=== PATIENT | male | born 1980 | race Caucasian/White ===

== ENCOUNTER → 2017-03-16 18:23 | Outpatient (CLI) | payer OTHER, MEDICAID, SELFPAY ==
[2017-03-16 18:47] LABS: Absolute Lymphocyte Count 1.78 X10^3/ul (0.83-4.51); Absolute Neutrophil Count 1.8 X10^3/uL (2.0-7.7); Basophil# 0.01 X10^3/uL; Basophil% 0.2 % (0-1); Eosinophil# 0.17 X10^3/uL; Eosinophils% 4.1 % (0-5); Hematocrit 33.8 % (40-54); Lymphocyte # 1.78 X10^3/ul (4.0); Lymphocyte % 42.6 % (19-41); Mean Corp Hgb Conc 32.5 g/gl (32-36); Mean Corpuscular Hgb 29.7 pg (27.0-32.0); Mean Corpuscular Volume 91.4 fL (80-94); Mean Platelet Vol. 10.6 fl (6.2-12.0); Monocyte% 9.6 % (0-10); Neutrophil # 1.82 X10^3/uL (2.7-7.7); Neutrophil % 43.5 % (47-70); Platelet Count 135 K/mm3 (150-450); RBC Distribution Width CV 15.2 % (11.6-14.6); RBC Distribution Width SD 50.4 fl (35.1-43.9); White Blood Count 4.2 K/mm3 (4.4-11.0)
[2017-03-16 18:49] LABS: POSITIVE COUNT NO; POSITIVE DIFFERENTIAL NO; POSITIVE MORPHOLOGY NO
[2017-03-16 18:53] LABS: Anion Gap 7 (5-15); BUN 24 mg/dL (7-18); BUN/Creat Ratio 89.6 RATIO (10-20); Calcium,Total 8.4 mg/dL (8.5-10.1); Chloride 102 mmol/L (98-107); Creatinine, Serum 0.27 mg/dL (0.70-1.30); EST Glomerular Filtration Rate 413 mL/min (>60); Est Glom Filt Rate - Afr Amer 499 mL/min (>60); Glucose 81 mg/dL (70-110); Potassium 3.7 mmol/L (3.5-5.1); Sodium Level 139 mmol/L (136-145)
== END ==
LOC: HHLAB 18:24 → LAB 03-17 12:33 → LABSPEC 03-17 12:34
PROVIDERS: Family Provider Family Medicine; PCP Family Medicine; Visit Provider Family Medicine
DX: G80.9 Cerebral palsy, unspecified (principal); Z87.01 Personal history of pneumonia (recurrent); R79.89 Other specified abnormal findings of blood chemistry
CPT/HCPCS: 80048; 85025

== ENCOUNTER 2017-04-07 22:35 | Emergency (ER) | payer OTHER, MEDICAID, SELFPAY ==
[2017-04-07 22:40] VITALS: BP 149/110; PULSE 103; RESP 17; TEMP 36.6; O2SAT 95; BMI 29.2
--- NOTE | 2017-04-07 22:54 | EKG12_ITS ---
Test Reason : Blood Pressure : / mmHG Vent. Rate : 095 BPM Atrial Rate : 095 BPM P-R Int : 164 ms QRS Dur : 098 ms QT Int : 370 ms P-R-T Axes : 050 -16 -07 degrees QTc Int : 464 ms Sinus rhythm Low voltage QRS (limb leads) T wave abnormality, consider anterolateral ischemia Prolonged QT Abnormal ECG Confirmed by ENRIKE VARGAS, BESS ([id number]), newspaper photo editor MICHELLE PERKINS ([id number]) on 04/09/2017 10:35:20 AM Referred By: AYDE Confirmed By:BESS CALVERT MD
--- NOTE | 2017-04-07 22:54 | RAD_ITS ---
STUDY: X-RAY CHEST REASON FOR EXAM: Male, 37 years old. Cough and shortness of breath. TECHNIQUE: Single AP portable view of the chest. COMPARISON: 02/19/2017. FINDINGS: There is a right-sided Port-A-Cath in stable position. There are hypoventilatory changes in both lung bases with slight increased markings. No new infiltrate is seen. There is no demonstrated pleural abnormality. There is borderline cardiomegaly. Normal mediastinum and rachelle. Normal visualized pulmonary arteries. The aorta is not visualized. The bony structures are unchanged. There is no demonstrated abnormality of the visualized soft tissue structures of the upper abdomen. RAD/Chest 1 View (Portable) IMPRESSION: Hypoventilatory changes. No new infiltrate is seen. Electronically Signed: Edis Dhaliwal MD at 23:26 EST Tel , Service support ,
[2017-04-07 23:27] VITALS: PULSE 101; RESP 24
[2017-04-07] MEDS: Ipratropium/Albuterol Sulfate 3 ML AMPUL.NEB INHALATION (23:27)
[2017-04-07 23:33] LABS: Absolute Lymphocyte Count 1.79 X10^3/ul (0.83-4.51); Absolute Neutrophil Count 2.7 X10^3/uL (2.0-7.7); Basophil# 0.02 X10^3/uL; Basophil% 0.4 % (0-1); Eosinophils% 3.8 % (0-5); Hematocrit 34.7 % (40-54); Hemoglobin 11.5 g/dl (13.0-16.5); Lymphocyte # 1.79 X10^3/ul (4.0); Lymphocyte % 34.4 % (19-41); Mean Corp Hgb Conc 33.1 g/gl (32-36); Mean Corpuscular Hgb 30.3 pg (27.0-32.0); Mean Corpuscular Volume 91.6 fL (80-94); Monocyte# 0.51 X10^3/uL; Monocyte% 9.8 % (0-10); Neutrophil # 2.66 X10^3/uL (2.7-7.7); Neutrophil % 51.2 % (47-70); Platelet Count 92 K/mm3 (150-450); RBC Distribution Width CV 14.9 % (11.6-14.6); Red Blood Count 3.79 M/mm3 (4.6-6.2); White Blood Count 5.2 K/mm3 (4.4-11.0)
[2017-04-07] MEDS: 0.9% Normal Saline 1,000 ML 1000 ML IV (23:40)
[2017-04-07 23:43] LABS: POSITIVE COUNT NO; POSITIVE DIFFERENTIAL NO; POSITIVE MORPHOLOGY NO
[2017-04-07 23:52] LABS: ALB/GLOB Ratio 0.6 RATIO (0.9-2.4); AST(SGOT) 55 U/L (15-37); Alanine Aminotransfer ALT/SGPT 73 U/L (16-61); Albumin, Serum 3.4 g/dL (3.2-5.0); Alkaline Phosphatase 220 U/L (45-117); Anion Gap 5 (5-15); BUN 17 mg/dL (7-18); BUN/Creat Ratio 39.4 RATIO (10-20); Calcium,Total 8.8 mg/dL (8.5-10.1); Chloride 102 mmol/L (98-107); Creatinine, Serum 0.43 mg/dL (0.70-1.30); EST Glomerular Filtration Rate 238 mL/min (>60); Est Glom Filt Rate - Afr Amer 288 mL/min (>60); Estimated Creatinine Clearance 169.57 ml/min; Globulin 5.5 g/dL (2.2-4.2); Glucose 75 mg/dL (74-106); Lipase 482 U/L (73-393); Potassium 4.5 mmol/L (3.5-5.1); Protein, Total 8.9 g/dL (6.4-8.2); Sodium Level 136 mmol/L (136-145)
[2017-04-07 23:53] LABS: Bacteria 0 SEEN /hpf (None Seen); Mucous, Urine 0 SEEN /hpf (<or=2+); Red Blood Cells-Urine 0 SEEN /hpf (0-5); Squamous Epithelial Cells - UA 0 SEEN /hpf (0-5); White Blood Cells 0 SEEN /hpf (0-5)
[2017-04-07 23:55] LABS: Color, Urine Straw (Yellow); Glucose, Dipstick Normal (Normal); Ketone-Dipstick Negative (Negative); Leukocyte Esterase-Dipstick Negative /ul (Negative); Nitrite-Dipstick Negative (Negative); Occult Blood-Urine Negative /ul (Negative); Protein-Dipstick Negative (Negative); Urine Bilirubin Dipstick Negative (Negative); Urine Clarity Clear (Clear); Urine Urobilinogen Normal (Normal)
--- NOTE | 2017-04-08 00:23 | ED.VISSUMM ---
- ER Visit Summary Date of Service: 04/08/17 Chief Complaint: Fast heart rate and low oxygen saturation History of Present Illness: The patient is a 37 M who presents with low oxygen saturations and fast heart rate. The patient does have a history of cerebral palsy and is nonverbal at baseline. Today they noticed that his oxygen went down to 89% on room air when normally he maintained sats of 97-98%. They do use oxygen at home as needed. He was placed on nasal cannula and his oxygen saturation improved. He was also slightly tachycardic with a heart rate 115 and had nausea with a few episodes of small emesis which mother reports were only about 10 cc. His temperature is been normal. He has been slightly more agitated today which is common when he is not feeling well. He has also had some congestion. He is concerned about possible pneumonia or aspiration. He does have a history of aspiration. Physical Examination: Initial heart rate 103 respiratory rate 17 pulse ox 95% on 3 L afebrile No distress Moist mucous membranes Heart regular rhythm slightly tachycardic Lungs are clear I do not appreciate rales rhonchi or wheezes Abdomen soft nondistended Patient is alert but nonverbal Spasticity noted Test Results: EKG shows sinus rhythm at a rate of 95 with some lateral T-wave inversions similar to prior. His chest x-ray is normal no focal infiltrate. Laboratory studies notable for anemia, thrombocytopenia, slight elevation of LFTs which appears similar to prior labs. His lipase is minimally elevated at 482. Lactic acid is normal. Influenza is negative. Emergency Department Course and Treatment: Patient was given a DuoNeb aerosol here. On reevaluation he is resting comfortably. He is maintaining normal oxygen saturations on nasal cannula. His heart rate is normal at 90 and he has maintained stable blood pressure with normal respiratory rate. I discussed observation versus close monitoring at home and outpatient follow-up given his remarkable workup here. Although he was hypoxic on room air he does use oxygen as needed at home and has no evidence of pneumonia and influenza swab was also negative. Family notes that they only live a couple of blocks away and have home health aides and home health nurses and actually have a home health nurse visit scheduled for tomorrow. They have oxygen at home. Mother stated she believed the patient will be more comfortable at home and prefers to take the patient home. They do understand return for new or worsening symptoms and were instructed on specific signs and symptoms to monitor for. Patient discharged. Treatment Plan: [] Disposition: Discharge Impression: Hypoxic respiratory failure Cerebral palsy Sinus tachycardia resolved This note was generated with [employer] dictation software. It may contain incorrect words, spelling, and punctuation that were not noted in review of the chart prior to signing ED Disposition - Plan for ED Patient: Chief Complaint: General Illness Referrals: Timmy Severino MD [Primary Care Provider] -
--- NOTE | 2017-04-08 00:28 | ED.DEP ---
ED Disposition - Plan for ED Patient: Chief Complaint: General Illness Instructions: ED Nausea Vomiting Referrals: Timmy Severino MD [Primary Care Provider] -
[2017-04-08 00:39] VITALS: BP 116/66; PULSE 95; RESP 17; O2SAT 93
== END 2017-04-08 01:01 | disposition home or self-care (01) ==
PROVIDERS: Emergency Provider Emergency Medicine; Family Provider Family Medicine; PCP Family Medicine
DX: J96.91 Respiratory failure, unspecified with hypoxia (principal); G80.9 Cerebral palsy, unspecified; R00.0 Tachycardia, unspecified; R11.2 Nausea with vomiting, unspecified; D64.9 Anemia, unspecified; D69.6 Thrombocytopenia, unspecified; K21.9 Gastro-esophageal reflux disease without esophagitis; G40.909 Epilepsy, unspecified, not intractable, without status epilepticus; K59.09 Other constipation; Z95.828 Presence of other vascular implants and grafts; Z79.899 Other long term (current) drug therapy
CPT/HCPCS: 71045; 80053; 81001; 83605; 83690; 85025; 87040; 87804; 93005; 94640; 96360; 96361; 99284; J7030; P9612; A4216

== ENCOUNTER 2017-04-22 13:10 | Outpatient (RCR) | payer OTHER, MEDICAID, SELFPAY ==
--- NOTE | 2017-04-22 14:42 | HP.PTEVAL_ITS ---
Patient's Visit Information KRISS MICHAEL is a 37 year old M referred to Physical Therapy by Timmy GARCIA with a diagnosis of CP. Date of Evaluation: 04/22/17 Physical Therapist: Yuko Mckeon - Visit Plan Frequency: 1x/Week - Subjective Subjective: Wheel Chair evaluation current chair 2010-[employer]. 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 Last 10 years he has grown a lot and outgrown the current chair. Tendency to aspirate. Uses a tray multiple times a day. Feet swell during the day- wants foot hangers that can be elevated and put back down. Leans to the right. Tilt in space w/c currently with an IV paperhanger contractor. Does have anti-tip. Is unable to navigate his own chair. No stairs that he needs to use with ramps into the stairs. Does have elevator as needed. Uses estefany lifts (full dependent transfers) for ceiling tracts all over the house. In his chair most of the day- when not in the chair is in the hospital bed- can be in reclyner but is rarely there. Mother is caregiver with aids daily (5-10 hours a day). Does not currently have AFO's and it is not currently an issue so they plan not to get them- has Botox in both UE and LE. Family has 2 accessible vans- power lifts. Has a stander that he has outgrown. He was standing but is no longer standing. No pain. - Objective Patient is w/c bound- it is his primary mode of transportation. Sitting posture is poor and he is dependent on others for balance. He leans to the right and his head is also leaned to the right. He has no active movement of his trunk or lower extremity. Hypertonicity in bilateral LE. Ankle ROM: DF: neutral PF: 15 degrees Knee: extn- 10 degrees Flexion: 45 degrees Hip: 90 degrees of flexion Add: to neutral, Abd: 30 degrees - Rehabilitation Potential Physical Therapy Diagnosis: Patient presents with hypmobility- he has decreased ROM, strength and functional mobility- he is appropriate for w/c for primary mode of transportation - Anticipated Interventions Assistive Devices: Wheelchair Thank you for the opportunity to evaluate your patient. For Medicare and Medicare HMO plans, please review the plan of care and approve it. It will need to be FAXED BACK to us at [phone] for Medicare purposes. Please let me know if there are questions or concerns regarding this plan of care. Physician Signature: Date:
--- NOTE | 2017-05-31 14:36 | HP.PTDCSUM ---
HP - PT D/C Summary It has been my pleasure to treat KRISS MICHAEL under orders from DR.JMILLE Shona for the diagnosis of CP for a total of 1 visit(s). Discharge Date: Please see the following information for a summary of their discharge status. - D/C Information If there are questions or concerns regarding this patient's physical therapy, please feel free to call me at [phone]. Thank you for the referral of this patient. Sincerely, Yuko Mckeon
== END 2017-04-22 19:00 | disposition home or self-care (01) ==
LOC: PT 13:10
PROVIDERS: Family Provider Family Medicine; PCP Family Medicine; Visit Provider Family Medicine
DX: G80.9 Cerebral palsy, unspecified (principal)
CPT/HCPCS: 97162

== ENCOUNTER → 2017-05-04 13:44 | Outpatient (CLI) | payer BC, MEDICAID, SELFPAY ==
[2017-05-04 14:06] LABS: Hematocrit 35.6 % (40-54); Hemoglobin 11.3 g/dl (13.0-16.5); Mean Corp Hgb Conc 31.7 g/gl (32-36); Mean Corpuscular Hgb 29.5 pg (27.0-32.0); Mean Platelet Vol. 10.5 fl (6.2-12.0); Platelet Count 112 K/mm3 (150-450); RBC Distribution Width CV 14.9 % (11.6-14.6); RBC Distribution Width SD 50.4 fl (35.1-43.9); Red Blood Count 3.83 M/mm3 (4.6-6.2); Scan Indicated on CBC? Y/N NO; White Blood Count 3.8 K/mm3 (4.4-11.0)
[2017-05-04 14:18] LABS: Anion Gap 7 (5-15); BUN 24 mg/dL (7-18); BUN/Creat Ratio 72.5 RATIO (10-20); Calcium,Total 8.5 mg/dL (8.5-10.1); Chloride 106 mmol/L (98-107); Creatinine, Serum 0.33 mg/dL (0.70-1.30); EST Glomerular Filtration Rate 323 mL/min (>60); Est Glom Filt Rate - Afr Amer 391 mL/min (>60); Glucose 106 mg/dL (74-106); Potassium 3.8 mmol/L (3.5-5.1); Sodium Level 141 mmol/L (136-145)
== END ==
PROVIDERS: Family Provider Family Medicine; PCP Family Medicine; Visit Provider Family Medicine
DX: G80.1 Spastic diplegic cerebral palsy (principal); Z87.01 Personal history of pneumonia (recurrent); Z95.828 Presence of other vascular implants and grafts
CPT/HCPCS: 80048; 85027

== ENCOUNTER 2017-05-30 12:33 | Emergency (ER) | payer BC, MEDICAID, SELFPAY ==
[2017-05-30 12:34] VITALS: BP 154/91; PULSE 115; RESP 18; TEMP 36.7; O2SAT 91
[2017-05-30 12:35] VITALS: BP 154/91; PULSE 113; RESP 20; TEMP 36.7; O2SAT 93; BMI 30.2
--- NOTE | 2017-05-30 13:14 | RAD_ITS ---
STUDY: X-RAY CHEST REASON FOR EXAM: Male, 37 years old. Shortness of breath, dyspnea TECHNIQUE: Single AP portable view of the chest. COMPARISON: 04/07/2017. FINDINGS: Right Port-A-Cath in place with the tip of the lower SVC. Chronic elevated right hemidiaphragm. The lungs are clear and expanded. There is no demonstrated pleural abnormality. Normal size heart. Normal mediastinum and rachelle. Normal visualized pulmonary arteries. Normal visualized aortic arch and descending thoracic aorta. Normal visualized thoracic spine. Normal visualized ribs, clavicles, and shoulders. There is no demonstrated abnormality of the visualized soft tissue structures of the upper abdomen. RAD/Chest 1 View (Portable) IMPRESSION: No acute cardiopulmonary disease. Electronically Signed: Tony Bryan DO at 14:17 EDT , Service support ,
--- NOTE | 2017-05-30 13:18 | ED.DCSUM_ITS ---
- ER Visit Summary Date of Service: 05/30/17 Chief Complaint: [] Seems congested coughing history of aspiration History of Present Illness: The patient is a 37 M [] history of cerebral palsy full care patient at home with family as needed home oxygen, per the family generally he does well but on occasion he develops aspiration pneumonia for the last few days he appears to have some labored respirations intermittently cough low-grade fever, He continued to labor to breathe despite all of the usual home remedies the family tried because of the prior history of aspiration sepsis pneumonia and the concern that he might deteriorate at home, he was brought in for evaluation he also gets agitated for nonspecific reasons and seems to have heavy breathing so he was given an Ativan tablet that also seemed to help he is tube fed he has a Mediport in he uses a diaper, his general health has otherwise been unremarkable he has been tolerating his tube feeds there is been no obvious gagging or aspiration on tube feeds at his baseline he holds his head to the left and his tongue hangs out he is currently doing that, at night his oxygen level set can drop to 91 and he is placed on oxygen supplemental, but for the most part his O2 sats are 95-96 on room air Physical Examination: [] Vital signs are unremarkable he is on 2 L of oxygen his pulse ox is 96% he is in no distress he is unable to basically provide any history the family is able to communicate him verbally and with gestures there is no laboring at all of any kind clinically he looks well except he is turning his head to the right and his tongue is sticking out of his mouth metastases baseline for him his oral cavity seems red the airways intact were without any fluid debris or particulate matter the lungs sound clear the heart tones are normal the abdomen is obese but soft nontender PEG tube is in place, he is at his neurologic baseline per the family he has edema to both lower and upper extremities Test Results: [] Emergency Department Course and Treatment: [] All of the above in his history debilitated condition evaluation pursued by his labs chest x-ray unremarkable he is resting company his vital signs appear unchanged pulse ox 91-92 I explained all the above to the family, they understand and agree with discharge home to continue his management at home Treatment Plan: [] Disposition: [] Impression: [] Respiratory distress with failure of outpatient therapy resolved , history of cerebral palsy aspiration pneumonia respiratory failure sepsis This note was generated with Dragon dictation software. It may contain incorrect words, spelling, and punctuation that were not noted in review of the chart prior to signing ED Disposition - Plan for ED Patient: Chief Complaint: Fever Referrals: Timmy Severino MD [Primary Care Provider] -
[2017-05-30 13:24] VITALS: PULSE 91; RESP 17; O2SAT 96
[2017-05-30] MEDS: Ipratropium/Albuterol Sulfate 3 ML AMPUL.NEB INHALATION (13:24)
[2017-05-30 13:56] LABS: Absolute Lymphocyte Count 1.47 X10^3/ul (0.83-4.51); Absolute Neutrophil Count 3.4 X10^3/uL (2.0-7.7); Basophil# 0.01 X10^3/uL; Basophil% 0.2 % (0-1); Eosinophils% 1.8 % (0-5); Hematocrit 35.2 % (40-54); Hemoglobin 11.4 g/dl (13.0-16.5); Lymphocyte # 1.47 X10^3/ul (4.0); Lymphocyte % 26.7 % (19-41); Mean Corp Hgb Conc 32.4 g/gl (32-36); Mean Corpuscular Hgb 29.8 pg (27.0-32.0); Mean Corpuscular Volume 91.9 fL (80-94); Mean Platelet Vol. 10.2 fl (6.2-12.0); Monocyte% 9.1 % (0-10); Neutrophil # 3.42 X10^3/uL (2.7-7.7); Neutrophil % 62.2 % (47-70); POSITIVE COUNT NO; POSITIVE DIFFERENTIAL NO; POSITIVE MORPHOLOGY NO; Platelet Count 112 K/mm3 (150-450); RBC Distribution Width CV 14.4 % (11.6-14.6); RBC Distribution Width SD 48.1 fl (35.1-43.9); Red Blood Count 3.83 M/mm3 (4.6-6.2); White Blood Count 5.5 K/mm3 (4.4-11.0)
--- NOTE | 2017-05-30 13:58 | NURSING ---
NO LW OR POA
[2017-05-30 14:07] LABS: Anion Gap 8 (5-15); BUN 14 mg/dL (7-18); Calcium,Total 8.7 mg/dL (8.5-10.1); Chloride 107 mmol/L (98-107); Creatinine, Serum 0.52 mg/dL (0.70-1.30); EST Glomerular Filtration Rate 193 mL/min (>60); Est Glom Filt Rate - Afr Amer 233 mL/min (>60); Estimated Creatinine Clearance 140.22 ml/min; Glucose 95 mg/dL (74-106); Sodium Level 143 mmol/L (136-145)
[2017-05-30 14:13] LABS: Bacteria 0 SEEN /hpf (None Seen); Mucous, Urine 0 SEEN /hpf (<or=2+); Red Blood Cells-Urine 0 SEEN /hpf (0-5); Squamous Epithelial Cells - UA 0 SEEN /hpf (0-5); White Blood Cells 0 SEEN /hpf (0-5)
[2017-05-30 14:14] LABS: Color, Urine Yellow (Yellow); Glucose, Dipstick Normal (Normal); Ketone-Dipstick Negative (Negative); Leukocyte Esterase-Dipstick Negative /ul (Negative); Nitrite-Dipstick Negative (Negative); Occult Blood-Urine Negative /ul (Negative); Protein-Dipstick Negative (Negative); Urine Bilirubin Dipstick Negative (Negative); Urine Clarity Clear (Clear); Urine Urobilinogen Normal (Normal)
[2017-05-30 14:21] LABS: Lactic Acid 1.1 mmol/L (0.4-2.0)
--- NOTE | 2017-05-30 15:31 | ED.DEP ---
ED Disposition - Plan for ED Patient: Chief Complaint: Fever Instructions: ED Upper Resp Infec No Abx Tx Referrals: Timmy Severino MD [Primary Care Provider] -
== END 2017-05-30 16:22 | disposition home or self-care (01) ==
LOC: ED 14:06
PROVIDERS: Emergency Provider Emergency Medicine; Family Provider Family Medicine; PCP Family Medicine
DX: R06.03 Acute respiratory distress (principal); R06.00 Dyspnea, unspecified; R60.0 Localized edema; G80.9 Cerebral palsy, unspecified; Z87.01 Personal history of pneumonia (recurrent); Z87.09 Personal history of other diseases of the respiratory system; Z86.19 Personal history of other infectious and parasitic diseases; Z93.1 Gastrostomy status; Z95.828 Presence of other vascular implants and grafts; Z99.81 Dependence on supplemental oxygen; Z79.899 Other long term (current) drug therapy
CPT/HCPCS: 36591; 71045; 80048; 81001; 83605; 85025; 87086; 87880; 94640; 99282; J7030; J7040; A4216

== ENCOUNTER → 2017-07-22 15:44 | Outpatient (CLI) | payer BC, MEDICAID, SELFPAY ==
[2017-07-22 16:00] LABS: Absolute Lymphocyte Count 1.33 X10^3/ul (0.83-4.51); Absolute Neutrophil Count 1.6 X10^3/uL (2.0-7.7); Eosinophil# 0.09 X10^3/uL; Eosinophils% 2.6 % (0-5); Hematocrit 35.3 % (40-54); Hemoglobin 11.5 g/dl (13.0-16.5); Lymphocyte # 1.33 X10^3/ul (4.0); Lymphocyte % 38.8 % (19-41); Mean Corp Hgb Conc 32.6 g/gl (32-36); Mean Corpuscular Hgb 29.3 pg (27.0-32.0); Mean Corpuscular Volume 89.8 fL (80-94); Mean Platelet Vol. 10.7 fl (6.2-12.0); Monocyte# 0.38 X10^3/uL; Monocyte% 11.1 % (0-10); Neutrophil # 1.62 X10^3/uL (2.7-7.7); Neutrophil % 47.2 % (47-70); Platelet Count 106 K/mm3 (150-450); RBC Distribution Width CV 14.7 % (11.6-14.6); Red Blood Count 3.93 M/mm3 (4.6-6.2); White Blood Count 3.4 K/mm3 (4.4-11.0)
[2017-07-22 16:10] LABS: Anion Gap 6 (5-15); BUN 16 mg/dL (7-18); BUN/Creat Ratio 42.6 RATIO (10-20); Calcium,Total 8.9 mg/dL (8.5-10.1); Chloride 105 mmol/L (98-107); Creatinine, Serum 0.38 mg/dL (0.70-1.30); EST Glomerular Filtration Rate 279 mL/min (>60); Est Glom Filt Rate - Afr Amer 337 mL/min (>60); Glucose 82 mg/dL (74-106); Potassium 4.2 mmol/L (3.5-5.1); Sodium Level 139 mmol/L (136-145)
[2017-07-22 16:15] LABS: POSITIVE COUNT NO; POSITIVE DIFFERENTIAL NO; POSITIVE MORPHOLOGY NO
== END ==
PROVIDERS: Family Provider Family Medicine; PCP Family Medicine; Visit Provider Family Medicine
DX: G80.9 Cerebral palsy, unspecified (principal); Z87.01 Personal history of pneumonia (recurrent)
CPT/HCPCS: 80048; 85025

== ENCOUNTER → 2017-08-20 12:59 | Outpatient (CLI) | payer BC, MEDICAID, SELFPAY | PROVIDERS: Family Provider Family Medicine; PCP Family Medicine; Visit Provider Family Medicine | DX: T82.598A Other mechanical complication of other cardiac and vascular devices and implants, initial encounter (principal) | CPT/HCPCS: 96523; A4216 ==

== ENCOUNTER 2017-09-16 15:09 | Inpatient (IN) | payer BC, MEDICAID, SELFPAY ==
[2017-09-16] VITALS (18 sets, daily range): BP systolic 99–135; BP diastolic 58–111; PULSE 108–133; RESP 16–28; TEMP 36.4–38; O2SAT 91–98; BMI 30.2; BMI 30.3; BMI 34.4
--- NOTE | 2017-09-16 15:30 | ED.RN ---
patient had white emesis and took a deep breath before mouth could be completely suctioned out by this nurse. md notified.
[2017-09-16] MEDS: Ipratropium/Albuterol Sulfate 3 ML AMPUL.NEB INHALATION (15:40)
[2017-09-16] MEDS: Albuterol 2.5 MG/3 ML VIAL.NEB. INHALATION (15:40)
--- NOTE | 2017-09-16 16:11 | ED.VISSUMM ---
- ER Visit Summary Date of Service: 09/16/17 Chief Complaint: Rapid heart rate, rapid respiratory rate and low pulse ox History of Present Illness: The patient is a 37 M who has significant past medical history for cerebral palsy, aspiration pneumonia and is totally dependent on parents for care. He has a LONG tube left upper quadrant a baclofen pump right upper quadrant port right subclavian and colostomy left lower quadrant. He is nonverbal. History that was obtained was per parents. He has not required a visit to the emergency room since May 2017. He has not been admitted to any hospital past 12 months. Physical Examination: He is tachycardic and tachypneic. Pulse ox 92% on 2 L. He normally does not wear oxygen during the day. He is not febrile. Blood pressure is low at 99/84. Pupils equal round reactive. Mucosa moist. Poor dentition. Nares patent. Trachea midline. There is no stridor. He has wheezing heard throughout. Heart is rapid and regular. There is no retractions or use of accessory muscles. Abdomen is firm but not tender. He has 2-3+ edema the lower extremities. Neurologically is at baseline per mom and dad. Test Results: Portable chest x-ray reveals bilateral infiltrates compared to prior x-ray dated May 30, 2017. Monitor reveals a sinus tachycardia rate of 127. White count is normal. Differential is normal. White blood count is 112. BMP reveals slightly elevated BUN of 20. BUN to creatinine ratio is approximately 30-1. Lactate is 2.6 Emergency Department Course and Treatment: IV was established. CBC, BMP and lactate were obtained. Chest x-ray was obtained because of the abnormal breath sounds. Because he is wheezing he was treated with a DuoNeb and albuterol aerosol. I was informed by his nurse that he vomited and aspirated. He has not had a drop in his pulse ox. There is been a drop in his heart rate, however. Treatment Plan: Unasyn for aspiration pneumonia. Disposition: To be admitted since he has bilateral pneumonia and is tachycardic, tachypneic with hypoxia without oxygen Impression: 1. Bilateral pneumonia, aspiration 2. Respiratory failure with hypoxia 3. Sepsis severe 4. Bronchospasm 5. History of cerebral palsy This note was generated with [employer] software. It may contain incorrect words, spelling, and punctuation that were not noted in review of the chart prior to signing ED Disposition - Plan for ED Patient: Chief Complaint: Shortness of Breath Referrals: Timmy Severino MD [Primary Care Provider] -
--- NOTE | 2017-09-16 16:14 | ED.DCSUM_ITS ---
- ER Visit Summary Date of Service: 09/16/17 Chief Complaint: Rapid heart rate, rapid respiratory rate and low pulse ox History of Present Illness: The patient is a 37 M who has significant past medical history for cerebral palsy, aspiration pneumonia and is totally dependent on parents for care. He has a LONG tube left upper quadrant a baclofen pump right upper quadrant port right subclavian and colostomy left lower quadrant. He is nonverbal. History that was obtained was per parents. He has not required a visit to the emergency room since May 2017. He has not been admitted to any hospital past 12 months. Physical Examination: He is tachycardic and tachypneic. Pulse ox 92% on 2 L. He normally does not wear oxygen during the day. He is not febrile. Blood pressure is low at 99/84. Pupils equal round reactive. Mucosa moist. Poor dentition. Nares patent. Trachea midline. There is no stridor. He has wheezing heard throughout. Heart is rapid and regular. There is no retractions or use of accessory muscles. Abdomen is firm but not tender. He has 2-3+ edema the lower extremities. Neurologically is at baseline per mom and dad. Test Results: Portable chest x-ray reveals bilateral infiltrates compared to prior x-ray dated May 30, 2017. Monitor reveals a sinus tachycardia rate of 127. White count is normal. Differential is normal. White blood count is 112. BMP reveals slightly elevated BUN of 20. BUN to creatinine ratio is approximately 30-1. Lactate is 2.6 Emergency Department Course and Treatment: IV was established. CBC, BMP and lactate were obtained. Chest x-ray was obtained because of the abnormal breath sounds. Because he is wheezing he was treated with a DuoNeb and albuterol aerosol. I was informed by his nurse that he vomited and aspirated. He has not had a drop in his pulse ox. There is been a drop in his heart rate, however. Treatment Plan: Unasyn for aspiration pneumonia. Disposition: To be admitted since he has bilateral pneumonia and is tachycardic , tachypneic with hypoxia without oxygen Impression: 1. Bilateral pneumonia, aspiration 2. Respiratory failure with hypoxia 3. Sepsis severe 4. Bronchospasm 5. History of cerebral palsy This note was generated with [employer] software. It may contain incorrect words, spelling, and punctuation that were not noted in review of the chart prior to signing ED Disposition - Plan for ED Patient: Chief Complaint: Shortness of Breath Referrals: Timmy Severino MD [Primary Care Provider] -
--- NOTE | 2017-09-16 16:15 | RAD_ITS ---
STUDY: X-RAY CHEST REASON FOR EXAM: Male, 37 years old. Respiratory distress TECHNIQUE: Frontal and lateral views of the chest. COMPARISON: May 30, 2017 FINDINGS: Right IJ MediPort terminates in the right atrium unchanged. Right lower lobe airspace disease and left perihilar infiltrate. Mild edema. Elevated right hemidiaphragm. There is no demonstrated pleural abnormality. Normal size heart. Normal mediastinum and rachelle. Normal visualized pulmonary arteries. Normal visualized aortic arch and descending thoracic aorta. Normal visualized thoracic spine. Normal visualized ribs, clavicles, and shoulders. There is no demonstrated abnormality of the visualized soft tissue structures of the upper abdomen. RAD/Chest PA and Lateral IMPRESSION: Bilateral airspace disease. recommend follow-up to resolution. Electronically Signed: Luis Carlos Smith MD at 16:41 EDT , Service support ,
[2017-09-16 16:36] LABS: Absolute Lymphocyte Count 1.82 X10^3/ul (0.83-4.51); Absolute Neutrophil Count 3.6 X10^3/uL (2.0-7.7); Basophil# 0.01 X10^3/uL; Basophil% 0.2 % (0-1); Eosinophil# 0.08 X10^3/uL; Eosinophils% 1.3 % (0-5); Hematocrit 36.7 % (40-54); Lymphocyte # 1.82 X10^3/ul (4.0); Lymphocyte % 28.8 % (19-41); Mean Corp Hgb Conc 32.7 g/gl (32-36); Mean Corpuscular Hgb 29.8 pg (27.0-32.0); Mean Corpuscular Volume 91.1 fL (80-94); Mean Platelet Vol. 10.7 fl (6.2-12.0); Monocyte# 0.79 X10^3/uL; Monocyte% 12.5 % (0-10); Neutrophil # 3.62 X10^3/uL (2.7-7.7); Neutrophil % 57.2 % (47-70); Platelet Count 112 K/mm3 (150-450); RBC Distribution Width CV 15.1 % (11.6-14.6); Red Blood Count 4.03 M/mm3 (4.6-6.2); White Blood Count 6.3 K/mm3 (4.4-11.0)
[2017-09-16 16:38] LABS: Anion Gap 6 (5-15); BUN 20 mg/dL (7-18); BUN/Creat Ratio 33.6 RATIO (10-20); Calcium,Total 8.8 mg/dL (8.5-10.1); Chloride 102 mmol/L (98-107); EST Glomerular Filtration Rate 164 mL/min (>60); Est Glom Filt Rate - Afr Amer 198 mL/min (>60); Estimated Creatinine Clearance 121.53 ml/min; Glucose 82 mg/dL (74-106); POSITIVE COUNT NO; POSITIVE DIFFERENTIAL NO; POSITIVE MORPHOLOGY NO; Potassium 4.6 mmol/L (3.5-5.1); Sodium Level 137 mmol/L (136-145)
--- NOTE | 2017-09-16 16:49 | ED.RN ---
ONE BLOOD CULTURE OBTAINED THROUGH THE PORT. PATIENT HAS GENERALIZED EDEMA. OK WITH MD TO ONLY TAKE BLOOD CULTURE X1 D/T DIFFICULT IV STICK. PARENT OK WITH THIS PLAN.
[2017-09-16 16:52] LABS: Lactic Acid 2.6 mmol/L (0.4-2.0)
--- NOTE | 2017-09-16 16:54 | ED.RN ---
critical lactic of 2.[address] De La Torre notified. No new orders att this time
--- NOTE | 2017-09-16 16:59 | NURSING ---
DR MATT DUNCAN
--- NOTE | 2017-09-16 17:49 | PCM.HP.STD ---
Problem List (1) Severe sepsis Status: Acute (2) Aspiration pneumonia Status: Acute Qualifiers: Aspiration pneumonia type: unspecified Laterality: bilateral Lung location: lower lobe of lung Qualified Code(s): J69.0 - Pneumonitis due to inhalation of food and vomit History of Present Illness Date of Admission: 09/16/17 Chief Complaint: tachycardia. tachypnea. spastisity. The patient is a 37 year old M who presents from home with noted to be tachypneic or spastic tachycardic. History is obtained through the emergency room physician as well as the patient's family. Patient has advanced cerebral palsy and is unable to communicate. Family who cares for him, notes that he has those symptoms in the skin be a manifestation of an underlying illness and as the patient is unable to articulate anything other brought into the hospital. Patient was found to be in severe sepsis with lactic acid of 2.6, tachycardia and tachypnea. Chest x-ray showed bilateral lower lobe infiltrates. Patient has not been hospitalized recently certainly within the past 3 months and patient is visualized gurgling. Family denies any obvious aspiration event the patient does have a PEG tube in place and does not eat or drink anything by mouth. Patient did receive Unasyn in the emergency room [] Past Medical History Past Medical History (Chronic Problems): Chronic Problems (Last Reviewed 09/07/17 @ 09:34 by Maury Waite MD) Nonrheumatic mitral valve prolapse (Chronic) C. 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) Medical History: Medical History (Last Reviewed 09/16/17 @ 17:51 by Torey James DO) Nonrheumatic mitral valve prolapse (Chronic) I34.1 Cerebral palsy (Chronic) G80.9 Quadriplegic Severe mental retardation Chronic constipation PEG tube Allergies cisapride monohydrate [From Propulsid] Allergy (Verified 05/30/17 12:34) Rash codeine Adverse Reaction (Verified 05/30/17 12:34) hallucinations metronidazole [From Flagyl] Adverse Reaction (Verified 05/30/17 12:34) Rash morphine Adverse Reaction (Verified 05/30/17 12:34) Hallucinations vancomycin Adverse Reaction (Verified 05/30/17 12:34) renal failure dust Allergy (Uncoded 05/30/17 12:34) Other Home Medications: Ambulatory Orders Medication Instructions Recorded Simethicone 40MG/0.6ML [Mylicon] 40 mg GT TID 11/09/13 Baclofen 734.1 mcg INTRATH CONT 01/12/14 Lactobacillus Combination No.4 1 cap GT DAILY 01/12/14 [Probiotic] Pantoprazole Sodium [Protonix] 20 ml GT BID 08/09/14 Senna/Docusate Sodium 20 ml GT PRN PRN 08/03/15 Ondansetron HCl [Zofran Solution] 5 ml GT TID PRN PRN 08/30/15 Polyethylene Glycol 3350 [Miralax] 17 gm GT DAILY 08/30/15 Magnesium Hydroxide [Milk Of 35 - 50 ml GT DAILY PRN PRN 12/20/15 Magnesia] Metoclopramide [Reglan Solution] 5 mg GT TID 12/20/15 Lactose-Reduced Food/Fiber [Jevity 237 ml GT 4X/DAY 03/11/16 1 [place] Liquid] Lactulose [Chronulac] 20 gm GT DAILY 06/01/16 Phenobarbital 60 mg GT BID 02/19/17 furosemide 40 mg/5 mL (8 mg/mL) 20 mg PO QDAY #500 ml 09/09/17 oral solution Cetirizine HCl [Allergy Relief] 10 ml GT DAILY 09/16/17 Surgical History: Surgical History (Last Reviewed 09/16/17 @ 17:51 by Torey James DO) H/O eye surgery (Resolved) Z98.890 Surgical History: - - Insertion of a baclofen pump which has been replaced twice since then. PEG tube insertion. Left colostomy Psychiatric History: No pertinent psych hx Lives: With Family Smoking Status: Never smoker Tobacco Use: Non-smoker - *Family History Maternal Family History: Family History (Last Reviewed 09/16/17 @ 17:51 by Torey James DO) Mother Hypertension History Items: No pertinent history, - - None significant Paternal Family History: Family History (Last Reviewed 09/16/17 @ 17:51 by Torey James DO) Mother Hypertension History Items: No pertinent history Review of Systems Cardiovascular: Reports: Edema Respiratory: Reports: Shortness of Breath Comment: Unable to obtain from the patient as he is nonverbal. Reason for to the history of present illness for further details. VTE Information - Inpt Only VTE Present on Admission: No VTE Mechan Device Prophylaxis: None VTE Pharm Prophylaxis ordered?: Yes Patient Problems: Active and Suspected Problems (Last Reviewed 09/07/17 @ 09:34 by Maury Waite MD) Severe sepsis (Acute) Aspiration pneumonia (Acute) - Physical Exam General: - - Awake. Eyes are open. Nonverbal. HEENT: Atraumatic, Normocephalic, - - Macroglossia. No scleral icterus Oral: Moist Mucosa, No Gingival or Mucosal Lesions/ Ulcerations, - - Edentulous Neck: No Nodes, Thyroid Normal Size and Texture Lungs: Diminished, - - Coarse breath sounds bilaterally Cardiovascular: Regular Rhythm, Normal S1, Normal S2, Tachycardic Abdomen: Bowel Sounds Present, Soft, Non Tender, Non-Distended, - - PEG tube in left upper quadrant that is intact. Colostomy in left lower quadrant that is intact with some perhaps some contact dermatitis from the adhesives. Extremities: No Calf Tenderness, Edema - Trace lower extremity Skin: - - Contact dermatitis around the colostomy. Numerous left forearm 1 cm lesions extending down to his hand. Nonvesicular. Macular in appearance and slightly raised. Musculoskeletal: No Tenderness to Palpation of Joints or Extremities, Muscle Wasting Neurological: - - Extensor posturing in the upper extremities increased muscle tone throughout Vital Signs Temp Pulse Resp BP Pulse Ox 36.4 C L 123 H 16 99/84 H 95 09/16/17 15:11 09/16/17 17:00 09/16/17 17:00 09/16/17 15:11 09/16/17 17:00 Oxygen Flow Rate (L/min) 2 Oxygen Delivery Method Nasal Cannula Weight: 70.307 kg Body Mass Index (BMI) 30.2 Laboratory Tests Past 24 Hrs 09/16/17 09/16/17 09/16/17 16:15 16:15 16:15 WBC 6.3 RBC 4.03 L Hgb 12.0 L Hct 36.7 L MCV 91.1 MCH 29.8 MCHC 32.7 RDW 15.1 H RDW Differential 50.0 H Plt Count 112 L MPV 10.7 Immature Gran % (Auto) 0.000 Neut % (Auto) 57.2 Lymph % (Auto) 28.8 Henry % (Auto) 12.5 H Eos % (Auto) 1.3 Baso % (Auto) 0.2 Absolute Neuts (auto) 3.6 Absolute Lymphs (auto) 1.82 Total Counted Not Reportable Sodium 137 Potassium 4.6 Chloride 102 Carbon Dioxide 29.0 Anion Gap 6 BUN 20 H Creatinine 0.60 L Estim Creat Clear Calc 121.53 Est GFR (MDRD) Af Amer 198 Est GFR (MDRD) Non-Af 164 BUN/Creatinine Ratio 33.6 H Glucose 82 Lactic Acid 2.6 H Calcium 8.8 Chest x-ray reviewed and is poor study due to points poor effort but does show increased pulmonary edema change from May of this year. Assessment/Plan All Active Problems (Last Reviewed 09/07/17 @ 09:34 by Maury Waite MD) Severe sepsis (Acute) Aspiration pneumonia (Acute) H/O eye surgery (Resolved) Aspiration pneumonia (Acute) Sepsis (Acute) Edema (Acute) Tachycardia (Acute) Difficult intravenous access (Acute) Sepsis (Acute) C. difficile colitis (Resolved) 1. Severe sepsis Secondary to pneumonia IV fluids Recheck lactic acid Patient is on Lasix just solely for edema. That is going to be held for now. Blood cultures ordered Will also check urine studies as well. Should be noted that the patient does not have a catheter at baseline uses diapers. 2. Suspected aspiration pneumonia Continue with Unasyn Pulmonary toilet with bronchodilators as well as vest therapy Check sputum culture. Check urinary antigens for Streptococcus and Legionella. 3. Cerebral palsy Advanced and complicates care Family inquired about being transferred to [facility] rather than staying here. I informed them that I am certainly comfortable with patient staying here with his pneumonia and cerebral palsy. Though I did leave that up to the family if they would prefer to stay here rather than go to [facility] since I brought that up. They stated that they would prefer he be admitted here. 4. DVT prophylaxis with Lovenox 5. Advanced care planning: Without my prompting the family brought up not wishing to discuss DNR as a felt that when they are asked that at other times that they are almost being coerced into making the patient DNR. They do not wish for the patient have a DNR status at this time was for him to be full CODE STATUS. I did try to diffuse situation that they brought up by saying that generally when it is asked should be just to clarify rather than try to make them make a decision that they are uncomfortable with. Code Visit Inpatient E&M: 77539 Init Hosp L3
--- NOTE | 2017-09-16 17:52 | NURSING ---
PCU SEVERE SEPSIS, PNEUMONIA MATT
--- NOTE | 2017-09-16 17:58 | HP.PCM_ITS ---
Problem List (1) Severe sepsis Status: Acute (2) Aspiration pneumonia Status: Acute Qualifiers: Aspiration pneumonia type: unspecified Laterality: bilateral Lung location: lower lobe of lung Qualified Code(s): J69.0 - Pneumonitis due to inhalation of food and vomit History of Present Illness Date of Admission: 09/16/17 Chief Complaint: tachycardia. tachypnea. spastisity. The patient is a 37 year old M who presents from home with noted to be tachypneic or spastic tachycardic. History is obtained through the emergency room physician as well as the patient's family. Patient has advanced cerebral palsy and is unable to communicate. Family who cares for him, notes that he has those symptoms in the skin be a manifestation of an underlying illness and as the patient is unable to articulate anything other brought into the hospital. Patient was found to be in severe sepsis with lactic acid of 2.6, tachycardia and tachypnea. Chest x-ray showed bilateral lower lobe infiltrates. Patient has not been hospitalized recently certainly within the past 3 months and patient is visualized gurgling. Family denies any obvious aspiration event the patient does have a PEG tube in place and does not eat or drink anything by mouth. Patient did receive Unasyn in the emergency room [] Past Medical History Past Medical History (Chronic Problems): Chronic Problems (Last Reviewed 09/07/17 @ 09:34 by Maury Waite MD) Nonrheumatic mitral valve prolapse (Chronic) C. 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) Medical History: Medical History (Last Reviewed 09/16/17 @ 17:51 by Torey James DO) Nonrheumatic mitral valve prolapse (Chronic) I34.1 Cerebral palsy (Chronic) G80.9 Quadriplegic Severe mental retardation Chronic constipation PEG tube Allergies cisapride monohydrate [From Propulsid] Allergy (Verified 05/30/17 12:34) Rash codeine Adverse Reaction (Verified 05/30/17 12:34) hallucinations metronidazole [From Flagyl] Adverse Reaction (Verified 05/30/17 12:34) Rash morphine Adverse Reaction (Verified 05/30/17 12:34) Hallucinations vancomycin Adverse Reaction (Verified 05/30/17 12:34) renal failure dust Allergy (Uncoded 05/30/17 12:34) Other Home Medications: Ambulatory Orders Medication Instructions Recorded Simethicone 40MG/0.6ML [Mylicon] 40 mg GT TID 11/09/13 Baclofen 734.1 mcg INTRATH CONT 01/12/14 Lactobacillus Combination No.4 1 cap GT DAILY 01/12/14 [Probiotic] Pantoprazole Sodium [Protonix] 20 ml GT BID 08/09/14 Senna/Docusate Sodium 20 ml GT PRN PRN 08/03/15 Ondansetron HCl [Zofran Solution] 5 ml GT TID PRN PRN 08/30/15 Polyethylene Glycol 3350 [Miralax] 17 gm GT DAILY 08/30/15 Magnesium Hydroxide [Milk Of 35 - 50 ml GT DAILY PRN PRN 12/20/15 Magnesia] Metoclopramide [Reglan Solution] 5 mg GT TID 12/20/15 Lactose-Reduced Food/Fiber [Jevity 237 ml GT 4X/DAY 03/11/16 1 [place] Liquid] Lactulose [Chronulac] 20 gm GT DAILY 06/01/16 Phenobarbital 60 mg GT BID 02/19/17 furosemide 40 mg/5 mL (8 mg/mL) 20 mg PO QDAY #500 ml 09/09/17 oral solution Cetirizine HCl [Allergy Relief] 10 ml GT DAILY 09/16/17 Surgical History: Surgical History (Last Reviewed 09/16/17 @ 17:51 by Torey James DO) H/O eye surgery (Resolved) Z98.890 Surgical History: - - Insertion of a baclofen pump which has been replaced twice since then. PEG tube insertion. Left colostomy Psychiatric History: No pertinent psych hx Lives: With Family Smoking Status: Never smoker Tobacco Use: Non-smoker - *Family History Maternal Family History: Family History (Last Reviewed 09/16/17 @ 17:51 by Torey James DO) Mother Hypertension History Items: No pertinent history, - - None significant Paternal Family History: Family History (Last Reviewed 09/16/17 @ 17:51 by Torey James DO) Mother Hypertension History Items: No pertinent history Review of Systems Cardiovascular: Reports: Edema Respiratory: Reports: Shortness of Breath Comment: Unable to obtain from the patient as he is nonverbal. Reason for to the history of present illness for further details. VTE Information - Inpt Only VTE Present on Admission: No VTE Mechan Device Prophylaxis: None VTE Pharm Prophylaxis ordered?: Yes Patient Problems: Active and Suspected Problems (Last Reviewed 09/07/17 @ 09:34 by Maury Waite MD ) Severe sepsis (Acute) Aspiration pneumonia (Acute) - Physical Exam General: - - Awake. Eyes are open. Nonverbal. HEENT: Atraumatic, Normocephalic, - - Macroglossia. No scleral icterus Oral: Moist Mucosa, No Gingival or Mucosal Lesions/ Ulcerations, - - Edentulous Neck: No Nodes, Thyroid Normal Size and Texture Lungs: Diminished, - - Coarse breath sounds bilaterally Cardiovascular: Regular Rhythm, Normal S1, Normal S2, Tachycardic Abdomen: Bowel Sounds Present, Soft, Non Tender, Non-Distended, - - PEG tube in left upper quadrant that is intact. Colostomy in left lower quadrant that is intact with some perhaps some contact dermatitis from the adhesives. Extremities: No Calf Tenderness, Edema - Trace lower extremity Skin: - - Contact dermatitis around the colostomy. Numerous left forearm 1 cm lesions extending down to his hand. Nonvesicular. Macular in appearance and slightly raised. Musculoskeletal: No Tenderness to Palpation of Joints or Extremities, Muscle Wasting Neurological: - - Extensor posturing in the upper extremities increased muscle tone throughout Vital Signs Temp Pulse Resp BP Pulse Ox 36.4 C L 123 H 16 99/84 H 95 09/16/17 15:11 09/16/17 17:00 09/16/17 17:00 09/16/17 15:11 09/16/17 17:00 Oxygen Flow Rate (L/min) 2 Oxygen Delivery Method Nasal Cannula Weight: 70.307 kg Body Mass Index (BMI) 30.2 Laboratory Tests Past 24 Hrs 09/16/17 09/16/17 09/16/17 16:15 16:15 16:15 WBC 6.3 RBC 4.03 L Hgb 12.0 L Hct 36.7 L MCV 91.1 MCH 29.8 MCHC 32.7 RDW 15.1 H RDW Differential 50.0 H Plt Count 112 L MPV 10.7 Immature Gran % (Auto) 0.000 Neut % (Auto) 57.2 Lymph % (Auto) 28.8 [place] % (Auto) 12.5 H Eos % (Auto) 1.3 Baso % (Auto) 0.2 Absolute Neuts (auto) 3.6 Absolute Lymphs (auto) 1.82 Total Counted Not Reportable Sodium 137 Potassium 4.6 Chloride 102 Carbon Dioxide 29.0 Anion Gap 6 BUN 20 H Creatinine 0.60 L Estim Creat Clear Calc 121.53 Est GFR (MDRD) Af Amer 198 Est GFR (MDRD) Non-Af 164 BUN/Creatinine Ratio 33.6 H Glucose 82 Lactic Acid 2.6 H Calcium 8.8 Chest x-ray reviewed and is poor study due to points poor effort but does show increased pulmonary edema change from May of this year. Assessment/Plan All Active Problems (Last Reviewed 09/07/17 @ 09:34 by Maury Waite MD) Severe sepsis (Acute) Aspiration pneumonia (Acute) H/O eye surgery (Resolved) Aspiration pneumonia (Acute) Sepsis (Acute) Edema (Acute) Tachycardia (Acute) Difficult intravenous access (Acute) Sepsis (Acute) C. difficile colitis (Resolved) 1. Severe sepsis * Secondary to pneumonia * IV fluids * Recheck lactic acid * Patient is on Lasix just solely for edema. That is going to be held for now. * Blood cultures ordered * Will also check urine studies as well. Should be noted that the patient does not have a catheter at baseline uses diapers. 2. Suspected aspiration pneumonia * Continue with Unasyn * Pulmonary toilet with bronchodilators as well as vest therapy * Check sputum culture. Check urinary antigens for Streptococcus and Legionella. 3. Cerebral palsy * Advanced and complicates care * Family inquired about being transferred to [facility] rather than staying here. I informed them that I am certainly comfortable with patient staying here with his pneumonia and cerebral palsy. Though I did leave that up to the family if they would prefer to stay here rather than go to [facility] since I brought that up. They stated that they would prefer he be admitted here. 4. DVT prophylaxis with Lovenox 5. Advanced care planning: Without my prompting the family brought up not wishing to discuss DNR as a felt that when they are asked that at other times that they are almost being coerced into making the patient DNR. They do not wish for the patient have a DNR status at this time was for him to be full CODE STATUS. I did try to diffuse situation that they brought up by saying that generally when it is asked should be just to clarify rather than try to make them make a decision that they are uncomfortable with. Code Visit Inpatient E&M: [id number] Init Hosp L3
--- NOTE | 2017-09-16 19:49 | NURSING ---
Baclofen pump in right lower quadrant, tubing runs just under the skin, ONLY GIVE LOVENOX IN THIGHS, per parent request.
[2017-09-16] MEDS: 0.9% Normal Saline 1,000 ML 150 ML IV (20:04)
--- NOTE | 2017-09-16 20:07 | RAD_ITS ---
STUDY: X-RAY CHEST REASON FOR EXAM: Male, 37 years old. Respiratory distress TECHNIQUE: Single frontal view of the chest. COMPARISON: September 16, 2017 4:23 PM FINDINGS: Right MediPort in the IJ terminates in the right atrial region. Bilateral airspace disease unchanged. There is no demonstrated pleural abnormality. Normal size heart. Normal mediastinum and rachelle. Normal visualized pulmonary arteries. Normal visualized aortic arch and descending thoracic aorta. Normal visualized thoracic spine. Normal visualized ribs, clavicles, and shoulders. There is no demonstrated abnormality of the visualized soft tissue structures of the upper abdomen. RAD/Chest 1 View (Portable) IMPRESSION: Bilateral airspace disease unchanged Electronically Signed: Luis Carlos Smith MD at 21:33 EDT , Service support ,
[2017-09-16 20:17] LABS: Color, Urine Yellow (Yellow); Glucose, Dipstick Normal (Normal); Ketone-Dipstick Negative (Negative); Leukocyte Esterase-Dipstick Negative /ul (Negative); Nitrite-Dipstick Negative (Negative); Occult Blood-Urine 150 /ul (Negative); Protein-Dipstick Negative (Negative); Urine Bilirubin Dipstick Negative (Negative); Urine Clarity Sl. Cloudy (Clear); Urine Urobilinogen Normal (Normal)
[2017-09-16 20:21] LABS: Reflex Lactate? Y
[2017-09-16] MEDS: 0.9% Normal Saline 1,000 ML 75 ML IV (20:49)
[2017-09-16 21:08] LABS: Absolute Lymphocyte Count 1.04 X10^3/ul (0.83-4.51); Absolute Neutrophil Count 4.8 X10^3/uL (2.0-7.7); Basophil# 0.01 X10^3/uL; Basophil% 0.2 % (0-1); Eosinophil# 0.03 X10^3/uL; Eosinophils% 0.5 % (0-5); Hematocrit 34.1 % (40-54); Hemoglobin 11.2 g/dl (13.0-16.5); Lymphocyte # 1.04 X10^3/ul (4.0); Lymphocyte % 15.6 % (19-41); Mean Corp Hgb Conc 32.8 g/gl (32-36); Mean Corpuscular Hgb 29.8 pg (27.0-32.0); Mean Corpuscular Volume 90.7 fL (80-94); Monocyte# 0.75 X10^3/uL; Monocyte% 11.3 % (0-10); Neutrophil # 4.82 X10^3/uL (2.7-7.7); Neutrophil % 72.2 % (47-70); Platelet Count 110 K/mm3 (150-450); RBC Distribution Width CV 15.1 % (11.6-14.6); RBC Distribution Width SD 49.2 fl (35.1-43.9); Red Blood Count 3.76 M/mm3 (4.6-6.2); White Blood Count 6.7 K/mm3 (4.4-11.0)
[2017-09-16 21:09] LABS: POSITIVE COUNT NO; POSITIVE DIFFERENTIAL NO; POSITIVE MORPHOLOGY NO
[2017-09-16 21:35] LABS: Anion Gap 7 (5-15); BUN 17 mg/dL (7-18); BUN/Creat Ratio 31.5 RATIO (10-20); Calcium,Total 8.5 mg/dL (8.5-10.1); Chloride 107 mmol/L (98-107); Creatinine, Serum 0.54 mg/dL (0.70-1.30); EST Glomerular Filtration Rate 183 mL/min (>60); Est Glom Filt Rate - Afr Amer 222 mL/min (>60); Estimated Creatinine Clearance 135.03 ml/min; Glucose 71 mg/dL (74-106); Magnesium 1.7 mg/dL (1.6-2.6); Phosphorus 3.5 mg/dL (2.5-4.9); Potassium 4.7 mmol/L (3.5-5.1); Sodium Level 141 mmol/L (136-145)
[2017-09-16] MEDS: Metoclopramide 10 MG/10 ML UDC 5 MG GT (22:18)
[2017-09-16 22:24] LABS: M R Staph aureus DNA By PCR Negative (Negative); Probe Check PASS; Specimen Processing Control PASS
[2017-09-16] MEDS: LORazepam 1 MG Tablet GT (22:25)
[2017-09-16] MEDS: Jevity 1.5 1,000 ML 40 ML GT (22:34)
[2017-09-16 23:45] LABS: Blood Gas Specimen Type VEN; O2 Delivery Device Nasal Can; SITE OTHER; Time Given 2335; VBG BASE EXCESS 2 mmol/L (-1.0-3.5); VBG Bicarbonate 26 mmol/L (22-26); VBG Oxygen Content 27 mmol/L (23-33); VBG PO2 66 mmHg (25-40); VBG SO2 94 % (50-70); VBG pCO2 38.4 mmHg (41-51); VBG pH 7.44 (7.32-7.42)
[2017-09-16] MEDS: Simethicone 40MG/0.6ML Bottle 40 MG GT (23:50)
[2017-09-16] MEDS: Phenobarbital 20 MG/5 ML UDC 60 MG GT (23:50)
[2017-09-17] VITALS (19 sets, daily range): BP systolic 93–119; BP diastolic 48–97; PULSE 85–119; RESP 15–24; TEMP 36.3–38.1; O2SAT 92–97
--- NOTE | 2017-09-17 00:49 | PCM.RX.CS ---
Consult Pharmacy has been consulted to manage selected antiobiotic: Vancomycin Type of Consult: New start Suspected Infection: Pneumonia Prior Doses of Antibiotics Received/Current Regimen: Medications Vancomycin HCl 1,250 mg/ (Sodium Chloride) 275 mls @ 183.333 mls/hr IV Q12H JOYCE Discontinued Medications Vancomycin HCl 1,250 mg/ (Sodium Chloride) 275 mls @ 183.333 mls/hr IV X1 ONE Stop: 09/16/17 23:29 Last Admin: 09/16/17 22:32 Dose: 183.333 mls/hr Labs: Sodium 141 mmol/L (136-145) 09/16/17 20:55 Potassium 4.7 mmol/L (3.5-5.1) 09/16/17 20:55 Chloride 107 mmol/L (98-107) 09/16/17 20:55 Carbon Dioxide 27.0 mmol/L (21.0-32.0) 09/16/17 20:55 Anion Gap 7 (5-15) 09/16/17 20:55 BUN 17 mg/dL (7-18) 09/16/17 20:55 Creatinine 0.54 mg/dL (0.70-1.30) L 09/16/17 20:55 Est GFR (MDRD) Af Amer 222 mL/min (>60) 09/16/17 20:55 Est GFR (MDRD) Non-Af 183 mL/min (>60) 09/16/17 20:55 BUN/Creatinine Ratio 31.5 RATIO (10-20) H 09/16/17 20:55 Glucose 71 mg/dL (74-106) L 09/16/17 20:55 Microbiology: Microbiology 09/16/17 20:00 Urine Catheter - Catheter Legionella Antigen - Final Weight used for dosin kg Estimated Creatinine Clearance: 135 Goal Trough: 10-15 mcg/mL Pharmacy Plan for Drug Dosing: Pharmacy Service will continue to monitor and adjust dosing as required. Follow-Up Labs: Trough Vancomycin Labs to be done on [date and time ordered]: 09/18/17 @1030
[2017-09-17 04:42] LABS: Anion Gap 6 (5-15); BUN 15 mg/dL (7-18); BUN/Creat Ratio 30.1 RATIO (10-20); Calcium,Total 8.4 mg/dL (8.5-10.1); Chloride 111 mmol/L (98-107); EST Glomerular Filtration Rate 201 mL/min (>60); Est Glom Filt Rate - Afr Amer 244 mL/min (>60); Estimated Creatinine Clearance 145.83 ml/min; Glucose 77 mg/dL (74-106); Potassium 4.2 mmol/L (3.5-5.1); Sodium Level 146 mmol/L (136-145)
[2017-09-17] MEDS: Simethicone 40MG/0.6ML Bottle 40 MG GT ×3 (05:44→22:13)
[2017-09-17] MEDS: Piperacil/Tazobactam 3.375 GM/50 ML ML IV ×3 (05:44→22:10)
[2017-09-17] MEDS: Metoclopramide 10 MG/10 ML UDC 5 MG GT ×3 (05:45→22:15)
--- NOTE | 2017-09-17 08:25 | PCM.CON.CC ---
Problem List (1) Severe sepsis Status: Acute (2) Aspiration pneumonia Status: Acute Qualifiers: Aspiration pneumonia type: unspecified Laterality: bilateral Lung location: lower lobe of lung Qualified Code(s): J69.0 - Pneumonitis due to inhalation of food and vomit (3) Nonrheumatic mitral valve prolapse Status: Chronic (4) Cerebral palsy Status: Chronic Qualifiers: Cerebral palsy type: spastic quadriplegic Qualified Code(s): G80.0 - Spastic quadriplegic cerebral palsy Comment: Quadriplegic Severe mental retardation Chronic constipation PEG tube (5) History of seizure disorder Status: Chronic (6) Redundant colon Status: Chronic (7) Colostomy in place Status: Chronic Reason for Consult Date of Consultation: 09/17/17 Reason for Consultation: Sepsis History of Present Illness: The patient is a 37 year old M, with past medical history listed below and well-known to me from previous admissions, who presented to [facility] on 09/16/2017 secondary to concern for aspiration pneumonia. Patient does have a history of tube feeds at baseline, left upper quadrant baclofen pump, and left lower quadrant colostomy. Patient is nonverbal and unable to provide any history. On presentation to the ER, patient was noted to be tachycardic and tachypneic. Patient does have poor dentition at baseline and was requiring 2 L nasal cannula to achieve appropriate saturations. Patient typically only require supplemental oxygen at night. No retractions were noted, but patient did have 2-3+ edema of the bilateral lower extremities. Laboratory workup showed a white blood cell count of 11.2, lactate of 2.6 and a chest x-ray showing bilateral infiltrates. Patient was placed on Unasyn for aspiration pneumonia and then admitted to the PCU. While in PCU, patient's respirations became more labored and he was transferred to the intensive care unit for possible intervention. Patient was initially on a nonrebreather, but after aggressive mouth care, patient was able to be weaned down to 2 L nasal cannula. Patient has remained tachycardic and febrile throughout his hospitalization. On arrival this morning, patient was resting comfortably. Discussed with patient's mother at the bedside. She did note papular lesions of the left forearm, but otherwise no new bedsores or other complications. Patient has been initiated on tube feeds with 1.5 kcal per cc. Patient typically uses 1 kcal per cc at home. Patient reportedly has been tolerating this. No emesis has been reported from the mother. No sick contacts are reported. Patient did have a Augustin catheter placed on presentation to the intensive care unit and 950 cc were removed. Per mother's recollection, there is never been an issue with urinary retention in the past. Past Medical History Past Medical History (Chronic Problems): Chronic Problems (Last Reviewed 09/16/17 @ 17:51 by Torey James DO) Nonrheumatic mitral valve prolapse (Chronic) C. 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) Medical History: Medical History (Last Reviewed 09/16/17 @ 17:51 by Torey James DO) Nonrheumatic mitral valve prolapse (Chronic) I34.1 Cerebral palsy (Chronic) G80.9 Quadriplegic Severe mental retardation Chronic constipation PEG tube Allergies cisapride monohydrate [From Propulsid] Allergy (Verified 05/30/17 12:34) Rash codeine Adverse Reaction (Verified 05/30/17 12:34) hallucinations metronidazole [From Flagyl] Adverse Reaction (Verified 05/30/17 12:34) Rash morphine Adverse Reaction (Verified 05/30/17 12:34) Hallucinations dust Allergy (Uncoded 05/30/17 12:34) Other Home Medications: Ambulatory Orders Medication Instructions Recorded Simethicone 40MG/0.6ML [Mylicon] 40 mg GT TID 11/09/13 Baclofen 734.1 mcg INTRATH CONT 01/12/14 Lactobacillus Combination No.4 1 cap GT DAILY 01/12/14 [Probiotic] Pantoprazole Sodium [Protonix] 20 ml GT BID 08/09/14 Senna/Docusate Sodium 20 ml GT PRN PRN 08/03/15 Ondansetron HCl [Zofran Solution] 5 ml GT TID PRN PRN 08/30/15 Polyethylene Glycol 3350 [Miralax] 17 gm GT DAILY 08/30/15 Magnesium Hydroxide [Milk Of 35 - 50 ml GT DAILY PRN PRN 12/20/15 Magnesia] Metoclopramide [Reglan Solution] 5 mg GT TID 12/20/15 Lactose-Reduced Food/Fiber [Jevity 237 ml GT 4X/DAY 03/11/16 1 [place] Liquid] Lactulose [Chronulac] 20 gm GT DAILY 06/01/16 Phenobarbital 60 mg GT BID 02/19/17 furosemide 40 mg/5 mL (8 mg/mL) 20 mg PO QDAY #500 ml 09/09/17 oral solution Cetirizine HCl [Allergy Relief] 10 ml GT DAILY 09/16/17 Surgical History: Surgical History (Last Reviewed 09/16/17 @ 17:51 by Torey James DO) H/O eye surgery (Resolved) Z98.890 Surgical History: - - Insertion of a baclofen pump which has been replaced twice since then. PEG tube insertion. Left colostomy Psychiatric History: No pertinent psych hx Lives: With Family Smoking Status: Never smoker Tobacco Use: Non-smoker - *Family History Maternal Family History: Family History (Last Reviewed 09/16/17 @ 17:51 by Torey James DO) Mother Hypertension History Items: No pertinent history, - - None significant Paternal Family History: Family History (Last Reviewed 09/16/17 @ 17:51 by Torey James DO) Mother Hypertension History Items: No pertinent history Review of Systems Unable to obtain accurate/complete ROS d/t: Cerebral palsy, ROS per mother Comment: Otherwise negative ?10 systems unless stated in HPI. Patient Problems: Active and Suspected Problems (Last Reviewed 09/16/17 @ 17:51 by Torey James DO) Severe sepsis (Acute) Aspiration pneumonia (Acute) Objective: Chest x-ray was personally reviewed. Poor inhalation bilaterally, but does appear to have bilateral alveolar infiltrates. - Physical Exam General: Alert, No apparent distress, - - Not following commands, but this is his baseline. CP appearance HEENT: Atraumatic, PERRLA, EOMI, Normocephalic, - - No scleral icterus or injection noted. Oral: Moist Mucosa, Ulcerations Present - Small ulceration and erythema noted on the distal portion of the tongue., - - Gingival hyperplasia noted. Poor dentition. Neck: Supple, No JVD, No Nodes, Trachea Midline Lungs: No wheeze, No rales, Diminished, Rhonchi, - - Symmetric expansion. Cardiovascular: Normal S1, Normal S2, No murmurs, No rub noted, No Gallop, Tachycardic Abdomen: Bowel Sounds Present, Soft, Non Tender, Non-Distended, Obese, - - Colostomy and [place] button are clean, dry and intact. Extremities: No clubbing, No cyanosis, Edema - Or rubor. 2+ lower extremity edema without erythema or warmth Skin: No breakdown, - - Papular lesions noted on left forearm that appear to be insect bites. Musculoskeletal: No Tenderness to Palpation of Joints or Extremities, - - Contractures noted. Lymphatic: No Cervical, Supraclavicular, or Inguinal Adenopathy Neurological: - - Spastic contractions noted of upper and lower extremities. Torticollis to the right. Psych/Mental Status: Anxious, Flat Affect, Restless Vital Signs Temp Pulse Resp BP Pulse Ox 37.6 C H 109 H 18 114/69 93 09/17/17 08:00 09/17/17 08:00 09/17/17 08:00 09/17/17 08:00 09/17/17 08:00 Oxygen Flow Rate (L/min) 2 Oxygen Delivery Method Nasal Cannula Weight: 81.4 kg Body Mass Index (BMI) 34.4 Intake and Output for Last 24 Hours 09/15/17 09/16/17 09/17/17 23:59 23:59 23:59 Intake Total 1395 / 1395 668.8 / 668.8 Output Total 400 / 400 350 / 350 Balance 995 / 995 318.8 / 318.8 Microbiology Past 72 Hours 09/16/17 20:00 Legionella Antigen - Final Urine Catheter - Catheter Laboratory Tests Past 24 Hrs 09/16/17 09/16/17 09/16/17 20:00 20:40 20:55 WBC 6.7 RBC 3.76 L Hgb 11.2 L Hct 34.1 L MCV 90.7 MCH 29.8 MCHC 32.8 RDW 15.1 H RDW Differential 49.2 H Plt Count 110 L MPV 11.0 Immature Gran % (Auto) 0.200 Neut % (Auto) 72.2 H Lymph % (Auto) 15.6 L [place] % (Auto) 11.3 H Eos % (Auto) 0.5 Baso % (Auto) 0.2 Absolute Neuts (auto) 4.8 Absolute Lymphs (auto) 1.04 Total Counted Not Reportable Specimen Type Sample Site VBG pH VBG pO2 VBG O2 Sat (Calc) VBG O2 Content VBG Base Excess POC Mix VBG pCO2 Pt Tmp O2 Delivery Device Liter Flow Blood Gas Notified Whom Blood Gas Notified Time Sodium Potassium Chloride Carbon Dioxide Anion Gap BUN Creatinine Estim Creat Clear Calc Est GFR (MDRD) Af Amer Est GFR (MDRD) Non-Af BUN/Creatinine Ratio Glucose Lactic Acid Calcium Phosphorus Magnesium Urine Color Yellow Urine Clarity Sl. Cloudy Urine pH 8.0 Ur Specific [place] 1.010 Urine Protein Negative Urine Glucose (UA) Normal Urine Ketones Negative Urine Occult Blood 150 H Urine Nitrite Negative Urine Bilirubin Negative Urine Urobilinogen Normal Ur Leukocyte Esterase Negative MRSA (PCR) Negative 09/16/17 09/16/17 09/16/17 20:55 20:55 23:41 WBC RBC Hgb Hct MCV MCH MCHC RDW RDW Differential Plt Count MPV Immature Gran % (Auto) Neut % (Auto) Lymph % (Auto) [place] % (Auto) Eos % (Auto) Baso % (Auto) Absolute Neuts (auto) Absolute Lymphs (auto) Total Counted Specimen Type BRANDYN Sample Site OTHER VBG pH 7.44 H VBG pO2 66 H VBG O2 Sat (Calc) 94 H VBG O2 Content 27 VBG Base Excess 2 POC Mix VBG pCO2 Pt Tmp 38.4 L O2 Delivery Device Nasal Can Liter Flow 5.0 Blood Gas Notified Whom [facility] Blood Gas Notified Time 2335 Sodium 141 Potassium 4.7 Chloride 107 Carbon Dioxide 27.0 Anion Gap 7 BUN 17 Creatinine 0.54 L Estim Creat Clear Calc 135.03 Est GFR (MDRD) Af Amer 222 Est GFR (MDRD) Non-Af 183 BUN/Creatinine Ratio 31.5 H Glucose 71 L Lactic Acid 1.0 Calcium 8.5 Phosphorus 3.5 Magnesium 1.7 Urine Color Urine Clarity Urine pH Ur Specific [place] Urine Protein Urine Glucose (UA) Urine Ketones Urine Occult Blood Urine Nitrite Urine Bilirubin Urine Urobilinogen Ur Leukocyte Esterase MRSA (PCR) 09/17/17 04:15 WBC RBC Hgb Hct MCV MCH MCHC RDW RDW Differential Plt Count MPV Immature Gran % (Auto) Neut % (Auto) Lymph % (Auto) [place] % (Auto) Eos % (Auto) Baso % (Auto) Absolute Neuts (auto) Absolute Lymphs (auto) Total Counted Specimen Type Sample Site VBG pH VBG pO2 VBG O2 Sat (Calc) VBG O2 Content VBG Base Excess POC Mix VBG pCO2 Pt Tmp O2 Delivery Device Liter Flow Blood Gas Notified Whom Blood Gas Notified Time Sodium 146 H Potassium 4.2 Chloride 111 H Carbon Dioxide 29.0 Anion Gap 6 BUN 15 Creatinine 0.50 L Estim Creat Clear Calc 145.83 Est GFR (MDRD) Af Amer 244 Est GFR (MDRD) Non-Af 201 BUN/Creatinine Ratio 30.1 H Glucose 77 Lactic Acid Calcium 8.4 L Phosphorus Magnesium Urine Color Urine Clarity Urine pH Ur Specific [place] Urine Protein Urine Glucose (UA) Urine Ketones Urine Occult Blood Urine Nitrite Urine Bilirubin Urine Urobilinogen Ur Leukocyte Esterase MRSA (PCR) Clinical Impression(s) from Imaging Studies Chest X-Ray 09/16/17 16:15 IMPRESSION: Bilateral airspace disease. recommend follow-up to resolution. Electronically Signed: Luis Carlos Smith MD at 16:41 EDT , Service support , Chest X-Ray 09/16/17 20:07 IMPRESSION: Bilateral airspace disease unchanged Electronically Signed: Luis Carlos Smith MD at 21:33 EDT , Service support , Assessment/Plan Active and Suspected Problems (Last Reviewed 09/16/17 @ 17:51 by Torey James DO) Severe sepsis (Acute) Aspiration pneumonia (Acute) RECOMMENDATIONS: 1. Continue empiric antibiotics 2. Aggressive mouth care, follow saturations closely 3. Okay to continue tube feeds 4. Discontinue IV fluids 5. Okay to transfer to PCU for my perspective IMPRESSIONS: 1. Severe sepsis secondary to probable aspiration pneumonia Patient with increased oral secretions per the mother and infiltrates noted bilaterally on chest x-ray. Patient does have a PEG, but no obvious emesis has been reported by the mother. Patient is on appropriate antibiotics at this time. Patient's oxygenation appears to have responded well to aggressive oral care. Wean oxygen as tolerated. Continue nocturnal oxygen 2. Chronic respiratory insufficiency secondary to recurrent aspiration pneumonia No obvious aspiration event at this time. Chest x-ray was personally reviewed and shows a slight haziness over the both lung pis[place]. Echocardiogram and CT scan of the chest in the past did show a dilated IVC did show enlarged pulmonary arteries. 3. History of C. difficile colitis status post colostomy/history of upper GI bleed Patient is currently being fed with increased awesome tube feeds. This may lead to some diarrhea. Likely okay to hold patient's baseline bowel regimen if this develops. Obtain C. difficile if necessary. 4. Sinus tachycardia Echocardiogram was relatively unremarkable in the past. Likely response to severe sepsis. Continue supportive care and monitor with telemetry. 5. Cerebral palsy/history of seizure disorder/multiple previous admissions Complicates care, management, recovery and prognosis. Code Visit Inpatient E&M: [id number] Init Hosp L3
--- NOTE | 2017-09-17 08:35 | CON.PCM_ITS ---
Problem List (1) Severe sepsis Status: Acute (2) Aspiration pneumonia Status: Acute Qualifiers: Aspiration pneumonia type: unspecified Laterality: bilateral Lung location: lower lobe of lung Qualified Code(s): J69.0 - Pneumonitis due to inhalation of food and vomit (3) Nonrheumatic mitral valve prolapse Status: Chronic (4) Cerebral palsy Status: Chronic Qualifiers: Cerebral palsy type: spastic quadriplegic Qualified Code(s): G80.0 - Spastic quadriplegic cerebral palsy Comment: Quadriplegic Severe mental retardation Chronic constipation PEG tube (5) History of seizure disorder Status: Chronic (6) Redundant colon Status: Chronic (7) Colostomy in place Status: Chronic Reason for Consult Date of Consultation: 09/17/17 Reason for Consultation: Sepsis History of Present Illness: The patient is a 37 year old M, with past medical history listed below and well- known to me from previous admissions, who presented to [facility] on 09/16/2017 secondary to concern for aspiration pneumonia. Patient does have a history of tube feeds at baseline, left upper quadrant baclofen pump , and left lower quadrant colostomy. Patient is nonverbal and unable to provide any history. On presentation to the ER, patient was noted to be tachycardic and tachypneic. Patient does have poor dentition at baseline and was requiring 2 L nasal cannula to achieve appropriate saturations. Patient typically only require supplemental oxygen at night. No retractions were noted , but patient did have 2-3+ edema of the bilateral lower extremities. Laboratory workup showed a white blood cell count of 11.2, lactate of 2.6 and a chest x-ray showing bilateral infiltrates. Patient was placed on Unasyn for aspiration pneumonia and then admitted to the PCU. While in PCU, patient's respirations became more labored and he was transferred to the intensive care unit for possible intervention. Patient was initially on a nonrebreather, but after aggressive mouth care, patient was able to be weaned down to 2 L nasal cannula. Patient has remained tachycardic and febrile throughout his hospitalization. On arrival this morning, patient was resting comfortably. Discussed with patient's mother at the bedside. She did note papular lesions of the left forearm, but otherwise no new bedsores or other complications. Patient has been initiated on tube feeds with 1.5 kcal per cc. Patient typically uses 1 kcal per cc at home. Patient reportedly has been tolerating this. No emesis has been reported from the mother. No sick contacts are reported. Patient did have a Augustin catheter placed on presentation to the intensive care unit and 950 cc were removed. Per mother's recollection, there is never been an issue with urinary retention in the past. Past Medical History Past Medical History (Chronic Problems): Chronic Problems (Last Reviewed 09/16/17 @ 17:51 by Torey James DO) Nonrheumatic mitral valve prolapse (Chronic) C. 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) Medical History: Medical History (Last Reviewed 09/16/17 @ 17:51 by Torey James DO) Nonrheumatic mitral valve prolapse (Chronic) I34.1 Cerebral palsy (Chronic) G80.9 Quadriplegic Severe mental retardation Chronic constipation PEG tube Allergies cisapride monohydrate [From Propulsid] Allergy (Verified 05/30/17 12:34) Rash codeine Adverse Reaction (Verified 05/30/17 12:34) hallucinations metronidazole [From Flagyl] Adverse Reaction (Verified 05/30/17 12:34) Rash morphine Adverse Reaction (Verified 05/30/17 12:34) Hallucinations dust Allergy (Uncoded 05/30/17 12:34) Other Home Medications: Ambulatory Orders Medication Instructions Recorded Simethicone 40MG/0.6ML [Mylicon] 40 mg GT TID 11/09/13 Baclofen 734.1 mcg INTRATH CONT 01/12/14 Lactobacillus Combination No.4 1 cap GT DAILY 01/12/14 [Probiotic] Pantoprazole Sodium [Protonix] 20 ml GT BID 08/09/14 Senna/Docusate Sodium 20 ml GT PRN PRN 08/03/15 Ondansetron HCl [Zofran Solution] 5 ml GT TID PRN PRN 08/30/15 Polyethylene Glycol 3350 [Miralax] 17 gm GT DAILY 08/30/15 Magnesium Hydroxide [Milk Of 35 - 50 ml GT DAILY PRN PRN 12/20/15 Magnesia] Metoclopramide [Reglan Solution] 5 mg GT TID 12/20/15 Lactose-Reduced Food/Fiber [Jevity 237 ml GT 4X/DAY 03/11/16 1 [place] Liquid] Lactulose [Chronulac] 20 gm GT DAILY 06/01/16 Phenobarbital 60 mg GT BID 02/19/17 furosemide 40 mg/5 mL (8 mg/mL) 20 mg PO QDAY #500 ml 09/09/17 oral solution Cetirizine HCl [Allergy Relief] 10 ml GT DAILY 09/16/17 Surgical History: Surgical History (Last Reviewed 09/16/17 @ 17:51 by Torey James DO) H/O eye surgery (Resolved) Z98.890 Surgical History: - - Insertion of a baclofen pump which has been replaced twice since then. PEG tube insertion. Left colostomy Psychiatric History: No pertinent psych hx Lives: With Family Smoking Status: Never smoker Tobacco Use: Non-smoker - *Family History Maternal Family History: Family History (Last Reviewed 09/16/17 @ 17:51 by Torey James DO) Mother Hypertension History Items: No pertinent history, - - None significant Paternal Family History: Family History (Last Reviewed 09/16/17 @ 17:51 by Torey James DO) Mother Hypertension History Items: No pertinent history Review of Systems Unable to obtain accurate/complete ROS d/t: Cerebral palsy, ROS per mother Comment: Otherwise negative ?10 systems unless stated in HPI. Patient Problems: Active and Suspected Problems (Last Reviewed 09/16/17 @ 17:51 by Torey James DO) Severe sepsis (Acute) Aspiration pneumonia (Acute) Objective: Chest x-ray was personally reviewed. Poor inhalation bilaterally, but does appear to have bilateral alveolar infiltrates. - Physical Exam General: Alert, No apparent distress, - - Not following commands, but this is his baseline. CP appearance HEENT: Atraumatic, PERRLA, EOMI, Normocephalic, - - No scleral icterus or injection noted. Oral: Moist Mucosa, Ulcerations Present - Small ulceration and erythema noted on the distal portion of the tongue., - - Gingival hyperplasia noted. Poor dentition. Neck: Supple, No JVD, No Nodes, Trachea Midline Lungs: No wheeze, No rales, Diminished, Rhonchi, - - Symmetric expansion. Cardiovascular: Normal S1, Normal S2, No murmurs, No rub noted, No Gallop, Tachycardic Abdomen: Bowel Sounds Present, Soft, Non Tender, Non-Distended, Obese, - - Colostomy and Fracisco button are clean, dry and intact. Extremities: No clubbing, No cyanosis, Edema - Or rubor. 2+ lower extremity edema without erythema or warmth Skin: No breakdown, - - Papular lesions noted on left forearm that appear to be insect bites. Musculoskeletal: No Tenderness to Palpation of Joints or Extremities, - - Contractures noted. Lymphatic: No Cervical, Supraclavicular, or Inguinal Adenopathy Neurological: - - Spastic contractions noted of upper and lower extremities. Torticollis to the right. Psych/Mental Status: Anxious, Flat Affect, Restless Vital Signs Temp Pulse Resp BP Pulse Ox 37.6 C H 109 H 18 114/69 93 09/17/17 08:00 09/17/17 08:00 09/17/17 08:00 09/17/17 08:00 09/17/17 08:00 Oxygen Flow Rate (L/min) 2 Oxygen Delivery Method Nasal Cannula Weight: 81.4 kg Body Mass Index (BMI) 34.4 Intake and Output for Last 24 Hours 09/15/17 09/16/17 09/17/17 23:59 23:59 23:59 Intake Total 1395 / 1395 668.8 / 668.8 Output Total 400 / 400 350 / 350 Balance 995 / 995 318.8 / 318.8 Microbiology Past 72 Hours 09/16/17 20:00 Legionella Antigen - Final Urine Catheter - Catheter Laboratory Tests Past 24 Hrs 09/16/17 09/16/17 09/16/17 20:00 20:40 20:55 WBC 6.7 RBC 3.76 L Hgb 11.2 L Hct 34.1 L MCV 90.7 MCH 29.8 MCHC 32.8 RDW 15.1 H RDW Differential 49.2 H Plt Count 110 L MPV 11.0 Immature Gran % (Auto) 0.200 Neut % (Auto) 72.2 H Lymph % (Auto) 15.6 L [place] % (Auto) 11.3 H Eos % (Auto) 0.5 Baso % (Auto) 0.2 Absolute Neuts (auto) 4.8 Absolute Lymphs (auto) 1.04 Total Counted Not Reportable Specimen Type Sample Site VBG pH VBG pO2 VBG O2 Sat (Calc) VBG O2 Content VBG Base Excess POC Mix VBG pCO2 Pt Tmp O2 Delivery Device Liter Flow Blood Gas Notified Whom Blood Gas Notified Time Sodium Potassium Chloride Carbon Dioxide Anion Gap BUN Creatinine Estim Creat Clear Calc Est GFR (MDRD) Af Amer Est GFR (MDRD) Non-Af BUN/Creatinine Ratio Glucose Lactic Acid Calcium Phosphorus Magnesium Urine Color Yellow Urine Clarity Sl. Cloudy Urine pH 8.0 Ur Specific [place] 1.010 Urine Protein Negative Urine Glucose (UA) Normal Urine Ketones Negative Urine Occult Blood 150 H Urine Nitrite Negative Urine Bilirubin Negative Urine Urobilinogen Normal Ur Leukocyte Esterase Negative MRSA (PCR) Negative 09/16/17 09/16/17 09/16/17 20:55 20:55 23:41 WBC RBC Hgb Hct MCV MCH MCHC RDW RDW Differential Plt Count MPV Immature Gran % (Auto) Neut % (Auto) Lymph % (Auto) [place] % (Auto) Eos % (Auto) Baso % (Auto) Absolute Neuts (auto) Absolute Lymphs (auto) Total Counted Specimen Type BRANDYN Sample Site OTHER VBG pH 7.44 H VBG pO2 66 H VBG O2 Sat (Calc) 94 H VBG O2 Content 27 VBG Base Excess 2 POC Mix VBG pCO2 Pt Tmp 38.4 L O2 Delivery Device Nasal Can Liter Flow 5.0 Blood Gas Notified Whom [facility] Blood Gas Notified Time 2335 Sodium 141 Potassium 4.7 Chloride 107 Carbon Dioxide 27.0 Anion Gap 7 BUN 17 Creatinine 0.54 L Estim Creat Clear Calc 135.03 Est GFR (MDRD) Af Amer 222 Est GFR (MDRD) Non-Af 183 BUN/Creatinine Ratio 31.5 H Glucose 71 L Lactic Acid 1.0 Calcium 8.5 Phosphorus 3.5 Magnesium 1.7 Urine Color Urine Clarity Urine pH Ur Specific [place] Urine Protein Urine Glucose (UA) Urine Ketones Urine Occult Blood Urine Nitrite Urine Bilirubin Urine Urobilinogen Ur Leukocyte Esterase MRSA (PCR) 09/17/17 04:15 WBC RBC Hgb Hct MCV MCH MCHC RDW RDW Differential Plt Count MPV Immature Gran % (Auto) Neut % (Auto) Lymph % (Auto) [place] % (Auto) Eos % (Auto) Baso % (Auto) Absolute Neuts (auto) Absolute Lymphs (auto) Total Counted Specimen Type Sample Site VBG pH VBG pO2 VBG O2 Sat (Calc) VBG O2 Content VBG Base Excess POC Mix VBG pCO2 Pt Tmp O2 Delivery Device Liter Flow Blood Gas Notified Whom Blood Gas Notified Time Sodium 146 H Potassium 4.2 Chloride 111 H Carbon Dioxide 29.0 Anion Gap 6 BUN 15 Creatinine 0.50 L Estim Creat Clear Calc 145.83 Est GFR (MDRD) Af Amer 244 Est GFR (MDRD) Non-Af 201 BUN/Creatinine Ratio 30.1 H Glucose 77 Lactic Acid Calcium 8.4 L Phosphorus Magnesium Urine Color Urine Clarity Urine pH Ur Specific [place] Urine Protein Urine Glucose (UA) Urine Ketones Urine Occult Blood Urine Nitrite Urine Bilirubin Urine Urobilinogen Ur Leukocyte Esterase MRSA (PCR) Clinical Impression(s) from Imaging Studies Chest X-Ray 09/16/17 16:15 IMPRESSION: Bilateral airspace disease. recommend follow-up to resolution. Electronically Signed: Luis Carlos Smith MD at 16:41 EDT , Service support , Chest X-Ray 09/16/17 20:07 IMPRESSION: Bilateral airspace disease unchanged Electronically Signed: Luis Carlos Smith MD at 21:33 EDT , Service support , Assessment/Plan Active and Suspected Problems (Last Reviewed 09/16/17 @ 17:51 by Torey James DO) Severe sepsis (Acute) Aspiration pneumonia (Acute) RECOMMENDATIONS: 1. Continue empiric antibiotics 2. Aggressive mouth care, follow saturations closely 3. Okay to continue tube feeds 4. Discontinue IV fluids 5. Okay to transfer to PCU for my perspective IMPRESSIONS: 1. Severe sepsis secondary to probable aspiration pneumonia Patient with increased oral secretions per the mother and infiltrates noted bilaterally on chest x-ray. Patient does have a PEG, but no obvious emesis has been reported by the mother. Patient is on appropriate antibiotics at this time. Patient's oxygenation appears to have responded well to aggressive oral care. Wean oxygen as tolerated. Continue nocturnal oxygen 2. Chronic respiratory insufficiency secondary to recurrent aspiration pneumonia No obvious aspiration event at this time. Chest x-ray was personally reviewed and shows a slight haziness over the both lung pisano. Echocardiogram and CT scan of the chest in the past did show a dilated IVC did show enlarged pulmonary arteries. 3. History of C. difficile colitis status post colostomy/history of upper GI bleed Patient is currently being fed with increased awesome tube feeds. This may lead to some diarrhea. Likely okay to hold patient's baseline bowel regimen if this develops. Obtain C. difficile if necessary. 4. Sinus tachycardia Echocardiogram was relatively unremarkable in the past. Likely response to severe sepsis. Continue supportive care and monitor with telemetry. 5. Cerebral palsy/history of seizure disorder/multiple previous admissions Complicates care, management, recovery and prognosis. Code Visit Inpatient E&M: 81436 Init Hosp L3
--- NOTE | 2017-09-17 08:58 | PN_ITS ---
Patient Problems: Active and Suspected Problems (Last Reviewed 09/16/17 @ 17:51 by Torey James DO) Severe sepsis (Acute) Aspiration pneumonia (Acute) Subjective: Patient was seen and examined. Admitted last night with severe sepsis secondary to CAP. He was on the telemetry floor, found to be tachypneic and transferred to ICU for closer monitoring. Running low grade temps. Vitals/I&O's: Vital Signs Temp Pulse Resp BP Pulse Ox 99.7 F H 109 H 18 114/69 95 09/17/17 08:00 09/17/17 08:00 09/17/17 08:00 09/17/17 08:00 09/17/17 08:32 Oxygen Flow Rate (L/min) 2 Oxygen Delivery Method Nasal Cannula Weight: 81.4 kg Body Mass Index (BMI) 34.4 Intake and Output for Last 24 Hours 09/15/17 09/16/17 09/17/17 23:59 23:59 23:59 Intake Total 1395 / 1395 668.8 / 668.8 Output Total 400 / 400 350 / 350 Balance 995 / 995 318.8 / 318.8 General: Alert, Cooperative, - - aphasic, appears anxious HEENT: Atraumatic, PERRLA, EOMI, Normocephalic, - - Healing scar of tip of scar from biting, involuntary opening of the mouth and oral breathing. Oral: Dry Mucosa - from mouth breathing or opening mouth Neck: Supple, No JVD, Negative Carotid Bruits Lungs: Clear to auscultation - anteriorly, Normal air movement, Diminished - at the lung bases Cardiovascular: Regular rate, Regular Rhythm, Normal S1, Normal S2, No murmurs Abdomen: Bowel Sounds Present, Soft, Non Tender, Non-Distended, No Hepato- splenomegaly, Obese, - - Colostomy bag, baclofen pump to Left upper quadrant Extremities: Edema - Bilateral, pitting, nontender, up to the thigh. Skin: No rashes Musculoskeletal: No Tenderness to Palpation of Joints or Extremities, - - Contractures of the joints especially wrists and feet Neurological: - - Alert, aphasic, drooling, history of cerebral palsy Psych/Mental Status: Normal Affect, Appropriate Microbiology Past 72 Hours 09/16/17 20:00 Urine Catheter - Catheter Legionella Antigen - Final Laboratory Results 09/16/17 20:00: Urine Color Yellow, Urine Clarity Sl. Cloudy, Urine pH 8.0, Ur Specific [place] 1.010, Urine Protein Negative, Urine Glucose (UA) Normal, Urine Ketones Negative, Urine Occult Blood 150 H, Urine Nitrite Negative, Urine Bilirubin Negative, Urine Urobilinogen Normal, Ur Leukocyte Esterase Negative 09/16/17 20:40: MRSA (PCR) Negative 09/16/17 20:55: WBC 6.7, RBC 3.76 L, Hgb 11.2 L, Hct 34.1 L, MCV 90.7, MCH 29.8 , MCHC 32.8, RDW 15.1 H, RDW Differential 49.2 H, Plt Count 110 L, MPV 11.0, Immature Gran % (Auto) 0.200, Neut % (Auto) 72.2 H, Lymph % (Auto) 15.6 L, [place] % (Auto) 11.3 H, Eos % (Auto) 0.5, Baso % (Auto) 0.2, Absolute Neuts (auto) 4.8 , Absolute Lymphs (auto) 1.04, Total Counted Not Reportable 09/16/17 20:55: Sodium 141, Potassium 4.7, Chloride 107, Carbon Dioxide 27.0, Anion Gap 7, BUN 17, Creatinine 0.54 L, Estim Creat Clear Calc 135.03, Est GFR ( MDRD) Af Amer 222, Est GFR (MDRD) Non-Af 183, BUN/Creatinine Ratio 31.5 H, Glucose 71 L, Calcium 8.5, Phosphorus 3.5, Magnesium 1.7 09/16/17 20:55: Lactic Acid 1.0 09/16/17 23:41: Specimen Type BRANDYN, Sample Site OTHER, VBG pH 7.44 H, VBG pO2 66 H, VBG O2 Sat (Calc) 94 H, VBG O2 Content 27, VBG Base Excess 2, POC Mix VBG pCO2 Pt Tmp 38.4 L, O2 Delivery Device Nasal Can, Liter Flow 5.0, Blood Gas Notified Whom BELLA VARGAS, Blood Gas Notified Time 6453 09/17/17 04:15: Sodium 146 H, Potassium 4.2, Chloride 111 H, Carbon Dioxide 29.0 , Anion Gap 6, BUN 15, Creatinine 0.50 L, Estim Creat Clear Calc 145.83, Est GFR (MDRD) Af Amer 244, Est GFR (MDRD) Non-Af 201, BUN/Creatinine Ratio 30.1 H, Glucose 77, Calcium 8.4 L Current Medications Albuterol Sulfate (Ventolin Aerosols) 2.5 mg INHALATION Q2H PRN PRN PRN Reason: SHORTNESS OF BREATH Chlorhexidine Gluconate () 1 each TOPICAL DAILY [facility] Enoxaparin Sodium (Lovenox) 40 mg SC DAILY@1000 JOYCE Heparin Sodium (Beef Lung) (Heparin 500 Unit/5 Ml (100/Ml)) 500 unit IV UD PRN PRN Reason: HEPARIN FLUSH Piperacillin Sod/Tazobactam Sod (Zosyn) 3.375 gm in 50 mls @ 12.5 mls/hr IV Q8 [facility] Last Admin: 09/17/17 05:44 Dose: 12.5 mls/hr Vancomycin IV Pharmacy to Dose (1 ea/ Sodium Chloride) 500 mls @ 250 mls/hr IV X1 PRN; Protocol PRN Reason: Rx to Dose Pantoprazole Sodium 40 mg/ (Sodium Chloride) 110 mls @ 330 mls/hr IV Q24 [facility] Last Admin: 09/16/17 22:16 Dose: 330 mls/hr Enteral Nutritional Formula (Jevity 1.5) 1,000 mls @ 40 mls/hr GT .Q25H [facility] Last Admin: 09/16/17 22:34 Dose: 40 mls/hr Vancomycin HCl 1,250 mg/ (Sodium Chloride) 275 mls @ 183.333 mls/hr IV Q12H [facility] Lactobacillus Acidophilus (Acidophilus) 1 tablet GT DAILY [facility] Lactulose (Chronulac, Cephulac) 20 gm GT DAILY [facility] Loratadine (Claritin) 10 mg GT DAILY [facility] Lorazepam (Ativan) 1 mg GT Q6H PRN PRN PRN Reason: ANXIETY Last Admin: 09/16/17 22:25 Dose: 1 mg Magnesium Hydroxide (Milk Of Magnesia) 35 - 50 ml GT DAILY PRN PRN PRN Reason: Constipation Metoclopramide HCl (Reglan) 5 mg GT TID [facility] Last Admin: 09/17/17 05:45 Dose: 5 mg Non-Formulary Medication (Baclofen) 734.1 mcg INTRATH UD [facility] Last Admin: 09/16/17 20:59 Dose: Not Given Ondansetron HCl (Zofran) 4 mg IV Q8H PRN PRN PRN Reason: NAUSEA Ondansetron HCl (Zofran Odt) 4 mg GT TID PRN PRN PRN Reason: NAUSEA Phenobarbital (Phenobarbital) 60 mg GT BID [facility] Last Admin: 09/16/17 23:50 Dose: 60 mg Simethicone (Mylicon) 40 mg GT TID [facility] Last Admin: 09/17/17 05:44 Dose: 40 mg Sodium Chloride () 10 ml IV UD PRN PRN Reason: VAD FLUSH Medical Necessity - Tobacco Use Smoking Status: Never smoker Tobacco Use: Non-smoker Assessment/Plan All Active Problems (Last Reviewed 09/16/17 @ 17:51 by Torey James DO) Severe sepsis (Acute) Aspiration pneumonia (Acute) H/O eye surgery (Resolved) Aspiration pneumonia (Acute) Sepsis (Acute) Edema (Acute) Tachycardia (Acute) Difficult intravenous access (Acute) Sepsis (Acute) C. difficile colitis (Resolved) -year-old male with past medical history of cerebral palsy, dysphagia, status post PEG tube, status post colostomy admitted with elevated heart rate, respiratory rate and low pulse ox. 1. Severe sepsis secondary to bilateral community acquired pneumonia/suspected aspiration pneumonia POA, improving on IV vancomycin and Zosyn, in ICU We will continue on same antibiotics for now; just had recent changes to antibiotics We will discontinue vancomycin tomorrow and continue only on Zosyn, if patient appears improved will de-escalate to Unasyn 2. Hypernatremia secondary to dehydration, on tube feeds with flushes, will increase flushes to 150mls q4hrly, repeat BMP 3. Dysphagia s/p PEG tube, on tube feeds, fisher reef net consulted 4. Cerebral palsy, complicating care 5. DVT PPx - Lovenox SC Code Visit Inpatient E&M: [id number] Init Hosp L3
[2017-09-17] MEDS: Albuterol 2.5 MG/3 ML VIAL.NEB. INHALATION ×2 (09:23→19:37)
[2017-09-17] MEDS: Enoxaparin 40 MG/0.4 ML Syringe SC (09:40)
[2017-09-17] MEDS: Loratadine 10 MG Tablet GT (09:40)
[2017-09-17] MEDS: Lactulose 20 GM/30 ML UDC GT (09:40)
[2017-09-17] MEDS: Phenobarbital 20 MG/5 ML UDC 60 MG GT ×2 (09:41→22:35)
[2017-09-17] MEDS: CHLORHEXIDINE GLUC 2% CLOTH 1 EACH TOWELETTE TOPICAL (09:41)
--- NOTE | 2017-09-17 10:45 | CASEMGMT ---
See assessment for details. W spoke w/pt's mother at the bedside. Pt has nursing services through [facility] ([phone], fax [phone], pt's RN is Cristine Lopez--[phone]), has aide services and Ashlee Oneil organizes the aides([phone]), and pt's case therapist is Trinity Conn ([phone], [phone]). As per pt's mother pt has been managing well at home. She would like all of the above agencies and individuals contacted as she is not certain if they are all aware pt is here. SW explained will call. LAYA called RN Cristine Lopez w/[facility], she did know pt was here, SW faxed the H&P to [facility]. LAYA also called Ashlee, message left. LAYA also called Trinity Conn and left a message. LAYA placed a green sheet with an order to resume home care on the chart should pt ready for discharge on the weekend. CARMINE Jenkins, LINUX ENGINEER
--- NOTE | 2017-09-17 13:38 | CHAPLAIN ---
Type of Pastoral Visit _x__ Initial Visit ___ Follow-up Visit ___ On-call Visit ___ General Patient Visit ___ Spiritual Assessment ___ Family Conference ___ Bereavement ___ Rapid Response ___ Code Blue ___ Other (describe below) Pastoral Care Referral From _x__ Patient _x__ Family ___ Nurse ___ Physician ___ Hearth Feeder ___ Dubbing Machine Operator ___ Other (describe below) Sacrament/Intervention _x__ Active listening ___ Anointing ___ Zoroastrian ___ Bereavement ___ Communion _x__ Sandra exploration ___ _x__ Life review _x__ Prayer ___ Reconciliation ___ Sacrament of Sick _x__ Supportive presence ___ Wedding ___ Other (describe below) Pastoral Comments patient is unable to speak; mother of pt is sitting with him; support directed to pt and mother;
[2017-09-17] MEDS: LORazepam 1 MG Tablet GT (14:56)
[2017-09-17 17:00] LABS: Anion Gap 5 (5-15); BUN 13 mg/dL (7-18); BUN/Creat Ratio 27.4 RATIO (10-20); Calcium,Total 8.6 mg/dL (8.5-10.1); Chloride 111 mmol/L (98-107); Creatinine, Serum 0.48 mg/dL (0.70-1.30); EST Glomerular Filtration Rate 213 mL/min (>60); Est Glom Filt Rate - Afr Amer 257 mL/min (>60); Estimated Creatinine Clearance 151.91 ml/min; Glucose 96 mg/dL (74-106); Potassium 3.6 mmol/L (3.5-5.1); Sodium Level 142 mmol/L (136-145)
[2017-09-17] MEDS: Jevity 1.5 1,000 ML 40 ML GT (22:22)
[2017-09-18] VITALS (13 sets, daily range): BP systolic 93–119; BP diastolic 68–79; PULSE 65–85; RESP 16–20; TEMP 36.3–37.1; O2SAT 94–97
[2017-09-18] MEDS: Simethicone 40MG/0.6ML Bottle 40 MG GT ×3 (05:08→21:42)
[2017-09-18] MEDS: Metoclopramide 10 MG/10 ML UDC 5 MG GT ×3 (05:08→21:43)
[2017-09-18] MEDS: Piperacil/Tazobactam 3.375 GM/50 ML ML IV ×3 (05:11→21:48)
[2017-09-18] MEDS: Albuterol 2.5 MG/3 ML VIAL.NEB. INHALATION ×2 (07:44→21:02)
[2017-09-18] MEDS: Loratadine 10 MG Tablet GT (09:05)
[2017-09-18] MEDS: Phenobarbital 20 MG/5 ML UDC 60 MG GT ×2 (09:05→21:48)
[2017-09-18] MEDS: Enoxaparin 40 MG/0.4 ML Syringe SC (09:05)
[2017-09-18 10:42] LABS: Vancomycin, Trough Level 33.6 ug/mL (5.0-15.0)
--- NOTE | 2017-09-18 10:45 | PCM.PN.INT ---
Subjective: Patient transferred out of the intensive care unit yesterday. Patient did well overnight. Did speak with patient's father at the bedside and he believes the patient is approaching normal baseline at this time. Patient's mouth is much more wet and he is no longer spastic. Patient tolerated this tube feeds and no emesis has been reported. General: Alert, Non-Cooperative, - - Appears at baseline. CP appearance. HEENT: Atraumatic, PERRLA, EOMI, Normocephalic, - - No scleral icterus or injection noted. Oral: - - Poor dentition. Mallampati 4. Gingival hyperplasia. Neck: Supple, No JVD, No Nodes, Trachea Midline Lungs: No rhonchi, No wheeze, No rales, Diminished, - - Fair effort. Symmetric expansion. Cardiovascular: Regular rate, Regular Rhythm, Normal S1, Normal S2, No murmurs, No rub noted, No Gallop Abdomen: Bowel Sounds Present, Soft, Non Tender, Non-Distended, Obese Extremities: No cyanosis, Capillary Refill Less than 3 Seconds, Clubbing, Edema Skin: - - No significant change compared to previous Musculoskeletal: No Tenderness to Palpation of Joints or Extremities, - - Less spasticity compared to previous. Clubfeet noted. Lymphatic: No Cervical, Supraclavicular, or Inguinal Adenopathy Neurological: - - Appears close to baseline. Spasticity improved compared to previous. Nonverbal at baseline. Actively looking around the room. Psych/Mental Status: Flat Affect Vital Signs Temp Pulse Resp BP Pulse Ox 36.6 C 80 16 102/71 94 09/18/17 04:48 09/18/17 07:44 09/18/17 07:44 09/18/17 04:48 09/18/17 07:44 Oxygen Flow Rate (L/min) 2 Oxygen Delivery Method Nasal Cannula Weight: 80.3 kg Body Mass Index (BMI) 34.4 Intake and Output for Last 24 Hours 09/16/17 09/17/17 09/18/17 23:59 23:59 23:59 Intake Total 1395 / 1395 2817.8 / 2817.8 728 / 728 Output Total 400 / 400 1300 / 1300 130 / 130 Balance 995 / 995 1517.8 / 1517.8 598 / 598 Labs (Last 48 Hours) 09/16/17 09/16/17 09/16/17 20:00 20:40 20:55 WBC 6.7 RBC 3.76 L Hgb 11.2 L Hct 34.1 L MCV 90.7 MCH 29.8 MCHC 32.8 RDW 15.1 H RDW Differential 49.2 H Plt Count 110 L MPV 11.0 Immature Gran % (Auto) 0.200 Neut % (Auto) 72.2 H Lymph % (Auto) 15.6 L Frederick % (Auto) 11.3 H Eos % (Auto) 0.5 Baso % (Auto) 0.2 Absolute Neuts (auto) 4.8 Absolute Lymphs (auto) 1.04 Total Counted Not Reportable Specimen Type Sample Site VBG pH VBG pO2 VBG O2 Sat (Calc) VBG O2 Content VBG Base Excess POC Mix VBG pCO2 Pt Tmp O2 Delivery Device Liter Flow Blood Gas Notified Whom Blood Gas Notified Time Sodium Potassium Chloride Carbon Dioxide Anion Gap BUN Creatinine Estim Creat Clear Calc Est GFR (MDRD) Af Amer Est GFR (MDRD) Non-Af BUN/Creatinine Ratio Glucose Lactic Acid Calcium Phosphorus Magnesium Urine Color Yellow Urine Clarity Sl. Cloudy Urine pH 8.0 Ur Specific Aurelia 1.010 Urine Protein Negative Urine Glucose (UA) Normal Urine Ketones Negative Urine Occult Blood 150 H Urine Nitrite Negative Urine Bilirubin Negative Urine Urobilinogen Normal Ur Leukocyte Esterase Negative Vancomycin Trough MRSA (PCR) Negative 09/16/17 09/16/17 09/16/17 20:55 20:55 23:41 WBC RBC Hgb Hct MCV MCH MCHC RDW RDW Differential Plt Count MPV Immature Gran % (Auto) Neut % (Auto) Lymph % (Auto) Frederick % (Auto) Eos % (Auto) Baso % (Auto) Absolute Neuts (auto) Absolute Lymphs (auto) Total Counted Specimen Type BRANDYN Sample Site OTHER VBG pH 7.44 H VBG pO2 66 H VBG O2 Sat (Calc) 94 H VBG O2 Content 27 VBG Base Excess 2 POC Mix VBG pCO2 Pt Tmp 38.4 L O2 Delivery Device Nasal Can Liter Flow 5.0 Blood Gas Notified Whom [facility] Blood Gas Notified Time 2335 Sodium 141 Potassium 4.7 Chloride 107 Carbon Dioxide 27.0 Anion Gap 7 BUN 17 Creatinine 0.54 L Estim Creat Clear Calc 135.03 Est GFR (MDRD) Af Amer 222 Est GFR (MDRD) Non-Af 183 BUN/Creatinine Ratio 31.5 H Glucose 71 L Lactic Acid 1.0 Calcium 8.5 Phosphorus 3.5 Magnesium 1.7 Urine Color Urine Clarity Urine pH Ur Specific Aurelia Urine Protein Urine Glucose (UA) Urine Ketones Urine Occult Blood Urine Nitrite Urine Bilirubin Urine Urobilinogen Ur Leukocyte Esterase Vancomycin Trough MRSA (PCR) 09/17/17 09/17/17 09/18/17 04:15 16:40 10:09 WBC RBC Hgb Hct MCV MCH MCHC RDW RDW Differential Plt Count MPV Immature Gran % (Auto) Neut % (Auto) Lymph % (Auto) Frederick % (Auto) Eos % (Auto) Baso % (Auto) Absolute Neuts (auto) Absolute Lymphs (auto) Total Counted Specimen Type Sample Site VBG pH VBG pO2 VBG O2 Sat (Calc) VBG O2 Content VBG Base Excess POC Mix VBG pCO2 Pt Tmp O2 Delivery Device Liter Flow Blood Gas Notified Whom Blood Gas Notified Time Sodium 146 H 142 Potassium 4.2 3.6 Chloride 111 H 111 H Carbon Dioxide 29.0 26.0 Anion Gap 6 5 BUN 15 13 Creatinine 0.50 L 0.48 L Estim Creat Clear Calc 145.83 151.91 Est GFR (MDRD) Af Amer 244 257 Est GFR (MDRD) Non-Af 201 213 BUN/Creatinine Ratio 30.1 H 27.4 H Glucose 77 96 Lactic Acid Calcium 8.4 L 8.6 Phosphorus Magnesium Urine Color Urine Clarity Urine pH Ur Specific Aurelia Urine Protein Urine Glucose (UA) Urine Ketones Urine Occult Blood Urine Nitrite Urine Bilirubin Urine Urobilinogen Ur Leukocyte Esterase Vancomycin Trough 33.6 H MRSA (PCR) Microbiology 09/16/17 20:00 Urine Catheter - Catheter Urine Culture - Preliminary Culture exhibits no growth. 09/16/17 20:00 Urine Catheter - Catheter Legionella Antigen - Final Medical Necessity - Tobacco Use Smoking Status: Never smoker Tobacco Use: Non-smoker Assessment/Plan All Active Problems (Last Reviewed 09/16/17 @ 17:51 by Torey James DO) Severe sepsis (Acute) Aspiration pneumonia (Acute) H/O eye surgery (Resolved) Aspiration pneumonia (Acute) Sepsis (Acute) Edema (Acute) Tachycardia (Acute) Difficult intravenous access (Acute) Sepsis (Acute) C. difficile colitis (Resolved) RECOMMENDATIONS: 1. Discontinue vancomycin, likely complete 5 day course of antibiotics 2. Aggressive mouth care, follow saturations closely 3. Okay to continue tube feeds 4. Consider urination challenge prior to discharge 5. Wean oxygen as tolerated IMPRESSIONS: 1. Severe sepsis secondary to probable aspiration pneumonia Patient with increased oral secretions per the mother and infiltrates noted bilaterally on chest x-ray. Patient does have a PEG, but no obvious emesis has been reported by the mother. Patient's vancomycin level is elevated and MRSA swab was negative. Will discontinue vancomycin. Continue with antibiotics. Likely treat for 5 days, but some concern for risk of development of C. difficile. 2. Chronic respiratory insufficiency secondary to recurrent aspiration pneumonia No obvious aspiration event at this time. Chest x-ray was personally reviewed and shows a slight haziness over the both lung pisano. Echocardiogram and CT scan of the chest in the past did show a dilated IVC did show enlarged pulmonary arteries. 3. History of C. difficile colitis status post colostomy/history of upper GI bleed Patient is currently being fed with increased osmolarity tube feeds. This may lead to some diarrhea. Likely okay to hold patient's baseline bowel regimen if this develops. Obtain C. difficile if necessary. 4. Sinus tachycardia RESOLVED> echocardiogram was relatively unremarkable in the past. Likely response to severe sepsis. Continue supportive care and monitor with telemetry. 5. Cerebral palsy/history of seizure disorder/multiple previous admissions Complicates care, management, recovery and prognosis. Code Visit Inpatient E&M: 23931 Subs Hosp L2
--- NOTE | 2017-09-18 10:49 | RAD_ITS ---
STUDY: X-RAY - ABDOMEN/PELVIS REASON FOR EXAM: Male, 37 years old. Nausea and vomiting. TECHNIQUE: Single AP view of the abdomen / pelvis. COMPARISON: None. FINDINGS: The visualized portions of lung bases demonstrate mild left basilar infiltrate and atelectatic changes in the right lung base. There are nonspecific gaseous bowel loops and colon. There is a neural stimulator wire extending in the thoracic spine to the level of T10. Rectal line is seen. There is demineralization of the osseous structures. RAD/Abdomen Single View IMPRESSION: Nonspecific gaseous small bowel loops and colon which could be due to mild ileus. Electronically Signed: Edis Dhaliwal MD at 14:38 EDT Tel , Service support ,
[2017-09-18] MEDS: LORazepam 1 MG Tablet GT (13:56)
[2017-09-18] MEDS: Lactulose 20 GM/30 ML UDC GT (14:28)
--- NOTE | 2017-09-18 17:02 | PCM.PN.HOSP ---
Patient Problems: Active and Suspected Problems (Last Reviewed 09/16/17 @ 17:51 by Torey James DO) Severe sepsis (Acute) Aspiration pneumonia (Acute) Subjective: Patient was seen and examined. Had an episode of emesis today. Previous tube feed residuals were less than 10mls. No other acute events overnight. Objective: General: Alert, Cooperative, - - aphasic, appears anxious HEENT: Atraumatic, PERRLA, EOMI, Normocephalic, - - Healing scar of tip of scar from biting, involuntary opening of the mouth and oral breathing. Oral: Dry Mucosa - from mouth breathing or opening mouth Neck: Supple, No JVD, Negative Carotid Bruits Lungs: Clear to auscultation - anteriorly, Normal air movement, Diminished - at the lung bases Cardiovascular: Regular rate, Regular Rhythm, Normal S1, Normal S2, No murmurs Abdomen: Bowel Sounds Present, Soft, Non Tender, Non-Distended, No Hepato-splenomegaly, Obese, - - Colostomy bag, baclofen pump to Left upper quadrant Extremities: Edema - Bilateral, pitting, nontender, up to the thigh. Skin: No rashes Musculoskeletal: No Tenderness to Palpation of Joints or Extremities, - - Contractures of the joints especially wrists and feet Neurological: - - Alert, aphasic, drooling, history of cerebral palsy Psych/Mental Status: Normal Affect, Appropriate Vitals/I&O's: Vital Signs Temp Pulse Resp BP Pulse Ox 98.7 F 83 18 111/79 95 09/18/17 15:01 09/18/17 15:12 09/18/17 15:01 09/18/17 15:01 09/18/17 15:01 Oxygen Flow Rate (L/min) 2 Oxygen Delivery Method Nasal Cannula Weight: 80.3 kg Body Mass Index (BMI) 34.4 Intake and Output for Last 24 Hours 09/16/17 09/17/17 09/18/17 23:59 23:59 23:59 Intake Total 1395 / 1395 2817.8 / 2817.8 1146 / 1146 Output Total 400 / 400 1300 / 1300 480 / 480 Balance 995 / 995 1517.8 / 1517.8 666 / 666 Microbiology Past 72 Hours 09/16/17 20:00 Urine Catheter - Catheter Urine Culture - Preliminary Culture exhibits no growth. 09/16/17 20:00 Urine Catheter - Catheter Legionella Antigen - Final Laboratory Results 09/18/17 10:09: Vancomycin Trough 33.6 H Current Medications Albuterol Sulfate (Ventolin Aerosols) 2.5 mg INHALATION Q2H PRN PRN PRN Reason: SHORTNESS OF BREATH Last Admin: 09/18/17 07:44 Dose: 2.5 mg Chlorhexidine Gluconate () 1 each TOPICAL DAILY [facility] Last Admin: 09/18/17 08:53 Dose: Not Given Enoxaparin Sodium (Lovenox) 40 mg SC DAILY@1000 JOYCE Last Admin: 09/18/17 09:05 Dose: 40 mg Heparin Sodium (Beef Lung) (Heparin 500 Unit/5 Ml (100/Ml)) 500 unit IV UD PRN PRN Reason: HEPARIN FLUSH Piperacillin Sod/Tazobactam Sod (Zosyn) 3.375 gm in 50 mls @ 12.5 mls/hr IV Q8 [facility] Last Admin: 09/18/17 13:54 Dose: 12.5 mls/hr Pantoprazole Sodium 40 mg/ (Sodium Chloride) 110 mls @ 330 mls/hr IV Q24 [facility] Last Admin: 09/18/17 09:57 Dose: 330 mls/hr Enteral Nutritional Formula (Jevity 1.5) 1,000 mls @ 40 mls/hr GT .Q25H [facility] Last Admin: 09/17/17 22:22 Dose: 40 mls/hr Lactobacillus Acidophilus (Acidophilus) 1 tablet GT DAILY [facility] Last Admin: 09/18/17 09:05 Dose: 1 tablet Lactulose (Chronulac, Cephulac) 20 gm GT DAILY [facility] Last Admin: 09/18/17 14:28 Dose: 20 gm Loratadine (Claritin) 10 mg GT DAILY [facility] Last Admin: 09/18/17 09:05 Dose: 10 mg Lorazepam (Ativan) 1 mg GT Q6H PRN PRN PRN Reason: ANXIETY Last Admin: 09/18/17 13:56 Dose: 1 mg Magnesium Hydroxide (Milk Of Magnesia) 35 - 50 ml GT DAILY PRN PRN PRN Reason: Constipation Metoclopramide HCl (Reglan) 5 mg GT TID [facility] Last Admin: 09/18/17 13:54 Dose: 5 mg Non-Formulary Medication (Baclofen) 734.1 mcg INTRATH UD [facility] Last Admin: 09/17/17 20:25 Dose: Not Given Ondansetron HCl (Zofran) 4 mg IV Q8H PRN PRN PRN Reason: NAUSEA Ondansetron HCl (Zofran Odt) 4 mg GT TID PRN PRN PRN Reason: NAUSEA Phenobarbital (Phenobarbital) 60 mg GT BID [facility] Last Admin: 09/18/17 09:05 Dose: 60 mg Simethicone (Mylicon) 40 mg GT TID [facility] Last Admin: 09/18/17 13:54 Dose: 40 mg Sodium Chloride () 10 ml IV UD PRN PRN Reason: VAD FLUSH Medical Necessity - Tobacco Use Smoking Status: Never smoker Tobacco Use: Non-smoker Assessment/Plan All Active Problems (Last Reviewed 09/16/17 @ 17:51 by Torey James DO) Severe sepsis (Acute) Aspiration pneumonia (Acute) H/O eye surgery (Resolved) Aspiration pneumonia (Acute) Sepsis (Acute) Edema (Acute) Tachycardia (Acute) Difficult intravenous access (Acute) Sepsis (Acute) C. difficile colitis (Resolved) 37 year-old male with past medical history of cerebral palsy, dysphagia, status post PEG tube, status post colostomy admitted with elevated heart rate, respiratory rate and low pulse ox. 1.Episode of nausea and vomiting, likely secondary to ileus, no electrolyte abnormalitis seen, will check magnesium level. if improved, will restart tube feeds at 25mls/hr and slowly increased back up. 2. Severe sepsis secondary to aspiration pneumonia POA, improving on IV Zosyn (day 3) of antibiotics. 3. Hypernatremia secondary to dehydration, on tube feeds with flushes, resolved 4. 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 Cerebral palsy, complicating care 6. DVT PPx - Lovenox SC Code Visit Inpatient E&M: 18124 Subs Hosp L2
--- NOTE | 2017-09-18 17:06 | PN_ITS ---
Patient Problems: Active and Suspected Problems (Last Reviewed 09/16/17 @ 17:51 by Torey James DO) Severe sepsis (Acute) Aspiration pneumonia (Acute) Subjective: Patient was seen and examined. Had an episode of emesis today. Previous tube feed residuals were less than 10mls. No other acute events overnight. Objective: General: Alert, Cooperative, - - aphasic, appears anxious HEENT: Atraumatic, PERRLA, EOMI, Normocephalic, - - Healing scar of tip of scar from biting, involuntary opening of the mouth and oral breathing. Oral: Dry Mucosa - from mouth breathing or opening mouth Neck: Supple, No JVD, Negative Carotid Bruits Lungs: Clear to auscultation - anteriorly, Normal air movement, Diminished - at the lung bases Cardiovascular: Regular rate, Regular Rhythm, Normal S1, Normal S2, No murmurs Abdomen: Bowel Sounds Present, Soft, Non Tender, Non-Distended, No Hepato- splenomegaly, Obese, - - Colostomy bag, baclofen pump to Left upper quadrant Extremities: Edema - Bilateral, pitting, nontender, up to the thigh. Skin: No rashes Musculoskeletal: No Tenderness to Palpation of Joints or Extremities, - - Contractures of the joints especially wrists and feet Neurological: - - Alert, aphasic, drooling, history of cerebral palsy Psych/Mental Status: Normal Affect, Appropriate Vitals/I&O's: Vital Signs Temp Pulse Resp BP Pulse Ox 98.7 F 83 18 111/79 95 09/18/17 15:01 09/18/17 15:12 09/18/17 15:01 09/18/17 15:01 09/18/17 15:01 Oxygen Flow Rate (L/min) 2 Oxygen Delivery Method Nasal Cannula Weight: 80.3 kg Body Mass Index (BMI) 34.4 Intake and Output for Last 24 Hours 09/16/17 09/17/17 09/18/17 23:59 23:59 23:59 Intake Total 1395 / 1395 2817.8 / 2817.8 1146 / 1146 Output Total 400 / 400 1300 / 1300 480 / 480 Balance 995 / 995 1517.8 / 1517.8 666 / 666 Microbiology Past 72 Hours 09/16/17 20:00 Urine Catheter - Catheter Urine Culture - Preliminary Culture exhibits no growth. 09/16/17 20:00 Urine Catheter - Catheter Legionella Antigen - Final Laboratory Results 09/18/17 10:09: Vancomycin Trough 33.6 H Current Medications Albuterol Sulfate (Ventolin Aerosols) 2.5 mg INHALATION Q2H PRN PRN PRN Reason: SHORTNESS OF BREATH Last Admin: 09/18/17 07:44 Dose: 2.5 mg Chlorhexidine Gluconate () 1 each TOPICAL DAILY [facility] Last Admin: 09/18/17 08:53 Dose: Not Given Enoxaparin Sodium (Lovenox) 40 mg SC DAILY@1000 JOYCE Last Admin: 09/18/17 09:05 Dose: 40 mg Heparin Sodium (Beef Lung) (Heparin 500 Unit/5 Ml (100/Ml)) 500 unit IV UD PRN PRN Reason: HEPARIN FLUSH Piperacillin Sod/Tazobactam Sod (Zosyn) 3.375 gm in 50 mls @ 12.5 mls/hr IV Q8 [facility] Last Admin: 09/18/17 13:54 Dose: 12.5 mls/hr Pantoprazole Sodium 40 mg/ (Sodium Chloride) 110 mls @ 330 mls/hr IV Q24 [facility] Last Admin: 09/18/17 09:57 Dose: 330 mls/hr Enteral Nutritional Formula (Jevity 1.5) 1,000 mls @ 40 mls/hr GT .Q25H [facility] Last Admin: 09/17/17 22:22 Dose: 40 mls/hr Lactobacillus Acidophilus (Acidophilus) 1 tablet GT DAILY [facility] Last Admin: 09/18/17 09:05 Dose: 1 tablet Lactulose (Chronulac, Cephulac) 20 gm GT DAILY [facility] Last Admin: 09/18/17 14:28 Dose: 20 gm Loratadine (Claritin) 10 mg GT DAILY [facility] Last Admin: 09/18/17 09:05 Dose: 10 mg Lorazepam (Ativan) 1 mg GT Q6H PRN PRN PRN Reason: ANXIETY Last Admin: 09/18/17 13:56 Dose: 1 mg Magnesium Hydroxide (Milk Of Magnesia) 35 - 50 ml GT DAILY PRN PRN PRN Reason: Constipation Metoclopramide HCl (Reglan) 5 mg GT TID [facility] Last Admin: 09/18/17 13:54 Dose: 5 mg Non-Formulary Medication (Baclofen) 734.1 mcg INTRATH UD [facility] Last Admin: 09/17/17 20:25 Dose: Not Given Ondansetron HCl (Zofran) 4 mg IV Q8H PRN PRN PRN Reason: NAUSEA Ondansetron HCl (Zofran Odt) 4 mg GT TID PRN PRN PRN Reason: NAUSEA Phenobarbital (Phenobarbital) 60 mg GT BID [facility] Last Admin: 09/18/17 09:05 Dose: 60 mg Simethicone (Mylicon) 40 mg GT TID [facility] Last Admin: 09/18/17 13:54 Dose: 40 mg Sodium Chloride () 10 ml IV UD PRN PRN Reason: VAD FLUSH Medical Necessity - Tobacco Use Smoking Status: Never smoker Tobacco Use: Non-smoker Assessment/Plan All Active Problems (Last Reviewed 09/16/17 @ 17:51 by Torey James DO) Severe sepsis (Acute) Aspiration pneumonia (Acute) H/O eye surgery (Resolved) Aspiration pneumonia (Acute) Sepsis (Acute) Edema (Acute) Tachycardia (Acute) Difficult intravenous access (Acute) Sepsis (Acute) C. difficile colitis (Resolved) 37 year-old male with past medical history of cerebral palsy, dysphagia, status post PEG tube, status post colostomy admitted with elevated heart rate, respiratory rate and low pulse ox. 1.Episode of nausea and vomiting, likely secondary to ileus, no electrolyte abnormalitis seen, will check magnesium level. if improved, will restart tube feeds at 25mls/hr and slowly increased back up. 2. Severe sepsis secondary to aspiration pneumonia POA, improving on IV Zosyn ( day 3) of antibiotics. 3. Hypernatremia secondary to dehydration, on tube feeds with flushes, resolved 4. 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 Cerebral palsy, complicating care 6. DVT PPx - Lovenox SC Code Visit Inpatient E&M: 50852 Subs Hosp L2
[2017-09-18 17:34] LABS: Magnesium 2.1 mg/dL (1.6-2.6)
[2017-09-18] MEDS: Jevity 1.5 1,000 ML 25 ML GT (17:53)
[2017-09-18] MEDS: 0.9% Normal Saline 1,000 ML 75 ML IV (17:54)
[2017-09-19] VITALS (12 sets, daily range): BP systolic 114–128; BP diastolic 73–88; PULSE 80–105; RESP 16–18; TEMP 36.4–36.8; O2SAT 93–97
[2017-09-19] MEDS: 0.9% Normal Saline 1,000 ML 100 ML IV (05:57)
[2017-09-19] MEDS: Piperacil/Tazobactam 3.375 GM/50 ML ML IV ×3 (05:58→21:07)
[2017-09-19] MEDS: Simethicone 40MG/0.6ML Bottle 40 MG GT ×3 (06:00→21:07)
[2017-09-19] MEDS: Metoclopramide 10 MG/10 ML UDC 5 MG GT ×3 (06:00→21:06)
--- NOTE | 2017-09-19 06:04 | RAD_ITS ---
STUDY: X-RAY CHEST REASON FOR EXAM: Male, 37 years old. Shortness of breath. Dyspnea. TECHNIQUE: Single AP portable view of the chest. COMPARISON: September 16, 2017 FINDINGS: Port on the right extends to the cavoatrial junction. Lungs are underexpanded. The mid and lower lung opacities are increased. There is no demonstrated pleural abnormality. Normal size heart. Normal mediastinum and rachelel. Normal visualized pulmonary arteries. Normal visualized aortic arch and descending thoracic aorta. Normal visualized thoracic spine. Normal visualized ribs, clavicles, and shoulders. There is no demonstrated abnormality of the visualized soft tissue structures of the upper abdomen. RAD/Chest 1 View (Portable) IMPRESSION: Hypoventilatory exam. Worsening bilateral infiltrates or edema. Electronically Signed: Siddharth Benavides MD at 11:19 EDT , Service support ,
[2017-09-19 06:14] LABS: Absolute Lymphocyte Count 1.04 X10^3/ul (0.83-4.51); Absolute Neutrophil Count 2.1 X10^3/uL (2.0-7.7); Eosinophil# 0.17 X10^3/uL; Eosinophils% 4.1 % (0-5); Hematocrit 30.1 % (40-54); Hemoglobin 9.5 g/dl (13.0-16.5); Lymphocyte # 1.04 X10^3/ul (4.0); Lymphocyte % 24.9 % (19-41); Mean Corp Hgb Conc 31.6 g/gl (32-36); Mean Corpuscular Hgb 30.4 pg (27.0-32.0); Mean Corpuscular Volume 96.5 fL (80-94); Mean Platelet Vol. 10.4 fl (6.2-12.0); Monocyte# 0.85 X10^3/uL; Monocyte% 20.4 % (0-10); Neutrophil % 50.4 % (47-70); Platelet Count 73 K/mm3 (150-450); RBC Distribution Width CV 15.6 % (11.6-14.6); RBC Distribution Width SD 53.4 fl (35.1-43.9); Red Blood Count 3.12 M/mm3 (4.6-6.2); White Blood Count 4.2 K/mm3 (4.4-11.0)
[2017-09-19 06:16] LABS: POSITIVE COUNT NO; POSITIVE DIFFERENTIAL NO; POSITIVE MORPHOLOGY NO
[2017-09-19 06:55] LABS: Anion Gap 6 (5-15); BUN 13 mg/dL (7-18); BUN/Creat Ratio 13.6 RATIO (10-20); Calcium,Total 8.2 mg/dL (8.5-10.1); Chloride 115 mmol/L (98-107); Creatinine, Serum 0.96 mg/dL (0.70-1.30); EST Glomerular Filtration Rate 95 mL/min (>60); Est Glom Filt Rate - Afr Amer 115 mL/min (>60); Estimated Creatinine Clearance 75.95 ml/min; Glucose 100 mg/dL (74-106); Potassium 3.4 mmol/L (3.5-5.1); Sodium Level 150 mmol/L (136-145)
[2017-09-19] MEDS: Albuterol 2.5 MG/3 ML VIAL.NEB. INHALATION ×2 (07:44→21:00)
[2017-09-19] MEDS: Loratadine 10 MG Tablet GT (09:30)
[2017-09-19] MEDS: Lactulose 20 GM/30 ML UDC GT (09:30)
[2017-09-19] MEDS: Enoxaparin 40 MG/0.4 ML Syringe SC (09:30)
[2017-09-19] MEDS: Phenobarbital 20 MG/5 ML UDC 60 MG GT ×2 (09:41→21:06)
[2017-09-19 10:08] LABS: Magnesium 2.2 mg/dL (1.6-2.6)
[2017-09-19] MEDS: 0.45% Normal Saline 1,000 ML 100 ML IV (10:50)
[2017-09-19] MEDS: 0.9% NaCl VAD Flush 10 ML IV (11:19)
[2017-09-19] MEDS: Polyethylene Glycol 3350 17 GM PACKET GT (11:20)
--- NOTE | 2017-09-19 12:33 | PCM.PROGNOTE ---
<Paul Jackson - Last Filed: 09/19/17 12:33> Patient Problems: Active and Suspected Problems (Last Reviewed 09/16/17 @ 17:51 by Torey James DO) Severe sepsis (Acute) Aspiration pneumonia (Acute) Subjective: Family reports that he appears to be less agitated today and without further nausea or vomiting. No cough. No fever. He has somewhat loose output from his ostomy. They also report he has chronic constipation and normally they also use miralax daily scheduled to prevent constipation. Will add this as KUB yesterday did show possibly mild ileus. No other issues. Mother is equipment associate caregiver. - Physical Exam General: Alert, Oriented x3, Cooperative HEENT: Atraumatic, PERRLA, EOMI, Normocephalic Neck: Supple, No JVD, Negative Carotid Bruits Lungs: Clear to auscultation, Normal air movement Cardiovascular: Regular rate, No murmurs Abdomen: Bowel Sounds Present, Soft, Non Tender Extremities: No edema, Capillary Refill Less than 3 Seconds Skin: No rashes, No breakdown Musculoskeletal: No Tenderness to Palpation of Joints or Extremities Neurological: Cranial nerves II-XII grossly intact Psych/Mental Status: Appropriate Vital Signs Temp Pulse Resp BP Pulse Ox 97.6 F L 88 18 114/73 93 09/19/17 10:03 09/19/17 11:05 09/19/17 10:03 09/19/17 10:03 09/19/17 10:03 Oxygen Flow Rate (L/min) 2 Oxygen Delivery Method Nasal Cannula Weight: 179 lb 7.3 oz Body Mass Index (BMI) 34.4 Intake and Output for Last 24 Hours 09/17/17 09/18/17 09/19/17 23:59 23:59 23:59 Intake Total 2817.8 / 2817.8 2149 / 2149 2684.8 / 2684.8 Output Total 1300 / 1300 1005 / 1005 200 / 200 Balance 1517.8 / 1517.8 1144 / 1144 2484.8 / 2484.8 Microbiology Past 72 Hours 09/16/17 20:00 Urine Culture - Final Urine Catheter - Catheter Culture exhibits no growth. 09/16/17 20:00 Legionella Antigen - Final Urine Catheter - Catheter Laboratory Tests Past 24 Hrs 09/18/17 09/19/17 09/19/17 10:09 05:40 05:40 WBC 4.2 L RBC 3.12 L Hgb 9.5 L Hct 30.1 L MCV 96.5 H MCH 30.4 MCHC 31.6 L RDW 15.6 H RDW Differential 53.4 H Plt Count 73 L MPV 10.4 Immature Gran % (Auto) 0.200 Neut % (Auto) 50.4 Lymph % (Auto) 24.9 [place] % (Auto) 20.4 H Eos % (Auto) 4.1 Baso % (Auto) 0.0 Absolute Neuts (auto) 2.1 Absolute Lymphs (auto) 1.04 Total Counted Not Reportable Sodium 150 H Potassium 3.4 L Chloride 115 H Carbon Dioxide 29.0 Anion Gap 6 BUN 13 Creatinine 0.96 Estim Creat Clear Calc 75.95 Est GFR (MDRD) Af Amer 115 Est GFR (MDRD) Non-Af 95 BUN/Creatinine Ratio 13.6 Glucose 100 Calcium 8.2 L Magnesium 2.1 09/19/17 05:40 WBC RBC Hgb Hct MCV MCH MCHC RDW RDW Differential Plt Count MPV Immature Gran % (Auto) Neut % (Auto) Lymph % (Auto) [place] % (Auto) Eos % (Auto) Baso % (Auto) Absolute Neuts (auto) Absolute Lymphs (auto) Total Counted Sodium Potassium Chloride Carbon Dioxide Anion Gap BUN Creatinine Estim Creat Clear Calc Est GFR (MDRD) Af Amer Est GFR (MDRD) Non-Af BUN/Creatinine Ratio Glucose Calcium Magnesium 2.2 Medical Necessity - Tobacco Use Smoking Status: Never smoker Tobacco Use: Non-smoker Assessment/Plan All Active Problems (Last Reviewed 09/16/17 @ 17:51 by Torey James DO) Severe sepsis (Acute) Aspiration pneumonia (Acute) H/O eye surgery (Resolved) Aspiration pneumonia (Acute) Sepsis (Acute) Edema (Acute) Tachycardia (Acute) Difficult intravenous access (Acute) Sepsis (Acute) C. difficile colitis (Resolved) 1. Severe sepsis 2/2 aspiration pna - advance tube feed. Continue zosyn (d#4). Does use oxygen at night at home. Currently stable on 2 L. Pulm following. -legionella antigen negative -Urine cx blood cx neg. 2. N/v - resolved. KUB showed early ileus. He has hx of severe constipation. Will add back in scheduled daily miralax. 3. Hypernatremia - change to 0.45 NaCl. 4. Hypokalemia - replete with IV K+, mag normal. 5. Dysphagia - PEG in place. actuarial mathematician following. 6. Cerebral palsy-minimally communicative, baclofen pump, PEG feedings, ostomy care. 7. Pancytopenia-continue to trend. Discontinue Lovenox if there is a further decline in platelets. DVT prophylaxis: Lovenox Discharge planning: Patient will return home in the care of his mother This patient was seen by Paul Jackson PA-C under the supervision of Dr. Samayoa <Fiona Samayoa - Last Filed: 09/19/17 13:02> - Physical Exam Vital Signs Temp Pulse Resp BP Pulse Ox 97.6 F L 88 18 114/73 93 09/19/17 10:03 09/19/17 11:05 09/19/17 10:03 09/19/17 10:03 09/19/17 10:03 Oxygen Flow Rate (L/min) 2 Oxygen Delivery Method Nasal Cannula Weight: 81.4 kg Body Mass Index (BMI) 34.4 Intake and Output for Last 24 Hours 09/17/17 09/18/17 09/19/17 23:59 23:59 23:59 Intake Total 2817.8 / 2817.8 2149 / 2149 2684.8 / 2684.8 Output Total 1300 / 1300 1005 / 1005 200 / 200 Balance 1517.8 / 1517.8 1144 / 1144 2484.8 / 2484.8 Microbiology Past 72 Hours 09/16/17 20:00 Urine Culture - Final Urine Catheter - Catheter Culture exhibits no growth. 09/16/17 20:00 Legionella Antigen - Final Urine Catheter - Catheter Laboratory Tests Past 24 Hrs 09/18/17 09/19/17 09/19/17 10:09 05:40 05:40 WBC 4.2 L RBC 3.12 L Hgb 9.5 L Hct 30.1 L MCV 96.5 H MCH 30.4 MCHC 31.6 L RDW 15.6 H RDW Differential 53.4 H Plt Count 73 L MPV 10.4 Immature Gran % (Auto) 0.200 Neut % (Auto) 50.4 Lymph % (Auto) 24.9 [place] % (Auto) 20.4 H Eos % (Auto) 4.1 Baso % (Auto) 0.0 Absolute Neuts (auto) 2.1 Absolute Lymphs (auto) 1.04 Total Counted Not Reportable Sodium 150 H Potassium 3.4 L Chloride 115 H Carbon Dioxide 29.0 Anion Gap 6 BUN 13 Creatinine 0.96 Estim Creat Clear Calc 75.95 Est GFR (MDRD) Af Amer 115 Est GFR (MDRD) Non-Af 95 BUN/Creatinine Ratio 13.6 Glucose 100 Calcium 8.2 L Magnesium 2.1 09/19/17 05:40 WBC RBC Hgb Hct MCV MCH MCHC RDW RDW Differential Plt Count MPV Immature Gran % (Auto) Neut % (Auto) Lymph % (Auto) [place] % (Auto) Eos % (Auto) Baso % (Auto) Absolute Neuts (auto) Absolute Lymphs (auto) Total Counted Sodium Potassium Chloride Carbon Dioxide Anion Gap BUN Creatinine Estim Creat Clear Calc Est GFR (MDRD) Af Amer Est GFR (MDRD) Non-Af BUN/Creatinine Ratio Glucose Calcium Magnesium 2.2 Assessment/Plan Patient was seen and examined. I agree with the interval history, and assessment and plan as documented by physician ophthalmic assistant Paul Jackson. Overnight patient had issues with low urine output for which he received fluid boluses. Had a large urine output. No issues with voiding urine after removal of the Augustin catheter. Feeds have been running at 25 cc/h with almost no residuals every 4 hours Vitals were reviewed and appears stable. Patient appears more relaxed on physical exam, otherwise unremarkable. Bowel sounds are present and normal. Labs show hypernatremia, hypokalemia, drop in hemoglobin is likely due to hemodilution as a stools in his colostomy bag greenish brown, no melena or hematochezia, thrombocytopenia. Will de-escalate to oral Augmentin or Unasyn from tomorrow, will hold Lovenox to platelet counts improve. Possible discharge in 24-48 hours patient remained stable Code Visit Inpatient E&M: 68140 Subs Hosp L2
--- NOTE | 2017-09-19 13:43 | PCM.PROGNOTE ---
Patient Problems: Active and Suspected Problems (Last Reviewed 09/16/17 @ 17:51 by Torey James DO) Severe sepsis (Acute) Aspiration pneumonia (Acute) Subjective: Patient with an emesis yesterday after evaluation, so no discharge was completed. Patient reportedly is not having any cough or fever. Patient is having some loose stools out of his ostomy. Mother at the bedside feels patient is improved compared to previous. Objective: Chest x-ray was personally reviewed and appears to be grossly unchanged compared to previous. Continues to have low lung volumes. - Physical Exam General: Alert, Non-Cooperative, - - Appears to be at baseline. CP appearance HEENT: Atraumatic, PERRLA, EOMI, - - No scleral icterus or injection noted. Oral: Moist Mucosa, No Gingival or Mucosal Lesions/ Ulcerations, - - Gingival hyperplasia. Poor dentition. Neck: Supple, No JVD, No Nodes Lungs: No rhonchi, No wheeze, No rales, Diminished, - - Symmetric expansion. No dullness to percussion. Cardiovascular: Regular rate, Regular Rhythm, Normal S1, Normal S2, No murmurs, No rub noted, No Gallop Abdomen: Bowel Sounds Present, Soft, Non Tender, Non-Distended, Obese Extremities: No cyanosis, No edema, Capillary Refill Less than 3 Seconds, Clubbing Skin: - - No significant change compared to previous Musculoskeletal: No Tenderness to Palpation of Joints or Extremities, - - Clubfeet Lymphatic: No Cervical, Supraclavicular, or Inguinal Adenopathy Neurological: - - Unchanged compared to previous. 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 Psych/Mental Status: Appropriate, Flat Affect Vital Signs Temp Pulse Resp BP Pulse Ox 36.4 C L 88 18 114/73 93 09/19/17 10:03 09/19/17 11:05 09/19/17 10:03 09/19/17 10:03 09/19/17 10:03 Oxygen Flow Rate (L/min) 2 Oxygen Delivery Method Nasal Cannula Weight: 81.4 kg Body Mass Index (BMI) 34.4 Intake and Output for Last 24 Hours 09/17/17 09/18/17 09/19/17 23:59 23:59 23:59 Intake Total 2817.8 / 2817.8 2149 / 2149 2684.8 / 2684.8 Output Total 1300 / 1300 1005 / 1005 200 / 200 Balance 1517.8 / 1517.8 1144 / 1144 2484.8 / 2484.8 Microbiology Past 72 Hours 09/16/17 20:00 Urine Culture - Final Urine Catheter - Catheter Culture exhibits no growth. 09/16/17 20:00 Legionella Antigen - Final Urine Catheter - Catheter Laboratory Tests Past 24 Hrs 09/18/17 09/19/17 09/19/17 10:09 05:40 05:40 WBC 4.2 L RBC 3.12 L Hgb 9.5 L Hct 30.1 L MCV 96.5 H MCH 30.4 MCHC 31.6 L RDW 15.6 H RDW Differential 53.4 H Plt Count 73 L MPV 10.4 Immature Gran % (Auto) 0.200 Neut % (Auto) 50.4 Lymph % (Auto) 24.9 [place] % (Auto) 20.4 H Eos % (Auto) 4.1 Baso % (Auto) 0.0 Absolute Neuts (auto) 2.1 Absolute Lymphs (auto) 1.04 Total Counted Not Reportable Sodium 150 H Potassium 3.4 L Chloride 115 H Carbon Dioxide 29.0 Anion Gap 6 BUN 13 Creatinine 0.96 Estim Creat Clear Calc 75.95 Est GFR (MDRD) Af Amer 115 Est GFR (MDRD) Non-Af 95 BUN/Creatinine Ratio 13.6 Glucose 100 Calcium 8.2 L Magnesium 2.1 09/19/17 05:40 WBC RBC Hgb Hct MCV MCH MCHC RDW RDW Differential Plt Count MPV Immature Gran % (Auto) Neut % (Auto) Lymph % (Auto) [place] % (Auto) Eos % (Auto) Baso % (Auto) Absolute Neuts (auto) Absolute Lymphs (auto) Total Counted Sodium Potassium Chloride Carbon Dioxide Anion Gap BUN Creatinine Estim Creat Clear Calc Est GFR (MDRD) Af Amer Est GFR (MDRD) Non-Af BUN/Creatinine Ratio Glucose Calcium Magnesium 2.2 Clinical Impression(s) from Imaging Studies KUB X-Ray 09/18/17 10:49 IMPRESSION: Nonspecific gaseous small bowel loops and colon which could be due to mild ileus. Electronically Signed: Edis Dhaliwal MD at 14:38 EDT Tel , Service support , Chest X-Ray 09/19/17 06:04 IMPRESSION: Hypoventilatory exam. Worsening bilateral infiltrates or edema. Electronically Signed: Siddharth Benavides MD at 11:19 EDT , Service support , Medical Necessity - Tobacco Use Smoking Status: Never smoker Tobacco Use: Non-smoker Assessment/Plan All Active Problems (Last Reviewed 09/16/17 @ 17:51 by Torey James DO) Severe sepsis (Acute) Aspiration pneumonia (Acute) H/O eye surgery (Resolved) Aspiration pneumonia (Acute) Sepsis (Acute) Edema (Acute) Tachycardia (Acute) Difficult intravenous access (Acute) Sepsis (Acute) C. difficile colitis (Resolved) RECOMMENDATIONS: 1. May extend antibiotic course given possible repeat aspiration 2. Aggressive mouth care, follow saturations closely 3. Okay to continue tube feeds 4. Urination challenge prior to discharge 5. Wean oxygen as tolerated IMPRESSIONS: 1. Severe sepsis secondary to probable aspiration pneumonia Patient with emesis yesterday. Chest x-ray was read as worsening, but I believe that it is grossly unchanged. Very difficult to interpret given low lung volumes. Patient is not reporting productive cough and has not had any fevers overnight. Could extend antibiotics to 10 days given recent complication. 2. Chronic respiratory insufficiency secondary to recurrent aspiration pneumonia No obvious aspiration event at this time. Chest x-ray was personally reviewed and shows a slight haziness over the both lung pisano. Echocardiogram and CT scan of the chest in the past did show a dilated IVC did show enlarged pulmonary arteries. Patient may require supplemental oxygen transiently after discharge. 3. History of C. difficile colitis status post colostomy/history of upper GI bleed Patient is currently being fed with increased osmolarity tube feeds. This is likely the etiology of patient's loose stools. Likely okay to hold patient's baseline bowel regimen if this develops. Obtain C. difficile if necessary. 4. Sinus tachycardia RESOLVED> echocardiogram was relatively unremarkable in the past. Likely response to severe sepsis. Continue supportive care and monitor with telemetry. 5. Cerebral palsy/history of seizure disorder/multiple previous admissions Complicates care, management, recovery and prognosis. Code Visit Inpatient E&M: 38420 Subs Hosp L2
[2017-09-19 19:04] LABS: Anion Gap 4 (5-15); BUN 12 mg/dL (7-18); BUN/Creat Ratio 11.2 RATIO (10-20); Calcium,Total 8.3 mg/dL (8.5-10.1); Chloride 115 mmol/L (98-107); Creatinine, Serum 1.07 mg/dL (0.70-1.30); EST Glomerular Filtration Rate 83 mL/min (>60); Est Glom Filt Rate - Afr Amer 101 mL/min (>60); Estimated Creatinine Clearance 68.15 ml/min; Glucose 100 mg/dL (74-106); Sodium Level 147 mmol/L (136-145)
--- NOTE | 2017-09-19 19:49 | NURSING ---
Was to report sodium to [facility]AMP Choi when resulted. Sodium resulted after 1899 when indio was not available. RE Patrick caring for patient and aware that result was to be reported. Result improved from previous.
[2017-09-20] VITALS (8 sets, daily range): BP systolic 120–130; BP diastolic 80–96; PULSE 80–94; RESP 16–18; TEMP 36.8–36.9; O2SAT 2–97
[2017-09-20] MEDS: Jevity 1.5 1,000 ML 35 ML GT (01:21)
[2017-09-20] MEDS: 0.45% Normal Saline 1,000 ML 100 ML IV (02:37)
[2017-09-20] MEDS: 0.9% NaCl VAD Flush 10 ML IV ×4 (02:37→13:10)
[2017-09-20] MEDS: Metoclopramide 10 MG/10 ML UDC 5 MG GT (05:28)
[2017-09-20] MEDS: Piperacil/Tazobactam 3.375 GM/50 ML ML IV (05:29)
[2017-09-20] MEDS: Simethicone 40MG/0.6ML Bottle 40 MG GT (05:29)
[2017-09-20 05:32] LABS: BUN 11 mg/dL (7-18); BUN/Creat Ratio 10.2 RATIO (10-20); Calcium,Total 8.1 mg/dL (8.5-10.1); Chloride 113 mmol/L (98-107); Creatinine, Serum 1.08 mg/dL (0.70-1.30); EST Glomerular Filtration Rate 82 mL/min (>60); Est Glom Filt Rate - Afr Amer 100 mL/min (>60); Estimated Creatinine Clearance 67.52 ml/min; Glucose 114 mg/dL (74-106); Potassium 3.7 mmol/L (3.5-5.1); Sodium Level 149 mmol/L (136-145)
[2017-09-20 05:33] LABS: Anion Gap 8 (5-15)
[2017-09-20 05:52] LABS: Absolute Lymphocyte Count 1.12 X10^3/ul (0.83-4.51); Absolute Neutrophil Count 2.6 X10^3/uL (2.0-7.7); Basophil# 0.01 X10^3/uL; Basophil% 0.2 % (0-1); Eosinophil# 0.17 X10^3/uL; Eosinophils% 3.7 % (0-5); Hemoglobin 9.1 g/dl (13.0-16.5); Lymphocyte # 1.12 X10^3/ul (4.0); Lymphocyte % 24.2 % (19-41); Mean Corp Hgb Conc 31.4 g/gl (32-36); Mean Corpuscular Hgb 29.6 pg (27.0-32.0); Mean Corpuscular Volume 94.5 fL (80-94); Mean Platelet Vol. 10.4 fl (6.2-12.0); Monocyte# 0.66 X10^3/uL; Monocyte% 14.3 % (0-10); Neutrophil # 2.64 X10^3/uL (2.7-7.7); Neutrophil % 57.2 % (47-70); Platelet Count 88 K/mm3 (150-450); RBC Distribution Width CV 15.7 % (11.6-14.6); RBC Distribution Width SD 53.9 fl (35.1-43.9); Red Blood Count 3.07 M/mm3 (4.6-6.2); White Blood Count 4.6 K/mm3 (4.4-11.0)
[2017-09-20 06:10] LABS: POSITIVE DIFFERENTIAL NO
[2017-09-20 06:11] LABS: POSITIVE COUNT NO; POSITIVE MORPHOLOGY NO
[2017-09-20] MEDS: Albuterol 2.5 MG/3 ML VIAL.NEB. INHALATION (07:27)
[2017-09-20] MEDS: Loratadine 10 MG Tablet GT (09:39)
[2017-09-20] MEDS: Lactulose 20 GM/30 ML UDC GT (09:39)
[2017-09-20] MEDS: Polyethylene Glycol 3350 17 GM PACKET GT (09:39)
[2017-09-20] MEDS: Phenobarbital 20 MG/5 ML UDC 60 MG GT (09:40)
--- NOTE | 2017-09-20 10:34 | PCM.PROGNOTE ---
Patient Problems: Active and Suspected Problems (Last Reviewed 09/16/17 @ 17:51 by Torey James DO) Severe sepsis (Acute) Aspiration pneumonia (Acute) Subjective: The patient was seen and examined at the bedside this morning. Events from the last 24 hours have been reviewed. The patient is currently afebrile, hemodynamically stable and maintaining appropriate oxygen saturations on 2 L/min via nasal cannula. No overnight events were noted. Objective: The patient's most recent lab work, culture data and imaging studies have all been personally reviewed. Blood and urine cultures have shown no growth to date. Urine Legionella antigen was negative. - Physical Exam General: Alert, Cooperative HEENT: Atraumatic, PERRLA, Normocephalic Oral: - - Poor generalized dentition. Neck: Supple, No Nodes, Trachea Midline Lungs: No rhonchi, No wheeze, No rales, Diminished Cardiovascular: Regular rate, Regular Rhythm, Normal S1, Normal S2, No murmurs, No rub noted, No Gallop Abdomen: Bowel Sounds Present, Soft, Non Tender, Obese Extremities: No clubbing, No cyanosis, No edema Skin: - - No significant change from previous. Musculoskeletal: No Tenderness to Palpation of Joints or Extremities Lymphatic: No Cervical, Supraclavicular, or Inguinal Adenopathy Neurological: - - Baseline neurological status. Spastic paralysis noted. Psych/Mental Status: Flat Affect Vital Signs Temp Pulse Resp BP Pulse Ox 98.5 F 89 16 126/96 H 96 09/20/17 09:28 09/20/17 09:28 09/20/17 09:28 09/20/17 09:28 09/20/17 09:28 Oxygen Flow Rate (L/min) 2 Oxygen Delivery Method Nasal Cannula Weight: 179 lb 14.355 oz Body Mass Index (BMI) 34.4 Intake and Output for Last 24 Hours 09/18/17 09/19/17 09/20/17 23:59 23:59 23:59 Intake Total 2149 / 2149 3752.8 / 3752.8 2839.5 / 2839.5 Output Total 1005 / 1005 575 / 575 100 / 100 Balance 1144 / 1144 3177.8 / 3177.8 2739.5 / 2739.5 Microbiology Past 72 Hours 09/16/17 20:00 Urine Culture - Final Urine Catheter - Catheter Culture exhibits no growth. Laboratory Tests Past 24 Hrs 09/19/17 09/20/17 09/20/17 18:30 05:10 05:10 WBC 4.6 RBC 3.07 L Hgb 9.1 L Hct 29.0 L MCV 94.5 H MCH 29.6 MCHC 31.4 L RDW 15.7 H RDW Differential 53.9 H Plt Count 88 L MPV 10.4 Immature Gran % (Auto) 0.400 Neut % (Auto) 57.2 Lymph % (Auto) 24.2 [place] % (Auto) 14.3 H Eos % (Auto) 3.7 Baso % (Auto) 0.2 Absolute Neuts (auto) 2.6 Absolute Lymphs (auto) 1.12 Total Counted Not Reportable Sodium 147 H 149 H Potassium 4.0 3.7 Chloride 115 H 113 H Carbon Dioxide 28.0 28.0 Anion Gap 4 L 8 BUN 12 11 Creatinine 1.07 1.08 Estim Creat Clear Calc 68.15 67.52 Est GFR (MDRD) Af Amer 101 100 Est GFR (MDRD) Non-Af 83 82 BUN/Creatinine Ratio 11.2 10.2 Glucose 100 114 H Calcium 8.3 L 8.1 L Clinical Impression(s) from Imaging Studies Chest X-Ray 09/16/17 16:15 IMPRESSION: Bilateral airspace disease. recommend follow-up to resolution. Electronically Signed: Luis Carlos Smith MD at 16:41 EDT , Service support , Chest X-Ray 09/16/17 20:07 IMPRESSION: Bilateral airspace disease unchanged Electronically Signed: Luis Carlos Smith MD at 21:33 EDT , Service support , KUB X-Ray 09/18/17 10:49 IMPRESSION: Nonspecific gaseous small bowel loops and colon which could be due to mild ileus. Electronically Signed: Edis Dhaliwal MD at 14:38 EDT Tel , Service support , Chest X-Ray 09/19/17 06:04 IMPRESSION: Hypoventilatory exam. Worsening bilateral infiltrates or edema. Electronically Signed: Siddharth Benavides MD at 11:19 EDT , Service support , Medical Necessity - Tobacco Use Smoking Status: Never smoker Tobacco Use: Non-smoker Assessment/Plan All Active Problems (Last Reviewed 09/16/17 @ 17:51 by Torey James DO) Severe sepsis (Acute) Aspiration pneumonia (Acute) H/O eye surgery (Resolved) Aspiration pneumonia (Acute) Sepsis (Acute) Edema (Acute) Tachycardia (Acute) Difficult intravenous access (Acute) Sepsis (Acute) C. difficile colitis (Resolved) RECOMMENDATIONS: 1. Transition from IV Zosyn to Augmentin to complete a 10 day treatment course. 2. Wean supplemental oxygen to maintain saturations at or above 90% 3. The patient can follow-up with our nurse practitioner in the pulmonary medicine clinic 2 weeks following his discharge from the hospital. IMPRESSIONS: 1. Severe sepsis secondary to probable aspiration pneumonia Patient with emesis on presentation to the hospital. Chest x-ray was read as worsening, but I believe that it is grossly unchanged. Very difficult to interpret given low lung volumes. Patient is not reporting productive cough and has not had any fevers. Recommend transitioning from Zosyn to Augmentin to complete a 10 day treatment course. The patient can follow-up with our nurse practitioner in the pulmonary medicine clinic around 2 weeks from the time of his discharge. 2. Chronic respiratory insufficiency secondary to recurrent aspiration pneumonia Chest x-ray was personally reviewed and shows a slight haziness over the both lung pisano. Echocardiogram and CT scan of the chest in the past did show a dilated IVC did show enlarged pulmonary arteries. Patient may require supplemental oxygen transiently after discharge. 3. History of C. difficile colitis status post colostomy/history of upper GI bleed Patient is currently being fed with increased osmolarity tube feeds. This is likely the etiology of patient's loose stools. Likely okay to hold patient's baseline bowel regimen if this develops. 4. Cerebral palsy/history of seizure disorder/multiple previous admissions Complicates care, management, recovery and prognosis. Continue home medications as indicated. This note was generated with [employer] software. It may contain incorrect words, spelling, and punctuation that were not noted in checking the note before signing. Code Visit Inpatient E&M: 46438 Subs Hosp L2
--- NOTE | 2017-09-20 10:37 | PN_ITS ---
Patient Problems: Active and Suspected Problems (Last Reviewed 09/16/17 @ 17:51 by Torey James DO) Severe sepsis (Acute) Aspiration pneumonia (Acute) Subjective: The patient was seen and examined at the bedside this morning. Events from the last 24 hours have been reviewed. The patient is currently afebrile, hemodynamically stable and maintaining appropriate oxygen saturations on 2 L/ min via nasal cannula. No overnight events were noted. Objective: The patient's most recent lab work, culture data and imaging studies have all been personally reviewed. Blood and urine cultures have shown no growth to date. Urine Legionella antigen was negative. - Physical Exam General: Alert, Cooperative HEENT: Atraumatic, PERRLA, Normocephalic Oral: - - Poor generalized dentition. Neck: Supple, No Nodes, Trachea Midline Lungs: No rhonchi, No wheeze, No rales, Diminished Cardiovascular: Regular rate, Regular Rhythm, Normal S1, Normal S2, No murmurs, No rub noted, No Gallop Abdomen: Bowel Sounds Present, Soft, Non Tender, Obese Extremities: No clubbing, No cyanosis, No edema Skin: - - No significant change from previous. Musculoskeletal: No Tenderness to Palpation of Joints or Extremities Lymphatic: No Cervical, Supraclavicular, or Inguinal Adenopathy Neurological: - - Baseline neurological status. Spastic paralysis noted. Psych/Mental Status: Flat Affect Vital Signs Temp Pulse Resp BP Pulse Ox 98.5 F 89 16 126/96 H 96 09/20/17 09:28 09/20/17 09:28 09/20/17 09:28 09/20/17 09:28 09/20/17 09:28 Oxygen Flow Rate (L/min) 2 Oxygen Delivery Method Nasal Cannula Weight: 179 lb 14.355 oz Body Mass Index (BMI) 34.4 Intake and Output for Last 24 Hours 09/18/17 09/19/17 09/20/17 23:59 23:59 23:59 Intake Total 2149 / 2149 3752.8 / 3752.8 2839.5 / 2839.5 Output Total 1005 / 1005 575 / 575 100 / 100 Balance 1144 / 1144 3177.8 / 3177.8 2739.5 / 2739.5 Microbiology Past 72 Hours 09/16/17 20:00 Urine Culture - Final Urine Catheter - Catheter Culture exhibits no growth. Laboratory Tests Past 24 Hrs 09/19/17 09/20/17 09/20/17 18:30 05:10 05:10 WBC 4.6 RBC 3.07 L Hgb 9.1 L Hct 29.0 L MCV 94.5 H MCH 29.6 MCHC 31.4 L RDW 15.7 H RDW Differential 53.9 H Plt Count 88 L MPV 10.4 Immature Gran % (Auto) 0.400 Neut % (Auto) 57.2 Lymph % (Auto) 24.2 [place] % (Auto) 14.3 H Eos % (Auto) 3.7 Baso % (Auto) 0.2 Absolute Neuts (auto) 2.6 Absolute Lymphs (auto) 1.12 Total Counted Not Reportable Sodium 147 H 149 H Potassium 4.0 3.7 Chloride 115 H 113 H Carbon Dioxide 28.0 28.0 Anion Gap 4 L 8 BUN 12 11 Creatinine 1.07 1.08 Estim Creat Clear Calc 68.15 67.52 Est GFR (MDRD) Af Amer 101 100 Est GFR (MDRD) Non-Af 83 82 BUN/Creatinine Ratio 11.2 10.2 Glucose 100 114 H Calcium 8.3 L 8.1 L Clinical Impression(s) from Imaging Studies Chest X-Ray 09/16/17 16:15 IMPRESSION: Bilateral airspace disease. recommend follow-up to resolution. Electronically Signed: Luis Carlos Smith MD at 16:41 EDT , Service support , Chest X-Ray 09/16/17 20:07 IMPRESSION: Bilateral airspace disease unchanged Electronically Signed: Luis Carlos Smith MD at 21:33 EDT , Service support , KUB X-Ray 09/18/17 10:49 IMPRESSION: Nonspecific gaseous small bowel loops and colon which could be due to mild ileus. Electronically Signed: Edis Dhaliwal MD at 14:38 EDT Tel , Service support , Chest X-Ray 09/19/17 06:04 IMPRESSION: Hypoventilatory exam. Worsening bilateral infiltrates or edema. Electronically Signed: Siddharth Benavides MD at 11:19 EDT , Service support , Medical Necessity - Tobacco Use Smoking Status: Never smoker Tobacco Use: Non-smoker Assessment/Plan All Active Problems (Last Reviewed 09/16/17 @ 17:51 by Torey James DO) Severe sepsis (Acute) Aspiration pneumonia (Acute) H/O eye surgery (Resolved) Aspiration pneumonia (Acute) Sepsis (Acute) Edema (Acute) Tachycardia (Acute) Difficult intravenous access (Acute) Sepsis (Acute) C. difficile colitis (Resolved) RECOMMENDATIONS: 1. Transition from IV Zosyn to Augmentin to complete a 10 day treatment course. 2. Wean supplemental oxygen to maintain saturations at or above 90% 3. The patient can follow-up with our nurse practitioner in the pulmonary medicine clinic 2 weeks following his discharge from the hospital. IMPRESSIONS: 1. Severe sepsis secondary to probable aspiration pneumonia Patient with emesis on presentation to the hospital. Chest x-ray was read as worsening, but I believe that it is grossly unchanged. Very difficult to interpret given low lung volumes. Patient is not reporting productive cough and has not had any fevers. Recommend transitioning from Zosyn to Augmentin to complete a 10 day treatment course. The patient can follow-up with our nurse practitioner in the pulmonary medicine clinic around 2 weeks from the time of his discharge. 2. Chronic respiratory insufficiency secondary to recurrent aspiration pneumonia Chest x-ray was personally reviewed and shows a slight haziness over the both lung pisano. Echocardiogram and CT scan of the chest in the past did show a dilated IVC did show enlarged pulmonary arteries. Patient may require supplemental oxygen transiently after discharge. 3. History of C. difficile colitis status post colostomy/history of upper GI bleed Patient is currently being fed with increased osmolarity tube feeds. This is likely the etiology of patient's loose stools. Likely okay to hold patient's baseline bowel regimen if this develops. 4. Cerebral palsy/history of seizure disorder/multiple previous admissions Complicates care, management, recovery and prognosis. Continue home medications as indicated. This note was generated with [employer] software. It may contain incorrect words, spelling, and punctuation that were not noted in checking the note before signing. Code Visit Inpatient E&M: 98011 Subs Hosp L2
--- NOTE | 2017-09-20 10:45 | CASEMGMT ---
RE GUADALUPE NOTE: called to [facility]. DC Instructions faxed to Aleksandra Villarreal RN @ [phone]. Notified of dc today. -RN ANAYELI spoke with pt's mother. No needs identified @ this time. Father will provide transportation home. Ishan LEVINN RN ACM
--- NOTE | 2017-09-20 11:43 | PCM.DC ---
- Discharge Diagnoses Current Active Problems: Current Active and Chronic Problems (Last Reviewed 09/16/17 @ 17:51 by Torey James DO) Severe sepsis (Acute) Aspiration pneumonia (Acute) You will use the following diet at home:: Other - tube feedings as directed Discharge Activity: Return to Normal Activity Additional Instructions: EUGENIO wraps, or other compression to BL legs daily, elevate legs as tolerated. Per cement loader: Rec continue current tf - would flush with 120 cc every 4 hours to provide ~ 1440 nery / 61 gm pr / 1431 cc free water/day. rate is currently 40 cc/hr Pending Tests on Discharge: BMP in 5 days Allergies/Adverse Reactions: Allergies cisapride monohydrate [From Propulsid] Allergy (Verified 05/30/17 12:34) Rash codeine Adverse Reaction (Verified 05/30/17 12:34) hallucinations metronidazole [From Flagyl] Adverse Reaction (Verified 05/30/17 12:34) Rash morphine Adverse Reaction (Verified 05/30/17 12:34) Hallucinations dust Allergy (Uncoded 05/30/17 12:34) Other Medications to take at Discharge Simethicone 40MG/0.6ML [Mylicon] 40 mg GT TID 11/09/13 Baclofen 734.1 mcg INTRATH CONT 01/12/14 Lactobacillus Combination No.4 [Probiotic] 1 cap GT DAILY 01/12/14 Pantoprazole Sodium [Protonix] 20 ml GT BID 08/09/14 Senna/Docusate Sodium 20 ml GT PRN PRN 08/03/15 Ondansetron HCl [Zofran Solution] 5 ml GT TID PRN PRN 08/30/15 Polyethylene Glycol 3350 [Miralax] 17 gm GT DAILY 08/30/15 Magnesium Hydroxide [Milk Of Magnesia] 35 - 50 ml GT DAILY PRN PRN 12/20/15 Metoclopramide [Reglan Solution] 5 mg GT TID 12/20/15 Lactose-Reduced Food/Fiber [Jevity 1 Nery Liquid] 237 ml GT 4X/DAY 03/11/16 Lactulose [Chronulac] 20 gm GT DAILY 06/01/16 Phenobarbital 60 mg GT BID 02/19/17 furosemide 40 mg/5 mL (8 mg/mL) oral solution 20 mg PO QDAY #500 ml 09/09/17 Cetirizine HCl [Allergy Relief] 10 ml GT DAILY 09/16/17 Amox/Clav 400mg/5ml Susp [Augmentin Suspension 400mg/5ml] 800 mg GT BIDCM #110 ml 09/20/17 Furosemide Liquid [Lasix Liquid] 20 mg GT DAILY #60 ml 09/20/17 Potassium Chloride [K-Dur] 10 meq GT DAILY #14 tab 09/20/17 The following prescriptions were given: Amox/Clav 400mg/5ml Susp [Augmentin Suspension 400mg/5ml] 800 mg GT BIDCM #110 ml Furosemide Liquid [Lasix Liquid] 20 mg GT DAILY #60 ml Potassium Chloride [K-Dur] 10 meq GT DAILY #14 tab Primary Care Physician: Timmy Severino MD [Primary Care Provider] - Please follow up with your Primary Care Physician in: 1-2 weeks Test Results: Test results from this visit will be discussed in further detail at your follow-up appointment, if applicable. Please Follow Up With: Maury Waite MD When: As directed Proposed Discharge Date: 09/20/17
--- NOTE | 2017-09-20 11:47 | DCINST_ITS ---
- Discharge Diagnoses Current Active Problems: Current Active and Chronic Problems (Last Reviewed 09/16/17 @ 17:51 by Torey James DO) Severe sepsis (Acute) Aspiration pneumonia (Acute) You will use the following diet at home:: Other - tube feedings as directed Discharge Activity: Return to Normal Activity Additional Instructions: EUGENIO wraps, or other compression to BL legs daily, elevate legs as tolerated. Per display department manager: Rec continue current tf - would flush with 120 cc every 4 hours to provide ~ 1440 nery / 61 gm pr / 1431 cc free water/day. rate is currently 40 cc/hr Pending Tests on Discharge: BMP in 5 days Allergies/Adverse Reactions: Allergies cisapride monohydrate [From Propulsid] Allergy (Verified 05/30/17 12:34) Rash codeine Adverse Reaction (Verified 05/30/17 12:34) hallucinations metronidazole [From Flagyl] Adverse Reaction (Verified 05/30/17 12:34) Rash morphine Adverse Reaction (Verified 05/30/17 12:34) Hallucinations dust Allergy (Uncoded 05/30/17 12:34) Other Medications to take at Discharge Simethicone 40MG/0.6ML [Mylicon] 40 mg GT TID 11/09/13 Baclofen 734.1 mcg INTRATH CONT 01/12/14 Lactobacillus Combination No.4 [Probiotic] 1 cap GT DAILY 01/12/14 Pantoprazole Sodium [Protonix] 20 ml GT BID 08/09/14 Senna/Docusate Sodium 20 ml GT PRN PRN 08/03/15 Ondansetron HCl [Zofran Solution] 5 ml GT TID PRN PRN 08/30/15 Polyethylene Glycol 3350 [Miralax] 17 gm GT DAILY 08/30/15 Magnesium Hydroxide [Milk Of Magnesia] 35 - 50 ml GT DAILY PRN PRN 12/20/15 Metoclopramide [Reglan Solution] 5 mg GT TID 12/20/15 Lactose-Reduced Food/Fiber [Jevity 1 Nery Liquid] 237 ml GT 4X/DAY 03/11/16 Lactulose [Chronulac] 20 gm GT DAILY 06/01/16 Phenobarbital 60 mg GT BID 02/19/17 furosemide 40 mg/5 mL (8 mg/mL) oral solution 20 mg PO QDAY #500 ml 09/09/17 Cetirizine HCl [Allergy Relief] 10 ml GT DAILY 09/16/17 Amox/Clav 400mg/5ml Susp [Augmentin Suspension 400mg/5ml] 800 mg GT BIDCM #110 ml 09/20/17 Furosemide Liquid [Lasix Liquid] 20 mg GT DAILY #60 ml 09/20/17 Potassium Chloride [K-Dur] 10 meq GT DAILY #14 tab 09/20/17 The following prescriptions were given: Amox/Clav 400mg/5ml Susp [Augmentin Suspension 400mg/5ml] 800 mg GT BIDCM #110 ml Furosemide Liquid [Lasix Liquid] 20 mg GT DAILY #60 ml Potassium Chloride [K-Dur] 10 meq GT DAILY #14 tab Primary Care Physician: Timmy Severino MD [Primary Care Provider] - Please follow up with your Primary Care Physician in: 1-2 weeks Test Results: Test results from this visit will be discussed in further detail at your follow- up appointment, if applicable. Please Follow Up With: Maury Waite MD When: As directed Proposed Discharge Date: 09/20/17
--- NOTE | 2017-09-20 14:00 | PCM.DC.SUM ---
<Paul Jackson - Last Filed: 09/20/17 14:00> Discharge Date and Diagnosis Date of Admission: 09/16/17 Date of Discharge: 09/20/17 - Primary Discharge Diagnosis Acute severe sepsis 2/2 aspiration pna Severe debility 2/2 cerebral palsy Chronic hypoxic respiratory failure Hx Seizures Pancytopenia Hypokalemia Hypernatremia Dysphagia s/p peg tube s/p colostomy hx severe constipation - Secondary Discharge Diagnosis Chronic Problems (Last Reviewed 09/16/17 @ 17:51 by Torey James DO) Nonrheumatic mitral valve prolapse (Chronic) C. 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 recommend follow-up to resolution. RAD/Chest 1 View (Portable) IMPRESSION: Bilateral airspace disease unchanged RAD/Abdomen Single View IMPRESSION: Nonspecific gaseous small bowel loops and colon which could be due to mild ileus. RAD/Chest 1 View (Portable) IMPRESSION: Hypoventilatory exam. Worsening bilateral infiltrates or edema. Consultations: Pulmonology-Drs. Moreira and Bello Operations: None Procedures: None Summary of Care Provided: Physical exam on day of discharge: General: Resting comfortably NAD Psych: A/Ox3 normal affect HEENT: PEARRLA AT NC Neck: Supple NT CV: RRR no m/t/r/g/h Resp: CTA Abd: [id number] Soft NT no guarding or rigidity Ext: DP2+= no edema Skin: W/D normal turgor Lymph/Heme: No active bleeding or adenopathy Neuro: CN2-12 intact Hospital course: The patient is a 37 year old M who is completely dependent on his mothers multimedia instructional designer care 2/2 cerebral palsy, noncommunicative, also with hx of dysphagia with multiple episodes of aspiration pna, pancytopenia, peg tube feedings, colostomy, LE edema, chronic constipation, on baclofen pump, who presented to the ER with tachycardia, tachypnea, and increased spasticity. He had a cxr with BL pna and evidence of sepsis with tachypnea, tachycardia, and elevated lactic acid. He was admitted to the PCU for acute severe sepsis 2/2 aspiration pna and started on unasyn, transitioned to zosyn. Pulmonary medicine was consulted. He did require somewhat increased O2 levels - 2 lpm, he normally only uses O2 at night. We slowed down his tube feedings and had the english teacher manage his feedings. He did well with zosyn. Blood cultures were negative, urine culture was negative, Legionella antigen was negative. He developed slowing of his bowel with decreased output and some nausea, KUB demonstrated early ileus. He was restarted on his home constipation medications - miralax daily. He did well with this. His mentation improved as did his breathing. He did have some fluctuations in his electrolytes felt to be 2/2 his fluids and feeding adjustements. He was transitioned to GT augmentin to complete a total of 10 days of therapy. He will go back on his low dose lasix and potassium. He was discharged home in stable condition with home health care. 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 This patient was seen by Paul Jackson PA-C under the supervision of Doctor Alexandre. [] Discharge Diet: - - Resume PEG feedings, advance slowly, with free water flushes as directed Discharge Activity: Return to Normal Activity Home Medications: Medications to take at Discharge Simethicone 40MG/0.6ML [Mylicon] 40 mg GT TID 11/09/13 Baclofen 734.1 mcg INTRATH CONT 01/12/14 Lactobacillus Combination No.4 [Probiotic] 1 cap GT DAILY 01/12/14 Pantoprazole Sodium [Protonix] 20 ml GT BID 08/09/14 Senna/Docusate Sodium 20 ml GT PRN PRN 08/03/15 Ondansetron HCl [Zofran Solution] 5 ml GT TID PRN PRN 08/30/15 Polyethylene Glycol 3350 [Miralax] 17 gm GT DAILY 08/30/15 Magnesium Hydroxide [Milk Of Magnesia] 35 - 50 ml GT DAILY PRN PRN 12/20/15 Metoclopramide [Reglan Solution] 5 mg GT TID 12/20/15 Lactose-Reduced Food/Fiber [Jevity 1 [place] Liquid] 237 ml GT 4X/DAY 03/11/16 Lactulose [Chronulac] 20 gm GT DAILY 06/01/16 Phenobarbital 60 mg GT BID 02/19/17 furosemide 40 mg/5 mL (8 mg/mL) oral solution 20 mg PO QDAY #500 ml 09/09/17 Cetirizine HCl [Allergy Relief] 10 ml GT DAILY 09/16/17 Amox/Clav 400mg/5ml Susp [Augmentin Suspension 400mg/5ml] 800 mg GT BIDCM #110 ml 09/20/17 Furosemide Liquid [Lasix Liquid] 20 mg GT DAILY #60 ml 09/20/17 Potassium Chloride [K-Dur] 10 meq GT DAILY #14 tab 09/20/17 Following Prescrptions Were Given to Patient: Amox/Clav 400mg/5ml Susp [Augmentin Suspension 400mg/5ml] 800 mg GT BIDCM #110 ml Furosemide Liquid [Lasix Liquid] 20 mg GT DAILY #60 ml Potassium Chloride [K-Dur] 10 meq GT DAILY #14 tab Primary Care Physician: Timmy Severino MD [Primary Care Provider] - Please follow up with your Primary Care Physician in: 1-2 weeks Please Follow Up With: Timmy Lara NP-C When: As directed Please Follow Up With: Timmy Severino MD When: 1-2 weeks Please Follow Up With: Yovanny Moreira DO When: 2 weeks Please Follow Up With: Maury Waite MD When: As directed Disposition: Home with Home Health Minutes spent on discharge:: 35 Patient Condition:: Stable Medical Necessity - Tobacco Use Smoking Status: Never smoker Tobacco Use: Non-smoker Meaningful Use Info Meaningful Use Diagnoses (Choose all that apply): None applicable <BettieCindy Sharpe - Last Filed: 09/20/17 14:49> Discharge Date and Diagnosis - Secondary Discharge Diagnosis Chronic Problems (Last Reviewed 09/16/17 @ 17:51 by Torey James DO) Nonrheumatic mitral valve prolapse (Chronic) C. 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 The patient is a 37 year old M with a history of cerebral palsy, dysphagia and multiple episodes of aspiration pneumonia, status post PEG tube in place and with colostomy and on chronic baclofen pump. He was admitted by the ED with a complaint of tachycardia, tachypnea and increased spasticity. Chest x-ray indicated bilateral pneumonia and evidence of sepsis with tachypnea, tachycardia and elevated lactic acid. He was admitted and managed for acute sepsis secondary to aspiration pneumonia was initially started on IV Unasyn and subsequently transitioned to IV Zosyn. Pulmonary medicine was consulted. Blood cultures came back negative and urine cultures were also negative. Legionella was also negative. Patient remained stable and was discharged home on 09/20 2017 on p.o. Augmentin for 10 days. 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 Mother to give free water flushes via the PEG tube frequently as he had mild hypernatremia at time of discharge-149; he is also to resume his low dose lasix which will help with the mild hypernatremia. Patient seen and examined prior to discharge. o/e: Vital Signs Height 5 ft Weight: 179 lb 14.355 oz Weight in Pounds 179.9 lbs Pulse Ox 2 Temperature 98.5 F Pulse Rate 80 Respiratory Rate 18 Blood Pressure [BP] 114/69 Blood Pressure 130/83 Blood Pressure Position [BP] Semi-Fowlers Blood Pressure Position Semi-Fowlers General: Alert, Cooperative, - - aphasic HEENT: Atraumatic, PERRLA, EOMI, Normocephalic, - - Oral: Dry Mucosa - from mouth breathing or opening mouth Neck: Supple, No JVD, Negative Carotid Bruits Lungs: Clear to auscultation - anteriorly, Normal air movement, Diminished - at the lung bases Cardiovascular: Regular rate, Regular Rhythm, Normal S1, Normal S2, No murmurs Abdomen: Bowel Sounds Present, Soft, Non Tender, Non-Distended, No Hepato-splenomegaly, Obese, - - Colostomy bag, baclofen pump to Left upper quadrant Extremities: Edema - Bilateral, pitting, nontender, up to the thigh. Skin: No rashes Musculoskeletal: No Tenderness to Palpation of Joints or Extremities, - - Contractures of the joints especially wrists and feet Neurological: - - Alert, aphasic, drooling, history of cerebral palsy Psych/Mental Status: flat affect I agree with Paul Jackson PA-C's note and assessment and plan. Plan as documented above. []
--- NOTE | 2017-09-20 14:22 | DS.PCM_ITS ---
<Paul Jackson - Last Filed: 09/20/17 14:00> Discharge Date and Diagnosis Date of Admission: 09/16/17 Date of Discharge: 09/20/17 - Primary Discharge Diagnosis Acute severe sepsis 2/2 aspiration pna Severe debility 2/2 cerebral palsy Chronic hypoxic respiratory failure Hx Seizures Pancytopenia Hypokalemia Hypernatremia Dysphagia s/p peg tube s/p colostomy hx severe constipation - Secondary Discharge Diagnosis Chronic Problems (Last Reviewed 09/16/17 @ 17:51 by Torey James DO) Nonrheumatic mitral valve prolapse (Chronic) C. 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 recommend follow-up to resolution. RAD/Chest 1 View (Portable) IMPRESSION: Bilateral airspace disease unchanged RAD/Abdomen Single View IMPRESSION: Nonspecific gaseous small bowel loops and colon which could be due to mild ileus. RAD/Chest 1 View (Portable) IMPRESSION: Hypoventilatory exam. Worsening bilateral infiltrates or edema. Consultations: Pulmonology-Drs. Moreira and Bello Operations: None Procedures: None Summary of Care Provided: Physical exam on day of discharge: General: Resting comfortably NAD Psych: A/Ox3 normal affect HEENT: PEARRLA AT NC Neck: Supple NT CV: RRR no m/t/r/g/h Resp: CTA Abd: [id number] Soft NT no guarding or rigidity Ext: DP2+= no edema Skin: W/D normal turgor Lymph/Heme: No active bleeding or adenopathy Neuro: CN2-12 intact Hospital course: The patient is a 37 year old M who is completely dependent on his mothers straight cutter care 2/2 cerebral palsy, noncommunicative, also with hx of dysphagia with multiple episodes of aspiration pna, pancytopenia, peg tube feedings, colostomy , LE edema, chronic constipation, on baclofen pump, who presented to the ER with tachycardia, tachypnea, and increased spasticity. He had a cxr with BL pna and evidence of sepsis with tachypnea, tachycardia, and elevated lactic acid. He was admitted to the PCU for acute severe sepsis 2/2 aspiration pna and started on unasyn, transitioned to zosyn. Pulmonary medicine was consulted. He did require somewhat increased O2 levels - 2 lpm, he normally only uses O2 at night. We slowed down his tube feedings and had the enterprise sales person manage his feedings. He did well with zosyn. Blood cultures were negative, urine culture was negative, Legionella antigen was negative. He developed slowing of his bowel with decreased output and some nausea, KUB demonstrated early ileus. He was restarted on his home constipation medications - miralax daily. He did well with this. His mentation improved as did his breathing. He did have some fluctuations in his electrolytes felt to be 2/2 his fluids and feeding adjustements. He was transitioned to GT augmentin to complete a total of 10 days of therapy. He will go back on his low dose lasix and potassium. He was discharged home in stable condition with home health care. He will need to follow-up with his director of property management, biology specimen technician, and his PCP in 1-2 weeks. This patient was seen by Paul Jackson PA-C under the supervision of Doctor Alexandre. [] Discharge Diet: - - Resume PEG feedings, advance slowly, with free water flushes as directed Discharge Activity: Return to Normal Activity Home Medications: Medications to take at Discharge Simethicone 40MG/0.6ML [Mylicon] 40 mg GT TID 11/09/13 Baclofen 734.1 mcg INTRATH CONT 01/12/14 Lactobacillus Combination No.4 [Probiotic] 1 cap GT DAILY 01/12/14 Pantoprazole Sodium [Protonix] 20 ml GT BID 08/09/14 Senna/Docusate Sodium 20 ml GT PRN PRN 08/03/15 Ondansetron HCl [Zofran Solution] 5 ml GT TID PRN PRN 08/30/15 Polyethylene Glycol 3350 [Miralax] 17 gm GT DAILY 08/30/15 Magnesium Hydroxide [Milk Of Magnesia] 35 - 50 ml GT DAILY PRN PRN 12/20/15 Metoclopramide [Reglan Solution] 5 mg GT TID 12/20/15 Lactose-Reduced Food/Fiber [[place] 1 [place] Liquid] 237 ml GT 4X/DAY 03/11/16 Lactulose [Chronulac] 20 gm GT DAILY 06/01/16 Phenobarbital 60 mg GT BID 02/19/17 furosemide 40 mg/5 mL (8 mg/mL) oral solution 20 mg PO QDAY #500 ml 09/09/17 Cetirizine HCl [Allergy Relief] 10 ml GT DAILY 09/16/17 Amox/Clav 400mg/5ml Susp [Augmentin Suspension 400mg/5ml] 800 mg GT BIDCM #110 ml 09/20/17 Furosemide Liquid [Lasix Liquid] 20 mg GT DAILY #60 ml 09/20/17 Potassium Chloride [K-Dur] 10 meq GT DAILY #14 tab 09/20/17 Following Prescrptions Were Given to Patient: Amox/Clav 400mg/5ml Susp [Augmentin Suspension 400mg/5ml] 800 mg GT BIDCM #110 ml Furosemide Liquid [Lasix Liquid] 20 mg GT DAILY #60 ml Potassium Chloride [K-Dur] 10 meq GT DAILY #14 tab Primary Care Physician: Timmy Severino MD [Primary Care Provider] - Please follow up with your Primary Care Physician in: 1-2 weeks Please Follow Up With: Timmy Lara NP-C When: As directed Please Follow Up With: Timmy Severino MD When: 1-2 weeks Please Follow Up With: Yovanny Moreira DO When: 2 weeks Please Follow Up With: Maury Waite MD When: As directed Disposition: Home with Home Health Minutes spent on discharge:: 35 Patient Condition:: Stable Medical Necessity - Tobacco Use Smoking Status: Never smoker Tobacco Use: Non-smoker Meaningful Use Info Meaningful Use Diagnoses (Choose all that apply): None applicable <BettieCindy Sharpe - Last Filed: 09/20/17 14:49> Discharge Date and Diagnosis - Secondary Discharge Diagnosis Chronic Problems (Last Reviewed 09/16/17 @ 17:51 by Torey James DO) Nonrheumatic mitral valve prolapse (Chronic) C. 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 The patient is a 37 year old M with a history of cerebral palsy, dysphagia and multiple episodes of aspiration pneumonia, status post PEG tube in place and with colostomy and on chronic baclofen pump. He was admitted by the ED with a complaint of tachycardia, tachypnea and increased spasticity. Chest x-ray indicated bilateral pneumonia and evidence of sepsis with tachypnea, tachycardia and elevated lactic acid. He was admitted and managed for acute sepsis secondary to aspiration pneumonia was initially started on IV Unasyn and subsequently transitioned to IV Zosyn. Pulmonary medicine was consulted. Blood cultures came back negative and urine cultures were also negative. Legionella was also negative. Patient remained stable and was discharged home on 09/20 2017 on p.o. Augmentin for 10 days. He is to follow-up with his director of property management and biology specimen technician as well as primary care doctor. Mother to give free water flushes via the PEG tube frequently as he had mild hypernatremia at time of discharge-149; he is also to resume his low dose lasix which will help with the mild hypernatremia. Patient seen and examined prior to discharge. o/e: Vital Signs Height 5 ft Weight: 179 lb 14.355 oz Weight in Pounds 179.9 lbs Pulse Ox 2 Temperature 98.5 F Pulse Rate 80 Respiratory Rate 18 Blood Pressure [BP] 114/69 Blood Pressure 130/83 Blood Pressure Position [BP] Semi-Fowlers Blood Pressure Position Semi-Fowlers General: Alert, Cooperative, - - aphasic HEENT: Atraumatic, PERRLA, EOMI, Normocephalic, - - Oral: Dry Mucosa - from mouth breathing or opening mouth Neck: Supple, No JVD, Negative Carotid Bruits Lungs: Clear to auscultation - anteriorly, Normal air movement, Diminished - at the lung bases Cardiovascular: Regular rate, Regular Rhythm, Normal S1, Normal S2, No murmurs Abdomen: Bowel Sounds Present, Soft, Non Tender, Non-Distended, No Hepato- splenomegaly, Obese, - - Colostomy bag, baclofen pump to Left upper quadrant Extremities: Edema - Bilateral, pitting, nontender, up to the thigh. Skin: No rashes Musculoskeletal: No Tenderness to Palpation of Joints or Extremities, - - Contractures of the joints especially wrists and feet Neurological: - - Alert, aphasic, drooling, history of cerebral palsy Psych/Mental Status: flat affect I agree with Paul Jackson PA-C's note and assessment and plan. Plan as documented above. []
--- NOTE | 2017-09-21 15:17 | CASEMGMT ---
RE CM DC PHONE CALL. Deferred. RNCM spoke with pt's mother prior to dc. She stated she has everything she needs and if anything arises on dc, she will contact Home Health Nurse or physician. Ishan BAL RN ACM
== END 2017-09-20 13:24 | disposition home health service (06) | DRG 871 ==
LOC: ED 15:56 → PCU 18:05 → ICU 20:14 → PCU 09-17 16:30
PROVIDERS: Hospitalist; Internal Medicine; Physician Assistant; Emergency Provider Emergency Medicine; Family Provider Family Medicine; PCP Family Medicine; Visit Provider Student in an Organized Health Care Education/Training Program
DX: A41.9 Sepsis, unspecified organism (principal); J69.0 Pneumonitis due to inhalation of food and vomit; G80.0 Spastic quadriplegic cerebral palsy; J96.11 Chronic respiratory failure with hypoxia; E87.0 Hyperosmolality and hypernatremia; D61.818 Other pancytopenia; F72 Severe intellectual disabilities; Q43.8 Other specified congenital malformations of intestine; R65.20 Severe sepsis without septic shock; Z93.3 Colostomy status; Z93.1 Gastrostomy status; E87.6 Hypokalemia; G40.909 Epilepsy, unspecified, not intractable, without status epilepticus
CPT/HCPCS: 36415; 36591; 71045; 71046; 74018; 80048; 80202; 81002; 82803; 83605; 83735; 84100; 85025; 87040; 87086; 87449; 87641; 94640; 94667; 94668; 97802; 97803; 99282; J7030; J7040; J7050; A4216; J0295

== ENCOUNTER → 2017-09-24 12:19 | Outpatient (CLI) | payer BC, MEDICAID, SELFPAY ==
[2017-09-24 13:13] LABS: Anion Gap 3 (5-15); BUN 17 mg/dL (7-18); BUN/Creat Ratio 24.4 RATIO (10-20); Calcium,Total 8.5 mg/dL (8.5-10.1); Chloride 105 mmol/L (98-107); EST Glomerular Filtration Rate 137 mL/min (>60); Est Glom Filt Rate - Afr Amer 166 mL/min (>60); Glucose 116 mg/dL (74-106); Potassium 3.5 mmol/L (3.5-5.1); Sodium Level 143 mmol/L (136-145)
== END ==
PROVIDERS: Family Provider Family Medicine; PCP Family Medicine; Visit Provider Physician Assistant
DX: E87.6 Hypokalemia (principal)
CPT/HCPCS: 80048

== ENCOUNTER → 2017-09-29 17:17 | Outpatient (CLI) | payer BC, MEDICAID, SELFPAY | PROVIDERS: Visit Provider Family Medicine | DX: R19.7 Diarrhea, unspecified (principal) | CPT/HCPCS: 87493; 87506 ==

== ENCOUNTER → 2017-10-21 11:07 | Outpatient (CLI) | payer BC, MEDICAID, SELFPAY ==
[2017-10-21 12:04] LABS: Absolute Lymphocyte Count 1.57 X10^3/ul (0.83-4.51); Absolute Neutrophil Count 1.8 X10^3/uL (2.0-7.7); Basophil# 0.01 X10^3/uL; Basophil% 0.2 % (0-1); Eosinophil# 0.25 X10^3/uL; Eosinophils% 6.2 % (0-5); Hematocrit 36.8 % (40-54); Lymphocyte # 1.57 X10^3/ul (4.0); Lymphocyte % 38.9 % (19-41); Mean Corp Hgb Conc 32.6 g/gl (32-36); Mean Corpuscular Hgb 29.9 pg (27.0-32.0); Mean Corpuscular Volume 91.8 fL (80-94); Mean Platelet Vol. 11.3 fl (6.2-12.0); Monocyte# 0.46 X10^3/uL; Monocyte% 11.4 % (0-10); Neutrophil # 1.75 X10^3/uL (2.7-7.7); Neutrophil % 43.3 % (47-70); Platelet Count 104 K/mm3 (150-450); RBC Distribution Width CV 14.5 % (11.6-14.6); RBC Distribution Width SD 47.7 fl (35.1-43.9); Red Blood Count 4.01 M/mm3 (4.6-6.2)
[2017-10-21 12:07] LABS: POSITIVE COUNT NO; POSITIVE DIFFERENTIAL NO; POSITIVE MORPHOLOGY NO
[2017-10-21 12:35] LABS: Anion Gap 9 (5-15); BUN 25 mg/dL (7-18); BUN/Creat Ratio 60.7 RATIO (10-20); Calcium,Total 8.8 mg/dL (8.5-10.1); Chloride 101 mmol/L (98-107); Creatinine, Serum 0.41 mg/dL (0.70-1.30); EST Glomerular Filtration Rate 250 mL/min (>60); Est Glom Filt Rate - Afr Amer 303 mL/min (>60); Glucose 91 mg/dL (74-106); Potassium 4.5 mmol/L (3.5-5.1); Sodium Level 140 mmol/L (136-145)
== END ==
PROVIDERS: Family Provider Family Medicine; PCP Family Medicine; Visit Provider Internal Medicine Cardiovascular Disease
DX: G80.9 Cerebral palsy, unspecified (principal); Z79.899 Other long term (current) drug therapy
CPT/HCPCS: 80048; 85025

== ENCOUNTER → 2017-11-18 12:20 | Outpatient (CLI) | payer BC, MEDICAID, SELFPAY ==
[2017-11-18 12:56] LABS: Anion Gap 4 (5-15); BUN 22 mg/dL (7-18); BUN/Creat Ratio 59.3 RATIO (10-20); Calcium,Total 9.1 mg/dL (8.5-10.1); Chloride 103 mmol/L (98-107); Creatinine, Serum 0.37 mg/dL (0.70-1.30); EST Glomerular Filtration Rate 283 mL/min (>60); Est Glom Filt Rate - Afr Amer 342 mL/min (>60); Glucose 80 mg/dL (74-106); Potassium 4.6 mmol/L (3.5-5.1); Sodium Level 139 mmol/L (136-145)
== END ==
PROVIDERS: Referring Provider Internal Medicine Cardiovascular Disease; Visit Provider Internal Medicine Cardiovascular Disease
DX: R60.9 Edema, unspecified (principal); G80.9 Cerebral palsy, unspecified; Z79.899 Other long term (current) drug therapy
CPT/HCPCS: 80048

== ENCOUNTER → 2017-12-16 11:26 | Outpatient (CLI) | payer BC, MEDICAID, SELFPAY ==
[2017-12-16 11:31] LABS: Absolute Lymphocyte Count 1.84 X10^3/ul (0.83-4.51); Absolute Neutrophil Count 1.2 X10^3/uL (2.0-7.7); Eosinophil# 0.11 X10^3/uL; Hematocrit 34.1 % (40-54); Hemoglobin 10.7 g/dl (13.0-16.5); Lymphocyte # 1.84 X10^3/ul (4.0); Mean Corp Hgb Conc 31.4 g/gl (32-36); Mean Corpuscular Hgb 29.1 pg (27.0-32.0); Mean Corpuscular Volume 92.7 fL (80-94); Mean Platelet Vol. 11.2 fl (6.2-12.0); Monocyte# 0.48 X10^3/uL; Monocyte% 13.3 % (0-10); Neutrophil # 1.18 X10^3/uL (2.7-7.7); Neutrophil % 32.7 % (47-70); Platelet Count 118 K/mm3 (150-450); RBC Distribution Width CV 15.8 % (11.6-14.6); RBC Distribution Width SD 53.1 fl (35.1-43.9); Red Blood Count 3.68 M/mm3 (4.6-6.2); White Blood Count 3.6 K/mm3 (4.4-11.0)
[2017-12-16 11:32] LABS: POSITIVE COUNT NO; POSITIVE DIFFERENTIAL NO; POSITIVE MORPHOLOGY NO
[2017-12-16 11:54] LABS: Anion Gap 2 (5-15); BUN 23 mg/dL (7-18); BUN/Creat Ratio 73.2 RATIO (10-20); Calcium,Total 8.7 mg/dL (8.5-10.1); Chloride 103 mmol/L (98-107); Creatinine, Serum 0.31 mg/dL (0.70-1.30); EST Glomerular Filtration Rate 342 mL/min (>60); Est Glom Filt Rate - Afr Amer 414 mL/min (>60); Glucose 72 mg/dL (74-106); Potassium 4.3 mmol/L (3.5-5.1); Sodium Level 138 mmol/L (136-145)
== END ==
PROVIDERS: Referring Provider Family Medicine; Visit Provider Family Medicine
DX: G80.9 Cerebral palsy, unspecified (principal); Z87.01 Personal history of pneumonia (recurrent); E87.0 Hyperosmolality and hypernatremia
CPT/HCPCS: 80048; 85025

== ENCOUNTER → 2018-01-12 11:20 | Outpatient (CLI) | payer BC, MEDICAID, SELFPAY ==
[2017-10-05 13:43] VITALS: BMI 33.0
[2018-01-12 13:16] LABS: Absolute Lymphocyte Count 1.72 X10^3/ul (0.83-4.51); Eosinophil# 0.14 X10^3/uL; Eosinophils% 3.3 % (0-5); Hematocrit 35.7 % (40-54); Hemoglobin 11.1 g/dl (13.0-16.5); Lymphocyte # 1.72 X10^3/ul (4.0); Lymphocyte % 40.7 % (19-41); Mean Corp Hgb Conc 31.1 g/gl (32-36); Mean Corpuscular Volume 93.2 fL (80-94); Mean Platelet Vol. 11.7 fl (6.2-12.0); Monocyte# 0.41 X10^3/uL; Monocyte% 9.7 % (0-10); Neutrophil # 1.96 X10^3/uL (2.7-7.7); Neutrophil % 46.3 % (47-70); Platelet Count 115 K/mm3 (150-450); RBC Distribution Width CV 15.4 % (11.6-14.6); RBC Distribution Width SD 52.1 fl (35.1-43.9); Red Blood Count 3.83 M/mm3 (4.6-6.2); White Blood Count 4.2 K/mm3 (4.4-11.0)
[2018-01-12 13:23] LABS: POSITIVE COUNT NO; POSITIVE DIFFERENTIAL NO; POSITIVE MORPHOLOGY NO
[2018-01-12 13:26] LABS: Anion Gap 4 (5-15); BUN 23 mg/dL (7-18); BUN/Creat Ratio 65.9 RATIO (10-20); Calcium,Total 8.8 mg/dL (8.5-10.1); Chloride 103 mmol/L (98-107); Creatinine, Serum 0.35 mg/dL (0.70-1.30); EST Glomerular Filtration Rate 303 mL/min (>60); Est Glom Filt Rate - Afr Amer 367 mL/min (>60); Glucose 68 mg/dL (74-106); Potassium 4.2 mmol/L (3.5-5.1); Sodium Level 139 mmol/L (136-145)
== END ==
PROVIDERS: Referring Provider Internal Medicine Cardiovascular Disease; Visit Provider Internal Medicine Cardiovascular Disease
DX: G80.9 Cerebral palsy, unspecified (principal); Z87.01 Personal history of pneumonia (recurrent); Z79.899 Other long term (current) drug therapy
CPT/HCPCS: 80048; 85025

== ENCOUNTER 2018-02-04 13:43 | Inpatient (IN) | payer BC, MEDICAID, SELFPAY ==
[2018-02-04] VITALS (11 sets, daily range): BP systolic 112–124; BP diastolic 62–100; PULSE 73–142; RESP 17–32; TEMP 36.4–38.3; O2SAT 88–95; BMI 28.6; BMI 33.5
--- NOTE | 2018-02-04 14:06 | RAD_ITS ---
STUDY: X-RAY CHEST REASON FOR EXAM: Male, 38 years old. Baclofen pump malfunctioning [place] TECHNIQUE: Single AP portable view of the chest. COMPARISON: September 19, 2017 chest x-ray FINDINGS: Study is nearly nondiagnostic. The lungs are underexpanded there are bilateral perihilar ground glass opacities. There is tubing or possible Port-A-Cath overlying the right mid chest. RAD/Chest 1 View (Portable) IMPRESSION: Nearly nondiagnostic study. Bilateral pulmonary infiltrates consider atelectasis and/or edema. Electronically Signed: Jaylin Servin MD at 15:03 EST Tel , Service support ,
--- NOTE | 2018-02-04 14:06 | EKG12_ITS ---
Test Reason : FEVER Blood Pressure : / mmHG Vent. Rate : 120 BPM Atrial Rate : 120 BPM P-R Int : 146 ms QRS Dur : 090 ms QT Int : 316 ms P-R-T Axes : 058 -12 071 degrees QTc Int : 446 ms Sinus tachycardia Low voltage QRS Cannot rule out Anterior infarct , age undetermined Abnormal ECG Confirmed by PATEL VARGAS, RACHELLE ([id number]), book or script editor MICHELLE PERKINS ([id number]) on 02/07/2018 7:45:42 AM Referred By: BRUCE Confirmed By:RACHELLE SWEENEY MD
--- NOTE | 2018-02-04 14:59 | ED.RN ---
PORT ACCESSED. UNABLE TO GET BLOOD RETURN. UPON FURTHER EVALUATION PORT WILL BE DE ACCESSED AND RE ATTEMPTED.
[2018-02-04 15:34] LABS: Absolute Lymphocyte Count 1.31 X10^3/ul (0.83-4.51); Absolute Neutrophil Count 5.2 X10^3/uL (2.0-7.7); Basophil# 0.01 X10^3/uL; Basophil% 0.1 % (0-1); Eosinophil# 0.09 X10^3/uL; Eosinophils% 1.2 % (0-5); Hemoglobin 11.9 g/dl (13.0-16.5); Lymphocyte # 1.31 X10^3/ul (4.0); Lymphocyte % 17.7 % (19-41); Mean Corp Hgb Conc 32.2 g/gl (32-36); Mean Corpuscular Hgb 29.2 pg (27.0-32.0); Mean Corpuscular Volume 90.7 fL (80-94); Mean Platelet Vol. 9.4 fl (6.2-12.0); Monocyte# 0.79 X10^3/uL; Monocyte% 10.6 % (0-10); Neutrophil # 5.21 X10^3/uL (2.7-7.7); Neutrophil % 70.3 % (47-70); Platelet Count 206 K/mm3 (150-450); RBC Distribution Width CV 15.4 % (11.6-14.6); RBC Distribution Width SD 50.7 fl (35.1-43.9); Red Blood Count 4.08 M/mm3 (4.6-6.2); White Blood Count 7.4 K/mm3 (4.4-11.0)
[2018-02-04 15:40] LABS: POSITIVE COUNT NO; POSITIVE DIFFERENTIAL NO; POSITIVE MORPHOLOGY NO
[2018-02-04 15:48] LABS: ALB/GLOB Ratio 0.6 RATIO (0.9-2.4); AST(SGOT) 40 U/L (15-37); Alanine Aminotransfer ALT/SGPT 56 U/L (16-61); Albumin, Serum 3.4 g/dL (3.2-5.0); Alkaline Phosphatase 239 U/L (45-117); Anion Gap 7 (5-15); BUN 24 mg/dL (7-18); BUN/Creat Ratio 42.1 RATIO (10-20); Calcium,Total 8.6 mg/dL (8.5-10.1); Chloride 103 mmol/L (98-107); Creatinine, Serum 0.57 mg/dL (0.70-1.30); EST Glomerular Filtration Rate 172 mL/min (>60); Est Glom Filt Rate - Afr Amer 208 mL/min (>60); Estimated Creatinine Clearance 155.85 ml/min; Globulin 5.6 g/dL (2.2-4.2); Glucose 101 mg/dL (74-106); International Normalized Ratio 1.1; Potassium 4.2 mmol/L (3.5-5.1); Prothrombin Time (Protime)PT. 14.5 SECONDS (11.7-14.9); Sodium Level 139 mmol/L (136-145)
[2018-02-04 15:49] LABS: Partial Thromboplast Time 33.8 Seconds (24.1-36.2)
[2018-02-04 15:53] LABS: Lactic Acid 1.8 mmol/L (0.4-2.0)
--- NOTE | 2018-02-04 16:33 | ED.DCSUM_ITS ---
- ER Visit Summary Date of Service: 02/04/18 Chief Complaint: Fever, increased spasticity History of Present Illness: The patient is a 38 M who presents with the above symptoms. Patient has a history of cerebral palsy and lives with family. They know that he has had a fever and increased spasticity. They believe that his baclofen pump is not working. It is due to be replaced this winter. They did start oral baclofen last night. His temperature has been elevated. He has not had a cough. He does have a history of aspiration pneumonia as well Physical Examination: Vital signs reviewed. Temperature 101, heart rate 117. Well-developed male in his normal state of health according to family. HEENT exam reveals no acute findings. His heart is tachycardic and regular rhythm without murmurs. Lungs are clear to auscultation bilaterally. Abdomen soft and nondistended. Skin exam reveals no rashes. His neurologic exam is at baseline. However, he does have increased spasticity of his lower legs. Test Results: EKG is normal sinus rhythm with a rate of 120. Nonspecific ST and T wave changes noted. White blood cell count 7.4, hemoglobin 11.9. Creatinine 0.57. Alkaline phosphatase 239. Lactate 1.8 Emergency Department Course and Treatment: Patient was given Ativan to help with his spasticity. Chest x-ray does reveal bilateral infiltrates. He will be started on Rocephin and azithromycin. I spoke with his neurologist at the [facility]. He recommended oral baclofen if needed. This was relayed to the hospitalist. Treatment Plan: [] Disposition: Admit Impression: Sepsis, community-acquired pneumonia This note was generated with [employer] dictation software. It may contain incorrect words, spelling, and punctuation that were not noted in review of the chart prior to signing ED Disposition - Plan for ED Patient: Chief Complaint: Fever Referrals: Timmy Severino MD [Primary Care Provider] -
[2018-02-04] MEDS: Ceftriaxone 1 GM/50 ML BAG IV (17:00)
[2018-02-04] MEDS: 0.9% Normal Saline 1,000 ML 999 ML IV (17:00)
--- NOTE | 2018-02-04 17:00 | PCM.HP.STD ---
<Paul Jackson - Last Filed: 02/04/18 17:00> Problem List (1) Sepsis Status: Acute (2) Pneumonia Status: Acute (3) Acute respiratory failure with hypoxia Status: Acute (4) Cerebral palsy Status: Chronic Comment: Quadriplegic Severe mental retardation Chronic constipation PEG tube (5) History of seizure disorder Status: Chronic (6) Colostomy in place Status: Chronic History of Present Illness Date of Admission: 02/04/18 Chief Complaint: fever The patient is a 38 year old M with pmhx of aspiration pna, cerebral palsy, seizure, colostomy, baclofen pump present, who presents to the ER with c/o fever at home. His family noticed that he seemed to be more spastic, checked his vitals and found him to have a fever, tachycardia, and noted he was hypoxic. He may have had some increased coughing yesterday. He was brought to the ER and CXR showed BL pna. He was hypoxic on 4lpm O2 at 88%. He appears septic with tachycardia, tachypnea, fever, BL pna on cxr. He was given rocephin and azithro in the ER. He is nonverbal, only grunting during interview. Family asked us to provide oral baclofen as well as his baclofen pump is reportedly not working - this has happened before - nursing noted that the baclofen level is not declining in the reservoir. He is scheduled to see the surgeon that installed it next week at [facility]. He has chronic LE edema - family states this is not worse than normal. He has not been in the hospital since . [] Past Medical History Past Medical History (Chronic Problems): Chronic Problems (Last Reviewed 09/16/17 @ 17:51 by Torey James DO) Nonrheumatic mitral valve prolapse (Chronic) C. 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) Edema (Chronic) Medical History: Medical History (Last Reviewed 09/16/17 @ 17:51 by Torey James DO) Nonrheumatic mitral valve prolapse (Chronic) I34.1 Cerebral palsy (Chronic) G80.9 Quadriplegic Severe mental retardation Chronic constipation PEG tube Allergies cisapride monohydrate [From Propulsid] Allergy (Verified 12/14/18 13:47) Rash codeine Adverse Reaction (Verified 02/04/18 13:47) hallucinations metronidazole [From Flagyl] Adverse Reaction (Verified 02/04/18 13:47) Rash morphine Adverse Reaction (Verified 02/04/18 13:47) Hallucinations dust Allergy (Uncoded 02/04/18 13:47) Other Home Medications: Ambulatory Orders Medication Instructions Recorded Simethicone 40MG/0.6ML [Mylicon] 40 mg GT TID 11/09/13 Baclofen 660 mcg INTRATH CONT 01/12/14 Pantoprazole Sodium [Protonix] 20 ml GT BID 08/09/14 Senna/Docusate Sodium 5 ml GT PRN PRN 08/03/15 Polyethylene Glycol 3350 [Miralax] 17 gm GT DAILY 08/30/15 Magnesium Hydroxide [Milk Of 35 - 50 ml GT DAILY PRN PRN 12/20/15 Magnesia] Metoclopramide [Reglan Solution] 5 mg GT TID 12/20/15 Lactulose [Chronulac] 30 ml GT DAILY 06/01/16 Phenobarbital 60 mg GT BID 02/19/17 furosemide 10 mg/mL oral solution 20 mg PO DAILY ml 11/09/17 Baclofen [Lioresal] 20 mg PO TID 02/04/18 Cetirizine HCl [Zyrtec] 10 mg PO DAILY 02/04/18 Jevity 1.5 1,000 ml PO 4X/DAY 02/04/18 Lactobacillus Acidophilus 1 cap PO DAILY 02/04/18 [Acidophilus] Potassium Chl Soln 15 ml GT DAILY 02/04/18 Surgical History: Surgical History (Last Updated 10/05/17 @ 13:56 by Livia Mahoney) H/O eye surgery (Resolved) Z98.890 Heel cord lengthening bilaterally History of colostomy History of gastrostomy tube placement History of open reduction and internal fixation (ORIF) procedure Z98.890 left hip History of soft tissue release Bilateral hips and knees Status post insertion of intrathecal baclofen pump Z96.89 Surgical History: - - Insertion of a baclofen pump which has been replaced twice since then. PEG tube insertion. Left colostomy Psychiatric History: No pertinent psych hx Lives: With Family Smoking Status: Never smoker Alcohol: None Drugs: None - *Family History Maternal Family History: Family History (Last Updated 10/05/17 @ 13:57 by Livia Mahoney) Mother Hypertension Hepatitis C Father Hypertension Atrial fibrillation CAD (coronary artery disease) History Items: No pertinent history, - - None significant Paternal Family History: Family History (Last Updated 10/05/17 @ 13:57 by Livia Mahoney) Mother Hypertension Hepatitis C Father Hypertension Atrial fibrillation CAD (coronary artery disease) History Items: No pertinent history Review of Systems Constitutional: Reports: Fever. Denies: Weight Change Respiratory: Denies: Shortness of breath at rest, Sputum production Gastrointestinal: Denies: Nausea, Vomiting Unable to obtain accurate/complete ROS d/t: pt nonverbal. VTE Information - Inpt Only VTE Present on Admission: No VTE Mechan Device Prophylaxis: None Patient Problems: Active and Suspected Problems (Last Reviewed 09/16/17 @ 17:51 by Torey James DO) Pneumonia (Acute) Acute respiratory failure with hypoxia (Acute) - Physical Exam Vital Signs Temp Pulse Resp BP Pulse Ox 99.7 F H 103 H 17 124/87 H 94 02/04/18 15:02 02/04/18 16:41 02/04/18 16:41 02/04/18 16:41 02/04/18 16:41 Oxygen Flow Rate (L/min) 2 Oxygen Delivery Method Nasal Cannula Weight: 172 lb Body Mass Index (BMI) 28.6 Laboratory Tests Past 24 Hrs 02/04/18 02/04/18 02/04/18 15:20 15:20 15:20 WBC 7.4 RBC 4.08 L Hgb 11.9 L Hct 37.0 L MCV 90.7 MCH 29.2 MCHC 32.2 RDW 15.4 H RDW Differential 50.7 H Plt Count 206 MPV 9.4 Immature Gran % (Auto) 0.100 Neut % (Auto) 70.3 H Lymph % (Auto) 17.7 L Hendricks % (Auto) 10.6 H Eos % (Auto) 1.2 Baso % (Auto) 0.1 Absolute Neuts (auto) 5.2 Absolute Lymphs (auto) 1.31 Total Counted Not Reportable PT 14.5 INR 1.1 APTT 33.8 Sodium 139 Potassium 4.2 Chloride 103 Carbon Dioxide 29.0 Anion Gap 7 BUN 24 H Creatinine 0.57 L Estim Creat Clear Calc 155.85 Est GFR (MDRD) Af Amer 208 Est GFR (MDRD) Non-Af 172 BUN/Creatinine Ratio 42.1 H Glucose 101 Lactic Acid Calcium 8.6 Total Bilirubin 0.20 AST 40 H ALT 56 Alkaline Phosphatase 239 H Total Protein 9.0 H Albumin 3.4 Globulin 5.6 H Albumin/Globulin Ratio 0.6 L 02/04/18 15:20 WBC RBC Hgb Hct MCV MCH MCHC RDW RDW Differential Plt Count MPV Immature Gran % (Auto) Neut % (Auto) Lymph % (Auto) Hendricks % (Auto) Eos % (Auto) Baso % (Auto) Absolute Neuts (auto) Absolute Lymphs (auto) Total Counted PT INR APTT Sodium Potassium Chloride Carbon Dioxide Anion Gap BUN Creatinine Estim Creat Clear Calc Est GFR (MDRD) Af Amer Est GFR (MDRD) Non-Af BUN/Creatinine Ratio Glucose Lactic Acid 1.8 Calcium Total Bilirubin AST ALT Alkaline Phosphatase Total Protein Albumin Globulin Albumin/Globulin Ratio Assessment/Plan All Active Problems (Last Reviewed 09/16/17 @ 17:51 by Torey James DO) Pneumonia (Acute) Acute respiratory failure with hypoxia (Acute) Severe sepsis (Acute) Aspiration pneumonia (Acute) H/O eye surgery (Resolved) Aspiration pneumonia (Acute) Sepsis (Acute) Tachycardia (Acute) Difficult intravenous access (Acute) C. difficile colitis (Resolved) 1. Acute hypoxic respiratory failure and acute sepsis 2/2 BL pna - CAP vs Aspiration - Start unasyn, continue rocephin. Check blood cx, sputum cx, urine antigens. Provide aerosols and mucinex. Multiple episodes of aspiration in past. G tube in place. He has been seen by Drs. Monsalve/Harish in the past. Sepsis demonstrated by fever/tachycardic/tachypneic, negative lactate. 2. Cerebral palsy - has colostomy, which is ripped and need changed - consult wound nurse. Also has implanted abdominal/spinal baclofen pump that is not working. Will provide PO baclofen at families request, they have noted increased spasticity. G tube is in place. Continue. 3. Mild normocytic anemia - stable. 4. Chronic LE edema - continue socorro wraps. DVT ppx: lovenox DC planning: Parents are wastewater treatment engineer caregivers. This patient was seen by Paul Jackson PA-C under the supervision of Doctor Hannah. <Barry Young - Last Filed: 02/04/18 19:10> History of Present Illness The patient is a 38 year old M [] Past Medical History Medical History: Medical History (Last Reviewed 09/16/17 @ 17:51 by Torey James DO) Nonrheumatic mitral valve prolapse (Chronic) I34.1 Cerebral palsy (Chronic) G80.9 Quadriplegic Severe mental retardation Chronic constipation PEG tube Allergies cisapride monohydrate [From Propulsid] Allergy (Verified 02/04/18 13:47) Rash codeine Adverse Reaction (Verified 02/04/18 13:47) hallucinations metronidazole [From Flagyl] Adverse Reaction (Verified 02/04/18 13:47) Rash morphine Adverse Reaction (Verified 02/04/18 13:47) Hallucinations dust Allergy (Uncoded 02/04/18 13:47) Other Surgical History: Surgical History (Last Updated 10/05/17 @ 13:56 by Livia Mahoney) H/O eye surgery (Resolved) Z98.890 Heel cord lengthening bilaterally History of colostomy History of gastrostomy tube placement History of open reduction and internal fixation (ORIF) procedure Z98.890 left hip History of soft tissue release Bilateral hips and knees Status post insertion of intrathecal baclofen pump Z96.89 - *Family History Maternal Family History: Family History (Last Updated 10/05/17 @ 13:57 by Livia Mahoney) Mother Hypertension Hepatitis C Father Hypertension Atrial fibrillation CAD (coronary artery disease) Paternal Family History: Family History (Last Updated 10/05/17 @ 13:57 by Livia Mahoney) Mother Hypertension Hepatitis C Father Hypertension Atrial fibrillation CAD (coronary artery disease) - Physical Exam Vital Signs Temp Pulse Resp BP Pulse Ox 97.5 F L 91 20 H 112/62 95 02/04/18 18:13 02/04/18 18:13 02/04/18 18:40 02/04/18 18:13 02/04/18 18:13 Oxygen Flow Rate (L/min) 5 Oxygen Delivery Method Nasal Cannula Weight: 171 lb 11.841 oz Body Mass Index (BMI) 33.5 Laboratory Tests Past 24 Hrs 02/04/18 02/04/18 02/04/18 15:20 15:20 15:20 WBC 7.4 RBC 4.08 L Hgb 11.9 L Hct 37.0 L MCV 90.7 MCH 29.2 MCHC 32.2 RDW 15.4 H RDW Differential 50.7 H Plt Count 206 MPV 9.4 Immature Gran % (Auto) 0.100 Neut % (Auto) 70.3 H Lymph % (Auto) 17.7 L Hendricks % (Auto) 10.6 H Eos % (Auto) 1.2 Baso % (Auto) 0.1 Absolute Neuts (auto) 5.2 Absolute Lymphs (auto) 1.31 Total Counted Not Reportable PT 14.5 INR 1.1 APTT 33.8 Sodium 139 Potassium 4.2 Chloride 103 Carbon Dioxide 29.0 Anion Gap 7 BUN 24 H Creatinine 0.57 L Estim Creat Clear Calc 155.85 Est GFR (MDRD) Af Amer 208 Est GFR (MDRD) Non-Af 172 BUN/Creatinine Ratio 42.1 H Glucose 101 Lactic Acid Calcium 8.6 Total Bilirubin 0.20 AST 40 H ALT 56 Alkaline Phosphatase 239 H Total Protein 9.0 H Albumin 3.4 Globulin 5.6 H Albumin/Globulin Ratio 0.6 L Urine Color Urine Clarity Urine pH Ur Specific [place] Urine Protein Urine Glucose (UA) Urine Ketones Urine Occult Blood Urine Nitrite Urine Bilirubin Urine Urobilinogen Ur Leukocyte Esterase Urine RBC Urine WBC Ur Squamous Epith Cells Urine Bacteria Hyaline Casts Urine Mucus 02/04/18 02/04/18 15:20 17:25 WBC RBC Hgb Hct MCV MCH MCHC RDW RDW Differential Plt Count MPV Immature Gran % (Auto) Neut % (Auto) Lymph % (Auto) Hendricks % (Auto) Eos % (Auto) Baso % (Auto) Absolute Neuts (auto) Absolute Lymphs (auto) Total Counted PT INR APTT Sodium Potassium Chloride Carbon Dioxide Anion Gap BUN Creatinine Estim Creat Clear Calc Est GFR (MDRD) Af Amer Est GFR (MDRD) Non-Af BUN/Creatinine Ratio Glucose Lactic Acid 1.8 Calcium Total Bilirubin AST ALT Alkaline Phosphatase Total Protein Albumin Globulin Albumin/Globulin Ratio Urine Color Yellow Urine Clarity Clear Urine pH 6.5 Ur Specific [place] 1.010 Urine Protein 30 H Urine Glucose (UA) Normal Urine Ketones 5 H Urine Occult Blood Negative Urine Nitrite Negative Urine Bilirubin Negative Urine Urobilinogen Normal Ur Leukocyte Esterase 25 H Urine RBC 0 SEEN Urine WBC 0-5 SEEN Ur Squamous Epith Cells 0-5 SEEN Urine Bacteria 1+ Hyaline Casts 0-5 SEEN Urine Mucus 2+ Code Visit Addendum: Dr. Young I personally examined the patient and reviewed the chart. I agree with the above. 38-year-old male with a past history of cerebral palsy, spasticity, edema, constipation who presents from home with hypoxia and tachycardia. She is fully dependent on his parents at home and he is nonverbal, receives medications through G-tube, and per the parents he was looking flushed and his heart rate at one point was in the 140s at home and he was below 90% on his oxygen saturation at home as well as they brought him to the ER. In the ER he had a chest x-ray which was concerning for possible bilateral pneumonia though this is difficult because his lungs are underexpanded given his condition. Will start on community-acquired antibiotics with Unasyn and azithromycin as well as IV fluids. Blood cultures and urine cultures are pending. There is also some concern that his baclofen pump has not been working because a couple of weeks ago when the nurse was out there she drained the pump and usually they get a 4.8 mL's of residual medication, however this time it was over 10 mL's. So we will plan on reinitiating baclofen per his G-tube. Inpatient E&M: [id number] [facility] L3
[2018-02-04 17:27] LABS: Red Blood Cells-Urine 0 SEEN /hpf (0-5)
[2018-02-04 18:08] LABS: Color, Urine Yellow (Yellow); Glucose, Dipstick Normal (Normal); Ketone-Dipstick 5 mg/dl (Negative); Leukocyte Esterase-Dipstick 25 /ul (Negative); Nitrite-Dipstick Negative (Negative); Occult Blood-Urine Negative /ul (Negative); Protein-Dipstick 30 mg/dl (Negative); Urine Bilirubin Dipstick Negative (Negative); Urine Clarity Clear (Clear); Urine Urobilinogen Normal (Normal); Urine pH 6.5 (5.0 - 8.0)
[2018-02-04 18:25] LABS: Bacteria 1+ /hpf (None Seen); Hyaline Cast 0-5 SEEN /lpf (0-5); Mucous, Urine 2+ /hpf (<or=2+); Squamous Epithelial Cells - UA 0-5 SEEN /hpf (0-5); White Blood Cells 0-5 SEEN /hpf (0-5)
[2018-02-04] MEDS: 0.9% Normal Saline 1,000 ML 150 ML IV (18:31)
[2018-02-04] MEDS: Jevity 1.5 1,000 ML 45 ML GT (21:46)
[2018-02-04] MEDS: Baclofen 10 MG Tablet 20 MG GT (21:47)
[2018-02-04] MEDS: Simethicone 40MG/0.6ML Bottle 40 MG GT (21:47)
[2018-02-04] MEDS: Famotidine 20 MG Tablet GT (21:48)
[2018-02-04] MEDS: Metoclopramide 10 MG/10 ML UDC 5 MG GT (21:49)
[2018-02-04] MEDS: Phenobarbital 20 MG/5 ML UDC 60 MG GT (22:03)
[2018-02-04] MEDS: Ondansetron 4 MG/2 ML Vial IV (22:48)
[2018-02-05] VITALS (14 sets, daily range): BP systolic 85–120; BP diastolic 43–75; PULSE 57–80; RESP 13–18; TEMP 36.2–36.6; O2SAT 90–97
[2018-02-05] MEDS: 0.9% Normal Saline 1,000 ML 150 ML IV ×2 (03:10→12:17)
[2018-02-05] MEDS: 0.9% NaCl Peripheral Flush Adult/Peds IV ×3 (05:20→10:36)
[2018-02-05 05:39] LABS: Absolute Lymphocyte Count 1.46 X10^3/ul (0.83-4.51); Absolute Neutrophil Count 1.9 X10^3/uL (2.0-7.7); Basophil# 0.01 X10^3/uL; Basophil% 0.3 % (0-1); Eosinophils% 2.6 % (0-5); Hematocrit 30.3 % (40-54); Hemoglobin 9.6 g/dl (13.0-16.5); Lymphocyte # 1.46 X10^3/ul (4.0); Lymphocyte % 37.9 % (19-41); Mean Corp Hgb Conc 31.7 g/gl (32-36); Mean Corpuscular Hgb 29.6 pg (27.0-32.0); Mean Corpuscular Volume 93.5 fL (80-94); Mean Platelet Vol. 9.6 fl (6.2-12.0); Monocyte# 0.43 X10^3/uL; Monocyte% 11.2 % (0-10); Neutrophil # 1.85 X10^3/uL (2.7-7.7); Platelet Count 151 K/mm3 (150-450); RBC Distribution Width CV 15.3 % (11.6-14.6); RBC Distribution Width SD 50.4 fl (35.1-43.9); Red Blood Count 3.24 M/mm3 (4.6-6.2); White Blood Count 3.9 K/mm3 (4.4-11.0)
[2018-02-05] MEDS: Metoclopramide 10 MG/10 ML UDC 5 MG GT ×3 (05:41→22:43)
[2018-02-05] MEDS: Baclofen 10 MG Tablet 20 MG GT (05:41)
[2018-02-05] MEDS: Simethicone 40MG/0.6ML Bottle 40 MG GT ×3 (05:41→22:43)
[2018-02-05 05:43] LABS: POSITIVE COUNT NO; POSITIVE DIFFERENTIAL NO; POSITIVE MORPHOLOGY NO
[2018-02-05 05:52] LABS: Anion Gap 3 (5-15); BUN 16 mg/dL (7-18); BUN/Creat Ratio 51.4 RATIO (10-20); Calcium,Total 7.5 mg/dL (8.5-10.1); Chloride 110 mmol/L (98-107); Creatinine, Serum 0.31 mg/dL (0.70-1.30); EST Glomerular Filtration Rate 346 mL/min (>60); Est Glom Filt Rate - Afr Amer 419 mL/min (>60); Estimated Creatinine Clearance 232.97 ml/min; Glucose 112 mg/dL (74-106); Potassium 3.3 mmol/L (3.5-5.1); Sodium Level 144 mmol/L (136-145)
[2018-02-05] MEDS: Enoxaparin 40 MG/0.4 ML Syringe SC (09:46)
[2018-02-05] MEDS: Phenobarbital 20 MG/5 ML UDC 60 MG GT ×2 (09:46→22:43)
[2018-02-05] MEDS: Lactulose 20 GM/30 ML UDC GT ×2 (09:46→17:35)
[2018-02-05] MEDS: Polyethylene Glycol 3350 17 GM PACKET GT (09:47)
[2018-02-05] MEDS: Loratadine 10 MG Tablet GT (09:47)
[2018-02-05] MEDS: Famotidine 20 MG Tablet GT ×2 (09:47→22:44)
[2018-02-05] MEDS: Ondansetron 4 MG/2 ML Vial IV (10:35)
--- NOTE | 2018-02-05 10:45 | RAD_ITS ---
STUDY: X-RAY - ABDOMEN/PELVIS REASON FOR EXAM: Male, 38 years old. Nausea and vomiting TECHNIQUE: Two AP supine views of the abdomen and pelvis. COMPARISON: September 18, 2017 abdomen study FINDINGS: Normal visualized lung bases. Mildly distended loops of small bowel and large bowel. There is a colostomy seen overlying the left lower abdomen. There is a baclofen pump with the catheter extending to the level of T11. This partially visualized central line with the tip in the superior vena cava. There is levoscoliosis. There is visualized hip dysplasia. RAD/Abdomen Single View (Portable) IMPRESSION: Findings are most consistent with ileus. Electronically Signed: Jaylin Servin MD at 15:07 EST Tel , Service support ,
--- NOTE | 2018-02-05 12:54 | CASEMGMT ---
SEE ATTACHED SOCIAL WORK ASSESSMENT FOR FULL DETAILS REGARDING SERVICES IN THE HOME. Met with Dale's mom, Matteo, who was at his bedside. Introduced self and SW role at [facility]. She states plan is for son to return home where 24 hour care and supervision are provided. She denies any additional needs at this time. They will transport him home per their wheelchair van. Contact information for agencies that are involved are listed in assessment. Sary LOU,RUIZA
--- NOTE | 2018-02-05 13:39 | PN_ITS ---
<Paul Jackson - Last Filed: 02/05/18 13:35> Patient Problems: Active and Suspected Problems (Last Reviewed 09/16/17 @ 17:51 by Torey James DO) Acute respiratory failure with hypoxia (Acute) Subjective: Family notes decreased spasticity/contractures. Pt vomited out his NG feeding today. BP was borderline. His O2 requirement did decrease sicne admission. Nonverbal. - Physical Exam General: Alert, Cooperative HEENT: Atraumatic, PERRLA, EOMI, Normocephalic Neck: Supple, No JVD, Negative Carotid Bruits Lungs: Diminished Cardiovascular: Regular rate, No murmurs Abdomen: Bowel Sounds Present, Soft, Non Tender Extremities: Edema - BL LE Skin: No rashes, No breakdown Musculoskeletal: No Tenderness to Palpation of Joints or Extremities Neurological: Cranial nerves II-XII grossly intact Vital Signs Temp Pulse Resp BP Pulse Ox 97.5 F L 73 16 93/71 95 02/05/18 11:47 02/05/18 12:11 02/05/18 11:47 02/05/18 11:47 02/05/18 11:47 Oxygen Flow Rate (L/min) 2 Oxygen Delivery Method Nasal Cannula Weight: 171 lb 11.841 oz Body Mass Index (BMI) 33.5 Intake and Output for Last 24 Hours 02/03/18 02/04/18 02/05/18 23:59 23:59 23:59 Intake Total 3837 / 3837 Balance 3837 / 3837 Microbiology Past 72 Hours 02/04/18 17:25 Urine Culture - Preliminary Urine, Catheterized Gram Positive Cocci 02/04/18 17:25 Streptococcus pneumoniae Antigen (M - Final Urine, Random 02/04/18 17:25 Legionella Antigen - Final Urine, Random Laboratory Tests Past 24 Hrs 02/04/18 02/04/18 02/04/18 15:20 15:20 15:20 WBC 7.4 RBC 4.08 L Hgb 11.9 L Hct 37.0 L MCV 90.7 MCH 29.2 MCHC 32.2 RDW 15.4 H RDW Differential 50.7 H Plt Count 206 MPV 9.4 Immature Gran % (Auto) 0.100 Neut % (Auto) 70.3 H Lymph % (Auto) 17.7 L [place] % (Auto) 10.6 H Eos % (Auto) 1.2 Baso % (Auto) 0.1 Absolute Neuts (auto) 5.2 Absolute Lymphs (auto) 1.31 Total Counted Not Reportable PT 14.5 INR 1.1 APTT 33.8 Sodium 139 Potassium 4.2 Chloride 103 Carbon Dioxide 29.0 Anion Gap 7 BUN 24 H Creatinine 0.57 L Estim Creat Clear Calc 155.85 Est GFR (MDRD) Af Amer 208 Est GFR (MDRD) Non-Af 172 BUN/Creatinine Ratio 42.1 H Glucose 101 Lactic Acid Calcium 8.6 Total Bilirubin 0.20 AST 40 H ALT 56 Alkaline Phosphatase 239 H Total Protein 9.0 H Albumin 3.4 Globulin 5.6 H Albumin/Globulin Ratio 0.6 L Urine Color Urine Clarity Urine pH Ur Specific [place] Urine Protein Urine Glucose (UA) Urine Ketones Urine Occult Blood Urine Nitrite Urine Bilirubin Urine Urobilinogen Ur Leukocyte Esterase Urine RBC Urine WBC Ur Squamous Epith Cells Urine Bacteria Hyaline Casts Urine Mucus 02/04/18 02/04/18 02/05/18 15:20 17:25 05:20 WBC RBC Hgb Hct MCV MCH MCHC RDW RDW Differential Plt Count MPV Immature Gran % (Auto) Neut % (Auto) Lymph % (Auto) [place] % (Auto) Eos % (Auto) Baso % (Auto) Absolute Neuts (auto) Absolute Lymphs (auto) Total Counted PT INR APTT Sodium 144 Potassium 3.3 L Chloride 110 H Carbon Dioxide 31.0 Anion Gap 3 L BUN 16 Creatinine 0.31 L Estim Creat Clear Calc 232.97 Est GFR (MDRD) Af Amer 419 Est GFR (MDRD) Non-Af 346 BUN/Creatinine Ratio 51.4 H Glucose 112 H Lactic Acid 1.8 Calcium 7.5 L Total Bilirubin AST ALT Alkaline Phosphatase Total Protein Albumin Globulin Albumin/Globulin Ratio Urine Color Yellow Urine Clarity Clear Urine pH 6.5 Ur Specific [place] 1.010 Urine Protein 30 H Urine Glucose (UA) Normal Urine Ketones 5 H Urine Occult Blood Negative Urine Nitrite Negative Urine Bilirubin Negative Urine Urobilinogen Normal Ur Leukocyte Esterase 25 H Urine RBC 0 SEEN Urine WBC 0-5 SEEN Ur Squamous Epith Cells 0-5 SEEN Urine Bacteria 1+ Hyaline Casts 0-5 SEEN Urine Mucus 2+ 02/05/18 05:20 WBC 3.9 L RBC 3.24 L Hgb 9.6 L Hct 30.3 L MCV 93.5 MCH 29.6 MCHC 31.7 L RDW 15.3 H RDW Differential 50.4 H Plt Count 151 MPV 9.6 Immature Gran % (Auto) 0.000 Neut % (Auto) 48.0 Lymph % (Auto) 37.9 [place] % (Auto) 11.2 H Eos % (Auto) 2.6 Baso % (Auto) 0.3 Absolute Neuts (auto) 1.9 L Absolute Lymphs (auto) 1.46 Total Counted Not Reportable PT INR APTT Sodium Potassium Chloride Carbon Dioxide Anion Gap BUN Creatinine Estim Creat Clear Calc Est GFR (MDRD) Af Amer Est GFR (MDRD) Non-Af BUN/Creatinine Ratio Glucose Lactic Acid Calcium Total Bilirubin AST ALT Alkaline Phosphatase Total Protein Albumin Globulin Albumin/Globulin Ratio Urine Color Urine Clarity Urine pH Ur Specific [place] Urine Protein Urine Glucose (UA) Urine Ketones Urine Occult Blood Urine Nitrite Urine Bilirubin Urine Urobilinogen Ur Leukocyte Esterase Urine RBC Urine WBC Ur Squamous Epith Cells Urine Bacteria Hyaline Casts Urine Mucus Medical Necessity - Tobacco Use Smoking Status: Never smoker Assessment/Plan All Active Problems (Last Reviewed 09/16/17 @ 17:51 by Torey James DO) Acute respiratory failure with hypoxia (Acute) Severe sepsis (Acute) C. difficile colitis (Resolved) 1. Acute hypoxic respiratory failure and acute sepsis 2/2 BL pna - CAP vs Aspiration - continue unasyn, azithro. Provide aerosols and mucinex. Multiple episodes of aspiration in past. G tube in place. He has been seen by Drs. Monsalve/Harish in the past. Sepsis demonstrated by fever/tachycardic/tachypneic, negative lactate. -Now with more vomiting, raising suspicion of further aspiration. -KUB pending -AM CXR PA/LAT -Urine antigens neg. -Resp panel pending -Urine cx with GPC however I am not sure of the clinical significance. -Blood cx pending. 2. Cerebral palsy - has colostomy - consult wound nurse. Also has implanted abdominal/spinal baclofen pump that is not working. Baclofen PO provided. Will Decrease dose 2/2 low BP. Hold afternoon dose. 3. Mild normocytic anemia - stable. 4. Chronic LE edema - continue socorro wraps. 5. Chronic constipation - KUB pending. Monitor ostomy output. DVT ppx: lovenox DC planning: Parents are full stack php developer caregivers. This patient was seen by Paul Jackson PA-C under the supervision of Doctor Kamilla <Gumaro Kohli E - Last Filed: 02/05/18 14:12> - Physical Exam Vital Signs Temp Pulse Resp BP Pulse Ox 97.5 F L 73 16 93/71 95 02/05/18 11:47 02/05/18 12:11 02/05/18 11:47 02/05/18 11:47 02/05/18 11:47 Oxygen Flow Rate (L/min) 2 Oxygen Delivery Method Nasal Cannula Weight: 171 lb 11.841 oz Body Mass Index (BMI) 33.5 Intake and Output for Last 24 Hours 02/03/18 02/04/18 02/05/18 23:59 23:59 23:59 Intake Total 3837 / 3837 Balance 3837 / 3837 Microbiology Past 72 Hours 02/04/18 17:25 Urine Culture - Preliminary Urine, Catheterized Gram Positive Cocci 02/04/18 17:25 Streptococcus pneumoniae Antigen (M - Final Urine, Random 02/04/18 17:25 Legionella Antigen - Final Urine, Random Laboratory Tests Past 24 Hrs 02/04/18 02/04/18 02/04/18 15:20 15:20 15:20 WBC 7.4 RBC 4.08 L Hgb 11.9 L Hct 37.0 L MCV 90.7 MCH 29.2 MCHC 32.2 RDW 15.4 H RDW Differential 50.7 H Plt Count 206 MPV 9.4 Immature Gran % (Auto) 0.100 Neut % (Auto) 70.3 H Lymph % (Auto) 17.7 L [place] % (Auto) 10.6 H Eos % (Auto) 1.2 Baso % (Auto) 0.1 Absolute Neuts (auto) 5.2 Absolute Lymphs (auto) 1.31 Total Counted Not Reportable PT 14.5 INR 1.1 APTT 33.8 Sodium 139 Potassium 4.2 Chloride 103 Carbon Dioxide 29.0 Anion Gap 7 BUN 24 H Creatinine 0.57 L Estim Creat Clear Calc 155.85 Est GFR (MDRD) Af Amer 208 Est GFR (MDRD) Non-Af 172 BUN/Creatinine Ratio 42.1 H Glucose 101 Lactic Acid Calcium 8.6 Total Bilirubin 0.20 AST 40 H ALT 56 Alkaline Phosphatase 239 H Total Protein 9.0 H Albumin 3.4 Globulin 5.6 H Albumin/Globulin Ratio 0.6 L Urine Color Urine Clarity Urine pH Ur Specific [place] Urine Protein Urine Glucose (UA) Urine Ketones Urine Occult Blood Urine Nitrite Urine Bilirubin Urine Urobilinogen Ur Leukocyte Esterase Urine RBC Urine WBC Ur Squamous Epith Cells Urine Bacteria Hyaline Casts Urine Mucus 02/04/18 02/04/18 02/05/18 15:20 17:25 05:20 WBC RBC Hgb Hct MCV MCH MCHC RDW RDW Differential Plt Count MPV Immature Gran % (Auto) Neut % (Auto) Lymph % (Auto) [place] % (Auto) Eos % (Auto) Baso % (Auto) Absolute Neuts (auto) Absolute Lymphs (auto) Total Counted PT INR APTT Sodium 144 Potassium 3.3 L Chloride 110 H Carbon Dioxide 31.0 Anion Gap 3 L BUN 16 Creatinine 0.31 L Estim Creat Clear Calc 232.97 Est GFR (MDRD) Af Amer 419 Est GFR (MDRD) Non-Af 346 BUN/Creatinine Ratio 51.4 H Glucose 112 H Lactic Acid 1.8 Calcium 7.5 L Total Bilirubin AST ALT Alkaline Phosphatase Total Protein Albumin Globulin Albumin/Globulin Ratio Urine Color Yellow Urine Clarity Clear Urine pH 6.5 Ur Specific [place] 1.010 Urine Protein 30 H Urine Glucose (UA) Normal Urine Ketones 5 H Urine Occult Blood Negative Urine Nitrite Negative Urine Bilirubin Negative Urine Urobilinogen Normal Ur Leukocyte Esterase 25 H Urine RBC 0 SEEN Urine WBC 0-5 SEEN Ur Squamous Epith Cells 0-5 SEEN Urine Bacteria 1+ Hyaline Casts 0-5 SEEN Urine Mucus 2+ 02/05/18 05:20 WBC 3.9 L RBC 3.24 L Hgb 9.6 L Hct 30.3 L MCV 93.5 MCH 29.6 MCHC 31.7 L RDW 15.3 H RDW Differential 50.4 H Plt Count 151 MPV 9.6 Immature Gran % (Auto) 0.000 Neut % (Auto) 48.0 Lymph % (Auto) 37.9 [place] % (Auto) 11.2 H Eos % (Auto) 2.6 Baso % (Auto) 0.3 Absolute Neuts (auto) 1.9 L Absolute Lymphs (auto) 1.46 Total Counted Not Reportable PT INR APTT Sodium Potassium Chloride Carbon Dioxide Anion Gap BUN Creatinine Estim Creat Clear Calc Est GFR (MDRD) Af Amer Est GFR (MDRD) Non-Af BUN/Creatinine Ratio Glucose Lactic Acid Calcium Total Bilirubin AST ALT Alkaline Phosphatase Total Protein Albumin Globulin Albumin/Globulin Ratio Urine Color Urine Clarity Urine pH Ur Specific [place] Urine Protein Urine Glucose (UA) Urine Ketones Urine Occult Blood Urine Nitrite Urine Bilirubin Urine Urobilinogen Ur Leukocyte Esterase Urine RBC Urine WBC Ur Squamous Epith Cells Urine Bacteria Hyaline Casts Urine Mucus Assessment/Plan Hospitalist note: I am seeing this patient in conjunction with Paul Jackson. I independently seen and examined the patient. Progress note above, laboratory data and imaging studies reviewed and I agree with above treatment plan. Patient seen and examined. When I was at the bedside, patient had large amount of emesis which is mainly tube feeds. He is nonverbal. His blood pressure is borderline. Other vital signs are stable. - Physical Exam General: Alert, Cooperative, nonverbal, distressed because of emesis. HEENT: Atraumatic, PERRLA, EOMI. Neck: Supple, No JVD, Negative Carotid Bruits, Trachea Midline, Thyroid Normal. Lungs: Decreased breath sounds bilateral, bilateral rhonchi, no wheeze, No rales. Cardiovascular: Regular rate, Regular Rhythm, Normal S1, Normal S2, PMI Normal. Abdomen: Bowel Sounds Present, Soft, Non Tender, Non-Distended, No Hepato- splenomegaly. Baclofen pump in place. Extremities: No clubbing, No cyanosis, bilateral edema Skin: No rashes, No breakdown Neurological: Cranial nerves are intact, neuro grossly intact Assessment and plan: #1 probable bilateral pneumonia: Community-acquired versus aspiration/sepsis: He is on IV Unasyn and Zithromax. Blood cultures pending. Pneumococcal and Legionella antigen were negative. Respiratory panel for viruses pending. Plan to potassium treatment, hold tube feeds for now because patient has been vomiting, x-ray abdomen, repeat chest x-ray tomorrow morning. #2 acute hypoxic respiratory failure: Secondary to probable pneumonia versus upper respiratory viral syndrome. Patient is on oxygen at this time. Plan to continue IV antibiotics, wean off oxygen as tolerated. #3 other chronic medical problems: Stable, continue current medications. This note was generated with [employer] software. It may contain incorrect words, spelling, and punctuation that were not noted in checking the note before signing. Code Visit Inpatient E&M: 31597 Subs Hosp L2
[2018-02-06] VITALS (12 sets, daily range): BP systolic 105–128; BP diastolic 65–73; PULSE 68–99; RESP 16–18; TEMP 36.3–37; O2SAT 94–97
[2018-02-06] MEDS: 0.9% Normal Saline 1,000 ML 60 ML IV (01:21)
[2018-02-06 05:46] LABS: Absolute Lymphocyte Count 1.04 X10^3/ul (0.83-4.51); Absolute Neutrophil Count 2.5 X10^3/uL (2.0-7.7); Basophil# 0.01 X10^3/uL; Basophil% 0.2 % (0-1); Eosinophil# 0.12 X10^3/uL; Eosinophils% 2.9 % (0-5); Hematocrit 33.4 % (40-54); Hemoglobin 10.4 g/dl (13.0-16.5); Lymphocyte # 1.04 X10^3/ul (4.0); Lymphocyte % 25.4 % (19-41); Mean Corp Hgb Conc 31.1 g/gl (32-36); Mean Corpuscular Hgb 29.8 pg (27.0-32.0); Mean Corpuscular Volume 95.7 fL (80-94); Mean Platelet Vol. 10.1 fl (6.2-12.0); Monocyte# 0.37 X10^3/uL; Neutrophil # 2.53 X10^3/uL (2.7-7.7); Neutrophil % 61.8 % (47-70); Platelet Count 157 K/mm3 (150-450); RBC Distribution Width CV 15.8 % (11.6-14.6); RBC Distribution Width SD 52.6 fl (35.1-43.9); Red Blood Count 3.49 M/mm3 (4.6-6.2); White Blood Count 4.1 K/mm3 (4.4-11.0)
[2018-02-06 05:48] LABS: POSITIVE COUNT NO; POSITIVE DIFFERENTIAL NO; POSITIVE MORPHOLOGY NO
--- NOTE | 2018-02-06 05:55 | RAD_ITS ---
STUDY: X-RAY CHEST REASON FOR EXAM: Male, 38 years old. Sepsis, pneumonia TECHNIQUE: PA and lateral views of the chest. COMPARISON: 02/04/2018 FINDINGS: Right chest port is stable. Lungs continue to be hypoinflated with diminished amount of perihilar opacities evident on the prior study. Persistent atelectasis in the lung bases. There is trace bilateral pleural effusions layering posteriorly. There is mild cardiac enlargement. Normal mediastinum and rachelle. Normal visualized pulmonary arteries. Normal visualized aortic arch and descending thoracic aorta. Normal visualized thoracic spine. Normal visualized ribs, clavicles, and shoulders. There is no demonstrated abnormality of the visualized soft tissue structures of the upper abdomen. RAD/Chest PA and Lateral IMPRESSION: 1. Favorable change with decreased pulmonary infiltrates. 2. Hypoinflation with persistent bibasilar atelectasis. Trace bilateral pleural effusions. Electronically Signed: John Chavez MD at 10:15 EST , Service support ,
[2018-02-06 05:57] LABS: Anion Gap 5 (5-15); BUN 10 mg/dL (7-18); BUN/Creat Ratio 41.7 RATIO (10-20); Chloride 112 mmol/L (98-107); Creatinine, Serum 0.24 mg/dL (0.70-1.30); EST Glomerular Filtration Rate 466 mL/min (>60); Est Glom Filt Rate - Afr Amer 564 mL/min (>60); Estimated Creatinine Clearance 300.93 ml/min; Glucose 81 mg/dL (74-106); Potassium 3.5 mmol/L (3.5-5.1); Sodium Level 146 mmol/L (136-145)
[2018-02-06] MEDS: Metoclopramide 10 MG/10 ML UDC 5 MG GT ×3 (06:52→21:44)
[2018-02-06] MEDS: 0.9% NaCl Peripheral Flush Adult/Peds IV ×2 (06:53→11:32)
[2018-02-06] MEDS: Simethicone 40MG/0.6ML Bottle 40 MG GT ×3 (06:53→21:46)
--- NOTE | 2018-02-06 08:29 | PCM.PROGNOTE ---
Patient Problems: Active and Suspected Problems (Last Reviewed 09/16/17 @ 17:51 by Torey James DO) Acute respiratory failure with hypoxia (Acute) Subjective: Chief complaint: Follow-up after admission for probable bilateral pneumonia with sepsis and acute hypoxic respiratory failure. Patient seen and examined. No acute events overnight. According to the patient's mother, patient looks better today, breathing easier, having the secretions. Patient is nonverbal. Tube feeds held since yesterday afternoon. He has been afebrile, vital signs are stable, pulse ox is 96% on 2 L. - Physical Exam General: Alert, Cooperative, No apparent distress, - - Nonverbal. HEENT: Atraumatic, PERRLA, EOMI, Normocephalic Oral: Moist Mucosa, No Gingival or Mucosal Lesions/ Ulcerations Neck: Supple, No JVD, Negative Carotid Bruits, Trachea Midline, Thyroid Normal Size and Texture Lungs: Clear to auscultation, No wheeze, No rales, Diminished, Rhonchi Cardiovascular: Regular rate, Regular Rhythm, Normal S1, Normal S2, PMI Normal Abdomen: Bowel Sounds Present, Non Tender, Non-Distended, No Hepato-splenomegaly, - - Baclofen pump in place. Extremities: No clubbing, No cyanosis, No edema Skin: No rashes, No breakdown Neurological: Cranial nerves II-XII grossly intact Psych/Mental Status: Flat Affect Vital Signs Temp Pulse Resp BP Pulse Ox 97.4 F L 83 18 128/73 H 95 02/06/18 06:49 02/06/18 07:17 02/06/18 06:49 02/06/18 06:49 02/06/18 07:07 Oxygen Flow Rate (L/min) 2 Oxygen Delivery Method Nasal Cannula Weight: 171 lb 11.841 oz Body Mass Index (BMI) 33.5 Intake and Output for Last 24 Hours 02/04/18 02/05/18 02/06/18 23:59 23:59 23:59 Intake Total 4650 / 4650 914 / 914 Balance 4650 / 4650 914 / 914 Microbiology Past 72 Hours 02/05/18 11:01 Respiratory Panel (PCR) - Final Mucosa - Nasopharyngeal 02/04/18 17:25 Urine Culture - Preliminary Urine, Catheterized Gram Positive Cocci 02/04/18 17:25 Streptococcus pneumoniae Antigen (M - Final Urine, Random 02/04/18 17:25 Legionella Antigen - Final Urine, Random Laboratory Tests Past 24 Hrs 02/06/18 02/06/18 05:20 05:20 WBC 4.1 L RBC 3.49 L Hgb 10.4 L Hct 33.4 L MCV 95.7 H MCH 29.8 MCHC 31.1 L RDW 15.8 H RDW Differential 52.6 H Plt Count 157 MPV 10.1 Immature Gran % (Auto) 0.700 Neut % (Auto) 61.8 Lymph % (Auto) 25.4 [place] % (Auto) 9.0 Eos % (Auto) 2.9 Baso % (Auto) 0.2 Absolute Neuts (auto) 2.5 Absolute Lymphs (auto) 1.04 Total Counted Not Reportable Sodium 146 H Potassium 3.5 Chloride 112 H Carbon Dioxide 29.0 Anion Gap 5 BUN 10 Creatinine 0.24 L Estim Creat Clear Calc 300.93 Est GFR (MDRD) Af Amer 564 Est GFR (MDRD) Non-Af 466 BUN/Creatinine Ratio 41.7 H Glucose 81 Calcium 8.0 L Medical Necessity - Tobacco Use Smoking Status: Never smoker Assessment/Plan All Active Problems (Last Reviewed 09/16/17 @ 17:51 by Torey James DO) Acute respiratory failure with hypoxia (Acute) Severe sepsis (Acute) C. difficile colitis (Resolved) This is a 38 years old male patient with history of cerebral palsy admitted because of fever and increased spasticity, found to have probable bilateral lung infiltrates and was treated as a case of community-acquired pneumonia complicated by acute hypoxic respiratory failure. #1 probable bilateral community acquired versus aspiration pneumonia/sepsis: He is on IV Unasyn and Zithromax. His vital signs are stable, afebrile, pulse ox is maintained on 2 L, pulse ox is 96%. Respiratory panel for viruses were negative. Pneumococcal and Legionella antigen was negative. Blood cultures pending. Urine culture revealed gram-positive cocci, final is pending. Plan to continue same treatment, resume tube feeds, DC IV fluids. #2 acute hypoxic respiratory failure: Secondary to above. Oxygenation requirement is decreasing, he is on 2 L and pulse ox is 96%. Plan as above. #3 cerebral palsy: He has a colostomy bag and implanted abdominal baclofen pump. He does have quadriplegia, he is bedridden. Plan for supportive treatment. #4 chronic anemia: At this normocytic anemia, baseline mammograms been around 10-11 g/dL. Today's hemoglobin is 10.4 g/dL, stable at baseline. #5 quadriplegia: Secondary to cerebral palsy, plan for PT OT evaluation and treatment. #6 seizure disorder: Continue phenobarbital. #7 DVT prophylaxis: Subcu Lovenox. This note was generated with [employer] dictation software. It may contain incorrect words, spelling, and punctuation that were not noted in checking the note before signing. Code Visit Inpatient E&M: 54034 Subs Hosp L2
[2018-02-06] MEDS: Polyethylene Glycol 3350 17 GM PACKET GT (10:21)
[2018-02-06] MEDS: Famotidine 20 MG Tablet GT ×2 (10:21→21:45)
[2018-02-06] MEDS: Enoxaparin 40 MG/0.4 ML Syringe SC (10:21)
[2018-02-06] MEDS: Furosemide 20 MG Tablet GT (10:22)
[2018-02-06] MEDS: Loratadine 10 MG Tablet GT (10:22)
[2018-02-06] MEDS: Lactulose 20 GM/30 ML UDC 30 GM GT ×2 (10:24→12:50)
[2018-02-06] MEDS: Phenobarbital 20 MG/5 ML UDC 60 MG GT ×3 (10:31→22:07)
[2018-02-06] MEDS: Ondansetron 4 MG/2 ML Vial IV ×2 (11:32→22:37)
[2018-02-07] VITALS (11 sets, daily range): BP systolic 113–135; BP diastolic 71–88; PULSE 73–97; RESP 16–18; TEMP 36.6–37.1; O2SAT 92–96
[2018-02-07] MEDS: Simethicone 40MG/0.6ML Bottle 40 MG GT ×3 (05:54→21:52)
[2018-02-07] MEDS: Metoclopramide 10 MG/10 ML UDC 5 MG GT ×3 (05:58→21:43)
[2018-02-07] MEDS: Ondansetron 4 MG/2 ML Vial IV (05:58)
[2018-02-07] MEDS: Lactulose 20 GM/30 ML UDC 30 GM GT (08:43)
[2018-02-07] MEDS: Enoxaparin 40 MG/0.4 ML Syringe SC (08:46)
[2018-02-07] MEDS: Loratadine 10 MG Tablet GT (08:46)
[2018-02-07] MEDS: Furosemide 20 MG Tablet GT (08:46)
[2018-02-07] MEDS: Phenobarbital 20 MG/5 ML UDC 60 MG GT ×2 (08:52→21:51)
[2018-02-07] MEDS: Polyethylene Glycol 3350 17 GM PACKET GT (09:00)
[2018-02-07] MEDS: Famotidine 20 MG Tablet GT ×2 (09:00→21:45)
[2018-02-07] MEDS: Jevity 1.5 1,000 ML 20 ML GT (11:45)
--- NOTE | 2018-02-07 13:20 | PCM.PROGNOTE ---
<Paul Jackson - Last Filed: 02/07/18 13:20> Patient Problems: Active and Suspected Problems (Last Reviewed 09/16/17 @ 17:51 by Torey James DO) Acute respiratory failure with hypoxia (Acute) Subjective: Pt breathing stable on 2 lpm - normal is O2 qhs at home. Per mother he has not been contracted without baclofen, agreeable to contuing to hold baclofen. Output is somewhat loose per mother. He does not seem to be in any pain. Again, he is nonverbal. - Physical Exam General: Alert, Oriented x3, Cooperative HEENT: Atraumatic, PERRLA, EOMI, Normocephalic Neck: Supple, No JVD, Negative Carotid Bruits Lungs: Clear to auscultation, Normal air movement Cardiovascular: Regular rate, No murmurs Abdomen: Bowel Sounds Present, Soft, Non Tender Extremities: No edema, Capillary Refill Less than 3 Seconds Skin: No rashes, No breakdown Musculoskeletal: No Tenderness to Palpation of Joints or Extremities Neurological: Cranial nerves II-XII grossly intact Psych/Mental Status: Normal Affect, Appropriate, Alert and oriented to time, place, person, mood and affect Vital Signs Temp Pulse Resp BP Pulse Ox 98.7 F 89 18 124/71 H 92 02/07/18 08:15 02/07/18 12:14 02/07/18 08:15 02/07/18 08:15 02/07/18 08:15 Oxygen Flow Rate (L/min) 2 Oxygen Delivery Method Nasal Cannula Weight: 171 lb 11.841 oz Body Mass Index (BMI) 33.5 Intake and Output for Last 24 Hours 02/05/18 02/06/18 02/07/18 23:59 23:59 23:59 Intake Total 4650 / 4650 1711 / 1711 177 / 177 Output Total 620 / 620 400 / 400 Balance 4650 / 4650 1091 / 1091 -223 / -223 Microbiology Past 72 Hours 02/04/18 17:25 Urine Culture - Preliminary Urine, Catheterized GPC Poss Enterococcus sp 02/04/18 16:45 Blood Culture - Preliminary Blood Culture (Wb) - Left Hand No growth in 48 hours. 02/04/18 15:20 Blood Culture - Preliminary Blood Culture (Wb) - Port No growth in 48 hours. 02/05/18 11:01 Respiratory Panel (PCR) - Final Mucosa - Nasopharyngeal 02/04/18 17:25 Streptococcus pneumoniae Antigen (M - Final Urine, Random 02/04/18 17:25 Legionella Antigen - Final Urine, Random Medical Necessity - Tobacco Use Smoking Status: Never smoker Assessment/Plan All Active Problems (Last Reviewed 09/16/17 @ 17:51 by Torey James DO) Acute respiratory failure with hypoxia (Acute) Severe sepsis (Acute) C. difficile colitis (Resolved) 1. Acute hypoxic respiratory failure and acute sepsis 2/2 BL pna - CAP vs Aspiration - continue unasyn, azithro. Provide aerosols and mucinex. Multiple episodes of aspiration in past. G tube in place. He has been seen by Drs. Monsalve/Harish in the past. Sepsis demonstrated by fever/tachycardic/tachypneic, negative lactate. -Respiratory status is stable -Restart tube feeds 20cc/hr reconsult test technician -Resp panel neg, blood culture neg, antigens neg -Small amount of enterococcus in urine sample -Afebrile, no leukocytosis -Some fluid on imaging, restart home lasix. 2. Cerebral palsy - has colostomy - consult wound nurse. Also has implanted abdominal/spinal baclofen pump that is not working. Baclofen held for hypotension. Restart tube feeds as above. 3. Mild normocytic anemia - stable. 4. Chronic LE edema - continue socorro wraps. Restart home lasix. 5. Chronic constipation - continue aggressive home bowel regimen. 6. Hx Seizures - continue phenobarb DVT ppx: lovenox DC planning: Parents are time study technologist caregivers. This patient was seen by Paul Jackson PA-C under the supervision of Doctor Cuauhtemoc <Michael Posadas - Last Filed: 02/07/18 15:31> - Physical Exam Vital Signs Temp Pulse Resp BP Pulse Ox 98.5 F 86 18 121/88 H 95 02/07/18 14:15 02/07/18 14:15 02/07/18 14:15 02/07/18 14:15 02/07/18 14:15 Oxygen Flow Rate (L/min) 2 Oxygen Delivery Method Nasal Cannula Weight: 77.9 kg Body Mass Index (BMI) 33.5 Intake and Output for Last 24 Hours 02/05/18 02/06/18 02/07/18 23:59 23:59 23:59 Intake Total 4650 / 4650 1711 / 1711 790 / 790 Output Total 620 / 620 500 / 500 Balance 4650 / 4650 1091 / 1091 290 / 290 Microbiology Past 72 Hours 02/04/18 17:25 Urine Culture - Preliminary Urine, Catheterized GPC Poss Enterococcus sp 02/04/18 16:45 Blood Culture - Preliminary Blood Culture (Wb) - Left Hand No growth in 48 hours. 02/04/18 15:20 Blood Culture - Preliminary Blood Culture (Wb) - Port No growth in 48 hours. 02/05/18 11:01 Respiratory Panel (PCR) - Final Mucosa - Nasopharyngeal 02/04/18 17:25 Streptococcus pneumoniae Antigen (M - Final Urine, Random 02/04/18 17:25 Legionella Antigen - Final Urine, Random Assessment/Plan This patient was seen in conjunction with Paul Jackson PA-C . I have independently interviewed and examined the patient and reviewed pertinent historical, laboratory, and other data. Please refer to Paul Jackson PA-C note for details of this patient's presentation, findings, and recommendations. I have reviewed Paul Jackson PA-C note and concur with documented findings. In brief, patient is a 38-year-old gentleman with history of cerebral palsy and subsequently any disability who presented with shortness of breath and assessment of acute hypoxic respiratory failure secondary to aspiration pneumonia with sepsis. Admitted to monitored bed where patient has since been managed Physical Examination: Assessment: 1. Hypoxic respiratory failure 2. Sepsis secondary to aspiration pneumonia 3. Cerebral palsy 4. Normocytic anemia 5. Baclofen pump on account of bilateral lower extremity spasms scheduled to be reviewed at [facility] 6. Chronic constipation 7. Seizure disorder Recommendations: 1. I have discussed the results of my overview and impressions with the patient 2. Options for management were reviewed Active Medications Enoxaparin Sodium (Lovenox) 40 mg SC DAILY@1000 [facility] Last Admin: 02/07/18 08:46 Dose: 40 mg Famotidine (Pepcid) 20 mg GT BID [facility] Last Admin: 02/07/18 09:00 Dose: 20 mg Furosemide (Lasix) 20 mg GT DAILY [facility] Ampicillin Sodium/Sulbactam (Sodium 3 gm/ Sodium Chloride) 112 mls @ 150 mls/hr IV Q8 [facility] Last Admin: 02/07/18 13:45 Dose: 150 mls/hr Azithromycin 500 mg/ Dextrose 255 mls @ 250 mls/hr IV Q24 [facility] Last Admin: 02/07/18 09:07 Dose: 250 mls/hr Lactobacillus Acidophilus (Acidophilus) 1 tablet GT DAILY [facility] Last Admin: 02/07/18 08:42 Dose: 1 tablet Lactulose (Chronulac, Cephulac) 30 gm GT DAILY [facility] Last Admin: 02/07/18 08:43 Dose: 30 gm Loratadine (Claritin) 10 mg GT DAILY [facility] Last Admin: 02/07/18 08:46 Dose: 10 mg Magnesium Hydroxide (Milk Of Magnesia) 30 ml PO DAILY PRN PRN Reason: Constipation Magnesium Hydroxide (Milk Of Magnesia) 35 - 50 ml GT DAILY PRN PRN PRN Reason: Constipation Metoclopramide HCl (Reglan) 5 mg GT TID [facility] Last Admin: 02/07/18 13:40 Dose: 5 mg Ondansetron HCl (Zofran) 4 mg IV Q6H PRN PRN PRN Reason: NAUSEA/VOMITING Last Admin: 02/07/18 05:58 Dose: 4 mg Phenobarbital (Phenobarbital) 60 mg GT BID [facility] Last Admin: 02/07/18 08:52 Dose: 60 mg Polyethylene Glycol (Miralax) 17 gm GT DAILY [facility] Last Admin: 02/07/18 09:00 Dose: 17 gm Potassium Bicarb/Potassium Chloride (Potassium Chl 25 Meq Eff (For Liquid)) [facility] Last Admin: 02/07/18 08:42 Dose: 25 meq Senna/Docusate Sodium (Senokot-S, Kim-Colace) 1 tablet GT PRN PRN PRN Reason: CONSTIPATION Simethicone (Mylicon) 40 mg GT TID [facility] Last Admin: 02/07/18 13:40 Dose: 40 mg Sodium Chloride () 5 - 15 ml IV UD PRN PRN Reason: SALINE FLUSH Last Admin: 02/06/18 11:32 Dose: 10 ml Clinical Impression(s) from Imaging Studies Chest X-Ray 02/04/18 14:06 IMPRESSION: Nearly nondiagnostic study. Bilateral pulmonary infiltrates consider atelectasis and/or edema. Electronically Signed: Jaylin Servin MD at 15:03 EST Tel , Service support , KUB X-Ray 02/05/18 10:45 IMPRESSION: Findings are most consistent with ileus. Electronically Signed: Jaylin Servin MD at 15:07 EST Tel , Service support , Chest X-Ray 02/06/18 05:55 IMPRESSION: 1. Favorable change with decreased pulmonary infiltrates. 2. Hypoinflation with persistent bibasilar atelectasis. Trace bilateral pleural effusions. Electronically Signed: John Chavez MD at 10:15 EST , Service support , Code Visit Inpatient E&M: 95240 Subs Hosp L3
--- NOTE | 2018-02-07 13:28 | PN_ITS ---
<Paul Jackson - Last Filed: 02/07/18 13:20> Patient Problems: Active and Suspected Problems (Last Reviewed 09/16/17 @ 17:51 by Torey James DO) Acute respiratory failure with hypoxia (Acute) Subjective: Pt breathing stable on 2 lpm - normal is O2 qhs at home. Per mother he has not been contracted without baclofen, agreeable to contuing to hold baclofen. Output is somewhat loose per mother. He does not seem to be in any pain. Again, he is nonverbal. - Physical Exam General: Alert, Oriented x3, Cooperative HEENT: Atraumatic, PERRLA, EOMI, Normocephalic Neck: Supple, No JVD, Negative Carotid Bruits Lungs: Clear to auscultation, Normal air movement Cardiovascular: Regular rate, No murmurs Abdomen: Bowel Sounds Present, Soft, Non Tender Extremities: No edema, Capillary Refill Less than 3 Seconds Skin: No rashes, No breakdown Musculoskeletal: No Tenderness to Palpation of Joints or Extremities Neurological: Cranial nerves II-XII grossly intact Psych/Mental Status: Normal Affect, Appropriate, Alert and oriented to time, place, person, mood and affect Vital Signs Temp Pulse Resp BP Pulse Ox 98.7 F 89 18 124/71 H 92 02/07/18 08:15 02/07/18 12:14 02/07/18 08:15 02/07/18 08:15 02/07/18 08:15 Oxygen Flow Rate (L/min) 2 Oxygen Delivery Method Nasal Cannula Weight: 171 lb 11.841 oz Body Mass Index (BMI) 33.5 Intake and Output for Last 24 Hours 02/05/18 02/06/18 02/07/18 23:59 23:59 23:59 Intake Total 4650 / 4650 1711 / 1711 177 / 177 Output Total 620 / 620 400 / 400 Balance 4650 / 4650 1091 / 1091 -223 / -223 Microbiology Past 72 Hours 02/04/18 17:25 Urine Culture - Preliminary Urine, Catheterized GPC Poss Enterococcus sp 02/04/18 16:45 Blood Culture - Preliminary Blood Culture (Wb) - Left Hand No growth in 48 hours. 02/04/18 15:20 Blood Culture - Preliminary Blood Culture (Wb) - Port No growth in 48 hours. 02/05/18 11:01 Respiratory Panel (PCR) - Final Mucosa - Nasopharyngeal 02/04/18 17:25 Streptococcus pneumoniae Antigen (M - Final Urine, Random 02/04/18 17:25 Legionella Antigen - Final Urine, Random Medical Necessity - Tobacco Use Smoking Status: Never smoker Assessment/Plan All Active Problems (Last Reviewed 09/16/17 @ 17:51 by Torey James DO) Acute respiratory failure with hypoxia (Acute) Severe sepsis (Acute) C. difficile colitis (Resolved) 1. Acute hypoxic respiratory failure and acute sepsis 2/2 BL pna - CAP vs Aspiration - continue unasyn, azithro. Provide aerosols and mucinex. Multiple episodes of aspiration in past. G tube in place. He has been seen by Drs. Monsalve/Harish in the past. Sepsis demonstrated by fever/tachycardic/tachypneic, negative lactate. -Respiratory status is stable -Restart tube feeds 20cc/hr reconsult cellular biologist -Resp panel neg, blood culture neg, antigens neg -Small amount of enterococcus in urine sample -Afebrile, no leukocytosis -Some fluid on imaging, restart home lasix. 2. Cerebral palsy - has colostomy - consult wound nurse. Also has implanted abdominal/spinal baclofen pump that is not working. Baclofen held for hypotension. Restart tube feeds as above. 3. Mild normocytic anemia - stable. 4. Chronic LE edema - continue socorro wraps. Restart home lasix. 5. Chronic constipation - continue aggressive home bowel regimen. 6. Hx Seizures - continue phenobarb DVT ppx: lovenox DC planning: Parents are multimedia assistant caregivers. This patient was seen by Paul Jackson PA-C under the supervision of Doctor Cuauhtemoc <Michael Posadas - Last Filed: 02/07/18 15:31> - Physical Exam Vital Signs Temp Pulse Resp BP Pulse Ox 98.5 F 86 18 121/88 H 95 02/07/18 14:15 02/07/18 14:15 02/07/18 14:15 02/07/18 14:15 02/07/18 14:15 Oxygen Flow Rate (L/min) 2 Oxygen Delivery Method Nasal Cannula Weight: 77.9 kg Body Mass Index (BMI) 33.5 Intake and Output for Last 24 Hours 02/05/18 02/06/18 02/07/18 23:59 23:59 23:59 Intake Total 4650 / 4650 1711 / 1711 790 / 790 Output Total 620 / 620 500 / 500 Balance 4650 / 4650 1091 / 1091 290 / 290 Microbiology Past 72 Hours 02/04/18 17:25 Urine Culture - Preliminary Urine, Catheterized GPC Poss Enterococcus sp 02/04/18 16:45 Blood Culture - Preliminary Blood Culture (Wb) - Left Hand No growth in 48 hours. 02/04/18 15:20 Blood Culture - Preliminary Blood Culture (Wb) - Port No growth in 48 hours. 02/05/18 11:01 Respiratory Panel (PCR) - Final Mucosa - Nasopharyngeal 02/04/18 17:25 Streptococcus pneumoniae Antigen (M - Final Urine, Random 02/04/18 17:25 Legionella Antigen - Final Urine, Random Assessment/Plan This patient was seen in conjunction with Paul Jackson PA-C . I have independently interviewed and examined the patient and reviewed pertinent historical, laboratory, and other data. Please refer to Paul Jackson PA-C note for details of this patient's presentation, findings, and recommendations. I have reviewed Paul Jackson PA-C note and concur with documented findings. In brief, patient is a 38-year-old gentleman with history of cerebral palsy and subsequently any disability who presented with shortness of breath and assessment of acute hypoxic respiratory failure secondary to aspiration pneumonia with sepsis. Admitted to monitored bed where patient has since been managed Physical Examination: Assessment: 1. Hypoxic respiratory failure 2. Sepsis secondary to aspiration pneumonia 3. Cerebral palsy 4. Normocytic anemia 5. Baclofen pump on account of bilateral lower extremity spasms scheduled to be reviewed at [facility] 6. Chronic constipation 7. Seizure disorder Recommendations: 1. I have discussed the results of my overview and impressions with the patient 2. Options for management were reviewed Active Medications Enoxaparin Sodium (Lovenox) 40 mg SC DAILY@1000 [facility] Last Admin: 02/07/18 08:46 Dose: 40 mg Famotidine (Pepcid) 20 mg GT BID [facility] Last Admin: 02/07/18 09:00 Dose: 20 mg Furosemide (Lasix) 20 mg GT DAILY [facility] Ampicillin Sodium/Sulbactam (Sodium 3 gm/ Sodium Chloride) 112 mls @ 150 mls/hr IV Q8 [facility] Last Admin: 02/07/18 13:45 Dose: 150 mls/hr Azithromycin 500 mg/ Dextrose 255 mls @ 250 mls/hr IV Q24 [facility] Last Admin: 02/07/18 09:07 Dose: 250 mls/hr Lactobacillus Acidophilus (Acidophilus) 1 tablet GT DAILY [facility] Last Admin: 02/07/18 08:42 Dose: 1 tablet Lactulose (Chronulac, Cephulac) 30 gm GT DAILY [facility] Last Admin: 02/07/18 08:43 Dose: 30 gm Loratadine (Claritin) 10 mg GT DAILY [facility] Last Admin: 02/07/18 08:46 Dose: 10 mg Magnesium Hydroxide (Milk Of Magnesia) 30 ml PO DAILY PRN PRN Reason: Constipation Magnesium Hydroxide (Milk Of Magnesia) 35 - 50 ml GT DAILY PRN PRN PRN Reason: Constipation Metoclopramide HCl (Reglan) 5 mg GT TID [facility] Last Admin: 02/07/18 13:40 Dose: 5 mg Ondansetron HCl (Zofran) 4 mg IV Q6H PRN PRN PRN Reason: NAUSEA/VOMITING Last Admin: 02/07/18 05:58 Dose: 4 mg Phenobarbital (Phenobarbital) 60 mg GT BID [facility] Last Admin: 02/07/18 08:52 Dose: 60 mg Polyethylene Glycol (Miralax) 17 gm GT DAILY [facility] Last Admin: 02/07/18 09:00 Dose: 17 gm Potassium Bicarb/Potassium Chloride (Potassium Chl 25 Meq Eff (For Liquid)) [facility] Last Admin: 02/07/18 08:42 Dose: 25 meq Senna/Docusate Sodium (Senokot-S, Kim-Colace) 1 tablet GT PRN PRN PRN Reason: CONSTIPATION Simethicone (Mylicon) 40 mg GT TID [facility] Last Admin: 02/07/18 13:40 Dose: 40 mg Sodium Chloride () 5 - 15 ml IV UD PRN PRN Reason: SALINE FLUSH Last Admin: 02/06/18 11:32 Dose: 10 ml Clinical Impression(s) from Imaging Studies Chest X-Ray 02/04/18 14:06 IMPRESSION: Nearly nondiagnostic study. Bilateral pulmonary infiltrates consider atelectasis and/or edema. Electronically Signed: Jaylin Servin MD at 15:03 EST Tel , Service support , KUB X-Ray 02/05/18 10:45 IMPRESSION: Findings are most consistent with ileus. Electronically Signed: Jaylin Servin MD at 15:07 EST Tel , Service support , Chest X-Ray 02/06/18 05:55 IMPRESSION: 1. Favorable change with decreased pulmonary infiltrates. 2. Hypoinflation with persistent bibasilar atelectasis. Trace bilateral pleural effusions. Electronically Signed: John Chavez MD at 10:15 EST , Service support , Code Visit Inpatient E&M: 94194 Subs Hosp L3
--- NOTE | 2018-02-07 15:29 | NURSING ---
per maintenance technician 3rd shift, tf flush decreased to 100 cc every 4 hrs
[2018-02-07] MEDS: Menthol/Lanolin/Calamine/Znox 113 GM Tube 1 APPLIC TOPICAL (23:00)
[2018-02-08] VITALS (8 sets, daily range): BP systolic 119–139; BP diastolic 73–88; PULSE 78–92; RESP 16–18; TEMP 36.8–37.5; O2SAT 93–94
[2018-02-08] MEDS: 0.9% NaCl Peripheral Flush Adult/Peds IV ×3 (04:35→17:46)
[2018-02-08 04:54] LABS: Absolute Lymphocyte Count 1.92 X10^3/ul (0.83-4.51); Absolute Neutrophil Count 1.9 X10^3/uL (2.0-7.7); Basophil# 0.02 X10^3/uL; Basophil% 0.4 % (0-1); Eosinophil# 0.15 X10^3/uL; Eosinophils% 3.2 % (0-5); Hematocrit 32.6 % (40-54); Hemoglobin 10.3 g/dl (13.0-16.5); Lymphocyte # 1.92 X10^3/ul (4.0); Lymphocyte % 40.7 % (19-41); Mean Corp Hgb Conc 31.6 g/gl (32-36); Mean Corpuscular Hgb 29.2 pg (27.0-32.0); Mean Corpuscular Volume 92.4 fL (80-94); Mean Platelet Vol. 9.2 fl (6.2-12.0); Monocyte# 0.69 X10^3/uL; Monocyte% 14.6 % (0-10); Neutrophil # 1.94 X10^3/uL (2.7-7.7); Neutrophil % 41.1 % (47-70); Platelet Count 166 K/mm3 (150-450); RBC Distribution Width CV 15.9 % (11.6-14.6); RBC Distribution Width SD 52.9 fl (35.1-43.9); Red Blood Count 3.53 M/mm3 (4.6-6.2); White Blood Count 4.7 K/mm3 (4.4-11.0)
[2018-02-08 04:55] LABS: POSITIVE COUNT NO; POSITIVE DIFFERENTIAL NO; POSITIVE MORPHOLOGY NO
[2018-02-08 05:17] LABS: Anion Gap 7 (5-15); BUN 5 mg/dL (7-18); BUN/Creat Ratio 16.7 RATIO (10-20); Calcium,Total 8.4 mg/dL (8.5-10.1); Chloride 108 mmol/L (98-107); EST Glomerular Filtration Rate 361 mL/min (>60); Est Glom Filt Rate - Afr Amer 436 mL/min (>60); Estimated Creatinine Clearance 240.74 ml/min; Glucose 79 mg/dL (74-106); Potassium 3.2 mmol/L (3.5-5.1); Sodium Level 147 mmol/L (136-145)
[2018-02-08] MEDS: Metoclopramide 10 MG/10 ML UDC 5 MG GT ×2 (05:46→14:09)
[2018-02-08] MEDS: Simethicone 40MG/0.6ML Bottle 40 MG GT ×2 (05:46→14:09)
[2018-02-08] MEDS: Enoxaparin 40 MG/0.4 ML Syringe SC (09:45)
[2018-02-08] MEDS: Polyethylene Glycol 3350 17 GM PACKET GT (09:46)
[2018-02-08] MEDS: Loratadine 10 MG Tablet GT (09:46)
[2018-02-08] MEDS: Famotidine 20 MG Tablet GT (09:46)
[2018-02-08] MEDS: Menthol/Lanolin/Calamine/Znox 113 GM Tube 1 APPLIC TOPICAL (09:46)
[2018-02-08] MEDS: Lactulose 20 GM/30 ML UDC 30 GM GT (09:47)
[2018-02-08] MEDS: Furosemide 20 MG Tablet GT (09:47)
[2018-02-08 09:50] LABS: Magnesium 1.6 mg/dL (1.6-2.6)
[2018-02-08] MEDS: Phenobarbital 20 MG/5 ML UDC 60 MG GT (09:52)
--- NOTE | 2018-02-08 10:41 | DCINST_ITS ---
- Discharge Diagnoses Current Active Problems: Current Active and Chronic Problems (Last Reviewed 09/16/17 @ 17:51 by Torey James DO) Acute respiratory failure with hypoxia (Acute) You will use the following diet at home:: Other - 1.) Suggest restart TF of Jevity 1.5 South at 20 ml/hr & increase by 10 ml/hr Q 6-8 hours to goal rate 50 ml/hr as tolerated to provide 1800 kcal, 77 gm protein & 912 ml free water. 2.) Suggest 150 ml water flush Q 4 hours for an additional 900 ml free water (total 1812 ml free water per day) when goal rate achieved. In the meantime suggest 100 ml water flush Q Discharge Activity: Return to Normal Activity Allergies/Adverse Reactions: Allergies cisapride monohydrate [From Propulsid] Allergy (Verified 02/04/18 13:47) Rash codeine Adverse Reaction (Verified 02/04/18 13:47) hallucinations metronidazole [From Flagyl] Adverse Reaction (Verified 02/04/18 13:47) Rash morphine Adverse Reaction (Verified 02/04/18 13:47) Hallucinations dust Allergy (Uncoded 02/04/18 13:47) Other Medications to take at Discharge Simethicone 40MG/0.6ML [Mylicon] 40 mg GT TID 11/09/13 Pantoprazole Sodium [Protonix] 20 ml GT BID 08/09/14 Senna/Docusate Sodium 5 ml GT PRN PRN 08/03/15 Polyethylene Glycol 3350 [Miralax] 17 gm GT DAILY 08/30/15 Magnesium Hydroxide [Milk Of Magnesia] 35 - 50 ml GT DAILY PRN PRN 12/20/15 Metoclopramide [Reglan Solution] 5 mg GT TID 12/20/15 Lactulose [Chronulac] 30 ml GT DAILY 06/01/16 Phenobarbital 60 mg GT BID 02/19/17 furosemide 10 mg/mL oral solution 20 mg PO DAILY ml 11/09/17 Cetirizine HCl [Zyrtec] 10 mg PO DAILY 02/04/18 Lactobacillus Acidophilus [Acidophilus] 1 cap PO DAILY 02/04/18 Potassium Chl Soln 15 meq GT DAILY 02/04/18 Amox/Clav 400mg/5ml Susp [Augmentin Suspension 400mg/5ml] 800 mg PO BIDCM #1 bottle 02/08/18 Jevity 1.5 1,000 ml PO 4X/DAY #0 02/08/18 The following prescriptions were given: Amox/Clav 400mg/5ml Susp [Augmentin Suspension 400mg/5ml] 800 mg PO BIDCM #1 bottle Orders to be completed after discharge: Basic Metabolic Profile (BMP) Time Frame: 3 Days, Location: Laboratory Primary Care Physician: Timmy Severino MD [Primary Care Provider] - Please follow up with your Primary Care Physician in: 1 week Test Results: Test results from this visit will be discussed in further detail at your follow- up appointment, if applicable. Proposed Discharge Date: 02/08/18
--- NOTE | 2018-02-08 11:17 | PHA.DC.MC ---
Pharmacy Service has performed discharge medication reconciliation and counseling for this patient. The patient's discharge medication list was reviewed for discrepancies and discrepancies were resolved. The patient was counseled on the following discharge medications and changes in medications for homegoing were reviewed. The Reason for Use, instructions for use, and potential side effects were reviewed for all new medications. The patient's questions regarding all of their medications were answered. Home Medications Simethicone 40MG/0.6ML [Mylicon] 40 mg GT TID 11/09/13 Pantoprazole Sodium [Protonix] 20 ml GT BID 08/09/14 Senna/Docusate Sodium 5 ml GT PRN PRN 08/03/15 Polyethylene Glycol 3350 [Miralax] 17 gm GT DAILY 08/30/15 Magnesium Hydroxide [Milk Of Magnesia] 35 - 50 ml GT DAILY PRN PRN 12/20/15 Metoclopramide [Reglan Solution] 5 mg GT TID 12/20/15 Lactulose [Chronulac] 30 ml GT DAILY 06/01/16 Phenobarbital 60 mg GT BID 02/19/17 furosemide 10 mg/mL oral solution 20 mg PO DAILY ml 11/09/17 Cetirizine HCl [Zyrtec] 10 mg PO DAILY 02/04/18 Lactobacillus Acidophilus [Acidophilus] 1 cap PO DAILY 02/04/18 Potassium Chl Soln 15 meq GT DAILY 02/04/18 Amox/Clav 400mg/5ml Susp [Augmentin Suspension 400mg/5ml] 800 mg PO BIDCM #1 bottle 02/08/18 -counseled Jevity 1.5 1,000 ml PO 4X/DAY #0 02/08/18 The patient was not able to adequately demonstrate understanding. Counseled mother who is caregiver of patient. Caregiver verbalized understanding of medications, side effects, etc.
--- NOTE | 2018-02-08 14:41 | PCM.DC.SUM ---
<Paul Jackson - Last Filed: 02/08/18 14:41> Discharge Date and Diagnosis - Problem List Patient Problems: Active and Suspected Problems (Last Reviewed 09/16/17 @ 17:51 by Torey James DO) Acute respiratory failure with hypoxia (Acute) Date of Admission: 02/04/18 Date of Discharge: 02/08/18 - Primary Discharge Diagnosis Active and Suspected Problems (Last Reviewed 09/16/17 @ 17:51 by Torey James DO) Acute respiratory failure with hypoxia (Acute) 2/2 Recurrent aspiration pna Chronic hypoxic respiratory failure Cerebral palsy Nonverbal Chronic LE edema Presence of G tube Presence of Baclofen pump Chronic constipation Chronic anemia Hx Seizures - Secondary Discharge Diagnosis Chronic Problems (Last Updated 02/05/18 @ 13:59 by Gumaro Kohli MD) Nonrheumatic mitral valve prolapse (Chronic) C. 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 Bilateral pulmonary infiltrates consider atelectasis and/or edema. RAD/Abdomen Single View (Portable) IMPRESSION: Findings are most consistent with ileus. RAD/Chest PA and Lateral IMPRESSION: 1. Favorable change with decreased pulmonary infiltrates. 2. Hypoinflation with persistent bibasilar atelectasis. Trace bilateral pleural effusions. Operations: None Procedures: None Summary of Care Provided: Hospital course: The patient is a 38 year old M with pmhx of cerebral palsy, multiple episodes of aspiration pna, chronic constipation, chronic normocytic anemia, history of seizure disorder, who presented to the emergency room with increased spasticity and fever at home. He did have a fever in the ER, he was hypoxic on 4 L of oxygen. He only uses oxygen normally at night at home. He was also tachycardic and had presence of pneumonia on chest [id number]. This felt that he likely had another episode of aspiration pneumonia. He was admitted to the PCU for acute sepsis secondary to aspiration pneumonia. He was placed on Unasyn and azithromycin. Patient receives his feedings via a G-tube which was initially maintained. He had an episode of nausea and vomiting with presumed aspiration and these were temporarily discontinued. His condition improved we gradually reintroduce his tube feeds without issue. He had resolution of his fevers and normalization of all of his vital signs. Blood cultures were negative. Urine antigens were negative. His urine culture did show enterococcus and corynebacterium however the significance of this with respect to his pneumonia is unclear. His respiratory panel was negative. His family desired to take him home as there is full-time caregivers. He was transitioned to G-tube liquid Augmentin. He will complete a total of 10 days of therapy for this. He will need to follow-up tomorrow with his surgeon as they are going to redo his baclofen pump that has not been working lately. He otherwise will need to follow-up with his PCP in 1-2 weeks. He was discharged home in stable condition. This patient was seen by Paul Jackson PA-C under the supervision of Doctor Posadas. [] Patient Problems: Active and Suspected Problems (Last Reviewed 09/16/17 @ 17:51 by Torey James DO) Acute respiratory failure with hypoxia (Acute) - Physical Exam General: Alert, Oriented x3, Cooperative HEENT: Atraumatic, PERRLA, EOMI, Normocephalic Neck: Supple, No JVD, Negative Carotid Bruits Lungs: Diminished Cardiovascular: Regular rate, No murmurs Abdomen: Bowel Sounds Present, Soft, Non Tender Extremities: No edema, Capillary Refill Less than 3 Seconds Skin: No rashes, No breakdown Musculoskeletal: No Tenderness to Palpation of Joints or Extremities Neurological: Cranial nerves II-XII grossly intact Psych/Mental Status: Normal Affect, Appropriate Vital Signs Temp Pulse Resp BP Pulse Ox 99.5 F H 86 18 139/88 H 93 02/08/18 08:15 02/08/18 14:00 02/08/18 14:00 02/08/18 08:15 02/08/18 08:15 Oxygen Flow Rate (L/min) 1.5 Oxygen Delivery Method Nasal Cannula Weight: 171 lb 11.841 oz Body Mass Index (BMI) 33.5 Intake and Output for Last 24 Hours 02/06/18 02/07/18 02/08/18 23:59 23:59 23:59 Intake Total 1711 / 1711 840 / 840 1239 / 1239 Output Total 620 / 620 500 / 500 400 / 400 Balance 1091 / 1091 340 / 340 839 / 839 Microbiology Past 72 Hours 02/04/18 17:25 Urine Culture - Final Urine, Catheterized Enterococcus faecalis Corynebacterium species 02/04/18 16:45 Blood Culture - Preliminary Blood Culture (Wb) - Left Hand No growth in 48 hours. 02/04/18 15:20 Blood Culture - Preliminary Blood Culture (Wb) - Port No growth in 48 hours. 02/05/18 11:01 Respiratory Panel (PCR) - Final Mucosa - Nasopharyngeal Laboratory Tests Past 24 Hrs 02/08/18 02/08/18 02/08/18 04:40 04:40 04:40 WBC 4.7 RBC 3.53 L Hgb 10.3 L Hct 32.6 L MCV 92.4 MCH 29.2 MCHC 31.6 L RDW 15.9 H RDW Differential 52.9 H Plt Count 166 MPV 9.2 Immature Gran % (Auto) 0.000 Neut % (Auto) 41.1 L Lymph % (Auto) 40.7 [place] % (Auto) 14.6 H Eos % (Auto) 3.2 Baso % (Auto) 0.4 Absolute Neuts (auto) 1.9 L Absolute Lymphs (auto) 1.92 Total Counted Not Reportable Sodium 147 H Potassium 3.2 L Chloride 108 H Carbon Dioxide 32.0 Anion Gap 7 BUN 5 L Creatinine 0.30 L Estim Creat Clear Calc 240.74 Est GFR (MDRD) Af Amer 436 Est GFR (MDRD) Non-Af 361 BUN/Creatinine Ratio 16.7 Glucose 79 Calcium 8.4 L Phosphorus 2.0 L Magnesium 1.6 Discharge Diet: - - Resume PEG tube feedings as directed by city routeman. Discharge Activity: Return to Normal Activity Home Medications: Medications to take at Discharge Simethicone 40MG/0.6ML [Mylicon] 40 mg GT TID 11/09/13 Pantoprazole Sodium [Protonix] 20 ml GT BID 08/09/14 Senna/Docusate Sodium 5 ml GT PRN PRN 08/03/15 Polyethylene Glycol 3350 [Miralax] 17 gm GT DAILY 08/30/15 Magnesium Hydroxide [Milk Of Magnesia] 35 - 50 ml GT DAILY PRN PRN 12/20/15 Metoclopramide [Reglan Solution] 5 mg GT TID 12/20/15 Lactulose [Chronulac] 30 ml GT DAILY 06/01/16 Phenobarbital 60 mg GT BID 02/19/17 furosemide 10 mg/mL oral solution 20 mg PO DAILY ml 11/09/17 Cetirizine HCl [Zyrtec] 10 mg PO DAILY 02/04/18 Lactobacillus Acidophilus [Acidophilus] 1 cap PO DAILY 02/04/18 Potassium Chl Soln 15 meq GT DAILY 02/04/18 Amox/Clav 400mg/5ml Susp [Augmentin Suspension 400mg/5ml] 800 mg PO BIDCM #1 bottle 02/08/18 Jevity 1.5 1,000 ml PO 4X/DAY #0 02/08/18 Following Prescrptions Were Given to Patient: Amox/Clav 400mg/5ml Susp [Augmentin Suspension 400mg/5ml] 800 mg PO BIDCM #1 bottle Other Amb Orders: Basic Metabolic Profile (BMP) Time Frame: 3 Days, Location: Laboratory Primary Care Physician: Timmy Severino MD [Primary Care Provider] - Please follow up with your Primary Care Physician in: 1 week Disposition: Home Minutes spent on discharge:: 35 Patient Condition:: Stable Medical Necessity - Tobacco Use Smoking Status: Never smoker Meaningful Use Info Meaningful Use Diagnoses (Choose all that apply): None applicable <Michael Posadas - Last Filed: 02/08/18 15:02> Discharge Date and Diagnosis - Primary Discharge Diagnosis Active and Suspected Problems (Last Reviewed 09/16/17 @ 17:51 by Torey James DO) Acute respiratory failure with hypoxia (Acute) - Secondary Discharge Diagnosis Chronic Problems (Last Updated 02/05/18 @ 13:59 by Gumaro Kohli MD) Nonrheumatic mitral valve prolapse (Chronic) C. 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) Hospital Course and Treatment Summary of Care Provided: This patient was seen in conjunction with Paul Jackson PA-C . I have independently interviewed and examined the patient and reviewed pertinent historical, laboratory, and other data. Please refer to Paul Jackson PA-C note for details of this patient's presentation, findings, and recommendations. I have reviewed Paul Renetta PA-C note and concur with documented findings. In brief, patient is a 38-year-old gentleman with history of cerebral palsy and subsequently any disability who presented with shortness of breath and assessment of acute hypoxic respiratory failure secondary to aspiration pneumonia with sepsis. Admitted to monitored bed where patient has since been managed Assessment: 1. Hypoxic respiratory failure 2. Sepsis secondary to aspiration pneumonia 3. Cerebral palsy 4. Normocytic anemia 5. Baclofen pump on account of bilateral lower extremity spasms scheduled to be reviewed at [facility] 6. Chronic constipation 7. Seizure disorder Course: As elicited above by Paul Jackson - Physical Exam Vital Signs Temp Pulse Resp BP Pulse Ox 99.5 F H 86 18 139/88 H 93 02/08/18 08:15 02/08/18 14:00 02/08/18 14:00 02/08/18 08:15 02/08/18 08:15 Oxygen Flow Rate (L/min) 1.5 Oxygen Delivery Method Nasal Cannula Weight: 77.9 kg Body Mass Index (BMI) 33.5 Intake and Output for Last 24 Hours 02/06/18 02/07/18 02/08/18 23:59 23:59 23:59 Intake Total 1711 / 1711 840 / 840 1239 / 1239 Output Total 620 / 620 500 / 500 400 / 400 Balance 1091 / 1091 340 / 340 839 / 839 Microbiology Past 72 Hours 02/04/18 17:25 Urine Culture - Final Urine, Catheterized Enterococcus faecalis Corynebacterium species 02/04/18 16:45 Blood Culture - Preliminary Blood Culture (Wb) - Left Hand No growth in 48 hours. 02/04/18 15:20 Blood Culture - Preliminary Blood Culture (Wb) - Port No growth in 48 hours. 02/05/18 11:01 Respiratory Panel (PCR) - Final Mucosa - Nasopharyngeal Laboratory Tests Past 24 Hrs 02/08/18 02/08/18 02/08/18 04:40 04:40 04:40 WBC 4.7 RBC 3.53 L Hgb 10.3 L Hct 32.6 L MCV 92.4 MCH 29.2 MCHC 31.6 L RDW 15.9 H RDW Differential 52.9 H Plt Count 166 MPV 9.2 Immature Gran % (Auto) 0.000 Neut % (Auto) 41.1 L Lymph % (Auto) 40.7 [place] % (Auto) 14.6 H Eos % (Auto) 3.2 Baso % (Auto) 0.4 Absolute Neuts (auto) 1.9 L Absolute Lymphs (auto) 1.92 Total Counted Not Reportable Sodium 147 H Potassium 3.2 L Chloride 108 H Carbon Dioxide 32.0 Anion Gap 7 BUN 5 L Creatinine 0.30 L Estim Creat Clear Calc 240.74 Est GFR (MDRD) Af Amer 436 Est GFR (MDRD) Non-Af 361 BUN/Creatinine Ratio 16.7 Glucose 79 Calcium 8.4 L Phosphorus 2.0 L Magnesium 1.6 Code Visit Inpatient E&M: 88987 Disch Hosp
--- NOTE | 2018-02-08 14:47 | DS.PCM_ITS ---
<Paul Jackson - Last Filed: 02/08/18 14:41> Discharge Date and Diagnosis - Problem List Patient Problems: Active and Suspected Problems (Last Reviewed 09/16/17 @ 17:51 by Torey James DO) Acute respiratory failure with hypoxia (Acute) Date of Admission: 02/04/18 Date of Discharge: 02/08/18 - Primary Discharge Diagnosis Active and Suspected Problems (Last Reviewed 09/16/17 @ 17:51 by Torey James DO) Acute respiratory failure with hypoxia (Acute) 2/2 Recurrent aspiration pna Chronic hypoxic respiratory failure Cerebral palsy Nonverbal Chronic LE edema Presence of G tube Presence of Baclofen pump Chronic constipation Chronic anemia Hx Seizures - Secondary Discharge Diagnosis Chronic Problems (Last Updated 02/05/18 @ 13:59 by Gumaro Kohli MD) Nonrheumatic mitral valve prolapse (Chronic) C. 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 Bilateral pulmonary infiltrates consider atelectasis and/or edema. RAD/Abdomen Single View (Portable) IMPRESSION: Findings are most consistent with ileus. RAD/Chest PA and Lateral IMPRESSION: 1. Favorable change with decreased pulmonary infiltrates. 2. Hypoinflation with persistent bibasilar atelectasis. Trace bilateral pleural effusions. Operations: None Procedures: None Summary of Care Provided: Hospital course: The patient is a 38 year old M with pmhx of cerebral palsy, multiple episodes of aspiration pna, chronic constipation, chronic normocytic anemia, history of seizure disorder, who presented to the emergency room with increased spasticity and fever at home. He did have a fever in the ER, he was hypoxic on 4 L of oxygen. He only uses oxygen normally at night at home. He was also tachycardic and had presence of pneumonia on chest [id number]. This felt that he likely had another episode of aspiration pneumonia. He was admitted to the PCU for acute sepsis secondary to aspiration pneumonia. He was placed on Unasyn and azithromycin. Patient receives his feedings via a G-tube which was initially maintained. He had an episode of nausea and vomiting with presumed aspiration and these were temporarily discontinued. His condition improved we gradually reintroduce his tube feeds without issue. He had resolution of his fevers and normalization of all of his vital signs. Blood cultures were negative. Urine antigens were negative. His urine culture did show enterococcus and corynebacterium however the significance of this with respect to his pneumonia is unclear. His respiratory panel was negative. His family desired to take him home as there is full-time caregivers. He was transitioned to G-tube liquid Augmentin. He will complete a total of 10 days of therapy for this. He will need to follow-up tomorrow with his surgeon as they are going to redo his baclofen pump that has not been working lately. He otherwise will need to follow-up with his PCP in 1-2 weeks. He was discharged home in stable condition. This patient was seen by Paul Jackson PA-C under the supervision of Doctor Posadas. [] Patient Problems: Active and Suspected Problems (Last Reviewed 09/16/17 @ 17:51 by Torey James DO) Acute respiratory failure with hypoxia (Acute) - Physical Exam General: Alert, Oriented x3, Cooperative HEENT: Atraumatic, PERRLA, EOMI, Normocephalic Neck: Supple, No JVD, Negative Carotid Bruits Lungs: Diminished Cardiovascular: Regular rate, No murmurs Abdomen: Bowel Sounds Present, Soft, Non Tender Extremities: No edema, Capillary Refill Less than 3 Seconds Skin: No rashes, No breakdown Musculoskeletal: No Tenderness to Palpation of Joints or Extremities Neurological: Cranial nerves II-XII grossly intact Psych/Mental Status: Normal Affect, Appropriate Vital Signs Temp Pulse Resp BP Pulse Ox 99.5 F H 86 18 139/88 H 93 02/08/18 08:15 02/08/18 14:00 02/08/18 14:00 02/08/18 08:15 02/08/18 08:15 Oxygen Flow Rate (L/min) 1.5 Oxygen Delivery Method Nasal Cannula Weight: 171 lb 11.841 oz Body Mass Index (BMI) 33.5 Intake and Output for Last 24 Hours 02/06/18 02/07/18 02/08/18 23:59 23:59 23:59 Intake Total 1711 / 1711 840 / 840 1239 / 1239 Output Total 620 / 620 500 / 500 400 / 400 Balance 1091 / 1091 340 / 340 839 / 839 Microbiology Past 72 Hours 02/04/18 17:25 Urine Culture - Final Urine, Catheterized Enterococcus faecalis Corynebacterium species 02/04/18 16:45 Blood Culture - Preliminary Blood Culture (Wb) - Left Hand No growth in 48 hours. 02/04/18 15:20 Blood Culture - Preliminary Blood Culture (Wb) - Port No growth in 48 hours. 02/05/18 11:01 Respiratory Panel (PCR) - Final Mucosa - Nasopharyngeal Laboratory Tests Past 24 Hrs 02/08/18 02/08/18 02/08/18 04:40 04:40 04:40 WBC 4.7 RBC 3.53 L Hgb 10.3 L Hct 32.6 L MCV 92.4 MCH 29.2 MCHC 31.6 L RDW 15.9 H RDW Differential 52.9 H Plt Count 166 MPV 9.2 Immature Gran % (Auto) 0.000 Neut % (Auto) 41.1 L Lymph % (Auto) 40.7 [place] % (Auto) 14.6 H Eos % (Auto) 3.2 Baso % (Auto) 0.4 Absolute Neuts (auto) 1.9 L Absolute Lymphs (auto) 1.92 Total Counted Not Reportable Sodium 147 H Potassium 3.2 L Chloride 108 H Carbon Dioxide 32.0 Anion Gap 7 BUN 5 L Creatinine 0.30 L Estim Creat Clear Calc 240.74 Est GFR (MDRD) Af Amer 436 Est GFR (MDRD) Non-Af 361 BUN/Creatinine Ratio 16.7 Glucose 79 Calcium 8.4 L Phosphorus 2.0 L Magnesium 1.6 Discharge Diet: - - Resume PEG tube feedings as directed by verification manager. Discharge Activity: Return to Normal Activity Home Medications: Medications to take at Discharge Simethicone 40MG/0.6ML [Mylicon] 40 mg GT TID 11/09/13 Pantoprazole Sodium [Protonix] 20 ml GT BID 08/09/14 Senna/Docusate Sodium 5 ml GT PRN PRN 08/03/15 Polyethylene Glycol 3350 [Miralax] 17 gm GT DAILY 08/30/15 Magnesium Hydroxide [Milk Of Magnesia] 35 - 50 ml GT DAILY PRN PRN 12/20/15 Metoclopramide [Reglan Solution] 5 mg GT TID 12/20/15 Lactulose [Chronulac] 30 ml GT DAILY 06/01/16 Phenobarbital 60 mg GT BID 02/19/17 furosemide 10 mg/mL oral solution 20 mg PO DAILY ml 11/09/17 Cetirizine HCl [Zyrtec] 10 mg PO DAILY 02/04/18 Lactobacillus Acidophilus [Acidophilus] 1 cap PO DAILY 02/04/18 Potassium Chl Soln 15 meq GT DAILY 02/04/18 Amox/Clav 400mg/5ml Susp [Augmentin Suspension 400mg/5ml] 800 mg PO BIDCM #1 yonatan ttle 02/08/18 Jevity 1.5 1,000 ml PO 4X/DAY #0 02/08/18 Following Prescrptions Were Given to Patient: Amox/Clav 400mg/5ml Susp [Augmentin Suspension 400mg/5ml] 800 mg PO BIDCM #1 bottle Other Amb Orders: Basic Metabolic Profile (BMP) Time Frame: 3 Days, Location: Laboratory Primary Care Physician: Timmy Severino MD [Primary Care Provider] - Please follow up with your Primary Care Physician in: 1 week Disposition: Home Minutes spent on discharge:: 35 Patient Condition:: Stable Medical Necessity - Tobacco Use Smoking Status: Never smoker Meaningful Use Info Meaningful Use Diagnoses (Choose all that apply): None applicable <Michael Posadas - Last Filed: 02/08/18 15:02> Discharge Date and Diagnosis - Primary Discharge Diagnosis Active and Suspected Problems (Last Reviewed 09/16/17 @ 17:51 by Torey James DO) Acute respiratory failure with hypoxia (Acute) - Secondary Discharge Diagnosis Chronic Problems (Last Updated 02/05/18 @ 13:59 by Gumaro Kohli MD) Nonrheumatic mitral valve prolapse (Chronic) C. 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) Hospital Course and Treatment Summary of Care Provided: This patient was seen in conjunction with Paul Jackson PA-C . I have independently interviewed and examined the patient and reviewed pertinent historical, laboratory, and other data. Please refer to Paul Jackson PA-C note for details of this patient's presentation, findings, and recommendations. I have reviewed Paul Jackson PA-C note and concur with documented findings. In brief, patient is a 38-year-old gentleman with history of cerebral palsy and subsequently any disability who presented with shortness of breath and assessment of acute hypoxic respiratory failure secondary to aspiration pneumonia with sepsis. Admitted to monitored bed where patient has since been managed Assessment: 1. Hypoxic respiratory failure 2. Sepsis secondary to aspiration pneumonia 3. Cerebral palsy 4. Normocytic anemia 5. Baclofen pump on account of bilateral lower extremity spasms scheduled to be reviewed at [facility] 6. Chronic constipation 7. Seizure disorder Course: As elicited above by Paul Jackson - Physical Exam Vital Signs Temp Pulse Resp BP Pulse Ox 99.5 F H 86 18 139/88 H 93 02/08/18 08:15 02/08/18 14:00 02/08/18 14:00 02/08/18 08:15 02/08/18 08:15 Oxygen Flow Rate (L/min) 1.5 Oxygen Delivery Method Nasal Cannula Weight: 77.9 kg Body Mass Index (BMI) 33.5 Intake and Output for Last 24 Hours 02/06/18 02/07/18 02/08/18 23:59 23:59 23:59 Intake Total 1711 / 1711 840 / 840 1239 / 1239 Output Total 620 / 620 500 / 500 400 / 400 Balance 1091 / 1091 340 / 340 839 / 839 Microbiology Past 72 Hours 02/04/18 17:25 Urine Culture - Final Urine, Catheterized Enterococcus faecalis Corynebacterium species 02/04/18 16:45 Blood Culture - Preliminary Blood Culture (Wb) - Left Hand No growth in 48 hours. 02/04/18 15:20 Blood Culture - Preliminary Blood Culture (Wb) - Port No growth in 48 hours. 02/05/18 11:01 Respiratory Panel (PCR) - Final Mucosa - Nasopharyngeal Laboratory Tests Past 24 Hrs 02/08/18 02/08/18 02/08/18 04:40 04:40 04:40 WBC 4.7 RBC 3.53 L Hgb 10.3 L Hct 32.6 L MCV 92.4 MCH 29.2 MCHC 31.6 L RDW 15.9 H RDW Differential 52.9 H Plt Count 166 MPV 9.2 Immature Gran % (Auto) 0.000 Neut % (Auto) 41.1 L Lymph % (Auto) 40.7 [place] % (Auto) 14.6 H Eos % (Auto) 3.2 Baso % (Auto) 0.4 Absolute Neuts (auto) 1.9 L Absolute Lymphs (auto) 1.92 Total Counted Not Reportable Sodium 147 H Potassium 3.2 L Chloride 108 H Carbon Dioxide 32.0 Anion Gap 7 BUN 5 L Creatinine 0.30 L Estim Creat Clear Calc 240.74 Est GFR (MDRD) Af Amer 436 Est GFR (MDRD) Non-Af 361 BUN/Creatinine Ratio 16.7 Glucose 79 Calcium 8.4 L Phosphorus 2.0 L Magnesium 1.6 Code Visit Inpatient E&M: [id number] Disch Hosp
--- OUTSIDE RECORDS SUMMARY | 2018-05-11 06:01 | XMS RPT_ITS ---
:1980 Author Organization OHIP Support Name Relationship Address Phone D Unavailable Unavailable Unavailable SPROSTY, BRICE Unavailable [address] + [place] [address] SPROSTY III, RAY Unavailable [address] + [place] [address] D Unavailable Unavailable Unavailable SPROSTY, BRICE Unavailable [address] + [place] [address] SPROSTY III, RAY Unavailable [address] + [place] [address] D Unavailable Unavailable Unavailable SPROSTY, BRICE Unavailable [address] + [place] [address] SPROSTY III, RAY Unavailable [address] + [place] [address] D Unavailable Unavailable Unavailable SPROSTY, BRICE Unavailable [address] + [place] [address] SPROSTY III, RAY Unavailable [address] + [place] [address] D Unavailable Unavailable Unavailable SPROSTY, BRICE Unavailable [address] + [place] [address] SPROSTY III, RAY Unavailable [address] + [place] [address] D Unavailable Unavailable Unavailable SPROSTY, BRICE Unavailable [address] + [place] [address] SPROSTY III, RAY Unavailable [address] + [place] [address] D Unavailable Unavailable Unavailable SPROSTY, BRICE Unavailable [address] + [place] [address] SPROSTY III, RAY Unavailable [address] + [place] [address] D Unavailable Unavailable Unavailable SPROSTY, BRICE Unavailable [address] + [place] [address] SPROSTY III, RAY Unavailable [address] + [place] [address] D Unavailable Unavailable Unavailable SPROSTY, BRICE Unavailable [address] + [place] [address] SPROSTY III, RAY Unavailable [address] + [place] [address] D Unavailable Unavailable Unavailable SPROSTY, BRICE Unavailable [address] + [place] [address] SPROSTY III, RAY Unavailable [address] + [place] [address] D Unavailable Unavailable Unavailable SPROSTY, BRICE Unavailable [address] + [place] [address] SPROSTY III, RAY Unavailable [address] + [place] [address] D Unavailable Unavailable Unavailable SPROSTY, BRICE Unavailable [address] + [place] [address] SPROSTY III, RAY Unavailable [address] + [place] [address] D Unavailable Unavailable Unavailable SPROSTY, BRICE Unavailable [address] + [place] [address] SPROSTY III, RAY Unavailable [address] + [place] [address] D Unavailable Unavailable Unavailable SPROSTY, BRICE Unavailable [address] + [place] [address] SPROSTY III, RAY Unavailable [address] + [place] [address] D Unavailable Unavailable Unavailable SPROSTY, BRICE Unavailable [address] + [place] [address] SPROSTY III, RAY Unavailable [address] + [place] [address] D Unavailable Unavailable Unavailable SPROSTY, BRICE Unavailable [address] + [place] [address] SPROSTY III, RAY Unavailable [address] + [place] [address] D Unavailable Unavailable Unavailable SPROSTY, BRICE Unavailable [address] + [place] [address] SPROSTY III, RAY Unavailable [address] + [place] [address] D Unavailable Unavailable Unavailable SPROSTY, BRICE Unavailable [address] + [place] [address] SPROSTY III, RAY Unavailable [address] + [place] [address] D Unavailable Unavailable Unavailable SPROSTY, BRICE Unavailable [address] + [place] [address] SPROSTY III, RAY Unavailable [address] + [place] [address] D Unavailable Unavailable Unavailable SPROSTY, BRICE Unavailable [address] + [place] [address] SPROSTY III, RAY Unavailable [address] + [place] [address] D Unavailable Unavailable Unavailable SPROSTY, BRICE Unavailable [address] + [place] [address] SPROSTY III, RAY Unavailable [address] + [place] [address] D Unavailable Unavailable Unavailable SPROSTY, BRICE Unavailable [address] + [place] [address] SPROSTY III, RAY Unavailable [address] + [place] [address] D Unavailable Unavailable Unavailable SPROSTY, BRICE Unavailable [address] + [place] [address] SPROSTY III, RAY Unavailable [address] + [place] [address] D Unavailable Unavailable Unavailable SPROSTY, BRICE Unavailable [address] + [place] [address] SPROSTY III, RAY Unavailable [address] + [place] [address] D Unavailable Unavailable Unavailable SPROSTY, ABILIO Unavailable [address] + [place] [address] SPROSTY III, RAY Unavailable [address] + [place] [address] D Unavailable Unavailable Unavailable SPROSTY, ABILIO Unavailable [address] + [place] [address] SPROSTY III, RAY Unavailable [address] + [place] [address] D Unavailable Unavailable Unavailable SPROSTY, ABILIO Unavailable [address] + [place] [address] SPROSTY III, RAY Unavailable [address] [phone] [place] [address] D Unavailable Unavailable Unavailable SPROSTY, ABILIO Unavailable [address] + [place] [address] SPROSTY III, RAY Unavailable [address] [phone] [place] [address] D Unavailable Unavailable Unavailable SPROSTY, ABILIO Unavailable [address] + [place] [address] SPROSTY III, RAY Unavailable [address] [phone] [place] [address] D Unavailable Unavailable Unavailable SPROSTY, ABILIO Unavailable [address] + [place] [address] SPROSTY III, RAY Unavailable [address] [phone]~330-2 [place] [address] D Unavailable Unavailable Unavailable SPROSTY, ABILIO Unavailable [address] + [place] [address] SPROSTY III, RAY Unavailable [address] [phone] [place] [address] Care Team Providers Name Role Phone ESTEFANIA GONZALEZ Attending Unavailable ESTEFANIA GONZALEZ Referring Unavailable ESTEFANIA GONZALEZ Attending Unavailable ESTEFANIA GONZALEZ Referring Unavailable BETHOUX, CHAO Attending Unavailable NARCISAX, CHAO Referring Unavailable ESTEFANIA GONZALEZ Attending Unavailable BETHOUX, CHAO Referring Unavailable DUARTE MARCH) Attending Unavailable ALEJANDRINA GARCIA (CHAMP) Attending Unavailable ALEJANDRINA GARCIA (CHAMP) Attending Unavailable ALEJANDRINA GARCIA (CHAMP) Referring Unavailable ESTEFANIA GONZALEZ Attending Unavailable BETHOUX, CHAO Referring Unavailable ALEJANDRINA GARCIA (CHAMP) Attending Unavailable ESTEFANIA GONZALEZ Referring Unavailable Perkins, Timmy Primary Care Unavailable Hannas, Barry F Admitting Unavailable Michael Posadas Attending Unavailable Kotsonis, Barry F Admitting Unavailable Perkins, Timmy Primary Care Unavailable Kotsonis, Barry F Consulting Unavailable Kotsonis, Barry F Attending Unavailable Kotsonis, Barry F Admitting Unavailable Perkins, Timmy Primary Care Unavailable Ashelfah, Ghasem Consulting Unavailable Ashelfah, Ghasem Attending Unavailable Kotsonis, Barry F Admitting Unavailable Ashelfah, Ghasem Attending Unavailable Perkins, Timmy Primary Care Unavailable Ashelfah, Ghasem Consulting Unavailable Hannas, Barry F Admitting Unavailable Perkins, Timmy Primary Care Unavailable Michael Posadas Consulting Unavailable Michael oPsadas Attending Unavailable Orlinonis, Barry F Admitting Unavailable Perkins, Timmy Primary Care Unavailable Michael Posadas Consulting Unavailable Michael Posadas Attending Unavailable Mariann, Maury Attending Unavailable Perkins, Timmy Referring Unavailable Perkins, Timmy Primary Care Unavailable Perkins, Timmy Primary Care Unavailable Trevor Rae Attending Unavailable Perkins, Timmy Attending Unavailable Perkins, Timmy Referring Unavailable Perkins, Timmy Primary Care Unavailable Perkins, Timmy Attending Unavailable Perkins, Timmy Primary Care Unavailable Perkins, Timmy Primary Care Unavailable Victor M Huff Attending Unavailable Victor M Huff Referring Unavailable Perkins, Timmy Attending Unavailable Perkins, Timmy Primary Care Unavailable Perkins, Timmy Referring Unavailable Mariann, Maury Attending Unavailable Perkins, Timmy Primary Care Unavailable Mariann, Hailey Referring Unavailable Paul Jackson Consulting Unavailable Mariann, Maury Attending Unavailable Mariann, Maury Referring Unavailable Perkins, Timmy Primary Care Unavailable Perkins, Timmy Attending Unavailable Perkins, Timmy Referring Unavailable Perkins, Timmy Primary Care Unavailable Perkins, Timmy Attending Unavailable Perkins, Timmy Referring Unavailable Perkins, Timmy Primary Care Unavailable Perkins, Timmy Primary Care Unavailable Torey James Admitting Unavailable Jacek Monsalve Consulting Unavailable Cindy Alexandre Attending Unavailable Torey James Attending Unavailable Perkins, Timmy Primary Care Unavailable Torey James Admitting Unavailable Paintsil, Fife Attending Unavailable Perkins, Timmy Primary Care Unavailable Jacek Monsalve Consulting Unavailable Paintsil, Fife Consulting Unavailable Torey James Admitting Unavailable Paintsil, Fife Attending Unavailable Perkins, Timmy Primary Care Unavailable Bello, Jacek Consulting Unavailable Paintsil, Fife Consulting Unavailable Jopperi, Torey Admitting Unavailable Perkins, Timmy Primary Care Unavailable Bello, Jacek Consulting Unavailable Paintsil, Fife Attending Unavailable Paintsil, Fife Consulting Unavailable Jopperi, Torey Admitting Unavailable Yovanny Moreira D.O. Attending Unavailable Perkins, Timmy Primary Care Unavailable Bello, Jacek Consulting Unavailable Koram, Cindy Annemarie Consulting Unavailable Jopperi, Torey Admitting Unavailable Perkins, Timmy Primary Care Unavailable Bello, Jacek Consulting Unavailable Koram, Cindy Annemarie Attending Unavailable Koram, Cindy Annemarie Consulting Unavailable Renetta, Paul Attending Unavailable Renetta, Paul Referring Unavailable Perkins, Timmy Primary Care Unavailable Perkins, Timmy Attending Unavailable Roof, Timmy H Attending Unavailable Perkins, Timmy Referring Unavailable Perkins, Timmy Primary Care Unavailable Bello, Jacek Attending Unavailable Jopperi, Torey Referring Unavailable Mariann, Hailey Attending Unavailable Perkins, Timmy Primary Care Unavailable Mariann, Maury Referring Unavailable Mariann, Hailey Attending Unavailable Mariann, Hailey Referring Unavailable Perkins, Timmy Attending Unavailable Perkins, Timmy Referring Unavailable Mariann, Hailey Attending Unavailable Mariann, Maury Referring Unavailable PROBLEMS PROBLEMS DATE TYPE CONDITION / CODE ATTENDING STATUS SOURCE 02/14/2018 Unknown E87.6 - Hypokalemia / Mariann, Maury Active [place] E87.6(ICD-10) [facility] Repository 12/17/2017 Unknown 276.0 - Timmy Perkins Active [place] [facility] and/or hypernatremia Hospital / 276.0(ICD-9) Repository 12/17/2017 Unknown E87.0 - Timmy Perkins Active [place] [facility] and Community hypernatremia / Hospital E87.0(ICD-10) Repository 08/31/2015 Active Spastic quadriplegic ESTEFANIA GONZALEZ Active [facility] Main G80.0(ICD-10) [place] Repository 02/19/2015 Active Cerebral palsy, ESTEFANIA GONZALEZ Active [facility] unspecified / Clinic Main G80.9(ICD-10) [place] Repository 10/06/2017 Unknown A41.9 - Sepsis, Jacek Monsalve Active [place] unspecified organism Community / A41.9(ICD-10) Hospital Repository 10/06/2017 Unknown R65.20 - Severe BelloJacek campoverde Active [place] sepsis without septic Community shock / Hospital R65.20(ICD-10) Repository 10/06/2017 Unknown J18.9 - Pneumonia, BelloJacek campoverde Active [place] unspecified organism Community / J18.9(ICD-10) Hospital Repository 10/06/2017 Unknown J96.00 - Acute BelloJacek campoverde Active [place] respiratory failure, Community unspecified whether Hospital with hypoxia or Repository hypercapnia / J96.00(ICD-10) 09/07/2017 Unknown R60.9 - Edema, Mariann, Maury Active [place] unspecified / Community R60.9(ICD-10) Hospital Repository 05/11/2017 Active Quadriplegia, ESTEFANIA GONZALEZ Active [facility] unspecified / Clinic Main G82.50(ICD-10) [place] Repository 06/03/2017 Unknown G80.9 - Cerebral PerkinsTimmy Active [place] palsy, unspecified / Community G80.9(ICD-10) Hospital Repository 05/17/2017 Unknown R00.0 - Tachycardia, Kyra, Trevor Active [place] unspecified / Community R00.0(ICD-10) Hospital Repository PROCEDURES PROCEDURES No Procedure Records FoundRESULTS RESULTS BASIC METABOLIC Collected: 03/14/2018 Status: F Source: [place] PROFILE (BMP) 1:20 PM [facility] REPOSITORY TYPE CODE TESTS RESULT OUT OF RANGE REFERENCE UNITS LAB L501.0100 74-106 mg/dL Normal GLU 100 Result Comment: Fasting Glucose result from 100 to 125 mg/dL suggests IMPAIRED HOMEOSTASIS per A.D.A. criteria. Please note revised GLUCOSE reference range effective 2017. LAB L501.1000 7-18 mg/dL High BUN 21 LAB L501.1100 0.70-1.30 mg/dL Low CREAT,SERUM 0.41 Result Comment: The validity of the calculated GFR AND GFRAA in patients over 70 years has not been determined. Clinical correlation is essential. LAB L501.1110 >60 mL/min Normal EST GFR 249 Result Comment: Non- GFR Calc LAB L501.1115 >60 mL/min Normal EST GFR - AA 301 Result Comment: GFR Calc LAB L501.1300 10-20 RATIO High BUN/CRE 50.7 LAB L501.2200 8.5-10.1 mg/dL CA Normal 8.8 LAB L501.5300 136-145 mmol/L NA Normal 140 LAB L501.5600 3.5-5.1 mmol/L K Normal 3.8 LAB L501.5900 98-107 mmol/L CL Normal 105 LAB L501.6100 21.0-32.0 mmol/L Normal CO2 27.0 LAB L501.6200 5-15 Normal GAP 8 Performed By: #### L500.2500 #### [facility] [place], [address] CNOV Observed: 03/07/2018 Status: COMPLETED Source: [place] 2:30 PM [facility] REPOSITORY Office Visit ([facility]) KRISS MICHAEL ([id number]) 1980 M Date Time Provider Department 03/07/18 2:30 PM ALEJANDRINA GARCIA (PA)Barry During your visit today, we recorded the following information about you: Alejandrina Garcia PA-C 03/07/2018 4:02 PM Signed INTRATHECAL BACLOFEN FOLLOW-UP AND REFILL RECORD Written consent for ITB therapy obtained on 08/03/2012. Patient accompanied by parents PAST SURGICAL HISTORY Procedure Laterality Date - BACLOFEN PUMP REFILL AND MAINT 1999 intrathecal - IMPLANT/REPLACE IT PROGR PUMP 03/08/12 Replacement due to end of battery life, SynchroMed II, 40 ml pump - MIDLINE INSERTION/CONSULT 11/27/2014 - PEG TUBE - SPECIFY since age 15 HISTORY SINCE LAST VISIT: -Spasticity: At the last visit, it was attempted to access his pump catheter port for troubleshooting. Unfortunately, there was difficulty finding the port. It was decided to schedule pump replacement surgery (HUBERT is 10 months) and look for a catheter malfunction during that time. Because a malfunction is suspected, the ITB rate is being gradually decreased. The pump rate was decreased by 10% at the last visit. There's been no change in spasticity since the last pump rate decrease. Use of oral medications for spasticity: occasional use of oral baclofen or Ativan. Hasn't been given since the last visit SPASM SCALE (patient report): Occasional spasms Pain related to spasticity or spasms: No pain per mother Is the patient having any pain? No 0 on a scale of 0 to 10 Safety concerns: domestic violence, living situation, and safety at home: no; has IO waiver through [facility] board of ; 2 aides one day a wk each, also care agency sends aides. Driving issues: NA Risk of Falls: NA Exercise/stretching: Performs stretching exercises twice daily Sleep disturbance: Varies per patients, occasional difficulties Mood: Good Bowel symptoms: Constipation, with MOM; on a regular bowel medication regimen Bladder symptoms: no recent UTI Nutrition: has PEG Tube since 1993; tube feeding Skin Integrity: Intact EXAM: Position: Sitting Motor Function: Strength: No volitional movement in LEs Spasticity Right Left Shoulder 2 1+ Elbow fl/ext 1 / 1 1 / 2 Wrist fl/ext 2 / 0 1 / 0 Finger fl/ext 2 / 0 1 / 0 Hip adductors 2 2 Knee extensors 2 2 Knee flexors 2 0 Ankle plantarflexors 0 0 *Contractures noted in bilateral knee extensors MODIFIED LUIS SCALE 0 - No increase in tone 1 - Slight increase in tone (catch and release at end of ROM) 1+ - Slight increase in tone, manifested by a catch, followed by minimal resistance throughout remainder (less than half of ROM) 2 - Marked increase in tone through most of the ROM, but affected part(s) easily moved 3 - Considerable increase in tone; passive movement difficult 4 - Affected part(s) rigid in flexion or extension SPASMS observed: Rt: No Lt: No Timed 25 foot walk: NA, the patient is non-ambulatory Assistance Required: Manual wheelchair Gait is: NA Barbie Ambulation Index (AI) score = 9 restricted to wheelchair, unable to self transfer Patient ID verified using 2 identifiers: Yes Procedure: ITB pump adjustment Current Drug: Lioresal Drug Concentration: 2000 mcg/ml Current Rate: 595 mcg/day MODE: simple continuous Rn Telephonic Residual: 24.5 ml Actual Residual: na ml Pump Refilled: No Program Change: decreased rate by 15% Drug: Lioresal Drug Concentration: 2000 mcg/ml NEW RATE: 506.1 mcg./day MODE: simple continuous Bolus Given: No Estimated HUBERT: 10 months [place] alarm date: 05/26/2018 ASSESSMENT: No change in spasticity noted after the last ITB rate decrease. Will continue to decrease his rate in preparation for pump replacement surgery with likely revision. [facility] will help decrease the ITB rate. An order was faxed for 15% rate decreases every 3-5 days down to 100mcg/day. Surgery is scheduled for 03/27/2018. Okay to use oral baclofen up to 20mg four times daily as needed. So far, this hasn't been necessary. PLAN: -decrease ITB rate by 15% -pump replacement surgery 03/27/2018 -decrease ITB rate as above -Please mail note to Timmy Perkins MD. -Please fax note to [facility]; ATTN: Leeanne Brown RN. 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 LORAZEPAM 1 MG TABLET Take 1 mg by mouth every 8 ho* ONABOTULINUMTOXINA 100 UNIT S* Inject 800 Units intramuscula* SENNOSIDES 8.8 MG/5 ML SYRUP Take 5 mL by mouth once daily* LACTULOSE 10 GRAM/15 ML ORAL * Take 7.5 g by mouth once keshav* POTASSIUM CHLORIDE 20 MEQ/15 * Take 20 mEq by mouth once jenni* BACLOFEN 2,000 MCG/ML INTRATH* [employer]onic Refill Kit # [id number], * MICONAZOLE NITRATE 2 % TOPICA* Apply 1 application to affect* Patient taking differently: Apply 1 application to affect* POLYETHYLENE GLYCOL 3350 17 G* 1 Packet once daily. COMPOUNDED PRESCRIPTION Jevity 1.2: 40 ml/hr for 24 h* Patient taking differently: Jevity 1.0: 40 ml/hr for 24 h* PANTOPRAZOLE ORAL LIQUID 40 M* 20 mg by PEG route twice keshav* LACTOBACILL.ACIDOPHILUS (BULK* 1 capsule by PEG route once d* CETIRIZINE 10 MG TABLET Take 1 tablet by mouth once d* Patient taking differently: 10 mg by PEG route once daily. MAGNESIUM HYDROXIDE 400 MG/5 * Take 30 mL by mouth once keshav* Patient taking differently: 30 mL by PEG route once daily* PHENOBARBITAL 20 MG/5 ML (4 M* Give 15 ml twice a day. Patient taking differently: 60 mg by PEG route twice keshav* Problem List As Of Date 03/07/2018 Noted Resolved ASA CLASS III [1003] INVALID FOR* Infantile cerebral palsy (HCC) [G80.9] INVALID FOR* More... Septic shock [A41.9, R65.21] INVALID FOR*03/09/2012 More... Acute respiratory failure [J96.00] INVALID FOR*03/09/2012 More... SUMMARY [V999.95] INVALID FOR*04/11/2011 Transaminitis [R74.0] INVALID FOR*03/09/2012 More... Pancreatitis [K85.90] INVALID FOR*03/09/2012 More... Dilatation of colon [K59.39] INVALID FOR*03/09/2012 More... Upper GI bleed [K92.2] INVALID FOR*03/09/2012 More... Renal failure, acute [N17.9] INVALID FOR*03/09/2012 More... Aspiration of gastric contents [T17.910A] INVALID FOR*03/09/2012 More... More... Hypernatremia [E87.0] INVALID FOR*03/09/2012 More... Congenital quadriplegia [G80.8] INVALID FOR* Hypoxia [R09.02] INVALID FOR*03/11/2012 More... 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 Withdrawal syndrome [F19.939] INVALID FOR*12/12/2012 More... Constipation [K59.00] INVALID FOR*03/11/2012 More... Swallowing impairment [R13.10] INVALID FOR* More... Sepsis [A41.9] INVALID FOR*12/17/2012 More... Gastritis, acute [K29.00] INVALID FOR* More... Acute respiratory failure with hypoxia [J96.01] INVALID FOR*12/17/2012 More... C. difficile colitis [A04.72] INVALID FOR* More... SUMMARY [V999.95] INVALID FOR* More... Transaminitis [R74.0] INVALID FOR* Sepsis [A41.9] INVALID FOR* More... Hyperthermia [R50.9] INVALID FOR* More... Seizures (HCC) [R56.9] INVALID FOR* More... Constipation [K59.00] INVALID FOR* More... Vomiting [R11.10] INVALID FOR* More... Skin rash [R21] INVALID FOR* More... Post-op pain [G89.18] INVALID FOR* More... DVT prophylaxis [SNR1980] INVALID FOR* More... Clostridium difficile infection [B96.89] INVALID FOR* More... Chronic constipation [K59.09] INVALID FOR* More... Congenital cerebral palsy (HCC) [G80.9] INVALID FOR* More... Recurrent aspiration pneumonia (HCC) [J69.0] INVALID FOR* More... SUMMARY INVALID FOR* More... Hyponatremia [E87.1] INVALID FOR* More... More... Hematemesis [K92.0] INVALID FOR* More... On tube feeding diet [Z78.9] INVALID FOR* More... Spasticity [R25.2] INVALID FOR* More... Follow-up and Disposition History Recorded Encounter Status:Closed by ALEJANDRINA GARCIA PA-C on 03/07/18 PROGRESS Observed: 03/07/2018 Status: COMPLETED Source: [place] 2:06 PM [facility] REPOSITORY HNO ID: [id number] Author: Jason Roberts MS Service: (none) Author Type: (none) Type: Progress Notes Filed: 03/07/2018 2:57 PM Note Text: BOTULINUM TOXIN THERAPY - Informed consent was signed on 08/03/12 The patient was accompanied by his parents and Morenita rhoades. Mom (Brice) and Dad also present Iker Roberts, Medical Student examined the patient under my direct supervision. I examined the patient myself and discussed findings. Current complaints / history since last visit: Mr. Michael was last seen in the spasticity clinic for botulinum toxin injections on 11/22/17. The patient's mother reports no issues in terms of botox. Botox was effective per patient's mother. Hands more open, arms lose outwards more, much easier to take care of him - easier to bathe and change. January: he had pneumonia, hospitalized for 5 days, but recovery was fine and treated with antibiotics. There is a malfunction with his baclofen pump. He is scheduled for surgery on 04/01/18. He will be seeing Miladis Garcia PA-C today for another rate decrease. BT therapy effective? Yes, definitely Duration of benefit: 2 1/2 months BT therapy well tolerated? Yes Spasm scale: One or two on the sides of right leg, after lowered th baclofen dose in January Pain related to spasticity: No 0 on a scale of 0 to 10 per mother Nutritional concerns: Yes, dysphagia, predominantly receiving nutrition via G-tube, still on supplemental nutrition, max of 4 cans of Nutren/day, appetite- watches eating, seems to like to taste had bit of mouth feeding on his birthday (little bit of birthday cake and drop of scotch), weight stable, lbs (vs. 171 lb at last visit) partially due to swelling Driving issues: N/A does not drive Safety concerns regarding living situations and safety at home: No, he lives with his parents. They live in a ranch home with a basement. There is an elevator. His parents are his primary care givers comes in two days per week. Current wheelchair is four years old since 04/2014. He requires total assistance with ADLs and IADLs; this is provided by family and home care. Risk of falls: N/A, transfers with maximal assistance or via Juanita lift. Examination: Pitting edema noted in both upper and lower extremities. Strength: Unable to assess formally. ? Spasticity Right Left Shoulder 2 2 Elbow fl/ext 0 / 0 0 / 0 Wrist fl/ext 3 / 0 0 / 0 Finger fl/ext 1+ / 0 0 / 0 Hip adductors 0 0 Knee extensors 2 0 Knee flexors 0 0 Ankle plantarflexors 0 0 Modified Luis Scale 0 - No increase in tone 1 - Slight increase in tone (catch and release at end of ROM) 1+ - Slight increase in tone, manifested by a catch, followed by minimal resistance throughout remainder (less than half of ROM) 2 - Marked increase in tone through most of the ROM, but affected part(s) easily moved 3 - Considerable increase in tone; passive movement difficult 4 - Affected part(s) rigid in flexion or extension SPASMS observed: RUE: No LUE: No RLE: No LLE: No Timed 25 foot walk: N/A Assistance Required: wheelchair Gait is: N/A A.I.: 9 - Restricted to wheelchair, dependent for transfers Informed consent was signed on 07/03/12 Procedure: Botulinum Toxin injections Pt ID verified with patient with 2 identifiers: Yes Procedure verified with patient's parents: Yes Procedure confirmed with physician and work station support specialist: Yes Personnel involved in the procedure: Physician: Estefania Gonzalez MD and [employer] Attendant: Yue Huffman RN UNIVERSAL PROTOCOL / SAFETY CHECKLIST Procedure to be performed: botulinum toxin injections Sign in Communication: Completed Time Out: Team Confirms the Correct Patient, Correct Procedure, Correct Site and Site Marking, Correct Position (if applicable). Time: 2:16 PM Affirmation of Time Out: N/A Sign Out Discussion: Completed The patient was positioned sitting in his wheelchair. After skin preparation with alcohol swabs, a total dose of 600 units of Botox were injected as follows: Muscle Limb Dose Guidance Comments FDP RUE 50 units EMG 1 site FCU RUE 50 units EMG 1 site FCR RUE 50 units EMG 1 site FPL RUE 25 units EMG 1 site Adductor pollicis RUE 25 units EMG 1 site Quadriceps RLE 100 units EMG 2 sites FDP LUE 50 units EMG 1 site FCU LUE 50 units EMG 1 site FCR LUE 50 units EMG 1 site FPL LUE 25 units EMG 1 site Adductor pollicis LUE 25 units EMG 1 site Quadriceps LLE 100 units EMG 2 sites Dilution: 100 units / 1 mL Lot #: [id number] (6 vials) Expiration date: July 2020 The injections were well tolerated. 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 Botulinum toxin injections were effective and well tolerated. We repeated botox injections today without immediate complications. We will repeat botox injections in 3 months, same muscles and total dose of 600 units. He is to continue to perform stretching exercises daily. Plan: 1 - Repeat injections in 3 months, 600 units. 2 - Continue stretching exercises daily. 3 - Fax note to Timmy Perkins MD Time spent with patient: 45 mn. Estefania Gonzalez MD CNOV Observed: 03/07/2018 Status: COMPLETED Source: [place] 1:45 PM [facility] REPOSITORY Office Visit ([facility]) KRISS MICHAEL ([id number]) 1980 M Date Time Provider Department 03/07/18 1:45 PM ESTEFANIA GONZALEZ During your visit today, we recorded the following information about you: Estefania Gonzalez MD 03/07/2018 7:24 AM Signed You have received botulinum toxin injections today. The skin around the site of injections should be monitored for a couple of days. If redness or swelling occur, the skin should be examined by a health child care development specialist to rule out infection. If you experience pain in the muscles injected over the next few days, you can take Tylenol to control the pain (unless contra-indicated). Please call our office at [phone] with any questions or concerns. MD Jason Spicer MS 03/07/2018 2:13 PM Signed BOTULINUM TOXIN THERAPY - Informed consent was signed on 08/03/12 The patient was accompanied by his parents and aideMorenita. Mom (Brice) and Dad also present Iker Roberts, Medical Student examined the patient under my direct supervision. I examined the patient myself and discussed findings. Current complaints / history since last visit: Mr. Michael was last seen in the spasticity clinic for botulinum toxin injections on 11/22/17. The patient's mother reports no issues in terms of botox. Botox was effective per patient's mother. Hands more open, arms lose outwards more, much easier to take care of him - easier to bathe and change. January: he had pneumonia, hospitalized for 5 days, but recovery was fine and treated with antibiotics. There is a malfunction with his baclofen pump. He is scheduled for surgery on 04/01/18. He will be seeing Miladis Garcia PA-C today for another rate decrease. BT therapy effective? Yes, definitely Duration of benefit: 2 1/2 months BT therapy well tolerated? Yes Spasm scale: One or two on the sides of right leg, after lowered th baclofen dose in January Pain related to spasticity: No 0 on a scale of 0 to 10 per mother Nutritional concerns: Yes, dysphagia, predominantly receiving nutrition via G-tube, still on supplemental nutrition, max of 4 cans of Nutren/day, appetite- watches eating, seems to like to taste had bit of mouth feeding on his birthday (little bit of birthday cake and drop of scotch), weight stable, lbs (vs. 171 lb at last visit) partially due to swelling Driving issues: N/A does not drive Safety concerns regarding living situations and safety at home: No, he lives with his parents. They live in a ranch home with a basement. There is an elevator. His parents are his primary care givers comes in two days per week. Current wheelchair is four years old since 04/2014. He requires total assistance with ADLs and IADLs; this is provided by family and home care. Risk of falls: N/A, transfers with maximal assistance or via Juanita lift. Examination: Pitting edema noted in both upper and lower extremities. Strength: Unable to assess formally. ? Spasticity Right Left Shoulder 2 2 Elbow fl/ext 0 / 0 0 / 0 Wrist fl/ext 3 / 0 0 / 0 Finger fl/ext 1+ / 0 0 / 0 Hip adductors 0 0 Knee extensors 2 0 Knee flexors 0 0 Ankle plantarflexors 0 0 Modified Luis Scale 0 - No increase in tone 1 - Slight increase in tone (catch and release at end of ROM) 1+ - Slight increase in tone, manifested by a catch, followed by minimal resistance throughout remainder (less than half of ROM) 2 - Marked increase in tone through most of the ROM, but affected part(s) easily moved 3 - Considerable increase in tone; passive movement difficult 4 - Affected part(s) rigid in flexion or extension SPASMS observed: RUE: No LUE: No RLE: No LLE: No Timed 25 foot walk: N/A Assistance Required: wheelchair Gait is: N/A A.I.: 9 - Restricted to wheelchair, dependent for transfers Informed consent was signed on 07/03/12 Procedure: Botulinum Toxin injections Pt ID verified with patient with 2 identifiers: Yes Procedure verified with patient's parents: Yes Procedure confirmed with physician and work station support specialist: Yes Personnel involved in the procedure: Physician: Estefania Gonzalez MD and [employer], [employer] Attendant: Yue Huffman RN UNIVERSAL PROTOCOL / SAFETY CHECKLIST Procedure to be performed: botulinum toxin injections Sign in Communication: Completed Time Out: Team Confirms the Correct Patient, Correct Procedure, Correct Site and Site Marking, Correct Position (if applicable). Time: 2:16 PM Affirmation of Time Out: N/A Sign Out Discussion: Completed The patient was positioned sitting in his wheelchair. After skin preparation with alcohol swabs, a total dose of 600 units of Botox were injected as follows: Muscle Limb Dose Guidance Comments FDP RUE 50 units EMG 1 site FCU RUE 50 units EMG 1 site FCR RUE 50 units EMG 1 site FPL RUE 25 units EMG 1 site Adductor pollicis RUE 25 units EMG 1 site Quadriceps RLE 100 units EMG 2 sites FDP LUE 50 units EMG 1 site FCU LUE 50 units EMG 1 site FCR LUE 50 units EMG 1 site FPL LUE 25 units EMG 1 site Adductor pollicis LUE 25 units EMG 1 site Quadriceps LLE 100 units EMG 2 sites Dilution: 100 units / 1 mL Lot #: [id number] (6 vials) Expiration date: July 2020 The injections were well tolerated. 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 Botulinum toxin injections were effective and well tolerated. We repeated botox injections today without immediate complications. We will repeat botox injections in 3 months, same muscles and total dose of 600 units. He is to continue to perform stretching exercises daily. Plan: 1 - Repeat injections in 3 months, 600 units. 2 - Continue stretching exercises daily. 3 - Fax note to Timmy Perkins MD Time spent with patient: 45 mn. Estefania Gonzalez MD Referring Provider: ISSA PADRON [[id number]] Allergies As of Date: 03/07/2018 Noted Allergy Reaction CODEINE 06/22/2005 14 - Other: See Comments Comments: hyperactivity per mom FLAGYL (METRONIDAZOLE HCL) 05/08/2014 2 - Rash MORPHINE 06/22/2005 14 - Other: See Comments Comments: causes hyperactivity per mom PROPULSID 02/08/2012 2 - Rash Date Reviewed: 03/07/2018 Reviewed by: Estefania Gonzalez - Fully Assessed Reason for Visit: Spasticity [487] Botulinum Toxin injections [Other] Primary Visit Diagnosis:Infantile cerebral palsy (HCC) [G80.9] Other Visit Diagnosis:Spastic quadriparesis, congenital (HCC) [G80.0] Prescriptions as of 03/07/2018 Sig: BACLOFEN 20 MG TABLET 1 tablet three times daily as* FUROSEMIDE 20 MG TABLET 20 mg by PEG route once daily. LORAZEPAM 1 MG TABLET Take 1 mg by mouth every 8 ho* ONABOTULINUMTOXINA 100 UNIT S* Inject 800 Units intramuscula* SENNOSIDES 8.8 MG/5 ML SYRUP Take 5 mL by mouth once daily* LACTULOSE 10 GRAM/15 ML ORAL * Take 7.5 g by mouth once keshav* POTASSIUM CHLORIDE 20 MEQ/15 * Take 20 mEq by mouth once jenni* BACLOFEN 2,000 MCG/ML INTRATH* Medtronic Refill Kit # 8566, * MICONAZOLE NITRATE 2 % TOPICA* Apply 1 application to affect* Patient taking differently: Apply 1 application to affect* POLYETHYLENE GLYCOL 3350 17 G* 1 Packet once daily. COMPOUNDED PRESCRIPTION Jevity 1.2: 40 ml/hr for 24 h* Patient taking differently: Jevity 1.0: 40 ml/hr for 24 h* PANTOPRAZOLE ORAL LIQUID 40 M* 20 mg by PEG route twice keshav* LACTOBACILL.ACIDOPHILUS (BULK* 1 capsule by PEG route once d* CETIRIZINE 10 MG TABLET Take 1 tablet by mouth once d* Patient taking differently: 10 mg by PEG route once daily. MAGNESIUM HYDROXIDE 400 MG/5 * Take 30 mL by mouth once keshav* Patient taking differently: 30 mL by PEG route once daily* PHENOBARBITAL 20 MG/5 ML (4 M* Give 15 ml twice a day. Patient taking differently: 60 mg by PEG route twice keshav* Problem List As Of Date 03/07/2018 Noted Resolved ASA CLASS III [1003] INVALID FOR* Infantile cerebral palsy (HCC) [G80.9] INVALID FOR* More... Septic shock [A41.9, R65.21] INVALID FOR*03/09/2012 More... Acute respiratory failure [J96.00] INVALID FOR*03/09/2012 More... SUMMARY [V999.95] INVALID FOR*04/11/2011 Transaminitis [R74.0] INVALID FOR*03/09/2012 More... Pancreatitis [K85.90] INVALID FOR*03/09/2012 More... Dilatation of colon [K59.39] INVALID FOR*03/09/2012 More... Upper GI bleed [K92.2] INVALID FOR*03/09/2012 More... Renal failure, acute [N17.9] INVALID FOR*03/09/2012 More... Aspiration of gastric contents [T17.910A] INVALID FOR*03/09/2012 More... More... Hypernatremia [E87.0] INVALID FOR*03/09/2012 More... Congenital quadriplegia [G80.8] INVALID FOR* Hypoxia [R09.02] INVALID FOR*03/11/2012 More... 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 Withdrawal syndrome [F19.939] INVALID FOR*12/12/2012 More... Constipation [K59.00] INVALID FOR*03/11/2012 More... Swallowing impairment [R13.10] INVALID FOR* More... Sepsis [A41.9] INVALID FOR*12/17/2012 More... Gastritis, acute [K29.00] INVALID FOR* More... Acute respiratory failure with hypoxia [J96.01] INVALID FOR*12/17/2012 More... C. difficile colitis [A04.72] INVALID FOR* More... SUMMARY [V999.95] INVALID FOR* More... Transaminitis [R74.0] INVALID FOR* Sepsis [A41.9] INVALID FOR* More... Hyperthermia [R50.9] INVALID FOR* More... Seizures (HCC) [R56.9] INVALID FOR* More... Constipation [K59.00] INVALID FOR* More... Vomiting [R11.10] INVALID FOR* More... Skin rash [R21] INVALID FOR* More... Post-op pain [G89.18] INVALID FOR* More... DVT prophylaxis [DDB2551] INVALID FOR* More... Clostridium difficile infection [B96.89] INVALID FOR* More... Chronic constipation [K59.09] INVALID FOR* More... Congenital cerebral palsy (HCC) [G80.9] INVALID FOR* More... Recurrent aspiration pneumonia (HCC) [J69.0] INVALID FOR* More... SUMMARY INVALID FOR* More... Hyponatremia [E87.1] INVALID FOR* More... More... Hematemesis [K92.0] INVALID FOR* More... On tube feeding diet [Z78.9] INVALID FOR* More... Spasticity [R25.2] INVALID FOR* More... Other instructions from your clinician: You have received botulinum toxin injections today. The skin around the site of injections should be monitored for a couple of days. If redness or swelling occur, the skin should be examined by a health child care development specialist to rule out infection. If you experience pain in the muscles injected over the next few days, you can take Tylenol to control the pain (unless contra-indicated). Please call our office at [phone] with any questions or concerns. Estefania Gonzalez MD Disposition: Return in about 3 months (around 06/05/2018) for Repeat botox injections in 3 months. Follow-up and Disposition History Recorded Encounter Status:Closed by ESTEFANIA GONZALEZ MD on 03/07/18 PROGRESS Observed: 03/07/2018 Status: COMPLETED Source: [place] 12:53 PM [facility] REPOSITORY HNO ID: [id number] Author: Alejandrina Garcia (Pa) Service: (none) Author Type: Physician Executive Steward Type: Progress Notes Filed: 03/07/2018 4:02 PM Note Text: INTRATHECAL BACLOFEN FOLLOW-UP AND REFILL RECORD Written consent for ITB therapy obtained on 08/03/2012. Patient accompanied by parents PAST SURGICAL HISTORY Procedure Laterality Date - BACLOFEN PUMP REFILL AND MAINT 1999 intrathecal - IMPLANT/REPLACE IT PROGR PUMP 03/08/12 Replacement due to end of battery life, SynchroMed II, 40 ml pump - MIDLINE INSERTION/CONSULT 11/27/2014 - PEG TUBE - SPECIFY since age 15 HISTORY SINCE LAST VISIT: -Spasticity: At the last visit, it was attempted to access his pump catheter port for troubleshooting. Unfortunately, there was difficulty finding the port. It was decided to schedule pump replacement surgery (HUBERT is 10 months) and look for a catheter malfunction during that time. Because a malfunction is suspected, the ITB rate is being gradually decreased. The pump rate was decreased by 10% at the last visit. There's been no change in spasticity since the last pump rate decrease. Use of oral medications for spasticity: occasional use of oral baclofen or Ativan. Hasn't been given since the last visit SPASM SCALE (patient report): Occasional spasms Pain related to spasticity or spasms: No pain per mother Is the patient having any pain? No 0 on a scale of 0 to 10 Safety concerns: domestic violence, living situation, and safety at home: no; has IO waiver through [facility] board of DD; 2 aides one day a wk each, also care agency sends aides. Driving issues: NA Risk of Falls: NA Exercise/stretching: Performs stretching exercises twice daily Sleep disturbance: Varies per patients, occasional difficulties Mood: Good Bowel symptoms: Constipation, with MOM; on a regular bowel medication regimen Bladder symptoms: no recent UTI Nutrition: has PEG Tube since 1993; tube feeding Skin Integrity: Intact EXAM: Position: Sitting Motor Function: Strength: No volitional movement in LEs Spasticity Right Left Shoulder 2 1+ Elbow fl/ext 1 / 1 1 / 2 Wrist fl/ext 2 / 0 1 / 0 Finger fl/ext 2 / 0 1 / 0 Hip adductors 2 2 Knee extensors 2 2 Knee flexors 2 0 Ankle plantarflexors 0 0 *Contractures noted in bilateral knee extensors MODIFIED LUIS SCALE 0 - No increase in tone 1 - Slight increase in tone (catch and release at end of ROM) 1+ - Slight increase in tone, manifested by a catch, followed by minimal resistance throughout remainder (less than half of ROM) 2 - Marked increase in tone through most of the ROM, but affected part(s) easily moved 3 - Considerable increase in tone; passive movement difficult 4 - Affected part(s) rigid in flexion or extension SPASMS observed: Rt: No Lt: No Timed 25 foot walk: NA, the patient is non-ambulatory Assistance Required: Manual wheelchair Gait is: NA Linganore Ambulation Index (AI) score = 9 restricted to wheelchair, unable to self transfer Patient ID verified using 2 identifiers: Yes Procedure: ITB pump adjustment Current Drug: Lioresal Drug Concentration: 2000 mcg/ml Current Rate: 595 mcg/day MODE: simple continuous Rn Telephonic Residual: 24.5 ml Actual Residual: na ml Pump Refilled: No Program Change: decreased rate by 15% Drug: Lioresal Drug Concentration: 2000 mcg/ml NEW RATE: 506.1 mcg./day MODE: simple continuous Bolus Given: No Estimated HUBERT: 10 months [place] alarm date: 05/26/2018 ASSESSMENT: No change in spasticity noted after the last ITB rate decrease. Will continue to decrease his rate in preparation for pump replacement surgery with likely revision. [facility] will help decrease the ITB rate. An order was faxed for 15% rate decreases every 3-5 days down to 100mcg/day. Surgery is scheduled for 03/27/2018. Okay to use oral baclofen up to 20mg four times daily as needed. So far, this hasn't been necessary. PLAN: -decrease ITB rate by 15% -pump replacement surgery 03/27/2018 -decrease ITB rate as above -Please mail note to Timmy Perkins MD. -Please fax note to [facility]; ATTN: Leeanne Brown RN. F/U: ; alarm date 05/26/2018 JOSE Urias Observed: 03/02/2018 Status: COMPLETED Source: [place] 9:45 AM [facility] REPOSITORY [facility] ROJELIOKRISS Alvarez ([id number]) 1980 M Date Time Provider Department 03/02/18 9:45 AM ALEJANDRINA GARCIA (PA) During your visit today, we recorded the following information about you: Alejandrina Garcia PA-C 03/02/2018 12:47 PM Signed INTRATHECAL BACLOFEN FOLLOW-UP AND REFILL RECORD Written consent for ITB therapy obtained on 08/03/2012. Patient accompanied by parents PAST SURGICAL HISTORY Procedure Laterality Date - BACLOFEN PUMP REFILL AND MAINT 1999 intrathecal - IMPLANT/REPLACE IT PROGR PUMP 03/08/12 Replacement due to end of battery life, SynchroMed II, 40 ml pump - MIDLINE INSERTION/CONSULT 11/27/2014 - PEG TUBE - SPECIFY since age 15 HISTORY SINCE LAST VISIT: -Spasticity: There's been a history of volume discrepancy during refills reported by his home nurse, Leeanne. At the last visit, the residual volume was over 50% the expected. The ITB rate is being decreased in preparation for pump replacement surgery. Neurosurgery has requested to access the catheter in the office. Spasticity is unchanged since the rate has been decreased. Use of oral medications for spasticity: occasional use of oral baclofen or Ativan. None recently. The last time they used it, Adrian was also being treated for pneumonia. SPASM SCALE (patient report): Occasional spasms Pain related to spasticity or spasms: No pain per mother Is the patient having any pain? No 0 on a scale of 0 to 10 Safety concerns: domestic violence, living situation, and safety at home: no; has IO waiver through state board of DD; 2 aides one day a wk each, also care agency sends aides. Driving issues: NA Risk of Falls: NA Exercise/stretching: Performs stretching exercises twice daily Sleep disturbance: Varies per patients, occasional difficulties Mood: Good Bowel symptoms: Constipation, with MOM; on a regular bowel medication regimen Bladder symptoms: no recent UTI Nutrition: has PEG Tube since 1993; tube feeding Skin Integrity: Intact EXAM: Position: Sitting Motor Function: Strength: No volitional movement in LEs Spasticity Right Left Shoulder 2 1+ Elbow fl/ext 1 / 1 1 / 2 Wrist fl/ext 2 / 0 1 / 0 Finger fl/ext 2 / 0 1 / 0 Hip adductors 2 2 Knee extensors 2 2 Knee flexors 2 0 Ankle plantarflexors 0 0 *Contractures noted in bilateral knee extensors MODIFIED LUIS SCALE 0 - No increase in tone 1 - Slight increase in tone (catch and release at end of ROM) 1+ - Slight increase in tone, manifested by a catch, followed by minimal resistance throughout remainder (less than half of ROM) 2 - Marked increase in tone through most of the ROM, but affected part(s) easily moved 3 - Considerable increase in tone; passive movement difficult 4 - Affected part(s) rigid in flexion or extension SPASMS observed: Rt: No Lt: No Timed 25 foot walk: NA, the patient is non-ambulatory Assistance Required: Manual wheelchair Gait is: NA Barbie Ambulation Index (AI) score = 9 restricted to wheelchair, unable to self transfer Patient ID verified using 2 identifiers: Yes Procedure: ITB catheter access The skin over the pump in the RLQ was prepped and draped in sterile fashion. The pump's catheter port was accessed using the needle included in the Dragon Ports catheter access kit. At one point, 2ml of yellow cloudy material was aspirated, but I'm unable to say with confidence that I was in the catheter port. After multiple attempts by both Dr. Padron and me, we were unable to access the port. The skin was cleaned and a bandage was placed over the site. Current Drug: Lioresal Drug Concentration: 2000 mcg/ml Current Rate: 660 mcg/day MODE: simple continuous Rn Telephonic Residual: 26 ml Actual Residual: na ml Pump Refilled: No Program Change: decreased rate by 10% Drug: Lioresal Drug Concentration: 2000 mcg/ml NEW RATE: 595 mcg./day MODE: simple continuous Bolus Given: No Estimated HUBERT: 10 months [place] alarm date: 05/14/2018 ASSESSMENT: No diagnosis found. There is an ongoing volume discrepancy during pump refills that has gradually increased to over 50%, along with increased tone, suggesting the pump is not functioning properly. For further troubleshooting, we attempted to access the pump's catheter as described above, but we were unable to. After a discussion with neurosurgery, it was decided to forego additional troubleshooting and schedule for the pump to be replaced and revised if needed. The ITB rate was decreased by 10% in preparation for this. The patient will be back next week for botox injections, and I will decrease his rate again the same day. PLAN: -decrease ITB rate by 10% -schedule pump replacement surgery -follow up next week for additional rate decrease -Please mail note to Timmy Perkins MD. -Please fax note to [facility]; ATTN: Leeanne Brown RN. F/U: ITB f/u add to Garcia for Wednesday05/05/2018 at 2:30pm; alarm date 05/14/2018 Alejandrina Garcia PA-C Referring Provider: SELF [[id number]] Allergies As of Date: 03/02/2018 Noted Allergy Reaction CODEINE 06/22/2005 14 - Other: See Comments Comments: hyperactivity per mom FLAGYL (METRONIDAZOLE HCL) 05/08/2014 2 - Rash MORPHINE 06/22/2005 14 - Other: See Comments Comments: causes hyperactivity per mom PROPULSID 02/08/2012 2 - Rash Date Reviewed: 03/02/2018 Reviewed by: Alejandrina Garcia (Pa) - Fully Assessed Primary Visit Diagnosis:Congenital cerebral palsy (HCC) [G80.9] Prescriptions as of 03/02/2018 Sig: BACLOFEN 20 MG TABLET 1 tablet three times daily as* FUROSEMIDE 20 MG TABLET 20 mg by PEG route once daily. LORAZEPAM 1 MG TABLET Take 1 mg by mouth every 8 ho* ONABOTULINUMTOXINA 100 UNIT S* Inject 800 Units intramuscula* SENNOSIDES 8.8 MG/5 ML SYRUP Take 5 mL by mouth once daily* LACTULOSE 10 GRAM/15 ML ORAL * Take 7.5 g by mouth once keshav* POTASSIUM CHLORIDE 20 MEQ/15 * Take 20 mEq by mouth once jenni* BACLOFEN 2,000 MCG/ML INTRATH* Medtronic Refill Kit # 8566, * MICONAZOLE NITRATE 2 % TOPICA* Apply 1 application to affect* Patient taking differently: Apply 1 application to affect* POLYETHYLENE GLYCOL 3350 17 G* 1 Packet once daily. COMPOUNDED PRESCRIPTION Jevity 1.2: 40 ml/hr for 24 h* Patient taking differently: Jevity 1.0: 40 ml/hr for 24 h* PANTOPRAZOLE ORAL LIQUID 40 M* 20 mg by PEG route twice keshav* LACTOBACILL.ACIDOPHILUS (BULK* 1 capsule by PEG route once d* CETIRIZINE 10 MG TABLET Take 1 tablet by mouth once d* Patient taking differently: 10 mg by PEG route once daily. MAGNESIUM HYDROXIDE 400 MG/5 * Take 30 mL by mouth once keshav* Patient taking differently: 30 mL by PEG route once daily* PHENOBARBITAL 20 MG/5 ML (4 M* Give 15 ml twice a day. Patient taking differently: 60 mg by PEG route twice keshav* Problem List As Of Date 03/02/2018 Noted Resolved ASA CLASS III [1003] INVALID FOR* Infantile cerebral palsy (HCC) [G80.9] INVALID FOR* More... Septic shock [A41.9, R65.21] INVALID FOR*03/09/2012 More... Acute respiratory failure [J96.00] INVALID FOR*03/09/2012 More... SUMMARY [V999.95] INVALID FOR*04/11/2011 Transaminitis [R74.0] INVALID FOR*03/09/2012 More... Pancreatitis [K85.90] INVALID FOR*03/09/2012 More... Dilatation of colon [K59.39] INVALID FOR*03/09/2012 More... Upper GI bleed [K92.2] INVALID FOR*03/09/2012 More... Renal failure, acute [N17.9] INVALID FOR*03/09/2012 More... Aspiration of gastric contents [T17.910A] INVALID FOR*03/09/2012 More... More... Hypernatremia [E87.0] INVALID FOR*03/09/2012 More... Congenital quadriplegia [G80.8] INVALID FOR* Hypoxia [R09.02] INVALID FOR*03/11/2012 More... 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 Withdrawal syndrome [F19.939] INVALID FOR*12/12/2012 More... Constipation [K59.00] INVALID FOR*03/11/2012 More... Swallowing impairment [R13.10] INVALID FOR* More... Sepsis [A41.9] INVALID FOR*12/17/2012 More... Gastritis, acute [K29.00] INVALID FOR* More... Acute respiratory failure with hypoxia [J96.01] INVALID FOR*12/17/2012 More... C. difficile colitis [A04.72] INVALID FOR* More... SUMMARY [V999.95] INVALID FOR* More... Transaminitis [R74.0] INVALID FOR* Sepsis [A41.9] INVALID FOR* More... Hyperthermia [R50.9] INVALID FOR* More... Seizures (HCC) [R56.9] INVALID FOR* More... Constipation [K59.00] INVALID FOR* More... Vomiting [R11.10] INVALID FOR* More... Skin rash [R21] INVALID FOR* More... Post-op pain [G89.18] INVALID FOR* More... DVT prophylaxis [GSF5153] INVALID FOR* More... Clostridium difficile infection [B96.89] INVALID FOR* More... Chronic constipation [K59.09] INVALID FOR* More... Congenital cerebral palsy (HCC) [G80.9] INVALID FOR* More... Recurrent aspiration pneumonia (HCC) [J69.0] INVALID FOR* More... SUMMARY INVALID FOR* More... Hyponatremia [E87.1] INVALID FOR* More... More... Hematemesis [K92.0] INVALID FOR* More... On tube feeding diet [Z78.9] INVALID FOR* More... Disposition: Return for ITB f/u add to Jeremy for Wednesday05/05/2018 at 2:30pm; alarm date 05/14/2018. Follow-up and Disposition History Recorded Encounter Status:Closed by ALEJANDRINA GARCIA PA-C on 03/02/18 PROGRESS Observed: 03/02/2018 Status: COMPLETED Source: [place] 8:51 AM [facility] REPOSITORY HNO ID: [id number] Author: Alejandrina Garcia (Pa) Service: (none) Author Type: Physician Executive Steward Type: Progress Notes Filed: 03/02/2018 12:47 PM Note Text: INTRATHECAL BACLOFEN FOLLOW-UP AND REFILL RECORD Written consent for ITB therapy obtained on 08/03/2012. Patient accompanied by parents PAST SURGICAL HISTORY Procedure Laterality Date - BACLOFEN PUMP REFILL AND MAINT 2000 intrathecal - IMPLANT/REPLACE IT PROGR PUMP 03/08/12 Replacement due to end of battery life, SynchroMed II, 40 ml pump - MIDLINE INSERTION/CONSULT 11/27/2014 - PEG TUBE - SPECIFY since age 15 HISTORY SINCE LAST VISIT: -Spasticity: There's been a history of volume discrepancy during refills reported by his home nurse, Leeanne. At the last visit, the residual volume was over 50% the expected. The ITB rate is being decreased in preparation for pump replacement surgery. Neurosurgery has requested to access the catheter in the office. Spasticity is unchanged since the rate has been decreased. Use of oral medications for spasticity: occasional use of oral baclofen or Ativan. None recently. The last time they used it, Adrian was also being treated for pneumonia. SPASM SCALE (patient report): Occasional spasms Pain related to spasticity or spasms: No pain per mother Is the patient having any pain? No 0 on a scale of 0 to 10 Safety concerns: domestic violence, living situation, and safety at home: no; has IO waiver through [facility] board of ; 2 aides one day a wk each, also care agency sends aides. Driving issues: NA Risk of Falls: NA Exercise/stretching: Performs stretching exercises twice daily Sleep disturbance: Varies per patients, occasional difficulties Mood: Good Bowel symptoms: Constipation, with MOM; on a regular bowel medication regimen Bladder symptoms: no recent UTI Nutrition: has PEG Tube since 1993; tube feeding Skin Integrity: Intact EXAM: Position: Sitting Motor Function: Strength: No volitional movement in LEs Spasticity Right Left Shoulder 2 1+ Elbow fl/ext 1 / 1 1 / 2 Wrist fl/ext 2 / 0 1 / 0 Finger fl/ext 2 / 0 1 / 0 Hip adductors 2 2 Knee extensors 2 2 Knee flexors 2 0 Ankle plantarflexors 0 0 *Contractures noted in bilateral knee extensors MODIFIED LUIS SCALE 0 - No increase in tone 1 - Slight increase in tone (catch and release at end of ROM) 1+ - Slight increase in tone, manifested by a catch, followed by minimal resistance throughout remainder (less than half of ROM) 2 - Marked increase in tone through most of the ROM, but affected part(s) easily moved 3 - Considerable increase in tone; passive movement difficult 4 - Affected part(s) rigid in flexion or extension SPASMS observed: Rt: No Lt: No Timed 25 foot walk: NA, the patient is non-ambulatory Assistance Required: Manual wheelchair Gait is: NA Barbie Ambulation Index (AI) score = 9 restricted to wheelchair, unable to self transfer Patient ID verified using 2 identifiers: Yes Procedure: ITB catheter access The skin over the pump in the RLQ was prepped and draped in sterile fashion. The pump's catheter port was accessed using the needle included in the [employer] catheter access kit. At one point, 2ml of yellow cloudy material was aspirated, but I'm unable to say with confidence that I was in the catheter port. After multiple attempts by both Dr. Padron and me, we were unable to access the port. The skin was cleaned and a bandage was placed over the site. Current Drug: Lioresal Drug Concentration: 2000 mcg/ml Current Rate: 660 mcg/day MODE: simple continuous Rn Telephonic Residual: 26 ml Actual Residual: na ml Pump Refilled: No Program Change: decreased rate by 10% Drug: Lioresal Drug Concentration: 2000 mcg/ml NEW RATE: 595 mcg./day MODE: simple continuous Bolus Given: No Estimated HUBERT: 10 months [place] alarm date: 05/14/2018 ASSESSMENT: No diagnosis found. There is an ongoing volume discrepancy during pump refills that has gradually increased to over 50%, along with increased tone, suggesting the pump is not functioning properly. For further troubleshooting, we attempted to access the pump's catheter as described above, but we were unable to. After a discussion with neurosurgery, it was decided to forego additional troubleshooting and schedule for the pump to be replaced and revised if needed. The ITB rate was decreased by 10% in preparation for this. The patient will be back next week for botox injections, and I will decrease his rate again the same day. PLAN: -decrease ITB rate by 10% -schedule pump replacement surgery -follow up next week for additional rate decrease -Please mail note to Timmy Perkins MD. -Please fax note to [facility]; ATTN: Leeanne Brown RN. F/U: ITB f/u add to Jeremy for Wednesday05/05/2018 at 2:30pm; alarm date 05/14/2018 Alejandrina Garcia PA-C BASIC METABOLIC Collected: 02/11/2018 Status: F Source: [place] PROFILE (BMP) 4:40 PM [facility] [place] Order Comment: Send Results To: PCP Reason for Laboratory Test Hypokalemia SEND RESULTS TO DR.DR.OFORI GREGORIO, AND CHAMP AYALA FAX RESULTS TO @[id number] TYPE CODE TESTS RESULT OUT OF RANGE REFERENCE UNITS LAB L501.0100 74-106 mg/dL Normal GLU 84 Result Comment: Please note revised GLUCOSE reference range effective 2017. LAB L501.1000 7-18 mg/dL Normal BUN 11 LAB L501.1100 0.70-1.30 mg/dL Low CREAT,SERUM 0.32 Result Comment: The validity of the calculated GFR AND GFRAA in patients over 70 years has not been determined. Clinical correlation is essential. LAB L501.1110 >60 mL/min Normal EST GFR 337 Result Comment: Non- GFR Calc LAB L501.1115 >60 mL/min Normal EST GFR - AA 408 Result Comment: GFR Calc LAB L501.1300 10-20 RATIO High BUN/CRE 34.6 LAB L501.2200 8.5-10.1 mg/dL CA Normal 8.7 LAB L501.5300 136-145 mmol/L NA Normal 142 LAB L501.5600 3.5-5.1 mmol/L K Normal 3.8 LAB L501.5900 98-107 mmol/L CL Normal 106 LAB L501.6100 21.0-32.0 mmol/L Normal CO2 28.0 LAB L501.6200 5-15 Normal GAP 8 Performed By: #### L500.2500 #### [facility] [address] [place], [address] DISCHARGE SUMMARY Observed: 02/08/2018 Status: F Source: [place] 3:02 PM [facility] [place] [facility] Medical Records Department [address] [place] [address] Discharge Summary 02/08/18 1441 MR#: [id number] Acct: [id number] Name: KRISS MICHAEL Rep #: [id number] : 1980 38 From: Paul OAKES PCP: Timmy Perkins MD Status: ADM IN Y Location: [place] [address] <Paul Jackson - Last Filed: 02/08/18 14:41> Discharge Date and Diagnosis - Problem List Patient Problems: Active and Suspected Problems (Last Reviewed 09/16/17 @ 17:51 by Torey James DO) Acute respiratory failure with hypoxia (Acute) Date of Admission: 02/04/18 Date of Discharge: 02/08/18 - Primary Discharge Diagnosis Active and Suspected Problems (Last Reviewed 09/16/17 @ 17:51 by Torey James DO) Acute respiratory failure with hypoxia (Acute) 2/2 Recurrent aspiration pna Chronic hypoxic respiratory failure Cerebral palsy Nonverbal Chronic LE edema Presence of G tube Presence of Baclofen pump Chronic constipation Chronic anemia Hx Seizures - Secondary Discharge Diagnosis Chronic Problems (Last Updated 02/05/18 @ 13:59 by Gumaro Kohli MD) Nonrheumatic mitral valve prolapse (Chronic) C. 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 Bilateral pulmonary infiltrates consider atelectasis and/or edema. RAD/Abdomen Single View (Portable) IMPRESSION: Findings are most consistent with ileus. RAD/Chest PA and Lateral IMPRESSION: 1. Favorable change with decreased pulmonary infiltrates. 2. Hypoinflation with persistent bibasilar atelectasis. Trace bilateral pleural effusions. Operations: None Procedures: None Summary of Care Provided: Hospital course: The patient is a 38 year old M with pmhx of cerebral palsy, multiple episodes of aspiration pna, chronic constipation, chronic normocytic anemia, history of seizure disorder, who presented to the emergency room with increased spasticity and fever at home. He did have a fever in the ER, he was hypoxic on 4 L of oxygen. He only uses oxygen normally at night at home. He was also tachycardic and had presence of pneumonia on chest i-sli-xtgcnsmic. This felt that he likely had another episode of aspiration pneumonia. He was admitted to the PCU for acute sepsis secondary to aspiration pneumonia. He was placed on Unasyn and azithromycin. Patient receives his feedings via a G-tube which was initially maintained. He had an episode of nausea and vomiting with presumed aspiration and these were temporarily discontinued. His condition improved we gradually reintroduce his tube feeds without issue. He had resolution of his fevers and normalization of all of his vital signs. Blood cultures were negative. Urine antigens were negative. His urine culture did show enterococcus and corynebacterium however the significance of this with respect to his pneumonia is unclear. His respiratory panel was negative. His family desired to take him home as there is full-time caregivers. He was transitioned to G-tube liquid Augmentin. He will complete a total of 10 days of therapy for this. He will need to follow-up tomorrow with his surgeon as they are going to redo his baclofen pump that has not been working lately. He otherwise will need to follow-up with his PCP in 1-2 weeks. He was discharged home in stable condition. This patient was seen by Paul Jackson PA-C under the supervision of Doctor Posadas. [] Patient Problems: Active and Suspected Problems (Last Reviewed 09/16/17 @ 17:51 by Torey James DO) Acute respiratory failure with hypoxia (Acute) - Physical Exam General: Alert, Oriented x3, Cooperative HEENT: Atraumatic, PERRLA, EOMI, Normocephalic Neck: Supple, No JVD, Negative Carotid Bruits Lungs: Diminished Cardiovascular: Regular rate, No murmurs Abdomen: Bowel Sounds Present, Soft, Non Tender Extremities: No edema, Capillary Refill Less than 3 Seconds Skin: No rashes, No breakdown Musculoskeletal: No Tenderness to Palpation of Joints or Extremities Neurological: Cranial nerves II-XII grossly intact Psych/Mental Status: Normal Affect, Appropriate Vital Signs Temp Pulse Resp BP Pulse Ox 99.5 F H 86 18 139/88 H 93 02/08/18 08:15 02/08/18 14:00 02/08/18 14:00 02/08/18 08:15 02/08/18 08:15 Oxygen Flow Rate (L/min) 1.5 Oxygen Delivery Method Nasal Cannula Weight: 171 lb 11.841 oz Body Mass Index (BMI) 33.5 Intake and Output for Last 24 Hours Intake Total 1711 / 1711 840 / 840 1239 / 1239 Output Total 620 / 620 500 / 500 400 / 400 Balance 1091 / 1091 340 / 340 839 / 839 Microbiology Past 72 Hours 02/04/18 17:25 Urine Culture - Final Urine, Catheterized Enterococcus faecalis 02/04/18 16:45 Blood Culture - Preliminary Blood Culture (Wb) - Left Hand No growth in 48 hours. 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 Discharge Activity: Return to Normal Activity Home Medications: Medications to take at Discharge Simethicone 40MG/0.6ML [Mylicon] 40 mg GT TID 11/09/13 Pantoprazole Sodium [Protonix] 20 ml GT BID 08/09/14 Senna/Docusate Sodium 5 ml GT PRN PRN 08/03/15 Polyethylene Glycol 3350 [Miralax] 17 gm GT DAILY 08/30/15 Magnesium Hydroxide [Milk Of Magnesia] 35 - 50 ml GT DAILY PRN PRN 12/20/15 Metoclopramide [Reglan Solution] 5 mg GT TID 12/20/15 Lactulose [Chronulac] 30 ml GT DAILY 06/01/16 Phenobarbital 60 mg GT BID 02/19/17 furosemide 10 mg/mL oral solution 20 mg PO DAILY ml 11/09/17 Cetirizine HCl [Zyrtec] 10 mg PO DAILY 02/04/18 Lactobacillus Acidophilus [Acidophilus] 1 cap PO DAILY 02/04/18 Potassium Chl Soln 15 meq GT DAILY 02/04/18 Amox/Clav 400mg/5ml Susp [Augmentin Suspension 400mg/5ml] 800 mg PO BIDCM #1 bottle 02/08/18 Jevity 1.5 1,000 ml PO 4X/DAY #0 02/08/18 Following Prescrptions Were Given to Patient: Amox/Clav 400mg/5ml Susp [Augmentin Suspension 400mg/5ml] 800 mg PO BIDCM #1 bottle Other Amb Orders: Basic Metabolic Profile (BMP) Time Frame: 3 Days, Location: Laboratory Primary Care Physician: Timmy Perkins MD [Primary Care Provider] - Please follow up with your Primary Care Physician in: 1 week Disposition: Home Minutes spent on discharge:: 35 Patient Condition:: Stable Medical Necessity - Tobacco Use Smoking Status: Never smoker Meaningful Use Info Meaningful Use Diagnoses (Choose all that apply): None applicable <Michael Posadas - Last Filed: 02/08/18 15:02> Discharge Date and Diagnosis - Primary Discharge Diagnosis Active and Suspected Problems (Last Reviewed 09/16/17 @ 17:51 by Torey James DO) Acute respiratory failure with hypoxia (Acute) - Secondary Discharge Diagnosis Chronic Problems (Last Updated 02/05/18 @ 13:59 by Gumaro Kohli MD) Nonrheumatic mitral valve prolapse (Chronic) C. 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) Hospital Course and Treatment Summary of Care Provided: This patient was seen in conjunction with Paul Jackson PA-C . I have independently interviewed and examined the patient and reviewed pertinent historical, laboratory, and other data. Please refer to Paul Jackson PA-C note for details of this patient's presentation, findings, and recommendations. I have reviewed Paul Jackson PA-C note and concur with documented findings. In brief, patient is a 38-year-old gentleman with history of cerebral palsy and subsequently any disability who presented with shortness of breath and assessment of acute hypoxic respiratory failure secondary to aspiration pneumonia with sepsis. Admitted to monitored bed where patient has since been managed Assessment: 1. Hypoxic respiratory failure 2. Sepsis secondary to aspiration pneumonia 3. Cerebral palsy 4. Normocytic anemia 5. Baclofen pump on account of bilateral lower extremity spasms scheduled to be reviewed at [facility] 6. Chronic constipation 7. Seizure disorder Course: As elicited above by Paul Jackson - Physical Exam Vital Signs Temp Pulse Resp BP Pulse Ox 99.5 F H 86 18 139/88 H 93 02/08/18 08:15 02/08/18 14:00 02/08/18 14:00 02/08/18 08:15 02/08/18 08:15 Oxygen Flow Rate (L/min) 1.5 Oxygen Delivery Method Nasal Cannula Weight: 77.9 kg Body Mass Index (BMI) 33.5 Intake and Output for Last 24 Hours Intake Total 1711 / 1711 840 / 840 1239 / 1239 Output Total 620 / 620 500 / 500 400 / 400 Balance 1091 / 1091 340 / 340 839 / 839 Microbiology Past 72 Hours 02/04/18 17:25 Urine Culture - Final Urine, Catheterized Enterococcus faecalis 02/04/18 16:45 Blood Culture - Preliminary Blood Culture (Wb) - Left Hand No growth in 48 hours. Laboratory Tests Past 24 Hrs Code Visit Inpatient E AND M: [id number] Disch Hosp 02/08/18 1455 <Electronically signed by Paul OAKES> Date Paul OAKES 02/08/18 1502<Electronically signed by Michael Posadas MD> Cosigner Signature (if applicable): Date Michael Posadas MD CC: CHAMP Jackson; Michael Posadas MD; Timmy Perkins MD Signed DISCHARGE INSTRUCTION Observed: 02/08/2018 Status: F Source: [place] 10:41 AM [facility] [place] [facility] Medical Records Department [address] [place] [address] Instructions for Home/Discharge Instructions 02/08/18 1039 MR#: [id number] Acct: [id number] Name: KRISS MICHAEL Rep #: [id number] : 1980 38 From: Paul OAKES PCP: Timmy Perkins MD Status: ADM IN - Discharge Diagnoses Current Active Problems: Current Active and Chronic Problems (Last Reviewed 09/16/17 @ 17:51 by Torey James DO) Acute respiratory failure with hypoxia (Acute) You will use the following diet at home:: Other - 1.) Suggest restart TF of Jevity 1.5 Nery at 20 ml/hr AND increase by 10 ml/hr Q 6-8 hours to goal rate 50 ml/hr as tolerated to provide 1800 kcal, 77 gm protein AND 912 ml free water. 2.) Suggest 150 ml water flush Q 4 hours for an additional 900 ml free water (total 1812 ml free water per day) when goal rate achieved. In the meantime suggest 100 ml water flush Q Discharge Activity: Return to Normal Activity Allergies/Adverse Reactions: Allergies cisapride monohydrate [From Propulsid] Allergy (Verified 02/04/18 13:47) Rash codeine Adverse Reaction (Verified 02/04/18 13:47) hallucinations metronidazole [From Flagyl] Adverse Reaction (Verified 02/04/18 13:47) Rash morphine Adverse Reaction (Verified 02/04/18 13:47) Hallucinations dust Allergy (Uncoded 02/04/18 13:47) Other Medications to take at Discharge Simethicone 40MG/0.6ML [Mylicon] 40 mg GT TID 11/09/13 Pantoprazole Sodium [Protonix] 20 ml GT BID 08/09/14 Senna/Docusate Sodium 5 ml GT PRN PRN 08/03/15 Polyethylene Glycol 3350 [Miralax] 17 gm GT DAILY 08/30/15 Magnesium Hydroxide [Milk Of Magnesia] 35 - 50 ml GT DAILY PRN PRN 12/20/15 Metoclopramide [Reglan Solution] 5 mg GT TID 12/20/15 Lactulose [Chronulac] 30 ml GT DAILY 06/01/16 Phenobarbital 60 mg GT BID 02/19/17 furosemide 10 mg/mL oral solution 20 mg PO DAILY ml 11/09/17 Cetirizine HCl [Zyrtec] 10 mg PO DAILY 02/04/18 Lactobacillus Acidophilus [Acidophilus] 1 cap PO DAILY 02/04/18 Potassium Chl Soln 15 meq GT DAILY 02/04/18 Amox/Clav 400mg/5ml Susp [Augmentin Suspension 400mg/5ml] 800 mg PO BIDCM #1 bottle 02/08/18 Jevity 1.5 1,000 ml PO 4X/DAY #0 02/08/18 The following prescriptions were given: Amox/Clav 400mg/5ml Susp [Augmentin Suspension 400mg/5ml] 800 mg PO BIDCM #1 bottle Orders to be completed after discharge: Basic Metabolic Profile (BMP) Time Frame: 3 Days, Location: Laboratory Primary Care Physician: Timmy Perkins MD [Primary Care Provider] - Please follow up with your Primary Care Physician in: 1 week Test Results: Test results from this visit will be discussed in further detail at your follow-up appointment, if applicable. Proposed Discharge Date: 02/08/18 02/08/18 1041 <Electronically signed by Paul OAKES> Date Paul OAKES CC: Timmy Perkins MD CBC W/DIFF, AUTOMATED Collected: 02/08/2018 Status: F Source: [place] 4:40 AM [facility] [place] TYPE CODE TESTS RESULT OUT OF RANGE REFERENCE UNITS LAB L100.1000 4.4-11.0 K/mm3 Normal WBC 4.7 LAB L100.1200 4.6-6.2 M/mm3 Low RBC 3.53 LAB L100.1300 13.0-16.5 g/dl Low HGB 10.3 LAB L100.1400 40-54 % Low HCT 32.6 LAB L100.1500 80-94 fL Normal MCV 92.4 LAB L100.1600 27.0-32.0 pg Normal MCH 29.2 LAB L100.1700 32-36 g/gl Low MCHC 31.6 LAB L100.1810 11.6-14.6 % High RDW CV 15.9 LAB L100.1820 35.1-43.9 fl High RDW SD 52.9 LAB L100.1900 150-450 K/mm3 Normal PLT 166 LAB L100.2000 6.2-12.0 fl Normal MPV 9.2 LAB L100.2100 47-70 % Low NEUT% 41.1 LAB L100.2200 19-41 % Normal LY% 40.7 LAB L100.2300 0-10 % High MONO% 14.6 LAB L100.2400 0-5 % Normal EO% 3.2 LAB L100.2500 0-1 % Normal BASO% 0.4 LAB L100.2550 0.0-0.9 % Normal IM GRAN % 0.000 Result Comment: IG% - Immature Granulocytes (promyelocytes, myelocytes and metamyelocytes) > 1% indicates that a LEFT SHIFT is Present. LAB L100.2620 2.0-7.7 X10 3/uL Low Absolute Neut 1.9 LAB L100.2720 0.83-4.51 X10 3/ul Normal Absolute Lymph 1.92 Performed By: #### L100.0100 #### [facility] [address] [place], [address] BASIC METABOLIC Collected: 02/08/2018 Status: F Source: [place] PROFILE (BMP) 4:40 AM [facility] [place] TYPE CODE TESTS RESULT OUT OF RANGE REFERENCE UNITS LAB L501.0100 74-106 mg/dL Normal GLU 79 Result Comment: Please note revised GLUCOSE reference range effective 2017. LAB L501.1000 7-18 mg/dL Low BUN 5 LAB L501.1100 0.70-1.30 mg/dL Low CREAT,SERUM 0.30 Result Comment: The validity of the calculated GFR AND GFRAA in patients over 70 years has not been determined. Clinical correlation is essential. LAB L501.1110 >60 mL/min Normal EST GFR 361 Result Comment: Non- GFR Calc LAB L501.1115 >60 mL/min Normal EST GFR - AA 436 Result Comment: GFR Calc LAB L501.1255 ml/min Normal Estimated CRCL 240.74 LAB L501.1300 10-20 RATIO BUN/CRE Normal 16.7 LAB L501.2200 8.5-10 mg/dL Low .1 CA 8.4 LAB L501.5300 136-14 mmol/L High 5 NA 147 LAB L501.5600 3.5-5. mmol/L Low 1 K 3.2 LAB L501.5900 98-107 mmol/L High CL 108 LAB L501.6100 21.0-3 mmol/L 2.0 CO2 Normal 32.0 LAB L501.6200 5-15 GAP Normal 7 Performed By: #### L500.2500 #### [facility] [address] [place], [place], [id number] PHOSPHORUS Collected: 02/08/2018 Status: F Source: [place] 4:40 AM [facility] [place] TYPE CODE TESTS RESULT OUT OF RANGE REFERENCE UNITS LAB L501.2300 2.5-4.9 mg/dL Low PHOS 2.0 Performed By: #### L501.2300, L501.5200 #### [facility] [address] [place], [place], [id number] MAGNESIUM Collected: 02/08/2018 Status: F Source: [place] 4:40 AM [facility] [place] TYPE CODE TESTS RESULT OUT OF RANGE REFERENCE UNITS LAB L501.5200 1.6-2.6 mg/dL Normal MG 1.6 Performed By: #### L501.2300, L501.5200 #### [facility] [address] [place], [address] 12 LEAD ELECTROCARDIOGRAM Observed: 02/07/2018 Status: F Source: [place] 7:46 AM [facility] [place] [facility] Cardiovascular Services [address] [place] [address] 12 Lead EKG 02/04/18 1430 MR#: [id number] Acct: [id number] Name: KRISS MICHAEL Rep #: [id number] : 1980 38 From: Maury Waite MD Attending Dr: Michael Posadas MD Status: ADM IN Ordering Dr: Derrick Pool MD Date: 02/04/18 Location: [facility] Sex: M C Admitted: 02/04/18 Test Reason : FEVER Blood Pressure : / mmHG Vent. Rate : 120 BPM Atrial Rate : 120 BPM P-R Int : 146 ms QRS Dur : 090 ms QT Int : 316 ms P-R-T Axes : 058 -12 071 degrees QTc Int : 446 ms Sinus tachycardia Low voltage QRS Cannot rule out Anterior infarct , age undetermined Abnormal ECG Confirmed by MARIANN VARGAS, MAURY ([id number]), photo editor MICHELLE PERKINS ([id number]) on 02/07/2018 7:45:42 AM Referred By: Confirmed By:MAURY WAITE MD 02/07/18 0745 Date Maury Waite MD CC: Michael Posadas MD; Timmy Perkins MD; Derrick Pool MD Signed CBC W/DIFF, AUTOMATED Collected: 02/06/2018 Status: F Source: VAN 5:20 AM [facility] [place] Order Comment: SPECIMEN OBTAINED FROM LINE DRAW TYPE CODE TESTS RESULT OUT OF RANGE REFERENCE UNITS LAB L100.1000 4.4-11.0 K/mm3 Low WBC 4.1 LAB L100.1200 4.6-6.2 M/mm3 Low RBC 3.49 LAB L100.1300 13.0-16.5 g/dl Low HGB 10.4 LAB L100.1400 40-54 % Low HCT 33.4 LAB L100.1500 80-94 fL High MCV 95.7 LAB L100.1600 27.0-32.0 pg Normal MCH 29.8 LAB L100.1700 32-36 g/gl Low MCHC 31.1 LAB L100.1810 11.6-14.6 % High RDW CV 15.8 LAB L100.1820 35.1-43.9 fl High RDW SD 52.6 LAB L100.1900 150-450 K/mm3 Normal PLT 157 LAB L100.2000 6.2-12.0 fl Normal MPV 10.1 LAB L100.2100 47-70 % Normal NEUT% 61.8 LAB L100.2200 19-41 % Normal LY% 25.4 LAB L100.2300 0-10 % Normal MONO% 9.0 LAB L100.2400 0-5 % Normal EO% 2.9 LAB L100.2500 0-1 % Normal BASO% 0.2 LAB L100.2550 0.0-0.9 % Normal IM GRAN % 0.700 Result Comment: IG% - Immature Granulocytes (promyelocytes, myelocytes and metamyelocytes) > 1% indicates that a LEFT SHIFT is Present. LAB L100.2620 2.0-7.7 X10 3/uL Normal Absolute Neut 2.5 LAB L100.2720 0.83-4.51 X10 3/ul Normal Absolute Lymph 1.04 Performed By: #### L100.0100 #### [facility] [address] [facility]. [place], [place], [address] BASIC METABOLIC Collected: 02/06/2018 Status: F Source: [place] PROFILE (BMP) 5:20 AM [facility] [place] Order Comment: SPECIMEN OBTAINED FROM LINE DRAW TYPE CODE TESTS RESULT OUT OF RANGE REFERENCE UNITS LAB L501.0100 74-106 mg/dL Normal GLU 81 Result Comment: Please note revised GLUCOSE reference range effective 2017. LAB L501.1000 7-18 mg/dL Normal BUN 10 LAB L501.1100 0.70-1.30 mg/dL Low CREAT,SERUM 0.24 Result Comment: The validity of the calculated GFR AND GFRAA in patients over 70 years has not been determined. Clinical correlation is essential. LAB L501.1110 >60 mL/min Normal EST GFR 466 Result Comment: Non- GFR Calc LAB L501.1115 >60 mL/min Normal EST GFR - AA 564 Result Comment: GFR Calc LAB L501.1255 ml/min Normal Estimated CRCL 300.93 LAB L501.1300 10-20 RATIO High BUN/CRE 41.7 LAB L501.2200 8.5-10 mg/dL Low .1 CA 8.0 LAB L501.5300 136-14 mmol/L High 5 NA 146 LAB L501.5600 3.5-5. mmol/L 1 K Normal 3.5 LAB L501.5900 98-107 mmol/L High CL 112 LAB L501.6100 21.0-3 mmol/L 2.0 CO2 Normal 29.0 LAB L501.6200 5-15 GAP Normal 5 Performed By: #### L500.2500 #### [facility] [address] [place], [address] CHEST PA AND LATERAL Observed: 02/06/2018 Status: F Source: [place] 12:00 AM [facility] [place] [facility] Imaging Services [address] [place] [address] Chest PA and Lateral MR#: [id number] Acct: [id number] Name: KRISS MICHAEL Rep #: [id number] : 1980 M 38 From: John Chavez MD PCP: Timmy Perkins MD Status: ADM IN Study: Chest PA and Lateral Date of Exam: 02/06/18 Exam# [id number] Ordering Dr: Paul Jackson STUDY: X-RAY CHEST REASON FOR EXAM: Male, 38 years old. Sepsis, pneumonia TECHNIQUE: PA and lateral views of the chest. COMPARISON: 02/04/2018 FINDINGS: Right chest port is stable. Lungs continue to be hypoinflated with diminished amount of perihilar opacities evident on the prior study. Persistent atelectasis in the lung bases. There is trace bilateral pleural effusions layering posteriorly. There is mild cardiac enlargement. Normal mediastinum and rachelle. Normal visualized pulmonary arteries. Normal visualized aortic arch and descending thoracic aorta. Normal visualized thoracic spine. Normal visualized ribs, clavicles, and shoulders. There is no demonstrated abnormality of the visualized soft tissue structures of the upper abdomen. RAD/Chest PA and Lateral IMPRESSION: 1. Favorable change with decreased pulmonary infiltrates. 2. Hypoinflation with persistent bibasilar atelectasis. Trace bilateral pleural effusions. Electronically Signed: John Chavez MD at 10:15 EST , Service support , CC: CHAMP Jackson; Timmy Perkins MD Pattern Technician: Signed Observed: 02/05/2018 Status: F Source: [place] RESPIRATORY PANEL 11:01 AM [facility] [place] RP PANEL ADENOVIRUS Not Detected HUMAN METAPHNEUMO Not Detected INFLUENZA A Not Detected INFLUENZA A (SUBTYPE H1) Not Detected INFLUENZA A (SUBTYPE H3) Not Detected INFLUENZA B Not Detected PARAINFLUENZA 1 Not Detected PARAINFLUENZA 2 Not Detected PARAINFLUENZA 3 Not Detected PARAINFLUENZA 4 Not Detected RHINOVIRUS Not Detected RSV A Not Detected RSV B Not Detected NAAT METHOD Testing was performed using nucleic acid amplification Performed By: #### M100.638 #### [facility] [address] [place], [address] ABDOMEN SINGLE VIEW Observed: 02/05/2018 Status: F Source: [place] (PORTABLE) 10:38 AM [facility] REPOSITORY [facility] Imaging Services [address] [place] [address] Abdomen Single View (Portable) MR#: [id number] Acct: [id number] Name: KRISS MICHAEL Rep #: [id number] : 1980 M 38 From: Jaylin Servin MD PCP: Timmy Perkins MD Status: ADM IN Study: Abdomen Single View (Portable) Date of Exam: 02/05/18 Exam# [id number] Ordering Dr: Paul Jackson STUDY: X-RAY - ABDOMEN/PELVIS REASON FOR EXAM: Male, 38 years old. Nausea and vomiting TECHNIQUE: Two AP supine views of the abdomen and pelvis. COMPARISON: September 18, 2017 abdomen study FINDINGS: Normal visualized lung bases. Mildly distended loops of small bowel and large bowel. There is a colostomy seen overlying the left lower abdomen. There is a baclofen pump with the catheter extending to the level of T11. This partially visualized central line with the tip in the superior vena cava. There is levoscoliosis. There is visualized hip dysplasia. RAD/Abdomen Single View (Portable) IMPRESSION: Findings are most consistent with ileus. Electronically Signed: Jaylin Servin MD at 15:07 EST Tel , Service support , CC: CHAMP Jackson; Timmy Perkins MD Pattern Technician: Signed CBC W/DIFF, AUTOMATED Collected: 02/05/2018 Status: F Source: [place] 5:20 AM [facility] [place] Order Comment: SPECIMEN OBTAINED FROM LINE DRAW TYPE CODE TESTS RESULT OUT OF RANGE REFERENCE UNITS LAB L100.1000 4.4-11.0 K/mm3 Low WBC 3.9 LAB L100.1200 4.6-6.2 M/mm3 Low RBC 3.24 LAB L100.1300 13.0-16.5 g/dl Low HGB 9.6 LAB L100.1400 40-54 % Low HCT 30.3 LAB L100.1500 80-94 fL Normal MCV 93.5 LAB L100.1600 27.0-32.0 pg Normal MCH 29.6 LAB L100.1700 32-36 g/gl Low MCHC 31.7 LAB L100.1810 11.6-14.6 % High RDW CV 15.3 LAB L100.1820 35.1-43.9 fl High RDW SD 50.4 LAB L100.1900 150-450 K/mm3 Normal PLT 151 LAB L100.2000 6.2-12.0 fl Normal MPV 9.6 LAB L100.2100 47-70 % Normal NEUT% 48.0 LAB L100.2200 19-41 % Normal LY% 37.9 LAB L100.2300 0-10 % High MONO% 11.2 LAB L100.2400 0-5 % Normal EO% 2.6 LAB L100.2500 0-1 % Normal BASO% 0.3 LAB L100.2550 0.0-0.9 % Normal IM GRAN % 0.000 Result Comment: IG% - Immature Granulocytes (promyelocytes, myelocytes and metamyelocytes) > 1% indicates that a LEFT SHIFT is Present. LAB L100.2620 2.0-7.7 X10 3/uL Low Absolute Neut 1.9 LAB L100.2720 0.83-4.51 X10 3/ul Normal Absolute Lymph 1.46 Performed By: #### L100.0100 #### [facility] [address] [place], [address] BASIC METABOLIC Collected: 02/05/2018 Status: F Source: [place] PROFILE (BMP) 5:20 AM [facility] [place] Order Comment: SPECIMEN OBTAINED FROM LINE DRAW TYPE CODE TESTS RESULT OUT OF RANGE REFERENCE UNITS LAB L501.0100 74-106 mg/dL High GLU 112 Result Comment: Fasting Glucose result from 100 to 125 mg/dL suggests IMPAIRED HOMEOSTASIS per A.D.A. criteria. Please note revised GLUCOSE reference range effective 2017. LAB L501.1000 7-18 mg/dL Normal BUN 16 LAB L501.1100 0.70-1.30 mg/dL Low CREAT,SERUM 0.31 Result Comment: The validity of the calculated GFR AND GFRAA in patients over 70 years has not been determined. Clinical correlation is essential. LAB L501.1110 >60 mL/min Normal EST GFR 346 Result Comment: Non- GFR Calc LAB L501.1115 >60 mL/min Normal EST GFR - AA 419 Result Comment: GFR Calc LAB L501.1255 ml/min Normal Estimated CRCL 232.97 LAB L501.1300 10-20 RATIO High BUN/CRE 51.4 LAB L501.2200 8.5-10 mg/dL Low .1 CA 7.5 LAB L501.5300 136-14 mmol/L 5 NA Normal 144 LAB L501.5600 3.5-5. mmol/L Low 1 K 3.3 LAB L501.5900 98-107 mmol/L High CL 110 LAB L501.6100 21.0-3 mmol/L 2.0 CO2 Normal 31.0 LAB L501.6200 5-15 Low GAP 3 Performed By: #### L500.2500 #### [facility] [address] [place], [address] HISTORY AND PHYSICAL Observed: 02/04/2018 Status: F Source: [place] EXAM 7:10 PM [facility] [place] [facility] Medical Records Department [address] [place] [address] History and Physical 02/04/18 1700 MR#: [id number] Acct: [id number] Name: KRISS MICHAEL Rep #: [id number] : 1980 38 From: Paul OAKES PCP: Timmy Perkins MD Status: ADM IN Y [id number] <Paul Jackson - Last Filed: 02/04/18 17:00> Problem List (1) Sepsis Status: Acute (2) Pneumonia Status: Acute (3) Acute respiratory failure with hypoxia Status: Acute (4) Cerebral palsy Status: Chronic Comment: Quadriplegic Severe mental retardation Chronic constipation PEG tube (5) History of seizure disorder Status: Chronic (6) Colostomy in place Status: Chronic History of Present Illness Date of Admission: 02/04/18 Chief Complaint: fever The patient is a 38 year old M with pmhx of aspiration pna, cerebral palsy, seizure, colostomy, baclofen pump present, who presents to the ER with c/o fever at home. His family noticed that he seemed to be more spastic, checked his vitals and found him to have a fever, tachycardia, and noted he was hypoxic. He may have had some increased coughing yesterday. He was brought to the ER and CXR showed BL pna. He was hypoxic on 4lpm O2 at 88%. He appears septic with tachycardia, tachypnea, fever, BL pna on cxr. He was given rocephin and azithro in the ER. He is nonverbal, only grunting during interview. Family asked us to provide oral baclofen as well as his baclofen pump is reportedly not working - this has happened before - nursing noted that the baclofen level is not declining in the reservoir. He is scheduled to see the surgeon that installed it next week at [facility]. He has chronic LE edema - family states this is not worse than normal. He has not been in the hospital since . [] Past Medical History Past Medical History (Chronic Problems): Chronic Problems (Last Reviewed 09/16/17 @ 17:51 by Torey James DO) Nonrheumatic mitral valve prolapse (Chronic) C. 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) Edema (Chronic) Medical History: Medical History (Last Reviewed 09/16/17 @ 17:51 by Torey James DO) Nonrheumatic mitral valve prolapse (Chronic) I34.1 Cerebral palsy (Chronic) G80.9 Quadriplegic Severe mental retardation Chronic constipation PEG tube Allergies cisapride monohydrate [From Propulsid] Allergy (Verified 02/04/18 13:47) Rash codeine Adverse Reaction (Verified 02/04/18 13:47) hallucinations metronidazole [From Flagyl] Adverse Reaction (Verified 02/04/18 13:47) Rash morphine Adverse Reaction (Verified 02/04/18 13:47) Hallucinations dust Allergy (Uncoded 02/04/18 13:47) Other Home Medications: Ambulatory Orders Medication Instructions Recorded Surgical History: Surgical History (Last Updated 10/05/17 @ 13:56 by Livia Mahoney) H/O eye surgery (Resolved) Z98.890 Heel cord lengthening bilaterally History of colostomy History of gastrostomy tube placement History of open reduction and internal fixation (ORIF) procedure Z98.890 left hip History of soft tissue release Bilateral hips and knees Status post insertion of intrathecal baclofen pump Z96.89 Surgical History: - - Insertion of a baclofen pump which has been replaced twice since then. PEG tube insertion. Left colostomy Psychiatric History: No pertinent psych hx Lives: With Family Smoking Status: Never smoker Alcohol: None Drugs: None - *Family History Maternal Family History: Family History (Last Updated 10/05/17 @ 13:57 by Livia Mahoney) Mother Hypertension Hepatitis C Father Hypertension Atrial fibrillation CAD (coronary artery disease) History Items: No pertinent history, - - None significant Paternal Family History: Family History (Last Updated 10/05/17 @ 13:57 by Livia Mahoney) Mother Hypertension Hepatitis C Father Hypertension Atrial fibrillation CAD (coronary artery disease) History Items: No pertinent history Review of Systems Constitutional: Reports: Fever. Denies: Weight Change Respiratory: Denies: Shortness of breath at rest, Sputum production Gastrointestinal: Denies: Nausea, Vomiting Unable to obtain accurate/complete ROS d/t: pt nonverbal. VTE Information - Inpt Only VTE Present on Admission: No VTE Mechan Device Prophylaxis: None Patient Problems: Active and Suspected Problems (Last Reviewed 09/16/17 @ 17:51 by Torey James DO) Pneumonia (Acute) Acute respiratory failure with hypoxia (Acute) - Physical Exam Vital Signs Temp Pulse Resp BP Pulse Ox 99.7 F H 103 H 17 124/87 H 94 02/04/18 15:02 02/04/18 16:41 02/04/18 16:41 02/04/18 16:41 02/04/18 16:41 Oxygen Flow Rate (L/min) 2 Oxygen Delivery Method Nasal Cannula Weight: 172 lb Body Mass Index (BMI) 28.6 Laboratory Tests Past 24 Hrs WBC RBC Hgb Hct MCV MCH MCHC Assessment/Plan All Active Problems (Last Reviewed 09/16/17 @ 17:51 by Torey James DO) Pneumonia (Acute) Acute respiratory failure with hypoxia (Acute) Severe sepsis (Acute) Aspiration pneumonia (Acute) H/O eye surgery (Resolved) Aspiration pneumonia (Acute) Sepsis (Acute) Tachycardia (Acute) Difficult intravenous access (Acute) C. difficile colitis (Resolved) 1. Acute hypoxic respiratory failure and acute sepsis 2/2 BL pna - CAP vs Aspiration - Start unasyn, continue rocephin. Check blood cx, sputum cx, urine antigens. Provide aerosols and mucinex. Multiple episodes of aspiration in past. G tube in place. He has been seen by Drs. Monsalve/Harish in the past. Sepsis demonstrated by fever/tachycardic/tachypneic, negative lactate. 2. Cerebral palsy - has colostomy, which is ripped and need changed - consult wound nurse. Also has implanted abdominal/spinal baclofen pump that is not working. Will provide PO baclofen at families request, they have noted increased spasticity. G tube is in place. Continue. 3. Mild normocytic anemia - stable. 4. Chronic LE edema - continue socorro wraps. DVT ppx: lovenox DC planning: Parents are horse race timer caregivers. This patient was seen by Paul Jackson PA-C under the supervision of Doctor Hannah. <Barry Young - Last Filed: 02/04/18 19:10> History of Present Illness The patient is a 38 year old M [] Past Medical History Medical History: Medical History (Last Reviewed 09/16/17 @ 17:51 by Torey James DO) Nonrheumatic mitral valve prolapse (Chronic) I34.1 Cerebral palsy (Chronic) G80.9 Quadriplegic Severe mental retardation Chronic constipation PEG tube Allergies cisapride monohydrate [From Propulsid] Allergy (Verified 02/04/18 13:47) Rash codeine Adverse Reaction (Verified 02/04/18 13:47) hallucinations metronidazole [From Flagyl] Adverse Reaction (Verified 02/04/18 13:47) Rash morphine Adverse Reaction (Verified 02/04/18 13:47) Hallucinations dust Allergy (Uncoded 02/04/18 13:47) Other Surgical History: Surgical History (Last Updated 10/05/17 @ 13:56 by Livia Mahoney) H/O eye surgery (Resolved) Z98.890 Heel cord lengthening bilaterally History of colostomy History of gastrostomy tube placement History of open reduction and internal fixation (ORIF) procedure Z98.890 left hip History of soft tissue release Bilateral hips and knees Status post insertion of intrathecal baclofen pump Z96.89 - *Family History Maternal Family History: Family History (Last Updated 10/05/17 @ 13:57 by Livia Mahoney) Mother Hypertension Hepatitis C Father Hypertension Atrial fibrillation CAD (coronary artery disease) Paternal Family History: Family History (Last Updated 10/05/17 @ 13:57 by Livia Mahoney) Mother Hypertension Hepatitis C Father Hypertension Atrial fibrillation CAD (coronary artery disease) - Physical Exam Vital Signs Temp Pulse Resp BP Pulse Ox 97.5 F L 91 20 H 112/62 95 02/04/18 18:13 02/04/18 18:13 02/04/18 18:40 02/04/18 18:13 02/04/18 18:13 Oxygen Flow Rate (L/min) 5 Oxygen Delivery Method Nasal Cannula Weight: 171 lb 11.841 oz Body Mass Index (BMI) 33.5 Laboratory Tests Past 24 Hrs WBC 7.4 RBC 4.08 L Hgb 11.9 L Hct 37.0 L MCV 90.7 MCH 29.2 MCHC 32.2 RDW 15.4 H RDW Differential 50.7 H WBC RBC Hgb Hct MCV MCH MCHC RDW RDW Differential Plt Count MPV Immature Gran % (Auto) Neut % (Auto) Lymph % (Auto) Code Visit Addendum: Dr. Young I personally examined the patient and reviewed the chart. I agree with the above. 38-year-old male with a past history of cerebral palsy, spasticity, edema, constipation who presents from home with hypoxia and tachycardia. She is fully dependent on his parents at home and he is nonverbal, receives medications through G-tube, and per the parents he was looking flushed and his heart rate at one point was in the 140s at home and he was below 90% on his oxygen saturation at home as well as they brought him to the ER. In the ER he had a chest x-ray which was concerning for possible bilateral pneumonia though this is difficult because his lungs are underexpanded given his condition. Will start on community- acquired antibiotics with Unasyn and azithromycin as well as IV fluids. Blood cultures and urine cultures are pending. There is also some concern that his baclofen pump has not been working because a couple of weeks ago when the nurse was out there she drained the pump and usually they get a 4.8 mL's of residual medication, however this time it was over 10 mL's. So we will plan on reinitiating baclofen per his G-tube. Inpatient E AND M: 11032 Subs Hosp L3 02/04/181717 <Electronically signed by Paul OAKES> Date Paul OAKES 02/04/181909<Electronically signed by Barry Young MD> Cosigner Signature: Date (if applicable) Barry Young MD CC: CHAMP Jackson; Timmy Perkins MD; Barry Young MD Signed URINALYSIS, COMPLETE Collected: 02/04/2018 Status: F Source: VAN 5:25 PM [facility] [place] Order Comment: Order Date: 02/04/18 Has pt arrived? Y How was Urine Obtained? FIBER OPTIC TECHNICIAN TO SPECIFY TYPE CODE TESTS RESULT OUT OF RANGE REFERENCE UNITS LAB L400.3000 Yellow COLOR Normal Yellow LAB L400.3050 Clear Normal CLARITY Clear LAB L400.3200 Normal mg/dl Normal GLUCOSE, UR Normal LAB L400.3300 Negative mg/dL Normal BILIRUBIN URINE Negative LAB L400.3400 Negative mg/dl High 5 KETONE UR LAB L400.3465 1.002-1.030 Normal SP.GR. DIPSTX 1.010 LAB L400.3550 5.0 - 8.0 pH UR Normal 6.5 LAB L400.3600 Negative mg/dl High PROT 30 DIPSTX LAB L400.3700 Normal mg/dl Normal UROBILI Normal LAB L400.3750 Negative Normal NITRITE UR Negative LAB L400.3780 Negative /ul Normal OCCULT BLOOD-UR Negative LAB L400.3800 Negative /ul High LEUK 25 ESTERASE LAB L400.4050 0-5 /hpf WBC Normal 0-5 SEEN LAB L400.4100 0-5 /hpf 0 Normal RBC-UA SEEN LAB L400.4150 0-5 /hpf SQUAM Normal EPI 0-5 SEEN LAB L400.4300 None Seen /hpf 1+ Normal BACTERIA LAB L400.4350 <or=2+ /hpf 2+ Normal MUCUS, URINE LAB L400.4400 0-5 /lpf Normal HYALINE CAST 0-5 SEEN Performed By: #### L400.0001 #### [facility] [address] [place], [address] Observed: 02/04/2018 Status: F Source: VAN LEGIONELLA ANTIGEN 5:25 PM [facility] [place] [facility] Interface Comments: using sample from er Legionella, UR Legionella Antigen result interpretation: Negative Presumptive negative for Legionella pneumophila serogroup 1 antigen in urine, suggesting no recent or current infection. Legionella Ag, Urine Negative (See interpretation below) Performed By: #### M300.4500 #### [facility] [address] [place], [address] STREP Observed: 02/04/2018 Status: F Source: VAN PNEUMONIAE ANTIG(UR,CSF) 5:25 PM [facility] [place] Interface Comments: using sample from ER S pneumo Ag URINE INTERPRETATION Negative Urine Presumptive negative for pneumococcal pneumonia, suggesting no current or recent pneumococcal infection. Infection due to S pneumoniae cannot be ruled out since the antigen present in the sample may be below the detection limit of the test. Strep pneumo Test Negative URINE (See interpretation below) Performed By: #### M300.4600 #### [facility] [address] [place], [place], [address] Observed: 02/04/2018 Status: F Source: VAN CULTURE, URINE 5:25 PM [facility] [place] Order Date: 02/04/18 Has pt arrived? Y Urine Culture There are no CLSI standards for interpretation of this Drug/Organism combination. ORGANISM 1: Enterococcus faecalis [place] Count 1000-10,000 ORGANISM 2: Corynebacterium species [place] Count 1000-10,000 Enterococcus faecalis: REACTION Ampicillin $ <=2 S Benzylpenicillin NF 2 S Ciprofloxacin $ 1 S Gentamicin SYN-S S Levofloxacin $ 1 S Linezolid $$$$ 2 S Nitrofurantoin $ <=16 S Streptomycin $ SYN-S S Tetracycline NF <=1 S Vancomycin $ 2 S (NF) indicates non-formulary drug at [facility]. Approval by Infectious Disease Specialist required before non-formulary drugs may be ordered and/or dispensed. * CLSI guidelines does not recommend testing of cephalosporins. This interpretation is deduced from Beta-lactam/penicillin results. Performed By: #### M100.0650 #### [facility] [address] [place], [place], [address] Observed: 02/04/2018 Status: F Source: VAN CULTURE, BLOOD (WB) 4:45 PM [facility] [place] No growth in 5 days. Performed By: #### M200.1000 #### [facility] [address] [place], [address] EMERGENCY DEPARTMENT Observed: 02/04/2018 Status: F Source: [place] SUMMARY 4:33 PM [facility] [place] [facility] Medical Records Department [address] [place] [address] Emergency Department Summary 02/04/18 1631 MR#: [id number] Acct: [id number] Name: KRISS MICHAEL Rep #: [id number] : 1980 38 From: Derrick Pool MD PCP: Timmy Perkins MD Status: REG ER - ER Visit Summary Date of Service: 02/04/18 Chief Complaint: Fever, increased spasticity History of Present Illness: The patient is a 38 M who presents with the above symptoms. Patient has a history of cerebral palsy and lives with family. They know that he has had a fever and increased spasticity. They believe that his baclofen pump is not working. It is due to be replaced this winter. They did start oral baclofen last night. His temperature has been elevated. He has not had a cough. He does have a history of aspiration pneumonia as well Physical Examination: Vital signs reviewed. Temperature 101, heart rate 117. Well-developed male in his normal state of health according to family. HEENT exam reveals no acute findings. His heart is tachycardic and regular rhythm without murmurs. Lungs are clear to auscultation bilaterally. Abdomen soft and nondistended. Skin exam reveals no rashes. His neurologic exam is at baseline. However, he does have increased spasticity of his lower legs. Test Results: EKG is normal sinus rhythm with a rate of 120. Nonspecific ST and T wave changes noted. White blood cell count 7.4, hemoglobin 11.9. Creatinine 0.57. Alkaline phosphatase 239. Lactate 1.8 Emergency Department Course and Treatment: Patient was given Ativan to help with his spasticity. Chest x-ray does reveal bilateral infiltrates. He will be started on Rocephin and azithromycin. I spoke with his neurologist at the [facility]. He recommended oral baclofen if needed. This was relayed to the hospitalist. Treatment Plan: [] Disposition: Admit Impression: Sepsis, community-acquired pneumonia This note was generated with [employer] dictation software. It may contain incorrect words, spelling, and punctuation that were not noted in review of the chart prior to signing ED Disposition - Plan for ED Patient: Chief Complaint: Fever Referrals: Timmy Perkins MD [Primary Care Provider] - What to do if you have Problems For any increased pain, shortness of breath, bleeding, nausea or vomiting, chest pain, or any unexpected problems, contact your Primary Care Provider. Call [facility] ([phone]) or report to the closest Emergency Room. Call 911 if necessary. 02/04/18 1633 <Electronically signed by Derrick Pool MD> Date Derrick Pool MD Cosigner Signature (If Indicated): Date CC: Timmy Perkins MD CBC W/DIFF, AUTOMATED Collected: 02/04/2018 Status: F Source: [place] 3:20 PM [facility] [place] CODE TESTS RESULT OUT OF RANGE REFERENCE UNITS LAB L100.1000 4.4-11.0 K/mm3 Normal WBC 7.4 LAB L100.1200 4.6-6.2 M/mm3 Low RBC 4.08 LAB L100.1300 13.0-16.5 g/dl Low HGB 11.9 LAB L100.1400 40-54 % Low HCT 37.0 LAB L100.1500 80-94 fL Normal MCV 90.7 LAB L100.1600 27.0-32.0 pg Normal MCH 29.2 LAB L100.1700 32-36 g/gl Normal MCHC 32.2 LAB L100.1810 11.6-14.6 % High RDW CV 15.4 LAB L100.1820 35.1-43.9 fl High RDW SD 50.7 LAB L100.1900 150-450 K/mm3 Normal PLT 206 LAB L100.2000 6.2-12.0 fl Normal MPV 9.4 LAB L100.2100 47-70 % High NEUT% 70.3 LAB L100.2200 19-41 % Low LY% 17.7 LAB L100.2300 0-10 % High MONO% 10.6 LAB L100.2400 0-5 % Normal EO% 1.2 LAB L100.2500 0-1 % Normal BASO% 0.1 LAB L100.2550 0.0-0.9 % Normal IM GRAN % 0.100 Result Comment: IG% - Immature Granulocytes (promyelocytes, myelocytes and metamyelocytes) > 1% indicates that a LEFT SHIFT is Present. LAB L100.2620 2.0-7.7 X10 3/uL Normal Absolute Neut 5.2 LAB L100.2720 0.83-4.51 X10 3/ul Normal Absolute Lymph 1.31 Performed By: #### L100.0100 #### [facility] [address] [place], [place], [address] COMPREHENSIVE METABOLIC Collected: 02/04/2018 Status: F Source: [facility] 3:20 PM [facility] [place] TYPE CODE TESTS RESULT OUT OF RANGE REFERENCE UNITS LAB L501.0100 74-106 mg/dL Normal GLU 101 Result Comment: Fasting Glucose result from 100 to 125 mg/dL suggests IMPAIRED HOMEOSTASIS per A.D.A. criteria. Please note revised GLUCOSE reference range effective 2017. LAB L501.1000 7-18 mg/dL High BUN 24 LAB L501.1100 0.70-1.30 mg/dL Low CREAT,SERUM 0.57 Result Comment: The validity of the calculated GFR AND GFRAA in patients over 70 years has not been determined. Clinical correlation is essential. LAB L501.1110 >60 mL/min Normal EST GFR 172 Result Comment: Non- GFR Calc LAB L501.1115 >60 mL/min Normal EST GFR - AA 208 Result Comment: GFR Calc LAB L501.1255 ml/min Normal Estimated CRCL 155.85 LAB L501.1300 10-20 RATIO High BUN/CRE 42.1 LAB L501.1500 6.4-8. g/dL High 2 T PROT 9.0 LAB L501.1800 3.2-5. g/dL 0 ALB Normal 3.4 LAB L501.1950 2.2-4. g/dL High 2 GLOB 5.6 LAB L501.2000 0.9-2. RATIO Low 4 A/G 0.6 LAB L501.2200 8.5-10 mg/dL .1 CA Normal 8.6 LAB L501.4100 15-37 U/L High AST 40 LAB L501.4305 45-117 U/L High ALK P 239 LAB L501.4405 16-61 U/L ALT Normal 56 LAB L501.4600 0.20-1 mg/dL .00 T BILI Normal 0.20 LAB L501.5300 136-14 mmol/L 5 NA Normal 139 LAB L501.5600 3.5-5. mmol/L 1 K Normal 4.2 LAB L501.5900 98-107 mmol/L CL Normal 103 LAB L501.6100 21.0-3 mmol/L 2.0 CO2 Normal 29.0 LAB L501.6200 5-15 GAP Normal 7 Performed By: #### L500.4050 #### [facility] [place], [place], [address] LACTIC ACID Collected: 02/04/2018 Status: F Source: [place] 3:20 PM [facility] [place] Order Comment: Yes/No query for Sepsis Lactate Rule Y TYPE CODE TESTS RESULT OUT OF RANGE REFERENCE UNITS LAB L503.6005 0.4-2.0 mmol/L Normal LACTIC ACID 1.8 Performed By: #### L503.6005 #### [facility] [address] [facility] [id number] PROTHROMBIN TIME W/INR Collected: 02/04/2018 Status: F Source: [place] 3:20 PM [facility] [place] TYPE CODE TESTS RESULT OUT OF RANGE REFERENCE UNITS LAB L300.4150 11.7-14.9 SECONDS Normal PROTIME 14.5 LAB L300.4200 Normal INR 1.1 Performed By: #### L300.3900, L300.4310 #### [facility] [address] [place], [address] PARTIAL THROMBOPLAST Collected: 02/04/2018 Status: F Source: [place] 3:20 PM [facility] [place] TYPE CODE TESTS RESULT OUT OF RANGE REFERENCE UNITS LAB L300.4310 24.1-36.2 Seconds Normal PTT 33.8 Performed By: #### L300.3900, L300.4310 #### [facility] [address] [place], [address] Observed: 02/04/2018 Status: F Source: [place] CULTURE, BLOOD (WB) 3:20 PM [facility] [place] BC No growth in 5 days. Performed By: #### M200.1000 #### [facility] [address] [place], [address] CHEST 1 VIEW Observed: 02/04/2018 Status: F Source: [place] (PORTABLE) 2:07 PM [facility] [place] [facility] Imaging Services [address] [place] [address] Chest 1 View (Portable) MR#: [id number] Acct: [id number] Name: FERNANDAKRISS Loreto Rep #: [id number] : 1980 M 38 From: Jaylin Servin MD PCP: Timmy Perkins MD Status: REG ER Study: Chest 1 View (Portable) Date of Exam: 02/04/18 Exam# [id number] Ordering Dr: Derrick Pool MD STUDY: X-RAY CHEST REASON FOR EXAM: Male, 38 years old. Baclofen pump malfunctioning [facility] TECHNIQUE: Single AP portable view of the chest. COMPARISON: September 19, 2017 chest x-ray FINDINGS: Study is nearly nondiagnostic. The lungs are underexpanded there are bilateral perihilar ground glass opacities. There is tubing or possible Port-A-Cath overlying the right mid chest. RAD/Chest 1 View (Portable) IMPRESSION: Nearly nondiagnostic study. Bilateral pulmonary infiltrates consider atelectasis and/or edema. Electronically Signed: Jaylin Serivn MD at 15:03 EST Tel , Service support , CC: Timmy Perkins MD; Derrick Pool MD Pattern Technician: Signed CBC W/DIFF, AUTOMATED Collected: 01/12/2018 Status: F Source: [place] 1:11 PM [facility] [place] TYPE CODE TESTS RESULT OUT OF RANGE REFERENCE UNITS LAB L100.1000 4.4-11.0 K/mm3 Low WBC 4.2 LAB L100.1200 4.6-6.2 M/mm3 Low RBC 3.83 LAB L100.1300 13.0-16.5 g/dl Low HGB 11.1 LAB L100.1400 40-54 % Low HCT 35.7 LAB L100.1500 80-94 fL Normal MCV 93.2 LAB L100.1600 27.0-32.0 pg Normal MCH 29.0 LAB L100.1700 32-36 g/gl Low MCHC 31.1 LAB L100.1810 11.6-14.6 % High RDW CV 15.4 LAB L100.1820 35.1-43.9 fl High RDW SD 52.1 LAB L100.1900 150-450 K/mm3 Low PLT 115 LAB L100.2000 6.2-12.0 fl Normal MPV 11.7 LAB L100.2100 47-70 % Low NEUT% 46.3 LAB L100.2200 19-41 % Normal LY% 40.7 LAB L100.2300 0-10 % Normal MONO% 9.7 LAB L100.2400 0-5 % Normal EO% 3.3 LAB L100.2500 0-1 % Normal BASO% 0.0 LAB L100.2550 0.0-0.9 % Normal IM GRAN % 0.000 Result Comment: IG% - Immature Granulocytes (promyelocytes, myelocytes and metamyelocytes) > 1% indicates that a LEFT SHIFT is Present. LAB L100.2620 2.0-7.7 X10 3/uL Normal Absolute Neut 2.0 LAB L100.2720 0.83-4.51 X10 3/ul Normal Absolute Lymph 1.72 Performed By: #### L100.0100 #### [facility] [address] [place], [address] BASIC METABOLIC Collected: 01/12/2018 Status: F Source: [place] PROFILE (BMP) 1:11 PM [facility] [place] Order Comment: Comments: STANDING ORDER TYPE CODE TESTS RESULT OUT OF RANGE REFERENCE UNITS LAB L501.0100 74-106 mg/dL Low GLU 68 Result Comment: Please note revised GLUCOSE reference range effective 2017. LAB L501.1000 7-18 mg/dL High BUN 23 LAB L501.1100 0.70-1.30 mg/dL Low CREAT,SERUM 0.35 Result Comment: The validity of the calculated GFR AND GFRAA in patients over 70 years has not been determined. Clinical correlation is essential. LAB L501.1110 >60 mL/min Normal EST GFR 303 Result Comment: Non- GFR Calc LAB L501.1115 >60 mL/min Normal EST GFR - AA 367 Result Comment: GFR Calc LAB L501.1300 10-20 RATIO High BUN/CRE 65.9 LAB L501.2200 8.5-10.1 mg/dL CA Normal 8.8 LAB L501.5300 136-145 mmol/L NA Normal 139 LAB L501.5600 3.5-5.1 mmol/L K Normal 4.2 LAB L501.5900 98-107 mmol/L CL Normal 103 LAB L501.6100 21.0-32.0 mmol/L Normal CO2 32.0 LAB L501.6200 5-15 Low GAP 4 Performed By: #### L500.2500 #### [facility] [address] [place], [address] CBC W/DIFF, AUTOMATED Collected: 12/16/2017 Status: F Source: [place] 10:30 AM [facility] [place] Order Comment: Order Date: 12/15/16 Order Info: 0184-1 - CBCD TYPE CODE TESTS RESULT OUT OF RANGE REFERENCE UNITS LAB L100.1000 4.4-11.0 K/mm3 Low WBC 3.6 LAB L100.1200 4.6-6.2 M/mm3 Low RBC 3.68 LAB L100.1300 13.0-16.5 g/dl Low HGB 10.7 LAB L100.1400 40-54 % Low HCT 34.1 LAB L100.1500 80-94 fL Normal MCV 92.7 LAB L100.1600 27.0-32.0 pg Normal MCH 29.1 LAB L100.1700 32-36 g/gl Low MCHC 31.4 LAB L100.1810 11.6-14.6 % High RDW CV 15.8 LAB L100.1820 35.1-43.9 fl High RDW SD 53.1 LAB L100.1900 150-450 K/mm3 Low PLT 118 LAB L100.2000 6.2-12.0 fl Normal MPV 11.2 LAB L100.2100 47-70 % Low NEUT% 32.7 LAB L100.2200 19-41 % High LY% 51.0 LAB L100.2300 0-10 % High MONO% 13.3 LAB L100.2400 0-5 % Normal EO% 3.0 LAB L100.2500 0-1 % Normal BASO% 0.0 LAB L100.2550 0.0-0.9 % Normal IM GRAN % 0.000 Result Comment: IG% - Immature Granulocytes (promyelocytes, myelocytes and metamyelocytes) > 1% indicates that a LEFT SHIFT is Present. LAB L100.2620 2.0-7.7 X10 3/uL Low Absolute Neut 1.2 LAB L100.2720 0.83-4.51 X10 3/ul Normal Absolute Lymph 1.84 Performed By: #### L100.0100, L500.2500 #### [facility] [place], [address] BASIC METABOLIC Collected: 12/16/2017 Status: F Source: [place] PROFILE (BMP) 10:30 AM [facility] [place] Order Comment: Order Date: 12/15/16 Order Info: [id number] - BMP TYPE CODE TESTS RESULT OUT OF RANGE REFERENCE UNITS LAB L501.0100 74-106 mg/dL Low GLU 72 Result Comment: Please note revised GLUCOSE reference range effective 2017. LAB L501.1000 7-18 mg/dL High BUN 23 LAB L501.1100 0.70-1.30 mg/dL Low CREAT,SERUM 0.31 Result Comment: The validity of the calculated GFR AND GFRAA in patients over 70 years has not been determined. Clinical correlation is essential. LAB L501.1110 >60 mL/min Normal EST GFR 342 Result Comment: Non- GFR Calc LAB L501.1115 >60 mL/min Normal EST GFR - AA 414 Result Comment: GFR Calc LAB L501.1300 10-20 RATIO High BUN/CRE 73.2 LAB L501.2200 8.5-10.1 mg/dL CA Normal 8.7 LAB L501.5300 136-145 mmol/L NA Normal 138 LAB L501.5600 3.5-5.1 mmol/L K Normal 4.3 LAB L501.5900 98-107 mmol/L CL Normal 103 LAB L501.6100 21.0-32.0 mmol/L High CO2 33.0 LAB L501.6200 5-15 Low GAP 2 Performed By: #### L100.0100, L500.2500 #### [facility] [address] [place], [address] PROGRESS Observed: 11/22/2017 Status: COMPLETED Source: [place] 1:24 PM [facility] REPOSITORY HNO ID: [id number] Author: Duarte Bower) Bridger Service: (none) Author Type: Physician Type: Progress Notes Filed: 11/23/2017 10:17 AM Note Text: Referring physician: Estefania Gonzalez MD SUBJECTIVE: Kriss Michael presents for consideration of baclofen pump replacement due to approaching battery end-of-life for pump. He is a 37 year old male with a history of cerebral palsy and spastic quadriparesis. Follows in spasticity clinic with Dr. Gonzalez and has home refills performed by [facility]. He originally had IT baclofen pump placed at age 19 [address] Glass in 07/1999. History as follows: 08/11/1999: pump placed (L3-4 interspace, catheter cephalad to T8-9) 06/22/2005: removal of catheter and pump due to ulceration in pump area leading to exposure of pump 07/02/2005: CSF leak from lumbar wound, lumbar wound revision 07/16/2005: Placement of pump and catheter (L3-4 interspace, catheter to T8), pump placed in area of previous pump 03/08/2012: pump replacement due to pump end of life, reactive scar and fat overlying pump causing difficult access Current pump settings can be found in Dr. Gonzalez's clinic note on 11/22/17. Patient's family reports that the pump has been very helpful for Kriss and has made a big difference in positioning him. He undergoes botox injections as well. He frequently aspirates and has had multiple admissions and ICU stays for aspiration pneumonia. He is prone to c. Diff due to many courses of antibiotics. He takes his diet through a G-tube and he has a colostomy. At baseline he watches TV, reacts to family members and differentiates between people, is largely nonverbal, and has very little voluntary movement. He has not had any recent febrile illnesses and the family has no concerns regarding his surgical incisions. 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 LORazepam (ATIVAN) 1 mg tablet Take 1 mg by mouth every 8 hours as needed. baclofen (LIORESAL) 20 mg tablet 1 tablet three times daily as needed. For severe spasms or signs of baclofen withdrawal onabotulinum toxin type A (BOTOX) 100 unit solr Inject 800 Units intramuscularly every 3 months. [facility] sennosides (SENNA) 8.8 mg/5 mL syrup Take 5 mL by mouth once daily as needed. lactulose (DUPHALAC, CONSTULOSE) 10 gram/15 mL solution Take 7.5 g by mouth once daily as needed. potassium chloride 20 mEq/15 mL solution Take 20 mEq by mouth once daily as needed. baclofen, LIORESAL, (LIORESAL) 2,000 mcg/mL injection Medtr[employer] Refill Kit # 8566, Lioresal 2000 mcg/ml, 40 ml pump to be refilled as directed miconazole (LOTRIMIN AF, DESENEX) 2 % powder Apply 1 application to affected area twice daily. (Patient taking differently: Apply 1 application to affected area as needed.) polyethylene glycol 3350 (MIRALAX, GLYCOLAX) 17 gram packet 1 Packet once daily. COMPOUNDED PRESCRIPTION Jevity 1.2: 40 ml/hr for 24 hours. Water flushes 100 ml 4 times per day [continous feeding]Jevity 1.2: 4 cans per day (948ml total volume) as tolerated 4 feeds per day. 50 ml water flushes before and after feed [bolus feeding] (Patient taking differently: Jevity 1.0: 40 ml/hr for 24 hours. Water flushes 100 ml 4 times per day [continous feeding] Jevity 1.0: 4 cans per day (948ml total volume) as tolerated 4 feeds per day. 50 ml water flushes before and after feed [bolus feeding]) pantoprazole (PROTONIX) 40 mg/20 mL 20 mg by PEG route twice daily before meals (0600/1600). LACTOBACILLUS ACIDOPHILUS (LACTOBACILL.ACIDOPHILUS, BULK, MISC) 1 capsule by PEG route once daily. cetirizine (ZYRTEC) 10 mg tablet Take 1 tablet by mouth once daily. (Patient taking differently: 10 mg by PEG route once daily.) magnesium hydroxide (MILK OF MAGNESIA) 400 mg/5 mL suspension Take 30 mL by mouth once daily as needed. (Patient taking differently: 30 mL by PEG route once daily as needed.) PHENobarbital 20 mg/5 mL elixir Give 15 ml twice a day. (Patient taking differently: 60 mg by PEG route twice daily. Give 15 ml twice a day.) No current facility-administered medications for this visit. Allergies: Codeine; Flagyl [Metronidazole Hcl]; Morphine; Propulsid Social History: Social History Marital status: Single Spouse name: Years of education: Number of children: Social History Main Topics Smoking status: Never Smoker Smokeless tobacco: Never Used Family History: FAMILY HISTORY Problem Relation Age of Onset - other (HIV+) Mother after blood transfusion for miscarriage; on HAART - other (Hep C) Mother after blood transfusion for miscarriage - other (cryoglobulinemia) Mother on interferon for Hep C - other (HTN) Mother - Ischemic Heart Disease Father - other (HTN) Father REVIEW OF SYSTEMS: Constitutional: No recent fever or weight loss Skin: baseline Eyes: Does not use glasses or contact lenses ENMT: Does not use dentures Endocrine: Denies history of Type l or Type ll diabetes mellitus, Denies history of Thyroid disease CV: Has chronic leg swelling, cardiac workup negative Respiratory: frequent aspiration pneumonia Gastrointestinal: G-tube and colostomy in place Genitourinary: baseline Musculoskeletal: Spastic Neurological: baseline Psychiatric No hx substance abuse PHYSICAL EXAMINATION: Vitals: Resp 20 Ht 152.4 cm (5') Wt 77.6 kg (171 lb) SpO2 97% BMI 33.40 kg/m? Constitutional: obese, wheelchair-bound Skin: [place], warm, dry, no lesions or rashes Head, Face, Neck: Normocephalic/atraumatic Eyes: Clear conjunctiva, non-icteric CV: NA Respiratory: prominent upper airway sounds, drooling Abdomen: Abdomen soft, nontender. Surgical incision c/d/i, pump palpable. No erythema/fluctuance/tenderness. Vascular: leg edema, wrapped Musculoskeletal: See exam FOCUSED NEUROLOGIC EXAM Awake, in wheelchair Looks around, appears to attend, EO spont PERRL Mouth open, drooling NO voluntary movement of extremities observed RUE: mAW 2 in shoulder, 3 elbow, 2 wrist LUE: mAW 1+ shoulder, 1 elbow, 1 wrist RLE 2 knee extensors, minimal remainder LLE 2 knee extensors, minimal remainder MEDICAL DECISION MAKING Data Review: [facility] records reviewed Diagnosis: No diagnosis found. Treatment Options and Risks: Indicated for baclofen pump replacement due to pump end of life. Discussed treatment options with patient. Attending Note: Elizalde findings confirmed. Patient examined. Discussed with the resident and the patient. Plan as outlined. Duarte March MD There was a discrepancy in the past with the refill. I would favor a side port aspiration prior to his replacement to ensure the catheter is patent. I will discuss with Dr. Gonzalez. Duarte March MD CNOV Observed: 11/22/2017 Status: COMPLETED Source: [place] 1:00 PM [facility] REPOSITORY Office Visit ([facility]N) KRISS MICHAEL ([id number]) 1980 M Date Time Provider Department 11/22/17 1:00 PM DUARTE MARCH) [facility]N During your visit today, we recorded the following information about you: Respiration Weight Height 20/minute 77.6 kg 1.524 m Alfredo Montano RN, RN 11/22/2017 12:24 PM Signed Intake information documented in the prior visit with Estefania Gonzalez MD today. RE Jenkins MD 11/23/2017 10:17 AM Signed Referring physician: Estefania Gonzalez MD SUBJECTIVE: Kriss Michael presents for consideration of baclofen pump replacement due to approaching battery end-of-life for pump. He is a 37 year old male with a history of cerebral palsy and spastic quadriparesis. Follows in spasticity clinic with Dr. Gonzalez and has home refills performed by [facility]. He originally had IT baclofen pump placed at age [address] Glass in 07/1999. History as follows: 08/11/1999: pump placed (L3-4 interspace, catheter cephalad to T8-9) 06/22/2005: removal of catheter and pump due to ulceration in pump area leading to exposure of pump 07/02/2005: CSF leak from lumbar wound, lumbar wound revision 07/16/2005: Placement of pump and catheter (L3-4 interspace, catheter to T8), pump placed in area of previous pump 03/08/2012: pump replacement due to pump end of life, reactive scar and fat overlying pump causing difficult access Current pump settings can be found in Dr. Gonzalez's clinic note on 11/22/17. Patient's family reports that the pump has been very helpful for Kriss and has made a big difference in positioning him. He undergoes botox injections as well. He frequently aspirates and has had multiple admissions and ICU stays for aspiration pneumonia. He is prone to c. Diff due to many courses of antibiotics. He takes his diet through a G-tube and he has a colostomy. At baseline he watches TV, reacts to family members and differentiates between people, is largely nonverbal, and has very little voluntary movement. He has not had any recent febrile illnesses and the family has no concerns regarding his surgical incisions. 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 LORazepam (ATIVAN) 1 mg tablet Take 1 mg by mouth every 8 hours as needed. baclofen (LIORESAL) 20 mg tablet 1 tablet three times daily as needed. For severe spasms or signs of baclofen withdrawal onabotulinum toxin type A (BOTOX) 100 unit solr Inject 800 Units intramuscularly every 3 months. At [facility] sennosides (SENNA) 8.8 mg/5 mL syrup Take 5 mL by mouth once daily as needed. lactulose (DUPHALAC, CONSTULOSE) 10 gram/15 mL solution Take 7.5 g by mouth once daily as needed. potassium chloride 20 mEq/15 mL solution Take 20 mEq by mouth once daily as needed. baclofen, LIORESAL, (LIORESAL) 2,000 mcg/mL injection [employer] Refill Kit # 8566, Lioresal 2000 mcg/ml, 40 ml pump to be refilled as directed miconazole (LOTRIMIN AF, DESENEX) 2 % powder Apply 1 application to affected area twice daily. (Patient taking differently: Apply 1 application to affected area as needed.) polyethylene glycol 3350 (MIRALAX, GLYCOLAX) 17 gram packet 1 Packet once daily. COMPOUNDED PRESCRIPTION Jevity 1.2: 40 ml/hr for 24 hours. Water flushes 100 ml 4 times per day [continous feeding]Jevity 1.2: 4 cans per day (948ml total volume) as tolerated 4 feeds per day. 50 ml water flushes before and after feed [bolus feeding] (Patient taking differently: Jevity 1.0: 40 ml/hr for 24 hours. Water flushes 100 ml 4 times per day [continous feeding] Jevity 1.0: 4 cans per day (948ml total volume) as tolerated 4 feeds per day. 50 ml water flushes before and after feed [bolus feeding]) pantoprazole (PROTONIX) 40 mg/20 mL 20 mg by PEG route twice daily before meals (0600/1600). LACTOBACILLUS ACIDOPHILUS (LACTOBACILL.ACIDOPHILUS, BULK, MISC) 1 capsule by PEG route once daily. cetirizine (ZYRTEC) 10 mg tablet Take 1 tablet by mouth once daily. (Patient taking differently: 10 mg by PEG route once daily.) magnesium hydroxide (MILK OF MAGNESIA) 400 mg/5 mL suspension Take 30 mL by mouth once daily as needed. (Patient taking differently: 30 mL by PEG route once daily as needed.) PHENobarbital 20 mg/5 mL elixir Give 15 ml twice a day. (Patient taking differently: 60 mg by PEG route twice daily. Give 15 ml twice a day.) No current facility-administered medications for this visit. Allergies: Codeine; Flagyl [Metronidazole Hcl]; Morphine; Propulsid Social History: Social History Marital status: Single Spouse name: Years of education: Number of children: Social History Main Topics Smoking status: Never Smoker Smokeless tobacco: Never Used Family History: FAMILY HISTORY Problem Relation Age of Onset - other (HIV+) Mother after blood transfusion for miscarriage; on HAART - other (Hep C) Mother after blood transfusion for miscarriage - other (cryoglobulinemia) Mother on interferon for Hep C - other (HTN) Mother - Ischemic Heart Disease Father - other (HTN) Father REVIEW OF SYSTEMS: Constitutional: No recent fever or weight loss Skin: baseline Eyes: Does not use glasses or contact lenses ENMT: Does not use dentures Endocrine: Denies history of Type l or Type ll diabetes mellitus, Denies history of Thyroid disease CV: Has chronic leg swelling, cardiac workup negative Respiratory: frequent aspiration pneumonia Gastrointestinal: G-tube and colostomy in place Genitourinary: baseline Musculoskeletal: Spastic Neurological: baseline Psychiatric No hx substance abuse PHYSICAL EXAMINATION: Vitals: Resp 20 Ht 152.4 cm (5') Wt 77.6 kg (171 lb) SpO2 97% BMI 33.40 kg/m? Constitutional: obese, wheelchair-bound Skin: [place], warm, dry, no lesions or rashes Head, Face, Neck: Normocephalic/atraumatic Eyes: Clear conjunctiva, non-icteric CV: NA Respiratory: prominent upper airway sounds, drooling Abdomen: Abdomen soft, nontender. Surgical incision c/d/i, pump palpable. No erythema/fluctuance/tenderness. Vascular: leg edema, wrapped Musculoskeletal: See exam FOCUSED NEUROLOGIC EXAM Awake, in wheelchair Looks around, appears to attend, EO spont PERRL Mouth open, drooling NO voluntary movement of extremities observed RUE: mAW 2 in shoulder, 3 elbow, 2 wrist LUE: mAW 1+ shoulder, 1 elbow, 1 wrist RLE 2 knee extensors, minimal remainder LLE 2 knee extensors, minimal remainder MEDICAL DECISION MAKING Data Review: [facility] records reviewed Diagnosis: No diagnosis found. Treatment Options and Risks: Indicated for baclofen pump replacement due to pump end of life. Discussed treatment options with patient. Attending Note: Elizalde findings confirmed. Patient examined. Discussed with the resident and the patient. Plan as outlined. Duarte March MD There was a discrepancy in the past with the refill. I would favor a side port aspiration prior to his replacement to ensure the catheter is patent. I will discuss with Dr. Gonzalez. Duarte March MD Referring Provider: SELF [[id number]] Allergies As of Date: 11/22/2017 Noted Allergy Reaction CODEINE 06/22/2005 14 - Other: See Comments Comments: hyperactivity per mom FLAGYL (METRONIDAZOLE HCL) 05/08/2014 2 - Rash MORPHINE 06/22/2005 14 - Other: See Comments Comments: causes hyperactivity per mom PROPULSID 02/08/2012 2 - Rash Date Reviewed: 11/22/2017 Reviewed by: Issa Padron - Fully Assessed Reason for Visit: New Patient [172] Cmt: Consult Visit Diagnosis:Spasticity [R25.2] Prescriptions as of 11/22/2017 Sig: FUROSEMIDE 20 MG TABLET 20 mg by PEG route once daily. LORAZEPAM 1 MG TABLET Take 1 mg by mouth every 8 ho* BACLOFEN 20 MG TABLET 1 tablet three times daily as* ONABOTULINUMTOXINA 100 UNIT S* Inject 800 Units intramuscula* SENNOSIDES 8.8 MG/5 ML SYRUP Take 5 mL by mouth once daily* LACTULOSE 10 GRAM/15 ML ORAL * Take 7.5 g by mouth once keshav* POTASSIUM CHLORIDE 20 MEQ/15 * Take 20 mEq by mouth once jenni* BACLOFEN 2,000 MCG/ML INTRATH* [employer] Refill Kit # 8566, * MICONAZOLE NITRATE 2 % TOPICA* Apply 1 application to affect* Patient taking differently: Apply 1 application to affect* POLYETHYLENE GLYCOL 3350 17 G* 1 Packet once daily. COMPOUNDED PRESCRIPTION Jevity 1.2: 40 ml/hr for 24 h* Patient taking differently: Jevity 1.0: 40 ml/hr for 24 h* PANTOPRAZOLE ORAL LIQUID 40 M* 20 mg by PEG route twice keshav* LACTOBACILL.ACIDOPHILUS (BULK* 1 capsule by PEG route once d* CETIRIZINE 10 MG TABLET Take 1 tablet by mouth once d* Patient taking differently: 10 mg by PEG route once daily. MAGNESIUM HYDROXIDE 400 MG/5 * Take 30 mL by mouth once keshav* Patient taking differently: 30 mL by PEG route once daily* PHENOBARBITAL 20 MG/5 ML (4 M* Give 15 ml twice a day. Patient taking differently: 60 mg by PEG route twice keshav* Problem List As Of Date 11/22/2017 Noted Resolved ASA CLASS III [1003] INVALID FOR* Infantile cerebral palsy (HCC) [G80.9] INVALID FOR* Priority: L More... Septic shock [A41.9, R65.21] INVALID FOR*03/09/2012 Priority: B More... Acute respiratory failure [J96.00] INVALID FOR*03/09/2012 Priority: E More... SUMMARY [V999.95] INVALID FOR*04/11/2011 Priority: A Transaminitis [R74.0] INVALID FOR*03/09/2012 Priority: M More... Pancreatitis [K85.90] INVALID FOR*03/09/2012 Priority: M More... Dilatation of colon [K59.39] INVALID FOR*03/09/2012 Priority: L More... Upper GI bleed [K92.2] INVALID FOR*03/09/2012 Priority: C More... Renal failure, acute [N17.9] INVALID FOR*03/09/2012 Priority: A More... Aspiration of gastric contents [T17.910A] INVALID FOR*03/09/2012 Priority: D More... More... Hypernatremia [E87.0] INVALID FOR*03/09/2012 Priority: F More... Congenital quadriplegia [G80.8] INVALID FOR* Hypoxia [R09.02] INVALID FOR*03/11/2012 More... 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 Withdrawal syndrome [F19.939] INVALID FOR*12/12/2012 More... Constipation [K59.00] INVALID FOR*03/11/2012 More... Swallowing impairment [R13.10] INVALID FOR* More... Sepsis [A41.9] INVALID FOR*12/17/2012 Priority: B More... Gastritis, acute [K29.00] INVALID FOR* Priority: C More... Acute respiratory failure with hypoxia [J96.01] INVALID FOR*12/17/2012 Priority: A More... C. difficile colitis [A04.72] INVALID FOR* Priority: A More... SUMMARY [V999.95] INVALID FOR* Priority: Mild More... Transaminitis [R74.0] INVALID FOR* Sepsis [A41.9] INVALID FOR* Priority: B More... Hyperthermia [R50.9] INVALID FOR* Priority: A More... Seizures (HCC) [R56.9] INVALID FOR* Priority: E More... Constipation [K59.00] INVALID FOR* Priority: C More... Vomiting [R11.10] INVALID FOR* Priority: B More... Skin rash [R21] INVALID FOR* Priority: D More... Post-op pain [G89.18] INVALID FOR* More... DVT prophylaxis [RGN5128] INVALID FOR* Priority: J More... Clostridium difficile infection [B96.89] INVALID FOR* Priority: B More... Chronic constipation [K59.09] INVALID FOR* Priority: D More... Congenital cerebral palsy (HCC) [G80.9] INVALID FOR* Priority: E More... Recurrent aspiration pneumonia (HCC) [J69.0] INVALID FOR* Priority: C More... SUMMARY INVALID FOR* Priority: A More... Hyponatremia [E87.1] INVALID FOR* Priority: F More... More... Hematemesis [K92.0] INVALID FOR* Priority: H More... On tube feeding diet [Z78.9] INVALID FOR* Priority: I More... Visit Notes: >> Alfredo (Rn) RE Montano WedNov 22, 2017 12:21 PM Status: Signed Intake information documented in the prior visit with Estefania Gonzalez MD today. Alfredo Montano RN Encounter Status:Closed by DUARTE MARCH MD on 11/23/17 CNOV Observed: 11/22/2017 Status: COMPLETED Source: [place] 12:00 PM [facility] REPOSITORY Office Visit (NEMSMN) KRISS MICHAEL ([id number]) 1980 M Date Time Provider Department 11/22/17 12:00 PM ESTEFANIA GONZALEZ During your visit today, we recorded the following information about you: Estefania Gonzalez MD 11/22/2017 11:04 AM Signed INTRATHECAL BACLOFEN FOLLOW-UP AND REFILL RECORD Written consent for ITB therapy obtained on 08/03/2012. Patient accompanied by his parents and caregiver, Morenita. PAST SURGICAL HISTORY Procedure Laterality Date - BACLOFEN PUMP REFILL AND MAINT 1999 intrathecal - IMPLANT/REPLACE IT PROGR PUMP 03/08/12 Replacement due to end of battery life, SynchroMed II, 40 ml pump - MIDLINE INSERTION/CONSULT 11/27/2014 - PEG TUBE - SPECIFY since age 15 HISTORY SINCE LAST VISIT: -Spasticity: Fine. He has occasional spasms. He is here today for follow up as he is approaching end of battery life for his pump. He has home refills performed by [facility]. -The patient was diagnosed with pneumonia in August and hospitalized. He continues with lower extremity edema that was believed to be positional. He had extensive diagnosis including cardiac workup that was negative. He was started on lasix by his pcp and has his legs wrapped today. Use of oral medications for spasticity: None SPASM SCALE (patient report): Occasional spasms Pain related to spasticity or spasms: No pain per mother Is the patient having any pain? No 0 on a scale of 0 to 10 Safety concerns: domestic violence, living situation, and safety at home: no; has IO waiver through state board of ; 2 aides one day a wk each, also care agency sends aides. Driving issues: NA Risk of Falls: NA Exercise/stretching: Performs stretching exercises twice daily Sleep disturbance: Varies per patients, occasional difficulties Mood: Good Bowel symptoms: Constipation, with MOM; on a regular bowel medication regimen, scheduled for ileostomy on 11/06/14 Bladder symptoms: Normal wears Attends; no recent UTIs, on lasix for lower extremity edema Nutrition: has PEG Tube since 1993; tube feeding Skin Integrity: Intact EXAM: Position: Sitting Motor Function: Strength: No volitional movement in LEs Spasticity Right Left Shoulder 2 1+ Elbow fl/ext 1 / 1 1 / 2 Wrist fl/ext 2 / 0 1 / 0 Finger fl/ext 2 / 0 1 / 0 Hip adductors 0 0 Knee extensors 2 2 Knee flexors 0 0 Ankle plantarflexors 0 0 *Contractures noted in bilateral knee extensors MODIFIED LUIS SCALE 0 - No increase in tone 1 - Slight increase in tone (catch and release at end of ROM) 1+ - Slight increase in tone, manifested by a catch, followed by minimal resistance throughout remainder (less than half of ROM) 2 - Marked increase in tone through most of the ROM, but affected part(s) easily moved 3 - Considerable increase in tone; passive movement difficult 4 - Affected part(s) rigid in flexion or extension SPASMS observed: Rt: No Lt: No Timed 25 foot walk: NA, the patient is non-ambulatory Assistance Required: Manual wheelchair Gait is: NA [place] Ambulation Index (AI) score = 9 restricted to wheelchair, unable to self transfer Patient ID verified using 2 identifiers: Yes Procedure: ITB pump reading without adjustment Current Drug: Lioresal Drug Concentration: 2000 mcg/ml Current Rate: 734.1 mcg/day MODE: simple continuous Rn Telephonic Residual: 26.1 ml Actual Residual: NA Pump Refilled: No Program Change: No Drug: Lioresal Drug Concentration: 2000 mcg/ml NEW RATE: 734.1 mcg./day MODE: simple continuous Bolus Given: No Estimated HUBERT: 12 months [place] alarm date: 01/21/2018 ASSESSMENT: (G80.9) Infantile cerebral palsy (HCC) (primary encounter diagnosis) (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 No changes in ITB rate were made today. He will be seeing neurosurgery for evaluation regarding ITB pump replacement due to end of battery life for his pump. He will follow up 2 weeks after his surgery for ITB pump and suture removal by neurosurgery. PLAN: -No change in ITB rate today. -Evaluation by neurosurgery for ITB pump replacement surgery due to end of battery life. -Please mail note to Timmy Perkins MD. -Please fax note and printout to [facility]; ATTN: Leeanne Brown RN. F/U: ITB f/u 2 weeks after surgery; Continue home refills performed by [facility]. Next ITB refill is to be performed in late 12/2017. Estefania Gonzalez MD Referring Provider: ISSA PADRON [[id number]] Allergies As of Date: 11/22/2017 Noted Allergy Reaction CODEINE 06/22/2005 14 - Other: See Comments Comments: hyperactivity per mom FLAGYL (METRONIDAZOLE HCL) 05/08/2014 2 - Rash MORPHINE 06/22/2005 14 - Other: See Comments Comments: causes hyperactivity per mom PROPULSID 02/08/2012 2 - Rash Date Reviewed: 11/22/2017 Reviewed by: Estefania Gonzalez - Fully Assessed Reason for Visit: Spasticity [487] ITB Pump Follow Up [Other] Primary Visit Diagnosis:Infantile cerebral palsy (HCC) [G80.9] Other Visit Diagnosis:Spastic quadriparesis, congenital (HCC) [G80.0] Prescriptions as of 11/22/2017 Sig: LORAZEPAM 1 MG TABLET Take 1 mg by mouth every 8 ho* BACLOFEN 20 MG TABLET 1 tablet three times daily as* ONABOTULINUMTOXINA 100 UNIT S* Inject 800 Units intramuscula* SENNOSIDES 8.8 MG/5 ML SYRUP Take 5 mL by mouth once daily* LACTULOSE 10 GRAM/15 ML ORAL * Take 7.5 g by mouth once keshav* POTASSIUM CHLORIDE 20 MEQ/15 * Take 20 mEq by mouth once jenni* BACLOFEN 2,000 MCG/ML INTRATH* [facility] Refill Kit # 8566, * MICONAZOLE NITRATE 2 % TOPICA* Apply 1 application to affect* Patient taking differently: Apply 1 application to affect* POLYETHYLENE GLYCOL 3350 17 G* 1 Packet once daily. COMPOUNDED PRESCRIPTION Jevity 1.2: 40 ml/hr for 24 h* Patient taking differently: Jevity 1.0: 40 ml/hr for 24 h* PANTOPRAZOLE ORAL LIQUID 40 M* 20 mg by PEG route twice keshav* LACTOBACILL.ACIDOPHILUS (BULK* 1 capsule by PEG route once d* CETIRIZINE 10 MG TABLET Take 1 tablet by mouth once d* Patient taking differently: 10 mg by PEG route once daily. MAGNESIUM HYDROXIDE 400 MG/5 * Take 30 mL by mouth once keshav* Patient taking differently: 30 mL by PEG route once daily* PHENOBARBITAL 20 MG/5 ML (4 M* Give 15 ml twice a day. Patient taking differently: 60 mg by PEG route twice keshav* Problem List As Of Date 11/22/2017 Noted Resolved ASA CLASS III [1003] INVALID FOR* Infantile cerebral palsy (HCC) [G80.9] INVALID FOR* Priority: L More... Septic shock [A41.9, R65.21] INVALID FOR*03/09/2012 Priority: B More... Acute respiratory failure [J96.00] INVALID FOR*03/09/2012 Priority: E More... SUMMARY [V999.95] INVALID FOR*04/11/2011 Priority: A Transaminitis [R74.0] INVALID FOR*03/09/2012 Priority: M More... Pancreatitis [K85.90] INVALID FOR*03/09/2012 Priority: M More... Dilatation of colon [K59.39] INVALID FOR*03/09/2012 Priority: L More... Upper GI bleed [K92.2] INVALID FOR*03/09/2012 Priority: C More... Renal failure, acute [N17.9] INVALID FOR*03/09/2012 Priority: A More... Aspiration of gastric contents [T17.910A] INVALID FOR*03/09/2012 Priority: D More... More... Hypernatremia [E87.0] INVALID FOR*03/09/2012 Priority: F More... Congenital quadriplegia [G80.8] INVALID FOR* Hypoxia [R09.02] INVALID FOR*03/11/2012 More... 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 Withdrawal syndrome [F19.939] INVALID FOR*12/12/2012 More... Constipation [K59.00] INVALID FOR*03/11/2012 More... Swallowing impairment [R13.10] INVALID FOR* More... Sepsis [A41.9] INVALID FOR*12/17/2012 Priority: B More... Gastritis, acute [K29.00] INVALID FOR* Priority: C More... Acute respiratory failure with hypoxia [J96.01] INVALID FOR*12/17/2012 Priority: A More... C. difficile colitis [A04.72] INVALID FOR* Priority: A More... SUMMARY [V999.95] INVALID FOR* Priority: Mild More... Transaminitis [R74.0] INVALID FOR* Sepsis [A41.9] INVALID FOR* Priority: B More... Hyperthermia [R50.9] INVALID FOR* Priority: A More... Seizures (HCC) [R56.9] INVALID FOR* Priority: E More... Constipation [K59.00] INVALID FOR* Priority: C More... Vomiting [R11.10] INVALID FOR* Priority: B More... Skin rash [R21] INVALID FOR* Priority: D More... Post-op pain [G89.18] INVALID FOR* More... DVT prophylaxis [TGF3471] INVALID FOR* Priority: J More... Clostridium difficile infection [B96.89] INVALID FOR* Priority: B More... Chronic constipation [K59.09] INVALID FOR* Priority: D More... Congenital cerebral palsy (HCC) [G80.9] INVALID FOR* Priority: E More... Recurrent aspiration pneumonia (HCC) [J69.0] INVALID FOR* Priority: C More... SUMMARY INVALID FOR* Priority: A More... Hyponatremia [E87.1] INVALID FOR* Priority: F More... More... Hematemesis [K92.0] INVALID FOR* Priority: H More... On tube feeding diet [Z78.9] INVALID FOR* Priority: I More... Disposition: Return if symptoms worsen or fail to improve, for ITB pump follow up 2 weeks after surgery. Follow-up and Disposition History Recorded Encounter Status:Closed by ESTEFANIA GONZALEZ MD on 11/22/17 [place] Observed: 11/22/2017 Status: COMPLETED Source: [place] 11:15 AM [facility] REPOSITORY Office Visit (NEMSMN) KRISS MICHAEL ([id number]) 1980 M Date Time Provider Department 11/22/17 11:15 AM ISSA PADRON During your visit today, we recorded the following information about you: Issa Padron MD 11/22/2017 1:05 PM Signed BOTULINUM TOXIN THERAPY - Informed consent was signed on 08/03/12 The patient was accompanied by his parents and Morenita rhoades. Current complaints / history since last visit: Mr. Michael was last seen in the spasticity clinic for botulinum toxin injections on 08/17/17. The patient's mother reports that the injections improved stiffness and range of motion until mid-October. He is more comfortable, and positioning, ease of care and hygiene improve after the injections take effect. He gets stretched twice daily. He was hospitalized in August for pneumonia, possibly related to aspiration. He has been having lower extremity edema for which his legs are wrapped. BT therapy effective? Yes on stiffness, on range of motion, ease of care and hygiene, positioning, and comfort Duration of benefit: 2 1/2 months BT therapy well tolerated? Yes Spasm scale: rare spasms (only a couple in the feet since the last visit) Pain related to spasticity: No 0 on a scale of 0 to 10 per mother Nutritional concerns: Yes, dysphagia, predominantly receiving nutrition via G-tube, still on supplemental nutrition, max of 4 cans of Nutren/day, appetite- no pleasure feeding by mouth lately, weight stable, [id number] lbs (vs. 155 lb at last visit) partially due to swelling Driving issues: N/A does not drive Safety concerns regarding living situations and safety at home: No, he lives with his parents. They live in a ranch home with a basement. There is an elevator. His parents are his primary care givers and he has about 60 hours of caregivers a week. Current wheelchair is four years old since 04/2014. He requires total assistance with ADLs and IADLs; this is provided by family and home care. Risk of falls: N/A, transfers with maximal assistance or via Juanita lift. Examination: Pitting edema noted in both upper and lower extremities. Strength: Unable to assess formally. Voluntary movement observed in the right upper extremity during the injections. ? Spasticity Right Left Shoulder 3 2 Elbow fl/ext 0 / 0 0 / 0 Wrist fl/ext 3 / 0 0 / 0 Finger fl/ext 1+ / 0 0 / 0 Hip adductors 0 0 Knee extensors 2 0 Knee flexors 0 0 Ankle plantarflexors 0 0 Modified Luis Scale 0 - No increase in tone 1 - Slight increase in tone (catch and release at end of ROM) 1+ - Slight increase in tone, manifested by a catch, followed by minimal resistance throughout remainder (less than half of ROM) 2 - Marked increase in tone through most of the ROM, but affected part(s) easily moved 3 - Considerable increase in tone; passive movement difficult 4 - Affected part(s) rigid in flexion or extension SPASMS observed: RUE: No LUE: No RLE: No LLE: No Timed 25 foot walk: N/A Assistance Required: wheelchair Gait is: N/A A.I.: 9 - Restricted to wheelchair, dependent for transfers Informed consent was signed on 07/03/12 Procedure: Botulinum Toxin injections Pt ID verified with patient with 2 identifiers: Yes Procedure verified with patient's parents: Yes Procedure confirmed with physician and work station support specialist: Yes Personnel involved in the procedure: Physician: Issa Padron MD Executive Steward: Yue Huffman RN [employer] / SAFETY CHECKLIST Procedure to be performed: botulinum toxin injections Sign in Communication: Completed Time Out: Team Confirms the Correct Patient, Correct Procedure, Correct Site and Site Marking, Correct Position (if applicable). Time: 11:05 AM Affirmation of Time Out: N/A Sign Out Discussion: Completed The patient was positioned sitting in his wheelchair. After skin preparation with alcohol swabs, a total dose of 600 units of Botox were injected as follows: Muscle Limb Dose Guidance Comments FDP RUE 50 units EMG 1 site FCU RUE 50 units EMG 1 site FCR RUE 50 units EMG 1 site FPL RUE 25 units EMG 1 site Adductor pollicis RUE 25 units EMG 1 site Quadriceps RLE 100 units EMG 2 sites FDP LUE 50 units EMG 1 site FCU LUE 50 units EMG 1 site FCR LUE 50 units EMG 1 site FPL LUE 25 units EMG 1 site Adductor pollicis LUE 25 units EMG 1 site Quadriceps LLE 100 units EMG 2 sites Dilution: 100 units / 1 mL Lot #: [id number] (6 vials) Expiration date: 05/2020 The injections were well tolerated. 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 Botulinum toxin injections were effective and well tolerated. I discussed treatment options and Mr. Michael's parents requested to keep the total dose and dose distribution unchanged. After discussion, I repeated BT injections without immediate complications. Mr. Michael saw Dr. Gonzalez earlier this morning for baclofen pump management and will see Dr. March later today to discuss baclofen pump replacement. Plan: 1 - Repeat injections in 3 months, 600 units. 2 - Continue stretching exercises daily. 3 - Visit note faxed to Timmy Perkins MD Time spent with patient: 45 mn. MD Issa Rodrigues MD 11/22/2017 11:33 AM Signed You have received botulinum toxin injections today. The skin around the site of injections should be monitored for a couple of days. If redness or swelling occur, the skin should be examined by a health child care development specialist to rule out infection. If you experience pain in the muscles injected over the next few days, you can take Tylenol to control the pain (unless contra-indicated). Please call our office at [phone] with any questions or concerns. Estefania Gonzalez MD Referring Provider: ISSA PADRON [[id number]] Allergies As of Date: 11/22/2017 Noted Allergy Reaction CODEINE 06/22/2005 14 - Other: See Comments Comments: hyperactivity per mom FLAGYL (METRONIDAZOLE HCL) 05/08/2014 2 - Rash MORPHINE 06/22/2005 14 - Other: See Comments Comments: causes hyperactivity per mom PROPULSID 02/08/2012 2 - Rash Date Reviewed: 11/22/2017 Reviewed by: Issa Padron - Fully Assessed Reason for Visit: Spasticity [487] botulinum toxin injections [Other] Primary Visit Diagnosis:Spastic quadriparesis ([facility]) [G82.50] Other Visit Diagnosis:Congenital cerebral palsy ([facility]) [G80.9] Prescriptions as of 11/22/2017 Sig: LORAZEPAM 1 MG TABLET Take 1 mg by mouth every 8 ho* BACLOFEN 20 MG TABLET 1 tablet three times daily as* ONABOTULINUMTOXINA 100 UNIT S* Inject 800 Units intramuscula* SENNOSIDES 8.8 MG/5 ML SYRUP Take 5 mL by mouth once daily* LACTULOSE 10 GRAM/15 ML ORAL * Take 7.5 g by mouth once keshav* POTASSIUM CHLORIDE 20 MEQ/15 * Take 20 mEq by mouth once jenni* BACLOFEN 2,000 MCG/ML INTRATH* [employer] Refill Kit # 8566, * MICONAZOLE NITRATE 2 % TOPICA* Apply 1 application to affect* Patient taking differently: Apply 1 application to affect* POLYETHYLENE GLYCOL 3350 17 G* 1 Packet once daily. COMPOUNDED PRESCRIPTION Jevity 1.2: 40 ml/hr for 24 h* Patient taking differently: Jevity 1.0: 40 ml/hr for 24 h* PANTOPRAZOLE ORAL LIQUID 40 M* 20 mg by PEG route twice keshav* LACTOBACILL.ACIDOPHILUS (BULK* 1 capsule by PEG route once d* CETIRIZINE 10 MG TABLET Take 1 tablet by mouth once d* Patient taking differently: 10 mg by PEG route once daily. MAGNESIUM HYDROXIDE 400 MG/5 * Take 30 mL by mouth once keshav* Patient taking differently: 30 mL by PEG route once daily* PHENOBARBITAL 20 MG/5 ML (4 M* Give 15 ml twice a day. Patient taking differently: 60 mg by PEG route twice keshav* Problem List As Of Date 11/22/2017 Noted Resolved ASA CLASS III [1003] INVALID FOR* Infantile cerebral palsy (HCC) [G80.9] INVALID FOR* Priority: L More... Septic shock [A41.9, R65.21] INVALID FOR*03/09/2012 Priority: B More... Acute respiratory failure [J96.00] INVALID FOR*03/09/2012 Priority: E More... SUMMARY [V999.95] INVALID FOR*04/11/2011 Priority: A Transaminitis [R74.0] INVALID FOR*03/09/2012 Priority: M More... Pancreatitis [K85.90] INVALID FOR*03/09/2012 Priority: M More... Dilatation of colon [K59.39] INVALID FOR*03/09/2012 Priority: L More... Upper GI bleed [K92.2] INVALID FOR*03/09/2012 Priority: C More... Renal failure, acute [N17.9] INVALID FOR*03/09/2012 Priority: A More... Aspiration of gastric contents [T17.910A] INVALID FOR*03/09/2012 Priority: D More... More... Hypernatremia [E87.0] INVALID FOR*03/09/2012 Priority: F More... Congenital quadriplegia [G80.8] INVALID FOR* Hypoxia [R09.02] INVALID FOR*03/11/2012 More... 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 Withdrawal syndrome [F19.939] INVALID FOR*12/12/2012 More... Constipation [K59.00] INVALID FOR*03/11/2012 More... Swallowing impairment [R13.10] INVALID FOR* More... Sepsis [A41.9] INVALID FOR*12/17/2012 Priority: B More... Gastritis, acute [K29.00] INVALID FOR* Priority: C More... Acute respiratory failure with hypoxia [J96.01] INVALID FOR*12/17/2012 Priority: A More... C. difficile colitis [A04.72] INVALID FOR* Priority: A More... SUMMARY [V999.95] INVALID FOR* Priority: Mild More... Transaminitis [R74.0] INVALID FOR* Sepsis [A41.9] INVALID FOR* Priority: B More... Hyperthermia [R50.9] INVALID FOR* Priority: A More... Seizures (HCC) [R56.9] INVALID FOR* Priority: E More... Constipation [K59.00] INVALID FOR* Priority: C More... Vomiting [R11.10] INVALID FOR* Priority: B More... Skin rash [R21] INVALID FOR* Priority: D More... Post-op pain [G89.18] INVALID FOR* More... DVT prophylaxis [TLV7723] INVALID FOR* Priority: J More... Clostridium difficile infection [B96.89] INVALID FOR* Priority: B More... Chronic constipation [K59.09] INVALID FOR* Priority: D More... Congenital cerebral palsy (HCC) [G80.9] INVALID FOR* Priority: E More... Recurrent aspiration pneumonia (HCC) [J69.0] INVALID FOR* Priority: C More... SUMMARY INVALID FOR* Priority: A More... Hyponatremia [E87.1] INVALID FOR* Priority: F More... More... Hematemesis [K92.0] INVALID FOR* Priority: H More... On tube feeding diet [Z78.9] INVALID FOR* Priority: I More... Other instructions from your clinician: You have received botulinum toxin injections today. The skin around the site of injections should be monitored for a couple of days. If redness or swelling occur, the skin should be examined by a health child care development specialist to rule out infection. If you experience pain in the muscles injected over the next few days, you can take Tylenol to control the pain (unless contra-indicated). Please call our office at [phone] with any questions or concerns. Estefania Gonzalez MD Disposition: Return in about 3 months (around 02/22/2018) for Botox. Follow-up and Disposition History Recorded Letter Text Encounter Status:Closed by ISSA PADRON MD on 11/22/17 PROGRESS Observed: 11/22/2017 Status: COMPLETED Source: [place] 10:55 AM [facility] [place] REPOSITORY HNO ID: [id number] Author: Issa Padron Service: (none) Author Type: Physician Type: Progress Notes Filed: 11/22/2017 1:05 PM Note Text: BOTULINUM TOXIN THERAPY - Informed consent was signed on 08/03/12 The patient was accompanied by his parents and Morenita rhoades. Current complaints / history since last visit: Mr. Michael was last seen in the spasticity clinic for botulinum toxin injections on 08/17/17. The patient's mother reports that the injections improved stiffness and range of motion until mid-October. He is more comfortable, and positioning, ease of care and hygiene improve after the injections take effect. He gets stretched twice daily. He was hospitalized in August for pneumonia, possibly related to aspiration. He has been having lower extremity edema for which his legs are wrapped. BT therapy effective? Yes on stiffness, on range of motion, ease of care and hygiene, positioning, and comfort Duration of benefit: 2 1/2 months BT therapy well tolerated? Yes Spasm scale: rare spasms (only a couple in the feet since the last visit) Pain related to spasticity: No 0 on a scale of 0 to 10 per mother Nutritional concerns: Yes, dysphagia, predominantly receiving nutrition via G-tube, still on supplemental nutrition, max of 4 cans of Nutren/day, appetite- no pleasure feeding by mouth lately, weight stable, [id number] lbs (vs. 155 lb at last visit) partially due to swelling Driving issues: N/A does not drive Safety concerns regarding living situations and safety at home: No, he lives with his parents. They live in a ranch home with a basement. There is an elevator. His parents are his primary care givers and he has about 60 hours of caregivers a week. Current wheelchair is four years old since 04/2014. He requires total assistance with ADLs and IADLs; this is provided by family and home care. Risk of falls: N/A, transfers with maximal assistance or via Juanita lift. Examination: Pitting edema noted in both upper and lower extremities. Strength: Unable to assess formally. Voluntary movement observed in the right upper extremity during the injections. ? Spasticity Right Left Shoulder 3 2 Elbow fl/ext 0 / 0 0 / 0 Wrist fl/ext 3 / 0 0 / 0 Finger fl/ext 1+ / 0 0 / 0 Hip adductors 0 0 Knee extensors 2 0 Knee flexors 0 0 Ankle plantarflexors 0 0 Modified Luis Scale 0 - No increase in tone 1 - Slight increase in tone (catch and release at end of ROM) 1+ - Slight increase in tone, manifested by a catch, followed by minimal resistance throughout remainder (less than half of ROM) 2 - Marked increase in tone through most of the ROM, but affected part(s) easily moved 3 - Considerable increase in tone; passive movement difficult 4 - Affected part(s) rigid in flexion or extension SPASMS observed: RUE: No LUE: No RLE: No LLE: No Timed 25 foot walk: N/A Assistance Required: wheelchair Gait is: N/A A.I.: 9 - Restricted to wheelchair, dependent for transfers Informed consent was signed on 07/03/12 Procedure: Botulinum Toxin injections Pt ID verified with patient with 2 identifiers: Yes Procedure verified with patient's parents: Yes Procedure confirmed with physician and work station support specialist: Yes Personnel involved in the procedure: Physician: Issa Padron MD Executive Steward: Yue Huffman RN UNIVERSAL PROTOCOL / SAFETY CHECKLIST Procedure to be performed: botulinum toxin injections Sign in Communication: Completed Time Out: Team Confirms the Correct Patient, Correct Procedure, Correct Site and Site Marking, Correct Position (if applicable). Time: 11:05 AM Affirmation of Time Out: N/A Sign Out Discussion: Completed The patient was positioned sitting in his wheelchair. After skin preparation with alcohol swabs, a total dose of 600 units of Botox were injected as follows: Muscle Limb Dose Guidance Comments FDP RUE 50 units EMG 1 site FCU RUE 50 units EMG 1 site FCR RUE 50 units EMG 1 site FPL RUE 25 units EMG 1 site Adductor pollicis RUE 25 units EMG 1 site Quadriceps RLE 100 units EMG 2 sites FDP LUE 50 units EMG 1 site FCU LUE 50 units EMG 1 site FCR LUE 50 units EMG 1 site FPL LUE 25 units EMG 1 site Adductor pollicis LUE 25 units EMG 1 site Quadriceps LLE 100 units EMG 2 sites Dilution: 100 units / 1 mL Lot #: [id number] (6 vials) Expiration date: 05/2020 The injections were well tolerated. 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 Botulinum toxin injections were effective and well tolerated. I discussed treatment options and Mr. Michael's parents requested to keep the total dose and dose distribution unchanged. After discussion, I repeated BT injections without immediate complications. Mr. Michael saw Dr. Gonzalez earlier this morning for baclofen pump management and will see Dr. March later today to discuss baclofen pump replacement. Plan: 1 - Repeat injections in 3 months, 600 units. 2 - Continue stretching exercises daily. 3 - Visit note faxed to Timmy Perkins MD Time spent with patient: 45 mn. Issa Padron MD PROGRESS Observed: 11/22/2017 Status: COMPLETED Source: [place] 10:33 AM [facility] RE[facility] HNO ID: [id number] Author: Estefania Gonzalez Service: (none) Author Type: Physician Type: Progress Notes Filed: 11/22/2017 11:04 AM Note Text: INTRATHECAL BACLOFEN FOLLOW-UP AND REFILL RECORD Written consent for ITB therapy obtained on 08/03/2012. Patient accompanied by his parents and caregiver, Morenita. PAST SURGICAL HISTORY Procedure Laterality Date - BACLOFEN PUMP REFILL AND MAINT 1999 intrathecal - IMPLANT/REPLACE IT PROGR PUMP 03/08/12 Replacement due to end of battery life, SynchroMed II, 40 ml pump - MIDLINE INSERTION/CONSULT 11/27/2014 - PEG TUBE - SPECIFY since age 15 HISTORY SINCE LAST VISIT: -Spasticity: Fine. He has occasional spasms. He is here today for follow up as he is approaching end of battery life for his pump. He has home refills performed by [facility]. -The patient was diagnosed with pneumonia in August and hospitalized. He continues with lower extremity edema that was believed to be positional. He had extensive diagnosis including cardiac workup that was negative. He was started on lasix by his pcp and has his legs wrapped today. Use of oral medications for spasticity: None SPASM SCALE (patient report): Occasional spasms Pain related to spasticity or spasms: No pain per mother Is the patient having any pain? No 0 on a scale of 0 to 10 Safety concerns: domestic violence, living situation, and safety at home: no; has IO waiver through state board of DD; 2 aides one day a wk each, [facility] sends aides. Driving issues: NA Risk of Falls: NA Exercise/stretching: Performs stretching exercises twice daily Sleep disturbance: Varies per patients, occasional difficulties Mood: Good Bowel symptoms: Constipation, with MOM; on a regular bowel medication regimen, scheduled for ileostomy on 11/06/14 Bladder symptoms: Normal wears Attends; no recent UTIs, on lasix for lower extremity edema Nutrition: has PEG Tube since 1993; tube feeding Skin Integrity: Intact EXAM: Position: Sitting Motor Function: Strength: No volitional movement in LEs Spasticity Right Left Shoulder 2 1+ Elbow fl/ext 1 / 1 1 / 2 Wrist fl/ext 2 / 0 1 / 0 Finger fl/ext 2 / 0 1 / 0 Hip adductors 0 0 Knee extensors 2 2 Knee flexors 0 0 Ankle plantarflexors 0 0 *Contractures noted in bilateral knee extensors MODIFIED LUIS SCALE 0 - No increase in tone 1 - Slight increase in tone (catch and release at end of ROM) 1+ - Slight increase in tone, manifested by a catch, followed by minimal resistance throughout remainder (less than half of ROM) 2 - Marked increase in tone through most of the ROM, but affected part(s) easily moved 3 - Considerable increase in tone; passive movement difficult 4 - Affected part(s) rigid in flexion or extension SPASMS observed: Rt: No Lt: No Timed 25 foot walk: NA, the patient is non-ambulatory Assistance Required: Manual wheelchair Gait is: NA Linganore Ambulation Index (AI) score = 9 restricted to wheelchair, unable to self transfer Patient ID verified using 2 identifiers: Yes Procedure: ITB pump reading without adjustment Current Drug: Lioresal Drug Concentration: 2000 mcg/ml Current Rate: 734.1 mcg/day MODE: simple continuous Rn Telephonic Residual: 26.1 ml Actual Residual: NA Pump Refilled: No Program Change: No Drug: Lioresal Drug Concentration: 2000 mcg/ml NEW RATE: 734.1 mcg./day MODE: simple continuous Bolus Given: No Estimated HUBERT: 12 months [place] alarm date: 01/21/2018 ASSESSMENT: (G80.9) Infantile cerebral palsy (HCC) (primary encounter diagnosis) (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 No changes in ITB rate were made today. He will be seeing neurosurgery for evaluation regarding ITB pump replacement due to end of battery life for his pump. He will follow up 2 weeks after his surgery for ITB pump and suture removal by neurosurgery. PLAN: -No change in ITB rate today. -Evaluation by neurosurgery for ITB pump replacement surgery due to end of battery life. -Please mail note to Timmy Perkins MD. -Please fax note and printout to [facility]; ATTN: Leeanne Brown RN. F/U: ITB f/u 2 weeks after surgery; Continue home refills performed by [facility]. Next ITB refill is to be performed in late 12/2017. Estefania Gonzalez MD BASIC METABOLIC Collected: 11/18/2017 Status: F Source: [place] ([place]) 11:30 AM [facility] [place] TYPE CODE TESTS RESULT OUT OF RANGE REFERENCE UNITS LAB L501.0100 74-106 mg/dL Normal GLU 80 Result Comment: Please note revised GLUCOSE reference range effective 2017. LAB L501.1000 7-18 mg/dL High BUN 22 LAB L501.1100 0.70-1.30 mg/dL Low CREAT,SERUM 0.37 Result Comment: The validity of the calculated GFR AND GFRAA in patients over 70 years has not been determined. Clinical correlation is essential. LAB L501.1110 >60 mL/min Normal EST GFR 283 Result Comment: Non- GFR Calc LAB L501.1115 >60 mL/min Normal EST GFR - AA 342 Result Comment: GFR Calc LAB L501.1300 10-20 RATIO High BUN/CRE 59.3 LAB L501.2200 8.5-10.1 mg/dL CA Normal 9.1 LAB L501.5300 136-145 mmol/L NA Normal 139 LAB L501.5600 3.5-5.1 mmol/L K Normal 4.6 LAB L501.5900 98-107 mmol/L CL Normal 103 LAB L501.6100 21.0-32.0 mmol/L Normal CO2 32.0 LAB L501.6200 5-15 Low GAP 4 Performed By: #### L500.2500 #### [facility] [address] [place], [place] [address]all [facility] [place], [address] CBC W/DIFF, AUTOMATED Collected: 10/21/2017 Status: F Source: [place] 10:15 AM [facility] [place] Order Comment: CBCD ORDERED BY DR RAMIREZ/ BMP ORDERED BY DR WAITE TYPE CODE TESTS RESULT OUT OF RANGE REFERENCE UNITS LAB L100.1000 4.4-11.0 K/mm3 Low WBC 4.0 LAB L100.1200 4.6-6.2 M/mm3 Low RBC 4.01 LAB L100.1300 13.0-16.5 g/dl Low HGB 12.0 LAB L100.1400 40-54 % Low HCT 36.8 LAB L100.1500 80-94 fL Normal MCV 91.8 LAB L100.1600 27.0-32.0 pg Normal MCH 29.9 LAB L100.1700 32-36 g/gl Normal MCHC 32.6 LAB L100.1810 11.6-14.6 % Normal RDW CV 14.5 LAB L100.1820 35.1-43.9 fl High RDW SD 47.7 LAB L100.1900 150-450 K/mm3 Low PLT 104 LAB L100.2000 6.2-12.0 fl Normal MPV 11.3 LAB L100.2100 47-70 % Low NEUT% 43.3 LAB L100.2200 19-41 % Normal LY% 38.9 LAB L100.2300 0-10 % High MONO% 11.4 LAB L100.2400 0-5 % High EO% 6.2 LAB L100.2500 0-1 % Normal BASO% 0.2 LAB L100.2550 0.0-0.9 % Normal IM GRAN % 0.000 Result Comment: IG% - Immature Granulocytes (promyelocytes, myelocytes and metamyelocytes) > 1% indicates that a LEFT SHIFT is Present. LAB L100.2620 2.0-7.7 X10 3/uL Low Absolute Neut 1.8 LAB L100.2720 0.83-4.51 X10 3/ul Normal Absolute Lymph 1.57 Performed By: #### L100.0100 #### [facility] [address]. [place], [place], [address] BASIC METABOLIC Collected: 10/21/2017 Status: F Source: [place] ([facility]) 10:15 AM [facility] [place] Order Comment: CBCD ORDERED BY DR RAMIREZ/BMP ORDERED BY DR WAITE TYPE CODE TESTS RESULT OUT OF RANGE REFERENCE UNITS LAB L501.0100 74-106 mg/dL Normal GLU 91 Result Comment: Please note revised GLUCOSE reference range effective 2017. LAB L501.1000 7-18 mg/dL High BUN 25 LAB L501.1100 0.70-1.30 mg/dL Low CREAT,SERUM 0.41 Result Comment: The validity of the calculated GFR AND GFRAA in patients over 70 years has not been determined. Clinical correlation is essential. LAB L501.1110 >60 mL/min Normal EST GFR 250 Result Comment: Non- GFR Calc LAB L501.1115 >60 mL/min Normal EST GFR - AA 303 Result Comment: GFR Calc LAB L501.1300 10-20 RATIO High BUN/CRE 60.7 LAB L501.2200 8.5-10.1 mg/dL CA Normal 8.8 LAB L501.5300 136-145 mmol/L NA Normal 140 LAB L501.5600 3.5-5.1 mmol/L K Normal 4.5 LAB L501.5900 98-107 mmol/L CL Normal 101 LAB L501.6100 21.0-32.0 mmol/L Normal CO2 30.0 LAB L501.6200 5-15 Normal GAP 9 Performed By: #### L500.2500 #### [facility] [address] [place], [address] CARDIOLOGY VISIT Observed: 10/06/2017 Status: F Source: [place] RE[place] 11:45 AM [facility] [place] [facility] [address] [place] [address] OFFICE VISIT Date of Service: 10/05/17 MR#: [id number] Acct: [id number] Name: KRISS MICHAEL Rep #: [id number] : 1980 Provider: SRINIVAS Lara Age/Sex: 37/M [place] [facility] [place] Status: Signed HPI HPI Details: KRISS MICHAEL, is a 37 M who presents to the office today for a follow-up visit. He is a gentleman with a history of cerebral palsy, previous G-tube, as well as history of preserved left ventricular systolic function. He did have an echocardiogram which demonstrated an ejection fraction of 65% and a chest x-ray as well as natruretic peptide level which was normal. He was admitted to [facility] emergency department in August 2017 for increased respiratory rate and heart rate. He was admitted and treated for aspiration pneumonia. He was discharged home and asked to follow-up with cardiology, pulmonology, and primary care physician. Since patient is non-verbal symptoms were obtained by mother. She denies chest, arm, jaw, or neck discomfort. He is wheelchair bound. She denies symptoms of CHF, palpitations, lightheadedness, dizziness, near syncopal or syncopal episodes. She denies edema or claudication issues. She denies orthopnea, PND, fever, chills, blood in urine, blood in stool, myalgia, or unexplainable fatigue. He lower extremities are socorro wrapped, which has helped with lower edema. Intake Vital Signs10/05/17 Height 5 ft 10/05/17 Weight: 169 lb 10/05/17 Body Mass Index (BMI) 33.0 10/05/17 Blood Pressure 118/68 Intake Visit Reasons: Sepsis Pneumonia Respiratory Coordinator Required: No Accompanied by: Mother Is patient in pain?: No Allergies cisapride monohydrate [From Propulsid] Allergy (Verified 10/05/17 13:50) Rash codeine Adverse Reaction (Verified 10/05/17 13:50) hallucinations metronidazole [From Flagyl] Adverse Reaction (Verified 10/05/17 13:50) Rash morphine Adverse Reaction (Verified 10/05/17 13:50) Hallucinations dust Allergy (Uncoded 05/30/17 12:34) Other Medications Simethicone 40MG/0.6ML [Mylicon] 40 mg GT TID 11/09/13 [History Confirmed 09/16/17] Baclofen 734.1 mcg INTRATH CONT 01/12/14 [History Confirmed 09/16/17] Lactobacillus Combination No.4 [Probiotic] 1 cap GT DAILY 01/12/14 [History Confirmed 09/16/17] Pantoprazole Sodium [Protonix] 20 ml GT BID 08/09/14 [History Confirmed 09/16/17] Senna/Docusate Sodium 20 ml GT PRN PRN 08/03/15 [History Confirmed 09/16/17] Ondansetron HCl [Zofran Solution] 5 ml GT TID PRN PRN 08/30/15 [History Confirmed 09/16/17] Polyethylene Glycol 3350 [Miralax] 17 gm GT DAILY 08/30/15 [History Confirmed 09/16/17] Magnesium Hydroxide [Milk Of Magnesia] 35 - 50 ml GT DAILY PRN PRN 12/20/15 [History Confirmed 09/16/17] Metoclopramide [Reglan Solution] 5 mg GT TID 12/20/15 [History Confirmed 09/16/17] Lactose-Reduced Food/Fiber [Jevity 1 Nery Liquid] 237 ml GT 4X/DAY 03/11/16 [History Confirmed 09/16/17] Lactulose [Chronulac] 20 gm GT DAILY 06/01/16 [History Confirmed 09/16/17] Phenobarbital 60 mg GT BID 02/19/17 [History Confirmed 09/16/17] furosemide 40 mg/5 mL (8 mg/mL) oral solution 20 mg PO QDAY #500 ml 09/09/17 [Rx Confirmed 09/16/17] Cetirizine HCl [Allergy Relief] 10 ml GT DAILY 09/16/17 [History Confirmed 09/16/17] Amox/Clav 400mg/5ml Susp [Augmentin Suspension 400mg/5ml] 800 mg GT BIDCM #110 ml 09/20/17 [Rx] Furosemide Liquid [Lasix Liquid] 20 mg GT DAILY #60 ml 09/20/17 [Rx] Potassium Chloride [K-Dur] 10 meq GT DAILY #14 tab 09/20/17 [Rx] Ejection fraction %: 65 to 70 PFSH Medical History Nonrheumatic mitral valve prolapse (Chronic) Cerebral palsy (Chronic) Surgical History H/O eye surgery (Resolved) Heel cord lengthening (Chronic) History of colostomy (Chronic) History of gastrostomy tube placement (Chronic) History of open reduction and internal fixation (ORIF) procedure (Chronic) History of soft tissue release (Chronic) Status post insertion of intrathecal baclofen pump (Chronic) Family History Mother Hypertension Hepatitis C Father Hypertension Atrial fibrillation CAD (coronary artery disease) Social History Smoking Status: Never smoker alcohol intake: never caffeine: No ROS Const Const: Negative for weakness, body ache, fever(s), chills or fatigue ENT ENT: Negative for dizziness Cardio Chest Pain: No Palpitations: No Edema: Bilateral (SOCORRO wrapped) Muscle aches with walking: None Resp Respiratory: Negative for SOB with activity, SOB at rest, SOB orthopnea\SOB lying down or paroxysmal nocturnal dyspnea GI GI: Negative nausea, black,tarry stools, bright, red blood in stools or vomiting blood/hematemesis : Negative for hematuria or frequent nighttime urination/ nocturia Musc Musc: Negative for muscle aches/ myalgia Skin Skin: Negative non-healing lesions or rash Neuro Neuro: Negative for lightheadedness, near syncope, syncope, orthostatic symptoms, weakness or dizziness Endo Endo: Negative for fatigue Allergy Allergy/Immunology: Negative for rash Cardiology Exam Const Appearance: cooperative, healthy appearing, well developed, well groomed and no acute distress Nutritional Appearance: well nourished and average body habitus Orientation: alert, awake and oriented x3 Head Head: normal to inspection, normocephalic and atraumatic Ears: hearing grossly normal bilaterally and external ears normal Nose: external nose normal, nasal mucous membranes and turbinates normal, nares normal, septum normal, no nasal discharge Face and Sinus: face symmetric Mouth: oral mucosae normal, tongue normal, oropharynx normal and moist mucous membranes Teeth and gingiva: dentition normal Throat: posterior oropharynx normal, tonsils normal and uvula midline Eyes General: appearance normal, both eyes and all related structures Eyelids: eyelids normal Conjunctivae: conjunctivae normal Pupils: PERRL, normal by confrontation and accommodation normal EOM: EOM intact bilaterally Neck Neck: normal visual inspection, trachea midline and no JVD JVD: +5 Carotids: normal carotid upstroke and bounding pulses Chest Chest inspection: normal inspection of the chest, symmetric chest movement and normal respiratory effort Auscultation: Bilateral: Clear to Auscultation Cardio Palpation: normal PMI Rate: regular rate Rhythm: regular rhythm Heart sounds: S1 normal, S2 normal and normal, physiologic split S2; negative rub, gallop or murmur GI GI: normal to inspection, soft, no hepatosplenomegaly and bowel sounds present Neuro General: alert, awake, oriented x3, no focal sensory deficit, gait normal and moves all extremities Skin Skin: no rashes or lesions noted Extremities Pulses: Normal: Right Femoral Pulse, Left Femoral Pulse, Right Dorsalis Pedis Pulse, Left Dorsalis Pedis Pulse, Right Posterior Tibial Pulse, Left Posterior Tibial Pulse, Right Radial Pulse, Left Radial Pulse Lower Extremity Edema: +1: Bilateral Musculoskel Musculoskeletal: No joint tenderness Psych Psychological: normal affect Supplemental Info Echocardiogram from August 2015 showed estimated ejection fraction of 65%, bubble contrast study negative for right to left interatrial shunt, equivocal mitral valve prolapse, unable to calculate RVSP, inferior vena cava is dilated, and no comparison study available. Assessment AND Plan 1. Edema, unspecified type R60.9 Plan - EMILEE EscobarC His echocardiogram in August 2015 showed ejection fraction of 65%. His BTNP drawn in the past was negative. His mom states that his lower extremity edema did worsen slightly after hospitalization that was felt to be related to his multiple IV antibiotics. His lower extremity edema is improved since applying Socorro wraps. She will continue with low-dose Lasix. She was instructed to continue with potassium 20 mEq due to most recent potassium level being low end of normal range of 3.5 mmol/L. She will have a BMP drawn at the end of this month. Based on results of this test further recommendation will be made regarding decreasing Lasix to every other day. His mom's goal would be to discontinue Lasix if possible. At this time his edema appears to be more dependent related and hopefully it can be controlled with as needed Lasix and compression stockings/Socorro wraps. We will wait for his BMP and then proceed with Lasix every other day and continue to down titrate based on edema. Plan Detail Additional Comments - Timmy Lara [employer] Discussed the above patient with Dr. Waite, he agrees with the plan of care. Thank you for allowing us to participate in the patients plan of care, if you have any questions please do not hesitate to call. This note was generated using a voice recognition system and there may be incorrect words, spelling or punctuation that were not noted when reviewing the office note prior to saving. Coding Level of Care Code Off vis,est,level 3 Diagnoses Edema, unspecified type R60.9 Edema type: unspecified Coding Level of Care Code Off vis,est,level 3 Diagnoses Edema, unspecified type R60.9 Edema type: unspecified 10/06/17 1110 <Electronically signed by Timmy Lara [employer]> Date Timmy Lara [employer] 10/06/17 1145<Electronically signed by Maury Waite MD> Cosigner Signature: Date (if applicable) Maury Waite MD CC: Timmy Perkins MD Observed: 09/29/2017 Status: F Source: [place] CDIFF (MOLECULAR) 5:18 PM [facility] [place] Cdiff-Molecular Normal Reference Range = Negative C. Diff DNA Positive-Toxigenic C. Difficile DNA Detected NAAT METHOD Testing was performed using nucleic acid amplification Performed By: #### M100.6796, M100.637 #### [facility] [address] [place], [address] Observed: 09/29/2017 Status: F Source: [place] ENTER[place] PATHOGEN 5:18 PM [facility] [place] PANEL STOOL Normal Reference Range = Not Detected Not detected for Campylobacter group, Salmonella species, Shigella species, Vibrio Group, Yersinia enterocolitica, EHEC (Shiga Toxin 1, Shiga Toxin 2), Norovirus Gl/Gll, and Rotavirus A. Other common stool pathogens are not detected on this panel include: Aeromonas/Plesiomonas or parasites. Order testing for these organisms separately if suspected. This is an amplified DNA test which makes it both specific and sensitive. CAMPYLOBACTER Not Detected Salmonella Not Detected Shigella sp. Not Detected Shiga Toxin Not Detected Yersinia Not Detected VIBRIO Not Detected Norovirus Not Detected Rotavirus Not Detected Performed By: #### M100.6796, M100.637 #### [facility] [address] [place], [address] BASIC METABOLIC Collected: 09/24/2017 Status: F Source: VAN PROFILE (BMP) 11:00 AM [facility] [place] TYPE CODE TESTS RESULT OUT OF RANGE REFERENCE UNITS LAB L501.0100 74-106 mg/dL High GLU 116 Result Comment: Fasting Glucose result from 100 to 125 mg/dL suggests IMPAIRED HOMEOSTASIS per A.D.A. criteria. Please note revised GLUCOSE reference range effective 2017. LAB L501.1000 7-18 mg/dL Normal BUN 17 LAB L501.1100 0.70-1.30 mg/dL Normal CREAT,SERUM 0.70 Result Comment: The validity of the calculated GFR AND GFRAA in patients over 70 years has not been determined. Clinical correlation is essential. LAB L501.1110 >60 mL/min Normal EST GFR 137 Result Comment: Non- GFR Calc LAB L501.1115 >60 mL/min Normal EST GFR - AA 166 Result Comment: GFR Calc LAB L501.1300 10-20 RATIO High BUN/CRE 24.4 LAB L501.2200 8.5-10.1 mg/dL CA Normal 8.5 LAB L501.5300 136-145 mmol/L NA Normal 143 LAB L501.5600 3.5-5.1 mmol/L K Normal 3.5 LAB L501.5900 98-107 mmol/L CL Normal 105 LAB L501.6100 21.0-32.0 mmol/L High CO2 35.0 LAB L501.6200 5-15 Low GAP 3 Performed By: #### L500.2500 #### [facility] [address] [place], [address] DISCHARGE SUMMARY Observed: 09/20/2017 Status: F Source: [place] 3:54 PM [facility] [place] [facility] Medical Records Department [address] [place] [address] Discharge Summary 09/20/17 1400 MR#: [id number] Acct: [id number] Name: ROJELIOKimKRISS Rep #: [id number] : 1980 37 From: Paul OAKES PCP: Timmy Perkins MD Status: DIS IN Y [id number] <Paul Jackson - Last Filed: 09/20/17 14:00> Discharge Date and Diagnosis Date of Admission: 09/16/17 Date of Discharge: 09/20/17 - Primary Discharge Diagnosis Acute severe sepsis 2/2 aspiration pna Severe debility 2/2 cerebral palsy Chronic hypoxic respiratory failure Hx Seizures Pancytopenia Hypokalemia Hypernatremia Dysphagia s/p peg tube s/p colostomy hx severe constipation - Secondary Discharge Diagnosis Chronic Problems (Last Reviewed 09/16/17 @ 17:51 by Torey James DO) Nonrheumatic mitral valve prolapse (Chronic) C. 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 recommend follow-up to resolution. RAD/Chest 1 View (Portable) IMPRESSION: Bilateral airspace disease unchanged RAD/Abdomen Single View IMPRESSION: Nonspecific gaseous small bowel loops and colon which could be due to mild ileus. RAD/Chest 1 View (Portable) IMPRESSION: Hypoventilatory exam. Worsening bilateral infiltrates or edema. Consultations: Pulmonology-Drs. Moreira and Bello Operations: None Procedures: None Summary of Care Provided: Physical exam on day of discharge: General: Resting comfortably NAD Psych: A/Ox3 normal affect HEENT: PEARRLA AT NC Neck: Supple NT CV: RRR no m/t/r/g/h Resp: CTA Abd: [id number] Soft NT no guarding or rigidity Ext: DP2+= no edema Skin: W/D normal turgor Lymph/Heme: No active bleeding or adenopathy Neuro: CN2-12 intact Hospital course: The patient is a 37 year old M who is completely dependent on his mothers horse race timer care 2/2 cerebral palsy, noncommunicative, also with hx of dysphagia with multiple episodes of aspiration pna, pancytopenia, peg tube feedings, colostomy, LE edema, chronic constipation, on baclofen pump, who presented to the ER with tachycardia, tachypnea, and increased spasticity. He had a cxr with BL pna and evidence of sepsis with tachypnea, tachycardia, and elevated lactic acid. He was admitted to the PCU for acute severe sepsis 2/2 aspiration pna and started on unasyn, transitioned to zosyn. Pulmonary medicine was consulted. He did require somewhat increased O2 levels - 2 lpm, he normally only uses O2 at night. We slowed down his tube feedings and had the tailings dam laborer manage his feedings. He did well with zosyn. Blood cultures were negative, urine culture was negative, Legionella antigen was negative. He developed slowing of his bowel with decreased output and some nausea, KUB demonstrated early ileus. He was restarted on his home constipation medications - miralax daily. He did well with this. His mentation improved as did his breathing. He did have some fluctuations in his electrolytes felt to be 2/2 his fluids and feeding adjustements. He was transitioned to GT augmentin to complete a total of 10 days of therapy. He will go back on his low dose lasix and potassium. He was discharged home in stable condition with home health care. He will need to follow-up with his bingo manager, assistant grocery store manager, and his PCP in 1-2 weeks. This patient was seen by Paul Jackson PA-C under the supervision of Doctor Bettie. [] Discharge Diet: - - Resume PEG feedings, advance slowly, with free water flushes as directed Discharge Activity: Return to Normal Activity Home Medications: Medications to take at Discharge Simethicone 40MG/0.6ML [Mylicon] 40 mg GT TID 11/09/13 Baclofen 734.1 mcg INTRATH CONT 01/12/14 Lactobacillus Combination No.4 [Probiotic] 1 cap GT DAILY 01/12/14 Pantoprazole Sodium [Protonix] 20 ml GT BID 08/09/14 Senna/Docusate Sodium 20 ml GT PRN PRN 08/03/15 Ondansetron HCl [Zofran Solution] 5 ml GT TID PRN PRN 08/30/15 Polyethylene Glycol 3350 [Miralax] 17 gm GT DAILY 08/30/15 Magnesium Hydroxide [Milk Of Magnesia] 35 - 50 ml GT DAILY PRN PRN 12/20/15 Metoclopramide [Reglan Solution] 5 mg GT TID 12/20/15 Lactose-Reduced Food/Fiber [Jevity 1 Nery Liquid] 237 ml GT 4X/DAY 03/11/16 Lactulose [Chronulac] 20 gm GT DAILY 06/01/16 Phenobarbital 60 mg GT BID 02/19/17 furosemide 40 mg/5 mL (8 mg/mL) oral solution 20 mg PO QDAY #500 ml 09/09/17 Cetirizine HCl [Allergy Relief] 10 ml GT DAILY 09/16/17 Amox/Clav 400mg/5ml Susp [Augmentin Suspension 400mg/5ml] 800 mg GT BIDCM #110 ml 09/20/17 Furosemide Liquid [Lasix Liquid] 20 mg GT DAILY #60 ml 09/20/17 Potassium Chloride [K-Dur] 10 meq GT DAILY #14 tab 09/20/17 Following Prescrptions Were Given to Patient: Amox/Clav 400mg/5ml Susp [Augmentin Suspension 400mg/5ml] 800 mg GT BIDCM #110 ml Furosemide Liquid [Lasix Liquid] 20 mg GT DAILY #60 ml Potassium Chloride [K-Dur] 10 meq GT DAILY #14 tab Primary Care Physician: Timmy Perkins MD [Primary Care Provider] - Please follow up with your Primary Care Physician in: 1-2 weeks Please Follow Up With: Timmy Lara NP-C When: As directed Please Follow Up With: Timmy Perkins MD When: 1-2 weeks Please Follow Up With: Yovanny Moreira DO When: 2 weeks Please Follow Up With: Maury Waite MD When: As directed Disposition: Home with Home Health Minutes spent on discharge:: 35 Patient Condition:: Stable Medical Necessity - Tobacco Use Smoking Status: Never smoker Tobacco Use: Non-smoker Meaningful Use Info Meaningful Use Diagnoses (Choose all that apply): None applicable <Cindy Alexandre - Last Filed: 09/20/17 14:49> Discharge Date and Diagnosis - Secondary Discharge Diagnosis Chronic Problems (Last Reviewed 09/16/17 @ 17:51 by Torey James DO) Nonrheumatic mitral valve prolapse (Chronic) C. 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 The patient is a 37 year old M with a history of cerebral palsy, dysphagia and multiple episodes of aspiration pneumonia, status post PEG tube in place and with colostomy and on chronic baclofen pump. He was admitted by the ED with a complaint of tachycardia, tachypnea and increased spasticity. Chest x-ray indicated bilateral pneumonia and evidence of sepsis with tachypnea, tachycardia and elevated lactic acid. He was admitted and managed for acute sepsis secondary to aspiration pneumonia was initially started on IV Unasyn and subsequently transitioned to IV Zosyn. Pulmonary medicine was consulted. Blood cultures came back negative and urine cultures were also negative. Legionella was also negative. Patient remained stable and was discharged home on 09/20 2017 on p.o. Augmentin for 10 days. He is to follow-up with his bingo manager and assistant grocery store manager as well as primary care doctor. Mother to give free water flushes via the PEG tube frequently as he had mild hypernatremia at time of discharge-149; he is also to resume his low dose lasix which will help with the mild hypernatremia. Patient seen and examined prior to discharge. o/e: Vital Signs Height 5 ft Weight: 179 lb 14.355 oz General: Alert, Cooperative, - - aphasic HEENT: Atraumatic, PERRLA, EOMI, Normocephalic, - - Oral: Dry Mucosa - from mouth breathing or opening mouth Neck: Supple, No JVD, Negative Carotid Bruits Lungs: Clear to auscultation - anteriorly, Normal air movement, Diminished - at the lung bases Cardiovascular: Regular rate, Regular Rhythm, Normal S1, Normal S2, No murmurs Abdomen: Bowel Sounds Present, Soft, Non Tender, Non-Distended, No Hepato-splenomegaly, Obese, - - Colostomy bag, baclofen pump to Left upper quadrant Extremities: Edema - Bilateral, pitting, nontender, up to the thigh. Skin: No rashes Musculoskeletal: No Tenderness to Palpation of Joints or Extremities, - - Contractures of the joints especially wrists and feet Neurological: - - Alert, aphasic, drooling, history of cerebral palsy Psych/Mental Status: flat affect I agree with Paul Jackson PA-C's note and assessment and plan. Plan as documented above. [] 09/20/17 1430 <Electronically signed by Paul OAKES> Date Paul OAKES 09/20/17 1554<Electronically signed by Cindy Alexandre MD> Cosigner Signature (if applicable): Date Cindy Alexandre MD CC: CHAMP Jackson; Timmy Perkins MD; Cindy Alexandre MD Signed DISCHARGE INSTRUCTION Observed: 09/20/2017 Status: F Source: [place] 1:19 PM [facility] [place] [facility] Medical Records Department [address] [place] [address] Instructions for Home/Discharge Instructions 09/20/17 1143 MR#: [id number] Acct: [id number] Name: KRISS MICHAEL Rep #: [id number] : 1980 37 From: Paul OAKES PCP: Timmy Perkins MD Status: ADM IN ADDENDUM by Cindy Alexandre MD on 09/20/17 at 1318 Please give 100 cc of free water flushes via his PEG tube every 6 hours for the next 3 days. Date Cindy Alexandre MD cc: Jacek Monsalve MD; Timmy Perkins MD * Signed ADDENDUM by CHAMP Jackson on 09/20/17 at 1242 Please also follow up with Dr. Moreira or Bello in 2-3 weeks Date Paul Jackson cc: Jacek Monsalve MD; Timmy Perkins MD * Signed - Discharge Diagnoses Current Active Problems: Current Active and Chronic Problems (Last Reviewed 09/16/17 @ 17:51 by Torey James DO) Severe sepsis (Acute) Aspiration pneumonia (Acute) You will use the following diet at home:: Other - tube feedings as directed Discharge Activity: Return to Normal Activity Additional Instructions: SOCORRO wraps, or other compression to BL legs daily, elevate legs as tolerated. Per tailings dam laborer: Rec continue current tf - would flush with 120 cc every 4 hours to provide 1440 nery / 61 gm pr / 1431 cc free water/day. rate is currently 40 cc/hr Pending Tests on Discharge: BMP in 5 days Allergies/Adverse Reactions: Allergies cisapride monohydrate [From Propulsid] Allergy (Verified 05/30/17 12:34) Rash codeine Adverse Reaction (Verified 05/30/17 12:34) hallucinations metronidazole [From Flagyl] Adverse Reaction (Verified 05/30/17 12:34) Rash morphine Adverse Reaction (Verified 05/30/17 12:34) Hallucinations dust Allergy (Uncoded 05/30/17 12:34) Other Medications to take at Discharge Simethicone 40MG/0.6ML [Mylicon] 40 mg GT TID 11/09/13 Baclofen 734.1 mcg INTRATH CONT 01/12/14 Lactobacillus Combination No.4 [Probiotic] 1 cap GT DAILY 01/12/14 Pantoprazole Sodium [Protonix] 20 ml GT BID 08/09/14 Senna/Docusate Sodium 20 ml GT PRN PRN 08/03/15 Ondansetron HCl [Zofran Solution] 5 ml GT TID PRN PRN 08/30/15 Polyethylene Glycol 3350 [Miralax] 17 gm GT DAILY 08/30/15 Magnesium Hydroxide [Milk Of Magnesia] 35 - 50 ml GT DAILY PRN PRN 12/20/15 Metoclopramide [Reglan Solution] 5 mg GT TID 12/20/15 Lactose-Reduced Food/Fiber [Jevity 1 Nery Liquid] 237 ml GT 4X/DAY 03/11/16 Lactulose [Chronulac] 20 gm GT DAILY 06/01/16 Phenobarbital 60 mg GT BID 02/19/17 furosemide 40 mg/5 mL (8 mg/mL) oral solution 20 mg PO QDAY #500 ml 09/09/17 Cetirizine HCl [Allergy Relief] 10 ml GT DAILY 09/16/17 Amox/Clav 400mg/5ml Susp [Augmentin Suspension 400mg/5ml] 800 mg GT BIDCM #110 ml 09/20/17 Furosemide Liquid [Lasix Liquid] 20 mg GT DAILY #60 ml 09/20/17 Potassium Chloride [K-Dur] 10 meq GT DAILY #14 tab 09/20/17 The following prescriptions were given: Amox/Clav 400mg/5ml Susp [Augmentin Suspension 400mg/5ml] 800 mg GT BIDCM #110 ml Furosemide Liquid [Lasix Liquid] 20 mg GT DAILY #60 ml Potassium Chloride [K-Dur] 10 meq GT DAILY #14 tab Primary Care Physician: Timmy Perkins MD [Primary Care Provider] - Please follow up with your Primary Care Physician in: 1-2 weeks Test Results: Test results from this visit will be discussed in further detail at your follow-up appointment, if applicable. Please Follow Up With: Maury Waite MD When: As directed Proposed Discharge Date: 09/20/17 09/20/17 1148 <Electronically signed by Paul OAKES> Date Paul OAKES CC: Jacek Monsalve MD; Timmy Perkins MD BASIC METABOLIC Collected: 09/20/2017 Status: F Source: [place] PROFILE (BMP) 5:10 AM [facility] [place] Order Comment: SPECIMEN OBTAINED FROM LINE DRAW TYPE CODE TESTS RESULT OUT OF RANGE REFERENCE UNITS LAB L501.0100 74-106 mg/dL High GLU 114 Result Comment: Fasting Glucose result from 100 to 125 mg/dL suggests IMPAIRED HOMEOSTASIS per A.D.A. criteria. Please note revised GLUCOSE reference range effective 2017. LAB L501.1000 7-18 mg/dL Normal BUN 11 LAB L501.1100 0.70-1.30 mg/dL Normal CREAT,SERUM 1.08 Result Comment: The validity of the calculated GFR AND GFRAA in patients over 70 years has not been determined. Clinical correlation is essential. LAB L501.1110 >60 mL/min Normal EST GFR 82 Result Comment: Non- GFR Calc LAB L501.1115 >60 mL/min Normal EST GFR - AA 100 Result Comment: GFR Calc LAB L501.1255 ml/min Normal Estimated CRCL 67.52 LAB L501.1300 10-20 RATIO Normal BUN/CRE 10.2 LAB L501.2200 8.5-10 mg/dL Low .1 CA 8.1 LAB L501.5300 136-14 mmol/L High 5 NA 149 LAB L501.5600 3.5-5. mmol/L Normal 1 K 3.7 LAB L501.5900 98-107 mmol/L High CL 113 LAB L501.6100 21.0-3 mmol/L Normal 2.0 CO2 28.0 LAB L501.6200 5-15 Normal GAP 8 Performed By: #### L500.2500 #### [facility] [address] [place], [address] CBC W/DIFF, AUTOMATED Collected: 09/20/2017 Status: F Source: [place] 5:10 AM [facility] [place] Order Comment: SPECIMEN OBTAINED FROM LINE DRAW TYPE CODE TESTS RESULT OUT OF RANGE REFERENCE UNITS LAB L100.1000 4.4-11.0 K/mm3 Normal WBC 4.6 LAB L100.1200 4.6-6.2 M/mm3 Low RBC 3.07 LAB L100.1300 13.0-16.5 g/dl Low HGB 9.1 LAB L100.1400 40-54 % Low HCT 29.0 LAB L100.1500 80-94 fL High MCV 94.5 LAB L100.1600 27.0-32.0 pg Normal MCH 29.6 LAB L100.1700 32-36 g/gl Low MCHC 31.4 LAB L100.1810 11.6-14.6 % High RDW CV 15.7 LAB L100.1820 35.1-43.9 fl High RDW SD 53.9 LAB L100.1900 150-450 K/mm3 Low PLT 88 LAB L100.2000 6.2-12.0 fl Normal MPV 10.4 LAB L100.2100 47-70 % Normal NEUT% 57.2 LAB L100.2200 19-41 % Normal LY% 24.2 LAB L100.2300 0-10 % High MONO% 14.3 LAB L100.2400 0-5 % Normal EO% 3.7 LAB L100.2500 0-1 % Normal BASO% 0.2 LAB L100.2550 0.0-0.9 % Normal IM GRAN % 0.400 Result Comment: IG% - Immature Granulocytes (promyelocytes, myelocytes and metamyelocytes) > 1% indicates that a LEFT SHIFT is Present. LAB L100.2620 2.0-7.7 X10 3/uL Normal Absolute Neut 2.6 LAB L100.2720 0.83-4.51 X10 3/ul Normal Absolute Lymph 1.12 Performed By: #### L100.0100 #### [facility] [address] [place], [place], [address] BASIC METABOLIC Collected: 09/19/2017 Status: F Source: VAN PROFILE (BMP) 6:30 PM [facility] [place] Order Comment: LINE DRAW TYPE CODE TESTS RESULT OUT OF RANGE REFERENCE UNITS LAB L501.0100 74-106 mg/dL Normal GLU 100 Result Comment: Fasting Glucose result from 100 to 125 mg/dL suggests IMPAIRED HOMEOSTASIS per A.D.A. criteria. Please note revised GLUCOSE reference range effective 2017. LAB L501.1000 7-18 mg/dL Normal BUN 12 LAB L501.1100 0.70-1.30 mg/dL Normal CREAT,SERUM 1.07 Result Comment: The validity of the calculated GFR AND GFRAA in patients over 70 years has not been determined. Clinical correlation is essential. LAB L501.1110 >60 mL/min Normal EST GFR 83 Result Comment: Non- GFR Calc LAB L501.1115 >60 mL/min Normal EST GFR - AA 101 Result Comment: GFR Calc LAB L501.1255 ml/min Normal Estimated CRCL 68.15 LAB L501.1300 10-20 RATIO Normal BUN/CRE 11.2 LAB L501.2200 8.5-10 mg/dL Low .1 CA 8.3 LAB L501.5300 136-14 mmol/L High 5 NA 147 LAB L501.5600 3.5-5. mmol/L Normal 1 K 4.0 LAB L501.5900 98-107 mmol/L High CL 115 LAB L501.6100 21.0-3 mmol/L Normal 2.0 CO2 28.0 LAB L501.6200 5-15 Low GAP 4 Performed By: #### L500.2500 #### [facility] [address] [place], [address] CHEST 1 VIEW Observed: 09/19/2017 Status: F Source: [place] (PORTABLE) 6:46 AM [facility] [place] [facility] Imaging Services [address] [place] [id number] Chest 1 View (Portable) MR#: [id number] Acct: [id number] Name: KRISS MICHAEL Rep #: [id number] : 1980 M 37 From: Siddharth Benavides MD PCP: Timmy Perkins MD Status: ADM IN Study: Chest 1 View (Portable) Date of Exam: 09/19/17 Exam# [id number] Ordering Dr: Jacek Monsalve MD STUDY: X-RAY CHEST REASON FOR EXAM: Male, 37 years old. Shortness of breath. Dyspnea. TECHNIQUE: Single AP portable view of the chest. COMPARISON: September 16, 2017 FINDINGS: Port on the right extends to the cavoatrial junction. Lungs are underexpanded. The mid and lower lung opacities are increased. There is no demonstrated pleural abnormality. Normal size heart. Normal mediastinum and rachelle. Normal visualized pulmonary arteries. Normal visualized aortic arch and descending thoracic aorta. Normal visualized thoracic spine. Normal visualized ribs, clavicles, and shoulders. There is no demonstrated abnormality of the visualized soft tissue structures of the upper abdomen. RAD/Chest 1 View (Portable) IMPRESSION: Hypoventilatory exam. Worsening bilateral infiltrates or edema. Electronically Signed: Siddharth Benavides MD at 11:19 EDT , Service support , CC: Jacek Monsalve MD; iTmmy Perkins MD Pattern Technician: Signed CBC W/DIFF, AUTOMATED Collected: 09/19/2017 Status: F Source: [place] 5:40 AM [facility] [place] Order Comment: SPECIMEN OBTAINED FROM LINE DRAW TYPE CODE TESTS RESULT OUT OF RANGE REFERENCE UNITS LAB L100.1000 4.4-11.0 K/mm3 Low WBC 4.2 LAB L100.1200 4.6-6.2 M/mm3 Low RBC 3.12 LAB L100.1300 13.0-16.5 g/dl Low HGB 9.5 LAB L100.1400 40-54 % Low HCT 30.1 LAB L100.1500 80-94 fL High MCV 96.5 LAB L100.1600 27.0-32.0 pg Normal MCH 30.4 LAB L100.1700 32-36 g/gl Low MCHC 31.6 LAB L100.1810 11.6-14.6 % High RDW CV 15.6 LAB L100.1820 35.1-43.9 fl High RDW SD 53.4 LAB L100.1900 150-450 K/mm3 Low PLT 73 LAB L100.2000 6.2-12.0 fl Normal MPV 10.4 LAB L100.2100 47-70 % Normal NEUT% 50.4 LAB L100.2200 19-41 % Normal LY% 24.9 LAB L100.2300 0-10 % High MONO% 20.4 LAB L100.2400 0-5 % Normal EO% 4.1 LAB L100.2500 0-1 % Normal BASO% 0.0 LAB L100.2550 0.0-0.9 % Normal IM GRAN % 0.200 Result Comment: IG% - Immature Granulocytes (promyelocytes, myelocytes and metamyelocytes) > 1% indicates that a LEFT SHIFT is Present. LAB L100.2620 2.0-7.7 X10 3/uL Normal Absolute Neut 2.1 LAB L100.2720 0.83-4.51 X10 3/ul Normal Absolute Lymph 1.04 Performed By: #### L100.0100 #### [facility] [address] [place], [place], [address] BASIC METABOLIC Collected: 09/19/2017 Status: F Source: [place] PROFILE (BMP) 5:40 AM [facility] [place] Order Comment: SPECIMEN OBTAINED FROM LINE DRAW TYPE CODE TESTS RESULT OUT OF RANGE REFERENCE UNITS LAB L501.0100 74-106 mg/dL Normal GLU 100 Result Comment: Fasting Glucose result from 100 to 125 mg/dL suggests IMPAIRED HOMEOSTASIS per A.D.A. criteria. Please note revised GLUCOSE reference range effective 2017. LAB L501.1000 7-18 mg/dL Normal BUN 13 LAB L501.1100 0.70-1.30 mg/dL Normal CREAT,SERUM 0.96 Result Comment: The validity of the calculated GFR AND GFRAA in patients over 70 years has not been determined. Clinical correlation is essential. LAB L501.1110 >60 mL/min Normal EST GFR 95 Result Comment: Non- GFR Calc LAB L501.1115 >60 mL/min Normal EST GFR - AA 115 Result Comment: GFR Calc LAB L501.1255 ml/min Normal Estimated CRCL 75.95 LAB L501.1300 10-20 RATIO Normal BUN/CRE 13.6 LAB L501.2200 8.5-10 mg/dL Low .1 CA 8.2 LAB L501.5300 136-14 mmol/L High 5 NA 150 LAB L501.5600 3.5-5. mmol/L Low 1 K 3.4 LAB L501.5900 98-107 mmol/L High CL 115 LAB L501.6100 21.0-3 mmol/L Normal 2.0 CO2 29.0 LAB L501.6200 5-15 Normal GAP 6 Performed By: #### L500.2500 #### [facility] [address] [place], [address] MAGNESIUM Collected: 09/19/2017 Status: F Source: [place] 5:40 AM [facility] [place] Order Comment: Comments: OK TO ADD ON TYPE CODE TESTS RESULT OUT OF RANGE REFERENCE UNITS LAB L501.5200 1.6-2.6 mg/dL Normal MG 2.2 Performed By: #### L501.5200 #### [facility] [address] [place], [address] ABDOMEN SINGLE VIEW Observed: 09/18/2017 Status: F Source: [place] 10:50 AM [facility] [place] [facility] Imaging Services [address] [place] [address] Abdomen Single View MR#: [id number] Acct: [id number] Name: KRISS MICHAEL Rep #: [id number] : 1980 M 37 From: Edis Dhaliwal MD PCP: Timmy Perkins MD Status: ADM IN Study: Abdomen Single View Date of Exam: 09/18/17 Exam# [id number] Ordering Dr: Fiona Samayoa MD STUDY: X-RAY - ABDOMEN/PELVIS REASON FOR EXAM: Male, 37 years old. Nausea and vomiting. TECHNIQUE: Single AP view of the abdomen / pelvis. COMPARISON: None. FINDINGS: The visualized portions of lung bases demonstrate mild left basilar infiltrate and atelectatic changes in the right lung base. There are nonspecific gaseous bowel loops and colon. There is a neural stimulator wire extending in the thoracic spine to the level of T10. Rectal line is seen. There is demineralization of the osseous structures. RAD/Abdomen Single View IMPRESSION: Nonspecific gaseous small bowel loops and colon which could be due to mild ileus. Electronically Signed: Edis Dhaliwal MD at 14:38 EDT Tel , Service support , CC: Fiona Samayoa MD; Timmy Perkins MD Pattern Technician: Signed VANCOMYCIN, TROUGH Collected: 09/18/2017 Status: F Source: [place] 10:09 AM [facility] [place] Order Comment: Time Medication is to be Given? 1100 TYPE CODE TESTS RESULT OUT OF REFERENCE UNITS RANGE LAB L501.8820 5.0-15.0 ug/mL High VANCO, TROUGH 33.6 Result Comment: VANCOMYCIN STANDARED DRUG THERAPY TROUGH LEVEL: 5.0 - 15.0 mg/L VANCOMYCIN HIGH INTENSITY THERAPY TROUGH LEVEL: 15.0 - 20.0 mg/L High Intensity therapy recommended for serious life threatening infections include: - Meningitis -Endocarditis -Pneumonia (Ventilator/Healtcare Associated) -Sepsis PLEASE CONTACT PHARMACY SERVICES (#[id number]) FOR INTERPRETATION OF RESULTS. Performed By: #### L501.8820 #### [facility] [address] [place], [address] MAGNESIUM Collected: 09/18/2017 Status: F Source: VAN 10:09 AM [facility] [place] [facility] Order Comment: Comments: as add on test TYPE CODE TESTS RESULT OUT OF RANGE REFERENCE UNITS LAB L501.5200 1.6-2.6 mg/dL Normal MG 2.1 Performed By: #### L501.5200 #### [facility] [address] [place], [address] CONSULTATION Observed: 09/18/2017 Status: F Source: VAN 5:34 AM [facility] [place] [facility] Medical Records Department [address] [place] [address] Consultation 09/17/17 0825 MR#: [id number] Acct: [id number] Name: KRISS MICHAEL #: [id number] : 1980 37 From: Jacek Monsalve MD PCP: Timmy Perkins MD Status: ADM IN Y [id number] Problem List (1) Severe sepsis Status: Acute (2) Aspiration pneumonia Status: Acute Qualifiers: Aspiration pneumonia type: unspecified Laterality: bilateral Lung location: lower lobe of lung Qualified Code(s): J69.0 - Pneumonitis due to inhalation of food and vomit (3) Nonrheumatic mitral valve prolapse Status: Chronic (4) Cerebral palsy Status: Chronic Qualifiers: Cerebral palsy type: spastic quadriplegic Qualified Code(s): G80.0 - Spastic quadriplegic cerebral palsy Comment: Quadriplegic Severe mental retardation Chronic constipation PEG tube (5) History of seizure disorder Status: Chronic (6) Redundant colon Status: Chronic (7) Colostomy in place Status: Chronic Reason for Consult Date of Consultation: 09/17/17 Reason for Consultation: Sepsis History of Present Illness: The patient is a 37 year old M, with past medical history listed below and well-known to me from previous admissions, who presented to [facility] on 09/16/2017 secondary to concern for aspiration pneumonia. Patient does have a history of tube feeds at baseline, left upper quadrant baclofen pump, and left lower quadrant colostomy. Patient is nonverbal and unable to provide any history. On presentation to the ER, patient was noted to be tachycardic and tachypneic. Patient does have poor dentition at baseline and was requiring 2 L nasal cannula to achieve appropriate saturations. Patient typically only require supplemental oxygen at night. No retractions were noted, but patient did have 2-3+ edema of the bilateral lower extremities. Laboratory workup showed a white blood cell count of 11.2, lactate of 2.6 and a chest x-ray showing bilateral infiltrates. Patient was placed on Unasyn for aspiration pneumonia and then admitted to the PCU. While in PCU, patient's respirations became more labored and he was transferred to the intensive care unit for possible intervention. Patient was initially on a nonrebreather, but after aggressive mouth care, patient was able to be weaned down to 2 L nasal cannula. Patient has remained tachycardic and febrile throughout his hospitalization. On arrival this morning, patient was resting comfortably. Discussed with patient's mother at the bedside. She did note papular lesions of the left forearm, but otherwise no new bedsores or other complications. Patient has been initiated on tube feeds with 1.5 kcal per cc. Patient typically uses 1 kcal per cc at home. Patient reportedly has been tolerating this. No emesis has been reported from the mother. No sick contacts are reported. Patient did have a Augustin catheter placed on presentation to the intensive care unit and 950 cc were removed. Per mother's recollection, there is never been an issue with urinary retention in the past. Past Medical History Past Medical History (Chronic Problems): Chronic Problems (Last Reviewed 09/16/17 @ 17:51 by Torey James DO) Nonrheumatic mitral valve prolapse (Chronic) C. 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) Medical History: Medical History (Last Reviewed 09/16/17 @ 17:51 by Torey James DO) Nonrheumatic mitral valve prolapse (Chronic) I34.1 Cerebral palsy (Chronic) G80.9 Quadriplegic Severe mental retardation Chronic constipation PEG tube Allergies cisapride monohydrate [From Propulsid] Allergy (Verified 05/30/17 12:34) Rash codeine Adverse Reaction (Verified 05/30/17 12:34) hallucinations metronidazole [From Flagyl] Adverse Reaction (Verified 05/30/17 12:34) Rash morphine Adverse Reaction (Verified 05/30/17 12:34) Hallucinations dust Allergy (Uncoded 05/30/17 12:34) Other Home Medications: Ambulatory Orders Medication Instructions Recorded Simethicone 40MG/0.6ML [Mylicon] 40 mg GT TID 11/09/13 Surgical History: Surgical History (Last Reviewed 09/16/17 @ 17:51 by Torey James DO) H/O eye surgery (Resolved) Z98.890 Surgical History: - - Insertion of a baclofen pump which has been replaced twice since then. PEG tube insertion. Left colostomy Psychiatric History: No pertinent psych hx Lives: With Family Smoking Status: Never smoker Tobacco Use: Non-smoker - *Family History Maternal Family History: Family History (Last Reviewed 09/16/17 @ 17:51 by Torey James DO) Mother Hypertension History Items: No pertinent history, - - None significant Paternal Family History: Family History (Last Reviewed 09/16/17 @ 17:51 by Torey James DO) Mother Hypertension History Items: No pertinent history Review of Systems Unable to obtain accurate/complete ROS d/t: Cerebral palsy, ROS per mother Comment: Otherwise negative 10 systems unless stated in HPI. Patient Problems: Active and Suspected Problems (Last Reviewed 09/16/17 @ 17:51 by Torey James DO) Severe sepsis (Acute) Aspiration pneumonia (Acute) Objective: Chest x-ray was personally reviewed. Poor inhalation bilaterally, but does appear to have bilateral alveolar infiltrates. - Physical Exam General: Alert, No apparent distress, - - Not following commands, but this is his baseline. CP appearance HEENT: Atraumatic, PERRLA, EOMI, Normocephalic, - - No scleral icterus or injection noted. Oral: Moist Mucosa, Ulcerations Present - Small ulceration and erythema noted on the distal portion of the tongue., - - Gingival hyperplasia noted. Poor dentition. Neck: Supple, No JVD, No Nodes, Trachea Midline Lungs: No wheeze, No rales, Diminished, Rhonchi, - - Symmetric expansion. Cardiovascular: Normal S1, Normal S2, No murmurs, No rub noted, No Gallop, Tachycardic Abdomen: Bowel Sounds Present, Soft, Non Tender, Non-Distended, Obese, - - Colostomy and Fracisco button are clean, dry and intact. Extremities: No clubbing, No cyanosis, Edema - Or rubor. 2+ lower extremity edema without erythema or warmth Skin: No breakdown, - - Papular lesions noted on left forearm that appear to be insect bites. Musculoskeletal: No Tenderness to Palpation of Joints or Extremities, - - Contractures noted. Lymphatic: No Cervical, Supraclavicular, or Inguinal Adenopathy Neurological: - - Spastic contractions noted of upper and lower extremities. Torticollis to the right. Psych/Mental Status: Anxious, Flat Affect, Restless Vital Signs Temp Pulse Resp BP Pulse Ox 37.6 C H 109 H 18 114/69 93 09/17/17 08:00 09/17/17 08:00 09/17/17 08:00 09/17/17 08:00 09/17/17 08:00 Oxygen Flow Rate (L/min) 2 Oxygen Delivery Method Nasal Cannula Weight: 81.4 kg Body Mass Index (BMI) 34.4 Intake and Output for Last 24 Hours Intake Total 1395 / 1395 668.8 / 668.8 Output Total 400 / 400 350 / 350 Balance 995 / 995 318.8 / 318.8 Microbiology Past 72 Hours 09/16/17 20:00 Legionella Antigen - Final Urine Catheter - Catheter Laboratory Tests Past 24 Hrs WBC 6.7 RBC 3.76 L Hgb 11.2 L Hct 34.1 L MCV 90.7 MCH 29.8 MCHC 32.8 RDW 15.1 H RDW Differential 49.2 H WBC RBC Hgb Hct MCV MCH MCHC WBC RBC Hgb Hct MCV MCH MCHC RDW RDW Differential Clinical Impression(s) from Imaging Studies Chest X-Ray 09/16/17 16:15 IMPRESSION: Bilateral airspace disease. recommend follow-up to resolution. Electronically Signed: Luis Carlos Smith MD at 16:41 EDT , Service support , Chest X-Ray 09/16/17 20:07 IMPRESSION: Bilateral airspace disease unchanged Electronically Signed: Luis Carlos Smith MD at 21:33 EDT , Service support , Assessment/Plan Active and Suspected Problems (Last Reviewed 09/16/17 @ 17:51 by Torey James DO) Severe sepsis (Acute) Aspiration pneumonia (Acute) RECOMMENDATIONS: 1. Continue empiric antibiotics 2. Aggressive mouth care, follow saturations closely 3. Okay to continue tube feeds 4. Discontinue IV fluids 5. Okay to transfer to PCU for my perspective IMPRESSIONS: 1. Severe sepsis secondary to probable aspiration pneumonia Patient with increased oral secretions per the mother and infiltrates noted bilaterally on chest x-ray. Patient does have a PEG, but no obvious emesis has been reported by the mother. Patient is on appropriate antibiotics at this time. Patient's oxygenation appears to have responded well to aggressive oral care. Wean oxygen as tolerated. Continue nocturnal oxygen 2. Chronic respiratory insufficiency secondary to recurrent aspiration pneumonia No obvious aspiration event at this time. Chest x-ray was personally reviewed and shows a slight haziness over the both lung pisano. Echocardiogram and CT scan of the chest in the past did show a dilated IVC did show enlarged pulmonary arteries. 3. History of C. difficile colitis status post colostomy/history of upper GI bleed Patient is currently being fed with increased awesome tube feeds. This may lead to some diarrhea. Likely okay to hold patient's baseline bowel regimen if this develops. Obtain C. difficile if necessary. 4. Sinus tachycardia Echocardiogram was relatively unremarkable in the past. Likely response to severe sepsis. Continue supportive care and monitor with telemetry. 5. Cerebral palsy/history of seizure disorder/multiple previous admissions Complicates care, management, recovery and prognosis. Code Visit Inpatient E AND M: [id number] Init Hosp L3 09/18/17 0534 <Electronically signed by Jacek Monsalve MD> Date Jacek Monsalve MD Cosigner Signature (if applicable): Date CC: Jacek Monsalve MD; Timmy Perkins MD Signed BASIC METABOLIC Collected: 09/17/2017 Status: F Source: VAN PROFILE (BMP) 4:40 PM [facility] [place] [facility] TYPE CODE TESTS RESULT OUT OF RANGE REFERENCE UNITS LAB L501.0100 74-106 mg/dL Normal GLU 96 Result Comment: Please note revised GLUCOSE reference range effective 2017. LAB L501.1000 7-18 mg/dL Normal BUN 13 LAB L501.1100 0.70-1.30 mg/dL Low CREAT,SERUM 0.48 Result Comment: The validity of the calculated GFR AND GFRAA in patients over 70 years has not been determined. Clinical correlation is essential. LAB L501.1110 >60 mL/min Normal EST GFR 213 Result Comment: Non- GFR Calc LAB L501.1115 >60 mL/min Normal EST GFR - AA 257 Result Comment: GFR Calc LAB L501.1255 ml/min Normal Estimated CRCL 151.91 LAB L501.1300 10-20 RATIO High BUN/CRE 27.4 LAB L501.2200 8.5-10 mg/dL .1 CA Normal 8.6 LAB L501.5300 136-14 mmol/L 5 NA Normal 142 LAB L501.5600 3.5-5. mmol/L 1 K Normal 3.6 LAB L501.5900 98-107 mmol/L High CL 111 LAB L501.6100 21.0-3 mmol/L 2.0 CO2 Normal 26.0 LAB L501.6200 5-15 GAP Normal 5 Performed By: #### L500.2500 #### [facility] [address] [place], [address] BASIC METABOLIC Collected: 09/17/2017 Status: F Source: [place] PROFILE (BMP) 4:15 AM [facility] [place] TYPE CODE TESTS RESULT OUT OF RANGE REFERENCE UNITS LAB L501.0100 74-106 mg/dL Normal GLU 77 Result Comment: Please note revised GLUCOSE reference range effective 2017. LAB L501.1000 7-18 mg/dL Normal BUN 15 LAB L501.1100 0.70-1.30 mg/dL Low CREAT,SERUM 0.50 Result Comment: The validity of the calculated GFR AND GFRAA in patients over 70 years has not been determined. Clinical correlation is essential. LAB L501.1110 >60 mL/min Normal EST GFR 201 Result Comment: Non- GFR Calc LAB L501.1115 >60 mL/min Normal EST GFR - AA 244 Result Comment: GFR Calc LAB L501.1255 ml/min Normal Estimated CRCL 145.83 LAB L501.1300 10-20 RATIO High BUN/CRE 30.1 LAB L501.2200 8.5-10 mg/dL Low .1 CA 8.4 LAB L501.5300 136-14 mmol/L High 5 NA 146 LAB L501.5600 3.5-5. mmol/L 1 K Normal 4.2 LAB L501.5900 98-107 mmol/L High CL 111 LAB L501.6100 21.0-3 mmol/L 2.0 CO2 Normal 29.0 LAB L501.6200 5-15 GAP Normal 6 Performed By: #### L500.2500 #### [facility] [address] [place], [place], [address] VENOUS BLOOD GAS Collected: 09/16/2017 Status: F Source: VAN 11:41 PM [facility] [place] [facility] TYPE CODE TESTS RESULT OUT OF RANGE REFERENCE UNITS LAB L9000.9990 Normal BLD GAS TYPE BRANDYN LAB L9001.1000 Normal SITE OTHER LAB L9001.1050 O2 Normal Delivery Dev Nasal Can LAB L9001.1055 /min Normal LPM 5.0 LAB L9001.1104 Normal Results To HOSP MD LAB L9001.1105 Normal Time Given 2335 LAB L9002.1110 7.32-7.42 High VBGpH - I-STAT 7.44 LAB L9002.1212 41-51 mmHg Low VBG pCO2 - 38.4 ISTA LAB L9002.1310 25-40 mmHg High VBG PO2 I-STAT 66 LAB L9002.2300 22-26 mmol/L Normal VBG HCO3 ISTAT 26 LAB L9002.2400 -1.0-3.5 mmol/L Normal VBG BE ISTAT 2 LAB L9002.2410 50-70 % High VBG SO2 ISTAT 94 LAB L9002.2415 23-33 mmol/L Normal VBG O2 CT 27 ISTAT Performed By: #### L9000.0810 #### [facility] [address] [place] [address] CBC W/DIFF, AUTOMATED Collected: 09/16/2017 Status: F Source: VAN 8:55 PM [facility] [place] [facility] TYPE CODE TESTS RESULT OUT OF RANGE REFERENCE UNITS LAB L100.1000 4.4-11.0 K/mm3 Normal WBC 6.7 LAB L100.1200 4.6-6.2 M/mm3 Low RBC 3.76 LAB L100.1300 13.0-16.5 g/dl Low HGB 11.2 LAB L100.1400 40-54 % Low HCT 34.1 LAB L100.1500 80-94 fL Normal MCV 90.7 LAB L100.1600 27.0-32.0 pg Normal MCH 29.8 LAB L100.1700 32-36 g/gl Normal MCHC 32.8 LAB L100.1810 11.6-14.6 % High RDW CV 15.1 LAB L100.1820 35.1-43.9 fl High RDW SD 49.2 LAB L100.1900 150-450 K/mm3 Low PLT 110 LAB L100.2000 6.2-12.0 fl Normal MPV 11.0 LAB L100.2100 47-70 % High NEUT% 72.2 LAB L100.2200 19-41 % Low LY% 15.6 LAB L100.2300 0-10 % High MONO% 11.3 LAB L100.2400 0-5 % Normal EO% 0.5 LAB L100.2500 0-1 % Normal BASO% 0.2 LAB L100.2550 0.0-0.9 % Normal IM GRAN % 0.200 Result Comment: IG% - Immature Granulocytes (promyelocytes, myelocytes and metamyelocytes) > 1% indicates that a LEFT SHIFT is Present. LAB L100.2620 2.0-7.7 X10 3/uL Normal Absolute Neut 4.8 LAB L100.2720 0.83-4.51 X10 3/ul Normal Absolute Lymph 1.04 Performed By: #### L100.0100 #### [facility] [address] [facility]. [place], [place], [id number] BASIC METABOLIC Collected: 09/16/2017 Status: F Source: VAN PROFILE ([facility]) 8:55 PM [facility] [place] TYPE CODE TESTS RESULT OUT OF RANGE REFERENCE UNITS LAB L501.0100 74-106 mg/dL Low GLU 71 Result Comment: Please note revised GLUCOSE reference range effective 2017. LAB L501.1000 7-18 mg/dL Normal BUN 17 LAB L501.1100 0.70-1.30 mg/dL Low CREAT,SERUM 0.54 Result Comment: The validity of the calculated GFR AND GFRAA in patients over 70 years has not been determined. Clinical correlation is essential. LAB L501.1110 >60 mL/min Normal EST GFR 183 Result Comment: Non- GFR Calc LAB L501.1115 >60 mL/min Normal EST GFR - AA 222 Result Comment: GFR Calc LAB L501.1255 ml/min Normal Estimated CRCL 135.03 LAB L501.1300 10-20 RATIO High BUN/CRE 31.5 LAB L501.2200 8.5-10 mg/dL .1 CA Normal 8.5 LAB L501.5300 136-14 mmol/L 5 NA Normal 141 LAB L501.5600 3.5-5. mmol/L 1 K Normal 4.7 LAB L501.5900 98-107 mmol/L CL Normal 107 LAB L501.6100 21.0-3 mmol/L 2.0 CO2 Normal 27.0 LAB L501.6200 5-15 GAP Normal 7 Performed By: #### L500.2500, L501.2300, L501.5200 #### [facility] [address] [place], [address] PHOSPHORUS Collected: 09/16/2017 Status: F Source: [place] 8:55 PM [facility] [place] TYPE CODE TESTS RESULT OUT OF RANGE REFERENCE UNITS LAB L501.2300 2.5-4.9 mg/dL Normal PHOS 3.5 Performed By: #### L500.2500, L501.2300, L501.5200 #### [facility] [place], [address] MAGNESIUM Collected: 09/16/2017 Status: F Source: [place] 8:55 PM [facility] [place] [facility] TYPE CODE TESTS RESULT OUT OF RANGE REFERENCE UNITS LAB L501.5200 1.6-2.6 mg/dL Normal MG 1.7 Performed By: #### L500.2500, L501.2300, L501.5200 #### [facility] [facility], [address] LACTIC ACID Collected: 09/16/2017 Status: F Source: [place] 8:55 PM [facility] [place] [facility] TYPE CODE TESTS RESULT OUT OF RANGE REFERENCE UNITS LAB L503.6005 0.4-2.0 mmol/L Normal LACTIC ACID 1.0 Performed By: #### L503.6005 #### [facility] [address] [place], [address] M R STAPH AUREUS Collected: 09/16/2017 Status: F Source: [place] DNA BY PCR 8:40 PM [facility] [place] [facility] TYPE CODE TESTS RESULT OUT OF RANGE REFERENCE UNITS LAB L8200.1100 Negative Normal MRSA Negative RESULT Performed By: #### L8200.1000 #### [facility] [address] [place], [address] CHEST 1 VIEW Observed: 09/16/2017 Status: F Source: [place] (PORTABLE) 8:09 PM [facility] REPOSITORY [facility] Imaging Services [address] [place] [address] Chest 1 View (Portable) MR#: [id number] Acct: [id number] Name: KRISS MICHAEL Rep #: [id number] : 1980 M 37 From: Luis Carlos Smith MD PCP: Timmy Perkins MD Status: ADM IN Study: Chest 1 View (Portable) Date of Exam: 09/16/17 Exam# [id number] Ordering Dr: Fredo Slaughter MD STUDY: X-RAY CHEST REASON FOR EXAM: Male, 37 years old. Respiratory distress TECHNIQUE: Single frontal view of the chest. COMPARISON: September 16, 2017 4:23 PM FINDINGS: Right MediPort in the IJ terminates in the right atrial region. Bilateral airspace disease unchanged. There is no demonstrated pleural abnormality. Normal size heart. Normal mediastinum and rachelle. Normal visualized pulmonary arteries. Normal visualized aortic arch and descending thoracic aorta. Normal visualized thoracic spine. Normal visualized ribs, clavicles, and shoulders. There is no demonstrated abnormality of the visualized soft tissue structures of the upper abdomen. RAD/Chest 1 View (Portable) IMPRESSION: Bilateral airspace disease unchanged Electronically Signed: Luis Carlos Smith MD at 21:33 EDT , Service support , CC: Timmy Perkins MD; Fredo Slaughter MD Pattern Technician: Signed URINALYSIS, ROUTINE Collected: 09/16/2017 Status: F Source: VAN (DIPSTICK) 8:00 PM [facility] [place] [facility] Order Comment: How was Urine Obtained? FIBER OPTIC TECHNICIAN TO SPECIFY TYPE CODE TESTS RESULT OUT OF RANGE REFERENCE UNITS LAB L400.3000 Yellow COLOR Normal Yellow LAB L400.3050 Clear Normal CLARITY Sl. Cloudy LAB L400.3200 Normal mg/dl Normal GLUCOSE, UR Normal LAB L400.3300 Negative mg/dL Normal BILIRUBIN URINE Negative LAB L400.3400 Negative mg/dl Normal KETONE UR Negative LAB L400.3465 1.002-1.030 Normal SP.GR. DIPSTX 1.010 LAB L400.3550 5.0 - 8.0 pH UR Normal 8.0 LAB L400.3600 Negative mg/dl PROT Normal DIPSTX Negative LAB L400.3700 Normal mg/dl Normal UROBILI Normal LAB L400.3750 Negative Normal NITRITE UR Negative LAB L400.3780 Negative /ul High OCCULT BLOOD-UR 150 LAB L400.3800 Negative /ul LEUK Normal ESTERASE Negative Performed By: #### L400.2011 #### [facility] [place], [place], [address] Observed: 09/16/2017 Status: F Source: VAN LEGIONELLA ANTIGEN 8:00 PM [facility] [place] [facility] [facility] Legionella, UR Legionella Antigen result interpretation: Negative Presumptive negative for Legionella pneumophila serogroup 1 antigen in urine, suggesting no recent or current infection. Legionella Ag, Urine Negative (See interpretation below) Performed By: #### M300.4500 #### [facility] [place], [address] Observed: 09/16/2017 Status: F Source: VAN CULTURE, URINE 8:00 PM [facility] [place] [facility] Urine Culture Culture exhibits no growth. Performed By: #### M100.0650 #### [facility] [place], [address] HISTORY AND PHYSICAL Observed: 09/16/2017 Status: F Source: VAN EXAM 5:58 PM [facility] [place] [facility] Medical Records Department [address] [place] [address] History and Physical 09/16/17 1749 MR#: [id number] Acct: [id number] Name: KRISS MICHAEL Rep #: [id number] : 1980 37 From: Torey James DO PCP: Timmy Perkins MD Status: REG ER Y Location: ED Problem List (1) Severe sepsis Status: Acute (2) Aspiration pneumonia Status: Acute Qualifiers: Aspiration pneumonia type: unspecified Laterality: bilateral Lung location: lower lobe of lung Qualified Code(s): J69.0 - Pneumonitis due to inhalation of food and vomit History of Present Illness Date of Admission: 09/16/17 Chief Complaint: tachycardia. tachypnea. spastisity. The patient is a 37 year old M who presents from home with noted to be tachypneic or spastic tachycardic. History is obtained through the emergency room physician as well as the patient's family. Patient has advanced cerebral palsy and is unable to communicate. Family who cares for him, notes that he has those symptoms in the skin be a manifestation of an underlying illness and as the patient is unable to articulate anything other brought into the hospital. Patient was found to be in severe sepsis with lactic acid of 2.6, tachycardia and tachypnea. Chest x-ray showed bilateral lower lobe infiltrates. Patient has not been hospitalized recently certainly within the past 3 months and patient is visualized gurgling. Family denies any obvious aspiration event the patient does have a PEG tube in place and does not eat or drink anything by mouth. Patient did receive Unasyn in the emergency room [] Past Medical History Past Medical History (Chronic Problems): Chronic Problems (Last Reviewed 09/07/17 @ 09:34 by Maury Waite MD) Nonrheumatic mitral valve prolapse (Chronic) C. 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) Medical History: Medical History (Last Reviewed 09/16/17 @ 17:51 by Torey James DO) Nonrheumatic mitral valve prolapse (Chronic) I34.1 Cerebral palsy (Chronic) G80.9 Quadriplegic Severe mental retardation Chronic constipation PEG tube Allergies cisapride monohydrate [From Propulsid] Allergy (Verified 05/30/17 12:34) Rash codeine Adverse Reaction (Verified 05/30/17 12:34) hallucinations metronidazole [From Flagyl] Adverse Reaction (Verified 05/30/17 12:34) Rash morphine Adverse Reaction (Verified 05/30/17 12:34) Hallucinations vancomycin Adverse Reaction (Verified 05/30/17 12:34) renal failure dust Allergy (Uncoded 05/30/17 12:34) Other Home Medications: Ambulatory Orders Medication Instructions Recorded Simethicone 40MG/0.6ML [Mylicon] 40 mg GT TID 11/09/13 Surgical History: Surgical History (Last Reviewed 09/16/17 @ 17:51 by Torey James DO) H/O eye surgery (Resolved) Z98.890 Surgical History: - - Insertion of a baclofen pump which has been replaced twice since then. PEG tube insertion. Left colostomy Psychiatric History: No pertinent psych hx Lives: With Family Smoking Status: Never smoker Tobacco Use: Non-smoker - *Family History Maternal Family History: Family History (Last Reviewed 09/16/17 @ 17:51 by Torey James DO) Mother Hypertension History Items: No pertinent history, - - None significant Paternal Family History: Family History (Last Reviewed 09/16/17 @ 17:51 by Torey James DO) Mother Hypertension History Items: No pertinent history Review of Systems Cardiovascular: Reports: Edema Respiratory: Reports: Shortness of Breath Comment: Unable to obtain from the patient as he is nonverbal. Reason for to the history of present illness for further details. VTE Information - Inpt Only VTE Present on Admission: No VTE Mechan Device Prophylaxis: None VTE Pharm Prophylaxis ordered?: Yes Patient Problems: Active and Suspected Problems (Last Reviewed 09/07/17 @ 09:34 by Maury Waite MD) Severe sepsis (Acute) Aspiration pneumonia (Acute) - Physical Exam General: - - Awake. Eyes are open. Nonverbal. HEENT: Atraumatic, Normocephalic, - - Macroglossia. No scleral icterus Oral: Moist Mucosa, No Gingival or Mucosal Lesions/ Ulcerations, - - Edentulous Neck: No Nodes, Thyroid Normal Size and Texture Lungs: Diminished, - - Coarse breath sounds bilaterally Cardiovascular: Regular Rhythm, Normal S1, Normal S2, Tachycardic Abdomen: Bowel Sounds Present, Soft, Non Tender, Non-Distended, - - PEG tube in left upper quadrant that is intact. Colostomy in left lower quadrant that is intact with some perhaps some contact dermatitis from the adhesives. Extremities: No Calf Tenderness, Edema - Trace lower extremity Skin: - - Contact dermatitis around the colostomy. Numerous left forearm 1 cm lesions extending down to his hand. Nonvesicular. Macular in appearance and slightly raised. Musculoskeletal: No Tenderness to Palpation of Joints or Extremities, Muscle Wasting Neurological: - - Extensor posturing in the upper extremities increased muscle tone throughout Vital Signs Temp Pulse Resp BP Pulse Ox 36.4 C L 123 H 16 99/84 H 95 09/16/17 15:11 09/16/17 17:00 09/16/17 17:00 09/16/17 15:11 09/16/17 17:00 Oxygen Flow Rate (L/min) 2 Oxygen Delivery Method Nasal Cannula Weight: 70.307 kg Body Mass Index (BMI) 30.2 Laboratory Tests Past 24 Hrs Chest x-ray reviewed and is poor study due to points poor effort but does show increased pulmonary edema change from May of this year. Assessment/Plan All Active Problems (Last Reviewed 09/07/17 @ 09:34 by Maury Waite MD) Severe sepsis (Acute) Aspiration pneumonia (Acute) H/O eye surgery (Resolved) Aspiration pneumonia (Acute) Sepsis (Acute) Edema (Acute) Tachycardia (Acute) Difficult intravenous access (Acute) Sepsis (Acute) C. difficile colitis (Resolved) 1. Severe sepsis * Secondary to pneumonia * IV fluids * Recheck lactic acid * Patient is on Lasix just solely for edema. That is going to be held for now. * Blood cultures ordered * Will also check urine studies as well. Should be noted that the patient does not have a catheter at baseline uses diapers. 2. Suspected aspiration pneumonia * Continue with Unasyn * Pulmonary toilet with bronchodilators as well as vest therapy * Check sputum culture. Check urinary antigens for Streptococcus and Legionella. 3. Cerebral palsy * Advanced and complicates care * Family inquired about being transferred to [facility] rather than staying here. I informed them that I am certainly comfortable with patient staying here with his pneumonia and cerebral palsy. Though I did leave that up to the family if they would prefer to stay here rather than go to [facility] since I brought that up. They stated that they would prefer he be admitted here. 4. DVT prophylaxis with Lovenox 5. Advanced care planning: Without my prompting the family brought up not wishing to discuss DNR as a felt that when they are asked that at other times that they are almost being coerced into making the patient DNR. They do not wish for the patient have a DNR status at this time was for him to be full CODE STATUS. I did try to diffuse situation that they brought up by saying that generally when it is asked should be just to clarify rather than try to make them make a decision that they are uncomfortable with. Code Visit Inpatient E AND M: [id number] Init Hosp L3 09/16/17 1758 <Electronically signed by Torey James DO> Date Torey James DO Cosigner Signature: Date (if applicable) CC: Torey James DO; Timmy Perkins MD Signed EMERGENCY DEPARTMENT Observed: 09/16/2017 Status: F Source: [place] SUMMARY 4:52 PM [facility] [place] [facility] Medical Records Department [address] [place] [address] Emergency Department Summary 09/16/17 1611 MR#: [id number] Acct: [id number] Name: KRISS MICHAEL Rep #: [id number] : 1980 37 From: Dario De La Torre MD PCP: Timmy Perkins MD Status: REG ER - ER Visit Summary Date of Service: 09/16/17 Chief Complaint: Rapid heart rate, rapid respiratory rate and low pulse ox History of Present Illness: The patient is a 37 M who has significant past medical history for cerebral palsy, aspiration pneumonia and is totally dependent on parents for care. He has a LONG tube left upper quadrant a baclofen pump right upper quadrant port right subclavian and colostomy left lower quadrant. He is nonverbal. History that was obtained was per parents. He has not required a visit to the emergency room since May 2017. He has not been admitted to any hospital past 12 months. Physical Examination: He is tachycardic and tachypneic. Pulse ox 92% on 2 L. He normally does not wear oxygen during the day. He is not febrile. Blood pressure is low at 99/84. Pupils equal round reactive. Mucosa moist. Poor dentition. Nares patent. Trachea midline. There is no stridor. He has wheezing heard throughout. Heart is rapid and regular. There is no retractions or use of accessory muscles. Abdomen is firm but not tender. He has 2-3+ edema the lower extremities. Neurologically is at baseline per mom and dad. Test Results: Portable chest x-ray reveals bilateral infiltrates compared to prior x-ray dated May 30, 2017. Monitor reveals a sinus tachycardia rate of 127. White count is normal. Differential is normal. White blood count is 112. BMP reveals slightly elevated BUN of 20. BUN to creatinine ratio is approximately 30-1. Lactate is 2.6 Emergency Department Course and Treatment: IV was established. CBC, BMP and lactate were obtained. Chest x-ray was obtained because of the abnormal breath sounds. Because he is wheezing he was treated with a DuoNeb and albuterol aerosol. I was informed by his nurse that he vomited and aspirated. He has not had a drop in his pulse ox. There is been a drop in his heart rate, however. Treatment Plan: Unasyn for aspiration pneumonia. Disposition: To be admitted since he has bilateral pneumonia and is tachycardic, tachypneic with hypoxia without oxygen Impression: 1. Bilateral pneumonia, aspiration 2. Respiratory failure with hypoxia 3. Sepsis severe 4. Bronchospasm 5. History of cerebral palsy This note was generated with [employer] dictation software. It may contain incorrect words, spelling, and punctuation that were not noted in review of the chart prior to signing ED Disposition - Plan for ED Patient: Chief Complaint: Shortness of Breath Referrals: Timmy Perkins MD [Primary Care Provider] - What to do if you have Problems For any increased pain, shortness of breath, bleeding, nausea or vomiting, chest pain, or any unexpected problems, contact your Primary Care Provider. Call [facility] ([phone]) or report to the closest Emergency Room. Call 911 if necessary. 09/16/17 1652 <Electronically signed by Dario De La Torre MD> Date Dario De La Torre MD Cosigner Signature (If Indicated): Date CC: Timmy Perkins MD CBC W/DIFF, AUTOMATED Collected: 09/16/2017 Status: F Source: [place] 4:15 PM [facility] [place] TYPE CODE TESTS RESULT OUT OF RANGE REFERENCE UNITS LAB L100.1000 4.4-11.0 K/mm3 Normal WBC 6.3 LAB L100.1200 4.6-6.2 M/mm3 Low RBC 4.03 LAB L100.1300 13.0-16.5 g/dl Low HGB 12.0 LAB L100.1400 40-54 % Low HCT 36.7 LAB L100.1500 80-94 fL Normal MCV 91.1 LAB L100.1600 27.0-32.0 pg Normal MCH 29.8 LAB L100.1700 32-36 g/gl Normal MCHC 32.7 LAB L100.1810 11.6-14.6 % High RDW CV 15.1 LAB L100.1820 35.1-43.9 fl High RDW SD 50.0 LAB L100.1900 150-450 K/mm3 Low PLT 112 LAB L100.2000 6.2-12.0 fl Normal MPV 10.7 LAB L100.2100 47-70 % Normal NEUT% 57.2 LAB L100.2200 19-41 % Normal LY% 28.8 LAB L100.2300 0-10 % High MONO% 12.5 LAB L100.2400 0-5 % Normal EO% 1.3 LAB L100.2500 0-1 % Normal BASO% 0.2 LAB L100.2550 0.0-0.9 % Normal IM GRAN % 0.000 Result Comment: IG% - Immature Granulocytes (promyelocytes, myelocytes and metamyelocytes) > 1% indicates that a LEFT SHIFT is Present. LAB L100.2620 2.0-7.7 X10 3/uL Normal Absolute Neut 3.6 LAB L100.2720 0.83-4.51 X10 3/ul Normal Absolute Lymph 1.82 Performed By: #### L100.0100 #### [facility] [address] [place], [place], [id number] BASIC METABOLIC Collected: 09/16/2017 Status: F Source: [place] PROFILE (BMP) 4:15 PM [facility] [place] TYPE CODE TESTS RESULT OUT OF RANGE REFERENCE UNITS LAB L501.0100 74-106 mg/dL Normal GLU 82 Result Comment: Please note revised GLUCOSE reference range effective 2017. LAB L501.1000 7-18 mg/dL High BUN 20 LAB L501.1100 0.70-1.30 mg/dL Low CREAT,SERUM 0.60 Result Comment: The validity of the calculated GFR AND GFRAA in patients over 70 years has not been determined. Clinical correlation is essential. LAB L501.1110 >60 mL/min Normal EST GFR 164 Result Comment: Non- GFR Calc LAB L501.1115 >60 mL/min Normal EST GFR - AA 198 Result Comment: GFR Calc LAB L501.1255 ml/min Normal Estimated CRCL 121.53 LAB L501.1300 10-20 RATIO High BUN/CRE 33.6 LAB L501.2200 8.5-10 mg/dL .1 CA Normal 8.8 LAB L501.5300 136-14 mmol/L 5 NA Normal 137 LAB L501.5600 3.5-5. mmol/L 1 K Normal 4.6 LAB L501.5900 98-107 mmol/L CL Normal 102 LAB L501.6100 21.0-3 mmol/L 2.0 CO2 Normal 29.0 LAB L501.6200 5-15 GAP Normal 6 Performed By: #### L500.2500 #### [facility] [address] [place], [place], [address] LACTIC ACID Collected: 09/16/2017 Status: F Source: [place] 4:15 PM [facility] [place] Order Comment: Yes/No query for Sepsis Lactate Rule Y TYPE CODE TESTS RESULT OUT OF REFERENCE UNITS RANGE LAB L503.6005 0.4-2.0 mmol/L High LACTIC ACID 2.6 Result Comment: Critical Result(s) Called at: 16:51:51 09/16/2017 by: Valentine FREDERICK Performed By: #### L503.6005 #### [facility] [address] [place], [place], [id number] Observed: 09/16/2017 Status: F Source: [place] CULTURE, BLOOD (WB) 4:15 PM [facility] [place] BC No growth in 5 days. Performed By: #### M200.1000 #### [facility] [address] [place], [place], [id number] CHEST PA AND LATERAL Observed: 09/16/2017 Status: F Source: [place] 3:31 PM [facility] REPOSITORY [facility] Imaging Services [address] [place] [address] Chest PA and Lateral MR#: [id number] Acct: [id number] Name: KRISS MICHAEL Rep #: [id number] : 1980 M 37 From: Luis Carlos Smith MD PCP: Timmy Perkins MD Status: REG ER Study: Chest PA and Lateral Date of Exam: 09/16/17 Exam# [id number] Ordering Dr: Dario De La Torre MD STUDY: X-RAY CHEST REASON FOR EXAM: Male, 37 years old. Respiratory distress TECHNIQUE: Frontal and lateral views of the chest. COMPARISON: May 30, 2017 FINDINGS: Right IJ MediPort terminates in the right atrium unchanged. Right lower lobe airspace disease and left perihilar infiltrate. Mild edema. Elevated right hemidiaphragm. There is no demonstrated pleural abnormality. Normal size heart. Normal mediastinum and rachelle. Normal visualized pulmonary arteries. Normal visualized aortic arch and descending thoracic aorta. Normal visualized thoracic spine. Normal visualized ribs, clavicles, and shoulders. There is no demonstrated abnormality of the visualized soft tissue structures of the upper abdomen. RAD/Chest PA and Lateral IMPRESSION: Bilateral airspace disease. recommend follow-up to resolution. Electronically Signed: Luis Carlos Smith MD at 16:41 EDT , Service support , CC: Timmy Perkins MD; Dario De La Torre MD Pattern Technician: Signed CARDIOLOGY VISIT Observed: 09/07/2017 Status: F Source: [place] REPORT 9:42 AM [facility] [place] [facility] [address] [place] [address] OFFICE VISIT Date of Service: 09/07/17 MR#: [id number] Acct: [id number] Name: KRISS MICHAEL Rep #: [id number] : 1980 Provider: Maury Waite MD Age/Sex: 37/M Location[place] [facility] [place] Status: Signed HPI HPI Chief Complaint: Follow-up visit. Details: KRISS MICHAEL, is a 37 M who presents to the office today for a follow-up visit. He is a gentleman with a history of cerebral palsy previous G-tube as well as history of preserved left ventricular systolic function. You do remember that he did have an echocardiogram which demonstrated an ejection fraction of 65% and a chest x-ray as well as natruretic peptide level which was normal. His most recent complaint is more referable to pedal edema which is bilateral. He has had no neck arm or jaw discomfort suggest angina no dizziness or diaphoresis no near syncope or syncope he does not appear to have gained any significant weight he does spend a fair amount of his stay in his automatic wheelchair. His physical exam today demonstrates clear lung pisano regular rate and rhythm and 1+ pitting edema. His most recent electrolytes were noted to be normal with normal kidney function and creatinine clearance. Intake Vital Signs09/07/17 Height 5 ft 09/07/17 Weight: 155 lb 09/07/17 Body Mass Index (BMI) 30.2 09/07/17 Blood Pressure 112/68 09/07/17 Blood Pressure Location Lt brachial Intake Visit Reasons: 6 M FU Respiratory Coordinator Required: No Is patient in pain?: No Allergies cisapride monohydrate [From Propulsid] Allergy (Verified 05/30/17 12:34) Rash codeine Adverse Reaction (Verified 05/30/17 12:34) hallucinations metronidazole [From Flagyl] Adverse Reaction (Verified 05/30/17 12:34) Rash morphine Adverse Reaction (Verified 05/30/17 12:34) Hallucinations vancomycin Adverse Reaction (Verified 05/30/17 12:34) renal failure dust Allergy (Uncoded 05/30/17 12:34) Other Medications Simethicone 40MG/0.6ML [Mylicon] 40 mg GT TID 11/09/13 [History Confirmed 09/07/17] Baclofen 734.1 mcg INTRATH CONT 01/12/14 [History Confirmed 05/30/17] Cetirizine HCl [Children's Allergy Relief] 10 mg GT DAILY PRN PRN 01/12/14 [History Confirmed 05/30/17] Lactobacillus Combination No.4 [Probiotic] 1 cap GT DAILY 01/12/14 [History Confirmed 05/30/17] Pantoprazole Sodium [Protonix] 20 ml GT BID 08/09/14 [History Confirmed 09/07/17] Senna/Docusate Sodium 20 ml GT PRN PRN 08/03/15 [History Confirmed 09/07/17] Ondansetron HCl [Zofran Solution] 5 ml GT TID PRN PRN 08/30/15 [History Confirmed 09/07/17] Polyethylene Glycol 3350 [Miralax] 17 gm GT DAILY 08/30/15 [History Confirmed 09/07/17] Magnesium Hydroxide [Milk Of Magnesia] 35 - 50 ml GT DAILY PRN PRN 12/20/15 [History Confirmed 05/30/17] Metoclopramide [Reglan Solution] 5 mg GT TID 12/20/15 [History Confirmed 09/07/17] Lactose-Reduced Food/Fiber [Jevity 1 Nery Liquid] 237 ml GT 4X/DAY 03/11/16 [History Confirmed 05/30/17] Lactulose [Chronulac] 20 gm GT DAILY 06/01/16 [History Confirmed 09/07/17] Phenobarbital 60 mg GT BID 02/19/17 [History Confirmed 09/07/17] furosemide 20 mg tablet 20 mg PO QDAY #90 tab 09/07/17 [Rx Confirmed 09/07/17] [facility] Medical History Nonrheumatic mitral valve prolapse (Chronic) Cerebral palsy (Chronic) Surgical History H/O eye surgery (Resolved) Family History Mother Hypertension Social History Smoking Status: Never smoker ROS Const Const: Negative for fatigue, weakness, night sweats, excessive sweating, frequent falls, headache(s) or daytime sleepiness Eyes Eyes: Negative for loss of peripheral vision, transient loss of vision, blind spots, double vision or blurry vision ENT ENT: Negative for headache(s), dizziness, balance problems, Nosebleed/epistaxis, tongue swelling or lip swelling Cardio Chest Pain: No Palpitations: No Edema: None Muscle aches with walking: None Resp Respiratory: Negative for SOB at rest, SOB orthopnea\SOB lying down, Cough, paroxysmal nocturnal dyspnea or SOB with activity GI GI: Negative nausea, vomiting, heartburn, black,tarry stools or bright, red blood in stools : Negative for hematuria Musc Musc: Negative for balance problems, muscle aches/ myalgia, muscle weakness or joint pain Skin Skin: Negative non-healing lesions, unusual bruising or rash Neuro Neuro: Negative for weakness, frequent falls, headache(s), double vision, dizziness, lightheadedness, orthostatic symptoms, blurry vision or lack of coordination Pedro Hematologic/Lymphatic: Negative for easy bruising or easy bleeding Endo Endo: Negative for fatigue, excessive sweating, cold intolerance, heat intolerance, increased thirst/drinking or hair loss Psych Psych: Negative for anxiety or depression Allergy Allergy/Immunology: Negative for throat swelling, Negative for tongue swelling, Negative for hives, Negative for rash, Negative for lip swelling Cardiology Exam Const Appearance: cooperative, healthy appearing, well developed, well groomed and no acute distress Nutritional Appearance: well nourished and average body habitus Orientation: alert, awake and oriented x3 Head Head: normal to inspection, normocephalic and atraumatic Ears: hearing grossly normal bilaterally and external ears normal Nose: external nose normal, nasal mucous membranes and turbinates normal, nares normal, septum normal, no nasal discharge Face and Sinus: face symmetric Mouth: oral mucosae normal, tongue normal, oropharynx normal and moist mucous membranes Teeth and gingiva: dentition normal Throat: posterior oropharynx normal, tonsils normal and uvula midline Eyes General: appearance normal, both eyes and all related structures Eyelids: eyelids normal Conjunctivae: conjunctivae normal Pupils: PERRL, normal by confrontation and accommodation normal EOM: EOM intact bilaterally Neck Neck: normal visual inspection, trachea midline and no JVD JVD: +5 Carotids: normal carotid upstroke and bounding pulses Chest Chest inspection: normal inspection of the chest, symmetric chest movement and normal respiratory effort Auscultation: Bilateral: Clear to Auscultation Cardio Palpation: normal PMI Rate: regular rate Rhythm: regular rhythm Heart sounds: S1 normal, S2 normal and normal, physiologic split S2; negative rub, gallop or murmur GI GI: normal to inspection, soft, no hepatosplenomegaly and bowel sounds present Neuro General: alert, awake, oriented x3, no focal sensory deficit, gait normal and moves all extremities Skin Skin: no rashes or lesions noted Extremities Pulses: Normal: Right Femoral Pulse, Left Femoral Pulse, Right Dorsalis Pedis Pulse, Left Dorsalis Pedis Pulse, Right Posterior Tibial Pulse, Left Posterior Tibial Pulse, Right Radial Pulse, Left Radial Pulse Lower Extremity Edema: +1: Bilateral Musculoskel Musculoskeletal: No joint tenderness Psych Psychological: normal affect Assessment AND Plan 1. Edema R60.9 Plan He does have evidence of pedal edema which I suspect is dependent. Recommended at this time would be for him to try CONOR hose stockings have asked him to go to [facility] to get measured for appropriate pressurized and measured stockings. In addition I would like to put him on Lasix 20 mg 3 times a week. He will have electrolytes obtained once a month to make sure his potassium is okay. Thank you for allowing me to participate in the care of your patient. Please don't hesitate to call if any issues arise Orders Orders: Plan Detail Other Medications New: Follow Up 6 Months (anesthesiologist physician) Coding Level of Care Code Off vis,est,level 4 Diagnoses Edema R60.9 Coding Level of Care Code Off vis,est,level 4 Diagnoses Edema R60.9 09/07/17 0942 <Electronically signed by Maury Waite MD> Date Maury Waite MD Cosigner Signature: Date (if applicable) CC: Timmy Perkins MD PROGRESS Observed: 08/17/2017 Status: COMPLETED Source: [place] 11:03 AM [facility] REPOSITORY HNO ID: [id number] Author: Estefania Gonzalez Service: (none) Author Type: Physician Type: Progress Notes Filed: 08/18/2017 7:43 AM Note Text: BOTULINUM TOXIN THERAPY - Informed consent was signed on 08/03/12 The patient was accompanied by his parents and Morenita rhoades. Current complaints / history since last visit: The patient was last seen in the spasticity clinic for botulinum toxin injections on 05/11/17. The patient's mother reports that botox injections are effective with less stiffness and improved range of motion. He is more comfortable. Dressing and hygiene are easier. There is better positioning in the arms. Family denies spasms. He performs stretching exercises twice daily. The patient's mother states that during his last baclofen pump refill, there was a volume discrepancy of 3.5 ml. Mom notes that usually there is a smaller discrepancy. Spasticity has remained constant. He has no fevers or signs of baclofen withdrawal. His next alarm date is October 20, 2017. BT therapy effective? Yes on stiffness, on range of motion, on hygiene and on comfort Duration of benefit: 2 1/2 months BT therapy well tolerated? Yes Spasm scale: No spasms Pain related to spasticity: No 0 on a scale of 0 to 10 per mother Nutritional concerns: Yes, dysphagia, predominantly receiving nutrition via G-tube, still on supplemental nutrition, max of 4 cans of Jevity/day, appetite- will eat seldom (pleasure feedings), weight stable, [id number] lbs Driving issues: N/A Safety concerns regarding living situations and safety at home: No, he lives with his parents. They live in a ranch home with a basement. There is an elevator. His parents are his primary care givers and he has about 60 hours of caregivers a week. Current wheelchair is four years old since 04/2014. He requires total assistance with ADLs and IADLs; this is provided by family and home care. Risk of falls: N/A, transfers with maximal assistance or via Juanita lift. Examination: Strength: Unable to assess formally. Bilateral external rotation at hips ? Spasticity Right Left Shoulder 2 1+ Elbow fl/ext 1+ / 1 1+ / 0 Wrist fl/ext 2 / 0 2 / 0 Finger fl/ext 2 / 0 1 / 0 Hip adductors 0 0 Knee extensors 0 0 Knee flexors 0 0 Ankle plantarflexors 0 0 Modified Luis Scale 0 - No increase in tone 1 - Slight increase in tone (catch and release at end of ROM) 1+ - Slight increase in tone, manifested by a catch, followed by minimal resistance throughout remainder (less than half of ROM) 2 - Marked increase in tone through most of the ROM, but affected part(s) easily moved 3 - Considerable increase in tone; passive movement difficult 4 - Affected part(s) rigid in flexion or extension SPASMS observed: RUE: No LUE: No RLE: No LLE: No Timed 25 foot walk: N/A Assistance Required: wheelchair Gait is: N/A EDSS: 9.0 - Helpless bedbound patient - can communicate and eat A.I.: 9 - Restricted to wheelchair, dependent for transfers Informed consent was signed on 07/03/12 Procedure: Botulinum Toxin injections Pt ID verified with patient with 2 identifiers: Yes Procedure verified with patient's parents: Yes, botox shots Procedure confirmed with physician and work station support specialist: Yes Personnel involved in the procedure: Physician: Estefania Gonzalez MD Executive Steward: Alejandrina Morse RN UN[employer]ERSAL PROTOCOL / SAFETY CHECKLIST Procedure to be performed: Botox injections Sign in Communication: Completed Time Out: Team Confirms the Correct Patient, Correct Procedure, Correct Site and Site Marking, Correct Position (if applicable). Time: 11:32 AM Affirmation of Time Out: N/A Sign Out Discussion: Completed The patient was positioned sitting in his wheelchair. After skin preparation with alcohol swabs, a total dose of 600 units of Botox were injected as follows: ? Muscle Limb Dose EMG Comments FDP RUE 50 units Yes 1 site FCU RUE 50 units Yes 1 site FCR RUE 50 units Yes 1 site FPL RUE 25 units Yes 1 site Adductor pollicis RUE 25 units Yes 1 site Quadriceps RLE 100 units Yes 2 sites FDP LUE 50 units Yes 1 site FCU LUE 50 units Yes 1 site FCR LUE 50 units Yes 1 site FPL LUE 25 units Yes 1 site Adductor pollicis LUE 25 units Yes 1 site Quadriceps LLE 100 units Yes 2 sites Dilution: 100 units / 2 mL Lot #: [id number] (6 vials) Expiration date: January 2020 The injections were well tolerated. 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 Botulinum toxin injections were effective and well tolerated. We repeated botox injections today without immediate complications. We will repeat botox injections in 3 months, same muscles and total dose of 600 units. The patient is approaching end of battery life for his baclofen pump. As of 07/23/17, he had 16 months of estimated battery life. We will have him schedule an ITB pump follow up and evaluation by neurosurgery with his botox injections in 3 months. At that time, I will place a referral to neurosurgery to being planning for his pump surgery. The patient's mother notes that he had a 3.5 ml volume discrepancy with his last baclofen pump refill. There are no signs of baclofen withdrawal and no changes in spasticity. We will continue to monitor and will refer to neurosurgery for ITB pump replacement at next visit. We will plan to replace the patient's pump sooner. The patient's family may contact the office if there are any questions or concerns or if there are signs of baclofen withdrawal. Plan: 1 - Repeat injections in 3 months, 600 units. 2 - We will schedule ITB pump follow up same day as botox injections in 3 months. 3 - Referral to neurosurgery regarding ITB pump replacement due to end of battery life. 4 - Monitor baclofen pump volume discrepancy. 5 - Perform stretching exercises daily. 6 - Please fax a copy of the visit note to Timmy Perkins MD Time spent with patient: 45 mn. Estefania Gonzalez MD CNOV Observed: 08/17/2017 Status: COMPLETED Source: [place] 11:00 AM [facility] REPOSITORY Office Visit ([facility]) ROJELIOKRISS Alvarez ([id number]) 1980 M Date Time Provider Department 08/17/17 11:00 AM ESTEFANIA GONZALEZ During your visit today, we recorded the following information about you: Weight 70.3 kg Estefania Gonzalez MD 08/17/2017 7:39 AM Signed You have received botulinum toxin injections today. The skin around the site of injections should be monitored for a couple of days. If redness or swelling occur, the skin should be examined by a health child care development specialist to rule out infection. If you experience pain in the muscles injected over the next few days, you can take Tylenol to control the pain (unless contra-indicated). Please call our office at [phone] with any questions or concerns. MD Estefania Spicer MD 08/18/2017 7:43 AM Signed BOTULINUM TOXIN THERAPY - Informed consent was signed on 08/03/12 The patient was accompanied by his parents and Morenita rhoades. Current complaints / history since last visit: The patient was last seen in the spasticity clinic for botulinum toxin injections on 05/11/17. The patient's mother reports that botox injections are effective with less stiffness and improved range of motion. He is more comfortable. Dressing and hygiene are easier. There is better positioning in the arms. Family denies spasms. He performs stretching exercises twice daily. The patient's mother states that during his last baclofen pump refill, there was a volume discrepancy of 3.5 ml. Mom notes that usually there is a smaller discrepancy. Spasticity has remained constant. He has no fevers or signs of baclofen withdrawal. His next alarm date is October 20, 2017. BT therapy effective? Yes on stiffness, on range of motion, on hygiene and on comfort Duration of benefit: 2 1/2 months BT therapy well tolerated? Yes Spasm scale: No spasms Pain related to spasticity: No 0 on a scale of 0 to 10 per mother Nutritional concerns: Yes, dysphagia, predominantly receiving nutrition via G-tube, still on supplemental nutrition, max of 4 cans of Jevity/day, appetite- will eat seldom (pleasure feedings), weight stable, lbs Driving issues: N/A Safety concerns regarding living situations and safety at home: No, he lives with his parents. They live in a ranch home with a basement. There is an elevator. His parents are his primary care givers and he has about 60 hours of caregivers a week. Current wheelchair is four years old since 04/2014. He requires total assistance with ADLs and IADLs; this is provided by family and home care. Risk of falls: N/A, transfers with maximal assistance or via Juanita lift. Examination: Strength: Unable to assess formally. Bilateral external rotation at hips ? Spasticity Right Left Shoulder 2 1+ Elbow fl/ext 1+ / 1 1+ / 0 Wrist fl/ext 2 / 0 2 / 0 Finger fl/ext 2 / 0 1 / 0 Hip adductors 0 0 Knee extensors 0 0 Knee flexors 0 0 Ankle plantarflexors 0 0 Modified Luis Scale 0 - No increase in tone 1 - Slight increase in tone (catch and release at end of ROM) 1+ - Slight increase in tone, manifested by a catch, followed by minimal resistance throughout remainder (less than half of ROM) 2 - Marked increase in tone through most of the ROM, but affected part(s) easily moved 3 - Considerable increase in tone; passive movement difficult 4 - Affected part(s) rigid in flexion or extension SPASMS observed: RUE: No LUE: No RLE: No LLE: No Timed 25 foot walk: N/A Assistance Required: wheelchair Gait is: N/A EDSS: 9.0 - Helpless bedbound patient - can communicate and eat A.I.: 9 - Restricted to wheelchair, dependent for transfers Informed consent was signed on 07/03/12 Procedure: Botulinum Toxin injections Pt ID verified with patient with 2 identifiers: Yes Procedure verified with patient's parents: Yes, botox shots Procedure confirmed with physician and work station support specialist: Yes Personnel involved in the procedure: Physician: Estefania Gonzalez MD Executive Steward: Alejandrina Morse RN UNIVERSAL PROTOCOL / SAFETY CHECKLIST Procedure to be performed: Botox injections Sign in Communication: Completed Time Out: Team Confirms the Correct Patient, Correct Procedure, Correct Site and Site Marking, Correct Position (if applicable). Time: 11:32 AM Affirmation of Time Out: N/A Sign Out Discussion: Completed The patient was positioned sitting in his wheelchair. After skin preparation with alcohol swabs, a total dose of 600 units of Botox were injected as follows: ? Muscle Limb Dose EMG Comments FDP RUE 50 units Yes 1 site FCU RUE 50 units Yes 1 site FCR RUE 50 units Yes 1 site FPL RUE 25 units Yes 1 site Adductor pollicis RUE 25 units Yes 1 site Quadriceps RLE 100 units Yes 2 sites FDP LUE 50 units Yes 1 site FCU LUE 50 units Yes 1 site FCR LUE 50 units Yes 1 site FPL LUE 25 units Yes 1 site Adductor pollicis LUE 25 units Yes 1 site Quadriceps LLE 100 units Yes 2 sites Dilution: 100 units / 2 mL Lot #: [id number] (6 vials) Expiration date: January 2020 The injections were well tolerated. 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) Patient with cerebral palsy and spastic quadriparesis. Botulinum toxin injections were effective and well tolerated. We repeated botox injections today without immediate complications. We will repeat botox injections in 3 months, same muscles and total dose of 600 units. The patient is approaching end of battery life for his baclofen pump. As of 07/23/17, he had 16 months of estimated battery life. We will have him schedule an ITB pump follow up and evaluation by neurosurgery with his botox injections in 3 months. At that time, I will place a referral to neurosurgery to being planning for his pump surgery. The patient's mother notes that he had a 3.5 ml volume discrepancy with his last baclofen pump refill. There are no signs of baclofen withdrawal and no changes in spasticity. We will continue to monitor and will refer to neurosurgery for ITB pump replacement at next visit. We will plan to replace the patient's pump sooner. The patient's family may contact the office if there are any questions or concerns or if there are signs of baclofen withdrawal. Plan: 1 - Repeat injections in 3 months, 600 units. 2 - We will schedule ITB pump follow up same day as botox injections in 3 months. 3 - Referral to neurosurgery regarding ITB pump replacement due to end of battery life. 4 - Monitor baclofen pump volume discrepancy. 5 - Perform stretching exercises daily. 6 - Please fax a copy of the visit note to Timmy Perkins MD Time spent with patient: 45 mn. Estefania Gonzalez MD Referring Provider: ESTEFANIA GONZALEZ [[id number]] Allergies As of Date: 08/17/2017 Noted Allergy Reaction CODEINE 06/22/2005 14 - Other: See Comments Comments: hyperactivity per mom FLAGYL (METRONIDAZOLE HCL) 05/08/2014 2 - Rash MORPHINE 06/22/2005 14 - Other: See Comments Comments: causes hyperactivity per mom PROPULSID 02/08/2012 2 - Rash Date Reviewed: 08/17/2017 Reviewed by: Estefania Gonzalez - Fully Assessed Reason for Visit: Spasticity [487] Botulinum Toxin Injections [Other] Injections [199] Cmt: botox Reason For Visit History Recorded Primary Visit Diagnosis:Spastic quadriparesis ([facility]) [G82.50] Other Visit Diagnosis:Cerebral palsy, unspecified type (HCC) [G80.9] Order(s):CONSULT TO NEUROSURGERY [369049] Order #: [id number]: 1 Prescriptions as of 08/17/2017 Sig: LORAZEPAM 1 MG TABLET Take 1 mg by mouth every 8 ho* BACLOFEN 20 MG TABLET 1 tablet three times daily as* ONABOTULINUMTOXINA 100 UNIT S* Inject 800 Units intramuscula* SENNOSIDES 8.8 MG/5 ML SYRUP Take 5 mL by mouth once daily* LACTULOSE 10 GRAM/15 ML ORAL * Take 7.5 g by mouth once keshav* POTASSIUM CHLORIDE 20 MEQ/15 * Take 20 mEq by mouth once jenni* BACLOFEN 2,000 MCG/ML INTRATH* [employer] Refill Kit # [id number], * MICONAZOLE NITRATE 2 % TOPICA* Apply 1 application to affect* Patient taking differently: Apply 1 application to affect* POLYETHYLENE GLYCOL 3350 17 G* 1 Packet once daily. COMPOUNDED PRESCRIPTION Jevity 1.2: 40 ml/hr for 24 h* Patient taking differently: Jevity 1.0: 40 ml/hr for 24 h* PANTOPRAZOLE ORAL LIQUID 40 M* 20 mg by PEG route twice ksehav* LACTOBACILL.ACIDOPHILUS (BULK* 1 capsule by PEG route once d* CETIRIZINE 10 MG TABLET Take 1 tablet by mouth once d* Patient taking differently: 10 mg by PEG route once daily. MAGNESIUM HYDROXIDE 400 MG/5 * Take 30 mL by mouth once keshav* Patient taking differently: 30 mL by PEG route once daily* PHENOBARBITAL 20 MG/5 ML (4 M* Give 15 ml twice a day. Patient taking differently: 60 mg by PEG route twice keshav* Problem List As Of Date 08/17/2017 Noted Resolved ASA CLASS III [1003] INVALID FOR* Infantile cerebral palsy (HCC) [G80.9] INVALID FOR* Priority: L More... Septic shock [A41.9, R65.21] INVALID FOR*03/09/2012 Priority: B More... Acute respiratory failure [J96.00] INVALID FOR*03/09/2012 Priority: E More... SUMMARY [V999.95] INVALID FOR*04/11/2011 Priority: A Transaminitis [R74.0] INVALID FOR*03/09/2012 Priority: M More... Pancreatitis [K85.90] INVALID FOR*03/09/2012 Priority: M More... Dilatation of colon [K59.39] INVALID FOR*03/09/2012 Priority: L More... Upper GI bleed [K92.2] INVALID FOR*03/09/2012 Priority: C More... Renal failure, acute [N17.9] INVALID FOR*03/09/2012 Priority: A More... Aspiration of gastric contents [T17.910A] INVALID FOR*03/09/2012 Priority: D More... More... Hypernatremia [E87.0] INVALID FOR*03/09/2012 Priority: F More... Congenital quadriplegia [G80.8] INVALID FOR* Hypoxia [R09.02] INVALID FOR*03/11/2012 More... 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 Withdrawal syndrome [F19.939] INVALID FOR*12/12/2012 More... Constipation [K59.00] INVALID FOR*03/11/2012 More... Swallowing impairment [R13.10] INVALID FOR* More... Sepsis [A41.9] INVALID FOR*12/17/2012 Priority: B More... Gastritis, acute [K29.00] INVALID FOR* Priority: C More... Acute respiratory failure with hypoxia [J96.01] INVALID FOR*12/17/2012 Priority: A More... C. difficile colitis [A04.72] INVALID FOR* Priority: A More... SUMMARY [V999.95] INVALID FOR* Priority: Mild More... Transaminitis [R74.0] INVALID FOR* Sepsis [A41.9] INVALID FOR* Priority: B More... Hyperthermia [R50.9] INVALID FOR* Priority: A More... Seizures (HCC) [R56.9] INVALID FOR* Priority: E More... Constipation [K59.00] INVALID FOR* Priority: C More... Vomiting [R11.10] INVALID FOR* Priority: B More... Skin rash [R21] INVALID FOR* Priority: D More... Post-op pain [G89.18] INVALID FOR* More... DVT prophylaxis [RPP2595] INVALID FOR* Priority: J More... Clostridium difficile infection [B96.89] INVALID FOR* Priority: B More... Chronic constipation [K59.09] INVALID FOR* Priority: D More... Congenital cerebral palsy (HCC) [G80.9] INVALID FOR* Priority: E More... Recurrent aspiration pneumonia (HCC) [J69.0] INVALID FOR* Priority: C More... SUMMARY INVALID FOR* Priority: A More... Hyponatremia [E87.1] INVALID FOR* Priority: F More... More... Hematemesis [K92.0] INVALID FOR* Priority: H More... On tube feeding diet [Z78.9] INVALID FOR* Priority: I More... Other instructions from your clinician: You have received botulinum toxin injections today. The skin around the site of injections should be monitored for a couple of days. If redness or swelling occur, the skin should be examined by a health child care development specialist to rule out infection. If you experience pain in the muscles injected over the next few days, you can take Tylenol to control the pain (unless contra-indicated). Please call our office at [phone] with any questions or concerns. Estefania Gonzalez MD Disposition: Return in 3 months (on 11/23/2017) for Repeat botox injections on 11/23/17 at 11 am. Follow-up and Disposition History Recorded Encounter Status:Closed by ESTEFANIA GONZALEZ MD on 08/18/17 BASIC METABOLIC Collected: 07/22/2017 Status: F Source: [place] ([place]) 3:15 PM [facility] [place] CODE TESTS RESULT OUT OF RANGE REFERENCE UNITS LAB L501.0100 74-106 mg/dL Normal GLU 82 Result Comment: Please note revised GLUCOSE reference range effective 2017. LAB L501.1000 7-18 mg/dL Normal BUN 16 LAB L501.1100 0.70-1.30 mg/dL Low CREAT,SERUM 0.38 Result Comment: The validity of the calculated GFR AND GFRAA in patients over 70 years has not been determined. Clinical correlation is essential. LAB L501.1110 >60 mL/min Normal EST GFR 279 Result Comment: Non- GFR Calc LAB L501.1115 >60 mL/min Normal EST GFR - AA 337 Result Comment: GFR Calc LAB L501.1300 10-20 RATIO High BUN/CRE 42.6 LAB L501.2200 8.5-10.1 mg/dL CA Normal 8.9 LAB L501.5300 136-145 mmol/L NA Normal 139 LAB L501.5600 3.5-5.1 mmol/L K Normal 4.2 LAB L501.5900 98-107 mmol/L CL Normal 105 LAB L501.6100 21.0-32.0 mmol/L Normal CO2 28.0 LAB L501.6200 5-15 Normal GAP 6 Performed By: #### L500.2500 #### [facility] [address] [place], [address] CBC W/DIFF, AUTOMATED Collected: 07/22/2017 Status: F Source: [place] 3:15 PM [facility] [place] TYPE CODE TESTS RESULT OUT OF RANGE REFERENCE UNITS LAB L100.1000 4.4-11.0 K/mm3 Low WBC 3.4 LAB L100.1200 4.6-6.2 M/mm3 Low RBC 3.93 LAB L100.1300 13.0-16.5 g/dl Low HGB 11.5 LAB L100.1400 40-54 % Low HCT 35.3 LAB L100.1500 80-94 fL Normal MCV 89.8 LAB L100.1600 27.0-32.0 pg Normal MCH 29.3 LAB L100.1700 32-36 g/gl Normal MCHC 32.6 LAB L100.1810 11.6-14.6 % High RDW CV 14.7 LAB L100.1820 35.1-43.9 fl High RDW SD 48.0 LAB L100.1900 150-450 K/mm3 Low PLT 106 LAB L100.2000 6.2-12.0 fl Normal MPV 10.7 LAB L100.2100 47-70 % Normal NEUT% 47.2 LAB L100.2200 19-41 % Normal LY% 38.8 LAB L100.2300 0-10 % High MONO% 11.1 LAB L100.2400 0-5 % Normal EO% 2.6 LAB L100.2500 0-1 % Normal BASO% 0.0 LAB L100.2550 0.0-0.9 % Normal IM GRAN % 0.300 Result Comment: IG% - Immature Granulocytes (promyelocytes, myelocytes and metamyelocytes) > 1% indicates that a LEFT SHIFT is Present. LAB L100.2620 2.0-7.7 X10 3/uL Low Absolute Neut 1.6 LAB L100.2720 0.83-4.51 X10 3/ul Normal Absolute Lymph 1.33 Performed By: #### L100.0100 #### [facility] [address] [place], [address] PT D/C SUMMARY (1) Observed: 05/31/2017 Status: F Source: [place] 2:36 PM [facility] [place] [facility] [address] [place] [address]. [address] [place], [place] [address] Fax REHABILITATION SERVICES DISCHARGE SUMMARY MR#: [id number] Acct: [id number] Name: KRISS MICHAEL Rep #: [id number] : 1980 37 From: Yuko Mckeon DPT Referring Dr.: Timmy Perkins MD Status: REG R Insurance: [employer] HP - PT D/C Summary It has been my pleasure to treat KRISS MICHAEL under orders from DR.JMILLE Shona for the diagnosis of CP for a total of 1 visit(s). Discharge Date: Please see the following information for a summary of their discharge status. - D/C Information If there are questions or concerns regarding this patient's physical therapy, please feel free to call me at [phone]. Thank you for the referral of this patient. Sincerely, Yuko Mckeon <Electronically signed by Yuko Mckeon DPT> 05/31/17 1436 CC: Timmy Perkins MD ELR Signed EMERGENCY DEPARTMENT Observed: 05/30/2017 Status: F Source: [place] SUMMARY 4:45 PM [facility] [place] [facility] Medical Records Department [address] [place] [address] Emergency Department Summary 05/30/17 1316 MR#: [id number] Acct: [id number] Name: KRISS MICHAEL Rep #: [id number] : 1980 37 From: Victor M Huff MD PCP: Timmy Perkins MD Status: DEP ER - ER Visit Summary Date of Service: 05/30/17 Chief Complaint: [] Seems congested coughing history of aspiration History of Present Illness: The patient is a 37 M [] history of cerebral palsy full care patient at home with family as needed home oxygen, per the family generally he does well but on occasion he develops aspiration pneumonia for the last few days he appears to have some labored respirations intermittently cough low-grade fever, He continued to labor to breathe despite all of the usual home remedies the family tried because of the prior history of aspiration sepsis pneumonia and the concern that he might deteriorate at home, he was brought in for evaluation he also gets agitated for nonspecific reasons and seems to have heavy breathing so he was given an Ativan tablet that also seemed to help he is tube fed he has a Mediport in he uses a diaper, his general health has otherwise been unremarkable he has been tolerating his tube feeds there is been no obvious gagging or aspiration on tube feeds at his baseline he holds his head to the left and his tongue hangs out he is currently doing that, at night his oxygen level set can drop to 91 and he is placed on oxygen supplemental, but for the most part his O2 sats are 95-96 on room air Physical Examination: [] Vital signs are unremarkable he is on 2 L of oxygen his pulse ox is 96% he is in no distress he is unable to basically provide any history the family is able to communicate him verbally and with gestures there is no laboring at all of any kind clinically he looks well except he is turning his head to the right and his tongue is sticking out of his mouth metastases baseline for him his oral cavity seems red the airways intact were without any fluid debris or particulate matter the lungs sound clear the heart tones are normal the abdomen is obese but soft nontender PEG tube is in place, he is at his neurologic baseline per the family he has edema to both lower and upper extremities Test Results: [] Emergency Department Course and Treatment: [] All of the above in his history debilitated condition evaluation pursued by his labs chest x-ray unremarkable he is resting company his vital signs appear unchanged pulse ox 91-92 I explained all the above to the family, they understand and agree with discharge home to continue his management at home Treatment Plan: [] Disposition: [] Impression: [] Respiratory distress with failure of outpatient therapy resolved, history of cerebral palsy aspiration pneumonia respiratory failure sepsis This note was generated with [employer] dictation software. It may contain incorrect words, spelling, and punctuation that were not noted in review of the chart prior to signing ED Disposition - Plan for ED Patient: Chief Complaint: Fever Referrals: Timmy Perkins MD [Primary Care Provider] - What to do if you have Problems For any increased pain, shortness of breath, bleeding, nausea or vomiting, chest pain, or any unexpected problems, contact your Primary Care Provider. Call [facility] ([phone]) or report to the closest Emergency Room. Call 911 if necessary. 05/30/17 0885 <Electronically signed by Victor M Huff MD> Date Victor M Huff MD Cosigner Signature (If Indicated): Date CC: Timmy Perkins MD DISCHARGE INSTRUCTION Observed: 05/30/2017 Status: F Source: [place] 3:32 PM [facility] [place] [facility] Medical Records Department [address] [place] [address] Discharge Instruction 05/30/17 1531 MR#: [id number] Acct: [id number] Name: KRISS MICHAEL Rep #: [id number] : 1980 37 From: Victor M Huff MD PCP: Timmy Perkins MD Status: REG ER ED Disposition - Plan for ED Patient: Chief Complaint: Fever Instructions: ED Upper Resp Infec No Abx Tx Referrals: Timmy Perkins MD [Primary Care Provider] - What to do if you have Problems For any increased pain, shortness of breath, bleeding, nausea or vomiting, chest pain, or any unexpected problems, contact your Primary Care Provider. Call [facility] ([phone]) or report to the closest Emergency Room. Call 911 if necessary. 05/30/17 1532 <Electronically signed by Victor M Huff MD> Date Victor M Huff MD Cosign Signature (If Indicated): Date CC: Timmy Perkins MD Observed: 05/30/2017 Status: F Source: [place] STREP A (THROAT 2:10 PM [facility] [place] REPOSITORY Order Date: 05/30/17 Has pt arrived? Y Strep A Rapid Rapid Strep A Screen NEGATIVE A Disk (Conf. Cult) Beta Hemolytic Strep NOT Group A : All NEGATIVE screens will be confirmed with a culture. ORGANISM 1: Streptococcus group B Performed By: #### M100.676 #### [facility] [address] [place], [address] URINALYSIS, COMPLETE Collected: 05/30/2017 Status: F Source: [place] 2:05 PM [facility] [place] Order Comment: Order Date: 05/30/17 Has pt arrived? Y How was Urine Obtained? CLEAN CATCH TYPE CODE TESTS RESULT OUT OF RANGE REFERENCE UNITS LAB L400.3000 Yellow COLOR Normal Yellow LAB L400.3050 Clear Normal CLARITY Clear LAB L400.3200 Normal mg/dl Normal GLUCOSE, UR Normal LAB L400.3300 Negative mg/dL Normal BILIRUBIN URINE Negative LAB L400.3400 Negative mg/dl Normal KETONE UR Negative LAB L400.3465 1.002-1.030 Normal SP.GR. DIPSTX 1.010 LAB L400.3550 5.0 - 8.0 pH UR Normal 8.0 LAB L400.3600 Negative mg/dl PROT Normal DIPSTX Negative LAB L400.3700 Normal mg/dl Normal UROBILI Normal LAB L400.3750 Negative Normal NITRITE UR Negative LAB L400.3780 Negative /ul Normal OCCULT BLOOD-UR Negative LAB L400.3800 Negative /ul LEUK Normal ESTERASE Negative LAB L400.4050 0-5 /hpf WBC 0 Normal SEEN LAB L400.4100 0-5 /hpf 0 Normal RBC-UA SEEN LAB L400.4150 0-5 /hpf SQUAM 0 Normal EPI SEEN LAB L400.4300 None Seen /hpf 0 Normal BACTERIA SEEN LAB L400.4350 <or=2+ /hpf 0 Normal MUCUS, URINE SEEN Performed By: #### L400.0001 #### [facility] [address] [place], [address] Observed: 05/30/2017 Status: F Source: [place] CULTURE, URINE 2:05 PM [facility] [place] Order Date: 05/30/17 Comments: A straight cath Has pt arrived? Y Urine Culture Culture exhibits no growth. Performed By: #### M100.0650 #### [facility] [address] [place], [address] CBC W/DIFF, AUTOMATED Collected: 05/30/2017 Status: F Source: [place] 1:48 PM [facility] [place] TYPE CODE TESTS RESULT OUT OF RANGE REFERENCE UNITS LAB L100.1000 4.4-11.0 K/mm3 Normal WBC 5.5 LAB L100.1200 4.6-6.2 M/mm3 Low RBC 3.83 LAB L100.1300 13.0-16.5 g/dl Low HGB 11.4 LAB L100.1400 40-54 % Low HCT 35.2 LAB L100.1500 80-94 fL Normal MCV 91.9 LAB L100.1600 27.0-32.0 pg Normal MCH 29.8 LAB L100.1700 32-36 g/gl Normal MCHC 32.4 LAB L100.1810 11.6-14.6 % Normal RDW CV 14.4 LAB L100.1820 35.1-43.9 fl High RDW SD 48.1 LAB L100.1900 150-450 K/mm3 Low PLT 112 LAB L100.2000 6.2-12.0 fl Normal MPV 10.2 LAB L100.2100 47-70 % Normal NEUT% 62.2 LAB L100.2200 19-41 % Normal LY% 26.7 LAB L100.2300 0-10 % Normal MONO% 9.1 LAB L100.2400 0-5 % Normal EO% 1.8 LAB L100.2500 0-1 % Normal BASO% 0.2 LAB L100.2550 0.0-0.9 % Normal IM GRAN % 0.000 Result Comment: IG% - Immature Granulocytes (promyelocytes, myelocytes and metamyelocytes) > 1% indicates that a LEFT SHIFT is Present. LAB L100.2620 2.0-7.7 X10 3/uL Normal Absolute Neut 3.4 LAB L100.2720 0.83-4.51 X10 3/ul Normal Absolute Lymph 1.47 Performed By: #### L100.0100 #### [facility] [address] [place], [address] BASIC METABOLIC Collected: 05/30/2017 Status: F Source: [place] (BMP) 1:48 PM [facility] [place] TYPE CODE TESTS RESULT OUT OF RANGE REFERENCE UNITS LAB L501.0100 74-106 mg/dL Normal GLU 95 Result Comment: Please note revised GLUCOSE reference range effective 2017. LAB L501.1000 7-18 mg/dL Normal BUN 14 LAB L501.1100 0.70-1.30 mg/dL Low CREAT,SERUM 0.52 Result Comment: The validity of the calculated GFR AND GFRAA in patients over 70 years has not been determined. Clinical correlation is essential. LAB L501.1110 >60 mL/min Normal EST GFR 193 Result Comment: Non- GFR Calc LAB L501.1115 >60 mL/min Normal EST GFR - AA 233 Result Comment: GFR Calc LAB L501.1255 ml/min Normal Estimated CRCL 140.22 LAB L501.1300 10-20 RATIO High BUN/CRE 27.0 LAB L501.2200 8.5-10 mg/dL .1 CA Normal 8.7 LAB L501.5300 136-14 mmol/L 5 NA Normal 143 LAB L501.5600 3.5-5. mmol/L 1 K Normal 4.0 LAB L501.5900 98-107 mmol/L CL Normal 107 LAB L501.6100 21.0-3 mmol/L 2.0 CO2 Normal 28.0 LAB L501.6200 5-15 GAP Normal 8 Performed By: #### L500.2500 #### [facility] [address] [place], [address] LACTIC ACID Collected: 05/30/2017 Status: F Source: [place] 1:48 PM [facility] [place] Order Comment: Yes/No query for Sepsis Lactate Rule Y TYPE CODE TESTS RESULT OUT OF RANGE REFERENCE UNITS LAB L503.6005 0.4-2.0 mmol/L Normal LACTIC ACID 1.1 Performed By: #### L503.6005 #### [facility] [address] [place], [address] CHEST 1 VIEW Observed: 05/30/2017 Status: F Source: [place] (PORTABLE) 1:16 PM [facility] [place] [facility] Imaging Services [address] [place] [id number] Chest 1 View (Portable) MR#: [id number] Acct: [id number] Name: KRISS MICHAEL Rep #: [id number] : 1980 M 37 From: Tony Bryan PCP: Timmy Perkins MD Status: REG ER Study: Chest 1 View (Portable) Date of Exam: 05/30/17 Exam# [id number] Ordering Dr: Victor M Huff MD STUDY: X-RAY CHEST REASON FOR EXAM: Male, 37 years old. Shortness of breath, dyspnea TECHNIQUE: Single AP portable view of the chest. COMPARISON: 04/07/2017. FINDINGS: Right Port-A-Cath in place with the tip of the lower SVC. Chronic elevated right hemidiaphragm. The lungs are clear and expanded. There is no demonstrated pleural abnormality. Normal size heart. Normal mediastinum and rachelle. Normal visualized pulmonary arteries. Normal visualized aortic arch and descending thoracic aorta. Normal visualized thoracic spine. Normal visualized ribs, clavicles, and shoulders. There is no demonstrated abnormality of the visualized soft tissue structures of the upper abdomen. RAD/Chest 1 View (Portable) IMPRESSION: No acute cardiopulmonary disease. Electronically Signed: Tony Bryan DO at 14:17 EDT , Service support , CC: MD J Luis Huff; Timmy Perkins MD Pattern Technician: Signed PROGRESS Observed: 05/13/2017 Status: COMPLETED Source: [place] 4:54 PM [facility] REPOSITORY HNO ID: [id number] Author: Regino Rivers Service: (none) Author Type: (none) Type: Progress Notes Filed: 05/13/2017 4:55 PM Note Text: Faxed Office note to PCP to fax number [phone] PROGRESS Observed: 05/11/2017 Status: COMPLETED Source: [place] 1:09 PM [facility] REPOSITORY HNO ID: [id number] Author: Sai Sterling MD Service: (none) Author Type: Resident Type: Progress Notes Filed: 05/11/2017 2:19 PM Note Text: BOTULINUM TOXIN THERAPY - Informed consent was signed on 08/03/12 The patient was accompanied by his parents and Morenita rhoades. Sai Sterling MD, resident physician performed the history, physical examination and some of the botox injections under my direct supervision. I examined the patient myself and discussed findings. Current complaints / history since last visit: The patient was last seen in the spasticity clinic for botulinum toxin injections on 02/02/17. The patient's mother reports less stiffness, improved positioning, and ease of with dressing and grooming. Also notes improvements with hand hygiene. Started to notice more extensor tone and pronation over the past two weeks. She reports stretching twice daily, and is not currently in any therapies. Was hospitalized in 01/2017 overnight with a fever and decreased pOx w/o a clear diagnosis. Again to ED in February and 04/26 for similar symptoms and right thigh spasms was given ativan and improved. BT therapy effective? Yes on stiffness, on range of motion, on hygiene and on comfort Duration of benefit: 2 1/2-3 months BT therapy well tolerated? Yes Spasm scale: occasional spasms Pain related to spasticity: No 0 on a scale of 0 to 10 per mother Nutritional concerns: Yes, dysphagia, predominantly receiving nutrition via G-tube, still on supplemental nutrition, max of 4 cans of Jevity/day, appetite- will eat seldom (pleasure feedings), weight stable, [id number] lbs Driving issues: N/A Safety concerns regarding living situations and safety at home: No, he lives with his parents. They live in a ranch home with a basement. There is an elevator. His parents are his primary care givers and he has about 60 hours of caregivers a week. Current wheelchair is four years old since 04/2014. He requires total assistance with ADLs and IADLs; this is provided by family and home care. Risk of falls: N/A, transfers with maximal assistance or via Juanita lift. Examination: Strength: Unable to assess formally. Bilateral external rotation at hips Spasticity: MAS: Right Left Shoulder abds 2 1+ Elbow flexors 2 2 Elbow extensors 1 0 Wrist flexors 2 2 B/l forearm pronation Finger flexors (thumb add) 2 1 B/l thumb adduction Knee extensors 2 2 Knee flexors 0 0 Hip adductors 0 0 Ankle plantarflexors 0 0 Contracture in thumb add, pronation, wrist flexion, knee flexion Modified Luis Scale 0 - No increase in tone 1 - Slight increase in tone (catch and release at end of ROM) 1+ - Slight increase in tone, manifested by a catch, followed by minimal resistance throughout remainder (less than half of ROM) 2 - Marked increase in tone through most of the ROM, but affected part(s) easily moved 3 - Considerable increase in tone; passive movement difficult 4 - Affected part(s) rigid in flexion or extension SPASMS observed: RUE: No LUE: No RLE: No LLE: No Timed 25 foot walk: N/A Assistance Required: wheelchair Gait is: N/A EDSS: 9.0 - Helpless bedbound patient - can communicate and eat A.I.: 9 - Restricted to wheelchair, dependent for transfers Informed consent was signed on 07/03/12 Procedure: Botulinum Toxin injections Pt ID verified with patient with 2 identifiers: Yes Procedure verified with patient's parents: Yes, botox shots Procedure confirmed with physician and work station support specialist: Yes Personnel involved in the procedure: Physician: Estefania Gonzalez MD and Sai Sterling MD, resident physician Executive Steward: Yue Huffman RN UNIVERSAL PROTOCOL / SAFETY CHECKLIST Procedure to be performed: Botox injections Sign in Communication: Completed Time Out: Team Confirms the Correct Patient, Correct Procedure, Correct Site and Site Marking, Correct Position (if applicable). Time: 1:37 PM Affirmation of Time Out: N/A Sign Out Discussion: Completed The patient was positioned sitting in his wheelchair. After skin preparation with alcohol swabs, a total dose of 600 units of Botox were injected as follows: Muscle Limb Dose EMG Comments FDP RUE 50 units Yes 1 site FCU RUE 50 units Yes 1 site FCR RUE 50 units Yes 1 site FPL RUE 25 units Yes 1 site Adductor pollicis RUE 25 units Yes 1 site Quadriceps RLE 100 units Yes 2 sites FDP LUE 50 units Yes 1 site FCU LUE 50 units Yes 1 site FCR LUE 50 units Yes 1 site FPL LUE 25 units Yes 1 site Adductor pollicis LUE 25 units Yes 1 site Quadriceps LLE 100 units Yes 2 sites Dilution: 100 units / 2 mL Lot #: [id number] (6 vials) Expiration date: November 2019 The injections were well tolerated. 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 Botulinum toxin injections were effective and well tolerated. We repeated botox injections today without immediate complications. We will repeat botox injections in 3 months, same muscles and total dose of 600 units. The patient is approaching end of battery life for his baclofen pump. On 04/08/17, he was noted to have 19 months of estimated battery life. We will have him schedule an ITB pump follow up with his botox injections in 6 months. At that time, I will place a referral to neurosurgery to being planning for his pump surgery. Plan: 1 - Repeat injections in 3 months, 600 units. 2 - We will schedule ITB pump follow up same day as botox injections in 6 months. 3 - Perform stretching exercises daily. 4 - Please fax a copy of the visit note to Timmy Perkins MD Time spent with patient: 50 mn. Estefania Gonzalez MD CNOV Observed: 05/11/2017 Status: COMPLETED Source: [place] 1:00 PM [facility] REPOSITORY Office Visit ([facility]) KRISS MICHAEL ([id number]) 1980 M Date Time Provider Department 05/11/17 1:00 PM ESTEFANIA GONZALEZ During your visit today, we recorded the following information about you: Estefania Gonzalez MD 05/11/2017 8:02 AM Signed You have received botulinum toxin injections today. The skin around the site of injections should be monitored for a couple of days. If redness or swelling occur, the skin should be examined by a health child care development specialist to rule out infection. If you experience pain in the muscles injected over the next few days, you can take Tylenol to control the pain (unless contra-indicated). Please call our office at [phone] with any questions or concerns. MD Sai Spicer MD, MD 05/11/2017 1:30 PM Addendum BOTULINUM TOXIN THERAPY - Informed consent was signed on 08/03/12 The patient was accompanied by his parents and Morenita rhoades. Sai Sterling MD, resident physician performed the history, physical examination and some of the botox injections under my direct supervision. I examined the patient myself and discussed findings. Current complaints / history since last visit: The patient was last seen in the spasticity clinic for botulinum toxin injections on 02/02/17. The patient's mother reports less stiffness, improved positioning, and ease of with dressing and grooming. Also notes improvements with hand hygiene. Started to notice more extensor tone and pronation over the past two weeks. She reports stretching twice daily, and is not currently in any therapies. Was hospitalized in 01/2017 overnight with a fever and decreased pOx w/o a clear diagnosis. Again to ED in February and 04/26 for similar symptoms and right thigh spasms was given ativan and improved. BT therapy effective? Yes on stiffness, on range of motion, on hygiene and on comfort Duration of benefit: 2 1/2-3 months BT therapy well tolerated? Yes Spasm scale: occasional spasms Pain related to spasticity: No 0 on a scale of 0 to 10 per mother Nutritional concerns: Yes, dysphagia, predominantly receiving nutrition via G-tube, still on supplemental nutrition, max of 4 cans of Jevity/day, appetite- will eat seldom (pleasure feedings), weight stable, [id number] lbs Driving issues: N/A Safety concerns regarding living situations and safety at home: No, he lives with his parents. They live in a ranch home with a basement. There is an elevator. His parents are his primary care givers and he has about 60 hours of caregivers a week. Current wheelchair is four years old since 04/2014. He requires total assistance with ADLs and IADLs; this is provided by family and home care. Risk of falls: N/A, transfers with maximal assistance or via Juanita lift. Examination: Strength: Unable to assess formally. Bilateral external rotation at hips Spasticity: MAS: Right Left Shoulder abds 2 1+ Elbow flexors 2 2 Elbow extensors 1 0 Wrist flexors 2 2 B/l forearm pronation Finger flexors (thumb add) 2 1 B/l thumb adduction Knee extensors 2 2 Knee flexors 0 0 Hip adductors 0 0 Ankle plantarflexors 0 0 Contracture in thumb add, pronation, wrist flexion, knee flexion Modified Luis Scale 0 - No increase in tone 1 - Slight increase in tone (catch and release at end of ROM) 1+ - Slight increase in tone, manifested by a catch, followed by minimal resistance throughout remainder (less than half of ROM) 2 - Marked increase in tone through most of the ROM, but affected part(s) easily moved 3 - Considerable increase in tone; passive movement difficult 4 - Affected part(s) rigid in flexion or extension SPASMS observed: RUE: No LUE: No RLE: No LLE: No Timed 25 foot walk: N/A Assistance Required: wheelchair Gait is: N/A EDSS: 9.0 - Helpless bedbound patient - can communicate and eat A.I.: 9 - Restricted to wheelchair, dependent for transfers Informed consent was signed on 07/03/12 Procedure: Botulinum Toxin injections Pt ID verified with patient with 2 identifiers: Yes Procedure verified with patient's parents: Yes, botox shots Procedure confirmed with physician and work station support specialist: Yes Personnel involved in the procedure: Physician: Estefania Gonzalez MD and Sai Sterling MD, resident physician Executive Steward: Yue Huffman RN UNIVERSAL PROTOCOL / SAFETY CHECKLIST Procedure to be performed: Botox injections Sign in Communication: Completed Time Out: Team Confirms the Correct Patient, Correct Procedure, Correct Site and Site Marking, Correct Position (if applicable). Time: 1:37 PM Affirmation of Time Out: N/A Sign Out Discussion: Completed The patient was positioned sitting in his wheelchair. After skin preparation with alcohol swabs, a total dose of 600 units of Botox were injected as follows: Muscle Limb Dose EMG Comments FDP RUE 50 units Yes 1 site FCU RUE 50 units Yes 1 site FCR RUE 50 units Yes 1 site FPL RUE 25 units Yes 1 site Adductor pollicis RUE 25 units Yes 1 site Quadriceps RLE 100 units Yes 2 sites FDP LUE 50 units Yes 1 site FCU LUE 50 units Yes 1 site FCR LUE 50 units Yes 1 site FPL LUE 25 units Yes 1 site Adductor pollicis LUE 25 units Yes 1 site Quadriceps LLE 100 units Yes 2 sites Dilution: 100 units / 2 mL Lot #: [id number] (6 vials) Expiration date: November 2019 The injections were well tolerated. 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 Botulinum toxin injections were effective and well tolerated. We repeated botox injections today without immediate complications. We will repeat botox injections in 3 months, same muscles and total dose of 600 units. The patient is approaching end of battery life for his baclofen pump. On 04/08/17, he was noted to have 19 months of estimated battery life. We will have him schedule an ITB pump follow up with his botox injections in 6 months. At that time, I will place a referral to neurosurgery to being planning for his pump surgery. Plan: 1 - Repeat injections in 3 months, 600 units. 2 - We will schedule ITB pump follow up same day as botox injections in 6 months. 3 - Perform stretching exercises daily. 4 - Please fax a copy of the visit note to Timmy Perkins MD Time spent with patient: 50 mn. MD Regino Spicer Sec 05/13/2017 4:55 PM Signed Faxed Office note to PCP to fax number [phone] Referring Provider: ESTEFANIA GONZALEZ [[id number]] Allergies As of Date: 05/11/2017 Noted Allergy Reaction CODEINE 06/22/2005 14 - Other: See Comments Comments: hyperactivity per mom FLAGYL (METRONIDAZOLE HCL) 05/08/2014 2 - Rash MORPHINE 06/22/2005 14 - Other: See Comments Comments: causes hyperactivity per mom PROPULSID 02/08/2012 2 - Rash Date Reviewed: 05/11/2017 Reviewed by: Estefania Gonzalez - Fully Assessed Reason for Visit: Spasticity [487] Botulinum Toxin Injections [Other] Primary Visit Diagnosis:Spastic quadriparesis (HCC) [G82.50] Other Visit Diagnosis:Cerebral palsy, unspecified type ([facility]) [G80.9] Prescriptions as of 05/11/2017 Sig: LORAZEPAM 1 MG TABLET Take 1 mg by mouth every 8 ho* BACLOFEN 20 MG TABLET 1 tablet three times daily as* ONABOTULINUMTOXINA 100 UNIT S* Inject 800 Units intramuscula* SENNOSIDES 8.8 MG/5 ML SYRUP Take 5 mL by mouth once daily* LACTULOSE 10 GRAM/15 ML ORAL * Take 7.5 g by mouth once keshav* POTASSIUM CHLORIDE 20 MEQ/15 * Take 20 mEq by mouth once jenni* BACLOFEN 2,000 MCG/ML INTRATH* [employer] Refill Kit # [id number], * MICONAZOLE NITRATE 2 % TOPICA* Apply 1 application to affect* Patient taking differently: Apply 1 application to affect* POLYETHYLENE GLYCOL 3350 17 G* 1 Packet once daily. COMPOUNDED PRESCRIPTION Jevity 1.2: 40 ml/hr for 24 h* Patient taking differently: Jevity 1.0: 40 ml/hr for 24 h* PANTOPRAZOLE ORAL LIQUID 40 M* 20 mg by PEG route twice keshav* LACTOBACILL.ACIDOPHILUS (BULK* 1 capsule by PEG route once d* CETIRIZINE 10 MG TABLET Take 1 tablet by mouth once d* Patient taking differently: 10 mg by PEG route once daily. MAGNESIUM HYDROXIDE 400 MG/5 * Take 30 mL by mouth once keshav* Patient taking differently: 30 mL by PEG route once daily* PHENOBARBITAL 20 MG/5 ML (4 M* Give 15 ml twice a day. Patient taking differently: 60 mg by PEG route twice keshav* Problem List As Of Date 05/11/2017 Noted Resolved ASA CLASS III [1003] INVALID FOR* Infantile cerebral palsy (HCC) [G80.9] INVALID FOR* Priority: L More... Septic shock [A41.9, R65.21] INVALID FOR*03/09/2012 Priority: B More... Acute respiratory failure [J96.00] INVALID FOR*03/09/2012 Priority: E More... SUMMARY [V999.95] INVALID FOR*04/11/2011 Priority: A Transaminitis [R74.0] INVALID FOR*03/09/2012 Priority: M More... Pancreatitis [K85.90] INVALID FOR*03/09/2012 Priority: M More... Dilatation of colon [K59.39] INVALID FOR*03/09/2012 Priority: L More... Upper GI bleed [K92.2] INVALID FOR*03/09/2012 Priority: C More... Renal failure, acute [N17.9] INVALID FOR*03/09/2012 Priority: A More... Aspiration of gastric contents [T17.910A] INVALID FOR*03/09/2012 Priority: D More... More... Hypernatremia [E87.0] INVALID FOR*03/09/2012 Priority: F More... Congenital quadriplegia [G80.8] INVALID FOR* Hypoxia [R09.02] INVALID FOR*03/11/2012 More... 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 Withdrawal syndrome [F19.939] INVALID FOR*12/12/2012 More... Constipation [K59.00] INVALID FOR*03/11/2012 More... Swallowing impairment [R13.10] INVALID FOR* More... Sepsis [A41.9] INVALID FOR*12/17/2012 Priority: B More... Gastritis, acute [K29.00] INVALID FOR* Priority: C More... Acute respiratory failure with hypoxia [J96.01] INVALID FOR*12/17/2012 Priority: A More... C. difficile colitis [A04.72] INVALID FOR* Priority: A More... SUMMARY [V999.95] INVALID FOR* Priority: Mild More... Transaminitis [R74.0] INVALID FOR* Sepsis [A41.9] INVALID FOR* Priority: B More... Hyperthermia [R50.9] INVALID FOR* Priority: A More... Seizures (HCC) [R56.9] INVALID FOR* Priority: E More... Constipation [K59.00] INVALID FOR* Priority: C More... Vomiting [R11.10] INVALID FOR* Priority: B More... Skin rash [R21] INVALID FOR* Priority: D More... Post-op pain [G89.18] INVALID FOR* More... DVT prophylaxis [AFH8595] INVALID FOR* Priority: J More... Clostridium difficile infection [B96.89] INVALID FOR* Priority: B More... Chronic constipation [K59.09] INVALID FOR* Priority: D More... Congenital cerebral palsy (HCC) [G80.9] INVALID FOR* Priority: E More... Recurrent aspiration pneumonia (HCC) [J69.0] INVALID FOR* Priority: C More... SUMMARY INVALID FOR* Priority: A More... Hyponatremia [E87.1] INVALID FOR* Priority: F More... More... Hematemesis [K92.0] INVALID FOR* Priority: H More... On tube feeding diet [Z78.9] INVALID FOR* Priority: I More... Other instructions from your clinician: You have received botulinum toxin injections today. The skin around the site of injections should be monitored for a couple of days. If redness or swelling occur, the skin should be examined by a health child care development specialist to rule out infection. If you experience pain in the muscles injected over the next few days, you can take Tylenol to control the pain (unless contra-indicated). Please call our office at [phone] with any questions or concerns. Estefania Gonzalez MD Disposition: Return in about 3 months (around 08/11/2017) for Repeat botox injections in 3 months. Follow-up and Disposition History Recorded Encounter Status:Closed by ESTEFANIA GONZALEZ MD on 05/11/17 CNCO Observed: 05/06/2017 Status: COMPLETED Source: [place] 12:00 AM [facility] REPOSITORY Letter Text ESTEFANIA GONZALEZ MD [facility]/U [address] [address] May 06, 2017 RE: Kriss Michael [address] [place] [address] [place] [address] [facility] #: [id number] Case Reference #: N/A To Whom It May Concern: Mr. Kriss Michael is under my care at the [facility] for treatment of severe spasticity in bilateral arms and legs. He was initially evaluated in July 2012 for stiffness in his arms and legs that caused pain and difficulty with his care and hygiene. He had tried oral baclofen in the past with limited efficacy. He had an intrathecal baclofen pump implanted with improvement in the spasticity of the legs. He had started botox therapy prior to transferring his care to our clinic and noted that there was improvement with spasticity in both upper and lower extremities. Initial botox injections were performed on 10/06/2012, targeting bilateral finger flexors, wrist flexors and knee extensors with good results. Last injections were performed on 02/02/2017, 600 units again to bilateral finger flexors, wrist flexors and knee extensors with less stiffness and discomfort and ease of care with dressing and hygiene. Plan is to repeat botox injections on 05/11/17, targeting the same muscles with 600 units of botox. Based on the efficacy of the previous botox injections over the last 5 years and the fact that he tried and failed oral antispasticity medications, I would recommend that he continue with botox therapy. If I can be of any further assistance in this manner, please do not hesitate to contact me. Sincerely, Estefania Gonzalez MD CBC-COMPLETE BLOOD CNT Collected: 05/04/2017 Status: F Source: [place] 12:05 PM [facility] [place] TYPE CODE TESTS RESULT OUT OF RANGE REFERENCE UNITS LAB L100.1000 4.4-11.0 K/mm3 Low WBC 3.8 LAB L100.1200 4.6-6.2 M/mm3 Low RBC 3.83 LAB L100.1300 13.0-16.5 g/dl Low HGB 11.3 LAB L100.1400 40-54 % Low HCT 35.6 LAB L100.1500 80-94 fL Normal MCV 93.0 LAB L100.1600 27.0-32.0 pg Normal MCH 29.5 LAB L100.1700 32-36 g/gl Low MCHC 31.7 LAB L100.1810 11.6-14.6 % High RDW CV 14.9 LAB L100.1820 35.1-43.9 fl High RDW SD 50.4 LAB L100.1900 150-450 K/mm3 Low PLT 112 LAB L100.2000 6.2-12.0 fl Normal MPV 10.5 Performed By: #### L100.0500 #### [facility] [address] [place], [address] BASIC METABOLIC Collected: 05/04/2017 Status: F Source: [place] ([place]) 12:05 PM [facility] [place] TYPE CODE TESTS RESULT OUT OF RANGE REFERENCE UNITS LAB L501.0100 74-106 mg/dL Normal GLU 106 Result Comment: Fasting Glucose result from 100 to 125 mg/dL suggests IMPAIRED HOMEOSTASIS per A.D.A. criteria. Please note revised GLUCOSE reference range effective 2017. LAB L501.1000 7-18 mg/dL High BUN 24 LAB L501.1100 0.70-1.30 mg/dL Low CREAT,SERUM 0.33 Result Comment: The validity of the calculated GFR AND GFRAA in patients over 70 years has not been determined. Clinical correlation is essential. LAB L501.1110 >60 mL/min Normal EST GFR 323 Result Comment: Non- GFR Calc LAB L501.1115 >60 mL/min Normal EST GFR - AA 391 Result Comment: GFR Calc LAB L501.1300 10-20 RATIO High BUN/CRE 72.5 LAB L501.2200 8.5-10.1 mg/dL CA Normal 8.5 LAB L501.5300 136-145 mmol/L NA Normal 141 LAB L501.5600 3.5-5.1 mmol/L K Normal 3.8 LAB L501.5900 98-107 mmol/L CL Normal 106 LAB L501.6100 21.0-32.0 mmol/L Normal CO2 28.0 LAB L501.6200 5-15 Normal GAP 7 Performed By: #### L500.2500 #### [facility] [address] [place], [address] INITAL EVALUATION (1) Observed: 04/22/2017 Status: F Source: [place] - PT 2:42 PM [facility] [place] [facility] [address] [place] [address]. [address] [place], [place] [address] Fax REHABILITATION SERVICES INITIAL EVALUATION MR#: [id number] Acct: [id number] Name: KRISS MICHAEL Rep #: [id number] : 1980 37 From: Yuko Mckeon DPT Referring Dr.: Timmy Perkins MD Status: REG R Insurance: [employer] MEDICAID Patient's Visit Information KRISS MICHAEL is a 37 year old M referred to Physical Therapy by Timmy GARCIA with a diagnosis of CP. Date of Evaluation: 04/22/17 Physical Therapist: Yuko Mckeon - Visit Plan Frequency: 1x/Week - Subjective Subjective: Wheel Chair evaluation current chair 2010-Frank. Diagnosis of CP- traumatic with major oxygen deprivation, well controlled seizure disorder- medically: baclofen pump, g-tube, colostomy, port. 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 Last 10 years he has grown a lot and outgrown the current chair. Tendency to aspirate. Uses a tray multiple times a day. Feet swell during the day- wants foot hangers that can be elevated and put back down. Leans to the right. Tilt in space w/c currently with an IV steel hanger. Does have anti-tip. Is unable to navigate his own chair. No stairs that he needs to use with ramps into the stairs. Does have elevator as needed. Uses juanita lifts (full dependent transfers) for ceiling tracts all over the house. In his chair most of the day- when not in the chair is in the hospital bed- can be in reclyner but is rarely there. Mother is caregiver with aids daily (5-10 hours a day). Does not currently have AFO's and it is not currently an issue so they plan not to get them- has Botox in both UE and LE. Family has 2 accessible vans- power lifts. Has a stander that he has outgrown. He was standing but is no longer standing. No pain. - Objective Patient is w/c bound- it is his primary mode of transportation. Sitting posture is poor and he is dependent on others for balance. He leans to the right and his head is also leaned to the right. He has no active movement of his trunk or lower extremity. Hypertonicity in bilateral LE. Ankle ROM: DF: neutral PF: 15 degrees Knee: extn- 10 degrees Flexion: 45 degrees Hip: 90 degrees of flexion Add: to neutral, Abd: 30 degrees - Rehabilitation Potential Physical Therapy Diagnosis: Patient presents with hypmobility- he has decreased ROM, strength and functional mobility- he is appropriate for w/c for primary mode of transportation - Anticipated Interventions Assistive Devices: Wheelchair Thank you for the opportunity to evaluate your patient. For Medicare and Medicare HMO plans, please review the plan of care and approve it. It will need to be FAXED BACK to us at [phone] for Medicare purposes. Please let me know if there are questions or concerns regarding this plan of care. Physician Signature: Date: <Electronically signed by Yuko Mckeon DPT> 04/22/17 1442 CC: Timmy Perkins MD ELR Signed For Medicare only, by signing this I certify the plan of care. Physicians Signature Date 12 LEAD ELECTROCARDIOGRAM Observed: 04/09/2017 Status: F Source: [place] 10:35 AM [facility] [place] [facility] Cardiovascular Services [address] [place] [address] 12 Lead EKG 04/07/17 2311 MR#: [id number] Acct: [id number] Name: KRISS MICHAEL Rep #: [id number] : 1980 37 From: Dominic Pichardo MD Attending Dr: Status: DEP ER Ordering Dr: Trevor Rae MD Date: 04/07/17 Location: ED Sex: M C Admitted: Test Reason : Blood Pressure : / mmHG Vent. Rate : 095 BPM Atrial Rate : 095 BPM P-R Int : 164 ms QRS Dur : 098 ms QT Int : 370 ms P-R-T Axes : 050 -16 -07 degrees QTc Int : 464 ms Sinus rhythm Low voltage QRS (limb leads) T wave abnormality, consider anterolateral ischemia Prolonged QT Abnormal ECG Confirmed by ENRIKE VARGAS, DOMINIC ([id number]), photo editor MICHELLE PERKINS ([id number]) on 04/09/2017 10:35:20 AM Referred By: KYRA Confirmed By:DOMINIC PICHARDO MD 04/09/17 1035 Date Dominic Pichardo MD CC: Timmy Perkins MD; Trevor Rae MD Signed DISCHARGE INSTRUCTION Observed: 04/08/2017 Status: F Source: [place] 12:29 AM [facility] Medical Records Department [address] [place] [address] Discharge Instruction 04/08/178 MR#: [id number] Acct: [id number] Name: ROJELIOKimGERSONPARESH Rep #: [id number] : 1980 37 From: Trevor Rae MD PCP: Timmy Perkins MD Status: REG ER ED Disposition - Plan for ED Patient: Chief Complaint: General Illness Instructions: ED Nausea Vomiting Referrals: Timmy Perkins MD [Primary Care Provider] - What to do if you have Problems For any increased pain, shortness of breath, bleeding, nausea or vomiting, chest pain, or any unexpected problems, contact your Primary Care Provider. Call [facility] Registry ([phone]) or report to the closest Emergency Room. Call 911 if necessary. 04/08/1728 <Electronically signed by Trevor Rae MD> Date Trevor Rae MD Cosigner Signature (If Indicated): Date CC: Timmy Perkins MD EMERGENCY DEPARTMENT Observed: 04/08/2017 Status: F Source: [place] SUMMARY 12:28 AM [facility] Medical Records Department [address] [place] [address] Emergency Department Summary 04/08/17 002 MR#: [id number] Acct: [id number] Name: KRISS MICHAEL Rep #: [id number] : 1980 37 From: Trevor Rae MD PCP: Perkins MD,Timmy Status: REG ER - ER Visit Summary Date of Service: 04/08/17 Chief Complaint: Fast heart rate and low oxygen saturation History of Present Illness: The patient is a 37 M who presents with low oxygen saturations and fast heart rate. The patient does have a history of cerebral palsy and is nonverbal at baseline. Today they noticed that his oxygen went down to 89% on room air when normally he maintained sats of 97-98%. They do use oxygen at home as needed. He was placed on nasal cannula and his oxygen saturation improved. He was also slightly tachycardic with a heart rate 115 and had nausea with a few episodes of small emesis which mother reports were only about 10 cc. His temperature is been normal. He has been slightly more agitated today which is common when he is not feeling well. He has also had some congestion. He is concerned about possible pneumonia or aspiration. He does have a history of aspiration. Physical Examination: Initial heart rate 103 respiratory rate 17 pulse ox 95% on 3 L afebrile No distress Moist mucous membranes Heart regular rhythm slightly tachycardic Lungs are clear I do not appreciate rales rhonchi or wheezes Abdomen soft nondistended Patient is alert but nonverbal Spasticity noted Test Results: EKG shows sinus rhythm at a rate of 95 with some lateral T-wave inversions similar to prior. His chest x-ray is normal no focal infiltrate. Laboratory studies notable for anemia, thrombocytopenia, slight elevation of LFTs which appears similar to prior labs. His lipase is minimally elevated at 482. Lactic acid is normal. Influenza is negative. Emergency Department Course and Treatment: Patient was given a DuoNeb aerosol here. On reevaluation he is resting comfortably. He is maintaining normal oxygen saturations on nasal cannula. His heart rate is normal at 90 and he has maintained stable blood pressure with normal respiratory rate. I discussed observation versus close monitoring at home and outpatient follow-up given his remarkable workup here. Although he was hypoxic on room air he does use oxygen as needed at home and has no evidence of pneumonia and influenza swab was also negative. Family notes that they only live a couple of blocks away and have home health aides and home health nurses and actually have a home health nurse visit scheduled for tomorrow. They have oxygen at home. Mother stated she believed the patient will be more comfortable at home and prefers to take the patient home. They do understand return for new or worsening symptoms and were instructed on specific signs and symptoms to monitor for. Patient discharged. Treatment Plan: [] Disposition: Discharge Impression: Hypoxic respiratory failure Cerebral palsy Sinus tachycardia resolved This note was generated with [employer] dictation software. It may contain incorrect words, spelling, and punctuation that were not noted in review of the chart prior to signing ED Disposition - Plan for ED Patient: Chief Complaint: General Illness Referrals: Timmy Perkins MD [Primary Care Provider] - What to do if you have Problems For any increased pain, shortness of breath, bleeding, nausea or vomiting, chest pain, or any unexpected problems, contact your Primary Care Provider. Call [facility] ([phone]) or report to the closest Emergency Room. Call 911 if necessary. 04/08/17 0028 <Electronically signed by Trevor Rae MD> Date Trevor Rae MD Cosigner Signature (If Indicated): Date CC: Timmy Perkins MD URINALYSIS, COMPLETE Collected: 04/07/2017 Status: F Source: [place] 11:45 PM [facility] [place] Order Comment: How was Urine Obtained? CATHETER SPECIMEN TYPE CODE TESTS RESULT OUT OF RANGE REFERENCE UNITS LAB L400.3000 Yellow COLOR Normal Straw LAB L400.3050 Clear Normal CLARITY Clear LAB L400.3200 Normal mg/dl Normal GLUCOSE, UR Normal LAB L400.3300 Negative mg/dL Normal BILIRUBIN URINE Negative LAB L400.3400 Negative mg/dl Normal KETONE UR Negative LAB L400.3465 1.002-1.030 Normal SP.GR. DIPSTX 1.010 LAB L400.3550 5.0 - 8.0 pH UR Normal 8.0 LAB L400.3600 Negative mg/dl PROT Normal DIPSTX Negative LAB L400.3700 Normal mg/dl Normal UROBILI Normal LAB L400.3750 Negative Normal NITRITE UR Negative LAB L400.3780 Negative /ul Normal OCCULT BLOOD-UR Negative LAB L400.3800 Negative /ul LEUK Normal ESTERASE Negative LAB L400.4050 0-5 /hpf WBC 0 Normal SEEN LAB L400.4100 0-5 /hpf 0 Normal RBC-UA SEEN LAB L400.4150 0-5 /hpf SQUAM 0 Normal EPI SEEN LAB L400.4300 None Seen /hpf 0 Normal BACTERIA SEEN LAB L400.4350 <or=2+ /hpf 0 Normal MUCUS, URINE SEEN Performed By: #### L400.0001 #### [facility] [address] [place], [address] Observed: 04/07/2017 Status: F Source: [place] CULTURE, BLOOD (WB) 11:35 PM [facility] [place] BC No growth in 5 days. Performed By: #### M200.1000 #### [facility] [address] [place], [address] CBC W/DIFF, AUTOMATED Collected: 04/07/2017 Status: F Source: [place] 11:25 PM [facility] [place] TYPE CODE TESTS RESULT OUT OF RANGE REFERENCE UNITS LAB L100.1000 4.4-11.0 K/mm3 Normal WBC 5.2 LAB L100.1200 4.6-6.2 M/mm3 Low RBC 3.79 LAB L100.1300 13.0-16.5 g/dl Low HGB 11.5 LAB L100.1400 40-54 % Low HCT 34.7 LAB L100.1500 80-94 fL Normal MCV 91.6 LAB L100.1600 27.0-32.0 pg Normal MCH 30.3 LAB L100.1700 32-36 g/gl Normal MCHC 33.1 LAB L100.1810 11.6-14.6 % High RDW CV 14.9 LAB L100.1820 35.1-43.9 fl High RDW SD 49.0 LAB L100.1900 150-450 K/mm3 Low PLT 92 LAB L100.2000 6.2-12.0 fl Normal MPV 11.0 LAB L100.2100 47-70 % Normal NEUT% 51.2 LAB L100.2200 19-41 % Normal LY% 34.4 LAB L100.2300 0-10 % Normal MONO% 9.8 LAB L100.2400 0-5 % Normal EO% 3.8 LAB L100.2500 0-1 % Normal BASO% 0.4 LAB L100.2550 0.0-0.9 % Normal IM GRAN % 0.400 Result Comment: IG% - Immature Granulocytes (promyelocytes, myelocytes and metamyelocytes) > 1% indicates that a LEFT SHIFT is Present. LAB L100.2620 2.0-7.7 X10 3/uL Normal Absolute Neut 2.7 LAB L100.2720 0.83-4.51 X10 3/ul Normal Absolute Lymph 1.79 Performed By: #### L100.0100 #### [facility] [address] [place], [place], [address] COMPREHENSIVE METABOLIC Collected: 04/07/2017 Status: F [facility] PM [facility] [place] TYPE CODE TESTS RESULT OUT OF RANGE REFERENCE UNITS LAB L501.0100 74-106 mg/dL Normal GLU 75 Result Comment: Please note revised GLUCOSE reference range effective 2017. LAB L501.1000 7-18 mg/dL Normal BUN 17 LAB L501.1100 0.70-1.30 mg/dL Low CREAT,SERUM 0.43 Result Comment: The validity of the calculated GFR AND GFRAA in patients over 70 years has not been determined. Clinical correlation is essential. LAB L501.1110 >60 mL/min Normal EST GFR 238 Result Comment: Non- GFR Calc LAB L501.1115 >60 mL/min Normal EST GFR - AA 288 Result Comment: GFR Calc LAB L501.1255 ml/min Normal Estimated CRCL 169.57 LAB L501.1300 10-20 RATIO High BUN/CRE 39.4 LAB L501.1500 6.4-8. g/dL High 2 T PROT 8.9 LAB L501.1800 3.2-5. g/dL 0 ALB Normal 3.4 LAB L501.1950 2.2-4. g/dL High 2 GLOB 5.5 LAB L501.2000 0.9-2. RATIO Low 4 A/G 0.6 LAB L501.2200 8.5-10 mg/dL .1 CA Normal 8.8 LAB L501.4100 15-37 U/L High AST 55 LAB L501.4305 45-117 U/L High ALK P 220 LAB L501.4405 16-61 U/L High ALT 73 Result Comment: Please note revised ALT reference range effective 2017. LAB L501.4600 0.20-1.00 mg/dL Normal T BILI 0.20 LAB L501.5300 136-145 mmol/L Normal NA 136 LAB L501.5600 3.5-5.1 mmol/L Normal K 4.5 LAB L501.5900 98-107 mmol/L Normal CL 102 LAB L501.6100 21.0-32.0 mmol/L Normal CO2 29.0 LAB L501.6200 5-15 Normal GAP 5 Performed By: #### L500.4050, L501.2450 #### [facility] [address], [address] LIPASE Collected: 04/07/2017 Status: F Source: [place] 11:25 PM [facility] [place] TYPE CODE TESTS RESULT OUT OF REFERENCE UNITS RANGE LAB L501.2450 73-393 U/L High LIPASE 482 Performed By: #### L500.4050, L501.2450 #### [facility] [address] [place], [address] LACTIC ACID Collected: 04/07/2017 Status: F Source: [place] 11:25 PM [facility] [place] Order Comment: Yes/No query for Sepsis Lactate Rule Y TYPE CODE TESTS RESULT OUT OF RANGE REFERENCE UNITS LAB L503.6005 0.4-2.0 mmol/L Normal LACTIC ACID 1.0 Performed By: #### L503.6005 #### [facility] [address] [place], [address] Observed: 04/07/2017 Status: F Source: [place] INFLUENZA A+B (RAPID 11:15 PM [facility] [place] REPOSITORY FLU A/B Rapid Negative test results should be confirmed by culture. Order Rapid Viral Culture for Influenzae A+B ([id number]) if clinically indicated. Influenza Ag, Direct Presumptive NEGATIVE for Influenza A/B Antigen (See Note) Performed By: #### M101.0101 #### [facility] [address] [place], [address] CHEST 1 VIEW Observed: 04/07/2017 Status: F Source: [place] (PORTABLE) 10:56 PM [facility] REPOSITORY [facility] Imaging Services [address] [place] [address] Chest 1 View (Portable) MR#: [id number] Acct: [id number] Name: KRISS MICHAEL Rep #: [id number] : 1980 M 37 From: Edis Dhaliwal MD PCP: Timmy Perkins MD Status: PRE ER Study: Chest 1 View (Portable) Date of Exam: 04/07/17 Exam# [id number] Ordering Dr: Trevor Rae MD STUDY: X-RAY CHEST REASON FOR EXAM: Male, 37 years old. Cough and shortness of breath. TECHNIQUE: Single AP portable view of the chest. COMPARISON: 02/19/2017. FINDINGS: There is a right-sided Port-A-Cath in stable position. There are hypoventilatory changes in both lung bases with slight increased markings. No new infiltrate is seen. There is no demonstrated pleural abnormality. There is borderline cardiomegaly. Normal mediastinum and rachelle. Normal visualized pulmonary arteries. The aorta is not visualized. The bony structures are unchanged. There is no demonstrated abnormality of the visualized soft tissue structures of the upper abdomen. RAD/Chest 1 View (Portable) IMPRESSION: Hypoventilatory changes. No new infiltrate is seen. Electronically Signed: Edis Dhaliwal MD at 23:26 EST Tel , Service support , CC: Timmy Perkins MD; Trevor Rae MD Pattern Technician: Signed ALLERGIES ALLERGIES DATE TYPE / CODE NAME / CODE REACTION SEVERITY SOURCE 02/05/20 Drug cisapride Rash Unknown [place] 18 Allergy/717981566 monohydrate/F0000 [facility] (SNOMED CT) [address]26(RXNORM) Hospital Repository 02/05/20 Drug morphine/M0223408 hallucinations Unknown [place] 18 Allergy/329993021 45(RXNORM) [facility] (SNOMED CT) Hospital Repository 02/05/20 Drug codeine/G56133793 hallucinations Unknown [place] 18 Allergy/445396378 0(RXNORM) [facility] (SNOMED CT) Hospital Repository 02/05/20 Drug metronidazole/F00 Rash Unknown [place] 18 Allergy/862449626 6369527(RXNORM) [facility] (SNOMED CT) Hospital Repository 02/05/20 Miscellaneous dust Other Unknown [place] 18 Allergy/093549181 [facility] (SNOMED CT) Hospital Repository 05/31/19 Drug vancomycin/M31633 renal failure Unknown [place] 18 Allergy/210550833 4866(RXNORM) [facility] (SNOMED CT) Hospital Repository 05/09/19 DRUG METRONIDAZOLE HCL RASH [place] 15 INGREDI/506683731 [facility] (SNOMED CT) [place] Repository 02/08/20 DRUG/831714786(SN PROPULSID RASH [place] [address]) [facility] [place] Repository 06/23/19 DRUG CODEINE OTHER: SEE [facility] 06 INGREDI/762587788 [facility] (SNOMED CT) [place] Repository 06/23/19 DRUG MORPHINE OTHER: SEE [facility] 06 INGREDI/123987511 [facility] (SNOMED CT) [place] Repository ENCOUNTERS ENCOUNTERS ADMIT/DISCHARGE ACCOUNT ADMITTING ENCOUNTER LOCATION SOURCE NUMBER CLASS 03/14/2018 [id number] [facility] ing:LABSPEC Repository 03/07/2018/03/08/19 [id number] Ambulatory [address] [place] Repository 03/07/2018/03/11/[id number] Repository 03/02/2018/03/02/[id number] Repository 03/02/2018/03/03/19 [id number] Ambulatory [address] Repository 02/11/2018 [id number] [facility] ing:LABSPEC Repository 02/04/2018/02/09/20 [id number] [place], Inpatient [place] [address] [facility] ing:PCURoom: Repository [id number]: 1 02/04/2018 [id number] [place], Ambulatory BMSBuilding:Dandy Car [place] Repository 02/04/2018 [id number] [place], Ambulatory BMSBuilding:[facility] Car [place].Critical access hospital Repository 02/04/2018 [id number] [place], Ambulatory BMSBuilding:Dandy Car [place].Critical access hospital Repository 02/04/2018 [id number] [place], Ambulatory BMSBuilding:Dandy Car [place].Critical access hospital Repository 02/04/2018 [id number] [place], Ambulatory BMSBuilding:Dandy Car [place].Critical access hospital Repository 01/12/2018 [id number] Ambulatory [facility] ing:LABSPEC Repository 12/16/2017 [id number] Ambulatory [facility] Hospital ing:LABSPEC Repository 11/22/2017/11/24/19 [id number] Ambulatory [address] Repository 11/22/2017/11/23/19 [id number] Ambulatory [address] Repository 11/22/2017/11/25/19 [id number] Ambulatory [address] Repository 11/18/2017 [id number] Ambulatory [facility] Hospital ing:LABSPEC Repository 10/21/2017 [id number] Ambulatory [facility] Hospital ing:LABSPEC Repository 10/05/2017/10/06/19 [id number] Ambulatory BMSBuilding:Dandy Ruggiero MS.[facility] Repository 09/29/2017 [id number] [facility] ing:LABSPEC Repository 09/24/2017 [id number] Ambulatory [facility] Hospital ing:LABSPEC Repository 09/16/2017/09/21/19 [id number] Torey James Inpatient [address] ing:PCURoom: Repository [id number]: 1 09/16/2017 [id number] Torey James Ambulatory BMSBuilding:Dandy Araujo [place].Critical access hospital Repository 09/16/2017 [id number] Torey James Ambulatory BMSBuilding:B [place].Critical access hospital Repository 09/16/2017 [id number] Torey James Ambulatory BMSBuilding:B [place].Critical access hospital Repository 09/16/2017 [id number] Torey James Ambulatory BMSBuilding:B [place] MS.CF.[facility] Repository 09/16/2017 [id number] Torey James Ambulatory BMSBuilding:B [place].Critical access hospital Repository 09/16/2017/09/21/19 [id number] Ambulatory BMSBuilding:W [place] 18 [facility] Repository 09/16/2017 [id number] Ambulatory BMSBuilding:B [place].Critical access hospital Repository 09/07/2017/09/08/19 [id number] Ambulatory BMSBuilding:B [place] 18 MS.[facility] Repository 08/20/2017 [id number] Ambulatory [facility] Hospital ing:MEDOUTP Repository 08/20/2017 [id number] Ambulatory [facility] Hospital ing:RAD.FUTUR Repository E 08/17/2017/08/19/19 [id number] Ambulatory [address] Repository 07/22/2017 [id number] Ambulatory [facility] Hospital ing:LABSPEC Repository 05/30/2017/05/31/19 [id number] Emergency [address] Hospital ing:ED Repository 05/11/2017/05/15/19 [id number] Ambulatory [address] Repository 05/04/2017 [id number] Ambulatory [facility] Hospital ing:LABSPEC Repository 04/22/2017/04/23/19 [id number] Ambulatory [address] Hospital ing:PT Repository 04/07/2017/04/08/19 [id number] Emergency [place] [facility] ing:ED Repository PAYERS PAYERS ENCOUNTER GUARANTOR PAYER SUBSCRIBER SOURCE 03/14/2018 CHRISTOPHER C Primary RAY SPROSTY [place] [id number] ANGELA Insurance:ANTHEMPolic IIIDOB: Community celena PEPE y Number: [id number] Hospital [address]Thd: (330 [id number] Repository [phone] () Date:6866-87-36RJ [address] [place] [address]GH: 03/14/2018 Secondary CHRISTOPHER C [place] Insurance:MEDICAIDPol SPROSTYDOB: [facility] icy Number: [id number] Hospital [id number] Repository Date:2018-03-14 03/14/2018 Tertiary NOT GIVENUNK [place] Insurance:SELF PAY [facility] Number: Effective Repository Date:2018-03-14 02/11/2018 CHRISTOPHER C Primary RAY SPROSTY [place] [id number] ANGELA Insurance:ANTHEMPolic IIIDOB: [facility] [place] Number: [id number] Hospital [address]Gdb: (330) [id number] Repository [phone] () Date:6945-35-46YK [address] [place] [address]UV: 02/11/2018 Secondary CHRISTOPHER C [place] Insurance:MEDICAIDPol SPROSTYDOB: Community icy Number: [id number] Hospital [id number] Repository Date:2018-02-11 02/11/2018 Tertiary NOT GIVENUNK [place] Insurance:SELF PAY [facility] Number: Effective Repository Date:2018-02-11 02/04/2018 CHRISTOPHER C Primary RAY SPROSTY [place] [id number] ANGELA Insurance:ANTHEMPolic IIIDOB: [facility] [place] Number: [id number] Hospital [address]Yue: (330 [id number] Repository [phone] () Date:4445-81-86YC [address], [place] [address]VT: 02/04/2018 Secondary CHRISTOPHER C [place] Insurance:MEDICAIDPol SPROSTYDOB: Community icy Number: [id number] Hospital [id number] Repository Date:2018-02-04 02/04/2018 Tertiary NOT GIVENUNK [place] Insurance:SELF PAY [facility]: Effective Repository Date:2018-02-04 02/04/2018 CHRISTOPHER C Primary RAY SPROSTY [place] [id number] ANGELA Insurance:ANTHEMPolic IIIDOB: Community celena PEPE y Number: [id number] Hospital [address]Rif: 330 [id number] Repository [phone] () Date:4829-37-51[address], [place] [address]UZ: 02/04/2018 Secondary CHRISTOPHER C Van Insurance:MEDICAIDPol SPROSTYDOB: Community icy Number: [id number] [facility] [id number] Repository Date:2018-02-04 02/04/2018 Tertiary NOT GIVENUNK Van Insurance:SELF PAY [facility] Number: Effective Repository Date:2018-02-04 02/04/2018 CHRISTOPHER C Primary RAY SPROSTY Van [id number] [place] Insurance:ANTHEMPolic IIIDOB: Community [place] y Number: [id number] Hospital 68490Sxd: (330 [id number] Repository [phone] () Date:6371-70-48KA [id number] [place] [address] 85514HB: 02/04/2018 Secondary CHRISTOPHER C [place] Insurance:MEDICAIDPol SPROSTYDOB: Community icy Number: [id number] [facility] [id number] Repository Date:2018-02-04 02/04/2018 Tertiary NOT GIVENUNK Van Insurance:SELF PAY [facility] Number: Effective Repository Date:2018-02-04 02/04/2018 CHRISTOPHER C Primary RAY SPROSTY Van [id number] [place] Insurance:ANTHEMPolic IIIDOB: Community celena [place] y Number: [id number] [facility] 85000Mwe: (330) [id number] Repository [phone] () Date:2333-32-95KI [id number] [place] [address] 55005VK: 02/04/2018 Secondary CHRISTOPHER C Van Insurance:MEDICAIDPol SPROSTYDOB: Community icy Number: [id number] [facility] [id number] Repository Date:2018-02-04 02/04/2018 Tertiary NOT GIVENUNK Van Insurance:SELF PAY [facility] Number: Effective Repository Date:2018-02-04 02/04/2018 CHRISTOPHER C Primary RAY SPROSTY Van [id number] [place] Insurance:ANTHEMPolic IIIDOB: [facility] celena PEPE y Number: [id number] [facility] 10345Alp: (330) [id number] Repository [phone] () Date:6578-81-71KF [address] [place] [address] 10967XG: 02/04/2018 Secondary CHRISTOPHER C [place] Insurance:MEDICAIDPol SPROSTYDOB: Community icy Number: [id number] Hospital [id number] Repository Date:2018-02-04 02/04/2018 Tertiary NOT GIVENUNK Van Insurance:SELF [facility] [facility]: Effective Repository Date:2018-02-04 02/04/2018 CHRISTOPHER C Primary RAY SPROSTY [place] [id number] [place] Insurance:ANTHEMPolic IIIDOB: Community [place] Number: [id number] Hospital 99652Mgg: (330) [id number] Repository [phone] () Date:8881-08-88LI [address], [place] [address]MA: 02/04/2018 Secondary CHRISTOPHER C Van Insurance:MEDICAIDPol SPROSTYDOB: Community icy Number: [id number] [facility] [id number] Repository Date:2018-02-04 02/04/2018 Tertiary NOT GIVENUNK [place] Insurance:SELF PA[place] [facility] Number: Effective Repository Date:2018-02-04 01/12/2018 CHRISTOPHER C Primary RAY SPROSTY Van [id number] [place] Insurance:ANTHEMPolic IIIDOB: Community AFSHIN, [place] y Number: [id number] Hospital 13116Xur: (330) [id number] Repository [phone] () Date:0622-45-29SI [address] [place] [address] 49870YN: 01/12/2018 Secondary CHRISTOPHER C Van Insurance:MEDICAIDPol SPROSTYDOB: Community icy Number: [id number] Hospital [id number] Repository Date:2018-01-12 01/12/2018 Tertiary NOT GIVENUNK Van Insurance:SELF [place] [facility]: Effective Repository Date:2018-01-12 12/16/2017 CHRISTOPHER C Primary RAY SPROSTY Van [id number] [place] Insurance:ANTHEMPolic IIIDOB: Community [place] Number: [id number] Hospital 85857Nta: (330) [id number] Repository [phone] () Date:6677-43-33TQ[address] [address]FG: 12/16/2017 Secondary CHRISTOPHER C Van Insurance:MEDICAIDPol SPROSTYDOB: Community icy Number: [id number] Hospital [id number] Repository Date:2017-12-16 12/16/2017 Tertiary NOT GIVENUNK Van Insurance:SELF PAY [facility] Number: Effective Repository Date:2017-12-16 11/18/2017 CHRISTOPHER C Primary RAY SPROSTY Van [id number] [place] Insurance:ANTHEMPolic IIIDOB: [place] Number: [id number] Hospital 34580Ltc: (330) [id number] Repository [phone] () Date:2482-17-32BJ [address] [place] [address] 12310RG: 11/18/2017 Secondary CHRISTOPHER C Van Insurance:MEDICAIDPol SPROSTYDOB: Community icy Number: [id number] Hospital [id number] Repository Date:2017-11-18 11/18/2017 Tertiary NOT GIVENUNK [place] Insurance:SELF PAY [facility] Number: Effective Repository Date:2017-11-18 10/21/2017 CHRISTOPHER C Primary RAY SPROSTY Van [id number] [place] Insurance:ANTHEMPolic IIIDOB: Community celena [place] y Number: [id number] Hospital 51856Ajq: (330 [id number] Repository [phone] () Date:8842-43-31CN [address], [place] [address]FY: 10/21/2017 Secondary CHRISTOPHER C Van Insurance:MEDICAIDPol SPROSTYDOB: [facility] icy Number: [id number] Hospital [id number] Repository Date:2017-10-21 10/21/2017 Tertiary NOT GIVENUNK [place] Insurance:SELF PAY [facility] Number: Effective Repository Date:2017-10-21 10/05/2017 CHRISTOPHER C Primary RAY SPROSTY Van [id number] [place] Insurance:ANTHEMPolic IIIDOB: Community cel[place] y Number: [id number] Hospital 66481Kuj: (330) [id number] Repository [phone] () Date:6705-78-73JY [address] [place] [address] 82519BE: 10/05/2017 Secondary CHRISTOPHER C Van Insurance:MEDICAIDPol SPROSTYDOB: Community icy Number: [id number] Hospital [id number] Repository Date:2017-09-20 10/05/2017 Tertiary NOT GIVENUNK Van Insurance:SELF PAY [facility] Number: Effective Repository Date:2017-10-05 09/29/2017 CHRISTOPHER C Primary RAY SPROSTY Van [id number] [place] Insurance:ANTHEMPolic IIIDOB: Community celena [place] y Number: [id number] Hospital 60261Rxl: (330) [id number] Repository [phone] () Date:8536-09-26FO [id number] [place] [address] 01727BB: 09/29/2017 Secondary CHRISTOPHER C Van Insurance:MEDICAIDPol SPROSTYDOB: Community icy Number: [id number] Hospital [id number] Repository Date:2017-09-29 09/29/2017 Tertiary NOT GIVENUNK [place] Insurance:SELF PAY [facility] Number: Effective Repository Date:2017-09-29 09/24/2017 CHRISTOPHER C Primary RAY SPROSTY Van [id number] [place] Insurance:ANTHEMPolic IIIDOB: [facility] celena [place] y Number: [id number] Hospital 25064Ltu: (330) [id number] Repository [phone] () Date:1081-58-00FR [address]XNOPPMA[address] [place] [address] 30369UL: 09/24/2017 Secondary CHRISTOPHER C [place] Insurance:MEDICAIDPol SPROSTYDOB: Community icy Number: [id number] Hospital [id number] Repository Date:2017-09-24 09/24/2017 Tertiary NOT GIVENUNK [place] Insurance:SELF PAY [facility] Number: Effective Repository Date:2017-09-24 09/16/2017 CHRISTOPHER C Primary RAY SPROSTY Van [id number] [place] Insurance:ANTHEMPolic IIIDOB: Community cel[place] y Number: [id number] [facility] 59362Uam: (330) [id number] Repository [phone] () Date:8296-05-15AG [address]IL[place]GD, [place] [address]BJ: 09/16/2017 Secondary CHRISTOPHER C [place] Insurance:MEDICAIDPol SPROSTYDOB: Community icy Number: [id number] [facility] [id number] Repository Date:2017-09-16 09/16/2017 Tertiary NOT GIVENUNK [place] Insurance:SELF PAY [facility] Number: Effective Repository Date:2017-09-16 09/16/2017 CHRISTOPHER C Primary RAY SPROSTY Van [id number] [place] Insurance:ANTHEMPolic IIIDOB: [facility] celena [place] y Number: [id number] Hospital 73275Zyf: (330 [id number] Repository [phone] () Date:4643-96-45RS [address]QKCKUD[address] [place] [address] 30591YX: 09/16/2017 Secondary CHRISTOPHER C [place] Insurance:MEDICAIDPol SPROSTYDOB: Community icy Number: [id number] Hospital [id number] Repository Date:2017-09-16 09/16/2017 Tertiary NOT GIVENUNK Van Insurance:SELF PAY [facility] Number: Effective Repository Date:2017-09-16 09/16/2017 CHRISTOPHER C Primary RAY SPROSTY [place] [id number] [place] Insurance:ANTHEMPolic IIIDOB: [facility] celena [place]PE y Number: [id number] Hospital 99378Qqk: (330 [id number] Repository [phone] () Date:8295-33-44TJ [address], [place] [address]KF: 09/16/2017 Secondary CHRISTOPHER C Van Insurance:MEDICAIDPol SPROSTYDOB: Community icy Number: [id number] Hospital [id number] Repository Date:2017-09-16 09/16/2017 Tertiary NOT GIVENUNK Van Insurance:SELF PAY [facility] Number: Effective Repository Date:2017-09-16 09/16/2017 CHRISTOPHER C Primary RAY SPROSTY [place] [id number] [place] Insurance:ANTHEMPolic IIIDOB: [facility] celena [place]PE y Number: [id number] Hospital 22436Vud: (330 [id number] Repository [phone] () Date:2249-28-06KU [address]BIFEDJU [place] [address]FO: 09/16/2017 Secondary CHRISTOPHER C [place] Insurance:MEDICAIDPol SPROSTYDOB: Community icy Number: [id number] Hospital [id number] Repository Date:2017-09-16 09/16/2017 Tertiary NOT GIVENUNK Van Insurance:SELF PAY [facility] Number: Effective Repository Date:2017-09-16 09/16/2017 CHRISTOPHER C Primary RAY SPROSTY Van [id number] [place] Insurance:ANTHEMPolic IIIDOB: Community [place] y Number: [id number] [facility] 20615Xtr: (330 [id number] Repository [phone] () Date:4177-46-57BA [address]UOI [place] [address]AO: 09/16/2017 Secondary CHRISTOPHER C Van Insurance:MEDICAIDPol SPROSTYDOB: Community icy Number: [id number] Hospital [id number] Repository Date:2017-09-16 09/16/2017 Tertiary NOT GIVENUNK Van Insurance:SELF PAY [facility] Number: Effective Repository Date:2017-09-16 09/16/2017 CHRISTOPHER C Primary RAY SPROSTY [place] [id number] [place] Insurance:ANTHEMPolic IIIDOB: Community cel[place] y Number: [id number] Hospital 58356Ffx: (330 [id number] Repository [phone] () Date:7862-79-15WY [address]GFDZDSF [place] [address]BO: 09/16/2017 Secondary CHRISTOPHER C Van Insurance:MEDICAIDPol SPROSTYDOB: Community icy Number: [id number] Hospital [id number] Repository Date:2017-09-16 09/16/2017 Tertiary NOT GIVENUNK Van Insurance:SELF PAY [facility] Number: Effective Repository Date:2017-09-16 09/16/2017 CHRISTOPHER C Primary RAY SPROSTY [place] [id number] [place] Insurance:ANTHEMPolic IIIDOB: [facility] celena [place] y Number: [id number] Hospital 99289Utb: (330 [id number] Repository [phone] () Date:4922-08-68TN [address] [place] [address] 01202LR: 09/16/2017 Secondary CHRISTOPHER C [place] Insurance:MEDICAIDPol SPROSTYDOB: [facility] icy Number: [id number] Hospital [id number] Repository Date:2017-09-16 09/16/2017 Tertiary NOT GIVENUNK Van Insurance:SELF [place] [facility]: Effective Repository Date:2017-09-16 09/16/2017 CHRISTOPHER C Primary RAY SPROSTY Van [id number] [place] Insurance:ANTHEMPolic IIIDOB: [facility] celena [place] y Number: [id number] Hospital 05247Sqt: (330) [id number] Repository [phone] () Date:4803-09-67AB[address] [address]WE: 09/16/2017 Secondary CHRISTOPHER C Van Insurance:MEDICAIDPol SPROSTYDOB: [facility] icy Number: [id number] Hospital [id number] Repository Date:2017-09-16 09/16/2017 Tertiary NOT GIVENUNK [place] Insurance:SELF PA[place] [facility] Number: Effective Repository Date:2017-09-16 09/07/2017 CHRISTOPHER C Primary RAY SPROSTY Van [id number] [place] Insurance:ANTHEMPolic IIIDOB: [facility] celena [place] y Number: [id number] Hospital 65421Djk: (330 [id number] Repository [phone] () Date:1966-85-73AU [facility] 334267INQMWQQ [place] [address]BR: 09/07/2017 Secondary CHRISTOPHER C Van Insurance:MEDICAIDPol SPROSTYDOB: Community icy Number: [id number] Hospital [id number] Repository Date:2017-02-02 09/07/2017 Tertiary NOT GIVENUNK Van Insurance:SELF PAY [facility] Number: Effective Repository Date:2017-02-02 08/20/2017 CHRISTOPHER C Primary RAY SPROSTY Van [id number] [place] Insurance:ANTHEMPolic IIIUNK [facility] [place] Number: Hospital 76505Fpm: 330 [id number] Repository [phone] () Date:4184-21-40KJ [address]KNMPGSD [place] [id number]: 08/20/2017 Secondary CHRISTOPHER C [place] Insurance:MEDICAIDPol SPROSTYDOB: Community icy Number: [id number] Hospital [id number] Repository Date:2017-08-19 08/20/2017 Tertiary NOT GIVENUNK Van Insurance:SELF PAY [facility] Number: Effective Repository Date:2017-08-19 08/20/2017 CHRISTOPHER C Primary RAY SPROSTY Van [id number] [place] Insurance:ANTHEMPolic IIIUNK [facility] [place] Number: [facility] 38990Edv: 330 [id number] Repository [phone] () Date:0978-23-12JQ [address]FUSZUWG, [place] [address]ZA: 08/20/2017 Secondary CHRISTOPHER C [place] Insurance:MEDICAIDPol SPROSTYDOB: Community icy Number: [id number] Hospital [id number] Repository Date:2017-08-20 08/20/2017 Tertiary NOT GIVENUNK Van Insurance:SELF PAY [facility] Number: Effective Repository Date:2017-08-20 07/22/2017 CHRISTOPHER Primary RAY SPROSTY Van [id number] [place] Insurance:ANTHEMPolic IIIUNK [facility] [place] Number: [facility] 34929Isz: [id number] Repository [phone] Date:9116-45-52KW [address] () [address] [place] [address] 99969IS: 07/22/2017 Secondary CHRISTOPHER [place] Insurance:MEDICAIDPol SPROSTYDOB: Community icy Number: [id number] Hospital [id number] Repository Date:2017-07-22 07/22/2017 Tertiary NOT GIVENUNK [place] Insurance:SELF PAY [facility] Number: Effective Repository Date:2017-07-22 05/30/2017 CHRISTOPHER Primary RAY SPROSTY Van [id number] [place] Insurance:ANTHEMPolic IIIUNK [facility] [place] Number: [facility] 37440Ayy: [id number] Repository [phone] Date:2592-27-49TS [address] () [address] [place] [address] 96232NQ: 05/30/2017 Secondary CHRISTOPHER Van Insurance:MEDICAIDPol SPROSTYDOB: Community icy Number: [id number] Hospital [id number] Repository Date:2017-05-30 05/30/2017 Tertiary NOT GIVENUNK [place] Insurance:SELF PAY [facility] Number: Effective Repository Date:2017-05-30 05/04/2017 CHRISTOPHER Primary RAY SPROSTY [place] [id number] [place] Insurance:ANTHEMPolic IIIUNK [facility] [place] Number: [facility] 40890Tip: [id number] Repository [phone] Date:2932-16-28XU [address] () [address] [place] [address] 15739KT: 05/04/2017 Secondary CHRISTOPHER [place] Insurance:MEDICAIDPol SPROSTYDOB: Community icy Number: [id number] Hospital [id number] Repository Date:2017-05-04 05/04/2017 Tertiary NOT GIVENUNK [place] Insurance:SELF PAY [facility] Number: Effective Repository Date:2017-05-04 04/22/2017 Christopher Primary RAY SPROSTY Van [id number] [place] Insurance:ANTHEM [place]UNK [place] [facility] [address]Svn: Number: Repository [phone]- [id number] 2 (HP) Date:3950-59-60CV [address] [place] [address] 75893LA: 04/22/2017 Secondary Christopher Van Insurance:MEDICAIDPol SprostyDOB: Community icy Number: [id number] Hospital [id number] Repository Date:2017-03-25 04/22/2017 Tertiary NOT GIVENUNK [place] Insurance:SELF PAY [facility] Number: Effective Repository Date:2017-04-20 04/07/2017 CHRISTOPHER Primary RAY SPROSTY [place] [id number] VENICE Insurance:[facility] 65471Ehn: Number: Repository [phone]- [id number] 2 (HP) Date:5840-73-21UL [address] [place] [address] 19094VL: 04/07/2017 Secondary CHRISTOPHER Van Insurance:MEDICAIDPol SPROSTYDOB: Community icy Number: [id number] Hospital [id number] Repository Date:2017-04-07 04/07/2017 Tertiary NOT GIVENUNK [place] Insurance:SELF PAY [facility] Number: Effective Repository Date:2017-04-07
== END 2018-02-08 18:36 | disposition home or self-care (01) | DRG 871 ==
LOC: ED 14:42 → PCU 17:21
PROVIDERS: Physician Assistant; Admitting Provider Family Medicine; Emergency Provider Emergency Medicine; Family Provider Family Medicine; PCP Family Medicine; Visit Provider Internal Medicine
DX: A41.9 Sepsis, unspecified organism (principal); J96.21 Acute and chronic respiratory failure with hypoxia; J69.0 Pneumonitis due to inhalation of food and vomit; F72 Severe intellectual disabilities; R65.20 Severe sepsis without septic shock; Z93.1 Gastrostomy status; K59.09 Other constipation; D64.9 Anemia, unspecified; I34.1 Nonrheumatic mitral (valve) prolapse; G80.9 Cerebral palsy, unspecified; G40.909 Epilepsy, unspecified, not intractable, without status epilepticus; Z93.3 Colostomy status; Z99.81 Dependence on supplemental oxygen
CPT/HCPCS: 36591; 71045; 71046; 74018; 80048; 80053; 81001; 83605; 83735; 84100; 85025; 85610; 85730; 87040; 87077; 87086; 87088; 87186; 87449; 87633; 93005; 97802; 97803; 99282; J7030; A4216; J0295; J2405

== ENCOUNTER → 2018-02-11 17:38 | Outpatient (CLI) | payer BC, MEDICAID, SELFPAY ==
[2018-02-04 17:51] VITALS: BMI 33.5
[2018-02-11 17:53] LABS: Anion Gap 8 (5-15); BUN 11 mg/dL (7-18); BUN/Creat Ratio 34.6 RATIO (10-20); Calcium,Total 8.7 mg/dL (8.5-10.1); Chloride 106 mmol/L (98-107); Creatinine, Serum 0.32 mg/dL (0.70-1.30); EST Glomerular Filtration Rate 337 mL/min (>60); Est Glom Filt Rate - Afr Amer 408 mL/min (>60); Glucose 84 mg/dL (74-106); Potassium 3.8 mmol/L (3.5-5.1); Sodium Level 142 mmol/L (136-145)
== END ==
PROVIDERS: Physician Assistant; Family Provider Family Medicine; PCP Family Medicine; Referring Provider Internal Medicine Cardiovascular Disease; Visit Provider Internal Medicine Cardiovascular Disease
DX: E87.6 Hypokalemia (principal); G80.9 Cerebral palsy, unspecified; Z87.01 Personal history of pneumonia (recurrent)
CPT/HCPCS: 80048

== ENCOUNTER 2018-03-14 14:58 | Outpatient (RCR) | payer BC, MEDICAID, SELFPAY ==
[2018-02-04 17:51] VITALS: BMI 33.5
[2018-03-14 15:26] LABS: Anion Gap 8 (5-15); BUN 21 mg/dL (7-18); BUN/Creat Ratio 50.7 RATIO (10-20); Calcium,Total 8.8 mg/dL (8.5-10.1); Chloride 105 mmol/L (98-107); Creatinine, Serum 0.41 mg/dL (0.70-1.30); EST Glomerular Filtration Rate 249 mL/min (>60); Est Glom Filt Rate - Afr Amer 301 mL/min (>60); Glucose 100 mg/dL (74-106); Potassium 3.8 mmol/L (3.5-5.1); Sodium Level 140 mmol/L (136-145)
--- OUTSIDE RECORDS SUMMARY | 2018-05-17 03:22 | XMS RPT_ITS ---
:1980 Author Organization OHIP Support Name Relationship Address Phone D Unavailable Unavailable Unavailable SPROSTY, BRICE Unavailable [address] + [place] [address] SPROSTY III, RAY Unavailable [address] + [place] [address] D Unavailable Unavailable Unavailable SPROSTY, BRICE Unavailable [address] + [place] [address] SPROSTY III, RAY Unavailable [address] + [place] [address] D Unavailable Unavailable Unavailable SPROSTY, BRICE Unavailable [address] + [place] [address] SPROSTY III, RAY Unavailable [address] + [place] [address] D Unavailable Unavailable Unavailable SPROSTY, BRICE Unavailable [address] + [place] [address] SPROSTY III, RAY Unavailable [address] + [place] [address] D Unavailable Unavailable Unavailable SPROSTY, BRICE Unavailable [address] + [place] [address] SPROSTY III, RAY Unavailable [address] + [place] [address] D Unavailable Unavailable Unavailable SPROSTY, BRICE Unavailable [address] + [place] [address] SPROSTY III, RAY Unavailable [address] + [place] [address] D Unavailable Unavailable Unavailable SPROSTY, BRICE Unavailable [address] + [place] [address] SPROSTY III, RAY Unavailable [address] + [place] [address] D Unavailable Unavailable Unavailable SPROSTY, BRICE Unavailable [address] + [place] [address] SPROSTY III, RAY Unavailable [address] + [place] [address] D Unavailable Unavailable Unavailable SPROSTY, BRICE Unavailable [address] + [place] [address] SPROSTY III, RAY Unavailable [address] + [place] [address] D Unavailable Unavailable Unavailable SPROSTY, BRICE Unavailable [address] + [place] [address] SPROSTY III, RAY Unavailable [address] + [place] [address] D Unavailable Unavailable Unavailable SPROSTY, BRICE Unavailable [address] + [place] [address] SPROSTY III, RAY Unavailable [address] + [place] [address] D Unavailable Unavailable Unavailable SPROSTY, BRICE Unavailable [address] + [place] [address] SPROSTY III, RAY Unavailable [address] + [place] [address] D Unavailable Unavailable Unavailable SPROSTY, BRICE Unavailable [address] + [place] [address] SPROSTY III, RAY Unavailable [address] + [place] [address] D Unavailable Unavailable Unavailable SPROSTY, BRICE Unavailable [address] + [place] [address] SPROSTY III, RAY Unavailable [address] + [place] [address] D Unavailable Unavailable Unavailable SPROSTY, BRICE Unavailable [address] + [place] [address] SPROSTY III, RAY Unavailable [address] + [place] [address] D Unavailable Unavailable Unavailable SPROSTY, BRICE Unavailable [address] + [place] [address] SPROSTY III, RAY Unavailable [address] + [place] [address] D Unavailable Unavailable Unavailable SPROSTY, BRICE Unavailable [address] + [place] [address] SPROSTY III, RAY Unavailable [address] + [place] [address] D Unavailable Unavailable Unavailable SPROSTY, BRICE Unavailable [address] + [place] [address] SPROSTY III, RAY Unavailable [address] + [place] [address] D Unavailable Unavailable Unavailable SPROSTY, BRICE Unavailable [address] + [place] [address] SPROSTY III, RAY Unavailable [address] + [place] [address] D Unavailable Unavailable Unavailable SPROSTY, BRICE Unavailable [address] + [place] [address] SPROSTY III, RAY Unavailable [address] + [place] [address] D Unavailable Unavailable Unavailable SPROSTY, BRICE Unavailable [address] + [place] [address] SPROSTY III, RAY Unavailable [address] + [place] [address] D Unavailable Unavailable Unavailable SPROSTY, BRICE Unavailable [address] + [place] [address] SPROSTY III, RAY Unavailable [address] + [place] [address] D Unavailable Unavailable Unavailable SPROSTY, BRICE Unavailable [address] + [place] [address] SPROSTY III, RAY Unavailable [address] + [place] [address] D Unavailable Unavailable Unavailable SPROSTY, BRICE Unavailable [address] + [place] [address] SPROSTY III, RAY Unavailable [address] + [place] [address] D Unavailable Unavailable Unavailable SPROSTY, BRICE Unavailable [address] + [place] [address] SPROSTY III, RAY Unavailable [address] + [place] [address] D Unavailable Unavailable Unavailable SPROSTY, ABILIO Unavailable [address] + [place] [address] SPROSTY III, RAY Unavailable [address] + [place] [address] D Unavailable Unavailable Unavailable SPROSTY, ABILIO Unavailable [address] + [place] [address] SPROSTY III, RAY Unavailable [address] + [place] [address] D Unavailable Unavailable Unavailable SPROSTY, ABILIO Unavailable [address] + [place] [address] SPROSTY III, RAY Unavailable [address] [phone] [place] [address] D Unavailable Unavailable Unavailable SPROSTY, ABILIO Unavailable [address] + [place] [address] SPROSTY III, RAY Unavailable [address] [phone] [place] [address] D Unavailable Unavailable Unavailable SPROSTY, ABILIO Unavailable [address] + [place] [address] SPROSTY III, RAY Unavailable [address] [phone] [place] [address] D Unavailable Unavailable Unavailable SPROSTY, ABILIO Unavailable [address] + [place] [address] SPROSTY III, RAY Unavailable [address] [phone] [place] [address] D Unavailable Unavailable Unavailable SPROSTY, ABILIO Unavailable [address] + [place] [address] SPROSTY III, RAY Unavailable [address] [phone] [place] [address] Care Team Providers Name Role Phone ESTEFANIA GONZALEZ Attending Unavailable ESTEFANIA GONZALEZ Referring Unavailable ALEJANDRINA GARCIA (CHAMP) Attending Unavailable ESTEFANIA GONZALEZ Referring Unavailable ESTEFANIA GONZALEZ Attending Unavailable ISSA PADRON Referring Unavailable ALEJANDRINA GARCIA (CHAMP) Attending Unavailable ALEJANDRINA GARCIA (CHAMP) Referring Unavailable ALEJANDRINA GARCIA) Attending Unavailable DUARTE MARCH) Attending Unavailable ESTEFANIA GONZALEZ Attending Unavailable BETHOUX, ISSA Referring Unavailable BETHOUX, ISSA Attending Unavailable BETHOUX, CHAO Referring Unavailable ESTEFANIA GONZALEZ Attending Unavailable GONZALEZ, ESTEFANIA Referring Unavailable Kotsonis, Barry F Admitting Unavailable Perkins, Timmy Primary Care Unavailable Ashelfah, Ghasem Consulting Unavailable Ashelfah, Ghasem Attending Unavailable Kotsonis, Barry F Admitting Unavailable Ashelfah, Ghasem Attending Unavailable Perkins, Tmimy Primary Care Unavailable Ashelfah, Ghasem Consulting Unavailable Perkins, Timmy Primary Care Unavailable Trevor Rae Attending Unavailable MariannMaury Attending Unavailable Mariann, Maury Referring Unavailable Perkins, Timmy Primary Care Unavailable Perkins, Timmy Attending Unavailable Perkins, Timmy Primary Care Unavailable Perkins, Timmy Referring Unavailable Perkins, Timmy Attending Unavailable Perkins, Timmy Referring Unavailable Perkins, Timmy Primary Care Unavailable Mariann, Maury Attending Unavailable Perkins, Timmy Primary Care Unavailable Mariann, Maury Referring Unavailable Paul Jackson Consulting Unavailable Perkins, Timmy Primary Care Unavailable Victor M Huff Attending Unavailable Victor M Huff Referring Unavailable Perkins, Timmy Attending Unavailable Perkins, Timmy Primary Care Unavailable Perkins, Timmy Attending Unavailable Perkins, Timmy Referring Unavailable Perkins, Timmy Primary Care Unavailable Kotsonis, Barry F Admitting Unavailable Perkins, Timmy Primary Care Unavailable Michael Posadas Consulting Unavailable Michael Posadas Attending Unavailable Orlinonis, Barry F Admitting Unavailable Perkins, Timmy Primary Care Unavailable Michael Posadas Consulting Unavailable Michael Posadas Attending Unavailable Kotsonis, Barry F Admitting Unavailable Perkins, Timmy Primary Care Unavailable Kotsonis, Barry F Consulting Unavailable Kotsonis, Barry F Attending Unavailable Perkins, Timmy Primary Care Unavailable Kotsonis, Barry F Admitting Unavailable Michael Posadas Attending Unavailable Jacob, Torey Admitting Unavailable Perkins, Timmy Primary Care Unavailable Jacek Monsalve Consulting Unavailable Paintsil, Rome Attending Unavailable Paintsil, Rome Consulting Unavailable Amoseri, Torey Admitting Unavailable Paintsil, Rome Attending Unavailable Perkins, Timmy Primary Care Unavailable Jacek Monsalve Consulting Unavailable Paintsil, Rome Consulting Unavailable Jopperi, Torey Admitting Unavailable Paintsil, Rome Attending Unavailable Perkins, Timmy Primary Care Unavailable Bello, Jacek Consulting Unavailable Paintsil, Rome Consulting Unavailable Jopperi, Torey Attending Unavailable Perkins, Timmy Primary Care Unavailable Perkins, Timmy Primary Care Unavailable Jopperi, Torey Admitting Unavailable Bello, Jacek Consulting Unavailable Koram, Cindy Annemarie Attending Unavailable Perkins, Timmy Attending Unavailable Perkins, Timmy Referring Unavailable Perkins, Timmy Primary Care Unavailable Mariann, Washington Attending Unavailable Perkins, Timmy Referring Unavailable Mariann, Maury Attending Unavailable Mariann, Maury Referring Unavailable Mariann, Maury Attending Unavailable Perkins, Timmy Primary Care Unavailable Mariann, Washington Referring Unavailable Bello, Jacek Attending Unavailable Jopperi, Torey Referring Unavailable Roof, Timmy H Attending Unavailable Perkins, Timmy Referring Unavailable Perkins, Timmy Primary Care Unavailable Perkins, Timmy Attending Unavailable Renetta, Paul Attending Unavailable Renetta, Paul Referring Unavailable Perkins, Timmy Primary Care Unavailable Jopperi, Torey Admitting Unavailable Perkins, Timmy Primary Care Unavailable Bello, Jacek Consulting Unavailable Koram, Cindy Annemarie Attending Unavailable Koram, Cindy Annemarie Consulting Unavailable Jopperi, Torey Admitting Unavailable Yovanny Moreira D.O. Attending Unavailable Perkins, Timmy Primary Care Unavailable Bello, Jacek Consulting Unavailable Koram, Cindy Annemarie Consulting Unavailable Mariann, Maury Attending Unavailable Mariann, Washington Referring Unavailable Perkins, Timmy Attending Unavailable Perkins, Timmy Referring Unavailable Mariann, Washington Attending Unavailable Perkins, Timmy Referring Unavailable Perkins, Timmy Primary Care Unavailable PROBLEMS PROBLEMS DATE TYPE CONDITION / CODE ATTENDING STATUS SOURCE 03/18/2018 Unknown Z01.810 - Encounter Mariann, Maury Active [place] for preprocedural [facility] Hospital examination / Repository Z01.810(ICD-10) 03/18/2018 Unknown R60.9 - Edema, Mariann, Maury Active [place] unspecified / Community R60.9(ICD-10) Hospital Repository 08/31/2015 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 / Clinic Main G80.0(ICD-10) [place] Repository 02/19/2015 Active Cerebral palsy, ESTEFANIA GONZALEZ Active [place] unspecified / Clinic Main G80.9(ICD-10) [place] Repository 02/14/2018 Unknown E87.6 - Hypokalemia / Mariann, Maury Active [place] E87.6(ICD-10) Community Hospital Repository 12/17/2017 Unknown 276.0 - Timmy Perikns Active [place] Hyperosmolality Community and/or hypernatremia Hospital / 276.0(ICD-9) Repository 12/17/2017 Unknown E87.0 - Timmy Perkins Active [place] Hyperosmolality and Community hypernatremia / Hospital E87.0(ICD-10) Repository 10/06/2017 Unknown A41.9 - Sepsis, Bello, Jacek Active [place] unspecified organism Community / A41.9(ICD-10) Hospital Repository 10/06/2017 Unknown R65.20 - Severe Bello, Jacek Active [place] sepsis without septic Community shock / Hospital R65.20(ICD-10) Repository 10/06/2017 Unknown J18.9 - Pneumonia, Bello, Jacek Active [place] unspecified organism Community / J18.9(ICD-10) Hospital Repository 10/06/2017 Unknown J96.00 - Acute Bello, Jacek Active [place] respiratory failure, Community unspecified whether Hospital with hypoxia or Repository hypercapnia / J96.00(ICD-10) 05/11/2017 Active Quadriplegia, ESTEFANIA GONZALEZ Active [place] unspecified / Clinic Main G82.50(ICD-10) [place] Repository 06/03/2017 Unknown G80.9 - Cerebral Timmy Perkins Active [place] palsy, unspecified / Community G80.9(ICD-10) Hospital Repository 05/17/2017 Unknown R00.0 - Tachycardia, Kyra, Trevor Active [place] unspecified / Community R00.0(ICD-10) Hospital Repository PROCEDURES PROCEDURES No Procedure Records FoundRESULTS RESULTS CARDIOLOGY VISIT Observed: 03/18/2018 Status: F Source: [place] REPORT 10:42 AM [facility] REPOSITORY [facility] [address] [place] [address] OFFICE VISIT Date of Service: 03/18/18 MR#: [id number] Acct: [id number] Name: KRISS MICHAEL Rep #: [id number] : 1980 Provider: Maury Waite MD Age/Sex: 38/M Location: [facility] [place] [place] Status: Signed HPI HPI Chief Complaint: Follow up Details: KRISS MICHAEL, is a 38 M who presents to the office today for a follow-up visit. He is a gentleman with a history of cerebral palsy, previous G-tube, as well as history of preserved left ventricular systolic function. He did have an echocardiogram which demonstrated an ejection fraction of 65% and a chest x-ray as well as natruretic peptide level which was normal. He was admitted to [facility] emergency department in August 2017 for increased respiratory rate and heart rate. He was admitted and treated for aspiration pneumonia. He was recently admitted to the hospital again in January with sepsis, aspiration pneumonia. He was unfortunately fluid overloaded and he needed to have his Lasix reinstituted. He has diuresed appropriately and his edema has improved. Cardiac cuadra he does not appear to have any major symptoms. He is scheduled to have surgery at the [facility] in the next few weeks to replace his baclofen pump. His physical exam here today demonstrates clear lung pisano regular rate and rhythm and minimal pitting edema. His lower extremities are [place] wrapped. Intake Vital Signs03/18/18 Height 5 ft Intake Visit Reasons: 6 M FU Allergies cisapride monohydrate [From Propulsid] Allergy (Verified 03/18/18 08:21) Rash codeine Adverse Reaction (Verified 03/18/18 08:21) hallucinations metronidazole [From Flagyl] Adverse Reaction (Verified 03/18/18 08:21) Rash morphine Adverse Reaction (Verified 03/18/18 08:21) Hallucinations dust Allergy (Uncoded 03/18/18 08:21) Other Medications Simethicone 40MG/0.6ML [Mylicon] 40 mg GT TID 11/09/13 [History Confirmed 03/18/18] Pantoprazole Sodium [Protonix] 20 ml GT BID 08/09/14 [History Confirmed 03/18/18] Senna/Docusate Sodium 5 ml GT PRN PRN 08/03/15 [History Confirmed 03/18/18] Polyethylene Glycol 3350 [Miralax] 17 gm GT DAILY 08/30/15 [History Confirmed 03/18/18] Magnesium Hydroxide [Milk Of Magnesia] 35 - 50 ml GT DAILY PRN PRN 12/20/15 [History Confirmed 03/18/18] Metoclopramide [Reglan Solution] 5 mg GT TID 10/28/16 [History Confirmed 03/18/18] Lactulose [Chronulac] 30 ml GT DAILY 06/01/16 [History Confirmed 03/18/18] Phenobarbital 60 mg GT BID 02/19/17 [History Confirmed 03/18/18] furosemide 10 mg/mL oral solution 20 mg PO DAILY ml 11/09/17 [History Confirmed 03/18/18] Cetirizine HCl [Zyrtec] 10 mg PO DAILY 02/04/18 [History Confirmed 03/18/18] Lactobacillus Acidophilus [Acidophilus] 1 cap PO DAILY 02/04/18 [History Confirmed 03/18/18] Potassium Chl Soln 15 meq GT DAILY 02/04/18 [History Confirmed 03/18/18] Amox/Clav 400mg/5ml Susp [Augmentin Suspension 400mg/5ml] 800 mg PO BIDCM #1 bottle 02/08/18 [Rx Confirmed 03/18/18] Jevity 1.5 1,000 ml PO 4X/DAY #0 02/08/18 [Rx Confirmed 03/18/18] baclofen 10,000 mcg/20 mL (500 mcg/mL) intrathecal syringe 306 mcg INTRATH DAILY ml 03/18/18 [History Confirmed 03/18/18] baclofen 20 mg tablet 20 mg PO QHS tab 03/18/18 [History Confirmed 03/18/18] PFSH Medical History Aspiration pneumonia (Chronic) Nonrheumatic mitral valve prolapse (Chronic) Cerebral palsy (Chronic) Surgical History Heel cord lengthening (Chronic) History of colostomy [...] intake: never caffeine: No ROS Const Const: Positive for other; negative for fatigue, weakness, difficulty sleeping, frequent falls, excessive sweating or headache(s) Eyes Eyes: Negative for loss of peripheral vision, transient loss of vision, blurry vision, tunnel vision or double vision ENT ENT: Negative for headache(s), dizziness, Nosebleed/epistaxis or balance problems Cardio Chest Pain: No Palpitations: No Edema: Bilateral (Leg wraps in place, better since taking lasix daily) Muscle aches with walking: None Resp Respiratory: Negative for SOB with activity, SOB at rest, SOB orthopnea\SOB lying down, paroxysmal nocturnal dyspnea or Cough GI GI: Negative nausea, heartburn, black,tarry stools or vomiting : Negative for hematuria Musc Musc: Negative for balance problems, muscle aches/ myalgia, muscle weakness or joint pain Skin Skin: Negative non-healing lesions, unusual bruising or rash Neuro Neuro: Negative for weakness, frequent falls, headache(s), blurry vision, double vision, dizziness, lightheadedness, orthostatic symptoms, near syncope, syncope or lack of coordination Pedro Hematologic/Lymphatic: Negative for easy bruising or easy bleeding Endo Endo: Negative for fatigue, excessive sweating or increased thirst/drinking Psych Psych: Negative for anxiety or depression Allergy Allergy/Immunology: Negative for hives, Negative for rash Cardiology Exam Const Appearance: well groomed Nutritional Appearance: edematous Orientation: awake Limitations: behavioral limitations Head Head: normal to inspection, normocephalic and [...] Pulse, Left Radial Pulse Lower Extremity Edema: None: Bilateral Musculoskel Musculoskeletal: No joint tenderness Psych Psychological: normal affect Assessment AND Plan 1. Preop cardiovascular exam Z01.810 Plan At this time he appears to be quite stable. His electrocardiogram during his hospitalization demonstrated sinus rhythm and his echocardiogram from the last 18 months demonstrates preserved ejection fraction of 65% with no wall motion abnormalities noted. At this time I do not think there is a reason to pursue any further cardiac testing. He should be able to undergo the appropriate anesthesia with low to minimal risk. The above has been discussed with the parents. 2. Edema R60.9 Plan His edema appears to be much improved with the diuretic management that he is on which will be continued recent electrolytes demonstrated a potassium of 3.8 BUN of 21 and creatinine of 0.4. Thank you for allowing me to participate in the care of your patient. 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) Coding Level of Care Code Off vis,est,level 4 Diagnoses Preop cardiovascular exam Z01.810 Edema R60.9 Coding Level of Care Code Off vis,est,level 4 Diagnoses Preop cardiovascular exam Z01.810 Edema R60.9 Supplemental Info Supplemental Information Diagnostics Electrocardiogram 02/04/18 Chest X-Ray 02/06/18 03/18/18 1042 <Electronically signed by Maury Waite MD> Date Maury Waite MD Cosigner Signature: Date (if applicable) CC: Timmy Perkins MD BASIC METABOLIC Collected: 03/14/2018 Status: F Source: [place] PROFILE ([facility]) 1:20 PM [facility] REPOSITORY TYPE CODE TESTS RESULT OUT OF [...] GAP 8 Performed By: #### L500.2500 #### [facility] [address] [place], [address] CNOV Observed: 03/07/2018 Status: COMPLETED Source: [place] 2:30 PM [facility] REPOSITORY Office Visit (NEMSMN) KRISS MICHAEL ([id number]) 1980 M Date Time Provider Department 03/07/18 2:30 PM ALEJANDRINA GARCIA (PA) NEMSMBarry During your visit today, we recorded the [...] at home: no; has IO waiver through [employer] [place]; 2 aides one day a wk each, [facility] [place] [facility] sends aides. Driving issues: NA [...] Current Rate: 595 mcg/day MODE: simple continuous [place] Residual: 24.5 ml Actual Residual: na ml Pump Refilled: No Program Change: decreased rate by 15% Drug: Lioresal Drug Concentration: 2000 mcg/ml NEW RATE: 506.1 mcg./day MODE: simple continuous Bolus Given: No Estimated HUBERT: 10 months [place] alarm date: 05/26/2018 ASSESSMENT: No change in spasticity noted after the last ITB rate decrease. Will continue to decrease his rate in preparation for pump replacement surgery with likely revision. [facility] will help decrease the ITB rate. An [...] Timmy Perkins MD. -Please fax note to [facility]; ATTN: Leeanne Brown RN. F/U: ; alarm date 05/26/2018 Alejandrina Garcia PA-C Referring Provider: ESTEFANIA GONZALEZ [[id number]] Allergies As of Date: 03/07/2018 Noted Allergy [...] mouth once jenni* BACLOFEN 2,000 MCG/ML INTRATH* [employer] Refill Kit # 8566, * MICONAZOLE NITRATE [...] pain [G89.18] INVALID FOR* More... DVT prophylaxis [[id number]] INVALID FOR* More... Clostridium difficile infection [B96.89] [...] 03/07/18 PROGRESS Observed: 03/07/2018 Status: COMPLETED Source: [place] 2:06 PM [facility] [place] REPOSITORY HNO ID: [id number] Author: Jason Roberts MS Service: (none) Author [...] cake and drop of scotch), weight stable, [id number] lbs (vs. 171 lb at last visit) [...] parents: Yes Procedure confirmed with physician and patient support associate: Yes Personnel involved in the procedure: Physician: Estefania Gonzalez MD and [place]ker, Medical Farmer Cash Grain: Yue Huffman RN UNIVERSAL PROTOCOL / SAFETY [...] MD CNOV Observed: 03/07/2018 Status: COMPLETED Source: [place] 1:45 PM [facility] REPOSITORY Office Visit (NEMSMN) KRISS MICHAEL ([id number]) 1980 M Date Time Provider Department 03/07/18 [...] skin should be examined by a health acute care physical therapist to rule out infection. If you experience pain in the muscles injected over the next few days, you can take Tylenol to control the pain (unless contra-indicated). Please call our office at [phone] with any questions or concerns. MD Jason [...] parents: Yes Procedure confirmed with physician and patient support associate: Yes Personnel involved in the procedure: Physician: Estefania Gonzalez MD and [place], Medical Farmer Cash Grain: Yue Huffman RN UNIVERSAL PROTOCOL / SAFETY [...] Estefania Gonzalez MD Referring Provider: ISSA PADRON [[id number]] Allergies As of Date: 03/07/2018 Noted Allergy [...] mouth once jenni* BACLOFEN 2,000 MCG/ML INTRATH* [employer] Refill Kit # 8566, * MICONAZOLE NITRATE [...] pain [G89.18] INVALID FOR* More... DVT prophylaxis [[id number]] INVALID FOR* More... Clostridium difficile infection [B96.89] [...] skin should be examined by a health acute care physical therapist to rule out infection. If you experience pain in the muscles injected over the next few days, you can take Tylenol to control the pain (unless contra-indicated). Please call our office at [phone] with any questions or concerns. Estefania Gonzalez MD Disposition: Return in about 3 months (around 06/05/2018) for Repeat botox injections in 3 months. Follow-up and Disposition History Recorded Encounter Status:Closed by ESTEFANIA GONZALEZ MD on 03/07/18 PROGRESS Observed: 03/07/2018 Status: COMPLETED Source: [place] 12:53 PM [facility] REPOSITORY HNO ID: [id number] Author: Alejandrina Garcia (Pa) Service: (none) Author Type: Physician Gate Services Supervisor Type: Progress Notes Filed: 03/07/2018 4:02 PM [...] at home: no; has IO waiver through [employer] ; 2 aides one day [...] Current Rate: 595 mcg/day MODE: simple continuous [place] Residual: 24.5 ml Actual Residual: na ml Pump Refilled: No Program Change: decreased rate by 15% Drug: Lioresal Drug Concentration: 2000 mcg/ml NEW RATE: 506.1 mcg./day MODE: simple continuous Bolus Given: No Estimated HUBERT: 10 months [place] alarm date: 05/26/2018 ASSESSMENT: No change in spasticity noted after the last ITB rate decrease. Will continue to decrease his rate in preparation for pump replacement surgery with likely revision. [facility] will help decrease the ITB rate. An [...] Timmy Perkins MD. -Please fax note to [facility]; ATTN: Leeanne Brown RN. F/U: ; alarm date 05/26/2018 Alejandrina Garcia PA-C CNOV Observed: 03/02/2018 Status: COMPLETED Source: [place] 9:45 AM [facility] REPOSITORY Office Visit (NEMSMN) KRISS MICHAEL ([id number]) 1980 M Date Time Provider Department 03/02/18 [...] at home: no; has IO waiver through [employer] [place] ; 2 aides one day [...] accessed using the needle included in the SolFocus catheter access kit. At one point, 2ml [...] Current Rate: 660 mcg/day MODE: simple continuous [place] Residual: 26 ml Actual Residual: na ml Pump Refilled: No Program Change: decreased rate by 10% Drug: Lioresal Drug Concentration: 2000 mcg/ml NEW RATE: 595 mcg./day MODE: simple continuous Bolus Given: No Estimated HUBERT: 10 months [place] alarm date: 05/14/2018 ASSESSMENT: No diagnosis found. [...] Timmy Perkins MD. -Please fax note to [facility]; ATTN: Leeanne Brown RN. F/U: ITB f/u [...] mouth once jenni* BACLOFEN 2,000 MCG/ML INTRATH* SolFocus Refill Kit # 8566, * MICONAZOLE NITRATE [...] pain [G89.18] INVALID FOR* More... DVT prophylaxis [MNC8916] INVALID FOR* More... Clostridium difficile infection [B96.89] [...] 03/02/18 PROGRESS Observed: 03/02/2018 Status: COMPLETED Source: [place] 8:51 AM [facility] REPOSITORY HNO ID: [id number] Author: Alejandrina Gordillo (Champ) Jeremy Service: (none) Author Type: Physician Gate Services Supervisor Type: Progress Notes Filed: 03/02/2018 12:47 PM [...] at home: no; has IO waiver through [employer] of [place]; 2 aides one day [...] accessed using the needle included in the YouMailtronic catheter access kit. At one point, 2ml [...] Current Rate: 660 mcg/day MODE: simple continuous [place] Residual: 26 ml Actual Residual: na ml Pump Refilled: No Program Change: decreased rate by 10% Drug: Lioresal Drug Concentration: 2000 mcg/ml NEW RATE: 595 mcg./day MODE: simple continuous Bolus Given: No Estimated HUBERT: 10 months [place] alarm date: 05/14/2018 ASSESSMENT: No diagnosis found. [...] Timmy Perkins MD. -Please fax note to [facility]; ATTN: Leeanne Brown RN. F/U: ITB f/u add to Jeremy for Wednesday05/05/2018 at 2:30pm; alarm date 05/14/2018 Alejandrina Garcia PA-C BASIC METABOLIC Collected: 02/11/2018 Status: F Source: [place] PROFILE (BMP) 4:40 PM [facility] REPOSITORY Order Comment: Send Results To: PCP Reason for Laboratory Test Hypokalemia SEND RESULTS TO , , AND CHAMP AYALA FAX RESULTS TO @[phone] TYPE CODE TESTS RESULT OUT OF RANGE [...] GAP 8 Performed By: #### L500.2500 #### [facility] [address] [place], [address] DISCHARGE SUMMARY Observed: 02/08/2018 Status: F Source: [place] 3:02 PM [facility] REPOSITORY [facility] Medical Records Department [address] [place] [address] Discharge Summary 02/08/18 1441 MR#: [id number] Acct: [id number] Name: KRISS MICHAEL Rep #: [id number] : 1980 38 From: Palu OAKES PCP: Timmy Perkins MD Status: ADM IN Y Location: [place] [id number] <Paul Jackson - Last Filed: 02/08/18 14:41> [...] and had presence of pneumonia on chest [id number]-sqz-[id number]. This felt that he likely had another [...] Resume PEG tube feedings as directed by medical surgical tech. Discharge Activity: Return to Normal Activity Home [...] extremity spasms scheduled to be reviewed at [facility] 6. Chronic constipation 7. Seizure disorder Course: [...] Hrs Code Visit Inpatient E AND M: 72754 Disch Hosp 02/08/18 1455 <Electronically signed by Paul OAKES> Date Paul OAKES 02/08/18 1502<Electronically signed by Michael Posadas MD> Cosigner Signature (if applicable): Date Michael Posadas MD CC: CHAMP Jackson; Michael Posadas MD; Timmy Perkins MD Signed DISCHARGE INSTRUCTION Observed: 02/08/2018 Status: F Source: [place] 10:41 AM [facility] REPOSITORY [facility] Medical Records Department [address] [place] [address] Instructions for Home/Discharge Instructions 02/08/18 1039 MR#: [id number] Acct: [id number] Name: KRISS MICHAEL Rep #: [id number] : 1980 38 From: Paul OAKES PCP: [...] 02/08/2018 Status: F Source: [place] 4:40 AM [facility] REPOSITORY TYPE CODE TESTS RESULT OUT OF [...] Lymph 1.92 Performed By: #### L100.0100 #### [facility] [address] [place], [address] BASIC METABOLIC Collected: 02/08/2018 Status: F Source: [place] PROFILE (BMP) 4:40 AM [facility] REPOSITORY TYPE CODE TESTS RESULT OUT OF [...] Normal 7 Performed By: #### L500.2500 #### [facility] [address] [place], [address] PHOSPHORUS Collected: 02/08/2018 Status: F Source: [place] 4:40 AM [facility] REPOSITORY TYPE CODE TESTS RESULT OUT OF RANGE REFERENCE UNITS LAB L501.2300 2.5-4.9 mg/dL Low PHOS 2.0 Performed By: #### L501.2300, L501.5200 #### [facility] [address] [place], [address] MAGNESIUM Collected: 02/08/2018 Status: F Source: [place] 4:40 AM [facility] REPOSITORY TYPE CODE TESTS RESULT OUT OF RANGE REFERENCE UNITS LAB L501.5200 1.6-2.6 mg/dL Normal MG 1.6 Performed By: #### L501.2300, L501.5200 #### [facility] [address] [place], [address] 12 LEAD ELECTROCARDIOGRAM Observed: 02/07/2018 Status: F Source: [place] 7:46 AM [facility] REPOSITORY [facility] Cardiovascular Services [address] [place] [address] 12 Lead EKG 02/04/18 1430 MR#: [id number] Acct: [id number] Name: KRISS MICHAEL Rep #: [id number] : 1980 38 From: Maury Waite MD Attending Dr: Michael Posadas MD Status: ADM IN Ordering Dr: Derrick Pool MD Date: 02/04/18 Location: [facility] Sex: M C Admitted: 02/04/18 Test [...] ECG Confirmed by MARIANN VARGAS, MAURY ([id number]), online editor MICHELLE PERKINS ([id number]) on 02/07/2018 7:45:42 AM Referred By: BRUCE Confirmed By:MAURY WAITE MD 02/07/18 0745 Date Maury Waite MD CC: Michael Posadas MD; Timmy Perkins MD; Derrick Pool MD Signed CBC W/DIFF, AUTOMATED Collected: 02/06/2018 Status: F Source: [place] 5:20 AM [facility] REPOSITORY Order Comment: SPECIMEN OBTAINED FROM LINE [...] Lymph 1.04 Performed By: #### L100.0100 #### [facility] [address] [place], [place], [address] BASIC METABOLIC Collected: 02/06/2018 Status: F Source: [place] PROFILE (BMP) 5:20 AM [facility] REPOSITORY Order Comment: SPECIMEN OBTAINED FROM LINE [...] Normal 5 Performed By: #### L500.2500 #### [facility] [address] [place], [address] CHEST PA AND LATERAL Observed: 02/06/2018 Status: F Source: [place] 12:00 AM [facility] REPOSITORY [facility] Imaging Services [address] [place] [address] Chest PA and Lateral MR#: [id number] Acct: [id number] Name: KRISS MICHAEL Rep #: [id number] : 1980 M 38 From: John Chavez MD PCP: Timmy Perkins MD Status: ADM IN Study: Chest PA and Lateral Date of Exam: 02/06/18 Exam# [id number] Ordering Dr: Paul Jackson STUDY: X-RAY CHEST [...] 10:15 EST , Service support , CC: CHAPM Jackson; Timmy Perkins MD Stock Preparation Operator: Signed Observed: 02/05/2018 Status: F Source: [place] RESPIRATORY PANEL 11:01 AM [facility] MOLECULAR REPOSITORY RP PANEL ADENOVIRUS Not Detected [...] acid amplification Performed By: #### M100.638 #### [facility] [address] [place], [address] ABDOMEN SINGLE VIEW Observed: 02/05/2018 Status: F Source: [place] (PORTABLE) 10:38 AM [facility] REPOSITORY [facility] Imaging Services [address] [place] [address] Abdomen Single View (Portable) MR#: [id number] Acct: [id number] Name: KRISS MICHAEL Rep #: [id number] : 1980 M 38 From: Jaylin Servin MD PCP: Timmy Perkins MD Status: ADM IN Study: Abdomen Single View (Portable) Date of Exam: 02/05/18 Exam# [id number] Ordering Dr: Paul Jackson STUDY: X-RAY - [...] , CC: CHAMP Jackson; Timmy Perkins MD Stock Preparation Operator: Signed CBC W/DIFF, AUTOMATED Collected: 02/05/2018 Status: F Source: [place] 5:20 AM [facility] REPOSITORY Order Comment: SPECIMEN OBTAINED FROM LINE [...] Lymph 1.46 Performed By: #### L100.0100 #### [facility] [address] [place], [address] BASIC METABOLIC Collected: 02/05/2018 Status: F Source: [place] PROFILE (BMP) 5:20 AM [facility] REPOSITORY Order Comment: SPECIMEN OBTAINED FROM LINE [...] GAP 3 Performed By: #### L500.2500 #### [facility] [address] [place], [address] HISTORY AND PHYSICAL Observed: 02/04/2018 Status: F Source: [place] EXAM 7:10 PM [facility] REPOSITORY [facility] Medical Records Department [address] [place] [address] History and Physical 02/04/18 1700 MR#: [id number] Acct: [id number] Name: KRISS MICHAEL Rep #: [id number] : 1980 38 From: Paul OAKES PCP: Timmy Perkins MD Status: ADM IN Y Location: [place] [id number] <Paul Jackson - Last Filed: 02/04/18 17:00> [...] surgeon that installed it next week at [facility]. He has chronic LE edema - family states this is not worse than normal. He has not been in the hospital since August/September. [] Past Medical History Past Medical History [...] DVT ppx: lovenox DC planning: Parents are cow puncher caregivers. This patient was seen by Paul [...] per his G-tube. Inpatient E AND M: 80630 Subs Hosp L3 02/04/18 1718 <Electronically signed by Paul OAKES> Date Paul OAKES 02/04/18 191<Electronically signed by Barry Young MD> Cosigner Signature: Date (if applicable) Barry Young MD CC: CHAMP Jackson; Timmy Perkins MD; Barry Young MD Signed URINALYSIS, COMPLETE Collected: 02/04/2018 Status: F Source: [place] 5:25 PM [facility] REPOSITORY Order Comment: Order Date: 02/04/18 Has pt arrived? Y How was Urine Obtained? PACKAGE CLERK TO SPECIFY TYPE CODE TESTS RESULT OUT [...] 0-5 SEEN Performed By: #### L400.0001 #### [facility] [address] [place], [place], [address] Observed: 02/04/2018 Status: F Source: [place] LEGIONELLA ANTIGEN 5:25 PM [facility] URINE REPOSITORY Interface Comments: using sample from er Legionella, UR Legionella Antigen result interpretation: Negative Presumptive negative for Legionella pneumophila serogroup 1 antigen in urine, suggesting no recent or current infection. Legionella Ag, Urine Negative (See interpretation below) Performed By: #### M300.4500 #### [facility] [address] [place], [place], [address] STREP Observed: 02/04/2018 Status: F Source: [place] PNEUMONIAE ANTIG(UR,CSF) 5:25 PM [facility] REPOSITORY Interface Comments: using sample from ER [...] interpretation below) Performed By: #### M300.4600 #### [facility] [address] [place], [address] Observed: 02/04/2018 Status: F Source: [place] CULTURE, URINE 5:25 PM [facility] REPOSITORY Order Date: 02/04/18 Has pt arrived? Y Urine Culture There are no CLSI standards for interpretation of this Drug/Organism combination. ORGANISM 1: Enterococcus faecalis [place] Count 1000-10,000 ORGANISM 2: Corynebacterium species [place] Count 1000-10,000 Enterococcus faecalis: REACTION Ampicillin $ <=2 S Benzylpenicillin NF 2 S Ciprofloxacin $ 1 S Gentamicin SYN-S S Levofloxacin $ 1 S Linezolid $$$$ 2 S Nitrofurantoin $ <=16 S Streptomycin $ SYN-S S Tetracycline NF <=1 S Vancomycin $ 2 S (NF) indicates non-formulary drug at [facility]. Approval by Infectious Disease Specialist required before non-formulary drugs may be ordered and/or dispensed. * CLSI guidelines does not recommend testing of cephalosporins. This interpretation is deduced from Beta-lactam/penicillin results. Performed By: #### M100.0650 #### [facility] [address] [facility] [address] Observed: 02/04/2018 Status: F Source: [place] CULTURE, BLOOD (WB) 4:45 PM [facility] REPOSITORY BC No growth in 5 days. Performed By: #### M200.1000 #### [facility] [address] [facility] [address] EMERGENCY DEPARTMENT Observed: 02/04/2018 Status: F Source: [place] SUMMARY 4:33 PM [facility] REPOSITORY [facility] Medical Records Department [address] [place] [address] Emergency Department Summary 02/04/18 1631 MR#: [id number] Acct: [id number] Name: KRISS MICHAEL Rep #: [id number] : 1980 38 From: Derrick Pool MD [...] I spoke with his neurologist at the [facility]. He recommended oral baclofen if needed. This was relayed to the hospitalist. Treatment Plan: [] Disposition: Admit Impression: Sepsis, community-acquired pneumonia This note was generated with Horrance dictation software. It may contain incorrect words, [...] your Primary Care Provider. Call [facility] ([phone]) or report to the closest Emergency Room. Call 911 if necessary. 02/04/18 1426 <Electronically signed by Derrick Pool MD> Date Derrick Pool MD Cosigner Signature (If Indicated): Date CC: Timmy Perkins MD CBC W/DIFF, AUTOMATED Collected: 02/04/2018 Status: F Source: [place] 3:20 PM [facility] REPOSITORY TYPE CODE TESTS RESULT OUT OF [...] Lymph 1.31 Performed By: #### L100.0100 #### [facility] [place], [address] COMPREHENSIVE METABOLIC Collected: 02/04/2018 Status: F Source: [place] PROFIL 3:20 PM [facility] REPOSITORY TYPE CODE TESTS RESULT OUT OF [...] Normal 7 Performed By: #### L500.4050 #### [facility] [address] [place], [address] LACTIC ACID Collected: 02/04/2018 Status: F Source: [place] 3:20 PM [facility] REPOSITORY Order Comment: Yes/No query for Sepsis Lactate Rule Y TYPE CODE TESTS RESULT OUT OF RANGE REFERENCE UNITS LAB L503.6005 0.4-2.0 mmol/L Normal LACTIC ACID 1.8 Performed By: #### L503.6005 #### [facility] [address] [place], [address] PROTHROMBIN TIME W/INR Collected: 02/04/2018 Status: F Source: [place] 3:20 PM [facility] REPOSITORY TYPE CODE TESTS RESULT OUT OF RANGE REFERENCE UNITS LAB L300.4150 11.7-14.9 SECONDS Normal PROTIME 14.5 LAB L300.4200 Normal INR 1.1 Performed By: #### L300.3900, L300.4310 #### [facility] [address] [place], [address] PARTIAL THROMBOPLAST Collected: 02/04/2018 Status: F Source: [place] TIME 3:20 PM [facility] REPOSITORY TYPE CODE TESTS RESULT OUT OF RANGE REFERENCE UNITS LAB L300.4310 24.1-36.2 Seconds Normal PTT 33.8 Performed By: #### L300.3900, L300.4310 #### [facility] [address] [place], [address] Observed: 02/04/2018 Status: F Source: [place] CULTURE, BLOOD (WB) 3:20 PM [facility] REPOSITORY BC No growth in 5 days. Performed By: #### M200.1000 #### [facility] [address] [place], [address] CHEST 1 VIEW Observed: 02/04/2018 Status: F Source: [place] (PORTABLE) 2:07 PM [facility] REPOSITORY [facility] Imaging Services [address] [place] [address] Chest 1 View (Portable) MR#: [id number] Acct: [id number] Name: KRISS MICHAEL Rep #: [id number] : 1980 M 38 From: Jaylin Servin MD PCP: Timmy Perkins MD Status: REG ER Study: Chest 1 View (Portable) Date of Exam: 02/04/18 Exam# [id number] Ordering Dr: Derrick Pool MD STUDY: X-RAY CHEST REASON FOR EXAM: Male, 38 years old. Baclofen pump malfunctioning [place] TECHNIQUE: Single AP portable view of the chest. COMPARISON: September 19, 2017 chest x-ray FINDINGS: Study is nearly nondiagnostic. The lungs are underexpanded there are bilateral perihilar ground glass opacities. There is tubing or possible Port-A-Cath overlying the right mid chest. RAD/Chest 1 View (Portable) IMPRESSION: Nearly nondiagnostic study. Bilateral pulmonary infiltrates consider atelectasis and/or edema. Electronically Signed: Jaylin Servin MD at 15:03 EST Tel , Service support , CC: Timmy Perkins MD; Derrick Pool MD Stock Preparation Operator: Signed CBC W/DIFF, AUTOMATED Collected: 01/12/2018 Status: F Source: [place] 1:11 PM [facility] REPOSITORY TYPE CODE TESTS RESULT OUT OF [...] Lymph 1.72 Performed By: #### L100.0100 #### [facility] [address] [place], [place], [address] BASIC METABOLIC Collected: 01/12/2018 Status: F Source: [place] PROFILE (BMP) 1:11 PM [facility] REPOSITORY Order Comment: Comments: STANDING ORDER TYPE [...] GAP 4 Performed By: #### L500.2500 #### [facility] [place], [address] CBC W/DIFF, AUTOMATED Collected: 12/16/2017 Status: F Source: [place] 10:30 AM [facility] REPOSITORY Order Comment: Order Date: 12/15/16 Order [...] 1.84 Performed By: #### L100.0100, L500.2500 #### [facility] [address] [place], [place], [address] BASIC METABOLIC Collected: 12/16/2017 Status: F Source: [place] PROFILE (BMP) 10:30 AM [facility] REPOSITORY Order Comment: Order Date: 12/15/16 Order Info: 0667-1 - [facility] TYPE CODE TESTS RESULT OUT OF RANGE [...] 2 Performed By: #### L100.0100, L500.2500 #### [facility] [address] [place], [address] PROGRESS Observed: 11/22/2017 Status: COMPLETED Source: [place] 1:24 PM [facility] REPOSIT[facility] HNO ID: [id number] Author: Duarte Bower) Bridger Service: (none) Author [...] Gonzalez and has home refills performed by [facility]. He originally had IT baclofen pump placed [...] 800 Units intramuscularly every 3 months. At [facility] sennosides (SENNA) 8.8 mg/5 mL syrup Take 5 mL by mouth once daily as needed. lactulose (DUPHALAC, CONSTULOSE) 10 gram/15 mL solution Take 7.5 g by mouth once daily as needed. potassium chloride 20 mEq/15 mL solution Take 20 mEq by mouth once daily as needed. baclofen, LIORESAL, (LIORESAL) 2,000 mcg/mL injection [employer] Refill Kit # 8566, Lioresal 2000 mcg/ml, [...] BMI 33.40 kg/m? Constitutional: obese, wheelchair-bound Skin: [place], warm, dry, no lesions or rashes Head, [...] MD CNOV Observed: 11/22/2017 Status: COMPLETED Source: [place] 1:00 PM [facility] REPOSITORY Office Visit (NRESMN) KRISS MICHAEL ([id number]) 1980 M Date Time Provider Department 11/22/17 [...] Gonzalez and has home refills performed by [facility]. He originally had IT baclofen pump placed [...] 800 Units intramuscularly every 3 months. At [facility] sennosides (SENNA) 8.8 mg/5 mL syrup [...] BMI 33.40 kg/m? Constitutional: obese, wheelchair-bound Skin: [place], warm, dry, no lesions or rashes Head, [...] mouth once jenni* BACLOFEN 2,000 MCG/ML INTRATH* You[employer] Refill Kit # 8566, * MICONAZOLE NITRATE [...] pain [G89.18] INVALID FOR* More... DVT prophylaxis [XBG6990] INVALID FOR* Priority: J More... Clostridium difficile [...] Priority: I More... Visit Notes: >> Alfredo Larsen) RE Montano WedNov 22, 2017 12:21 PM Status: Signed Intake information documented in the prior visit with Estefania Gonzalez MD today. Alfredo Montano RN Encounter Status:Closed by DUARTE MARCH MD on 11/23/17 CNOV Observed: 11/22/2017 Status: COMPLETED Source: [place] 12:00 PM [facility] REPOSITORY Office Visit (NEMSMN) KRISS MICHAEL ([id number]) 1980 M Date Time Provider Department 11/22/17 [...] pump. He has home refills performed by [facility]. -The patient was diagnosed with pneumonia in [...] at home: no; has IO waiver through [employer] of ; 2 aides one day [...] Assistance Required: Manual wheelchair Gait is: NA [place] Ambulation Index (AI) score = 9 restricted to wheelchair, unable to self transfer Patient ID verified using 2 identifiers: Yes Procedure: ITB pump reading without adjustment Current Drug: Lioresal Drug Concentration: 2000 mcg/ml Current Rate: 734.1 mcg/day MODE: simple continuous [place] Residual: 26.1 ml Actual Residual: NA Pump Refilled: No Program Change: No Drug: Lioresal Drug Concentration: 2000 mcg/ml NEW RATE: 734.1 mcg./day MODE: simple continuous Bolus Given: No Estimated HUBERT: 12 months [place] alarm date: 01/21/2018 ASSESSMENT: (G80.9) Infantile cerebral [...] MD. -Please fax note and printout to [facility]; ATTN: Leeanne Brown RN. F/U: ITB f/u 2 weeks after surgery; Continue home refills performed by [facility]. Next ITB refill is to be performed in late 12/2017. Estefania Gonzalez MD Referring Provider: ISSA PADRON [[id number]] Allergies As of Date: 11/22/2017 Noted Allergy [...] mouth once jenni* BACLOFEN 2,000 MCG/ML INTRATH* [employer] Refill Kit # 8566, * MICONAZOLE NITRATE [...] pain [G89.18] INVALID FOR* More... DVT prophylaxis [MYO2425] INVALID FOR* Priority: J More... Clostridium difficile [...] 11/22/17 [place] Observed: 11/22/2017 Status: COMPLETED Source: [place] 11:15 AM [facility] REPOSITORY Office Visit (NEMSMN) KRISS MICHAEL ([id number]) 1980 M Date Time Provider Department 11/22/17 [...] pleasure feeding by mouth lately, weight stable, [id number] lbs (vs. 155 lb at last visit) [...] parents: Yes Procedure confirmed with physician and patient support associate: Yes Personnel involved in the procedure: Physician: Issa Padron MD Gate Services Supervisor: Yue Huffman RN UNIVERSAL PROTOCOL / SAFETY [...] skin should be examined by a health acute care physical therapist to rule out infection. If you experience pain in the muscles injected over the next few days, you can take Tylenol to control the pain (unless contra-indicated). Please call our office at [phone] with any questions or concerns. 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 DVT prophylaxis [MCR0431] INVALID FOR* Priority: J More... Clostridium difficile [...] skin should be examined by a health acute care physical therapist to rule out infection. If you experience pain in the muscles injected over the next few days, you can take Tylenol to control the pain (unless contra-indicated). Please call our office at [phone] with any questions or concerns. Estefania Gonzalez MD Disposition: Return in about 3 months (around 02/22/2018) for Botox. Follow-up and Disposition History Recorded Letter Text Encounter Status:Closed by ISSA PADRON MD on 11/22/17 PROGRESS Observed: 11/22/2017 Status: COMPLETED Source: [place] 10:55 AM [facility] REPOSITORY O ID: [id number] Author: Issa Padron Service: (none) Author Type: [...] pleasure feeding by mouth lately, weight stable, [id number] lbs (vs. 155 lb at last visit) [...] parents: Yes Procedure confirmed with physician and patient support associate: Yes Personnel involved in the procedure: Physician: Issa Padron MD Gate Services Supervisor: Yue Huffman RN UNIVERSAL PROTOCOL / SAFETY [...] MD PROGRESS Observed: 11/22/2017 Status: COMPLETED Source: [place] 10:33 AM [facility] REPOSITORY HNO ID: [id number] Author: Estefania Gonzalez Service: (none) Author Type: [...] pump. He has home refills performed by [facility]. -The patient was diagnosed with pneumonia in [...] at home: no; has IO waiver through [facility]; 2 aides one day a wk each, [facility] [place] [facility] sends aides. Driving issues: NA [...] Assistance Required: Manual wheelchair Gait is: NA [place] Ambulation Index (AI) score = 9 restricted to wheelchair, unable to self transfer Patient ID verified using 2 identifiers: Yes Procedure: ITB pump reading without adjustment Current Drug: Lioresal Drug Concentration: 2000 mcg/ml Current Rate: 734.1 mcg/day MODE: simple continuous [place] Residual: 26.1 ml Actual Residual: NA Pump Refilled: No Program Change: No Drug: Lioresal Drug Concentration: 2000 mcg/ml NEW RATE: 734.1 mcg./day MODE: simple continuous Bolus Given: No Estimated HUBERT: 12 months [place] alarm date: 01/21/2018 ASSESSMENT: (G80.9) Infantile cerebral [...] MD. -Please fax note and printout to [facility]; ATTN: Leeanne Brown RN. F/U: ITB f/u 2 weeks after surgery; Continue home refills performed by [facility]. Next ITB refill is to be performed in late 12/2017. Estefania Gnozalez MD BASIC METABOLIC Collected: 11/18/2017 Status: F Source: VAN PROFILE (BMP) 11:30 AM [facility] REPOSITORY TYPE CODE TESTS RESULT OUT OF [...] GAP 4 Performed By: #### L500.2500 #### [facility] [place], [address] CBC W/DIFF, AUTOMATED Collected: 10/21/2017 Status: F Source: VAN 10:15 AM [facility] REPOSITORY Order Comment: CBCD ORDERED BY DR [...] Lymph 1.57 Performed By: #### L100.0100 #### [facility] [address] [place], [address] BASIC METABOLIC Collected: 10/21/2017 Status: F Source: VAN PROFILE (BMP) 10:15 AM [facility] REPOSITORY Order Comment: CBCD ORDERED BY DR [...] GAP 9 Performed By: #### L500.2500 #### [facility] [address] [place], [address] CARDIOLOGY VISIT Observed: 10/06/2017 Status: F Source: VAN REPORT 11:45 AM [facility] REPOSITORY [facility] [address] [place] [address] OFFICE VISIT Date of Service: 10/05/17 MR#: [id number] Acct: [id number] Name: KRISS MICHAEL Rep #: [id number] : 1980 Provider: SRINIVAS Lara Age/Sex: 37/M Location: [facility] [place] [place] Status: Signed HPI HPI Details: KRISS MICHAEL, [...] which was normal. He was admitted to [facility] emergency department in August 2017 for increased [...] Pressure 118/68 Intake Visit Reasons: Sepsis Pneumonia Director Data Required: No Accompanied by: Mother Is patient [...] 1. Edema, unspecified type R60.9 Plan - REYNA Escobar His echocardiogram in August 2015 showed ejection [...] on edema. Plan Detail Additional Comments - REYNA Escobar Discussed the above patient with Dr. Waite, [...] 10/06/17 1110 <Electronically signed by Timmy Lara VOCATIONAL EDUCATION TEACHER-C> Date Timmy Lara VOCATIONAL EDUCATION TEACHER-C 10/06/17 1145<Electronically signed by Maury Waite MD> Cosigner Signature: Date (if applicable) Maury Waite MD CC: Timmy Perkins MD Observed: 09/29/2017 Status: F Source: VAN CDIFF (MOLECULAR) 5:18 PM [facility] REPOSITORY Cdiff-Molecular Normal Reference Range = Negative C. Diff DNA Positive-Toxigenic C. Difficile DNA Detected NAAT METHOD Testing was performed using nucleic acid amplification Performed By: #### M100.6796, M100.637 #### [facility] [address] [place] [address], [id number] Observed: 09/29/2017 Status: F Source: VAN ENTERIC PATHOGEN 5:18 PM [facility] PANEL STOOL REPOSITORY EP PANEL STOOL Normal [...] Detected Performed By: #### M100.6796, M100.637 #### [facility] [address] [place], [place], [address] BASIC METABOLIC Collected: 09/24/2017 Status: F Source: VAN PROFILE (BMP) 11:00 AM [facility] REPOSITORY TYPE CODE TESTS RESULT OUT OF [...] GAP 3 Performed By: #### L500.2500 #### [facility] [address] [facility] [place], [address] DISCHARGE SUMMARY Observed: 09/20/2017 Status: F Source: VAN 3:54 PM [facility] REPOSITORY [facility] Medical Records Department [address] [place] [address] Discharge Summary 09/20/17 1400 MR#: [id number] Acct: [id number] Name: KRISS MICHAEL Rep #: [id number] : 1980 37 From: Paul OAKES PCP: Timmy Perkins MD Status: DIS IN Y Location: [facility] [id number] <Paul Jackson - Last Filed: 09/20/17 14:00> [...] who is completely dependent on his mothers cow puncher care 2/2 cerebral palsy, noncommunicative, also with [...] down his tube feedings and had the medical surgical tech manage his feedings. He did well with [...] He will need to follow-up with his chemical process operator, gas and oil checker, and his PCP in 1-2 weeks. This patient was seen by Paul Jackson PA-C under the supervision of Doctor Alexandre. [] Discharge Diet: - - Resume PEG [...] weeks Please Follow Up With: Timmy Lara VOCATIONAL EDUCATION TEACHER-C When: As directed Please Follow Up With: [...] days. He is to follow-up with his chemical process operator and gas and oil checker as well as primary care doctor. Mother [...] DISCHARGE INSTRUCTION Observed: 09/20/2017 Status: F Source: [place] 1:19 PM [facility] REPOSITORY [facility] Medical Records Department [address] [place] [address] Instructions for Home/Discharge Instructions 09/20/17 1143 MR#: [id number] Acct: [id number] Name: KRISS MICHAEL Rep #: [id number] : 1980 37 From: Paul OAKES PCP: [...] legs daily, elevate legs as tolerated. Per medical surgical tech: Rec continue current tf - would flush [...] BASIC METABOLIC Collected: 09/20/2017 Status: F Source: VAN PROFILE (BMP) 5:10 AM [facility] REPOSITORY Order Comment: SPECIMEN OBTAINED FROM LINE [...] GAP 8 Performed By: #### L500.2500 #### [facility] [address] [place], [address] CBC W/DIFF, AUTOMATED Collected: 09/20/2017 Status: F Source: [place] 5:10 AM [facility] REPOSITORY Order Comment: SPECIMEN OBTAINED FROM LINE [...] Lymph 1.12 Performed By: #### L100.0100 #### [facility] [address] [place], [place], [address] BASIC METABOLIC Collected: 09/19/2017 Status: F Source: [place] PROFILE (BMP) 6:30 PM [facility] REPOSITORY Order Comment: LINE DRAW TYPE CODE [...] GAP 4 Performed By: #### L500.2500 #### [facility] [address] [place], [address] CHEST 1 VIEW Observed: 09/19/2017 Status: F Source: [place] (PORTABLE) 6:46 AM [facility] REPOSITORY [facility] Imaging Services [address] [place] [address] Chest 1 View (Portable) MR#: [id number] Acct: [id number] Name: KRISS MICHAEL Rep #: [id number] : 1980 M 37 From: Siddharth Benavides MD PCP: Timmy Perkins MD Status: ADM IN Study: Chest 1 View (Portable) Date of Exam: 09/19/17 Exam# [id number] Ordering Dr: Jacek Monsalve MD STUDY: X-RAY [...] Service support , CC: Jacek Monsalve MD; Timmy Perkins MD Stock Preparation Operator: Signed CBC W/DIFF, AUTOMATED Collected: 09/19/2017 Status: F Source: VAN 5:40 AM [facility] REPOSITORY Order Comment: SPECIMEN OBTAINED FROM LINE [...] Lymph 1.04 Performed By: #### L100.0100 #### [facility] [place], [address] BASIC METABOLIC Collected: 09/19/2017 Status: F Source: VAN PROFILE (BMP) 5:40 AM [facility] REPOSITORY Order Comment: SPECIMEN OBTAINED FROM LINE [...] GAP 6 Performed By: #### L500.2500 #### [facility] [address] [facility] [place], [place], [address] MAGNESIUM Collected: 09/19/2017 Status: F Source: VAN 5:40 AM [facility] REPOSITORY Order Comment: Comments: OK TO ADD ON TYPE CODE TESTS RESULT OUT OF RANGE REFERENCE UNITS LAB L501.5200 1.6-2.6 mg/dL Normal MG 2.2 Performed By: #### L501.5200 #### [facility] [address] [place], [address] ABDOMEN SINGLE VIEW Observed: 09/18/2017 Status: F Source: VAN 10:50 AM [facility] REPOSITORY [facility] Imaging Services [address] [place] [address] Abdomen Single View MR#: [id number] Acct: [id number] Name: KRISS MICHAEL Rep #: [id number] : 1980 M 37 From: Edis Dhaliwal MD PCP: Timmy Perkins MD Status: ADM IN Study: Abdomen Single View Date of Exam: 09/18/17 Exam# [id number] Ordering Dr: Fiona Samayoa MD STUDY: X-RAY [...] CC: Fiona Samayoa MD; Timmy Perkins MD Stock Preparation Operator: Signed VANCOMYCIN, TROUGH Collected: 09/18/2017 Status: F Source: VAN LEVEL 10:09 AM [facility] REPOSITORY Order Comment: Time Medication is to [...] (Ventilator/Healtcare Associated) -Sepsis PLEASE CONTACT PHARMACY SERVICES (#[id number]) FOR INTERPRETATION OF RESULTS. Performed By: #### L501.8820 #### [facility] [address] [place], [address] MAGNESIUM Collected: 09/18/2017 Status: F Source: [place] 10:09 AM [facility] REPOSITORY Order Comment: Comments: as add on test TYPE CODE TESTS RESULT OUT OF RANGE REFERENCE UNITS LAB L501.5200 1.6-2.6 mg/dL Normal MG 2.1 Performed By: #### L501.5200 #### [facility] [address] [place], [address] CONSULTATION Observed: 09/18/2017 Status: F Source: [place] 5:34 AM [facility] REPOSITORY [facility] Medical Records Department [address] [facility] [place] [address] Consultation 09/17/17 0825 MR#: [id number] Acct: [id number] Name: KRISS MICHAEL Rep #: [id number] : 1980 37 From: Jacek Monsalve MD PCP: Timmy Perkins MD Status: ADM IN Location: [place] [id number] Problem List (1) Severe sepsis Status: Acute [...] me from previous admissions, who presented to [facility] on 09/16/2017 secondary to concern for aspiration [...] prognosis. Code Visit Inpatient E AND M: 52811 Init Hosp L3 09/18/17 0534 <Electronically signed by Jacek Monsalve MD> Date Jacek Monsalve MD Cosigner Signature (if applicable): Date CC: Jacek Monsalve MD; Timmy Perkins MD Signed BASIC METABOLIC Collected: 09/17/2017 Status: F Source: VAN PROFILE (BMP) 4:40 PM [facility] REPOSITORY TYPE CODE TESTS RESULT OUT OF [...] Normal 5 Performed By: #### L500.2500 #### [facility] [address] [place], [address] BASIC METABOLIC Collected: 09/17/2017 Status: F Source: VAN PROFILE (BMP) 4:15 AM [facility] REPOSITORY TYPE CODE TESTS RESULT OUT OF [...] Normal 6 Performed By: #### L500.2500 #### [facility] [address] [place], [place], [address] VENOUS BLOOD GAS Collected: 09/16/2017 Status: F Source: [place] 11:41 PM [facility] REPOSITORY TYPE CODE TESTS RESULT OUT OF [...] 27 ISTAT Performed By: #### L9000.0810 #### [facility] [place] [address] [place] [address] CBC W/DIFF, AUTOMATED Collected: 09/16/2017 Status: F Source: VAN 8:55 PM [facility] REPOSITORY TYPE CODE TESTS RESULT OUT OF [...] Lymph 1.04 Performed By: #### L100.0100 #### [facility] [address] [facility] [address] [place], [place], [address] BASIC METABOLIC Collected: 09/16/2017 Status: F Source: VAN PROFILE (BMP) 8:55 PM [facility] REPOSITORY TYPE CODE TESTS RESULT OUT OF [...] Performed By: #### L500.2500, L501.2300, L501.5200 #### [facility] [address] [place], [place], [address] PHOSPHORUS Collected: 09/16/2017 Status: F Source: VAN 8:55 PM [facility] REPOSITORY TYPE CODE TESTS RESULT OUT OF RANGE REFERENCE UNITS LAB L501.2300 2.5-4.9 mg/dL Normal PHOS 3.5 Performed By: #### L500.2500, L501.2300, L501.5200 #### [facility] [address] [place], [address] MAGNESIUM Collected: 09/16/2017 Status: F Source: [place] 8:55 PM [facility] REPOSITORY TYPE CODE TESTS RESULT OUT OF RANGE REFERENCE UNITS LAB L501.5200 1.6-2.6 mg/dL Normal MG 1.7 Performed By: #### L500.2500, L501.2300, L501.5200 #### [facility] [address] [place], [address] LACTIC ACID Collected: 09/16/2017 Status: F Source: [place] 8:55 PM [facility] REPOSITORY TYPE CODE TESTS RESULT OUT OF RANGE REFERENCE UNITS LAB L503.6005 0.4-2.0 mmol/L Normal LACTIC ACID 1.0 Performed By: #### L503.6005 #### [facility] [address] [place], [address] M R STAPH AUREUS Collected: 09/16/2017 Status: F Source: [place] DNA BY PCR 8:40 PM [facility] REPOSITORY TYPE CODE TESTS RESULT OUT OF RANGE REFERENCE UNITS LAB L8200.1100 Negative Normal MRSA Negative RESULT Performed By: #### L8200.1000 #### [facility] [address] [place], [address] CHEST 1 VIEW Observed: 09/16/2017 Status: F Source: VAN (PORTABLE) 8:09 PM [facility] REPOSITORY [facility] Imaging Services [address] [place] [address] Chest 1 View (Portable) MR#: [id number] Acct: [id number] Name: KRISS MICHAEL Rep #: [id number] : 1980 M 37 From: Luis Carlos Smith MD PCP: Timmy Perkins MD Status: ADM IN Study: Chest 1 View (Portable) Date of Exam: 09/16/17 Exam# [id number] Ordering Dr: Fredo Slaughter MD STUDY: X-RAY [...] CC: Timmy Perkins MD; Fredo Slaughter MD Stock Preparation Operator: Signed URINALYSIS, ROUTINE Collected: 09/16/2017 Status: F Source: [place] (DIPSTICK) 8:00 PM [facility] REPOSITORY Order Comment: How was Urine Obtained? PACKAGE CLERK TO SPECIFY TYPE CODE TESTS RESULT OUT [...] LEUK Normal ESTERASE Negative Performed By: #### L400.2010 #### [facility] [address] [place], [address] Observed: 09/16/2017 Status: F Source: VAN LEGIONELLA ANTIGEN 8:00 PM [facility] URINE REPOSITORY Legionella, UR Legionella Antigen result interpretation: Negative Presumptive negative for Legionella pneumophila serogroup 1 antigen in urine, suggesting no recent or current infection. Legionella Ag, Urine Negative (See interpretation below) Performed By: #### M300.4500 #### [facility] [address] [place] [address], [address] Observed: 09/16/2017 Status: F Source: VAN CULTURE, URINE 8:00 PM [facility] REPOSITORY Urine Culture Culture exhibits no growth. Performed By: #### M100.0650 #### [facility] [address] [place], [place] [address], [address] HISTORY AND PHYSICAL Observed: 09/16/2017 Status: F Source: VAN EXAM 5:58 PM [facility] REPOSITORY [facility] Medical Records Department [address] [place] [address] History and Physical 09/16/17 1749 MR#: [id number] Acct: [id number] Name: KRISS MICHAEL Rep #: [id number] : 1980 37 From: Torey James DO [...] * Family inquired about being transferred to [facility] rather than staying here. I informed them that I am certainly comfortable with patient staying here with his pneumonia and cerebral palsy. Though I did leave that up to the family if they would prefer to stay here rather than go to [facility] since I brought that up. They stated [...] with. Code Visit Inpatient E AND M: 86732 Init Hosp L3 09/16/17 3613 <Electronically signed by Torey James DO> Date Torey James DO Cosigner Signature: Date (if applicable) CC: Torey James DO; Timmy Perkins MD Signed EMERGENCY DEPARTMENT Observed: 09/16/2017 Status: F Source: VAN SUMMARY 4:52 PM [facility] REPOSITORY [facility] Medical Records Department [address] [place] [address] Emergency Department Summary 09/16/17 1611 MR#: [id number] Acct: [id number] Name: KRISS MICHAEL Rep #: [id number] : 1980 37 From: Dario De La [...] cerebral palsy This note was generated with CRMnextation software. It may contain incorrect words, spelling, [...] problems, contact your Primary Care Provider. Call [facility] ([phone]) or report to the closest Emergency Room. Call 911 if necessary. 09/16/17 1652 <Electronically signed by Dario De La Torre MD> Date Dario De La Torre MD Cosigner Signature (If Indicated): Date CC: Timmy Perkins MD CBC W/DIFF, AUTOMATED Collected: 09/16/2017 Status: F Source: VAN 4:15 PM [facility] REPOSITORY TYPE CODE TESTS RESULT OUT OF [...] Lymph 1.82 Performed By: #### L100.0100 #### [facility] [address] [place], [address] BASIC METABOLIC Collected: 09/16/2017 Status: F Source: [place] PROFILE (BMP) 4:15 PM [facility] REPOSITORY TYPE CODE TESTS RESULT OUT OF [...] Normal 6 Performed By: #### L500.2500 #### [facility] [address] [facility] [place], [address] LACTIC ACID Collected: 09/16/2017 Status: F Source: [place] 4:15 PM [facility] REPOSITORY Order Comment: Yes/No query for Sepsis Lactate Rule Y TYPE CODE TESTS RESULT OUT OF REFERENCE UNITS RANGE LAB L503.6005 0.4-2.0 mmol/L High LACTIC ACID 2.6 Result Comment: Critical Result(s) Called at: 16:51:51 09/16/2017 by: Valentine FREDERICK Performed By: #### L503.6005 #### [facility] [address] [place], [address] Observed: 09/16/2017 Status: F Source: [place] CULTURE, BLOOD (WB) 4:15 PM [facility] REPOSITORY BC No growth in 5 days. Performed By: #### M200.1000 #### [facility] [address] [place], [place], [address] CHEST PA AND LATERAL Observed: 09/16/2017 Status: F Source: [place] 3:31 PM [facility] REPOSITORY [facility] Imaging Services [address] [place] [address] Chest PA and Lateral MR#: [id number] Acct: [id number] Name: KRISS MICHAEL Rep #: [id number] : 1980 M 37 From: Luis Carlos Smith MD PCP: Timmy Perkins MD Status: REG ER Study: Chest PA and Lateral Date of Exam: 09/16/17 Exam# [id number] Ordering Dr: Dario De La Torre MD [...] Perkins MD; Dario De La Torre MD Stock Preparation Operator: Signed CARDIOLOGY VISIT Observed: 09/07/2017 Status: F Source: [place] REPORT 9:42 AM [facility] REPOSITORY [facility] [address] [facility] [place] [address] OFFICE VISIT Date of Service: 09/07/17 MR#: [id number] Acct: [id number] Name: KRISS MICHAEL Rep #: [id number] : 1980 Provider: Maury Waite MD Age/Sex: 37/M Location: [facility] [place] [place] Status: Signed HPI HPI Chief Complaint: Follow-up [...] brachial Intake Visit Reasons: 6 M FU Director Data Required: No Is patient in pain?: No [...] QDAY #90 tab 09/07/17 [Rx Confirmed 09/07/17] PFSH Medical History Nonrheumatic mitral valve prolapse [...] stockings have asked him to go to [facility] to get measured for appropriate pressurized and [...] Other Medications 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: 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) Coding Level of Care Code Off vis,est,level 4 Diagnoses Edema R60.9 Coding Level of Care Code Off vis,est,level 4 Diagnoses Edema R60.9 09/07/17 0942 <Electronically signed by Maury Waite MD> Date Maury Waite MD Cosigner Signature: Date (if applicable) CC: Timmy Perkins MD PROGRESS Observed: 08/17/2017 Status: COMPLETED Source: [place] 11:03 AM [facility] REPOSITORY HNO ID: [id number] Author: Estefania Gonzalez Service: (none) Author Type: [...] will eat seldom (pleasure feedings), weight stable, [id number] lbs Driving issues: N/A Safety concerns regarding [...] botox shots Procedure confirmed with physician and patient support associate: Yes Personnel involved in the procedure: Physician: Estefania Gonzalez MD Gate Services Supervisor: Alejandrina Morse RN UNIVERSAL PROTOCOL / SAFETY [...] MD CNOV Observed: 08/17/2017 Status: COMPLETED Source: [place] 11:00 AM [facility] REPOSITORY Office Visit (NEMSMN) KRISS MICHAEL ([id number]) 1980 M Date Time Provider Department 08/17/17 [...] skin should be examined by a health acute care physical therapist to rule out infection. If you experience pain in the muscles injected over the next few days, you can take Tylenol to control the pain (unless contra-indicated). Please call our office at [phone] with any questions or concerns. 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 DVT prophylaxis [MOB4379] INVALID FOR* Priority: J More... Clostridium difficile [...] skin should be examined by a health acute care physical therapist to rule out infection. If you experience pain in the muscles injected over the next few days, you can take Tylenol to control the pain (unless contra-indicated). Please call our office at [phone] with any questions or concerns. Estefania Gonzalez MD Disposition: Return in 3 months (on 11/23/2017) for Repeat botox injections on 11/23/17 at 11 am. Follow-up and Disposition History Recorded Encounter Status:Closed by ESTEFANIA GONZALEZ MD on 08/18/17 BASIC METABOLIC Collected: 07/22/2017 Status: F Source: [place] PROFILE (BMP) 3:15 PM [facility] REPOSITORY TYPE CODE TESTS RESULT OUT OF [...] GAP 6 Performed By: #### L500.2500 #### [facility] [address] [place], [place], [address] CBC W/DIFF, AUTOMATED Collected: 07/22/2017 Status: F Source: [place] 3:15 PM [facility] REPOSITORY TYPE CODE TESTS RESULT OUT OF [...] Lymph 1.33 Performed By: #### L100.0100 #### [facility] [address] [place], [address] PT D/C SUMMARY (1) Observed: 05/31/2017 Status: F Source: [place] 2:36 PM [facility] REPOSITORY [facility] Physical Therapy [facility] [address] [place], [place] [address] Fax REHABILITATION SERVICES DISCHARGE SUMMARY MR#: [id number] Acct: [id number] Name: KRISS MICHAEL Rep #: [id number] : 1980 37 From: Yuko Mckeon DPT Referring Dr.: Timmy Perkins MD Status: REG RCR Insurance: [facility] [employer] [place] - PT D/C Summary [...] please feel free to call me at [phone]. Thank you for the referral of this patient. Sincerely, Yuko Mckeon <Electronically signed by Yuko Mckeon DPT> 05/31/17 1436 CC: Timmy Perkins MD ELR Signed EMERGENCY DEPARTMENT Observed: 05/30/2017 Status: F Source: [place] SUMMARY 4:45 PM [facility] REPOSITORY [facility] [facility] Medical Records Department [address] [place] [address] Emergency Department Summary 05/30/17 1316 MR#: [id number] Acct: [id number] Name: KRISS MICHAEL Rep #: [id number] : 1980 37 From: Victor M Huff [...] failure sepsis This note was generated with Horrance dictation software. It may contain incorrect words, [...] your Primary Care Provider. Call [facility] ([phone]) or report to the closest Emergency Room. Call 911 if necessary. 05/30/17 1645 <Electronically signed by Victor M Huff MD> Date Victor M Huff MD Cosigner Signature (If Indicated): Date CC: Timmy Perkins MD DISCHARGE INSTRUCTION Observed: 05/30/2017 Status: F Source: [place] 3:32 PM [facility] REPOSITORY [facility] Medical Records Department [address] [place] [address] Discharge Instruction 05/30/17 1531 MR#: [id number] Acct: [id number] Name: KRISS MICHAEL Rep #: [id number] : 1980 37 From: Victor M Huff [...] your Primary Care Provider. Call [facility] ([phone]) or report to the closest Emergency Room. Call 911 if necessary. 05/30/17 1532 <Electronically signed by Victor M Huff MD> Date Victor M Huff MD Cosigner Signature (If Indicated): Date CC: Timmy Perkins MD Observed: 05/30/2017 Status: F Source: [place] STREP A (THROAT 2:10 PM [facility] RAPID ALFRED) REPOSITORY Order Date: 05/30/17 Has pt arrived? Y Strep A Rapid Rapid Strep A Screen NEGATIVE A Disk (Conf. Cult) Beta Hemolytic Strep NOT Group A : All NEGATIVE screens will be confirmed with a culture. ORGANISM 1: Streptococcus group B Performed By: #### M100.676 #### [facility] [address] [place], [address] URINALYSIS, COMPLETE Collected: 05/30/2017 Status: F Source: [place] 2:05 PM [facility] REPOSITORY Order Comment: Order Date: 05/30/17 Has [...] URINE SEEN Performed By: #### L400.0001 #### [facility] [address] [place], [address] Observed: 05/30/2017 Status: F Source: [place] CULTURE, URINE 2:05 PM [facility] REPOSITORY Order Date: 05/30/17 Comments: A straight cath Has pt arrived? Y Urine Culture Culture exhibits no growth. Performed By: #### M100.0650 #### [facility] [address] [place], [address] CBC W/DIFF, AUTOMATED Collected: 05/30/2017 Status: F Source: [place] 1:48 PM [facility] REPOSITORY TYPE CODE TESTS RESULT OUT OF [...] Lymph 1.47 Performed By: #### L100.0100 #### [facility] [address] [place], [address] BASIC METABOLIC Collected: 05/30/2017 Status: F Source: [place] PROFILE ([facility]) 1:48 PM [facility] REPOSITORY TYPE CODE TESTS RESULT OUT OF [...] Normal 8 Performed By: #### L500.2500 #### [facility] [address] [place], [address] LACTIC ACID Collected: 05/30/2017 Status: F Source: [place] 1:48 PM [facility] REPOSITORY Order Comment: Yes/No query for Sepsis Lactate Rule Y TYPE CODE TESTS RESULT OUT OF RANGE REFERENCE UNITS LAB L503.6005 0.4-2.0 mmol/L Normal LACTIC ACID 1.1 Performed By: #### L503.6005 #### [facility] [address] [place], [address] CHEST 1 VIEW Observed: 05/30/2017 Status: F Source: [place] (PORTABLE) 1:16 PM [facility] REPOSITORY [facility] Imaging Services [address] [place] [address] Chest 1 View (Portable) MR#: [id number] Acct: [id number] Name: KRISS MICHAEL Rep #: [id number] : 1980 M 37 From: Tony Bryan PCP: Timmy Perkins MD Status: REG ER Study: Chest 1 View (Portable) Date of Exam: 05/30/17 Exam# [id number] Ordering Dr: Victor M Huff MD STUDY: [...] No acute cardiopulmonary disease. Electronically Signed: Tony BryanDO at 14:17 EDT , Service support , CC: MD J Luis Huff; Timmy Perkins MD Stock Preparation Operator: Signed PROGRESS Observed: 05/13/2017 Status: COMPLETED Source: [place] 4:54 PM [facility] REPOSITORY HNO ID: [id number] Author: Regino Rivers Service: (none) Author Type: (none) Type: Progress Notes Filed: 05/13/2017 4:55 PM Note Text: Faxed Office note to PCP to fax number [phone] PROGRESS Observed: 05/11/2017 Status: COMPLETED Source: [place] 1:09 PM [facility] REPOSITORY HNO ID: [id number] Author: Sai Sterling MD Service: (none) Author Type: Resident Type: Progress Notes Filed: 05/11/2017 2:19 PM Note Text: BOTULINUM TOXIN THERAPY - Informed consent was signed on 08/03/12 The patient was accompanied by his parents and radhaeMorenita. Sai Sterling MD, resident physician performed the [...] will eat seldom (pleasure feedings), weight stable, vadiid349 lbs Driving issues: N/A Safety concerns regarding [...] botox shots Procedure confirmed with physician and patient support associate: Yes Personnel involved in the procedure: Physician: Estefania Gonzalez MD and Sai Sterling MD, resident physician Gate Services Supervisor: Yue Huffman RN UNIVERSAL PROTOCOL / SAFETY [...] MD CNOV Observed: 05/11/2017 Status: COMPLETED Source: [place] 1:00 PM [facility] REPOSITORY Office Visit (NEMSMN) SHABBIR MICHAELKRYSTAL Loreto ([id number]) 1980 M Date Time Provider Department 05/11/17 [...] skin should be examined by a health acute care physical therapist to rule out infection. If you experience pain in the muscles injected over the next few days, you can take Tylenol to control the pain (unless contra-indicated). Please call our office at [phone] with any questions or concerns. MD Sai [...] will eat seldom (pleasure feedings), weight stable, gilffe074 lbs Driving issues: N/A Safety concerns regarding [...] botox shots Procedure confirmed with physician and patient support associate: Yes Personnel involved in the procedure: Physician: Estefania Gonzalez MD and Sai Sterling MD, resident physician Gate Services Supervisor: Yue Huffman RN UNIVERSAL PROTOCOL / SAFETY [...] with patient: 52 mn. Estefania Gonzalez MD Regino Collins Sec 05/13/2017 4:55 PM Signed Faxed Office note to PCP to fax number [phone] Referring Provider: ESTEFANIA GONZALEZ [[id number]] Allergies As of Date: 05/11/2017 Noted Allergy [...] Visit Diagnosis:Cerebral palsy, unspecified type (HCC) [G80.9] Prescriptions as of 05/11/2017 Sig: LORAZEPAM [...] pain [G89.18] INVALID FOR* More... DVT prophylaxis [KCM5146] INVALID FOR* Priority: J More... Clostridium difficile [...] skin should be examined by a health acute care physical therapist to rule out infection. If you experience pain in the muscles injected over the next few days, you can take Tylenol to control the pain (unless contra-indicated). Please call our office at [phone] with any questions or concerns. Estefania Gonzalez MD Disposition: Return in about 3 months (around 08/11/2017) for Repeat botox injections in 3 months. Follow-up and Disposition History Recorded Encounter Status:Closed by ESTEFANIA GONZALEZ MD on 05/11/17 CNCO Observed: 05/06/2017 Status: COMPLETED Source: [place] 12:00 AM [facility] REPOSITORY Letter Text ESTEFANIA GONZALEZ MD [facility]/U [address] [place], [place] [address] May 06, 2017 RE: Kriss Michael [address] [place] [address] [place] [address] CCF #: [id number] Case Reference #: N/A To Whom It May Concern: Mr. Kriss Michael is under my care at the [facility] for treatment of severe spasticity [...] F Source: [place] NO DIFF 12:05 PM [facility] REPOSITORY TYPE CODE TESTS RESULT OUT OF [...] MPV 10.5 Performed By: #### L100.0500 #### [facility] [address] [place], [address] BASIC METABOLIC Collected: 05/04/2017 Status: F Source: [place] PROFILE (BMP) 12:05 PM [facility] REPOSITORY TYPE CODE TESTS RESULT OUT OF [...] GAP 7 Performed By: #### L500.2500 #### [facility] [address] [place], [address] INITAL EVALUATION (1) Observed: 04/22/2017 Status: F Source: [place] - PT 2:42 PM [facility] REPOSITORY [facility] Physical Therapy [facility] [address] [place] [address] Fax REHABILITATION SERVICES INITIAL EVALUATION MR#: [id number] Acct: [id number] Name: KRISS MICHAEL Rep #: [id number] : 1980 37 From: Yuko Mckeon DPT Referring Dr.: Timmy Perkins MD Status: REG RCR Insurance: [employer] MEDICAID Patient's Visit Information KRISS MICHAEL is a 37 year old M referred to Physical Therapy by Timmy GARCIA with a diagnosis of CP. 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 Diagnosis of CP- traumatic with major oxygen [...] in space w/c currently with an IV warp hanger. Does have anti-tip. Is unable to [...] to be FAXED BACK to us at [phone] for Medicare purposes. Please let me know if there are questions or concerns regarding this plan of care. Physician Signature: Date: <Electronically signed by Yuko Mckeon DPT> 04/22/17 1442 CC: Timmy Perkins MD ELStacy Signed For Medicare only, by signing this I certify the plan of care. Physicians Signature Date 12 LEAD ELECTROCARDIOGRAM Observed: 04/09/2017 Status: F Source: [place] 10:35 AM [facility] REPOSITORY [facility] Cardiovascular Services [address] [place] [address] [place] [address] 12 Lead EKG 04/07/17 2311 MR#: [id number] Acct: [id number] Name: KRISS MICHAEL Rep #: [id number] : 1980 37 From: Dominic Pichardo MD Attending Dr: Status: [facility] ER Ordering Dr: Trevor Rae MD Date: [...] ECG Confirmed by ENRIKE VARGAS, DOMINIC ([id number]), online editor MICHELLE PERKINS ([id number]) on 04/09/2017 10:35:20 AM Referred By: KYRA Confirmed By:DOMINIC PICHARDO MD 04/09/17 1035 Date Dominic Pichardo MD CC: Timmy Perkins MD; Trevor Rae MD Signed DISCHARGE INSTRUCTION Observed: 04/08/2017 Status: F Source: [place] 12:29 AM [facility] Medical Records Department [address] [place] [address] Discharge Instruction 04/08/17 0028 MR#: [id number] Acct: [id number] Name: KRISS MICHAEL Rep #: [id number] : 1980 37 From: Trevor Rae MD [...] problems, contact your Primary Care Provider. Call [facility] ([phone]) or report to the closest Emergency Room. Call 911 if necessary. 04/08/17 0029 <Electronically signed by Trevor Rae MD> Date Trevor Rae MD Cosigner Signature (If Indicated): Date CC: Timmy Perkins MD EMERGENCY DEPARTMENT Observed: 04/08/2017 Status: F Source: [place] SUMMARY 12:28 AM [facility] REPOSITORY [facility] Medical Records Department [address] [place] [address] Emergency Department Summary 04/08/17 0023 MR#: [id number] Acct: [id number] Name: KRISS MICHAEL Rep #: [id number] : 1980 37 From: Trevor Rae MD [...] tachycardia resolved This note was generated with Horrance dictation software. It may contain incorrect words, [...] your Primary Care Provider. Call [facility] ([phone]) or report to the closest Emergency Room. Call 911 if necessary. 04/08/17 0028 <Electronically signed by Trevor Rae MD> Date Trevor Rae MD Cosigner Signature (If Indicated): Date CC: Timmy Perkins MD URINALYSIS, COMPLETE Collected: 04/07/2017 Status: F Source: [place] 11:45 PM [facility] REPOSITORY Order Comment: How was Urine Obtained? [...] URINE SEEN Performed By: #### L400.0001 #### [facility] [address] [place], [place], [address] Observed: 04/07/2017 Status: F Source: [place] CULTURE, BLOOD (WB) 11:35 PM [facility] REPOSITORY BC No growth in 5 days. Performed By: #### M200.1000 #### [facility] [address] [place], [address] CBC W/DIFF, AUTOMATED Collected: 04/07/2017 Status: F Source: [place] 11:25 PM [facility] REPOSITORY TYPE CODE TESTS RESULT OUT OF [...] Lymph 1.79 Performed By: #### L100.0100 #### [facility] [address] [place], [place], [address] COMPREHENSIVE METABOLIC Collected: 04/07/2017 Status: F Source: [place] [facility] 11:25 PM [facility] REPOSITORY TYPE CODE TESTS RESULT OUT OF [...] 5 Performed By: #### L500.4050, L501.2450 #### [facility] [address] [place], [address] LIPASE Collected: 04/07/2017 Status: F Source: [place] 11:25 PM [facility] REPOSITORY TYPE CODE TESTS RESULT OUT OF REFERENCE UNITS RANGE LAB L501.2450 73-393 U/L High LIPASE 482 Performed By: #### L500.4050, L501.2450 #### [facility] [address] [place], [address] LACTIC ACID Collected: 04/07/2017 Status: F Source: [place] 11:25 PM [facility] REPOSITORY Order Comment: Yes/No query for Sepsis Lactate Rule Y TYPE CODE TESTS RESULT OUT OF RANGE REFERENCE UNITS LAB L503.6005 0.4-2.0 mmol/L Normal LACTIC ACID 1.0 Performed By: #### L503.6005 #### [facility] [address] [place], [address] Observed: 04/07/2017 Status: F Source: [place] INFLUENZA A+B (RAPID 11:15 PM [facility] [place]FRED) REPOSITORY FLU A/B Rapid Negative test results should be confirmed by culture. Order Rapid Viral Culture for Influenzae A+B (682016) if clinically indicated. Influenza Ag, Direct Presumptive NEGATIVE for Influenza A/B Antigen (See Note) Performed By: #### M101.0101 #### [facility] [address] [place], [address] CHEST 1 VIEW Observed: 04/07/2017 Status: F Source: [place] (PORTABLE) 10:56 PM [facility] REPOSITORY [facility] Imaging Services [address] [place] [address] Chest 1 View (Portable) MR#: [id number] Acct: [id number] Name: KRISS MICHAEL Rep #: [id number] : 1980 M 37 From: Edis Dhaliwal MD PCP: Timmy Perkins MD Status: PRE ER Study: Chest 1 View (Portable) Date of Exam: 04/07/17 Exam# [id number] Ordering Dr: Trevor Rae MD STUDY: X-RAY [...] CC: Timmy Perkins MD; Trevor Rae MD Stock Preparation Operator: Signed ALLERGIES ALLERGIES DATE TYPE / CODE NAME / CODE REACTION SEVERITY SOURCE 03/18/19 Drug cisapride Rash Unknown [place] 19 Allergy/404721578 monohydrate/F0000 [facility] (ImalogixOMED CT) [address](RXNORM) Hospital Repository 03/18/19 Drug morphine/Z7202978 hallucinations Unknown [place] 19 Allergy/844919827 45(RXNORM) [facility] (SNOMED CT) Hospital Repository 03/18/19 Drug codeine/Z96021761 hallucinations Unknown [place] 19 Allergy/378924258 0(RXNORM) [facility] (SNOMED CT) Hospital Repository 03/18/19 Drug metronidazole/F00 Rash Unknown [place] 19 Allergy/175364929 5486221(RXNORM) [facility] (SNOMED CT) Hospital Repository 03/18/19 Miscellaneous dust Other Unknown [place] 19 Allergy/191072645 [facility] (OMED CT) Hospital Repository 05/31/19 Drug vancomycin/V41587 renal failure Unknown [place] 18 Allergy/752939094 4866(RXNORM) [facility] (SNOMED CT) Hospital Repository 05/09/19 DRUG METRONIDAZOLE HCL RASH [place] 15 INGREDI/767740657 [facility] (SNOMED CT) [place] Repository 02/08/20 DRUG/925703512(SN PROPULSID RASH [place] [address]) [facility] [place] Repository 06/23/19 DRUG CODEINE OTHER: SEE C [place] 06 INGREDI/284274059 [facility] (SNOMED CT) [place] Repository 06/23/19 DRUG MORPHINE OTHER: SEE C [place] 06 INGREDI/903860242 [facility] (SNOMED CT) [place] Repository ENCOUNTERS ENCOUNTERS ADMIT/DISCHARGE ACCOUNT ADMITTING ENCOUNTER LOCATION SOURCE NUMBER CLASS 03/18/2018/03/18/19 [id number] Ambulatory BMSBuilding:Dandy Allison [facility] Repository 03/14/2018 [id number] Ambulatory [facility] ing:LABSPEC Repository 03/07/2018/03/08/19 [id number] Ambulatory [address] Repository 03/07/2018/03/11/19 [id number] Ambulatory [address] Repository 03/02/2018/03/02/19 [id number] Ambulatory [address] Repository 03/02/2018/03/03/19 [id number] Ambulatory [address] Repository 02/11/2018 [id number] Ambulatory [facility] ing:LABSPEC Repository 02/04/2018 [id number] [place], Ambulatory BMSBuilding:Dandy Car MS.[facility] Repository 02/04/2018 [id number] [place], Ambulatory BMSBuilding:Dandy Car [facility] Repository 02/04/2018 [id number] [place], Ambulatory BMSBuilding:Dandy Car MS.[facility] Repository 02/04/2018 [id number] Br[place]onis, Ambulatory BMSBuilding:Dandy Car [facility] Repository 02/04/2018 [id number] [place], Ambulatory BMSBuilding:Dandy Car MS.[facility] Repository 02/04/2018/02/09/20 [id number] [place], Inpatient [place] Monik Car Encounter [facility] ing:PCURoom: Repository WWT440Hbf: 1 01/12/2018 [id number] Ambulatory [facility] Hospital ing:LABSPEC Repository 12/16/2017 [id number] Ambulatory [facility] Hospital ing:LABSPEC Repository 11/22/2017/11/24/19 [id number] Ambulatory [address] Repository 11/22/2017/11/23/19 [id number] Ambulatory [address] Repository 11/22/2017/11/25/19 [id number] Ambulatory [address] Repository 11/18/2017 [id number] Ambulatory [facility] ing:LABSPEC Repository 10/21/2017 [id number] Ambulatory [facility] ing:LABSPEC Repository 10/05/2017/10/06/19 [id number] Ambulatory BMSBuilding:B [place] 18 [facility] Repository 09/29/2017 [id number] Ambulatory [facility] Hospital ing:LABSPEC Repository 09/24/2017 [id number] Ambulatory [facility] Hospital ing:LABSPEC Repository 09/16/2017 [id number] Torey James Ambulatory BMSBuilding:Dandy Araujo MS.[facility] Repository 09/16/2017 [id number] Torey James Ambulatory BMSBuilding:B [place].[facility] Repository 09/16/2017 [id number] Torey James Ambulatory BMSBuilding:B [place] [facility] Repository 09/16/2017/09/21/19 [id number] Torey James Inpatient [address] ing:PCURoom: Repository [id number]: 1 09/16/2017/09/21/19 [id number] Ambulatory BMSBuilding:W [place] 18 [facility] Repository 09/16/2017 [id number] Torey James Ambulatory BMSBuilding:B [place] [facility] Repository 09/16/2017 [id number] Torey James Ambulatory BMSBuilding:Dandy Araujo MS.CF.[facility] Repository 09/16/2017 [id number] Ambulatory BMSBuilding:B [place] MS.WIP [facility] Hospital Repository 09/07/2017/09/08/19 [id number] Ambulatory BMSBuilding:B [place] 18 MS.WHG [facility] Repository 08/20/2017 [id number] Ambulatory [facility] Hospital ing:MEDOUTP Repository 08/20/2017 [id number] Ambulatory [facility] ing:RAD.FUTUR Repository E 08/17/2017/08/19/19 [id number] Ambulatory [address] Repository 07/22/2017 [id number] [facility] Repository 05/30/2017/05/31/19 [id number] Emergency [address] ing:ED Repository 05/11/2017/05/15/19 [id number] Ambulatory [address] Repository 05/04/2017 [id number] Ambulatory [facility] Hospital ing:LABSPEC Repository 04/22/2017/04/23/19 [id number] Ambulatory [address] ing:PT Repository 04/07/2017/04/08/19 [id number] Emergency [address] ing:ED Repository PAYERS PAYERS ENCOUNTER GUARANTOR PAYER SUBSCRIBER SOURCE 03/18/2018 CHRISTOPHER C Primary RAY SPROSTY [place] [id number] ADDISON Insurance:ANTHEMPolic IIIDOB: [place] Number: [id number] Hospital 19[address]Xor: (462) [id number] Repository [phone] () Date:8588-22-06VS[address] [address]FX: 03/18/2018 Secondary CHRISTOPHER C Van Insurance:MEDICAIDPol SPROSTYDOB: [facility] Number: [id number] Hospital [id number] Repository Date:2017-09-07 03/18/2018 Tertiary NOT GIVENUNK [place] Insurance:SELF PAY Community INSURANCEPolicy Hospital Number: Effective Repository Date:2018-03-18 03/14/2018 CHRISTOPHER C Primary RAY SPROSTY Van [id number] ANGELA Insurance:ANTHEMPolic IIIDOB: [facility] cel[place] y Number: [id number] Hospital [address]Swf: (330 [id number] Repository [phone] () Date:9343-92-36TS [address] [place] [address]16[address]ZT: 03/14/2018 Secondary CHRISTOPHER C Van Insurance:MEDICAIDPol SPROSTYDOB: [facility] icy Number: [id number] Hospital [id number] Repository Date:2018-03-14 03/14/2018 Tertiary NOT GIVENUNK [place] Insurance:SELF PAY [facility] Number: Effective Repository Date:2018-03-14 02/11/2018 CHRISTOPHER C Primary RAY SPROSTY Van [id number] [place]ELA Insurance:ANTHEMPolic IIIDOB: [facility] [place] y Number: [id number] Hospital 655[address]Upl: (330) [id number] Repository [phone] () Date:8562-64-88XN [address] [place] [address]LR: 02/11/2018 Secondary CHRISTOPHER C Van Insurance:MEDICAIDPol SPROSTYDOB: [facility] icy Number: [id number] Hospital [id number] Repository Date:2018-02-11 02/11/2018 Tertiary NOT GIVENUNK [place] Insurance:SELF PAY [facility] Hospital Number: Effective Repository Date:2018-02-11 02/04/2018 CHRISTOPHER C Primary RAY SPROSTY Van [id number] ANGELA Insurance:ANTHEMPolic IIIDOB: [facility] [place] y Number: [id number] Hospital 318[address]Ilu: (330 [id number] Repository [phone] () Date:9954-48-95JI [id number] [place] [address]EC: 02/04/2018 Secondary CHRISTOPHER C [place] Insurance:MEDICAIDPol SPROSTYDOB: Community icy Number: [id number] Hospital [id number] Repository Date:2018-02-04 02/04/2018 Tertiary NOT GIVENUNK [place] Insurance:SELF PAY [facility] Number: Effective Repository Date:2018-02-04 02/04/2018 CHRISTOPHER C Primary RAY SPROSTY [place] [id number] ANGELA Insurance:ANTHEMPolic IIIDOB: Community [place] Number: [id number] Hospital [address]Dfu: (330 [id number] Repository [phone] () Date:1868-37-83IP [address] [place] [address] [place] [address]HO: 02/04/2018 Secondary CHRISTOPHER C [place] Insurance:MEDICAIDPol SPROSTYDOB: Community icy Number: [id number] Hospital [id number] Repository Date:2018-02-04 02/04/2018 Tertiary NOT GIVENUNK [place] Insurance:SELF PAY [facility] Number: Effective Repository Date:2018-02-04 02/04/2018 CHRISTOPHER C Primary RAY SPROSTY Van [id number] ANGELA Insurance:ANTHEMPolic IIIDOB: [facility] [place] Number: [id number] Hospital 401[address]Zsg: (330 [id number] Repository [phone] () Date:3817-11-53OP [address] [place] [address] [place] [address]IK: 02/04/2018 Secondary CHRISTOPHER C [place] Insurance:MEDICAIDPol SPROSTYDOB: Community icy Number: [id number] Hospital [id number] Repository Date:2018-02-04 02/04/2018 Tertiary NOT GIVENUNK [place] Insurance:SELF PAY [facility] Number: Effective Repository Date:2018-02-04 02/04/2018 CHRISTOPHER C Primary RAY SPROSTY [place] [id number] ANGELA Insurance:ANTHEMPolic [place]OB[place] Number: [id number] [facility] 77633Rha: (330 [id number] Repository [phone] () Date:4616-70-91OZ [address] [place] [address] 10285IV: 02/04/2018 Secondary CHRISTOPHER C [place] Insurance:MEDICAIDPol SPROSTYDOB: Community icy Number: [id number] Hospital [id number] Repository Date:2018-02-04 02/04/2018 Tertiary NOT GIVENUNK [place] Insurance:SELF PAY [facility] Number: Effective Repository Date:2018-02-04 02/04/2018 CHRISTOPHER C Primary RAY [place]OST[place] [id number] AN[place]ELA Insurance:ANTHEMPolic IIIDOB: [facility] celena PEPE y Number: [id number] Hospital 25226Fzn: (330 [id number] Repository [phone] () Date:0035-92-45OJ [address] [place] [address] 67862RR: 02/04/2018 Secondary CHRISTOPHER C [place] Insurance:MEDICAIDPol SPROSTYDOB: Community icy Number: [id number] Hospital [id number] Repository Date:2018-02-04 02/04/2018 Tertiary NOT GIVENUNK [place] Insurance:SELF PAY [facility] Number: Effective Repository Date:2018-02-04 02/04/2018 CHRISTOPHER C Primary RAY [place]OST[place] [id number] ANGELA Insurance:ANTHEMPolic IIIDOB[place] Number: [id number] Hospital 10616Rtt: (330 [id number] Repository [phone] () Date:0723-91-80OW [address] [place] [address] [place] [address]BQ: 02/04/2018 Secondary CHRISTOPHER C [place] Insurance:MEDICAIDPol SPROSTYDOB: Community icy Number: [id number] Hospital [id number] Repository Date:2018-02-04 02/04/2018 Tertiary NOT GIVENUNK [place] Insurance:SELF PAY [facility]: Effective Repository Date:2018-02-04 01/12/2018 CHRISTOPHER C Primary RAY [place]OST[place] [id number] [place] Insurance:ANTHEMPolic IIIDOB: Community [place] Number: [id number] Hospital 70246Uto: 330 [id number] Repository [phone] () Date:4095-78-11SG [address] [place] [address] 00975GD: 01/12/2018 Secondary CHRISTOPHER C [place] Insurance:MEDICAIDPol SPROSTYDOB: [facility] icy Number: [id number] Hospital [id number] Repository Date:2018-01-12 01/12/2018 Tertiary NOT GIVENUNK [place] Insurance:SELF PAY [facility] Number: Effective Repository Date:2018-01-12 12/16/2017 CHRISTOPHER C Primary RAY SPROSTY [place] [id number] [place]ELA Insurance:ANTHEMPolic IIIDOB: [facility] [place] Number: [id number] Hospital 89633Fdv: 330 [id number] Repository [phone] () Date:3209-15-21HS [address] [place] [address] 59283DB: 12/16/2017 Secondary CHRISTOPHER C [place] Insurance:MEDICAIDPol SPROSTYDOB: Community icy Number: [id number] Hospital [id number] Repository Date:2017-12-16 12/16/2017 Tertiary NOT GIVENUNK [place] Insurance:SELF PAY [facility] Number: Effective Repository Date:2017-12-16 11/18/2017 CHRISTOPHER C Primary RAY SPROST[place] [id number] [place] Insurance:ANTHEMPolic IIIDOB: [place] Number: [id number] [facility] 73956Nwf: (183) [id number] Repository [phone] () Date:5780-39-73DR [address] [place] [address] 84974FH: 11/18/2017 Secondary CHRISTOPHER C [place] Insurance:MEDICAIDPol SPROSTYDOB: Community icy Number: [id number] Hospital [id number] Repository Date:2017-11-18 11/18/2017 Tertiary NOT GIVENUNK [place] Insurance:SELF PAY [facility] Number: Effective Repository Date:2017-11-18 10/21/2017 CHRISTOPHER C Primary RAY SPROSTY [place] [id number] ANGELA Insurance:ANTHEMPolic IIIDOB: [place] Number: [id number] Hospital 35153Lsc: (251) [id number] Repository [phone] () Date:5148-01-13GT [address] [address]DW: 10/21/2017 Secondary CHRISTOPHER C [place] Insurance:MEDICAIDPol SPROSTYDOB: [facility] icy Number: [id number] Hospital [id number] Repository Date:2017-10-21 10/21/2017 Tertiary NOT GIVENUNK [place] Insurance:SELF PAY [facility] Number: Effective Repository Date:2017-10-21 10/05/2017 CHRISTOPHER C Primary RAY SPROSTY [place] [id number] [place] Insurance:ANTHEMPolic IIIDOB: [place] Number: [id number] Hospital 96112Ueo: 330 [id number] Repository [phone] () Date:3419-31-39PN [address] 164[address]YW: 10/05/2017 Secondary CHRISTOPHER C [place] Insurance:MEDICAIDPol SPROSTYDOB: Community icy Number: [id number] Hospital [id number] Repository Date:2017-09-20 10/05/2017 Tertiary NOT GIVENUNK [place] Insurance:SELF PAY [facility] Number: Effective Repository Date:2017-10-05 09/29/2017 CHRISTOPHER C Primary RAY SPROSTY [place] [id number] [place] Insurance:ANTHEMPolic IIIDOB: [place] Number: [id number] Hospital 72166Hnb: (330 [id number] Repository [phone] () Date:9087-80-95HI[address] [address]XZ: 09/29/2017 Secondary CHRISTOPHER C [place] Insurance:MEDICAIDPol SPROSTYDOB: Community icy Number: [id number] Hospital [id number] Repository Date:2017-09-29 09/29/2017 Tertiary NOT GIVENUNK [place] Insurance:SELF PAY [facility] Number: Effective Repository Date:2017-09-29 09/24/2017 CHRISTOPHER C Primary RAY SPROST[place] [id number] [place] Insurance:ANTHEMPolic [place]IDOB[place] Number: [id number] Hospital 13711Xxs: (330) [id number] Repository [phone] () Date:0623-42-75MD[address] [address]OJ: 09/24/2017 Secondary CHRISTOPHER C [place] Insurance:MEDICAIDPol SPROSTYDOB: Community icy Number: [id number] Hospital [id number] Repository Date:2017-09-24 09/24/2017 Tertiary NOT GIVENUNK [place] Insurance:SELF PAY [facility] Number: Effective Repository Date:2017-09-24 09/16/2017 CHRISTOPHER C Primary RAY [place]OST[place] [id number] [place] Insurance:ANTHEMPolic [place]IDOB: [place] Number: [id number] Hospital 53115Dsi: (330) [id number] Repository [phone] () Date:8227-30-51HV[address] [address]JM: 09/16/2017 Secondary CHRISTOPHER C [place] Insurance:MEDICAIDPol SPROSTYDOB: Community icy Number: [id number] Hospital [id number] Repository Date:2017-09-16 09/16/2017 Tertiary NOT GIVENUNK [place] Insurance:SELF PAY [facility] Number: Effective Repository Date:2017-09-16 09/16/2017 CHRISTOPHER C Primary RAY SPROSTY [place] [id number] [place] Insurance:ANTHEMPolic [place]IDOB: [place] Number: [id number] Hospital 17752Uyi: (330 [id number] Repository [phone] () Date:9701-15-69OT [address] [place] [address] 45578HL: 09/16/2017 Secondary CHRISTOPHER C [place] Insurance:MEDICAIDPol SPROSTYDOB: Community icy Number: [id number] Hospital [id number] Repository Date:2017-09-16 09/16/2017 Tertiary NOT GIVENUNK [place] Insurance:SELF PAY [facility] Number: Effective Repository Date:2017-09-16 09/16/2017 CHRISTOPHER C Primary RAY [place]OST[place] [id number] [place] Insurance:ANTHEMPolic IIIDOB: [place] Number: [id number] Hospital 12453Umn: (330 [id number] Repository [phone] () Date:5022-12-24FB [address] [place] [address] 86837BH: 09/16/2017 Secondary CHRISTOPHER C [place] Insurance:MEDICAIDPol SPROSTYDOB: Community icy Number: [id number] Hospital [id number] Repository Date:2017-09-16 09/16/2017 Tertiary NOT GIVENUNK [place] Insurance:SELF PAY [facility] Number: Effective Repository Date:2017-09-16 09/16/2017 CHRISTOPHER C Primary RAY SPROST[place] [id number] [place] Insurance:ANTHEMPolic IIIDOB: [place] Number: [id number] Hospital 17938Odn: (330 [id number] Repository [phone] () Date:8344-87-00RG [address], [place] [address]JP: 09/16/2017 Secondary CHRISTOPHER C [place] Insurance:MEDICAIDPol SPROSTYDOB: Community icy Number: [id number] Hospital [id number] Repository Date:2017-09-16 09/16/2017 Tertiary NOT GIVENUNK [place] Insurance:SELF PAY [facility] Number: Effective Repository Date:2017-09-16 09/16/2017 CHRISTOPHER C Primary RAY SPROSTY [place] [id number] [place]GEL[place] Insurance:ANTHEMPolic [place]IDOB[place] Number: [id number] Hospital 23762Kct: 330 [id number] Repository [phone] () Date:9950-18-97SF [address], [place] [address]LC: 09/16/2017 Secondary CHRISTOPHER C [place] Insurance:MEDICAIDPol SPROSTYDOB: Community icy Number: [id number] Hospital [id number] Repository Date:2017-09-16 09/16/2017 Tertiary NOT GIVENUNK [place] Insurance:SELF PAY [facility] Number: Effective Repository Date:2017-09-16 09/16/2017 CHRISTOPHER C Primary RAY SPROSTY [place] [id number] [place] Insurance:ANTHEMPolic IIIDOB: [place] Number: [id number] Hospital 33773Ife: 330 [id number] Repository [phone] () Date:8284-39-59DC [address] [place] [address] 71365SN: 09/16/2017 Secondary CHRISTOPHER C [place] Insurance:MEDICAIDPol SPROSTYDOB: Community icy Number: [id number] Hospital [id number] Repository Date:2017-09-16 09/16/2017 Tertiary NOT GIVENUNK [place] Insurance:SELF PAY [facility] Hospital Number: Effective Repository Date:2017-09-16 09/16/2017 CHRISTOPHER C Primary RAY SPROSTY [place] [id number] [place]GEL[place] Insurance:ANTHEMPolic IIIDOB: Community [place]BR[place] y Number: [id number] Hospital 60467Bcq: (330 [id number] Repository [phone] () Date:1696-44-48AR [address] [place] [address] 58770XA: 09/16/2017 Secondary CHRISTOPHER C [place] Insurance:MEDICAIDPol SPROSTYDOB: Community icy Number: [id number] Hospital [id number] Repository Date:2017-09-16 09/16/2017 Tertiary NOT GIVENUNK [place] Insurance:SELF PAY [facility] Number: Effective Repository Date:2017-09-16 09/16/2017 CHRISTOPHER C Primary RAY SPROSTY [place] [id number] [place] Insurance:ANTHEMPolic IIIDOB: Community cel[place] y Number: [id number] Hospital 83788Veg: (330) [id number] Repository [phone] () Date:6084-98-23QQ [address] [place] [address] 00390MK: 09/16/2017 Secondary CHRISTOPHER C [place] Insurance:MEDICAIDPol SPROSTYDOB: Community icy Number: [id number] Hospital [id number] Repository Date:2017-09-16 09/16/2017 Tertiary NOT GIVENUNK [place] Insurance:SELF PAY [facility] Number: Effective Repository Date:2017-09-16 09/07/2017 CHRISTOPHER C Primary RAY SPROSTY [place] [id number] [place] Insurance:ANTHEMPolic IIIDOB: [place] Number: [id number] Hospital 73967Ufl: (330 [id number] Repository [phone] () Date:0838-00-90LV [address], [place] [address]GL: 09/07/2017 Secondary CHRISTOPHER C [place] Insurance:MEDICAIDPol SPROSTYDOB: Community icy Number: [id number] Hospital [id number] Repository Date:2017-02-02 09/07/2017 Tertiary NOT GIVENUNK [place] Insurance:SELF PAY Community [facility] Number: Effective Repository Date:2017-02-02 08/20/2017 CHRISTOPHER C Primary RAY [place] [id number] [place] Insurance:ANTHEMPolic IIIUNK [place] Number: Hospital 19333Jvm: (330) [id number] Repository [phone] (HP) Date:7129-30-79PZ [address] [place] [address] 30532VQ: 08/20/2017 Secondary CHRISTOPHER C [place] Insurance:MEDICAIDPol SPROSTYDOB: Community icy Number: [id number] Hospital [id number] Repository Date:2017-08-19 08/20/2017 Tertiary NOT GIVENUNK [place] Insurance:SELF PAY Community [facility] Number: Effective Repository Date:2017-08-19 08/20/2017 CHRISTOPHER C Primary RAY SPROSTY [place] [id number] [place] Insurance:ANTHEMPolic IIIUNK [facility] [place] Number: Hospital 92692Wfg: (330) [id number] Repository [phone] () Date:4953-42-21RY [address] [place] [address] 73735HB: 08/20/2017 Secondary CHRISTOPHER C [place] Insurance:MEDICAIDPol SPROSTYDOB: Community icy Number: [id number] Hospital [id number] Repository Date:2017-08-20 08/20/2017 Tertiary NOT GIVENUNK [place] Insurance:SELF PAY [facility] Number: Effective Repository Date:2017-08-20 07/22/2017 CHRISTOPHER Primary RAY [place] [id number] [place] Insurance:ANTHEMPolic [place]UNK [place] Number: Hospital 43093Onl: [id number] Repository [phone] Date:4107-16-25YX [address] (HP) [address] [place] [address] 60550OG: 07/22/2017 Secondary CHRISTOPHER [place] Insurance:MEDICAIDPol SPROSTYDOB: Community icy Number: [id number] Hospital [id number] Repository Date:2017-07-22 07/22/2017 Tertiary NOT GIVENUNK [place] Insurance:SELF PAY Community [facility] Number: Effective Repository Date:2017-07-22 05/30/2017 CHRISTOPHER Primary RAY SPROSTY [place] [id number] [place] Insurance:[facility] [place] Number: Hospital 58262Ohy: [id number] Repository [phone] Date:2572-21-99EQ [address] () [id number] [place] [address] 83217JA: 05/30/2017 Secondary CHRISTOPHER [place] Insurance:MEDICAIDPol SPROSTYDOB: Community icy Number: [id number] Hospital [id number] Repository Date:2017-05-30 05/30/2017 Tertiary NOT GIVENUNK [place] Insurance:SELF PAY [facility] Number: Effective Repository Date:2017-05-30 05/04/2017 CHRISTOPHER Primary RAY SPROSTY [place] [id number] [place] Insurance:ANTHEMPolic IIIUNK [facility] [place] Number: [facility] 11944Zgk: [id number] Repository [phone] Date:9931-67-26XW [address] () [address] [place] [address] 71693QP: 05/04/2017 Secondary CHRISTOPHER [place] Insurance:MEDICAIDPol SPROSTYDOB: Community icy Number: [id number] Hospital [id number] Repository Date:2017-05-04 05/04/2017 Tertiary NOT GIVENUNK [place] Insurance:SELF PAY [facility] Number: Effective Repository Date:2017-05-04 04/22/2017 Christopher Primary RAY SPROSTY [place] [id number] [place] Insurance:ANTHEM [facility] [place] [facility] [address]Foj: Number: Repository [phone] [id number] 2 (HP) Date:2042-30-73IM [address] [place] [address] 24776ZW: 04/22/2017 Secondary Christopher [place] Insurance:MEDICAIDPol SprostyDOB: Community icy Number: [id number] Hospital [id number] Repository Date:2017-03-25 04/22/2017 Tertiary NOT GIVENUNK [place] Insurance:SELF PAY [facility] Number: Effective Repository Date:2017-04-20 04/07/2017 CHRISTOPHER Primary RAY SPROSTY [place] [id number] ADDISON Insurance:SAVANNAH IIIHERIBERTO [facility] 284[address]Fbv: Number: Repository [phone]- [id number] 2 (HP) Date:3330-87-43JZ [address], [place] [address]WG: 04/07/2017 Secondary CHRISTOPHER [place] Insurance:MEDICAIDPol SPROSTYDOB: Community icy Number: [id number] Hospital [id number] Repository Date:2017-04-07 04/07/2017 Tertiary NOT GIVENUNK [place] Insurance:SELF PAY [facility] Number: Effective Repository Date:2017-04-07
== END 2018-03-24 23:59 ==
LOC: LABSPEC 14:58
PROVIDERS: Family Provider Family Medicine; PCP Family Medicine; Referring Provider Internal Medicine Cardiovascular Disease; Visit Provider Internal Medicine Cardiovascular Disease
DX: Z41.9 Encounter for procedure for purposes other than remedying health state, unspecified (principal); R06.09 Other forms of dyspnea; Z01.810 Encounter for preprocedural cardiovascular examination; J69.0 Pneumonitis due to inhalation of food and vomit; J96.01 Acute respiratory failure with hypoxia
CPT/HCPCS: 80048

== ENCOUNTER 2018-07-14 07:05 | Observation (INO) | payer BC, MEDICAID, SELFPAY ==
[2018-07-12 06:01] VITALS: BMI 33.5
[2018-07-14] VITALS (33 sets, daily range): BP systolic 103–157; BP diastolic 58–110; PULSE 82–116; RESP 11–121; TEMP 36.2–37.4; O2SAT 93–99; BMI 33.3
--- NOTE | 2018-07-14 07:23 | ED.VISSUMM ---
- ER Visit Summary Date of Service: 07/14/18 Chief Complaint: Nausea and vomiting History of Present Illness: The patient is a 38 M with history of cerebral palsy. He has been home 2 weeks from a 3-month stay at [facility]. He developed aspiration pneumonia and got a trach after having a baclofen pump change. Family states he started vomiting yesterday. He was given 3 different doses of Zofran yesterday which seemed to help somewhat. He was vomiting again this morning and EMS was called. Mother does state that he did get tube feeds the lower right last night through his J-tube. She did check residuals in the J-tube. He also has a G-tube she did not check that. Physical Examination: Blood pressure is 106/80, temperature 99.1, heart rate 115, respiratory rate 28, pulse ox 95% on vent. Patient is lying in bed. He has contractures. Head neck examination reveals trach to be in place. He has mild bleeding of his tongue from his most recent vomiting episode. Heart is tachycardic and regular. Lung sounds are clear at the bases. Abdomen is soft no focal tenderness. GJ tube is in place. Test Results: Chest x-ray shows stable elevation of the right hemidiaphragm with stable increased lung markings in the bases. CBC was normal white count. Hemoglobin 10.5. Chemistry studies unremarkable. LFTs and lipase remarkable only for an alk phos of 193. Blood cultures were obtained. CT abdomen pelvis shows fecal material Luna's pouch. G-tube is in place in the stomach. I specifically called the radiologist and asked about the jejunum component of his GJ tube. The tube that is currently in place is coiled in the stomach only with no extension into the jejunum. Emergency Department Course and Treatment: Patient did vomit during my initial exam. G-tube was hooked up to suction. Patient has been given Zofran and IV fluids. Family states his GJ tube was initially placed on May 02 and replaced on May 18. I was able to find a CT report from [facility] on June 09. At that time they, the patient has a PEG tube in place with an NG. I am unable to visualize the images to know if the GJ tube is displaced from when he left [facility]. Mother has reportedly been giving tube feeds through the J port of his tube and he has not been vomiting up the tube feed material. Patient may have a viral gastroenteritis causing vomiting and it may not be related to the coiling of the GJ tube in his stomach. At this time I am unable to determine this. I spoke with our surgeon here. We do not have GJ tubes available to replace the current tube and it was recommended he go back to [facility]. I will speak with the transfer line. Treatment Plan: [] Disposition: Transfer Impression: 1. Vomiting, improved 2. GJ tube coiled in stomach This note was generated with [employer] dictation software. It may contain incorrect words, spelling, and punctuation that were not noted in review of the chart prior to signing ED Disposition - Plan for ED Patient: Referrals: Timmy Severino MD [Primary Care Provider] -
[2018-07-14] MEDS: Ondansetron 4 MG/2 ML Vial IV ×2 (08:12→10:02)
[2018-07-14] MEDS: 0.9% Normal Saline 1,000 ML 150 ML IV (08:12)
[2018-07-14 08:29] LABS: Absolute Lymphocyte Count 1.33 X10^3/ul (0.83-4.51); Absolute Neutrophil Count 5.6 X10^3/uL (2.0-7.7); Basophil# 0.02 X10^3/uL; Basophil% 0.3 % (0-1); Eosinophil# 0.14 X10^3/uL; Eosinophils% 1.8 % (0-5); Hematocrit 33.8 % (40-54); Hemoglobin 10.5 g/dl (13.0-16.5); Lymphocyte # 1.33 X10^3/ul (4.0); Lymphocyte % 16.9 % (19-41); Mean Corp Hgb Conc 31.1 g/gl (32-36); Mean Corpuscular Hgb 24.2 pg (27.0-32.0); Mean Corpuscular Volume 78.1 fL (80-94); Mean Platelet Vol. 10.2 fl (6.2-12.0); Monocyte# 0.77 X10^3/uL; Monocyte% 9.8 % (0-10); Neutrophil # 5.62 X10^3/uL (2.7-7.7); Neutrophil % 71.1 % (47-70); Platelet Count 184 K/mm3 (150-450); RBC Distribution Width SD 51.7 fl (35.1-43.9); Red Blood Count 4.33 M/mm3 (4.6-6.2); White Blood Count 7.9 K/mm3 (4.4-11.0)
[2018-07-14 08:30] LABS: POSITIVE COUNT NO; POSITIVE DIFFERENTIAL NO; POSITIVE MORPHOLOGY NO
--- NOTE | 2018-07-14 08:40 | RAD_ITS ---
STUDY: X-RAY CHEST REASON FOR EXAM: Male, 38 years old. Shortness of breath/dyspnea. TECHNIQUE: Single AP portable view of the chest. COMPARISON: Comparison is made with prior study dated February 06, 2018. FINDINGS: A tracheostomy tube is in situ. The tip is at 4.9 cm proximal to the clark. A right-sided portacatheter is seen with the tip in the right atrium. EKG electrodes are seen. Stable elevation of the right hemidiaphragm. Stable mild increased markings at the lung bases suggestive of atelectasis. There is no demonstrated pleural abnormality. Normal size heart. Normal mediastinum and rachelle. Normal visualized pulmonary arteries. Normal visualized aortic arch and descending thoracic aorta. Normal visualized thoracic spine. Normal visualized ribs, clavicles, and shoulders. A gastrostomy tube is seen within the stomach. RAD/Chest 1 View (Portable) IMPRESSION: Stable elevation of the right hemidiaphragm with stable mild increased linear markings at the lung bases. Electronically Signed: Matti Greer, at 9:30 EDT , Service support ,
[2018-07-14 08:50] LABS: AST(SGOT) 17 U/L (15-37); Alanine Aminotransfer ALT/SGPT 24 U/L (16-61); Albumin, Serum 2.8 g/dL (3.2-5.0); Alkaline Phosphatase 193 U/L (45-117); Anion Gap 5 (5-15); BUN 16 mg/dL (7-18); Bilirubin, Direct < 0.05 mg/dL (0.00-0.30); Calcium,Total 8.4 mg/dL (8.5-10.1); Chloride 99 mmol/L (98-107); Creatinine, Serum 0.36 mg/dL (0.70-1.30); EST Glomerular Filtration Rate 288 mL/min (>60); Est Glom Filt Rate - Afr Amer 348 mL/min (>60); Globulin 5.2 g/dL (2.2-4.2); Glucose 106 mg/dL (74-106); Lipase 147 U/L (73-393); Potassium 3.6 mmol/L (3.5-5.1); Sodium Level 137 mmol/L (136-145)
--- NOTE | 2018-07-14 08:53 | CT_ITS ---
STUDY: CT ABDOMEN AND PELVIS WITHOUT CONTRAST REASON FOR EXAM: Male, 38 years old. Vomiting. Gastrostomy tube in situ. Renal failure. Cerebral palsy. Prior colectomy. RADIATION DOSAGE (If Supplied By Facility): CTDIvol = ( 15.51 ) mGy, DLP = ( 747.64 ) mGycm TECHNIQUE: Transaxial images were obtained from the dome of the diaphragm to the symphysis pubis without oral contrast, and without intravenous contrast. Sagittal and coronal images were reconstructed. Individualized dose optimization techniques were used for this CT. COMPARISON: Comparison is made with prior study dated July 21, 2016. FINDINGS: Mild increased markings at the lung bases suggestive of linear atelectasis. The visualized portions of the heart are within normal limits. Normal liver. There is nonvisualization of the gallbladder most likely secondary to prior cholecystectomy. Normal spleen. Normal pancreas. Normal bilateral adrenal glands. Normal right kidney. Normal left kidney. A percutaneous gastrostomy tube is seen within the stomach. Normal small intestine. A colostomy is seen in the left lower quadrant. Dense impacted fecal material is seen within the Luna's pouch. This has progressed as compared to prior study. The high density seen in the region of the rectum most likely representing either barium or calcification. The appendix is visualized and appears normal. Normal abdominal aorta. Normal inferior vena cava. Normal retroperitoneum. Normal urinary bladder. There is a small umbilical hernia containing fat. Moderate size bilateral inguinal hernias containing fat. Levoscoliosis of the lumbar spine. Degenerative changes of both hip joints. CT/Abdomen/Pelvis without Cont IMPRESSION: Inspissated fecal material and not metastases pouch with areas of calcification or barium retention. A gastrostomy tube is seen within the stomach. The remainder of the examination is unchanged. Electronically Signed: Matti Greer, at 9:54 EDT , Service support ,
[2018-07-14 08:54] LABS: Lactic Acid 0.5 mmol/L (0.4-2.0)
--- NOTE | 2018-07-14 11:41 | CASEMGMT ---
According to Patient Insurance, [facility] Blue [facility]. [facility] PPO, In Network Hospitals: [place] , Jovany, [facility], [facility], [facility], [facility], [facility], [place]. Micki Johns, RECM
[2018-07-14] MEDS: Phenobarbital Sodium 130 MG/ML Vial 60 MG IV (12:38)
--- NOTE | 2018-07-14 13:34 | HP.PCM_ITS ---
Problem List (1) GJ malfunction Status: Acute (2) Tracheostomy in place Status: Chronic (3) Chronic respiratory failure Status: Chronic Qualifiers: Respiratory failure complication: hypoxia and hypercapnia Qualified Code(s): J96.11 - Chronic respiratory failure with hypoxia; J96.12 - Chronic respiratory failure with hypercapnia (4) Nonrheumatic mitral valve prolapse Status: Chronic (5) Cerebral palsy Status: Chronic Qualifiers: Cerebral palsy type: spastic quadriplegic Qualified Code(s): G80.0 - Spastic quadriplegic cerebral palsy Comment: Quadriplegic Severe mental retardation Chronic constipation PEG tube (6) History of seizure disorder Status: Chronic (7) Redundant colon Status: Chronic (8) Colostomy in place Status: Chronic History of Present Illness Date of Admission: 07/14/18 Chief Complaint: GJ malfunction The patient is a 38 y/o M w/ PMHx: Chronic anemia (Baseline Hgb 10), Chronic Hypoxic and Hypercarbic Respiratory Failure on Chronic Ventilation following w/ Dr. Monsalve, Cerebral Palsy with quadreplegia w/ hx baclofen pump, colostomy, chronic catheter, frequent difficulties with aspiration, G-J tube in place, Seizure disorder who presents to the [facility] ED on 07/14/18 with history of recent discharge from [facility] approximately 2 weeks prior to current presentation with a very prolonged 3-month stay at the clinic where he developed aspiration pneumonia, tracheostomy placement with chronic vent usage now status post a baclofen pump change with family noting that he started to have emesis the day prior and despite 3 doses of Zofran which seemed to help somewhat had recurrent emesis this morning with family noting that he did get his tube feeds throughout the night with residuals obtained via his G-tube. Work-up in the ED included T 98.1, heart 97, BP 103/72, respiratory rate 18, 97% on mechanical ventilation with home small portable machine present, CBC with WBC 7.9, heme globin 10.5, platelet 184 without market shift, CMP with bicarb 33, BUN/Cr 16/0.36, Alk phos 193, trop < 0.05, lipase 147, chest x-ray with stable elevation of the right hemidiaphragm with stable mild increase in her markings at the lung bases, CT A/P w/o percutaneous G-J tube seen within the stomach with a normal small intestine with a colostomy in the left lower quadrant with dense impacted fecal material seen within the Luna's pouch mildly progressed since prior study with high density seen in the region of the cecum likely parts representative of barium or calcification. In the ED patient administered IV phenobarbital, Zofran, normal saline. [facility] was contacted for direct admission from the ED however there were no immediate MICU beds available therefore patient was accepted, transfer paperwork performed per the ED physician and decision for admission to the [facility] ICU pending this bed, hopefully the next day. Discussed patient with the healthcare or medical prior to admission and attempted transfer to [facility] however no ICU beds available with family understanding the possible need for alternate transfer the following day if MICU bed does not become readily available at the [facility] main campus. Past Medical History Past Medical History (Chronic Problems): Chronic Problems (Last Reviewed 07/12/18 @ 06:52 by Ayala Torres) Tracheostomy in place (Chronic) Chronic respiratory failure (Chronic) Aspiration pneumonia (Chronic) Nonrheumatic mitral valve prolapse (Chronic) Cerebral palsy (Chronic) Quadriplegic Severe mental retardation Chronic constipation PEG tube History of seizure disorder (Chronic) Redundant colon (Chronic) Colostomy in place (Chronic) Medical History: Medical History (Last Reviewed 07/12/18 @ 06:52 by Ayala Torres) Aspiration pneumonia (Chronic) J69.0 Nonrheumatic mitral valve prolapse (Chronic) I34.1 Cerebral palsy (Chronic) G80.9 Quadriplegic Severe mental retardation Chronic constipation PEG tube Allergies cisapride monohydrate [From Propulsid] Allergy (Verified 07/14/18 07:11) Rash codeine Adverse Reaction (Verified 07/14/18 07:11) hallucinations metronidazole [From Flagyl] Adverse Reaction (Verified 07/14/18 07:11) Rash morphine Adverse Reaction (Verified 07/14/18 07:11) Hallucinations dust Allergy (Uncoded 07/14/18 07:11) Other Home Medications: Ambulatory Orders Medication Instructions Recorded Simethicone 40MG/0.6ML [Mylicon] 40 mg GT TID 11/09/13 Pantoprazole Sodium [Protonix] 20 ml GT BID 08/09/14 Senna/Docusate Sodium 5 ml GT PRN PRN 08/03/15 Polyethylene Glycol 3350 [Miralax] 17 gm GT DAILY 08/30/15 Magnesium Hydroxide [Milk Of 35 - 50 ml GT DAILY PRN PRN 12/20/15 Magnesia] Metoclopramide [Reglan Solution] 5 mg GT TID 12/20/15 Lactulose [Chronulac] 30 ml GT DAILY PRN 06/01/16 Phenobarbital 60 mg GT BID 02/19/17 furosemide 10 mg/mL oral solution 20 mg GT DAILY PRN ml 11/09/17 Cetirizine HCl [Zyrtec] 10 mg GT DAILY 02/04/18 Lactobacillus Acidophilus 1 cap GT DAILY 02/04/18 [Acidophilus] Potassium Chl Soln 15 meq GT DAILY PRN 02/04/18 Jevity 1.5 1,000 ml PO 4X/DAY #0 02/08/18 Baclofen 20 mg GT 4X/DAY 07/14/18 Gabapentin 8 ml PO 4X/DAY 07/14/18 Surgical History: Surgical History (Last Reviewed 07/12/18 @ 06:52 by Ayala Torres) Heel cord lengthening bilaterally History of colostomy History of gastrostomy tube placement History of open reduction and internal fixation (ORIF) procedure Z98.890 left hip History of soft tissue release Bilateral hips and knees Status post insertion of intrathecal baclofen pump Z96.89 Surgical History: - - Insertion of a baclofen pump with replacement x2 following, PEG tube, GJ tube, left lower quadrant colostomy, heel cord lengthening bilaterally, L hip ORIF, bilateral hip and knee soft tissue release. Psychiatric History: No pertinent psych hx Lives: With Family Smoking Status: Never smoker Tobacco Use: Non-smoker Alcohol: None Drugs: None - *Family History Maternal Family History: Family History (Last Reviewed 07/12/18 @ 06:52 by Ayala Torres) Mother Hypertension Hepatitis C Father Hypertension Atrial fibrillation CAD (coronary artery disease) History Items: - - Mother with history of hypertension hepatitis C. Paternal Family History: Family History (Last Reviewed 07/12/18 @ 06:52 by Ayala Torres) Mother Hypertension Hepatitis C Father Hypertension Atrial fibrillation CAD (coronary artery disease) History Items: - - Father with history of hypertension, coronary disease and atrial fibrillation. Review of Systems Unable to obtain accurate/complete ROS d/t: Unable to obtain ROS from patient given his severe MRDD, no verbal status. Comment: Family does report emesis bouts x 2. VTE Information - Inpt Only VTE Present on Admission: No VTE Mechan Device Prophylaxis: SCD's VTE Pharm Prophylaxis ordered?: Yes Patient Problems: Active and Suspected Problems (Last Reviewed 07/12/18 @ 06:52 by Ayala Torres) GJ malfunction (Acute) Subjective: Seated upright in the ED bed, home vent in place, nonverbal, severe MRDD status, no acute distress apparent. Objective: Physical Examination: General: awake, alert, nonverbal, unable to answer any orientation questions, cooperative to my examination, severe MRDD with cerebral palsy with quadriplegia, no distress apparent. Skin: normal color, turgor, no icterus, cyanosis. HEENT: AT/NC, EOM difficult to assess given patient MRDD status but appears intact, PERRLA, no carotid bruits or JVD noted, tracheostomy in place with vent currently in place to home device, protruded tongue (chronic) mildly dry. Lungs: Diminished breath sounds, chronic mild increased work of breathing, no wheezing, rhonchi or rales noted, ventilator currently in place., no rales, ronchi or wheezing. Heart: Regular rate and rhythm; no gallop, rub audible. Abdomen: soft, NTTP/no grimace with palpation noted, distended appearance but family notes chronic appearance, LLQ w/ ostomy, stool output noted, hyperactive HS, difficult to assess HSM secondary to habitus/distended appearance. Extremities: no cyanosis, BL LE pedal and hand mild edema, non-pitting, quadriplegic status. Neurological: awake, alert, nonverbal, unable to answer any orientation questi ons, cooperative to my examination, severe MRDD with cerebral palsy with quadriplegia, no distress apparent; cognitive function currently baseline intact; pupils equally reactive to light and accomodation; cranial nerves difficult to assess given MRDD quadriplegic status but making facial expressions and interactive per baseline per discussion with family, strength accordingly severely globally decreased with chronic deficits unchanged. Psychiatric: affect appears normal, interactive, occasional smile, no acute evidence of depressive or anxiety feelings. - Physical Exam Vital Signs Temp Pulse Resp BP Pulse Ox 98.6 F 102 H 13 116/81 H 95 07/14/18 11:41 07/14/18 11:41 07/14/18 11:41 07/14/18 11:41 07/14/18 11:41 Oxygen Flow Rate (L/min) 4 Oxygen Delivery Method Mechanical Ventilator Weight: 166 lb 14.239 oz Body Mass Index (BMI) 0.0 Laboratory Tests Past 24 Hrs 07/14/18 07/14/18 07/14/18 08:10 08:10 08:10 WBC 7.9 RBC 4.33 L Hgb 10.5 L Hct 33.8 L MCV 78.1 L MCH 24.2 L MCHC 31.1 L RDW 18.0 H RDW Differential 51.7 H Plt Count 184 MPV 10.2 Immature Gran % (Auto) 0.100 Neut % (Auto) 71.1 H Lymph % (Auto) 16.9 L Cameron % (Auto) 9.8 Eos % (Auto) 1.8 Baso % (Auto) 0.3 Absolute Neuts (auto) 5.6 Absolute Lymphs (auto) 1.33 Total Counted Not Reportable Sodium 137 Potassium 3.6 Chloride 99 Carbon Dioxide 33.0 H Anion Gap 5 BUN 16 Creatinine 0.36 L Estim Creat Clear Calc 303.73 Est GFR (MDRD) Af Amer 348 Est GFR (MDRD) Non-Af 288 BUN/Creatinine Ratio 44.0 H Glucose 106 Lactic Acid 0.5 Calcium 8.4 L Total Bilirubin 0.20 Direct Bilirubin < 0.05 AST 17 ALT 24 Alkaline Phosphatase 193 H Total Protein 8.0 Albumin 2.8 L Globulin 5.2 H Lipase 147 Assessment/Plan All Active Problems (Last Reviewed 07/12/18 @ 06:52 by Ayala Torres) GJ malfunction (Acute) Debility (Acute) Edema (Acute) Preop cardiovascular exam (Acute) Acute respiratory failure with hypoxia (Acute) Severe sepsis (Acute) C. difficile colitis (Resolved) The patient is a 38 y/o M w/ PMHx: Chronic anemia, Chronic Hypoxic and Hypercarbic Respiratory Failure on Chronic Ventilation following w/ Dr. Monsalve, Cerebral Palsy with quadreplegia w/ hx baclofen pump, colostomy, chronic catheter, frequent difficulties with aspiration, G-J tube in place, Seizure disorder, recent 3-month prolonged stay at the clinic with discharge 2 weeks prior to current presentation who presents to the [facility] ED on 07/14/18 with history of emesis the day prior and despite 3 doses of Zofran which seemed to help somewhat had recurrent emesis this morning with family noting that he did get his tube feeds throughout the night with residuals obtained via his G-tube. (1) GJ tube malfunction with nausea, emesis: CT A/P w/o percutaneous G-J tube seen within the stomach with a normal small intestine with a colostomy in the left lower quadrant with dense impacted fecal material seen within the Luna's pouch mildly progressed since prior study with high density seen in the region of the cecum likely parts representative of barium or calcification, given [facility] main without current MICU bed will temporarily transition to the [facility] ICU per discussion with Dr. Moreira with patient already accepted at [facility] with transfer form already on the chart for reassessment of patient's GJ tube per his team, maintain NPO, do not use GJ tube, elevation HOB, aspiration risk. (2) Chronic Hypoxic and Hypercarbic Respiratory Failure on Chronic Ventilation w/ Tracheostomy: Given current presentation pending [facility] bed will admit to the ICU, healthcare or medical consulted, will maintain home vent settings w/ AVAPS 14 tidal volume 400, 30% with 5 of PEEP, tracheostomy care per protocol, aspiration precautions, given recent bouts of emesis and history of aspiration pneumonia as well as noted prolonged recent admission with this will obtain a.m. chest x-ray. (3) Spastic quadriplegia with cerebral palsy: Colostomy in place, as noted GJ tube malfunction, will not use at this time, due to positioning, barrier cream as needed, wound RN for ostomy care, PT, OT for passive range of motion, aspiration precautions, will obtain chest x-ray in a.m. given recent emesis bouts and history of aspiration pneumonia, holding all medications. Given current presentation holding baclofen as will not use the GJ tube given malfunction. May require IV medication options in interim. (4) Seizure disorder: We will continue home phenobarbital but will transition to IV version. (5) Chronic anemia, normocytic: Admission hemoglobin 10.5, baseline appears similar, trend. (6) GERD: IV famotidine. (6) DVT prophylaxis: SCDs, Lovenox. Code Visit OBSV E&M: 18336 Initial observation care L3
--- NOTE | 2018-07-14 13:43 | ED.RN ---
at 1200, pt's mother medicated pt with home dose of liquid baclofen and liquid gabapentin per dr de leon's permission.
[2018-07-14] MEDS: Chlorhexidine 15 ML PO ×2 (16:33→21:28)
[2018-07-14] MEDS: 0.9% NaCl Peripheral Flush Adult/Peds IV (16:34)
[2018-07-14] MEDS: Metoclopramide 10 MG/2 ML Vial 5 MG IV ×2 (16:34→21:28)
[2018-07-14] MEDS: 0.9% Normal Saline 1,000 ML 100 ML IV (16:34)
[2018-07-14 20:11] LABS: Bedside Glucose 93 mg/dL (70-110)
[2018-07-14] MEDS: Phenobarbital Sodium 65 MG/ML Vial 60 MG IV (21:44)
[2018-07-14] MEDS: Menthol/Lanolin/Calamine/Znox 113 GM Tube 1 APPLIC TOPICAL (21:44)
[2018-07-15 00:15] LABS: Bedside Glucose 78 mg/dL (70-110)
[2018-07-15 00:32] VITALS: BP 129/95; PULSE 91; RESP 13; TEMP 36.2; O2SAT 99
[2018-07-15] MEDS: LORazepam 2 MG/ML Syringe 0.5 MG IV (00:57)
[2018-07-15 01:00] VITALS: BP 119/76; PULSE 109; RESP 16; TEMP 36.2; O2SAT 98
--- NOTE | 2018-07-15 01:03 | NURSING ---
nurse to nurse report given to Kelly at [facility] G61-12 medical ICU.
[2018-07-15 02:00] VITALS: BP 99/65; PULSE 85; RESP 19; O2SAT 97
--- NOTE | 2018-07-15 02:28 | NURSING ---
transport here to take pt to [facility]. gave pt's mother home medication bottles- 450ml gabapentin and 100ml baclofen.
--- NOTE | 2018-07-15 06:59 | PCM.DC.SUM ---
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 Moreira ICU Operations: None Summary of Care Provided: The patient is a 38 y/o M w/ PMHx: Chronic anemia (Baseline Hgb 10), Chronic Hypoxic and Hypercarbic Respiratory Failure on Chronic Ventilation following w/ Dr. Monsalve, Cerebral Palsy with quadreplegia w/ hx baclofen pump, colostomy, chronic catheter, frequent difficulties with aspiration, G-J tube in place, Seizure disorder who presents to the [facility] ED on 07/14/18 with history of recent discharge from [facility] approximately 2 weeks prior to current presentation with a very prolonged 3-month stay at the clinic where he developed aspiration pneumonia, tracheostomy placement with chronic vent usage now status post a baclofen pump change with family noting that he started to have emesis the day prior and despite 3 doses of Zofran which seemed to help somewhat had recurrent emesis this morning with family noting that he did get his tube feeds throughout the night with residuals obtained via his G-tube. Work-up in the ED included T 98.1, heart 97, BP 103/72, respiratory rate 18, 97% on mechanical ventilation with home small portable machine present, CBC with WBC 7.9, heme globin 10.5, platelet 184 without market shift, CMP with bicarb 33, BUN/Cr 16/0.36, Alk phos 193, trop < 0.05, lipase 147, chest x-ray with stable elevation of the right hemidiaphragm with stable mild increase in her markings at the lung bases, CT A/P w/o percutaneous G-J tube seen within the stomach with a normal small intestine with a colostomy in the left lower quadrant with dense impacted fecal material seen within the Luna's pouch mildly progressed since prior study with high density seen in the region of the cecum 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 In the ED patient administered IV phenobarbital, Zofran, normal saline. [facility] was contacted for direct admission from the ED however there were no immediate MICU beds available therefore patient was accepted, transfer paperwork performed per the ED physician and decision for admission to the [facility] ICU pending this bed, hopefully the next day. Discussed patient with the clinical data associate prior to admission and attempted transfer to [facility] however no ICU beds available with family understanding the possible need for alternate transfer the following day if MICU bed does not become readily available; however, patient had [facility] Main bed in the MICU on 07/15/18 AM and was transferred without issue. During admission, maintained NPO, did not use GJ tube, elevation HOB, maintained home vent settings w/ AVAPS 14 tidal volume 400, 30% with 5 of PEEP, tracheostomy care per protocol, aspiration precautions, maintained on IV phenobarbital in addition to Ativan given need to hold baclofen. Physical Examination: General: awake, alert, nonverbal, unable to answer any orientation questions, cooperative to my examination, severe MRDD with cerebral palsy with quadriplegia, no distress apparent. Skin: normal color, turgor, no icterus, cyanosis. HEENT: AT/NC, EOM difficult to assess given patient MRDD status but appears intact, PERRLA, no carotid bruits or JVD noted, tracheostomy in place with vent currently in place to home device, protruded tongue (chronic) mildly dry. Lungs: Diminished breath sounds, chronic mild increased work of breathing, no wheezing, rhonchi or rales noted, ventilator currently in place., no rales, ronchi or wheezing. Heart: Regular rate and rhythm; no gallop, rub audible. Abdomen: soft, NTTP/no grimace with palpation noted, distended appearance but family notes chronic appearance, LLQ w/ ostomy, stool output noted, hyperactive HS, difficult to assess HSM secondary to habitus/distended appearance. Extremities: no cyanosis, BL LE pedal and hand mild edema, non-pitting, quadriplegic status. Neurological: awake, alert, nonverbal, unable to answer any orientation questions, cooperative to my examination, severe MRDD with cerebral palsy with quadriplegia, no distress apparent; cognitive function currently baseline intact; pupils equally reactive to light and accomodation; cranial nerves difficult to assess given MRDD quadriplegic status but making facial expressions and interactive per baseline per discussion with family, strength accordingly severely globally decreased with chronic deficits unchanged. Psychiatric: affect appears normal, interactive, occasional smile, no acute evidence of depressive or anxiety feelings. - Physical Exam Vital Signs Temp Pulse Resp BP Pulse Ox 97.2 F L 85 19 H 99/65 97 07/15/18 01:00 07/15/18 02:00 07/15/18 02:00 07/15/18 02:00 07/15/18 02:00 Oxygen Flow Rate (L/min) 4 Oxygen Delivery Method Mechanical Ventilator Weight: 170 lb 11.2 oz Body Mass Index (BMI) 33.3 Intake and Output for Last 24 Hours 07/13/18 07/14/18 07/15/18 23:59 23:59 23:59 Intake Total 243 / 243 309 / 309 Output Total 50 / 50 Balance 243 / 243 259 / 259 Laboratory Tests Past 24 Hrs 07/14/18 07/14/18 07/14/18 08:10 08:10 08:10 WBC 7.9 RBC 4.33 L Hgb 10.5 L Hct 33.8 L MCV 78.1 L MCH 24.2 L MCHC 31.1 L RDW 18.0 H RDW Differential 51.7 H Plt Count 184 MPV 10.2 Immature Gran % (Auto) 0.100 Neut % (Auto) 71.1 H Lymph % (Auto) 16.9 L Person % (Auto) 9.8 Eos % (Auto) 1.8 Baso % (Auto) 0.3 Absolute Neuts (auto) 5.6 Absolute Lymphs (auto) 1.33 Total Counted Not Reportable Sodium 137 Potassium 3.6 Chloride 99 Carbon Dioxide 33.0 H Anion Gap 5 BUN 16 Creatinine 0.36 L Estim Creat Clear Calc 303.73 Est GFR (MDRD) Af Amer 348 Est GFR (MDRD) Non-Af 288 BUN/Creatinine Ratio 44.0 H Glucose 106 Lactic Acid 0.5 Calcium 8.4 L Total Bilirubin 0.20 Direct Bilirubin < 0.05 AST 17 ALT 24 Alkaline Phosphatase 193 H Total Protein 8.0 Albumin 2.8 L Globulin 5.2 H Lipase 147 POC Glucose 07/15/18 07/14/18 00:09 19:58 POC Glucose 78 93 Home Medications: Medications to take at Discharge Simethicone 40MG/0.6ML [Mylicon] 40 mg GT TID 11/09/13 Pantoprazole Sodium [Protonix] 20 ml GT BID 08/09/14 Senna/Docusate Sodium 5 ml GT PRN PRN 08/03/15 Polyethylene Glycol 3350 [Miralax] 17 gm GT DAILY 08/30/15 Magnesium Hydroxide [Milk Of Magnesia] 35 - 50 ml GT DAILY PRN PRN 12/20/15 Metoclopramide [Reglan Solution] 5 mg GT TID 12/20/15 Lactulose [Chronulac] 30 ml GT DAILY PRN 06/01/16 Phenobarbital 60 mg GT BID 02/19/17 furosemide 10 mg/mL oral solution 20 mg GT DAILY PRN ml 11/09/17 Cetirizine HCl [Zyrtec] 10 mg GT DAILY 02/04/18 Lactobacillus Acidophilus [Acidophilus] 1 cap GT DAILY 02/04/18 Potassium Chl Soln 15 meq GT DAILY PRN 02/04/18 Jevity 1.5 1,000 ml PO 4X/DAY #0 02/08/18 Baclofen 20 mg GT 4X/DAY 07/14/18 Gabapentin 8 ml PO 4X/DAY 07/14/18 Primary Care Physician: Timmy Severino MD [Primary Care Provider] - Disposition: Acute care Hospital Minutes spent on discharge:: 35 Patient Condition:: Fair Medical Necessity - Tobacco Use Smoking Status: Never smoker Tobacco Use: Non-smoker Meaningful Use Info Meaningful Use Diagnoses (Choose all that apply): None applicable Code Visit OBSV E&M: 47465 Observation care discharge
--- NOTE | 2018-07-15 07:03 | DS.PCM_ITS ---
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 Moreira ICU Operations: None Summary of Care Provided: The patient is a 38 y/o M w/ PMHx: Chronic anemia (Baseline Hgb 10), Chronic Hypoxic and Hypercarbic Respiratory Failure on Chronic Ventilation following w/ Dr. Monsalve, Cerebral Palsy with quadreplegia w/ hx baclofen pump, colostomy, chronic catheter, frequent difficulties with aspiration, G-J tube in place, Seizure disorder who presents to the [facility] ED on 07/14/18 with history of recent discharge from [facility] approximately 2 weeks prior to current presentation with a very prolonged 3-month stay at the clinic where he developed aspiration pneumonia, tracheostomy placement with chronic vent usage now status post a baclofen pump change with family noting that he started to have emesis the day prior and despite 3 doses of Zofran which seemed to help somewhat had recurrent emesis this morning with family noting that he did get his tube feeds throughout the night with residuals obtained via his G-tube. Work-up in the ED included T 98.1, heart 97, BP 103/72, respiratory rate 18, 97% on mechanical ventilation with home small portable machine present, CBC with WBC 7.9, heme globin 10.5, platelet 184 without market shift, CMP with bicarb 33, BUN/Cr 16/0.36, Alk phos 193, trop < 0.05, lipase 147, chest x-ray with stable elevation of the right hemidiaphragm with stable mild increase in her markings at the lung bases, CT A/P w/o percutaneous G-J tube seen within the stomach with a normal small intestine with a colostomy in the left lower quadrant with dense impacted fecal material seen within the Luna's pouch mildly progressed since prior study with high density seen in the region of the cecum likely hr representative of barium or calcification. In the ED patient administered IV phenobarbital, Zofran, normal saline. [facility] was contacted for direct admission from the ED however there were no immediate MICU beds available therefore patient was accepted, transfer paperwork performed per the ED physician and decision for admission to the [facility] ICU pending this bed, hopefully the next day. Discussed patient with the concentrator operator prior to admission and attempted transfer to [facility] however no ICU beds available with family understanding the possible need for alternate transfer the following day if MICU bed does not become readily available; however, patient had [facility] Main bed in the MICU on 07/15/18 AM and was transferred without issue. During admission, maintained NPO, did not use GJ tube, elevation HOB, maintained home vent settings w/ AVAPS 14 tidal volume 400, 30% with 5 of PEEP, tracheostomy care per protocol, aspiration precautions, maintained on IV phenobarbital in addition to Ativan given need to hold baclofen. Physical Examination: General: awake, alert, nonverbal, unable to answer any orientation questions, cooperative to my examination, severe MRDD with cerebral palsy with quadriplegia, no distress apparent. Skin: normal color, turgor, no icterus, cyanosis. HEENT: AT/NC, EOM difficult to assess given patient MRDD status but appears intact, PERRLA, no carotid bruits or JVD noted, tracheostomy in place with vent currently in place to home device, protruded tongue (chronic) mildly dry. Lungs: Diminished breath sounds, chronic mild increased work of breathing, no wheezing, rhonchi or rales noted, ventilator currently in place., no rales, ronchi or wheezing. Heart: Regular rate and rhythm; no gallop, rub audible. Abdomen: soft, NTTP/no grimace with palpation noted, distended appearance but family notes chronic appearance, LLQ w/ ostomy, stool output noted, hyperactive HS, difficult to assess HSM secondary to habitus/distended appearance. Extremities: no cyanosis, BL LE pedal and hand mild edema, non-pitting, quadriplegic status. Neurological: awake, alert, nonverbal, unable to answer any orientation questions, cooperative to my examination, severe MRDD with cerebral palsy with quadriplegia, no distress apparent; cognitive function currently baseline intact; pupils equally reactive to light and accomodation; cranial nerves difficult to assess given MRDD quadriplegic status but making facial expressions and interactive per baseline per discussion with family, strength accordingly severely globally decreased with chronic deficits unchanged. Psychiatric: affect appears normal, interactive, occasional smile, no acute evidence of depressive or anxiety feelings. - Physical Exam Vital Signs Temp Pulse Resp BP Pulse Ox 97.2 F L 85 19 H 99/65 97 07/15/18 01:00 07/15/18 02:00 07/15/18 02:00 07/15/18 02:00 07/15/18 02:00 Oxygen Flow Rate (L/min) 4 Oxygen Delivery Method Mechanical Ventilator Weight: 170 lb 11.2 oz Body Mass Index (BMI) 33.3 Intake and Output for Last 24 Hours 07/13/18 07/14/18 07/15/18 23:59 23:59 23:59 Intake Total 243 / 243 309 / 309 Output Total 50 / 50 Balance 243 / 243 259 / 259 Laboratory Tests Past 24 Hrs 07/14/18 07/14/18 07/14/18 08:10 08:10 08:10 WBC 7.9 RBC 4.33 L Hgb 10.5 L Hct 33.8 L MCV 78.1 L MCH 24.2 L MCHC 31.1 L RDW 18.0 H RDW Differential 51.7 H Plt Count 184 MPV 10.2 Immature Gran % (Auto) 0.100 Neut % (Auto) 71.1 H Lymph % (Auto) 16.9 L [place] % (Auto) 9.8 Eos % (Auto) 1.8 Baso % (Auto) 0.3 Absolute Neuts (auto) 5.6 Absolute Lymphs (auto) 1.33 Total Counted Not Reportable Sodium 137 Potassium 3.6 Chloride 99 Carbon Dioxide 33.0 H Anion Gap 5 BUN 16 Creatinine 0.36 L Estim Creat Clear Calc 303.73 Est GFR (MDRD) Af Amer 348 Est GFR (MDRD) Non-Af 288 BUN/Creatinine Ratio 44.0 H Glucose 106 Lactic Acid 0.5 Calcium 8.4 L Total Bilirubin 0.20 Direct Bilirubin < 0.05 AST 17 ALT 24 Alkaline Phosphatase 193 H Total Protein 8.0 Albumin 2.8 L Globulin 5.2 H Lipase 147 POC Glucose 07/15/18 07/14/18 00:09 19:58 POC Glucose 78 93 Home Medications: Medications to take at Discharge Simethicone 40MG/0.6ML [Mylicon] 40 mg GT TID 11/09/13 Pantoprazole Sodium [Protonix] 20 ml GT BID 08/09/14 Senna/Docusate Sodium 5 ml GT PRN PRN 08/03/15 Polyethylene Glycol 3350 [Miralax] 17 gm GT DAILY 08/30/15 Magnesium Hydroxide [Milk Of Magnesia] 35 - 50 ml GT DAILY PRN PRN 12/20/15 Metoclopramide [Reglan Solution] 5 mg GT TID 12/20/15 Lactulose [Chronulac] 30 ml GT DAILY PRN 06/01/16 Phenobarbital 60 mg GT BID 02/19/17 furosemide 10 mg/mL oral solution 20 mg GT DAILY PRN ml 11/09/17 Cetirizine HCl [Zyrtec] 10 mg GT DAILY 02/04/18 Lactobacillus Acidophilus [Acidophilus] 1 cap GT DAILY 02/04/18 Potassium Chl Soln 15 meq GT DAILY PRN 02/04/18 Jevity 1.5 1,000 ml PO 4X/DAY #0 02/08/18 Baclofen 20 mg GT 4X/DAY 07/14/18 Gabapentin 8 ml PO 4X/DAY 07/14/18 Primary Care Physician: Timmy Severino MD [Primary Care Provider] - Disposition: Acute care Hospital Minutes spent on discharge:: 35 Patient Condition:: Fair Medical Necessity - Tobacco Use Smoking Status: Never smoker Tobacco Use: Non-smoker Meaningful Use Info Meaningful Use Diagnoses (Choose all that apply): None applicable Code Visit OBSV E&M: 96267 Observation care discharge
== END 2018-07-15 02:30 | disposition short-term general hospital (02) ==
LOC: ED 07:35 → ICU 14:12
PROVIDERS: Admitting Provider Family Medicine; Emergency Provider Emergency Medicine; Family Provider Family Medicine; PCP Family Medicine; Referring Provider Family Medicine; Visit Provider Family Medicine
DX: K94.23 Gastrostomy malfunction (principal); Y83.8 Other surgical procedures as the cause of abnormal reaction of the patient, or of later complication, without mention of misadventure at the time of the procedure; J96.12 Chronic respiratory failure with hypercapnia; J96.11 Chronic respiratory failure with hypoxia; Z99.11 Dependence on respirator [ventilator] status; K21.9 Gastro-esophageal reflux disease without esophagitis; G40.909 Epilepsy, unspecified, not intractable, without status epilepticus; Z79.899 Other long term (current) drug therapy; F72 Severe intellectual disabilities; Q43.8 Other specified congenital malformations of intestine; D64.9 Anemia, unspecified; G80.0 Spastic quadriplegic cerebral palsy; Z96.89 Presence of other specified functional implants
CPT/HCPCS: 31720; 36415; 36591; 71045; 74176; 80048; 80076; 82962; 83605; 83690; 85025; 87040; 96361; 96374; 96375; 96376; 99285; J7030; A4216; J2405; J3490

== ENCOUNTER 2018-07-19 15:17 | Emergency (ER) | payer BC, MEDICAID, SELFPAY ==
[2018-07-14 14:29] VITALS: BMI 33.3
[2018-07-19 15:19] VITALS: BP 126/99; PULSE 94; RESP 28; TEMP 36.6; O2SAT 98; BMI 32.5
--- NOTE | 2018-07-19 16:51 | ED.VIS.GEN ---
History of Present Illness Chief Complaint: Wound Check Informant: Family Limited by: Stupor Onset: Today Context: Sudden Onset Quality: Gastrojejunostomy tube fell out Location: Left upper quadrant Current Severity: Moderate Maximum Severity: Moderate Worsened by: Delay in reinsertion of gastric button Relieved by: Not applicable Associated Symptoms: None Narrative: Patient is a 38-year-old male who is dependent on his parents for total care. His gastrojejunostomy tube fell out. He was brought to the emergency department to have it reinserted. He is nonverbal. There is no other history available. Prior similar symptoms: Yes Recent Illness/Hospitalization: No - Past Medical History (1) Debility Status: Acute (2) GJ malfunction Status: Acute (3) Cerebral palsy Status: Chronic Comment: Quadriplegic Severe mental retardation Chronic constipation PEG tube (4) Chronic respiratory failure Status: Chronic (5) History of seizure disorder Status: Chronic (6) Tracheostomy in place Status: Chronic Past Medical History - Allergies and Home Meds Allergies/Adverse Reactions: Allergies cisapride monohydrate [From Propulsid] Allergy (Verified 07/19/18 15:26) Rash codeine Adverse Reaction (Verified 07/19/18 15:26) hallucinations metronidazole [From Flagyl] Adverse Reaction (Verified 07/19/18 15:26) Rash morphine Adverse Reaction (Verified 07/19/18 15:26) Hallucinations dust Allergy (Uncoded 07/19/18 15:26) Other Primary Care Physician: Timmy Severino MD [Primary Care Provider] - Prior records reviewed: Yes Surgical History: noncontributory, - - Insertion of a baclofen pump with replacement x2 following, PEG tube, GJ tube, left lower quadrant colostomy, heel cord lengthening bilaterally, L hip ORIF, bilateral hip and knee soft tissue release. Lives: With Family Smoking Status: Never smoker Alcohol: None - Family History Maternal Family History: Family History (Last Reviewed 07/12/18 @ 06:52 by Ayala Torres) Mother Hypertension Hepatitis C Father Hypertension Atrial fibrillation CAD (coronary artery disease) Family History: Reports: - - Mother with history of hypertension hepatitis C. Paternal Family History: Family History (Last Reviewed 07/12/18 @ 06:52 by Ayala Torres) Mother Hypertension Hepatitis C Father Hypertension Atrial fibrillation CAD (coronary artery disease) Family History: Reports: - - Father with history of hypertension, coronary disease and atrial fibrillation. Review of Systems ROS: Unable to Obtain - Patient is nonverbal General: Reports: Fever Cardiovascular: Reports: Palpitations, Heart racing Respiratory: Reports: Dyspnea, Cough Gastrointestinal: Reports: Vomiting, Diarrhea Skin: Reports: Rash Physical Exam Vital Signs/Narrative: Vital Signs Temp Pulse Resp BP Pulse Ox 07/19/18 15:19 98 F 94 28 H 126/99 H 98 Inital Vital Signs reviewed: Yes General: Well nourished, Well developed, Obese, No Acute Distress Head: Normocephalic, Atraumatic Eyes: Perrl, EOMI. Negative for: Pale conjunctiva ENT: Moist mucous membranes, No rhinorrhea Neck: Supple, Nontender, No lymphadenopathy, No JVD Cardiovascular: Regular rate, Regular rhythm, No murmurs, Normal S1, Normal S2 Respiratory: No distress, CTA bilaterally, Chest nontender Abdomen: Soft, Nontender, No masses, Hypoactive bowel sounds, - - Gastrostomy site has essentially closed. Unable to pass gastric button or jejunostomy tube.. Negative for: Nondistended, Hepatomegaly, Splenomegaly Rectal: Deferred Neurological: - - GCS 7 Diagnostic/Tx/Re-eval - Medical Decision Making Patient site is closing. Urethral sounds were ordered. The fistula tract was dilated up to a 24 Sudanese urethral sound. A 20 Sudanese gastric button was placed. He is scheduled to see Dr. Luis Odom tomorrow morning for revision of feeding tube. Procedures Procedure(s): Dilation of gastrostomy track with urethral sounds or placement of 20 Sudanese gastric button. Patient tolerated procedure without complications or difficulty. ED Disposition - Plan for ED Patient: Disposition: Home or Assisted Living Diagnosis: Dislodged gastrostomy tube Instructions: ED G Tube Replacement Referrals: Timmy Severino MD [Primary Care Provider] - Luis Simon MD [STAFF PHYSICIAN] - Keep Mikael appointment
[2018-07-19 17:26] VITALS: PULSE 92; RESP 20; O2SAT 96
== END 2018-07-19 17:27 | disposition home or self-care (01) ==
PROVIDERS: Emergency Provider Emergency Medicine; Family Provider Family Medicine; PCP Family Medicine
DX: Z43.1 Encounter for attention to gastrostomy (principal); E66.9 Obesity, unspecified; G80.8 Other cerebral palsy; F72 Severe intellectual disabilities; K59.09 Other constipation; G40.909 Epilepsy, unspecified, not intractable, without status epilepticus; Z87.09 Personal history of other diseases of the respiratory system; Z79.899 Other long term (current) drug therapy
CPT/HCPCS: 99284; A4216

== ENCOUNTER 2018-07-25 17:26 | Outpatient (RCR) | payer BC, MEDICAID, SELFPAY ==
[2018-07-12 06:01] VITALS: BMI 33.5
[2018-07-20 10:01] VITALS: BMI 30.8
== END 2018-08-21 23:59 ==
LOC: NS 17:26
PROVIDERS: Family Provider Family Medicine; PCP Family Medicine; Visit Provider Internal Medicine Critical Care Medicine
DX: Z93.1 Gastrostomy status (principal); Z71.3 Dietary counseling and surveillance
CPT/HCPCS: 97802

== ENCOUNTER → 2018-08-18 | Outpatient (CLI) | payer BC, MEDICAID, SELFPAY ==
[2018-07-20 10:01] VITALS: BMI 30.8
[2018-08-18 14:19] LABS: Absolute Lymphocyte Count 2.07 X10^3/ul (0.83-4.51); Absolute Neutrophil Count 3.6 X10^3/uL (2.0-7.7); Basophil# 0.01 X10^3/uL; Basophil% 0.2 % (0-1); Eosinophil# 0.27 X10^3/uL; Eosinophils% 4.2 % (0-5); Hematocrit 35.4 % (40-54); Hemoglobin 10.9 g/dl (13.0-16.5); Lymphocyte # 2.07 X10^3/ul (4.0); Lymphocyte % 32.3 % (19-41); Mean Corp Hgb Conc 30.8 g/gl (32-36); Mean Platelet Vol. 10.7 fl (6.2-12.0); Monocyte# 0.45 X10^3/uL; Neutrophil % 56.3 % (47-70); Platelet Count 219 K/mm3 (150-450); RBC Distribution Width CV 17.4 % (11.6-14.6); RBC Distribution Width SD 48.6 fl (35.1-43.9); Red Blood Count 4.54 M/mm3 (4.6-6.2); White Blood Count 6.4 K/mm3 (4.4-11.0)
[2018-08-18 14:21] LABS: POSITIVE COUNT NO; POSITIVE DIFFERENTIAL NO; POSITIVE MORPHOLOGY NO
[2018-08-18 14:39] LABS: Anion Gap 5 (5-15); BUN 18 mg/dL (7-18); Calcium,Total 8.6 mg/dL (8.5-10.1); Chloride 102 mmol/L (98-107); Creatinine, Serum 0.32 mg/dL (0.70-1.30); EST Glomerular Filtration Rate 339 mL/min (>60); Est Glom Filt Rate - Afr Amer 410 mL/min (>60); Glucose 86 mg/dL (74-106); Potassium 4.3 mmol/L (3.5-5.1); Sodium Level 136 mmol/L (136-145)
== END | disposition home or self-care (01) ==
LOC: LABSPEC 13:36
PROVIDERS: Family Provider Family Medicine; PCP Family Medicine; Referring Provider Family Medicine; Visit Provider Family Medicine
DX: G80.9 Cerebral palsy, unspecified (principal); Z79.899 Other long term (current) drug therapy
CPT/HCPCS: 80048; 85025

== ENCOUNTER 2018-09-19 09:00 | Outpatient (RCR) | payer BC, MEDICAID, SELFPAY ==
[2018-07-20 10:01] VITALS: BMI 30.8
[2018-09-16 08:24] VITALS: BMI 30.7
== END 2018-09-21 23:59 ==
LOC: NS 09:00
PROVIDERS: Family Provider Family Medicine; PCP Family Medicine; Visit Provider Internal Medicine Critical Care Medicine
DX: Z93.1 Gastrostomy status (principal); Z71.3 Dietary counseling and surveillance
CPT/HCPCS: 97803

== ENCOUNTER → 2018-09-22 | Outpatient (CLI) | payer BC, MEDICAID, SELFPAY ==
[2018-09-16 08:24] VITALS: BMI 30.7
[2018-09-22 21:46] LABS: Anion Gap 5 (5-15); BUN 27 mg/dL (7-18); BUN/Creat Ratio 96.1 RATIO (10-20); Calcium,Total 8.5 mg/dL (8.5-10.1); Chloride 102 mmol/L (98-107); Creatinine, Serum 0.28 mg/dL (0.70-1.30); EST Glomerular Filtration Rate 387 mL/min (>60); Est Glom Filt Rate - Afr Amer 469 mL/min (>60); Glucose 91 mg/dL (74-106); Magnesium 2.1 mg/dL (1.6-2.6); Potassium 3.7 mmol/L (3.5-5.1); Sodium Level 139 mmol/L (136-145)
== END | disposition home or self-care (01) ==
LOC: HH 21:14 → LABSPEC 09-23 08:09
PROVIDERS: Family Provider Family Medicine; PCP Family Medicine; Referring Provider Internal Medicine Cardiovascular Disease; Visit Provider Internal Medicine Cardiovascular Disease
DX: R60.9 Edema, unspecified (principal); G80.9 Cerebral palsy, unspecified; Z79.899 Other long term (current) drug therapy
CPT/HCPCS: 80048; 83735

== ENCOUNTER 2018-10-08 02:49 | Observation (INO) | payer BC, MEDICAID, SELFPAY ==
[2018-10-03 10:37] VITALS: BMI 30.7
[2018-10-08] VITALS (19 sets, daily range): BP systolic 95–131; BP diastolic 60–95; PULSE 87–125; RESP 10–22; TEMP 35.9–37.2; O2SAT 90–97; BMI 34.7; BMI 34.0
--- NOTE | 2018-10-08 03:04 | EKG12_ITS ---
Test Reason : TACHY Blood Pressure : / mmHG Vent. Rate : 120 BPM Atrial Rate : 120 BPM P-R Int : 134 ms QRS Dur : 092 ms QT Int : 312 ms P-R-T Axes : 058 -20 035 degrees QTc Int : 440 ms Sinus tachycardia Incomplete right bundle branch block ST & T wave abnormality, consider anterolateral ischemia Abnormal ECG Confirmed by PATEL VARGAS, RACHELLE ([id number]), field map editor ILANA WARNER ([id number]) on 10/10/2018 12:49:31 PM Referred By: AYDE Confirmed By:RACHELLE SWEENEY MD
--- NOTE | 2018-10-08 03:04 | RAD_ITS ---
STUDY: X-RAY CHEST REASON FOR EXAM: Male, 38 years old. Fever TECHNIQUE: AP portable COMPARISON: 07/14/2018 FINDINGS: Tracheostomy tube is stable in positioning as well as right Port-A-Cath. There is stable elevation of the right hemidiaphragm. Lung volumes are low with accentuation of bronchovascular markings. Normal size heart. Normal mediastinum and rachelle. Normal visualized pulmonary arteries. Normal visualized aortic arch and descending thoracic aorta. Normal visualized thoracic spine. Normal visualized ribs, clavicles, and shoulders. There is no demonstrated abnormality of the visualized soft tissue structures of the upper abdomen. RAD/Chest 1 View (Portable) IMPRESSION: Stable chest radiograph with low lung volumes and accentuation of bronchovascular markings. No focal lung consolidation changes or interval change. Electronically Signed: Dale Mcdonnell, at 3:35 EDT Tel , Service support ,
--- NOTE | 2018-10-08 03:06 | ED.DCSUM_ITS ---
History of Present Illness Chief Complaint: Fever Narrative: Patient is a 38-year-old male with a history of cerebral palsy, chronic respiratory failure, seizure disorder. He is on a ventilator and has a G-tube and gets tube feeds. He does have a history of muscle spasticity. Last night when he was put to bed he was at his baseline. However this morning he developed increasing agitation and felt hot to the touch. He had elevated heart rate and respiratory rate. He has had normal output from his ostomy. He has had some cough. Past Medical History - Allergies and Home Meds Allergies/Adverse Reactions: Allergies cisapride monohydrate [From Propulsid] Allergy (Verified 10/08/18 03:03) Rash codeine Adverse Reaction (Verified 10/08/18 03:03) hallucinations metronidazole [From Flagyl] Adverse Reaction (Verified 10/08/18 03:03) Rash morphine Adverse Reaction (Verified 10/08/18 03:03) Hallucinations dust Allergy (Uncoded 10/03/18 10:28) Other Primary Care Physician: Timmy Severino MD [Primary Care Provider] - Past Medical History: - - Cerebral palsy, seizure disorder, chronic respiratory failure Surgical History: noncontributory, - - Insertion of a baclofen pump with replacement x2 following, PEG tube, GJ tube, left lower quadrant colostomy, heel cord lengthening bilaterally, L hip ORIF, bilateral hip and knee soft tissue release. Smoking Status: Never smoker - Family History Maternal Family History: Family History (Last Reviewed 10/03/18 @ 10:46 by REYNA Jose) Mother Hypertension Hepatitis C Father Hypertension Atrial fibrillation CAD (coronary artery disease) Family History: Reports: - - Mother with history of hypertension hepatitis C. Paternal Family History: Family History (Last Reviewed 10/03/18 @ 10:46 by REYNA Jose) Mother Hypertension Hepatitis C Father Hypertension Atrial fibrillation CAD (coronary artery disease) Family History: Reports: - - Father with history of hypertension, coronary disease and atrial fibrillation. Review of Systems ROS: Unable to Obtain - Review of systems is limited as the patient is nonverbal some was able to be obtained from family. General: Reports: Fever, Subjective Respiratory: Reports: Dyspnea, Cough Gastrointestinal: Denies: Diarrhea Physical Exam Vital Signs/Narrative: Vital Signs Temp Pulse Resp BP Pulse Ox 10/08/18 02:54 14 10/08/18 02:50 99 F 118 H 17 109/82 H 91 General: Acute Distress Eyes: EOMI ENT: Moist mucous membranes Cardiovascular: Regular rhythm, Tachycardia Respiratory: Rhonchi, - - Increased work of breathing, tachypnea, bilateral rhonchi, no wheezing, no rales Abdomen: Soft, - - Mild distention. Negative for: Tender, Guarding Extremities: Nontender Skin: Diaphoresis Neurological: Alert Diagnostic/Tx/Re-eval Impressions Chest X-Ray 10/08/18 03:04 IMPRESSION: Stable chest radiograph with low lung volumes and accentuation of bronchovascular markings. No focal lung consolidation changes or interval change. Electronically Signed: Dale Mcdonnell, at 3:35 EDT Tel , Service support , Abdomen/Pelvis CT 10/08/18 03:40 IMPRESSION: Negative unenhanced CT of the abdomen and pelvis for acute abnormality or interval change. Appropriately positioned gastric and Augustin tubes. Electronically Signed: Dale Mcdonnell, at 4:49 EDT Tel , Service support , Chest CTA 10/08/18 04:00 IMPRESSION: Negative CTA chest examination, without a demonstrated pulmonary embolism or arterial dissection. bibasilar lung atelectasis. No focal lung consolidation or changes. Electronically Signed: Dale Mcdonnell, at 4:43 EDT Tel , Service support , 10/08/18 03:04 Chest 1 View (Portable) [RAD] Stat 10/08/18 03:40 CT Abd [Abdomen/Pelvis without Cont] [CT] Stat 10/08/18 04:00 CTA Chest W/WO Contrast [CT] Stat Laboratory Results 10/08/18 10/08/18 10/08/18 03:00 03:00 03:00 WBC 6.6 RBC 4.65 Hgb 12.0 L Hct 36.8 L MCV 79.1 L MCH 25.8 L MCHC 32.6 RDW Std Deviation 45.5 H RDW Coeff of Emilee 16.3 H Plt Count 157 MPV 10.4 Immature Gran % (Auto) 0.200 Neut % (Auto) 49.2 Lymph % (Auto) 38.9 [place] % (Auto) 9.4 Eos % (Auto) 2.1 Baso % (Auto) 0.2 Absolute Neuts (auto) 3.3 Absolute Lymphs (auto) 2.57 Nucleated RBC % 0 PT 13.9 INR 1.1 Sodium 138 Potassium 4.4 Chloride 103 Carbon Dioxide 28.0 Anion Gap 7 BUN 23 H Creatinine 0.42 L Estim Creat Clear Calc 259.31 Est GFR (MDRD) Af Amer 299 Est GFR (MDRD) Non-Af 247 BUN/Creatinine Ratio 55.4 H Glucose 84 Lactic Acid Calcium 9.0 Total Bilirubin 0.20 AST 15 ALT 21 Alkaline Phosphatase 283 H Troponin I Total Protein 9.1 H Albumin 3.4 Globulin 5.7 H Albumin/Globulin Ratio 0.6 L Urine Color Urine Clarity Urine pH Ur Specific [place] Urine Protein Urine Glucose (UA) Urine Ketones Urine Occult Blood Urine Nitrite Urine Bilirubin Urine Urobilinogen Ur Leukocyte Esterase Urine RBC Urine WBC Ur Squamous Epith Cells Urine Bacteria Urine Mucus 10/08/18 10/08/18 10/08/18 03:00 03:00 03:00 WBC RBC Hgb Hct MCV MCH MCHC RDW Std Deviation RDW Coeff of Emilee Plt Count MPV Immature Gran % (Auto) Neut % (Auto) Lymph % (Auto) [place] % (Auto) Eos % (Auto) Baso % (Auto) Absolute Neuts (auto) Absolute Lymphs (auto) Nucleated RBC % PT Cancelled INR Cancelled Sodium Potassium Chloride Carbon Dioxide Anion Gap BUN Creatinine Estim Creat Clear Calc Est GFR (MDRD) Af Amer Est GFR (MDRD) Non-Af BUN/Creatinine Ratio Glucose Lactic Acid 1.3 Calcium Total Bilirubin AST ALT Alkaline Phosphatase Troponin I < 0.015 Total Protein Albumin Globulin Albumin/Globulin Ratio Urine Color Urine Clarity Urine pH Ur Specific [place] Urine Protein Urine Glucose (UA) Urine Ketones Urine Occult Blood Urine Nitrite Urine Bilirubin Urine Urobilinogen Ur Leukocyte Esterase Urine RBC Urine WBC Ur Squamous Epith Cells Urine Bacteria Urine Mucus 10/08/18 03:20 WBC RBC Hgb Hct MCV MCH MCHC RDW Std Deviation RDW Coeff of Emilee Plt Count MPV Immature Gran % (Auto) Neut % (Auto) Lymph % (Auto) [place] % (Auto) Eos % (Auto) Baso % (Auto) Absolute Neuts (auto) Absolute Lymphs (auto) Nucleated RBC % PT INR Sodium Potassium Chloride Carbon Dioxide Anion Gap BUN Creatinine Estim Creat Clear Calc Est GFR (MDRD) Af Amer Est GFR (MDRD) Non-Af BUN/Creatinine Ratio Glucose Lactic Acid Calcium Total Bilirubin AST ALT Alkaline Phosphatase Troponin I Total Protein Albumin Globulin Albumin/Globulin Ratio Urine Color Yellow Urine Clarity Clear Urine pH 7.0 Ur Specific [place] 1.005 Urine Protein 15 H Urine Glucose (UA) Normal Urine Ketones Negative Urine Occult Blood Negative Urine Nitrite Negative Urine Bilirubin Negative Urine Urobilinogen Normal Ur Leukocyte Esterase 25 H Urine RBC 0 SEEN Urine WBC 0-5 SEEN Ur Squamous Epith Cells 0-5 SEEN Urine Bacteria RARE Urine Mucus 0 SEEN - Medical Decision Making Based on initial presentation I was concerned about possible infectious process. Pneumonia was considered. Additionally he is incontinent so UTI is considered. Patient was treated with IV fluids. Chest x-ray serum laboratory studies and urinalysis were obtained all of which are unremarkable. Lactic acid was normal. Given his lack of mobility pulmonary embolism was considered. He also has some abdominal distention so CTA of the chest and CT of the abdomen were obtained. These are both unremarkable as well. Patient did have increased oxygen requirements here. He is normally on 3 L. This was increased to 4 and patient transiently desaturated down to the mid to high 80s and was on 6 for a short time. We are able to decrease back to 4 L to his home ventilator. Patient does meet sirs criteria however the cause is unclear at this point. Patient will be admitted for further evaluation and management. ED Disposition - Plan for ED Patient: Disposition: Acute Care Hospital [facility] Diagnosis: SIRS (systemic inflammatory response syndrome), Chronic respiratory failure Referrals: Timmy Severino MD [Primary Care Provider] -
[2018-10-08] MEDS: 0.9% Normal Saline 1,000 ML 999 ML IV (03:13)
[2018-10-08 03:14] LABS: Absolute Lymphocyte Count 2.57 X10^3/uL (0.83-4.51); Absolute Neutrophil Count 3.3 X10^3/uL (2.0-7.7); Basophil# 0.01 X10^3/uL; Basophil% 0.2 % (0-1); Eosinophil# 0.14 X10^3/uL; Eosinophils% 2.1 % (0-5); Hematocrit 36.8 % (40-54); Lymphocyte # 2.57 X10^3/ul (4.0); Lymphocyte % 38.9 % (19-41); Mean Corp Hgb Conc 32.6 g/dL (32-36); Mean Corpuscular Hgb 25.8 pg (27.0-32.0); Mean Corpuscular Volume 79.1 fL (80-94); Mean Platelet Vol. 10.4 fl (6.2-12.0); Monocyte# 0.62 X10^3/uL; Monocyte% 9.4 % (0-10); NRBC Flagged by Analyzer 0 % (0-5); Neutrophil # 3.26 X10^3/uL (2.7-7.7); Neutrophil % 49.2 % (47-70); Platelet Count 157 K/mm3 (150-450); RBC Distribution Width CV 16.3 % (11.6-14.6); RBC Distribution Width SD 45.5 fl (35.1-43.9); Red Blood Count 4.65 M/mm3 (4.6-6.2); White Blood Count 6.6 K/mm3 (4.4-11.0)
[2018-10-08 03:18] LABS: International Normalized Ratio 1.1; Prothrombin Time (Protime)PT. 13.9 SECONDS (11.7-14.9)
[2018-10-08 03:23] LABS: Mucous, Urine 0 SEEN /hpf (<or=2+); Red Blood Cells-Urine 0 SEEN /hpf (0-5)
[2018-10-08 03:24] LABS: Color, Urine Yellow (Yellow); Glucose, Dipstick Normal (Normal); Ketone-Dipstick Negative (Negative); Leukocyte Esterase-Dipstick 25 /ul (Negative); Nitrite-Dipstick Negative (Negative); Occult Blood-Urine Negative /ul (Negative); Protein-Dipstick 15 mg/dl (Negative); Specific Gravity, Urine 1.005 (1.002-1.030); Urine Bilirubin Dipstick Negative (Negative); Urine Clarity Clear (Clear); Urine Urobilinogen Normal (Normal)
[2018-10-08 03:30] LABS: ALB/GLOB Ratio 0.6 RATIO (0.9-2.4); AST(SGOT) 15 U/L (15-37); Alanine Aminotransfer ALT/SGPT 21 U/L (16-61); Albumin, Serum 3.4 g/dL (3.2-5.0); Alkaline Phosphatase 283 U/L (45-117); Anion Gap 7 (5-15); BUN 23 mg/dL (7-18); BUN/Creat Ratio 55.4 RATIO (10-20); Chloride 103 mmol/L (98-107); Creatinine, Serum 0.42 mg/dL (0.70-1.30); EST Glomerular Filtration Rate 247 mL/min (>60); Est Glom Filt Rate - Afr Amer 299 mL/min (>60); Estimated Creatinine Clearance 259.31 ml/min; Globulin 5.7 g/dL (2.2-4.2); Glucose 84 mg/dL (74-106); Potassium 4.4 mmol/L (3.5-5.1); Protein, Total 9.1 g/dL (6.4-8.2); Sodium Level 138 mmol/L (136-145)
[2018-10-08 03:31] LABS: Lactic Acid 1.3 mmol/L (0.4-2.0)
--- NOTE | 2018-10-08 03:40 | CT_ITS ---
STUDY: CT ABDOMEN AND PELVIS WITHOUT CONTRAST REASON FOR EXAM: Male, 38 years old. Fever and tachycardia with abdominal distention RADIATION DOSAGE (If Supplied By Facility): CTDIvol = ( 17.13 ) mGy, DLP = ( 898.75 ) mGycm TECHNIQUE: Transaxial images were obtained from the dome of the diaphragm to the symphysis pubis without oral contrast, and without intravenous contrast. Sagittal and coronal images were reconstructed. Individualized dose optimization techniques were used for this CT. COMPARISON: CT abdomen and pelvis from 07/14/2018 FINDINGS: The visualized lung bases demonstrate bibasilar atelectasis. The visualized portions of the heart are within normal limits. Normal liver. The patient is status post cholecystectomy. Normal spleen. Normal pancreas. Normal bilateral adrenal glands. Normal right kidney. Normal left kidney. Gastric tube is present with balloon tip in the gastric lumen. There is a left lower quadrant ostomy visualized. No evidence for bowel obstruction. There is a left lower quadrant colostomy. Again visualized is dense impacted fecal material within Jamie's pouch. The appendix is visualized and appears normal. Normal abdominal aorta. Normal inferior vena cava. Normal retroperitoneum. The urinary bladder is drained with a Augustin catheter which is decompressed. There is moderate sized bilateral inguinal hernias. Normal abdominal wall. There is levoscoliosis of the lumbar spine. CT/Abdomen/Pelvis without Cont IMPRESSION: Negative unenhanced CT of the abdomen and pelvis for acute abnormality or interval change. Appropriately positioned gastric and Augustin tubes. Electronically Signed: Johnnyjairindio Mcdonnell, at 4:49 EDT Tel , Service support ,
[2018-10-08 03:49] LABS: Bacteria RARE /hpf (None Seen); Squamous Epithelial Cells - UA 0-5 SEEN /hpf (0-5); White Blood Cells 0-5 SEEN /hpf (0-5)
--- NOTE | 2018-10-08 04:00 | CT_ITS ---
STUDY: CTA CHEST REASON FOR EXAM: Male, 38 years old. Fever and tachycardia RADIATION DOSAGE (If Supplied By Facility): CTDIvol = ( 8.27 ) mGy, DLP = ( 424.40 ) mGycm TECHNIQUE: The examination was performed with the intravenous administration of 75M IV Isovue 370. Post-processing of the angiographic images was performed, with multiplanar reformation and 3D reconstruction. Individualized dose optimization techniques were used for this CT. COMPARISON: None. FINDINGS: Normal enhancement of the main pulmonary artery and right and left pulmonary arteries. Normal enhancement of the bilateral peripheral pulmonary arteries. There is no demonstrated pulmonary embolism. Normal thoracic aorta and visualized great vessels. There is no demonstrated aortic dissection. Normal heart and pericardium. Normal mediastinum. Normal hilar regions. Tracheostomy tube is present with tip in the mid trachea. Lungs demonstrate probable bibasilar linear atelectasis. There are no focal lung consolidation change. Normal pleura. Normal chest wall structures. Negative osseous structures. Normal visualized upper abdomen. There is a right Port-A-Cath with tip tracking into the SVC. CT/CTA Chest W/WO Contrast IMPRESSION: Negative CTA chest examination, without a demonstrated pulmonary embolism or arterial dissection. bibasilar lung atelectasis. No focal lung consolidation or changes. Electronically Signed: Dale Mcdonnell, at 4:43 EDT Tel , Service support ,
--- NOTE | 2018-10-08 05:00 | PCM.HP.STD ---
History of Present Illness Date of Admission: 10/08/18 Chief Complaint: fever, labored breathing The patient is a 38 year old M with a past medical history of cerebral palsy, seizure disorder and chronic respiratory failure on 2 L of oxygen at home. He is on portable ventilator at home. He was admitted to the ED on 10/08/2018 with a complaint of fever and labored breathing. History was taken from his parents. According to parents, last night they put him to bed he was stable and around his baseline. However in the early hours of the morning they realized that he was more agitated and felt warm to touch and was also having some labored breathing and was tachycardic. He was also tachypneic. According to parents he had had a cough but this was nonproductive. He had been using an CoughAssist machine at home which had been helping him expectorate when coughing. They have not noticed any increased secretions when suctioning his tracheostomy tube. He has not had any recent vomiting or nausea. According to parents, patient was admitted at [facility] from March to May of this year. He was admitted then for removal of the baclofen pump but procedure was complicated and eventually the pump was removed. He subsequently had numerous infections including pneumonia. He was discharged home on the portable ventilator. Review of systems was otherwise negative. In the ED, he was tachycardic with heart rate peaking at 125 was also tachypneic with respiratory rate of 22. He was afebrile. Chemistry was essentially unremarkable. Initial troponin was negative. CBC showed no leukocytosis. Chest x-ray showed no acute cardiopulmonary process and showed low lung volumes with accentuation of bronchovascular markings. CTA of the chest was negative for any PE and showed bibasilar lung atelectasis. Abdominopelvic CT showed no acute abnormality or interval change when showed appropriately positioned gastric and Augustin tubes. EKG showed normal sinus rhythm at T wave inversions in anterolateral leads, some of which have been present from EKGs in 2017. He has been admitted to be managed for positive sirs criteria with no clear source of infection. [] Past Medical History Past Medical History (Chronic Problems): Chronic Problems (Last Reviewed 10/03/18 @ 10:46 by REYNA Jose) Chronic respiratory failure (Chronic) Edema (Chronic) Nonrheumatic mitral valve prolapse (Chronic) Cerebral palsy (Chronic) Quadriplegic Severe mental retardation Chronic constipation PEG tube Medical History: Medical History (Last Reviewed 10/03/18 @ 10:46 by Valarie Kee NP-C) Chronic respiratory failure (Chronic) J96.10 Nonrheumatic mitral valve prolapse (Chronic) I34.1 Cerebral palsy (Chronic) G80.9 Quadriplegic Severe mental retardation Chronic constipation PEG tube Aspiration pneumonia J69.0 Debility R53.81 History of seizure disorder Z86.69 Obesity E66.9 Redundant colon Q43.[address] Z93.0 Severe sepsis A41.9, R65.20 Allergies cisapride monohydrate [From Propulsid] Allergy (Verified 10/08/18 03:03) Rash codeine Adverse Reaction (Verified 10/08/18 03:03) hallucinations metronidazole [From Flagyl] Adverse Reaction (Verified 10/08/18 03:03) Rash morphine Adverse Reaction (Verified 10/08/18 03:03) Hallucinations dust Allergy (Uncoded 10/03/18 10:28) Other Home Medications: Ambulatory Orders Medication Instructions Recorded Simethicone 40MG/0.6ML [Mylicon] 40 mg GT TID 11/09/13 Pantoprazole Sodium [Protonix] 20 ml GT BID 08/09/14 Senna/Docusate Sodium 5 ml GT DAILY 08/03/15 Polyethylene Glycol 3350 [Miralax] 17 gm GT DAILY 08/30/15 Magnesium Hydroxide [Milk Of 35 - 50 ml GT DAILY PRN PRN 12/20/15 Magnesia] Lactulose [Chronulac] 30 ml GT PRN PRN 06/01/16 Phenobarbital 60 mg GT BID 02/19/17 Cetirizine HCl [Zyrtec] 10 mg GT DAILY 02/04/18 Lactobacillus Acidophilus 1 cap GT DAILY 02/04/18 [Acidophilus] Baclofen 20 mg GT 4X/DAY 07/14/18 Gabapentin 300 mg PO 4X/DAY 07/14/18 oxygen concentrator #1 ea NS 08/29/18 metoclopramide 5 mg/5 mL oral 10 mg PO TID ml 09/16/18 solution potassium chloride 20 mEq/15 mL 15 meq PO DAILY PRN #450 ml 09/29/18 oral liquid Cough Assist #1 ea 09/30/18 Furosemide Liquid [Lasix Liquid] 40 mg PO DAILY 10/08/18 Lorazepam [Ativan] 1 mg GT PRN PRN 10/08/18 Surgical History: Surgical History (Last Reviewed 10/03/18 @ 10:46 by Valarie Kee NP-[place]) Colostomy in place Z93.3 Heel cord lengthening bilaterally History of colostomy History of gastrostomy tube placement History of open reduction and internal fixation (ORIF) procedure Z98.890 left hip History of soft tissue release Bilateral hips and knees Status post insertion of intrathecal baclofen pump Z96.89 Surgical History: noncontributory, - - Insertion of a baclofen pump with replacement x2 following, PEG tube, GJ tube, left lower quadrant colostomy, heel cord lengthening bilaterally, L hip ORIF, bilateral hip and knee soft tissue release. Psychiatric History: No pertinent psych hx Smoking Status: Never smoker - *Family History Maternal Family History: Family History (Last Reviewed 10/03/18 @ 10:46 by EMILEE JoseC) Mother Hypertension Hepatitis C Father Hypertension Atrial fibrillation CAD (coronary artery disease) History Items: - - Mother with history of hypertension hepatitis C. Paternal Family History: Family History (Last Reviewed 10/03/18 @ 10:46 by Valarie Kee NP-C) Mother Hypertension Hepatitis C Father Hypertension Atrial fibrillation CAD (coronary artery disease) History Items: - - Father with history of hypertension, coronary disease and atrial fibrillation. Review of Systems Cardiovascular: Reports: Palpitations Respiratory: Reports: Cough, Shortness of Breath. Denies: Shortness of breath upon exertion Gastrointestinal: Denies: Diarrhea, Vomiting Unable to obtain accurate/complete ROS d/t: unable to do comprehensive ROS o/a of cerebral palsy VTE Information - Inpt Only VTE Present on Admission: No VTE Pharm Prophylaxis ordered?: Yes Patient Problems: Active and Suspected Problems (Last Reviewed 10/03/18 @ 10:46 by Valarie Kee NP-[place]) SIRS (systemic inflammatory response syndrome) (Acute) - Physical Exam General: - - patient obtunded, not communicative HEENT: Atraumatic, PERRLA, EOMI Oral: Dry Mucosa Neck: Supple, No JVD, Negative Carotid Bruits Lungs: - - decreased breath sounds bibasally, with few crackles. on portable ventilator, via tracheostomy tube Cardiovascular: Regular rate, Regular Rhythm, Normal S1, Normal S2, No murmurs Abdomen: Bowel Sounds Present, Soft, Non Tender, - - has resolving surgical scar (site of baclofen pump which was removed). Has colostomy bag with scanty stool. Extremities: No clubbing, No cyanosis, - - mild 1+ bipedal pitting edema; legs are externally rotated Skin: No rashes, No breakdown Musculoskeletal: No Tenderness to Palpation of Joints or Extremities Lymphatic: No Cervical, Supraclavicular, or Inguinal Adenopathy Neurological: - - macroglossia, unresponsive and obtunded Vital Signs Temp Pulse Resp BP Pulse Ox 98.6 F 97 16 113/68 95 10/08/18 04:37 10/08/18 04:37 10/08/18 04:37 10/08/18 04:37 10/08/18 04:37 Oxygen Flow Rate (L/min) 4 Oxygen Delivery Method Mechanical Ventilator Weight: 166 lb 3.657 oz Body Mass Index (BMI) 34.7 Laboratory Tests Past 24 Hrs 10/08/18 10/08/18 10/08/18 03:00 03:00 03:00 WBC 6.6 RBC 4.65 Hgb 12.0 L Hct 36.8 L MCV 79.1 L MCH 25.8 L MCHC 32.6 RDW Std Deviation 45.5 H RDW Coeff of Emilee 16.3 H Plt Count 157 MPV 10.4 Immature Gran % (Auto) 0.200 Neut % (Auto) 49.2 Lymph % (Auto) 38.9 [place] % (Auto) 9.4 Eos % (Auto) 2.1 Baso % (Auto) 0.2 Absolute Neuts (auto) 3.3 Absolute Lymphs (auto) 2.57 Nucleated RBC % 0 PT 13.9 INR 1.1 Sodium 138 Potassium 4.4 Chloride 103 Carbon Dioxide 28.0 Anion Gap 7 BUN 23 H Creatinine 0.42 L Estim Creat Clear Calc 259.31 Est GFR (MDRD) Af Amer 299 Est GFR (MDRD) Non-Af 247 BUN/Creatinine Ratio 55.4 H Glucose 84 Lactic Acid Calcium 9.0 Total Bilirubin 0.20 AST 15 ALT 21 Alkaline Phosphatase 283 H Troponin I Total Protein 9.1 H Albumin 3.4 Globulin 5.7 H Albumin/Globulin Ratio 0.6 L Urine Color Urine Clarity Urine pH Ur Specific [place] Urine Protein Urine Glucose (UA) Urine Ketones Urine Occult Blood Urine Nitrite Urine Bilirubin Urine Urobilinogen Ur Leukocyte Esterase Urine RBC Urine WBC Ur Squamous Epith Cells Urine Bacteria Urine Mucus 10/08/18 10/08/18 10/08/18 03:00 03:00 03:00 WBC RBC Hgb Hct MCV MCH MCHC RDW Std Deviation RDW Coeff of [place] Plt Count MPV Immature Gran % (Auto) Neut % (Auto) Lymph % (Auto) [place] % (Auto) Eos % (Auto) Baso % (Auto) Absolute Neuts (auto) Absolute Lymphs (auto) Nucleated RBC % PT Cancelled INR Cancelled Sodium Potassium Chloride Carbon Dioxide Anion Gap BUN Creatinine Estim Creat Clear Calc Est GFR (MDRD) Af Amer Est GFR (MDRD) Non-Af BUN/Creatinine Ratio Glucose Lactic Acid 1.3 Calcium Total Bilirubin AST ALT Alkaline Phosphatase Troponin I < 0.015 Total Protein Albumin Globulin Albumin/Globulin Ratio Urine Color Urine Clarity Urine pH Ur Specific [place] Urine Protein Urine Glucose (UA) Urine Ketones Urine Occult Blood Urine Nitrite Urine Bilirubin Urine Urobilinogen Ur Leukocyte Esterase Urine RBC Urine WBC Ur Squamous Epith Cells Urine Bacteria Urine Mucus 10/08/18 03:20 WBC RBC Hgb Hct MCV MCH MCHC RDW Std Deviation RDW Coeff of [place]ilee Plt Count MPV Immature Gran % (Auto) Neut % (Auto) Lymph % (Auto) [place] % (Auto) Eos % (Auto) Baso % (Auto) Absolute Neuts (auto) Absolute Lymphs (auto) Nucleated RBC % PT INR Sodium Potassium Chloride Carbon Dioxide Anion Gap BUN Creatinine Estim Creat Clear Calc Est GFR (MDRD) Af Amer Est GFR (MDRD) Non-Af BUN/Creatinine Ratio Glucose Lactic Acid Calcium Total Bilirubin AST ALT Alkaline Phosphatase Troponin I Total Protein Albumin Globulin Albumin/Globulin Ratio Urine Color Yellow Urine Clarity Clear Urine pH 7.0 Ur Specific [place] 1.005 Urine Protein 15 H Urine Glucose (UA) Normal Urine Ketones Negative Urine Occult Blood Negative Urine Nitrite Negative Urine Bilirubin Negative Urine Urobilinogen Normal Ur Leukocyte Esterase 25 H Urine RBC 0 SEEN Urine WBC 0-5 SEEN Ur Squamous Epith Cells 0-5 SEEN Urine Bacteria RARE Urine Mucus 0 SEEN Diagnostic Data Chest X-Ray 10/08/18 03:04 IMPRESSION: Stable chest radiograph with low lung volumes and accentuation of bronchovascular markings. No focal lung consolidation changes or interval change. Electronically Signed: Dale Mcdonnell, at 3:35 EDT Tel , Service support , Abdomen/Pelvis CT 10/08/18 03:40 IMPRESSION: Negative unenhanced CT of the abdomen and pelvis for acute abnormality or interval change. Appropriately positioned gastric and Augustin tubes. Electronically Signed: Dale Mcdonnell, at 4:49 EDT Tel , Service support , Chest CTA 10/08/18 04:00 IMPRESSION: Negative CTA chest examination, without a demonstrated pulmonary embolism or arterial dissection. bibasilar lung atelectasis. No focal lung consolidation or changes. Electronically Signed: Dale Mcdonnell, at 4:43 EDT Tel , Service support , Assessment/Plan All Active Problems (Last Reviewed 10/03/18 @ 10:46 by Valarie Kee NP-C) SIRS (systemic inflammatory response syndrome) (Acute) Acute respiratory failure with hypoxia (Resolved) C. difficile colitis (Resolved) GJ malfunction (Resolved) Preop cardiovascular exam (Resolved) 1. SIRS c riteria, no clear source of infection admit to ICU cnsult respiratory therapy for chest physiotherapy Was in 3 to follow liters of oxygen at the time of review since he has been around his new baseline allergies Consult critical care Blood cultures and urine cultures were obtained. No clear source of infection so we will hold off on antibiotics for now. 2. Chronic respiratory failure: stable. Oxygen requirements are slightly increased, and he was tachypneic . No evidence of labored breawthing. Chest C T showed bilateral atelectasis had tracheostomy inserted at [facility] recently consult critical crae titrate oxygen to maintain sats>90% 3. History of cerebral palsy: On portable vent via tracheostomy tube. On oral baclofen 4. History of seizure disorder: Stable. On phenobarbital. 5. Obesity: Complicates current care, expected recovery and prognosis. Nutrition: tube feeding via gastrostomy tube. DVT prophylaxis: Lovenox Code Visit Inpatient E&M: [id number] Init Hosp L3
--- NOTE | 2018-10-08 06:24 | CON.PCM_ITS ---
Reason for Consult Date of Consultation: 10/08/18 Reason for Consultation: Chronic Respiratory Failure History of Present Illness: The patient is a 38-year-old male, with a history as outlined below, who presented to the emergency department on October 08 over concerns by his parents for a fever. His parents reported that upon awakening early this morning, the patient felt hot to the touch and had an elevated heart and respiratory rate. The patient has a history of cerebral palsy, spastic quadriplegia and chronic respiratory failure requiring home ventilator utilization. The patient is followed by Dr. Monsalve in the outpatient pulmonary clinic. The patient was just seen by our nurse practitioner in the pulmonary medicine clinic on October 03, at which time, the patient was noted to be stable from a respiratory perspective. The patient's mother and father did report that they did suction out some thin secretions last evening. The patient does utilize a cough assist device in his home environment 2-3 times per day. He is on SIMV mode on his noninvasive ventilator at baseline throughout the night. During the day, his mother reports that she has been able to wean his supplemental oxygen at times to room air. If he does require supplemental oxygen, it is typically at 2 L/min. On presentation to the emergency department, the patient was noted to be afebrile and hemodynamically stable. His presenting heart rate was noted to be 118 with a respiratory rate of 17. Laboratory evaluation revealed no evidence of a leukocytosis. The patient has baseline, chronic anemia. Chemistry profile was unremarkable. Urinalysis was not concerning for infection. A CT abdomen/pelvis was obtained which revealed bibasilar atelectasis without acute intra-abdominal pathology. CTA chest revealed no evidence for pulmonary embolism. Atelectasis was once again confirmed. No focal airspace opacity or consolidation was identified. The decision was made to admit the patient to the hospital over concerns for + SIRS criteria (respiratory rate greater than 20 on one occasion and elevated heart rate). The patient did receive supplemental IV fluids. Antibiotics were not administered, as there was no readily identifiable source of infection. Past Medical History Past Medical History (Chronic Problems): Chronic Problems (Last Reviewed 10/03/18 @ 10:46 by Valarie Kee NP-C) Chronic respiratory failure (Chronic) Edema (Chronic) Nonrheumatic mitral valve prolapse (Chronic) Cerebral palsy (Chronic) Quadriplegic Severe mental retardation Chronic constipation PEG tube Medical History: Medical History (Last Reviewed 10/03/18 @ 10:46 by Valarie Kee NP-C) Chronic respiratory failure (Chronic) J96.10 Nonrheumatic mitral valve prolapse (Chronic) I34.1 Cerebral palsy (Chronic) G80.9 Quadriplegic Severe mental retardation Chronic constipation PEG tube Aspiration pneumonia J69.0 Debility R53.81 History of seizure disorder Z86.69 Obesity E66.9 Redundant colon Q43.[address] Z93.0 Severe sepsis A41.9, R65.20 Allergies cisapride monohydrate [From Propulsid] Allergy (Verified 10/08/18 03:03) Rash codeine Adverse Reaction (Verified 10/08/18 03:03) hallucinations metronidazole [From Flagyl] Adverse Reaction (Verified 10/08/18 03:03) Rash morphine Adverse Reaction (Verified 10/08/18 03:03) Hallucinations dust Allergy (Uncoded 10/03/18 10:28) Other Home Medications: Ambulatory Orders Medication Instructions Recorded Simethicone 40MG/0.6ML [Mylicon] 40 mg GT TID 11/09/13 Pantoprazole Sodium [Protonix] 20 ml GT BID 08/09/14 Senna/Docusate Sodium 5 ml GT DAILY 08/03/15 Polyethylene Glycol 3350 [Miralax] 17 gm GT DAILY 08/30/15 Magnesium Hydroxide [Milk Of 35 - 50 ml GT DAILY PRN PRN 12/20/15 Magnesia] Lactulose [Chronulac] 30 ml GT BID PRN 06/01/16 Phenobarbital 60 mg GT BID 02/19/17 Cetirizine HCl [Zyrtec] 10 mg GT DAILY 02/04/18 Lactobacillus Acidophilus 1 cap GT DAILY 02/04/18 [Acidophilus] Baclofen 20 mg GT 4X/DAY 07/14/18 Gabapentin 300 mg PO 4X/DAY 07/14/18 oxygen concentrator #1 ea NS 08/29/18 metoclopramide 5 mg/5 mL oral 10 mg PO TID ml 09/16/18 solution potassium chloride 20 mEq/15 mL 15 meq PO DAILY PRN #450 ml 09/29/18 oral liquid Cough Assist #1 ea 09/30/18 Furosemide Liquid [Lasix Liquid] 40 mg PO DAILY 10/08/18 Lorazepam [Ativan] 1 mg GT Q8 PRN 10/08/18 Surgical History: Surgical History (Last Reviewed 10/03/18 @ 10:46 by Valarie Kee NP-C) Colostomy in place Z93.3 Heel cord lengthening bilaterally History of colostomy History of gastrostomy tube placement History of open reduction and internal fixation (ORIF) procedure Z98.890 left hip History of soft tissue release Bilateral hips and knees Status post insertion of intrathecal baclofen pump Z96.89 Surgical History: noncontributory, - - Insertion of a baclofen pump with replacement x2 following, PEG tube, GJ tube, left lower quadrant colostomy, heel cord lengthening bilaterally, L hip ORIF, bilateral hip and knee soft tissue release. Psychiatric History: No pertinent psych hx Smoking Status: Never smoker - *Family History Maternal Family History: Family History (Last Reviewed 10/03/18 @ 10:46 by EMILEE JoseC) Mother Hypertension Hepatitis C Father Hypertension Atrial fibrillation CAD (coronary artery disease) History Items: - - Mother with history of hypertension hepatitis C. Paternal Family History: Family History (Last Reviewed 10/03/18 @ 10:46 by Valarie Kee NP-C) Mother Hypertension Hepatitis C Father Hypertension Atrial fibrillation CAD (coronary artery disease) History Items: - - Father with history of hypertension, coronary disease and atrial fibrillation. Review of Systems Unable to obtain accurate/complete ROS d/t: Unable to obtain due to baseline cerebral palsy. Patient Problems: Active and Suspected Problems (Last Reviewed 10/03/18 @ 10:46 by Valarie Kee NP-C) Viral syndrome (Acute) Objective: The patient's most recent lab work, culture data and imaging studies have all been personally reviewed. Blood and urine cultures are pending. - Physical Exam General: No apparent distress, - - Resting comfortably in bed. No respiratory distress. HEENT: Atraumatic, Normocephalic Oral: Moist Mucosa Neck: Supple, No Nodes, Trachea Midline, - - Tracheostomy site intact Lungs: Diminished, - - Baseline work of breathing Cardiovascular: Regular rate, Regular Rhythm, Normal S1, Normal S2 Abdomen: Bowel Sounds Present, Soft, - - +PEG Extremities: No clubbing, No cyanosis, Edema, - - Contracted extremities Skin: No breakdown Musculoskeletal: - - Exaggerated kyphoscoliosis Lymphatic: No Cervical, Supraclavicular, or Inguinal Adenopathy Neurological: - - Spastic quadriplegia. Non-conversational. Does not follow commands. Psych/Mental Status: Flat Affect Vital Signs Temp Pulse Resp BP Pulse Ox 97.5 F L 94 14 105/72 95 10/08/18 06:00 10/08/18 06:15 10/08/18 06:15 10/08/18 06:15 10/08/18 06:15 Oxygen Flow Rate (L/min) 4 Oxygen Delivery Method Mechanical Ventilator Weight: 161 lb 13.109 oz Body Mass Index (BMI) 34.0 Intake and Output for Last 24 Hours 10/06/18 10/07/18 10/08/18 23:59 23:59 23:59 Output Total 200 / 200 Balance -200 / -200 Laboratory Tests Past 24 Hrs 10/08/18 10/08/18 10/08/18 03:00 03:00 03:00 WBC 6.6 RBC 4.65 Hgb 12.0 L Hct 36.8 L MCV 79.1 L MCH 25.8 L MCHC 32.6 RDW Std Deviation 45.5 H RDW Coeff of Emilee 16.3 H Plt Count 157 MPV 10.4 Immature Gran % (Auto) 0.200 Neut % (Auto) 49.2 Lymph % (Auto) 38.9 [place] % (Auto) 9.4 Eos % (Auto) 2.1 Baso % (Auto) 0.2 Absolute Neuts (auto) 3.3 Absolute Lymphs (auto) 2.57 Nucleated RBC % 0 PT 13.9 INR 1.1 Sodium 138 Potassium 4.4 Chloride 103 Carbon Dioxide 28.0 Anion Gap 7 BUN 23 H Creatinine 0.42 L Estim Creat Clear Calc 259.31 Est GFR (MDRD) Af Amer 299 Est GFR (MDRD) Non-Af 247 BUN/Creatinine Ratio 55.4 H Glucose 84 Lactic Acid Calcium 9.0 Total Bilirubin 0.20 AST 15 ALT 21 Alkaline Phosphatase 283 H Troponin I Total Protein 9.1 H Albumin 3.4 Globulin 5.7 H Albumin/Globulin Ratio 0.6 L Urine Color Urine Clarity Urine pH Ur Specific [place] Urine Protein Urine Glucose (UA) Urine Ketones Urine Occult Blood Urine Nitrite Urine Bilirubin Urine Urobilinogen Ur Leukocyte Esterase Urine RBC Urine WBC Ur Squamous Epith Cells Urine Bacteria Urine Mucus 10/08/18 10/08/18 10/08/18 03:00 03:00 03:00 WBC RBC Hgb Hct MCV MCH MCHC RDW Std Deviation RDW Coeff of Emilee Plt Count MPV Immature Gran % (Auto) Neut % (Auto) Lymph % (Auto) [place] % (Auto) Eos % (Auto) Baso % (Auto) Absolute Neuts (auto) Absolute Lymphs (auto) Nucleated RBC % PT Cancelled INR Cancelled Sodium Potassium Chloride Carbon Dioxide Anion Gap BUN Creatinine Estim Creat Clear Calc Est GFR (MDRD) Af Amer Est GFR (MDRD) Non-Af BUN/Creatinine Ratio Glucose Lactic Acid 1.3 Calcium Total Bilirubin AST ALT Alkaline Phosphatase Troponin I < 0.015 Total Protein Albumin Globulin Albumin/Globulin Ratio Urine Color Urine Clarity Urine pH Ur Specific [place] Urine Protein Urine Glucose (UA) Urine Ketones Urine Occult Blood Urine Nitrite Urine Bilirubin Urine Urobilinogen Ur Leukocyte Esterase Urine RBC Urine WBC Ur Squamous Epith Cells Urine Bacteria Urine Mucus 10/08/18 03:20 WBC RBC Hgb Hct MCV MCH MCHC RDW Std Deviation RDW Coeff of Emilee Plt Count MPV Immature Gran % (Auto) Neut % (Auto) Lymph % (Auto) [place] % (Auto) Eos % (Auto) Baso % (Auto) Absolute Neuts (auto) Absolute Lymphs (auto) Nucleated RBC % PT INR Sodium Potassium Chloride Carbon Dioxide Anion Gap BUN Creatinine Estim Creat Clear Calc Est GFR (MDRD) Af Amer Est GFR (MDRD) Non-Af BUN/Creatinine Ratio Glucose Lactic Acid Calcium Total Bilirubin AST ALT Alkaline Phosphatase Troponin I Total Protein Albumin Globulin Albumin/Globulin Ratio Urine Color Yellow Urine Clarity Clear Urine pH 7.0 Ur Specific [place] 1.005 Urine Protein 15 H Urine Glucose (UA) Normal Urine Ketones Negative Urine Occult Blood Negative Urine Nitrite Negative Urine Bilirubin Negative Urine Urobilinogen Normal Ur Leukocyte Esterase 25 H Urine RBC 0 SEEN Urine WBC 0-5 SEEN Ur Squamous Epith Cells 0-5 SEEN Urine Bacteria RARE Urine Mucus 0 SEEN Clinical Impression(s) from Imaging Studies Chest X-Ray 10/08/18 03:04 IMPRESSION: Stable chest radiograph with low lung volumes and accentuation of bronchovascular markings. No focal lung consolidation changes or interval change. Electronically Signed: Dale Mcdonnell, at 3:35 EDT Tel , Service support , Abdomen/Pelvis CT 10/08/18 03:40 IMPRESSION: Negative unenhanced CT of the abdomen and pelvis for acute abnormality or interval change. Appropriately positioned gastric and Augustin tubes. Electronically Signed: Dale Mcdonnell, at 4:49 EDT Tel , Service support , Chest CTA 10/08/18 04:00 IMPRESSION: Negative CTA chest examination, without a demonstrated pulmonary embolism or arterial dissection. bibasilar lung atelectasis. No focal lung consolidation or changes. Electronically Signed: Dale Mcdonnell, at 4:43 EDT Tel , Service support , Assessment/Plan Active and Suspected Problems (Last Reviewed 10/03/18 @ 10:46 by Valarie Kee NP-C) Viral syndrome (Acute) RECOMMENDATIONS: 1. Continue home medications. 2. Continue use of noninvasive ventilator per home regimen. 3. Continue appropriate prophylaxis. 4. At the current time, the patient has no ICU needs. IMPRESSIONS: 1. Chronic respiratory failure The patient has baseline cerebral palsy and spastic quadriplegia with a trach/PEG in place. He utilizes a noninvasive ventilator on an outpatient basis. At the current time, the patient's respiratory state appears to be baseline. Unclear if there was a component of mucous plugging that may have contributed to his symptoms last evening. There is no readily identifiable pulmonary source of infection. Continue noninvasive ventilator support per outpatient regimen. Continue bronchopulmonary hygiene. The patient's family was informed that if they wish to continue with the CoughAssist, they would need to bring the device into the hospital. 2. Subjective fever On arrival to the ED, the patient's parents reported the presence of a fever. However, the patient has been afebrile since his arrival to the hospital. While the patient was admitted over concerns for SIRS criteria (elevated respiratory rate and heart rate), the patient had no evidence of an elevated white blood cell count or any identifiable source of infection on urinalysis, CT abdomen/pelvis and CTA chest. Based upon the most recent revised definitions for sepsis, the systemic inflammatory response syndrome is no longer included in the definition since it is not always caused by infection. I agree that I do not feel that antibiotics are indicated at this time. 3. Cerebral palsy/seizure disorder/spastic quadriplegia Complicates care, management, recovery and prognosis. Continue home medications as indicated. This note was generated with [email or web address] software. It may contain incorrect words, spelling, and punctuation that were not noted in checking the note before signing. Code Visit Inpatient E&M: 31330 Init Hosp L3
[2018-10-08] MEDS: Simethicone 40MG/0.6ML Bottle 40 MG GT (06:49)
[2018-10-08] MEDS: Gabapentin 300 MG Capsule GT (06:49)
[2018-10-08] MEDS: Baclofen 10 MG Tablet 20 MG GT (06:49)
--- NOTE | 2018-10-08 08:20 | DCINST_ITS ---
- Discharge Diagnoses Current Active Problems: Current Active and Chronic Problems (Last Reviewed 10/03/18 @ 10:46 by REYNA Jose) SIRS (systemic inflammatory response syndrome) (Acute) Chronic respiratory failure (Chronic) Allergies/Adverse Reactions: Allergies cisapride monohydrate [From Propulsid] Allergy (Verified 10/08/18 03:03) Rash codeine Adverse Reaction (Verified 10/08/18 03:03) hallucinations metronidazole [From Flagyl] Adverse Reaction (Verified 10/08/18 03:03) Rash morphine Adverse Reaction (Verified 10/08/18 03:03) Hallucinations dust Allergy (Uncoded 10/03/18 10:28) Other Medications to take at Discharge Simethicone 40MG/0.6ML [Mylicon] 40 mg GT TID 11/09/13 Pantoprazole Sodium [Protonix] 20 ml GT BID 08/09/14 Senna/Docusate Sodium 5 ml GT DAILY 08/03/15 Polyethylene Glycol 3350 [Miralax] 17 gm GT DAILY 08/30/15 Magnesium Hydroxide [Milk Of Magnesia] 35 - 50 ml GT DAILY PRN PRN 12/20/15 Lactulose [Chronulac] 30 ml GT BID PRN 06/01/16 Phenobarbital 60 mg GT BID 02/19/17 Cetirizine HCl [Zyrtec] 10 mg GT DAILY 02/04/18 Lactobacillus Acidophilus [Acidophilus] 1 cap GT DAILY 02/04/18 Baclofen 20 mg GT 4X/DAY 07/14/18 Gabapentin 300 mg PO 4X/DAY 07/14/18 oxygen concentrator #1 ea NS 08/29/18 metoclopramide 5 mg/5 mL oral solution 10 mg PO TID ml 09/16/18 potassium chloride 20 mEq/15 mL oral liquid 15 meq PO DAILY PRN #450 ml 09/29/18 Cough Assist #1 ea 09/30/18 Furosemide Liquid [Lasix Liquid] 40 mg PO DAILY 10/08/18 Lorazepam [Ativan] 1 mg GT Q8 PRN 10/08/18 Primary Care Physician: Timmy Severino MD [Primary Care Provider] - Please follow up with your Primary Care Physician in: in 1-2 weeks Test Results: Test results from this visit will be discussed in further detail at your follow- up appointment, if applicable. Proposed Discharge Date: 10/08/18
--- NOTE | 2018-10-08 08:27 | PCM.DC.SUM ---
Discharge Date and Diagnosis - Problem List Patient Problems: Active and Suspected Problems (Last Reviewed 10/03/18 @ 10:46 by REYNA Jose) Viral syndrome (Acute) SIRS (systemic inflammatory response syndrome) (Acute) Date of Admission: 10/08/18 Date of Discharge: 10/08/18 - Primary Discharge Diagnosis Active and Suspected Problems (Last Reviewed 10/03/18 @ 10:46 by REYNA Joes) Acute febrile illness suspected to be secondary to viral syndrome SIRS (systemic inflammatory response syndrome) (Acute) - Secondary Discharge Diagnosis Chronic Problems (Last Reviewed 10/03/18 @ 10:46 by REYNA Jose) Chronic respiratory failure (Chronic) Edema (Chronic) Nonrheumatic mitral valve prolapse (Chronic) Cerebral palsy (Chronic) Quadriplegic Severe mental retardation Chronic constipation PEG tube Hospital Course and Treatment Imaging Results: Clinical Impression(s) from Imaging Studies Chest X-Ray 10/08/18 03:04 IMPRESSION: Stable chest radiograph with low lung volumes and accentuation of bronchovascular markings. No focal lung consolidation changes or interval change. Electronically Signed: Dale Mcdonnell, at 3:35 EDT Tel , Service support , Abdomen/Pelvis CT 10/08/18 03:40 IMPRESSION: Negative unenhanced CT of the abdomen and pelvis for acute abnormality or interval change. Appropriately positioned gastric and Augustin tubes. Electronically Signed: Dale Mcdonnell, at 4:49 EDT Tel , Service support , Chest CTA 10/08/18 04:00 IMPRESSION: Negative CTA chest examination, without a demonstrated pulmonary embolism or arterial dissection. bibasilar lung atelectasis. No focal lung consolidation or changes. Electronically Signed: Dale Mcdonnell, at 4:43 EDT Tel , Service support , Operations: None Summary of Care Provided: The patient is a 38-year-old gentleman with history of cerebral palsy and subsequently any disability who presented acute febrile illness 1. Acute febrile illness this was thought to be secondary to acute viral syndrome admitted to the hospital managed with IV fluids. Patient symptoms did improve Case was discussed with manufacturing shift supervisor Dr. Moreira as well as patient's mom. Decision was made to send patient back home 2. Cerebral palsy supportive care 3. Chronic respiratory failure patient has a tracheostomy. Placed on oxygen titrated to keep oxygen saturation greater than 90 4. Status post gastrostomy tube 5. Seizure disorder is on phenobarbital 6. DVT prophylaxis SC Lovenox Patient Problems: Active and Suspected Problems (Last Reviewed 10/03/18 @ 10:46 by Valarie Kee, SRINIVAS-C) Viral syndrome (Acute) SIRS (systemic inflammatory response syndrome) (Acute) Objective: GENERAL: Appears comfortable HEENT: Atraumatic; EYES; Anicteric, RESPIRATORY: Diminished to auscultation - Physical Exam Vital Signs Temp Pulse Resp BP Pulse Ox 96.9 F L 88 12 95/60 95 10/08/18 08:00 10/08/18 08:00 10/08/18 08:00 10/08/18 08:00 10/08/18 08:00 Oxygen Flow Rate (L/min) 4 Oxygen Delivery Method Mechanical Ventilator Weight: 73.4 kg Body Mass Index (BMI) 34.0 Intake and Output for Last 24 Hours 10/06/18 10/07/18 10/08/18 23:59 23:59 23:59 Output Total 200 / 200 Balance -200 / -200 Laboratory Tests Past 24 Hrs 10/08/18 10/08/18 10/08/18 03:00 03:00 03:00 WBC 6.6 RBC 4.65 Hgb 12.0 L Hct 36.8 L MCV 79.1 L MCH 25.8 L MCHC 32.6 RDW Std Deviation 45.5 H RDW Coeff of [place] 16.3 H Plt Count 157 MPV 10.4 Immature Gran % (Auto) 0.200 Neut % (Auto) 49.2 Lymph % (Auto) 38.9 [place] % (Auto) 9.4 Eos % (Auto) 2.1 Baso % (Auto) 0.2 Absolute Neuts (auto) 3.3 Absolute Lymphs (auto) 2.57 Nucleated RBC % 0 PT 13.9 INR 1.1 Sodium 138 Potassium 4.4 Chloride 103 Carbon Dioxide 28.0 Anion Gap 7 BUN 23 H Creatinine 0.42 L Estim Creat Clear Calc 259.31 Est GFR (MDRD) Af Amer 299 Est GFR (MDRD) Non-Af 247 BUN/Creatinine Ratio 55.4 H Glucose 84 Lactic Acid Calcium 9.0 Total Bilirubin 0.20 AST 15 ALT 21 Alkaline Phosphatase 283 H Troponin I Total Protein 9.1 H Albumin 3.4 Globulin 5.7 H Albumin/Globulin Ratio 0.6 L Urine Color Urine Clarity Urine pH Ur Specific [place] Urine Protein Urine Glucose (UA) Urine Ketones Urine Occult Blood Urine Nitrite Urine Bilirubin Urine Urobilinogen Ur Leukocyte Esterase Urine RBC Urine WBC Ur Squamous Epith Cells Urine Bacteria Urine Mucus 10/08/18 10/08/18 10/08/18 03:00 03:00 03:00 WBC RBC Hgb Hct MCV MCH MCHC RDW Std Deviation RDW Coeff of Emilee Plt Count MPV Immature Gran % (Auto) Neut % (Auto) Lymph % (Auto) [place] % (Auto) Eos % (Auto) Baso % (Auto) Absolute Neuts (auto) Absolute Lymphs (auto) Nucleated RBC % PT Cancelled INR Cancelled Sodium Potassium Chloride Carbon Dioxide Anion Gap BUN Creatinine Estim Creat Clear Calc Est GFR (MDRD) Af Amer Est GFR (MDRD) Non-Af BUN/Creatinine Ratio Glucose Lactic Acid 1.3 Calcium Total Bilirubin AST ALT Alkaline Phosphatase Troponin I < 0.015 Total Protein Albumin Globulin Albumin/Globulin Ratio Urine Color Urine Clarity Urine pH Ur Specific [place] Urine Protein Urine Glucose (UA) Urine Ketones Urine Occult Blood Urine Nitrite Urine Bilirubin Urine Urobilinogen Ur Leukocyte Esterase Urine RBC Urine WBC Ur Squamous Epith Cells Urine Bacteria Urine Mucus 10/08/18 03:20 WBC RBC Hgb Hct MCV MCH MCHC RDW Std Deviation RDW Coeff of Emilee Plt Count MPV Immature Gran % (Auto) Neut % (Auto) Lymph % (Auto) [place] % (Auto) Eos % (Auto) Baso % (Auto) Absolute Neuts (auto) Absolute Lymphs (auto) Nucleated RBC % PT INR Sodium Potassium Chloride Carbon Dioxide Anion Gap BUN Creatinine Estim Creat Clear Calc Est GFR (MDRD) Af Amer Est GFR (MDRD) Non-Af BUN/Creatinine Ratio Glucose Lactic Acid Calcium Total Bilirubin AST ALT Alkaline Phosphatase Troponin I Total Protein Albumin Globulin Albumin/Globulin Ratio Urine Color Yellow Urine Clarity Clear Urine pH 7.0 Ur Specific [place] 1.005 Urine Protein 15 H Urine Glucose (UA) Normal Urine Ketones Negative Urine Occult Blood Negative Urine Nitrite Negative Urine Bilirubin Negative Urine Urobilinogen Normal Ur Leukocyte Esterase 25 H Urine RBC 0 SEEN Urine WBC 0-5 SEEN Ur Squamous Epith Cells 0-5 SEEN Urine Bacteria RARE Urine Mucus 0 SEEN Home Medications: Medications to take at Discharge Simethicone 40MG/0.6ML [Mylicon] 40 mg GT TID 11/09/13 Pantoprazole Sodium [Protonix] 20 ml GT BID 08/09/14 Senna/Docusate Sodium 5 ml GT DAILY 08/03/15 Polyethylene Glycol 3350 [Miralax] 17 gm GT DAILY 08/30/15 Magnesium Hydroxide [Milk Of Magnesia] 35 - 50 ml GT DAILY PRN PRN 12/20/15 Lactulose [Chronulac] 30 ml GT BID PRN 06/01/16 Phenobarbital 60 mg GT BID 02/19/17 Cetirizine HCl [Zyrtec] 10 mg GT DAILY 02/04/18 Lactobacillus Acidophilus [Acidophilus] 1 cap GT DAILY 02/04/18 Baclofen 20 mg GT 4X/DAY 07/14/18 Gabapentin 300 mg PO 4X/DAY 07/14/18 oxygen concentrator #1 ea NS 08/29/18 metoclopramide 5 mg/5 mL oral solution 10 mg PO TID ml 09/16/18 potassium chloride 20 mEq/15 mL oral liquid 15 meq PO DAILY PRN #450 ml 09/29/18 Cough Assist #1 ea 09/30/18 Furosemide Liquid [Lasix Liquid] 40 mg PO DAILY 10/08/18 Lorazepam [Ativan] 1 mg GT Q8 PRN 10/08/18 Primary Care Physician: Timmy Severino MD [Primary Care Provider] - Please follow up with your Primary Care Physician in: in 1-2 weeks Disposition: Home Minutes spent on discharge:: 38 Medical Necessity - Tobacco Use Smoking Status: Never smoker Meaningful Use Info Meaningful Use Diagnoses (Choose all that apply): None applicable Code Visit OBSV E&M: 37343 Subsequent observation care L3
--- NOTE | 2018-10-08 08:56 | CPS ---
pt on home vent settings on home ventilator: SIMV RR 1 PS 10 Peep 8 TV 350, continue home vent & settings per Dr. Moreira.
[2018-10-08] MEDS: 0.9% NaCl VAD Flush IV (09:07)
== END 2018-10-08 09:45 | disposition home or self-care (01) ==
LOC: ED 05:02 → ICU 07:16
PROVIDERS: Admitting Provider Student in an Organized Health Care Education/Training Program; Emergency Provider Emergency Medicine; Family Provider Family Medicine; PCP Family Medicine; Visit Provider Internal Medicine
DX: B34.9 Viral infection, unspecified (principal); R65.10 Systemic inflammatory response syndrome (SIRS) of non-infectious origin without acute organ dysfunction; J96.10 Chronic respiratory failure, unspecified whether with hypoxia or hypercapnia; G80.9 Cerebral palsy, unspecified; G40.909 Epilepsy, unspecified, not intractable, without status epilepticus; G82.50 Quadriplegia, unspecified; F72 Severe intellectual disabilities; K59.09 Other constipation; R53.81 Other malaise; E66.9 Obesity, unspecified; Q43.8 Other specified congenital malformations of intestine; Z68.34 Body mass index [BMI] 34.0-34.9, adult; Z79.899 Other long term (current) drug therapy; Z93.1 Gastrostomy status; Z93.3 Colostomy status; Z99.81 Dependence on supplemental oxygen
CPT/HCPCS: 36591; 51702; 71045; 71275; 74176; 80053; 81001; 83605; 84484; 85025; 85610; 87040; 87086; 93005; 96360; 96361; 99285; J7030; Q9967; A4216

== ENCOUNTER 2018-10-18 09:04 | Outpatient (RCR) | payer BC, MEDICAID, SELFPAY ==
[2018-09-16 08:24] VITALS: BMI 30.7
[2018-10-08 05:34] VITALS: BMI 34.0
== END 2018-10-22 23:59 ==
LOC: NS 09:04
PROVIDERS: Family Provider Family Medicine; PCP Family Medicine; Visit Provider Internal Medicine Critical Care Medicine
DX: Z93.1 Gastrostomy status (principal); Z71.3 Dietary counseling and surveillance

== ENCOUNTER → 2018-11-10 14:36 | Outpatient (CLI) | payer BC, MEDICAID, SELFPAY ==
[2018-10-08 05:34] VITALS: BMI 34.0
[2018-11-10 15:24] LABS: Anion Gap 4 (5-15); BUN 15 mg/dL (7-18); BUN/Creat Ratio 57.5 RATIO (10-20); Calcium,Total 8.4 mg/dL (8.5-10.1); Chloride 106 mmol/L (98-107); Creatinine, Serum 0.26 mg/dL (0.70-1.30); EST Glomerular Filtration Rate 422 mL/min (>60); Est Glom Filt Rate - Afr Amer 510 mL/min (>60); Glucose 92 mg/dL (74-106); Potassium 3.9 mmol/L (3.5-5.1); Sodium Level 141 mmol/L (136-145)
== END ==
PROVIDERS: Family Provider Family Medicine; PCP Family Medicine; Referring Provider Internal Medicine Cardiovascular Disease; Visit Provider Internal Medicine Cardiovascular Disease
DX: B34.9 Viral infection, unspecified (principal); R65.10 Systemic inflammatory response syndrome (SIRS) of non-infectious origin without acute organ dysfunction; J96.10 Chronic respiratory failure, unspecified whether with hypoxia or hypercapnia; R60.9 Edema, unspecified; I34.1 Nonrheumatic mitral (valve) prolapse; G80.9 Cerebral palsy, unspecified
CPT/HCPCS: 80048

== ENCOUNTER 2018-11-21 08:30 | Outpatient (RCR) | payer BC, MEDICAID, SELFPAY ==
[2018-10-08 05:34] VITALS: BMI 34.0
== END 2018-11-21 23:59 ==
LOC: NS 08:30
PROVIDERS: Family Provider Family Medicine; PCP Family Medicine; Visit Provider Internal Medicine Critical Care Medicine
DX: Z93.1 Gastrostomy status (principal)

== ENCOUNTER 2018-12-09 13:52 | Outpatient (RCR) | payer BC, MEDICAID, SELFPAY ==
[2018-10-08 05:34] VITALS: BMI 34.0
[2018-12-09 14:25] LABS: Anion Gap 3 (5-15); BUN 18 mg/dL (7-18); BUN/Creat Ratio 50.8 RATIO (10-20); Calcium,Total 8.5 mg/dL (8.5-10.1); Chloride 103 mmol/L (98-107); Creatinine, Serum 0.35 mg/dL (0.70-1.30); EST Glomerular Filtration Rate 297 mL/min (>60); Est Glom Filt Rate - Afr Amer 359 mL/min (>60); Glucose 69 mg/dL (74-106); Potassium 3.8 mmol/L (3.5-5.1); Sodium Level 138 mmol/L (136-145)
== END 2018-12-22 23:59 ==
LOC: LAB.FUTURE 13:52
PROVIDERS: Family Provider Family Medicine; PCP Family Medicine; Referring Provider Internal Medicine Cardiovascular Disease; Visit Provider Internal Medicine Cardiovascular Disease
DX: R60.9 Edema, unspecified (principal); B34.9 Viral infection, unspecified; R65.10 Systemic inflammatory response syndrome (SIRS) of non-infectious origin without acute organ dysfunction; J96.10 Chronic respiratory failure, unspecified whether with hypoxia or hypercapnia; I34.1 Nonrheumatic mitral (valve) prolapse; G80.9 Cerebral palsy, unspecified
CPT/HCPCS: 36415; 80048

== ENCOUNTER → 2018-12-15 14:15 | Outpatient (CLI) | payer BC, MEDICAID, SELFPAY ==
[2018-10-08 05:34] VITALS: BMI 34.0
[2018-12-15 14:44] LABS: Absolute Lymphocyte Count 1.89 X10^3/uL (0.83-4.51); Absolute Neutrophil Count 2.7 X10^3/uL (2.0-7.7); Basophil# 0.01 X10^3/uL; Basophil% 0.2 % (0-1); Eosinophil# 0.21 X10^3/uL; Hematocrit 37.1 % (40-54); Hemoglobin 11.8 g/dL (13.0-16.5); Lymphocyte # 1.89 X10^3/ul (4.0); Lymphocyte % 36.1 % (19-41); Mean Corp Hgb Conc 31.8 g/dL (32-36); Mean Corpuscular Hgb 26.5 pg (27.0-32.0); Mean Corpuscular Volume 83.4 fL (80-94); Mean Platelet Vol. 10.5 fl (6.2-12.0); Monocyte# 0.48 X10^3/uL; Monocyte% 9.2 % (0-10); NRBC Flagged by Analyzer 0 % (0-5); Neutrophil # 2.65 X10^3/uL (2.7-7.7); Neutrophil % 50.5 % (47-70); Platelet Count 167 K/mm3 (150-450); Red Blood Count 4.45 M/mm3 (4.6-6.2); White Blood Count 5.2 K/mm3 (4.4-11.0)
[2018-12-15 15:02] LABS: Vitamin B12 1037 pg/mL (211-911); Vitamin D,25 Hydroxy 22.4 ng/mL (29.95-100.01)
[2018-12-15 15:39] LABS: ALB/GLOB Ratio 0.6 RATIO (0.9-2.4); AST(SGOT) 17 U/L (15-37); Alanine Aminotransfer ALT/SGPT 22 U/L (16-61); Alkaline Phosphatase 196 U/L (45-117); Anion Gap 6 (5-15); BUN 18 mg/dL (7-18); BUN/Creat Ratio 62.9 RATIO (10-20); Calcium,Total 8.1 mg/dL (8.5-10.1); Chloride 106 mmol/L (98-107); Creatinine, Serum 0.29 mg/dL (0.70-1.30); EST Glomerular Filtration Rate 379 mL/min (>60); Est Glom Filt Rate - Afr Amer 459 mL/min (>60); Ferritin 19 ng/mL (26-388); Globulin 4.9 g/dL (2.2-4.2); Glucose 75 mg/dL (74-106); Iron 45 ug/dL (65-175); Iron Binding Capacity,Total 290 ug/dL (250-450); Magnesium 2.2 mg/dL (1.6-2.6); Phosphorus 4.4 mg/dL (2.5-4.9); Potassium 3.8 mmol/L (3.5-5.1); Prealbumin 25.1 mg/dL (20.0-40.0); Protein, Total 7.9 g/dL (6.4-8.2); Sodium Level 140 mmol/L (136-145)
== END ==
PROVIDERS: Family Provider Family Medicine; PCP Family Medicine; Referring Provider Family Medicine; Visit Provider Family Medicine
DX: K21.9 Gastro-esophageal reflux disease without esophagitis (principal); D64.9 Anemia, unspecified; Z78.9 Other specified health status; M81.0 Age-related osteoporosis without current pathological fracture
CPT/HCPCS: 80053; 82306; 82607; 82728; 82746; 83540; 83550; 83735; 84100; 84134; 85025

== ENCOUNTER → 2018-12-21 12:34 | Outpatient (CLI) | payer BC, MEDICAID, SELFPAY ==
[2018-10-08 05:34] VITALS: BMI 34.0
[2018-12-23 12:24] LABS: Zinc, Plasma or Serum 73 ug/dL (56-134)
== END ==
PROVIDERS: Family Provider Family Medicine; PCP Family Medicine; Referring Provider Family Medicine; Visit Provider Family Medicine
DX: D64.9 Anemia, unspecified (principal); Z78.9 Other specified health status; M81.0 Age-related osteoporosis without current pathological fracture; K21.9 Gastro-esophageal reflux disease without esophagitis
CPT/HCPCS: 84630

== ENCOUNTER 2018-12-25 13:32 | Inpatient (IN) | payer BC, MEDICAID, SELFPAY ==
[2018-10-08 05:34] VITALS: BMI 34.0
[2018-12-25] VITALS (19 sets, daily range): BP systolic 104–174; BP diastolic 71–96; PULSE 82–116; RESP 11–26; TEMP 36.1–36.9; O2SAT 91–99; BMI 30.8; BMI 31.0; BMI 31.1
--- NOTE | 2018-12-25 14:15 | RAD_ITS ---
STUDY: X-RAY CHEST REASON FOR EXAM: Male, 38 years old. Cough TECHNIQUE: AP COMPARISON: 10/08/2018 FINDINGS: Tracheostomy and chest port are stable. Lungs continue to be hypoinflated but interval development of bilateral central groundglass opacities, with localized opacity in the left upper lobe, new. There is no demonstrated pleural abnormality. There is mild cardiac enlargement. Normal mediastinum and rachelle. Normal visualized pulmonary arteries. Normal visualized aortic arch and descending thoracic aorta. No acute bony process. There is no demonstrated abnormality of the visualized soft tissue structures of the upper abdomen. RAD/Chest 1 View (Portable) IMPRESSION: Unfavorable change. Bilateral pulmonary infiltrates particularly in left upper lobe suggesting pneumonia or pulmonary edema. Electronically Signed: John Chavez MD ([place]) at 14:54 EST , Service support ,
[2018-12-25] MEDS: 0.9% Normal Saline 1,000 ML 999 ML IV (15:15)
[2018-12-25 15:18] LABS: Absolute Lymphocyte Count 1.68 X10^3/uL (0.83-4.51); Absolute Neutrophil Count 6.8 X10^3/uL (2.0-7.7); Basophil# 0.01 X10^3/uL; Basophil% 0.1 % (0-1); Eosinophil# 0.18 X10^3/uL; Eosinophils% 1.9 % (0-5); Hematocrit 39.3 % (40-54); Hemoglobin 12.5 g/dL (13.0-16.5); Lymphocyte # 1.68 X10^3/ul (4.0); Mean Corp Hgb Conc 31.8 g/dL (32-36); Mean Corpuscular Hgb 26.7 pg (27.0-32.0); Mean Platelet Vol. 10.2 fl (6.2-12.0); Monocyte# 0.61 X10^3/uL; Monocyte% 6.5 % (0-10); NRBC Flagged by Analyzer 0 % (0-5); Neutrophil # 6.82 X10^3/uL (2.7-7.7); Neutrophil % 73.3 % (47-70); Platelet Count 157 K/mm3 (150-450); RBC Distribution Width SD 45.3 fl (35.1-43.9); Red Blood Count 4.68 M/mm3 (4.6-6.2); White Blood Count 9.3 K/mm3 (4.4-11.0)
[2018-12-25 15:33] LABS: Bacteria 0 SEEN /hpf (None Seen); Mucous, Urine 0 SEEN /hpf (<or=2+); Red Blood Cells-Urine 0 SEEN /hpf (0-5); White Blood Cells 0 SEEN /hpf (0-5)
[2018-12-25 15:34] LABS: International Normalized Ratio 1.1; Prothrombin Time (Protime)PT. 13.9 SECONDS (11.7-14.9)
[2018-12-25 15:35] LABS: Color, Urine Yellow (Yellow); Glucose, Dipstick Normal (Normal); Ketone-Dipstick Negative (Negative); Leukocyte Esterase-Dipstick Negative /ul (Negative); Nitrite-Dipstick Negative (Negative); Occult Blood-Urine Negative /ul (Negative); Protein-Dipstick Negative (Negative); Specific Gravity, Urine 1.015 (1.002-1.030); Urine Bilirubin Dipstick Negative (Negative); Urine Clarity Clear (Clear); Urine Urobilinogen Normal (Normal)
[2018-12-25 15:35] LABS: Partial Thromboplast Time 35.8 Seconds (24.1-36.2)
[2018-12-25 15:39] LABS: ALB/GLOB Ratio 0.6 RATIO (0.9-2.4); AST(SGOT) 15 U/L (15-37); Alanine Aminotransfer ALT/SGPT 22 U/L (16-61); Albumin, Serum 3.2 g/dL (3.2-5.0); Alkaline Phosphatase 187 U/L (45-117); Anion Gap 5 (5-15); BUN 18 mg/dL (7-18); BUN/Creat Ratio 53.9 RATIO (10-20); Calcium,Total 8.7 mg/dL (8.5-10.1); Chloride 101 mmol/L (98-107); Creatinine, Serum 0.33 mg/dL (0.70-1.30); EST Glomerular Filtration Rate 317 mL/min (>60); Est Glom Filt Rate - Afr Amer 384 mL/min (>60); Estimated Creatinine Clearance 218.86 ml/min; Glucose 91 mg/dL (74-106); Potassium 3.9 mmol/L (3.5-5.1); Protein, Total 8.2 g/dL (6.4-8.2); Sodium Level 137 mmol/L (136-145)
[2018-12-25 15:40] LABS: Lactic Acid 1.3 mmol/L (0.4-2.0)
[2018-12-25 15:41] LABS: Amorphous Sediment 1+; Squamous Epithelial Cells - UA 0-5 SEEN /hpf (0-5)
--- NOTE | 2018-12-25 16:41 | HP.PCM_ITS ---
Problem List (1) Sepsis Status: Acute (2) Pneumonia Status: Acute History of Present Illness Date of Admission: 12/25/18 Chief Complaint: shortness of breath The patient is a 38 year old M with cerebral palsy status post tracheostomy who is on a portable vent at night. Patient was in his normal state of health and then vomited twice today and then was having increasing shortness of breath. Typically during the day, patient is on room air may be a little bit oxygen but is not on the ventilator. Patient is on the ventilator strictly at night. The family put him on the ventilator. Given that this is typical when he gets pneumonia minus him having fever which did not have fever today they are concerned. In the emergency room, patient was continued on the ventilator had a chest x-ray that showed bilateral hazy infiltrate. Patient had cultures performed and would be receiving Pipracil and/tazobactam and vancomycin. History is obtained through the emergency room physician as well as the family at bedside. Given the patient's advanced cerebral palsy and being nonverbal he is unable to provide any history whatsoever. [] Past Medical History Past Medical History (Chronic Problems): Chronic Problems (Last Reviewed 10/03/18 @ 10:46 by Valarie Kee NP-C) Chronic respiratory failure (Chronic) Edema (Chronic) Nonrheumatic mitral valve prolapse (Chronic) Cerebral palsy (Chronic) Quadriplegic Severe mental retardation Chronic constipation PEG tube Medical History: Medical History (Last Reviewed 12/25/18 @ 16:43 by Torey James DO) Chronic respiratory failure (Chronic) J96.10 Nonrheumatic mitral valve prolapse (Chronic) I34.1 Cerebral palsy (Chronic) G80.9 Quadriplegic Severe mental retardation Chronic constipation PEG tube Aspiration pneumonia J69.0 Debility R53.81 History of seizure disorder Z86.69 Obesity E66.9 Redundant colon Q43.[address] Z93.0 Allergies cisapride monohydrate [From Propulsid] Allergy (Verified 12/25/18 13:37) Rash codeine Adverse Reaction (Verified 12/25/18 13:37) hallucinations metronidazole [From Flagyl] Adverse Reaction (Verified 12/25/18 13:37) Rash morphine Adverse Reaction (Verified 12/25/18 13:37) Hallucinations dust Allergy (Uncoded 12/25/18 13:37) Other Home Medications: Ambulatory Orders Medication Instructions Recorded Simethicone 40MG/0.6ML [Mylicon] 40 mg GT TID 11/09/13 Pantoprazole Sodium [Protonix] 20 ml GT BID 08/09/14 Senna/Docusate Sodium 5 ml GT DAILY 08/03/15 Polyethylene Glycol 3350 [Miralax] 17 gm GT DAILY 08/30/15 Magnesium Hydroxide [Milk Of 35 - 50 ml GT DAILY PRN PRN 12/20/15 Magnesia] Lactulose [Chronulac] 30 ml GT BID PRN 06/01/16 Phenobarbital 60 mg GT BID 02/19/17 Cetirizine HCl [Zyrtec] 10 mg GT DAILY 02/04/18 Lactobacillus Acidophilus 1 cap GT DAILY 02/04/18 [Acidophilus] Baclofen 20 mg GT 4X/DAY 07/14/18 Gabapentin 500 mg GT 4X/DAY 07/14/18 metoclopramide 5 mg/5 mL oral 10 mg GT TID ml 09/16/18 solution Lorazepam [Ativan] 1 mg GT Q8 PRN 10/08/18 Cholecalciferol (Vitamin D3) 5 ml GT DAILY 12/25/18 [Vitamin D3] Cough Assist 1 dose .ROUTE .MEDSUPPLY 12/25/18 Ferrous Sulfate 5 ml GT DAILY 12/25/18 Furosemide 20 mg GT DAILY PRN 12/25/18 Potassium Chloride 15 meq GT DAILY PRN 12/25/18 oxygen concentrator 1 dose .ROUTE .MEDSUPPLY 12/25/18 Surgical History: Surgical History (Last Updated 12/25/18 @ 16:45 by Torey James DO) Colostomy in place Z93.3 Heel cord lengthening bilaterally History of colostomy History of gastrostomy tube placement History of open reduction and internal fixation (ORIF) procedure Z98.890 left hip History of soft tissue release Bilateral hips and knees Status post insertion of intrathecal baclofen pump Z96.89 status post removal in March 2018. Surgical History: noncontributory, - - Insertion of a baclofen pump with replacement x2 following, PEG tube, GJ tube, left lower quadrant colostomy, heel cord lengthening bilaterally, L hip ORIF, bilateral hip and knee soft tissue release. Psychiatric History: No pertinent psych hx Lives: With Family Smoking Status: Never smoker Tobacco Use: Non-smoker Alcohol: None Drugs: None - *Family History Maternal Family History: Family History (Last Reviewed 12/25/18 @ 16:45 by Torey James DO) Mother Hypertension Hepatitis C Father Hypertension Atrial fibrillation CAD (coronary artery disease) History Items: - - Mother with history of hypertension hepatitis C. Paternal Family History: Family History (Last Reviewed 12/25/18 @ 16:45 by Torey James DO) Mother Hypertension Hepatitis C Father Hypertension Atrial fibrillation CAD (coronary artery disease) History Items: - - Father with history of hypertension, coronary disease and atrial fibrillation. Review of Systems Comment: Patient unable to provide any history given his advanced through pausing being nonverbal. At baseline, the patient does know who family is, is able to laugh at TV shows. Is able to follow simple commands. Mother notes that he is developed some superficial ulcerations underneath trach. States that his abdomen is slightly more distended than typical but has been having good output from his colostomy. VTE Information - Inpt Only VTE Present on Admission: No VTE Mechan Device Prophylaxis: None VTE Pharm Prophylaxis ordered?: Yes Patient Problems: Active and Suspected Problems (Last Reviewed 10/03/18 @ 10:46 by Valarie Kee NP-C) Sepsis (Acute) Pneumonia (Acute) - Physical Exam Vitals/I&O's: Vital Signs Temp Pulse Resp BP Pulse Ox 36.1 C L 92 13 104/78 94 12/25/18 16:00 12/25/18 16:00 12/25/18 16:00 12/25/18 16:00 12/25/18 16:00 Oxygen Flow Rate (L/min) 3.5 Oxygen Delivery Method Mechanical Ventilator Weight: 71.668 kg Body Mass Index (BMI) 30.8 General: - - Nonverbal. Does not follow any commands. Afebrile. Is anxious at one point and did require suctioning was in the room and after suctioning him twice he seemed to be more relaxed. HEENT: Atraumatic, Normocephalic, - - Tongue protruding from his mouth. No scleral icterus. Oral: Moist Mucosa, No Gingival or Mucosal Lesions/ Ulcerations Neck: No Nodes, Trachea Midline Lungs: Normal air movement, - - Coarse breath sounds bilaterally Cardiovascular: Regular rate, Regular Rhythm, Normal S1, Normal S2, No murmurs Abdomen: Non Tender, Hypoactive Bowel Sounds, Distended, - - G-tube in place with no ulceration. Colostomy with some small amount of light brown stool. Extremities: No clubbing, No edema Skin: - - Stage I ulceration underneath the tracheostomy cephalad as well as caudad. Ulceration from the bumper from the tracheostomy. Musculoskeletal: Muscle Wasting, - - Not cachectic Neurological: - - No clonus. Psych/Mental Status: Agitated Laboratory Results 12/25/18 15:00: WBC 9.3, RBC 4.68, Hgb 12.5 L, Hct 39.3 L, MCV 84.0, MCH 26.7 L, MCHC 31.8 L, RDW Std Deviation 45.3 H, RDW Coeff of Emilee 15.0 H, Plt Count 157, MPV 10.2, Immature Gran % (Auto) 0.200, Neut % (Auto) 73.3 H, Lymph % (Auto) 18.0 L, [place] % (Auto) 6.5, Eos % (Auto) 1.9, Baso % (Auto) 0.1, Absolute Neuts (auto) 6.8, Absolute Lymphs (auto) 1.68, Nucleated RBC % 0 12/25/18 15:00: PT 13.9, INR 1.1, APTT 35.8 12/25/18 15:00: Sodium 137, Potassium 3.9, Chloride 101, Carbon Dioxide 31.0, Anion Gap 5, BUN 18, Creatinine 0.33 L, Estim Creat Clear Calc 218.86, Est GFR (MDRD) Af Amer 384, Est GFR (MDRD) Non-Af 317, BUN/Creatinine Ratio 53.9 H, Glucose 91, Calcium 8.7, Total Bilirubin 0.20, AST 15, ALT 22, Alkaline Phosphatase 187 H, Total Protein 8.2, Albumin 3.2, Globulin 5.0 H, Albumin/Globulin Ratio 0.6 L 12/25/18 15:00: Lactic Acid 1.3 12/25/18 15:30: Urine Color Yellow, Urine Clarity Clear, Urine pH 8.0, Ur Specific [place] 1.015, Urine Protein Negative, Urine Glucose (UA) Normal, Urine Ketones Negative, Urine Occult Blood Negative, Urine Nitrite Negative, Urine Bilirubin Negative, Urine Urobilinogen Normal, Ur Leukocyte Esterase Negative, Urine RBC 0 SEEN, Urine WBC 0 SEEN, Ur Squamous Epith Cells 0-5 SEEN, Amorphous Sediment 1+, Urine Bacteria 0 SEEN, Urine Mucus 0 SEEN Chest x-ray reviewed and showed bilateral pulmonary hazy infiltrates slight better than back in September. Current Medications Vancomycin IV Pharmacy to Dose (1 ea/ Sodium Chloride) 500 mls @ 250 mls/hr IV X1 PRN; Protocol PRN Reason: Rx to Dose Vancomycin HCl (Vancomycin) 1,000 mg in 200 mls @ 200 mls/hr IV X1 ONE Stop: 12/25/18 17:29 Assessment/Plan All Active Problems (Last Reviewed 10/03/18 @ 10:46 by Valarie Kee, SRINIVAS-C) Sepsis (Acute) Pneumonia (Acute) Viral syndrome (Acute) SIRS (systemic inflammatory response syndrome) (Acute) Acute respiratory failure with hypoxia (Resolved) C. difficile colitis (Resolved) GJ malfunction (Resolved) Preop cardiovascular exam (Resolved) 1. Pneumonia possible gram-negative * Likely aspiration given the emesis that he had today but patient is certainly within the window of hospital-acquired infection the patient will be treated with piperacillin/tazobactam for possible gram-negative pneumonia * Pulmonary toilet with a chest physiotherapy and bronchodilators * Head of bed 30 degrees * Check urinary antigens Streptococcus and Legionella. Check sputum culture. 2. Sepsis * Tachycardic and tachypneic * Secondary to above * Blood cultures performed in the ER. 3. Acute respiratory insufficiency on chronic respiratory failure * Patient was put on his home ventilator and is doing well with that with about 3 L of oxygen * Discussed with Dr. Monsalve, pulmonology, recommend just continue with the mechanical ventilator for tonight and then will be reevaluated in the morning to see if he can come off that just to use it as he typically does which is at night. * Secondary to pneumonia * Wean oxygen as tolerated 4. Emesis * Mother states that he rarely does this * She also states that his abdomen is slightly more distended than it is typically * I will order a portable abdominal x-ray to evaluate for ileus or small bowel obstruction * If neither that is present then we could resume his tube feeds. The patient's tube feeds are Jevity 70 cc/h during the day for roughly 16 hours and 50 cc at night for about 8 hours. 5. Cerebral palsy, seizure disorder, muscle spasms * Chronic problems * Stable at this time 6. VTE prophylaxis: Moderate risk. Enoxaparin 7. Advanced care planning: Discussed with the family with his mother and father. They initially were angry at me asking stating that they were initially not willing to discuss it. I told the masses of many patients that I admit to the hospital and trying to leave them in any particular direction but to un derstand what his CODE STATUS is. They stated that he is full CODE STATUS. They stated that they were reluctant because at some point during his previous hospitalizations at this facility a physician, who apparently does not work here anymore, was asking several times per shift what his CODE STATUS was ambulated to get up to administration at that time. I did tell them that this is something that is commonly asked at this institution but also at other institutions. Code Visit Inpatient E&M: 98315 Init Hosp L3
--- NOTE | 2018-12-25 17:20 | ED.VIS.GEN ---
History of Present Illness Chief Complaint: Shortness of Breath Informant: Family Limited by: - - Patient nonverbal Onset: Today Context: Gradual Onset Narrative: Patient is a 38-year-old male with history of cerebral palsy with subsequent tracheostomy as well as history of C. difficile and frequent aspiration pneumonia presenting with hypoxia and vomiting. Patient had a couple episodes of vomiting at home today. Throughout the course of the day he also had an increase in his O2 demands. Patient normally wears humidified oxygen or uses room air during the day and uses and at night. He is been on his vent all day today. They had to turn his oxygen up to 3.5 L, he is normally at 2.5 L. Patient has had normal ostomy output. He was also significantly tachycardic at home with a heart rate up to 125. Family decided to bring him to the emergency room. Past Medical History - Allergies and Home Meds Allergies/Adverse Reactions: Allergies cisapride monohydrate [From Propulsid] Allergy (Verified 12/25/18 13:37) Rash codeine Adverse Reaction (Verified 12/25/18 13:37) hallucinations metronidazole [From Flagyl] Adverse Reaction (Verified 12/25/18 13:37) Rash morphine Adverse Reaction (Verified 12/25/18 13:37) Hallucinations dust Allergy (Uncoded 12/25/18 13:37) Other Past Medical History: - - Cerebral palsy, history of C. difficile, seizure disorder Surgical History: - - Insertion of a baclofen pump with replacement x2 following, PEG tube, GJ tube, left lower quadrant colostomy, heel cord lengthening bilaterally, L hip ORIF, bilateral hip and knee soft tissue release. Lives: With Family Smoking Status: Never smoker Alcohol: None Drugs: None - Family History Maternal Family History: Family History (Last Reviewed 12/25/18 @ 16:45 by Torey James DO) Mother Hypertension Hepatitis C Father Hypertension Atrial fibrillation CAD (coronary artery disease) Family History: Reports: - - Mother with history of hypertension hepatitis C. Paternal Family History: Family History (Last Reviewed 12/25/18 @ 16:45 by Torey James DO) Mother Hypertension Hepatitis C Father Hypertension Atrial fibrillation CAD (coronary artery disease) Family History: Reports: - - Father with history of hypertension, coronary disease and atrial fibrillation. Review of Systems ROS: Unable to Obtain - Review of systems is limited secondary to patient's nonverbal status Cardiovascular: Reports: Heart racing Respiratory: Reports: - - Increased O2 demands Gastrointestinal: Reports: Vomiting - x2, - - Colostomy output normal Physical Exam Vital Signs/Narrative: Vital Signs Temp Pulse Resp BP Pulse Ox 12/25/18 16:00 96.9 F L 92 13 104/78 94 12/25/18 15:00 97 F L 99 12 104/82 H 93 12/25/18 14:56 100 11 L 104/78 94 12/25/18 14:15 96.9 F L 12/25/18 13:41 97.5 F L 116 H 26 H 118/90 H 93 12/25/18 13:33 97.5 F L 116 H 26 H 118/90 H 93 Inital Vital Signs reviewed: Yes General: Well nourished, Obese, Contractures Head: Normocephalic, Atraumatic Eyes: Perrl, EOMI ENT: No rhinorrhea, Dry mucous membranes Neck: Supple, Nontender, - - Tracheostomy in place Cardiovascular: Regular rhythm, Tachycardia Respiratory: Diminished, - - Course Breath sounds throughout. Negative for: Rhonchi, Wheezing Abdomen: Soft, Nontender, Nondistended, Normal bowel sounds, - - Brown thin stool in ostomy, PEG tube in place. Negative for: Guarding Extremities: Nontender, No edema Skin: Normal color, No rash Neurological: Inattentive Diagnostic/Tx/Re-eval Chest X-Ray - ED: 2 View, Read by ED Physician, Read by Radiologist, Right Infiltrate, Left Infiltrate Clinical Impression(s) from Imaging Studies Chest X-Ray 12/25/18 14:15 IMPRESSION: Unfavorable change. Bilateral pulmonary infiltrates particularly in left upper lobe suggesting pneumonia or pulmonary edema. Electronically Signed: John Chavez MD ([place]) at 14:54 EST , Service support , Laboratory Data 12/25/18 12/25/18 12/25/18 15:00 15:00 15:00 WBC 9.3 RBC 4.68 Hgb 12.5 L Hct 39.3 L MCV 84.0 MCH 26.7 L MCHC 31.8 L RDW Std Deviation 45.3 H RDW Coeff of Emilee 15.0 H Plt Count 157 MPV 10.2 Immature Gran % (Auto) 0.200 Neut % (Auto) 73.3 H Lymph % (Auto) 18.0 L [place] % (Auto) 6.5 Eos % (Auto) 1.9 Baso % (Auto) 0.1 Absolute Neuts (auto) 6.8 Absolute Lymphs (auto) 1.68 Nucleated RBC % 0 PT 13.9 INR 1.1 APTT 35.8 Sodium 137 Potassium 3.9 Chloride 101 Carbon Dioxide 31.0 Anion Gap 5 BUN 18 Creatinine 0.33 L Estim Creat Clear Calc 218.86 Est GFR (MDRD) Af Amer 384 Est GFR (MDRD) Non-Af 317 BUN/Creatinine Ratio 53.9 H Glucose 91 Lactic Acid Calcium 8.7 Total Bilirubin 0.20 AST 15 ALT 22 Alkaline Phosphatase 187 H Total Protein 8.2 Albumin 3.2 Globulin 5.0 H Albumin/Globulin Ratio 0.6 L Urine Color Urine Clarity Urine pH Ur Specific [place] Urine Protein Urine Glucose (UA) Urine Ketones Urine Occult Blood Urine Nitrite Urine Bilirubin Urine Urobilinogen Ur Leukocyte Esterase Urine RBC Urine WBC Ur Squamous Epith Cells Amorphous Sediment Urine Bacteria Urine Mucus 12/25/18 12/25/18 15:00 15:30 WBC RBC Hgb Hct MCV MCH MCHC RDW Std Deviation RDW Coeff of Emliee Plt Count MPV Immature Gran % (Auto) Neut % (Auto) Lymph % (Auto) [place] % (Auto) Eos % (Auto) Baso % (Auto) Absolute Neuts (auto) Absolute Lymphs (auto) Nucleated RBC % PT INR APTT Sodium Potassium Chloride Carbon Dioxide Anion Gap BUN Creatinine Estim Creat Clear Calc Est GFR (MDRD) Af Amer Est GFR (MDRD) Non-Af BUN/Creatinine Ratio Glucose Lactic Acid 1.3 Calcium Total Bilirubin AST ALT Alkaline Phosphatase Total Protein Albumin Globulin Albumin/Globulin Ratio Urine Color Yellow Urine Clarity Clear Urine pH 8.0 Ur Specific [place] 1.015 Urine Protein Negative Urine Glucose (UA) Normal Urine Ketones Negative Urine Occult Blood Negative Urine Nitrite Negative Urine Bilirubin Negative Urine Urobilinogen Normal Ur Leukocyte Esterase Negative Urine RBC 0 SEEN Urine WBC 0 SEEN Ur Squamous Epith Cells 0-5 SEEN Amorphous Sediment 1+ Urine Bacteria 0 SEEN Urine Mucus 0 SEEN - Medical Decision Making Patient is evaluated for increased O2 demand and vomiting. X-ray shows concerning findings for multilobar pneumonia. Patient is initially tachycardic and tachypneic. He does meet criteria for sepsis but not severe sepsis or septic shock. Patient started on broad-spectrum antibiotics to cover for healthcare associated pneumonia as well as aspiration pneumonia. When he does have increased O2 demands he is at his baseline vent settings. I do not think he requires a sleep at this time. Family is agreeable with admission. No other source of infection is found. Respiratory panel is sent off. Patient is hemodynamically stable in the emergency room. ED Disposition - Plan for ED Patient: Disposition: Acute Care Hospital [facility] Diagnosis: Pneumonia, Sepsis
--- NOTE | 2018-12-25 17:36 | RAD_ITS ---
STUDY: X-RAY - ABDOMEN/PELVIS REASON FOR EXAM: Male, 38 years old. Emesis TECHNIQUE: 3 frontal views of the abdomen were performed COMPARISON: 08 October 2018 FINDINGS: Inspiratory volumes are low. Lungs are clear, with possible right lower lobe atelectasis. Percutaneous tracheostomy is in place and infusion catheter entering the internal jugular intermediate with its tip in the right atrium. There is no intestinal obstruction. Feeding gastrostomy is in place. There is moderate levoscoliosis of the lumbar spine. Appearance is similar to prior. RAD/Abd Decub and/or Erect(Portabl IMPRESSION: No intestinal obstruction. Unremarkable stable-appearing abdominal radiography. Electronically Signed: Tenisha Garland, at 19:12 EST Tel , Service support ,
--- NOTE | 2018-12-25 17:46 | CPS ---
PT TO FLOOR FROM ER AND IS ON HOME VENT. PT BERNY HOME VENT WELL. PER PT'S MOM THE VENT SETTINGS ARE:SIMV10 VT 350 PEEP 8 PS 10 3 LPM O2.. PT HAS A COUGH ASSIST AT HOME AND PARENTS INSTRUCTED TO BRING IN.
[2018-12-25] MEDS: 0.9% Normal Saline 1,000 ML 100 ML IV (19:03)
[2018-12-25] MEDS: Gabapentin 400 MG Capsule GT (19:59)
[2018-12-25] MEDS: Baclofen 10 MG Tablet 20 MG GT (19:59)
[2018-12-25] MEDS: Vancomycin IV 1,000 MG/200 ML BAG 200 MG IV (20:06)
[2018-12-25] MEDS: Ipratropium/Albuterol Sulfate 3 ML AMPUL.NEB INHALATION (20:29)
--- NOTE | 2018-12-25 20:34 | PN_ITS ---
Progress Note Patient with a history of cerebral palsy and with trach and nightly vent has been admitted with sepsis secondary to pneumonia. Patient was admitted to the progressive care unit.-Nursing staff reports that per family whenever patient is admitted to [facility] he is admitted to the ICU. Nursing staff is uncomfortable taking care of patient at the PCU and is requesting the patient be transferred to intensive care unit. We will go ahead and transfer patient to intensive care unit. STROKE Vital Signs/Narrative: Vital Signs Temp Pulse Resp BP Pulse Ox 12/25/18 18:56 92 12/25/18 18:19 98.5 F 90 18 116/71 98 12/25/18 18:15 93
[2018-12-25] MEDS: CLARIFY ORDER NOTE (22:23)
[2018-12-25] MEDS: LORazepam 1 MG Tablet GT (22:41)
[2018-12-25] MEDS: Lansoprazole 15 MG Capsule.DR GT (22:41)
[2018-12-25] MEDS: Phenobarbital 20 MG/5 ML UDC 60 MG GT (22:42)
[2018-12-25] MEDS: Simethicone 40MG/0.6ML Bottle 40 MG GT (22:42)
[2018-12-25] MEDS: Jevity 1.5 1,000 ML 50 ML GT (22:42)
--- NOTE | 2018-12-25 22:45 | NURSING ---
per patient's mother request, started tube feed at 20 ml/hr.
[2018-12-25] MEDS: Metoclopramide 10 MG/10 ML UDC GT (23:04)
[2018-12-26] VITALS (25 sets, daily range): BP systolic 93–152; BP diastolic 55–88; PULSE 73–110; RESP 12–20; TEMP 36.3–36.7; O2SAT 95–100
[2018-12-26] MEDS: Baclofen 10 MG Tablet 20 MG GT ×4 (01:14→18:10)
[2018-12-26] MEDS: Gabapentin 400 MG Capsule GT ×4 (01:14→18:12)
[2018-12-26] MEDS: Gabapentin 100 MG Capsule GT ×4 (01:15→18:15)
[2018-12-26 04:38] LABS: Absolute Lymphocyte Count 1.52 X10^3/uL (0.83-4.51); Absolute Neutrophil Count 3.3 X10^3/uL (2.0-7.7); Basophil# 0.01 X10^3/uL; Basophil% 0.2 % (0-1); Eosinophil# 0.16 X10^3/uL; Eosinophils% 2.9 % (0-5); Hematocrit 33.6 % (40-54); Hemoglobin 10.7 g/dL (13.0-16.5); Lymphocyte # 1.52 X10^3/ul (4.0); Lymphocyte % 27.4 % (19-41); Mean Corp Hgb Conc 31.8 g/dL (32-36); Mean Corpuscular Hgb 26.9 pg (27.0-32.0); Mean Corpuscular Volume 84.4 fL (80-94); Mean Platelet Vol. 9.7 fl (6.2-12.0); Monocyte# 0.52 X10^3/uL; Monocyte% 9.4 % (0-10); NRBC Flagged by Analyzer 0 % (0-5); Neutrophil # 3.31 X10^3/uL (2.7-7.7); Neutrophil % 59.7 % (47-70); Platelet Count 116 K/mm3 (150-450); RBC Distribution Width CV 15.1 % (11.6-14.6); Red Blood Count 3.98 M/mm3 (4.6-6.2); White Blood Count 5.5 K/mm3 (4.4-11.0)
[2018-12-26 04:51] LABS: Anion Gap 8 (5-15); BUN 13 mg/dL (7-18); BUN/Creat Ratio 37.9 RATIO (10-20); Calcium,Total 7.7 mg/dL (8.5-10.1); Chloride 107 mmol/L (98-107); Creatinine, Serum 0.34 mg/dL (0.70-1.30); EST Glomerular Filtration Rate 307 mL/min (>60); Est Glom Filt Rate - Afr Amer 372 mL/min (>60); Estimated Creatinine Clearance 212.42 ml/min; Glucose 106 mg/dL (74-106); Potassium 3.1 mmol/L (3.5-5.1); Sodium Level 143 mmol/L (136-145)
[2018-12-26] MEDS: Simethicone 40MG/0.6ML Bottle 40 MG GT ×3 (05:54→21:36)
--- NOTE | 2018-12-26 06:30 | PCM.CON.CC ---
Reason for Consult Date of Consultation: 12/26/18 Reason for Consultation: Pneumonia History of Present Illness: The patient is a 38-year-old male, with a history as outlined below, who presented to the emergency department on December 25 after having experienced 2 episodes of emesis in his home environment. History pertinent to the patient's hospitalization was obtained from the patient's mother, who is present at the bedside, given the patient's baseline neurological deficits. She reports that on 2 occasions yesterday he had 2 episodes of bilious emesis. She states that he then went on to become tachycardic and had low oxygen saturations in the mid 90s. The patient has a history of cerebral palsy, spastic quadriplegia and chronic respiratory failure requiring home ventilator utilization. The patient is followed by Dr. Monsalve in the outpatient pulmonary clinic. In fact, the patient was scheduled to be seen by Dr. Monsalve today. He is on SIMV mode on his noninvasive ventilator at baseline throughout the night. During the day, his mother reports that she has been able to wean his supplemental oxygen at times to room air. If he does require supplemental oxygen, it is typically at 2-3 L/min. On presentation to the emergency department, the patient was noted to be afebrile and hemodynamically stable. Initial laboratory evaluation revealed no evidence of a leukocytosis. Coagulation profile was within normal limits. Chemistry profile was unrevealing. AST and ALT were normal. Lactic acid was within normal limits. Urinalysis was unremarkable. Initial plain film chest x-ray was initially read by the radiologist to demonstrate bilateral pulmonary infiltrates. However, on my review of the chest x-ray, it is a poor quality and was taken during expiration, making it difficult to tell if there is truly an underlying pulmonary infectious process. The patient initially received supplemental IV fluids and was started on broad-spectrum antimicrobials. It appears that he was initially admitted to the progressive care unit and then transferred to the ICU at the discretion of the overnight hospitalist. The patient has remained hemodynamically stable with baseline oxygen requirements overnight. Nursing staff did report that they have been suctioning thick yellow secretions. His mother does report that this is typically baseline for him. Past Medical History Past Medical History (Chronic Problems): Chronic Problems (Last Reviewed 12/25/18 @ 16:43 by Torey James DO) Edema (Chronic) Chronic respiratory failure (Chronic) Nonrheumatic mitral valve prolapse (Chronic) Cerebral palsy (Chronic) Quadriplegic Severe mental retardation Chronic constipation PEG tube Medical History: Medical History (Last Reviewed 12/25/18 @ 16:43 by Torey James DO) Chronic respiratory failure (Chronic) J96.10 Nonrheumatic mitral valve prolapse (Chronic) I34.1 Cerebral palsy (Chronic) G80.9 Quadriplegic Severe mental retardation Chronic constipation PEG tube Aspiration pneumonia J69.0 Debility R53.81 History of seizure disorder Z86.69 Obesity E66.9 Redundant colon Q43.[address] Z93.0 Allergies cisapride monohydrate [From Propulsid] Allergy (Verified 12/25/18 13:37) Rash codeine Adverse Reaction (Verified 12/25/18 13:37) hallucinations metronidazole [From Flagyl] Adverse Reaction (Verified 12/25/18 13:37) Rash morphine Adverse Reaction (Verified 12/25/18 13:37) Hallucinations dust Allergy (Uncoded 12/25/18 13:37) Other Home Medications: Ambulatory Orders Medication Instructions Recorded Simethicone 40MG/0.6ML [Mylicon] 40 mg GT TID 11/09/13 Pantoprazole Sodium [Protonix] 20 ml GT BID 08/09/14 Senna/Docusate Sodium 5 ml GT DAILY 08/03/15 Polyethylene Glycol 3350 [Miralax] 17 gm GT DAILY 08/30/15 Magnesium Hydroxide [Milk Of 35 - 50 ml GT DAILY PRN PRN 12/20/15 Magnesia] Lactulose [Chronulac] 30 ml GT BID PRN 06/01/16 Phenobarbital 60 mg GT BID 02/19/17 Cetirizine HCl [Zyrtec] 10 mg GT DAILY 02/04/18 Lactobacillus Acidophilus 1 cap GT DAILY 02/04/18 [Acidophilus] Baclofen 20 mg GT 4X/DAY 07/14/18 Gabapentin 500 mg GT 4X/DAY 07/14/18 metoclopramide 5 mg/5 mL oral 10 mg GT TID ml 09/16/18 solution Lorazepam [Ativan] 1 mg GT Q8 PRN 10/08/18 Cholecalciferol (Vitamin D3) 5 ml GT DAILY 12/25/18 [Vitamin D3] Cough Assist 1 dose .ROUTE .MEDSUPPLY 12/25/18 Ferrous Sulfate 5 ml GT DAILY 12/25/18 Furosemide 20 mg GT DAILY PRN 12/25/18 Potassium Chloride 15 meq GT DAILY PRN 12/25/18 oxygen concentrator 1 dose .ROUTE .MEDSUPPLY 12/25/18 Surgical History: Surgical History (Last Updated 12/25/18 @ 16:45 by Torey James DO) Colostomy in place Z93.3 Heel cord lengthening bilaterally History of colostomy History of gastrostomy tube placement History of open reduction and internal fixation (ORIF) procedure Z98.890 left hip History of soft tissue release Bilateral hips and knees Status post insertion of intrathecal baclofen pump Z96.89 status post removal in March 2018. Surgical History: - - Insertion of a baclofen pump with replacement x2 following, PEG tube, GJ tube, left lower quadrant colostomy, heel cord lengthening bilaterally, L hip ORIF, bilateral hip and knee soft tissue release. Psychiatric History: No pertinent psych hx Lives: With Family Smoking Status: Never smoker Tobacco Use: Non-smoker Alcohol: None Drugs: None - *Family History Maternal Family History: Family History (Last Reviewed 12/25/18 @ 16:45 by Torey James DO) Mother Hypertension Hepatitis C Father Hypertension Atrial fibrillation CAD (coronary artery disease) History Items: - - Mother with history of hypertension hepatitis C. Paternal Family History: Family History (Last Reviewed 12/25/18 @ 16:45 by Torey James DO) Mother Hypertension Hepatitis C Father Hypertension Atrial fibrillation CAD (coronary artery disease) History Items: - - Father with history of hypertension, coronary disease and atrial fibrillation. Review of Systems Unable to obtain accurate/complete ROS d/t: Due to baseline cerebral palsy. Patient Problems: Active and Suspected Problems (Last Reviewed 12/25/18 @ 16:43 by Torey James DO) Sepsis (Acute) Pneumonia (Acute) Objective: The patient's most recent lab work, culture data and imaging studies have all been personally reviewed. - Physical Exam Vitals/I&O's: Vital Signs Temp Pulse Resp BP Pulse Ox 97.5 F L 86 13 117/61 99 12/26/18 04:00 12/26/18 06:00 12/26/18 06:00 12/26/18 06:00 12/26/18 06:00 Oxygen Flow Rate (L/min) 3 Oxygen Delivery Method Mechanical Ventilator Weight: 159 lb Body Mass Index (BMI) 31.0 Intake and Output for Last 24 Hours 12/25/18 12/25/18 12/26/18 00:59 23:59 23:59 Intake Total 1379 / 1379 Balance 1379 / 1379 General: No apparent distress, - - Resting comfortably in bed. No respiratory distress. Tolerating home ventilator settings. Mother is present at the bedside. HEENT: Atraumatic, Normocephalic Oral: Moist Mucosa Neck: Supple, No Nodes, Trachea Midline, - - Tracheostomy site is C/D/I Lungs: No rhonchi, No wheeze, No rales, Diminished Cardiovascular: Regular rate, Regular Rhythm, Normal S1, Normal S2 Abdomen: Bowel Sounds Present, Soft, - - +PEG Extremities: No clubbing, No cyanosis, Edema, - - Contracted extremities Skin: No breakdown Musculoskeletal: No Muscle Wasting, - - Exaggerated kyphoscoliosis Lymphatic: No Cervical, Supraclavicular, or Inguinal Adenopathy Neurological: - - Spastic quadriplegia. Non-conversational at baseline. Psych/Mental Status: Flat Affect Microbiology Past 72 Hours Labs (Last 48 Hours) 12/25/18 12/25/18 12/25/18 15:00 15:00 15:00 WBC 9.3 RBC 4.68 Hgb 12.5 L Hct 39.3 L MCV 84.0 MCH 26.7 L MCHC 31.8 L RDW Std Deviation 45.3 H RDW Coeff of Emilee 15.0 H Plt Count 157 MPV 10.2 Immature Gran % (Auto) 0.200 Neut % (Auto) 73.3 H Lymph % (Auto) 18.0 L [place] % (Auto) 6.5 Eos % (Auto) 1.9 Baso % (Auto) 0.1 Absolute Neuts (auto) 6.8 Absolute Lymphs (auto) 1.68 Nucleated RBC % 0 PT 13.9 INR 1.1 APTT 35.8 Sodium 137 Potassium 3.9 Chloride 101 Carbon Dioxide 31.0 Anion Gap 5 BUN 18 Creatinine 0.33 L Estim Creat Clear Calc 218.86 Est GFR (MDRD) Af Amer 384 Est GFR (MDRD) Non-Af 317 BUN/Creatinine Ratio 53.9 H Glucose 91 Lactic Acid Calcium 8.7 Total Bilirubin 0.20 AST 15 ALT 22 Alkaline Phosphatase 187 H Total Protein 8.2 Albumin 3.2 Globulin 5.0 H Albumin/Globulin Ratio 0.6 L Urine Color Urine Clarity Urine pH Ur Specific [place] Urine Protein Urine Glucose (UA) Urine Ketones Urine Occult Blood Urine Nitrite Urine Bilirubin Urine Urobilinogen Ur Leukocyte Esterase Urine RBC Urine WBC Ur Squamous Epith Cells Amorphous Sediment Urine Bacteria Urine Mucus 12/25/18 12/25/18 12/26/18 15:00 15:30 04:30 WBC 5.5 RBC 3.98 L Hgb 10.7 L Hct 33.6 L MCV 84.4 MCH 26.9 L MCHC 31.8 L RDW Std Deviation 46.0 H RDW Coeff of [place] 15.1 H Plt Count 116 L MPV 9.7 Immature Gran % (Auto) 0.400 Neut % (Auto) 59.7 Lymph % (Auto) 27.4 [place] % (Auto) 9.4 Eos % (Auto) 2.9 Baso % (Auto) 0.2 Absolute Neuts (auto) 3.3 Absolute Lymphs (auto) 1.52 Nucleated RBC % 0 PT INR APTT Sodium Potassium Chloride Carbon Dioxide Anion Gap BUN Creatinine Estim Creat Clear Calc Est GFR (MDRD) Af Amer Est GFR (MDRD) Non-Af BUN/Creatinine Ratio Glucose Lactic Acid 1.3 Calcium Total Bilirubin AST ALT Alkaline Phosphatase Total Protein Albumin Globulin Albumin/Globulin Ratio Urine Color Yellow Urine Clarity Clear Urine pH 8.0 Ur Specific [place] 1.015 Urine Protein Negative Urine Glucose (UA) Normal Urine Ketones Negative Urine Occult Blood Negative Urine Nitrite Negative Urine Bilirubin Negative Urine Urobilinogen Normal Ur Leukocyte Esterase Negative Urine RBC 0 SEEN Urine WBC 0 SEEN Ur Squamous Epith Cells 0-5 SEEN Amorphous Sediment 1+ Urine Bacteria 0 SEEN Urine Mucus 0 SEEN 12/26/18 04:30 WBC RBC Hgb Hct MCV MCH MCHC RDW Std Deviation RDW Coeff of [place] Plt Count MPV Immature Gran % (Auto) Neut % (Auto) Lymph % (Auto) [place] % (Auto) Eos % (Auto) Baso % (Auto) Absolute Neuts (auto) Absolute Lymphs (auto) Nucleated RBC % PT INR APTT Sodium 143 Potassium 3.1 L Chloride 107 Carbon Dioxide 28.0 Anion Gap 8 BUN 13 Creatinine 0.34 L Estim Creat Clear Calc 212.42 Est GFR (MDRD) Af Amer 372 Est GFR (MDRD) Non-Af 307 BUN/Creatinine Ratio 37.9 H Glucose 106 Lactic Acid Calcium 7.7 L Total Bilirubin AST ALT Alkaline Phosphatase Total Protein Albumin Globulin Albumin/Globulin Ratio Urine Color Urine Clarity Urine pH Ur Specific [place] Urine Protein Urine Glucose (UA) Urine Ketones Urine Occult Blood Urine Nitrite Urine Bilirubin Urine Urobilinogen Ur Leukocyte Esterase Urine RBC Urine WBC Ur Squamous Epith Cells Amorphous Sediment Urine Bacteria Urine Mucus Microbiology 12/25/18 16:38 Mucosa - Nose Respiratory Panel (PCR) - Final 12/25/18 15:30 Urine, Random Streptococcus pneumoniae Antigen (M - Final 12/25/18 15:30 Urine, Random Legionella Antigen - Final Clinical Impression(s) from Imaging Studies Chest X-Ray 12/25/18 14:15 IMPRESSION: Unfavorable change. Bilateral pulmonary infiltrates particularly in left upper lobe suggesting pneumonia or pulmonary edema. Electronically Signed: John Chavez MD ([place]) at 14:54 EST , Service support , Abdomen X-Ray 12/25/18 17:36 IMPRESSION: No intestinal obstruction. Unremarkable stable-appearing abdominal radiography. Electronically Signed: Tenisha Garland, at 19:12 EST Tel , Service support , Current Medications Acetaminophen (Tylenol Liquid) 650 mg GT Q6H PRN PRN PRN Reason: Non-cardiac pain (4-10/10) Albuterol Sulfate (Ventolin Aerosols) 2.5 mg INHALATION Q2H PRN PRN Reason: SHORTNESS OF BREATH Albuterol/Ipratropium (Duoneb) 3 ml INHALATION Q4HWA.RT JOYCE Last Admin: 12/25/18 20:29 Dose: 3 ml Documented by: Baclofen (Lioresal) 20 mg GT 0000,0600,1200,1800 [facility] Last Admin: 12/26/18 05:54 Dose: 20 mg Documented by: Dextrose (D50w Syringe) 0 gm IV X1 PRN; Protocol PRN Reason: Hypoglycemia Enoxaparin Sodium (Lovenox) 40 mg SC DAILY@1000 JOYCE Ferrous Sulfate (Ferrous Sulfate Syrup) 300 mg GT DAILY JOYCE Furosemide (Lasix) 20 mg PO DAILY PRN PRN Reason: EDEMA Gabapentin (Neurontin) 400 mg GT 0000,0600,1200,1800 [facility] Last Admin: 12/26/18 05:55 Dose: 400 mg Documented by: Gabapentin (Neurontin) 100 mg GT 0000,0600,1200,1800 [facility] Last Admin: 12/26/18 05:55 Dose: 100 mg Documented by: Glucagon () 1 mg IM .X1 PRN PRN Reason: Hypoglycemia Heparin Sodium (Beef Lung) () 50 units IV UD PRN PRN Reason: Port-a-Cath (VAD)Heparin Flush Piperacillin Sod/Tazobactam (Sod 3.375 gm/ Sodium Chloride) 50 mls @ 12.5 mls/hr IV Q8 [facility] Last Admin: 12/26/18 05:57 Dose: 12.5 mls/hr Documented by: Enteral Nutritional Formula (Jevity 1.5) 1,000 mls @ 50 mls/hr GT .Q20H [facility] Last Admin: 12/25/18 22:42 Dose: 50 mls/hr Documented by: Lactobacillus Acidophilus (Acidophilus) 1 tablet GT DAILY [facility] Lactulose (Chronulac, Cephulac) 20 gm GT BID PRN PRN Reason: CONSTIPATION Lansoprazole (Lansoprazole) 15 mg GT BID [facility] Last Admin: 12/25/18 22:41 Dose: 15 mg Documented by: Loratadine (Claritin) 10 mg GT DAILY [facility] Lorazepam (Ativan) 1 mg GT Q8H PRN PRN Reason: AGITATION Last Admin: 12/25/18 22:41 Dose: 1 mg Documented by: Magnesium Hydroxide (Milk Of Magnesia) 50 ml GT DAILY PRN PRN PRN Reason: Constipation Metoclopramide HCl (Reglan) 10 mg GT TID@0900,1600,2200 [facility] Non-Formulary Medication (Cholecalciferol (Vitamin D3) [Vitamin D3]) 5 ml MISCELL. DAILY [facility] Ondansetron HCl (Zofran) 4 mg IV Q6H PRN PRN PRN Reason: nausea vomiting Phenobarbital (Phenobarbital) 60 mg GT BID [facility] Last Admin: 12/25/18 22:42 Dose: 60 mg Documented by: Polyethylene Glycol (Miralax) 17 gm GT DAILY [facility] Potassium Chloride (Potassium Chl Soln) 15 meq GT DAILY PRN PRN Reason: WITH LASIX Senna/Docusate Sodium (Senokot-S, Kim-Colace) 1 tablet GT DAILY JOYCE Simethicone (Mylicon) 40 mg GT TID [facility] Last Admin: 12/26/18 05:54 Dose: 40 mg Documented by: Sodium Chloride () 10 - 40 ml IV UD PRN PRN Reason: Port-a-Cath (VAD) Flush Sodium Chloride (0.9% Nacl (Sterile) Posiflush) 10 - 40 ml IV UD PRN PRN Reason: Port access or dressing change Assessment/Plan Active and Suspected Problems (Last Reviewed 12/25/18 @ 16:43 by Torey James DO) Sepsis (Acute) Pneumonia (Acute) RECOMMENDATIONS: 1. Continue Zosyn while awaiting sputum Gram stain. Vancomycin can be discontinued. 2. Continue baseline supplemental oxygen and noninvasive ventilator support on a nightly basis. 3. Continue tube feeds. 4. As the patient has no ICU needs, he can be made PCU status from my perspective. IMPRESSIONS: 1. Chronic respiratory failure The patient has baseline cerebral palsy and spastic quadriplegia with a trach/PEG in place. He utilizes a noninvasive ventilator on an outpatient basis. At the current time, the patient's respiratory state appears to be baseline. There is some concern for potential aspiration pneumonia, given that the patient experienced episodes of emesis yesterday. Needless to say, his plain film chest x-ray was suboptimal given its timing with inspiration. However, I would recommend that Zosyn be continued empirically while awaiting sputum Gram stain. Vancomycin has been discontinued. If Gram stain does not show any evidence of organisms, all antibiotics will be discontinued. 2. Cerebral palsy/seizure disorder/spastic quadriplegia Complicates care, management, recovery and prognosis. Continue home medications as indicated. This note was generated with [employer] dictation software. It may contain incorrect words, spelling, and punctuation that were not noted in checking the note before signing. Code Visit Inpatient E&M: 37270 Init Hosp L3
[2018-12-26] MEDS: Ipratropium/Albuterol Sulfate 3 ML AMPUL.NEB INHALATION ×4 (06:37→19:06)
--- NOTE | 2018-12-26 07:13 | PN_ITS ---
Patient Problems: Active and Suspected Problems (Last Reviewed 12/25/18 @ 16:43 by Torey James DO) Sepsis (Acute) Pneumonia (Acute) Subjective: The pt is a 38 YO male with an PMH of CP (on a ventilator at night only), tracheostomy, severe mental retardation, nonrheumatic mitral valve prolapse, chronic respiratory failure with hypoxemia, quadriplegia, chronic constipation and PEG tube who was admitted to [facility] on 12/25/18 with sepsis and acute respiratory insufficiency secondary to aspiration pneumonia after vomiting twice at home. He was started on Zosyn and Vancomycin and admitted to the ICU on his ventilator with 3.5 LPM O2. Pneumococcal and Legionella antigens in the urine were negative. Respiratory panel was negative. Chest x-ray showed bilateral pulmonary infiltrates per radiology but, it was done in expiration and it does not appear to be significantly different than previous CXR's. All events of the past 24 hours of been reviewed. He has been afebrile since admission to the hospital and the current temp is 97.5 ?F. Current blood pressure ranges from 93/60 3-1 17/61 over the past 3 hours. He is 98 to 99% saturated on a 3 L nasal cannula. All lab was personally reviewed. White blood cell count is 5.5 with a normal differential. Hemoglobin is 10.7 and platelets are 116,000, down from 157,000 at admission. Potassium is low today 3.1. BUN is 13 and creatinine is 0.34. Calcium is 7.7 and when corrected for hypoalbuminemia is low normal. UA was negative at admission. Blood cultures are pending. Sputum culture is pending. Pt is non-verbal. Talked with his mom Miky. she thinks he is close to baseline......concerned about HR being up. Adrian is on Oxygen during the day at times but, not the ventilator. Last BM yesterday. He used to have a Baclofen pump but no longer has one because they kept getting infected and the wounds would not heal. He takes Gabapentin and Baclofen via the PEG for spasms. - Physical Exam Vitals/I&O's: Vital Signs Temp Pulse Resp BP Pulse Ox 97.5 F L 99 12 97/55 L 98 12/26/18 04:00 12/26/18 07:00 12/26/18 07:00 12/26/18 07:00 12/26/18 07:00 Oxygen Flow Rate (L/min) 3 Oxygen Delivery Method Mechanical Ventilator Weight: 159 lb Body Mass Index (BMI) 31.0 Intake and Output for Last 24 Hours 12/25/18 12/25/18 12/26/18 00:59 23:59 23:59 Intake Total 1379 / 1379 Balance 1379 / 1379 General: No apparent distress HEENT: Atraumatic, - - He has a small amount of irritation of the trach site with no purulent DC Oral: No Gingival or Mucosal Lesions/ Ulcerations, Dry Mucosa, - - lips are chapped. He is a mouth breather Neck: Trachea Midline Lungs: Clear to auscultation, No rhonchi, No wheeze, No rales, Diminished Cardiovascular: Regular rate - the resting HR is in the 90's, Regular Rhythm Abdomen: Bowel Sounds Present, Soft - No open wounds, Non-Distended, - - No guarding with palpation. The colostomy bag has a small amount of blood in it due to irritation of the stoma because the patient was pressing on it per his mother. Extremities: No cyanosis, Edema - Of the distal lower extremities Skin: No rashes, No breakdown Musculoskeletal: Muscle Wasting Neurological: - - flaccid LE's Microbiology Past 72 Hours 12/25/18 16:38 Mucosa - Nose Respiratory Panel (PCR) - Final 12/25/18 15:30 Urine, Random Streptococcus pneumoniae Antigen (M - Final 12/25/18 15:30 Urine, Random Legionella Antigen - Final Laboratory Results 12/25/18 15:00: WBC 9.3, RBC 4.68, Hgb 12.5 L, Hct 39.3 L, MCV 84.0, MCH 26.7 L, MCHC 31.8 L, RDW Std Deviation 45.3 H, RDW Coeff of Emilee 15.0 H, Plt Count 157, MPV 10.2, Immature Gran % (Auto) 0.200, Neut % (Auto) 73.3 H, Lymph % (Auto) 18.0 L, Twiggs % (Auto) 6.5, Eos % (Auto) 1.9, Baso % (Auto) 0.1, Absolute Neuts (auto) 6.8, Absolute Lymphs (auto) 1.68, Nucleated RBC % 0 12/25/18 15:00: PT 13.9, INR 1.1, APTT 35.8 12/25/18 15:00: Sodium 137, Potassium 3.9, Chloride 101, Carbon Dioxide 31.0, Anion Gap 5, BUN 18, Creatinine 0.33 L, Estim Creat Clear Calc 218.86, Est GFR (MDRD) Af Amer 384, Est GFR (MDRD) Non-Af 317, BUN/Creatinine Ratio 53.9 H, Glucose 91, Calcium 8.7, Total Bilirubin 0.20, AST 15, ALT 22, Alkaline Phosphatase 187 H, Total Protein 8.2, Albumin 3.2, Globulin 5.0 H, Albumin/Globulin Ratio 0.6 L 12/25/18 15:00: Lactic Acid 1.3 12/25/18 15:30: Urine Color Yellow, Urine Clarity Clear, Urine pH 8.0, Ur Specific Bernard 1.015, Urine Protein Negative, Urine Glucose (UA) Normal, Urine Ketones Negative, Urine Occult Blood Negative, Urine Nitrite Negative, Urine Bilirubin Negative, Urine Urobilinogen Normal, Ur Leukocyte Esterase Negative, Urine RBC 0 SEEN, Urine WBC 0 SEEN, Ur Squamous Epith Cells 0-5 SEEN, Amorphous Sediment 1+, Urine Bacteria 0 SEEN, Urine Mucus 0 SEEN 12/26/18 04:30: WBC 5.5, RBC 3.98 L, Hgb 10.7 L, Hct 33.6 L, MCV 84.4, MCH 26.9 L, MCHC 31.8 L, RDW Std Deviation 46.0 H, RDW Coeff of Emilee 15.1 H, Plt Count 116 L, MPV 9.7, Immature Gran % (Auto) 0.400, Neut % (Auto) 59.7, Lymph % (Auto) 27.4, Twiggs % (Auto) 9.4, Eos % (Auto) 2.9, Baso % (Auto) 0.2, Absolute Neuts (auto) 3.3, Absolute Lymphs (auto) 1.52, Nucleated RBC % 0 12/26/18 04:30: Sodium 143, Potassium 3.1 L, Chloride 107, Carbon Dioxide 28.0, Anion Gap 8, BUN 13, Creatinine 0.34 L, Estim Creat Clear Calc 212.42, Est GFR (MDRD) Af Amer 372, Est GFR (MDRD) Non-Af 307, BUN/Creatinine Ratio 37.9 H, Glucose 106, Calcium 7.7 L Current Medications Acetaminophen (Tylenol Liquid) 650 mg GT Q6H PRN PRN PRN Reason: Non-cardiac pain (-12/01) Albuterol Sulfate (Ventolin Aerosols) 2.5 mg INHALATION Q2H PRN PRN Reason: SHORTNESS OF BREATH Albuterol/Ipratropium (Duoneb) 3 ml INHALATION Q4HWA.RT [facility] Last Admin: 12/26/18 06:37 Dose: 3 ml Documented by: Baclofen (Lioresal) 20 mg GT 0000,0600,1200,1800 [facility] Last Admin: 12/26/18 05:54 Dose: 20 mg Documented by: Dextrose (D50w Syringe) 0 gm IV X1 PRN; Protocol PRN Reason: Hypoglycemia Enoxaparin Sodium (Lovenox) 40 mg SC DAILY@1000 JOYCE Ferrous Sulfate (Ferrous Sulfate Syrup) 300 mg GT DAILY JOYCE Furosemide (Lasix) 20 mg PO DAILY PRN PRN Reason: EDEMA Gabapentin (Neurontin) 400 mg GT 0000,0600,1200,1800 [facility] Last Admin: 12/26/18 05:55 Dose: 400 mg Documented by: Gabapentin (Neurontin) 100 mg GT 0000,0600,1200,1800 [facility] Last Admin: 12/26/18 05:55 Dose: 100 mg Documented by: Glucagon () 1 mg IM .X1 PRN PRN Reason: Hypoglycemia Heparin Sodium (Beef Lung) () 50 units IV UD PRN PRN Reason: Port-a-Cath (VAD)Heparin Flush Piperacillin Sod/Tazobactam (Sod 3.375 gm/ Sodium Chloride) 50 mls @ 12.5 mls/hr IV Q8 [facility] Last Admin: 12/26/18 05:57 Dose: 12.5 mls/hr Documented by: Enteral Nutritional Formula (Jevity 1.5) 1,000 mls @ 50 mls/hr GT .Q20H [facility] Last Admin: 12/25/18 22:42 Dose: 50 mls/hr Documented by: Lactobacillus Acidophilus (Acidophilus) 1 tablet GT DAILY JOYCE Lactulose (Chronulac, Cephulac) 20 gm GT BID PRN PRN Reason: CONSTIPATION Lansoprazole (Lansoprazole) 15 mg GT BID [facility] Last Admin: 12/25/18 22:41 Dose: 15 mg Documented by: Loratadine (Claritin) 10 mg GT DAILY [facility] Lorazepam (Ativan) 1 mg GT Q8H PRN PRN Reason: AGITATION Last Admin: 12/25/18 22:41 Dose: 1 mg Documented by: Magnesium Hydroxide (Milk Of Magnesia) 50 ml GT DAILY PRN PRN PRN Reason: Constipation Metoclopramide HCl (Reglan) 10 mg GT TID@0900,1600,2200 [facility] Non-Formulary Medication (Cholecalciferol (Vitamin D3) [Vitamin D3]) 5 ml MISCELL. DAILY [facility] Ondansetron HCl (Zofran) 4 mg IV Q6H PRN PRN PRN Reason: nausea vomiting Phenobarbital (Phenobarbital) 60 mg GT BID [facility] Last Admin: 12/25/18 22:42 Dose: 60 mg Documented by: Polyethylene Glycol (Miralax) 17 gm GT DAILY [facility] Potassium Chloride (Potassium Chl Soln) 15 meq GT DAILY PRN PRN Reason: WITH LASIX Senna/Docusate Sodium (Senokot-S, Kim-Colace) 1 tablet GT DAILY [facility] Simethicone (Mylicon) 40 mg GT TID [facility] Last Admin: 12/26/18 05:54 Dose: 40 mg Documented by: Sodium Chloride () 10 - 40 ml IV UD PRN PRN Reason: Port-a-Cath (VAD) Flush Sodium Chloride (0.9% Nacl (Sterile) Posiflush) 10 - 40 ml IV UD PRN PRN Reason: Port access or dressing change Medical Necessity - Tobacco Use Smoking Status: Never smoker Tobacco Use: Non-smoker Assessment/Plan All Active Problems (Last Reviewed 12/25/18 @ 16:43 by Torey James DO) Severe sepsis (Resolved) SIRS (systemic inflammatory response syndrome) (Acute) Viral syndrome (Acute) Sepsis (Acute) Pneumonia (Acute) Acute respiratory failure with hypoxia (Resolved) C. difficile colitis (Resolved) GJ malfunction (Resolved) Preop cardiovascular exam (Resolved) Impressions 1. Sepsis ( tachycardia and tachypnea due to suspected Aspiration pneumonia but, the CXR is a poor study done in expiration and it looks no different than last CXR. He is afebrile with a normal white blood cell count and normal differential. awaiting the sputum GM stain....if unremarkable will consider stopping antibiotics....he has had C. DIFF in the past. The last time he had CDIFF was in 2014. 2. acute respiratory insufficiency on chronic respiratory failure with a baseline requirement of 2 to 3 L of oxygen. 3. Iron deficiency anemia on recent iron studies-on no iron supplement. Will give IV iron sucrose while in the hospital and start a daily iron supplement as an outpatient. will likely require a stool softener since he has a hx of chronic constipation. 4. Hypokalemia-supplementation ordered. 5. Cerebral palsy with spastic quadriplegia on gabapentin and baclofen per PEG tube to control spasms. 6. Mitral valve prolapse with preserved ejection fraction on past echocardiogram. Follows with Dr. Waite for edema. 7. Remote history of C. difficile enterocolitis. The last episode was in 2014. 8. Status post colostomy. Await the results of the GM stain to guide antibiotics prior to the sputum culture results being available. Check MRSA nasal screen Maintain in the ICU at PCU level of care due to high requirement for suctioning, turning,nursing care Code Visit Inpatient E&M: 96027 [facility] Hosp L3
--- NOTE | 2018-12-26 08:46 | CPS ---
Pts. family performing home cough assist BID per home regimen. INFRASTRUCTURE ARCHITECT at bedside for 0835 cough assist treatment if any help was needed.
--- NOTE | 2018-12-26 10:47 | CPS ---
Pt. on home HME adapter attached to trach. 3L Bled into HME with pulse ox 96-98%. Will titrate O2 liter flow as possible, since pt. typically wears RA - 3L at home per family.
[2018-12-26] MEDS: Metoclopramide 10 MG/10 ML UDC GT ×3 (11:01→21:45)
[2018-12-26] MEDS: Loratadine 10 MG Tablet GT (11:02)
[2018-12-26] MEDS: Enoxaparin 40 MG/0.4 ML Syringe SC (11:02)
[2018-12-26] MEDS: Polyethylene Glycol 3350 17 GM PACKET GT (11:04)
[2018-12-26] MEDS: Senna/Docusate Sodium 1 Tablet GT (11:05)
[2018-12-26] MEDS: Phenobarbital 20 MG/5 ML UDC 60 MG GT ×2 (11:26→21:43)
--- NOTE | 2018-12-26 14:05 | CASEMGMT ---
RN CM Assessment Presentation: Sepsis, Pneumonia Intro role of CM and purpose of RN CM assessment to patient's mother in room. Demographics, PCP and Pharmacy verified. Pt has Cerebral Palsy, unable to participate in assessment. Mother and Father are main caregivers for patient. Per mother, they have extensive services and equipment at home. No new needs identified. Per mother, plan will be for pt to return home on discharge via their wheelchair van. If pt needs intermittent ventilatory support, this can be provided on the way home by the portable vent pt has. Mother is well versed in care of pt and use of equipment. PCP: Dr. Conn Specialists: Dr. Monsalve Preferred Pharmacy: [facility] Insurance: [employer] Prescription Benefit: yes LNOK: Mother and Father are legal guardians Living Arrangements: Pt lives with parents.Per mother, they have all equipment/assistance needs already. Transportation: Van parents own DME: Wheelchair, home has ceiling tract, estefany lift, elevator to lower level of home, cough assist device, feeding pump, hospital bed, ramp access into home. Oxygen: concentrator, ventilator HHC: [facility] 5-7 days per week 8am-8pm, aides 3 nights per week. Provided through [employer] [facility] Consult: Call to LAYA Sena-notification pt has legal guardian and services through [employer] DC PLAN: Anticipate Home with previous services. Ishan LEVINN RN ACM
--- NOTE | 2018-12-26 15:34 | NURSING ---
Documentation of Monica Cornejo reviewed
[2018-12-26 17:02] LABS: M R Staph aureus DNA By PCR Negative (Negative); Probe Check PASS; Specimen Processing Control PASS
[2018-12-26] MEDS: Nystatin Powder 15gm Bottle 1 APPLIC TOPICAL (21:29)
[2018-12-26] MEDS: NON-FORMULARY GT (21:37)
[2018-12-26] MEDS: Jevity 1.5 1,000 ML 50 ML GT (22:07)
[2018-12-27] VITALS (10 sets, daily range): BP systolic 106–117; BP diastolic 59–75; PULSE 70–108; RESP 13–21; TEMP 36.6–37.3; O2SAT 95–100
[2018-12-27] MEDS: Gabapentin 400 MG Capsule GT ×3 (00:21→11:59)
[2018-12-27] MEDS: Baclofen 10 MG Tablet 20 MG GT ×3 (00:22→11:56)
[2018-12-27] MEDS: Gabapentin 100 MG Capsule GT ×3 (00:24→11:59)
[2018-12-27] MEDS: Simethicone 40MG/0.6ML Bottle 40 MG GT (05:46)
--- NOTE | 2018-12-27 06:20 | PCM.PN.INT ---
Subjective: The patient was seen and examined at the bedside this morning. Events from the last 24 hours have been reviewed. The patient is currently afebrile, hemodynamically stable and maintaining appropriate oxygen saturations on his baseline ventilator parameters. Respiratory parameters appear to be baseline, per the patient's mother. Objective: The patient's most recent lab work, culture data and imaging studies have all been personally reviewed. Sputum culture was positive for 1+ Proteus mirabilis. General: Alert, No apparent distress, - - Resting comfortably in bed with family at the bedside. HEENT: Atraumatic, Normocephalic Oral: Moist Mucosa Neck: Supple, No Nodes, Trachea Midline, - - Tracheostomy site is C/D/I Lungs: No rhonchi, No wheeze, No rales, Diminished Cardiovascular: Regular rate, Regular Rhythm, Normal S1, Normal S2 Abdomen: Bowel Sounds Present, Soft, Distended, - - + G tube Extremities: No clubbing, No cyanosis, Edema Skin: No breakdown Musculoskeletal: No Muscle Wasting, - - Exaggerated kyphoscoliosis Lymphatic: No Cervical, Supraclavicular, or Inguinal Adenopathy Neurological: - - Spastic quadriplegia. Baseline neurological status. Psych/Mental Status: Flat Affect Vital Signs Temp Pulse Resp BP Pulse Ox 98.4 F 70 13 106/69 98 12/27/18 00:30 12/27/18 05:15 12/27/18 05:15 12/27/18 00:30 12/27/18 05:15 Oxygen Flow Rate (L/min) 3 Oxygen Delivery Method Mechanical Ventilator Weight: 159 lb Body Mass Index (BMI) 31.0 Intake and Output for Last 24 Hours 12/25/18 12/26/18 12/27/18 23:59 23:59 23:59 Intake Total 2893.13 / 2893.13 221.87 / 221.87 Output Total 200 / 200 Balance 2693.13 / 2693.13 221.87 / 221.87 Labs (Last 48 Hours) 12/25/18 12/25/18 12/25/18 15:00 15:00 15:00 WBC 9.3 RBC 4.68 Hgb 12.5 L Hct 39.3 L MCV 84.0 MCH 26.7 L MCHC 31.8 L RDW Std Deviation 45.3 H RDW Coeff of Emilee 15.0 H Plt Count 157 MPV 10.2 Immature Gran % (Auto) 0.200 Neut % (Auto) 73.3 H Lymph % (Auto) 18.0 L Wallace % (Auto) 6.5 Eos % (Auto) 1.9 Baso % (Auto) 0.1 Absolute Neuts (auto) 6.8 Absolute Lymphs (auto) 1.68 Nucleated RBC % 0 PT 13.9 INR 1.1 APTT 35.8 Sodium 137 Potassium 3.9 Chloride 101 Carbon Dioxide 31.0 Anion Gap 5 BUN 18 Creatinine 0.33 L Estim Creat Clear Calc 218.86 Est GFR (MDRD) Af Amer 384 Est GFR (MDRD) Non-Af 317 BUN/Creatinine Ratio 53.9 H Glucose 91 Lactic Acid Calcium 8.7 Total Bilirubin 0.20 AST 15 ALT 22 Alkaline Phosphatase 187 H Total Protein 8.2 Albumin 3.2 Globulin 5.0 H Albumin/Globulin Ratio 0.6 L Urine Color Urine Clarity Urine pH Ur Specific Sparks Urine Protein Urine Glucose (UA) Urine Ketones Urine Occult Blood Urine Nitrite Urine Bilirubin Urine Urobilinogen Ur Leukocyte Esterase Urine RBC Urine WBC Ur Squamous Epith Cells Amorphous Sediment Urine Bacteria Urine Mucus MRSA (PCR) 12/25/18 12/25/18 12/26/18 15:00 15:30 04:30 WBC 5.5 RBC 3.98 L Hgb 10.7 L Hct 33.6 L MCV 84.4 MCH 26.9 L MCHC 31.8 L RDW Std Deviation 46.0 H RDW Coeff of Emilee 15.1 H Plt Count 116 L MPV 9.7 Immature Gran % (Auto) 0.400 Neut % (Auto) 59.7 Lymph % (Auto) 27.4 Wallace % (Auto) 9.4 Eos % (Auto) 2.9 Baso % (Auto) 0.2 Absolute Neuts (auto) 3.3 Absolute Lymphs (auto) 1.52 Nucleated RBC % 0 PT INR APTT Sodium Potassium Chloride Carbon Dioxide Anion Gap BUN Creatinine Estim Creat Clear Calc Est GFR (MDRD) Af Amer Est GFR (MDRD) Non-Af BUN/Creatinine Ratio Glucose Lactic Acid 1.3 Calcium Total Bilirubin AST ALT Alkaline Phosphatase Total Protein Albumin Globulin Albumin/Globulin Ratio Urine Color Yellow Urine Clarity Clear Urine pH 8.0 Ur Specific Sparks 1.015 Urine Protein Negative Urine Glucose (UA) Normal Urine Ketones Negative Urine Occult Blood Negative Urine Nitrite Negative Urine Bilirubin Negative Urine Urobilinogen Normal Ur Leukocyte Esterase Negative Urine RBC 0 SEEN Urine WBC 0 SEEN Ur Squamous Epith Cells 0-5 SEEN Amorphous Sediment 1+ Urine Bacteria 0 SEEN Urine Mucus 0 SEEN MRSA (PCR) 12/26/18 12/26/18 04:30 14:20 WBC RBC Hgb Hct MCV MCH MCHC RDW Std Deviation RDW Coeff of Emilee Plt Count MPV Immature Gran % (Auto) Neut % (Auto) Lymph % (Auto) Wallace % (Auto) Eos % (Auto) Baso % (Auto) Absolute Neuts (auto) Absolute Lymphs (auto) Nucleated RBC % PT INR APTT Sodium 143 Potassium 3.1 L Chloride 107 Carbon Dioxide 28.0 Anion Gap 8 BUN 13 Creatinine 0.34 L Estim Creat Clear Calc 212.42 Est GFR (MDRD) Af Amer 372 Est GFR (MDRD) Non-Af 307 BUN/Creatinine Ratio 37.9 H Glucose 106 Lactic Acid Calcium 7.7 L Total Bilirubin AST ALT Alkaline Phosphatase Total Protein Albumin Globulin Albumin/Globulin Ratio Urine Color Urine Clarity Urine pH Ur Specific Sparks Urine Protein Urine Glucose (UA) Urine Ketones Urine Occult Blood Urine Nitrite Urine Bilirubin Urine Urobilinogen Ur Leukocyte Esterase Urine RBC Urine WBC Ur Squamous Epith Cells Amorphous Sediment Urine Bacteria Urine Mucus MRSA (PCR) Negative Microbiology 12/25/18 22:00 Sputum, Tracheal Aspirate Gram Stain - Final 12/25/18 22:00 Sputum, Tracheal Aspirate Respiratory Culture - Preliminary Gram negative lyn 12/25/18 16:38 Mucosa - Nose Respiratory Panel (PCR) - Final 12/25/18 15:30 Urine, Random Streptococcus pneumoniae Antigen (M - Final 12/25/18 15:30 Urine, Random Legionella Antigen - Final Clinical Impression(s) from Imaging Studies Chest X-Ray 12/25/18 14:15 IMPRESSION: Unfavorable change. Bilateral pulmonary infiltrates particularly in left upper lobe suggesting pneumonia or pulmonary edema. Electronically Signed: John Chavez MD (Brooks) at 14:54 EST , Service support , Abdomen X-Ray 12/25/18 17:36 IMPRESSION: No intestinal obstruction. Unremarkable stable-appearing abdominal radiography. Electronically Signed: Tenisha Garland, at 19:12 EST Tel , Service support , Medical Necessity - Tobacco Use Smoking Status: Never smoker Tobacco Use: Non-smoker Assessment/Plan All Active Problems (Last Reviewed 12/25/18 @ 16:43 by Torey James DO) Iron deficiency anemia (Acute) Hypokalemia (Resolved) Severe sepsis (Ruled-out) SIRS (systemic inflammatory response syndrome) (Acute) Viral syndrome (Ruled-out) Sepsis (Acute) Pneumonia (Acute) C. difficile colitis (Resolved) Acute respiratory failure with hypoxia (Resolved) C. difficile colitis (Resolved) GJ malfunction (Resolved) Preop cardiovascular exam (Resolved) RECOMMENDATIONS: 1. Transition from Zosyn to Levaquin suspension to complete a 7-day treatment course. 2. Continue baseline supplemental oxygen and noninvasive ventilator support on a nightly basis. 3. Continue tube feeds. 4. The patient should follow-up in the pulmonary medicine clinic within 2 weeks of discharge. IMPRESSIONS: 1. Chronic respiratory failure The patient has baseline cerebral palsy and spastic quadriplegia with a trach/PEG in place. He utilizes a noninvasive ventilator on an outpatient basis. At the current time, the patient's respiratory state appears to be baseline. There is some concern for potential aspiration pneumonia, given that the patient experienced episodes of emesis prior to his hospitalization. Cultures were obtained and found to be positive for 1+ Proteus mirabilis, which is sensitive to Levaquin. The patient will therefore be transitioned to Levaquin suspension with plans to complete a 7-day treatment course. Given that he is at his baseline from a respiratory perspective, he can be discharged home with plans to follow-up in the pulmonary medicine clinic within 2 weeks. 2. Cerebral palsy/seizure disorder/spastic quadriplegia Complicates care, management, recovery and prognosis. Continue home medications as indicated. This note was generated with [employer] software. It may contain incorrect words, spelling, and punctuation that were not noted in checking the note before signing. Code Visit Inpatient E&M: 38663 [facility]s Hosp L2
[2018-12-27] MEDS: Ipratropium/Albuterol Sulfate 3 ML AMPUL.NEB INHALATION ×2 (07:15→11:25)
[2018-12-27 07:22] LABS: Anion Gap 3 (5-15); BUN 12 mg/dL (7-18); BUN/Creat Ratio 45.3 RATIO (10-20); Calcium,Total 8.5 mg/dL (8.5-10.1); Chloride 108 mmol/L (98-107); Creatinine, Serum 0.26 mg/dL (0.70-1.30); EST Glomerular Filtration Rate 414 mL/min (>60); Est Glom Filt Rate - Afr Amer 501 mL/min (>60); Estimated Creatinine Clearance 277.78 ml/min; Glucose 90 mg/dL (74-106); Magnesium 2.2 mg/dL (1.6-2.6); Potassium 4.1 mmol/L (3.5-5.1); Sodium Level 140 mmol/L (136-145)
--- NOTE | 2018-12-27 09:54 | CASEMGMT ---
Addendum entered by Romana Paez 12/27/18 11:02: LAYA faxed discharge instructions w/order to resume home health care both to Trinity Conn at [facility] and Isa at [facility]. CARMINE Jenkins Original Note: SW spoke w/pt's parents in room, confirmed that Trinity Conn is still pt's case fitter with the [facility] ([phone], [phone]). SW explained will let [facility] know also that pt is returning home today. Pt's mother inquired if pt will need to be reassessed. SW explained will find out. SW called Trinity Conn at the [facility] , let her know pt is going home today. She asked for discharge instructions to be faxed to her ([phone]). SW called RE Moss w/[facility] ([phone]), let her know pt is going home today. Pt will need reassessed, as he was in hospital and his certification period ended yesterday and needed reassessed anyway. LAYA will fax discharge instructions and orders to her as well once they are completed ([phone]). LAYA let pt's mother know that pt will need reassessed. Once discharge instructions are completed LAYA will fax to Trinity at [facility] and RE Moss with [facility]. CARMINE Jenkins
--- NOTE | 2018-12-27 10:03 | PCM.DC ---
- Discharge Diagnoses Current Active Problems: Current Active and Chronic Problems (Last Reviewed 12/25/18 @ 16:43 by Torey James DO) Sepsis (Acute) Pneumonia (Acute) You will use the following diet at home:: Other - resume tube feed as previously taken Discharge Activity: Return to Normal Activity Call your doctor if you observe: Fever of 101 or Higher, Shortness of breath, - - Call your PCP if severe diarrhea ( > 5 stools a day), painful sores in the mouth, painful swallowing, rash or itching. Taking a probiotic such as Lactobacillus or Kefir can help with loose stools while taking antibiotics. Look for any change in the secretions from the trach. Are there more secretions? Have the secretions changed color? Is his respiratory rate increasing? Is the heart rate greater than 100 consistently? Additional Instructions: 1. The sputum is growing a bacteria called Proteus and it is resistant to many different antibiotics. Fortunately it is sensitive to Levaquin and Levaquin gets very good blood levels when given through the PEG. He received the first dose of the Levaquin in the hospital and he will need to take it for 6 additional doses. Start on 12/28 since it is only given once a day. 2. Instead of taking multiple different drugs for constipation I recommend increasing the Miralax to 17 GM twice a day. If he has had decreased stool output for 2 days then give milk of magnesia 45-60 cc. 3. He should follow up with Dr. Moreira in the office in the next 2 weeks. 4. Iron needs an acidic enviroment to be absorbed. Pantoprozole decreases acid production in the stomache 90-95% and so patients on iron and Pantoprozole do not absorb iron well. He had 2 doses of IV iron in the hospital. I would give the iron 2-3 hours prior to the next dose of iron and give the iron with the vitamin C I have prescribed. If the Vitamin C syrup is expensive then give the iron with OJ. 5. If Adrian has vomiting or loose stool in an increased volume increase the water flushes and hold the Lasix until the N/V/D have resolved so that he will stay hydrated. 6. My cell phone # is [phone] and I am here all week if you have any questions! Allergies/Adverse Reactions: Allergies cisapride monohydrate [From Propulsid] Allergy (Verified 12/25/18 13:37) Rash codeine Adverse Reaction (Verified 12/25/18 13:37) hallucinations metronidazole [From Flagyl] Adverse Reaction (Verified 12/25/18 13:37) Rash morphine Adverse Reaction (Verified 12/25/18 13:37) Hallucinations dust Allergy (Uncoded 12/25/18 13:37) Other Medications to take at Discharge Simethicone 40MG/0.6ML [Mylicon] 40 mg GT TID 11/09/13 Pantoprazole Sodium [Protonix] 20 ml GT BID 08/09/14 Phenobarbital 60 mg GT BID 02/19/17 Cetirizine HCl [Zyrtec] 10 mg GT DAILY 02/04/18 Lactobacillus Acidophilus [Acidophilus] 1 cap GT DAILY 02/04/18 Baclofen 20 mg GT 4X/DAY 07/14/18 Gabapentin 500 mg GT 4X/DAY 07/14/18 metoclopramide 5 mg/5 mL oral solution 10 mg GT TID ml 09/16/18 Lorazepam [Ativan] 1 mg GT Q8 PRN 10/08/18 Cholecalciferol (Vitamin D3) [Vitamin D3] 5 ml GT DAILY 12/25/18 Cough Assist 1 dose .ROUTE .MEDSUPPLY 12/25/18 Ferrous Sulfate 5 ml GT DAILY 12/25/18 Furosemide 20 mg GT DAILY PRN 12/25/18 Potassium Chloride 15 meq GT DAILY PRN 12/25/18 oxygen concentrator 1 dose .ROUTE .MEDSUPPLY 12/25/18 Ascorbic Acid [Vitamin C] 500 mg PO DAILY #150 mls 12/27/18 Levofloxacin [Levaquin] 750 mg PO DAILY #6 tab 12/27/18 Magnesium Hydroxide [Milk Of Magnesia] 35 - 50 ml GT DAILY PRN PRN #0 12/27/18 Polyethylene Glycol 3350 [Miralax] 17 gm GT Q12H #0 12/27/18 The following prescriptions were given: Levofloxacin [Levaquin] 750 mg PO DAILY #6 tab Transmission Status: Pending to [facility] Ascorbic Acid [Vitamin C] 500 mg PO DAILY #150 mls Transmission Status: Pending to [facility] Primary Care Physician: Timmy Conn MD [Primary Care Provider] - Please follow up with your Primary Care Physician in: 5-7 days Test Results: Test results from this visit will be discussed in further detail at your follow-up appointment, if applicable. Please Follow Up With: Valarie Kee NP-C When: the office will call with an appt Proposed Discharge Date: 12/27/18
[2018-12-27] MEDS: Metoclopramide 10 MG/10 ML UDC GT (10:04)
--- NOTE | 2018-12-27 10:04 | CASEMGMT ---
Pt's parents are his guardians, document scanned into summary tab of echart. CARMINE Jenkins
[2018-12-27] MEDS: Loratadine 10 MG Tablet GT (10:09)
[2018-12-27] MEDS: Polyethylene Glycol 3350 17 GM PACKET GT (10:10)
[2018-12-27] MEDS: Nystatin Powder 15gm Bottle 1 APPLIC TOPICAL (10:10)
[2018-12-27] MEDS: Phenobarbital 20 MG/5 ML UDC 60 MG GT (10:16)
[2018-12-27] MEDS: levoFLOXacin 750 MG Tablet PO (10:16)
[2018-12-27] MEDS: NON-FORMULARY GT (10:18)
--- NOTE | 2018-12-27 10:34 | PCM.DC.SUM ---
Discharge Date and Diagnosis Date of Admission: 12/25/18 Date of Discharge: 12/27/18 - Primary Discharge Diagnosis Active and Suspected Problems (Last Reviewed 12/25/18 @ 16:43 by Torey James DO) Sepsis (Acute) Pneumonia (Acute) Hypokalemia-resolved - Secondary Discharge Diagnosis Chronic Problems (Last Reviewed 12/25/18 @ 16:43 by Torey James DO) Iron deficiency anemia (Acute) Edema (Chronic) Chronic respiratory failure (Chronic) Nonrheumatic mitral valve prolapse (Chronic) Cerebral palsy (Chronic) Quadriplegic Severe mental retardation Chronic constipation PEG tube Hospital Course and Treatment Imaging Results: Clinical Impression(s) from Imaging Studies Chest X-Ray 12/25/18 14:15 IMPRESSION: Unfavorable change. Bilateral pulmonary infiltrates particularly in left upper lobe suggesting pneumonia or pulmonary edema. Electronically Signed: John Chavez MD (Brooks) at 14:54 EST , Service support , Abdomen X-Ray 12/25/18 17:36 IMPRESSION: No intestinal obstruction. Unremarkable stable-appearing abdominal radiography. Electronically Signed: Tenisha Garland, at 19:12 EST Tel , Service support , Microbiology 12/25/18 15:00 Blood Culture (Wb) - Port Blood Culture - Final No growth in 5 days. 12/25/18 16:10 Blood Culture (Wb) - Right Hand Blood Culture - Final No growth in 5 days. 12/25/18 22:00 Sputum, Tracheal Aspirate Gram Stain - Final 12/25/18 22:00 Sputum, Tracheal Aspirate Respiratory Culture - Final Proteus mirabilis 12/25/18 15:30 Urine Catheter - Catheter Urine Culture - Final Culture exhibits no growth. 12/25/18 16:38 Mucosa - Nose Respiratory Panel (PCR) - Final 12/25/18 15:30 Urine, Random Streptococcus pneumoniae Antigen (M - Final 12/25/18 15:30 Urine, Random Legionella Antigen - Final Dr. Yovanny Moreira-electrophysiology tech/pulmonary medicine Operations: None Procedures: None Summary of Care Provided: The pt is a 38 YO male with a PMH of cerebral palsy (on a ventilator - at night only), tracheostomy, severe mental retardation, nonrheumatic mitral valve prolapse, chronic respiratory failure with hypoxemia, quadriplegia, chronic constipation and PEG tube who was admitted to [facility] on 12/25/18 with sepsis and acute respiratory insufficiency secondary to aspiration pneumonia after vomiting twice at home. He was started on Zosyn and Vancomycin and admitted to the ICU on his ventilator with 3.5 LPM O2. Pneumococcal and Legionella antigens in the urine were negative. Respiratory panel was negative. Chest x-ray showed bilateral pulmonary infiltrates per radiology but, it was done in expiration and it does not appear to be significantly different than previous CXR's. Sputum Gram stain showed 2+ white blood cells and grew Proteus mirabilis sensitive to Zosyn. Lab in the hospital revealed a low hemoglobin at 10.7 following hydration with an MCV of 84.4 and an elevated RDW. Platelet count was low at 116,000 and this was most likely secondary to enoxaparin and Zosyn combined. Iron studies had recently been obtained and showed a serum iron of 45, TIBC of 290 and a low ferritin at 19. He was placed on an iron supplement however he does routinely take a PPI and the iron is not likely to be absorbed. He received 200 mg of IV iron sucrose x2 in the hospital and was sent home with a prescription for vitamin C to be taken with the iron supplement. He was afebrile for the duration of his hospital admission and the WBC count was normal with an unremarkable diff. He improved quickly and on 12/27/18 he was stable for DC. He was transitioned from Zosyn to Levaquin 750 mg daily to complete 7 days of treatment. His mother was instructed to give the varus sulfate with 500 cc of ascorbic acid or orange juice per the PEG tube once daily. She was also made aware that the iron can causes constipation. She was instructed to increase the Miralax to BID and to give MOM if he has not moved his bowels in 3 days. He will follow up with Dr. Conn in 5-7 days. No apparent distress No significant erythema around the trach site and no purulent discharge Trachea is midline Lungs-clear to auscultation Heart-regular rate, regular rhythm, no gallop Abdomen-soft, nondistended, bowel sounds present edema of the LE's - chronic This note was generated with Osen dictation software. It may contain incorrect words, spelling, and punctuation that were not noted in checking the note before signing. - Physical Exam Vitals/I&O's: Vital Signs Temp Pulse Resp BP Pulse Ox 99.2 F H 90 16 113/59 L 95 12/27/18 08:00 12/27/18 08:00 12/27/18 08:00 12/27/18 08:00 12/27/18 08:00 Oxygen Flow Rate (L/min) 2 Oxygen Delivery Method T-piece Weight: 158 lb 15.993 oz Body Mass Index (BMI) 31.0 Intake and Output for Last 24 Hours 12/25/18 12/26/18 12/27/18 23:59 23:59 23:59 Intake Total 2893.13 / 2893.13 678.87 / 678.87 Output Total 200 / 200 Balance 2693.13 / 2693.13 678.87 / 678.87 Microbiology Past 72 Hours 12/25/18 15:30 Urine Catheter - Catheter Urine Culture - Final Culture exhibits no growth. 12/25/18 22:00 Sputum, Tracheal Aspirate Gram Stain - Final 12/25/18 22:00 Sputum, Tracheal Aspirate Respiratory Culture - Preliminary Proteus mirabilis 12/25/18 16:38 Mucosa - Nose Respiratory Panel (PCR) - Final 12/25/18 15:30 Urine, Random Streptococcus pneumoniae Antigen (M - Final 12/25/18 15:30 Urine, Random Legionella Antigen - Final Laboratory Results 12/26/18 14:20: MRSA (PCR) Negative 12/27/18 06:40: Sodium 140, Potassium 4.1, Chloride 108 H, Carbon Dioxide 29.0, Anion Gap 3 L, BUN 12, Creatinine 0.26 L, Estim Creat Clear Calc 277.78, Est GFR (MDRD) Af Amer 501, Est GFR (MDRD) Non-Af 414, BUN/Creatinine Ratio 45.3 H, Glucose 90, Calcium 8.5, Magnesium 2.2 Current Medications Acetaminophen (Tylenol Liquid) 650 mg GT Q6H PRN PRN PRN Reason: Non-cardiac pain (4-10) Albuterol Sulfate (Ventolin Aerosols) 2.5 mg INHALATION Q2H PRN PRN Reason: SHORTNESS OF BREATH Albuterol/Ipratropium (Duoneb) 3 ml INHALATION Q4HWA.RT [facility] Last Admin: 12/27/18 07:15 Dose: 3 ml Documented by: Baclofen (Lioresal) 20 mg GT 0000,0600,1200,1800 [facility] Last Admin: 12/27/18 05:44 Dose: 20 mg Documented by: Dextrose (D50w Syringe) 0 gm IV X1 PRN; Protocol PRN Reason: Hypoglycemia Enoxaparin Sodium (Lovenox) 40 mg SC DAILY@1000 [facility] Last Admin: 12/27/18 10:09 Dose: Not Given Documented by: Ferrous Sulfate (Ferrous Sulfate Syrup) 300 mg GT DAILY [facility] Last Admin: 12/26/18 10:49 Dose: Not Given Documented by: Gabapentin (Neurontin) 400 mg GT 0000,0600,1200,1800 [facility] Last Admin: 12/27/18 05:43 Dose: 400 mg Documented by: Gabapentin (Neurontin) 100 mg GT 0000,0600,1200,1800 [facility] Last Admin: 12/27/18 05:45 Dose: 100 mg Documented by: Glucagon () 1 mg IM .X1 PRN PRN Reason: Hypoglycemia Heparin Sodium (Beef Lung) () 50 units IV UD PRN PRN Reason: Port-a-Cath (VAD)Heparin Flush Piperacillin Sod/Tazobactam (Sod 3.375 gm/ Sodium Chloride) 50 mls @ 12.5 mls/hr IV Q8 [facility] Last Admin: 12/27/18 05:42 Dose: 12.5 mls/hr Documented by: Enteral Nutritional Formula (Jevity 1.5) 1,000 mls @ 50 mls/hr GT .Q20H [facility] Last Admin: 12/26/18 22:07 Dose: 50 mls/hr Documented by: Iron Sucrose 200 mg/ Sodium (Chloride) 110 mls @ 220 mls/hr IV DAILY [facility] Stop: 12/28/18 10:29 Last Infusion: 12/26/18 13:54 Dose: Infused Documented by: Lactobacillus Acidophilus (Acidophilus) 1 tablet GT DAILY [facility] Last Admin: 12/27/18 10:05 Dose: 1 tablet Documented by: Lactulose (Chronulac, Cephulac) 20 gm GT BID PRN PRN Reason: CONSTIPATION Loratadine (Claritin) 10 mg GT DAILY [facility] Last Admin: 12/27/18 10:09 Dose: 10 mg Documented by: Lorazepam (Ativan) 1 mg GT Q8H PRN PRN Reason: AGITATION Last Admin: 12/25/18 22:41 Dose: 1 mg Documented by: Magnesium Hydroxide (Milk Of Magnesia) 50 ml GT DAILY PRN PRN PRN Reason: Constipation Metoclopramide HCl (Reglan) 10 mg GT TID@0900,1600,2200 [facility] Last Admin: 12/27/18 10:04 Dose: 10 mg Documented by: Non-Formulary Medication (Cholecalciferol (Vitamin D3) [Vitamin D3]) 5 ml MISCELL. DAILY [facility] Last Admin: 12/27/18 10:07 Dose: Not Given Documented by: Non-Formulary Medication (Non-Formulary) 0 GT BID [facility] Last Admin: 12/27/18 10:18 Dose: 20 Documented by: Nystatin (Mycostatin Powder) 1 applic TOPICAL BID [facility]; Protocol Last Admin: 12/27/18 10:10 Dose: 1 applicatio Documented by: Ondansetron HCl (Zofran) 4 mg IV Q6H PRN PRN PRN Reason: nausea vomiting Phenobarbital (Phenobarbital) 60 mg GT BID [facility] Last Admin: 12/27/18 10:16 Dose: 60 mg Documented by: Polyethylene Glycol (Miralax) 17 gm GT DAILY [facility] Last Admin: 12/27/18 10:10 Dose: 17 gm Documented by: Potassium Chloride (Potassium Chl Soln) 15 meq GT DAILY PRN PRN Reason: WITH LASIX Senna/Docusate Sodium (Senokot-S, Kim-Colace) 1 tablet GT DAILY [facility] Last Admin: 12/27/18 10:12 Dose: Not Given Documented by: Simethicone (Mylicon) 40 mg GT TID [facility] Last Admin: 12/27/18 05:46 Dose: 40 mg Documented by: Sodium Chloride () 10 - 40 ml IV UD PRN PRN Reason: Port-a-Cath (VAD) Flush Sodium Chloride (0.9% Nacl (Sterile) Posiflush) 10 - 40 ml IV UD PRN PRN Reason: Port access or dressing change Discharge Activity: Return to Normal Activity Call your doctor if you observe: Fever of 101 or Higher, Shortness of breath, - - Call your PCP if severe diarrhea ( > 5 stools a day), painful sores in the mouth, painful swallowing, rash or itching. Taking a probiotic such as Lactobacillus or Kefir can help with loose stools while taking antibiotics. Look for any change in the secretions from the trach. Are there more secretions? Have the secretions changed color? Is his respiratory rate increasing? Is the heart rate greater than 100 consistently? Home Medications: Medications to take at Discharge Simethicone 40MG/0.6ML [Mylicon] 40 mg GT TID 11/09/13 Pantoprazole Sodium [Protonix] 20 ml GT BID 08/09/14 Phenobarbital 60 mg GT BID 02/19/17 Cetirizine HCl [Zyrtec] 10 mg GT DAILY 02/04/18 Lactobacillus Acidophilus [Acidophilus] 1 cap GT DAILY 02/04/18 Baclofen 20 mg GT 4X/DAY 07/14/18 Gabapentin 500 mg GT 4X/DAY 07/14/18 metoclopramide 5 mg/5 mL oral solution 10 mg GT TID ml 09/16/18 Lorazepam [Ativan] 1 mg GT Q8 PRN 10/08/18 Cholecalciferol (Vitamin D3) [Vitamin D3] 5 ml GT DAILY 12/25/18 Cough Assist 1 dose .ROUTE .MEDSUPPLY 12/25/18 Ferrous Sulfate 5 ml GT DAILY 12/25/18 Furosemide 20 mg GT DAILY PRN 12/25/18 Potassium Chloride 15 meq GT DAILY PRN 12/25/18 oxygen concentrator 1 dose .ROUTE .MEDSUPPLY 12/25/18 Ascorbic Acid [Vitamin C] 500 mg PO DAILY #150 mls 12/27/18 Levofloxacin [Levaquin] 750 mg PO DAILY #6 tab 12/27/18 Magnesium Hydroxide [Milk Of Magnesia] 35 - 50 ml GT DAILY PRN PRN #0 12/27/18 Polyethylene Glycol 3350 [Miralax] 17 gm GT Q12H #0 12/27/18 Following Prescrptions Were Given to Patient: Levofloxacin [Levaquin] 750 mg PO DAILY #6 tab Transmission Status: Received by [facility] Ascorbic Acid [Vitamin C] 500 mg PO DAILY #150 mls Transmission Status: Received by [facility] Primary Care Physician: Timmy Conn MD [Primary Care Provider] - Please follow up with your Primary Care Physician in: 5-7 days Please Follow Up With: Valarie Kee NP-C When: the office will call with an appt Disposition: Home Minutes spent on discharge:: 30 Patient Condition:: Stable Medical Necessity - Tobacco Use Smoking Status: Never smoker Tobacco Use: Non-smoker Meaningful Use Info Meaningful Use Diagnoses (Choose all that apply): None applicable Code Visit Inpatient E&M: 26292 Disch Hosp
[2018-12-27] MEDS: 0.9 % NaCl (Sterile) Posiflush 10 mL IV (12:57)
== END 2018-12-27 12:40 | disposition home or self-care (01) | DRG 871 ==
LOC: ED 14:31 → PCU 16:43 → ICU 20:40
PROVIDERS: Internal Medicine Critical Care Medicine; Emergency Provider Emergency Medicine; Family Provider Family Medicine; PCP Family Medicine; Visit Provider Internal Medicine
DX: A41.9 Sepsis, unspecified organism (principal); J69.0 Pneumonitis due to inhalation of food and vomit; G80.0 Spastic quadriplegic cerebral palsy; F72 Severe intellectual disabilities; J96.11 Chronic respiratory failure with hypoxia; Z93.0 Tracheostomy status; Z93.3 Colostomy status; Z93.1 Gastrostomy status; I34.1 Nonrheumatic mitral (valve) prolapse; K59.09 Other constipation; Z99.81 Dependence on supplemental oxygen; E87.6 Hypokalemia; D50.9 Iron deficiency anemia, unspecified
CPT/HCPCS: 31720; 36415; 36591; 71045; 74019; 80048; 80053; 81001; 83605; 83735; 85025; 85610; 85730; 87040; 87070; 87077; 87086; 87186; 87205; 87449; 87633; 87641; 94640; 97110; 97162; 97166; 97802; 97803; 99285; J1756; J7030; J7040

== ENCOUNTER → 2019-01-23 10:32 | Outpatient (CLI) | payer BC, MEDICAID, SELFPAY ==
[2019-01-09 07:35] VITALS: BMI 30.4
[2019-01-23 12:39] LABS: Absolute Lymphocyte Count 2.03 X10^3/uL (0.83-4.51); Absolute Neutrophil Count 2.1 X10^3/uL (2.0-7.7); Basophil# 0.01 X10^3/uL; Basophil% 0.2 % (0-1); Eosinophil# 0.26 X10^3/uL; Eosinophils% 5.4 % (0-5); Hematocrit 36.1 % (40-54); Hemoglobin 11.4 g/dL (13.0-16.5); Lymphocyte # 2.03 X10^3/ul (4.0); Lymphocyte % 42.1 % (19-41); Mean Corp Hgb Conc 31.6 g/dL (32-36); Mean Corpuscular Volume 85.3 fL (80-94); Mean Platelet Vol. 11.4 fl (6.2-12.0); Monocyte# 0.45 X10^3/uL; Monocyte% 9.3 % (0-10); NRBC Flagged by Analyzer 0 % (0-5); Neutrophil # 2.07 X10^3/uL (2.7-7.7); Platelet Count 151 K/mm3 (150-450); RBC Distribution Width SD 46.8 fl (35.1-43.9); Red Blood Count 4.23 M/mm3 (4.6-6.2); White Blood Count 4.8 K/mm3 (4.4-11.0)
[2019-01-23 12:48] LABS: Anion Gap 8 (5-15); BUN 15 mg/dL (7-18); BUN/Creat Ratio 53.2 RATIO (10-20); Calcium,Total 8.7 mg/dL (8.5-10.1); Chloride 102 mmol/L (98-107); Creatinine, Serum 0.28 mg/dL (0.70-1.30); EST Glomerular Filtration Rate 385 mL/min (>60); Est Glom Filt Rate - Afr Amer 466 mL/min (>60); Ferritin 78 ng/mL (26-388); Glucose 86 mg/dL (74-106); Iron 43 ug/dL (65-175); Iron Binding Capacity,Total 243 ug/dL (250-450); Potassium 3.7 mmol/L (3.5-5.1); Sodium Level 139 mmol/L (136-145)
== END ==
PROVIDERS: Family Provider Family Medicine; PCP Family Medicine; Referring Provider Family Medicine; Visit Provider Family Medicine
DX: D64.9 Anemia, unspecified (principal)
CPT/HCPCS: 36415; 80048; 82728; 83540; 83550; 85025

== ENCOUNTER 2019-01-25 13:23 | Outpatient (RCR) | payer BC, MEDICAID, SELFPAY ==
[2019-01-09 07:35] VITALS: BMI 30.4
--- NOTE | 2019-01-25 14:20 | HP.PTEVAL ---
Patient's Visit Information KRISS MICHAEL is a 38 year old M referred to Physical Therapy by Timmy Conn MD with a diagnosis of INFANTILE CEREBRAL PALSY. Date of Evaluation: 01/25/19 Physical Therapist: Andrzej Contreras PT, Cert MDT, OCS - Visit Plan Frequency: 1 visit Plan: EVAL ONLY FOR: RECOMMEND RIFTON LARGE BLUE SHOWER CHAIR, CHEST STRAP WITH LATERAL POSTIONING,HEAD BLOCKS,LEG STRAPS,CALF REST AND SHOWER STAND DUE TO PATIENT TOTAL DEPENDANT - Subjective Findings: This 38 y/o male presents to physical therapy with infantile cerebral palsy. Patient born with CP with bacoflin pump,ventilator at night 3l02 ,during day HME with trach 1l02 ,peg tube ,colostomy,seizures,multple hip surgery 10 years old ,muliple soft tissue release in legs. Patient is totally dependant with ADL's /self hygine,and dependant wit ransfers with ceiling track. Handicaped bathroom ,wheel in shower,ramp to house,elevator to basement,lift for van. Patient non verbal uses eye points. Patient has [employer] 18-24 hrs per day. Patient expresses pain by fascial .Patient has no pressure sore has custom w/c with body contour.Patient has spasticity has feet straped. HOME SITUATION: 1STORY LIVES WITH PARENTS and HAS [employer] - Objective POSTURE: posterior pelvic tilt pelvis deformity ,leg length discrepecny ,head tilt to right ,. TONE: ridgid spastic trunck ,spasticity ridgid in UE /LE. PROM: hip 20 degrees flexion,knee right~ 20 degrees,left ~30 degrees,shoulder flexion~ 80 degrees,elbow in extension with ~50 degrees. SITTING BALANCE : ABSENT. MOBILTY : ELECTRIC W/C driven by regular senior care provider and VEM with o2 ,peg tube. TRANSFERS: mechanical ceiling tracking - Goals Goal 1:: RECOMMEND RIFTON LARGE BLUE SHOWER CHAIR WITH ACCESSORIES FABRIC COVER,CHEST STRAP WITH LATERAL POSTIONING,HEAD BLOCKS,LEG STRAPS AND SHOWER STAND. Goal Time Frame: 1 VISIT - Rehabilitation Potential Physical Therapy Diagnosis: This patient has cerebral palsy with complete dependant with ADLS' peg tube for feeding and mechanical ceitling tracker for transfers thus benifit from custom shower chair. Rehabilitation Potential: Questionable - Anticipated Interventions Patient/Client Instruction: Educate patient on: Plan of Care For the Purpose of:: Other Other: [facility]OMM[facility] Thank you for the opportunity to evaluate your patient. For Medicare and Medicare HMO plans, please review the plan of care and approve it. It will need to be FAXED BACK to us at [phone] for Medicare purposes. For Medicare only, by signing this I certify the plan of care. Please let me know if there are questions or concerns regarding this plan of care. Physician Signature: Date:
== END 2019-01-25 19:00 | disposition home or self-care (01) ==
LOC: PT 13:23
PROVIDERS: Family Provider Family Medicine; PCP Family Medicine; Referring Provider Family Medicine; Visit Provider Family Medicine
DX: G80.8 Other cerebral palsy (principal)
CPT/HCPCS: 97163

== ENCOUNTER → 2019-01-25 14:16 | Outpatient (CLI) | payer BC, MEDICAID, SELFPAY ==
[2019-01-09 07:35] VITALS: BMI 30.4
--- NOTE | 2019-01-25 14:35 | RAD_ITS ---
STUDY: X-RAY CHEST REASON FOR EXAM: Male, 38 years old. Aspiration pneumonia TECHNIQUE: PA and lateral views of the chest. COMPARISON: 12/25/2018 FINDINGS: Lungs are moderately hypoinflated. Tracheostomy tube is noted. Right chest wall Mediport. Bibasilar airspace disease, likely atelectasis and less likely infection. Not fully excluded however. Borderline cardiomegaly. Scattered gaseous distended loops of large bowel. RAD/Chest PA and Lateral IMPRESSION: Tracheostomy tube. Hypoinflation lungs. Probable bibasilar atelectasis and less likely infection. Electronically Signed: Jarod Espinoza DO at 12:01 EST Tel , Service support ,
== END ==
PROVIDERS: Family Provider Family Medicine; PCP Family Medicine; Referring Provider Family Medicine; Visit Provider Family Medicine
DX: J69.0 Pneumonitis due to inhalation of food and vomit (principal)
CPT/HCPCS: 71046

== ENCOUNTER 2019-02-03 06:48 | Emergency (ER) | payer BC, MEDICAID, SELFPAY ==
[2019-01-09 07:35] VITALS: BMI 30.4
[2019-02-03 06:49] VITALS: BP 126/85; PULSE 107; RESP 19; RESP 21; TEMP 37.9; O2SAT 91; BMI 32.5
[2019-02-03 06:54] VITALS: BP 139/96; PULSE 86; RESP 17; TEMP 37.9; O2SAT 93
--- NOTE | 2019-02-03 07:12 | RAD_ITS ---
STUDY: X-RAY CHEST REASON FOR EXAM: Male, 39 years old. Fever. Tachycardia TECHNIQUE: Single AP portable view of the chest. COMPARISON: January 25, 2019. FINDINGS: There is tracheotomy. This port on the right extending to the right atrium. The lungs are underexpanded. There is no focal infiltrate. There is no demonstrated pleural abnormality. Normal size heart. Normal mediastinum and rachelle. Normal visualized pulmonary arteries. Normal visualized aortic arch and descending thoracic aorta. Normal visualized thoracic spine. Normal visualized ribs, clavicles, and shoulders. There is no demonstrated abnormality of the visualized soft tissue structures of the upper abdomen. RAD/Chest 1 View (Portable) IMPRESSION: Hypoventilatory exam. No definite infiltrate. Electronically Signed: Siddharth Benavides MD at 8:06 EST , Service support ,
--- NOTE | 2019-02-03 07:14 | CT_ITS ---
STUDY: CT ABDOMEN AND PELVIS WITHOUT CONTRAST REASON FOR EXAM: Male, 39 years old. Abdominal distention. Fever. Cerebral palsy. Quadriplegia and colostomy. Percutaneous gastrostomy. RADIATION DOSAGE (If Supplied By Facility): CTDIvol = ( 17.85 ) mGy, DLP = ( 927.66 ) mGycm TECHNIQUE: Transaxial images were obtained from the dome of the diaphragm to the symphysis pubis without oral contrast, and without intravenous contrast. Sagittal and coronal images were reconstructed. Individualized dose optimization techniques were used for this CT. COMPARISON: October 08, 2018 FINDINGS: Lower lung interstitial and groundglass increased opacities. There is port on the right extending to the lower superior vena cava. The visualized portions of the heart are within normal limits. Normal liver. There is non-visualization of the gallbladder, which may be secondary to either contraction or a prior cholecystectomy. Normal spleen. Normal pancreas. Normal bilateral adrenal glands. Normal right kidney. Normal left kidney. Percutaneous gastrostomy in the stomach. Normal small intestine. There is stable colostomy in the left lower quadrant. There is moderately abundant stool in the rectal stump. The appendix is visualized and appears normal. Normal abdominal aorta. Normal inferior vena cava. Normal retroperitoneum. There is a Augustin catheter in the urinary bladder. There is no free fluid in the abdomen or pelvis. Stable postoperative changes the right lower abdominal wall. There are fat-containing inguinal hernias. There are chronic changes of the bilateral hips. There is muscular atrophy. CT/Abdomen/Pelvis without Cont IMPRESSION: No obstruction. Chronic and postoperative changes. Electronically Signed: Siddharth Benavides MD at 9:07 EST , Service support ,
[2019-02-03] MEDS: 0.9% Normal Saline 1,000 ML 1000 ML IV (07:33)
[2019-02-03 07:34] LABS: Absolute Lymphocyte Count 2.95 X10^3/uL (0.83-4.51); Basophil# 0.02 X10^3/uL; Basophil% 0.2 % (0-1); Eosinophil# 0.22 X10^3/uL; Eosinophils% 2.7 % (0-5); Hematocrit 38.9 % (40-54); Hemoglobin 12.4 g/dL (13.0-16.5); Lymphocyte # 2.95 X10^3/ul (4.0); Lymphocyte % 36.5 % (19-41); Mean Corp Hgb Conc 31.9 g/dL (32-36); Mean Corpuscular Hgb 26.4 pg (27.0-32.0); Mean Corpuscular Volume 82.8 fL (80-94); Mean Platelet Vol. 10.5 fl (6.2-12.0); Monocyte# 0.92 X10^3/uL; Monocyte% 11.4 % (0-10); NRBC Flagged by Analyzer 0 % (0-5); Neutrophil # 3.95 X10^3/uL (2.7-7.7); Platelet Count 166 K/mm3 (150-450); RBC Distribution Width CV 14.9 % (11.6-14.6); RBC Distribution Width SD 45.1 fl (35.1-43.9); White Blood Count 8.1 K/mm3 (4.4-11.0)
--- NOTE | 2019-02-03 07:36 | ED.DCSUM_ITS ---
- ER Visit Summary Date of Service: 02/03/19 Chief Complaint: Elevated heart rate and low urine output History of Present Illness: The patient is a [address] Watters. He has a history severe cerebral palsy and is nonverbal. Parents report that yesterday his heart rate began increasing. This morning it was 128. Typically his heart rate is in the 80s. His pulse ox remained 93 to 95% which is his baseline. He has had a temperature of 99.6 degrees. They deny runny nose or cough. No vomiting or diarrhea. No rash. They do report that he has not urinated in the past 9 hours and that this is unusual for him. Physical Examination: Vitals: 100.2, 139/96, 86, 17, 93% on a ventilator. General: Well-nourished and well-developed. Head: Normocephalic atraumatic. Neck: Supple, no lymphadenopathy. No JVD. Nontender. Cardiovascular: Regular rate and rhythm. No murmurs. Respiratory: No respiratory distress. Clear to auscultation bilaterally. Abdominal: Soft, nontender, distended, normal bowel sounds. No guarding, rebound, or peritoneal signs. Back: Nontender. Extremities: Nontender, no edema. Skin: Normal color, no rash. Neurologic: At baseline per parents. Test Results: CBC shows an H&H 12.4 and 38.9, monocytes of 11. Chem-7 shows a creatinine of 0.42. LFTs showed a total protein of 8.7 globulin 5.3, alk phos of 202. Lipase is normal. Coags are normal. Lactic acid is 1.3. Phenobarbital level is 19.7. UA is negative. Clinical Impression(s) from Imaging Studies Chest X-Ray 02/03/19 07:12 IMPRESSION: Hypoventilatory exam. No definite infiltrate. Electronically Signed: Siddharth Benavides MD at 8:06 EST , Service support , Abdomen/Pelvis CT 02/03/19 07:14 IMPRESSION: No obstruction. Chronic and postoperative changes. Electronically Signed: Siddharth Benavides MD at 9:07 EST , Service support , Emergency Department Course and Treatment: Patient had a Augustin catheter placed to measure his urine output and his temperature. Typically he urinates into a diaper. He was given his morning medications of phenobarbital, metoclopramide, pantoprazole, and simethicone through his G-tube. He was given a 1 L bolus of normal saline. P patient had a Augustin catheter placed and immediately had 500 cc of urine out. Following this his heart rate decreased back down to normal and he fell asleep. He is resting comfortably. Treatment Plan: Patient was discussed with Dr. Ellison. He will be discharged with a Augustin catheter in place. Instructed to follow-up in 3 to 5 days for another exam. He will be placed on Flomax. Return to the emergency department for any worsening symptoms. Disposition: To home in improved and stable condition. Impression: 1. Urinary retention. This note was generated with [employer] dictation software. It may contain incorrect words, spelling, and punctuation that were not noted in review of the chart prior to signing ED Disposition - Plan for ED Patient: Instructions: Augustin Catheter, Care, URINARY RETENTION, Male Prescriptions: Tamsulosin HCl [Flomax] 0.4 mg PO DAILY #7 capsule Referrals: Carlin Ellison MD [STAFF PHYSICIAN] - 3-5 Days
[2019-02-03 07:52] LABS: International Normalized Ratio 1.1
[2019-02-03 07:53] LABS: Partial Thromboplast Time 38.8 Seconds (24.1-36.2)
[2019-02-03 07:54] VITALS: BP 99/64; PULSE 87; RESP 18; TEMP 36.7; O2SAT 93
[2019-02-03 07:55] LABS: ALB/GLOB Ratio 0.6 RATIO (0.9-2.4); AST(SGOT) 17 U/L (15-37); Alanine Aminotransfer ALT/SGPT 24 U/L (16-61); Albumin, Serum 3.4 g/dL (3.2-5.0); Alkaline Phosphatase 202 U/L (45-117); Anion Gap 5 (5-15); BUN 13 mg/dL (7-18); Calcium,Total 8.7 mg/dL (8.5-10.1); Chloride 101 mmol/L (98-107); Creatinine, Serum 0.42 mg/dL (0.70-1.30); EST Glomerular Filtration Rate 243 mL/min (>60); Est Glom Filt Rate - Afr Amer 294 mL/min (>60); Globulin 5.3 g/dL (2.2-4.2); Glucose 95 mg/dL (74-106); Lactic Acid 1.3 mmol/L (0.4-1.9); Lipase 382 U/L (73-393); Potassium 3.9 mmol/L (3.5-5.1); Protein, Total 8.7 g/dL (6.4-8.2); Sodium Level 136 mmol/L (136-145)
[2019-02-03 08:07] LABS: Bacteria 0 SEEN /hpf (None Seen); Mucous, Urine 0 SEEN /hpf (<or=2+); Red Blood Cells-Urine 0 SEEN /hpf (0-5); Squamous Epithelial Cells - UA 0 SEEN /hpf (0-5); White Blood Cells 0 SEEN /hpf (0-5)
[2019-02-03] MEDS: Simethicone 40MG/0.6ML Bottle 40 MG GT (08:11)
[2019-02-03] MEDS: Metoclopramide 10 MG/10 ML UDC GT (08:11)
[2019-02-03] MEDS: Phenobarbital 20 MG/5 ML UDC 60 MG GT (08:13)
[2019-02-03 08:15] LABS: Color, Urine Yellow (Yellow); Glucose, Dipstick Normal (Normal); Ketone-Dipstick Negative (Negative); Leukocyte Esterase-Dipstick Negative /ul (Negative); Nitrite-Dipstick Negative (Negative); Occult Blood-Urine Negative /ul (Negative); Protein-Dipstick Negative (Negative); Urine Bilirubin Dipstick Negative (Negative); Urine Clarity Clear (Clear); Urine Urobilinogen Normal (Normal)
[2019-02-03] MEDS: Pantoprazole Sodium 20 MG Tablet PO (08:16)
[2019-02-03 08:31] VITALS: BP 99/64; PULSE 87; RESP 18; TEMP 36.7; O2SAT 93
[2019-02-03 09:00] VITALS: BP 88/64; PULSE 83; RESP 14; TEMP 36.9; O2SAT 95
[2019-02-03 11:05] VITALS: BP 113/83; PULSE 74; RESP 13; TEMP 36.3; O2SAT 97
== END 2019-02-03 11:05 | disposition home or self-care (01) ==
PROVIDERS: Emergency Provider Emergency Medicine; Family Provider Family Medicine; PCP Family Medicine
DX: R33.9 Retention of urine, unspecified (principal); G80.9 Cerebral palsy, unspecified; Z79.899 Other long term (current) drug therapy; Z93.3 Colostomy status
CPT/HCPCS: 36591; 71045; 74176; 80053; 80184; 81001; 83605; 83690; 85025; 85610; 85730; 87040; 96360; 96361; 96374; 96375; 99285; J7030; A4216

== ENCOUNTER → 2019-03-03 12:53 | Outpatient (CLI) | payer BC, MEDICAID, SELFPAY ==
[2019-02-03 06:49] VITALS: BMI 32.5
[2019-03-03 13:16] LABS: Absolute Lymphocyte Count 1.89 X10^3/uL (0.83-4.51); Basophil# 0.01 X10^3/uL; Basophil% 0.2 % (0-1); Eosinophil# 0.44 X10^3/uL; Eosinophils% 9.1 % (0-5); Hematocrit 34.4 % (40-54); Hemoglobin 11.1 g/dL (13.0-16.5); Lymphocyte # 1.89 X10^3/ul (4.0); Mean Corp Hgb Conc 32.3 g/dL (32-36); Mean Corpuscular Hgb 27.8 pg (27.0-32.0); Mean Platelet Vol. 10.7 fl (6.2-12.0); Monocyte# 0.45 X10^3/uL; Monocyte% 9.3 % (0-10); NRBC Flagged by Analyzer 0 % (0-5); Neutrophil # 2.04 X10^3/uL (2.7-7.7); Neutrophil % 42.2 % (47-70); Platelet Count 138 K/mm3 (150-450); RBC Distribution Width CV 14.6 % (11.6-14.6); RBC Distribution Width SD 46.3 fl (35.1-43.9); White Blood Count 4.8 K/mm3 (4.4-11.0)
[2019-03-03 13:56] LABS: Ferritin 58 ng/mL (26-388); Iron 51 ug/dL (65-175); Iron Binding Capacity,Total 244 ug/dL (250-450)
[2019-03-03 14:10] LABS: Anion Gap 5 (5-15); BUN 16 mg/dL (7-18); BUN/Creat Ratio 51.3 RATIO (10-20); Calcium,Total 8.7 mg/dL (8.5-10.1); Chloride 103 mmol/L (98-107); Creatinine, Serum 0.31 mg/dL (0.70-1.30); EST Glomerular Filtration Rate 343 mL/min (>60); Est Glom Filt Rate - Afr Amer 415 mL/min (>60); Glucose 82 mg/dL (74-106); Potassium 3.4 mmol/L (3.5-5.1); Sodium Level 138 mmol/L (136-145)
== END ==
PROVIDERS: Family Provider Family Medicine; PCP Family Medicine; Referring Provider Nurse Practitioner Family; Visit Provider Nurse Practitioner Family
DX: D50.9 Iron deficiency anemia, unspecified (principal); I34.1 Nonrheumatic mitral (valve) prolapse; R60.9 Edema, unspecified
CPT/HCPCS: 80048; 82728; 83540; 83550; 85025

== ENCOUNTER → 2019-03-24 10:36 | Outpatient (CLI) | payer BC, MEDICAID, SELFPAY ==
[2019-03-24 09:14] VITALS: BMI 32.5
[2019-03-24 10:55] LABS: Absolute Lymphocyte Count 1.84 X10^3/uL (0.83-4.51); Absolute Neutrophil Count 2.1 X10^3/uL (2.0-7.7); Basophil# 0.01 X10^3/uL; Basophil% 0.2 % (0-1); Eosinophil# 0.36 X10^3/uL; Eosinophils% 7.5 % (0-5); Hemoglobin 11.1 g/dL (13.0-16.5); Lymphocyte # 1.84 X10^3/ul (4.0); Lymphocyte % 38.4 % (19-41); Mean Corp Hgb Conc 31.7 g/dL (32-36); Mean Corpuscular Hgb 27.1 pg (27.0-32.0); Mean Corpuscular Volume 85.6 fL (80-94); Mean Platelet Vol. 11.1 fl (6.2-12.0); Monocyte# 0.45 X10^3/uL; Monocyte% 9.4 % (0-10); NRBC Flagged by Analyzer 0 % (0-5); Neutrophil # 2.12 X10^3/uL (2.7-7.7); Neutrophil % 44.3 % (47-70); Platelet Count 155 K/mm3 (150-450); RBC Distribution Width CV 14.6 % (11.6-14.6); RBC Distribution Width SD 45.4 fl (35.1-43.9); Red Blood Count 4.09 M/mm3 (4.6-6.2); White Blood Count 4.8 K/mm3 (4.4-11.0)
[2019-03-24 11:13] LABS: Anion Gap 3 (5-15); BUN 14 mg/dL (7-18); BUN/Creat Ratio 46.7 RATIO (10-20); Calcium,Total 8.9 mg/dL (8.5-10.1); Chloride 105 mmol/L (98-107); EST Glomerular Filtration Rate 358 mL/min (>60); Est Glom Filt Rate - Afr Amer 434 mL/min (>60); Glucose 85 mg/dL (74-106); Potassium 3.7 mmol/L (3.5-5.1); Sodium Level 138 mmol/L (136-145)
== END ==
LOC: LAB 10:40 → LABSPEC 10:41
PROVIDERS: PCP Family Medicine; Referring Provider Family Medicine; Visit Provider Nurse Practitioner Family
DX: I34.1 Nonrheumatic mitral (valve) prolapse (principal); D64.9 Anemia, unspecified; R60.9 Edema, unspecified
CPT/HCPCS: 80048; 85025

== ENCOUNTER 2019-04-22 04:44 | Emergency (ER) | payer BC, MEDICAID, SELFPAY ==
[2019-03-24 09:14] VITALS: BMI 32.5
[2019-04-22 04:45] VITALS: PULSE 66; RESP 17; TEMP 36.6; O2SAT 97; BMI 31.1
--- NOTE | 2019-04-22 04:56 | ED.DCSUM_ITS ---
History of Present Illness Chief Complaint: Other, Pain/Inj Narrative: Patient presenting secondary to dislodgment of his Fracisco button feeding tube. Patient has cerebral palsy. Fracisco button was noted to be dislodged this evening. Family denies any other complaints at this time. Past Medical History - Allergies and Home Meds Allergies/Adverse Reactions: Allergies cisapride monohydrate [From Propulsid] Allergy (Verified 04/22/19 04:56) Rash codeine Adverse Reaction (Verified 04/22/19 04:56) hallucinations metronidazole [From Flagyl] Adverse Reaction (Verified 04/22/19 04:56) Rash morphine Adverse Reaction (Verified 04/22/19 04:56) Hallucinations dust Allergy (Uncoded 04/22/19 04:56) Other Primary Care Physician: Timmy Conn MD [Primary Care Provider] - Past Medical History: - - Cerebral palsy Surgical History: noncontributory, - Smoking Status: Never smoker - Family History Maternal Family History: Family History (Last Reviewed 03/24/19 @ 11:39 by Bella Angela) Mother Hypertension Hepatitis C Father Hypertension Atrial fibrillation CAD (coronary artery disease) Family History: Reports: - - Mother with history of hypertension hepatitis C. Paternal Family History: Family History (Last Reviewed 03/24/19 @ 11:39 by Bella Angela) Mother Hypertension Hepatitis C Father Hypertension Atrial fibrillation CAD (coronary artery disease) Family History: Reports: - - Father with history of hypertension, coronary disease and atrial fibrillation. Review of Systems Gastrointestinal: Reports: - - Dislodgment of feeding tube Physical Exam Vital Signs/Narrative: Vital Signs Temp Pulse Resp Pulse Ox 04/22/19 04:45 97.8 F 66 17 97 Inital Vital Signs reviewed: Yes General: Well nourished Head: Normocephalic ENT: Moist mucous membranes Cardiovascular: Regular rate, Regular rhythm Respiratory: No distress Abdomen: - - Colostomy in place with normal drainage. And feeding tube site is pink and does not appear infected. Skin: Normal color Neurological: Alert Diagnostic/Tx/Re-eval - Medical Decision Making Patient presented with dislodgment of feeding tube. I was able to successfully replace this with a new Fracisco button as noted in the procedure note. Patient was discharged in improved condition. Procedures Procedure(s): Patient presented with dislodgment of the feeding tube. A 20 Martiniquais Fracisco button feeding tube was provided by the patient's family. This was lubricated, and the balloon was tested. The feeding tube was able to be replaced through the patient's ostomy site with gentle pressure. 6 cc of tap water were insufflated into the balloon. Patient tolerated this well. ED Disposition - Plan for ED Patient: Disposition: Home or Assisted Living Diagnosis: Feeding tube dysfunction Instructions: Feeding Tube Replacement Referrals: Timmy Conn MD [Primary Care Provider] - As Needed
== END 2019-04-22 05:13 | disposition home or self-care (01) ==
LOC: ED 05:04
PROVIDERS: Emergency Provider Emergency Medicine; PCP Family Medicine
DX: K94.29 Other complications of gastrostomy (principal); G80.9 Cerebral palsy, unspecified; Z79.899 Other long term (current) drug therapy; Z88.1 Allergy status to other antibiotic agents; Z88.5 Allergy status to narcotic agent
CPT/HCPCS: 99282

== ENCOUNTER → 2019-04-24 11:51 | Outpatient (CLI) | payer BC, MEDICAID, SELFPAY ==
[2019-04-22 04:45] VITALS: BMI 31.1
[2019-04-24 13:07] LABS: Anion Gap 7 (5-15); BUN 20 mg/dL (7-18); BUN/Creat Ratio 62.5 RATIO (10-20); Calcium,Total 8.7 mg/dL (8.5-10.1); Chloride 103 mmol/L (98-107); Creatinine, Serum 0.32 mg/dL (0.70-1.30); EST Glomerular Filtration Rate 332 mL/min (>60); Est Glom Filt Rate - Afr Amer 402 mL/min (>60); Glucose 114 mg/dL (74-106); Potassium 3.6 mmol/L (3.5-5.1); Sodium Level 140 mmol/L (136-145)
== END ==
PROVIDERS: PCP Family Medicine; Referring Provider Nurse Practitioner Family; Visit Provider Nurse Practitioner Family
DX: I34.1 Nonrheumatic mitral (valve) prolapse (principal); R60.9 Edema, unspecified
CPT/HCPCS: 80048

== ENCOUNTER 2019-05-09 05:05 | Emergency (ER) | payer BC, MEDICAID, SELFPAY ==
[2019-05-09 05:07] VITALS: BP 91/65; PULSE 61; RESP 15; TEMP 35.3; O2SAT 96; BMI 36.6
--- NOTE | 2019-05-09 05:16 | RAD_ITS ---
STUDY: X-RAY CHEST REASON FOR EXAM: Male, 39 years old. Decreased level of consciousness, hypotension, emesis, cerebral palsy. TECHNIQUE: AP portable chest. COMPARISON: February 03, 2019. FINDINGS: Tracheostomy tube tip in its expected location. Right-sided port with tip overlying right atrium. No pneumothorax. No focal infiltrates or effusions. Lungs are hypoinflated. Normal size heart. Normal mediastinum and rachelle. Normal visualized pulmonary arteries. Normal visualized aortic arch and descending thoracic aorta. Normal visualized thoracic spine. Normal visualized ribs, clavicles, and shoulders. There is no demonstrated abnormality of the visualized soft tissue structures of the upper abdomen. RAD/Chest 1 View (Portable) IMPRESSION: No acute cardiopulmonary disease. Electronically Signed: Victor Manuel Seo MD at 5:54 EDT , Service support ,
--- NOTE | 2019-05-09 05:17 | EKG12_ITS ---
Test Reason : ALT LOC Blood Pressure : / mmHG Vent. Rate : 065 BPM Atrial Rate : 065 BPM P-R Int : 186 ms QRS Dur : 112 ms QT Int : 442 ms P-R-T Axes : 045 -01 006 degrees QTc Int : 459 ms Normal sinus rhythm Incomplete right bundle branch block T wave abnormality, consider anterior ischemia Abnormal ECG Confirmed by RADHA VARGAS, ENMA ([id number]), desk editor ILANA WARNER ([id number]) on 05/15/2019 11:13:56 AM Referred By: HAYDEN Confirmed By:MEHNAZ GARCIA MD
[2019-05-09 05:18] VITALS: BP 91/60; PULSE 65; RESP 10; TEMP 35.6; O2SAT 98
--- NOTE | 2019-05-09 05:18 | ED.VIS.GEN ---
History of Present Illness Chief Complaint: Alt LOC Informant: Family Narrative: Presents by EMS from home. Mom stated he had 2 episodes of emesis this evening. She stated also that his blood pressure was low in the 70s. Normally he runs 90-100 systolic. She stated he was not tachycardic. Patient has cerebral palsy and is nonverbal and paralyzed. They stated that he did not want to open his eyes as he was sleeping this evening when they tried to arouse him. They stated now awake and at his normal baseline mental status. They stated that his trach has not been putting out much mucus. They suction him tonight after he vomited. They stated that he is tolerating his continuous tube feeds. They have not noticed any skin infections. His colostomy is putting out normal output. The patient does not have a Augustin catheter and wears a diaper. He is chronically on a vent with 3 and half liters. He has not had a cough or fevers. No sick contacts. - Past Medical History (1) Cerebral palsy Status: Chronic Comment: Quadriplegic Severe mental retardation Chronic constipation PEG tube (2) Chronic respiratory failure Status: Chronic (3) Edema Status: Chronic (4) Iron deficiency anemia Status: Chronic (5) Nonrheumatic mitral valve prolapse Status: Chronic (6) Hypokalemia Status: Resolved Past Medical History - Allergies and Home Meds Allergies/Adverse Reactions: Allergies cisapride monohydrate [From Propulsid] Allergy (Verified 05/09/19 05:17) Rash codeine Adverse Reaction (Verified 05/09/19 05:17) hallucinations metronidazole [From Flagyl] Adverse Reaction (Verified 05/09/19 05:17) Rash morphine Adverse Reaction (Verified 05/09/19 05:17) Hallucinations dust Allergy (Uncoded 05/09/19 05:17) Other Primary Care Physician: Timmy Severino MD [STAFF PHYSICIAN] - Prior records reviewed: Yes Past Medical History: - - see Problem list Surgical History: - - Baclofen pump, colostomy, G-tube, tracheostomy Lives: With Family Smoking Status: Never smoker Alcohol: None Drugs: None - Family History Maternal Family History: Family History (Last Reviewed 03/24/19 @ 11:39 by Bella Angela) Mother Hypertension Hepatitis C Father Hypertension Atrial fibrillation CAD (coronary artery disease) Family History: Reports: - - Mother with history of hypertension hepatitis C. Paternal Family History: Family History (Last Reviewed 03/24/19 @ 11:39 by Bella Angela) Mother Hypertension Hepatitis C Father Hypertension Atrial fibrillation CAD (coronary artery disease) Family History: Reports: - - Father with history of hypertension, coronary disease and atrial fibrillation. Review of Systems All systems negative except as indicated - Review of systems given by family as patient is nonverbal General: Denies: Chills, Fever, Sweats ENT: Denies: Rhinorrhea, Sore throat Cardiovascular: Denies: Palpitations Respiratory: Denies: Dyspnea, Cough, Dyspnea on exertion Gastrointestinal: Reports: Vomiting. Denies: Nausea, Diarrhea, Melena, Hematochezia Genitourinary: Denies: Hematuria Musculoskeletal: Denies: Swelling Skin: Denies: Rash, Wounds Physical Exam Vital Signs/Narrative: Vital Signs Temp Pulse Resp BP Pulse Ox 05/09/19 05:07 95.6 F L 61 15 91/65 96 General: Well nourished, Well developed, No Acute Distress, - - Cerebral palsy. Nonverbal. Head: Normocephalic, Atraumatic Eyes: Perrl, EOMI ENT: Moist mucous membranes, No rhinorrhea Neck: Supple, Nontender, - - Site is clean dry and intact Cardiovascular: Regular rate, Regular rhythm, No murmurs Respiratory: No distress, CTA bilaterally. Negative for: Chest nontender Abdomen: Soft, Nondistended, Normal bowel sounds, - - G-tube intact without redness. Colostomy putting out normally. Old surgical scar from baclofen pump.. Negative for: Nontender, Guarding Back: Normal Inspection. Negative for: Nontender Extremities: No edema, - - Chronic contractures of the extremities. Negative for: Nontender Skin: Normal color, No rash Neurological: - - Patient has spastic cerebral palsy. He is awake and looking at his parents. He is nonverbal. He has chronic paralysis. Negative for: Alert, Oriented x3, Cranial nerves II-XII grossly intact, Normal Strength, Normal Sensation Psychological: Negative for: Normal affect, Normal Mood Diagnostic/Tx/Re-eval Impressions Chest X-Ray 05/09/19 05:16 IMPRESSION: No acute cardiopulmonary disease. Electronically Signed: Victor Manuel Seo MD at 5:54 EDT , Service support , 05/09/19 05:16 Chest 1 View (Portable) [RAD] Stat Laboratory Results 05/09/19 05/09/19 05/09/19 06:10 06:10 06:20 WBC 4.0 L RBC 3.39 L Hgb 9.5 L Hct 30.1 L MCV 88.8 MCH 28.0 MCHC 31.6 L RDW Std Deviation 48.9 H RDW Coeff of Emilee 15.2 H Plt Count 57 L MPV 11.4 Immature Gran % (Auto) 0.300 Neut % (Auto) 58.6 Lymph % (Auto) 25.3 [place] % (Auto) 12.5 H Eos % (Auto) 3.0 Baso % (Auto) 0.3 Absolute Neuts (auto) 2.3 Absolute Lymphs (auto) 1.01 Nucleated RBC % 0 Sodium 139 Potassium 4.4 Chloride 104 Carbon Dioxide 31.0 Anion Gap 4 L BUN 19 H Creatinine 0.25 L Estim Creat Clear Calc 286.11 Est GFR (MDRD) Af Amer 525 Est GFR (MDRD) Non-Af 434 BUN/Creatinine Ratio 74.8 H Glucose 81 Calcium 8.4 L Total Bilirubin 0.10 L AST 20 ALT 28 Alkaline Phosphatase 183 H Total Protein 7.5 Albumin 2.7 L Globulin 4.8 H Albumin/Globulin Ratio 0.6 L Lipase 362 Urine Color Yellow Urine Clarity Clear Urine pH 8.0 Ur Specific [place] 1.015 Urine Protein 15 H Urine Glucose (UA) Normal Urine Ketones Negative Urine Occult Blood Negative Urine Nitrite Negative Urine Bilirubin Negative Urine Urobilinogen Normal Ur Leukocyte Esterase Negative Urine RBC 0-5 SEEN Urine WBC 0-5 SEEN Ur Squamous Epith Cells 0 SEEN Urine Bacteria 0 SEEN Urine Mucus 0 SEEN - Medical Decision Making Patient's vital signs on arrival have a normal blood pressure for the patient at 91/65. He is not tachycardic. Pulse ox on mechanical ventilator is in the mid 90s. He does not appear toxic. Family is reassured by vital signs in the emergency department. He has had no respiratory symptoms. He was acting normal before bed last night. Lab work obtained. Chest x-ray and EKG obtained.. EKG shows sinus rhythm at a rate of 65 with old T wave inversions in V1 through V4. No acute ischemia. Old incomplete right bundle branch block noted. Chest x-ray shows nothing acute. CBC shows a white count of 4 down from 4.8. Hemoglobin is 9.5 down from 11. He has had anemia in the past. Platelets are down to 57 from 155. He is not on heparin. He has had low platelets in the past as well. Electrolytes are unremarkable. Creatinine shows no abnormality. BUN is mildly elevated which is chronic for the patient. Liver function test showed no acute abnormalities. Lipase is negative. Patient is resting comfortably with vital signs returning to normal throughout his stay here. Mom is comfortable taking him home. Urinalysis via straight cath is negative for infection. At this time I do not feel the patient has an acute emergent cause of his symptoms. Could be related to his cerebral palsy. I feel he can be discharged to follow-up. They will have a repeat CBC as an outpatient ED Disposition - Plan for ED Patient: Disposition: Home or Assisted Living Diagnosis: Hypotension, Pancytopenia, Cerebral palsy Instructions: Altered Loc Referrals: Timmy Severino MD [STAFF PHYSICIAN] -
[2019-05-09 06:21] LABS: Absolute Lymphocyte Count 1.01 X10^3/uL (0.83-4.51); Absolute Neutrophil Count 2.3 X10^3/uL (2.0-7.7); Basophil# 0.01 X10^3/uL; Basophil% 0.3 % (0-1); Eosinophil# 0.12 X10^3/uL; Hematocrit 30.1 % (40-54); Hemoglobin 9.5 g/dL (13.0-16.5); Lymphocyte # 1.01 X10^3/ul (4.0); Lymphocyte % 25.3 % (19-41); Mean Corp Hgb Conc 31.6 g/dL (32-36); Mean Corpuscular Volume 88.8 fL (80-94); Mean Platelet Vol. 11.4 fl (6.2-12.0); Monocyte% 12.5 % (0-10); NRBC Flagged by Analyzer 0 % (0-5); Neutrophil # 2.34 X10^3/uL (2.7-7.7); Neutrophil % 58.6 % (47-70); POSITIVE COUNT YES; Platelet Count 57 K/mm3 (150-450); RBC Distribution Width CV 15.2 % (11.6-14.6); RBC Distribution Width SD 48.9 fl (35.1-43.9); Red Blood Count 3.39 M/mm3 (4.6-6.2)
[2019-05-09 06:22] LABS: Differential Indicated SCAN CRITERIA MET
[2019-05-09 06:23] VITALS: BP 93/69; PULSE 78; O2SAT 99
[2019-05-09 06:27] VITALS: BP 93/69; PULSE 78; RESP 10; TEMP 35.6; O2SAT 99
[2019-05-09 06:27] LABS: Bacteria 0 SEEN /hpf (None Seen); Mucous, Urine 0 SEEN /hpf (<or=2+); Squamous Epithelial Cells - UA 0 SEEN /hpf (0-5)
[2019-05-09] MEDS: Ondansetron 4 MG/2 ML Vial IV (06:27)
[2019-05-09 06:28] LABS: Color, Urine Yellow (Yellow); Glucose, Dipstick Normal (Normal); Ketone-Dipstick Negative (Negative); Leukocyte Esterase-Dipstick Negative /ul (Negative); Nitrite-Dipstick Negative (Negative); Occult Blood-Urine Negative /ul (Negative); Protein-Dipstick 15 mg/dl (Negative); Specific Gravity, Urine 1.015 (1.002-1.030); Urine Bilirubin Dipstick Negative (Negative); Urine Clarity Clear (Clear); Urine Urobilinogen Normal (Normal)
[2019-05-09 06:40] LABS: Red Blood Cells-Urine 0-5 SEEN /hpf (0-5); White Blood Cells 0-5 SEEN /hpf (0-5)
[2019-05-09 06:41] LABS: ALB/GLOB Ratio 0.6 RATIO (0.9-2.4); AST(SGOT) 20 U/L (15-37); Alanine Aminotransfer ALT/SGPT 28 U/L (16-61); Albumin, Serum 2.7 g/dL (3.2-5.0); Alkaline Phosphatase 183 U/L (45-117); Anion Gap 4 (5-15); BUN 19 mg/dL (7-18); BUN/Creat Ratio 74.8 RATIO (10-20); Calcium,Total 8.4 mg/dL (8.5-10.1); Chloride 104 mmol/L (98-107); Creatinine, Serum 0.25 mg/dL (0.70-1.30); EST Glomerular Filtration Rate 434 mL/min (>60); Est Glom Filt Rate - Afr Amer 525 mL/min (>60); Estimated Creatinine Clearance 286.11 ml/min; Globulin 4.8 g/dL (2.2-4.2); Glucose 81 mg/dL (74-106); Lipase 362 U/L (73-393); Potassium 4.4 mmol/L (3.5-5.1); Protein, Total 7.5 g/dL (6.4-8.2); Sodium Level 139 mmol/L (136-145)
--- NOTE | 2019-05-09 06:42 | ED.RN ---
Parents asked if we could give him Gabapentin and Baclofen. Called pharmacy to ask for availability, we do not have those for inpatient pharmacy. Okay with Dr. Rodriguez to give meds. Parents will go home and get meds, they didn't want to wait until he gets home.
[2019-05-09 07:33] VITALS: BP 86/72; PULSE 65; O2SAT 96
== END 2019-05-09 07:51 | disposition home or self-care (01) ==
PROVIDERS: Emergency Provider Emergency Medicine; PCP Family Medicine
DX: I95.9 Hypotension, unspecified (principal); D61.818 Other pancytopenia; G80.0 Spastic quadriplegic cerebral palsy; K59.09 Other constipation; R11.10 Vomiting, unspecified; F72 Severe intellectual disabilities; J96.10 Chronic respiratory failure, unspecified whether with hypoxia or hypercapnia; D50.9 Iron deficiency anemia, unspecified; I34.1 Nonrheumatic mitral (valve) prolapse; Z88.5 Allergy status to narcotic agent; Z88.1 Allergy status to other antibiotic agents; Z93.0 Tracheostomy status; Z93.1 Gastrostomy status; Z93.3 Colostomy status; Z79.899 Other long term (current) drug therapy
CPT/HCPCS: 36591; 71045; 80053; 81001; 83690; 85025; 93005; 96374; 99285; P9612; A4216; J2405

== ENCOUNTER 2019-05-22 09:50 | Outpatient (RCR) | payer BC, MEDICAID, SELFPAY ==
[2018-10-08 05:34] VITALS: BMI 34.0
[2019-05-22 10:12] LABS: Absolute Lymphocyte Count 1.56 X10^3/uL (0.83-4.51); Absolute Neutrophil Count 1.6 X10^3/uL (2.0-7.7); Basophil# 0.01 X10^3/uL; Basophil% 0.3 % (0-1); Eosinophil# 0.16 X10^3/uL; Eosinophils% 4.2 % (0-5); Hematocrit 29.5 % (40-54); Hemoglobin 9.3 g/dL (13.0-16.5); Lymphocyte # 1.56 X10^3/ul (4.0); Lymphocyte % 40.8 % (19-41); Mean Corp Hgb Conc 31.5 g/dL (32-36); Mean Corpuscular Hgb 28.1 pg (27.0-32.0); Mean Corpuscular Volume 89.1 fL (80-94); Mean Platelet Vol. 11.9 fl (6.2-12.0); Monocyte# 0.45 X10^3/uL; Monocyte% 11.8 % (0-10); NRBC Flagged by Analyzer 0 % (0-5); Neutrophil # 1.63 X10^3/uL (2.7-7.7); Neutrophil % 42.6 % (47-70); Platelet Count 101 K/mm3 (150-450); RBC Distribution Width CV 15.9 % (11.6-14.6); RBC Distribution Width SD 50.4 fl (35.1-43.9); Red Blood Count 3.31 M/mm3 (4.6-6.2); White Blood Count 3.8 K/mm3 (4.4-11.0)
[2019-05-22 10:15] LABS: BUN 20 mg/dL (7-18); Creatinine, Serum 0.31 mg/dL (0.70-1.30); Glucose 73 mg/dL (74-106)
[2019-05-22 10:16] LABS: Anion Gap 4 (5-15); BUN/Creat Ratio 64.5 RATIO (10-20); Calcium,Total 8.8 mg/dL (8.5-10.1); Chloride 105 mmol/L (98-107); EST Glomerular Filtration Rate 345 mL/min (>60); Est Glom Filt Rate - Afr Amer 417 mL/min (>60); Potassium 4.2 mmol/L (3.5-5.1); Sodium Level 140 mmol/L (136-145)
== END 2019-05-22 18:00 | disposition home or self-care (01) ==
LOC: LAB 09:50
PROVIDERS: Family Provider Family Medicine; PCP Family Medicine; Referring Provider Internal Medicine Cardiovascular Disease; Visit Provider Internal Medicine Cardiovascular Disease
DX: I34.1 Nonrheumatic mitral (valve) prolapse (principal); R60.9 Edema, unspecified; B34.9 Viral infection, unspecified; R65.10 Systemic inflammatory response syndrome (SIRS) of non-infectious origin without acute organ dysfunction; J96.10 Chronic respiratory failure, unspecified whether with hypoxia or hypercapnia; G80.9 Cerebral palsy, unspecified
CPT/HCPCS: 80048; 85025

== ENCOUNTER 2019-06-03 23:53 | Inpatient (IN) | payer BC, MEDICAID, SELFPAY ==
[2019-06-03 23:54] VITALS: BP 80/45; PULSE 42; RESP 20; TEMP 32.7; O2SAT 96; BMI 36.4
--- NOTE | 2019-06-03 23:59 | RAD_ITS ---
STUDY: X-RAY CHEST REASON FOR EXAM: Male, 39 years old. INCREASED OXYGEN REQUIREMENT TECHNIQUE: Single AP portable view of the chest. COMPARISON: 05/09/2019. FINDINGS: The tracheostomy tube has the tip approximately 2.3 cm above clark. There is a right-sided chest with the tip in the proximal right atrium. There is decreased inspiratory effort with bilateral perihilar hazy density on the left concerning for pneumonia. There is no demonstrated pleural abnormality. Suboptimally seen heart. Normal mediastinum and rachelle. Normal visualized pulmonary arteries. Normal visualized aortic arch and descending thoracic aorta. Normal visualized thoracic spine. Normal visualized ribs, clavicles, and shoulders. There is no demonstrated abnormality of the visualized soft tissue structures of the upper abdomen. RAD/Chest 1 View (Portable) IMPRESSION: Possible left perihilar infiltrate, clinical correlation recommended. Lines and tubes as described. Electronically Signed: May Phillips MD at 1:22 EDT , Service support ,
--- NOTE | 2019-06-03 23:59 | EKG12_ITS ---
Test Reason : DECREASE HR Blood Pressure : / mmHG Vent. Rate : 040 BPM Atrial Rate : 040 BPM P-R Int : 228 ms QRS Dur : 120 ms QT Int : 544 ms P-R-T Axes : 056 -01 011 degrees QTc Int : 443 ms Marked sinus bradycardia with 1st degree A-V block Low voltage QRS Non-specific intra-ventricular conduction delay Nonspecific T wave abnormality Abnormal ECG Confirmed by PATEL VARGAS, RACHELLE ([id number]), makeup editor MICHELLE PERKINS ([id number] on 06/05/2019 8:31:15 AM Referred By: PERLA Confirmed By:RACHELLE SWEENEY MD
[2019-06-04] VITALS (54 sets, daily range): BP systolic 70–180; BP diastolic 45–151; PULSE 39–125; RESP 10–30; TEMP 30.9–37.2; O2SAT 90–99; BMI 36.4; BMI 23.1
--- NOTE | 2019-06-04 00:01 | ED.VIS.GEN ---
History of Present Illness Chief Complaint: General Illness Detail of Chief Complaint: Dependent on total care and on vent nonverbal Informant: Family Onset: Weeks Context: Gradual Onset Timing: Continuous Quality: Decline in wellness, decreased intake, decreased energy and heart rate Location: Cardiac and generalized Current Severity: Moderate Maximum Severity: Moderate Worsened by: Unknown Relieved by: Nothing Associated Symptoms: Unknown Narrative: Patient is a 39-year-old with mild medical problems who is vent dependent and is dependent on parents for total care. He is nonambulatory. He is nonverbal. Mother states she was in contact with Dr. Waite. Because heart rate was in the low 30s he was brought to the emergency department. Parents state he has had decreased activity and and gradual decline. He is not eating as well with increased residuals. He has had increased mushy stools. There is a history of C. difficile per prior records. The stool is not watery. Mother states he has been tested for hypothyroidism and tests were negative. Paramedics informed me that his temperature was 88 degrees tympanic. When parents arrived they informed me that his temperature was 97 degrees axillary. Mother reports decreased p.o. intake, increased gastric residual, increased soft stools and decreased urine output. There is been no documented fever. He is required more oxygen. He is vent dependent status post trach. Mother states she contacted Dr. Maury Waite and since his heart rate was less than 35 recommended evaluation in the emergency department. Prior similar symptoms: No Recent Illness/Hospitalization: No - Past Medical History (1) Cerebral palsy Status: Chronic Comment: Quadriplegic Severe mental retardation Chronic constipation PEG tube (2) Chronic respiratory failure Status: Chronic (3) Edema Status: Chronic (4) Iron deficiency anemia Status: Chronic (5) Nonrheumatic mitral valve prolapse Status: Chronic Past Medical History - Allergies and Home Meds Allergies/Adverse Reactions: Allergies cisapride monohydrate [From Propulsid] Allergy (Verified 06/04/19 00:05) Rash codeine Adverse Reaction (Verified 06/04/19 00:05) hallucinations metronidazole [From Flagyl] Adverse Reaction (Verified 06/04/19 00:05) Rash morphine Adverse Reaction (Verified 06/04/19 00:05) Hallucinations dust Allergy (Uncoded 06/04/19 00:05) Other Primary Care Physician: Timmy Conn MD [Primary Care Provider] - Prior records reviewed: Yes Surgical History: - - Baclofen pump, colostomy, G-tube, tracheostomy Lives: With Family Smoking Status: Never smoker Alcohol: None Drugs: None - Family History Maternal Family History: Family History (Last Reviewed 03/24/19 @ 11:39 by Bella Angela) Mother Hypertension Hepatitis C Father Hypertension Atrial fibrillation CAD (coronary artery disease) Family History: Reports: - - Mother with history of hypertension hepatitis C. Paternal Family History: Family History (Last Reviewed 03/24/19 @ 11:39 by Bella Angela) Mother Hypertension Hepatitis C Father Hypertension Atrial fibrillation CAD (coronary artery disease) Family History: Reports: - - Father with history of hypertension, coronary disease and atrial fibrillation. Review of Systems ROS: Unable to Obtain Physical Exam Inital Vital Signs reviewed: Yes General: Well nourished, Well developed, Obese Head: Normocephalic, Atraumatic Eyes: Perrl, EOMI. Negative for: Pale conjunctiva, Scleral icterus ENT: No rhinorrhea, TM's clear, Dry mucous membranes Neck: Supple, No lymphadenopathy, No JVD Cardiovascular: Regular rhythm, Normal S1, Normal S2, Bradycardia Respiratory: No distress, CTA bilaterally, Chest nontender Abdomen: Soft, Nontender, Nondistended, Normal bowel sounds, - - There is brown stool noted in the colostomy bag. Back: Nontender Extremities: Nontender, Edema - Edema upper and lower extremity is pitting Skin: No rash, No Trauma, Pallor. Negative for: Cyanosis, Diaphoresis, Jaundice Neurological: - - Patient has contractures that are much worse upper extremity.. Negative for: Alert, Oriented x3, Normal Gait Diagnostic/Tx/Re-eval Chest X-Ray - ED: 1 View, Read by ED Physician, - - Inspiratory volume is limited. The volume and penetration is essentially unchanged when compared to x-ray obtained May 09, 2019. There is increased interstitial markings bilaterally which suggest possible pneumonia. Impressions Chest X-Ray 06/03/19 23:59 IMPRESSION: Possible left perihilar infiltrate, clinical correlation recommended. Lines and tubes as described. Electronically Signed: May Phillips MD at 1:22 EDT , Service support , 06/03/19 23:59 Chest 1 View (Portable) [RAD] Stat Laboratory Results 06/04/19 06/04/19 06/04/19 00:12 00:22 00:22 WBC 2.6 L RBC 3.30 L Hgb 9.3 L Hct 29.7 L MCV 90.0 MCH 28.2 MCHC 31.3 L RDW Std Deviation 52.7 H RDW Coeff of Emilee 16.0 H Plt Count 72 L MPV 12.2 H Immature Gran % (Auto) 0.000 Neut % (Auto) 50.6 Lymph % (Auto) 39.5 Cottle % (Auto) 6.8 Eos % (Auto) 2.7 Baso % (Auto) 0.4 Absolute Neuts (auto) 1.3 L Absolute Lymphs (auto) 1.04 Nucleated RBC % 0 Platelet Estimate MOD DEC Plt Morphology Comment LARGE RBC Morphology N CHROM Anisocytosis 1+ Macrocytosis RARE Sodium Potassium Chloride Carbon Dioxide Anion Gap BUN Creatinine Estim Creat Clear Calc Est GFR (MDRD) Af Amer Est GFR (MDRD) Non-Af BUN/Creatinine Ratio Glucose Lactic Acid Calcium Total Bilirubin AST ALT Alkaline Phosphatase Total Protein Albumin Globulin Albumin/Globulin Ratio Lipase TSH 2.41 Urine Color Urine Clarity Urine pH Ur Specific Pindall Urine Protein Urine Glucose (UA) Urine Ketones Urine Occult Blood Urine Nitrite Urine Bilirubin Urine Urobilinogen Ur Leukocyte Esterase Urine RBC Urine WBC Ur Squamous Epith Cells Urine Bacteria Hyaline Casts Urine Mucus POC Glucose 132 H 06/04/19 06/04/19 06/04/19 00:22 00:22 00:22 WBC RBC Hgb Hct MCV MCH MCHC RDW Std Deviation RDW Coeff of Emilee Plt Count MPV Immature Gran % (Auto) Neut % (Auto) Lymph % (Auto) Cottle % (Auto) Eos % (Auto) Baso % (Auto) Absolute Neuts (auto) Absolute Lymphs (auto) Nucleated RBC % Platelet Estimate Plt Morphology Comment RBC Morphology Anisocytosis Macrocytosis Sodium 139 Potassium 3.7 Chloride 105 Carbon Dioxide 30.0 Anion Gap 4 L BUN 18 Creatinine 0.30 L Estim Creat Clear Calc 377.19 Est GFR (MDRD) Af Amer 436 Est GFR (MDRD) Non-Af 361 BUN/Creatinine Ratio 60.4 H Glucose 129 H Lactic Acid 1.5 Calcium 8.9 Total Bilirubin 0.10 L AST 24 ALT 29 Alkaline Phosphatase 184 H Total Protein 7.8 Albumin 2.9 L Globulin 4.9 H Albumin/Globulin Ratio 0.6 L Lipase 336 TSH Urine Color Urine Clarity Urine pH Ur Specific Pindall Urine Protein Urine Glucose (UA) Urine Ketones Urine Occult Blood Urine Nitrite Urine Bilirubin Urine Urobilinogen Ur Leukocyte Esterase Urine RBC Urine WBC Ur Squamous Epith Cells Urine Bacteria Hyaline Casts Urine Mucus POC Glucose 06/04/19 00:41 WBC RBC Hgb Hct MCV MCH MCHC RDW Std Deviation RDW Coeff of Emilee Plt Count MPV Immature Gran % (Auto) Neut % (Auto) Lymph % (Auto) Cottle % (Auto) Eos % (Auto) Baso % (Auto) Absolute Neuts (auto) Absolute Lymphs (auto) Nucleated RBC % Platelet Estimate Plt Morphology Comment RBC Morphology Anisocytosis Macrocytosis Sodium Potassium Chloride Carbon Dioxide Anion Gap BUN Creatinine Estim Creat Clear Calc Est GFR (MDRD) Af Amer Est GFR (MDRD) Non-Af BUN/Creatinine Ratio Glucose Lactic Acid Calcium Total Bilirubin AST ALT Alkaline Phosphatase Total Protein Albumin Globulin Albumin/Globulin Ratio Lipase TSH Urine Color Yellow Urine Clarity Sl. Cloudy Urine pH 5.0 Ur Specific Pindall 1.025 Urine Protein 30 H Urine Glucose (UA) Normal Urine Ketones 5 H Urine Occult Blood 10 H Urine Nitrite Negative Urine Bilirubin Negative Urine Urobilinogen Normal Ur Leukocyte Esterase Negative Urine RBC 0-5 SEEN Urine WBC 0-5 SEEN Ur Squamous Epith Cells 0 SEEN Urine Bacteria 0 SEEN Hyaline Casts 25-50 SEEN Urine Mucus 0 SEEN POC Glucose - Rhythm Strip Rate: 37 Ectopy: None - EKG Initial EKG Interpretation: Sinus Bradycardia - Circular rate is 40 with a first-degree AV block. WA interval is 228 ms. QRS duration 120 ms and represents a nonspecific intraventricular conduction delay. QT is 544 ms with a QTC of 443 ms. There is nonspecific ST T wave changes noted. Crowley is normal. - Medical Decision Making With increased oxygen requirement prior history of pneumonia will obtain chest x-ray to evaluate for pneumonia. Because parents report decreased activity infectious metabolic work-up was undertaken. Straight cath was ordered. Because of the reported temperature of 88 degrees TSH was obtained. I was informed at 0031 that he had a systolic pressure of 80. Review of prior vital signs dating back to February his systolic varies between 91?84. Because parents report decreased output and decreased intake will administer 500 cc bolus and reassess. I was also informed that his temperature is 91 ?F. A temperature Augustin was placed to assess for accurate temperature. This raises possibility for sepsis as well. Since TSH is unremarkable cortisol level was obtained to rule out adrenal insufficiency which is a known cause of secondary hypothermia. Malnourishment is another cause. Based on patient's labs he may have mild malnourishment. Will review patient's meds to determine if he is on any antianxiety lytics, antidepressants or anti-psychotic meds. Other causes that may interfere with thermoregulation include neoplasm, multiple sclerosis and Parkinson's disease miscellaneous causes include shock, infection, pancreatitis, uremia vascular insufficiency and cardiopulmonary disease. Suspect his bradycardia is due to the hypothermia patient's core temperature is upper 80s. If patient does not respond to 30 cc/kg bolus will initiate Levophed. Patient initially received a 500 cc bolus. He is now receiving a 2000 cc bolus which will be greater than the 30 cc/kg bolus required for severe sepsis. Respiratory panel was ordered. If this is negative may need to consider COVID testing. - Critical Care Time Critical care time (excluding procedures): 30-74 minutes - This was also included time for history from paramedics, parents and review of prior records. Time taken to create document, Discussing w/Patient &/or Family/Technical Designer - Parents have been made aware of findings and concerns. They understand their son will be admitted to the intensive care unit, Discussing w/Consultants, Arranging Admission or Transfer ED Disposition - Plan for ED Patient: Disposition: Acute Care Hospital [facility] Diagnosis: Severe sepsis, Pneumonia involving left lung, Hypothermia due to non-environmental cause, Sinus bradycardia by electrocardiogram, Acute and chronic respiratory failure with hypoxia, Anemia, Cerebral palsy, Edema, Hypotension Referrals: Timmy Conn MD [Primary Care Provider] -
[2019-06-04 00:35] LABS: Bedside Glucose 132 mg/dL (70-110)
[2019-06-04 00:44] LABS: Absolute Lymphocyte Count 1.04 X10^3/uL (0.83-4.51); Absolute Neutrophil Count 1.3 X10^3/uL (2.0-7.7); Basophil# 0.01 X10^3/uL; Basophil% 0.4 % (0-1); Eosinophil# 0.07 X10^3/uL; Eosinophils% 2.7 % (0-5); Hematocrit 29.7 % (40-54); Hemoglobin 9.3 g/dL (13.0-16.5); Lymphocyte # 1.04 X10^3/ul (4.0); Lymphocyte % 39.5 % (19-41); Mean Corp Hgb Conc 31.3 g/dL (32-36); Mean Corpuscular Hgb 28.2 pg (27.0-32.0); Mean Platelet Vol. 12.2 fl (6.2-12.0); Monocyte# 0.18 X10^3/uL; Monocyte% 6.8 % (0-10); NRBC Flagged by Analyzer 0 % (0-5); Neutrophil # 1.33 X10^3/uL (2.7-7.7); Neutrophil % 50.6 % (47-70); POSITIVE COUNT YES; Platelet Count 72 K/mm3 (150-450); RBC Distribution Width SD 52.7 fl (35.1-43.9); White Blood Count 2.6 K/mm3 (4.4-11.0)
[2019-06-04 00:46] LABS: Differential Indicated SCAN CRITERIA MET
[2019-06-04 00:49] LABS: Bacteria 0 SEEN /hpf (None Seen); Color, Urine Yellow (Yellow); Glucose, Dipstick Normal (Normal); Ketone-Dipstick 5 mg/dl (Negative); Leukocyte Esterase-Dipstick Negative /ul (Negative); Mucous, Urine 0 SEEN /hpf (<or=2+); Nitrite-Dipstick Negative (Negative); Occult Blood-Urine 10 /ul (Negative); Protein-Dipstick 30 mg/dl (Negative); Specific Gravity, Urine 1.025 (1.002-1.030); Urine Bilirubin Dipstick Negative (Negative); Urine Clarity Sl. Cloudy (Clear); Urine Urobilinogen Normal (Normal)
[2019-06-04 00:54] LABS: ALB/GLOB Ratio 0.6 RATIO (0.9-2.4); AST(SGOT) 24 U/L (15-37); Alanine Aminotransfer ALT/SGPT 29 U/L (16-61); Albumin, Serum 2.9 g/dL (3.2-5.0); Alkaline Phosphatase 184 U/L (45-117); Anion Gap 4 (5-15); BUN 18 mg/dL (7-18); BUN/Creat Ratio 60.4 RATIO (10-20); Calcium,Total 8.9 mg/dL (8.5-10.1); Chloride 105 mmol/L (98-107); EST Glomerular Filtration Rate 361 mL/min (>60); Est Glom Filt Rate - Afr Amer 436 mL/min (>60); Estimated Creatinine Clearance 377.19 ml/min; Globulin 4.9 g/dL (2.2-4.2); Glucose 129 mg/dL (74-106); Lactic Acid 1.5 mmol/L (0.4-1.9); Potassium 3.7 mmol/L (3.5-5.1); Protein, Total 7.8 g/dL (6.4-8.2); Sodium Level 139 mmol/L (136-145)
[2019-06-04 00:55] LABS: Thyroid Stim Hormone (TSH) 2.41 uIU/mL (0.358-3.74)
[2019-06-04 00:58] LABS: Hyaline Cast 25-50 SEEN /lpf (0-5); Red Blood Cells-Urine 0-5 SEEN /hpf (0-5); Squamous Epithelial Cells - UA 0 SEEN /hpf (0-5); White Blood Cells 0-5 SEEN /hpf (0-5)
[2019-06-04 01:25] LABS: Anisocytosis 1+; Lipase 336 U/L (73-393); Platelet Estimate MOD DEC (ADEQ); Platelet Morphology LARGE; Red Cell Morphology N CHROM NORMAL (NORM C&C)
[2019-06-04 01:26] LABS: Macrocytosis RARE
[2019-06-04] MEDS: 0.9% Normal Saline 1,000 ML 999 ML IV ×2 (01:33→02:42)
[2019-06-04] MEDS: Ceftriaxone 1 GM/50 ML BAG IV (01:41)
--- NOTE | 2019-06-04 02:32 | PCM.HP.STD ---
Problem List (1) Septic shock Status: Acute (2) Seizure disorder Status: Acute (3) Pneumonia involving left lung Status: Acute Qualifiers: Pneumonia type: due to unspecified organism Lung location: unspecified part of lung Qualified Code(s): J18.9 - Pneumonia, unspecified organism (4) Hypothermia due to non-environmental cause Status: Acute (5) Sinus bradycardia by electrocardiogram Status: Acute (6) Acute and chronic respiratory failure with hypoxia Status: Acute (7) Anemia Status: Chronic Qualifiers: Anemia type: unspecified type Qualified Code(s): D64.9 - Anemia, unspecified (8) Iron deficiency anemia Status: Chronic Qualifiers: Iron deficiency anemia type: unspecified iron deficiency Qualified Code(s): D50.9 - Iron deficiency anemia, unspecified (9) Cerebral palsy Status: Chronic Qualifiers: Cerebral palsy type: spastic quadriplegic Qualified Code(s): G80.0 - Spastic quadriplegic cerebral palsy Comment: Quadriplegic Severe mental retardation Chronic constipation PEG tube History of Present Illness Date of Admission: 06/04/19 Chief Complaint: Increased oxygen needs, decreased activity, bradycardia The patient is a 39 y/o M w/ PMHx: Chronic anemia (Baseline Hgb 10), Chronic Hypoxic and Hypercarbic Respiratory Failure on Chronic Ventilation following w/ Dr. Monsalve, Cerebral Palsy with quadreplegia w/ hx baclofen pump, colostomy, chronic catheter, frequent difficulties with aspiration, G-J tube in place, Seizure disorder who presents to the [facility] ED on 06/04/19 with history of 2 weeks of progressively worsening lethargy, decreased activity, increased residuals, mushy increased stool output with no specific fever or chills with significant bradycardia x 48 hours, normally tachycardic and increased oxygen needs, normally using 2L via trach but increased up to 6L NC. Work-up in the ED included axillary T 91 with a core temp placed noted to be 87.9, heart rate 39-42, BP 72/53, respiratory rate 20 with 96% on 5 L with trach collar, CBC with WBC 2.6, hemoglobin 9.3, platelets 72 with ANC 1.3, CMP with BUN/creatinine 18/0.30, glucose 129, lactic acid 1.5, total bilirubin 0.10, alk phos 194, TSH 2.41, urinalysis with elevated specific gravity 1.025, protein 30, ketones 5, occult blood 10 otherwise no obvious evidence of UTI, culture x2 pending per ED, chest x-ray with increased interstitial markings bilaterally. In the ED patient ministered normal saline as well as azithromycin and Rocephin. Past Medical History Past Medical History (Chronic Problems): Chronic Problems (Last Reviewed 03/24/19 @ 11:39 by Bella Angela) Anemia (Chronic) Nonrheumatic mitral valve prolapse (Chronic) Iron deficiency anemia (Chronic) Chronic respiratory failure (Chronic) Cerebral palsy (Chronic) Quadriplegic Severe mental retardation Chronic constipation PEG tube Edema (Chronic) Medical History: Medical History (Last Reviewed 03/24/19 @ 11:39 by Bella Angela) Nonrheumatic mitral valve prolapse (Chronic) I34.1 Iron deficiency anemia (Chronic) D50.9 Hypokalemia (Resolved) E87.6 Chronic respiratory failure (Chronic) J96.10 Cerebral palsy (Chronic) G80.9 Quadriplegic Severe mental retardation Chronic constipation PEG tube Edema (Chronic) R60.9 Aspiration pneumonia J69.0 Debility R53.81 History of seizure disorder Z86.69 Obesity E66.9 Redundant colon Q43.[address] Z93.0 SIRS (systemic inflammatory response syndrome) R65.10 Allergies cisapride monohydrate [From Propulsid] Allergy (Verified 06/04/19 00:05) Rash codeine Adverse Reaction (Verified 06/04/19 00:05) hallucinations metronidazole [From Flagyl] Adverse Reaction (Verified 06/04/19 00:05) Rash morphine Adverse Reaction (Verified 06/04/19 00:05) Hallucinations dust Allergy (Uncoded 06/04/19 00:05) Other Home Medications: Ambulatory Orders Medication Instructions Recorded Simethicone 40MG/0.6ML [Mylicon] 40 mg GT TID 11/09/13 Pantoprazole Sodium [Protonix] 20 ml GT BID 08/09/14 Phenobarbital 60 mg GT BID 02/19/17 Cetirizine HCl [Zyrtec] 10 ml GT DAILY 02/04/18 Lactobacillus Acidophilus 1 cap GT DAILY 02/04/18 [Acidophilus] Gabapentin 9 ml GT 4X/DAY 07/14/18 metoclopramide HCl 5 mg/5 mL oral 10 mg GT TID ml 09/16/18 solution Lorazepam [Ativan] 1 mg GT Q8 PRN 10/08/18 Cholecalciferol (Vitamin D3) 5 ml GT DAILY 12/25/18 [Vitamin D3] Cough Assist 1 dose .ROUTE .MEDSUPPLY 12/25/18 Ferrous Sulfate 5 ml GT DAILY 12/25/18 Furosemide 40 mg GT DAILY PRN 12/25/18 Potassium Chloride 1.5 ml GT DAILY PRN 12/25/18 oxygen concentrator 1 dose .ROUTE .MEDSUPPLY 12/25/18 Ascorbic Acid [Vitamin C] 500 mg PO DAILY #150 mls 12/27/18 doxazosin 2 mg tablet 2 mg PO DAILY tab 03/24/19 Baclofen [Ozobax] 4 ml GT 4X/DAY 05/09/19 Lactose-Reduced Food/Fiber [Jevity 1,500 ml PO DAILY 05/09/19 1.2 [place] Liquid] Ondansetron HCl [Zofran] 5 ml PO DAILY PRN 05/09/19 Polyethylene Glycol 3350 [Miralax] 17 gm GT TID 05/09/19 Surgical History: Surgical History (Last Reviewed 03/24/19 @ 11:39 by Bella Angela) Colostomy in place Z93.3 Heel cord lengthening bilaterally History of colostomy History of gastrostomy tube placement History of open reduction and internal fixation (ORIF) procedure Z98.890 left hip History of soft tissue release Bilateral hips and knees Status post insertion of intrathecal baclofen pump Z96.89 status post removal in March 2018. Surgical History: - - Baclofen pump, colostomy, G-tube, tracheostomy Psychiatric History: No pertinent psych hx Lives: With Family Smoking Status: Never smoker Tobacco Use: Non-smoker Alcohol: None Drugs: None - *Family History Maternal Family History: Family History (Last Reviewed 03/24/19 @ 11:39 by Bella Angela) Mother Hypertension Hepatitis C Father Hypertension Atrial fibrillation CAD (coronary artery disease) History Items: - - Mother with history of hypertension hepatitis C. Paternal Family History: Family History (Last Reviewed 03/24/19 @ 11:39 by Bella Angela) Mother Hypertension Hepatitis C Father Hypertension Atrial fibrillation CAD (coronary artery disease) History Items: - - Father with history of hypertension, coronary disease and atrial fibrillation. Review of Systems Constitutional: Denies: Chills, Fever, Weight Change HEENT: Denies: Nasal Congestion, Sinus Congestion Cardiovascular: Denies: Palpitations Respiratory: Reports: - - Increased oxygenation needs. Gastrointestinal: Reports: Diarrhea - Mushy stool output from ostomy.. Denies: Abdominal Pain, Vomiting Genitourinary: Denies: Dysuria Skin: Denies: Rash, Wounds Neurological: Reports: Focal weakness, Seizures, - - Non-verbal, CP Hematologic/ Lymphatic: Reports: Anemia Comment: Non-verbal patient, information given per parents/caregivers. VTE Information - Inpt Only VTE Present on Admission: No VTE Mechan Device Prophylaxis: SCD's VTE Pharm Prophylaxis ordered?: Yes Patient Problems: Active and Suspected Problems (Last Reviewed 03/24/19 @ 11:39 by Bella Angela) Severe sepsis (Acute) Pneumonia involving left lung (Acute) Hypothermia due to non-environmental cause (Acute) Sinus bradycardia by electrocardiogram (Acute) Acute and chronic respiratory failure with hypoxia (Acute) Hypotension (Acute) Septic shock (Acute) Seizure disorder (Acute) Subjective: Laying in the ED bed, home vent in place, nonverbal, severe MRDD status, no acute distress apparent but remains hypotensive, completed sepsis bolus protocol, remains HR 40s. Objective: Physical Examination: General: awakens to stimuli, not markedly alert, nonverbal, unable to answer any orientation questions, severe MRDD with cerebral palsy with quadriplegia, no distress apparent but remains hypotensive, bradycardic and hypothermic. Skin: normal color, turgor, no icterus, cyanosis. HEENT: AT/NC, nable to ascertain EOM, PERRLA, no carotid bruits or JVD noted, tracheostomy in place with vent currently in place to home device, protruded tongue, dry. Lungs: Diminished breath sounds, > bases, trach in place, ventilatory in place, no wheezing, rhonchi or rales noted. Heart: Bradycardic with regular rhythm; no gallop, rub audible. Abdomen: soft, NTTP/no grimace with palpation noted, chronic distended appearance, LLQ w/ ostomy, stool output noted, hyperactive HS, difficult to assess HSM secondary to habitus. Extremities: no cyanosis, chronic BL LE pedal and hand mild edema, non-pitting, quadriplegic status. Neurological: awakens to stimuli, not markedly alert, nonverbal, unable to answer any orientation questions, severe MRDD with cerebral palsy with quadriplegia, no distress apparent but remains hypotensive, bradycardic and hypothermic; cognitive function decreased from baseline intact per family although severely decreased baseline; pupils equally reactive to light and accomodation; cranial nerves difficult to assess given MRDD quadriplegic status but making occasional facial grimace with examination, strength severely globally decreased. Psychiatric: affect appears lethargic, more flat than normal (prior visits), no acute evidence of depressive or anxiety feelings. - Physical Exam Vitals/I&O's: Vital Signs Temp Pulse Resp BP Pulse Ox 87.9 F L 39 L 10 L 72/53 L 93 06/04/19 01:03 06/04/19 01:03 06/04/19 01:03 06/04/19 01:03 06/04/19 01:03 Oxygen Flow Rate (L/min) 6 Oxygen Delivery Method Trach Collar Weight: 174 lb 6.17 oz Body Mass Index (BMI) 36.4 Finger Stick Blood Glucose 132 Laboratory Results 06/04/19 00:12: POC Glucose 132 H 06/04/19 00:22: TSH 2.41 06/04/19 00:22: WBC 2.6 L, RBC 3.30 L, Hgb 9.3 L, Hct 29.7 L, MCV 90.0, MCH 28.2, MCHC 31.3 L, RDW Std Deviation 52.7 H, RDW Coeff of [place] 16.0 H, Plt Count 72 L, MPV 12.2 H, Immature Gran % (Auto) 0.000, Neut % (Auto) 50.6, Lymph % (Auto) 39.5, [place] % (Auto) 6.8, Eos % (Auto) 2.7, Baso % (Auto) 0.4, Absolute Neuts (auto) 1.3 L, Absolute Lymphs (auto) 1.04, Nucleated RBC % 0, Platelet Estimate MOD DEC, Plt Morphology Comment LARGE, RBC Morphology N CHROM, Anisocytosis 1+, Macrocytosis RARE 06/04/19 00:22: Sodium 139, Potassium 3.7, Chloride 105, Carbon Dioxide 30.0, Anion Gap 4 L, BUN 18, Creatinine 0.30 L, Estim Creat Clear Calc 377.19, Est GFR (MDRD) Af Amer 436, Est GFR (MDRD) Non-Af 361, BUN/Creatinine Ratio 60.4 H, Glucose 129 H, Calcium 8.9, Total Bilirubin 0.10 L, AST 24, ALT 29, Alkaline Phosphatase 184 H, Total Protein 7.8, Albumin 2.9 L, Globulin 4.9 H, Albumin/Globulin Ratio 0.6 L 06/04/19 00:22: Lactic Acid 1.5 06/04/19 00:22: Cortisol Pending 06/04/19 00:22: Lipase 336 06/04/19 00:41: Urine Color Yellow, Urine Clarity Sl. Cloudy, Urine pH 5.0, Ur Specific [place] 1.025, Urine Protein 30 H, Urine Glucose (UA) Normal, Urine Ketones 5 H, Urine Occult Blood 10 H, Urine Nitrite Negative, Urine Bilirubin Negative, Urine Urobilinogen Normal, Ur Leukocyte Esterase Negative, Urine RBC 0-5 SEEN, Urine WBC 0-5 SEEN, Ur Squamous Epith Cells 0 SEEN, Urine Bacteria 0 SEEN, Hyaline Casts 25-50 SEEN, Urine Mucus 0 SEEN Current Medications Ceftriaxone Sodium (Rocephin) 1 gm in 50 mls @ 100 mls/hr IV X1 ONE Stop: 06/04/19 01:41 Azithromycin 500 mg/ Dextrose 255 mls @ 250 mls/hr IV X1 ONE Stop: 06/04/19 02:13 Sodium Chloride () 1,000 mls @ 999 mls/hr IV .Q1H1M [facility]; Protocol Stop: 06/04/19 03:25 Assessment/Plan All Active Problems (Last Reviewed 03/24/19 @ 11:39 by Bella Angela) Severe sepsis (Acute) Pneumonia involving left lung (Acute) Hypothermia due to non-environmental cause (Acute) Sinus bradycardia by electrocardiogram (Acute) Acute and chronic respiratory failure with hypoxia (Acute) Hypotension (Acute) Septic shock (Acute) Seizure disorder (Acute) Hypokalemia (Resolved) Acute respiratory failure with hypoxia (Resolved) C. difficile colitis (Resolved) C. difficile colitis (Resolved) GJ malfunction (Resolved) Pneumonia (Resolved) Preop cardiovascular exam (Resolved) Sepsis (Resolved) Severe sepsis (Ruled-out) Viral syndrome (Ruled-out) The patient is a 39 y/o M w/ PMHx: Chronic anemia, Chronic Hypoxic and Hypercarbic Respiratory Failure on Chronic Ventilation following w/ Dr. Bello, Cerebral Palsy with quadreplegia w/ hx baclofen pump, colostomy, chronic catheter, frequent difficulties with aspiration, G-J tube in place, Seizure disorder who presents to the [facility] ED on 06/04/19 with history of 2 weeks of progressively worsening lethargy, decreased activity, increased residuals, mushy increased stool output with no specific fever or chills with significant bradycardia x 48 hours, normally tachycardic and increased oxygen needs, normally using 2L via trach but increased up to 6L NC. 1. Acute Septic Shock secondary to Acute on Chronic Hypoxic and Hypercarbic Respiratory Failure on Chronic Ventilation w/ Tracheostomy secondary to suspected Pneumonia: Patient upon presentation with increased oxygen needs, hypothermic, bradycardic. Will admit patient to the ICU, given ongoing MAP <65 following sepsis hydration will place on NEP, will maintain on COVID precautions given planned testing, transition to vent which was discussed with Respiratory, tracheostomy care per protocol, continue ATC duoneb, PRN albuterol, maintain on IV Zosyn and Vancomycin w/ pending MRSA screen, HOB, IS parameters w/ pending sputum cultures and urine antigens as well as respiratory viral panel, will obtain procalcitonin, CRP, CPK, Ferritin, LDH, continue supportive care, will request COVID-19 testing, maintain on aspiration precautions. C-diff also requested. Bld cx x 2 obtained in the ED. 2. Bradycardia, Suspected Multifactorial: Ongoing, possibly multifactorial given hypothermia, hypoxia, sepsis, following with Dr. Waite, TSH normal, pending cortisol level per ED physician, possibly worsened secondary to acute presentation with possible #1 as noted, continue treatment of #1, PRN atropine, if necessary will consult with Cardiology. 3. Spastic quadriplegia with cerebral palsy: Colostomy in place, hold GJ tube feeds as notable history of aspiration, barrier cream as needed, wound RN for ostomy care, aspiration precautions, continue home baclofen regimen. 4. Seizure disorder: We will continue home phenobarbital, gabapentin. 5. Chronic anemia, normocytic: Admission hemoglobin 9.3, baseline 10, continue to trend. 6. GERD: We will maintain on home Protonix regimen. 7. DVT prophylaxis: SCDs, Lovenox. 8. CODE status: Patient parents present, patient will remain FULL Code. Critical Care Time: 60 minutes, time from 1:30 am-2:30 am, were spent addressing patients acute presentation, septic shock, pneumonia, respiratory failure, bradycardia, hypothermia, review of all data in collaboration with care team in addition to discussion with family. Inpatient E&M: [id number] Init Hosp L3
[2019-06-04 03:00] LABS: Ferritin 81 ng/mL (26-388); LDH 202 U/L (87-241)
[2019-06-04 03:08] LABS: Procalcitonin 0.04 ng/mL (0.00-0.09)
[2019-06-04] MEDS: 0.9% Normal Saline 1,000 ML 150 ML IV ×4 (03:30→22:33)
[2019-06-04 03:55] LABS: Absolute Lymphocyte Count 0.78 X10^3/uL (0.83-4.51); Absolute Neutrophil Count 0.8 X10^3/uL (2.0-7.7); Eosinophil# 0.07 X10^3/uL; Eosinophils% 3.8 % (0-5); Hematocrit 26.4 % (40-54); Hemoglobin 8.1 g/dL (13.0-16.5); Lymphocyte # 0.78 X10^3/ul (4.0); Lymphocyte % 41.9 % (19-41); Mean Corp Hgb Conc 30.7 g/dL (32-36); Mean Corpuscular Hgb 28.1 pg (27.0-32.0); Mean Corpuscular Volume 91.7 fL (80-94); Mean Platelet Vol. 11.7 fl (6.2-12.0); Monocyte# 0.19 X10^3/uL; Monocyte% 10.2 % (0-10); NRBC Flagged by Analyzer 0 % (0-5); Neutrophil # 0.82 X10^3/uL (2.7-7.7); Neutrophil % 44.1 % (47-70); POSITIVE COUNT YES; POSITIVE DIFFERENTIAL YES; RBC Distribution Width CV 16.1 % (11.6-14.6); RBC Distribution Width SD 53.2 fl (35.1-43.9); Red Blood Count 2.88 M/mm3 (4.6-6.2)
[2019-06-04 04:33] LABS: Differential Indicated SCAN CRITERIA MET; Platelet Count 50 K/mm3 (150-450); White Blood Count 1.9 K/mm3 (4.4-11.0)
--- NOTE | 2019-06-04 04:58 | PCM.RX.CS ---
Consult Pharmacy has been consulted to manage selected antiobiotic: Vancomycin Type of Consult: New start Microbiology: Microbiology 06/04/19 01:35 Mucosa - Other Respiratory Panel (PCR) - Final 06/04/19 04:00 Urine Catheter - [place] Streptococcus pneumoniae Antigen (M - Final 06/04/19 04:00 Urine Catheter - [place] Legionella Antigen - Final Weight used for dosin kg Goal Trough: 15-20 mcg/mL Pharmacy Plan for Drug Dosing: Patient experienced renal failure in the past with 1250mg vanc IV q12h. Loaded with 2000mg IV x1, continue with 1000mg IV q12h based on past level. Trough prior to 4th dose. Pharmacy Service will continue to monitor and adjust dosing as required. Follow-Up Labs: Trough Vancomycin - 06/04 @ 1930
[2019-06-04 05:18] LABS: ALB/GLOB Ratio 0.6 RATIO (0.9-2.4); AST(SGOT) 21 U/L (15-37); Alanine Aminotransfer ALT/SGPT 24 U/L (16-61); Albumin, Serum 2.4 g/dL (3.2-5.0); Alkaline Phosphatase 158 U/L (45-117); Anion Gap 4 (5-15); BUN 14 mg/dL (7-18); BUN/Creat Ratio 64.2 RATIO (10-20); Calcium,Total 7.3 mg/dL (8.5-10.1); Chloride 109 mmol/L (98-107); Creatinine, Serum 0.22 mg/dL (0.70-1.30); EST Glomerular Filtration Rate 517 mL/min (>60); Est Glom Filt Rate - Afr Amer 626 mL/min (>60); Globulin 4.1 g/dL (2.2-4.2); Glucose 142 mg/dL (74-106); Potassium 3.7 mmol/L (3.5-5.1); Protein, Total 6.5 g/dL (6.4-8.2); Sodium Level 141 mmol/L (136-145); Total Bilirubin < 0.10 mg/dL (0.20-1.00)
[2019-06-04 05:27] LABS: Anisocytosis 1+; Hypochromasia 1+; Platelet Estimate MKD DEC (ADEQ); Polychromasia RARE
--- NOTE | 2019-06-04 06:10 | CON.PCM_ITS ---
Reason for Consult Date of Consultation: 06/04/19 Reason for Consultation: Acute on Chronic respiratory failure History of Present Illness: The patient is a 39-year-old male, with a history as outlined below, who presented to the emergency department on June 03 with a constellation of symptoms including generalized malaise, failure to thrive and bradycardia. The patient has a history of cerebral palsy, spastic quadriplegia and chronic respiratory failure requiring home ventilator utilization. The patient is followed by Dr. Monsalve in the outpatient pulmonary clinic. He is on SIMV mode on his noninvasive ventilator at baseline throughout the night. During the day, he typically requires 2 to 3 L/min of supplemental oxygen. On presentation to the emergency department, the patient was noted to be hypothermic with an axillary temperature of 91 ?F. The patient was also noted bradycardic with a heart rate of 42 with a blood pressure of 80/45 mmHg. Initial laboratory evaluation revealed evidence of pancytopenia. Chemistry profile was largely unremarkable. Initial lactate was noted to be 1.5. Procalcitonin level was normal. TSH was within normal limits. Random cortisol level was noted to be 20.3. UA was unremarkable. Chest x-ray revealed a possible left perihilar infiltrate. The patient received supplemental IV fluid hydration and was placed on broad-spectrum antimicrobial therapy. He was subsequently admitted to the medical intensive care unit for further management. On arrival to the ICU, the patient was placed on a Cici hugger due to persistent hypothermia. In addition, following his fluid boluses, he did have to be started on Levophed at 5 mcg/min to maintain hemodynamic stability. Past Medical History Past Medical History (Chronic Problems): Chronic Problems (Last Reviewed 03/24/19 @ 11:39 by Bella Angela) Anemia (Chronic) Nonrheumatic mitral valve prolapse (Chronic) Iron deficiency anemia (Chronic) Chronic respiratory failure (Chronic) Cerebral palsy (Chronic) Quadriplegic Severe mental retardation Chronic constipation PEG tube Edema (Chronic) Medical History: Medical History (Last Reviewed 03/24/19 @ 11:39 by Bella Angela) Nonrheumatic mitral valve prolapse (Chronic) I34.1 Iron deficiency anemia (Chronic) D50.9 Hypokalemia (Resolved) E87.6 Chronic respiratory failure (Chronic) J96.10 Cerebral palsy (Chronic) G80.9 Quadriplegic Severe mental retardation Chronic constipation PEG tube Edema (Chronic) R60.9 Aspiration pneumonia J69.0 Debility R53.81 History of seizure disorder Z86.69 Obesity E66.9 Redundant colon Q43.[address] Z93.0 SIRS (systemic inflammatory response syndrome) R65.10 Allergies cisapride monohydrate [From Propulsid] Allergy (Verified 06/04/19 00:05) Rash codeine Adverse Reaction (Verified 06/04/19 00:05) hallucinations metronidazole [From Flagyl] Adverse Reaction (Verified 06/04/19 00:05) Rash morphine Adverse Reaction (Verified 06/04/19 00:05) Hallucinations dust Allergy (Uncoded 06/04/19 00:05) Other Home Medications: Ambulatory Orders Medication Instructions Recorded Simethicone 40MG/0.6ML [Mylicon] 40 mg GT TID 11/09/13 Pantoprazole Sodium [Protonix] 20 ml GT BID 08/09/14 Phenobarbital 60 mg GT BID 02/19/17 Cetirizine HCl [Zyrtec] 10 ml GT DAILY 02/04/18 Lactobacillus Acidophilus 1 cap GT DAILY 02/04/18 [Acidophilus] Gabapentin 500 mg GT 4X/DAY 07/14/18 metoclopramide HCl 5 mg/5 mL oral 10 mg GT TID ml 09/16/18 solution Lorazepam [Ativan] 1 mg GT Q8 PRN 10/08/18 Cholecalciferol (Vitamin D3) 5 ml GT DAILY 12/25/18 [Vitamin D3] Cough Assist 1 dose .ROUTE .MEDSUPPLY 12/25/18 Ferrous Sulfate 5 ml GT DAILY 12/25/18 Furosemide 40 mg GT DAILY PRN 12/25/18 Potassium Chloride 1.5 ml GT DAILY PRN 12/25/18 oxygen concentrator 1 dose .ROUTE .MEDSUPPLY 12/25/18 Ascorbic Acid [Vitamin C] 500 mg PO DAILY #150 mls 12/27/18 doxazosin 2 mg tablet 2 mg PO DAILY tab 03/24/19 Baclofen [Ozobax] 20 mg GT 4X/DAY 05/09/19 Lactose-Reduced Food/Fiber [Jevity 1,500 ml PO DAILY 05/09/19 1.2 South Liquid] Ondansetron HCl [Zofran] 5 ml PO DAILY PRN 05/09/19 Polyethylene Glycol 3350 [Miralax] 17 gm GT TID 05/09/19 Surgical History: Surgical History (Last Reviewed 03/24/19 @ 11:39 by Bella Angela) Colostomy in place Z93.3 Heel cord lengthening bilaterally History of colostomy History of gastrostomy tube placement History of open reduction and internal fixation (ORIF) procedure Z98.890 left hip History of soft tissue release Bilateral hips and knees Status post insertion of intrathecal baclofen pump Z96.89 status post removal in March 2018. Surgical History: - - Baclofen pump, colostomy, G-tube, tracheostomy Psychiatric History: No pertinent psych hx Lives: With Family Smoking Status: Never smoker Tobacco Use: Non-smoker Alcohol: None Drugs: None - *Family History Maternal Family History: Family History (Last Reviewed 03/24/19 @ 11:39 by Bella Angela) Mother Hypertension Hepatitis C Father Hypertension Atrial fibrillation CAD (coronary artery disease) History Items: - - Mother with history of hypertension hepatitis C. Paternal Family History: Family History (Last Reviewed 03/24/19 @ 11:39 by Bella Angela) Mother Hypertension Hepatitis C Father Hypertension Atrial fibrillation CAD (coronary artery disease) History Items: - - Father with history of hypertension, coronary disease and atrial fibrillation. Review of Systems Unable to obtain accurate/complete ROS d/t: Due to baseline nonverbal status Patient Problems: Active and Suspected Problems (Last Reviewed 03/24/19 @ 11:39 by Bella Angela) Severe sepsis (Acute) Pneumonia involving left lung (Acute) Hypothermia due to non-environmental cause (Acute) Sinus bradycardia by electrocardiogram (Acute) Acute and chronic respiratory failure with hypoxia (Acute) Hypotension (Acute) Septic shock (Acute) Seizure disorder (Acute) Objective: The patient's most recent lab work, culture data and imaging studies have all been personally reviewed. Strep and urine Legionella antigens were negative. C. difficile PCR was negative. Respiratory viral panel was negative. - Physical Exam Vitals/I&O's: Vital Signs Temp Pulse Resp BP Pulse Ox 91.2 F L 63 12 100/71 99 06/04/19 06:00 06/04/19 06:00 06/04/19 06:00 06/04/19 06:00 06/04/19 06:00 Oxygen Flow Rate (L/min) 6 Oxygen Delivery Method Mechanical Ventilator Weight: 179 lb 14.355 oz Body Mass Index (BMI) 23.1 Finger Stick Blood Glucose 132 Intake and Output for Last 24 Hours 06/02/19 06/03/19 06/04/19 23:59 23:59 23:59 Intake Total 3041.75 / 3041.75 Balance 3041.75 / 3041.75 General: No apparent distress, Lethargic HEENT: Atraumatic, Normocephalic Oral: Moist Mucosa Neck: Supple, No Nodes, Trachea Midline, - - Tracheostomy site is C/D/I Lungs: Diminished Abdomen: Bowel Sounds Present, Soft, Non Tender, - Extremities: No clubbing, No cyanosis, Edema Skin: No breakdown Musculoskeletal: No Muscle Wasting, - - Exaggerated kyphoscoliosis Neurological: - - Spastic quadriplegia with baseline neurological status. Psych/Mental Status: Flat Affect Labs (Last 48 Hours) 06/04/19 06/04/19 06/04/19 00:12 00:22 00:22 WBC 2.6 L RBC 3.30 L Hgb 9.3 L Hct 29.7 L MCV 90.0 MCH 28.2 MCHC 31.3 L RDW Std Deviation 52.7 H RDW Coeff of Emilee 16.0 H Plt Count 72 L MPV 12.2 H Immature Gran % (Auto) 0.000 Neut % (Auto) 50.6 Lymph % (Auto) 39.5 Wilkin % (Auto) 6.8 Eos % (Auto) 2.7 Baso % (Auto) 0.4 Absolute Neuts (auto) 1.3 L Absolute Lymphs (auto) 1.04 Nucleated RBC % 0 Differential Comment Diff Path Review Platelet Estimate MOD DEC Plt Morphology Comment LARGE RBC Morphology N CHROM Polychromasia Hypochromasia Anisocytosis 1+ Macrocytosis RARE Sodium Potassium Chloride Carbon Dioxide Anion Gap BUN Creatinine Estim Creat Clear Calc Est GFR (MDRD) Af Amer Est GFR (MDRD) Non-Af BUN/Creatinine Ratio Glucose Lactic Acid Calcium Phosphorus Magnesium Ferritin Total Bilirubin AST ALT Alkaline Phosphatase Lactate Dehydrogenase C-React Prot Ext Range Total Protein Albumin Globulin Albumin/Globulin Ratio Lipase Procalcitonin TSH 2.41 Cortisol Urine Color Urine Clarity Urine pH Ur Specific Addison Urine Protein Urine Glucose (UA) Urine Ketones Urine Occult Blood Urine Nitrite Urine Bilirubin Urine Urobilinogen Ur Leukocyte Esterase Urine RBC Urine WBC Ur Squamous Epith Cells Urine Bacteria Hyaline Casts Urine Mucus COVID-19 (YAYO) MRSA (PCR) POC Glucose 132 H 06/04/19 06/04/19 06/04/19 00:22 00:22 00:22 WBC RBC Hgb Hct MCV MCH MCHC RDW Std Deviation RDW Coeff of Emilee Plt Count MPV Immature Gran % (Auto) Neut % (Auto) Lymph % (Auto) Wilkin % (Auto) Eos % (Auto) Baso % (Auto) Absolute Neuts (auto) Absolute Lymphs (auto) Nucleated RBC % Differential Comment Diff Path Review Platelet Estimate Plt Morphology Comment RBC Morphology Polychromasia Hypochromasia Anisocytosis Macrocytosis Sodium 139 Potassium 3.7 Chloride 105 Carbon Dioxide 30.0 Anion Gap 4 L BUN 18 Creatinine 0.30 L Estim Creat Clear Calc 377.19 Est GFR (MDRD) Af Amer 436 Est GFR (MDRD) Non-Af 361 BUN/Creatinine Ratio 60.4 H Glucose 129 H Lactic Acid 1.5 Calcium 8.9 Phosphorus Magnesium Ferritin Total Bilirubin 0.10 L AST 24 ALT 29 Alkaline Phosphatase 184 H Lactate Dehydrogenase C-React Prot Ext Range Total Protein 7.8 Albumin 2.9 L Globulin 4.9 H Albumin/Globulin Ratio 0.6 L Lipase Procalcitonin TSH Cortisol Pending Urine Color Urine Clarity Urine pH Ur Specific Addison Urine Protein Urine Glucose (UA) Urine Ketones Urine Occult Blood Urine Nitrite Urine Bilirubin Urine Urobilinogen Ur Leukocyte Esterase Urine RBC Urine WBC Ur Squamous Epith Cells Urine Bacteria Hyaline Casts Urine Mucus COVID-19 (YAYO) MRSA (PCR) POC Glucose 06/04/19 06/04/19 06/04/19 00:22 00:22 00:22 WBC RBC Hgb Hct MCV MCH MCHC RDW Std Deviation RDW Coeff of Emilee Plt Count MPV Immature Gran % (Auto) Neut % (Auto) Lymph % (Auto) Wilkin % (Auto) Eos % (Auto) Baso % (Auto) Absolute Neuts (auto) Absolute Lymphs (auto) Nucleated RBC % Differential Comment Diff Path Review Platelet Estimate Plt Morphology Comment RBC Morphology Polychromasia Hypochromasia Anisocytosis Macrocytosis Sodium Potassium Chloride Carbon Dioxide Anion Gap BUN Creatinine Estim Creat Clear Calc Est GFR (MDRD) Af Amer Est GFR (MDRD) Non-Af BUN/Creatinine Ratio Glucose Lactic Acid Calcium Phosphorus 4.0 Magnesium 2.0 Ferritin 81 Total Bilirubin AST ALT Alkaline Phosphatase Lactate Dehydrogenase 202 C-React Prot Ext Range 20.10 H Total Protein Albumin Globulin Albumin/Globulin Ratio Lipase 336 Procalcitonin 0.04 TSH Cortisol Urine Color Urine Clarity Urine pH Ur Specific Addison Urine Protein Urine Glucose (UA) Urine Ketones Urine Occult Blood Urine Nitrite Urine Bilirubin Urine Urobilinogen Ur Leukocyte Esterase Urine RBC Urine WBC Ur Squamous Epith Cells Urine Bacteria Hyaline Casts Urine Mucus COVID-19 (YAYO) MRSA (PCR) POC Glucose 06/04/19 06/04/19 06/04/19 00:41 02:40 03:30 WBC 1.9 L RBC 2.88 L Hgb 8.1 L Hct 26.4 L MCV 91.7 MCH 28.1 MCHC 30.7 L RDW Std Deviation 53.2 H RDW Coeff of Emilee 16.1 H Plt Count 50 L* MPV 11.7 Immature Gran % (Auto) 0.000 Neut % (Auto) 44.1 L Lymph % (Auto) 41.9 H Wilkin % (Auto) 10.2 H Eos % (Auto) 3.8 Baso % (Auto) 0.0 Absolute Neuts (auto) 0.8 L Absolute Lymphs (auto) 0.78 L Nucleated RBC % 0 Differential Comment Diff Path Review May foll Platelet Estimate MKD DEC Plt Morphology Comment RBC Morphology Polychromasia RARE Hypochromasia 1+ Anisocytosis 1+ Macrocytosis Sodium Potassium Chloride Carbon Dioxide Anion Gap BUN Creatinine Estim Creat Clear Calc Est GFR (MDRD) Af Amer Est GFR (MDRD) Non-Af BUN/Creatinine Ratio Glucose Lactic Acid Calcium Phosphorus Magnesium Ferritin Total Bilirubin AST ALT Alkaline Phosphatase Lactate Dehydrogenase C-React Prot Ext Range Total Protein Albumin Globulin Albumin/Globulin Ratio Lipase Procalcitonin TSH Cortisol Urine Color Yellow Urine Clarity Sl. Cloudy Urine pH 5.0 Ur Specific Addison 1.025 Urine Protein 30 H Urine Glucose (UA) Normal Urine Ketones 5 H Urine Occult Blood 10 H Urine Nitrite Negative Urine Bilirubin Negative Urine Urobilinogen Normal Ur Leukocyte Esterase Negative Urine RBC 0-5 SEEN Urine WBC 0-5 SEEN Ur Squamous Epith Cells 0 SEEN Urine Bacteria 0 SEEN Hyaline Casts 25-50 SEEN Urine Mucus 0 SEEN COVID-19 (YAYO) Pending MRSA (PCR) POC Glucose 06/04/19 06/04/19 03:30 03:45 WBC RBC Hgb Hct MCV MCH MCHC RDW Std Deviation RDW Coeff of Emilee Plt Count MPV Immature Gran % (Auto) Neut % (Auto) Lymph % (Auto) Wilkin % (Auto) Eos % (Auto) Baso % (Auto) Absolute Neuts (auto) Absolute Lymphs (auto) Nucleated RBC % Differential Comment Diff Path Review Platelet Estimate Plt Morphology Comment RBC Morphology Polychromasia Hypochromasia Anisocytosis Macrocytosis Sodium 141 Potassium 3.7 Chloride 109 H Carbon Dioxide 28.0 Anion Gap 4 L BUN 14 Creatinine 0.22 L Estim Creat Clear Calc 530.61 Est GFR (MDRD) Af Amer 626 Est GFR (MDRD) Non-Af 517 BUN/Creatinine Ratio 64.2 H Glucose 142 H Lactic Acid Calcium 7.3 L Phosphorus Magnesium Ferritin Total Bilirubin < 0.10 L AST 21 ALT 24 Alkaline Phosphatase 158 H Lactate Dehydrogenase C-React Prot Ext Range Total Protein 6.5 Albumin 2.4 L Globulin 4.1 Albumin/Globulin Ratio 0.6 L Lipase Procalcitonin TSH Cortisol Urine Color Urine Clarity Urine pH Ur Specific Addison Urine Protein Urine Glucose (UA) Urine Ketones Urine Occult Blood Urine Nitrite Urine Bilirubin Urine Urobilinogen Ur Leukocyte Esterase Urine RBC Urine WBC Ur Squamous Epith Cells Urine Bacteria Hyaline Casts Urine Mucus COVID-19 (YAYO) MRSA (PCR) Pending POC Glucose Microbiology 06/04/19 04:00 Stool C. difficile DNA Amplification - Final 06/04/19 01:35 Mucosa - Other Respiratory Panel (PCR) - Final 06/04/19 04:00 Urine Catheter - Augustin Streptococcus pneumoniae Antigen (M - Final 06/04/19 04:00 Urine Catheter - Augustin Legionella Antigen - Final Clinical Impression(s) from Imaging Studies Chest X-Ray 06/03/19 23:59 IMPRESSION: Possible left perihilar infiltrate, clinical correlation recommended. Lines and tubes as described. Electronically Signed: May Phillips MD at 1:22 EDT , Service support , Current Medications Acetaminophen (Tylenol) 650 mg RECTAL Q4H PRN PRN PRN Reason: Pain Score 1-10/Temp > 100.7 F Albuterol Sulfate (Ventolin Aerosols) 2.5 mg INHALATION Q2H PRN PRN PRN Reason: Dyspnea, wheezing Albuterol/Ipratropium (Duoneb) 3 ml INHALATION Q4HWA.RT JOYCE Ascorbic Acid (Vitamin C) 500 mg GT DAILY JOYCE Atropine Sulfate () 1 mg IV X1 PRN PRN Reason: sustained bradycardia <30 Baclofen (Lioresal) 5 mg GT Q8H JOYCE Calamine/Phenol (Calmoseptine Ointment) 1 applic TOPICAL 4X/DAY JOYCE; Protocol Chlorhexidine Gluconate () 15 ml PO BID JOYCE Dextrose (D50w Syringe) 0 gm IV X1 PRN; Protocol PRN Reason: Hypoglycemia Doxazosin Mesylate (Cardura) 2 mg GT DAILY [facility] Enoxaparin Sodium (Lovenox) 40 mg SC DAILY [facility] Ferrous Sulfate (Ferrous Sulfate Syrup) 300 mg GT DAILY [facility] Gabapentin (Neurontin) 450 mg GT 4X/DAY JOYCE Glucagon () 1 mg IM .X1 PRN PRN Reason: Hypoglycemia Heparin Sodium (Beef Lung) () 50 units IV UD PRN PRN Reason: Port-a-Cath (VAD)Heparin Flush Hydralazine HCl (Apresoline Iv) 10 mg IV Q4H PRN PRN PRN Reason: SBP > 160 Sodium Chloride () 1,000 mls @ 150 mls/hr IV .[id number] [facility] Last Infusion: 06/04/19 05:00 Dose: 0 mls/hr Documented by: Vancomycin IV Pharmacy to Dose (1 ea/ Sodium Chloride) 500 mls @ 250 mls/hr IV X1 PRN; Protocol PRN Reason: Rx to Dose Piperacillin Sod/Tazobactam (Sod 3.375 gm/ Sodium Chloride) 50 mls @ 12.5 mls/hr IV Q8 JOYCE Sodium Chloride () 250 mls @ 15 mls/hr IV .[id number] PRN PRN Reason: Saline Flush Sodium Chloride () 250 mls @ 15 mls/hr IV .[id number] PRN PRN Reason: Additional IVPB Infusion Vancomycin HCl (Vancomycin) 1,000 mg in 200 mls @ 200 mls/hr IV Q12H [facility] Norepinephrine Bitartrate 8 mg (/ Sodium Chloride) 250 mls @ 9.375 mls/hr CONT INF .[id number] [facility]; Protocol Last Titration: 06/04/19 06:00 Dose: 5 mcg/min, 9.4 mls/hr Documented by: Lansoprazole (Lansoprazole) 15 mg GT BID [facility] Loratadine (Claritin) 10 mg GT DAILY JOYCE Lorazepam (Ativan) 1 mg GT Q8 PRN PRN Reason: AGITATION Metoclopramide HCl (Reglan) 10 mg GT Q8H [facility] Nystatin (Mycostatin Powder) 1 applic TOPICAL TID PRN PRN; Protocol PRN Reason: intertrigo Ondansetron HCl (Zofran) 4 mg IV Q8H PRN PRN PRN Reason: NAUSEA/VOMITING Phenobarbital (Phenobarbital) 60 mg GT BID [facility] Prochlorperazine Edisylate (Compazine Iv) 5 mg IV Q4H PRN PRN PRN Reason: Breakthrough Nausea/Vomiting Simethicone (Mylicon) 40 mg GT Q8H JOYCE Sodium Chloride () 10 - 40 ml IV UD PRN PRN Reason: Port-a-Cath (VAD) Flush Sodium Chloride (0.9% Nacl (Sterile) Posiflush) 10 - 40 ml IV UD PRN PRN Reason: Port access or dressing change Sodium Chloride () 10 - 40 ml IV UD PRN PRN Reason: SALINE FLUSH Assessment/Plan Active and Suspected Problems (Last Reviewed 03/24/19 @ 11:39 by Bella Angela) Severe sepsis (Acute) Pneumonia involving left lung (Acute) Hypothermia due to non-environmental cause (Acute) Sinus bradycardia by electrocardiogram (Acute) Acute and chronic respiratory failure with hypoxia (Acute) Hypotension (Acute) Septic shock (Acute) Seizure disorder (Acute) RECOMMENDATIONS: 1. Continue mechanical ventilatory support. 2. Obtain sputum and sent for culture. 3. Wean FiO2 to maintain oxygen saturations at or above 90%. 4. Wean Levophed to maintain a mean arterial pressure at or above 65 mmHg. 5. Nutrition consult for tube feed recommendations. 6. Continue appropriate ICU prophylaxis. IMPRESSIONS: 1. Septic shock Concern for underlying pulmonary infectious process. Continue mechanical ventilatory support and wean as tolerated. Continue broad-spectrum antimicrobials, pending infectious work-up. Continue Levophed and wean to maintain a mean arterial pressure at or above 65 mmHg. Maintain COVID precautions, pending results of testing. 2. Acute on chronic respiratory failure Continue current supportive measures with mechanical ventilatory support and wean FiO2 to maintain oxygen saturations at or above 90%. Continue empiric antimicrobials, pending infectious work-up. 3. Bradycardia Likely secondary to the patient's presenting sepsis syndrome and hypothermia. The patient's bradycardia appears to be resolving as he becomes euthermic. 4. 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 Continue home medications as indicated. Suspect pancytopenia is secondary to underlying infection. We will plan to continue to monitor daily. TIME: 39 minutes of critical care time, independent of procedures, was spent addressing the patient's septic shock, acute on chronic respiratory failure, bradycardia, review of all data and collaboration with the care team. [phone] [id number] Critical care first hour
[2019-06-04] MEDS: Ipratropium/Albuterol Sulfate 3 ML AMPUL.NEB INHALATION ×4 (07:10→19:18)
--- NOTE | 2019-06-04 07:51 | SEPSIS_ITS ---
Sepsis Note - Physical Exam/Vitals Subjective: The patient is currently hemodynamically stable on Levophed. Objective: Chest X-Ray 06/03/19 23:59 IMPRESSION: Possible left perihilar infiltrate, clinical correlation recommended. Lines and tubes as described. Electronically Signed: May Phillips MD at 1:22 EDT , Service support , Temp Pulse Resp BP Pulse Ox 92.7 F L 81 12 108/75 95 06/04/19 07:01 06/04/19 07:12 06/04/19 07:12 06/04/19 07:01 06/04/19 07:12 06/04/19 06/04/19 06/04/19 03:45 03:30 03:30 WBC 1.9 L RBC 2.88 L Hgb 8.1 L Hct 26.4 L MCV 91.7 MCH 28.1 MCHC 30.7 L RDW Std Deviation 53.2 H RDW Coeff of Emilee 16.1 H Plt Count 50 L* MPV 11.7 Immature Gran % (Auto) 0.000 Neut % (Auto) 44.1 L Lymph % (Auto) 41.9 H [place] % (Auto) 10.2 H Eos % (Auto) 3.8 Baso % (Auto) 0.0 Absolute Neuts (auto) 0.8 L Absolute Lymphs (auto) 0.78 L Nucleated RBC % 0 Differential Comment Diff Path Review May foll Platelet Estimate MKD DEC Plt Morphology Comment RBC Morphology Polychromasia RARE Hypochromasia 1+ Anisocytosis 1+ Macrocytosis Sodium 141 Potassium 3.7 Chloride 109 H Carbon Dioxide 28.0 Anion Gap 4 L BUN 14 Creatinine 0.22 L Estim Creat Clear Calc 530.61 Est GFR (MDRD) Af Amer 626 Est GFR (MDRD) Non-Af 517 BUN/Creatinine Ratio 64.2 H Glucose 142 H Lactic Acid Calcium 7.3 L Phosphorus Magnesium Ferritin Total Bilirubin < 0.10 L AST 21 ALT 24 Alkaline Phosphatase 158 H Lactate Dehydrogenase C-React Prot Ext Range Total Protein 6.5 Albumin 2.4 L Globulin 4.1 Albumin/Globulin Ratio 0.6 L Lipase Procalcitonin TSH Cortisol Urine Color Urine Clarity Urine pH Ur Specific [place] Urine Protein Urine Glucose (UA) Urine Ketones Urine Occult Blood Urine Nitrite Urine Bilirubin Urine Urobilinogen Ur Leukocyte Esterase Urine RBC Urine WBC Ur Squamous Epith Cells Urine Bacteria Hyaline Casts Urine Mucus COVID-19 (YAYO) MRSA (PCR) Pending POC Glucose 06/04/19 06/04/19 06/04/19 02:40 00:41 00:22 WBC RBC Hgb Hct MCV MCH MCHC RDW Std Deviation RDW Coeff of Emilee Plt Count MPV Immature Gran % (Auto) Neut % (Auto) Lymph % (Auto) [place] % (Auto) Eos % (Auto) Baso % (Auto) Absolute Neuts (auto) Absolute Lymphs (auto) Nucleated RBC % Differential Comment Diff Path Review Platelet Estimate Plt Morphology Comment RBC Morphology Polychromasia Hypochromasia Anisocytosis Macrocytosis Sodium Potassium Chloride Carbon Dioxide Anion Gap BUN Creatinine Estim Creat Clear Calc Est GFR (MDRD) Af Amer Est GFR (MDRD) Non-Af BUN/Creatinine Ratio Glucose Lactic Acid Calcium Phosphorus Magnesium Ferritin Total Bilirubin AST ALT Alkaline Phosphatase Lactate Dehydrogenase C-React Prot Ext Range Total Protein Albumin Globulin Albumin/Globulin Ratio Lipase Procalcitonin 0.04 TSH Cortisol Urine Color Yellow Urine Clarity Sl. Cloudy Urine pH 5.0 Ur Specific [place] 1.025 Urine Protein 30 H Urine Glucose (UA) Normal Urine Ketones 5 H Urine Occult Blood 10 H Urine Nitrite Negative Urine Bilirubin Negative Urine Urobilinogen Normal Ur Leukocyte Esterase Negative Urine RBC 0-5 SEEN Urine WBC 0-5 SEEN Ur Squamous Epith Cells 0 SEEN Urine Bacteria 0 SEEN Hyaline Casts 25-50 SEEN Urine Mucus 0 SEEN COVID-19 (YAYO) Pending MRSA (PCR) POC Glucose 06/04/19 06/04/19 06/04/19 00:22 00:22 00:22 WBC RBC Hgb Hct MCV MCH MCHC RDW Std Deviation RDW Coeff of Emilee Plt Count MPV Immature Gran % (Auto) Neut % (Auto) Lymph % (Auto) [place] % (Auto) Eos % (Auto) Baso % (Auto) Absolute Neuts (auto) Absolute Lymphs (auto) Nucleated RBC % Differential Comment Diff Path Review Platelet Estimate Plt Morphology Comment RBC Morphology Polychromasia Hypochromasia Anisocytosis Macrocytosis Sodium Potassium Chloride Carbon Dioxide Anion Gap BUN Creatinine Estim Creat Clear Calc Est GFR (MDRD) Af Amer Est GFR (MDRD) Non-Af BUN/Creatinine Ratio Glucose Lactic Acid Calcium Phosphorus 4.0 Magnesium 2.0 Ferritin 81 Total Bilirubin AST ALT Alkaline Phosphatase Lactate Dehydrogenase 202 C-React Prot Ext Range 20.10 H Total Protein Albumin Globulin Albumin/Globulin Ratio Lipase 336 Procalcitonin TSH Cortisol 20.30 Urine Color Urine Clarity Urine pH Ur Specific [place] Urine Protein Urine Glucose (UA) Urine Ketones Urine Occult Blood Urine Nitrite Urine Bilirubin Urine Urobilinogen Ur Leukocyte Esterase Urine RBC Urine WBC Ur Squamous Epith Cells Urine Bacteria Hyaline Casts Urine Mucus COVID-19 (YAYO) MRSA (PCR) POC Glucose 06/04/19 06/04/19 06/04/19 00:22 00:22 00:22 WBC 2.6 L RBC 3.30 L Hgb 9.3 L Hct 29.7 L MCV 90.0 MCH 28.2 MCHC 31.3 L RDW Std Deviation 52.7 H RDW Coeff of Emilee 16.0 H Plt Count 72 L MPV 12.2 H Immature Gran % (Auto) 0.000 Neut % (Auto) 50.6 Lymph % (Auto) 39.5 [place] % (Auto) 6.8 Eos % (Auto) 2.7 Baso % (Auto) 0.4 Absolute Neuts (auto) 1.3 L Absolute Lymphs (auto) 1.04 Nucleated RBC % 0 Differential Comment Diff Path Review Platelet Estimate MOD DEC Plt Morphology Comment LARGE RBC Morphology N CHROM Polychromasia Hypochromasia Anisocytosis 1+ Macrocytosis RARE Sodium 139 Potassium 3.7 Chloride 105 Carbon Dioxide 30.0 Anion Gap 4 L BUN 18 Creatinine 0.30 L Estim Creat Clear Calc 377.19 Est GFR (MDRD) Af Amer 436 Est GFR (MDRD) Non-Af 361 BUN/Creatinine Ratio 60.4 H Glucose 129 H Lactic Acid 1.5 Calcium 8.9 Phosphorus Magnesium Ferritin Total Bilirubin 0.10 L AST 24 ALT 29 Alkaline Phosphatase 184 H Lactate Dehydrogenase C-React Prot Ext Range Total Protein 7.8 Albumin 2.9 L Globulin 4.9 H Albumin/Globulin Ratio 0.6 L Lipase Procalcitonin TSH Cortisol Urine Color Urine Clarity Urine pH Ur Specific [place] Urine Protein Urine Glucose (UA) Urine Ketones Urine Occult Blood Urine Nitrite Urine Bilirubin Urine Urobilinogen Ur Leukocyte Esterase Urine RBC Urine WBC Ur Squamous Epith Cells Urine Bacteria Hyaline Casts Urine Mucus COVID-19 (YAYO) MRSA (PCR) POC Glucose 06/04/19 06/04/19 00:22 00:12 WBC RBC Hgb Hct MCV MCH MCHC RDW Std Deviation RDW Coeff of Emilee Plt Count MPV Immature Gran % (Auto) Neut % (Auto) Lymph % (Auto) [place] % (Auto) Eos % (Auto) Baso % (Auto) Absolute Neuts (auto) Absolute Lymphs (auto) Nucleated RBC % Differential Comment Diff Path Review Platelet Estimate Plt Morphology Comment RBC Morphology Polychromasia Hypochromasia Anisocytosis Macrocytosis Sodium Potassium Chloride Carbon Dioxide Anion Gap BUN Creatinine Estim Creat Clear Calc Est GFR (MDRD) Af Amer Est GFR (MDRD) Non-Af BUN/Creatinine Ratio Glucose Lactic Acid Calcium Phosphorus Magnesium Ferritin Total Bilirubin AST ALT Alkaline Phosphatase Lactate Dehydrogenase C-React Prot Ext Range Total Protein Albumin Globulin Albumin/Globulin Ratio Lipase Procalcitonin TSH 2.41 Cortisol Urine Color Urine Clarity Urine pH Ur Specific [place] Urine Protein Urine Glucose (UA) Urine Ketones Urine Occult Blood Urine Nitrite Urine Bilirubin Urine Urobilinogen Ur Leukocyte Esterase Urine RBC Urine WBC Ur Squamous Epith Cells Urine Bacteria Hyaline Casts Urine Mucus COVID-19 (YAYO) MRSA (PCR) POC Glucose 132 H General: - - Baseline neurological status. Nonverbal. Lungs: Diminished Cardiovascular: Bradycardic Capillary Refill: <3 seconds Peripheral Pulses: Normal Skin Color: [place] - Assessment/Plan Continue current supportive measures as noted in ICU consultation note. I have reassessed the patient's hemodynamic status following IV fluid resuscitation. - Attestation Sepsis Attestation: Sepsis re-evaluation was performed
[2019-06-04] MEDS: LORazepam 1 MG Tablet GT ×2 (08:00→19:43)
[2019-06-04 08:52] LABS: M R Staph aureus DNA By PCR Negative (Negative); Probe Check PASS; Specimen Processing Control PASS
[2019-06-04] MEDS: Doxazosin 1 MG Tablet 2 MG GT (09:11)
[2019-06-04] MEDS: Chlorhexidine 15 ML PO ×2 (09:12→22:53)
[2019-06-04] MEDS: Lansoprazole 15 MG Capsule.DR GT ×2 (09:13→22:52)
[2019-06-04] MEDS: Loratadine 10 MG Tablet GT (09:13)
[2019-06-04] MEDS: Ferrous Sulfate 300 MG/5 ML UDC GT (09:13)
[2019-06-04] MEDS: Baclofen 10 MG Tablet 5 MG GT (09:14)
[2019-06-04] MEDS: Enoxaparin 40 MG/0.4 ML Syringe SC (09:15)
[2019-06-04] MEDS: Gabapentin 300 MG Capsule 450 MG GT (09:16)
[2019-06-04] MEDS: Phenobarbital 20 MG/5 ML UDC 60 MG GT ×2 (09:16→22:52)
[2019-06-04] MEDS: Ascorbic Acid 500 MG Tablet GT (09:17)
[2019-06-04] MEDS: Metoclopramide 10 MG Tablet GT ×2 (09:17→17:45)
--- NOTE | 2019-06-04 12:39 | NT.THERAPY_ITS ---
Nutrition Therapy Report - History Nutrition Services has been consulted to:: Manage enteral nutrition Current diet / nutrition support order:: NPO - Anthropometric Measurements Height:: 6 ft 2 in Weight:: 81.6 kg Body Mass Index (BMI):: 23.1 - Relevant Labs Relevant Labs:: WBC 1.9 K/mm3 (4.4-11.0) L 06/04/19 03:30 RBC 2.88 M/mm3 (4.6-6.2) L 06/04/19 03:30 Hgb 8.1 g/dL (13.0-16.5) L 06/04/19 03:30 Hct 26.4 % (40-54) L 06/04/19 03:30 MCHC 30.7 g/dL (32-36) L 06/04/19 03:30 RDW Std Deviation 53.2 fl (35.1-43.9) H 06/04/19 03:30 RDW Coeff of Emilee 16.1 % (11.6-14.6) H 06/04/19 03:30 Plt Count 50 K/mm3 (150-450) L* 06/04/19 03:30 MPV 12.2 fl (6.2-12.0) H 06/04/19 00:22 Neut % (Auto) 44.1 % (47-70) L 06/04/19 03:30 Lymph % (Auto) 41.9 % (19-41) H 06/04/19 03:30 [place] % (Auto) 10.2 % (0-10) H 06/04/19 03:30 Absolute Neuts (auto) 0.8 X10^3/uL (2.0-7.7) L 06/04/19 03:30 Absolute Lymphs (auto) 0.78 X10^3/uL (0.83-4.51) L 06/04/19 03:30 Chloride 109 mmol/L (98-107) H 06/04/19 03:30 Anion Gap 4 (5-15) L 06/04/19 03:30 Creatinine 0.22 mg/dL (0.70-1.30) L 06/04/19 03:30 BUN/Creatinine Ratio 64.2 RATIO (10-20) H 06/04/19 03:30 Glucose 142 mg/dL (74-106) H 06/04/19 03:30 Calcium 7.3 mg/dL (8.5-10.1) L 06/04/19 03:30 Total Bilirubin < 0.10 mg/dL (0.20-1.00) L 06/04/19 03:30 Alkaline Phosphatase 158 U/L (45-117) H 06/04/19 03:30 C-React Prot Ext Range 20.10 mg/L (0.0-3.0) H 06/04/19 00:22 Albumin 2.4 g/dL (3.2-5.0) L 06/04/19 03:30 Globulin 4.9 g/dL (2.2-4.2) H 06/04/19 00:22 Albumin/Globulin Ratio 0.6 RATIO (0.9-2.4) L 06/04/19 03:30 - Assessment Food / Nutrition-Related History:: ICU rounds today--TF recs per Dr. Moreira; followed up with RE Helm with instructions to start order TF as per rec. Pt to continue mechanical ventilatory support. Pt is familiar to this service and typically takes Jevity 1.5 south via PEG at home/NPO but, will start on Vital AF 1.2 south given acute pulm condition at this time. Per EMR review, pt appears to have had gradual wt gain as noted UBW~72 Kg about 5 months ago. - Nutrition Diagnosis Problem / Etiology / Signs & Symptoms (PES):: Difficulty swallowing related to neurological condition as evidenced by PEG TF support/NPO. Increased nutrient needs for protein related to inflammatory response as evidenced by CRP 20.1. Evidence of Malnutrition Exists:: No - Nutrition Intervention Nutrition Prescription:: Will initiate TF support with Vital AF 1.2 South @ 25 ml/hr & increase as tolerated by 10 ml/hr Q 4-6 hours to goal rate 55 ml/hr. Water flush with 130 ml free water 4 x per day. TF at goal rate with water flushes will provide 1584 kcal, 99 gm protein and 1590 ml free water per day. Pt to remain NPO; he does not take oral nutrition. - Food / Nutrient Delivery Interventions Summary of nutrition intervention:: Enteral nutition support via PEG; NPO. Nutrition support ordered as / adjusted to:: Vital AF 1.2 South @ 25 ml/hr & increase as tolerated by 10 ml/hr Q 4-6 hours to goal rate 55 ml/hr. Water flush with 130 ml free water 4 x per day. TF at goal rate with water flushes will provide 1584 kcal, 99 gm protein and 1590 ml free water per day. Nutrition education provided?: No - MNT Monitoring Further MNT monitoring and evaluation required?: Yes MNT Follow-up in:: 1-2 days
--- NOTE | 2019-06-04 13:49 | NURSING ---
Pt placed back on karrie hugger at this time for core temp reading 95.7. Will assess rectal temperature for comparison upon reassessment.
[2019-06-04] MEDS: Vital AF 1.2 Cal Liquid 1,000 ML 55 ML GT (14:01)
--- NOTE | 2019-06-04 15:31 | NURSING ---
Fluid warmer initiated for core temp 94.8, temporal artery 96.2
[2019-06-04] MEDS: Baclofen 10 MG Tablet 20 MG GT ×2 (17:46→22:52)
[2019-06-04] MEDS: Gabapentin 100 MG Capsule 500 MG PO ×2 (17:47→22:52)
--- NOTE | 2019-06-04 18:41 | NURSING ---
Cici willingham removed for temp 97.2. Warm IVF still infusing.
[2019-06-04] MEDS: Vancomycin IV 1,000 MG/200 ML BAG 200 MG IV (20:57)
[2019-06-05] VITALS (35 sets, daily range): BP systolic 79–142; BP diastolic 46–99; PULSE 63–108; RESP 12–20; TEMP 35.2–37.5; O2SAT 90–100
[2019-06-05] MEDS: Baclofen 10 MG Tablet 20 MG GT ×4 (03:00→22:05)
[2019-06-05] MEDS: Metoclopramide 10 MG Tablet GT ×3 (03:00→18:38)
[2019-06-05] MEDS: Gabapentin 100 MG Capsule 500 MG PO ×4 (03:00→22:05)
[2019-06-05] MEDS: 0.9% Normal Saline 1,000 ML 150 ML IV ×2 (05:00→11:45)
[2019-06-05] MEDS: Ipratropium/Albuterol Sulfate 3 ML AMPUL.NEB INHALATION ×4 (06:44→18:38)
[2019-06-05] MEDS: Enoxaparin 40 MG/0.4 ML Syringe SC (08:45)
[2019-06-05] MEDS: Chlorhexidine 15 ML PO ×2 (08:45→22:05)
[2019-06-05] MEDS: Phenobarbital 20 MG/5 ML UDC 60 MG GT ×2 (08:46→22:05)
[2019-06-05] MEDS: Lansoprazole 15 MG Capsule.DR GT ×2 (08:47→22:05)
[2019-06-05] MEDS: Ferrous Sulfate 300 MG/5 ML UDC GT (08:47)
[2019-06-05] MEDS: Doxazosin 1 MG Tablet 2 MG GT (08:48)
[2019-06-05] MEDS: Ascorbic Acid 500 MG Tablet GT (08:48)
[2019-06-05] MEDS: Loratadine 10 MG Tablet GT (08:48)
--- NOTE | 2019-06-05 10:34 | CASEMGMT ---
Social Work Note LAYA reviewed notes. Pt has history of Cerebral Palsy and MRDD, is nonverbal and pt's parents Matteo and Michael are pt's legal guardians. LAYA placed a call to pt's mother Matteo to confirm information from previous visit is still accurate. LAYA introduced self and role at [facility]. Matteo states that pt still lives with her and pt's father Michael and they are caregivers for pt. Matteo and Ray are legal guardians for pt. Matteo confirms that they still have same DME as listed below and still receive services through [facility] - IND[facility]RIAL ANALYST 5-7 days a week and aide services.Matteo states that lately the INDUSTRIAL ANALYST as been out 7 days a week. Matteo confirms that these services are provided through [employer] and pt's CM through [employer] is still [facility]. Matteo states that it has been difficult to find overnight help for pt in the home and [facility] is still working on getting additional help in the home for overnight for pt. Matteo states that pt gets his ventilator supplies through [facility] and she had some concerns that they may run out of supplies due to the COVID pandemic at this time. Matteo states that [facility] is working on making sure they have enough ventilator supplies and working on a back up plan in the event that they run out of supplies. Matteo states that the plan is for pt to return home at this time and states no concern with pt returning home at discharge and denied additional needs or concerns at this time. Pt was admitted to [facility] on 12/25/2018-12/27/2018 and RN CM assessment from that time is listed below and all information listed below is still accurate. 12/26/18 14:05 - Case Management Note by Seamus Tejada Acct Num: [id number] : [id number] Patient Age: 38 RN CM Assessment Presentation: Sepsis, Pneumonia Intro role of CM and purpose of RN CM assessment to patient's mother in room. Demographics, PCP and Pharmacy verified. Pt has Cerebral Palsy, unable to participate in assessment. Mother and Father are main caregivers for patient. Per mother, they have extensive services and equipment at home. No new needs identified. Per mother, plan will be for pt to return home on discharge via their wheelchair van. If pt needs intermittent ventilatory support, this can be provided on the way home by the portable vent pt has. Mother is well versed in care of pt and use of equipment. PCP: Dr. Conn Specialists: Dr. Monsalve Preferred Pharmacy: [facility] Retail Pharmacy Insurance: [employer]/CATHY Prescription Benefit: yes LNOK: Mother and Father are legal guardians Living Arrangements: Pt lives with parents.Per mother, they have all equipment/assistance needs already. Transportation: [facility] parents own DME: Wheelchair, home has ceiling tract, estefany lift, elevator to lower level of home, cough assist device, feeding pump, hospital bed, ramp access into home. Oxygen: concentrator, ventilator HHC: [facility]- INDUSTRIAL ANALYST 5-7 days per week 8am-8pm, aides 3 nights per week. Provided through [facility] [employer] [facility] LAYA Consult: Call to LAYA Sena-notification pt has legal guardian and services through [employer] [facility] DC PLAN: Anticipate Home with previous services. Ishan BAL RN ACM LAYA placed a call to pt's CM [facility] Conn ([phone], ext.[phone]) and left message informing her of pt's admission to [facility]. SW to fax discharge instructions to [facility] once pt is discharged ([phone]). Plan: Home with previous services Veronica Oleary MSW, [employer]UGHTSMAN
[2019-06-05] MEDS: Vancomycin IV 1,000 MG/200 ML BAG 200 MG IV (10:51)
--- NOTE | 2019-06-05 10:57 | PN_ITS ---
Subjective: Patient did okay overnight. Nursing staff is reporting patient has been more interactive compared to previous. Patient has tolerated tube feeds. Patient reportedly had bradycardia at home, but heart rates have improved overnight. Patient is on 8 of PEEP, but FiO2 has improved to 30%. There is been no fever reported overnight. No bleeding has been reported. General: Alert, Non-Cooperative, - - Cerebral palsy appearance. Will occasionally smile HEENT: Atraumatic, PERRLA, EOMI, Normocephalic, - - No scleral icterus or injection Oral: Moist Mucosa, - - Gingival hyperplasia Neck: Supple, No JVD, No Nodes, Trachea Midline, - - Trach is clean, dry and intact Lungs: No rhonchi, No wheeze, No rales, Rhonchi - Right greater than left, - - Symmetric expansion Cardiovascular: Regular rate, Regular Rhythm, Normal S1, Normal S2, No murmurs, No rub noted, No Gallop Abdomen: Bowel Sounds Present, Soft, Non Tender, Non-Distended, Obese, - - Ostomy and Fracisco button noted. Extremities: No cyanosis - Multiple contractions noted, Edema, - Skin: No rashes, No breakdown Musculoskeletal: No Tenderness to Palpation of Joints or Extremities Lymphatic: No Cervical, Supraclavicular, or Inguinal Adenopathy Neurological: - - Neurologic status appears to be at patient's baseline. He is quadriplegic with spasticity. Psych/Mental Status: Restless Vital Signs Temp Pulse Resp BP Pulse Ox 37.2 C 80 15 97/56 L 97 06/05/19 05:00 06/05/19 07:24 06/05/19 07:20 06/05/19 05:00 06/05/19 07:20 Oxygen Flow Rate (L/min) 6 Oxygen Delivery Method Mechanical Ventilator Weight: 81.6 kg Body Mass Index (BMI) 23.1 Finger Stick Blood Glucose 132 Intake and Output for Last 24 Hours 06/03/19 06/04/19 06/05/19 23:59 23:59 23:59 Intake Total 6672.55 / 6732.55 1187.5 / 1187.5 Output Total 1650 / 1650 Balance 5022.55 / 5082.55 1187.5 / 1187.5 Labs (Last 48 Hours) 04/12/20 04/12/20 04/12/20 00:12 00:22 00:22 WBC 2.6 L RBC 3.30 L Hgb 9.3 L Hct 29.7 L MCV 90.0 MCH 28.2 MCHC 31.3 L RDW Std Deviation 52.7 H RDW Coeff of Emilee 16.0 H Plt Count 72 L MPV 12.2 H Immature Gran % (Auto) 0.000 Neut % (Auto) 50.6 Lymph % (Auto) 39.5 [place] % (Auto) 6.8 Eos % (Auto) 2.7 Baso % (Auto) 0.4 Absolute Neuts (auto) 1.3 L Absolute Lymphs (auto) 1.04 Nucleated RBC % 0 Differential Comment Diff Path Review Platelet Estimate MOD DEC Plt Morphology Comment LARGE RBC Morphology N CHROM Polychromasia Hypochromasia Anisocytosis 1+ Macrocytosis RARE Sodium Potassium Chloride Carbon Dioxide Anion Gap BUN Creatinine Estim Creat Clear Calc Est GFR (MDRD) Af Amer Est GFR (MDRD) Non-Af BUN/Creatinine Ratio Glucose Lactic Acid Calcium Phosphorus Magnesium Ferritin Total Bilirubin AST ALT Alkaline Phosphatase Lactate Dehydrogenase C-React Prot Ext Range Total Protein Albumin Globulin Albumin/Globulin Ratio Lipase Procalcitonin TSH 2.41 Cortisol Urine Color Urine Clarity Urine pH Ur Specific [place] Urine Protein Urine Glucose (UA) Urine Ketones Urine Occult Blood Urine Nitrite Urine Bilirubin Urine Urobilinogen Ur Leukocyte Esterase Urine RBC Urine WBC Ur Squamous Epith Cells Urine Bacteria Hyaline Casts Urine Mucus COVID-19 (YAYO) MRSA (PCR) POC Glucose 132 H 06/04/19 06/04/19 06/04/19 00:22 00:22 00:22 WBC RBC Hgb Hct MCV MCH MCHC RDW Std Deviation RDW Coeff of Emilee Plt Count MPV Immature Gran % (Auto) Neut % (Auto) Lymph % (Auto) [place] % (Auto) Eos % (Auto) Baso % (Auto) Absolute Neuts (auto) Absolute Lymphs (auto) Nucleated RBC % Differential Comment Diff Path Review Platelet Estimate Plt Morphology Comment RBC Morphology Polychromasia Hypochromasia Anisocytosis Macrocytosis Sodium 139 Potassium 3.7 Chloride 105 Carbon Dioxide 30.0 Anion Gap 4 L BUN 18 Creatinine 0.30 L Estim Creat Clear Calc 377.19 Est GFR (MDRD) Af Amer 436 Est GFR (MDRD) Non-Af 361 BUN/Creatinine Ratio 60.4 H Glucose 129 H Lactic Acid 1.5 Calcium 8.9 Phosphorus Magnesium Ferritin Total Bilirubin 0.10 L AST 24 ALT 29 Alkaline Phosphatase 184 H Lactate Dehydrogenase C-React Prot Ext Range Total Protein 7.8 Albumin 2.9 L Globulin 4.9 H Albumin/Globulin Ratio 0.6 L Lipase Procalcitonin TSH Cortisol 20.30 Urine Color Urine Clarity Urine pH Ur Specific [place] Urine Protein Urine Glucose (UA) Urine Ketones Urine Occult Blood Urine Nitrite Urine Bilirubin Urine Urobilinogen Ur Leukocyte Esterase Urine RBC Urine WBC Ur Squamous Epith Cells Urine Bacteria Hyaline Casts Urine Mucus COVID-19 (YAYO) MRSA (PCR) POC Glucose 06/04/19 06/04/19 06/04/19 00:22 00:22 00:22 WBC RBC Hgb Hct MCV MCH MCHC RDW Std Deviation RDW Coeff of Emilee Plt Count MPV Immature Gran % (Auto) Neut % (Auto) Lymph % (Auto) [place] % (Auto) Eos % (Auto) Baso % (Auto) Absolute Neuts (auto) Absolute Lymphs (auto) Nucleated RBC % Differential Comment Diff Path Review Platelet Estimate Plt Morphology Comment RBC Morphology Polychromasia Hypochromasia Anisocytosis Macrocytosis Sodium Potassium Chloride Carbon Dioxide Anion Gap BUN Creatinine Estim Creat Clear Calc Est GFR (MDRD) Af Amer Est GFR (MDRD) Non-Af BUN/Creatinine Ratio Glucose Lactic Acid Calcium Phosphorus 4.0 Magnesium 2.0 Ferritin 81 Total Bilirubin AST ALT Alkaline Phosphatase Lactate Dehydrogenase 202 C-React Prot Ext Range 20.10 H Total Protein Albumin Globulin Albumin/Globulin Ratio Lipase 336 Procalcitonin 0.04 TSH Cortisol Urine Color Urine Clarity Urine pH Ur Specific [place] Urine Protein Urine Glucose (UA) Urine Ketones Urine Occult Blood Urine Nitrite Urine Bilirubin Urine Urobilinogen Ur Leukocyte Esterase Urine RBC Urine WBC Ur Squamous Epith Cells Urine Bacteria Hyaline Casts Urine Mucus COVID-19 (YAYO) MRSA (PCR) POC Glucose 06/04/19 06/04/19 06/04/19 00:41 02:40 03:30 WBC 1.9 L RBC 2.88 L Hgb 8.1 L Hct 26.4 L MCV 91.7 MCH 28.1 MCHC 30.7 L RDW Std Deviation 53.2 H RDW Coeff of Emilee 16.1 H Plt Count 50 L* MPV 11.7 Immature Gran % (Auto) 0.000 Neut % (Auto) 44.1 L Lymph % (Auto) 41.9 H [place] % (Auto) 10.2 H Eos % (Auto) 3.8 Baso % (Auto) 0.0 Absolute Neuts (auto) 0.8 L Absolute Lymphs (auto) 0.78 L Nucleated RBC % 0 Differential Comment Diff Path Review May foll Platelet Estimate MKD DEC Plt Morphology Comment RBC Morphology Polychromasia RARE Hypochromasia 1+ Anisocytosis 1+ Macrocytosis Sodium Potassium Chloride Carbon Dioxide Anion Gap BUN Creatinine Estim Creat Clear Calc Est GFR (MDRD) Af Amer Est GFR (MDRD) Non-Af BUN/Creatinine Ratio Glucose Lactic Acid Calcium Phosphorus Magnesium Ferritin Total Bilirubin AST ALT Alkaline Phosphatase Lactate Dehydrogenase C-React Prot Ext Range Total Protein Albumin Globulin Albumin/Globulin Ratio Lipase Procalcitonin TSH Cortisol Urine Color Yellow Urine Clarity Sl. Cloudy Urine pH 5.0 Ur Specific [place] 1.025 Urine Protein 30 H Urine Glucose (UA) Normal Urine Ketones 5 H Urine Occult Blood 10 H Urine Nitrite Negative Urine Bilirubin Negative Urine Urobilinogen Normal Ur Leukocyte Esterase Negative Urine RBC 0-5 SEEN Urine WBC 0-5 SEEN Ur Squamous Epith Cells 0 SEEN Urine Bacteria 0 SEEN Hyaline Casts 25-50 SEEN Urine Mucus 0 SEEN COVID-19 (YAYO) Pending MRSA (PCR) POC Glucose 06/04/19 06/04/19 03:30 03:45 WBC RBC Hgb Hct MCV MCH MCHC RDW Std Deviation RDW Coeff of Emilee Plt Count MPV Immature Gran % (Auto) Neut % (Auto) Lymph % (Auto) [place] % (Auto) Eos % (Auto) Baso % (Auto) Absolute Neuts (auto) Absolute Lymphs (auto) Nucleated RBC % Differential Comment Diff Path Review Platelet Estimate Plt Morphology Comment RBC Morphology Polychromasia Hypochromasia Anisocytosis Macrocytosis Sodium 141 Potassium 3.7 Chloride 109 H Carbon Dioxide 28.0 Anion Gap 4 L BUN 14 Creatinine 0.22 L Estim Creat Clear Calc 530.61 Est GFR (MDRD) Af Amer 626 Est GFR (MDRD) Non-Af 517 BUN/Creatinine Ratio 64.2 H Glucose 142 H Lactic Acid Calcium 7.3 L Phosphorus Magnesium Ferritin Total Bilirubin < 0.10 L AST 21 ALT 24 Alkaline Phosphatase 158 H Lactate Dehydrogenase C-React Prot Ext Range Total Protein 6.5 Albumin 2.4 L Globulin 4.1 Albumin/Globulin Ratio 0.6 L Lipase Procalcitonin TSH Cortisol Urine Color Urine Clarity Urine pH Ur Specific [place] Urine Protein Urine Glucose (UA) Urine Ketones Urine Occult Blood Urine Nitrite Urine Bilirubin Urine Urobilinogen Ur Leukocyte Esterase Urine RBC Urine WBC Ur Squamous Epith Cells Urine Bacteria Hyaline Casts Urine Mucus COVID-19 (YAYO) MRSA (PCR) Negative POC Glucose Microbiology 06/04/19 11:20 Sputum, Induced/Lukens Gram Stain - Final 06/04/19 11:20 Sputum, Induced/Lukens Respiratory Culture - Preliminary Gram negative lyn Mixed Culture 06/04/19 04:00 Urine Catheter - Augustin Urine Culture - Preliminary Culture exhibits no growth. 06/04/19 04:00 Stool Enteric Bacteriology - Final 06/04/19 01:35 Mucosa - Other Respiratory Panel (PCR) - Final 06/04/19 04:00 Stool C. difficile DNA Amplification - Final 06/04/19 04:00 Urine Catheter - Augustin Streptococcus pneumoniae Antigen (M - Final 06/04/19 04:00 Urine Catheter - Augustin Legionella Antigen - Final Medical Necessity - Tobacco Use Smoking Status: Never smoker Tobacco Use: Non-smoker Assessment/Plan All Active Problems (Last Reviewed 03/24/19 @ 11:39 by Bella Angela) Severe sepsis (Acute) Pneumonia involving left lung (Acute) Hypothermia due to non-environmental cause (Acute) Sinus bradycardia by electrocardiogram (Acute) Acute and chronic respiratory failure with hypoxia (Acute) Hypotension (Acute) Septic shock (Acute) Seizure disorder (Acute) Hypokalemia (Resolved) Acute respiratory failure with hypoxia (Resolved) C. difficile colitis (Resolved) C. difficile colitis (Resolved) GJ malfunction (Resolved) Pneumonia (Resolved) Preop cardiovascular exam (Resolved) Sepsis (Resolved) Severe sepsis (Ruled-out) Viral syndrome (Ruled-out) RECOMMENDATIONS: 1. Continue mechanical ventilatory support. Attempt to wean PEEP through the day 2. Continue broad-spectrum antibiotics for now. Okay to discontinue vancomycin 3. Wean FiO2 to maintain oxygen saturations at or above 90%. 4. Monitor blood pressures closely. Maintain a mean arterial pressure at or above 65 mmHg. 5. Continue tube feeds 6. Continue appropriate ICU prophylaxis. IMPRESSIONS: 1. Septic shock secondary to probable gram-negative pneumonia Concern for underlying pulmonary infectious process. Continue mechanical ventilatory support and wean as tolerated. Patient's MRSA is negative and gram- negative's have been noted in sputum. Likely okay to discontinue vancomycin. Continue Levophed and wean to maintain a mean arterial pressure at or above 65 mmHg. Maintain COVID precautions, pending results of testing. 2. Acute on chronic respiratory failure Continue current supportive measures with mechanical ventilatory support and wean FiO2 to maintain oxygen saturations at or above 90%. Attempt to wean PEEP to 5. Continue empiric antimicrobials, pending infectious work-up. 3. Bradycardia Improving. Likely secondary to the patient's presenting sepsis syndrome and hypothermia. The patient's bradycardia appears to be resolving as he becomes euthermic. 4. 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 Continue home medications as indicated. Suspect pancytopenia is secondary to underlying infection. We will plan to continue to monitor daily. TIME: 33 minutes of critical care time, independent of procedures, was spent ad dressing the patient's septic shock, acute on chronic respiratory failure, bradycardia, review of all data and collaboration with the care team. (8 AM to 10 AM) [phone] [id number] Critical care first hour
[2019-06-05 11:10] LABS: Pathologist Review Reviewed
[2019-06-05] MEDS: Vital AF 1.2 Cal Liquid 1,000 ML 55 ML GT (20:00)
[2019-06-06] VITALS (41 sets, daily range): BP systolic 88–124; BP diastolic 61–87; PULSE 52–87; RESP 10–18; TEMP 36.2–37.7; O2SAT 5–99; BMI 23.6
[2019-06-06] MEDS: Metoclopramide 10 MG Tablet GT ×3 (01:01→18:02)
[2019-06-06] MEDS: Baclofen 10 MG Tablet 20 MG GT ×4 (03:31→21:35)
[2019-06-06] MEDS: Gabapentin 100 MG Capsule 500 MG PO ×4 (03:32→21:35)
[2019-06-06] MEDS: 0.9% Saline Lock 10 ML Syringe IV (03:51)
[2019-06-06 05:55] LABS: Absolute Lymphocyte Count 0.96 X10^3/uL (0.83-4.51); Absolute Neutrophil Count 1.7 X10^3/uL (2.0-7.7); Eosinophil# 0.11 X10^3/uL; Eosinophils% 3.4 % (0-5); Hematocrit 25.6 % (40-54); Hemoglobin 7.9 g/dL (13.0-16.5); Lymphocyte # 0.96 X10^3/ul (4.0); Lymphocyte % 29.7 % (19-41); Mean Corp Hgb Conc 30.9 g/dL (32-36); Mean Corpuscular Hgb 28.5 pg (27.0-32.0); Mean Corpuscular Volume 92.4 fL (80-94); Mean Platelet Vol. 12.7 fl (6.2-12.0); Monocyte# 0.47 X10^3/uL; Monocyte% 14.6 % (0-10); NRBC Flagged by Analyzer 0 % (0-5); Neutrophil # 1.67 X10^3/uL (2.7-7.7); Neutrophil % 51.7 % (47-70); POSITIVE COUNT YES; Platelet Count 66 K/mm3 (150-450); RBC Distribution Width CV 16.6 % (11.6-14.6); RBC Distribution Width SD 56.7 fl (35.1-43.9); Red Blood Count 2.77 M/mm3 (4.6-6.2); White Blood Count 3.2 K/mm3 (4.4-11.0)
[2019-06-06 06:02] LABS: Anion Gap 4 (5-15); BUN 13 mg/dL (7-18); BUN/Creat Ratio 19.1 RATIO (10-20); Calcium,Total 7.9 mg/dL (8.5-10.1); Chloride 117 mmol/L (98-107); Creatinine, Serum 0.68 mg/dL (0.70-1.30); EST Glomerular Filtration Rate 139 mL/min (>60); Est Glom Filt Rate - Afr Amer 168 mL/min (>60); Estimated Creatinine Clearance 172.93 ml/min; Glucose 94 mg/dL (74-106); Magnesium 1.8 mg/dL (1.6-2.6); Phosphorus 3.6 mg/dL (2.5-4.9); Potassium 3.5 mmol/L (3.5-5.1); Sodium Level 146 mmol/L (136-145)
--- NOTE | 2019-06-06 07:47 | PN_ITS ---
Subjective: Patient did okay overnight. Patient reportedly is more interactive with the nursing staff and smiling intermittently. Patient tolerating tube feeds. No bleeding complications have been reported by nursing. General: Alert, Non-Cooperative, - - Cerebral palsy phenotype HEENT: Atraumatic, PERRLA, EOMI, Normocephalic, - - No scleral icterus or injection noted Oral: Moist Mucosa, No Gingival or Mucosal Lesions/ Ulcerations, - - Gingival hyperplasia Neck: Supple, No JVD, No Nodes, Trachea Midline Lungs: No rhonchi - Coarse breath sounds, No wheeze, No rales, Diminished Cardiovascular: Regular rate, Regular Rhythm, Normal S1, Normal S2, No murmurs, No rub noted, No Gallop Abdomen: Bowel Sounds Present, Soft, Non Tender, Non-Distended, Obese, - - Ostomy and [place] button are clean, dry and intact Extremities: No cyanosis, Capillary Refill Less than 3 Seconds, Edema Skin: No rashes, No breakdown Musculoskeletal: No Tenderness to Palpation of Joints or Extremities, - - Multiple contractures appreciated Lymphatic: No Cervical, Supraclavicular, or Inguinal Adenopathy Neurological: - - Grossly unchanged compared to previous. Does track more with his eyes compared to previous Psych/Mental Status: Flat Affect Vital Signs Temp Pulse Resp BP Pulse Ox 36.2 C L 85 12 96/67 99 06/06/19 07:00 06/06/19 07:09 06/06/19 07:02 06/06/19 07:00 06/06/19 07:00 Oxygen Flow Rate (L/min) 35 Oxygen Delivery Method Mechanical Ventilator Weight: 83.3 kg Body Mass Index (BMI) 23.1 Finger Stick Blood Glucose 132 Intake and Output for Last 24 Hours 06/04/19 06/05/19 06/06/19 23:59 23:59 23:59 Intake Total 6672.55 / 6732.55 5088.0 / 5088.0 609 / 609 Output Total 1650 / 1650 1575 / 2475 1350 / 1350 Balance 5022.55 / 5082.55 3513.0 / 2613.0 -741 / -741 Labs (Last 48 Hours) 06/04/19 06/04/19 06/04/19 02:40 03:30 03:45 WBC RBC Hgb Hct MCV MCH MCHC RDW Std Deviation RDW Coeff of Emilee Plt Count MPV Immature Gran % (Auto) Neut % (Auto) Lymph % (Auto) [place] % (Auto) Eos % (Auto) Baso % (Auto) Absolute Neuts (auto) Absolute Lymphs (auto) Nucleated RBC % Diff Path Review Reviewed Sodium Potassium Chloride Carbon Dioxide Anion Gap BUN Creatinine Estim Creat Clear Calc Est GFR (MDRD) Af Amer Est GFR (MDRD) Non-Af BUN/Creatinine Ratio Glucose Calcium Phosphorus Magnesium COVID-19 (YAYO) Pending MRSA (PCR) Negative 06/06/19 06/06/19 03:50 03:50 WBC 3.2 L RBC 2.77 L Hgb 7.9 L Hct 25.6 L MCV 92.4 MCH 28.5 MCHC 30.9 L RDW Std Deviation 56.7 H RDW Coeff of Emilee 16.6 H Plt Count 66 L MPV 12.7 H Immature Gran % (Auto) 0.600 Neut % (Auto) 51.7 Lymph % (Auto) 29.7 [place] % (Auto) 14.6 H Eos % (Auto) 3.4 Baso % (Auto) 0.0 Absolute Neuts (auto) 1.7 L Absolute Lymphs (auto) 0.96 Nucleated RBC % 0 Diff Path Review Sodium 146 H Potassium 3.5 Chloride 117 H Carbon Dioxide 25.0 Anion Gap 4 L BUN 13 Creatinine 0.68 L Estim Creat Clear Calc 172.93 Est GFR (MDRD) Af Amer 168 Est GFR (MDRD) Non-Af 139 BUN/Creatinine Ratio 19.1 Glucose 94 Calcium 7.9 L Phosphorus 3.6 Magnesium 1.8 COVID-19 (YAYO) MRSA (PCR) Microbiology 06/04/19 11:20 Sputum, Induced/Lukens Gram Stain - Final 06/04/19 11:20 Sputum, Induced/Lukens Respiratory Culture - Preliminary Gram negative lyn Mixed Culture 06/04/19 04:00 Urine Catheter - Augustin Urine Culture - Preliminary Culture exhibits no growth. 06/04/19 04:00 Stool Enteric Bacteriology - Final 06/04/19 01:35 Mucosa - Other Respiratory Panel (PCR) - Final 06/04/19 04:00 Stool C. difficile DNA Amplification - Final 06/04/19 04:00 Urine Catheter - Augustin Streptococcus pneumoniae Antigen (M - Final 06/04/19 04:00 Urine Catheter - Augustin Legionella Antigen - Final Medical Necessity - Tobacco Use Smoking Status: Never smoker Tobacco Use: Non-smoker Assessment/Plan All Active Problems (Last Reviewed 03/24/19 @ 11:39 by Bella Angela) Severe sepsis (Acute) Pneumonia involving left lung (Acute) Hypothermia due to non-environmental cause (Acute) Sinus bradycardia by electrocardiogram (Acute) Acute and chronic respiratory failure with hypoxia (Acute) Hypotension (Acute) Septic shock (Acute) Seizure disorder (Acute) Hypokalemia (Resolved) Acute respiratory failure with hypoxia (Resolved) C. difficile colitis (Resolved) C. difficile colitis (Resolved) GJ malfunction (Resolved) Pneumonia (Resolved) Preop cardiovascular exam (Resolved) Sepsis (Resolved) Severe sepsis (Ruled-out) Viral syndrome (Ruled-out) RECOMMENDATIONS: 1. Continue mechanical ventilatory support. Wean PEEP to 5 2. Continue broad-spectrum antibiotics for now. Await gram-negative in sputum results 3. Wean FiO2 to maintain oxygen saturations at or above 90%. 4. Monitor blood pressures closely. Maintain a mean arterial pressure at or above 65 mmHg. 5. Continue tube feeds 6. Continue appropriate ICU prophylaxis. IMPRESSIONS: 1. Septic shock secondary to probable gram-negative pneumonia Concern for underlying pulmonary infectious process. Continue mechanical ventilatory support and wean as tolerated. Some concern for Pseudomonas as an etiology. Patient does have pancytopenia, but no bleeding complications have been reported. Maintain a mean arterial pressure at or above 65 mmHg. Maintain COVID precautions, pending results of testing. 2. Acute on chronic respiratory failure Continue current supportive measures with mechanical ventilatory support and wean FiO2 to maintain oxygen saturations at or above 90%. PEEP weaned to 5. Await response. Continue empiric antimicrobials, pending infectious work-up. 3. Bradycardia Improving. Likely secondary to the patient's presenting sepsis syndrome and hypothermia. The patient's bradycardia appears to be resolving as he becomes euthermic. 4. Baseline spastic quadriplegia/cerebral palsy/seizure disorder/panc ytopenia Complicates care, management, recovery and prognosis. Continue home medications as indicated. Suspect pancytopenia is secondary to underlying infection. We will plan to continue to monitor daily. TIME: 33 minutes of critical care time, independent of procedures, was spent addressing the patient's septic shock, acute on chronic respiratory failure, bradycardia, review of all data and collaboration with the care team. (6:30 AM to 7:30 AM) [phone] [id number] Critical care first hour
[2019-06-06] MEDS: Chlorhexidine 15 ML PO ×2 (10:11→21:35)
[2019-06-06] MEDS: Ferrous Sulfate 300 MG/5 ML UDC GT (10:11)
[2019-06-06] MEDS: Lansoprazole 15 MG Capsule.DR GT ×2 (10:11→21:34)
[2019-06-06] MEDS: Loratadine 10 MG Tablet GT (10:11)
[2019-06-06] MEDS: Doxazosin 1 MG Tablet 2 MG GT (10:11)
[2019-06-06] MEDS: Enoxaparin 40 MG/0.4 ML Syringe SC (10:12)
[2019-06-06] MEDS: Ascorbic Acid 500 MG Tablet GT (10:13)
[2019-06-06] MEDS: Phenobarbital 20 MG/5 ML UDC 60 MG GT ×2 (10:13→21:35)
[2019-06-06] MEDS: Ipratropium/Albuterol Sulfate 3 ML AMPUL.NEB INHALATION ×2 (11:23→19:04)
--- NOTE | 2019-06-06 12:24 | CASEMGMT ---
Social Work Note SW participated in ICU Rounds. Pt remains intubated. Plan: Return home with parents and resumption of services Veronica Oleary [employer] WORK[employer], [employer]
[2019-06-06] MEDS: Jevity 1.5 1,000 ML 50 ML GT (13:30)
--- NOTE | 2019-06-06 14:44 | NT.THERAPY_ITS ---
Nutrition Therapy Report - History Nutrition Services has been consulted to:: Manage enteral nutrition Current diet / nutrition support order:: NPO; Vital AF 1.2 at 55mL/hour w/ 130mL H2O flush every 6 hours - Anthropometric Measurements Height:: 6 ft 2 in Weight:: 83.3 kg Body Mass Index (BMI):: 23.6 - Relevant Labs Relevant Labs:: WBC 3.2 K/mm3 (4.4-11.0) L 06/06/19 03:50 RBC 2.77 M/mm3 (4.6-6.2) L 06/06/19 03:50 Hgb 7.9 g/dL (13.0-16.5) L 06/06/19 03:50 Hct 25.6 % (40-54) L 06/06/19 03:50 MCHC 30.9 g/dL (32-36) L 06/06/19 03:50 RDW Std Deviation 56.7 fl (35.1-43.9) H 06/06/19 03:50 RDW Coeff of Emilee 16.6 % (11.6-14.6) H 06/06/19 03:50 Plt Count 66 K/mm3 (150-450) L 06/06/19 03:50 MPV 12.7 fl (6.2-12.0) H 06/06/19 03:50 Neut % (Auto) 44.1 % (47-70) L 06/04/19 03:30 Lymph % (Auto) 41.9 % (19-41) H 06/04/19 03:30 [place] % (Auto) 14.6 % (0-10) H 06/06/19 03:50 Absolute Neuts (auto) 1.7 X10^3/uL (2.0-7.7) L 06/06/19 03:50 Absolute Lymphs (auto) 0.78 X10^3/uL (0.83-4.51) L 06/04/19 03:30 Sodium 146 mmol/L (136-145) H 06/06/19 03:50 Chloride 117 mmol/L (98-107) H 06/06/19 03:50 Anion Gap 4 (5-15) L 06/06/19 03:50 Creatinine 0.68 mg/dL (0.70-1.30) L 06/06/19 03:50 BUN/Creatinine Ratio 64.2 RATIO (10-20) H 06/04/19 03:30 Glucose 142 mg/dL (74-106) H 06/04/19 03:30 Calcium 7.9 mg/dL (8.5-10.1) L 06/06/19 03:50 Total Bilirubin < 0.10 mg/dL (0.20-1.00) L 06/04/19 03:30 Alkaline Phosphatase 158 U/L (45-117) H 06/04/19 03:30 C-React Prot Ext Range 20.10 mg/L (0.0-3.0) H 06/04/19 00:22 Albumin 2.4 g/dL (3.2-5.0) L 06/04/19 03:30 Globulin 4.9 g/dL (2.2-4.2) H 06/04/19 00:22 Albumin/Globulin Ratio 0.6 RATIO (0.9-2.4) L 06/04/19 03:30 - Assessment Food / Nutrition-Related History:: Discussed in ICU rounds. Continues to require ventilator support. Remains in isolation precautions pending COVID-19 testing. Wt increase of 1.7kg since last review. Has BLE 2+pitting edema per nursing documentation. Anticipate wt loss as fluid status improves. Vital AF 1.2 was at goal rate; however pt w/ emesis this AM so tube feeds held. Pt is on Jevity 1.5 via PEG chronically. Per RE Anders- at home pt gets 70mL/hour at night and 50-65mL/hour during the day. Pt is flushed w/ 50mL every hour to avoid tolerance issues per family. Per rounds, okay to switch patient back to home tube feed formula/rates. - Nutrition Diagnosis Evidence of Malnutrition Exists:: No - Food / Nutrient Delivery Interventions Summary of nutrition intervention:: Will resume home tube feeds Nutrition support ordered as / adjusted to:: Jevity 1.5 via PEG at goal rate of 50mL/hour w/ 50mL H2O flush every hour to provide 1800 calories, 77 g protein, and 2112mL total fluid/day. Nutrition education provided?: No - MNT Monitoring Further MNT monitoring and evaluation required?: Yes - May need to adjust goal rate pending fluid status/wt fluctuations MNT Follow-up in:: 1-2 days
--- NOTE | 2019-06-06 15:35 | NURSING ---
Cici willingham applied for core temp 96.4, TA 96.7.
[2019-06-06] MEDS: Menthol/Lanolin/Calamine/Znox 113 GM Tube 1 APPLIC TOPICAL (21:35)
[2019-06-07] VITALS (41 sets, daily range): BP systolic 88–116; BP diastolic 58–85; PULSE 55–83; RESP 12–19; TEMP 35.4–37.3; O2SAT 90–98
[2019-06-07] MEDS: Metoclopramide 10 MG Tablet GT ×3 (01:43→15:49)
[2019-06-07] MEDS: Baclofen 10 MG Tablet 20 MG GT ×4 (03:18→22:53)
[2019-06-07] MEDS: Gabapentin 100 MG Capsule 500 MG PO ×4 (03:18→22:52)
[2019-06-07] MEDS: 0.9% Saline Lock 10 ML Syringe IV (04:06)
[2019-06-07] MEDS: CHLORHEXIDINE GLUC 2% CLOTH 1 EACH TOWELETTE TOPICAL (05:48)
[2019-06-07 06:12] LABS: Absolute Lymphocyte Count 1.14 X10^3/uL (0.83-4.51); Absolute Neutrophil Count 1.5 X10^3/uL (2.0-7.7); Basophil# 0.01 X10^3/uL; Basophil% 0.3 % (0-1); Eosinophil# 0.07 X10^3/uL; Eosinophils% 2.1 % (0-5); Hematocrit 26.7 % (40-54); Hemoglobin 8.3 g/dL (13.0-16.5); Lymphocyte # 1.14 X10^3/ul (4.0); Lymphocyte % 34.8 % (19-41); Mean Corp Hgb Conc 31.1 g/dL (32-36); Mean Corpuscular Hgb 28.4 pg (27.0-32.0); Mean Corpuscular Volume 91.4 fL (80-94); Mean Platelet Vol. 11.9 fl (6.2-12.0); Monocyte# 0.55 X10^3/uL; Monocyte% 16.8 % (0-10); NRBC Flagged by Analyzer 0 % (0-5); Neutrophil % 45.7 % (47-70); POSITIVE COUNT YES; Platelet Count 66 K/mm3 (150-450); RBC Distribution Width CV 16.7 % (11.6-14.6); Red Blood Count 2.92 M/mm3 (4.6-6.2); White Blood Count 3.3 K/mm3 (4.4-11.0)
[2019-06-07 06:17] LABS: Anion Gap 6 (5-15); BUN 11 mg/dL (7-18); BUN/Creat Ratio 16.4 RATIO (10-20); Calcium,Total 8.4 mg/dL (8.5-10.1); Chloride 114 mmol/L (98-107); Creatinine, Serum 0.67 mg/dL (0.70-1.30); EST Glomerular Filtration Rate 142 mL/min (>60); Est Glom Filt Rate - Afr Amer 171 mL/min (>60); Estimated Creatinine Clearance 175.08 ml/min; Glucose 108 mg/dL (74-106); Potassium 3.1 mmol/L (3.5-5.1); Sodium Level 146 mmol/L (136-145)
[2019-06-07] MEDS: Potassium Chloride 10mEq/100mL 10 MEQ/100 ML IV.SOLN. 100 MEQ IV BOLUS ×4 (07:02→10:31)
[2019-06-07] MEDS: Ipratropium/Albuterol Sulfate 3 ML AMPUL.NEB INHALATION ×3 (07:26→19:25)
--- NOTE | 2019-06-07 08:35 | PN_ITS ---
Subjective: Patient did okay overnight from a respiratory standpoint. Patient is still having minimal out of the ostomy and nursing has reported increased distention. Patient's COVID testing has come back negative. Blood pressure has remained stable General: Alert, Non-Cooperative, - - Anasarca. HEENT: Atraumatic, PERRLA, EOMI, Normocephalic, - - Macroglossia. Crowded posterior pharynx. Oral: Moist Mucosa, No Gingival or Mucosal Lesions/ Ulcerations Neck: Supple, No JVD, No Nodes, Trachea Midline Lungs: No rhonchi, No wheeze, No rales, Diminished, - - Symmetric expansion. Cardiovascular: Regular rate, Regular Rhythm, Normal S1, Normal S2, No murmurs, No rub noted, No Gallop Abdomen: Bowel Sounds Present, Soft, Non Tender, Distended, Obese Extremities: No cyanosis, Capillary Refill Less than 3 Seconds, Edema Skin: - - No change compared to previous Musculoskeletal: No Tenderness to Palpation of Joints or Extremities, - - Multiple contractures Lymphatic: No Cervical, Supraclavicular, or Inguinal Adenopathy Neurological: - - No change from previous Psych/Mental Status: Flat Affect Vital Signs Temp Pulse Resp BP Pulse Ox 37.2 C 74 12 107/75 92 06/07/19 08:00 06/07/19 08:00 06/07/19 08:00 06/07/19 08:00 06/07/19 08:00 Oxygen Flow Rate (L/min) 35 Oxygen Delivery Method Mechanical Ventilator Weight: 82 kg Body Mass Index (BMI) 23.6 Finger Stick Blood Glucose 132 Intake and Output for Last 24 Hours 06/05/19 06/06/19 06/07/19 23:59 23:59 23:59 Intake Total 5088.0 / 5088.0 1046 / 1046 468 / 468 Output Total 1575 / 2475 2475 / 2475 275 / 275 Balance 3513.0 / 2613.0 -1429 / -1429 193 / 193 Labs (Last 48 Hours) 06/04/19 06/04/19 06/06/19 02:40 03:30 03:50 WBC 3.2 L RBC 2.77 L Hgb 7.9 L Hct 25.6 L MCV 92.4 MCH 28.5 MCHC 30.9 L RDW Std Deviation 56.7 H RDW Coeff of Emilee 16.6 H Plt Count 66 L MPV 12.7 H Immature Gran % (Auto) 0.600 Neut % (Auto) 51.7 Lymph % (Auto) 29.7 [place] % (Auto) 14.6 H Eos % (Auto) 3.4 Baso % (Auto) 0.0 Absolute Neuts (auto) 1.7 L Absolute Lymphs (auto) 0.96 Nucleated RBC % 0 Diff Path Review Reviewed Sodium Potassium Chloride Carbon Dioxide Anion Gap BUN Creatinine Estim Creat Clear Calc Est GFR (MDRD) Af Amer Est GFR (MDRD) Non-Af BUN/Creatinine Ratio Glucose Calcium Phosphorus Magnesium COVID-19 (YAYO) Not Detected 06/06/19 06/07/19 06/07/19 03:50 03:45 03:45 WBC 3.3 L RBC 2.92 L Hgb 8.3 L Hct 26.7 L MCV 91.4 MCH 28.4 MCHC 31.1 L RDW Std Deviation 56.0 H RDW Coeff of Emilee 16.7 H Plt Count 66 L MPV 11.9 Immature Gran % (Auto) 0.300 Neut % (Auto) 45.7 L Lymph % (Auto) 34.8 [place] % (Auto) 16.8 H Eos % (Auto) 2.1 Baso % (Auto) 0.3 Absolute Neuts (auto) 1.5 L Absolute Lymphs (auto) 1.14 Nucleated RBC % 0 Diff Path Review Sodium 146 H 146 H Potassium 3.5 3.1 L Chloride 117 H 114 H Carbon Dioxide 25.0 26.0 Anion Gap 4 L 6 BUN 13 11 Creatinine 0.68 L 0.67 L Estim Creat Clear Calc 172.93 175.08 Est GFR (MDRD) Af Amer 168 171 Est GFR (MDRD) Non-Af 139 142 BUN/Creatinine Ratio 19.1 16.4 Glucose 94 108 H Calcium 7.9 L 8.4 L Phosphorus 3.6 Magnesium 1.8 COVID-19 (YAYO) Microbiology 06/04/19 11:20 Sputum, Induced/Lukens Gram Stain - Final 06/04/19 11:20 Sputum, Induced/Lukens Respiratory Culture - Final Pseudomonas aeroginosa Pseudomonas putida Streptococcus group C Corynebacterium striatum Coag Negative Staph 06/04/19 01:35 Blood Culture (Wb) - Right Hand Blood Culture - Preliminary No growth in 48 hours. 06/04/19 00:22 Blood Culture (Wb) - Port Blood Culture - Preliminary No growth in 48 hours. 06/04/19 04:00 Urine Catheter - Augustin Urine Culture - Final Culture exhibits no growth. Medical Necessity - Tobacco Use Smoking Status: Never smoker Tobacco Use: Non-smoker Assessment/Plan All Active Problems (Last Reviewed 03/24/19 @ 11:39 by Bella Angela) Severe sepsis (Acute) Pneumonia involving left lung (Acute) Hypothermia due to non-environmental cause (Acute) Sinus bradycardia by electrocardiogram (Acute) Acute and chronic respiratory failure with hypoxia (Acute) Hypotension (Acute) Septic shock (Acute) Seizure disorder (Acute) Hypokalemia (Resolved) Acute respiratory failure with hypoxia (Resolved) C. difficile colitis (Resolved) C. difficile colitis (Resolved) GJ malfunction (Resolved) Pneumonia (Resolved) Preop cardiovascular exam (Resolved) Sepsis (Resolved) Severe sepsis (Ruled-out) Viral syndrome (Ruled-out) RECOMMENDATIONS: 1. Continue mechanical ventilatory support. Okay to transition to home ventilator 2. Continue broad-spectrum antibiotics for now. Await gram-negative in sputum results 3. Wean FiO2 to maintain oxygen saturations at or above 90%. 4. Monitor blood pressures closely. Maintain a mean arterial pressure at or above 65 mmHg. 5. Continue tube feeds. Reinitiate home bowel regimen 6. Continue appropriate ICU prophylaxis. IMPRESSIONS: 1. Septic shock secondary to probable gram-negative pneumonia Concern for underlying pulmonary infectious process. Continue mechanical ventilatory support and wean as tolerated. Some concern for Pseudomonas as an etiology given gram-negative's, but this has not been verified. Patient does have pancytopenia, but no bleeding complications have been reported. Maintain a mean arterial pressure at or above 65 mmHg. Patient's COVID was negative. Okay to transition to home ventilator in my perspective 2. Acute on chronic respiratory failure Continue current supportive measures with mechanical ventilatory support and wean FiO2 to maintain oxygen saturations at or above 90%. PEEP weaned to 5 and tolerating well. Continue empiric antimicrobials, pending infectious work- up. 3. Bradycardia Resolved. Likely secondary to the patient's presenting sepsis syndrome and hypothermia. The patient's bradycardia appears to be resolving as he becomes euthermic. Hypokalemia will be corrected as indicated 4. 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 Continue home medications as indicated. Suspect pancytopenia is secondary to underlying infection. We will plan to continue to monitor daily. Reinitiate home bowel regimen Inpatient E&M: 00801 Subs Hosp L3
--- NOTE | 2019-06-07 10:44 | CASEMGMT ---
Social Work Note SW participated in ICU rounds. Pt's COVID test is negative. Pt will likely discharge home in the next 24-48 hours on PO antibiotics. SW to continue to follow. Veronica Oleary ELECTRICAL ASSEMBLER, AUTHORIZER
[2019-06-07] MEDS: Lansoprazole 15 MG Capsule.DR GT ×2 (11:12→22:52)
[2019-06-07] MEDS: Ascorbic Acid 500 MG Tablet GT (11:12)
[2019-06-07] MEDS: Senna Tablet 1 TABLET GT (11:12)
[2019-06-07] MEDS: Chlorhexidine 15 ML PO ×2 (11:13→22:52)
[2019-06-07] MEDS: Loratadine 10 MG Tablet GT (11:13)
[2019-06-07] MEDS: Doxazosin 1 MG Tablet 2 MG GT (11:13)
[2019-06-07] MEDS: Enoxaparin 40 MG/0.4 ML Syringe SC (11:14)
[2019-06-07] MEDS: Ferrous Sulfate 300 MG/5 ML UDC GT (11:14)
[2019-06-07] MEDS: Phenobarbital 20 MG/5 ML UDC 60 MG GT ×2 (12:03→22:52)
[2019-06-07] MEDS: Cefepime HCl 2 GM in 0.9% NS 100 ML Minibag Q12 IV ×2 (12:03→22:54)
[2019-06-07] MEDS: Polyethylene Glycol 3350 17 GM PACKET GT ×2 (15:48→22:53)
[2019-06-08] VITALS (39 sets, daily range): BP systolic 97–133; BP diastolic 65–93; PULSE 52–89; RESP 12–19; TEMP 35.7–37.2; O2SAT 89–98
[2019-06-08] MEDS: Metoclopramide 10 MG Tablet GT ×3 (02:44→17:07)
[2019-06-08] MEDS: Baclofen 10 MG Tablet 20 MG GT ×4 (03:00→21:43)
[2019-06-08] MEDS: Gabapentin 100 MG Capsule 500 MG PO ×4 (03:00→21:43)
[2019-06-08] MEDS: CHLORHEXIDINE GLUC 2% CLOTH 1 EACH TOWELETTE TOPICAL (04:00)
[2019-06-08] MEDS: Polyethylene Glycol 3350 17 GM PACKET GT ×3 (05:28→21:44)
[2019-06-08] MEDS: 0.9% Saline Lock 10 ML Syringe IV (05:30)
[2019-06-08 05:47] LABS: Absolute Lymphocyte Count 1.54 X10^3/uL (0.83-4.51); Absolute Neutrophil Count 1.8 X10^3/uL (2.0-7.7); Basophil# 0.01 X10^3/uL; Basophil% 0.2 % (0-1); Eosinophil# 0.17 X10^3/uL; Hematocrit 26.5 % (40-54); Hemoglobin 8.3 g/dL (13.0-16.5); Lymphocyte # 1.54 X10^3/ul (4.0); Lymphocyte % 36.5 % (19-41); Mean Corp Hgb Conc 31.3 g/dL (32-36); Mean Corpuscular Hgb 28.7 pg (27.0-32.0); Mean Corpuscular Volume 91.7 fL (80-94); Mean Platelet Vol. 12.1 fl (6.2-12.0); Monocyte# 0.66 X10^3/uL; Monocyte% 15.6 % (0-10); NRBC Flagged by Analyzer 0 % (0-5); Neutrophil # 1.83 X10^3/uL (2.7-7.7); Neutrophil % 43.5 % (47-70); POSITIVE COUNT YES; Platelet Count 84 K/mm3 (150-450); RBC Distribution Width CV 16.4 % (11.6-14.6); RBC Distribution Width SD 54.8 fl (35.1-43.9); Red Blood Count 2.89 M/mm3 (4.6-6.2); White Blood Count 4.2 K/mm3 (4.4-11.0)
[2019-06-08 05:56] LABS: Anion Gap 5 (5-15); BUN 12 mg/dL (7-18); BUN/Creat Ratio 20.7 RATIO (10-20); Calcium,Total 8.6 mg/dL (8.5-10.1); Chloride 117 mmol/L (98-107); Creatinine, Serum 0.58 mg/dL (0.70-1.30); EST Glomerular Filtration Rate 167 mL/min (>60); Est Glom Filt Rate - Afr Amer 202 mL/min (>60); Estimated Creatinine Clearance 202.74 ml/min; Glucose 88 mg/dL (74-106); Potassium 3.9 mmol/L (3.5-5.1); Sodium Level 149 mmol/L (136-145)
[2019-06-08] MEDS: Magnesium Citrate 300 ML 150 ML GT (06:30)
[2019-06-08] MEDS: Ipratropium/Albuterol Sulfate 3 ML AMPUL.NEB INHALATION ×3 (06:50→19:39)
--- NOTE | 2019-06-08 07:27 | PN_ITS ---
Subjective: Patient did okay overnight from a hemodynamic standpoint. However, patient continues to have high residuals and relatively low ostomy output. No r espiratory issues occurred overnight. No fevers were reported. Patient's mental status is its baseline. General: Alert, Non-Cooperative, - - No significant change in gross appearance HEENT: Atraumatic, PERRLA, EOMI, Normocephalic, - - Some crusting noted at the edge of the mouth, but no open sores. Oral: Moist Mucosa, No Gingival or Mucosal Lesions/ Ulcerations, - - Macroglossia. Neck: Supple, No JVD, No Nodes, Trachea Midline Lungs: No rhonchi, No wheeze, No rales, Diminished, - - Symmetric expansion. Cardiovascular: Regular rate, Regular Rhythm, Normal S1, Normal S2, No murmurs, No rub noted, No Gallop Abdomen: Bowel Sounds Present, Soft, Non Tender, Distended, Obese Extremities: No cyanosis, Capillary Refill Less than 3 Seconds, Edema Skin: - - No change compared to previous Musculoskeletal: No Tenderness to Palpation of Joints or Extremities Lymphatic: No Cervical, Supraclavicular, or Inguinal Adenopathy Neurological: Cranial nerves II-XII grossly intact, Neuro grossly intact, Motor Exam 5/5 strength throughout Psych/Mental Status: Flat Affect Vital Signs Temp Pulse Resp BP Pulse Ox 36.9 C 68 12 97/65 97 06/08/19 07:00 06/08/19 07:00 06/08/19 07:00 06/08/19 07:00 06/08/19 07:00 Oxygen Flow Rate (L/min) 35 Oxygen Delivery Method Mechanical Ventilator Weight: 82.7 kg Body Mass Index (BMI) 23.6 Finger Stick Blood Glucose 132 Intake and Output for Last 24 Hours 06/06/19 06/07/19 06/08/19 23:59 23:59 23:59 Intake Total 1046 / 1046 1753 / 1753 666 / 666 Output Total 2475 / 2475 1500 / 1500 600 / 600 Balance -1429 / -1429 253 / 253 66 / 66 Labs (Last 48 Hours) 06/04/19 06/07/19 06/07/19 02:40 03:45 03:45 WBC 3.3 L RBC 2.92 L Hgb 8.3 L Hct 26.7 L MCV 91.4 MCH 28.4 MCHC 31.1 L RDW Std Deviation 56.0 H RDW Coeff of Emilee 16.7 H Plt Count 66 L MPV 11.9 Immature Gran % (Auto) 0.300 Neut % (Auto) 45.7 L Lymph % (Auto) 34.8 [place] % (Auto) 16.8 H Eos % (Auto) 2.1 Baso % (Auto) 0.3 Absolute Neuts (auto) 1.5 L Absolute Lymphs (auto) 1.14 Nucleated RBC % 0 Sodium 146 H Potassium 3.1 L Chloride 114 H Carbon Dioxide 26.0 Anion Gap 6 BUN 11 Creatinine 0.67 L Estim Creat Clear Calc 175.08 Est GFR (MDRD) Af Amer 171 Est GFR (MDRD) Non-Af 142 BUN/Creatinine Ratio 16.4 Glucose 108 H Calcium 8.4 L COVID-19 (YAYO) Not Detected 06/08/19 06/08/19 04:05 04:05 WBC 4.2 L RBC 2.89 L Hgb 8.3 L Hct 26.5 L MCV 91.7 MCH 28.7 MCHC 31.3 L RDW Std Deviation 54.8 H RDW Coeff of Emilee 16.4 H Plt Count 84 L MPV 12.1 H Immature Gran % (Auto) 0.200 Neut % (Auto) 43.5 L Lymph % (Auto) 36.5 [place] % (Auto) 15.6 H Eos % (Auto) 4.0 Baso % (Auto) 0.2 Absolute Neuts (auto) 1.8 L Absolute Lymphs (auto) 1.54 Nucleated RBC % 0 Sodium 149 H Potassium 3.9 Chloride 117 H Carbon Dioxide 27.0 Anion Gap 5 BUN 12 Creatinine 0.58 L Estim Creat Clear Calc 202.74 Est GFR (MDRD) Af Amer 202 Est GFR (MDRD) Non-Af 167 BUN/Creatinine Ratio 20.7 H Glucose 88 Calcium 8.6 COVID-19 (YAYO) Microbiology 06/04/19 11:20 Sputum, Induced/Lukens Gram Stain - Final 06/04/19 11:20 Sputum, Induced/Lukens Respiratory Culture - Final Pseudomonas aeroginosa Pseudomonas putida Streptococcus group C Corynebacterium striatum Coag Negative Staph 06/04/19 01:35 Blood Culture (Wb) - Right Hand Blood Culture - Preliminary No growth in 48 hours. 06/04/19 00:22 Blood Culture (Wb) - Port Blood Culture - Preliminary No growth in 48 hours. 06/04/19 04:00 Urine Catheter - Augustin Urine Culture - Final Culture exhibits no growth. Medical Necessity - Tobacco Use Smoking Status: Never smoker Tobacco Use: Non-smoker Assessment/Plan All Active Problems (Last Reviewed 03/24/19 @ 11:39 by Bella Angela) Severe sepsis (Acute) Pneumonia involving left lung (Acute) Hypothermia due to non-environmental cause (Acute) Sinus bradycardia by electrocardiogram (Acute) Acute and chronic respiratory failure with hypoxia (Acute) Hypotension (Acute) Septic shock (Acute) Seizure disorder (Acute) Hypokalemia (Resolved) Acute respiratory failure with hypoxia (Resolved) C. difficile colitis (Resolved) C. difficile colitis (Resolved) GJ malfunction (Resolved) Pneumonia (Resolved) Preop cardiovascular exam (Resolved) Sepsis (Resolved) Severe sepsis (Ruled-out) Viral syndrome (Ruled-out) RECOMMENDATIONS: 1. Continue mechanical ventilatory support. Okay to transition to home ventilator at convenience 2. Continue cefepime to complete a 10-day course 3. Wean FiO2 to maintain oxygen saturations at or above 90%. 4. Monitor blood pressures closely. Maintain a mean arterial pressure at or above 65 mmHg. 5. Continue tube feeds. Administer mag citrate 6. Possible discharge in the next 24 to 48 hours if able to tolerate tube feeds. IMPRESSIONS: 1. Septic shock secondary to probable Pseudomonas pneumonia Concern for underlying pulmonary infectious process. Continue mechanical ventilatory support and wean as tolerated. Some concern for Pseudomonas as an etiology given gram-negative's, but this has not been verified. Patient does have pancytopenia, but no bleeding complications have been reported. Maintain a mean arterial pressure at or above 65 mmHg. Patient's COVID was negative. Okay to transition to home ventilator in my perspective 2. Acute on chronic respiratory failure Continue current supportive measures with mechanical ventilatory support and wean FiO2 to maintain oxygen saturations at or above 90%. PEEP weaned to 5 and tolerating well. Continue empiric antimicrobials, pending infectious work- up. 3. Bradycardia Resolved. Likely secondary to the patient's presenting sepsis syndrome and hypothermia. The patient's bradycardia appears to be resolving as he becomes euthermic. Hypokalemia will be corrected as indicated 4. 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 Continue home medications as indicated. Suspect pancytopenia is secondary to underlying infection. We will plan to continue to monitor daily. Patient not tolerating tube feeds, this may be secondary to an inability to have baseline laxative therapy with volume restriction. Inpatient E&M: 52643 Subs Hosp L3
--- NOTE | 2019-06-08 10:08 | CASEMGMT ---
Social Work Note SW participated in ICU rounds. Pt remains on vent, likely discharge home tomorrow. Plan: Return home with resumption of services and support of parents Veronica Oleary SENIOR ELECTRONICS ENGINEER, METAL HANGING HELPER
[2019-06-08] MEDS: Chlorhexidine 15 ML PO ×2 (10:30→21:44)
[2019-06-08] MEDS: Cefepime HCl 2 GM in 0.9% NS 100 ML Minibag Q12 IV ×2 (11:26→21:44)
[2019-06-08] MEDS: Lansoprazole 15 MG Capsule.DR GT ×2 (11:30→21:43)
[2019-06-08] MEDS: Ferrous Sulfate 300 MG/5 ML UDC GT (11:30)
[2019-06-08] MEDS: Enoxaparin 40 MG/0.4 ML Syringe SC (11:30)
[2019-06-08] MEDS: Senna Tablet 1 TABLET GT (11:31)
[2019-06-08] MEDS: Ascorbic Acid 500 MG Tablet GT (11:31)
[2019-06-08] MEDS: Loratadine 10 MG Tablet GT (11:31)
[2019-06-08] MEDS: Doxazosin 1 MG Tablet 2 MG GT (11:32)
[2019-06-08] MEDS: Phenobarbital 20 MG/5 ML UDC 60 MG GT ×2 (11:46→21:44)
[2019-06-08] MEDS: Jevity 1.5 1,000 ML 20 ML GT (22:16)
[2019-06-09] VITALS (35 sets, daily range): BP systolic 100–123; BP diastolic 70–93; PULSE 25–74; RESP 11–22; TEMP 35.6–36; O2SAT 90–98
[2019-06-09] MEDS: Metoclopramide 10 MG Tablet GT ×4 (03:00→21:33)
[2019-06-09] MEDS: Gabapentin 100 MG Capsule 500 MG PO ×4 (03:21→21:32)
[2019-06-09] MEDS: Baclofen 10 MG Tablet 20 MG GT ×4 (03:22→21:32)
[2019-06-09] MEDS: CHLORHEXIDINE GLUC 2% CLOTH 1 EACH TOWELETTE TOPICAL (03:28)
[2019-06-09 05:17] LABS: Absolute Lymphocyte Count 1.23 X10^3/uL (0.83-4.51); Absolute Neutrophil Count 1.7 X10^3/uL (2.0-7.7); Basophil# 0.01 X10^3/uL; Basophil% 0.3 % (0-1); Eosinophils% 5.4 % (0-5); Hematocrit 26.9 % (40-54); Hemoglobin 8.3 g/dL (13.0-16.5); Lymphocyte # 1.23 X10^3/ul (4.0); Lymphocyte % 33.4 % (19-41); Mean Corp Hgb Conc 30.9 g/dL (32-36); Mean Corpuscular Hgb 28.3 pg (27.0-32.0); Mean Corpuscular Volume 91.8 fL (80-94); Mean Platelet Vol. 11.2 fl (6.2-12.0); Monocyte# 0.49 X10^3/uL; Monocyte% 13.3 % (0-10); NRBC Flagged by Analyzer 0 % (0-5); Neutrophil # 1.74 X10^3/uL (2.7-7.7); Neutrophil % 47.3 % (47-70); POSITIVE COUNT YES; Platelet Count 82 K/mm3 (150-450); RBC Distribution Width CV 15.9 % (11.6-14.6); RBC Distribution Width SD 52.9 fl (35.1-43.9); Red Blood Count 2.93 M/mm3 (4.6-6.2); White Blood Count 3.7 K/mm3 (4.4-11.0)
[2019-06-09 05:25] LABS: Differential Indicated SCAN CRITERIA MET
[2019-06-09 05:29] LABS: Anion Gap 5 (5-15); BUN 12 mg/dL (7-18); BUN/Creat Ratio 26.5 RATIO (10-20); Calcium,Total 8.4 mg/dL (8.5-10.1); Chloride 111 mmol/L (98-107); Creatinine, Serum 0.45 mg/dL (0.70-1.30); EST Glomerular Filtration Rate 223 mL/min (>60); Est Glom Filt Rate - Afr Amer 270 mL/min (>60); Estimated Creatinine Clearance 256.86 ml/min; Glucose 92 mg/dL (74-106); Sodium Level 146 mmol/L (136-145)
[2019-06-09] MEDS: Polyethylene Glycol 3350 17 GM PACKET GT ×3 (06:07→22:09)
[2019-06-09] MEDS: Potassium Chloride 10mEq/100mL 10 MEQ/100 ML IV.SOLN. 100 MEQ IV BOLUS ×2 (06:23→07:57)
[2019-06-09 07:00] LABS: Differential Comment SCANNED
[2019-06-09 07:01] LABS: Platelet Estimate MOD DEC (ADEQ); Platelet Morphology LARGE
[2019-06-09] MEDS: Ipratropium/Albuterol Sulfate 3 ML AMPUL.NEB INHALATION ×3 (07:13→18:58)
--- NOTE | 2019-06-09 07:26 | PCM.PN.INT ---
Subjective: Patient did okay overnight. Patient has been tolerating tube feeds and was recently increased to 30 cc. Patient is still not interacting as much his baseline, but does track readily. No hemodynamic issues were reported overnight. Increased ostomy output has been noted. General: Alert, No apparent distress, - - Good ventilator synchrony. HEENT: Atraumatic, PERRLA, EOMI, Normocephalic, - - Better oral secretions today Oral: Moist Mucosa, No Gingival or Mucosal Lesions/ Ulcerations Neck: Supple, No JVD, No Nodes, Trachea Midline, - - Tracheostomy is clean, dry and intact Lungs: No rhonchi, No wheeze, No rales, Diminished, - - Symmetric expansion. Cardiovascular: Regular rate, Regular Rhythm, Normal S1, Normal S2, No murmurs, No rub noted, No Gallop Abdomen: Bowel Sounds Present, Soft, Non Tender, Non-Distended Extremities: No clubbing, No cyanosis, Edema Skin: No rashes, No breakdown Musculoskeletal: No Tenderness to Palpation of Joints or Extremities Lymphatic: No Cervical, Supraclavicular, or Inguinal Adenopathy Neurological: - - Neuro status is at baseline Psych/Mental Status: Flat Affect Vital Signs Temp Pulse Resp BP Pulse Ox 35.9 C L 64 12 122/83 H 92 06/09/19 05:00 06/09/19 06:00 06/09/19 06:00 06/09/19 06:00 06/09/19 06:00 Oxygen Flow Rate (L/min) 35 Oxygen Delivery Method Mechanical Ventilator Weight: 80.8 kg Body Mass Index (BMI) 23.6 Finger Stick Blood Glucose 132 Intake and Output for Last 24 Hours 06/07/19 06/08/19 06/09/19 23:59 23:59 23:59 Intake Total 1753 / 1753 1130 / 1130 421 / 421 Output Total 1500 / 1500 1025 / 1025 225 / 225 Balance 253 / 253 105 / 105 196 / 196 Labs (Last 48 Hours) 06/08/19 06/08/19 06/09/19 04:05 04:05 05:00 WBC 4.2 L 3.7 L RBC 2.89 L 2.93 L Hgb 8.3 L 8.3 L Hct 26.5 L 26.9 L MCV 91.7 91.8 MCH 28.7 28.3 MCHC 31.3 L 30.9 L RDW Std Deviation 54.8 H 52.9 H RDW Coeff of Emilee 16.4 H 15.9 H Plt Count 84 L 82 L MPV 12.1 H 11.2 Immature Gran % (Auto) 0.200 0.300 Neut % (Auto) 43.5 L 47.3 Lymph % (Auto) 36.5 33.4 [place] % (Auto) 15.6 H 13.3 H Eos % (Auto) 4.0 5.4 H Baso % (Auto) 0.2 0.3 Absolute Neuts (auto) 1.8 L 1.7 L Absolute Lymphs (auto) 1.54 1.23 Nucleated RBC % 0 0 Differential Comment SCANNED Platelet Estimate MOD DEC Plt Morphology Comment LARGE Sodium 149 H Potassium 3.9 Chloride 117 H Carbon Dioxide 27.0 Anion Gap 5 BUN 12 Creatinine 0.58 L Estim Creat Clear Calc 202.74 Est GFR (MDRD) Af Amer 202 Est GFR (MDRD) Non-Af 167 BUN/Creatinine Ratio 20.7 H Glucose 88 Calcium 8.6 06/09/19 05:00 WBC RBC Hgb Hct MCV MCH MCHC RDW Std Deviation RDW Coeff of Emilee Plt Count MPV Immature Gran % (Auto) Neut % (Auto) Lymph % (Auto) [place] % (Auto) Eos % (Auto) Baso % (Auto) Absolute Neuts (auto) Absolute Lymphs (auto) Nucleated RBC % Differential Comment Platelet Estimate Plt Morphology Comment Sodium 146 H Potassium 3.0 L Chloride 111 H Carbon Dioxide 30.0 Anion Gap 5 BUN 12 Creatinine 0.45 L Estim Creat Clear Calc 256.86 Est GFR (MDRD) Af Amer 270 Est GFR (MDRD) Non-Af 223 BUN/Creatinine Ratio 26.5 H Glucose 92 Calcium 8.4 L Microbiology 06/04/19 00:22 Blood Culture (Wb) - Port Blood Culture - Final No growth in 5 days. 06/04/19 11:20 Sputum, Induced/Lukens Gram Stain - Final 06/04/19 11:20 Sputum, Induced/Lukens Respiratory Culture - Final Pseudomonas aeroginosa Pseudomonas putida Streptococcus group C Corynebacterium striatum Coag Negative Staph 06/04/19 01:35 Blood Culture (Wb) - Right Hand Blood Culture - Preliminary No growth in 48 hours. Medical Necessity - Tobacco Use Smoking Status: Never smoker Tobacco Use: Non-smoker Assessment/Plan All Active Problems (Last Reviewed 03/24/19 @ 11:39 by Bella Angela) Severe sepsis (Acute) Pneumonia involving left lung (Acute) Hypothermia due to non-environmental cause (Acute) Sinus bradycardia by electrocardiogram (Acute) Acute and chronic respiratory failure with hypoxia (Acute) Hypotension (Acute) Septic shock (Acute) Seizure disorder (Acute) Hypokalemia (Resolved) Acute respiratory failure with hypoxia (Resolved) C. difficile colitis (Resolved) C. difficile colitis (Resolved) GJ malfunction (Resolved) Pneumonia (Resolved) Preop cardiovascular exam (Resolved) Sepsis (Resolved) Severe sepsis (Ruled-out) Viral syndrome (Ruled-out) RECOMMENDATIONS: 1. Continue mechanical ventilatory support. Okay to transition to home ventilator at convenience 2. Continue cefepime to complete a 10-day course 3. Wean FiO2 to maintain oxygen saturations at or above 90%. 4. Monitor blood pressures closely. Maintain a mean arterial pressure at or above 65 mmHg. 5. Continue tube feeds. Anticipate discharge once patient is able to tolerate baseline tube feeds 6. Possible discharge in the next 24 to 48 hours if able to tolerate tube feeds. IMPRESSIONS: 1. Septic shock secondary to probable Pseudomonas pneumonia Concern for underlying pulmonary infectious process. Continue mechanical ventilatory support and wean as tolerated. Pseudomonal pneumonia is not unexpected given patient's extended duration of tracheostomy. Patient does have pancytopenia, but no bleeding complications have been reported. Pancytopenia slowly improving. Maintain a mean arterial pressure at or above 65 mmHg. Patient's COVID was negative. Okay to transition to home ventilator in my perspective at convenience 2. Acute on chronic respiratory failure Continue current supportive measures with mechanical ventilatory support and wean FiO2 to maintain oxygen saturations at or above 90%. PEEP weaned to 5 and tolerating well. Continue empiric antimicrobials, pending infectious work-up. 3. Bradycardia Resolved. Likely secondary to the patient's presenting sepsis syndrome and hypothermia. The patient's bradycardia appears to be resolving as he becomes euthermic. Hypokalemia will be corrected as indicated 4. 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 Continue home medications as indicated. Suspect pancytopenia is secondary to underlying infection. We will plan to continue to monitor daily. Patient not tolerating tube feeds yesterday, this may be secondary to an inability to have baseline laxative therapy with volume restriction. This appears to be improving. Once patient can tolerate feedings, okay to discharge. Patient's urinary retention has resolved spontaneously. Inpatient E&M: [id number] [facility] Hosp L3
[2019-06-09] MEDS: Chlorhexidine 15 ML PO ×2 (08:30→21:34)
--- NOTE | 2019-06-09 08:35 | PN_ITS ---
Patient Problems: Active and Suspected Problems (Last Reviewed 03/24/19 @ 11:39 by Bella Angela) Severe sepsis (Acute) Pneumonia involving left lung (Acute) Hypothermia due to non-environmental cause (Acute) Sinus bradycardia by electrocardiogram (Acute) Acute and chronic respiratory failure with hypoxia (Acute) Hypotension (Acute) Septic shock (Acute) Seizure disorder (Acute) Subjective: Patient seen and examined. He was admitted with a complaint of generalised malaise, failure to thrive and bradycardia. On admission was noted to be hypothermic with axillary temperature of 91 Fahrenheit and also bradycardic with heart rate of 42. Labs showed he had pancytopenia initial lactic acid was 1.5. UA was unremarkable and chest x-ray showed a possible left perihilar infiltrate. He was started on IV fluids and broad-spectrum antimicrobials and admitted to the ICU for further management. COVID has been ruled out and sputum cultures Pseudomonas aeruginosa and Pseudomonas Sangita as well as Streptococcus and corynebacterium as well as coagulase-negative staph. Blood cultures were negative respiratory panel was negative. Urine for strep and Legionella were negative. Patient seen and examined today. He is on the ventilator via his trach. He has tube feeding going at 30 cc/h. His baseline tube feed is usually 50 cc/h. Unable to do review of systems as patient is nonverbal. Labs and vitals reviewed. Potassium is down to 3 today. He is also had pancytopenia which has been improving. Vitals/I&O's: Vital Signs Temp Pulse Resp BP Pulse Ox 96.7 F L 64 12 122/83 H 92 06/09/19 05:00 06/09/19 06:00 06/09/19 06:00 06/09/19 06:00 06/09/19 06:00 Oxygen Flow Rate (L/min) 35 Oxygen Delivery Method Mechanical Ventilator Weight: 178 lb 2.136 oz Body Mass Index (BMI) 23.6 Finger Stick Blood Glucose 132 Intake and Output for Last 24 Hours 06/07/19 06/08/19 06/09/19 23:59 23:59 23:59 Intake Total 1753 / 1753 1130 / 1130 521 / 521 Output Total 1500 / 1500 1025 / 1025 225 / 225 Balance 253 / 253 105 / 105 296 / 296 General: Alert, Cooperative, - - nonverbal HEENT: Atraumatic, PERRLA, EOMI, Normocephalic, - - macroglossia Oral: Dry Mucosa Neck: Supple, No JVD, Negative Carotid Bruits Lungs: - - decreased breath sounds bibasally, minimal crackles. on ventilator via tracheostomy Cardiovascular: Regular rate, Regular Rhythm, Normal S1, Normal S2, No murmurs Abdomen: Bowel Sounds Present, Soft, Non Tender, Non-Distended, No Hepato- splenomegaly Extremities: No clubbing, No cyanosis, No edema, Capillary Refill Less than 3 Seconds Skin: No rashes, No breakdown Musculoskeletal: No Tenderness to Palpation of Joints or Extremities, - - contractures of UEs and LEs Lymphatic: No Cervical, Supraclavicular, or Inguinal Adenopathy Neurological: - - patient nonverbal, alert, opens eyes spontaneously. Psych/Mental Status: Flat Affect Microbiology Past 72 Hours 06/04/19 01:35 Blood Culture (Wb) - Right Hand Blood Culture - Final No growth in 5 days. 06/04/19 00:22 Blood Culture (Wb) - Port Blood Culture - Final No growth in 5 days. 06/04/19 11:20 Sputum, Induced/Lukens Gram Stain - Final 06/04/19 11:20 Sputum, Induced/Lukens Respiratory Culture - Final Pseudomonas aeroginosa Pseudomonas putida Streptococcus group C Corynebacterium striatum Coag Negative Staph 06/04/19 04:00 Urine Catheter - Augustin Urine Culture - Final Culture exhibits no growth. Laboratory Results 06/09/19 05:00: WBC 3.7 L, RBC 2.93 L, Hgb 8.3 L, Hct 26.9 L, MCV 91.8, MCH 28.3, MCHC 30.9 L, RDW Std Deviation 52.9 H, RDW Coeff of Emilee 15.9 H, Plt Count 82 L, MPV 11.2, Immature Gran % (Auto) 0.300, Neut % (Auto) 47.3, Lymph % (Auto) 33.4, [place] % (Auto) 13.3 H, Eos % (Auto) 5.4 H, Baso % (Auto) 0.3, Absolute Neuts (auto) 1.7 L, Absolute Lymphs (auto) 1.23, Nucleated RBC % 0, Differential Comment SCANNED, Platelet Estimate MOD DEC, Plt Morphology Comment LARGE 06/09/19 05:00: Sodium 146 H, Potassium 3.0 L, Chloride 111 H, Carbon Dioxide 30.0, Anion Gap 5, BUN 12, Creatinine 0.45 L, Estim Creat Clear Calc 256.86, Est GFR (MDRD) Af Amer 270, Est GFR (MDRD) Non-Af 223, BUN/Creatinine Ratio 26.5 H, Glucose 92, Calcium 8.4 L Diagnostic Data Chest X-Ray 06/03/19 23:59 IMPRESSION: Possible left perihilar infiltrate, clinical correlation recommended. Lines and tubes as described. Electronically Signed: May Phillips MD at 1:22 EDT , Service support , Current Medications Acetaminophen (Tylenol) 650 mg RECTAL Q4H PRN PRN PRN Reason: Pain Score 1-10/Temp > 100.7 F Albuterol Sulfate (Ventolin Aerosols) 2.5 mg INHALATION Q2H PRN PRN PRN Reason: Dyspnea, wheezing Albuterol/Ipratropium (Duoneb) 3 ml INHALATION Q4HWA.RT [facility] Last Admin: 06/09/19 07:13 Dose: 3 ml Documented by: Ascorbic Acid (Vitamin C) 500 mg GT DAILY [facility] Last Admin: 06/08/19 11:31 Dose: 500 mg Documented by: Atropine Sulfate () 1 mg IV X1 PRN PRN Reason: sustained bradycardia <30 Baclofen (Lioresal) 20 mg GT Q6H [facility] Last Admin: 06/09/19 03:22 Dose: 20 mg Documented by: Chlorhexidine Gluconate () 15 ml PO BID [facility] Last Admin: 06/08/19 21:44 Dose: 15 ml Documented by: Chlorhexidine Gluconate () 1 each TOPICAL DAILY [facility] Last Admin: 06/09/19 03:28 Dose: 1 each Documented by: Dextrose (D50w Syringe) 0 gm IV X1 PRN; Protocol PRN Reason: Hypoglycemia Doxazosin Mesylate (Cardura) 2 mg GT DAILY [facility] Last Admin: 06/08/19 11:32 Dose: 2 mg Documented by: Ferrous Sulfate (Ferrous Sulfate Syrup) 300 mg GT DAILY [facility] Last Admin: 06/08/19 11:30 Dose: 300 mg Documented by: Gabapentin (Neurontin) 500 mg PO Q6H [facility] Last Admin: 06/09/19 03:21 Dose: 500 mg Documented by: Glucagon () 1 mg IM .X1 PRN PRN Reason: Hypoglycemia Heparin Sodium (Beef Lung) () 50 units IV UD PRN PRN Reason: Port-a-Cath (VAD)Heparin Flush Hydralazine HCl (Apresoline Iv) 10 mg IV Q4H PRN PRN PRN Reason: SBP > 160 Sodium Chloride () 250 mls @ 15 mls/hr IV .[id number] PRN PRN Reason: Saline Flush Sodium Chloride () 250 mls @ 15 mls/hr IV .[id number] PRN PRN Reason: Additional IVPB Infusion Enteral Nutritional Formula (Jevity 1.5) 1,000 mls @ 50 mls/hr GT .Q20H [facility] Last Admin: 06/09/19 07:29 Dose: Not Given Documented by: Cefepime HCl 2 gm/ Sodium (Chloride) 100 mls @ 200 mls/hr IV Q12 [facility] Stop: 06/13/19 22:01 Last Infusion: 06/08/19 22:14 Dose: Infused Documented by: Lansoprazole (Lansoprazole) 15 mg GT BID [facility] Last Admin: 06/08/19 21:43 Dose: 15 mg Documented by: Loratadine (Claritin) 10 mg GT DAILY [facility] Last Admin: 06/08/19 11:31 Dose: 10 mg Documented by: Lorazepam (Ativan) 1 mg GT Q8 PRN PRN Reason: AGITATION Last Admin: 06/04/19 19:43 Dose: 1 mg Documented by: Metoclopramide HCl (Reglan) 10 mg GT Q8H [facility] Last Admin: 06/09/19 03:00 Dose: 10 mg Documented by: Nystatin (Mycostatin Powder) 1 applic TOPICAL TID PRN PRN; Protocol PRN Reason: intertrigo Ondansetron HCl (Zofran) 4 mg IV Q8H PRN PRN PRN Reason: NAUSEA/VOMITING Phenobarbital (Phenobarbital) 60 mg GT BID [facility] Last Admin: 06/08/19 21:44 Dose: 60 mg Documented by: Polyethylene Glycol (Miralax) 17 gm GT TID [facility] Last Admin: 06/09/19 06:07 Dose: 17 gm Documented by: Prochlorperazine Edisylate (Compazine Iv) 5 mg IV Q4H PRN PRN PRN Reason: Breakthrough Nausea/Vomiting Senna (Senokot) 1 tablet GT DAILY [facility] Last Admin: 06/08/19 11:31 Dose: 1 tablet Documented by: Simethicone (Mylicon) 40 mg GT Q8H [facility] Last Admin: 06/09/19 03:00 Dose: 40 mg Documented by: Sodium Chloride () 10 - 40 ml IV UD PRN PRN Reason: Port-a-Cath (VAD) Flush Last Admin: 06/08/19 05:30 Dose: 20 ml Documented by: Sodium Chloride (0.9% Nacl (Sterile) Posiflush) 10 - 40 ml IV UD PRN PRN Reason: Port access or dressing change Sodium Chloride () 10 - 40 ml IV UD PRN PRN Reason: SALINE FLUSH STROKE Vital Signs/Narrative: Vital Signs Temp Pulse Resp BP Pulse Ox 06/09/19 06:00 64 12 122/83 H 92 06/09/19 05:00 96.7 F L 63 12 114/81 H 95 Medical Necessity - Tobacco Use Smoking Status: Never smoker Tobacco Use: Non-smoker Assessment/Plan All Active Problems (Last Reviewed 03/24/19 @ 11:39 by Bella Angela) Severe sepsis (Acute) Pneumonia involving left lung (Acute) Hypothermia due to non-environmental cause (Acute) Sinus bradycardia by electrocardiogram (Acute) Acute and chronic respiratory failure with hypoxia (Acute) Hypotension (Acute) Septic shock (Acute) Seizure disorder (Acute) Hypokalemia (Resolved) Acute respiratory failure with hypoxia (Resolved) C. difficile colitis (Resolved) C. difficile colitis (Resolved) GJ malfunction (Resolved) Pneumonia (Resolved) Preop cardiovascular exam (Resolved) Sepsis (Resolved) Severe sepsis (Ruled-out) Viral syndrome (Ruled-out) 1. Septic shock due to community acquired pneumonia * off pressors. * sputum cultured Pseudomonas * COVID screen was negative * on IV cefepime * 2. Acute on chronic hypoxic respiratory failure * on ventilator via his tracheostomy * critical care on board * titrate FiO2 to maintain sats>90% * breathing treatments with duonebs 3. Bradycardia: has resolved. was thought to be due to his hypothermia, which has now also resolved. 4.Pancytopenia * improving. wbc is 3.7 today, hb is 8.3 and platelets are 82 * thought to be due to his acute illness * will continue monitoring. 4. hypokalemia: potassium is 3 today. Being replaced. Will monitor 5. spastic quadriplegia * complicates care, prognosis and expected recovery * Nutrition: on tube feeding. on 30cc/hr of tube feeding now. goal is to get to his baseline 50cc/hr. DVT prophylaxis: SCDs Inpatient E&M: [id number] [facility] L3
[2019-06-09] MEDS: Ferrous Sulfate 300 MG/5 ML UDC GT (11:46)
[2019-06-09] MEDS: Cefepime HCl 2 GM in 0.9% NS 100 ML Minibag Q12 IV ×2 (11:46→21:33)
[2019-06-09] MEDS: Doxazosin 1 MG Tablet 2 MG GT (11:47)
[2019-06-09] MEDS: Phenobarbital 20 MG/5 ML UDC 60 MG GT ×2 (11:47→21:33)
[2019-06-09] MEDS: Loratadine 10 MG Tablet GT (11:48)
[2019-06-09] MEDS: Senna Tablet 1 TABLET GT (11:48)
[2019-06-09] MEDS: Ascorbic Acid 500 MG Tablet GT (11:48)
--- NOTE | 2019-06-09 12:10 | CASEMGMT ---
RN CM Note: 35% vent, pt was not tolerating tube feeds. Continuing current treatment and plan for dc home with his parents and services once tolerating tube feed per physician note. Ishan LEVINN RN ACM
--- NOTE | 2019-06-09 13:13 | CASEMGMT ---
Social Work SW participated in interdisciplinary rounds. Pt not ready for discharge on this date. Phone call to [facility] DD caser up and left requesting weekend phone and fax number should pt be discharged over the weekend. Will await return call. ERIC Zarco
[2019-06-09] MEDS: Lansoprazole 15 MG Capsule.DR GT ×2 (14:51→21:32)
[2019-06-10] VITALS (24 sets, daily range): BP systolic 76–130; BP diastolic 43–92; PULSE 55–92; RESP 10–29; TEMP 35.6–36.1; O2SAT 91–99
[2019-06-10] MEDS: Baclofen 10 MG Tablet 20 MG GT ×4 (06:09→23:30)
[2019-06-10] MEDS: Polyethylene Glycol 3350 17 GM PACKET GT ×3 (06:10→23:30)
[2019-06-10] MEDS: Gabapentin 100 MG Capsule 500 MG PO ×4 (06:10→23:30)
[2019-06-10 06:35] LABS: Absolute Lymphocyte Count 1.17 X10^3/uL (0.83-4.51); Basophil# 0.01 X10^3/uL; Basophil% 0.3 % (0-1); Eosinophil# 0.35 X10^3/uL; Hematocrit 27.9 % (40-54); Hemoglobin 8.6 g/dL (13.0-16.5); Lymphocyte # 1.17 X10^3/ul (4.0); Lymphocyte % 29.9 % (19-41); Mean Corp Hgb Conc 30.8 g/dL (32-36); Mean Corpuscular Hgb 28.5 pg (27.0-32.0); Mean Corpuscular Volume 92.4 fL (80-94); Monocyte# 0.35 X10^3/uL; NRBC Flagged by Analyzer 0 % (0-5); Neutrophil # 2.02 X10^3/uL (2.7-7.7); Neutrophil % 51.5 % (47-70); POSITIVE COUNT YES; Platelet Count 96 K/mm3 (150-450); RBC Distribution Width SD 52.9 fl (35.1-43.9); Red Blood Count 3.02 M/mm3 (4.6-6.2); White Blood Count 3.9 K/mm3 (4.4-11.0)
[2019-06-10 06:43] LABS: Differential Indicated SCAN CRITERIA MET
[2019-06-10 06:50] LABS: Anion Gap 6 (5-15); BUN 14 mg/dL (7-18); BUN/Creat Ratio 31.5 RATIO (10-20); Calcium,Total 8.6 mg/dL (8.5-10.1); Chloride 110 mmol/L (98-107); Creatinine, Serum 0.44 mg/dL (0.70-1.30); EST Glomerular Filtration Rate 227 mL/min (>60); Est Glom Filt Rate - Afr Amer 275 mL/min (>60); Estimated Creatinine Clearance 262.05 ml/min; Glucose 97 mg/dL (74-106); Potassium 3.5 mmol/L (3.5-5.1); Sodium Level 145 mmol/L (136-145)
[2019-06-10] MEDS: Ipratropium/Albuterol Sulfate 3 ML AMPUL.NEB INHALATION ×3 (06:50→18:42)
[2019-06-10 07:54] LABS: Platelet Estimate MOD DEC (ADEQ)
--- NOTE | 2019-06-10 07:54 | PCM.PN.INT ---
Subjective: Patient did well overnight. Patient did receive an enema and ostomy output has increased significantly. Patient was reinitiated on tube feeds. No ventilatory complications noted. No fever or hypotension were noted. No bleeding is been reported. Patient appears to be more interactive today. General: Alert, Confused, Disoriented, - - Tracking more appropriately today HEENT: Atraumatic, PERRLA, EOMI, Normocephalic Oral: Moist Mucosa, No Gingival or Mucosal Lesions/ Ulcerations Neck: Supple, No JVD, No Nodes, Trachea Midline Lungs: No rhonchi, No wheeze, No rales, Diminished, - - Symmetric expansion Cardiovascular: Regular rate, Regular Rhythm, Normal S1, Normal S2, No murmurs, No rub noted, No Gallop Abdomen: Bowel Sounds Present, Soft, Non Tender, Non-Distended, Obese, - - Ostomy and [place] button are clean, dry and intact Extremities: No clubbing, No cyanosis, Capillary Refill Less than 3 Seconds, Edema Skin: No rashes, No breakdown Musculoskeletal: No Tenderness to Palpation of Joints or Extremities Lymphatic: No Cervical, Supraclavicular, or Inguinal Adenopathy Neurological: - - No change from baseline function Psych/Mental Status: Flat Affect Vital Signs Temp Pulse Resp BP Pulse Ox 35.7 C L 64 10 L 117/85 H 94 06/10/19 04:00 06/10/19 07:00 06/10/19 07:00 06/10/19 07:00 06/10/19 07:00 Oxygen Flow Rate (L/min) 35 Oxygen Delivery Method Mechanical Ventilator Weight: 80.6 kg Body Mass Index (BMI) 23.6 Finger Stick Blood Glucose 132 Intake and Output for Last 24 Hours 06/08/19 06/09/19 06/10/19 23:59 23:59 23:59 Intake Total 1130 / 1130 1351 / 1591 510 / 510 Output Total 1025 / 1025 525 / 525 Balance 105 / 105 826 / 1066 510 / 510 Labs (Last 48 Hours) 06/09/19 06/09/19 06/10/19 05:00 05:00 06:15 WBC 3.7 L 3.9 L RBC 2.93 L 3.02 L Hgb 8.3 L 8.6 L Hct 26.9 L 27.9 L MCV 91.8 92.4 MCH 28.3 28.5 MCHC 30.9 L 30.8 L RDW Std Deviation 52.9 H 52.9 H RDW Coeff of Emilee 15.9 H 16.0 H Plt Count 82 L 96 L MPV 11.2 11.0 Immature Gran % (Auto) 0.300 0.300 Neut % (Auto) 47.3 51.5 Lymph % (Auto) 33.4 29.9 [place] % (Auto) 13.3 H 9.0 Eos % (Auto) 5.4 H 9.0 H Baso % (Auto) 0.3 0.3 Absolute Neuts (auto) 1.7 L 2.0 Absolute Lymphs (auto) 1.23 1.17 Nucleated RBC % 0 0 Differential Comment SCANNED Platelet Estimate MOD DEC Plt Morphology Comment LARGE Sodium 146 H Potassium 3.0 L Chloride 111 H Carbon Dioxide 30.0 Anion Gap 5 BUN 12 Creatinine 0.45 L Estim Creat Clear Calc 256.86 Est GFR (MDRD) Af Amer 270 Est GFR (MDRD) Non-Af 223 BUN/Creatinine Ratio 26.5 H Glucose 92 Calcium 8.4 L 06/10/19 06:15 WBC RBC Hgb Hct MCV MCH MCHC RDW Std Deviation RDW Coeff of Emilee Plt Count MPV Immature Gran % (Auto) Neut % (Auto) Lymph % (Auto) [place] % (Auto) Eos % (Auto) Baso % (Auto) Absolute Neuts (auto) Absolute Lymphs (auto) Nucleated RBC % Differential Comment Platelet Estimate Plt Morphology Comment Sodium 145 Potassium 3.5 Chloride 110 H Carbon Dioxide 29.0 Anion Gap 6 BUN 14 Creatinine 0.44 L Estim Creat Clear Calc 262.05 Est GFR (MDRD) Af Amer 275 Est GFR (MDRD) Non-Af 227 BUN/Creatinine Ratio 31.5 H Glucose 97 Calcium 8.6 Microbiology 06/04/19 01:35 Blood Culture (Wb) - Right Hand Blood Culture - Final No growth in 5 days. 06/04/19 00:22 Blood Culture (Wb) - Port Blood Culture - Final No growth in 5 days. Medical Necessity - Tobacco Use Smoking Status: Never smoker Tobacco Use: Non-smoker Assessment/Plan All Active Problems (Last Reviewed 03/24/19 @ 11:39 by Bella Angela) Severe sepsis (Acute) Pneumonia involving left lung (Acute) Hypothermia due to non-environmental cause (Acute) Sinus bradycardia by electrocardiogram (Acute) Acute and chronic respiratory failure with hypoxia (Acute) Hypotension (Acute) Septic shock (Acute) Seizure disorder (Acute) Hypokalemia (Resolved) Acute respiratory failure with hypoxia (Resolved) C. difficile colitis (Resolved) C. difficile colitis (Resolved) GJ malfunction (Resolved) Pneumonia (Resolved) Preop cardiovascular exam (Resolved) Sepsis (Resolved) Severe sepsis (Ruled-out) Viral syndrome (Ruled-out) RECOMMENDATIONS: 1. Continue mechanical ventilatory support. Okay to transition to home ventilator at convenience 2. Continue cefepime to complete a 10-day course 3. Wean FiO2 to maintain oxygen saturations at or above 90%. 4. Monitor blood pressures closely. Maintain a mean arterial pressure at or above 65 mmHg. 5. Continue tube feeds. Anticipate discharge once patient is able to tolerate baseline tube feeds 6. Possible discharge in the next 24 to 48 hours if able to tolerate tube feeds. 7. We will dose with Lasix x1 and potassium IMPRESSIONS: 1. Septic shock secondary to probable Pseudomonas pneumonia Concern for underlying pulmonary infectious process. Continue mechanical ventilatory support and wean as tolerated. Pseudomonal pneumonia is not unexpected given patient's extended duration of tracheostomy. Patient does have pancytopenia, but no bleeding complications have been reported. Pancytopenia slowly improving. Maintain a mean arterial pressure at or above 65 mmHg. Patient's COVID was negative. Okay to transition to home ventilator in my perspective at convenience. Patient is significantly positive over the course of the hospitalization, but does have incontinence. Significant edema still noted, so will treat with Lasix x1. Patient will be given potassium as current potassium is marginal. 2. Acute on chronic respiratory failure Continue current supportive measures with mechanical ventilatory support and wean FiO2 to maintain oxygen saturations at or above 90%. PEEP weaned to 5 and tolerating well. Anticipate 10 days of cefepime therapy. 3. Bradycardia Resolved. Likely secondary to the patient's presenting sepsis syndrome and hypothermia. The patient's bradycardia appears to be resolving as he becomes euthermic. Hypokalemia will be corrected as indicated 4. 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 Continue home medications as indicated. Suspect pancytopenia is secondary to underlying infection. We will plan to continue to monitor daily. Patient not tolerating tube feeds yesterday, this may be secondary to an inability to have baseline laxative therapy with volume restriction. This appears to be improving. Once patient can tolerate feedings, okay to discharge. Patient's urinary retention has resolved spontaneously. Inpatient E&M: 11932 [facility] L3
--- NOTE | 2019-06-10 09:48 | PCM.PN.HOSP ---
Patient Problems: Active and Suspected Problems (Last Reviewed 03/24/19 @ 11:39 by Bella Angela) Severe sepsis (Acute) Pneumonia involving left lung (Acute) Hypothermia due to non-environmental cause (Acute) Sinus bradycardia by electrocardiogram (Acute) Acute and chronic respiratory failure with hypoxia (Acute) Hypotension (Acute) Septic shock (Acute) Seizure disorder (Acute) Subjective: Patient seen and examined. He had increased residuals yesterday so tube feeding had to be turned down. He is now back on 30 cc/h. No acute events overnight and he has remained hemodynamically stable. Vitals/I&O's: Vital Signs Temp Pulse Resp BP Pulse Ox 96.2 F L 64 10 L 117/85 H 94 06/10/19 04:00 06/10/19 07:00 06/10/19 07:00 06/10/19 07:00 06/10/19 07:00 Oxygen Flow Rate (L/min) 35 Oxygen Delivery Method Mechanical Ventilator Weight: 177 lb 11.081 oz Body Mass Index (BMI) 23.6 Finger Stick Blood Glucose 132 Intake and Output for Last 24 Hours 06/08/19 06/09/19 06/10/19 23:59 23:59 23:59 Intake Total 1130 / 1130 1351 / 1591 510 / 510 Output Total 1025 / 1025 525 / 525 Balance 105 / 105 826 / 1066 510 / 510 General: Alert, Cooperative, - - nonverbal HEENT: Atraumatic, PERRLA, EOMI, Normocephalic, - - macroglossia Oral: Dry Mucosa Neck: Supple, No JVD, Negative Carotid Bruits Lungs: - - decreased breath sounds bibasally, minimal crackles. on ventilator via tracheostomy Cardiovascular: Regular rate, Regular Rhythm, Normal S1, Normal S2, No murmurs Abdomen: Bowel Sounds Present, Soft, Non Tender, Non-Distended, No Hepato-splenomegaly, PEG tube Extremities: No clubbing, No cyanosis, No edema, Capillary Refill Less than 3 Seconds Skin: No rashes, No breakdown Musculoskeletal: No Tenderness to Palpation of Joints or Extremities, - - contractures of UEs and LEs Lymphatic: No Cervical, Supraclavicular, or Inguinal Adenopathy Neurological: - - patient nonverbal, alert, opens eyes spontaneously. Psych/Mental Status: Flat Affect Microbiology Past 72 Hours 06/04/19 01:35 Blood Culture (Wb) - Right Hand Blood Culture - Final No growth in 5 days. 06/04/19 00:22 Blood Culture (Wb) - Port Blood Culture - Final No growth in 5 days. 06/04/19 11:20 Sputum, Induced/[place] Gram Stain - Final 06/04/19 11:20 Sputum, Induced/[place] Respiratory Culture - Final Pseudomonas aeroginosa Pseudomonas putida Streptococcus group C Corynebacterium striatum Coag Negative Staph Laboratory Results 06/10/19 06:15: WBC 3.9 L, RBC 3.02 L, Hgb 8.6 L, Hct 27.9 L, MCV 92.4, MCH 28.5, MCHC 30.8 L, RDW Std Deviation 52.9 H, RDW Coeff of Emilee 16.0 H, Plt Count 96 L, MPV 11.0, Immature Gran % (Auto) 0.300, Neut % (Auto) 51.5, Lymph % (Auto) 29.9, [place] % (Auto) 9.0, Eos % (Auto) 9.0 H, Baso % (Auto) 0.3, Absolute Neuts (auto) 2.0, Absolute Lymphs (auto) 1.17, Nucleated RBC % 0, Platelet Estimate MOD DEC 06/10/19 06:15: Sodium 145, Potassium 3.5, Chloride 110 H, Carbon Dioxide 29.0, Anion Gap 6, BUN 14, Creatinine 0.44 L, Estim Creat Clear Calc 262.05, Est GFR (MDRD) Af Amer 275, Est GFR (MDRD) Non-Af 227, BUN/Creatinine Ratio 31.5 H, Glucose 97, Calcium 8.6 Diagnostic Data Chest X-Ray 06/03/19 23:59 IMPRESSION: Possible left perihilar infiltrate, clinical correlation recommended. Lines and tubes as described. Electronically Signed: May Phillips MD at 1:22 EDT , Service support , Current Medications Acetaminophen (Tylenol) 650 mg RECTAL Q4H PRN PRN PRN Reason: Pain Score 1-10/Temp > 100.7 F Albuterol Sulfate (Ventolin Aerosols) 2.5 mg INHALATION Q2H PRN PRN PRN Reason: Dyspnea, wheezing Albuterol/Ipratropium (Duoneb) 3 ml INHALATION Q6HWA.RT [facility] Last Admin: 06/10/19 06:50 Dose: 3 ml Documented by: Ascorbic Acid (Vitamin C) 500 mg GT DAILY [facility] Last Admin: 06/09/19 11:48 Dose: 500 mg Documented by: Atropine Sulfate () 1 mg IV X1 PRN PRN Reason: sustained bradycardia <30 Baclofen (Lioresal) 20 mg GT Q6H [facility] Last Admin: 06/10/19 06:09 Dose: 20 mg Documented by: Chlorhexidine Gluconate () 15 ml PO BID [facility] Last Admin: 06/09/19 21:34 Dose: 15 ml Documented by: Chlorhexidine Gluconate () 1 each TOPICAL DAILY [facility] Last Admin: 06/09/19 03:28 Dose: 1 each Documented by: Dextrose (D50w Syringe) 0 gm IV X1 PRN; Protocol PRN Reason: Hypoglycemia Doxazosin Mesylate (Cardura) 2 mg GT DAILY [facility] Last Admin: 06/09/19 11:47 Dose: 2 mg Documented by: Ferrous Sulfate (Ferrous Sulfate Syrup) 300 mg GT DAILY [facility] Last Admin: 06/09/19 11:46 Dose: 300 mg Documented by: Gabapentin (Neurontin) 500 mg PO Q6H [facility] Last Admin: 06/10/19 06:10 Dose: 500 mg Documented by: Glucagon () 1 mg IM .X1 PRN PRN Reason: Hypoglycemia Heparin Sodium (Beef Lung) () 50 units IV UD PRN PRN Reason: Port-a-Cath (VAD)Heparin Flush Hydralazine HCl (Apresoline Iv) 10 mg IV Q4H PRN PRN PRN Reason: SBP > 160 Sodium Chloride () 250 mls @ 15 mls/hr IV .[id number] PRN PRN Reason: Saline Flush Sodium Chloride () 250 mls @ 15 mls/hr IV .[id number] PRN PRN Reason: Additional IVPB Infusion Enteral Nutritional Formula (Jevity 1.5) 1,000 mls @ 50 mls/hr GT .Q20H [facility] Last Admin: 06/10/19 05:57 Dose: Not Given Documented by: Cefepime HCl 2 gm/ Sodium (Chloride) 100 mls @ 200 mls/hr IV Q12 [facility] Stop: 06/13/19 22:01 Last Infusion: 06/10/19 05:58 Dose: Infused Documented by: Lansoprazole (Lansoprazole) 15 mg GT BID [facility] Last Admin: 06/09/19 21:32 Dose: 15 mg Documented by: Loratadine (Claritin) 10 mg GT DAILY [facility] Last Admin: 06/09/19 11:48 Dose: 10 mg Documented by: Lorazepam (Ativan) 1 mg GT Q8 PRN PRN Reason: AGITATION Last Admin: 06/04/19 19:43 Dose: 1 mg Documented by: Metoclopramide HCl (Reglan) 10 mg GT Q8H [facility] Last Admin: 06/09/19 21:33 Dose: 10 mg Documented by: Nystatin (Mycostatin Powder) 1 applic TOPICAL TID PRN PRN; Protocol PRN Reason: intertrigo Ondansetron HCl (Zofran) 4 mg IV Q8H PRN PRN PRN Reason: NAUSEA/VOMITING Phenobarbital (Phenobarbital) 60 mg GT BID [facility] Last Admin: 06/09/19 21:33 Dose: 60 mg Documented by: Polyethylene Glycol (Miralax) 17 gm GT TID [facility] Last Admin: 06/10/19 06:10 Dose: 17 gm Documented by: Prochlorperazine Edisylate (Compazine Iv) 5 mg IV Q4H PRN PRN PRN Reason: Breakthrough Nausea/Vomiting Senna (Senokot) 1 tablet GT DAILY [facility] Last Admin: 06/09/19 11:48 Dose: 1 tablet Documented by: Simethicone (Mylicon) 40 mg GT Q8H [facility] Last Admin: 06/09/19 21:32 Dose: 40 mg Documented by: Sodium Chloride () 10 - 40 ml IV UD PRN PRN Reason: Port-a-Cath (VAD) Flush Last Admin: 06/08/19 05:30 Dose: 20 ml Documented by: Sodium Chloride (0.9% Nacl (Sterile) Posiflush) 10 - 40 ml IV UD PRN PRN Reason: Port access or dressing change Sodium Chloride () 10 - 40 ml IV UD PRN PRN Reason: SALINE FLUSH STROKE Vital Signs/Narrative: Vital Signs Pulse Resp BP Pulse Ox 06/10/19 07:00 64 10 L 117/85 H 94 06/10/19 06:45 60 17 95 06/10/19 06:00 62 15 111/82 H 98 Medical Necessity - Tobacco Use Smoking Status: Never smoker Tobacco Use: Non-smoker Assessment/Plan All Active Problems (Last Reviewed 03/24/19 @ 11:39 by Bella Angela) Severe sepsis (Acute) Pneumonia involving left lung (Acute) Hypothermia due to non-environmental cause (Acute) Sinus bradycardia by electrocardiogram (Acute) Acute and chronic respiratory failure with hypoxia (Acute) Hypotension (Acute) Septic shock (Acute) Seizure disorder (Acute) Hypokalemia (Resolved) Acute respiratory failure with hypoxia (Resolved) C. difficile colitis (Resolved) C. difficile colitis (Resolved) GJ malfunction (Resolved) Pneumonia (Resolved) Preop cardiovascular exam (Resolved) Sepsis (Resolved) Severe sepsis (Ruled-out) Viral syndrome (Ruled-out) 1. Septic shock due to community acquired pneumonia off pressors. sputum cultured Pseudomonas COVID screen was negative on IV cefepime 2. Acute on chronic hypoxic respiratory failure on ventilator via his tracheostomy critical care on board titrate FiO2 to maintain sats>90% breathing treatments with duonebs 3. Bradycardia: has resolved. 4.Pancytopenia improving. wbc is 3.9, today, hb is 8.6 and platelets are 96 thought to be due to his acute illness will continue monitoring. 4. hypokalemia: potassium is 3.5 today. B 5. spastic quadriplegia complicates care, prognosis and expected recovery Nutrition: on tube feeding. still on 30cc/hr of tube feeding. goal is to get to his baseline 50cc/hr. DVT prophylaxis: SCDs Inpatient E&M: 41851 Subs Hosp L2
[2019-06-10] MEDS: Lansoprazole 15 MG Capsule.DR GT ×2 (10:06→23:30)
[2019-06-10] MEDS: Loratadine 10 MG Tablet GT (10:06)
[2019-06-10] MEDS: Senna Tablet 1 TABLET GT (10:07)
[2019-06-10] MEDS: Ascorbic Acid 500 MG Tablet GT (10:07)
[2019-06-10] MEDS: Doxazosin 1 MG Tablet 2 MG GT (10:07)
[2019-06-10] MEDS: Metoclopramide 10 MG Tablet GT ×2 (10:08→18:30)
[2019-06-10] MEDS: Phenobarbital 20 MG/5 ML UDC 60 MG GT ×2 (10:12→23:30)
[2019-06-10] MEDS: Ferrous Sulfate 300 MG/5 ML UDC GT (10:12)
[2019-06-10] MEDS: Furosemide 20 MG/2 ML VIAL IV (10:13)
[2019-06-10] MEDS: Cefepime HCl 2 GM in 0.9% NS 100 ML Minibag Q12 IV ×2 (10:13→23:31)
[2019-06-10] MEDS: CHLORHEXIDINE GLUC 2% CLOTH 1 EACH TOWELETTE TOPICAL (10:14)
[2019-06-10] MEDS: Chlorhexidine 15 ML PO ×2 (10:14→22:00)
[2019-06-10] MEDS: proCHLORPERazine 10 MG/2 ML Vial 5 MG IV (11:45)
--- NOTE | 2019-06-10 17:28 | RAD_ITS ---
STUDY: X-RAY - ABDOMEN/PELVIS REASON FOR EXAM: Male, 39 years old. Ileus. TECHNIQUE: Single AP view of the abdomen / pelvis. COMPARISON: None. FINDINGS: Normal visualized lung bases. Moderate air distention of the stomach within which there appears to be a PEG tube. No other dilated or distended loops of bowel. Probable ostomy shadow in the left lower quadrant. The visualized liver, spleen and kidneys are grossly normal in size and morphology. Normal soft tissue structures. Mild levoconvex scoliosis of the lumbar spine, otherwise normal visualized osseous structures. RAD/Abdomen Single View (Portable) IMPRESSION: Distended stomach, otherwise unremarkable GI tract. Electronically Signed: Jose Luis Aiken MD at 19:16 EDT , Service support ,
--- NOTE | 2019-06-10 20:27 | CT_ITS ---
HISTORY: SEPSIS, RESP FAILURE, BRADYCARDIA, DISTENTION, NO BM, CEREBRAL PALSY, TRACH TECHNIQUE: Helically acquired images were obtained of the abdomen and pelvis following the intravenous administration of 100 ML of Isovue-370 Iodinated contrast. 2D reformats. No oral contrast was administered. A radiation dose optimization technique was used for this scan. COMPARISON: Abdominal x-ray from about [address] scan of the abdomen and pelvis from February 03, 2019 FINDINGS: # of images incl. paperwork: [id number] LUNG BASES: This study really is almost a complete CT scan of the chest as well as abdomen. It begins at the level of the clark. There is collapse of left and right lower lobes with bilateral pleural effusions. Additional airspace disease is present within the upper lobes and the right middle lobe. The heart is enlarged. A right-sided port catheter tip is within the SVC above the right atrium. There is a scoliosis. No acute rib lesions are perceived. The study was performed the patient's arms down by his side. This decreases the overall utility of the study due to beam hardening artifact. Gynecomastia is mild CT abdomen: There is a fairly severe levoscoliosis of the thoracolumbar spine. The apex of the levoscoliosis is at the L2-L3 interspace. Degenerative disc disease with facet arthropathy is present, greater at the right, the concavity of the scoliosis. Both femoral heads and acetabula AR misshapen. The patient is likely nonweightbearing. The gallbladder is contracted with gallstones. Liver, spleen, pancreas, and adrenal glands, are normal. The kidneys are normal. The aorta is is small in luminal caliber. The patient has a transcutaneous gastrostomy tube. It appears to be within adequate position. Liquid is present within the balloon of the catheter. There is no evidence of abscess or displacement. CT pelvis: Trace abdominal ascites is present. The prostate gland is not enlarged. Bilateral inguinal hernias are present containing fat. Silly larger on the right than left. Severe fatty infiltration and atrophy is present to the paraspinous muscles and the muscles about the hips and proximal thighs.. The appendix is normal. Series 2 image 76. The bladder is normal. Left pro-abdomen colostomy. The patient has a rectum and a minimal amount of sigmoid colon. This area is filled with apparently fluid but is blind beginning similar to a Jamie pouch. Body wall edema. There is some scarring within the right anterior abdominal wall with some metal or a catheter extending away from it, however, the catheter terminates within the deep musculature of the anterior abdominal wall not communicating with the skin. CT/Abdomen/Pelvis W IV Cont ONLY IMPRESSION: Adequate position of percutaneous gastrostomy tube. Left and right lower lobe collapse with pleural effusions. Additional lung disease. Scarring within the right anterior abdominal wall with some metal and/or a broken catheter extending away from this scarring. There may be fluid centrally within the scarring. It is the same as previously. Left-sided colostomy. Bilateral inguinal hernias unchanged. Body wall edema similar. Soft tissue, likely fluid standings the rectum and the remaining portions of the sigmoid colon that have a blind ceil beginning. This is unchanged. Individualized dose optimization techniques were used for this CT. at [id number] Reported and signed by: Bakari Thacker MD Electronically Signed: Bakari Thacker MD at 23:43 EDT Tel , Service support ,
[2019-06-10] MEDS: Jevity 1.5 1,000 ML 50 ML GT (23:31)
[2019-06-11] VITALS (24 sets, daily range): BP systolic 74–113; BP diastolic 52–82; PULSE 46–108; RESP 12–22; TEMP 35.5–36.4; O2SAT 88–97
[2019-06-11] MEDS: Gabapentin 100 MG Capsule 500 MG PO ×4 (03:11→21:19)
[2019-06-11] MEDS: Baclofen 10 MG Tablet 20 MG GT ×4 (03:11→21:11)
[2019-06-11] MEDS: Metoclopramide 10 MG Tablet GT (03:11)
[2019-06-11] MEDS: Polyethylene Glycol 3350 17 GM PACKET GT ×3 (03:12→21:21)
[2019-06-11 05:43] LABS: Absolute Lymphocyte Count 1.59 X10^3/uL (0.83-4.51); Absolute Neutrophil Count 3.1 X10^3/uL (2.0-7.7); Basophil# 0.01 X10^3/uL; Basophil% 0.2 % (0-1); Eosinophil# 0.31 X10^3/uL; Eosinophils% 5.6 % (0-5); Hemoglobin 8.2 g/dL (13.0-16.5); Lymphocyte # 1.59 X10^3/ul (4.0); Lymphocyte % 28.8 % (19-41); Mean Corp Hgb Conc 30.4 g/dL (32-36); Mean Corpuscular Hgb 28.3 pg (27.0-32.0); Mean Corpuscular Volume 93.1 fL (80-94); Mean Platelet Vol. 11.5 fl (6.2-12.0); Monocyte# 0.51 X10^3/uL; Monocyte% 9.2 % (0-10); NRBC Flagged by Analyzer 0 % (0-5); Platelet Count 111 K/mm3 (150-450); RBC Distribution Width CV 16.2 % (11.6-14.6); RBC Distribution Width SD 54.1 fl (35.1-43.9); White Blood Count 5.5 K/mm3 (4.4-11.0)
[2019-06-11 05:54] LABS: Anion Gap 4 (5-15); BUN 17 mg/dL (7-18); BUN/Creat Ratio 34.1 RATIO (10-20); Calcium,Total 8.7 mg/dL (8.5-10.1); Chloride 110 mmol/L (98-107); EST Glomerular Filtration Rate 199 mL/min (>60); Est Glom Filt Rate - Afr Amer 241 mL/min (>60); Estimated Creatinine Clearance 230.61 ml/min; Glucose 84 mg/dL (74-106); Phosphorus 4.7 mg/dL (2.5-4.9); Potassium 3.5 mmol/L (3.5-5.1); Sodium Level 146 mmol/L (136-145)
[2019-06-11] MEDS: Ipratropium/Albuterol Sulfate 3 ML AMPUL.NEB INHALATION ×3 (06:56→19:00)
--- NOTE | 2019-06-11 07:54 | PN_ITS ---
Subjective: Patient did okay overnight from a respiratory standpoint. Patient continues to have difficulty tolerating tube feeds. Did obtain a surgical consult overnight leading to a CT scan of the abdomen that was unremarkable. Tube feeds were reinitiated. No fevers have been noted overnight. Patient does appear to be more interactive today. General: Alert, Non-Cooperative, - - Tracks more today. Still with an element of anasarca HEENT: Atraumatic, PERRLA, EOMI, Normocephalic Oral: Moist Mucosa, No Gingival or Mucosal Lesions/ Ulcerations Neck: Supple, No JVD, No Nodes, Trachea Midline Lungs: No wheeze, No rales, Diminished, Rhonchi - Scattered, but improved with suctioning Cardiovascular: Normal S1, Normal S2, No murmurs, Bradycardic, No rub noted, No Gallop Abdomen: Bowel Sounds Present, Soft, Non Tender, Non-Distended Extremities: No clubbing, No cyanosis, Edema Skin: - - No change compared to previous Musculoskeletal: - - Continues to have contractures Lymphatic: No Cervical, Supraclavicular, or Inguinal Adenopathy Neurological: - - Unchanged from baseline examination Psych/Mental Status: Flat Affect Vital Signs Temp Pulse Resp BP Pulse Ox 35.7 C L 46 L 12 74/52 L 97 06/11/19 07:00 06/11/19 07:00 06/11/19 07:00 06/11/19 07:00 06/11/19 07:00 Oxygen Flow Rate (L/min) 35 Oxygen Delivery Method Mechanical Ventilator Weight: 78.8 kg Body Mass Index (BMI) 23.6 Finger Stick Blood Glucose 132 Intake and Output for Last 24 Hours 06/09/19 06/10/19 06/11/19 23:59 23:59 23:59 Intake Total 1351 / 1591 1628 / 1628 362 / 362 Output Total 525 / 525 130 / 130 Balance 826 / 1066 1498 / 1498 362 / 362 Labs (Last 48 Hours) 06/10/19 06/10/19 06/11/19 06:15 06:15 05:30 WBC 3.9 L 5.5 RBC 3.02 L 2.90 L Hgb 8.6 L 8.2 L Hct 27.9 L 27.0 L MCV 92.4 93.1 MCH 28.5 28.3 MCHC 30.8 L 30.4 L RDW Std Deviation 52.9 H 54.1 H RDW Coeff of [place] 16.0 H 16.2 H Plt Count 96 L 111 L MPV 11.0 11.5 Immature Gran % (Auto) 0.300 0.200 Neut % (Auto) 51.5 56.0 Lymph % (Auto) 29.9 28.8 [place] % (Auto) 9.0 9.2 Eos % (Auto) 9.0 H 5.6 H Baso % (Auto) 0.3 0.2 Absolute Neuts (auto) 2.0 3.1 Absolute Lymphs (auto) 1.17 1.59 Nucleated RBC % 0 0 Platelet Estimate MOD DEC Sodium 145 Potassium 3.5 Chloride 110 H Carbon Dioxide 29.0 Anion Gap 6 BUN 14 Creatinine 0.44 L Estim Creat Clear Calc 262.05 Est GFR (MDRD) Af Amer 275 Est GFR (MDRD) Non-Af 227 BUN/Creatinine Ratio 31.5 H Glucose 97 Calcium 8.6 Phosphorus Magnesium 06/11/19 05:30 WBC RBC Hgb Hct MCV MCH MCHC RDW Std Deviation RDW Coeff of [place]ilee Plt Count MPV Immature Gran % (Auto) Neut % (Auto) Lymph % (Auto) [place] % (Auto) Eos % (Auto) Baso % (Auto) Absolute Neuts (auto) Absolute Lymphs (auto) Nucleated RBC % Platelet Estimate Sodium 146 H Potassium 3.5 Chloride 110 H Carbon Dioxide 32.0 Anion Gap 4 L BUN 17 Creatinine 0.50 L Estim Creat Clear Calc 230.61 Est GFR (MDRD) Af Amer 241 Est GFR (MDRD) Non-Af 199 BUN/Creatinine Ratio 34.1 H Glucose 84 Calcium 8.7 Phosphorus 4.7 Magnesium 2.0 Microbiology 06/04/19 01:35 Blood Culture (Wb) - Right Hand Blood Culture - Final No growth in 5 days. 06/04/19 00:22 Blood Culture (Wb) - Port Blood Culture - Final No growth in 5 days. Clinical Impression(s) from Imaging Studies KUB X-Ray 06/10/19 17:28 IMPRESSION: Distended stomach, otherwise unremarkable GI tract. Electronically Signed: Jose Luis Aiken MD at 19:16 EDT , Service support , Abdomen/Pelvis CT 06/10/19 20:27 IMPRESSION: Adequate position of percutaneous gastrostomy tube. Left and right lower lobe collapse with pleural effusions. Additional lung disease. Scarring within the right anterior abdominal wall with some metal and/or a broken catheter extending away from this scarring. There may be fluid centrally within the scarring. It is the same as previously. Left-sided colostomy. Bilateral inguinal hernias unchanged. Body wall edema similar. Soft tissue, likely fluid standings the rectum and the remaining portions of the sigmoid colon that have a blind ceil beginning. This is unchanged. Individualized dose optimization techniques were used for this CT. at 2344 Reported and signed by: Bakari Thacker MD Electronically Signed: Bakari Thacker MD at 23:43 EDT Tel , Service support , Medical Necessity - Tobacco Use Smoking Status: Never smoker Tobacco Use: Non-smoker Assessment/Plan All Active Problems (Last Reviewed 03/24/19 @ 11:39 by Bella Angela) Severe sepsis (Acute) Pneumonia involving left lung (Acute) Hypothermia due to non-environmental cause (Acute) Sinus bradycardia by electrocardiogram (Acute) Acute and chronic respiratory failure with hypoxia (Acute) Hypotension (Acute) Septic shock (Acute) Seizure disorder (Acute) Hypokalemia (Resolved) Acute respiratory failure with hypoxia (Resolved) C. difficile colitis (Resolved) C. difficile colitis (Resolved) GJ malfunction (Resolved) Pneumonia (Resolved) Preop cardiovascular exam (Resolved) Sepsis (Resolved) Severe sepsis (Ruled-out) Viral syndrome (Ruled-out) RECOMMENDATIONS: 1. Continue mechanical ventilatory support. Okay to transition to home ventilator at convenience 2. Continue cefepime to complete a 10-day course. Stop date added 3. Wean FiO2 to maintain oxygen saturations at or above 90%. 4. Monitor blood pressures closely. Maintain a mean arterial pressure at or above 65 mmHg. 5. Continue tube feeds per surgical recommendations 6. Possible discharge in the next 24 to 48 hours if able to tolerate tube feeds. IMPRESSIONS: 1. Septic shock secondary to probable Pseudomonas pneumonia Concern for underlying pulmonary infectious process. Continue mechanical ventilatory support and wean as tolerated. Pseudomonal pneumonia is not unexp ected given patient's extended duration of tracheostomy. Patient does have pancytopenia, but no bleeding complications have been reported. Pancytopenia slowly improving. Maintain a mean arterial pressure at or above 65 mmHg. Patient's COVID was negative. Okay to transition to home ventilator in my perspective at convenience. Patient is significantly positive over the course of the hospitalization, but does have incontinence. Patient did have an element of hypernatremia, likely associated with Lasix dosing yesterday. Patient's potassium is marginal, but do not anticipate diuretic need today. 2. Acute on chronic respiratory failure Continue current supportive measures with mechanical ventilatory support and wean FiO2 to maintain oxygen saturations at or above 90%. PEEP weaned to 5 and tolerating well. Anticipate 10 days of cefepime therapy. 3. Bradycardia Resolved. Likely secondary to the patient's presenting sepsis syndrome and hypothermia. The patient's bradycardia appears to be resolving as he becomes euthermic. Hypokalemia will be corrected as indicated 4. 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 Continue home medications as indicated. Suspect pancytopenia is secondary to underlying infection. We will plan to continue to monitor daily. Patient not tolerating tube feeds yesterday, this may be secondary to an inability to have baseline laxative therapy with volume restriction. Patient continues to have difficulty with tolerating tube feeds. Surgery was consulted yesterday. Once patient can tolerate feedings, okay to discharge. Patient's urinary retention has resolved spontaneously. Inpatient E&M: [id number] [facility] L3
--- NOTE | 2019-06-11 08:44 | PCM.PN.HOSP ---
Patient Problems: Active and Suspected Problems (Last Reviewed 03/24/19 @ 11:39 by Bella Angela) Severe sepsis (Acute) Pneumonia involving left lung (Acute) Hypothermia due to non-environmental cause (Acute) Sinus bradycardia by electrocardiogram (Acute) Acute and chronic respiratory failure with hypoxia (Acute) Hypotension (Acute) Septic shock (Acute) Seizure disorder (Acute) Subjective: Patient seen and examined. No active events overnight. He was having increased residuals yesterday, and so tube feeds was reduced to 20mls per hour. BP is down to 46, and BP was running low this morning in the 70s systolic. Sodium is 146 today. General surgery has been consulted o/a of suspicion for ileus. KUB done showed distended stomach, otherwise unremarkable GI tract. Vitals/I&O's: Vital Signs Temp Pulse Resp BP Pulse Ox 96.3 F L 46 L 12 74/52 L 97 06/11/19 07:00 06/11/19 07:00 06/11/19 07:00 06/11/19 07:00 06/11/19 07:00 Oxygen Flow Rate (L/min) 35 Oxygen Delivery Method Mechanical Ventilator Weight: 173 lb 11.588 oz Body Mass Index (BMI) 23.6 Finger Stick Blood Glucose 132 Intake and Output for Last 24 Hours 06/09/19 06/10/19 06/11/19 23:59 23:59 23:59 Intake Total 1351 / 1591 1628 / 1628 362 / 362 Output Total 525 / 525 130 / 130 175 / 175 Balance 826 / 1066 1498 / 1498 187 / 187 General: Alert, Cooperative, - - nonverbal HEENT: Atraumatic, PERRLA, EOMI, Normocephalic, - - macroglossia Oral: Dry Mucosa Neck: Supple, No JVD, Negative Carotid Bruits Lungs: - - decreased breath sounds bibasally, minimal crackles. on ventilator via tracheostomy Cardiovascular: Regular rate, Regular Rhythm, Normal S1, Normal S2, No murmurs Abdomen: Bowel Sounds Present, Soft, Non Tender, Non-Distended, No Hepato-splenomegaly, PEG tube Extremities: No clubbing, No cyanosis, No edema, Capillary Refill Less than 3 Seconds Skin: No rashes, No breakdown Musculoskeletal: No Tenderness to Palpation of Joints or Extremities, - - contractures of UEs and LEs Lymphatic: No Cervical, Supraclavicular, or Inguinal Adenopathy Neurological: - - patient nonverbal, alert, opens eyes spontaneously. Psych/Mental Status: Flat Affect Microbiology Past 72 Hours 06/04/19 01:35 Blood Culture (Wb) - Right Hand Blood Culture - Final No growth in 5 days. 06/04/19 00:22 Blood Culture (Wb) - Port Blood Culture - Final No growth in 5 days. Laboratory Results 06/11/19 05:30: WBC 5.5, RBC 2.90 L, Hgb 8.2 L, Hct 27.0 L, MCV 93.1, MCH 28.3, MCHC 30.4 L, RDW Std Deviation 54.1 H, RDW Coeff of Emilee 16.2 H, Plt Count 111 L, MPV 11.5, Immature Gran % (Auto) 0.200, Neut % (Auto) 56.0, Lymph % (Auto) 28.8, Bertie % (Auto) 9.2, Eos % (Auto) 5.6 H, Baso % (Auto) 0.2, Absolute Neuts (auto) 3.1, Absolute Lymphs (auto) 1.59, Nucleated RBC % 0 06/11/19 05:30: Sodium 146 H, Potassium 3.5, Chloride 110 H, Carbon Dioxide 32.0, Anion Gap 4 L, BUN 17, Creatinine 0.50 L, Estim Creat Clear Calc 230.61, Est GFR (MDRD) Af Amer 241, Est GFR (MDRD) Non-Af 199, BUN/Creatinine Ratio 34.1 H, Glucose 84, Calcium 8.7, Phosphorus 4.7, Magnesium 2.0 Diagnostic Data Chest X-Ray 06/03/19 23:59 IMPRESSION: Possible left perihilar infiltrate, clinical correlation recommended. Lines and tubes as described. Electronically Signed: May Phillips MD at 1:22 EDT , Service support , KUB X-Ray 06/10/19 17:28 IMPRESSION: Distended stomach, otherwise unremarkable GI tract. Electronically Signed: Jose Luis Aiken MD at 19:16 EDT , Service support , Abdomen/Pelvis CT 06/10/19 20:27 IMPRESSION: Adequate position of percutaneous gastrostomy tube. Left and right lower lobe collapse with pleural effusions. Additional lung disease. Scarring within the right anterior abdominal wall with some metal and/or a broken catheter extending away from this scarring. There may be fluid centrally within the scarring. It is the same as previously. Left-sided colostomy. Bilateral inguinal hernias unchanged. Body wall edema similar. Soft tissue, likely fluid standings the rectum and the remaining portions of the sigmoid colon that have a blind ceil beginning. This is unchanged. Individualized dose optimization techniques were used for this CT. at 2344 Reported and signed by: Bakari Thacker MD Electronically Signed: Bakari Thacker MD at 23:43 EDT Tel , Service support , Current Medications Acetaminophen (Tylenol) 650 mg RECTAL Q4H PRN PRN PRN Reason: Pain Score 1-10/Temp > 100.7 F Albuterol Sulfate (Ventolin Aerosols) 2.5 mg INHALATION Q2H PRN PRN PRN Reason: Dyspnea, wheezing Albuterol/Ipratropium (Duoneb) 3 ml INHALATION Q6HWA.RT [facility] Last Admin: 06/11/19 06:56 Dose: 3 ml Documented by: Ascorbic Acid (Vitamin C) 500 mg GT DAILY [facility] Last Admin: 06/10/19 10:07 Dose: 500 mg Documented by: Atropine Sulfate () 1 mg IV X1 PRN PRN Reason: sustained bradycardia <30 Baclofen (Lioresal) 20 mg GT Q6H [facility] Last Admin: 06/11/19 03:11 Dose: 20 mg Documented by: Chlorhexidine Gluconate () 15 ml PO BID [facility] Last Admin: 06/10/19 22:00 Dose: 15 ml Documented by: Chlorhexidine Gluconate () 1 each TOPICAL DAILY [facility] Last Admin: 06/10/19 10:14 Dose: 1 each Documented by: Dextrose (D50w Syringe) 0 gm IV X1 PRN; Protocol PRN Reason: Hypoglycemia Doxazosin Mesylate (Cardura) 2 mg GT DAILY [facility] Last Admin: 06/10/19 10:07 Dose: 2 mg Documented by: Ferrous Sulfate (Ferrous Sulfate Syrup) 300 mg GT DAILY [facility] Last Admin: 06/10/19 10:12 Dose: 300 mg Documented by: Gabapentin (Neurontin) 500 mg PO Q6H [facility] Last Admin: 06/11/19 03:11 Dose: 500 mg Documented by: Glucagon () 1 mg IM .X1 PRN PRN Reason: Hypoglycemia Heparin Sodium (Beef Lung) () 50 units IV UD PRN PRN Reason: Port-a-Cath (VAD)Heparin Flush Hydralazine HCl (Apresoline Iv) 10 mg IV Q4H PRN PRN PRN Reason: SBP > 160 Sodium Chloride () 250 mls @ 15 mls/hr IV .[id number] PRN PRN Reason: Saline Flush Sodium Chloride () 250 mls @ 15 mls/hr IV .[id number] PRN PRN Reason: Additional IVPB Infusion Enteral Nutritional Formula (Jevity 1.5) 1,000 mls @ 50 mls/hr GT .Q20H [facility] Last Admin: 06/10/19 23:31 Dose: 50 mls/hr Documented by: Cefepime HCl 2 gm/ Sodium (Chloride) 100 mls @ 200 mls/hr IV Q12 [facility] Stop: 06/13/19 22:01 Last Admin: 06/10/19 23:31 Dose: 200 mls/hr Documented by: Lansoprazole (Lansoprazole) 15 mg GT BID [facility] Last Admin: 06/10/19 23:30 Dose: 15 mg Documented by: Loratadine (Claritin) 10 mg GT DAILY [facility] Last Admin: 06/10/19 10:06 Dose: 10 mg Documented by: Lorazepam (Ativan) 1 mg GT Q8 PRN PRN Reason: AGITATION Last Admin: 06/04/19 19:43 Dose: 1 mg Documented by: Metoclopramide HCl (Reglan) 10 mg IV Q8 [facility] Nystatin (Mycostatin Powder) 1 applic TOPICAL TID PRN PRN; Protocol PRN Reason: intertrigo Ondansetron HCl (Zofran) 4 mg IV Q8H PRN PRN PRN Reason: NAUSEA/VOMITING Phenobarbital (Phenobarbital) 60 mg GT BID [facility] Last Admin: 06/10/19 23:30 Dose: 60 mg Documented by: Polyethylene Glycol (Miralax) 17 gm GT TID [facility] Last Admin: 06/11/19 03:12 Dose: 17 gm Documented by: Prochlorperazine Edisylate (Compazine Iv) 5 mg IV Q4H PRN PRN PRN Reason: Breakthrough Nausea/Vomiting Last Admin: 06/10/19 11:45 Dose: 5 mg Documented by: Senna (Senokot) 1 tablet GT DAILY [facility] Last Admin: 06/10/19 10:07 Dose: 1 tablet Documented by: Simethicone (Mylicon) 40 mg GT Q8H [facility] Last Admin: 06/11/19 03:11 Dose: 40 mg Documented by: Sodium Chloride () 10 - 40 ml IV UD PRN PRN Reason: Port-a-Cath (VAD) Flush Last Admin: 06/08/19 05:30 Dose: 20 ml Documented by: Sodium Chloride (0.9% Nacl (Sterile) Posiflush) 10 - 40 ml IV UD PRN PRN Reason: Port access or dressing change Sodium Chloride () 10 - 40 ml IV UD PRN PRN Reason: SALINE FLUSH STROKE Vital Signs/Narrative: Vital Signs Temp Pulse Resp BP Pulse Ox 06/11/19 07:00 96.3 F L 46 L 12 74/52 L 97 06/11/19 06:53 52 L 12 91 06/11/19 06:00 96.4 F L 56 L 13 79/61 L 94 06/11/19 05:20 51 L 13 92 06/11/19 05:00 96.3 F L 58 L 15 84/53 L 94 Medical Necessity - Tobacco Use Smoking Status: Never smoker Tobacco Use: Non-smoker Assessment/Plan All Active Problems (Last Reviewed 03/24/19 @ 11:39 by Bella Angela) Severe sepsis (Acute) Pneumonia involving left lung (Acute) Hypothermia due to non-environmental cause (Acute) Sinus bradycardia by electrocardiogram (Acute) Acute and chronic respiratory failure with hypoxia (Acute) Hypotension (Acute) Septic shock (Acute) Seizure disorder (Acute) Hypokalemia (Resolved) Acute respiratory failure with hypoxia (Resolved) C. difficile colitis (Resolved) C. difficile colitis (Resolved) GJ malfunction (Resolved) Pneumonia (Resolved) Preop cardiovascular exam (Resolved) Sepsis (Resolved) Severe sepsis (Ruled-out) Viral syndrome (Ruled-out) 1. Septic shock due to community acquired pneumonia off pressors. sputum cultured Pseudomonas COVID screen was negative on IV cefepime 2. Acute on chronic hypoxic respiratory failure on ventilator via his tracheostomy critical care on board titrate FiO2 to maintain sats>90% breathing treatments with duonebs 3. Bradycardia:HR is down to the 40s today. 4. Probable ileus patient's abdomen is distended, and tympanitic to percussion KUB showed distended stomach, otherwise unremarkable GI tract CT abdomen and pelvis showed left and right lower lobe collapse with pleural effusions, left sided colostomy and no evidence of ileus general surgery on board. 4.Pancytopenia improving. wbc is 5.5, today, hb is 8.2 and platelets are 111 thought to be due to his acute illness will continue monitoring. 4. hypokalemia: potassium is 3.5 5. spastic quadriplegia complicates care, prognosis and expected recovery Nutrition: on tube feeding. now on 20cc/hr. goal is to get to 50cc/hr. DVT prophylaxis: SCDs Inpatient E&M: [id number] [facility] H[facility] L3
--- NOTE | 2019-06-11 09:43 | CON.PCM_ITS ---
Reason for Consult History of Present Illness: The patient is a 39 year old M admitted to the ICU due to Pseudomonas pneumonia. Patient's past medical history for cerebral palsy, status post trach/Fracisco button/left lower quadrant colostomy. Patient has been having high residuals with his tube feeds at 30 cc per an hour which is not even his goal rate. Patient had a KUB yesterday which showed a large amount of air in the stomach. Some this was aspirated prior to getting the CT abdomen pelvis CT abdomen pelvis did not show distended stomach or small bowel or colon. Appears to be mostly gastroparesis in nature and not an ileus. Official read of CT abdomen pelvis did not comment on the stomach/small bowel or the colon except for the rectal stump from his Luna's procedure. Patient is nonverbal history obtained per nursing. Past Medical History Past Medical History (Chronic Problems): Chronic Problems (Last Reviewed 03/24/19 @ 11:39 by Bella Angela) Anemia (Chronic) Nonrheumatic mitral valve prolapse (Chronic) Iron deficiency anemia (Chronic) Chronic respiratory failure (Chronic) Cerebral palsy (Chronic) Quadriplegic Severe mental retardation Chronic constipation PEG tube Edema (Chronic) Medical History: Medical History (Last Reviewed 03/24/19 @ 11:39 by Bella Angela) Nonrheumatic mitral valve prolapse (Chronic) I34.1 Iron deficiency anemia (Chronic) D50.9 Hypokalemia (Resolved) E87.6 Chronic respiratory failure (Chronic) J96.10 Cerebral palsy (Chronic) G80.9 Quadriplegic Severe mental retardation Chronic constipation PEG tube Edema (Chronic) R60.9 Aspiration pneumonia J69.0 Debility R53.81 History of seizure disorder Z86.69 Obesity E66.9 Redundant colon Q43.[address] Z93.0 SIRS (systemic inflammatory response syndrome) R65.10 Allergies cisapride monohydrate [From Propulsid] Allergy (Verified 06/04/19 00:05) Rash codeine Adverse Reaction (Verified 06/04/19 00:05) hallucinations metronidazole [From Flagyl] Adverse Reaction (Verified 06/04/19 00:05) Rash morphine Adverse Reaction (Verified 06/04/19 00:05) Hallucinations dust Allergy (Uncoded 06/04/19 00:05) Other Home Medications: Ambulatory Orders Medication Instructions Recorded Simethicone 40MG/0.6ML [Mylicon] 40 mg GT TID 11/09/13 Pantoprazole Sodium [Protonix] 20 ml GT BID 08/09/14 Phenobarbital 60 mg GT BID 02/19/17 Cetirizine HCl [Zyrtec] 10 ml GT DAILY 02/04/18 Lactobacillus Acidophilus 1 cap GT DAILY 02/04/18 [Acidophilus] Gabapentin 500 mg GT 4X/DAY 07/14/18 metoclopramide HCl 5 mg/5 mL oral 10 mg GT TID ml 09/16/18 solution Lorazepam [Ativan] 1 mg GT Q8 PRN 10/08/18 Cholecalciferol (Vitamin D3) 5 ml GT DAILY 12/25/18 [Vitamin D3] Cough Assist 1 dose .ROUTE .MEDSUPPLY 12/25/18 Ferrous Sulfate 5 ml GT DAILY 12/25/18 Furosemide 40 mg GT DAILY PRN 12/25/18 Potassium Chloride 1.5 ml GT DAILY PRN 12/25/18 oxygen concentrator 1 dose .ROUTE .MEDSUPPLY 12/25/18 Ascorbic Acid [Vitamin C] 500 mg PO DAILY #150 mls 12/27/18 doxazosin 2 mg tablet 2 mg PO DAILY tab 03/24/19 Baclofen [Ozobax] 20 mg GT 4X/DAY 05/09/19 Lactose-Reduced Food/Fiber [Jevity 1,500 ml PO DAILY 05/09/19 1.2 [place] Liquid] Ondansetron HCl [Zofran] 5 ml PO DAILY PRN 05/09/19 Polyethylene Glycol 3350 [Miralax] 17 gm GT TID 05/09/19 Apixaban [Eliquis] 5 mg GT BID #60 tab 06/14/19 Surgical History: Surgical History (Last Reviewed 03/24/19 @ 11:39 by Bella Angela) Colostomy in place Z93.3 Heel cord lengthening bilaterally History of colostomy History of gastrostomy tube placement History of open reduction and internal fixation (ORIF) procedure Z98.890 left hip History of soft tissue release Bilateral hips and knees Status post insertion of intrathecal baclofen pump Z96.89 status post removal in March 2018. Surgical History: - - Baclofen pump, colostomy, G-tube, tracheostomy Psychiatric History: No pertinent psych hx Lives: With Family Smoking Status: Never smoker Tobacco Use: Non-smoker Alcohol: None Drugs: None - *Family History Maternal Family History: Family History (Last Reviewed 03/24/19 @ 11:39 by Bella Angela) Mother Hypertension Hepatitis C Father Hypertension Atrial fibrillation CAD (coronary artery disease) History Items: - - Mother with history of hypertension hepatitis C. Paternal Family History: Family History (Last Reviewed 03/24/19 @ 11:39 by Bella Angela) Mother Hypertension Hepatitis C Father Hypertension Atrial fibrillation CAD (coronary artery disease) History Items: - - Father with history of hypertension, coronary disease and atrial fibrillation. Review of Systems Unable to obtain accurate/complete ROS d/t: patient is nonverbal/unable to follow commands at baseline Patient Problems: Active and Suspected Problems (Last Reviewed 03/24/19 @ 11:39 by Bella Angela) Pulmonary embolism (Acute) - Physical Exam Vitals/I&O's: Vital Signs Temp Pulse Resp BP Pulse Ox 96.3 F L 46 L 12 74/52 L 97 06/11/19 07:00 06/11/19 07:00 06/11/19 07:00 06/11/19 07:00 06/11/19 07:00 Oxygen Flow Rate (L/min) 35 Oxygen Delivery Method Mechanical Ventilator Weight: 173 lb 11.588 oz Body Mass Index (BMI) 23.6 Finger Stick Blood Glucose 132 Intake and Output for Last 24 Hours 06/09/19 06/10/19 06/11/19 23:59 23:59 23:59 Intake Total 1351 / 1591 1628 / 1628 362 / 362 Output Total 525 / 525 130 / 130 175 / 175 Balance 826 / 1066 1498 / 1498 187 / 187 General: - - Patient is nonverbal/unable to follow commands?baseline Neck: - - Status post trach Cardiovascular: Regular rate Abdomen: Soft, - - Fracisco button in place, left lower quadrant colostomy with small amount of particulate matter and liquid stool, colostomy pink. Extremities: - - Contractures of all 4 extremities, baseline Neurological: - - She is unable to follow any commands?baseline Microbiology Past 72 Hours 06/04/19 01:35 Blood Culture (Wb) - Right Hand Blood Culture - Final No growth in 5 days. 06/04/19 00:22 Blood Culture (Wb) - Port Blood Culture - Final No growth in 5 days. Laboratory Results 06/11/19 05:30: WBC 5.5, RBC 2.90 L, Hgb 8.2 L, Hct 27.0 L, MCV 93.1, MCH 28.3, MCHC 30.4 L, RDW Std Deviation 54.1 H, RDW Coeff of Emilee 16.2 H, Plt Count 111 L, MPV 11.5, Immature Gran % (Auto) 0.200, Neut % (Auto) 56.0, Lymph % (Auto) 28.8, [place] % (Auto) 9.2, Eos % (Auto) 5.6 H, Baso % (Auto) 0.2, Absolute Neuts (auto) 3.1, Absolute Lymphs (auto) 1.59, Nucleated RBC % 0 06/11/19 05:30: Sodium 146 H, Potassium 3.5, Chloride 110 H, Carbon Dioxide 32.0, Anion Gap 4 L, BUN 17, Creatinine 0.50 L, Estim Creat Clear Calc 230.61, Est GFR (MDRD) Af Amer 241, Est GFR (MDRD) Non-Af 199, BUN/Creatinine Ratio 34.1 H, Glucose 84, Calcium 8.7, Phosphorus 4.7, Magnesium 2.0 Current Medications Acetaminophen (Tylenol) 650 mg RECTAL Q4H PRN PRN PRN Reason: Pain Score 1-10/Temp > 100.7 F Albuterol Sulfate (Ventolin Aerosols) 2.5 mg INHALATION Q2H PRN PRN PRN Reason: Dyspnea, wheezing Albuterol/Ipratropium (Duoneb) 3 ml INHALATION Q6HWA.RT [facility] Last Admin: 06/11/19 06:56 Dose: 3 ml Documented by: Ascorbic Acid (Vitamin C) 500 mg GT DAILY [facility] Last Admin: 06/10/19 10:07 Dose: 500 mg Documented by: Atropine Sulfate () 1 mg IV X1 PRN PRN Reason: sustained bradycardia <30 Baclofen (Lioresal) 20 mg GT Q6H [facility] Last Admin: 06/11/19 03:11 Dose: 20 mg Documented by: Chlorhexidine Gluconate () 15 ml PO BID [facility] Last Admin: 06/10/19 22:00 Dose: 15 ml Documented by: Chlorhexidine Gluconate () 1 each TOPICAL DAILY [facility] Last Admin: 06/10/19 10:14 Dose: 1 each Documented by: Dextrose (D50w Syringe) 0 gm IV X1 PRN; Protocol PRN Reason: Hypoglycemia Doxazosin Mesylate (Cardura) 2 mg GT DAILY [facility] Last Admin: 06/10/19 10:07 Dose: 2 mg Documented by: Ferrous Sulfate (Ferrous Sulfate Syrup) 300 mg GT DAILY [facility] Last Admin: 06/10/19 10:12 Dose: 300 mg Documented by: Gabapentin (Neurontin) 500 mg PO Q6H [facility] Last Admin: 06/11/19 03:11 Dose: 500 mg Documented by: Glucagon () 1 mg IM .X1 PRN PRN Reason: Hypoglycemia Heparin Sodium (Beef Lung) () 50 units IV UD PRN PRN Reason: Port-a-Cath (VAD)Heparin Flush Hydralazine HCl (Apresoline Iv) 10 mg IV Q4H PRN PRN PRN Reason: SBP > 160 Sodium Chloride () 250 mls @ 15 mls/hr IV .[id number] PRN PRN Reason: Saline Flush Sodium Chloride () 250 mls @ 15 mls/hr IV .[id number] PRN PRN Reason: Additional IVPB Infusion Enteral Nutritional Formula (Jevity 1.5) 1,000 mls @ 50 mls/hr GT .Q20H [facility] Last Admin: 06/10/19 23:31 Dose: 50 mls/hr Documented by: Cefepime HCl 2 gm/ Sodium (Chloride) 100 mls @ 200 mls/hr IV Q12 [facility] Stop: 06/13/19 22:01 Last Admin: 06/10/19 23:31 Dose: 200 mls/hr Documented by: Lansoprazole (Lansoprazole) 15 mg GT BID [facility] Last Admin: 06/10/19 23:30 Dose: 15 mg Documented by: Loratadine (Claritin) 10 mg GT DAILY [facility] Last Admin: 06/10/19 10:06 Dose: 10 mg Documented by: Lorazepam (Ativan) 1 mg GT Q8 PRN PRN Reason: AGITATION Last Admin: 06/04/19 19:43 Dose: 1 mg Documented by: Metoclopramide HCl (Reglan) 10 mg IV Q8 [facility] Nystatin (Mycostatin Powder) 1 applic TOPICAL TID PRN PRN; Protocol PRN Reason: intertrigo Ondansetron HCl (Zofran) 4 mg IV Q8H PRN PRN PRN Reason: NAUSEA/VOMITING Phenobarbital (Phenobarbital) 60 mg GT BID [facility] Last Admin: 06/10/19 23:30 Dose: 60 mg Documented by: Polyethylene Glycol (Miralax) 17 gm GT TID [facility] Last Admin: 06/11/19 03:12 Dose: 17 gm Documented by: Prochlorperazine Edisylate (Compazine Iv) 5 mg IV Q4H PRN PRN PRN Reason: Breakthrough Nausea/Vomiting Last Admin: 06/10/19 11:45 Dose: 5 mg Documented by: Senna (Senokot) 1 tablet GT DAILY [facility] Last Admin: 06/10/19 10:07 Dose: 1 tablet Documented by: Simethicone (Mylicon) 40 mg GT Q8H [facility] Last Admin: 06/11/19 03:11 Dose: 40 mg Documented by: Sodium Chloride () 10 - 40 ml IV UD PRN PRN Reason: Port-a-Cath (VAD) Flush Last Admin: 06/08/19 05:30 Dose: 20 ml Documented by: Sodium Chloride (0.9% Nacl (Sterile) Posiflush) 10 - 40 ml IV UD PRN PRN Reason: Port access or dressing change Sodium Chloride () 10 - 40 ml IV UD PRN PRN Reason: SALINE FLUSH Assessment/Plan All Active Problems (Last Reviewed 03/24/19 @ 11:39 by Bella Angela) Pulmonary embolism (Acute) Severe sepsis (Acute) Pneumonia involving left lung (Acute) Hypothermia due to non-environmental cause (Acute) Sinus bradycardia by electrocardiogram (Acute) Acute and chronic respiratory failure with hypoxia (Acute) Hypotension (Acute) Septic shock (Acute) Seizure disorder (Acute) Hypokalemia (Resolved) Acute respiratory failure with hypoxia (Resolved) C. difficile colitis (Resolved) C. difficile colitis (Resolved) GJ malfunction (Resolved) Pneumonia (Resolved) Preop cardiovascular exam (Resolved) Sepsis (Resolved) Severe sepsis (Ruled-out) Viral syndrome (Ruled-out) 39-year-old male with distended stomach, possible ileus, history of gastroparesis, past medical history for cerebral palsy, status post trach, PEG, colostomy 1. Patient CT abdomen pelvis not show any distention of the small bowel colon or stomach however official report does not comment on these except for talking about the rectal stump from his Luna's procedure. Patient does have a history of gastroparesis and is on Reglan which he has been getting here however now has been changed to IV. Tube feeds were decreased and started at 10 cc now up to 20 cc and the residuals last check were 50 cc this AM & he also had a bit of air in his stomach when they aspirated the Fracisco button abt 50 cc, this is likely from patient swallowing air. Discussed with Dr. Alexandre as well as Dr. Monsalve. Plan for any surgical intervention. Zabrina Wilson M.D. Pager: [phone] [facility] [address] [place] [address], Outpatient [place], [address] [place] [address] Office: [phone] Inpatient E&M: 94004 Init Hosp L2
[2019-06-11] MEDS: Lansoprazole 15 MG Capsule.DR GT ×2 (10:15→21:21)
[2019-06-11] MEDS: Chlorhexidine 15 ML PO ×2 (10:15→21:11)
[2019-06-11] MEDS: Ascorbic Acid 500 MG Tablet GT (10:15)
[2019-06-11] MEDS: Cefepime HCl 2 GM in 0.9% NS 100 ML Minibag Q12 IV ×2 (10:15→21:10)
[2019-06-11] MEDS: Doxazosin 1 MG Tablet 2 MG GT (10:15)
[2019-06-11] MEDS: Loratadine 10 MG Tablet GT (10:15)
[2019-06-11] MEDS: Senna Tablet 1 TABLET GT (10:15)
[2019-06-11] MEDS: Ferrous Sulfate 300 MG/5 ML UDC GT (10:15)
[2019-06-11] MEDS: Phenobarbital 20 MG/5 ML UDC 60 MG GT ×2 (10:15→21:24)
[2019-06-11] MEDS: Metoclopramide 10 MG/2 ML Vial IV ×3 (10:15→21:22)
[2019-06-11] MEDS: CHLORHEXIDINE GLUC 2% CLOTH 1 EACH TOWELETTE TOPICAL (12:46)
[2019-06-11] MEDS: Furosemide 20 MG/2 ML VIAL IV (17:27)
[2019-06-11] MEDS: 0.9% Saline Lock 10 ML Syringe IV (21:23)
[2019-06-12] VITALS (32 sets, daily range): BP systolic 85–132; BP diastolic 58–93; PULSE 78–124; RESP 14–29; TEMP 36.4–37.6; O2SAT 89–95
[2019-06-12] MEDS: Jevity 1.5 1,000 ML 50 ML GT (01:05)
[2019-06-12] MEDS: Gabapentin 100 MG Capsule 500 MG PO ×4 (04:01→21:31)
[2019-06-12] MEDS: Baclofen 10 MG Tablet 20 MG GT ×4 (04:01→21:31)
[2019-06-12 04:22] LABS: Absolute Lymphocyte Count 1.78 X10^3/uL (0.83-4.51); Absolute Neutrophil Count 8.7 X10^3/uL (2.0-7.7); Basophil# 0.02 X10^3/uL; Basophil% 0.2 % (0-1); Eosinophil# 0.22 X10^3/uL; Eosinophils% 1.9 % (0-5); Hematocrit 29.4 % (40-54); Hemoglobin 9.1 g/dL (13.0-16.5); Lymphocyte # 1.78 X10^3/ul (4.0); Lymphocyte % 15.6 % (19-41); Mean Corpuscular Hgb 28.3 pg (27.0-32.0); Mean Corpuscular Volume 91.6 fL (80-94); Mean Platelet Vol. 10.6 fl (6.2-12.0); Monocyte# 0.65 X10^3/uL; Monocyte% 5.7 % (0-10); NRBC Flagged by Analyzer 0 % (0-5); Neutrophil # 8.67 X10^3/uL (2.7-7.7); Neutrophil % 76.2 % (47-70); Platelet Count 155 K/mm3 (150-450); RBC Distribution Width SD 52.3 fl (35.1-43.9); Red Blood Count 3.21 M/mm3 (4.6-6.2); White Blood Count 11.4 K/mm3 (4.4-11.0)
[2019-06-12 04:35] LABS: Anion Gap 4 (5-15); BUN 17 mg/dL (7-18); BUN/Creat Ratio 29.2 RATIO (10-20); Calcium,Total 8.7 mg/dL (8.5-10.1); Chloride 105 mmol/L (98-107); Creatinine, Serum 0.58 mg/dL (0.70-1.30); EST Glomerular Filtration Rate 166 mL/min (>60); Est Glom Filt Rate - Afr Amer 201 mL/min (>60); Estimated Creatinine Clearance 194.36 ml/min; Glucose 85 mg/dL (74-106); Sodium Level 140 mmol/L (136-145)
[2019-06-12] MEDS: Metoclopramide 10 MG/2 ML Vial IV ×3 (05:41→21:34)
[2019-06-12] MEDS: Polyethylene Glycol 3350 17 GM PACKET GT ×3 (05:41→21:33)
[2019-06-12] MEDS: 0.9% Saline Lock 10 ML Syringe IV ×4 (05:41→16:38)
--- NOTE | 2019-06-12 06:34 | PN_ITS ---
Subjective: The patient was seen and examined at the bedside this morning. Events from the last 24 hours have been reviewed. The patient is currently afebrile, hemodynamically stable and maintaining appropriate oxygen saturations with an FiO2 requirement of 55%. The patient has been tolerating tube feeds. However, the patient's FiO2 requirement has steadily been increasing. Objective: The patient's most recent lab work, culture data and imaging studies have all been personally reviewed. Sputum culture dated June 03 was polymicrobial in nature with Pseudomonas, Streptococcus and Corynebacterium present. General: Alert, No apparent distress, Lethargic HEENT: Atraumatic, Normocephalic Oral: No Gingival or Mucosal Lesions/ Ulcerations Neck: Supple, No Nodes, Trachea Midline, - - Tracheostomy site intact Lungs: No rhonchi, No wheeze, No rales, Diminished, Tachypneic Cardiovascular: Normal S1, Normal S2, No murmurs, Tachycardic Abdomen: Bowel Sounds Present, Soft, Non Tender Extremities: No clubbing, No cyanosis, Edema Skin: - - No significant change from previous Musculoskeletal: No Muscle Wasting, - - Exaggerated kyphoscoliosis Lymphatic: No Cervical, Supraclavicular, or Inguinal Adenopathy Neurological: - - Baseline nonverbal status. Spastic quadriplegia. Psych/Mental Status: Flat Affect Vital Signs Temp Pulse Resp BP Pulse Ox 97.5 F L 97 14 119/81 H 95 06/12/19 04:00 06/12/19 04:00 06/12/19 04:00 06/12/19 04:00 06/12/19 04:00 Oxygen Flow Rate (L/min) 35 Oxygen Delivery Method Mechanical Ventilator Weight: 172 lb 6.424 oz Body Mass Index (BMI) 23.6 Finger Stick Blood Glucose 132 Intake and Output for Last 24 Hours 06/10/19 06/11/19 06/12/19 23:59 23:59 23:59 Intake Total 1628 / 1628 1605 / 2137 964 / 964 Output Total 130 / 130 375 / 375 150 / 150 Balance 1498 / 1498 1230 / 1762 814 / 814 Labs (Last 48 Hours) 06/10/19 06/10/19 06/11/19 06:15 06:15 05:30 WBC 3.9 L 5.5 RBC 3.02 L 2.90 L Hgb 8.6 L 8.2 L Hct 27.9 L 27.0 L MCV 92.4 93.1 MCH 28.5 28.3 MCHC 30.8 L 30.4 L RDW Std Deviation 52.9 H 54.1 H RDW Coeff of Emilee 16.0 H 16.2 H Plt Count 96 L 111 L MPV 11.0 11.5 Immature Gran % (Auto) 0.300 0.200 Neut % (Auto) 51.5 56.0 Lymph % (Auto) 29.9 28.8 Deuel % (Auto) 9.0 9.2 Eos % (Auto) 9.0 H 5.6 H Baso % (Auto) 0.3 0.2 Absolute Neuts (auto) 2.0 3.1 Absolute Lymphs (auto) 1.17 1.59 Nucleated RBC % 0 0 Platelet Estimate MOD DEC Sodium 145 Potassium 3.5 Chloride 110 H Carbon Dioxide 29.0 Anion Gap 6 BUN 14 Creatinine 0.44 L Estim Creat Clear Calc 262.05 Est GFR (MDRD) Af Amer 275 Est GFR (MDRD) Non-Af 227 BUN/Creatinine Ratio 31.5 H Glucose 97 Calcium 8.6 Phosphorus Magnesium 06/11/19 06/12/19 06/12/19 05:30 04:00 04:00 WBC 11.4 H RBC 3.21 L Hgb 9.1 L Hct 29.4 L MCV 91.6 MCH 28.3 MCHC 31.0 L RDW Std Deviation 52.3 H RDW Coeff of Emilee 16.0 H Plt Count 155 MPV 10.6 Immature Gran % (Auto) 0.400 Neut % (Auto) 76.2 H Lymph % (Auto) 15.6 L Deuel % (Auto) 5.7 Eos % (Auto) 1.9 Baso % (Auto) 0.2 Absolute Neuts (auto) 8.7 H Absolute Lymphs (auto) 1.78 Nucleated RBC % 0 Platelet Estimate Sodium 146 H 140 Potassium 3.5 4.0 Chloride 110 H 105 Carbon Dioxide 32.0 31.0 Anion Gap 4 L 4 L BUN 17 17 Creatinine 0.50 L 0.58 L Estim Creat Clear Calc 230.61 194.36 Est GFR (MDRD) Af Amer 241 201 Est GFR (MDRD) Non-Af 199 166 BUN/Creatinine Ratio 34.1 H 29.2 H Glucose 84 85 Calcium 8.7 8.7 Phosphorus 4.7 Magnesium 2.0 Clinical Impression(s) from Imaging Studies Chest X-Ray 06/03/19 23:59 IMPRESSION: Possible left perihilar infiltrate, clinical correlation recommended. Lines and tubes as described. Electronically Signed: May Phillips MD at 1:22 EDT , Service support , KUB X-Ray 06/10/19 17:28 IMPRESSION: Distended stomach, otherwise unremarkable GI tract. Electronically Signed: Jose Luis Aiken MD at 19:16 EDT , Service support , Abdomen/Pelvis CT 06/10/19 20:27 IMPRESSION: Adequate position of percutaneous gastrostomy tube. Left and right lower lobe collapse with pleural effusions. Additional lung disease. Scarring within the right anterior abdominal wall with some metal and/or a broken catheter extending away from this scarring. There may be fluid centrally within the scarring. It is the same as previously. Left-sided colostomy. Bilateral inguinal hernias unchanged. Body wall edema similar. Soft tissue, likely fluid standings the rectum and the remaining portions of the sigmoid colon that have a blind ceil beginning. This is unchanged. Individualized dose optimization techniques were used for this CT. at 2344 Reported and signed by: Bakari Thacker MD Electronically Signed: Bakari Thacker MD at 23:43 EDT Tel , Service support , Medical Necessity - Tobacco Use Smoking Status: Never smoker Tobacco Use: Non-smoker Assessment/Plan All Active Problems (Last Reviewed 03/24/19 @ 11:39 by Bella Angela) Severe sepsis (Acute) Pneumonia involving left lung (Acute) Hypothermia due to non-environmental cause (Acute) Sinus bradycardia by electrocardiogram (Acute) Acute and chronic respiratory failure with hypoxia (Acute) Hypotension (Acute) Septic shock (Acute) Seizure disorder (Acute) Hypokalemia (Resolved) Acute respiratory failure with hypoxia (Resolved) C. difficile colitis (Resolved) C. difficile colitis (Resolved) GJ malfunction (Resolved) Pneumonia (Resolved) Preop cardiovascular exam (Resolved) Sepsis (Resolved) Severe sepsis (Ruled-out) Viral syndrome (Ruled-out) RECOMMENDATIONS: 1. Continue mechanical ventilatory support. 2. Continue antimicrobials with plans to complete a 10-day treatment course. 3. Wean FiO2 to maintain oxygen saturations at or above 90%. 4. Continue tube feeds. 5. Obtain repeat sputum culture, along with repeat chest x-ray. 6. If oxygenation status worsens, consider obtaining CTA chest. IMPRESSIONS: 1. Septic shock Likely secondary to pseudomonal pneumonia. The patient is currently hemodynamically stable. He is tolerating tube feeds. Continue cefepime with plans to complete a 10-day treatment course. 2. Acute on chronic respiratory failure Continue current supportive measures with mechanical ventilatory support and wean FiO2 to maintain oxygen saturations at or above 90%. Plan to continue cefepime to complete 10-day treatment course. We will also plan to start Lasix today as well on a scheduled basis. If the patient's oxygenation status does not begin to improve, will obtain CTA chest to evaluate for the possibility for PE. 3. Bradycardia Resolved. Likely secondary to the patient's presenting sepsis syndrome and hypothermia. The patient's bradycardia appears to be resolving as he becomes euthermic. 4. 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 Continue home medications as indicated. Suspect pancytopenia is secondary to underlying infection. We will plan to continue to monitor daily. Continue tube feeds as tolerated. This note was generated with [employer]ally[employer] software. It may contain incorrect words, spelling, and punctuation that were not noted in checking the note before signing. Inpatient E&M: [id number] [facility] L[facility]
[2019-06-12] MEDS: Ipratropium/Albuterol Sulfate 3 ML AMPUL.NEB INHALATION ×3 (07:23→19:00)
--- NOTE | 2019-06-12 07:39 | RAD_ITS ---
STUDY: X-RAY CHEST REASON FOR EXAM: Male, 39 years old. RESPIRATORY FAILURE TECHNIQUE: Single AP portable view of the chest. COMPARISON: Comparison is made with prior study dated June 04, 2019. FINDINGS: A tracheostomy is in situ. The tip is at 3.3 cm proximal to the clark. A right-sided portacatheter is seen with the tip at the junction of the superior vena cava and right atrium. Limited inspiratory effort. Increased linear markings at the right lung base with blunting of the right cosmetic angle suggestive of atelectasis and/or early infiltrate. There is mild cardiac enlargement. Normal mediastinum and rachelle. Normal visualized pulmonary arteries. There is atherosclerotic tortuosity of the aortic arch and descending thoracic aorta. Normal visualized thoracic spine. Normal visualized ribs, clavicles, and shoulders. There is no demonstrated abnormality of the visualized soft tissue structures of the upper abdomen. RAD/Chest 1 View (Portable) IMPRESSION: Limited inspiratory effort. Blunting of the right costophrenic angle with increased linear markings at the left lung base suggestive of a right basilar atelectasis and/or early infiltrate. Electronically Signed: Matti Greer, at 8:53 EDT , Service support ,
[2019-06-12] MEDS: Furosemide 40 MG/4 ML Vial IV (08:47)
[2019-06-12] MEDS: Cefepime HCl 2 GM in 0.9% NS 100 ML Minibag Q12 IV ×2 (09:14→21:30)
[2019-06-12] MEDS: Lansoprazole 15 MG Capsule.DR GT ×2 (09:14→21:31)
[2019-06-12] MEDS: Doxazosin 1 MG Tablet 2 MG GT (09:15)
[2019-06-12] MEDS: Senna Tablet 1 TABLET GT (09:15)
[2019-06-12] MEDS: Loratadine 10 MG Tablet GT (09:15)
[2019-06-12] MEDS: Ascorbic Acid 500 MG Tablet GT (09:16)
[2019-06-12] MEDS: Ferrous Sulfate 300 MG/5 ML UDC GT (09:16)
[2019-06-12] MEDS: CHLORHEXIDINE GLUC 2% CLOTH 1 EACH TOWELETTE TOPICAL (09:17)
[2019-06-12] MEDS: Chlorhexidine 15 ML PO ×2 (09:17→21:34)
[2019-06-12] MEDS: Phenobarbital 20 MG/5 ML UDC 60 MG GT ×2 (09:17→21:33)
--- NOTE | 2019-06-12 09:37 | PN_ITS ---
Patient Problems: Active and Suspected Problems (Last Reviewed 03/24/19 @ 11:39 by Bella Angela) Severe sepsis (Acute) Pneumonia involving left lung (Acute) Hypothermia due to non-environmental cause (Acute) Sinus bradycardia by electrocardiogram (Acute) Acute and chronic respiratory failure with hypoxia (Acute) Hypotension (Acute) Septic shock (Acute) Seizure disorder (Acute) Subjective: Patient seen and examined. He feels warm to touch and has a low-grade fever of 99.2 Fahrenheit this morning. Her saturation has been in the high 80s this morning and was 87% at time of review. He is now on 40 mils of tube feed per hour. He has remained hemodynamically stable otherwise. Vitals/I&O's: Vital Signs Temp Pulse Resp BP Pulse Ox 99.2 F H 119 H 20 H 99/60 90 06/12/19 08:00 06/12/19 09:23 06/12/19 09:00 06/12/19 09:00 06/12/19 09:23 Oxygen Flow Rate (L/min) 35 Oxygen Delivery Method Mechanical Ventilator Weight: 172 lb 6.424 oz Body Mass Index (BMI) 23.6 Finger Stick Blood Glucose 132 Intake and Output for Last 24 Hours 06/10/19 06/11/19 06/12/19 23:59 23:59 23:59 Intake Total 1628 / 1628 1605 / 2137 984 / 984 Output Total 130 / 130 375 / 375 150 / 150 Balance 1498 / 1498 1230 / 1762 834 / 834 General: Alert, Cooperative, - - nonverbal HEENT: Atraumatic, PERRLA, EOMI, Normocephalic, - - macroglossia Oral: Dry Mucosa Neck: Supple, No JVD, Negative Carotid Bruits Lungs: - - decreased breath sounds bibasally, minimal crackles. on ventilator via tracheostomy Cardiovascular: Regular rate, Regular Rhythm, Normal S1, Normal S2, No murmurs Abdomen: Bowel Sounds Present, Soft, Non Tender, Non-Distended, No Hepato-splenomegaly, PEG tube Extremities: No clubbing, No cyanosis, No edema, Capillary Refill Less than 3 Seconds Skin: No rashes, No breakdown Musculoskeletal: No Tenderness to Palpation of Joints or Extremities, - - contractures of UEs and LEs Lymphatic: No Cervical, Supraclavicular, or Inguinal Adenopathy Neurological: - - patient nonverbal, alert, opens eyes spontaneously. Psych/Mental Status: Flat Affect Microbiology Past 72 Hours 06/04/19 01:35 Blood Culture (Wb) - Right Hand Blood Culture - Final No growth in 5 days. 06/04/19 00:22 Blood Culture (Wb) - Port Blood Culture - Final No growth in 5 days. Laboratory Results 06/12/19 04:00: WBC 11.4 H, RBC 3.21 L, Hgb 9.1 L, Hct 29.4 L, MCV 91.6, MCH 28.3, MCHC 31.0 L, RDW Std Deviation 52.3 H, RDW Coeff of Emilee 16.0 H, Plt Count 155, MPV 10.6, Immature Gran % (Auto) 0.400, Neut % (Auto) 76.2 H, Lymph % (Auto) 15.6 L, Coleman % (Auto) 5.7, Eos % (Auto) 1.9, Baso % (Auto) 0.2, Absolute Neuts (auto) 8.7 H, Absolute Lymphs (auto) 1.78, Nucleated RBC % 0 06/12/19 04:00: Sodium 140, Potassium 4.0, Chloride 105, Carbon Dioxide 31.0, Anion Gap 4 L, BUN 17, Creatinine 0.58 L, Estim Creat Clear Calc 194.36, Est GFR (MDRD) Af Amer 201, Est GFR (MDRD) Non-Af 166, BUN/Creatinine Ratio 29.2 H, Glucose 85, Calcium 8.7 Diagnostic Data KUB X-Ray 06/10/19 17:28 IMPRESSION: Distended stomach, otherwise unremarkable GI tract. Electronically Signed: Jose Luis Aiken MD at 19:16 EDT , Service support , Abdomen/Pelvis CT 06/10/19 20:27 IMPRESSION: Adequate position of percutaneous gastrostomy tube. Left and right lower lobe collapse with pleural effusions. Additional lung disease. Scarring within the right anterior abdominal wall with some metal and/or a broken catheter extending away from this scarring. There may be fluid centrally within the scarring. It is the same as previously. Left-sided colostomy. Bilateral inguinal hernias unchanged. Body wall edema similar. Soft tissue, likely fluid standings the rectum and the remaining portions of the sigmoid colon that have a blind ceil beginning. This is unchanged. Individualized dose optimization techniques were used for this CT. at 2344 Reported and signed by: Bakari Thacker MD Electronically Signed: Bakari Thacker MD at 23:43 EDT Tel , Service support , Chest X-Ray 06/12/19 07:39 IMPRESSION: Limited inspiratory effort. Blunting of the right costophrenic angle with increased linear markings at the left lung base suggestive of a right basilar atelectasis and/or early infiltrate. Electronically Signed: Matti Greer, at 8:53 EDT , Service support , Current Medications Acetaminophen (Tylenol) 650 mg RECTAL Q4H PRN PRN PRN Reason: Pain Score 1-10/Temp > 100.7 F Albuterol Sulfate (Ventolin Aerosols) 2.5 mg INHALATION Q2H PRN PRN PRN Reason: Dyspnea, wheezing Albuterol/Ipratropium (Duoneb) 3 ml INHALATION Q6HWA.RT JOYCE Last Admin: 06/12/19 07:23 Dose: 3 ml Documented by: Ascorbic Acid (Vitamin C) 500 mg GT DAILY JOYCE Last Admin: 06/12/19 09:16 Dose: 500 mg Documented by: Atropine Sulfate () 1 mg IV X1 PRN PRN Reason: sustained bradycardia <30 Baclofen (Lioresal) 20 mg GT Q6H JOYCE Last Admin: 06/12/19 09:16 Dose: 20 mg Documented by: Chlorhexidine Gluconate () 15 ml PO BID JOYCE Last Admin: 06/12/19 09:17 Dose: 15 ml Documented by: Chlorhexidine Gluconate () 1 each TOPICAL DAILY [facility] Last Admin: 06/12/19 09:17 Dose: 1 each Documented by: Dextrose (D50w Syringe) 0 gm IV X1 PRN; Protocol PRN Reason: Hypoglycemia Doxazosin Mesylate (Cardura) 2 mg GT DAILY [facility] Last Admin: 06/12/19 09:15 Dose: 2 mg Documented by: Ferrous Sulfate (Ferrous Sulfate Syrup) 300 mg GT DAILY [facility] Last Admin: 06/12/19 09:16 Dose: 300 mg Documented by: Furosemide (Lasix) 40 mg IV BID@1000,1800 [facility] Last Admin: 06/12/19 08:47 Dose: 40 mg Documented by: Gabapentin (Neurontin) 500 mg PO Q6H [facility] Last Admin: 06/12/19 09:14 Dose: 500 mg Documented by: Glucagon () 1 mg IM .X1 PRN PRN Reason: Hypoglycemia Heparin Sodium (Beef Lung) () 50 units IV UD PRN PRN Reason: Port-a-Cath (VAD)Heparin Flush Hydralazine HCl (Apresoline Iv) 10 mg IV Q4H PRN PRN PRN Reason: SBP > 160 Sodium Chloride () 250 mls @ 15 mls/hr IV .[id number] PRN PRN Reason: Saline Flush Last Admin: 06/11/19 21:33 Dose: 15 mls/hr Documented by: Sodium Chloride () 250 mls @ 15 mls/hr IV .[id number] PRN PRN Reason: Additional IVPB Infusion Enteral Nutritional Formula (Jevity 1.5) 1,000 mls @ 50 mls/hr GT .Q20H [facility] Last Admin: 06/12/19 01:05 Dose: 50 mls/hr Documented by: Cefepime HCl 2 gm/ Sodium (Chloride) 100 mls @ 200 mls/hr IV Q12 [facility] Stop: 06/13/19 22:01 Last Admin: 06/12/19 09:14 Dose: 200 mls/hr Documented by: Lansoprazole (Lansoprazole) 15 mg GT BID [facility] Last Admin: 06/12/19 09:14 Dose: 15 mg Documented by: Loratadine (Claritin) 10 mg GT DAILY [facility] Last Admin: 06/12/19 09:15 Dose: 10 mg Documented by: Lorazepam (Ativan) 1 mg GT Q8 PRN PRN Reason: AGITATION Last Admin: 06/04/19 19:43 Dose: 1 mg Documented by: Metoclopramide HCl (Reglan) 10 mg IV Q8 [facility] Last Admin: 06/12/19 05:41 Dose: 10 mg Documented by: Nystatin (Mycostatin Powder) 1 applic TOPICAL TID PRN PRN; Protocol PRN Reason: intertrigo Ondansetron HCl (Zofran) 4 mg IV Q8H PRN PRN PRN Reason: NAUSEA/VOMITING Phenobarbital (Phenobarbital) 60 mg GT BID [facility] Last Admin: 06/12/19 09:17 Dose: 60 mg Documented by: Polyethylene Glycol (Miralax) 17 gm GT TID [facility] Last Admin: 06/12/19 05:41 Dose: 17 gm Documented by: Prochlorperazine Edisylate (Compazine Iv) 5 mg IV Q4H PRN PRN PRN Reason: Breakthrough Nausea/Vomiting Last Admin: 06/10/19 11:45 Dose: 5 mg Documented by: Senna (Senokot) 1 tablet GT DAILY [facility] Last Admin: 06/12/19 09:15 Dose: 1 tablet Documented by: Simethicone (Mylicon) 40 mg GT Q8H [facility] Last Admin: 06/12/19 09:16 Dose: 40 mg Documented by: Sodium Chloride () 10 - 40 ml IV UD PRN PRN Reason: Port-a-Cath (VAD) Flush Last Admin: 06/12/19 08:49 Dose: 20 ml Documented by: Sodium Chloride (0.9% Nacl (Sterile) Posiflush) 10 - 40 ml IV UD PRN PRN Reason: Port access or dressing change Sodium Chloride () 10 - 40 ml IV UD PRN PRN Reason: SALINE FLUSH STROKE Vital Signs/Narrative: Vital Signs Temp Pulse Resp BP BP Pulse Ox 06/12/19 09:23 119 H 90 06/12/19 09:00 108 H 20 H 99/60 89 06/12/19 08:00 99.2 F H 121 H 26 H 132/81 H 92 06/12/19 07:15 122 H 28 H 90 06/12/19 06:54 96 Medical Necessity - Tobacco Use Smoking Status: Never smoker Tobacco Use: Non-smoker Assessment/Plan All Active Problems (Last Reviewed 03/24/19 @ 11:39 by Bella Angela) Severe sepsis (Acute) Pneumonia involving left lung (Acute) Hypothermia due to non-environmental cause (Acute) Sinus bradycardia by electrocardiogram (Acute) Acute and chronic respiratory failure with hypoxia (Acute) Hypotension (Acute) Septic shock (Acute) Seizure disorder (Acute) Hypokalemia (Resolved) Acute respiratory failure with hypoxia (Resolved) C. difficile colitis (Resolved) C. difficile colitis (Resolved) GJ malfunction (Resolved) Pneumonia (Resolved) Preop cardiovascular exam (Resolved) Sepsis (Resolved) Severe sepsis (Ruled-out) Viral syndrome (Ruled-out) 1. Septic shock due to community acquired pneumonia * off pressors. * sputum cultured Pseudomonas, Strep and Corynebacterium * COVID screen was negative * on IV cefepime; to complete 10 day course * Blood cultures were negative * Had a low-grade fever this morning and repeat chest x-ray done this morning showed blunting of the right costophrenic angle with increased linear markings at the left lung base suggestive of a right basilar atelectasis and/or early infiltrate. wbc is also slightly up to 11.4 today. * 2. Acute on chronic hypoxic respiratory failure * on ventilator via his tracheostomy * critical care on board * titrate FiO2 to maintain sats>90% * breathing treatments with duonebs 3. Bradycardia: resolved. 4. Probable ileus * KUB showed distended stomach, otherwise unremarkable GI tract * CT abdomen and pelvis showed left and right lower lobe collapse with pleural effusions, left sided colostomy and no evidence of ileus * general surgery on board- per general surgery recommendations, patient doesnt have ileus * 4.Pancytopenia * improving. wbc is 11.4, today, hb is 9.1 and platelets are 155 * thought to be due to his acute illness * will continue monitoring. 4. hypokalemia: resolved. 5. spastic quadriplegia * complicates care, prognosis and expected recovery * Nutrition: on tube feeding. now on 40cc/hr. goal is to get to 50cc/hr. DVT prophylaxis: SCDs Inpatient E&M: [id number] [facility] Hosp L3
--- NOTE | 2019-06-12 11:34 | CASEMGMT ---
Social Work Note Plan is for pt to return home with family support and resumption of services once pt is medically cleared. SW to continue to follow. Veronica Oleary WAGE CONCILIATOR, RN VISITING
--- NOTE | 2019-06-12 12:15 | CT_ITS ---
STUDY: CTA CHEST REASON FOR EXAM: Male, 39 years old. RESPIRATORY FAILURE RADIATION DOSAGE (If Supplied By Facility): CTDIvol = ( 10.09 ) mGy, DLP = ( 428.95 ) mGycm TECHNIQUE: The examination was performed with the intravenous administration of IV 100mL Isovue-370. Post-processing of the angiographic images was performed, with multiplanar reformation and 3D reconstruction. Individualized dose optimization techniques were used for this CT. COMPARISON: Comparison is made with prior study dated October 08, 2018. FINDINGS: A tracheostomy tube is seen in situ. Intraluminal filling defects seen in branches of the left upper lobe pulmonary artery in keeping with pulmonary embolism. Normal thoracic aorta and visualized great vessels. There is no demonstrated aortic dissection. A dual-chamber pacemaker is seen. Normal mediastinum. Normal hilar regions. Normal visualized trachea and bronchi. The lungs are well expanded. Mild increased markings in the left upper lobe. Small bilateral pleural effusions with bibasilar atelectasis and/or infiltrate slightly worse at the left lung base. Mild increased markings in the right middle lobe. Normal chest wall structures. Normal osseous structures. Questionable tiny gallstones in the contracted gallbladder. CT/CTA Chest W/WO Contrast IMPRESSION: Pulmonary emboli in branches of the left upper lobe pulmonary arterial branches. Small bilateral pleural effusions with bibasilar infiltration and/or atelectasis slightly worse on the left side with increased markings in the right middle lobe. Electronically Signed: Matti Greer, at 14:51 EDT , Service support ,
[2019-06-12] MEDS: Enoxaparin 40 MG/0.4 ML Syringe SC ×2 (13:24→16:36)
--- NOTE | 2019-06-12 14:33 | NURSING ---
Colostomy appliance leaking. RE Smith stated that the appliance was also changed last evening. there is only a small amount of liquid brown stool noted in the appliance. abdomen appears distended. patient appears to have a slight peristomal hernia as well. stoma measures approx 2 3/4 and is slightly oval in shape. stoma sits at skin level. peristomal skin is intact. cleansed skin with warm water. pat dry. applied a new flat 2 piece Tonia appliance with a small amount of stoma paste. pt tolerated well.
[2019-06-12] MEDS: Furosemide 20 MG/2 ML VIAL 40 MG IV (16:38)
[2019-06-13] VITALS (36 sets, daily range): BP systolic 74–146; BP diastolic 47–93; PULSE 58–109; RESP 12–22; TEMP 35.8–36.7; O2SAT 91–99
[2019-06-13] MEDS: Baclofen 10 MG Tablet 20 MG GT ×4 (04:51→21:56)
[2019-06-13] MEDS: Gabapentin 100 MG Capsule 500 MG PO ×4 (04:52→21:56)
[2019-06-13] MEDS: Polyethylene Glycol 3350 17 GM PACKET GT ×3 (05:00→21:57)
[2019-06-13] MEDS: Metoclopramide 10 MG/2 ML Vial IV ×3 (05:00→21:58)
[2019-06-13] MEDS: Enoxaparin 80 MG/0.8 ML Syringe SC (05:03)
[2019-06-13 05:05] LABS: Absolute Lymphocyte Count 1.97 X10^3/uL (0.83-4.51); Absolute Neutrophil Count 4.2 X10^3/uL (2.0-7.7); Basophil# 0.02 X10^3/uL; Basophil% 0.3 % (0-1); Eosinophil# 0.26 X10^3/uL; Eosinophils% 3.7 % (0-5); Hematocrit 27.8 % (40-54); Hemoglobin 8.7 g/dL (13.0-16.5); Lymphocyte # 1.97 X10^3/ul (4.0); Lymphocyte % 27.7 % (19-41); Mean Corp Hgb Conc 31.3 g/dL (32-36); Mean Corpuscular Hgb 28.6 pg (27.0-32.0); Mean Corpuscular Volume 91.4 fL (80-94); Mean Platelet Vol. 10.4 fl (6.2-12.0); Monocyte# 0.66 X10^3/uL; Monocyte% 9.3 % (0-10); NRBC Flagged by Analyzer 0 % (0-5); Neutrophil # 4.17 X10^3/uL (2.7-7.7); Neutrophil % 58.7 % (47-70); Platelet Count 151 K/mm3 (150-450); RBC Distribution Width CV 16.1 % (11.6-14.6); RBC Distribution Width SD 52.4 fl (35.1-43.9); Red Blood Count 3.04 M/mm3 (4.6-6.2); White Blood Count 7.1 K/mm3 (4.4-11.0)
[2019-06-13 05:18] LABS: Anion Gap 6 (5-15); BUN 20 mg/dL (7-18); BUN/Creat Ratio 34.6 RATIO (10-20); Calcium,Total 8.3 mg/dL (8.5-10.1); Chloride 101 mmol/L (98-107); Creatinine, Serum 0.58 mg/dL (0.70-1.30); EST Glomerular Filtration Rate 168 mL/min (>60); Est Glom Filt Rate - Afr Amer 203 mL/min (>60); Estimated Creatinine Clearance 192.88 ml/min; Glucose 114 mg/dL (74-106); Potassium 3.1 mmol/L (3.5-5.1); Sodium Level 139 mmol/L (136-145)
[2019-06-13] MEDS: Jevity 1.5 1,000 ML 50 ML GT (05:21)
--- NOTE | 2019-06-13 06:41 | PCM.PN.INT ---
Subjective: The patient was seen and examined at the bedside this morning. Events from the last 24 hours have been reviewed. The patient is currently afebrile, hemodynamically stable and maintaining appropriate oxygen saturations with an FiO2 requirement of 55%. Given the patient's tenuous respiratory status and increasing FiO2 requirement yesterday, a CTA chest was obtained, which did reveal evidence of left upper lobe pulmonary emboli and small bilateral pleural effusions with associated atelectasis. The patient was subsequently placed on treatment dose Lovenox. Potassium is low this morning at 3.1. Tube feeds continue per home regimen. Minimal residuals noted. I did call and speak with the patient's mother and father this morning to give them an update on his clinical status. I did speak with pharmacy this morning who indicated that both Eliquis and Xarelto can be crushed and administered via the patient's G-tube. Case management indicated that Eliquis would be $0 out of pocket for them. Therefore, the patient was transitioned to Eliquis from Lovenox this morning. Objective: The patient's most recent lab work, culture data and imaging studies have all been personally reviewed. Sputum culture dated June 03 was polymicrobial in nature with Pseudomonas, Streptococcus and Corynebacterium present. General: Alert, No apparent distress, Lethargic HEENT: Atraumatic, Normocephalic Oral: Moist Mucosa Neck: Supple, No Nodes, Trachea Midline, - - Trach site intact Lungs: No rhonchi, No wheeze, No rales, Diminished Cardiovascular: Regular rate, Regular Rhythm, Normal S1, Normal S2, No murmurs Abdomen: Bowel Sounds Present, Soft, Non Tender Extremities: No clubbing, No cyanosis Skin: - - No change from previous Musculoskeletal: No Muscle Wasting Neurological: - - Baseline neurological status with spastic quadriplegia. Psych/Mental Status: Flat Affect Vital Signs Temp Pulse Resp BP Pulse Ox 98.1 F 88 16 104/72 96 06/13/19 06:00 06/13/19 06:00 06/13/19 06:00 06/13/19 06:00 06/13/19 06:00 Oxygen Flow Rate (L/min) 35 Oxygen Delivery Method Mechanical Ventilator Weight: 172 lb 6.424 oz Body Mass Index (BMI) 23.6 Finger Stick Blood Glucose 132 Intake and Output for Last 24 Hours 06/11/19 06/12/19 06/13/19 23:59 23:59 23:59 Intake Total 1605 / 2137 2186 / 2916 730 / 730 Output Total 375 / 375 250 / 450 200 / 200 Balance 1230 / 1762 1936 / 2466 530 / 530 Labs (Last 48 Hours) 06/12/19 06/12/19 06/13/19 04:00 04:00 04:55 WBC 11.4 H 7.1 RBC 3.21 L 3.04 L Hgb 9.1 L 8.7 L Hct 29.4 L 27.8 L MCV 91.6 91.4 MCH 28.3 28.6 MCHC 31.0 L 31.3 L RDW Std Deviation 52.3 H 52.4 H RDW Coeff of Emilee 16.0 H 16.1 H Plt Count 155 151 MPV 10.6 10.4 Immature Gran % (Auto) 0.400 0.300 Neut % (Auto) 76.2 H 58.7 Lymph % (Auto) 15.6 L 27.7 [place] % (Auto) 5.7 9.3 Eos % (Auto) 1.9 3.7 Baso % (Auto) 0.2 0.3 Absolute Neuts (auto) 8.7 H 4.2 Absolute Lymphs (auto) 1.78 1.97 Nucleated RBC % 0 0 Sodium 140 Potassium 4.0 Chloride 105 Carbon Dioxide 31.0 Anion Gap 4 L BUN 17 Creatinine 0.58 L Estim Creat Clear Calc 194.36 Est GFR (MDRD) Af Amer 201 Est GFR (MDRD) Non-Af 166 BUN/Creatinine Ratio 29.2 H Glucose 85 Calcium 8.7 06/13/19 04:55 WBC RBC Hgb Hct MCV MCH MCHC RDW Std Deviation RDW Coeff of Emilee Plt Count MPV Immature Gran % (Auto) Neut % (Auto) Lymph % (Auto) [place] % (Auto) Eos % (Auto) Baso % (Auto) Absolute Neuts (auto) Absolute Lymphs (auto) Nucleated RBC % Sodium 139 Potassium 3.1 L Chloride 101 Carbon Dioxide 32.0 Anion Gap 6 BUN 20 H Creatinine 0.58 L Estim Creat Clear Calc 192.88 Est GFR (MDRD) Af Amer 203 Est GFR (MDRD) Non-Af 168 BUN/Creatinine Ratio 34.6 H Glucose 114 H Calcium 8.3 L Microbiology 06/12/19 13:20 Sputum, Induced/Lukens Gram Stain - Final Clinical Impression(s) from Imaging Studies Chest X-Ray 06/03/19 23:59 IMPRESSION: Possible left perihilar infiltrate, clinical correlation recommended. Lines and tubes as described. Electronically Signed: May Phillips MD at 1:22 EDT , Service support , KUB X-Ray 06/10/19 17:28 IMPRESSION: Distended stomach, otherwise unremarkable GI tract. Electronically Signed: Jose Luis Aiken MD at 19:16 EDT , Service support , Abdomen/Pelvis CT 06/10/19 20:27 IMPRESSION: Adequate position of percutaneous gastrostomy tube. Left and right lower lobe collapse with pleural effusions. Additional lung disease. Scarring within the right anterior abdominal wall with some metal and/or a broken catheter extending away from this scarring. There may be fluid centrally within the scarring. It is the same as previously. Left-sided colostomy. Bilateral inguinal hernias unchanged. Body wall edema similar. Soft tissue, likely fluid standings the rectum and the remaining portions of the sigmoid colon that have a blind ceil beginning. This is unchanged. Individualized dose optimization techniques were used for this CT. at 2344 Reported and signed by: Bakari Thacker MD Electronically Signed: Bakari Thacker MD at 23:43 EDT Tel , Service support , Chest X-Ray 06/12/19 07:39 IMPRESSION: Limited inspiratory effort. Blunting of the right costophrenic angle with increased linear markings at the left lung base suggestive of a right basilar atelectasis and/or early infiltrate. Electronically Signed: Matti Greer, at 8:53 EDT , Service support , Chest CTA 06/12/19 12:15 IMPRESSION: Pulmonary emboli in branches of the left upper lobe pulmonary arterial branches. Small bilateral pleural effusions with bibasilar infiltration and/or atelectasis slightly worse on the left side with increased markings in the right middle lobe. Electronically Signed: Matti Greer, at 14:51 EDT , Service support , Medical Necessity - Tobacco Use Smoking Status: Never smoker Tobacco Use: Non-smoker Assessment/Plan All Active Problems (Last Reviewed 03/24/19 @ 11:39 by Bella Angela) Severe sepsis (Acute) Pneumonia involving left lung (Acute) Hypothermia due to non-environmental cause (Acute) Sinus bradycardia by electrocardiogram (Acute) Acute and chronic respiratory failure with hypoxia (Acute) Hypotension (Acute) Septic shock (Acute) Seizure disorder (Acute) Hypokalemia (Resolved) Acute respiratory failure with hypoxia (Resolved) C. difficile colitis (Resolved) C. difficile colitis (Resolved) GJ malfunction (Resolved) Pneumonia (Resolved) Preop cardiovascular exam (Resolved) Sepsis (Resolved) Severe sepsis (Ruled-out) Viral syndrome (Ruled-out) RECOMMENDATIONS: 1. Continue mechanical ventilatory support. Place patient back on home vent in preparation for possible discharge in the next 24 to 48 hours. 2. Continue antimicrobials with plans to complete a 10-day treatment course. 3. Wean FiO2 to maintain oxygen saturations at or above 90%. 4. Continue tube feeds. 5. Transition from Lovenox over to Eliquis. 6. Electrolyte repletion as ordered. IMPRESSIONS: 1. Septic shock Likely secondary to pseudomonal pneumonia. The patient is currently hemodynamically stable. He is tolerating tube feeds. Continue cefepime with plans to complete a 10-day treatment course. 2. Acute on chronic respiratory failure Continue current supportive measures with mechanical ventilatory support and wean FiO2 to maintain oxygen saturations at or above 90%. Plan to continue cefepime to complete 10-day treatment course. Continue Lasix as tolerated by renal function. Given improvement in FiO2, the patient will be transition to his home ventilator in preparation for possible discharge in the next 24 to 48 hours. 3. Newly identified pulmonary embolism CTA chest did reveal evidence for pulmonary embolism. The patient was initially placed on Lovenox and then transition to Eliquis this morning. This will be continued longitudinally following discharge. 4. Hypokalemia Electrolyte repletion as ordered. Recheck levels in the morning. 5. 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 Continue home medications as indicated. Suspect pancytopenia is secondary to underlying infection. We will plan to continue to monitor daily. Continue tube feeds as tolerated. This note was generated with [employer] dictation software. It may contain incorrect words, spelling, and punctuation that were not noted in checking the note before signing. Inpatient E&M: 47708 [facility] L3
[2019-06-13] MEDS: Ipratropium/Albuterol Sulfate 3 ML AMPUL.NEB INHALATION ×3 (06:54→18:41)
[2019-06-13] MEDS: Lansoprazole 15 MG Capsule.DR GT ×2 (08:29→21:56)
[2019-06-13] MEDS: Senna Tablet 1 TABLET GT (08:29)
[2019-06-13] MEDS: Ferrous Sulfate 300 MG/5 ML UDC GT (08:29)
[2019-06-13] MEDS: Ascorbic Acid 500 MG Tablet GT (08:29)
[2019-06-13] MEDS: Loratadine 10 MG Tablet GT (08:29)
[2019-06-13] MEDS: 0.9% Saline Lock 10 ML Syringe IV ×3 (09:02→21:58)
--- NOTE | 2019-06-13 09:05 | CASEMGMT ---
-RN CM Note: Cost for Eliquis checked with pt's pharmacy- [facility] . Per rep, 60 tablets for 30 day script will be $0. Eliquis 30 day free trial card can be given also for any cost associated with loading doses on discharge. Ishan LEVINN RN ACM
--- NOTE | 2019-06-13 09:41 | CASEMGMT ---
RN Note: Call received from VAZQUEZ Hilliard case management manager for [facility]. Updated on intended dc tomorrow to home. New medication plan is for lina. No new needs identified that Arminda would need to assist with, but she states to call if needed. . Ishan LEVINN RN ACM
--- NOTE | 2019-06-13 10:00 | CPS ---
Switched Patient to home ventilator with the home settings of SIMV R10 350 PEEP +8 at this time patient has 6L bleed in Patient tolerating it well.
[2019-06-13] MEDS: Furosemide 20 MG/2 ML VIAL 40 MG IV (10:27)
[2019-06-13] MEDS: CHLORHEXIDINE GLUC 2% CLOTH 1 EACH TOWELETTE TOPICAL (10:27)
[2019-06-13] MEDS: APIXABAN 5 MG TABLET 10 MG GT ×2 (10:28→21:56)
[2019-06-13] MEDS: Phenobarbital 20 MG/5 ML UDC 60 MG GT ×2 (10:31→21:57)
[2019-06-13] MEDS: Doxazosin 1 MG Tablet 2 MG GT (10:31)
[2019-06-13] MEDS: Chlorhexidine 15 ML PO ×2 (10:32→21:59)
[2019-06-13] MEDS: Cefepime HCl 2 GM in 0.9% NS 100 ML Minibag Q12 IV ×2 (10:39→21:58)
--- NOTE | 2019-06-13 10:40 | CASEMGMT ---
Social Work Note SW participated in ICU rounds. Plan is likely discharge home tomorrow. LAYA placed a call to [facility] at [facility] ([phone]) and updated her that plan is for pt to discharge home tomorrow. [facility] states she will need resumption of home health services order for RN, no PT/OT needed. [facility] states she would also like discharge instructions faxed once pt is discharged and provided fax number [phone]. LAYA placed a call to [facility] and left her a message that pt is likely discharging home tomorrow. Resumption of Home Health order placed for pt. SW to fax discharge instructions once completed to Board of and [facility]. Veronica Oleary ACADEMIC INTERVENTIONIST, GRADES 6 THR[employer] 8 TEACHER
--- NOTE | 2019-06-13 11:27 | PN_ITS ---
Patient Problems: Active and Suspected Problems (Last Reviewed 03/24/19 @ 11:39 by Bella Angela) Severe sepsis (Acute) Pneumonia involving left lung (Acute) Hypothermia due to non-environmental cause (Acute) Sinus bradycardia by electrocardiogram (Acute) Acute and chronic respiratory failure with hypoxia (Acute) Hypotension (Acute) Septic shock (Acute) Seizure disorder (Acute) Subjective: Patient seen and examined. Fever of yesterday has resolved. He had a CTA of the chest which diagnosed PE in the branches of the left upper lobe pulmonary artery. He is currently on Lovenox. He is now on 50 cc of tube feeding per hour. However his oxygen requirements is on FiO2 45% with his baseline being around 30%. Labs and vitals reviewed. Potassium was 3.1 today. Vitals/I&O's: Vital Signs Temp Pulse Resp BP Pulse Ox 97.1 F L 76 13 112/71 91 06/13/19 08:00 06/13/19 11:00 06/13/19 11:00 06/13/19 11:00 06/13/19 11:00 Oxygen Flow Rate (L/min) 6 Oxygen Delivery Method Mechanical Ventilator Weight: 170 lb 3.15 oz Body Mass Index (BMI) 23.6 Finger Stick Blood Glucose 132 Intake and Output for Last 24 Hours 06/11/19 06/12/19 06/13/19 23:59 23:59 23:59 Intake Total 1605 / 2137 2286 / 3016 1962 / 1965 Output Total 375 / 375 250 / 450 500 / 500 Balance 1230 / 1762 2036 / 2566 1465 / 1465 General: Alert, - - nonverbal HEENT: Atraumatic, PERRLA, EOMI, Normocephalic, - - macroglossia Oral: Dry Mucosa Neck: Supple, No JVD, Negative Carotid Bruits Lungs: - - decreased breath sounds bibasally, minimal crackles. on ventilator via tracheostomy Cardiovascular: Regular rate, Regular Rhythm, Normal S1, Normal S2, No murmurs Abdomen: Bowel Sounds Present, Soft, Non Tender, Non-Distended, No Hepato- splenomegaly, PEG tube Extremities: No clubbing, No cyanosis, No edema, Capillary Refill Less than 3 Seconds Skin: No rashes, No breakdown Musculoskeletal: No Tenderness to Palpation of Joints or Extremities, - - contractures of UEs and LEs Lymphatic: No Cervical, Supraclavicular, or Inguinal Adenopathy Neurological: - - patient nonverbal, alert, opens eyes spontaneously. Psych/Mental Status: Flat Affect Microbiology Past 72 Hours 06/12/19 13:20 Sputum, Induced/Lukens Gram Stain - Final 06/12/19 13:20 Sputum, Induced/Lukens Respiratory Culture - Preliminary GNR Poss Pseudomonas sp Laboratory Results 06/13/19 04:55: WBC 7.1, RBC 3.04 L, Hgb 8.7 L, Hct 27.8 L, MCV 91.4, MCH 28.6, MCHC 31.3 L, RDW Std Deviation 52.4 H, RDW Coeff of Emilee 16.1 H, Plt Count 151, MPV 10.4, Immature Gran % (Auto) 0.300, Neut % (Auto) 58.7, Lymph % (Auto) 27.7, [place] % (Auto) 9.3, Eos % (Auto) 3.7, Baso % (Auto) 0.3, Absolute Neuts (auto) 4.2, Absolute Lymphs (auto) 1.97, Nucleated RBC % 0 06/13/19 04:55: Sodium 139, Potassium 3.1 L, Chloride 101, Carbon Dioxide 32.0, Anion Gap 6, BUN 20 H, Creatinine 0.58 L, Estim Creat Clear Calc 192.88, Est GFR (MDRD) Af Amer 203, Est GFR (MDRD) Non-Af 168, BUN/Creatinine Ratio 34.6 H, Glucose 114 H, Calcium 8.3 L Diagnostic Data KUB X-Ray 06/10/19 17:28 IMPRESSION: Distended stomach, otherwise unremarkable GI tract. Electronically Signed: Jose Luis Aiken MD at 19:16 EDT , Service support , Abdomen/Pelvis CT 06/10/19 20:27 IMPRESSION: Adequate position of percutaneous gastrostomy tube. Left and right lower lobe collapse with pleural effusions. Additional lung disease. Scarring within the right anterior abdominal wall with some metal and/or a broken catheter extending away from this scarring. There may be fluid centrally within the scarring. It is the same as previously. Left-sided colostomy. Bilateral inguinal hernias unchanged. Body wall edema similar. Soft tissue, likely fluid standings the rectum and the remaining portions of the sigmoid colon that have a blind ceil beginning. This is unchanged. Individualized dose optimization techniques were used for this CT. at 2344 Reported and signed by: Bakari Thacker MD Electronically Signed: Bakari Thacker MD at 23:43 EDT Tel , Service support , Chest X-Ray 06/12/19 07:39 IMPRESSION: Limited inspiratory effort. Blunting of the right costophrenic angle with increased linear markings at the left lung base suggestive of a right basilar atelectasis and/or early infiltrate. Electronically Signed: Matti Greer, at 8:53 EDT , Service support , Chest CTA 06/12/19 12:15 IMPRESSION: Pulmonary emboli in branches of the left upper lobe pulmonary arterial branches. Small bilateral pleural effusions with bibasilar infiltration and/or atelectasis slightly worse on the left side with increased markings in the right middle lobe. Electronically Signed: Matti Greer, at 14:51 EDT , Service support , Current Medications Acetaminophen (Tylenol) 650 mg RECTAL Q4H PRN PRN PRN Reason: Pain Score 1-10/Temp > 100.7 F Albuterol Sulfate (Ventolin Aerosols) 2.5 mg INHALATION Q2H PRN PRN PRN Reason: Dyspnea, wheezing Albuterol/Ipratropium (Duoneb) 3 ml INHALATION Q6HWA.RT JOYCE Last Admin: 06/13/19 06:54 Dose: 3 ml Documented by: Apixaban (Eliquis) 10 mg GT BID JOYCE Stop: 06/20/19 09:01 Last Admin: 06/13/19 10:28 Dose: 10 mg Documented by: Ascorbic Acid (Vitamin C) 500 mg GT DAILY [facility] Last Admin: 06/13/19 08:29 Dose: 500 mg Documented by: Atropine Sulfate () 1 mg IV X1 PRN PRN Reason: sustained bradycardia <30 Baclofen (Lioresal) 20 mg GT Q6H [facility] Last Admin: 06/13/19 10:30 Dose: 20 mg Documented by: Chlorhexidine Gluconate () 15 ml PO BID [facility] Last Admin: 06/13/19 10:32 Dose: 15 ml Documented by: Chlorhexidine Gluconate () 1 each TOPICAL DAILY [facility] Last Admin: 06/13/19 10:27 Dose: 1 each Documented by: Dextrose (D50w Syringe) 0 gm IV X1 PRN; Protocol PRN Reason: Hypoglycemia Doxazosin Mesylate (Cardura) 2 mg GT DAILY [facility] Last Admin: 06/13/19 10:31 Dose: 2 mg Documented by: Ferrous Sulfate (Ferrous Sulfate Syrup) 300 mg GT DAILY [facility] Last Admin: 06/13/19 08:29 Dose: 300 mg Documented by: Furosemide (Lasix) 40 mg IV BID@1000,1800 [facility] Last Admin: 06/13/19 10:27 Dose: 40 mg Documented by: Gabapentin (Neurontin) 500 mg PO Q6H [facility] Last Admin: 06/13/19 10:30 Dose: 500 mg Documented by: Glucagon () 1 mg IM .X1 PRN PRN Reason: Hypoglycemia Heparin Sodium (Beef Lung) () 50 units IV UD PRN PRN Reason: Port-a-Cath (VAD)Heparin Flush Hydralazine HCl (Apresoline Iv) 10 mg IV Q4H PRN PRN PRN Reason: SBP > 160 Sodium Chloride () 250 mls @ 15 mls/hr IV .[id number] PRN PRN Reason: Saline Flush Last Admin: 06/13/19 10:31 Dose: 15 mls/hr Documented by: Sodium Chloride () 250 mls @ 15 mls/hr IV .[id number] PRN PRN Reason: Additional IVPB Infusion Enteral Nutritional Formula (Jevity 1.5) 1,000 mls @ 50 mls/hr GT .Q20H [facility] Last Admin: 06/13/19 05:21 Dose: 50 mls/hr Documented by: Cefepime HCl 2 gm/ Sodium (Chloride) 100 mls @ 200 mls/hr IV Q12 [facility] Stop: 06/13/19 22:01 Last Infusion: 06/13/19 11:09 Dose: Infused Documented by: Lansoprazole (Lansoprazole) 15 mg GT BID [facility] Last Admin: 06/13/19 08:29 Dose: 15 mg Documented by: Loratadine (Claritin) 10 mg GT DAILY [facility] Last Admin: 06/13/19 08:29 Dose: 10 mg Documented by: Lorazepam (Ativan) 1 mg GT Q8 PRN PRN Reason: AGITATION Last Admin: 06/04/19 19:43 Dose: 1 mg Documented by: Metoclopramide HCl (Reglan) 10 mg IV Q8 [facility] Last Admin: 06/13/19 05:00 Dose: 10 mg Documented by: Nystatin (Mycostatin Powder) 1 applic TOPICAL TID PRN PRN; Protocol PRN Reason: intertrigo Ondansetron HCl (Zofran) 4 mg IV Q8H PRN PRN PRN Reason: NAUSEA/VOMITING Phenobarbital (Phenobarbital) 60 mg GT BID [facility] Last Admin: 06/13/19 10:31 Dose: 60 mg Documented by: Polyethylene Glycol (Miralax) 17 gm GT TID [facility] Last Admin: 06/13/19 05:00 Dose: 17 gm Documented by: Prochlorperazine Edisylate (Compazine Iv) 5 mg IV Q4H PRN PRN PRN Reason: Breakthrough Nausea/Vomiting Last Admin: 06/10/19 11:45 Dose: 5 mg Documented by: Senna (Senokot) 1 tablet GT DAILY [facility] Last Admin: 06/13/19 08:29 Dose: 1 tablet Documented by: Simethicone (Mylicon) 40 mg GT Q8H [facility] Last Admin: 06/13/19 10:30 Dose: 40 mg Documented by: Sodium Chloride () 10 - 40 ml IV UD PRN PRN Reason: Port-a-Cath (VAD) Flush Last Admin: 06/13/19 09:02 Dose: 10 ml Documented by: Sodium Chloride (0.9% Nacl (Sterile) Posiflush) 10 - 40 ml IV UD PRN PRN Reason: Port access or dressing change Sodium Chloride () 10 - 40 ml IV UD PRN PRN Reason: SALINE FLUSH STROKE Vital Signs/Narrative: Vital Signs Temp Pulse Resp BP Pulse Ox 06/13/19 11:00 76 13 112/71 91 06/13/19 10:02 78 16 95 06/13/19 10:00 82 17 110/74 95 06/13/19 09:00 75 13 101/71 94 06/13/19 08:00 97.1 F L 80 14 100/71 94 Medical Necessity - Tobacco Use Smoking Status: Never smoker Tobacco Use: Non-smoker Assessment/Plan All Active Problems (Last Reviewed 03/24/19 @ 11:39 by Bella Angela) Severe sepsis (Acute) Pneumonia involving left lung (Acute) Hypothermia due to non-environmental cause (Acute) Sinus bradycardia by electrocardiogram (Acute) Acute and chronic respiratory failure with hypoxia (Acute) Hypotension (Acute) Septic shock (Acute) Seizure disorder (Acute) Hypokalemia (Resolved) Acute respiratory failure with hypoxia (Resolved) C. difficile colitis (Resolved) C. difficile colitis (Resolved) GJ malfunction (Resolved) Pneumonia (Resolved) Preop cardiovascular exam (Resolved) Sepsis (Resolved) Severe sepsis (Ruled-out) Viral syndrome (Ruled-out) 1. Septic shock due to community acquired pneumonia * off pressors. * sputum cultured Pseudomonas, Strep and Corynebacterium * COVID screen was negative * on IV cefepime; to complete 10 day course * Blood cultures were negative * low grade fever from yesterday ahs resolved. * Sputum culture from yesterday again showed gram-negative rods possibly Pseudomonas. * 2. Pulmonary embolism * UTI done yesterday due to low oxygen saturation and fever as well as tachypnea showed intraluminal filling defects in branches of the left upper lobe. Also showed infiltrate slightly worse on the left lung base. * Currently on Lovenox-therapeutic dose. * 3. Acute on chronic hypoxic respiratory failure * on ventilator via his tracheostomy * critical care on board * titrate FiO2 to maintain sats>90%. baseline Fi)2 is ~ 30%; he is currently on FiO2 of 45% * breathing treatments with duonebs 4. Hypokalemia; K is 3.1. Will replace and monitor 5.Pancytopenia * resolved.. wbc is 7.1 today, hb is 8.7, and platelets are 151 * thought to be due to his acute illness * 6. spastic quadriplegia * complicates care, prognosis and expected recovery * Nutrition: on tube feeding. now on 50cc/hr. DVT prophylaxis: on therapeutic dose of lovenox o/a of PE Inpatient E&M: [id number] [facility] Hosp L3
--- NOTE | 2019-06-13 20:16 | CPS ---
Pt on 4L O2
[2019-06-14] VITALS (14 sets, daily range): BP systolic 97–134; BP diastolic 62–97; PULSE 68–120; RESP 13–18; TEMP 36.1–36.8; O2SAT 92–97
--- NOTE | 2019-06-14 00:33 | CPS ---
Pt on 3L O2
[2019-06-14] MEDS: Gabapentin 100 MG Capsule 500 MG PO ×2 (03:57→09:50)
[2019-06-14] MEDS: Jevity 1.5 1,000 ML 50 ML GT (03:57)
[2019-06-14] MEDS: Baclofen 10 MG Tablet 20 MG GT ×2 (03:57→09:50)
[2019-06-14 04:30] LABS: Absolute Lymphocyte Count 1.83 X10^3/uL (0.83-4.51); Absolute Neutrophil Count 2.9 X10^3/uL (2.0-7.7); Basophil# 0.01 X10^3/uL; Basophil% 0.2 % (0-1); Eosinophil# 0.38 X10^3/uL; Eosinophils% 6.5 % (0-5); Hematocrit 29.2 % (40-54); Hemoglobin 8.9 g/dL (13.0-16.5); Lymphocyte # 1.83 X10^3/ul (4.0); Lymphocyte % 31.3 % (19-41); Mean Corp Hgb Conc 30.5 g/dL (32-36); Mean Corpuscular Hgb 28.5 pg (27.0-32.0); Mean Corpuscular Volume 93.6 fL (80-94); Mean Platelet Vol. 10.7 fl (6.2-12.0); NRBC Flagged by Analyzer 0 % (0-5); Neutrophil # 2.91 X10^3/uL (2.7-7.7); Neutrophil % 49.8 % (47-70); Platelet Count 144 K/mm3 (150-450); RBC Distribution Width CV 15.9 % (11.6-14.6); RBC Distribution Width SD 54.1 fl (35.1-43.9); Red Blood Count 3.12 M/mm3 (4.6-6.2); White Blood Count 5.8 K/mm3 (4.4-11.0)
[2019-06-14 04:42] LABS: Anion Gap 3 (5-15); BUN 23 mg/dL (7-18); BUN/Creat Ratio 59.6 RATIO (10-20); Calcium,Total 8.2 mg/dL (8.5-10.1); Chloride 104 mmol/L (98-107); Creatinine, Serum 0.39 mg/dL (0.70-1.30); EST Glomerular Filtration Rate 268 mL/min (>60); Est Glom Filt Rate - Afr Amer 324 mL/min (>60); Estimated Creatinine Clearance 282.44 ml/min; Glucose 88 mg/dL (74-106); Potassium 4.4 mmol/L (3.5-5.1); Sodium Level 139 mmol/L (136-145)
[2019-06-14] MEDS: 0.9% Saline Lock 10 ML Syringe IV (06:16)
[2019-06-14] MEDS: Polyethylene Glycol 3350 17 GM PACKET GT (06:16)
[2019-06-14] MEDS: Metoclopramide 10 MG/2 ML Vial IV (06:16)
[2019-06-14] MEDS: Ipratropium/Albuterol Sulfate 3 ML AMPUL.NEB INHALATION (06:57)
--- NOTE | 2019-06-14 07:16 | PN_ITS ---
Subjective: The patient was seen and examined at the bedside this morning. Events from the last 24 hours have been reviewed. The patient is currently afebrile, hemodynamically stable and maintaining appropriate oxygen saturations on his home vent settings with a 2 L/min oxygen bleed in. The patient was started on Eliquis yesterday and has tolerated it without issue. He continues to tolerate tube feeds. Objective: The patient's most recent lab work, culture data and imaging studies have all been personally reviewed. Sputum culture dated June 03 was polymicrobial in nature with Pseudomonas, Streptococcus and Corynebacterium present. General: Alert, No apparent distress HEENT: Atraumatic, Normocephalic Oral: Moist Mucosa Neck: Supple, No Nodes, Trachea Midline, - - Stable tracheostomy site Lungs: No rhonchi, No wheeze, No rales, Diminished Cardiovascular: Regular rate, Regular Rhythm, Normal S1, Normal S2 Abdomen: Bowel Sounds Present, Soft, Non Tender Extremities: No clubbing, No cyanosis Skin: - - No significant change from previous Musculoskeletal: No Muscle Wasting Lymphatic: No Cervical, Supraclavicular, or Inguinal Adenopathy Neurological: - - Baseline neurological status with spastic quadriplegia. Patie nt is nonverbal. Psych/Mental Status: Flat Affect Vital Signs Temp Pulse Resp BP Pulse Ox 97.5 F L 93 14 131/84 H 95 06/14/19 04:00 06/14/19 06:58 06/14/19 06:58 06/14/19 06:00 06/14/19 06:58 Oxygen Flow Rate (L/min) 2 Oxygen Delivery Method Mechanical Ventilator Weight: 169 lb 12.095 oz Body Mass Index (BMI) 23.6 Finger Stick Blood Glucose 132 Intake and Output for Last 24 Hours 06/12/19 06/13/19 06/14/19 23:59 23:59 23:59 Intake Total 2286 / 3016 3744.25 / 3744.25 482 / 482 Output Total 250 / 450 825 / 825 300 / 300 Balance 2036 / 2566 2919.25 / 2919.25 182 / 182 Labs (Last 48 Hours) 06/13/19 06/13/19 06/14/19 04:55 04:55 04:20 WBC 7.1 5.8 RBC 3.04 L 3.12 L Hgb 8.7 L 8.9 L Hct 27.8 L 29.2 L MCV 91.4 93.6 MCH 28.6 28.5 MCHC 31.3 L 30.5 L RDW Std Deviation 52.4 H 54.1 H RDW Coeff of Emilee 16.1 H 15.9 H Plt Count 151 144 L MPV 10.4 10.7 Immature Gran % (Auto) 0.300 0.200 Neut % (Auto) 58.7 49.8 Lymph % (Auto) 27.7 31.3 [place] % (Auto) 9.3 12.0 H Eos % (Auto) 3.7 6.5 H Baso % (Auto) 0.3 0.2 Absolute Neuts (auto) 4.2 2.9 Absolute Lymphs (auto) 1.97 1.83 Nucleated RBC % 0 0 Sodium 139 Potassium 3.1 L Chloride 101 Carbon Dioxide 32.0 Anion Gap 6 BUN 20 H Creatinine 0.58 L Estim Creat Clear Calc 192.88 Est GFR (MDRD) Af Amer 203 Est GFR (MDRD) Non-Af 168 BUN/Creatinine Ratio 34.6 H Glucose 114 H Calcium 8.3 L 06/14/19 04:20 WBC RBC Hgb Hct MCV MCH MCHC RDW Std Deviation RDW Coeff of Emilee Plt Count MPV Immature Gran % (Auto) Neut % (Auto) Lymph % (Auto) [place] % (Auto) Eos % (Auto) Baso % (Auto) Absolute Neuts (auto) Absolute Lymphs (auto) Nucleated RBC % Sodium 139 Potassium 4.4 Chloride 104 Carbon Dioxide 32.0 Anion Gap 3 L BUN 23 H Creatinine 0.39 L Estim Creat Clear Calc 282.44 Est GFR (MDRD) Af Amer 324 Est GFR (MDRD) Non-Af 268 BUN/Creatinine Ratio 59.6 H Glucose 88 Calcium 8.2 L Microbiology 06/12/19 13:20 Sputum, Induced/Lukens Gram Stain - Final 06/12/19 13:20 Sputum, Induced/Lukens Respiratory Culture - Preliminary Pseudomonas aeroginosa Clinical Impression(s) from Imaging Studies Chest X-Ray 06/03/19 23:59 IMPRESSION: Possible left perihilar infiltrate, clinical correlation recommended. Lines and tubes as described. Electronically Signed: May Phillips MD at 1:22 EDT , Service support , KUB X-Ray 06/10/19 17:28 IMPRESSION: Distended stomach, otherwise unremarkable GI tract. Electronically Signed: Jose Luis Aiken MD at 19:16 EDT , Service support , Abdomen/Pelvis CT 06/10/19 20:27 IMPRESSION: Adequate position of percutaneous gastrostomy tube. Left and right lower lobe collapse with pleural effusions. Additional lung disease. Scarring within the right anterior abdominal wall with some metal and/or a broken catheter extending away from this scarring. There may be fluid centrally within the scarring. It is the same as previously. Left-sided colostomy. Bilateral inguinal hernias unchanged. Body wall edema similar. Soft tissue, likely fluid standings the rectum and the remaining portions of the sigmoid colon that have a blind ceil beginning. This is unchanged. Individualized dose optimization techniques were used for this CT. at 2344 Reported and signed by: Bakari Thacker MD Electronically Signed: Bakari Thacker MD at 23:43 EDT Tel , Service support , Chest X-Ray 06/12/19 07:39 IMPRESSION: Limited inspiratory effort. Blunting of the right costophrenic angle with increased linear markings at the left lung base suggestive of a right basilar atelectasis and/or early infiltrate. Electronically Signed: Matti Greer, at 8:53 EDT , Service support , Chest CTA 06/12/19 12:15 IMPRESSION: Pulmonary emboli in branches of the left upper lobe pulmonary arterial branches. Small bilateral pleural effusions with bibasilar infiltration and/or atelectasis slightly worse on the left side with increased markings in the right middle lobe. Electronically Signed: Matti Greer, at 14:51 EDT , Service support , Medical Necessity - Tobacco Use Smoking Status: Never smoker Tobacco Use: Non-smoker Assessment/Plan All Active Problems (Last Reviewed 03/24/19 @ 11:39 by Bella Angela) Pulmonary embolism (Acute) Severe sepsis (Acute) Pneumonia involving left lung (Acute) Hypothermia due to non-environmental cause (Acute) Sinus bradycardia by electrocardiogram (Acute) Acute and chronic respiratory failure with hypoxia (Acute) Hypotension (Acute) Septic shock (Acute) Seizure disorder (Acute) Hypokalemia (Resolved) Acute respiratory failure with hypoxia (Resolved) C. difficile colitis (Resolved) C. difficile colitis (Resolved) GJ malfunction (Resolved) Pneumonia (Resolved) Preop cardiovascular exam (Resolved) Sepsis (Resolved) Severe sepsis (Ruled-out) Viral syndrome (Ruled-out) RECOMMENDATIONS: 1. Continue home ventilator support. 2. Continue antimicrobials with plans to complete a 10-day treatment course. The patient can likely be transitioned to Levaquin to complete treatment course. 3. Continue tube feeds. 4. Continue Eliquis twice daily via G-tube. 5. The patient is medically stable from my perspective for discharge home. IMPRESSIONS: 1. Septic shock Likely secondary to pseudomonal pneumonia. The patient is currently hemodynamically stable. He is tolerating tube feeds. Continue antimicrobials with plans to complete a 10-day treatment course. 2. Acute on chronic respiratory failure Continue current supportive measures with mechanical ventilatory support and wean FiO2 to maintain oxygen saturations at or above 90%. At this time, the patient has been transitioned back to his home ventilator with appropriate set tings. 3. Newly identified pulmonary embolism CTA chest did reveal evidence for pulmonary embolism. The patient was initially placed on Lovenox and then transitioned to Eliquis. This will be continued longitudinally following discharge. 4. 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 Continue home medications as indicated. Suspect pancytopenia is secondary to underlying infection. We will plan to continue to monitor daily. Continue tube feeds as tolerated. This note was generated with [employer] software. It may contain incorrect words, spelling, and punctuation that were not noted in checking the note before signing. Inpatient E&M: 36644 Subs Hosp L3
--- NOTE | 2019-06-14 09:25 | DCINST_ITS ---
- Discharge Diagnoses Current Active Problems: Current Active and Chronic Problems (Last Reviewed 03/24/19 @ 11:39 by Bella Angela) Severe sepsis (Acute) Pneumonia involving left lung (Acute) Hypothermia due to non-environmental cause (Acute) Sinus bradycardia by electrocardiogram (Acute) Acute and chronic respiratory failure with hypoxia (Acute) Anemia (Chronic) Hypotension (Acute) Septic shock (Acute) Seizure disorder (Acute) Cerebral palsy (Chronic) Quadriplegic Severe mental retardation Chronic constipation PEG tube Edema (Chronic) You will use the following diet at home:: Other - Jevity 1.5 via GI at 50cc/h with 50 cc water flush every hour. Call your doctor if you observe: Fever of 101 or Higher, Shortness of breath Additional Dressing/Incision Instructions:: reposition every 2 hours. Additional Instructions: mechanical vent with oxygen bleed through 2 liters/min Allergies/Adverse Reactions: Allergies cisapride monohydrate [From Propulsid] Allergy (Verified 06/04/19 00:05) Rash codeine Adverse Reaction (Verified 06/04/19 00:05) hallucinations metronidazole [From Flagyl] Adverse Reaction (Verified 06/04/19 00:05) Rash morphine Adverse Reaction (Verified 06/04/19 00:05) Hallucinations dust Allergy (Uncoded 06/04/19 00:05) Other Medications to take at Discharge Simethicone 40MG/0.6ML [Mylicon] 40 mg GT TID 11/09/13 Pantoprazole Sodium [Protonix] 20 ml GT BID 08/09/14 Phenobarbital 60 mg GT BID 02/19/17 Cetirizine HCl [Zyrtec] 10 ml GT DAILY 02/04/18 Lactobacillus Acidophilus [Acidophilus] 1 cap GT DAILY 02/04/18 Gabapentin 500 mg GT 4X/DAY 07/14/18 metoclopramide HCl 5 mg/5 mL oral solution 10 mg GT TID ml 09/16/18 Lorazepam [Ativan] 1 mg GT Q8 PRN 10/08/18 Cholecalciferol (Vitamin D3) [Vitamin D3] 5 ml GT DAILY 12/25/18 Cough Assist 1 dose .ROUTE .MEDSUPPLY 12/25/18 Ferrous Sulfate 5 ml GT DAILY 12/25/18 Furosemide 40 mg GT DAILY PRN 12/25/18 Potassium Chloride 1.5 ml GT DAILY PRN 12/25/18 oxygen concentrator 1 dose .ROUTE .MEDSUPPLY 12/25/18 Ascorbic Acid [Vitamin C] 500 mg PO DAILY #150 mls 12/27/18 doxazosin 2 mg tablet 2 mg PO DAILY tab 03/24/19 Baclofen [Ozobax] 20 mg GT 4X/DAY 05/09/19 Lactose-Reduced Food/Fiber [Jevity 1.2 South Liquid] 1,500 ml PO DAILY 05/09/19 Ondansetron HCl [Zofran] 5 ml PO DAILY PRN 05/09/19 Polyethylene Glycol 3350 [Miralax] 17 gm GT TID 05/09/19 Apixaban [Eliquis] 5 mg GT BID #60 tab 06/14/19 The following prescriptions were given: Apixaban [Eliquis] 5 mg GT BID #60 tab Transmission Status: Pending to [facility] Primary Care Physician: Timmy Conn MD [Primary Care Provider] - Within 2 Weeks Test Results: Test results from this visit will be discussed in further detail at your follow- up appointment, if applicable. Please Follow Up With: Jacek Monsalve MD When: 07/12/2019. Already scheduled. Call to verify 1 week prior. Please Follow Up With: Maury Waite MD When: 09/15/2019. Already scheduled. Proposed Discharge Date: 06/14/19
--- NOTE | 2019-06-14 09:31 | DS.PCM_ITS ---
Discharge Date and Diagnosis - Problem List Patient Problems: Active and Suspected Problems (Last Reviewed 03/24/19 @ 11:39 by Bella Angela) Pulmonary embolism (Acute) Severe sepsis (Acute) Pneumonia involving left lung (Acute) Hypothermia due to non-environmental cause (Acute) Sinus bradycardia by electrocardiogram (Acute) Acute and chronic respiratory failure with hypoxia (Acute) Hypotension (Acute) Septic shock (Acute) Seizure disorder (Acute) Date of Admission: 06/04/19 Date of Discharge: 06/14/19 - Primary Discharge Diagnosis Active and Suspected Problems (Last Reviewed 03/24/19 @ 11:39 by Bella Angela) Pulmonary embolism (Acute) Severe sepsis (Acute) Pneumonia involving left lung (Acute) Hypothermia due to non-environmental cause (Acute) Sinus bradycardia by electrocardiogram (Acute) Acute and chronic respiratory failure with hypoxia (Acute) Hypotension (Acute) Septic shock (Acute) Seizure disorder (Acute) - Secondary Discharge Diagnosis Chronic Problems (Last Reviewed 03/24/19 @ 11:39 by Bella Angela) Anemia (Chronic) Nonrheumatic mitral valve prolapse (Chronic) Iron deficiency anemia (Chronic) Chronic respiratory failure (Chronic) Cerebral palsy (Chronic) Quadriplegic Severe mental retardation Chronic constipation PEG tube Edema (Chronic) Hospital Course and Treatment Imaging Results: Clinical Impression(s) from Imaging Studies Chest X-Ray 06/03/19 23:59 IMPRESSION: Possible left perihilar infiltrate, clinical correlation recommended. Lines and tubes as described. Electronically Signed: May Phillips MD at 1:22 EDT , Service support , KUB X-Ray 06/10/19 17:28 IMPRESSION: Distended stomach, otherwise unremarkable GI tract. Electronically Signed: Jose Luis Aiken MD at 19:16 EDT , Service support , Abdomen/Pelvis CT 06/10/19 20:27 IMPRESSION: Adequate position of percutaneous gastrostomy tube. Left and right lower lobe collapse with pleural effusions. Additional lung disease. Scarring within the right anterior abdominal wall with some metal and/or a broken catheter extending away from this scarring. There may be fluid centrally within the scarring. It is the same as previously. Left-sided colostomy. Bilateral inguinal hernias unchanged. Body wall edema similar. Soft tissue, likely fluid standings the rectum and the remaining portions of the sigmoid colon that have a blind ceil beginning. This is unchanged. Individualized dose optimization techniques were used for this CT. at 2344 Reported and signed by: Bakari Thacker MD Electronically Signed: Bakari Thacker MD at 23:43 EDT Tel , Service support , Chest X-Ray 06/12/19 07:39 IMPRESSION: Limited inspiratory effort. Blunting of the right costophrenic angle with increased linear markings at the left lung base suggestive of a right basilar atelectasis and/or early infiltrate. Electronically Signed: Matti Greer, at 8:53 EDT , Service support , Chest CTA 06/12/19 12:15 IMPRESSION: Pulmonary emboli in branches of the left upper lobe pulmonary arterial branches. Small bilateral pleural effusions with bibasilar infiltration and/or atelectasis slightly worse on the left side with increased markings in the right middle lobe. Electronically Signed: Matti Greer at 14:51 EDT , Service support , Yovanny Moreira MD [place]: general surgery Operations: None Procedures: None Summary of Care Provided: The patient is a 39 year old M Presents with increased oxygen demands, decreased activity and bradycardia. Patient was found to have a pneumonia as well as pulmonary emboli in the left upper lobe pulmonary arterial branches. Patient's pneumonia was found to be pansensitive Pseudomonas as well as group C Streptococcus. Patient was on cefepime for a total of 7 days and completed that last evening. Patient has been stable on his a ventilator and his oxygen requirements have decreased. Case was discussed with his mother and the plan would be for him to continue with the apixaban. Anticipate the apixaban being continued for at least 6 months as this is unprovoked in a chronically bedridden individual probably more likely a lifelong need for this. Patient may follow-up with hematology to verify this as outpatient. Patient will follow-up with pulmonology as scheduled for next month but advised to contact before that to ensure that the office will still be open for visits and to follow-up with car diology in August that was already scheduled.[] Patient Problems: Active and Suspected Problems (Last Reviewed 03/24/19 @ 11:39 by Bella Angela) Pulmonary embolism (Acute) Severe sepsis (Acute) Pneumonia involving left lung (Acute) Hypothermia due to non-environmental cause (Acute) Sinus bradycardia by electrocardiogram (Acute) Acute and chronic respiratory failure with hypoxia (Acute) Hypotension (Acute) Septic shock (Acute) Seizure disorder (Acute) - Physical Exam Vitals/I&O's: Vital Signs Temp Pulse Resp BP Pulse Ox 36.4 C L 120 H 18 125/94 H 92 06/14/19 04:00 06/14/19 08:00 06/14/19 08:00 06/14/19 08:00 06/14/19 08:00 Oxygen Flow Rate (L/min) 2 Oxygen Delivery Method Mechanical Ventilator Weight: 77 kg Body Mass Index (BMI) 23.6 Finger Stick Blood Glucose 132 Intake and Output for Last 24 Hours 06/12/19 06/13/19 06/14/19 23:59 23:59 23:59 Intake Total 2286 / 3016 3844.25 / 3844.25 706.75 / 706.75 Output Total 250 / 450 825 / 825 300 / 300 Balance 2036 / 2566 3019.25 / 3019.25 406.75 / 406.75 General: Confused HEENT: Atraumatic, Normocephalic Oral: Moist Mucosa, No Gingival or Mucosal Lesions/ Ulcerations Neck: No Nodes, Trachea Midline Lungs: Clear to auscultation, Normal air movement, No rhonchi, No wheeze, No rales Cardiovascular: Regular rate, Regular Rhythm, Normal S1, Normal S2 Abdomen: Bowel Sounds Present, Soft, Non Tender, Non-Distended, No Hepato- splenomegaly Extremities: No edema, No Calf Tenderness Microbiology Past 72 Hours 06/12/19 13:20 Sputum, Induced/Lukens Gram Stain - Final 06/12/19 13:20 Sputum, Induced/Lukens Respiratory Culture - Preliminary Pseudomonas aeroginosa 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 Laboratory Results 06/14/19 04:20: WBC 5.8, RBC 3.12 L, Hgb 8.9 L, Hct 29.2 L, MCV 93.6, MCH 28.5, MCHC 30.5 L, RDW Std Deviation 54.1 H, RDW Coeff of Emilee 15.9 H, Plt Count 144 L, MPV 10.7, Immature Gran % (Auto) 0.200, Neut % (Auto) 49.8, Lymph % (Auto) 31.3, [place] % (Auto) 12.0 H, Eos % (Auto) 6.5 H, Baso % (Auto) 0.2, Absolute Neuts (auto) 2.9, Absolute Lymphs (auto) 1.83, Nucleated RBC % 0 06/14/19 04:20: Sodium 139, Potassium 4.4, Chloride 104, Carbon Dioxide 32.0, Anion Gap 3 L, BUN 23 H, Creatinine 0.39 L, Estim Creat Clear Calc 282.44, Est GFR (MDRD) Af Amer 324, Est GFR (MDRD) Non-Af 268, BUN/Creatinine Ratio 59.6 H, Glucose 88, Calcium 8.2 L Current Medications Acetaminophen (Tylenol) 650 mg RECTAL Q4H PRN PRN PRN Reason: Pain Score 1-10/Temp > 100.7 F Albuterol Sulfate (Ventolin Aerosols) 2.5 mg INHALATION Q2H PRN PRN PRN Reason: Dyspnea, wheezing Albuterol/Ipratropium (Duoneb) 3 ml INHALATION Q6HWA.RT [facility] Last Admin: 06/14/19 06:57 Dose: 3 ml Documented by: Apixaban (Eliquis) 10 mg GT BID [facility] Stop: 06/20/19 09:01 Last Admin: 06/13/19 21:56 Dose: 10 mg Documented by: Ascorbic Acid (Vitamin C) 500 mg GT DAILY [facility] Last Admin: 06/13/19 08:29 Dose: 500 mg Documented by: Atropine Sulfate () 1 mg IV X1 PRN PRN Reason: sustained bradycardia <30 Baclofen (Lioresal) 20 mg GT Q6H [facility] Last Admin: 06/14/19 03:57 Dose: 20 mg Documented by: Chlorhexidine Gluconate () 15 ml PO BID [facility] Last Admin: 06/13/19 21:59 Dose: 15 ml Documented by: Chlorhexidine Gluconate () 1 each TOPICAL DAILY [facility] Last Admin: 06/13/19 10:27 Dose: 1 each Documented by: Dextrose (D50w Syringe) 0 gm IV X1 PRN; Protocol PRN Reason: Hypoglycemia Doxazosin Mesylate (Cardura) 2 mg GT DAILY [facility] Last Admin: 06/13/19 10:31 Dose: 2 mg Documented by: Ferrous Sulfate (Ferrous Sulfate Syrup) 300 mg GT DAILY [facility] Last Admin: 06/13/19 08:29 Dose: 300 mg Documented by: Gabapentin (Neurontin) 500 mg PO Q6H [facility] Last Admin: 06/14/19 03:57 Dose: 500 mg Documented by: Glucagon () 1 mg IM .X1 PRN PRN Reason: Hypoglycemia Heparin Sodium (Beef Lung) () 50 units IV UD PRN PRN Reason: Port-a-Cath (VAD)Heparin Flush Hydralazine HCl (Apresoline Iv) 10 mg IV Q4H PRN PRN PRN Reason: SBP > 160 Sodium Chloride () 250 mls @ 15 mls/hr IV .[id number] PRN PRN Reason: Saline Flush Last Infusion: 06/14/19 07:27 Dose: Infused Documented by: Sodium Chloride () 250 mls @ 15 mls/hr IV .[id number] PRN PRN Reason: Additional IVPB Infusion Enteral Nutritional Formula (Jevity 1.5) 1,000 mls @ 50 mls/hr GT .Q20H [facility] Last Admin: 06/14/19 03:57 Dose: 50 mls/hr Documented by: Lansoprazole (Lansoprazole) 15 mg GT BID [facility] Last Admin: 06/13/19 21:56 Dose: 15 mg Documented by: Loratadine (Claritin) 10 mg GT DAILY [facility] Last Admin: 06/13/19 08:29 Dose: 10 mg Documented by: Lorazepam (Ativan) 1 mg GT Q8 PRN PRN Reason: AGITATION Last Admin: 06/04/19 19:43 Dose: 1 mg Documented by: Metoclopramide HCl (Reglan) 10 mg IV Q8 [facility] Last Admin: 06/14/19 06:16 Dose: 10 mg Documented by: Nystatin (Mycostatin Powder) 1 applic TOPICAL TID PRN PRN; Protocol PRN Reason: intertrigo Ondansetron HCl (Zofran) 4 mg IV Q8H PRN PRN PRN Reason: NAUSEA/VOMITING Phenobarbital (Phenobarbital) 60 mg GT BID [facility] Last Admin: 06/13/19 21:57 Dose: 60 mg Documented by: Polyethylene Glycol (Miralax) 17 gm GT TID [facility] Last Admin: 06/14/19 06:16 Dose: 17 gm Documented by: Prochlorperazine Edisylate (Compazine Iv) 5 mg IV Q4H PRN PRN PRN Reason: Breakthrough Nausea/Vomiting Last Admin: 06/10/19 11:45 Dose: 5 mg Documented by: Senna (Senokot) 1 tablet GT DAILY [facility] Last Admin: 06/13/19 08:29 Dose: 1 tablet Documented by: Simethicone (Mylicon) 40 mg GT Q8H [facility] Last Admin: 06/14/19 01:08 Dose: 40 mg Documented by: Sodium Chloride () 10 - 40 ml IV UD PRN PRN Reason: Port-a-Cath (VAD) Flush Last Admin: 06/14/19 06:16 Dose: 10 ml Documented by: Sodium Chloride (0.9% Nacl (Sterile) Posiflush) 10 - 40 ml IV UD PRN PRN Reason: Port access or dressing change Sodium Chloride () 10 - 40 ml IV UD PRN PRN Reason: SALINE FLUSH Call your doctor if you observe: Fever of 101 or Higher, Shortness of breath Additional Dressing/Incision Instructions:: reposition every 2 hours. Home Medications: Medications to take at Discharge Simethicone 40MG/0.6ML [Mylicon] 40 mg GT TID 11/09/13 Pantoprazole Sodium [Protonix] 20 ml GT BID 08/09/14 Phenobarbital 60 mg GT BID 02/19/17 Cetirizine HCl [Zyrtec] 10 ml GT DAILY 02/04/18 Lactobacillus Acidophilus [Acidophilus] 1 cap GT DAILY 02/04/18 Gabapentin 500 mg GT 4X/DAY 07/14/18 metoclopramide HCl 5 mg/5 mL oral solution 10 mg GT TID ml 09/16/18 Lorazepam [Ativan] 1 mg GT Q8 PRN 10/08/18 Cholecalciferol (Vitamin D3) [Vitamin D3] 5 ml GT DAILY 12/25/18 Cough Assist 1 dose .ROUTE .MEDSUPPLY 12/25/18 Ferrous Sulfate 5 ml GT DAILY 12/25/18 Furosemide 40 mg GT DAILY PRN 12/25/18 Potassium Chloride 1.5 ml GT DAILY PRN 12/25/18 oxygen concentrator 1 dose .ROUTE .MEDSUPPLY 12/25/18 Ascorbic Acid [Vitamin C] 500 mg PO DAILY #150 mls 12/27/18 doxazosin 2 mg tablet 2 mg PO DAILY tab 03/24/19 Baclofen [Ozobax] 20 mg GT 4X/DAY 05/09/19 Lactose-Reduced Food/Fiber [Jevity 1.2 South Liquid] 1,500 ml PO DAILY 05/09/19 Ondansetron HCl [Zofran] 5 ml PO DAILY PRN 05/09/19 Polyethylene Glycol 3350 [Miralax] 17 gm GT TID 05/09/19 Apixaban [Eliquis] 5 mg GT BID #60 tab 06/14/19 Following Prescrptions Were Given to Patient: Apixaban [Eliquis] 5 mg GT BID #60 tab Transmission Status: Pending to [facility] Primary Care Physician: Timmy Conn MD [Primary Care Provider] - Within 2 Weeks Please Follow Up With: Jacek Monsalve MD When: 07/12/2019. Already scheduled. Call to verify 1 week prior. Please Follow Up With: Maury Waite MD When: 09/15/2019. Already scheduled. Disposition: Home with Home Health Minutes spent on discharge:: 45 Patient Condition:: Fair Medical Necessity - Tobacco Use Smoking Status: Never smoker Tobacco Use: Non-smoker Meaningful Use Info Meaningful Use Diagnoses (Choose all that apply): None applicable Inpatient E&M: 97317 Disch Hosp
[2019-06-14] MEDS: Lansoprazole 15 MG Capsule.DR GT (09:49)
[2019-06-14] MEDS: Ferrous Sulfate 300 MG/5 ML UDC GT (09:49)
[2019-06-14] MEDS: Loratadine 10 MG Tablet GT (09:50)
[2019-06-14] MEDS: Doxazosin 1 MG Tablet 2 MG GT (09:50)
[2019-06-14] MEDS: APIXABAN 5 MG TABLET 10 MG GT (09:51)
[2019-06-14] MEDS: Ascorbic Acid 500 MG Tablet GT (09:51)
[2019-06-14] MEDS: Phenobarbital 20 MG/5 ML UDC 60 MG GT (10:00)
[2019-06-14] MEDS: Chlorhexidine 15 ML PO (10:11)
[2019-06-14] MEDS: CHLORHEXIDINE GLUC 2% CLOTH 1 EACH TOWELETTE TOPICAL (10:11)
--- NOTE | 2019-06-14 10:12 | CASEMGMT ---
Addendum entered by Veronica Oleary 06/14/19 10:28: LAYA faxed resumption of Home Health Order to [facility]. Original Note: Social Work Note Pt is discharging home today with resumption of services. LAYA placed a call to Trinity Conn at [facility] and left her a message that pt is going to be discharged home today. LAYA placed a call to [facility] and spoke with Nilda and let her know that pt is going to be discharged home today. Nilda states pt's mother had already called in today to let them know pt was going to be discharged home today. LAYA faxed discharge paperwork to pt Trinity Conn at [facility] and [facility]. Per ICU staff, pt's mother requested ambulance be arranged for transport home. Hand Buffer aware, will arrange transportation home. Plan: Home with resumption of services through [facility] and [facility] Veronica Oleary EMERY WHEEL MOLDER, ACCESS REP
--- NOTE | 2019-06-14 10:58 | NURSING ---
Called patients mom Matteo. Went over Discharge instructions and medications with her, questions answered and concerns addressed. Informed that transport is scheduled to [facility] at 11.
== END 2019-06-14 10:42 | disposition home health service (06) | DRG 870 ==
LOC: ED 06-04 01:30 → ICU 06-04 02:53
PROVIDERS: Internal Medicine Critical Care Medicine; Student in an Organized Health Care Education/Training Program; Admitting Provider Family Medicine; Emergency Provider Emergency Medicine; PCP Family Medicine
DX: A41.9 Sepsis, unspecified organism (principal); R65.21 Severe sepsis with septic shock; J15.1 Pneumonia due to Pseudomonas; J15.4 Pneumonia due to other streptococci; I26.99 Other pulmonary embolism without acute cor pulmonale; G80.0 Spastic quadriplegic cerebral palsy; J96.21 Acute and chronic respiratory failure with hypoxia; J96.22 Acute and chronic respiratory failure with hypercapnia; D61.818 Other pancytopenia; Z99.11 Dependence on respirator [ventilator] status; E87.0 Hyperosmolality and hypernatremia; E87.6 Hypokalemia; K31.84 Gastroparesis; R68.0 Hypothermia, not associated with low environmental temperature; R00.1 Bradycardia, unspecified; G40.909 Epilepsy, unspecified, not intractable, without status epilepticus; D50.9 Iron deficiency anemia, unspecified; F72 Severe intellectual disabilities; K21.9 Gastro-esophageal reflux disease without esophagitis; Z03.818 Encounter for observation for suspected exposure to other biological agents ruled out; Z93.3 Colostomy status; Z93.1 Gastrostomy status; Z93.0 Tracheostomy status; Z79.899 Other long term (current) drug therapy
CPT/HCPCS: 31720; 36591; 71045; 71275; 74018; 74177; 80048; 80053; 81001; 82533; 82728; 82962; 83605; 83615; 83690; 83735; 84100; 84145; 84443; 85025; 86140; 87040; 87070; 87077; 87086; 87186; 87205; 87449; 87493; 87506; 87633; 87635; 87641; 93005; 94002; 94003; 94640; 96360; 97110; 97161; 97166; 97802; 97803; 99285; J7030; J7040; J7050; Q9967; A4216; J1940; U0004

== ENCOUNTER → 2019-06-21 16:35 | Outpatient (CLI) | payer BC, MEDICAID, SELFPAY ==
[2019-06-06 14:48] VITALS: BMI 23.6
--- NOTE | 2019-06-21 16:41 | RAD_ITS ---
STUDY: X-RAY CHEST REASON FOR EXAM: Male, 39 years old. recent pneumonia TECHNIQUE: PA and lateral COMPARISON: June 12, 2019 FINDINGS: Diminished inspiratory effort is seen. There is mild right basilar atelectasis with slightly more pronounced consolidation in left lower lobe.. There are small bilateral pleural effusions. Mediport catheter seen on the right with tip in right atrium Heart is mildly enlarged.. Normal mediastinum and rachelle. Normal visualized pulmonary arteries. Normal visualized aortic arch and descending thoracic aorta. Tracheostomy noted in the midline. Normal visualized thoracic spine. Normal visualized ribs, clavicles, and shoulders. There is no demonstrated abnormality of the visualized soft tissue structures of the upper abdomen. There is slightly improved aeration bilaterally when compared with prior exam. RAD/Chest PA and Lateral IMPRESSION: Persistent mild right basilar atelectasis and more pronounced consolidation in left lower lobe slightly improved since prior exam Electronically Signed: Gerald Anne MD at 17:20 EDT , Service support ,
== END ==
PROVIDERS: PCP Family Medicine; Referring Provider Family Medicine; Visit Provider Family Medicine
DX: J18.9 Pneumonia, unspecified organism (principal)
CPT/HCPCS: 71046

== ENCOUNTER 2019-07-08 10:26 | Inpatient (IN) | payer BC, MEDICAID, SELFPAY ==
[2019-06-06 14:48] VITALS: BMI 23.6
[2019-07-08] VITALS (18 sets, daily range): BP systolic 75–142; BP diastolic 56–96; PULSE 46–117; RESP 12–22; TEMP 35.3–37.4; O2SAT 92–100; BMI 35.0; BMI 32.9; BMI 76.1
--- NOTE | 2019-07-08 10:48 | RAD_ITS ---
STUDY: X-RAY CHEST REASON FOR EXAM: Male, 39 years old. SOB TECHNIQUE: Frontal view COMPARISON: June 21, 2019 FINDINGS: Tracheostomy tube is in place. Right-sided venous port with tip at the proximal SVC. The lungs are not fully expanded. There is no demonstrated pleural abnormality. Normal size heart. Normal mediastinum and rachelle. Normal visualized pulmonary arteries. Normal visualized aortic arch and descending thoracic aorta. Normal visualized thoracic spine. Normal visualized ribs, clavicles, and shoulders. There is no demonstrated abnormality of the visualized soft tissue structures of the upper abdomen. RAD/Chest 1 View (Portable) IMPRESSION: No acute pulmonary pathology of the chest. Electronically Signed: Ruddy Longo DO at 12:38 EDT Tel [phone], Service support ,
--- NOTE | 2019-07-08 11:22 | ED.DCSUM_ITS ---
- ER Visit Summary Date of Service: 07/08/19 Chief Complaint: Agitated and fever History of Present Illness: The patient is a [address] Caceres. Patient has a history of severe CP and is quadriplegic with severe MR. Mother reports that patient was fine yesterday, but this morning he seemed to be agitated and his heart rate was elevated. States that initially she thought maybe his colostomy bag had been leaking. Because of this she change this and it did not improve. States her his heart rate was 1 35-1 40 and usually it was 65-80. She gave him a milligram of Ativan at 930 and he did not have any relief by jeyson Moody, and here for evaluation. Mother reports that his diaper was dry this morning and he had not urinated for 10 hours and they were concerned about this. He does have a history of urinary retention. However, he has now urinated. They report that his temperature is usually 97.9 and today it was 99.2. He does not have a cough. There is been no change in the secretions that they suctioned through his trach. He has not had any vomiting or diarrhea. Does not seem to have abdominal pain. Patient was admitted to the hospital from June 03 to June 13 in septic shock due to pneumonia. He was COVID negative then. However, he was found to have bilateral PEs while here and was placed on Lovenox. Physical Examination: Vitals: 99.3, 94/63, 111, 14, 97% on a vent through his trach.. General: Well-nourished and well-developed. Head: Normocephalic atraumatic. Neck: Supple, no lymphadenopathy. No JVD. Nontender. Cardiovascular: Tachycardic regular rhythm with a 2 out of 6 systolic murmur. Respiratory: No respiratory distress. Mild rhonchi bilaterally. Abdominal: Soft, nontender, nondistended, normal bowel sounds. No guarding, rebound, or peritoneal signs. Extremities: Nontender, no edema. Skin: Normal color, no rash. Neurologic: At baseline per mother. Test Results: CBC shows an H&H 10.3 and 32.0, platelets of 71. Chem-7 shows BUN of 20 and creatinine is 0.36. LFTs show an albumin 3.1, globulin 5.1, alk phos 195. Coags are normal. Lactic acid is 0.8. Phenobarbital level is 22.2. COVID is negative. Clinical Impression(s) from Imaging Studies Chest X-Ray 07/08/19 10:48 IMPRESSION: No acute pulmonary pathology of the chest. Electronically Signed: Ruddy Longo DO at 12:38 EDT Tel [phone], Service support , Emergency Department Course and Treatment: Patient was given a liter bolus of normal saline. He was given gabapentin and baclofen, scheduled meds through his PEG. He was also given Tylenol through his PEG. The patient's port did not work and required multiple doses of TPA with a prolonged period of letting this in place before it did start to work. During his stay in the emerge department the patient became much more comfortable after he urinated and his heart rate actually decreased back down to normal. Gradually his heart rate decreased and is now in the 40s. His blood pressure is decreased into the 70s to 80s systolic. His heart rate increases back up into the 60s when he is stimulated. He was given half a milligram of Ativan IV. Treatment Plan: Patient was discussed with Dr. Randle. He will be admitted to the hospital for further evaluation and treatment. Disposition: Admitted in improved, but serious condition. Impression: 1. Urinary retention. 2. Bradycardia. 3. Hypertension. This note was generated with [employer] software. It may contain incorrect words, spelling, and punctuation that were not noted in review of the chart prior to signing ED Disposition - Plan for ED Patient: Disposition: Acute Care [facility]
[2019-07-08 12:15] LABS: Bacteria 0 SEEN /hpf (None Seen); Mucous, Urine 0 SEEN /hpf (<or=2+); Red Blood Cells-Urine 0 SEEN /hpf (0-5); Squamous Epithelial Cells - UA 0 SEEN /hpf (0-5)
[2019-07-08] MEDS: Baclofen 10 MG Tablet 20 MG GT ×2 (12:20→22:38)
[2019-07-08 12:21] LABS: Color, Urine Yellow (Yellow); Glucose, Dipstick Normal (Normal); Ketone-Dipstick Negative (Negative); Leukocyte Esterase-Dipstick Negative /ul (Negative); Nitrite-Dipstick Negative (Negative); Occult Blood-Urine Negative /ul (Negative); Protein-Dipstick Negative (Negative); Specific Gravity, Urine 1.015 (1.002-1.030); Urine Bilirubin Dipstick Negative (Negative); Urine Clarity Clear (Clear); Urine Urobilinogen Normal (Normal)
[2019-07-08] MEDS: Acetaminophen 500 MG Tablet 1000 MG PO (12:21)
[2019-07-08] MEDS: Gabapentin 800 MG Tablet 400 MG GT (12:21)
[2019-07-08 12:27] LABS: White Blood Cells 0-5 SEEN /hpf (0-5)
[2019-07-08] MEDS: Alteplase 2 MG/2 ML Vial IV ×2 (15:00→16:15)
[2019-07-08 16:11] LABS: Absolute Lymphocyte Count 1.74 X10^3/uL (0.83-4.51); Absolute Neutrophil Count 3.1 X10^3/uL (2.0-7.7); Basophil# 0.01 X10^3/uL; Basophil% 0.2 % (0-1); Eosinophil# 0.15 X10^3/uL; Eosinophils% 2.7 % (0-5); Hemoglobin 10.3 g/dL (13.0-16.5); Lymphocyte # 1.74 X10^3/ul (4.0); Lymphocyte % 31.6 % (19-41); Mean Corp Hgb Conc 32.2 g/dL (32-36); Mean Corpuscular Hgb 28.5 pg (27.0-32.0); Mean Corpuscular Volume 88.4 fL (80-94); Mean Platelet Vol. 11.2 fl (6.2-12.0); Monocyte# 0.53 X10^3/uL; Monocyte% 9.6 % (0-10); NRBC Flagged by Analyzer 0 % (0-5); Neutrophil # 3.07 X10^3/uL (2.7-7.7); Neutrophil % 55.7 % (47-70); POSITIVE COUNT YES; Platelet Count 71 K/mm3 (150-450); RBC Distribution Width CV 13.8 % (11.6-14.6); Red Blood Count 3.62 M/mm3 (4.6-6.2); White Blood Count 5.5 K/mm3 (4.4-11.0)
[2019-07-08 16:13] LABS: Differential Indicated SCAN CRITERIA MET
[2019-07-08 16:14] LABS: International Normalized Ratio 1.1
[2019-07-08 16:15] LABS: Partial Thromboplast Time 48.8 Seconds (24.1-36.2)
[2019-07-08 16:34] LABS: ALB/GLOB Ratio 0.6 RATIO (0.9-2.4); AST(SGOT) 22 U/L (15-37); Alanine Aminotransfer ALT/SGPT 37 U/L (16-61); Albumin, Serum 3.1 g/dL (3.2-5.0); Alkaline Phosphatase 195 U/L (45-117); Anion Gap 4 (5-15); BUN 20 mg/dL (7-18); Calcium,Total 8.8 mg/dL (8.5-10.1); Chloride 104 mmol/L (98-107); Creatinine, Serum 0.36 mg/dL (0.70-1.30); EST Glomerular Filtration Rate 293 mL/min (>60); Est Glom Filt Rate - Afr Amer 354 mL/min (>60); Estimated Creatinine Clearance 198.69 ml/min; Globulin 5.1 g/dL (2.2-4.2); Glucose 94 mg/dL (74-106); Potassium 4.1 mmol/L (3.5-5.1); Protein, Total 8.2 g/dL (6.4-8.2); Sodium Level 136 mmol/L (136-145)
[2019-07-08 16:43] LABS: Differential Comment SCANNED
[2019-07-08] MEDS: 0.9% Normal Saline 1,000 ML 999 ML IV ×2 (17:11→21:07)
[2019-07-08 17:34] LABS: Cholesterol 183 mg/dL (200); High Density Lipoprotein 48 mg/dL; Triglycerides 192 mg/dL; Very Low Density Lipoprotein 38 mg/dL (5-40)
[2019-07-08 17:48] LABS: Lactic Acid 0.8 mmol/L (0.4-1.9)
[2019-07-08 17:56] LABS: Ferritin 54 ng/mL (26-388); Iron 36 ug/dL (65-175); Iron Binding Capacity,Total 361 ug/dL (250-450)
[2019-07-08] MEDS: Atropine Sulfate 1 MG/10 ML Syringe 0.5 MG IV (19:14)
--- NOTE | 2019-07-08 19:15 | PCM.HP.STD ---
Problem List (1) Hypotension Status: Acute Qualifiers: Hypotension type: unspecified hypotension type Qualified Code(s): I95.9 - Hypotension, unspecified (2) Bradycardia Status: Acute (3) Pulmonary embolism Status: Chronic Qualifiers: Pulmonary embolism type: unspecified Chronicity: unspecified Acute cor pulmonale presence: unspecified Qualified Code(s): I26.99 - Other pulmonary embolism without acute cor pulmonale (4) Seizure disorder Status: Chronic (5) Nonrheumatic mitral valve prolapse Status: Chronic (6) Iron deficiency anemia Status: Chronic Qualifiers: Iron deficiency anemia type: unspecified iron deficiency Qualified Code(s): D50.9 - Iron deficiency anemia, unspecified (7) Chronic respiratory failure Status: Chronic Qualifiers: Respiratory failure complication: hypoxia and hypercapnia Qualified Code(s): J96.11 - Chronic respiratory failure with hypoxia; J96.12 - Chronic respiratory failure with hypercapnia (8) Cerebral palsy Status: Chronic Qualifiers: Cerebral palsy type: spastic quadriplegic Qualified Code(s): G80.0 - Spastic quadriplegic cerebral palsy Comment: Quadriplegic Severe mental retardation Chronic constipation PEG tube History of Present Illness Date of Admission: 07/08/19 Chief Complaint: Agitation, fever, bradycardic The patient is a 39 y/o M w/ PMHx: Chronic anemia, Chronic Hypoxic and Hypercarbic Respiratory Failure on Chronic Ventilation following w/ Dr. Monsalve, Cerebral Palsy with quadriplegia w/ hx baclofen pump, colostomy, chronic catheter, frequent difficulties with aspiration, G-J tube in place, Seizure disorder, recently admitted with prolonged admission 06/04/19-06/14/19, treated for pneumonia, septic shock, pulmonary embolism, hypothermia secondary to sepsis, sinus bradycardia felt secondary to sepsis who now re-presents to the [facility] ED on 07/08/19 with history of onset this am increased agitation and recurrent bradycardia in addition to onset urinary retention with low grade temperature 99.2 at home with no change in his secretions or cough, no emesis nor increased ostomy output or change in consistency but given not improving patient returned for evaluation with his parents. Work-up in the ED included temporal T 96.1, heart rate ranging 46-64, BP 77/59 initially 87/74 in the ED, respiratory rate 12, 95% on 35% FiO2, CBC with WBC 5.5, hemoglobin 10.3, platelet 71 with no market shift nor lymphopenia, coags with PT 14, INR 1.1, PTT 48.8, CMP with BUN/creatinine 20/0.36, iron 36, TIBC 361, iron saturation 10, ferritin 54, hepatic profile remarkable for alk phos 195, urinalysis unremarkable despite recent history of urinary retention, phenobarbital level 22.2, coronavirus PCR negative, urine culture and blood culture pending per ED, chest x-ray with no acute cardiopulmonary findings. Unable to access his port initially but improved with intervention. He urinated while in the ED and he initially improved; however, BP 70-80, normally SBP 100. In the ED patient administered 1L NS. Past Medical History Past Medical History (Chronic Problems): Chronic Problems (Last Reviewed 03/24/19 @ 11:39 by Bella Angela) Pulmonary embolism (Chronic) Anemia (Chronic) Seizure disorder (Chronic) Nonrheumatic mitral valve prolapse (Chronic) Iron deficiency anemia (Chronic) Chronic respiratory failure (Chronic) Cerebral palsy (Chronic) Quadriplegic Severe mental retardation Chronic constipation PEG tube Edema (Chronic) Medical History: Medical History (Last Reviewed 03/24/19 @ 11:39 by Bella Angela) Nonrheumatic mitral valve prolapse (Chronic) I34.1 Iron deficiency anemia (Chronic) D50.9 Hypokalemia (Resolved) E87.6 Chronic respiratory failure (Chronic) J96.10 Cerebral palsy (Chronic) G80.9 Quadriplegic Severe mental retardation Chronic constipation PEG tube Edema (Chronic) R60.9 Aspiration pneumonia J69.0 Debility R53.81 History of seizure disorder Z86.69 Obesity E66.9 Redundant colon Q43.[address] Z93.0 SIRS (systemic inflammatory response syndrome) R65.10 Allergies cisapride monohydrate [From Propulsid] Allergy (Verified 06/04/19 00:05) Rash codeine Adverse Reaction (Verified 06/04/19 00:05) hallucinations metronidazole [From Flagyl] Adverse Reaction (Verified 06/04/19 00:05) Rash morphine Adverse Reaction (Verified 06/04/19 00:05) Hallucinations dust Allergy (Uncoded 06/04/19 00:05) Other Home Medications: Ambulatory Orders Medication Instructions Recorded Simethicone 40MG/0.6ML [Mylicon] 40 mg GT TID 11/09/13 Pantoprazole Sodium [Protonix] 20 ml GT BID 08/09/14 Phenobarbital 60 mg GT BID 02/19/17 Cetirizine HCl [Zyrtec] 10 ml GT DAILY 02/04/18 Lactobacillus Acidophilus 1 cap GT DAILY 02/04/18 [Acidophilus] Gabapentin 500 mg GT 4X/DAY 07/14/18 metoclopramide HCl 5 mg/5 mL oral 10 mg GT TID ml 09/16/18 solution Lorazepam [Ativan] 1 mg GT Q8 PRN 10/08/18 Cholecalciferol (Vitamin D3) 5 ml GT DAILY 12/25/18 [Vitamin D3] Cough Assist 1 dose .ROUTE .MEDSUPPLY 12/25/18 Ferrous Sulfate 5 ml GT DAILY 12/25/18 Furosemide 40 mg GT DAILY PRN 12/25/18 Potassium Chloride 1.5 ml GT DAILY PRN 12/25/18 oxygen concentrator 1 dose .ROUTE .MEDSUPPLY 12/25/18 Ascorbic Acid [Vitamin C] 500 mg PO DAILY #150 mls 12/27/18 doxazosin 2 mg tablet 2 mg PO DAILY tab 03/24/19 Baclofen [Ozobax] 20 mg GT 4X/DAY 05/09/19 Lactose-Reduced Food/Fiber [Jevity 1,500 ml PO DAILY 05/09/19 1.2 South Liquid] Ondansetron HCl [Zofran] 5 ml PO DAILY PRN 05/09/19 Polyethylene Glycol 3350 [Miralax] 17 gm GT TID 05/09/19 Doxazosin Mesylate [Cardura Xl] 4 mg PO DAILY #30 tab.er.24 07/08/19 Enoxaparin [Lovenox] 70 mg SUBCUT Q12@0600,1800 07/08/19 Surgical History: Surgical History (Last Reviewed 03/24/19 @ 11:39 by Bella Angela) Colostomy in place Z93.3 Heel cord lengthening bilaterally History of colostomy History of gastrostomy tube placement History of open reduction and internal fixation (ORIF) procedure Z98.890 left hip History of soft tissue release Bilateral hips and knees Status post insertion of intrathecal baclofen pump Z96.89 status post removal in March 2018. Surgical History: - - Baclofen pump, colostomy, G-tube, tracheostomy Psychiatric History: No pertinent psych hx Lives: With Family Smoking Status: Never smoker Tobacco Use: Non-smoker Alcohol: None Drugs: None - *Family History Maternal Family History: Family History (Last Reviewed 03/24/19 @ 11:39 by Bella Angela) Mother Hypertension Hepatitis C Father Hypertension Atrial fibrillation CAD (coronary artery disease) History Items: - - Mother with history of hypertension hepatitis C. Paternal Family History: Family History (Last Reviewed 03/24/19 @ 11:39 by Bella Angela) Mother Hypertension Hepatitis C Father Hypertension Atrial fibrillation CAD (coronary artery disease) History Items: - - Father with history of hypertension, coronary disease and atrial fibrillation. Review of Systems Constitutional: Reports: Fever - Low-grade temperature at home, afebrile in the ED., Malaise, Weakness, Fatigue - Initially agitated earlier in the day but however very fatigued in the ED.. Denies: Anorexia, Chills, Weight Change HEENT: Denies: Head Aches, Sinus Congestion, Sinus Drainage Cardiovascular: Denies: Chest Pain, Palpitations Respiratory: Denies: Cough, Shortness of breath at rest, Sputum production Gastrointestinal: Denies: Abdominal Pain, Constipation, Diarrhea, Nausea, Vomiting Genitourinary: Denies: Dysuria Musculoskeletal: Denies: Joint Pain, Joint Tenderness Skin: Denies: Rash, Skin Changes, Wounds Neurological: Reports: Seizures - History of seizures with no recent activity.. Denies: Focal weakness, Numbness, Tingling Psychiatric: Reports: - - Increased agitation earlier in the day.. Denies: Depression, Homicidal Ideations, Suicidal Ideations Hematologic/ Lymphatic: Reports: Anemia. Denies: Easy Bruising, Easy Bleeding Unable to obtain accurate/complete ROS d/t: ROS given per patient parents who are his caregivers, he is nonverbal. VTE Information - Inpt Only VTE Present on Admission: No VTE Mechan Device Prophylaxis: SCD's VTE Pharm Prophylaxis ordered?: Yes Patient Problems: Active and Suspected Problems (Last Reviewed 03/24/19 @ 11:39 by Bella Angela) Bradycardia (Acute) Subjective: Patient laying in the ED bed, ventilated, nonverbal, severe MRDD status, currently no distress, hypotensive with systolic in the 70s but MAP 66, heart rate currently in the 40s to 50s during evaluation. Objective: Physical Examination: General: Patient awakens to stimuli but not at normal baseline, more lethargic than normal, nonverbal, unable to answer any orientation questions, severe MRDD with cerebral palsy with quadriplegia, no distress apparent. Skin: normal color, turgor, no icterus, cyanosis. HEENT: AT/NC, unable to assess EOM, PERRLA, no carotid bruits or JVD noted, tracheostomy in place, chronically protruded tongue some secretions, dry. Lungs: Diminished breath sounds, > bases, trach in place, vented, no wheezing, rhonchi or rales noted. Heart: Bradycardic with regular rhythm; no gallop, rub audible. Abdomen: soft, NTTP although does have chronic grimace with any abdominal evaluation, output noted in the ostomy, chronically mildly distended and stable appearance from previous examinations, LLQ w/ ostomy, mildly decreased BS currently, difficult to assess HSM secondary to habitus. Extremities: no cyanosis, chronic BL LE pedal and hand mild edema, non-pitting, quadriplegic status. Neurological: Patient awakens to stimuli but not at normal baseline, more lethargic than normal, nonverbal, unable to answer any orientation questions, severe MRDD with cerebral palsy with quadriplegia, no distress apparent; cognitive function decreased from baseline intact per family; pupils equally reactive to light and accomodation; cranial nerves difficult to assess given MRDD quadriplegic status, strength severely globally decreased. Psychiatric: affect appears lethargic, flat, no acute evidence of depressive or anxiety feelings although was initially agitated earlier in the day. - Physical Exam Vitals/I&O's: Vital Signs Temp Pulse Resp BP Pulse Ox 96.1 F L 47 L 12 87/74 L 95 07/08/19 15:58 07/08/19 17:45 07/08/19 17:45 07/08/19 15:58 07/08/19 17:45 Oxygen Delivery Method Mechanical Ventilator Weight: 179 lb 7.3 oz Body Mass Index (BMI) 35.0 Finger Stick Blood Glucose 132 Intake and Output for Last 24 Hours 07/06/19 07/07/19 07/08/19 23:59 23:59 23:59 Intake Total 1000 / 1000 Balance 1000 / 1000 Microbiology Past 72 Hours 07/08/19 11:15 Mucosa - Other Coronavirus COVID-19 PCR - Final Laboratory Results 07/08/19 11:15: COVID-19 (YAYO) Cancelled 07/08/19 12:10: Urine Color Yellow, Urine Clarity Clear, Urine pH 8.0, Ur Specific [place] 1.015, Urine Protein Negative, Urine Glucose (UA) Normal, Urine Ketones Negative, Urine Occult Blood Negative, Urine Nitrite Negative, Urine Bilirubin Negative, Urine Urobilinogen Normal, Ur Leukocyte Esterase Negative, Urine RBC 0 SEEN, Urine WBC 0-5 SEEN, Ur Squamous Epith Cells 0 SEEN, Urine Bacteria 0 SEEN, Urine Mucus 0 SEEN 07/08/19 15:49: WBC 5.5, RBC 3.62 L, Hgb 10.3 L, Hct 32.0 L, MCV 88.4, MCH 28.5, MCHC 32.2, RDW Std Deviation 45.0 H, RDW Coeff of Emilee 13.8, Plt Count 71 L, MPV 11.2, Immature Gran % (Auto) 0.200, Neut % (Auto) 55.7, Lymph % (Auto) 31.6, Stevens % (Auto) 9.6, Eos % (Auto) 2.7, Baso % (Auto) 0.2, Absolute Neuts (auto) 3.1, Absolute Lymphs (auto) 1.74, Nucleated RBC % 0, Differential Comment SCANNED 07/08/19 15:49: PT 14.0, INR 1.1, APTT 48.8 H 07/08/19 15:49: Sodium 136, Potassium 4.1, Chloride 104, Carbon Dioxide 28.0, Anion Gap 4 L, BUN 20 H, Creatinine 0.36 L, Estim Creat Clear Calc 198.69, Est GFR (MDRD) Af Amer 354, Est GFR (MDRD) Non-Af 293, BUN/Creatinine Ratio 56.0 H, Glucose 94, Calcium 8.8, Total Bilirubin 0.20, AST 22, ALT 37, Alkaline Phosphatase 195 H, Total Protein 8.2, Albumin 3.1 L, Globulin 5.1 H, Albumin/Globulin Ratio 0.6 L 07/08/19 15:49: Triglycerides 192, Cholesterol 183, LDL Cholesterol 97, VLDL Cholesterol 38, HDL Cholesterol 48 07/08/19 15:49: Iron 36 L, TIBC 361, Iron Saturation 10.0 L, Ferritin 54 07/08/19 17:00: Lactic Acid 0.8 07/08/19 17:00: Phenobarbital 22.2 Assessment/Plan All Active Problems (Last Reviewed 03/24/19 @ 11:39 by Bella Angela) Bradycardia (Acute) Severe sepsis (Acute) Pneumonia involving left lung (Acute) Hypothermia due to non-environmental cause (Acute) Sinus bradycardia by electrocardiogram (Acute) Acute and chronic respiratory failure with hypoxia (Acute) Hypotension (Acute) Septic shock (Acute) Hypokalemia (Resolved) Acute respiratory failure with hypoxia (Resolved) C. difficile colitis (Resolved) C. difficile colitis (Resolved) GJ malfunction (Resolved) Pneumonia (Resolved) Preop cardiovascular exam (Resolved) Sepsis (Resolved) Severe sepsis (Ruled-out) Viral syndrome (Ruled-out) The patient is a 39 y/o M w/ PMHx: Chronic anemia, Chronic Hypoxic and Hypercarbic Respiratory Failure on Chronic Ventilation, Cerebral Palsy with quadriplegia, Seizure disorder, recently admitted with prolonged admission 06/04/19-06/14/19, treated for pneumonia, septic shock, pulmonary embolism, hypothermia secondary to sepsis, sinus bradycardia felt secondary to sepsis who now re-presents to the [facility] ED on 07/08/19 with history of onset this am increased agitation and recurrent bradycardia in addition to onset urinary retention with low grade temperature 99.2 at home with no change in his secretions or cough. 1. Hypotensive, Bradycardic, Low Grade Temperature (? SIRS, Unclear etiology): CXR unremarkable, UA unremarkable although was retaining, improved in the ED initially but recurrent bradycardia below resting baseline as well as ongoing hypotension SBP 70s, will admit to the ICU to be cautious, maintain on aspiration, fall precautions, administer additional NS 1 L bolus and MIVF, obtain mag, TSH levels, repeat CXR in AM, plan repeat CBC, CMP in AM, obtain AM EKG, monitor UOP for further transient retention, resume otherwise home medications, hold as needed, continue with ICU physician consultation. If needed, ongoing bradycardia may consider Cardiology involvement (Dr. Waite) per family strong request. Temporarily hold patient lasix, resume once improved. 2. Thrombocytopenia, Acute: Noted to have transiently prior admission, improved but had hold at that time on lovenox with transition at that time to oral anticoagulant given PE findings; however, now noting Plts 71, will need to continue to closely monitor. 3. Pulmonary embolism, recent history of: We will continue patient therapeutic Lovenox as had been noted to be previously on oral anticoagulant newer agent but was felt not compatible with patient antiseizure medications therefore he was transitioned. Given patient thrombocytopenia we will continue to closely monitor CBC. 4. Chronic normocytic anemia, Fe deficiency anemia: Admission Hgb 10.3, baseline appears 8-9, iron 36, TIBC 361, iron saturation 10, ferritin 54 obtained in the ED, continued Fe supplementation. 5. Spastic quadriplegia with cerebral palsy: Colostomy in place, continue GJ tube feeds, barrier cream as needed, wound RN for ostomy care as needed, aspiration precautions, continue home baclofen regimen. 6. Seizure disorder: We will continue home phenobarbital, gabapentin with hold as needed pending blood pressure assessment. 7. GERD: We will maintain on home Protonix regimen. 8. DVT prophylaxis: SCDs, pubic Lovenox. 9. CODE status: Patient parents present, patient FULL Code. Inpatient E&M: 02152 Init Hosp L3
--- NOTE | 2019-07-08 21:37 | ED.RN ---
500 ml bag infusing while sent to ICU.
[2019-07-08 21:42] LABS: T4 Free Direct 1.08 ng/dL (0.76-1.46)
[2019-07-08] MEDS: Ondansetron 4 MG/2 ML Vial IV (21:58)
[2019-07-08] MEDS: 0.9% Normal Saline 1,000 ML 125 ML IV (22:03)
[2019-07-08] MEDS: Simethicone 40MG/0.6ML Bottle 40 MG GT (22:35)
[2019-07-08] MEDS: Phenobarbital 20 MG/5 ML UDC 60 MG GT (22:35)
[2019-07-08] MEDS: Polyethylene Glycol 3350 17 GM PACKET GT (22:37)
[2019-07-08] MEDS: Gabapentin 100 MG Capsule 500 MG GT (22:37)
[2019-07-08] MEDS: Lansoprazole 15 MG Capsule.DR GT (22:38)
[2019-07-08] MEDS: Jevity 1.5 1,000 ML 50 ML GT (22:38)
[2019-07-08] MEDS: Metoclopramide 10 MG Tablet GT (22:39)
[2019-07-08] MEDS: Albuterol 2.5 MG/3 ML VIAL.NEB. INHALATION (23:37)
[2019-07-09] VITALS (35 sets, daily range): BP systolic 87–149; BP diastolic 48–121; PULSE 66–164; RESP 10–37; TEMP 36.4–38.6; O2SAT 91–99
[2019-07-09] MEDS: Albuterol 2.5 MG/3 ML VIAL.NEB. INHALATION (02:36)
[2019-07-09] MEDS: LORazepam 1 MG Tablet GT ×2 (03:10→11:27)
--- NOTE | 2019-07-09 04:05 | RAD_ITS ---
STUDY: X-RAY CHEST REASON FOR EXAM: Male, 39 years old. COUGH TECHNIQUE: Frontal view COMPARISON: July 08, 2019 FINDINGS: Tracheostomy tube in place. Right venous port is stable. The lungs are not fully expanded. Right basilar atelectasis. Normal size heart. Normal mediastinum and rachelle. Normal visualized pulmonary arteries. Normal visualized aortic arch and descending thoracic aorta. Normal visualized thoracic spine. Normal visualized ribs, clavicles, and shoulders. There is no demonstrated abnormality of the visualized soft tissue structures of the upper abdomen. RAD/Chest 1 View (Portable) IMPRESSION: Right basilar atelectasis. Electronically Signed: Ruddy Longo DO at 17:37 EDT Tel [phone], Service support ,
--- NOTE | 2019-07-09 04:15 | RAD_ITS ---
STUDY: X-RAY - ABDOMEN/PELVIS REASON FOR EXAM: Male, 39 years old. EMESIS TECHNIQUE: 3 views COMPARISON: None. FINDINGS: Normal visualized lung bases. There is an ileus pattern. There is no demonstrated free abdominal air. There is an ostomy apparatus over the left lower quadrant. Normal soft tissue structures. Scoliosis. Chronic deformity and dislocation of the left hip with possible pseudoarthrosis. Generalized osteopenia. RAD/Abdomen Single View (Portable) IMPRESSION: Probable mild ileus. No sign of bowel obstruction. Electronically Signed: Ruddy Longo DO at 17:41 EDT Tel [phone], Service support ,
[2019-07-09] MEDS: 0.9% Normal Saline 1,000 ML 125 ML IV (04:39)
[2019-07-09 05:03] LABS: Absolute Lymphocyte Count 1.36 X10^3/uL (0.83-4.51); Absolute Neutrophil Count 2.4 X10^3/uL (2.0-7.7); Basophil# 0.01 X10^3/uL; Basophil% 0.2 % (0-1); Eosinophil# 0.13 X10^3/uL; Eosinophils% 3.1 % (0-5); Hematocrit 30.8 % (40-54); Hemoglobin 9.7 g/dL (13.0-16.5); Lymphocyte # 1.36 X10^3/ul (4.0); Lymphocyte % 32.1 % (19-41); Mean Corp Hgb Conc 31.5 g/dL (32-36); Mean Corpuscular Hgb 28.5 pg (27.0-32.0); Mean Corpuscular Volume 90.6 fL (80-94); Mean Platelet Vol. 11.4 fl (6.2-12.0); Monocyte# 0.37 X10^3/uL; Monocyte% 8.7 % (0-10); NRBC Flagged by Analyzer 0 % (0-5); Neutrophil # 2.36 X10^3/uL (2.7-7.7); Neutrophil % 55.7 % (47-70); POSITIVE COUNT YES; Platelet Count 75 K/mm3 (150-450); RBC Distribution Width CV 14.1 % (11.6-14.6); RBC Distribution Width SD 46.7 fl (35.1-43.9); White Blood Count 4.2 K/mm3 (4.4-11.0)
[2019-07-09 05:24] LABS: Differential Indicated SCAN CRITERIA MET
[2019-07-09 05:40] LABS: ALB/GLOB Ratio 0.6 RATIO (0.9-2.4); AST(SGOT) 23 U/L (15-37); Alanine Aminotransfer ALT/SGPT 35 U/L (16-61); Albumin, Serum 2.9 g/dL (3.2-5.0); Alkaline Phosphatase 182 U/L (45-117); Anion Gap 5 (5-15); BUN 13 mg/dL (7-18); BUN/Creat Ratio 44.2 RATIO (10-20); Calcium,Total 8.2 mg/dL (8.5-10.1); Chloride 108 mmol/L (98-107); Creatinine, Serum 0.29 mg/dL (0.70-1.30); EST Glomerular Filtration Rate 366 mL/min (>60); Est Glom Filt Rate - Afr Amer 443 mL/min (>60); Globulin 4.9 g/dL (2.2-4.2); Glucose 77 mg/dL (74-106); Potassium 3.8 mmol/L (3.5-5.1); Protein, Total 7.8 g/dL (6.4-8.2); Sodium Level 141 mmol/L (136-145)
[2019-07-09] MEDS: Enoxaparin 80 MG/0.8 ML Syringe 70 MG SC ×2 (05:54→18:41)
[2019-07-09] MEDS: Simethicone 40MG/0.6ML Bottle 40 MG GT ×3 (05:55→22:58)
[2019-07-09] MEDS: Metoclopramide 10 MG Tablet GT ×3 (05:55→22:57)
[2019-07-09] MEDS: Polyethylene Glycol 3350 17 GM PACKET GT ×3 (05:55→22:57)
--- NOTE | 2019-07-09 05:55 | EKG12_ITS ---
Test Reason : AM EKG Blood Pressure : / mmHG Vent. Rate : 099 BPM Atrial Rate : 099 BPM P-R Int : 130 ms QRS Dur : 098 ms QT Int : 366 ms P-R-T Axes : 048 -12 121 degrees QTc Int : 469 ms Sinus rhythm with Fusion complexes Low voltage QRS ST & T wave abnormality, consider anterolateral ischemia Prolonged QT Abnormal ECG When compared with ECG of 04-JUN-2019 00:12, Fusion complexes are now Present MI interval has decreased Vent. rate has increased BY 59 BPM Questionable change in QRS duration Confirmed by PATEL VARGAS, RACHELLE ([id number]), market editor MICHELLE PERKINS ([id number]) on 07/11/2019 3:50:31 PM Referred By: Tania Randle Confirmed By:RACHELLE SWEENEY MD
[2019-07-09 06:08] LABS: Platelet Estimate MOD DEC (ADEQ)
[2019-07-09] MEDS: Ondansetron 4 MG/2 ML Vial IV (06:21)
[2019-07-09] MEDS: proCHLORPERazine 10 MG/2 ML Vial IV (06:59)
--- NOTE | 2019-07-09 07:14 | PCM.CON.CC ---
Problem List (1) Bradycardia Status: Acute (2) Hypothermia due to non-environmental cause Status: Acute (3) Sinus bradycardia by electrocardiogram Status: Acute (4) Hypotension Status: Acute Qualifiers: Hypotension type: unspecified hypotension type Qualified Code(s): I95.9 - Hypotension, unspecified (5) Seizure disorder Status: Chronic (6) Nonrheumatic mitral valve prolapse Status: Chronic (7) Iron deficiency anemia Status: Chronic Qualifiers: Iron deficiency anemia type: unspecified iron deficiency Qualified Code(s): D50.9 - Iron deficiency anemia, unspecified (8) Chronic respiratory failure Status: Chronic Qualifiers: Respiratory failure complication: hypoxia and hypercapnia Qualified Code(s): J96.11 - Chronic respiratory failure with hypoxia; J96.12 - Chronic respiratory failure with hypercapnia (9) Cerebral palsy Status: Chronic Qualifiers: Cerebral palsy type: spastic quadriplegic Qualified Code(s): G80.0 - Spastic quadriplegic cerebral palsy Comment: Quadriplegic Severe mental retardation Chronic constipation PEG tube Reason for Consult Date of Consultation: 07/09/19 Reason for Consultation: Hypotension History of Present Illness: The patient is a 39 year old M, with past medical history listed below and well-known to me from the outpatient office, who presented to [facility] on 07/08/2019 secondary to agitation and tachycardia. This was originally thought to be secondary to a leaking colostomy bag, but after changing it did not improve. Patient was noted to have heart rates into the 130s to 140s. Patient was given Ativan without any significant improvement, so presented to the ER for evaluation. Patient reportedly had not urinated for 10 hours and does have a history of urinary retention. However, on presentation to the ER patient had urinated. Patient did not have any change in secretions reported. Patient was recently hospitalized in May and found to have bilateral PEs and was placed on Lovenox therapy. In the ER, patient was noted to be tachycardic at 111 bpm with a blood pressure of 94/63 on home ventilator. Laboratory work-up was relatively unremarkable except for some iron deficiency. COVID-19 was negative and phenobarbital was 22. Chest x-ray was negative. During patient's ER stay, patient's blood pressure started to drop into the 70s to 80s systolic. Patient was also noted to be bradycardic into the 40s. Patient was stimulated with some improvement, but was admitted to the intensive care unit for close observation. Since being in the intensive care unit, patient has remained hemodynamically stable. Blood pressures have been doing well. Patient saturating well on 35% FiO2 through our ventilator. Patient has not had any repeat bradycardic episodes and no urinary retention is been reported. Patient does have cultures pending. Patient was on IV fluids briefly until my arrival this morning. Patient readily making eye contact, but not smiling per usual. Unable to obtain a further review of systems secondary to baseline functioning and COVID-19 visitation policy Past Medical History Past Medical History (Chronic Problems): Chronic Problems (Last Reviewed 03/24/19 @ 11:39 by Bella Angela) Pulmonary embolism (Chronic) Anemia (Chronic) Seizure disorder (Chronic) Nonrheumatic mitral valve prolapse (Chronic) Iron deficiency anemia (Chronic) Chronic respiratory failure (Chronic) Cerebral palsy (Chronic) Quadriplegic Severe mental retardation Chronic constipation PEG tube Edema (Chronic) Medical History: Medical History (Last Reviewed 03/24/19 @ 11:39 by Bella Angela) Nonrheumatic mitral valve prolapse (Chronic) I34.1 Iron deficiency anemia (Chronic) D50.9 Hypokalemia (Resolved) E87.6 Chronic respiratory failure (Chronic) J96.10 Cerebral palsy (Chronic) G80.9 Quadriplegic Severe mental retardation Chronic constipation PEG tube Edema (Chronic) R60.9 Aspiration pneumonia J69.0 Debility R53.81 History of seizure disorder Z86.69 Obesity E66.9 Redundant colon Q43.[address] Z93.0 SIRS (systemic inflammatory response syndrome) R65.10 Allergies cisapride monohydrate [From Propulsid] Allergy (Verified 06/04/19 00:05) Rash codeine Adverse Reaction (Verified 06/04/19 00:05) hallucinations metronidazole [From Flagyl] Adverse Reaction (Verified 06/04/19 00:05) Rash morphine Adverse Reaction (Verified 06/04/19 00:05) Hallucinations dust Allergy (Uncoded 06/04/19 00:05) Other Home Medications: Ambulatory Orders Medication Instructions Recorded Simethicone 40MG/0.6ML [Mylicon] 40 mg GT TID 11/09/13 Pantoprazole Sodium [Protonix] 20 ml GT BID 08/09/14 Phenobarbital 60 mg GT BID 02/19/17 Cetirizine HCl [Zyrtec] 10 ml GT DAILY 02/04/18 Lactobacillus Acidophilus 1 cap GT DAILY 02/04/18 [Acidophilus] Gabapentin 500 mg GT 4X/DAY 07/14/18 metoclopramide HCl 5 mg/5 mL oral 10 mg GT TID ml 09/16/18 solution Lorazepam [Ativan] 1 mg GT Q8 PRN 10/08/18 Cholecalciferol (Vitamin D3) 5 ml GT DAILY 12/25/18 [Vitamin D3] Cough Assist 1 dose .ROUTE .MEDSUPPLY 12/25/18 Ferrous Sulfate 5 ml GT DAILY 12/25/18 Furosemide 40 mg GT DAILY PRN 12/25/18 Potassium Chloride 1.5 ml GT DAILY PRN 12/25/18 oxygen concentrator 1 dose .ROUTE .MEDSUPPLY 12/25/18 Ascorbic Acid [Vitamin C] 500 mg PO DAILY #150 mls 12/27/18 doxazosin 2 mg tablet 2 mg PO DAILY tab 03/24/19 Baclofen [Ozobax] 20 mg GT 4X/DAY 05/09/19 Lactose-Reduced Food/Fiber [Jevity 1,500 ml PO DAILY 05/09/19 1.2 South Liquid] Ondansetron HCl [Zofran] 5 ml PO DAILY PRN 05/09/19 Polyethylene Glycol 3350 [Miralax] 17 gm GT TID 05/09/19 Doxazosin Mesylate [Cardura Xl] 4 mg PO DAILY #30 tab.er.24 07/08/19 Enoxaparin [Lovenox] 70 mg SUBCUT Q12@0600,1800 07/08/19 Surgical History: Surgical History (Last Reviewed 03/24/19 @ 11:39 by Bella Angela) Colostomy in place Z93.3 Heel cord lengthening bilaterally History of colostomy History of gastrostomy tube placement History of open reduction and internal fixation (ORIF) procedure Z98.890 left hip History of soft tissue release Bilateral hips and knees Status post insertion of intrathecal baclofen pump Z96.89 status post removal in March 2018. Surgical History: - - Baclofen pump, colostomy, G-tube, tracheostomy Psychiatric History: No pertinent psych hx Lives: With Family Smoking Status: Never smoker Tobacco Use: Non-smoker Alcohol: None Drugs: None - *Family History Maternal Family History: Family History (Last Reviewed 03/24/19 @ 11:39 by Bella Angela) Mother Hypertension Hepatitis C Father Hypertension Atrial fibrillation CAD (coronary artery disease) History Items: - - Mother with history of hypertension hepatitis C. Paternal Family History: Family History (Last Reviewed 03/24/19 @ 11:39 by Bella Angela) Mother Hypertension Hepatitis C Father Hypertension Atrial fibrillation CAD (coronary artery disease) History Items: - - Father with history of hypertension, coronary disease and atrial fibrillation. Review of Systems Unable to obtain accurate/complete ROS d/t: See HPI Patient Problems: Active and Suspected Problems (Last Reviewed 03/24/19 @ 11:39 by Bella Angela) Bradycardia (Acute) Objective: All imaging was personally reviewed. Chest x-ray shows no acute infiltrate. - Physical Exam Vitals/I&O's: Vital Signs Temp Pulse Resp BP Pulse Ox 36.4 C L 95 13 142/108 H 94 07/09/19 00:00 07/09/19 06:00 07/09/19 06:00 07/09/19 06:00 07/09/19 06:00 Oxygen Delivery Method Mechanical Ventilator Weight: 77.7 kg Body Mass Index (BMI) 32.9 Finger Stick Blood Glucose 132 Intake and Output for Last 24 Hours 07/07/19 07/08/19 07/09/19 23:59 23:59 23:59 Intake Total 1000 / 1000 2467.08 / 2467.08 Output Total 180 / 180 Balance 1000 / 1000 2287.08 / 2287.08 General: Alert, Cooperative - To baseline status, No apparent distress, - - Good vent synchrony. Multiple contractures noted. HEENT: Atraumatic, PERRLA, EOMI, Normocephalic, - - Mild macroglossia Oral: Moist Mucosa, No Gingival or Mucosal Lesions/ Ulcerations Neck: Supple, No JVD, No Nodes, Trachea Midline, - - Trach is clean, dry and intact. Lungs: No rhonchi, No wheeze, No rales, Diminished, - - Symmetric expansion. Cardiovascular: Regular rate, Regular Rhythm, Normal S1, Normal S2, No murmurs, No rub noted, No Gallop Abdomen: Bowel Sounds Present, Soft, Non Tender, Obese, - - Ostomy appears functional with pink mucosa. Extremities: No clubbing, No cyanosis, Capillary Refill Less than 3 Seconds, Edema, - - Multiple contractures Skin: No rashes, No breakdown Musculoskeletal: No Tenderness to Palpation of Joints or Extremities Lymphatic: No Cervical, Supraclavicular, or Inguinal Adenopathy Neurological: - - Baseline neurologic status. Psych/Mental Status: Appropriate, Flat Affect Microbiology Past 72 Hours 07/08/19 11:15 Mucosa - Other Coronavirus COVID-19 PCR - Final Laboratory Results 07/08/19 11:15: COVID-19 (YAYO) Cancelled 07/08/19 12:10: Urine Color Yellow, Urine Clarity Clear, Urine pH 8.0, Ur Specific [place] 1.015, Urine Protein Negative, Urine Glucose (UA) Normal, Urine Ketones Negative, Urine Occult Blood Negative, Urine Nitrite Negative, Urine Bilirubin Negative, Urine Urobilinogen Normal, Ur Leukocyte Esterase Negative, Urine RBC 0 SEEN, Urine WBC 0-5 SEEN, Ur Squamous Epith Cells 0 SEEN, Urine Bacteria 0 SEEN, Urine Mucus 0 SEEN 07/08/19 15:49: WBC 5.5, RBC 3.62 L, Hgb 10.3 L, Hct 32.0 L, MCV 88.4, MCH 28.5, MCHC 32.2, RDW Std Deviation 45.0 H, RDW Coeff of [place] 13.8, Plt Count 71 L, MPV 11.2, Immature Gran % (Auto) 0.200, Neut % (Auto) 55.7, Lymph % (Auto) 31.6, [place] % (Auto) 9.6, Eos % (Auto) 2.7, Baso % (Auto) 0.2, Absolute Neuts (auto) 3.1, Absolute Lymphs (auto) 1.74, Nucleated RBC % 0, Differential Comment SCANNED 07/08/19 15:49: PT 14.0, INR 1.1, APTT 48.8 H 07/08/19 15:49: Sodium 136, Potassium 4.1, Chloride 104, Carbon Dioxide 28.0, Anion Gap 4 L, BUN 20 H, Creatinine 0.36 L, Estim Creat Clear Calc 198.69, Est GFR (MDRD) Af Amer 354, Est GFR (MDRD) Non-Af 293, BUN/Creatinine Ratio 56.0 H, Glucose 94, Calcium 8.8, Total Bilirubin 0.20, AST 22, ALT 37, Alkaline Phosphatase 195 H, Total Protein 8.2, Albumin 3.1 L, Globulin 5.1 H, Albumin/Globulin Ratio 0.6 L 07/08/19 15:49: Triglycerides 192, Cholesterol 183, LDL Cholesterol 97, VLDL Cholesterol 38, HDL Cholesterol 48 07/08/19 15:49: Iron 36 L, TIBC 361, Iron Saturation 10.0 L, Ferritin 54 07/08/19 17:00: Lactic Acid 0.8 07/08/19 17:00: Phenobarbital 22.2 07/08/19 17:00: Magnesium 2.0, TSH 1.10, Free T4 1.08 07/09/19 04:40: WBC 4.2 L, RBC 3.40 L, Hgb 9.7 L, Hct 30.8 L, MCV 90.6, MCH 28.5, MCHC 31.5 L, RDW Std Deviation 46.7 H, RDW Coeff of [place] 14.1, Plt Count 75 L, MPV 11.4, Immature Gran % (Auto) 0.200, Neut % (Auto) 55.7, Lymph % (Auto) 32.1, [place] % (Auto) 8.7, Eos % (Auto) 3.1, Baso % (Auto) 0.2, Absolute Neuts (auto) 2.4, Absolute Lymphs (auto) 1.36, Nucleated RBC % 0, Platelet Estimate MOD DEC 07/09/19 04:40: Sodium 141, Potassium 3.8, Chloride 108 H, Carbon Dioxide 28.0, Anion Gap 5, BUN 13, Creatinine 0.29 L, Estim Creat Clear Calc 383.29, Est GFR (MDRD) Af Amer 443, Est GFR (MDRD) Non-Af 366, BUN/Creatinine Ratio 44.2 H, Glucose 77, Calcium 8.2 L, Total Bilirubin 0.10 L, AST 23, ALT 35, Alkaline Phosphatase 182 H, Total Protein 7.8, Albumin 2.9 L, Globulin 4.9 H, Albumin/Globulin Ratio 0.6 L Current Medications Acetaminophen (Tylenol Liquid) 650 mg GT Q4H PRN PRN PRN Reason: fever, pain 1-10/ Albuterol Sulfate (Ventolin Aerosols) 2.5 mg INHALATION Q2H PRN PRN PRN Reason: SOB/Wheezing Last Admin: 07/09/19 02:36 Dose: 2.5 mg Documented by: Ascorbic Acid (Vitamin C) 500 mg PO DAILY [facility] Baclofen (Lioresal) 20 mg GT 4X/DAY [facility] Last Admin: 07/08/19 22:38 Dose: 20 mg Documented by: Dextrose (D50w Syringe) 0 gm IV X1 PRN; Protocol PRN Reason: Hypoglycemia Doxazosin Mesylate (Cardura) 2 mg GT DAILY [facility] Enoxaparin Sodium (Lovenox) 70 mg SC Q12@0600,1800 [facility] Last Admin: 07/09/19 05:54 Dose: 70 mg Documented by: Ferrous Sulfate (Ferrous Sulfate Syrup) 300 mg GT DAILY [facility] Gabapentin (Neurontin) 500 mg GT 4X/DAY [facility] Last Admin: 07/08/19 22:37 Dose: 500 mg Documented by: Glucagon () 1 mg IM .X1 PRN PRN Reason: Hypoglycemia Heparin Sodium (Beef Lung) () 50 units IV UD PRN PRN Reason: R Port Heparin Flush Hydralazine HCl (Apresoline Iv) 10 mg IV Q4H PRN PRN PRN Reason: SBP > 160 Sodium Chloride () 250 mls @ 15 mls/hr IV .[id number] PRN PRN Reason: Saline Flush Sodium Chloride () 250 mls @ 15 mls/hr IV .[id number] PRN PRN Reason: Additional IVPB Infusion Enteral Nutritional Formula (Jevity 1.5) 1,000 mls @ 50 mls/hr GT .Q20H [facility] Last Admin: 07/08/19 22:38 Dose: 50 mls/hr Documented by: Lactobacillus Acidophilus (Acidophilus) 1 tablet GT DAILY [facility] Lansoprazole (Lansoprazole) 15 mg GT BID [facility] Last Admin: 07/08/19 22:38 Dose: 15 mg Documented by: Loratadine (Claritin) 10 mg GT DAILY [facility] Lorazepam (Ativan) 1 mg GT Q8H PRN PRN PRN Reason: AGITATION Last Admin: 07/09/19 03:10 Dose: 1 mg Documented by: Metoclopramide HCl (Reglan) 10 mg GT TID [facility] Last Admin: 07/09/19 05:55 Dose: 10 mg Documented by: Ondansetron HCl (Zofran) 4 mg IV Q8H PRN PRN PRN Reason: NAUSEA/VOMITING Last Admin: 07/09/19 06:21 Dose: 4 mg Documented by: Phenobarbital (Phenobarbital) 60 mg GT BID [facility] Last Admin: 07/08/19 22:35 Dose: 60 mg Documented by: Polyethylene Glycol (Miralax) 17 gm GT TID [facility] Last Admin: 07/09/19 05:55 Dose: 17 gm Documented by: Prochlorperazine Edisylate (Compazine Iv) 10 mg IV Q4H PRN PRN PRN Reason: nausea, emesis Last Admin: 07/09/19 06:59 Dose: 10 mg Documented by: Simethicone (Mylicon) 40 mg GT TID [facility] Last Admin: 07/09/19 05:55 Dose: 40 mg Documented by: Sodium Chloride (0.9% Nacl (Sterile) Posiflush) 10 - 40 ml IV UD PRN PRN Reason: Port access or dressing change Sodium Chloride () 10 - 40 ml IV UD PRN PRN Reason: R [place] Flush Clinical Impression(s) from Imaging Studies Chest X-Ray 07/08/19 10:48 IMPRESSION: No acute pulmonary pathology of the chest. Electronically Signed: Ruddy Longo DO at 12:38 EDT Tel [phone], Service support , Assessment/Plan Active and Suspected Problems (Last Reviewed 03/24/19 @ 11:39 by Bella Angela) Bradycardia (Acute) RECOMMENDATIONS: 1. Resume baseline medication and bowel regimen 2. Continue mechanical ventilation at baseline settings, okay to transition to home vent 3. Continue empiric antibiotics for 48 hours until culture negative. Obtain sputum culture 4. Resume tube feeds IMPRESSIONS: 1. Bradycardia/hypotension Unclear etiology at this time. Patient may have had a response to the Ativan given in the ER. Blood pressures have been stable to this point. Would resume with baseline medications and monitor clinically. Reasonable to continue antibiotics until culture negative at 48 hours given compromise status. No indication for pressor therapy at this time. Would hold on extensive work-up at this time as patient appears to have normalized with clinical monitoring. 2. Chronic respiratory failure Patient does not appear to have any infiltrates on chest x-ray. No leukocytosis, fever or change in secretions have been reported. Okay to continue with baseline ventilator settings. Okay to transition to home vent from my perspective. Low clinical suspicion for infectious etiology, but given comorbidities it is reasonable to treat for now. 3. Baseline spastic quadriplegia/cerebral palsy/seizure disorder/pancytopenia/iron deficiency anemia Complicates care, management, recovery and prognosis. Okay to continue home medications from my perspective. Blood counts are doing okay at this time, so there is no indication for transfusions. Continue bowel regimen as patient has had issues with tolerating tube feeds in the past with changes. Inpatient E&M: [id number] Init Hosp L3
--- NOTE | 2019-07-09 08:58 | PN_ITS ---
Patient Problems: Active and Suspected Problems (Last Updated 07/09/19 @ 11:[address] Gumaro Kohli MD) Bradycardia (Acute) Subjective: Chief complaint: Follow-up after admission for hypotension and bradycardia. Patient seen and examined. No acute events overnight. Patient is alert, not following commands. His blood pressure has been stable since admission. It was only low in the emergency department. Maximum temperature overnight was 97.3 Fahrenheit. Heart rate stabilized, on mechanical ventilation. - Physical Exam Vitals/I&O's: Vital Signs Temp Pulse Resp BP Pulse Ox 97.5 F L 86 22 H 142/108 H 95 07/09/19 00:00 07/09/19 06:56 07/09/19 06:56 07/09/19 06:00 07/09/19 06:56 Oxygen Delivery Method Mechanical Ventilator Weight: 171 lb 4.787 oz Body Mass Index (BMI) 32.9 Finger Stick Blood Glucose 132 Intake and Output for Last 24 Hours 07/07/19 07/08/19 07/09/19 23:59 23:59 23:59 Intake Total 1000 / 1000 2467.08 / 2467.08 Output Total 180 / 180 Balance 1000 / 1000 2287.08 / 2287.08 General: Alert, Cooperative, - - Not following commands, demented and developmental disabilities. HEENT: Atraumatic, PERRLA, EOMI, Normocephalic Oral: Moist Mucosa, No Gingival or Mucosal Lesions/ Ulcerations Neck: Supple, No JVD, Negative Carotid Bruits, Trachea Midline, Thyroid Normal Size and Texture Lungs: Clear to auscultation, No rhonchi, No wheeze, No rales, Diminished, - - Decreased breath sounds bilateral, otherwise clear. Cardiovascular: Regular rate, Regular Rhythm, Normal S1, Normal S2, PMI Normal Abdomen: Bowel Sounds Present, Soft, Non Tender, Non-Distended, No Hepato- splenomegaly Extremities: No clubbing, No cyanosis, Edema Skin: No rashes, No breakdown Musculoskeletal: - - Upper and lower extremity contractures. Neurological: - - Quadriplegia, underdeveloped both upper and lower extremities with contractures, not following commands. Psych/Mental Status: - - Unable to assess. Microbiology Past 72 Hours 07/08/19 11:15 Mucosa - Other Coronavirus COVID-19 PCR - Final Laboratory Results 07/08/19 11:15: COVID-19 (YAYO) Cancelled 07/08/19 12:10: Urine Color Yellow, Urine Clarity Clear, Urine pH 8.0, Ur Specific [place] 1.015, Urine Protein Negative, Urine Glucose (UA) Normal, Urine Ketones Negative, Urine Occult Blood Negative, Urine Nitrite Negative, Urine Bilirubin Negative, Urine Urobilinogen Normal, Ur Leukocyte Esterase Negative, Urine RBC 0 SEEN, Urine WBC 0-5 SEEN, Ur Squamous Epith Cells 0 SEEN, Urine Shawn teria 0 SEEN, Urine Mucus 0 SEEN 07/08/19 15:49: WBC 5.5, RBC 3.62 L, Hgb 10.3 L, Hct 32.0 L, MCV 88.4, MCH 28.5, MCHC 32.2, RDW Std Deviation 45.0 H, RDW Coeff of Emilee 13.8, Plt Count 71 L, MPV 11.2, Immature Gran % (Auto) 0.200, Neut % (Auto) 55.7, Lymph % (Auto) 31.6, [place] % (Auto) 9.6, Eos % (Auto) 2.7, Baso % (Auto) 0.2, Absolute Neuts (auto) 3.1, Absolute Lymphs (auto) 1.74, Nucleated RBC % 0, Differential Comment SCANNED 07/08/19 15:49: PT 14.0, INR 1.1, APTT 48.8 H 07/08/19 15:49: Sodium 136, Potassium 4.1, Chloride 104, Carbon Dioxide 28.0, Anion Gap 4 L, BUN 20 H, Creatinine 0.36 L, Estim Creat Clear Calc 198.69, Est GFR (MDRD) Af Amer 354, Est GFR (MDRD) Non-Af 293, BUN/Creatinine Ratio 56.0 H, Glucose 94, Calcium 8.8, Total Bilirubin 0.20, AST 22, ALT 37, Alkaline Phosphatase 195 H, Total Protein 8.2, Albumin 3.1 L, Globulin 5.1 H, Albumin/Globulin Ratio 0.6 L 07/08/19 15:49: Triglycerides 192, Cholesterol 183, LDL Cholesterol 97, VLDL Cholesterol 38, HDL Cholesterol 48 07/08/19 15:49: Iron 36 L, TIBC 361, Iron Saturation 10.0 L, Ferritin 54 07/08/19 17:00: Lactic Acid 0.8 07/08/19 17:00: Phenobarbital 22.2 07/08/19 17:00: Magnesium 2.0, TSH 1.10, Free T4 1.08 07/09/19 04:40: WBC 4.2 L, RBC 3.40 L, Hgb 9.7 L, Hct 30.8 L, MCV 90.6, MCH 28.5, MCHC 31.5 L, RDW Std Deviation 46.7 H, RDW Coeff of Emilee 14.1, Plt Count 75 L, MPV 11.4, Immature Gran % (Auto) 0.200, Neut % (Auto) 55.7, Lymph % (Auto) 32.1, [place] % (Auto) 8.7, Eos % (Auto) 3.1, Baso % (Auto) 0.2, Absolute Neuts (auto) 2.4, Absolute Lymphs (auto) 1.36, Nucleated RBC % 0, Platelet Estimate MOD 07/09/19 04:40: Sodium 141, Potassium 3.8, Chloride 108 H, Carbon Dioxide 28.0, Anion Gap 5, BUN 13, Creatinine 0.29 L, Estim Creat Clear Calc 383.29, Est GFR (MDRD) Af Amer 443, Est GFR (MDRD) Non-Af 366, BUN/Creatinine Ratio 44.2 H, Glucose 77, Calcium 8.2 L, Total Bilirubin 0.10 L, AST 23, ALT 35, Alkaline Phosphatase 182 H, Total Protein 7.8, Albumin 2.9 L, Globulin 4.9 H, Albumin/Globulin Ratio 0.6 L Current Medications Acetaminophen (Tylenol Liquid) 650 mg GT Q4H PRN PRN PRN Reason: fever, pain 1-12/01 Albuterol Sulfate (Ventolin Aerosols) 2.5 mg INHALATION Q2H PRN PRN PRN Reason: SOB/Wheezing Last Admin: 07/09/19 02:36 Dose: 2.5 mg Documented by: Ascorbic Acid (Vitamin C) 500 mg PO DAILY [facility] Baclofen (Lioresal) 20 mg GT 4X/DAY [facility] Last Admin: 07/08/19 22:38 Dose: 20 mg Documented by: Dextrose (D50w Syringe) 0 gm IV X1 PRN; Protocol PRN Reason: Hypoglycemia Doxazosin Mesylate (Cardura) 2 mg GT DAILY [facility] Enoxaparin Sodium (Lovenox) 70 mg SC Q12@0600,1800 [facility] Last Admin: 07/09/19 05:54 Dose: 70 mg Documented by: Ferrous Sulfate (Ferrous Sulfate Syrup) 300 mg GT DAILY [facility] Gabapentin (Neurontin) 500 mg GT 4X/DAY [facility] Last Admin: 07/08/19 22:37 Dose: 500 mg Documented by: Glucagon () 1 mg IM .X1 PRN PRN Reason: Hypoglycemia Heparin Sodium (Beef Lung) () 50 units IV UD PRN PRN Reason: R Port Heparin Flush Hydralazine HCl (Apresoline Iv) 10 mg IV Q4H PRN PRN PRN Reason: SBP > 160 Sodium Chloride () 250 mls @ 15 mls/hr IV .[id number] PRN PRN Reason: Saline Flush Sodium Chloride () 250 mls @ 15 mls/hr IV .[id number] PRN PRN Reason: Additional IVPB Infusion Enteral Nutritional Formula (Jevity 1.5) 1,000 mls @ 50 mls/hr GT .Q20H [facility] Last Admin: 07/08/19 22:38 Dose: 50 mls/hr Documented by: Lactobacillus Acidophilus (Acidophilus) 1 tablet GT DAILY [facility] Lansoprazole (Lansoprazole) 15 mg GT BID [facility] Last Admin: 07/08/19 22:38 Dose: 15 mg Documented by: Loratadine (Claritin) 10 mg GT DAILY [facility] Lorazepam (Ativan) 1 mg GT Q8H PRN PRN PRN Reason: AGITATION Last Admin: 07/09/19 03:10 Dose: 1 mg Documented by: Metoclopramide HCl (Reglan) 10 mg GT TID [facility] Last Admin: 07/09/19 05:55 Dose: 10 mg Documented by: Ondansetron HCl (Zofran) 4 mg IV Q8H PRN PRN PRN Reason: NAUSEA/VOMITING Last Admin: 07/09/19 06:21 Dose: 4 mg Documented by: Phenobarbital (Phenobarbital) 60 mg GT BID [facility] Last Admin: 07/08/19 22:35 Dose: 60 mg Documented by: Polyethylene Glycol (Miralax) 17 gm GT TID [facility] Last Admin: 07/09/19 05:55 Dose: 17 gm Documented by: Prochlorperazine Edisylate (Compazine Iv) 10 mg IV Q4H PRN PRN PRN Reason: nausea, emesis Last Admin: 07/09/19 06:59 Dose: 10 mg Documented by: Simethicone (Mylicon) 40 mg GT TID JOYCE Last Admin: 07/09/19 05:55 Dose: 40 mg Documented by: Sodium Chloride (0.9% Nacl (Sterile) Posiflush) 10 - 40 ml IV UD PRN PRN Reason: Port access or dressing change Sodium Chloride () 10 - 40 ml IV UD PRN PRN Reason: R [place] Flush Medical Necessity - Tobacco Use Smoking Status: Never smoker Tobacco Use: Non-smoker Assessment/Plan All Active Problems (Last Updated 07/09/19 @ 11:[address] Gumaro Kohli MD) Bradycardia (Acute) This is a 39 years old male patient presented to the emergency room because of reported fever and agitation, developed transient hypotension and bradycardia in the ER, was started on empiric IV antibiotics and admitted to intensive care unit. #1 hypotension/bradycardia: This was only transient down the ED. After admission, blood pressure and heart rate remained stable. Reportedly, patient received Ativan in the ER. Maximum temperature since admission is 99.3 Fahrenheit, maximum overnight was 97.3. Chest x-ray showed no acute infiltrate or consolidation. Urinalysis revealed no evidence of acute cystitis. Patient has no leukocytosis, routine blood work was remarkable for chronic anemia, otherwise normal. COVID-19 testing performed yesterday and was negative. Blood and urine cultures are pending. He is not on any antibiotics. Continuous Dryout Operator Helper on the case. Plan to continue same treatment. #2 chronic respiratory failure: Currently, on mechanical ventilation through tracheostomy. Pulse ox has been around 95% with FiO2 of 35%. Chest x-ray without acute infiltrate. Plan to continue baseline ventilator settings and critical care agreed to change to home vent. #3 recent history of pulmonary embolism: He is on therapeutic Lovenox twice daily. #4 Thrombocytopenia: It is chronic, platelet count has been fluctuating significantly, lowest was 54,000 on December,. Today's platelet count was 75,000, stable at baseline. No evidence of active bleeding. Plan to monitor. #5 cerebral palsy/spastic quadriplegia: He has a colostomy bag and implanted abdominal baclofen pump. Plan for supportive treatment. #6 chronic anemia: At this normocytic anemia, baseline mammograms been around 8- 11 g/dL. Today's hemoglobin is 9.7 g/dL, stable at baseline. #7 quadriplegia: Secondary to cerebral palsy, plan for PT OT evaluation and treatment. #8 seizure disorder: Stable, continue phenobarbital. #9 DVT prophylaxis: Subcu Lovenox twice daily. This note was generated with [employer] dictation software. It may contain incorrect words, spelling, and punctuation that were not noted in checking the note before signing. Inpatient E&M: 27711 Subs Hosp L2
[2019-07-09] MEDS: Baclofen 10 MG Tablet 20 MG GT ×4 (09:41→22:57)
[2019-07-09] MEDS: Phenobarbital 20 MG/5 ML UDC 60 MG GT ×2 (09:41→23:01)
[2019-07-09] MEDS: Gabapentin 100 MG Capsule 500 MG GT ×4 (09:42→22:57)
[2019-07-09] MEDS: Ferrous Sulfate 300 MG/5 ML UDC GT (09:42)
[2019-07-09] MEDS: Lansoprazole 15 MG Capsule.DR GT ×2 (09:42→22:57)
[2019-07-09] MEDS: Loratadine 10 MG Tablet GT (09:43)
[2019-07-09] MEDS: Ascorbic Acid 500 MG Tablet PO (09:44)
[2019-07-09] MEDS: Doxazosin 1 MG Tablet 2 MG GT (09:44)
[2019-07-09] MEDS: Haloperidol Lactate 5 MG/ML Vial 3 MG IV (10:33)
[2019-07-09] MEDS: Jevity 1.5 1,000 ML 50 ML GT (22:58)
[2019-07-10] VITALS (32 sets, daily range): BP systolic 98–172; BP diastolic 66–145; PULSE 86–135; RESP 12–36; TEMP 37–37.7; O2SAT 93–97
[2019-07-10] MEDS: Acetaminophen 650 MG/20 ML UDC GT (00:32)
[2019-07-10] MEDS: LORazepam 1 MG Tablet GT ×2 (00:32→16:28)
[2019-07-10] MEDS: Enoxaparin 80 MG/0.8 ML Syringe 70 MG SC ×2 (05:21→18:58)
[2019-07-10] MEDS: Gabapentin 100 MG Capsule 500 MG GT ×3 (05:21→18:58)
[2019-07-10] MEDS: Metoclopramide 10 MG Tablet GT ×3 (05:21→22:29)
[2019-07-10] MEDS: Simethicone 40MG/0.6ML Bottle 40 MG GT ×3 (05:21→22:28)
[2019-07-10] MEDS: Polyethylene Glycol 3350 17 GM PACKET GT ×3 (05:21→22:27)
[2019-07-10] MEDS: Baclofen 10 MG Tablet 20 MG GT ×3 (05:21→18:57)
--- NOTE | 2019-07-10 08:17 | PN_ITS ---
Subjective: The patient was seen and examined at the bedside this morning. Events from the last 24 hours have been reviewed. The patient is currently afebrile, hemodynamically stable and maintaining appropriate oxygen saturations on his home ventilator settings. Objective: The patient's most recent lab work, culture data and imaging studies have all been personally reviewed. Coronavirus PCR was negative. Urine culture has shown no growth to date. Blood cultures have been unrevealing. Tracheal aspirate is currently pending. General: Alert, No apparent distress HEENT: Atraumatic, Normocephalic Oral: Moist Mucosa Neck: Supple, No Nodes, Trachea Midline, - - Stable tracheostomy site Lungs: No rhonchi, No wheeze, No rales, Diminished Cardiovascular: Regular rate, Regular Rhythm, Normal S1, Normal S2 Abdomen: Bowel Sounds Present, Soft, Non Tender Extremities: No clubbing, No cyanosis, - - Contracted extremities Skin: No breakdown Musculoskeletal: No Muscle Wasting Neurological: - - Baseline neurological status with spastic quadriplegia. Pat ient is nonverbal at baseline. Psych/Mental Status: Flat Affect Vital Signs Temp Pulse Resp BP Pulse Ox 98.6 F 108 H 19 H 131/73 H 95 07/10/19 05:00 07/10/19 08:00 07/10/19 08:00 07/10/19 08:00 07/10/19 08:00 Oxygen Delivery Method Mechanical Ventilator Weight: 167 lb 15.876 oz Body Mass Index (BMI) 32.9 Finger Stick Blood Glucose 132 Intake and Output for Last 24 Hours 07/08/19 07/09/19 07/10/19 23:59 23:59 23:59 Intake Total 1000 / 1000 4177.08 / 4177.08 613 / 613 Output Total 2980 / 2980 800 / 800 Balance 1000 / 1000 1197.08 / 1197.08 -187 / -187 Labs (Last 48 Hours) 07/08/19 07/08/19 07/08/19 11:15 12:10 15:49 WBC 5.5 RBC 3.62 L Hgb 10.3 L Hct 32.0 L MCV 88.4 MCH 28.5 MCHC 32.2 RDW Std Deviation 45.0 H RDW Coeff of Emilee 13.8 Plt Count 71 L MPV 11.2 Immature Gran % (Auto) 0.200 Neut % (Auto) 55.7 Lymph % (Auto) 31.6 [place] % (Auto) 9.6 Eos % (Auto) 2.7 Baso % (Auto) 0.2 Absolute Neuts (auto) 3.1 Absolute Lymphs (auto) 1.74 Nucleated RBC % 0 Differential Comment SCANNED Platelet Estimate PT INR APTT Sodium Potassium Chloride Carbon Dioxide Anion Gap BUN Creatinine Estim Creat Clear Calc Est GFR (MDRD) Af Amer Est GFR (MDRD) Non-Af BUN/Creatinine Ratio Glucose Lactic Acid Calcium Magnesium Iron TIBC Iron Saturation Ferritin Total Bilirubin AST ALT Alkaline Phosphatase Total Protein Albumin Globulin Albumin/Globulin Ratio Triglycerides Cholesterol LDL Cholesterol VLDL Cholesterol HDL Cholesterol TSH Free T4 Urine Color Yellow Urine Clarity Clear Urine pH 8.0 Ur Specific [place] 1.015 Urine Protein Negative Urine Glucose (UA) Normal Urine Ketones Negative Urine Occult Blood Negative Urine Nitrite Negative Urine Bilirubin Negative Urine Urobilinogen Normal Ur Leukocyte Esterase Negative Urine RBC 0 SEEN Urine WBC 0-5 SEEN Ur Squamous Epith Cells 0 SEEN Urine Bacteria 0 SEEN Urine Mucus 0 SEEN Phenobarbital COVID-19 (YAYO) Cancelled 07/08/19 07/08/19 07/08/19 15:49 15:49 15:49 WBC RBC Hgb Hct MCV MCH MCHC RDW Std Deviation RDW Coeff of Emilee Plt Count MPV Immature Gran % (Auto) Neut % (Auto) Lymph % (Auto) [place] % (Auto) Eos % (Auto) Baso % (Auto) Absolute Neuts (auto) Absolute Lymphs (auto) Nucleated RBC % Differential Comment Platelet Estimate PT 14.0 INR 1.1 APTT 48.8 H Sodium 136 Potassium 4.1 Chloride 104 Carbon Dioxide 28.0 Anion Gap 4 L BUN 20 H Creatinine 0.36 L Estim Creat Clear Calc 198.69 Est GFR (MDRD) Af Amer 354 Est GFR (MDRD) Non-Af 293 BUN/Creatinine Ratio 56.0 H Glucose 94 Lactic Acid Calcium 8.8 Magnesium Iron TIBC Iron Saturation Ferritin Total Bilirubin 0.20 AST 22 ALT 37 Alkaline Phosphatase 195 H Total Protein 8.2 Albumin 3.1 L Globulin 5.1 H Albumin/Globulin Ratio 0.6 L Triglycerides 192 Cholesterol 183 LDL Cholesterol 97 VLDL Cholesterol 38 HDL Cholesterol 48 TSH Free T4 Urine Color Urine Clarity Urine pH Ur Specific [place] Urine Protein Urine Glucose (UA) Urine Ketones Urine Occult Blood Urine Nitrite Urine Bilirubin Urine Urobilinogen Ur Leukocyte Esterase Urine RBC Urine WBC Ur Squamous Epith Cells Urine Bacteria Urine Mucus Phenobarbital COVID-19 (YAYO) 07/08/19 07/08/19 07/08/19 15:49 17:00 17:00 WBC RBC Hgb Hct MCV MCH MCHC RDW Std Deviation RDW Coeff of Emilee Plt Count MPV Immature Gran % (Auto) Neut % (Auto) Lymph % (Auto) [place] % (Auto) Eos % (Auto) Baso % (Auto) Absolute Neuts (auto) Absolute Lymphs (auto) Nucleated RBC % Differential Comment Platelet Estimate PT INR APTT Sodium Potassium Chloride Carbon Dioxide Anion Gap BUN Creatinine Estim Creat Clear Calc Est GFR (MDRD) Af Amer Est GFR (MDRD) Non-Af BUN/Creatinine Ratio Glucose Lactic Acid 0.8 Calcium Magnesium Iron 36 L TIBC 361 Iron Saturation 10.0 L Ferritin 54 Total Bilirubin AST ALT Alkaline Phosphatase Total Protein Albumin Globulin Albumin/Globulin Ratio Triglycerides Cholesterol LDL Cholesterol VLDL Cholesterol HDL Cholesterol TSH Free T4 Urine Color Urine Clarity Urine pH Ur Specific [place] Urine Protein Urine Glucose (UA) Urine Ketones Urine Occult Blood Urine Nitrite Urine Bilirubin Urine Urobilinogen Ur Leukocyte Esterase Urine RBC Urine WBC Ur Squamous Epith Cells Urine Bacteria Urine Mucus Phenobarbital 22.2 COVID-19 (YAYO) 07/08/19 07/09/19 07/09/19 17:00 04:40 04:40 WBC 4.2 L RBC 3.40 L Hgb 9.7 L Hct 30.8 L MCV 90.6 MCH 28.5 MCHC 31.5 L RDW Std Deviation 46.7 H RDW Coeff of [place]ilee 14.1 Plt Count 75 L MPV 11.4 Immature Gran % (Auto) 0.200 Neut % (Auto) 55.7 Lymph % (Auto) 32.1 [place] % (Auto) 8.7 Eos % (Auto) 3.1 Baso % (Auto) 0.2 Absolute Neuts (auto) 2.4 Absolute Lymphs (auto) 1.36 Nucleated RBC % 0 Differential Comment Platelet Estimate MOD DEC PT INR APTT Sodium 141 Potassium 3.8 Chloride 108 H Carbon Dioxide 28.0 Anion Gap 5 BUN 13 Creatinine 0.29 L Estim Creat Clear Calc 383.29 Est GFR (MDRD) Af Amer 443 Est GFR (MDRD) Non-Af 366 BUN/Creatinine Ratio 44.2 H Glucose 77 Lactic Acid Calcium 8.2 L Magnesium 2.0 Iron TIBC Iron Saturation Ferritin Total Bilirubin 0.10 L AST 23 ALT 35 Alkaline Phosphatase 182 H Total Protein 7.8 Albumin 2.9 L Globulin 4.9 H Albumin/Globulin Ratio 0.6 L Triglycerides Cholesterol LDL Cholesterol VLDL Cholesterol HDL Cholesterol TSH 1.10 Free T4 1.08 Urine Color Urine Clarity Urine pH Ur Specific [place] Urine Protein Urine Glucose (UA) Urine Ketones Urine Occult Blood Urine Nitrite Urine Bilirubin Urine Urobilinogen Ur Leukocyte Esterase Urine RBC Urine WBC Ur Squamous Epith Cells Urine Bacteria Urine Mucus Phenobarbital COVID-19 (YAYO) Microbiology 07/08/19 12:10 Urine Catheter - Catheter Urine Culture - Preliminary Culture exhibits no growth. 07/09/19 06:30 Sputum, Tracheal Aspirate Gram Stain - Final 07/08/19 11:15 Mucosa - Other Coronavirus COVID-19 PCR - Final Clinical Impression(s) from Imaging Studies Chest X-Ray 07/08/19 10:48 IMPRESSION: No acute pulmonary pathology of the chest. Electronically Signed: Ruddy Longo DO at 12:38 EDT Tel [phone], Service support , Chest X-Ray 07/09/19 04:05 IMPRESSION: Right basilar atelectasis. Electronically Signed: Ruddy Longo DO at 17:37 EDT Tel [phone], Service support , KUB X-Ray 07/09/19 04:15 IMPRESSION: Probable mild ileus. No sign of bowel obstruction. Electronically Signed: Ruddy Longo DO at 17:41 EDT Tel [phone], Service support , Medical Necessity - Tobacco Use Smoking Status: Never smoker Tobacco Use: Non-smoker Assessment/Plan All Active Problems (Last Updated 07/09/19 @ 11:[address] Gumaro Kohli MD) Bradycardia (Acute) RECOMMENDATIONS: 1. Continue home ventilator support. 2. Continue empiric antimicrobials, pending finalized infectious work-up. 3. Continue tube feeds per home regimen. 4. Continue therapeutic Lovenox. IMPRESSIONS: 1. Bradycardia/hypotension Unclear etiology at this time. Patient may have had a response to the Ativan given in the ER. Blood pressures have been stable to this point. Would resume with baseline medications and monitor clinically. Reasonable to continue antibiotics, pending culture results. No indication for pressor therapy at this time. 2. Chronic respiratory failure Patient does not appear to have any infiltrates on chest x-ray. No leukocytosis, fever or change in secretions have been reported. Okay to continue with baseline ventilator settings. Low clinical suspicion for infectious etiology, but given comorbidities it is reasonable to treat for now. 3. Baseline spastic quadriplegia/cerebral palsy/seizure disorder/pancytopenia/iron deficiency anemia Complicates care, management, recovery and prognosis. Okay to continue home medications from my perspective. This note was generated with [employer] dictation software. It may contain incorrect words, spelling, and punctuation that were not noted in checking the note before signing. Inpatient E&M: 38325 [facility] Hosp L3
[2019-07-10] MEDS: Ferrous Sulfate 300 MG/5 ML UDC GT (08:49)
--- NOTE | 2019-07-10 08:49 | NURSING ---
Was called by nursing to change ostomy appliance d/t leaking. appliance had been changed last PM, but the cutting surface on the appliance as not large enough so appliance started leaking. patient also tends to move the left arm up against the appliance, so patient may be pulling appliance as well. there was a moderate amount of unformed brown stool noted in the appliance. abdomen is rounded. had discussed with patient's mother last admission as well. patient has continually gained weight and abdomen is quite large. there is a slight peristomal hernia as well. both are most likely contributing to more frequent appliance changes. the peristomal skin is intact at this time. cleansed with warm water. pat dry. applied a new 2 piece [place] appliance with a small amount of stoma paste. pt tolerated well. will monitor. an extra appliance is in room at this time. as well.
[2019-07-10] MEDS: Loratadine 10 MG Tablet GT (08:50)
[2019-07-10] MEDS: Doxazosin 1 MG Tablet 2 MG GT (08:50)
[2019-07-10] MEDS: Lansoprazole 15 MG Capsule.DR GT ×2 (08:50→22:27)
[2019-07-10] MEDS: Ascorbic Acid 500 MG Tablet PO (08:51)
[2019-07-10] MEDS: Phenobarbital 20 MG/5 ML UDC 60 MG GT ×2 (09:50→22:49)
--- NOTE | 2019-07-10 10:04 | CASEMGMT ---
RN CM Note: participated in ICU rounds. Possible dc today if cleared by physician. SW referral placed for assessment and dc planning to resume services pt has @ home. Nathen, updated via VM on above. Pt has home vent, parents are guardians and care takers for pt. Ishan LEVINN RN ACM
--- NOTE | 2019-07-10 10:40 | CASEMGMT ---
Patient is a re-admit. He was here 06-04-2019 to 06-14-2019. SW called patient's mom, Matteo. She said things are going fine at home. [facility]. Patient's mom said she would like PT/OT added to the services. She said an PROJECT MANAGEMENT PROFESSOR visits 7 days a week, an RN one time a month, and an aide 4-5 nights a week (overnight). He was approved for 14/09 care through [employer]. She would like transportation via squad to be arranged for patient at d/c. They have a ramp entrance into their home and she has no preference for transportation company. Patient's special education case manager with [employer] is [employer]. Patient has the following DME: wheelchair, home has ceiling tract, estefany lift, elevator to lower level, cough assist device, feeding pump, hospital bed, ramp access into their home, oxygen concentrator and ventilator through [facility]. LAYA called [employer] and left her a voice mail letting her know patient was in the hospital and that SW will fax d/c instructions at d/c. LAYA also called [facility] with [facility] and verified patient has nursing through them. SW also told her patient's mom would like to add PT/OT. She said this is fine and she gave SW a different fax number to send orders and d/c instructions. [employer] X [phone] and fax: [phone] [facility] with [facility] and current fax: [phone] Plan: Home with parents and resumption of nursing through [facility] as well as PT/OT. Family would like squad transportation arranged at d/c. Shanthi LYMAN CLINICAL LAB ASSISTANT
--- NOTE | 2019-07-10 10:46 | PCM.PN.HOSP ---
Patient Problems: Active and Suspected Problems (Last Updated 07/09/19 @ 11:[address] Gumaro Kohli MD) Bradycardia (Acute) Subjective: Patient seen and examined. Was calm and alert. Nurse however was subsequently told me that patient had projectile emesis. He had tube feeding going at 50 cc/h and she did not think there were any residuals. Heart rate is little bit up at 104 today and respiratory rate is 20 but he is otherwise hemodynamically stable. Vitals/I&O's: Vital Signs Temp Pulse Resp BP Pulse Ox 98.8 F 104 H 20 H 135/81 H 96 07/10/19 09:00 07/10/19 09:00 07/10/19 09:00 07/10/19 09:00 07/10/19 09:00 Oxygen Delivery Method Mechanical Ventilator Weight: 167 lb 15.876 oz Body Mass Index (BMI) 32.9 Finger Stick Blood Glucose 132 Intake and Output for Last 24 Hours 07/08/19 07/09/19 07/10/19 23:59 23:59 23:59 Intake Total 1000 / 1000 4177.08 / 4177.08 613 / 613 Output Total 2980 / 2980 800 / 800 Balance 1000 / 1000 1197.08 / 1197.08 -187 / -187 General: Alert, No apparent distress HEENT: Atraumatic, PERRLA, EOMI, Normocephalic Oral: Dry Mucosa, - - macroglossia Neck: Supple, No JVD, Negative Carotid Bruits Lungs: - - diminished breath sounds bibasally, no wheezes or crackles Cardiovascular: Normal S1, Normal S2 Abdomen: Bowel Sounds Present, Soft, Non Tender, Non-Distended, No Hepato-splenomegaly, - - colostomy bag in place Extremities: No clubbing, No cyanosis, No edema, Capillary Refill Less than 3 Seconds Skin: No rashes, No breakdown Musculoskeletal: No Tenderness to Palpation of Joints or Extremities, - - contractures of LEs Lymphatic: No Cervical, Supraclavicular, or Inguinal Adenopathy Neurological: Cranial nerves II-XII grossly intact Psych/Mental Status: Flat Affect Microbiology Past 72 Hours 07/08/19 12:10 Urine Catheter - Catheter Urine Culture - Preliminary Culture exhibits no growth. 07/09/19 06:30 Sputum, Tracheal Aspirate Gram Stain - Final 07/08/19 11:15 Mucosa - Other Coronavirus COVID-19 PCR - Final Diagnostic Data Chest X-Ray 07/09/19 04:05 IMPRESSION: Right basilar atelectasis. Electronically Signed: Ruddy DO Donta at 17:37 EDT Tel [phone], Service support , KUB X-Ray 07/09/19 04:15 IMPRESSION: Probable mild ileus. No sign of bowel obstruction. Electronically Signed: Ruddy DO Donta at 17:41 EDT Tel [phone], Service support , Current Medications Acetaminophen (Tylenol Liquid) 650 mg GT Q4H PRN PRN PRN Reason: fever, pain 1-12/01 Last Admin: 07/10/19 00:32 Dose: 650 mg Documented by: Albuterol Sulfate (Ventolin Aerosols) 2.5 mg INHALATION Q2H PRN PRN PRN Reason: SOB/Wheezing Last Admin: 07/09/19 02:36 Dose: 2.5 mg Documented by: Ascorbic Acid (Vitamin C) 500 mg PO DAILY [facility] Last Admin: 07/10/19 08:51 Dose: 500 mg Documented by: Baclofen (Lioresal) 20 mg GT Q6H [facility] Last Admin: 07/10/19 05:21 Dose: 20 mg Documented by: Dextrose (D50w Syringe) 0 gm IV X1 PRN; Protocol PRN Reason: Hypoglycemia Doxazosin Mesylate (Cardura) 2 mg GT DAILY [facility] Last Admin: 07/10/19 08:50 Dose: 2 mg Documented by: Enoxaparin Sodium (Lovenox) 70 mg SC Q12@0600,1800 [facility] Last Admin: 07/10/19 05:21 Dose: 70 mg Documented by: Ferrous Sulfate (Ferrous Sulfate Syrup) 300 mg GT DAILY [facility] Last Admin: 07/10/19 08:49 Dose: 300 mg Documented by: Gabapentin (Neurontin) 500 mg GT Q6H [facility] Last Admin: 07/10/19 05:21 Dose: 500 mg Documented by: Glucagon () 1 mg IM .X1 PRN PRN Reason: Hypoglycemia Heparin Sodium (Beef Lung) () 50 units IV UD PRN PRN Reason: R Port Heparin Flush Hydralazine HCl (Apresoline Iv) 10 mg IV Q4H PRN PRN PRN Reason: SBP > 160 Sodium Chloride () 250 mls @ 15 mls/hr IV .[id number] PRN PRN Reason: Saline Flush Sodium Chloride () 250 mls @ 15 mls/hr IV .[id number] PRN PRN Reason: Additional IVPB Infusion Enteral Nutritional Formula (Jevity 1.5) 1,000 mls @ 50 mls/hr GT .Q20H [facility] Last Admin: 07/09/19 22:58 Dose: 50 mls/hr Documented by: Lactobacillus Acidophilus (Acidophilus) 1 tablet GT DAILY [facility] Last Admin: 07/10/19 08:49 Dose: 1 tablet Documented by: Lansoprazole (Lansoprazole) 15 mg GT BID [facility] Last Admin: 07/10/19 08:50 Dose: 15 mg Documented by: Loratadine (Claritin) 10 mg GT DAILY [facility] Last Admin: 07/10/19 08:50 Dose: 10 mg Documented by: Lorazepam (Ativan) 1 mg GT Q8H PRN PRN PRN Reason: AGITATION Last Admin: 07/10/19 00:32 Dose: 1 mg Documented by: Metoclopramide HCl (Reglan) 10 mg GT TID [facility] Last Admin: 07/10/19 05:21 Dose: 10 mg Documented by: Ondansetron HCl (Zofran) 4 mg IV Q8H PRN PRN PRN Reason: NAUSEA/VOMITING Last Admin: 07/09/19 06:21 Dose: 4 mg Documented by: Phenobarbital (Phenobarbital) 60 mg GT BID [facility] Last Admin: 07/10/19 09:50 Dose: 60 mg Documented by: Polyethylene Glycol (Miralax) 17 gm GT TID [facility] Last Admin: 07/10/19 05:21 Dose: 17 gm Documented by: Prochlorperazine Edisylate (Compazine Iv) 10 mg IV Q4H PRN PRN PRN Reason: nausea, emesis Last Admin: 07/09/19 06:59 Dose: 10 mg Documented by: Simethicone (Mylicon) 40 mg GT TID [facility] Last Admin: 07/10/19 05:21 Dose: 40 mg Documented by: Sodium Chloride (0.9% Nacl (Sterile) Posiflush) 10 - 40 ml IV UD PRN PRN Reason: Port access or dressing change Sodium Chloride () 10 - 40 ml IV UD PRN PRN Reason: R Port [place] Flush STROKE Vital Signs/Narrative: Vital Signs Temp Pulse Resp BP Pulse Ox 07/10/19 09:00 98.8 F 104 H 20 H 135/81 H 96 07/10/19 08:00 108 H 19 H 131/73 H 95 07/10/19 07:57 106 H 07/10/19 07:00 102 H 19 H 135/102 H 95 Medical Necessity - Tobacco Use Smoking Status: Never smoker Tobacco Use: Non-smoker Assessment/Plan All Active Problems (Last Updated 07/09/19 @ 11:[address] Gumaro Kohli MD) Bradycardia (Acute) 1. Hypotension and bradycardia Resolved. Heart rate and blood pressure have been stable since admission and heart rate this morning is around 104. COVID screen was negative. 2. Chronic respiratory failure: On chronic vent through his tracheostomy. Critical care on board. On baseline vent settings. 3. History of PE: Was recently diagnosed with PE. Oral anticoagulation was stopped on admission due to concerns about it being incompatible with his antiseizure medication. Currently on Lovenox twice daily. 4. Thrombocytopenia Platelets were 75. on lovenox therapeutic dose as treatment for PE. Will trend troponin levels. The thrombocytopenia is chronic. 5. Cerebral palsy with spastic quadriplegia: Has abdominal baclofen pump. Colostomy bag in place. Stable. 6. Chronic anemia: Stable. 7. Seizure disorder: On phenobarbital. Nutrition: Currently on tube feeding. Was on 50 cc/h this morning. Patient had projectile emesis this morning. Of note, during his last admission, patient had a challenge with increased residuals and amount of tube feeding per hour had to be titrated up slowly. Will cut down tube feeding to 20 cc/h and titrate upwards for goal of 50 cc/h. IV Zofran as needed Prophylaxis: Currently on therapeutic Lovenox as treatment for PE diagnosed during last admission Inpatient E&M: [id number] [facility] L3
--- NOTE | 2019-07-10 13:18 | CASEMGMT ---
SW called Isa with [facility] and let her know patient is not going to be discharged today. Shanthi LYMAN MSW
[2019-07-10 13:59] LABS: Absolute Lymphocyte Count 1.37 X10^3/uL (0.83-4.51); Absolute Neutrophil Count 2.7 X10^3/uL (2.0-7.7); Eosinophil# 0.09 X10^3/uL; Eosinophils% 1.9 % (0-5); Hematocrit 31.4 % (40-54); Lymphocyte # 1.37 X10^3/ul (4.0); Lymphocyte % 29.1 % (19-41); Mean Corp Hgb Conc 31.8 g/dL (32-36); Mean Corpuscular Hgb 28.2 pg (27.0-32.0); Mean Corpuscular Volume 88.7 fL (80-94); Mean Platelet Vol. 10.6 fl (6.2-12.0); Monocyte# 0.58 X10^3/uL; Monocyte% 12.3 % (0-10); NRBC Flagged by Analyzer 0 % (0-5); Neutrophil # 2.65 X10^3/uL (2.7-7.7); Neutrophil % 56.5 % (47-70); POSITIVE COUNT YES; Platelet Count 91 K/mm3 (150-450); RBC Distribution Width CV 14.3 % (11.6-14.6); RBC Distribution Width SD 46.5 fl (35.1-43.9); Red Blood Count 3.54 M/mm3 (4.6-6.2); White Blood Count 4.7 K/mm3 (4.4-11.0)
--- NOTE | 2019-07-10 14:07 | EKG12_ITS ---
Test Reason : TACHY Blood Pressure : / mmHG Vent. Rate : 122 BPM Atrial Rate : 122 BPM P-R Int : 116 ms QRS Dur : 092 ms QT Int : 300 ms P-R-T Axes : 056 -32 132 degrees QTc Int : 427 ms Sinus tachycardia Left axis deviation Low voltage QRS ST & T wave abnormality, consider anterolateral ischemia Abnormal ECG Confirmed by ENRIKE VARGAS, BESS ([id number]), metropolitan editor MICHELLE PERKINS ([id number]) on 07/13/2019 4:11:29 PM Referred By: Tania Randle Confirmed By:BESS CALVERT MD
--- NOTE | 2019-07-10 15:16 | CON.PCM_ITS ---
Reason for Consult Date of Consultation: 07/10/19 Reason for Consultation: Evaluation of heart rate History of Present Illness: The patient is a 39 year old M with a history of chronic anemia, previous hypercarbic respiratory failure on chronic ventilation, cerebral palsy with quadriplegia on a baclofen pump. His other medical issues include a colostomy, chronic indwelling catheter, frequent aspirations, seizure disorder who was recently admitted to the hospital treated for pneumonia sepsis and was noted to be bradycardic. It was felt that this may have been secondary to the sepsis. He presented to the emergency room on 516 with increased agitation and low-grade fever. There has been no change in his secretions or cough no emesis or ostomy change. He was noted to be hypotensive. He was admitted to the intensive care unit and he is currently noted to be tachycardic. As you know he does have previous echocardiogram which have demonstrated preserved ejection fraction. He is currently on no rate limiting medications. Cardiology was called to see him to give an input on his heart rate. [] Past Medical History Allergies/Adverse Reactions: Allergies cisapride monohydrate [From Propulsid] Allergy (Verified 06/04/19 00:05) Rash codeine Adverse Reaction (Verified 06/04/19 00:05) hallucinations metronidazole [From Flagyl] Adverse Reaction (Verified 06/04/19 00:05) Rash morphine Adverse Reaction (Verified 06/04/19 00:05) Hallucinations dust Allergy (Uncoded 06/04/19 00:05) Other Home Medications: Ambulatory Orders Medication Instructions Recorded Simethicone 40MG/0.6ML [Mylicon] 40 mg GT TID 11/09/13 Pantoprazole Sodium [Protonix] 20 ml GT BID 08/09/14 Phenobarbital 60 mg GT BID 02/19/17 Cetirizine HCl [Zyrtec] 10 ml GT DAILY 02/04/18 Lactobacillus Acidophilus 1 cap GT DAILY 02/04/18 [Acidophilus] Gabapentin 500 mg GT Q6H 07/14/18 metoclopramide HCl 5 mg/5 mL oral 10 mg GT TID ml 09/16/18 solution Lorazepam [Ativan] 1 mg GT Q8 PRN 10/08/18 Cholecalciferol (Vitamin D3) 5 ml GT DAILY 12/25/18 [Vitamin D3] Cough Assist 1 dose .ROUTE .MEDSUPPLY 12/25/18 Ferrous Sulfate 5 ml GT DAILY 12/25/18 Furosemide 40 mg GT DAILY PRN 12/25/18 Potassium Chloride 1.5 ml GT DAILY PRN 12/25/18 oxygen concentrator 1 dose .ROUTE .MEDSUPPLY 12/25/18 Ascorbic Acid [Vitamin C] 500 mg PO DAILY #150 mls 12/27/18 doxazosin 2 mg tablet 2 mg PO DAILY tab 03/24/19 Baclofen [Ozobax] 20 mg GT Q6H 05/09/19 Lactose-Reduced Food/Fiber [Jevity 1,500 ml PO DAILY 05/09/19 1.2 [place] Liquid] Ondansetron HCl [Zofran] 5 ml PO DAILY PRN 05/09/19 Polyethylene Glycol 3350 [Miralax] 17 gm GT TID 05/09/19 Doxazosin Mesylate [Cardura Xl] 4 mg PO DAILY #30 tab.er.24 07/08/19 Enoxaparin [Lovenox] 70 mg SUBCUT Q12@0600,1800 07/08/19 Past Medical History (Chronic Problems): Chronic Problems (Last Updated 07/09/19 @ 11:[address] Gumaro Kohli MD) Anemia (Chronic) Seizure disorder (Chronic) Pulmonary embolism (Chronic) Nonrheumatic mitral valve prolapse (Chronic) Iron deficiency anemia (Chronic) Chronic respiratory failure (Chronic) Cerebral palsy (Chronic) Quadriplegic Severe mental retardation Chronic constipation PEG tube Edema (Chronic) Surgical History: - - Baclofen pump, colostomy, G-tube, tracheostomy Psychiatric History: No pertinent psych hx - *Family History Maternal Family History: Family History (Last Reviewed 03/24/19 @ 11:39 by Bella Angela) Mother Hypertension Hepatitis C Father Hypertension Atrial fibrillation CAD (coronary artery disease) History Items: - - Mother with history of hypertension hepatitis C. Paternal Family History: Family History (Last Reviewed 03/24/19 @ 11:39 by Bella Angela) Mother Hypertension Hepatitis C Father Hypertension Atrial fibrillation CAD (coronary artery disease) History Items: - - Father with history of hypertension, coronary disease and atrial fibrillation. Lives: With Family Smoking Status: Never smoker Tobacco Use: Non-smoker Alcohol: None Drugs: None Review of Systems - Review of Systems General: Reports: Malaise. Denies: Fever, Fatigue, Night Sweats HEENT: Denies: Vision Change Cardiovascular: Denies: Chest Discomfort, Shortness of Breath, Orthopnea, PND, Peripheral Edema, Palpitations, Lightheadedness, Dizziness, Near Syncope, Syncope Respiratory: Denies: Cough, Sputum Production, Hemoptysis Gastrointestinal: Denies: Hematemesis, Hematochezia, Melena Genitourinary: Denies: Dysuria, Hematuria Skin: Denies: Rash Psychiatric: Reports: Anxiety Endocrine: Denies: Unexplained Weight Loss Hematologic/ Lymphatic: Reports: Anemia Subjectve: Pleasant gentleman in his usual state Objective: Vital Signs Temp Pulse Resp BP Pulse Ox 98.8 F 126 H 15 115/68 95 07/10/19 14:00 07/10/19 14:00 07/10/19 14:00 07/10/19 14:00 07/10/19 14:00 Oxygen Delivery Method Mechanical Ventilator Weight: 167 lb 15.876 oz Body Mass Index (BMI) 32.9 Finger Stick Blood Glucose 132 Intake and Output for Last 24 Hours 07/08/19 07/09/19 07/10/19 23:59 23:59 23:59 Intake Total 1000 / 1000 4177.08 / 4177.08 1113 / 1113 Output Total 2980 / 2980 800 / 800 Balance 1000 / 1000 1197.08 / 1197.08 313 / 313 General: Awake, Alert, Oriented x 3 HEENT: PERRL, EOMI, Sclera Non Icteric Neck: Supple, Good ROM, No Lymph Node Enlargement Lungs: Clear to auscultation Cardiovascular: Regular Rhythm, Normal S1, Normal S2, No Murmurs, No Rubs, No Gallops Vascular: No Carotid Bruits, Normal Femoral Pulses, Normal Radial Pulses, Normal Dorsalis Pedal Pulse, Normal Posterior Tibial Pulses Abdomen: Bowel Sounds Present, Soft, Non Tender, No HSM, No Organomegaly Extremities: No Cyanosis, No Clubbing, No edema Musculoskeletal: No Erythema Skin: No Rashes Lymphatic: No Lymph Node Enlargement Neurological: No Focal Motor or Sensory Deficit Psych/Mental Status: Appropriate 07/10/19 13:45: WBC 4.7, RBC 3.54 L, Hgb 10.0 L, Hct 31.4 L, MCV 88.7, MCH 28.2, MCHC 31.8 L, Plt Count 91 L, MPV 10.6, Immature Gran % (Auto) 0.200, Neut % (Auto) 56.5, Lymph % (Auto) 29.1, [place] % (Auto) 12.3 H, Eos % (Auto) 1.9, Baso % (Auto) 0.0, Absolute Neuts (auto) 2.7, Nucleated RBC % 0 Rhythm: EKG: Sinus tachycardia ECHO: Stress Test: Cardiac Cath: PCI: CT Surgery: Holter monitor: EPS: PPM: CXR: Chest CT Scan: Assessment/Plan 1. Reactive sinus tachycardia * Patient appears to be in a sinus tachycardia which appears to be reactive to his underlying clinical condition. He may be slightly dehydrated. It is not clear whether he is septic at this time. I would recommend that we increase his intravenous fluid administration and continue to monitor him. At this time I do not think there is a reason to add any rate limiting medications to his regimen. * I will call his parents and discussed this with him. * Will continue to follow. * * Thank you for allowing me to participate in the care of your patient. Please don't hesitate to call if any issues arise.
[2019-07-10] MEDS: 0.9% Normal Saline 1,000 ML 75 ML IV (15:48)
[2019-07-10] MEDS: 0.9% Saline Lock 10 ML Syringe IV (20:24)
[2019-07-11] VITALS (23 sets, daily range): BP systolic 95–140; BP diastolic 63–101; PULSE 79–117; RESP 12–28; TEMP 36.2–36.9; O2SAT 92–98
[2019-07-11] MEDS: Baclofen 10 MG Tablet 20 MG GT ×3 (00:30→11:45)
[2019-07-11] MEDS: Gabapentin 100 MG Capsule 500 MG GT ×3 (00:30→11:45)
[2019-07-11] MEDS: 0.9% Normal Saline 1,000 ML 75 ML IV (04:47)
[2019-07-11 04:58] LABS: Absolute Neutrophil Count 2.9 X10^3/uL (2.0-7.7); Basophil# 0.01 X10^3/uL; Basophil% 0.2 % (0-1); Eosinophil# 0.13 X10^3/uL; Eosinophils% 2.2 % (0-5); Hematocrit 30.7 % (40-54); Hemoglobin 9.7 g/dL (13.0-16.5); Lymphocyte % 35.8 % (19-41); Mean Corp Hgb Conc 31.6 g/dL (32-36); Mean Corpuscular Hgb 28.4 pg (27.0-32.0); Mean Corpuscular Volume 89.8 fL (80-94); Mean Platelet Vol. 11.2 fl (6.2-12.0); Monocyte# 0.74 X10^3/uL; Monocyte% 12.6 % (0-10); NRBC Flagged by Analyzer 0 % (0-5); Neutrophil # 2.87 X10^3/uL (2.7-7.7); Platelet Count 102 K/mm3 (150-450); RBC Distribution Width CV 14.2 % (11.6-14.6); RBC Distribution Width SD 46.5 fl (35.1-43.9); Red Blood Count 3.42 M/mm3 (4.6-6.2); White Blood Count 5.9 K/mm3 (4.4-11.0)
[2019-07-11 05:03] LABS: ALB/GLOB Ratio 0.6 RATIO (0.9-2.4); AST(SGOT) 29 U/L (15-37); Alanine Aminotransfer ALT/SGPT 32 U/L (16-61); Albumin, Serum 2.9 g/dL (3.2-5.0); Alkaline Phosphatase 154 U/L (45-117); Anion Gap 7 (5-15); BUN 9 mg/dL (7-18); BUN/Creat Ratio 25.5 RATIO (10-20); Calcium,Total 8.6 mg/dL (8.5-10.1); Chloride 105 mmol/L (98-107); Creatinine, Serum 0.35 mg/dL (0.70-1.30); EST Glomerular Filtration Rate 297 mL/min (>60); Est Glom Filt Rate - Afr Amer 359 mL/min (>60); Estimated Creatinine Clearance 311.45 ml/min; Globulin 4.9 g/dL (2.2-4.2); Glucose 90 mg/dL (74-106); Potassium 3.5 mmol/L (3.5-5.1); Protein, Total 7.8 g/dL (6.4-8.2); Sodium Level 139 mmol/L (136-145)
[2019-07-11] MEDS: Polyethylene Glycol 3350 17 GM PACKET GT ×2 (05:22→11:46)
[2019-07-11] MEDS: Enoxaparin 80 MG/0.8 ML Syringe 70 MG SC (05:22)
[2019-07-11] MEDS: Metoclopramide 10 MG Tablet GT ×2 (05:22→11:46)
[2019-07-11] MEDS: Simethicone 40MG/0.6ML Bottle 40 MG GT ×2 (05:23→11:46)
--- NOTE | 2019-07-11 06:59 | PN_ITS ---
Subjective: The patient was seen and examined at the bedside this morning. Events from the last 24 hours have been reviewed. The patient is currently afebrile, hemodynamically stable and maintaining appropriate oxygen saturations on home ventilator settings. The patient has been tolerating his feeds without significant residuals. The patient is currently documented to be overall net +4.8 L for the hospital admission. Objective: The patient's most recent lab work, culture data and imaging studies have all been personally reviewed. Coronavirus PCR was negative. Urine culture has shown no growth to date. Blood cultures have been unrevealing. Tracheal aspirate was positive for 3+ gram-negative rods. General: Alert, No apparent distress HEENT: Atraumatic, Normocephalic Oral: Moist Mucosa Neck: Supple, No Nodes, Trachea Midline Lungs: Diminished Cardiovascular: Regular rate, Regular Rhythm, Normal S1, Normal S2 Abdomen: Bowel Sounds Present, Soft, Non Tender Extremities: No clubbing, No cyanosis, - - Contracted extremities Skin: - - No significant change from previous Musculoskeletal: No Muscle Wasting Lymphatic: No Cervical, Supraclavicular, or Inguinal Adenopathy Neurological: - - Baseline neurological status with spastic quadriplegia. Psych/Mental Status: Flat Affect Vital Signs Temp Pulse Resp BP Pulse Ox 98.3 F 90 14 113/77 96 07/11/19 04:00 07/11/19 06:00 07/11/19 06:00 07/11/19 06:00 07/11/19 06:00 Oxygen Delivery Method Mechanical Ventilator Weight: 166 lb 14.239 oz Body Mass Index (BMI) 32.9 Finger Stick Blood Glucose 132 Intake and Output for Last 24 Hours 07/09/19 07/10/19 07/11/19 23:59 23:59 23:59 Intake Total 4177.08 / 4177.08 1953 / 2348 1846.75 / 1846.75 Output Total 2980 / 2980 1000 / 1000 120 / 120 Balance 1197.08 / 1197.08 953 / 1348 1726.75 / 1726.75 Labs (Last 48 Hours) 07/10/19 07/11/19 07/11/19 13:45 04:35 04:35 WBC 4.7 5.9 RBC 3.54 L 3.42 L Hgb 10.0 L 9.7 L Hct 31.4 L 30.7 L MCV 88.7 89.8 MCH 28.2 28.4 MCHC 31.8 L 31.6 L RDW Std Deviation 46.5 H 46.5 H RDW Coeff of [place] 14.3 14.2 Plt Count 91 L 102 L MPV 10.6 11.2 Immature Gran % (Auto) 0.200 0.200 Neut % (Auto) 56.5 49.0 Lymph % (Auto) 29.1 35.8 [place] % (Auto) 12.3 H 12.6 H Eos % (Auto) 1.9 2.2 Baso % (Auto) 0.0 0.2 Absolute Neuts (auto) 2.7 2.9 Absolute Lymphs (auto) 1.37 2.10 Nucleated RBC % 0 0 Sodium 139 Potassium 3.5 Chloride 105 Carbon Dioxide 27.0 Anion Gap 7 BUN 9 Creatinine 0.35 L Estim Creat Clear Calc 311.45 Est GFR (MDRD) Af Amer 359 Est GFR (MDRD) Non-Af 297 BUN/Creatinine Ratio 25.5 H Glucose 90 Calcium 8.6 Total Bilirubin 0.20 AST 29 ALT 32 Alkaline Phosphatase 154 H Total Protein 7.8 Albumin 2.9 L Globulin 4.9 H Albumin/Globulin Ratio 0.6 L Microbiology 07/09/19 06:30 Sputum, Tracheal Aspirate Gram Stain - Final 07/09/19 06:30 Sputum, Tracheal Aspirate Respiratory Culture - Preliminary Gram negative lyn 07/08/19 12:10 Urine Catheter - Catheter Urine Culture - Final Culture exhibits no growth. Clinical Impression(s) from Imaging Studies Chest X-Ray 07/08/19 10:48 IMPRESSION: No acute pulmonary pathology of the chest. Electronically Signed: Ruddy Longo DO at 12:38 EDT Tel [phone], Service support , Chest X-Ray 07/09/19 04:05 IMPRESSION: Right basilar atelectasis. Electronically Signed: Ruddy Longo DO at 17:37 EDT Tel [phone], Service support , KUB X-Ray 07/09/19 04:15 IMPRESSION: Probable mild ileus. No sign of bowel obstruction. Electronically Signed: Ruddy Longo DO at 17:41 EDT Tel [phone], Service support , Medical Necessity - Tobacco Use Smoking Status: Never smoker Tobacco Use: Non-smoker Assessment/Plan All Active Problems (Last Updated 07/09/19 @ 11:[address] Gumaro Kohli MD) Bradycardia (Acute) RECOMMENDATIONS: 1. Continue home ventilator support. 2. No need for antibiotics, as I suspect the tracheal aspirate culture is due to colonization. 3. Continue tube feeds per home regimen. 4. Continue therapeutic Lovenox. IMPRESSIONS: 1. Bradycardia/hypotension Unclear etiology at this time. Patient may have had a response to the Ativan given in the ER. Blood pressures have been stable to this point. Would continue with baseline medications and monitor clinically. No indication for pressor therapy at this time. Tracheal aspirate is likely to be Pseudomonas once again, and likely represents colonization. Therefore, I do not see an indication for antimicrobials at this time. 2. Chronic respiratory failure Patient does not appear to have any infiltrates on chest x-ray. No leukocytosis, fever or change in secretions have been reported. Okay to continue with baseline ventilator settings. Low clinical suspicion for infectious etiology. 3. Baseline spastic quadriplegia/cerebral palsy/seizure disorder/[place] cytopenia/iron deficiency anemia Complicates care, management, recovery and prognosis. Okay to continue home medications from my perspective. This note was generated with [employer] dictation software. It may contain incorrect words, spelling, and punctuation that were not noted in checking the note before signing. Inpatient E&M: 12554 [facility] L2
--- NOTE | 2019-07-11 08:03 | PCM.PN.CARD ---
Subjectve: Patient seen and evaluated. Appears to be much better this morning. More cooperative and heart rate better. Objective: Vital Signs Temp Pulse Resp BP Pulse Ox 98.3 F 81 14 113/77 96 07/11/19 04:00 07/11/19 08:00 07/11/19 06:00 07/11/19 06:00 07/11/19 06:00 Oxygen Delivery Method Mechanical Ventilator Weight: 166 lb 14.239 oz Body Mass Index (BMI) 32.9 Finger Stick Blood Glucose 132 Intake and Output for Last 24 Hours 07/09/19 07/10/19 07/11/19 23:59 23:59 23:59 Intake Total 4177.08 / 4177.08 1953 / 2348 1846.75 / 1846.75 Output Total 2980 / 2980 1000 / 1000 120 / 120 Balance 1197.08 / 1197.08 953 / 1348 1726.75 / 1726.75 General: Disoriented HEENT: PERRL, EOMI, Sclera Non Icteric Neck: Supple, Good ROM, No Lymph Node Enlargement Lungs: Clear to auscultation Cardiovascular: Regular Rhythm, Normal S1, Normal S2, No Murmurs, No Rubs, No Gallops Vascular: No Carotid Bruits, Normal Femoral Pulses, Normal Radial Pulses, Normal Dorsalis Pedal Pulse, Normal Posterior Tibial Pulses Abdomen: Bowel Sounds Present, Soft, Non Tender, No HSM, No Organomegaly Extremities: No Cyanosis, No Clubbing, No edema Musculoskeletal: No Erythema Skin: No Rashes 07/10/19 13:45: WBC 4.7, RBC 3.54 L, Hgb 10.0 L, Hct 31.4 L, MCV 88.7, MCH 28.2, MCHC 31.8 L, Plt Count 91 L, MPV 10.6, Immature Gran % (Auto) 0.200, Neut % (Auto) 56.5, Lymph % (Auto) 29.1, [place] % (Auto) 12.3 H, Eos % (Auto) 1.9, Baso % (Auto) 0.0, Absolute Neuts (auto) 2.7, Nucleated RBC % 0 07/11/19 04:35: WBC 5.9, RBC 3.42 L, Hgb 9.7 L, Hct 30.7 L, MCV 89.8, MCH 28.4, MCHC 31.6 L, Plt Count 102 L, MPV 11.2, Immature Gran % (Auto) 0.200, Neut % (Auto) 49.0, Lymph % (Auto) 35.8, [place] % (Auto) 12.6 H, Eos % (Auto) 2.2, Baso % (Auto) 0.2, Absolute Neuts (auto) 2.9, Nucleated RBC % 0 07/11/19 04:35: Sodium 139, Potassium 3.5, Chloride 105, Carbon Dioxide 27.0, Anion Gap 7, BUN 9, Creatinine 0.35 L, Est GFR (MDRD) Af Amer 359, Est GFR (MDRD) Non-Af 297, BUN/Creatinine Ratio 25.5 H, Glucose 90, Calcium 8.6, Total Bilirubin 0.20 Rhythm: EKG: ECHO: Stress Test: Cardiac Cath: PCI: CT Surgery: Holter monitor: EPS: PPM: CXR: Chest CT Scan: Medical Necessity - Tobacco Use Smoking Status: Never smoker Tobacco Use: Non-smoker Assessment/Plan 1. Reactive sinus tachycardia Patient appears to have improved with hydration. This morning his heart rate is in the mid 80s. I suspect this may have been due to baclofen withdrawal as well as dehydration. From the cardiac standpoint I would not make any changes. I will call his parents and discussed this with him. Will continue to follow. Stable from my standpoint for outpatient follow-up. Thank you for allowing me to participate in the care of your patient. Please don't hesitate to call if any issues arise.
[2019-07-11] MEDS: Ferrous Sulfate 300 MG/5 ML UDC GT (08:19)
[2019-07-11] MEDS: Lansoprazole 15 MG Capsule.DR GT (08:23)
[2019-07-11] MEDS: Doxazosin 1 MG Tablet 2 MG GT (08:24)
[2019-07-11] MEDS: Ascorbic Acid 500 MG Tablet PO (08:24)
[2019-07-11] MEDS: Loratadine 10 MG Tablet GT (08:24)
[2019-07-11] MEDS: Phenobarbital 20 MG/5 ML UDC 60 MG GT (08:31)
[2019-07-11] MEDS: Jevity 1.5 1,000 ML 50 ML GT (09:23)
--- NOTE | 2019-07-11 11:20 | DCINST_ITS ---
- Discharge Diagnoses Current Active Problems: Current Active and Chronic Problems (Last Updated 07/09/19 @ 11:[address] Gumaro Kohli MD) Bradycardia (Acute) You will use the following diet at home:: Cardiac Your food should be the consistency of: Regular Your liquids should be the consistency of: Regular/Thin Discharge Activity: Return to Normal Activity Weight Bearing Status: Weight bearing as tolerated Call your doctor if you observe: Fever of 101 or Higher, Dizziness, Swelling in the ankles, Increased palpitations (irregular heartbeat) Instructions: Low Blood Pressure (Hypotension) Allergies/Adverse Reactions: Allergies cisapride monohydrate [From Propulsid] Allergy (Verified 06/04/19 00:05) Rash codeine Adverse Reaction (Verified 06/04/19 00:05) hallucinations metronidazole [From Flagyl] Adverse Reaction (Verified 06/04/19 00:05) Rash morphine Adverse Reaction (Verified 06/04/19 00:05) Hallucinations dust Allergy (Uncoded 06/04/19 00:05) Other Medications to take at Discharge Simethicone 40MG/0.6ML [Mylicon] 40 mg GT TID 11/09/13 Pantoprazole Sodium [Protonix] 20 ml GT BID 08/09/14 Phenobarbital 60 mg GT BID 02/19/17 Cetirizine HCl [Zyrtec] 10 ml GT DAILY 02/04/18 Lactobacillus Acidophilus [Acidophilus] 1 cap GT DAILY 02/04/18 Gabapentin 500 mg GT Q6H 07/14/18 metoclopramide HCl 5 mg/5 mL oral solution 10 mg GT TID ml 09/16/18 Lorazepam [Ativan] 1 mg GT Q8 PRN 10/08/18 Cholecalciferol (Vitamin D3) [Vitamin D3] 5 ml GT DAILY 12/25/18 Cough Assist 1 dose .ROUTE .MEDSUPPLY 12/25/18 Ferrous Sulfate 5 ml GT DAILY 12/25/18 Furosemide 40 mg GT DAILY PRN 12/25/18 Potassium Chloride 1.5 ml GT DAILY PRN 12/25/18 oxygen concentrator 1 dose .ROUTE .MEDSUPPLY 12/25/18 Ascorbic Acid [Vitamin C] 500 mg PO DAILY #150 mls 12/27/18 Baclofen [Ozobax] 20 mg GT Q6H 05/09/19 Lactose-Reduced Food/Fiber [Jevity 1.2 South Liquid] 1,500 ml PO DAILY 05/09/19 Ondansetron HCl [Zofran] 5 ml PO DAILY PRN 05/09/19 Polyethylene Glycol 3350 [Miralax] 17 gm GT TID 05/09/19 Enoxaparin [Lovenox] 70 mg SUBCUT Q12@0600,1800 07/08/19 Doxazosin Mesylate [Cardura] 2 mg GT DAILY #30 tab 07/11/19 The following prescriptions were given: Doxazosin Mesylate [Cardura] 2 mg GT DAILY #30 tab Transmission Status: Pending to [facility] Primary Care Physician: Carlin Ellison MD [STAFF PHYSICIAN] - Timmy Conn MD [Primary Care Provider] - Keep Mikael appointment Test Results: Test results from this visit will be discussed in further detail at your follow- up appointment, if applicable. Please Follow Up With: Maury Waite MD When: 1-2 weeks Please Follow Up With: Yovanny Moreira DO When: 1-2 weeks Proposed Discharge Date: 07/11/19
--- NOTE | 2019-07-11 11:22 | PCM.DC.SUM ---
Discharge Date and Diagnosis - Problem List Patient Problems: Active and Suspected Problems (Last Updated 07/09/19 @ 11:[address] Gumaro Kohli MD) Bradycardia (Acute) Date of Admission: 07/08/19 Date of Discharge: 07/11/19 - Primary Discharge Diagnosis Active and Suspected Problems (Last Updated 07/09/19 @ 11:[address] Gumaro Kohli MD) Bradycardia (Acute) - Secondary Discharge Diagnosis Chronic Problems (Last Updated 07/09/19 @ 11:[address] Gumaro Kohli MD) Anemia (Chronic) Seizure disorder (Chronic) Pulmonary embolism (Chronic) Nonrheumatic mitral valve prolapse (Chronic) Iron deficiency anemia (Chronic) Chronic respiratory failure (Chronic) Cerebral palsy (Chronic) Quadriplegic Severe mental retardation Chronic constipation PEG tube Edema (Chronic) Hospital Course and Treatment Imaging Results: Diagnostic Data Chest X-Ray 07/09/19 04:05 IMPRESSION: Right basilar atelectasis. Electronically Signed: Ruddy Longo DO at 17:37 EDT Tel [phone], Service support , KUB X-Ray 07/09/19 04:15 IMPRESSION: Probable mild ileus. No sign of bowel obstruction. Electronically Signed: Ruddy Longo DO at 17:41 EDT Tel [phone], Service support , Consultations 07/10/19 04:51 Consult: Onc/Wound/director of marketing communications Routine Comment: Reason for Consult:: Ostomy Care Operations: None Procedures: None Summary of Care Provided: The patient is a 39 year old M with an extensive past medical history as above was admitted with a complaint of increased agitation and recurrent bradycardia. This was thought to be possibly due to his leaking colostomy bag, but it didnt improve after it was changed. He was given ativan but it also didnt help. Heart rate was also elevated in the 130s and 140s. Whilst in the ED, he was noted to be bradycardic and blood pressure dropped. Patient was admitted and managed for bradycardia and hypotension. UA was unremarkable and CXR was unremarkable. COVID screen was negative. Patient's bradycardia did not recur. He was hydrated gently with IV fluids. Patient subsequently became tachycardic and cardiology was consulted. Patient's bradycardia resolved and he remained stable. On day of discharge, patient was noted to have a large emesis and his tube feeding was reduced. Patient has had problems with suspected gastroparesis and has had issues with emesis in the past. Tube feeding was gradually increased to 30 cc with a goal of 40 cc he tolerated this. Patient remained stable and was discharged home on 07/11/2019 and is to have tube feeding increased to 40 cc/h at home. He is to follow-up with his primary care doctor and cardiology. He is also to follow-up with general surgeon on account of concerns about gastroparesis and recurrent emesis. Patient seen and examined prior to discharge. He was alert. Per discussion with nurse, no active events noted. Labs and vitals reviewed. Home medication reviewed and reconciled. o/e: Vital Signs Temp Pulse Resp BP Pulse Ox 97.9 F 107 H 23 H 105/81 H 96 07/11/19 15:30 07/11/19 15:30 07/11/19 15:30 07/11/19 15:30 07/11/19 14:15 ] General: Alert, No apparent distress HEENT: Atraumatic, PERRLA, EOMI, Normocephalic Oral: Dry Mucosa, - - macroglossia Neck: Supple, No JVD, Negative Carotid Bruits Lungs: - - diminished breath sounds bibasally, no wheezes or crackles Cardiovascular: Normal S1, Normal S2 Abdomen: Bowel Sounds Present, Soft, Non Tender, Non-Distended, No Hepato-splenomegaly, - - colostomy bag in place Extremities: No clubbing, No cyanosis, No edema, Capillary Refill Less than 3 Seconds Skin: No rashes, No breakdown Musculoskeletal: No Tenderness to Palpation of Joints or Extremities, - - contractures of LEs Lymphatic: No Cervical, Supraclavicular, or Inguinal Adenopathy Neurological: Cranial nerves II-XII grossly intact Psych/Mental Status: Flat Affect Plan is for discharge home today as above. Patient Problems: Active and Suspected Problems (Last Updated 07/09/19 @ 11:[address] Gumaro Kohli MD) Bradycardia (Acute) - Physical Exam Vitals/I&O's: Vital Signs Temp Pulse Resp BP Pulse Ox 97.2 F L 96 16 95/67 95 07/11/19 09:00 07/11/19 10:37 07/11/19 10:37 07/11/19 10:00 07/11/19 10:37 Oxygen Delivery Method Mechanical Ventilator Weight: 166 lb 14.239 oz Body Mass Index (BMI) 32.9 Finger Stick Blood Glucose 132 Intake and Output for Last 24 Hours 07/09/19 07/10/19 07/11/19 23:59 23:59 23:59 Intake Total 4177.08 / 4177.08 1953 / 2348 2146.75 / 2146.75 Output Total 2980 / 2980 1000 / 1000 120 / 120 Balance 1197.08 / 1197.08 953 / 1348 2026.75 / 2025.75 Microbiology Past 72 Hours 07/09/19 06:30 Sputum, Tracheal Aspirate Gram Stain - Final 07/09/19 06:30 Sputum, Tracheal Aspirate Respiratory Culture - Preliminary GNR Poss Pseudomonas sp Streptococcus group B 07/08/19 12:10 Urine Catheter - Catheter Urine Culture - Final Culture exhibits no growth. 07/08/19 11:15 Mucosa - Other Coronavirus COVID-19 PCR - Final Laboratory Results 07/10/19 13:45: WBC 4.7, RBC 3.54 L, Hgb 10.0 L, Hct 31.4 L, MCV 88.7, MCH 28.2, MCHC 31.8 L, RDW Std Deviation 46.5 H, RDW Coeff of Emilee 14.3, Plt Count 91 L, MPV 10.6, Immature Gran % (Auto) 0.200, Neut % (Auto) 56.5, Lymph % (Auto) 29.1, Webster % (Auto) 12.3 H, Eos % (Auto) 1.9, Baso % (Auto) 0.0, Absolute Neuts (auto) 2.7, Absolute Lymphs (auto) 1.37, Nucleated RBC % 0 07/11/19 04:35: WBC 5.9, RBC 3.42 L, Hgb 9.7 L, Hct 30.7 L, MCV 89.8, MCH 28.4, MCHC 31.6 L, RDW Std Deviation 46.5 H, RDW Coeff of Emilee 14.2, Plt Count 102 L, MPV 11.2, Immature Gran % (Auto) 0.200, Neut % (Auto) 49.0, Lymph % (Auto) 35.8, Webster % (Auto) 12.6 H, Eos % (Auto) 2.2, Baso % (Auto) 0.2, Absolute Neuts (auto) 2.9, Absolute Lymphs (auto) 2.10, Nucleated RBC % 0 07/11/19 04:35: Sodium 139, Potassium 3.5, Chloride 105, Carbon Dioxide 27.0, Anion Gap 7, BUN 9, Creatinine 0.35 L, Estim Creat Clear Calc 311.45, Est GFR (MDRD) Af Amer 359, Est GFR (MDRD) Non-Af 297, BUN/Creatinine Ratio 25.5 H, Glucose 90, Calcium 8.6, Total Bilirubin 0.20, AST 29, ALT 32, Alkaline Phosphatase 154 H, Total Protein 7.8, Albumin 2.9 L, Globulin 4.9 H, Albumin/Globulin Ratio 0.6 L Current Medications Acetaminophen (Tylenol Liquid) 650 mg GT Q4H PRN PRN PRN Reason: fever, pain 1-12/01 Last Admin: 07/10/19 00:32 Dose: 650 mg Documented by: Albuterol Sulfate (Ventolin Aerosols) 2.5 mg INHALATION Q2H PRN PRN PRN Reason: SOB/Wheezing Last Admin: 07/09/19 02:36 Dose: 2.5 mg Documented by: Ascorbic Acid (Vitamin C) 500 mg PO DAILY [facility] Last Admin: 07/11/19 08:24 Dose: 500 mg Documented by: Baclofen (Lioresal) 20 mg GT Q6H [facility] Last Admin: 07/11/19 05:22 Dose: 20 mg Documented by: Dextrose (D50w Syringe) 0 gm IV X1 PRN; Protocol PRN Reason: Hypoglycemia Doxazosin Mesylate (Cardura) 2 mg GT DAILY [facility] Last Admin: 07/11/19 08:24 Dose: 2 mg Documented by: Enoxaparin Sodium (Lovenox) 70 mg SC Q12@0600,1800 [facility] Last Admin: 07/11/19 05:22 Dose: 70 mg Documented by: Ferrous Sulfate (Ferrous Sulfate Syrup) 300 mg GT DAILY [facility] Last Admin: 07/11/19 08:19 Dose: 300 mg Documented by: Gabapentin (Neurontin) 500 mg GT Q6H [facility] Last Admin: 07/11/19 05:22 Dose: 500 mg Documented by: Glucagon () 1 mg IM .X1 PRN PRN Reason: Hypoglycemia Heparin Sodium (Beef Lung) () 50 units IV UD PRN PRN Reason: R Port Heparin Flush Hydralazine HCl (Apresoline Iv) 10 mg IV Q4H PRN PRN PRN Reason: SBP > 160 Sodium Chloride () 250 mls @ 15 mls/hr IV .[id number] PRN PRN Reason: Saline Flush Sodium Chloride () 250 mls @ 15 mls/hr IV .[id number] PRN PRN Reason: Additional IVPB Infusion Enteral Nutritional Formula (Jevity 1.5) 1,000 mls @ 50 mls/hr GT .Q20H [facility] Last Admin: 07/11/19 09:23 Dose: 50 mls/hr Documented by: Sodium Chloride () 1,000 mls @ 75 mls/hr IV .[id number] [facility] Last Admin: 07/11/19 04:47 Dose: 75 mls/hr Documented by: Lactobacillus Acidophilus (Acidophilus) 1 tablet GT DAILY [facility] Last Admin: 07/11/19 08:20 Dose: 1 tablet Documented by: Lansoprazole (Lansoprazole) 15 mg GT BID [facility] Last Admin: 07/11/19 08:23 Dose: 15 mg Documented by: Loratadine (Claritin) 10 mg GT DAILY [facility] Last Admin: 07/11/19 08:24 Dose: 10 mg Documented by: Lorazepam (Ativan) 1 mg GT Q8H PRN PRN PRN Reason: AGITATION Last Admin: 07/10/19 16:28 Dose: 1 mg Documented by: Metoclopramide HCl (Reglan) 10 mg GT TID [facility] Last Admin: 07/11/19 05:22 Dose: 10 mg Documented by: Ondansetron HCl (Zofran) 4 mg IV Q8H PRN PRN PRN Reason: NAUSEA/VOMITING Last Admin: 07/09/19 06:21 Dose: 4 mg Documented by: Phenobarbital (Phenobarbital) 60 mg GT BID [facility] Last Admin: 07/11/19 08:31 Dose: 60 mg Documented by: Polyethylene Glycol (Miralax) 17 gm GT TID [facility] Last Admin: 07/11/19 05:22 Dose: 17 gm Documented by: Prochlorperazine Edisylate (Compazine Iv) 10 mg IV Q4H PRN PRN PRN Reason: nausea, emesis Last Admin: 07/09/19 06:59 Dose: 10 mg Documented by: Simethicone (Mylicon) 40 mg GT TID MIKAEL Last Admin: 07/11/19 05:23 Dose: 40 mg Documented by: Sodium Chloride (0.9% Nacl (Sterile) Posiflush) 10 - 40 ml IV UD PRN PRN Reason: Port access or dressing change Sodium Chloride () 10 - 40 ml IV UD PRN PRN Reason: R Port Saline Flush Last Admin: 07/10/19 20:24 Dose: 10 ml Documented by: Discharge Activity: Return to Normal Activity Weight Bearing Status: Weight bearing as tolerated Call your doctor if you observe: Fever of 101 or Higher, Dizziness, Swelling in the ankles, Increased palpitations (irregular heartbeat) Home Medications: Medications to take at Discharge Simethicone 40MG/0.6ML [Mylicon] 40 mg GT TID 11/09/13 Pantoprazole Sodium [Protonix] 20 ml GT BID 08/09/14 Phenobarbital 60 mg GT BID 02/19/17 Cetirizine HCl [Zyrtec] 10 ml GT DAILY 02/04/18 Lactobacillus Acidophilus [Acidophilus] 1 cap GT DAILY 02/04/18 Gabapentin 500 mg GT Q6H 07/14/18 metoclopramide HCl 5 mg/5 mL oral solution 10 mg GT TID ml 09/16/18 Lorazepam [Ativan] 1 mg GT Q8 PRN 10/08/18 Cholecalciferol (Vitamin D3) [Vitamin D3] 5 ml GT DAILY 12/25/18 Cough Assist 1 dose .ROUTE .MEDSUPPLY 12/25/18 Ferrous Sulfate 5 ml GT DAILY 12/25/18 Furosemide 40 mg GT DAILY PRN 12/25/18 Potassium Chloride 1.5 ml GT DAILY PRN 12/25/18 oxygen concentrator 1 dose .ROUTE .MEDSUPPLY 12/25/18 Ascorbic Acid [Vitamin C] 500 mg PO DAILY #150 mls 12/27/18 Baclofen [Ozobax] 20 mg GT Q6H 05/09/19 Lactose-Reduced Food/Fiber [Jevity 1.2 South Liquid] 1,500 ml PO DAILY 05/09/19 Ondansetron HCl [Zofran] 5 ml PO DAILY PRN 05/09/19 Polyethylene Glycol 3350 [Miralax] 17 gm GT TID 05/09/19 Enoxaparin [Lovenox] 70 mg SUBCUT Q12@0600,1800 07/08/19 Doxazosin Mesylate [Cardura] 2 mg GT DAILY #30 tab 07/11/19 Following Prescrptions Were Given to Patient: Doxazosin Mesylate [Cardura] 2 mg GT DAILY #30 tab Transmission Status: Received by [facility] Primary Care Physician: Carlin Ellison MD [STAFF PHYSICIAN] - Timmy Conn MD [Primary Care Provider] - Keep Mikael appointment Please Follow Up With: Maury Waite MD When: 1-2 weeks Please Follow Up With: Yovanny Moreira DO When: 1-2 weeks Patient Instructions: Low Blood Pressure (Hypotension) Disposition: Home Minutes spent on discharge:: 45 Patient Condition:: Stable Medical Necessity - Tobacco Use Smoking Status: Never smoker Tobacco Use: Non-smoker Meaningful Use Info Meaningful Use Diagnoses (Choose all that apply): None applicable Inpatient E&M: 58798 Disch Hosp
--- NOTE | 2019-07-11 11:39 | CASEMGMT ---
Patient is possibly going to be discharged today. However physician would like to watch him until 3p and decide if he can go for sure. Transport will need to be arranged and if SW is not available SW will leave the ambulance form with ICU staff to arrange transport. Shanthi LYMAN MSW
[2019-07-11] MEDS: LORazepam 1 MG Tablet GT (14:35)
--- NOTE | 2019-07-11 15:01 | CASEMGMT ---
Patient is ready for discharge home. LAYA called [facility] and arranged for patient to get picked up around 3. LAYA notified RN who was going to call patient's mom. LAYA called [facility] with [facility] (N)notifying her of discharge. LAYA also faxed d/c instructions, and order to resume home health to N. Shanthi LYMAN MSW
--- NOTE | 2019-07-11 15:30 | NURSING ---
called mother Matteo reviewed discharged instructions, voiced understanding, Transported per [facility] Care per [facility] with home vent to home
== END 2019-07-11 15:35 | disposition home or self-care (01) | DRG 308 ==
LOC: ED 12:37 → ICU 21:38
PROVIDERS: Admitting Provider Family Medicine; Emergency Provider Emergency Medicine; PCP Family Medicine; Referring Provider Family Medicine; Visit Provider Student in an Organized Health Care Education/Training Program
DX: R00.1 Bradycardia, unspecified (principal); G80.0 Spastic quadriplegic cerebral palsy; G40.909 Epilepsy, unspecified, not intractable, without status epilepticus; I27.82 Chronic pulmonary embolism; F72 Severe intellectual disabilities; J96.11 Chronic respiratory failure with hypoxia; J96.12 Chronic respiratory failure with hypercapnia; Z99.11 Dependence on respirator [ventilator] status; D61.818 Other pancytopenia; I95.9 Hypotension, unspecified; R33.9 Retention of urine, unspecified; I34.1 Nonrheumatic mitral (valve) prolapse; D50.9 Iron deficiency anemia, unspecified; R11.12 Projectile vomiting; R00.0 Tachycardia, unspecified; K21.9 Gastro-esophageal reflux disease without esophagitis; K59.09 Other constipation; E66.9 Obesity, unspecified; Z68.32 Body mass index [BMI] 32.0-32.9, adult; Z93.0 Tracheostomy status; Z93.3 Colostomy status; Z93.1 Gastrostomy status; Z79.01 Long term (current) use of anticoagulants; Z79.899 Other long term (current) drug therapy
CPT/HCPCS: 31720; 36415; 36591; 71045; 74018; 80053; 80061; 80184; 81001; 82728; 83540; 83550; 83605; 83735; 84439; 84443; 85025; 85610; 85730; 87040; 87070; 87077; 87086; 87184; 87186; 87205; 87635; 93005; 94002; 94003; 94640; 96361; 96374; 97802; 97803; 99285; J2997; J7030; J7040; P9612; A4216; J2405; U0002

== ENCOUNTER 2019-08-04 01:26 | Emergency (ER) | payer BC, MEDICAID, SELFPAY ==
[2019-07-08 20:45] VITALS: BMI 32.9
[2019-08-04 01:28] VITALS: BP 116/73; PULSE 44; RESP 10; TEMP 34.8; O2SAT 100; BMI 30.2
--- NOTE | 2019-08-04 01:46 | EKG12_ITS ---
Test Reason : Blood Pressure : / mmHG Vent. Rate : 046 BPM Atrial Rate : 046 BPM P-R Int : 180 ms QRS Dur : 106 ms QT Int : 502 ms P-R-T Axes : 068 -01 008 degrees QTc Int : 439 ms Sinus bradycardia with sinus arrhythmia Low voltage QRS ST & T wave abnormality, consider anterior ischemia Abnormal ECG Confirmed by RADHA VARGAS, ENMA ([id number]), medical editor JOSEMANUEL TORRES ([id number]) on 08/07/2019 2:08:52 PM Referred By: ELSI Confirmed By:MEHNAZ GARCIA MD
--- NOTE | 2019-08-04 01:46 | ED.DCSUM_ITS ---
History of Present Illness Chief Complaint: General Illness Informant: Family Narrative: Is nonverbal due to cerebral palsy and mental retardation. Family stated tonight before bed he was doing fine. He had a normal day today. They do monitor his pulse. They stated that his pulse around bedtime was in the 50s to 60s. Sometimes he runs in the 40s which is normal for him. While he was resting this evening his heart rate dipped into the 30s. This concerned the family. He did not have hypotension. They called EMS to bring him in for further evaluation. Currently they stated he is acting normal. - Past Medical History (1) Pulmonary embolism on left Status: Chronic (2) Cerebral palsy Status: Chronic Comment: Quadriplegic Severe mental retardation Chronic constipation PEG tube (3) Chronic respiratory failure Status: Chronic (4) Edema Status: Chronic (5) Iron deficiency anemia Status: Chronic (6) Nonrheumatic mitral valve prolapse Status: Chronic (7) Thrombocytopenia Status: Chronic (8) SIRS (systemic inflammatory response syndrome) Status: Resolved Past Medical History - Allergies and Home Meds Allergies/Adverse Reactions: Allergies cisapride monohydrate [From Propulsid] Allergy (Verified 08/04/19 01:37) Rash codeine Adverse Reaction (Verified 08/04/19 01:37) hallucinations metronidazole [From Flagyl] Adverse Reaction (Verified 08/04/19 01:37) Rash morphine Adverse Reaction (Verified 08/04/19 01:37) Hallucinations dust Allergy (Uncoded 08/04/19 01:37) Other Primary Care Physician: Timmy Conn MD [Primary Care Provider] - Prior records reviewed: Yes Past Medical History: - - See problem list Surgical History: - - Baclofen pump, colostomy, G-tube, tracheostomy Lives: With Family Smoking Status: Never smoker Alcohol: None Drugs: None - Family History Maternal Family History: Family History (Last Reviewed 08/03/19 @ 13:[address] Maury Waite MD) Mother Hypertension Hepatitis C Father Hypertension Atrial fibrillation CAD (coronary artery disease) Family History: Reports: - - Mother with history of hypertension hepatitis C. Paternal Family History: Family History (Last Reviewed 08/03/19 @ 13:[address] Maury Waite MD) Mother Hypertension Hepatitis C Father Hypertension Atrial fibrillation CAD (coronary artery disease) Family History: Reports: - - Father with history of hypertension, coronary disease and atrial fibrillation. Review of Systems ROS: Unable to Obtain - Secondary to patient with MR and nonverbal Physical Exam Vital Signs/Narrative: Vital Signs Temp Pulse Resp BP Pulse Ox 08/04/19 01:28 94.6 F L 44 L 10 L 116/73 100 General: Well nourished, Well developed, - - Patient has spastic cerebral palsy and nonverbal Head: Normocephalic, Atraumatic Eyes: Perrl, EOMI ENT: Moist mucous membranes, No rhinorrhea Neck: Supple, Nontender Cardiovascular: Regular rhythm, No murmurs, Bradycardia - Rate in the 50s which is at his baseline Respiratory: No distress, CTA bilaterally Abdomen: Soft, Nontender, Nondistended, Normal bowel sounds, - - G Tube in place Back: Nontender, Normal Inspection Extremities: Nontender, No edema Skin: Normal color, No rash Neurological: Alert, - - Status at normal baseline per family Diagnostic/Tx/Re-eval - Medical Decision Making Placed on the monitor with heart rate in the normal rate for him in the 50s. EK G obtained that shows sinus bradycardia at a rate of 46. T wave inversion V1 through V5 which is unchanged from prior. Heart rate was watched for approximately an hour. He has been in the 40s 50s and 60s. He has not dipped into the 30s. Blood pressures remain okay. Family is reassured. They will continue to monitor and follow-up. I do not feel he needs emergent lab work or imaging as this just was a low heart rate transient ED Disposition - Plan for ED Patient: Disposition: Home or Assisted Living Diagnosis: Bradycardia Instructions: ED Bradycardia Referrals: Timmy Conn MD [Primary Care Provider] -
[2019-08-04 02:46] VITALS: BP 94/46; PULSE 50; RESP 16; O2SAT 99
== END 2019-08-04 03:40 | disposition home or self-care (01) ==
LOC: ED 02:34
PROVIDERS: Emergency Provider Emergency Medicine; PCP Family Medicine
DX: R00.1 Bradycardia, unspecified (principal); G80.1 Spastic diplegic cerebral palsy; F72 Severe intellectual disabilities; J96.10 Chronic respiratory failure, unspecified whether with hypoxia or hypercapnia; R60.9 Edema, unspecified; D50.9 Iron deficiency anemia, unspecified; I34.1 Nonrheumatic mitral (valve) prolapse; D69.6 Thrombocytopenia, unspecified; K59.09 Other constipation; Z79.899 Other long term (current) drug therapy; Z93.1 Gastrostomy status; Z93.0 Tracheostomy status; Z88.1 Allergy status to other antibiotic agents; Z88.5 Allergy status to narcotic agent; Z86.711 Personal history of pulmonary embolism
CPT/HCPCS: 93005; 99284

== ENCOUNTER 2019-08-09 10:41 | Outpatient (RCR) | payer BC, MEDICAID, SELFPAY ==
[2019-08-09 11:09] LABS: Absolute Lymphocyte Count 1.87 X10^3/uL (0.83-4.51); Absolute Neutrophil Count 1.6 X10^3/uL (2.0-7.7); Basophil# 0.01 X10^3/uL; Basophil% 0.2 % (0-1); Eosinophil# 0.15 X10^3/uL; Eosinophils% 3.7 % (0-5); Hematocrit 34.7 % (40-54); Lymphocyte # 1.87 X10^3/ul (4.0); Lymphocyte % 46.3 % (19-41); Mean Corp Hgb Conc 31.7 g/dL (32-36); Mean Corpuscular Hgb 28.4 pg (27.0-32.0); Mean Corpuscular Volume 89.7 fL (80-94); Mean Platelet Vol. 12.4 fl (6.2-12.0); Monocyte# 0.44 X10^3/uL; Monocyte% 10.9 % (0-10); NRBC Flagged by Analyzer 0 % (0-5); Neutrophil # 1.56 X10^3/uL (2.7-7.7); Neutrophil % 38.7 % (47-70); POSITIVE COUNT YES; Platelet Count 58 K/mm3 (150-450); RBC Distribution Width CV 14.1 % (11.6-14.6); RBC Distribution Width SD 45.7 fl (35.1-43.9); Red Blood Count 3.87 M/mm3 (4.6-6.2)
[2019-08-09 11:11] LABS: Differential Indicated SCAN CRITERIA MET
[2019-08-09 11:30] LABS: ALB/GLOB Ratio 0.6 RATIO (0.9-2.4); AST(SGOT) 33 U/L (15-37); Alanine Aminotransfer ALT/SGPT 47 U/L (16-61); Albumin, Serum 3.4 g/dL (3.2-5.0); Alkaline Phosphatase 181 U/L (45-117); Anion Gap 5 (5-15); BUN 17 mg/dL (7-18); Calcium,Total 9.1 mg/dL (8.5-10.1); Chloride 101 mmol/L (98-107); Cholesterol 209 mg/dL (200); Creatinine, Serum 0.32 mg/dL (0.70-1.30); EST Glomerular Filtration Rate 338 mL/min (>60); Est Glom Filt Rate - Afr Amer 409 mL/min (>60); Ferritin 66 ng/mL (26-388); Globulin 5.4 g/dL (2.2-4.2); Glucose 76 mg/dL (74-106); High Density Lipoprotein 54 mg/dL; Iron 79 ug/dL (65-175); Iron Binding Capacity,Total 306 ug/dL (250-450); PERCENT IRON SATURATION 25.8 % (15.0-55.0); Potassium 4.3 mmol/L (3.5-5.1); Protein, Total 8.8 g/dL (6.4-8.2); Sodium Level 136 mmol/L (136-145); Triglycerides 307 mg/dL; Very Low Density Lipoprotein 61 mg/dL (5-40)
[2019-08-09 11:42] LABS: Platelet Estimate MOD DEC (ADEQ)
[2019-08-09 15:20] LABS: D-Dimer Quantitative (DVT/PE) <= 0.27 FEU/ug/m (0.27-0.49)
== END 2019-08-22 23:59 ==
LOC: LABSPEC 10:41
PROVIDERS: Family Provider Family Medicine; PCP Family Medicine; Referring Provider Internal Medicine Cardiovascular Disease; Visit Provider Internal Medicine Cardiovascular Disease
DX: D64.9 Anemia, unspecified (principal); E46 Unspecified protein-calorie malnutrition; G40.909 Epilepsy, unspecified, not intractable, without status epilepticus
CPT/HCPCS: 80053; 80061; 80184; 82728; 83540; 83550; 85025; 85379

== ENCOUNTER 2019-08-19 18:45 | Emergency (ER) | payer BC, MEDICAID, SELFPAY ==
[2019-08-19 18:47] VITALS: BP 94/35; PULSE 124; RESP 20; TEMP 36.8; O2SAT 96; BMI 31.8
--- NOTE | 2019-08-19 19:18 | EKG12_ITS ---
Test Reason : GI BLEED Blood Pressure : / mmHG Vent. Rate : 104 BPM Atrial Rate : 104 BPM P-R Int : 152 ms QRS Dur : 088 ms QT Int : 344 ms P-R-T Axes : 031 -21 092 degrees QTc Int : 452 ms Sinus tachycardia with Fusion complexes Low voltage QRS Nonspecific ST & T wave abnormality Incomplete right bundle branch block Abnormal ECG Confirmed by ENRIKE VARGAS, BESS ([id number]), editor managing director JOSEMANUEL TORRES ([id number]) on 08/22/2019 11:04:16 AM Referred By: PONCE Confirmed By:BESS CALVERT MD
--- NOTE | 2019-08-19 19:18 | CT_ITS ---
HISTORY: BLOOD IN GTUBE, ON THINNERS, CP PATIENT, TRACH TECHNIQUE: Helically acquired images were obtained of the abdomen and pelvis following the intravenous administration of 100 ML of Isovue-370 Iodinated contrast. 2D reformats. No oral contrast was administered. A radiation dose optimization technique was used for this scan. COMPARISON: CT scan of the chest from June 12, 2019. CT scan of the abdomen and pelvis from February 03, 2019. Chest x-ray from less than one hour earlier FINDINGS: # of images incl. paperwork: 435 LUNG BASES: A single lumen port is present within the right chest. Its catheter tip is within the SVC near the right atrium CT abdomen: Scoliosis. Vertebral body height is normal. The gallbladder remains, but is somewhat contracted with some calcifications but could be within the wall or within some peripherally calcified gallstones. This is the same as the previous study. A percutaneous gastrostomy tube is present. This appears to be within adequate position without evidence of leakage or abscess. Liver, spleen, pancreas, and adrenal glands, are normal. The kidneys are normal. The aorta is normal. CT pelvis: No ascites is present. The prostate gland is very small. The appendix is normal. Series 2 image 62. The bladder is normal. Soft tissue fills the rectum. This is similar to the previous study. 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 This is unchanged. The amount of tissue distending the rectum is similar to the previous study. No bowel obstruction is perceived. There are some liquid and air-fluid levels within the remaining colon. The remaining colon is interposed at the hepatic flexure between the margin of the liver and the diaphragm. 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 CT/Abdomen/Pelvis W IV Cont ONLY IMPRESSION: No definitive acute disease perceived. Chronic changes similar to that of the previous study. Possible diarrheal state with some fluid and gas within the remaining rectum. Left hemiabdomen colostomy. Adequate position of gastrostomy tube. Individualized dose optimization techniques were used for this CT. at 2111 Reported and signed by: Bakari Thacker MD Electronically Signed: Bakari Thacker MD at 21:10 EDT Tel , Service support ,
--- NOTE | 2019-08-19 19:20 | ED.VIS.GEN ---
History of Present Illness Chief Complaint: GI Bleed Informant: Family, - - RN Onset: Today Timing: - - once at TF residual check Quality: 2-3cc blood from G-tube Associated Symptoms: Agitated today Narrative: Patient with a history of cerebral palsy and spasticity has been more agitated all day today, which is unusual and abnormal for him. He has a G-tube for feeding, he has had mild residuals of 15-20 cc which is not unusual for him, but today there was 2 or 3 cc of blood in it according to the nurse who helps to care for him who is also present to provide history. His mental status is poor at baseline, and the patient is unable to provide any history. He has had no fevers. He is on a ventilator chronically and they have noticed no difference in his breathing. He cannot indicate pain, but tends to be agitated like this if he is in pain. No vomiting. He has a colostomy because he has significant issues with constipation and because of his mental status it became very difficult to treat and deal with. He has had good output of 200 cc overnight shift, 300 or so today, this is not unusual for him, with a scant amount of blood mixed in with what largely is nonbloody light brown liquid bowel movement. No melanotic stools. He has been on Lovenox for the last couple months due to pulmonary embolism that was found during his last admission. Family states his agitation at this current time is not as bad as it was earlier today for most of the day. - Past Medical History (1) Cerebral palsy Status: Chronic Comment: Quadriplegic Severe mental retardation Chronic constipation PEG tube (2) Chronic respiratory failure Status: Chronic (3) Iron deficiency anemia Status: Chronic (4) Nonrheumatic mitral valve prolapse Status: Chronic (5) Pulmonary embolism on left Status: Chronic Past Medical History - Allergies and Home Meds Allergies/Adverse Reactions: Allergies cisapride monohydrate [From Propulsid] Allergy (Verified 08/19/19 18:46) Rash codeine Adverse Reaction (Verified 08/19/19 18:46) hallucinations metronidazole [From Flagyl] Adverse Reaction (Verified 08/19/19 18:46) Rash morphine Adverse Reaction (Verified 08/19/19 18:46) Hallucinations dust Allergy (Uncoded 08/19/19 18:46) Other Primary Care Physician: Timmy Conn MD [Primary Care Provider] - Dominic Hernandez DO [STAFF PHYSICIAN] - (Call on Wednesday to discuss.) Surgical History: - - Baclofen pump, colostomy, G-tube, tracheostomy Lives: With Family Smoking Status: Never smoker - Family History Maternal Family History: Family History (Last Reviewed 08/03/19 @ 13:[address] Maury Waite MD) Mother Hypertension Hepatitis C Father Hypertension Atrial fibrillation CAD (coronary artery disease) Family History: Reports: - - Mother with history of hypertension hepatitis C. Paternal Family History: Family History (Last Reviewed 08/03/19 @ 13:[address] Maury Waite MD) Mother Hypertension Hepatitis C Father Hypertension Atrial fibrillation CAD (coronary artery disease) Family History: Reports: - - Father with history of hypertension, coronary disease and atrial fibrillation. Review of Systems ROS: Unable to Obtain Physical Exam Vital Signs/Narrative: Vital Signs Temp Pulse Resp BP Pulse Ox 08/19/19 18:47 98.2 F 124 H 20 H 94/35 L 96 Inital Vital Signs reviewed: Yes General: Well nourished, Well developed, No Acute Distress - Noncommunicative, eyes open but not following commands. Appears mildly agitated, with occasional decerebrate posturing bilateral upper extremities Head: Normocephalic, Atraumatic ENT: Moist mucous membranes, No rhinorrhea Neck: Supple, Nontender Cardiovascular: Regular rate, Regular rhythm, No murmurs, Tachycardia Respiratory: No distress, CTA bilaterally, Chest nontender Abdomen: Soft, Normal bowel sounds, No masses, - - Mildly distended. Difficult to assess for tenderness. Abdomen soft. Light brown stool non-melanotic filled colostomy bag, with a very small amount of blood on top of it. No active bleeding. Also a very small amount of blood present in the G-tube. Skin: Normal color, No rash, No Trauma Neurological: Lethargic - Baseline per parents, Weakness - Not moving lower extremities. Occasional spasticity and decerebrate posturing both upper extremities. Psychological: Agitated - Mildly. Diagnostic/Tx/Re-eval Impressions Abdomen/Pelvis CT 08/19/19 19:18 IMPRESSION: No definitive acute disease perceived. Chronic changes similar to that of the previous study. Possible diarrheal state with some fluid and gas within the remaining rectum. Left hemiabdomen colostomy. Adequate position of gastrostomy tube. Individualized dose optimization techniques were used for this CT. at 2111 Reported and signed by: Bakari Thacker MD Electronically Signed: Bakari Thacker MD at 21:10 EDT Tel , Service support , Chest X-Ray 08/19/19 19:27 IMPRESSION: Pulmonary hypoexpansion with pulmonary venous congestion. at 2100 Reported and signed by: Bakari Thacker MD Electronically Signed: Bakari Thacker MD at 20:58 EDT Tel , Service support , 08/19/19 19:18 Abdomen/Pelvis W IV Cont ONLY [CT] Stat 08/19/19 19:27 Chest 1 View (Portable) [RAD] Stat Laboratory Results 08/19/19 08/19/19 08/19/19 19:45 20:00 20:00 WBC 5.1 RBC 3.80 L Hgb 10.9 L Hct 34.3 L MCV 90.3 MCH 28.7 MCHC 31.8 L RDW Std Deviation 47.3 H RDW Coeff of Emilee 14.5 Plt Count 118 L MPV 11.4 Immature Gran % (Auto) 0.200 Neut % (Auto) 59.8 Lymph % (Auto) 31.9 [place] % (Auto) 6.9 Eos % (Auto) 1.0 Baso % (Auto) 0.2 Absolute Neuts (auto) 3.0 Absolute Lymphs (auto) 1.61 Nucleated RBC % 0 Sodium 141 Potassium 4.5 Chloride 105 Carbon Dioxide 30.0 Anion Gap 6 BUN 16 Creatinine 0.38 L Estim Creat Clear Calc 188.23 Est GFR (MDRD) Af Amer 332 Est GFR (MDRD) Non-Af 275 BUN/Creatinine Ratio 42.4 H Glucose 76 Lactic Acid 0.8 Calcium 8.9 Total Bilirubin 0.20 AST 31 ALT 42 Alkaline Phosphatase 184 H Troponin I < 0.015 Total Protein 9.0 H Albumin 3.5 Globulin 5.5 H Albumin/Globulin Ratio 0.6 L Urine Color Urine Clarity Urine pH Ur Specific Nettie Urine Protein Urine Glucose (UA) Urine Ketones Urine Occult Blood Urine Nitrite Urine Bilirubin Urine Urobilinogen Ur Leukocyte Esterase Urine RBC Urine WBC Ur Squamous Epith Cells Urine Bacteria Urine Mucus Blood Type Antibody Screen 08/19/19 08/19/19 20:00 20:55 WBC RBC Hgb Hct MCV MCH MCHC RDW Std Deviation RDW Coeff of Emilee Plt Count MPV Immature Gran % (Auto) Neut % (Auto) Lymph % (Auto) [place] % (Auto) Eos % (Auto) Baso % (Auto) Absolute Neuts (auto) Absolute Lymphs (auto) Nucleated RBC % Sodium Potassium Chloride Carbon Dioxide Anion Gap BUN Creatinine Estim Creat Clear Calc Est GFR (MDRD) Af Amer Est GFR (MDRD) Non-Af BUN/Creatinine Ratio Glucose Lactic Acid Calcium Total Bilirubin AST ALT Alkaline Phosphatase Troponin I Total Protein Albumin Globulin Albumin/Globulin Ratio Urine Color Straw Urine Clarity Clear Urine pH 8.0 Ur Specific Nettie 1.015 Urine Protein Negative Urine Glucose (UA) Normal Urine Ketones Negative Urine Occult Blood Negative Urine Nitrite Negative Urine Bilirubin Negative Urine Urobilinogen Normal Ur Leukocyte Esterase Negative Urine RBC 0 SEEN Urine WBC 0 SEEN Ur Squamous Epith Cells 0-5 SEEN Urine Bacteria 0 SEEN Urine Mucus 0 SEEN Blood Type A POSITIVE Antibody Screen NEGATIVE - Rhythm Strip Rhythm Strip: Sinus Tach Rate: 104 Ectopy: None - EKG Initial EKG Interpretation: No Acute Injury Pattern, Sinus Tachycardia, Non-Specific ST Changes - Medical Decision Making I asked the parents that they had a preference for what they would like him treated with for his agitation at this time. They state that Ativan has worked well in the past, and they think that would be good. For that reason Ativan was ordered to help keep him more comfortable at their request. This helped significantly, his tachycardia resolved with a heart rate now at 71 and he is breathing 12 times a minute. No more spasticity or disturber posturing. His hemoglobin is stable compared with a measurement 10 days ago, and his BUN is not elevated, confirming he does not have any type of significant upper GI bleeding going on. I discussed with Dr. Kurtz on for Dr. Hernandez who is the patient's physician monitoring/managing his anticoagulant, he agrees with holding the Lovenox and allowing the patient to follow-up, but advises restarting it soon as possible after resolution of bleeding is known, preferably within the next 24-36 hours. Discussed that with the family they are comfortable with that plan. ED Disposition - Plan for ED Patient: Disposition: Home or Assisted Living Diagnosis: Upper GI bleeding, Cerebral palsy, Pulmonary embolism on left Instructions: ED Bleed UGI Stable Referrals: Timmy Conn MD [Primary Care Provider] - Dominic Hernandez DO [STAFF PHYSICIAN] - (Call on Wednesday to discuss.) Additional Instructions: Hold Lovenox dosing for now. Continue checking tube feed residuals for amount and blood presence. If there is no blood on tube feed residuals after holding 2 Lovenox doses, you may restart it and continue monitoring.
--- NOTE | 2019-08-19 19:27 | RAD_ITS ---
HISTORY: Cerebral Palsy patient - unable to communicate--agitated today. Blood seen with residual in G tube. Bloated--soft. No idea if patient is in pain. EXAM: XR Chest 1 View: COMPARISON: July 09, 2019 FINDINGS: # of images incl. paperwork: 1 Elevation of the right hemidiaphragm with pulmonary hypoexpansion persists. Tracheostomy tube remains in adequate position. Right IJ single-lumen access port catheter tip is within the anticipated location of the SVC above the right atrium. Gastrostomy tube is suspected at the very inferior aspect of the exam. No free air is perceived. RAD/Chest 1 View (Portable) IMPRESSION: Pulmonary hypoexpansion with pulmonary venous congestion. at 2100 Reported and signed by: Bakari Thacker MD Electronically Signed: Bakari Thacker MD at 20:58 EDT Tel , Service support ,
[2019-08-19] MEDS: 0.9% Normal Saline 1,000 ML 125 ML IV (19:56)
[2019-08-19 20:06] LABS: Absolute Lymphocyte Count 1.61 X10^3/uL (0.83-4.51); Basophil# 0.01 X10^3/uL; Basophil% 0.2 % (0-1); Eosinophil# 0.05 X10^3/uL; Hematocrit 34.3 % (40-54); Hemoglobin 10.9 g/dL (13.0-16.5); Lymphocyte # 1.61 X10^3/ul (4.0); Lymphocyte % 31.9 % (19-41); Mean Corp Hgb Conc 31.8 g/dL (32-36); Mean Corpuscular Hgb 28.7 pg (27.0-32.0); Mean Corpuscular Volume 90.3 fL (80-94); Mean Platelet Vol. 11.4 fl (6.2-12.0); Monocyte# 0.35 X10^3/uL; Monocyte% 6.9 % (0-10); NRBC Flagged by Analyzer 0 % (0-5); Neutrophil # 3.02 X10^3/uL (2.7-7.7); Neutrophil % 59.8 % (47-70); Platelet Count 118 K/mm3 (150-450); RBC Distribution Width CV 14.5 % (11.6-14.6); RBC Distribution Width SD 47.3 fl (35.1-43.9); White Blood Count 5.1 K/mm3 (4.4-11.0)
[2019-08-19 20:13] VITALS: BP 120/81; PULSE 98; RESP 16; O2SAT 94
[2019-08-19] MEDS: LORazepam 2 MG/ML Syringe 1 MG IV (20:13)
[2019-08-19 20:20] LABS: ALB/GLOB Ratio 0.6 RATIO (0.9-2.4); AST(SGOT) 31 U/L (15-37); Alanine Aminotransfer ALT/SGPT 42 U/L (16-61); Albumin, Serum 3.5 g/dL (3.2-5.0); Alkaline Phosphatase 184 U/L (45-117); Anion Gap 6 (5-15); BUN 16 mg/dL (7-18); BUN/Creat Ratio 42.4 RATIO (10-20); Calcium,Total 8.9 mg/dL (8.5-10.1); Chloride 105 mmol/L (98-107); Creatinine, Serum 0.38 mg/dL (0.70-1.30); EST Glomerular Filtration Rate 275 mL/min (>60); Est Glom Filt Rate - Afr Amer 332 mL/min (>60); Estimated Creatinine Clearance 188.23 ml/min; Globulin 5.5 g/dL (2.2-4.2); Glucose 76 mg/dL (74-106); Potassium 4.5 mmol/L (3.5-5.1); Sodium Level 141 mmol/L (136-145)
[2019-08-19 20:20] LABS: Lactic Acid 0.8 mmol/L (0.4-1.9)
[2019-08-19 21:05] LABS: Bacteria 0 SEEN /hpf (None Seen); Mucous, Urine 0 SEEN /hpf (<or=2+); Red Blood Cells-Urine 0 SEEN /hpf (0-5); White Blood Cells 0 SEEN /hpf (0-5)
[2019-08-19 21:12] LABS: Color, Urine Straw (Yellow); Glucose, Dipstick Normal (Normal); Ketone-Dipstick Negative (Negative); Leukocyte Esterase-Dipstick Negative /ul (Negative); Nitrite-Dipstick Negative (Negative); Occult Blood-Urine Negative /ul (Negative); Protein-Dipstick Negative (Negative); Specific Gravity, Urine 1.015 (1.002-1.030); Urine Bilirubin Dipstick Negative (Negative); Urine Clarity Clear (Clear); Urine Urobilinogen Normal (Normal)
[2019-08-19 21:34] LABS: Squamous Epithelial Cells - UA 0-5 SEEN /hpf (0-5)
[2019-08-19 21:42] VITALS: BP 96/62; PULSE 71; RESP 12; O2SAT 94
[2019-08-19 22:49] VITALS: BP 93/56; PULSE 60; RESP 12; O2SAT 94
== END 2019-08-19 23:19 | disposition home or self-care (01) ==
PROVIDERS: Emergency Provider Emergency Medicine; PCP Family Medicine
DX: K92.2 Gastrointestinal hemorrhage, unspecified (principal); G80.8 Other cerebral palsy; I26.99 Other pulmonary embolism without acute cor pulmonale; Z93.3 Colostomy status; K59.09 Other constipation; F72 Severe intellectual disabilities; D50.9 Iron deficiency anemia, unspecified; I34.1 Nonrheumatic mitral (valve) prolapse; Z87.09 Personal history of other diseases of the respiratory system; Z86.711 Personal history of pulmonary embolism; Z79.01 Long term (current) use of anticoagulants; Z79.899 Other long term (current) drug therapy
CPT/HCPCS: 36591; 71045; 74177; 80053; 81001; 83605; 84484; 85025; 86850; 86900; 86901; 87040; 93005; 96361; 96374; 96375; 99283; J7030; P9612; A4216; J3490

== ENCOUNTER 2019-09-05 20:45 | Inpatient (IN) | payer BC, MEDICAID, SELFPAY ==
[2019-09-05 20:47] VITALS: BP 140/99; PULSE 112; RESP 25; TEMP 36.6; O2SAT 95; BMI 34.0
[2019-09-05 21:35] LABS: Absolute Lymphocyte Count 0.71 X10^3/uL (0.83-4.51); Eosinophil# 0.03 X10^3/uL; Eosinophils% 0.6 % (0-5); Hematocrit 30.8 % (40-54); Lymphocyte # 0.71 X10^3/ul (4.0); Lymphocyte % 13.8 % (19-41); Mean Corp Hgb Conc 32.5 g/dL (32-36); Mean Corpuscular Hgb 28.6 pg (27.0-32.0); Mean Platelet Vol. 11.8 fl (6.2-12.0); Monocyte# 0.41 X10^3/uL; NRBC Flagged by Analyzer 0 % (0-5); Neutrophil # 3.98 X10^3/uL (2.7-7.7); Neutrophil % 77.4 % (47-70); POSITIVE COUNT YES; Platelet Count 64 K/mm3 (150-450); RBC Distribution Width CV 14.6 % (11.6-14.6); RBC Distribution Width SD 46.3 fl (35.1-43.9); White Blood Count 5.1 K/mm3 (4.4-11.0)
[2019-09-05] MEDS: 0.9% Normal Saline 1,000 ML 150 ML IV (21:35)
[2019-09-05 21:40] LABS: Differential Indicated SCAN CRITERIA MET
[2019-09-05 21:49] LABS: ALB/GLOB Ratio 0.6 RATIO (0.9-2.4); AST(SGOT) 17 U/L (15-37); Alanine Aminotransfer ALT/SGPT 30 U/L (16-61); Albumin, Serum 3.1 g/dL (3.2-5.0); Alkaline Phosphatase 208 U/L (45-117); Anion Gap 4 (5-15); BUN 13 mg/dL (7-18); BUN/Creat Ratio 40.9 RATIO (10-20); Calcium,Total 8.4 mg/dL (8.5-10.1); Chloride 99 mmol/L (98-107); Creatinine, Serum 0.32 mg/dL (0.70-1.30); EST Glomerular Filtration Rate 334 mL/min (>60); Est Glom Filt Rate - Afr Amer 404 mL/min (>60); Globulin 5.3 g/dL (2.2-4.2); Glucose 79 mg/dL (74-106); Lactic Acid 1.3 mmol/L (0.4-1.9); Potassium 4.2 mmol/L (3.5-5.1); Protein, Total 8.4 g/dL (6.4-8.2); Sodium Level 132 mmol/L (136-145)
[2019-09-05 21:51] VITALS: BP 116/82; PULSE 97; RESP 22; TEMP 36.6; O2SAT 93
--- NOTE | 2019-09-05 22:00 | RAD_ITS ---
STUDY: X-RAY CHEST REASON FOR EXAM: Male, 39 years old. breathing harder than normal, increased pulse, right leg is red swollen and warm TECHNIQUE: Single AP portable view of the chest. COMPARISON: August 19, 2019 FINDINGS: 1. Tracheostomy tube noted above the clavicles. 2. Stable right chest port and catheter. 3. Small shallow lung volumes unchanged on the prior study. 4. Mild bilateral pulmonary edema noted. No definite consolidation seen. 5. Normal heart size. 6. The remaining visualized structures are stable. RAD/Chest 1 View (Portable) IMPRESSION: Mild bilateral pulmonary edema Electronically Signed: Allan Kent MD at 22:28 EDT , Service support ,
[2019-09-05 22:03] LABS: Platelet Estimate MOD DEC (ADEQ); Red Cell Morphology NORM C+C NORMAL (NORM C&C)
--- NOTE | 2019-09-05 22:20 | HP.PCM_ITS ---
Problem List (1) Sepsis Status: Acute Qualifiers: Sepsis type: sepsis due to unspecified organism Sepsis acute organ dysfunction status: unspecified Qualified Code(s): A41.9 - Sepsis, unspecified organism (2) Cellulitis Status: Acute Qualifiers: Site of cellulitis: extremity Site of cellulitis of extremity: lower extremity Laterality: right Qualified Code(s): L03.115 - Cellulitis of right lower limb (3) Thrombocytopenia Status: Chronic (4) Pulmonary embolism on left Status: Chronic (5) Iron deficiency anemia Status: Chronic Qualifiers: Iron deficiency anemia type: unspecified iron deficiency Qualified Code(s): D50.9 - Iron deficiency anemia, unspecified (6) Chronic respiratory failure Status: Chronic Qualifiers: Respiratory failure complication: hypoxia and hypercapnia Qualified Code(s): J96.11 - Chronic respiratory failure with hypoxia; J96.12 - Chronic respiratory failure with hypercapnia (7) Cerebral palsy Status: Chronic Qualifiers: Cerebral palsy type: spastic quadriplegic Qualified Code(s): G80.0 - Spastic quadriplegic cerebral palsy Comment: Quadriplegic Severe mental retardation Chronic constipation PEG tube History of Present Illness Date of Admission: 09/05/19 Chief Complaint: Dyspnea, tachycardia, RLE erythema, edema. The patient is a 39 y/o M w/ PMHx: Chronic anemia, Chronic Hypoxic and Hypercarbic Respiratory Failure on Chronic Ventilation following w/ Dr. Monsalve, Cerebral Palsy with quadriplegia w/ hx baclofen pump, colostomy, chronic catheter, frequent difficulties with aspiration, G-J tube in place, Seizure disorder, Hx PE following prolonged admission on lovenox therapy with ongoing thrombocytopenia following with Hematology who presents to the [facility] ED on 09/05/19 with onset on day of ED presentation, RLE edema and redness, increased warmth to touch, primarily upper right thigh with increased respiratory rate and increased heart rate prompting his family to bring him to the ED. mother also notes that patient has recently had some black flecks in his ostomy output therefore primary care physician had them perform a guaiac but she is unsure of results. Work-up in the ED included T 97.9, heart rate 112, BP 140/99, respiratory rate 25, 95% mechanically ventilated at home machine, CBC with WBC 5.1, hemoglobin 10, platelet 64 with noted lymphopenia, CMP with sodium 132, BUN/creatinine 13/0.32, lactic acid 1.3, AST/ALT 17/30, alk phos 208, blood culture x2 pending per ED, CXR with no obvious acute cardiopulmonary findings and similar to prior. In the ED patient administered Unasyn, vancomycin and normal saline. Past Medical History Past Medical History (Chronic Problems): Chronic Problems (Last Reviewed 08/03/19 @ 13:[address] Maury Waite MD) Thrombocytopenia (Chronic) Pulmonary embolism on left (Chronic 06/14/19) Nonrheumatic mitral valve prolapse (Chronic) Iron deficiency anemia (Chronic) Chronic respiratory failure (Chronic) Cerebral palsy (Chronic) Quadriplegic Severe mental retardation Chronic constipation PEG tube Edema (Chronic) Medical History: Medical History (Last Reviewed 08/03/19 @ 13:[address] Maury Waite MD) Thrombocytopenia (Chronic) D69.6 SIRS (systemic inflammatory response syndrome) (Resolved) R65.10 Pulmonary embolism on left (Chronic) Onset Date: 06/14/19 I26.99 Nonrheumatic mitral valve prolapse (Chronic) I34.1 Iron deficiency anemia (Chronic) D50.9 Chronic respiratory failure (Chronic) J96.10 Cerebral palsy (Chronic) G80.9 Quadriplegic Severe mental retardation Chronic constipation PEG tube Edema (Chronic) R60.9 Debility R53.81 History of seizure disorder Z86.69 Obesity E66.9 Redundant colon Q43.[address] Z93.0 Allergies cisapride monohydrate [From Propulsid] Allergy (Verified 08/19/19 18:46) Rash codeine Adverse Reaction (Verified 08/19/19 18:46) hallucinations metronidazole [From Flagyl] Adverse Reaction (Verified 08/19/19 18:46) Rash morphine Adverse Reaction (Verified 08/19/19 18:46) Hallucinations dust Allergy (Uncoded 08/19/19 18:46) Other Home Medications: Ambulatory Orders Medication Instructions Recorded Simethicone 40MG/0.6ML [Mylicon] 40 mg GT TID 11/09/13 Pantoprazole Sodium [Protonix] 20 ml GT BID 08/09/14 Phenobarbital 60 mg GT BID 02/19/17 Cetirizine HCl [Zyrtec] 10 ml GT DAILY 02/04/18 Lactobacillus Acidophilus 1 cap GT DAILY 02/04/18 [Acidophilus] metoclopramide HCl 5 mg/5 mL oral 10 mg GT TID ml 09/16/18 solution Lorazepam [Ativan] 1 mg GT Q8 PRN 10/08/18 Cholecalciferol (Vitamin D3) 5 ml GT DAILY 12/25/18 [Vitamin D3] Cough Assist 1 dose .ROUTE .MEDSUPPLY 12/25/18 Ferrous Sulfate 5 ml GT DAILY 12/25/18 Furosemide 40 mg GT DAILY PRN 12/25/18 Potassium Chloride 1.5 ml GT DAILY PRN 12/25/18 oxygen concentrator 1 dose .ROUTE .MEDSUPPLY 12/25/18 Baclofen [Ozobax] 20 mg GT Q6H 05/09/19 Lactose-Reduced Food/Fiber [Jevity 1,500 ml PO DAILY 05/09/19 1.2 South Liquid] Ondansetron HCl [Zofran] 5 ml PO DAILY PRN 05/09/19 Polyethylene Glycol 3350 [Miralax] 17 gm GT TID 05/09/19 Doxazosin Mesylate [Cardura] 2 mg GT DAILY #30 tab 07/11/19 enoxaparin 80 mg/0.8 mL 70 mg SUBCUT Q12@0600,1800 08/03/19 subcutaneous syringe gabapentin 250 mg/5 mL (5 mL) oral 400 mg PO Q6H ml 08/03/19 solution Ascorbic Acid [Vitamin C] 500 mg GT DAILY 08/04/19 Surgical History: Surgical History (Last Reviewed 08/03/19 @ 13:[address] Maury Waite MD) Colostomy in place Z93.3 Heel cord lengthening bilaterally History of colostomy History of gastrostomy tube placement History of open reduction and internal fixation (ORIF) procedure Z98.890 left hip History of soft tissue release Bilateral hips and knees Status post insertion of intrathecal baclofen pump Z96.89 status post removal in March 2018. Surgical History: - - Baclofen pump, colostomy, G-tube, tracheostomy Psychiatric History: No pertinent psych hx Smoking Status: Never smoker - *Family History Maternal Family History: Family History (Last Reviewed 08/03/19 @ 13:[address] Maury Waite MD) Mother Hypertension Hepatitis C Father Hypertension Atrial fibrillation CAD (coronary artery disease) History Items: - - Mother with history of hypertension hepatitis C. Paternal Family History: Family History (Last Reviewed 08/03/19 @ 13:[address] Maury Waite MD) Mother Hypertension Hepatitis C Father Hypertension Atrial fibrillation CAD (coronary artery disease) History Items: - - Father with history of hypertension, coronary disease and at rial fibrillation. Review of Systems Constitutional: Reports: Malaise, Weakness, Fatigue. Denies: Chills, Fever, Weight Change HEENT: Denies: Head Aches, Sinus Congestion, Sinus Drainage Cardiovascular: Reports: - - Increased tachycardia.. Denies: Chest Pain, Chest Pressure, Chest Tightness, Light Headedness, Orthopnea, Palpitations, Syncope Respiratory: Reports: - - Increased respiratory rate.. Denies: Cough, Shortness of breath at rest, Sputum production Gastrointestinal: Reports: - - Abnormal black flecks in ostomy output.. Denies: Abdominal Pain, Nausea, Vomiting Genitourinary: Denies: Dysuria Musculoskeletal: Denies: Joint Pain, Joint Tenderness Skin: Reports: Skin Changes. Denies: Rash, Wounds Neurological: Denies: Numbness, Tingling, Focal weakness Psychiatric: Denies: Anxiety, Depression, Homicidal Ideations, Suicidal Ideations Hematologic/ Lymphatic: Reports: Anemia, Easy Bruising, Easy Bleeding Comment: ROS per mother. VTE Information - Inpt Only VTE Present on Admission: No VTE Mechan Device Prophylaxis: SCD's VTE Pharm Prophylaxis ordered?: Yes Patient Problems: Active and Suspected Problems (Last Reviewed 08/03/19 @ 13:[address] Maury Waite MD) Sepsis (Acute) Cellulitis (Acute) Subjective: Seated upright in the ED bed, no obvious distress, more alert than prior admissions, moving to stimulus. Objective: Physical Examination: General: awake, alert, nonverbal, seated upright in the ED bed, no obvious distress, moving to stimuli, interactive. Skin: normal color, turgor, no icterus, cyanosis except notable staged ecchymoses to the abdomen secondary to subcu Lovenox injections as well as significant right lower extremity primarily thigh erythema with significant warmth to touch and edema, HEENT: AT/NC, EOMI, PERRLA, moderately dry MM with protruding tongue which is chronic, no carotid bruits or JVD noted, trach in place. Lungs: Diminished breath sounds, > bases, no obvious distress, mildly increased RR, poor effort, no obvious discharge around trach insertion, no rales, ronchi or wheezing. Heart: Improved, mildly tachycardic with regular rhythm; no gallop, rub audible. Abdomen: soft, obese, staged ecchymoses NTTP, ND, normal BS, no HSM, ostomy output with small black flecks. Extremities: no cyanosis, chronic BL LE pedal and hand mild edema, non-pitting, quadriplegic status, see skin with right upper thigh region erythema, edema, warm to touch. Neurological: Patient awake, alert, interactive, moves to stimuli, currently no market increase lethargy from baseline, nonverbal, unable to answer any orientation questions, severe MRDD with cerebral palsy with quadriplegia, no distress apparent; cognitive function baseline intact per family; pupils equally reactive to light and accomodation; cranial nerves difficult to assess given MRDD quadriplegic status, strength severely globally decreased. Psychiatric: affect appears normal per patient per discussion with family, no acute evidence of depressive or anxiety feeling. - Physical Exam Vitals/I&O's: Vital Signs Temp Pulse Resp BP Pulse Ox 97.9 F 112 H 25 H 140/99 H 95 09/05/19 20:47 09/05/19 20:47 09/05/19 20:47 09/05/19 20:47 09/05/19 20:47 Oxygen Delivery Method Mechanical Ventilator Weight: 174 lb 2.643 oz Body Mass Index (BMI) 34.0 Finger Stick Blood Glucose 132 Laboratory Results 09/05/19 21:00: WBC 5.1, RBC 3.50 L, Hgb 10.0 L, Hct 30.8 L, MCV 88.0, MCH 28.6, MCHC 32.5, RDW Std Deviation 46.3 H, RDW Coeff of Emilee 14.6, Plt Count 64 L, MPV 11.8, Immature Gran % (Auto) 0.200, Neut % (Auto) 77.4 H, Lymph % (Auto) 13.8 L, [place] % (Auto) 8.0, Eos % (Auto) 0.6, Baso % (Auto) 0.0, Absolute Neuts (auto) 4.0, Absolute Lymphs (auto) 0.71 L, Nucleated RBC % 0, Platelet Estimate MOD DEC, RBC Morphology NORM C+C 09/05/19 21:00: Sodium 132 L, Potassium 4.2, Chloride 99, Carbon Dioxide 29.0, Anion Gap 4 L, BUN 13, Creatinine 0.32 L, Estim Creat Clear Calc 223.52, Est GFR (MDRD) Af Amer 404, Est GFR (MDRD) Non-Af 334, BUN/Creatinine Ratio 40.9 H, Glucose 79, Calcium 8.4 L, Total Bilirubin 0.30, AST 17, ALT 30, Alkaline Phosphatase 208 H, Total Protein 8.4 H, Albumin 3.1 L, Globulin 5.3 H, Albumin/Globulin Ratio 0.6 L 09/05/19 21:00: Lactic Acid 1.3 Current Medications Sodium Chloride () 1,000 mls @ 150 mls/hr IV .Q6H40M JOYCE Last Admin: 09/05/19 21:35 Dose: 150 mls/hr Documented by: Vancomycin HCl 1,250 mg/ (Sodium Chloride) 275 mls @ 250 mls/hr IV X1 ONE Stop: 09/05/19 22:30 Assessment/Plan All Active Problems (Last Reviewed 08/03/19 @ 13:[address] Maury Waite MD) Sepsis (Acute) Cellulitis (Acute) SIRS (systemic inflammatory response syndrome) (Resolved) Bradycardia (Resolved) The patient is a 39 y/o M w/ PMHx: Chronic anemia, Chronic Hypoxic and Hypercarbic Respiratory Failure on Chronic Ventilation following w/ Dr. Monsalve, Cerebral Palsy with quadriplegia w/ hx baclofen pump, colostomy, chronic catheter, frequent difficulties with aspiration, G-J tube in place, Seizure disorder, Hx PE following prolonged admission on lovenox therapy with ongoing thrombocytopenia following with Hematology who presents to the [facility] ED on 09/05/19 with onset on day of ED presentation, RLE edema and redness, increased warmth to touch, primarily upper right thigh with increased respiratory rate and increased heart rate. 1. Acute Sepsis secondary to Acute RLE Cellulitis: Will admit to PCU given chronic vent needs, maintain on IV Rocephin and vancomycin given exposure history, will request ultrasound of the extremity the patient is anticoagulated but is vacillated between oral and subcu regimen over the last several months, plan repeat CBC in AM, continue affected extremity elevation above heart when seated and in bed, monitor erythema outline with VS checks. 2. Acute on chronic thrombocytopenia: Admission platelets 64, suspect likely secondary to anticoagulant therapy which was started over the last several months secondary to pulmonary emboli, continue to trend CBC, continued on lovenox therapy. 3. Hx Pulmonary embolism: We will continue patient therapeutic Lovenox as had been noted to be previously on oral anticoagulant newer agent but was felt not compatible with patient antiseizure medications therefore he was transitioned back to lovenox. Closely continue to monitor CBC given thrombocytopenia. Following with Hematology. 4. Abnormal ostomy output: Patient with reportedly black flecks in his ostomy output, continued currently on chronic iron supplementation this may be related but to be cautious will repeat guaiac here is unclear results but stable hemoglobin to baseline currently although acute on chronic thrombocytopenia on chronic anticoagulant therapy as noted. 5. Chronic normocytic anemia, Fe deficiency anemia: Admission Hgb 10, baseline appears 8-9, continue Fe supplementation. 6. Spastic quadriplegia with cerebral palsy: Colostomy in place, continue GJ tube feeds, barrier cream as needed, wound RN for ostomy care as needed, aspiration precautions, continue home baclofen regimen, continue home vent settings per family request and usage of home machine. 7. Seizure disorder: We will continue home phenobarbital, gabapentin. 8. GERD: We will maintain on home Protonix regimen. 9. DVT prophylaxis: SCDs, continue therapeutic Lovenox. 10. CODE status: Patient parents present, remains Full Code. Inpatient E&M: 30417 Init Hosp L3
--- NOTE | 2019-09-05 22:27 | ED.VISSUMM ---
- ER Visit Summary Date of Service: 09/05/19 Chief Complaint: [Redness and swelling to right thigh] History of Present Illness: The patient is a 39 M [presents to the emergency department with redness and swelling to the right thigh that parents noticed this evening. Patient also was noted to be tachycardic and breathing faster than usual.] Patient has not been ill leading up to this afternoon. Patient has multiple medical issues including recently diagnosed PE for which she is on Lovenox. Patient has history of cerebral palsy as well as seizure disorder. Patient has history of respiratory failure. Patient has colostomy as well as tracheostomy and gastric tube. Patient cannot give any history and the history comes from the parents. Physical Examination: [HEENT-PERRLA, EOMI. Cranial nerves II through XII grossly intact. TMs clear. Mucous membranes moist. No adenopathy. Nonverbal. Patient has tracheostomy. Cardiovascular-regular and tachycardic. No murmurs auscultated. Lungs-coarse breath sounds bilaterally with some mild tachypnea. No accessory muscle use or retractions. Abdomen-normoactive bowel sounds, soft, nontender, no rebound or rigidity, no peritoneal signs. Extremities-intact ?4, normal range of motion, normal pulses, atraumatic. Upper and lower extremities are flaccid.] Patient does have diffuse erythema over the medial proximal thigh that is warm to the touch. Patient has diffuse edema of the right thigh which appears bigger than the left. Test Results: [CBC with differential count 5.1, hemoglobin 10, hematocrit 31, plate 64. Chemistries unremarkable. Lactate was 1.3. Chest x-ray showed some chronic changes otherwise nothing acute.] Emergency Department Course and Treatment: [Cultures ordered. Patient was started on Unasyn and vancomycin.] Treatment Plan: [Admit] Disposition: [Admit] Impression: [Cellulitis right leg Sepsis syndrome] This note was generated with [employer] dictation software. It may contain incorrect words, spelling, and punctuation that were not noted in review of the chart prior to signing ED Disposition - Plan for ED Patient: Referrals: Timmy Conn MD [Primary Care Provider] -
[2019-09-05 22:51] VITALS: BP 111/78; PULSE 91; RESP 17; TEMP 36.8; O2SAT 94
--- NOTE | 2019-09-05 22:56 | ED.RN ---
family requests simethicone, gabapentin, baclofen to be given according to their home schedule at 0600, 1200, 1800, 0000.
[2019-09-05 23:19] VITALS: BP 120/81; PULSE 88; RESP 19; TEMP 36.8; O2SAT 97
--- NOTE | 2019-09-05 23:58 | VDLE_ITS ---
Reason For Study: Swelling RIGHT GSV is normal. CFV is compressible, spontaneous, phasic, competent and demonstrates normal augmentation. FV is compressible, spontaneous, phasic, competent and demonstrates normal augmentation. PTV is compressible. Limited study due to quadriplegia and suboptimal positioning, very difficult to visualize behind the knee even with nurse holding leg Unable to visualize Rt PopV, Rt T/P Trunk, Rt GastrocV, and Rt PeroV. Procedure Exam performed portable in patient room. The study was technically limited. The study was technically difficult. Limited views were obtained. A preliminary report was called and/or faxed to Mirella GRIMALDO. Interpretation Summary Technically very limited examination right lower extremity as noted No evidence for acute deep venous thrombosis right lower extremity The right popliteal and tibioperoneal trunk and gastrocnemius and peroneal veins not visualized. Patent and compressible right great saphenous vein Ordering Physician: Tania Randle Referring Physician: Timmy Conn Performed By: Nora Lara, SENAIT, RVT
[2019-09-06] VITALS (42 sets, daily range): BP systolic 69–150; BP diastolic 34–124; PULSE 67–163; RESP 13–46; TEMP 36.1–40.7; O2SAT 87–100; BMI 33.0
[2019-09-06 00:17] LABS: Magnesium 1.8 mg/dL (1.6-2.6)
--- NOTE | 2019-09-06 00:40 | CPS ---
patient on home vent, RT helped patient's mom get the home ventilator plugged in and pt comfortable, pt setup on a continuous pulse oximeter, pt resting. SpO2 94%, HR 106
[2019-09-06] MEDS: Baclofen 10 MG Tablet 20 MG GT ×4 (01:04→17:59)
[2019-09-06] MEDS: Phenobarbital 20 MG/5 ML UDC 60 MG GT ×3 (01:06→22:01)
[2019-09-06] MEDS: Jevity 1.5 1,000 ML 50 ML GT (01:07)
[2019-09-06] MEDS: Metoclopramide 10 MG Tablet GT ×4 (01:11→22:01)
[2019-09-06] MEDS: Enoxaparin 80 MG/0.8 ML Syringe 70 MG SC ×3 (01:12→18:46)
[2019-09-06] MEDS: Polyethylene Glycol 3350 17 GM PACKET GT ×4 (01:17→22:01)
--- NOTE | 2019-09-06 01:23 | PCM.RX.CS ---
Consult Pharmacy has been consulted to manage selected antiobiotic: Vancomycin Type of Consult: New start Suspected Infection: Sepsis Prior Doses of Antibiotics Received/Current Regimen: Medications Vancomycin HCl (Vancomycin) 1,000 mg in 200 mls @ 200 mls/hr IV Q8H JOYCE Discontinued Medications Vancomycin HCl 1,250 mg/ (Sodium Chloride) 275 mls @ 250 mls/hr IV X1 ONE Stop: 09/05/19 22:30 Last Admin: 09/05/19 22:47 Dose: 250 mls/hr Labs: Sodium 132 mmol/L (136-145) L 09/05/19 21:00 Potassium 4.2 mmol/L (3.5-5.1) 09/05/19 21:00 Chloride 99 mmol/L (98-107) 09/05/19 21:00 Carbon Dioxide 29.0 mmol/L (21.0-32.0) 09/05/19 21:00 Anion Gap 4 (5-15) L 09/05/19 21:00 BUN 13 mg/dL (7-18) 09/05/19 21:00 Creatinine 0.32 mg/dL (0.70-1.30) L 09/05/19 21:00 Est GFR (MDRD) Af Amer 404 mL/min (>60) 09/05/19 21:00 Est GFR (MDRD) Non-Af 334 mL/min (>60) 09/05/19 21:00 BUN/Creatinine Ratio 40.9 RATIO (10-20) H 09/05/19 21:00 Glucose 79 mg/dL (74-106) 09/05/19 21:00 Microbiology: Microbiology 09/06/19 01:00 Stool Stool Occult Blood (LONG) - Final Occult Blood Positive Weight used for dosin.6 kg Estimated Creatinine Clearance: >100 Goal Trough: 15-20 mcg/mL Pharmacy Plan for Drug Dosing: Pharmacy Service will continue to monitor and adjust dosing as required. Follow-Up Labs: Trough Vancomycin Labs to be done on [date and time ordered]: 09/06/19 @7609
[2019-09-06] MEDS: Lansoprazole 15 MG Capsule.DR GT ×3 (01:27→22:07)
[2019-09-06] MEDS: Simethicone 40MG/0.6ML Bottle 120 MG GT ×4 (01:50→17:54)
[2019-09-06] MEDS: GABAPENTIN 250 MG/5 ML SOLUTION GT ×2 (06:19→17:53)
[2019-09-06 06:20] LABS: Absolute Lymphocyte Count 1.63 X10^3/uL (0.83-4.51); Basophil# 0.01 X10^3/uL; Basophil% 0.2 % (0-1); Eosinophil# 0.02 X10^3/uL; Eosinophils% 0.3 % (0-5); Hematocrit 31.4 % (40-54); Hemoglobin 10.2 g/dL (13.0-16.5); Lymphocyte # 1.63 X10^3/ul (4.0); Lymphocyte % 25.4 % (19-41); Mean Corp Hgb Conc 32.5 g/dL (32-36); Mean Corpuscular Hgb 28.6 pg (27.0-32.0); Mean Platelet Vol. 11.8 fl (6.2-12.0); Monocyte# 0.68 X10^3/uL; Monocyte% 10.6 % (0-10); NRBC Flagged by Analyzer 0 % (0-5); Neutrophil # 4.04 X10^3/uL (2.7-7.7); POSITIVE COUNT YES; Platelet Count 73 K/mm3 (150-450); RBC Distribution Width CV 14.5 % (11.6-14.6); Red Blood Count 3.57 M/mm3 (4.6-6.2); White Blood Count 6.4 K/mm3 (4.4-11.0)
[2019-09-06] MEDS: Vancomycin IV 1,000 MG/200 ML BAG 200 MG IV ×3 (06:20→23:17)
[2019-09-06] MEDS: LORazepam 1 MG Tablet GT (06:22)
[2019-09-06 07:21] LABS: ALB/GLOB Ratio 0.6 RATIO (0.9-2.4); AST(SGOT) 20 U/L (15-37); Alanine Aminotransfer ALT/SGPT 29 U/L (16-61); Albumin, Serum 3.2 g/dL (3.2-5.0); Alkaline Phosphatase 214 U/L (45-117); Anion Gap 5 (5-15); BUN 9 mg/dL (7-18); BUN/Creat Ratio 20.6 RATIO (10-20); Calcium,Total 8.8 mg/dL (8.5-10.1); Chloride 104 mmol/L (98-107); Creatinine, Serum 0.44 mg/dL (0.70-1.30); EST Glomerular Filtration Rate 232 mL/min (>60); Est Glom Filt Rate - Afr Amer 281 mL/min (>60); Estimated Creatinine Clearance 162.56 ml/min; Globulin 5.5 g/dL (2.2-4.2); Glucose 86 mg/dL (74-106); Potassium 4.2 mmol/L (3.5-5.1); Protein, Total 8.7 g/dL (6.4-8.2); Sodium Level 135 mmol/L (136-145)
[2019-09-06] MEDS: Acetaminophen 650 MG/20 ML UDC GT (07:37)
[2019-09-06] MEDS: 0.9% Normal Saline 1,000 ML 100 ML IV (07:44)
[2019-09-06] MEDS: LORazepam 2 MG/ML Syringe 1 MG IV ×2 (08:24→09:58)
[2019-09-06] MEDS: 0.9% Saline Lock 10 ML Syringe IV ×3 (08:25→21:52)
[2019-09-06] MEDS: 0.9% Normal Saline 1,000 ML 999 ML IV ×3 (08:32→13:00)
--- NOTE | 2019-09-06 08:32 | CPS ---
[address]004....Pt assessed. Pt remains on home ventilator at this time. Per nurse ativan was given prior but pt remains agitated. HR 160's, RR 44 and pt's temp is 105. BS are diminished and clear. Mother and father at bedside along with pt's nurse and Leeanne Palma. Family was informed per nurse that the Dr has been called and will be down to see pt shortly. Family and nursing informed to call this therapist if anything is needed from respiratory.
[2019-09-06] MEDS: Acetaminophen 650 MG/20 ML UDC 350 MG GT (08:56)
[2019-09-06] MEDS: Ferrous Sulfate 300 MG/5 ML UDC GT (09:13)
[2019-09-06] MEDS: Ascorbic Acid 500 MG Tablet GT (09:22)
[2019-09-06] MEDS: Loratadine 10 MG Tablet GT (09:22)
[2019-09-06] MEDS: Doxazosin 1 MG Tablet 2 MG GT (09:27)
--- NOTE | 2019-09-06 10:03 | CASEMGMT ---
LAYA called patient's Board of DD Integration Assistant, Trinity Conn letting her know patient has been admitted to the hospital. LAYA left LAYA's phone number in the event she has questions. Shanthi LYMAN MSW
--- NOTE | 2019-09-06 10:38 | CPS ---
1015 pt assessed...pt appears to be less agitated than previous assessment. HR 130's-140's. RR upper 30's. Spoke with pt's mother, she stated they did increase ativan. Pt's mother asked if she could turn off the RR alarm since it is sounding continuously. mother was advised to increase alarm limit and not turn alarm off.
[2019-09-06 12:21] LABS: Bedside Glucose 100 mg/dL (70-110)
--- NOTE | 2019-09-06 13:06 | CASEMGMT ---
RE [place] assessment: Phone interview with patient's mother, Matteo Diaz, for initial transition planning/care coordination assessment. RN ANAYELI introduced self and role at [facility], mother voices understanding at this time. Mom answers all questions appropriately at this time. Care providers, pharmacy, and demographics verified at this time. Presentation: Breathing harder than normal, increased pulse, right leg swollen/warm-Pt has a hx of Cerebral palsy and has a colostomy, trach, and peg tube. Admitting dx: Sepsis, cellulitis RLE PCP: [facility] Specialists: Mariann, cardio; Bello, pulm; Beatriz, ENT; Tab, eye; Lisa, neuro Preferred Pharmacy: [facility] Van Insurance: [employer] Prescription Benefit: Yes LNOK: Matteo Diaz, mother; Michael Diaz III, father Living Arrangements: Pt lives with parents in 1 story home and pt has nurses 10-12 daily thru [facility] and aides 4-5nights/week. Transportation: Pt's family transports at times and mother states also uses ambulance transport, whomever is available. DME/HHC: Pt has the following DME: feeding pump, w/c, hospital bed, ramp, cough assist device, ceiling tract, elevator to basement, estefany lift, and concentrator/ventilator thru [facility]. Mother states no need for any further DME at this time. Pt's CM thru Board of DD is Trinity Conn and mother would like her notified. Nathen SW states she already notified her previously. Mom states no concerns with going home at time of discharge. Pt is disabled. Pt does not smoke or drink ETOH. Mom states no further concerns/needs at this time. Pt Goal: Home w/ family Plan: Home w/ family [place]
--- NOTE | 2019-09-06 13:24 | NURSING ---
Pt's mom at bedside. Pt's mom has been suctioning pt via trach PRN.
[2019-09-06] MEDS: 0.9% Normal Saline 1,000 ML 150 ML IV ×2 (14:01→21:30)
--- NOTE | 2019-09-06 14:04 | CPS ---
1340....pt resting comfortably with mother at bedside. 96% on home vent,89HR,20RR.
--- NOTE | 2019-09-06 14:41 | NURSING ---
This RN called and gave report to Aby SET UP [employer]ING MACH[employer]ES.
--- NOTE | 2019-09-06 15:00 | NURSING ---
Arrived to ICU-5
--- NOTE | 2019-09-06 15:10 | CT_ITS ---
STUDY: CT ABDOMEN AND PELVIS WITH CONTRAST REASON FOR EXAM: Male, 39 years old. SEPTIC SHOCK, BLOOD IN STOOL,RESPIRATORY FAILURE.RT LE CELLULITIS -- HX:CEREBRAL PALSY,QUADRIPLEGIA,CHRONIC VENTILATION,CHRONIC CATHETER,COLOSTOMY RADIATION DOSAGE (If Supplied By Facility): CTDIvol = ( 18.97 ) mGy, DLP = ( 1410.87 ) mGycm TECHNIQUE: Transaxial images were obtained from the dome of the diaphragm to the symphysis pubis with oral contrast. IV 100mL Isovue-370 was administered. Sagittal and coronal images were reconstructed. Individualized dose optimization techniques were used for this CT. COMPARISON: CT of abdomen and pelvis dated August 18, 2021 FINDINGS: 1. Mild atelectasis bilateral lower lobes. 2. Stable and normal appearing liver, pancreas, spleen, adrenal glands, and bilateral kidneys. 3. No hydronephrosis. No free air or free fluid. 4. Contracted gallbladder containing a small stone noted. 5. Stable PEG tube. The stomach is otherwise unremarkable. Unremarkable small bowel. No demonstrated bowel obstruction. 6. Unremarkable colonic loops. Left anterior colostomy is stable. 7. Surgical anastomotic changes of the sigmoid colon are stable and without mild fluid distention of the rectal vault and thickening of the mucosa reidentified. Thickening of the mucosa is likely due to chronic disease. 8. Chronic postsurgical scarring in the subcutaneous fat of the right anterior abdominal wall. 9. Stable osseous structures. 10. Small fat-containing femoral hernias reidentified. 11. The bladder is collapsed around a Augustin catheter and balloon. 12. Unremarkable aorta and major branches. CT/Abdomen/Pelvis WITH Contrast IMPRESSION: * No demonstrated free air or free fluid or acute bowel abnormality. * Gallstone. * Mild bibasilar atelectasis Electronically Signed: Allan Kent MD at 21:22 EDT , Service support ,
--- NOTE | 2019-09-06 15:12 | CT_ITS ---
STUDY: CT RIGHT HIP AND THIGH WITHOUT CONTRAST REASON FOR EXAM: Male, 39 years old. SEPTIC SHOCK, BLOOD IN STOOL,RESPIRATORY FAILURE.RT LE CELLULITIS HX:CEREBRAL PALSY,QUADRIPLEGIA,CHRONIC VENTILATION,CHRONIC CATHETER,COLOSTOMY RADIATION DOSAGE (If Supplied By Facility): CTDIvol = ( 14.16 ) mGy, DLP = ( 777.46 ) mGycm TECHNIQUE: Transaxial imaging of the right lower extremity was performed without intravenous administration of contrast material. COMPARISON EXAMS: FINDINGS: There is demineralization of the femoral head, neck, intertrochanteric region and visualized proximal femur. Normal acetabulum. There is mild articular joint space narrowing. No visualized fracture or cortical erosion or bony destruction. No evidence of osteomyelitis. No periosteal reaction. Moderate narrowing noted in the medial aspect of the knee joint. Normal visualized superior and inferior pubic rami and ischial tuberosities. There is significant fatty atrophy of the muscles throughout the thigh. No visualized fluid collections. Mild subcutaneous edema is present. No soft tissue gas. No demonstrated acute fracture. CT/Extremity Lower WITH Contrast IMPRESSION: 1. Mild subcutaneous edema. 2. No evidence of a fracture. 3. No evidence of osteomyelitis or abscess. Electronically Signed: Allan Kent MD at 21:28 EDT , Service support ,
--- NOTE | 2019-09-06 15:15 | CON.PCM_ITS ---
Problem List (1) Sepsis Status: Acute Qualifiers: Sepsis type: sepsis due to unspecified organism Sepsis acute organ dysfunction status: unspecified Qualified Code(s): A41.9 - Sepsis, unspecified organism Reason for Consult: fever Consulted by: Dr. Gonzalez History of Present Illness: The patient is a 39 year old M with cerebral palsy, baclofen pump, chronic trach, presented from home yesterday to the ED with sudden onset fever, R thigh erythema. Mother at bedside reports no recent abx, no trauma to leg, no sick contacts, no change in white sputum from trach, no change in stool other than some possible blood recently. Came to ED, admitted on vanc/zosyn, still high fever overnight, now persistent hypotension this afternoon. Redness on leg is improved. ROS unobtainable. - Medical History Past Medical History (Chronic Problems): Chronic Problems (Last Reviewed 08/03/19 @ 13:[address] Maury Waite MD) Thrombocytopenia (Chronic) Pulmonary embolism on left (Chronic 06/14/19) Nonrheumatic mitral valve prolapse (Chronic) Iron deficiency anemia (Chronic) Chronic respiratory failure (Chronic) Cerebral palsy (Chronic) Quadriplegic Severe mental retardation Chronic constipation PEG tube Edema (Chronic) Allergies/Adverse Reactions: Allergies cisapride monohydrate [From Propulsid] Allergy (Verified 08/19/19 18:46) Rash codeine Adverse Reaction (Verified 08/19/19 18:46) hallucinations metronidazole [From Flagyl] Adverse Reaction (Verified 08/19/19 18:46) Rash morphine Adverse Reaction (Verified 08/19/19 18:46) Hallucinations dust Allergy (Uncoded 08/19/19 18:46) Other Home Medications: Ambulatory Orders Medication Instructions Recorded Simethicone 40MG/0.6ML [Mylicon] 40 mg GT 4X/DAY 11/09/13 Pantoprazole Sodium [Protonix] 20 ml GT BID 08/09/14 Phenobarbital 60 mg GT BID 02/19/17 Cetirizine HCl [Zyrtec] 10 ml GT DAILY 02/04/18 Lactobacillus Acidophilus 1 cap GT DAILY 02/04/18 [Acidophilus] metoclopramide HCl 5 mg/5 mL oral 10 mg GT TID ml 09/16/18 solution Lorazepam [Ativan] 1 mg GT Q8 PRN 10/08/18 Cholecalciferol (Vitamin D3) 5 ml GT DAILY 12/25/18 [Vitamin D3] Cough Assist 1 dose .ROUTE .MEDSUPPLY 12/25/18 Ferrous Sulfate 5 ml GT DAILY 12/25/18 oxygen concentrator 1 dose .ROUTE .MEDSUPPLY 12/25/18 Baclofen [Ozobax] 20 mg GT Q6H 05/09/19 Lactose-Reduced Food/Fiber [Jevity 50 ml GT DAILY 05/09/19 1.2 South Liquid] Ondansetron HCl [Zofran] 5 ml PO DAILY PRN 05/09/19 Polyethylene Glycol 3350 [Miralax] 17 gm GT TID 05/09/19 Doxazosin Mesylate [Cardura] 2 mg GT DAILY #30 tab 07/11/19 enoxaparin 80 mg/0.8 mL 70 mg SUBCUT Q12@0600,1800 08/03/19 subcutaneous syringe gabapentin 250 mg/5 mL (5 mL) oral 250 mg PO Q6H ml 08/03/19 solution Ascorbic Acid [Vitamin C] 500 mg GT DAILY 08/04/19 - Social History SMOKING STATUS:: Never smoker Vital Signs Temp Pulse Resp BP Pulse Ox 98.5 F 78 18 72/38 L 96 09/06/19 14:00 09/06/19 14:00 09/06/19 14:00 09/06/19 14:19 09/06/19 14:00 Oxygen Flow Rate (L/min) 4 Oxygen Delivery Method Trach Collar Weight: 76.6 kg Body Mass Index (BMI) 33.0 Finger Stick Blood Glucose 132 Microbiology Past 72 Hours 09/06/19 01:00 Stool Occult Blood (LONG) - Final Stool Occult Blood Positive Laboratory Tests Past 24 Hrs 09/05/19 09/05/19 09/05/19 21:00 21:00 21:00 WBC 5.1 RBC 3.50 L Hgb 10.0 L Hct 30.8 L MCV 88.0 MCH 28.6 MCHC 32.5 RDW Std Deviation 46.3 H RDW Coeff of Emilee 14.6 Plt Count 64 L MPV 11.8 Immature Gran % (Auto) 0.200 Neut % (Auto) 77.4 H Lymph % (Auto) 13.8 L [place] % (Auto) 8.0 Eos % (Auto) 0.6 Baso % (Auto) 0.0 Absolute Neuts (auto) 4.0 Absolute Lymphs (auto) 0.71 L Nucleated RBC % 0 Platelet Estimate MOD DEC RBC Morphology NORM C+C Sodium 132 L Potassium 4.2 Chloride 99 Carbon Dioxide 29.0 Anion Gap 4 L BUN 13 Creatinine 0.32 L Estim Creat Clear Calc 223.52 Est GFR (MDRD) Af Amer 404 Est GFR (MDRD) Non-Af 334 BUN/Creatinine Ratio 40.9 H Glucose 79 Lactic Acid 1.3 Calcium 8.4 L Magnesium Total Bilirubin 0.30 AST 17 ALT 30 Alkaline Phosphatase 208 H Total Protein 8.4 H Albumin 3.1 L Globulin 5.3 H Albumin/Globulin Ratio 0.6 L 09/05/19 09/06/19 09/06/19 21:00 05:55 05:55 WBC 6.4 RBC 3.57 L Hgb 10.2 L Hct 31.4 L MCV 88.0 MCH 28.6 MCHC 32.5 RDW Std Deviation 46.0 H RDW Coeff of Emilee 14.5 Plt Count 73 L MPV 11.8 Immature Gran % (Auto) 0.500 Neut % (Auto) 63.0 Lymph % (Auto) 25.4 [place] % (Auto) 10.6 H Eos % (Auto) 0.3 Baso % (Auto) 0.2 Absolute Neuts (auto) 4.0 Absolute Lymphs (auto) 1.63 Nucleated RBC % 0 Platelet Estimate RBC Morphology Sodium 135 L Potassium 4.2 Chloride 104 Carbon Dioxide 26.0 Anion Gap 5 BUN 9 Creatinine 0.44 L Estim Creat Clear Calc 162.56 Est GFR (MDRD) Af Amer 281 Est GFR (MDRD) Non-Af 232 BUN/Creatinine Ratio 20.6 H Glucose 86 Lactic Acid Calcium 8.8 Magnesium 1.8 Total Bilirubin 0.30 AST 20 ALT 29 Alkaline Phosphatase 214 H Total Protein 8.7 H Albumin 3.2 Globulin 5.5 H Albumin/Globulin Ratio 0.6 L - Other Studies Radiology: [] reviewed Other Studies: [] Route of nutrition/ use of supplements: [] Nutritional Intake: [] IV Site: [] Augustin Catheter: [] - Physical Exam General: Lethargic HEENT: Atraumatic, PERRLA, EOMI Neck: Supple, No Nodes Lungs: Normal air movement, Diminished Cardiovascular: Regular rate, Regular Rhythm Abdomen: Soft, Non Tender, Non-Distended, - - ostomy and peg in place Extremities: No edema Skin: - - mild erythema on R upper/inner thigh IV Site: Peripheral, without redness Musculoskeletal: No Tenderness to Palpation of Joints or Extremities - Assessment/Plan Antibiotics: [] Assessment/Plan: [] Active and Suspected Problems (Last Reviewed 08/03/19 @ 13:[address] Maury Waite MD) Sepsis (Acute) Cellulitis (Acute) septic shock - sudden onset. Some R thigh erythema. Question of blood in stool with ostomy in place. Low suspicion for covid, but agree with checking. Will order CT abd/pelvis and R thigh. Concern for possible baclofen withdrawal given pump in place. Cont vanc/zosyn. Given persistent hypotension for several hours, recommend ICU transfer. Will follow, thank you, d/w Dr. Gonzalez
[2019-09-06 16:03] LABS: Absolute Lymphocyte Count 1.19 X10^3/uL (0.83-4.51); Basophil# 0.01 X10^3/uL; Basophil% 0.3 % (0-1); Hematocrit 23.7 % (40-54); Hemoglobin 7.6 g/dL (13.0-16.5); Lymphocyte # 1.19 X10^3/ul (4.0); Lymphocyte % 30.4 % (19-41); Mean Corp Hgb Conc 32.1 g/dL (32-36); Mean Corpuscular Hgb 28.6 pg (27.0-32.0); Mean Corpuscular Volume 89.1 fL (80-94); Mean Platelet Vol. 12.1 fl (6.2-12.0); Monocyte# 0.66 X10^3/uL; Monocyte% 16.9 % (0-10); NRBC Flagged by Analyzer 0 % (0-5); Neutrophil # 2.04 X10^3/uL (2.7-7.7); Neutrophil % 52.1 % (47-70); POSITIVE COUNT YES; Platelet Count 58 K/mm3 (150-450); RBC Distribution Width SD 48.3 fl (35.1-43.9); Red Blood Count 2.66 M/mm3 (4.6-6.2); White Blood Count 3.9 K/mm3 (4.4-11.0)
[2019-09-06 16:10] LABS: Differential Indicated SCAN CRITERIA MET
[2019-09-06 16:29] LABS: Lactic Acid 0.6 mmol/L (0.4-1.9)
[2019-09-06 16:42] LABS: Anisocytosis 1+; Platelet Estimate MOD DEC (ADEQ); Red Cell Morphology N CHROM NORMAL (NORM C&C)
--- NOTE | 2019-09-06 17:06 | PN_ITS ---
Patient Problems: Active and Suspected Problems (Last Reviewed 08/03/19 @ 13:[address] Maury Waite MD) Sepsis (Acute) Cellulitis (Acute) Subjective: Patient was slit seen and examined today, earlier today he developed a high temperature of approximately 104, he became very tachycardic with his temperature, he was given Tylenol, IV fluids, and I changed his IV antibiotics to broaden his coverage. I talked with ID and they agreed to see him today. Patient's blood pressure was in the 150s systolic at this time, he was given se veral doses of IV Ativan due to agitation at the request of his mother. I had multiple discussions with his mother today in his room as well as one discussion with his father. Later on today, the patient's blood pressure decreased into the 70s, he was given additional fluid boluses but his blood pressure did not come up and it was felt that he might be in septic shock and he was admitted to the ICU and placed on pressor agents. Infectious diseases felt that the patient should undergo a CT of the abdomen and right leg, they also felt at the suggestion of pulmonary medicine that the patient should have a COVID test, at this time the COVID test is pending and I have asked that the patient's CT be delayed until the COVID test is known. - Physical Exam Vitals/I&O's: Vital Signs Temp Pulse Resp BP Pulse Ox 97.8 F 70 15 95/56 L 99 09/06/19 15:05 09/06/19 16:00 09/06/19 16:00 09/06/19 16:00 09/06/19 16:00 Oxygen Flow Rate (L/min) 3 Oxygen Delivery Method Mechanical Ventilator Weight: 76.6 kg Body Mass Index (BMI) 33.0 Finger Stick Blood Glucose 132 Intake and Output for Last 24 Hours 09/04/19 09/05/19 09/06/19 23:59 23:59 23:59 Intake Total 112 / 112 5912.09 / 5912.09 Output Total 520 / 520 Balance 112 / 112 5392.09 / 5392.09 General: Lethargic, - - Patient shows evidence of developmental delay which is chronic HEENT: Atraumatic, PERRLA, Normocephalic Oral: Moist Mucosa Neck: Supple, No JVD, Trachea Midline, - - Tracheostomy is present Lungs: Clear to auscultation, Normal air movement, No rhonchi, No wheeze Cardiovascular: Regular rate, Regular Rhythm, Normal S1, Normal S2, No murmurs Abdomen: Bowel Sounds Present, Soft, Non Tender, Non-Distended, - - Colostomy and PEG tube in place Extremities: No cyanosis, Capillary Refill Less than 3 Seconds, Edema - Neurolyse edema is noted over both lower extremities along with contractures of the legs, there is generalized redness noted of the right upper inner leg, muscle wasting which is severe is noted in both lower extremities Skin: No rashes, No breakdown Neurological: - - Patient is lethargic, he does not move his upper or lower extremities Psych/Mental Status: - - Patient is lethargic, he does not respond at this time to verbal stimuli Microbiology Past 72 Hours 09/06/19 01:00 Stool Stool Occult Blood (LONG) - Final Occult Blood Positive Laboratory Results 09/05/19 21:00: WBC 5.1, RBC 3.50 L, Hgb 10.0 L, Hct 30.8 L, MCV 88.0, MCH 28.6, MCHC 32.5, RDW Std Deviation 46.3 H, RDW Coeff of Emilee 14.6, Plt Count 64 L, MPV 11.8, Immature Gran % (Auto) 0.200, Neut % (Auto) 77.4 H, Lymph % (Auto) 13.8 L, [place] % (Auto) 8.0, Eos % (Auto) 0.6, Baso % (Auto) 0.0, Absolute Neuts (auto) 4.0, Absolute Lymphs (auto) 0.71 L, Nucleated RBC % 0, Platelet Estimate MOD DEC, RBC Morphology NORM C+C 09/05/19 21:00: Sodium 132 L, Potassium 4.2, Chloride 99, Carbon Dioxide 29.0, Anion Gap 4 L, BUN 13, Creatinine 0.32 L, Estim Creat Clear Calc 223.52, Est GFR (MDRD) Af Amer 404, Est GFR (MDRD) Non-Af 334, BUN/Creatinine Ratio 40.9 H, Glucose 79, Calcium 8.4 L, Total Bilirubin 0.30, AST 17, ALT 30, Alkaline Phosphatase 208 H, Total Protein 8.4 H, Albumin 3.1 L, Globulin 5.3 H, Albumin/Globulin Ratio 0.6 L 09/05/19 21:00: Lactic Acid 1.3 09/05/19 21:00: Magnesium 1.8 09/06/19 05:55: WBC 6.4, RBC 3.57 L, Hgb 10.2 L, Hct 31.4 L, MCV 88.0, MCH 28.6, MCHC 32.5, RDW Std Deviation 46.0 H, RDW Coeff of Emilee 14.5, Plt Count 73 L, MPV 11.8, Immature Gran % (Auto) 0.500, Neut % (Auto) 63.0, Lymph % (Auto) 25.4, [place] % (Auto) 10.6 H, Eos % (Auto) 0.3, Baso % (Auto) 0.2, Absolute Neuts (auto) 4.0, Absolute Lymphs (auto) 1.63, Nucleated RBC % 0 09/06/19 05:55: Sodium 135 L, Potassium 4.2, Chloride 104, Carbon Dioxide 26.0, Anion Gap 5, BUN 9, Creatinine 0.44 L, Estim Creat Clear Calc 162.56, Est GFR (MDRD) Af Amer 281, Est GFR (MDRD) Non-Af 232, BUN/Creatinine Ratio 20.6 H, Glucose 86, Calcium 8.8, Total Bilirubin 0.30, AST 20, ALT 29, Alkaline Phosphatase 214 H, Total Protein 8.7 H, Albumin 3.2, Globulin 5.5 H, Albumin/Globulin Ratio 0.6 L 09/06/19 12:13: POC Glucose 100 09/06/19 15:20: WBC Cancelled, Corrected WBC Cancelled, RBC Cancelled, Hgb Cancelled, Hct Cancelled, MCV Cancelled, MCH Cancelled, MCHC Cancelled, RDW Std Deviation Cancelled, RDW Coeff of Emilee Cancelled, Plt Count Cancelled, MPV Cancelled, Immature Gran % (Auto) Cancelled, Neut % (Auto) Cancelled, Lymph % (Auto) Cancelled, [place] % (Auto) Cancelled, Eos % (Auto) Cancelled, Baso % (Auto) Cancelled, Absolute Neuts (auto) Cancelled, Absolute Lymphs (auto) Cancelled, Total Counted Cancelled, Neutrophils % (Manual) Cancelled, Band Neutrophils % Cancelled, Lymphocytes % (Manual) Cancelled, Monocytes % (Manual) Cancelled, Eosinophils % (Manual) Cancelled, Basophils % (Manual) Cancelled, Metamyelocytes % Cancelled, Myelocytes % Cancelled, Promyelocytes % Cancelled, Blast Cells % Cancelled, Plasma Cell % (Manual) Cancelled, Other Cells % Cancelled, Nucleated RBC % Cancelled, Nucleated RBCs/100 WBC Cancelled, Differential Comment Cancelled, Diff Path Review Cancelled, Hypersegmented Neuts Cancelled, Atypical Lymphocytes Cancelled, Reactive Lymphocytes Cancelled, Smudge Cells Cancelled, Toxic Granulation Cancelled, Toxic Vacuolation Cancelled, Dohle Bodies Cancelled, Yvonne Rods Cancelled, Platelet Estimate Cancelled, Plt Morphology Comment Cancelled, RBC Morphology Cancelled, Polychromasia Cancelled, Hypochromasia Cancelled, Poikilocytosis Cancelled, Basophilic Stippling Cancelled, Anisocytosis Cancelled, Microcytosis Cancelled, Macrocytosis Cancelled, Spherocytes Cancelled, Sickle Cells Cancelled, Target Cells Cancelled, Tear Drop Cells Cancelled, Ovalocytes Cancelled, Stomatocytes Cancelled, Harris-Bena Bodies Cancelled, [place] Cells Cancelled, Bite Cells Cancelled, Crenated Cell Cancelled, Acanthocytes (Spur) Cancelled, Rouleaux Cancelled, Schistocytes Cancelled 09/06/19 15:20: Lactic Acid Cancelled 09/06/19 15:47: WBC 3.9 L, RBC 2.66 L, Hgb 7.6 L, Hct 23.7 L, MCV 89.1, MCH 28.6, MCHC 32.1, RDW Std Deviation 48.3 H, RDW Coeff of [place]ilee 15.0 H, Plt Count 58 L, MPV 12.1 H, Immature Gran % (Auto) 0.300, Neut % (Auto) 52.1, Lymph % (Auto) 30.4, [place] % (Auto) 16.9 H, Eos % (Auto) 0.0, Baso % (Auto) 0.3, Absolute Neuts (auto) 2.0, Absolute Lymphs (auto) 1.19, Nucleated RBC % 0, Platelet Estimate MOD DEC, RBC Morphology N CHROM, Anisocytosis 1+ 09/06/19 15:47: Lactic Acid 0.6 09/06/19 15:55: COVID-19 (YAYO) Pending Current Medications Acetaminophen (Tylenol) 650 mg RECTAL Q4H PRN PRN PRN Reason: Pain Score 1-10/Temp > 100.7 F Acetaminophen (Tylenol Liquid) 650 mg GT Q6H PRN PRN PRN Reason: Pain Score 1-10/Temp > 100.7 F Last Admin: 09/06/19 07:37 Dose: 650 mg Documented by: Albuterol Sulfate (Ventolin Aerosols) 2.5 mg INHALATION Q2H PRN PRN PRN Reason: Dyspnea, wheezing Ascorbic Acid (Vitamin C) 500 mg GT DAILY [facility] Last Admin: 09/06/19 09:22 Dose: 500 mg Documented by: Baclofen (Lioresal) 20 mg GT Q6 [facility] Last Admin: 09/06/19 12:25 Dose: 20 mg Documented by: Cholecalciferol (Vitamin D (25mcg)) 1,000 unit GT DAILY [facility] Last Admin: 09/06/19 09:22 Dose: 1,000 unit Documented by: Doxazosin Mesylate (Cardura) 2 mg GT DAILY [facility] Last Admin: 09/06/19 09:27 Dose: 2 mg Documented by: Enoxaparin Sodium (Lovenox) 70 mg SC Q12@0600,1800 [facility] Last Admin: 09/06/19 06:23 Dose: 70 mg Documented by: Ferrous Sulfate (Ferrous Sulfate Syrup) 300 mg GT DAILY [facility] Last Admin: 09/06/19 09:13 Dose: 300 mg Documented by: Furosemide (Lasix) 40 mg GT DAILY PRN PRN PRN Reason: edema Gabapentin (Gabapentin) 250 mg GT Q6 [facility] Last Admin: 09/06/19 14:35 Dose: Not Given Documented by: Glucagon () 1 mg IM .X1 PRN PRN Reason: Hypoglycemia Sodium Chloride () 1,000 mls @ 150 mls/hr IV .Q6H40M [facility] Last Admin: 09/06/19 16:15 Dose: Not Given Documented by: Vancomycin IV Pharmacy to Dose (1 ea/ Sodium Chloride) 500 mls @ 250 mls/hr IV PRN PRN; Protocol PRN Reason: Rx to Dose Sodium Chloride () 250 mls @ 15 mls/hr IV .[id number] PRN PRN Reason: Saline Flush Last Infusion: 09/06/19 16:00 Dose: 0 mls/hr Documented by: Sodium Chloride () 250 mls @ 15 mls/hr IV .[id number] PRN PRN Reason: Additional IVPB Infusion Enteral Nutritional Formula (Jevity 1.5) 1,000 mls @ 50 mls/hr GT .Q20H [facility] Last Admin: 09/06/19 01:07 Dose: 50 mls/hr Documented by: Vancomycin HCl (Vancomycin) 1,000 mg in 200 mls @ 200 mls/hr IV Q8H [facility] Last Infusion: 09/06/19 15:22 Dose: Infused Documented by: Piperacillin Sod/Tazobactam (Sod 3.375 gm/ Sodium Chloride) 50 mls @ 12.5 mls/hr IV Q8 [facility] Last Admin: 09/06/19 15:20 Dose: 12.5 mls/hr Documented by: Norepinephrine Bitartrate 8 mg (/ Sodium Chloride) 250 mls @ 9.375 mls/hr CONT INF .[id number] [facility]; Protocol Last Titration: 09/06/19 16:00 Dose: 10 mcg/min, 18.8 mls/hr Documented by: Lactobacillus Acidophilus (Acidophilus) 1 tablet GT DAILY [facility] Last Admin: 09/06/19 09:22 Dose: 1 tablet Documented by: Lansoprazole (Lansoprazole) 15 mg GT BID [facility] Last Admin: 09/06/19 09:23 Dose: 15 mg Documented by: Lorazepam (Ativan) 1 mg GT Q8H PRN PRN PRN Reason: AGITATION Last Admin: 09/06/19 06:22 Dose: 1 mg Documented by: Metoclopramide HCl (Reglan) 10 mg GT TID [facility] Last Admin: 09/06/19 13:06 Dose: 10 mg Documented by: Ondansetron HCl (Zofran Odt) 4 mg GT DAILY PRN PRN PRN Reason: NAUSEA Ondansetron HCl (Zofran) 4 mg IV Q8H PRN PRN PRN Reason: NAUSEA/VOMITING Phenobarbital (Phenobarbital) 60 mg GT BID [facility] Last Admin: 09/06/19 09:28 Dose: 60 mg Documented by: Polyethylene Glycol (Miralax) 17 gm GT TID [facility] Last Admin: 09/06/19 13:17 Dose: 17 gm Documented by: Potassium Chloride (Potassium Chl Soln) 15 meq GT DAILY PRN PRN PRN Reason: WITH LASIX Prochlorperazine Edisylate (Compazine Iv) 5 mg IV Q4H PRN PRN PRN Reason: Breakthrough Nausea/Vomiting Simethicone (Mylicon) 120 mg GT TIDPC [facility] Last Admin: 09/06/19 12:26 Dose: 120 mg Documented by: Sodium Chloride () 10 - 40 ml IV UD PRN PRN Reason: SALINE FLUSH Last Admin: 09/06/19 09:58 Dose: 10 ml Documented by: Medical Necessity - Tobacco Use Smoking Status: Never smoker Assessment/Plan All Active Problems (Last Reviewed 08/03/19 @ 13:[address] Maury Watie MD) Sepsis (Acute) Cellulitis (Acute) SIRS (systemic inflammatory response syndrome) (Resolved) Bradycardia (Resolved) #1 septic shock-etiology unclear at this point, patient was admitted for sepsis and cellulitis of the right leg, this could be the source of the septic shock. Again patient was transferred into the ICU and will be seen by critical care and infectious diseases ongoing, his antibiotics for now remain as Zosyn and vancomycin. Further tests are pending per ID, COVID test is pending at this time. Patient remains on pressor agents #2 chronic respiratory failure-patient has a trach in place and is on ventilatory support chronically when sleeping. #3 cellulitis of the right upper leg #4 thrombocytopenia #5 decreased hemoglobin-patient's hemoglobin was low this afternoon, I have ordered another hemoglobin at 9:00 tonight, this drop in hemoglobin may be delusional or it may be secondary to GI bleeding. #6 recent PE-I have elected to keep the patient on Lovenox at this time due to his recent PE #7 cerebral palsy/developmental delay/mental retardation #8 Hemoccult positive stool-significance unknown at this time, patient is on a PPI, recheck H&H #9 decreased hemoglobin-possibly secondary to delusional reasons, recheck H&H tonight He remains a full code per family request Inpatient E&M: 38007 Subs Hosp L2
--- NOTE | 2019-09-06 19:23 | CPS ---
Patient on home vent, both parents at bedside. This RT talked to parents and let them know if they need anything respiratory cuadra at all to feel free to reach out to me. They both agreed.
[2019-09-06 22:11] LABS: Hematocrit 26.1 % (40-54); Hemoglobin 8.3 g/dL (13.0-16.5)
[2019-09-06 23:21] LABS: Vancomycin, Trough Level 35.5 ug/mL (5.0-15.0)
[2019-09-07] VITALS (21 sets, daily range): BP systolic 90–150; BP diastolic 57–93; PULSE 65–105; RESP 13–24; TEMP 36.4–37.2; O2SAT 94–100
--- NOTE | 2019-09-07 00:18 | PCM.RX.CS ---
Consult Pharmacy has been consulted to manage selected antiobiotic: Vancomycin Type of Consult: Follow-up Suspected Infection: Sepsis Labs: Sodium 135 mmol/L (136-145) L 09/06/19 05:55 Potassium 4.2 mmol/L (3.5-5.1) 09/06/19 05:55 Chloride 104 mmol/L (98-107) 09/06/19 05:55 Carbon Dioxide 26.0 mmol/L (21.0-32.0) 09/06/19 05:55 Anion Gap 5 (5-15) 09/06/19 05:55 BUN 9 mg/dL (7-18) 09/06/19 05:55 Creatinine 0.44 mg/dL (0.70-1.30) L 09/06/19 05:55 Est GFR (MDRD) Af Amer 281 mL/min (>60) 09/06/19 05:55 Est GFR (MDRD) Non-Af 232 mL/min (>60) 09/06/19 05:55 BUN/Creatinine Ratio 20.6 RATIO (10-20) H 09/06/19 05:55 Glucose 86 mg/dL (74-106) 09/06/19 05:55 Vancomycin Trough 35.5 ug/mL (5.0-15.0) H 09/06/19 22:37 Microbiology: Microbiology 09/06/19 01:00 Stool Stool Occult Blood (LONG) - Final Occult Blood Positive Goal Trough: 15-20 mcg/mL Pharmacy Plan for Drug Dosing: Pharmacy Service will continue to monitor and adjust dosing as required. TROUGH 35.5 HOLD DOSE AND DRAW RANDOM LEVEL 09/06 AND REDOSE Labs to be done on [date and time ordered]: 09/06
[2019-09-07] MEDS: Baclofen 10 MG Tablet 20 MG GT ×5 (01:08→23:12)
[2019-09-07] MEDS: GABAPENTIN 250 MG/5 ML SOLUTION GT ×5 (01:08→23:10)
[2019-09-07] MEDS: 0.9% Normal Saline 1,000 ML 150 ML IV ×4 (04:10→23:53)
[2019-09-07 04:44] LABS: Absolute Lymphocyte Count 1.15 X10^3/uL (0.83-4.51); Absolute Neutrophil Count 2.4 X10^3/uL (2.0-7.7); Eosinophil# 0.03 X10^3/uL; Eosinophils% 0.7 % (0-5); Hematocrit 25.1 % (40-54); Lymphocyte # 1.15 X10^3/ul (4.0); Lymphocyte % 26.8 % (19-41); Mean Corp Hgb Conc 31.9 g/dL (32-36); Mean Corpuscular Hgb 28.9 pg (27.0-32.0); Mean Corpuscular Volume 90.6 fL (80-94); Mean Platelet Vol. 11.6 fl (6.2-12.0); Monocyte# 0.68 X10^3/uL; Monocyte% 15.9 % (0-10); NRBC Flagged by Analyzer 0 % (0-5); Neutrophil % 55.9 % (47-70); POSITIVE COUNT YES; Platelet Count 71 K/mm3 (150-450); RBC Distribution Width CV 15.3 % (11.6-14.6); RBC Distribution Width SD 50.4 fl (35.1-43.9); Red Blood Count 2.77 M/mm3 (4.6-6.2); White Blood Count 4.3 K/mm3 (4.4-11.0)
[2019-09-07 04:53] LABS: BUN 10 mg/dL (7-18); Creatinine, Serum 0.45 mg/dL (0.70-1.30); EST Glomerular Filtration Rate 224 mL/min (>60); Estimated Creatinine Clearance 158.95 ml/min; Glucose 79 mg/dL (74-106)
[2019-09-07 04:54] LABS: Anion Gap 4 (5-15); BUN/Creat Ratio 22.3 RATIO (10-20); Calcium,Total 7.5 mg/dL (8.5-10.1); Chloride 114 mmol/L (98-107); Est Glom Filt Rate - Afr Amer 272 mL/min (>60); Potassium 3.3 mmol/L (3.5-5.1); Sodium Level 143 mmol/L (136-145)
[2019-09-07] MEDS: Polyethylene Glycol 3350 17 GM PACKET GT ×3 (05:45→22:50)
[2019-09-07] MEDS: Metoclopramide 10 MG Tablet GT ×3 (05:47→22:50)
[2019-09-07] MEDS: Jevity 1.5 1,000 ML 50 ML GT (05:56)
--- NOTE | 2019-09-07 06:21 | CON.PCM_ITS ---
Reason for Consult Date of Consultation: 09/07/19 Reason for Consultation: Septic shock History of Present Illness: The patient is a 39-year-old male, with a history as outlined below, who presented to the emergency department on September 04 with fever and redness/swelling of the right thigh. The patient has a history of cerebral palsy, spastic quadriplegia and chronic respiratory failure requiring home ventilator utilization. The patient is followed by Dr. Monsalve in the outpatient pulmonary clinic. He is on SIMV mode on his noninvasive ventilator at baseline throughout the night. During the day, he typically requires 2 to 3 L/min of supplemental oxygen. On presentation to the emergency department, the patient was initially noted to be afebrile and hemodynamically stable. Laboratory evaluation revealed a normal white blood cell count. The patient was anemic with a hemoglobin of 10.0. He was also thrombocytopenic with a platelet count of 64,000. Chemistry profile was notable for a sodium of 132 and creatinine of 0.32. Plain film chest x-ray revealed questionable bilateral pulmonary edema. The patient was initially placed on antimicrobials and admitted to the progressive care unit for further management. Over the course of the day on September 05 the patient became febrile with a T-max of one-point documented to be 105.3 ?F rectally. The patient's hemodynamic status became unstable, despite attempts at volume resuscitation. The patient eventually required transfer to the medical intensive care unit, where vasopressor support had to be initiated. Nevertheless, the patient was able to be weaned off of Levophed completely as of 0300 hrs. this morning. The patient is currently documented to be overall net +5.7 L for the hospital admission. Past Medical History Past Medical History (Chronic Problems): Chronic Problems (Last Reviewed 08/03/19 @ 13:[address] Maury Waite MD) Thrombocytopenia (Chronic) Pulmonary embolism on left (Chronic 06/14/19) Nonrheumatic mitral valve prolapse (Chronic) Iron deficiency anemia (Chronic) Chronic respiratory failure (Chronic) Cerebral palsy (Chronic) Quadriplegic Severe mental retardation Chronic constipation PEG tube Edema (Chronic) Medical History: Medical History (Last Reviewed 08/03/19 @ 13:[address] Maury Waite MD) Thrombocytopenia (Chronic) D69.6 SIRS (systemic inflammatory response syndrome) (Resolved) R65.10 Pulmonary embolism on left (Chronic) Onset Date: 06/14/19 I26.99 Nonrheumatic mitral valve prolapse (Chronic) I34.1 Iron deficiency anemia (Chronic) D50.9 Chronic respiratory failure (Chronic) J96.10 Cerebral palsy (Chronic) G80.9 Quadriplegic Severe mental retardation Chronic constipation PEG tube Edema (Chronic) R60.9 Debility R53.81 History of seizure disorder Z86.69 Obesity E66.9 Redundant colon Q43.[address] Z93.0 Allergies cisapride monohydrate [From Propulsid] Allergy (Verified 08/19/19 18:46) Rash codeine Adverse Reaction (Verified 08/19/19 18:46) hallucinations metronidazole [From Flagyl] Adverse Reaction (Verified 08/19/19 18:46) Rash morphine Adverse Reaction (Verified 08/19/19 18:46) Hallucinations dust Allergy (Uncoded 08/19/19 18:46) Other Home Medications: Ambulatory Orders Medication Instructions Recorded Simethicone 40MG/0.6ML [Mylicon] 40 mg GT 4X/DAY 11/09/13 Pantoprazole Sodium [Protonix] 20 ml GT BID 08/09/14 Phenobarbital 60 mg GT BID 02/19/17 Cetirizine HCl [Zyrtec] 10 ml GT DAILY 02/04/18 Lactobacillus Acidophilus 1 cap GT DAILY 02/04/18 [Acidophilus] metoclopramide HCl 5 mg/5 mL oral 10 mg GT TID ml 09/16/18 solution Lorazepam [Ativan] 1 mg GT Q8 PRN 10/08/18 Cholecalciferol (Vitamin D3) 5 ml GT DAILY 12/25/18 [Vitamin D3] Cough Assist 1 dose .ROUTE .MEDSUPPLY 12/25/18 Ferrous Sulfate 5 ml GT DAILY 12/25/18 oxygen concentrator 1 dose .ROUTE .MEDSUPPLY 12/25/18 Baclofen [Ozobax] 20 mg GT Q6H 05/09/19 Lactose-Reduced Food/Fiber [Jevity 50 ml GT DAILY 05/09/19 1.2 South Liquid] Ondansetron HCl [Zofran] 5 ml PO DAILY PRN 05/09/19 Polyethylene Glycol 3350 [Miralax] 17 gm GT TID 05/09/19 Doxazosin Mesylate [Cardura] 2 mg GT DAILY #30 tab 07/11/19 enoxaparin 80 mg/0.8 mL 70 mg SUBCUT Q12@0600,1800 08/03/19 subcutaneous syringe gabapentin 250 mg/5 mL (5 mL) oral 250 mg PO Q6H ml 08/03/19 solution Ascorbic Acid [Vitamin C] 500 mg GT DAILY 08/04/19 Surgical History: Surgical History (Last Reviewed 08/03/19 @ 13:[address] Maury Waite MD) Colostomy in place Z93.3 Heel cord lengthening bilaterally History of colostomy History of gastrostomy tube placement History of open reduction and internal fixation (ORIF) procedure Z98.890 left hip History of soft tissue release Bilateral hips and knees Status post insertion of intrathecal baclofen pump Z96.89 status post removal in March 2018. Surgical History: - - Baclofen pump, colostomy, G-tube, tracheostomy Psychiatric History: No pertinent psych hx Smoking Status: Never smoker - *Family History Maternal Family History: Family History (Last Reviewed 08/03/19 @ 13:[address] Maury Waite MD) Mother Hypertension Hepatitis C Father Hypertension Atrial fibrillation CAD (coronary artery disease) History Items: - - Mother with history of hypertension hepatitis C. Paternal Family History: Family History (Last Reviewed 08/03/19 @ 13:[address] Maury Waite MD) Mother Hypertension Hepatitis C Father Hypertension Atrial fibrillation CAD (coronary artery disease) History Items: - - Father with history of hypertension, coronary disease and atrial fibrillation. Review of Systems Unable to obtain accurate/complete ROS d/t: Due to baseline neurological status Patient Problems: Active and Suspected Problems (Last Reviewed 08/03/19 @ 13:[address] Maury Waite MD) Sepsis (Acute) Cellulitis (Acute) Objective: The patient's most recent lab work, culture data and imaging studies have all been personally reviewed. Blood cultures are pending. Stool for occult blood was positive. - Physical Exam Vitals/I&O's: Vital Signs Temp Pulse Resp BP Pulse Ox 97.6 F L 94 17 109/74 100 09/07/19 04:00 09/07/19 05:00 09/07/19 05:00 09/07/19 05:00 09/07/19 05:00 Oxygen Flow Rate (L/min) 3 Oxygen Delivery Method Mechanical Ventilator Weight: 175 lb 4.28 oz Body Mass Index (BMI) 33.0 Finger Stick Blood Glucose 132 Intake and Output for Last 24 Hours 09/05/19 09/06/19 09/07/19 23:59 23:59 23:59 Intake Total 112 / 112 8190.76 / 8611.11 2269.55 / 2269.55 Output Total 3220 / 3820 1900 / 1900 Balance 112 / 112 4970.76 / 4791.11 369.55 / 369.55 General: Alert, No apparent distress HEENT: Atraumatic, Normocephalic Oral: Moist Mucosa Neck: Supple, No Nodes, Trachea Midline Lungs: No rhonchi, No wheeze, No rales, Diminished Cardiovascular: Normal S1, Normal S2, Tachycardic Abdomen: Bowel Sounds Present, Soft, Non Tender, - - + Ostomy Extremities: No clubbing, No cyanosis, - - Contracted extremities Skin: No breakdown, - - + Erythema to right lower extremity Musculoskeletal: No Muscle Wasting Lymphatic: No Cervical, Supraclavicular, or Inguinal Adenopathy Neurological: - - Baseline neurological status with spastic quadriplegia Psych/Mental Status: Flat Affect Labs (Last 48 Hours) 09/05/19 09/05/19 09/05/19 21:00 21:00 21:00 WBC 5.1 Corrected WBC RBC 3.50 L Hgb 10.0 L Hct 30.8 L MCV 88.0 MCH 28.6 MCHC 32.5 RDW Std Deviation 46.3 H RDW Coeff of Emilee 14.6 Plt Count 64 L MPV 11.8 Immature Gran % (Auto) 0.200 Neut % (Auto) 77.4 H Lymph % (Auto) 13.8 L [place] % (Auto) 8.0 Eos % (Auto) 0.6 Baso % (Auto) 0.0 Absolute Neuts (auto) 4.0 Absolute Lymphs (auto) 0.71 L Total Counted Neutrophils % (Manual) Band Neutrophils % Lymphocytes % (Manual) Monocytes % (Manual) Eosinophils % (Manual) Basophils % (Manual) Metamyelocytes % Myelocytes % Promyelocytes % Blast Cells % Plasma Cell % (Manual) Other Cells % Nucleated RBC % 0 Nucleated RBCs/100 WBC Differential Comment Diff Path Review Hypersegmented Neuts Atypical Lymphocytes Reactive Lymphocytes Smudge Cells Toxic Granulation Toxic Vacuolation Dohle Bodies Yvonne Rods Platelet Estimate MOD DEC Plt Morphology Comment RBC Morphology NORM C+C Polychromasia Hypochromasia Poikilocytosis Basophilic Stippling Anisocytosis Microcytosis Macrocytosis Spherocytes Sickle Cells Target Cells Tear Drop Cells Ovalocytes Stomatocytes Harris-Rheems Bodies [place] Cells Bite Cells Crenated Cell Acanthocytes (Spur) Rouleaux Schistocytes Sodium 132 L Potassium 4.2 Chloride 99 Carbon Dioxide 29.0 Anion Gap 4 L BUN 13 Creatinine 0.32 L Estim Creat Clear Calc 223.52 Est GFR (MDRD) Af Amer 404 Est GFR (MDRD) Non-Af 334 BUN/Creatinine Ratio 40.9 H Glucose 79 Lactic Acid 1.3 Calcium 8.4 L Magnesium Total Bilirubin 0.30 AST 17 ALT 30 Alkaline Phosphatase 208 H Total Protein 8.4 H Albumin 3.1 L Globulin 5.3 H Albumin/Globulin Ratio 0.6 L Vancomycin Trough COVID-19 (YAYO) POC Glucose 09/05/19 09/06/19 09/06/19 21:00 05:55 05:55 WBC 6.4 Corrected WBC RBC 3.57 L Hgb 10.2 L Hct 31.4 L MCV 88.0 MCH 28.6 MCHC 32.5 RDW Std Deviation 46.0 H RDW Coeff of Emilee 14.5 Plt Count 73 L MPV 11.8 Immature Gran % (Auto) 0.500 Neut % (Auto) 63.0 Lymph % (Auto) 25.4 [place] % (Auto) 10.6 H Eos % (Auto) 0.3 Baso % (Auto) 0.2 Absolute Neuts (auto) 4.0 Absolute Lymphs (auto) 1.63 Total Counted Neutrophils % (Manual) Band Neutrophils % Lymphocytes % (Manual) Monocytes % (Manual) Eosinophils % (Manual) Basophils % (Manual) Metamyelocytes % Myelocytes % Promyelocytes % Blast Cells % Plasma Cell % (Manual) Other Cells % Nucleated RBC % 0 Nucleated RBCs/100 WBC Differential Comment Diff Path Review Hypersegmented Neuts Atypical Lymphocytes Reactive Lymphocytes Smudge Cells Toxic Granulation Toxic Vacuolation Dohle Bodies Yvonne Rods Platelet Estimate Plt Morphology Comment RBC Morphology Polychromasia Hypochromasia Poikilocytosis Basophilic Stippling Anisocytosis Microcytosis Macrocytosis Spherocytes Sickle Cells Target Cells Tear Drop Cells Ovalocytes Stomatocytes Harris-Rheems Bodies [place] Cells Bite Cells Crenated Cell Acanthocytes (Spur) Rouleaux Schistocytes Sodium 135 L Potassium 4.2 Chloride 104 Carbon Dioxide 26.0 Anion Gap 5 BUN 9 Creatinine 0.44 L Estim Creat Clear Calc 162.56 Est GFR (MDRD) Af Amer 281 Est GFR (MDRD) Non-Af 232 BUN/Creatinine Ratio 20.6 H Glucose 86 Lactic Acid Calcium 8.8 Magnesium 1.8 Total Bilirubin 0.30 AST 20 ALT 29 Alkaline Phosphatase 214 H Total Protein 8.7 H Albumin 3.2 Globulin 5.5 H Albumin/Globulin Ratio 0.6 L Vancomycin Trough COVID-19 (YAYO) POC Glucose 09/06/19 09/06/19 09/06/19 12:13 15:20 15:20 WBC Cancelled Corrected WBC Cancelled RBC Cancelled Hgb Cancelled Hct Cancelled MCV Cancelled MCH Cancelled MCHC Cancelled RDW Std Deviation Cancelled RDW Coeff of Emilee Cancelled Plt Count Cancelled MPV Cancelled Immature Gran % (Auto) Cancelled Neut % (Auto) Cancelled Lymph % (Auto) Cancelled [place] % (Auto) Cancelled Eos % (Auto) Cancelled Baso % (Auto) Cancelled Absolute Neuts (auto) Cancelled Absolute Lymphs (auto) Cancelled Total Counted Cancelled Neutrophils % (Manual) Cancelled Band Neutrophils % Cancelled Lymphocytes % (Manual) Cancelled Monocytes % (Manual) Cancelled Eosinophils % (Manual) Cancelled Basophils % (Manual) Cancelled Metamyelocytes % Cancelled Myelocytes % Cancelled Promyelocytes % Cancelled Blast Cells % Cancelled Plasma Cell % (Manual) Cancelled Other Cells % Cancelled Nucleated RBC % Cancelled Nucleated RBCs/100 WBC Cancelled Differential Comment Cancelled Diff Path Review Cancelled Hypersegmented Neuts Cancelled Atypical Lymphocytes Cancelled Reactive Lymphocytes Cancelled Smudge Cells Cancelled Toxic Granulation Cancelled Toxic Vacuolation Cancelled Dohle Bodies Cancelled Yvonne Rods Cancelled Platelet Estimate Cancelled Plt Morphology Comment Cancelled RBC Morphology Cancelled Polychromasia Cancelled Hypochromasia Cancelled Poikilocytosis Cancelled Basophilic Stippling Cancelled Anisocytosis Cancelled Microcytosis Cancelled Macrocytosis Cancelled Spherocytes Cancelled Sickle Cells Cancelled Target Cells Cancelled Tear Drop Cells Cancelled Ovalocytes Cancelled Stomatocytes Cancelled Harris-Rheems Bodies Cancelled Raman Cells Cancelled Bite Cells Cancelled Crenated Cell Cancelled Acanthocytes (Spur) Cancelled Rouleaux Cancelled Schistocytes Cancelled Sodium Potassium Chloride Carbon Dioxide Anion Gap BUN Creatinine Estim Creat Clear Calc Est GFR (MDRD) Af Amer Est GFR (MDRD) Non-Af BUN/Creatinine Ratio Glucose Lactic Acid Cancelled Calcium Magnesium Total Bilirubin AST ALT Alkaline Phosphatase Total Protein Albumin Globulin Albumin/Globulin Ratio Vancomycin Trough COVID-19 (YAYO) POC Glucose 100 09/06/19 09/06/19 09/06/19 15:47 15:47 15:55 WBC 3.9 L Corrected WBC RBC 2.66 L Hgb 7.6 L Hct 23.7 L MCV 89.1 MCH 28.6 MCHC 32.1 RDW Std Deviation 48.3 H RDW Coeff of Emilee 15.0 H Plt Count 58 L MPV 12.1 H Immature Gran % (Auto) 0.300 Neut % (Auto) 52.1 Lymph % (Auto) 30.4 [place] % (Auto) 16.9 H Eos % (Auto) 0.0 Baso % (Auto) 0.3 Absolute Neuts (auto) 2.0 Absolute Lymphs (auto) 1.19 Total Counted Neutrophils % (Manual) Band Neutrophils % Lymphocytes % (Manual) Monocytes % (Manual) Eosinophils % (Manual) Basophils % (Manual) Metamyelocytes % Myelocytes % Promyelocytes % Blast Cells % Plasma Cell % (Manual) Other Cells % Nucleated RBC % 0 Nucleated RBCs/100 WBC Differential Comment Diff Path Review Hypersegmented Neuts Atypical Lymphocytes Reactive Lymphocytes Smudge Cells Toxic Granulation Toxic Vacuolation Dohle Bodies Yvonne Rods Platelet Estimate MOD DEC Plt Morphology Comment RBC Morphology N CHROM Polychromasia Hypochromasia Poikilocytosis Basophilic Stippling Anisocytosis 1+ Microcytosis Macrocytosis Spherocytes Sickle Cells Target Cells Tear Drop Cells Ovalocytes Stomatocytes Harris-Rheems Bodies [place] Cells Bite Cells Crenated Cell Acanthocytes (Spur) Rouleaux Schistocytes Sodium Potassium Chloride Carbon Dioxide Anion Gap BUN Creatinine Estim Creat Clear Calc Est GFR (MDRD) Af Amer Est GFR (MDRD) Non-Af BUN/Creatinine Ratio Glucose Lactic Acid 0.6 Calcium Magnesium Total Bilirubin AST ALT Alkaline Phosphatase Total Protein Albumin Globulin Albumin/Globulin Ratio Vancomycin Trough COVID-19 (YAYO) Not Detected POC Glucose 09/06/19 09/06/19 09/07/19 21:50 22:37 04:20 WBC 4.3 L Corrected WBC RBC 2.77 L Hgb 8.3 L 8.0 L Hct 26.1 L 25.1 L MCV 90.6 MCH 28.9 MCHC 31.9 L RDW Std Deviation 50.4 H RDW Coeff of Emilee 15.3 H Plt Count 71 L MPV 11.6 Immature Gran % (Auto) 0.700 Neut % (Auto) 55.9 Lymph % (Auto) 26.8 [place] % (Auto) 15.9 H Eos % (Auto) 0.7 Baso % (Auto) 0.0 Absolute Neuts (auto) 2.4 Absolute Lymphs (auto) 1.15 Total Counted Neutrophils % (Manual) Band Neutrophils % Lymphocytes % (Manual) Monocytes % (Manual) Eosinophils % (Manual) Basophils % (Manual) Metamyelocytes % Myelocytes % Promyelocytes % Blast Cells % Plasma Cell % (Manual) Other Cells % Nucleated RBC % 0 Nucleated RBCs/100 WBC Differential Comment Diff Path Review Hypersegmented Neuts Atypical Lymphocytes Reactive Lymphocytes Smudge Cells Toxic Granulation Toxic Vacuolation Dohle Bodies Yvonne Rods Platelet Estimate Plt Morphology Comment RBC Morphology Polychromasia Hypochromasia Poikilocytosis Basophilic Stippling Anisocytosis Microcytosis Macrocytosis Spherocytes Sickle Cells Target Cells Tear Drop Cells Ovalocytes Stomatocytes Harris-Rheems Bodies Raman Cells Bite Cells Crenated Cell Acanthocytes (Spur) Rouleaux Schistocytes Sodium Potassium Chloride Carbon Dioxide Anion Gap BUN Creatinine Estim Creat Clear Calc Est GFR (MDRD) Af Amer Est GFR (MDRD) Non-Af BUN/Creatinine Ratio Glucose Lactic Acid Calcium Magnesium Total Bilirubin AST ALT Alkaline Phosphatase Total Protein Albumin Globulin Albumin/Globulin Ratio Vancomycin Trough 35.5 H COVID-19 (YAYO) POC Glucose 09/07/19 04:20 WBC Corrected WBC RBC Hgb Hct MCV MCH MCHC RDW Std Deviation RDW Coeff of Emilee Plt Count MPV Immature Gran % (Auto) Neut % (Auto) Lymph % (Auto) [place] % (Auto) Eos % (Auto) Baso % (Auto) Absolute Neuts (auto) Absolute Lymphs (auto) Total Counted Neutrophils % (Manual) Band Neutrophils % Lymphocytes % (Manual) Monocytes % (Manual) Eosinophils % (Manual) Basophils % (Manual) Metamyelocytes % Myelocytes % Promyelocytes % Blast Cells % Plasma Cell % (Manual) Other Cells % Nucleated RBC % Nucleated RBCs/100 WBC Differential Comment Diff Path Review Hypersegmented Neuts Atypical Lymphocytes Reactive Lymphocytes Smudge Cells Toxic Granulation Toxic Vacuolation Dohle Bodies Yvonne Rods Platelet Estimate Plt Morphology Comment RBC Morphology Polychromasia Hypochromasia Poikilocytosis Basophilic Stippling Anisocytosis Microcytosis Macrocytosis Spherocytes Sickle Cells Target Cells Tear Drop Cells Ovalocytes Stomatocytes Harris-Rheems Bodies [place] Cells Bite Cells Crenated Cell Acanthocytes (Spur) Rouleaux Schistocytes Sodium 143 Potassium 3.3 L Chloride 114 H Carbon Dioxide 25.0 Anion Gap 4 L BUN 10 Creatinine 0.45 L Estim Creat Clear Calc 158.95 Est GFR (MDRD) Af Amer 272 Est GFR (MDRD) Non-Af 224 BUN/Creatinine Ratio 22.3 H Glucose 79 Lactic Acid Calcium 7.5 L Magnesium Total Bilirubin AST ALT Alkaline Phosphatase Total Protein Albumin Globulin Albumin/Globulin Ratio Vancomycin Trough COVID-19 (YAYO) POC Glucose Microbiology 09/06/19 01:00 Stool Stool Occult Blood (LONG) - Final Occult Blood Positive Clinical Impression(s) from Imaging Studies Chest X-Ray 09/05/19 22:00 IMPRESSION: Mild bilateral pulmonary edema Electronically Signed: Allan Kent MD at 22:28 EDT , Service support , Abdomen/Pelvis CT 09/06/19 15:10 IMPRESSION: * No demonstrated free air or free fluid or acute bowel abnormality. * Gallstone. * Mild bibasilar atelectasis Electronically Signed: Allan Kent MD at 21:22 EDT , Service support , Lower Extremity CT 09/06/19 15:12 IMPRESSION: 1. Mild subcutaneous edema. 2. No evidence of a fracture. 3. No evidence of osteomyelitis or abscess. Electronically Signed: Allan Kent MD at 21:28 EDT , Service support , Current Medications Acetaminophen (Tylenol) 650 mg RECTAL Q4H PRN PRN PRN Reason: Pain Score 1-10/Temp > 100.7 F Acetaminophen (Tylenol Liquid) 650 mg GT Q6H PRN PRN PRN Reason: Pain Score 1-10/Temp > 100.7 F Last Admin: 09/06/19 07:37 Dose: 650 mg Documented by: Albuterol Sulfate (Ventolin Aerosols) 2.5 mg INHALATION Q2H PRN PRN PRN Reason: Dyspnea, wheezing Ascorbic Acid (Vitamin C) 500 mg GT DAILY [facility] Last Admin: 09/06/19 09:22 Dose: 500 mg Documented by: Baclofen (Lioresal) 20 mg GT Q6 [facility] Last Admin: 09/07/19 05:45 Dose: 20 mg Documented by: Cholecalciferol (Vitamin D (25mcg)) 1,000 unit GT DAILY [facility] Last Admin: 09/06/19 09:22 Dose: 1,000 unit Documented by: Doxazosin Mesylate (Cardura) 2 mg GT DAILY [facility] Last Admin: 09/06/19 09:27 Dose: 2 mg Documented by: Enoxaparin Sodium (Lovenox) 70 mg SC Q12@0600,1800 [facility] Last Admin: 09/06/19 18:46 Dose: 70 mg Documented by: Ferrous Sulfate (Ferrous Sulfate Syrup) 300 mg GT DAILY [facility] Last Admin: 09/06/19 09:13 Dose: 300 mg Documented by: Furosemide (Lasix) 40 mg GT DAILY PRN PRN PRN Reason: edema Gabapentin (Gabapentin) 250 mg GT Q6 [facility] Last Admin: 09/07/19 05:45 Dose: 250 mg Documented by: Glucagon () 1 mg IM .X1 PRN PRN Reason: Hypoglycemia Sodium Chloride () 1,000 mls @ 150 mls/hr IV .Q6H40M [facility] Last Admin: 09/07/19 04:10 Dose: 150 mls/hr Documented by: Vancomycin IV Pharmacy to Dose (1 ea/ Sodium Chloride) 500 mls @ 250 mls/hr IV PRN PRN; Protocol PRN Reason: Rx to Dose Sodium Chloride () 250 mls @ 15 mls/hr IV .[id number] PRN PRN Reason: Saline Flush Last Infusion: 09/07/19 03:43 Dose: 15 mls/hr Documented by: Sodium Chloride () 250 mls @ 15 mls/hr IV .[id number] PRN PRN Reason: Additional IVPB Infusion Enteral Nutritional Formula (Jevity 1.5) 1,000 mls @ 50 mls/hr GT .Q20H [facility] Last Admin: 09/07/19 05:56 Dose: 50 mls/hr Documented by: Piperacillin Sod/Tazobactam (Sod 3.375 gm/ Sodium Chloride) 50 mls @ 12.5 mls/hr IV Q8 [facility] Last Admin: 09/07/19 05:45 Dose: 12.5 mls/hr Documented by: Norepinephrine Bitartrate 8 mg (/ Sodium Chloride) 250 mls @ 9.375 mls/hr CONT INF .[id number] [facility]; Protocol Last Titration: 09/07/19 05:00 Dose: 0 mcg/min, 0 mls/hr Documented by: Lactobacillus Acidophilus (Acidophilus) 1 tablet GT DAILY [facility] Last Admin: 09/06/19 09:22 Dose: 1 tablet Documented by: Lansoprazole (Lansoprazole) 15 mg GT BID [facility] Last Admin: 09/06/19 22:07 Dose: 15 mg Documented by: Lorazepam (Ativan) 1 mg GT Q8H PRN PRN PRN Reason: AGITATION Last Admin: 09/06/19 06:22 Dose: 1 mg Documented by: Metoclopramide HCl (Reglan) 10 mg GT TID [facility] Last Admin: 09/07/19 05:47 Dose: 10 mg Documented by: Ondansetron HCl (Zofran Odt) 4 mg GT DAILY PRN PRN PRN Reason: NAUSEA Ondansetron HCl (Zofran) 4 mg IV Q8H PRN PRN PRN Reason: NAUSEA/VOMITING Phenobarbital (Phenobarbital) 60 mg GT BID [facility] Last Admin: 09/06/19 22:01 Dose: 60 mg Documented by: Polyethylene Glycol (Miralax) 17 gm GT TID [facility] Last Admin: 09/07/19 05:45 Dose: 17 gm Documented by: Potassium Chloride (Potassium Chl Soln) 15 meq GT DAILY PRN PRN PRN Reason: WITH LASIX Prochlorperazine Edisylate (Compazine Iv) 5 mg IV Q4H PRN PRN PRN Reason: Breakthrough Nausea/Vomiting Simethicone (Mylicon) 120 mg GT TIDPC [facility] Last Admin: 09/06/19 17:54 Dose: 120 mg Documented by: Sodium Chloride () 10 - 40 ml IV UD PRN PRN Reason: SALINE FLUSH Last Admin: 09/06/19 21:52 Dose: 40 ml Documented by: Assessment/Plan Active and Suspected Problems (Last Reviewed 08/03/19 @ 13:[address] Maury Waite MD) Sepsis (Acute) Cellulitis (Acute) RECOMMENDATIONS: 1. Continue antimicrobials per ID recommendations. 2. Avoid IV Ativan in the future. 3. Electrolyte repletion. 4. Continue home ventilator support. 5. Continue tube feeds. 6. Given clinical stability, the patient is medically stable for transfer out of the intensive care unit. IMPRESSIONS: 1. Septic shock Clinical concern for cellulitis as precipitating etiology. While I cannot discount the possibility of infection contributing to the patient's hemodynamic compromise yesterday, he did appear to receive several doses of IV Ativan prior to the development of his hypotension. In the past, there is documentation that the patient does have an exaggerated hemodynamic response to IV Ativan. Therefore, I cannot discount the possibility that the patient's hypotension and subsequent need for vasopressor support did not come as a consequence of the medications administered to him. Regardless, the patient has been adequately volume resuscitated from a sepsis perspective. He was able to be weaned completely off of vasopressor support this morning and remains hemodynamically stable. The patient will be continued on antimicrobials per ID recommendations. 2. Chronic respiratory failure The patient is at his baseline from a respiratory perspective. Continue home vent settings. 3. Hypokalemia Electrolyte repletion as ordered. Recheck levels in the morning. 4. Baseline spastic quadriplegia/cerebral palsy/seizure disorder/pancytopenia/iron deficiency anemia Complicates care, management, recovery and prognosis. Okay to continue home medications from my perspective. There is no indication for the transfusion of blood products at the current time. This note was generated with Scaladoation software. It may contain incorrect words, spelling, and punctuation that were not noted in checking the note before signing. Inpatient E&M: 20576 Init Hosp L3
[2019-09-07] MEDS: Enoxaparin 80 MG/0.8 ML Syringe 70 MG SC ×2 (06:41→17:45)
--- NOTE | 2019-09-07 10:21 | PCM.PN.ID ---
Patient Problems: Active and Suspected Problems (Last Reviewed 08/03/19 @ 13:[address] Maury Waite MD) Sepsis (Acute) Cellulitis (Acute) Subjective: Much improved, off pressors, no fever overnight. Leg less red per mother. - Physical Exam Vitals/I&O's: Vital Signs Temp Pulse Resp BP Pulse Ox 98.1 F 92 19 H 111/72 97 09/07/19 08:00 09/07/19 08:00 09/07/19 08:00 09/07/19 08:00 09/07/19 08:00 Oxygen Flow Rate (L/min) 3 Oxygen Delivery Method Mechanical Ventilator Weight: 79.5 kg Body Mass Index (BMI) 33.0 Finger Stick Blood Glucose 132 Intake and Output for Last 24 Hours 09/05/19 09/06/19 09/07/19 23:59 23:59 23:59 Intake Total 112 / 112 8190.76 / 8611.11 2612.05 / 2612.05 Output Total 3220 / 3820 1900 / 1900 Balance 112 / 112 4970.76 / 4791.11 712.05 / 712.05 General: No apparent distress - eyes open Lungs: Clear to auscultation, Normal air movement Cardiovascular: Regular rate, Regular Rhythm Abdomen: Soft, Non Tender, Non-Distended Skin: Rash Present - mild on R thigh Microbiology Past 72 Hours 09/06/19 01:00 Stool Stool Occult Blood (LONG) - Final Occult Blood Positive Laboratory Results 09/06/19 12:13: POC Glucose 100 09/06/19 15:20: WBC Cancelled, Corrected WBC Cancelled, RBC Cancelled, Hgb Cancelled, Hct Cancelled, MCV Cancelled, MCH Cancelled, MCHC Cancelled, RDW Std Deviation Cancelled, RDW Coeff of Emilee Cancelled, Plt Count Cancelled, MPV Cancelled, Immature Gran % (Auto) Cancelled, Neut % (Auto) Cancelled, Lymph % (Auto) Cancelled, [place] % (Auto) Cancelled, Eos % (Auto) Cancelled, Baso % (Auto) Cancelled, Absolute Neuts (auto) Cancelled, Absolute Lymphs (auto) Cancelled, Total Counted Cancelled, Neutrophils % (Manual) Cancelled, Band Neutrophils % Cancelled, Lymphocytes % (Manual) Cancelled, Monocytes % (Manual) Cancelled, Eosinophils % (Manual) Cancelled, Basophils % (Manual) Cancelled, Metamyelocytes % Cancelled, Myelocytes % Cancelled, Promyelocytes % Cancelled, Blast Cells % Cancelled, Plasma Cell % (Manual) Cancelled, Other Cells % Cancelled, Nucleated RBC % Cancelled, Nucleated RBCs/100 WBC Cancelled, Differential Comment Cancelled, Diff Path Review Cancelled, Hypersegmented Neuts Cancelled, Atypical Lymphocytes Cancelled, Reactive Lymphocytes Cancelled, Smudge Cells Cancelled, Toxic Granulation Cancelled, Toxic Vacuolation Cancelled, Dohle Bodies Cancelled, Yvonne Rods Cancelled, Platelet Estimate Cancelled, Plt Morphology Comment Cancelled, RBC Morphology Cancelled, Polychromasia Cancelled, Hypochromasia Cancelled, Poikilocytosis Cancelled, Basophilic Stippling Cancelled, Anisocytosis Cancelled, Microcytosis Cancelled, Macrocytosis Cancelled, Spherocytes Cancelled, Sickle Cells Cancelled, Target Cells Cancelled, Tear Drop Cells Cancelled, Ovalocytes Cancelled, Stomatocytes Cancelled, Harris-Hundred Bodies Cancelled, [place] Cells Cancelled, Bite Cells Cancelled, Crenated Cell Cancelled, Acanthocytes (Spur) Cancelled, Rouleaux Cancelled, Schistocytes Cancelled 09/06/19 15:20: Lactic Acid Cancelled 09/06/19 15:47: WBC 3.9 L, RBC 2.66 L, Hgb 7.6 L, Hct 23.7 L, MCV 89.1, MCH 28.6, MCHC 32.1, RDW Std Deviation 48.3 H, RDW Coeff of Emilee 15.0 H, Plt Count 58 L, MPV 12.1 H, Immature Gran % (Auto) 0.300, Neut % (Auto) 52.1, Lymph % (Auto) 30.4, [place] % (Auto) 16.9 H, Eos % (Auto) 0.0, Baso % (Auto) 0.3, Absolute Neuts (auto) 2.0, Absolute Lymphs (auto) 1.19, Nucleated RBC % 0, Platelet Estimate MOD DEC, RBC Morphology N CHROM, Anisocytosis 1+ 09/06/19 15:47: Lactic Acid 0.6 09/06/19 15:55: COVID-19 (YAYO) Not Detected 09/06/19 21:50: Hgb 8.3 L, Hct 26.1 L 09/06/19 22:37: Vancomycin Trough 35.5 H 09/07/19 04:20: WBC 4.3 L, RBC 2.77 L, Hgb 8.0 L, Hct 25.1 L, MCV 90.6, MCH 28.9, MCHC 31.9 L, RDW Std Deviation 50.4 H, RDW Coeff of Emilee 15.3 H, Plt Count 71 L, MPV 11.6, Immature Gran % (Auto) 0.700, Neut % (Auto) 55.9, Lymph % (Auto) 26.8, [place] % (Auto) 15.9 H, Eos % (Auto) 0.7, Baso % (Auto) 0.0, Absolute Neuts (auto) 2.4, Absolute Lymphs (auto) 1.15, Nucleated RBC % 0 09/07/19 04:20: Sodium 143, Potassium 3.3 L, Chloride 114 H, Carbon Dioxide 25.0, Anion Gap 4 L, BUN 10, Creatinine 0.45 L, Estim Creat Clear Calc 158.95, Est GFR (MDRD) Af Amer 272, Est GFR (MDRD) Non-Af 224, BUN/Creatinine Ratio 22.3 H, Glucose 79, Calcium 7.5 L Current Medications Acetaminophen (Tylenol) 650 mg RECTAL Q4H PRN PRN PRN Reason: Pain Score 1-10/Temp > 100.7 F Acetaminophen (Tylenol Liquid) 650 mg GT Q6H PRN PRN PRN Reason: Pain Score 1-10/Temp > 100.7 F Albuterol Sulfate (Ventolin Aerosols) 2.5 mg INHALATION Q2H PRN PRN PRN Reason: Dyspnea, wheezing Ascorbic Acid (Vitamin C) 500 mg GT DAILY [facility] Last Admin: 09/06/19 09:22 Dose: 500 mg Documented by: Baclofen (Lioresal) 20 mg GT Q6 [facility] Last Admin: 09/07/19 05:45 Dose: 20 mg Documented by: Cholecalciferol (Vitamin D (25mcg)) 1,000 unit GT DAILY [facility] Last Admin: 09/06/19 09:22 Dose: 1,000 unit Documented by: Doxazosin Mesylate (Cardura) 2 mg GT DAILY [facility] Last Admin: 09/06/19 09:27 Dose: 2 mg Documented by: Enoxaparin Sodium (Lovenox) 70 mg SC Q12@0600,1800 [facility] Last Admin: 09/07/19 06:41 Dose: 70 mg Documented by: Ferrous Sulfate (Ferrous Sulfate Syrup) 300 mg GT DAILY [facility] Last Admin: 09/06/19 09:13 Dose: 300 mg Documented by: Furosemide (Lasix) 40 mg GT DAILY PRN PRN PRN Reason: edema Gabapentin (Gabapentin) 250 mg GT Q6 [facility] Last Admin: 09/07/19 05:45 Dose: 250 mg Documented by: Glucagon () 1 mg IM .X1 PRN PRN Reason: Hypoglycemia Sodium Chloride () 1,000 mls @ 150 mls/hr IV .[id number] [facility] Last Infusion: 09/07/19 06:27 Dose: 150 mls/hr Documented by: Sodium Chloride () 250 mls @ 15 mls/hr IV .[id number] PRN PRN Reason: Saline Flush Last Infusion: 09/07/19 03:43 Dose: 15 mls/hr Documented by: Sodium Chloride () 250 mls @ 15 mls/hr IV .[id number] PRN PRN Reason: Additional IVPB Infusion Enteral Nutritional Formula (Jevity 1.5) 1,000 mls @ 50 mls/hr GT .Q20H [facility] Last Admin: 09/07/19 05:56 Dose: 50 mls/hr Documented by: Piperacillin Sod/Tazobactam (Sod 3.375 gm/ Sodium Chloride) 50 mls @ 12.5 mls/hr IV Q8 [facility] Last Admin: 09/07/19 05:45 Dose: 12.5 mls/hr Documented by: Norepinephrine Bitartrate 8 mg (/ Sodium Chloride) 250 mls @ 9.375 mls/hr CONT INF .[id number] [facility]; Protocol Last Titration: 09/07/19 06:00 Dose: 0 mcg/min, 0 mls/hr Documented by: Lactobacillus Acidophilus (Acidophilus) 1 tablet GT DAILY [facility] Last Admin: 09/06/19 09:22 Dose: 1 tablet Documented by: Lansoprazole (Lansoprazole) 15 mg GT BID [facility] Last Admin: 09/06/19 22:07 Dose: 15 mg Documented by: Lorazepam (Ativan) 1 mg GT Q8H PRN PRN PRN Reason: AGITATION Last Admin: 09/06/19 06:22 Dose: 1 mg Documented by: Metoclopramide HCl (Reglan) 10 mg GT TID [facility] Last Admin: 09/07/19 05:47 Dose: 10 mg Documented by: Ondansetron HCl (Zofran Odt) 4 mg GT DAILY PRN PRN PRN Reason: NAUSEA Ondansetron HCl (Zofran) 4 mg IV Q8H PRN PRN PRN Reason: NAUSEA/VOMITING Phenobarbital (Phenobarbital) 60 mg GT BID [facility] Last Admin: 09/06/19 22:01 Dose: 60 mg Documented by: Polyethylene Glycol (Miralax) 17 gm GT TID [facility] Last Admin: 09/07/19 05:45 Dose: 17 gm Documented by: Potassium Chloride (Potassium Chl Soln) 15 meq GT DAILY PRN PRN PRN Reason: WITH LASIX Prochlorperazine Edisylate (Compazine Iv) 5 mg IV Q4H PRN PRN PRN Reason: Breakthrough Nausea/Vomiting Simethicone (Mylicon) 120 mg GT TIDPC [facility] Last Admin: 09/06/19 17:54 Dose: 120 mg Documented by: Sodium Chloride () 10 - 40 ml IV UD PRN PRN Reason: SALINE FLUSH Last Admin: 09/06/19 21:52 Dose: 40 ml Documented by: Medical Necessity - Tobacco Use Smoking Status: Never smoker Route of nutrition/ use of supplements: [] Nutritional Intake: [] IV Site: [] Augustin Catheter: [] - Assessment/Plan Antibiotics: [] Assessment/Plan: [] Active and Suspected Problems (Last Reviewed 08/03/19 @ 13:[address] Maury Waite MD) Sepsis (Acute) Cellulitis (Acute) septic shock - much improved, off pressors, no further fever, moving out of icu. CT showed no deep infection. Will stop vanc. Cont zosyn. Will follow
[2019-09-07] MEDS: Ferrous Sulfate 300 MG/5 ML UDC GT (12:13)
[2019-09-07] MEDS: Doxazosin 1 MG Tablet 2 MG GT (12:14)
[2019-09-07] MEDS: Ascorbic Acid 500 MG Tablet GT (12:14)
[2019-09-07] MEDS: Phenobarbital 20 MG/5 ML UDC 60 MG GT ×2 (12:28→23:18)
[2019-09-07] MEDS: Simethicone 40MG/0.6ML Bottle 120 MG GT ×3 (12:29→17:41)
--- NOTE | 2019-09-07 13:27 | CPS ---
1300...pt assessed. Pt resting comfortably mother at bedside. Continuous pulse ox set up and saturation 98% on home vent. Pt was suctioned for scant amount of clear secretions.
--- NOTE | 2019-09-07 17:13 | PCM.PROGNOTE ---
Patient Problems: Active and Suspected Problems (Last Reviewed 08/03/19 @ 13:[address] Maury Waite MD) Sepsis (Acute) Cellulitis (Acute) Subjective: Patient was seen and examined today earlier in the ICU, he was taken off pressor agents and he has been doing fine as far as his blood pressures concerned. Patient's white blood cell count has improved from yesterday, he is afebrile, I am not really sure he has septic shock and I discussed this with infectious diseases. Final blood and sputum cultures are pending. I talked at length with the patient's mother who was in the room today. Objective: General: Patient is alert, he shows obvious evidence of developmental delay and cerebral palsy which is chronic HEENT: Atraumatic, PERRLA, Normocephalic Oral: Moist Mucosa Neck: Supple, No JVD, Trachea Midline, - - Tracheostomy is present Lungs: Clear to auscultation, Normal air movement, No rhonchi, No wheeze Cardiovascular: Regular rate, Regular Rhythm, Normal S1, Normal S2, No murmurs Abdomen: Bowel Sounds Present, Soft, Non Tender, Non-Distended, - - Colostomy and PEG tube in place Extremities: No cyanosis, Capillary Refill Less than 3 Seconds, Edema - Neurolyse edema is noted over both lower extremities along with contractures of the legs, there is generalized redness noted of the right upper inner leg, muscle wasting which is severe is noted in both lower extremities Skin: No rashes, No breakdown Neurological: - - Patient is lethargic, he does not move his upper or lower extremities Psych/Mental Status: - - Patient is alert, he remains nonverbal which is chronic, he does not appear to be in any distress at this time. - Physical Exam Vitals/I&O's: Vital Signs Temp Pulse Resp BP Pulse Ox 97.9 F 96 16 127/79 H 95 09/07/19 11:12 09/07/19 15:25 09/07/19 11:12 09/07/19 11:12 09/07/19 11:12 Oxygen Flow Rate (L/min) 4 Oxygen Delivery Method Trach Collar Weight: 79.5 kg Body Mass Index (BMI) 33.0 Finger Stick Blood Glucose 132 Intake and Output for Last 24 Hours 09/05/19 09/06/19 09/07/19 23:59 23:59 23:59 Intake Total 112 / 112 8190.76 / 8611.11 3319.55 / 3319.55 Output Total 3220 / 3820 2350 / 2350 Balance 112 / 112 4970.76 / 4791.11 969.55 / 969.55 Microbiology Past 72 Hours 09/07/19 06:20 Sputum, Induced/Lukens Gram Stain - Final 09/06/19 01:00 Stool Stool Occult Blood (LONG) - Final Occult Blood Positive Laboratory Results 09/06/19 15:55: COVID-19 (YAYO) Not Detected 09/06/19 21:50: Hgb 8.3 L, Hct 26.1 L 09/06/19 22:37: Vancomycin Trough 35.5 H 09/07/19 04:20: WBC 4.3 L, RBC 2.77 L, Hgb 8.0 L, Hct 25.1 L, MCV 90.6, MCH 28.9, MCHC 31.9 L, RDW Std Deviation 50.4 H, RDW Coeff of Emilee 15.3 H, Plt Count 71 L, MPV 11.6, Immature Gran % (Auto) 0.700, Neut % (Auto) 55.9, Lymph % (Auto) 26.8, [place] % (Auto) 15.9 H, Eos % (Auto) 0.7, Baso % (Auto) 0.0, Absolute Neuts (auto) 2.4, Absolute Lymphs (auto) 1.15, Nucleated RBC % 0 09/07/19 04:20: Sodium 143, Potassium 3.3 L, Chloride 114 H, Carbon Dioxide 25.0, Anion Gap 4 L, BUN 10, Creatinine 0.45 L, Estim Creat Clear Calc 158.95, Est GFR (MDRD) Af Amer 272, Est GFR (MDRD) Non-Af 224, BUN/Creatinine Ratio 22.3 H, Glucose 79, Calcium 7.5 L Current Medications Acetaminophen (Tylenol) 650 mg RECTAL Q4H PRN PRN PRN Reason: Pain Score 1-10/Temp > 100.7 F Acetaminophen (Tylenol Liquid) 650 mg GT Q6H PRN PRN PRN Reason: Pain Score 1-10/Temp > 100.7 F Albuterol Sulfate (Ventolin Aerosols) 2.5 mg INHALATION Q2H PRN PRN PRN Reason: Dyspnea, wheezing Ascorbic Acid (Vitamin C) 500 mg GT DAILY [facility] Last Admin: 09/07/19 12:14 Dose: 500 mg Documented by: Baclofen (Lioresal) 20 mg GT Q6 [facility] Last Admin: 09/07/19 12:13 Dose: 20 mg Documented by: Cholecalciferol (Vitamin D (25mcg)) 1,000 unit GT DAILY [facility] Last Admin: 09/07/19 12:14 Dose: 1,000 unit Documented by: Doxazosin Mesylate (Cardura) 2 mg GT DAILY [facility] Last Admin: 09/07/19 12:14 Dose: 2 mg Documented by: Enoxaparin Sodium (Lovenox) 70 mg SC Q12@0600,1800 [facility] Last Admin: 09/07/19 06:41 Dose: 70 mg Documented by: Ferrous Sulfate (Ferrous Sulfate Syrup) 300 mg GT DAILY [facility] Last Admin: 09/07/19 12:13 Dose: 300 mg Documented by: Gabapentin (Gabapentin) 250 mg GT Q6 [facility] Last Admin: 09/07/19 12:33 Dose: 250 mg Documented by: Glucagon () 1 mg IM .X1 PRN PRN Reason: Hypoglycemia Sodium Chloride () 1,000 mls @ 150 mls/hr IV .Q6H40M [facility] Last Admin: 09/07/19 11:21 Dose: 150 mls/hr Documented by: Sodium Chloride () 250 mls @ 15 mls/hr IV .[id number] PRN PRN Reason: Saline Flush Last Infusion: 09/07/19 03:43 Dose: 15 mls/hr Documented by: Sodium Chloride () 250 mls @ 15 mls/hr IV .[id number] PRN PRN Reason: Additional IVPB Infusion Enteral Nutritional Formula (Jevity 1.5) 1,000 mls @ 50 mls/hr GT .Q20H [facility] Last Admin: 09/07/19 05:56 Dose: 50 mls/hr Documented by: Piperacillin Sod/Tazobactam (Sod 3.375 gm/ Sodium Chloride) 50 mls @ 12.5 mls/hr IV Q8 [facility] Last Admin: 09/07/19 14:57 Dose: 12.5 mls/hr Documented by: Lactobacillus Acidophilus (Acidophilus) 1 tablet GT DAILY [facility] Last Admin: 09/07/19 12:14 Dose: 1 tablet Documented by: Lansoprazole (Lansoprazole) 15 mg GT BID [facility] Last Admin: 09/07/19 11:16 Dose: Not Given Documented by: Lorazepam (Ativan) 1 mg GT Q8H PRN PRN PRN Reason: AGITATION Last Admin: 09/06/19 06:22 Dose: 1 mg Documented by: Metoclopramide HCl (Reglan) 10 mg GT TID [facility] Last Admin: 09/07/19 14:50 Dose: 10 mg Documented by: Ondansetron HCl (Zofran Odt) 4 mg GT DAILY PRN PRN PRN Reason: NAUSEA Ondansetron HCl (Zofran) 4 mg IV Q8H PRN PRN PRN Reason: NAUSEA/VOMITING Phenobarbital (Phenobarbital) 60 mg GT BID [facility] Last Admin: 09/07/19 12:28 Dose: 60 mg Documented by: Polyethylene Glycol (Miralax) 17 gm GT TID [facility] Last Admin: 09/07/19 14:50 Dose: 17 gm Documented by: Potassium Chloride (Potassium Chl Soln) 15 meq GT DAILY PRN PRN PRN Reason: WITH LASIX Prochlorperazine Edisylate (Compazine Iv) 5 mg IV Q4H PRN PRN PRN Reason: Breakthrough Nausea/Vomiting Simethicone (Mylicon) 120 mg GT TIDPC [facility] Last Admin: 09/07/19 14:50 Dose: 120 mg Documented by: Sodium Chloride () 10 - 40 ml IV UD PRN PRN Reason: SALINE FLUSH Last Admin: 09/06/19 21:52 Dose: 40 ml Documented by: Medical Necessity - Tobacco Use Smoking Status: Never smoker Assessment/Plan All Active Problems (Last Reviewed 08/03/19 @ 13:[address] Maury Waite MD) Sepsis (Acute) Cellulitis (Acute) SIRS (systemic inflammatory response syndrome) (Resolved) Bradycardia (Resolved) #1 septic shock-etiology unclear at this point, patient's COVID test was negative, continue antibiotic coverage per ID, patient's vancomycin was stopped. #2 chronic respiratory failure-patient has a trach in place and is on ventilatory support chronically when sleeping. #3 cellulitis of the right upper leg #4 thrombocytopenia #5 decreased hemoglobin-patient's hemoglobin was low this afternoon, I have ordered another hemoglobin at 9:00 tonight, this drop in hemoglobin may be delusional or it may be secondary to GI bleeding. #6 recent PE-I have elected to keep the patient on Lovenox at this time due to his recent PE #7 cerebral palsy/developmental delay/mental retardation #8 Hemoccult positive stool-significance unknown at this time, patient is on a PPI #9 decreased hemoglobin-possibly secondary to delusional reasons, patient's hemoglobin this morning was 8 #10 seizure disorder He remains a full code per family request Inpatient E&M: 07990 Subs Hosp L2
[2019-09-07] MEDS: Lansoprazole 15 MG Capsule.DR GT (22:50)
[2019-09-07] MEDS: Loratadine 10 MG Tablet GT (22:50)
[2019-09-08] VITALS (19 sets, daily range): BP systolic 86–135; BP diastolic 45–81; PULSE 64–95; RESP 13–20; TEMP 36.6–37.5; O2SAT 9–98
[2019-09-08] MEDS: Baclofen 10 MG Tablet 20 MG GT ×3 (05:44→18:03)
[2019-09-08] MEDS: Enoxaparin 80 MG/0.8 ML Syringe 70 MG SC ×2 (05:44→18:03)
[2019-09-08] MEDS: GABAPENTIN 250 MG/5 ML SOLUTION GT ×3 (05:45→18:03)
[2019-09-08] MEDS: Polyethylene Glycol 3350 17 GM PACKET GT ×3 (05:45→22:25)
[2019-09-08] MEDS: Metoclopramide 10 MG Tablet GT ×3 (05:45→22:25)
[2019-09-08 05:52] LABS: Absolute Lymphocyte Count 0.89 X10^3/uL (0.83-4.51); Absolute Neutrophil Count 1.7 X10^3/uL (2.0-7.7); Basophil# 0.01 X10^3/uL; Basophil% 0.3 % (0-1); Eosinophil# 0.09 X10^3/uL; Eosinophils% 2.9 % (0-5); Hematocrit 21.1 % (40-54); Hemoglobin 6.4 g/dL (13.0-16.5); Lymphocyte # 0.89 X10^3/ul (4.0); Lymphocyte % 28.3 % (19-41); Mean Corp Hgb Conc 30.3 g/dL (32-36); Mean Corpuscular Hgb 27.8 pg (27.0-32.0); Mean Corpuscular Volume 91.7 fL (80-94); Mean Platelet Vol. 11.5 fl (6.2-12.0); Monocyte# 0.44 X10^3/uL; NRBC Flagged by Analyzer 0 % (0-5); Neutrophil % 54.2 % (47-70); POSITIVE COUNT YES; Platelet Count 67 K/mm3 (150-450); RBC Distribution Width CV 15.8 % (11.6-14.6); RBC Distribution Width SD 51.7 fl (35.1-43.9); White Blood Count 3.1 K/mm3 (4.4-11.0)
[2019-09-08] MEDS: 0.9% Normal Saline 1,000 ML 150 ML IV (05:59)
[2019-09-08 06:09] LABS: Anion Gap 4 (5-15); BUN 5 mg/dL (7-18); BUN/Creat Ratio 15.6 RATIO (10-20); Calcium,Total 7.7 mg/dL (8.5-10.1); Chloride 116 mmol/L (98-107); Creatinine, Serum 0.32 mg/dL (0.70-1.30); EST Glomerular Filtration Rate 332 mL/min (>60); Est Glom Filt Rate - Afr Amer 401 mL/min (>60); Glucose 121 mg/dL (74-106); Potassium 2.9 mmol/L (3.5-5.1); Sodium Level 143 mmol/L (136-145)
--- NOTE | 2019-09-08 09:30 | PN_ITS ---
Patient Problems: Active and Suspected Problems (Last Reviewed 08/03/19 @ 13:[address] Maury Waite MD) Sepsis (Acute) Cellulitis (Acute) Subjective: The patient was seen and examined at the bedside this morning. Events from the last 24 hours have been reviewed. The patient is currently afebrile, hemodynamically stable and maintaining appropriate oxygen saturations on 4 L/min. Hemoglobin fell this morning from 8.0 to 6.4 g/dL. Potassium was also low at 2.9. Objective: The patient's most recent lab work, culture data and imaging studies have all been personally reviewed. Infectious work-up has been unrevealing to date. - Physical Exam Vitals/I&O's: Vital Signs Temp Pulse Resp BP Pulse Ox 98.5 F 83 19 H 102/61 96 09/08/19 07:00 09/08/19 07:00 09/08/19 07:19 09/08/19 07:00 09/08/19 07:19 Oxygen Flow Rate (L/min) 4 Oxygen Delivery Method Mechanical Ventilator Weight: 175 lb 4.28 oz Body Mass Index (BMI) 33.0 Finger Stick Blood Glucose 132 Intake and Output for Last 24 Hours 09/06/19 09/07/19 09/08/19 23:59 23:59 23:59 Intake Total 8190.76 / 8611.11 5607.55 / 6251.55 2201.0 / 2201.0 Output Total 3220 / 3820 3900 / 4475 1675 / 1675 Balance 4970.76 / 4791.11 1707.55 / 1776.55 526.0 / 526.0 General: Alert, No apparent distress HEENT: Atraumatic, Normocephalic Oral: Moist Mucosa Neck: Supple, No Nodes, Trachea Midline Lungs: Diminished Cardiovascular: Regular rate, Regular Rhythm Abdomen: Bowel Sounds Present, Soft, Non Tender, Obese, - - + Ostomy Extremities: No clubbing, No cyanosis Skin: - - No significant change from previous Musculoskeletal: No Muscle Wasting Neurological: - - Baseline neurological status with spastic quadriplegia Labs (Last 48 Hours) 09/06/19 09/06/19 09/06/19 12:13 15:20 15:20 WBC Cancelled Corrected WBC Cancelled RBC Cancelled Hgb Cancelled Hct Cancelled MCV Cancelled MCH Cancelled MCHC Cancelled RDW Std Deviation Cancelled RDW Coeff of Emilee Cancelled Plt Count Cancelled MPV Cancelled Immature Gran % (Auto) Cancelled Neut % (Auto) Cancelled Lymph % (Auto) Cancelled Placer % (Auto) Cancelled Eos % (Auto) Cancelled Baso % (Auto) Cancelled Absolute Neuts (auto) Cancelled Absolute Lymphs (auto) Cancelled Total Counted Cancelled Neutrophils % (Manual) Cancelled Band Neutrophils % Cancelled Lymphocytes % (Manual) Cancelled Monocytes % (Manual) Cancelled Eosinophils % (Manual) Cancelled Basophils % (Manual) Cancelled Metamyelocytes % Cancelled Myelocytes % Cancelled Promyelocytes % Cancelled Blast Cells % Cancelled Plasma Cell % (Manual) Cancelled Other Cells % Cancelled Nucleated RBC % Cancelled Nucleated RBCs/100 WBC Cancelled Differential Comment Cancelled Diff Path Review Cancelled Hypersegmented Neuts Cancelled Atypical Lymphocytes Cancelled Reactive Lymphocytes Cancelled Smudge Cells Cancelled Toxic Granulation Cancelled Toxic Vacuolation Cancelled Dohle Bodies Cancelled Yvonne Rods Cancelled Platelet Estimate Cancelled Plt Morphology Comment Cancelled RBC Morphology Cancelled Polychromasia Cancelled Hypochromasia Cancelled Poikilocytosis Cancelled Basophilic Stippling Cancelled Anisocytosis Cancelled Microcytosis Cancelled Macrocytosis Cancelled Spherocytes Cancelled Sickle Cells Cancelled Target Cells Cancelled Tear Drop Cells Cancelled Ovalocytes Cancelled Stomatocytes Cancelled Harris-Chesterton Bodies Cancelled Bim Cells Cancelled Bite Cells Cancelled Crenated Cell Cancelled Acanthocytes (Spur) Cancelled Rouleaux Cancelled Schistocytes Cancelled Sodium Potassium Chloride Carbon Dioxide Anion Gap BUN Creatinine Estim Creat Clear Calc Est GFR (MDRD) Af Amer Est GFR (MDRD) Non-Af BUN/Creatinine Ratio Glucose Lactic Acid Cancelled Calcium Vancomycin Trough COVID-19 (YAYO) POC Glucose 100 Blood Type Antibody Screen Crossmatch 09/06/19 09/06/19 09/06/19 15:47 15:47 15:55 WBC 3.9 L Corrected WBC RBC 2.66 L Hgb 7.6 L Hct 23.7 L MCV 89.1 MCH 28.6 MCHC 32.1 RDW Std Deviation 48.3 H RDW Coeff of Emilee 15.0 H Plt Count 58 L MPV 12.1 H Immature Gran % (Auto) 0.300 Neut % (Auto) 52.1 Lymph % (Auto) 30.4 Placer % (Auto) 16.9 H Eos % (Auto) 0.0 Baso % (Auto) 0.3 Absolute Neuts (auto) 2.0 Absolute Lymphs (auto) 1.19 Total Counted Neutrophils % (Manual) Band Neutrophils % Lymphocytes % (Manual) Monocytes % (Manual) Eosinophils % (Manual) Basophils % (Manual) Metamyelocytes % Myelocytes % Promyelocytes % Blast Cells % Plasma Cell % (Manual) Other Cells % Nucleated RBC % 0 Nucleated RBCs/100 WBC Differential Comment Diff Path Review Hypersegmented Neuts Atypical Lymphocytes Reactive Lymphocytes Smudge Cells Toxic Granulation Toxic Vacuolation Dohle Bodies Yvonne Rods Platelet Estimate MOD DEC Plt Morphology Comment RBC Morphology N CHROM Polychromasia Hypochromasia Poikilocytosis Basophilic Stippling Anisocytosis 1+ Microcytosis Macrocytosis Spherocytes Sickle Cells Target Cells Tear Drop Cells Ovalocytes Stomatocytes Harris-Chesterton Bodies Bim Cells Bite Cells Crenated Cell Acanthocytes (Spur) Rouleaux Schistocytes Sodium Potassium Chloride Carbon Dioxide Anion Gap BUN Creatinine Estim Creat Clear Calc Est GFR (MDRD) Af Amer Est GFR (MDRD) Non-Af BUN/Creatinine Ratio Glucose Lactic Acid 0.6 Calcium Vancomycin Trough COVID-19 (YAYO) Not Detected POC Glucose Blood Type Antibody Screen Crossmatch 09/06/19 09/06/19 09/07/19 21:50 22:37 04:20 WBC 4.3 L Corrected WBC RBC 2.77 L Hgb 8.3 L 8.0 L Hct 26.1 L 25.1 L MCV 90.6 MCH 28.9 MCHC 31.9 L RDW Std Deviation 50.4 H RDW Coeff of Emilee 15.3 H Plt Count 71 L MPV 11.6 Immature Gran % (Auto) 0.700 Neut % (Auto) 55.9 Lymph % (Auto) 26.8 Placer % (Auto) 15.9 H Eos % (Auto) 0.7 Baso % (Auto) 0.0 Absolute Neuts (auto) 2.4 Absolute Lymphs (auto) 1.15 Total Counted Neutrophils % (Manual) Band Neutrophils % Lymphocytes % (Manual) Monocytes % (Manual) Eosinophils % (Manual) Basophils % (Manual) Metamyelocytes % Myelocytes % Promyelocytes % Blast Cells % Plasma Cell % (Manual) Other Cells % Nucleated RBC % 0 Nucleated RBCs/100 WBC Differential Comment Diff Path Review Hypersegmented Neuts Atypical Lymphocytes Reactive Lymphocytes Smudge Cells Toxic Granulation Toxic Vacuolation Dohle Bodies Yvonne Rods Platelet Estimate Plt Morphology Comment RBC Morphology Polychromasia Hypochromasia Poikilocytosis Basophilic Stippling Anisocytosis Microcytosis Macrocytosis Spherocytes Sickle Cells Target Cells Tear Drop Cells Ovalocytes Stomatocytes Harris-Chesterton Bodies Raman Cells Bite Cells Crenated Cell Acanthocytes (Spur) Rouleaux Schistocytes Sodium Potassium Chloride Carbon Dioxide Anion Gap BUN Creatinine Estim Creat Clear Calc Est GFR (MDRD) Af Amer Est GFR (MDRD) Non-Af BUN/Creatinine Ratio Glucose Lactic Acid Calcium Vancomycin Trough 35.5 H COVID-19 (YAYO) POC Glucose Blood Type Antibody Screen Crossmatch 09/07/19 09/08/19 09/08/19 04:20 05:16 05:16 WBC 3.1 L Corrected WBC RBC 2.30 L Hgb 6.4 L Hct 21.1 L MCV 91.7 MCH 27.8 MCHC 30.3 L D RDW Std Deviation 51.7 H RDW Coeff of Emilee 15.8 H Plt Count 67 L MPV 11.5 Immature Gran % (Auto) 0.300 Neut % (Auto) 54.2 Lymph % (Auto) 28.3 Placer % (Auto) 14.0 H Eos % (Auto) 2.9 Baso % (Auto) 0.3 Absolute Neuts (auto) 1.7 L Absolute Lymphs (auto) 0.89 Total Counted Neutrophils % (Manual) Band Neutrophils % Lymphocytes % (Manual) Monocytes % (Manual) Eosinophils % (Manual) Basophils % (Manual) Metamyelocytes % Myelocytes % Promyelocytes % Blast Cells % Plasma Cell % (Manual) Other Cells % Nucleated RBC % 0 Nucleated RBCs/100 WBC Differential Comment Diff Path Review Hypersegmented Neuts Atypical Lymphocytes Reactive Lymphocytes Smudge Cells Toxic Granulation Toxic Vacuolation Dohle Bodies Yvonne Rods Platelet Estimate Plt Morphology Comment RBC Morphology Polychromasia Hypochromasia Poikilocytosis Basophilic Stippling Anisocytosis Microcytosis Macrocytosis Spherocytes Sickle Cells Target Cells Tear Drop Cells Ovalocytes Stomatocytes Harris-Chesterton Bodies Raman Cells Bite Cells Crenated Cell Acanthocytes (Spur) Rouleaux Schistocytes Sodium 143 143 Potassium 3.3 L 2.9 L Chloride 114 H 116 H Carbon Dioxide 25.0 23.0 Anion Gap 4 L 4 L BUN 10 5 L Creatinine 0.45 L 0.32 L Estim Creat Clear Calc 158.95 223.52 Est GFR (MDRD) Af Amer 272 401 Est GFR (MDRD) Non-Af 224 332 BUN/Creatinine Ratio 22.3 H 15.6 Glucose 79 121 H Lactic Acid Calcium 7.5 L 7.7 L Vancomycin Trough COVID-19 (YAYO) POC Glucose Blood Type Antibody Screen Crossmatch 09/08/19 08:36 WBC Corrected WBC RBC Hgb Hct MCV MCH MCHC RDW Std Deviation RDW Coeff of Emilee Plt Count MPV Immature Gran % (Auto) Neut % (Auto) Lymph % (Auto) Placer % (Auto) Eos % (Auto) Baso % (Auto) Absolute Neuts (auto) Absolute Lymphs (auto) Total Counted Neutrophils % (Manual) Band Neutrophils % Lymphocytes % (Manual) Monocytes % (Manual) Eosinophils % (Manual) Basophils % (Manual) Metamyelocytes % Myelocytes % Promyelocytes % Blast Cells % Plasma Cell % (Manual) Other Cells % Nucleated RBC % Nucleated RBCs/100 WBC Differential Comment Diff Path Review Hypersegmented Neuts Atypical Lymphocytes Reactive Lymphocytes Smudge Cells Toxic Granulation Toxic Vacuolation Dohle Bodies Yvonne Rods Platelet Estimate Plt Morphology Comment RBC Morphology Polychromasia Hypochromasia Poikilocytosis Basophilic Stippling Anisocytosis Microcytosis Macrocytosis Spherocytes Sickle Cells Target Cells Tear Drop Cells Ovalocytes Stomatocytes Harris-Chesterton Bodies Raman Cells Bite Cells Crenated Cell Acanthocytes (Spur) Rouleaux Schistocytes Sodium Potassium Chloride Carbon Dioxide Anion Gap BUN Creatinine Estim Creat Clear Calc Est GFR (MDRD) Af Amer Est GFR (MDRD) Non-Af BUN/Creatinine Ratio Glucose Lactic Acid Calcium Vancomycin Trough COVID-19 (YAYO) POC Glucose Blood Type Pending Antibody Screen Pending Crossmatch See Detail Microbiology 09/05/19 21:35 Blood Culture (Wb) - Left Hand Blood Culture - Preliminary No growth in 48 hours. 09/05/19 21:00 Blood Culture (Wb) - Port Blood Culture - Preliminary No growth in 48 hours. 09/07/19 06:20 Sputum, Induced/Lukens Gram Stain - Final Clinical Impression(s) from Imaging Studies Chest X-Ray 09/05/19 22:00 IMPRESSION: Mild bilateral pulmonary edema Electronically Signed: Allan Kent MD at 22:28 EDT , Service support , Abdomen/Pelvis CT 09/06/19 15:10 IMPRESSION: * No demonstrated free air or free fluid or acute bowel abnormality. * Gallstone. * Mild bibasilar atelectasis Electronically Signed: Allan Kent MD at 21:22 EDT , Service support , Lower Extremity CT 09/06/19 15:12 IMPRESSION: 1. Mild subcutaneous edema. 2. No evidence of a fracture. 3. No evidence of osteomyelitis or abscess. Electronically Signed: Allan Kent MD at 21:28 EDT , Service support , Current Medications Acetaminophen (Tylenol) 650 mg RECTAL Q4H PRN PRN PRN Reason: Pain Score 1-10/Temp > 100.7 F Acetaminophen (Tylenol Liquid) 650 mg GT Q6H PRN PRN PRN Reason: Pain Score 1-10/Temp > 100.7 F Albuterol Sulfate (Ventolin Aerosols) 2.5 mg INHALATION Q2H PRN PRN PRN Reason: Dyspnea, wheezing Ascorbic Acid (Vitamin C) 500 mg GT DAILY [facility] Last Admin: 09/07/19 12:14 Dose: 500 mg Documented by: Baclofen (Lioresal) 20 mg GT Q6 [facility] Last Admin: 09/08/19 05:44 Dose: 20 mg Documented by: Cholecalciferol (Vitamin D (25mcg)) 1,000 unit GT DAILY [facility] Last Admin: 09/07/19 12:14 Dose: 1,000 unit Documented by: Doxazosin Mesylate (Cardura) 2 mg GT DAILY [facility] Last Admin: 09/07/19 12:14 Dose: 2 mg Documented by: Enoxaparin Sodium (Lovenox) 70 mg SC Q12@0600,1800 [facility] Last Admin: 09/08/19 05:44 Dose: 70 mg Documented by: Ferrous Sulfate (Ferrous Sulfate Syrup) 300 mg GT DAILY [facility] Last Admin: 09/07/19 12:13 Dose: 300 mg Documented by: Gabapentin (Gabapentin) 250 mg GT Q6 [facility] Last Admin: 09/08/19 05:45 Dose: 250 mg Documented by: Glucagon () 1 mg IM .X1 PRN PRN Reason: Hypoglycemia Sodium Chloride () 1,000 mls @ 150 mls/hr IV .Q6H40M [facility] Last Admin: 09/08/19 05:59 Dose: 150 mls/hr Documented by: Sodium Chloride () 250 mls @ 15 mls/hr IV .[id number] PRN PRN Reason: Saline Flush Last Infusion: 09/08/19 05:40 Dose: 0 mls/hr Documented by: Sodium Chloride () 250 mls @ 15 mls/hr IV .[id number] PRN PRN Reason: Additional IVPB Infusion Enteral Nutritional Formula (Jevity 1.5) 1,000 mls @ 50 mls/hr GT .Q20H [facility] Last Admin: 09/07/19 18:02 Dose: Not Given Documented by: Piperacillin Sod/Tazobactam (Sod 3.375 gm/ Sodium Chloride) 50 mls @ 12.5 mls/hr IV Q8 [facility] Last Admin: 09/08/19 05:38 Dose: 12.5 mls/hr Documented by: Lactobacillus Acidophilus (Acidophilus) 1 tablet GT DAILY [facility] Last Admin: 09/07/19 12:14 Dose: 1 tablet Documented by: Lansoprazole (Lansoprazole) 15 mg GT BID [facility] Last Admin: 09/07/19 22:50 Dose: 15 mg Documented by: Loratadine (Claritin) 10 mg GT DAILY [facility] Last Admin: 09/07/19 22:50 Dose: 10 mg Documented by: Lorazepam (Ativan) 1 mg GT Q8H PRN PRN PRN Reason: AGITATION Last Admin: 09/06/19 06:22 Dose: 1 mg Documented by: Metoclopramide HCl (Reglan) 10 mg GT TID [facility] Last Admin: 09/08/19 05:45 Dose: 10 mg Documented by: Ondansetron HCl (Zofran Odt) 4 mg GT DAILY PRN PRN PRN Reason: NAUSEA Ondansetron HCl (Zofran) 4 mg IV Q8H PRN PRN PRN Reason: NAUSEA/VOMITING Phenobarbital (Phenobarbital) 60 mg GT BID [facility] Last Admin: 09/07/19 23:18 Dose: 60 mg Documented by: Polyethylene Glycol (Miralax) 17 gm GT TID [facility] Last Admin: 09/08/19 05:45 Dose: 17 gm Documented by: Potassium Chloride (Potassium Chl Soln) 15 meq GT DAILY PRN PRN PRN Reason: WITH LASIX Prochlorperazine Edisylate (Compazine Iv) 5 mg IV Q4H PRN PRN PRN Reason: Breakthrough Nausea/Vomiting Simethicone (Mylicon) 120 mg GT TIDPC [facility] Last Admin: 09/07/19 17:41 Dose: 120 mg Documented by: Sodium Chloride () 10 - 40 ml IV UD PRN PRN Reason: SALINE FLUSH Last Admin: 09/06/19 21:52 Dose: 40 ml Documented by: Medical Necessity - Tobacco Use Smoking Status: Never smoker Assessment/Plan All Active Problems (Last Reviewed 08/03/19 @ 13:[address] Maury Waite MD) Sepsis (Acute) Cellulitis (Acute) SIRS (systemic inflammatory response syndrome) (Resolved) Bradycardia (Resolved) RECOMMENDATIONS: 1. Continue antimicrobials per ID recommendations. 2. Avoid IV Ativan in the future. 3. Continue home ventilator support. 4. Continue tube feeds. 5. Given that the patient is on his baseline vent settings and has no further ICU needs, will sign off. Please call with any additional questions. IMPRESSIONS: 1. Drug Induced Shock Although the patient was admitted to the hospital with sepsis secondary to cellulitis, I do suspect that his ensuing hemodynamic compromise was related to IV Ativan administration. In the past, there is documentation that the patient does have an exaggerated hemodynamic response to IV Ativan. Therefore, I cannot discount the possibility that the patient's hypotension and subsequent need for vasopressor support did not come as a consequence of the medications administered to him. Regardless, the patient has been adequately volume resuscitated from a sepsis perspective. He was able to be weaned completely off of vasopressor support in a short period of time and remains hemodynamically stable. The patient will be continued on antimicrobials per ID recommendations. 2. Chronic respiratory failure The patient is at his baseline from a respiratory perspective. Continue home vent settings. 3. Anemia The patient does have a history of iron deficiency anemia with a hemoglobin dropped this morning to 6.4. Plan to transfuse 2 units packed red blood cells. Check H&H posttransfusion. Continue PPI therapy. 4. Hypokalemia Electrolyte repletion as ordered. Recheck levels in the morning. 5. Baseline spastic quadriplegia/cerebral palsy/seizure disorder/pancytopenia/iron deficiency anemia Complicates care, management, recovery and prognosis. Okay to continue home medications from my perspective. This note was generated with [employer] dictation software. It may contain incorrect words, spelling, and punctuation that were not noted in checking the note before signing. Inpatient E&M: 17648 Subs Hosp L2
[2019-09-08] MEDS: Simethicone 40MG/0.6ML Bottle 120 MG GT ×3 (09:35→18:05)
[2019-09-08] MEDS: Loratadine 10 MG Tablet GT (09:36)
[2019-09-08] MEDS: Ferrous Sulfate 300 MG/5 ML UDC GT (09:36)
[2019-09-08] MEDS: Lansoprazole 15 MG Capsule.DR GT ×2 (09:36→22:25)
[2019-09-08] MEDS: Ascorbic Acid 500 MG Tablet GT (09:37)
[2019-09-08] MEDS: Doxazosin 1 MG Tablet 2 MG GT (09:42)
[2019-09-08] MEDS: Phenobarbital 20 MG/5 ML UDC 60 MG GT ×2 (09:53→22:36)
[2019-09-08 14:16] LABS: Anion Gap 7 (5-15); BUN 5 mg/dL (7-18); BUN/Creat Ratio 14.6 RATIO (10-20); Calcium,Total 8.3 mg/dL (8.5-10.1); Chloride 115 mmol/L (98-107); Creatinine, Serum 0.34 mg/dL (0.70-1.30); EST Glomerular Filtration Rate 306 mL/min (>60); Est Glom Filt Rate - Afr Amer 371 mL/min (>60); Estimated Creatinine Clearance 210.38 ml/min; Glucose 90 mg/dL (74-106); Potassium 3.6 mmol/L (3.5-5.1); Sodium Level 145 mmol/L (136-145)
[2019-09-08] MEDS: Sodium Ferric Gluconat 125 MG in 0.9% Normal Saline 100 ML 110 MG IV (17:31)
--- NOTE | 2019-09-08 17:49 | PCM.PROGNOTE ---
Patient Problems: Active and Suspected Problems (Last Reviewed 08/03/19 @ 13:[address] Maruy Waite MD) Sepsis (Acute) Cellulitis (Acute) Subjective: Patient was seen and examined today, he appears in no acute distress, his mother and father were in the room today and I discussed his medical care with them. Patient's hemoglobin this morning was low at 6.4, patient does not appear to be actively bleeding however, I have decided to transfuse the patient 2 units of packed red blood cells and administer Venofer. I talked briefly with infectious diseases, they state that the patient has Pseudomonas in his sputum and they advised waiting for culture results and finish out a week's worth of antibiotic coverage. Objective: General: Patient is alert, he shows obvious evidence of developmental delay and cerebral palsy which is chronic HEENT: Atraumatic, PERRLA, Normocephalic Oral: Moist Mucosa Neck: Supple, No JVD, Trachea Midline, - - Tracheostomy is present Lungs: Clear to auscultation, Normal air movement, No rhonchi, No wheeze Cardiovascular: Regular rate, Regular Rhythm, Normal S1, Normal S2, No murmurs Abdomen: Bowel Sounds Present, Soft, Non Tender, Non-Distended, - - Colostomy and PEG tube in place Extremities: No cyanosis, Capillary Refill Less than 3 Seconds, Edema - Neurolyse edema is noted over both lower extremities along with contractures of the legs, there is generalized redness noted of the right upper inner leg, muscle wasting which is severe is noted in both lower extremities Skin: No rashes, No breakdown Neurological: - - Patient is lethargic, he does not move his upper or lower extremities Psych/Mental Status: - - Patient is alert, he remains nonverbal which is chronic, he does not appear to be in any distress at this time. - Physical Exam Vitals/I&O's: Vital Signs Temp Pulse Resp BP Pulse Ox 98.8 F 72 20 H 96/55 L 9 09/08/19 16:52 09/08/19 16:52 09/08/19 16:52 09/08/19 16:52 09/08/19 16:52 Oxygen Flow Rate (L/min) 4 Oxygen Delivery Method Mechanical Ventilator Weight: 79.5 kg Body Mass Index (BMI) 33.0 Finger Stick Blood Glucose 132 Intake and Output for Last 24 Hours 09/06/19 09/07/19 09/08/19 23:59 23:59 23:59 Intake Total 8190.76 / 8611.11 5607.55 / 6251.55 4174.0 / 4174.0 Output Total 3220 / 3820 3900 / 4475 2275 / 2275 Balance 4970.76 / 4791.11 1707.55 / 1776.55 1899.0 / 1899.0 Microbiology Past 72 Hours 09/07/19 06:20 Sputum, Induced/Lukens Gram Stain - Final 09/07/19 06:20 Sputum, Induced/Lukens Respiratory Culture - Preliminary GNR Poss Pseudomonas sp 09/05/19 21:35 Blood Culture (Wb) - Left Hand Blood Culture - Preliminary No growth in 48 hours. 09/05/19 21:00 Blood Culture (Wb) - Port Blood Culture - Preliminary No growth in 48 hours. 09/06/19 01:00 Stool Stool Occult Blood (LONG) - Final Occult Blood Positive Laboratory Results 09/08/19 05:16: WBC 3.1 L, RBC 2.30 L, Hgb 6.4 L, Hct 21.1 L, MCV 91.7, MCH 27.8, MCHC 30.3 L D, RDW Std Deviation 51.7 H, RDW Coeff of Emilee 15.8 H, Plt Count 67 L, MPV 11.5, Immature Gran % (Auto) 0.300, Neut % (Auto) 54.2, Lymph % (Auto) 28.3, Adams % (Auto) 14.0 H, Eos % (Auto) 2.9, Baso % (Auto) 0.3, Absolute Neuts (auto) 1.7 L, Absolute Lymphs (auto) 0.89, Nucleated RBC % 0 09/08/19 05:16: Sodium 143, Potassium 2.9 L, Chloride 116 H, Carbon Dioxide 23.0, Anion Gap 4 L, BUN 5 L, Creatinine 0.32 L, Estim Creat Clear Calc 223.52, Est GFR (MDRD) Af Amer 401, Est GFR (MDRD) Non-Af 332, BUN/Creatinine Ratio 15.6, Glucose 121 H, Calcium 7.7 L 09/08/19 08:36: Blood Type A POSITIVE, Antibody Screen NEGATIVE, Crossmatch See Detail 09/08/19 13:43: Sodium 145, Potassium 3.6, Chloride 115 H, Carbon Dioxide 23.0, Anion Gap 7, BUN 5 L, Creatinine 0.34 L, Estim Creat Clear Calc 210.38, Est GFR (MDRD) Af Amer 371, Est GFR (MDRD) Non-Af 306, BUN/Creatinine Ratio 14.6, Glucose 90, Calcium 8.3 L Current Medications Acetaminophen (Tylenol) 650 mg RECTAL Q4H PRN PRN PRN Reason: Pain Score 1-10/Temp > 100.7 F Acetaminophen (Tylenol Liquid) 650 mg GT Q6H PRN PRN PRN Reason: Pain Score 1-10/Temp > 100.7 F Albuterol Sulfate (Ventolin Aerosols) 2.5 mg INHALATION Q2H PRN PRN PRN Reason: Dyspnea, wheezing Ascorbic Acid (Vitamin C) 500 mg GT DAILY [facility] Last Admin: 09/08/19 09:37 Dose: 500 mg Documented by: Baclofen (Lioresal) 20 mg GT Q6 [facility] Last Admin: 09/08/19 12:05 Dose: 20 mg Documented by: Cholecalciferol (Vitamin D (25mcg)) 1,000 unit GT DAILY [facility] Last Admin: 09/08/19 09:37 Dose: 1,000 unit Documented by: Doxazosin Mesylate (Cardura) 2 mg GT DAILY [facility] Last Admin: 09/08/19 09:42 Dose: 2 mg Documented by: Enoxaparin Sodium (Lovenox) 70 mg SC Q12@0600,1800 [facility] Last Admin: 09/08/19 05:44 Dose: 70 mg Documented by: Ferrous Sulfate (Ferrous Sulfate Syrup) 300 mg GT DAILY [facility] Last Admin: 09/08/19 09:36 Dose: 300 mg Documented by: Gabapentin (Gabapentin) 250 mg GT Q6 [facility] Last Admin: 09/08/19 12:05 Dose: 250 mg Documented by: Glucagon () 1 mg IM .X1 PRN PRN Reason: Hypoglycemia Sodium Chloride () 250 mls @ 15 mls/hr IV .[id number] PRN PRN Reason: Saline Flush Last Infusion: 09/08/19 05:40 Dose: 0 mls/hr Documented by: Sodium Chloride () 250 mls @ 15 mls/hr IV .[id number] PRN PRN Reason: Additional IVPB Infusion Enteral Nutritional Formula (Jevity 1.5) 1,000 mls @ 50 mls/hr GT .Q20H [facility] Last Admin: 09/07/19 18:02 Dose: Not Given Documented by: Piperacillin Sod/Tazobactam (Sod 3.375 gm/ Sodium Chloride) 50 mls @ 12.5 mls/hr IV Q8 [facility] Last Infusion: 09/08/19 11:21 Dose: Infused Documented by: Lactobacillus Acidophilus (Acidophilus) 1 tablet GT DAILY [facility] Last Admin: 09/08/19 09:36 Dose: 1 tablet Documented by: Lansoprazole (Lansoprazole) 15 mg GT BID [facility] Last Admin: 09/08/19 09:36 Dose: 15 mg Documented by: Loratadine (Claritin) 10 mg GT DAILY [facility] Last Admin: 09/08/19 09:36 Dose: 10 mg Documented by: Lorazepam (Ativan) 1 mg GT Q8H PRN PRN PRN Reason: AGITATION Last Admin: 09/06/19 06:22 Dose: 1 mg Documented by: Metoclopramide HCl (Reglan) 10 mg GT TID [facility] Last Admin: 09/08/19 14:22 Dose: 10 mg Documented by: Ondansetron HCl (Zofran Odt) 4 mg GT DAILY PRN PRN PRN Reason: NAUSEA Ondansetron HCl (Zofran) 4 mg IV Q8H PRN PRN PRN Reason: NAUSEA/VOMITING Phenobarbital (Phenobarbital) 60 mg GT BID [facility] Last Admin: 09/08/19 09:53 Dose: 60 mg Documented by: Polyethylene Glycol (Miralax) 17 gm GT TID [facility] Last Admin: 09/08/19 14:22 Dose: 17 gm Documented by: Potassium Chloride (Potassium Chl Soln) 15 meq GT DAILY PRN PRN PRN Reason: WITH LASIX Prochlorperazine Edisylate (Compazine Iv) 5 mg IV Q4H PRN PRN PRN Reason: Breakthrough Nausea/Vomiting Simethicone (Mylicon) 120 mg GT TIDPC [facility] Last Admin: 09/08/19 12:08 Dose: 120 mg Documented by: Sodium Chloride () 10 - 40 ml IV UD PRN PRN Reason: SALINE FLUSH Last Admin: 09/06/19 21:52 Dose: 40 ml Documented by: Medical Necessity - Tobacco Use Smoking Status: Never smoker Assessment/Plan All Active Problems (Last Reviewed 08/03/19 @ 13:[address] Maury Waite MD) Sepsis (Acute) Cellulitis (Acute) SIRS (systemic inflammatory response syndrome) (Resolved) Bradycardia (Resolved) #1 Sepsis secondary to cellulitis-I do not feel the patient actually had septic shock, antibiotic coverage to continue per ID. #2 chronic respiratory failure-patient has a trach in place and is on ventilatory support chronically when sleeping. #3 cellulitis of the right upper leg #4 thrombocytopenia #5 Anemia secondary to unknown etiology-probably combination of GI blood loss from an unknown site and anemia of chronic disease with an overlay of delusional anemia-patient will be transfused 2 units of packed red blood cells, recheck CBC in the morning #6 recent PE-I have elected to keep the patient on Lovenox at this time due to his recent PE #7 cerebral palsy/developmental delay/mental retardation #8 Hemoccult positive stool-significance unknown at this time, patient is on a PPI #9 decreased hemoglobin-possibly secondary to delusional reasons, patient's hemoglobin this morning was 8 #10 seizure disorder #11 sputum positive for Pseudomonas-significance of this is unknown at this time, this could be secondary to colonization. Antibiotic coverage per ID #12 shock secondary to administration of Ativan for agitation-again I do not think the patient actually had septic shock. He remains a full code per family request Inpatient E&M: 09187 Subs Hosp L2
[2019-09-08] MEDS: Jevity 1.5 1,000 ML 50 ML GT (18:19)
--- NOTE | 2019-09-08 18:19 | PN.ID_ITS ---
Patient Problems: Active and Suspected Problems (Last Reviewed 08/03/19 @ 13:[address] Maury Waite MD) Sepsis (Acute) Cellulitis (Acute) Subjective: Doing better, no fever, mother at bedside - Physical Exam Vitals/I&O's: Vital Signs Temp Pulse Resp BP Pulse Ox 99.1 F 68 15 122/76 H 98 09/08/19 19:53 09/08/19 19:53 09/08/19 19:53 09/08/19 19:53 09/08/19 19:53 Oxygen Flow Rate (L/min) 4 Oxygen Delivery Method Mechanical Ventilator Weight: 79.5 kg Body Mass Index (BMI) 33.0 Finger Stick Blood Glucose 132 Intake and Output for Last 24 Hours 09/06/19 09/07/19 09/08/19 23:59 23:59 23:59 Intake Total 8190.76 / 8611.11 5607.55 / 6251.55 4670.0 / 4670.0 Output Total 3220 / 3820 3900 / 4475 3175 / 3175 Balance 4970.76 / 4791.11 1707.55 / 1776.55 1495.0 / 1495.0 General: No apparent distress Lungs: - - relatively clear Cardiovascular: Regular rate, Regular Rhythm Abdomen: Soft, Non Tender, Non-Distended Skin: No rashes Microbiology Past 72 Hours 09/07/19 06:20 Sputum, Induced/Lukens Gram Stain - Final 09/07/19 06:20 Sputum, Induced/Lukens Respiratory Culture - Preliminary GNR Poss Pseudomonas sp 09/05/19 21:35 Blood Culture (Wb) - Left Hand Blood Culture - Preliminary No growth in 48 hours. 09/05/19 21:00 Blood Culture (Wb) - Port Blood Culture - Preliminary No growth in 48 hours. 09/06/19 01:00 Stool Stool Occult Blood (LONG) - Final Occult Blood Positive Laboratory Results 09/08/19 05:16: WBC 3.1 L, RBC 2.30 L, Hgb 6.4 L, Hct 21.1 L, MCV 91.7, MCH 27.8, MCHC 30.3 L D, RDW Std Deviation 51.7 H, RDW Coeff of Emilee 15.8 H, Plt Count 67 L, MPV 11.5, Immature Gran % (Auto) 0.300, Neut % (Auto) 54.2, Lymph % (Auto) 28.3, [place] % (Auto) 14.0 H, Eos % (Auto) 2.9, Baso % (Auto) 0.3, Absolute Neuts (auto) 1.7 L, Absolute Lymphs (auto) 0.89, Nucleated RBC % 0 09/08/19 05:16: Sodium 143, Potassium 2.9 L, Chloride 116 H, Carbon Dioxide 23.0, Anion Gap 4 L, BUN 5 L, Creatinine 0.32 L, Estim Creat Clear Calc 223.52, Est GFR (MDRD) Af Amer 401, Est GFR (MDRD) Non-Af 332, BUN/Creatinine Ratio 15.6, Glucose 121 H, Calcium 7.7 L 09/08/19 08:36: Blood Type A POSITIVE, Antibody Screen NEGATIVE, Crossmatch See Detail 09/08/19 13:43: Sodium 145, Potassium 3.6, Chloride 115 H, Carbon Dioxide 23.0, Anion Gap 7, BUN 5 L, Creatinine 0.34 L, Estim Creat Clear Calc 210.38, Est GFR (MDRD) Af Amer 371, Est GFR (MDRD) Non-Af 306, BUN/Creatinine Ratio 14.6, Gluc ose 90, Calcium 8.3 L Current Medications Acetaminophen (Tylenol) 650 mg RECTAL Q4H PRN PRN PRN Reason: Pain Score 1-10/Temp > 100.7 F Acetaminophen (Tylenol Liquid) 650 mg GT Q6H PRN PRN PRN Reason: Pain Score 1-10/Temp > 100.7 F Albuterol Sulfate (Ventolin Aerosols) 2.5 mg INHALATION Q2H PRN PRN PRN Reason: Dyspnea, wheezing Ascorbic Acid (Vitamin C) 500 mg GT DAILY [facility] Last Admin: 09/08/19 09:37 Dose: 500 mg Documented by: Baclofen (Lioresal) 20 mg GT Q6 [facility] Last Admin: 09/08/19 18:03 Dose: 20 mg Documented by: Cholecalciferol (Vitamin D (25mcg)) 1,000 unit GT DAILY [facility] Last Admin: 09/08/19 09:37 Dose: 1,000 unit Documented by: Doxazosin Mesylate (Cardura) 2 mg GT DAILY [facility] Last Admin: 07/17/20 09:42 Dose: 2 mg Documented by: Enoxaparin Sodium (Lovenox) 70 mg SC Q12@0600,1800 [facility] Last Admin: 09/08/19 18:03 Dose: 70 mg Documented by: Ferrous Sulfate (Ferrous Sulfate Syrup) 300 mg GT DAILY [facility] Last Admin: 09/08/19 09:36 Dose: 300 mg Documented by: Gabapentin (Gabapentin) 250 mg GT Q6 [facility] Last Admin: 09/08/19 18:03 Dose: 250 mg Documented by: Glucagon () 1 mg IM .X1 PRN PRN Reason: Hypoglycemia Sodium Chloride () 250 mls @ 15 mls/hr IV .[id number] PRN PRN Reason: Saline Flush Last Infusion: 09/08/19 05:40 Dose: 0 mls/hr Documented by: Sodium Chloride () 250 mls @ 15 mls/hr IV .[id number] PRN PRN Reason: Additional IVPB Infusion Enteral Nutritional Formula (Jevity 1.5) 1,000 mls @ 50 mls/hr GT .Q20H [facility] Last Admin: 09/08/19 18:19 Dose: 50 mls/hr Documented by: Piperacillin Sod/Tazobactam (Sod 3.375 gm/ Sodium Chloride) 50 mls @ 12.5 mls/hr IV Q8 [facility] Last Admin: 09/08/19 21:01 Dose: 12.5 mls/hr Documented by: Lactobacillus Acidophilus (Acidophilus) 1 tablet GT DAILY [facility] Last Admin: 09/08/19 09:36 Dose: 1 tablet Documented by: Lansoprazole (Lansoprazole) 15 mg GT BID [facility] Last Admin: 09/08/19 22:25 Dose: 15 mg Documented by: Loratadine (Claritin) 10 mg GT DAILY [facility] Last Admin: 09/08/19 09:36 Dose: 10 mg Documented by: Lorazepam (Ativan) 1 mg GT Q8H PRN PRN PRN Reason: AGITATION Last Admin: 09/06/19 06:22 Dose: 1 mg Documented by: Metoclopramide HCl (Reglan) 10 mg GT TID [facility] Last Admin: 09/08/19 22:25 Dose: 10 mg Documented by: Ondansetron HCl (Zofran Odt) 4 mg GT DAILY PRN PRN PRN Reason: NAUSEA Ondansetron HCl (Zofran) 4 mg IV Q8H PRN PRN PRN Reason: NAUSEA/VOMITING Last Admin: 09/08/19 20:57 Dose: 4 mg Documented by: Phenobarbital (Phenobarbital) 60 mg GT BID [facility] Last Admin: 09/08/19 22:36 Dose: 60 mg Documented by: Polyethylene Glycol (Miralax) 17 gm GT TID [facility] Last Admin: 09/08/19 22:25 Dose: 17 gm Documented by: Potassium Chloride (Potassium Chl Soln) 15 meq GT DAILY PRN PRN PRN Reason: WITH LASIX Prochlorperazine Edisylate (Compazine Iv) 5 mg IV Q4H PRN PRN PRN Reason: Breakthrough Nausea/Vomiting Simethicone (Mylicon) 120 mg GT TIDPC [facility] Last Admin: 09/08/19 18:05 Dose: 120 mg Documented by: Sodium Chloride () 10 - 40 ml IV UD PRN PRN Reason: SALINE FLUSH Last Admin: 09/08/19 20:58 Dose: 10 ml Documented by: Medical Necessity - Tobacco Use Smoking Status: Never smoker Route of nutrition/ use of supplements: [] Nutritional Intake: [] IV Site: [] Augustin Catheter: [] - Assessment/Plan Antibiotics: [] Assessment/Plan: [] Active and Suspected Problems (Last Reviewed 08/03/19 @ 13:[address] Maury Waite MD) Sepsis (Acute) Cellulitis (Acute) cellulitis - much improved, off pressors, no further fever, out of icu. CT show ed no deep infection. Sputum with possible pseudomonas. Cont zosyn, day 3 today. Will get repeat cxr in AM to help determine if pneumonia or colonization present. Will follow, d/w primary team
[2019-09-08] MEDS: Ondansetron 4 MG/2 ML Vial IV (20:57)
[2019-09-08] MEDS: 0.9% Saline Lock 10 ML Syringe IV (20:58)
[2019-09-09] VITALS (7 sets, daily range): BP systolic 88–131; BP diastolic 41–79; PULSE 63–90; RESP 12–16; TEMP 37–37.6; O2SAT 93–97
[2019-09-09] MEDS: Baclofen 10 MG Tablet 20 MG GT ×4 (00:13→18:23)
[2019-09-09] MEDS: GABAPENTIN 250 MG/5 ML SOLUTION GT ×4 (00:15→18:22)
[2019-09-09] MEDS: Enoxaparin 80 MG/0.8 ML Syringe 70 MG SC (06:30)
[2019-09-09] MEDS: Polyethylene Glycol 3350 17 GM PACKET GT ×2 (06:30→14:39)
[2019-09-09] MEDS: Metoclopramide 10 MG Tablet GT ×2 (06:30→14:39)
[2019-09-09 07:05] LABS: Anion Gap 8 (5-15); BUN 5 mg/dL (7-18); BUN/Creat Ratio 14.4 RATIO (10-20); Calcium,Total 8.3 mg/dL (8.5-10.1); Chloride 110 mmol/L (98-107); Creatinine, Serum 0.35 mg/dL (0.70-1.30); EST Glomerular Filtration Rate 301 mL/min (>60); Est Glom Filt Rate - Afr Amer 364 mL/min (>60); Estimated Creatinine Clearance 204.37 ml/min; Glucose 79 mg/dL (74-106); Potassium 3.5 mmol/L (3.5-5.1); Sodium Level 143 mmol/L (136-145)
[2019-09-09 07:31] LABS: Red Blood Count 3.64 M/mm3 (4.6-6.2); White Blood Count 4.6 K/mm3 (4.4-11.0)
[2019-09-09 07:32] LABS: Basophil% 0.4 % (0-1); Eosinophils% 2.6 % (0-5); Hematocrit 32.5 % (40-54); Hemoglobin 10.4 g/dL (13.0-16.5); Mean Corpuscular Hgb 28.6 pg (27.0-32.0); Mean Corpuscular Volume 89.3 fL (80-94); Mean Platelet Vol. 11.2 fl (6.2-12.0); Monocyte% 12.7 % (0-10); Neutrophil % 45.8 % (47-70); Platelet Count 104 K/mm3 (150-450); RBC Distribution Width CV 15.1 % (11.6-14.6); RBC Distribution Width SD 48.8 fl (35.1-43.9)
[2019-09-09 07:33] LABS: Absolute Lymphocyte Count 1.69 X10^3/uL (0.83-4.51); Absolute Neutrophil Count 2.1 X10^3/uL (2.0-7.7); Basophil# 0.02 X10^3/uL; Eosinophil# 0.12 X10^3/uL; Lymphocyte # 1.69 X10^3/ul (4.0); Monocyte# 0.58 X10^3/uL; Neutrophil # 2.09 X10^3/uL (2.7-7.7)
[2019-09-09 07:37] LABS: NRBC Flagged by Analyzer 5.8 % (0-5)
--- NOTE | 2019-09-09 07:51 | NURSING ---
Pt. had episode of vomiting after being suctioned orally with Yankauer. Meds were given approx. 1 hour prior.
--- NOTE | 2019-09-09 08:21 | RAD_ITS ---
HISTORY: Hypoxia. ADDITIONAL HISTORY: None provided. EXAMINATION/TECHNIQUE: XR Chest 1 View AP/PA Number of images including paperwork: 1 COMPARISON: 09/05/2019 FINDINGS: LUNGS AND PLEURA: Low lung volumes. Elevated right hemidiaphragm. Mild improvement in lung aeration. Decrease in perihilar opacities with some residual right perihilar opacities remaining. CARDIAC SILHOUETTE: Stable. MEDIASTINUM AND DEMETRIUS: Stable. UPPER ABDOMEN: Gaseous bowel distention in the upper abdomen. SKELETON AND SOFT TISSUES: No acute findings. OTHER DEVICES AND HARDWARE: A tracheostomy tube and right chest port appears similar. RAD/Chest 1 View (Portable) IMPRESSION: Slight improvement in lung aeration with some residual right perihilar opacities which could be related to atelectasis or infiltrates. at 0620 Reported and signed by: Yanira Navarro MD Electronically Signed: Yanira Navarro MD at 6:19 EDT Tel , Service support ,
[2019-09-09] MEDS: Ondansetron 4 MG/2 ML Vial IV (09:13)
[2019-09-09] MEDS: Ferrous Sulfate 300 MG/5 ML UDC GT (10:21)
[2019-09-09] MEDS: Ascorbic Acid 500 MG Tablet GT (10:21)
[2019-09-09] MEDS: Lansoprazole 15 MG Capsule.DR GT (10:21)
[2019-09-09] MEDS: Doxazosin 1 MG Tablet 2 MG GT (10:21)
[2019-09-09] MEDS: Loratadine 10 MG Tablet GT (10:21)
[2019-09-09] MEDS: Simethicone 40MG/0.6ML Bottle 120 MG GT ×3 (10:23→18:23)
[2019-09-09] MEDS: Phenobarbital 20 MG/5 ML UDC 60 MG GT (10:32)
--- NOTE | 2019-09-09 11:08 | DCINST_ITS ---
- Discharge Diagnoses Current Active Problems: Current Active and Chronic Problems (Last Reviewed 08/03/19 @ 13:[address] Maury Waite MD) Sepsis (Acute) Cellulitis (Acute) You will use the following diet at home:: Other - resume previous diet Allergies/Adverse Reactions: Allergies cisapride monohydrate [From Propulsid] Allergy (Verified 08/19/19 18:46) Rash codeine Adverse Reaction (Verified 08/19/19 18:46) hallucinations metronidazole [From Flagyl] Adverse Reaction (Verified 08/19/19 18:46) Rash morphine Adverse Reaction (Verified 08/19/19 18:46) Hallucinations dust Allergy (Uncoded 08/19/19 18:46) Other Medications to take at Discharge Simethicone 40MG/0.6ML [Mylicon] 40 mg GT 4X/DAY 11/09/13 Pantoprazole Sodium [Protonix] 20 ml GT BID 08/09/14 Phenobarbital 60 mg GT BID 02/19/17 Cetirizine HCl [Zyrtec] 10 ml GT DAILY 02/04/18 Lactobacillus Acidophilus [Acidophilus] 1 cap GT DAILY 02/04/18 metoclopramide HCl 5 mg/5 mL oral solution 10 mg GT TID ml 09/16/18 Lorazepam [Ativan] 1 mg GT Q8 PRN 10/08/18 Cholecalciferol (Vitamin D3) [Vitamin D3] 5 ml GT DAILY 12/25/18 Cough Assist 1 dose .ROUTE .MEDSUPPLY 12/25/18 Ferrous Sulfate 5 ml GT DAILY 12/25/18 oxygen concentrator 1 dose .ROUTE .MEDSUPPLY 12/25/18 Baclofen [Ozobax] 20 mg GT Q6H 05/09/19 Lactose-Reduced Food/Fiber [Jevity 1.2 [place] Liquid] 50 ml GT DAILY 05/09/19 Ondansetron HCl [Zofran] 5 ml PO DAILY PRN 05/09/19 Polyethylene Glycol 3350 [Miralax] 17 gm GT TID 05/09/19 Doxazosin Mesylate [Cardura] 2 mg GT DAILY #30 tab 07/11/19 enoxaparin 80 mg/0.8 mL subcutaneous syringe 70 mg SUBCUT Q12@0600,1800 08/03/19 gabapentin 250 mg/5 mL (5 mL) oral solution 250 mg PO Q6H ml 08/03/19 Ascorbic Acid [Vitamin C] 500 mg GT DAILY 08/04/19 levoFLOXacin tablet [Levaquin tablet] 500 mg GT DAILY #7 tab 09/09/19 The following prescriptions were given: levoFLOXacin tablet [Levaquin tablet] 500 mg GT DAILY #7 tab Transmission Status: Pending to [facility] Primary Care Physician: Timmy Conn MD [Primary Care Provider] - Please follow up with your Primary Care Physician in: at regular office visit Test Results: Test results from this visit will be discussed in further detail at your follow- up appointment, if applicable.
--- NOTE | 2019-09-09 18:13 | PCM.DC.SUM ---
Discharge Date and Diagnosis - Problem List Patient Problems: Active and Suspected Problems (Last Reviewed 08/03/19 @ 13:[address] Maury Waite MD) Sepsis (Acute) Cellulitis (Acute) Date of Admission: 09/05/19 Date of Discharge: 09/09/19 - Primary Discharge Diagnosis Acute Problems: Active Problems (Last Reviewed 08/03/19 @ 13:[address] Maury Waite MD) #1 sepsis secondary to cellulitis of the right leg #2 cellulitis of the right leg #3 Pseudomonas colonization of the sputum #4 shock secondary to adverse reaction from Ativan administration #5 chronic hypoxic respiratory failure #6 anemia of unknown etiology requiring blood transfusion #7 Hemoccult positive stool-etiology unclear #8 cerebral palsy/developmental delay/mental retardation #9 seizure disorder #10 thrombocytopenia etiology unclear #11 leukopenia-etiology unclear Septic shock was ruled out - Secondary Discharge Diagnosis Chronic Problems: Chronic Problems (Last Reviewed 08/03/19 @ 13:[address] Maury Waite MD) Thrombocytopenia (Chronic) Pulmonary embolism on left (Chronic 06/14/19) Nonrheumatic mitral valve prolapse (Chronic) Iron deficiency anemia (Chronic) Chronic respiratory failure (Chronic) Cerebral palsy (Chronic) Quadriplegic Severe mental retardation Chronic constipation PEG tube Edema (Chronic) Hospital Course and Treatment Operations: None Procedures: None, Blood transfusion Summary of Care Provided: The patient is a 39 year old M was seen in the emergency room at [facility] after being brought in for evaluation of redness of his right inner thigh that his parents noted at home. They noted the patient was also breathing faster than usual and he had an increased pulse rate. Patient has a history of cerebral palsy, seizure disorder, and mental retardation and is being cared for at home. Work-up in the emergency room revealed a normal white blood cell count, hemoglobin was low at 10, platelets were low at 64,000. Chemistries were unremarkable, lactic acid was 1.3, chest x-ray showed chronic changes but no acute process. On examination patient had red excoriated areas on his right inner thigh. Patient was admitted to PCU for sepsis, he was initially placed on Rocephin and vancomycin, within a few hours patient spiked a very high temperature and became increasingly tachycardic, he was given fluids and was given IV Ativan due to agitation. Over the next several hours, patient's blood pressure declined and he had to be moved to ICU overnight and placed on pressors. The next morning, patient was more alert and he did not require pressors and was moved back to PCU. It was felt that in the end, patient's hypotension may have been caused by Ativan administration on the floor for the patient's agitation. Patient was seen in consultation by critical care and infectious diseases, sputum from the patient grew out Pseudomonas but there was no evidence of focal infiltrate on the patient's chest x-ray and the patient did not have any more temperature elevations. It was decided to finish out a course of antibiotics for the Pseudomonas. Patient was given 2 units of packed red blood cells for anemia during his hospital stay-etiology of the anemia was unknown although the patient did have Hemoccult positive stool, he had no anahy blood in his colostomy bag. On 09/09/2019, patient was seen and examined:General: Patient is alert, he shows obvious evidence of developmental delay and cerebral palsy which is chronic HEENT: Atraumatic, PERRLA, Normocephalic Oral: Moist Mucosa Neck: Supple, No JVD, Trachea Midline, - - Tracheostomy is present Lungs: Clear to auscultation, Normal air movement, No rhonchi, No wheeze Cardiovascular: Regular rate, Regular Rhythm, Normal S1, Normal S2, No murmurs Abdomen: Bowel Sounds Present, Soft, Non Tender, Non-Distended, - - Colostomy and PEG tube in place Extremities: No cyanosis, Capillary Refill Less than 3 Seconds, Edema - Neurolyse edema is noted over both lower extremities along with contractures of the legs, there is generalized redness noted of the right upper inner leg, muscle wasting which is severe is noted in both lower extremities Skin: No rashes, No breakdown Neurological: - - Patient is lethargic, he does not move his upper or lower extremities Psych/Mental Status: - - Patient is alert, he remains nonverbal which is chronic, he does not appear to be in any distress at this time. Patient's Augustin catheter was removed on 09/09/2019, he did not void for several hours and his bladder was scanned and he only had 150 cc of urine in his bladder and it was felt that the patient could be discharged home in stable condition-patient's mother agreed with this approach. Again patient was not felt to be in septic shock during his admission at [facility]. Patient Problems: Active and Suspected Problems (Last Reviewed 08/03/19 @ 13:[address] Maury Waite MD) Sepsis (Acute) Cellulitis (Acute) - Physical Exam Vitals/I&O's: Vital Signs Temp Pulse Resp BP Pulse Ox 98.9 F 77 14 94/57 L 95 09/09/19 16:30 09/09/19 16:30 09/09/19 16:30 09/09/19 16:30 09/09/19 16:30 Oxygen Flow Rate (L/min) 4 Oxygen Delivery Method Mechanical Ventilator Weight: 80.1 kg Body Mass Index (BMI) 33.0 Finger Stick Blood Glucose 132 Intake and Output for Last 24 Hours 09/07/19 09/08/19 09/09/19 23:59 23:59 23:59 Intake Total 5607.55 / 6251.55 4810.0 / 4810.0 1017.25 / 1017.25 Output Total 3900 / 4475 3425 / 3425 700 / 700 Balance 1707.55 / 1776.55 1385.0 / 1385.0 317.25 / 317.25 Microbiology Past 72 Hours 09/07/19 06:20 Sputum, Induced/Lukens Gram Stain - Final 09/07/19 06:20 Sputum, Induced/Lukens Respiratory Culture - Final Pseudomonas aeroginosa 09/05/19 21:35 Blood Culture (Wb) - Left Hand Blood Culture - Preliminary No growth in 48 hours. 09/05/19 21:00 Blood Culture (Wb) - Port Blood Culture - Preliminary No growth in 48 hours. Laboratory Results 09/09/19 05:52: WBC Cancelled, Corrected WBC Cancelled, RBC Cancelled, Hgb Cancelled, Hct Cancelled, MCV Cancelled, MCH Cancelled, MCHC Cancelled, RDW Std Deviation Cancelled, RDW Coeff of Emilee Cancelled, Plt Count Cancelled, MPV Cancelled, Immature Gran % (Auto) Cancelled, Neut % (Auto) Cancelled, Lymph % (Auto) Cancelled, [place] % (Auto) Cancelled, Eos % (Auto) Cancelled, Baso % (Auto) Cancelled, Absolute Neuts (auto) Cancelled, Absolute Lymphs (auto) Cancelled, Total Counted Cancelled, Neutrophils % (Manual) Cancelled, Band Neutrophils % Cancelled, Lymphocytes % (Manual) Cancelled, Monocytes % (Manual) Cancelled, Eosinophils % (Manual) Cancelled, Basophils % (Manual) Cancelled, Metamyelocytes % Cancelled, Myelocytes % Cancelled, Promyelocytes % Cancelled, Blast Cells % Cancelled, Plasma Cell % (Manual) Cancelled, Other Cells % Cancelled, Nucleated RBC % Cancelled, Nucleated RBCs/100 WBC Cancelled, Differential Comment Cancelled, Diff Path Review Cancelled, Hypersegmented Neuts Cancelled, Atypical Lymphocytes Cancelled, Reactive Lymphocytes Cancelled, Smudge Cells Cancelled, Toxic Granulation Cancelled, Toxic Vacuolation Cancelled, Dohle Bodies Cancelled, Yvonne Rods Cancelled, Platelet Estimate Cancelled, Plt Morphology Comment Cancelled, RBC Morphology Cancelled, Polychromasia Cancelled, Hypochromasia Cancelled, Poikilocytosis Cancelled, Basophilic Stippling Cancelled, Anisocytosis Cancelled, Microcytosis Cancelled, Macrocytosis Cancelled, Spherocytes Cancelled, Sickle Cells Cancelled, Target Cells Cancelled, Tear Drop Cells Cancelled, Ovalocytes Cancelled, Stomatocytes Cancelled, Harris-Alcova Bodies Cancelled, Norman Cells Cancelled, Bite Cells Cancelled, Crenated Cell Cancelled, Acanthocytes (Spur) Cancelled, Rouleaux Cancelled, Schistocytes Cancelled 09/09/19 05:52: Sodium 143, Potassium 3.5, Chloride 110 H, Carbon Dioxide 25.0, Anion Gap 8, BUN 5 L, Creatinine 0.35 L, Estim Creat Clear Calc 204.37, Est GFR (MDRD) Af Amer 364, Est GFR (MDRD) Non-Af 301, BUN/Creatinine Ratio 14.4, Glucose 79, Calcium 8.3 L 09/09/19 05:52: WBC 4.6, RBC 3.64 L, Hgb 10.4 L, Hct 32.5 L, MCV 89.3, MCH 28.6, MCHC 32.0 D, RDW Std Deviation 48.8 H, RDW Coeff of Emilee 15.1 H, Plt Count 104 L, MPV 11.2, Immature Gran % (Auto) 1.500 H, Neut % (Auto) 45.8 L, Lymph % (Auto) 37.0, [place] % (Auto) 12.7 H, Eos % (Auto) 2.6, Baso % (Auto) 0.4, Absolute Neuts (auto) 2.1, Absolute Lymphs (auto) 1.69, Nucleated RBC % 5.8 H Current Medications Acetaminophen (Tylenol) 650 mg RECTAL Q4H PRN PRN PRN Reason: Pain Score 1-10/Temp > 100.7 F Acetaminophen (Tylenol Liquid) 650 mg GT Q6H PRN PRN PRN Reason: Pain Score 1-10/Temp > 100.7 F Albuterol Sulfate (Ventolin Aerosols) 2.5 mg INHALATION Q2H PRN PRN PRN Reason: Dyspnea, wheezing Ascorbic Acid (Vitamin C) 500 mg GT DAILY [facility] Last Admin: 09/09/19 10:21 Dose: 500 mg Documented by: Baclofen (Lioresal) 20 mg GT Q6 [facility] Last Admin: 09/09/19 11:41 Dose: 20 mg Documented by: Cholecalciferol (Vitamin D (25mcg)) 1,000 unit GT DAILY [facility] Last Admin: 09/09/19 10:22 Dose: 1,000 unit Documented by: Doxazosin Mesylate (Cardura) 2 mg GT DAILY [facility] Last Admin: 09/09/19 10:21 Dose: 2 mg Documented by: Enoxaparin Sodium (Lovenox) 70 mg SC Q12@0600,1800 [facility] Last Admin: 09/09/19 17:59 Dose: Not Given Documented by: Ferrous Sulfate (Ferrous Sulfate Syrup) 300 mg GT DAILY [facility] Last Admin: 09/09/19 10:21 Dose: 300 mg Documented by: Gabapentin (Gabapentin) 250 mg GT Q6 [facility] Last Admin: 09/09/19 11:41 Dose: 250 mg Documented by: Glucagon () 1 mg IM .X1 PRN PRN Reason: Hypoglycemia Sodium Chloride () 250 mls @ 15 mls/hr IV .[id number] PRN PRN Reason: Saline Flush Last Infusion: 09/09/19 05:28 Dose: 0 mls/hr Documented by: Sodium Chloride () 250 mls @ 15 mls/hr IV .[id number] PRN PRN Reason: Additional IVPB Infusion Enteral Nutritional Formula (Jevity 1.5) 1,000 mls @ 50 mls/hr GT .Q20H [facility] Last Admin: 09/08/19 18:19 Dose: 50 mls/hr Documented by: Piperacillin Sod/Tazobactam (Sod 3.375 gm/ Sodium Chloride) 50 mls @ 12.5 mls/hr IV Q8 [facility] Last Admin: 09/09/19 14:39 Dose: Not Given Documented by: Lactobacillus Acidophilus (Acidophilus) 1 tablet GT DAILY [facility] Last Admin: 09/09/19 10:21 Dose: 1 tablet Documented by: Lansoprazole (Lansoprazole) 15 mg GT BID [facility] Last Admin: 09/09/19 10:21 Dose: 15 mg Documented by: Loratadine (Claritin) 10 mg GT DAILY [facility] Last Admin: 09/09/19 10:21 Dose: 10 mg Documented by: Lorazepam (Ativan) 1 mg GT Q8H PRN PRN PRN Reason: AGITATION Last Admin: 09/06/19 06:22 Dose: 1 mg Documented by: Metoclopramide HCl (Reglan) 10 mg GT TID [facility] Last Admin: 09/09/19 14:39 Dose: 10 mg Documented by: Ondansetron HCl (Zofran Odt) 4 mg GT DAILY PRN PRN PRN Reason: NAUSEA Ondansetron HCl (Zofran) 4 mg IV Q8H PRN PRN PRN Reason: NAUSEA/VOMITING Last Admin: 09/09/19 09:13 Dose: 4 mg Documented by: Phenobarbital (Phenobarbital) 60 mg GT BID [facility] Last Admin: 09/09/19 10:32 Dose: 60 mg Documented by: Polyethylene Glycol (Miralax) 17 gm GT TID [facility] Last Admin: 09/09/19 14:39 Dose: 17 gm Documented by: Potassium Chloride (Potassium Chl Soln) 15 meq GT DAILY PRN PRN PRN Reason: WITH LASIX Prochlorperazine Edisylate (Compazine Iv) 5 mg IV Q4H PRN PRN PRN Reason: Breakthrough Nausea/Vomiting Simethicone (Mylicon) 120 mg GT TIDPC [facility] Last Admin: 09/09/19 14:39 Dose: 120 mg Documented by: Sodium Chloride () 10 - 40 ml IV UD PRN PRN Reason: SALINE FLUSH Last Admin: 09/08/19 20:58 Dose: 10 ml Documented by: Home Medications: Medications to take at Discharge Simethicone 40MG/0.6ML [Mylicon] 40 mg GT 4X/DAY 11/09/13 Pantoprazole Sodium [Protonix] 20 ml GT BID 08/09/14 Phenobarbital 60 mg GT BID 02/19/17 Cetirizine HCl [Zyrtec] 10 ml GT DAILY 02/04/18 Lactobacillus Acidophilus [Acidophilus] 1 cap GT DAILY 02/04/18 metoclopramide HCl 5 mg/5 mL oral solution 10 mg GT TID ml 09/16/18 Lorazepam [Ativan] 1 mg GT Q8 PRN 10/08/18 Cholecalciferol (Vitamin D3) [Vitamin D3] 5 ml GT DAILY 12/25/18 Cough Assist 1 dose .ROUTE .MEDSUPPLY 12/25/18 Ferrous Sulfate 5 ml GT DAILY 12/25/18 oxygen concentrator 1 dose .ROUTE .MEDSUPPLY 12/25/18 Baclofen [Ozobax] 20 mg GT Q6H 05/09/19 Lactose-Reduced Food/Fiber [Jevity 1.2 [place] Liquid] 50 ml GT DAILY 05/09/19 Ondansetron HCl [Zofran] 5 ml PO DAILY PRN 05/09/19 Polyethylene Glycol 3350 [Miralax] 17 gm GT TID 05/09/19 Doxazosin Mesylate [Cardura] 2 mg GT DAILY #30 tab 07/11/19 enoxaparin 80 mg/0.8 mL subcutaneous syringe 70 mg SUBCUT Q12@0600,1800 08/03/19 gabapentin 250 mg/5 mL (5 mL) oral solution 250 mg PO Q6H ml 08/03/19 Ascorbic Acid [Vitamin C] 500 mg GT DAILY 08/04/19 levoFLOXacin tablet [Levaquin tablet] 500 mg GT DAILY #7 tab 09/09/19 Following Prescrptions Were Given to Patient: levoFLOXacin tablet [Levaquin tablet] 500 mg GT DAILY #7 tab Transmission Status: Received by [facility] Primary Care Physician: Timmy Conn MD [Primary Care Provider] - Please follow up with your Primary Care Physician in: at regular office visit Please Follow Up With: Timmy Conn MD Disposition: Home Minutes spent on discharge:: 33 Patient Condition:: Stable Medical Necessity - Tobacco Use Smoking Status: Never smoker Meaningful Use Info Meaningful Use Diagnoses (Choose all that apply): None applicable Inpatient E&M: 46981 Disch Hosp
== END 2019-09-09 21:00 | disposition home or self-care (01) | DRG 871 ==
LOC: ED 21:08 → PCU 23:04 → ICU 09-06 14:52 → PCU 09-07 09:18
PROVIDERS: Admitting Provider Family Medicine; Emergency Provider Emergency Medicine; PCP Family Medicine; Visit Provider Internal Medicine
DX: A41.9 Sepsis, unspecified organism (principal); G80.0 Spastic quadriplegic cerebral palsy; L03.115 Cellulitis of right lower limb; J96.11 Chronic respiratory failure with hypoxia; J96.12 Chronic respiratory failure with hypercapnia; F72 Severe intellectual disabilities; Z99.11 Dependence on respirator [ventilator] status; T88.6XXA Anaphylactic reaction due to adverse effect of correct drug or medicament properly administered, initial encounter; D61.818 Other pancytopenia; T42.4X5A Adverse effect of benzodiazepines, initial encounter; Y92.239 Unspecified place in hospital as the place of occurrence of the external cause; G40.909 Epilepsy, unspecified, not intractable, without status epilepticus; E87.6 Hypokalemia; R45.1 Restlessness and agitation; D50.9 Iron deficiency anemia, unspecified; R19.5 Other fecal abnormalities; K21.9 Gastro-esophageal reflux disease without esophagitis; E66.9 Obesity, unspecified; Z22.39 Carrier of other specified bacterial diseases; Z93.0 Tracheostomy status; Z93.1 Gastrostomy status; Z93.3 Colostomy status; Z79.01 Long term (current) use of anticoagulants; Z79.899 Other long term (current) drug therapy; Z86.711 Personal history of pulmonary embolism
CPT/HCPCS: 31720; 36415; 36591; 71045; 73701; 74177; 80048; 80053; 80202; 82274; 82962; 83605; 83735; 85014; 85018; 85025; 86850; 86900; 86901; 86920; 86922; 87040; 87070; 87077; 87184; 87186; 87205; 87635; 93971; 94002; 94003; 94762; 97802; 99251; 99285; G2023; J1756; J7030; J7040; J7050; P9016; Q9967; A4216; G0463; J0295; J2405; J2916; U0003

== ENCOUNTER → 2019-09-20 | Outpatient (CLI) | payer BC, MEDICAID, SELFPAY ==
[2019-09-06 00:08] VITALS: BMI 33.0
[2019-09-21 08:52] LABS: Absolute Lymphocyte Count 1.56 X10^3/uL (0.83-4.51); Absolute Neutrophil Count 1.5 X10^3/uL (2.0-7.7); Basophil# 0.03 X10^3/uL; Basophil% 0.8 % (0-1); Eosinophil# 0.11 X10^3/uL; Eosinophils% 3.1 % (0-5); Hematocrit 37.2 % (40-54); Hemoglobin 11.8 g/dL (13.0-16.5); Lymphocyte # 1.56 X10^3/ul (4.0); Lymphocyte % 43.9 % (19-41); Mean Corp Hgb Conc 31.7 g/dL (32-36); Mean Corpuscular Hgb 28.8 pg (27.0-32.0); Mean Corpuscular Volume 90.7 fL (80-94); Monocyte# 0.35 X10^3/uL; Monocyte% 9.9 % (0-10); NRBC Flagged by Analyzer 0 % (0-5); Neutrophil # 1.49 X10^3/uL (2.7-7.7); Platelet Count 144 K/mm3 (150-450); RBC Distribution Width CV 14.6 % (11.6-14.6); RBC Distribution Width SD 47.9 fl (35.1-43.9); White Blood Count 3.6 K/mm3 (4.4-11.0)
[2019-09-21 08:53] LABS: Ferritin 297 ng/mL (26-388); Iron 117 ug/dL (65-175); Iron Binding Capacity,Total 290 ug/dL (250-450); PERCENT IRON SATURATION 40.3 % (15.0-55.0)
== END | disposition home or self-care (01) ==
LOC: LABSPEC 09-21 08:24
PROVIDERS: PCP Family Medicine; Referring Provider Family Medicine; Visit Provider Family Medicine
DX: K92.2 Gastrointestinal hemorrhage, unspecified (principal)
CPT/HCPCS: 82728; 83540; 83550; 85025

== ENCOUNTER 2019-09-26 12:45 | Emergency (ER) | payer BC, MEDICAID, SELFPAY ==
[2019-09-06 00:08] VITALS: BMI 33.0
[2019-09-26 12:47] VITALS: BP 95/67; PULSE 95; RESP 14; TEMP 36.8; O2SAT 92; BMI 32.4
[2019-09-26 12:52] VITALS: BP 95/67; PULSE 95; RESP 14; TEMP 36.8; O2SAT 92
--- NOTE | 2019-09-26 13:01 | RAD_ITS ---
STUDY: X-RAY CHEST REASON FOR EXAM: Male, 39 years old. INCREASED SHORTNESS OF BREATH, AND HR TECHNIQUE: Single AP portable view of the chest. COMPARISON: Comparison is made with prior study dated 09/05/2019. FINDINGS: EKG electrodes are seen. A tracheostomy tube is in situ as well as a right portacatheter with the tip in the right atrium. Limited inspiratory effort. Stable examination. There is no demonstrated pleural abnormality. Cardiomegaly. Normal mediastinum and rachelle. Normal visualized pulmonary arteries. Normal visualized aortic arch and descending thoracic aorta. Normal visualized thoracic spine. Normal visualized ribs, clavicles, and shoulders. There is no demonstrated abnormality of the visualized soft tissue structures of the upper abdomen. RAD/Chest 1 View (Portable) IMPRESSION: Stable examination. Electronically Signed: Matti Greer, at 14:34 EDT , Service support ,
--- NOTE | 2019-09-26 13:02 | CT_ITS ---
STUDY: CT ABDOMEN AND PELVIS WITHOUT CONTRAST REASON FOR EXAM: Male, 39 years old. ABDOMINAL DISTENTION/SOB/ELEV HEARTRATE. Hx of QUADRIPLEGIA, CEREBRAL PALSY RADIATION DOSAGE (If Supplied By Facility): CTDIvol = ( 18.32 ) mGy, DLP = ( 947.58 ) mGycm TECHNIQUE: Transaxial images were obtained from the dome of the diaphragm to the symphysis pubis without oral contrast, and without intravenous contrast. Sagittal and coronal images were reconstructed. Individualized dose optimization techniques were used for this CT. COMPARISON: Comparison is made with prior study dated 09/06/2019. FINDINGS: A right-sided portacatheter is seen with the tip in the superior vena cava. Mild degree of residual increased markings at the lung bases although this has improved as compared to prior study. The visualized portions of the heart are within normal limits. Normal liver. The gallbladder is contracted. Possible small gallstone along the dependent portion of the gallbladder lumen. Normal spleen. Normal pancreas. Normal bilateral adrenal glands. Normal right kidney. Normal left kidney. Normal visualized stomach. A jejunostomy tube is seen within the proximal jejunum. An ostomy is seen in the left lower quadrant with herniation of fat and nondistended bowel. Increased soft tissue density is seen along the anterior abdominal wall in the right paraumbilical region. This is unchanged. Surgical anastomoses at the sigmoid colon. Stable appearance of the rectum. Appears to be fecal impaction in the rectum. The appendix is visualized and appears normal. Normal abdominal aorta. Normal inferior vena cava. Normal retroperitoneum. Normal urinary bladder. There is a small umbilical hernia containing fat. Moderate size right inguinal hernia containing fat. Levoscoliosis. CT/Abdomen/Pelvis without Cont IMPRESSION: Stable examination. Electronically Signed: Matti Greer, at 14:51 EDT , Service support ,
[2019-09-26 14:00] LABS: Absolute Lymphocyte Count 1.18 X10^3/uL (0.83-4.51); Absolute Neutrophil Count 2.1 X10^3/uL (2.0-7.7); Basophil# 0.01 X10^3/uL; Basophil% 0.3 % (0-1); Eosinophil# 0.04 X10^3/uL; Eosinophils% 1.1 % (0-5); Hematocrit 35.9 % (40-54); Hemoglobin 11.5 g/dL (13.0-16.5); Lymphocyte # 1.18 X10^3/ul (4.0); Lymphocyte % 32.1 % (19-41); Mean Corpuscular Hgb 28.3 pg (27.0-32.0); Mean Corpuscular Volume 88.2 fL (80-94); Mean Platelet Vol. 11.3 fl (6.2-12.0); Monocyte# 0.39 X10^3/uL; Monocyte% 10.6 % (0-10); NRBC Flagged by Analyzer 0 % (0-5); Neutrophil # 2.06 X10^3/uL (2.7-7.7); Neutrophil % 55.9 % (47-70); Platelet Count 115 K/mm3 (150-450); RBC Distribution Width CV 14.2 % (11.6-14.6); RBC Distribution Width SD 45.3 fl (35.1-43.9); Red Blood Count 4.07 M/mm3 (4.6-6.2); White Blood Count 3.7 K/mm3 (4.4-11.0)
[2019-09-26 14:13] LABS: ALB/GLOB Ratio 0.7 RATIO (0.9-2.4); AST(SGOT) 35 U/L (15-37); Alanine Aminotransfer ALT/SGPT 52 U/L (16-61); Albumin, Serum 3.4 g/dL (3.2-5.0); Alkaline Phosphatase 198 U/L (45-117); Anion Gap 3 (5-15); BUN 19 mg/dL (7-18); BUN/Creat Ratio 54.4 RATIO (10-20); Calcium,Total 8.7 mg/dL (8.5-10.1); Chloride 105 mmol/L (98-107); Creatinine, Serum 0.35 mg/dL (0.70-1.30); EST Glomerular Filtration Rate 300 mL/min (>60); Est Glom Filt Rate - Afr Amer 363 mL/min (>60); Estimated Creatinine Clearance 204.37 ml/min; Globulin 5.1 g/dL (2.2-4.2); Glucose 83 mg/dL (74-106); Lipase 260 U/L (73-393); Potassium 3.9 mmol/L (3.5-5.1); Protein, Total 8.5 g/dL (6.4-8.2); Sodium Level 139 mmol/L (136-145)
[2019-09-26 14:23] LABS: Lactic Acid 0.5 mmol/L (0.4-1.9)
[2019-09-26 14:45] VITALS: BP 96/57; PULSE 70; RESP 14; O2SAT 96
--- NOTE | 2019-09-26 15:04 | ED.VISSUMM ---
- ER Visit Summary Date of Service: 09/26/19 Chief Complaint: [Shortness of breath] History of Present Illness: The patient is a 39 M [presents to the emergency department complaint of shortness of breath that started 2 days ago and has been somewhat intermittent. Patient will intermittently take some big gasps. Father states that pulse ox had dropped intermittently into the 70s this morning. Patient's heart rate also jumps intermittently into the 130s. Patient was recently admitted to the hospital and treated for cellulitis in his right leg but is finished his antibiotics and apparently his right leg looks much better. He is not been otherwise coughing or running a fever. Patient has significant history including cerebral palsy, history of pulmonary emboli, respiratory failure, seizure disorder. Patient is nonverbal. Patient is currently on enoxaparin. Mother also states that his abdomen has been more distended and he has been very gassy.] Physical Examination: [HEENT-PERRLA, EOMI. Cranial nerves II through XII grossly intact. TMs clear. Mucous membranes moist. No adenopathy. Cardiovascular-regular rate and rhythm without murmur or ectopy Lungs-coarse breath sounds bilaterally. No accessory muscle use or retractions. Respirations are unlabored. Patient does have a tracheostomy. No stridor noted. Abdomen-normoactive bowel sounds, soft. Patient appears to have some mild discomfort on palpation of the abdomen. There is no rebound or rigidity. Extremities-intact ?4, normal range of motion, normal pulses, atraumatic] Test Results: [CBC with differential obtained showed a white of 3.7, hemoglobin 11.5, hematocrit 36, plates 115. Chemistries unremarkable. LFTs unremarkable. Lipase was 260. Lactate was 0.5. Chest x-ray showed nothing acute. CT scan of the abdomen pelvis showed a stable exam without evidence for bowel obstruction or perforation.] Emergency Department Course and Treatment: [Patient's port was accessed in his right chest and he was given normal saline.] Treatment Plan: [I advised to follow-up with primary care physician in 3 to 5 days. Advised to return if increasing shortness of breath or condition should worsen anyway. At this point his vital signs are stable and he looks well. He does not appear toxic.] Disposition: [Discharged home in stable condition] Impression: [Dyspnea-etiology uncertain Abdominal distention/gas] This note was generated with Dragon dictation software. It may contain incorrect words, spelling, and punctuation that were not noted in review of the chart prior to signing ED Disposition - Plan for ED Patient: Referrals: Timmy Conn MD [Primary Care Provider] -
--- NOTE | 2019-09-26 15:07 | ED.DEP ---
ED Disposition - Plan for ED Patient: Instructions: ED Dyspnea Referrals: Timmy Conn MD [Primary Care Provider] - 3-5 Days
== END 2019-09-26 15:26 | disposition home or self-care (01) ==
LOC: ED 13:10
PROVIDERS: Emergency Provider Emergency Medicine; PCP Family Medicine
DX: R06.00 Dyspnea, unspecified (principal); R14.0 Abdominal distension (gaseous); G80.9 Cerebral palsy, unspecified; G40.909 Epilepsy, unspecified, not intractable, without status epilepticus; Z86.711 Personal history of pulmonary embolism; Z79.899 Other long term (current) drug therapy
CPT/HCPCS: 36591; 71045; 74176; 80053; 83605; 83690; 85025; 87040; 87635; 99285; U0003

== ENCOUNTER → 2019-10-11 | Outpatient (CLI) | payer BC, MEDICAID, SELFPAY ==
[2019-09-26 12:47] VITALS: BMI 32.4
[2019-10-11 08:23] LABS: Absolute Lymphocyte Count 1.67 X10^3/uL (0.83-4.51); Absolute Neutrophil Count 1.8 X10^3/uL (2.0-7.7); Basophil# 0.01 X10^3/uL; Basophil% 0.2 % (0-1); Eosinophil# 0.22 X10^3/uL; Eosinophils% 5.5 % (0-5); Hemoglobin 10.8 g/dL (13.0-16.5); Lymphocyte # 1.67 X10^3/ul (4.0); Lymphocyte % 41.6 % (19-41); Mean Corp Hgb Conc 31.8 g/dL (32-36); Mean Corpuscular Hgb 28.5 pg (27.0-32.0); Mean Corpuscular Volume 89.7 fL (80-94); Mean Platelet Vol. 10.8 fl (6.2-12.0); Monocyte# 0.35 X10^3/uL; Monocyte% 8.7 % (0-10); NRBC Flagged by Analyzer 0 % (0-5); Neutrophil # 1.75 X10^3/uL (2.7-7.7); Neutrophil % 43.8 % (47-70); Platelet Count 101 K/mm3 (150-450); RBC Distribution Width CV 14.5 % (11.6-14.6); RBC Distribution Width SD 46.4 fl (35.1-43.9); Red Blood Count 3.79 M/mm3 (4.6-6.2)
[2019-10-11 08:38] LABS: Anion Gap 3 (5-15); BUN 15 mg/dL (7-18); BUN/Creat Ratio 43.9 RATIO (10-20); Calcium,Total 8.5 mg/dL (8.5-10.1); Chloride 104 mmol/L (98-107); Creatinine, Serum 0.34 mg/dL (0.70-1.30); EST Glomerular Filtration Rate 307 mL/min (>60); Est Glom Filt Rate - Afr Amer 372 mL/min (>60); Glucose 84 mg/dL (74-106); Potassium 3.6 mmol/L (3.5-5.1); Sodium Level 138 mmol/L (136-145)
== END | disposition home or self-care (01) ==
LOC: LABSPEC 08:09
PROVIDERS: PCP Family Medicine; Referring Provider Internal Medicine Cardiovascular Disease; Visit Provider Internal Medicine Cardiovascular Disease
DX: I27.82 Chronic pulmonary embolism (principal); R00.0 Tachycardia, unspecified; D69.6 Thrombocytopenia, unspecified; I34.1 Nonrheumatic mitral (valve) prolapse; D50.9 Iron deficiency anemia, unspecified; J96.10 Chronic respiratory failure, unspecified whether with hypoxia or hypercapnia; G80.9 Cerebral palsy, unspecified; R60.9 Edema, unspecified
CPT/HCPCS: 80048; 85025; 85379

== ENCOUNTER 2019-10-30 20:40 | Emergency (ER) | payer BC, MEDICAID, SELFPAY ==
[2019-10-24 13:19] VITALS: BMI 31.7
[2019-10-30 20:41] VITALS: BP 152/100; PULSE 80; RESP 16; TEMP 35.9; O2SAT 96; BMI 32.5
--- NOTE | 2019-10-30 21:28 | ED.DCSUM_ITS ---
History of Present Illness Chief Complaint: Abd Pain Informant: Family Onset: Today Timing: Waxes and wanes Quality: discomfort Location: unk Current Severity: better Maximum Severity: Moderate Worsened by: unk Relieved by: ativan given tonight Associated Symptoms: none; no vomiting. good colostomy output. no fevers. Narrative: Patient is brought by his parents out of concern for increased abdominal pain today. This patient has had pain in his abdomen off-and-on for years, they state that currently it has been an issue for 5 or 6 months approximately. They have had CT scans in the ED that did not show specific pathology, except for a fat-containing umbilical hernia, however at a visit with Dr. Simon recently, they learned that the most recent CT 1 month ago also showed a small parastomal hernia that was not noted on the CT, and it was questioned whether it could be related to his colicky discomfort. In the recent past, he has had pain along with decreased ostomy output, then his pain would subside and the output would resume his normal, hence questioning the parastomal hernias involvement potentially. Today, his colostomy output has been good and normal, approximately 4-500 cc of nonbloody stool. Later tonight when he was in pain, he postures with his upper extremities, and in the process rubs his abdomen, and sometimes causes minor trauma to the tissue within his colostomy, and frequently causes minor bleeding as is present currently. He has had no vomiting, and I confirmed with the parents that he has had processes in the past when he has vomited, he does not have a Femi fundoplication. He has had no fevers. They gave him some Ativan prior to coming here, which finally allowed him to rest, and prior to receiving that mom palpated his abdomen and felt a very hard area that she believes may be the parastomal hernia, and because of that they come here tonight concerned about an emergent hernia issue. - Past Medical History (1) Parastomal hernia Status: Chronic (2) Cerebral palsy Status: Chronic Comment: Quadriplegic Severe mental retardation Chronic constipation PEG tube (3) Chronic respiratory failure Status: Chronic (4) Iron deficiency anemia Status: Chronic (5) Nonrheumatic mitral valve prolapse Status: Chronic (6) Pulmonary embolism on left Status: Chronic Past Medical History - Allergies and Home Meds Allergies/Adverse Reactions: Allergies cisapride monohydrate [From Propulsid] Allergy (Verified 10/24/19 13:31) Rash codeine Adverse Reaction (Verified 10/24/19 13:31) hallucinations metronidazole [From Flagyl] Adverse Reaction (Verified 10/24/19 13:31) Rash morphine Adverse Reaction (Verified 10/24/19 13:31) Hallucinations dust Allergy (Uncoded 09/26/19 12:47) Other Primary Care Physician: Timmy Conn MD [Primary Care Provider] - Surgical History: - - Baclofen pump, colostomy, G-tube, tracheostomy Lives: With Family Smoking Status: Never smoker - Family History Maternal Family History: Family History (Last Reviewed 10/24/19 @ 13:19 by Promise Donnelly) Mother Hypertension Hepatitis C Father Hypertension Atrial fibrillation CAD (coronary artery disease) Family History: Reports: - - Mother with history of hypertension hepatitis C. Paternal Family History: Family History (Last Reviewed 10/24/19 @ 13:19 by Promise Donnelly) Mother Hypertension Hepatitis C Father Hypertension Atrial fibrillation CAD (coronary artery disease) Family History: Reports: - - Father with history of hypertension, coronary disease and atrial fibrillation. Review of Systems ROS: Unable to Obtain Physical Exam Vital Signs/Narrative: Vital Signs Temp Pulse Resp BP Pulse Ox 10/30/19 20:41 96.7 F L 80 16 152/100 H 96 General: Well nourished, Well developed, No Acute Distress - somnolent, arousable Head: Normocephalic, Atraumatic Neck: Supple, - - FROM bilat Cardiovascular: Regular rate, Regular rhythm. Negative for: Tachycardia Respiratory: No distress Abdomen: Soft, Nontender, Nondistended, Normal bowel sounds, - - Patient's colostomy site is benign. There is some friable mucosa within the site, and a very small amount of blood nearby in the colostomy bag without any active bleeding. Medial to this, caudal to the umbilicus, abdomen is soft, where the mother claims it was hard as a rock. At one point the patient grimaces and now this area is more firm. There is no overlying erythema or abnormal skin changes. It returns to being soft after the patient is more lethargic and resting. There is firm scar tissue in the right upper quadrant, and similar firm abdominal wall just caudal to this without any overlying erythema or signs of infection. Extremities: Edema - BLE, symmetric Skin: Normal color, No rash, No Trauma Neurological: Lethargic - and arousable, - - can move BUE Diagnostic/Tx/Re-eval - Medical Decision Making I discussed with Dr. Simon, concerning the CT findings and his exam. He confirms that as I am seen on the CT, the parastomal hernia is still within his colostomy bag surface area, just about an inch medial from the actual colostomy opening. This is all very lateral to where the mother is palpating the patient's abdomen and feeling this hard area that we felt together in the emergency department. In this area on the CT, and the abdominal wall there is chronic scar tissue, and as the family confirms, he had multiple baclofen pumps in this region and this is probably related. He had sequential abdominal CT scans showing stability of this increased density which is likely scar tissue and not acute infection. Furthermore, given that he is grimacing and flexing his abdominal wall, creating a firm area that is palpable, and transient, I reassured them that the firmness is likely created by the combination of him f lexing his abdominal wall beneath the scar tissue that is present. Given all of this, I do not think there is any indication to CT him again tonight to look for a bowel obstruction, since he clearly does not have one given his excellent colostomy output and lack of vomiting or other symptoms. It is certainly possible that today he was having pain consistent with what ever is causing his chronic pain, and I do not believe it is an emergent condition at this time. The parents are reassured and agree that he does not need a repeat abdominal CT scan or other studies at this time, and they were encouraged to return for any further issues that they feel needs reevaluated. They are comfortable with that plan. ED Disposition - Plan for ED Patient: Disposition: Home or Assisted Living Diagnosis: Intermittent abdominal pain, Parastomal hernia Instructions: ED Unknown Causes of Abdominal Pain Male Referrals: Timmy Conn MD [Primary Care Provider] - surgeon, your [Other] (as scheduled on 11/14/2019)
[2019-10-30 21:45] VITALS: BP 145/83
== END 2019-10-30 22:06 | disposition home or self-care (01) ==
PROVIDERS: Emergency Provider Emergency Medicine; PCP Family Medicine
DX: R10.9 Unspecified abdominal pain (principal); K43.5 Parastomal hernia without obstruction or gangrene; G80.8 Other cerebral palsy; F72 Severe intellectual disabilities; Z93.3 Colostomy status; J96.10 Chronic respiratory failure, unspecified whether with hypoxia or hypercapnia; I34.1 Nonrheumatic mitral (valve) prolapse; D50.9 Iron deficiency anemia, unspecified; Z79.899 Other long term (current) drug therapy; Z86.711 Personal history of pulmonary embolism
CPT/HCPCS: 99284

== ENCOUNTER 2019-11-07 15:23 | Outpatient (RCR) | payer BC, MEDICAID, SELFPAY ==
[2019-10-24 13:19] VITALS: BMI 31.7
== END 2019-11-22 23:59 ==
LOC: NS 15:23
PROVIDERS: PCP Family Medicine; Visit Provider Family Medicine
DX: Z71.3 Dietary counseling and surveillance (principal); Z78.9 Other specified health status; Z93.1 Gastrostomy status; K21.9 Gastro-esophageal reflux disease without esophagitis; K92.2 Gastrointestinal hemorrhage, unspecified; K43.3 Parastomal hernia with obstruction, without gangrene
CPT/HCPCS: 97802

== ENCOUNTER → 2019-11-07 | Outpatient (CLI) | payer BC, MEDICAID, SELFPAY ==
[2019-10-30 20:41] VITALS: BMI 32.5
[2019-11-07 10:22] LABS: Absolute Lymphocyte Count 1.66 X10^3/uL (0.83-4.51); Absolute Neutrophil Count 1.5 X10^3/uL (2.0-7.7); Basophil# 0.01 X10^3/uL; Basophil% 0.3 % (0-1); Eosinophil# 0.11 X10^3/uL; Eosinophils% 3.1 % (0-5); Hematocrit 35.3 % (40-54); Hemoglobin 11.4 g/dL (13.0-16.5); Lymphocyte # 1.66 X10^3/ul (4.0); Lymphocyte % 46.4 % (19-41); Mean Corp Hgb Conc 32.3 g/dL (32-36); Mean Corpuscular Hgb 28.4 pg (27.0-32.0); Mean Corpuscular Volume 87.8 fL (80-94); Mean Platelet Vol. 10.7 fl (6.2-12.0); Monocyte# 0.26 X10^3/uL; Monocyte% 7.3 % (0-10); NRBC Flagged by Analyzer 0 % (0-5); Neutrophil # 1.53 X10^3/uL (2.7-7.7); Neutrophil % 42.6 % (47-70); Platelet Count 116 K/mm3 (150-450); RBC Distribution Width CV 14.7 % (11.6-14.6); RBC Distribution Width SD 47.5 fl (35.1-43.9); Red Blood Count 4.02 M/mm3 (4.6-6.2); White Blood Count 3.6 K/mm3 (4.4-11.0)
[2019-11-07 10:39] LABS: Anion Gap 4 (5-15); BUN 19 mg/dL (7-18); BUN/Creat Ratio 62.1 RATIO (10-20); Calcium,Total 8.7 mg/dL (8.5-10.1); Chloride 102 mmol/L (98-107); Creatinine, Serum 0.31 mg/dL (0.70-1.30); EST Glomerular Filtration Rate 349 mL/min (>60); Est Glom Filt Rate - Afr Amer 422 mL/min (>60); Glucose 84 mg/dL (74-106); Potassium 4.2 mmol/L (3.5-5.1); Sodium Level 137 mmol/L (136-145)
== END | disposition home or self-care (01) ==
PROVIDERS: PCP Family Medicine; Referring Provider Internal Medicine Cardiovascular Disease; Visit Provider Internal Medicine Cardiovascular Disease
DX: R00.0 Tachycardia, unspecified (principal); D69.6 Thrombocytopenia, unspecified; I26.99 Other pulmonary embolism without acute cor pulmonale; I34.1 Nonrheumatic mitral (valve) prolapse; D50.9 Iron deficiency anemia, unspecified; J96.10 Chronic respiratory failure, unspecified whether with hypoxia or hypercapnia; G80.9 Cerebral palsy, unspecified; R60.9 Edema, unspecified
CPT/HCPCS: 80048; 85025

== ENCOUNTER → 2019-12-08 08:46 | Outpatient (CLI) | payer BC, MEDICAID, SELFPAY ==
[2019-12-08 08:58] LABS: Absolute Neutrophil Count 1.6 X10^3/uL (2.0-7.7); Basophil# 0.01 X10^3/uL; Basophil% 0.3 % (0-1); Eosinophils% 2.7 % (0-5); Hematocrit 32.4 % (40-54); Hemoglobin 10.4 g/dL (13.0-16.5); Lymphocyte % 43.8 % (19-41); Mean Corp Hgb Conc 32.1 g/dL (32-36); Mean Corpuscular Hgb 28.9 pg (27.0-32.0); Mean Platelet Vol. 10.9 fl (6.2-12.0); Monocyte# 0.36 X10^3/uL; Monocyte% 9.9 % (0-10); NRBC Flagged by Analyzer 0 % (0-5); Neutrophil # 1.58 X10^3/uL (2.7-7.7); Neutrophil % 43.3 % (47-70); Platelet Count 124 K/mm3 (150-450); RBC Distribution Width CV 14.8 % (11.6-14.6); RBC Distribution Width SD 48.9 fl (35.1-43.9); White Blood Count 3.7 K/mm3 (4.4-11.0)
[2019-12-08 09:15] LABS: Anion Gap 0 (5-15); BUN 15 mg/dL (7-18); BUN/Creat Ratio 46.9 RATIO (10-20); Chloride 106 mmol/L (98-107); Creatinine, Serum 0.32 mg/dL (0.70-1.30); EST Glomerular Filtration Rate 331 mL/min (>60); Est Glom Filt Rate - Afr Amer 401 mL/min (>60); Glucose 71 mg/dL (74-106); Potassium 3.7 mmol/L (3.5-5.1); Sodium Level 140 mmol/L (136-145)
== END ==
PROVIDERS: PCP Family Medicine; Referring Provider Internal Medicine Cardiovascular Disease; Visit Provider Internal Medicine Cardiovascular Disease
DX: R00.0 Tachycardia, unspecified (principal); D69.6 Thrombocytopenia, unspecified; I26.99 Other pulmonary embolism without acute cor pulmonale; I34.1 Nonrheumatic mitral (valve) prolapse; D50.9 Iron deficiency anemia, unspecified; J96.10 Chronic respiratory failure, unspecified whether with hypoxia or hypercapnia; G80.9 Cerebral palsy, unspecified; R60.0 Localized edema
CPT/HCPCS: 80048; 85025

== ENCOUNTER 2019-12-19 08:43 | Emergency (ER) | payer BC, MEDICAID, SELFPAY ==
[2019-12-19] VITALS (8 sets, daily range): BP systolic 119–151; BP diastolic 79–89; PULSE 85–99; RESP 14–20; TEMP 36.3–38; O2SAT 92–97; BMI 29.7
--- NOTE | 2019-12-19 09:04 | RAD_ITS ---
STUDY: X-RAY CHEST REASON FOR EXAM: Male, 39 years old. INCREASED SOB, FEVER, LOW O2 TECHNIQUE: Single AP portable view of the chest. COMPARISON: Comparison is made with prior study dated 09/26/2019. FINDINGS: A tracheostomy tube is in situ. The tip is at 2.7 cm proximal to the clark. A right-sided portacatheter is seen with the tip in the right atrium. EKG electrodes are seen. The lungs are clear and expanded. There is no demonstrated pleural abnormality. Normal size heart. Normal mediastinum and rachelle. Normal visualized pulmonary arteries. Normal visualized aortic arch and descending thoracic aorta. Normal visualized thoracic spine. Normal visualized ribs, clavicles, and shoulders. There is no demonstrated abnormality of the visualized soft tissue structures of the upper abdomen. RAD/Chest 1 View (Portable) IMPRESSION: No acute abnormality is seen. Electronically Signed: Matti Greer, at 10:24 EDT , Service support ,
--- NOTE | 2019-12-19 09:04 | EKG12_ITS ---
Test Reason : SOB Blood Pressure : / mmHG Vent. Rate : 105 BPM Atrial Rate : 105 BPM P-R Int : 130 ms QRS Dur : 098 ms QT Int : 348 ms P-R-T Axes : 047 -05 136 degrees QTc Int : 459 ms Sinus tachycardia Incomplete right bundle branch block ST & T wave abnormality, consider anterolateral ischemia Abnormal ECG Confirmed by ENRIKE VARGAS, BESS ([id number]), manuscript editor JOSEMANUEL TORRES ([id number]) on 12/21/2019 9:02:02 AM Referred By: JUAN Confirmed By:BESS CALVERT MD
--- NOTE | 2019-12-19 09:09 | ED.DCSUM_ITS ---
History of Present Illness Chief Complaint: Shortness of Breath Informant: Family, Naphthalene Still Operator Narrative: Mom called EMS today for the evaluation of fever and low oxygen levels. This is a 39-year-old male who is trached and has cerebral palsy. Mom states that he has been restless yesterday and during the night was noted to develop fever. He has had increased secretions that they are suctioning. The color and consistency have not changed of the secretions but the volume has increased. Mom states that they have been increasing oxygen demands. They deny any areas of cellulitis that he has had in the past. Mom notes that he has grown out Pseudomonas in his lungs before. The patient 4 months has had black flecks in his colostomy bag. They have seen a surgeon in [place] who wanted to do a endoscopy and colonoscopy in preparation for a parastomal hernia repair but that has not happened. - Past Medical History (1) Cerebral palsy Status: Chronic Comment: Quadriplegic Severe mental retardation Chronic constipation PEG tube (2) Chronic respiratory failure Status: Chronic (3) Iron deficiency anemia Status: Chronic (4) Nonrheumatic mitral valve prolapse Status: Chronic (5) Pulmonary embolism on left Status: Chronic Past Medical History - Allergies and Home Meds Allergies/Adverse Reactions: Allergies cisapride monohydrate [From Propulsid] Allergy (Verified 12/19/19 10:06) Rash codeine Adverse Reaction (Verified 12/19/19 10:06) hallucinations metronidazole [From Flagyl] Adverse Reaction (Verified 12/19/19 10:06) Rash morphine Adverse Reaction (Verified 12/19/19 10:06) Hallucinations dust Allergy (Uncoded 12/19/19 10:06) Other Primary Care Physician: Timmy Conn MD [Primary Care Provider] - Prior records reviewed: Yes Surgical History: - - Baclofen pump, colostomy, G-tube, tracheostomy Lives: With Family Smoking Status: Never smoker Alcohol: None Drugs: None - Family History Maternal Family History: Family History (Last Reviewed 10/24/19 @ 13:19 by Promise Donnelly) Mother Hypertension Hepatitis C Father Hypertension Atrial fibrillation CAD (coronary artery disease) Family History: Reports: - - Mother with history of hypertension hepatitis C. Paternal Family History: Family History (Last Reviewed 10/24/19 @ 13:19 by Promise Donnelly) Mother Hypertension Hepatitis C Father Hypertension Atrial fibrillation CAD (coronary artery disease) Family History: Reports: - - Father with history of hypertension, coronary disease and atrial fibrillation. Review of Systems General: Reports: Fever, Malaise. Denies: Chills, Sweats Eyes: Denies: Visual changes - bilaterally, Diplopia ENT: Denies: Rhinorrhea, Sore throat Cardiovascular: Denies: Chest pain, Palpitations Respiratory: Reports: Dyspnea, Cough, Sputum. Denies: Dyspnea on exertion Gastrointestinal: Denies: Abdominal pain, Nausea, Vomiting, Diarrhea, Melena, Hematochezia Genitourinary: Denies: Dysuria, Hematuria, Frequency Musculoskeletal: Denies: Back pain, Extremity Pain Skin: Denies: Rash, Wounds Neurological: Denies: Headache, Weakness, Numbness Physical Exam Vital Signs/Narrative: Vital Signs Temp Pulse Resp BP Pulse Ox 12/19/19 08:44 100.4 F H 96 18 119/79 92 Inital Vital Signs reviewed: Yes General: Well nourished, Well developed, No Acute Distress Head: Normocephalic, Atraumatic Eyes: Perrl, EOMI ENT: Moist mucous membranes, No rhinorrhea, - - Facial flushing Neck: Supple, Nontender, - - Trach site clean dry intact Cardiovascular: Regular rate, Regular rhythm, No murmurs Respiratory: No distress, CTA bilaterally, Chest nontender Abdomen: Soft, Nontender, Nondistended, Normal bowel sounds Back: Nontender, Normal Inspection Extremities: Nontender Skin: Normal color, No rash Neurological: Normal Strength, - - Patient does open his eyes to touch and conversation. Nonverbal. Diagnostic/Tx/Re-eval Clinical Impression(s) from Imaging Studies Chest X-Ray 12/19/19 09:04 IMPRESSION: No acute abnormality is seen. Electronically Signed: Matti Greer, at 10:24 EDT , Service support , Laboratory Last Values WBC 4.5 K/mm3 (4.4-11.0) 12/19/19 09:15 RBC 3.71 M/mm3 (4.6-6.2) L 12/19/19 09:15 Hgb 11.0 g/dL (13.0-16.5) L 12/19/19 09:15 Hct 33.2 % (40-54) L 12/19/19 09:15 MCV 89.5 fL (80-94) 12/19/19 09:15 MCH 29.6 pg (27.0-32.0) 12/19/19 09:15 MCHC 33.1 g/dL (32-36) 12/19/19 09:15 RDW Std Deviation 47.6 fl (35.1-43.9) H 12/19/19 09:15 RDW Coeff of Emilee 14.6 % (11.6-14.6) 12/19/19 09:15 Plt Count 126 K/mm3 (150-450) L 12/19/19 09:15 MPV 10.7 fl (6.2-12.0) 12/19/19 09:15 Immature Gran % (Auto) 0.200 % (0.0-0.9) 12/19/19 09:15 Neut % (Auto) 59.4 % (47-70) 12/19/19 09:15 Lymph % (Auto) 24.6 % (19-41) 12/19/19 09:15 [place] % (Auto) 12.5 % (0-10) H 12/19/19 09:15 Eos % (Auto) 2.9 % (0-5) 12/19/19 09:15 Baso % (Auto) 0.4 % (0-1) 12/19/19 09:15 Absolute Neuts (auto) 2.7 X10^3/uL (2.0-7.7) 12/19/19 09:15 Absolute Lymphs (auto) 1.10 X10^3/uL (0.83-4.51) 12/19/19 09:15 Nucleated RBC % 0 % (0-5) 12/19/19 09:15 PT 13.6 SECONDS (11.7-14.9) 12/19/19 09:15 INR 1.1 12/19/19 09:15 APTT 48.8 Seconds (24.1-36.2) H 12/19/19 09:15 Sodium 139 mmol/L (136-145) 12/19/19 09:15 Potassium 3.6 mmol/L (3.5-5.1) 12/19/19 09:15 Chloride 105 mmol/L (98-107) 12/19/19 09:15 Carbon Dioxide 27.0 mmol/L (21.0-32.0) 12/19/19 09:15 Anion Gap 7 (5-15) 12/19/19 09:15 BUN 11 mg/dL (7-18) 12/19/19 09:15 Creatinine 0.38 mg/dL (0.70-1.30) L 12/19/19 09:15 Estim Creat Clear Calc 188.23 ml/min 12/19/19 09:15 Est GFR (MDRD) Af Amer 326 mL/min (>60) 12/19/19 09:15 Est GFR (MDRD) Non-Af 269 mL/min (>60) 12/19/19 09:15 BUN/Creatinine Ratio 28.7 RATIO (10-20) H 12/19/19 09:15 Glucose 90 mg/dL (74-106) 12/19/19 09:15 Lactic Acid 0.6 mmol/L (0.4-1.9) 12/19/19 09:15 Calcium 8.9 mg/dL (8.5-10.1) 12/19/19 09:15 Total Bilirubin 0.30 mg/dL (0.20-1.00) 12/19/19 09:15 AST 17 U/L (15-37) 12/19/19 09:15 ALT 26 U/L (16-61) 12/19/19 09:15 Alkaline Phosphatase 185 U/L (45-117) H 12/19/19 09:15 Troponin I < 0.015 ng/mL (<0.045) 12/19/19 09:15 Total Protein 8.4 g/dL (6.4-8.2) H 12/19/19 09:15 Albumin 3.3 g/dL (3.2-5.0) 12/19/19 09:15 Globulin 5.1 g/dL (2.2-4.2) H 12/19/19 09:15 Albumin/Globulin Ratio 0.6 RATIO (0.9-2.4) L 12/19/19 09:15 Urine Color Yellow (Yellow) 12/19/19 09:55 Urine Clarity Clear (Clear) 12/19/19 09:55 Urine pH 8.0 (5.0 - 8.0) 12/19/19 09:55 Ur Specific [place] 1.010 (1.002-1.030) 12/19/19 09:55 Urine Protein Negative mg/dl (Negative) 12/19/19 09:55 Urine Glucose (UA) Normal mg/dl (Normal) 12/19/19 09:55 Urine Ketones Negative mg/dl (Negative) 12/19/19 09:55 Urine Occult Blood Negative /ul (Negative) 12/19/19 09:55 Urine Nitrite Negative (Negative) 12/19/19 09:55 Urine Bilirubin Negative mg/dL (Negative) 12/19/19 09:55 Urine Urobilinogen Normal mg/dl (Normal) 12/19/19 09:55 Ur Leukocyte Esterase Negative /ul (Negative) 12/19/19 09:55 Urine RBC 0 SEEN /hpf (0-5) 12/19/19 09:55 Urine WBC 0 SEEN /hpf (0-5) 12/19/19 09:55 Ur Squamous Epith Cells 0 SEEN /hpf (0-5) 12/19/19 09:55 Urine Bacteria RARE /hpf (None Seen) 12/19/19 09:55 Urine Mucus 0 SEEN /hpf (<or=2+) 12/19/19 09:55 - EKG Initial EKG Interpretation: Sinus Tachycardia - EKG demonstrates a sinus tachycardia at a rate of 105. No ectopy - Medical Decision Making Respiratory panel is positive for the rhinovirus. Case was discussed with the hospitalist as well as with card room manager who knows the patient well. Plan will be to obtain Covid PCR and if negative discharged home on a prescription for Levaquin and follow-up with pulmonology. Care the patient will be turned over to the oncoming physician for check of lab. ED Disposition - Plan for ED Patient: Disposition: Home or Assisted Living Diagnosis: Acute bronchitis due to Rhinovirus Instructions: Acute Bronchitis Prescriptions: levoFLOXacin tablet [Levaquin tablet] 750 mg PO DAILY #4 tab Prescription Printed Referrals: Timmy Conn MD [Primary Care Provider] - As Needed Jacek Monsalve MD [STAFF PHYSICIAN] - As soon as possible
[2019-12-19 09:30] LABS: Absolute Neutrophil Count 2.7 X10^3/uL (2.0-7.7); Basophil# 0.02 X10^3/uL; Basophil% 0.4 % (0-1); Eosinophil# 0.13 X10^3/uL; Eosinophils% 2.9 % (0-5); Hematocrit 33.2 % (40-54); Lymphocyte % 24.6 % (19-41); Mean Corp Hgb Conc 33.1 g/dL (32-36); Mean Corpuscular Hgb 29.6 pg (27.0-32.0); Mean Corpuscular Volume 89.5 fL (80-94); Mean Platelet Vol. 10.7 fl (6.2-12.0); Monocyte# 0.56 X10^3/uL; Monocyte% 12.5 % (0-10); NRBC Flagged by Analyzer 0 % (0-5); Neutrophil # 2.65 X10^3/uL (2.7-7.7); Neutrophil % 59.4 % (47-70); Platelet Count 126 K/mm3 (150-450); RBC Distribution Width CV 14.6 % (11.6-14.6); RBC Distribution Width SD 47.6 fl (35.1-43.9); Red Blood Count 3.71 M/mm3 (4.6-6.2); White Blood Count 4.5 K/mm3 (4.4-11.0)
[2019-12-19 09:34] LABS: International Normalized Ratio 1.1; Prothrombin Time (Protime)PT. 13.6 SECONDS (11.7-14.9)
[2019-12-19 09:36] LABS: Partial Thromboplast Time 48.8 Seconds (24.1-36.2)
[2019-12-19 09:44] LABS: ALB/GLOB Ratio 0.6 RATIO (0.9-2.4); AST(SGOT) 17 U/L (15-37); Alanine Aminotransfer ALT/SGPT 26 U/L (16-61); Albumin, Serum 3.3 g/dL (3.2-5.0); Alkaline Phosphatase 185 U/L (45-117); Anion Gap 7 (5-15); BUN 11 mg/dL (7-18); BUN/Creat Ratio 28.7 RATIO (10-20); Calcium,Total 8.9 mg/dL (8.5-10.1); Chloride 105 mmol/L (98-107); Creatinine, Serum 0.38 mg/dL (0.70-1.30); EST Glomerular Filtration Rate 269 mL/min (>60); Est Glom Filt Rate - Afr Amer 326 mL/min (>60); Estimated Creatinine Clearance 188.23 ml/min; Globulin 5.1 g/dL (2.2-4.2); Glucose 90 mg/dL (74-106); Potassium 3.6 mmol/L (3.5-5.1); Protein, Total 8.4 g/dL (6.4-8.2); Sodium Level 139 mmol/L (136-145)
[2019-12-19] MEDS: Acetaminophen 650 MG/20 ML UDC GT (09:56)
[2019-12-19 10:04] LABS: Lactic Acid 0.6 mmol/L (0.4-1.9)
[2019-12-19 10:16] LABS: Mucous, Urine 0 SEEN /hpf (<or=2+); Red Blood Cells-Urine 0 SEEN /hpf (0-5); Squamous Epithelial Cells - UA 0 SEEN /hpf (0-5); White Blood Cells 0 SEEN /hpf (0-5)
[2019-12-19 10:30] LABS: Color, Urine Yellow (Yellow); Glucose, Dipstick Normal (Normal); Ketone-Dipstick Negative (Negative); Leukocyte Esterase-Dipstick Negative /ul (Negative); Nitrite-Dipstick Negative (Negative); Occult Blood-Urine Negative /ul (Negative); Protein-Dipstick Negative (Negative); Urine Bilirubin Dipstick Negative (Negative); Urine Clarity Clear (Clear); Urine Urobilinogen Normal (Normal)
[2019-12-19 10:36] LABS: Bacteria RARE /hpf (None Seen)
[2019-12-19] MEDS: 0.9% Normal Saline 1,000 ML 999 ML IV (11:25)
[2019-12-19] MEDS: levoFLOXacin IV 750 MG/150 ML BAG 100 MG IV (12:19)
--- NOTE | 2019-12-19 15:19 | ED.RN ---
PORT FLUSHED WITH HEPARIN FLUSH PRIOR TO DC
--- NOTE | 2019-12-19 16:28 | ED.RN ---
PT WAS ON HOME VENT- ON NRB/TRACH FOR TRANSPORT AND SATTING HIGH 90S
== END 2019-12-19 16:29 | disposition home or self-care (01) ==
PROVIDERS: Emergency Provider Emergency Medicine; PCP Family Medicine
DX: J20.6 Acute bronchitis due to rhinovirus (principal); J96.10 Chronic respiratory failure, unspecified whether with hypoxia or hypercapnia; G80.8 Other cerebral palsy; F72 Severe intellectual disabilities; D50.9 Iron deficiency anemia, unspecified; I34.1 Nonrheumatic mitral (valve) prolapse; Z93.3 Colostomy status; Z93.0 Tracheostomy status; Z79.899 Other long term (current) drug therapy; Z86.711 Personal history of pulmonary embolism
CPT/HCPCS: 36591; 71045; 80053; 81001; 83605; 84484; 85025; 85610; 85730; 87040; 87070; 87077; 87086; 87186; 87205; 87426; 87633; 87635; 93005; 96365; 96366; 96367; 99285; J7030; A4216; U0002

== ENCOUNTER 2019-12-30 00:05 | Emergency (ER) | payer BC, MEDICAID, SELFPAY ==
[2019-12-19 08:44] VITALS: BMI 29.7
[2019-12-30 00:07] VITALS: BP 102/73; PULSE 71; RESP 16; TEMP 36; O2SAT 100; BMI 33.6
--- NOTE | 2019-12-30 00:53 | RAD_ITS ---
STUDY: X-RAY - ABDOMEN/PELVIS REASON FOR EXAM: Male, 39 years old. G-Tube replacement. TECHNIQUE: Frontal view COMPARISON: None. FINDINGS: Normal visualized lung bases. There is a percutaneous gastrostomy tube. The tube is in proper position. There is contrast in the tube and the stomach. There is NO obstruction or leakage. There is an unremarkable bowel gas pattern. There is no demonstrated free abdominal air. The visualized liver, spleen and kidneys are grossly normal in size and morphology. Normal soft tissue structures. Normal visualized osseous structures. RAD/Abdomen Single View (Portable) IMPRESSION: There is a percutaneous gastrostomy tube. The tube is in proper position. There is contrast in the tube and the stomach. There is NO obstruction or leakage. Electronically Signed: Pa Devine MD at 1:48 EST , Service support ,
--- NOTE | 2019-12-30 01:37 | ED.VISSUMM ---
- ER Visit Summary Date of Service: 12/30/19 Chief Complaint: G-tube replacement History of Present Illness: The patient is a 39 M who presents for G-tube replacement. Parents states the patient's PEG tube came out earlier tonight. Parents state they noticed that in place and were giving feedings through it at 9:00 PM tonight. Family states that he stopped the feedings around 10 PM tonight. Family noticed that the patient's G-tube was out around 11:30 PM tonight. Family attempted to replace the G-tube but was unsuccessful. Family brought the G-tube in with them. Patient has a history of cerebral palsy and is nonverbal. Physical Examination: Vital signs are stable. Patient is afebrile. Patient is in no acute distress. Oral mucosa is pink and moist. Neck is supple. Trachea is midline. Heart was regular rate and rhythm. Lungs are clear and equal bilaterally. Abdomen is soft. Bowel sounds are normal. G-tube site is clean and dry. There is no surrounding erythema or signs of infection. Test Results: Gastrografin x-ray was obtained. The G-tube appeared to be in place on my interpretation. Emergency Department Course and Treatment: The G-tube was replaced and the balloon was inflated with 6 cc of normal saline. Patient tolerated the procedure well. Parents were instructed to continue tube feedings as previously instructed. Parents were instructed to return if worse in any way. Parents understood and were agreeable with the plan. All questions were answered. Disposition: Discharge home Impression: Dislodged feeding tube This note was generated with [employer] dictation software. It may contain incorrect words, spelling, and punctuation that were not noted in review of the chart prior to signing ED Disposition - Plan for ED Patient: Disposition: Home or Assisted Living Diagnosis: Dislodged gastrostomy tube Instructions: ED GASTROSTOMY TUBE REPLACEMENT Referrals: Timmy Conn MD [Primary Care Provider] -
[2019-12-30 01:59] VITALS: PULSE 96; RESP 18; O2SAT 96
== END 2019-12-30 02:01 | disposition home or self-care (01) ==
PROVIDERS: Emergency Provider Emergency Medicine; PCP Family Medicine
DX: Z46.59 Encounter for fitting and adjustment of other gastrointestinal appliance and device (principal); G80.9 Cerebral palsy, unspecified; K21.9 Gastro-esophageal reflux disease without esophagitis; Z79.899 Other long term (current) drug therapy; Z93.3 Colostomy status; Z93.0 Tracheostomy status
CPT/HCPCS: 74018; 99284

== ENCOUNTER → 2020-01-16 | Outpatient (CLI) | payer BC, MEDICAID, SELFPAY ==
[2019-12-30 00:07] VITALS: BMI 33.6
[2020-01-16 16:16] LABS: Absolute Lymphocyte Count 2.13 X10^3/uL (0.83-4.51); Absolute Neutrophil Count 1.8 X10^3/uL (2.0-7.7); Basophil# 0.01 X10^3/uL; Basophil% 0.2 % (0-1); Eosinophil# 0.44 X10^3/uL; Eosinophils% 9.3 % (0-5); Hematocrit 34.5 % (40-54); Hemoglobin 11.2 g/dL (13.0-16.5); Lymphocyte # 2.13 X10^3/ul (4.0); Lymphocyte % 45.1 % (19-41); Mean Corp Hgb Conc 32.5 g/dL (32-36); Mean Corpuscular Hgb 29.6 pg (27.0-32.0); Mean Corpuscular Volume 91.3 fL (80-94); Mean Platelet Vol. 10.6 fl (6.2-12.0); Monocyte# 0.35 X10^3/uL; Monocyte% 7.4 % (0-10); NRBC Flagged by Analyzer 0 % (0-5); Neutrophil # 1.79 X10^3/uL (2.7-7.7); Platelet Count 128 K/mm3 (150-450); RBC Distribution Width CV 13.5 % (11.6-14.6); RBC Distribution Width SD 45.4 fl (35.1-43.9); Red Blood Count 3.78 M/mm3 (4.6-6.2); White Blood Count 4.7 K/mm3 (4.4-11.0)
[2020-01-16 16:29] LABS: Anion Gap 7 (5-15); BUN 14 mg/dL (7-18); BUN/Creat Ratio 37.6 RATIO (10-20); Calcium,Total 8.6 mg/dL (8.5-10.1); Chloride 105 mmol/L (98-107); Creatinine, Serum 0.37 mg/dL (0.70-1.30); EST Glomerular Filtration Rate 278 mL/min (>60); Est Glom Filt Rate - Afr Amer 337 mL/min (>60); Glucose 91 mg/dL (74-106); Potassium 3.7 mmol/L (3.5-5.1); Sodium Level 141 mmol/L (136-145)
== END | disposition home or self-care (01) ==
LOC: LABSPEC 15:57
PROVIDERS: PCP Family Medicine; Visit Provider Internal Medicine Cardiovascular Disease
DX: R00.0 Tachycardia, unspecified (principal); D69.6 Thrombocytopenia, unspecified; I26.99 Other pulmonary embolism without acute cor pulmonale; I34.1 Nonrheumatic mitral (valve) prolapse; D50.9 Iron deficiency anemia, unspecified; J96.10 Chronic respiratory failure, unspecified whether with hypoxia or hypercapnia; G80.9 Cerebral palsy, unspecified; R60.9 Edema, unspecified
CPT/HCPCS: 80048; 85025

== ENCOUNTER → 2020-02-13 | Outpatient (CLI) | payer BC, MEDICAID, SELFPAY ==
[2020-02-13 10:22] LABS: Absolute Lymphocyte Count 2.27 X10^3/uL (0.83-4.51); Basophil# 0.01 X10^3/uL; Basophil% 0.2 % (0-1); Eosinophil# 0.32 X10^3/uL; Eosinophils% 6.3 % (0-5); Hematocrit 34.3 % (40-54); Hemoglobin 11.4 g/dL (13.0-16.5); Lymphocyte # 2.27 X10^3/ul (4.0); Lymphocyte % 44.6 % (19-41); Mean Corp Hgb Conc 33.2 g/dL (32-36); Mean Corpuscular Hgb 29.9 pg (27.0-32.0); Mean Platelet Vol. 10.9 fl (6.2-12.0); Monocyte# 0.46 X10^3/uL; NRBC Flagged by Analyzer 0 % (0-5); Neutrophil # 2.03 X10^3/uL (2.7-7.7); Neutrophil % 39.9 % (47-70); Platelet Count 136 K/mm3 (150-450); RBC Distribution Width SD 42.7 fl (35.1-43.9); Red Blood Count 3.81 M/mm3 (4.6-6.2); White Blood Count 5.1 K/mm3 (4.4-11.0)
[2020-02-13 10:36] LABS: AST(SGOT) 13 U/L (15-37); Alanine Aminotransfer ALT/SGPT 29 U/L (16-61); Albumin, Serum 3.4 g/dL (3.2-5.0); Alkaline Phosphatase 103 U/L (45-117); Anion Gap 3 (5-15); BUN 16 mg/dL (7-18); BUN/Creat Ratio 58.4 RATIO (10-20); Bilirubin, Direct 0.05 mg/dL (0.00-0.30); Calcium,Total 8.6 mg/dL (8.5-10.1); Chloride 105 mmol/L (98-107); Cholesterol 192 mg/dL (200); Creatinine, Serum 0.27 mg/dL (0.70-1.30); EST Glomerular Filtration Rate 396 mL/min (>60); Est Glom Filt Rate - Afr Amer 479 mL/min (>60); Globulin 4.3 g/dL (2.2-4.2); Glucose 81 mg/dL (74-106); High Density Lipoprotein 43 mg/dL; Potassium 3.9 mmol/L (3.5-5.1); Protein, Total 7.7 g/dL (6.4-8.2); Sodium Level 138 mmol/L (136-145); Triglycerides 225 mg/dL; Very Low Density Lipoprotein 45 mg/dL (5-40)
== END | disposition home or self-care (01) ==
LOC: LABSPEC 09:55
PROVIDERS: PCP Family Medicine; Referring Provider Internal Medicine Cardiovascular Disease; Visit Provider Internal Medicine Cardiovascular Disease
DX: E78.00 Pure hypercholesterolemia, unspecified (principal); R00.0 Tachycardia, unspecified; D69.6 Thrombocytopenia, unspecified; I26.99 Other pulmonary embolism without acute cor pulmonale; I34.1 Nonrheumatic mitral (valve) prolapse; D50.9 Iron deficiency anemia, unspecified; J96.10 Chronic respiratory failure, unspecified whether with hypoxia or hypercapnia; G80.9 Cerebral palsy, unspecified; R60.9 Edema, unspecified
CPT/HCPCS: 80048; 80061; 80076; 85025

== ENCOUNTER 2020-03-13 15:38 | Outpatient (RCR) | payer BC, MEDICAID, SELFPAY ==
[2020-03-13 16:16] LABS: Absolute Lymphocyte Count 1.99 X10^3/uL (0.83-4.51); Absolute Neutrophil Count 2.2 X10^3/uL (2.0-7.7); Basophil# 0.02 X10^3/uL; Basophil% 0.4 % (0-1); Eosinophil# 0.23 X10^3/uL; Eosinophils% 4.8 % (0-5); Hematocrit 33.7 % (40-54); Hemoglobin 11.2 g/dL (13.0-16.5); Lymphocyte # 1.99 X10^3/ul (4.0); Lymphocyte % 41.1 % (19-41); Mean Corp Hgb Conc 33.2 g/dL (32-36); Mean Corpuscular Hgb 29.6 pg (27.0-32.0); Mean Corpuscular Volume 88.9 fL (80-94); Mean Platelet Vol. 11.1 fl (6.2-12.0); Monocyte# 0.42 X10^3/uL; Monocyte% 8.7 % (0-10); NRBC Flagged by Analyzer 0 % (0-5); Neutrophil # 2.17 X10^3/uL (2.7-7.7); Neutrophil % 44.8 % (47-70); Platelet Count 123 K/mm3 (150-450); RBC Distribution Width CV 13.2 % (11.6-14.6); RBC Distribution Width SD 43.6 fl (35.1-43.9); Red Blood Count 3.79 M/mm3 (4.6-6.2); White Blood Count 4.8 K/mm3 (4.4-11.0)
[2020-03-13 16:36] LABS: Anion Gap 5 (5-15); BUN 16 mg/dL (7-18); BUN/Creat Ratio 50.3 RATIO (10-20); Calcium,Total 8.4 mg/dL (8.5-10.1); Chloride 106 mmol/L (98-107); Creatinine, Serum 0.32 mg/dL (0.70-1.30); EST Glomerular Filtration Rate 333 mL/min (>60); Est Glom Filt Rate - Afr Amer 403 mL/min (>60); Glucose 89 mg/dL (74-106); Potassium 3.5 mmol/L (3.5-5.1); Sodium Level 140 mmol/L (136-145)
== END 2020-03-24 23:59 ==
LOC: LABSPEC 15:38
PROVIDERS: PCP Family Medicine; Referring Provider Internal Medicine Cardiovascular Disease; Visit Provider Internal Medicine Cardiovascular Disease
DX: R00.0 Tachycardia, unspecified (principal); D69.6 Thrombocytopenia, unspecified; I26.99 Other pulmonary embolism without acute cor pulmonale; I34.1 Nonrheumatic mitral (valve) prolapse; D50.9 Iron deficiency anemia, unspecified; J96.10 Chronic respiratory failure, unspecified whether with hypoxia or hypercapnia; G80.9 Cerebral palsy, unspecified; R60.9 Edema, unspecified
CPT/HCPCS: 80048; 85025

== ENCOUNTER → 2020-04-12 | Outpatient (CLI) | payer BC, MEDICAID, SELFPAY ==
[2020-04-12 13:27] LABS: Absolute Lymphocyte Count 2.67 X10^3/uL (0.83-4.51); Absolute Neutrophil Count 2.1 X10^3/uL (2.0-7.7); Basophil# 0.03 X10^3/uL; Basophil% 0.5 % (0-1); Eosinophil# 0.22 X10^3/uL; Eosinophils% 3.9 % (0-5); Hematocrit 35.9 % (40-54); Hemoglobin 11.5 g/dL (13.0-16.5); Lymphocyte # 2.67 X10^3/ul (4.0); Lymphocyte % 47.1 % (19-41); Mean Corpuscular Volume 90.7 fL (80-94); Mean Platelet Vol. 11.3 fl (6.2-12.0); Monocyte% 10.6 % (0-10); NRBC Flagged by Analyzer 0 % (0-5); Neutrophil # 2.14 X10^3/uL (2.7-7.7); Neutrophil % 37.7 % (47-70); Platelet Count 169 K/mm3 (150-450); RBC Distribution Width CV 13.9 % (11.6-14.6); RBC Distribution Width SD 46.5 fl (35.1-43.9); Red Blood Count 3.96 M/mm3 (4.6-6.2); White Blood Count 5.7 K/mm3 (4.4-11.0)
[2020-04-12 14:21] LABS: Anion Gap 4 (5-15); BUN 22 mg/dL (7-18); BUN/Creat Ratio 59.9 RATIO (10-20); Calcium,Total 8.6 mg/dL (8.5-10.1); Chloride 103 mmol/L (98-107); Creatinine, Serum 0.37 mg/dL (0.70-1.30); EST Glomerular Filtration Rate 282 mL/min (>60); Est Glom Filt Rate - Afr Amer 342 mL/min (>60); Glucose 75 mg/dL (74-106); Potassium 3.5 mmol/L (3.5-5.1); Sodium Level 138 mmol/L (136-145)
== END | disposition home or self-care (01) ==
LOC: LABSPEC 12:36
PROVIDERS: PCP Family Medicine; Referring Provider Internal Medicine Cardiovascular Disease; Visit Provider Internal Medicine Cardiovascular Disease
DX: R00.0 Tachycardia, unspecified (principal); D69.6 Thrombocytopenia, unspecified; I26.99 Other pulmonary embolism without acute cor pulmonale; I34.1 Nonrheumatic mitral (valve) prolapse; D50.9 Iron deficiency anemia, unspecified; G80.9 Cerebral palsy, unspecified; R60.9 Edema, unspecified
CPT/HCPCS: 80048; 85025

== ENCOUNTER 2020-04-22 09:40 | Outpatient (RCR) | payer MEDICARE, BC, MEDICAID, SELFPAY ==
[2020-04-22 12:52] LABS: Absolute Lymphocyte Count 1.86 X10^3/uL (0.83-4.51); Absolute Neutrophil Count 2.6 X10^3/uL (2.0-7.7); Basophil# 0.02 X10^3/uL; Basophil% 0.4 % (0-1); Eosinophils% 3.9 % (0-5); Hematocrit 33.3 % (40-54); Hemoglobin 11.9 g/dL (13.0-16.5); Lymphocyte # 1.86 X10^3/ul (4.0); Mean Corp Hgb Conc 35.7 g/dL (32-36); Mean Corpuscular Hgb 32.6 pg (27.0-32.0); Mean Corpuscular Volume 91.2 fL (80-94); Mean Platelet Vol. 10.6 fl (6.2-12.0); Monocyte# 0.43 X10^3/uL; Monocyte% 8.3 % (0-10); NRBC Flagged by Analyzer 0 % (0-5); Neutrophil # 2.64 X10^3/uL (2.7-7.7); Neutrophil % 51.2 % (47-70); Platelet Count 122 K/mm3 (150-450); RBC Distribution Width CV 14.7 % (11.6-14.6); RBC Distribution Width SD 46.2 fl (35.1-43.9); Red Blood Count 3.65 M/mm3 (4.6-6.2); White Blood Count 5.2 K/mm3 (4.4-11.0)
[2020-04-24 16:22] LABS: Anion Gap 5 (5-15); BUN 17 mg/dL (7-18); BUN/Creat Ratio 53.6 RATIO (10-20); Calcium,Total 8.9 mg/dL (8.5-10.1); Chloride 104 mmol/L (98-107); Creatinine, Serum 0.32 mg/dL (0.70-1.30); EST Glomerular Filtration Rate 334 mL/min (>60); Est Glom Filt Rate - Afr Amer 404 mL/min (>60); Glucose 76 mg/dL (74-106); Sodium Level 138 mmol/L (136-145)
== END 2020-05-22 23:59 ==
LOC: LABSPEC 09:40
PROVIDERS: PCP Family Medicine; Referring Provider Internal Medicine Cardiovascular Disease; Visit Provider Internal Medicine Cardiovascular Disease
DX: R00.0 Tachycardia, unspecified (principal); R60.9 Edema, unspecified; D69.6 Thrombocytopenia, unspecified; I26.99 Other pulmonary embolism without acute cor pulmonale; I34.1 Nonrheumatic mitral (valve) prolapse; D50.9 Iron deficiency anemia, unspecified; J96.10 Chronic respiratory failure, unspecified whether with hypoxia or hypercapnia; G80.9 Cerebral palsy, unspecified
CPT/HCPCS: 80048; 85025

== ENCOUNTER 2020-04-25 07:14 | Inpatient (IN) | payer MEDICARE, BC, MEDICAID, SELFPAY ==
[2020-04-25] VITALS (31 sets, daily range): BP systolic 92–175; BP diastolic 66–125; PULSE 79–118; RESP 13–28; TEMP 36.3–37.9; O2SAT 91–98; BMI 28.8; BMI 30.7; BMI 30.8
--- NOTE | 2020-04-25 07:26 | EKG12_ITS ---
Test Reason : Blood Pressure : / mmHG Vent. Rate : 135 BPM Atrial Rate : 135 BPM P-R Int : 120 ms QRS Dur : 084 ms QT Int : 276 ms P-R-T Axes : 043 -41 072 degrees QTc Int : 414 ms Sinus tachycardia Left axis deviation ST & T wave abnormality, consider anterolateral ischemia Abnormal ECG Confirmed by ENRIKE VARGAS, BESS ([id number]), design editor JOSEMANUEL TORRES ([id number]) on 04/29/2020 2:38:43 PM Referred By: MYLES Confirmed By:BESS CALVERT MD
--- NOTE | 2020-04-25 07:41 | ED.DCSUM_ITS ---
History of Present Illness Chief Complaint: Nausea/Vomiting Informant: Family Limited by: Language barrier Onset: Today 629 Context: Sudden Onset Timing: Waxes and wanes Quality: Vomiting x2, coffee grounds Location: GI Current Severity: Moderate Maximum Severity: Moderate Worsened by: History of esophagitis documented by EGD, Dr. Berry Najera Relieved by: Nothing Associated Symptoms: Fever, tachycardia and agitation Narrative: 40-year-old male who is nonverbal and vent dependent who was brought to the emergency department by ambulance because of nausea and vomiting. Emesis appears brown with coffee-ground. When mother checked for gastric residuals she noted coffee grounds. He was febrile per paramedics. He is febrile in the emergency department. History is limited to what parents are able to tell me. He did receive his p.m. meds. He has not received any medication this morning. He is on Ativan for agitation. Patient is hypoxic off the ventilator. Parents state he is not normally on the ventilator during the day. He requires mechanical ventilation during the evening/night. Parents prefer admission to [facility] if safe and appropriate. Otherwise, will require transfer to [facility]. 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 Status: Chronic (8) Thrombocytopenia Status: Chronic Past Medical History - Allergies and Home Meds Allergies/Adverse Reactions: Allergies cisapride monohydrate [From Propulsid] Allergy (Verified 04/25/20 09:23) Rash codeine Adverse Reaction (Verified 04/25/20 09:23) hallucinations metronidazole [From Flagyl] Adverse Reaction (Verified 04/25/20 09:23) Rash morphine Adverse Reaction (Verified 04/25/20 09:23) Hallucinations dust Allergy (Uncoded 04/25/20 09:23) Other Primary Care Physician: Timmy Conn MD [Primary Care Provider] - Prior records reviewed: Yes Surgical History: - - Baclofen pump, colostomy, G-tube, tracheostomy Lives: With Family Smoking Status: Never smoker Alcohol: None Drugs: None - Family History Maternal Family History: Family History (Last Reviewed 10/24/19 @ 13:19 by Promise Donnelly) Mother Hypertension Hepatitis C Father Hypertension Atrial fibrillation CAD (coronary artery disease) Family History: Reports: - - Mother with history of hypertension hepatitis C. Paternal Family History: Family History (Last Reviewed 10/24/19 @ 13:19 by Promise Donnelly) Mother Hypertension Hepatitis C Father Hypertension Atrial fibrillation CAD (coronary artery disease) Family History: Reports: - - Father with history of hypertension, coronary disease and atrial fibrillation. Review of Systems ROS: Unable to Obtain General: Reports: Fever Gastrointestinal: Reports: Vomiting Psych: Reports: - - Agitation Physical Exam Vital Signs/Narrative: Vital Signs Temp Pulse Resp BP Pulse Ox 04/25/20 07:24 100.3 F H 118 H 16 175/123 H 92 04/25/20 07:15 97.3 F L 105 H 16 175/123 H 94 Inital Vital Signs reviewed: Yes - Was breathing much more rapidly than 6 times that is documented by nursing. General: Well nourished, Well developed, Acute Distress Head: Normocephalic, Atraumatic Eyes: Perrl, EOMI, Pale conjunctiva. Negative for: Scleral icterus ENT: Moist mucous membranes, No rhinorrhea Neck: Supple, Nontender, No lymphadenopathy, - - Tracheostomy noted. Cardiovascular: Regular rhythm, No murmurs, Normal S1, Normal S2, Tachycardia Respiratory: Chest nontender. Negative for: No distress, CTA bilaterally Abdomen: Tender, Hypoactive bowel sounds. Negative for: Soft, Nontender, Nondistended, Normal bowel sounds, Hepatomegaly, Splenomegaly, Mass, Pulsatile mass Rectal: Deferred Back: Nontender Extremities: Nontender, Edema Skin: No Trauma, Pallor. Negative for: Normal color Neurological: - - To determine Psychological: Agitated Diagnostic/Tx/Re-eval Chest X-Ray - ED: Read by ED Physician, - - View portable chest x-ray is suboptimal due to limited inspiratory volume. Port noted on the right. Tracheostomy tube noted. The chest x-ray is unchanged from December 19, 2019. 2 view x-ray of the abdomen reveals nonspecific gas pattern. There is no evidence of obstruction. There is no acute 04/25/20 09:00 Chest 1 View (Portable) [RAD] Stat XRAY Abdomen [Abd Inc Decub and/or Erect] [RAD] Stat Laboratory Results 04/25/20 04/25/20 04/25/20 07:55 07:55 07:55 WBC 10.5 RBC 4.41 L Hgb 12.9 L Hct 39.4 L MCV 89.3 MCH 29.3 MCHC 32.7 D RDW Std Deviation 44.5 H RDW Coeff of Emilee 13.6 Plt Count 208 MPV 10.3 Immature Gran % (Auto) 0.200 Neut % (Auto) 50.4 Lymph % (Auto) 38.7 [place] % (Auto) 8.1 Eos % (Auto) 2.3 Baso % (Auto) 0.3 Absolute Neuts (auto) 5.3 Absolute Lymphs (auto) 4.07 Nucleated RBC % 0 PT 13.1 INR 1.0 APTT 37.3 H Sodium 136 Potassium 4.0 Chloride 100 Carbon Dioxide 30.0 Anion Gap 6 BUN 22 H Creatinine 0.51 L Estim Creat Clear Calc 158.06 Est GFR (MDRD) Af Amer 235 Est GFR (MDRD) Non-Af 194 BUN/Creatinine Ratio 43.3 H Glucose 105 Lactic Acid Calcium 9.1 Total Bilirubin 0.30 AST 27 ALT 37 Alkaline Phosphatase 139 H Total Protein 9.2 H Albumin 3.9 Globulin 5.3 H Albumin/Globulin Ratio 0.7 L Urine Color Urine Clarity Urine pH Ur Specific [place] Urine Protein Urine Glucose (UA) Urine Ketones Urine Occult Blood Urine Nitrite Urine Bilirubin Urine Urobilinogen Ur Leukocyte Esterase Urine RBC Urine WBC Ur Squamous Epith Cells Urine Bacteria Urine Mucus 04/25/20 04/25/20 07:55 08:05 WBC RBC Hgb Hct MCV MCH MCHC RDW Std Deviation RDW Coeff of [place] Plt Count MPV Immature Gran % (Auto) Neut % (Auto) Lymph % (Auto) [place] % (Auto) Eos % (Auto) Baso % (Auto) Absolute Neuts (auto) Absolute Lymphs (auto) Nucleated RBC % PT INR APTT Sodium Potassium Chloride Carbon Dioxide Anion Gap BUN Creatinine Estim Creat Clear Calc Est GFR (MDRD) Af Amer Est GFR (MDRD) Non-Af BUN/Creatinine Ratio Glucose Lactic Acid 1.9 Calcium Total Bilirubin AST ALT Alkaline Phosphatase Total Protein Albumin Globulin Albumin/Globulin Ratio Urine Color Yellow Urine Clarity Sl. Cloudy Urine pH 8.0 Ur Specific [place] 1.010 Urine Protein 15 H Urine Glucose (UA) Normal Urine Ketones Negative Urine Occult Blood Negative Urine Nitrite Negative Urine Bilirubin Negative Urine Urobilinogen Normal Ur Leukocyte Esterase Negative Urine RBC 0 SEEN Urine WBC 0 SEEN Ur Squamous Epith Cells 0-5 SEEN Urine Bacteria 0 SEEN Urine Mucus 0 SEEN There is no acute active bleeding. Hospitalist has been paged for admission. - EKG Initial EKG Interpretation: Sinus Tachycardia - Sinus tachycardia with a ventricular rate of 135. Computer is reading premature ventricular beats and fusion complexes that represent artifact due to tremors and agitation. [place] interval is 120 ms. Cures duration 84 ms. QT duration 276 ms. [place] to the left. Suboptimal tracing due to involuntary - Medical Decision Making Patient tachycardic, tachypneic and febrile suspect aspiration pneumonitis due to upper GI bleed with vomiting. Sepsis work-up was initiated. Chest x-ray was obtained as well as appropriate blood work. Abdominal x-ray was obtained to assess for obstruction since he is distended and tympanic with decreased bowel sounds. He was treated with Unasyn for aspiration pneumonitis. Spoke with hospitalist. He requested consultation notification of sweeping compound blender. Dr. Jacek Monsalve was paged. 10: 00 Case was discussed with sweeping compound blender Dr. Jacek Monsalve. He requested surgical backup. Dr. Zabrina Wilson 1022 am was paged. If she is willing to see patient if he develops active bleeding plan is to admit otherwise patient will require transfer. Spoke with Dr. Wilson at 1050. She states she will see perform EGD if patient deteriorates or develops active bleeding. - Critical Care Time Critical care time (excluding procedures): 30-74 minutes, Discussing w/Patient &/or Family/Assembler Brazer, Discussing w/Consultants, Arranging Admission or Transfer - Total time 32 minutes which included obtaining history from parents, review of prior records, documentation and initiation of care as well as interpretation of laboratory results ED Disposition - Plan for ED Patient: Disposition: Acute Care Hospital [facility] Diagnosis: Aspiration pneumonitis, Upper GI bleed, Acute and chronic respiratory failure with hypoxia, Anemia in chronic illness, Sepsis, Sinus tachycardia by electrocardiogram Referrals: Timmy Conn MD [Primary Care Provider] -
[2020-04-25] MEDS: 0.9% Normal Saline 1,000 ML 999 ML IV (07:50)
[2020-04-25 08:09] LABS: Absolute Lymphocyte Count 4.07 X10^3/uL (0.83-4.51); Absolute Neutrophil Count 5.3 X10^3/uL (2.0-7.7); Basophil# 0.03 X10^3/uL; Basophil% 0.3 % (0-1); Eosinophil# 0.24 X10^3/uL; Eosinophils% 2.3 % (0-5); Hematocrit 39.4 % (40-54); Hemoglobin 12.9 g/dL (13.0-16.5); Lymphocyte # 4.07 X10^3/ul (4.0); Lymphocyte % 38.7 % (19-41); Mean Corp Hgb Conc 32.7 g/dL (32-36); Mean Corpuscular Hgb 29.3 pg (27.0-32.0); Mean Corpuscular Volume 89.3 fL (80-94); Mean Platelet Vol. 10.3 fl (6.2-12.0); Monocyte# 0.85 X10^3/uL; Monocyte% 8.1 % (0-10); NRBC Flagged by Analyzer 0 % (0-5); Neutrophil # 5.32 X10^3/uL (2.7-7.7); Neutrophil % 50.4 % (47-70); Platelet Count 208 K/mm3 (150-450); RBC Distribution Width CV 13.6 % (11.6-14.6); RBC Distribution Width SD 44.5 fl (35.1-43.9); Red Blood Count 4.41 M/mm3 (4.6-6.2); White Blood Count 10.5 K/mm3 (4.4-11.0)
[2020-04-25 08:11] LABS: Bacteria 0 SEEN /hpf (None Seen); Mucous, Urine 0 SEEN /hpf (<or=2+); Red Blood Cells-Urine 0 SEEN /hpf (0-5); White Blood Cells 0 SEEN /hpf (0-5)
[2020-04-25] MEDS: LORazepam 2 MG/ML Syringe 1 MG IV (08:12)
[2020-04-25 08:13] LABS: Partial Thromboplast Time 37.3 Seconds (24.1-36.2); Prothrombin Time (Protime)PT. 13.1 SECONDS (11.7-14.9)
[2020-04-25 08:20] LABS: Color, Urine Yellow (Yellow); Glucose, Dipstick Normal (Normal); Ketone-Dipstick Negative (Negative); Leukocyte Esterase-Dipstick Negative /ul (Negative); Nitrite-Dipstick Negative (Negative); Occult Blood-Urine Negative /ul (Negative); Protein-Dipstick 15 mg/dl (Negative); Urine Bilirubin Dipstick Negative (Negative); Urine Clarity Sl. Cloudy (Clear); Urine Urobilinogen Normal (Normal)
[2020-04-25 08:24] LABS: ALB/GLOB Ratio 0.7 RATIO (0.9-2.4); AST(SGOT) 27 U/L (15-37); Alanine Aminotransfer ALT/SGPT 37 U/L (16-61); Albumin, Serum 3.9 g/dL (3.2-5.0); Alkaline Phosphatase 139 U/L (45-117); Anion Gap 6 (5-15); BUN 22 mg/dL (7-18); BUN/Creat Ratio 43.3 RATIO (10-20); Calcium,Total 9.1 mg/dL (8.5-10.1); Chloride 100 mmol/L (98-107); Creatinine, Serum 0.51 mg/dL (0.70-1.30); EST Glomerular Filtration Rate 194 mL/min (>60); Est Glom Filt Rate - Afr Amer 235 mL/min (>60); Estimated Creatinine Clearance 158.06 ml/min; Globulin 5.3 g/dL (2.2-4.2); Glucose 105 mg/dL (74-106); Protein, Total 9.2 g/dL (6.4-8.2); Sodium Level 136 mmol/L (136-145)
[2020-04-25 08:28] LABS: Squamous Epithelial Cells - UA 0-5 SEEN /hpf (0-5)
[2020-04-25 08:28] LABS: Lactic Acid 1.9 mmol/L (0.4-1.9)
--- NOTE | 2020-04-25 08:31 | ED.RN ---
pt oxygen saturation dropped to 85%, oxygen extension tubbing replaced, mother of pt changed vent settings on the pt's personal vent, pt's O2 sat is 93%.
--- NOTE | 2020-04-25 09:00 | RAD_ITS ---
STUDY: X-RAY - ABDOMEN/PELVIS REASON FOR EXAM: Male, 40 years old. Distention and vomiting TECHNIQUE: AP supine and upright views of the abdomen and pelvis. COMPARISON: None. FINDINGS: Normal visualized lung bases. There is an unremarkable bowel gas pattern. There is no demonstrated free abdominal air. A PEG tube is seen within the stomach. Contrast is seen within the urinary bladder. Levoscoliosis. RAD/Abd Inc Decub and/or Erect IMPRESSION: Nonspecific bowel gas pattern. A PEG tube is seen within the stomach. Contrast is seen within the urinary bladder. Electronically Signed: Matti Greer MD at 9:36 EST , Service support ,
--- NOTE | 2020-04-25 09:00 | RAD_ITS ---
STUDY: X-RAY CHEST REASON FOR EXAM: Male, 40 years old. Fever, aspiration TECHNIQUE: Single AP portable view of the chest. COMPARISON: Comparison is made with prior study 12/19/2019. FINDINGS: A tracheostomy is in situ. The tip is at 3.7 cm proximal to the clark. A right-sided portacatheter is seen with the tip in the right atrium. Stable elevation of the right hemidiaphragm. No acute abnormality is seen. There is no demonstrated pleural abnormality. Normal size heart. Normal mediastinum and rahcelle. Normal visualized pulmonary arteries. Normal visualized aortic arch and descending thoracic aorta. Normal visualized thoracic spine. Normal visualized ribs, clavicles, and shoulders. A PEG tube is seen within the stomach. RAD/Chest 1 View (Portable) IMPRESSION: No acute abnormality is seen. Electronically Signed: Matti Greer MD at 9:34 EST , Service support ,
--- NOTE | 2020-04-25 12:05 | PCM.HP.STD ---
Problem List (1) Anemia in chronic illness Status: Chronic (2) Iron deficiency anemia Status: Chronic Qualifiers: Iron deficiency anemia type: unspecified iron deficiency Qualified Code(s): D50.9 - Iron deficiency anemia, unspecified (3) Chronic respiratory failure Status: Chronic Qualifiers: Respiratory failure complication: hypoxia and hypercapnia Qualified Code(s): J96.11 - Chronic respiratory failure with hypoxia; J96.12 - Chronic respiratory failure with hypercapnia (4) Cerebral palsy Status: Chronic Qualifiers: Cerebral palsy type: spastic quadriplegic Qualified Code(s): G80.0 - Spastic quadriplegic cerebral palsy Comment: Quadriplegic Severe mental retardation Chronic constipation PEG tube History of Present Illness Date of Admission: 04/25/20 Chief Complaint: Vomiting. The patient is a 40 year old M with past medical history as mentioned above presented to the emergency room because of vomiting which appeared to be coffee-ground emesis. Patient history of cerebral palsy and he is nonverbal. Patient's mother was at the bedside and she provided information. Mother mentioned that patient started having nausea, vomiting and he threw up coffee-ground material. She mentioned that she checked the gastric residuals and they were also coffee-ground in color. 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 He had a history of chronic anemia due to combination of anemia of chronic disease and iron deficiency and his baseline hemoglobin has been anywhere from 9 to 11 g/dL and he has been on iron supplement. He had chronic respiratory failure, on tracheostomy and chronic vent at home. In the emergency department, spiked low-grade fever, was slightly tachycardic, was on mechanical ventilation. In the ICU, patient has been afebrile, heart rate is down to 90s, blood pressure stabilized and he is in trach collar with oxygen and pulse ox is 95%. Routine blood work was remarkable for hemoglobin of 12.9 g/dL, otherwise unremarkable. LFT was unremarkable. Lactic acid was normal. Urinalysis showed no evidence of acute infection. Chest x-ray showed no acute infiltrate or consolidation. X-ray abdomen showed nonspecific bowel gas pattern with tube in place. He is being admitted for coffee-ground emesis/possible upper GI bleed, possible aspiration without evidence of pneumonia on chest x-ray. Past Medical History Past Medical History (Chronic Problems): Chronic Problems (Last Updated 04/25/20 @ 12:[address] Gumaro Kohli MD) GI bleed due to esophagitis (Chronic) Acute and chronic respiratory failure with hypoxia (Chronic) Anemia in chronic illness (Chronic) Thrombocytopenia (Chronic) Pulmonary embolism on left (Chronic 06/14/19) Nonrheumatic mitral valve prolapse (Chronic) Iron deficiency anemia (Chronic) Chronic respiratory failure (Chronic) Cerebral palsy (Chronic) Quadriplegic Severe mental retardation Chronic constipation PEG tube Edema (Chronic) Medical History: Medical History (Last Updated 04/25/20 @ 12:[address] Gumaro Kohli MD) Thrombocytopenia (Chronic) D69.6 Pulmonary embolism on left (Chronic) Onset Date: 06/14/19 I26.99 Nonrheumatic mitral valve prolapse (Chronic) I34.1 Iron deficiency anemia (Chronic) D50.9 Chronic respiratory failure (Chronic) J96.10 Cerebral palsy (Chronic) G80.9 Quadriplegic Severe mental retardation Chronic constipation PEG tube Edema (Chronic) R60.9 Debility R53.81 History of seizure disorder Z86.69 Obesity E66.9 Redundant colon Q43.[address] Z93.0 Allergies cisapride monohydrate [From Propulsid] Allergy (Verified 04/25/20 09:23) Rash codeine Adverse Reaction (Verified 04/25/20 09:23) hallucinations metronidazole [From Flagyl] Adverse Reaction (Verified 04/25/20 09:23) Rash morphine Adverse Reaction (Verified 04/25/20 09:23) Hallucinations dust Allergy (Uncoded 04/25/20 09:23) Other Home Medications: Ambulatory Orders Medication Instructions Recorded Simethicone 40MG/0.6ML [Mylicon] 40 mg GT 4X/DAY 11/09/13 Pantoprazole Sodium [Protonix] 20 ml GT BID 08/09/14 Phenobarbital 60 mg GT BID 02/19/17 Cetirizine HCl [Zyrtec] 10 ml GT DAILY 02/04/18 Lactobacillus Acidophilus 1 cap GT DAILY 02/04/18 [Acidophilus] metoclopramide HCl 5 mg/5 mL oral 10 mg GT TID ml 09/16/18 solution Lorazepam [Ativan] 1 mg GT Q8 PRN 10/08/18 Cough Assist 1 dose .ROUTE .MEDSUPPLY 12/25/18 Ferrous Sulfate 5 ml GT DAILY 12/25/18 oxygen concentrator 1 dose .ROUTE .MEDSUPPLY 12/25/18 Baclofen [Ozobax] 20 mg GT Q6H 05/09/19 Lactose-Reduced Food/Fiber [Jevity 50 ml GT DAILY 05/09/19 1.2 South Liquid] Ondansetron HCl [Zofran] 5 ml PO DAILY PRN 05/09/19 Doxazosin Mesylate [Cardura] 2 mg GT DAILY #30 tab 07/11/19 gabapentin 250 mg/5 mL (5 mL) oral 150 mg PO 1200,1800 ml 08/03/19 solution Ascorbic Acid [Vitamin C] 500 mg GT DAILY 08/04/19 Gabapentin 100 mg GT 0000,0600 09/26/19 epinephrine 0.3 mg/0.3 mL 0.3 mg IM ONCE 10/24/19 injection, auto-injector Magnesium Hydroxide [Milk Of 30 ml GT DAILY PRN PRN 04/25/20 Magnesia] Plecanatide [Trulance] 3 mg GT DAILY 04/25/20 Surgical History: Surgical History (Last Reviewed 10/24/19 @ 13:19 by Promise Donnelly) Colostomy in place Z93.3 Heel cord lengthening bilaterally History of colostomy History of gastrostomy tube placement History of open reduction and internal fixation (ORIF) procedure Z98.890 left hip History of soft tissue release Bilateral hips and knees Status post insertion of intrathecal baclofen pump Z96.89 status post removal in March 2018. Surgical History: - - Baclofen pump, colostomy, G-tube, tracheostomy Psychiatric History: No pertinent psych hx Lives: With Family Smoking Status: Never smoker Alcohol: None Drugs: None - *Family History Maternal Family History: Family History (Last Reviewed 10/24/19 @ 13:19 by Promise Donnelly) Mother Hypertension Hepatitis C Father Hypertension Atrial fibrillation CAD (coronary artery disease) History Items: - - Mother with history of hypertension hepatitis C. Paternal Family History: Family History (Last Reviewed 10/24/19 @ 13:19 by Promise Donnelly) Mother Hypertension Hepatitis C Father Hypertension Atrial fibrillation CAD (coronary artery disease) History Items: - - Father with history of hypertension, coronary disease and atrial fibrillation. Review of Systems Constitutional: Reports: - - Unobtainable, patient is nonverbal. Eyes: Reports: - - Unobtainable, patient is nonverbal. HEENT: Reports: - - Unobtainable, patient is nonverbal. Cardiovascular: Reports: - - Unobtainable, patient is nonverbal. Respiratory: Reports: - - Unobtainable, patient is nonverbal. Gastrointestinal: Reports: - - Unobtainable, patient is nonverbal. Genitourinary: Reports: - - Unobtainable, patient is nonverbal. Musculoskeletal: Reports: - - Unobtainable, patient is nonverbal. Skin: Reports: - - Unobtainable, patient is nonverbal. Neurological: Reports: - - Unobtainable, patient is nonverbal. Psychiatric: Reports: - - Unobtainable, patient is nonverbal. VTE Information - Inpt Only VTE Present on Admission: No VTE Mechan Device Prophylaxis: SCD's VTE Pharm Prophylaxis ordered?: No - Physical Exam Vitals/I&O's: Vital Signs Temp Pulse Resp BP Pulse Ox 98.8 F 90 20 H 114/92 H 96 04/25/20 11:02 04/25/20 11:02 04/25/20 11:02 04/25/20 11:02 04/25/20 11:02 Oxygen Delivery Method Trach Collar Weight: 157 lb 10.088 oz Body Mass Index (BMI) 30.7 Finger Stick Blood Glucose 132 Intake and Output for Last 24 Hours 04/23/20 04/24/20 04/25/20 23:59 23:59 23:59 Intake Total 1147 / 1147 Balance 1147 / 1147 General: - - Awake, open eyes spontaneously, nonverbal. Severe MRDD, spastic quadriplegia. HEENT: Atraumatic, PERRLA, Normocephalic, - - Tracheostomy in place. Oral: Moist Mucosa, No Gingival or Mucosal Lesions/ Ulcerations Neck: Supple, No JVD, Negative Carotid Bruits, Trachea Midline, Thyroid Normal Size and Texture Lungs: Clear to auscultation, No rhonchi, No wheeze, No rales, Diminished Cardiovascular: Regular rate, Regular Rhythm, Normal S1, Normal S2, PMI Normal Abdomen: Bowel Sounds Present, Soft, Non Tender, Non-Distended, No Hepato-splenomegaly, - - Colostomy bag in place. Extremities: No clubbing, No cyanosis, Edema Skin: No rashes, No breakdown Lymphatic: No Cervical, Supraclavicular, or Inguinal Adenopathy Neurological: - - Cerebral palsy, nonverbal, not following commands, spastic quadriplegia. Psych/Mental Status: - - Unable to assess. Laboratory Results 04/25/20 07:55: WBC 10.5, RBC 4.41 L, Hgb 12.9 L, Hct 39.4 L, MCV 89.3, MCH 29.3, MCHC 32.7 D, RDW Std Deviation 44.5 H, RDW Coeff of [place]ilee 13.6, Plt Count 208, MPV 10.3, Immature Gran % (Auto) 0.200, Neut % (Auto) 50.4, Lymph % (Auto) 38.7, [place] % (Auto) 8.1, Eos % (Auto) 2.3, Baso % (Auto) 0.3, Absolute Neuts (auto) 5.3, Absolute Lymphs (auto) 4.07, Nucleated RBC % 0 04/25/20 07:55: PT 13.1, INR 1.0, APTT 37.3 H 04/25/20 07:55: Sodium 136, Potassium 4.0, Chloride 100, Carbon Dioxide 30.0, Anion Gap 6, BUN 22 H, Creatinine 0.51 L, Estim Creat Clear Calc 158.06, Est GFR (MDRD) Af Amer 235, Est GFR (MDRD) Non-Af 194, BUN/Creatinine Ratio 43.3 H, Glucose 105, Calcium 9.1, Total Bilirubin 0.30, AST 27, ALT 37, Alkaline Phosphatase 139 H, Total Protein 9.2 H, Albumin 3.9, Globulin 5.3 H, Albumin/Globulin Ratio 0.7 L 04/25/20 07:55: Lactic Acid 1.9 04/25/20 08:05: Urine Color Yellow, Urine Clarity Sl. Cloudy, Urine pH 8.0, Ur Specific [place] 1.010, Urine Protein 15 H, Urine Glucose (UA) Normal, Urine Ketones Negative, Urine Occult Blood Negative, Urine Nitrite Negative, Urine Bilirubin Negative, Urine Urobilinogen Normal, Ur Leukocyte Esterase Negative, Urine RBC 0 SEEN, Urine WBC 0 SEEN, Ur Squamous Epith Cells 0-5 SEEN, Urine Bacteria 0 SEEN, Urine Mucus 0 SEEN Clinical Impression(s) from Imaging Studies Abdomen X-Ray 04/25/20 09:00 IMPRESSION: Nonspecific bowel gas pattern. A PEG tube is seen within the stomach. Contrast is seen within the urinary bladder. Electronically Signed: Matti Greer MD at 9:36 EST , Service support , Chest X-Ray 04/25/20 09:00 IMPRESSION: No acute abnormality is seen. Electronically Signed: Matti Greer MD at 9:34 EST , Service support , Current Medications Ascorbic Acid (Ascorbic Acid 500 Mg Tablet) 500 mg GT DAILY [facility] Baclofen (Baclofen 10 Mg Tablet) 20 mg GT Q6 [facility] Doxazosin Mesylate (Doxazosin 1 Mg Tablet) 2 mg GT DAILY [facility] Ferrous Sulfate (Ferrous Sulfate 300 Mg/5 Ml Udc) 75 mg GT DAILY [facility] Heparin Sodium (Beef Lung) (Heparin Pf Lock 10 Units/Ml 50 Units/5 Ml Syringe) 50 units IV UD PRN PRN Reason: R Port Heparin Flush Sodium Chloride () 1,000 mls @ 60 mls/hr IV .[id number] [facility] Stop: 04/26/20 04:00 Pantoprazole Sodium 40 mg/ (Sodium Chloride) 110 mls @ 330 mls/hr IV Q12 [facility] Sodium Chloride () 500 mls @ 15 mls/hr IV PRN PRN PRN Reason: Blood Transfusion Lactobacillus Acidophilus (Lactobacillus Acidophilus) 1 tablet GT DAILY [facility] Loratadine (Loratadine 10 Mg Tablet) 10 mg GT DAILY [facility] Lorazepam (Lorazepam 1 Mg Tablet) 1 mg GT Q8H PRN PRN PRN Reason: AGITATION Magnesium Hydroxide (Magnesium Hydroxide 30 Ml Udc) 30 ml GT DAILY PRN PRN PRN Reason: Constipation Metoclopramide HCl (Metoclopramide 10 Mg/10 Ml Udc) 10 mg GT TID [facility] Non-Formulary Medication (Gabapentin) 100 mg GT 0000,0600 [facility] Non-Formulary Medication (Gabapentin) 150 mg PO 1200,1800 [facility] Non-Formulary Medication (Lactose-Reduced Food/Fiber [Jevity 1.2 [place] Liquid]) 50 ml GT DAILY [facility] Non-Formulary Medication (Plecanatide [Trulance]) 3 mg GT DAILY [facility] Ondansetron HCl (Ondansetron 4 Mg/2 Ml Vial) 4 mg IV Q8H PRN PRN PRN Reason: NAUSEA/VOMITING Phenobarbital (Phenobarbital 20 Mg/5 Ml Udc) 60 mg GT BID [facility] Simethicone (Simethicone 40mg/0.6ml Bottle) 40 mg GT 4X/DAY [facility] Sodium Chloride (0.9% Saline Lock 10 Ml Syringe) 10 - 40 ml IV UD PRN PRN Reason: R [place] Flush Sodium Chloride (0.9 % Nacl (Sterile) Posiflush 10 Ml) 10 - 40 ml IV UD PRN PRN Reason: Port access or dressing change Assessment/Plan This is a 60 years old male patient presented to the emergency room because of nausea, vomiting and coffee-ground emesis, there is questionable aspiration and he is being admitted for evaluation and treatment. #1 nausea/vomiting/coffee-ground emesis/possible upper GI bleed: He does have coffee-ground emesis. No reported hematemesis. Admission globin is 12.9 g/dL, reticulocyte count is normal. INR is normal. He does have history of esophagitis, had upper EGD at [facility] on December, according to the mother. He has been on Protonix. Plan: Admit to ICU, critical care monitoring, gentle IV fluids for hydration, start IV Protonix twice daily, H&H at 6 PM today, transfuse if hemoglobin is than 8 g/dL, general surgery consult, critical care consult, repeat CBC and BMP tomorrow morning, PT OT evaluation and treatment. #2 vomiting/possible aspiration: Without evidence of pneumonia on chest x-ray. Chest x-ray reviewed, no acute findings. Patient did have a spike of low-grade fever in the ED. He has no leukocytosis. He received 1 dose of IV Unasyn in the ED. Plan: Blood culture, urine culture, repeat chest x-ray tomorrow. At this time, I do think patient will need IV antibiotics, plan to monitor. #3 chronic respiratory failure: On chronic home vent. Currently, he is on trach collar, pulse ox is 95%. Plan to consult critical care, continue home vent settings. #4 chronic anemia combined iron deficiency and anemia of chronic disease: Baseline hemoglobin around 9 to 11 g/dL. Admission globin is 12.9, stable. Plan as above, repeat H&H later today, transfuse if hemoglobin is than 8 g/dL. #5 cerebral palsy/spastic quadriplegia/MRDD: Continue baclofen, Ativan as needed, Reglan. #6 seizure disorder: Continue phenobarbital. #7 GERD: He will be on IV Protonix twice daily. #8 DVT prophylaxis: SCDs. This note was generated with [employer] dictation software. It may contain incorrect words, spelling, and punctuation that were not noted in checking the note before signing. Inpatient E&M: 05154 Init Hosp L3
[2020-04-25] MEDS: Baclofen 10 MG Tablet 20 MG GT ×2 (13:27→17:23)
[2020-04-25] MEDS: Metoclopramide 10 MG/10 ML UDC GT ×2 (13:28→21:30)
[2020-04-25] MEDS: Simethicone 40MG/0.6ML Bottle 40 MG GT ×3 (13:28→21:32)
[2020-04-25] MEDS: 0.9% Normal Saline 1,000 ML 60 ML IV (13:39)
--- NOTE | 2020-04-25 15:01 | NT.THERAPY_ITS ---
Nutrition Therapy Report - History Nutrition Services has been consulted to:: Manage enteral nutrition Current diet / nutrition support order:: none ordered - Anthropometric Measurements Height:: 5 ft Weight:: 71.5 kg Body Mass Index (BMI):: 30.7 - Relevant Labs Relevant Labs:: RBC 4.41 M/mm3 (4.6-6.2) L 04/25/20 07:55 Hgb 12.9 g/dL (13.0-16.5) L 04/25/20 07:55 Hct 39.4 % (40-54) L 04/25/20 07:55 RDW Std Deviation 44.5 fl (35.1-43.9) H 04/25/20 07:55 APTT 37.3 Seconds (24.1-36.2) H 04/25/20 07:55 BUN 22 mg/dL (7-18) H 04/25/20 07:55 Creatinine 0.51 mg/dL (0.70-1.30) L 04/25/20 07:55 BUN/Creatinine Ratio 43.3 RATIO (10-20) H 04/25/20 07:55 Alkaline Phosphatase 139 U/L (45-117) H 04/25/20 07:55 Total Protein 9.2 g/dL (6.4-8.2) H 04/25/20 07:55 Globulin 5.3 g/dL (2.2-4.2) H 04/25/20 07:55 Albumin/Globulin Ratio 0.7 RATIO (0.9-2.4) L 04/25/20 07:55 - Assessment Food / Nutrition-Related History:: Mother, Miky at bedside to provide information. Pt is non-verbal. All nutrition provided via PEG. At home, 4-5 cartons of Jevity 1.2/day to provide ~1425 calories, 66 g protein. Mom states flushes vary- tries to give 100mL/hour while awake and 150mL flush if pt awakes during night. Feeds are semi-continuous at home- feeds ~65-70mL/hour during day, 40mL/hour when pt sleeping. Does not exceed 5 cartons/day. Mom states wt loss was intentional- has lost ~11#/6.6% since August 2019. - Nutrition Diagnosis Problem / Etiology / Signs & Symptoms (PES):: altered GI function r/t suspected GI bleed as evidenced by reported coffee ground emesis and coffee groung gastric residuals Evidence of Malnutrition Exists:: No - Nutrition Intervention Nutrition Prescription:: 6820-1034 calories/day (20 calories/kg / 30 calories/kg IBW). 60-70 g protein/day (1g/kg). 1800mL fluid/day (25mL/kg) - Food / Nutrient Delivery Interventions Summary of nutrition intervention:: Per RE Wilks, plans for scope w/ Dr. Wilson tomorrow, will hold enteral nutrition at this time. Jevity 1.2 is not on [facility] formulary- will use Jevity 1.5 instead. Discussed plan w/ mom, who verba lized understanding. Mom worried about restarting tube feeds too fast. Discussed will start at half rate and increase as tolerated. Nutrition support ordered as / adjusted to:: NPO; When medically appropriate, recommend resume enteral nutrition via PEG. Jevity 1.5 at 40mL/hour w/ 150mL H2O flush every 4 hours to provide 1440 calories, 61 g protein, and 1800mL fluid/day. Would start at 20mL/hour and increase by 10mL every 8 hours as pt tolerates until goal rate achieved. - MNT Monitoring Further MNT monitoring and evaluation required?: Yes MNT Follow-up in:: 1-2 days
--- NOTE | 2020-04-25 16:00 | CON.PCM_ITS ---
Reason for Consult Date of Consultation: 04/25/20 History of Present Illness: The patient is a 40 year old M Admitted for coffee-ground emesis and aspiration. Patient does have past medical history for Cerebral palsy, status post trach and Fracisco button. Patient's mom states that she found this morning with some coffee-ground emesis on his neck/upper chest and also had some chunks coming out of his Fracisco button when she aspirated. They did get looks like about 200 cc of dark coffee-ground material from the Fracisco button in the ER/ICU.Patient mom states his last EGD was in December at [facility] states she did he did have some reflux at that time. EGD report from 12/27/2019 showed LA grade D no bleeding was found otherwise unremarkable. Patient's mom states that he gets Protonix twice a day at home via Fracisco button. Patient hemoglobin currently 12.9 on admit. Past Medical History Past Medical History (Chronic Problems): Chronic Problems (Last Updated 04/25/20 @ 12:[address] Gumaro Kohli MD) GI bleed due to esophagitis (Chronic) Acute and chronic respiratory failure with hypoxia (Chronic) Anemia in chronic illness (Chronic) Thrombocytopenia (Chronic) Pulmonary embolism on left (Chronic 06/14/19) Nonrheumatic mitral valve prolapse (Chronic) Iron deficiency anemia (Chronic) Chronic respiratory failure (Chronic) Cerebral palsy (Chronic) Quadriplegic Severe mental retardation Chronic constipation PEG tube Edema (Chronic) Medical History: Medical History (Last Updated 04/25/20 @ 12:[address] Gumaro Kohli MD) Thrombocytopenia (Chronic) D69.6 Pulmonary embolism on left (Chronic) Onset Date: 06/14/19 I26.99 Nonrheumatic mitral valve prolapse (Chronic) I34.1 Iron deficiency anemia (Chronic) D50.9 Chronic respiratory failure (Chronic) J96.10 Cerebral palsy (Chronic) G80.9 Quadriplegic Severe mental retardation Chronic constipation PEG tube Edema (Chronic) R60.9 Debility R53.81 History of seizure disorder Z86.69 Obesity E66.9 Redundant colon Q43.[address] Z93.0 Allergies cisapride monohydrate [From Propulsid] Allergy (Verified 04/25/20 09:23) Rash codeine Adverse Reaction (Verified 04/25/20 09:23) hallucinations metronidazole [From Flagyl] Adverse Reaction (Verified 04/25/20 09:23) Rash morphine Adverse Reaction (Verified 04/25/20 09:23) Hallucinations dust Allergy (Uncoded 04/25/20 09:23) Other Home Medications: Ambulatory Orders Medication Instructions Recorded Simethicone 40MG/0.6ML [Mylicon] 40 mg GT 4X/DAY 11/09/13 Phenobarbital 60 mg GT BID 02/19/17 Cetirizine HCl [Zyrtec] 10 ml GT DAILY 02/04/18 Lactobacillus Acidophilus 1 cap GT DAILY 02/04/18 [Acidophilus] metoclopramide HCl 5 mg/5 mL oral 10 mg GT TID ml 09/16/18 solution Lorazepam [Ativan] 1 mg GT Q8 PRN 10/08/18 Cough Assist 1 dose .ROUTE .MEDSUPPLY 12/25/18 Ferrous Sulfate 5 ml GT DAILY 12/25/18 oxygen concentrator 1 dose .ROUTE .MEDSUPPLY 12/25/18 Baclofen [Ozobax] 20 mg GT Q6H 05/09/19 Lactose-Reduced Food/Fiber [Jevity 50 ml GT DAILY 05/09/19 1.2 South Liquid] Ondansetron HCl [Zofran] 5 ml PO DAILY PRN 05/09/19 Doxazosin Mesylate [Cardura] 2 mg GT DAILY #30 tab 07/11/19 gabapentin 250 mg/5 mL (5 mL) oral 150 mg PO 1200,1800 ml 08/03/19 solution Ascorbic Acid [Vitamin C] 500 mg GT DAILY 08/04/19 Gabapentin 100 mg GT 0000,0600 09/26/19 epinephrine 0.3 mg/0.3 mL 0.3 mg IM ONCE 10/24/19 injection, auto-injector Magnesium Hydroxide [Milk Of 30 ml GT DAILY PRN PRN 04/25/20 Magnesia] Plecanatide [Trulance] 3 mg GT DAILY 04/25/20 Fluconazole [Diflucan] 200 mg GT DAILY 14 Days #300 ml 04/26/20 Pantoprazole Sodium [Protonix] 40 mg GT BID #60 tab 04/26/20 Sucralfate [Carafate] 1 gm GT 4X/DAY #90 tab 04/26/20 Surgical History: Surgical History (Last Reviewed 10/24/19 @ 13:19 by Promise Donnelly) Colostomy in place Z93.3 Heel cord lengthening bilaterally History of colostomy History of gastrostomy tube placement History of open reduction and internal fixation (ORIF) procedure Z98.890 left hip History of soft tissue release Bilateral hips and knees Status post insertion of intrathecal baclofen pump Z96.89 status post removal in March 2018. Surgical History: - - Baclofen pump, colostomy, G-tube, tracheostomy Psychiatric History: No pertinent psych hx Lives: With Family Smoking Status: Never smoker Alcohol: None Drugs: None - *Family History Maternal Family History: Family History (Last Reviewed 10/24/19 @ 13:19 by Promise Donnelly) Mother Hypertension Hepatitis C Father Hypertension Atrial fibrillation CAD (coronary artery disease) History Items: - - Mother with history of hypertension hepatitis C. Paternal Family History: Family History (Last Reviewed 10/24/19 @ 13:19 by Promise Donnelly) Mother Hypertension Hepatitis C Father Hypertension Atrial fibrillation CAD (coronary artery disease) History Items: - - Father with history of hypertension, coronary disease and atrial fibrillation. Review of Systems Unable to obtain accurate/complete ROS d/t: Patient is nonverbal - Physical Exam Vitals/I&O's: Vital Signs Temp Pulse Resp BP Pulse Ox 98.8 F 85 25 H 158/98 H 94 04/25/20 11:02 04/25/20 15:39 04/25/20 15:00 04/25/20 15:00 04/25/20 15:00 Oxygen Flow Rate (L/min) 4 Oxygen Delivery Method Mechanical Ventilator Weight: 157 lb 10.088 oz Body Mass Index (BMI) 30.7 Finger Stick Blood Glucose 132 Intake and Output for Last 24 Hours 04/23/20 04/24/20 04/25/20 23:59 23:59 23:59 Intake Total 1197 / 1197 Balance 1197 / 1197 HEENT: - - Trach in place Cardiovascular: Regular rate Abdomen: Soft, Non-Distended, - - Left lower quadrant ostomy, pink with stool, Left upper quadrant Fracisco button in place Extremities: - - Spastic cerebral palsy/quadriplegic Laboratory Results 04/25/20 07:55: WBC 10.5, RBC 4.41 L, Hgb 12.9 L, Hct 39.4 L, MCV 89.3, MCH 29.3, MCHC 32.7 D, RDW Std Deviation 44.5 H, RDW Coeff of Emilee 13.6, Plt Count 208, MPV 10.3, Immature Gran % (Auto) 0.200, Neut % (Auto) 50.4, Lymph % (Auto) 38.7, Norman % (Auto) 8.1, Eos % (Auto) 2.3, Baso % (Auto) 0.3, Absolute Neuts (auto) 5.3, Absolute Lymphs (auto) 4.07, Nucleated RBC % 0 04/25/20 07:55: PT 13.1, INR 1.0, APTT 37.3 H 04/25/20 07:55: Sodium 136, Potassium 4.0, Chloride 100, Carbon Dioxide 30.0, Anion Gap 6, BUN 22 H, Creatinine 0.51 L, Estim Creat Clear Calc 158.06, Est GFR (MDRD) Af Amer 235, Est GFR (MDRD) Non-Af 194, BUN/Creatinine Ratio 43.3 H, Glucose 105, Calcium 9.1, Total Bilirubin 0.30, AST 27, ALT 37, Alkaline Phosphatase 139 H, Total Protein 9.2 H, Albumin 3.9, Globulin 5.3 H, Albumin/Globulin Ratio 0.7 L 04/25/20 07:55: Lactic Acid 1.9 04/25/20 08:05: Urine Color Yellow, Urine Clarity Sl. Cloudy, Urine pH 8.0, Ur Specific [place] 1.010, Urine Protein 15 H, Urine Glucose (UA) Normal, Urine Ketones Negative, Urine Occult Blood Negative, Urine Nitrite Negative, Urine Bilirubin Negative, Urine Urobilinogen Normal, Ur Leukocyte Esterase Negative, Urine RBC 0 SEEN, Urine WBC 0 SEEN, Ur Squamous Epith Cells 0-5 SEEN, Urine Bacteria 0 SEEN, Urine Mucus 0 SEEN Current Medications Ascorbic Acid (Ascorbic Acid 500 Mg Tablet) 500 mg GT DAILY [facility] Baclofen (Baclofen 10 Mg Tablet) 20 mg GT Q6 [facility] Last Admin: 04/25/20 13:27 Dose: 20 mg Documented by: Doxazosin Mesylate (Doxazosin 1 Mg Tablet) 2 mg GT DAILY [facility] Ferrous Sulfate (Ferrous Sulfate 300 Mg/5 Ml Udc) 75 mg GT DAILY [facility] Gabapentin (Gabapentin 250 Mg/5 Ml Solution) 100 mg GT 0000,0600 [facility] Gabapentin (Gabapentin 250 Mg/5 Ml Solution) 150 mg PO 1200,1800 [facility] Heparin Sodium (Beef Lung) (Heparin Pf Lock 10 Units/Ml 50 Units/5 Ml Syringe) 50 units IV UD PRN PRN Reason: R Port Heparin Flush Sodium Chloride () 1,000 mls @ 60 mls/hr IV .[id number] [facility] Stop: 04/26/20 04:00 Last Admin: 04/25/20 13:39 Dose: 60 mls/hr Documented by: Pantoprazole Sodium 40 mg/ (Sodium Chloride) 110 mls @ 330 mls/hr IV Q12 [facility] Sodium Chloride () 500 mls @ 15 mls/hr IV PRN PRN PRN Reason: Blood Transfusion Lactobacillus Acidophilus (Lactobacillus Acidophilus) 1 tablet GT DAILY [facility] Loratadine (Loratadine 10 Mg Tablet) 10 mg GT DAILY [facility] Lorazepam (Lorazepam 1 Mg Tablet) 1 mg GT Q8H PRN PRN PRN Reason: AGITATION Magnesium Hydroxide (Magnesium Hydroxide 30 Ml Udc) 30 ml GT DAILY PRN PRN PRN Reason: Constipation Metoclopramide HCl (Metoclopramide 10 Mg/10 Ml Udc) 10 mg GT TID [facility] Last Admin: 04/25/20 13:28 Dose: 10 mg Documented by: Ondansetron HCl (Ondansetron 4 Mg/2 Ml Vial) 4 mg IV Q8H PRN PRN PRN Reason: NAUSEA/VOMITING Phenobarbital (Phenobarbital 20 Mg/5 Ml Udc) 60 mg GT BID [facility] Simethicone (Simethicone 40mg/0.6ml Bottle) 40 mg GT 4X/DAY [facility] Last Admin: 04/25/20 13:28 Dose: 40 mg Documented by: Sodium Chloride (0.9% Saline Lock 10 Ml Syringe) 10 - 40 ml IV UD PRN PRN Reason: R Port Saline Flush Sodium Chloride (0.9 % Nacl (Sterile) Posiflush 10 Ml) 10 - 40 ml IV UD PRN PRN Reason: Port access or dressing change Assessment/Plan 40-year-old male with coffee-ground emesis, history of esophagitis, cerebral palsy. 1. I have discussed the above with the Patient's mom who was at bedside.We will plan to do the EGD tomorrow about 130 at bedside in the ICU. Patient is currently on IV Protonix. I have offered the patient EGD for evaluation. I have explained the risks/benefits of the procedure and described the procedure. I have discussed the risks with the patient, including but not limited to: infection, bleeding, perforation of the GI tract requiring emergency surgery, inability to complete the procedure, injury to any internal organs, complications of anesthesia, etc. - the Patient's mom understands and agrees to proceed. I have answered all questions to the patient's mom's satisfaction and his mom has no further questions. Zabrina Wilson M.D. Pager: [phone] [facility] [address] [place] [address] [address] [place] [address] Office: [phone] Procedure Criteria Procedure Type: Elective COVID Risk Discussion: The surgeon/proceduralist and patient have discussed in detail the risk of exposure to and/or potential harm posed by the COVID-19 virus with having a surgery/procedure at this time versus the risk of delaying the surgery/procedure. It is not possible to know either the risk of delaying the surgery or procedure or chance of getting an infection with perfect accuracy, but a joint decision was made between the patient and the surgeon/proceduralist to proceed at this time with the scheduled surgery/procedure as indicated on the consent form. Inpatient E&M: 70637 Init Hosp L3
--- NOTE | 2020-04-25 16:13 | PCM.CON.CC ---
Problem List (1) GI bleed due to esophagitis Status: Chronic (2) Thrombocytopenia Status: Chronic (3) Pulmonary embolism on left Status: Chronic (4) Iron deficiency anemia Status: Chronic Qualifiers: Iron deficiency anemia type: unspecified iron deficiency Qualified Code(s): D50.9 - Iron deficiency anemia, unspecified (5) Chronic respiratory failure Status: Chronic Qualifiers: Respiratory failure complication: hypoxia and hypercapnia Qualified Code(s): J96.11 - Chronic respiratory failure with hypoxia; J96.12 - Chronic respiratory failure with hypercapnia (6) Cerebral palsy Status: Chronic Qualifiers: Cerebral palsy type: spastic quadriplegic Qualified Code(s): G80.0 - Spastic quadriplegic cerebral palsy Comment: Quadriplegic Severe mental retardation Chronic constipation PEG tube Reason for Consult Date of Consultation: 04/25/20 Reason for Consultation: Hypoxia History of Present Illness: The patient is a 40 year old M, with past medical history listed below and well-known to me from the outpatient office, who presented to [facility] on 04/25/2020 secondary to nausea and vomiting. Patient reportedly had a coffee-ground emesis earlier in the day. Patient later had been checked for residuals and also noted coffee grounds. There was also some concern for a possible emesis as patient was reportedly febrile when paramedics arrived for evaluation. History is somewhat limited. Patient has not had any significant change in medications. Patient is on Ativan for agitation. Patient's mother reports that he has been decreasing his gabapentin secondary to concerns for bradycardia. Patient reportedly was noted to be tachycardic and febrile at 100.3 ?F. Patient also hypertensive on presentation. There was some concern for pale conjunctiva. Chest x-ray was relatively unremarkable compared to previous. KUB showed a nonspecific bowel gas pattern. Laboratory work-up showed a hemoglobin of 12.9 and a white count of 10.5. Coagulation studies were within normal limits. UA was unremarkable. Patient's mother reports that he had been doing well up until yesterday. Patient does have a hernia around his colostomy that has been monitored. Surgical intervention has been delayed secondary to COVID-19. This does occasionally cause some irritation, but has not been associated with a GI bleed previously. Patient has been requiring his ventilator during the day, which she reports is a change. No change in ostomy output has been reported. Review of systems otherwise negative per the mother's report. Past Medical History Past Medical History (Chronic Problems): Chronic Problems (Last Updated 04/25/20 @ 12:[address] Gumaro Kohli MD) GI bleed due to esophagitis (Chronic) Acute and chronic respiratory failure with hypoxia (Chronic) Anemia in chronic illness (Chronic) Thrombocytopenia (Chronic) Pulmonary embolism on left (Chronic 06/14/19) Nonrheumatic mitral valve prolapse (Chronic) Iron deficiency anemia (Chronic) Chronic respiratory failure (Chronic) Cerebral palsy (Chronic) Quadriplegic Severe mental retardation Chronic constipation PEG tube Edema (Chronic) Medical History: Medical History (Last Updated 04/25/20 @ 12:[address] Gumaro Kohli MD) Thrombocytopenia (Chronic) D69.6 Pulmonary embolism on left (Chronic) Onset Date: 06/14/19 I26.99 Nonrheumatic mitral valve prolapse (Chronic) I34.1 Iron deficiency anemia (Chronic) D50.9 Chronic respiratory failure (Chronic) J96.10 Cerebral palsy (Chronic) G80.9 Quadriplegic Severe mental retardation Chronic constipation PEG tube Edema (Chronic) R60.9 Debility R53.81 History of seizure disorder Z86.69 Obesity E66.9 Redundant colon Q43.[address] Z93.0 Allergies cisapride monohydrate [From Propulsid] Allergy (Verified 04/25/20 09:23) Rash codeine Adverse Reaction (Verified 04/25/20 09:23) hallucinations metronidazole [From Flagyl] Adverse Reaction (Verified 04/25/20 09:23) Rash morphine Adverse Reaction (Verified 04/25/20 09:23) Hallucinations dust Allergy (Uncoded 04/25/20 09:23) Other Home Medications: Ambulatory Orders Medication Instructions Recorded Simethicone 40MG/0.6ML [Mylicon] 40 mg GT 4X/DAY 11/09/13 Pantoprazole Sodium [Protonix] 20 ml GT BID 08/09/14 Phenobarbital 60 mg GT BID 02/19/17 Cetirizine HCl [Zyrtec] 10 ml GT DAILY 02/04/18 Lactobacillus Acidophilus 1 cap GT DAILY 02/04/18 [Acidophilus] metoclopramide HCl 5 mg/5 mL oral 10 mg GT TID ml 09/16/18 solution Lorazepam [Ativan] 1 mg GT Q8 PRN 10/08/18 Cough Assist 1 dose .ROUTE .MEDSUPPLY 12/25/18 Ferrous Sulfate 5 ml GT DAILY 12/25/18 oxygen concentrator 1 dose .ROUTE .MEDSUPPLY 12/25/18 Baclofen [Ozobax] 20 mg GT Q6H 05/09/19 Lactose-Reduced Food/Fiber [Jevity 50 ml GT DAILY 05/09/19 1.2 South Liquid] Ondansetron HCl [Zofran] 5 ml PO DAILY PRN 05/09/19 Doxazosin Mesylate [Cardura] 2 mg GT DAILY #30 tab 07/11/19 gabapentin 250 mg/5 mL (5 mL) oral 150 mg PO 1200,1800 ml 08/03/19 solution Ascorbic Acid [Vitamin C] 500 mg GT DAILY 08/04/19 Gabapentin 100 mg GT 0000,0600 09/26/19 epinephrine 0.3 mg/0.3 mL 0.3 mg IM ONCE 10/24/19 injection, auto-injector Magnesium Hydroxide [Milk Of 30 ml GT DAILY PRN PRN 04/25/20 Magnesia] Plecanatide [Trulance] 3 mg GT DAILY 04/25/20 Surgical History: Surgical History (Last Reviewed 10/24/19 @ 13:19 by Promise Donnelly) Colostomy in place Z93.3 Heel cord lengthening bilaterally History of colostomy History of gastrostomy tube placement History of open reduction and internal fixation (ORIF) procedure Z98.890 left hip History of soft tissue release Bilateral hips and knees Status post insertion of intrathecal baclofen pump Z96.89 status post removal in March 2018. Surgical History: - - Baclofen pump, colostomy, G-tube, tracheostomy Psychiatric History: No pertinent psych hx Lives: With Family Smoking Status: Never smoker Alcohol: None Drugs: None - *Family History Maternal Family History: Family History (Last Reviewed 10/24/19 @ 13:19 by Promise Donnelly) Mother Hypertension Hepatitis C Father Hypertension Atrial fibrillation CAD (coronary artery disease) History Items: - - Mother with history of hypertension hepatitis C. Paternal Family History: Family History (Last Reviewed 10/24/19 @ 13:19 by Promise Donnelly) Mother Hypertension Hepatitis C Father Hypertension Atrial fibrillation CAD (coronary artery disease) History Items: - - Father with history of hypertension, coronary disease and atrial fibrillation. Review of Systems Unable to obtain accurate/complete ROS d/t: Baseline CP Objective: All imaging was personally reviewed. Chest x-ray appears unchanged compared to previous. - Physical Exam Vitals/I&O's: Vital Signs Temp Pulse Resp BP Pulse Ox 37.1 C 88 24 H 92/66 93 04/25/20 11:02 04/25/20 16:00 04/25/20 16:00 04/25/20 16:00 04/25/20 16:00 Oxygen Flow Rate (L/min) 4 Oxygen Delivery Method Mechanical Ventilator Weight: 71.5 kg Body Mass Index (BMI) 30.7 Finger Stick Blood Glucose 132 Intake and Output for Last 24 Hours 04/23/20 04/24/20 04/25/20 23:59 23:59 23:59 Intake Total 1197 / 1197 Output Total 275 / 275 Balance 922 / 922 General: Alert, No apparent distress, - - Good vent synchrony. HEENT: Atraumatic, PERRLA, EOMI, Normocephalic, - - No scleral icterus or injection noted Oral: Moist Mucosa, - - Macroglossia. Neck: Supple, No JVD, No Nodes, Trachea Midline, - - Tracheostomy is clean, dry and intact Lungs: No rhonchi, No wheeze, No rales, Diminished Cardiovascular: Normal S1, Normal S2, No murmurs, No rub noted, No Gallop, Tachycardic Abdomen: Bowel Sounds Present, Soft, Distended - Slightly, - - Reducible hernia noted around colostomy Extremities: No cyanosis, Clubbing, Edema Skin: - - Healing bruises across the abdomen Musculoskeletal: No Tenderness to Palpation of Joints or Extremities Lymphatic: No Cervical, Supraclavicular, or Inguinal Adenopathy Neurological: - - Appears to be at his baseline neurologic status. Multiple contractures are noted. Psych/Mental Status: Flat Affect Laboratory Results 04/25/20 07:55: WBC 10.5, RBC 4.41 L, Hgb 12.9 L, Hct 39.4 L, MCV 89.3, MCH 29.3, MCHC 32.7 D, RDW Std Deviation 44.5 H, RDW Coeff of Emilee 13.6, Plt Count 208, MPV 10.3, Immature Gran % (Auto) 0.200, Neut % (Auto) 50.4, Lymph % (Auto) 38.7, Butts % (Auto) 8.1, Eos % (Auto) 2.3, Baso % (Auto) 0.3, Absolute Neuts (auto) 5.3, Absolute Lymphs (auto) 4.07, Nucleated RBC % 0 04/25/20 07:55: PT 13.1, INR 1.0, APTT 37.3 H 04/25/20 07:55: Sodium 136, Potassium 4.0, Chloride 100, Carbon Dioxide 30.0, Anion Gap 6, BUN 22 H, Creatinine 0.51 L, Estim Creat Clear Calc 158.06, Est GFR (MDRD) Af Amer 235, Est GFR (MDRD) Non-Af 194, BUN/Creatinine Ratio 43.3 H, Glucose 105, Calcium 9.1, Total Bilirubin 0.30, AST 27, ALT 37, Alkaline Phosphatase 139 H, Total Protein 9.2 H, Albumin 3.9, Globulin 5.3 H, Albumin/Globulin Ratio 0.7 L 04/25/20 07:55: Lactic Acid 1.9 04/25/20 08:05: Urine Color Yellow, Urine Clarity Sl. Cloudy, Urine pH 8.0, Ur Specific [place] 1.010, Urine Protein 15 H, Urine Glucose (UA) Normal, Urine Ketones Negative, Urine Occult Blood Negative, Urine Nitrite Negative, Urine Bilirubin Negative, Urine Urobilinogen Normal, Ur Leukocyte Esterase Negative, Urine RBC 0 SEEN, Urine WBC 0 SEEN, Ur Squamous Epith Cells 0-5 SEEN, Urine Bacteria 0 SEEN, Urine Mucus 0 SEEN Current Medications Ascorbic Acid (Ascorbic Acid 500 Mg Tablet) 500 mg GT DAILY [facility] Baclofen (Baclofen 10 Mg Tablet) 20 mg GT Q6 [facility] Last Admin: 04/25/20 13:27 Dose: 20 mg Documented by: Doxazosin Mesylate (Doxazosin 1 Mg Tablet) 2 mg GT DAILY [facility] Ferrous Sulfate (Ferrous Sulfate 300 Mg/5 Ml Udc) 75 mg GT DAILY [facility] Gabapentin (Gabapentin 250 Mg/5 Ml Solution) 100 mg GT 0000,0600 [facility] Gabapentin (Gabapentin 250 Mg/5 Ml Solution) 150 mg PO 1200,1800 [facility] Heparin Sodium (Beef Lung) (Heparin Pf Lock 10 Units/Ml 50 Units/5 Ml Syringe) 50 units IV UD PRN PRN Reason: R Port Heparin Flush Sodium Chloride () 1,000 mls @ 60 mls/hr IV .[id number] [facility] Stop: 04/26/20 04:00 Last Admin: 04/25/20 13:39 Dose: 60 mls/hr Documented by: Pantoprazole Sodium 40 mg/ (Sodium Chloride) 110 mls @ 330 mls/hr IV Q12 [facility] Sodium Chloride () 500 mls @ 15 mls/hr IV PRN PRN PRN Reason: Blood Transfusion Lactobacillus Acidophilus (Lactobacillus Acidophilus) 1 tablet GT DAILY [facility] Loratadine (Loratadine 10 Mg Tablet) 10 mg GT DAILY [facility] Lorazepam (Lorazepam 1 Mg Tablet) 1 mg GT Q8H PRN PRN PRN Reason: AGITATION Magnesium Hydroxide (Magnesium Hydroxide 30 Ml Udc) 30 ml GT DAILY PRN PRN PRN Reason: Constipation Metoclopramide HCl (Metoclopramide 10 Mg/10 Ml Udc) 10 mg GT TID [facility] Last Admin: 04/25/20 13:28 Dose: 10 mg Documented by: Ondansetron HCl (Ondansetron 4 Mg/2 Ml Vial) 4 mg IV Q8H PRN PRN PRN Reason: NAUSEA/VOMITING Phenobarbital (Phenobarbital 20 Mg/5 Ml Udc) 60 mg GT BID [facility] Simethicone (Simethicone 40mg/0.6ml Bottle) 40 mg GT 4X/DAY [facility] Last Admin: 04/25/20 13:28 Dose: 40 mg Documented by: Sodium Chloride (0.9% Saline Lock 10 Ml Syringe) 10 - 40 ml IV UD PRN PRN Reason: R [place] Flush Sodium Chloride (0.9 % Nacl (Sterile) Posiflush 10 Ml) 10 - 40 ml IV UD PRN PRN Reason: Port access or dressing change Clinical Impression(s) from Imaging Studies Abdomen X-Ray 04/25/20 09:00 IMPRESSION: Nonspecific bowel gas pattern. A PEG tube is seen within the stomach. Contrast is seen within the urinary bladder. Electronically Signed: Matti Greer MD at 9:36 EST , Service support , Chest X-Ray 04/25/20 09:00 IMPRESSION: No acute abnormality is seen. Electronically Signed: Matti Greer MD at 9:34 EST , Service support , Assessment/Plan RECOMMENDATIONS: 1. Await endoscopy by surgery 2. Continue with Protonix. Await hampton culture 3. Monitor empirically off antibiotics 4. Possible discharge tomorrow pending EGD results 5. Continue home ventilator at baseline settings 6. 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 Possible upper GI bleed Patient with recent EGD showing esophagitis. Some concern for reported coffee grounds leading to current situation. Hemoglobin is improved compared to previous. Reasonable to place patient on IV twice daily. Surgery has been consulted and is planning a EGD for tomorrow. Pending the results, patient may be able to be discharged. Patient does have a known abdominal hernia close to his colostomy. Mother has been holding off on surgical correction secondary to COVID-19. This should be addressed as an outpatient. 2. Chronic hypoxic respiratory failure Patient currently on his home ventilator and tolerating well. Clinical suspicion for an element of hypoxia secondary to atelectasis. Patient does not have a significant infiltrate on chest x-ray to suggest an aspiration pneumonia at this time. Believe it is reasonable to monitor off of antibiotics for now. If patient were to develop leukocytosis or fever, antibiotic could be reinitiated. Pancultures have been sent. 3. Cerebral palsy/spastic quadriplegia/seizure disorder/GERD/history of PE Complicates care, management, recovery and prognosis. Okay to continue with baseline medications from my perspective. Inpatient E&M: 86891 Init Hosp L3
[2020-04-25] MEDS: GABAPENTIN 250 MG/5 ML SOLUTION 150 MG PO (17:22)
[2020-04-25 18:00] LABS: Hematocrit 34.6 % (40-54); Hemoglobin 11.2 g/dL (13.0-16.5)
[2020-04-25] MEDS: Lactated Ringers 1,000 ML 75 ML IV (19:35)
[2020-04-25] MEDS: Phenobarbital 20 MG/5 ML UDC 60 MG GT (21:31)
[2020-04-25] MEDS: LORazepam 1 MG Tablet GT (22:24)
[2020-04-25] MEDS: Acetaminophen 650 MG/20 ML UDC GT (22:24)
[2020-04-25] MEDS: Nystatin Ointment 1 APPLIC TOPICAL (22:24)
[2020-04-26] VITALS (24 sets, daily range): BP systolic 83–149; BP diastolic 48–106; PULSE 64–110; RESP 14–23; TEMP 36.2–36.9; O2SAT 90–98
--- NOTE | 2020-04-26 | ESO_PTH ---
PATIENT: KRISS MICHAEL LOC: [facility] U#:[id number] AGE/SX: 40/M ROOM: ICU05 RE04/25/[address]: Dr. Gumaro Kohli MD : 1980 BED: 1 DIS: 04/26/2020 SPEC #: [id number] RECD: 04/26/20 14:10 STATUS: JASMINA JOSE L #: [id number] ALLY: 04/26/20 00:[address]: Zabrina Wilson DEPT: SURGICAL PATHOLOGY RECD BY: Sandrine Wick ENTERED: 04/29/20 07:41 SP TYPE: ESOPH BX OTHR DR: MD Dr. Gumaro Echols MD Dr. John E Schinner, MD Tissues: Esophagus, NOS Procedures: Special Stain Group II Special Stain Group I Surgery Specimen Level IV GMS Stain (control) Alcian Blue/PAS (control) HEADER OPERATION: EGD (MAC) PRE-OP DIAGNOSIS: Coffee-ground emesis and aspiration TISSUE SUBMITTED: Esophageal biopsy, rule out kaushal MICROSCOPIC DIAGNOSIS Esophageal biopsy: Fragments of gastroesophageal mucosa with extensive ulceration, associated acute and chronic inflammation. Intestinal metaplasia (goblet cell metaplasia) is not identified. See comment. Tone 04/29/2020 COMMENT The fungal stains performed touch imprins, cytospin smear and permanent section are negative for organisms; match control are appropriate. Immediate interpretation of fungal stain on cytospin smear and touch imprint are reported to Dr. Wilson on 04/26/20. Alcian blue/PAS stain with matched control is also used in the evaluation of the specimen. MICROSCOPIC DESCRIPTION Slides are reviewed. GROSS DESCRIPTION Received fresh for OR consultation labeled with the patient's name is a specimen designated esophageal biopsy. The specimen consists of two fragments of parson-pink soft tissue and parson-white soft tissue measuring in aggregate 0.2 x 0.1 x 0.1 cm. A touch imprint and cytospin smear are prepared for GMS staining. The entire specimen is submitted in one cassette. / Tone 04/26/20 TC:2 CPT: 73294, 24973 x2, 54100
[2020-04-26] MEDS: Baclofen 10 MG Tablet 20 MG GT ×3 (00:08→11:14)
[2020-04-26] MEDS: GABAPENTIN 250 MG/5 ML SOLUTION 100 MG GT ×2 (00:10→06:42)
[2020-04-26 03:15] LABS: Absolute Lymphocyte Count 2.64 X10^3/uL (0.83-4.51); Absolute Neutrophil Count 4.4 X10^3/uL (2.0-7.7); Basophil# 0.01 X10^3/uL; Basophil% 0.1 % (0-1); Eosinophil# 0.15 X10^3/uL; Eosinophils% 1.9 % (0-5); Hematocrit 32.4 % (40-54); Hemoglobin 10.6 g/dL (13.0-16.5); Lymphocyte # 2.64 X10^3/ul (4.0); Lymphocyte % 33.1 % (19-41); Mean Corp Hgb Conc 32.7 g/dL (32-36); Mean Corpuscular Hgb 29.3 pg (27.0-32.0); Mean Corpuscular Volume 89.5 fL (80-94); Monocyte# 0.75 X10^3/uL; Monocyte% 9.4 % (0-10); NRBC Flagged by Analyzer 0 % (0-5); Neutrophil # 4.41 X10^3/uL (2.7-7.7); Neutrophil % 55.2 % (47-70); Platelet Count 163 K/mm3 (150-450); RBC Distribution Width CV 13.5 % (11.6-14.6); RBC Distribution Width SD 44.3 fl (35.1-43.9); Red Blood Count 3.62 M/mm3 (4.6-6.2)
[2020-04-26 03:32] LABS: Anion Gap 6 (5-15); BUN 17 mg/dL (7-18); BUN/Creat Ratio 54.8 RATIO (10-20); Calcium,Total 8.2 mg/dL (8.5-10.1); Chloride 105 mmol/L (98-107); Creatinine, Serum 0.31 mg/dL (0.70-1.30); EST Glomerular Filtration Rate 343 mL/min (>60); Est Glom Filt Rate - Afr Amer 415 mL/min (>60); Estimated Creatinine Clearance 228.49 ml/min; Glucose 80 mg/dL (74-106); Potassium 3.5 mmol/L (3.5-5.1); Sodium Level 139 mmol/L (136-145)
--- NOTE | 2020-04-26 05:55 | RAD_ITS ---
HISTORY: fever EXAM: XR Chest 1 View: COMPARISON: Yesterday FINDINGS: # of images incl. paperwork: 2 Tracheostomy tube remains. Right IJ single-lumen port catheter tip continues to terminate in the SVC. Pulmonary hypoexpansion remains. Elevation of the right hemidiaphragm is the same Heart is not enlarged. No acute osseous pathology perceived. Pulmonary vascularity is distinct. No effusions. RAD/Chest 1 View (Portable) IMPRESSION: No acute cardiopulmonary disease. No change. at 0647 Reported and signed by: Bakari Thacker MD Electronically Signed: Bakari Thacker MD at 6:46 EST Tel , Service support ,
[2020-04-26] MEDS: Lactated Ringers 1,000 ML 75 ML IV (07:08)
--- NOTE | 2020-04-26 07:16 | PN_ITS ---
Subjective: Patient did well overnight. Patient has remained on his ventilator while in the hospital, but oxygen requirements have been consistent. Patient does occasionally grimace, but has been tolerating his medications. Patient did have an element of hypotension this morning while sleeping but this resolved spontaneously when he was awoken. General: Alert, Non-Cooperative, - - Mild distress. HEENT: Atraumatic, PERRLA, EOMI Oral: Moist Mucosa, No Gingival or Mucosal Lesions/ Ulcerations Neck: Supple, No JVD, No Nodes, Trachea Midline, - Lungs: Clear to auscultation, No rhonchi, No wheeze, No rales, - - Symmetric expansion. Chest x-ray shows no change or infiltrate today compared to admission Cardiovascular: Regular rate, Regular Rhythm, Normal S1, Normal S2, No murmurs, No rub noted, No Gallop Abdomen: Bowel Sounds Present, Soft, Distended - Slightly, Tender - Some grimacing with palpation, especially around colostomy Extremities: No cyanosis, Clubbing, Edema Skin: - - No change from previous Musculoskeletal: No Tenderness to Palpation of Joints or Extremities Lymphatic: No Cervical, Supraclavicular, or Inguinal Adenopathy Neurological: - - Baseline neurologic status Psych/Mental Status: Restless Vital Signs Temp Pulse Resp BP Pulse Ox 36.9 C 86 15 117/78 95 04/26/20 02:00 04/26/20 06:00 04/26/20 06:00 04/26/20 06:00 04/26/20 06:00 Oxygen Flow Rate (L/min) 4 Oxygen Delivery Method Mechanical Ventilator Weight: 71.5 kg Body Mass Index (BMI) 30.7 Finger Stick Blood Glucose 132 Intake and Output for Last 24 Hours 04/24/20 04/25/20 04/26/20 23:59 23:59 23:59 Intake Total 1297 / 1297 1136.25 / 1136.25 Output Total 425 / 475 50 / 50 Balance 872 / 822 1086.25 / 1086.25 Labs (Last 48 Hours) 04/25/20 04/25/20 04/25/20 07:55 07:55 07:55 WBC 10.5 RBC 4.41 L Hgb 12.9 L Hct 39.4 L MCV 89.3 MCH 29.3 MCHC 32.7 D RDW Std Deviation 44.5 H RDW Coeff of Emilee 13.6 Plt Count 208 MPV 10.3 Immature Gran % (Auto) 0.200 Neut % (Auto) 50.4 Lymph % (Auto) 38.7 Leon % (Auto) 8.1 Eos % (Auto) 2.3 Baso % (Auto) 0.3 Absolute Neuts (auto) 5.3 Absolute Lymphs (auto) 4.07 Nucleated RBC % 0 PT 13.1 INR 1.0 APTT 37.3 H Sodium 136 Potassium 4.0 Chloride 100 Carbon Dioxide 30.0 Anion Gap 6 BUN 22 H Creatinine 0.51 L Estim Creat Clear Calc 158.06 Est GFR (MDRD) Af Amer 235 Est GFR (MDRD) Non-Af 194 BUN/Creatinine Ratio 43.3 H Glucose 105 Lactic Acid Calcium 9.1 Total Bilirubin 0.30 AST 27 ALT 37 Alkaline Phosphatase 139 H Total Protein 9.2 H Albumin 3.9 Globulin 5.3 H Albumin/Globulin Ratio 0.7 L Urine Color Urine Clarity Urine pH Ur Specific [place] Urine Protein Urine Glucose (UA) Urine Ketones Urine Occult Blood Urine Nitrite Urine Bilirubin Urine Urobilinogen Ur Leukocyte Esterase Urine RBC Urine WBC Ur Squamous Epith Cells Urine Bacteria Urine Mucus 04/25/20 04/25/20 04/25/20 07:55 08:05 17:45 WBC RBC Hgb 11.2 L Hct 34.6 L MCV MCH MCHC RDW Std Deviation RDW Coeff of Emilee Plt Count MPV Immature Gran % (Auto) Neut % (Auto) Lymph % (Auto) Leon % (Auto) Eos % (Auto) Baso % (Auto) Absolute Neuts (auto) Absolute Lymphs (auto) Nucleated RBC % PT INR APTT Sodium Potassium Chloride Carbon Dioxide Anion Gap BUN Creatinine Estim Creat Clear Calc Est GFR (MDRD) Af Amer Est GFR (MDRD) Non-Af BUN/Creatinine Ratio Glucose Lactic Acid 1.9 Calcium Total Bilirubin AST ALT Alkaline Phosphatase Total Protein Albumin Globulin Albumin/Globulin Ratio Urine Color Yellow Urine Clarity Sl. Cloudy Urine pH 8.0 Ur Specific [place] 1.010 Urine Protein 15 H Urine Glucose (UA) Normal Urine Ketones Negative Urine Occult Blood Negative Urine Nitrite Negative Urine Bilirubin Negative Urine Urobilinogen Normal Ur Leukocyte Esterase Negative Urine RBC 0 SEEN Urine WBC 0 SEEN Ur Squamous Epith Cells 0-5 SEEN Urine Bacteria 0 SEEN Urine Mucus 0 SEEN 04/26/20 04/26/20 03:10 03:10 WBC 8.0 RBC 3.62 L Hgb 10.6 L Hct 32.4 L MCV 89.5 MCH 29.3 MCHC 32.7 RDW Std Deviation 44.3 H RDW Coeff of Emilee 13.5 Plt Count 163 MPV 10.0 Immature Gran % (Auto) 0.300 Neut % (Auto) 55.2 Lymph % (Auto) 33.1 Leon % (Auto) 9.4 Eos % (Auto) 1.9 Baso % (Auto) 0.1 Absolute Neuts (auto) 4.4 Absolute Lymphs (auto) 2.64 Nucleated RBC % 0 PT INR APTT Sodium 139 Potassium 3.5 Chloride 105 Carbon Dioxide 28.0 Anion Gap 6 BUN 17 Creatinine 0.31 L Estim Creat Clear Calc 228.49 Est GFR (MDRD) Af Amer 415 Est GFR (MDRD) Non-Af 343 BUN/Creatinine Ratio 54.8 H Glucose 80 Lactic Acid Calcium 8.2 L Total Bilirubin AST ALT Alkaline Phosphatase Total Protein Albumin Globulin Albumin/Globulin Ratio Urine Color Urine Clarity Urine pH Ur Specific [place] Urine Protein Urine Glucose (UA) Urine Ketones Urine Occult Blood Urine Nitrite Urine Bilirubin Urine Urobilinogen Ur Leukocyte Esterase Urine RBC Urine WBC Ur Squamous Epith Cells Urine Bacteria Urine Mucus Clinical Impression(s) from Imaging Studies Abdomen X-Ray 04/25/20 09:00 IMPRESSION: Nonspecific bowel gas pattern. A PEG tube is seen within the stomach. Contrast is seen within the urinary bladder. Electronically Signed: Matti Greer MD at 9:36 EST , Service support , Chest X-Ray 04/25/20 09:00 IMPRESSION: No acute abnormality is seen. Electronically Signed: Matti Greer MD at 9:34 EST , Service support , Chest X-Ray 04/26/20 05:55 IMPRESSION: No acute cardiopulmonary disease. No change. at 0647 Reported and signed by: Bakari Thacker MD Electronically Signed: Bakari Thacker MD at 6:46 EST Tel , Service support , Medical Necessity - Tobacco Use Smoking Status: Never smoker Assessment/Plan RECOMMENDATIONS: 1. Await endoscopy by surgery 2. Continue with Protonix. Await hampton culture 3. Monitor empirically off antibiotics 4. Possible discharge later today pending EGD results 5. Continue home ventilator at baseline settings 6. 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 Possible upper GI bleed Patient with recent EGD showing esophagitis. Some concern for reported coffee grounds leading to current situation. Hemoglobin has drifted down since admission. Reasonable to place patient on IV twice daily. Surgery has been consulted and is planning a EGD for later today. Pending the results, patient may be able to be discharged. Patient does have a known abdominal hernia close to his colostomy. Mother has been holding off on surgical correction secondary to COVID-19. This should be addressed as an outpatient. Patient has not had significant fever or leukocytosis to suggest infectious etiology 2. Chronic hypoxic respiratory failure Patient currently on his home ventilator and tolerating well. Clinical suspicion for an element of hypoxia secondary to atelectasis. Patient does not have a significant infiltrate on chest x-ray to suggest an aspiration pneumonia at this time. Believe it is reasonable to monitor off of antibiotics for now. If patient were to develop leukocytosis or fever, antibiotic could be rein itiated. Pancultures have been sent. Chest imaging is not suggestive of an aspiration event 3. Cerebral palsy/spastic quadriplegia/seizure disorder/GERD/history of PE Complicates care, management, recovery and prognosis. Okay to continue with baseline medications from my perspective. Inpatient E&M: 33742 [facility] Hosp L3
[2020-04-26] MEDS: Ferrous Sulfate 300 MG/5 ML UDC 75 MG GT (10:01)
[2020-04-26] MEDS: Doxazosin 1 MG Tablet 2 MG GT (10:01)
[2020-04-26] MEDS: Simethicone 40MG/0.6ML Bottle 40 MG GT ×2 (10:01→15:05)
[2020-04-26] MEDS: Loratadine 10 MG Tablet GT (10:01)
[2020-04-26] MEDS: PLECANATIDE 3 MG TABLET PO (10:03)
[2020-04-26] MEDS: Ascorbic Acid 500 MG Tablet GT (10:03)
[2020-04-26] MEDS: Phenobarbital 20 MG/5 ML UDC 60 MG GT (10:16)
--- NOTE | 2020-04-26 10:50 | CASEMGMT ---
RE GUADALUPE assessment: RN ANAYELI to pt's room for initial transition planning/care coordination assessment. Pt's mom, Matteo Diaz, @ bedside. RN ANAYELI introduced self and role at [facility], mother voices understanding at this time. Mom answers all questions appropriately at this time. Care providers, pharmacy, and demographics verified at this time. PCP: [facility] Specialists: Mariann, cardio; Bello, pulm; Beatriz, ENT; Tab, eye; Lisa, neuro, Jabour--GI Preferred Pharmacy: [facility] Camp Insurance: [facility], [place] Prescription Benefit: Yes, [employer] LNOK: Matteo Diaz, mother; Michael Diaz III, father Living Arrangements/HHC: Pt lives with parents in 1 story home and pt has nurses 10-12 daily thru [facility] ([facility]) HHC: SN and ST. Also has aides 4-5nights/week. Call placed to [facility] and spoke w/Dayo. She is aware pt has been admitted to [facility] and may possibly be ready for discharge over the weekend. Pt is active with [facility] and receives SN. Dayo states ST just did an eval on 04/22 and states pt most likely has ST as well. H/P faxed to [facility] at this time. Transportation: Pt's family unable to transfer pt at this time d/t they do not have a W/C van available. Mother states pt will need ambulance transport at discharge. DME: Pt has the following DME: feeding pump, w/c, hospital bed, ramp, cough assist device, ceiling tract, elevator to basement, estefany lift, and concentrator/ventilator thru [facility]. Pt uses ventilator @ HS and occasionally during the day. He has O2 bleed-in through the vent Mother states no need for any further DME at this time. Pt's CM thru [facility] of DD is Trinity Conn and mother would like her notified. LAYA Steven states she already notified her previously. Mom states no concerns with going home at time of discharge. Pt is disabled. Mom states no further concerns/needs at this time. Family Goal: Home w/ family and resumption of N HHC: SN and ST. Also resumption of aides. Plan: Home w/ family and resumption of N HHC: SN and ST. Also resumption of aides. Green sheet on chart for instructions for resumption of HHC and to notify [facility] of DD of pt's discharge. Janice LEVINN RN CM
[2020-04-26] MEDS: Chlorhexidine 15 ML PO (11:08)
[2020-04-26] MEDS: GABAPENTIN 250 MG/5 ML SOLUTION 150 MG PO (11:14)
--- NOTE | 2020-04-26 11:26 | CASEMGMT ---
Social Work VM left with pt Board of DD Senior [employer] Designer Trinity Fabien informing of admission. SW left this SW number for return call if needed. Discharge orders will need faxed to Board of DD when appropriate. . ERIC Zarco
--- NOTE | 2020-04-26 11:42 | CASEMGMT ---
Social Work Parents, Judith and Michael Diaz are pt legal guardians. ERIC Pearce
--- NOTE | 2020-04-26 13:14 | NURSING ---
Was asked by nursing to change patient's ostomy appliance. Pt's mother did have a high output pouch to apply. removed current appliance. there was approx 75cc's liquid brown/green stool noted in the appliance. peristomal skin is intact. stoma sits at skin level and is oval in shape. measures approx 2 1/2. patient does have a parastomal hernia, which was present at last admission as well. Mother states that they had been to a surgeon in [place] but still do not know if they will be able to fix the hernia yet. Mother states they are still able to get about a week per appliance. applied a new 2 piece flat [place] with a small amount of stoma paste. Did place a small half [place] of [place] to the left lateral stomal edge d/t a small crease per mother's request. pt tolerated well. mother denies further needs at this time.
[2020-04-26] MEDS: fentaNYL 100 MCG/2 ML Ampul 50 MCG IV (13:40)
[2020-04-26] MEDS: Propofol 200 MG/20 ML Vial 40 MG IV BOLUS (13:40)
[2020-04-26] MEDS: Propofol 200 MG/20 ML Vial 20 MG IV BOLUS (13:45)
--- NOTE | 2020-04-26 13:52 | PCM.OP.PRO ---
Problem List (1) GI bleed due to esophagitis Status: Chronic (2) Thrombocytopenia Status: Chronic (3) Pulmonary embolism on left Status: Chronic (4) Iron deficiency anemia Status: Chronic Qualifiers: Iron deficiency anemia type: unspecified iron deficiency Qualified Code(s): D50.9 - Iron deficiency anemia, unspecified (5) Chronic respiratory failure Status: Chronic Qualifiers: Respiratory failure complication: hypoxia and hypercapnia Qualified Code(s): J96.11 - Chronic respiratory failure with hypoxia; J96.12 - Chronic respiratory failure with hypercapnia (6) Cerebral palsy Status: Chronic Qualifiers: Cerebral palsy type: spastic quadriplegic Qualified Code(s): G80.0 - Spastic quadriplegic cerebral palsy Comment: Quadriplegic Severe mental retardation Chronic constipation PEG tube Procedure Report Date of Procedure: 04/26/20 - Conscious sedation CONSCIOUS SEDATION REPORT BRIEF HISTORY OF PRESENT ILLNESS: The patient is a 40-year-old male who presented to [facility] for coffee ground emesis. Patient has MRCP and is well-known to me from previous admissions and outpatient office. I was asked to provide conscious sedation for an EGD for evaluation. This procedure was completed independent and separate from medical management completed earlier in the day. After timeout procedure, a bite block was placed and medications were administered. PHYSICAL EXAMINATION: Physical exam is unchanged compared to note documented earlier in the day. Patient does have macroglossia, but this was able to be reduced once patient was given anesthesia ASA Class: III DESCRIPTION OF PROCEDURE: After confirmation of informed consent, the patient's anesthesia plan was reviewed in detail. Propofol was chosen. Risks and benefits were reviewed with parents and the they agreed to proceed. At 1:40 PM, the patient was given 40 mg of propofol. The patient required a total of 60 mg of propofol throughout the procedure to achieve appropriate sedation. The EGD was performed without complication. Patient appeared to have some esophageal candidiasis and some mild ulcers. See surgical documentation for full description. The patient was monitored until 1:52 PM, at which time the patient reached their baseline mental status and function. The patient tolerated the procedure well. COMPLICATIONS: None ESTIMATED BLOOD LOSS: None RECOMMENDATIONS: Okay to recover in usual fashion. 9xxxx: Other Procedure See Report - 40055 -independent of previous medical management
--- NOTE | 2020-04-26 13:54 | DCINST_ITS ---
- Discharge Diagnoses Current Active Problems: Current Active and Chronic Problems (Last Updated 04/25/20 @ 12:[address] Gumaro Kohli MD) GI bleed due to esophagitis (Chronic) Acute and chronic respiratory failure with hypoxia (Chronic) Anemia in chronic illness (Chronic) Thrombocytopenia (Chronic) Pulmonary embolism on left (Chronic 06/14/19) Nonrheumatic mitral valve prolapse (Chronic) Iron deficiency anemia (Chronic) Chronic respiratory failure (Chronic) Cerebral palsy (Chronic) Quadriplegic Severe mental retardation Chronic constipation PEG tube Edema (Chronic) You will use the following diet at home:: Other - Continue tube feeds as before. Call your doctor if you observe: Fever of 101 or Higher, Shortness of breath, Dizziness, Swelling in the ankles, Prolonged hiccoughing, Increased palpitations (irregular heartbeat), Uncontrolled pain Allergies/Adverse Reactions: Allergies cisapride monohydrate [From Propulsid] Allergy (Verified 04/25/20 09:23) Rash codeine Adverse Reaction (Verified 04/25/20 09:23) hallucinations metronidazole [From Flagyl] Adverse Reaction (Verified 04/25/20 09:23) Rash morphine Adverse Reaction (Verified 04/25/20 09:23) Hallucinations dust Allergy (Uncoded 04/25/20 09:23) Other Medications to take at Discharge Simethicone 40MG/0.6ML [Mylicon] 40 mg GT 4X/DAY 11/09/13 Phenobarbital 60 mg GT BID 02/19/17 Cetirizine HCl [Zyrtec] 10 ml GT DAILY 02/04/18 Lactobacillus Acidophilus [Acidophilus] 1 cap GT DAILY 02/04/18 metoclopramide HCl 5 mg/5 mL oral solution 10 mg GT TID ml 09/16/18 Lorazepam [Ativan] 1 mg GT Q8 PRN 10/08/18 Cough Assist 1 dose .ROUTE .MEDSUPPLY 12/25/18 Ferrous Sulfate 5 ml GT DAILY 12/25/18 oxygen concentrator 1 dose .ROUTE .MEDSUPPLY 12/25/18 Baclofen [Ozobax] 20 mg GT Q6H 05/09/19 Lactose-Reduced Food/Fiber [Jevity 1.2 South Liquid] 50 ml GT DAILY 05/09/19 Ondansetron HCl [Zofran] 5 ml PO DAILY PRN 05/09/19 Doxazosin Mesylate [Cardura] 2 mg GT DAILY #30 tab 07/11/19 gabapentin 250 mg/5 mL (5 mL) oral solution 150 mg PO 1200,1800 ml 08/03/19 Ascorbic Acid [Vitamin C] 500 mg GT DAILY 08/04/19 Gabapentin 100 mg GT 0000,0600 09/26/19 epinephrine 0.3 mg/0.3 mL injection, auto-injector 0.3 mg IM ONCE 10/24/19 Magnesium Hydroxide [Milk Of Magnesia] 30 ml GT DAILY PRN PRN 04/25/20 Plecanatide [Trulance] 3 mg GT DAILY 04/25/20 Fluconazole [Diflucan] 200 mg GT DAILY #14 tab 04/26/20 Pantoprazole Sodium [Protonix] 40 mg GT BID #60 tab 04/26/20 Sucralfate [Carafate] 1 gm GT 4X/DAY #90 tab 04/26/20 The following prescriptions were given: Sucralfate [Carafate] 1 gm GT 4X/DAY #90 tab Transmission Status: Pending to [facility] Fluconazole [Diflucan] 200 mg GT DAILY #14 tab Transmission Status: Pending to [facility] Pantoprazole Sodium [Protonix] 40 mg GT BID #60 tab Transmission Status: Pending to [facility] Primary Care Physician: Timmy oCnn MD [Primary Care Provider] - Please follow up with your Primary Care Physician in: 1-2 weeks. Test Results: Test results from this visit will be discussed in further detail at your follow- up appointment, if applicable.
--- NOTE | 2020-04-26 14:03 | DCINST_ITS ---
- Discharge Diagnoses Current Active Problems: Current Active and Chronic Problems (Last Updated 04/25/20 @ 12:[address] Gumaro Kohli MD) GI bleed due to esophagitis (Chronic) Acute and chronic respiratory failure with hypoxia (Chronic) Anemia in chronic illness (Chronic) Thrombocytopenia (Chronic) Pulmonary embolism on left (Chronic 06/14/19) Nonrheumatic mitral valve prolapse (Chronic) Iron deficiency anemia (Chronic) Chronic respiratory failure (Chronic) Cerebral palsy (Chronic) Quadriplegic Severe mental retardation Chronic constipation PEG tube Edema (Chronic) You will use the following diet at home:: Other - NPO. Continue tube feeds. Call your doctor if you observe: Fever of 101 or Higher, Shortness of breath, Dizziness, Swelling in the ankles, Prolonged hiccoughing, Increased palpitations (irregular heartbeat), Uncontrolled pain Allergies/Adverse Reactions: Allergies cisapride monohydrate [From Propulsid] Allergy (Verified 04/25/20 09:23) Rash codeine Adverse Reaction (Verified 04/25/20 09:23) hallucinations metronidazole [From Flagyl] Adverse Reaction (Verified 04/25/20 09:23) Rash morphine Adverse Reaction (Verified 04/25/20 09:23) Hallucinations dust Allergy (Uncoded 04/25/20 09:23) Other Medications to take at Discharge Simethicone 40MG/0.6ML [Mylicon] 40 mg GT 4X/DAY 11/09/13 Phenobarbital 60 mg GT BID 02/19/17 Cetirizine HCl [Zyrtec] 10 ml GT DAILY 02/04/18 Lactobacillus Acidophilus [Acidophilus] 1 cap GT DAILY 02/04/18 metoclopramide HCl 5 mg/5 mL oral solution 10 mg GT TID ml 09/16/18 Lorazepam [Ativan] 1 mg GT Q8 PRN 10/08/18 Cough Assist 1 dose .ROUTE .MEDSUPPLY 12/25/18 Ferrous Sulfate 5 ml GT DAILY 12/25/18 oxygen concentrator 1 dose .ROUTE .MEDSUPPLY 12/25/18 Baclofen [Ozobax] 20 mg GT Q6H 05/09/19 Lactose-Reduced Food/Fiber [Jevity 1.2 South Liquid] 50 ml GT DAILY 05/09/19 Ondansetron HCl [Zofran] 5 ml PO DAILY PRN 05/09/19 Doxazosin Mesylate [Cardura] 2 mg GT DAILY #30 tab 07/11/19 gabapentin 250 mg/5 mL (5 mL) oral solution 150 mg PO 1200,1800 ml 08/03/19 Ascorbic Acid [Vitamin C] 500 mg GT DAILY 08/04/19 Gabapentin 100 mg GT 0000,0600 09/26/19 epinephrine 0.3 mg/0.3 mL injection, auto-injector 0.3 mg IM ONCE 10/24/19 Magnesium Hydroxide [Milk Of Magnesia] 30 ml GT DAILY PRN PRN 04/25/20 Plecanatide [Trulance] 3 mg GT DAILY 04/25/20 Fluconazole [Diflucan] 200 mg GT DAILY 14 Days #300 ml 04/26/20 Pantoprazole Sodium [Protonix] 40 mg GT BID #60 tab 04/26/20 Sucralfate [Carafate] 1 gm GT 4X/DAY #90 tab 04/26/20 The following prescriptions were given: Sucralfate [Carafate] 1 gm GT 4X/DAY #90 tab Transmission Status: Received by [facility] Fluconazole [Diflucan] 200 mg GT DAILY 14 Days #300 ml Transmission Status: Pending to [facility] Pantoprazole Sodium [Protonix] 40 mg GT BID #60 tab Transmission Status: Received by [facility] Primary Care Physician: Timmy Conn MD [Primary Care Provider] - Please follow up with your Primary Care Physician in: 1-2 weeks. Test Results: Test results from this visit will be discussed in further detail at your follow- up appointment, if applicable.
--- NOTE | 2020-04-26 14:23 | CASEMGMT ---
RE GUADALUPE NOTE: Pt being discharged today. Call placed to Dayo @ [facility] and she was made aware. Dayo states LAUREN will be Wednesday. Pt's mom made aware. Mom asks if there is any way that [facility] nurses can come out tomorrow/Sat, as she states she has not slept much this past week. Call placed back to Dayo and she was made aware of same. Dayo states she will look into re-arranging staff to try and do LAUREN to have nurse available tomorrow, but she is not sure if this can be arranged. She states the on-call nurse will contact pt's mom tomorrow to let her know. Pt's mom made aware. Discharge instructions and LAUREN order faxed to [facility] at this time. D/C summary to be faxed when it is available. Janice BAL RN, CM
--- NOTE | 2020-04-26 14:36 | OP.CCLET_ITS ---
04/26/2020 Timmy Conn [address] [place] [address] Re : Upper GI endoscopy procedure for Dale Diaz Dear Dr. Conn This procedure was performed on Sunday, April 26, 2020. My impressions and recommendations are as follows: Impressions : - LA Grade D candidiasis esophagitis. Biopsied. - Non-bleeding gastric ulcers with no stigmata of bleeding. - Normal examined duodenum. Recommendations : - Await pathology results. - Discharge patient to home [Means]. - Use Protonix (pantoprazole) 40 mg PO BID. - Use sucralfate tablets 1 gram PO QID for 1 month. - Diflucan (fluconazole) 200 mg PO daily [Duration]. - Continue present medications. My findings are described in the full procedure note, which is enclosed. If I can be of further assistance, please feel free to contact me at Doctor phone number(s): , Work: . Sincerely, MD Zabrina Brown MD 04/26/2020 2:35:44 PM This report has been signed electronically.
--- NOTE | 2020-04-26 14:36 | OP.EGD_ITS ---
Patient Name: Dale Diaz Procedure Date: 04/26/2020 1:37 PM Date of : 1980 Age: 40 Procedure: Upper GI endoscopy Indications: Coffee-ground emesis Providers: Zabrina Wilson MD Medicines: Monitored Anesthesia Care Patient Profile: This is a 40 year old male. Complications: No immediate complications. Procedure: Pre-Anesthesia Assessment: - Prior to the procedure, a History and Physical was performed, and patient medications and allergies were reviewed. The patient's tolerance of previous anesthesia was also reviewed. The risks and benefits of the procedure and the sedation options and risks were discussed with the patient. All questions were answered, and informed consent was obtained. Prior Anticoagulants: The patient has taken no previous anticoagulant or antiplatelet agents. ASA Grade Assessment: Per Supervisory Cbp Officer. After reviewing the risks and benefits, the patient was deemed in satisfactory condition to undergo the procedure. After obtaining informed consent, the endoscope was passed under direct vision. Throughout the procedure, the patient's blood pressure, pulse, and oxygen saturations were monitored continuously. The gastroscope was introduced through the mouth, and advanced to the second part of duodenum. The upper GI endoscopy was accomplished without difficulty. The patient tolerated the procedure well. Scope In: 1:42:00 PM Scope Out: 1:46:56 PM Total Procedure Duration Time 0 hours 4 minutes 56 seconds Findings: LA Grade D (one or more mucosal breaks involving at least 75% of esophageal circumference) esophagitis with no active (but likley source of coffee ground emesis) was found 25 to 35 cm from the incisors. Biopsies were taken with a cold forceps for histology. Few non-bleeding superficial gastric ulcers with no stigmata of bleeding were found in the gastric antrum. The largest lesion was 3 mm in largest dimension. The examined duodenum was normal. Impression: - LA Grade D candidiasis esophagitis. Biopsied. - Non-bleeding gastric ulcers with no stigmata of bleeding. - Normal examined duodenum. Recommendation: - Await pathology results. - Discharge patient to home [Means]. - Use Protonix (pantoprazole) 40 mg PO BID. - Use sucralfate tablets 1 gram PO QID for 1 month. - Diflucan (fluconazole) 200 mg PO daily [Duration]. - Continue present medications. Procedure Code(s): --- Professional --- 38561, Esophagogastroduodenoscopy, flexible, transoral; with biopsy, single or multiple Diagnosis Code(s): --- Professional --- B37.81, Candidal esophagitis K25.9, Gastric ulcer, unspecified as acute or chronic, without hemorrhage or perforation K92.0, Hematemesis CPT copyright 2017 [employer]. All rights reserved. The codes documented in this report are preliminary and upon health information coder review may be revised to meet current compliance requirements. MD Zabrina Brown MD 04/26/2020 2:35:44 PM This report has been signed electronically. Number of Addenda: 0 Note Initiated On: 04/26/2020 1:37 PM
[2020-04-26] MEDS: Ondansetron 4 MG/2 ML Vial IV (15:03)
[2020-04-26] MEDS: Fluconazole 100 MG Tablet 200 MG GT (15:04)
[2020-04-26] MEDS: Sucralfate 1 GM Tablet GT (15:04)
[2020-04-26] MEDS: Metoclopramide 10 MG/10 ML UDC GT (15:05)
[2020-04-26] MEDS: 0.9% Saline Lock 10 ML Syringe IV (16:12)
--- NOTE | 2020-04-26 16:39 | DS.PCM_ITS ---
Discharge Date and Diagnosis Date of Admission: 04/25/20 Date of Discharge: 04/26/20 - Primary Discharge Diagnosis Acute Problems: #1 coffee-ground emesis/upper GI bleed. #2 gastric ulcers, nonbleeding. #3 esophageal candidiasis. #4 aspiration pneumonia, ruled out. #5 chronic anemia. - Secondary Discharge Diagnosis Chronic Problems: Chronic Problems (Last Updated 04/25/20 @ 12:[address] Gumaro Kohli MD) GI bleed due to esophagitis (Chronic) Acute and chronic respiratory failure with hypoxia (Chronic) Anemia in chronic illness (Chronic) Thrombocytopenia (Chronic) Pulmonary embolism on left (Chronic 06/14/19) Nonrheumatic mitral valve prolapse (Chronic) Iron deficiency anemia (Chronic) Chronic respiratory failure (Chronic) Cerebral palsy (Chronic) Quadriplegic Severe mental retardation Chronic constipation PEG tube Edema (Chronic) Hospital Course and Treatment Imaging Results: Clinical Impression(s) from Imaging Studies Abdomen X-Ray 04/25/20 09:00 IMPRESSION: Nonspecific bowel gas pattern. A PEG tube is seen within the stomach. Contrast is seen within the urinary bladder. Electronically Signed: Matti Greer MD at 9:36 EST , Service support , Chest X-Ray 04/25/20 09:00 IMPRESSION: No acute abnormality is seen. Electronically Signed: Matti Greer MD at 9:34 EST , Service support , Chest X-Ray 04/26/20 05:55 IMPRESSION: No acute cardiopulmonary disease. No change. at 0647 Reported and signed by: Bakari Thacker MD Electronically Signed: Bakari Thacker MD at 6:46 EST Tel , Service support , Dr. Monsalve, critical care. Dr. Wilson, general surgery. Operations: None Procedures: EGD Summary of Care Provided: Patient seen and examined on the day of discharge and appeared to be stable for discharge home. He underwent upper EGD, found to have gastric ulcers and those are nonbleeding and also found to have esophageal candidiasis. He remained afebrile, other vital signs remained stable. The patient is a 40 year old M presented to the emergency room because of nausea, vomiting and coffee-ground emesis and there was questionable aspiration. He had a spike of low-grade fever in the ED. Chest x-ray showed no acute findings. There was a concern that he may have aspiration pneumonia but after that spike of fever, patient remained afebrile and had no leukocytosis. Aspiration pneumonia ruled out. Patient was treated with IV Protonix twice daily. H&H were monitored and his hemoglobin and MICU remained stable. General surgery consulted and patient underwent upper EGD, found to have esophageal candidiasis and nonbleeding gastric ulcers. There was no indication for blood transfusion. Other routine blood work was unremarkable. After the procedure, patient did very well. He was started on Diflucan suspension as well as Protonix and Carafate. Patient discharged home in a stable condition, discharged on Diflucan suspension 200 mg GT daily for 2 weeks, discharged on Protonix 40 mg p.o. twice daily as well as Carafate 1 g 4 times a day, continued previous home medications without any changes, recommended follow-up with PCP in 1 to 2 weeks. - Physical Exam Vitals/I&O's: Vital Signs Temp Pulse Resp BP Pulse Ox 97.6 F L 93 14 111/75 95 04/26/20 16:16 04/26/20 16:16 04/26/20 16:16 04/26/20 16:16 04/26/20 16:16 Oxygen Flow Rate (L/min) 4 Oxygen Delivery Method Mechanical Ventilator Weight: 159 lb 2.78 oz Body Mass Index (BMI) 30.7 Finger Stick Blood Glucose 132 Intake and Output for Last 24 Hours 04/24/20 04/25/20 04/26/20 23:59 23:59 23:59 Intake Total 1297 / 1297 2486.25 / 2486.25 Output Total 425 / 475 250 / 250 Balance 872 / 822 2236.25 / 2236.25 General: - - Awake, open eyes spontaneously, nonverbal. Severe MRDD, spastic quadriplegia. HEENT: Atraumatic, PERRLA, EOMI, - - Tracheostomy in place. Oral: Moist Mucosa, No Gingival or Mucosal Lesions/ Ulcerations Neck: Supple, No JVD, Negative Carotid Bruits, Trachea Midline, Thyroid Normal Size and Texture Lungs: Clear to auscultation, Normal air movement, No rhonchi, No wheeze, No rales, Diminished Cardiovascular: Regular rate, Regular Rhythm, Normal S1, Normal S2, PMI Normal Abdomen: Bowel Sounds Present, Soft, Non Tender, Non-Distended, No Hepato- splenomegaly, - - PEG tube in place. Extremities: No clubbing, No cyanosis, Edema Skin: No rashes, No breakdown Lymphatic: No Cervical, Supraclavicular, or Inguinal Adenopathy Neurological: - - Cerebral palsy, nonverbal, not following commands. Spastic quadriplegia. Psych/Mental Status: - - Unable to assess. Microbiology Past 72 Hours 04/25/20 08:05 Urine Catheter - Catheter Urine Culture - Preliminary Culture exhibits no growth. Laboratory Results 04/25/20 17:45: Hgb 11.2 L, Hct 34.6 L 04/26/20 03:10: WBC 8.0, RBC 3.62 L, Hgb 10.6 L, Hct 32.4 L, MCV 89.5, MCH 29.3, MCHC 32.7, RDW Std Deviation 44.3 H, RDW Coeff of Emilee 13.5, Plt Count 163, MPV 10.0, Immature Gran % (Auto) 0.300, Neut % (Auto) 55.2, Lymph % (Auto) 33.1, [place] % (Auto) 9.4, Eos % (Auto) 1.9, Baso % (Auto) 0.1, Absolute Neuts (auto) 4.4, Absolute Lymphs (auto) 2.64, Nucleated RBC % 0 04/26/20 03:10: Sodium 139, Potassium 3.5, Chloride 105, Carbon Dioxide 28.0, Anion Gap 6, BUN 17, Creatinine 0.31 L, Estim Creat Clear Calc 228.49, Est GFR (MDRD) Af Amer 415, Est GFR (MDRD) Non-Af 343, BUN/Creatinine Ratio 54.8 H, Glucose 80, Calcium 8.2 L Current Medications Acetaminophen (Acetaminophen 650 Mg/20 Ml Udc) 650 mg GT Q6H PRN PRN PRN Reason: Pain 1-10 or Fever Last Admin: 04/25/20 22:24 Dose: 650 mg Documented by: Ascorbic Acid (Ascorbic Acid 500 Mg Tablet) 500 mg GT DAILY [facility] Last Admin: 04/26/20 10:03 Dose: 500 mg Documented by: Baclofen (Baclofen 10 Mg Tablet) 20 mg GT Q6 [facility] Last Admin: 04/26/20 11:14 Dose: 20 mg Documented by: Chlorhexidine Gluconate (Chlorhexidine 15 Ml) 15 ml PO BID [facility] Last Admin: 04/26/20 11:08 Dose: 15 ml Documented by: Doxazosin Mesylate (Doxazosin 1 Mg Tablet) 2 mg GT DAILY [facility] Last Admin: 04/26/20 10:01 Dose: 2 mg Documented by: Ferrous Sulfate (Ferrous Sulfate 300 Mg/5 Ml [facility]) 75 mg GT DAILY [facility] Last Admin: 04/26/20 10:01 Dose: 75 mg Documented by: Fluconazole (Fluconazole 100 Mg Tablet) 200 mg GT DAILY [facility] Last Admin: 04/26/20 15:04 Dose: 200 mg Documented by: Gabapentin (Gabapentin 250 Mg/5 Ml Solution) 100 mg GT 0000,0600 [facility] Last Admin: 04/26/20 06:42 Dose: 100 mg Documented by: Gabapentin (Gabapentin 250 Mg/5 Ml Solution) 150 mg PO 1200,1800 [facility] Last Admin: 04/26/20 11:14 Dose: 150 mg Documented by: Heparin Sodium (Beef Lung) (Heparin Pf Lock 10 Units/Ml 50 Units/5 Ml Syringe) 50 units IV UD PRN PRN Reason: R Port Heparin Flush Last Admin: 04/26/20 16:13 Dose: 50 units Documented by: Pantoprazole Sodium 40 mg/ (Sodium Chloride) 110 mls @ 330 mls/hr IV Q12 [facility] Last Infusion: 04/26/20 10:54 Dose: Infused Documented by: Sodium Chloride () 500 mls @ 15 mls/hr IV PRN PRN PRN Reason: Blood Transfusion Lactated Ringer's () 1,000 mls @ 75 mls/hr IV .[id number] [facility] Last Admin: 04/26/20 07:08 Dose: 75 mls/hr Documented by: Lactobacillus Acidophilus (Lactobacillus Acidophilus) 1 tablet GT DAILY [facility] Last Admin: 04/26/20 10:02 Dose: 1 tablet Documented by: Loratadine (Loratadine 10 Mg Tablet) 10 mg GT DAILY [facility] Last Admin: 04/26/20 10:01 Dose: 10 mg Documented by: Lorazepam (Lorazepam 1 Mg Tablet) 1 mg GT Q8H PRN PRN PRN Reason: AGITATION Last Admin: 04/25/20 22:24 Dose: 1 mg Documented by: Magnesium Hydroxide (Magnesium Hydroxide 30 Ml Udc) 30 ml GT DAILY PRN PRN PRN Reason: Constipation Metoclopramide HCl (Metoclopramide 10 Mg/10 Ml Udc) 10 mg GT TID [facility] Last Admin: 04/26/20 15:05 Dose: 10 mg Documented by: Nystatin (Nystatin Ointment) 1 applic TOPICAL TID [facility]; Protocol Last Admin: 04/25/20 22:24 Dose: 1 applic Documented by: Ondansetron HCl (Ondansetron 4 Mg/2 Ml Vial) 4 mg IV Q8H PRN PRN PRN Reason: NAUSEA/VOMITING Last Admin: 04/26/20 15:03 Dose: 4 mg Documented by: Phenobarbital (Phenobarbital 20 Mg/5 Ml Udc) 60 mg GT BID [facility] Last Admin: 04/26/20 10:16 Dose: 60 mg Documented by: Simethicone (Simethicone 40mg/0.6ml Bottle) 40 mg GT 4X/DAY [facility] Last Admin: 04/26/20 15:05 Dose: 40 mg Documented by: Sodium Chloride (0.9% Saline Lock 10 Ml Syringe) 10 - 40 ml IV UD PRN PRN Reason: R Port Saline Flush Last Admin: 04/26/20 16:12 Dose: 10 ml Documented by: Sodium Chloride (0.9 % Nacl (Sterile) Posiflush 10 Ml) 10 - 40 ml IV UD PRN PRN Reason: Port access or dressing change Sucralfate (Sucralfate 1 Gm Tablet) 1 gm GT 1HR_ACHS [facility] Last Admin: 04/26/20 15:04 Dose: 1 gm Documented by: Call your doctor if you observe: Fever of 101 or Higher, Shortness of breath, Dizziness, Swelling in the ankles, Prolonged hiccoughing, Increased palpitations (irregular heartbeat), Uncontrolled pain Home Medications: Medications to take at Discharge Simethicone 40MG/0.6ML [Mylicon] 40 mg GT 4X/DAY 11/09/13 Phenobarbital 60 mg GT BID 02/19/17 Cetirizine HCl [Zyrtec] 10 ml GT DAILY 02/04/18 Lactobacillus Acidophilus [Acidophilus] 1 cap GT DAILY 02/04/18 metoclopramide HCl 5 mg/5 mL oral solution 10 mg GT TID ml 09/16/18 Lorazepam [Ativan] 1 mg GT Q8 PRN 10/08/18 Cough Assist 1 dose .ROUTE .MEDSUPPLY 12/25/18 Ferrous Sulfate 5 ml GT DAILY 12/25/18 oxygen concentrator 1 dose .ROUTE .MEDSUPPLY 12/25/18 Baclofen [Ozobax] 20 mg GT Q6H 05/09/19 Lactose-Reduced Food/Fiber [[place]ev[place] 1.2 [place] Liquid] 50 ml GT DAILY 05/09/19 Ondansetron HCl [Zofran] 5 ml PO DAILY PRN 05/09/19 Doxazosin Mesylate [Cardura] 2 mg GT DAILY #30 tab 07/11/19 gabapentin 250 mg/5 mL (5 mL) oral solution 150 mg PO 1200,1800 ml 08/03/19 Ascorbic Acid [Vitamin C] 500 mg GT DAILY 08/04/19 Gabapentin 100 mg GT 0000,0600 09/26/19 epinephrine 0.3 mg/0.3 mL injection, auto-injector 0.3 mg IM ONCE 10/24/19 Magnesium Hydroxide [Milk Of Magnesia] 30 ml GT DAILY PRN PRN 04/25/20 Plecanatide [Trulance] 3 mg GT DAILY 04/25/20 Fluconazole [Diflucan] 200 mg GT DAILY 14 Days #300 ml 04/26/20 Pantoprazole Sodium [Protonix] 40 mg GT BID #60 tab 04/26/20 Sucralfate [Carafate] 1 gm GT 4X/DAY #90 tab 04/26/20 Following Prescriptions Were Given to Patient: Sucralfate [Carafate] 1 gm GT 4X/DAY #90 tab Transmission Status: Received by [facility] Fluconazole [Diflucan] 200 mg GT DAILY 14 Days #300 ml Transmission Status: Received by [facility] Pantoprazole Sodium [Protonix] 40 mg GT BID #60 tab Transmission Status: Received by [facility] Primary Care Physician: Timmy Conn MD [Primary Care Provider] - Please follow up with your Primary Care Physician in: 1-2 weeks. Disposition: Home Minutes spent on discharge:: 28 Patient Condition:: Stable Medical Necessity - Tobacco Use Smoking Status: Never smoker Meaningful Use Info Meaningful Use Diagnoses (Choose all that apply): None applicable Inpatient E&M: 63953 Disch Hosp
== END 2020-04-26 16:50 | disposition home health service (06) | DRG 377 ==
LOC: ED 10:53 → ICU 11:09
PROVIDERS: Surgery; Admitting Provider Hospitalist; Emergency Provider Emergency Medicine; PCP Family Medicine; Visit Provider Hospitalist
PROC: 0DJ08ZZ Inspection of Upper Intestinal Tract, Via Natural or Artificial Opening Endoscopic (ICD-10-PCS; CPT 43235; principal; 2020-04-26 13:45)
DX: K92.2 Gastrointestinal hemorrhage, unspecified (principal); G80.0 Spastic quadriplegic cerebral palsy; J96.21 Acute and chronic respiratory failure with hypoxia; J96.22 Acute and chronic respiratory failure with hypercapnia; B37.81 Candidal esophagitis; F72 Severe intellectual disabilities; Z99.11 Dependence on respirator [ventilator] status; K25.9 Gastric ulcer, unspecified as acute or chronic, without hemorrhage or perforation; G40.909 Epilepsy, unspecified, not intractable, without status epilepticus; D50.9 Iron deficiency anemia, unspecified; D63.8 Anemia in other chronic diseases classified elsewhere; E66.9 Obesity, unspecified; Z68.30 Body mass index [BMI] 30.0-30.9, adult; Z79.899 Other long term (current) drug therapy; Z74.01 Bed confinement status; Z93.1 Gastrostomy status; Z93.3 Colostomy status; Z93.0 Tracheostomy status
CPT/HCPCS: 71045; 74019; 80048; 80053; 81001; 83605; 85014; 85018; 85025; 85610; 85730; 87040; 87086; 88305; 88312; 88313; 93005; 97161; 97166; 97802; 99285; J7030; J7050; J7120; A4216; J0295; J2405; J3490

== ENCOUNTER → 2020-05-22 | Outpatient (CLI) | payer BC, SELFPAY ==
[2020-04-25 15:09] VITALS: BMI 30.7
[2020-05-22 11:10] LABS: Absolute Neutrophil Count 2.8 X10^3/uL (2.0-7.7); Basophil# 0.02 X10^3/uL; Basophil% 0.3 % (0-1); Eosinophil# 0.27 X10^3/uL; Eosinophils% 4.4 % (0-5); Hematocrit 34.5 % (40-54); Hemoglobin 11.6 g/dL (13.0-16.5); Lymphocyte % 41.1 % (19-41); Mean Corp Hgb Conc 33.6 g/dL (32-36); Mean Corpuscular Hgb 29.8 pg (27.0-32.0); Mean Corpuscular Volume 88.7 fL (80-94); Mean Platelet Vol. 10.5 fl (6.2-12.0); Monocyte# 0.51 X10^3/uL; Monocyte% 8.4 % (0-10); NRBC Flagged by Analyzer 0 % (0-5); Neutrophil # 2.77 X10^3/uL (2.7-7.7); Neutrophil % 45.5 % (47-70); Platelet Count 162 K/mm3 (150-450); RBC Distribution Width CV 13.2 % (11.6-14.6); RBC Distribution Width SD 42.8 fl (35.1-43.9); Red Blood Count 3.89 M/mm3 (4.6-6.2); White Blood Count 6.1 K/mm3 (4.4-11.0)
[2020-05-22 11:53] LABS: Anion Gap 7 (5-15); BUN 11 mg/dL (7-18); BUN/Creat Ratio 33.6 RATIO (10-20); Calcium,Total 8.8 mg/dL (8.5-10.1); Chloride 103 mmol/L (98-107); Creatinine, Serum 0.33 mg/dL (0.70-1.30); EST Glomerular Filtration Rate 322 mL/min (>60); Est Glom Filt Rate - Afr Amer 390 mL/min (>60); Glucose 100 mg/dL (74-106); Potassium 3.5 mmol/L (3.5-5.1); Sodium Level 138 mmol/L (136-145)
== END | disposition home or self-care (01) ==
LOC: LABSPEC 11:03
PROVIDERS: PCP Family Medicine; Visit Provider Internal Medicine Cardiovascular Disease
DX: R00.2 Palpitations (principal); D69.6 Thrombocytopenia, unspecified; I26.99 Other pulmonary embolism without acute cor pulmonale; I34.1 Nonrheumatic mitral (valve) prolapse; D50.9 Iron deficiency anemia, unspecified; J96.10 Chronic respiratory failure, unspecified whether with hypoxia or hypercapnia; G80.9 Cerebral palsy, unspecified; R60.9 Edema, unspecified
CPT/HCPCS: 80048; 85025

== ENCOUNTER 2020-06-11 09:00 | Outpatient (RCR) | payer MEDICARE, BC, SELFPAY ==
[2020-04-25 15:09] VITALS: BMI 30.7
[2020-06-11 10:18] LABS: Anion Gap 5 (5-15); BUN 16 mg/dL (7-18); BUN/Creat Ratio 53.2 RATIO (10-20); Calcium,Total 8.4 mg/dL (8.5-10.1); Chloride 104 mmol/L (98-107); EST Glomerular Filtration Rate 355 mL/min (>60); Est Glom Filt Rate - Afr Amer 429 mL/min (>60); Glucose 80 mg/dL (74-106); Potassium 3.6 mmol/L (3.5-5.1); Sodium Level 138 mmol/L (136-145)
[2020-06-11 10:21] LABS: Absolute Neutrophil Count 1.9 X10^3/uL (2.0-7.7); Basophil# 0.02 X10^3/uL; Basophil% 0.4 % (0-1); Eosinophil# 0.29 X10^3/uL; Eosinophils% 5.8 % (0-5); Hemoglobin 11.3 g/dL (13.0-16.5); Lymphocyte % 47.6 % (19-41); Mean Corp Hgb Conc 32.3 g/dL (32-36); Mean Corpuscular Hgb 28.8 pg (27.0-32.0); Mean Corpuscular Volume 89.1 fL (80-94); Mean Platelet Vol. 10.9 fl (6.2-12.0); Monocyte# 0.39 X10^3/uL; Monocyte% 7.7 % (0-10); NRBC Flagged by Analyzer 0 % (0-5); Neutrophil # 1.93 X10^3/uL (2.7-7.7); Neutrophil % 38.3 % (47-70); Platelet Count 176 K/mm3 (150-450); RBC Distribution Width CV 12.6 % (11.6-14.6); RBC Distribution Width SD 41.5 fl (35.1-43.9); Red Blood Count 3.93 M/mm3 (4.6-6.2)
[2020-06-11 10:23] LABS: Ferritin 79 ng/mL (26-388); Iron 47 ug/dL (65-175); Iron Binding Capacity,Total 226 ug/dL (250-450)
== END 2020-06-21 23:59 ==
LOC: LABSPEC 09:00
PROVIDERS: PCP Family Medicine; Referring Provider Internal Medicine Cardiovascular Disease; Visit Provider Internal Medicine Cardiovascular Disease
DX: R00.0 Tachycardia, unspecified (principal); R60.9 Edema, unspecified; I26.99 Other pulmonary embolism without acute cor pulmonale; I34.1 Nonrheumatic mitral (valve) prolapse; D50.9 Iron deficiency anemia, unspecified; J96.10 Chronic respiratory failure, unspecified whether with hypoxia or hypercapnia; D69.6 Thrombocytopenia, unspecified; G80.9 Cerebral palsy, unspecified
CPT/HCPCS: 80048; 80184; 82728; 83540; 83550; 85025

== ENCOUNTER 2020-07-09 08:55 | Outpatient (RCR) | payer MEDICARE, BC, SELFPAY ==
[2020-04-25 15:09] VITALS: BMI 30.7
[2020-07-09 09:07] LABS: Absolute Lymphocyte Count 2.47 X10^3/uL (0.83-4.51); Absolute Neutrophil Count 2.2 X10^3/uL (2.0-7.7); Basophil# 0.01 X10^3/uL; Basophil% 0.2 % (0-1); Eosinophil# 0.28 X10^3/uL; Eosinophils% 5.1 % (0-5); Hematocrit 35.6 % (40-54); Hemoglobin 11.4 g/dL (13.0-16.5); Lymphocyte # 2.47 X10^3/ul (0.83-4.51); Mean Corpuscular Hgb 28.4 pg (27.0-32.0); Mean Corpuscular Volume 88.8 fL (80-94); Mean Platelet Vol. 10.7 fl (6.2-12.0); Monocyte# 0.54 X10^3/uL; Monocyte% 9.8 % (0-10); NRBC Flagged by Analyzer 0 % (0-5); Neutrophil # 2.18 X10^3/uL (2.7-7.7); Neutrophil % 39.7 % (47-70); Platelet Count 148 K/mm3 (150-450); RBC Distribution Width SD 42.4 fl (35.1-43.9); Red Blood Count 4.01 M/mm3 (4.6-6.2); White Blood Count 5.5 K/mm3 (4.4-11.0)
[2020-07-09 09:21] LABS: Anion Gap 2 (5-15); BUN 20 mg/dL (7-18); BUN/Creat Ratio 69.7 RATIO (10-20); Calcium,Total 8.3 mg/dL (8.5-10.1); Chloride 106 mmol/L (98-107); Creatinine, Serum 0.29 mg/dL (0.70-1.30); EST Glomerular Filtration Rate 375 mL/min (>60); Est Glom Filt Rate - Afr Amer 453 mL/min (>60); Glucose 82 mg/dL (74-106); Potassium 3.7 mmol/L (3.5-5.1); Sodium Level 139 mmol/L (136-145)
== END 2020-07-22 23:59 ==
LOC: LABSPEC 08:55
PROVIDERS: PCP Family Medicine; Referring Provider Internal Medicine Cardiovascular Disease; Visit Provider Internal Medicine Cardiovascular Disease
DX: R00.0 Tachycardia, unspecified (principal); R60.9 Edema, unspecified; I26.99 Other pulmonary embolism without acute cor pulmonale; I34.1 Nonrheumatic mitral (valve) prolapse; D50.9 Iron deficiency anemia, unspecified; J96.10 Chronic respiratory failure, unspecified whether with hypoxia or hypercapnia; D69.6 Thrombocytopenia, unspecified; G80.9 Cerebral palsy, unspecified
CPT/HCPCS: 80048; 85025

== ENCOUNTER 2020-08-06 10:41 | Outpatient (RCR) | payer MEDICARE, BC, MEDICAID, SELFPAY ==
[2020-04-25 15:09] VITALS: BMI 30.7
[2020-08-06 11:05] LABS: Anion Gap 8 (5-15); BUN 20 mg/dL (7-18); BUN/Creat Ratio 75.8 RATIO (10-20); Chloride 106 mmol/L (98-107); Creatinine, Serum 0.26 mg/dL (0.70-1.30); EST Glomerular Filtration Rate 412 mL/min (>60); Est Glom Filt Rate - Afr Amer 499 mL/min (>60); Glucose 76 mg/dL (74-106); Potassium 3.7 mmol/L (3.5-5.1); Sodium Level 139 mmol/L (136-145)
== END 2020-08-21 23:59 ==
LOC: LABSPEC 10:41
PROVIDERS: PCP Family Medicine; Referring Provider Internal Medicine Cardiovascular Disease; Visit Provider Internal Medicine Cardiovascular Disease
DX: R60.9 Edema, unspecified (principal); I26.99 Other pulmonary embolism without acute cor pulmonale; I34.1 Nonrheumatic mitral (valve) prolapse; D50.9 Iron deficiency anemia, unspecified; J96.10 Chronic respiratory failure, unspecified whether with hypoxia or hypercapnia; D69.6 Thrombocytopenia, unspecified; G80.9 Cerebral palsy, unspecified
CPT/HCPCS: 80048

== ENCOUNTER → 2020-09-05 | Outpatient (CLI) | payer MEDICARE, BC, MEDICAID, SELFPAY ==
[2020-04-25 15:09] VITALS: BMI 30.7
[2020-09-05 10:18] LABS: Hematocrit 34.2 % (40-54); Mean Corp Hgb Conc 32.2 g/dL (32-36); Platelet Count 152 K/mm3 (150-450); RBC Distribution Width CV 13.9 % (11.6-14.6); RBC Distribution Width SD 44.4 fl (35.1-43.9); Red Blood Count 3.93 M/mm3 (4.6-6.2); White Blood Count 5.4 K/mm3 (4.4-11.0)
[2020-09-05 10:30] LABS: Anion Gap 2 (5-15); BUN 24 mg/dL (7-18); BUN/Creat Ratio 117.1 RATIO (10-20); Calcium,Total 8.3 mg/dL (8.5-10.1); Chloride 105 mmol/L (98-107); EST Glomerular Filtration Rate 552 mL/min (>60); Est Glom Filt Rate - Afr Amer 668 mL/min (>60); Glucose 104 mg/dL (74-106); Potassium 3.6 mmol/L (3.5-5.1); Sodium Level 139 mmol/L (136-145)
== END | disposition home or self-care (01) ==
LOC: LABSPEC 08:57
PROVIDERS: PCP Family Medicine; Visit Provider Family Medicine
DX: Z45.2 Encounter for adjustment and management of vascular access device (principal)
CPT/HCPCS: 80048; 85027

== ENCOUNTER 2020-09-07 13:33 | Inpatient (IN) | payer MEDICARE, BC, MEDICAID, SELFPAY ==
[2020-04-25 15:09] VITALS: BMI 30.7
[2020-09-07] VITALS (11 sets, daily range): BP systolic 105–151; BP diastolic 65–137; PULSE 79–130; RESP 10–26; TEMP 35.7–37.2; O2SAT 95–99; BMI 31.4; BMI 30.6
--- NOTE | 2020-09-07 13:38 | RAD_ITS ---
HISTORY: SOB EXAMINATION/TECHNIQUE: XR Chest 1 View: Portable semiupright AP chest x-ray COMPARISON: 04/26/20 FINDINGS: LINES/DEVICES: Stable tracheostomy tube and right-sided port. LUNGS: Low lung volumes with persistent elevation right hemidiaphragm. No consolidation or pleural effusion. No pneumothorax. MEDIASTINUM AND CARDIOVASCULAR STRUCTURES: Cardiac silhouette not enlarged. Central airways and mediastinal contour are distorted by rotation, grossly stable. BONES AND SOFT TISSUES: No acute bony abnormalities. RAD/Chest 1 View (Portable) IMPRESSION: Hypoinflated study without radiographic evidence of acute cardiopulmonary disease. at 1446 Reported and signed by: Victor Manuel Hannah MD Electronically Signed: Victor Manuel Hannah MD at 14:44 EDT Tel , Service support ,
--- NOTE | 2020-09-07 14:43 | CPS ---
Patient came in from squad, bagged to increase oxygen requirements, tried home oxygen of 2L TC and work of breathing increased and place on home ventilator, currently saturating at 98 with a 3L bleed into home vent. According to mother it is in SIMV mode.
[2020-09-07 14:51] LABS: Absolute Neutrophil Count 3.8 X10^3/uL (2.0-7.7); Basophil# 0.01 X10^3/uL; Basophil% 0.2 % (0-1); Eosinophil# 0.26 X10^3/uL; Eosinophils% 4.4 % (0-5); Hematocrit 37.5 % (40-54); Lymphocyte % 23.9 % (19-41); Mean Corpuscular Hgb 28.2 pg (27.0-32.0); Mean Platelet Vol. 10.1 fl (6.2-12.0); Monocyte# 0.38 X10^3/uL; Monocyte% 6.5 % (0-10); NRBC Flagged by Analyzer 0 % (0-5); Neutrophil # 3.81 X10^3/uL (2.7-7.7); Neutrophil % 64.8 % (47-70); Platelet Count 129 K/mm3 (150-450); RBC Distribution Width CV 13.9 % (11.6-14.6); RBC Distribution Width SD 44.6 fl (35.1-43.9); Red Blood Count 4.26 M/mm3 (4.6-6.2); White Blood Count 5.9 K/mm3 (4.4-11.0)
[2020-09-07 15:05] LABS: Anion Gap 5 (5-15); BUN 22 mg/dL (7-18); BUN/Creat Ratio 72.8 RATIO (10-20); Calcium,Total 8.3 mg/dL (8.5-10.1); Chloride 105 mmol/L (98-107); EST Glomerular Filtration Rate 353 mL/min (>60); Est Glom Filt Rate - Afr Amer 427 mL/min (>60); Estimated Creatinine Clearance 236.11 ml/min; Glucose 93 mg/dL (74-106); Potassium 3.9 mmol/L (3.5-5.1); Sodium Level 139 mmol/L (136-145)
--- NOTE | 2020-09-07 15:40 | NURSING ---
107 ACUTE ON CHRONIC RESP FAILURE, 2/[address] [place]
--- NOTE | 2020-09-07 15:52 | EDS_ITS ---
HPI History of Present Illness Chief Complaint: Shortness of Breath Narrative Narrative: Patient presenting for evaluation due to an episode of dyspnea and potential aspiration. Patient has a underlying history of acute on chronic respiratory failure has a tracheostomy, wears a trach mask at 2 L during the day and ventilator at night. Patient has an underlying history of cerebral palsy. Mom states that the patient required suctioning this afternoon, and when she suctioned him he started to sound like he aspirated was coughing vigorously and actually became cyanotic and walker and had a pulse ox that dropped down to the 50% range. EMS was contacted, upon their arrival they started to bag at the patient and were able to get saturations back up into the 90s and the patient was brought immediately to the emergency department. [facility] Medical History Cerebral palsy Chronic respiratory failure Debility Edema History of seizure disorder Iron deficiency anemia Nonrheumatic mitral valve prolapse Obesity Pulmonary embolism on left (06/14/19) Redundant colon Thrombocytopenia Tracheostomy in place Home Medications simethicone 40 mg GT 4X/DAY 11/09/13 [History Last Taken 04/25/20 06:00] phenobarbital 60 mg GT BID 02/19/17 [History Last Taken 04/24/20 21:00] Lactobacillus acidophilus 1 cap GT DAILY 02/04/18 [History Last Taken 04/24/20 09:00] cetirizine 10 ml GT DAILY 02/04/18 [History Last Taken 04/24/20 16:00] metoclopramide HCl 5 mg/5 mL oral solution 10 mg GT TID ml 09/16/18 [History Last Taken 04/24/20 21:00] lorazepam 1 mg GT Q8 PRN 10/08/18 [History Last Taken 04/24/20 22:00] Cough Assist 1 dose .ROUTE .MEDSUPPLY 12/25/18 [History Last Taken Unknown] ferrous sulfate 5 ml GT DAILY 12/25/18 [History Last Taken 04/24/20 16:00] oxygen concentrator 1 dose .ROUTE .MEDSUPPLY 12/25/18 [History Last Taken Unknown] baclofen 20 mg GT Q6H 05/09/19 [History Last Taken 04/25/20 06:00] lactose-reduced food with fibr 50 ml GT DAILY 05/09/19 [History Last Taken Unknown] ondansetron HCl 5 ml PO DAILY PRN 05/09/19 [History Last Taken Unknown] doxazosin 2 mg GT DAILY #30 tab 07/11/19 [Rx Last Taken 04/24/20 09:00] gabapentin 250 mg/5 mL (5 mL) oral solution 150 mg PO 1200,1800 ml 08/03/19 [History Last Taken Unknown] ascorbic acid (vitamin C) 500 mg GT DAILY 08/04/19 [History Last Taken Unknown] gabapentin 100 mg GT 0000,0600 09/26/19 [History Last Taken 04/25/20 06:00] epinephrine 0.3 mg/0.3 mL injection, auto-injector 0.3 mg IM ONCE 10/24/19 [History Last Taken Unknown] magnesium hydroxide 30 ml GT DAILY PRN PRN 04/25/20 [History Last Taken 04/24/20 17:00] plecanatide 3 mg GT DAILY 04/25/20 [History Last Taken 04/24/20 09:00] pantoprazole 40 mg GT BID #60 tab 04/26/20 [Rx Last Taken Unknown] calcium carbonate 500 mg PO DAILY 07/09/20 [History Last Taken Unknown] Allergy/AdvReac Type Severity Reaction Status Date / Time cisapride monohydrate Allergy Rash Verified 07/31/20 13:36 [From Propulsid] codeine AdvReac hallucinati Verified 07/31/20 13:36 ons metronidazole [From Flagyl] AdvReac Rash Verified 07/31/20 13:36 morphine AdvReac Hallucinati Verified 07/31/20 13:36 ons dust Allergy Other Uncoded 07/31/20 13:36 Family History Mother Hypertension Hepatitis C Father Hypertension Atrial fibrillation CAD (coronary artery disease) Surgical History Colostomy in place Heel cord lengthening History of colostomy History of eye surgery History of gastrostomy tube placement History of open reduction and internal fixation (ORIF) procedure History of soft tissue release Status post insertion of intrathecal baclofen pump Social History Smoking Status: Never smoker alcohol intake: never caffeine: No ROS ROS ED Review of Systems ROS Unobtainable: other Details: Nonverbal Respiratory/Chest Respiratory/Chest: Reports cough and dyspnea EXAM Physical Exam Const Vital Signs: 09/07/20 13:34 09/07/20 13:41 09/07/20 13:42 Temperature 97.3 F L 97.3 F L Temperature Source Temporal Temporal Pulse Rate 95 102 H Respiratory Rate 21 H 20 H Respiratory Effort Normal Respiratory Depth Normal Respiratory Pattern Normal Blood Pressure 149/137 H 149/137 H Blood Pressure Mean 141 141 Pulse Ox 98 99 Oxygen Delivery Method Ambu-Bag Ambu-Bag Ambu-Bag Oxygen Flow Rate (L/min) 15 15 15 09/07/20 14:46 09/07/20 15:05 Temperature Temperature Source Pulse Rate 91 96 Respiratory Rate 13 10 L Respiratory Effort Respiratory Depth Respiratory Pattern Blood Pressure 114/86 H 111/80 Blood Pressure Mean 95 90 Pulse Ox 96 99 Oxygen Delivery Method Mechanical Ventilator Room Air Oxygen Flow Rate (L/min) 4 Positive well nourished Constitutional Narrative: Patient with chronic dysmorphia, not in acute distress upon arrival HEENT HEENT Narrative: Mucous membranes are moist atraumatic Eyes EOMs intact bilaterally Neck Neck Narrative: Tracheostomy is in place, patient is being bagged upon arrival with bilateral breath sounds that are not coarse Resp Resp Narrative: Equal bilateral breath sounds with bagging, no abnormal breath sounds noted Cardio regular rate and regular rhythm GI GI Narrative: Patient has both a feeding tube and an ostomy, both are clean dry and intact Extremity Extremity Narrative: Atraumatic Neuro Neuro Narrative: Neurologic exam is at the patient's baseline per parents Skin Rashes: no rashes MDM MDM MDM Narrative Medical decision making narrative: Patient presented secondary to an aspiration episode. Patient was able to be bagged up and had normal saturations on [id number]. Patient was trialed on trach mask because that is what he is on typically during the day when he is not sleeping and seem to have significantly increased work of breathing and required to be placed back on his ventilator. A chest x-ray by my personal review as well as radiology shows a chronically elevated right hemidiaphragm but no evidence of infiltrate laboratory work-up was unremarkable due to the patient's significant aspiration event and his increased respiratory needs I believe that he requires admission. Patient will be admitted under the hospitalist. Lab Data Labs: Laboratory Results - last 24 hr 09/07/20 09/07/20 14:30 14:30 WBC 5.9 RBC 4.26 L Hgb 12.0 L Hct 37.5 L MCV 88.0 MCH 28.2 MCHC 32.0 RDW Std Deviation 44.6 H RDW Coeff of Emilee 13.9 Plt Count 129 L MPV 10.1 Immature Gran % (Auto) 0.200 Neut % (Auto) 64.8 Lymph % (Auto) 23.9 [place] % (Auto) 6.5 Eos % (Auto) 4.4 Baso % (Auto) 0.2 Absolute Neuts (auto) 3.8 Absolute Lymphs (auto) 1.40 Nucleated RBC % 0 Sodium 139 Potassium 3.9 Chloride 105 Carbon Dioxide 29.0 Anion Gap 5 BUN 22 H Creatinine 0.30 L Estim Creat Clear Calc 236.11 Est GFR (MDRD) Af Amer 427 Est GFR (MDRD) Non-Af 353 BUN/Creatinine Ratio 72.8 H Glucose 93 Calcium 8.3 L Radiography Diagnostic Testing: Radiology Impression Chest X-Ray 09/07/20 13:38 IMPRESSION: Hypoinflated study without radiographic evidence of acute cardiopulmonary disease. at 1446 Reported and signed by: Victor Manuel Hannah MD Electronically Signed: Victor Manuel Hannah MD at 14:44 EDT Tel , Service support , Discharge Plan Dx/Rx/DC Orders Clinical Impression: Aspiration into airway, Cerebral palsy, Chronic respiratory failure Disposition Disposition: Acute Care Hospital [facility] Discharge Date/Time: 09/07/20 16:00
--- NOTE | 2020-09-07 15:56 | HP.PCM.HOS_ITS ---
HPI - General General Date of Admission: 09/07/20 HPI Narrative KRISS MICHAEL, is a 40 M who presented to the emergency department [facility] on 09/07/2020 with acute hypoxia. prostate is a chronically ventilated patient secondary to cerebral palsy. Per discussion with his parents, who are at the bedside, he is typically on T-piece during the day and a ventilator at night. His home ventilator is a trilogy. His mother reports that he was having significant secretions and she went to suction him and his oxygen saturations dropped into the 80s. She suctioned him with further decompensation and hypoxia with a kimberly oxygen saturation in the mid 50s. She states he was cyanotic. There are daytime nurse bag to the patient with sats recovering into the 90s and he was then placed back on the ventilator in the emergency department where his sats have been stable ever since. The suspicion is that there was an aspiration versus a mucous plugging event that caused his acute hypoxia. His parents report that he had a recent issue with a cough on his trach and his trach was exchanged last week. He is currently getting adequate tidal volumes on his home trilogy unit. His vital signs are currently stable and he is satting 95 to 99% on his mechanical ventilator. His CBC is unremarkable other than a chronic anemia which appears to be at baseline and a mild thrombocytopenia which appears to be intermittent at baseline. His current platelet count is 129,000. He has no left shift on his differential. His BMP is unremarkable. A chest x-ray was performed and shows a hypoventilatory film but no acute processes. He will be admitted to PCU as stepdown status. All history is given by the parents as the patient is nonverbal. FORMERLY [facility], [facility] Medical History Cerebral palsy Chronic respiratory failure Debility Edema History of seizure disorder Iron deficiency anemia Nonrheumatic mitral valve prolapse Obesity Pulmonary embolism on left (06/14/19) Redundant colon Thrombocytopenia Tracheostomy in place Home Medications simethicone 40 mg GT 4X/DAY 11/09/13 [History Last Taken 04/25/20 06:00] phenobarbital 60 mg GT BID 02/19/17 [History Last Taken 04/24/20 21:00] Lactobacillus acidophilus 1 cap GT DAILY 02/04/18 [History Last Taken 04/24/20 09:00] cetirizine 10 ml GT DAILY 02/04/18 [History Last Taken 04/24/20 16:00] metoclopramide HCl 5 mg/5 mL oral solution 10 mg GT TID ml 09/16/18 [History Last Taken 04/24/20 21:00] lorazepam 1 mg GT Q8 PRN 10/08/18 [History Last Taken 04/24/20 22:00] Cough Assist 1 dose .ROUTE .MEDSUPPLY 12/25/18 [History Last Taken Unknown] ferrous sulfate 5 ml GT DAILY 12/25/18 [History Last Taken 04/24/20 16:00] oxygen concentrator 1 dose .ROUTE .MEDSUPPLY 12/25/18 [History Last Taken Unknown] baclofen 20 mg GT Q6H 05/09/19 [History Last Taken 04/25/20 06:00] lactose-reduced food with fibr 50 ml GT DAILY 05/09/19 [History Last Taken Unknown] ondansetron HCl 5 ml PO DAILY PRN 05/09/19 [History Last Taken Unknown] doxazosin 2 mg GT DAILY #30 tab 07/11/19 [Rx Last Taken 04/24/20 09:00] gabapentin 250 mg/5 mL (5 mL) oral solution 150 mg PO 1200,1800 ml 08/03/19 [History Last Taken Unknown] ascorbic acid (vitamin C) 500 mg GT DAILY 08/04/19 [History Last Taken Unknown] gabapentin 100 mg GT 0000,0600 09/26/19 [History Last Taken 04/25/20 06:00] epinephrine 0.3 mg/0.3 mL injection, auto-injector 0.3 mg IM ONCE 10/24/19 [History Last Taken Unknown] magnesium hydroxide 30 ml GT DAILY PRN PRN 04/25/20 [History Last Taken 04/24/20 17:00] plecanatide 3 mg GT DAILY 04/25/20 [History Last Taken 04/24/20 09:00] pantoprazole 40 mg GT BID #60 tab 04/26/20 [Rx Last Taken Unknown] calcium carbonate 500 mg PO DAILY 07/09/20 [History Last Taken Unknown] Allergy/AdvReac Type Severity Reaction Status Date / Time cisapride monohydrate Allergy Rash Verified 07/31/20 13:36 [From Propulsid] codeine AdvReac hallucinati Verified 07/31/20 13:36 ons metronidazole [From Flagyl] AdvReac Rash Verified 07/31/20 13:36 morphine AdvReac Hallucinati Verified 07/31/20 13:36 ons dust Allergy Other Uncoded 07/31/20 13:36 Family History Mother Hypertension Hepatitis C Father Hypertension Atrial fibrillation CAD (coronary artery disease) Surgical History Colostomy in place Heel cord lengthening History of colostomy History of eye surgery History of gastrostomy tube placement History of open reduction and internal fixation (ORIF) procedure History of soft tissue release Status post insertion of intrathecal baclofen pump Social History Smoking Status: Never smoker alcohol intake: never caffeine: No ROS Review of Systems ROS Unobtainable: due to mental status and other Details: Patient on mechanical ventilation via trach Vital Signs Vital Signs Vital Signs: 09/07/20 13:34 09/07/20 13:41 09/07/20 13:42 Temperature 97.3 F L 97.3 F L Temperature Source Temporal Temporal Pulse Rate 95 102 H Respiratory Rate 21 H 20 H Respiratory Effort Normal Respiratory Depth Normal Respiratory Pattern Normal Blood Pressure 149/137 H 149/137 H Blood Pressure Mean 141 141 Pulse Ox 98 99 Oxygen Delivery Method Ambu-Bag Ambu-Bag Ambu-Bag Oxygen Flow Rate (L/min) 15 15 15 09/07/20 14:46 09/07/20 15:05 Temperature Temperature Source Pulse Rate 91 96 Respiratory Rate 13 10 L Respiratory Effort Respiratory Depth Respiratory Pattern Blood Pressure 114/86 H 111/80 Blood Pressure Mean 95 90 Pulse Ox 96 99 Oxygen Delivery Method Mechanical Ventilator Room Air Oxygen Flow Rate (L/min) 4 Weight Weight: 72.9 kg Body Mass Index (BMI) 31.4 Physical Exam Const alert and no apparent distress Constitutional Narrative: Obese white male with significant spastic quadriplegic cerebral palsy, parents at bedside, nontoxic, no acute distress HEENT normocephalic and head/scalp atraumatic HEENT Narrative: Large tongue with moist mucous membranes Eyes PERRL, EOMs intact bilaterally and conjunctivae normal Neck supple Neck Narrative: Trachea midline, Shiley [address] Resp normal respiratory effort, no retractions and no use of accessory muscles Resp Narrative: Diminished but clear Auscultation: Negative for crackles, rales, rhonchi or wheezes Cardio regular rate, regular rhythm, S1 normal heart sound, S2 normal heart sound, no murmurs, no rub, no gallops, no clicks and no JVD GI normal to inspection, nondistended, normoactive bowel sounds, soft to palpation, non-tender and non-distended; Negative for hepatosplenomegaly Extremity no clubbing, cyanosis or edema Extremity Narrative: Significant spasticity in all 4 extremities with contractures Peripheral Pulses: Yes pulses 2+ throughout Skin no wounds, skin turgor normal, no jaundice, no petechiae and no mottling Skin Narrative: Skin irritation and erythematous rash surrounding diverting ostomy, skin is pale Neuro Neuro Narrative: 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 Sensorium / Orientation: awake and alert Results Lab / Micro Data Result Diagrams: 09/07/20 14:30 09/07/20 14:30 Labs: Laboratory Results - last 24 hr 09/07/20 14:30: WBC 5.9, RBC 4.26 L, Hgb 12.0 L, Hct 37.5 L, MCV 88.0, MCH 28.2, MCHC 32.0, RDW Std Deviation 44.6 H, RDW Coeff of Emilee 13.9, Plt Count 129 L, MPV 10.1, Immature Gran % (Auto) 0.200, Neut % (Auto) 64.8, Lymph % (Auto) 23.9, Butler % (Auto) 6.5, Eos % (Auto) 4.4, Baso % (Auto) 0.2, Absolute Neuts (auto) 3.8, Absolute Lymphs (auto) 1.40, Nucleated RBC % 0 09/07/20 14:30: Sodium 139, Potassium 3.9, Chloride 105, Carbon Dioxide 29.0, Anion Gap 5, BUN 22 H, Creatinine 0.30 L, Estim Creat Clear Calc 236.11, Est GFR (MDRD) Af Amer 427, Est GFR (MDRD) Non-Af 353, BUN/Creatinine Ratio 72.8 H, Glucose 93, Calcium 8.3 L Radiology Impression Chest X-Ray 09/07/20 13:38 IMPRESSION: Hypoinflated study without radiographic evidence of acute cardiopulmonary disease. at 1446 Reported and signed by: Victor Manuel Hannah MD Electronically Signed: Victor Manuel Hannah MD at 14:44 EDT Tel , Service support , Assessment & Plan Assessment/Plan (1) Acute and chronic respiratory failure with hypoxia: (2) Aspiration into airway: (3) Cerebral palsy: QUALIFIERS: Cerebral palsy type: spastic quadriplegic Qualified Code(s): G80.0 - Spastic quadriplegic cerebral palsy PLAN: Acute on chronic hypoxic respiratory failure secondary to aspiration versus mucous plug -Chronic trach and at baseline patient is T-piece during the day and trilogy vent dependent at night -Recent trach exchange -Sputum culture -Start Unasyn -Vest therapy -Continue CoughAssist -As needed nebulizers via albuterol -Mucolytic's -He follows with Dr. Monsalve at baseline -Consult pulmonology Skin breakdown at diverting ostomy site -Consult wound care Recent upper GI bleed secondary to gastric ulcers/esophagitis -Continue twice daily PPI History of candidal esophagitis -completed Diflucan at the end of April 2020 Chronic anemia -Hemoglobin stable -Repeat CBC in a.m. Chronic thrombocytopenia -Platelet count 129 on admission -Relatively stable -Repeat CBC in a.m. Cerebral palsy with spastic quadriplegia -Continue home medications -Continue tube feed via PEG DVT prophylaxis -Lovenox 30 mg daily -SCDs CODE STATUS -Full code Charges/Coding Visit Charges Inpatient E&M: 48713 Init Hosp L3
--- NOTE | 2020-09-07 17:11 | EKG12_ITS ---
Test Reason : DYSRHYTHMIA Blood Pressure : / mmHG Vent. Rate : 106 BPM Atrial Rate : 106 BPM P-R Int : 134 ms QRS Dur : 082 ms QT Int : 342 ms P-R-T Axes : 042 -29 027 degrees QTc Int : 454 ms Sinus tachycardia with Premature ventricular complexes or Fusion complexes Low voltage QRS ST & T wave abnormality, consider anterior ischemia Abnormal ECG Confirmed by PATEL VARGAS, RACHELLE ([id number]), subeditor JOSEMANUEL TORRES ([id number]) on 09/09/2020 11:54:27 AM Referred By: FLAQUITO Confirmed By:RACHELLE SWEENEY MD
[2020-09-07] MEDS: Lactated Ringers 1,000 ML 50 ML IV (17:46)
[2020-09-07] MEDS: Acetaminophen 325 MG Tablet 650 MG PO (20:04)
[2020-09-07] MEDS: Baclofen 10 MG Tablet 20 MG GT ×2 (20:05→23:45)
[2020-09-07] MEDS: Magnesium Hydroxide 30 ML UDC GT (20:05)
[2020-09-07] MEDS: Metoclopramide 10 MG/10 ML UDC GT (20:05)
[2020-09-07] MEDS: Lansoprazole 15 MG Capsule.DR 30 MG NG (21:56)
[2020-09-07] MEDS: LORazepam 1 MG Tablet GT (21:56)
[2020-09-07] MEDS: Phenobarbital 20 MG/5 ML UDC 60 MG GT (21:57)
[2020-09-07] MEDS: Simethicone 40MG/0.6ML Bottle 40 MG GT (21:57)
[2020-09-07] MEDS: Jevity 1.5 1,000 ML 40 ML GT (23:44)
[2020-09-07] MEDS: GABAPENTIN 250 MG/5 ML SOLUTION 100 MG GT (23:44)
[2020-09-08] VITALS (11 sets, daily range): BP systolic 112–122; BP diastolic 46–84; PULSE 94–121; RESP 16–20; TEMP 36.6–37.6; O2SAT 94–96; BMI 30.7
[2020-09-08 00:10] LABS: Bedside Glucose 101 mg/dL (70-110)
[2020-09-08] MEDS: Baclofen 10 MG Tablet 20 MG GT ×3 (05:47→17:42)
[2020-09-08] MEDS: Metoclopramide 10 MG/10 ML UDC GT ×2 (05:47→14:23)
[2020-09-08] MEDS: GABAPENTIN 250 MG/5 ML SOLUTION 100 MG GT (05:47)
[2020-09-08 05:58] LABS: Hematocrit 37.4 % (40-54); Hemoglobin 12.3 g/dL (13.0-16.5); Mean Corp Hgb Conc 32.9 g/dL (32-36); Mean Corpuscular Hgb 28.2 pg (27.0-32.0); Mean Corpuscular Volume 85.8 fL (80-94); Platelet Count 184 K/mm3 (150-450); RBC Distribution Width CV 13.9 % (11.6-14.6); Red Blood Count 4.36 M/mm3 (4.6-6.2); White Blood Count 8.9 K/mm3 (4.4-11.0)
[2020-09-08 06:46] LABS: Bedside Glucose 112 mg/dL (70-110)
[2020-09-08 06:50] LABS: Anion Gap 7 (5-15); BUN 21 mg/dL (7-18); BUN/Creat Ratio 57.1 RATIO (10-20); Calcium,Total 8.6 mg/dL (8.5-10.1); Chloride 103 mmol/L (98-107); Creatinine, Serum 0.37 mg/dL (0.70-1.30); EST Glomerular Filtration Rate 281 mL/min (>60); Est Glom Filt Rate - Afr Amer 340 mL/min (>60); Estimated Creatinine Clearance 191.44 ml/min; Glucose 102 mg/dL (74-106); Magnesium 2.2 mg/dL (1.6-2.6); Phosphorus 3.6 mg/dL (2.5-4.9); Sodium Level 135 mmol/L (136-145)
--- NOTE | 2020-09-08 07:15 | CPS ---
Cough assist done w/pt's home machine, sx'd large amount of thick white secretions.
--- NOTE | 2020-09-08 08:14 | CON.PCM.CC_ITS ---
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 Continue empiric antibiotics 2. Likely avoid culture given patient's already on antibiotics 3. Monitor respiratory status. Continue baseline nocturnal ventilation. 4. Attempt T-piece during the day today 5. Continue home ventilator at baseline settings IMPRESSIONS: 1. Acute on chronic hypoxic respiratory failure Clinical suspicion for mucous plugging from oral secretions with exacerbation through suctioning. Patient is back on his baseline settings at this time. Continue with mechanical ventilation at night. Okay to attempt T- piece during the day today. Continue empiric antibiotics. Would not recommend steroids at this time. 2. Sinus tachycardia Unclear etiology. Patient does have increased generalized erythema. Unclear if patient may have an element of withdrawal given interruption of baclofen. Continue to monitor for other signs or symptoms of sepsis. Patient does not have leukocytosis at this time. Would continue with baseline medications at this time and monitor clinically. 3. Cerebral palsy/spastic quadriplegia/seizure disorder/GERD/history of PE Complicates care, management, recovery and prognosis. Okay to continue with baseline medications from my perspective. Patient has a history of both PE and upper GI bleed, so anticoagulation recommendations are difficult. Some of patient's symptoms may be secondary to withdrawal symptoms. HPI Consult Data Date of Consult: 09/08/20 HPI Narrative HPI Narrative: KRISS MICHAEL is a 40 M, with past medical history listed below, who presents to [facility] on 09[facility]07[facility]2020 following an acute episode of hypoxia. Patient was of his usual health and was noted to have increased oral secretions. Then patient started to desaturate leading to a need for suctioning. After suctioning, patient had desaturated into the 50s and became cyanotic, so was brought to the ER for evaluation. Patient did receive bag mask ventilation and saturations did improve. Patient has CP, so most of the history was per the electronic medical record and mother at the bedside. In the ER, patient was afebrile, but hypertensive at 149/137. Patient was receiving bag mask ventilation initially, but then was placed back on his home mechanical ventilator at 4 L/min. Laboratory work-up was relatively unremarkable with a normal CBC and BMP. Chest x-ray showed continued elevation of the right hemidiaphragm. Given patient's acute event, he was admitted to the hospital for further evaluation. Since being admitted, patient has done well. Patient is back on his baseline respiratory medications. Patient has had slightly elevated temperatures, but h as not qualified as a fever. Patient has had some flushing and tachycardia. Patient's mother reports he gets like this when his baclofen dosing gets messed up. She does report some concerns with the tachycardia, but otherwise feels that his respiratory status is at its baseline. Cultures were not done on admission. Mother reports no fevers at home. Mother does report that tachycardia typically means something is wrong. No significant bowel output has been reported. No aspiration events outside of the acute event with oral secretions has been reported. Patient has not had any recent trauma. Review of systems otherwise negative from a constitutional, HEENT, respiratory, cardiovascular, GI, genitourinary, musculoskeletal, skin, neurologic, psychiatric and hematologic system unless stated above. [facility] Medical History Cerebral palsy Chronic respiratory failure Debility Edema History of seizure disorder Iron deficiency anemia Nonrheumatic mitral valve prolapse Obesity Pulmonary embolism on left (06/14/19) Redundant colon Thrombocytopenia Tracheostomy in place Home Medications simethicone 40 mg GT 4X/DAY 11/09/13 [History Last Taken 04/25/20 06:00] phenobarbital 60 mg GT BID 02/19/17 [History Last Taken 04/24/20 21:00] Lactobacillus acidophilus 1 cap GT DAILY 02/04/18 [History Last Taken 04/24/20 09:00] cetirizine 10 ml GT DAILY 02/04/18 [History Last Taken 04/24/20 16:00] metoclopramide HCl 5 mg/5 mL oral solution 10 mg GT TID ml 09/16/18 [History Last Taken 04/24/20 21:00] lorazepam 2 mg GT Q8 PRN 10/08/18 [History Last Taken 04/24/20 22:00] Cough Assist 1 dose .ROUTE .MEDSUPPLY 12/25/18 [History Last Taken Unknown] ferrous sulfate 75 mg GT DAILY 12/25/18 [History Last Taken 04/24/20 16:00] oxygen concentrator 1 dose .ROUTE .MEDSUPPLY 12/25/18 [History Last Taken Unknown] baclofen 20 mg GT Q6H 05/09/19 [History Last Taken 04/25/20 06:00] lactose-reduced food with fibr 50 ml GT DAILY 05/09/19 [History Last Taken Unknown] ondansetron HCl 5 ml PO DAILY PRN 05/09/19 [History Last Taken Unknown] doxazosin 2 mg GT DAILY #30 tab 07/11/19 [Rx Last Taken 04/24/20 09:00] gabapentin 250 mg/5 mL (5 mL) oral solution 150 mg PO 1200,1800 ml 08/03/19 [History Last Taken Unknown] ascorbic acid (vitamin C) 500 mg GT DAILY 08/04/19 [History Last Taken Unknown] gabapentin 200 mg GT 4X/DAY 09/26/19 [History Last Taken 04/25/20 06:00] epinephrine 0.3 mg/0.3 mL injection, auto-injector 0.3 mg IM ONCE 10/24/19 [History Last Taken Unknown] magnesium hydroxide 30 ml GT DAILY PRN PRN 04/25/20 [History Last Taken 04/24/20 17:00] plecanatide 3 mg GT DAILY 04/25/20 [History Last Taken 04/24/20 09:00] pantoprazole 40 mg GT BID #60 tab 04/26/20 [Rx Last Taken Unknown] calcium carbonate 500 mg PO DAILY 07/09/20 [History Last Taken Unknown] Allergy/AdvReac Type Severity Reaction Status Date / Time cisapride monohydrate Allergy Rash Verified 07/31/20 13:36 [From Propulsid] codeine AdvReac hallucinati Verified 07/31/20 13:36 ons metronidazole [From Flagyl] AdvReac Rash Verified 07/31/20 13:36 morphine AdvReac Hallucinati Verified 07/31/20 13:36 ons dust Allergy Other Uncoded 07/31/20 13:36 Family History Mother Hypertension Hepatitis C Father Hypertension Atrial fibrillation CAD (coronary artery disease) Surgical History Colostomy in place Heel cord lengthening History of colostomy History of eye surgery History of gastrostomy tube placement History of open reduction and internal fixation (ORIF) procedure History of soft tissue release Status post insertion of intrathecal baclofen pump Social History Smoking Status: Never smoker alcohol intake: never caffeine: No ROS ROS Narrative See HPI. Per mother and medical record given patient baseline CP Physical Exam Const alert Constitutional Narrative: Appears baseline from a mentation standpoint HEENT HEENT Narrative: Microcephalic with torticollis to the right. Macroglossia noted. Neck General: trachea midline and tracheostomy present; Negative for anterior neck swelling or lymphadenopathy Lymph Lymphatic: no lymphadenopathy noted Chest palpation of chest normal Chest: symmetrical chest wall rise Resp Effort and Inspection: mechanically ventilated; Negative for labored or uses accessory muscles Cardio regular rhythm, S1 normal heart sound, S2 normal heart sound, no murmurs, no rub and no gallops Rate: tachycardic Extremity Extremity Narrative: Clubfeet bilaterally Peripheral Pulses: Yes pulses 2+ throughout Skin Skin Narrative: Generalized erythema without laceration, abrasion or other focal nidus General Skin Exam: erythema Neuro Neuro Narrative: Baseline mentation Psych Attitude: agitated Lab / Micro Data Result Diagrams: 09/08/20 05:40 09/08/20 05:40 Labs: Laboratory Results - last 24 hr 09/07/20 14:30: WBC 5.9, RBC 4.26 L, Hgb 12.0 L, Hct 37.5 L, MCV 88.0, MCH 28.2, MCHC 32.0, RDW Std Deviation 44.6 H, RDW Coeff of Emilee 13.9, Plt Count 129 L, MPV 10.1, Immature Gran % (Auto) 0.200, Neut % (Auto) 64.8, Lymph % (Auto) 23.9, Burnett % (Auto) 6.5, Eos % (Auto) 4.4, Baso % (Auto) 0.2, Absolute Neuts (auto) 3.8, Absolute Lymphs (auto) 1.40, Nucleated RBC % 0 09/07/20 14:30: Sodium 139, Potassium 3.9, Chloride 105, Carbon Dioxide 29.0, Anion Gap 5, BUN 22 H, Creatinine 0.30 L, Estim Creat Clear Calc 236.11, Est GFR (MDRD) Af Amer 427, Est GFR (MDRD) Non-Af 353, BUN/Creatinine Ratio 72.8 H, Glucose 93, Calcium 8.3 L 09/07/20 23:59: POC Glucose 101 09/08/20 05:40: WBC 8.9, RBC 4.36 L, Hgb 12.3 L, Hct 37.4 L, MCV 85.8, MCH 28.2, MCHC 32.9, RDW Std Deviation 43.0, RDW Coeff of Emilee 13.9, Plt Count 184, MPV 10.0 09/08/20 05:40: Sodium 135 L, Potassium 4.0, Chloride 103, Carbon Dioxide 25.0, Anion Gap 7, BUN 21 H, Creatinine 0.37 L, Estim Creat Clear Calc 191.44, Est GFR (MDRD) Af Amer 340, Est GFR (MDRD) Non-Af 281, BUN/Creatinine Ratio 57.1 H, Glucose 102, Calcium 8.6, Phosphorus 3.6, Magnesium 2.2 09/08/20 06:10: POC Glucose 112 H Radiology Impression Chest X-Ray 09/07/20 13:38 IMPRESSION: Hypoinflated study without radiographic evidence of acute cardiopulmonary disease. at 1446 Reported and signed by: Victor Manuel Hannah MD Electronically Signed: Victor Manuel Hannah MD at 14:44 EDT Tel , Service support , Charges/Coding Visit Charges Inpatient E&M: 29855 Init Hosp L2
[2020-09-08] MEDS: Simethicone 40MG/0.6ML Bottle 40 MG GT ×3 (09:49→17:42)
[2020-09-08] MEDS: Enoxaparin 30 MG/0.3 ML Syringe SC (09:49)
[2020-09-08] MEDS: Ferrous Sulfate 300 MG/5 ML UDC GT (09:49)
[2020-09-08] MEDS: PLECANATIDE 3 MG TABLET PO (09:49)
[2020-09-08] MEDS: Lansoprazole 15 MG Capsule.DR 30 MG NG (09:49)
[2020-09-08] MEDS: Phenobarbital 20 MG/5 ML UDC 60 MG GT (09:50)
[2020-09-08] MEDS: Calcium Carbonate 1250 MG/5 ML 500 MG PO (09:50)
[2020-09-08] MEDS: Loratadine 10 MG Tablet GT (09:50)
[2020-09-08] MEDS: Ascorbic Acid 500 MG Tablet GT (09:50)
[2020-09-08] MEDS: Doxazosin 1 MG Tablet 2 MG GT (09:50)
--- NOTE | 2020-09-08 10:39 | PN.HOSP_ITS ---
Subjective Subjective No issues overnight. Mother is concerned because he has been mildly tachycardic and was flushed this morning. She states his heart rates are coming down and his flushed appearance has improved. She is concerned that maybe he was slightly withdrawing because from his baclofen because he missed a dose or 2. We discussed the fact that he likely mucous plug and discuss preventative measures including hydration and monitoring the thickness of his sputum to prevent this. Objective Data Objective Data Vital Signs: Vital Signs Temp Pulse Resp BP Pulse Ox 98.3 F 100 20 H 112/84 H 96 09/08/20 09:48 09/08/20 09:48 09/08/20 09:48 09/08/20 09:48 09/08/20 09:48 Oxygen Flow Rate (L/min) 3 Oxygen Delivery Method Mechanical Ventilator Weight: 71.169 kg Body Mass Index (BMI) 30.6 Intake & Output: Intake and Output for Last 24 Hours 09/06/20 09/07/20 09/08/20 23:59 23:59 23:59 Intake Total 112 / 112 712 / 712 Balance 112 / 112 712 / 712 Lab / Micro Data Result Diagrams: 09/08/20 05:40 09/08/20 05:40 Labs: Laboratory Results - last 24 hr 09/07/20 14:30: WBC 5.9, RBC 4.26 L, Hgb 12.0 L, Hct 37.5 L, MCV 88.0, MCH 28.2, MCHC 32.0, RDW Std Deviation 44.6 H, RDW Coeff of Emilee 13.9, Plt Count 129 L, MPV 10.1, Immature Gran % (Auto) 0.200, Neut % (Auto) 64.8, Lymph % (Auto) 23.9, Garfield % (Auto) 6.5, Eos % (Auto) 4.4, Baso % (Auto) 0.2, Absolute Neuts (auto) 3.8, Absolute Lymphs (auto) 1.40, Nucleated RBC % 0 09/07/20 14:30: Sodium 139, Potassium 3.9, Chloride 105, Carbon Dioxide 29.0, Anion Gap 5, BUN 22 H, Creatinine 0.30 L, Estim Creat Clear Calc 236.11, Est GFR (MDRD) Af Amer 427, Est GFR (MDRD) Non-Af 353, BUN/Creatinine Ratio 72.8 H, Glucose 93, Calcium 8.3 L 09/07/20 23:59: POC Glucose 101 09/08/20 05:40: WBC 8.9, RBC 4.36 L, Hgb 12.3 L, Hct 37.4 L, MCV 85.8, MCH 28.2, MCHC 32.9, RDW Std Deviation 43.0, RDW Coeff of Emilee 13.9, Plt Count 184, MPV 10.0 09/08/20 05:40: Sodium 135 L, Potassium 4.0, Chloride 103, Carbon Dioxide 25.0, Anion Gap 7, BUN 21 H, Creatinine 0.37 L, Estim Creat Clear Calc 191.44, Est GFR (MDRD) Af Amer 340, Est GFR (MDRD) Non-Af 281, BUN/Creatinine Ratio 57.1 H, Glucose 102, Calcium 8.6, Phosphorus 3.6, Magnesium 2.2 09/08/20 06:10: POC Glucose 112 H Radiography Diagnostic Testing: Radiology Impression Chest X-Ray 09/07/20 13:38 IMPRESSION: Hypoinflated study without radiographic evidence of acute cardiopulmonary disease. at 1446 Reported and signed by: Victor Manuel Hannah MD Electronically Signed: Victor Manuel Hannah MD at 14:44 EDT Tel , Service support , Physical Exam Const alert and no apparent distress Constitutional Narrative: Obese white male with significant spastic quadriplegic cerebral palsy, parents at bedside, nontoxic, no acute distress, appears slightly flushed HEENT normocephalic and head/scalp atraumatic Head and Scalp: normocephalic Eyes PERRL, EOMs intact bilaterally and conjunctivae normal Neck supple Neck Narrative: Trachea midline, Shiley [address] patient is currently attached to the ventilator Resp normal respiratory effort, no retractions and no use of accessory muscles Resp Narrative: Few scattered rhonchi Auscultation: rhonchi; Negative for crackles, rales or wheezes Cardio regular rhythm, S1 normal heart sound, S2 normal heart sound, no murmurs, no rub, no gallops, no clicks and no JVD Cardio Narrative: Mild tachycardia GI normal to inspection, nondistended, normoactive bowel sounds, soft to palpation, non-tender and non-distended; Negative for hepatosplenomegaly GI Narrative: PEG in place, diverting ostomy noted with small amounts of stool in the bag Extremity no clubbing, cyanosis or edema Extremity Narrative: Significant spasticity in all 4 extremities with contractures Skin no wounds, skin turgor normal, no jaundice, no petechiae and no mottling Skin Narrative: Skin irritation and erythematous rash surrounding diverting ostomy, skin is pale Neuro Neuro Narrative: 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 Sensorium / Orientation: awake and alert Assessment & Plan Assessment/Plan (1) Acute and chronic respiratory failure with hypoxia: (2) Aspiration into airway: (3) Cerebral palsy: QUALIFIERS: Cerebral palsy type: spastic quadriplegic Qualified Code(s): G80.0 - Spastic quadriplegic cerebral palsy PLAN: Acute on chronic hypoxic respiratory failure secondary to aspiration versus mucous plug -Chronic trach and at baseline patient is T-piece during the day and trilogy vent dependent at night -Recent trach exchange -Sputum culture held by pulmonary given the fact that he has a chronic trach -Continue Unasyn would discharge on Augmentin to complete 7-day course for aspir ation -Continue Vest therapy -Continue CoughAssist -T-piece trials today -As needed nebulizers via albuterol -Mucolytic's -pulmonology following--> appreciate input Skin breakdown at diverting ostomy site -Consult wound care Recent upper GI bleed secondary to gastric ulcers/esophagitis -Continue twice daily PPI History of candidal esophagitis -completed Diflucan at the end of April 2020 Mild hyponatremia -Sodium is 135 -Free water is going at 100 cc/h via his PEG--> this was initially started at the request of the parents -Home free water is approximately 1100 cc daily -I recommended that we decrease his free water at 100 an hour but only for 12 hours during the day-family agreeable Chronic anemia -Hemoglobin stable on CBC this a.m. Chronic thrombocytopenia -Platelets have normalized at this time 184,000 Cerebral palsy with spastic quadriplegia -Continue home medications -Continue tube feed via PEG DVT prophylaxis -Lovenox 30 mg daily -SCDs CODE STATUS -Full code Charges/Coding Visit Charges Inpatient E&M: 06720 Subs Hosp L2
[2020-09-08 12:10] LABS: Bedside Glucose 100 mg/dL (70-110)
[2020-09-08] MEDS: GABAPENTIN 250 MG/5 ML SOLUTION 150 MG GT ×2 (12:11→17:42)
[2020-09-08] MEDS: Ondansetron 4 MG/2 ML Vial IV ×2 (12:23→22:48)
--- NOTE | 2020-09-08 12:46 | NT.THERAPY_ITS ---
Medical Nutrition Therapy - History Nutrition Services has been consulted to:: Manage enteral nutrition Current diet/nutrition support order:: NPO. TF support: Jevity 1.5 South @ 60ml/hr from 7AM-10PM (15 hours) and 40ml/hr from 10PM-7AM (9 hours) with 100ml water flush Q 4 hours only from 7AM-7PM provides 1890 calories, 80 gm protein and 1258 ml free water per day. - Anthropometric Measurements Height:: 5 ft Weight:: 71.2 kg Body Mass Index (BMI):: 30.7 - Relevant Labs Relevant Labs:: RBC 4.36 M/mm3 (4.6-6.2) L 09/08/20 05:40 Hgb 12.3 g/dL (13.0-16.5) L 09/08/20 05:40 Hct 37.4 % (40-54) L 09/08/20 05:40 RDW Std Deviation 44.6 fl (35.1-43.9) H 09/07/20 14:30 Plt Count 129 K/mm3 (150-450) L 09/07/20 14:30 Sodium 135 mmol/L (136-145) L 09/08/20 05:40 BUN 21 mg/dL (7-18) H 09/08/20 05:40 Creatinine 0.37 mg/dL (0.70-1.30) L 09/08/20 05:40 BUN/Creatinine Ratio 57.1 RATIO (10-20) H 09/08/20 05:40 Calcium 8.3 mg/dL (8.5-10.1) L 09/07/20 14:30 - Assessment Food and Nutrient Intake: Pt is NPO and receives all nutrition via PEG tube---home TF schedule is as follows: Jevity 1.5 South @ 60ml/hr from 7AM-10PM (15 hours) and 40ml/hr from 10PM-7AM (9 hours) with 100ml water flush Q 4 hours only from 7AM-7PM---this TF regimen provides 1890 calories, 80gm protein and 1258ml free water per day. Family and doctor would like to continue the same regimen while in the hospital. Pt appears to have good tolerance with no res iduals noted. Wt appears stable given family reported UBW~155 lbs. - Nutrition Diagnosis: Clinical Problem Swallowing Difficulty Clinical Problem - Etiology: related to neurological deficit/cerebral palsy Clinical Problem - Signs/Symptoms: as evidenced by NPO and PEG TF to meet 100% estimated nutrition needs. Status: Active Problem - Protein Calorie Malnutrition Evidence of Malnutrition Exists: No - Nutrition Intervention Nutrition Prescription: Estimated nutrition needs~1500-8331 kcal (25 kcal/Kg) and ~70-90 gm pro (1-1.2 gm pro/Kg) per day. Estimated fluid needs~5396-2519 ml/day (1ml/kcal of TF delivered). - Food / Nutrient Delivery Interventions Nutrition support ordered as / adjusted to:: 1.) Will continue home TF regimen as per family and doctor---Jevity 1.5 South @ 60ml/hr from 7AM-10PM (15 hours) and 40ml/hr from 10PM-7AM (9 hours) with 100ml water flush Q 4 hours only from 7AM- 7PM provides 1890 calories, 80 gm protein and 1258 ml free water per day. 2.) S uggest increase water flushes as able to better meet estimated fluid needs and prevent dehydration. 3.) Daily weights. 4.) Will manage and adjust TF support as needed. 5.) Pt is to remain NPO and 100% estimated nutrition needs to be met via PEG TF support. Nutrition education provided?: No - MNT Monitoring Active Nutrition Patient: Yes Nutrition Status: Requires Follow Up 3-5 Days
[2020-09-08 18:26] LABS: Bedside Glucose 103 mg/dL (70-110)
[2020-09-08] MEDS: Lactated Ringers 1,000 ML 50 ML IV (18:30)
--- NOTE | 2020-09-08 20:11 | CPS ---
RETAIL FIELD REPRESENTATIVE did cough assist with patient on home machine.
[2020-09-08] MEDS: proMETHazine 25 MG/ML Syringe 12.5 MG IM (23:47)
[2020-09-09] VITALS (11 sets, daily range): BP systolic 107–126; BP diastolic 69–91; PULSE 63–123; RESP 16–20; TEMP 36.6–37.5; O2SAT 94–99
[2020-09-09] MEDS: Phenobarbital Sodium 65 MG/ML Vial 50 MG IV ×3 (00:01→22:27)
--- NOTE | 2020-09-09 01:04 | NURSING ---
TF held around 2200 d/t pt actively vomiting. Phenergan and zofran given, with phenergan being more effective. Will continue to monitor and hold TF until pt does not have any N/V and can tolerate TF being given.
[2020-09-09 01:16] LABS: Bedside Glucose 100 mg/dL (70-110)
[2020-09-09 06:30] LABS: Bedside Glucose 90 mg/dL (70-110)
[2020-09-09] MEDS: proMETHazine 25 MG/ML Syringe 12.5 MG IM ×2 (06:40→21:12)
--- NOTE | 2020-09-09 07:30 | PN.CC_ITS ---
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 Continue empiric antibiotics 2. Obtain acute abdominal series. Possible need for surgical evaluation pending results 3. Monitor respiratory status. Continue baseline nocturnal ventilation. 4. Attempt T-piece during the day today if able to control emesis 5. Continue home ventilator at baseline settings IMPRESSIONS: 1. Acute on chronic hypoxic respiratory failure Clinical suspicion for mucous plugging from oral secretions with exacerbation through suctioning. Patient is back on his baseline settings at this time. Continue with mechanical ventilation at night. Okay to attempt T- piece during the day today if able to control emesis. Continue empiric antibiotics. Would not recommend steroids at this time. 2. Sinus tachycardia/recurrent emesis Unclear etiology. Patient does have increased generalized erythema. Unclear if patient may have an element of withdrawal given interruption of baclofen. Continue to monitor for other signs or symptoms of sepsis. Patient does not have leukocytosis at this time. Would continue with baseline medications at this time and monitor clinically. Patient may need to be transitioned to IV medications. Acute abdominal series will be ordered. Defer to primary service of surgery needs to be involved. 3. Cerebral palsy/spastic quadriplegia/seizure disorder/GERD/history of PE Complicates care, management, recovery and prognosis. Okay to continue with baseline medications from my perspective. Patient has a history of both PE and upper GI bleed, so anticoagulation recommendations are difficult. Some of patient's symptoms may be secondary to withdrawal symptoms. Subjective Subjective Patient's color is improved per mother overnight. However, patient has had recurrent emesis despite holding tube feeds and antiemetics. Patient is also had decreased output in his colostomy. Patient has remained hemodynamically stable on the ventilator overnight. There is no report of suctioning tube feeds or other material out of the tracheostomy. Objective Data Objective Data Vital Signs: Vital Signs Temp Pulse Resp BP Pulse Ox 36.6 C 63 16 122/70 H 99 09/09/20 03:00 09/09/20 03:00 09/09/20 03:00 09/09/20 03:00 09/09/20 03:00 Oxygen Flow Rate (L/min) 3 Oxygen Delivery Method Mechanical Ventilator Weight: 71.2 kg Body Mass Index (BMI) 30.7 Intake & Output: Intake and Output for Last 24 Hours 09/07/20 09/08/20 09/09/20 23:59 23:59 23:59 Intake Total 112 / 112 2591.00 / 2805.00 326 / 326 Output Total 300 / 300 1000 / 1000 Balance 112 / 112 2291.00 / 2505.00 -674 / -674 Lab / Micro Data Result Diagrams: 09/08/20 05:40 09/08/20 05:40 Labs: Laboratory Results - last 24 hr 09/08/20 12:03: POC Glucose 100 09/08/20 18:17: POC Glucose 103 09/09/20 01:11: POC Glucose 100 09/09/20 06:13: POC Glucose 90 Physical Exam Const alert Constitutional Narrative: Appears baseline from a mentation standpoint Neck General: trachea midline and tracheostomy present; Negative for anterior neck swelling or lymphadenopathy Lymph Lymphatic: no lymphadenopathy noted Chest palpation of chest normal Chest: symmetrical chest wall rise Resp Effort and Inspection: mechanically ventilated; Negative for labored or uses ac cessory muscles Cardio regular rhythm, S1 normal heart sound, S2 normal heart sound, no murmurs, no rub and no gallops Rate: tachycardic GI soft to palpation and non-tender GI Narrative: Slightly distended. No grimacing to palpation. Colostomy and G- tube is clean, dry and intact. Extremity Extremity Narrative: Clubfeet bilaterally Skin Skin Narrative: Improvement in generalized erythema without laceration, abrasion or other focal nidus General Skin Exam: erythema Neuro Neuro Narrative: Baseline mentation Psych Attitude: agitated Charges/Coding Visit Charges Inpatient E&M: 74056 Subs Hosp L3
--- NOTE | 2020-09-09 08:04 | RAD_ITS ---
STUDY: X-RAY - ACUTE ABDOMINAL SERIES REASON FOR EXAM: Male, 40 years old. Persistent emesis TECHNIQUE: Single view of the chest. Supine, and erect view(s) of the abdomen were obtained. COMPARISON: Comparison made with prior chest radiograph dated 09/07/2020. FINDINGS: A tracheostomy tube is in situ. This is unchanged. A right-sided portacatheter is seen with the tip in the right atrium. Stable elevation of the right hemidiaphragm. There is cardiomegaly. Normal mediastinum and rachelle. Normal visualized pulmonary arteries. Normal visualized aortic arch and descending thoracic aorta. A gastrostomy tube is seen. The gas pattern is unremarkable. There is evidence of fecal material in the colon. The soft tissue structures of the abdomen and pelvis are unremarkable. Marked levoscoliosis of the lumbar spine. RAD/Acute Abdomen Inc Chest IMPRESSION: Nonspecific bowel gas pattern. I suspect fecal material within the colon. Electronically Signed: Matti Greer MD at 10:42 EDT , Service support ,
[2020-09-09] MEDS: Simethicone 40MG/0.6ML Bottle 40 MG GT ×2 (09:13→14:19)
[2020-09-09] MEDS: Ascorbic Acid 500 MG Tablet GT (09:14)
[2020-09-09] MEDS: Calcium Carbonate 1250 MG/5 ML 500 MG PO (09:14)
[2020-09-09] MEDS: Lansoprazole 15 MG Capsule.DR 30 MG NG ×2 (09:14→22:27)
[2020-09-09] MEDS: Baclofen 10 MG Tablet 20 MG GT ×3 (09:15→18:02)
[2020-09-09] MEDS: Ferrous Sulfate 300 MG/5 ML UDC GT (09:15)
[2020-09-09] MEDS: Metoclopramide 10 MG/2 ML Vial 5 MG IV ×2 (09:15→17:50)
[2020-09-09] MEDS: Enoxaparin 30 MG/0.3 ML Syringe SC (09:15)
[2020-09-09] MEDS: PLECANATIDE 3 MG TABLET PO (09:16)
[2020-09-09] MEDS: Loratadine 10 MG Tablet GT (09:16)
[2020-09-09] MEDS: Doxazosin 1 MG Tablet 2 MG GT (09:16)
[2020-09-09] MEDS: GABAPENTIN 250 MG/5 ML SOLUTION 150 MG GT ×2 (09:22→18:03)
--- NOTE | 2020-09-09 10:50 | CASEMGMT ---
RN CM Face to Face with patient for initial transition planning/care coordination assessment. RN CM introduced self and role at [facility]. Patient lying in bed, mother at bedside. Mother willing to participate in assessment and is able to answer all questions appropriately. Care providers, pharmacy, and demographics verified. Mother wishes for patient to discharge home with resumption of care with [facility]. Mother states she has no further needs or concerns at this time. CM to follow for discharge planning needs that may arise. PCP: Senia Specialists: Mariann, electronic court recorder; Bello, insurance underwriter sales; Gianna, ENT; Lisa, neurologist; EVELIO Najera Preferred Pharmacy: [facility] or [facility] Insurance: Glomera CATHY Prescription Benefit: yes Living Will/HPOA: yes, mother Matteo HPOA and Legal Guardian LNOK: mother, father Living Arrangements: Patient lives with parents in a single story home with ramp to enter the home. Patient has private aide and 12 hours of nursing to assist with care. Transportation: parents WC van or ambulance DME/HHC: Patient has shower chair, hospital bed, wheel chair, estefany, ceiling track, cough assist device, elevator, feeding pump, home vent with oxygen through [facility]. HHC is for SN, OT, ST through [facility] Disposition Plan: Patient to discharge home with resumption of care, family support, and follow-up plans in place. Veronica BAL, RN, CM
--- NOTE | 2020-09-09 11:36 | PCM.PN.HOSP ---
Subjective Subjective Had some emesis yesterday and overnight, he does have air in his ostomy and abdominal x-ray today shows ileus Objective Data Objective Data Vital Signs: Vital Signs Temp Pulse Resp BP Pulse Ox 99.0 F 102 H 18 113/89 H 95 09/09/20 09:00 09/09/20 09:00 09/09/20 09:00 09/09/20 09:00 09/09/20 09:00 Oxygen Flow Rate (L/min) 3 Oxygen Delivery Method Mechanical Ventilator Weight: 156 lb 15.506 oz Body Mass Index (BMI) 30.7 Intake & Output: Intake and Output for Last 24 Hours 09/08/20 09/09/20 09/10/20 03:59 03:59 03:59 Intake Total 112 / 112 2917.00 / 2917.00 127 / 127 Output Total 300 / 300 1000 / 1000 Balance 112 / 112 2617.00 / 2617.00 -873 / -873 Lab / Micro Data Result Diagrams: 09/08/20 05:40 09/08/20 05:40 Labs: Laboratory Results - last 24 hr 09/08/20 12:03: POC Glucose 100 09/08/20 18:17: POC Glucose 103 09/09/20 01:11: POC Glucose 100 09/09/20 06:13: POC Glucose 90 Micro: Microbiology 09/08/20 11:08 Sputum, Tracheal Aspirate Gram Stain - Final 09/08/20 11:08 Sputum, Tracheal Aspirate Respiratory Culture - Preliminary GNR Poss Pseudomonas sp Radiography Diagnostic Testing: Radiology Impression Acute Abdomen Series 09/09/20 08:04 IMPRESSION: Nonspecific bowel gas pattern. I suspect fecal material within the colon. Electronically Signed: Matti Greer MD at 10:42 EDT , Service support , Physical Exam Const alert and no apparent distress HEENT Head and Scalp: normocephalic Mouth: dry mucous membranes Eyes PERRL, EOMs intact bilaterally and conjunctivae normal Neck supple Resp normal respiratory effort, no retractions and no use of accessory muscles Resp Narrative: Few scattered rhonchi Auscultation: rhonchi; Negative for crackles, rales or wheezes Cardio regular rate, regular rhythm, S1 normal heart sound, S2 normal heart sound, no murmurs and no clicks GI soft to palpation, non-tender and non-distended; Negative for hepatosplenomegaly GI Narrative: PEG in place, diverting ostomy noted with small amounts of stool in the bag Extremity no clubbing, cyanosis or edema Extremity Narrative: Significant spasticity in all 4 extremities with contractures Skin no wounds, skin turgor normal, no jaundice, no petechiae and no mottling Skin Narrative: Skin irritation and erythematous rash surrounding diverting ostomy, skin is pale Neuro Neuro Narrative: 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 Sensorium / Orientation: awake and alert Assessment & Plan Assessment/Plan (1) Acute and chronic respiratory failure with hypoxia: (2) Aspiration into airway: (3) Cerebral palsy: QUALIFIERS: Cerebral palsy type: spastic quadriplegic Qualified Code(s): G80.0 - Spastic quadriplegic cerebral palsy PLAN: Acute on chronic hypoxic respiratory failure secondary to aspiration versus mucous plug -Chronic trach and at baseline patient is T-piece during the day and trilogy vent dependent at night -Recent trach exchange -Sputum culture held by pulmonary given the fact that he has a chronic trach -Continue Unasyn would discharge on Augmentin to complete 7-day course for aspiration -Continue Vest therapy -Continue CoughAssist -T-piece trials today -As needed nebulizers via albuterol -Mucolytic's -pulmonology following--> appreciate input 09/09/2020: His respiratory issues appear to be improving, continue with antibiotics. Appreciate pulmonology's assistance Ileus -Abdominal x-ray does not show an obstruction -Can restart tube feeds at half the rate and continue with the antinausea medications Skin breakdown at diverting ostomy site -Consult wound care Recent upper GI bleed secondary to gastric ulcers/esophagitis -Continue twice daily PPI History of candidal esophagitis -completed Diflucan at the end of April 2020 Mild hyponatremia -Sodium is 135 -Free water is going at 100 cc/h via his PEG--> this was initially started at the request of the parents -Home free water is approximately 1100 cc daily -I recommended that we decrease his free water at 100 an hour but only for 12 hours during the day-family agreeable Chronic anemia -Hemoglobin stable on CBC this a.m. Chronic thrombocytopenia -Platelets have normalized at this time 184,000 Cerebral palsy with spastic quadriplegia -Continue home medications -Continue tube feed via PEG DVT prophylaxis -Lovenox 30 mg daily -SCDs CODE STATUS -Full code Charges/Coding Visit Charges Inpatient E&M: 90952 Subs Hosp L2
[2020-09-09 12:40] LABS: Bedside Glucose 91 mg/dL (70-110)
[2020-09-09] MEDS: Lactated Ringers 1,000 ML 50 ML IV (17:48)
--- NOTE | 2020-09-09 20:19 | NURSING ---
Addendum entered by Kenya Nunes 09/09/20 23:44: This pt remained in this RN's care, did not handoff to RE Mcdaniels Original Note: Handoff given to RE Mcdaniels at this time. Emery RN
[2020-09-09] MEDS: Jevity 1.5 1,000 ML 15 ML GT (22:48)
[2020-09-10] VITALS (11 sets, daily range): BP systolic 101–146; BP diastolic 67–86; PULSE 68–124; RESP 14–39; TEMP 36.6–37.9; O2SAT 93–97
[2020-09-10] MEDS: GABAPENTIN 250 MG/5 ML SOLUTION 100 MG GT ×2 (00:21→05:06)
[2020-09-10] MEDS: Baclofen 10 MG Tablet 20 MG GT ×4 (00:21→20:13)
[2020-09-10] MEDS: Metoclopramide 10 MG/2 ML Vial 5 MG IV ×4 (00:21→18:17)
[2020-09-10 00:36] LABS: Bedside Glucose 96 mg/dL (70-110)
[2020-09-10 06:10] LABS: Bedside Glucose 83 mg/dL (70-110)
[2020-09-10] MEDS: 0.9% Saline Lock 10 ML Syringe IV ×4 (06:16→21:28)
[2020-09-10 06:19] LABS: Absolute Lymphocyte Count 1.81 X10^3/uL (0.83-4.51); Absolute Neutrophil Count 3.1 X10^3/uL (2.0-7.7); Basophil# 0.01 X10^3/uL; Basophil% 0.2 % (0-1); Eosinophil# 0.25 X10^3/uL; Eosinophils% 4.1 % (0-5); Hematocrit 32.8 % (40-54); Hemoglobin 10.6 g/dL (13.0-16.5); Lymphocyte # 1.81 X10^3/ul (0.83-4.51); Lymphocyte % 29.6 % (19-41); Mean Corp Hgb Conc 32.3 g/dL (32-36); Mean Corpuscular Hgb 28.4 pg (27.0-32.0); Mean Corpuscular Volume 87.9 fL (80-94); Mean Platelet Vol. 10.1 fl (6.2-12.0); Monocyte# 0.87 X10^3/uL; Monocyte% 14.2 % (0-10); NRBC Flagged by Analyzer 0 % (0-5); Neutrophil # 3.14 X10^3/uL (2.7-7.7); Neutrophil % 51.4 % (47-70); Platelet Count 138 K/mm3 (150-450); RBC Distribution Width CV 14.2 % (11.6-14.6); RBC Distribution Width SD 45.4 fl (35.1-43.9); Red Blood Count 3.73 M/mm3 (4.6-6.2); White Blood Count 6.1 K/mm3 (4.4-11.0)
--- NOTE | 2020-09-10 06:39 | NURSING ---
Found 1 syringe of oral phenobarbital in pt's med supervisor weaving room. Counted and replaced in med room drawer with Fernanda Candelario RN. Medication is discontinued, pt receiving IV. RE Land
[2020-09-10 06:44] LABS: ALB/GLOB Ratio 0.7 RATIO (0.9-2.4); AST(SGOT) 23 U/L (15-37); Alanine Aminotransfer ALT/SGPT 35 U/L (16-61); Albumin, Serum 2.9 g/dL (3.2-5.0); Alkaline Phosphatase 126 U/L (45-117); Anion Gap 10 (5-15); BUN 18 mg/dL (7-18); Chloride 107 mmol/L (98-107); Creatinine, Serum 0.26 mg/dL (0.70-1.30); EST Glomerular Filtration Rate 425 mL/min (>60); Est Glom Filt Rate - Afr Amer 514 mL/min (>60); Estimated Creatinine Clearance 272.44 ml/min; Globulin 4.3 g/dL (2.2-4.2); Glucose 80 mg/dL (74-106); Lipase 182 U/L (73-393); Potassium 3.1 mmol/L (3.5-5.1); Protein, Total 7.2 g/dL (6.4-8.2); Sodium Level 142 mmol/L (136-145)
--- NOTE | 2020-09-10 08:00 | CPS ---
Pt's Mom put pt on his HME w/3lpm bleed-in (as per Dr Monsalve's instruction) after vest therapy was done. Sat is 95%
--- NOTE | 2020-09-10 09:02 | PN.CC_ITS ---
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 Continue empiric antibiotics 2. Defer to primary service on possible surgical evaluation 3. Monitor respiratory status. Continue baseline nocturnal ventilation. 4. Attempt T-piece during the day today if able to control emesis 5. Continue home ventilator at baseline settings IMPRESSIONS: 1. Acute on chronic hypoxic respiratory failure Clinical suspicion for mucous plugging from oral secretions with exacerbation through suctioning as presenting etiology. Patient is back on his baseline settings at this time. Continue with mechanical ventilation at night. Okay to attempt T-piece during the day today if able to control emesis. Zbigniew nue empiric antibiotics. Would not recommend steroids at this time. Positive sputum likely indicates colonization more than acute infection given lack of leukocytosis and fever. Endotracheal secretions have been minimal 2. Sinus tachycardia/recurrent emesis Unclear etiology. Patient does have increased generalized erythema. Unclear if patient may have an element of withdrawal given interruption of baclofen. Continue to monitor for other signs or symptoms of sepsis. Patient does not have leukocytosis at this time. Would continue with baseline medications at this time and monitor clinically. Patient may need to be transitioned to IV medications. Acute abdominal series was relatively unremarkable. Defer to primary service of surgery needs to be involved. 3. Cerebral palsy/spastic quadriplegia/seizure disorder/GERD/history of PE Complicates care, management, recovery and prognosis. Okay to continue with baseline medications from my perspective. Patient has a history of both PE and upper GI bleed, so anticoagulation recommendations are difficult. Some of patient's symptoms may be secondary to withdrawal symptoms. Subjective Subjective Patient did okay overnight from a respiratory standpoint. However, patient was not able to T-piece yesterday. Patient continues to have GI issues. Patient did have a Hemoccult overnight that was positive. Objective Data Objective Data Vital Signs: Vital Signs Temp Pulse Resp BP Pulse Ox 36.7 C 87 14 101/78 95 09/10/20 04:00 09/10/20 07:17 09/10/20 04:00 09/10/20 04:00 09/10/20 07:40 Oxygen Flow Rate (L/min) 3 Oxygen Delivery Method Mechanical Ventilator Weight: 71.2 kg Body Mass Index (BMI) 30.7 Intake & Output: Intake and Output for Last 24 Hours 09/08/20 09/09/20 09/10/20 23:59 23:59 23:59 Intake Total 2591.00 / 2805.00 2037 / 2037 712 / 712 Output Total 300 / 300 1250 / 1250 Balance 2291.00 / 2505.00 787 / 787 712 / 712 Lab / Micro Data Result Diagrams: 09/10/20 06:03 09/10/20 06:03 Labs: Laboratory Results - last 24 hr 09/09/20 12:34: POC Glucose 91 09/10/20 00:17: POC Glucose 96 09/10/20 06:03: WBC 6.1, RBC 3.73 L, Hgb 10.6 L, Hct 32.8 L, MCV 87.9, MCH 28.4, MCHC 32.3, RDW Std Deviation 45.4 H, RDW Coeff of Emilee 14.2, Plt Count 138 L, MPV 10.1, Immature Gran % (Auto) 0.500, Neut % (Auto) 51.4, Lymph % (Auto) 29.6, [place] % (Auto) 14.2 H, Eos % (Auto) 4.1, Baso % (Auto) 0.2, Absolute Neuts (auto) 3.1, Absolute Lymphs (auto) 1.81, Nucleated RBC % 0 09/10/20 06:03: Sodium 142, Potassium 3.1 L, Chloride 107, Carbon Dioxide 25.0, Anion Gap 10, BUN 18, Creatinine 0.26 L, Estim Creat Clear Calc 272.44, Est GFR (MDRD) Af Amer 514, Est GFR (MDRD) Non-Af 425, BUN/Creatinine Ratio 70.0 H, Glucose 80, Calcium 8.0 L, Total Bilirubin 0.40, AST 23, ALT 35, Alkaline Phosphatase 126 H, Total Protein 7.2, Albumin 2.9 L, Globulin 4.3 H, Albumin/Globulin Ratio 0.7 L, Lipase 182 09/10/20 06:07: POC Glucose 83 Micro: Microbiology 09/08/20 11:08 Sputum, Tracheal Aspirate Gram Stain - Final 09/08/20 11:08 Sputum, Tracheal Aspirate Respiratory Culture - Preliminary Pseudomonas fluorescens 09/09/20 18:45 Gastric Fluid/Contents Gastric Occult Blood - Final Occult Blood Positive Radiography Diagnostic Testing: Radiology Impression Acute Abdomen Series 09/09/20 08:04 IMPRESSION: Nonspecific bowel gas pattern. I suspect fecal material within the colon. Electronically Signed: Matti Greer MD at 10:42 EDT , Service support , Physical Exam Const alert Constitutional Narrative: Appears baseline from a mentation standpoint Neck General: trachea midline and tracheostomy present; Negative for anterior neck swelling or lymphadenopathy Lymph Lymphatic: no lymphadenopathy noted Chest palpation of chest normal Chest: symmetrical chest wall rise Resp Effort and Inspection: mechanically ventilated; Negative for labored or uses accessory muscles Cardio regular rhythm, S1 normal heart sound, S2 normal heart sound, no murmurs, no rub and no gallops Rate: tachycardic GI soft to palpation and non-tender GI Narrative: Slightly distended. No grimacing to palpation. Colostomy and G- tube is clean, dry and intact. Extremity Extremity Narrative: Clubfeet bilaterally Skin Skin Narrative: Improvement in generalized erythema without laceration, abrasion or other focal nidus General Skin Exam: erythema Neuro Neuro Narrative: Baseline mentation Psych Attitude: agitated Charges/Coding Visit Charges Inpatient E&M: 84216 Subs Hosp L2
--- NOTE | 2020-09-10 10:45 | NURSING ---
TF increased to 40ml/hr
[2020-09-10] MEDS: Calcium Carbonate 1250 MG/5 ML 500 MG PO (11:27)
[2020-09-10] MEDS: Doxazosin 1 MG Tablet 2 MG GT (11:30)
[2020-09-10] MEDS: Ferrous Sulfate 300 MG/5 ML UDC GT (11:31)
[2020-09-10] MEDS: Loratadine 10 MG Tablet GT (11:31)
[2020-09-10] MEDS: Lansoprazole 15 MG Capsule.DR 30 MG NG (11:31)
[2020-09-10] MEDS: PLECANATIDE 3 MG TABLET PO (11:32)
[2020-09-10] MEDS: Ascorbic Acid 500 MG Tablet GT (11:33)
[2020-09-10] MEDS: GABAPENTIN 250 MG/5 ML SOLUTION 150 MG GT ×2 (11:34→20:13)
[2020-09-10] MEDS: Phenobarbital Sodium 65 MG/ML Vial 50 MG IV ×2 (11:46→21:20)
[2020-09-10] MEDS: Enoxaparin 40 MG/0.4 ML Syringe SC (11:47)
--- NOTE | 2020-09-10 12:15 | NURSING ---
Patient with large emesis of TF and medications about 10 minutes after medication administration.
[2020-09-10] MEDS: proMETHazine 25 MG/ML Syringe 12.5 MG IM ×2 (12:44→18:24)
--- NOTE | 2020-09-10 12:48 | PCM.PN.HOSP ---
Subjective Subjective No issues overnight, had some dark residuals which tested positive for some blood but he does have known esophagitis. Objective Data Objective Data Vital Signs: Vital Signs Temp Pulse Resp BP Pulse Ox 97.8 F 77 18 137/83 H 93 09/10/20 10:46 09/10/20 10:46 09/10/20 10:46 09/10/20 10:46 09/10/20 10:46 Oxygen Flow Rate (L/min) 3.5 Oxygen Delivery Method T-piece Weight: 156 lb 15.506 oz Body Mass Index (BMI) 30.7 Intake & Output: Intake and Output for Last 24 Hours 09/09/20 09/10/20 09/11/20 03:59 03:59 03:59 Intake Total 2917.00 / 2917.00 1711 / 1711 737 / 737 Output Total 300 / 300 1250 / 1250 Balance 2617.00 / 2617.00 461 / 461 737 / 737 Lab / Micro Data Result Diagrams: 09/10/20 06:03 09/10/20 06:03 Labs: Laboratory Results - last 24 hr 09/10/20 00:17: POC Glucose 96 09/10/20 06:03: WBC 6.1, RBC 3.73 L, Hgb 10.6 L, Hct 32.8 L, MCV 87.9, MCH 28.4, MCHC 32.3, RDW Std Deviation 45.4 H, RDW Coeff of Emilee 14.2, Plt Count 138 L, MPV 10.1, Immature Gran % (Auto) 0.500, Neut % (Auto) 51.4, Lymph % (Auto) 29.6, Carbon % (Auto) 14.2 H, Eos % (Auto) 4.1, Baso % (Auto) 0.2, Absolute Neuts (auto) 3.1, Absolute Lymphs (auto) 1.81, Nucleated RBC % 0 09/10/20 06:03: Sodium 142, Potassium 3.1 L, Chloride 107, Carbon Dioxide 25.0, Anion Gap 10, BUN 18, Creatinine 0.26 L, Estim Creat Clear Calc 272.44, Est GFR (MDRD) Af Amer 514, Est GFR (MDRD) Non-Af 425, BUN/Creatinine Ratio 70.0 H, Glucose 80, Calcium 8.0 L, Total Bilirubin 0.40, AST 23, ALT 35, Alkaline Phosphatase 126 H, Total Protein 7.2, Albumin 2.9 L, Globulin 4.3 H, Albumin/Globulin Ratio 0.7 L, Lipase 182 09/10/20 06:07: POC Glucose 83 Micro: Microbiology 09/08/20 11:08 Sputum, Tracheal Aspirate Gram Stain - Final 09/08/20 11:08 Sputum, Tracheal Aspirate Respiratory Culture - Preliminary Pseudomonas fluorescens 09/09/20 18:45 Gastric Fluid/Contents Gastric Occult Blood - Final Occult Blood Positive Physical Exam Const alert and no apparent distress HEENT normocephalic Eyes PERRL, EOMs intact bilaterally and conjunctivae normal Neck supple Resp normal respiratory effort, no retractions and no use of accessory muscles Resp Narrative: Few scattered rhonchi Auscultation: rhonchi; Negative for crackles, rales or wheezes Cardio regular rate, regular rhythm, S1 normal heart sound, S2 normal heart sound, no murmurs and no clicks GI soft to palpation, non-tender and non-distended; Negative for hepatosplenomegaly GI Narrative: PEG in place, diverting ostomy noted with small amounts of stool and air. 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 Sensorium / Orientation: awake and alert Assessment & Plan Assessment/Plan (1) Acute and chronic respiratory failure with hypoxia: (2) Aspiration into airway: (3) Cerebral palsy: QUALIFIERS: Cerebral palsy type: spastic quadriplegic Qualified Code(s): G80.0 - Spastic quadriplegic cerebral palsy PLAN: Acute on chronic hypoxic respiratory failure secondary to aspiration versus mucous plug -Chronic trach and at baseline patient is T-piece during the day and trilogy vent dependent at night -Recent trach exchange -Sputum culture held by pulmonary given the fact that he has a chronic trach -Continue Unasyn would discharge on Augmentin to complete 7-day course for aspiration -Continue Vest therapy -Continue CoughAssist -T-piece trials today -As needed nebulizers via albuterol -Mucolytic's -pulmonology following--> appreciate input 09/09/2020: His respiratory issues appear to be improving, continue with antibiotics. Appreciate pulmonology's assistance 09/10/2020: We'll continue with Unasyn, he did grow Pseudomonas species however this appears to be colonization secondary to his improvement a nonpseudomonal antibiotic. Will not enio this culture Ileus -Abdominal x-ray does not show an obstruction -Can restart tube feeds at half the rate and continue with the antinausea medications -Attempted to increase his tube feeds to 40 cc/h however he did have another episode of emesis, will decrease rate back to 15 and monitor him overnight see if we can stimulate some GI function, he did have a bowel movement yesterday. X-ray demonstrated ileus though it is possible to have intermittent obstruction secondary to his ostomy however the family seems hesitant for any type of aggressive surgical intervention Skin breakdown at diverting ostomy site -Consult wound care Recent upper GI bleed secondary to gastric ulcers/esophagitis -Continue twice daily PPI -Hemoglobin is 10.6, and fecal occult testing positive for blood again however this is common given his esophagitis history we'll add Carafate to his regimen History of candidal esophagitis -completed Diflucan at the end of April 2020 Mild hyponatremia -Sodium is 135 -Free water is going at 100 cc/h via his PEG--> this was initially started at the request of the parents -Home free water is approximately 1100 cc daily -I recommended that we decrease his free water at 100 an hour but only for 12 hours during the day-family agreeable Chronic anemia -Hemoglobin stable on CBC this a.m. Chronic thrombocytopenia -Platelets have normalized at this time 184,000 Cerebral palsy with spastic quadriplegia -Continue home medications -Continue tube feed via PEG DVT prophylaxis -Lovenox 30 mg daily -SCDs CODE STATUS -Full code Charges/Coding Visit Charges Inpatient E&M: 13027 Subs Hosp L2
--- NOTE | 2020-09-10 13:10 | NURSING ---
TF decreased to 15ml/hr.
[2020-09-10 13:26] LABS: Bedside Glucose 78 mg/dL (70-110)
[2020-09-10 15:11] LABS: Bedside Glucose 78 mg/dL (70-110)
--- NOTE | 2020-09-10 15:18 | CASEMGMT ---
LAYA received a call from Trinity Conn from [facility] of . She requested that d/c instructions be faxed to [phone] at d/c. LAYA told her SW will definitely fax d/c instructions when done. Shanthi Bañuelos [employer] TECH[employer]IST ESMER
--- NOTE | 2020-09-10 15:25 | CASEMGMT ---
RE GUADALUPE NOTE: Per Dr Young, pt may be ready to discharge today. RE GUADALUPE to talk w/pt's mother @ bedside. RE GUADALUPE inquired if she would like any additional HHC services than the SN, ST, and OT. She declines additional services thru HHC at this time. Call placed to [facility] and they were made aware there is a possibility pt will be ready for discharge back home today. She states she will notify the team re: same. Green sheet placed on chart w/instructions for notifying HHC and faxing d/c paperwork to [facility] if pt is discharged today. Janice LEVINN RE CM
--- NOTE | 2020-09-10 16:12 | NURSING ---
Patient with small emesis x1 of TF. Parents at bedside providing care to patient.
--- NOTE | 2020-09-10 16:15 | NURSING ---
Tube feed turned off.
[2020-09-10] MEDS: Dextrose 5%-Lactated Ringers 1,000 ML 50 ML IV (18:16)
[2020-09-10 18:41] LABS: Bedside Glucose 74 mg/dL (70-110)
[2020-09-10] MEDS: Sucralfate 1 GM Tablet NG (21:20)
[2020-09-10] MEDS: LORazepam 1 MG Tablet GT (22:29)
[2020-09-11] VITALS (12 sets, daily range): BP systolic 90–152; BP diastolic 56–131; PULSE 59–112; RESP 12–21; TEMP 36.3–37.1; O2SAT 95–98
[2020-09-11] MEDS: Acetaminophen 325 MG Tablet 650 MG PO ×3 (00:07→18:08)
[2020-09-11] MEDS: Baclofen 10 MG Tablet 20 MG GT ×5 (00:07→23:43)
[2020-09-11] MEDS: Metoclopramide 10 MG/2 ML Vial 5 MG IV ×5 (00:08→23:43)
[2020-09-11] MEDS: GABAPENTIN 250 MG/5 ML SOLUTION 100 MG GT ×3 (00:09→23:43)
[2020-09-11] MEDS: 0.9% Saline Lock 10 ML Syringe IV ×4 (00:15→23:43)
[2020-09-11 00:31] LABS: Bedside Glucose 91 mg/dL (70-110)
[2020-09-11 06:06] LABS: Absolute Lymphocyte Count 2.36 X10^3/uL (0.83-4.51); Absolute Neutrophil Count 3.5 X10^3/uL (2.0-7.7); Basophil# 0.01 X10^3/uL; Basophil% 0.1 % (0-1); Eosinophil# 0.04 X10^3/uL; Eosinophils% 0.6 % (0-5); Hematocrit 33.3 % (40-54); Hemoglobin 10.7 g/dL (13.0-16.5); Lymphocyte # 2.36 X10^3/ul (0.83-4.51); Lymphocyte % 34.5 % (19-41); Mean Corp Hgb Conc 32.1 g/dL (32-36); Mean Corpuscular Volume 87.2 fL (80-94); Mean Platelet Vol. 9.9 fl (6.2-12.0); Monocyte# 0.96 X10^3/uL; NRBC Flagged by Analyzer 0 % (0-5); Neutrophil # 3.45 X10^3/uL (2.7-7.7); Neutrophil % 50.5 % (47-70); Platelet Count 171 K/mm3 (150-450); RBC Distribution Width CV 14.4 % (11.6-14.6); RBC Distribution Width SD 45.8 fl (35.1-43.9); Red Blood Count 3.82 M/mm3 (4.6-6.2); White Blood Count 6.8 K/mm3 (4.4-11.0)
[2020-09-11 06:21] LABS: Bedside Glucose 86 mg/dL (70-110)
[2020-09-11 06:37] LABS: Anion Gap 9 (5-15); BUN 12 mg/dL (7-18); BUN/Creat Ratio 45.1 RATIO (10-20); Calcium,Total 8.2 mg/dL (8.5-10.1); Chloride 109 mmol/L (98-107); Creatinine, Serum 0.27 mg/dL (0.70-1.30); EST Glomerular Filtration Rate 408 mL/min (>60); Est Glom Filt Rate - Afr Amer 494 mL/min (>60); Estimated Creatinine Clearance 262.35 ml/min; Glucose 87 mg/dL (74-106); Potassium 3.4 mmol/L (3.5-5.1); Sodium Level 142 mmol/L (136-145)
[2020-09-11] MEDS: Sucralfate 1 GM Tablet NG ×4 (06:43→21:52)
--- NOTE | 2020-09-11 08:27 | PCM.PN.INT ---
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 Likely okay to discontinue antibiotics from my perspective 2. Defer to primary service on possible surgical evaluation 3. Monitor respiratory status. Continue baseline nocturnal ventilation. 4. Attempt T-piece during the day today if able to control emesis 5. Continue home ventilator at baseline settings IMPRESSIONS: 1. Acute on chronic hypoxic respiratory failure Clinical suspicion for mucous plugging from oral secretions with exacerbation through suctioning as presenting etiology. Patient is back on his baseline settings at this time. Continue with mechanical ventilation at night. Clinical suspicion is patient is at his baseline for respiratory failure. We will try to ambulate home settings with T-piece while awake. Patient is growing Pseudomonas in his sputum, but this likely represents colonization as he has grown this several times in the past. Patient is not having significant leukocytosis and antibiotics may be adding to GI symptoms. 2. Sinus tachycardia/recurrent emesis Unclear etiology. Patient does have increased generalized erythema. Unclear if patient may have an element of withdrawal given interruption of baclofen. Continue to monitor for other signs or symptoms of sepsis. Patient does not have leukocytosis at this time. Would continue with baseline medications at this time and monitor clinically. Patient may need to be transitioned to IV medications. Acute abdominal series was relatively unremarkable. Defer to primary service of surgery needs to be involved. 3. Cerebral palsy/spastic quadriplegia/seizure disorder/GERD/history of PE Complicates care, management, recovery and prognosis. Okay to continue with baseline medications from my perspective. Patient has a history of both PE and upper GI bleed, so anticoagulation recommendations are difficult. Some of patient's symptoms may be secondary to withdrawal symptoms. Subjective Subjective Patient remained stable from a respiratory standpoint. Unfortunately, patient continues to have GI issues limiting ability to tolerate tube feeds. Color is much better. Patient with good vent synchrony noted overnight. Objective Data Objective Data Vital Signs: Vital Signs Temp Pulse Resp BP Pulse Ox 37.0 C 82 14 113/78 97 09/11/20 06:00 09/11/20 07:00 09/11/20 06:00 09/11/20 06:00 09/11/20 07:47 Oxygen Flow Rate (L/min) 3 Oxygen Delivery Method Mechanical Ventilator Weight: 71.2 kg Body Mass Index (BMI) 30.7 Intake & Output: Intake and Output for Last 24 Hours 09/09/20 09/10/20 09/11/20 23:59 23:59 23:59 Intake Total 2036 / 2036 2220.33 / 2220.33 646.17 / 646.17 Output Total 1250 / 1250 75 / 75 Balance 787 / 787 2220.33 / 2145.33 571.17 / 571.17 Lab / Micro Data Result Diagrams: 09/11/20 05:54 09/11/20 05:54 Labs: Laboratory Results - last 24 hr 09/10/20 13:09: POC Glucose 78 09/10/20 14:36: POC Glucose 78 09/10/20 18:35: POC Glucose 74 09/11/20 00:18: POC Glucose 91 09/11/20 05:54: WBC 6.8, RBC 3.82 L, Hgb 10.7 L, Hct 33.3 L, MCV 87.2, MCH 28.0, MCHC 32.1, RDW Std Deviation 45.8 H, RDW Coeff of Emilee 14.4, Plt Count 171, MPV 9.9, Immature Gran % (Auto) 0.300, Neut % (Auto) 50.5, Lymph % (Auto) 34.5, Boyd % (Auto) 14.0 H, Eos % (Auto) 0.6, Baso % (Auto) 0.1, Absolute Neuts (auto) 3.5, Absolute Lymphs (auto) 2.36, Nucleated RBC % 0 09/11/20 05:54: Sodium 142, Potassium 3.4 L, Chloride 109 H, Carbon Dioxide 24.0, Anion Gap 9, BUN 12, Creatinine 0.27 L, Estim Creat Clear Calc 262.35, Est GFR (MDRD) Af Amer 494, Est GFR (MDRD) Non-Af 408, BUN/Creatinine Ratio 45.1 H, Glucose 87, Calcium 8.2 L 09/11/20 06:08: POC Glucose 86 Micro: Microbiology 09/08/20 11:08 Sputum, Tracheal Aspirate Gram Stain - Final 09/08/20 11:08 Sputum, Tracheal Aspirate Respiratory Culture - Preliminary Pseudomonas aeroginosa 09/09/20 18:45 Gastric Fluid/Contents Gastric Occult Blood - Final Occult Blood Positive Physical Exam Const alert Constitutional Narrative: Appears baseline from a mentation standpoint Neck General: trachea midline and tracheostomy present; Negative for anterior neck swelling or lymphadenopathy Lymph Lymphatic: no lymphadenopathy noted Chest palpation of chest normal Chest: symmetrical chest wall rise Resp Effort and Inspection: mechanically ventilated; Negative for labored or uses accessory muscles Cardio regular rhythm, S1 normal heart sound, S2 normal heart sound, no murmurs, no rub and no gallops Rate: tachycardic GI soft to palpation and non-tender GI Narrative: Slightly distended. No grimacing to palpation. Colostomy and G-tube is clean, dry and intact. Extremity Extremity Narrative: Clubfeet bilaterally Skin Skin Narrative: Resolution in generalized erythema without laceration, abrasion or other focal nidus General Skin Exam: erythema Neuro Neuro Narrative: Baseline mentation Psych Attitude: agitated Charges/Coding Visit Charges Inpatient E&M: 23488 Subs Hosp L3
[2020-09-11] MEDS: Ascorbic Acid 500 MG Tablet GT ×2 (10:02→14:37)
[2020-09-11] MEDS: Doxazosin 1 MG Tablet 2 MG GT (10:02)
[2020-09-11] MEDS: Calcium Carbonate 1250 MG/5 ML 500 MG PO (10:03)
[2020-09-11] MEDS: Enoxaparin 40 MG/0.4 ML Syringe SC (10:03)
[2020-09-11] MEDS: Loratadine 10 MG Tablet GT (10:04)
[2020-09-11] MEDS: PLECANATIDE 3 MG TABLET PO (10:05)
[2020-09-11] MEDS: Phenobarbital Sodium 65 MG/ML Vial 50 MG IV ×2 (10:10→21:52)
--- NOTE | 2020-09-11 11:23 | PN.HOSP_ITS ---
Subjective Subjective Had some emesis yesterday with increasing tube feeds to 40 cc/h. He did have some bowel movements yesterday as well as today therefore mostly just a motility issue. He is doing well today and had no further issues overnight Objective Data Objective Data Vital Signs: Vital Signs Temp Pulse Resp BP Pulse Ox 97.5 F L 59 L 15 96/58 L 97 09/11/20 09:58 09/11/20 09:58 09/11/20 09:58 09/11/20 09:58 09/11/20 09:58 Oxygen Flow Rate (L/min) 3 Oxygen Delivery Method Mechanical Ventilator Weight: 156 lb 15.506 oz Body Mass Index (BMI) 30.7 Intake & Output: Intake and Output for Last 24 Hours 09/10/20 09/11/20 09/12/20 03:59 03:59 03:59 Intake Total 1711 / 1711 2220.33 / 2220.33 1027.84 / 1027.84 Output Total 1250 / 1250 75 / 75 Balance 461 / 461 2145.33 / 2145.33 1027.84 / 1027.84 Lab / Micro Data Result Diagrams: 09/11/20 05:54 09/11/20 05:54 Labs: Laboratory Results - last 24 hr 09/10/20 13:09: POC Glucose 78 09/10/20 14:36: POC Glucose 78 09/10/20 18:35: POC Glucose 74 09/11/20 00:18: POC Glucose 91 09/11/20 05:54: WBC 6.8, RBC 3.82 L, Hgb 10.7 L, Hct 33.3 L, MCV 87.2, MCH 28.0, MCHC 32.1, RDW Std Deviation 45.8 H, RDW Coeff of [place]ilee 14.4, Plt Count 171, MPV 9.9, Immature Gran % (Auto) 0.300, Neut % (Auto) 50.5, Lymph % (Auto) 34.5, [place] % (Auto) 14.0 H, Eos % (Auto) 0.6, Baso % (Auto) 0.1, Absolute Neuts (auto) 3.5, Absolute Lymphs (auto) 2.36, Nucleated RBC % 0 09/11/20 05:54: Sodium 142, Potassium 3.4 L, Chloride 109 H, Carbon Dioxide 24.0, Anion Gap 9, BUN 12, Creatinine 0.27 L, Estim Creat Clear Calc 262.35, Est GFR (MDRD) Af Amer 494, Est GFR (MDRD) Non-Af 408, BUN/Creatinine Ratio 45.1 H, Glucose 87, Calcium 8.2 L 09/11/20 06:08: POC Glucose 86 Micro: Microbiology 09/08/20 11:08 Sputum, Tracheal Aspirate Gram Stain - Final 09/08/20 11:08 Sputum, Tracheal Aspirate Respiratory Culture - Preliminary Pseudomonas aeroginosa 09/09/20 18:45 Gastric Fluid/Contents Gastric Occult Blood - Final Occult Blood Positive Physical Exam Const alert and no apparent distress HEENT normocephalic Eyes PERRL, EOMs intact bilaterally and conjunctivae normal Neck supple Neck Narrative: Trachea midline, Shiley [address] patient is currently attached to the ventilator Resp normal respiratory effort, no retractions and no use of accessory muscles Resp Narrative: Few scattered rhonchi Auscultation: Negative for crackles, rales or wheezes Cardio regular rate, regular rhythm, S1 normal heart sound, S2 normal heart sound, no murmurs and no clicks GI soft to palpation, non-tender and non-distended; Negative for hepatosplenomegaly GI Narrative: PEG in place, diverting ostomy noted with small amounts of stool and air. 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 Sensorium / Orientation: awake and alert Assessment & Plan Assessment/Plan (1) Acute and chronic respiratory failure with hypoxia: (2) Aspiration into airway: (3) Cerebral palsy: QUALIFIERS: Cerebral palsy type: spastic quadriplegic Qualified Code(s): G80.0 - Spastic quadriplegic cerebral palsy PLAN: Acute on chronic hypoxic respiratory failure secondary to aspiration versus muc ous plug -Chronic trach and at baseline patient is T-piece during the day and trilogy ve nt dependent at night -Recent trach exchange -Sputum culture held by pulmonary given the fact that he has a chronic trach -Continue Unasyn would discharge on Augmentin to complete 7-day course for asp iration -Continue Vest therapy -Continue CoughAssist -T-piece trials today -As needed nebulizers via albuterol -Mucolytic's -pulmonology following--> appreciate input 09/09/2020: His respiratory issues appear to be improving, continue with antibiotics. Appreciate pulmonology's assistance 09/10/2020: We'll continue with Unasyn, he did grow Pseudomonas species however this appears to be colonization secondary to his improvement a nonpseudomonal antibiotic. Will not enio this culture 09/11/2020: Continue current therapy for now Ileus -Abdominal x-ray does not show an obstruction -Can restart tube feeds at half the rate and continue with the antinausea medications -Attempted to increase his tube feeds to 40 cc/h however he did have another episode of emesis, will decrease rate back to 15 and monitor him overnight see if we can stimulate some GI function, he did have a bowel movement yesterday. X-ray demonstrated ileus though it is possible to have intermittent obstruction secondary to his ostomy however the family seems hesitant for any type of aggressive surgical intervention -Feeling this issue is more of a motility issue which he chronically has. The family states that they adjust his rate sometimes at home as well. We will restart him on 15 cc an hour today throughout the day and see if he tolerates that and then tomorrow could potentially increase him to 20 if he continues to tolerate that slight increase they could plan for discharge. Family is okay with this Skin breakdown at diverting ostomy site -Consult wound care Recent upper GI bleed secondary to gastric ulcers/esophagitis -Continue twice daily PPI -Hemoglobin is 10.6, and fecal occult testing positive for blood again however this is common given his esophagitis history we'll add Carafate to his regimen -Hemoglobin has improved slightly, will monitor as an outpatient with a CBC in a few days after discharge History of candidal esophagitis -completed Diflucan at the end of April 2020 Mild hyponatremia -Sodium is 135 -Free water is going at 100 cc/h via his PEG--> this was initially started at the request of the parents -Home free water is approximately 1100 cc daily -I recommended that we decrease his free water at 100 an hour but only for 12 hours during the day-family agreeable -Resolved Chronic anemia -Hemoglobin stable on CBC this a.m. Chronic thrombocytopenia -Platelets have normalized at this time 184,000 Cerebral palsy with spastic quadriplegia -Continue home medications -Continue tube feed via PEG DVT prophylaxis -Lovenox 30 mg daily -SCDs CODE STATUS -Full code, I had a 20-minute discussion advance care planning delineating the differences between full code, DNR CCA, and the DNR CC. Charges/Coding Visit Charges Inpatient E&M: 99291 Subs Hosp L2 Procedures Hospitalists Procedures: 46442 Advncd Care Plan 30 Min
[2020-09-11] MEDS: GABAPENTIN 250 MG/5 ML SOLUTION 150 MG GT ×2 (12:16→17:43)
[2020-09-11] MEDS: Jevity 1.5 1,000 ML 15 ML GT (12:36)
--- NOTE | 2020-09-11 14:19 | NURSING ---
Had been consulted on patient d/t having an ostomy. pt is known to this nurse from many previous admissions. Pt had gained quite a bit of weight and stoma size had increased. the appliance size had been changed previously. parents and caretakers typically change the appliance at home. appliance was changed on 09/09/20. will monitor for further needs.
[2020-09-11] MEDS: Potassium Chloride Oral Soln 20 MEQ/15 ML UDC 40 MEQ NG (14:38)
[2020-09-11] MEDS: Ferrous Sulfate 300 MG/5 ML UDC GT (14:38)
[2020-09-11 16:25] LABS: Bedside Glucose 77 mg/dL (70-110)
[2020-09-11] MEDS: Dextrose 5%-Lactated Ringers 1,000 ML 50 ML IV (17:42)
[2020-09-11 18:16] LABS: Bedside Glucose 87 mg/dL (70-110)
[2020-09-12] VITALS (8 sets, daily range): BP systolic 112–121; BP diastolic 77–88; PULSE 58–99; RESP 13–14; TEMP 36.4–36.7; O2SAT 96–97
[2020-09-12 00:06] LABS: Bedside Glucose 80 mg/dL (70-110)
--- NOTE | 2020-09-12 00:42 | NURSING ---
Trach care done 09/11 PM w/ T. Saritha from respiratory. Mom at bedside to assist as well. Trach to vent w/ 3 L. RE Tamez.
[2020-09-12] MEDS: Sucralfate 1 GM Tablet NG ×2 (06:19→10:19)
[2020-09-12] MEDS: 0.9% Saline Lock 10 ML Syringe IV ×2 (06:19→14:33)
[2020-09-12] MEDS: GABAPENTIN 250 MG/5 ML SOLUTION 100 MG GT (06:19)
[2020-09-12] MEDS: Baclofen 10 MG Tablet 20 MG GT ×2 (06:19→12:30)
[2020-09-12] MEDS: Metoclopramide 10 MG/2 ML Vial 5 MG IV ×2 (06:19→12:31)
[2020-09-12] MEDS: Acetaminophen 325 MG Tablet 650 MG PO (06:26)
[2020-09-12 06:41] LABS: Bedside Glucose 107 mg/dL (70-110)
[2020-09-12 07:24] LABS: Anion Gap 8 (5-15); BUN 7 mg/dL (7-18); Calcium,Total 8.3 mg/dL (8.5-10.1); Chloride 107 mmol/L (98-107); Creatinine, Serum 0.26 mg/dL (0.70-1.30); EST Glomerular Filtration Rate 421 mL/min (>60); Est Glom Filt Rate - Afr Amer 510 mL/min (>60); Estimated Creatinine Clearance 272.44 ml/min; Glucose 110 mg/dL (74-106); Potassium 3.8 mmol/L (3.5-5.1); Sodium Level 139 mmol/L (136-145)
--- NOTE | 2020-09-12 08:28 | PN.CC_ITS ---
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 We will discontinue antibiotics 2. Defer to primary service on abdominal issues 3. Monitor respiratory status. Continue baseline nocturnal ventilation. 4. Attempt T-piece during the day today if able to control emesis 5. Continue home ventilator at baseline settings IMPRESSIONS: 1. Acute on chronic hypoxic respiratory failure Clinical suspicion for mucous plugging from oral secretions with exacerbation through suctioning as presenting etiology. Patient is back on his baseline settings at this time. Continue with mechanical ventilation at night. Clinical suspicion patient is at his baseline for respiratory failure. We will try to emulate home settings with T-piece while awake. Patient is growing Pseudomonas in his sputum, but this likely represents colonization as he has grown this several times in the past. Patient is not having significant leukocytosis and antibiotics may be adding to GI symptoms. Antibiotics will be discontinued. 2. Sinus tachycardia/recurrent emesis Unclear etiology. Patient does have increased generalized erythema. Unclear if patient may have an element of withdrawal given interruption of baclofen. Continue to monitor for other signs or symptoms of sepsis. Patient does not have leukocytosis at this time. Would continue with baseline medications at this time and monitor clinically. Acute abdominal series was relatively unremarkable. Defer to primary service for GI issues and if surgery needs to be involved. 3. Cerebral palsy/spastic quadriplegia/seizure disorder/GERD/history of PE Complicates care, management, recovery and prognosis. Okay to continue with baseline medications from my perspective. Patient has a history of both PE and upper GI bleed, so anticoagulation recommendations are difficult. Some of patient's initial symptoms may be secondary to withdrawal symptoms. Subjective Subjective Patient has done okay from a respiratory standpoint. Patient was able to be on T-piece yesterday during the day. Patient continues to have some difficulty with tolerating tube feeds. No significant bleeding complications have been reported. Objective Data Objective Data Vital Signs: Vital Signs Temp Pulse Resp BP Pulse Ox 36.6 C 85 14 121/88 H 96 09/12/20 08:01 09/12/20 08:01 09/12/20 08:01 09/12/20 08:01 09/12/20 08:01 Oxygen Flow Rate (L/min) 3 Oxygen Delivery Method Mechanical Ventilator Weight: 71.2 kg Body Mass Index (BMI) 30.7 Intake & Output: Intake and Output for Last 24 Hours 09/10/20 09/11/20 09/12/20 23:59 23:59 23:59 Intake Total 2220.33 / 2220.33 1926.84 / 2106.84 911.17 / 911.17 Output Total 115 / 215 100 / 100 Balance 2220.33 / 2145.33 1811.84 / 1891.84 811.17 / 811.17 Lab / Micro Data Result Diagrams: 09/11/20 05:54 09/12/20 06:50 Labs: Laboratory Results - last 24 hr 09/11/20 12:13: POC Glucose 77 09/11/20 18:01: POC Glucose 87 09/11/20 23:56: POC Glucose 80 09/12/20 06:37: POC Glucose 107 09/12/20 06:50: Sodium 139, Potassium 3.8, Chloride 107, Carbon Dioxide 24.0, Anion Gap 8, BUN 7, Creatinine 0.26 L, Estim Creat Clear Calc 272.44, Est GFR (MDRD) Af Amer 510, Est GFR (MDRD) Non-Af 421, BUN/Creatinine Ratio 27.0 H, Glucose 110 H, Calcium 8.3 L Micro: Microbiology 09/08/20 11:08 Sputum, Tracheal Aspirate Gram Stain - Final 09/08/20 11:08 Sputum, Tracheal Aspirate Respiratory Culture - Final Pseudomonas aeroginosa 09/09/20 18:45 Gastric Fluid/Contents Gastric Occult Blood - Final Occult Blood Positive Physical Exam Const alert Constitutional Narrative: Appears baseline from a mentation standpoint Neck General: trachea midline and tracheostomy present; Negative for anterior neck swelling or lymphadenopathy Lymph Lymphatic: no lymphadenopathy noted Chest palpation of chest normal Chest: symmetrical chest wall rise Resp Effort and Inspection: mechanically ventilated; Negative for labored or uses ac cessory muscles Cardio regular rhythm, S1 normal heart sound, S2 normal heart sound, no murmurs, no rub and no gallops Rate: tachycardic GI soft to palpation and non-tender GI Narrative: No grimacing to palpation. Colostomy and G-tube is clean, dry and intact. Extremity Extremity Narrative: Clubfeet bilaterally Skin Skin Narrative: Resolution in generalized erythema without laceration, abrasion or other focal nidus General Skin Exam: erythema Neuro Neuro Narrative: Baseline mentation Psych Attitude: calm Mood & Affect: flat affect Charges/Coding Visit Charges Inpatient E&M: 07802 Subs Hosp L2
[2020-09-12] MEDS: Ferrous Sulfate 300 MG/5 ML UDC GT (10:19)
[2020-09-12] MEDS: Loratadine 10 MG Tablet GT (10:19)
[2020-09-12] MEDS: Doxazosin 1 MG Tablet 2 MG GT (10:19)
[2020-09-12] MEDS: Enoxaparin 40 MG/0.4 ML Syringe SC (10:19)
[2020-09-12] MEDS: PLECANATIDE 3 MG TABLET PO (10:19)
[2020-09-12] MEDS: Calcium Carbonate 1250 MG/5 ML 500 MG PO (10:20)
[2020-09-12] MEDS: Phenobarbital Sodium 65 MG/ML Vial 50 MG IV (10:35)
--- NOTE | 2020-09-12 11:16 | DCINST_ITS ---
Discharge Instructions Diet Discharge Diet: - (Continue with tube feeds at a rate of 20 cc/h, and increase this by 5 every day until you return to his baseline feeding. If he does have elevated residuals would back down by 5 cc/h and continue to monitor.) Activity Discharge Activity: Return to Normal Activity Dressing / Incision Call your doctor if you observe: Fever of 101 or Higher, Shortness of breath, Dizziness, Swelling in the ankles, Chest pain and Increased palpitations (irregular heartbeat) Follow Up Care Test Results: Test results from this visit will be discussed in further detail at your follow-up appointment, if applicable. Discharge Plan Admission Admit Date/Time: 09/07/20 15:26 Attending Provider: Barry Young Primary Care Provider: Timmy Conn Consulting Providers: Jacek Monsalve ; Yovanny Moreira ; Valarie Kee COMPUTER SECURITY MANAGER Discharge Orders/Prescriptions Prescriptions: New sucralfate 1 gram Tablet 1 g NG 1HR_ACHS 30 Days Qty: 60 RF: 0 Continued epinephrine 0.3 mg/0.3 mL auto-injector 0.3 mg IM ONCE RF: 0 simethicone 40 MG/0.6 ML bottle 40 mg GT 4X/DAY RF: 0 metoclopramide HCl 5 mg/5 mL solution 10 mg GT TID RF: 0 phenobarbital 20 MG/5 ML elixir 60 mg GT BID RF: 0 cetirizine 10 MG tablet 10 ml GT DAILY RF: 0 Lactobacillus acidophilus 1 EACH capsule 1 cap GT DAILY RF: 0 gabapentin 250 mg/5 mL (5 mL) solution 150 mg PO 1200,1800 RF: 0 lorazepam 1 MG tablet 2 mg GT Q8 PRN (Reason: Agitation) RF: 0 ferrous sulfate 15 MG/ML drops 75 mg GT DAILY RF: 0 Cough Assist 1 dose .Route .MEDSUPPLY RF: 0 oxygen concentrator 1 dose .Route .MEDSUPPLY RF: 0 ondansetron HCl 4 MG tablet 5 ml PO DAILY PRN (Reason: Nausea) RF: 0 lactose-reduced food with fibr 237 ML liquid 50 ml GT DAILY RF: 0 baclofen 5 MG/5 ML solution 20 mg GT Q6H RF: 0 doxazosin 2 mg tablet 2 mg GT DAILY Qty: 30 RF: 0 ascorbic acid (vitamin C) 500 MG/5 ML syrup 500 mg GT DAILY RF: 0 gabapentin 250 MG/5 ML solution 200 mg GT 4X/DAY RF: 0 plecanatide 3 MG tablet 3 mg GT DAILY RF: 0 magnesium hydroxide 30 ML suspension 30 ml GT DAILY PRN PRN (Reason: Constipation) RF: 0 pantoprazole 40 MG tablet 40 mg GT BID Qty: 60 RF: 0 calcium carbonate 500 mg/5 mL (1,250 mg/5 mL) suspension 500 mg PO DAILY RF: 0 Referrals / Follow Up: Jacek Monsalve MD [STAFF PHYSICIAN] - In 1 Week Timmy Conn MD [Primary Care Provider] - In 1 Week Disposition Disposition (needs filled in before D/C Order can be placed): Home Health Service
--- NOTE | 2020-09-12 11:30 | CASEMGMT ---
LAYA faxed patient's discharge instructions to [facility] with [employer]. Shanthi Bañuelos [employer] L[employer] ATTENDANT ESMER
[2020-09-12] MEDS: GABAPENTIN 250 MG/5 ML SOLUTION 150 MG GT (12:30)
--- NOTE | 2020-09-12 12:48 | CASEMGMT ---
Addendum entered by Misael Rm 09/12/20 16:24: Discharge summary also faxed to [facility] at this time. Original Note: RE GUADALUPE NOTE: Pt being discharged home. Call placed to Dayo @ [facility] and she was made aware. Discharge instructions along w/[facility] order faxed to [facility] at this time. Janice BAL RN CM
--- NOTE | 2020-09-12 15:25 | DS.PCM_ITS ---
Providers Date of Admission: 09/07/20 Primary Care Physician: Dr. Timmy Conn MD Consultations 09/07/20 17:11 Consult: Invoicing Specialist / Pulmonary Medicine Routine Consulting Provider: Pulmonary Medicine brian Araujo Reason for Consult: acute hypoxic respiratory failure EMERGENT Consult: No MD Notified: Yes Date Notified: 09/07/20 Time Notified: 17:45 Method of Notification: Text 09/08/20 04:36 Consult: Onc/Wound/programmer analyst health it Routine Comment: Reason for Consult:: Ostomy LLQ Reason For Visit: ACUTE ON CHRONIC RESPIRATOR FAILURE 2/2 ASPIRATION Diagnosis Discharge Diagnosis (1) Aspiration into airway: Status: Acute Code(s): T17.908A - Unspecified foreign body in respiratory tract, part unspecified causing other injury, initial encounter (2) Acute and chronic respiratory failure with hypoxia: Status: Chronic Code(s): J96.21 - Acute and chronic respiratory failure with hypoxia (3) Thrombocytopenia: Status: Chronic Code(s): D69.6 - Thrombocytopenia, unspecified (4) Cerebral palsy: Status: Chronic Code(s): G80.9 - Cerebral palsy, unspecified Qualifiers: Cerebral palsy type: spastic quadriplegic Qualified Code(s): G80.0 - Spastic quadriplegic cerebral palsy Medications at Discharge Home Medications simethicone 40 mg GT 4X/DAY 11/09/13 phenobarbital 60 mg GT BID 02/19/17 Lactobacillus acidophilus 1 cap GT DAILY 02/04/18 cetirizine 10 ml GT DAILY 02/04/18 metoclopramide HCl 5 mg/5 mL oral solution 10 mg GT TID ml 09/16/18 lorazepam 2 mg GT Q8 PRN 10/08/18 Cough Assist 1 dose .ROUTE .MEDSUPPLY 12/25/18 ferrous sulfate 75 mg GT DAILY 12/25/18 oxygen concentrator 1 dose .ROUTE .MEDSUPPLY 12/25/18 baclofen 20 mg GT Q6H 05/09/19 lactose-reduced food with fibr 50 ml GT DAILY 05/09/19 ondansetron HCl 5 ml PO DAILY PRN 05/09/19 doxazosin 2 mg GT DAILY #30 tab 07/11/19 gabapentin 250 mg/5 mL (5 mL) oral solution 150 mg PO 1200,1800 ml 08/03/19 ascorbic acid (vitamin C) 500 mg GT DAILY 08/04/19 gabapentin 200 mg GT 4X/DAY 09/26/19 epinephrine 0.3 mg/0.3 mL injection, auto-injector 0.3 mg IM ONCE 10/24/19 magnesium hydroxide 30 ml GT DAILY PRN PRN 04/25/20 plecanatide 3 mg GT DAILY 04/25/20 pantoprazole 40 mg GT BID #60 tab 04/26/20 calcium carbonate 500 mg PO DAILY 07/09/20 sucralfate 1 g NG 1HR_ACHS 30 Days #60 tab 09/12/20 Hospital Course Operations None Procedures None Summary of Care Provided Minutes Spent on Discharge: 45 Hospital Course: Per HPI: KRISS MICHAEL, is a 40 M who presented to the emergency department [facility] on 09/07/2020 with acute hypoxia. Mr.'s silva is a chronically ventilated patient secondary to cerebral palsy. Per discussion with his parents, who are at the bedside, he is typically on T- piece during the day and a ventilator at night. His home ventilator is a trilogy. His mother reports that he was having significant secretions and she went to suction him and his oxygen saturations dropped into the 80s. She s uctioned him with further decompensation and hypoxia with a kimberly oxygen saturation in the mid 50s. She states he was cyanotic. There are daytime nurse bag to the patient with sats recovering into the 90s and he was then placed back on the ventilator in the emergency department where his sats have been stable ever since. The suspicion is that there was an aspiration versus a mucous plugging event that caused his acute hypoxia. His parents report that he had a recent issue with a cough on his trach and his trach was exchanged last week. He is currently getting adequate tidal volumes on his home trilogy unit. His vital signs are currently stable and he is satting 95 to 99% on his mechanical ventilator. His CBC is unremarkable other than a chronic anemia which appears to be at baseline and a mild thrombocytopenia which appears to be intermittent at baseline. His current platelet count is 129,000. He has no left shift on his differential. His BMP is unremarkable. A chest x-ray was performed and shows a hypoventilatory film but no acute processes. He will be admitted to PCU as stepdown status. All history is given by the parents as the patient is nonverbal. Hospital Course: Acute on chronic hypoxic respiratory failure secondary to aspiration versus mucous plug -Chronic trach and at baseline patient is T-piece during the day and trilogy vent dependent at night -Recent trach exchange -Sputum culture held by pulmonary given the fact that he has a chronic trach -Continue Unasyn would discharge on Augmentin to complete 7-day course for aspiration -Continue Vest therapy -Continue CoughAssist -T-piece trials today -As needed nebulizers via albuterol -Mucolytic's -pulmonology following--> appreciate input 09/09/2020: His respiratory issues appear to be improving, continue with antibiotics. Appreciate pulmonology's assistance 09/10/2020: We'll continue with Unasyn, he did grow Pseudomonas species however this appears to be colonization secondary to his improvement a nonpseudomonal antibiotic. Will not enio this culture 09/11/2020: Continue current therapy for now 09/12/2020: Discussed plan for discharge today with his parents. Expressed understanding of the risk benefits of going home would like to go home today. They have an appointment with pulmonology next week at which point they will discuss the possibility of having vest therapy at home seeing as it is causing him to have more significant mucus suctioned on the feel that this would be helpful from his pulmonary status standpoint. Ileus -Abdominal x-ray does not show an obstruction -Can restart tube feeds at half the rate and continue with the antinausea medications -Attempted to increase his tube feeds to 40 cc/h however he did have another ep isode of emesis, will decrease rate back to 15 and monitor him overnight see if we can stimulate some GI function, he did have a bowel movement yesterday. X- ray demonstrated ileus though it is possible to have intermittent obstruction secondary to his ostomy however the family seems hesitant for any type of aggressive surgical intervention -Feeling this issue is more of a motility issue which he chronically has. The family states that they adjust his rate sometimes at home as well. We will re start him on 15 cc an hour today throughout the day and see if he tolerates that and then tomorrow could potentially increase him to 20 if he continues to tolerate that slight increase they could plan for discharge. Family is okay with this -He tolerated the 15 cc/h yesterday and he has been tolerating the 20 cc/h today since 8 AM. We will plan on discharge with increasing by 5 every day at home. He is to follow-up with his PCP in 3 to 5 days, would recommend obtaining a CBC in a few days to monitor his GI bleeding so far his hemoglobin has been stable here. Skin breakdown at diverting ostomy site -Consult wound care Recent upper GI bleed secondary to gastric ulcers/esophagitis -Continue twice daily PPI -Hemoglobin is 10.6, and fecal occult testing positive for blood again however this is common given his esophagitis history we'll add Carafate to his regimen -Hemoglobin has improved slightly, will monitor as an outpatient with a CBC in a few days after discharge -Continue with Carafate on discharge History of candidal esophagitis -completed Diflucan at the end of April 2020 Mild hyponatremia -Sodium is 135 -Free water is going at 100 cc/h via his PEG--> this was initially started at the request of the parents -Home free water is approximately 1100 cc daily -I recommended that we decrease his free water at 100 an hour but only for 12 hours during the day-family agreeable -Resolved Chronic anemia -Hemoglobin stable on CBC this a.m. Chronic thrombocytopenia -Platelets have normalized at this time 184,000 Cerebral palsy with spastic quadriplegia -Continue home medications -Continue tube feed via PEG Physical Exam Const alert and no apparent distress HEENT normocephalic Eyes PERRL, EOMs intact bilaterally and conjunctivae normal Neck supple Neck Narrative: Trachea midline, Shiley [address] patient is c urrently attached to the ventilator Resp normal respiratory effort, no retractions and no use of accessory muscles Resp Narrative: Few scattered rhonchi Auscultation: rhonchi; Negative for crackles, rales or wheezes Cardio regular rate, regular rhythm, S1 normal heart sound, S2 normal heart sound, no murmurs and no clicks GI soft to palpation, non-tender and non-distended; Negative for hepatosplenomegaly GI Narrative: PEG in place, diverting ostomy noted with small amounts of stool and air. 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 Sensorium / Orientation: awake and alert Weight / BMI Weight Weight: 156 lb 15.506 oz Body Mass Index (BMI) 30.7 ABG / Lab / Microbiology Data Result Diagrams: 09/11/20 05:54 09/12/20 06:50 Laboratory: Laboratory Results - last 24 hr 09/11/20 12:13: POC Glucose 77 09/11/20 18:01: POC Glucose 87 09/11/20 23:56: POC Glucose 80 09/12/20 06:37: POC Glucose 107 09/12/20 06:50: Sodium 139, Potassium 3.8, Chloride 107, Carbon Dioxide 24.0, Anion Gap 8, BUN 7, Creatinine 0.26 L, Estim Creat Clear Calc 272.44, Est GFR (MDRD) Af Amer 510, Est GFR (MDRD) Non-Af 421, BUN/Creatinine Ratio 27.0 H, Glucose 110 H, Calcium 8.3 L Microbiology: Microbiology 09/08/20 11:08 Sputum, Tracheal Aspirate Gram Stain - Final 09/08/20 11:08 Sputum, Tracheal Aspirate Respiratory Culture - Final Pseudomonas aeroginosa 09/09/20 18:45 Gastric Fluid/Contents Gastric Occult Blood - Final Occult Blood Positive D/C Instructions Discharge Diet: - (Continue with tube feeds at a rate of 20 cc/h, and increase this by 5 every day until you return to his baseline feeding. If he does have elevated residuals would back down by 5 cc/h and continue to monitor.) Call your doctor if you observe: Fever of 101 or Higher, Shortness of breath, Dizziness, Swelling in the ankles, Chest pain and Increased palpitations (irregular heartbeat) Meaningful Use Info Meaningful Use Diagnoses (Choose all that apply): None applicable Discharge Plan Admission Admit Date/Time: 09/07/20 15:26 Attending Provider: Barry Young Primary Care Provider: Timmy Conn Consulting Providers: Jacek Monsalve ; Yovanny Moreira ; Valarie Kee YARD LABOR SUPERVISOR Instructions Additional Instructions / Restrictions: Patient Problems: Altered Health Status related to Hospitalization Patient Goals: *Optimal Level of Health *Keep Appointments *Medication Compliance *Remain Safe Discharge Orders/Prescriptions Prescriptions: New sucralfate 1 gram Tablet 1 g NG 1HR_ACHS 30 Days Qty: 60 RF: 0 Continued epinephrine 0.3 mg/0.3 mL auto-injector 0.3 mg IM ONCE RF: 0 simethicone 40 MG/0.6 ML bottle 40 mg GT 4X/DAY RF: 0 metoclopramide HCl 5 mg/5 mL solution 10 mg GT TID RF: 0 phenobarbital 20 MG/5 ML elixir 60 mg GT BID RF: 0 cetirizine 10 MG tablet 10 ml GT DAILY RF: 0 Lactobacillus acidophilus 1 EACH capsule 1 cap GT DAILY RF: 0 gabapentin 250 mg/5 mL (5 mL) solution 150 mg PO 1200,1800 RF: 0 lorazepam 1 MG tablet 2 mg GT Q8 PRN (Reason: Agitation) RF: 0 ferrous sulfate 15 MG/ML drops 75 mg GT DAILY RF: 0 Cough Assist 1 dose .Route .MEDSUPPLY RF: 0 oxygen concentrator 1 dose .Route .MEDSUPPLY RF: 0 ondansetron HCl 4 MG tablet 5 ml PO DAILY PRN (Reason: Nausea) RF: 0 lactose-reduced food with fibr 237 ML liquid 50 ml GT DAILY RF: 0 baclofen 5 MG/5 ML solution 20 mg GT Q6H RF: 0 doxazosin 2 mg tablet 2 mg GT DAILY Qty: 30 RF: 0 ascorbic acid (vitamin C) 500 MG/5 ML syrup 500 mg GT DAILY RF: 0 gabapentin 250 MG/5 ML solution 200 mg GT 4X/DAY RF: 0 plecanatide 3 MG tablet 3 mg GT DAILY RF: 0 magnesium hydroxide 30 ML suspension 30 ml GT DAILY PRN PRN (Reason: Constipation) RF: 0 pantoprazole 40 MG tablet 40 mg GT BID Qty: 60 RF: 0 calcium carbonate 500 mg/5 mL (1,250 mg/5 mL) suspension 500 mg PO DAILY RF: 0 Referrals / Follow Up: Jacek Monsalve MD [STAFF PHYSICIAN] - In 1 Week (Please call to schedule follow up appointment) Timmy Conn MD [Primary Care Provider] - In 1 Week (Please call to schedule follow up appointment) Disposition Disposition (needs filled in before D/C Order can be placed): Home Health Service Charges/Coding Visit Charges Inpatient E&M: 73449 Disch Hosp
== END 2020-09-12 17:09 | disposition home health service (06) | DRG 207 ==
LOC: ED 13:50 → PCU 15:42
PROVIDERS: Internal Medicine Critical Care Medicine; Admitting Provider Internal Medicine; Emergency Provider Emergency Medicine; PCP Family Medicine; Visit Provider Family Medicine
DX: T17.990A Other foreign object in respiratory tract, part unspecified in causing asphyxiation, initial encounter (principal); J96.21 Acute and chronic respiratory failure with hypoxia; G80.0 Spastic quadriplegic cerebral palsy; J96.20 Acute and chronic respiratory failure, unspecified whether with hypoxia or hypercapnia; K21.01 Gastro-esophageal reflux disease with esophagitis, with bleeding; Z99.11 Dependence on respirator [ventilator] status; E87.1 Hypo-osmolality and hyponatremia; K56.7 Ileus, unspecified; G40.909 Epilepsy, unspecified, not intractable, without status epilepticus; D50.9 Iron deficiency anemia, unspecified; X58.XXXA Exposure to other specified factors, initial encounter; Y93.9 Activity, unspecified; Y92.9 Unspecified place or not applicable; Y99.9 Unspecified external cause status; E66.9 Obesity, unspecified; Z68.31 Body mass index [BMI] 31.0-31.9, adult; Z22.39 Carrier of other specified bacterial diseases; Z93.0 Tracheostomy status; Z93.3 Colostomy status; Z93.1 Gastrostomy status; Z86.711 Personal history of pulmonary embolism; Z87.19 Personal history of other diseases of the digestive system
CPT/HCPCS: 31720; 36415; 36591; 71045; 74022; 80048; 80053; 82271; 82962; 83690; 83735; 84100; 85025; 85027; 87070; 87077; 87184; 87186; 87205; 93005; 94667; 94668; 94762; 97802; 97803; 99251; 99285; J7120; A4216; G0463; J0295; J2405

== ENCOUNTER 2020-09-22 11:36 | Emergency (ER) | payer MEDICARE, BC, MEDICAID, SELFPAY ==
[2020-09-08 12:48] VITALS: BMI 30.7
[2020-09-22] VITALS (7 sets, daily range): BP systolic 105–125; BP diastolic 72–94; PULSE 60–87; RESP 10–18; TEMP 35.4; O2SAT 95–100
--- NOTE | 2020-09-22 12:09 | EKG12_ITS ---
Test Reason : Blood Pressure : / mmHG Vent. Rate : 069 BPM Atrial Rate : 069 BPM P-R Int : 180 ms QRS Dur : 110 ms QT Int : 436 ms P-R-T Axes : 100 -08 029 degrees QTc Int : 467 ms Sinus rhythm with Premature supraventricular complexes Low voltage QRS T wave abnormality, consider anterior ischemia Abnormal ECG Confirmed by ENRIKE VARGAS, BESS ([id number]), editor department JOSEMANUEL TORRES ([id number]) on 09/26/2020 1:21:06 PM Referred By: BERNARDA Confirmed By:BESS CALVERT MD
--- NOTE | 2020-09-22 12:09 | RAD_ITS ---
EXAM: XR CHEST, 1 VIEW : 1980 CLINICAL INDICATION: dyspnea TECHNIQUE: Frontal view of the chest. This report was created using [employer] report generation technology. COMPARISON: 09/09/2020 FINDINGS: LUNGS AND PLEURAL SPACES: Unremarkable. No consolidation or edema. No pneumothorax. No effusion. HEART: Unremarkable. Cardiac silhouette not enlarged. MEDIASTINUM: Central airways and mediastinal contour are unremarkable. BONES/JOINTS: Unremarkable. SOFT TISSUES: Unremarkable. TUBES, LINES AND DEVICES: Tracheostomy tube and right-sided Port-A-Cath are in stable position. UPPER ABDOMEN: There is mild elevation the right hemidiaphragm. RAD/Chest 1 View (Portable) IMPRESSION: 1. No acute pulmonary abnormality. There has been no significant change from the reference exam. 2. Support structures in stable position. at 1337 Reported and signed by: Hugh De Santiago MD Electronically Signed: Hugh De Santiago MD at 13:36 EDT Tel , Service support ,
--- NOTE | 2020-09-22 12:10 | ED.VIS.DYS ---
HPI History of Present Illness Chief Complaint: Shortness of Breath Detail of Chief Complaint: Shortness of breath that started this morning. Informant: parent Narrative Narrative: Patient to the emergency department via EMS. Parents state that patient started to desaturate this morning with O2 sats in the 70s despite being on a vent. Patient was admitted 2 weeks ago and spent 6 days in the hospital and was believed for mucous plugging. Patient is receiving tube feeds but has not been vomiting. He has a history of aspiration pneumonia. Patient has tracheostomy and he normally breathes through a T-piece during the day but is vented at night. EMS suction patient and brought to ER. Patient has not had fevers. [facility] Medical History Cerebral palsy Chronic respiratory failure Debility Edema History of seizure disorder Iron deficiency anemia Nonrheumatic mitral valve prolapse Obesity Pulmonary embolism on left (06/14/19) Redundant colon Thrombocytopenia Tracheostomy in place Home Medications simethicone 40 mg GT 4X/DAY 11/09/13 [History Last Taken 04/25/20 06:00] phenobarbital 60 mg GT BID 02/19/17 [History Last Taken 04/24/20 21:00] Lactobacillus acidophilus 1 cap GT DAILY 02/04/18 [History Last Taken 04/24/20 09:00] cetirizine 10 ml GT DAILY 02/04/18 [History Last Taken 04/24/20 16:00] metoclopramide HCl 5 mg/5 mL oral solution 10 mg GT TID ml 09/16/18 [History Last Taken 04/24/20 21:00] lorazepam 2 mg GT Q8 PRN 10/08/18 [History Last Taken 04/24/20 22:00] Cough Assist 1 dose .ROUTE .MEDSUPPLY 12/25/18 [History Last Taken Unknown] ferrous sulfate 75 mg GT DAILY 12/25/18 [History Last Taken 04/24/20 16:00] oxygen concentrator 1 dose .ROUTE .MEDSUPPLY 12/25/18 [History Last Taken Unknown] baclofen 20 mg GT Q6H 05/09/19 [History Last Taken 04/25/20 06:00] lactose-reduced food with fibr 50 ml GT DAILY 05/09/19 [History Last Taken Unknown] ondansetron HCl 5 ml PO DAILY PRN 05/09/19 [History Last Taken Unknown] doxazosin 2 mg GT DAILY #30 tab 07/11/19 [Rx Last Taken 04/24/20 09:00] gabapentin 250 mg/5 mL (5 mL) oral solution 150 mg PO 1200,1800 ml 08/03/19 [History Last Taken Unknown] ascorbic acid (vitamin C) 500 mg GT DAILY 08/04/19 [History Last Taken Unknown] gabapentin 200 mg GT 4X/DAY 09/26/19 [History Last Taken 04/25/20 06:00] epinephrine 0.3 mg/0.3 mL injection, auto-injector 0.3 mg IM ONCE 10/24/19 [History Last Taken Unknown] magnesium hydroxide 30 ml GT DAILY PRN PRN 04/25/20 [History Last Taken 04/24/20 17:00] plecanatide 3 mg GT DAILY 04/25/20 [History Last Taken 04/24/20 09:00] pantoprazole 40 mg GT BID #60 tab 04/26/20 [Rx Last Taken Unknown] calcium carbonate 500 mg PO DAILY 07/09/20 [History Last Taken Unknown] sucralfate 1 g NG 1HR_ACHS 30 Days #60 tab 09/12/20 [Rx Last Taken Unknown] Allergy/AdvReac Type Severity Reaction Status Date / Time cisapride monohydrate Allergy Rash Verified 07/31/20 13:36 [From Propulsid] codeine AdvReac hallucinati Verified 07/31/20 13:36 ons metronidazole [From Flagyl] AdvReac Rash Verified 07/31/20 13:36 morphine AdvReac Hallucinati Verified 07/31/20 13:36 ons dust Allergy Other Uncoded 07/31/20 13:36 Family History Mother Hypertension Hepatitis C Father Hypertension Atrial fibrillation CAD (coronary artery disease) Surgical History Colostomy in place Heel cord lengthening History of colostomy History of eye surgery History of gastrostomy tube placement History of open reduction and internal fixation (ORIF) procedure History of soft tissue release Status post insertion of intrathecal baclofen pump Social History Smoking Status: Never smoker alcohol intake: never caffeine: No ROS ROS ED Constitutional Constitutional ED: Reports systems reviewed and no addt'l complaints, except as documented; Denies body ache(s), change in weight or chills Eyes Eyes: Denies acute decrease in peripheral vision, change in vision, double vision or loss of vision ENT ENT ED: Reports none; Denies ear pain, lip swelling, loss taste/smell, neck pain, otalgia or sore throat Cardiovascular Cardiovascular: Reports none; Denies abdominal pain, chest pain with activity, leg edema, lightheadedness, palpitations, rapid heart rate or syncope Respiratory/Chest Respiratory/Chest: Reports none, dyspnea and other Details: Low oxygen saturations ; Denies change in mental status, dry cough, hemoptysis, shortness of breath at rest or shortness of breath with exertion Gastrointestinal Gastrointestinal: Reports none; Denies abdominal pain, change in stool character, diarrhea, hematemesis, hematochezia, melena, rectal bleeding or vomiting Genitourinary Genitourinary ED: Reports none; Denies abdominal discomfort, anuria, dysuria, genital pain or polyuria Musculoskeletal Musculoskeletal: Reports none; Denies arthralgias, back pain, difficulty walking, extremity pain, muscle weakness or myalgias Integumentary Reports none; Denies abscess or rash Neurologic Neurologic: Reports none; Denies abnormal gait, confusion, focal weakness, frequent falls, headache(s), loss of vision, numbness, paresthesias, radicular pain, vertigo or weakness Psychiatric Psychiatric: Reports systems reviewed and no addt'l complaints, except as documented and none; Denies behavioral changes, confusion, difficulty concentrating, hallucinations, suicidal ideation, tactile hallucinations or visual hallucinations Endocrine Endocrinology: Denies none, cold intolerance, excessive sweating, fatigue or heat intolerance Hematologic/Lymphatic Hematologic/Lymphatic: Reports none; Denies anemia, easy bleeding or easy bruising Allergic/Immunologic Allergic/Immunologic ED: Denies as per HPI, none, lip swelling, mouth swelling, throat swelling, tongue swelling or hives EXAM Physical Exam Const Vital Signs: 09/22/20 11:37 09/22/20 11:42 09/22/20 12:44 Temperature 95.7 F L Temperature Source Temporal Pulse Rate 60 70 Respiratory Rate 14 14 Respiratory Effort Normal Non-Labored Respiratory Depth Normal Respiratory Pattern Normal Normal Blood Pressure 105/72 Blood Pressure Mean 83 Pulse Ox 100 97 Oxygen Delivery Method Ambu-Bag Fraction of Inspired Oxygen (FIO2) 35 09/22/20 13:52 09/22/20 14:52 09/22/20 15:14 Temperature Temperature Source Pulse Rate 71 62 72 Respiratory Rate 18 14 12 Respiratory Effort Respiratory Depth Respiratory Pattern Normal Blood Pressure 120/80 113/76 Blood Pressure Mean 93 88 Pulse Ox 97 95 96 Oxygen Delivery Method Mechanical Ventilator Mechanical Ventilator Fraction of Inspired Oxygen (FIO2) 35 Positive well nourished and well developed General Appearance ED: well developed and NAD HEENT Reports TM's clear and moist mucous membranes normocephalic and atraumatic; Negative for trauma or tenderness Tympanic Membrane ED: Yes TM's clear Eyes PERRL and EOMs intact bilaterally General Eye ED: Negative for pale conjunctiva or scleral icterus Neck no lymphadenopathy, supple and no JVD General: Negative for tenderness Chest Wall inspection of chest normal and palpation of chest normal Chest: Negative for tenderness Resp normal respiratory effort and clear to auscultation bilaterally Resp Narrative: Patient with some rhonchorous breath sounds bilaterally with some faint expiratory wheezes noted. No accessory muscle use or retractions. On ventilator in the department and he is satting 96%. Effort and Inspection: Negative for respiratory distress or pain with movement Auscultation: rhonchi and wheezes; Negative for diminished lung sounds Cardio regular rate, regular rhythm, S1 normal heart sound, S2 normal heart sound and no murmurs Peripheral Pulses: pulses 2+ throughout GI normal to inspection, nondistended, normoactive bowel sounds, soft to palpation, non-tender, non-distended and no masses Back/Spine no CVA tenderness and no thoracic nor lumbar tenderness Extremity normal to inspection General Extremety ED: Negative for edema General Extremity: Negative for edema Neuro oriented x3, CN's II-XII intact bilaterally, no sensory deficits noted and gait normal Sensorium / Orientation: awake, alert, oriented to person, oriented to place and oriented to time Motor Exam: strength 5/5 throughout and strength abnormal Psych mental status grossly normal Skin no rashes or lesions noted and no wounds MDM MDM MDM Narrative Medical decision making narrative: Patient received a DuoNeb aerosol on arrival and was suctioned by respiratory therapy. On the vent his O2 sats have been 96 to 100 percent. He looks well and is in no respiratory distress. I feel he can be discharged back to home. I suspect he may have had mucus plugging. Lab Data Attestation: I reviewed the patient's lab results. Labs: Laboratory Results - last 24 hr 09/22/20 09/22/20 09/22/20 15:10 15:10 15:10 WBC 4.6 RBC 4.16 L Hgb 11.8 L Hct 36.9 L MCV 88.7 MCH 28.4 MCHC 32.0 RDW Std Deviation 46.9 H RDW Coeff of Emilee 14.6 Plt Count 199 MPV 10.2 Immature Gran % (Auto) 0.700 Neut % (Auto) 54.7 Lymph % (Auto) 29.7 Gillespie % (Auto) 9.2 Eos % (Auto) 5.5 H Baso % (Auto) 0.2 Absolute Neuts (auto) 2.5 Absolute Lymphs (auto) 1.35 Nucleated RBC % 0 Sodium 135 L Potassium 4.3 Chloride 106 Carbon Dioxide 25.0 Anion Gap 4 L BUN 15 Creatinine 0.23 L Estim Creat Clear Calc 457.03 Est GFR (MDRD) Af Amer 573 Est GFR (MDRD) Non-Af 473 BUN/Creatinine Ratio 64.1 H Glucose 95 Lactic Acid 0.3 L Calcium 8.6 Radiography Chest X-Ray - ED: 1 View Diagnostic Testing: Radiology Impression Chest X-Ray 09/22/20 12:09 IMPRESSION: 1. No acute pulmonary abnormality. There has been no significant change from the reference exam. 2. Support structures in stable position. at 1337 Reported and signed by: Hugh De Santiago MD Electronically Signed: Hugh De Santiago MD at 13:36 EDT Tel , Service support , 1 view chest x-ray obtained interpreted by myself as no acute disease process. Radiology in agreement. EKG Initial EKG: Attestation: I personally reviewed and interpreted this EKG as follows: Comments: Sinus rhythm with ventricular rate of [address] changes. Discharge Plan Triage Chief Complaint: Shortness of Breath ED Provider: Racquel Moss Dx/Rx/DC Orders Clinical Impression: Acute dyspnea Instructions: ED Dyspnea Prescriptions: No Action epinephrine 0.3 mg/0.3 mL auto-injector 0.3 mg IM ONCE RF: 0 simethicone 40 MG/0.6 ML bottle 40 mg GT 4X/DAY RF: 0 metoclopramide HCl 5 mg/5 mL solution 10 mg GT TID RF: 0 phenobarbital 20 MG/5 ML elixir 60 mg GT BID RF: 0 cetirizine 10 MG tablet 10 ml GT DAILY RF: 0 Lactobacillus acidophilus 1 EACH capsule 1 cap GT DAILY RF: 0 gabapentin 250 mg/5 mL (5 mL) solution 150 mg PO 1200,1800 RF: 0 lorazepam 1 MG tablet 2 mg GT Q8 PRN (Reason: Agitation) RF: 0 ferrous sulfate 15 MG/ML drops 75 mg GT DAILY RF: 0 Cough Assist 1 dose .Route .MEDSUPPLY RF: 0 oxygen concentrator 1 dose .Route .MEDSUPPLY RF: 0 ondansetron HCl 4 MG tablet 5 ml PO DAILY PRN (Reason: Nausea) RF: 0 lactose-reduced food with fibr 237 ML liquid 50 ml GT DAILY RF: 0 baclofen 5 MG/5 ML solution 20 mg GT Q6H RF: 0 doxazosin 2 mg tablet 2 mg GT DAILY Qty: 30 RF: 0 ascorbic acid (vitamin C) 500 MG/5 ML syrup 500 mg GT DAILY RF: 0 gabapentin 250 MG/5 ML solution 200 mg GT 4X/DAY RF: 0 plecanatide 3 MG tablet 3 mg GT DAILY RF: 0 magnesium hydroxide 30 ML suspension 30 ml GT DAILY PRN PRN (Reason: Constipation) RF: 0 pantoprazole 40 MG tablet 40 mg GT BID Qty: 60 RF: 0 sucralfate 1 gram Tablet 1 g NG 1HR_ACHS 30 Days Qty: 60 RF: 0 calcium carbonate 500 mg/5 mL (1,250 mg/5 mL) suspension 500 mg PO DAILY RF: 0 Primary Care Provider: Timmy Conn Referrals: Jacek Monsalve MD [STAFF PHYSICIAN] - 3-5 Days Timmy Conn MD [Primary Care Provider] - Disposition Disposition: Home, Self Care
[2020-09-22] MEDS: Ipratropium/Albuterol Sulfate 3 ML AMPUL.NEB INHALATION (12:26)
[2020-09-22] MEDS: 0.9% Normal Saline 1,000 ML 150 ML IV (14:45)
[2020-09-22 15:22] LABS: Absolute Lymphocyte Count 1.35 X10^3/uL (0.83-4.51); Absolute Neutrophil Count 2.5 X10^3/uL (2.0-7.7); Basophil# 0.01 X10^3/uL; Basophil% 0.2 % (0-1); Eosinophil# 0.25 X10^3/uL; Eosinophils% 5.5 % (0-5); Hematocrit 36.9 % (40-54); Hemoglobin 11.8 g/dL (13.0-16.5); Lymphocyte # 1.35 X10^3/ul (0.83-4.51); Lymphocyte % 29.7 % (19-41); Mean Corpuscular Hgb 28.4 pg (27.0-32.0); Mean Corpuscular Volume 88.7 fL (80-94); Mean Platelet Vol. 10.2 fl (6.2-12.0); Monocyte# 0.42 X10^3/uL; Monocyte% 9.2 % (0-10); NRBC Flagged by Analyzer 0 % (0-5); Neutrophil # 2.49 X10^3/uL (2.7-7.7); Neutrophil % 54.7 % (47-70); Platelet Count 199 K/mm3 (150-450); RBC Distribution Width CV 14.6 % (11.6-14.6); RBC Distribution Width SD 46.9 fl (35.1-43.9); Red Blood Count 4.16 M/mm3 (4.6-6.2); White Blood Count 4.6 K/mm3 (4.4-11.0)
[2020-09-22 15:44] LABS: Anion Gap 4 (5-15); BUN 15 mg/dL (7-18); BUN/Creat Ratio 64.1 RATIO (10-20); Calcium,Total 8.6 mg/dL (8.5-10.1); Chloride 106 mmol/L (98-107); Creatinine, Serum 0.23 mg/dL (0.70-1.30); EST Glomerular Filtration Rate 473 mL/min (>60); Est Glom Filt Rate - Afr Amer 573 mL/min (>60); Glucose 95 mg/dL (74-106); Lactic Acid 0.3 mmol/L (0.4-1.9); Potassium 4.3 mmol/L (3.5-5.1); Sodium Level 135 mmol/L (136-145)
== END 2020-09-22 18:07 | disposition home or self-care (01) ==
PROVIDERS: Emergency Provider Emergency Medicine; PCP Family Medicine
DX: R06.00 Dyspnea, unspecified (principal); G80.9 Cerebral palsy, unspecified; J96.10 Chronic respiratory failure, unspecified whether with hypoxia or hypercapnia; G40.909 Epilepsy, unspecified, not intractable, without status epilepticus; I34.1 Nonrheumatic mitral (valve) prolapse; D50.9 Iron deficiency anemia, unspecified; E66.9 Obesity, unspecified; Z93.0 Tracheostomy status; Z93.1 Gastrostomy status; Z93.3 Colostomy status; Z79.899 Other long term (current) drug therapy; Z87.01 Personal history of pneumonia (recurrent)
CPT/HCPCS: 36415; 71045; 80048; 83605; 85025; 87040; 93005; 94002; 94640; 96360; 96361; 99251; 99285; J7030; A4216; G0463

== ENCOUNTER 2020-10-01 11:33 | Outpatient (RCR) | payer MEDICARE, BC, MEDICAID, SELFPAY ==
[2020-04-25 15:09] VITALS: BMI 30.7
[2020-10-01 12:15] LABS: Anion Gap 7 (5-15); BUN 18 mg/dL (7-18); BUN/Creat Ratio 80.7 RATIO (10-20); Calcium,Total 8.7 mg/dL (8.5-10.1); Chloride 101 mmol/L (98-107); Creatinine, Serum 0.22 mg/dL (0.70-1.30); EST Glomerular Filtration Rate 500 mL/min (>60); Est Glom Filt Rate - Afr Amer 606 mL/min (>60); Glucose 78 mg/dL (74-106); Potassium 3.9 mmol/L (3.5-5.1); Sodium Level 137 mmol/L (136-145)
== END 2020-10-22 23:59 ==
LOC: LABSPEC 11:33
PROVIDERS: PCP Family Medicine; Referring Provider Internal Medicine Cardiovascular Disease; Visit Provider Internal Medicine Cardiovascular Disease
DX: G80.0 Spastic quadriplegic cerebral palsy (principal); R60.9 Edema, unspecified; J96.21 Acute and chronic respiratory failure with hypoxia; E87.6 Hypokalemia; E87.1 Hypo-osmolality and hyponatremia
CPT/HCPCS: 80048

== ENCOUNTER 2020-10-29 09:03 | Outpatient (RCR) | payer MEDICARE, BC, MEDICAID, SELFPAY ==
[2020-10-29 09:06] LABS: Absolute Lymphocyte Count 2.55 X10^3/uL (0.83-4.51); Absolute Neutrophil Count 2.7 X10^3/uL (2.0-7.7); Basophil# 0.03 X10^3/uL; Basophil% 0.5 % (0-1); Eosinophil# 0.51 X10^3/uL; Eosinophils% 7.7 % (0-5); Hematocrit 35.3 % (40-54); Hemoglobin 11.3 g/dL (13.0-16.5); Lymphocyte # 2.55 X10^3/ul (0.83-4.51); Lymphocyte % 38.3 % (19-41); Mean Corpuscular Hgb 28.3 pg (27.0-32.0); Mean Corpuscular Volume 88.3 fL (80-94); Mean Platelet Vol. 10.2 fl (6.2-12.0); Monocyte# 0.82 X10^3/uL; Monocyte% 12.3 % (0-10); NRBC Flagged by Analyzer 0 % (0-5); Neutrophil # 2.71 X10^3/uL (2.7-7.7); Neutrophil % 40.7 % (47-70); Platelet Count 223 K/mm3 (150-450); RBC Distribution Width SD 42.4 fl (35.1-43.9); White Blood Count 6.7 K/mm3 (4.4-11.0)
[2020-10-29 09:34] LABS: Anion Gap 2 (5-15); BUN 18 mg/dL (7-18); BUN/Creat Ratio 75.9 RATIO (10-20); Calcium,Total 8.5 mg/dL (8.5-10.1); Chloride 105 mmol/L (98-107); Creatinine, Serum 0.24 mg/dL (0.70-1.30); EST Glomerular Filtration Rate 466 mL/min (>60); Est Glom Filt Rate - Afr Amer 564 mL/min (>60); Glucose 80 mg/dL (74-106); Sodium Level 138 mmol/L (136-145)
== END 2020-11-21 23:59 ==
LOC: LABSPEC 09:03
PROVIDERS: Physician Assistant Medical; PCP Family Medicine; Referring Provider Internal Medicine Cardiovascular Disease; Visit Provider Internal Medicine Cardiovascular Disease
DX: G80.0 Spastic quadriplegic cerebral palsy (principal); R60.9 Edema, unspecified; J96.21 Acute and chronic respiratory failure with hypoxia; E87.6 Hypokalemia; E87.1 Hypo-osmolality and hyponatremia
CPT/HCPCS: 80048; 85025

== ENCOUNTER → 2020-11-26 | Outpatient (CLI) | payer MEDICARE, BC, MEDICAID, SELFPAY ==
[2020-11-26 08:51] LABS: Absolute Lymphocyte Count 2.27 X10^3/uL (0.83-4.51); Basophil# 0.01 X10^3/uL; Basophil% 0.2 % (0-1); Eosinophil# 0.36 X10^3/uL; Eosinophils% 5.9 % (0-5); Hematocrit 36.6 % (40-54); Hemoglobin 11.8 g/dL (13.0-16.5); Lymphocyte # 2.27 X10^3/ul (0.83-4.51); Lymphocyte % 37.3 % (19-41); Mean Corp Hgb Conc 32.2 g/dL (32-36); Mean Corpuscular Volume 86.7 fL (80-94); Mean Platelet Vol. 10.7 fl (6.2-12.0); Monocyte# 0.47 X10^3/uL; Monocyte% 7.7 % (0-10); NRBC Flagged by Analyzer 0 % (0-5); Neutrophil # 2.97 X10^3/uL (2.7-7.7); Neutrophil % 48.7 % (47-70); Platelet Count 172 K/mm3 (150-450); RBC Distribution Width CV 13.1 % (11.6-14.6); Red Blood Count 4.22 M/mm3 (4.6-6.2); White Blood Count 6.1 K/mm3 (4.4-11.0)
[2020-11-26 09:15] LABS: Ferritin 59 ng/mL (26-388); Iron 42 ug/dL (65-175); Iron Binding Capacity,Total 226 ug/dL (250-450)
== END | disposition home or self-care (01) ==
LOC: LABSPEC 08:42
PROVIDERS: PCP Family Medicine; Referring Provider Family Medicine; Visit Provider Family Medicine
DX: D50.9 Iron deficiency anemia, unspecified (principal)
CPT/HCPCS: 82728; 83540; 83550; 85025

== ENCOUNTER → 2020-12-17 | Outpatient (CLI) | payer MEDICARE, BC, MEDICAID, SELFPAY | END | disposition home or self-care (01) | LOC: LABSPEC 12:31 | PROVIDERS: PCP Family Medicine; Referring Provider Internal Medicine Critical Care Medicine; Visit Provider Internal Medicine Critical Care Medicine | DX: J96.11 Chronic respiratory failure with hypoxia (principal); J96.12 Chronic respiratory failure with hypercapnia | CPT/HCPCS: 87070; 87077; 87186; 87205 ==

== ENCOUNTER 2020-12-30 13:17 | Outpatient (RCR) | payer MEDICARE, BC, MEDICAID, SELFPAY ==
[2020-12-24 08:59] LABS: Absolute Lymphocyte Count 2.18 X10^3/uL (0.83-4.51); Absolute Neutrophil Count 2.5 X10^3/uL (2.0-7.7); Basophil# 0.02 X10^3/uL; Basophil% 0.3 % (0-1); Eosinophil# 0.51 X10^3/uL; Eosinophils% 8.9 % (0-5); Hematocrit 33.7 % (40-54); Hemoglobin 10.7 g/dL (13.0-16.5); Lymphocyte # 2.18 X10^3/ul (0.83-4.51); Lymphocyte % 37.9 % (19-41); Mean Corp Hgb Conc 31.8 g/dL (32-36); Mean Corpuscular Hgb 27.4 pg (27.0-32.0); Mean Corpuscular Volume 86.2 fL (80-94); Mean Platelet Vol. 10.5 fl (6.2-12.0); Monocyte# 0.51 X10^3/uL; Monocyte% 8.9 % (0-10); NRBC Flagged by Analyzer 0 % (0-5); Neutrophil # 2.52 X10^3/uL (2.7-7.7); Neutrophil % 43.8 % (47-70); Platelet Count 152 K/mm3 (150-450); RBC Distribution Width CV 13.4 % (11.6-14.6); Red Blood Count 3.91 M/mm3 (4.6-6.2); White Blood Count 5.8 K/mm3 (4.4-11.0)
[2020-12-24 09:13] LABS: Anion Gap 4 (5-15); BUN 18 mg/dL (7-18); BUN/Creat Ratio 70.3 RATIO (10-20); Calcium,Total 8.3 mg/dL (8.5-10.1); Chloride 104 mmol/L (98-107); Creatinine, Serum 0.26 mg/dL (0.70-1.30); EST Glomerular Filtration Rate 426 mL/min (>60); Est Glom Filt Rate - Afr Amer 516 mL/min (>60); Glucose 88 mg/dL (74-106); Potassium 3.9 mmol/L (3.5-5.1); Sodium Level 137 mmol/L (136-145)
[2020-12-30 13:33] LABS: Hematocrit 35.5 % (40-54); Hemoglobin 11.3 g/dL (13.0-16.5); Mean Corp Hgb Conc 31.8 g/dL (32-36); Mean Corpuscular Hgb 27.4 pg (27.0-32.0); Mean Corpuscular Volume 86.2 fL (80-94); Mean Platelet Vol. 11.5 fl (6.2-12.0); Platelet Count 193 K/mm3 (150-450); RBC Distribution Width CV 13.5 % (11.6-14.6); RBC Distribution Width SD 42.3 fl (35.1-43.9); Red Blood Count 4.12 M/mm3 (4.6-6.2); White Blood Count 5.8 K/mm3 (4.4-11.0)
[2020-12-30 13:48] LABS: Anion Gap 4 (5-15); BUN 18 mg/dL (7-18); BUN/Creat Ratio 57.7 RATIO (10-20); Calcium,Total 8.6 mg/dL (8.5-10.1); Chloride 102 mmol/L (98-107); Creatinine, Serum 0.31 mg/dL (0.70-1.30); EST Glomerular Filtration Rate 339 mL/min (>60); Est Glom Filt Rate - Afr Amer 410 mL/min (>60); Glucose 79 mg/dL (74-106); Potassium 4.2 mmol/L (3.5-5.1); Sodium Level 136 mmol/L (136-145)
[2020-12-31 10:22] LABS: Thyroid Stim Hormone (TSH) 0.86 uIU/mL (0.358-3.74)
== END 2021-01-21 23:59 ==
LOC: LABSPEC 13:17
PROVIDERS: PCP Family Medicine; Referring Provider Internal Medicine Cardiovascular Disease; Visit Provider Internal Medicine Infectious Disease
DX: G80.0 Spastic quadriplegic cerebral palsy (principal); R60.9 Edema, unspecified; J96.21 Acute and chronic respiratory failure with hypoxia; E87.6 Hypokalemia; E87.1 Hypo-osmolality and hyponatremia
CPT/HCPCS: 80048; 84443; 85025; 85027

== ENCOUNTER 2021-01-11 19:33 | Observation (INO) | payer MEDICARE, BC, MEDICAID, SELFPAY ==
[2021-01-11 19:35] VITALS: BP 150/101; PULSE 116; RESP 26; TEMP 35.9; O2SAT 94; BMI 31.5
--- NOTE | 2021-01-11 20:48 | EDS_ITS ---
HPI History of Present Illness Chief Complaint: GI Bleed Informant: patient Narrative Narrative: 40-year-old male presenting with parents for GI bleed. Parents state he has been more fussy than usual over the past several days. Today they noticed blood in his colostomy bag. Patient has history of cerebral palsy and has colostomy, G-tube, tracheostomy. He recently finished course of IV antibiotics due to abnormal sputum culture. Parents deny recent fever. No history of GI bleed. He is not on anticoagulants. Recent Illness/Hospitalization: No [facility] Medical History Cerebral palsy Chronic respiratory failure Debility Edema History of seizure disorder Iron deficiency anemia Nonrheumatic mitral valve prolapse Obesity Pulmonary embolism on left (06/14/19) Redundant colon Thrombocytopenia Tracheostomy in place Home Medications phenobarbital 60 mg G-TUBE BID 02/19/17 [History Last Taken 04/24/20 21:00] Lactobacillus acidophilus 1 cap G-TUBE DAILY 02/04/18 [History Last Taken 04/24/20 09:00] metoclopramide HCl 5 mg/5 mL oral solution 5 mg FEEDING TUBE TID ml 09/16/18 [History Last Taken 04/24/20 21:00] lorazepam 2 mg G-TUBE Q8 PRN 10/08/18 [History Last Taken 04/24/20 22:00] Cough Assist 1 dose .ROUTE .MEDSUPPLY 12/25/18 [History Last Taken Unknown] ferrous sulfate 75 mg G-TUBE DAILY 12/25/18 [History Last Taken 04/24/20 16:00] oxygen concentrator 1 dose .ROUTE .MEDSUPPLY 12/25/18 [History Last Taken Unknown] ondansetron HCl 5 ml FEEDING TUBE DAILY PRN 05/09/19 [History Last Taken Unknown] doxazosin 2 mg G-TUBE DAILY #30 tab 07/11/19 [Rx Last Taken 04/24/20 09:00] ascorbic acid (vitamin C) 500 mg G-TUBE DAILY 08/04/19 [History Last Taken Unknown] gabapentin 250 mg G-TUBE 4X/DAY 09/26/19 [History Last Taken 04/25/20 06:00] epinephrine 0.3 mg/0.3 mL injection, auto-injector 0.3 mg IM ONCE PRN 10/24/19 [History Last Taken Unknown] calcium carbonate 500 mg FEEDING TUBE DAILY PRN 07/09/20 [History Last Taken Unknown] albuterol sulfate 2.5 mg INHALATION Q4H PRN ml 11/27/20 [History Last Taken Unknown] baclofen 5 mg/5 mL oral solution 20 mg G-TUBE Q6H 11/27/20 [History Last Taken Unknown] esomeprazole magnesium 40 mg granules delayed release for susp 40 mg G-TUBE BID ea 11/27/20 [History Last Taken Unknown] famotidine 20 mg tablet 20 mg FEEDING TUBE LUNCH 11/27/20 [History Last Taken Unknown] guaifenesin 200 mg/5 mL oral liquid 200 mg FEEDING TUBE Q4H PRN ml 11/27/20 [History Last Taken Unknown] lactose-reduced food with fiber 0.06 gram-1.2 kcal/mL oral liquid 1,000 ml G- TUBE DAILY 11/27/20 [History Last Taken Unknown] plecanatide 3 mg tablet 3 mg GT DAILY 11/27/20 [History Last Taken Unknown] simethicone 40 mg/0.6 mL oral drops,suspension 40 mg G-TUBE 4X/DAY 11/27/20 [History Last Taken Unknown] alum-mag hydroxide-simeth [Mylanta] 20 ml FEEDING TUBE 4X/DAY 01/11/21 [History Last Taken Unknown] nystatin 1 ml BUCCAL 4X/DAY 01/11/21 [History Last Taken Unknown] Allergy/AdvReac Type Severity Reaction Status Date / Time cisapride monohydrate Allergy Rash Verified 01/11/21 19:39 [From Propulsid] codeine AdvReac hallucinati Verified 01/11/21 19:39 ons metronidazole [From Flagyl] AdvReac Rash Verified 01/11/21 19:39 morphine AdvReac Hallucinati Verified 01/11/21 19:39 ons dust Allergy Other Uncoded 01/11/21 19:39 Family History Mother Hypertension Hepatitis C Father Hypertension Atrial fibrillation CAD (coronary artery disease) Surgical History Colostomy in place Heel cord lengthening History of colostomy History of eye surgery History of gastrostomy tube placement History of open reduction and internal fixation (ORIF) procedure History of soft tissue release Status post insertion of intrathecal baclofen pump Social History Smoking Status: Never smoker alcohol intake: never caffeine: No ROS ROS ED Review of Systems ROS Unobtainable: due to mental status Constitutional Constitutional ED: Denies fever(s) EXAM Physical Exam Const Vital Signs: 01/11/21 19:35 01/11/21 21:15 Temperature 96.7 F L Temperature Source Temporal Pulse Rate 116 H 110 H Respiratory Rate 26 H 20 H Blood Pressure 150/101 H 135/66 H Blood Pressure Mean 117 89 Pulse Ox 94 97 Oxygen Delivery Method Nasal Cannula Room Air Oxygen Flow Rate (L/min) 4 Positive well nourished and well developed General Appearance ED: well developed HEENT Reports normocephalic and head/scalp atraumatic Eyes PERRL and EOMs intact bilaterally Neck supple Neck Narrative: Tracheostomy in place General: Negative for tenderness Chest Wall inspection of chest normal Resp normal respiratory effort Auscultation: diminished lung sounds Cardio regular rhythm Rate: tachycardic GI non-tender and non-distended GI Narrative: Blood in colostomy bag Palpation: soft; Negative for guarding or rebound tenderness present no CVA tenderness Extremity normal to inspection Neuro Sensorium / Orientation: alert Psych mental status grossly normal MDM MDM MDM Narrative Medical decision making narrative: CBC shows hemoglobin 12.3. Chemistries unremarkable. Abdominal series is pending. Patient will be signed out to the oncoming physician to check results. Lab Data Attestation: I reviewed the patient's lab results. Labs: Laboratory Results - last 24 hr 01/11/21 01/11/21 21:10 21:10 WBC 8.1 RBC 4.38 L Hgb 12.3 L Hct 36.5 L MCV 83.3 MCH 28.1 MCHC 33.7 RDW Std Deviation 42.1 RDW Coeff of Emilee 13.7 Plt Count 181 MPV 9.8 Immature Gran % (Auto) 0.200 Neut % (Auto) 66.5 Lymph % (Auto) 21.8 [place] % (Auto) 8.4 Eos % (Auto) 2.7 Baso % (Auto) 0.4 Absolute Neuts (auto) 5.4 Absolute Lymphs (auto) 1.77 Nucleated RBC % 0 Sodium 136 Potassium 4.0 Chloride 103 Carbon Dioxide 29.0 Anion Gap 4 L BUN 13 Creatinine 0.31 L Estim Creat Clear Calc 228.49 Est GFR (MDRD) Af Amer 413 Est GFR (MDRD) Non-Af 342 BUN/Creatinine Ratio 41.9 H Glucose 98 Calcium 8.6 Total Bilirubin 0.20 AST 21 ALT 31 Alkaline Phosphatase 125 H Total Protein 8.8 H Albumin 3.6 Globulin 5.2 H Albumin/Globulin Ratio 0.7 L Discharge Plan Triage Chief Complaint: GI Bleed ED Provider: Deborah Bernal Dx/Rx/DC Orders Clinical Impression: GI bleed, Cerebral palsy Prescriptions: No Action epinephrine 0.3 mg/0.3 mL auto-injector 0.3 mg IM ONCE PRN (Reason: Allergic Reaction) RF: 0 albuterol sulfate 2.5 mg /3 mL (0.083 %) solution for nebulization 2.5 mg inhalation Q4H PRN (Reason: Sob &/Or Wheezing) RF: 0 guaifenesin 200 mg/5 mL liquid 200 mg feeding tube Q4H PRN (Reason: Cough) RF: 0 esomeprazole magnesium [address] for susp in packet 40 mg G-tube BID RF: 0 famotidine [Pepcid] 20 mg tablet 20 mg feeding tube LUNCH RF: 0 simethicone 40 mg/0.6 mL drops,suspension 40 mg G-tube 4X/DAY RF: 0 metoclopramide HCl 5 mg/5 mL solution 5 mg feeding tube TID RF: 0 phenobarbital 20 MG/5 ML elixir 60 mg G-tube BID RF: 0 Lactobacillus acidophilus 1 EACH capsule 1 cap G-tube DAILY RF: 0 lorazepam 1 MG tablet 2 mg G-tube Q8 PRN (Reason: Agitation) RF: 0 ferrous sulfate 15 MG/ML drops 75 mg G-tube DAILY RF: 0 Cough Assist 1 dose .Route .MEDSUPPLY RF: 0 oxygen concentrator 1 dose .Route .MEDSUPPLY RF: 0 ondansetron HCl 4 MG tablet 5 ml feeding tube DAILY PRN (Reason: Nausea) RF: 0 baclofen 5 mg/5 mL solution 20 mg G-tube Q6H RF: 0 lactose-reduced food with fibr 0.06 gram-1.2 kcal/mL liquid 1,000 ml G-tube DAILY RF: 0 doxazosin 2 mg tablet 2 mg G-tube DAILY Qty: 30 RF: 0 ascorbic acid (vitamin C) 500 MG/5 ML syrup 500 mg G-tube DAILY RF: 0 gabapentin 250 MG/5 ML solution 250 mg G-tube 4X/DAY RF: 0 plecanatide 3 mg tablet 3 mg GT DAILY RF: 0 nystatin 100,000 unit/mL Suspension 1 ml BUCCAL 4X/DAY RF: 0 alum-mag hydroxide-simeth [Mylanta] 200-200-20 mg/5 mL Suspension 20 ml feeding tube 4X/DAY RF: 0 calcium carbonate 500 mg/5 mL (1,250 mg/5 mL) suspension 500 mg feeding tube DAILY PRN (Reason: health mainten) RF: 0 Primary Care Provider: Timmy Conn Referrals: Timmy Conn MD [Primary Care Provider] -
[2021-01-11 21:15] VITALS: BP 135/66; PULSE 110; RESP 20; O2SAT 97
[2021-01-11 21:19] LABS: Absolute Lymphocyte Count 1.77 X10^3/uL (0.83-4.51); Absolute Neutrophil Count 5.4 X10^3/uL (2.0-7.7); Basophil# 0.03 X10^3/uL; Basophil% 0.4 % (0-1); Eosinophil# 0.22 X10^3/uL; Eosinophils% 2.7 % (0-5); Hematocrit 36.5 % (40-54); Hemoglobin 12.3 g/dL (13.0-16.5); Lymphocyte # 1.77 X10^3/ul (0.83-4.51); Lymphocyte % 21.8 % (19-41); Mean Corp Hgb Conc 33.7 g/dL (32-36); Mean Corpuscular Hgb 28.1 pg (27.0-32.0); Mean Corpuscular Volume 83.3 fL (80-94); Mean Platelet Vol. 9.8 fl (6.2-12.0); Monocyte# 0.68 X10^3/uL; Monocyte% 8.4 % (0-10); NRBC Flagged by Analyzer 0 % (0-5); Neutrophil % 66.5 % (47-70); Platelet Count 181 K/mm3 (150-450); RBC Distribution Width CV 13.7 % (11.6-14.6); RBC Distribution Width SD 42.1 fl (35.1-43.9); Red Blood Count 4.38 M/mm3 (4.6-6.2); White Blood Count 8.1 K/mm3 (4.4-11.0)
[2021-01-11] MEDS: fentaNYL 100 MCG/2 ML Ampul 25 MCG IV (21:34)
[2021-01-11 21:38] LABS: ALB/GLOB Ratio 0.7 RATIO (0.9-2.4); AST(SGOT) 21 U/L (15-37); Alanine Aminotransfer ALT/SGPT 31 U/L (16-61); Albumin, Serum 3.6 g/dL (3.2-5.0); Alkaline Phosphatase 125 U/L (45-117); Anion Gap 4 (5-15); BUN 13 mg/dL (7-18); BUN/Creat Ratio 41.9 RATIO (10-20); Calcium,Total 8.6 mg/dL (8.5-10.1); Chloride 103 mmol/L (98-107); Creatinine, Serum 0.31 mg/dL (0.70-1.30); EST Glomerular Filtration Rate 342 mL/min (>60); Est Glom Filt Rate - Afr Amer 413 mL/min (>60); Estimated Creatinine Clearance 228.49 ml/min; Globulin 5.2 g/dL (2.2-4.2); Glucose 98 mg/dL (74-106); Protein, Total 8.8 g/dL (6.4-8.2); Sodium Level 136 mmol/L (136-145)
--- NOTE | 2021-01-11 21:59 | RAD_ITS ---
INDICATION: abd pain EXAMINATION/TECHNIQUE: X-RAY - XR Abdomen Series W/ Chest 1 View COMPARISON: None FINDINGS: --Chest: LINES/DEVICES: Tracheostomy tube in place. Right-sided chest port. LUNGS: Poor inspiratory effort. No consolidation, edema or effusion. No pneumothorax. MEDIASTINUM AND CARDIOVASCULAR STRUCTURES: Cardiac silhouette not enlarged. Central airways and mediastinal contour are unremarkable. BONES AND SOFT TISSUES: No acute findings. --Abdomen: BOWEL GAS PATTERN: Non-obstructive. No bowel or stomach distention. FREE AIR: None visualized. ORGANOMEGALY: Not seen. CALCIFICATIONS: No abnormal calcifications observed. BONES AND SOFT TISSUES: No acute findings. RAD/Acute Abdomen Inc Chest IMPRESSION: Non-obstructive bowel gas pattern. Low lung volumes. Electronically Signed: Dale Cervantes MD at 23:18 EST Tel , Service support ,
[2021-01-11 22:30] VITALS: BP 132/83; PULSE 100; RESP 16; O2SAT 98
--- NOTE | 2021-01-11 22:30 | CT_ITS ---
HISTORY: abdominal pain EXAMINATION: CT Abdomen And Pelvis W/ Contrast Injection TECHNIQUE: Helically acquired images were obtained of the abdomen and pelvis following IV contrast. A radiation dose optimization technique was used for this scan. IV Contrast dosage and agent: 100mL [id number]-370 Oral contrast: None. COMPARISON: There are numerous comparison CT abdomen and pelvis reports available but facility CT department states they're unable to send comparison imaging at this time. FINDINGS: LOWER CHEST: Mild scarring and atelectatic changes. Right Mediport catheter tip at right atrium. Heart size within normal limits. LIVER: No concerning lesion. GALLBLADDER AND BILIARY TREE: Partially contracted gallbladder. No significant biliary ductal dilation. KIDNEYS AND URETERS: Normal renal size. No concerning lesion. 11 mm low-attenuation cyst at lower pole left kidney, requiring no additional follow-up. There is no perinephric inflammation or hydronephrosis. ADRENAL GLANDS: Non-enlarged. SPLEEN: Normal size without discrete mass. PANCREAS: No discrete mass or peripancreatic inflammation. BOWEL: PEG tube in place. Normal appendix within right lower quadrant. No bowel obstruction. Previous distal colectomy with left lower quadrant colostomy. Parastomal hernia contains fat and a few loops of small bowel. Distended blind ending rectal pouch again noted containing heterogeneous attenuation fluid/debris and mild mucosal wall thickening. No perirectal abscess. LYMPH NODES: Borderline-enlarged midline lower abdominal mesenteric lymph node measures 9.5 mm short axis diameter. No bulky adenopathy. PERITONEUM: No free air or significant free fluid. No other fluid collection. VESSELS: Major vessels are normal caliber and unremarkable. URINARY BLADDER: Empty urinary bladder. REPRODUCTIVE ORGANS: No pelvic masses. ABDOMINAL WALL: Right lower abdominal wall scarring with retained sutures. Small umbilical fat hernia and right larger than left bilateral inguinal fat hernias. Left lower abdominal parastomal hernia again noted. BONES: Mild scoliotic curvature spine and bilateral dysplastic hips again noted. CT/Abdomen/Pelvis W IV Cont ONLY IMPRESSION: 1. No significant interval change compared with previous reports. 2. Remote distal colectomy with chronic distention of rectal pouch and mild rectal wall thickening. Follow-up as clinically warranted. 3. Other chronic and nonurgent findings within body of report. Individualized dose optimization techniques were used for this CT. at 0036 Reported and signed by: Camacho Dillon MD Electronically Signed: Camacho Dillon MD at 0:35 EST Tel , Service support ,
[2021-01-11 22:38] LABS: Bacteria 0 SEEN /hpf (None Seen); Color, Urine Yellow (Yellow); Glucose, Dipstick Normal (Normal); Ketone-Dipstick Negative (Negative); Leukocyte Esterase-Dipstick Negative /ul (Negative); Mucous, Urine 0 SEEN /hpf (<or=2+); Nitrite-Dipstick Negative (Negative); Occult Blood-Urine Negative /ul (Negative); Protein-Dipstick Negative (Negative); Red Blood Cells-Urine 0 SEEN /hpf (0-5); Urine Bilirubin Dipstick Negative (Negative); Urine Clarity Clear (Clear); Urine Urobilinogen Normal (Normal); White Blood Cells 0 SEEN /hpf (0-5)
[2021-01-11 22:45] LABS: Squamous Epithelial Cells - UA 0-5 SEEN /hpf (0-5)
[2021-01-11 23:00] VITALS: BP 116/96; PULSE 111; RESP 16; O2SAT 97
[2021-01-12] VITALS (15 sets, daily range): BP systolic 94–142; BP diastolic 55–104; PULSE 70–120; RESP 12–20; TEMP 36.1–37.4; O2SAT 93–97; BMI 29.9
--- NOTE | 2021-01-12 | PCM.HP.STD ---
HPI - General General Date of Service: 01/12/21 Chief Complaint: Dark blood in patient ostomy. HPI Narrative The patient is a 40 y/o M w/ PMHx: Chronic anemia, Chronic Hypoxic and Hypercarbic Respiratory Failure on Chronic Ventilation following w/ Dr. Monsalve, Cerebral Palsy with quadriplegia w/ hx baclofen pump, colostomy, chronic catheter, frequent difficulties with aspiration, G-J tube in place, Seizure disorder, Hx PE following prolonged admission on lovenox therapy with ongoing thrombocytopenia following with Hematology who presents to the [facility] ED on 01/12/21 with history per family that patient has been more fussy, grimacing with intermittent tachycardia over the last several days than his usual baseline with onset on day of presentation dark red blood in his colostomy bag with recent completion of IV antibiotic course for pseudomonal tracheobronchitis with no recent fevers or chills. Patient did have history prior of PE but has been off anticoagulant therapy. Work-up in the ED included T 96.7, heart rate 116, BP 150/101 initially with most recent repeat 135/66, respiratory rate 20-26, 94% on patient's trach collar supplementation, CBC with WBC 8.1, hemoglobin 12.3, platelet 181 without marked shift, CMP with BUN/creatinine 13/0.31, alk phos 125 otherwise not marked appearing, rapid Covid antigen negative, urinalysis unremarkable, acute abdominal series with a nonobstructive bowel gas pattern with low lung volumes, CT abdomen and pelvis pending upon evaluation. Discussed case with Dr. Wilson who is familiar with the patient and she will evaluate him. [facility] Medical History Cerebral palsy Chronic respiratory failure Debility Edema History of seizure disorder Iron deficiency anemia Nonrheumatic mitral valve prolapse Obesity Pulmonary embolism on left (06/14/19) Redundant colon Thrombocytopenia Tracheostomy in place Home Medications phenobarbital 60 mg G-TUBE BID 02/19/17 [History Last Taken 04/24/20 21:00] Lactobacillus acidophilus 1 cap G-TUBE DAILY 02/04/18 [History Last Taken 04/24/20 09:00] metoclopramide HCl 5 mg/5 mL oral solution 5 mg FEEDING TUBE TID ml 09/16/18 [History Last Taken 04/24/20 21:00] lorazepam 2 mg G-TUBE Q8 PRN 10/08/18 [History Last Taken 04/24/20 22:00] Cough Assist 1 dose .ROUTE .MEDSUPPLY 12/25/18 [History Last Taken Unknown] ferrous sulfate 75 mg G-TUBE DAILY 12/25/18 [History Last Taken 04/24/20 16:00] oxygen concentrator 1 dose .ROUTE .MEDSUPPLY 12/25/18 [History Last Taken Unknown] ondansetron HCl 5 ml FEEDING TUBE DAILY PRN 05/09/19 [History Last Taken Unknown] doxazosin 2 mg G-TUBE DAILY #30 tab 07/11/19 [Rx Last Taken 04/24/20 09:00] ascorbic acid (vitamin C) 500 mg G-TUBE DAILY 08/04/19 [History Last Taken Unknown] gabapentin 250 mg G-TUBE 4X/DAY 09/26/19 [History Last Taken 04/25/20 06:00] epinephrine 0.3 mg/0.3 mL injection, auto-injector 0.3 mg IM ONCE PRN 10/24/19 [History Last Taken Unknown] calcium carbonate 500 mg FEEDING TUBE DAILY PRN 07/09/20 [History Last Taken Unknown] albuterol sulfate 2.5 mg INHALATION Q4H PRN ml 11/27/20 [History Last Taken Unknown] baclofen 5 mg/5 mL oral solution 20 mg G-TUBE Q6H 11/27/20 [History Last Taken Unknown] esomeprazole magnesium 40 mg granules delayed release for susp 40 mg G-TUBE BID ea 11/27/20 [History Last Taken Unknown] famotidine 20 mg tablet 20 mg FEEDING TUBE LUNCH 11/27/20 [History Last Taken Unknown] guaifenesin 200 mg/5 mL oral liquid 200 mg FEEDING TUBE Q4H PRN ml 11/27/20 [History Last Taken Unknown] lactose-reduced food with fiber 0.06 gram-1.2 kcal/mL oral liquid 1,000 ml G-TUBE DAILY 11/27/20 [History Last Taken Unknown] plecanatide 3 mg tablet 3 mg GT DAILY 11/27/20 [History Last Taken Unknown] simethicone 40 mg/0.6 mL oral drops,suspension 40 mg G-TUBE 4X/DAY 11/27/20 [History Last Taken Unknown] alum-mag hydroxide-simeth [Mylanta] 20 ml FEEDING TUBE 4X/DAY 01/11/21 [History Last Taken Unknown] nystatin 1 ml BUCCAL 4X/DAY 01/11/21 [History Last Taken Unknown] Allergy/AdvReac Type Severity Reaction Status Date / Time cisapride monohydrate Allergy Rash Verified 01/11/21 19:39 [From Propulsid] codeine AdvReac hallucinati Verified 01/11/21 19:39 ons metronidazole [From Flagyl] AdvReac Rash Verified 01/11/21 19:39 morphine AdvReac Hallucinati Verified 01/11/21 19:39 ons dust Allergy Other Uncoded 01/11/21 19:39 Family History Mother Hypertension Hepatitis C Father Hypertension Atrial fibrillation CAD (coronary artery disease) Surgical History Colostomy in place Heel cord lengthening History of colostomy History of eye surgery History of gastrostomy tube placement History of open reduction and internal fixation (ORIF) procedure History of soft tissue release Status post insertion of intrathecal baclofen pump Social History (Updated 01/12/21 @ 00:[address] Tania Randle MD) household members: family Smoking Status: Never smoker alcohol intake: never substance use type: does not use caffeine: No ROS Review of Systems ROS Unobtainable: due to mental condition Vital Signs Vital Signs Vital Signs: 01/11/21 19:35 01/11/21 21:15 01/11/21 22:30 Temperature 96.7 F L Temperature Source Temporal Pulse Rate 116 H 110 H 100 Respiratory Rate 26 H 20 H 16 Blood Pressure 150/101 H 135/66 H 132/83 H Blood Pressure Mean 117 89 99 Pulse Ox 94 97 98 Oxygen Delivery Method Nasal Cannula Room Air Room Air Oxygen Flow Rate (L/min) 4 Weight Weight: 161 lb 9.581 oz Body Mass Index (BMI) 31.5 Physical Exam Narrative Physical Examination: General: awake, alert, nonverbal, seated upright in the ED bed, no obvious distress, moving to stimuli, interactive. Skin: normal color, turgor, no icterus, cyanosis except. HEENT: AT/NC, EOMI, PERRLA, moderately dry MM with protruding tongue which is chronic, mild thrush present, no carotid bruits or JVD noted, trach in place. Lungs: Diminished breath sounds, > bases, no obvious distress, mildly increased RR, poor effort, no obvious discharge around trach insertion, no rales, ronchi or wheezing. Heart: Mildly tachycardic with regular rhythm; no gallop, rub audible. Abdomen: soft, obese, no obvious TTP, chronically distended similar to prior baseline, ostomy output with dark appearing blood, hyperactive distant BS, no HSM. Extremities: no cyanosis, chronic BL LE pedal and hand mild edema, non-pitting, quadriplegic status. Neurological: Patient awake, alert, interactive, moves to stimuli, nonverbal, unable to answer any orientation questions, severe MRDD with cerebral palsy with quadriplegia, no distress apparent; cognitive function baseline intact per family; pupils equally reactive to light and accomodation; cranial nerves difficult to assess given MRDD quadriplegic status, strength severely globally decreased. Psychiatric: affect appears mildly more fussy per family report, appears similar to discharge baseline, no acute evidence of depressive or anxiety feeling. Results Lab / Micro Data Result Diagrams: 01/11/21 21:10 01/11/21 21:10 Labs: Laboratory Results - last 24 hr 01/11/21 21:10: WBC 8.1, RBC 4.38 L, Hgb 12.3 L, Hct 36.5 L, MCV 83.3, MCH 28.1, MCHC 33.7, RDW Std Deviation 42.1, RDW Coeff of Emilee 13.7, Plt Count 181, MPV 9.8, Immature Gran % (Auto) 0.200, Neut % (Auto) 66.5, Lymph % (Auto) 21.8, [place] % (Auto) 8.4, Eos % (Auto) 2.7, Baso % (Auto) 0.4, Absolute Neuts (auto) 5.4, Absolute Lymphs (auto) 1.77, Nucleated RBC % 0 01/11/21 21:10: Sodium 136, Potassium 4.0, Chloride 103, Carbon Dioxide 29.0, Anion Gap 4 L, BUN 13, Creatinine 0.31 L, Estim Creat Clear Calc 228.49, Est GFR (MDRD) Af Amer 413, Est GFR (MDRD) Non-Af 342, BUN/Creatinine Ratio 41.9 H, Glucose 98, Calcium 8.6, Total Bilirubin 0.20, AST 21, ALT 31, Alkaline Phosphatase 125 H, Total Protein 8.8 H, Albumin 3.6, Globulin 5.2 H, Albumin/Globulin Ratio 0.7 L 01/11/21 22:20: Urine Color Yellow, Urine Clarity Clear, Urine pH 8.0, Ur Specific [place] 1.010, Urine Protein Negative, Urine Glucose (UA) Normal, Urine Ketones Negative, Urine Occult Blood Negative, Urine Nitrite Negative, Urine Bilirubin Negative, Urine Urobilinogen Normal, Ur Leukocyte Esterase Negative, Urine RBC 0 SEEN, Urine WBC 0 SEEN, Ur Squamous Epith Cells 0-5 SEEN, Urine Bacteria 0 SEEN, Urine Mucus 0 SEEN Micro: Microbiology 01/11/21 22:20 Interface Orders Group A Streptococcus Rapid Screen - Preliminary 01/11/21 21:12 Nasal Secretion SARS-CoV-2 Antigen (Rapid) - Final Radiology Impression Acute Abdomen Series 01/11/21 21:59 IMPRESSION: Non-obstructive bowel gas pattern. Low lung volumes. Electronically Signed: Dale Cervantes MD at 23:18 EST Tel , Service support , Assessment & Plan Assessment/Plan (1) GI bleed: QUALIFIERS: GI bleed type/associated pathology: unspecified gastrointestinal hemorrhage type Qualified Code(s): K92.2 - Gastrointestinal hemorrhage, unspecified PLAN: The patient is a 40 y/o M w/ PMHx: Chronic anemia, Chronic Hypoxic and Hypercarbic Respiratory Failure on Chronic Ventilation following w/ Dr. Monsalve, Cerebral Palsy with quadriplegia w/ hx baclofen pump, colostomy, chronic catheter, frequent difficulties with aspiration, G-J tube in place, Seizure disorder, Hx PE who presents to the [facility] ED on 01/12/21 with history per family that patient has been more fussy, grimacing and intermittently tachycardic over the last several days w/ onset evening of presentation dark red blood in his colostomy bag. 1. Acute GI Bleed w/ as noted #3 chronic normocytic anemia with stable hemoglobin compared to recent baseline: CT A/P results pending upon evaluation. Will admit to PCU, maintain on IVFs, obtain serial H+H q 6 hours, obtain T+S w/ cross for PRBC administration if appropriate, maintain on IV PPI, maintain n.p.o. status with temporary hold on tube feeds, discussed case with general surgeon, Dr. Wilson who is familiar with patient and will evaluate him. 2. Recent concern for pseudomonal tracheobronchitis: Patient with recent follow-up with pulmonary medicine 12/16/2020 with concern for increased secretions potentially secondary to infection at that time, sputum culture was obtained and significant for 3+ Pseudomonas resistant to Cipro, imipenem and Levaquin with sensitivity to amikacin, cefepime, gentamicin and tobramycin. 3. Chronic normocytic anemia, Fe deficiency anemia: Admission Hgb 12.3, baseline appears 10-11 primarily, stable continue Fe supplementation. 4. 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 5. Seizure disorder: We will continue home phenobarbital, gabapentin. 6. GERD: We will maintain on IV PPI regimen. 7. History of pulmonary embolism: Patient had previously been on oral anticoagulant therapy but had significant issues with thrombocytopenia therefore was transitioned and completed Lovenox therapy. 8. DVT prophylaxis: SCDs, continue therapeutic Lovenox. 10. CODE status: Patient parents present, remains Full Code. Charges/Coding Visit Charges OBSV E&M: 34384 Initial observation care L3
[2021-01-12] MEDS: fentaNYL 100 MCG/2 ML Ampul 25 MCG IV (01:12)
[2021-01-12] MEDS: Metoclopramide 10 MG/10 ML UDC 5 MG GT ×4 (01:39→22:02)
[2021-01-12] MEDS: Baclofen 10 MG Tablet 5 MG GT ×4 (01:39→17:19)
[2021-01-12] MEDS: Phenobarbital 32.4 MG Tablet 60 MG GT (01:43)
[2021-01-12] MEDS: Mag Hydrox/Al Hydrox/Simeth 30 ML UDC 20 ML GT (01:44)
[2021-01-12] MEDS: Gabapentin 600 MG Tablet PO (01:55)
[2021-01-12] MEDS: 0.9% Normal Saline 1,000 ML 100 ML IV ×3 (03:08→23:20)
--- NOTE | 2021-01-12 03:43 | PCS.PANDOC ---
PANDEMIC DOCUMENTATION INITIATED: Date: 10/07/2020 Time: 190
[2021-01-12 06:07] LABS: Absolute Lymphocyte Count 1.98 X10^3/uL (0.83-4.51); Basophil# 0.02 X10^3/uL; Basophil% 0.3 % (0-1); Eosinophil# 0.27 X10^3/uL; Eosinophils% 4.7 % (0-5); Hematocrit 33.2 % (40-54); Hemoglobin 10.7 g/dL (13.0-16.5); Lymphocyte # 1.98 X10^3/ul (0.83-4.51); Lymphocyte % 34.3 % (19-41); Mean Corp Hgb Conc 32.2 g/dL (32-36); Mean Corpuscular Hgb 27.4 pg (27.0-32.0); Mean Corpuscular Volume 85.1 fL (80-94); Mean Platelet Vol. 10.2 fl (6.2-12.0); Monocyte# 0.55 X10^3/uL; Monocyte% 9.5 % (0-10); NRBC Flagged by Analyzer 0 % (0-5); Neutrophil # 2.95 X10^3/uL (2.7-7.7); Platelet Count 157 K/mm3 (150-450); RBC Distribution Width CV 13.9 % (11.6-14.6); White Blood Count 5.8 K/mm3 (4.4-11.0)
[2021-01-12 06:38] LABS: ALB/GLOB Ratio 0.6 RATIO (0.9-2.4); AST(SGOT) 15 U/L (15-37); Alanine Aminotransfer ALT/SGPT 29 U/L (16-61); Albumin, Serum 2.9 g/dL (3.2-5.0); Alkaline Phosphatase 104 U/L (45-117); Anion Gap 6 (5-15); BUN 11 mg/dL (7-18); BUN/Creat Ratio 50.7 RATIO (10-20); Calcium,Total 8.2 mg/dL (8.5-10.1); Chloride 106 mmol/L (98-107); Creatinine, Serum 0.22 mg/dL (0.70-1.30); EST Glomerular Filtration Rate 516 mL/min (>60); Est Glom Filt Rate - Afr Amer 624 mL/min (>60); Estimated Creatinine Clearance 321.97 ml/min; Globulin 4.6 g/dL (2.2-4.2); Glucose 90 mg/dL (74-106); Potassium 3.5 mmol/L (3.5-5.1); Protein, Total 7.5 g/dL (6.4-8.2); Sodium Level 138 mmol/L (136-145)
--- NOTE | 2021-01-12 08:19 | CON.PCM.SX_ITS ---
Assessment & Plan Assessment/Plan (1) GI bleed: QUALIFIERS: GI bleed type/associated pathology: unspecified gastrointestinal hemorrhage type Qualified Code(s): K92.2 - Gastrointestinal hemorrhage, unspecified PLAN: Did change the ostomy with patient's mom. The distal mucosa appears to be a little irritated as if it could have been bleeding this may be due to the ostomy appliance being a little too tight as when patient coughed the more proximal bowel appeared normal. She will plan to make the ostomy appliance a little bit larger in the future as she was been having issues with leakage previously. Currently no blood per ostomy. Did discuss with patient's mom that we could do a colonoscopy but she did not want have to come to that we did not need to. We will try to do tube feeds today and continue to monitor if no further bleeding will defer colonoscopy at patient's last colonoscopy was December 2019 at [facility]. Zabrina Wilson M.D. Pager: [phone] [facility] [address] [place] [address], [facility], [address] [place] [address] Office: [phone] HPI Consult Data Date of Consult: 01/12/21 HPI Narrative HPI Narrative: DALE MICHAEL, is a 40 M who presents presents to the ER with his mom due to blood per colostomy, patient is well-known to ma history of cerebral palsy, chronic respiratory failure with trach, Fracisco button, colostomy. Mom states yesterday noticed red blood per the colostomy. Mom denie s any drainage or black or red blood from Fr[place]isco tube. Patient's hemoglobin is 10.7 from 12.3 seems like he is normally running around 11 denies previous checks. Currently patient has normal-looking stool in his ostomy. Patient previously had an EGD in April 2020 which showed esophagitis/[place], patient previously also had an EGD and colonoscopy at [facility] in December 2019. [facility] Medical History Cerebral palsy Chronic respiratory failure Debility Edema History of seizure disorder Iron deficiency anemia Nonrheumatic mitral valve prolapse Obesity Pulmonary embolism on left (06/14/19) Redundant colon Thrombocytopenia Tracheostomy in place Home Medications phenobarbital 60 mg G-TUBE BID 02/19/17 [History Last Taken 04/24/20 21:00] Lactobacillus acidophilus 1 cap G-TUBE DAILY 02/04/18 [History Last Taken 04/24/20 09:00] metoclopramide HCl 5 mg/5 mL oral solution 5 mg FEEDING TUBE TID ml 09/16/18 [History Last Taken 04/24/20 21:00] lorazepam 2 mg G-TUBE Q8 PRN 10/08/18 [History Last Taken 04/24/20 22:00] Cough Assist 1 dose .ROUTE .MEDSUPPLY 12/25/18 [History Last Taken Unknown] ferrous sulfate 75 mg G-TUBE DAILY 12/25/18 [History Last Taken 04/24/20 16:00] oxygen concentrator 1 dose .ROUTE .MEDSUPPLY 12/25/18 [History Last Taken Unknown] ondansetron HCl 5 ml FEEDING TUBE DAILY PRN 05/09/19 [History Last Taken U nknown] doxazosin 2 mg G-TUBE DAILY #30 tab 07/11/19 [Rx Last Taken 04/24/20 09:00] ascorbic acid (vitamin C) 500 mg G-TUBE DAILY 08/04/19 [History Last Taken Unknown] gabapentin 250 mg G-TUBE 4X/DAY 09/26/19 [History Last Taken 04/25/20 06:00] epinephrine 0.3 mg/0.3 mL injection, auto-injector 0.3 mg IM ONCE PRN 10/24/19 [History Last Taken Unknown] calcium carbonate 500 mg FEEDING TUBE DAILY PRN 07/09/20 [History Last Taken Unknown] albuterol sulfate 2.5 mg INHALATION Q4H PRN ml 11/27/20 [History Last Taken Unknown] baclofen 5 mg/5 mL oral solution 20 mg G-TUBE Q6H 11/27/20 [History Last Taken Unknown] esomeprazole magnesium 40 mg granules delayed release for susp 40 mg G-TUBE BID ea 11/27/20 [History Last Taken Unknown] famotidine 20 mg tablet 20 mg FEEDING TUBE LUNCH 11/27/20 [History Last Taken Unknown] guaifenesin 200 mg/5 mL oral liquid 200 mg FEEDING TUBE Q4H PRN ml 11/27/20 [ History Last Taken Unknown] lactose-reduced food with fiber 0.06 gram-1.2 kcal/mL oral liquid 1,000 ml G- TUBE DAILY 11/27/20 [History Last Taken Unknown] plecanatide 3 mg tablet 3 mg GT DAILY 11/27/20 [History Last Taken Unknown] simethicone 40 mg/0.6 mL oral drops,suspension 40 mg G-TUBE 4X/DAY 11/27/20 [History Last Taken Unknown] alum-mag hydroxide-simeth [Mylanta] 20 ml FEEDING TUBE 4X/DAY 01/11/21 [History Last Taken Unknown] nystatin 1 ml BUCCAL 4X/DAY 01/11/21 [History Last Taken Unknown] Allergy/AdvReac Type Severity Reaction Status Date / Time cisapride monohydrate Allergy Rash Verified 01/11/21 19:39 [From Propulsid] codeine AdvReac hallucinati Verified 01/11/21 19:39 ons metronidazole [From Flagyl] AdvReac Rash Verified 01/11/21 19:39 morphine AdvReac Hallucinati Verified 01/11/21 19:39 ons dust Allergy Other Uncoded 01/11/21 19:39 Family History (Updated 01/12/21 @ 02:46 by Hallie Aranda) Mother Hepatitis C Hypertension Father CAD (coronary artery disease) Atrial fibrillation Hypertension H/O heart artery stent Surgical History Colostomy in place Heel cord lengthening History of colostomy History of eye surgery History of gastrostomy tube placement History of open reduction and internal fixation (ORIF) procedure History of soft tissue release Status post insertion of intrathecal baclofen pump Social History (Updated 01/12/21 @ 02:47 by Hallie Aranda) household members: family housing: house current occupational status: disabled Smoking Status: Never smoker alcohol intake: never substance use type: does not use caffeine: No ROS Review of Systems ROS Unobtainable: due to mental status Physical Exam Const alert Constitutional Narrative: Nonverbal HEENT normocephalic and head/scalp atraumatic Resp Resp Narrative: Trach in place normal respiratory effort Cardio regular rate GI soft to palpation; Negative for non-distended GI Narrative: Colostomy left lower quadrant?distal mucosa appears mildly irritated possible source of bleeding, more proximal mucosa appears normal. Fracisco button in place Palpation: Negative for guarding Extremity Extremity Narrative: Chronic contractures from cerebral palsy Neuro Neuro Narrative: Baseline per mom Psych Psych Narrative: Baseline per mom Lab / Micro Data Result Diagrams: 01/12/21 05:40 01/12/21 05:40 Labs: Laboratory Results - last 24 hr 01/11/21 21:10: WBC 8.1, RBC 4.38 L, Hgb 12.3 L, Hct 36.5 L, MCV 83.3, MCH 28.1, MCHC 33.7, RDW Std Deviation 42.1, RDW Coeff of [place] 13.7, Plt Count 181, MPV 9.8, Immature Gran % (Auto) 0.200, Neut % (Auto) 66.5, Lymph % (Auto) 21.8, [place] % (Auto) 8.4, Eos % (Auto) 2.7, Baso % (Auto) 0.4, Absolute Neuts (auto) 5.4, Absolute Lymphs (auto) 1.77, Nucleated RBC % 0 01/11/21 21:10: Sodium 136, Potassium 4.0, Chloride 103, Carbon Dioxide 29.0, Anion Gap 4 L, BUN 13, Creatinine 0.31 L, Estim Creat Clear Calc 228.49, Est GFR (MDRD) Af Amer 413, Est GFR (MDRD) Non-Af 342, BUN/Creatinine Ratio 41.9 H, Glucose 98, Calcium 8.6, Total Bilirubin 0.20, AST 21, ALT 31, Alkaline Phosphatase 125 H, Total Protein 8.8 H, Albumin 3.6, Globulin 5.2 H, Albumin/Globulin Ratio 0.7 L 01/11/21 22:20: Urine Color Yellow, Urine Clarity Clear, Urine pH 8.0, Ur Specific [place] 1.010, Urine Protein Negative, Urine Glucose (UA) Normal, Urine Ketones Negative, Urine Occult Blood Negative, Urine Nitrite Negative, Urine Bilirubin Negative, Urine Urobilinogen Normal, Ur Leukocyte Esterase Negative, Urine RBC 0 SEEN, Urine WBC 0 SEEN, Ur Squamous Epith Cells 0-5 SEEN, Urine Bacteria 0 SEEN, Urine Mucus 0 SEEN 01/12/21 05:40: WBC 5.8, RBC 3.90 L, Hgb 10.7 L, Hct 33.2 L, MCV 85.1, MCH 27.4, MCHC 32.2, RDW Std Deviation 43.0, RDW Coeff of [place] 13.9, Plt Count 157, MPV 10.2, Immature Gran % (Auto) 0.200, Neut % (Auto) 51.0, Lymph % (Auto) 34.3, [place] % (Auto) 9.5, Eos % (Auto) 4.7, Baso % (Auto) 0.3, Absolute Neuts (auto) 3.0, Absolute Lymphs (auto) 1.98, Nucleated RBC % 0 01/12/21 05:40: Sodium 138, Potassium 3.5, Chloride 106, Carbon Dioxide 26.0, Anion Gap 6, BUN 11, Creatinine 0.22 L, Estim Creat Clear Calc 321.97, Est GFR (MDRD) Af Amer 624, Est GFR (MDRD) Non-Af 516, BUN/Creatinine Ratio 50.7 H, Glucose 90, Calcium 8.2 L, Total Bilirubin 0.20, AST 15, ALT 29, Alkaline Phosphatase 104, Total Protein 7.5, Albumin 2.9 L, Globulin 4.6 H, Albumin/Globulin Ratio 0.6 L Micro: Microbiology 01/11/21 22:20 Interface Orders Group A Streptococcus Rapid Screen - Preliminary 01/11/21 21:12 Nasal Secretion SARS-CoV-2 Antigen (Rapid) - Final Radiology Impression Acute Abdomen Series 01/11/21 21:59 IMPRESSION: Non-obstructive bowel gas pattern. Low lung volumes. Electronically Signed: Dale Cervantes MD at 23:18 EST Tel , Service support , Abdomen/Pelvis CT 01/11/21 22:30 IMPRESSION: 1. No significant interval change compared with previous reports. 2. Remote distal colectomy with chronic distention of rectal pouch and mild rectal wall thickening. Follow-up as clinically warranted. 3. Other chronic and nonurgent findings within body of report. Individualized dose optimization techniques were used for this CT. at 0036 Reported and signed by: Camacho Dillon MD Electronically Signed: Camacho Dillon MD at 0:35 EST Tel , Service support , Charges/Coding Visit Charges Inpatient E&M: 55280 Init Hosp L3
[2021-01-12] MEDS: Ferrous Sulfate 300 MG/5 ML UDC 75 MG GT (08:57)
[2021-01-12] MEDS: Doxazosin 1 MG Tablet 2 MG GT (08:59)
[2021-01-12] MEDS: Ascorbic Acid 500 MG Tablet GT (08:59)
[2021-01-12] MEDS: Simethicone 40MG/0.6ML Bottle 40 MG GT ×4 (08:59→22:02)
[2021-01-12] MEDS: NYSTATIN 500,000 UNIT/5 ML UDC 100000 UNIT GT ×4 (09:00→22:01)
[2021-01-12] MEDS: Phenobarbital 20 MG/5 ML UDC 60 MG GT ×2 (09:05→22:00)
[2021-01-12] MEDS: LORazepam 1 MG Tablet 2 MG GT (11:32)
[2021-01-12] MEDS: GABAPENTIN 250 MG/5 ML SOLUTION GT ×3 (13:20→22:06)
[2021-01-12] MEDS: Jevity 1.5 1,000 ML 50 ML GT (14:35)
--- NOTE | 2021-01-12 16:11 | PN.HOSP_ITS ---
Subjective Subjective Patient seen and examined. Mother was by his bedside. Per his mother, she noted he had dark red blood in his ostomy bag. A cute abdominal series showed a nonobstructive bowel pattern with low lung volumes and CT abdomen and pelvis showed no significant interval change compared with previous reports, and remote distal colectomy with chronic distension of rectal pouch and mild rectal wall thickening. General surgery on board. Patient seen and examined. Per his mother, he had had no more blood seen in his colostomy. The stool in his colostomy bag is dark, which his mother says she thinks it is because he is on iron. Objective Data Objective Data Vital Signs: Vital Signs Temp Pulse Resp BP Pulse Ox 99 F 107 H 16 121/77 H 94 01/12/21 14:00 01/12/21 15:31 01/12/21 14:00 01/12/21 14:00 01/12/21 14:00 Oxygen Flow Rate (L/min) 4 Oxygen Delivery Method Mechanical Ventilator Weight: 153 lb 0.013 oz Body Mass Index (BMI) 29.9 Intake & Output: Intake and Output for Last 24 Hours 01/10/21 01/11/21 01/12/21 23:59 23:59 23:59 Intake Total 1570 / 1570 Output Total 120 / 120 Balance 1450 / 1450 Lab / Micro Data Result Diagrams: 01/12/21 05:40 01/12/21 05:40 Labs: Laboratory Results - last 24 hr 01/11/21 21:10: WBC 8.1, RBC 4.38 L, Hgb 12.3 L, Hct 36.5 L, MCV 83.3, MCH 28.1, MCHC 33.7, RDW Std Deviation 42.1, RDW Coeff of Emilee 13.7, Plt Count 181, MPV 9.8, Immature Gran % (Auto) 0.200, Neut % (Auto) 66.5, Lymph % (Auto) 21.8, [place] % (Auto) 8.4, Eos % (Auto) 2.7, Baso % (Auto) 0.4, Absolute Neuts (auto) 5.4, Absolute Lymphs (auto) 1.77, Nucleated RBC % 0 01/11/21 21:10: Sodium 136, Potassium 4.0, Chloride 103, Carbon Dioxide 29.0, Anion Gap 4 L, BUN 13, Creatinine 0.31 L, Estim Creat Clear Calc 228.49, Est GFR (MDRD) Af Amer 413, Est GFR (MDRD) Non-Af 342, BUN/Creatinine Ratio 41.9 H, Glucose 98, Calcium 8.6, Total Bilirubin 0.20, AST 21, ALT 31, Alkaline Phosphatase 125 H, Total Protein 8.8 H, Albumin 3.6, Globulin 5.2 H, Albumin/Globulin Ratio 0.7 L 01/11/21 22:20: Urine Color Yellow, Urine Clarity Clear, Urine pH 8.0, Ur Specific [place] 1.010, Urine Protein Negative, Urine Glucose (UA) Normal, Urine Ketones Negative, Urine Occult Blood Negative, Urine Nitrite Negative, Urine Bilirubin Negative, Urine Urobilinogen Normal, Ur Leukocyte Esterase Negative, Urine RBC 0 SEEN, Urine WBC 0 SEEN, Ur Squamous Epith Cells 0-5 SEEN, Urine Bacteria 0 SEEN, Urine Mucus 0 SEEN 01/12/21 05:40: WBC 5.8, RBC 3.90 L, Hgb 10.7 L, Hct 33.2 L, MCV 85.1, MCH 27.4, MCHC 32.2, RDW Std Deviation 43.0, RDW Coeff of Emilee 13.9, Plt Count 157, MPV 10.2, Immature Gran % (Auto) 0.200, Neut % (Auto) 51.0, Lymph % (Auto) 34.3, [place] % (Auto) 9.5, Eos % (Auto) 4.7, Baso % (Auto) 0.3, Absolute Neuts (auto) 3.0, Absolute Lymphs (auto) 1.98, Nucleated RBC % 0 01/12/21 05:40: Sodium 138, Potassium 3.5, Chloride 106, Carbon Dioxide 26.0, Anion Gap 6, BUN 11, Creatinine 0.22 L, Estim Creat Clear Calc 321.97, Est GFR (MDRD) Af Amer 624, Est GFR (MDRD) Non-Af 516, BUN/Creatinine Ratio 50.7 H, Glucose 90, Calcium 8.2 L, Total Bilirubin 0.20, AST 15, ALT 29, Alkaline Phosphatase 104, Total Protein 7.5, Albumin 2.9 L, Globulin 4.6 H, Albumin/Globulin Ratio 0.6 L Micro: Microbiology 01/11/21 22:20 Interface Orders Group A Streptococcus Rapid Screen - Preliminary 01/11/21 21:12 Nasal Secretion SARS-CoV-2 Antigen (Rapid) - Final Radiography Diagnostic Testing: Radiology Impression Acute Abdomen Series 01/11/21 21:59 IMPRESSION: Non-obstructive bowel gas pattern. Low lung volumes. Electronically Signed: Dale Cervantes MD at 23:18 EST Tel , Service support , Abdomen/Pelvis CT 01/11/21 22:30 IMPRESSION: 1. No significant interval change compared with previous reports. 2. Remote distal colectomy with chronic distention of rectal pouch and mild rectal wall thickening. Follow-up as clinically warranted. 3. Other chronic and nonurgent findings within body of report. Individualized dose optimization techniques were used for this CT. at 0036 Reported and signed by: Camacho Dillon MD Electronically Signed: Camacho Dillon MD at 0:35 EST Tel , Service support , Physical Exam Const Constitutional Narrative: on ventilator via tracheostomy. Exam Limitations: altered mental status Nutritional Appearance: obese Eyes PERRL and EOMs intact bilaterally Neck no lymphadenopathy Neck Narrative: tracheostomy in place Resp Resp Narrative: diminished breath sounds bibasally, on ventilator via tracheostomy Cardio regular rate, regular rhythm, S1 normal heart sound, S2 normal heart sound and no murmurs GI normal to inspection, nondistended, normoactive bowel sounds, soft to palpation, non-tender and non-distended Extremity Extremity Narrative: extremity contractures Neuro Neuro Narrative: altered mental status. Assessment & Plan Assessment/Plan (1) GI bleed: QUALIFIERS: GI bleed type/associated pathology: unspecified gastrointestinal hemorrhage type Qualified Code(s): K92.2 - Gastrointestinal hemorrhage, unspecified PLAN: #Acute GI bleed * Hb has remained stable * general surgery reviewed patient and think it is irritation of the distal mucosa with the ostomy change, and this may be due to the ostomy appliance being applied a little to tightly. Mother counseled about it. * per general surgery, patient's mother doesnt want to do a colonoscopy unless it is absolutely necessary. * to follow up with general surgery on outpatient basis. * #Chronic respiratory failure due to cerebral palsy * on vent via tracheostomy at home * breathing treatment with bronchodilators * titrate oxyten to maintain sats >90% #Cerebral palsy with spastic quadriplegia * on baclofen and ativan prn. * on metoprolol with tube feeds. * #Seizure disorder: on phenobarbital and gabapentin #GERD: on IV PPI. #History of PE: on lovenox. #Nutrition * on tube feeding. * on IV zofran prn. * #DVT prophylaxis: not indicated as patient is on therapeutic lovenox for PE Code status: full code. Charges/Coding Visit Charges Inpatient E&M: 94901 Subs Hosp L2
[2021-01-13] VITALS (8 sets, daily range): BP systolic 110–151; BP diastolic 56–91; PULSE 89–116; RESP 18–20; TEMP 37.3–37.4; O2SAT 93–96
[2021-01-13] MEDS: Baclofen 10 MG Tablet 5 MG GT ×3 (00:04→12:06)
[2021-01-13 05:31] LABS: Absolute Lymphocyte Count 2.84 X10^3/uL (0.83-4.51); Absolute Neutrophil Count 3.4 X10^3/uL (2.0-7.7); Basophil# 0.02 X10^3/uL; Basophil% 0.3 % (0-1); Eosinophils% 5.4 % (0-5); Hematocrit 34.8 % (40-54); Hemoglobin 11.1 g/dL (13.0-16.5); Lymphocyte # 2.84 X10^3/ul (0.83-4.51); Lymphocyte % 38.7 % (19-41); Mean Corp Hgb Conc 31.9 g/dL (32-36); Mean Corpuscular Hgb 27.7 pg (27.0-32.0); Mean Corpuscular Volume 86.8 fL (80-94); Mean Platelet Vol. 10.4 fl (6.2-12.0); Monocyte% 9.5 % (0-10); NRBC Flagged by Analyzer 0 % (0-5); Neutrophil # 3.37 X10^3/uL (2.7-7.7); Platelet Count 185 K/mm3 (150-450); RBC Distribution Width CV 13.9 % (11.6-14.6); Red Blood Count 4.01 M/mm3 (4.6-6.2); White Blood Count 7.3 K/mm3 (4.4-11.0)
[2021-01-13] MEDS: Metoclopramide 10 MG/10 ML UDC 5 MG GT ×2 (05:45→13:08)
[2021-01-13 05:50] LABS: Anion Gap 7 (5-15); BUN 11 mg/dL (7-18); BUN/Creat Ratio 38.5 RATIO (10-20); Calcium,Total 8.7 mg/dL (8.5-10.1); Chloride 106 mmol/L (98-107); Creatinine, Serum 0.29 mg/dL (0.70-1.30); EST Glomerular Filtration Rate 375 mL/min (>60); Est Glom Filt Rate - Afr Amer 454 mL/min (>60); Estimated Creatinine Clearance 244.25 ml/min; Glucose 94 mg/dL (74-106); Potassium 3.8 mmol/L (3.5-5.1); Sodium Level 137 mmol/L (136-145)
--- NOTE | 2021-01-13 08:16 | PCM.PN.SRG ---
Subjective Subjective Patient not seem to have any obvious blood in his ostomy, last night/afternoon there is a little smear. Patient has not been having much output from the ostomy he does have issues with chronic constipation cannot see where he got his medication for that Trulance-but it is ordered Objective Data Objective Data Vital Signs: Vital Signs Temp Pulse Resp BP Pulse Ox 99.3 F H 89 18 110/56 L 96 01/13/21 02:00 01/13/21 03:00 01/13/21 02:00 01/13/21 02:00 01/13/21 02:00 Oxygen Flow Rate (L/min) 4 Oxygen Delivery Method Mechanical Ventilator Weight: 161 lb 13.109 oz Body Mass Index (BMI) 29.9 Intake & Output: Intake and Output for Last 24 Hours 01/11/21 01/12/21 01/13/21 23:59 23:59 23:59 Intake Total 3263 / 3599.67 1356.67 / 1356.67 Output Total 121 / 121 Balance 3142 / 3478.67 1356.67 / 1356.67 Lab / Micro Data Result Diagrams: 01/13/21 04:54 01/13/21 04:56 Labs: Laboratory Results - last 24 hr 01/13/21 04:54: WBC 7.3, RBC 4.01 L, Hgb 11.1 L, Hct 34.8 L, MCV 86.8, MCH 27.7, MCHC 31.9 L, RDW Std Deviation 44.0 H, RDW Coeff of Emilee 13.9, Plt Count 185, MPV 10.4, Immature Gran % (Auto) 0.100, Neut % (Auto) 46.0 L, Lymph % (Auto) 38.7, [place] % (Auto) 9.5, Eos % (Auto) 5.4 H, Baso % (Auto) 0.3, Absolute Neuts (auto) 3.4, Absolute Lymphs (auto) 2.84, Nucleated RBC % 0 01/13/21 04:56: Sodium 137, Potassium 3.8, Chloride 106, Carbon Dioxide 24.0, Anion Gap 7, BUN 11, Creatinine 0.29 L, Estim Creat Clear Calc 244.25, Est GFR (MDRD) Af Amer 454, Est GFR (MDRD) Non-Af 375, BUN/Creatinine Ratio 38.5 H, Glucose 94, Calcium 8.7 Micro: Microbiology 01/11/21 22:20 Interface Orders Group A Streptococcus Rapid Screen - Preliminary 01/11/21 21:12 Nasal Secretion SARS-CoV-2 Antigen (Rapid) - Final Physical Exam Const alert Constitutional Narrative: Nonverbal HEENT normocephalic and head/scalp atraumatic Resp Resp Narrative: Trach in place normal respiratory effort Cardio regular rate GI soft to palpation; Negative for non-distended GI Narrative: Colostomy left lower quadrant?pink no signs of bleeding. Fracisco button in place Palpation: Negative for guarding Extremity Extremity Narrative: Chronic contractures from cerebral palsy Neuro Neuro Narrative: Baseline per mom Psych Psych Narrative: Baseline per mom Assessment & Plan Assessment/Plan (1) GI bleed: QUALIFIERS: GI bleed type/associated pathology: unspecified gastrointestinal hemorrhage type Qualified Code(s): K92.2 - Gastrointestinal hemorrhage, unspecified PLAN: No further obvious bleeding from stoma. Hemoglobin is 11.1. Patient has not had a lot of output but he also has chronic constipation I do not see that he received his Trulance which per his mom really seems to help. 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 No plans for colonoscopy for this current hospitalization-patient's mom is agreeable with plan. Zabrina Wilson M.D. Pager: [phone] [facility] [address] [place] [address], [facility], [address] [place] [address] Office: [phone] Charges/Coding Visit Charges Inpatient E&M: 94370 Subs Hosp L2
[2021-01-13] MEDS: Doxazosin 1 MG Tablet 2 MG GT (09:52)
[2021-01-13] MEDS: Ascorbic Acid 500 MG Tablet GT (09:52)
[2021-01-13] MEDS: NYSTATIN 500,000 UNIT/5 ML UDC 100000 UNIT GT ×2 (09:53→13:09)
[2021-01-13] MEDS: Ferrous Sulfate 300 MG/5 ML UDC 75 MG GT (09:53)
[2021-01-13] MEDS: Simethicone 40MG/0.6ML Bottle 40 MG GT ×2 (09:55→13:09)
[2021-01-13] MEDS: GABAPENTIN 250 MG/5 ML SOLUTION GT ×2 (10:05→13:11)
[2021-01-13] MEDS: 0.9% Normal Saline 1,000 ML 100 ML IV (10:06)
[2021-01-13] MEDS: Phenobarbital 20 MG/5 ML UDC 60 MG GT (10:10)
--- NOTE | 2021-01-13 11:26 | PCM.DC ---
Discharge Instructions Diet Discharge Diet: - (tube feed Jevity 1.5 ) Activity Discharge Activity: May Not Drive Dressing / Incision Call your doctor if you observe: Fever of 101 or Higher, Coldness, Increased Pain, Numbness or Tingling, Change in Color, Inability to urinate, Inability to have a bowel movement, Shortness of breath, Dizziness, Fainting spells, Swelling in the ankles, Chest pain, Prolonged hiccupping, Increased palpitations (irregular heartbeat) and Calf discomfort Follow Up Care Test Results: Test results from this visit will be discussed in further detail at your follow-up appointment, if applicable. Discharge Plan Admission Admit Date/Time: 01/12/21 00:13 Primary Reason for Your Visit: GI Bleed Attending Provider: Lefty Jordan Primary Care Provider: Timmy Conn Consulting Providers: Zabrina Wilson Discharge Orders/Prescriptions Prescriptions: Continued epinephrine 0.3 mg/0.3 mL auto-injector 0.3 mg IM ONCE PRN (Reason: Allergic Reaction) RF: 0 albuterol sulfate 2.5 mg /3 mL (0.083 %) solution for nebulization 2.5 mg inhalation Q4H PRN (Reason: Sob &/Or Wheezing) RF: 0 guaifenesin 200 mg/5 mL liquid 200 mg feeding tube Q4H PRN (Reason: Cough) RF: 0 esomeprazole magnesium [address] for susp in packet 40 mg G-tube BID RF: 0 famotidine [Pepcid] 20 mg tablet 20 mg feeding tube LUNCH RF: 0 simethicone 40 mg/0.6 mL drops,suspension 40 mg G-tube 4X/DAY RF: 0 metoclopramide HCl 5 mg/5 mL solution 5 mg feeding tube TID RF: 0 phenobarbital 20 MG/5 ML elixir 60 mg G-tube BID RF: 0 Lactobacillus acidophilus 1 EACH capsule 1 cap G-tube DAILY RF: 0 lorazepam 1 MG tablet 2 mg G-tube Q8 PRN (Reason: Agitation) RF: 0 ferrous sulfate 15 MG/ML drops 75 mg G-tube DAILY RF: 0 Cough Assist 1 dose .Route .MEDSUPPLY RF: 0 oxygen concentrator 1 dose .Route .MEDSUPPLY RF: 0 ondansetron HCl 4 MG tablet 5 ml feeding tube DAILY PRN (Reason: Nausea) RF: 0 baclofen 5 mg/5 mL solution 20 mg G-tube Q6H RF: 0 lactose-reduced food with fibr 0.06 gram-1.2 kcal/mL liquid 1,000 ml G-tube DAILY RF: 0 doxazosin 2 mg tablet 2 mg G-tube DAILY Qty: 30 RF: 0 ascorbic acid (vitamin C) 500 MG/5 ML syrup 500 mg G-tube DAILY RF: 0 gabapentin 250 MG/5 ML solution 250 mg G-tube 4X/DAY RF: 0 plecanatide 3 mg tablet 3 mg GT DAILY RF: 0 nystatin 100,000 unit/mL Suspension 1 ml BUCCAL 4X/DAY RF: 0 alum-mag hydroxide-simeth 200-200-20 mg/5 mL Suspension 20 ml feeding tube 4X/DAY RF: 0 calcium carbonate 500 mg/5 mL (1,250 mg/5 mL) suspension 500 mg feeding tube DAILY PRN (Reason: health mainten) RF: 0 Referrals / Follow Up: Timmy Conn MD [Primary Care Provider] - Within 2 Weeks Zabrina Wilson MD [STAFF PHYSICIAN] - Within 2 Weeks (for colostomy issues) Disposition Disposition (needs filled in before D/C Order can be placed): Home Health Service
--- NOTE | 2021-01-13 11:27 | PCM.DC.SUM ---
Providers Date of Admission: 01/12/21 Primary Care Physician: Dr. Timmy Conn MD Consultations 01/12/21 02:29 Consult: General Surgery Routine Consulting Provider: Zabrina Wilson Reason for Consult: GI bleed EMERGENT Consult: No MD Notified: Yes Date Notified: 01/12/21 Time Notified: 00:17 Method of Notification: called Reason For Visit: GI BLEED Diagnosis Discharge Diagnosis (1) GI bleed: Status: Acute Code(s): K92.2 - Gastrointestinal hemorrhage, unspecified Qualifiers: GI bleed type/associated pathology: unspecified gastrointestinal hemorrhage type Qualified Code(s): K92.2 - Gastrointestinal hemorrhage, unspecified Medications at Discharge Home Medications phenobarbital 60 mg G-TUBE BID 02/19/17 Lactobacillus acidophilus 1 cap G-TUBE DAILY 02/04/18 metoclopramide HCl 5 mg/5 mL oral solution 5 mg FEEDING TUBE TID ml 09/16/18 lorazepam 2 mg G-TUBE Q8 PRN 10/08/18 Cough Assist 1 dose .ROUTE .MEDSUPPLY 12/25/18 ferrous sulfate 75 mg G-TUBE DAILY 12/25/18 oxygen concentrator 1 dose .ROUTE .MEDSUPPLY 12/25/18 ondansetron HCl 5 ml FEEDING TUBE DAILY PRN 05/09/19 doxazosin 2 mg G-TUBE DAILY #30 tab 07/11/19 ascorbic acid (vitamin C) 500 mg G-TUBE DAILY 08/04/19 gabapentin 250 mg G-TUBE 4X/DAY 09/26/19 epinephrine 0.3 mg/0.3 mL injection, auto-injector 0.3 mg IM ONCE PRN 10/24/19 calcium carbonate 500 mg FEEDING TUBE DAILY PRN 07/09/20 albuterol sulfate 2.5 mg INHALATION Q4H PRN ml 11/27/20 baclofen 5 mg/5 mL oral solution 20 mg G-TUBE Q6H 11/27/20 esomeprazole magnesium 40 mg granules delayed release for susp 40 mg G-TUBE BID ea 11/27/20 famotidine 20 mg tablet 20 mg FEEDING TUBE LUNCH 11/27/20 guaifenesin 200 mg/5 mL oral liquid 200 mg FEEDING TUBE Q4H PRN ml 11/27/20 lactose-reduced food with fiber 0.06 gram-1.2 kcal/mL oral liquid 1,000 ml G-TUBE DAILY 11/27/20 plecanatide 3 mg tablet 3 mg GT DAILY 11/27/20 simethicone 40 mg/0.6 mL oral drops,suspension 40 mg G-TUBE 4X/DAY 11/27/20 alum-mag hydroxide-simeth 20 ml FEEDING TUBE 4X/DAY 01/11/21 nystatin 1 ml BUCCAL 4X/DAY 01/11/21 Hospital Course Summary of Care Provided Hospital Course: 40-year-old male with history of tracheostomy, G-tube and colostomy was admitted through ER for GI bleed. Patient was admitted in PCU and surgery was consulted. Patient was found to have blood in colostomy from mucosal irritation. Acute abdominal series showed nonobstructive bowel gas pattern with low lung volumes with CT abdomen showed no significant interval change compared with the previous report. Patient had remote distal colectomy with chronic distention of the rectal pouch and mild rectal wall thickening. Patient hemoglobin remained stable. Mother does not want colonoscopy unless it is absolutely necessary. Follow About them as an outpatient. Rest of comorbidities include cerebral palsy with spastic quadriplegia chronic respiratory failure on ventilator through tracheostomy. On G-tube feeding. On Jevity. Patient is discharged home under care of patient's parent. Patient had low-grade temperature in the 99's, and mild sinus tachycardia although no obvious signs of infection. No leukocytosis. UA is negative WBC 0, RBC 0, 0 bacteria LE and nitrite negative. Discharge medication reconciliation done. Discharge follow-up instructions completed. Discharge process discussed with the patient and all questions were answered to patient's satisfaction. SARS-CoV-2 rapid antigen and group A strep negative. CT abdomen showed lower lungs with atelectatic changes and scarring. It is difficult for chest physiotherapy the patient of cerebral palsy. Family wants liberal and empathetic treatment given his medical condition without tight boundaries to control heart rate and vitals. Discharge medication reconciliation done. Discharge follow-up instructions completed. Discharge process discussed with the patient and all questions were answered to patient's satisfaction. Total time spent, exact 35 minutes on discharge meds reconciliation, examination, coordination of care with nurses and ancillary staff, review of imaging and blood test and discussion with the patient on follow-up instructions Physical Exam Narrative Afebrile. Mild temperature 99.4 Fahrenheit General: Cerebral palsy. Noncommunicative/nonverbal. HEENT: PERRLA, EOMI Oral: No Gingival or Mucosal Lesions/ Ulcerations Neck: Supple,Negative Carotid Bruits Lungs: On mechanical ventilator through tracheostomy. Air entry diminished. Cardiovascular: Sinus tachycardia, heart rate 90s to 116, Normal S1, Normal S2, No murmurs Abdomen: G-tube. On tube feed. Colostomy having bilious fluid in colostomy bag. Mild abdominal distention. : Urinary incontinent. No suprapubic tenderness. Extremities: No edema, Capillary Refill Less than 3 Seconds Skin: No rashes, No breakdown Musculoskeletal: Contracture in lower extremity at hip, ankle and knee joints. Neurological: MRDD. Awake. Psych/Mental Status: Flat affect Weight / BMI Weight Weight: 161 lb 13.109 oz Body Mass Index (BMI) 29.9 ABG / Lab / Microbiology Data Result Diagrams: 01/13/21 04:54 01/13/21 04:56 Laboratory: Laboratory Results - last 24 hr 01/13/21 04:54: WBC 7.3, RBC 4.01 L, Hgb 11.1 L, Hct 34.8 L, MCV 86.8, MCH 27.7, MCHC 31.9 L, RDW Std Deviation 44.0 H, RDW Coeff of Em[place] 13.9, Plt Count 185, MPV 10.4, Immature Gran % (Auto) 0.100, Neut % (Auto) 46.0 L, Lymph % (Auto) 38.7, [place] % (Auto) 9.5, Eos % (Auto) 5.4 H, Baso % (Auto) 0.3, Absolute Neuts (auto) 3.4, Absolute Lymphs (auto) 2.84, Nucleated RBC % 0 01/13/21 04:56: Sodium 137, Potassium 3.8, Chloride 106, Carbon Dioxide 24.0, Anion Gap 7, BUN 11, Creatinine 0.29 L, Estim Creat Clear Calc 244.25, Est GFR (MDRD) Af Amer 454, Est GFR (MDRD) Non-Af 375, BUN/Creatinine Ratio 38.5 H, Glucose 94, Calcium 8.7 Microbiology: Microbiology 01/11/21 22:20 Interface Orders Group A Streptococcus Rapid Screen - Final 01/11/21 21:12 Nasal Secretion SARS-CoV-2 Antigen (Rapid) - Final Meaningful Use Info Meaningful Use Diagnoses (Choose all that apply): None applicable Discharge Plan Admission Admit Date/Time: 01/12/21 00:13 Primary Reason for Your Visit: GI Bleed Attending Provider: Lefty Jordan Primary Care Provider: Timmy Conn Consulting Providers: Zabrina Wilson Discharge Orders/Prescriptions Prescriptions: Continued epinephrine 0.3 mg/0.3 mL auto-injector 0.3 mg IM ONCE PRN (Reason: Allergic Reaction) RF: 0 albuterol sulfate 2.5 mg /3 mL (0.083 %) solution for nebulization 2.5 mg inhalation Q4H PRN (Reason: Sob &/Or Wheezing) RF: 0 guaifenesin 200 mg/5 mL liquid 200 mg feeding tube Q4H PRN (Reason: Cough) RF: 0 esomeprazole magnesium [address] for susp in packet 40 mg G-tube BID RF: 0 famotidine [Pepcid] 20 mg tablet 20 mg feeding tube LUNCH RF: 0 simethicone 40 mg/0.6 mL drops,suspension 40 mg G-tube 4X/DAY RF: 0 metoclopramide HCl 5 mg/5 mL solution 5 mg feeding tube TID RF: 0 phenobarbital 20 MG/5 ML elixir 60 mg G-tube BID RF: 0 Lactobacillus acidophilus 1 EACH capsule 1 cap G-tube DAILY RF: 0 lorazepam 1 MG tablet 2 mg G-tube Q8 PRN (Reason: Agitation) RF: 0 ferrous sulfate 15 MG/ML drops 75 mg G-tube DAILY RF: 0 Cough Assist 1 dose .Route .MEDSUPPLY RF: 0 oxygen concentrator 1 dose .Route .MEDSUPPLY RF: 0 ondansetron HCl 4 MG tablet 5 ml feeding tube DAILY PRN (Reason: Nausea) RF: 0 baclofen 5 mg/5 mL solution 20 mg G-tube Q6H RF: 0 lactose-reduced food with fibr 0.06 gram-1.2 kcal/mL liquid 1,000 ml G-tube DAILY RF: 0 doxazosin 2 mg tablet 2 mg G-tube DAILY Qty: 30 RF: 0 ascorbic acid (vitamin C) 500 MG/5 ML syrup 500 mg G-tube DAILY RF: 0 gabapentin 250 MG/5 ML solution 250 mg G-tube 4X/DAY RF: 0 plecanatide 3 mg tablet 3 mg GT DAILY RF: 0 nystatin 100,000 unit/mL Suspension 1 ml BUCCAL 4X/DAY RF: 0 alum-mag hydroxide-simeth 200-200-20 mg/5 mL Suspension 20 ml feeding tube 4X/DAY RF: 0 calcium carbonate 500 mg/5 mL (1,250 mg/5 mL) suspension 500 mg feeding tube DAILY PRN (Reason: health mainten) RF: 0 Referrals / Follow Up: Timmy Conn MD [Primary Care Provider] - Within 2 Weeks Zabrina Wilson MD [STAFF PHYSICIAN] - Within 2 Weeks (for colostomy issues) Disposition Disposition (needs filled in before D/C Order can be placed): Home Health Service
--- NOTE | 2021-01-13 12:00 | PHA.DC.MR ---
Pharmacy Service has performed discharge medication reconciliation for this patient. The patient's discharge medication list was reviewed for discrepancies and discrepancies were resolved. Home Medications phenobarbital 60 mg G-TUBE BID 02/19/17 Lactobacillus acidophilus 1 cap G-TUBE DAILY 02/04/18 metoclopramide HCl 5 mg/5 mL oral solution 5 mg FEEDING TUBE TID ml 09/16/18 lorazepam 2 mg G-TUBE Q8 PRN 10/08/18 Cough Assist 1 dose .ROUTE .MEDSUPPLY 12/25/18 ferrous sulfate 75 mg G-TUBE DAILY 12/25/18 oxygen concentrator 1 dose .ROUTE .MEDSUPPLY 12/25/18 ondansetron HCl 5 ml FEEDING TUBE DAILY PRN 05/09/19 doxazosin 2 mg G-TUBE DAILY #30 tab 07/11/19 ascorbic acid (vitamin C) 500 mg G-TUBE DAILY 08/04/19 gabapentin 250 mg G-TUBE 4X/DAY 09/26/19 epinephrine 0.3 mg/0.3 mL injection, auto-injector 0.3 mg IM ONCE PRN 10/24/19 calcium carbonate 500 mg FEEDING TUBE DAILY PRN 07/09/20 albuterol sulfate 2.5 mg INHALATION Q4H PRN ml 11/27/20 baclofen 5 mg/5 mL oral solution 20 mg G-TUBE Q6H 11/27/20 esomeprazole magnesium 40 mg granules delayed release for susp 40 mg G-TUBE BID ea 11/27/20 famotidine 20 mg tablet 20 mg FEEDING TUBE LUNCH 11/27/20 guaifenesin 200 mg/5 mL oral liquid 200 mg FEEDING TUBE Q4H PRN ml 11/27/20 lactose-reduced food with fiber 0.06 gram-1.2 kcal/mL oral liquid 1,000 ml G-TUBE DAILY 11/27/20 plecanatide 3 mg tablet 3 mg GT DAILY 11/27/20 simethicone 40 mg/0.6 mL oral drops,suspension 40 mg G-TUBE 4X/DAY 11/27/20 alum-mag hydroxide-simeth 20 ml FEEDING TUBE 4X/DAY 01/11/21 nystatin 1 ml BUCCAL 4X/DAY 01/11/21
[2021-01-13] MEDS: PLECANATIDE 3 MG TABLET PO (12:05)
[2021-01-13] MEDS: 0.9% Saline Lock 10 ML Syringe IV (13:54)
--- NOTE | 2021-01-13 14:53 | CASEMGMT ---
Pt is active with [facility], call to N to notify of OBS status(no LAUREN needed) and pt discharge today, voices understanding. Clinicals to be faxed. Sher GRIMALDO CM
[2021-01-13] MEDS: Acetaminophen 650 MG/20 ML UDC GT (15:17)
== END 2021-01-13 11:48 | disposition home health service (06) ==
LOC: ED 01-12 00:22 → PCU 01-12 01:07
PROVIDERS: Student in an Organized Health Care Education/Training Program; Admitting Provider Family Medicine; Emergency Provider Emergency Medicine; PCP Family Medicine; Visit Provider Internal Medicine
DX: K92.2 Gastrointestinal hemorrhage, unspecified (principal); D50.9 Iron deficiency anemia, unspecified; G40.909 Epilepsy, unspecified, not intractable, without status epilepticus; E66.9 Obesity, unspecified; Q43.8 Other specified congenital malformations of intestine; J96.11 Chronic respiratory failure with hypoxia; J96.12 Chronic respiratory failure with hypercapnia; G80.0 Spastic quadriplegic cerebral palsy; Z68.31 Body mass index [BMI] 31.0-31.9, adult; Z93.3 Colostomy status; Z99.11 Dependence on respirator [ventilator] status; Z93.1 Gastrostomy status; Z93.0 Tracheostomy status; Z86.711 Personal history of pulmonary embolism; Z79.899 Other long term (current) drug therapy; K21.9 Gastro-esophageal reflux disease without esophagitis
CPT/HCPCS: 36415; 36591; 74022; 74177; 80048; 80053; 81001; 85025; 87426; 87880; 94762; 96361; 96365; 96366; 96375; 96376; 97802; 99218; 99285; J7030; J7050; Q9967; A4216; G0378

== ENCOUNTER 2021-01-28 13:56 | Outpatient (RCR) | payer MEDICARE, BC, MEDICAID, SELFPAY ==
[2021-01-28 14:03] LABS: Hematocrit 36.4 % (40-54); Hemoglobin 11.7 g/dL (13.0-16.5); Mean Corp Hgb Conc 32.1 g/dL (32-36); Mean Corpuscular Hgb 27.4 pg (27.0-32.0); Mean Corpuscular Volume 85.2 fL (80-94); Mean Platelet Vol. 10.6 fl (6.2-12.0); Platelet Count 233 K/mm3 (150-450); RBC Distribution Width CV 14.3 % (11.6-14.6); RBC Distribution Width SD 44.3 fl (35.1-43.9); Red Blood Count 4.27 M/mm3 (4.6-6.2); White Blood Count 7.3 K/mm3 (4.4-11.0)
[2021-01-28 14:11] LABS: Anion Gap 6 (5-15); BUN 14 mg/dL (7-18); BUN/Creat Ratio 41.8 RATIO (10-20); Calcium,Total 8.8 mg/dL (8.5-10.1); Chloride 103 mmol/L (98-107); Creatinine, Serum 0.34 mg/dL (0.70-1.30); EST Glomerular Filtration Rate 312 mL/min (>60); Est Glom Filt Rate - Afr Amer 378 mL/min (>60); Glucose 89 mg/dL (74-106); Potassium 4.2 mmol/L (3.5-5.1); Sodium Level 138 mmol/L (136-145)
== END 2021-02-21 23:59 ==
LOC: LABSPEC 13:56
PROVIDERS: PCP Family Medicine; Referring Provider Internal Medicine Cardiovascular Disease; Visit Provider Internal Medicine Infectious Disease
DX: G80.0 Spastic quadriplegic cerebral palsy (principal); R60.9 Edema, unspecified; J96.21 Acute and chronic respiratory failure with hypoxia; E87.6 Hypokalemia; E87.1 Hypo-osmolality and hyponatremia
CPT/HCPCS: 80048; 85027

== ENCOUNTER 2021-02-24 15:31 | Outpatient (RCR) | payer MEDICARE, BC, MEDICAID, SELFPAY ==
[2021-02-24 15:45] LABS: Hematocrit 33.9 % (40-54); Hemoglobin 10.8 g/dL (13.0-16.5); Mean Corp Hgb Conc 31.9 g/dL (32-36); Mean Corpuscular Hgb 27.8 pg (27.0-32.0); Mean Corpuscular Volume 87.4 fL (80-94); Mean Platelet Vol. 10.7 fl (6.2-12.0); Platelet Count 175 K/mm3 (150-450); RBC Distribution Width CV 14.3 % (11.6-14.6); RBC Distribution Width SD 45.6 fl (35.1-43.9); Red Blood Count 3.88 M/mm3 (4.6-6.2); White Blood Count 5.2 K/mm3 (4.4-11.0)
[2021-02-24 15:53] LABS: Anion Gap 9 (5-15); BUN 14 mg/dL (7-18); BUN/Creat Ratio 49.8 RATIO (10-20); Calcium,Total 8.3 mg/dL (8.5-10.1); Chloride 104 mmol/L (98-107); Creatinine, Serum 0.28 mg/dL (0.70-1.30); EST Glomerular Filtration Rate 382 mL/min (>60); Est Glom Filt Rate - Afr Amer 463 mL/min (>60); Glucose 130 mg/dL (74-106); Potassium 3.2 mmol/L (3.5-5.1); Sodium Level 139 mmol/L (136-145)
== END 2021-03-24 23:59 ==
LOC: LABSPEC 15:31
PROVIDERS: PCP Family Medicine; Referring Provider Internal Medicine Cardiovascular Disease; Visit Provider Internal Medicine Infectious Disease
DX: D50.9 Iron deficiency anemia, unspecified (principal); I26.99 Other pulmonary embolism without acute cor pulmonale; G80.9 Cerebral palsy, unspecified; J96.10 Chronic respiratory failure, unspecified whether with hypoxia or hypercapnia; D69.6 Thrombocytopenia, unspecified; R00.0 Tachycardia, unspecified; I34.1 Nonrheumatic mitral (valve) prolapse; R60.9 Edema, unspecified
CPT/HCPCS: 80048; 85027

== ENCOUNTER 2021-03-25 11:44 | Outpatient (RCR) | payer MEDICARE, BC, MEDICAID, SELFPAY ==
[2021-03-25 12:02] LABS: Hemoglobin 11.5 g/dL (13.0-16.5); Mean Corp Hgb Conc 32.9 g/dL (32-36); Mean Corpuscular Hgb 28.5 pg (27.0-32.0); Mean Corpuscular Volume 86.8 fL (80-94); Mean Platelet Vol. 10.5 fl (6.2-12.0); Platelet Count 175 K/mm3 (150-450); RBC Distribution Width CV 13.7 % (11.6-14.6); Red Blood Count 4.03 M/mm3 (4.6-6.2); White Blood Count 5.6 K/mm3 (4.4-11.0)
[2021-03-25 12:51] LABS: Anion Gap 6 (5-15); BUN 19 mg/dL (7-18); BUN/Creat Ratio 54.3 RATIO (10-20); Calcium,Total 8.2 mg/dL (8.5-10.1); Chloride 103 mmol/L (98-107); Creatinine, Serum 0.35 mg/dL (0.70-1.30); EST Glomerular Filtration Rate 297 mL/min (>60); Est Glom Filt Rate - Afr Amer 359 mL/min (>60); Glucose 90 mg/dL (74-106); Potassium 3.7 mmol/L (3.5-5.1); Sodium Level 137 mmol/L (136-145)
== END 2021-04-21 23:59 ==
LOC: LABSPEC 11:44
PROVIDERS: PCP Family Medicine; Referring Provider Internal Medicine Cardiovascular Disease; Visit Provider Internal Medicine Infectious Disease
DX: J20.8 Acute bronchitis due to other specified organisms (principal); B96.5 Pseudomonas (aeruginosa) (mallei) (pseudomallei) as the cause of diseases classified elsewhere
CPT/HCPCS: 80048; 85027

== ENCOUNTER 2021-04-21 14:24 | Outpatient (RCR) | payer MEDICARE, BC, MEDICAID, SELFPAY ==
[2021-04-21 14:32] LABS: Hematocrit 35.8 % (40-54); Hemoglobin 12.2 g/dL (13.0-16.5); Mean Corp Hgb Conc 34.1 g/dL (32-36); Mean Corpuscular Hgb 29.6 pg (27.0-32.0); Mean Corpuscular Volume 86.9 fL (80-94); Mean Platelet Vol. 11.3 fl (6.2-12.0); Platelet Count 185 K/mm3 (150-450); RBC Distribution Width CV 13.9 % (11.6-14.6); RBC Distribution Width SD 43.7 fl (35.1-43.9); Red Blood Count 4.12 M/mm3 (4.6-6.2); White Blood Count 6.8 K/mm3 (4.4-11.0)
[2021-04-21 14:40] LABS: Anion Gap 5 (5-15); BUN 18 mg/dL (7-18); BUN/Creat Ratio 59.4 RATIO (10-20); Calcium,Total 8.6 mg/dL (8.5-10.1); Chloride 105 mmol/L (98-107); EST Glomerular Filtration Rate 350 mL/min (>60); Est Glom Filt Rate - Afr Amer 424 mL/min (>60); Glucose 93 mg/dL (74-106); Sodium Level 139 mmol/L (136-145)
== END 2021-04-21 23:59 ==
LOC: LABSPEC 14:24
PROVIDERS: PCP Family Medicine; Visit Provider Internal Medicine Infectious Disease
DX: J20.8 Acute bronchitis due to other specified organisms (principal); B96.5 Pseudomonas (aeruginosa) (mallei) (pseudomallei) as the cause of diseases classified elsewhere
CPT/HCPCS: 80048; 85027

== ENCOUNTER 2021-04-28 13:30 | Outpatient (CLI) | payer MEDICARE, BC, MEDICAID, SELFPAY | END 2021-04-28 23:59 | disposition home or self-care (01) | LOC: LABSPEC 13:32 | PROVIDERS: PCP Family Medicine; Referring Provider Internal Medicine Critical Care Medicine; Visit Provider Internal Medicine Critical Care Medicine | DX: J96.11 Chronic respiratory failure with hypoxia (principal); J96.12 Chronic respiratory failure with hypercapnia | CPT/HCPCS: 87070; 87077; 87184; 87186; 87205 ==

== ENCOUNTER 2021-05-13 09:18 | Outpatient (RCR) | payer MEDICARE, BC, MEDICAID, SELFPAY ==
[2021-05-09 14:41] LABS: Anion Gap 3 (5-15); BUN 20 mg/dL (7-18); BUN/Creat Ratio 72.5 RATIO (10-20); Calcium,Total 8.6 mg/dL (8.5-10.1); Chloride 109 mmol/L (98-107); Creatinine, Serum 0.28 mg/dL (0.70-1.30); EST Glomerular Filtration Rate 390 mL/min (>60); Est Glom Filt Rate - Afr Amer 472 mL/min (>60); Glucose 97 mg/dL (74-106); Potassium 3.7 mmol/L (3.5-5.1); Sodium Level 139 mmol/L (136-145)
[2021-05-13 09:58] LABS: Absolute Lymphocyte Count 3.26 X10^3/uL (0.83-4.51); Absolute Neutrophil Count 2.9 X10^3/uL (2.0-7.7); Basophil# 0.01 X10^3/uL; Basophil% 0.1 % (0-1); Eosinophil# 0.44 X10^3/uL; Hematocrit 35.5 % (40-54); Hemoglobin 11.4 g/dL (13.0-16.5); Lymphocyte # 3.26 X10^3/ul (0.83-4.51); Lymphocyte % 44.6 % (19-41); Mean Corp Hgb Conc 32.1 g/dL (32-36); Mean Corpuscular Hgb 28.1 pg (27.0-32.0); Mean Corpuscular Volume 87.4 fL (80-94); Mean Platelet Vol. 10.6 fl (6.2-12.0); Monocyte# 0.72 X10^3/uL; Monocyte% 9.8 % (0-10); NRBC Flagged by Analyzer 0.3 % (0-5); Neutrophil # 2.87 X10^3/uL (2.7-7.7); Neutrophil % 39.4 % (47-70); Platelet Count 170 K/mm3 (150-450); RBC Distribution Width CV 14.2 % (11.6-14.6); RBC Distribution Width SD 45.3 fl (35.1-43.9); Red Blood Count 4.06 M/mm3 (4.6-6.2); White Blood Count 7.3 K/mm3 (4.4-11.0)
[2021-05-13 10:05] LABS: Anion Gap 3 (5-15); BUN 15 mg/dL (7-18); Calcium,Total 8.9 mg/dL (8.5-10.1); Chloride 108 mmol/L (98-107); Creatinine, Serum 0.33 mg/dL (0.70-1.30); EST Glomerular Filtration Rate 322 mL/min (>60); Est Glom Filt Rate - Afr Amer 389 mL/min (>60); Glucose 107 mg/dL (74-106); Potassium 3.8 mmol/L (3.5-5.1); Sodium Level 140 mmol/L (136-145)
== END 2021-05-22 23:59 | disposition home or self-care (01) ==
LOC: LABSPEC 09:18
PROVIDERS: Internal Medicine Infectious Disease; PCP Family Medicine; Visit Provider Internal Medicine Cardiovascular Disease
DX: J96.11 Chronic respiratory failure with hypoxia (principal); J96.12 Chronic respiratory failure with hypercapnia; D63.8 Anemia in other chronic diseases classified elsewhere; D50.9 Iron deficiency anemia, unspecified; K92.2 Gastrointestinal hemorrhage, unspecified; E87.1 Hypo-osmolality and hyponatremia; E87.6 Hypokalemia
CPT/HCPCS: 80048; 85025

== ENCOUNTER 2021-05-19 18:05 | Emergency (ER) | payer MEDICARE, BC, MEDICAID, SELFPAY ==
[2021-05-19 18:07] VITALS: BP 141/105; PULSE 75; RESP 16; TEMP 36.4; O2SAT 98; BMI 31.8
[2021-05-19 18:18] VITALS: BP 141/105; PULSE 75; RESP 16; O2SAT 96
--- NOTE | 2021-05-19 18:34 | EDS_ITS ---
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 He is nonverbal. He is total care. He is on a ventilator at night. He has a tracheostomy. He had recent Pseudomonas tracheitis and treated with IV Zosyn. Parents are concerned because of erythema. There is been no documented fever. There is no drainage. Mother has applied bacitracin ointment. There is been no increased secretions. Prior similar symptoms: No Recent Illness/Hospitalization: Yes [facility] Medical History Debility Edema History of seizure disorder Iron deficiency anemia Nonrheumatic mitral valve prolapse Obesity Pulmonary embolism on left (06/14/19) Redundant colon Thrombocytopenia Tracheostomy in place Home Medications phenobarbital 60 mg G-TUBE BID 02/19/17 [History Last Taken 04/24/20 21:00] Lactobacillus acidophilus 1 cap G-TUBE DAILY 02/04/18 [History Last Taken 04/24/20 09:00] metoclopramide HCl 5 mg/5 mL oral solution 5 mg FEEDING TUBE TID ml 09/16/18 [History Last Taken 04/24/20 21:00] lorazepam 2 mg G-TUBE Q8 PRN 10/08/18 [History Last Taken 04/24/20 22:00] Cough Assist 1 dose .ROUTE .MEDSUPPLY 12/25/18 [History Last Taken Unknown] ferrous sulfate 75 mg G-TUBE DAILY 12/25/18 [History Last Taken 04/24/20 16:00] oxygen concentrator 1 dose .ROUTE .MEDSUPPLY 12/25/18 [History Last Taken Unknown] ondansetron HCl 5 ml FEEDING TUBE DAILY PRN 05/09/19 [History Last Taken Unknown] doxazosin 2 mg G-TUBE DAILY #30 tab 07/11/19 [Rx Last Taken 04/24/20 09:00] ascorbic acid (vitamin C) 500 mg G-TUBE DAILY 08/04/19 [History Last Taken Unknown] gabapentin 250 mg G-TUBE 4X/DAY 09/26/19 [History Last Taken 04/25/20 06:00] epinephrine 0.3 mg/0.3 mL injection, auto-injector 0.3 mg IM ONCE PRN 10/24/19 [History Last Taken Unknown] calcium carbonate 500 mg FEEDING TUBE DAILY PRN 07/09/20 [History Last Taken Unknown] albuterol sulfate 2.5 mg INHALATION Q4H PRN ml 11/27/20 [History Last Taken Unknown] baclofen 5 mg/5 mL oral solution 20 mg G-TUBE Q6H 11/27/20 [History Last Taken Unknown] esomeprazole magnesium 40 mg granules delayed release for susp 40 mg G-TUBE BID ea 11/27/20 [History Last Taken Unknown] famotidine 20 mg tablet 20 mg FEEDING TUBE LUNCH 11/27/20 [History Last Taken Unknown] guaifenesin 200 mg/5 mL oral liquid 200 mg FEEDING TUBE Q4H PRN ml 11/27/20 [History Last Taken Unknown] lactose-reduced food with fiber 0.06 gram-1.2 kcal/mL oral liquid 1,000 ml G- TUBE DAILY 11/27/20 [History Last Taken Unknown] plecanatide 3 mg tablet 3 mg GT DAILY 11/27/20 [History Last Taken Unknown] simethicone 40 mg/0.6 mL oral drops,suspension 40 mg G-TUBE 4X/DAY 11/27/20 [History Last Taken Unknown] alum-mag hydroxide-simeth 20 ml FEEDING TUBE 4X/DAY 01/11/21 [History Last Taken Unknown] nystatin 1 ml BUCCAL 4X/DAY 01/11/21 [History Last Taken Unknown] betamethasone dipropionate 1 applic TOPICAL BID #45 g 05/19/21 [Rx Last Taken Unknown] Allergy/AdvReac Type Severity Reaction Status Date / Time cisapride monohydrate Allergy Rash Verified 05/19/21 18:07 [From Propulsid] codeine AdvReac hallucinati Verified 05/19/21 18:07 ons metronidazole [From Flagyl] AdvReac Rash Verified 05/19/21 18:07 morphine AdvReac Hallucinati Verified 05/19/21 18:07 ons dust Allergy Other Uncoded 05/19/21 18:07 Family History Mother Hepatitis C Hypertension Father CAD (coronary artery disease) Atrial fibrillation Hypertension H/O heart artery stent Surgical History Colostomy in place Heel cord lengthening History of colostomy History of eye surgery History of gastrostomy tube placement History of open reduction and internal fixation (ORIF) procedure History of soft tissue release Status post insertion of intrathecal baclofen pump Social History household members: family housing: house current occupational status: disabled Smoking Status: Never smoker alcohol intake: never substance use type: does not use caffeine: No ROS ROS ED Review of Systems ROS Unobtainable: due to mental status Constitutional Constitutional ED: Denies fever(s) Respiratory/Chest Respiratory/Chest: Denies dyspnea Gastrointestinal Gastrointestinal: Denies diarrhea or vomiting Integumentary Reports rash Allergic/Immunologic Allergic/Immunologic ED: Denies mouth swelling or urticaria EXAM Physical Exam Const Vital Signs: 05/19/21 18:07 05/19/21 18:18 Temperature 97.6 F L Temperature Source Axillary Pulse Rate 75 75 Respiratory Rate 16 16 Blood Pressure 141/105 H 141/105 H Blood Pressure Mean 117 117 Pulse Ox 98 96 Oxygen Delivery Method Room Air Room Air Positive well nourished, well developed and obese General Appearance ED: well developed and NAD; Negative for cyanotic, diaphoretic or pallor Nutritional Appearance: obese HEENT Reports moist mucous membranes Negative for trauma or tenderness Eyes Negative for PERRL General Eye ED: Negative for pale conjunctiva or scleral icterus Neck Neck Narrative: Tracheostomy noted. No secretions noted. Chest Wall palpation of chest normal; Negative for inspection of chest normal Chest Narrative: Full amatory with slight serous drainageThere is a deep erythematous rash that is approximately 5 to 7 cm in size with no induration, warmth. There is no fluctuance. There is no extra lymphadenopathy. There is no lymphangitis. There is also a finer erythematous rash that extends inferior and over to the left anterior chest. This blanches. There is no warmth, cong ration or fluctuance. There is no lymphangitis. The deeper erythematous rash has a rough texture to it and suspect this may represent a chemical dermatitis. The Resp normal respiratory effort and clear to auscultation bilaterally Cardio regular rate, regular rhythm, S1 normal heart sound and no murmurs Rate: other Other Details: Per parents baseline is in the 60s. Heart rate is slightly above normal. Psych Psych Narrative: Nonverbal. Contractures noted. Skin No no rashes or lesions noted and no wounds Skin Narrative: Rash previously documented General Skin Exam: Negative for jaundice or pallor Rashes: rashes noted MDM MDM MDM Narrative Medical decision making narrative: Doubt this represents a cellulitis. There may be a histamine release type reaction as well as a chemical dermatitis. Will obtain blood work to determine there is elevated white count to Lab Data Attestation: I reviewed the patient's lab results. Lab results narrative: White count and differential unremarkable. Basic metabolic panel is unremarkable. Labs: Laboratory Results - last 24 hr 05/19/21 05/19/21 19:12 19:12 WBC 6.4 RBC 4.21 L Hgb 11.7 L Hct 36.5 L MCV 86.7 MCH 27.8 MCHC 32.1 RDW Std Deviation 44.8 H RDW Coeff of [place]ilee 14.2 Plt Count 134 L MPV 10.3 Immature Gran % (Auto) 0.200 Neut % (Auto) 49.4 Lymph % (Auto) 32.4 [place] % (Auto) 8.1 Eos % (Auto) 9.4 H Baso % (Auto) 0.5 Absolute Neuts (auto) 3.2 Absolute Lymphs (auto) 2.08 Nucleated RBC % 0 Sodium 136 Potassium 4.2 Chloride 104 Carbon Dioxide 26.0 Anion Gap 6 BUN 12 Creatinine 0.37 L Estim Creat Clear Calc 189.56 Est GFR (MDRD) Af Amer 340 Est GFR (MDRD) Non-Af 281 BUN/Creatinine Ratio 32.7 H Glucose 98 Calcium 8.8 Discharge Plan Triage Chief Complaint: Cellulitis ED Provider: Dario De La Torre Dx/Rx/DC Orders Clinical Impression: Contact dermatitis, Nonrheumatic mitral valve prolapse, Edema, Chronic respiratory failure Instructions: ED Contact Dermatitis Prescriptions: New betamethasone dipropionate 0.05 % cream 1 applic topical BID Qty: 45 RF: 0 No Action epinephrine 0.3 mg/0.3 mL auto-injector 0.3 mg IM ONCE PRN (Reason: Allergic Reaction) RF: 0 albuterol sulfate 2.5 mg /3 mL (0.083 %) solution for nebulization 2.5 mg inhalation Q4H PRN (Reason: Sob &/Or Wheezing) RF: 0 guaifenesin 200 mg/5 mL liquid 200 mg feeding tube Q4H PRN (Reason: Cough) RF: 0 esomeprazole magnesium [address] for susp in packet 40 mg G-tube BID RF: 0 famotidine [Pepcid] 20 mg tablet 20 mg feeding tube LUNCH RF: 0 simethicone 40 mg/0.6 mL drops,suspension 40 mg G-tube 4X/DAY RF: 0 metoclopramide HCl 5 mg/5 mL solution 5 mg feeding tube TID RF: 0 phenobarbital 20 MG/5 ML elixir 60 mg G-tube BID RF: 0 Lactobacillus acidophilus 1 EACH capsule 1 cap G-tube DAILY RF: 0 lorazepam 1 MG tablet 2 mg G-tube Q8 PRN (Reason: Agitation) RF: 0 ferrous sulfate 15 MG/ML drops 75 mg G-tube DAILY RF: 0 Cough Assist 1 dose .Route .MEDSUPPLY RF: 0 oxygen concentrator 1 dose .Route .MEDSUPPLY RF: 0 ondansetron HCl 4 MG tablet 5 ml feeding tube DAILY PRN (Reason: Nausea) RF: 0 baclofen 5 mg/5 mL solution 20 mg G-tube Q6H RF: 0 lactose-reduced food with fibr 0.06 gram-1.2 kcal/mL liquid 1,000 ml G-tube DAILY RF: 0 doxazosin 2 mg tablet 2 mg G-tube DAILY Qty: 30 RF: 0 ascorbic acid (vitamin C) 500 MG/5 ML syrup 500 mg G-tube DAILY RF: 0 gabapentin 250 MG/5 ML solution 250 mg G-tube 4X/DAY RF: 0 plecanatide 3 mg tablet 3 mg GT DAILY RF: 0 nystatin 100,000 unit/mL Suspension 1 ml BUCCAL 4X/DAY RF: 0 alum-mag hydroxide-simeth 200-200-20 mg/5 mL Suspension 20 ml feeding tube 4X/DAY RF: 0 calcium carbonate 500 mg/5 mL (1,250 mg/5 mL) suspension 500 mg feeding tube DAILY PRN (Reason: health mainten) RF: 0 Primary Care Provider: Timmy Conn Referrals: Timmy Conn MD [Primary Care Provider] - 1 Week if not improving Disposition Disposition: Home, Self Care
[2021-05-19 19:26] LABS: Absolute Lymphocyte Count 2.08 X10^3/uL (0.83-4.51); Absolute Neutrophil Count 3.2 X10^3/uL (2.0-7.7); Basophil# 0.03 X10^3/uL; Basophil% 0.5 % (0-1); Eosinophils% 9.4 % (0-5); Hematocrit 36.5 % (40-54); Hemoglobin 11.7 g/dL (13.0-16.5); Lymphocyte # 2.08 X10^3/ul (0.83-4.51); Lymphocyte % 32.4 % (19-41); Mean Corp Hgb Conc 32.1 g/dL (32-36); Mean Corpuscular Hgb 27.8 pg (27.0-32.0); Mean Corpuscular Volume 86.7 fL (80-94); Mean Platelet Vol. 10.3 fl (6.2-12.0); Monocyte# 0.52 X10^3/uL; Monocyte% 8.1 % (0-10); NRBC Flagged by Analyzer 0 % (0-5); Neutrophil # 3.17 X10^3/uL (2.7-7.7); Neutrophil % 49.4 % (47-70); POSITIVE COUNT YES; Platelet Count 134 K/mm3 (150-450); RBC Distribution Width CV 14.2 % (11.6-14.6); RBC Distribution Width SD 44.8 fl (35.1-43.9); Red Blood Count 4.21 M/mm3 (4.6-6.2); White Blood Count 6.4 K/mm3 (4.4-11.0)
[2021-05-19 19:29] LABS: Differential Indicated SCAN CRITERIA MET
[2021-05-19 19:39] LABS: Anion Gap 6 (5-15); BUN 12 mg/dL (7-18); BUN/Creat Ratio 32.7 RATIO (10-20); Calcium,Total 8.8 mg/dL (8.5-10.1); Chloride 104 mmol/L (98-107); Creatinine, Serum 0.37 mg/dL (0.70-1.30); EST Glomerular Filtration Rate 281 mL/min (>60); Est Glom Filt Rate - Afr Amer 340 mL/min (>60); Estimated Creatinine Clearance 189.56 ml/min; Glucose 98 mg/dL (74-106); Potassium 4.2 mmol/L (3.5-5.1); Sodium Level 136 mmol/L (136-145)
[2021-05-19 20:24] LABS: Anisocytosis RARE; Platelet Estimate SLT DEC (ADEQ); Red Cell Morphology N CHROM NORMAL (NORM C&C)
[2021-05-19 21:15] VITALS: BP 140/72; PULSE 79; RESP 15; O2SAT 98
== END 2021-05-19 21:16 | disposition home or self-care (01) ==
PROVIDERS: Emergency Provider Emergency Medicine; PCP Family Medicine; Visit Provider Emergency Medicine
DX: L25.9 Unspecified contact dermatitis, unspecified cause (principal); Z93.0 Tracheostomy status; J96.10 Chronic respiratory failure, unspecified whether with hypoxia or hypercapnia; R60.9 Edema, unspecified; I34.1 Nonrheumatic mitral (valve) prolapse; Z79.899 Other long term (current) drug therapy
CPT/HCPCS: 80048; 85025; 99284; A4216

== ENCOUNTER 2021-05-20 14:04 | Outpatient (CLI) | payer MEDICARE, BC, MEDICAID, SELFPAY ==
--- NOTE | 2021-05-20 14:08 | RAD_ITS ---
STUDY: X-RAY - ACUTE ABDOMINAL SERIES REASON FOR EXAM: Male, 41 years old. ABDOMINAL PAIN TECHNIQUE: Single view of the chest. Supine, 4 view(s) of the abdomen were obtained. COMPARISON: CT of 01/11/2021. FINDINGS: Limited inspiratory effort with crowding of the basilar bronchovascular markings. Minimal bibasilar atelectasis. Tracheostomy tube in place. Right jugular venous catheter in place with its tip projected over the right atrium. Heart size is mildly enlarged. Normal mediastinum and rachelle. Normal visualized pulmonary arteries. Normal visualized aortic arch and descending thoracic aorta. Soft tissue prominence noted in the lower neck region, greater to the left of midline. Scattered gas noted within nondistended large and small bowel loops. Left lower quadrant ostomy again noted. No pathologically distended bowel loops or significant air-fluid levels identified. A curvilinear tubular device is again projected over the right lower quadrant and this was present on prior CT. Percutaneous gastrostomy tube again projected over the left upper quadrant. The stomach is decompressed. Osseous structures are demineralized. Chronic lumbar levoscoliosis. RAD/Acute Abdomen Inc Chest IMPRESSION: No radiographic evidence of acute intra-abdominal pathology. Electronically Signed: Alec Boyce MD at 0:24 EDT ,
== END 2021-05-20 23:59 | disposition home or self-care (01) ==
LOC: MTRAD 14:05
PROVIDERS: PCP Family Medicine; Referring Provider Family Medicine; Visit Provider Family Medicine
DX: R10.9 Unspecified abdominal pain (principal)
CPT/HCPCS: 74022

== ENCOUNTER 2021-05-30 16:49 | Outpatient (CLI) | payer MEDICARE, BC, MEDICAID, SELFPAY ==
--- NOTE | 2021-05-30 17:10 | CT_ITS ---
INDICATION: neck mass EXAMINATION: CT Soft Tissue Neck W/ Contrast Injection TECHNIQUE: Helically acquired images were obtained of the neck following IV contrast. A radiation dose optimization technique was used for this scan. IV Contrast dosage and agent: 100 cc [id number] COMPARISON: None. FINDINGS: NASOPHARYNX: Unremarkable. SUPRAHYOID NECK: Unremarkable oropharynx, oral cavity, parapharyngeal space, and retropharyngeal space. INFRAHYOID NECK: Unremarkable larynx, hypopharynx, and supraglottis. THYROID: No focal lesions. SALIVARY GLANDS: Unremarkable. LYMPH NODES: No cervical or supraclavicular lymphadenopathy. VASCULAR STRUCTURES: Unremarkable. VISUALIZED PORTIONS OF THE ORBITS, PARANASAL SINUSES, MASTOID AIR CELLS AND SKULL BASE: Sinonasal polyp versus retention cyst in the right maxillary sinus.. BONES: Unremarkable. THORACIC INLET: Diffuse groundglass opacities. Endotracheal tube is present. CT/Soft Tissue Neck WITH Contrast IMPRESSION: No evidence of neck mass. Diffuse ground glass opacities in the lungs may represent infection and/or edema. Sinonasal polyp versus retention cyst in the right maxillary sinus.. Electronically Signed: Dale Cervantes MD at 17:24 EDT ,
--- NOTE | 2021-05-30 17:54 | NURSING ---
RIGHT CHEST PORT ACCESSED USING #20 POWER PORT, STERILE TECHNIQUE USED. IMMEDIATE RETURN OF BLOOD, FLUSHED WITH 10ML STERILE SALINE. ACCESSED PORT USED FOR CT CONTRAST. PORT FLUSHED PER PROTOCOL USING HEPARIN, NEEDLE REMOVED.DRY STERILE DRESSING APPLIED TO SITE.
== END 2021-05-30 23:59 | disposition home or self-care (01) ==
LOC: CT 16:53
PROVIDERS: PCP Family Medicine; Referring Provider Family Medicine; Visit Provider Family Medicine
DX: R22.1 Localized swelling, mass and lump, neck (principal)
CPT/HCPCS: 70491; Q9967

== ENCOUNTER 2021-06-11 10:39 | Outpatient (RCR) | payer MEDICARE, BC, MEDICAID, SELFPAY ==
[2021-06-11 10:55] LABS: Absolute Lymphocyte Count 2.71 X10^3/uL (0.83-4.51); Absolute Neutrophil Count 2.6 X10^3/uL (2.0-7.7); Basophil# 0.03 X10^3/uL; Basophil% 0.5 % (0-1); Eosinophil# 0.35 X10^3/uL; Eosinophils% 5.6 % (0-5); Hematocrit 35.3 % (40-54); Hemoglobin 11.4 g/dL (13.0-16.5); Lymphocyte # 2.71 X10^3/ul (0.83-4.51); Mean Corp Hgb Conc 32.3 g/dL (32-36); Mean Corpuscular Hgb 28.1 pg (27.0-32.0); Mean Corpuscular Volume 87.2 fL (80-94); Mean Platelet Vol. 10.4 fl (6.2-12.0); Monocyte% 9.5 % (0-10); NRBC Flagged by Analyzer 0 % (0-5); Neutrophil % 41.2 % (47-70); Platelet Count 185 K/mm3 (150-450); RBC Distribution Width SD 44.3 fl (35.1-43.9); Red Blood Count 4.05 M/mm3 (4.6-6.2); White Blood Count 6.3 K/mm3 (4.4-11.0)
[2021-06-11 11:05] LABS: Anion Gap 5 (5-15); BUN 19 mg/dL (7-18); BUN/Creat Ratio 71.4 RATIO (10-20); Calcium,Total 8.7 mg/dL (8.5-10.1); Chloride 103 mmol/L (98-107); Creatinine, Serum 0.27 mg/dL (0.70-1.30); EST Glomerular Filtration Rate 407 mL/min (>60); Est Glom Filt Rate - Afr Amer 492 mL/min (>60); Glucose 82 mg/dL (74-106); Potassium 4.1 mmol/L (3.5-5.1); Sodium Level 140 mmol/L (136-145)
== END 2021-06-21 23:59 ==
LOC: LABSPEC 10:39
PROVIDERS: PCP Family Medicine; Referring Provider Internal Medicine Cardiovascular Disease; Visit Provider Internal Medicine Cardiovascular Disease
DX: E87.1 Hypo-osmolality and hyponatremia (principal); E87.6 Hypokalemia; D63.8 Anemia in other chronic diseases classified elsewhere; D50.9 Iron deficiency anemia, unspecified; K92.2 Gastrointestinal hemorrhage, unspecified; J96.11 Chronic respiratory failure with hypoxia; J96.12 Chronic respiratory failure with hypercapnia
CPT/HCPCS: 80048; 85025

== ENCOUNTER 2021-07-11 09:18 | Outpatient (RCR) | payer MEDICARE, BC, MEDICAID, SELFPAY ==
[2021-07-11 12:22] LABS: Absolute Lymphocyte Count 2.56 X10^3/uL (0.83-4.51); Absolute Neutrophil Count 2.1 X10^3/uL (2.0-7.7); Basophil# 0.02 X10^3/uL; Basophil% 0.4 % (0-1); Eosinophil# 0.33 X10^3/uL; Eosinophils% 5.9 % (0-5); Hematocrit 33.9 % (40-54); Hemoglobin 10.8 g/dL (13.0-16.5); Lymphocyte # 2.56 X10^3/ul (0.83-4.51); Mean Corp Hgb Conc 31.9 g/dL (32-36); Mean Corpuscular Hgb 28.2 pg (27.0-32.0); Mean Corpuscular Volume 88.5 fL (80-94); Mean Platelet Vol. 10.9 fl (6.2-12.0); Monocyte# 0.54 X10^3/uL; Monocyte% 9.7 % (0-10); NRBC Flagged by Analyzer 0 % (0-5); Neutrophil # 2.12 X10^3/uL (2.7-7.7); Platelet Count 163 K/mm3 (150-450); RBC Distribution Width CV 13.7 % (11.6-14.6); RBC Distribution Width SD 44.5 fl (35.1-43.9); Red Blood Count 3.83 M/mm3 (4.6-6.2); White Blood Count 5.6 K/mm3 (4.4-11.0)
[2021-07-11 12:43] LABS: Anion Gap 6 (5-15); BUN 22 mg/dL (7-18); BUN/Creat Ratio 79.4 RATIO (10-20); Calcium,Total 8.3 mg/dL (8.5-10.1); Chloride 105 mmol/L (98-107); Creatinine, Serum 0.28 mg/dL (0.70-1.30); EST Glomerular Filtration Rate 388 mL/min (>60); Est Glom Filt Rate - Afr Amer 470 mL/min (>60); Glucose 85 mg/dL (74-106); Potassium 3.7 mmol/L (3.5-5.1); Sodium Level 139 mmol/L (136-145)
== END 2021-07-22 23:59 ==
LOC: LABSPEC 09:18
PROVIDERS: PCP Family Medicine; Referring Provider Internal Medicine Cardiovascular Disease; Visit Provider Internal Medicine Cardiovascular Disease
DX: R00.0 Tachycardia, unspecified (principal); D69.6 Thrombocytopenia, unspecified; Z86.711 Personal history of pulmonary embolism; I34.1 Nonrheumatic mitral (valve) prolapse; D50.9 Iron deficiency anemia, unspecified; J96.10 Chronic respiratory failure, unspecified whether with hypoxia or hypercapnia; G80.9 Cerebral palsy, unspecified; R60.9 Edema, unspecified
CPT/HCPCS: 80048; 85025

== ENCOUNTER → 2021-08-08 | Outpatient (CLI) | payer MEDICARE, BC, MEDICAID, SELFPAY | END | disposition home or self-care (01) | LOC: LABSPEC 11:14 | PROVIDERS: PCP Family Medicine; Referring Provider Internal Medicine Cardiovascular Disease; Visit Provider Internal Medicine Cardiovascular Disease | DX: R00.0 Tachycardia, unspecified (principal); I26.99 Other pulmonary embolism without acute cor pulmonale; G80.9 Cerebral palsy, unspecified; J96.10 Chronic respiratory failure, unspecified whether with hypoxia or hypercapnia; D69.6 Thrombocytopenia, unspecified; I34.1 Nonrheumatic mitral (valve) prolapse; D50.9 Iron deficiency anemia, unspecified; R60.9 Edema, unspecified ==

== ENCOUNTER → 2021-08-12 | Outpatient (CLI) | payer MEDICARE, BC, MEDICAID, SELFPAY ==
[2021-08-12 12:53] LABS: Absolute Lymphocyte Count 1.84 X10^3/uL (0.83-4.51); Absolute Neutrophil Count 2.4 X10^3/uL (2.0-7.7); Basophil# 0.01 X10^3/uL; Basophil% 0.2 % (0-1); Eosinophil# 0.23 X10^3/uL; Eosinophils% 4.6 % (0-5); Hematocrit 35.6 % (40-54); Hemoglobin 11.5 g/dL (13.0-16.5); Lymphocyte # 1.84 X10^3/ul (0.83-4.51); Lymphocyte % 36.8 % (19-41); Mean Corp Hgb Conc 32.3 g/dL (32-36); Mean Corpuscular Hgb 28.1 pg (27.0-32.0); Monocyte# 0.47 X10^3/uL; Monocyte% 9.4 % (0-10); NRBC Flagged by Analyzer 0 % (0-5); Neutrophil # 2.44 X10^3/uL (2.7-7.7); Neutrophil % 48.8 % (47-70); Platelet Count 151 K/mm3 (150-450); RBC Distribution Width CV 14.1 % (11.6-14.6); RBC Distribution Width SD 44.2 fl (35.1-43.9); Red Blood Count 4.09 M/mm3 (4.6-6.2)
[2021-08-12 13:05] LABS: Anion Gap 7 (5-15); BUN 16 mg/dL (7-18); BUN/Creat Ratio 50.8 RATIO (10-20); Chloride 103 mmol/L (98-107); Creatinine, Serum 0.32 mg/dL (0.70-1.30); EST Glomerular Filtration Rate 334 mL/min (>60); Est Glom Filt Rate - Afr Amer 405 mL/min (>60); Glucose 90 mg/dL (74-106); Potassium 3.8 mmol/L (3.5-5.1); Sodium Level 139 mmol/L (136-145)
== END | disposition home or self-care (01) ==
LOC: LABSPEC 12:03
PROVIDERS: PCP Family Medicine; Referring Provider Internal Medicine Cardiovascular Disease; Visit Provider Internal Medicine Cardiovascular Disease
DX: R00.0 Tachycardia, unspecified (principal); I26.99 Other pulmonary embolism without acute cor pulmonale; G80.9 Cerebral palsy, unspecified; J96.10 Chronic respiratory failure, unspecified whether with hypoxia or hypercapnia; D69.6 Thrombocytopenia, unspecified; I34.1 Nonrheumatic mitral (valve) prolapse; D50.9 Iron deficiency anemia, unspecified; R60.9 Edema, unspecified
CPT/HCPCS: 80048; 85025

== ENCOUNTER 2021-09-10 10:22 | Outpatient (RCR) | payer MEDICARE, BC, MEDICAID, SELFPAY ==
[2021-09-10 10:55] LABS: Absolute Lymphocyte Count 2.63 X10^3/uL (0.83-4.51); Absolute Neutrophil Count 3.5 X10^3/uL (2.0-7.7); Basophil# 0.02 X10^3/uL; Basophil% 0.3 % (0-1); Eosinophil# 0.28 X10^3/uL; Eosinophils% 3.9 % (0-5); Hematocrit 35.8 % (40-54); Hemoglobin 11.3 g/dL (13.0-16.5); Lymphocyte # 2.63 X10^3/ul (0.83-4.51); Lymphocyte % 36.9 % (19-41); Mean Corp Hgb Conc 31.6 g/dL (32-36); Mean Corpuscular Hgb 28.3 pg (27.0-32.0); Mean Corpuscular Volume 89.5 fL (80-94); Mean Platelet Vol. 10.7 fl (6.2-12.0); Monocyte# 0.73 X10^3/uL; Monocyte% 10.3 % (0-10); NRBC Flagged by Analyzer 0 % (0-5); Neutrophil # 3.45 X10^3/uL (2.7-7.7); Neutrophil % 48.5 % (47-70); Platelet Count 177 K/mm3 (150-450); RBC Distribution Width CV 14.6 % (11.6-14.6); RBC Distribution Width SD 47.7 fl (35.1-43.9); White Blood Count 7.1 K/mm3 (4.4-11.0)
[2021-09-10 11:10] LABS: BUN 20 mg/dL (7-18); BUN/Creat Ratio 71.9 RATIO (10-20); Creatinine, Serum 0.28 mg/dL (0.70-1.30); EST Glomerular Filtration Rate 386 mL/min (>60); Est Glom Filt Rate - Afr Amer 467 mL/min (>60); Glucose 80 mg/dL (74-106)
[2021-09-10 11:11] LABS: Anion Gap 6 (5-15); Chloride 102 mmol/L (98-107); Iron 59 ug/dL (65-175); Potassium 4.1 mmol/L (3.5-5.1); Sodium Level 138 mmol/L (136-145)
== END 2021-09-21 23:59 ==
LOC: LABSPEC 10:22
PROVIDERS: PCP Family Medicine; Referring Provider Internal Medicine Cardiovascular Disease; Visit Provider Internal Medicine Cardiovascular Disease
DX: R00.0 Tachycardia, unspecified (principal); D69.6 Thrombocytopenia, unspecified; Z86.711 Personal history of pulmonary embolism; I34.1 Nonrheumatic mitral (valve) prolapse; D50.9 Iron deficiency anemia, unspecified; J96.10 Chronic respiratory failure, unspecified whether with hypoxia or hypercapnia; G80.9 Cerebral palsy, unspecified; R60.9 Edema, unspecified
CPT/HCPCS: 80048; 83540; 85025

== ENCOUNTER → 2021-09-11 | Outpatient (CLI) | payer MEDICARE, BC, MEDICAID, SELFPAY ==
--- NOTE | 2021-09-11 13:38 | ECHOD_ITS ---
Reason For Study: Arrhythmia Procedure This was a 2D Doppler, Color Flow transthoracic echocardiogram. Technically difficult apical images. Exam performed in department. Echo done with patient reclined back in wheelchair. Left Ventricle Normal LV size. Left ventricular systolic function is normal. The estimated ejection fraction is 55 %. Stage 1 diastolic dysfunction. No regional wall motion abnormalities noted. Right Ventricle Normal RV size. Normal systolic function. Atria Normal left atrium. Normal right atrium. Mitral Valve Bileaflet diffuse mitral valve thickening. Bileaflet mitral valve prolapse. Tricuspid Valve Normal tricuspid valve. Aortic Valve Trisinus/trileaflet aortic valve. Pulmonic Valve Normal pulmonic valve. Great Vessels Normal aortic root. The pulmonary artery is normal size. Normal inferior vena cava. Pericardium/Pleural No pericardial effusion. MMode/2D Measurements & Calculations LVIDd: 5.5 cm IVSd: 0.74 cm Ao root diam: 2.7 cm LVIDs: 3.6 cm LVPWd: 0.89 cm LA dimension: 4.0 cm FS: 34.2 % LAV(MOD-bp): 40.4 ml LA A4 area: 14.7 cm2 LAV(MOD-bp) Indexed: 23.8 ml/m2 LAV(MOD-sp2): 46.5 ml LAV(MOD-sp4): 34.4 ml Time Measurements MV dec time: 0.21 sec Doppler Measurements & Calculations MV E max merrill: 45.0 cm/sec Lat Peak E' Merrill: 6.0 cm/sec Med Peak E' Merrill: 4.4 cm/sec MV A max merrill: 74.4 cm/sec E/E' lat: 7.5 E/E' med: 10.3 MV E/A: 0.60 MV V2 max: 64.8 cm/sec MV P1/2t max merrill: 58.2 cm/sec Ao V2 max: 106.5 cm/sec MV max P.7 mmHg MV P1/2t: 102.6 msec Ao max P.5 mmHg MV V2 mean: 41.0 cm/sec MV dec slope: 166.0 cm/sec2 MV mean P.76 mmHg MVA(P1/2t): 2.1 cm2 MV V2 VTI: 22.2 cm LV V1 max: 85.5 cm/sec PA V2 max: 104.1 cm/sec TR max merrill: 171.4 cm/sec LV V1 max P.9 mmHg TR max P.8 mmHg ECHO/Echo Complete Interpretation Summary Normal LV size. Left ventricular systolic function is normal. The estimated ejection fraction is 55 %. Bileaflet diffuse mitral valve thickening. Bileaflet mitral valve prolapse. Stage 1 diastolic dysfunction. Ordering Physician: Maury Waite Referring Physician: Timmy Conn Performed By: Joshua Sheriff RCS
== END | disposition home or self-care (01) ==
LOC: CVS 13:37
PROVIDERS: PCP Family Medicine; Referring Provider Internal Medicine Cardiovascular Disease; Visit Provider Internal Medicine Cardiovascular Disease
DX: I34.1 Nonrheumatic mitral (valve) prolapse (principal)
CPT/HCPCS: 93306

== ENCOUNTER 2021-11-03 11:48 | Outpatient (RCR) | payer MEDICARE, BC, MEDICAID, SELFPAY ==
[2021-11-03 12:24] LABS: Absolute Lymphocyte Count 2.54 X10^3/uL (0.83-4.51); Absolute Neutrophil Count 3.2 X10^3/uL (2.0-7.7); Basophil# 0.03 X10^3/uL; Basophil% 0.5 % (0-1); Eosinophil# 0.27 X10^3/uL; Eosinophils% 4.1 % (0-5); Hematocrit 36.1 % (40-54); Hemoglobin 11.9 g/dL (13.0-16.5); Lymphocyte # 2.54 X10^3/ul (0.83-4.51); Lymphocyte % 38.4 % (19-41); Mean Corpuscular Hgb 29.1 pg (27.0-32.0); Mean Corpuscular Volume 88.3 fL (80-94); Mean Platelet Vol. 10.1 fl (6.2-12.0); Monocyte# 0.61 X10^3/uL; Monocyte% 9.2 % (0-10); NRBC Flagged by Analyzer 0 % (0-5); Neutrophil # 3.15 X10^3/uL (2.7-7.7); Neutrophil % 47.6 % (47-70); Platelet Count 215 K/mm3 (150-450); RBC Distribution Width CV 13.5 % (11.6-14.6); Red Blood Count 4.09 M/mm3 (4.6-6.2); White Blood Count 6.6 K/mm3 (4.4-11.0)
[2021-11-03 12:34] LABS: Anion Gap 9 (5-15); BUN 17 mg/dL (7-18); BUN/Creat Ratio 47.9 RATIO (10-20); Calcium,Total 8.9 mg/dL (8.5-10.1); Chloride 102 mmol/L (98-107); Creatinine, Serum 0.36 mg/dL (0.70-1.30); EST Glomerular Filtration Rate 291 mL/min (>60); Est Glom Filt Rate - Afr Amer 352 mL/min (>60); Glucose 98 mg/dL (74-106); Potassium 3.6 mmol/L (3.5-5.1); Sodium Level 138 mmol/L (136-145)
== END 2021-11-21 23:59 ==
LOC: LABSPEC 11:48
PROVIDERS: PCP Family Medicine; Referring Provider Internal Medicine Cardiovascular Disease; Visit Provider Internal Medicine Cardiovascular Disease
DX: D50.9 Iron deficiency anemia, unspecified; D63.8 Anemia in other chronic diseases classified elsewhere; K92.2 Gastrointestinal hemorrhage, unspecified; J96.11 Chronic respiratory failure with hypoxia; J96.12 Chronic respiratory failure with hypercapnia; E87.1 Hypo-osmolality and hyponatremia; E87.6 Hypokalemia
CPT/HCPCS: 80048; 85025

== ENCOUNTER 2021-11-30 11:03 | Inpatient (IN) | payer MEDICARE, BC, MEDICAID, SELFPAY ==
[2021-11-30] VITALS (12 sets, daily range): BP systolic 109–138; BP diastolic 69–81; PULSE 58–104; RESP 14–24; TEMP 35.8–36.6; O2SAT 93–98; BMI 53.1; BMI 32.2
--- NOTE | 2021-11-30 11:26 | RAD_ITS ---
STUDY: X-RAY CHEST REASON FOR EXAM: Male, 41 years old. Cough TECHNIQUE: Single AP portable view of the chest. COMPARISON: May 20, 2021 chest x-ray FINDINGS: The lungs are underexpanded. There is a visualized tracheostomy tube. There is a right-sided Port-A-Cath tip is in the superior vena cava. The lungs are underexpanded. There is no visible focal infiltrate or significant change since prior study. Normal size heart. Normal mediastinum and rachelle. Normal visualized pulmonary arteries. Normal visualized aortic arch and descending thoracic aorta. Normal visualized thoracic spine. Normal visualized ribs, clavicles, and shoulders. There is no demonstrated abnormality of the visualized soft tissue structures of the upper abdomen. RAD/Chest 1 View (Portable) IMPRESSION: The lungs are underexpanded. There is a visualized tracheostomy tube. There is a right-sided Port-A-Cath tip is in the superior vena cava. The lungs are underexpanded. There is no visible focal infiltrate or significant change since prior study Electronically Signed: Jaylin Servin MD at 11:56 EDT ,
--- NOTE | 2021-11-30 11:39 | EDS_ITS ---
HPI <REYNA Scott - Last Filed: 11/30/21 13:35> History of Present Illness Chief Complaint: Shortness of Breath Narrative Narrative: 41-year-old male with history of cerebral palsy who uses oxygen during the day, ventilation at night, presents to the emergency department with his parents for low pulse oxygenation last evening. Per the mother, the patient's pulse ox was in the 84 to 85% range, per the mother, the lips were turning bluish. This morning, the patient was acting more appropriate. Patient's vital signs are stable here. Parents take full care of the patient at home and are here for evaluation. Denies any recent fevers or chills. Denies any recent cough or sick contacts. PFS <REYNA Scott - Last Filed: 11/30/21 13:35> [facility] Medical History Acute dyspnea Cerebral palsy Debility Edema History of seizure disorder Iron deficiency anemia Nonrheumatic mitral valve prolapse Obesity Pulmonary embolism on left (06/14/19) Redundant colon Thrombocytopenia Tracheostomy in place Home Medications phenobarbital 20 mg/5 mL (4 mg/mL) oral elixir 60 mg G-tube BID pain 02/19/17 [History Last Taken 04/24/20 21:00] Lactobacillus acidophilus 1 cap G-tube DAILY gut health 02/04/18 [History Last Taken 04/24/20 09:00] metoclopramide HCl 5 mg/5 mL oral solution 5 mg feeding tube TID thrush 09/16/18 [History Last Taken 04/24/20 21:00] lorazepam 1 mg tablet 2 mg G-tube Q8 PRN Agitation 10/08/18 [History Last Taken 04/24/20 22:00] Cough Assist 1 dose .Route .MEDSUPPLY assist in clearing secretions 12/25/18 [History Last Taken Unknown] ferrous sulfate 15 mg iron (75 mg)/mL oral drops 75 mg G-tube DAILY supplement 12/25/18 [History Last Taken 04/24/20 16:00] oxygen concentrator 1 dose .Route .MEDSUPPLY second unit, 4 LPM cont all modalities 12/25/18 [History Last Taken Unknown] ondansetron HCl 4 mg tablet 5 ml feeding tube DAILY PRN Nausea 05/09/19 [History Last Taken Unknown] doxazosin 2 mg tablet 2 mg G-tube DAILY #30 tabs 07/11/19 [Rx Last Taken 04/24/20 09:00] ascorbic acid (vitamin C) 500 mg/5 mL oral syrup 500 mg G-tube DAILY 08/04/19 [History Last Taken Unknown] gabapentin 250 mg/5 mL oral solution 250 mg G-tube 4X/DAY Check with primary doctor 09/26/19 [History Last Taken 04/25/20 06:00] epinephrine 0.3 mg/0.3 mL injection, auto-injector 0.3 mg IM ONCE PRN Allergic Reaction 10/24/19 [History Last Taken Unknown] calcium carbonate 500 mg/5 mL calcium (1,250 mg/5 mL) oral suspension 500 mg feeding tube DAILY PRN health mainten 07/09/20 [History Last Taken Unknown] albuterol sulfate 2.5 mg/3 mL (0.083 %) solution for nebulization 2.5 mg inhalation Q4H PRN Sob &/Or Wheezing 11/27/20 [History Last Taken Unknown] baclofen 5 mg/5 mL oral solution 20 mg G-tube Q6H Spasticity 11/27/20 [History Last Taken Unknown] esomeprazole magnesium 40 mg granules delayed release for susp 40 mg G-tube BID 11/27/20 [History Last Taken Unknown] famotidine 20 mg tablet (Pepcid) 20 mg feeding tube LUNCH 11/27/20 [History Last Taken Unknown] guaifenesin 200 mg/5 mL oral liquid 200 mg feeding tube Q4H PRN Cough 11/27/20 [History Last Taken Unknown] lactose-reduced food with fiber 0.06 gram-1.2 kcal/mL oral liquid 1,000 ml G- tube DAILY Check with primary doctor 11/27/20 [History Last Taken Unknown] plecanatide 3 mg tablet 3 mg G-tube DAILY Check with primary doctor 11/27/20 [History Last Taken Unknown] simethicone 40 mg/0.6 mL oral drops,suspension 40 mg G-tube 4X/DAY gas 11/27/20 [History Last Taken Unknown] aluminum-mag hydroxide-simethicone 200 mg-200 mg-20 mg/5 mL oral susp 20 ml feeding tube 4X/DAY 01/11/21 [History Last Taken Unknown] nystatin 100,000 unit/mL oral suspension 1 ml buccal 4X/DAY 01/11/21 [History Last Taken Unknown] betamethasone dipropionate 0.05 % topical cream 1 applic topical BID #45 grams 05/19/21 [Rx Last Taken Unknown] Allergy/AdvReac Type Severity Reaction Status Date / Time cisapride monohydrate Allergy Rash Verified 11/30/21 11:10 [From Propulsid] house dust Allergy NEEDS Verified 11/30/21 11:10 FOLLOW-UP codeine AdvReac hallucinati Verified 11/30/21 11:10 ons metronidazole [From Flagyl] AdvReac Rash Verified 11/30/21 11:10 morphine AdvReac Hallucinati Verified 11/30/21 11:10 ons Family History Mother Hepatitis C Hypertension Father CAD (coronary artery disease) Atrial fibrillation Hypertension H/O heart artery stent Surgical History Colostomy in place Heel cord lengthening History of colostomy History of eye surgery History of gastrostomy tube placement History of open reduction and internal fixation (ORIF) procedure History of soft tissue release Status post insertion of intrathecal baclofen pump Social History household members: family housing: house current occupational status: disabled Smoking Status: Never smoker alcohol intake: never substance use type: does not use caffeine: No ROS <REYNA Scott - Last Filed: 11/30/21 13:35> ROS ED ROS Narrative Due to the patient's illness, review of symptoms cannot be completed. EXAM <REYNA Scott - Last Filed: 11/30/21 13:35> Physical Exam Narrative Exam Narrative: Vital signs reviewed. Patient looks well, patient appears nontoxic, vital signs are stable. Patient is on mechanical ventilation, pulse oxygenation is ranging from 98 to 100%. HEET: Head normocephalic atraumatic, TMs clear bilaterally. Posterior pharynx is clear, dry mucous membranes. Nares clear bilaterally. Patient does have his tongue out however this is chronic for the patient. He does smile when spoken to. Neck: Supple with no lymphadenopathy or tenderness. No signs of meningismus, negative jolt sign. Cardiac: Regular rate and rhythm no murmurs gallops or rubs, equal peripheral pulses bilaterally. Respiratory: Lungs clear to auscultation bilaterally patient does have some crackles to the upper lobes have this could be congestion. No chest tenderness. Abdomen: Soft, nontender, nondistended. No abdominal bruit or pulsatile masses. No hepatosplenomegaly Extremities: No peripheral edema, no signs of gross trauma or deformity. Active full range of motion of all extremities. Neuro: Cranial nerves II through XII intact, no focal neurological deficits. Skin: Clean dry and intact with no rash, purpura, petechiae, vesicles or pustules. Backs/flank: No CVA tenderness, no midline spinal tenderness, no deformity. Psych: Normal mood and affect. No SI, HI or acute psychosis. Const Vital Signs: 11/30/21 11:05 11/30/21 11:11 11/30/21 12:19 Temperature 97.6 F L Temperature Source Temporal Pulse Rate 85 85 Respiratory Rate 14 24 H Respiratory Effort Mechanically Ventilated Respiratory Depth Normal Respiratory Pattern Normal Blood Pressure 128/81 H 131/79 H Blood Pressure Mean 96 96 Pulse Ox 98 93 Oxygen Delivery Method Ambu-Bag Mechanical Ventilator Mechanical Ventilator Oxygen Flow Rate (L/min) 12 4 11/30/21 13:03 Temperature Temperature Source Pulse Rate 104 H Respiratory Rate 21 H Respiratory Effort Respiratory Depth Respiratory Pattern Blood Pressure 138/81 H Blood Pressure Mean 100 Pulse Ox 95 Oxygen Delivery Method Mechanical Ventilator Oxygen Flow Rate (L/min) <Dayo Jo MD - Last Filed: 11/30/21 13:58> Physical Exam Const Vital Signs: 11/30/21 11:05 11/30/21 11:11 11/30/21 12:19 Temperature 97.6 F L Temperature Source Temporal Pulse Rate 85 85 Respiratory Rate 14 24 H Respiratory Effort Mechanically Ventilated Respiratory Depth Normal Respiratory Pattern Normal Blood Pressure 128/81 H 131/79 H Blood Pressure Mean 96 96 Pulse Ox 98 93 Oxygen Delivery Method Ambu-Bag Mechanical Ventilator Mechanical Ventilator Oxygen Flow Rate (L/min) 12 4 11/30/21 13:03 Temperature Temperature Source Pulse Rate 104 H Respiratory Rate 21 H Respiratory Effort Respiratory Depth Respiratory Pattern Blood Pressure 138/81 H Blood Pressure Mean 100 Pulse Ox 95 Oxygen Delivery Method Mechanical Ventilator Oxygen Flow Rate (L/min) MDM <REYNA Scott - Last Filed: 11/30/21 13:35> MDM Lab Data Labs: Laboratory Results - last 24 hr 11/30/21 11/30/21 12:10 12:10 WBC 6.1 RBC 4.31 L Hgb 12.0 L Hct 37.4 L MCV 86.8 MCH 27.8 MCHC 32.1 RDW Std Deviation 41.7 RDW Coeff of Emilee 13.2 Plt Count 166 MPV 9.8 Immature Gran % (Auto) 0.200 Neut % (Auto) 58.6 Lymph % (Auto) 25.6 [place] % (Auto) 10.2 H Eos % (Auto) 5.1 H Baso % (Auto) 0.3 Absolute Neuts (auto) 3.6 Absolute Lymphs (auto) 1.55 Nucleated RBC % 0 Sodium 140 Potassium 3.7 Chloride 104 Carbon Dioxide 28.0 Anion Gap 8 BUN 11 Creatinine 0.31 L Estim Creat Clear Calc 357.48 Est GFR (MDRD) Af Amer 406 Est GFR (MDRD) Non-Af 335 BUN/Creatinine Ratio 35.0 H Glucose 84 Calcium 8.7 Radiography Diagnostic Testing: Clinical Impression(s) from Imaging Studies Chest X-Ray 11/30/21 11:26 IMPRESSION: The lungs are underexpanded. There is a visualized tracheostomy tube. There is a right-sided Port-A-Cath tip is in the superior vena cava. The lungs are underexpanded. There is no visible focal infiltrate or significant change since prior study Electronically Signed: Jaylin Servin MD at 11:56 EDT Reading Location ID and State: [facility] / [place] Tel , Service support , Treatment and Re-Evaluation Narrative: Patient on initial exam appears to be in no distress, patient is on the mechanical ventilation system from home, mechanical vent 350 tidal volume, rate of 10. Patient did receive a chest x-ray, it shows that there is no visible focal infiltrate or significant change since prior study. Patient CBC, chemistries were unremarkable. Patient is negative for any COVID-19 or influenza. Patient was given 500 IV fluids. When going to talk to the patient parents regarding the results. Patient did have an apneic episode, the patient did have some blue around the lips, agonal breathing, pulse ox went to 84%. Per the mother and father this is what he was doing at home at night and this morning. This is not normal for the patient. At this time, I believe the patient needs to be admitted to the hospital for observation. There is no indication for any bacterial infection at this time. I will speak to the personal lines account manager secondary to the patient being on mechanical ventilation. I will see if he is stable for the floor if he has to go to the ICU. I spoke to the personal lines account manager Dr. Moreira, he states the patient stable for the floor. His lungs the patient is on his home ventilator and the settings are not changed. I did speak with Dr. Alexandre who will admit this patient. <Dayo Jo MD - Last Filed: 11/30/21 13:58> [facility] MDM Narrative Medical decision making narrative: I have personally performed a face to face assessment of the patient and have reviewed the VIC Note. I performed a substantive portion of the visit including all aspects of the following. My mcclain findings include: History is cerebral palsy, chronic respiratory failure on ventilator. Positive apnea with cyanosis according to parents. Exam is afebrile. Vital signs noted. Coarse breath sounds bilaterally. No distress. No noted cyanosis currently. Medical Decision Making check labs. Check chest x-ray. Interpreted by myself, no acute process or infiltrate. Witnessed apneic episode with cyanosis in ED by JOSE. Discussed with ICU/pulmonology. Admit to hospitalist, general medical floor. Disposition is admit in stable condition. Other additions or changes: [None] Lab Data Attestation: I reviewed the patient's lab results. Labs: Laboratory Results - last 24 hr 11/30/21 11/30/21 12:10 12:10 WBC 6.1 RBC 4.31 L Hgb 12.0 L Hct 37.4 L MCV 86.8 MCH 27.8 MCHC 32.1 RDW Std Deviation 41.7 RDW Coeff of [place] 13.2 Plt Count 166 MPV 9.8 Immature Gran % (Auto) 0.200 Neut % (Auto) 58.6 Lymph % (Auto) 25.6 [place] % (Auto) 10.2 H Eos % (Auto) 5.1 H Baso % (Auto) 0.3 Absolute Neuts (auto) 3.6 Absolute Lymphs (auto) 1.55 Nucleated RBC % 0 Sodium 140 Potassium 3.7 Chloride 104 Carbon Dioxide 28.0 Anion Gap 8 BUN 11 Creatinine 0.31 L Estim Creat Clear Calc 357.48 Est GFR (MDRD) Af Amer 406 Est GFR (MDRD) Non-Af 335 BUN/Creatinine Ratio 35.0 H Glucose 84 Calcium 8.7 Radiography Chest X-Ray - ED: Read by ED Physician and Unchanged Diagnostic Testing: Clinical Impression(s) from Imaging Studies Chest X-Ray 11/30/21 11:26 IMPRESSION: The lungs are underexpanded. There is a visualized tracheostomy tube. There is a right-sided Port-A-Cath tip is in the superior vena cava. The lungs are underexpanded. There is no visible focal infiltrate or significant change since prior study Electronically Signed: Jaylin Servin MD at 11:56 EDT , Treatment and Re-Evaluation Narrative: Patient on initial exam appears to be in no distress, patient is on the mechanical ventilation system from home, mechanical vent 350 tidal volume, rate of 10. Patient did receive a chest x-ray, interpreted by ED physician, Dr. Jo it shows that there is no visible focal infiltrate or significant change since prior study. Patient CBC, chemistries were unremarkable. Patient is negative for any COVID-19 or influenza. Patient was given 500 IV fluids. When going to talk to the patient parents regarding the results. Patient did have an apneic episode, the patient did have some blue around the lips, agonal breathing, pulse ox went to 84%. Per the mother and father this is what he was doing at home at night and this morning. This is not normal for the patient. At this time, I believe the patient needs to be admitted to the hospital for observation. There is no indication for any bacterial infection at this time. I will speak to the personal lines account manager secondary to the patient being on mechanical ventilation. I will see if he is stable for the floor if he has to go to the ICU. I spoke to the personal lines account manager Dr. Moreira, he states the patient stable for the floor. His lungs the patient is on his home ventilator and the settings are not changed. I did speak with Dr. Alexandre who will admit this patient. Discharge Plan Dx/Rx/DC Orders Clinical Impression: Hypoxia, Cerebral palsy, Acute dyspnea, Cyanosis Disposition Disposition: Acute Care Hospital [facility]
[2021-11-30 12:16] LABS: Absolute Lymphocyte Count 1.55 X10^3/uL (0.83-4.51); Absolute Neutrophil Count 3.6 X10^3/uL (2.0-7.7); Basophil# 0.02 X10^3/uL; Basophil% 0.3 % (0-1); Eosinophil# 0.31 X10^3/uL; Eosinophils% 5.1 % (0-5); Hematocrit 37.4 % (40-54); Lymphocyte # 1.55 X10^3/ul (0.83-4.51); Lymphocyte % 25.6 % (19-41); Mean Corp Hgb Conc 32.1 g/dL (32-36); Mean Corpuscular Hgb 27.8 pg (27.0-32.0); Mean Corpuscular Volume 86.8 fL (80-94); Mean Platelet Vol. 9.8 fl (6.2-12.0); Monocyte# 0.62 X10^3/uL; Monocyte% 10.2 % (0-10); NRBC Flagged by Analyzer 0 % (0-5); Neutrophil # 3.55 X10^3/uL (2.7-7.7); Neutrophil % 58.6 % (47-70); Platelet Count 166 K/mm3 (150-450); RBC Distribution Width CV 13.2 % (11.6-14.6); RBC Distribution Width SD 41.7 fl (35.1-43.9); Red Blood Count 4.31 M/mm3 (4.6-6.2); White Blood Count 6.1 K/mm3 (4.4-11.0)
[2021-11-30 12:32] LABS: Anion Gap 8 (5-15); BUN 11 mg/dL (7-18); Calcium,Total 8.7 mg/dL (8.5-10.1); Chloride 104 mmol/L (98-107); Creatinine, Serum 0.31 mg/dL (0.70-1.30); EST Glomerular Filtration Rate 335 mL/min (>60); Est Glom Filt Rate - Afr Amer 406 mL/min (>60); Glucose 84 mg/dL (74-106); Potassium 3.7 mmol/L (3.5-5.1); Sodium Level 140 mmol/L (136-145)
--- NOTE | 2021-11-30 13:30 | HP.PCM.HOS_ITS ---
HPI - General General Date of Admission: 11/30/21 Date of Service: 11/30/21 Chief Complaint: shortness of breath HPI Narrative KRISS MICHAEL, is a 41 M with a PMH as outlined who presents via the ED with a complaint of shortness of breath. He is cared for by his parents at home. He is on ventilator at home. Parents noticed that he was hypoxic at home, with oxygen going down to the 80s (84-85%), with his lips turning blue. According to his mother, he is usually taking off his ventilator in the mornings and placed on oxygen by nasal cannula, usually at 4 L. He stays on his oxygen throughout the day and goes back on the ventilator at night. This morning he was placed on the oxygen by nasal cannula but desaturated to the 70s and according to his mother he turned blue, so he was placed back on the ventilator. He didnt have an y fever or chills, though his mother noted that he was bringing up more sputum than usual. Family said this was unusual for him, so they brought him in to the ED. Vitals in [facility] ED were blood pressure 138/81, pulse rate of 104 and respiratory rate of 21. He was saturating at 95% on the ventilator. CBC showed WBC of 6.1 and hemoglobin of 12 and was otherwise unremarkable. Chemistry was essentially unremarkable and chest x-ray showed underexpanded lungs with the visualized tracheostomy tube and no visible focal infiltrate no significant change since prior study. He has been admitted to be managed for hypoxia probably due to ventilator associated pneumonia. CTA requested o/a of history of PE and is pending. [facility] Medical History Acute dyspnea Cerebral palsy Debility Edema History of seizure disorder Iron deficiency anemia Nonrheumatic mitral valve prolapse Obesity Pulmonary embolism on left (06/14/19) Redundant colon Thrombocytopenia Tracheostomy in place Home Medications phenobarbital 20 mg/5 mL (4 mg/mL) oral elixir 60 mg G-tube BID pain 02/19/17 [History Last Taken 04/24/20 21:00] Lactobacillus acidophilus 1 cap G-tube DAILY gut health 02/04/18 [History Last Taken 04/24/20 09:00] metoclopramide HCl 5 mg/5 mL oral solution 5 mg feeding tube TID thrush 09/16/18 [History Last Taken 04/24/20 21:00] lorazepam 1 mg tablet 2 mg G-tube Q8 PRN Agitation 10/08/18 [History Last Taken 04/24/20 22:00] Cough Assist 1 dose .Route .MEDSUPPLY assist in clearing secretions 12/25/18 [History Last Taken Unknown] ferrous sulfate 15 mg iron (75 mg)/mL oral drops 75 mg G-tube DAILY supplement 12/25/18 [History Last Taken 04/24/20 16:00] oxygen concentrator 1 dose .Route .MEDSUPPLY second unit, 4 LPM cont all modalities 12/25/18 [History Last Taken Unknown] ondansetron HCl 4 mg tablet 5 ml feeding tube DAILY PRN Nausea 05/09/19 [History Last Taken Unknown] doxazosin 2 mg tablet 2 mg G-tube DAILY #30 tabs 07/11/19 [Rx Last Taken 04/24 09:00] ascorbic acid (vitamin C) 500 mg/5 mL oral syrup 500 mg G-tube DAILY 08/04/19 [History Last Taken Unknown] gabapentin 250 mg/5 mL oral solution 250 mg G-tube 4X/DAY Check with primary doctor 09/26/19 [History Last Taken 04/25/20 06:00] epinephrine 0.3 mg/0.3 mL injection, auto-injector 0.3 mg IM ONCE PRN Allergic Reaction 10/24/19 [History Last Taken Unknown] calcium carbonate 500 mg/5 mL calcium (1,250 mg/5 mL) oral suspension 500 mg feeding tube DAILY PRN health mainten 07/09/20 [History Last Taken Unknown] albuterol sulfate 2.5 mg/3 mL (0.083 %) solution for nebulization 2.5 mg i nhalation Q4H PRN Sob &/Or Wheezing 11/27/20 [History Last Taken Unknown] baclofen 5 mg/5 mL oral solution 20 mg G-tube Q6H Spasticity 11/27/20 [History Last Taken Unknown] esomeprazole magnesium 40 mg granules delayed release for susp 40 mg G-tube BID 11/27/20 [History Last Taken Unknown] famotidine 20 mg tablet (Pepcid) 20 mg feeding tube LUNCH 11/27/20 [History Last Taken Unknown] guaifenesin 200 mg/5 mL oral liquid 200 mg feeding tube Q4H PRN Cough 11/27/20 [History Last Taken Unknown] lactose-reduced food with fiber 0.06 gram-1.2 kcal/mL oral liquid 1,000 ml G- tube DAILY Check with primary doctor 11/27/20 [History Last Taken Unknown] plecanatide 3 mg tablet 3 mg G-tube DAILY Check with primary doctor 11/27/20 [History Last Taken Unknown] simethicone 40 mg/0.6 mL oral drops,suspension 40 mg G-tube 4X/DAY gas 11/27/20 [History Last Taken Unknown] aluminum-mag hydroxide-simethicone 200 mg-200 mg-20 mg/5 mL oral susp 20 ml feeding tube 4X/DAY 01/11/21 [History Last Taken Unknown] nystatin 100,000 unit/mL oral suspension 1 ml buccal 4X/DAY 01/11/21 [History Last Taken Unknown] betamethasone dipropionate 0.05 % topical cream 1 applic topical BID #45 grams 05/19/21 [Rx Last Taken Unknown] Allergy/AdvReac Type Severity Reaction Status Date / Time cisapride monohydrate Allergy Rash Verified 11/30/21 11:10 [From Propulsid] house dust Allergy NEEDS Verified 11/30/21 11:10 FOLLOW-UP codeine AdvReac hallucinati Verified 11/30/21 11:10 ons metronidazole [From Flagyl] AdvReac Rash Verified 11/30/21 11:10 morphine AdvReac Hallucinati Verified 11/30/21 11:10 ons Family History Mother Hepatitis C Hypertension Father CAD (coronary artery disease) Atrial fibrillation Hypertension H/O heart artery stent Surgical History Colostomy in place Heel cord lengthening History of colostomy History of eye surgery History of gastrostomy tube placement History of open reduction and internal fixation (ORIF) procedure History of soft tissue release Status post insertion of intrathecal baclofen pump Social History household members: family housing: house current occupational status: disabled Smoking Status: Never smoker alcohol intake: never substance use type: does not use caffeine: No ROS ROS Narrative taken from mother as patient is nonverbal Constitutional Constitutional: Denies anorexia, chills or fever(s) Cardiovascular Cardiovascular: Denies dyspnea on exertion or rapid heart rate Respiratory/Chest Respiratory/Chest: Reports cough, excessive phlegm production and shortness of breath at rest; Denies productive cough or shortness of breath with exertion Gastrointestinal Gastrointestinal: Denies diarrhea or vomiting Vital Signs Vital Signs Vital Signs: 11/30/21 11:05 11/30/21 11:11 11/30/21 12:19 Temperature 97.6 F L Temperature Source Temporal Pulse Rate 85 85 Respiratory Rate 14 24 H Respiratory Effort Mechanically Ventilated Respiratory Depth Normal Respiratory Pattern Normal Blood Pressure 128/81 H 131/79 H Blood Pressure Mean 96 96 Pulse Ox 98 93 Oxygen Delivery Method Ambu-Bag Mechanical Ventilator Mechanical Ventilator Oxygen Flow Rate (L/min) 12 4 11/30/21 13:03 Temperature Temperature Source Pulse Rate 104 H Respiratory Rate 21 H Respiratory Effort Respiratory Depth Respiratory Pattern Blood Pressure 138/81 H Blood Pressure Mean 100 Pulse Ox 95 Oxygen Delivery Method Mechanical Ventilator Oxygen Flow Rate (L/min) Weight Weight: 174 lb 2.643 oz Body Mass Index (BMI) 53.1 Physical Exam Const Constitutional Narrative: patient nonverbal due to cerebral palsy, on his home ventilator HEENT normocephalic HEENT Narrative: oral mucosa dry Eyes PERRL Neck no lymphadenopathy Resp Resp Narrative: diminished breath sounds bibasally, no wheezes or crackles. On home ventilator Cardio regular rate, regular rhythm, S1 normal heart sound, S2 normal heart sound and no murmurs GI normal to inspection, nondistended, normoactive bowel sounds, soft to palpation and non-tender GI Narrative: PEG tube in place. Colostomy bag in place Extremity Extremity Narrative: contractures of LEs Neuro Neuro Narrative: cerebral palsy with spasticity Results Lab / Micro Data Result Diagrams: 11/30/21 12:10 11/30/21 12:10 Labs: Laboratory Results - last 24 hr 11/30/21 12:10: WBC 6.1, RBC 4.31 L, Hgb 12.0 L, Hct 37.4 L, MCV 86.8, MCH 27.8, MCHC 32.1, RDW Std Deviation 41.7, RDW Coeff of Emilee 13.2, Plt Count 166, MPV 9.8, Immature Gran % (Auto) 0.200, Neut % (Auto) 58.6, Lymph % (Auto) 25.6, [place] % (Auto) 10.2 H, Eos % (Auto) 5.1 H, Baso % (Auto) 0.3, Absolute Neuts (auto) 3.6, Absolute Lymphs (auto) 1.55, Nucleated RBC % 0 11/30/21 12:10: Sodium 140, Potassium 3.7, Chloride 104, Carbon Dioxide 28.0, Anion Gap 8, BUN 11, Creatinine 0.31 L, Estim Creat Clear Calc 357.48, Est GFR (MDRD) Af Amer 406, Est GFR (MDRD) Non-Af 335, BUN/Creatinine Ratio 35.0 H, Glucose 84, Calcium 8.7 Micro: Microbiology 11/30/21 11:50 Nasal Secretion SARS-CoV-2 & FLU Antigen (Rapid) - Final Radiology Impression Chest X-Ray 11/30/21 11:26 IMPRESSION: The lungs are underexpanded. There is a visualized tracheostomy tube. There is a right-sided Port-A-Cath tip is in the superior vena cava. The lungs are underexpanded. There is no visible focal infiltrate or significant change since prior study Electronically Signed: Jaylin Servin MD at 11:56 EDT , Assessment & Plan Assessment/Plan (1) Hypoxia: PLAN: Plan #Hypoxia in a patient with chronic hypoxic respiratory failure * Concerning for ventilator associated pneumonia as mother has noticed that he has had increased sputum production with sputum being yellowish. He could not be transitioned to his 4 L of nasal cannula essentially worse during the day and needed to be on his vent as he got hypoxic. * Sputum cultures ordered. CTA also ordered because he has a history of PE * Start on IV Zosyn. * Breathing treatments bronchodilators. Titrate oxygen maintain saturation above 90%. * Critical care consulted for management of vent. * Continue events per current home settings. #Cerebral palsy with spastic quadriplegia * On baclofen and Ativan as needed * #Seizure disorder: On phenobarbital and gabapentin. #GERD: On PPI #Nutrition: On tube feeding. IV Zofran as needed. DVT prophylaxis: Lovenox CODE STATUS: Full code * Patient's mother counseled about CODE STATUS and difference between full code, DNR CCA and DNR CCA. Mother wants everything done for the patient including CPR. He is currently on a ventilator elevated. * Total [id number] time 16 minutes. Charges/Coding Visit Charges Inpatient E&M: 69602 Init Hosp L3 Procedures Hospitalists Procedures: 83369 Advncd Care Plan 30 Min
--- NOTE | 2021-11-30 13:47 | CT_ITS ---
STUDY: CTA CHEST REASON FOR EXAM: Male, 41 years old. PE? CEREBRAL PALSY WITH TRACH RADIATION DOSAGE (If Supplied By Facility): CTDIvol = ( 10.16 ) mGy, DLP = ( 403.17 ) mGycm TECHNIQUE: The examination was performed with the intravenous administration of IV 75mL Isovue-370. Post-processing of the angiographic images was performed, with multiplanar reformation and 3D reconstruction. Individualized dose optimization techniques were used for this CT. COMPARISON: X-ray November 30, 2021 FINDINGS: There is a right-sided central line the tip is in the superior vena cava. Normal enhancement of the main pulmonary artery and right and left pulmonary arteries. Normal enhancement of the bilateral peripheral pulmonary arteries. There is no demonstrated pulmonary embolism. Normal thoracic aorta and visualized great vessels. There is no demonstrated aortic dissection. There is a visualized tracheostomy tube. There is borderline cardiac enlargement. Reactive appearing mediastinal lymph nodes. There is a right-sided peritracheal lymph node measuring 1.7 cm. There are several smaller lymph nodes demonstrated. There is a crowded appearance of the right hilum. There is peribronchial thickening and right upper lobe consolidation. There are visualized areas of groundglass opacity in the right middle lobe. There is peribronchial inflammatory change in the right lower lobe. There is peribronchial thickening and inflammation within the left lower lobe. There is visualized focal thickening of the right main stem bronchus towards the right upper lobe bronchus. There is a small focus of left lower lobe consolidation. Normal hilar regions. Normal pleura. Normal chest wall structures. There is mild visualized degenerative change in the thoracolumbar spine. Normal visualized upper abdomen. CT/CTA Chest W/WO Contrast IMPRESSION: No pulmonary embolism. Findings are most consistent with aspiration pneumonia. There is consolidation in the right upper lobe. There are scattered areas of peribronchial inflammation. There is a narrowed, thickened appearance of the right mainstem bronchus and upper lobe bronchial structures. Small focus of left lower lobe consolidation. Borderline cardiac enlargement. Right-sided central line tip in the superior vena cava. Electronically Signed: Jaylin Servin MD at 16:01 EDT ,
[2021-11-30] MEDS: 0.9% Normal Saline 1,000 ML 125 ML IV (15:47)
[2021-11-30] MEDS: 0.9% Saline Lock 10 ML Syringe IV (15:47)
[2021-11-30] MEDS: GABAPENTIN 250 MG/5 ML SOLUTION 500 MG GT ×2 (18:06→21:24)
[2021-11-30] MEDS: BACLOFEN 5 MG/ML 20 MG PO ×2 (18:07→23:31)
[2021-11-30] MEDS: Mag Hydrox/Al Hydrox/Simeth 30 ML UDC 20 ML GT ×2 (18:07→21:23)
[2021-11-30] MEDS: NYSTATIN 500,000 UNIT/5 ML UDC 100000 UNIT GT ×2 (18:52→21:23)
[2021-11-30] MEDS: Lansoprazole 15 MG Capsule.DR 30 MG GT (21:22)
[2021-11-30] MEDS: Metoclopramide 10 MG/10 ML UDC 5 MG GT (21:23)
[2021-11-30] MEDS: Phenobarbital 20 MG/5 ML UDC 60 MG GT (21:26)
[2021-11-30] MEDS: Jevity 1.5 1,000 ML 50 ML GT (21:40)
[2021-12-01] VITALS (16 sets, daily range): BP systolic 92–150; BP diastolic 62–125; PULSE 57–145; RESP 14–32; TEMP 36.3–37.2; O2SAT 90–96
[2021-12-01] MEDS: 0.9% Normal Saline 1,000 ML 125 ML IV (01:26)
[2021-12-01] MEDS: Acetaminophen 650 MG/20 ML UDC GT ×3 (05:04→23:37)
[2021-12-01] MEDS: Simethicone 40MG/0.6ML Bottle 40 MG GT ×2 (05:04→11:29)
[2021-12-01] MEDS: Metoclopramide 10 MG/10 ML UDC 5 MG GT ×3 (05:05→22:34)
[2021-12-01] MEDS: BACLOFEN 5 MG/ML 20 MG PO ×4 (05:05→23:22)
[2021-12-01 06:38] LABS: Absolute Neutrophil Count 3.2 X10^3/uL (2.0-7.7); Basophil# 0.01 X10^3/uL; Basophil% 0.2 % (0-1); Eosinophil# 0.47 X10^3/uL; Eosinophils% 9.2 % (0-5); Hematocrit 34.7 % (40-54); Lymphocyte % 17.6 % (19-41); Mean Corp Hgb Conc 31.7 g/dL (32-36); Mean Corpuscular Hgb 28.7 pg (27.0-32.0); Mean Corpuscular Volume 90.6 fL (80-94); Mean Platelet Vol. 10.5 fl (6.2-12.0); Monocyte# 0.54 X10^3/uL; Monocyte% 10.6 % (0-10); NRBC Flagged by Analyzer 0 % (0-5); Neutrophil # 3.18 X10^3/uL (2.7-7.7); Neutrophil % 62.2 % (47-70); Platelet Count 148 K/mm3 (150-450); RBC Distribution Width CV 13.8 % (11.6-14.6); Red Blood Count 3.83 M/mm3 (4.6-6.2); White Blood Count 5.1 K/mm3 (4.4-11.0)
[2021-12-01 07:06] LABS: Anion Gap 10 (5-15); BUN 11 mg/dL (7-18); BUN/Creat Ratio 36.4 RATIO (10-20); Calcium,Total 8.1 mg/dL (8.5-10.1); Chloride 107 mmol/L (98-107); EST Glomerular Filtration Rate 351 mL/min (>60); Est Glom Filt Rate - Afr Amer 424 mL/min (>60); Glucose 108 mg/dL (74-106); Potassium 3.6 mmol/L (3.5-5.1); Sodium Level 142 mmol/L (136-145)
--- NOTE | 2021-12-01 09:26 | CON.PCM.CC_ITS ---
Assessment & Plan Assessment/Plan (1) Chronic respiratory failure: QUALIFIERS: Respiratory failure complication: hypoxia and hypercapnia Qualified Code(s): J96.11 - Chronic respiratory failure with hypoxia; J96.12 - Chronic respiratory failure with hypercapnia PLAN: Plan RECOMMENDATIONS: 1. Continue vent support with SIMV throughout the day and night for now. 2. Wean oxygen as tolerated for saturations greater than 90%. 3. Continue empiric antimicrobials, pending finalized culture results. 4. Continue aggressive bronchopulmonary hygiene with CoughAssist and vest therapy. 5. Continue nutritional support via G-tube. 6. Obtain arterial blood gas. IMPRESSIONS: 1.??Acute on chronic hypoxic respiratory failure Clinical suspicion for mucous plugging in the setting of gram-negative pneumonia as precipitating etiology for acute presentation. Recommend continuing ventilatory support with SIMV per home regimen throughout the day and night. Continue empiric antimicrobials, pending finalized culture results. Continue aggressive bronchopulmonary hygiene in the form of vest therapy and CoughAssist. Continue to wean oxygen as tolerated. Continue nutritional support via G-tube. Continue as needed bronchodilator therapy. 2.??Cerebral palsy/spastic quadriplegia/seizure disorder/GERD/history of PE Complicates care, management, recovery and prognosis.? Okay to continue with baseline medications from my perspective.? This note was generated with [employer] dictation software. It may contain incorrect words, spelling, and punctuation that were not noted in checking the note before signing. HPI Consult Data Date of Consult: 12/01/21 HPI Narrative Reason for Consultation: Acute on chronic respiratory failure HPI Narrative: The patient is a 41-year-old female, with a history as outlined below, who presented to the emergency department on November 30 with concern over perioral cyanosis and periodic oxygen desaturations. The patient has a history of cerebral palsy, spastic quadriplegia and chronic respiratory failure requiring home ventilator utilization.? The patient is followed by Dr. Monsalve in the outpatient pulmonary clinic.? He is on SIMV mode on his noninvasive ventilator at baseline throughout the night.? During the day, he typically requires 2 to 3 L/min of supplemental oxygen. On presentation to the emergency department, the patient was noted to be afebrile hemodynamically stable. Initial laboratory evaluation revealed no evidence of a leukocytosis. Chemistry profile was unrevealing. Rapid COVID testing and respiratory viral panel were negative. CTA chest showed no evidence for pulmonary embolism. There was, however, peribronchial thickening and right upper lobe consolidation along with peribronchial inflammatory changes involving the right lower lobe. The patient was placed on empiric antimicrobials and admitted to the progressive care unit on his home, baseline ventilator settings. [facility] Medical History Acute dyspnea Cerebral palsy Debility Edema History of seizure disorder Iron deficiency anemia Nonrheumatic mitral valve prolapse Obesity Pulmonary embolism on left (06/14/19) Redundant colon Thrombocytopenia Tracheostomy in place Home Medications phenobarbital 20 mg/5 mL (4 mg/mL) oral elixir 60 mg G-tube BID pain 02/19/17 [History Last Taken 04/24/20 21:00] Lactobacillus acidophilus 1 cap G-tube DAILY gut health 02/04/18 [History Last Taken 04/24/20 09:00] metoclopramide HCl 5 mg/5 mL oral solution 5 mg feeding tube TID thrush 09/16/18 [History Last Taken 04/24/20 21:00] lorazepam 1 mg tablet 2 mg G-tube Q8 PRN Agitation 10/08/18 [History Last Taken 04/24/20 22:00] Cough Assist 1 dose .Route .MEDSUPPLY assist in clearing secretions 12/25/18 [History Last Taken Unknown] ferrous sulfate 15 mg iron (75 mg)/mL oral drops 75 mg G-tube DAILY supplement 12/25/18 [History Last Taken 04/24/20 16:00] oxygen concentrator 1 dose .Route .MEDSUPPLY second unit, 4 LPM cont all modalities 12/25/18 [History Last Taken Unknown] ondansetron HCl 4 mg tablet 5 ml feeding tube DAILY PRN Nausea 05/09/19 [History Last Taken Unknown] ascorbic acid (vitamin C) 500 mg/5 mL oral syrup 500 mg G-tube DAILY Check with primary doctor 08/04/19 [History Last Taken Unknown] gabapentin 250 mg/5 mL oral solution 500 mg G-tube 4X/DAY Check with primary doctor 09/26/19 [History Last Taken 04/25/20 06:00] albuterol sulfate 2.5 mg/3 mL (0.083 %) solution for nebulization 2.5 mg inhalation Q4H PRN Sob &/Or Wheezing 11/27/20 [History Last Taken Unknown] baclofen 5 mg/5 mL oral solution 20 mg G-tube Q6H Spasticity 11/27/20 [History Last Taken Unknown] esomeprazole magnesium 40 mg granules delayed release for susp 40 mg G-tube BID Check with primary doctor 11/27/20 [History Last Taken Unknown] famotidine 20 mg tablet (Pepcid) 20 mg feeding tube LUNCH Check with primary doctor 11/27/20 [History Last Taken Unknown] guaifenesin 200 mg/5 mL oral liquid 200 mg feeding tube Q4H PRN Cough 11/27/20 [History Last Taken Unknown] lactose-reduced food with fiber 0.06 gram-1.2 kcal/mL oral liquid 1,000 ml G- tube DAILY Check with primary doctor 11/27/20 [History Last Taken Unknown] plecanatide 3 mg tablet 3 mg G-tube DAILY Check with primary doctor 11/27/20 [History Last Taken Unknown] simethicone 40 mg/0.6 mL oral drops,suspension 40 mg G-tube PRN PRN GAS 11/27/20 [History Last Taken Unknown] aluminum-mag hydroxide-simethicone 200 mg-200 mg-20 mg/5 mL oral susp 20 ml feeding tube 4X/DAY Check with primary doctor 01/11/21 [History Last Taken Unkn own] nystatin 100,000 unit/mL oral suspension 1 ml buccal 4X/DAY Check with primary doctor 01/11/21 [History Last Taken Unknown] betamethasone dipropionate 0.05 % topical cream 1 applic topical BID Check with primary doctor 11/30/21 [History Last Taken Unknown] doxazosin 2 mg tablet 2 mg PO DAILY Check with primary doctor 11/30/21 [History Last Taken Unknown] Allergy/AdvReac Type Severity Reaction Status Date / Time cisapride monohydrate Allergy Rash Verified 11/30/21 11:10 [From Propulsid] house dust Allergy NEEDS Verified 11/30/21 11:10 FOLLOW-UP codeine AdvReac hallucinati Verified 11/30/21 11:10 ons metronidazole [From Flagyl] AdvReac Rash Verified 11/30/21 11:10 morphine AdvReac Hallucinati Verified 11/30/21 11:10 ons Family History Mother Hepatitis C Hypertension Father CAD (coronary artery disease) Atrial fibrillation Hypertension H/O heart artery stent Surgical History Colostomy in place Heel cord lengthening History of colostomy History of eye surgery History of gastrostomy tube placement History of open reduction and internal fixation (ORIF) procedure History of soft tissue release Status post insertion of intrathecal baclofen pump Social History household members: family housing: house current occupational status: disabled Smoking Status: Never smoker alcohol intake: never substance use type: does not use caffeine: No ROS Review of Systems ROS Unobtainable: due to mental status Physical Exam Const Constitutional Narrative: Baseline neurological status. General Appearance: well developed and patient mechanically ventilated HEENT normocephalic and head/scalp atraumatic Eyes PERRL and conjunctivae normal Neck supple Neck Narrative: Tracheostomy site intact. Chest inspection of chest normal Resp Effort and Inspection: tachypneic Auscultation: wheezes and diminished lung sounds Cardio S1 normal heart sound and S2 normal heart sound Rate: tachycardic GI normal to inspection, nondistended, normoactive bowel sounds Inspection: GI tube present and ostomy present Extremity no clubbing, cyanosis or edema Skin no rashes or lesions noted Neuro Neuro Narrative: Baseline neurological status with spastic quadriplegia Psych Mood & Affect: flat affect Lab / Micro Data Result Diagrams: 12/01/21 05:52 12/01/21 05:52 Labs: Laboratory Results - last 24 hr 11/30/21 12:10: WBC 6.1, RBC 4.31 L, Hgb 12.0 L, Hct 37.4 L, MCV 86.8, MCH 27.8, MCHC 32.1, RDW Std Deviation 41.7, RDW Coeff of Emilee 13.2, Plt Count 166, MPV 9.8, Immature Gran % (Auto) 0.200, Neut % (Auto) 58.6, Lymph % (Auto) 25.6, [place] % (Auto) 10.2 H, Eos % (Auto) 5.1 H, Baso % (Auto) 0.3, Absolute Neuts (auto) 3.6, Absolute Lymphs (auto) 1.55, Nucleated RBC % 0 11/30/21 12:10: Sodium 140, Potassium 3.7, Chloride 104, Carbon Dioxide 28.0, Anion Gap 8, BUN 11, Creatinine 0.31 L, Estim Creat Clear Calc 357.48, Est GFR (MDRD) Af Amer 406, Est GFR (MDRD) Non-Af 335, BUN/Creatinine Ratio 35.0 H, Glucose 84, Calcium 8.7 12/01/21 05:52: WBC 5.1, RBC 3.83 L, Hgb 11.0 L, Hct 34.7 L, MCV 90.6, MCH 28.7, MCHC 31.7 L, RDW Std Deviation 46.0 H, RDW Coeff of Emilee 13.8, Plt Count 148 L, MPV 10.5, Immature Gran % (Auto) 0.200, Neut % (Auto) 62.2, Lymph % (Auto) 17.6 L, [place] % (Auto) 10.6 H, Eos % (Auto) 9.2 H, Baso % (Auto) 0.2, Absolute Neuts (auto) 3.2, Absolute Lymphs (auto) 0.90, Nucleated RBC % 0 12/01/21 05:52: Sodium 142, Potassium 3.6, Chloride 107, Carbon Dioxide 25.0, Anion Gap 10, BUN 11, Creatinine 0.30 L, Estim Creat Clear Calc 233.80, Est GFR (MDRD) Af Amer 424, Est GFR (MDRD) Non-Af 351, BUN/Creatinine Ratio 36.4 H, Glucose 108 H, Calcium 8.1 L Micro: Microbiology 11/30/21 11:50 Nasal Secretion SARS-CoV-2 & FLU Antigen (Rapid) - Final Radiology Impression Chest X-Ray 11/30/21 11:26 IMPRESSION: The lungs are underexpanded. There is a visualized tracheostomy tube. There is a right-sided Port-A-Cath tip is in the superior vena cava. The lungs are underexpanded. There is no visible focal infiltrate or significant change since prior study Electronically Signed: Jaylin Servin MD at 11:56 EDT , Chest CTA 11/30/21 13:47 IMPRESSION: No pulmonary embolism. Findings are most consistent with aspiration pneumonia. There is consolidation in the right upper lobe. There are scattered areas of peribronchial inflammation. There is a narrowed, thickened appearance of the right mainstem bronchus and upper lobe bronchial structures. Small focus of left lower lobe consolidation. Borderline cardiac enlargement. Right-sided central line tip in the superior vena cava. Electronically Signed: Jaylin Servin MD at 16:01 EDT , Charges/Coding Visit Charges Inpatient E&M: 06161 Init Hosp L3
[2021-12-01] MEDS: Phenobarbital 20 MG/5 ML UDC 60 MG GT ×2 (10:12→22:42)
[2021-12-01] MEDS: Doxazosin 1 MG Tablet 2 MG GT (10:13)
[2021-12-01] MEDS: Ferrous Sulfate 300 MG/5 ML UDC 75 MG GT (10:13)
[2021-12-01] MEDS: GABAPENTIN 250 MG/5 ML SOLUTION 500 MG GT ×4 (10:15→22:30)
[2021-12-01] MEDS: Enoxaparin 40 MG/0.4 ML Syringe SC (10:16)
[2021-12-01] MEDS: Lansoprazole 15 MG Capsule.DR 30 MG GT (10:16)
[2021-12-01] MEDS: Mag Hydrox/Al Hydrox/Simeth 30 ML UDC 20 ML GT ×4 (10:16→22:29)
[2021-12-01] MEDS: NYSTATIN 500,000 UNIT/5 ML UDC 100000 UNIT GT ×4 (10:17→22:31)
[2021-12-01] MEDS: Ascorbic Acid 500 MG Tablet GT (10:20)
[2021-12-01] MEDS: PLECANATIDE 3 MG TABLET PO (10:20)
--- NOTE | 2021-12-01 11:20 | CASEMGMT ---
RE GUADALUPE assessment: Face to Face with patient for initial transition planning/care coordination assessment. RE GUADALUPE introduced self and role at [facility], mother voices understanding and consents to assessment. Pt is sitting lying in bed on home vent with mother at bedside. Pt's parents are guardians.? Care providers, pharmacy,?and demographics verified. ? Presentation: pt's sats dropping to low 80's at home, usually on vent at night and oxygen thru day-unable to tolerate today Admitting dx: Ventilator assoc pna PCP: Senia Specialists: Mariann, cardio; Bello pulm; Beatriz, ENT; Dania, GI; Gustavo, PM Preferred Pharmacy: [facility] Insurance: [employer]/B, Mauro, CATHY Prescription Benefit:?Yes Living Will/HPOA: Pt's parents are his guardians and paperwork is on file at [facility]. LNOK: Ray/Matteo Nahidcristoy, parents/guardians Living Arrangements: Pt lives with parents in 1 story home with ramp entrance. Pt has SN/aides almost daily for about 10hours/day and then parents also do total care. Transportation: Pt uses W/C van or ambulance for transportation. DME/HHC: Pt has the following DME: pulse ox, shower chair, estefany, w/c, hospital bed(working on getting new one), feeding pump, ceiling track, elevator, cough assist device, physiotherapy vest, home vent, and home oxygen 4L thru [facility]. Pt is active with [facility] SN, OT, ST and LAUREN order placed. Pt has not been to SNF in past. Pt has CM thru [facility] [place]. Mom states no concerns with pt going home at time of discharge. Pt is disabled. Mom voices no further concerns/needs. CM to follow for any further discharge planning/needs. Advised mom to ask for CM if any further questions/concerns/needs arise, voices understanding. Plan: [place] RE GUADALUPE
--- NOTE | 2021-12-01 11:25 | CASEMGMT ---
RE GUADALUPE assessment: Face to Face with patient for initial transition planning/care coordination assessment. RE GUADALUPE introduced self and role at [facility], pt voices understanding and consents to assessment. Pt is sitting lying in bed on home vent with mother at bedside. Pt's parents are guardians.? Care providers, pharmacy,?and demographics verified. ? Presentation: pt's sats dropping to low 80's at home, usually on vent at night and oxygen thru day-unable to tolerate today Admitting dx: Ventilator assoc pna PCP: Senia Specialists: Mariann, cardio; Bello pulm; Beatriz, ENT; Dania, GI; Gustavo, PM Preferred Pharmacy: [facility] Insurance: [employer] A/B, Mauro, CATHY Prescription Benefit:?Yes Living Will/HPOA: Pt's parents are his guardians and paperwork is on file at [facility]. LNOK: Ray/Matteo Nahidcristoy, parents/guardians Living Arrangements: Pt lives with parents in 1 story home with ramp entrance. Pt has SN/aides almost daily for about 10hours/day and then parents also do total care. Transportation: Pt uses W/C van or ambulance for transportation. DME/HHC: Pt has the following DME: pulse ox, shower chair, estefany, w/c, hospital bed(working on getting new one), feeding pump, ceiling track, elevator, cough assist device, physiotherapy vest, home vent, and home oxygen 4L thru [facility]. Pt is active with [facility] SN, OT, ST and [facility]UR[facility] order placed. Pt has not been to SNF in past. Pt has CM thru [facility] [place]. Mom states no concerns with pt going home at time of discharge. Pt is disabled. Mom voices no further concerns/needs. CM to follow for any further discharge planning/needs. Advised mom to ask for CM if any further questions/concerns/needs arise, voices understanding. Plan: [place] RE GUADALUPE
[2021-12-01] MEDS: Famotidine 20 MG Tablet GT (11:29)
--- NOTE | 2021-12-01 11:55 | EKG12_ITS ---
Test Reason : Blood Pressure : / mmHG Vent. Rate : 139 BPM Atrial Rate : 139 BPM P-R Int : 132 ms QRS Dur : 082 ms QT Int : 274 ms P-R-T Axes : 053 -42 101 degrees QTc Int : 416 ms Sinus tachycardia Left axis deviation Low voltage QRS Cannot rule out Anterior infarct , age undetermined Abnormal ECG Confirmed by PATEL VARGAS, RACHELLE ([id number]), editorial director JOSEMANUEL TORRES ([id number]) on 12/02/2021 1:50:18 PM Referred By: Bettie Confirmed By:RACHELLE SWEENEY MD
[2021-12-01] MEDS: LORazepam 1 MG Tablet 2 MG GT (12:09)
--- NOTE | 2021-12-01 12:25 | RAD_ITS ---
STUDY: X-RAY - ABDOMEN/PELVIS REASON FOR EXAM: Male, 41 years old. Abdominal distention. TECHNIQUE: Single AP view of the abdomen / pelvis. COMPARISON: Comparison is made with prior study dated 05/20/2021. FINDINGS: A gastrostomy tube is in situ. There is an unremarkable bowel gas pattern. An ostomy seen in the left lower quadrant. Small caliber catheter is seen overlying the left lower abdomen. The visualized liver, spleen and kidneys are grossly normal in size and morphology. Normal soft tissue structures. Levoscoliosis. RAD/Abdomen Single View (Portable) IMPRESSION: Nonspecific bowel gas pattern. Gastrostomy tube is seen within the stomach. A small caliber catheter is seen in the right lower quadrant. Electronically Signed: Matti Greer MD at 14:09 EDT ,
--- NOTE | 2021-12-01 12:25 | RAD_ITS ---
STUDY: X-RAY CHEST REASON FOR EXAM: Male, 41 years old. sob TECHNIQUE: Single AP portable view of the chest. COMPARISON: Comparison is made with prior study dated 11/30/2021. FINDINGS: A tracheostomy tube is in situ. The tip is at 4.2 cm proximal to the clark. A right-sided portacatheter is seen with the tip in the right atrium. EKG electrodes are seen. The lungs are clear and expanded. There is no demonstrated pleural abnormality. Normal size heart. Normal mediastinum and rachelle. Normal visualized pulmonary arteries. Normal visualized aortic arch and descending thoracic aorta. Normal visualized thoracic spine. Normal visualized ribs, clavicles, and shoulders. There is no demonstrated abnormality of the visualized soft tissue structures of the upper abdomen. RAD/Chest 1 View (Portable) IMPRESSION: No acute abnormality is seen. Electronically Signed: Matti Greer MD at 14:07 EDT ,
[2021-12-01 13:05] LABS: Allen Test Negative; Base Excess -3 mmol/L (-2 to +2); Bicarbonate 21.5 mmol/L (22-26); Blood Gas Specimen Type ART; Mode home vent; O2 Delivery Device Adult Vent; PO2 65 mmHG (75-100); SITE R Brach; SO2 94 % (95-99); Total Carbon Dioxide 22 mmol/L; pCO2 31.2 mmHg (35-45); pH 7.45 (7.35-7.45)
[2021-12-01 13:06] LABS: Lactic Acid 2.3 mmol/L (0.4-1.9)
[2021-12-01 13:58] LABS: Anion Gap 9 (5-15); BUN 11 mg/dL (7-18); Calcium,Total 8.4 mg/dL (8.5-10.1); Chloride 109 mmol/L (98-107); Creatinine, Serum 0.37 mg/dL (0.70-1.30); EST Glomerular Filtration Rate 280 mL/min (>60); Est Glom Filt Rate - Afr Amer 339 mL/min (>60); Estimated Creatinine Clearance 189.56 ml/min; Glucose 107 mg/dL (74-106); Potassium 3.5 mmol/L (3.5-5.1); Sodium Level 141 mmol/L (136-145)
--- NOTE | 2021-12-01 14:13 | CHAPLAIN ---
Type of Pastoral Visit _x__ Initial Visit ___ Follow-up Visit ___ On-call Visit ___ General Patient Visit ___ Spiritual Assessment ___ Family Conference ___ Bereavement ___ Rapid Response ___ Code Blue ___ Other (describe below) Pastoral Care Referral From ___ Patient _x__ Family ___ Nurse ___ Physician ___ Flatbed Press Operator ___ Senior Principal Software Engineer ___ Other (describe below) Sacrament/Intervention _x__ Active listening ___ Anointing ___ Bahai ___ Bereavement ___ Communion ___ Sandra exploration ___ _x__ Life review _x__ Prayer ___ Reconciliation ___ Sacrament of Sick _x__ Supportive presence ___ Wedding ___ Other (describe below) Pastoral Comments patient has been seen in past admissions; spoke with mother for a length of time as pt is unable to communicate; offer of support and presence to mother; mother talks about her family concerns involving ailing parent and caring for this patient too; mother is aware of needs for herself but 'most do what I have to do for my son'; mother requests prayer support for son; presence given as RT and radiology do their jobs
[2021-12-01] MEDS: Nystatin Powder 15gm Bottle 1 APPLIC TOPICAL ×2 (14:41→22:31)
[2021-12-01 16:44] LABS: Reflex Lactate? Y
--- NOTE | 2021-12-01 17:38 | PN.HOSP_ITS ---
Subjective Subjective DOs 12/01/21 CC: Unable to voice c/c 2/2 mental status This AM Timer was tachycardic and tachypneic, labs and xrays ordered which demonstrated ph 7.45, pco2 31.2, po2 at the time 65 and lactic was 2.3. Pt was suctioned and given ativan and resp improved to 18, O2 sat improved to mid 90's while still on his vent with home SVIM settings, and lactic down to 1.2. CXR no new abnormalities and non specific gas pattern on abd XR. Pt doing better throughout the day, mom at bedside. Fair ostomy output, tube feeds held temporarily d/t needing fluids to flush meds but resumed Objective Data Objective Data Vital Signs: Vital Signs Temp Pulse Resp BP Pulse Ox O2 Del Method O2 Flow Rate 97.6 F L 100 26 H 126/71 H 94 Mechanical Ventilator 4 12/01/21 14:35 12/01/21 15:21 12/01/21 14:35 12/01/21 14:35 12/01/21 14:35 12/01/21 14:39 11/30/21 15:44 Oxygen Flow Rate (L/min) 4 Oxygen Delivery Method Mechanical Ventilator Weight: 74.888 kg Body Mass Index (BMI) 32.2 Intake & Output: Intake and Output for Last 24 Hours 11/29/21 11/30/21 12/01/21 23:59 23:59 23:59 Intake Total 550 / 550 2300 / 2300 Output Total 150 / 150 Balance 550 / 550 2150 / 2150 Lab / Micro Data Result Diagrams: 12/01/21 05:52 12/01/21 13:35 Labs: Laboratory Results - last 24 hr 12/01/21 05:52: WBC 5.1, RBC 3.83 L, Hgb 11.0 L, Hct 34.7 L, MCV 90.6, MCH 28.7, MCHC 31.7 L, RDW Std Deviation 46.0 H, RDW Coeff of Emilee 13.8, Plt Count 148 L, MPV 10.5, Immature Gran % (Auto) 0.200, Neut % (Auto) 62.2, Lymph % (Auto) 17.6 L, Mayes % (Auto) 10.6 H, Eos % (Auto) 9.2 H, Baso % (Auto) 0.2, Absolute Neuts (auto) 3.2, Absolute Lymphs (auto) 0.90, Nucleated RBC % 0 12/01/21 05:52: Sodium 142, Potassium 3.6, Chloride 107, Carbon Dioxide 25.0, Anion Gap 10, BUN 11, Creatinine 0.30 L, Estim Creat Clear Calc 233.80, Est GFR (MDRD) Af Amer 424, Est GFR (MDRD) Non-Af 351, BUN/Creatinine Ratio 36.4 H, Glucose 108 H, Calcium 8.1 L 12/01/21 12:13: Lactic Acid 2.3 H* 12/01/21 13:35: Sodium 141, Potassium 3.5, Chloride 109 H, Carbon Dioxide 23.0, Anion Gap 9, BUN 11, Creatinine 0.37 L, Estim Creat Clear Calc 189.56, Est GFR (MDRD) Af Amer 339, Est GFR (MDRD) Non-Af 280, BUN/Creatinine Ratio 30.0 H, Glucose 107 H, Calcium 8.4 L Micro: Microbiology 12/01/21 08:47 Mucosa - Nasopharyngeal Respiratory Panel (PCR) - Final 11/30/21 11:53 Sputum, Tracheal Aspirate Gram Stain - Final 11/30/21 11:53 Sputum, Tracheal Aspirate Respiratory Culture - Preliminary Gram negative lyn 11/30/21 11:50 Nasal Secretion SARS-CoV-2 & FLU Antigen (Rapid) - Final ABG Data ABG results: ABG 12/01/21 12:58 Specimen Type ART Sample Site R Brach pH 7.45 Bicarbonate Actual 21.5 L Total CO2 22 Base Excess -3 L O2 Saturation 94 L ABG pCO2 31.2 L ABG pO2 65 L Tutu Test Negative O2 Delivery Device Adult Vent Liter Flow 3.0 Vent Mode home vent Radiography Diagnostic Testing: Radiology Impression Chest X-Ray 12/01/21 12:25 IMPRESSION: No acute abnormality is seen. Electronically Signed: Matti Greer MD at 14:07 EDT , KUB X-Ray 12/01/21 12:25 IMPRESSION: Nonspecific bowel gas pattern. Gastrostomy tube is seen within the stomach. A small caliber catheter is seen in the right lower quadrant. Electronically Signed: Matti Greer MD at 14:09 EDT , Physical Exam Const Constitutional Narrative: Laying in bed, appears anxious at times HEENT HEENT Narrative: Tongue protruding,per mother normal Eyes Eyes Narrative: Open, not purposefully looking Neck Neck Narrative: Thick Resp Resp Narrative: Tachypneic on initial exam, some crackles on left side >R Cardio Cardio Narrative: tachycardic but regular rhythm, improving GI GI Narrative: Slightly firm, does not appear to be in pain when palpating Extremity Extremity Narrative: moving all extremities Neuro Neuro Narrative: Not talking, does not follow commands at time of exam Psych Psych Narrative: anxious Assessment & Plan Assessment/Plan (1) Hypoxia: PLAN: Plan #Hypoxia in a patient with chronic hypoxic respiratory failure * Concerning for ventilator associated pneumonia as mother has noticed that he has had increased sputum production with sputum being yellowish. He could not be transitioned to his 4 L of nasal cannula essentially worse during the day and needed to be on his vent as he got hypoxic. * Sputum cultures ordered and showing gram neg rods. CTA no PE but concern for RUL consolidation, ?aspiration pneumonia * On IV zosyn * Breathing treatments bronchodilators. Titrate oxygen maintain saturation above 90%. * Critical care consulted for management of vent. * Continue events per current home settings. * Pt with possible mucous plugging + anxiety given tachycardia and tachypneia this morning that responded partially to suctioning and improved significantly with ativan, monitor closely #lactic acidosis minimally elevated during time of distress resolved #Cerebral palsy with spastic quadriplegia * On baclofen and Ativan as needed * supportive care #Seizure disorder: On phenobarbital and gabapentin. #GERD: On PPI #Nutrition: On tube feeding. IV Zofran as needed. DVT prophylaxis: Lovenox Charges/Coding Visit Charges Inpatient E&M: 15773 Subs Hosp L2
[2021-12-01] MEDS: Jevity 1.5 1,000 ML 50 ML GT (17:42)
[2021-12-01 18:16] LABS: Lactic Acid 1.2 mmol/L (0.4-1.9)
[2021-12-01] MEDS: 0.9% Saline Lock 10 ML Syringe IV (22:28)
[2021-12-02] VITALS (12 sets, daily range): BP systolic 103–187; BP diastolic 60–113; PULSE 71–117; RESP 13–20; TEMP 36.2–37; O2SAT 91–98
[2021-12-02] MEDS: Nystatin Powder 15gm Bottle 1 APPLIC TOPICAL ×3 (06:14→21:27)
[2021-12-02] MEDS: Metoclopramide 10 MG/10 ML UDC 5 MG GT ×3 (06:15→21:29)
[2021-12-02 06:35] LABS: Absolute Lymphocyte Count 1.63 X10^3/uL (0.83-4.51); Absolute Neutrophil Count 3.9 X10^3/uL (2.0-7.7); Basophil# 0.02 X10^3/uL; Basophil% 0.3 % (0-1); Eosinophil# 0.19 X10^3/uL; Hemoglobin 10.9 g/dL (13.0-16.5); Lymphocyte # 1.63 X10^3/ul (0.83-4.51); Lymphocyte % 25.3 % (19-41); Mean Corp Hgb Conc 32.1 g/dL (32-36); Mean Corpuscular Volume 87.4 fL (80-94); Mean Platelet Vol. 10.2 fl (6.2-12.0); Monocyte# 0.72 X10^3/uL; Monocyte% 11.2 % (0-10); NRBC Flagged by Analyzer 0 % (0-5); Neutrophil # 3.87 X10^3/uL (2.7-7.7); Platelet Count 165 K/mm3 (150-450); RBC Distribution Width CV 13.9 % (11.6-14.6); RBC Distribution Width SD 44.1 fl (35.1-43.9); Red Blood Count 3.89 M/mm3 (4.6-6.2); White Blood Count 6.4 K/mm3 (4.4-11.0)
[2021-12-02] MEDS: BACLOFEN 5 MG/ML 20 MG PO ×4 (06:40→23:45)
[2021-12-02 07:11] LABS: ALB/GLOB Ratio 0.6 RATIO (0.9-2.4); AST(SGOT) 23 U/L (15-37); Alanine Aminotransfer ALT/SGPT 27 U/L (16-61); Albumin, Serum 2.8 g/dL (3.2-5.0); Alkaline Phosphatase 160 U/L (45-117); Anion Gap 9 (5-15); BUN 10 mg/dL (7-18); BUN/Creat Ratio 33.3 RATIO (10-20); Calcium,Total 8.3 mg/dL (8.5-10.1); Chloride 108 mmol/L (98-107); EST Glomerular Filtration Rate 353 mL/min (>60); Est Glom Filt Rate - Afr Amer 427 mL/min (>60); Globulin 4.9 g/dL (2.2-4.2); Glucose 114 mg/dL (74-106); Magnesium 2.2 mg/dL (1.6-2.6); Potassium 3.5 mmol/L (3.5-5.1); Protein, Total 7.7 g/dL (6.4-8.2); Sodium Level 141 mmol/L (136-145)
--- NOTE | 2021-12-02 08:16 | PN.HOSP_ITS ---
Subjective Subjective DOS 12/02/21 CC: f.u pneumonia Pt seen at bedside today with mother. HR improved into normal range, tachypnea improving but sats remain low 90's when awake. Remains on vent. Continues to have bulging out of ostomy and irritation. Family reports appt with Dr. Simon today to address this and requests c/s. Given report of worsening and now irritation with some bleeding overnight reported this seems reasonable. Continues to have secretions, no other new complaints reported. Objective Data Objective Data Vital Signs: Vital Signs Temp Pulse Resp BP Pulse Ox O2 Del Method O2 Flow Rate 98.4 F 96 20 H 128/86 H 96 Mechanical Ventilator 4 12/02/21 06:00 12/02/21 06:00 12/02/21 06:00 12/02/21 06:00 12/02/21 06:00 12/02/21 07:41 12/02/21 06:00 Oxygen Flow Rate (L/min) 4 Oxygen Delivery Method Mechanical Ventilator Weight: 74.888 kg Body Mass Index (BMI) 32.2 Intake & Output: Intake and Output for Last 24 Hours 11/30/21 12/01/21 12/02/21 23:59 23:59 23:59 Intake Total 550 / 550 4110 / 4110 950 / 950 Output Total 150 / 150 Balance 550 / 550 3960 / 3960 950 / 950 Lab / Micro Data Result Diagrams: 12/02/21 05:56 12/02/21 05:56 Labs: Laboratory Results - last 24 hr 12/01/21 12:13: Lactic Acid 2.3 H* 12/01/21 13:35: Sodium 141, Potassium 3.5, Chloride 109 H, Carbon Dioxide 23.0, Anion Gap 9, BUN 11, Creatinine 0.37 L, Estim Creat Clear Calc 189.56, Est GFR (MDRD) Af Amer 339, Est GFR (MDRD) Non-Af 280, BUN/Creatinine Ratio 30.0 H, Glucose 107 H, Calcium 8.4 L 12/01/21 17:20: Lactic Acid 1.2 12/02/21 05:56: WBC 6.4, RBC 3.89 L, Hgb 10.9 L, Hct 34.0 L, MCV 87.4, MCH 28.0, MCHC 32.1, RDW Std Deviation 44.1 H, RDW Coeff of Emilee 13.9, Plt Count 165, MPV 10.2, Immature Gran % (Auto) 0.200, Neut % (Auto) 60.0, Lymph % (Auto) 25.3, Haywood % (Auto) 11.2 H, Eos % (Auto) 3.0, Baso % (Auto) 0.3, Absolute Neuts (auto) 3.9, Absolute Lymphs (auto) 1.63, Nucleated RBC % 0 12/02/21 05:56: Sodium 141, Potassium 3.5, Chloride 108 H, Carbon Dioxide 24.0, Anion Gap 9, BUN 10, Creatinine 0.30 L, Estim Creat Clear Calc 233.80, Est GFR (MDRD) Af Amer 427, Est GFR (MDRD) Non-Af 353, BUN/Creatinine Ratio 33.3 H, Glucose 114 H, Calcium 8.3 L, Magnesium 2.2, Total Bilirubin 0.30, AST 23, ALT 27, Alkaline Phosphatase 160 H, Total Protein 7.7, Albumin 2.8 L, Globulin 4.9 H , Albumin/Globulin Ratio 0.6 L Micro: Microbiology 12/01/21 08:47 Mucosa - Nasopharyngeal Respiratory Panel (PCR) - Final 11/30/21 11:53 Sputum, Tracheal Aspirate Gram Stain - Final 11/30/21 11:53 Sputum, Tracheal Aspirate Respiratory Culture - Preliminary Gram negative lyn 11/30/21 11:50 Nasal Secretion SARS-CoV-2 & FLU Antigen (Rapid) - Final ABG Data ABG results: ABG 12/01/21 12:58 Specimen Type ART Sample Site R Brach pH 7.45 Bicarbonate Actual 21.5 L Total CO2 22 Base Excess -3 L O2 Saturation 94 L ABG pCO2 31.2 L ABG pO2 65 L Tutu Test Negative O2 Delivery Device Adult Vent Liter Flow 3.0 Vent Mode home vent Radiography Diagnostic Testing: Radiology Impression Chest X-Ray 12/01/21 12:25 IMPRESSION: No acute abnormality is seen. Electronically Signed: Matti Greer MD at 14:07 EDT , KUB X-Ray 12/01/21 12:25 IMPRESSION: Nonspecific bowel gas pattern. Gastrostomy tube is seen within the stomach. A small caliber catheter is seen in the right lower quadrant. Electronically Signed: Matti Greer MD at 14:09 EDT , Physical Exam Const Constitutional Narrative: Laying in bed, appears anxious at times HEENT normocephalic Eyes Eyes Narrative: Open, not purposefully looking Neck Neck Narrative: Thick Resp Resp Narrative: Tachypneic on initial exam, some crackles on left side >R Cardio regular rate and regular rhythm GI normal to inspection, nondistended, normoactive bowel sounds, soft to palpation and non-tender Extremity Extremity Narrative: moving all extremities Neuro Neuro Narrative: Not talking, does not follow commands at time of exam Psych Psych Narrative: anxious Assessment & Plan Assessment/Plan (1) Hypoxia: PLAN: Plan #Hypoxia in a patient with chronic hypoxic respiratory failure * Concerning for ventilator associated pneumonia as mother has noticed that he has had increased sputum production with sputum being yellowish. He could not be transitioned to his 4 L of nasal cannula essentially worse during the day and needed to be on his vent as he got hypoxic. * Sputum cultures ordered and showing gram neg rods- pseudomonas growing. CTA no PE but concern for RUL consolidation, ?aspiration pneumonia * On IV zosyn * Breathing treatments bronchodilators. Titrate oxygen maintain saturation above 90%. * Critical care consulted for management of vent, appreciate recs. * Continue events per current home settings. * 12/01 Pt with possible mucous plugging + anxiety given tachycardia and tachypnea this morning that responded partially to suctioning and improved significantly with ativan, monitor closely * 12/02: Improvement in tachypnia and tachycardia, O2 sat low 90's, still vent dependent. * Continue present management, slowly improving. #Ostomy prolapse Appears to be prolapse around the ostomy which family reports pt had appt with Dr. Simon today to address Mother reports it is worsening Per mother and staff there was irritation with bleeding/oozing overnight Minimal red in ostomy today but irritation evident Family requests c/s, given worsening and irritation this seems reasonable #lactic acidosis minimally elevated during time of distress resolved #Cerebral palsy with spastic quadriplegia * On baclofen and Ativan as needed * supportive care #Seizure disorder: On phenobarbital and gabapentin. #GERD: On PPI #Nutrition: On tube feeding. IV Zofran as needed. DVT prophylaxis: Lovenox Charges/Coding Visit Charges Inpatient E&M: 41946 Subs Hosp L2
--- NOTE | 2021-12-02 08:33 | PN.CC_ITS ---
Assessment & Plan Assessment/Plan (1) Chronic respiratory failure: QUALIFIERS: Respiratory failure complication: hypoxia and hypercapnia Qualified Code(s): J96.11 - Chronic respiratory failure with hypoxia; J96.12 - Chronic respiratory failure with hypercapnia PLAN: Plan RECOMMENDATIONS: 1. Continue vent support with SIMV throughout the day and night for now. 2. Wean oxygen as tolerated for saturations greater than 90%. 3. Continue empiric antimicrobials, pending finalized culture results. 4. Continue aggressive bronchopulmonary hygiene with CoughAssist and vest therapy. 5. Continue nutritional support via G-tube. 6. Monitor fluid status closely IMPRESSIONS: 1.??Acute on chronic hypoxic respiratory failure secondary to gram-negative pneumonia Clinical suspicion for mucous plugging in the setting of gram-negative pn eum[place] as precipitating etiology for acute presentation. Patient is at risk for pseudomonal infection and previous cultures have shown resistance to ciprofloxacin and Levaquin. Recommend continuing ventilatory support with SIMV per home regimen throughout the day and night. Continue empiric antimicrobials, pending finalized culture results. Cannot exclude the need for IV antibiotics at discharge pending cultures continue aggressive bronchopulmonary hygiene in the form of vest therapy and CoughAssist. Continue to wean oxygen as tolerated. Continue nutritional support via G-tube. Continue as needed bronchodilator therapy. 2.??Cerebral palsy/spastic quadriplegia/seizure disorder/GERD/history of PE Complicates care, management, recovery and prognosis.? Okay to continue with baseline medications from my perspective.? This note was generated with [employer] dictation software. It may contain incorrect words, spelling, and punctuation that were not noted in checking the note before signing. Subjective Subjective Patient doing okay from an oxygenation standpoint. Patient still with copious secretions that appear yellow to slightly green. These are relatively thin. No mucous plugging events noted. Patient's mother is not reporting any hemoptysis. Objective Data Objective Data Vital Signs: Vital Signs Temp Pulse Resp BP Pulse Ox O2 Del Method O2 Flow Rate 36.9 C 96 20 H 128/86 H 96 Mechanical Ventilator 4 12/02/21 06:00 12/02/21 06:00 12/02/21 06:00 12/02/21 06:00 12/02/21 06:00 12/02/21 07:41 12/02/21 06:00 Oxygen Flow Rate (L/min) 4 Oxygen Delivery Method Mechanical Ventilator Weight: 74.888 kg Body Mass Index (BMI) 32.2 Intake & Output: Intake and Output for Last 24 Hours 11/30/21 12/01/21 12/02/21 23:59 23:59 23:59 Intake Total 550 / 550 4110 / 4110 950 / 950 Output Total 150 / 150 Balance 550 / 550 3960 / 3960 950 / 950 Lab / Micro Data Attestation: I reviewed the patient's lab results. Result Diagrams: 12/02/21 05:56 12/02/21 05:56 Labs: Laboratory Results - last 24 hr 12/01/21 12:13: Lactic Acid 2.3 H* 12/01/21 13:35: Sodium 141, Potassium 3.5, Chloride 109 H, Carbon Dioxide 23.0, Anion Gap 9, BUN 11, Creatinine 0.37 L, Estim Creat Clear Calc 189.56, Est GFR (MDRD) Af Amer 339, Est GFR (MDRD) Non-Af 280, BUN/Creatinine Ratio 30.0 H, Glucose 107 H, Calcium 8.4 L 12/01/21 17:20: Lactic Acid 1.2 12/02/21 05:56: WBC 6.4, RBC 3.89 L, Hgb 10.9 L, Hct 34.0 L, MCV 87.4, MCH 28.0, MCHC 32.1, RDW Std Deviation 44.1 H, RDW Coeff of Emilee 13.9, Plt Count 165, MPV 10.2, Immature Gran % (Auto) 0.200, Neut % (Auto) 60.0, Lymph % (Auto) 25.3, [place] % (Auto) 11.2 H, Eos % (Auto) 3.0, Baso % (Auto) 0.3, Absolute Neuts (auto) 3.9, Absolute Lymphs (auto) 1.63, Nucleated RBC % 0 12/02/21 05:56: Sodium 141, Potassium 3.5, Chloride 108 H, Carbon Dioxide 24.0, Anion Gap 9, BUN 10, Creatinine 0.30 L, Estim Creat Clear Calc 233.80, Est GFR (MDRD) Af Amer 427, Est GFR (MDRD) Non-Af 353, BUN/Creatinine Ratio 33.3 H, Glucose 114 H, Calcium 8.3 L, Magnesium 2.2, Total Bilirubin 0.30, AST 23, ALT 27, Alkaline Phosphatase 160 H, Total Protein 7.7, Albumin 2.8 L, Globulin 4.9 H , Albumin/Globulin Ratio 0.6 L Micro: Microbiology 12/01/21 08:47 Mucosa - Nasopharyngeal Respiratory Panel (PCR) - Final 11/30/21 11:53 Sputum, Tracheal Aspirate Gram Stain - Final 11/30/21 11:53 Sputum, Tracheal Aspirate Respiratory Culture - Preliminary Gram negative lyn 11/30/21 11:50 Nasal Secretion SARS-CoV-2 & FLU Antigen (Rapid) - Final ABG Data ABG results: ABG 12/01/21 12:58 Specimen Type ART Sample Site R Brach pH 7.45 Bicarbonate Actual 21.5 L Total CO2 22 Base Excess -3 L O2 Saturation 94 L ABG pCO2 31.2 L ABG pO2 65 L Tutu Test Negative O2 Delivery Device Adult Vent Liter Flow 3.0 Vent Mode home vent Radiography Diagnostic Testing: Radiology Impression Chest X-Ray 12/01/21 12:25 IMPRESSION: No acute abnormality is seen. Electronically Signed: Matti Greer MD at 14:07 EDT , KUB X-Ray 12/01/21 12:25 IMPRESSION: Nonspecific bowel gas pattern. Gastrostomy tube is seen within the stomach. A small caliber catheter is seen in the right lower quadrant. Electronically Signed: Matti Greer MD at 14:09 EDT , Physical Exam Const Constitutional Narrative: Baseline neurological status. General Appearance: well developed and patient mechanically ventilated HEENT normocephalic and head/scalp atraumatic Eyes PERRL and conjunctivae normal Neck supple Neck Narrative: Tracheostomy site intact. Chest inspection of chest normal Resp Resp Narrative: Copious secretions suctioned with improvement in rhonchi Auscultation: rhonchi, wheezes and diminished lung sounds Cardio S1 normal heart sound, S2 normal heart sound, no murmurs, no rub and no gallops Rate: tachycardic GI normal to inspection, nondistended, normoactive bowel sounds Inspection: GI tube present and ostomy present Extremity Extremity Narrative: Baseline contractures noted General Extremity: clubbing and edema Skin no rashes or lesions noted Neuro Neuro Narrative: Baseline neurological status with spastic quadriplegia Psych Mood & Affect: flat affect Charges/Coding Visit Charges Inpatient E&M: 01394 Subs Hosp L3
[2021-12-02] MEDS: Enoxaparin 40 MG/0.4 ML Syringe SC (10:12)
[2021-12-02] MEDS: Acetaminophen 650 MG/20 ML UDC GT ×3 (10:12→23:44)
[2021-12-02] MEDS: Doxazosin 1 MG Tablet 2 MG GT (10:15)
[2021-12-02] MEDS: Ascorbic Acid 500 MG Tablet GT (10:15)
[2021-12-02] MEDS: Ferrous Sulfate 300 MG/5 ML UDC 75 MG GT (10:16)
[2021-12-02] MEDS: Mag Hydrox/Al Hydrox/Simeth 30 ML UDC 20 ML GT ×4 (10:17→21:28)
[2021-12-02] MEDS: NYSTATIN 500,000 UNIT/5 ML UDC 100000 UNIT GT ×4 (10:18→21:29)
[2021-12-02] MEDS: GABAPENTIN 250 MG/5 ML SOLUTION 500 MG GT ×4 (10:19→21:26)
[2021-12-02] MEDS: Phenobarbital 20 MG/5 ML UDC 60 MG GT ×2 (10:32→21:34)
[2021-12-02] MEDS: PLECANATIDE 3 MG TABLET PO (11:55)
[2021-12-02] MEDS: Famotidine 20 MG Tablet GT (11:55)
--- NOTE | 2021-12-02 15:45 | WOUNDNOTE ---
Colostomy appliance changed per mother's request. removed the current appliance. there was a small leak noted under the lateral edge of the flange. skin intact. stoma is beefy red and prolapsed. the prolapse does not appear to be as bad as the last admission. pt has continually gained weight which may be contributing to the prolapse. with each cough the prolapse protrudes and then will retract. cleansed the peristomal skin with warm water. pat dry. applied a new 4 flat 2 piece [place] appliance with a small amount of stoma paste. pt tolerated well. mother not currently in room at this time.
[2021-12-02] MEDS: Jevity 1.5 1,000 ML 50 ML GT (16:56)
[2021-12-03] VITALS (17 sets, daily range): BP systolic 92–157; BP diastolic 55–104; PULSE 69–136; RESP 14–27; TEMP 2.7–37.1; O2SAT 92–98
[2021-12-03 04:34] LABS: Absolute Lymphocyte Count 1.73 X10^3/uL (0.83-4.51); Absolute Neutrophil Count 2.6 X10^3/uL (2.0-7.7); Basophil# 0.01 X10^3/uL; Basophil% 0.2 % (0-1); Eosinophil# 0.55 X10^3/uL; Eosinophils% 10.1 % (0-5); Hematocrit 33.6 % (40-54); Hemoglobin 10.3 g/dL (13.0-16.5); Lymphocyte # 1.73 X10^3/ul (0.83-4.51); Lymphocyte % 31.7 % (19-41); Mean Corp Hgb Conc 30.7 g/dL (32-36); Mean Corpuscular Hgb 27.6 pg (27.0-32.0); Mean Corpuscular Volume 90.1 fL (80-94); Mean Platelet Vol. 9.9 fl (6.2-12.0); Monocyte# 0.55 X10^3/uL; Monocyte% 10.1 % (0-10); NRBC Flagged by Analyzer 0 % (0-5); Neutrophil # 2.59 X10^3/uL (2.7-7.7); Neutrophil % 47.5 % (47-70); Platelet Count 151 K/mm3 (150-450); RBC Distribution Width SD 46.2 fl (35.1-43.9); Red Blood Count 3.73 M/mm3 (4.6-6.2); White Blood Count 5.5 K/mm3 (4.4-11.0)
[2021-12-03 04:59] LABS: ALB/GLOB Ratio 0.6 RATIO (0.9-2.4); AST(SGOT) 21 U/L (15-37); Alanine Aminotransfer ALT/SGPT 28 U/L (16-61); Albumin, Serum 2.7 g/dL (3.2-5.0); Alkaline Phosphatase 137 U/L (45-117); Anion Gap 6 (5-15); BUN 12 mg/dL (7-18); BUN/Creat Ratio 34.8 RATIO (10-20); Calcium,Total 8.3 mg/dL (8.5-10.1); Chloride 109 mmol/L (98-107); Creatinine, Serum 0.34 mg/dL (0.70-1.30); EST Glomerular Filtration Rate 301 mL/min (>60); Est Glom Filt Rate - Afr Amer 364 mL/min (>60); Estimated Creatinine Clearance 206.29 ml/min; Globulin 4.9 g/dL (2.2-4.2); Glucose 124 mg/dL (74-106); Potassium 3.6 mmol/L (3.5-5.1); Protein, Total 7.6 g/dL (6.4-8.2); Sodium Level 143 mmol/L (136-145)
[2021-12-03] MEDS: Nystatin Powder 15gm Bottle 1 APPLIC TOPICAL ×3 (05:26→21:08)
[2021-12-03] MEDS: Metoclopramide 10 MG/10 ML UDC 5 MG GT ×3 (05:27→21:11)
[2021-12-03] MEDS: BACLOFEN 5 MG/ML 20 MG PO ×3 (05:27→18:18)
[2021-12-03] MEDS: 0.9% Saline Lock 10 ML Syringe IV ×2 (05:27→18:29)
[2021-12-03] MEDS: Acetaminophen 650 MG/20 ML UDC GT ×2 (06:20→14:58)
--- NOTE | 2021-12-03 07:46 | PN.HOSP_ITS ---
Subjective Subjective DOS 12/03/21 CC [] [] Objective Data Objective Data Vital Signs: Vital Signs Temp Pulse Resp BP Pulse Ox O2 Del Method O2 Flow Rate 97.3 F L 78 20 H 141/96 H 97 Mechanical Ventilator 4 12/03/21 03:25 12/03/21 03:25 12/03/21 03:25 12/03/21 03:25 12/03/21 03:25 12/03/21 03:30 12/03/21 03:30 Oxygen Flow Rate (L/min) 4 Oxygen Delivery Method Mechanical Ventilator Weight: 74.888 kg Body Mass Index (BMI) 32.2 Intake & Output: Intake and Output for Last 24 Hours 12/01/21 12/02/21 12/03/21 23:59 23:59 23:59 Intake Total 4110 / 4110 3007 / 3480.33 1057.50 / 1057.50 Output Total 150 / 150 450 / 450 150 / 150 Balance 3960 / 3960 2557 / 3030.33 907.50 / 907.50 Lab / Micro Data Result Diagrams: 12/03/21 04:20 12/03/21 04:20 Labs: Laboratory Results - last 24 hr 12/03/21 04:20: WBC 5.5, RBC 3.73 L, Hgb 10.3 L, Hct 33.6 L, MCV 90.1, MCH 27.6, MCHC 30.7 L, RDW Std Deviation 46.2 H, RDW Coeff of Emilee 14.0, Plt Count 151, MPV 9.9, Immature Gran % (Auto) 0.400, Neut % (Auto) 47.5, Lymph % (Auto) 31.7, [place] % (Auto) 10.1 H, Eos % (Auto) 10.1 H, Baso % (Auto) 0.2, Absolute Neuts (auto) 2.6, Absolute Lymphs (auto) 1.73, Nucleated RBC % 0 12/03/21 04:20: Sodium 143, Potassium 3.6, Chloride 109 H, Carbon Dioxide 28.0, Anion Gap 6, BUN 12, Creatinine 0.34 L, Estim Creat Clear Calc 206.29, Est GFR (MDRD) Af Amer 364, Est GFR (MDRD) Non-Af 301, BUN/Creatinine Ratio 34.8 H, Glucose 124 H, Calcium 8.3 L, Total Bilirubin 0.20, AST 21, ALT 28, Alkaline Phosphatase 137 H, Total Protein 7.6, Albumin 2.7 L, Globulin 4.9 H, Albumin/Globulin Ratio 0.6 L Micro: Microbiology 11/30/21 11:53 Sputum, Tracheal Aspirate Gram Stain - Final 11/30/21 11:53 Sputum, Tracheal Aspirate Respiratory Culture - Final Pseudomonas aeroginosa 12/01/21 08:47 Mucosa - Nasopharyngeal Respiratory Panel (PCR) - Final 11/30/21 11:50 Nasal Secretion SARS-CoV-2 & FLU Antigen (Rapid) - Final Physical Exam Const Constitutional Narrative: Laying in bed, appears anxious at times HEENT normocephalic Eyes Eyes Narrative: Open, not purposefully looking Neck Neck Narrative: Thick Resp Resp Narrative: Tachypneic on initial exam, some crackles on left side >R Cardio regular rate and regular rhythm Cardio Narrative: tachycardic but regular rhythm, improving GI normal to inspection, nondistended, normoactive bowel sounds, soft to palpation and non-tender GI Narrative: Slightly firm, does not appear to be in pain when palpating Extremity Extremity Narrative: moving all extremities Neuro Neuro Narrative: Not talking, does not follow commands at time of exam Psych Psych Narrative: anxious Assessment & Plan Assessment/Plan (1) Hypoxia: PLAN: Plan #Hypoxia in a patient with chronic hypoxic respiratory failure * Concerning for ventilator associated pneumonia as mother has noticed that he has had increased sputum production with sputum being yellowish. He could not be transitioned to his 4 L of nasal cannula essentially worse during the day and needed to be on his vent as he got hypoxic. * Sputum cultures ordered and showing gram neg rods- pseudomonas growing. CTA no PE but concern for RUL consolidation, ?aspiration pneumonia * Resp panel and covid negative * On IV zosyn * Breathing treatments bronchodilators. Titrate oxygen maintain saturation above 90%. * Critical care consulted for management of vent, appreciate recs. * Continue events per current home settings. * 12/01 Pt with possible mucous plugging + anxiety given tachycardia and tachypnea this morning that responded partially to suctioning and improved significantly with ativan, monitor closely * 12/02: Improvement in tachypnia and tachycardia, O2 sat low 90's, still vent dependent. * 12/03: Continue present management, slowly improving, remains on zosyn * Bronchopulm hygiene #Ostomy prolapse Appears to be prolapse around the ostomy which family reports pt had appt with Dr. Simon today to address Mother reports it is worsening Per mother and staff there was irritation with bleeding/oozing overnight Minimal red in ostomy today but irritation evident Family requests c/s, given worsening and irritation this seems reasonable #lactic acidosis minimally elevated during time of distress resolved #Cerebral palsy with spastic quadriplegia * On baclofen and Ativan as needed * supportive care #Seizure disorder: On phenobarbital and gabapentin. #GERD: On PPI #Nutrition: On tube feeding. IV Zofran as needed. DVT prophylaxis: Lovenox Charges/Coding Visit Charges Inpatient E&M: 46728 Subs Hosp L2
--- NOTE | 2021-12-03 08:16 | PN.CC_ITS ---
Documented by User: Dr. Jacek Monsalve MD 12/03/21 14:59 Assessment & Plan Assessment/Plan (1) Chronic respiratory failure: QUALIFIERS: Respiratory failure complication: hypoxia and hypercapnia Qualified Code(s): J96.11 - Chronic respiratory failure with hypoxia; J96.12 - Chronic respiratory failure with hypercapnia PLAN: Plan RECOMMENDATIONS: 1. Continue vent support with SIMV throughout the day and night. 2. Wean oxygen as tolerated for saturations greater than 90%. 3. Continue Zosyn as appropriate coverage for fluoroquinolone resistant Pseudomonas. 4. Consult infectious disease and case management for home IV antibiotic coordination. 5. Continue aggressive bronchopulmonary hygiene with CoughAssist and vest therapy. 6. Continue nutritional support via G-tube. 7. Monitor fluid status closely. IMPRESSIONS: 1. Acute on chronic hypoxic respiratory failure secondary to Pseudomonas pneumonia Clinical suspicion for mucous plugging in the setting of pseudomonal pneumonia as precipitating etiology for acute presentation. Patient has had previous pseudomonal infections with resistance to ciprofloxacin and Levaquin. It appears to be a similar pseudomonal infection at this time. Recommend continuing ventilatory support with SIMV per home regimen throughout the day and night. Continue aggressive bronchopulmonary hygiene in the form of vest therapy and CoughAssist. Continue bronchodilator therapy as needed. Wean oxygen as tolerated tolerated for saturations greater than 90% with goal to return to baseline nasal cannula during the day. Infectious disease and case management consulted to coordinate home IV antibiotics at discharge. Mother is comfortable with this plan. Anticipate discharge in the next 24 to 48 hours. 2. Cerebral palsy/spastic quadriplegia/seizure disorder/GERD/history of PE Complicates care, management, recovery and prognosis. Subjective Subjective Patient awake and looking around for assessment with mother at bedside. Mother states that patient had a restful night with less secretions. Dr. Monsalve?spoke with patient's mother at the bedside. Secretions continue to improve, but there is some concern the patient has remained on the ventilator throughout the day. Patient's mother is also recently placed on antibiotics secondary to sinusitis. Objective Data Objective Data Vital Signs: Vital Signs Temp Pulse Resp BP Pulse Ox O2 Del Method O2 Flow Rate 36.9 C 92 14 139/90 H 98 Mechanical Ventilator 4.5 12/03/21 07:53 12/03/21 07:53 12/03/21 07:53 12/03/21 07:53 12/03/21 07:53 12/03/21 07:51 12/03/21 07:53 Oxygen Flow Rate (L/min) 4.5 Oxygen Delivery Method Mechanical Ventilator Weight: 74.888 kg Body Mass Index (BMI) 32.2 Intake & Output: Intake and Output for Last 24 Hours 12/01/21 12/02/21 12/03/21 23:59 23:59 23:59 Intake Total 4110 / 4110 3007 / 3480.33 1057.50 / 1057.50 Output Total 150 / 150 450 / 450 150 / 150 Balance 3960 / 3960 2557 / 3030.33 907.50 / 907.50 Lab / Micro Data Result Diagrams: 12/03/21 04:20 12/03/21 04:20 Labs: Laboratory Results - last 24 hr 12/03/21 04:20: WBC 5.5, RBC 3.73 L, Hgb 10.3 L, Hct 33.6 L, MCV 90.1, MCH 27.6, MCHC 30.7 L, RDW Std Deviation 46.2 H, RDW Coeff of Emilee 14.0, Plt Count 151, MPV 9.9, Immature Gran % (Auto) 0.400, Neut % (Auto) 47.5, Lymph % (Auto) 31.7, [place] % (Auto) 10.1 H, Eos % (Auto) 10.1 H, Baso % (Auto) 0.2, Absolute Neuts (auto) 2.6, Absolute Lymphs (auto) 1.73, Nucleated RBC % 0 12/03/21 04:20: Sodium 143, Potassium 3.6, Chloride 109 H, Carbon Dioxide 28.0, Anion Gap 6, BUN 12, Creatinine 0.34 L, Estim Creat Clear Calc 206.29, Est GFR (MDRD) Af Amer 364, Est GFR (MDRD) Non-Af 301, BUN/Creatinine Ratio 34.8 H, Glucose 124 H, Calcium 8.3 L, Total Bilirubin 0.20, AST 21, ALT 28, Alkaline Phosphatase 137 H, Total Protein 7.6, Albumin 2.7 L, Globulin 4.9 H, Albumin/Gl obulin Ratio 0.6 L Micro: Microbiology 11/30/21 11:53 Sputum, Tracheal Aspirate Gram Stain - Final 11/30/21 11:53 Sputum, Tracheal Aspirate Respiratory Culture - Final Pseudomonas aeroginosa 12/01/21 08:47 Mucosa - Nasopharyngeal Respiratory Panel (PCR) - Final 11/30/21 11:50 Nasal Secretion SARS-CoV-2 & FLU Antigen (Rapid) - Final Charges/Coding Visit Charges Inpatient E&M: 75418 Subs Hosp L2 Documented by User: ZARI SEVERINO 12/03/21 09:46 Assessment & Plan Assessment/Plan (1) Chronic respiratory failure: QUALIFIERS: Respiratory failure complication: hypoxia and hypercapnia Qualified Code(s): J96.11 - Chronic respiratory failure with hypoxia; J96.12 - Chronic respiratory failure with hypercapnia PLAN: Plan RECOMMENDATIONS: 1. Continue vent support with SIMV throughout the day and night. 2. Wean oxygen as tolerated for saturations greater than 90%. 3. Continue Zosyn as appropriate coverage for fluoroquinolone resistant Pseudomonas. 4. Consult infectious disease and case management for home IV antibiotic coordination. 5. Continue aggressive bronchopulmonary hygiene with CoughAssist and vest therapy. 6. Continue nutritional support via G-tube. 7. Monitor fluid status closely. IMPRESSIONS: 1. Acute on chronic hypoxic respiratory failure secondary to Pseudomonas pneumonia Clinical suspicion for mucous plugging in the setting of pseudomonal pneumonia as precipitating etiology for acute presentation. Patient has had previous pseudomonal infections with resistance to ciprofloxacin and Levaquin. Recommend continuing ventilatory support with SIMV per home regimen throughout the day and night. Continue aggressive bronchopulmonary hygiene in the form of vest therapy and CoughAssist. Continue bronchodilator therapy as needed. Wean oxygen as tolerated tolerated for saturations greater than 90% with goal to return to baseline nasal cannula during the day. Infectious disease and case management consulted to coordinate home IV antibiotics at discharge. Mother is comfortable with this plan. 2. Cerebral palsy/spastic quadriplegia/seizure disorder/GERD/history of PE Complicates care, management, recovery and prognosis. Subjective Subjective Patient awake and looking around for assessment with mother at bedside. Mother states that patient had a restful night with less secretions. Objective Data Lab / Micro Data Attestation: I reviewed the patient's lab results. Result Diagrams: 12/03/21 04:20 12/03/21 04:20 Physical Exam Const alert and no apparent distress Constitutional Narrative: Middle-aged, quadriplegic male, appears comfortable and alert. General Appearance: cooperative and patient mechanically ventilated HEENT normocephalic, head/scalp atraumatic and moist oral mucous membranes Mouth: oral and palatal mucosa normal Eyes PERRL, EOMs intact bilaterally and conjunctivae normal Neck no lymphadenopathy and supple Neck Narrative: Tracheostomy site intact. General: tracheostomy present Lymph Lymphatic: no lymphadenopathy noted Chest inspection of chest normal Resp Resp Narrative: Scattered expiratory wheeze with diminished lung sounds. Secretions decreasin. Cardio regular rate, regular rhythm, S1 normal heart sound, S2 normal heart sound, no murmurs, no rub, no gallops and no JVD GI normal to inspection, nondistended, normoactive bowel sounds, soft to palpation and non-tender GI Narrative: Stoma pink and moist. Inspection: GI tube present and ostomy present Extremity Extremity Narrative: Baseline contractures noted. General Extremity: clubbing and edema Skin no rashes or lesions noted Neuro Neuro Narrative: Baseline neurologic status with spastic quadriplegia. Psych Mood & Affect: flat affect
--- NOTE | 2021-12-03 09:21 | CON.PCM.SX_ITS ---
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 He has a complex medical history and I reviewed his last CT scan shows parastomal hernia along with the prolapse containing bowel. I have seen this patient multiple times in the past and I have recommended multiple times the patient see her previous surgeon at [facility] for repair of this parastomal hernia. I explained to her that I do not have a lot of experience fixing these hernias and I would recommend tertiary repair due to his complex status. I will sign off the patient please contact me if anything further is needed. Luis Simon MD Pager: [facility] [address] [place] [address], [address] [place] [address] Office: HPI Consult Data Date of Consult: 12/03/21 HPI Narrative HPI Narrative: KRISS MICHAEL, is a 41 M who presents with pneumonia. Patient was scheduled to come into the visit me for parastomal hernia and prolapse and I am seeing him in the hospital instead. Patient's mother reports that he is stoma has been prolapsing more lately and there has been some bloody material in the colostomy bag. [facility] Medical History Acute dyspnea Cerebral palsy Debility Edema History of seizure disorder Iron deficiency anemia Nonrheumatic mitral valve prolapse Obesity Pulmonary embolism on left (06/14/19) Redundant colon Thrombocytopenia Tracheostomy in place Home Medications phenobarbital 20 mg/5 mL (4 mg/mL) oral elixir 60 mg G-tube BID pain 02/19/17 [History Last Taken 04/24/20 21:00] Lactobacillus acidophilus 1 cap G-tube DAILY gut health 02/04/18 [History Last Taken 04/24/20 09:00] metoclopramide HCl 5 mg/5 mL oral solution 5 mg feeding tube TID thrush 09/16/18 [History Last Taken 04/24/20 21:00] lorazepam 1 mg tablet 2 mg G-tube Q8 PRN Agitation 10/08/18 [History Last Taken 04/24/20 22:00] Cough Assist 1 dose .Route .MEDSUPPLY assist in clearing secretions 12/25/18 [History Last Taken Unknown] ferrous sulfate 15 mg iron (75 mg)/mL oral drops 75 mg G-tube DAILY supplement 1 02/24/18 [History Last Taken 04/24/20 16:00] oxygen concentrator 1 dose .Route .MEDSUPPLY second unit, 4 LPM cont all modalities 12/25/18 [History Last Taken Unknown] ondansetron HCl 4 mg tablet 5 ml feeding tube DAILY PRN Nausea 05/09/19 [History Last Taken Unknown] ascorbic acid (vitamin C) 500 mg/5 mL oral syrup 500 mg G-tube DAILY Check with primary doctor 08/04/19 [History Last Taken Unknown] gabapentin 250 mg/5 mL oral solution 500 mg G-tube 4X/DAY Check with primary doctor 09/26/19 [History Last Taken 04/25/20 06:00] albuterol sulfate 2.5 mg/3 mL (0.083 %) solution for nebulization 2.5 mg inhalation Q4H PRN Sob &/Or Wheezing 11/27/20 [History Last Taken Unknown] baclofen 5 mg/5 mL oral solution 20 mg G-tube Q6H Spasticity 11/27/20 [History Last Taken Unknown] esomeprazole magnesium 40 mg granules delayed release for susp 40 mg G-tube BID Check with primary doctor 11/27/20 [History Last Taken Unknown] famotidine 20 mg tablet (Pepcid) 20 mg feeding tube LUNCH Check with primary doc tor 11/27/20 [History Last Taken Unknown] guaifenesin 200 mg/5 mL oral liquid 200 mg feeding tube Q4H PRN Cough 11/27/20 [History Last Taken Unknown] lactose-reduced food with fiber 0.06 gram-1.2 kcal/mL oral liquid 1,000 ml G- tube DAILY Check with primary doctor 11/27/20 [History Last Taken Unknown] plecanatide 3 mg tablet 3 mg G-tube DAILY Check with primary doctor 11/27/20 [History Last Taken Unknown] simethicone 40 mg/0.6 mL oral drops,suspension 40 mg G-tube PRN PRN GAS 11/27/20 [History Last Taken Unknown] aluminum-mag hydroxide-simethicone 200 mg-200 mg-20 mg/5 mL oral susp 20 ml feeding tube 4X/DAY Check with primary doctor 01/11/21 [History Last Taken Unknown] nystatin 100,000 unit/mL oral suspension 1 ml buccal 4X/DAY Check with primary doctor 01/11/21 [History Last Taken Unknown] betamethasone dipropionate 0.05 % topical cream 1 applic topical BID Check with primary doctor 11/30/21 [History Last Taken Unknown] doxazosin 2 mg tablet 2 mg PO DAILY Check with primary doctor 11/30/21 [History Last Taken Unknown] Allergy/AdvReac Type Severity Reaction Status Date / Time cisapride monohydrate Allergy Rash Verified 11/30/21 11:10 [From Propulsid] house dust Allergy NEEDS Verified 11/30/21 11:10 FOLLOW-UP codeine AdvReac hallucinati Verified 11/30/21 11:10 ons metronidazole [From Flagyl] AdvReac Rash Verified 11/30/21 11:10 morphine AdvReac Hallucinati Verified 11/30/21 11:10 ons Family History Mother Hepatitis C Hypertension Father CAD (coronary artery disease) Atrial fibrillation Hypertension H/O heart artery stent Surgical History Colostomy in place Heel cord lengthening History of colostomy History of eye surgery History of gastrostomy tube placement History of open reduction and internal fixation (ORIF) procedure History of soft tissue release Status post insertion of intrathecal baclofen pump Social History household members: family housing: house current occupational status: disabled Smoking Status: Never smoker alcohol intake: never substance use type: does not use caffeine: No ROS Review of Systems ROS Unobtainable: due to mental status Physical Exam Const no apparent distress Lymph Lymphatic: no lymphadenopathy noted Resp Resp Narrative: Patient has tracheostomy and is on a ventilator GI GI Narrative: Patient does have some small amount of prolapse of the colostomy with no necrosis. Lab / Micro Data Result Diagrams: 12/03/21 04:20 12/03/21 04:20 Labs: Laboratory Results - last 24 hr 12/03/21 04:20: WBC 5.5, RBC 3.73 L, Hgb 10.3 L, Hct 33.6 L, MCV 90.1, MCH 27.6, MCHC 30.7 L, RDW Std Deviation 46.2 H, RDW Coeff of Emilee 14.0, Plt Count 151, MPV 9.9, Immature Gran % (Auto) 0.400, Neut % (Auto) 47.5, Lymph % (Auto) 31.7, [place] % (Auto) 10.1 H, Eos % (Auto) 10.1 H, Baso % (Auto) 0.2, Absolute Neuts (auto) 2.6, Absolute Lymphs (auto) 1.73, Nucleated RBC % 0 12/03/21 04:20: Sodium 143, Potassium 3.6, Chloride 109 H, Carbon Dioxide 28.0, Anion Gap 6, BUN 12, Creatinine 0.34 L, Estim Creat Clear Calc 206.29, Est GFR (MDRD) Af Amer 364, Est GFR (MDRD) Non-Af 301, BUN/Creatinine Ratio 34.8 H, Glucose 124 H, Calcium 8.3 L, Total Bilirubin 0.20, AST 21, ALT 28, Alkaline Phosphatase 137 H, Total Protein 7.6, Albumin 2.7 L, Globulin 4.9 H, Albumin /Globulin Ratio 0.6 L Micro: Microbiology 11/30/21 11:53 Sputum, Tracheal Aspirate Gram Stain - Final 11/30/21 11:53 Sputum, Tracheal Aspirate Respiratory Culture - Final Pseudomonas aeroginosa
--- NOTE | 2021-12-03 09:50 | WOUNDNOTE ---
talked with mother about ostomy supplies per request. supply numbers for the larger flange and high volume pouch was given. mother states she may need to eventually get the larger ones ordered, but for now plans to keep the same appliances. stated [facility] orders supplies for them. no further needs voiced at this time.
[2021-12-03] MEDS: Doxazosin 1 MG Tablet 2 MG GT (09:59)
[2021-12-03] MEDS: Ferrous Sulfate 300 MG/5 ML UDC 75 MG GT (09:59)
[2021-12-03] MEDS: GABAPENTIN 250 MG/5 ML SOLUTION 500 MG GT ×4 (10:00→21:08)
[2021-12-03] MEDS: Enoxaparin 40 MG/0.4 ML Syringe SC (10:02)
[2021-12-03] MEDS: Mag Hydrox/Al Hydrox/Simeth 30 ML UDC 20 ML GT ×4 (10:03→21:10)
[2021-12-03] MEDS: PLECANATIDE 3 MG TABLET PO (10:05)
[2021-12-03] MEDS: NYSTATIN 500,000 UNIT/5 ML UDC 100000 UNIT GT ×4 (10:05→21:36)
[2021-12-03] MEDS: Ascorbic Acid 500 MG Tablet GT (10:06)
[2021-12-03] MEDS: Phenobarbital 20 MG/5 ML UDC 60 MG GT ×2 (10:38→21:57)
--- NOTE | 2021-12-03 13:28 | CASEMGMT ---
Addendum entered by Veronica Mace 12/03/21 14:39: Call from Megan at [employer] and she states pt is covered at 100%. Megan's ext [phone] and she will be updated tomorrow on d/c date. Megan is aware pt is active with [facility]. Sher GRIMALDO CM Original Note: Per Dr. Hathaway, pt to be sent home with 7 days of IV antibx. Pt is already active with [facility] and call to them to update on IV antibx, voice understanding. Clinicals and IV antibx order faxed to [facility] w/ LAUREN order. This RN CM to room and pt's mother is updated on all. Pt's mother has done iv antibx several times in past for pt and requests [facility] for infusion company. Referral faxed to [facility]. Pt already has a port and plan is for rosenberg needle to be exchanged on day of discharge so that it will be good for the week of antibx at home. Mother and Johanna GRIMALDO updated on same, voice understanding. CM to follow. Sher GRIMALDO CM
--- NOTE | 2021-12-03 13:54 | PCM.CONS.GEN ---
Assessment & Plan Assessment/Plan (1) Cerebral palsy: (2) Chronic respiratory failure: QUALIFIERS: Respiratory failure complication: hypoxia and hypercapnia Qualified Code(s): J96.11 - Chronic respiratory failure with hypoxia; J96.12 - Chronic respiratory failure with hypercapnia (3) Pseudomonas pneumonia: PLAN: Port in place, will order 7 more days iv zosyn with weekly labs. Will follow, thank you, d/w watch case polisher HPI Consult Data Date of Consult: 12/03/21 HPI Narrative Reason for Consultation: pneumonia HPI Narrative: KRISS MICHAEL, is a 41 M with cerebral palsy, spastic quadriplegia, trach in place with chronic resp failure, presented 11/30 with several days hypoxia, dyspnea, increased sputum. Admitted to [facility] on zosyn, sx improving, getting close to baseline per parents. Full ROS unobtainable due to mental status [facility] Medical History Acute dyspnea Cerebral palsy Debility Edema History of seizure disorder Iron deficiency anemia Nonrheumatic mitral valve prolapse Obesity Pulmonary embolism on left (06/14/19) Redundant colon Thrombocytopenia Tracheostomy in place Home Medications phenobarbital 20 mg/5 mL (4 mg/mL) oral elixir 60 mg G-tube BID pain 02/19/17 [History Last Taken 04/24/20 21:00] Lactobacillus acidophilus 1 cap G-tube DAILY gut health 02/04/18 [History Last Taken 04/24/20 09:00] metoclopramide HCl 5 mg/5 mL oral solution 5 mg feeding tube TID thrush 09/16/18 [History Last Taken 04/24/20 21:00] lorazepam 1 mg tablet 2 mg G-tube Q8 PRN Agitation 10/08/18 [History Last Taken 04/24/20 22:00] Cough Assist 1 dose .Route .MEDSUPPLY assist in clearing secretions 12/25/18 [History Last Taken Unknown] ferrous sulfate 15 mg iron (75 mg)/mL oral drops 75 mg G-tube DAILY supplement 12/25/18 [History Last Taken 04/24/20 16:00] oxygen concentrator 1 dose .Route .MEDSUPPLY second unit, 4 LPM cont all modalities 12/25/18 [History Last Taken Unknown] ondansetron HCl 4 mg tablet 5 ml feeding tube DAILY PRN Nausea 05/09/19 [History Last Taken Unknown] ascorbic acid (vitamin C) 500 mg/5 mL oral syrup 500 mg G-tube DAILY Check with primary doctor 08/04/19 [History Last Taken Unknown] gabapentin 250 mg/5 mL oral solution 500 mg G-tube 4X/DAY Check with primary doctor 09/26/19 [History Last Taken 04/25/20 06:00] albuterol sulfate 2.5 mg/3 mL (0.083 %) solution for nebulization 2.5 mg inhalation Q4H PRN Sob &/Or Wheezing 11/27/20 [History Last Taken Unknown] baclofen 5 mg/5 mL oral solution 20 mg G-tube Q6H Spasticity 11/27/20 [History Last Taken Unknown] esomeprazole magnesium 40 mg granules delayed release for susp 40 mg G-tube BID Check with primary doctor 11/27/20 [History Last Taken Unknown] famotidine 20 mg tablet (Pepcid) 20 mg feeding tube LUNCH Check with primary doctor 11/27/20 [History Last Taken Unknown] guaifenesin 200 mg/5 mL oral liquid 200 mg feeding tube Q4H PRN Cough 11/27/20 [History Last Taken Unknown] lactose-reduced food with fiber 0.06 gram-1.2 kcal/mL oral liquid 1,000 ml G-tube DAILY Check with primary doctor 11/27/20 [History Last Taken Unknown] plecanatide 3 mg tablet 3 mg G-tube DAILY Check with primary doctor 11/27/20 [History Last Taken Unknown] simethicone 40 mg/0.6 mL oral drops,suspension 40 mg G-tube PRN PRN GAS 11/27/20 [History Last Taken Unknown] aluminum-mag hydroxide-simethicone 200 mg-200 mg-20 mg/5 mL oral susp 20 ml feeding tube 4X/DAY Check with primary doctor 01/11/21 [History Last Taken Unknown] nystatin 100,000 unit/mL oral suspension 1 ml buccal 4X/DAY Check with primary doctor 01/11/21 [History Last Taken Unknown] betamethasone dipropionate 0.05 % topical cream 1 applic topical BID Check with primary doctor 11/30/21 [History Last Taken Unknown] doxazosin 2 mg tablet 2 mg PO DAILY Check with primary doctor 11/30/21 [History Last Taken Unknown] piperacillin-tazobactam 3.375 gram/50 mL dextrose(iso-os) IV piggyback (Zosyn) 3.375 g (56.25 mL) IV Q8H 7 days #1,181.25 mL 12/03/21 [Rx Last Taken Unknown] Allergy/AdvReac Type Severity Reaction Status Date / Time cisapride monohydrate Allergy Rash Verified 11/30/21 11:10 [From Propulsid] house dust Allergy NEEDS Verified 11/30/21 11:10 FOLLOW-UP codeine AdvReac hallucinati Verified 11/30/21 11:10 ons metronidazole [From Flagyl] AdvReac Rash Verified 11/30/21 11:10 morphine AdvReac Hallucinati Verified 11/30/21 11:10 ons Family History Mother Hepatitis C Hypertension Father CAD (coronary artery disease) Atrial fibrillation Hypertension H/O heart artery stent Surgical History Colostomy in place Heel cord lengthening History of colostomy History of eye surgery History of gastrostomy tube placement History of open reduction and internal fixation (ORIF) procedure History of soft tissue release Status post insertion of intrathecal baclofen pump Social History household members: family housing: house current occupational status: disabled Smoking Status: Never smoker alcohol intake: never substance use type: does not use caffeine: No Physical Exam Const no apparent distress HEENT head/scalp atraumatic Eyes PERRL and EOMs intact bilaterally Neck supple Resp Auscultation: rhonchi and diminished lung sounds Cardio regular rate and regular rhythm GI soft to palpation, non-tender and non-distended Extremity General Extremity: Negative for edema Skin no rashes or lesions noted Lab / Micro Data Attestation: I reviewed the patient's lab results. Result Diagrams: 12/03/21 04:20 12/03/21 04:20 Labs: Laboratory Results - last 24 hr 12/03/21 04:20: WBC 5.5, RBC 3.73 L, Hgb 10.3 L, Hct 33.6 L, MCV 90.1, MCH 27.6, MCHC 30.7 L, RDW Std Deviation 46.2 H, RDW Coeff of Emilee 14.0, Plt Count 151, MPV 9.9, Immature Gran % (Auto) 0.400, Neut % (Auto) 47.5, Lymph % (Auto) 31.7, [place] % (Auto) 10.1 H, Eos % (Auto) 10.1 H, Baso % (Auto) 0.2, Absolute Neuts (auto) 2.6, Absolute Lymphs (auto) 1.73, Nucleated RBC % 0 12/03/21 04:20: Sodium 143, Potassium 3.6, Chloride 109 H, Carbon Dioxide 28.0, Anion Gap 6, BUN 12, Creatinine 0.34 L, Estim Creat Clear Calc 206.29, Est GFR (MDRD) Af Amer 364, Est GFR (MDRD) Non-Af 301, BUN/Creatinine Ratio 34.8 H, Glucose 124 H, Calcium 8.3 L, Total Bilirubin 0.20, AST 21, ALT 28, Alkaline Phosphatase 137 H, Total Protein 7.6, Albumin 2.7 L, Globulin 4.9 H, Albumin/Globulin Ratio 0.6 L Micro: Microbiology 11/30/21 11:53 Sputum, Tracheal Aspirate Gram Stain - Final 11/30/21 11:53 Sputum, Tracheal Aspirate Respiratory Culture - Final Pseudomonas aeroginosa
--- NOTE | 2021-12-03 14:18 | CHAPLAIN ---
Type of Pastoral Visit ___ Initial Visit _x__ Follow-up Visit ___ On-call Visit ___ General Patient Visit ___ Spiritual Assessment ___ Family Conference ___ Bereavement ___ Rapid Response ___ Code Blue ___ Other (describe below) Pastoral Care Referral From ___ Patient _x__ Family ___ Nurse ___ Physician ___ Refinery [employer] ___ Machine Tool Mechanic ___ Other (describe below) Sacrament/Intervention ___ Active listening ___ Anointing ___ Pentecostalism ___ Bereavement ___ Communion ___ Sandra exploration ___ ___ Life review ___ Prayer ___ Reconciliation ___ Sacrament of Sick _x__ Supportive presence ___ Wedding ___ Other (describe below) Pastoral Comments support offered to mother of patient; mother reports that patient is doing better and there is a plan underway to get him home; mother states that we just need prayers
[2021-12-03] MEDS: Famotidine 20 MG Tablet GT (14:48)
[2021-12-03] MEDS: Jevity 1.5 1,000 ML 50 ML GT ×2 (14:56→18:44)
[2021-12-03] MEDS: Simethicone 40MG/0.6ML Bottle 40 MG GT ×2 (18:20→21:13)
[2021-12-03] MEDS: LORazepam 2 MG/ML Syringe IV (18:20)
[2021-12-04] VITALS (17 sets, daily range): BP systolic 96–139; BP diastolic 63–95; PULSE 71–101; RESP 14–24; TEMP 36.2–37.1; O2SAT 93–97
[2021-12-04] MEDS: BACLOFEN 5 MG/ML 20 MG PO ×5 (00:45→23:44)
[2021-12-04] MEDS: Nystatin Powder 15gm Bottle 1 APPLIC TOPICAL ×3 (06:27→21:43)
[2021-12-04] MEDS: Metoclopramide 10 MG/10 ML UDC 5 MG GT ×3 (06:28→21:32)
[2021-12-04 06:39] LABS: Absolute Lymphocyte Count 2.15 X10^3/uL (0.83-4.51); Absolute Neutrophil Count 3.5 X10^3/uL (2.0-7.7); Basophil# 0.02 X10^3/uL; Basophil% 0.3 % (0-1); Eosinophil# 0.64 X10^3/uL; Eosinophils% 9.2 % (0-5); Hematocrit 31.7 % (40-54); Hemoglobin 10.4 g/dL (13.0-16.5); Lymphocyte # 2.15 X10^3/ul (0.83-4.51); Lymphocyte % 30.9 % (19-41); Mean Corp Hgb Conc 32.8 g/dL (32-36); Mean Corpuscular Hgb 29.1 pg (27.0-32.0); Mean Corpuscular Volume 88.5 fL (80-94); Mean Platelet Vol. 10.3 fl (6.2-12.0); Monocyte# 0.67 X10^3/uL; Monocyte% 9.6 % (0-10); NRBC Flagged by Analyzer 0 % (0-5); Neutrophil # 3.46 X10^3/uL (2.7-7.7); Neutrophil % 49.7 % (47-70); Platelet Count 164 K/mm3 (150-450); RBC Distribution Width SD 45.6 fl (35.1-43.9); Red Blood Count 3.58 M/mm3 (4.6-6.2)
[2021-12-04 07:08] LABS: ALB/GLOB Ratio 0.6 RATIO (0.9-2.4); AST(SGOT) 15 U/L (15-37); Alanine Aminotransfer ALT/SGPT 27 U/L (16-61); Albumin, Serum 2.7 g/dL (3.2-5.0); Alkaline Phosphatase 130 U/L (45-117); Anion Gap 7 (5-15); BUN 14 mg/dL (7-18); BUN/Creat Ratio 50.4 RATIO (10-20); Calcium,Total 8.6 mg/dL (8.5-10.1); Chloride 108 mmol/L (98-107); Creatinine, Serum 0.28 mg/dL (0.70-1.30); EST Glomerular Filtration Rate 386 mL/min (>60); Est Glom Filt Rate - Afr Amer 467 mL/min (>60); Globulin 4.9 g/dL (2.2-4.2); Glucose 91 mg/dL (74-106); Potassium 3.8 mmol/L (3.5-5.1); Protein, Total 7.6 g/dL (6.4-8.2); Sodium Level 141 mmol/L (136-145)
--- NOTE | 2021-12-04 08:36 | PN.CC_ITS ---
Assessment & Plan Assessment/Plan (1) Chronic respiratory failure: QUALIFIERS: Respiratory failure complication: hypoxia and hypercapnia Qualified Code(s): J96.11 - Chronic respiratory failure with hypoxia; J96.12 - Chronic respiratory failure with hypercapnia PLAN: Plan RECOMMENDATIONS: 1. Continue vent support with SIMV throughout night. Consider using trach mask during the day 2. Wean oxygen as tolerated for saturations greater than 90%. 3. Continue Zosyn as appropriate coverage for fluoroquinolone resistant Pseudomonas. 4. Appreciate infectious disease and case management for home IV antibiotic coordination. 5. Continue aggressive bronchopulmonary hygiene with CoughAssist and vest th erapy. 6. Continue nutritional support via G-tube. 7. Monitor fluid status closely. IMPRESSIONS: 1. Acute on chronic hypoxic respiratory failure secondary to Pseudomonas pneumonia Clinical suspicion for mucous plugging in the setting of pseudomonal pneumonia as precipitating etiology for acute presentation. Patient has had previous pseudomonal infections with resistance to ciprofloxacin and Levaquin. It appears to be a similar pseudomonal infection at this time. Recommend continuing ventilatory support with SIMV per home regimen throughout the day and night. Continue aggressive bronchopulmonary hygiene in the form of vest therapy and CoughAssist. Continue bronchodilator therapy as needed. Wean oxygen as tolerated tolerated for saturations greater than 90% with goal to return to baseline nasal cannula during the day. Infectious disease and case management consulted to coordinate home IV antibiotics at discharge. Mother is comfortable with this plan. Anticipate discharge tomorrow. 2. Cerebral palsy/spastic quadriplegia/seizure disorder/GERD/history of PE Complicates care, management, recovery and prognosis. Subjective Subjective Patient did okay overnight. Patient still having significant secretions noted from the tracheostomy, but mother believes these are improving. Patient's mother feels that his color is better today. Objective Data Objective Data Vital Signs: Vital Signs Temp Pulse Resp BP Pulse Ox O2 Del Method O2 Flow Rate 36.9 C 94 19 H 139/81 H 97 Trach Collar 4 12/04/21 08:17 12/04/21 08:17 12/04/21 08:17 12/04/21 08:17 12/04/21 08:17 12/04/21 08:17 12/04/21 05:00 Oxygen Flow Rate (L/min) 4 Oxygen Delivery Method Trach Collar Weight: 74.888 kg Body Mass Index (BMI) 32.2 Intake & Output: Intake and Output for Last 24 Hours 12/02/21 12/03/21 12/04/21 23:59 23:59 23:59 Intake Total 3007 / 3480.33 2585.00 / 2710.00 300 / 300 Output Total 450 / 450 1050 / 1300 250 / 250 Balance 2557 / 3030.33 1535.00 / 1410.00 50 / 50 Lab / Micro Data Attestation: I reviewed the patient's lab results. Result Diagrams: 12/04/21 05:40 12/04/21 05:40 Labs: Laboratory Results - last 24 hr 12/04/21 05:40: WBC 7.0, RBC 3.58 L, Hgb 10.4 L, Hct 31.7 L, MCV 88.5, MCH 29.1, MCHC 32.8 D, RDW Std Deviation 45.6 H, RDW Coeff of Emilee 14.0, Plt Count 164, MPV 10.3, Immature Gran % (Auto) 0.300, Neut % (Auto) 49.7, Lymph % (Auto) 30.9, [place] % (Auto) 9.6, Eos % (Auto) 9.2 H, Baso % (Auto) 0.3, Absolute Neuts (auto) 3.5, Absolute Lymphs (auto) 2.15, Nucleated RBC % 0 12/04/21 05:40: Sodium 141, Potassium 3.8, Chloride 108 H, Carbon Dioxide 26.0, Anion Gap 7, BUN 14, Creatinine 0.28 L, Estim Creat Clear Calc 250.50, Est GFR (MDRD) Af Amer 467, Est GFR (MDRD) Non-Af 386, BUN/Creatinine Ratio 50.4 H, Glucose 91, Calcium 8.6, Total Bilirubin 0.20, AST 15, ALT 27, Alkaline Phosphatase 130 H, Total Protein 7.6, Albumin 2.7 L, Globulin 4.9 H, Albumin/Globulin Ratio 0.6 L Micro: Microbiology 11/30/21 11:53 Sputum, Tracheal Aspirate Gram Stain - Final 11/30/21 11:53 Sputum, Tracheal Aspirate Respiratory Culture - Final Pseudomonas aeroginosa 12/01/21 08:47 Mucosa - Nasopharyngeal Respiratory Panel (PCR) - Final 11/30/21 11:50 Nasal Secretion SARS-CoV-2 & FLU Antigen (Rapid) - Final Physical Exam Const alert and no apparent distress Constitutional Narrative: Middle-aged, quadriplegic male, appears comfortable and alert. General Appearance: cooperative and patient mechanically ventilated HEENT normocephalic, head/scalp atraumatic and moist oral mucous membranes Mouth: oral and palatal mucosa normal Eyes PERRL, EOMs intact bilaterally and conjunctivae normal Neck no lymphadenopathy and supple Neck Narrative: Tracheostomy site intact. General: tracheostomy present Lymph Lymphatic: no lymphadenopathy noted Chest inspection of chest normal Resp Resp Narrative: Scattered expiratory wheeze with diminished lung sounds. Secretions decreasing. Cardio regular rate, regular rhythm, S1 normal heart sound, S2 normal heart sound, no murmurs, no rub, no gallops and no JVD GI normal to inspection, nondistended, normoactive bowel sounds, soft to palpation and non-tender GI Narrative: Stoma pink and moist. Inspection: GI tube present and ostomy present Extremity Extremity Narrative: Baseline contractures noted. General Extremity: clubbing and edema Skin no rashes or lesions noted Neuro Neuro Narrative: Baseline neurologic status with spastic quadriplegia. Psych Mood & Affect: flat affect Charges/Coding Visit Charges Inpatient E&M: 68007 Subs Hosp L2
--- NOTE | 2021-12-04 09:06 | PCM.PN.ID ---
Physical Exam Narrative More secretions, vitals better per mom, no fever Const no apparent distress Resp Auscultation: diminished lung sounds Cardio regular rate and regular rhythm GI soft to palpation, non-tender and non-distended Skin no rashes or lesions noted ID ID: Route of nutrition/ use of supplements: [] Nutritional Intake: [] IV Site: [] Augustin Catheter: [] Assessment & Plan Assessment/Plan (1) Cerebral palsy: (2) Chronic respiratory failure: QUALIFIERS: Respiratory failure complication: hypoxia and hypercapnia Qualified Code(s): J96.11 - Chronic respiratory failure with hypoxia; J96.12 - Chronic respiratory failure with hypercapnia (3) Pseudomonas pneumonia: PLAN: Port in place, ok for home with 7 more days iv zosyn with weekly labs. Will follow
[2021-12-04] MEDS: NYSTATIN 500,000 UNIT/5 ML UDC 100000 UNIT GT ×4 (09:12→21:32)
[2021-12-04] MEDS: Doxazosin 1 MG Tablet 2 MG GT (09:12)
[2021-12-04] MEDS: Ascorbic Acid 500 MG Tablet GT (09:12)
[2021-12-04] MEDS: Enoxaparin 40 MG/0.4 ML Syringe SC (09:14)
[2021-12-04] MEDS: Mag Hydrox/Al Hydrox/Simeth 30 ML UDC 20 ML GT ×4 (09:15→21:32)
--- NOTE | 2021-12-04 09:31 | PN.HOSP_ITS ---
Subjective Subjective DOS 12/04/21 CC: f/u pnuemonia Pt did better overnight after ativan and evening medication. Continues to have gas that has been vented. Tolerated TF at lower dose with better success. Has had secretions and mucous which are being cleared. Objective Data Objective Data Vital Signs: Vital Signs Temp Pulse Resp BP Pulse Ox O2 Del Method O2 Flow Rate 98.4 F 94 19 H 139/81 H 97 Mechanical Ventilator 4 12/04/21 08:17 12/04/21 08:17 12/04/21 08:38 12/04/21 08:17 12/04/21 08:38 12/04/21 08:54 12/04/21 08:38 Oxygen Flow Rate (L/min) 4 Oxygen Delivery Method Mechanical Ventilator Weight: 74.888 kg Body Mass Index (BMI) 32.2 Intake & Output: Intake and Output for Last 24 Hours 12/02/21 12/03/21 12/04/21 23:59 23:59 23:59 Intake Total 3007 / 3480.33 2585.00 / 2710.00 300 / 300 Output Total 450 / 450 1050 / 1300 250 / 250 Balance 2557 / 3030.33 1535.00 / 1410.00 50 / 50 Lab / Micro Data Result Diagrams: 12/04/21 05:40 12/04/21 05:40 Labs: Laboratory Results - last 24 hr 12/04/21 05:40: WBC 7.0, RBC 3.58 L, Hgb 10.4 L, Hct 31.7 L, MCV 88.5, MCH 29.1, MCHC 32.8 D, RDW Std Deviation 45.6 H, RDW Coeff of Emilee 14.0, Plt Count 164, MPV 10.3, Immature Gran % (Auto) 0.300, Neut % (Auto) 49.7, Lymph % (Auto) 30.9, [place] % (Auto) 9.6, Eos % (Auto) 9.2 H, Baso % (Auto) 0.3, Absolute Neuts (auto) 3.5, Absolute Lymphs (auto) 2.15, Nucleated RBC % 0 12/04/21 05:40: Sodium 141, Potassium 3.8, Chloride 108 H, Carbon Dioxide 26.0, Anion Gap 7, BUN 14, Creatinine 0.28 L, Estim Creat Clear Calc 250.50, Est GFR (MDRD) Af Amer 467, Est GFR (MDRD) Non-Af 386, BUN/Creatinine Ratio 50.4 H, Glucose 91, Calcium 8.6, Total Bilirubin 0.20, AST 15, ALT 27, Alkaline Phosphatase 130 H, Total Protein 7.6, Albumin 2.7 L, Globulin 4.9 H, Albumin/Globulin Ratio 0.6 L Micro: Microbiology 11/30/21 11:53 Sputum, Tracheal Aspirate Gram Stain - Final 11/30/21 11:53 Sputum, Tracheal Aspirate Respiratory Culture - Final Pseudomonas aeroginosa 12/01/21 08:47 Mucosa - Nasopharyngeal Respiratory Panel (PCR) - Final 11/30/21 11:50 Nasal Secretion SARS-CoV-2 & FLU Antigen (Rapid) - Final Physical Exam Const Constitutional Narrative: Laying in bed, appears anxious at times HEENT normocephalic Eyes Eyes Narrative: Open, not purposefully looking Neck Neck Narrative: Thick Resp Resp Narrative: Slightly coarse diffusely, some trasmitted upper airway sounds Cardio regular rate and regular rhythm Cardio Narrative: tachycardic but regular rhythm, improving GI normal to inspection, nondistended, normoactive bowel sounds, soft to palpation and non-tender GI Narrative: Slightly firm, does not appear to be in pain when palpating Extremity Extremity Narrative: moving all extremities Neuro Neuro Narrative: Not talking, does not follow commands at time of exam Psych Psych Narrative: anxious Assessment & Plan Assessment/Plan (1) Hypoxia: PLAN: Plan #Hypoxia in a patient with chronic hypoxic respiratory failure * Concerning for ventilator associated pneumonia as mother has noticed that he has had increased sputum production with sputum being yellowish. He could not be transitioned to his 4 L of nasal cannula essentially worse during the day and needed to be on his vent as he got hypoxic. * Sputum cultures ordered and showing gram neg rods- pseudomonas growing. 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 Simon evaluated and advised pt go back to [facility] for follow up No evidence of strangulation at this time #lactic acidosis minimally elevated during time of distress resolved #Cerebral palsy with spastic quadriplegia * On baclofen and Ativan as needed * supportive care #Seizure disorder: On phenobarbital and gabapentin. #GERD: On PPI #Nutrition: On tube feeding. IV Zofran as needed. DVT prophylaxis: Lovenox Charges/Coding Visit Charges Inpatient E&M: 51840 Subs Hosp L2
[2021-12-04] MEDS: GABAPENTIN 250 MG/5 ML SOLUTION 500 MG GT ×4 (10:25→21:38)
--- NOTE | 2021-12-04 10:29 | CASEMGMT ---
Per physician notes, plan is to discharge pt tomorrow 12/05/21. Call to Megan at [facility] and Dayo at [facility] to notify both of d/c 12/05/21, voice understanding. CM to follow. Sher GRIMALDO CM
[2021-12-04] MEDS: Phenobarbital 20 MG/5 ML UDC 60 MG GT ×2 (10:35→21:32)
[2021-12-04] MEDS: Ferrous Sulfate 300 MG/5 ML UDC 75 MG GT (10:55)
[2021-12-04] MEDS: PLECANATIDE 3 MG TABLET PO (10:56)
[2021-12-04] MEDS: Famotidine 20 MG Tablet GT (11:24)
--- NOTE | 2021-12-04 11:50 | WOUNDNOTE ---
changed ostomy appliance with mother per request. peristomal skin remains inact. stoma prolapsed and will retract some at times. mother appreciative of assistance. will continue to monitor.
[2021-12-04] MEDS: Jevity 1.5 1,000 ML 40 ML GT (14:44)
[2021-12-04] MEDS: Acetaminophen 650 MG/20 ML UDC GT (23:46)
[2021-12-05 03:00] VITALS: BP 111/68; PULSE 65; PULSE 69; RESP 13; TEMP 36.2; O2SAT 96
[2021-12-05] MEDS: Metoclopramide 10 MG/10 ML UDC 5 MG GT ×2 (05:01→14:37)
[2021-12-05] MEDS: BACLOFEN 5 MG/ML 20 MG PO ×3 (05:01→17:29)
[2021-12-05] MEDS: Nystatin Powder 15gm Bottle 1 APPLIC TOPICAL ×2 (05:02→14:35)
[2021-12-05 07:25] LABS: Absolute Lymphocyte Count 1.83 X10^3/uL (0.83-4.51); Absolute Neutrophil Count 3.8 X10^3/uL (2.0-7.7); Basophil# 0.02 X10^3/uL; Basophil% 0.3 % (0-1); Eosinophil# 0.65 X10^3/uL; Eosinophils% 9.3 % (0-5); Hematocrit 34.4 % (40-54); Hemoglobin 10.7 g/dL (13.0-16.5); Lymphocyte # 1.83 X10^3/ul (0.83-4.51); Lymphocyte % 26.3 % (19-41); Mean Corp Hgb Conc 31.1 g/dL (32-36); Mean Corpuscular Hgb 27.9 pg (27.0-32.0); Mean Corpuscular Volume 89.6 fL (80-94); Monocyte# 0.62 X10^3/uL; Monocyte% 8.9 % (0-10); NRBC Flagged by Analyzer 0 % (0-5); Neutrophil # 3.81 X10^3/uL (2.7-7.7); Neutrophil % 54.8 % (47-70); Platelet Count 181 K/mm3 (150-450); RBC Distribution Width CV 13.8 % (11.6-14.6); RBC Distribution Width SD 45.1 fl (35.1-43.9); Red Blood Count 3.84 M/mm3 (4.6-6.2)
[2021-12-05 07:54] LABS: ALB/GLOB Ratio 0.6 RATIO (0.9-2.4); AST(SGOT) 13 U/L (15-37); Alanine Aminotransfer ALT/SGPT 24 U/L (16-61); Albumin, Serum 2.8 g/dL (3.2-5.0); Alkaline Phosphatase 134 U/L (45-117); Anion Gap 6 (5-15); BUN 12 mg/dL (7-18); BUN/Creat Ratio 47.1 RATIO (10-20); Calcium,Total 8.7 mg/dL (8.5-10.1); Chloride 107 mmol/L (98-107); Creatinine, Serum 0.26 mg/dL (0.70-1.30); EST Glomerular Filtration Rate 426 mL/min (>60); Est Glom Filt Rate - Afr Amer 516 mL/min (>60); Estimated Creatinine Clearance 269.76 ml/min; Glucose 105 mg/dL (74-106); Potassium 3.8 mmol/L (3.5-5.1); Protein, Total 7.8 g/dL (6.4-8.2); Sodium Level 140 mmol/L (136-145)
[2021-12-05 08:00] VITALS: PULSE 84
[2021-12-05 09:00] VITALS: BP 136/94; PULSE 80; RESP 14; TEMP 37.1; O2SAT 96
[2021-12-05] MEDS: Ascorbic Acid 500 MG Tablet GT (09:56)
[2021-12-05] MEDS: Doxazosin 1 MG Tablet 2 MG GT (09:56)
[2021-12-05] MEDS: Enoxaparin 40 MG/0.4 ML Syringe SC (10:01)
[2021-12-05] MEDS: NYSTATIN 500,000 UNIT/5 ML UDC 100000 UNIT GT ×2 (10:13→14:34)
[2021-12-05] MEDS: Mag Hydrox/Al Hydrox/Simeth 30 ML UDC 20 ML GT ×3 (10:15→17:28)
[2021-12-05] MEDS: Ferrous Sulfate 300 MG/5 ML UDC 75 MG GT (10:16)
[2021-12-05] MEDS: GABAPENTIN 250 MG/5 ML SOLUTION 500 MG GT ×3 (10:17→17:30)
[2021-12-05] MEDS: Phenobarbital 20 MG/5 ML UDC 60 MG GT (10:19)
[2021-12-05 11:00] VITALS: BP 129/83; PULSE 83; RESP 12; TEMP 36.6; O2SAT 94
[2021-12-05] MEDS: Famotidine 20 MG Tablet GT (11:30)
[2021-12-05] MEDS: PLECANATIDE 3 MG TABLET PO (11:30)
--- NOTE | 2021-12-05 11:35 | PCM.DC ---
Discharge Instructions Activity Discharge Activity: Return to Normal Activity Dressing / Incision Call your doctor if you observe: Fever of 101 or Higher, Shortness of breath, Dizziness, Fainting spells, Swelling in the ankles, Chest pain and Increased palpitations (irregular heartbeat) Follow Up Care Test Results: Test results from this visit will be discussed in further detail at your follow-up appointment, if applicable. Discharge Plan Admission Admit Date/Time: 11/30/21 13:47 Attending Provider: Barry Young Primary Care Provider: Timmy Conn Consulting Providers: Jacek Monsalve ; Yovanny Moreira ; Armando Plaza ; John Tolentino ; Valarie Kee NP ; Cindy Alexandre ; Fiona Echavarria ; Luis Simon ; Roberto Hathaway ; Lucia Dillard Instructions Additional Instructions / Restrictions: 1. You will need to continue following with your roving carrier Discharge Orders/Prescriptions Prescriptions: New Zosyn in dextrose (iso-osm) 3.375 gram/50 mL piggyback 3.375 g IV Q8H 7 Days Qty: 1181.25 0RF Rx Instructions: stop date 12/10/21 dx: pseudomonas pneumonia weekly bmp and cbc. Fax to [phone] routine midline care Continued albuterol sulfate 2.5 mg /3 mL (0.083 %) solution for nebulization 2.5 mg inhalation Q4H PRN (Reason: Sob &/Or Wheezing) guaifenesin 200 mg/5 mL liquid 200 mg feeding tube Q4H PRN (Reason: Cough) esomeprazole magnesium [address] for susp in packet 40 mg G-tube BID famotidine [Pepcid] 20 mg tablet 20 mg feeding tube LUNCH Rx Instructions: per NG simethicone 40 mg/0.6 mL drops,suspension 40 mg G-tube PRN PRN (Reason: GAS) Label Comments: gas metoclopramide HCl 5 mg/5 mL solution 5 mg feeding tube TID Label Comments: stomach phenobarbital 20 MG/5 ML elixir 60 mg G-tube BID Label Comments: 20 mg/5 Lactobacillus acidophilus 1 EACH capsule 1 cap G-tube DAILY lorazepam 1 MG tablet 2 mg G-tube Q8 PRN (Reason: Agitation) Label Comments: TAKE ONE TABLET BY MOUTH THREE TIMES DAILY NEEDED ferrous sulfate 15 MG/ML drops 75 mg G-tube DAILY Cough Assist 1 dose .Route .MEDSUPPLY Rx Instructions: Inspiratory and Expiratory times of 20-40 seconds with a 1-2 second pause. oxygen concentrator 1 dose .Route .MEDSUPPLY Rx Instructions: As directed ondansetron HCl 4 MG tablet 5 ml feeding tube DAILY PRN (Reason: Nausea) baclofen 5 mg/5 mL solution 20 mg G-tube Q6H lactose-reduced food with fibr 0.06 gram-1.2 kcal/mL liquid 1,000 ml G-tube DAILY Rx Instructions: 50 ml/hr continuous ascorbic acid (vitamin C) 500 MG/5 ML syrup 500 mg G-tube DAILY Rx Instructions: take this medication with the iron supplement gabapentin 250 MG/5 ML solution 500 mg G-tube 4X/DAY plecanatide 3 mg tablet 3 mg GT DAILY nystatin 100,000 unit/mL Suspension 1 ml BUCCAL 4X/DAY alum-mag hydroxide-simeth 200-200-20 mg/5 mL Suspension 20 ml feeding tube 4X/DAY betamethasone dipropionate 0.05 % cream 1 applic topical BID Rx Instructions: Apply sparingly to affected area doxazosin 2 mg tablet 2 mg GT DAILY Referrals / Follow Up: Timmy Conn MD [Primary Care Provider] - Within 1 Week Disposition Disposition (needs filled in before D/C Order can be placed): Home, Self Care
--- NOTE | 2021-12-05 12:00 | NURSING ---
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
--- NOTE | 2021-12-05 12:02 | CASEMGMT ---
Patient does not have a Healthcare Power of Professor In Family Studies or Healthcare Living will on file. However, patient's parents are his Legal Guardians. Shanthi LYMAN
--- NOTE | 2021-12-05 12:03 | CASEMGMT ---
Addendum entered by Veronica Mace 12/05/21 12:54: D/C instructions faxed to [facility] and [facility]. Sher GRIMALDO CM Original Note: Pt to be sent home today per Dr. Young. Call to Megan at [facility] to notify and she states d/c meds will take 4-5 hours for delivery. Per chart, pt's dose was given at 0500 this am. Call to Eugene in pharmacy and he states pt can have next dose at 1202 today but states they normally use 4 hour infusion for med. Per Eugene, they can give med in [address] Young aware and states ok to give pt 30 min dose after 12n and then pt can discharge home to get last dose at home tonight. [facility] updated, voices understanding. Call to Dayo at [facility] to update on all as well as new rosenberg needle to be placed prior to d/c, voices understanding and states she spoke with mother and mother is comfortable giving dose on her own tonight and then [facility] till go out tomorrow morning. Negro GRIMALDO updated on all, voices understanding. Miladis, [facility] dental secretary, aware to set up transport for around 1500. Pt's parents updated on all, voice understanding and voice no further questions/concerns/needs. Parents state no preference for ambulance d/c company. Sher GRIMALDO CM
[2021-12-05 15:00] VITALS: BP 118/95; PULSE 86; RESP 17; TEMP 36.8; O2SAT 95
--- NOTE | 2021-12-05 15:21 | DS.PCM_ITS ---
Providers Date of Admission: 11/30/21 Primary Care Physician: Dr. Timmy Conn MD Consultations 11/30/21 15:05 Consult: Supervisor Costuming / Pulmonary Medicine Routine Consulting Provider: Pulmonary Medicine brian Araujo Reason for Consult: ventilator associated pneumonia EMERGENT Consult: No Notified: Yes Date Notified: 11/30/21 Time Notified: 13:54 Method of Notification: Text 12/02/21 08:16 Consult: General Surgery Routine Consulting Provider: Luis Simon Reason for Consult: Ostomy prolapse, pt had appt today, worse per fam, irritated w/ bloodlastPM EMERGENT Consult: No Notified: Yes Date Notified: 12/02/21 Time Notified: 09:47 Method of Notification: Text 12/03/21 07:46 Consult: Infectious Disease Routine Consulting Provider: Roberto Hathaway Reason for Consult: Home IV abx EMERGENT Consult: No MD Notified: Yes Date Notified: 12/03/21 Time Notified: 08:29 Method of Notification: Answering Service Reason For Visit: VENTILATOR ASSOCIATED PNEUMONIA Diagnosis Discharge Diagnosis (1) Hypoxia: Status: Acute Code(s): R09.02 - Hypoxemia Medications at Discharge Home Medications phenobarbital 20 mg/5 mL (4 mg/mL) oral elixir 60 mg G-tube BID pain 02/19/17 Lactobacillus acidophilus 1 cap G-tube DAILY gut health 02/04/18 metoclopramide HCl 5 mg/5 mL oral solution 5 mg feeding tube TID thrush 09/16/18 lorazepam 1 mg tablet 2 mg G-tube Q8 PRN Agitation 10/08/18 Cough Assist 1 dose .Route .MEDSUPPLY assist in clearing secretions 12/25/18 ferrous sulfate 15 mg iron (75 mg)/mL oral drops 75 mg G-tube DAILY supplement 12/25/18 oxygen concentrator 1 dose .Route .MEDSUPPLY second unit, 4 LPM cont all modalities 12/25/18 ondansetron HCl 4 mg tablet 5 ml feeding tube DAILY PRN Nausea 05/09/19 ascorbic acid (vitamin C) 500 mg/5 mL oral syrup 500 mg G-tube DAILY Check with primary doctor 08/04/19 gabapentin 250 mg/5 mL oral solution 500 mg G-tube 4X/DAY Check with primary doctor 09/26/19 albuterol sulfate 2.5 mg/3 mL (0.083 %) solution for nebulization 2.5 mg inhalation Q4H PRN Sob &/Or Wheezing 11/27/20 baclofen 5 mg/5 mL oral solution 20 mg G-tube Q6H Spasticity 11/27/20 esomeprazole magnesium 40 mg granules delayed release for susp 40 mg G-tube BID Check with primary doctor 11/27/20 famotidine 20 mg tablet (Pepcid) 20 mg feeding tube LUNCH Check with primary doctor 11/27/20 guaifenesin 200 mg/5 mL oral liquid 200 mg feeding tube Q4H PRN Cough 11/27/20 lactose-reduced food with fiber 0.06 gram-1.2 kcal/mL oral liquid 1,000 ml G- tube DAILY Check with primary doctor 11/27/20 plecanatide 3 mg tablet 3 mg G-tube DAILY Check with primary doctor 11/27/20 simethicone 40 mg/0.6 mL oral drops,suspension 40 mg G-tube PRN PRN GAS 11/27/20 aluminum-mag hydroxide-simethicone 200 mg-200 mg-20 mg/5 mL oral susp 20 ml feeding tube 4X/DAY Check with primary doctor 01/11/21 nystatin 100,000 unit/mL oral suspension 1 ml buccal 4X/DAY Check with primary doctor 01/11/21 betamethasone dipropionate 0.05 % topical cream 1 applic topical BID Check with primary doctor 11/30/21 doxazosin 2 mg tablet 2 mg PO DAILY Check with primary doctor 11/30/21 piperacillin-tazobactam 3.375 gram/50 mL dextrose(iso-os) IV piggyback (Zosyn) 3.375 g (56.25 mL) IV Q8H 7 days #1,181.25 mL 12/03/21 Hospital Course Operations None Summary of Care Provided Minutes Spent on Discharge: 40 Hospital Course: Per HPI: KRISS MICHAEL, is a 41 M with a PMH as outlined who presents via the ED with a complaint of shortness of breath. He is cared for by his parents at home. He is on ventilator at home. Parents noticed that he was hypoxic at home, with oxygen going down to the 80s (84-85%), with his lips turning blue.? According to his mother, he is usually taking off his ventilator in the mornings and placed on oxygen by nasal cannula, usually at 4 L.? He stays on his oxygen throughout the day and goes back on the ventilator at night.? This morning he was placed on the oxygen by nasal cannula but desaturated to the 70s and according to his mother he turned blue, so he was placed back on the ventilator. He didnt have any fever or chills, though his mother noted that he was bringing up more sputum than usual. Family said this was unusual for him, so they brought him in to the ED. Vitals in [facility] ED were blood pressure 138/81, pulse rate of 104 and respiratory rate of 21.? He was saturating at 95% on the ventilator.? CBC showed WBC of 6.1 and hemoglobin of 12 and was otherwise unremarkable.? Chemistry was essentially unremarkable and chest x-ray showed underexpanded lungs with the visualized tracheostomy tube and no visible focal infiltrate no significant change since prior study.? He has been admitted to be managed for hypoxia probably due to ventilator associated pneumonia. CTA requested o/a of history of PE and is pending. Hospital Course: 1. Acute on chronic hypoxic respiratory failure secondary to ventilator associ ated pneumonia with Pseudomonas?41-year-old male with a history of several palsy with spastic quadriplegia who is on a chronic ventilator at home secondary to a trach present to the hospital with acute hypoxic respiratory failure. He is on chronic ventilatory support at home at night and then oxygen via his trach during the day. He was found to have a ventilator/pneumonia due to Pseudomonas. Infectious disease was consulted and recommended course of Zosyn IV on discharge. He is doing much better today and in discussion with his mother, she felt that he would be appropriate to go home today. She expressed understanding of the risk and benefits of discharge. Plan will be to complete an outpatient course as dictated by infectious disease for Zosyn and to continue all of his pulmonary toileting at home. 2. Ostomy prolapse?evaluated by surgery recommends evaluation at the [facility] for follow-up 3. Seizure disorder, cerebral palsy with spastic quadriplegia, GERD are all chronic medical conditions which complicate his care. His home medications were continued where appropriate Physical Exam Narrative Const alert and no apparent distress HEENT normocephalic Eyes PERRL, EOMs intact bilaterally and conjunctivae normal Neck supple Neck Narrative: Trachea midline, Shiley [address] Resp normal respiratory effort, no retractions and no use of accessory muscles Auscultation: rhonchi; Negative for crackles, rales or wheezes Cardio regular rate, regular rhythm, S1 normal heart sound, S2 normal heart sound, no murmurs and no clicks GI soft to palpation, non-tender and non-distended; Negative for hepatosplenomegaly GI Narrative: PEG in place, diverting ostomy noted Extremity no clubbing, cyanosis or edema Extremity Narrative: Significant spasticity in all 4 extremities with contractures Skin no wounds and no jaundice Neuro Neuro Narrative: 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 Sensorium / Orientation: awake and alert Weight / BMI Weight Weight: 165 lb 1.596 oz Body Mass Index (BMI) 32.2 ABG / Lab / Microbiology Data Result Diagrams: 12/05/21 06:49 12/05/21 06:49 Laboratory: Laboratory Results - last 24 hr 12/05/21 06:49: WBC 7.0, RBC 3.84 L, Hgb 10.7 L, Hct 34.4 L, MCV 89.6, MCH 27.9, MCHC 31.1 L D, RDW Std Deviation 45.1 H, RDW Coeff of Emilee 13.8, Plt Count 181, MPV 10.0, Immature Gran % (Auto) 0.400, Neut % (Auto) 54.8, Lymph % (Auto) 26.3, [place] % (Auto) 8.9, Eos % (Auto) 9.3 H, Baso % (Auto) 0.3, Absolute Neuts (auto) 3.8, Absolute Lymphs (auto) 1.83, Nucleated RBC % 0 12/05/21 06:49: Sodium 140, Potassium 3.8, Chloride 107, Carbon Dioxide 27.0, Anion Gap 6, BUN 12, Creatinine 0.26 L, Estim Creat Clear Calc 269.76, Est GFR (MDRD) Af Amer 516, Est GFR (MDRD) Non-Af 426, BUN/Creatinine Ratio 47.1 H, Glucose 105, Calcium 8.7, Total Bilirubin 0.20, AST 13 L, ALT 24, Alkaline Phosphatase 134 H, Total Protein 7.8, Albumin 2.8 L, Globulin 5.0 H, Albumi n/Globulin Ratio 0.6 L Microbiology: Microbiology 11/30/21 11:53 Sputum, Tracheal Aspirate Gram Stain - Final 11/30/21 11:53 Sputum, Tracheal Aspirate Respiratory Culture - Final Pseudomonas aeroginosa 12/01/21 08:47 Mucosa - Nasopharyngeal Respiratory Panel (PCR) - Final 11/30/21 11:50 Nasal Secretion SARS-CoV-2 & FLU Antigen (Rapid) - Final D/C Instructions Call your doctor if you observe: Fever of 101 or Higher, Shortness of breath, Dizziness, Fainting spells, Swelling in the ankles, Chest pain and Increased palpitations (irregular heartbeat) Meaningful Use Info Meaningful Use Diagnoses (Choose all that apply): None applicable Discharge Plan Admission Admit Date/Time: 11/30/21 13:47 Attending Provider: Barry Young Primary Care Provider: Timmy Conn Consulting Providers: Jacek Monsalve ; Yovanny Moreira ; Armando Plaza ; John Tolentino ; Valarie Kee NP ; Cindy Alexandre ; Fiona Echavarria ; Luis Simon ; Roberto Hathaway ; Lucia Dillard Instructions Additional Instructions / Restrictions: 1. You will need to continue following with your die setter Discharge Orders/Prescriptions Prescriptions: New Zosyn in dextrose (iso-osm) 3.375 gram/50 mL piggyback 3.375 g IV Q8H 7 Days Qty: 1181.25 0RF Rx Instructions: stop date 12/10/21 dx: pseudomonas pneumonia weekly bmp and cbc. Fax to [phone] routine midline care Continued albuterol sulfate 2.5 mg /3 mL (0.083 %) solution for nebulization 2.5 mg inhalation Q4H PRN (Reason: Sob &/Or Wheezing) guaifenesin 200 mg/5 mL liquid 200 mg feeding tube Q4H PRN (Reason: Cough) esomeprazole magnesium [address] for susp in packet 40 mg G-tube BID famotidine [Pepcid] 20 mg tablet 20 mg feeding tube LUNCH Rx Instructions: per NG simethicone 40 mg/0.6 mL drops,suspension 40 mg G-tube PRN PRN (Reason: GAS) Label Comments: gas metoclopramide HCl 5 mg/5 mL solution 5 mg feeding tube TID Label Comments: stomach phenobarbital 20 MG/5 ML elixir 60 mg G-tube BID Label Comments: 20 mg/5 Lactobacillus acidophilus 1 EACH capsule 1 cap G-tube DAILY lorazepam 1 MG tablet 2 mg G-tube Q8 PRN (Reason: Agitation) Label Comments: TAKE ONE TABLET BY MOUTH THREE TIMES DAILY NEEDED ferrous sulfate 15 MG/ML drops 75 mg G-tube DAILY Cough Assist 1 dose .Route .MEDSUPPLY Rx Instructions: Inspiratory and Expiratory times of 20-40 seconds with a 1-2 second pause. oxygen concentrator 1 dose .Route .MEDSUPPLY Rx Instructions: As directed ondansetron HCl 4 MG tablet 5 ml feeding tube DAILY PRN (Reason: Nausea) baclofen 5 mg/5 mL solution 20 mg G-tube Q6H lactose-reduced food with fibr 0.06 gram-1.2 kcal/mL liquid 1,000 ml G-tube DAILY Rx Instructions: 50 ml/hr continuous ascorbic acid (vitamin C) 500 MG/5 ML syrup 500 mg G-tube DAILY Rx Instructions: take this medication with the iron supplement gabapentin 250 MG/5 ML solution 500 mg G-tube 4X/DAY plecanatide 3 mg tablet 3 mg GT DAILY nystatin 100,000 unit/mL Suspension 1 ml BUCCAL 4X/DAY alum-mag hydroxide-simeth 200-200-20 mg/5 mL Suspension 20 ml feeding tube 4X/DAY betamethasone dipropionate 0.05 % cream 1 applic topical BID Rx Instructions: Apply sparingly to affected area doxazosin 2 mg tablet 2 mg GT DAILY Referrals / Follow Up: Timmy Conn MD [Primary Care Provider] - Within 1 Week Disposition Disposition (needs filled in before D/C Order can be placed): Home, Self Care Charges/Coding Visit Charges Inpatient E&M: 13410 Disch Hosp
--- NOTE | 2021-12-05 16:16 | NURSING ---
P/U time scheduled for 153 it is now 1615 and still no transport so I called [facility] to get an ETA for p/u they stated transport was 60-90min out.
--- NOTE | 2021-12-05 17:51 | NURSING ---
ETA for p/u was scheduled for [id number] I call [facility] at 1750 to get an ETA and they stated transport is at least 30min out.
--- NOTE | 2021-12-05 18:32 | NURSING ---
[facility] just arrived to transport patient home. Nurse to room for report.
== END 2021-12-05 18:37 | disposition home or self-care (01) | DRG 207 ==
LOC: ED 13:36 → PCU 13:49
PROVIDERS: Internal Medicine; Nurse Practitioner; Admitting Provider Student in an Organized Health Care Education/Training Program; Emergency Provider Emergency Medicine; PCP Family Medicine; Visit Provider Family Medicine
DX: J95.851 Ventilator associated pneumonia (principal); J69.0 Pneumonitis due to inhalation of food and vomit; J96.21 Acute and chronic respiratory failure with hypoxia; J15.1 Pneumonia due to Pseudomonas; G80.0 Spastic quadriplegic cerebral palsy; J96.12 Chronic respiratory failure with hypercapnia; K94.09 Other complications of colostomy; G40.909 Epilepsy, unspecified, not intractable, without status epilepticus; K21.9 Gastro-esophageal reflux disease without esophagitis; D50.9 Iron deficiency anemia, unspecified; R23.0 Cyanosis; Z20.822 Contact with and (suspected) exposure to COVID-19; E66.9 Obesity, unspecified; Z68.32 Body mass index [BMI] 32.0-32.9, adult; Z79.899 Other long term (current) drug therapy; Z86.711 Personal history of pulmonary embolism
CPT/HCPCS: 36415; 36591; 36600; 71045; 71275; 74018; 80048; 80053; 82803; 83605; 83735; 85025; 87070; 87077; 87186; 87205; 87428; 87633; 93005; 94667; 94668; 94762; 97802; 97803; 99285; J7030; J7040; Q9967; A4216

== ENCOUNTER 2021-12-08 09:30 | Outpatient (RCR) | payer MEDICARE, BC, MEDICAID, SELFPAY ==
[2021-12-08 09:38] LABS: Absolute Lymphocyte Count 2.18 X10^3/uL (0.83-4.51); Absolute Neutrophil Count 3.1 X10^3/uL (2.0-7.7); Basophil# 0.02 X10^3/uL; Basophil% 0.3 % (0-1); Eosinophil# 0.57 X10^3/uL; Eosinophils% 8.9 % (0-5); Hematocrit 31.7 % (40-54); Lymphocyte # 2.18 X10^3/ul (0.83-4.51); Lymphocyte % 33.9 % (19-41); Mean Corp Hgb Conc 31.5 g/dL (32-36); Mean Corpuscular Hgb 28.2 pg (27.0-32.0); Mean Corpuscular Volume 89.5 fL (80-94); Mean Platelet Vol. 9.9 fl (6.2-12.0); Monocyte# 0.51 X10^3/uL; Monocyte% 7.9 % (0-10); NRBC Flagged by Analyzer 0 % (0-5); Neutrophil # 3.13 X10^3/uL (2.7-7.7); Neutrophil % 48.5 % (47-70); Platelet Count 239 K/mm3 (150-450); RBC Distribution Width CV 13.6 % (11.6-14.6); RBC Distribution Width SD 44.7 fl (35.1-43.9); Red Blood Count 3.54 M/mm3 (4.6-6.2); White Blood Count 6.4 K/mm3 (4.4-11.0)
[2021-12-08 09:52] LABS: Anion Gap 9 (5-15); BUN 14 mg/dL (7-18); BUN/Creat Ratio 48.8 RATIO (10-20); Calcium,Total 8.1 mg/dL (8.5-10.1); Chloride 105 mmol/L (98-107); Creatinine, Serum 0.29 mg/dL (0.70-1.30); EST Glomerular Filtration Rate 372 mL/min (>60); Est Glom Filt Rate - Afr Amer 450 mL/min (>60); Glucose 88 mg/dL (74-106); Potassium 4.2 mmol/L (3.5-5.1); Sodium Level 143 mmol/L (136-145)
== END 2021-12-22 23:59 ==
LOC: LABSPEC 09:30
PROVIDERS: PCP Family Medicine; Referring Provider Internal Medicine Cardiovascular Disease; Visit Provider Internal Medicine Cardiovascular Disease
DX: D50.9 Iron deficiency anemia, unspecified (principal); D63.8 Anemia in other chronic diseases classified elsewhere; K92.2 Gastrointestinal hemorrhage, unspecified; J96.11 Chronic respiratory failure with hypoxia; J96.12 Chronic respiratory failure with hypercapnia; E87.1 Hypo-osmolality and hyponatremia; E87.6 Hypokalemia
CPT/HCPCS: 80048; 85025

== ENCOUNTER 2022-01-05 08:56 | Outpatient (RCR) | payer MEDICARE, BC, MEDICAID, SELFPAY ==
[2022-01-05 09:09] LABS: Absolute Lymphocyte Count 2.32 X10^3/uL (0.83-4.51); Absolute Neutrophil Count 2.9 X10^3/uL (2.0-7.7); Basophil# 0.03 X10^3/uL; Basophil% 0.5 % (0-1); Hematocrit 35.2 % (40-54); Hemoglobin 11.6 g/dL (13.0-16.5); Lymphocyte # 2.32 X10^3/ul (0.83-4.51); Mean Corpuscular Hgb 28.6 pg (27.0-32.0); Mean Corpuscular Volume 86.9 fL (80-94); Monocyte# 0.53 X10^3/uL; Monocyte% 8.5 % (0-10); NRBC Flagged by Analyzer 0 % (0-5); Neutrophil # 2.88 X10^3/uL (2.7-7.7); Neutrophil % 45.8 % (47-70); Platelet Count 165 K/mm3 (150-450); RBC Distribution Width CV 13.8 % (11.6-14.6); Red Blood Count 4.05 M/mm3 (4.6-6.2); White Blood Count 6.3 K/mm3 (4.4-11.0)
[2022-01-05 09:20] LABS: ALB/GLOB Ratio 0.7 RATIO (0.9-2.4); AST(SGOT) 13 U/L (15-37); Alanine Aminotransfer ALT/SGPT 20 U/L (16-61); Albumin, Serum 3.1 g/dL (3.2-5.0); Alkaline Phosphatase 126 U/L (45-117); Anion Gap 6 (5-15); BUN 14 mg/dL (7-18); BUN/Creat Ratio 51.7 RATIO (10-20); Calcium,Total 8.6 mg/dL (8.5-10.1); Chloride 102 mmol/L (98-107); Creatinine, Serum 0.27 mg/dL (0.70-1.30); EST Glomerular Filtration Rate 397 mL/min (>60); Est Glom Filt Rate - Afr Amer 480 mL/min (>60); Globulin 4.4 g/dL (2.2-4.2); Glucose 87 mg/dL (74-106); Potassium 4.2 mmol/L (3.5-5.1); Protein, Total 7.5 g/dL (6.4-8.2); Sodium Level 139 mmol/L (136-145)
== END 2022-01-21 23:59 ==
LOC: LABSPEC 08:56
PROVIDERS: PCP Family Medicine; Referring Provider Internal Medicine Cardiovascular Disease; Visit Provider Internal Medicine Cardiovascular Disease
DX: D50.9 Iron deficiency anemia, unspecified (principal); D63.8 Anemia in other chronic diseases classified elsewhere; K92.2 Gastrointestinal hemorrhage, unspecified; J96.11 Chronic respiratory failure with hypoxia; J96.12 Chronic respiratory failure with hypercapnia; E87.1 Hypo-osmolality and hyponatremia; E87.6 Hypokalemia
CPT/HCPCS: 80053; 85025

== ENCOUNTER 2022-02-06 10:22 | Outpatient (RCR) | payer MEDICARE, BC, MEDICAID, SELFPAY ==
[2022-02-06 10:29] LABS: Absolute Lymphocyte Count 1.84 X10^3/uL (0.83-4.51); Absolute Neutrophil Count 5.1 X10^3/uL (2.0-7.7); Basophil# 0.01 X10^3/uL; Basophil% 0.1 % (0-1); Eosinophil# 0.31 X10^3/uL; Hematocrit 34.4 % (40-54); Hemoglobin 11.5 g/dL (13.0-16.5); Lymphocyte # 1.84 X10^3/ul (0.83-4.51); Lymphocyte % 23.5 % (19-41); Mean Corp Hgb Conc 33.4 g/dL (32-36); Mean Corpuscular Hgb 28.8 pg (27.0-32.0); Mean Platelet Vol. 9.8 fl (6.2-12.0); Monocyte# 0.54 X10^3/uL; Monocyte% 6.9 % (0-10); NRBC Flagged by Analyzer 0 % (0-5); Neutrophil # 5.12 X10^3/uL (2.7-7.7); Neutrophil % 65.4 % (47-70); Platelet Count 171 K/mm3 (150-450); RBC Distribution Width CV 13.8 % (11.6-14.6); RBC Distribution Width SD 43.1 fl (35.1-43.9); White Blood Count 7.8 K/mm3 (4.4-11.0)
[2022-02-06 10:50] LABS: Anion Gap 6 (5-15); BUN 15 mg/dL (7-18); BUN/Creat Ratio 55.6 RATIO (10-20); Calcium,Total 8.3 mg/dL (8.5-10.1); Chloride 103 mmol/L (98-107); Creatinine, Serum 0.27 mg/dL (0.70-1.30); EST Glomerular Filtration Rate 399 mL/min (>60); Est Glom Filt Rate - Afr Amer 482 mL/min (>60); Glucose 113 mg/dL (74-106); Potassium 3.8 mmol/L (3.5-5.1); Sodium Level 138 mmol/L (136-145)
== END 2022-02-21 23:59 ==
LOC: LABSPEC 10:22
PROVIDERS: PCP Family Medicine; Visit Provider Internal Medicine Cardiovascular Disease
DX: D63.8 Anemia in other chronic diseases classified elsewhere (principal); D50.9 Iron deficiency anemia, unspecified; K92.2 Gastrointestinal hemorrhage, unspecified; J96.11 Chronic respiratory failure with hypoxia; J96.12 Chronic respiratory failure with hypercapnia
CPT/HCPCS: 80048; 85025

== ENCOUNTER 2022-02-24 16:07 | Emergency (ER) | payer MEDICARE, BC, MEDICAID, SELFPAY ==
[2022-02-24 16:09] VITALS: PULSE 69; RESP 24; TEMP 36.4; O2SAT 95; BMI 31.6
[2022-02-24 16:16] VITALS: BP 137/100; PULSE 101; RESP 20; TEMP 36.4; O2SAT 95
--- NOTE | 2022-02-24 16:44 | CPS ---
Talked to family, stated pt is SOB. Pt is wheezing. Placed pt on home vent at this time to help with 4L bleed
[2022-02-24 17:16] VITALS: BP 134/98; PULSE 89; RESP 16; TEMP 36.4; O2SAT 95
[2022-02-24 18:10] LABS: Absolute Lymphocyte Count 2.18 X10^3/uL (0.83-4.51); Absolute Neutrophil Count 4.6 X10^3/uL (2.0-7.7); Basophil# 0.02 X10^3/uL; Basophil% 0.3 % (0-1); Eosinophil# 0.35 X10^3/uL; Eosinophils% 4.4 % (0-5); Hematocrit 37.5 % (40-54); Hemoglobin 12.1 g/dL (13.0-16.5); Lymphocyte # 2.18 X10^3/ul (0.83-4.51); Lymphocyte % 27.6 % (19-41); Mean Corp Hgb Conc 32.3 g/dL (32-36); Mean Corpuscular Hgb 27.4 pg (27.0-32.0); Mean Platelet Vol. 9.7 fl (6.2-12.0); Monocyte# 0.69 X10^3/uL; Monocyte% 8.7 % (0-10); NRBC Flagged by Analyzer 0 % (0-5); Neutrophil # 4.63 X10^3/uL (2.7-7.7); Neutrophil % 58.7 % (47-70); Platelet Count 210 K/mm3 (150-450); RBC Distribution Width CV 13.4 % (11.6-14.6); RBC Distribution Width SD 41.9 fl (35.1-43.9); Red Blood Count 4.41 M/mm3 (4.6-6.2); White Blood Count 7.9 K/mm3 (4.4-11.0)
--- NOTE | 2022-02-24 18:16 | EX.ED.DYSGE1 ---
HPI History of Present Illness Chief Complaint: Shortness of Breath Detail of Chief Complaint: Shortness of breath and rapid heartbeat Informant: parent (Mother and father) Onset/Context/Timing Onset: Today Context: Sudden Onset Timing: Intermittent Quality: Heart rate greater than 100, temperature of 99.9 ?F and difficulty breathin Location: Presents from home Current Severity: Gone Maximum Severity: Moderate Worsened by: Unknown Relieved by: Nothing Associated Symptoms Associated Symptoms: Unable to determine Narrative Narrative: Patient is a 42-year-old male who is vent dependent and dependent on his parents for care. He has cerebral palsy. He also has a colostomy. His colon has prolapsed through the ostomy site. He is still making stool. There is been no vomiting. He does not have an indwelling [place]. History is limited to what the parents can tell me since he is nonverbal and vent dependent. Prior similar symptoms: Yes Recent Illness/Hospitalization: No PFSH [facility] Medical History Acute dyspnea Anemia in chronic illness Cerebral palsy Colostomy prolapse Debility Edema History of seizure disorder Iron deficiency anemia Nonrheumatic mitral valve prolapse Obesity Pseudomonas pneumonia Pulmonary embolism on left (06/14/19) Redundant colon Thrombocytopenia Tracheostomy in place Upper GI bleeding (04/2020) Home Medications phenobarbital 20 mg/5 mL (4 mg/mL) oral elixir 60 mg G-tube BID pain 02/19/17 [History Last Taken 04/24/20 21:00] Lactobacillus acidophilus 1 cap G-tube DAILY gut health 02/04/18 [History Last Taken 04/24/20 09:00] metoclopramide HCl 5 mg/5 mL oral solution 5 mg feeding tube TID thrush 09/16/18 [History Last Taken 04/24/20 21:00] lorazepam 1 mg tablet 2 mg G-tube Q8 PRN Agitation 10/08/18 [History Last Taken 04/24/20 22:00] Cough Assist 1 dose .Route .MEDSUPPLY assist in clearing secretions 12/25/18 [History Last Taken Unknown] ferrous sulfate 15 mg iron (75 mg)/mL oral drops 75 mg G-tube DAILY supplement 12/25/18 [History Last Taken 04/24/20 16:00] oxygen concentrator 1 dose .Route .MEDSUPPLY second unit, 4 LPM cont all modalities 12/25/18 [History Last Taken Unknown] ondansetron HCl 4 mg tablet 5 ml feeding tube DAILY PRN Nausea 05/09/19 [History Last Taken Unknown] ascorbic acid (vitamin C) 500 mg/5 mL oral syrup 500 mg G-tube DAILY Check with primary doctor 08/04/19 [History Last Taken Unknown] gabapentin 250 mg/5 mL oral solution 500 mg G-tube 4X/DAY Check with primary doctor 09/26/19 [History Last Taken 04/25/20 06:00] albuterol sulfate 2.5 mg/3 mL (0.083 %) solution for nebulization 2.5 mg inhalation Q4H PRN Sob &/Or Wheezing 11/27/20 [History Last Taken Unknown] baclofen 5 mg/5 mL oral solution 20 mg G-tube Q6H Spasticity 11/27/20 [History Last Taken Unknown] esomeprazole magnesium 40 mg granules delayed release for susp 40 mg G-tube BID Check with primary doctor 11/27/20 [History Last Taken Unknown] famotidine 20 mg tablet (Pepcid) 20 mg feeding tube LUNCH Check with primary doctor 11/27/20 [History Last Taken Unknown] lactose-reduced food with fiber 0.06 gram-1.2 kcal/mL oral liquid 1,000 ml G-tube DAILY Check with primary doctor 11/27/20 [History Last Taken Unknown] plecanatide 3 mg tablet 3 mg G-tube DAILY Check with primary doctor 11/27/20 [History Last Taken Unknown] simethicone 40 mg/0.6 mL oral drops,suspension 40 mg G-tube PRN PRN GAS 11/27/20 [History Last Taken Unknown] aluminum-mag hydroxide-simethicone 200 mg-200 mg-20 mg/5 mL oral susp 20 ml feeding tube 4X/DAY Check with primary doctor 01/11/21 [History Last Taken Unknown] doxazosin 2 mg tablet 2 mg PO DAILY Check with primary doctor 11/30/21 [History Last Taken Unknown] guaifenesin 200 mg/5 mL oral liquid 400 mg (10 mL) feeding tube Q6H PRN Cough #473 mL 12/19/21 [Rx Last Taken Unknown] betamethasone dipropionate 0.05 % topical cream 1 applic topical BID PRN Check with primary doctor 01/06/22 [History Last Taken Unknown] ciprofloxacin HCl 0.3 % eye drops 1 drp LEFT EYE Q4H 7 days #5 mL 02/24/22 [Rx Last Taken Unknown] Allergy/AdvReac Type Severity Reaction Status Date / Time cisapride monohydrate Allergy Rash Verified 02/24/22 16:08 [From Propulsid] house dust Allergy NEEDS Verified 02/24/22 16:08 FOLLOW-UP codeine AdvReac hallucinati Verified 02/24/22 16:08 ons metronidazole [From Flagyl] AdvReac Rash Verified 02/24/22 16:08 morphine AdvReac Hallucinati Verified 02/24/22 16:08 ons Family History Mother Hepatitis C Hypertension Father CAD (coronary artery disease) Atrial fibrillation Hypertension H/O heart artery stent Surgical History Colostomy in place Heel cord lengthening History of colostomy History of eye surgery History of gastrostomy tube placement History of open reduction and internal fixation (ORIF) procedure History of soft tissue release Status post insertion of intrathecal baclofen pump Social History household members: family housing: house current occupational status: disabled Smoking Status: Never smoker alcohol intake: never substance use type: does not use caffeine: No ROS ROS ED Review of Systems ROS Unobtainable: due to mental status and other Details: Nonverbal vent dependent patient EXAM Physical Exam Const Vital Signs: 02/24/22 16:09 02/24/22 16:16 02/24/22 16:16 Temperature 97.6 F L 97.6 F L Temperature Source Temporal Temporal Pulse Rate 69 101 H Respiratory Rate 24 H 20 H Respiratory Effort Respiratory Depth Respiratory Pattern Blood Pressure 137/100 H 137/100 H Blood Pressure Mean 112 112 Pulse Ox 95 95 Oxygen Delivery Method Nasal Cannula Nasal Cannula Oxygen Flow Rate (L/min) 4 4 02/24/22 16:16 02/24/22 17:16 Temperature 97.6 F L Temperature Source Temporal Pulse Rate 89 Respiratory Rate 16 Respiratory Effort Short of Breath Respiratory Depth Normal Respiratory Pattern Tachypnea Blood Pressure 134/98 H Blood Pressure Mean 110 Pulse Ox 95 Oxygen Delivery Method Nasal Cannula Nasal Cannula Oxygen Flow Rate (L/min) 4 4 Positive well nourished, well developed and obese General Appearance ED: well developed and NAD; Negative for cyanotic or diaphoretic Nutritional Appearance: obese HEENT Reports moist mucous membranes HEENT Narrative: Head is atraumatic normocephalic. Ears normal. Nares patent. Unable to see posterior pharynx because of tongue protrusion and swelling. This is normal for him. Eyes PERRL and EOMs intact bilaterally General Eye ED: Yes pale conjunctiva; Negative for scleral icterus Neck no lymphadenopathy, supple and no JVD Neck Narrative: Patient has a trach in place. He is present being ventilated. Chest Wall inspection of chest normal and palpation of chest normal Resp normal respiratory effort and clear to auscultation bilaterally Cardio regular rate, regular rhythm, S1 normal heart sound, S2 normal heart sound and no murmurs GI GI Narrative: Feeding tube noted. Colostomy noted with prolapse of colon. Colon is pink and viable. Inspection: abdominal distention Auscultation: hypoactive bowel sounds Palpation: soft Back/Spine Back/Spine Narrative: Unable to determine if he has CVA tenderness. Extremity General Extremety ED: Yes edema; Negative for tenderness General Extremity: edema Neuro Neuro Narrative: Patient is nonverbal. Psych Psych Narrative: Unable to determine Skin no rashes or lesions noted, no wounds and skin turgor normal General Skin Exam: Negative for jaundice MDM MDM MDM Narrative Medical decision making narrative: When patient has had prior presentations he has had an infection. Because of reported trouble breathing slight cough tachycardia with temperature 99.9 chest x-ray and for blood work was obtained to evaluate for infectious cause. This may also represent anxiety based on review of prior records. Mother noted that he has colored drainage from the left eye. He does have evidence of conjunctivitis. Will place on ciprofloxacin ophthalmic drops. Lab Data Attestation: I reviewed the patient's lab results. Lab results narrative: White count differential unremarkable. HH is a remarkable. Comprehensive metabolic panel is unremarkable. Patient BUN to creatinine ratio is elevated 34-1 however GFR is 247. Labs: Laboratory Results - last 24 hr 02/24/22 02/24/22 18:02 18:02 WBC 7.9 RBC 4.41 L Hgb 12.1 L Hct 37.5 L MCV 85.0 MCH 27.4 MCHC 32.3 RDW Std Deviation 41.9 RDW Coeff of Emilee 13.4 Plt Count 210 MPV 9.7 Immature Gran % (Auto) 0.300 Neut % (Auto) 58.7 Lymph % (Auto) 27.6 [place] % (Auto) 8.7 Eos % (Auto) 4.4 Baso % (Auto) 0.3 Absolute Neuts (auto) 4.6 Absolute Lymphs (auto) 2.18 Nucleated RBC % 0 Sodium 135 L Potassium 4.2 Chloride 102 Carbon Dioxide 26.0 Anion Gap 7 BUN 14 Creatinine 0.41 L Estim Creat Clear Calc 169.38 Est GFR (MDRD) Af Amer 299 Est GFR (MDRD) Non-Af 247 BUN/Creatinine Ratio 34.3 H Glucose 110 H Calcium 9.0 Total Bilirubin 0.20 AST 11 L ALT 23 Alkaline Phosphatase 162 H Total Protein 8.8 H Albumin 3.4 Globulin 5.4 H Albumin/Globulin Ratio 0.6 L Radiography Chest X-Ray - ED: 1 View and Read by ED Physician (Independently reviewed and interpreted by me at 1839 as negative and unchanged from chest x-ray obtained on November 30, 2021. There is chronic changes. Tracheostomy is noted to be in place. Cardiac silhouette and size are unremarkable. Limited inspiratory volume. [place] structures are unremarkabl) Discharge Plan Triage Chief Complaint: Shortness of Breath ED Provider: Dario De La Torre Dx/Rx/DC Orders Clinical Impression: Dyspnea, Nonrheumatic mitral valve prolapse, Cerebral palsy, Tachycardia, Acute purulent conjunctivitis of left eye Instructions: ED Conjunctivitis, Nonspecific, ED Dyspnea Prescriptions: New ciprofloxacin HCl 0.3 % drops 1 drp LEFT EYE Q4H 7 Days Qty: 5 0RF Rx Instructions: administer while awake No Action albuterol sulfate 2.5 mg /3 mL (0.083 %) solution for nebulization 2.5 mg inhalation Q4H PRN (Reason: Sob &/Or Wheezing) esomeprazole magnesium [address] for susp in packet 40 mg G-tube BID famotidine [Pepcid] 20 mg tablet 20 mg feeding tube LUNCH Rx Instructions: per NG guaifenesin 200 mg/5 mL liquid 400 mg feeding tube Q6H PRN (Reason: Cough) Qty: 473 11RF simethicone 40 mg/0.6 mL drops,suspension 40 mg G-tube PRN PRN (Reason: GAS) Label Comments: gas metoclopramide HCl 5 mg/5 mL solution 5 mg feeding tube TID Label Comments: stomach phenobarbital 20 MG/5 ML elixir 60 mg G-tube BID Label Comments: 20 mg/5 Lactobacillus acidophilus 1 EACH capsule 1 cap G-tube DAILY lorazepam 1 MG tablet 2 mg G-tube Q8 PRN (Reason: Agitation) Label Comments: TAKE ONE TABLET BY MOUTH THREE TIMES DAILY NEEDED ferrous sulfate 15 MG/ML drops 75 mg G-tube DAILY Cough Assist 1 dose .Route .MEDSUPPLY Rx Instructions: Inspiratory and Expiratory times of 20-40 seconds with a 1-2 second pause. oxygen concentrator 1 dose .Route .MEDSUPPLY Rx Instructions: As directed ondansetron HCl 4 MG tablet 5 ml feeding tube DAILY PRN (Reason: Nausea) baclofen 5 mg/5 mL solution 20 mg G-tube Q6H lactose-reduced food with fibr 0.06 gram-1.2 kcal/mL liquid 1,000 ml G-tube DAILY Rx Instructions: 50 ml/hr continuous ascorbic acid (vitamin C) 500 MG/5 ML syrup 500 mg G-tube DAILY Rx Instructions: take this medication with the iron supplement gabapentin 250 MG/5 ML solution 500 mg G-tube 4X/DAY plecanatide 3 mg tablet 3 mg GT DAILY alum-mag hydroxide-simeth 200-200-20 mg/5 mL Suspension 20 ml feeding tube 4X/DAY doxazosin 2 mg tablet 2 mg GT DAILY betamethasone dipropionate 0.05 % cream 1 applic topical BID PRN (Reason: Check with primary doctor) Rx Instructions: Apply sparingly to affected area Primary Care Provider: Timmy Conn Referrals: Timmy Conn MD [Primary Care Provider] - As Needed Disposition Disposition: Home, Self Care
--- NOTE | 2022-02-24 18:27 | RAD_ITS ---
EXAM: XR CHEST, 1 VIEW CLINICAL INDICATION: Trouble breathing, the and TECHNIQUE: Frontal view of the chest. This report was created using [employer] report generation technology. COMPARISON: 12/01/2021 FINDINGS: LUNGS AND PLEURAL SPACES: Unremarkable. No consolidation or edema. No pneumothorax. No effusion. HEART: Unremarkable. Cardiac silhouette not enlarged. MEDIASTINUM: Central airways and mediastinal contour are unremarkable. BONES/JOINTS: Unremarkable. SOFT TISSUES: Unremarkable. TUBES, LINES AND DEVICES: Tracheostomy tube and right-sided Port-A-Cath in stable position. There is mild elevation of the right hemidiaphragm. RAD/Chest 1 View (Portable) IMPRESSION: No acute findings in the chest. Electronically Signed: Hugh De Santiago MD at 18:44 EST ,
[2022-02-24 18:33] LABS: ALB/GLOB Ratio 0.6 RATIO (0.9-2.4); AST(SGOT) 11 U/L (15-37); Alanine Aminotransfer ALT/SGPT 23 U/L (16-61); Albumin, Serum 3.4 g/dL (3.2-5.0); Alkaline Phosphatase 162 U/L (45-117); Anion Gap 7 (5-15); BUN 14 mg/dL (7-18); BUN/Creat Ratio 34.3 RATIO (10-20); Chloride 102 mmol/L (98-107); Creatinine, Serum 0.41 mg/dL (0.70-1.30); EST Glomerular Filtration Rate 247 mL/min (>60); Est Glom Filt Rate - Afr Amer 299 mL/min (>60); Estimated Creatinine Clearance 169.38 ml/min; Globulin 5.4 g/dL (2.2-4.2); Glucose 110 mg/dL (74-106); Potassium 4.2 mmol/L (3.5-5.1); Protein, Total 8.8 g/dL (6.4-8.2); Sodium Level 135 mmol/L (136-145)
--- NOTE | 2022-02-24 19:02 | ED.RN ---
family giving home meds though GT tube, flushing with 250 ml water.
[2022-02-24] MEDS: LORazepam 1 MG Tablet 2 MG GT (19:49)
[2022-02-24 19:50] VITALS: PULSE 112; RESP 14; O2SAT 94
[2022-02-24 22:38] VITALS: BP 127/78; PULSE 78; RESP 13; TEMP 37.2; O2SAT 95
== END 2022-02-24 22:46 | disposition home or self-care (01) ==
PROVIDERS: Emergency Provider Emergency Medicine; PCP Family Medicine; Visit Provider Emergency Medicine
DX: R06.00 Dyspnea, unspecified (principal); Z99.11 Dependence on respirator [ventilator] status; Z93.3 Colostomy status; G80.9 Cerebral palsy, unspecified; H10.022 Other mucopurulent conjunctivitis, left eye; I34.1 Nonrheumatic mitral (valve) prolapse; R00.0 Tachycardia, unspecified; Z79.899 Other long term (current) drug therapy
CPT/HCPCS: 71045; 80053; 85025; 99285

== ENCOUNTER 2022-03-23 09:59 | Outpatient (RCR) | payer MEDICARE, BC, MEDICAID, SELFPAY ==
[2022-03-23 10:15] LABS: Absolute Lymphocyte Count 1.82 X10^3/uL (0.83-4.51); Absolute Neutrophil Count 3.9 X10^3/uL (2.0-7.7); Basophil# 0.01 X10^3/uL; Basophil% 0.2 % (0-1); Eosinophil# 0.25 X10^3/uL; Eosinophils% 3.8 % (0-5); Hematocrit 34.4 % (40-54); Hemoglobin 10.8 g/dL (13.0-16.5); Lymphocyte # 1.82 X10^3/ul (0.83-4.51); Lymphocyte % 27.7 % (19-41); Mean Corp Hgb Conc 31.4 g/dL (32-36); Mean Platelet Vol. 10.2 fl (6.2-12.0); Monocyte# 0.52 X10^3/uL; Monocyte% 7.9 % (0-10); NRBC Flagged by Analyzer 0 % (0-5); Neutrophil # 3.94 X10^3/uL (2.7-7.7); Neutrophil % 59.9 % (47-70); Platelet Count 169 K/mm3 (150-450); RBC Distribution Width CV 13.9 % (11.6-14.6); RBC Distribution Width SD 43.8 fl (35.1-43.9); White Blood Count 6.6 K/mm3 (4.4-11.0)
[2022-03-23 10:23] LABS: Anion Gap 4 (5-15); BUN 15 mg/dL (7-18); Calcium,Total 8.3 mg/dL (8.5-10.1); Chloride 104 mmol/L (98-107); Creatinine, Serum 0.25 mg/dL (0.70-1.30); EST Glomerular Filtration Rate 435 mL/min (>60); Est Glom Filt Rate - Afr Amer 527 mL/min (>60); Glucose 104 mg/dL (74-106); Potassium 3.8 mmol/L (3.5-5.1); Sodium Level 139 mmol/L (136-145)
== END 2022-03-24 23:59 ==
LOC: LABSPEC 09:59
PROVIDERS: PCP Family Medicine; Referring Provider Internal Medicine Cardiovascular Disease; Visit Provider Internal Medicine Cardiovascular Disease
DX: E87.1 Hypo-osmolality and hyponatremia (principal); J96.11 Chronic respiratory failure with hypoxia; J96.12 Chronic respiratory failure with hypercapnia; E87.6 Hypokalemia; D63.8 Anemia in other chronic diseases classified elsewhere; D50.9 Iron deficiency anemia, unspecified; K92.2 Gastrointestinal hemorrhage, unspecified
CPT/HCPCS: 80048; 85025

== ENCOUNTER 2022-03-24 17:07 | Inpatient (IN) | payer MEDICARE, BC, MEDICAID, SELFPAY ==
[2022-03-24] VITALS (14 sets, daily range): BP systolic 80–145; BP diastolic 53–123; PULSE 95–155; RESP 19–44; TEMP 36.7–40.3; O2SAT 44–95; BMI 31.2; BMI 33.8
--- NOTE | 2022-03-24 17:36 | EDS_ITS ---
HPI History of Present Illness Chief Complaint: Shortness of Breath Detail of Chief Complaint: Elevated temperature, increased shortness of breath with rapid respiratory Informant: parent Onset/Context/Timing Onset: Today (This morning) Context: Sudden Onset Timing: Continuous Quality: Respiratory rate of 40 and heart rate of 140. Location: Home Current Severity: Mild Maximum Severity: Moderate Worsened by: Unknown Relieved by: Nothing Associated Symptoms Associated Symptoms: Unknown, nonverbal Narrative Narrative: Patient is a 42-year-old vent dependent person cared for by his parents. Mother was the primary informant. At 1600 mother had a document temperature 100.9 axillary. Respiratory rate has been as high as 40. Heart rate has been as high as 140. He has had increased secretions that are colored noted from his trach. There is been no change in feeding. There is no odor or change in color of his urine. He has had no diarrhea. Prior similar symptoms: Yes Recent Illness/Hospitalization: Yes [facility] Medical History Acute dyspnea Anemia in chronic illness Cerebral palsy Colostomy prolapse Debility Edema History of seizure disorder Iron deficiency anemia Nonrheumatic mitral valve prolapse Obesity Pseudomonas pneumonia Pulmonary embolism on left (06/14/19) Redundant colon Thrombocytopenia Tracheostomy in place Upper GI bleeding (04/2020) Home Medications phenobarbital 20 mg/5 mL (4 mg/mL) oral elixir 60 mg G-tube BID pain 02/19/17 [History Last Taken 04/24/20 21:00] Lactobacillus acidophilus 1 cap G-tube DAILY gut health 02/04/18 [History Last Taken 04/24/20 09:00] metoclopramide HCl 5 mg/5 mL oral solution 5 mg feeding tube TID thrush 09/16/18 [History Last Taken 04/24/20 21:00] lorazepam 1 mg tablet 2 mg G-tube Q8 PRN Agitation 10/08/18 [History Last Taken 04/24/20 22:00] Cough Assist 1 dose .Route .MEDSUPPLY assist in clearing secretions 12/25/18 [History Last Taken Unknown] ferrous sulfate 15 mg iron (75 mg)/mL oral drops 75 mg G-tube DAILY supplement 12/25/18 [History Last Taken 04/24/20 16:00] oxygen concentrator 1 dose .Route .MEDSUPPLY second unit, 4 LPM cont all modali ties 12/25/18 [History Last Taken Unknown] ondansetron HCl 4 mg tablet 5 ml feeding tube DAILY PRN Nausea 05/09/19 [History Last Taken Unknown] ascorbic acid (vitamin C) 500 mg/5 mL oral syrup 500 mg G-tube DAILY Check with primary doctor 08/04/19 [History Last Taken Unknown] gabapentin 250 mg/5 mL oral solution 500 mg G-tube 4X/DAY Check with primary doctor 09/26/19 [History Last Taken 04/25/20 06:00] albuterol sulfate 2.5 mg/3 mL (0.083 %) solution for nebulization 2.5 mg inhalation Q4H PRN Sob &/Or Wheezing 11/27/20 [History Last Taken Unknown] baclofen 5 mg/5 mL oral solution 20 mg G-tube Q6H Spasticity 11/27/20 [History Last Taken Unknown] esomeprazole magnesium 40 mg granules delayed release for susp 40 mg G-tube BID Check with primary doctor 11/27/20 [History Last Taken Unknown] famotidine 20 mg tablet (Pepcid) 20 mg feeding tube LUNCH Check with primary doctor 11/27/20 [History Last Taken Unknown] lactose-reduced food with fiber 0.06 gram-1.2 kcal/mL oral liquid 1,000 ml G-tube DAILY Check with primary doctor 11/27/20 [History Last Taken Unknown] plecanatide 3 mg tablet 3 mg G-tube DAILY Check with primary doctor 11/27/20 [History Last Taken Unknown] simethicone 40 mg/0.6 mL oral drops,suspension 40 mg G-tube PRN PRN GAS 11/27/20 [History Last Taken Unknown] aluminum-mag hydroxide-simethicone 200 mg-200 mg-20 mg/5 mL oral susp 20 ml feeding tube 4X/DAY Check with primary doctor 01/11/21 [History Last Taken Unknown] doxazosin 2 mg tablet 2 mg PO DAILY Check with primary doctor 11/30/21 [History Last Taken Unknown] guaifenesin 200 mg/5 mL oral liquid 400 mg (10 mL) feeding tube Q6H PRN Cough #473 mL 12/19/21 [Rx Last Taken Unknown] betamethasone dipropionate 0.05 % topical cream 1 applic topical BID PRN Check with primary doctor 01/06/22 [History Last Taken Unknown] ciprofloxacin HCl 0.3 % eye drops 1 drp LEFT EYE Q4H 7 days #5 mL 02/24/22 [Rx Last Taken Unknown] Allergy/AdvReac Type Severity Reaction Status Date / Time cisapride monohydrate Allergy Rash Verified 03/24/22 17:08 [From Propulsid] house dust Allergy NEEDS Verified 03/24/22 17:08 FOLLOW-UP codeine AdvReac hallucinati Verified 03/24/22 17:08 ons metronidazole [From Flagyl] AdvReac Rash Verified 03/24/22 17:08 morphine AdvReac Hallucinati Verified 03/24/22 17:08 ons Family History Mother Hepatitis C Hypertension Father CAD (coronary artery disease) Atrial fibrillation Hypertension H/O heart artery stent Surgical History Colostomy in place Heel cord lengthening History of colostomy History of eye surgery History of gastrostomy tube placement History of open reduction and internal fixation (ORIF) procedure History of soft tissue release Status post insertion of intrathecal baclofen pump Social History household members: family housing: house current occupational status: disabled Smoking Status: Never smoker alcohol intake: never substance use type: does not use caffeine: No ROS ROS ED Review of Systems ROS Unobtainable: due to mental status Constitutional Constitutional ED: Reports fever(s) Cardiovascular Cardiovascular: Reports racing heartbeat Respiratory/Chest Respiratory/Chest: Reports cough and dyspnea EXAM Physical Exam Const Vital Signs: 03/24/22 17:08 03/24/22 17:12 03/24/22 17:16 Temperature 98.1 F Temperature Source Temporal Pulse Rate 134 H 129 H Respiratory Rate 36 H 24 H Respiratory Effort Short of Breath Labored Respiratory Pattern Tachypnea Blood Pressure 132/83 H 143/93 H Blood Pressure Mean 99 109 Pulse Ox 95 95 Oxygen Delivery Method Ambu-Bag Mechanical Ventilator 03/24/22 17:47 03/24/22 19:02 Temperature 102.1 F H Temperature Source Axillary Pulse Rate 128 H Respiratory Rate Respiratory Effort Respiratory Pattern Blood Pressure 112/77 140/96 H Blood Pressure Mean 88 110 Pulse Ox 94 Oxygen Delivery Method Mechanical Ventilator Positive well nourished and well developed Constitutional Narrative: He appears agitated. Question of slight mottling of his extremities. He postures when the blood pressure cuff inflates. General Appearance ED: well developed and pallor; Negative for cyanotic or diaphoretic HEENT Reports dry mucous membranes HEENT Narrative: Head is atraumatic normocephalic. Ears normal. Nares patent. Mucosa is dry. Mouth ED: Yes dry mucous membranes Mouth: dry mucous membranes Eyes PERRL and EOMs intact bilaterally General Eye ED: Yes pale conjunctiva; Negative for scleral icterus Neck no lymphadenopathy, supple and no JVD Neck Narrative: Trach noted. Chest Wall inspection of chest normal and palpation of chest normal Resp No normal respiratory effort and No clear to auscultation bilaterally Auscultation: rales right base and wheezes expiratory wheezes (Right greater than left.) Cardio regular rhythm, S1 normal heart sound, S2 normal heart sound and no murmurs Rate: tachycardic GI GI Narrative: Gastrostomy port noted. Patient is status post colectomy with herniation noted. This is chronic. Tissue appears viable. Inspection: abdominal distention Auscultation: hypoactive bowel sounds Extremity Extremity Narrative: Patient has contractures. There is mottling of the extremities. Capillary refill is 2 seconds. Neuro Neuro Narrative: Altered mental status due to cerebral palsy and cognitive impairment. Skin no wounds General Skin Exam: pallor; Negative for jaundice MDM MDM MDM Narrative Medical decision making narrative: With temperature 102.1 tachycardia tachypnea and colored sputum from trach site concern patient has respiratory infection. Sepsis work-up was undertaken. We will compare lab results to prior. Patient's oxygenation is appropriate on mechanical ventilation. Parents brought his ventilator to the hospital. November 2020 patient was admitted for ventilator associated pneumonia due to Pseudomonas. Patient's axillary temperature was 104.5. His heart rate is 150. Concerned that patient may have aspirated since he is vomited twice and did have gastric contents noted from trach. Since patient has history of Pseudomonas infection with last admission we will treat for Zosyn which would cover nosocomial aspiration as well as Pseudomonas. Patient did receive a fluid bolus. He did receive Tylenol for his elevated temperature. Lab Data Attestation: I reviewed the patient's lab results. Lab results narrative: White count is normal. Patient has anemia, which is chronic. Basic metabolic p tari does not elevated glucose 145. Lactate 2.7. Labs: Laboratory Results - last 24 hr 03/24/22 03/24/22 03/24/22 17:40 17:40 17:40 WBC 7.5 RBC 4.25 L Hgb 11.5 L Hct 36.3 L MCV 85.4 MCH 27.1 MCHC 31.7 L RDW Std Deviation 43.3 RDW Coeff of Emilee 14.0 Plt Count 141 L MPV 10.4 Immature Gran % (Auto) 0.100 Neut % (Auto) 79.9 H Lymph % (Auto) 13.1 L [place] % (Auto) 5.3 Eos % (Auto) 1.3 Baso % (Auto) 0.3 Absolute Neuts (auto) 6.0 Absolute Lymphs (auto) 0.99 Nucleated RBC % 0 Sodium 133 L Potassium 3.8 Chloride 99 Carbon Dioxide 23.0 Anion Gap 11 BUN 10 Creatinine 0.45 L Estim Creat Clear Calc 154.32 Est GFR (MDRD) Af Amer 267 Est GFR (MDRD) Non-Af 220 BUN/Creatinine Ratio 22.2 H Glucose 145 H Lactic Acid 2.7 H* Calcium 8.6 Radiography Chest X-Ray - ED: 1 View and Read by ED Physician (Reviewed portable chest x-ray and apparently reviewed by me. Patient has a chronically elevated right pro diaphragm. There is evidence of atelectasis. Is no obvious infiltrate. There is no effusion. Cardiac silhouette is unremarkable. There is no acute findings.) Diagnostic Testing: Clinical Impression(s) from Imaging Studies Chest X-Ray 03/24/22 17:42 IMPRESSION: Elevated right hemidiaphragm and mild basilar atelectasis Electronically Signed: Gerald Anne MD at 18:09 EST Reading Location ID and State: [facility] / [place] , Service support , Rhythm Strip Rhythm Strip: Sinus Tach Rate: 140 Ectopy: None Critical Care Time Critical Care Time: Yes Critical care time (excluding procedures): 30-74 minutes (32), Including time spent: (History, physical, documentation, interpretation laboratory results, treatment for sepsis), Discussing w/Patient &/or Family/Datastage Developer, Discussing w /Consultants, Arranging Admission or Transfer and Performing Direct Patient Care at Bedside Discharge Plan Triage Chief Complaint: Shortness of Breath ED Provider: Dario De La Torre Dx/Rx/DC Orders Clinical Impression: Sepsis, Cerebral palsy, Aspiration into airway, Hyperpyrexia, Chronic respiratory failure with hypoxia, Sinus tachycardia, Acidosis, lactic Prescriptions: No Action albuterol sulfate 2.5 mg /3 mL (0.083 %) solution for nebulization 2.5 mg inhalation Q4H PRN (Reason: Sob &/Or Wheezing) esomeprazole magnesium [address] for susp in packet 40 mg G-tube BID famotidine [Pepcid] 20 mg tablet 20 mg feeding tube LUNCH Rx Instructions: per NG guaifenesin 200 mg/5 mL liquid 400 mg feeding tube Q6H PRN (Reason: Cough) Qty: 473 11RF simethicone 40 mg/0.6 mL drops,suspension 40 mg G-tube PRN PRN (Reason: GAS) Label Comments: gas metoclopramide HCl 5 mg/5 mL solution 5 mg feeding tube TID Label Comments: stomach phenobarbital 20 MG/5 ML elixir 60 mg G-tube BID Label Comments: 20 mg/5 Lactobacillus acidophilus 1 EACH capsule 1 cap G-tube DAILY lorazepam 1 MG tablet 2 mg G-tube Q8 PRN (Reason: Agitation) Label Comments: TAKE ONE TABLET BY MOUTH THREE TIMES DAILY NEEDED ferrous sulfate 15 MG/ML drops 75 mg G-tube DAILY Cough Assist 1 dose .Route .MEDSUPPLY Rx Instructions: Inspiratory and Expiratory times of 20-40 seconds with a 1-2 second pause. oxygen concentrator 1 dose .Route .MEDSUPPLY Rx Instructions: As directed ondansetron HCl 4 MG tablet 5 ml feeding tube DAILY PRN (Reason: Nausea) baclofen 5 mg/5 mL solution 20 mg G-tube Q6H lactose-reduced food with fibr 0.06 gram-1.2 kcal/mL liquid 1,000 ml G-tube DAILY Rx Instructions: 50 ml/hr continuous ascorbic acid (vitamin C) 500 MG/5 ML syrup 500 mg G-tube DAILY Rx Instructions: take this medication with the iron supplement gabapentin 250 MG/5 ML solution 500 mg G-tube 4X/DAY plecanatide 3 mg tablet 3 mg GT DAILY alum-mag hydroxide-simeth 200-200-20 mg/5 mL Suspension 20 ml feeding tube 4X/DAY doxazosin 2 mg tablet 2 mg GT DAILY betamethasone dipropionate 0.05 % cream 1 applic topical BID PRN (Reason: Check with primary doctor) Rx Instructions: Apply sparingly to affected area ciprofloxacin HCl 0.3 % drops 1 drp LEFT EYE Q4H 7 Days Qty: 5 0RF Rx Instructions: administer while awake Primary Care Provider: Timmy Conn Referrals: Timmy Conn MD [Primary Care Provider] - Disposition Disposition: Acute Care Hospital [facility]
--- NOTE | 2022-03-24 17:42 | RAD_ITS ---
STUDY: X-RAY CHEST REASON FOR EXAM: Male, 42 years old. Shortness of breath and fever TECHNIQUE: AP portable COMPARISON: February 24, 2022 FINDINGS: Elevated right hemidiaphragm and mild right basilar atelectasis or infiltrate.. There is no demonstrated pleural abnormality. Tracheostomy noted within the midline. Heart is enlarged.. Normal mediastinum and rachelle. Normal visualized pulmonary arteries. Normal visualized aortic arch and descending thoracic aorta. Mediport catheter seen on the right with tip in right atrium Normal visualized thoracic spine. Normal visualized ribs, clavicles, and shoulders. There is no demonstrated abnormality of the visualized soft tissue structures of the upper abdomen. RAD/Chest 1 View (Portable) IMPRESSION: Elevated right hemidiaphragm and mild basilar atelectasis Electronically Signed: Gerald Anne MD at 18:09 EST ,
--- NOTE | 2022-03-24 17:43 | ED.RN ---
Per Wil, hold catheterizing patient.
[2022-03-24 17:56] LABS: Absolute Lymphocyte Count 0.99 X10^3/uL (0.83-4.51); Basophil# 0.02 X10^3/uL; Basophil% 0.3 % (0-1); Eosinophils% 1.3 % (0-5); Hematocrit 36.3 % (40-54); Hemoglobin 11.5 g/dL (13.0-16.5); Lymphocyte # 0.99 X10^3/ul (0.83-4.51); Lymphocyte % 13.1 % (19-41); Mean Corp Hgb Conc 31.7 g/dL (32-36); Mean Corpuscular Hgb 27.1 pg (27.0-32.0); Mean Corpuscular Volume 85.4 fL (80-94); Mean Platelet Vol. 10.4 fl (6.2-12.0); Monocyte% 5.3 % (0-10); NRBC Flagged by Analyzer 0 % (0-5); Neutrophil # 6.01 X10^3/uL (2.7-7.7); Neutrophil % 79.9 % (47-70); Platelet Count 141 K/mm3 (150-450); RBC Distribution Width SD 43.3 fl (35.1-43.9); Red Blood Count 4.25 M/mm3 (4.6-6.2); White Blood Count 7.5 K/mm3 (4.4-11.0)
[2022-03-24] MEDS: Ondansetron 4 MG/2 ML Vial IV (17:58)
[2022-03-24 18:21] LABS: Anion Gap 11 (5-15); BUN 10 mg/dL (7-18); BUN/Creat Ratio 22.2 RATIO (10-20); Calcium,Total 8.6 mg/dL (8.5-10.1); Chloride 99 mmol/L (98-107); Creatinine, Serum 0.45 mg/dL (0.70-1.30); EST Glomerular Filtration Rate 220 mL/min (>60); Est Glom Filt Rate - Afr Amer 267 mL/min (>60); Estimated Creatinine Clearance 154.32 ml/min; Glucose 145 mg/dL (74-106); Potassium 3.8 mmol/L (3.5-5.1); Sodium Level 133 mmol/L (136-145)
[2022-03-24] MEDS: LORazepam 2 MG/ML Syringe 1 MG IV (18:35)
[2022-03-24 18:37] LABS: Lactic Acid 2.7 mmol/L (0.4-1.9)
--- NOTE | 2022-03-24 20:05 | PCM.HP.STD ---
HPI - General General Date of Admission: 03/24/22 Date of Service: 03/24/22 Chief Complaint: Fever, SOB, vomiting - 1 day HPI Narrative KRISS MICHAEL, is a 42 M who presents with the above. Patient is a 42-year-old male with past medical history of cerebral palsy with spastic quadriplegia, chronic hypoxic respiratory failure on chronic vent support who comes in with fever and tachycardia. History was obtained from his parents. Patient has been slightly tachycardic over the last few days. He was noted to have a high fever more than 102 today with increased work of breathing and tachycardia. This was associated with episodes of vomiting. He was observed to have vomited in the emergency room. His T-max in the ED was more than 105F. His parent did a home COVID test that was negative Emergency room, his blood pressure is 132/83, heart rate was 134, respiratory of 36, temperature 98.1 F, increased to 105F, he was saturating 93% on mechanical ventilator. WBC count is 7.5, hemoglobin 11.5, platelet count 141, sodium is 133, potassium 3.8, chloride 99, bicarbonate 23, BUN 10, creatinine 0.45, glucose 145, lactic acid 2.7. Rapid COVID-19 antigen test as well as influenza screen was negative Admitting chest x-ray showed elevated right hemidiaphragm with mild basilar atelectasis. KUB her abdomen was nonspecific. [facility] Medical History Acute dyspnea Anemia in chronic illness Cerebral palsy Colostomy prolapse Debility Edema History of seizure disorder Iron deficiency anemia Nonrheumatic mitral valve prolapse Obesity Pseudomonas pneumonia Pulmonary embolism on left (06/14/19) Redundant colon Thrombocytopenia Tracheostomy in place Upper GI bleeding (04/2020) Home Medications phenobarbital 20 mg/5 mL (4 mg/mL) oral elixir 60 mg G-tube 5X/DAY pain 02/19/17 [History Last Taken 04/24/20 21:00] Lactobacillus acidophilus 1 cap G-tube DAILY gut health 02/04/18 [History Last Taken 04/24/20 09:00] metoclopramide HCl 5 mg/5 mL oral solution 5 mg feeding tube TID thrush 09/16/18 [History Last Taken 04/24/20 21:00] lorazepam 1 mg tablet 2 mg G-tube Q8 PRN Agitation 10/08/18 [History Last Taken 04/24/20 22:00] Cough Assist 1 dose .Route .MEDSUPPLY assist in clearing secretions 12/25/18 [History Last Taken Unknown] ferrous sulfate 15 mg iron (75 mg)/mL oral drops 75 mg G-tube DAILY supplement 12/25/18 [History Last Taken 04/24/20 16:00] oxygen concentrator 1 dose .Route .MEDSUPPLY second unit, 4 LPM cont all modalities 12/25/18 [History Last Taken Unknown] ondansetron HCl 4 mg tablet 5 ml feeding tube DAILY PRN Nausea 05/09/19 [History Last Taken Unknown] ascorbic acid (vitamin C) 500 mg/5 mL oral syrup 500 mg G-tube DAILY Check with primary doctor 08/04/19 [History Last Taken Unknown] gabapentin 250 mg/5 mL oral solution 500 mg G-tube 4X/DAY Check with primary doctor 09/26/19 [History Last Taken 04/25/20 06:00] albuterol sulfate 2.5 mg/3 mL (0.083 %) solution for nebulization 2.5 mg inhalation Q4H PRN Sob &/Or Wheezing 11/27/20 [History Last Taken Unknown] baclofen 5 mg/5 mL oral solution 20 mg G-tube Q6H Spasticity 11/27/20 [History Last Taken Unknown] esomeprazole magnesium 40 mg granules delayed release for susp (Nexium Packet) 40 mg G-tube BID Check with primary doctor 11/27/20 [History Last Taken Unknown] famotidine 20 mg tablet (Pepcid) 20 mg feeding tube LUNCH Check with primary doctor 11/27/20 [History Last Taken Unknown] lactose-reduced food with fiber 0.06 gram-1.2 kcal/mL oral liquid 1,000 ml G-tube DAILY Check with primary doctor 11/27/20 [History Last Taken Unknown] plecanatide 3 mg tablet 3 mg G-tube DAILY Check with primary doctor 11/27/20 [History Last Taken Unknown] simethicone 40 mg/0.6 mL oral drops,suspension 40 mg G-tube PRN PRN GAS 11/27/20 [History Last Taken Unknown] doxazosin 2 mg tablet 2 mg PO DAILY Check with primary doctor 11/30/21 [History Last Taken Unknown] cholecalciferol (vitamin D3) 10 mcg/mL (400 unit/mL) oral drops 50 mcg feeding tube DAILY vitiamin 03/24/22 [History Last Taken Unknown] guaifenesin 200 mg/5 mL oral liquid 200 mg feeding tube Q6H PRN Cough 03/24/22 [History Last Taken Unknown] Allergy/AdvReac Type Severity Reaction Status Date / Time cisapride monohydrate Allergy Rash Verified 03/24/22 17:08 [From Propulsid] house dust Allergy NEEDS Verified 03/24/22 17:08 FOLLOW-UP codeine AdvReac hallucinati Verified 03/24/22 17:08 ons metronidazole [From Flagyl] AdvReac Rash Verified 03/24/22 17:08 morphine AdvReac Hallucinati Verified 03/24/22 17:08 ons Family History Mother Hepatitis C Hypertension Father CAD (coronary artery disease) Atrial fibrillation Hypertension H/O heart artery stent Surgical History Colostomy in place Heel cord lengthening History of colostomy History of eye surgery History of gastrostomy tube placement History of open reduction and internal fixation (ORIF) procedure History of soft tissue release Status post insertion of intrathecal baclofen pump Social History household members: family housing: house current occupational status: disabled Smoking Status: Never smoker alcohol intake: never substance use type: does not use caffeine: No ROS Review of Systems ROS Unobtainable: due to mental status Vital Signs Vital Signs Vital Signs: 03/24/22 17:08 03/24/22 17:12 03/24/22 17:16 Temperature 98.1 F Temperature Source Temporal Pulse Rate 134 H 129 H Respiratory Rate 36 H 24 H Respiratory Effort Short of Breath Labored Respiratory Pattern Tachypnea Blood Pressure 132/83 H 143/93 H Blood Pressure Mean 99 109 Pulse Ox 95 95 Oxygen Delivery Method Ambu-Bag Mechanical Ventilator 03/24/22 17:47 03/24/22 19:02 Temperature 102.1 F H Temperature Source Axillary Pulse Rate 128 H Respiratory Rate Respiratory Effort Respiratory Pattern Blood Pressure 112/77 140/96 H Blood Pressure Mean 88 110 Pulse Ox 94 Oxygen Delivery Method Mechanical Ventilator Weight Weight: 72.575 kg Body Mass Index (BMI) 31.2 Physical Exam Narrative Physical exam: General: Alert, febrile with tach, appears unwell, in moderate respiratory distress with use of accessory muscles of respiration, tachypnea HEENT: Atraumatic Oral: Moist Mucosa Neck: Tracheostomy in situ Lungs:Diminished to auscultation, rhonchorous breath sounds, scattered wheezes Cardiovascular: HS I+II, regular, no murmurs Abdomen: PEG tube, bowel Sounds Present, Soft, Non Tender Extremities:Bilateral leg edema Skin: No rashes, No breakdown Neurological: Grossly intact Psych/Mental Status: Appropriate Results Lab / Micro Data Result Diagrams: 03/24/22 17:40 03/24/22 17:40 Labs: Laboratory Results - last 24 hr 03/24/22 17:40: WBC 7.5, RBC 4.25 L, Hgb 11.5 L, Hct 36.3 L, MCV 85.4, MCH 27.1, MCHC 31.7 L, RDW Std Deviation 43.3, RDW Coeff of Emilee 14.0, Plt Count 141 L, MPV 10.4, Immature Gran % (Auto) 0.100, Neut % (Auto) 79.9 H, Lymph % (Auto) 13.1 L, [place] % (Auto) 5.3, Eos % (Auto) 1.3, Baso % (Auto) 0.3, Absolute Neuts (auto) 6.0, Absolute Lymphs (auto) 0.99, Nucleated RBC % 0 03/24/22 17:40: Sodium 133 L, Potassium 3.8, Chloride 99, Carbon Dioxide 23.0, Anion Gap 11, BUN 10, Creatinine 0.45 L, Estim Creat Clear Calc 154.32, Est GFR (MDRD) Af Amer 267, Est GFR (MDRD) Non-Af 220, BUN/Creatinine Ratio 22.2 H, Glucose 145 H, Calcium 8.6 03/24/22 17:40: Lactic Acid 2.7 H* Rhythm Strip Rhythm Strip: Sinus Tach Rate: 140 Ectopy: None Radiology Impression Chest X-Ray 03/24/22 17:42 IMPRESSION: Elevated right hemidiaphragm and mild basilar atelectasis Electronically Signed: Gerald Anne MD at 18:09 EST Reading Location ID and State: [facility] / [place] , Service support , Assessment & Plan Assessment/Plan (1) Sepsis: (2) Chronic respiratory failure with hypoxia: (3) Aspiration into airway: PLAN: Plan 1. Severe sepsis secondary to aspiration pneumonitis/early ventilator associated pneumonia Patient with fever >105F, tachypnea, seen vomiting with concern for aspiration Rapid COVID-19 test as well as influenza screen negative Chest x-ray shows elevated right hemidiaphragm/mild right bibasilar atelectasis/infiltrate Admit to PCU, IV Zosyn, follow-up on blood cultures, IV fluids Pulmonology consult 2. Acute episodes of nausea and vomiting likely secondary to #1 We will get KUB to rule out bowel obstruction 3. Chronic respiratory failure, on chronic vent settings via tracheostomy Continue breathing treatments as needed Pulmonology consult 4. Cerebral palsy with spastic quadriplegia, continue with baclofen, gabapentin, Ativan 5. Seizure disorder, continue phenobarbital 6. Chronic dysphagia, s/p PEG tube, continue with tube feeds 7. DVT PPx - Heparin SC Charges/Coding Visit Charges Inpatient E&M: 77621 Init Hosp L3
[2022-03-24] MEDS: Acetaminophen 650 MG/20 ML UDC 500 MG GT (20:14)
[2022-03-24 20:55] LABS: Bacteria 0 SEEN /hpf (None Seen); Mucous, Urine 0 SEEN /hpf (<or=2+); Squamous Epithelial Cells - UA 0 SEEN /hpf (0-5)
[2022-03-24 20:59] LABS: Glucose, Dipstick Normal (Normal); Ketone-Dipstick 15 mg/dl (Negative); Leukocyte Esterase-Dipstick 25 /ul (Negative); Nitrite-Dipstick Negative (Negative); Occult Blood-Urine 10 /ul (Negative); Protein-Dipstick 30 mg/dl (Negative); Specific Gravity, Urine 1.005 (1.002-1.030); Urine Bilirubin Dipstick Negative (Negative); Urine Urobilinogen Normal (Normal)
[2022-03-24 21:04] LABS: Color, Urine Yellow (Yellow); Urine Clarity Clear (Clear)
[2022-03-24 21:17] LABS: Red Blood Cells-Urine 0-5 SEEN /hpf (0-5); White Blood Cells 0-5 SEEN /hpf (0-5)
[2022-03-24 21:43] LABS: Reflex Lactate? Y
--- NOTE | 2022-03-24 21:50 | RAD_ITS ---
STUDY: X-RAY - ABDOMEN/PELVIS REASON FOR EXAM: Male, 42 years old. Nausea and vomiting TECHNIQUE: KUB COMPARISON: None. FINDINGS: Normal visualized lung bases. There is an unremarkable bowel gas pattern. There is no demonstrated free abdominal air. PEG tube noted projecting over the left upper quadrant. The visualized liver, spleen and kidneys are grossly normal in size and morphology. Normal soft tissue structures. Lumbar spine demonstrates severe scoliosis and degenerative changes. There are degenerative changes of the right hip and pseudosubluxation of the left hip RAD/Abdomen Single View (Portable) IMPRESSION: Nonspecific abdomen Electronically Signed: Gerald Anne MD at 22:32 EST ,
[2022-03-24 22:38] LABS: AST(SGOT) 22 U/L (15-37); Alanine Aminotransfer ALT/SGPT 20 U/L (16-61); Albumin, Serum 3.4 g/dL (3.2-5.0); Alkaline Phosphatase 137 U/L (45-117); Bilirubin, Direct 0.07 mg/dL (0.00-0.30); Globulin 4.9 g/dL (2.2-4.2); Protein, Total 8.3 g/dL (6.4-8.2)
[2022-03-24] MEDS: 0.9% Normal Saline 1,000 ML 150 ML IV (22:43)
[2022-03-24 23:32] LABS: Lactic Acid 2.9 mmol/L (0.4-1.9)
[2022-03-24] MEDS: Metoclopramide 10 MG/10 ML UDC 5 MG GT (23:52)
[2022-03-24] MEDS: BACLOFEN 5 MG/ML 20 MG PO (23:52)
[2022-03-24] MEDS: Lansoprazole 15 MG Capsule.DR 30 MG NG (23:53)
[2022-03-24] MEDS: GABAPENTIN 250 MG/5 ML SOLUTION 500 MG GT (23:53)
[2022-03-24] MEDS: Phenobarbital 20 MG/5 ML UDC 60 MG GT (23:55)
[2022-03-25] VITALS (58 sets, daily range): BP systolic 73–133; BP diastolic 42–92; PULSE 61–99; RESP 14–22; TEMP 36.6–37.3; O2SAT 89–97
[2022-03-25] MEDS: CLARIFY ORDER 1 EACH NOTE (00:11)
[2022-03-25] MEDS: 0.9% Saline Lock 10 ML Syringe IV (03:32)
--- NOTE | 2022-03-25 04:20 | PCM.PN.BLA ---
Progress Note Despite fluid boluses and maintenance fluid of 150 mils per hour, patient remains persistently hypotensive with MAP less than 55 Tachycardia and fever however resolved Will start on Levophed drip and manage as septic shock Switch to ICU status from PCU
[2022-03-25 05:09] LABS: Absolute Lymphocyte Count 1.28 X10^3/uL (0.83-4.51); Basophil# 0.01 X10^3/uL; Basophil% 0.1 % (0-1); Eosinophil# 0.01 X10^3/uL; Eosinophils% 0.1 % (0-5); Hematocrit 31.5 % (40-54); Hemoglobin 10.1 g/dL (13.0-16.5); Lymphocyte # 1.28 X10^3/ul (0.83-4.51); Lymphocyte % 13.4 % (19-41); Mean Corp Hgb Conc 32.1 g/dL (32-36); Mean Corpuscular Hgb 27.2 pg (27.0-32.0); Mean Corpuscular Volume 84.9 fL (80-94); Mean Platelet Vol. 9.8 fl (6.2-12.0); Monocyte# 1.22 X10^3/uL; Monocyte% 12.8 % (0-10); NRBC Flagged by Analyzer 0 % (0-5); Neutrophil # 6.96 X10^3/uL (2.7-7.7); Neutrophil % 73.1 % (47-70); Platelet Count 142 K/mm3 (150-450); RBC Distribution Width CV 14.3 % (11.6-14.6); RBC Distribution Width SD 44.3 fl (35.1-43.9); Red Blood Count 3.71 M/mm3 (4.6-6.2); White Blood Count 9.5 K/mm3 (4.4-11.0)
[2022-03-25] MEDS: BACLOFEN 5 MG/ML 20 MG PO ×3 (05:23→18:37)
[2022-03-25] MEDS: Phenobarbital 20 MG/5 ML UDC 60 MG GT ×5 (05:24→21:24)
[2022-03-25] MEDS: Metoclopramide 10 MG/10 ML UDC 5 MG GT ×3 (05:24→21:19)
[2022-03-25] MEDS: Heparin Injection (Vial) 5,000 UNIT/ML VIAL 5000 UNIT SC ×3 (05:25→21:25)
[2022-03-25 05:26] LABS: ALB/GLOB Ratio 0.6 RATIO (0.9-2.4); AST(SGOT) 32 U/L (15-37); Alanine Aminotransfer ALT/SGPT 30 U/L (16-61); Albumin, Serum 2.6 g/dL (3.2-5.0); Alkaline Phosphatase 111 U/L (45-117); Anion Gap 9 (5-15); BUN 10 mg/dL (7-18); BUN/Creat Ratio 32.7 RATIO (10-20); Calcium,Total 7.6 mg/dL (8.5-10.1); Chloride 106 mmol/L (98-107); Creatinine, Serum 0.31 mg/dL (0.70-1.30); EST Glomerular Filtration Rate 345 mL/min (>60); Est Glom Filt Rate - Afr Amer 417 mL/min (>60); Estimated Creatinine Clearance 350.36 ml/min; Globulin 4.3 g/dL (2.2-4.2); Glucose 117 mg/dL (74-106); Potassium 3.2 mmol/L (3.5-5.1); Protein, Total 6.9 g/dL (6.4-8.2); Sodium Level 139 mmol/L (136-145)
--- NOTE | 2022-03-25 06:54 | PN.HOSP_ITS ---
Subjective Subjective Resting in bed on vent settings with mother at bedside. Remains on levo but BP maintaining, receiving potassium and Zosyn as well as fluids. Mother reports she does think he is doing better Objective Data Objective Data Vital Signs: Vital Signs Temp Pulse Resp BP Pulse Ox O2 Del Method O2 Flow Rate 98.4 F 82 20 H 107/74 96 Mechanical Ventilator 4 03/25/22 06:00 03/25/22 06:00 03/25/22 06:00 03/25/22 06:00 03/25/22 06:00 03/25/22 06:00 03/25/22 06:00 Oxygen Flow Rate (L/min) 4 Oxygen Delivery Method Mechanical Ventilator Weight: 78.2 kg Body Mass Index (BMI) 33.8 Intake & Output: Intake and Output for Last 24 Hours 03/23/22 03/24/22 03/25/22 23:59 23:59 23:59 Intake Total 650 / 650 1405.84 / 1405.84 Balance 650 / 650 1405.84 / 1405.84 Lab / Micro Data Result Diagrams: 03/25/22 05:00 03/25/22 05:00 Labs: Laboratory Results - last 24 hr 03/24/22 17:40: WBC 7.5, RBC 4.25 L, Hgb 11.5 L, Hct 36.3 L, MCV 85.4, MCH 27.1, MCHC 31.7 L, RDW Std Deviation 43.3, RDW Coeff of Emilee 14.0, Plt Count 141 L, MPV 10.4, Immature Gran % (Auto) 0.100, Neut % (Auto) 79.9 H, Lymph % (Auto) 13.1 L, [place] % (Auto) 5.3, Eos % (Auto) 1.3, Baso % (Auto) 0.3, Absolute Neuts (auto) 6.0, Absolute Lymphs (auto) 0.99, Nucleated RBC % 0 03/24/22 17:40: Sodium 133 L, Potassium 3.8, Chloride 99, Carbon Dioxide 23.0, Anion Gap 11, BUN 10, Creatinine 0.45 L, Estim Creat Clear Calc 154.32, Est GFR (MDRD) Af Amer 267, Est GFR (MDRD) Non-Af 220, BUN/Creatinine Ratio 22.2 H, Glucose 145 H, Calcium 8.6 03/24/22 17:40: Lactic Acid 2.7 H* 03/24/22 17:40: Total Bilirubin 0.30, Direct Bilirubin 0.07, AST 22, ALT 20, Alkaline Phosphatase 137 H, Total Protein 8.3 H, Albumin 3.4, Globulin 4.9 H 03/24/22 20:50: Urine Color Yellow, Urine Clarity Clear, Urine pH 7.0, Ur Specific [place] 1.005, Urine Protein 30 H, Urine Glucose (UA) Normal, Urine Ketones 15 H, Urine Occult Blood 10 H, Urine Nitrite Negative, Urine Bilirubin Negative, Urine Urobilinogen Normal, Ur Leukocyte Esterase 25 H, Urine RBC 0-5 SEEN, Urine WBC 0-5 SEEN, Ur Squamous Epith Cells 0 SEEN, Urine Bacteria 0 SEEN, Urine Mucus 0 SEEN 03/24/22 22:50: Lactic Acid 2.9 H* 03/25/22 05:00: WBC 9.5, RBC 3.71 L, Hgb 10.1 L, Hct 31.5 L, MCV 84.9, MCH 27.2, MCHC 32.1, RDW Std Deviation 44.3 H, RDW Coeff of Emilee 14.3, Plt Count 142 L, MPV 9.8, Immature Gran % (Auto) 0.500, Neut % (Auto) 73.1 H, Lymph % (Auto) 13.4 L, [place] % (Auto) 12.8 H, Eos % (Auto) 0.1, Baso % (Auto) 0.1, Absolute Neuts (auto) 7.0, Absolute Lymphs (auto) 1.28, Nucleated RBC % 0 03/25/22 05:00: Sodium 139, Potassium 3.2 L, Chloride 106, Carbon Dioxide 24.0, Anion Gap 9, BUN 10, Creatinine 0.31 L, Estim Creat Clear Calc 350.36, Est GFR (MDRD) Af Amer 417, Est GFR (MDRD) Non-Af 345, BUN/Creatinine Ratio 32.7 H, Glucose 117 H, Calcium 7.6 L, Total Bilirubin 0.30, AST 32, ALT 30, Alkaline Phosphatase 111, Total Protein 6.9, Albumin 2.6 L, Globulin 4.3 H, Albumin/Globulin Ratio 0.6 L Micro: Microbiology 03/24/22 22:42 Mucosa - Nasopharyngeal Respiratory Panel (PCR) - Final 03/24/22 20:50 Nasal Secretion SARS-CoV-2 & FLU Antigen (Rapid) - Final Radiography Diagnostic Testing: Radiology Impression Chest X-Ray 03/24/22 17:42 IMPRESSION: Elevated right hemidiaphragm and mild basilar atelectasis Electronically Signed: Gerald Anne MD at 18:09 EST , KUB X-Ray 03/24/22 21:50 IMPRESSION: Nonspecific abdomen Electronically Signed: Gerald Anne MD at 22:32 EST , Rhythm Strip Rhythm Strip: Sinus Tach Rate: 140 Ectopy: None Physical Exam Narrative General: Laying in bed no acute distress HEENT: Tongue protuberant Eyes: Not opening eyes with stimulation but is moving Neck: Trach in place Respiratory: Somewhat coarse bilaterally with some transmitted upper or air sounds and a few scattered wheezes Cardiovascular: Regular rate and rhythm GI: Soft, did not have any guarding or rigidity Extremities: No edema, contractures noted Musculoskeletal: Contracted upper extremities and word with stimulation Neuro: Has known cerebral palsy and has trach Skin: No rashes appreciated Psych: Unable to cooperate at this time Assessment & Plan Assessment/Plan (1) Sepsis: (2) Chronic respiratory failure with hypoxia: (3) Aspiration into airway: PLAN: Plan 42-year-old male with history of seizure disorder, cerebral palsy, chronic trach who presented to [facility] on with fever, shortness of breath, vomiting x1 day. Was found to have septic shock and was sent to the ICU and is now on pressors. #Septic shock secondary to aspiration pneumonia Had been observed vomiting with concerns for aspiration Fever greater than 105, tachypnea Patient was placed in the ICU and despite adequate fluids as well and required pressors, still on Levophed but is stabilized On IV Zosyn Cultures pending ICU consult #Acute nausea and vomiting likely secondary to #1 KUB was obtained to rule out bowel obstruction, nonspecific but no overt a bnormalities appreciated Continue Reglan #Chronic respiratory failure on chronic vent settings via tracheostomy Pulm on board Breathing treatments On his vent at present #Cerebral palsy with spastic quadriplegia Baclofen, gabapentin, Ativan #Seizure disorder Gabapentin, Ativan, phenobarb #Chronic dysphagia Status post PEG tube Tube feeds #DVT ppx: Heparin subcu Lucia Dillard MD Time spent in the patient's overall evaluation,decision-making process, review of diagnostic data, adjustment of management, discussion with other providers, nursing nursing and ancillary staff involved in patient's care documentation, 30 minutes
[2022-03-25] MEDS: Ipratropium/Albuterol Sulfate 3 ML AMPUL.NEB INHALATION ×2 (07:00→10:34)
--- NOTE | 2022-03-25 07:13 | CON.PCM.CC_ITS ---
Assessment & Plan Assessment/Plan (1) Chronic respiratory failure: QUALIFIERS: Respiratory failure complication: hypoxia and hypercapnia Qualified Code(s): J96.11 - Chronic respiratory failure with hypoxia; J96.12 - Chronic respiratory failure with hypercapnia (2) Sepsis: PLAN: Plan RECOMMENDATIONS: 1. Continue vent support with SIMV. Wean oxygen to keep saturations between 90 to 94% 2. Wean Levophed as tolerated 3. Continue Zosyn as appropriate coverage for fluoroquinolone resistant Pseudomonas. 4. Await cultures. Possible need for ID consult for home IV antibiotics 5. Continue aggressive bronchopulmonary hygiene 6. Continue nutritional support via G-tube. 7. Monitor fluid status closely. IMPRESSIONS: 1. Acute on chronic hypoxic respiratory failure secondary to septic shock secondary to probable gram-negative pneumonia Clinical suspicion for mucous plugging in the setting of pseudomonal pneumonia as precipitating etiology for acute presentation. Patient has had previous pseudomonal infections with resistance to ciprofloxacin and Levaquin. It appears to be a similar pseudomonal infection at this time. Patient back to regular vent settings now that vitals have normalized. Recommend continuing ventilatory support with SIMV per home regimen throughout the day and night. Continue aggressive bronchopulmonary hygiene should be maintained. Continue bronchodilator therapy as needed. Wean oxygen as tolerated tolerated for saturations greater than 90%. Mother is comfortable with this plan. 2. Cerebral palsy/spastic quadriplegia/seizure disorder/GERD/history of PE Complicates care, management, recovery and prognosis. TIME: 32 minutes of critical care time spent addressing patient's septic shock, respiratory failure, review of all data and collaboration with care team HPI Consult Data Date of Consult: 03/25/22 HPI Narrative HPI Narrative: KRISS MICHAEL is a 42 M, with past medical history listed below and well- known to me from previous visits, who presents to [facility] on 03/24/2022 secondary to tachypnea, tachycardia and fever. Patient does not provide history and mother was the primary informant. Patient reportedly developed a fever in the afternoon and had been noted to have increased secretions from his trach. There have been no changes in feeding. Urine output was consistent with baseline and patient had not reported any diarrhea. Patient does have multiple previous hospitalizations with pseudomonal bacteremia. In the ER, patient was noted to have a temperature of 102.1, tachycardic at 134 bpm and tachypneic at 36 breaths/min. Patient was on his mechanical ventilator, but required transient bagging. Laboratory work-up showed a white blood cell count of 7.5, hemoglobin of 11.5 and platelets of 141. Patient's bicarbonate was normal at 23 and renal function was at his baseline. Lactate was slightly elevated at 2.7. Chest x-ray showed some mild basilar atelectasis and elevated right hemidiaphragm, consistent with previous exams. Patient reportedly had episodes of emesis in the ER and some gastric contents were removed from the trach. Patient's temperature koffi to 104.5. Patient was admitted to the PCU for further evaluation. Since being on the PCU, patient developed hypotension that was not responsive to fluid boluses. Patient was subsequently transferred to the intensive care unit and initiated on Levophed. Since being in the intensive care unit, patient's fever has broken and hemodynamics are much improved. Patient is no longer tachypneic and is resting comfortably. Patient's mother at the bedside states he looks much better than he did previously. Patient's mother reported no other changes on review of systems. Review of systems otherwise negative from a constitutional, HEENT, respiratory, cardiovascular, GI, genitourinary, musculoskeletal, skin, neurologic, psychiatric and hematologic system unless stated above. [facility] Medical History Acute dyspnea Anemia in chronic illness Cerebral palsy Colostomy prolapse Debility Edema History of seizure disorder Iron deficiency anemia Nonrheumatic mitral valve prolapse Obesity Pseudomonas pneumonia Pulmonary embolism on left (06/14/19) Redundant colon Thrombocytopenia Tracheostomy in place Upper GI bleeding (04/2020) Home Medications phenobarbital 20 mg/5 mL (4 mg/mL) oral elixir 60 mg G-tube 5X/DAY pain 02/19/17 [History Last Taken 04/24/20 21:00] Lactobacillus acidophilus 1 cap G-tube DAILY gut health 02/04/18 [History Last Taken 04/24/20 09:00] metoclopramide HCl 5 mg/5 mL oral solution 5 mg feeding tube TID thrush 09/16/18 [History Last Taken 04/24/20 21:00] lorazepam 1 mg tablet 2 mg G-tube Q8 PRN Agitation 10/08/18 [History Last Taken 04/24/20 22:00] Cough Assist 1 dose .Route .MEDSUPPLY assist in clearing secretions 12/25/18 [History Last Taken Unknown] ferrous sulfate 15 mg iron (75 mg)/mL oral drops 75 mg G-tube DAILY supplement 12/25/18 [History Last Taken 04/24/20 16:00] oxygen concentrator 1 dose .Route .MEDSUPPLY second unit, 4 LPM cont all modalities 12/25/18 [History Last Taken Unknown] ondansetron HCl 4 mg tablet 5 ml feeding tube DAILY PRN Nausea 05/09/19 [History Last Taken Unknown] ascorbic acid (vitamin C) 500 mg/5 mL oral syrup 500 mg G-tube DAILY Check with primary doctor 08/04/19 [History Last Taken Unknown] gabapentin 250 mg/5 mL oral solution 500 mg G-tube 4X/DAY Check with primary doctor 09/26/19 [History Last Taken 04/25/20 06:00] albuterol sulfate 2.5 mg/3 mL (0.083 %) solution for nebulization 2.5 mg inhalation Q4H PRN Sob &/Or Wheezing 11/27/20 [History Last Taken Unknown] baclofen 5 mg/5 mL oral solution 20 mg G-tube Q6H Spasticity 11/27/20 [History Last Taken Unknown] esomeprazole magnesium 40 mg granules delayed release for susp (Nexium Packet) 40 mg G-tube BID Check with primary doctor 11/27/20 [History Last Taken Unknown] famotidine 20 mg tablet (Pepcid) 20 mg feeding tube LUNCH Check with primary doctor 11/27/20 [History Last Taken Unknown] lactose-reduced food with fiber 0.06 gram-1.2 kcal/mL oral liquid 1,000 ml G-tube DAILY Check with primary doctor 11/27/20 [History Last Taken Unknown] plecanatide 3 mg tablet 3 mg G-tube DAILY Check with primary doctor 11/27/20 [History Last Taken Unknown] simethicone 40 mg/0.6 mL oral drops,suspension 40 mg G-tube PRN PRN GAS 11/27/20 [History Last Taken Unknown] doxazosin 2 mg tablet 2 mg PO DAILY Check with primary doctor 11/30/21 [History Last Taken Unknown] cholecalciferol (vitamin D3) 10 mcg/mL (400 unit/mL) oral drops 50 mcg feeding tube DAILY vitiamin 03/24/22 [History Last Taken Unknown] guaifenesin 200 mg/5 mL oral liquid 200 mg feeding tube Q6H PRN Cough 03/24/22 [History Last Taken Unknown] Allergy/AdvReac Type Severity Reaction Status Date / Time cisapride monohydrate Allergy Rash Verified 03/24/22 17:08 [From Propulsid] house dust Allergy NEEDS Verified 03/24/22 17:08 FOLLOW-UP codeine AdvReac hallucinati Verified 03/24/22 17:08 ons metronidazole [From Flagyl] AdvReac Rash Verified 03/24/22 17:08 morphine AdvReac Hallucinati Verified 03/24/22 17:08 ons Family History Mother Hepatitis C Hypertension Father CAD (coronary artery disease) Atrial fibrillation Hypertension H/O heart artery stent Surgical History Colostomy in place Heel cord lengthening History of colostomy History of eye surgery History of gastrostomy tube placement History of open reduction and internal fixation (ORIF) procedure History of soft tissue release Status post insertion of intrathecal baclofen pump Social History household members: family housing: house current occupational status: disabled Smoking Status: Never smoker alcohol intake: never substance use type: does not use caffeine: No ROS ROS Narrative See HPI Physical Exam Const no apparent distress Constitutional Narrative: Middle-aged, quadriplegic male, appears comfortable and alert. General Appearance: cooperative and patient mechanically ventilated HEENT normocephalic, head/scalp atraumatic and moist oral mucous membranes Mouth: oral and palatal mucosa normal Eyes PERRL, EOMs intact bilaterally and conjunctivae normal Neck no lymphadenopathy and supple Neck Narrative: Tracheostomy site intact. General: tracheostomy present Lymph Lymphatic: no lymphadenopathy noted Chest inspection of chest normal Resp Resp Narrative: Baseline ventilator settings Auscultation: rhonchi right lower; Negative for rales or wheezes Cardio regular rate, regular rhythm, S1 normal heart sound, S2 normal heart sound, no murmurs, no rub, no gallops and no JVD GI normal to inspection, nondistended, normoactive bowel sounds, soft to palpation and non-tender GI Narrative: Stoma pink and moist. Inspection: GI tube present and ostomy present Extremity Extremity Narrative: Baseline contractures noted. General Extremity: clubbing and edema Skin no rashes or lesions noted Neuro Neuro Narrative: Baseline neurologic status with spastic quadriplegia. Psych Mood & Affect: flat affect Medical Records Data Attestation: I reviewed the patient's medical records Medical records narrative: Previous microbiology data showed Pseudomonas, resistant to fluoroquinolones, and multiple previous cultures. Home vent settings were verified. Lab / Micro Data Attestation: I reviewed the patient's lab results. Result Diagrams: 03/25/22 05:00 03/25/22 05:00 Labs: Laboratory Results - last 24 hr 03/24/22 17:40: WBC 7.5, RBC 4.25 L, Hgb 11.5 L, Hct 36.3 L, MCV 85.4, MCH 27.1, MCHC 31.7 L, RDW Std Deviation 43.3, RDW Coeff of Emilee 14.0, Plt Count 141 L, MPV 10.4, Immature Gran % (Auto) 0.100, Neut % (Auto) 79.9 H, Lymph % (Auto) 13.1 L, [place] % (Auto) 5.3, Eos % (Auto) 1.3, Baso % (Auto) 0.3, Absolute Neuts (auto) 6.0, Absolute Lymphs (auto) 0.99, Nucleated RBC % 0 03/24/22 17:40: Sodium 133 L, Potassium 3.8, Chloride 99, Carbon Dioxide 23.0, Anion Gap 11, BUN 10, Creatinine 0.45 L, Estim Creat Clear Calc 154.32, Est GFR (MDRD) Af Amer 267, Est GFR (MDRD) Non-Af 220, BUN/Creatinine Ratio 22.2 H, Glucose 145 H, Calcium 8.6 03/24/22 17:40: Lactic Acid 2.7 H* 03/24/22 17:40: Total Bilirubin 0.30, Direct Bilirubin 0.07, AST 22, ALT 20, Alkaline Phosphatase 137 H, Total Protein 8.3 H, Albumin 3.4, Globulin 4.9 H 03/24/22 20:50: Urine Color Yellow, Urine Clarity Clear, Urine pH 7.0, Ur Specific [place] 1.005, Urine Protein 30 H, Urine Glucose (UA) Normal, Urine Ketones 15 H, Urine Occult Blood 10 H, Urine Nitrite Negative, Urine Bilirubin Negative, Urine Urobilinogen Normal, Ur Leukocyte Esterase 25 H, Urine RBC 0-5 SEEN, Urine WBC 0-5 SEEN, Ur Squamous Epith Cells 0 SEEN, Urine Bacteria 0 SEEN, Urine Mucus 0 SEEN 03/24/22 22:50: Lactic Acid 2.9 H* 03/25/22 05:00: WBC 9.5, RBC 3.71 L, Hgb 10.1 L, Hct 31.5 L, MCV 84.9, MCH 27.2, MCHC 32.1, RDW Std Deviation 44.3 H, RDW Coeff of Emilee 14.3, Plt Count 142 L, MPV 9.8, Immature Gran % (Auto) 0.500, Neut % (Auto) 73.1 H, Lymph % (Auto) 13.4 L, [place] % (Auto) 12.8 H, Eos % (Auto) 0.1, Baso % (Auto) 0.1, Absolute Neuts (auto) 7.0, Absolute Lymphs (auto) 1.28, Nucleated RBC % 0 03/25/22 05:00: Sodium 139, Potassium 3.2 L, Chloride 106, Carbon Dioxide 24.0, Anion Gap 9, BUN 10, Creatinine 0.31 L, Estim Creat Clear Calc 350.36, Est GFR (MDRD) Af Amer 417, Est GFR (MDRD) Non-Af 345, BUN/Creatinine Ratio 32.7 H, Glucose 117 H, Calcium 7.6 L, Total Bilirubin 0.30, AST 32, ALT 30, Alkaline Phosphatase 111, Total Protein 6.9, Albumin 2.6 L, Globulin 4.3 H, Albumin/Globulin Ratio 0.6 L Micro: Microbiology 03/24/22 22:42 Mucosa - Nasopharyngeal Respiratory Panel (PCR) - Final 03/24/22 20:50 Nasal Secretion SARS-CoV-2 & FLU Antigen (Rapid) - Final Rhythm Strip Rhythm Strip: Sinus Tach Rate: 140 Ectopy: None Radiology Impression Chest X-Ray 03/24/22 17:42 IMPRESSION: Elevated right hemidiaphragm and mild basilar atelectasis Electronically Signed: Gerald Anne MD at 18:09 EST Reading Location ID and State: [facility] / [place] , Service support , KUB X-Ray 03/24/22 21:50 IMPRESSION: Nonspecific abdomen Electronically Signed: Gerald Anne MD at 22:32 EST , Charges/Coding Procedures Hospitalists Procedures: [id number] Critial Care 1st Hr
--- NOTE | 2022-03-25 07:22 | NURSING ---
Transport set up with [facility], ETA of 1100 given.
[2022-03-25] MEDS: Potassium Chloride 10mEq/100mL 10 MEQ/100 ML IV.SOLN. 100 MEQ IV BOLUS ×2 (08:17→09:46)
[2022-03-25] MEDS: 0.9% Normal Saline 1,000 ML 150 ML IV ×3 (08:28→21:54)
[2022-03-25 08:40] LABS: Lactic Acid 0.7 mmol/L (0.4-1.9)
--- NOTE | 2022-03-25 09:34 | CM.UR ---
Addendum entered by Misael Rm 03/25/22 15:08: Per Armani @ [facility], cost for full-electric hosp bed will be approx $150/month and it would need ordered, as there are no full-electic beds in stock. Call placed back to [facility] and spoke w/Cassie. She confirms cost is $50/mo for the upgrade to the full-electric from semi-electric. She states [employer] will cover 80% of the bed and [employer] will most likely cover a portion of the 20%, but she would need to run pt's insurance to verify total cost. Parents informed RE CM they had no preference of DME co. Script obtained from Dr Dillard for [facility] bed and referral sent to [facility] at this time via [employer]. F2F for medical necessity of bed to be sent to [facility], once available. Original Note: RN?CM?WET PAN MIXER?CM?to room to meet with parents for initial transition planning/care coordination?assessment.?Patient has cerebral palsy, is non-verbal, bedbound, and requires total care. RN?CM?introduced self and role at [facility].? Parents voice understanding and consent to?assessment?at this time.? Pt resting in bed in no distress at this time.? Care providers, pharmacy, and demographics verified/updated at this time. PCP: [facility] Specialists: Mariann, cardio; Bello pulm; Beatriz, ENT; Dania, GI; CORINA Chen [facility] GI surgeon Preferred Pharmacy: [facility]. Insurance: [employer]CR A/B, Mauro, CATHY Toth Prescription Benefit:?Yes Living Will/HPOA: Pt's parents are his legal guardians and paperwork is on file at [facility]. LNOK: Michael/Matteo Diaz, parents/guardians Living Arrangements: Pt lives with parents in 1 story home with ramp entrance. Pt has SN 6 days a month through [facility] and aides 7 days a week for 8-14 hrs/day thru [facility]. Parents also provide total care. Transportation: Pt uses W/C van or ambulance for transportation. DME: Pt has the following DME: pulse ox, shower chair, estefany, w/c, feeding pump, ceiling track, elevator, cough assist device, physiotherapy vest, home vent, and home oxygen 4L thru [facility], and [place] speaking device. Pt has a hospital bed that is about 15 yrs old. Parents state it does not always operate properly--sometimes they have difficulty w/HOB lowering and the siderails going up and down. They would like to ultimately get a specialty bed that has a scale in it, but they have checked around and have been unsuccessful in finding one. They state would at least like to get a new full-electric bed for pt when he returns home. Calls placed to [facility] and [facility]. They all only carry basic hospital bed (no scale). Parents made aware ins will cover for semi-electric bed @ 100%, but there would be a $50/mo [id number] cost for a full-electric bed for 10-13 months and then they would own the bed. Parents state want the full-electric bed and are agreeable to paying the $50/mo cost. Reviewed list of local DME co's and they deny having a preference and are agreeable to [facility]. HHC/SNF: [facility] is active with [facility] SN, OT, ST and [facility] order placed. Pt has not been to SNF in past. Pt has CM thru [facility] [place]. Parents state no concerns with pt going home at time of discharge. Pt is disabled. They voice no further concerns/needs. CM to follow for any further discharge planning/needs. Advised parents to ask for CM if any further questions/concerns/needs arise, voices understanding. Plan: Home w/Resumption of HHC, aides, and new hospital bed. Janice BAL RN CM
[2022-03-25] MEDS: Lansoprazole 15 MG Capsule.DR 30 MG NG (09:43)
[2022-03-25] MEDS: Cholecalciferol (VIT D3) 25 MCG TABLET (1,000 UNITS) 50 MCG GT (09:43)
[2022-03-25] MEDS: Doxazosin 1 MG Tablet 2 MG GT (09:43)
[2022-03-25] MEDS: Ascorbic Acid 500 MG Tablet GT (09:43)
[2022-03-25] MEDS: GABAPENTIN 250 MG/5 ML SOLUTION 500 MG GT ×4 (10:11→21:21)
[2022-03-25] MEDS: Potassium Chloride Oral Soln 20 MEQ/15 ML UDC 40 MEQ GT (10:11)
[2022-03-25] MEDS: PLECANATIDE 3 MG TABLET PO (13:58)
[2022-03-25] MEDS: Jevity 1.5 1,000 ML 50 ML GT (15:47)
--- NOTE | 2022-03-25 17:10 | NURSING ---
Pt's family stated that patient is scheduled to have tracheostomy changed at Dr. Henderson's office on Wednesday. They asked if it would be possible if Dr. Henderson came and did the procedure in the hospital while patient was here. This RN spoke with Dr. Monsalve about request who stated to call Dr. Henderson's office and ask staff about pt's request. This RN call Dr. Henderson's office who stated they would ask Dr. Henderson and call back either later today or tomorrow.
[2022-03-25] MEDS: Albuterol 2.5 MG/3 ML VIAL.NEB. INHALATION (22:24)
[2022-03-26] VITALS (43 sets, daily range): BP systolic 91–145; BP diastolic 41–119; PULSE 75–125; RESP 18–32; TEMP 36.9–37.8; O2SAT 90–99
[2022-03-26] MEDS: BACLOFEN 5 MG/ML 20 MG PO ×5 (00:31→23:59)
[2022-03-26 04:45] LABS: Absolute Lymphocyte Count 1.86 X10^3/uL (0.83-4.51); Absolute Neutrophil Count 3.1 X10^3/uL (2.0-7.7); Basophil# 0.01 X10^3/uL; Basophil% 0.2 % (0-1); Eosinophil# 0.09 X10^3/uL; Eosinophils% 1.5 % (0-5); Hemoglobin 9.3 g/dL (13.0-16.5); Lymphocyte # 1.86 X10^3/ul (0.83-4.51); Lymphocyte % 31.8 % (19-41); Monocyte# 0.72 X10^3/uL; Monocyte% 12.3 % (0-10); NRBC Flagged by Analyzer 0 % (0-5); Neutrophil # 3.14 X10^3/uL (2.7-7.7); Neutrophil % 53.9 % (47-70); Platelet Count 133 K/mm3 (150-450); RBC Distribution Width CV 14.6 % (11.6-14.6); RBC Distribution Width SD 46.5 fl (35.1-43.9); Red Blood Count 3.45 M/mm3 (4.6-6.2); White Blood Count 5.8 K/mm3 (4.4-11.0)
[2022-03-26] MEDS: 0.9% Normal Saline 1,000 ML 150 ML IV ×3 (05:02→18:12)
[2022-03-26 05:39] LABS: ALB/GLOB Ratio 0.6 RATIO (0.9-2.4); AST(SGOT) 24 U/L (15-37); Alanine Aminotransfer ALT/SGPT 28 U/L (16-61); Albumin, Serum 2.4 g/dL (3.2-5.0); Alkaline Phosphatase 95 U/L (45-117); Anion Gap 5 (5-15); BUN 4 mg/dL (7-18); BUN/Creat Ratio 17.8 RATIO (10-20); Calcium,Total 7.5 mg/dL (8.5-10.1); Chloride 115 mmol/L (98-107); Creatinine, Serum 0.22 mg/dL (0.70-1.30); EST Glomerular Filtration Rate 492 mL/min (>60); Est Glom Filt Rate - Afr Amer 595 mL/min (>60); Globulin 4.3 g/dL (2.2-4.2); Glucose 107 mg/dL (74-106); Potassium 3.3 mmol/L (3.5-5.1); Protein, Total 6.7 g/dL (6.4-8.2); Sodium Level 143 mmol/L (136-145)
[2022-03-26] MEDS: Heparin Injection (Vial) 5,000 UNIT/ML VIAL 5000 UNIT SC ×3 (06:28→21:26)
[2022-03-26] MEDS: Metoclopramide 10 MG/10 ML UDC 5 MG GT ×3 (06:28→21:24)
[2022-03-26] MEDS: Phenobarbital 20 MG/5 ML UDC 60 MG GT ×2 (06:36→21:40)
--- NOTE | 2022-03-26 07:01 | PN.CC_ITS ---
Assessment & Plan Assessment/Plan (1) Chronic respiratory failure: QUALIFIERS: Respiratory failure complication: hypoxia and hypercapnia Qualified Code(s): J96.11 - Chronic respiratory failure with hypoxia; J96.12 - Chronic respiratory failure with hypercapnia (2) Sepsis: PLAN: Plan RECOMMENDATIONS: 1. Continue vent support with SIMV. Wean oxygen to keep saturations between 90 to 94% 2. Wean Levophed as tolerated 3. Continue Zosyn as appropriate coverage for fluoroquinolone resistant Pseudomonas. 4. Await cultures. Possible need for ID consult for home IV antibiotics 5. Continue aggressive bronchopulmonary hygiene 6. Continue nutritional support via G-tube. 7. Monitor fluid status closely. IMPRESSIONS: 1. Acute on chronic hypoxic respiratory failure secondary to septic shock secondary to probable gram-negative pneumonia Clinical suspicion for mucous plugging in the setting of pseudomonal pneumonia as precipitating etiology for acute presentation. Patient has had previous pseudomonal infections with resistance to ciprofloxacin and Levaquin. It appears to be a similar pseudomonal infection at this time and sputum is growing GNR. Patient will need aggressive pulmonary toileting. Patient back to regular vent settings now that vitals have normalized. Recommend continuing ventilatory support with SIMV per home regimen throughout the day and night. Continue bronchodilator therapy as needed. Wean oxygen as tolerated for saturations greater than 90%. Mother is comfortable with this plan. 2. Cerebral palsy/spastic quadriplegia/seizure disorder/GERD/history of PE Complicates care, management, recovery and prognosis. 3. Recurrent pseudomonal sepsis Defer to primary service on whether infectious disease should be involved. Unclear if patient may benefit from aerosolized tobramycin intermittently at home to avoid repeat sepsis. TIME: 31 minutes of critical care time spent addressing patient's septic shock, respiratory failure, review of all data and collaboration with care team Subjective Subjective Patient did okay overnight. Patient did not sleep much over the evening, but was sleeping much of the day yesterday. Patient's mother and nursing have reported copious endotracheal secretions requiring changing of the tubing. Patient does have a strong cough. Objective Data Objective Data Vital Signs: Vital Signs Temp Pulse Resp BP Pulse Ox O2 Del Method O2 Flow Rate 37.1 C 79 18 131/84 H 93 Mechanical Ventilator 5 03/26/22 06:00 03/26/22 06:00 03/26/22 06:00 03/26/22 06:00 03/26/22 06:00 03/26/22 06:00 03/26/22 06:00 Oxygen Flow Rate (L/min) 5 Oxygen Delivery Method Mechanical Ventilator Weight: 82.1 kg Body Mass Index (BMI) 33.8 Intake & Output: Intake and Output for Last 24 Hours 03/24/22 03/25/22 03/26/22 23:59 23:59 23:59 Intake Total 650 / 650 4651.07 / 4703.90 1209.28 / 1209.28 Output Total 550 / 550 Balance 650 / 650 4101.07 / 4153.90 1209.28 / 1209.28 Lab / Micro Data Attestation: I reviewed the patient's lab results. Lab results narrative: Patient is growing gram-negative rods in the sputum. Result Diagrams: 03/26/22 04:34 03/26/22 04:34 Labs: Laboratory Results - last 24 hr 03/25/22 08:00: Lactic Acid 0.7 03/26/22 04:34: WBC 5.8, RBC 3.45 L, Hgb 9.3 L, Hct 30.0 L, MCV 87.0, MCH 27.0, MCHC 31.0 L, RDW Std Deviation 46.5 H, RDW Coeff of Emilee 14.6, Plt Count 133 L, MPV 10.0, Immature Gran % (Auto) 0.300, Neut % (Auto) 53.9, Lymph % (Auto) 31.8, [place] % (Auto) 12.3 H, Eos % (Auto) 1.5, Baso % (Auto) 0.2, Absolute Neuts (auto) 3.1, Absolute Lymphs (auto) 1.86, Nucleated RBC % 0 03/26/22 04:34: Sodium 143, Potassium 3.3 L, Chloride 115 H, Carbon Dioxide 23.0, Anion Gap 5, BUN 4 L, Creatinine 0.22 L, Estim Creat Clear Calc 518.31, Est GFR (MDRD) Af Amer 595, Est GFR (MDRD) Non-Af 492, BUN/Creatinine Ratio 17.8, Glucose 107 H, Calcium 7.5 L, Total Bilirubin 0.40, AST 24, ALT 28, Alkaline Phosphatase 95, Total Protein 6.7, Albumin 2.4 L, Globulin 4.3 H, Albumin/Globulin Ratio 0.6 L Micro: Microbiology 03/24/22 19:13 Sputum, Tracheal Aspirate Gram Stain - Final 03/24/22 19:13 Sputum, Tracheal Aspirate Respiratory Culture - Preliminary Gram negative lyn 03/24/22 22:42 Mucosa - Nasopharyngeal Respiratory Panel (PCR) - Final 03/24/22 20:50 Nasal Secretion SARS-CoV-2 & FLU Antigen (Rapid) - Final Rhythm Strip Rhythm Strip: Sinus Rhythm Rate: 84 Ectopy: None Physical Exam Const Constitutional Narrative: Middle-aged, quadriplegic male, appears comfortable and alert. General Appearance: cooperative, in distress Positive for mild (Frequent coughing) and patient mechanically ventilated HEENT normocephalic, head/scalp atraumatic and moist oral mucous membranes Mouth: oral and palatal mucosa normal Eyes PERRL, EOMs intact bilaterally and conjunctivae normal Neck no lymphadenopathy and supple Neck Narrative: Tracheostomy site intact. General: tracheostomy present Lymph Lymphatic: no lymphadenopathy noted Chest inspection of chest normal Resp Resp Narrative: Baseline ventilator settings Auscultation: rhonchi throughout (Improves with coughing and suctioning); Negative for rales or wheezes Cardio regular rate, regular rhythm, S1 normal heart sound, S2 normal heart sound, no murmurs, no rub, no gallops and no JVD GI normal to inspection, nondistended, normoactive bowel sounds, soft to palpation and non-tender GI Narrative: Stoma pink and moist. Inspection: GI tube present and ostomy present Extremity Extremity Narrative: Baseline contractures noted. General Extremity: clubbing and edema Skin no rashes or lesions noted Neuro Neuro Narrative: Baseline neurologic status with spastic quadriplegia. Psych Mood & Affect: flat affect Charges/Coding Procedures Hospitalists Procedures: 88982 Critial Care 1st Hr
--- NOTE | 2022-03-26 07:27 | PCM.PN.HOSP ---
Subjective Subjective Patient seen with mother at bedside, blood pressure improving and is off pressors at this time, is mildly tachycardic and appears to have some abdominal gas emesis something has been a problem for him in the past as well mother requests Maddie Objective Data Objective Data Vital Signs: Vital Signs Temp Pulse Resp BP Pulse Ox O2 Del Method O2 Flow Rate 98.7 F 103 H 20 H 121/72 H 93 Mechanical Ventilator 5 03/26/22 06:00 03/26/22 07:00 03/26/22 07:00 03/26/22 07:00 03/26/22 07:00 03/26/22 07:00 03/26/22 07:00 Oxygen Flow Rate (L/min) 5 Oxygen Delivery Method Mechanical Ventilator Weight: 82.1 kg Body Mass Index (BMI) 33.8 Intake & Output: Intake and Output for Last 24 Hours 03/24/22 03/25/22 03/26/22 23:59 23:59 23:59 Intake Total 650 / 650 4651.07 / 4703.90 1218.16 / 1218.16 Output Total 550 / 550 Balance 650 / 650 4101.07 / 4153.90 1218.16 / 1218.16 Lab / Micro Data Result Diagrams: 03/26/22 04:34 03/26/22 04:34 Labs: Laboratory Results - last 24 hr 03/25/22 08:00: Lactic Acid 0.7 03/26/22 04:34: WBC 5.8, RBC 3.45 L, Hgb 9.3 L, Hct 30.0 L, MCV 87.0, MCH 27.0, MCHC 31.0 L, RDW Std Deviation 46.5 H, RDW Coeff of Emilee 14.6, Plt Count 133 L, MPV 10.0, Immature Gran % (Auto) 0.300, Neut % (Auto) 53.9, Lymph % (Auto) 31.8, [place] % (Auto) 12.3 H, Eos % (Auto) 1.5, Baso % (Auto) 0.2, Absolute Neuts (auto) 3.1, Absolute Lymphs (auto) 1.86, Nucleated RBC % 0 03/26/22 04:34: Sodium 143, Potassium 3.3 L, Chloride 115 H, Carbon Dioxide 23.0, Anion Gap 5, BUN 4 L, Creatinine 0.22 L, Estim Creat Clear Calc 518.31, Est GFR (MDRD) Af Amer 595, Est GFR (MDRD) Non-Af 492, BUN/Creatinine Ratio 17.8, Glucose 107 H, Calcium 7.5 L, Total Bilirubin 0.40, AST 24, ALT 28, Alkaline Phosphatase 95, Total Protein 6.7, Albumin 2.4 L, Globulin 4.3 H, Albumin/Globulin Ratio 0.6 L Micro: Microbiology 03/24/22 19:13 Sputum, Tracheal Aspirate Gram Stain - Final 03/24/22 19:13 Sputum, Tracheal Aspirate Respiratory Culture - Preliminary Gram negative lyn 03/24/22 22:42 Mucosa - Nasopharyngeal Respiratory Panel (PCR) - Final 03/24/22 20:50 Nasal Secretion SARS-CoV-2 & FLU Antigen (Rapid) - Final Rhythm Strip Rhythm Strip: Sinus Rhythm Rate: 84 Ectopy: None Physical Exam Narrative General: Laying in bed, appears slightly uncomfortable HEENT: Tongue protuberant Eyes: Opens eyes spontaneously Neck: Trach in place Respiratory: Somewhat coarse bilaterally with some transmitted upper or air sounds and a few scattered wheezes Cardiovascular: Regular rhythm, slightly tachycardic GI: Slightly distended and this is variable, seems to be gaseous in nature, bowel herniated into colostomy reportedly chronic per mother Extremities: No edema, contractures noted Musculoskeletal: Contracted upper extremities Neuro: Has known cerebral palsy and has trach Skin: No rashes appreciated Psych: Unable to cooperate at this time Assessment & Plan Assessment/Plan (1) Sepsis: (2) Chronic respiratory failure with hypoxia: (3) Aspiration into airway: PLAN: Plan 42-year-old male with history of seizure disorder, cerebral palsy, chronic trach who presented to [facility] on with fever, shortness of breath, vomiting x1 day. Was found to have septic shock and was sent to the ICU and is now on pressors. #Septic shock secondary to aspiration pneumonia Had been observed vomiting with concerns for aspiration Fever greater than 105, tachypnea Patient was placed in the ICU and despite adequate fluids as well and required pressors, still on Levophed but is stabilized On IV Zosyn Cultures pending ICU consult 03/26: Remains on fluids and Zosyn. BP improving. Lactic acid had resolved. Sputum culture growing gram-negative rods. Blood cultures pending. Reviewed ICU note, will involve infectious disease especially given recurrent pseudomonal infections and present polymicrobial growth. Continue to clear secretions which have remained thick and copious. #Acute nausea and vomiting likely secondary to #1 KUB was obtained to rule out bowel obstruction, nonspecific but no overt abnormalities appreciated Continue Reglan 2/2: Not vomiting but is slightly distended and somewhat gaseous which is happened on previous admissions as well, mother reports [employer] often works, will add this #Chronic respiratory failure on chronic vent settings via tracheostomy Pulm on board Breathing treatments On his vent at present 2/2: Growing gram negative and sputum, continues to be on home vent, pulm/ICU on board, continue Zosyn and clearing secretions which continue to be thick and copious #Cerebral palsy with spastic quadriplegia Baclofen, gabapentin, Ativan #Seizure disorder Gabapentin, Ativan, phenobarb #Chronic dysphagia Status post PEG tube Tube feeds, presently titrating #DVT ppx: Heparin subcu Lucia Dillard MD Time spent in the patient's overall evaluation,decision-making process, review of diagnostic data, adjustment of management, discussion with other providers, nursing nursing and ancillary staff involved in patient's care documentation, 30 minutes Charges/Coding Visit Charges Inpatient E&M: 42679 Subs Hosp L2
[2022-03-26] MEDS: Albuterol 2.5 MG/3 ML VIAL.NEB. INHALATION (07:41)
[2022-03-26] MEDS: Doxazosin 1 MG Tablet 2 MG GT (09:29)
[2022-03-26] MEDS: Ascorbic Acid 500 MG Tablet GT (09:29)
[2022-03-26] MEDS: Cholecalciferol (VIT D3) 25 MCG TABLET (1,000 UNITS) 50 MCG GT (09:29)
[2022-03-26] MEDS: Potassium Chloride Oral Soln 20 MEQ/15 ML UDC 40 MEQ GT (09:29)
[2022-03-26] MEDS: PLECANATIDE 3 MG TABLET PO (09:30)
[2022-03-26] MEDS: GABAPENTIN 250 MG/5 ML SOLUTION 500 MG GT ×4 (09:42→21:25)
[2022-03-26] MEDS: Acetaminophen 650 MG/20 ML UDC 500 MG GT ×2 (09:51→21:25)
[2022-03-26] MEDS: Simethicone 40MG/0.6ML Bottle 40 MG GT (11:14)
[2022-03-26] MEDS: guaiFENesin 10 ML UDC (200MG/10ML) GT (11:24)
--- NOTE | 2022-03-26 12:55 | RAD_ITS ---
STUDY: X-RAY CHEST REASON FOR EXAM: Male, 42 years old. SOB TECHNIQUE: Single AP portable view of the chest. COMPARISON: Comparison is made with prior study dated 03/24/2022. FINDINGS: A tracheostomy tube is in place. The tip is at 3.1 cm proximal to clark. A right-sided Port-A-Cath is seen with the tip in the right atrium. EKG electrodes are seen. Stable elevation of the right hemidiaphragm. Mild increased markings in the left infrahilar region of the left lung suggestive of either atelectasis and/or infiltrate. There is no demonstrated pleural abnormality. Normal size heart. Normal mediastinum and rachelle. Normal visualized pulmonary arteries. Normal visualized aortic arch and descending thoracic aorta. Normal visualized thoracic spine. There is degenerative osteoarthritis of the bilateral shoulders. There is no demonstrated abnormality of the visualized soft tissue structures of the upper abdomen. RAD/Chest 1 View (Portable) IMPRESSION: Mild increased markings in the posterior medial segment of the left lower lobe suggestive of atelectasis and/or early infiltrate. Follow-up is recommended. Electronically Signed: Matti Greer MD at 13:14 EST ,
[2022-03-26] MEDS: Jevity 1.5 1,000 ML 30 ML GT (16:47)
--- NOTE | 2022-03-26 22:48 | NURSING ---
Patient with large emesis. Patient was sitting upright in bed at the time, lung sound unchanged and nothing came from trach when suctioned immediately after. Pulse ox remains stable at 96%. Tube Feeding stopped and disconnected, Ko tube flushed and clamped. Patient bathed, linens changed, colostomy emptied and mouth care performed. patient tolerated without further complication.
[2022-03-27] VITALS (19 sets, daily range): BP systolic 105–168; BP diastolic 56–108; PULSE 72–105; RESP 16–26; TEMP 36.8–37.6; O2SAT 90–98
[2022-03-27] MEDS: 0.9% Normal Saline 1,000 ML 150 ML IV (00:57)
[2022-03-27 04:11] LABS: Absolute Lymphocyte Count 2.26 X10^3/uL (0.83-4.51); Eosinophil# 0.08 X10^3/uL; Eosinophils% 1.6 % (0-5); Hematocrit 28.5 % (40-54); Hemoglobin 8.9 g/dL (13.0-16.5); Lymphocyte # 2.26 X10^3/ul (0.83-4.51); Lymphocyte % 45.5 % (19-41); Mean Corp Hgb Conc 31.2 g/dL (32-36); Mean Corpuscular Hgb 26.7 pg (27.0-32.0); Mean Corpuscular Volume 85.6 fL (80-94); Mean Platelet Vol. 10.2 fl (6.2-12.0); Monocyte# 0.57 X10^3/uL; Monocyte% 11.5 % (0-10); NRBC Flagged by Analyzer 0 % (0-5); Neutrophil # 2.04 X10^3/uL (2.7-7.7); Platelet Count 145 K/mm3 (150-450); RBC Distribution Width CV 14.3 % (11.6-14.6); RBC Distribution Width SD 45.3 fl (35.1-43.9); Red Blood Count 3.33 M/mm3 (4.6-6.2)
[2022-03-27 04:26] LABS: Anion Gap 8 (5-15); BUN 2 mg/dL (7-18); BUN/Creat Ratio 8.7 RATIO (10-20); Calcium,Total 7.7 mg/dL (8.5-10.1); Chloride 112 mmol/L (98-107); Creatinine, Serum 0.23 mg/dL (0.70-1.30); EST Glomerular Filtration Rate 482 mL/min (>60); Est Glom Filt Rate - Afr Amer 583 mL/min (>60); Glucose 95 mg/dL (74-106); Potassium 2.8 mmol/L (3.5-5.1); Sodium Level 143 mmol/L (136-145)
[2022-03-27] MEDS: Heparin Injection (Vial) 5,000 UNIT/ML VIAL 5000 UNIT SC ×3 (05:11→20:19)
[2022-03-27] MEDS: Metoclopramide 10 MG/10 ML UDC 5 MG GT ×3 (05:11→20:19)
[2022-03-27] MEDS: BACLOFEN 5 MG/ML 20 MG PO ×4 (05:11→23:16)
[2022-03-27] MEDS: Potassium Chloride Oral Soln 20 MEQ/15 ML UDC 40 MEQ GT ×3 (06:22→20:20)
--- NOTE | 2022-03-27 07:30 | PCM.PN.INT ---
Assessment & Plan Assessment/Plan (1) Chronic respiratory failure: QUALIFIERS: Respiratory failure complication: hypoxia and hypercapnia Qualified Code(s): J96.11 - Chronic respiratory failure with hypoxia; J96.12 - Chronic respiratory failure with hypercapnia (2) Sepsis: PLAN: Plan RECOMMENDATIONS: 1. Continue vent support with SIMV. Wean oxygen to keep saturations between 90 to 94% 2. Possibly wean antibiotics in the next 24 hours if Pseudomonas does not grow 3. Aggressive pulmonary toileting 4. Await cultures. Possible need for ID consult for home IV antibiotics 5. Likely okay to leave the intensive care unit 6. Continue nutritional support via G-tube. 7. Monitor fluid status closely. IMPRESSIONS: 1. Acute on chronic hypoxic respiratory failure secondary to septic shock secondary to probable gram-negative pneumonia Clinical suspicion for mucous plugging in the setting of pseudomonal pneumonia as precipitating etiology for acute presentation. Patient has had previous pseudomonal infections with resistance to ciprofloxacin and Levaquin. Patient is now growing Proteus that is relatively sensitive. Patient will need aggressive pulmonary toileting. Patient back to regular vent settings now that vitals have normalized. Recommend continuing ventilatory support with SIMV per home regimen throughout the day and night. Continue bronchodilator therapy as needed. Wean oxygen as tolerated for saturations greater than 90%. Mother is comfortable with this plan. 2. Cerebral palsy/spastic quadriplegia/seizure disorder/GERD/history of PE Complicates care, management, recovery and prognosis. 3. Recurrent pseudomonal sepsis Defer to primary service on whether infectious disease should be involved. Unclear if patient may benefit from aerosolized tobramycin intermittently at home to avoid repeat sepsis. 4. Abdominal distention Unclear etiology. X-ray shows significant gas, but no obvious obstruction. Patient is having ostomy output. Subjective Subjective Patient did okay overnight. Patient did have an emesis and tube feeds had to be stopped. Patient continues to have significant coughing, but secretions reportedly are slowly improving Objective Data Objective Data Vital Signs: Vital Signs Temp Pulse Resp BP Pulse Ox O2 Del Method O2 Flow Rate 37.4 C H 86 25 H 116/75 94 Mechanical Ventilator 6 03/27/22 06:00 03/27/22 06:00 03/27/22 06:00 03/27/22 06:00 03/27/22 06:00 03/27/22 06:00 03/27/22 06:00 Oxygen Flow Rate (L/min) 6 Oxygen Delivery Method Mechanical Ventilator Weight: 79.6 kg Body Mass Index (BMI) 33.8 Intake & Output: Intake and Output for Last 24 Hours 03/25/22 03/26/22 03/27/22 23:59 23:59 23:59 Intake Total 4651.07 / 4703.90 5150.00 / 5275.00 1300 / 1300 Output Total 550 / 550 650 / 650 150 / 150 Balance 4101.07 / 4153.90 4500.00 / 4625.00 1150 / 1150 Lab / Micro Data Attestation: I reviewed the patient's lab results. Result Diagrams: 03/27/22 03:55 03/27/22 03:55 Labs: Laboratory Results - last 24 hr 03/27/22 03:55: WBC 5.0, RBC 3.33 L, Hgb 8.9 L, Hct 28.5 L, MCV 85.6, MCH 26.7 L, MCHC 31.2 L, RDW Std Deviation 45.3 H, RDW Coeff of Emilee 14.3, Plt Count 145 L, MPV 10.2, Immature Gran % (Auto) 0.400, Neut % (Auto) 41.0 L, Lymph % (Auto) 45.5 H, [place] % (Auto) 11.5 H, Eos % (Auto) 1.6, Baso % (Auto) 0.0, Absolute Neuts (auto) 2.0, Absolute Lymphs (auto) 2.26, Nucleated RBC % 0 03/27/22 03:55: Sodium 143, Potassium 2.8 L, Chloride 112 H, Carbon Dioxide 23.0, Anion Gap 8, BUN 2 L, Creatinine 0.23 L, Estim Creat Clear Calc 495.77, Est GFR (MDRD) Af Amer 583, Est GFR (MDRD) Non-Af 482, BUN/Creatinine Ratio 8.7 L, Glucose 95, Calcium 7.7 L Micro: Microbiology 03/24/22 19:13 Sputum, Tracheal Aspirate Gram Stain - Final 03/24/22 19:13 Sputum, Tracheal Aspirate Respiratory Culture - Preliminary Proteus mirabilis Streptococcus group B 03/24/22 22:42 Mucosa - Nasopharyngeal Respiratory Panel (PCR) - Final 03/24/22 20:50 Nasal Secretion SARS-CoV-2 & FLU Antigen (Rapid) - Final Radiography Diagnostic Testing: Radiology Impression Chest X-Ray 03/26/22 12:55 IMPRESSION: Mild increased markings in the posterior medial segment of the left lower lobe suggestive of atelectasis and/or early infiltrate. Follow-up is recommended. Electronically Signed: Matti Greer MD at 13:14 EST , Rhythm Strip Rhythm Strip: Sinus Rhythm Rate: 84 Ectopy: None Physical Exam Const no apparent distress Constitutional Narrative: Middle-aged, quadriplegic male, appears comfortable and alert. General Appearance: cooperative, in distress Positive for mild (Frequent coughing) and patient mechanically ventilated HEENT normocephalic, head/scalp atraumatic and moist oral mucous membranes HEENT Narrative: Mild scleral injection noted Eyes PERRL and EOMs intact bilaterally Neck no lymphadenopathy and supple Neck Narrative: Tracheostomy site intact. General: tracheostomy present Lymph Lymphatic: no lymphadenopathy noted Chest inspection of chest normal Resp Resp Narrative: Baseline ventilator settings Auscultation: rhonchi throughout (Improves with coughing and suctioning); Negative for rales or wheezes Cardio regular rate, regular rhythm, S1 normal heart sound, S2 normal heart sound, no murmurs, no rub, no gallops and no JVD GI soft to palpation and non-tender GI Narrative: Stoma pink and moist. Inspection: abdominal distention, GI tube present and ostomy present Extremity Extremity Narrative: Baseline contractures noted. General Extremity: clubbing and edema Skin no rashes or lesions noted Neuro Neuro Narrative: Baseline neurologic status with spastic quadriplegia. Psych Mood & Affect: flat affect Charges/Coding Visit Charges Inpatient E&M: 71754 Subs Hosp L3
--- NOTE | 2022-03-27 07:35 | PCM.PN.HOSP ---
Subjective Subjective Heart sound better this morning, did vomit yesterday however and abdomen is still somewhat distended, tube feeds on hold Objective Data Objective Data Vital Signs: Vital Signs Temp Pulse Resp BP Pulse Ox O2 Del Method O2 Flow Rate 99.4 F H 86 25 H 116/75 94 Mechanical Ventilator 6 03/27/22 06:00 03/27/22 06:00 03/27/22 06:00 03/27/22 06:00 03/27/22 06:00 03/27/22 06:00 03/27/22 06:00 Oxygen Flow Rate (L/min) 6 Oxygen Delivery Method Mechanical Ventilator Weight: 79.6 kg Body Mass Index (BMI) 33.8 Intake & Output: Intake and Output for Last 24 Hours 03/25/22 03/26/22 03/27/22 23:59 23:59 23:59 Intake Total 4651.07 / 4703.90 5150.00 / 5275.00 1300 / 1300 Output Total 550 / 550 650 / 650 150 / 150 Balance 4101.07 / 4153.90 4500.00 / 4625.00 1150 / 1150 Lab / Micro Data Result Diagrams: 03/27/22 03:55 03/27/22 03:55 Labs: Laboratory Results - last 24 hr 03/27/22 03:55: WBC 5.0, RBC 3.33 L, Hgb 8.9 L, Hct 28.5 L, MCV 85.6, MCH 26.7 L, MCHC 31.2 L, RDW Std Deviation 45.3 H, RDW Coeff of Emilee 14.3, Plt Count 145 L, MPV 10.2, Immature Gran % (Auto) 0.400, Neut % (Auto) 41.0 L, Lymph % (Auto) 45.5 H, [place] % (Auto) 11.5 H, Eos % (Auto) 1.6, Baso % (Auto) 0.0, Absolute Neuts (auto) 2.0, Absolute Lymphs (auto) 2.26, Nucleated RBC % 0 03/27/22 03:55: Sodium 143, Potassium 2.8 L, Chloride 112 H, Carbon Dioxide 23.0, Anion Gap 8, BUN 2 L, Creatinine 0.23 L, Estim Creat Clear Calc 495.77, Est GFR (MDRD) Af Amer 583, Est GFR (MDRD) Non-Af 482, BUN/Creatinine Ratio 8.7 L, Glucose 95, Calcium 7.7 L Micro: Microbiology 03/24/22 19:13 Sputum, Tracheal Aspirate Gram Stain - Final 03/24/22 19:13 Sputum, Tracheal Aspirate Respiratory Culture - Preliminary Proteus mirabilis Streptococcus group B 03/24/22 22:42 Mucosa - Nasopharyngeal Respiratory Panel (PCR) - Final 03/24/22 20:50 Nasal Secretion SARS-CoV-2 & FLU Antigen (Rapid) - Final Radiography Diagnostic Testing: Radiology Impression Chest X-Ray 03/26/22 12:55 IMPRESSION: Mild increased markings in the posterior medial segment of the left lower lobe suggestive of atelectasis and/or early infiltrate. Follow-up is recommended. Electronically Signed: Matti Greer MD at 13:14 EST Reading Location ID and State: [facility] / [place] , Service support , Rhythm Strip Rhythm Strip: Sinus Rhythm Rate: 84 Ectopy: None Physical Exam Narrative General: Laying in bed, no acute distress HEENT: Tongue protuberant Eyes: Opens eyes spontaneously Neck: Trach in place Respiratory: Somewhat coarse bilaterally with some transmitted upper or air sounds Cardiovascular: Regular rate regular rhythm GI: Firm and and distended Extremities: No edema, contractures noted Musculoskeletal: Contracted upper extremities Neuro: Has known cerebral palsy and has trach Skin: No rashes appreciated Psych: Unable to cooperate at this time Assessment & Plan Assessment/Plan (1) Sepsis: (2) Chronic respiratory failure with hypoxia: (3) Aspiration into airway: PLAN: Plan 42-year-old male with history of seizure disorder, cerebral palsy, chronic trach who presented to [facility] on with fever, shortness of breath, vomiting x1 day. Was found to have septic shock and was sent to the ICU and is now on pressors. #Septic shock secondary to aspiration pneumonia Had been observed vomiting with concerns for aspiration Fever greater than 105, tachypnea Patient was placed in the ICU and despite adequate fluids as well and required pressors, still on Levophed but is stabilized On IV Zosyn Cultures pending ICU consult 03/26: Remains on fluids and Zosyn. BP improving. Lactic acid had resolved. Sputum culture growing gram-negative rods. Blood cultures pending. Reviewed ICU note, will involve infectious disease especially given recurrent pseudomonal infections and present polymicrobial growth. Continue to clear secretions which have remained thick and copious. 2/3: Remains on Zosyn, await ID recommendations, at present is growing Proteus mirabilis and Streptococcus group B, culture still preliminary, blood culture still pending #Acute nausea and vomiting likely secondary to #1 KUB was obtained to rule out bowel obstruction, nonspecific but no overt abnormalities appreciated Continue Reglan 2/2: Not vomiting but is slightly distended and somewhat gaseous which is happened on previous admissions as well, mother reports [employer] often works, will add this 2/3: Tube feeds on hold given episode of emesis yesterday, abdomen firm, repeat KUB #Chronic respiratory failure on chronic vent settings via tracheostomy Pulm on board Breathing treatments On his vent at present 2/2: Growing gram negative and sputum, continues to be on home vent, pulm/ICU on board, continue Zosyn and clearing secretions which continue to be thick and copious 2/3: Slowly improving secretions, continue vent, continue Zosyn, ID consult pending #Cerebral palsy with spastic quadriplegia Baclofen, gabapentin, Ativan #Seizure disorder Gabapentin, Ativan, phenobarb #Chronic dysphagia Status post PEG tube Tube feeds, presently titrating 2/3: Tube feeds on hold due to vomiting #DVT ppx: Heparin subcu Lucia Dillard MD Time spent in the patient's overall evaluation,decision-making process, review of diagnostic data, adjustment of management, discussion with other providers, nursing nursing and ancillary staff involved in patient's care documentation, 30 minutes Charges/Coding Visit Charges Inpatient E&M: 66952 Subs Hosp L2
--- NOTE | 2022-03-27 07:38 | RAD_ITS ---
HISTORY: Abdominal distention and vomiting. TECHNIQUE: XR Abdomen 1 View. COMPARISON: 03/24/2022. FINDINGS: BOWEL GAS PATTERN: Percutaneous gastrostomy tube in the left upper quadrant. Gaseous distention of stomach and colon again seen. Left lower quadrant ostomy. BONES: Lumbar levoscoliosis noted. SOFT TISSUES: Catheter segment in the right lower quadrant. RAD/Abdomen Single View (Portable) IMPRESSION: Persistent gaseous distention of bowel. Electronically Signed: Jesenia Whitt MD at 8:03 EST ,
[2022-03-27] MEDS: Simethicone 40MG/0.6ML Bottle 40 MG GT (09:24)
[2022-03-27] MEDS: Cholecalciferol (VIT D3) 25 MCG TABLET (1,000 UNITS) 50 MCG GT (09:25)
[2022-03-27] MEDS: Doxazosin 1 MG Tablet 2 MG GT (09:25)
[2022-03-27] MEDS: PLECANATIDE 3 MG TABLET PO (09:25)
[2022-03-27] MEDS: Ascorbic Acid 500 MG Tablet GT (09:26)
[2022-03-27] MEDS: Phenobarbital 20 MG/5 ML UDC 60 MG GT ×2 (09:36→20:18)
[2022-03-27] MEDS: GABAPENTIN 250 MG/5 ML SOLUTION 500 MG GT ×4 (09:37→20:18)
--- NOTE | 2022-03-27 10:11 | CASEMGMT ---
RN ANAYELI NOTE: F2F w/documentation from Dr Dillard for medical necessity of hosp bed sent to [facility] via [facility] at this time. Call to Leanne @ [facility] and she was made aware. She states it is a lengthy process to get hospital bed approved and delivered and she does not know when it will be ready to be delivered to pt's home. She states no further information is needed at this time. She was provided w/this RN CM contact info and states will have Cassie from [facility] call this RN CM if further documentation/info is needed. Otherwise, they will reach out to pt's parents and will go over information w/them, [id number] cost and arrange for hospital bed delivery once insurance approves. RN CM to room and spoke w/parents @ bedside. They were made aware of all of the above. They state can use the current hospital bed pt has until a new one is delivered. They were made aware there may be additional monthly cost (in addition to the $50/month upgrade to full-electric bed), but the exact amt is unknown at this time until it is process through insurance. They voice understanding and further questions answered. Call placed to Compa ([phone]) @ [facility], where pt has home aides from. He was made aware anticipate pt will be medically ready for discharge over the weekend. He states he does not have access to a fax, so [facility] unable to fax discharge instructions to him. He states he will get a copy of them from pt's parents once pt returns home. He asks that [facility] call him to notify him when pt is discharged. [facility] order sent to N via [facility] w/message informing them anticipate pt will discharge sometime over the w/e. Green sheet placed on pt's chart w/instructions for notify [facility] and also [facility] aide agency. Parents deny having any further discharge questions/needs/concerns. Janice BAL RN CM
[2022-03-27] MEDS: Jevity 1.5 1,000 ML 10 ML GT ×2 (12:09→17:41)
[2022-03-27] MEDS: Glycerin/Hypromellose/PEG400 15 ml Bottle 1 DRP EACH EYE (14:09)
[2022-03-27] MEDS: Menthol/Lanolin/Calamine/Znox 113 GM Tube 1 APPLIC TOPICAL ×2 (14:09→20:21)
--- NOTE | 2022-03-27 14:14 | CON.PCM.ID_ITS ---
Assessment & Plan Assessment/Plan (1) Sepsis: PLAN: Due to pneumonia. Sputum with GBS and proteus. Prior ho pseudomonas. Will narrow zosyn to ceftriaxone, plan on 7-10 days total of abx. Will follow, thank you (2) Cerebral palsy: (3) Chronic respiratory failure with hypoxia: HPI Consult Data Date of Consult: 03/27/22 HPI Narrative Reason for Consultation: pneumonia HPI Narrative: KRISS MICHAEL, is a 42 M with cerebral palsy, presented 03/24 with new onset fever, tachypnea, n/v, increased trach secretions, and hypotension. Admitted to the floor on zosyn, transferred to icu. Now fever improved. ROS unobtainable due to mental status. [facility] Medical History Acute dyspnea Anemia in chronic illness Cerebral palsy Colostomy prolapse Debility Edema History of seizure disorder Iron deficiency anemia Nonrheumatic mitral valve prolapse Obesity Pseudomonas pneumonia Pulmonary embolism on left (06/14/19) Redundant colon Thrombocytopenia Tracheostomy in place Upper GI bleeding (04/2020) Home Medications phenobarbital 20 mg/5 mL (4 mg/mL) oral elixir 60 mg G-tube 5X/DAY pain 02/19/17 [History Last Taken 04/24/20 21:00] Lactobacillus acidophilus 1 cap G-tube DAILY gut health 02/04/18 [History Last Taken 04/24/20 09:00] metoclopramide HCl 5 mg/5 mL oral solution 5 mg feeding tube TID thrush 09/16/18 [History Last Taken 04/24/20 21:00] lorazepam 1 mg tablet 2 mg G-tube Q8 PRN Agitation 10/08/18 [History Last Taken 04/24/20 22:00] Cough Assist 1 dose .Route .MEDSUPPLY assist in clearing secretions 12/25/18 [History Last Taken Unknown] ferrous sulfate 15 mg iron (75 mg)/mL oral drops 75 mg G-tube DAILY supplement 12/25/18 [History Last Taken 04/24/20 16:00] oxygen concentrator 1 dose .Route .MEDSUPPLY second unit, 4 LPM cont all modalities 12/25/18 [History Last Taken Unknown] ondansetron HCl 4 mg tablet 5 ml feeding tube DAILY PRN Nausea 05/09/19 [History Last Taken Unknown] ascorbic acid (vitamin C) 500 mg/5 mL oral syrup 500 mg G-tube DAILY Check with primary doctor 08/04/19 [History Last Taken Unknown] gabapentin 250 mg/5 mL oral solution 500 mg G-tube 4X/DAY Check with primary doctor 09/26/19 [History Last Taken 04/25/20 06:00] albuterol sulfate 2.5 mg/3 mL (0.083 %) solution for nebulization 2.5 mg inhalation Q4H PRN Sob &/Or Wheezing 11/27/20 [History Last Taken Unknown] baclofen 5 mg/5 mL oral solution 20 mg G-tube Q6H Spasticity 11/27/20 [History Last Taken Unknown] esomeprazole magnesium 40 mg granules delayed release for susp (Nexium Packet) 40 mg G-tube BID Check with primary doctor 11/27/20 [History Last Taken Unknown] famotidine 20 mg tablet (Pepcid) 20 mg feeding tube LUNCH Check with primary doctor 11/27/20 [History Last Taken Unknown] lactose-reduced food with fiber 0.06 gram-1.2 kcal/mL oral liquid 1,000 ml G- tube DAILY Check with primary doctor 11/27/20 [History Last Taken Unknown] plecanatide 3 mg tablet 3 mg G-tube DAILY Check with primary doctor 11/27/20 [History Last Taken Unknown] simethicone 40 mg/0.6 mL oral drops,suspension 40 mg G-tube PRN PRN GAS 11/27/20 [History Last Taken Unknown] doxazosin 2 mg tablet 2 mg PO DAILY Check with primary doctor 11/30/21 [History Last Taken Unknown] cholecalciferol (vitamin D3) 10 mcg/mL (400 unit/mL) oral drops 50 mcg feeding tube DAILY vitiamin 03/24/22 [History Last Taken Unknown] guaifenesin 200 mg/5 mL oral liquid 200 mg feeding tube Q6H PRN Cough 03/24/22 [History Last Taken Unknown] Allergy/AdvReac Type Severity Reaction Status Date / Time cisapride monohydrate Allergy Rash Verified 03/24/22 17:08 [From Propulsid] house dust Allergy NEEDS Verified 03/24/22 17:08 FOLLOW-UP codeine AdvReac hallucinati Verified 03/24/22 17:08 ons metronidazole [From Flagyl] AdvReac Rash Verified 03/24/22 17:08 morphine AdvReac Hallucinati Verified 03/24/22 17:08 ons Family History Mother Hepatitis C Hypertension Father CAD (coronary artery disease) Atrial fibrillation Hypertension H/O heart artery stent Surgical History Colostomy in place Heel cord lengthening History of colostomy History of eye surgery History of gastrostomy tube placement History of open reduction and internal fixation (ORIF) procedure History of soft tissue release Status post insertion of intrathecal baclofen pump Social History household members: family housing: house current occupational status: disabled Smoking Status: Never smoker alcohol intake: never substance use type: does not use caffeine: No Physical Exam Const no apparent distress General Appearance: lethargic HEENT normocephalic and head/scalp atraumatic Eyes PERRL and EOMs intact bilaterally Neck supple Neck Narrative: trach in place Resp Effort and Inspection: mechanically ventilated Auscultation: rhonchi Cardio regular rate and regular rhythm GI soft to palpation, non-tender and non-distended Extremity General Extremity: Negative for edema Skin no rashes or lesions noted Lab / Micro Data Attestation: I reviewed the patient's lab results. Result Diagrams: 03/27/22 03:55 03/27/22 03:55 Labs: Laboratory Results - last 24 hr 03/27/22 03:55: WBC 5.0, RBC 3.33 L, Hgb 8.9 L, Hct 28.5 L, MCV 85.6, MCH 26.7 L , MCHC 31.2 L, RDW Std Deviation 45.3 H, RDW Coeff of Emilee 14.3, Plt Count 145 L, MPV 10.2, Immature Gran % (Auto) 0.400, Neut % (Auto) 41.0 L, Lymph % (Auto) 45.5 H, St[place]ard % (Auto) 11.5 H, Eos % (Auto) 1.6, Baso % (Auto) 0.0, Absolute Neuts (auto) 2.0, Absolute Lymphs (auto) 2.26, Nucleated RBC % 0 03/27/22 03:55: Sodium 143, Potassium 2.8 L, Chloride 112 H, Carbon Dioxide 23.0, Anion Gap 8, BUN 2 L, Creatinine 0.23 L, Estim Creat Clear Calc 495.77, E st GFR (MDRD) Af Amer 583, Est GFR (MDRD) Non-Af 482, BUN/Creatinine Ratio 8.7 L , Glucose 95, Calcium 7.7 L Micro: Microbiology 03/24/22 19:13 Sputum, Tracheal Aspirate Gram Stain - Final 03/24/22 19:13 Sputum, Tracheal Aspirate Respiratory Culture - Final Proteus mirabilis Streptococcus agalactiae (B) 03/24/22 18:25 Blood Culture (Wb) - Port Blood Culture - Preliminary No growth in 48 hours. 03/24/22 17:40 Blood Culture (Wb) - Port Blood Culture - Preliminary No growth in 48 hours. Rhythm Strip Rhythm Strip: Sinus Rhythm Rate: 84 Ectopy: None Radiology Impression KUB X-Ray 03/27/22 07:38 IMPRESSION: Persistent gaseous distention of bowel. Electronically Signed: Jesenia Whitt MD at 8:03 EST ,
[2022-03-28] VITALS (12 sets, daily range): BP systolic 97–152; BP diastolic 74–102; PULSE 85–129; RESP 19–27; TEMP 36.7–37.2; O2SAT 90–95
[2022-03-28 04:09] LABS: Absolute Lymphocyte Count 2.37 X10^3/uL (0.83-4.51); Absolute Neutrophil Count 1.9 X10^3/uL (2.0-7.7); Basophil# 0.01 X10^3/uL; Basophil% 0.2 % (0-1); Eosinophil# 0.61 X10^3/uL; Eosinophils% 11.2 % (0-5); Hematocrit 31.2 % (40-54); Hemoglobin 9.7 g/dL (13.0-16.5); Lymphocyte # 2.37 X10^3/ul (0.83-4.51); Lymphocyte % 43.6 % (19-41); Mean Corp Hgb Conc 31.1 g/dL (32-36); Mean Corpuscular Volume 86.9 fL (80-94); Mean Platelet Vol. 9.7 fl (6.2-12.0); Monocyte% 9.2 % (0-10); NRBC Flagged by Analyzer 0 % (0-5); Neutrophil # 1.93 X10^3/uL (2.7-7.7); Neutrophil % 35.4 % (47-70); Platelet Count 156 K/mm3 (150-450); RBC Distribution Width CV 14.6 % (11.6-14.6); RBC Distribution Width SD 47.5 fl (35.1-43.9); Red Blood Count 3.59 M/mm3 (4.6-6.2); White Blood Count 5.4 K/mm3 (4.4-11.0)
[2022-03-28 04:19] LABS: Anion Gap 8 (5-15); BUN 2 mg/dL (7-18); BUN/Creat Ratio 10.1 RATIO (10-20); Calcium,Total 8.5 mg/dL (8.5-10.1); Chloride 113 mmol/L (98-107); EST Glomerular Filtration Rate 566 mL/min (>60); Est Glom Filt Rate - Afr Amer 685 mL/min (>60); Estimated Creatinine Clearance 552.78 ml/min; Glucose 103 mg/dL (74-106); Potassium 4.1 mmol/L (3.5-5.1); Sodium Level 146 mmol/L (136-145)
[2022-03-28] MEDS: Menthol/Lanolin/Calamine/Znox 113 GM Tube 1 APPLIC TOPICAL ×3 (04:53→21:49)
[2022-03-28] MEDS: BACLOFEN 5 MG/ML 20 MG PO ×4 (04:53→23:41)
[2022-03-28] MEDS: Metoclopramide 10 MG/10 ML UDC 5 MG GT ×3 (04:54→21:51)
[2022-03-28] MEDS: Heparin Injection (Vial) 5,000 UNIT/ML VIAL 5000 UNIT SC ×3 (04:56→21:50)
--- NOTE | 2022-03-28 06:37 | PN.CC_ITS ---
Assessment & Plan Assessment/Plan (1) Chronic respiratory failure: QUALIFIERS: Respiratory failure complication: hypoxia and hypercapnia Qualified Code(s): J96.11 - Chronic respiratory failure with hypoxia; J96.12 - Chronic respiratory failure with hypercapnia (2) Sepsis: PLAN: Plan RECOMMENDATIONS: 1. Continue vent support with SIMV. Wean oxygen to keep saturations between 90 to 94% 2. Agree with transition to ceftriaxone. Possibly Augmentin on discharge, but defer to ID 3. Aggressive pulmonary toileting 4. Discharge planning 5. Could consider surgery consult for abdominal distention 6. Continue nutritional support via G-tube. 7. Monitor fluid status closely. IMPRESSIONS: 1. Acute on chronic hypoxic respiratory failure secondary to septic shock secondary to probable gram-negative pneumonia Clinical suspicion for mucous plugging in the setting of pseudomonal pneumonia as precipitating etiology for acute presentation. Patient has had previous pseudomonal infections with resistance to ciprofloxacin and Levaquin. Patient is now growing Proteus that is relatively sensitive. Patient will need aggressive pulmonary toileting. Patient back to regular vent settings, with slightly increased FiO2, now that vitals have normalized. Recommend continuing ventilatory support with SIMV per home regimen throughout the day and night. Continue bronchodilator therapy as needed. Wean oxygen as tolerated for saturations greater than 90%. Mother is comfortable with this plan. 2. Cerebral palsy/spastic quadriplegia/seizure disorder/GERD/history of PE Complicates care, management, recovery and prognosis. 3. Recurrent pseudomonal sepsis Defer to primary service on whether infectious disease should be involved. Unclear if patient may benefit from aerosolized tobramycin intermittently at home to avoid repeat sepsis. 4. Abdominal distention Unclear etiology. X-ray shows significant gas, but no obvious obstruction. Patient is having ostomy output. Patient receiving trophic feeds with no emesis. Could consider surgery consult for evaluation. Subjective Subjective Secretions much improved per nursing. No emesis has been noted overnight. Radha ent remains on trophic feeds with some abdominal distention. Objective Data Objective Data Vital Signs: Vital Signs Temp Pulse Resp BP Pulse Ox O2 Del Method O2 Flow Rate 36.7 C 86 22 H 101/75 92 Mechanical Ventilator 4 03/28/22 04:00 03/28/22 04:00 03/28/22 04:00 03/28/22 04:00 03/28/22 04:00 03/28/22 04:00 03/28/22 04:00 Oxygen Flow Rate (L/min) 4 Oxygen Delivery Method Mechanical Ventilator Weight: 79.6 kg Body Mass Index (BMI) 33.8 Intake & Output: Intake and Output for Last 24 Hours 03/26/22 03/27/22 03/28/22 23:59 23:59 23:59 Intake Total 5150.00 / 5275.00 3050.33 / 3050.33 120 / 120 Output Total 650 / 650 600 / 600 150 / 150 Balance 4500.00 / 4625.00 2450.33 / 2450.33 -30 / -30 Lab / Micro Data Attestation: I reviewed the patient's lab results. Result Diagrams: 03/28/22 03:45 03/28/22 03:45 Labs: Laboratory Results - last 24 hr 03/28/22 03:45: WBC 5.4, RBC 3.59 L, Hgb 9.7 L, Hct 31.2 L, MCV 86.9, MCH 27.0, MCHC 31.1 L, RDW Std Deviation 47.5 H, RDW Coeff of Emilee 14.6, Plt Count 156, MPV 9.7, Immature Gran % (Auto) 0.400, Neut % (Auto) 35.4 L, Lymph % (Auto) 43.6 H, [place]yth % (Auto) 9.2, Eos % (Auto) 11.2 H, Baso % (Auto) 0.2, Absolute Neuts (auto) 1.9 L, Absolute Lymphs (auto) 2.37, Nucleated RBC % 0 03/28/22 03:45: Sodium 146 H, Potassium 4.1, Chloride 113 H, Carbon Dioxide 25.0, Anion Gap 8, BUN 2 L, Creatinine 0.20 L, Estim Creat Clear Calc 552.78, Est GFR (MDRD) Af Amer 685, Est GFR (MDRD) Non-Af 566, BUN/Creatinine Ratio 10.1, Glucose 103, Calcium 8.5 Micro: Microbiology 03/24/22 19:13 Sputum, Tracheal Aspirate Gram Stain - Final 03/24/22 19:13 Sputum, Tracheal Aspirate Respiratory Culture - Final Proteus mirabilis Streptococcus agalactiae (B) 03/24/22 18:25 Blood Culture (Wb) - Port Blood Culture - Preliminary No growth in 48 hours. 03/24/22 17:40 Blood Culture (Wb) - Port Blood Culture - Preliminary No growth in 48 hours. 03/24/22 22:42 Mucosa - Nasopharyngeal Respiratory Panel (PCR) - Final 03/24/22 20:50 Nasal Secretion SARS-CoV-2 & FLU Antigen (Rapid) - Final Radiography Diagnostic Testing: Radiology Impression KUB X-Ray 03/27/22 07:38 IMPRESSION: Persistent gaseous distention of bowel. Electronically Signed: Jesenia Whitt MD at 8:03 EST , Rhythm Strip Rhythm Strip: Sinus Rhythm Rate: 86 Ectopy: None Physical Exam Const no apparent distress Constitutional Narrative: Middle-aged, quadriplegic male, appears comfortable and alert. General Appearance: cooperative and patient mechanically ventilated HEENT normocephalic, head/scalp atraumatic and moist oral mucous membranes Eyes PERRL, EOMs intact bilaterally and conjunctivae normal Neck no lymphadenopathy and supple Neck Narrative: Tracheostomy site intact. General: tracheostomy present Lymph Lymphatic: no lymphadenopathy noted Chest inspection of chest normal Resp Resp Narrative: Baseline ventilator settings with slightly increased FiO2 Auscultation: Negative for rales, rhonchi or wheezes Cardio regular rate, regular rhythm, S1 normal heart sound, S2 normal heart sound, no murmurs, no rub, no gallops and no JVD GI normal to inspection, nondistended, normoactive bowel sounds, soft to palpation and non-tender GI Narrative: Stoma pink and moist. Inspection: abdominal distention, GI tube present and ostomy present Extremity Extremity Narrative: Baseline contractures noted. General Extremity: clubbing and edema Skin no rashes or lesions noted Neuro Neuro Narrative: Baseline neurologic status with spastic quadriplegia. Psych Mood & Affect: flat affect Charges/Coding Visit Charges Inpatient E&M: 04638 Subs Hosp L2
--- NOTE | 2022-03-28 07:14 | PCM.PN.HOSP ---
Subjective Subjective Resting comfortably bed with mother at bedside, BP within normal limits, heart rate roughly 100, seems to have less secretions from trach, does have secretions from mouth however, tube feeds at 10 Objective Data Objective Data Vital Signs: Vital Signs Temp Pulse Resp BP Pulse Ox O2 Del Method O2 Flow Rate 98.1 F 86 22 H 101/75 92 Mechanical Ventilator 4 03/28/22 04:00 03/28/22 04:00 03/28/22 04:00 03/28/22 04:00 03/28/22 04:00 03/28/22 04:00 03/28/22 04:00 Oxygen Flow Rate (L/min) 4 Oxygen Delivery Method Mechanical Ventilator Weight: 79.6 kg Body Mass Index (BMI) 33.8 Intake & Output: Intake and Output for Last 24 Hours 03/26/22 03/27/22 03/28/22 23:59 23:59 23:59 Intake Total 5150.00 / 5275.00 3050.33 / 3050.33 120 / 120 Output Total 650 / 650 600 / 600 150 / 150 Balance 4500.00 / 4625.00 2450.33 / 2450.33 -30 / -30 Lab / Micro Data Result Diagrams: 03/28/22 03:45 03/28/22 03:45 Labs: Laboratory Results - last 24 hr 03/28/22 03:45: WBC 5.4, RBC 3.59 L, Hgb 9.7 L, Hct 31.2 L, MCV 86.9, MCH 27.0, MCHC 31.1 L, RDW Std Deviation 47.5 H, RDW Coeff of Emilee 14.6, Plt Count 156, MPV 9.7, Immature Gran % (Auto) 0.400, Neut % (Auto) 35.4 L, Lymph % (Auto) 43.6 H, [place]eth % (Auto) 9.2, Eos % (Auto) 11.2 H, Baso % (Auto) 0.2, Absolute Neuts (auto) 1.9 L, Absolute Lymphs (auto) 2.37, Nucleated RBC % 0 03/28/22 03:45: Sodium 146 H, Potassium 4.1, Chloride 113 H, Carbon Dioxide 25.0, Anion Gap 8, BUN 2 L, Creatinine 0.20 L, Estim Creat Clear Calc 552.78, Est GFR (MDRD) Af Amer 685, Est GFR (MDRD) Non-Af 566, BUN/Creatinine Ratio 10.1, Glucose 103, Calcium 8.5 Micro: Microbiology 03/24/22 19:13 Sputum, Tracheal Aspirate Gram Stain - Final 03/24/22 19:13 Sputum, Tracheal Aspirate Respiratory Culture - Final Proteus mirabilis Streptococcus agalactiae (B) 03/24/22 18:25 Blood Culture (Wb) - Port Blood Culture - Preliminary No growth in 48 hours. 03/24/22 17:40 Blood Culture (Wb) - Port Blood Culture - Preliminary No growth in 48 hours. 03/24/22 22:42 Mucosa - Nasopharyngeal Respiratory Panel (PCR) - Final 03/24/22 20:50 Nasal Secretion SARS-CoV-2 & FLU Antigen (Rapid) - Final Radiography Diagnostic Testing: Radiology Impression KUB X-Ray 03/27/22 07:38 IMPRESSION: Persistent gaseous distention of bowel. Electronically Signed: Jesenia Whitt MD at 8:03 EST Reading Location ID and State: [facility] / [place] Tel , Service support , Rhythm Strip Rhythm Strip: Sinus Rhythm Rate: 86 Ectopy: None Physical Exam Narrative General: Laying in bed, no acute distress HEENT: Tongue protuberant, oral secretions noted Eyes: Opens eyes spontaneously, very mild crusting around outside of right eye without any erythema or active drainage Neck: Trach in place Respiratory: Aeration improving Cardiovascular: Regular rate regular rhythm GI: Firm and and distended Extremities: No edema, contractures noted Musculoskeletal: Contracted upper extremities Neuro: Has known cerebral palsy and has trach Skin: No rashes appreciated Psych: Unable to cooperate at this time Assessment & Plan Assessment/Plan (1) Sepsis: (2) Chronic respiratory failure with hypoxia: (3) Aspiration into airway: PLAN: Plan 42-year-old male with history of seizure disorder, cerebral palsy, chronic trach who presented to [facility] on with fever, shortness of breath, vomiting x1 day. Was found to have septic shock and was sent to the ICU and is now on pressors. #Septic shock secondary to aspiration pneumonia due to Proteus mirabilis and group B strep Had been observed vomiting with concerns for aspiration Fever greater than 105, tachypnea Patient was placed in the ICU and despite adequate fluids as well and required pressors, still on Levophed but is stabilized On IV Zosyn Cultures pending ICU consult 2/2: Remains on fluids and Zosyn. BP improving. Lactic acid had resolved. Sputum culture growing gram-negative rods. Blood cultures pending. Reviewed ICU note, will involve infectious disease especially given recurrent pseudomonal infections and present polymicrobial growth. Continue to clear secretions which have remained thick and copious. 2/3: Remains on Zosyn, await ID recommendations, at present is growing Proteus mirabilis and Streptococcus group B, culture still preliminary, blood culture still pending 24: ID following, Zosyn has been narrowed to Rocephin and plan will be for 7 to 10 days of total antibiotics. #Acute nausea and vomiting likely secondary to #1 KUB was obtained to rule out bowel obstruction, nonspecific but no overt abnormalities appreciated Continue Reglan 2/2: Not vomiting but is slightly distended and somewhat gaseous which is happened on previous admissions as well, mother reports [employer] often works, will add this 2/3: Tube feeds on hold given episode of emesis yesterday, abdomen firm, repeat KUB 24: Repeat KUB nonspecific, bowel sounds present, abdomen still distended possibly slightly softer today. Discussed surgery consult with mother and she was hesitant and said he usually is slow to improve but does improve. We will continue this discussion. Has not vomited, currently on tube feeds at 10 cc/h with free water flushes every 4 hours. Does have slightly elevated sodium today and may benefit from slight increase in free water flushes, nutrition following. #Chronic respiratory failure on chronic vent settings via tracheostomy Pulm on board Breathing treatments On his vent at present 2/2: Growing gram negative and sputum, continues to be on home vent, pulm/ICU on board, continue Zosyn and clearing secretions which continue to be thick and copious 2/3: Slowly improving secretions, continue vent, continue Zosyn, ID consult pending 03/28: Zosyn changed to Rocephin, on home vent #Cerebral palsy with spastic quadriplegia Baclofen, gabapentin, Ativan #Seizure disorder Gabapentin, Ativan, phenobarb #Chronic dysphagia Status post PEG tube Tube feeds, presently titrating 2/3: Tube feeds on hold due to vomiting 2/4: Tolerating tube feeds at 10 #DVT ppx: Heparin subcu Lucia Dillard MD Time spent in the patient's overall evaluation,decision-making process, review of diagnostic data, adjustment of management, discussion with other providers, nursing nursing and ancillary staff involved in patient's care documentation, 30 minutes Charges/Coding Visit Charges Inpatient E&M: 29170 Subs Hosp L2
[2022-03-28] MEDS: PLECANATIDE 3 MG TABLET PO (09:15)
[2022-03-28] MEDS: Cholecalciferol (VIT D3) 25 MCG TABLET (1,000 UNITS) 50 MCG GT (09:15)
[2022-03-28] MEDS: Doxazosin 1 MG Tablet 2 MG GT (09:15)
[2022-03-28] MEDS: Ascorbic Acid 500 MG Tablet GT (09:15)
[2022-03-28] MEDS: Phenobarbital 20 MG/5 ML UDC 60 MG GT ×2 (09:24→21:50)
[2022-03-28] MEDS: 0.9% Saline Lock 10 ML Syringe IV (09:25)
[2022-03-28] MEDS: GABAPENTIN 250 MG/5 ML SOLUTION 500 MG GT ×4 (09:25→21:50)
[2022-03-28] MEDS: LORazepam 1 MG Tablet 2 MG GT (15:04)
[2022-03-29] VITALS (11 sets, daily range): BP systolic 95–138; BP diastolic 60–101; PULSE 84–103; RESP 13–20; TEMP 36.2–37.6; O2SAT 93–98
[2022-03-29 05:06] LABS: Absolute Lymphocyte Count 2.64 X10^3/uL (0.83-4.51); Absolute Neutrophil Count 1.9 X10^3/uL (2.0-7.7); Basophil# 0.02 X10^3/uL; Basophil% 0.4 % (0-1); Eosinophil# 0.36 X10^3/uL; Eosinophils% 6.8 % (0-5); Hematocrit 29.9 % (40-54); Hemoglobin 9.3 g/dL (13.0-16.5); Lymphocyte # 2.64 X10^3/ul (0.83-4.51); Lymphocyte % 49.5 % (19-41); Mean Corp Hgb Conc 31.1 g/dL (32-36); Mean Corpuscular Volume 86.9 fL (80-94); Mean Platelet Vol. 9.6 fl (6.2-12.0); Monocyte# 0.41 X10^3/uL; Monocyte% 7.7 % (0-10); NRBC Flagged by Analyzer 0 % (0-5); Neutrophil # 1.85 X10^3/uL (2.7-7.7); Neutrophil % 34.7 % (47-70); Platelet Count 172 K/mm3 (150-450); RBC Distribution Width CV 14.6 % (11.6-14.6); RBC Distribution Width SD 46.4 fl (35.1-43.9); Red Blood Count 3.44 M/mm3 (4.6-6.2); White Blood Count 5.3 K/mm3 (4.4-11.0)
[2022-03-29 05:19] LABS: Anion Gap 9 (5-15); BUN 2 mg/dL (7-18); BUN/Creat Ratio 8.9 RATIO (10-20); Calcium,Total 8.1 mg/dL (8.5-10.1); Chloride 108 mmol/L (98-107); Creatinine, Serum 0.22 mg/dL (0.70-1.30); EST Glomerular Filtration Rate 494 mL/min (>60); Est Glom Filt Rate - Afr Amer 598 mL/min (>60); Glucose 93 mg/dL (74-106); Potassium 3.2 mmol/L (3.5-5.1); Sodium Level 143 mmol/L (136-145)
[2022-03-29] MEDS: BACLOFEN 5 MG/ML 20 MG PO ×3 (05:40→18:13)
[2022-03-29] MEDS: Metoclopramide 10 MG/10 ML UDC 5 MG GT ×3 (05:41→21:37)
[2022-03-29] MEDS: Heparin Injection (Vial) 5,000 UNIT/ML VIAL 5000 UNIT SC ×3 (05:41→21:40)
[2022-03-29] MEDS: 0.9% Saline Lock 10 ML Syringe IV ×3 (05:42→21:41)
[2022-03-29] MEDS: Menthol/Lanolin/Calamine/Znox 113 GM Tube 1 APPLIC TOPICAL ×2 (05:42→21:41)
--- NOTE | 2022-03-29 06:43 | PN.CC_ITS ---
Assessment & Plan Assessment/Plan (1) Chronic respiratory failure: QUALIFIERS: Respiratory failure complication: hypoxia and hypercapnia Qualified Code(s): J96.11 - Chronic respiratory failure with hypoxia; J96.12 - Chronic respiratory failure with hypercapnia (2) Sepsis: PLAN: Plan RECOMMENDATIONS: 1. Continue vent support with SIMV. Wean oxygen to keep saturations between 90 to 94% 2. Agree with transition to ceftriaxone. Possibly Augmentin on discharge, but defer to ID 3. Aggressive pulmonary toileting 4. Advance tube feeds and monitor response 5. Could consider surgery consult for abdominal distention 6. Continue nutritional support via G-tube. 7. Monitor fluid status closely. IMPRESSIONS: 1. Acute on chronic hypoxic respiratory failure secondary to septic shock secondary to probable gram-negative pneumonia Clinical suspicion for mucous plugging in the setting of pseudomonal pneumonia as precipitating etiology for acute presentation. Patient has had previous pseudomonal infections with resistance to ciprofloxacin and Levaquin. Patient is now growing Proteus that is relatively sensitive. Patient will need aggressive pulmonary toileting. Coughing has significantly improved. Patient back to regular vent settings, with slightly increased FiO2, now that vitals have normalized. Recommend continuing ventilatory support with SIMV per home regimen throughout the day and night. Continue bronchodilator therapy as needed. Wean oxygen as tolerated for saturations greater than 90%. Mother is comfortable with this plan. 2. Cerebral palsy/spastic quadriplegia/seizure disorder/GERD/history of PE Complicates care, management, recovery and prognosis. 3. Recurrent pseudomonal sepsis Defer to primary service on whether infectious disease should be involved. Unclear if patient may benefit from aerosolized tobramycin intermittently at home to avoid repeat sepsis. 4. Abdominal distention Unclear etiology. X-ray shows significant gas, but no obvious obstruction. Patient is having ostomy output. Patient receiving trophic feeds with no emesis. We will attempt to advance tube feeds today. Could consider surgery consult for evaluation. Addendum 7 AM: At approximately 6:45 AM, called emergently to the patient room for secondary to the saturations. Attempts at suctioning with lavage were unsuccessful. Oxygen was increased to 10 L/min and patient eventually required bag mask ventilation. Chest x-ray has been ordered. No obvious mucous plug, but saturations have improved. Subjective Subjective Patient did okay overnight. Patient continues on trophic feeds, but no emesis has been reported. Patient's baseline saturations have improved on 4 L/min. No significant hypotension has been noted. Objective Data Objective Data Vital Signs: Vital Signs Temp Pulse Resp BP Pulse Ox O2 Del Method O2 Flow Rate 36.4 C L 84 14 110/79 94 Mechanical Ventilator 4 03/29/22 05:00 03/29/22 05:00 03/29/22 05:00 03/29/22 05:00 03/29/22 05:00 03/29/22 05:00 03/29/22 05:00 Oxygen Flow Rate (L/min) 4 Oxygen Delivery Method Mechanical Ventilator Weight: 78.8 kg Body Mass Index (BMI) 33.8 Intake & Output: Intake and Output for Last 24 Hours 03/27/22 03/28/22 03/29/22 23:59 23:59 23:59 Intake Total 3050.33 / 3050.33 670 / 670 60 / 60 Output Total 600 / 600 350 / 350 50 / 50 Balance 2450.33 / 2450.33 320 / 320 10 / 10 Lab / Micro Data Attestation: I reviewed the patient's lab results. Result Diagrams: 03/29/22 05:00 03/29/22 05:00 Labs: Laboratory Results - last 24 hr 03/29/22 05:00: WBC 5.3, RBC 3.44 L, Hgb 9.3 L, Hct 29.9 L, MCV 86.9, MCH 27.0, MCHC 31.1 L, RDW Std Deviation 46.4 H, RDW Coeff of Emilee 14.6, Plt Count 172, MPV 9.6, Immature Gran % (Auto) 0.900, Neut % (Auto) 34.7 L, Lymph % (Auto) 49.5 H, [place] % (Auto) 7.7, Eos % (Auto) 6.8 H, Baso % (Auto) 0.4, Absolute Neuts (auto) 1.9 L, Absolute Lymphs (auto) 2.64, Nucleated RBC % 0 03/29/22 05:00: Sodium 143, Potassium 3.2 L, Chloride 108 H, Carbon Dioxide 26.0, Anion Gap 9, BUN 2 L, Creatinine 0.22 L, Estim Creat Clear Calc 502.53, Est GFR (MDRD) Af Amer 598, Est GFR (MDRD) Non-Af 494, BUN/Creatinine Ratio 8.9 L, Glucose 93, Calcium 8.1 L Micro: Microbiology 03/24/22 19:13 Sputum, Tracheal Aspirate Gram Stain - Final 03/24/22 19:13 Sputum, Tracheal Aspirate Respiratory Culture - Final Proteus mirabilis Streptococcus agalactiae (B) 03/24/22 18:25 Blood Culture (Wb) - Port Blood Culture - Preliminary No growth in 48 hours. 03/24/22 17:40 Blood Culture (Wb) - Port Blood Culture - Preliminary No growth in 48 hours. 03/24/22 22:42 Mucosa - Nasopharyngeal Respiratory Panel (PCR) - Final 03/24/22 20:50 Nasal Secretion SARS-CoV-2 & FLU Antigen (Rapid) - Final Rhythm Strip Rhythm Strip: Sinus Rhythm Rate: 89 Ectopy: None Physical Exam Const alert and no apparent distress Constitutional Narrative: Middle-aged, quadriplegic male, appears comfortable and alert. General Appearance: patient mechanically ventilated HEENT normocephalic, head/scalp atraumatic and moist oral mucous membranes Eyes PERRL, EOMs intact bilaterally and conjunctivae normal Neck no lymphadenopathy and supple Neck Narrative: Tracheostomy site intact. General: tracheostomy present Lymph Lymphatic: no lymphadenopathy noted Chest inspection of chest normal Resp Resp Narrative: Baseline ventilator settings with slightly increased FiO2 Effort and Inspection: actively coughing non-productive Auscultation: Negative for rales, rhonchi or wheezes Cardio regular rate, regular rhythm, S1 normal heart sound, S2 normal heart sound, no murmurs, no rub, no gallops and no JVD GI normal to inspection, nondistended, normoactive bowel sounds, soft to palpation and non-tender GI Narrative: Stoma prolapsed, pink and moist. Inspection: abdominal distention, GI tube present and ostomy present Extremity Extremity Narrative: Baseline contractures noted. General Extremity: clubbing and edema Skin no rashes or lesions noted Neuro Neuro Narrative: Baseline neurologic status with spastic quadriplegia. Psych Mood & Affect: flat affect Charges/Coding Visit Charges Inpatient E&M: 80746 Subs Hosp L3
--- NOTE | 2022-03-29 06:55 | RAD_ITS ---
HISTORY: hypoxia. TECHNIQUE: XR Chest 1 View. COMPARISON: 03/26/2022. FINDINGS: LINES/TUBES: Right chest wall port and tracheostomy again seen. CARDIOMEDIASTINAL BORDERS: Stable. LUNGS: Low lung volumes with chronic elevation of the right hemidiaphragm. Mild upper lobe opacities again seen. Decreased left retrocardiac opacity and right basilar opacity. PLEURA: No pleural effusion or pneumothorax. OTHER: Persistent gaseous distention of bowel in the upper abdomen. RAD/Chest 1 View (Portable) IMPRESSION: Decreased bibasilar atelectasis or inflammation. Unchanged mild linear upper lobe opacities. Electronically Signed: Jesenia Whitt MD at 10:21 EST ,
[2022-03-29] MEDS: Ondansetron 4 MG/2 ML Vial IV ×2 (09:37→21:36)
[2022-03-29] MEDS: PLECANATIDE 3 MG TABLET PO (10:38)
--- NOTE | 2022-03-29 10:39 | PN.HOSP_ITS ---
Subjective Subjective Laying in bed, had an episode of desat and required brief bagging but improved. Chest x-ray shows improvement. Still has had some abdominal distention that is waxing and waning, still on tube feeds of 10, has tolerated this and has not had further emesis. Objective Data Objective Data Vital Signs: Vital Signs Temp Pulse Resp BP Pulse Ox O2 Del Method O2 Flow Rate 97.5 F L 84 14 110/79 98 Mechanical Ventilator 4 03/29/22 05:00 03/29/22 05:00 03/29/22 05:00 03/29/22 05:00 03/29/22 09:42 03/29/22 09:42 03/29/22 09:42 Oxygen Flow Rate (L/min) 4 Oxygen Delivery Method Mechanical Ventilator Weight: 78.8 kg Body Mass Index (BMI) 33.8 Intake & Output: Intake and Output for Last 24 Hours 03/27/22 03/28/22 03/29/22 23:59 23:59 23:59 Intake Total 3050.33 / 3050.33 670 / 670 170 / 170 Output Total 600 / 600 350 / 350 450 / 450 Balance 2450.33 / 2450.33 320 / 320 -280 / -280 Lab / Micro Data Result Diagrams: 03/29/22 05:00 03/29/22 05:00 Labs: Laboratory Results - last 24 hr 03/29/22 05:00: WBC 5.3, RBC 3.44 L, Hgb 9.3 L, Hct 29.9 L, MCV 86.9, MCH 27.0, MCHC 31.1 L, RDW Std Deviation 46.4 H, RDW Coeff of Emilee 14.6, Plt Count 172, MPV 9.6, Immature Gran % (Auto) 0.900, Neut % (Auto) 34.7 L, Lymph % (Auto) 49.5 H, [place] % (Auto) 7.7, Eos % (Auto) 6.8 H, Baso % (Auto) 0.4, Absolute Neuts (auto) 1.9 L, Absolute Lymphs (auto) 2.64, Nucleated RBC % 0 03/29/22 05:00: Sodium 143, Potassium 3.2 L, Chloride 108 H, Carbon Dioxide 26.0, Anion Gap 9, BUN 2 L, Creatinine 0.22 L, Estim Creat Clear Calc 502.53, Est GFR (MDRD) Af Amer 598, Est GFR (MDRD) Non-Af 494, BUN/Creatinine Ratio 8.9 L, Glucose 93, Calcium 8.1 L Micro: Microbiology 03/24/22 19:13 Sputum, Tracheal Aspirate Gram Stain - Final 03/24/22 19:13 Sputum, Tracheal Aspirate Respiratory Culture - Final Proteus mirabilis Streptococcus agalactiae (B) 03/24/22 18:25 Blood Culture (Wb) - Port Blood Culture - Preliminary No growth in 48 hours. 03/24/22 17:40 Blood Culture (Wb) - Port Blood Culture - Preliminary No growth in 48 hours. 03/24/22 22:42 Mucosa - Nasopharyngeal Respiratory Panel (PCR) - Final 03/24/22 20:50 Nasal Secretion SARS-CoV-2 & FLU Antigen (Rapid) - Final Radiography Diagnostic Testing: Radiology Impression Chest X-Ray 03/29/22 06:55 IMPRESSION: Decreased bibasilar atelectasis or inflammation. Unchanged mild linear upper lobe opacities. Electronically Signed: Jesenia Whitt MD at 10:21 EST Reading Location ID and State: [facility] / [place] Tel , Service support , Rhythm Strip Rhythm Strip: Sinus Rhythm Rate: 89 Ectopy: None Physical Exam Narrative General: Laying in bed, appears vaguely uncomfortable HEENT: Tongue protuberant, oral secretions noted, tracheal secretions Eyes: Opens eyes spontaneously, very mild crusting around outside of right eye Neck: Trach in place, does have some drainage Respiratory: Transmitted upper airway sounds Cardiovascular: Regular rate regular rhythm GI: Firm and and distended Extremities: No pitting edema, contractures noted Musculoskeletal: Contracted upper extremities Neuro: Has known cerebral palsy and has trach Skin: No rashes appreciated Psych: Unable to cooperate at this time Assessment & Plan Assessment/Plan (1) Sepsis: (2) Chronic respiratory failure with hypoxia: (3) Aspiration into airway: PLAN: Plan 42-year-old male with history of seizure disorder, cerebral palsy, chronic trach who presented to [facility] on with fever, shortness of breath, vomiting x1 day. Was found to have septic shock and was sent to the ICU and is now on pressors. #Septic shock secondary to aspiration pneumonia due to Proteus mirabilis and group B strep Had been observed vomiting with concerns for aspiration Fever greater than 105, tachypnea Patient was placed in the ICU and despite adequate fluids as well and required pressors, still on Levophed but is stabilized On IV Zosyn Cultures pending ICU consult 2/2: Remains on fluids and Zosyn. BP improving. Lactic acid had resolved. Sputum culture growing gram-negative rods. Blood cultures pending. Reviewed ICU note, will involve infectious disease especially given recurrent pseudomonal infections and present polymicrobial growth. Continue to clear secretions which have remained thick and copious. 23: Remains on Zosyn, await ID recommendations, at present is growing Proteus mirabilis and Streptococcus group B, culture still preliminary, blood culture still pending 2: ID following, Zosyn has been narrowed to Rocephin and plan will be for 7 to 10 days of total antibiotics. 03/29: Remains on Rocephin, doing well from an infection standpoint but did have mucous plugging requiring suction but is doing better at this time though was having some increased secretions at time of exam #Acute nausea and vomiting likely secondary to #1 KUB was obtained to rule out bowel obstruction, nonspecific but no overt abnormalities appreciated Continue Reglan 2/2: Not vomiting but is slightly distended and somewhat gaseous which is happened on previous admissions as well, mother reports Mylanta often works, will add this 2/3: Tube feeds on hold given episode of emesis yesterday, abdomen firm, repeat KUB 03/28: Repeat KUB nonspecific, bowel sounds present, abdomen still distended possibly slightly softer today. Discussed surgery consult with mother and she was hesitant and said he usually is slow to improve but does improve. We will continue this discussion. Has not vomited, currently on tube feeds at 10 cc/h with free water flushes every 4 hours. Does have slightly elevated sodium today and may benefit from slight increase in free water flushes, nutrition following. 2: On TF @ 10, still distended, surgery consulted for further evaluation #Acute on chronic hypoxic respiratory failure with trach and home vent at baseline Pulm on board Breathing treatments On his vent at present 2/2: Growing gram negative and sputum, continues to be on home vent, pulm/ICU on board, continue Zosyn and clearing secretions which continue to be thick and copious 2/3: Slowly improving secretions, continue vent, continue Zosyn, ID consult [place] 2: Zosyn changed to Rocephin, on home vent 25: Overall doing better on the Rocephin, has had some secretions and episode of mucous plugging #Cerebral palsy with spastic quadriplegia Baclofen, gabapentin, Ativan #Seizure disorder Gabapentin, Ativan, phenobarb #Chronic dysphagia Status post PEG tube Tube feeds, presently titrating 2/3: Tube feeds on hold due to vomiting 2: Tolerating tube feeds at 10 25: Tube feeds at 10 cc/h, will have evaluation due to his distention #DVT ppx: Heparin subcu Lucia Dillard MD Time spent in the patient's overall evaluation,decision-making process, review of diagnostic data, adjustment of management, discussion with other providers, nursing nursing and ancillary staff involved in patient's care documentation, 30 minutes Charges/Coding Visit Charges Inpatient E&M: 69123 Subs Hosp L2
[2022-03-29] MEDS: Ascorbic Acid 500 MG Tablet GT (10:40)
[2022-03-29] MEDS: Doxazosin 1 MG Tablet 2 MG GT (10:41)
[2022-03-29] MEDS: Cholecalciferol (VIT D3) 25 MCG TABLET (1,000 UNITS) 50 MCG GT (10:41)
[2022-03-29] MEDS: GABAPENTIN 250 MG/5 ML SOLUTION 500 MG GT ×4 (10:49→21:37)
--- NOTE | 2022-03-29 11:38 | CT_ITS ---
HISTORY: Vomiting. TECHNIQUE: Helically acquired images were obtained of the abdomen and pelvis after the intravenous administration of 100mL Isovue-370. A radiation dose optimization technique was used for this scan. 446 images. COMPARISON: XR 03/27/2022, CT 01/11/2021. FINDINGS: Motion artifact lowers the sensitivity of examination. LOWER CHEST: Mild dependent left lower lobe opacity. Right chest wall port. Gynecomastia. BOWEL: Percutaneous gastrostomy tube in place. Bowel nondilated. Appendix nondilated. Mild fluid distention of colon with partial distal colectomy and left lower quadrant ostomy. Chronic parastomal herniation of small bowel without wall thickening. PERITONEUM: No significant ascites. LIVER: No enhancing mass. GALLBLADDER/BILIARY TREE: Gallbladder present. SPLEEN/PANCREAS: Homogeneous and nonenlarged. KIDNEYS/ADRENAL GLANDS: Unremarkable. VESSELS: No abdominal aortic aneurysm. PELVIC ORGANS: Unchanged appearance. Chronic distention and wall thickening of right rectal pouch. ABDOMINAL WALL: Retained catheter segment in the subcutaneous scar over the right lower quadrant. Fat-containing right inguinal hernia containing a small portion of the bladder wall. BONES: Mild-moderate scoliosis. Chronic osteopenia with gracile appearance. Dysplastic hips CT/Abdomen/Pelvis W IV Cont ONLY IMPRESSION: Mild left lower lobe atelectasis or aspiration pneumonitis. Mild fluid distention of colon suggesting enteritis. 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 No evidence of small bowel obstruction. Partial distal colectomy with chronic wall thickening and distention of rectal pouch. Other chronic findings as above. Electronically Signed: Jesenia Whitt MD at 12:53 EST ,
[2022-03-29] MEDS: LORazepam 1 MG Tablet 2 MG GT (11:47)
[2022-03-29] MEDS: Potassium Chloride Oral Soln 20 MEQ/15 ML UDC 40 MEQ PO ×2 (11:47→21:39)
[2022-03-29] MEDS: Phenobarbital 20 MG/5 ML UDC 60 MG GT ×2 (12:49→21:39)
--- NOTE | 2022-03-29 15:57 | CON.PCM.SX_ITS ---
Assessment & Plan Assessment/Plan (1) Sepsis: PLAN: I was consulted as the patient has been having projectile vomiting of his tube feeds. I ordered a CT scan which did not show any obstruction. The patient has a known parastomal hernia and there is no change in this and no sign of obstruction due to this. I am unsure as to the etiology of his vomiting but is not due to obstruction. I will follow peripherally as needed. Call me if there is any issue. I discussed with the family as well. Luis Simon MD Pager: [facility] [address] [place] [address], [address] [place] [address] Office: HPI Consult Data Date of Consult: 03/29/22 HPI Narrative HPI Narrative: KRISS MICHAEL, is a 42 M who has been having vomiting with tube feeds. I was consulted for the vomiting. [facility] Medical History Acute dyspnea Anemia in chronic illness Cerebral palsy Colostomy prolapse Debility Edema History of seizure disorder Iron deficiency anemia Nonrheumatic mitral valve prolapse Obesity Pseudomonas pneumonia Pulmonary embolism on left (06/14/19) Redundant colon Thrombocytopenia Tracheostomy in place Upper GI bleeding (04/2020) Home Medications phenobarbital 20 mg/5 mL (4 mg/mL) oral elixir 60 mg G-tube 5X/DAY pain 02/19/17 [History Last Taken 04/24/20 21:00] Lactobacillus acidophilus 1 cap G-tube DAILY gut health 02/04/18 [History Last Taken 04/24/20 09:00] metoclopramide HCl 5 mg/5 mL oral solution 5 mg feeding tube TID thrush 09/16/18 [History Last Taken 04/24/20 21:00] lorazepam 1 mg tablet 2 mg G-tube Q8 PRN Agitation 10/08/18 [History Last Taken 04/24/20 22:00] Cough Assist 1 dose .Route .MEDSUPPLY assist in clearing secretions 12/25/18 [History Last Taken Unknown] ferrous sulfate 15 mg iron (75 mg)/mL oral drops 75 mg G-tube DAILY supplement 12/25/18 [History Last Taken 04/24/20 16:00] oxygen concentrator 1 dose .Route .MEDSUPPLY second unit, 4 LPM cont all modalities 12/25/18 [History Last Taken Unknown] ondansetron HCl 4 mg tablet 5 ml feeding tube DAILY PRN Nausea 05/09/19 [History Last Taken Unknown] ascorbic acid (vitamin C) 500 mg/5 mL oral syrup 500 mg G-tube DAILY Check with primary doctor 08/04/19 [History Last Taken Unknown] gabapentin 250 mg/5 mL oral solution 500 mg G-tube 4X/DAY Check with primary doctor 09/26/19 [History Last Taken 04/25/20 06:00] albuterol sulfate 2.5 mg/3 mL (0.083 %) solution for nebulization 2.5 mg inhalation Q4H PRN Sob &/Or Wheezing 11/27/20 [History Last Taken Unknown] baclofen 5 mg/5 mL oral solution 20 mg G-tube Q6H Spasticity 11/27/20 [History Last Taken Unknown] esomeprazole magnesium 40 mg granules delayed release for susp (Nexium Packet) 40 mg G-tube BID Check with primary doctor 11/27/20 [History Last Taken Unknown] famotidine 20 mg tablet (Pepcid) 20 mg feeding tube LUNCH Check with primary doctor 11/27/20 [History Last Taken Unknown] lactose-reduced food with fiber 0.06 gram-1.2 kcal/mL oral liquid 1,000 ml G- tube DAILY Check with primary doctor 11/27/20 [History Last Taken Unknown] plecanatide 3 mg tablet 3 mg G-tube DAILY Check with primary doctor 11/27/20 [History Last Taken Unknown] simethicone 40 mg/0.6 mL oral drops,suspension 40 mg G-tube PRN PRN GAS 11/27/20 [History Last Taken Unknown] doxazosin 2 mg tablet 2 mg PO DAILY Check with primary doctor 11/30/21 [History Last Taken Unknown] cholecalciferol (vitamin D3) 10 mcg/mL (400 unit/mL) oral drops 50 mcg feeding tube DAILY vitiamin 03/24/22 [History Last Taken Unknown] guaifenesin 200 mg/5 mL oral liquid 200 mg feeding tube Q6H PRN Cough 03/24/22 [History Last Taken Unknown] Allergy/AdvReac Type Severity Reaction Status Date / Time cisapride monohydrate Allergy Rash Verified 03/24/22 17:08 [From Propulsid] house dust Allergy NEEDS Verified 03/24/22 17:08 FOLLOW-UP codeine AdvReac hallucinati Verified 03/24/22 17:08 ons metronidazole [From Flagyl] AdvReac Rash Verified 03/24/22 17:08 morphine AdvReac Hallucinati Verified 03/24/22 17:08 ons Family History Mother Hepatitis C Hypertension Father CAD (coronary artery disease) Atrial fibrillation Hypertension H/O heart artery stent Surgical History Colostomy in place Heel cord lengthening History of colostomy History of eye surgery History of gastrostomy tube placement History of open reduction and internal fixation (ORIF) procedure History of soft tissue release Status post insertion of intrathecal baclofen pump Social History household members: family housing: house current occupational status: disabled Smoking Status: Never smoker alcohol intake: never substance use type: does not use caffeine: No ROS Review of Systems ROS Unobtainable: due to endotracheal tube and due to mental status Physical Exam Const no apparent distress Eyes PERRL Cardio Rate: regular rate GI soft to palpation and non-distended Lab / Micro Data Result Diagrams: 03/29/22 05:00 03/29/22 05:00 Labs: Laboratory Results - last 24 hr 03/29/22 05:00: WBC 5.3, RBC 3.44 L, Hgb 9.3 L, Hct 29.9 L, MCV 86.9, MCH 27.0, MCHC 31.1 L, RDW Std Deviation 46.4 H, RDW Coeff of Emilee 14.6, Plt Count 172, MPV 9.6, Immature Gran % (Auto) 0.900, Neut % (Auto) 34.7 L, Lymph % (Auto) 49.5 H, [place] % (Auto) 7.7, Eos % (Auto) 6.8 H, Baso % (Auto) 0.4, Absolute Neuts (auto) 1.9 L, Absolute Lymphs (auto) 2.64, Nucleated RBC % 0 03/29/22 05:00: Sodium 143, Potassium 3.2 L, Chloride 108 H, Carbon Dioxide 26.0, Anion Gap 9, BUN 2 L, Creatinine 0.22 L, Estim Creat Clear Calc 502.53, Est GFR (MDRD) Af Amer 598, Est GFR (MDRD) Non-Af 494, BUN/Creatinine Ratio 8.9 L, Glucose 93, Calcium 8.1 L Rhythm Strip Rhythm Strip: Sinus Rhythm Rate: 89 Ectopy: None Radiology Impression Chest X-Ray 03/29/22 06:55 IMPRESSION: Decreased bibasilar atelectasis or inflammation. Unchanged mild linear upper lobe opacities. Electronically Signed: Jesenia Whitt MD at 10:21 EST , Abdomen/Pelvis CT 03/29/22 11:38 IMPRESSION: Mild left lower lobe atelectasis or aspiration pneumonitis. Mild fluid distention of colon suggesting enteritis. 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 No evidence of small bowel obstruction. Partial distal colectomy with chronic wall thickening and distention of rectal pouch. Other chronic findings as above. Electronically Signed: Jesenia Whitt MD at 12:53 EST ,
[2022-03-29] MEDS: Acetaminophen 650 MG/20 ML UDC 500 MG GT (21:38)
[2022-03-30] MEDS: BACLOFEN 5 MG/ML 20 MG PO ×5 (00:59→23:00)
[2022-03-30 03:00] VITALS: BP 108/75; PULSE 92; RESP 18; TEMP 37; O2SAT 90
[2022-03-30 04:45] LABS: Absolute Lymphocyte Count 2.25 X10^3/uL (0.83-4.51); Absolute Neutrophil Count 2.4 X10^3/uL (2.0-7.7); Basophil# 0.02 X10^3/uL; Basophil% 0.4 % (0-1); Eosinophil# 0.12 X10^3/uL; Eosinophils% 2.2 % (0-5); Hematocrit 31.6 % (40-54); Hemoglobin 9.7 g/dL (13.0-16.5); Lymphocyte # 2.25 X10^3/ul (0.83-4.51); Mean Corp Hgb Conc 30.7 g/dL (32-36); Mean Platelet Vol. 9.5 fl (6.2-12.0); Monocyte# 0.49 X10^3/uL; Monocyte% 9.1 % (0-10); NRBC Flagged by Analyzer 0 % (0-5); Neutrophil % 44.8 % (47-70); Platelet Count 206 K/mm3 (150-450); RBC Distribution Width CV 14.8 % (11.6-14.6); RBC Distribution Width SD 47.5 fl (35.1-43.9); Red Blood Count 3.59 M/mm3 (4.6-6.2); White Blood Count 5.4 K/mm3 (4.4-11.0)
[2022-03-30 05:02] LABS: ALB/GLOB Ratio 0.6 RATIO (0.9-2.4); AST(SGOT) 9 U/L (15-37); Alanine Aminotransfer ALT/SGPT 19 U/L (16-61); Albumin, Serum 2.7 g/dL (3.2-5.0); Alkaline Phosphatase 79 U/L (45-117); Anion Gap 8 (5-15); BUN 4 mg/dL (7-18); Calcium,Total 8.2 mg/dL (8.5-10.1); Chloride 112 mmol/L (98-107); Creatinine, Serum 0.21 mg/dL (0.70-1.30); EST Glomerular Filtration Rate 532 mL/min (>60); Est Glom Filt Rate - Afr Amer 644 mL/min (>60); Estimated Creatinine Clearance 521.16 ml/min; Globulin 4.5 g/dL (2.2-4.2); Glucose 96 mg/dL (74-106); Potassium 3.7 mmol/L (3.5-5.1); Protein, Total 7.2 g/dL (6.4-8.2); Sodium Level 146 mmol/L (136-145)
[2022-03-30] MEDS: Metoclopramide 10 MG/10 ML UDC 5 MG GT ×3 (06:27→21:23)
[2022-03-30] MEDS: Heparin Injection (Vial) 5,000 UNIT/ML VIAL 5000 UNIT SC ×3 (06:28→21:24)
[2022-03-30] MEDS: Menthol/Lanolin/Calamine/Znox 113 GM Tube 1 APPLIC TOPICAL ×3 (06:28→21:29)
[2022-03-30] MEDS: 0.9% Saline Lock 10 ML Syringe IV (06:29)
[2022-03-30 07:20] VITALS: O2SAT 92
--- NOTE | 2022-03-30 07:26 | PCM.PN.INT ---
Assessment & Plan Assessment/Plan (1) Chronic respiratory failure with hypoxia: (2) Aspiration into airway: PLAN: Plan RECOMMENDATIONS: 1. Continue antimicrobials per ID recommendations. 2. Wean oxygen as tolerated. 3. Continue vent support with SIMV per home regimen. 4. Continue antiemetics as needed. Restart tube feeds today and assess response. 5. Continue appropriate DVT prophylaxis. IMPRESSIONS: 1.??Acute on chronic hypoxic respiratory failure Clinical suspicion for mucous plugging in the setting of Proteus pneumonia as precipitating etiology for acute presentation.? Recommend continuing ventilatory support with SIMV per home regimen throughout the day and night.? Continue and microbial as ordered along with aggressive bronchopulmonary hygiene. There has been some concern with episodes of emesis, which appears to have resolved. Recommend continuing antiemetics and restart trophic tube feeds today. Continue to wean oxygen as tolerated. Continue as needed bronchodilator therapy. 2.??Cerebral palsy/spastic quadriplegia/seizure disorder/GERD/history of PE Complicates care, management, recovery and prognosis.? Okay to continue with baseline medications from my perspective.? This note was generated with [employer] dictation software. It may contain incorrect words, spelling, and punctuation that were not noted in checking the note before signing. Subjective Subjective The patient was seen and examined at the bedside this morning. Events from the last 24 hours have been reviewed. The patient is currently afebrile, hemodynamically stable and maintaining appropriate oxygen saturations on 4-6 liters per minute. The patient has required rather frequent suctioning over the last 24 hours. He did have an emesis event yesterday. However, no further episodes were noted overnight. Objective Data Objective Data The patient's most recent lab work, culture data and imaging studies have all been personally reviewed. Sputum culture dated March 24 was positive for Proteus mirabilis. Vital Signs: Vital Signs Temp Pulse Resp BP Pulse Ox O2 Del Method O2 Flow Rate 98.6 F 92 18 108/75 92 Mechanical Ventilator 6 03/30/22 03:00 03/30/22 03:00 03/30/22 03:00 03/30/22 03:00 03/30/22 07:20 03/30/22 03:00 03/30/22 07:20 Oxygen Flow Rate (L/min) 6 Oxygen Delivery Method Mechanical Ventilator Weight: 154 lb 1.65 oz Body Mass Index (BMI) 33.8 Intake & Output: Intake and Output for Last 24 Hours 03/28/22 03/29/22 03/30/22 23:59 23:59 23:59 Intake Total 670 / 670 390 / 390 120 / 120 Output Total 350 / 350 550 / 550 Balance 320 / 320 -160 / -160 120 / 120 Lab / Micro Data Attestation: I reviewed the patient's lab results. Result Diagrams: 03/30/22 04:40 03/30/22 04:40 Labs: Laboratory Results - last 24 hr 03/30/22 04:40: WBC 5.4, RBC 3.59 L, Hgb 9.7 L, Hct 31.6 L, MCV 88.0, MCH 27.0, MCHC 30.7 L, RDW Std Deviation 47.5 H, RDW Coeff of Emilee 14.8 H, Plt Count 206, MPV 9.5, Immature Gran % (Auto) 1.500 H, Neut % (Auto) 44.8 L, Lymph % (Auto) 42.0 H, [place] % (Auto) 9.1, Eos % (Auto) 2.2, Baso % (Auto) 0.4, Absolute Neuts (auto) 2.4, Absolute Lymphs (auto) 2.25, Nucleated RBC % 0 03/30/22 04:40: Sodium 146 H, Potassium 3.7, Chloride 112 H, Carbon Dioxide 26.0, Anion Gap 8, BUN 4 L, Creatinine 0.21 L, Estim Creat Clear Calc 521.16, Est GFR (MDRD) Af Amer 644, Est GFR (MDRD) Non-Af 532, BUN/Creatinine Ratio 19.0, Glucose 96, Calcium 8.2 L, Total Bilirubin 0.20, AST 9 L, ALT 19, Alkaline Phosphatase 79, Total Protein 7.2, Albumin 2.7 L, Globulin 4.5 H, Albumin/Globulin Ratio 0.6 L Micro: Microbiology 03/24/22 18:25 Blood Culture (Wb) - Port Blood Culture - Final No growth in 5 days. 03/24/22 17:40 Blood Culture (Wb) - Port Blood Culture - Final No growth in 5 days. 03/24/22 19:13 Sputum, Tracheal Aspirate Gram Stain - Final 03/24/22 19:13 Sputum, Tracheal Aspirate Respiratory Culture - Final Proteus mirabilis Streptococcus agalactiae (B) 03/24/22 22:42 Mucosa - Nasopharyngeal Respiratory Panel (PCR) - Final 03/24/22 20:50 Nasal Secretion SARS-CoV-2 & FLU Antigen (Rapid) - Final Radiography Diagnostic Testing: Radiology Impression Chest X-Ray 03/29/22 06:55 IMPRESSION: Decreased bibasilar atelectasis or inflammation. Unchanged mild linear upper lobe opacities. Electronically Signed: Jesenia Whitt MD at 10:21 EST , Abdomen/Pelvis CT 03/29/22 11:38 IMPRESSION: Mild left lower lobe atelectasis or aspiration pneumonitis. Mild fluid distention of colon suggesting enteritis. 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 No evidence of small bowel obstruction. Partial distal colectomy with chronic wall thickening and distention of rectal pouch. Other chronic findings as above. Electronically Signed: Jesenia Whitt MD at 12:53 EST , Rhythm Strip Rhythm Strip: Sinus Rhythm Rate: 89 Ectopy: None Physical Exam Const no apparent distress Constitutional Narrative: Quadriplegic male with baseline neurological status. Mother is present at the bedside. HEENT normocephalic and head/scalp atraumatic Eyes PERRL and EOMs intact bilaterally Neck supple Neck Narrative: Tracheostomy site stable General: trachea midline Chest inspection of chest normal Resp normal respiratory effort Auscultation: Negative for rales, rhonchi or wheezes Cardio S1 normal heart sound and S2 normal heart sound Rate: tachycardic GI normal to inspection, nondistended, normoactive bowel sounds Inspection: GI tube present Extremity Extremity Narrative: Contracted extremities Skin no rashes or lesions noted Neuro Neuro Narrative: Baseline neurological status with spastic quadriplegia Psych Mood & Affect: flat affect Charges/Coding Visit Charges Inpatient E&M: 78435 Subs Hosp L2
[2022-03-30] MEDS: Ascorbic Acid 500 MG Tablet GT (09:09)
[2022-03-30] MEDS: Cholecalciferol (VIT D3) 25 MCG TABLET (1,000 UNITS) 50 MCG GT (09:09)
[2022-03-30] MEDS: GABAPENTIN 250 MG/5 ML SOLUTION 500 MG GT ×4 (09:10→21:24)
[2022-03-30] MEDS: Phenobarbital 20 MG/5 ML UDC 60 MG GT ×2 (09:10→21:29)
[2022-03-30] MEDS: Doxazosin 1 MG Tablet 2 MG GT (09:10)
[2022-03-30] MEDS: Potassium Chloride Oral Soln 20 MEQ/15 ML UDC 40 MEQ PO (09:11)
[2022-03-30] MEDS: PLECANATIDE 3 MG TABLET PO (09:11)
[2022-03-30 09:30] VITALS: BP 128/82; PULSE 87; RESP 18; TEMP 37.2; O2SAT 93
[2022-03-30] MEDS: Ondansetron 4 MG/2 ML Vial IV (09:40)
[2022-03-30] MEDS: Jevity 1.5 1,000 ML 10 ML GT (11:32)
--- NOTE | 2022-03-30 11:54 | CASEMGMT ---
Addendum entered by Misael Rm 03/31/22 14:50: Mom states she did receive a call from [facility] and they are verifying insurance coverage for bed before arranging for delivery of bed. She states she has their phone number/contact info and will f/u with them, if needed. She denies having other discharge planning needs or concerns. Addendum entered by Misael Rm 03/31/22 11:24: Call placed to Cassie @ [facility]. She verifies the CMN was received and it will be reviewed by the cloth hand. She will call RN ANAYELI back if any additional information is needed. She states she will also call pt's parents/guardians to arrange delivery of bed, once everything is verified w/insurance. Addendum entered by Misael Rm 03/31/22 09:53: CMN for hospital bed signed by Dr Alexandre and faxed to [facility] at this time and also sent to [facility] via [employer]. Original Note: RE GUADALUPE NOTE: Spoke w/pt's mom, who states she has not heard from [facility] re: the hospital bed yet. RN CM placed call to [facility] and spoke w/Karrie. Per Karrie, they tried to contact someone on Fri to get CMN completed, but were informed the physician is a hospitalist and so they closed the referral and was going to have pt f/u with PCP. RE GUADALUPE informed Karrie CMN can be completed by hospitalist while pt @ [facility]. Karrie states will fax the CMN to this RN ANAYELI to have completed and they will re-open the referral. Janice BAL RN, CM
--- NOTE | 2022-03-30 12:48 | PCM.PN.ID ---
Physical Exam Narrative Mother at bedside, concern for aspiration, no fever Const no apparent distress Resp normal air movement and clear to auscultation bilaterally Cardio regular rate and regular rhythm GI soft to palpation, non-tender and non-distended Skin no rashes or lesions noted ID ID: Route of nutrition/ use of supplements: [] Nutritional Intake: [] IV Site: [] Augustin Catheter: [] Assessment & Plan Assessment/Plan (1) Sepsis: PLAN: Due to pneumonia. Sputum with GBS and proteus. Prior ho pseudomonas. 03/27/22 narrowed zosyn to ceftriaxone, plan on stopping tomorrow. Will follow (2) Cerebral palsy: (3) Chronic respiratory failure with hypoxia:
--- NOTE | 2022-03-30 12:59 | CPS ---
Per Dr Tavares, changed trach at bedside. VEGETABLE TRIMMER Terra and VEGETABLE TRIMMER Sasha at bedside. Bag set at 15 L and ready to be used if it was needed. No problems switching the trach out. Mom at bedside too.
--- NOTE | 2022-03-30 15:20 | PN.HOSP_ITS ---
Subjective Subjective Patient seen and examined. Parents were by his bedside. They were concerned because he required tracheostomy change; he was due to have a tracheostomy change today by ENT; however, he can;t have it because he is admitted. They want to know if he can have it done today. Review of systems is otherwise negative. Objective Data Objective Data Vital Signs: Vital Signs Temp Pulse Resp BP Pulse Ox O2 Del Method O2 Flow Rate 98.9 F 87 18 128/82 H 93 Mechanical Ventilator 5 03/30/22 09:30 03/30/22 09:30 03/30/22 09:30 03/30/22 09:30 03/30/22 09:30 03/30/22 09:30 03/30/22 09:30 Oxygen Flow Rate (L/min) 5 Oxygen Delivery Method Mechanical Ventilator Weight: 154 lb 1.65 oz Body Mass Index (BMI) 33.8 Intake & Output: Intake and Output for Last 24 Hours 03/28/22 03/29/22 03/30/22 23:59 23:59 23:59 Intake Total 670 / 670 390 / 390 310 / 310 Output Total 350 / 350 550 / 550 450 / 450 Balance 320 / 320 -160 / -160 -140 / -140 Medical Nutrition Assessment Dietitian: Malnutrition Criteria Met Start: 03/30/22 09:34 Freq: Status: Active Protocol: Document 03/30/22 09:34 LEONOR (Rec: 03/30/22 09:34 LEONOR [id number]) Nutrition Malnutrition Evidence of Malnutrition Exists Yes Malnutrition (severe): Acute Illness/Injury Evidenced By Suboptimal Energy Intake ( Severe),Weight Loss (Severe), Physical Changes (Mild) Clinical Problem Acute Disease or Injury Related Malnutrition Etiology severe acute malnutrition related to inadequate nutrition via PEG d/t issues w / projectile vomiting Signs/Symptoms as evidenced by pt only receiving trophic feeds x 2 days, then held d/t projectile vomiting and 10.7% wt loss since adm; fat loss in face per mom. Status Active Problem Swallowing Difficulty 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 Signs/Symptoms as evidenced by PEG tube status Status Active Problem Recommendation Dietitian Recommendations/Changes NPO Will order Jevity 1.5 trophic tf via PEG at 10 ml/hr with 30 ml water flush every 4 hours to provide 360 nery/ 15 gm pro/ 362 ml free water/day. (Goal via PEG is Jevity 1.5 at 50mL/hour w/125mL H2O flush every 4 hours to provide 1800 calories, 76.56 g protein, and 1662mL fluid/day.) Lab / Micro Data Result Diagrams: 03/30/22 04:40 03/30/22 04:40 Labs: Laboratory Results - last 24 hr 03/30/22 04:40: WBC 5.4, RBC 3.59 L, Hgb 9.7 L, Hct 31.6 L, MCV 88.0, MCH 27.0, MCHC 30.7 L, RDW Std Deviation 47.5 H, RDW Coeff of Emilee 14.8 H, Plt Count 206, MPV 9.5, Immature Gran % (Auto) 1.500 H, Neut % (Auto) 44.8 L, Lymph % (Auto) 42.0 H, [place] % (Auto) 9.1, Eos % (Auto) 2.2, Baso % (Auto) 0.4, Absolute Neuts (auto) 2.4, Absolute Lymphs (auto) 2.25, Nucleated RBC % 0 03/30/22 04:40: Sodium 146 H, Potassium 3.7, Chloride 112 H, Carbon Dioxide 26.0, Anion Gap 8, BUN 4 L, Creatinine 0.21 L, Estim Creat Clear Calc 521.16, Est GFR (MDRD) Af Amer 644, Est GFR (MDRD) Non-Af 532, BUN/Creatinine Ratio 19.0, Glucose 96, Calcium 8.2 L, Total Bilirubin 0.20, AST 9 L, ALT 19, Alkaline Phosphatase 79, Total Protein 7.2, Albumin 2.7 L, Globulin 4.5 H, Albumin/Globulin Ratio 0.6 L Micro: Microbiology 03/24/22 18:25 Blood Culture (Wb) - Port Blood Culture - Final No growth in 5 days. 03/24/22 17:40 Blood Culture (Wb) - Port Blood Culture - Final No growth in 5 days. 03/24/22 19:13 Sputum, Tracheal Aspirate Gram Stain - Final 03/24/22 19:13 Sputum, Tracheal Aspirate Respiratory Culture - Final Proteus mirabilis Streptococcus agalactiae (B) 03/24/22 22:42 Mucosa - Nasopharyngeal Respiratory Panel (PCR) - Final 03/24/22 20:50 Nasal Secretion SARS-CoV-2 & FLU Antigen (Rapid) - Final Rhythm Strip Rhythm Strip: Sinus Rhythm Rate: 89 Ectopy: None Physical Exam Const Constitutional Narrative: on home vent, noncommunicative. severe spastic cerebral palsy. HEENT head/scalp atraumatic and moist oral mucous membranes Head and Scalp: normocephalic Mouth: oral and palatal mucosa normal Eyes PERRL, EOMs intact bilaterally and conjunctivae normal Neck no lymphadenopathy and supple Resp Resp Narrative: diminished breath sounds bibasally, no wheezes or crackles. on home ventilator. Cardio regular rate, regular rhythm, S1 normal heart sound, S2 normal heart sound and no murmurs GI normal to inspection, nondistended, normoactive bowel sounds, soft to palpation and non-tender GI Narrative: PEG tube in place, colostomy bag in place Extremity Extremity Narrative: chronic contractures. Neuro Neuro Narrative: severe spastic cerebral palsy Assessment & Plan Assessment/Plan (1) Sepsis: (2) Aspiration into airway: (3) Chronic respiratory failure with hypoxia: PLAN: Plan #Septic shock due to aspiration pneumonia * cultures due to Proteus mirabilis and group B strp. * was on IV zosyn; de-escalaed to IV rocephin * being gently hydrated with IVF * ID on board. * sputum cultures grew gram negative rods. * blood cultures pending * #Persistent nausea and vomiting * KUB ruled out bowel obstruction * tube feeds wre held initially due to vomiting. * tube feeds resumed at 10cc/hr, with free water flushes q4hrly; usually he is on ~ 40cc/hr * #Chronic respiratory failure * on vent at home. * needs trach changed today; discussed with ENT surgeon Dr Henderson. ENT recommends that respiratory therapy changes the trach. * I discussed this with respiratory therapist; they are awaiting orders from ENT to change the trach. ENT informed. * #Cerebral palsy with spastic quadriplegia * on baclofen, gabapentin and ativan * #Seizure disorder: on phenobarbital, gabapentin and ativan #Chronic dysphagia * has PEG tube in place. * on tube feeds; tube feed restarted at 10cc/hr * DVT prophylaxis: heparin Charges/Coding Visit Charges Inpatient E&M: 35193 Subs Hosp L3 Reason for Visit Reason for Visit: Diagnoses Sepsis, unspecified organism (03/24/22) Cerebral palsy, unspecified (03/24/22) Chronic respiratory failure with hypoxia (03/24/22) Chronic respiratory failure with hypercapnia (03/24/22) Unspecified foreign body in respiratory tract, part unspecified causing other injury, initial encounter (03/24/22)
[2022-03-30 15:30] VITALS: BP 120/72; PULSE 87; RESP 17; TEMP 37.5; O2SAT 94
[2022-03-30 19:30] VITALS: PULSE 87; RESP 14; O2SAT 95
[2022-03-30 21:30] VITALS: BP 111/60; PULSE 50; RESP 14; TEMP 36.7; O2SAT 96
[2022-03-31 03:30] VITALS: BP 106/63; PULSE 80; RESP 15; TEMP 36.9; O2SAT 94
[2022-03-31] MEDS: 0.9% Saline Lock 10 ML Syringe IV (03:40)
[2022-03-31 03:49] LABS: Absolute Lymphocyte Count 2.55 X10^3/uL (0.83-4.51); Absolute Neutrophil Count 3.1 X10^3/uL (2.0-7.7); Basophil# 0.02 X10^3/uL; Basophil% 0.3 % (0-1); Hematocrit 31.6 % (40-54); Hemoglobin 9.5 g/dL (13.0-16.5); Lymphocyte # 2.55 X10^3/ul (0.83-4.51); Lymphocyte % 38.6 % (19-41); Mean Corp Hgb Conc 30.1 g/dL (32-36); Mean Corpuscular Hgb 26.9 pg (27.0-32.0); Mean Corpuscular Volume 89.5 fL (80-94); Mean Platelet Vol. 9.8 fl (6.2-12.0); Monocyte# 0.55 X10^3/uL; Monocyte% 8.3 % (0-10); NRBC Flagged by Analyzer 0 % (0-5); Neutrophil # 3.14 X10^3/uL (2.7-7.7); Neutrophil % 47.7 % (47-70); Platelet Count 240 K/mm3 (150-450); RBC Distribution Width CV 15.2 % (11.6-14.6); RBC Distribution Width SD 49.2 fl (35.1-43.9); Red Blood Count 3.53 M/mm3 (4.6-6.2); White Blood Count 6.6 K/mm3 (4.4-11.0)
[2022-03-31 04:03] LABS: Anion Gap 7 (5-15); BUN 5 mg/dL (7-18); BUN/Creat Ratio 20.2 RATIO (10-20); Calcium,Total 8.4 mg/dL (8.5-10.1); Chloride 112 mmol/L (98-107); Creatinine, Serum 0.25 mg/dL (0.70-1.30); EST Glomerular Filtration Rate 439 mL/min (>60); Est Glom Filt Rate - Afr Amer 532 mL/min (>60); Estimated Creatinine Clearance 388.33 ml/min; Glucose 90 mg/dL (74-106); Potassium 3.6 mmol/L (3.5-5.1); Sodium Level 146 mmol/L (136-145)
[2022-03-31] MEDS: Menthol/Lanolin/Calamine/Znox 113 GM Tube 1 APPLIC TOPICAL ×3 (05:53→21:59)
[2022-03-31] MEDS: Heparin Injection (Vial) 5,000 UNIT/ML VIAL 5000 UNIT SC ×3 (05:53→22:01)
[2022-03-31] MEDS: Metoclopramide 10 MG/10 ML UDC 5 MG GT ×3 (05:53→21:57)
[2022-03-31] MEDS: BACLOFEN 5 MG/ML 20 MG PO ×3 (05:57→16:45)
--- NOTE | 2022-03-31 07:13 | PN.CC_ITS ---
Assessment & Plan Assessment/Plan (1) Chronic respiratory failure with hypoxia: (2) Aspiration into airway: PLAN: Plan RECOMMENDATIONS: 1. Continue antimicrobials per ID recommendations. 2. Wean oxygen as tolerated. 3. Continue vent support with SIMV per home regimen. 4. Continue antiemetics as needed. Increase tube feed infusion rate as tolerated. 5. Continue appropriate DVT prophylaxis. 6. Will sign off from a critical care perspective. Please call with any additional questions. IMPRESSIONS: 1.??Acute on chronic hypoxic respiratory failure Clinical suspicion for mucous plugging in the setting of Proteus pneumonia as precipitating etiology for acute presentation.? Recommend continuing ventilatory support with SIMV per home regimen throughout the day and night.? Continue and microbial as ordered along with aggressive bronchopulmonary hygiene. There has been some concern with episodes of emesis, which appears to have resolved. Recommend continuing antiemetics and tube feeds as tolerated. Continue to wean oxygen as tolerated. Continue as needed bronchodilator therapy. Given overall stability in the patient's respiratory status, will sign off at this time. The patient should follow-up in the pulmonary medicine clinic with Dr. Monsalve as scheduled in May. 2.??Cerebral palsy/spastic quadriplegia/seizure disorder/GERD/history of PE Complicates care, management, recovery and prognosis.? Okay to continue with baseline medications from my perspective.? This note was generated with [employer] dictation software. It may contain incorrect words, spelling, and punctuation that were not noted in checking the note before signing. Subjective Subjective The patient was seen and examined at the bedside this morning. Events from the last 24 hours have been reviewed. The patient is currently afebrile, hemodynamically stable and maintaining appropriate oxygen saturations on 4 L/min. The patient has been tolerant of trophic tube feeds. No further emesis events have been reported. Labs are stable this morning. Objective Data Objective Data The patient's most recent lab work, culture data and imaging studies have all been personally reviewed. Sputum culture dated March 24 was positive for Proteus mirabilis. Vital Signs: Vital Signs Temp Pulse Resp BP Pulse Ox O2 Del Method O2 Flow Rate 98.4 F 80 15 106/63 94 Mechanical Ventilator 4 03/31/22 03:30 03/31/22 03:30 03/31/22 03:30 03/31/22 03:30 03/31/22 03:30 03/31/22 04:00 03/31/22 04:00 Oxygen Flow Rate (L/min) 4 Oxygen Delivery Method Mechanical Ventilator Weight: 168 lb 3.403 oz Body Mass Index (BMI) 33.8 Intake & Output: Intake and Output for Last 24 Hours 03/29/22 03/30/22 03/31/22 23:59 23:59 23:59 Intake Total 390 / 390 650 / 650 60 / 60 Output Total 550 / 550 700 / 700 100 / 100 Balance -160 / -160 -50 / -50 -40 / -40 Medical Nutrition Assessment Dietitian: Malnutrition Criteria Met Start: 03/30/22 0 9:34 Freq: Status: Active Protocol: Document 03/30/22 09:34 LEONOR (Rec: 03/30/22 09:34 LEONOR [id number]) Nutrition Malnutrition Evidence of Malnutrition Exists Yes Malnutrition (severe): Acute Illness/Injury Evidenced By Suboptimal Energy Intake ( Severe),Weight Loss (Severe), Physical Changes (Mild) Clinical Problem Acute Disease or Injury Related Malnutrition Etiology severe acute malnutrition related to inadequate nutrition via PEG d/t issues w / projectile vomiting Signs/Symptoms as evidenced by pt only receiving trophic feeds x 2 days, then held d/t projectile vomiting and 10.7% wt loss since adm; fat loss in face per mom. Status Active Problem Swallowing Difficulty 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 Signs/Symptoms as evidenced by PEG tube status Status Active Problem Recommendation Dietitian Recommendations/Changes NPO Will order Jevity 1.5 trophic tf via PEG at 10 ml/hr with 30 ml water flush every 4 hours to provide 360 nery/ 15 gm pro/ 362 ml free water/day. (Goal via PEG is Jevity 1.5 at 50mL/hour w/125mL H2O flush every 4 hours to provide 1800 calories, 76.56 g protein, and 1662mL fluid/day.) Lab / Micro Data Attestation: I reviewed the patient's lab results. Result Diagrams: 03/31/22 03:43 03/31/22 03:43 Labs: Laboratory Results - last 24 hr 03/31/22 03:43: WBC 6.6, RBC 3.53 L, Hgb 9.5 L, Hct 31.6 L, MCV 89.5, MCH 26.9 L , MCHC 30.1 L, RDW Std Deviation 49.2 H, RDW Coeff of Emilee 15.2 H, Plt Count 240, MPV 9.8, Immature Gran % (Auto) 2.100 H, Neut % (Auto) 47.7, Lymph % (Auto) 38.6, [place] % (Auto) 8.3, Eos % (Auto) 3.0, Baso % (Auto) 0.3, Absolute Neuts (auto) 3.1, Absolute Lymphs (auto) 2.55, Nucleated RBC % 0 03/31/22 03:43: Sodium 146 H, Potassium 3.6, Chloride 112 H, Carbon Dioxide 27.0, Anion Gap 7, BUN 5 L, Creatinine 0.25 L, Estim Creat Clear Calc 388.33, Est GFR (MDRD) Af Amer 532, Est GFR (MDRD) Non-Af 439, BUN/Creatinine Ratio 20.2 H, Glucose 90, Calcium 8.4 L Micro: Microbiology 03/24/22 18:25 Blood Culture (Wb) - Port Blood Culture - Final No growth in 5 days. 03/24/22 17:40 Blood Culture (Wb) - Port Blood Culture - Final No growth in 5 days. 03/24/22 19:13 Sputum, Tracheal Aspirate Gram Stain - Final 03/24/22 19:13 Sputum, Tracheal Aspirate Respiratory Culture - Final Proteus mirabilis Streptococcus agalactiae (B) 03/24/22 22:42 Mucosa - Nasopharyngeal Respiratory Panel (PCR) - Final 03/24/22 20:50 Nasal Secretion SARS-CoV-2 & FLU Antigen (Rapid) - Final Radiography Diagnostic Testing: Radiology Impression Chest X-Ray 03/29/22 06:55 IMPRESSION: Decreased bibasilar atelectasis or inflammation. Unchanged mild linear upper lobe opacities. Electronically Signed: Jesenia Whitt MD at 10:21 EST , Abdomen/Pelvis CT 03/29/22 11:38 IMPRESSION: Mild left lower lobe atelectasis or aspiration pneumonitis. Mild fluid distention of colon suggesting enteritis. 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 No evidence of small bowel obstruction. Partial distal colectomy with chronic wall thickening and distention of rectal pouch. Other chronic findings as above. Electronically Signed: Jesenia Whitt MD at 12:53 EST , Rhythm Strip Rhythm Strip: Sinus Rhythm Rate: 89 Ectopy: None Physical Exam Const no apparent distress Constitutional Narrative: Quadriplegic male with baseline neurological status. Mother is present at the bedside. HEENT normocephalic and head/scalp atraumatic Eyes PERRL and EOMs intact bilaterally Neck supple Neck Narrative: Tracheostomy site stable General: trachea midline Chest inspection of chest normal Resp normal respiratory effort Auscultation: Negative for rales, rhonchi or wheezes Cardio S1 normal heart sound and S2 normal heart sound Rate: tachycardic GI normal to inspection, nondistended, normoactive bowel sounds Inspection: GI tube present Extremity Extremity Narrative: Contracted extremities Skin no rashes or lesions noted Neuro Neuro Narrative: Baseline neurological status with spastic quadriplegia Psych Mood & Affect: flat affect Charges/Coding Visit Charges Inpatient E&M: 52797 Subs Hosp L2
[2022-03-31 09:30] VITALS: BP 121/79; PULSE 93; RESP 16; TEMP 37; O2SAT 94
[2022-03-31] MEDS: PLECANATIDE 3 MG TABLET PO (09:58)
[2022-03-31] MEDS: GABAPENTIN 250 MG/5 ML SOLUTION 500 MG GT ×4 (09:58→21:59)
[2022-03-31] MEDS: Phenobarbital 20 MG/5 ML UDC 60 MG GT ×2 (09:58→21:59)
[2022-03-31] MEDS: Ascorbic Acid 500 MG Tablet GT (09:59)
[2022-03-31] MEDS: Doxazosin 1 MG Tablet 2 MG GT (09:59)
[2022-03-31] MEDS: Cholecalciferol (VIT D3) 25 MCG TABLET (1,000 UNITS) 50 MCG GT (09:59)
--- NOTE | 2022-03-31 10:25 | PCM.PN.ID ---
Physical Exam Narrative Doing ok, mother at bedside, no fever, tube feeds running Const no apparent distress Resp normal air movement and clear to auscultation bilaterally Cardio regular rate and regular rhythm GI soft to palpation, non-tender and non-distended Skin no rashes or lesions noted ID ID: Route of nutrition/ use of supplements: [] Nutritional Intake: [] IV Site: [] Augustin Catheter: [] Assessment & Plan Assessment/Plan (1) Sepsis: PLAN: Due to pneumonia. Sputum with GBS and proteus. Prior ho pseudomonas. 03/27/22 narrowed zosyn to ceftriaxone, plan on stopping today. Will follow as needed, please call with any new issues (2) Cerebral palsy: (3) Chronic respiratory failure with hypoxia:
--- NOTE | 2022-03-31 12:08 | CHAPLAIN ---
Type of Pastoral Visit _x__ Initial Visit ___ Follow-up Visit ___ On-call Visit ___ General Patient Visit ___ Spiritual Assessment ___ Family Conference ___ Bereavement ___ Rapid Response ___ Code Blue ___ Other (describe below) Pastoral Care Referral From ___ Patient _x__ Family _x__ Nurse ___ Physician ___ Linen Attendant ___ Linotypist ___ Other (describe below) Sacrament/Intervention _x__ Active listening ___ Anointing ___ Worship ___ Bereavement ___ Communion ___ Sandra exploration ___ ___ Life review _x__ Prayer ___ Reconciliation ___ Sacrament of Sick _x__ Supportive presence ___ Wedding ___ Other (describe below) Pastoral Comments patient has been seen many times in previous admissions; pt is non verbal; mother of pt is in the room and does give updates on pt; pt is expected to be discharged soon; mother is hopeful for return to some normal; mother welcomes prayer and presence
--- NOTE | 2022-03-31 14:42 | PN.HOSP_ITS ---
Reason for Visit Reason for Visit: Diagnoses Sepsis, unspecified organism (03/24/22) Cerebral palsy, unspecified (03/24/22) Chronic respiratory failure with hypoxia (03/24/22) Chronic respiratory failure with hypercapnia (03/24/22) Unspecified foreign body in respiratory tract, part unspecified causing other injury, initial encounter (03/24/22) Subjective Subjective Patient seen and examined. Mother was by his bedside. She had no concerns ab out from his tube feeds being increased. He was currently on 10 mils per hour with a target of 150 cc/h. Antibiotics to be discontinued today. Objective Data Objective Data Vital Signs: Vital Signs Temp Pulse Resp BP Pulse Ox O2 Del Method O2 Flow Rate 98.6 F 93 16 121/79 H 94 Mechanical Ventilator 4 03/31/22 09:30 03/31/22 09:30 03/31/22 09:30 03/31/22 09:30 03/31/22 09:30 03/31/22 11:17 03/31/22 11:17 Oxygen Flow Rate (L/min) 4 Oxygen Delivery Method Mechanical Ventilator Weight: 168 lb 3.403 oz Body Mass Index (BMI) 33.8 Intake & Output: Intake and Output for Last 24 Hours 03/29/22 03/30/22 03/31/22 23:59 23:59 23:59 Intake Total 390 / 390 650 / 650 250 / 250 Output Total 550 / 550 700 / 700 400 / 400 Balance -160 / -160 -50 / -50 -150 / -150 Medical Nutrition Assessment Dietitian: Malnutrition Criteria Met Start: 03/30/22 09:34 Freq: Status: Active Protocol: Document 03/31/22 08:14 (Rec: 03/31/22 08:14 [id number]) Nutrition Malnutrition Evidence of Malnutrition Exists No Clinical Problem Acute Disease or Injury Related Malnutrition Status Inactive Problem Swallowing Difficulty 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 Signs/Symptoms as evidenced by PEG tube status Status Active Problem Lab / Micro Data Result Diagrams: 03/31/22 03:43 03/31/22 03:43 Labs: Laboratory Results - last 24 hr 03/31/22 03:43: WBC 6.6, RBC 3.53 L, Hgb 9.5 L, Hct 31.6 L, MCV 89.5, MCH 26.9 L , MCHC 30.1 L, RDW Std Deviation 49.2 H, RDW Coeff of Emilee 15.2 H, Plt Count 240, MPV 9.8, Immature Gran % (Auto) 2.100 H, Neut % (Auto) 47.7, Lymph % (Auto) 38.6, [place] % (Auto) 8.3, Eos % (Auto) 3.0, Baso % (Auto) 0.3, Absolute Neuts (auto) 3.1, Absolute Lymphs (auto) 2.55, Nucleated RBC % 0 03/31/22 03:43: Sodium 146 H, Potassium 3.6, Chloride 112 H, Carbon Dioxide 27.0, Anion Gap 7, BUN 5 L, Creatinine 0.25 L, Estim Creat Clear Calc 388.33, Est GFR (MDRD) Af Amer 532, Est GFR (MDRD) Non-Af 439, BUN/Creatinine Ratio 20.2 H, Glucose 90, Calcium 8.4 L Micro: Microbiology 03/24/22 18:25 Blood Culture (Wb) - Port Blood Culture - Final No growth in 5 days. 03/24/22 17:40 Blood Culture (Wb) - Port Blood Culture - Final No growth in 5 days. 03/24/22 19:13 Sputum, Tracheal Aspirate Gram Stain - Final 03/24/22 19:13 Sputum, Tracheal Aspirate Respiratory Culture - Final Proteus mirabilis Streptococcus agalactiae (B) 03/24/22 22:42 Mucosa - Nasopharyngeal Respiratory Panel (PCR) - Final 03/24/22 20:50 Nasal Secretion SARS-CoV-2 & FLU Antigen (Rapid) - Final Rhythm Strip Rhythm Strip: Sinus Rhythm Rate: 89 Ectopy: None Physical Exam Const Constitutional Narrative: on home vent, noncommunicative. severe spastic cerebral palsy. HEENT head/scalp atraumatic and moist oral mucous membranes Eyes PERRL, EOMs intact bilaterally and conjunctivae normal Neck no lymphadenopathy and supple Resp Resp Narrative: diminished breath sounds bibasally, no wheezes or crackles. on home ventilator. Cardio regular rate, regular rhythm, S1 normal heart sound, S2 normal heart sound and no murmurs GI normal to inspection, nondistended, normoactive bowel sounds, soft to palpation and non-tender GI Narrative: PEG tube in place, colostomy bag in place Extremity Extremity Narrative: chronic contractures. Neuro Neuro Narrative: severe spastic cerebral palsy Assessment & Plan Assessment/Plan (1) Sepsis: (2) Aspiration into airway: (3) Chronic respiratory failure with hypoxia: PLAN: Plan #Septic shock due to aspiration pneumonia * cultures due to Proteus mirabilis and group B strp. * was on IV zosyn; de-escalated to IV rocephin; antibiotics discontinued today. * ID on board. * sputum cultures grew gram negative rods. * blood cultures pending * #Persistent nausea and vomiting * KUB ruled out bowel obstruction * tube feeds wre held initially due to vomiting. * tube feeds resumed at 10cc/hr, with free water flushes q4hrly; usually he is on ~50cc/hr. Tube feeds to be increased to target goal of 50cc/hr. * #Chronic respiratory failure * on vent at home. * vent changed yesterday by respiratory therapist. * * #Cerebral palsy with spastic quadriplegia * on baclofen, gabapentin and ativan * #Seizure disorder: on phenobarbital, gabapentin and ativan #Chronic dysphagia * has PEG tube in place. * on tube feeds; tube feeds to be increased to goal of 50cc/hr * DVT prophylaxis: heparin Disposition: for dc home with home health tomorrow once tube feeds are at target goal Charges/Coding Visit Charges Inpatient E&M: 62448 Subs Hosp L2
[2022-03-31 15:30] VITALS: BP 129/80; PULSE 96; RESP 18; TEMP 36.9; O2SAT 96
[2022-03-31 20:46] VITALS: BP 145/87; PULSE 92; RESP 18; TEMP 37.1; O2SAT 94
[2022-04-01] MEDS: BACLOFEN 5 MG/ML 20 MG PO ×2 (00:06→04:54)
[2022-04-01 03:00] VITALS: BP 108/69; PULSE 73; RESP 18; TEMP 36.5; O2SAT 95
[2022-04-01 03:37] LABS: Absolute Lymphocyte Count 2.64 X10^3/uL (0.83-4.51); Absolute Neutrophil Count 3.1 X10^3/uL (2.0-7.7); Basophil# 0.01 X10^3/uL; Basophil% 0.2 % (0-1); Eosinophil# 0.14 X10^3/uL; Eosinophils% 2.1 % (0-5); Hematocrit 29.5 % (40-54); Hemoglobin 9.2 g/dL (13.0-16.5); Lymphocyte # 2.64 X10^3/ul (0.83-4.51); Lymphocyte % 39.9 % (19-41); Mean Corp Hgb Conc 31.2 g/dL (32-36); Mean Corpuscular Hgb 27.6 pg (27.0-32.0); Mean Corpuscular Volume 88.6 fL (80-94); Mean Platelet Vol. 9.6 fl (6.2-12.0); Monocyte# 0.66 X10^3/uL; NRBC Flagged by Analyzer 0 % (0-5); Neutrophil # 3.09 X10^3/uL (2.7-7.7); Neutrophil % 46.7 % (47-70); Platelet Count 237 K/mm3 (150-450); RBC Distribution Width SD 48.4 fl (35.1-43.9); Red Blood Count 3.33 M/mm3 (4.6-6.2); White Blood Count 6.6 K/mm3 (4.4-11.0)
[2022-04-01 04:17] LABS: Anion Gap 6 (5-15); BUN 10 mg/dL (7-18); BUN/Creat Ratio 43.7 RATIO (10-20); Calcium,Total 8.2 mg/dL (8.5-10.1); Chloride 110 mmol/L (98-107); Creatinine, Serum 0.23 mg/dL (0.70-1.30); EST Glomerular Filtration Rate 482 mL/min (>60); Est Glom Filt Rate - Afr Amer 583 mL/min (>60); Glucose 122 mg/dL (74-106); Potassium 3.5 mmol/L (3.5-5.1); Sodium Level 145 mmol/L (136-145)
[2022-04-01] MEDS: Metoclopramide 10 MG/10 ML UDC 5 MG GT (04:54)
[2022-04-01] MEDS: 0.9% Saline Lock 10 ML Syringe IV ×3 (04:54→11:01)
[2022-04-01] MEDS: Menthol/Lanolin/Calamine/Znox 113 GM Tube 1 APPLIC TOPICAL (04:54)
[2022-04-01] MEDS: Heparin Injection (Vial) 5,000 UNIT/ML VIAL 5000 UNIT SC (04:55)
[2022-04-01] MEDS: Jevity 1.5 1,000 ML 50 ML GT (05:33)
[2022-04-01 09:00] VITALS: BP 117/90; PULSE 88; RESP 20; TEMP 37.3; O2SAT 96
[2022-04-01] MEDS: Ascorbic Acid 500 MG Tablet GT (09:34)
[2022-04-01] MEDS: Cholecalciferol (VIT D3) 25 MCG TABLET (1,000 UNITS) 50 MCG GT (09:34)
[2022-04-01] MEDS: PLECANATIDE 3 MG TABLET PO (09:35)
[2022-04-01] MEDS: Doxazosin 1 MG Tablet 2 MG GT (09:35)
[2022-04-01] MEDS: GABAPENTIN 250 MG/5 ML SOLUTION 500 MG GT (09:48)
[2022-04-01] MEDS: Phenobarbital 20 MG/5 ML UDC 60 MG GT (09:56)
--- NOTE | 2022-04-01 10:31 | DCINST_ITS ---
Discharge Instructions Diet Discharge Diet: - (tube feed) Activity Discharge Activity: Return to Normal Activity Weight Bearing Status: No weight bearing Dressing / Incision Call your doctor if you observe: Fever of 101 or Higher, Shortness of breath and Dizziness Follow Up Care Test Results: Test results from this visit will be discussed in further detail at your follow- up appointment, if applicable. Discharge Plan Admission Admit Date/Time: 03/24/22 20:02 Primary Reason for Your Visit: septic shock due to pneumonia Attending Provider: Cindy Alexandre Primary Care Provider: Timmy Conn Consulting Providers: Fiona Echavarria ; Jacek Monsalve ; Yovanny Moreira ; Armando Plaza ; John Tolentino ; Valarie Kee NP ; Roberto Hathaway ; Luis Simon ; Lucia Dillard ; Luis Carlos Henderson Instructions Patient Instructions: Sepsis, ED Pneumonia (Adult) Discharge Orders/Prescriptions Prescriptions: Continued albuterol sulfate 2.5 mg /3 mL (0.083 %) solution for nebulization 2.5 mg inhalation Q4H PRN (Reason: Sob &/Or Wheezing) esomeprazole magnesium [Nexium Packet] [address] for susp in packet 40 mg G-tube BID famotidine [Pepcid] 20 mg tablet 20 mg feeding tube LUNCH Rx Instructions: per NG simethicone 40 mg/0.6 mL drops,suspension 40 mg G-tube PRN PRN (Reason: GAS) Label Comments: gas metoclopramide HCl 5 mg/5 mL solution 5 mg feeding tube TID Label Comments: stomach phenobarbital 20 MG/5 ML elixir 60 mg G-tube 5X/DAY Label Comments: 20 mg/5 Lactobacillus acidophilus 1 EACH capsule 1 cap G-tube DAILY lorazepam 1 MG tablet 2 mg G-tube Q8 PRN (Reason: Agitation) Label Comments: TAKE ONE TABLET BY MOUTH THREE TIMES DAILY NEEDED ferrous sulfate 15 MG/ML drops 75 mg G-tube DAILY Cough Assist 1 dose .Route .MEDSUPPLY Rx Instructions: Inspiratory and Expiratory times of 20-40 seconds with a 1-2 second pause. oxygen concentrator 1 dose .Route .MEDSUPPLY Rx Instructions: As directed ondansetron HCl 4 MG tablet 5 ml feeding tube DAILY PRN (Reason: Nausea) baclofen 5 mg/5 mL solution 20 mg G-tube Q6H lactose-reduced food with fibr 0.06 gram-1.2 kcal/mL liquid 1,000 ml G-tube DAILY Rx Instructions: 50 ml/hr continuous ascorbic acid (vitamin C) 500 MG/5 ML syrup 500 mg G-tube DAILY Rx Instructions: take this medication with the iron supplement gabapentin 250 MG/5 ML solution 500 mg G-tube 4X/DAY plecanatide 3 mg tablet 3 mg GT DAILY doxazosin 2 mg tablet 2 mg GT DAILY cholecalciferol (vitamin D3) 10 mcg/mL (400 unit/mL) drops 50 mcg feeding tube DAILY Label Comments: GIVE 0.75ML VIA G-TUBEYONCE DAILY guaifenesin 200 mg/5 mL liquid 200 mg feeding tube Q6H PRN (Reason: Cough) Referrals / Follow Up: Timmy Conn MD [Primary Care Provider] - Within 2 Weeks Disposition Disposition (needs filled in before D/C Order can be placed): Home Health Service
--- NOTE | 2022-04-01 10:35 | PCM.DC.SUM ---
Providers Date of Admission: 03/24/22 Date of Discharge: 04/01/22 Primary Care Physician: Dr. Timmy Conn MD Consultations 03/24/22 21:33 Consult: Sports Coordinator / Pulmonary Medicine Routine Consulting Provider: Pulmonary Medicine brian [place] Reason for Consult: Sepsis/aspiration pneumonia EMERGENT Consult: No Notified: Yes Date Notified: 03/24/22 Time Notified: 21:08 Method of Notification: Text 03/26/22 15:04 Consult: Infectious Disease Routine Consulting Provider: Roberto Hathaway Reason for Consult: cerebral palsy, hx recurrent PNA leading to sepsis, presently polymicrobial EMERGENT Consult: No MD Notified: Yes Date Notified: 03/26/22 Time Notified: 16:04 Method of Notification: Text 03/29/22 09:04 Consult: General Surgery Routine Consulting Provider: Luis Simon Reason for Consult: Vomiting, unable to tolerate tube feed EMERGENT Consult: No MD Notified: Yes Date Notified: 03/29/22 Time Notified: 09:04 Method of Notification: Text 03/30/22 11:34 Consult: ENT Routine Consulting Provider: Luis Carlos Henderson Reason for Consult: tracheostomy change, family request EMERGENT Consult: No Notified: Yes Date Notified: 03/30/22 Time Notified: 11:34 Method of Notification: Verbal Reason For Visit: SEPSIS Diagnosis Discharge Diagnosis (1) Sepsis: Status: Acute Code(s): A41.9 - Sepsis, unspecified organism (2) Aspiration into airway: Status: Acute Code(s): T17.908A - Unspecified foreign body in respiratory tract, part unspecified causing other injury, initial encounter (3) Chronic respiratory failure with hypoxia: Status: Chronic Code(s): J96.11 - Chronic respiratory failure with hypoxia Plan #Septic shock due to aspiration pneumonia cultures due to Proteus mirabilis and group B strp. was on IV zosyn; de-escalated to IV rocephin; antibiotics discontinued today. ID on board. sputum cultures grew gram negative rods. blood cultures pending #Persistent nausea and vomiting KUB ruled out bowel obstruction tube feeds wre held initially due to vomiting. tube feeds resumed at 10cc/hr, with free water flushes q4hrly; usually he is on ~50cc/hr. Tube feeds to be increased to target goal of 50cc/hr. #Chronic respiratory failure on vent at home. vent changed yesterday by respiratory therapist. #Cerebral palsy with spastic quadriplegia on baclofen, gabapentin and ativan #Seizure disorder: on phenobarbital, gabapentin and ativan #Chronic dysphagia has PEG tube in place. on tube feeds; tube feeds to be increased to goal of 50cc/hr DVT prophylaxis: heparin Disposition: for dc home with home health tomorrow once tube feeds are at target goal Medications at Discharge Home Medications phenobarbital 20 mg/5 mL (4 mg/mL) oral elixir 60 mg G-tube 5X/DAY pain 02/19/17 Lactobacillus acidophilus 1 cap G-tube DAILY gut health 02/04/18 metoclopramide HCl 5 mg/5 mL oral solution 5 mg feeding tube TID thrush 09/16/18 lorazepam 1 mg tablet 2 mg G-tube Q8 PRN Agitation 10/08/18 Cough Assist 1 dose .Route .MEDSUPPLY assist in clearing secretions 12/25/18 ferrous sulfate 15 mg iron (75 mg)/mL oral drops 75 mg G-tube DAILY supplement 12/25/18 oxygen concentrator 1 dose .Route .MEDSUPPLY second unit, 4 LPM cont all modalities 12/25/18 ondansetron HCl 4 mg tablet 5 ml feeding tube DAILY PRN Nausea 05/09/19 ascorbic acid (vitamin C) 500 mg/5 mL oral syrup 500 mg G-tube DAILY Check with primary doctor 08/04/19 gabapentin 250 mg/5 mL oral solution 500 mg G-tube 4X/DAY Check with primary doctor 09/26/19 albuterol sulfate 2.5 mg/3 mL (0.083 %) solution for nebulization 2.5 mg inhalation Q4H PRN Sob &/Or Wheezing 11/27/20 baclofen 5 mg/5 mL oral solution 20 mg G-tube Q6H Spasticity 11/27/20 esomeprazole magnesium 40 mg granules delayed release for susp (Nexium Packet) 40 mg G-tube BID Check with primary doctor 11/27/20 famotidine 20 mg tablet (Pepcid) 20 mg feeding tube LUNCH Check with primary doctor 11/27/20 lactose-reduced food with fiber 0.06 gram-1.2 kcal/mL oral liquid 1,000 ml G-tube DAILY Check with primary doctor 11/27/20 plecanatide 3 mg tablet 3 mg G-tube DAILY Check with primary doctor 11/27/20 simethicone 40 mg/0.6 mL oral drops,suspension 40 mg G-tube PRN PRN GAS 11/27/20 doxazosin 2 mg tablet 2 mg PO DAILY Check with primary doctor 11/30/21 cholecalciferol (vitamin D3) 10 mcg/mL (400 unit/mL) oral drops 50 mcg feeding tube DAILY vitiamin 03/24/22 guaifenesin 200 mg/5 mL oral liquid 200 mg feeding tube Q6H PRN Cough 03/24/22 Hospital Course Operations None Procedures None Summary of Care Provided Minutes Spent on Discharge: 55 Hospital Course: Patient is a 42-year-old male with an extensive past medical history as above which includes cerebral palsy with spastic quadriplegia, chronic hypoxic respiratory failure on home vent support. He was admitted with a complaint of fever and tachycardia. History was obtained from his parents. Patient had been tachycardic for several days and also had increased work of breathing on the day of admission with associated fever. Patient had also had several episodes of vomiting. COVID test done at home was negative. Temperature in the ED peaked at 105 Fahrenheit. In the ED he was tachycardic and tachypneic as well as febrile. Lactic acid was elevated at 2.7. WBC was 7.5. Chest x-ray showed elevated right hemidiaphragm with mild basilar atelectasis. KUB of the abdomen showed no acute abdominal pathology. He was admitted and managed for severe sepsis due to aspiration pneumonia and probable early ventilator assisted pneumonia. He was started on IV Zosyn. Blood cultures were obtained. Sports Coordinator was consulted. His tube feeds were initially held due to concerns about vomiting. Infectious disease was also consulted. General surgery was consulted due to concerns about possible intestinal obstruction but this was ruled out by general surgery. Sputum cultures grew group B strep and Proteus. Antibiotics were narrowed down from Zosyn to ceftriaxone on 03/27/2022 and completed a course of antibiotics on 03/31/2022. His tube feeds were also resumed and states gradually increased to his target rate of 50 cc/h. He did not have any vomiting with this. He was discharged home on 04/01/2022 and is follow-up with his primary care doctor within 1 to 2 weeks. Patient seen and examined prior to discharge. He had no active complaints and had an uneventful night. Review of symptoms otherwise negative. Labs vitals reviewed. Home medication reviewed and reconciled. Physical Exam Const Constitutional Narrative: on home vent, noncommunicative. severe spastic cerebral palsy. HEENT head/scalp atraumatic and moist oral mucous membranes HEENT Narrative: macroglossia Eyes PERRL, EOMs intact bilaterally and conjunctivae normal Neck no lymphadenopathy and supple Resp Resp Narrative: diminished breath sounds bibasally, no wheezes or crackles. on home ventilator. Cardio regular rate, regular rhythm, S1 normal heart sound, S2 normal heart sound and no murmurs GI normal to inspection, nondistended, normoactive bowel sounds, soft to palpation and non-tender GI Narrative: PEG tube in place, colostomy bag in place Extremity Extremity Narrative: chronic contractures of extremities Neuro Neuro Narrative: severe spastic cerebral palsy Medical Records Data Medical Nutrition Assessment Dietitian: Malnutrition Criteria Met Start: 03/30/22 09:34 Freq: Status: Active Protocol: Document 03/31/22 08:14 (Rec: 03/31/22 08:14 [id number]) Nutrition Malnutrition Evidence of Malnutrition Exists No Clinical Problem Acute Disease or Injury Related Malnutrition Status Inactive Problem Swallowing Difficulty 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1, Absolute Lymphs (auto) 2.64, Nucleated RBC % 0 04/01/22 03:30: Sodium 145, Potassium 3.5, Chloride 110 H, Carbon Dioxide 29.0, Anion Gap 6, BUN 10, Creatinine 0.23 L, Estim Creat Clear Calc 460.75, Est GFR (MDRD) Af Amer 583, Est GFR (MDRD) Non-Af 482, BUN/Creatinine Ratio 43.7 H, Glucose 122 H, Calcium 8.2 L Microbiology: Microbiology 03/24/22 18:25 Blood Culture (Wb) - Port Blood Culture - Final No growth in 5 days. 03/24/22 17:40 Blood Culture (Wb) - Port Blood Culture - Final No growth in 5 days. 03/24/22 19:13 Sputum, Tracheal Aspirate Gram Stain - Final 03/24/22 19:13 Sputum, Tracheal Aspirate Respiratory Culture - Final Proteus mirabilis Streptococcus agalactiae (B) 03/24/22 22:42 Mucosa - Nasopharyngeal Respiratory Panel (PCR) - Final 03/24/22 20:50 Nasal Secretion SARS-CoV-2 & FLU Antigen (Rapid) - Final D/C Instructions Discharge Diet: - (tube feed) Weight Bearing Status: No weight bearing Call your doctor if you observe: Fever of 101 or Higher, Shortness of breath and Dizziness Meaningful Use Info Meaningful Use Diagnoses (Choose all that apply): None applicable Discharge Plan Admission Admit Date/Time: 03/24/22 20:02 Primary Reason for Your Visit: septic shock due to pneumonia Attending Provider: Cindy Alexandre Primary Care Provider: Timmy Conn Consulting Providers: Fiona Echavarria ; Jacek Monsalve ; Yovanny Moreira ; Armando Plaza ; John Tolentino ; Valarie Kee CORRECTIONAL AGENCY DIRECTOR ; Roberto Hathaway ; Luis Simon ; Lucia Dillard ; Luis Carlos Henderson Instructions Patient Instructions: Sepsis, ED Pneumonia (Adult) Discharge Orders/Prescriptions Prescriptions: Continued albuterol sulfate 2.5 mg /3 mL (0.083 %) solution for nebulization 2.5 mg inhalation Q4H PRN (Reason: Sob &/Or Wheezing) esomeprazole magnesium [Nexium Packet] [address] for susp in packet 40 mg G-tube BID famotidine [Pepcid] 20 mg tablet 20 mg feeding tube LUNCH Rx Instructions: per NG simethicone 40 mg/0.6 mL drops,suspension 40 mg G-tube PRN PRN (Reason: GAS) Label Comments: gas metoclopramide HCl 5 mg/5 mL solution 5 mg feeding tube TID Label Comments: stomach phenobarbital 20 MG/5 ML elixir 60 mg G-tube 5X/DAY Label Comments: 20 mg/5 Lactobacillus acidophilus 1 EACH capsule 1 cap G-tube DAILY lorazepam 1 MG tablet 2 mg G-tube Q8 PRN (Reason: Agitation) Label Comments: TAKE ONE TABLET BY MOUTH THREE TIMES DAILY NEEDED ferrous sulfate 15 MG/ML drops 75 mg G-tube DAILY Cough Assist 1 dose .Route .MEDSUPPLY Rx Instructions: Inspiratory and Expiratory times of 20-40 seconds with a 1-2 second pause. oxygen concentrator 1 dose .Route .MEDSUPPLY Rx Instructions: As directed ondansetron HCl 4 MG tablet 5 ml feeding tube DAILY PRN (Reason: Nausea) baclofen 5 mg/5 mL solution 20 mg G-tube Q6H lactose-reduced food with fibr 0.06 gram-1.2 kcal/mL liquid 1,000 ml G-tube DAILY Rx Instructions: 50 ml/hr continuous ascorbic acid (vitamin C) 500 MG/5 ML syrup 500 mg G-tube DAILY Rx Instructions: take this medication with the iron supplement gabapentin 250 MG/5 ML solution 500 mg G-tube 4X/DAY plecanatide 3 mg tablet 3 mg GT DAILY doxazosin 2 mg tablet 2 mg GT DAILY cholecalciferol (vitamin D3) 10 mcg/mL (400 unit/mL) drops 50 mcg feeding tube DAILY Label Comments: GIVE 0.75ML VIA G-TUBEYONCE DAILY guaifenesin 200 mg/5 mL liquid 200 mg feeding tube Q6H PRN (Reason: Cough) Referrals / Follow Up: Timmy Conn MD [Primary Care Provider] - Within 2 Weeks Disposition Disposition (needs filled in before D/C Order can be placed): Home Health Service Charges/Coding Visit Charges Inpatient E&M: 77237 Disch Hosp >30min
[2022-04-01] MEDS: LORazepam 1 MG Tablet 2 MG GT (11:00)
--- NOTE | 2022-04-01 11:51 | CASEMGMT ---
RE GUADALUPE note: Pt being discharged. Per junior legal secretary, Aspen, she has faxed discharge instructions to [facility]. Calls placed to [facility] and left re: pt being discharged today. RE GUADALUPE placed call to Compa @ [facility] aide agency and he was made aware of discharge. Janice BAL RN, CM
--- NOTE | 2022-04-01 12:23 | NURSING ---
1030 meds given via [employer]. pt with increased rr and activity in bed. per mom pt usually has had gabepentin already at home so is aggitated from not having that on board and he heard me say he was going home. dr. cat in and dc in computer. will arrange for squad to take when papers in d/t home vent and need for suctioning. attends changed for mod urine and pt pulled up in bed. laith tf well with no residual as well
--- NOTE | 2022-04-01 12:26 | NURSING ---
1110 mother requesting that ativan be given d.t pt still being aggitated
--- NOTE | 2022-04-10 10:24 | CASEMGMT ---
Addendum entered by Misael Rm 04/10/22 11:17: Call received from Nallely @ Dr Conn's office. She states she received a script from Dr Conn for the additional siderails and will fax to [facility]. She states she will also contact pt's mom, Matteo, to notify her of same. Addendum entered by Misael Rm 04/10/22 10:40: Call placed to nurse, Nallely, @ Dr Conn's and she was made aware of pt's mom's request for double side rails on both sides of the bed and that per Norah, @ [facility], they can provide these w/a script saying provide additional rails. She was provided w/[facility] phone and fax # ([phone]). She states she will notify Dr Conn today and will f/u with this RE GUADALUPE and w/pt's mom, Matteo. Call placed to pt's mom/Gdn, Matteo. She was made aware Norah @ [facility] states they can provide additional side rails and that Dr Conn's nurse is working on this. She was made aware this item is not billable through insurance and that they would not be able to deliver them until next week. She voices this will be okay. She voices appreciation for the assistance with this and denies having further needs at this time. Original Note: RE GUADALUPE NOTE: VM received from pt's mother, Mateto, stating [facility] has delivered pt's bed to their home that has 1/2 siderails on both sides, but she is requesting pt has double side rails on both sides. Matteo's message stated she called [facility] and they informed her they are unable to provide this. Call placed to manager Norah @ [facility], @ . She states they can provide this item w/a script stating Provide additional siderails. She states this item is not billable through insurance and they would need to pay for it [id number]. She states if the script is received today they could deliver them to pt's home next week. Janice BAL RN, CM
== END 2022-04-01 11:36 | disposition home health service (06) | DRG 870 ==
LOC: ED 20:16 → ICU 21:20
PROVIDERS: Internal Medicine; Admitting Provider Internal Medicine; Emergency Provider Emergency Medicine; PCP Family Medicine; Visit Provider Student in an Organized Health Care Education/Training Program
DX: A40.1 Sepsis due to streptococcus, group B (principal); J96.21 Acute and chronic respiratory failure with hypoxia; J69.0 Pneumonitis due to inhalation of food and vomit; R65.21 Severe sepsis with septic shock; J15.6 Pneumonia due to other Gram-negative bacteria; J15.3 Pneumonia due to streptococcus, group B; G80.0 Spastic quadriplegic cerebral palsy; J95.851 Ventilator associated pneumonia; J96.12 Chronic respiratory failure with hypercapnia; Z99.11 Dependence on respirator [ventilator] status; E87.1 Hypo-osmolality and hyponatremia; K92.2 Gastrointestinal hemorrhage, unspecified; G40.909 Epilepsy, unspecified, not intractable, without status epilepticus; Z93.0 Tracheostomy status; Z93.1 Gastrostomy status; Z93.3 Colostomy status; D63.8 Anemia in other chronic diseases classified elsewhere; D50.9 Iron deficiency anemia, unspecified; R14.0 Abdominal distension (gaseous); K43.5 Parastomal hernia without obstruction or gangrene; E87.6 Hypokalemia; R13.10 Dysphagia, unspecified; Z20.822 Contact with and (suspected) exposure to COVID-19; Z79.899 Other long term (current) drug therapy; Z86.711 Personal history of pulmonary embolism
CPT/HCPCS: 31720; 36591; 71045; 74018; 74177; 80048; 80053; 80076; 81001; 83605; 85025; 87040; 87070; 87077; 87186; 87205; 87428; 87633; 94640; 94762; 97110; 97166; 97802; 97803; 99252; 99285; J7030; J7040; J7050; Q9967; A4216; G0463; J0696; J2405

== ENCOUNTER 2022-05-04 09:11 | Outpatient (RCR) | payer MEDICARE, BC, MEDICAID, SELFPAY ==
[2022-05-04 09:38] LABS: Absolute Lymphocyte Count 1.95 X10^3/uL (0.83-4.51); Absolute Neutrophil Count 2.8 X10^3/uL (2.0-7.7); Basophil# 0.01 X10^3/uL; Basophil% 0.2 % (0-1); Eosinophils% 3.7 % (0-5); Hematocrit 34.9 % (40-54); Hemoglobin 11.3 g/dL (13.0-16.5); Lymphocyte # 1.95 X10^3/ul (0.83-4.51); Lymphocyte % 35.6 % (19-41); Mean Corp Hgb Conc 32.4 g/dL (32-36); Mean Corpuscular Hgb 28.3 pg (27.0-32.0); Mean Corpuscular Volume 87.3 fL (80-94); Mean Platelet Vol. 10.8 fl (6.2-12.0); Monocyte# 0.53 X10^3/uL; Monocyte% 9.7 % (0-10); NRBC Flagged by Analyzer 0 % (0-5); Neutrophil # 2.77 X10^3/uL (2.7-7.7); Neutrophil % 50.6 % (47-70); Platelet Count 180 K/mm3 (150-450); RBC Distribution Width CV 14.4 % (11.6-14.6); RBC Distribution Width SD 46.2 fl (35.1-43.9); White Blood Count 5.5 K/mm3 (4.4-11.0)
[2022-05-04 09:50] LABS: Anion Gap 6 (5-15); BUN 17 mg/dL (7-18); BUN/Creat Ratio 62.5 RATIO (10-20); Calcium,Total 8.6 mg/dL (8.5-10.1); Chloride 106 mmol/L (98-107); Creatinine, Serum 0.27 mg/dL (0.70-1.30); EST Glomerular Filtration Rate 395 mL/min (>60); Est Glom Filt Rate - Afr Amer 478 mL/min (>60); Glucose 102 mg/dL (74-106); Potassium 3.5 mmol/L (3.5-5.1); Prealbumin 24.1 mg/dL (20.0-40.0); Sodium Level 141 mmol/L (136-145)
== END 2022-05-22 23:59 ==
LOC: LABSPEC 09:11
PROVIDERS: PCP Family Medicine; Referring Provider Internal Medicine Cardiovascular Disease; Visit Provider Internal Medicine Cardiovascular Disease
DX: D63.8 Anemia in other chronic diseases classified elsewhere (principal); J96.11 Chronic respiratory failure with hypoxia; J96.12 Chronic respiratory failure with hypercapnia; D50.9 Iron deficiency anemia, unspecified; K92.2 Gastrointestinal hemorrhage, unspecified; E87.1 Hypo-osmolality and hyponatremia; E87.6 Hypokalemia
CPT/HCPCS: 80048; 80184; 84134; 85025

== ENCOUNTER 2022-06-01 09:29 | Outpatient (RCR) | payer MEDICARE, BC, MEDICAID, SELFPAY ==
[2022-06-01 09:36] LABS: Absolute Neutrophil Count 2.2 X10^3/uL (2.0-7.7); Basophil# 0.02 X10^3/uL; Basophil% 0.4 % (0-1); Eosinophil# 0.24 X10^3/uL; Eosinophils% 4.6 % (0-5); Hematocrit 33.7 % (40-54); Lymphocyte % 42.5 % (19-41); Mean Corp Hgb Conc 32.6 g/dL (32-36); Mean Corpuscular Hgb 28.2 pg (27.0-32.0); Mean Corpuscular Volume 86.4 fL (80-94); Mean Platelet Vol. 10.1 fl (6.2-12.0); Monocyte% 9.7 % (0-10); NRBC Flagged by Analyzer 0 % (0-5); Neutrophil # 2.21 X10^3/uL (2.7-7.7); Neutrophil % 42.6 % (47-70); Platelet Count 183 K/mm3 (150-450); RBC Distribution Width CV 14.7 % (11.6-14.6); RBC Distribution Width SD 46.1 fl (35.1-43.9); White Blood Count 5.2 K/mm3 (4.4-11.0)
[2022-06-01 09:46] LABS: Anion Gap 3 (5-15); BUN 12 mg/dL (7-18); Calcium,Total 8.8 mg/dL (8.5-10.1); Chloride 105 mmol/L (98-107); Creatinine, Serum 0.26 mg/dL (0.70-1.30); EST Glomerular Filtration Rate 414 mL/min (>60); Est Glom Filt Rate - Afr Amer 501 mL/min (>60); Glucose 100 mg/dL (74-106); Potassium 3.6 mmol/L (3.5-5.1); Sodium Level 140 mmol/L (136-145)
== END 2022-06-21 23:59 ==
LOC: LABSPEC 09:29
PROVIDERS: PCP Family Medicine; Referring Provider Internal Medicine Cardiovascular Disease; Visit Provider Internal Medicine Cardiovascular Disease
DX: D63.8 Anemia in other chronic diseases classified elsewhere (principal); J96.11 Chronic respiratory failure with hypoxia; J96.12 Chronic respiratory failure with hypercapnia; D50.9 Iron deficiency anemia, unspecified; K92.2 Gastrointestinal hemorrhage, unspecified; E87.1 Hypo-osmolality and hyponatremia; E87.6 Hypokalemia
CPT/HCPCS: 80048; 85025

== ENCOUNTER 2022-06-12 10:37 | Emergency (ER) | payer MEDICARE, BC, MEDICAID, SELFPAY ==
[2022-06-12 10:38] VITALS: BP 109/77; PULSE 79; RESP 18; TEMP 36.4; O2SAT 96; BMI 34.2
--- NOTE | 2022-06-12 10:49 | EX.ED.DYSGE1 ---
HPI History of Present Illness Chief Complaint: General Illness Narrative Narrative: 42-year-old male here with generalized illness. Per the patient's family noted saturations in the mid 80s on home vent. Sats are now in the mid 90s. Family reports no recent illness or fever. Family further states patient had transient hypoxia down to 86%. They noted they did CoughAssist to the patient's vent, ultimately bagged the patient for few seconds when he improved and returned to baseline oxygen levels of 93 to 94%. Mom thinks it may have been a mucous plug but wants him checked out for COVID given recent sick contacts in the home. Also concerned about pneumonia given his history of recent mission for aspiration pneumonia. [facility] Medical History Acute dyspnea Anemia in chronic illness Cerebral palsy Colostomy prolapse Debility Edema History of seizure disorder Iron deficiency anemia Nonrheumatic mitral valve prolapse Obesity Pseudomonas pneumonia Pulmonary embolism on left (06/14/19) Redundant colon Thrombocytopenia Tracheostomy in place Upper GI bleeding (04/2020) Home Medications phenobarbital 20 mg/5 mL (4 mg/mL) oral elixir 60 mg G-tube 5X/DAY pain 02/19/17 [History Last Taken 04/24/20 21:00] Lactobacillus acidophilus 1 cap G-tube DAILY gut health 02/04/18 [History Last Taken 04/24/20 09:00] metoclopramide HCl 5 mg/5 mL oral solution 5 mg feeding tube TID thrush 09/16/18 [History Last Taken 04/24/20 21:00] lorazepam 1 mg tablet 2 mg G-tube Q8 PRN Agitation 10/08/18 [History Last Taken 04/24/20 22:00] Cough Assist 1 dose .Route .MEDSUPPLY assist in clearing secretions 12/25/18 [History Last Taken Unknown] ferrous sulfate 15 mg iron (75 mg)/mL oral drops 75 mg G-tube DAILY supplement 12/25/18 [History Last Taken 04/24/20 16:00] oxygen concentrator 1 dose .Route .MEDSUPPLY second unit, 4 LPM cont all modalities 12/25/18 [History Last Taken Unknown] ondansetron HCl 4 mg tablet 5 ml feeding tube DAILY PRN Nausea 05/09/19 [History Last Taken Unknown] ascorbic acid (vitamin C) 500 mg/5 mL oral syrup 500 mg G-tube DAILY Check with primary doctor 08/04/19 [History Last Taken Unknown] gabapentin 250 mg/5 mL oral solution 500 mg G-tube 4X/DAY Check with primary doctor 09/26/19 [History Last Taken 04/25/20 06:00] albuterol sulfate 2.5 mg/3 mL (0.083 %) solution for nebulization 2.5 mg inhalation Q4H PRN Sob &/Or Wheezing 11/27/20 [History Last Taken Unknown] baclofen 5 mg/5 mL oral solution 20 mg G-tube Q6H Spasticity 11/27/20 [History Last Taken Unknown] esomeprazole magnesium 40 mg granules delayed release for susp (Nexium Packet) 40 mg G-tube BID Check with primary doctor 11/27/20 [History Last Taken Unknown] famotidine 20 mg tablet (Pepcid) 20 mg feeding tube LUNCH Check with primary doctor 11/27/20 [History Last Taken Unknown] lactose-reduced food with fiber 0.06 gram-1.2 kcal/mL oral liquid 1,000 ml G-tube DAILY Check with primary doctor 11/27/20 [History Last Taken Unknown] plecanatide 3 mg tablet 3 mg G-tube DAILY Check with primary doctor 11/27/20 [History Last Taken Unknown] simethicone 40 mg/0.6 mL oral drops,suspension 40 mg G-tube PRN PRN GAS 11/27/20 [History Last Taken Unknown] doxazosin 2 mg tablet 2 mg PO DAILY Check with primary doctor 11/30/21 [History Last Taken Unknown] cholecalciferol (vitamin D3) 10 mcg/mL (400 unit/mL) oral drops 50 mcg feeding tube DAILY vitiamin 03/24/22 [History Last Taken Unknown] guaifenesin 200 mg/5 mL oral liquid 200 mg feeding tube Q6H PRN Cough 03/24/22 [History Last Taken Unknown] Allergy/AdvReac Type Severity Reaction Status Date / Time cisapride monohydrate Allergy Rash Verified 06/12/22 10:38 [From Propulsid] house dust Allergy NEEDS Verified 06/12/22 10:38 FOLLOW-UP codeine AdvReac hallucinati Verified 06/12/22 10:38 ons metronidazole [From Flagyl] AdvReac Rash Verified 06/12/22 10:38 morphine AdvReac Hallucinati Verified 06/12/22 10:38 ons Family History Mother Hepatitis C Hypertension Father CAD (coronary artery disease) Atrial fibrillation Hypertension H/O heart artery stent Surgical History Colostomy in place Heel cord lengthening History of colostomy History of eye surgery History of gastrostomy tube placement History of open reduction and internal fixation (ORIF) procedure History of soft tissue release Status post insertion of intrathecal baclofen pump Social History household members: family housing: house current occupational status: disabled Smoking Status: Never smoker alcohol intake: never substance use type: does not use caffeine: No ROS ROS ED Review of Systems ROS Unobtainable: due to mental condition EXAM Physical Exam Narrative Exam Narrative: Nursing triage notes reviewed, Vital signs reviewed Constitutional: please see mdm HENT: Dry oral mucosa Eyes: Pupils equal round and reactive to light, Extraocular muscles intact Neck: No stridor, no JVD, full neck ROM, trach in place, no redness or bleeding around trach site. Lungs: Clear to auscultation, No wheezing or rales. No increased work of breathing, no conversational dyspnea, no accessory muscle use, no nasal flaring. No respiratory distress noted Heart: Regular rate and rhythm, No murmurs, No rubs and No gallops, 2+ distal pulses (radial, femoral, posterior tibial) in all extremities Abdomen: Soft, there is no tenderness, colostomy bag in place, prolapsed contents and colostomy appears pink and well vascularized, rigidity, rebound or guarding, no obvious peritoneal signs, no palpable pulsatile abdominal masses, no auscultated abdominal bruit : No CVAT Extremities: No edema, chronic appearing contractures in upper lower extremities Neuro: Alert, rouses to minimal stimuli, appears to move all 4 extremities, appears to have sensation all 4 extremities Skin: No rash or lesions noted, no cyanosis Const Vital Signs: 06/12/22 10:38 06/12/22 10:43 06/12/22 12:17 Temperature 97.5 F L 97.5 F L Temperature Source Temporal Temporal Pulse Rate 79 64 Respiratory Rate 18 18 Respiratory Effort Normal Non-Labored Respiratory Pattern Normal Blood Pressure 109/77 109/73 Blood Pressure Mean 87 85 Pulse Ox 96 96 Oxygen Delivery Method Mechanical Ventilator Mechanical Ventilator Oxygen Flow Rate (L/min) 5 MDM MDM MDM Narrative Medical decision making narrative: Chief Complaint: Transient hypoxia External records reviewed: Admitted in March 2022 for sepsis, aspiration pneumonia MDM: The patient was hemodynamically stable, afebrile, nontoxic appearing. Exam unremarkable. Lungs clear, no murmurs gallops or rubs. No signs of respiratory distress. I considered the following differential diagnosis: Mucous plugging, pneumonia, COVID, flu, anemia, arrhythmia, myocardial ischemia I obtained a broad lab and imaging work-up to further elucidate etiology patient complaints. Labs images remarkable for no signs of significant anemia. No signs of systemic inflammation. No signs of myocardial ischemia. No signs of arrhythmia or new EKG changes suggest myocardial ischemia. Chest x-ray without evidence of pneumonia pulmonary edema. Etiology of trans hypoxia likely secondary to mucous plugging. Encouraged ongoing evaluation and treatment at home. Encourage frequent tracheal suctioning and tracheostomy management. Encourage close follow-up with the patient's primary care physician as well as his vera specialist. Factors affecting care: Cerebral palsy, iron deficiency anemia Social determinants of health: Poor health literacy History obtained from others: The patient's parent Shared decision making: I will have a discussion with the patient and or visitors regarding risk/benefits of further testing or admission. They will be made aware of of the risk/benefits inherent in this decision they will be given the opportunity to voice understanding. Consults: None Lab Data Attestation: I reviewed the patient's lab results. Lab results narrative: EKG shows normal sinus rhythm, left axis deviation, T wave inversions in anterior lateral leads similar to prior EKG on November 2021 CBC without evidence of systemic inflammation, mild anemia (similar to prior), no thrombocytopenia COVID, flu negative Troponin is negative, no evidence of myocardial ischemia BMP without evidence of significant electrolyte abnormalities (noted mild hyponatremia), no anion gap, no acute kidney injury. Labs: Laboratory Results - last 24 hr 06/12/22 06/12/22 11:45 11:45 WBC 6.1 RBC 4.08 L Hgb 11.2 L Hct 34.7 L MCV 85.0 MCH 27.5 MCHC 32.3 RDW Std Deviation 45.3 H RDW Coeff of [place] 14.5 Plt Count 199 MPV 9.8 Immature Gran % (Auto) 1.300 H Neut % (Auto) 50.9 Lymph % (Auto) 35.9 [place] % (Auto) 8.1 Eos % (Auto) 3.3 Baso % (Auto) 0.5 Absolute Neuts (auto) 3.1 Absolute Lymphs (auto) 2.18 Nucleated RBC % 0 Sodium 135 L Potassium 3.7 Chloride 103 Carbon Dioxide 28.0 Anion Gap 4 L BUN 11 Creatinine 0.28 L Estim Creat Clear Calc 381.94 Est GFR (MDRD) Af Amer 456 Est GFR (MDRD) Non-Af 377 BUN/Creatinine Ratio 38.9 H Glucose 90 Calcium 8.8 Troponin I High Sens < 3 L Radiography Chest X-Ray - ED: Read by ED Physician Diagnostic Testing: Clinical Impression(s) from Imaging Studies Chest X-Ray 06/12/22 12:00 IMPRESSION: The tracheostomy tube and the right daniela catheter are unchanged. The lungs are clear. Electronically Signed: Matti Greer MD at 12:12 EDT , I have personally reviewed the patient's chest x-ray. Chest x-ray is unremarkable for pulmonary edema, pneumothorax, pneumonia or focal cardiopulmonary abnormality. Discharge Plan Triage Chief Complaint: General Illness ED Provider: Naveen Munoz Dx/Rx/DC Orders Clinical Impression: Mucus plugging of bronchi, Ventilator dependence, History of cerebral palsy, Acute hyponatremia Instructions: ED Mucous Plug, Trach Tube Prescriptions: No Action albuterol sulfate 2.5 mg /3 mL (0.083 %) solution for nebulization 2.5 mg inhalation Q4H PRN (Reason: Sob &/Or Wheezing) esomeprazole magnesium [Nexium Packet] [address] for susp in packet 40 mg G-tube BID famotidine [Pepcid] 20 mg tablet 20 mg feeding tube LUNCH Rx Instructions: per NG simethicone 40 mg/0.6 mL drops,suspension 40 mg G-tube PRN PRN (Reason: GAS) Label Comments: gas metoclopramide HCl 5 mg/5 mL solution 5 mg feeding tube TID Label Comments: stomach phenobarbital 20 MG/5 ML elixir 60 mg G-tube 5X/DAY Label Comments: 20 mg/5 Lactobacillus acidophilus 1 EACH capsule 1 cap G-tube DAILY lorazepam 1 MG tablet 2 mg G-tube Q8 PRN (Reason: Agitation) Label Comments: TAKE ONE TABLET BY MOUTH THREE TIMES DAILY NEEDED ferrous sulfate 15 MG/ML drops 75 mg G-tube DAILY Cough Assist 1 dose .Route .MEDSUPPLY Rx Instructions: Inspiratory and Expiratory times of 20-40 seconds with a 1-2 second pause. oxygen concentrator 1 dose .Route .MEDSUPPLY Rx Instructions: As directed ondansetron HCl 4 MG tablet 5 ml feeding tube DAILY PRN (Reason: Nausea) baclofen 5 mg/5 mL solution 20 mg G-tube Q6H lactose-reduced food with fibr 0.06 gram-1.2 kcal/mL liquid 1,000 ml G-tube DAILY Rx Instructions: 50 ml/hr continuous ascorbic acid (vitamin C) 500 MG/5 ML syrup 500 mg G-tube DAILY Rx Instructions: take this medication with the iron supplement gabapentin 250 MG/5 ML solution 500 mg G-tube 4X/DAY plecanatide 3 mg tablet 3 mg GT DAILY doxazosin 2 mg tablet 2 mg GT DAILY cholecalciferol (vitamin D3) 10 mcg/mL (400 unit/mL) drops 50 mcg feeding tube DAILY Label Comments: GIVE 0.75ML VIA G-TUBEYONCE DAILY guaifenesin 200 mg/5 mL liquid 200 mg feeding tube Q6H PRN (Reason: Cough) Primary Care Provider: Timmy Conn Referrals: Timmy Conn MD [Primary Care Provider] - Activity Restrictions/Additional Instructions: Please return if you notice any changes to the patient's oxygenation. Please follow with his primary care physicians as well as specialist for outpatient evaluation and further treatment. Disposition Disposition: Home, Self Care
--- NOTE | 2022-06-12 11:05 | EKG12_ITS ---
Test Reason : Blood Pressure : / mmHG Vent. Rate : 065 BPM Atrial Rate : 065 BPM P-R Int : 162 ms QRS Dur : 098 ms QT Int : 446 ms P-R-T Axes : 025 -09 -09 degrees QTc Int : 463 ms Normal sinus rhythm ST & T wave abnormality, consider anterolateral ischemia Prolonged QT Abnormal ECG Confirmed by PATEL VARGAS, RACHELLE ([id number]), technical writer and editor JOSEMANUEL TORRES ([id number]) on 06/15/2022 11:02:49 AM Referred By: Naveen Munoz Confirmed By:RACHELLE SWEENEY MD
[2022-06-12 11:54] LABS: Absolute Lymphocyte Count 2.18 X10^3/uL (0.83-4.51); Absolute Neutrophil Count 3.1 X10^3/uL (2.0-7.7); Basophil# 0.03 X10^3/uL; Basophil% 0.5 % (0-1); Eosinophils% 3.3 % (0-5); Hematocrit 34.7 % (40-54); Hemoglobin 11.2 g/dL (13.0-16.5); Lymphocyte # 2.18 X10^3/ul (0.83-4.51); Lymphocyte % 35.9 % (19-41); Mean Corp Hgb Conc 32.3 g/dL (32-36); Mean Corpuscular Hgb 27.5 pg (27.0-32.0); Mean Platelet Vol. 9.8 fl (6.2-12.0); Monocyte# 0.49 X10^3/uL; Monocyte% 8.1 % (0-10); NRBC Flagged by Analyzer 0 % (0-5); Neutrophil % 50.9 % (47-70); Platelet Count 199 K/mm3 (150-450); RBC Distribution Width CV 14.5 % (11.6-14.6); RBC Distribution Width SD 45.3 fl (35.1-43.9); Red Blood Count 4.08 M/mm3 (4.6-6.2); White Blood Count 6.1 K/mm3 (4.4-11.0)
--- NOTE | 2022-06-12 12:00 | RAD_ITS ---
STUDY: X-RAY CHEST REASON FOR EXAM: Male, 42 years old. Hypoxia TECHNIQUE: Single AP portable view of the chest. COMPARISON: Comparison is made with prior study of March 29, 2022. FINDINGS: A tracheostomy tube is in situ. The tip is at 5.1 cm proximal to the clark. A right-sided Port-A-Cath is seen with the tip in the right atrium. EKG electrodes are seen. The lungs are clear and expanded. There is no demonstrated pleural abnormality. There is mild cardiac enlargement. Normal mediastinum and rachelle. Normal visualized pulmonary arteries. Normal visualized aortic arch and descending thoracic aorta. Normal visualized thoracic spine. Normal visualized ribs, clavicles, and shoulders. There is no demonstrated abnormality of the visualized soft tissue structures of the upper abdomen. RAD/Chest 1 View (Portable) IMPRESSION: The tracheostomy tube and the right daniela catheter are unchanged. The lungs are clear. Electronically Signed: Matti Greer MD at 12:12 EDT ,
[2022-06-12 12:08] LABS: Anion Gap 4 (5-15); BUN 11 mg/dL (7-18); BUN/Creat Ratio 38.9 RATIO (10-20); Calcium,Total 8.8 mg/dL (8.5-10.1); Chloride 103 mmol/L (98-107); Creatinine, Serum 0.28 mg/dL (0.70-1.30); EST Glomerular Filtration Rate 377 mL/min (>60); Est Glom Filt Rate - Afr Amer 456 mL/min (>60); Glucose 90 mg/dL (74-106); Potassium 3.7 mmol/L (3.5-5.1); Sodium Level 135 mmol/L (136-145); Troponin-I HS < 3 pg/mL (3.0-78.0)
[2022-06-12 12:17] VITALS: BP 109/73; PULSE 64; RESP 18; TEMP 36.4; O2SAT 96
== END 2022-06-12 14:21 | disposition home or self-care (01) ==
PROVIDERS: Emergency Provider Emergency Medicine; PCP Family Medicine; Referring Provider Emergency Medicine; Visit Provider Emergency Medicine
DX: T17.590A Other foreign object in bronchus causing asphyxiation, initial encounter (principal); Z99.11 Dependence on respirator [ventilator] status; G80.9 Cerebral palsy, unspecified; D50.9 Iron deficiency anemia, unspecified; E87.1 Hypo-osmolality and hyponatremia; X58.XXXA Exposure to other specified factors, initial encounter
CPT/HCPCS: 36591; 71045; 80048; 84484; 85025; 87428; 93005; 99285; A4216

== ENCOUNTER 2022-06-22 18:19 | Emergency (ER) | payer MEDICARE, BC, MEDICAID, SELFPAY ==
[2022-06-22 18:20] VITALS: BP 92/62; PULSE 125; RESP 18; TEMP 37.7; O2SAT 94; BMI 38.7
[2022-06-22 18:41] VITALS: BP 98/70; PULSE 93; RESP 19; TEMP 37.7; O2SAT 92
--- NOTE | 2022-06-22 18:44 | EDS_ITS ---
HPI History of Present Illness Chief Complaint: Shortness of Breath Informant: parent (Mother and father) Narrative Narrative: Patient started having tachycardia and dyspnea today, and increase in tracheostomy secretions, and developed a fever that was measured by EMS as 101. He is nonverbal, family takes care of him at home, he does not take any oral food or fluids. They have been giving him free water flushes and tube feeds via his G-tube, but they have noticed a decrease in his urine output in his diaper, they are not measuring this specifically obviously. No hematuria. [facility] Medical History Acute dyspnea Anemia in chronic illness Cerebral palsy Chronic respiratory failure Chronic respiratory failure with hypoxia Colostomy prolapse Debility Edema History of seizure disorder Iron deficiency anemia Nonrheumatic mitral valve prolapse Obesity Pseudomonas pneumonia Pulmonary embolism on left (06/14/19) Redundant colon Thrombocytopenia Tracheostomy in place Upper GI bleeding (04/2020) Home Medications phenobarbital 20 mg/5 mL (4 mg/mL) oral elixir 60 mg G-tube 5X/DAY pain 02/19/17 [History Last Taken 04/24/20 21:00] Lactobacillus acidophilus 1 cap G-tube DAILY gut health 02/04/18 [History Last Taken 04/24/20 09:00] metoclopramide HCl 5 mg/5 mL oral solution 5 mg feeding tube TID thrush 09/16/18 [History Last Taken 04/24/20 21:00] lorazepam 1 mg tablet 2 mg G-tube Q8 PRN Agitation 10/08/18 [History Last Taken 04/24/20 22:00] Cough Assist 1 dose .Route .MEDSUPPLY assist in clearing secretions 12/25/18 [History Last Taken Unknown] ferrous sulfate 15 mg iron (75 mg)/mL oral drops 75 mg G-tube DAILY supplement 12/25/18 [History Last Taken 04/24/20 16:00] oxygen concentrator 1 dose .Route .MEDSUPPLY second unit, 4 LPM cont all modalities 12/25/18 [History Last Taken Unknown] ondansetron HCl 4 mg tablet 5 ml feeding tube DAILY PRN Nausea 05/09/19 [History Last Taken Unknown] ascorbic acid (vitamin C) 500 mg/5 mL oral syrup 500 mg G-tube DAILY Check with primary doctor 08/04/19 [History Last Taken Unknown] gabapentin 250 mg/5 mL oral solution 500 mg G-tube 4X/DAY Check with primary doctor 09/26/19 [History Last Taken 04/25/20 06:00] albuterol sulfate 2.5 mg/3 mL (0.083 %) solution for nebulization 2.5 mg inhalation Q4H PRN Sob &/Or Wheezing 11/27/20 [History Last Taken Unknown] baclofen 5 mg/5 mL oral solution 20 mg G-tube Q6H Spasticity 11/27/20 [History Last Taken Unknown] esomeprazole magnesium 40 mg granules delayed release for susp (Nexium Packet) 40 mg G-tube BID Check with primary doctor 11/27/20 [History Last Taken Unknown] famotidine 20 mg tablet (Pepcid) 20 mg feeding tube LUNCH Check with primary doctor 11/27/20 [History Last Taken Unknown] lactose-reduced food with fiber 0.06 gram-1.2 kcal/mL oral liquid 1,000 ml G- tube DAILY Check with primary doctor 11/27/20 [History Last Taken Unknown] plecanatide 3 mg tablet 3 mg G-tube DAILY Check with primary doctor 11/27/20 [History Last Taken Unknown] simethicone 40 mg/0.6 mL oral drops,suspension 40 mg G-tube PRN PRN GAS 11/27/20 [History Last Taken Unknown] doxazosin 2 mg tablet 2 mg PO DAILY Check with primary doctor 11/30/21 [History Last Taken Unknown] cholecalciferol (vitamin D3) 10 mcg/mL (400 unit/mL) oral drops 50 mcg feeding tube DAILY vitiamin 03/24/22 [History Last Taken Unknown] guaifenesin 200 mg/5 mL oral liquid 200 mg feeding tube Q6H PRN Cough 03/24/22 [History Last Taken Unknown] Allergy/AdvReac Type Severity Reaction Status Date / Time chlorhexidine Allergy Rash Verified 06/22/22 18:27 cisapride monohydrate Allergy Rash Verified 06/22/22 18:27 [From Propulsid] house dust Allergy NEEDS Verified 06/22/22 18:27 FOLLOW-UP codeine AdvReac hallucinati Verified 06/22/22 18:27 ons metronidazole [From Flagyl] AdvReac Rash Verified 06/22/22 18:27 morphine AdvReac Hallucinati Verified 06/22/22 18:27 ons Family History Mother Hepatitis C Hypertension Father CAD (coronary artery disease) Atrial fibrillation Hypertension H/O heart artery stent Surgical History Colostomy in place Heel cord lengthening History of colostomy History of eye surgery History of gastrostomy tube placement History of open reduction and internal fixation (ORIF) procedure History of soft tissue release Status post insertion of intrathecal baclofen pump Social History household members: family housing: house current occupational status: disabled Smoking Status: Never smoker alcohol intake: never substance use type: does not use caffeine: No ROS ROS ED Review of Systems ROS Unobtainable: due to mental condition EXAM Physical Exam Const Vital Signs: 06/22/22 18:20 06/22/22 18:28 06/22/22 18:41 Temperature 100 F H 99.9 F H Temperature Source Temporal Temporal Pulse Rate 125 H 93 Respiratory Rate 18 19 H Respiratory Effort Short of Breath Blood Pressure 92/62 98/70 Blood Pressure Mean 72 79 Pulse Ox 94 92 Oxygen Delivery Method Mechanical Ventilator Mechanical Ventilator Oxygen Flow Rate (L/min) 4 06/22/22 18:41 06/22/22 19:32 06/22/22 19:32 Temperature 97.3 F L Temperature Source Temporal Pulse Rate 91 91 Respiratory Rate 18 18 Respiratory Effort Blood Pressure 100/66 100/66 Blood Pressure Mean 77 77 Pulse Ox 93 93 Oxygen Delivery Method Mechanical Ventilator Mechanical Ventilator Mechanical Ventilator Oxygen Flow Rate (L/min) 06/22/22 20:05 Temperature 97.5 F L Temperature Source Temporal Pulse Rate 84 Respiratory Rate 18 Respiratory Effort Blood Pressure 102/69 Blood Pressure Mean 80 Pulse Ox 93 Oxygen Delivery Method Mechanical Ventilator Oxygen Flow Rate (L/min) Positive well nourished, well developed and obese General Appearance ED: well developed and NAD Nutritional Appearance: obese HEENT Reports moist mucous membranes normocephalic and atraumatic Eyes PERRL Neck full ROM and supple Resp normal respiratory effort and clear to auscultation bilaterally Resp Narrative: Clear throughout diminished symmetrically trachea midline, no secretions actively expressed via tracheostomy Cardio regular rate, regular rhythm and no murmurs Rate: tachycardic GI non-tender and non-distended GI Narrative: Colostomy with large prolapse into colostomy bag, and liquid stool output nonbloody tenderness. No signs of malperfusion. Auscultation: normoactive bowel sounds Palpation: soft Back/Spine no CVA tenderness General Back: other FROM Extremity normal to inspection General Extremety ED: Negative for edema, pulses abnormal or tenderness General Extremity: Negative for edema or pulses abnormal Neuro Neuro Narrative: Nonverbal not able to follow commands, baseline neurologic status per family Sensorium / Orientation: awake and alert Skin no rashes or lesions noted and no wounds MDM MDM MDM Narrative Medical decision making narrative: Septic work-up was obtained, the patient was tachycardic when he first was here and he did have a low-grade temperature. Mother had already treated that with Tylenol, so we basically gave him IV fluids and watched him while we awaited the work-up to return. He was breathing very comfortably initial evaluation, with clear lungs, and without excessive tracheostomy secretions. We observed him, and his breathing remained normal, at baseline according to parents, his blood pressure normalized with fluids, and he urinated a lot on his own. Parents state it is unusual for him to hold his urine like that, and they are wondering if he was uncomfortable because he was holding it. The work-up is basically normal. He does not have any evidence of sepsis, pneumonia 1 view on my interpretation which the radiology is in agreement with, and his urine is also not showing any signs of infection. He may have been a little prerenal. At this time he is at his baseline. We did do blood and urine cultures, I do not think he needs any antibiotics at this time. The differential includes mucous plugging, a viral infection that gave him the fever, anxiety and/or discomfort from one of the above issues. Family is comfortable taking him home and they agree keeping him off of antibiotics unless they appear to be indicated, at this time they do not. Lab Data Attestation: I reviewed the patient's lab results. Labs: Laboratory Results - last 24 hr 06/22/22 06/22/22 06/22/22 19:10 19:10 19:10 WBC 6.6 RBC 4.21 L Hgb 11.5 L Hct 36.5 L MCV 86.7 MCH 27.3 MCHC 31.5 L RDW Std Deviation 45.2 H RDW Coeff of [place] 14.3 Plt Count 202 MPV 10.0 Immature Gran % (Auto) 0.200 Neut % (Auto) 67.2 Lymph % (Auto) 21.5 [place] % (Auto) 8.5 Eos % (Auto) 2.4 Baso % (Auto) 0.2 Absolute Neuts (auto) 4.5 Absolute Lymphs (auto) 1.42 Nucleated RBC % 0 PT 13.0 INR 1.0 APTT 31.6 Sodium 139 Potassium 3.5 Chloride 107 Carbon Dioxide 25.0 Anion Gap 7 BUN 16 Creatinine 0.33 L Estim Creat Clear Calc 366.58 Est GFR (MDRD) Af Amer 383 Est GFR (MDRD) Non-Af 317 BUN/Creatinine Ratio 48.6 H Glucose 82 Lactic Acid Calcium 7.6 L Total Bilirubin 0.10 L AST 16 ALT 19 Alkaline Phosphatase 135 H Total Protein 7.2 Albumin 2.9 L Globulin 4.3 H Albumin/Globulin Ratio 0.7 L Urine Color Urine Clarity Urine pH Ur Specific [place] Urine Protein Urine Glucose (UA) Urine Ketones Urine Occult Blood Urine Nitrite Urine Bilirubin Urine Urobilinogen Ur Leukocyte Esterase Urine RBC Urine WBC Ur Squamous Epith Cells Urine Bacteria Urine Mucus 06/22/22 06/22/22 19:10 19:20 WBC RBC Hgb Hct MCV MCH MCHC RDW Std Deviation RDW Coeff of [place] Plt Count MPV Immature Gran % (Auto) Neut % (Auto) Lymph % (Auto) [place] % (Auto) Eos % (Auto) Baso % (Auto) Absolute Neuts (auto) Absolute Lymphs (auto) Nucleated RBC % PT INR APTT Sodium Potassium Chloride Carbon Dioxide Anion Gap BUN Creatinine Estim Creat Clear Calc Est GFR (MDRD) Af Amer Est GFR (MDRD) Non-Af BUN/Creatinine Ratio Glucose Lactic Acid 1.3 Calcium Total Bilirubin AST ALT Alkaline Phosphatase Total Protein Albumin Globulin Albumin/Globulin Ratio Urine Color Yellow Urine Clarity Sl Cldy Urine pH 8.0 Ur Specific [place] 1.010 Urine Protein 30 H Urine Glucose (UA) Normal Urine Ketones 5 H Urine Occult Blood Negative Urine Nitrite Negative Urine Bilirubin Negative Urine Urobilinogen Normal Ur Leukocyte Esterase 25 H Urine RBC 0 SEEN Urine WBC 0-5 SEEN Ur Squamous Epith Cells 0-5 SEEN Urine Bacteria 0 SEEN Urine Mucus 0 SEEN Radiography Diagnostic Testing: Clinical Impression(s) from Imaging Studies Chest X-Ray 06/22/22 18:50 IMPRESSION: No radiographic evidence of acute cardiopulmonary disease. Electronically Signed: Victor Manuel Hannah MD at 19:23 EDT , Rhythm Strip Rhythm Strip: Sinus Tach Rate: 109 Ectopy: None EKG Initial EKG: Attestation: I personally reviewed and interpreted this EKG as follows: Interpretation: No Acute Injury Pattern and Sinus Tachycardia (Otherwise normal EKG) Discharge Plan Triage Chief Complaint: Shortness of Breath ED Provider: Siddharth De La Rosa Dx/Rx/DC Orders Clinical Impression: Fever, Mild dehydration Instructions: ED FUO Adult Prescriptions: No Action albuterol sulfate 2.5 mg /3 mL (0.083 %) solution for nebulization 2.5 mg inhalation Q4H PRN (Reason: Sob &/Or Wheezing) esomeprazole magnesium [Nexium Packet] [address] for susp in packet 40 mg G-tube BID famotidine [Pepcid] 20 mg tablet 20 mg feeding tube LUNCH Rx Instructions: per NG simethicone 40 mg/0.6 mL drops,suspension 40 mg G-tube PRN PRN (Reason: GAS) Label Comments: gas metoclopramide HCl 5 mg/5 mL solution 5 mg feeding tube TID Label Comments: stomach phenobarbital 20 MG/5 ML elixir 60 mg G-tube 5X/DAY Label Comments: 20 mg/5 Lactobacillus acidophilus 1 EACH capsule 1 cap G-tube DAILY lorazepam 1 MG tablet 2 mg G-tube Q8 PRN (Reason: Agitation) Label Comments: TAKE ONE TABLET BY MOUTH THREE TIMES DAILY NEEDED ferrous sulfate 15 MG/ML drops 75 mg G-tube DAILY Cough Assist 1 dose .Route .MEDSUPPLY Rx Instructions: Inspiratory and Expiratory times of 20-40 seconds with a 1-2 second pause. oxygen concentrator 1 dose .Route .MEDSUPPLY Rx Instructions: As directed ondansetron HCl 4 MG tablet 5 ml feeding tube DAILY PRN (Reason: Nausea) baclofen 5 mg/5 mL solution 20 mg G-tube Q6H lactose-reduced food with fibr 0.06 gram-1.2 kcal/mL liquid 1,000 ml G-tube DAILY Rx Instructions: 50 ml/hr continuous ascorbic acid (vitamin C) 500 MG/5 ML syrup 500 mg G-tube DAILY Rx Instructions: take this medication with the iron supplement gabapentin 250 MG/5 ML solution 500 mg G-tube 4X/DAY plecanatide 3 mg tablet 3 mg GT DAILY doxazosin 2 mg tablet 2 mg GT DAILY cholecalciferol (vitamin D3) 10 mcg/mL (400 unit/mL) drops 50 mcg feeding tube DAILY Label Comments: GIVE 0.75ML VIA G-TUBEYONCE DAILY guaifenesin 200 mg/5 mL liquid 200 mg feeding tube Q6H PRN (Reason: Cough) Primary Care Provider: Timmy Conn Referrals: Timmy Conn MD [Primary Care Provider] - 1-2 Days if not improving Disposition Disposition: Home, Self Care
[2022-06-22] MEDS: 0.9% Normal Saline 1,000 ML 999 ML IV (18:48)
--- NOTE | 2022-06-22 18:50 | RAD_ITS ---
INDICATION: sob, fever EXAMINATION/TECHNIQUE: X-RAY - portable semiupright AP chest x-ray COMPARISON: 06/12/2022 FINDINGS: LINES/DEVICES: Stable tracheostomy tube and right-sided port. LUNGS: Low lung volumes with stable elevation right hemidiaphragm. No consolidation, vascular congestion or pleural effusion. MEDIASTINUM AND CARDIOVASCULAR STRUCTURES: Cardiac silhouette stable. BONES AND SOFT TISSUES: No acute changes. RAD/Chest 1 View (Portable) IMPRESSION: No radiographic evidence of acute cardiopulmonary disease. Electronically Signed: Victor Manuel Hannah MD at 19:23 EDT ,
[2022-06-22 19:25] LABS: Absolute Lymphocyte Count 1.42 X10^3/uL (0.83-4.51); Absolute Neutrophil Count 4.5 X10^3/uL (2.0-7.7); Basophil# 0.01 X10^3/uL; Basophil% 0.2 % (0-1); Eosinophil# 0.16 X10^3/uL; Eosinophils% 2.4 % (0-5); Hematocrit 36.5 % (40-54); Hemoglobin 11.5 g/dL (13.0-16.5); Lymphocyte # 1.42 X10^3/ul (0.83-4.51); Lymphocyte % 21.5 % (19-41); Mean Corp Hgb Conc 31.5 g/dL (32-36); Mean Corpuscular Hgb 27.3 pg (27.0-32.0); Mean Corpuscular Volume 86.7 fL (80-94); Monocyte# 0.56 X10^3/uL; Monocyte% 8.5 % (0-10); NRBC Flagged by Analyzer 0 % (0-5); Neutrophil # 4.45 X10^3/uL (2.7-7.7); Neutrophil % 67.2 % (47-70); Platelet Count 202 K/mm3 (150-450); RBC Distribution Width CV 14.3 % (11.6-14.6); RBC Distribution Width SD 45.2 fl (35.1-43.9); Red Blood Count 4.21 M/mm3 (4.6-6.2); White Blood Count 6.6 K/mm3 (4.4-11.0)
[2022-06-22 19:28] LABS: Bacteria 0 SEEN /hpf (None Seen); Mucous, Urine 0 SEEN /hpf (<or=2+); Red Blood Cells-Urine 0 SEEN /hpf (0-5)
[2022-06-22 19:32] VITALS: BP 100/66; PULSE 91; RESP 18; TEMP 36.3; O2SAT 93
[2022-06-22 19:35] LABS: Partial Thromboplast Time 31.6 Seconds (24.1-36.2)
[2022-06-22 19:42] LABS: ALB/GLOB Ratio 0.7 RATIO (0.9-2.4); AST(SGOT) 16 U/L (15-37); Alanine Aminotransfer ALT/SGPT 19 U/L (16-61); Albumin, Serum 2.9 g/dL (3.2-5.0); Alkaline Phosphatase 135 U/L (45-117); Anion Gap 7 (5-15); BUN 16 mg/dL (7-18); BUN/Creat Ratio 48.6 RATIO (10-20); Calcium,Total 7.6 mg/dL (8.5-10.1); Chloride 107 mmol/L (98-107); Creatinine, Serum 0.33 mg/dL (0.70-1.30); EST Glomerular Filtration Rate 317 mL/min (>60); Est Glom Filt Rate - Afr Amer 383 mL/min (>60); Estimated Creatinine Clearance 366.58 ml/min; Globulin 4.3 g/dL (2.2-4.2); Glucose 82 mg/dL (74-106); Potassium 3.5 mmol/L (3.5-5.1); Protein, Total 7.2 g/dL (6.4-8.2); Sodium Level 139 mmol/L (136-145)
[2022-06-22 19:58] LABS: Glucose, Dipstick Normal (Normal); Ketone-Dipstick 5 mg/dl (Negative); Leukocyte Esterase-Dipstick 25 /ul (Negative); Nitrite-Dipstick Negative (Negative); Occult Blood-Urine Negative /ul (Negative); Protein-Dipstick 30 mg/dl (Negative); Urine Bilirubin Dipstick Negative (Negative); Urine Urobilinogen Normal (Normal)
[2022-06-22 19:59] LABS: Color, Urine Yellow (Yellow); Urine Clarity Sl Cldy (Clear)
[2022-06-22 20:05] VITALS: BP 102/69; PULSE 84; RESP 18; TEMP 36.4; O2SAT 93
[2022-06-22 20:07] LABS: Lactic Acid 1.3 mmol/L (0.4-1.9)
[2022-06-22 20:12] LABS: Squamous Epithelial Cells - UA 0-5 SEEN /hpf (0-5); White Blood Cells 0-5 SEEN /hpf (0-5)
[2022-06-22 20:35] VITALS: BP 102/74; PULSE 90; RESP 18; TEMP 36.4; O2SAT 94
== END 2022-06-23 03:20 | disposition home or self-care (01) ==
PROVIDERS: Emergency Provider Emergency Medicine; PCP Family Medicine; Visit Provider Emergency Medicine
DX: R50.9 Fever, unspecified (principal); Z93.0 Tracheostomy status; Z93.1 Gastrostomy status; Z93.3 Colostomy status; G80.9 Cerebral palsy, unspecified; E86.0 Dehydration; R06.02 Shortness of breath; E66.9 Obesity, unspecified; Z79.899 Other long term (current) drug therapy
CPT/HCPCS: 36591; 71045; 80053; 81001; 83605; 85025; 85610; 85730; 87040; 87086; 93005; 96360; 96361; 99285; J7030; A4216

== ENCOUNTER → 2022-07-22 | Outpatient (CLI) | payer MEDICARE, BC, MEDICAID, SELFPAY ==
[2022-07-22 10:33] LABS: Anion Gap 7 (5-15); BUN 13 mg/dL (7-18); BUN/Creat Ratio 36.2 RATIO (10-20); Calcium,Total 8.6 mg/dL (8.5-10.1); Chloride 102 mmol/L (98-107); Creatinine, Serum 0.36 mg/dL (0.70-1.30); EST Glomerular Filtration Rate 286 mL/min (>60); Est Glom Filt Rate - Afr Amer 346 mL/min (>60); Glucose 80 mg/dL (74-106); Potassium 3.9 mmol/L (3.5-5.1); Sodium Level 139 mmol/L (136-145)
[2022-07-22 13:03] LABS: Absolute Lymphocyte Count 2.12 X10^3/uL (0.83-4.51); Absolute Neutrophil Count 2.9 X10^3/uL (2.0-7.7); Basophil# 0.02 X10^3/uL; Basophil% 0.3 % (0-1); Eosinophil# 0.29 X10^3/uL; Eosinophils% 4.9 % (0-5); Hematocrit 33.6 % (40-54); Hemoglobin 11.1 g/dL (13.0-16.5); Lymphocyte # 2.12 X10^3/ul (0.83-4.51); Lymphocyte % 35.9 % (19-41); Mean Corpuscular Volume 84.8 fL (80-94); Mean Platelet Vol. 9.9 fl (6.2-12.0); Monocyte# 0.56 X10^3/uL; Monocyte% 9.5 % (0-10); NRBC Flagged by Analyzer 0 % (0-5); Neutrophil # 2.91 X10^3/uL (2.7-7.7); Neutrophil % 49.2 % (47-70); Platelet Count 171 K/mm3 (150-450); RBC Distribution Width CV 13.5 % (11.6-14.6); RBC Distribution Width SD 42.1 fl (35.1-43.9); Red Blood Count 3.96 M/mm3 (4.6-6.2); White Blood Count 5.9 K/mm3 (4.4-11.0)
== END | disposition home or self-care (01) ==
LOC: LABSPEC 09:55
PROVIDERS: PCP Family Medicine; Visit Provider Family Medicine
DX: E55.9 Vitamin D deficiency, unspecified (principal); K31.84 Gastroparesis
CPT/HCPCS: 80048; 85025

== ENCOUNTER → 2022-08-17 | Outpatient (CLI) | payer MEDICARE, BC, MEDICAID, SELFPAY ==
[2022-08-17 09:22] LABS: Absolute Lymphocyte Count 2.34 X10^3/uL (0.83-4.51); Absolute Neutrophil Count 2.9 X10^3/uL (2.0-7.7); Basophil# 0.02 X10^3/uL; Basophil% 0.3 % (0-1); Eosinophil# 0.22 X10^3/uL; Eosinophils% 3.6 % (0-5); Hematocrit 34.2 % (40-54); Hemoglobin 10.9 g/dL (13.0-16.5); Lymphocyte # 2.34 X10^3/ul (0.83-4.51); Lymphocyte % 38.1 % (19-41); Mean Corp Hgb Conc 31.9 g/dL (32-36); Mean Corpuscular Hgb 27.5 pg (27.0-32.0); Mean Corpuscular Volume 86.1 fL (80-94); Monocyte# 0.61 X10^3/uL; Monocyte% 9.9 % (0-10); NRBC Flagged by Analyzer 0 % (0-5); Neutrophil # 2.93 X10^3/uL (2.7-7.7); Neutrophil % 47.8 % (47-70); Platelet Count 194 K/mm3 (150-450); RBC Distribution Width CV 13.6 % (11.6-14.6); RBC Distribution Width SD 42.5 fl (35.1-43.9); Red Blood Count 3.97 M/mm3 (4.6-6.2); White Blood Count 6.1 K/mm3 (4.4-11.0)
[2022-08-17 09:34] LABS: Anion Gap 5 (5-15); BUN 16 mg/dL (7-18); BUN/Creat Ratio 51.6 RATIO (10-20); Calcium,Total 8.7 mg/dL (8.5-10.1); Chloride 103 mmol/L (98-107); Creatinine, Serum 0.31 mg/dL (0.70-1.30); EST Glomerular Filtration Rate 339 mL/min (>60); Est Glom Filt Rate - Afr Amer 410 mL/min (>60); Glucose 87 mg/dL (74-106); Potassium 3.9 mmol/L (3.5-5.1); Sodium Level 137 mmol/L (136-145)
== END | disposition home or self-care (01) ==
LOC: LABSPEC 09:06
PROVIDERS: PCP Family Medicine; Referring Provider Family Medicine; Visit Provider Family Medicine
DX: E55.9 Vitamin D deficiency, unspecified (principal); K31.84 Gastroparesis
CPT/HCPCS: 80048; 85025

== ENCOUNTER → 2022-09-14 | Outpatient (CLI) | payer MEDICARE, BC, MEDICAID, SELFPAY ==
[2022-09-14 09:09] LABS: Absolute Lymphocyte Count 1.95 X10^3/uL (0.83-4.51); Absolute Neutrophil Count 3.3 X10^3/uL (2.0-7.7); Basophil# 0.02 X10^3/uL; Basophil% 0.3 % (0-1); Eosinophil# 0.22 X10^3/uL; Eosinophils% 3.7 % (0-5); Hematocrit 33.6 % (40-54); Hemoglobin 10.5 g/dL (13.0-16.5); Lymphocyte # 1.95 X10^3/ul (0.83-4.51); Lymphocyte % 32.4 % (19-41); Mean Corp Hgb Conc 31.3 g/dL (32-36); Mean Corpuscular Hgb 27.1 pg (27.0-32.0); Mean Corpuscular Volume 86.8 fL (80-94); Mean Platelet Vol. 10.2 fl (6.2-12.0); Monocyte# 0.52 X10^3/uL; Monocyte% 8.7 % (0-10); NRBC Flagged by Analyzer 0 % (0-5); Neutrophil # 3.29 X10^3/uL (2.7-7.7); Neutrophil % 54.7 % (47-70); Platelet Count 197 K/mm3 (150-450); RBC Distribution Width CV 14.1 % (11.6-14.6); RBC Distribution Width SD 44.9 fl (35.1-43.9); Red Blood Count 3.87 M/mm3 (4.6-6.2)
[2022-09-14 09:19] LABS: Anion Gap 4 (5-15); BUN 16 mg/dL (7-18); BUN/Creat Ratio 65.6 RATIO (10-20); Calcium,Total 8.2 mg/dL (8.5-10.1); Chloride 104 mmol/L (98-107); Creatinine, Serum 0.24 mg/dL (0.70-1.30); EST Glomerular Filtration Rate 447 mL/min (>60); Est Glom Filt Rate - Afr Amer 540 mL/min (>60); Glucose 91 mg/dL (74-106); Sodium Level 138 mmol/L (136-145)
== END | disposition home or self-care (01) ==
LOC: LABSPEC 08:48
PROVIDERS: PCP Family Medicine; Referring Provider Family Medicine; Visit Provider Family Medicine
DX: E55.9 Vitamin D deficiency, unspecified (principal); K31.84 Gastroparesis
CPT/HCPCS: 80048; 80184; 85025

== ENCOUNTER → 2022-10-14 | Outpatient (CLI) | payer MEDICARE, BC, MEDICAID, SELFPAY ==
[2022-10-14 12:19] LABS: Absolute Neutrophil Count 3.5 X10^3/uL (2.0-7.7); Basophil# 0.02 X10^3/uL; Basophil% 0.3 % (0-1); Eosinophil# 0.24 X10^3/uL; Eosinophils% 3.8 % (0-5); Hematocrit 34.2 % (40-54); Hemoglobin 11.2 g/dL (13.0-16.5); Lymphocyte % 32.9 % (19-41); Mean Corp Hgb Conc 32.7 g/dL (32-36); Mean Corpuscular Hgb 27.3 pg (27.0-32.0); Mean Corpuscular Volume 83.2 fL (80-94); Mean Platelet Vol. 10.3 fl (6.2-12.0); Monocyte# 0.53 X10^3/uL; Monocyte% 8.3 % (0-10); NRBC Flagged by Analyzer 0 % (0-5); Neutrophil # 3.48 X10^3/uL (2.7-7.7); Neutrophil % 54.4 % (47-70); Platelet Count 211 K/mm3 (150-450); RBC Distribution Width CV 13.7 % (11.6-14.6); RBC Distribution Width SD 41.8 fl (35.1-43.9); Red Blood Count 4.11 M/mm3 (4.6-6.2); White Blood Count 6.4 K/mm3 (4.4-11.0)
[2022-10-14 13:40] LABS: Anion Gap 6 (5-15); BUN 14 mg/dL (7-18); BUN/Creat Ratio 48.4 RATIO (10-20); Calcium,Total 8.6 mg/dL (8.5-10.1); Chloride 103 mmol/L (98-107); Creatinine, Serum 0.29 mg/dL (0.70-1.30); EST Glomerular Filtration Rate 367 mL/min (>60); Est Glom Filt Rate - Afr Amer 444 mL/min (>60); Glucose 87 mg/dL (74-106); Potassium 3.5 mmol/L (3.5-5.1); Sodium Level 137 mmol/L (136-145)
== END | disposition home or self-care (01) ==
LOC: LABSPEC 11:43
PROVIDERS: PCP Family Medicine; Visit Provider Family Medicine
DX: E55.9 Vitamin D deficiency, unspecified (principal); K31.84 Gastroparesis
CPT/HCPCS: 80048; 85025

== ENCOUNTER 2022-10-27 14:12 | Inpatient (IN) | payer SELFPAY ==
--- NOTE | 2022-10-27 14:32 | HP.PCM_ITS ---
HPI - General General Date of Admission: 10/27/22 Date of Service: 10/27/22 Chief Complaint: admitted for respite care HPI Narrative KRISS MICHAEL, is a 42 M with a PMH as outlined who presents as a direct admit on 10/27/2022 to be admitted for respite care. Patient is ventilator dependent due to chronic respiratory failure from cerebral palsy with spastic quadriplegia. He lives with his parents. He is being brought in today for resp ite care to enable his father have surgery for esophageal cancer at [facility]. [facility] Medical History (Updated 10/28/22 @ 08:[address] Barry Young MD) Acute dyspnea Anemia in chronic illness Cerebral palsy Chronic respiratory failure Chronic respiratory failure with hypoxia Colostomy prolapse Debility Edema History of seizure disorder Iron deficiency anemia Nonrheumatic mitral valve prolapse Obesity Pseudomonas pneumonia Pulmonary embolism on left (06/14/19) Redundant colon Thrombocytopenia Tracheostomy in place Upper GI bleeding (04/2020) Home Medications phenobarbital 20 mg/5 mL (4 mg/mL) oral elixir 60 mg G-tube 0830,2100 SEIZURES 02/19/17 [History Last Taken 04/24/20 21:00] metoclopramide HCl 5 mg/5 mL oral solution 10 mg feeding tube 0830,1600,2100 STOMACH 09/16/18 [History Last Taken 04/24/20 21:00] Cough Assist 1 dose .Route .MEDSUPPLY assist in clearing secretions 12/25/18 [History Last Taken Unknown] oxygen concentrator 1 dose .Route .MEDSUPPLY second unit, 4 LPM cont all modalities 12/25/18 [History Last Taken Unknown] gabapentin 250 mg/5 mL oral solution 500 mg G-tube 0000,0600,1200,1800 SEIZURES 09/26/19 [History Last Taken 04/25/20 06:00] albuterol sulfate 2.5 mg/3 mL (0.083 %) solution for nebulization 2.5 mg inhalation Q4H PRN Sob &/Or Wheezing 11/27/20 [History Last Taken Unknown] baclofen 5 mg/5 mL oral solution 4 mg G-tube 0000,0600,1200,1800 Spasticity 11/27/20 [History Last Taken Unknown] esomeprazole magnesium 40 mg granules delayed release for susp (Nexium Packet) 40 mg G-tube 0830 ACID REFLUX 11/27/20 [History Last Taken Unknown] famotidine 20 mg tablet (Pepcid) 20 mg feeding tube 0830 ACID REFLUX 11/27/20 [History Last Taken Unknown] lactose-reduced food with fiber 0.06 gram-1.2 kcal/mL oral liquid 1,000 ml G- tube DAILY NUTRITION 11/27/20 [History Last Taken Unknown] plecanatide 3 mg tablet 3 mg G-tube 0830 BOWELS 11/27/20 [History Last Taken Unknown] doxazosin 2 mg tablet 2 mg PO 0830 BLOOD PRESSURE 11/30/21 [History Last Taken Unknown] cholecalciferol (vitamin D3) 10 mcg/mL (400 unit/mL) oral drops 15 mcg feeding tube 0830 SUPPLEMENT 03/24/22 [History Last Taken Unknown] guaifenesin 200 mg/5 mL oral liquid 200 mg feeding tube 0830 PRN COUGH/CONGESTION 03/24/22 [History Last Taken Unknown] acetaminophen 650 mg/20.3 mL oral suspension 650 mg feeding tube 0000,0600,1200,1800 PRN PAIN 10/24/22 [History Last Taken Unknown] aluminum-mag hydroxide-simethicone 200 mg-200 mg-20 mg/5 mL oral susp 5 ml PO 0000,0600,1200,1800 PRN ANTACID 10/24/22 [History Last Taken Unknown] cetirizine 1 mg/mL oral solution 10 mg feeding tube 1600 ALLERGIES 10/24/22 [History Last Taken Unknown] lorazepam 2 mg/mL injection solution (Ativan) 1 mg IM DAILY PRN AGITATION 10/24/22 [History Last Taken Unknown] Allergy/AdvReac Type Severity Reaction Status Date / Time chlorhexidine Allergy Rash Verified 09/17/22 13:21 cisapride monohydrate Allergy Rash Verified 09/17/22 13:21 [From Propulsid] house dust Allergy NEEDS Verified 09/17/22 13:21 FOLLOW-UP codeine AdvReac hallucinati Verified 09/17/22 13:21 ons metronidazole [From Flagyl] AdvReac Rash Verified 09/17/22 13:21 morphine AdvReac Hallucinati Verified 09/17/22 13:21 ons Family History Mother Hepatitis C Hypertension HIV disease Father H/O heart artery stent CAD (coronary artery disease) Atrial fibrillation Hypertension Esophageal cancer Surgical History Colostomy in place Heel cord lengthening History of colostomy History of eye surgery History of gastrostomy tube placement History of open reduction and internal fixation (ORIF) procedure History of soft tissue release Status post insertion of intrathecal baclofen pump Social History household members: family housing: house current occupational status: disabled Smoking Status: Never smoker alcohol intake: never substance use type: does not use caffeine: No ROS ROS Narrative unable due to patient having cerebral palsy with spastic quadriplegia. He is nonverbal Physical Exam Const alert Constitutional Narrative: sitting comfortably in his wheelchair, nonverbal HEENT normocephalic and moist oral mucous membranes HEENT Narrative: macroglossia Eyes PERRL and EOMs intact bilaterally Neck no lymphadenopathy Lymph Lymphatic: no lymphadenopathy noted and no lymphedema noted Resp Resp Narrative: on ventilator via tracheostomy. Diminished breath sounds bibasally, no wheezes or crackles Cardio regular rate, regular rhythm, S1 normal heart sound, S2 normal heart sound and no murmurs GI normal to inspection, nondistended, normoactive bowel sounds, soft to palpation and non-tender GI Narrative: PEG tube in place Extremity normal capillary refill, no clubbing, cyanosis or edema and no calf tenderness Skin General Skin Exam: no breakdown Neuro Neuro Narrative: alert, nonverbal, moves all limbs spontaneously Assessment & Plan Assessment/Plan (1) Chronic respiratory failure with hypoxia: PLAN: Plan #Chronic respiratory failure due to cerebral palsy with spastic quadriplegia * admit to ICU under med surg status * Ventilator dependent at home. Tracheostomy in place. * Brought in for respite care as as well as been developed cancer surgery * Vent settings intubated. Tidal volume 350, respiratory rate of 10, PEEP of 8 and process possible of 10 cm of water. * Respiratory therapist on board. * Breathing treatments bronchodilators. Titrate oxygen to maintain saturation above 90%. * * #Cerebral palsy with positive quadriplegia: On baclofen, gabapentin and Ativan. #Seizure disorder: On phenobarbital and gabapentin as well as Ativan. #Chronic dysphagia: H * as not PEG tube in place. Tube feeds with Jevity 1.2 nery/ml * Can be increased to 65 cc/h during the day. This is slowed down to 45 mils per hour at night. Has water flushes of about 100 cc/h which is given mostly during the day. * Mother does not give any water flushes from 12 AM to 6 AM to enable him sleep. * DVT prophylaxis: low risk. Family didnt want him to be on any DVT prophylaxis as he is just here fore respite care. Charges/Coding Visit Charges Inpatient E&M: 27610 Init Hosp L2
--- NOTE | 2022-10-27 17:25 | CASEMGMT ---
RE CM: Admission Hospital-Issued Notice of Noncoverage (HINN) was reviewed and signed by pt's mother Yue. The original was placed in pt's chart and a copy was provided to pt's mother. Rosa Kim RN CM
[2022-10-27 17:26] VITALS: BMI 32.5
[2022-10-27 18:42] VITALS: O2SAT 99
[2022-10-27 19:00] VITALS: BP 127/88; PULSE 88; PULSE 92; RESP 18; TEMP 36.6; O2SAT 98; O2SAT 99
[2022-10-27] MEDS: GABAPENTIN 250 MG/5 ML SOLUTION GT ×2 (20:35→23:37)
[2022-10-27] MEDS: Metoclopramide 10 MG/10 ML UDC GT (21:10)
[2022-10-27] MEDS: Chlorhexidine 15 ML PO (21:10)
[2022-10-27] MEDS: Phenobarbital 20 MG/5 ML UDC 60 MG GT (21:10)
[2022-10-27 21:15] VITALS: PULSE 90; RESP 11; O2SAT 98
[2022-10-27 21:58] VITALS: PULSE 85; O2SAT 97
[2022-10-27 23:30] VITALS: PULSE 83; RESP 13; O2SAT 98
[2022-10-28] VITALS (11 sets, daily range): BP systolic 121–132; BP diastolic 75–96; PULSE 64–113; RESP 11–19; TEMP 36–36.5; O2SAT 95–99; BMI 32.8
[2022-10-28] MEDS: Mag Hydrox/Al Hydrox/Simeth 30 ML UDC 5 ML GT ×2 (00:29→17:48)
[2022-10-28] MEDS: LORazepam 1 MG Tablet 2 MG GT ×2 (00:29→22:03)
[2022-10-28] MEDS: Acetaminophen 650 MG/20 ML UDC GT ×2 (00:29→16:03)
[2022-10-28] MEDS: GABAPENTIN 250 MG/5 ML SOLUTION GT ×4 (05:32→23:37)
--- NOTE | 2022-10-28 05:53 | CPS ---
Patient placed on his Home HME with 3.5L bled in for daytiome use
--- NOTE | 2022-10-28 05:53 | CPS ---
Patient on his Home HME with 3.5L bled in for day time use
[2022-10-28] MEDS: ESOMEPRAZOLE MAGNESIUM 40 MG SUSPDR.PKT GT (08:17)
[2022-10-28] MEDS: Famotidine 20 MG Tablet GT (08:17)
[2022-10-28] MEDS: Metoclopramide 10 MG/10 ML UDC GT ×3 (08:18→20:34)
[2022-10-28] MEDS: PLECANATIDE 3 MG TABLET PO (08:18)
[2022-10-28] MEDS: Phenobarbital 20 MG/5 ML UDC 60 MG GT ×2 (08:18→20:33)
[2022-10-28] MEDS: Doxazosin 1 MG Tablet 2 MG GT (08:18)
[2022-10-28] MEDS: Cholecalciferol (VIT D3) 25 MCG TABLET (1,000 UNITS) GT (08:20)
--- NOTE | 2022-10-28 08:35 | PCM.PN.HOSP ---
Subjective Subjective No issues overnight, doing well Objective Data Objective Data Vital Signs: Vital Signs Temp Pulse Resp BP Pulse Ox O2 Del Method O2 Flow Rate 97.0 F L 77 16 121/75 H 98 T-piece 4 10/28/22 08:25 10/28/22 08:25 10/28/22 08:25 10/28/22 08:25 10/28/22 08:25 10/28/22 08:25 10/28/22 08:25 FiO2 28 10/27/22 21:58 Oxygen Flow Rate (L/min) 4 Oxygen Delivery Method T-piece Weight: 167 lb 8.821 oz Body Mass Index (BMI) 32.8 Intake & Output: Intake and Output for Last 24 Hours 10/27/22 10/28/22 10/29/22 03:59 03:59 03:59 Output Total 300 / 300 Balance -300 / -300 Physical Exam Narrative General: Alert, nonverbal, cooperative, No apparent distress HEENT: Atraumatic, PERRLA Oral: Moist Mucosa Neck: Supple, No JVD, T-piece in place Lungs: Clear to auscultation, Normal air movement, No rhonchi, No wheeze, No rales Cardiovascular: Regular rate, Regular Rhythm, Normal S1, Normal S2, No murmurs Abdomen: Soft, Non Tender, Non-Distended, No Hepato-splenomegaly Extremities: No edema, Capillary Refill Less than 3 Seconds Skin: No rashes, No breakdown Musculoskeletal: No Tenderness to Palpation of Joints or Extremities Neurological: Cerebral palsy at baseline Psych/Mental Status: Baseline affect Assessment & Plan Assessment/Plan (1) Chronic respiratory failure with hypoxia: PLAN: Plan 1. 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 We will continue with his home ventilator settings and his home instructions ? She is here for respite care secondary to his father needing surgery ? We will continue with his home ventilator settings at night ? Continue respiratory therapy evaluations and bronchodilator treatments 2. Seizure disorder/cerebral palsy with quadriplegia ? Continue with his home medications 3. Chronic dysphagia ? Continue with tube feeds per home instructions Charges/Coding Visit Charges Inpatient E&M: 88303 Subs Hosp L2
--- NOTE | 2022-10-28 15:45 | CHAPLAIN ---
Type of Pastoral Visit _x__ Initial Visit ___ Follow-up Visit ___ On-call Visit ___ General Patient Visit ___ Spiritual Assessment ___ Family Conference ___ Bereavement ___ Rapid Response ___ Code Blue ___ Other (describe below) Pastoral Care Referral From ___ Patient _x__ Family ___ Nurse ___ Physician ___ Digital Engineer ___ Auto Porter ___ Other (describe below) Sacrament/Intervention ___ Active listening ___ Anointing ___ Nondenominational ___ Bereavement ___ Communion ___ Sandra exploration ___ ___ Life review _x__ Prayer ___ Reconciliation ___ Sacrament of Sick _x__ Supportive presence ___ Wedding ___ Other (describe below) Pastoral Comments patient is non verbal and has been seen numerous times in the past; pt is sitting in special chair and TV is on; talked to patient to tell him who this c2 tactical analysis technician is and that I was there to talk with him for a bit; made conversation and said a prayer; left a calling card for his family
[2022-10-28] MEDS: Loratadine 10 MG Tablet GT (15:59)
[2022-10-28] MEDS: guaiFENesin 10 ML UDC (200MG/10ML) GT (16:01)
[2022-10-28] MEDS: Chlorhexidine 15 ML PO (20:34)
--- NOTE | 2022-10-28 21:30 | NURSING ---
UPDATE GIVEN TO BRICE PT'S MOTHER.
[2022-10-29] VITALS (14 sets, daily range): BP systolic 119–138; BP diastolic 71–101; PULSE 71–117; RESP 18–26; TEMP 36.3–36.6; O2SAT 96–99
[2022-10-29] MEDS: LORazepam 1 MG Tablet 2 MG GT (00:05)
[2022-10-29] MEDS: GABAPENTIN 250 MG/5 ML SOLUTION GT ×4 (05:25→23:45)
--- NOTE | 2022-10-29 08:28 | PCM.PN.HOSP ---
Subjective Subjective No issues overnight doing well Objective Data Objective Data Vital Signs: Vital Signs Temp Pulse Resp BP Pulse Ox O2 Del Method O2 Flow Rate 97.8 F 92 19 H 138/94 H 97 T-piece 4 10/29/22 02:15 10/29/22 07:15 10/29/22 07:15 10/29/22 02:15 10/29/22 08:10 10/29/22 08:10 10/29/22 08:10 FiO2 28 10/29/22 02:15 Oxygen Flow Rate (L/min) 4 Oxygen Delivery Method T-piece Weight: 167 lb 8.821 oz Body Mass Index (BMI) 32.8 Intake & Output: Intake and Output for Last 24 Hours 10/28/22 10/29/22 10/30/22 03:59 03:59 03:59 Intake Total 1979 / 1979 1221 / 1221 Output Total 300 / 300 600 / 600 150 / 150 Balance -300 / -300 1380 / 1380 1071 / 1071 Physical Exam Narrative General: Alert, nonverbal, cooperative, No apparent distress HEENT: Atraumatic, PERRLA Oral: Moist Mucosa Neck: Supple, No JVD, T-piece in place Lungs: Clear to auscultation, Normal air movement, No rhonchi, No wheeze, No rales Cardiovascular: Regular rate, Regular Rhythm, Normal S1, Normal S2, No murmurs Abdomen: Soft, Non Tender, Non-Distended, No Hepato-splenomegaly Extremities: No edema, Capillary Refill Less than 3 Seconds Skin: No rashes, No breakdown Musculoskeletal: No Tenderness to Palpation of Joints or Extremities Neurological: Cerebral palsy at baseline Psych/Mental Status: Baseline affect Assessment & Plan Assessment/Plan (1) Chronic respiratory failure with hypoxia: PLAN: Plan 1. 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 We will continue with his home ventilator settings and his home instructions ? She is here for respite care secondary to his father needing surgery ? We will continue with his home ventilator settings at night ? Continue respiratory therapy evaluations and bronchodilator treatments 2. Seizure disorder/cerebral palsy with quadriplegia ? Continue with his home medications 3. Chronic dysphagia ? Continue with tube feeds per home instructions Charges/Coding Visit Charges Inpatient E&M: 74009 Subs Hosp L2
[2022-10-29] MEDS: Phenobarbital 20 MG/5 ML UDC 60 MG GT ×2 (09:12→21:15)
[2022-10-29] MEDS: Cholecalciferol (VIT D3) 25 MCG TABLET (1,000 UNITS) GT (09:12)
[2022-10-29] MEDS: Metoclopramide 10 MG/10 ML UDC GT ×3 (09:12→21:10)
[2022-10-29] MEDS: Doxazosin 1 MG Tablet 2 MG GT (09:12)
[2022-10-29] MEDS: ESOMEPRAZOLE MAGNESIUM 40 MG SUSPDR.PKT GT (09:12)
[2022-10-29] MEDS: Famotidine 20 MG Tablet GT (09:12)
[2022-10-29] MEDS: PLECANATIDE 3 MG TABLET PO (09:12)
--- NOTE | 2022-10-29 10:07 | WOUNDNOTE ---
Colostomy appliance is intact to the LLQ. stoma has been prolapsed for quite some time. appliance emptied for 75cc's brown liquid stool. appliance remains intact. no sign of leakage noted. will monitor. patient appears comfortable at this time.
[2022-10-29] MEDS: Loratadine 10 MG Tablet GT (15:28)
[2022-10-29] MEDS: Chlorhexidine 15 ML PO (21:10)
--- NOTE | 2022-10-29 22:51 | CPS ---
Used patients own cough assist before placing on vent at [facility] settings for the night.
[2022-10-30] VITALS (10 sets, daily range): BP systolic 114–143; BP diastolic 79–98; PULSE 55–136; RESP 11–26; TEMP 36.2–36.7; O2SAT 93–100
[2022-10-30] MEDS: LORazepam 1 MG Tablet 2 MG GT ×2 (00:52→21:42)
[2022-10-30] MEDS: GABAPENTIN 250 MG/5 ML SOLUTION GT ×4 (05:30→23:26)
[2022-10-30] MEDS: PLECANATIDE 3 MG TABLET PO (08:04)
[2022-10-30] MEDS: Metoclopramide 10 MG/10 ML UDC GT ×3 (08:04→20:09)
[2022-10-30] MEDS: Famotidine 20 MG Tablet GT (08:05)
[2022-10-30] MEDS: Doxazosin 1 MG Tablet 2 MG GT (08:05)
[2022-10-30] MEDS: ESOMEPRAZOLE MAGNESIUM 40 MG SUSPDR.PKT GT (08:05)
--- NOTE | 2022-10-30 08:05 | CASEMGMT ---
Social Work Pt's parents, Hazel Diaz, are pt's guardians. Guardianship document is scanned into [employer]. CARMINE Jenkins
[2022-10-30] MEDS: Cholecalciferol (VIT D3) 25 MCG TABLET (1,000 UNITS) GT (08:06)
[2022-10-30] MEDS: Phenobarbital 20 MG/5 ML UDC 60 MG GT ×2 (10:03→20:11)
[2022-10-30] MEDS: Chlorhexidine 15 ML PO ×2 (10:06→20:12)
--- NOTE | 2022-10-30 10:30 | PN_ITS ---
Subjective Subjective Patient seen and examined. He was resting calmly. Unable to do review of systems. He is here for respite care. No active issues, per discussion with nurse. Objective Data Objective Data Vital Signs: Vital Signs Temp Pulse Resp BP Pulse Ox O2 Del Method O2 Flow Rate 97.9 F 73 18 124/98 H 99 Mechanical Ventilator 5 10/30/22 09:00 10/30/22 09:00 10/30/22 09:00 10/30/22 09:00 10/30/22 09:00 10/30/22 09:00 10/30/22 07:15 FiO2 28 10/30/22 09:00 Oxygen Flow Rate (L/min) 5 Oxygen Delivery Method Mechanical Ventilator Weight: 167 lb 8.821 oz Body Mass Index (BMI) 32.8 Intake & Output: Intake and Output for Last 24 Hours 10/28/22 10/29/22 10/30/22 23:59 23:59 23:59 Intake Total 1979 / 1979 1221 / 1421 200 / 200 Output Total 600 / 600 325 / 325 Balance 1380 / 1380 896 / 1096 200 / 200 Physical Exam Const Constitutional Narrative: sleeping comfortably HEENT normocephalic and moist oral mucous membranes HEENT Narrative: macroglossia Eyes PERRL and EOMs intact bilaterally Neck no lymphadenopathy Lymph Lymphatic: no lymphadenopathy noted and no lymphedema noted Resp Resp Narrative: on ventilator via tracheostomy. 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 Tracheostomy in place. * Brought in for respite care as as well as been developed cancer surgery * Vent settings: Tidal volume 350, respiratory rate of 10, PEEP of 8 and process possible of 10 cm of water. * Respiratory therapist on board. * Breathing treatments bronchodilators. Titrate oxygen to maintain saturation above 90%. * #Cerebral palsy with positive quadriplegia: On baclofen, gabapentin and Ativan. #Seizure disorder: On phenobarbital and gabapentin as well as Ativan. #Chronic dysphagia: H * as not PEG tube in place. Tube feeds with Jevity 1.2 nery/ml * Can be increased to 65 cc/h during the day. This is slowed down to 45 mils per hour at night. Has water flushes of about 100 cc/h which is given mostly during the day. * Mother does not give any water flushes from 12 AM to 6 AM to enable him sleep. * * DVT prophylaxis: low risk. Family dOESNT want him to be on any DVT prophylaxis as he is just here fore respite care. Charges/Coding Visit Charges Inpatient E&M: 87899 Subs Hosp L2
--- NOTE | 2022-10-30 10:37 | WOUNDNOTE ---
Pt sitting up in his wheelchair. ostomy appliance remains intact. no sign of leakage noted. small amount of liquid brown stool noted. will monitor. patient appears quite comfortable at this time.
[2022-10-30] MEDS: Loratadine 10 MG Tablet GT (16:56)
[2022-10-30] MEDS: Acetaminophen 650 MG/20 ML UDC GT (18:17)
[2022-10-30] MEDS: guaiFENesin 10 ML UDC (200MG/10ML) GT (18:18)
--- NOTE | 2022-10-30 20:00 | CPS ---
Addendum entered by Michael Alvarez 10/30/22 20:45: Pt on 5 lpm not 3.5 lpm of O2 Original Note: Performed Cough assist with pt prior to suctioning. Placed back on HME afterword with 3.5 lpm
[2022-10-31] VITALS (10 sets, daily range): BP systolic 96–133; BP diastolic 73–91; PULSE 68–120; RESP 14–20; TEMP 36.3–36.7; O2SAT 93–97
[2022-10-31] MEDS: GABAPENTIN 250 MG/5 ML SOLUTION GT ×3 (05:03→16:51)
--- NOTE | 2022-10-31 07:32 | PCM.PN.HOSP ---
Reason for Visit Reason for Visit: Diagnoses Chronic respiratory failure with hypoxia (10/27/22) Subjective Subjective Patient is a 42-year-old gentleman with history of cerebral palsy with quadriplegia and chronic respiratory failure vent dependent admitted for respite care while his father undergoes surgery at an outside facility Objective Data Objective Data Vital Signs: Vital Signs Temp Pulse Resp BP Pulse Ox O2 Del Method O2 Flow Rate 97.5 F L 80 20 H 96/73 94 T-piece 5 10/31/22 05:00 10/31/22 05:00 10/31/22 05:00 10/31/22 05:00 10/31/22 06:00 10/31/22 06:00 10/31/22 05:00 FiO2 5 10/31/22 06:00 Oxygen Flow Rate (L/min) 5 Oxygen Delivery Method T-piece Weight: 76 kg Body Mass Index (BMI) 32.8 Intake & Output: Intake and Output for Last 24 Hours 10/29/22 10/30/22 10/31/22 23:59 23:59 23:59 Intake Total 1221 / 1421 200 / 200 Output Total 325 / 325 200 / 200 125 / 125 Balance 896 / 1096 0 / 0 -125 / -125 Physical Exam Narrative GENERAL: Noncommunicative HEENT: Trach in place EYES; Anicteric, Normal Conjunctiva NECK; supple, normal thyroid, RESPIRATORY: Diminished to auscultation CARDIOVASCULAR: Regular S1 S2, GI: soft, normoactive bowel sounds, EXTREMITIES: Contractures, NEURO: Awake; noncommunicating Assessment & Plan Assessment/Plan (1) Chronic respiratory failure with hypoxia: PLAN: Plan Patient is a 42-year-old gentleman with history of cerebral palsy with quadriplegia and chronic respiratory failure vent dependent admitted for respite care while his father undergoes surgery at an outside facility 1. Chronic respiratory failure ? Secondary to cerebral palsy patient is vent dependent. Current vent settings Tidal volume 350, respiratory rate of 10, PEEP of 8 and pressure support of 10 cm. Respiratory therapy on board 2. Cerebral palsy ? With spastic quadriplegia did continue supportive care including baclofen and gabapentin and Ativan 3. Seizure disorder ? On phenobarb and gabapentin and Ativan 4. Chronic dysphagia ? Status post PEG tube. Currently on Jevity 1.2 nery/ml rate 65 cc during the day and 45 cc. Denies with 100 cc water flushes throughout the day 5. GERD ? On PPI continue 6. DVT prophylaxis ? Family apparently declined DVT prophylaxis since patient is only here for respite care Time spent in the patient's overall evaluation,decision-making process, review of diagnostic data, adjustment of management, discussion with other providers, nursing nursing and ancillary staff involved in patient's care documentation, 35 Minutes Charges/Coding Visit Charges Inpatient E&M: 40940 Subs Hosp L2
[2022-10-31] MEDS: Doxazosin 1 MG Tablet 2 MG GT (08:17)
[2022-10-31] MEDS: Phenobarbital 20 MG/5 ML UDC 60 MG GT ×2 (08:17→20:46)
[2022-10-31] MEDS: PLECANATIDE 3 MG TABLET PO (08:18)
[2022-10-31] MEDS: Famotidine 20 MG Tablet GT (08:18)
[2022-10-31] MEDS: Metoclopramide 10 MG/10 ML UDC GT ×3 (08:18→20:46)
[2022-10-31] MEDS: ESOMEPRAZOLE MAGNESIUM 40 MG SUSPDR.PKT GT (08:18)
[2022-10-31] MEDS: Cholecalciferol (VIT D3) 25 MCG TABLET (1,000 UNITS) GT (08:19)
--- NOTE | 2022-10-31 15:15 | CPS ---
Vest done prior to cough assist.
--- NOTE | 2022-10-31 15:16 | CPS ---
Vent on stand by at the bedside.
[2022-10-31] MEDS: Loratadine 10 MG Tablet GT (16:50)
[2022-11-01] VITALS (9 sets, daily range): BP systolic 108–119; BP diastolic 73–90; PULSE 49–133; RESP 10–20; TEMP 36.1–36.6; O2SAT 93–99
[2022-11-01] MEDS: GABAPENTIN 250 MG/5 ML SOLUTION GT ×5 (00:55→23:33)
--- NOTE | 2022-11-01 05:18 | CPS ---
Vent on stby in room. Pt placed on 4 LPM O2 with HME at this time
--- NOTE | 2022-11-01 07:27 | PCM.PN.HOSP ---
Reason for Visit Reason for Visit: Diagnoses Chronic respiratory failure with hypoxia (10/27/22) Subjective Subjective Patient seen sleeping comfortably. Per nursing staff no events overnight Objective Data Objective Data Vital Signs: Vital Signs Temp Pulse Resp BP Pulse Ox O2 Del Method O2 Flow Rate 96.9 F L 70 20 H 117/90 H 95 T-piece 5 11/01/22 03:00 11/01/22 05:12 11/01/22 03:00 11/01/22 03:00 11/01/22 05:12 11/01/22 03:00 11/01/22 03:00 FiO2 28 11/01/22 02:00 Oxygen Flow Rate (L/min) 5 Oxygen Delivery Method T-piece Weight: 76 kg Body Mass Index (BMI) 32.8 Intake & Output: Intake and Output for Last 24 Hours 10/30/22 10/31/22 11/01/22 23:59 23:59 23:59 Intake Total 200 / 200 150 / 150 0 / 0 Output Total 200 / 200 225 / 225 Balance 0 / 0 -75 / -75 0 / 0 Physical Exam Narrative GENERAL: Noncommunicative HEENT: Trach in place EYES; Anicteric, Normal Conjunctiva NECK; supple, normal thyroid, RESPIRATORY: Diminished to auscultation CARDIOVASCULAR: Regular S1 S2, GI: soft, normoactive bowel sounds, EXTREMITIES: Contractures, NEURO: Awake; noncommunicating Assessment & Plan Assessment/Plan (1) Chronic respiratory failure with hypoxia: PLAN: Plan Patient is a 42-year-old gentleman with history of cerebral palsy with quadriplegia and chronic respiratory failure vent dependent admitted for respite care while his father undergoes surgery at an outside facility 1. Chronic respiratory failure ? Secondary to cerebral palsy patient is vent dependent. Current vent settings Tidal volume 350, respiratory rate of 10, PEEP of 8 and pressure support of 10 cm. Respiratory therapy on board 2. Cerebral palsy ? With spastic quadriplegia did continue supportive care including baclofen and gabapentin and Ativan 3. Seizure disorder ? On phenobarb and gabapentin and Ativan 4. Chronic dysphagia ? Status post PEG tube. Currently on Jevity 1.2 nery/ml rate 65 cc during the day and 45 cc. Denies with 100 cc water flushes throughout the day 5. GERD ? On PPI continue 6. DVT prophylaxis ? Family apparently declined DVT prophylaxis since patient is only here for respite care Time spent in the patient's overall evaluation,decision-making process, review of diagnostic data, adjustment of management, discussion with other providers, nursing nursing and ancillary staff involved in patient's care documentation, 35 Minutes Charges/Coding Visit Charges Inpatient E&M: 20753 Subs Hosp L2
[2022-11-01] MEDS: Doxazosin 1 MG Tablet 2 MG GT (12:04)
[2022-11-01] MEDS: Famotidine 20 MG Tablet GT (12:05)
[2022-11-01] MEDS: ESOMEPRAZOLE MAGNESIUM 40 MG SUSPDR.PKT GT (12:05)
[2022-11-01] MEDS: Metoclopramide 10 MG/10 ML UDC GT ×3 (12:06→20:14)
[2022-11-01] MEDS: PLECANATIDE 3 MG TABLET PO (12:06)
[2022-11-01] MEDS: Cholecalciferol (VIT D3) 25 MCG TABLET (1,000 UNITS) GT (12:07)
[2022-11-01] MEDS: Chlorhexidine 15 ML PO ×2 (12:08→20:15)
[2022-11-01] MEDS: Phenobarbital 20 MG/5 ML UDC 60 MG GT ×2 (12:35→20:14)
[2022-11-01] MEDS: Loratadine 10 MG Tablet GT (17:32)
--- NOTE | 2022-11-01 23:08 | CPS ---
Patient agitated HR in the 130's cough assist not done at this time.
[2022-11-02] VITALS (11 sets, daily range): BP systolic 108–133; BP diastolic 67–100; PULSE 67–100; RESP 12–20; TEMP 36.1–36.6; O2SAT 92–100
[2022-11-02] MEDS: GABAPENTIN 250 MG/5 ML SOLUTION GT ×3 (05:32→17:14)
--- NOTE | 2022-11-02 05:41 | NURSING ---
Tube feeding increased to 65cc/hr with q1h 100cc flushes.
--- NOTE | 2022-11-02 07:55 | PCM.PN.HOSP ---
Reason for Visit Reason for Visit: Respite care Subjective Subjective Patient is a six 42-year-old white male who was directly admitted from home for respite care on 10/27/2022. The patient is ventilator dependent due to chronic respiratory failure from cerebral palsy with spastic quadriplegia and lives with his parents. He was brought in for respite care as his father is having surgery for esophageal cancer chair at [facility]. Overall he is remained incredibly stable and has had no issues for his hospitalization. No issues overnight. Nursing states he is incredibly stable and has no needs. Objective Data Objective Data Vital Signs: Vital Signs Temp Pulse Resp BP Pulse Ox O2 Del Method O2 Flow Rate 97.2 F L 89 20 H 109/67 97 T-piece 5 11/02/22 03:00 11/02/22 05:11 11/02/22 05:11 11/02/22 03:00 11/02/22 07:00 11/02/22 07:00 11/02/22 07:00 FiO2 28 11/02/22 03:58 Oxygen Flow Rate (L/min) 5 Oxygen Delivery Method T-piece Weight: 76 kg Body Mass Index (BMI) 32.8 Intake & Output: Intake and Output for Last 24 Hours 10/31/22 11/01/22 11/02/22 23:59 23:59 23:59 Intake Total 150 / 150 100 / 100 100 / 100 Output Total 225 / 225 525 / 525 200 / 200 Balance -75 / -75 -425 / -425 -100 / -100 Physical Exam Const alert and no apparent distress; Negative for average body habitus or healthy appearing Constitutional Narrative: Obese, middle-aged, white male, lying in bed, significant contractures noted HEENT head/scalp atraumatic, moist oral mucous membranes and oropharynx normal Resp normal respiratory effort, no retractions, no use of accessory muscles and clear to auscultation bilaterally Auscultation: Negative for crackles, rhonchi or wheezes Cardio regular rate, regular rhythm, S1 normal heart sound, S2 normal heart sound, no murmurs, no rub, no gallops and no clicks GI normal to inspection, nondistended, normoactive bowel sounds, soft to palpation and non-tender Extremity no clubbing, cyanosis or edema Skin Skin Narrative: PEG tube in place and appears to be clean and dry and intact Neuro Neuro Narrative: Significant contractures noted in all 4 extremities related to cerebral palsy Sensorium / Orientation: awake and alert Speech: Negative for speech normal Motor Exam: Negative for strength 5/5 throughout Psych Psych Narrative: Unable to his status however patient appears calm at this time Assessment & Plan Assessment/Plan (1) Chronic respiratory failure with hypoxia: PLAN: Plan Chronic hypoxic respiratory failure secondary to cerebral palsy -Chronic trach and at baseline patient is T-piece during the day and trilogy vent dependent at night -Currently on baseline of 5 L T-piece -Monitor clinically for any signs of infection as patient has had recurrent infections previously -Continue with aggressive pulmonary toilet as ordered -Continue home guaifenesin History of upper GI bleed secondary to gastric ulcers/esophagitis -Continue home famotidine -Continue home esomeprazole History of candidal esophagitis -Completed Diflucan previously Chronic anemia -Hemoglobin is previously stable between 10 and 11 Chronic constipation -Continue home plecanatide History of seizure disorder -Continue home phenobarbital Cerebral palsy with spastic quadriplegia -Continue home medications -Continue tube feed via PEG DVT prophylaxis -SCDs CODE STATUS -Full code Charges/Coding Visit Charges Inpatient E&M: 45895 Subs Hosp L1
[2022-11-02] MEDS: ESOMEPRAZOLE MAGNESIUM 40 MG SUSPDR.PKT GT (08:18)
[2022-11-02] MEDS: Phenobarbital 20 MG/5 ML UDC 60 MG GT ×2 (08:18→20:33)
[2022-11-02] MEDS: PLECANATIDE 3 MG TABLET PO (08:19)
[2022-11-02] MEDS: Metoclopramide 10 MG/10 ML UDC GT ×3 (08:19→20:33)
[2022-11-02] MEDS: Famotidine 20 MG Tablet GT (08:19)
[2022-11-02] MEDS: Cholecalciferol (VIT D3) 25 MCG TABLET (1,000 UNITS) GT (08:19)
[2022-11-02] MEDS: Doxazosin 1 MG Tablet 2 MG GT (08:33)
[2022-11-02] MEDS: guaiFENesin 10 ML UDC (200MG/10ML) GT (12:31)
[2022-11-02] MEDS: Mag Hydrox/Al Hydrox/Simeth 30 ML UDC 5 ML GT (12:31)
[2022-11-02] MEDS: Acetaminophen 650 MG/20 ML UDC GT (12:32)
[2022-11-02] MEDS: Loratadine 10 MG Tablet GT (17:13)
[2022-11-02] MEDS: Chlorhexidine 15 ML PO (20:34)
[2022-11-03] VITALS (9 sets, daily range): BP systolic 112–135; BP diastolic 86–95; PULSE 70–95; RESP 16–18; TEMP 36–36.4; O2SAT 95–100
[2022-11-03] MEDS: GABAPENTIN 250 MG/5 ML SOLUTION GT ×4 (00:16→17:55)
[2022-11-03] MEDS: Metoclopramide 10 MG/10 ML UDC GT ×3 (08:36→20:27)
[2022-11-03] MEDS: PLECANATIDE 3 MG TABLET PO (08:36)
[2022-11-03] MEDS: Doxazosin 1 MG Tablet 2 MG GT (08:37)
[2022-11-03] MEDS: Cholecalciferol (VIT D3) 25 MCG TABLET (1,000 UNITS) GT (08:37)
[2022-11-03] MEDS: Famotidine 20 MG Tablet GT (08:37)
[2022-11-03] MEDS: ESOMEPRAZOLE MAGNESIUM 40 MG SUSPDR.PKT GT (08:38)
[2022-11-03] MEDS: Phenobarbital 20 MG/5 ML UDC 60 MG GT ×2 (08:52→20:27)
--- NOTE | 2022-11-03 09:16 | WOUNDNOTE ---
Pt resting in bed with eyes closed. appears to be comfortable. removed the colostomy appliance. there was a small amount of liquid brown stool in the appliance. stoma is large and prolapsed. 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 this is not new. peristomal skin is intact. gently cleansed with warm water. pat dry. applied skin prep. once dried, placed paste ring around stoma and applied a new ostomy appliance. placed the Coloplast adhesive strips to the outer edges of the appliance to better mold to the rounded abdomen. patient tolerated well. will continue to monitor.
[2022-11-03] MEDS: Chlorhexidine 15 ML PO ×2 (12:08→20:27)
--- NOTE | 2022-11-03 13:38 | PCM.PN.HOSP ---
Reason for Visit Reason for Visit: Respite care Subjective Subjective No issues overnight. Family does not want any lab work drawn. Objective Data Objective Data Vital Signs: Vital Signs Temp Pulse Resp BP Pulse Ox O2 Del Method O2 Flow Rate 97.0 F L 88 18 133/95 H 96 T-piece 6 11/03/22 09:00 11/03/22 09:00 11/03/22 09:00 11/03/22 09:00 11/03/22 09:00 11/03/22 10:00 11/03/22 10:00 FiO2 28 11/03/22 04:00 Oxygen Flow Rate (L/min) 6 Oxygen Delivery Method T-piece Weight: 76 kg Body Mass Index (BMI) 32.8 Intake & Output: Intake and Output for Last 24 Hours 11/01/22 11/02/22 11/03/22 23:59 23:59 23:59 Intake Total 100 / 100 400 / 550 550 / 550 Output Total 525 / 525 350 / 450 175 / 175 Balance -425 / -425 50 / 100 375 / 375 Physical Exam Const alert and no apparent distress; Negative for average body habitus or healthy appearing Constitutional Narrative: Obese, middle-aged, white male, lying in bed, significant contractures noted HEENT moist oral mucous membranes Neck Neck Narrative: Trach in place Resp normal respiratory effort, no retractions, no use of accessory muscles and clear to auscultation bilaterally Resp Narrative: Patient on T-piece Auscultation: Negative for crackles, rhonchi or wheezes Cardio regular rate, regular rhythm, S1 normal heart sound, S2 normal heart sound, no murmurs, no rub, no gallops and no clicks GI normal to inspection, nondistended, normoactive bowel sounds, soft to palpation and non-tender GI Narrative: PEG tube in place Extremity normal capillary refill, no clubbing, cyanosis or edema and no calf tenderness Neuro Neuro Narrative: Significant contractures noted in all 4 extremities related to cerebral palsy Sensorium / Orientation: awake and alert Speech: Negative for speech normal Motor Exam: Negative for strength 5/5 throughout Psych Psych Narrative: Unable to his status however patient appears calm at this time Assessment & Plan Assessment/Plan (1) Chronic respiratory failure with hypoxia: PLAN: Plan Chronic hypoxic respiratory failure secondary to cerebral palsy -Chronic trach and at baseline patient is T-piece during the day and trilogy vent dependent at night -Currently on baseline of 5-6 L T-piece -Monitor clinically for any signs of infection as patient has had recurrent infections previously -Continue with aggressive pulmonary toilet as ordered -Continue home guaifenesin History of upper GI bleed secondary to gastric ulcers/esophagitis -Continue home famotidine -Continue home esomeprazole History of candidal esophagitis -Completed Diflucan previously Chronic anemia -Hemoglobin is previously stable between 10 and 11 Chronic constipation -Continue home plecanatide History of seizure disorder -Continue home phenobarbital Cerebral palsy with spastic quadriplegia -Continue home medications -Continue tube feed via PEG DVT prophylaxis -SCDs CODE STATUS -Full code Disposition: -Awaiting family being able to medically take him home and care for him after father returns home from surgery Charges/Coding Visit Charges Inpatient E&M: 61628 Subs Hosp L1
[2022-11-03] MEDS: Loratadine 10 MG Tablet GT (16:35)
[2022-11-04] VITALS (10 sets, daily range): BP systolic 113–166; BP diastolic 77–97; PULSE 73–108; RESP 10–23; TEMP 36.3–36.7; O2SAT 94–98
[2022-11-04] MEDS: GABAPENTIN 250 MG/5 ML SOLUTION GT ×5 (00:03→23:45)
[2022-11-04] MEDS: Doxazosin 1 MG Tablet 2 MG GT (08:55)
[2022-11-04] MEDS: Metoclopramide 10 MG/10 ML UDC GT ×3 (08:55→20:54)
[2022-11-04] MEDS: PLECANATIDE 3 MG TABLET PO (08:56)
[2022-11-04] MEDS: Famotidine 20 MG Tablet GT (08:56)
[2022-11-04] MEDS: Cholecalciferol (VIT D3) 25 MCG TABLET (1,000 UNITS) GT (08:56)
[2022-11-04] MEDS: ESOMEPRAZOLE MAGNESIUM 40 MG SUSPDR.PKT GT (08:56)
[2022-11-04] MEDS: guaiFENesin 10 ML UDC (200MG/10ML) GT (09:01)
[2022-11-04] MEDS: Phenobarbital 20 MG/5 ML UDC 60 MG GT ×2 (09:36→20:54)
--- NOTE | 2022-11-04 12:26 | CPS ---
Cough assist done after vest treatment.
--- NOTE | 2022-11-04 14:05 | PCM.PN.HOSP ---
Reason for Visit Reason for Visit: Respite care Subjective Subjective No issues overnight. Objective Data Objective Data Vital Signs: Vital Signs Temp Pulse Resp BP Pulse Ox O2 Del Method O2 Flow Rate 97.9 F 88 18 166/97 H 97 T-piece 6 11/04/22 09:00 11/04/22 09:00 11/04/22 09:00 11/04/22 09:00 11/04/22 09:00 11/04/22 09:00 11/04/22 09:00 FiO2 28 11/04/22 03:00 Oxygen Flow Rate (L/min) 6 Oxygen Delivery Method T-piece Weight: 76 kg Body Mass Index (BMI) 32.8 Intake & Output: Intake and Output for Last 24 Hours 11/02/22 11/03/22 11/04/22 23:59 23:59 23:59 Intake Total 400 / 550 600 / 600 100 / 100 Output Total 350 / 450 375 / 375 Balance 50 / 100 225 / 225 100 / 100 Physical Exam Const alert and no apparent distress Constitutional Narrative: Obese, middle-aged, white male, lying in bed, eyes are open and patient appears comfortable Resp normal respiratory effort, no retractions and no use of accessory muscles Cardio regular rate, regular rhythm, S1 normal heart sound, S2 normal heart sound, no murmurs, no rub, no gallops and no clicks GI normal to inspection, nondistended, normoactive bowel sounds and soft to palpation Assessment & Plan Assessment/Plan (1) Chronic respiratory failure with hypoxia: PLAN: Plan Chronic hypoxic respiratory failure secondary to cerebral palsy -Chronic trach and at baseline patient is T-piece during the day and trilogy vent dependent at night -Currently on baseline of 5-6 L T-piece -Monitor clinically for any signs of infection as patient has had recurrent infections previously -Continue with aggressive pulmonary toilet as ordered -Continue home guaifenesin History of upper GI bleed secondary to gastric ulcers/esophagitis -Continue home famotidine -Continue home esomeprazole History of candidal esophagitis -Completed Diflucan previously Chronic anemia -Hemoglobin is previously stable between 10 and 11 Chronic constipation -Continue home plecanatide History of seizure disorder -Continue home phenobarbital Cerebral palsy with spastic quadriplegia -Continue home medications -Continue tube feed via PEG DVT prophylaxis -SCDs CODE STATUS -Full code Disposition: -It sounds like family will be able to take him home tomorrow. Charges/Coding Visit Charges Inpatient E&M: 86000 Subs Hosp L1
[2022-11-04] MEDS: Loratadine 10 MG Tablet GT (16:48)
[2022-11-04] MEDS: Chlorhexidine 15 ML PO (20:56)
--- NOTE | 2022-11-04 22:01 | NURSING ---
Tube feed turned down to 45ml/hr for bedtime and flushes stopped for the night.
[2022-11-05 01:51] VITALS: PULSE 96; RESP 12; O2SAT 94
[2022-11-05 02:00] VITALS: BP 102/70; PULSE 89; RESP 18; TEMP 36.6; O2SAT 94
[2022-11-05 04:47] VITALS: PULSE 104; RESP 16; O2SAT 95
[2022-11-05] MEDS: GABAPENTIN 250 MG/5 ML SOLUTION GT ×2 (06:42→11:25)
[2022-11-05 08:00] VITALS: BP 137/104; PULSE 90; RESP 18; TEMP 36.8; O2SAT 93
[2022-11-05 08:36] VITALS: O2SAT 9
[2022-11-05] MEDS: Cholecalciferol (VIT D3) 25 MCG TABLET (1,000 UNITS) GT (08:44)
[2022-11-05] MEDS: PLECANATIDE 3 MG TABLET PO (08:44)
[2022-11-05] MEDS: Metoclopramide 10 MG/10 ML UDC GT (08:44)
[2022-11-05] MEDS: ESOMEPRAZOLE MAGNESIUM 40 MG SUSPDR.PKT GT (08:44)
[2022-11-05] MEDS: Doxazosin 1 MG Tablet 2 MG GT (08:44)
[2022-11-05] MEDS: Chlorhexidine 15 ML PO (08:45)
[2022-11-05] MEDS: Famotidine 20 MG Tablet GT (08:45)
[2022-11-05] MEDS: Phenobarbital 20 MG/5 ML UDC 60 MG GT (08:49)
--- NOTE | 2022-11-05 11:36 | PCM.DC.SUM ---
Providers Date of Admission: 10/27/22 Date of Discharge: 11/05/22 Primary Care Physician: Dr. Timmy Conn MD Reason For Visit: RESPITE STAY Diagnosis Discharge Diagnosis (1) Chronic respiratory failure with hypoxia: Status: Chronic Code(s): J96.11 - Chronic respiratory failure with hypoxia Medications at Discharge Home Medications phenobarbital 20 mg/5 mL (4 mg/mL) oral elixir 60 mg G-tube 0830,2100 SEIZURES 02/19/17 metoclopramide HCl 5 mg/5 mL oral solution 10 mg feeding tube 0830,1600,2100 STOMACH 09/16/18 Cough Assist 1 dose .Route .MEDSUPPLY assist in clearing secretions 12/25/18 oxygen concentrator 1 dose .Route .MEDSUPPLY second unit, 4 LPM cont all modalities 12/25/18 gabapentin 250 mg/5 mL oral solution 500 mg G-tube 0000,0600,1200,1800 SEIZURES 09/26/19 albuterol sulfate 2.5 mg/3 mL (0.083 %) solution for nebulization 2.5 mg inhalation Q4H PRN Sob &/Or Wheezing 11/27/20 baclofen 5 mg/5 mL oral solution 4 mg G-tube 0000,0600,1200,1800 Spasticity 11/27/20 esomeprazole magnesium 40 mg granules delayed release for susp (Nexium Packet) 40 mg G-tube 0830 ACID REFLUX 11/27/20 famotidine 20 mg tablet (Pepcid) 20 mg feeding tube 0830 ACID REFLUX 11/27/20 lactose-reduced food with fiber 0.06 gram-1.2 kcal/mL oral liquid 1,000 ml G-tube DAILY NUTRITION 11/27/20 plecanatide 3 mg tablet 3 mg G-tube 0830 BOWELS 11/27/20 doxazosin 2 mg tablet 2 mg PO 0830 BLOOD PRESSURE 11/30/21 cholecalciferol (vitamin D3) 10 mcg/mL (400 unit/mL) oral drops 15 mcg feeding tube 0830 SUPPLEMENT 03/24/22 guaifenesin 200 mg/5 mL oral liquid 200 mg feeding tube 0830 PRN COUGH/CONGESTION 03/24/22 acetaminophen 650 mg/20.3 mL oral suspension 650 mg feeding tube 0000,0600,1200,1800 PRN PAIN 10/24/22 aluminum-mag hydroxide-simethicone 200 mg-200 mg-20 mg/5 mL oral susp 5 ml PO 0000,0600,1200,1800 PRN ANTACID 10/24/22 cetirizine 1 mg/mL oral solution 10 mg feeding tube 1600 ALLERGIES 10/24/22 lorazepam 2 mg/mL injection solution (Ativan) 1 mg IM DAILY PRN AGITATION 10/24/22 Hospital Course Operations None Summary of Care Provided Minutes Spent on Discharge: 18 Hospital Course: Patient is a 42-year-old white male who was directly admitted from home for respite care on 10/27/2022. The patient is ventilator dependent due to chronic respiratory failure from cerebral palsy with spastic quadriplegia and lives with his parents. He was brought in for respite care as his father had surgery for esophageal cancer at [facility]. Overall he is remained incredibly stable and has had no issues for his hospitalization. He was maintained on his home respiratory care, medications, and tube feed without any issues. Family was able to pick him up and take him home for ongoing care as his father is stabilized at home from the hospital on 11/05/2022. Discharge diagnoses: Chronic hypoxic respiratory failure Spastic cerebral palsy-quadriplegia History of upper GI bleed secondary to gastric ulcers History of esophagitis History of candidal esophagitis Chronic anemia Chronic constipation History of seizure disorder Physical Exam Const alert and no apparent distress; Negative for average body habitus or healthy appearing Constitutional Narrative: Obese, middle-aged, white male, lying in bed, eyes are open and patient appears comfortable General Appearance: comfortable and well kempt Orientation / Consciousness: awake Exam Limitations: other limitations Nutritional Appearance: obese HEENT normocephalic, head/scalp atraumatic, moist oral mucous membranes and oropharynx normal Neck Neck Narrative: Trach in place Resp normal respiratory effort, no retractions, no use of accessory muscles and clear to auscultation bilaterally Resp Narrative: Patient on T-piece Auscultation: Negative for crackles, rhonchi or wheezes Cardio regular rate, regular rhythm, S1 normal heart sound, S2 normal heart sound, no murmurs, no rub, no gallops and no clicks GI normal to inspection, nondistended, normoactive bowel sounds, soft to palpation and non-tender GI Narrative: PEG tube in place-clean and dry with no surrounding irritation or drainage Extremity normal capillary refill, no clubbing, cyanosis or edema and no calf tenderness Neuro Neuro Narrative: Significant contractures noted in all 4 extremities related to cerebral palsy Sensorium / Orientation: awake and alert Speech: Negative for speech normal Motor Exam: Negative for strength 5/5 throughout Psych Psych Narrative: Unable to his status however patient appears calm at this time Weight / BMI Weight Weight: 76 kg Body Mass Index (BMI) 32.8 Meaningful Use Info Meaningful Use Diagnoses (Choose all that apply): None applicable Discharge Plan Admission Admit Date/Time: 10/27/22 14:12 Primary Reason for Your Visit: Respite care Attending Provider: Vanessa Roberts Primary Care Provider: Timmy Conn Consulting Providers: Camacho Gonzalez; Barry Young; Cindy Alexandre; Michael Posadas Discharge Orders/Prescriptions Prescriptions: Continued albuterol sulfate 2.5 mg /3 mL (0.083 %) solution for nebulization 2.5 mg inhalation Q4H PRN (Reason: Sob &/Or Wheezing) esomeprazole magnesium [Nexium Packet] [address] for susp in packet 40 mg G-tube 0830 famotidine [Pepcid] 20 mg tablet 20 mg feeding tube 0830 metoclopramide HCl 5 mg/5 mL solution 10 mg feeding tube 0830,1600,2100 phenobarbital 20 MG/5 ML elixir 60 mg G-tube 0830,2100 Cough Assist 1 dose .Route .MEDSUPPLY Rx Instructions: Inspiratory and Expiratory times of 20-40 seconds with a 1-2 second pause. oxygen concentrator 1 dose .Route .MEDSUPPLY Rx Instructions: As directed baclofen 5 mg/5 mL solution 4 mg G-tube 0000,0600,1200,1800 lactose-reduced food with fibr 0.06 gram-1.2 kcal/mL liquid 1,000 ml G-tube DAILY Patient Comments: PER PT HOME MED LIST: JEVITY 1.2 BENNY/ML 4.5-5 CARTONS PER DAY. APPROXIMATELY 1 LITER PER DAY. 55ML/HOUR TO 65ML DURING THE DAY. SLOW THIS DOWN TO 45 ML/HOUR AT NIGHT. gabapentin 250 MG/5 ML solution 500 mg G-tube 0000,0600,1200,1800 Patient Comments: PER PT HOME MED LIST: GABAPENTIN DOSING -IF MO'S HEART RATE IS LOW I DON'T ALWAYS GIVE THE WHOLE 10ML GABAPENTIN DOSE MY GUIDES ARE: PULSE <50: I MIGHT WAIT 1 HOUR FOR HIM TO BE MORE AWAKE. GIVE 4 ML PULSE IN THE 50'S: GIVE 5ML OR 6 ML PULSE IN THE 60'S: GIVE 6ML TO 7ML PULSE 69>: GIVE THE WHOLE 10ML plecanatide 3 mg tablet 3 mg GT 0830 doxazosin 2 mg tablet 2 mg GT 0830 cholecalciferol (vitamin D3) 10 mcg/mL (400 unit/mL) drops 15 mcg feeding tube 0830 guaifenesin 200 mg/5 mL liquid 200 mg feeding tube 0830 PRN (Reason: COUGH/CONGESTION) alum-mag hydroxide-simeth 200-200-20 mg/5 mL suspension 5 ml PO 0000,0600,1200,1800 PRN (Reason: ANTACID) acetaminophen 650 mg/20.3 mL suspension 650 mg feeding tube 0000,0600,1200,1800 PRN (Reason: PAIN ) lorazepam [Ativan] 2 mg/mL solution 1 mg IM DAILY PRN (Reason: AGITATION ) cetirizine 1 mg/mL solution 10 mg feeding tube 1600 Referrals / Follow Up: Timmy Conn MD [Primary Care Provider] - See Referral Note (As needed) Disposition Disposition (needs filled in before D/C Order can be placed): Home, Self Care Charges/Coding Visit Charges Inpatient E&M: 35670 Disch Hosp
[2022-11-05 13:30] VITALS: BP 138/93; PULSE 90; RESP 16; TEMP 36.1; O2SAT 93
== END 2022-11-05 13:30 | disposition home or self-care (01) | DRG 208 ==
PROVIDERS: Admitting Provider Internal Medicine; PCP Family Medicine; Visit Provider Internal Medicine
DX: J96.11 Chronic respiratory failure with hypoxia (principal); G80.0 Spastic quadriplegic cerebral palsy; G40.909 Epilepsy, unspecified, not intractable, without status epilepticus; Z93.0 Tracheostomy status; Z93.1 Gastrostomy status; D64.9 Anemia, unspecified; K21.9 Gastro-esophageal reflux disease without esophagitis; K59.09 Other constipation; R13.10 Dysphagia, unspecified; Z75.5 Holiday relief care; Z79.899 Other long term (current) drug therapy
CPT/HCPCS: 31720; 94002; 94003; 94668; 94762

== ENCOUNTER → 2022-11-12 | Outpatient (CLI) | payer MEDICARE, MEDICAID, SELFPAY ==
[2022-11-12 09:19] LABS: Absolute Lymphocyte Count 2.33 X10^3/uL (0.83-4.51); Absolute Neutrophil Count 4.4 X10^3/uL (2.0-7.7); Basophil# 0.01 X10^3/uL; Basophil% 0.1 % (0-1); Eosinophil# 0.33 X10^3/uL; Eosinophils% 4.2 % (0-5); Hematocrit 35.6 % (40-54); Hemoglobin 10.9 g/dL (13.0-16.5); Lymphocyte # 2.33 X10^3/ul (0.83-4.51); Lymphocyte % 29.7 % (19-41); Mean Corp Hgb Conc 30.6 g/dL (32-36); Mean Corpuscular Hgb 26.5 pg (27.0-32.0); Mean Corpuscular Volume 86.6 fL (80-94); Mean Platelet Vol. 10.3 fl (6.2-12.0); Monocyte# 0.76 X10^3/uL; Monocyte% 9.7 % (0-10); NRBC Flagged by Analyzer 0 % (0-5); Neutrophil # 4.39 X10^3/uL (2.7-7.7); Platelet Count 212 K/mm3 (150-450); RBC Distribution Width CV 13.9 % (11.6-14.6); RBC Distribution Width SD 43.8 fl (35.1-43.9); Red Blood Count 4.11 M/mm3 (4.6-6.2); White Blood Count 7.8 K/mm3 (4.4-11.0)
[2022-11-12 09:32] LABS: Anion Gap 5 (5-15); BUN 15 mg/dL (7-18); BUN/Creat Ratio 81.1 RATIO (10-20); Calcium,Total 8.4 mg/dL (8.5-10.1); Chloride 104 mmol/L (98-107); Creatinine, Serum 0.18 mg/dL (0.70-1.30); EST Glomerular Filtration Rate 614 mL/min (>60); Est Glom Filt Rate - Afr Amer 743 mL/min (>60); Glucose 99 mg/dL (74-106); Potassium 3.6 mmol/L (3.5-5.1); Sodium Level 140 mmol/L (136-145)
== END | disposition home or self-care (01) ==
PROVIDERS: PCP Family Medicine; Referring Provider Family Medicine; Visit Provider Family Medicine
DX: E55.9 Vitamin D deficiency, unspecified (principal); K31.84 Gastroparesis
CPT/HCPCS: 80048; 85025

== ENCOUNTER → 2022-12-07 | Outpatient (CLI) | payer MEDICARE, MEDICAID, SELFPAY ==
[2022-12-07 09:33] LABS: Absolute Lymphocyte Count 2.35 X10^3/uL (0.83-4.51); Absolute Neutrophil Count 3.4 X10^3/uL (2.0-7.7); Basophil# 0.02 X10^3/uL; Basophil% 0.3 % (0-1); Eosinophil# 0.36 X10^3/uL; Eosinophils% 5.3 % (0-5); Hematocrit 35.4 % (40-54); Hemoglobin 10.8 g/dL (13.0-16.5); Lymphocyte # 2.35 X10^3/ul (0.83-4.51); Lymphocyte % 34.9 % (19-41); Mean Corp Hgb Conc 30.5 g/dL (32-36); Mean Corpuscular Hgb 26.3 pg (27.0-32.0); Mean Corpuscular Volume 86.3 fL (80-94); Mean Platelet Vol. 10.7 fl (6.2-12.0); Monocyte% 8.9 % (0-10); NRBC Flagged by Analyzer 0 % (0-5); Neutrophil # 3.38 X10^3/uL (2.7-7.7); Neutrophil % 50.3 % (47-70); Platelet Count 208 K/mm3 (150-450); RBC Distribution Width CV 13.9 % (11.6-14.6); RBC Distribution Width SD 43.8 fl (35.1-43.9); White Blood Count 6.7 K/mm3 (4.4-11.0)
[2022-12-07 09:44] LABS: Anion Gap 5 (5-15); BUN 19 mg/dL (7-18); BUN/Creat Ratio 58.1 RATIO (10-20); Calcium,Total 8.3 mg/dL (8.5-10.1); Chloride 104 mmol/L (98-107); Creatinine, Serum 0.33 mg/dL (0.70-1.30); EST Glomerular Filtration Rate 318 mL/min (>60); Est Glom Filt Rate - Afr Amer 385 mL/min (>60); Glucose 100 mg/dL (74-106); Potassium 3.5 mmol/L (3.5-5.1); Sodium Level 139 mmol/L (136-145)
== END | disposition home or self-care (01) ==
LOC: LABSPEC 09:22
PROVIDERS: PCP Family Medicine; Referring Provider Family Medicine; Visit Provider Family Medicine
DX: E55.9 Vitamin D deficiency, unspecified (principal); K31.84 Gastroparesis
CPT/HCPCS: 80048; 85025

== ENCOUNTER 2022-12-10 09:36 | Inpatient (IN) | payer MEDICARE, MEDICAID, SELFPAY ==
[2022-12-10] VITALS (8 sets, daily range): BP systolic 97–140; BP diastolic 69–86; PULSE 65–128; RESP 18–30; TEMP 36.3–37.4; O2SAT 94–99; BMI 40.0; BMI 33.3
--- NOTE | 2022-12-10 09:59 | CT_ITS ---
STUDY: CT ABDOMEN AND PELVIS WITH CONTRAST REASON FOR EXAM: Male, 42 years old. Hematemesis RADIATION DOSAGE (If Supplied By Facility): CTDIvol = ( 17.86 ) mGy, DLP = ( 1196.79 ) mGycm TECHNIQUE: IV 100mL Isovue-300 was administered. Transaxial images were obtained from the dome of the diaphragm to the symphysis pubis. Multiplanar coronal and sagittal images were reformatted. Individualized Dose Optimization Techniques Were Used For This CT. COMPARISON: Prior study dated: 03/29/2022. FINDINGS: Mild atelectasis or scarring in the left lower lung. The visualized portions of the heart are within normal limits. Normal liver. There is non-visualization of the gallbladder, which may be secondary to either contraction or a prior cholecystectomy. Normal spleen. Normal pancreas. Normal bilateral adrenal glands. Gastrostomy tube in the stomach. Normal in caliber small bowel loops. Status post left hemicolectomy with left lower quadrant ostomy unchanged since prior exam. 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 There is non-visualization of the appendix. Dilated thickened rectosigmoid colon with surgical anastomosis proximally unchanged in appearance since the previous exam. No evidence of abdominal aortic aneurysm. No retroperitoneal adenopathy. Small simple cyst in the left kidney. No further follow-up exam is needed. No evidence of hydronephrosis. Markedly distended urinary bladder. Right inguinal hernia containing fat and part of the urinary bladder unchanged since prior exam. Unchanged osseous structures. CT/Abdomen/Pelvis W IV Cont ONLY IMPRESSION: 1. Status post left hemicolectomy with left lower quadrant colostomy. 2. Parastomal herniation of small bowel loops adjacent to colostomy site without evidence of small bowel obstruction. 3. Distention or thickening of the rectal pouch distal to the colostomy sutures unchanged. 4. Otherwise no focal acute inflammatory process. Electronically Signed: Edis Dhaliwal MD at 11:47 EDT ,
--- NOTE | 2022-12-10 10:11 | EDS_ITS ---
HPI HPI - GI History of Present Illness Chief Complaint: GI Bleed Informant: parent Narrative Narrative: Presents from EMS from home concerning coffee-ground emesis x4 since this morning. Parents are currently present. History of cerebral palsy, bedridden. Patient with PEG tube dependent on feedings since 1993. Patient had ostomy due to chronic constipation 2014. Previous baclofen pumps with poor healing therefore abdominal scars. Ended up with tracheostomy 2018. Patient vent dependent at night use a trach mask during the day. Mother reports was normal going to bed this morning with nursing aides noted emesis dark in color. Since then has 3 more episodes. Patient previous PE in 2019 not currently on anticoagulants. Multiple patient is on Nexium currently daily states decreased to this over the summer with PCP. Specialists are at [facility] with surgery. However mother states has seen surgery service here and has had an upper endoscopy here. Has been no fevers no cough. Patient on seizure medications, no seizure activity. Mother reports emptied the colostomy bag yesterday, nonbloody. Prior similar symptoms: Yes PFSH PFSH Medical History Acute dyspnea Anemia in chronic illness Cerebral palsy Chronic respiratory failure Chronic respiratory failure with hypoxia Colostomy prolapse Debility Edema History of seizure disorder Iron deficiency anemia Nonrheumatic mitral valve prolapse Obesity Pseudomonas pneumonia Pulmonary embolism on left (06/14/19) Redundant colon Thrombocytopenia Tracheostomy in place Upper GI bleeding (04/2020) Home Medications phenobarbital 20 mg/5 mL (4 mg/mL) oral elixir 60 mg G-tube 0830,2100 SEIZURES 02/19/17 [History Last Taken 04/24/20 21:00] metoclopramide HCl 5 mg/5 mL oral solution 10 mg feeding tube 0830,1600,2100 STOMACH 09/16/18 [History Last Taken 04/24/20 21:00] Cough Assist 1 dose .Route .MEDSUPPLY assist in clearing secretions 12/25/18 [History Last Taken Unknown] oxygen concentrator 1 dose .Route .MEDSUPPLY second unit, 4 LPM cont all modalities 12/25/18 [History Last Taken Unknown] gabapentin 250 mg/5 mL oral solution 500 mg G-tube 0000,0600,1200,1800 SEIZURES 09/26/19 [History Last Taken 04/25/20 06:00] albuterol sulfate 2.5 mg/3 mL (0.083 %) solution for nebulization 2.5 mg inhalation Q4H PRN Sob &/Or Wheezing 11/27/20 [History Last Taken Unknown] baclofen 5 mg/5 mL oral solution 4 mg G-tube 0000,0600,1200,1800 Spasticity 11/27/20 [History Last Taken Unknown] esomeprazole magnesium 40 mg granules delayed release for susp (Nexium Packet) 40 mg G-tube 0830 ACID REFLUX 11/27/20 [History Last Taken Unknown] famotidine 20 mg tablet (Pepcid) 20 mg feeding tube 0830 ACID REFLUX 11/27/20 [History Last Taken Unknown] lactose-reduced food with fiber 0.06 gram-1.2 kcal/mL oral liquid 1,000 ml G- tube DAILY NUTRITION 11/27/20 [History Last Taken Unknown] plecanatide 3 mg tablet 3 mg G-tube 0830 BOWELS 11/27/20 [History Last Taken Unknown] doxazosin 2 mg tablet 2 mg PO 0830 BLOOD PRESSURE 11/30/21 [History Last Taken Unknown] cholecalciferol (vitamin D3) 10 mcg/mL (400 unit/mL) oral drops 15 mcg feeding tube 0830 SUPPLEMENT 03/24/22 [History Last Taken Unknown] guaifenesin 200 mg/5 mL oral liquid 200 mg feeding tube 0830 PRN COUGH/CONGEST ION 03/24/22 [History Last Taken Unknown] acetaminophen 650 mg/20.3 mL oral suspension 650 mg feeding tube 0000,0600,1200,1800 PRN PAIN 10/24/22 [History Last Taken Unknown] aluminum-mag hydroxide-simethicone 200 mg-200 mg-20 mg/5 mL oral susp 5 ml PO 0000,0600,1200,1800 PRN ANTACID 10/24/22 [History Last Taken Unknown] cetirizine 1 mg/mL oral solution 10 mg feeding tube 1600 ALLERGIES 10/24/22 [H istory Last Taken Unknown] lorazepam 2 mg/mL injection solution (Ativan) 1 mg IM DAILY PRN AGITATION 10/24/22 [History Last Taken Unknown] Allergy/AdvReac Type Severity Reaction Status Date / Time chlorhexidine Allergy Rash Verified 12/10/22 09:40 cisapride monohydrate Allergy Rash Verified 12/10/22 09:40 [From Propulsid] house dust Allergy NEEDS Verified 12/10/22 09:40 FOLLOW-UP codeine AdvReac hallucinati Verified 12/10/22 09:40 ons metronidazole [From Flagyl] AdvReac Rash Verified 12/10/22 09:40 morphine AdvReac Hallucinati Verified 12/10/22 09:40 ons Family History Mother Hepatitis C Hypertension HIV disease Father H/O heart artery stent CAD (coronary artery disease) Atrial fibrillation Hypertension Esophageal cancer Surgical History Colostomy in place Heel cord lengthening History of colostomy History of eye surgery History of gastrostomy tube placement History of open reduction and internal fixation (ORIF) procedure History of soft tissue release Status post insertion of intrathecal baclofen pump Social History household members: family housing: house current occupational status: disabled Smoking Status: Never smoker alcohol intake: never substance use type: does not use caffeine: No ROS ROS ED Review of Systems ROS Unobtainable: due to mental condition Gastrointestinal Gastrointestinal: Reports vomiting EXAM Physical Exam Const Vital Signs: 12/10/22 09:37 Temperature 97.7 F L Temperature Source Temporal Pulse Rate 122 H Respiratory Rate 30 H Blood Pressure 100/83 H Blood Pressure Mean 88 Pulse Ox 95 Oxygen Delivery Method Mechanical Ventilator Constitutional Narrative: Nonverbal, on ventilation with tracheostomy, remnants of coffee-ground emesis noted. HEENT Reports moist mucous membranes normocephalic and atraumatic Eyes PERRL, EOMs intact bilaterally and conjunctivae normal General Eye ED: Yes normal appearance of both eyes Neck no lymphadenopathy Neck Narrative: Tracheostomy vent, no active secretions. General: Negative for tenderness Chest Wall Chest: Negative for tenderness Resp normal respiratory effort and normal air movement Effort and Inspection: symmetric chest movement; Negative for respiratory distress Cardio regular rhythm and no murmurs Rate: tachycardic Peripheral Pulses: pulses 2+ throughout GI normal to inspection, nondistended, normoactive bowel sounds GI Narrative: Minimal distention, previous right-sided scar, PEG tube clean, dry, intact. Colostomy left lower quadrant with herniation, no current stools in the bag. Palpation: Negative for guarding or rebound tenderness present Extremity Extremity Narrative: Contractures of the lower extremities with atrophy General Extremety ED: Negative for tenderness Neuro Neuro Narrative: Nonverbal Discharge Plan Triage Chief Complaint: GI Bleed ED Provider: Miky Rahman Dx/Rx/DC Orders Prescriptions: No Action albuterol sulfate 2.5 mg /3 mL (0.083 %) solution for nebulization 2.5 mg inhalation Q4H PRN (Reason: Sob &/Or Wheezing) esomeprazole magnesium [Nexium Packet] [address] for susp in packet 40 mg G-tube 0830 famotidine [Pepcid] 20 mg tablet 20 mg feeding tube 0830 metoclopramide HCl 5 mg/5 mL solution 10 mg feeding tube 0830,1600,2100 phenobarbital 20 MG/5 ML elixir 60 mg G-tube 0830,2100 Cough Assist 1 dose .Route .MEDSUPPLY Rx Instructions: Inspiratory and Expiratory times of 20-40 seconds with a 1-2 second pause. oxygen concentrator 1 dose .Route .MEDSUPPLY Rx Instructions: As directed baclofen 5 mg/5 mL solution 4 mg G-tube 0000,0600,1200,1800 lactose-reduced food with fibr 0.06 gram-1.2 kcal/mL liquid 1,000 ml G-tube DAILY Patient Comments: PER PT HOME MED LIST: JEVITY 1.2 BENNY/ML 4.5-5 CARTONS PER DAY. APPROXIMATELY 1 LITER PER DAY. 55ML/HOUR TO 65ML DURING THE DAY. SLOW THIS DOWN TO 45 ML/HOUR AT NIGHT. gabapentin 250 MG/5 ML solution 500 mg G-tube 0000,0600,1200,1800 Patient Comments: PER PT HOME MED LIST: GABAPENTIN DOSING -IF MO'S HEART RATE IS LOW I DON'T ALWAYS GIVE THE WHOLE 10ML GABAPENTIN DOSE MY GUIDES ARE: PULSE <50: I MIGHT WAIT 1 HOUR FOR HIM TO BE MORE AWAKE. GIVE 4 ML PULSE IN THE 50'S: GIVE 5ML OR 6 ML PULSE IN THE 60'S: GIVE 6ML TO 7ML PULSE 69>: GIVE THE WHOLE 10ML plecanatide 3 mg tablet 3 mg GT 0830 doxazosin 2 mg tablet 2 mg GT 0830 cholecalciferol (vitamin D3) 10 mcg/mL (400 unit/mL) drops 15 mcg feeding tube 0830 guaifenesin 200 mg/5 mL liquid 200 mg feeding tube 0830 PRN (Reason: COUGH/CONGESTION) alum-mag hydroxide-simeth 200-200-20 mg/5 mL suspension 5 ml PO 0000,0600,1200,1800 PRN (Reason: ANTACID) acetaminophen 650 mg/20.3 mL suspension 650 mg feeding tube 0000,0600,1200,1800 PRN (Reason: PAIN ) lorazepam [Ativan] 2 mg/mL solution 1 mg IM DAILY PRN (Reason: AGITATION ) cetirizine 1 mg/mL solution 10 mg feeding tube 1600 Primary Care Provider: Timmy Conn Referrals: Timmy Conn MD [Primary Care Provider] -
--- NOTE | 2022-12-10 10:11 | ED.VIS.GI ---
HPI HPI - GI History of Present Illness Chief Complaint: GI Bleed Informant: parent Narrative Narrative: Presents from EMS from home concerning coffee-ground emesis x4 since this morning. Parents are currently present. History of cerebral palsy, bedridden. Patient with PEG tube dependent on feedings since 1993. Patient had ostomy due to chronic constipation 2014. Previous baclofen pumps with poor healing therefore abdominal scars. Ended up with tracheostomy 2018. Patient vent dependent at night use a trach mask during the day. Mother reports was normal going to bed this morning with nursing aides noted emesis dark in color. Since then has 3 more episodes. Patient previous PE in 2019 not currently on anticoagulants. Multiple patient is on Nexium currently daily states decreased to this over the summer with PCP. Specialists are at [facility] with surgery. However mother states has seen surgery service here and has had an upper endoscopy here. Has been no fevers no cough. Patient on seizure medications, no seizure activity. Mother reports emptied the colostomy bag yesterday, nonbloody. Prior similar symptoms: Yes PFSH PFSH Medical History (Updated 12/10/22 @ 15:05 by Natalie Jiménez) Acute dyspnea Anemia in chronic illness Anxiety Cerebral palsy Chronic respiratory failure Chronic respiratory failure with hypoxia Colostomy prolapse Debility Edema GERD (gastroesophageal reflux disease) History of seizure disorder Iron deficiency anemia Non-smoker Nonrheumatic mitral valve prolapse Obesity On home oxygen therapy Pseudomonas pneumonia Pulmonary embolism Pulmonary embolism on left (06/14/19) Redundant colon Seizures Thrombocytopenia Tracheostomy in place Upper GI bleeding (04/2020) Home Medications phenobarbital 20 mg/5 mL (4 mg/mL) oral elixir 60 mg G-tube 0830,2100 SEIZURES 02/19/17 [History Last Taken 04/24/20 21:00] metoclopramide HCl 5 mg/5 mL oral solution 10 mg feeding tube 0830,1600,2100 STOMACH 09/16/18 [History Last Taken 04/24/20 21:00] Cough Assist 1 dose .Route .MEDSUPPLY assist in clearing secretions 12/25/18 [History Last Taken Unknown] oxygen concentrator 1 dose .Route .MEDSUPPLY second unit, 4 LPM cont all modalities 12/25/18 [History Last Taken Unknown] gabapentin 250 mg/5 mL oral solution 500 mg G-tube 0000,0600,1200,1800 SEIZURES 08/04/20 [History Last Taken 04/25/20 06:00] albuterol sulfate 2.5 mg/3 mL (0.083 %) solution for nebulization 2.5 mg inhalation Q4H PRN Sob &/Or Wheezing 11/27/20 [History Last Taken Unknown] esomeprazole magnesium 40 mg granules delayed release for susp (Nexium Packet) 40 mg G-tube 0830 ACID REFLUX 11/27/20 [History Last Taken Unknown] famotidine 20 mg tablet (Pepcid) 20 mg feeding tube 0830 ACID REFLUX 11/27/20 [History Last Taken Unknown] lactose-reduced food with fiber 0.06 gram-1.2 kcal/mL oral liquid 1,000 ml G-tube DAILY NUTRITION 11/27/20 [History Last Taken Unknown] plecanatide 3 mg tablet 3 mg G-tube 0830 BOWELS 11/27/20 [History Last Taken Unknown] doxazosin 2 mg tablet 2 mg PO 0830 BLOOD PRESSURE 11/30/21 [History Last Taken Unknown] cholecalciferol (vitamin D3) 10 mcg/mL (400 unit/mL) oral drops 15 mcg feeding tube 0830 SUPPLEMENT 03/24/22 [History Last Taken Unknown] guaifenesin 200 mg/5 mL oral liquid 200 mg feeding tube 0830 PRN COUGH/CONGESTION 03/24/22 [History Last Taken Unknown] acetaminophen 650 mg/20.3 mL oral suspension 650 mg feeding tube 0000,0600,1200,1800 PRN PAIN 10/24/22 [History Last Taken Unknown] aluminum-mag hydroxide-simethicone 200 mg-200 mg-20 mg/5 mL oral susp 5 ml PO 0000,0600,1200,1800 PRN ANTACID 10/24/22 [History Last Taken Unknown] cetirizine 1 mg/mL oral solution 10 mg feeding tube 1600 ALLERGIES 10/24/22 [History Last Taken Unknown] lorazepam 2 mg/mL injection solution (Ativan) 1 mg IM DAILY PRN AGITATION 10/24/22 [History Last Taken Unknown] baclofen 20 mg tablet 20 mg feeding tube .every 6 hours muscle spasms 12/10/22 [History Last Taken Unknown] Allergy/AdvReac Type Severity Reaction Status Date / Time chlorhexidine Allergy Rash Verified 12/10/22 09:40 cisapride monohydrate Allergy Rash Verified 12/10/22 09:40 [From Propulsid] house dust Allergy NEEDS Verified 12/10/22 09:40 FOLLOW-UP codeine AdvReac hallucinati Verified 12/10/22 09:40 ons metronidazole [From Flagyl] AdvReac Rash Verified 12/10/22 09:40 morphine AdvReac Hallucinati Verified 12/10/22 09:40 ons Family History Mother Hepatitis C Hypertension HIV disease Father H/O heart artery stent CAD (coronary artery disease) Atrial fibrillation Hypertension Esophageal cancer Surgical History Colostomy in place Heel cord lengthening History of colostomy History of eye surgery History of gastrostomy tube placement History of open reduction and internal fixation (ORIF) procedure History of soft tissue release Status post insertion of intrathecal baclofen pump Social History household members: family housing: house current occupational status: disabled Smoking Status: Never smoker alcohol intake: never substance use type: does not use caffeine: No ROS ROS ED Review of Systems ROS Unobtainable: due to mental condition Gastrointestinal Gastrointestinal: Reports vomiting EXAM Physical Exam Const Vital Signs: 12/10/22 09:37 Temperature 97.7 F L Temperature Source Temporal Pulse Rate 122 H Respiratory Rate 30 H Blood Pressure 100/83 H Blood Pressure Mean 88 Pulse Ox 95 Oxygen Delivery Method Mechanical Ventilator Constitutional Narrative: Nonverbal, on ventilation with tracheostomy, remnants of coffee-ground emesis noted. HEENT Reports moist mucous membranes normocephalic and atraumatic Eyes PERRL, EOMs intact bilaterally and conjunctivae normal General Eye ED: Yes normal appearance of both eyes Neck no lymphadenopathy Neck Narrative: Tracheostomy vent, no active secretions. General: Negative for tenderness Chest Wall Chest: Negative for tenderness Resp normal respiratory effort and normal air movement Effort and Inspection: symmetric chest movement; Negative for respiratory distress Cardio regular rhythm and no murmurs Rate: tachycardic Peripheral Pulses: pulses 2+ throughout GI normal to inspection, nondistended, normoactive bowel sounds GI Narrative: Minimal distention, previous right-sided scar, PEG tube clean, dry, intact. Colostomy left lower quadrant with herniation, no current stools in the bag. Palpation: Negative for guarding or rebound tenderness present Extremity Extremity Narrative: Contractures of the lower extremities with atrophy General Extremety ED: Negative for tenderness Neuro Neuro Narrative: Nonverbal MDM MDM MDM Narrative Medical decision making narrative: Interventions / MDM: Differential diagnosis: Hematemesis, peptic ulcer disease Diagnosis considered but do not suspect: Bowel obstruction however negative CT My EKG interpretation: N/A Imaging independently reviewed and interpreted by myself: CT abdomen pelvis IV contrast, chronic changes, no surgical abdomen, read by radiology. External documents reviewed: Previous inpatient visits with endoscopy 2020. Test considered but not ordered:N/A ED course: Patient presenting no hematemesis coffee-ground emesis remnants. PEG tube dependent. Mother concerned and wanted his morning dose of medications which included the Nexium mixed in, therefore this was allowed with medications, additional 40 mg IV Protonix was ordered. There is no blood from the ostomy bag. Work-up initiated with labs CT scan fluids started. He is maintained on the ventilator. 1016: Reviewing records note he had endoscopy 2 years ago by surgery here, noted [place] esophagitis along with nonbleeding gastric ulcers. I spoke with on-call surgeon Dr. Simon who knows the patient well. He recommended transfer with his complex history especially of any surgical issues. Results are pending. 1040: CT scan negative for any surgical process or lab abs hemoglobin 12.6. There is no further emesis in the ED on reevaluation. Parents states patient has been managed here before and would like to stay here due to better care. Therefore reach out to GI doctor, Dr. Gregory, discussed patient's history with PEG tube and tracheostomy dependent, he would like to keep the patient n.p.o. He will follow the patient in the hospital. No drip at this time we will continue PPI IV. I spoke with hospitalist Dr. Abebe discussed patient's history and findings. Patient be placed on the PCU for further management. Re-evaluation: stable Disposition discussed with patient/family/significant other: Parents Case discussed with consulting clinician: General surgery, gastroenterology, hospitalist This note was generated with [employer] dictation software. It may contain incorrect words, spelling, and punctuation that were not noted in checking the note before signing. Lab Data Labs: Laboratory Results - last 24 hr 12/10/22 10:44 WBC 11.6 H RBC 4.77 Hgb 12.6 L Hct 39.8 L MCV 83.4 MCH 26.4 L MCHC 31.7 L RDW Std Deviation 42.8 RDW Coeff of Emilee 14.0 Plt Count 228 MPV 10.0 Immature Gran % (Auto) 0.400 Neut % (Auto) 72.2 H Lymph % (Auto) 19.2 [place] % (Auto) 5.9 Eos % (Auto) 2.1 Baso % (Auto) 0.2 Absolute Neuts (auto) 8.4 H Absolute Lymphs (auto) 2.23 Nucleated RBC % 0 PT 13.4 INR 1.0 APTT 35.6 Sodium 140 Potassium 3.8 Chloride 105 Carbon Dioxide 29.0 Anion Gap 6 BUN 16 Creatinine 0.35 L Estim Creat Clear Calc 198.41 Est GFR (MDRD) Af Amer 352 Est GFR (MDRD) Non-Af 291 BUN/Creatinine Ratio 45.3 H Glucose 109 H Calcium 8.6 Total Bilirubin 0.20 AST 19 ALT 29 Alkaline Phosphatase 144 H Total Protein 8.7 H Albumin 3.3 Globulin 5.4 H Albumin/Globulin Ratio 0.6 L Lipase 58 Radiography Diagnostic Testing: Clinical Impression(s) from Imaging Studies Abdomen/Pelvis CT 12/10/22 09:59 IMPRESSION: 1. Status post left hemicolectomy with left lower quadrant colostomy. 2. Parastomal herniation of small bowel loops adjacent to colostomy site without evidence of small bowel obstruction. 3. Distention or thickening of the rectal pouch distal to the colostomy sutures unchanged. 4. Otherwise no focal acute inflammatory process. Electronically Signed: Edis Dhaliwal MD at 11:47 EDT , Chest X-Ray 12/10/22 11:22 IMPRESSION: No radiographic evidence of acute cardiopulmonary disease. Electronically Signed: Edis Dhaliwal MD at 11:35 EDT , Discharge Plan Dx/Rx/DC Orders Clinical Impression: GI bleed, Cerebral palsy, Hematemesis Disposition Disposition: Acute Care Hospital [facility] Discharge Date/Time: 12/10/22 14:37
[2022-12-10] MEDS: 0.9% Normal Saline (500mL Bag) 500 ML 1000 ML IV (10:50)
[2022-12-10] MEDS: Ondansetron 4 MG/2 ML Vial IV ×2 (10:50→20:42)
[2022-12-10 10:55] LABS: Absolute Lymphocyte Count 2.23 X10^3/uL (0.83-4.51); Absolute Neutrophil Count 8.4 X10^3/uL (2.0-7.7); Basophil# 0.02 X10^3/uL; Basophil% 0.2 % (0-1); Eosinophil# 0.24 X10^3/uL; Eosinophils% 2.1 % (0-5); Hematocrit 39.8 % (40-54); Hemoglobin 12.6 g/dL (13.0-16.5); Lymphocyte # 2.23 X10^3/ul (0.83-4.51); Lymphocyte % 19.2 % (19-41); Mean Corp Hgb Conc 31.7 g/dL (32-36); Mean Corpuscular Hgb 26.4 pg (27.0-32.0); Mean Corpuscular Volume 83.4 fL (80-94); Monocyte# 0.68 X10^3/uL; Monocyte% 5.9 % (0-10); NRBC Flagged by Analyzer 0 % (0-5); Neutrophil % 72.2 % (47-70); Platelet Count 228 K/mm3 (150-450); RBC Distribution Width SD 42.8 fl (35.1-43.9); Red Blood Count 4.77 M/mm3 (4.6-6.2); White Blood Count 11.6 K/mm3 (4.4-11.0)
[2022-12-10 11:01] LABS: Prothrombin Time (Protime)PT. 13.4 SECONDS (11.7-14.9)
[2022-12-10 11:03] LABS: Partial Thromboplast Time 35.6 Seconds (24.1-36.2)
[2022-12-10 11:22] LABS: ALB/GLOB Ratio 0.6 RATIO (0.9-2.4); AST(SGOT) 19 U/L (15-37); Alanine Aminotransfer ALT/SGPT 29 U/L (16-61); Albumin, Serum 3.3 g/dL (3.2-5.0); Alkaline Phosphatase 144 U/L (45-117); Anion Gap 6 (5-15); BUN 16 mg/dL (7-18); BUN/Creat Ratio 45.3 RATIO (10-20); Calcium,Total 8.6 mg/dL (8.5-10.1); Chloride 105 mmol/L (98-107); Creatinine, Serum 0.35 mg/dL (0.70-1.30); EST Glomerular Filtration Rate 291 mL/min (>60); Est Glom Filt Rate - Afr Amer 352 mL/min (>60); Estimated Creatinine Clearance 198.41 ml/min; Globulin 5.4 g/dL (2.2-4.2); Glucose 109 mg/dL (74-106); Lipase 58 U/L (13-75); Potassium 3.8 mmol/L (3.5-5.1); Protein, Total 8.7 g/dL (6.4-8.2); Sodium Level 140 mmol/L (136-145)
--- NOTE | 2022-12-10 11:22 | RAD_ITS ---
INDICATION: sob EXAMINATION/TECHNIQUE: X-RAY - XR Chest 1 View COMPARISON: Prior study dated: 06/22/2022. FINDINGS: LINES/DEVICES: Tracheostomy tube and right-sided Port-A-Cath in stable position. LUNGS: Hypoventilatory changes and mild elevation of the right hemidiaphragm. No focal infiltrate is seen. No evidence of pleural effusions. MEDIASTINUM AND CARDIOVASCULAR STRUCTURES: Borderline cardiac silhouette. BONES AND SOFT TISSUES: Unchanged. RAD/Chest 1 View (Portable) IMPRESSION: No radiographic evidence of acute cardiopulmonary disease. Electronically Signed: Edis Dhaliwal MD at 11:35 EDT ,
[2022-12-10] MEDS: Pantoprazole Sodium 40 MG in 0.9% Normal Saline (100mL MB+) 100 ML 330 MG IV (12:05)
--- NOTE | 2022-12-10 12:17 | HP.PCM.HOS_ITS ---
HPI - General General Date of Admission: 12/10/22 HPI Narrative KRISS MICHAEL, is a 42 M who presents [facility] Medical History (Updated 12/10/22 @ 15:05 by Natalie Jiménez) Acute dyspnea Anemia in chronic illness Anxiety Cerebral palsy Chronic respiratory failure Chronic respiratory failure with hypoxia Colostomy prolapse Debility Edema GERD (gastroesophageal reflux disease) History of seizure disorder Iron deficiency anemia Non-smoker Nonrheumatic mitral valve prolapse Obesity On home oxygen therapy Pseudomonas pneumonia Pulmonary embolism Pulmonary embolism on left (06/14/19) Redundant colon Seizures Thrombocytopenia Tracheostomy in place Upper GI bleeding (04/2020) Home Medications phenobarbital 20 mg/5 mL (4 mg/mL) oral elixir 60 mg G-tube 0830,2100 SEIZURES 02/19/17 [History Last Taken 04/24/20 21:00] metoclopramide HCl 5 mg/5 mL oral solution 10 mg feeding tube 0830,1600,2100 STOMACH 09/16/18 [History Last Taken 04/24/20 21:00] Cough Assist 1 dose .Route .MEDSUPPLY assist in clearing secretions 12/25/18 [History Last Taken Unknown] oxygen concentrator 1 dose .Route .MEDSUPPLY second unit, 4 LPM cont all modalities 12/25/18 [History Last Taken Unknown] gabapentin 250 mg/5 mL oral solution 500 mg G-tube 0000,0600,1200,1800 SEIZURES 09/26/19 [History Last Taken 04/25/20 06:00] albuterol sulfate 2.5 mg/3 mL (0.083 %) solution for nebulization 2.5 mg inhal ation Q4H PRN Sob &/Or Wheezing 11/27/20 [History Last Taken Unknown] esomeprazole magnesium 40 mg granules delayed release for susp (Nexium Packet) 40 mg G-tube 0830 ACID REFLUX 11/27/20 [History Last Taken Unknown] famotidine 20 mg tablet (Pepcid) 20 mg feeding tube 0830 ACID REFLUX 11/27/20 [History Last Taken Unknown] lactose-reduced food with fiber 0.06 gram-1.2 kcal/mL oral liquid 1,000 ml G- tube DAILY NUTRITION 11/27/20 [History Last Taken Unknown] plecanatide 3 mg tablet 3 mg G-tube 0830 BOWELS 11/27/20 [History Last Taken Unknown] doxazosin 2 mg tablet 2 mg PO 0830 BLOOD PRESSURE 11/30/21 [History Last Taken Unknown] cholecalciferol (vitamin D3) 10 mcg/mL (400 unit/mL) oral drops 15 mcg feeding tube 0830 SUPPLEMENT 03/24/22 [History Last Taken Unknown] guaifenesin 200 mg/5 mL oral liquid 200 mg feeding tube 0830 PRN COUGH/CONGESTION 03/24/22 [History Last Taken Unknown] acetaminophen 650 mg/20.3 mL oral suspension 650 mg feeding tube 0000,0600,1200,1800 PRN PAIN 10/24/22 [History Last Taken Unknown] aluminum-mag hydroxide-simethicone 200 mg-200 mg-20 mg/5 mL oral susp 5 ml PO 0000,0600,1200,1800 PRN ANTACID 10/24/22 [History Last Taken Unknown] cetirizine 1 mg/mL oral solution 10 mg feeding tube 1600 ALLERGIES 10/24/22 [History Last Taken Unknown] lorazepam 2 mg/mL injection solution (Ativan) 1 mg IM DAILY PRN AGITATION 10/24/22 [History Last Taken Unknown] baclofen 20 mg tablet 20 mg feeding tube .every 6 hours muscle spasms 12/10/22 [History Last Taken Unknown] Allergy/AdvReac Type Severity Reaction Status Date / Time chlorhexidine Allergy Rash Verified 12/10/22 09:40 cisapride monohydrate Allergy Rash Verified 12/10/22 09:40 [From Propulsid] house dust Allergy NEEDS Verified 12/10/22 09:40 FOLLOW-UP codeine AdvReac hallucinati Verified 12/10/22 09:40 ons metronidazole [From Flagyl] AdvReac Rash Verified 12/10/22 09:40 morphine AdvReac Hallucinati Verified 12/10/22 09:40 ons Family History Mother Hepatitis C Hypertension HIV disease Father H/O heart artery stent CAD (coronary artery disease) Atrial fibrillation Hypertension Esophageal cancer Surgical History Colostomy in place Heel cord lengthening History of colostomy History of eye surgery History of gastrostomy tube placement History of open reduction and internal fixation (ORIF) procedure History of soft tissue release Status post insertion of intrathecal baclofen pump Social History household members: family housing: house current occupational status: disabled Smoking Status: Never smoker alcohol intake: never substance use type: does not use caffeine: No Vital Signs Vital Signs Vital Signs: 12/10/22 09:37 Temperature 97.7 F L Temperature Source Temporal Pulse Rate 122 H Respiratory Rate 30 H Blood Pressure 100/83 H Blood Pressure Mean 88 Pulse Ox 95 Oxygen Delivery Method Mechanical Ventilator Weight Weight: 93 kg Body Mass Index (BMI) 40.0 Results Lab / Micro Data 12/10/22 10:44 12/10/22 10:44 Labs: Laboratory Results - last 24 hr 12/10/22 10:44: WBC 11.6 H, RBC 4.77, Hgb 12.6 L, Hct 39.8 L, MCV 83.4, MCH 26.4 L, MCHC 31.7 L, RDW Std Deviation 42.8, RDW Coeff of Emilee 14.0, Plt Count 228, MPV 10.0, Immature Gran % (Auto) 0.400, Neut % (Auto) 72.2 H, Lymph % (Auto) 19.2, [place] % (Auto) 5.9, Eos % (Auto) 2.1, Baso % (Auto) 0.2, Absolute Neuts (auto) 8.4 H, Absolute Lymphs (auto) 2.23, Nucleated RBC % 0, PT 13.4, INR 1.0, APTT 35.6, Sodium 140, Potassium 3.8, Chloride 105, Carbon Dioxide 29.0, Anion Gap 6, BUN 16, Creatinine 0.35 L, Estim Creat Clear Calc 198.41, Est GFR (MDRD) Af Amer 352, Est GFR (MDRD) Non-Af 291, BUN/Creatinine Ratio 45.3 H, Glucose 109 H, Calcium 8.6, Total Bilirubin 0.20, AST 19, ALT 29, Alkaline Phosphatase 144 H , Total Protein 8.7 H, Albumin 3.3, Globulin 5.4 H, Albumin/Globulin Ratio 0.6 L , Lipase 58 Radiology Impression Abdomen/Pelvis CT 12/10/22 09:59 IMPRESSION: 1. Status post left hemicolectomy with left lower quadrant colostomy. 2. Parastomal herniation of small bowel loops adjacent to colostomy site without evidence of small bowel obstruction. 3. Distention or thickening of the rectal pouch distal to the colostomy sutures unchanged. 4. Otherwise no focal acute inflammatory process. Electronically Signed: Edis Dhaliwal MD at 11:47 EDT , Chest X-Ray 12/10/22 11:22 IMPRESSION: No radiographic evidence of acute cardiopulmonary disease. Electronically Signed: Edis Dhaliwal MD at 11:35 EDT , Assessment & Plan Assessment/Plan (1) GI bleed: QUALIFIERS: GI bleed type/associated pathology: unspecified gastrointestinal hemorrhage type Qualified Code(s): K92.2 - Gastrointestinal hemorrhage, unspecified PLAN: Plan GI bleed?suspect upper with coffee-ground emesis, n.p.o., GI following, PPI drip, hemoglobin is stable, actually looks a little bit dry and could probably use some IV fluids, monitor, CBC daily PCU, inpatient Home meds?Tylenol, albuterol, baclofen, cetirizine, doxazosin, esomeprazole daily, Pepcid daily, gabapentin 500 4 times daily, guaifenesin, Ativan as needed, metoclopramide, phenobarbital, plecanatide Patient is a 42-year-old male with 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 1. Suspected upper GI bleed; chronic anemia, stable Known history of GI bleeding secondary to gastric ulcers. Had EGD done with Dr. Wilson for this about 2 to 3 years ago. Had been on PPI twice daily since then, was de-escalated to PPI daily sometime this summer per patient's family. Mother notably reports emptying colostomy bag yesterday, nonbloody and not consistent with melena. Hemoglobin 12.4 on admit, baseline hemoglobin around 10-11. BUN 16, creatinine 0.35, BUN to creatinine ratio 45. CT abdomen pelvis with IV contrast on 12/10/2022 showed known chronic changes, no focal acute inflammatory process. ? Admit under inpatient status to PCU. Gastroenterology consulted. Patient n.p.o. status, no feedings through PEG tube for now. IV PPI drip started in ED, continue for now. Monitor CBC tonight and tomorrow morning. Mild tachycardia and appears somewhat dry on admit, will continue maintenance fluids for now. Chronic medical conditions: ? Spastic cerebral palsy: Lives with his parents who take excellent care of him at home. Continue home baclofen, gabapentin, Ativan as needed. ? Chronic hypoxic respiratory failure s/p tracheostomy with ventilator dependence: Stable, at his baseline. Continue normal ventilator management. ? Seizure disorder: Continue home phenobarbital. DVT prophylaxis: SCDs CODE STATUS: Full code, verified Expected disposition: Home, TBD Total clinical time spent by myself addressing the patient's medical issues, reviewing all the data, and collaborating with patient's care team: 55 minutes. Charges/Coding Visit Charges Inpatient E&M: 62342 Init Hosp L2
[2022-12-10] MEDS: 0.9% Normal Saline (1000mL) 1,000 ML 100 ML IV ×2 (13:00→23:00)
[2022-12-10] MEDS: Acetaminophen 160 MG/5 ML UDC 650 MG PO (13:06)
[2022-12-10] MEDS: Baclofen 10 MG Tablet 20 MG GT (13:06)
[2022-12-10] MEDS: Contrast Allergy Safety Check IV (18:26)
[2022-12-10 19:22] LABS: Hemoglobin 11.1 g/dL (13.0-16.5); Mean Corp Hgb Conc 30.8 g/dL (32-36); Mean Corpuscular Hgb 26.2 pg (27.0-32.0); Mean Corpuscular Volume 85.1 fL (80-94); Mean Platelet Vol. 10.2 fl (6.2-12.0); Platelet Count 196 K/mm3 (150-450); RBC Distribution Width CV 14.2 % (11.6-14.6); RBC Distribution Width SD 43.7 fl (35.1-43.9); Red Blood Count 4.23 M/mm3 (4.6-6.2); White Blood Count 7.9 K/mm3 (4.4-11.0)
[2022-12-10] MEDS: Metoclopramide 10 MG/10 ML UDC GT (20:34)
[2022-12-10] MEDS: Baclofen 10 MG Tablet 20 MG PO (20:34)
[2022-12-10] MEDS: Phenobarbital 20 MG/5 ML UDC 60 MG GT (20:35)
[2022-12-10] MEDS: GABAPENTIN 250 MG/5 ML SOLUTION 500 MG GT (20:35)
[2022-12-11] VITALS (13 sets, daily range): BP systolic 92–147; BP diastolic 40–89; PULSE 77–119; RESP 16–22; TEMP 36.6–38; O2SAT 93–100
[2022-12-11] MEDS: Baclofen 10 MG Tablet 20 MG PO ×3 (04:53→23:45)
[2022-12-11] MEDS: Ondansetron 4 MG/2 ML Vial IV ×2 (04:54→18:04)
[2022-12-11 05:03] LABS: Hematocrit 33.5 % (40-54); Hemoglobin 10.3 g/dL (13.0-16.5); Mean Corp Hgb Conc 30.7 g/dL (32-36); Mean Corpuscular Hgb 26.4 pg (27.0-32.0); Mean Corpuscular Volume 85.9 fL (80-94); Mean Platelet Vol. 9.9 fl (6.2-12.0); Platelet Count 183 K/mm3 (150-450); RBC Distribution Width CV 14.4 % (11.6-14.6); RBC Distribution Width SD 44.6 fl (35.1-43.9); White Blood Count 7.6 K/mm3 (4.4-11.0)
[2022-12-11 05:19] LABS: Anion Gap 4 (5-15); BUN 18 mg/dL (7-18); BUN/Creat Ratio 69.8 RATIO (10-20); Calcium,Total 7.8 mg/dL (8.5-10.1); Chloride 111 mmol/L (98-107); Creatinine, Serum 0.26 mg/dL (0.70-1.30); EST Glomerular Filtration Rate 418 mL/min (>60); Est Glom Filt Rate - Afr Amer 506 mL/min (>60); Estimated Creatinine Clearance 267.09 ml/min; Glucose 101 mg/dL (74-106); Potassium 2.8 mmol/L (3.5-5.1); Sodium Level 144 mmol/L (136-145)
[2022-12-11] MEDS: Potassium Chloride 10mEq/100mL 10 MEQ/100 ML IV.SOLN. 100 MEQ IV BOLUS ×4 (09:09→17:13)
[2022-12-11] MEDS: 0.9% Normal Saline (1000mL) 1,000 ML 100 ML IV ×2 (09:09→22:21)
--- NOTE | 2022-12-11 12:24 | OP.EGD_ITS ---
Patient Name: Dale Diaz Procedure Date: 12/11/2022 11:20 AM Date of : 1980 Age: 42 Procedure: Upper GI endoscopy Indications: Hematemesis Providers: Stefan Gregory DO Medicines: Monitored Anesthesia Care Patient Profile: This is a 42 year old male. Refer to note in patient chart for documentation of history and physical. Patient has symptoms of acute vomiting. Complications: No immediate complications. Procedure: Pre-Anesthesia Assessment: - Prior to the procedure, a History and Physical was performed, and patient medications and allergies were reviewed. The patient is competent. The risks and benefits of the procedure and the sedation options and risks were discussed with the patient. All questions were answered and informed consent was obtained. Patient identification and proposed procedure were verified by the physician in the pre-procedure area. Mental Status Examination: alert and oriented. Airway Examination: normal oropharyngeal airway and neck mobility. Respiratory Examination: clear to auscultation. CV Examination: normal. Prophylactic Antibiotics: The patient does not require prophylactic antibiotics. Prior Anticoagulants: The patient has taken no previous anticoagulant or antiplatelet agents. ASA Grade Assessment: II - A patient with mild systemic disease. After reviewing the risks and benefits, the patient was deemed in satisfactory condition to undergo the procedure. The anesthesia plan was to use monitored anesthesia care (MAC). Immediately prior to administration of medications, the patient was re-assessed for adequacy to receive sedatives. The heart rate, respiratory rate, oxygen saturations, blood pressure, adequacy of pulmonary ventilation, and response to care were monitored throughout the procedure. The physical status of the patient was re-assessed after the procedure. After obtaining informed consent, the endoscope was passed under direct vision. Throughout the procedure, the patient's blood pressure, pulse, and oxygen saturations were monitored continuously. The gastroscope was introduced through the mouth, and advanced to the second part of duodenum. The upper GI endoscopy was accomplished without difficulty. The patient tolerated the procedure well. Scope In: 12:01:20 PM Scope Out: 12:14:07 PM Total Procedure Duration Time 0 hours 12 minutes 47 seconds Findings: Red blood was found in the entire esophagus. Red blood was found in the gastric body. Multiple 5 mm angiodysplastic lesions with bleeding were found on the greater curvature of the stomach. Coagulation for hemostasis using heater probe was successful. Area was successfully injected with 10 mL of a 0.1 mg/mL solution of epinephrine for drug delivery. Coagulation for hemostasis using argon plasma at 0.3 liters/minute and 30 camara was successful. Estimated blood loss was minimal. Few non-bleeding superficial duodenal ulcers with no stigmata of bleeding were found in the duodenal bulb. The largest lesion was 3 mm in largest dimension. Impression: - Red blood in the esophagus. - Red blood in the gastric body. 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 Treated with a heater probe. Injected. Treated with argon plasma coagulation (APC). - Multiple non-bleeding duodenal ulcers with no stigmata of bleeding. - No specimens collected. Recommendation: - Return patient to hospital fu for ongoing care. - Resume previous diet. - Administer an IV bolus of 50 micrograms of octreotide followed by an infusion of 50 micrograms per hour. - Continue present medications. Procedure Code(s): --- Professional --- 58694, Esophagogastroduodenoscopy, flexible, transoral; with control of bleeding, any method 99285, 59, Esophagogastroduodenoscopy, flexible, transoral; with directed submucosal injection(s), any substance CPT copyright 2021 [employer]. All rights reserved. The codes documented in this report are preliminary and upon stations superintendent review may be revised to meet current compliance requirements. Stefan Gregory DO 12/11/2022 12:23:53 PM This report has been signed electronically. Number of Addenda: 0 Note Initiated On: 12/11/2022 11:20 AM
--- NOTE | 2022-12-11 12:24 | OP.CCLET_ITS ---
12/11/2022 Timmy Conn [address] [place] [address] Re : Upper GI endoscopy procedure for Dale Diaz Dear Dr. Conn This procedure was performed on Sunday, December 11, 2022. My impressions and recommendations are as follows: Impressions : - Red blood in the esophagus. - Red blood in the gastric body. 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 Treated with a heater probe. Injected. Treated with argon plasma coagulation (APC). - Multiple non-bleeding duodenal ulcers with no stigmata of bleeding. - No specimens collected. Recommendations : - Return patient to hospital uf for ongoing care. - Resume previous diet. - Administer an IV bolus of 50 micrograms of octreotide followed by an infusion of 50 micrograms per hour. - Continue present medications. My findings are described in the full procedure note, which is enclosed. If I can be of further assistance, please feel free to contact me at . Sincerely, Stefan Gregory, 12/11/2022 12:23:53 PM This report has been signed electronically.
[2022-12-11] MEDS: Doxazosin 1 MG Tablet 2 MG GT (14:30)
--- NOTE | 2022-12-11 14:30 | CASEMGMT ---
RN CM Face to Face with patient for initial transition planning/care coordination assessment. RN CM introduced self and role at [facility]. Patient lying in bed, resting, mother at bedside. Patient willing to participate in assessment and is able to answer all questions appropriately. Care providers, pharmacy, and demographics verified. Patient wishes to discharge home with resumption of HHC with [facility]. . Patient states he has no further needs or concerns at this time. CM to follow for discharge planning needs that may arise. PCP: Senia Specialists: dilcia Monsalve; Gustavo, pain; Mariann, intervention manager; Beatriz ENT Preferred Pharmacy: [facility] [email or web address], [employer] Insurance: [employer] Prescription Benefit: yes Living Will/HPOA: yes, mother and father LNOK: parents Living Arrangements: Patient lives with parents in a single story home with ramp to enter the home. Parents provided care with independent aides. Transportation: mother DME/HHC: Patient has shower chair, hospital bed, estefany, nebuilzer, pulse ox, portable vent, oxygen through [facility]. Patient is active with [facility] for retirement. Disposition Plan: Patient to discharge home with [facility], family support and follow-up plans in place. Veronica BAL, RN, CM
[2022-12-11] MEDS: PLECANATIDE 3 MG TABLET PO (14:31)
[2022-12-11] MEDS: Phenobarbital 20 MG/5 ML UDC 60 MG GT ×2 (14:35→23:44)
[2022-12-11] MEDS: GABAPENTIN 250 MG/5 ML SOLUTION 500 MG GT ×3 (14:36→23:44)
--- NOTE | 2022-12-11 15:34 | CASEMGMT ---
Discharge Planning Resumption HH order sent to [facility] via [facility]. Jen Ibrahim, Discharge Planning Asst.
[2022-12-11] MEDS: Octreotide 0.1 MG/ML ML SC (15:56)
[2022-12-11] MEDS: Metoclopramide 10 MG/10 ML UDC GT ×2 (16:02→23:44)
--- NOTE | 2022-12-11 17:23 | PN.HOSP_ITS ---
Reason for Visit Reason for Visit: Diagnoses Gastrointestinal hemorrhage, unspecified (12/10/22) Subjective Subjective Patient seen at bedside afternoon, mom and dad present. Patient tolerated EGD well earlier today per Friend and his parents. Was resting comfortably in bed on my interview. No acute concerns currently. Objective Data Objective Data Vital Signs: Vital Signs Temp Pulse Resp BP Pulse Ox O2 Del Method O2 Flow Rate 99.6 F H 110 H 22 H 123/89 H 96 Mechanical Ventilator 8 12/11/22 15:38 12/11/22 15:38 12/11/22 15:38 12/11/22 15:38 12/11/22 15:38 12/11/22 15:38 12/11/22 12:44 FiO2 30 12/11/22 14:00 Oxygen Flow Rate (L/min) 8 Oxygen Delivery Method Mechanical Ventilator Weight: 77.5 kg Body Mass Index (BMI) 33.3 Intake & Output: Intake and Output for Last 24 Hours 12/09/22 12/10/22 12/11/22 23:59 23:59 23:59 Intake Total 1610 / 1610 1413.33 / 1413.33 Output Total 300 / 300 Balance 1310 / 1310 1413.33 / 1413.33 Lab / Micro Data 12/11/22 04:50 12/11/22 04:50 Labs: Laboratory Results - last 24 hr 12/10/22 15:04: WBC 7.9, RBC 4.23 L, Hgb 11.1 L, Hct 36.0 L, MCV 85.1, MCH 26.2 L, MCHC 30.8 L, RDW Std Deviation 43.7, RDW Coeff of Emilee 14.2, Plt Count 196, MPV 10.2 12/11/22 04:50: WBC 7.6, RBC 3.90 L, Hgb 10.3 L, Hct 33.5 L, MCV 85.9, MCH 26.4 L, MCHC 30.7 L, RDW Std Deviation 44.6 H, RDW Coeff of Emilee 14.4, Plt Count 183, MPV 9.9, Sodium 144, Potassium 2.8 L, Chloride 111 H, Carbon Dioxide 29.0, Anion Gap 4 L, BUN 18, Creatinine 0.26 L, Estim Creat Clear Calc 267.09, Est GFR (MDRD) Af Amer 506, Est GFR (MDRD) Non-Af 418, BUN/Creatinine Ratio 69.8 H, Glucose 101, Calcium 7.8 L Physical Exam Const alert Constitutional Narrative: Alert, obese, nonverbal, lying comfortably in bed, no acute distress. HEENT normocephalic, head/scalp atraumatic, hearing grossly normal bilaterally, nasal mucous membranes and turbinates normal and moist oral mucous membranes Eyes PERRL, EOMs intact bilaterally and conjunctivae normal Neck full ROM, no lymphadenopathy and supple Lymph Lymphatic: no lymphadenopathy noted Chest inspection of chest normal Resp Resp Narrative: Trach mask in place, patient saturating well on supplemental O2, no increased work of breathing noted. Cardio regular rate, regular rhythm, no murmurs and peripheral pulses 2+ throughout GI GI Narrative: Colostomy in place without issue, G-tube in place without issue. Patient's abdomen soft, nontender, nondistended. 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 1. Upper GI bleed; chronic anemia, stable Known history of GI bleeding secondary to gastric ulcers. Had EGD done with Dr. Wilson for this about 2 to 3 years ago. Had been on PPI twice daily since then, was de-escalated to PPI daily sometime this summer per patient's family. Mother notably reports emptying colostomy bag yesterday, nonbloody and not consistent with melena. Hemoglobin 12.4 on admit, baseline hemoglobin around 10-11. BUN 16, creatinine 0.35, BUN to creatinine ratio 45. CT abdomen pelvis with IV contrast on 12/10/2022 showed known chronic changes, no focal acute inflammatory process. ? GI following. S/p EGD on 12/11 ? found to have multiple bleeding a ngiodysplastic lesions in the stomach, treated with heater probe and APC, as well as multiple nonbleeding duodenal ulcers with no stigmata of bleeding. IV bolus of 50 mcg of octreotide administered, followed by octreotide infusion. Started on PPI twice daily through G-tube. Monitor CBC tomorrow morning. Holding tube feeds for now. If patient remains stable overnight, likely okay for discharge home tomorrow. Chronic medical conditions: ? Spastic cerebral palsy: Lives with his parents who take excellent care of him at home. Continue home baclofen, gabapentin, Ativan as needed. ? Chronic hypoxic respiratory failure s/p tracheostomy with ventilator dependence: Stable, at his baseline. Continue normal ventilator management. ? Seizure disorder: Continue home phenobarbital. DVT prophylaxis: SCDs CODE STATUS: Full code, verified Expected disposition: Home, tomorrow Total clinical time spent by myself addressing the patient's medical issues, reviewing all the data, and collaborating with patient's care team: 35 minutes. Charges/Coding Visit Charges Inpatient E&M: 92346 Subs Hosp L2
[2022-12-11] MEDS: Miconazole Nitrate 43 GM Bottle 1 APPLIC TOPICAL (23:45)
[2022-12-12] VITALS (10 sets, daily range): BP systolic 109–158; BP diastolic 77–99; PULSE 67–125; RESP 14–26; TEMP 36.2–37.7; O2SAT 95–99
[2022-12-12] MEDS: Octreotide 0.1 MG/ML ML SC ×3 (00:34→21:43)
[2022-12-12] MEDS: Ondansetron 4 MG/2 ML Vial IV ×2 (02:10→11:09)
--- NOTE | 2022-12-12 04:23 | CPS ---
Around 201912/11/22, RT was helping Mom of pt to clean underneath trach ties. New ones were provided as well as new in-line suction and appropriate adapters as well. Mom and RT noticed foul smell coming from neck and trach tie area. pt skin is infected with yeast. RN was notified. Meds were obtained to treat yeast infection in neck line area. Pt has been vomiting last few days at night time, has saliva coming from mouth which also gets in neck line area , so it stays warm and moist in trach tie area. Area was cleaned, gauze pads were placed to keep neck line more dry. Inner cannula was changed at this time also.
[2022-12-12] MEDS: Miconazole Nitrate 43 GM Bottle 1 APPLIC TOPICAL ×3 (06:38→21:43)
[2022-12-12] MEDS: Baclofen 10 MG Tablet 20 MG PO ×3 (06:45→21:43)
[2022-12-12] MEDS: 0.9% Normal Saline (1000mL) 1,000 ML 100 ML IV ×2 (06:53→20:43)
[2022-12-12 07:03] LABS: Hematocrit 33.2 % (40-54); Mean Corp Hgb Conc 30.1 g/dL (32-36); Mean Corpuscular Hgb 26.5 pg (27.0-32.0); Mean Corpuscular Volume 87.8 fL (80-94); Mean Platelet Vol. 10.4 fl (6.2-12.0); Platelet Count 187 K/mm3 (150-450); RBC Distribution Width CV 14.6 % (11.6-14.6); RBC Distribution Width SD 46.7 fl (35.1-43.9); Red Blood Count 3.78 M/mm3 (4.6-6.2); White Blood Count 10.1 K/mm3 (4.4-11.0)
[2022-12-12 07:16] LABS: Anion Gap 7 (5-15); BUN 19 mg/dL (7-18); BUN/Creat Ratio 63.1 RATIO (10-20); Calcium,Total 7.8 mg/dL (8.5-10.1); Chloride 117 mmol/L (98-107); EST Glomerular Filtration Rate 350 mL/min (>60); Est Glom Filt Rate - Afr Amer 424 mL/min (>60); Estimated Creatinine Clearance 231.48 ml/min; Glucose 129 mg/dL (74-106); Potassium 3.3 mmol/L (3.5-5.1); Sodium Level 151 mmol/L (136-145)
[2022-12-12] MEDS: Acetaminophen 650 MG/20 ML UDC GT ×2 (08:31→15:56)
[2022-12-12] MEDS: Metoclopramide 10 MG/10 ML UDC GT ×3 (08:32→21:43)
[2022-12-12] MEDS: Phenobarbital 20 MG/5 ML UDC 60 MG GT ×2 (08:32→21:43)
[2022-12-12] MEDS: Doxazosin 1 MG Tablet 2 MG GT (08:32)
[2022-12-12] MEDS: PLECANATIDE 3 MG TABLET PO (08:33)
[2022-12-12] MEDS: GABAPENTIN 250 MG/5 ML SOLUTION 500 MG GT ×4 (08:36→21:42)
[2022-12-12] MEDS: Dextrose 5%-Water (1000mL Bag) 1,000 ML 200 ML IV ×2 (08:43→16:08)
[2022-12-12] MEDS: Potassium Chloride 10mEq/100mL 10 MEQ/100 ML IV.SOLN. 100 MEQ IV BOLUS ×4 (11:11→15:27)
[2022-12-12] MEDS: proCHLORPERazine 10 MG/2 ML Vial 5 MG IV (13:59)
--- NOTE | 2022-12-12 14:23 | PCM.PN.HOSP ---
Reason for Visit Reason for Visit: Diagnoses Gastrointestinal hemorrhage, unspecified (12/10/22) Subjective Subjective Patient seen at bedside this morning, mom present. Patient's mom states that he has had multiple episodes of small vomitus overnight and this morning. Some of the vomitus has appeared to be blood-tinged. Has been getting Zofran about every 8 hours, but does not seem to be providing much relief. Per mom, patient appears mildly uncomfortable but has been doing okay. No other acute concerns this morning. Objective Data Objective Data Vital Signs: Vital Signs Temp Pulse Resp BP Pulse Ox O2 Del Method O2 Flow Rate 98.9 F 89 16 109/77 97 Mechanical Ventilator 3.5 12/12/22 12:28 12/12/22 12:28 12/12/22 12:28 12/12/22 12:28 12/12/22 12:28 12/12/22 12:28 12/12/22 11:15 FiO2 30 12/12/22 12:28 Oxygen Flow Rate (L/min) 3.5 Oxygen Delivery Method Mechanical Ventilator Weight: 77.5 kg Body Mass Index (BMI) 33.3 Intake & Output: Intake and Output for Last 24 Hours 12/10/22 12/11/22 12/12/22 23:59 23:59 23:59 Intake Total 1610 / 1610 1828.33 / 1913.33 2214.99 / 2214.99 Output Total 300 / 300 32 / 32 Balance 1310 / 1310 1827.33 / 1882.33 2182.99 / 2182.99 Lab / Micro Data 12/12/22 06:50 12/12/22 06:50 Labs: Laboratory Results - last 24 hr 12/12/22 06:50: WBC 10.1, RBC 3.78 L, Hgb 10.0 L, Hct 33.2 L, MCV 87.8, MCH 26.5 L, MCHC 30.1 L, RDW Std Deviation 46.7 H, RDW Coeff of Emilee 14.6, Plt Count 187, MPV 10.4, Sodium 151 H, Potassium 3.3 L, Chloride 117 H, Carbon Dioxide 27.0, Anion Gap 7, BUN 19 H, Creatinine 0.30 L, Estim Creat Clear Calc 231.48, Est GFR (MDRD) Af Amer 424, Est GFR (MDRD) Non-Af 350, BUN/Creatinine Ratio 63.1 H, Glucose 129 H, Calcium 7.8 L Physical Exam Const alert Constitutional Narrative: Alert, obese, nonverbal, lying comfortably in bed, no acute distress. HEENT normocephalic, head/scalp atraumatic, hearing grossly normal bilaterally, nasal mucous membranes and turbinates normal and moist oral mucous membranes Eyes PERRL, EOMs intact bilaterally and conjunctivae normal Neck full ROM, no lymphadenopathy and supple Lymph Lymphatic: no lymphadenopathy noted Chest inspection of chest normal Resp Resp Narrative: Trach mask in place, patient saturating well on supplemental O2, no increased work of breathing noted. Cardio regular rate, regular rhythm, no murmurs and peripheral pulses 2+ throughout GI GI Narrative: Colostomy in place without issue, G-tube in place without issue. Patient's abdomen soft, nontender, nondistended. 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 1. Upper GI bleed; chronic anemia, stable Known history of GI bleeding secondary to gastric ulcers. Had EGD done with Dr. Wilson for this about 2 to 3 years ago. Had been on PPI twice daily since then, was de-escalated to PPI daily sometime this summer per patient's family. Mother notably reports emptying colostomy bag yesterday, nonbloody and not consistent with melena. Hemoglobin 12.4 on admit, baseline hemoglobin around 10-11. BUN 16, creatinine 0.35, BUN to creatinine ratio 45. CT abdomen pelvis with IV contrast on 12/10/2022 showed known chronic changes, no focal acute inflammatory process. ? GI following. S/p EGD on 12/11 ? 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 IV bolus of 50 mcg of octreotide administered, followed by octreotide subcu 3 times daily. Patient unfortunately has had multiple episodes of small volume vomitus that appears blood-tinged. We will give 2 doses of IV PPI tonight tomorrow morning and continue octreotide subcu. Monitor CBC tomorrow morning. Zofran and Compazine as needed for nausea/vomiting. Continue to hold tube feeds. If improved tomorrow, okay for discharge home. Chronic medical conditions: ? Spastic cerebral palsy: Lives with his parents who take excellent care of him at home. Continue home baclofen, gabapentin, Ativan as needed. ? Chronic hypoxic respiratory failure s/p tracheostomy with ventilator dependence: Stable, at his baseline. Continue normal ventilator management. ? Seizure disorder: Continue home phenobarbital. DVT prophylaxis: SCDs CODE STATUS: Full code, verified Expected disposition: Home, tomorrow Total clinical time spent by myself addressing the patient's medical issues, reviewing all the data, and collaborating with patient's care team: 35 minutes. Charges/Coding Visit Charges Inpatient E&M: 98695 Subs Hosp L2
[2022-12-12] MEDS: CETIRIZINE HCL 10 MG TABLET PO (15:56)
[2022-12-12] MEDS: Pantoprazole Sodium 40 MG in 0.9% Normal Saline (100mL MB+) 100 ML 330 MG IV ×2 (17:01→21:43)
--- NOTE | 2022-12-12 17:02 | EX.PCM.PN.GI ---
Subjective Subjective Patient underwent an upper endoscopy yesterday due to upper GI bleed. He was discovered to have bleeding in the gastric cardia of his stomach that was treated endoscopically. There is no bleeding overnight. Objective Data Objective Data Vital Signs: Vital Signs Temp Pulse Resp BP Pulse Ox O2 Del Method O2 Flow Rate 97.2 F L 95 14 144/99 H 97 Mechanical Ventilator 3.5 12/12/22 15:21 12/12/22 15:21 12/12/22 15:21 12/12/22 15:21 12/12/22 15:21 12/12/22 15:21 12/12/22 11:15 FiO2 30 12/12/22 14:00 Oxygen Flow Rate (L/min) 3.5 Oxygen Delivery Method Mechanical Ventilator Weight: 170 lb 13.732 oz Body Mass Index (BMI) 33.3 Intake & Output: Intake and Output for Last 24 Hours 12/10/22 12/11/22 12/12/22 23:59 23:59 23:59 Intake Total 1610 / 1610 1828.33 / 1913.33 2618.33 / 2618.33 Output Total 300 / 300 132 / 132 Balance 1310 / 1310 1827.33 / 1882.33 2486.33 / 2486.33 Lab / Micro Data 12/12/22 06:50 12/12/22 06:50 Labs: Laboratory Results - last 24 hr 12/12/22 06:50: WBC 10.1, RBC 3.78 L, Hgb 10.0 L, Hct 33.2 L, MCV 87.8, MCH 26.5 L, MCHC 30.1 L, RDW Std Deviation 46.7 H, RDW Coeff of Emilee 14.6, Plt Count 187, MPV 10.4, Sodium 151 H, Potassium 3.3 L, Chloride 117 H, Carbon Dioxide 27.0, Anion Gap 7, BUN 19 H, Creatinine 0.30 L, Estim Creat Clear Calc 231.48, Est GFR (MDRD) Af Amer 424, Est GFR (MDRD) Non-Af 350, BUN/Creatinine Ratio 63.1 H, Glucose 129 H, Calcium 7.8 L Physical Exam Const alert Constitutional Narrative: no acute distress. HEENT normocephalic, head/scalp atraumatic, hearing grossly normal bilaterally, nasal mucous membranes and turbinates normal and moist oral mucous membranes Eyes PERRL, EOMs intact bilaterally and conjunctivae normal Neck full ROM, no lymphadenopathy and supple Lymph Lymphatic: no lymphadenopathy noted Chest inspection of chest normal Resp Resp Narrative: Trach mask in place, patient saturating well on supplemental O2, no increased work of breathing noted. Cardio regular rate, regular rhythm, no murmurs and peripheral pulses 2+ throughout GI GI Narrative: Colostomy in place without issue, G-tube in place without issue. Patient's abdomen soft, nontender, nondistended. Back/Spine normal ROM Extremity normal to inspection, full ROM and no pedal edema Skin no rashes or lesions noted Assessment & Plan Assessment/Plan (1) GI bleed: QUALIFIERS: GI bleed type/associated pathology: unspecified gastrointestinal hemorrhage type Qualified Code(s): K92.2 - Gastrointestinal hemorrhage, unspecified PLAN: Plan 42-year-old with history of severe cerebral palsy with severe spasticity, urinary catheter dependent and PEG dependent along with a end colostomy ,on constant baclofen therapy who presents with upper GI bleed. Hematemesis-patient is doing well from a GI bleed standpoint. Recommended continue PPI therapy. He also will need sulcal fate therapy likely crushed and placed into the stomach 3 times a day for the next 4 to 6 weeks. He is on octreotide at this time and that will need to be continued while he is in the hospital. His tube feeds can be resumed that his hemoglobin seems stable. Charges/Coding Visit Charges Inpatient E&M: 66483 Subs Hosp L3
[2022-12-13 03:51] VITALS: BP 167/110; PULSE 92; RESP 15; TEMP 36.6; O2SAT 98
[2022-12-13] MEDS: Miconazole Nitrate 43 GM Bottle 1 APPLIC TOPICAL ×2 (05:36→13:39)
[2022-12-13] MEDS: Baclofen 10 MG Tablet 20 MG PO ×2 (05:37→13:38)
[2022-12-13] MEDS: Octreotide 0.1 MG/ML ML SC ×2 (05:44→13:49)
[2022-12-13] MEDS: 0.9% Normal Saline (1000mL) 1,000 ML 100 ML IV (05:56)
[2022-12-13] MEDS: Metoclopramide 10 MG/10 ML UDC GT (07:50)
[2022-12-13] MEDS: PLECANATIDE 3 MG TABLET PO (07:50)
[2022-12-13] MEDS: Doxazosin 1 MG Tablet 2 MG GT (07:50)
[2022-12-13 07:54] LABS: Hematocrit 32.7 % (40-54); Hemoglobin 9.9 g/dL (13.0-16.5); Mean Corp Hgb Conc 30.3 g/dL (32-36); Mean Corpuscular Hgb 26.5 pg (27.0-32.0); Mean Corpuscular Volume 87.4 fL (80-94); Mean Platelet Vol. 9.9 fl (6.2-12.0); Platelet Count 166 K/mm3 (150-450); RBC Distribution Width CV 14.4 % (11.6-14.6); Red Blood Count 3.74 M/mm3 (4.6-6.2); White Blood Count 7.6 K/mm3 (4.4-11.0)
[2022-12-13] MEDS: GABAPENTIN 250 MG/5 ML SOLUTION 500 MG GT ×2 (07:54→13:39)
[2022-12-13] MEDS: Phenobarbital 20 MG/5 ML UDC 60 MG GT (07:55)
[2022-12-13 07:56] VITALS: BP 150/98; PULSE 89; RESP 18; TEMP 37; O2SAT 98
[2022-12-13 08:11] LABS: Anion Gap 5 (5-15); BUN 12 mg/dL (7-18); BUN/Creat Ratio 47.2 RATIO (10-20); Calcium,Total 7.4 mg/dL (8.5-10.1); Chloride 109 mmol/L (98-107); Creatinine, Serum 0.25 mg/dL (0.70-1.30); EST Glomerular Filtration Rate 426 mL/min (>60); Est Glom Filt Rate - Afr Amer 515 mL/min (>60); Estimated Creatinine Clearance 277.78 ml/min; Glucose 116 mg/dL (74-106); Potassium 3.4 mmol/L (3.5-5.1); Sodium Level 141 mmol/L (136-145)
[2022-12-13 08:25] VITALS: O2SAT 97
[2022-12-13] MEDS: Pantoprazole Sodium 40 MG in 0.9% Normal Saline (100mL MB+) 100 ML 330 MG IV (09:32)
--- NOTE | 2022-12-13 11:47 | EX.PCM.PN.GI ---
Subjective Subjective No issues with his tube feedings or vomiting overnight. Objective Data Objective Data Vital Signs: Vital Signs Temp Pulse Resp BP Pulse Ox O2 Del Method O2 Flow Rate 98.6 F 89 18 150/98 H 97 Mechanical Ventilator 4.5 12/13/22 07:56 12/13/22 07:56 12/13/22 07:56 12/13/22 07:56 12/13/22 08:25 12/13/22 09:00 12/13/22 08:25 FiO2 30 12/13/22 09:00 Oxygen Flow Rate (L/min) 4.5 Oxygen Delivery Method Mechanical Ventilator Weight: 170 lb 13.732 oz Body Mass Index (BMI) 33.3 Intake & Output: Intake and Output for Last 24 Hours 12/11/22 12/12/22 12/13/22 23:59 23:59 23:59 Intake Total 1828.33 / 1913.33 4080.00 / 4190.00 1168.33 / 1168.33 Output Total 382 / 507 125 / 125 Balance 1827.33 / 1882.33 3698.00 / 3683.00 1043.33 / 1043.33 Lab / Micro Data 12/13/22 07:45 12/13/22 07:45 Labs: Laboratory Results - last 24 hr 12/13/22 07:45: WBC 7.6, RBC 3.74 L, Hgb 9.9 L, Hct 32.7 L, MCV 87.4, MCH 26.5 L, MCHC 30.3 L, RDW Std Deviation 46.0 H, RDW Coeff of Emilee 14.4, Plt Count 166, MPV 9.9, Sodium 141, Potassium 3.4 L, Chloride 109 H, Carbon Dioxide 27.0, Anion Gap 5, BUN 12, Creatinine 0.25 L, Estim Creat Clear Calc 277.78, Est GFR (MDRD) Af Amer 515, Est GFR (MDRD) Non-Af 426, BUN/Creatinine Ratio 47.2 H, Glucose 116 H, Calcium 7.4 L Physical Exam Const alert Constitutional Narrative: no acute distress. HEENT normocephalic, head/scalp atraumatic, hearing grossly normal bilaterally, nasal mucous membranes and turbinates normal and moist oral mucous membranes Eyes PERRL, EOMs intact bilaterally and conjunctivae normal Neck full ROM, no lymphadenopathy and supple Lymph Lymphatic: no lymphadenopathy noted Chest inspection of chest normal Resp Resp Narrative: Trach mask in place, patient saturating well on supplemental O2, no increased work of breathing noted. Cardio regular rate, regular rhythm, no murmurs and peripheral pulses 2+ throughout GI GI Narrative: Colostomy in place without issue, G-tube in place without issue. Patient's abdomen soft, nontender, nondistended. Back/Spine normal ROM Extremity normal to inspection, full ROM and no pedal edema Skin no rashes or lesions noted Assessment & Plan Assessment/Plan (1) GI bleed: QUALIFIERS: GI bleed type/associated pathology: unspecified gastrointestinal hemorrhage type Qualified Code(s): K92.2 - Gastrointestinal hemorrhage, unspecified PLAN: Plan 42-year-old with history of severe cerebral palsy with severe spasticity, urinary catheter dependent and PEG dependent along with a end colostomy ,on constant baclofen therapy who presents with upper GI bleed. Hematemesis-patient is doing well from a GI bleed standpoint. Recommended continue PPI therapy. He also will need sulcal fate therapy likely crushed and placed into the stomach 3 times a day for the next 4 to 6 weeks. He is on octreotide at this time and that will need to be continued while he is in the hospital. His tube feeds can be resumed that his hemoglobin seems stable. 12/13-patient is doing well and seems to be in close back to his baseline. No problems with his ostomy. 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 Continue current management. Charges/Coding Visit Charges Inpatient E&M: 23957 [facility] Hosp L3
--- NOTE | 2022-12-13 12:42 | DCINST_ITS ---
Discharge Instructions Diet Discharge Diet: No restrictions Activity Discharge Activity: Return to Normal Activity Follow Up Care Please Follow Up With: Timmy Conn MD When: As needed Test Results: Test results from this visit will be discussed in further detail at your follow- up appointment, if applicable. Pending Tests Upon Discharge: None Discharge Plan Admission Admit Date/Time: 12/10/22 12:21 Primary Reason for Your Visit: upper GI bleed Attending Provider: Donte Abebe Primary Care Provider: Timmy Conn Discharge Orders/Prescriptions Prescriptions: New sucralfate 1 gram Tablet 1 g G-tube 1HR_ACHS 30 Days Qty: 120 0RF Continued albuterol sulfate 2.5 mg /3 mL (0.083 %) solution for nebulization 2.5 mg inhalation Q4H PRN (Reason: Sob &/Or Wheezing) metoclopramide HCl 5 mg/5 mL solution 10 mg feeding tube 0830,1600,2100 phenobarbital 20 MG/5 ML elixir 60 mg G-tube 0830,2100 Cough Assist 1 dose .Route .MEDSUPPLY Rx Instructions: Inspiratory and Expiratory times of 20-40 seconds with a 1-2 second pause. oxygen concentrator 1 dose .Route .MEDSUPPLY Rx Instructions: As directed lactose-reduced food with fibr 0.06 gram-1.2 kcal/mL liquid 1,000 ml G-tube DAILY Patient Comments: PER PT HOME MED LIST: JEVITY 1.2 BENNY/ML 4.5-5 CARTONS PER DAY. APPROXIMATELY 1 LITER PER DAY. 55ML/HOUR TO 65ML DURING THE DAY. SLOW THIS DOWN TO 45 ML/HOUR AT NIGHT. gabapentin 250 MG/5 ML solution 500 mg G-tube 0000,0600,1200,1800 Patient Comments: PER PT HOME MED LIST: GABAPENTIN DOSING -IF MO'S HEART RATE IS LOW I DON'T ALWAYS GIVE THE WHOLE 10ML GABAPENTIN DOSE MY GUIDES ARE: PULSE <50: I MIGHT WAIT 1 HOUR FOR HIM TO BE MORE AWAKE. GIVE 4 ML PULSE IN THE 50'S: GIVE 5ML OR 6 ML PULSE IN THE 60'S: GIVE 6ML TO 7ML PULSE 69>: GIVE THE WHOLE 10ML plecanatide 3 mg tablet 3 mg GT 0830 doxazosin 2 mg tablet 2 mg GT 0830 cholecalciferol (vitamin D3) 10 mcg/mL (400 unit/mL) drops 15 mcg feeding tube 0830 guaifenesin 200 mg/5 mL liquid 200 mg feeding tube 0830 PRN (Reason: COUGH/CONGESTION) alum-mag hydroxide-simeth 200-200-20 mg/5 mL suspension 5 ml PO 0000,0600,1200,1800 PRN (Reason: ANTACID) acetaminophen 650 mg/20.3 mL suspension 650 mg feeding tube 0000,0600,1200,1800 PRN (Reason: PAIN ) lorazepam [Ativan] 2 mg/mL solution 1 mg IM DAILY PRN (Reason: AGITATION ) cetirizine 1 mg/mL solution 10 mg feeding tube 1600 baclofen 20 mg tablet 20 mg feeding tube .every 6 hours Changed esomeprazole magnesium [Nexium Packet] [address] for susp in packet 40 mg G-tube BID 90 Days Qty: 180 1RF Discontinued famotidine [Pepcid] 20 mg tablet 20 mg feeding tube 0830 Referrals / Follow Up: Timmy Conn MD [Primary Care Provider] - Disposition Disposition (needs filled in before D/C Order can be placed): Home, Self Care
--- NOTE | 2022-12-13 12:47 | DS.PCM_ITS ---
Providers Date of Admission: 12/10/22 Date of Discharge: 12/13/22 Primary Care Physician: Dr. Timmy Conn MD Reason For Visit: GI BLEED Diagnosis Discharge Diagnosis (1) GI bleed: Status: Resolved Code(s): K92.2 - Gastrointestinal hemorrhage, unspecified Qualifiers: GI bleed type/associated pathology: unspecified gastrointestinal hemorrhage type Qualified Code(s): K92.2 - Gastrointestinal hemorrhage, unspecified Medications at Discharge Home Medications phenobarbital 20 mg/5 mL (4 mg/mL) oral elixir 60 mg G-tube 0830,2100 SEIZURES 02/19/17 metoclopramide HCl 5 mg/5 mL oral solution 10 mg feeding tube 0830,1600,2100 STOMACH 09/16/18 Cough Assist 1 dose .Route .MEDSUPPLY assist in clearing secretions 12/25/18 oxygen concentrator 1 dose .Route .MEDSUPPLY second unit, 4 LPM cont all modalities 12/25/18 gabapentin 250 mg/5 mL oral solution 500 mg G-tube 0000,0600,1200,1800 SEIZURES 09/26/19 albuterol sulfate 2.5 mg/3 mL (0.083 %) solution for nebulization 2.5 mg inhalation Q4H PRN Sob &/Or Wheezing 11/27/20 lactose-reduced food with fiber 0.06 gram-1.2 kcal/mL oral liquid 1,000 ml G- tube DAILY NUTRITION 11/27/20 plecanatide 3 mg tablet 3 mg G-tube 0830 BOWELS 11/27/20 doxazosin 2 mg tablet 2 mg PO 0830 BLOOD PRESSURE 11/30/21 cholecalciferol (vitamin D3) 10 mcg/mL (400 unit/mL) oral drops 15 mcg feeding tube 0830 SUPPLEMENT 03/24/22 guaifenesin 200 mg/5 mL oral liquid 200 mg feeding tube 0830 PRN COUGH/CONGESTION 03/24/22 acetaminophen 650 mg/20.3 mL oral suspension 650 mg feeding tube 0000,0600,1200,1800 PRN PAIN 10/24/22 aluminum-mag hydroxide-simethicone 200 mg-200 mg-20 mg/5 mL oral susp 5 ml PO 0000,0600,1200,1800 PRN ANTACID 10/24/22 cetirizine 1 mg/mL oral solution 10 mg feeding tube 1600 ALLERGIES 10/24/22 lorazepam 2 mg/mL injection solution (Ativan) 1 mg IM DAILY PRN AGITATION 10/24/22 baclofen 20 mg tablet 20 mg feeding tube .every 6 hours muscle spasms 12/10/22 esomeprazole magnesium 40 mg granules delayed release for susp (Nexium Packet) 40 mg PO BID 30 days #60 ea 12/13/22 sucralfate 100 mg/mL oral suspension (Carafate) 10 ml PO BID #1,000 mL 12/13/22 Hospital Course Operations None Procedures EGD and - (Chest x-ray, CT abdomen pelvis with IV contrast) Summary of Care Provided Minutes Spent on Discharge: 38 Hospital Course: Patient is a 42-year-old male with 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 Medical conditions addressed during hospitalization as noted below. Upper GI bleed, resolved: Known history of GI bleeding secondary to gastric ulcers. Had EGD done with Dr. Wilson for this about 2 to 3 years ago. Had been on PPI twice daily since then, was de-escalated to PPI daily sometime this summer per patient's family. Mother notably reports emptying colostomy bag yesterday, nonbloody and not consistent with melena. Hemoglobin 12.4 on admit, baseline hemoglobin around 10-11. BUN 16, creatinine 0.35, BUN to creatinine ratio 45. CT abdomen pelvis with IV contrast on 12/10/2022 showed known chronic changes, no focal acute inflammatory process. Gastroenterology followed. S/p EGD on 12/11 ? 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 IV bolus of 50 mcg of octreotide administered, followed by octreotide subcu 3 times daily. Patient did have some episodes of small-volume vomitus that was blood-tinged after the EGD, resolved by the following night. Started on sucralfate twice daily and resumed PPI twice daily on discharge. Short course of Zofran as needed also provided on discharge. Acute on chronic anemia, stable: Secondary to GI bleed as noted above. Hemoglobin 12.4 on admit, baseline hemoglobin around 10-11. Suspect patient was somewhat dry on admission. Hemoglobin remained stable around 10, hemoglobin of 9.9 on discharge. Discharge diagnoses: ? Upper GI bleed, resolved ? Acute on chronic anemia, stable ? Spastic cerebral palsy ? Chronic hypoxic respiratory failure s/p tracheostomy with ventilator dependence ? Seizure disorder Total clinical time spent by myself addressing the patient's discharge needs: 38 minutes. Physical Exam Const alert Constitutional Narrative: Alert, obese, nonverbal, lying comfortably in bed, no acute distress. HEENT normocephalic, head/scalp atraumatic, hearing grossly normal bilaterally, nasal mucous membranes and turbinates normal and moist oral mucous membranes Eyes PERRL, EOMs intact bilaterally and conjunctivae normal Neck full ROM, no lymphadenopathy and supple Lymph Lymphatic: no lymphadenopathy noted Chest inspection of chest normal Resp Resp Narrative: Trach mask in place, patient saturating well on supplemental O2, no increased work of breathing noted. Cardio regular rate, regular rhythm, no murmurs and peripheral pulses 2+ throughout GI GI Narrative: Colostomy in place without issue, G-tube in place without issue. Patient's abdomen soft, nontender, nondistended. Back/Spine normal ROM Extremity normal to inspection, full ROM and no pedal edema Skin no rashes or lesions noted Weight / BMI Weight Weight: 77.5 kg Body Mass Index (BMI) 33.3 ABG / Lab / Microbiology Data 12/13/22 07:45 12/13/22 07:45 Laboratory: Laboratory Results - last 24 hr 12/13/22 07:45: WBC 7.6, RBC 3.74 L, Hgb 9.9 L, Hct 32.7 L, MCV 87.4, MCH 26.5 L , MCHC 30.3 L, RDW Std Deviation 46.0 H, RDW Coeff of Emilee 14.4, Plt Count 166, MPV 9.9, Sodium 141, Potassium 3.4 L, Chloride 109 H, Carbon Dioxide 27.0, Anion Gap 5, BUN 12, Creatinine 0.25 L, Estim Creat Clear Calc 277.78, Est GFR (MDRD) Af Amer 515, Est GFR (MDRD) Non-Af 426, BUN/Creatinine Ratio 47.2 H, Glucose 116 H, Calcium 7.4 L D/C Instructions Discharge Diet: No restrictions Pending Tests Upon Discharge: None Please Follow Up With: Timmy Conn MD When: As needed Meaningful Use Info Meaningful Use Diagnoses (Choose all that apply): None applicable Discharge Plan Admission Admit Date/Time: 12/10/22 12:21 Primary Reason for Your Visit: upper GI bleed Attending Provider: Donte Abebe Primary Care Provider: Timmy Conn Discharge Orders/Prescriptions Prescriptions: New sucralfate [Carafate] 100 mg/mL suspension 10 ml PO BID Qty: 1000 1RF esomeprazole magnesium [Nexium Packet] [address] for susp in packet 40 mg PO BID 30 Days Qty: 60 2RF Continued albuterol sulfate 2.5 mg /3 mL (0.083 %) solution for nebulization 2.5 mg inhalation Q4H PRN (Reason: Sob &/Or Wheezing) metoclopramide HCl 5 mg/5 mL solution 10 mg feeding tube 0830,1600,2100 phenobarbital 20 MG/5 ML elixir 60 mg G-tube 0830,2100 Cough Assist 1 dose .Route .MEDSUPPLY Rx Instructions: Inspiratory and Expiratory times of 20-40 seconds with a 1-2 second pause. oxygen concentrator 1 dose .Route .MEDSUPPLY Rx Instructions: As directed lactose-reduced food with fibr 0.06 gram-1.2 kcal/mL liquid 1,000 ml G-tube DAILY Patient Comments: PER PT HOME MED LIST: JEVITY 1.2 BENNY/ML 4.5-5 CARTONS PER DAY. APPROXIMATELY 1 LITER PER DAY. 55ML/HOUR TO 65ML DURING THE DAY. SLOW THIS DOWN TO 45 ML/HOUR AT NIGHT. gabapentin 250 MG/5 ML solution 500 mg G-tube 0000,0600,1200,1800 Patient Comments: PER PT HOME MED LIST: GABAPENTIN DOSING -IF MO'S HEART RATE IS LOW I DON'T ALWAYS GIVE THE WHOLE 10ML GABAPENTIN DOSE MY GUIDES ARE: PULSE <50: I MIGHT WAIT 1 HOUR FOR HIM TO BE MORE AWAKE. GIVE 4 ML PULSE IN THE 50'S: GIVE 5ML OR 6 ML PULSE IN THE 60'S: GIVE 6ML TO 7ML PULSE 69>: GIVE THE WHOLE 10ML plecanatide 3 mg tablet 3 mg GT 0830 doxazosin 2 mg tablet 2 mg GT 0830 cholecalciferol (vitamin D3) 10 mcg/mL (400 unit/mL) drops 15 mcg feeding tube 0830 guaifenesin 200 mg/5 mL liquid 200 mg feeding tube 0830 PRN (Reason: COUGH/CONGESTION) alum-mag hydroxide-simeth 200-200-20 mg/5 mL suspension 5 ml PO 0000,0600,1200,1800 PRN (Reason: ANTACID) acetaminophen 650 mg/20.3 mL suspension 650 mg feeding tube 0000,0600,1200,1800 PRN (Reason: PAIN ) lorazepam [Ativan] 2 mg/mL solution 1 mg IM DAILY PRN (Reason: AGITATION ) cetirizine 1 mg/mL solution 10 mg feeding tube 1600 baclofen 20 mg tablet 20 mg feeding tube .every 6 hours Discontinued esomeprazole magnesium [Nexium Packet] [address] for susp in packet 40 mg G-tube 0830 famotidine [Pepcid] 20 mg tablet 20 mg feeding tube 0830 Referrals / Follow Up: Timmy Conn MD [Primary Care Provider] - Disposition Disposition (needs filled in before D/C Order can be placed): Home, Self Care Charges/Coding Visit Charges Inpatient E&M: 00895 Disch Hosp >30min
== END 2022-12-13 20:00 | disposition home or self-care (01) | DRG 377 ==
LOC: ED 10:19 → PCU 12:31
PROVIDERS: Internal Medicine Gastroenterology; Admitting Provider Hospitalist; Emergency Provider Emergency Medicine; PCP Family Medicine; Visit Provider Hospitalist
PROC: 0DJ08ZZ Inspection of Upper Intestinal Tract, Via Natural or Artificial Opening Endoscopic (ICD-10-PCS; CPT 43235; principal; 2022-12-11 11:25)
DX: K31.811 Angiodysplasia of stomach and duodenum with bleeding (principal); R53.2 Functional quadriplegia; J96.11 Chronic respiratory failure with hypoxia; Z99.11 Dependence on respirator [ventilator] status; G80.1 Spastic diplegic cerebral palsy; Z93.0 Tracheostomy status; G40.909 Epilepsy, unspecified, not intractable, without status epilepticus; Z93.3 Colostomy status; Z93.1 Gastrostomy status; K26.9 Duodenal ulcer, unspecified as acute or chronic, without hemorrhage or perforation; Z80.0 Family history of malignant neoplasm of digestive organs; Z79.899 Other long term (current) drug therapy
CPT/HCPCS: 31720; 36591; 71045; 74177; 80048; 80053; 83690; 85025; 85027; 85610; 85730; 93005; 94762; 97802; 99285; J7030; J7040; Q9967; A4216; J2354; J2405; J3490

== ENCOUNTER → 2023-01-04 | Outpatient (CLI) | payer MEDICARE, MEDICAID, SELFPAY ==
[2023-01-04 09:34] LABS: Absolute Lymphocyte Count 2.04 X10^3/uL (0.83-4.51); Absolute Neutrophil Count 3.9 X10^3/uL (2.0-7.7); Basophil# 0.02 X10^3/uL; Basophil% 0.3 % (0-1); Eosinophils% 4.4 % (0-5); Hematocrit 34.9 % (40-54); Hemoglobin 10.6 g/dL (13.0-16.5); Lymphocyte # 2.04 X10^3/ul (0.83-4.51); Lymphocyte % 29.7 % (19-41); Mean Corp Hgb Conc 30.4 g/dL (32-36); Mean Corpuscular Hgb 25.8 pg (27.0-32.0); Mean Corpuscular Volume 84.9 fL (80-94); Mean Platelet Vol. 10.3 fl (6.2-12.0); Monocyte# 0.58 X10^3/uL; Monocyte% 8.4 % (0-10); NRBC Flagged by Analyzer 0 % (0-5); Neutrophil # 3.93 X10^3/uL (2.7-7.7); Neutrophil % 57.1 % (47-70); Platelet Count 172 K/mm3 (150-450); RBC Distribution Width CV 14.6 % (11.6-14.6); RBC Distribution Width SD 45.1 fl (35.1-43.9); Red Blood Count 4.11 M/mm3 (4.6-6.2); White Blood Count 6.9 K/mm3 (4.4-11.0)
[2023-01-04 09:55] LABS: Anion Gap 5 (5-15); BUN 17 mg/dL (7-18); BUN/Creat Ratio 65.4 RATIO (10-20); Calcium,Total 8.1 mg/dL (8.5-10.1); Chloride 105 mmol/L (98-107); Creatinine, Serum 0.26 mg/dL (0.70-1.30); EST Glomerular Filtration Rate 414 mL/min (>60); Est Glom Filt Rate - Afr Amer 501 mL/min (>60); Glucose 91 mg/dL (74-106); Potassium 3.9 mmol/L (3.5-5.1); Sodium Level 141 mmol/L (136-145)
== END | disposition home or self-care (01) ==
LOC: LABSPEC 09:25
PROVIDERS: PCP Family Medicine; Referring Provider Family Medicine; Visit Provider Family Medicine
DX: E55.9 Vitamin D deficiency, unspecified (principal); K31.84 Gastroparesis
CPT/HCPCS: 80048; 85025

== ENCOUNTER 2023-01-16 19:16 | Emergency (ER) | payer MEDICARE, MEDICAID, SELFPAY ==
[2023-01-16 19:16] VITALS: BP 158/116; PULSE 123; RESP 16; O2SAT 96
[2023-01-16 19:17] VITALS: BP 158/116; PULSE 125; RESP 12; TEMP 36.3; O2SAT 95; BMI 34.4
--- NOTE | 2023-01-16 19:39 | EX.ED.DYSGE1 ---
HPI <CHAMP Merlos - Last Filed: 01/16/23 20:59> History of Present Illness Chief Complaint: Nausea/Vomiting Narrative Narrative: 42-year-old male with past medical history of cerebral palsy, tracheostomy, colostomy with prolapse, chronic debility presents for evaluation. His parents state they gave his afternoon medications and then he vomited around 5 PM. He also spiked a temperature around 99 F and they gave Tylenol around 6 PM. He takes all meds through a feeding tube. Mom has had to suction out his trach more frequently this week and she is concerned for aspiration pneumonia as he has had that in the past. He is connected to a ventilator at night. Colostomy has had normal stool output. He has a chronic prolapsed hernia into the colostomy bag and the surgeon did not want to operate again. [facility] <CHAMP Merlos - Last Filed: 01/16/23 20:59> [facility] Medical History (Updated 01/16/23 @ 20:59 by CHAMP Merlos) Acute dyspnea Anemia in chronic illness Anxiety Cerebral palsy Cerebral palsy Chronic respiratory failure Chronic respiratory failure with hypoxia Colostomy prolapse Debility Edema GERD (gastroesophageal reflux disease) History of seizure disorder Iron deficiency anemia Non-smoker Nonrheumatic mitral valve prolapse Obesity On home oxygen therapy Pseudomonas pneumonia Pulmonary embolism Pulmonary embolism on left (06/14/19) Redundant colon Seizures Thrombocytopenia Tracheostomy in place Upper GI bleeding (04/2020) Home Medications phenobarbital 20 mg/5 mL (4 mg/mL) oral elixir 60 mg G-tube 0830,2100 SEIZURES 02/19/17 [History Last Taken 04/24/20 21:00] metoclopramide HCl 5 mg/5 mL oral solution 10 mg feeding tube 0830,1600,2100 STOMACH 09/16/18 [History Last Taken 04/24/20 21:00] Cough Assist 1 dose .Route .MEDSUPPLY assist in clearing secretions 12/25/18 [History Last Taken Unknown] oxygen concentrator 1 dose .Route .MEDSUPPLY second unit, 4 LPM cont all modalities 12/25/18 [History Last Taken Unknown] gabapentin 250 mg/5 mL oral solution 500 mg G-tube 0000,0600,1200,1800 SEIZURES 09/26/19 [History Last Taken 04/25/20 06:00] albuterol sulfate 2.5 mg/3 mL (0.083 %) solution for nebulization 2.5 mg inhalation Q4H PRN Sob &/Or Wheezing 11/27/20 [History Last Taken Unknown] lactose-reduced food with fiber 0.06 gram-1.2 kcal/mL oral liquid 1,000 ml G-tube DAILY NUTRITION 11/27/20 [History Last Taken Unknown] plecanatide 3 mg tablet 3 mg G-tube 0830 BOWELS 11/27/20 [History Last Taken Unknown] doxazosin 2 mg tablet 2 mg PO 0830 BLOOD PRESSURE 11/30/21 [History Last Taken Unknown] cholecalciferol (vitamin D3) 10 mcg/mL (400 unit/mL) oral drops 15 mcg feeding tube 0830 SUPPLEMENT 03/24/22 [History Last Taken Unknown] guaifenesin 200 mg/5 mL oral liquid 200 mg feeding tube 0830 PRN COUGH/CONGESTION 03/24/22 [History Last Taken Unknown] acetaminophen 650 mg/20.3 mL oral suspension 650 mg feeding tube 0000,0600,1200,1800 PRN PAIN 10/24/22 [History Last Taken Unknown] aluminum-mag hydroxide-simethicone 200 mg-200 mg-20 mg/5 mL oral susp 5 ml PO 0000,0600,1200,1800 PRN ANTACID 10/24/22 [History Last Taken Unknown] cetirizine 1 mg/mL oral solution 10 mg feeding tube 1600 ALLERGIES 10/24/22 [History Last Taken Unknown] lorazepam 2 mg/mL injection solution (Ativan) 1 mg IM DAILY PRN AGITATION 10/24/22 [History Last Taken Unknown] baclofen 20 mg tablet 20 mg feeding tube .every 6 hours muscle spasms 12/10/22 [History Last Taken Unknown] esomeprazole magnesium 40 mg granules delayed release for susp (Nexium Packet) 40 mg PO BID 30 days #60 ea 12/13/22 [Rx Last Taken Unknown] ondansetron 4 mg disintegrating tablet 4 mg PO Q8H PRN nausea and vomiting #30 tabs 12/13/22 [Rx Last Taken Unknown] sucralfate 100 mg/mL oral suspension (Carafate) 10 ml PO BID #1,000 mL 12/13/22 [Rx Last Taken Unknown] ondansetron 4 mg disintegrating tablet 4 mg PO Q8H PRN PRN Nausea #20 tabs 01/16/23 [Rx Last Taken Unknown] Allergy/AdvReac Type Severity Reaction Status Date / Time chlorhexidine Allergy Rash Verified 12/10/22 09:40 cisapride monohydrate Allergy Rash Verified 12/10/22 09:40 [From Propulsid] house dust Allergy NEEDS Verified 12/10/22 09:40 FOLLOW-UP codeine AdvReac hallucinati Verified 12/10/22 09:40 ons metronidazole [From Flagyl] AdvReac Rash Verified 12/10/22 09:40 morphine AdvReac Hallucinati Verified 12/10/22 09:40 ons Family History Mother Hepatitis C Hypertension HIV disease Father H/O heart artery stent CAD (coronary artery disease) Atrial fibrillation Hypertension Esophageal cancer Surgical History Colostomy in place Heel cord lengthening History of colostomy History of eye surgery History of gastrostomy tube placement History of open reduction and internal fixation (ORIF) procedure History of soft tissue release Status post insertion of intrathecal baclofen pump Social History household members: family housing: house current occupational status: disabled Smoking Status: Never smoker alcohol intake: never substance use type: does not use caffeine: No ROS <CHAMP Merlos - Last Filed: 01/16/23 20:59> ROS ED ROS Narrative Unable to fully obtain. Positive for fever, vomiting. EXAM <CHAMP Merlos - Last Filed: 01/16/23 20:59> Physical Exam Narrative Exam Narrative: CONST: Male with severe cerebral palsy lying in bed in no distress. EYES: Normal inspection. ENT: Protruding tongue, moist mucous membranes. NECK: Normal inspection. RESP: No respiratory distress, faint wheeze throughout. CVS: Rapid but regular rhythm, no murmur, no gallop. ABD: Soft and nontender, no guarding or rebound. Left lower colostomy bag intact with protruding pink moist bowel tissue into the bag, normal appearing brown stool. SKIN: Color normal, no rash, warm, dry, intact. EXTREMITIES: Chronic contractures. NEURO: Awake, does not interact, at baseline. PSYCH: Normal affect. Const Vital Signs: 01/16/23 19:17 01/16/23 19:16 01/16/23 21:05 Temperature 97.3 F L Temperature Source Temporal Pulse Rate 125 H 123 H 115 H Respiratory Rate 12 16 18 Respiratory Pattern Blood Pressure 158/116 H 158/116 H 138/91 H Blood Pressure Mean 130 130 106 Pulse Ox 95 96 97 Oxygen Delivery Method Trach Collar Oxygen Flow Rate (L/min) 4 4 4 01/16/23 20:50 Temperature Temperature Source Pulse Rate 114 H Respiratory Rate 28 H Respiratory Pattern Tachypnea Blood Pressure Blood Pressure Mean Pulse Ox Oxygen Delivery Method Oxygen Flow Rate (L/min) <Dr. Dalton Lester DO - Last Filed: 01/16/23 22:58> Physical Exam Const Vital Signs: 01/16/23 19:17 01/16/23 19:16 01/16/23 21:05 Temperature 97.3 F L Temperature Source Temporal Pulse Rate 125 H 123 H 115 H Respiratory Rate 12 16 18 Respiratory Pattern Blood Pressure 158/116 H 158/116 H 138/91 H Blood Pressure Mean 130 130 106 Pulse Ox 95 96 97 Oxygen Delivery Method Trach Collar Oxygen Flow Rate (L/min) 4 4 4 01/16/23 20:50 Temperature Temperature Source Pulse Rate 114 H Respiratory Rate 28 H Respiratory Pattern Tachypnea Blood Pressure Blood Pressure Mean Pulse Ox Oxygen Delivery Method Oxygen Flow Rate (L/min) MDM <CHAMP Merlos - Last Filed: 01/16/23 20:59> [facility] Narrative Medical decision making narrative: History gathered from parents. Patient had an episode of emesis and a temperature of 99 this afternoon and is brought in for evaluation. He has not had any fever above 100. He is lying in bed in no distress. Tracheostomy intact. Heart is rapid but regular. Lungs have faint wheeze so I ordered a DuoNeb. Abdomen is soft and nontender. Colostomy bag intact with chronic protruding hernia. Mom reports no recent symptoms of GI bleed which he had last month. Differential includes viral illness, aspiration pneumonia, UTI among others. Sepsis workup was initiated and he was given IV fluids and Zofran. White count is 8.7, hemoglobin of 11.6 is higher than previous. The rest of his labs are pending. Urinalysis negative. Case was signed over to the attending pending workup. Lab Data Attestation: I reviewed the patient's lab results. Labs: Laboratory Results - last 24 hr 01/16/23 20:20 WBC 8.7 RBC 4.46 L Hgb 11.6 L Hct 37.5 L MCV 84.1 MCH 26.0 L MCHC 30.9 L RDW Std Deviation 44.5 H RDW Coeff of Emilee 14.6 Plt Count 206 MPV 10.2 Immature Gran % (Auto) 0.300 Neut % (Auto) 75.2 H Lymph % (Auto) 16.8 L Hardeman % (Auto) 6.5 Eos % (Auto) 1.1 Baso % (Auto) 0.1 Absolute Neuts (auto) 6.6 Absolute Lymphs (auto) 1.47 Nucleated RBC % 0 Sodium 137 Potassium 3.7 Chloride 105 Carbon Dioxide 28.0 Anion Gap 4 L BUN 21 H Creatinine 0.30 L Estim Creat Clear Calc 231.48 Est GFR (MDRD) Af Amer 422 Est GFR (MDRD) Non-Af 349 BUN/Creatinine Ratio 69.5 H Glucose 97 Lactic Acid 0.9 Calcium 8.3 L Troponin I High Sens 4 Urine Color Yellow Urine Clarity Clear Urine pH 6.0 Ur Specific Whitlash 1.025 Urine Protein 30 H Urine Glucose (UA) Normal Urine Ketones 5 H Urine Occult Blood 10 H Urine Nitrite Negative Urine Bilirubin Negative Urine Urobilinogen Normal Ur Leukocyte Esterase 25 H Urine RBC 0 SEEN Urine WBC 0-5 SEEN Ur Squamous Epith Cells 0 SEEN Urine Bacteria 0 SEEN Urine Mucus 0 SEEN Radiography Diagnostic Testing: Clinical Impression(s) from Imaging Studies Chest X-Ray 01/16/23 20:50 IMPRESSION: 1. Port-A-Cath and tracheostomy without change. 2. Shallow inspiration, crowding of bronchovascular markings without focal infiltrate or consolidation. 3. Stable borderline cardiomegaly without congestive failure. Electronically Signed: Petros Myers MD at 21:57 EST , EKG Initial EKG: Attestation: I personally reviewed and interpreted this EKG as follows: Interpretation: Sinus Tachycardia Comments: Sinus tachycardia at 106 bpm Low voltage QRS No STEMI criteria <Dr. Dalton Lester, DO - Last Filed: 01/16/23 22:58> MDM MDM Narrative Medical decision making narrative: History gathered from parents. Patient had an episode of emesis and a temperature of 99 this afternoon and is brought in for evaluation. He has not had any fever above 100. He is lying in bed in no distress. Tracheostomy intact. Heart is rapid but regular. Lungs have faint wheeze so I ordered a DuoNeb. Abdomen is soft and nontender. Colostomy bag intact with chronic protruding hernia. Mom reports no recent symptoms of GI bleed which he had last month. Differential includes viral illness, aspiration pneumonia, UTI among others. Sepsis workup was initiated and he was given IV fluids and Zofran. White count is 8.7, hemoglobin of 11.6 is higher than previous. The rest of his labs are pending. Urinalysis negative. Case was signed over to the attending pending workup. This patient was seen with a PA/NURSING SPECIALIST Individually assessed they patient including history and physical. I have reviewed everything on the chart that is available and agree with the documentation provided by the PA/NURSING SPECIALIST including discussion about the assessment, treatment plan, discussion, and return precautions. Patient presented with tachycardia. Patient given IV fluids and Zofran. Apparently had some nausea and vomiting today. Septic work-up was ordered. CBC shows no leukocytosis. Hemoglobin stable 11.6. Platelets normal at 206. Renal function and electrolytes within normal limits. Lactic acid normal at 0.9. Urinalysis negative for infection. Chest x-ray my interpretation shows no acute process. Radiologist reports this and agree. COVID and influenza negative. EKG shows a normal sinus rhythm with a tachycardic rate 106 bpm with incomplete right bundle branch block on my interpretation patient doing well on reevaluation. Discussed findings with family. They are comfortable going home with Zofran. Patient was given his nightly dose of Reglan as well as phenobarbital. Given Zofran prescription for home. Impression: 1. Abdominal pain 2. Nausea/vomiting 3. Tachycardia?resolved Lab Data Labs: Laboratory Results - last 24 hr 01/16/23 20:20 WBC 8.7 RBC 4.46 L Hgb 11.6 L Hct 37.5 L MCV 84.1 MCH 26.0 L MCHC 30.9 L RDW Std Deviation 44.5 H RDW Coeff of Emilee 14.6 Plt Count 206 MPV 10.2 Immature Gran % (Auto) 0.300 Neut % (Auto) 75.2 H Lymph % (Auto) 16.8 L Hardeman % (Auto) 6.5 Eos % (Auto) 1.1 Baso % (Auto) 0.1 Absolute Neuts (auto) 6.6 Absolute Lymphs (auto) 1.47 Nucleated RBC % 0 Sodium 137 Potassium 3.7 Chloride 105 Carbon Dioxide 28.0 Anion Gap 4 L BUN 21 H Creatinine 0.30 L Estim Creat Clear Calc 231.48 Est GFR (MDRD) Af Amer 422 Est GFR (MDRD) Non-Af 349 BUN/Creatinine Ratio 69.5 H Glucose 97 Lactic Acid 0.9 Calcium 8.3 L Troponin I High Sens 4 Urine Color Yellow Urine Clarity Clear Urine pH 6.0 Ur Specific Whitlash 1.025 Urine Protein 30 H Urine Glucose (UA) Normal Urine Ketones 5 H Urine Occult Blood 10 H Urine Nitrite Negative Urine Bilirubin Negative Urine Urobilinogen Normal Ur Leukocyte Esterase 25 H Urine RBC 0 SEEN Urine WBC 0-5 SEEN Ur Squamous Epith Cells 0 SEEN Urine Bacteria 0 SEEN Urine Mucus 0 SEEN Radiography Diagnostic Testing: Clinical Impression(s) from Imaging Studies Chest X-Ray 01/16/23 20:50 IMPRESSION: 1. Port-A-Cath and tracheostomy without change. 2. Shallow inspiration, crowding of bronchovascular markings without focal infiltrate or consolidation. 3. Stable borderline cardiomegaly without congestive failure. Electronically Signed: Petros Myers MD at 21:57 EST Reading Location ID and State: [facility] Tel , Service support , Discharge Plan Triage Chief Complaint: Nausea/Vomiting ED Midlevel Provider: Amena Smith ED Provider: Dalton Lester Dx/Rx/DC Orders Clinical Impression: Tachycardia, Nausea and vomiting Prescriptions: New ondansetron 4 mg tablet,disintegrating 4 mg PO Q8H PRN PRN (Reason: Nausea) Qty: 20 0RF No Action albuterol sulfate 2.5 mg /3 mL (0.083 %) solution for nebulization 2.5 mg inhalation Q4H PRN (Reason: Sob &/Or Wheezing) metoclopramide HCl 5 mg/5 mL solution 10 mg feeding tube 0830,1600,2100 phenobarbital 20 MG/5 ML elixir 60 mg G-tube 0830,2100 Cough Assist 1 dose .Route .MEDSUPPLY Rx Instructions: Inspiratory and Expiratory times of 20-40 seconds with a 1-2 second pause. oxygen concentrator 1 dose .Route .MEDSUPPLY Rx Instructions: As directed lactose-reduced food with fibr 0.06 gram-1.2 kcal/mL liquid 1,000 ml G-tube DAILY Patient Comments: PER PT HOME MED LIST: JEVITY 1.2 BENNY/ML 4.5-5 CARTONS PER DAY. APPROXIMATELY 1 LITER PER DAY. 55ML/HOUR TO 65ML DURING THE DAY. SLOW THIS DOWN TO 45 ML/HOUR AT NIGHT. gabapentin 250 MG/5 ML solution 500 mg G-tube 0000,0600,1200,1800 Patient Comments: PER PT HOME MED LIST: GABAPENTIN DOSING -IF MO'S HEART RATE IS LOW I DON'T ALWAYS GIVE THE WHOLE 10ML GABAPENTIN DOSE MY GUIDES ARE: PULSE <50: I MIGHT WAIT 1 HOUR FOR HIM TO BE MORE AWAKE. GIVE 4 ML PULSE IN THE 50'S: GIVE 5ML OR 6 ML PULSE IN THE 60'S: GIVE 6ML TO 7ML PULSE 69>: GIVE THE WHOLE 10ML plecanatide 3 mg tablet 3 mg GT 0830 doxazosin 2 mg tablet 2 mg GT 0830 cholecalciferol (vitamin D3) 10 mcg/mL (400 unit/mL) drops 15 mcg feeding tube 0830 guaifenesin 200 mg/5 mL liquid 200 mg feeding tube 0830 PRN (Reason: COUGH/CONGESTION) alum-mag hydroxide-simeth 200-200-20 mg/5 mL suspension 5 ml PO 0000,0600,1200,1800 PRN (Reason: ANTACID) acetaminophen 650 mg/20.3 mL suspension 650 mg feeding tube 0000,0600,1200,1800 PRN (Reason: PAIN ) lorazepam [Ativan] 2 mg/mL solution 1 mg IM DAILY PRN (Reason: AGITATION ) cetirizine 1 mg/mL solution 10 mg feeding tube 1600 baclofen 20 mg tablet 20 mg feeding tube .every 6 hours sucralfate [Carafate] 100 mg/mL suspension 10 ml PO BID Qty: 1000 1RF esomeprazole magnesium [Nexium Packet] [address] for susp in packet 40 mg PO BID 30 Days Qty: 60 2RF ondansetron 4 mg tablet,disintegrating 4 mg PO Q8H PRN (Reason: nausea and vomiting) Qty: 30 0RF Primary Care Provider: Timmy Conn Referrals: Timmy Conn MD [Primary Care Provider] - Disposition Disposition: Home, Self Care
--- NOTE | 2023-01-16 20:29 | EKG12_ITS ---
Test Reason : NAUSEA Blood Pressure : / mmHG Vent. Rate : 106 BPM Atrial Rate : 106 BPM P-R Int : 122 ms QRS Dur : 100 ms QT Int : 386 ms P-R-T Axes : 049 -24 007 degrees QTc Int : 512 ms Sinus tachycardia Low voltage QRS Incomplete right bundle branch block Inferior infarct , age undetermined ST & T wave abnormality, consider anterolateral ischemia Abnormal ECG Confirmed by PATEL VARGAS, RACHELLE ([id number]), film and video editor JOSEMANUEL TORRES ([id number]) on 01/18/2023 12:12:00 PM Referred By: Confirmed By:RACHELLE SWEENEY MD
[2023-01-16 20:34] LABS: Bacteria 0 SEEN /hpf (None Seen); Mucous, Urine 0 SEEN /hpf (<or=2+); Red Blood Cells-Urine 0 SEEN /hpf (0-5); Squamous Epithelial Cells - UA 0 SEEN /hpf (0-5)
[2023-01-16] MEDS: 0.9% Normal Saline (1000mL) 1,000 ML 999 ML IV ×2 (20:35→23:14)
[2023-01-16] MEDS: Ondansetron 4 MG/2 ML Vial IV (20:35)
[2023-01-16 20:44] LABS: Absolute Lymphocyte Count 1.47 X10^3/uL (0.83-4.51); Absolute Neutrophil Count 6.6 X10^3/uL (2.0-7.7); Basophil# 0.01 X10^3/uL; Basophil% 0.1 % (0-1); Eosinophils% 1.1 % (0-5); Hematocrit 37.5 % (40-54); Hemoglobin 11.6 g/dL (13.0-16.5); Lymphocyte # 1.47 X10^3/ul (0.83-4.51); Lymphocyte % 16.8 % (19-41); Mean Corp Hgb Conc 30.9 g/dL (32-36); Mean Corpuscular Volume 84.1 fL (80-94); Mean Platelet Vol. 10.2 fl (6.2-12.0); Monocyte# 0.57 X10^3/uL; Monocyte% 6.5 % (0-10); NRBC Flagged by Analyzer 0 % (0-5); Neutrophil # 6.55 X10^3/uL (2.7-7.7); Neutrophil % 75.2 % (47-70); Platelet Count 206 K/mm3 (150-450); RBC Distribution Width CV 14.6 % (11.6-14.6); RBC Distribution Width SD 44.5 fl (35.1-43.9); Red Blood Count 4.46 M/mm3 (4.6-6.2); White Blood Count 8.7 K/mm3 (4.4-11.0)
[2023-01-16 20:48] LABS: Color, Urine Yellow (Yellow); Glucose, Dipstick Normal (Normal); Ketone-Dipstick 5 mg/dl (Negative); Leukocyte Esterase-Dipstick 25 /ul (Negative); Nitrite-Dipstick Negative (Negative); Occult Blood-Urine 10 /ul (Negative); Protein-Dipstick 30 mg/dl (Negative); Specific Gravity, Urine 1.025 (1.002-1.030); Urine Bilirubin Dipstick Negative (Negative); Urine Clarity Clear (Clear); Urine Urobilinogen Normal (Normal)
[2023-01-16 20:50] VITALS: PULSE 114; RESP 28
[2023-01-16] MEDS: Ipratropium/Albuterol Sulfate 3 ML AMPUL.NEB INHALATION (20:50)
--- NOTE | 2023-01-16 20:50 | RAD_ITS ---
INDICATION: fever EXAMINATION/TECHNIQUE: X-RAY - XR Chest 1 View COMPARISON: 12/10/2022 FINDINGS: LIFE-SUPPORT AND LINES: 1. RIGHT IJ Port-A-Cath is unchanged projecting along the course of the SVC. Tracheostomy is unchanged. 2. No pneumothorax. HEART AND VESSELS: Cardiac silhouette is borderline enlarged without interval change. No evidence of congestive failure. LUNGS AND PLEURAL SPACES: Lungs are clear. No focal infiltrate, consolidation or effusions. No evidence of pneumothorax. Mild basilar atelectasis, shallow inspiration, no infiltrate consolidation or effusion. MEDIASTINUM AND HILAR REGIONS: No masses adenopathy noted. No areas of calcification. Visualized upper airway is normal in position. BONY ELEMENTS: No acute bony changes noted. RAD/Chest 1 View (Portable) IMPRESSION: 1. Port-A-Cath and tracheostomy without change. 2. Shallow inspiration, crowding of bronchovascular markings without focal infiltrate or consolidation. 3. Stable borderline cardiomegaly without congestive failure. Electronically Signed: Petros Myers MD at 21:57 EST ,
[2023-01-16 20:57] LABS: White Blood Cells 0-5 SEEN /hpf (0-5)
[2023-01-16 21:03] LABS: Anion Gap 4 (5-15); BUN 21 mg/dL (7-18); BUN/Creat Ratio 69.5 RATIO (10-20); Calcium,Total 8.3 mg/dL (8.5-10.1); Chloride 105 mmol/L (98-107); EST Glomerular Filtration Rate 349 mL/min (>60); Est Glom Filt Rate - Afr Amer 422 mL/min (>60); Estimated Creatinine Clearance 231.48 ml/min; Glucose 97 mg/dL (74-106); Potassium 3.7 mmol/L (3.5-5.1); Sodium Level 137 mmol/L (136-145); Troponin-I HS 4 pg/mL (3.0-78.0)
[2023-01-16 21:05] VITALS: BP 138/91; PULSE 115; RESP 18; O2SAT 97
[2023-01-16 21:06] LABS: Lactic Acid 0.9 mmol/L (0.4-1.9)
[2023-01-16] MEDS: LORazepam 2 MG/ML Syringe 1 MG IV (21:06)
[2023-01-16] MEDS: Metoclopramide 10 MG/10 ML UDC JT (23:13)
[2023-01-16] MEDS: Phenobarbital 20 MG/5 ML UDC 60 MG GT (23:13)
[2023-01-16 23:36] VITALS: BP 127/78; PULSE 91; RESP 16; O2SAT 98
== END 2023-01-16 23:53 | disposition home or self-care (01) ==
PROVIDERS: Physician Assistant; Emergency Provider Student in an Organized Health Care Education/Training Program; PCP Family Medicine; Visit Provider Student in an Organized Health Care Education/Training Program
DX: R11.2 Nausea with vomiting, unspecified (principal); Z93.3 Colostomy status; G80.9 Cerebral palsy, unspecified; R00.0 Tachycardia, unspecified; R10.9 Unspecified abdominal pain; I45.10 Unspecified right bundle-branch block
CPT/HCPCS: 36591; 71045; 80048; 81001; 83605; 84484; 85025; 87040; 87086; 87428; 93005; 94640; 96361; 96374; 96375; 99285; J7030; P9612; A4216; J2405

== ENCOUNTER → 2023-02-03 | Outpatient (CLI) | payer MEDICARE, MEDICAID, SELFPAY ==
[2023-02-03 09:35] LABS: Absolute Lymphocyte Count 2.02 X10^3/uL (0.83-4.51); Basophil# 0.02 X10^3/uL; Basophil% 0.3 % (0-1); Eosinophil# 0.33 X10^3/uL; Eosinophils% 5.6 % (0-5); Hematocrit 33.1 % (40-54); Hemoglobin 10.3 g/dL (13.0-16.5); Lymphocyte # 2.02 X10^3/ul (0.83-4.51); Lymphocyte % 34.4 % (19-41); Mean Corp Hgb Conc 31.1 g/dL (32-36); Mean Corpuscular Hgb 25.8 pg (27.0-32.0); Monocyte# 0.53 X10^3/uL; NRBC Flagged by Analyzer 0 % (0-5); Neutrophil # 2.96 X10^3/uL (2.7-7.7); Neutrophil % 50.5 % (47-70); Platelet Count 172 K/mm3 (150-450); RBC Distribution Width CV 14.4 % (11.6-14.6); RBC Distribution Width SD 43.8 fl (35.1-43.9); Red Blood Count 3.99 M/mm3 (4.6-6.2); White Blood Count 5.9 K/mm3 (4.4-11.0)
[2023-02-03 10:07] LABS: Anion Gap 4 (5-15); BUN 16 mg/dL (7-18); BUN/Creat Ratio 51.6 RATIO (10-20); Calcium,Total 8.4 mg/dL (8.5-10.1); Chloride 105 mmol/L (98-107); Creatinine, Serum 0.31 mg/dL (0.70-1.30); EST Glomerular Filtration Rate 338 mL/min (>60); Est Glom Filt Rate - Afr Amer 409 mL/min (>60); Glucose 103 mg/dL (74-106); Potassium 3.7 mmol/L (3.5-5.1); Sodium Level 139 mmol/L (136-145)
== END | disposition home or self-care (01) ==
LOC: LABSPEC 09:20
PROVIDERS: PCP Family Medicine; Referring Provider Family Medicine; Visit Provider Family Medicine
DX: E55.9 Vitamin D deficiency, unspecified (principal); K31.84 Gastroparesis
CPT/HCPCS: 80048; 85025

== ENCOUNTER → 2023-03-01 | Outpatient (CLI) | payer MEDICARE, MEDICAID, SELFPAY ==
--- OUTSIDE RECORDS SUMMARY | 2023-03-01 09:53 | XMS RPT_ITS | CCD ---
Author Name Unknown Address [address] [place] [address] Organization [facility] Care Team Providers Care Hurl Shaker Name Role Phone Aurora VARGAS, Luis Cooley Unavailable Betty Chowdhury Unavailable Unavailable RE Angela, Bella Cooley Unavailable Unavailgalo Waite MD, Maury S Unavailable Marco SUPERVISOR [employer], Chente Unavailable Betty Chowdhury Unavailable Unavailable Betty Chowdhury Unavailable Unavailable Chente Perkins MD Primary Care Provider CHENTE PERKINS Primary Care Unavailable Yola LEAVITT Attending Unavailable CHENTE PERKINS Primary Care Unavailable Allergies Allergy Classification Reported Allergen(s) Allergy Type Date of Onset Reaction(s) Facility (16 sources) acetaminophen / codeine drug allergy 07-04-19 15 hallucinations [facility] Work Phone: [phone] (8 sources) cisapride drug allergy 07-04-19 15 [facility] Work Phone: [phone] (8 sources) codeine drug allergy 07-04-19 15 [facility] Work Phone: [phone] (14 sources) Dust; Translations: [DUST] allergy to substance 07-04-19 15 [facility] Work Phone: [phone] (8 sources) metroNIDAZOLE drug allergy 07-04-19 15 [facility] Work Phone: [phone] (14 sources) morphine; Translations: [ASTRAMORPH] allergy to substance 07-04-19 15 halluc[facility] Work Phone: [phone] (12 sources) morphine; Translations: [MORPHINE] drug allergy 06-23-19 06 Other: See Comments [facility] Work Phone: (14 sources) vancomycin; Translations: [VANCOMYCIN HCL] drug allergy 01-08-20 16 [facility] Work Phone: (6 sources) Cisapride; Translations: [PROPULSID] Drug Allergy 02-08-20 12 [facility] (6 sources) Codeine; Translations: [CODEINE] Drug Allergy 06-23-19 06 Other: See Comments [facility] Work Phone: (6 sources) metroNIDAZOLE; Translations: [METRONIDAZOLE HCL] Drug Allergy 05-09-19 15 [facility] Work Phone: Medications Completed/Discontinued Medications Medication Drug Class(es) Dates Sig (Normalized) Sig (Original) albuterol 0.83 mg/ml inhalation solution (5 sources) beta2-Adrenergic Agonist Start: 06-29-2018 take 2.5 mg by inhalation every four hours as needed albuterol (PROVENTIL) 2.5 mg /3 mL (0.083 %) nebulizer solution Use 3 mL via nebulizer every 4 hours as needed for Wheezing/Shortnes s of Breath. 0 06/29/2018 Active Problems Active Problems Problem Classification Problem Date Documented Da te Episodic/Chronic Cardiac dysrhythmias (8 sources) Paroxysmal supraventricular tachycardia; Translations: [Supraventricular tachycardia] Onset: 7 08-26-2016 Chronic Diabetes mellitus without complication (5 sources) Diabetes mellitus; Translations: [Type 2 diabetes mellitus without complications] Onset: 9 06-18-2018 Chronic Epilepsy; convulsions (5 sources) Epilepsy; Translations: [Epilepsy, unspecified, not intractable, without status epilepticus] Onset: 9 07-17-2018 Chronic Heart valve disorders (7 sources) Nonrheumatic mitral (valve) prolapse; Translations: [Nonrheumatic mitral (valve) prolapse] Onset: 7 08-28-2016 Chronic Nutritional deficiencies (5 sources) Undernutrition; Translations: [Mild protein-calorie malnutrition] Onset: 9 06-01-2018 Chronic Other disorders of stomach and duodenum (1 source) Disorder of function of stomach; Translations: [Disease of stomach and duodenum, unspecified] Episodic Other gastrointestinal disorders (1 source) Colostomy present; Translations: [Encounter for attention to colostomy] Chronic Other gastrointestinal disorders (1 source) Encounter for attention to colostomy; Translations: [Attention to colostomy (HCC)] Onset: 3 Chronic Other nutritional; endocrine; and metabolic disorders (5 sources) Obese class I; Translations: [Obesity, unspecified] Onset: 9 06-01-2018 Chronic Paralysis (20 sources) Tetraplegic cerebral palsy; Translations: [Cerebral palsy] Onset: 6 01-08-2016 Chronic Unclassified (5 sources) ASA CLASS III Onset: 6 07-15-2005 Unclassified (10 sources) SUMMARY; Translations: [SUMMARY] Onset: 3 02-17-2021 Past or Other Problems Problem Classification Problem Date Documented Da te Episodic/Chronic Allergic reactions (5 sources) Inflammatory dermatosis; Translations: [Dermatitis, unspecified] Onset: 9 06-01-2018 Episodic Aspiration pneumonitis; food/vomitus (13 sources) Aspiration pneumonia; Translations: [Recurrent aspiration pneumonia] Onset: 5 07-04-2014 Episodic Bacterial infection; unspecified site (5 sources) Clostridioides difficile infection; Translations: [Other bacterial infections of unspecified site] Onset: 5 02-17-2021 Episodic Complications of surgical procedures or medical care (5 sources) Wound dehiscence; Translations: [Disruption of external operation (surgical) wound, not elsewhere classified, initial encounter] Onset: 9 06-01-2018 Episodic Epilepsy; convulsions (5 sources) Seizure; Translations: [Unspecified convulsions] Onset: 3 02-17-2021 Episodic Fever of unknown origin (5 sources) Fever, unspecified; Translations: [Fever, unspecified] Onset: 3 Episodic Fluid and electrolyte disorders (5 sources) Hyponatremia; Translations: [Hypo-osmolality and hyponatremia] Onset: 5 02-17-2021 Episodic Gastritis and duodenitis (5 sources) Acute gastritis; Translations: [Acute gastritis without bleeding] Onset: 3 Episodic Gastrointestinal hemorrhage (5 sources) Hematemesis; Translations: [Hematemesis] Onset: 5 02-17-2021 Episodic Immunizations and screening for infectious disease (8 sources) Infectious disease carrier; Translations: [Carrier of other intestinal infectious diseases] Onset: 6 01-08-2016 Episodic Inflammation, infection of eye (8 sources) Acute conjunctivitis; Translations: [Unspecified acute conjunctivitis, unspecified eye] Onset: 6 01-08-2016 Episodic Nausea and vomiting (5 sources) Vomiting; Translations: [Vomiting, unspecified] Onset: 3 Episodic Other aftercare (8 sources) Encounter for adjustment and management of vascular access device; Translations: [Encounter for adjustment and management of vascular access device] Onset: 7 05-27-2016 Episodic Other aftercare (5 sources) Drug therapy finding; Translations: [Other termite treater helper (current) drug therapy] Onset: 5 02-17-2021 Episodic Other circulatory disease (7 sources) Electrocardiogram abnormal; Translations: [Abnormal electrocardiogram [ECG] [EKG]] Onset: 7 08-28-2016 Episodic Other connective tissue disease (6 sources) Standard chest X-ray abnormal; Translations: [Other nonspecific abnormal finding of lung field] Onset: 7 08-28-2016 Episodic Other connective tissue disease (5 sources) Spasticity; Translations: [Cramp and spasm] Onset: 9 06-09-2018 Episodic Other disorders of stomach and duodenum (5 sources) Gastroparesis syndrome; Translations: [Gastroparesis] Onset: 9 07-17-2018 Episodic Other gastrointestinal disorders (8 sources) Dysphagia; Translations: [Dysphagia, unspecified] Onset: 6 01-08-2016 Episodic Other gastrointestinal disorders (5 sources) Swallowing problem; Translations: [Dysphagia, unspecified] Onset: 3 Episodic Other gastrointestinal disorders (5 sources) Constipation; Translations: [Constipation, unspecified] Onset: 3 02-17-2021 Episodic Other gastrointestinal disorders (5 sources) Chronic constipation; Translations: [Other constipation] Onset: 5 02-17-2021 Episodic Other liver diseases (5 sources) Enzyme level - finding; Translations: [Transaminitis] Onset: 3 12-18-2012 Episodic Other nervous system disorders (5 sources) Postoperative pain ; Translations: [Other acute postprocedural pain] Onset: 5 02-17-2021 Episodic Other skin disorders (5 sources) Eruption; Translations: [Rash and other nonspecific skin eruption] Onset: 3 Episodic Residual codes; unclassified (5 sources) Tube feeding diet; Translations: [Other specified health status] Onset: 5 02-17-2021 Episodic Respiratory failure; insufficiency; arrest (adult) (5 sources) Respiratory failure; Translations: [Respiratory failure, unspecified, unspecified whether with hypoxia or hypercapnia] Onset: 9 07-17-2018 Episodic Septicemia (except in labor) (5 sources) Sepsis; Translations: [Sepsis, unspecified organism] Onset: 3 Episodic Unclassified (6 sources) Localized edema; Translations: [Localized edema] Onset: 7 08-28-2016 Episodic Results Test Name Value Interpretation Reference Range Facil ity Vital Signs Date Time Vital Sign Value Performing Clinician Ascencion ureña 08-28-2016 09:39-0400 BMI (Body Mass Index) 30.27 kg/m2 [facility] Work Phone: 08-28-2016 09:39-0400 BP Diastolic 62 mm[Hg] [facility] Work Phone: 08-28-2016 09:39-0400 BP Systolic 106 mm[Hg] [facility] Work Phone: 08-28-2016 09:39-0400 Height 152.4 cm [facility] Work Phone: 08-28-2016 09:39-0400 Pulse (Heart Rate) 78 /min [facility] Work Phone: 08-28-2016 09:39-0400 Respiratory Rate 12 /min [facility] Work Phone: 08-28-2016 09:39-0400 Weight 70.31 kg Betty Chowdhury [facility] Work Phone: 06-15-2016 11:14-0400 BP Diastolic 87 mm[Hg] Chente Lara SUPERVISOR [employer] [facility] Work Phone: 06-15-2016 11:14-0400 BP Systolic 111 mm[Hg] Chente Lara SUPERVISOR [employer] [facility] Work Phone: 06-15-2016 11:14-0400 Pulse (Heart Rate) 60 /min Chente Lara SUPERVISOR [employer] [facility] Work Phone: 06-15-2016 11:14-0400 Respiratory Rate 16 /min Chente Lara SUPER[employer]OR [employer] [facility] Work Phone: 01-08-2016 09:55-0500 Body Temperature 97.2 [degF] Chente Lara SUPER[employer]OR [employer] [facility] Work Phone: Encounters Encounter Date Encounter Type Care Provider Facility Start: 06-30-2022 Telephone encounter [facility] Work Phone: Colorectal Surgery Procedures Date Procedure Procedure Detail Performing Clinician Start: 04-05-2018 H/O: surgery Status post insertion of intrathecal baclofen pump LELIA Leavitt MD Work Phone: Start: 08-28-2016 End: 08-28-2016 *BMP Maury Waite MD Start: 08-28-2016 End: 08-28-2016 BNP Maury Waite MD Start: 05-27-2016 End: 05-28-2016 aPTT Luis Simon MD Work Phone: Start: 05-27-2016 End: 05-28-2016 CBC W Auto Differential panel - Blood Luis Simon MD Work Phone: Start: 05-27-2016 End: 05-28-2016 Coagulation factor induced.INR assay in platelet poor plasma Luis Simon MD Work Phone: Start: 07-03-2014 End: 07-04-2014 Documentation of current medications Jacek Monsalve Work Phone: Plan of Treatment Date Care Activity Detail Author Start: 02-22-2022 DEPRESSION ASSESSMENT DEPRESSION ASSESSMENT [facility] Start: 10-23-2021 Influenza vaccination INFLUENZA (#1) [facility] Start: 10-15-2018 Hemoglobin A1c/Hemoglobin.total in Blood HBA1C [facility] Start: 08-27-2017 End: 08-27-2017 Appointment Appointment [facility] Work Phone: Start: 08-28-2016 End: 08-28-2016 Appointment Appointment [facility] Work Phone: Start: 08-28-2016 End: 08-28-2016 *BMP *BMP [facility] Work Phone: Start: 08-28-2016 End: 08-28-2016 BNP *Brain Natriuretic Peptide BNP [facility] Work Phone: Start: 08-28-2016 End: 08-28-2016 CONDITIONER TENDER CONDITIONER TENDER [facility] Work Phone: Start: 08-28-2016 End: 08-28-2016 Follow Up Appt 1 year Follow Up Appt 1 year [facility] Work Phone: Start: 05-27-2016 End: 05-28-2016 aPTT *PTT-Partial Thromboplastin Time [facility] Work Phone: Start: 05-27-2016 End: 05-28-2016 CBC W Auto Differential panel - Blood *CBC [facility] Work Phone: Start: 05-27-2016 End: 05-28-2016 Coagulation factor induced.INR assay in platelet poor plasma *PT/INR [facility] Work Phone: Start: 01-08-2016 End: 01-08-2016 Bacterica wound culture *Culture and Sensitivity, wound [facility] Work Phone: Start: 04-12-2012 Hepatitis B screening URINE ALBUMIN:CREATININE RATIO [facility] Start: 04-08-2012 Hepatitis B surface antibody level LDL CHOLESTEROL [facility] Start: 04-08-2012 PNEUMOCOCCAL (2 - PCV) PNEUMOCOCCAL (2 - PCV) [facility] Start: 2001 Urine microalbumin profile DTAP,TDAP,TD (1 - Tdap) [facility] Start: 02-01-2000 ANNUAL PCP TEAM CHRONIC DISEASE VISIT ANNUAL PCP TEAM CHRONIC DISEASE VISIT [facility] Start: 02-01-2000 HIV SCREENING HIV SCREENING [facility] Start: 02-01-1992 3 comp foot exam completed DIABETIC FOOT EXAM [facility] Start: 02-01-1992 Hepatitis C antibody, confirmatory test DILATED RETINAL EXAM [facility] Start: 1982 COVID-19 VACCINE (#1) COVID-19 VACCINE (#1) [facility] Start: 1982 HEPATITIS B (1 of 3 - 3-dose series) HEPATITIS B (1 of 3 - 3-dose series) [facility] Immunizations Immunization Date Immunization Notes Care Provider Fa radha 11-08-2014 influenza, injectabl e, quadrivalent, preservative free LELIA Leavitt MD Work Phone: [facility] 12-14-2012 influenza virus vacc ine, unspecified formulation LELIA Leavitt MD Work Phone: [facility] 04-08-2011 influenza virus vacc ine, unspecified formulation LELIA Leavitt MD Work Phone: [facility] 04-08-2011 pneumococcal polysaccharide vaccine, 23 valent LELIA Leavitt MD Work Phone: [facility] Payers Date Payer Category Payer Medicare MEDICARE MEDICAR E A AND B [id number] 2020-Present [phone] [place] [address] Medicare [id number] 2020 Medicare [id number] 2018 Medicaid MEDICAID [facility] MEDICAID [id number] 2018-Present [phone] [address] [place] [address] Medicaid [id number] 2018 Medicaid [id number] 2018 Unknown [employer] BLUE ACCE SS PPO [id number] 2018-Present [phone] [address] [place] [address] PPO [id number] 2018 Unknown [id number] Social History Date Type Detail Facility Tobacco smoking status NHIS Never smoked tobacco [facility] Start: 12-27-2019 Alcohol intake Not Asked Luis Daniel iraheta [facility] Start: 1980 Sex Assigned At Not on file [facility] Medical Equipment Procedure Code Equipment Code Equipment Origin al Text Equipment Identifier Dates Catheter Ascenda 4fr .5mm Silicone 114cm 86cm Intrathecal 2 Piece Connector - [id number] Start: 04-05-2018 Pump Int Thcl 40 ml Snchr 2 Drg - [id number] Start: 03-08-2012 Pump Synchromed Ii 87.5in Titanium Silicone 26in Intrathecal [place] - [id number] Start: 04-05-2018 Tube Shiley 10.8 mm 6.4mm 6 76mm Tracheostomy Cuff Low Pressure Fenestrate - [id number] Start: 04-20-2018 Clinical Notes 07-15-2018 to 06-30-2022 Telephone Encounter - Chichi Fowler RN - 06/30/2022 4:42 PM EDTTelephone Encounter - Amber Monreal RN - 06/30/2022 3:53 PM EDSol Cui RN - 06/15/2022 5:51 PM EDT Note Date & Type Note Facility 06-30-2022 Miscellaneous Notes [facility] nursing returned patient's mother Yue message regarding patient has baseline liquid effluent and needing number gravity drainage number. Mother also stated patient had a large passing of stool and it got on his stoma and she thinks having some irritation on mucosa. Left Message: No Information/Recommendations provided regarding giving order numbers for the gravity drainage bag via e-mail. Mother will give order numbers to [facility]. Also recommended can apply stomahesive powder on mucosa. Advised maybe irritation from mucosa rubbing on pouch d/t prolapse vs the stool. Mom agreeable. Time spent: 30 minutes Chichi Fowler, RN, BSN, CWOCN [phone] Pt's mother called. She would like to discuss pt's stoma prolapse. documented in this encounter [facility] 06-15-2022 Note HNO ID: [id number] Author: Cassie Cui RN Service: ? Author Type: Registered Nurse Type: Progress Notes Filed: 06/15/2022 6:05 PM Note Text: ET/WOCN Nursing Consult Topic: ET/WOCN Consultation Note ET Outcome: Patient presents to outpatient clinic accompanied by his parents and caregiver. He is wheel chair bound. Mother reports unpredictable wear time with current system and reports bleeding along mucocutaneous junction. She states current pouch lifts off from bottom. Patient is using a 2piece mechanical coupling pouch and it appears to be buckling off along patient's pant line. System modified. Requested samples from [employer] for [employer] SenSura Owego MAXI Drainable pouch with soft outlet #[id number]. Order form provided. Also discussed use of an abdominal binder to restrict stoma from prolapsing. ET's Next Scheduled Visit: As needed Stoma Type: End descending colostomy Diameter: while prolapsed 2 1/4 x 3 1/4 Location: low lateral LLQ Protrusion: Prolapsed, able to reduce during visit with cold compress and gentle pressure Mucosal condition and color: Red and moist with evidence of rubbing and bleeding at 7-10 o'clock and granulomas at 3-4 o'clock Mucocutaneous junction Intact Peristomal Skin: Clear and intact Peristomal contour: Rounded, bulging, consistent with peristomal hernia Supportive Tissue: Semisoft to firm Character of output: Green/kirkland liquid effluent Current pouching system: Jazzmine Cohesive StomaWrap, Devon New Image flat flange with tape collar (cutting surface up to 3 1/2 ), high volume output pouch Current wearing time: 1 day Recommendations: Skin Care: Apply ConvaTec Stomahesive powder to irritated or denuded skin, brush away excess. 3M No sting skin barrier film. Pouching System: After reducing prolapse, applied Tonia Hollihesive long wedges to peristomal skin, Coloplast post-op pouch with window, Stomahesive paste, Mefix tape to frame Wear Time: 3-4 days goal Time Increment: 1 hour 15 minutes Cassie BAL, RN, CWOCN [facility] 06-15-2022 History of Presen t illness Narrative ET/WOCN Nursing Consult Topic: ET/WOCN Consultation Note ET Outcome: Patient presents to outpatient clinic accompanied by his parents and caregiver. He is wheel chair bound. Mother reports unpredictable wear time with current system and reports bleeding along mucocutaneous junction. She states current pouch lifts off from bottom. Patient is using a 2piece mechanical coupling pouch and it appears to be buckling off along patient's pant line. System modified. Requested samples from [employer] for Coloplast SenSura Owego MAXI Drainable pouch with soft outlet #[id number]. Order form provided. Also discussed use of an abdominal binder to restrict stoma from prolapsing. ET's Next Scheduled Visit: As needed Stoma Type: End descending colostomy Diameter: while prolapsed 2 1/4 x 3 1/4 Location: low lateral LLQ Protrusion: Prolapsed, able to reduce during visit with cold compress and gentle pressure Mucosal condition and color: Red and moist with evidence of rubbing and bleeding at 7-10 o'clock and granulomas at 3-4 o'clock Mucocutaneous junction Intact Peristomal Skin: Clear and intact Peristomal contour: Rounded, bulging, consistent with peristomal hernia Supportive Tissue: Semisoft to firm Character of output: Green/kirkland liquid effluent Current pouching system: Jazzmine Cohesive StomaWrap, Tonia New Image flat flange with tape collar (cutting surface up to 3 1/2 ), high volume output pouch Current wearing time: 1 day Recommendations: Skin Care: Apply ConvaTec Stomahesive powder to irritated or denuded skin, brush away excess. 3M No sting skin barrier film. Pouching System: After reducing prolapse, applied Tonia Hollihesive long wedges to peristomal skin, Coloplast post-op pouch with window, Stomahesive paste, Mefix tape to frame Wear Time: 3-4 days goal Time Increment: 1 hour 15 minutes Cassie BAL, RN, CWOCN [facility] [address] [address] Patient: Dale Diaz Patient Address: [address] [place] [address] [place] [address] Preferred Gender: male Date of : 1980 Type of Stoma: End Descending Colostomy Diagnosis: Constipation K59.0 OSTOMY SUPPLY ORDER FORM One Piece Ostomy Pouch Item Type: [employer] Post-op pouch with a window #99068 30 day use - 2 Boxes [employer]oplast SenSura Owego MAXI Drainable Pouch with Soft Outlet Transparent Cut-to-fit 4 #67345 30 day use - 1 Box Tonia Hollihesive #8799 30 day use - 2 Boxes Procare Abdominal binder (62 -74 ) #[id number] 30 day use - 2 Binders OR Procare Abdominal binder (45 -62 ) #[id number] 30 day use - 2 Binders Refills: 11 Attending Physician: Dr. Leavitt For immediate authorization, please contact the physician s office. [facility] Nurse: VALERIANO Peters, OCN SIGNATURE: Cassie Cui RN PATIENT NAME: Dale Diaz DATE: June 15, 2022 TIME: 3:34 PM CONTACT #: [phone] documented in this encounter [facility] 06-15-2022 Note HNO ID: [id number] Author: Cassie Cui RN Service: ? Author Type: Registered Nurse Type: Progress Notes Filed: 06/30/2022 4:35 PM Note Text: [facility] [address] [address] Patient: Dale Diaz Patient Address: [address] [place] [address] [place] [address] Preferred Gender: male Date of : 1980 Type of Stoma: End Descending Colostomy Diagnosis: Constipation K59.0 OSTOMY SUPPLY ORDER FORM Coloplast SenSura Uriah MAXI Drainable Pouch with Soft Outlet Transparent Cut-to-fit 4 #09328 30 day use - 1 Box Coloplast Bed Drainage Bag #65943 30 day use-2 bags Darkroom Worker #7667 30 day use 1 Clinical Services Director Tonia Hollihesive #7767 30 day use - 2 Boxes Procare Abdominal binder (62 -74 ) #[id number] 30 day use - 2 Binders OR Procare Abdominal binder (45 -62 ) #[id number] 30 day use - 2 Binders Refills: 11 Attending Physician: Dr. Leavitt For immediate authorization, please contact the physician?s office. [facility] Nurse: VALERIANO Peters, CWOCN Addendum by: VALERIANO Virgen, CWOCN SIGNATURE: Cassie Cui RN PATIENT NAME: Dale Diaz DATE: June 15, 2022 TIME: 3:34 PM CONTACT #: [phone] [facility] 05-06-2022 Note HNO ID: [id number] Author: Yola Leavitt MD Service: ? Author Type: Physician Type: Progress Notes Filed: 05/18/2022 3:04 PM Note Text: COLORECTAL SURGERY VIRTUAL VISIT FOLLOW UP I had a virtual visit with Mr. Diaz today for follow up of prolapsing stoma. UPDATED HISTORY: Emily is a 39 year old male here today for the surgical evaluation of a prolapsing hernia. Adrian has a history of cerebral palsy, and underwent a Jamie procedure with Dr Leavitt back in October of 2014. He has not been seen at [facility] since 2019 when he came for parastomal hernia concerns. He was seen by Dr Cooley for this, no surgery was done. 12.27.2019 EGD Findings: LA Grade D (one or more mucosal breaks involving at least 75% of esophageal circumference) esophagitis with no bleeding was found. A medium-sized hiatal hernia was present. PEG balloon insitu. Otherwise unremarkable exam The examined duodenum was normal. Impression: - LA Grade D reflux esophagitis. - Medium-sized hiatal hernia. - PEG in situ - Normal examined duodenum. - No specimens collected. 12.27.2019 colonoscopy Findings: A patchy area of mildly erythematous mucosa was found in the entire colon. This was biopsied with a cold forceps for histology. The exam was otherwise without abnormality. Impression: - Preparation of the colon was fair. End colostomy - Scattered, mild , patchy erythematous mucosa in the entire examined colon. Biopsied. - The examination was otherwise normal 11/06/14 s/p Single incision sigmoid colectomy with creation of end colostomy (jamie's Procedure) PHYSICAL FINDINGS OF NOTE: Patient reported height and weight lbs General - Normal, healthy, cooperative, in no acute distress Able to interact verbally by video conference Pulmonary - respiratory effort normal Abdominal - Not performed Motor - patient seen sitting with Normal appearing strength and coordination Anorectal exam - Not Performed Medical Decision Making: Assessment Assessment AND Diagnosis: Dale Diaz is a 42 year old male with stoma prolapse Data Reviewed: Tests AND Documents Reviewed/ordered: Review of prior operative reports Review of Pathology I have independently interpreted: CT Abdomen I have discussed Dale Diaz's treatment plan and/or results with his mom. Treatment plan: FU with ET ET recommendations for prolapsing stoma I have communicated my name and active licensure. The patient's identity and physical location were verified at the time of this visit. Either the patient or their legal senior sales representative has been informed of the risks and benefits of -- and alternatives to -- treatment through a remote evaluation and consents to proceed with the evaluation remotely. Risk of morbidity, mortality and/or complications of treatment plan: moderate I spent a total of 36 minutes on the date of the service which included preparing to see the patient and [id number] patient care. [facility] [place] 05-06-2022 History of Presen t illness Narrative COLORECTAL SURGERY VIRTUAL VISIT FOLLOW UP I had a virtual visit with Mr. Diaz today for follow up of prolapsing stoma. UPDATED HISTORY: Emily is a 39 year old male here today for the surgical evaluation of a prolapsing hernia. Adrian has a history of cerebral palsy, and underwent a Jamie procedure with Dr Leavitt back in October of 2014. He has not been seen at [facility] since 2019 when he came for parastomal hernia concerns. He was seen by Dr Cooley for this, no surgery was done. 12.27.2019 EGD Findings: LA Grade D (one or more mucosal breaks involving at least 75% of esophageal circumference) esophagitis with no bleeding was found. A medium-sized hiatal hernia was present. PEG balloon insitu. Otherwise unremarkable exam The examined duodenum was normal. Impression: - LA Grade D reflux esophagitis. - Medium-sized hiatal hernia. - PEG in situ - Normal examined duodenum. - No specimens collected. 12.27.2019 colonoscopy Findings: A patchy area of mildly erythematous mucosa was found in the entire colon. This was biopsied with a cold forceps for histology. The exam was otherwise without abnormality. Impression: - Preparation of the colon was fair. End colostomy - Scattered, mild , patchy erythematous mucosa in the entire examined colon. Biopsied. 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 Treatment plan: FU with ET ET recommendations for prolapsing stoma Risk of morbidity, mortality and/or complications of treatment plan: moderate I spent a total of 36 minutes on the date of the service which included preparing to see the patient and [id number] patient care. documented in this encounter [facility] 04-14-2022 Miscellaneous Notes Called and spoke with mother Matteo Scheduled VV for her to further discuss options for Dr Leavitt Advised initially that in person visit mar be best, but patient is on a vent so it is difficult for him to travel, so we can start with VV in light of this information The patient had a Colostomy done by Dr leavitt. The patient 's mother (POA) States he is having issues with prolapse of colon, would like to see what could be done about this,. [phone] Ashly (mom) documented in this encounter [facility] 04-14-2022 Miscellaneous Notes The patients mom stated that she can get into mychart. documented in this encounter [facility] documented as of this encounter (statuses as of 04/14/2022) [facility]05-24-2019 History of Past illness Narrative* Problem Noted Date Resolved Date Malfunction of jejunostomy tube 07/15/2018 07/17/2018 ARDS (adult respiratory distress syndrome) 06/0906/09/2018 Discharge planning issues 05/20/20182018 Last Assessment & Plan: Appreciate social work and CM working towards families goal of having patient at home at discharge. Currently SW having difficulty finding home care agencies to accommodate patient needs. Family currently undergoing ventilator training, will go home when able (Plan for , 06/02) Hypotension 04/25/2018 05/21/2018 Last Assessment & Plan: 05/19: hypotensive 77/40, arterial line placed. 1L LRB, 2 u PRBC Etiology unclear: concern for possible slow bleed related to PEGJ exchange however no bleeding at insertion site and no blood with irrigation vs hypovolemia (on daily lasix) vs med induced with increased ITBP- however the latter does not explain HGB drop. - Ellen removed - BP stable - MAP goal >60 - monitor CBC Sepsis 04/23/2018 01/30/2021 Overview: Now with fevers since 06/04/2018-- normal WBC. CXR reviewed without new focal infiltrates. has chronic bilateral opacification that is also noted from CT chest 03/2018. trach cx with low colony counts of pseudomonas, proteus and normal resp ashlee Per ID note, Given the lack of purulent secretions and low colony counts from culture with no new acute process on CXR, I currently have a low suspicion for pneumonia as source of fevers consider other sources such as UTI or port related bacteremia CT abdomen/pelvis 06/09 showed RESIDUAL FLUID-FILLED POCKET, WITHOUT INTERNAL GAS. However, clinically doesn't look infected. Last Assessment & Plan: - resolved. S/p zosyn for 10 days, lase dose 06/18 - bcx neg. Adjustment and management of vascular access dev ice 04/22/2018 04/25/2018 Last Assessment & Plan: Notified by bedside RN on 04/21 of lack of blood return on mediport despite rosenberg needle exchange IR VIC notified on 04/21 with recommendation of cathflo before injection study/device exchange -blood return present after cathflo administration, now resolved High triglycerides 04/17/2018 04/25/2018 Last Assessment & Plan: Monitoring TG for propofol infusion syndrome, elevated at 287. No lactic acidosis or brachycardia at this time. PLAN: - no longer requiring propofol - Triglyceride level 124 Hypokalemia 04/15/2018 04/17/2018 Last Assessment & Plan: Hypokalemia and hyponatremia K 2.7, Na 132 Etiology: likely related to diuresis - K goal >4 - monitor for nausea, prefer IV repletion of K - change KVO to 0.9%NS Emesis 04/14/2018 04/17/2018 Last Assessment & Plan: Emesis x3 with 350 cc residual overnight KUB 04/13: no ileus or distenstion - trickle feeds, check residual this morning and increase back to goal rate - finishing reglan 10mg [id number] for 24 hours today - monitor ostomy output Leukocytosis 04/14/2018 04/17/2018 Last Assessment & Plan: WBC increasing 10-->12-->14, now 9 CRP uptrending 7--> 22-->24, now 21 WSR 102 Bronched 04/13 Routine analysis: WBC 870, RBC 32 - Added on resp culture and stain to sample from 04/13, cautious with interpretation as specimen cup has been opened in lab, may not be sterile. Showing GNB, pseudomonas - Trend CRP and CBC today per NSGY - monitor pump insertion point - CXR daily x3 days - vancomycin, cefepime for 7 days stop: 04/21 Tachycardia 04/14/2018 04/17/2018 Last Assessment & Plan: Continue propranolol to 20mg TID Hold if SBP <100 HR <65 or MAP <65 Delirium 04/14/2018 06/01/2018 Last Assessment & Plan: Plan: - delirium prevention protocol - optimize day/night cycle - reorientation as needed Mucus plugging of bronchi 04/13/20182018 Last Assessment & Plan: S/p bronch on 04/13/18 BAL anlysis: WBC 870, 32 RBC Culture growing pseudomonas aeruginosa Plan: - Refer to respiratory failure Laryngeal edema 04/09/2018 04/19/2018 Last Assessment & Plan: Assessment: Re-intubated for stridor 04/07, given 24h of dexamethasone 4mg Q6h + cuff leak on 04/18 Plan -Monitor for cuff leak Aspiration pneumonia 04/05/2018 04/08/2018 Last Assessment & Plan: Patient had respiratory distress episode prior to admission for baclofen pump revision. Concern for possible aspiration pneumonia PLAN: -ID following, appreciate recs -Continue Zoysn for a total of 7 days C. difficile colitis 12/13/2012 06/29/2018 Overview: Patient was found to be C. Diff positive on 12/12 KUB showed dilated loop of bowel to 9.5cm Plan -patient currently on IV flagyl and vanc via G tube -TF slow Sepsis 12/12/2012 12/17/2012 Overview: Likely due to aspiration pneumonia Plan: -continue levaquin (start date 12/12) -follow cultures -aspiration precautions -patient does not take PO at baseline -monitor BP Acute respiratory failure with hypoxia 3 12/17/2012 Overview: - due to aspiration - s/p intubation Plan: - wean as tolerated -HOB elevated to 30-45 degrees -Levaquin as below -monitor O2 sats and wean O2 as tolerated Hypoxia 03/10/2012 03/11/2012 Overview: March 11, 2012--> transient decline in O2 sat today and this resolved with an increase in O2 via Nasal cannula. suspect that this was due to sputum plgging up airway, and this has resolved. I spoke directly to his Mother, and she informed me that his breathing with heavy secretions and drooling is part of his overall baseline clinical status. Acute drug withdrawal syndrome with complication 03/10/2012 06/09/2018 Last Assessment & Plan: Baclofen withdrawal resulting in tachycardia and increased spasticity, now s/p ITBP replacement Plan: - Refer to status post insertion of intrathecal pump Constipation 03/10/2012 03/11/2012 Overview: March 10, 2012--> augmenting bowel regimen March 11, 2012--> improved with increasing bowel reimen Hypernatremia 04/26/2011 03/09/2012 Overview: Tolerating PEG feeds since restart Increased TF FW flushes to 100 ml Q4H and repleted with 1L D5-1/2NS IV today Stable, will continue to monitor Renal failure, acute 04/13/2011 03/09/2012 Overview: -Cr baseline 0.8 -elevation to 4.4 with 20mL urine/24 hours on 04/13 -nephrology consulted, AIN + ATN picture -random vanc level 159 04/13, vanc stopped, pharmacy consulted for dosing -Diana placed - CVVHD for around 2 days with vanc level dropping to 30s, transitioned to IHD -last IHD was on 04/17. UOP improving. Vanco restarted. Pulled Diana 04/21. -clearing good solutes, Cr improving, and no issues with volume overload -SCr stabilizing around 1 at time of discharge Aspiration of gastric contents 04/13/2011 0 03/09/2012 Overview: CT 04/12 with multiple changes consistent with aspiration - clinical picture consistent with aspiration PNA vs aspiration pneumonitis - s/p treatment with meropenem/pip-tazo, vanc, cipro - also got ertapenem at OSH - also got tobramycin x 1 dose - Advised to keep patient NPO and have swallowing re-evaluated in 2-3 weeks after discharge Upper GI bleed 04/11/2011 03/09/2012 Overview: 04/09 with coffee ground emesis noted. Hemodynamically stable 04/14 ~700 ml of coffee ground emesis with Hb drop to 6.6. He received 3U PRBC. hb was stable before RNF transfer. Continue protonix IV PEG on suction Monitor vital signs, monitor for aspiration 04/19: EGD Grade C esophagitis. No further episodes. 3/: Hgb drifting down to 6.9, tolerated 1u PRBC with appropriate rise in Hgb No signs of continued bleeding Pancreatitis 04/07/2011 03/09/2012 Overview: -Patient vomiting, amylase 2900, lipase 9000 on 04/07 -Etiology unclear at this point: gallstones vs ertapenem ?gallstones: RUQ US no stones, but likely passed stone -Treated conservatively, now resolved Dilatation of colon 04/07/2011 03/09/2012 Overview: KUB with right colonic dilation without evidence of SBO - Initially had watery diarrhea, FMS in place 04/20 - CT Abd/Pel 04/13: likely adynamic ileus, no obstruction. - discontinued trihexyphenidyl (anticholinergic) 04/21 - discontinue Reglan and started erythromycin for bowel motility, rectal tube placed - started simethicone for bowel gas and dilated colon - continue to monitor clinical status and serial KUBs - improving based on KUB of 04/25 - restarted home bowel regimen, + BM after FMS removed Transaminitis 04/06/2011 03/09/2012 Overview: Presented with elevated LFTs 04/06 at time of pancreatitis -likely 2/2 choledocholithiasis given trend, time course, a/w pancreatitis -LFTs trending down Septic shock(785.52) 04/03/2011 03/09/2012 Overview: -Presented to OSH with SBP in 60's, fever to 104. Likely pulmonic source with air bronchograms on CT abdomen. Initial measures -- 4L NS, levofloxacin 750 mg x1, fluconazole 400 mg IV x1, & ertepenem 1g IV x1-- at OSH. Lactate at OSH of 5.9, normalized by time of transfer to 0.4. Off pressors since initial admission. -Course complicated by pancreatitis and Vanc and pip/tazo was switched to azithromycin for atypical coverage given PNA + pancreatitis, however legionella and mycoplasma negative -RNF, concern for aspiration (febrile, tachy, emesis), vanc/zosyn restarted 04/08, given tobra x 1 04/12, and zosyn switched to sharon 04/12 for fevers through antibiotics. -anuric renal failure 2/ ATN with toxic vanc levels , vanc held, APARNA -required intubation again due to desaturation, transferred back to MICU 04/18 -repeat infectious work up, CXR, echo, cultures negative. Rt diana removed and left IJ placed 04/19 for line related infection concerns. -Vanco, meropenem discontinued 04/26; cipro discontinued 04/22. -Remains afebrile off antibiotics. Acute respiratory failure 04/03/20112012 Overview: - due to aspiration - s/p intubation Plan: - wean as tolerated -HOB elevated to 30-45 degrees - iv antibiotics for aspiration pneumonia - monitor O2 sats and wean O2 as tolerated SUMMARY 04/03/2011 04/11/2011 documented as of this encounter (statuses as of 04/14/2022) [facility]05-24-2019 History of Past illness Narrative* Problem Noted Date Resolved Date Malfunction of jejunostomy tube 07/15/2018 07/17/2018 ARDS (adult respiratory distress syndrome) 06/0906/09/2018 Discharge planning issues 05/20/20182018 Last Assessment & Plan: Appreciate social work and CM working towards families goal of having patient at home at discharge. Currently SW having difficulty finding home care agencies to accommodate patient needs. Family currently undergoing ventilator training, will go home when able (Plan for , 06/02) Hypotension 04/25/2018 05/21/2018 Last Assessment & Plan: 05/19: hypotensive 77/40, arterial line placed. 1L LRB, 2 u PRBC Etiology unclear: concern for possible slow bleed related to PEGJ exchange however no bleeding at insertion site and no blood with irrigation vs hypovolemia (on daily lasix) vs med induced with increased ITBP- however the latter does not explain HGB drop. - Barton removed - BP stable - MAP goal >60 - monitor CBC Sepsis 04/23/2018 01/30/2021 Overview: Now with fevers since 06/04/2018-- normal WBC. CXR reviewed without new focal infiltrates. has chronic bilateral opacification that is also noted from CT chest 03/2018. trach cx with low colony counts of pseudomonas, proteus and normal resp ashlee Per ID note, Given the lack of purulent secretions and low colony counts from culture with no new acute process on CXR, I currently have a low suspicion for pneumonia as source of fevers consider other sources such as UTI or port related bacteremia CT abdomen/pelvis 06/09 showed RESIDUAL FLUID-FILLED POCKET, WITHOUT INTERNAL GAS. However, clinically doesn't look infected. Last Assessment & Plan: - resolved. S/p zosyn for 10 days, lase dose 06/18 - bcx neg. Adjustment and management of vascular access dev ice 04/22/2018 04/25/2018 Last Assessment & Plan: Notified by bedside RN on 04/21 of lack of blood return on mediport despite rosenberg needle exchange IR VIC notified on 04/21 with recommendation of cathflo before injection study/device exchange -blood return present after cathflo administration, now resolved High triglycerides 04/17/2018 04/25/2018 Last Assessment & Plan: Monitoring TG for propofol infusion syndrome, elevated at 287. No lactic acidosis or brachycardia at this time. PLAN: - no longer requiring propofol - Triglyceride level 124 Hypokalemia 04/15/2018 04/17/2018 Last Assessment & Plan: Hypokalemia and hyponatremia K 2.7, Na 132 Etiology: likely related to diuresis - K goal >4 - monitor for nausea, prefer IV repletion of K - change KVO to 0.9%NS Emesis 04/14/2018 04/17/2018 Last Assessment & Plan: Emesis x3 with 350 cc residual overnight KUB 04/13: no ileus or distenstion - trickle feeds, check residual this morning and increase back to goal rate - finishing reglan 10mg [id number] for 24 hours today - monitor ostomy output Leukocytosis 04/14/2018 04/17/2018 Last Assessment & Plan: WBC increasing 10-->12-->14, now 9 CRP uptrending 7--> 22-->24, now 21 WSR 102 Bronched 04/13 Routine analysis: WBC 870, RBC 32 - Added on resp culture and stain to sample from 04/13, cautious with interpretation as specimen cup has been opened in lab, may not be sterile. Showing GNB, pseudomonas - Trend CRP and CBC today per NSGY - monitor pump insertion point - CXR daily x3 days - vancomycin, cefepime for 7 days stop: 04/21 Tachycardia 04/14/2018 04/17/2018 Last Assessment & Plan: Continue propranolol to 20mg TID Hold if SBP <100 HR <65 or MAP <65 Delirium 04/14/2018 06/01/2018 Last Assessment & Plan: Plan: - delirium prevention protocol - optimize day/night cycle - reorientation as needed Mucus plugging of bronchi 04/13/20182018 Last Assessment & Plan: S/p bronch on 04/13/18 BAL anlysis: WBC 870, 32 RBC Culture growing pseudomonas aeruginosa Plan: - Refer to respiratory failure Laryngeal edema 04/09/2018 04/19/2018 Last Assessment & Plan: Assessment: Re-intubated for stridor 04/07, given 24h of dexamethasone 4mg Q6h + cuff leak on 04/18 Plan -Monitor for cuff leak Aspiration pneumonia 04/05/2018 04/08/2018 Last Assessment & Plan: Patient had respiratory distress episode prior to admission for baclofen pump revision. Concern for possible aspiration pneumonia PLAN: -ID following, appreciate recs -Continue Zoysn for a total of 7 days C. difficile colitis 12/13/2012 06/29/2018 Overview: Patient was found to be C. Diff positive on 12/12 KUB showed dilated loop of bowel to 9.5cm Plan -patient currently on IV flagyl and vanc via G tube -TF slow Sepsis 12/12/2012 12/17/2012 Overview: Likely due to aspiration pneumonia Plan: -continue levaquin (start date 12/12) -follow cultures -aspiration precautions -patient does not take PO at baseline -monitor BP Acute respiratory failure with hypoxia 3 12/17/2012 Overview: - due to aspiration - s/p intubation Plan: - wean as tolerated -HOB elevated to 30-45 degrees -Levaquin as below -monitor O2 sats and wean O2 as tolerated Hypoxia 03/10/2012 03/11/2012 Overview: March 11, 2012--> transient decline in O2 sat today and this resolved with an increase in O2 via Nasal cannula. suspect that this was due to sputum plgging up airway, and this has resolved. I spoke directly to his Mother, and she informed me that his breathing with heavy secretions and drooling is part of his overall baseline clinical status. Acute drug withdrawal syndrome with complication 03/10/2012 06/09/2018 Last Assessment & Plan: Baclofen withdrawal resulting in tachycardia and increased spasticity, now s/p ITBP replacement Plan: - Refer to status post insertion of intrathecal pump Constipation 03/10/2012 03/11/2012 Overview: March 10, 2012--> augmenting bowel regimen March 11, 2012--> improved with increasing bowel reimen Hypernatremia 04/26/2011 03/09/2012 Overview: Tolerating PEG feeds since restart Increased TF FW flushes to 100 ml Q4H and repleted with 1L D5-1/2NS IV today Stable, will continue to monitor Renal failure, acute 04/13/2011 03/09/2012 Overview: -Cr baseline 0.8 -elevation to 4.4 with 20mL urine/24 hours on 04/13 -nephrology consulted, AIN + ATN picture -random vanc level 159 04/13, vanc stopped, pharmacy consulted for dosing -Diana placed - CVVHD for around 2 days with vanc level dropping to 30s, transitioned to IHD -last IHD was on 04/17. UOP improving. Vanco restarted. Pulled Diana 04/21. -clearing good solutes, Cr improving, and no issues with volume overload -SCr stabilizing around 1 at time of discharge Aspiration of gastric contents 04/13/2011 0 03/09/2012 Overview: CT 04/12 with multiple changes consistent with aspiration - clinical picture consistent with aspiration PNA vs aspiration pneumonitis - s/p treatment with meropenem/pip-tazo, vanc, cipro - also got ertapenem at OSH - also got tobramycin x 1 dose - Advised to keep patient NPO and have swallowing re-evaluated in 2-3 weeks after discharge Upper GI bleed 04/11/2011 03/09/2012 Overview: 04/09 with coffee ground emesis noted. Hemodynamically stable 04/14 ~700 ml of coffee ground emesis with Hb drop to 6.6. He received 3U PRBC. hb was stable before RNF transfer. Continue protonix IV PEG on suction Monitor vital signs, monitor for aspiration 04/19: EGD Grade C esophagitis. No further episodes. 3/: Hgb drifting down to 6.9, tolerated 1u PRBC with appropriate rise in Hgb No signs of continued bleeding Pancreatitis 04/07/2011 03/09/2012 Overview: -Patient vomiting, amylase 2900, lipase 9000 on 04/07 -Etiology unclear at this point: gallstones vs ertapenem ?gallstones: RUQ US no stones, but likely passed stone -Treated conservatively, now resolved Dilatation of colon 04/07/2011 03/09/2012 Overview: KUB with right colonic dilation without evidence of SBO - Initially had watery diarrhea, FMS in place 04/20 - CT Abd/Pel 04/13: likely adynamic ileus, no obstruction. - discontinued trihexyphenidyl (anticholinergic) 04/21 - discontinue Reglan and started erythromycin for bowel motility, rectal tube placed - started simethicone for bowel gas and dilated colon - continue to monitor clinical status and serial KUBs - improving based on KUB of 04/25 - restarted home bowel regimen, + BM after FMS removed Transaminitis 04/06/2011 03/09/2012 Overview: Presented with elevated LFTs 04/06 at time of pancreatitis -likely 2/2 choledocholithiasis given trend, time course, a/w pancreatitis -LFTs trending down Septic shock(785.52) 04/03/2011 03/09/2012 Overview: -Presented to OSH with SBP in 60's, fever to 104. Likely pulmonic source with air bronchograms on CT abdomen. Initial measures -- 4L NS, levofloxacin 750 mg x1, fluconazole 400 mg IV x1, & ertepenem 1g IV x1-- at OSH. Lactate at OSH of 5.9, normalized by time of transfer to 0.4. Off pressors since initial admission. -Course complicated by pancreatitis and Vanc and pip/tazo was switched to azithromycin for atypical coverage given PNA + pancreatitis, however legionella and mycoplasma negative -RNF, concern for aspiration (febrile, tachy, emesis), vanc/zosyn restarted 04/08, given tobra x 1 04/12, and zosyn switched to sharon 04/12 for fevers through antibiotics. -anuric renal failure 03/26 ATN with toxic vanc levels , vanc held, APARNA -required intubation again due to desaturation, transferred back to MICU 04/18 -repeat infectious work up, CXR, echo, cultures negative. Rt diana removed and left IJ placed 04/19 for line related infection concerns. -Vanco, meropenem discontinued 04/26; cipro discontinued 04/22. -Remains afebrile off antibiotics. Acute respiratory failure 04/03/20112012 Overview: - due to aspiration - s/p intubation Plan: - wean as tolerated -HOB elevated to 30-45 degrees - iv antibiotics for aspiration pneumonia - monitor O2 sats and wean O2 as tolerated SUMMARY 04/03/2011 04/11/2011 documented as of this encounter (statuses as of 05/08/2022) [facility]-24-2019 History of Past illness Narrative* Problem Noted Date Resolved Date Malfunction of jejunostomy tube 07/15/2018 07/17/2018 ARDS (adult respiratory distress syndrome) 06/0906/09/2018 Discharge planning issues 05/20/20182018 Last Assessment & Plan: Appreciate social work and CM working towards families goal of having patient at home at discharge. Currently SW having difficulty finding home care agencies to accommodate patient needs. Family currently undergoing ventilator training, will go home when able (Plan for , 06/02) Hypotension 04/25/2018 05/21/2018 Last Assessment & Plan: 05/19: hypotensive 77/40, arterial line placed. 1L LRB, 2 u PRBC Etiology unclear: concern for possible slow bleed related to PEGJ exchange however no bleeding at insertion site and no blood with irrigation vs hypovolemia (on daily lasix) vs med induced with increased ITBP- however the latter does not explain HGB drop. - Ellen removed - BP stable - MAP goal >60 - monitor CBC Sepsis 04/23/2018 01/30/2021 Overview: Now with fevers since 06/04/2018-- normal WBC. CXR reviewed without new focal infiltrates. has chronic bilateral opacification that is also noted from CT chest 03/2018. trach cx with low colony counts of pseudomonas, proteus and normal resp ashlee Per ID note, Given the lack of purulent secretions and low colony counts from culture with no new acute process on CXR, I currently have a low suspicion for pneumonia as source of fevers consider other sources such as UTI or port related bacteremia CT abdomen/pelvis 06/09 showed RESIDUAL FLUID-FILLED POCKET, WITHOUT INTERNAL GAS. However, clinically doesn't look infected. Last Assessment & Plan: - resolved. S/p zosyn for 10 days, lase dose 06/18 - bcx neg. Adjustment and management of vascular access dev ice 04/22/2018 04/25/2018 Last Assessment & Plan: Notified by bedside RN on 04/21 of lack of blood return on mediport despite rosenberg needle exchange IR [facility] notified on 04/21 with recommendation of cathflo before injection study/device exchange -blood return present after cathflo administration, now resolved High triglycerides 04/17/2018 04/25/2018 Last Assessment & Plan: Monitoring TG for propofol infusion syndrome, elevated at 287. No lactic acidosis or brachycardia at this time. PLAN: - no longer requiring propofol - Triglyceride level 124 Hypokalemia 04/15/2018 04/17/2018 Last Assessment & Plan: Hypokalemia and hyponatremia K 2.7, Na 132 Etiology: likely related to diuresis - K goal >4 - monitor for nausea, prefer IV repletion of K - change KVO to 0.9%NS Emesis 04/14/2018 04/17/2018 Last Assessment & Plan: Emesis x3 with 350 cc residual overnight KUB 04/13: no ileus or distenstion - trickle feeds, check residual this morning and increase back to goal rate - finishing reglan 10mg [id number] for 24 hours today - monitor ostomy output Leukocytosis 04/14/2018 04/17/2018 Last Assessment & Plan: WBC increasing 10-->12-->14, now 9 CRP uptrending 7--> 22-->24, now 21 WSR 102 Bronched 04/13 Routine analysis: WBC 870, RBC 32 - Added on resp culture and stain to sample from 04/13, cautious with interpretation as specimen cup has been opened in lab, may not be sterile. Showing GNB, pseudomonas - Trend CRP and CBC today per NSGY - monitor pump insertion point - CXR daily x3 days - vancomycin, cefepime for 7 days stop: 04/21 Tachycardia 04/14/2018 04/17/2018 Last Assessment & Plan: Continue propranolol to 20mg TID Hold if SBP <100 HR <65 or MAP <65 Delirium 04/14/2018 06/01/2018 Last Assessment & Plan: Plan: - delirium prevention protocol - optimize day/night cycle - reorientation as needed Mucus plugging of bronchi 04/13/20182018 Last Assessment & Plan: S/p bronch on 04/13/18 BAL anlysis: WBC 870, 32 RBC Culture growing pseudomonas aeruginosa Plan: - Refer to respiratory failure Laryngeal edema 04/09/2018 04/19/2018 Last Assessment & Plan: Assessment: Re-intubated for stridor 04/07, given 24h of dexamethasone 4mg Q6h + cuff leak on 04/18 Plan -Monitor for cuff leak Aspiration pneumonia 04/05/2018 04/08/2018 Last Assessment & Plan: Patient had respiratory distress episode prior to admission for baclofen pump revision. Concern for possible aspiration pneumonia PLAN: -ID following, appreciate recs -Continue Zoysn for a total of 7 days C. difficile colitis 12/13/2012 06/29/2018 Overview: Patient was found to be C. Diff positive on 12/12 KUB showed dilated loop of bowel to 9.5cm Plan -patient currently on IV flagyl and vanc via G tube -TF slow Sepsis 12/12/2012 12/17/2012 Overview: Likely due to aspiration pneumonia Plan: -continue levaquin (start date 12/12) -follow cultures -aspiration precautions -patient does not take PO at baseline -monitor BP Acute respiratory failure with hypoxia 3 12/17/2012 Overview: - due to aspiration - s/p intubation Plan: - wean as tolerated -HOB elevated to 30-45 degrees -Levaquin as below -monitor O2 sats and wean O2 as tolerated Hypoxia 03/10/2012 03/11/2012 Overview: March 11, 2012--> transient decline in O2 sat today and this resolved with an increase in O2 via Nasal cannula. suspect that this was due to sputum plgging up airway, and this has resolved. I spoke directly to his Mother, and she informed me that his breathing with heavy secretions and drooling is part of his overall baseline clinical status. Acute drug withdrawal syndrome with complication 03/10/2012 06/09/2018 Last Assessment & Plan: Baclofen withdrawal resulting in tachycardia and increased spasticity, now s/p ITBP replacement Plan: - Refer to status post insertion of intrathecal pump Constipation 03/10/2012 03/11/2012 Overview: March 10, 2012--> augmenting bowel regimen March 11, 2012--> improved with increasing bowel reimen Hypernatremia 04/26/2011 03/09/2012 Overview: Tolerating PEG feeds since restart Increased TF FW flushes to 100 ml Q4H and repleted with 1L D5-1/2NS IV today Stable, will continue to monitor Renal failure, acute 04/13/2011 03/09/2012 Overview: -Cr baseline 0.8 -elevation to 4.4 with 20mL urine/24 hours on 04/13 -nephrology consulted, AIN + ATN picture -random vanc level 159 04/13, vanc stopped, pharmacy consulted for dosing -Diana placed - CVVHD for around 2 days with vanc level dropping to 30s, transitioned to IHD -last IHD was on 04/17. UOP improving. Vanco restarted. Pulled Diana 04/21. -clearing good solutes, Cr improving, and no issues with volume overload -SCr stabilizing around 1 at time of discharge Aspiration of gastric contents 04/13/2011 0 03/09/2012 Overview: CT 04/12 with multiple changes consistent with aspiration - clinical picture consistent with aspiration PNA vs aspiration pneumonitis - s/p treatment with meropenem/pip-tazo, vanc, cipro - also got ertapenem at OSH - also got tobramycin x 1 dose - Advised to keep patient NPO and have swallowing re-evaluated in 2-3 weeks after discharge Upper GI bleed 04/11/2011 03/09/2012 Overview: 04/09 with coffee ground emesis noted. Hemodynamically stable 04/14 ~700 ml of coffee ground emesis with Hb drop to 6.6. He received 3U PRBC. hb was stable before RNF transfer. Continue protonix IV PEG on suction Monitor vital signs, monitor for aspiration 04/19: EGD Grade C esophagitis. No further episodes. 04/25: Hgb drifting down to 6.9, tolerated 1u PRBC with appropriate rise in Hgb No signs of continued bleeding Pancreatitis 04/07/2011 03/09/2012 Overview: -Patient vomiting, amylase 2900, lipase 9000 on 04/07 -Etiology unclear at this point: gallstones vs ertapenem ?gallstones: RUQ US no stones, but likely passed stone -Treated conservatively, now resolved Dilatation of colon 04/07/2011 03/09/2012 Overview: KUB with right colonic dilation without evidence of SBO - Initially had watery diarrhea, FMS in place 04/20 - CT Abd/Pel 04/13: likely adynamic ileus, no obstruction. - discontinued trihexyphenidyl (anticholinergic) 04/21 - discontinue Reglan and started erythromycin for bowel motility, rectal tube placed - started simethicone for bowel gas and dilated colon - continue to monitor clinical status and serial KUBs - improving based on KUB of 04/25 - restarted home bowel regimen, + BM after FMS removed Transaminitis 04/06/2011 03/09/2012 Overview: Presented with elevated LFTs 04/06 at time of pancreatitis -likely 2/2 choledocholithiasis given trend, time course, a/w pancreatitis -LFTs trending down Septic shock(785.52) 04/03/2011 03/09/2012 Overview: -Presented to OSH with SBP in 60's, fever to 104. Likely pulmonic source with air bronchograms on CT abdomen. Initial measures -- 4L NS, levofloxacin 750 mg x1, fluconazole 400 mg IV x1, & ertepenem 1g IV x1-- at OSH. Lactate at OSH of 5.9, normalized by time of transfer to 0.4. Off pressors since initial admission. -Course complicated by pancreatitis and Vanc and pip/tazo was switched to azithromycin for atypical coverage given PNA + pancreatitis, however legionella and mycoplasma negative -RNF, concern for aspiration (febrile, tachy, emesis), vanc/zosyn restarted 04/08, given tobra x 1 04/12, and zosyn switched to sharon 04/12 for fevers through antibiotics. -anuric renal failure / ATN with toxic vanc levels , vanc held, APARNA -required intubation again due to desaturation, transferred back to MICU 04/18 -repeat infectious work up, CXR, echo, cultures negative. Rt diana removed and left IJ placed 04/19 for line related infection concerns. -Vanco, meropenem discontinued 04/26; cipro discontinued 04/22. -Remains afebrile off antibiotics. Acute respiratory failure 04/03/20112012 Overview: - due to aspiration - s/p intubation Plan: - wean as tolerated -HOB elevated to 30-45 degrees - iv antibiotics for aspiration pneumonia - monitor O2 sats and wean O2 as tolerated SUMMARY 04/03/2011 04/11/2011 documented as of this encounter (statuses as of 06/16/2022) [facility]05-24-2019 History of Past illness Narrative* Problem Noted Date Resolved Date Malfunction of jejunostomy tube 07/15/2018 07/17/2018 ARDS (adult respiratory distress syndrome) 06/0906/09/2018 Discharge planning issues 05/20/20182018 Last Assessment & Plan: Appreciate social work and CM working towards families goal of having patient at home at discharge. Currently SW having difficulty finding home care agencies to accommodate patient needs. Family currently undergoing ventilator training, will go home when able (Plan for , 06/02) Hypotension 04/25/2018 05/21/2018 Last Assessment & Plan: 05/19: hypotensive 77/40, arterial line placed. 1L LRB, 2 u PRBC Etiology unclear: concern for possible slow bleed related to PEGJ exchange however no bleeding at insertion site and no blood with irrigation vs hypovolemia (on daily lasix) vs med induced with increased ITBP- however the latter does not explain HGB drop. - Ellen removed - BP stable - MAP goal >60 - monitor CBC Sepsis 04/23/2018 01/30/2021 Overview: Now with fevers since 06/04/2018-- normal WBC. CXR reviewed without new focal infiltrates. has chronic bilateral opacification that is also noted from CT chest 03/2018. trach cx with low colony counts of pseudomonas, proteus and normal resp ashlee Per ID note, Given the lack of purulent secretions and low colony counts from culture with no new acute process on CXR, I currently have a low suspicion for pneumonia as source of fevers consider other sources such as UTI or port related bacteremia CT abdomen/pelvis 06/09 showed RESIDUAL FLUID-FILLED POCKET, WITHOUT INTERNAL GAS. However, clinically doesn't look infected. Last Assessment & Plan: - resolved. S/p zosyn for 10 days, lase dose 06/18 - bcx neg. Adjustment and management of vascular access dev ice 04/22/2018 04/25/2018 Last Assessment & Plan: Notified by bedside RN on 04/21 of lack of blood return on mediport despite rosenberg needle exchange IR VIC notified on 04/21 with recommendation of cathflo before injection study/device exchange -blood return present after cathflo administration, now resolved High triglycerides 04/17/2018 04/25/2018 Last Assessment & Plan: Monitoring TG for propofol infusion syndrome, elevated at 287. No lactic acidosis or brachycardia at this time. PLAN: - no longer requiring propofol - Triglyceride level 124 Hypokalemia 04/15/2018 04/17/2018 Last Assessment & Plan: Hypokalemia and hyponatremia K 2.7, Na 132 Etiology: likely related to diuresis - K goal >4 - monitor for nausea, prefer IV repletion of K - change KVO to 0.9%NS Emesis 04/14/2018 04/17/2018 Last Assessment & Plan: Emesis x3 with 350 cc residual overnight KUB 04/13: no ileus or distenstion - trickle feeds, check residual this morning and increase back to goal rate - finishing reglan 10mg [id number] for 24 hours today - monitor ostomy output Leukocytosis 04/14/2018 04/17/2018 Last Assessment & Plan: WBC increasing 10-->12-->14, now 9 CRP uptrending 7--> 22-->24, now 21 WSR 102 Bronched 04/13 Routine analysis: WBC 870, RBC 32 - Added on resp culture and stain to sample from 04/13, cautious with interpretation as specimen cup has been opened in lab, may not be sterile. Showing GNB, pseudomonas - Trend CRP and CBC today per NSGY - monitor pump insertion point - CXR daily x3 days - vancomycin, cefepime for 7 days stop: 04/21 Tachycardia 04/14/2018 04/17/2018 Last Assessment & Plan: Continue propranolol to 20mg TID Hold if SBP <100 HR <65 or MAP <65 Delirium 04/14/2018 06/01/2018 Last Assessment & Plan: Plan: - delirium prevention protocol - optimize day/night cycle - reorientation as needed Mucus plugging of bronchi 04/13/20182018 Last Assessment & Plan: S/p bronch on 04/13/18 BAL anlysis: WBC 870, 32 RBC Culture growing pseudomonas aeruginosa Plan: - Refer to respiratory failure Laryngeal edema 04/09/2018 04/19/2018 Last Assessment & Plan: Assessment: Re-intubated for stridor 04/07, given 24h of dexamethasone 4mg Q6h + cuff leak on 04/18 Plan -Monitor for cuff leak Aspiration pneumonia 04/05/2018 04/08/2018 Last Assessment & Plan: Patient had respiratory distress episode prior to admission for baclofen pump revision. Concern for possible aspiration pneumonia PLAN: -ID following, appreciate recs -Continue Zoysn for a total of 7 days C. difficile colitis 12/13/2012 06/29/2018 Overview: Patient was found to be C. Diff positive on 12/12 KUB showed dilated loop of bowel to 9.5cm Plan -patient currently on IV flagyl and vanc via G tube -TF slow Sepsis 12/12/2012 12/17/2012 Overview: Likely due to aspiration pneumonia Plan: -continue levaquin (start date 12/12) -follow cultures -aspiration precautions -patient does not take PO at baseline -monitor BP Acute respiratory failure with hypoxia 3 12/17/2012 Overview: - due to aspiration - s/p intubation Plan: - wean as tolerated -HOB elevated to 30-45 degrees -Levaquin as below -monitor O2 sats and wean O2 as tolerated Hypoxia 03/10/2012 03/11/2012 Overview: March 11, 2012--> transient decline in O2 sat today and this resolved with an increase in O2 via Nasal cannula. suspect that this was due to sputum plgging up airway, and this has resolved. I spoke directly to his Mother, and she informed me that his breathing with heavy secretions and drooling is part of his overall baseline clinical status. Acute drug withdrawal syndrome with complication 03/10/2012 06/09/2018 Last Assessment & Plan: Baclofen withdrawal resulting in tachycardia and increased spasticity, now s/p ITBP replacement Plan: - Refer to status post insertion of intrathecal pump Constipation 03/10/2012 03/11/2012 Overview: March 10, 2012--> augmenting bowel regimen March 11, 2012--> improved with increasing bowel reimen Hypernatremia 04/26/2011 03/09/2012 Overview: Tolerating PEG feeds since restart Increased TF FW flushes to 100 ml Q4H and repleted with 1L D5-1/2NS IV today Stable, will continue to monitor Renal failure, acute 04/13/2011 03/09/2012 Overview: -Cr baseline 0.8 -elevation to 4.4 with 20mL urine/24 hours on 04/13 -nephrology consulted, AIN + ATN picture -random vanc level 159 04/13, vanc stopped, pharmacy consulted for dosing -Diana placed - CVVHD for around 2 days with vanc level dropping to 30s, transitioned to IHD -last IHD was on 04/17. UOP improving. Vanco restarted. Pulled Diana 04/21. -clearing good solutes, Cr improving, and no issues with volume overload -SCr stabilizing around 1 at time of discharge Aspiration of gastric contents 04/13/2011 0 03/09/2012 Overview: CT 04/12 with multiple changes consistent with aspiration - clinical picture consistent with aspiration PNA vs aspiration pneumonitis - s/p treatment with meropenem/pip-tazo, vanc, cipro - also got ertapenem at OSH - also got tobramycin x 1 dose - Advised to keep patient NPO and have swallowing re-evaluated in 2-3 weeks after discharge Upper GI bleed 04/11/2011 03/09/2012 Overview: 04/09 with coffee ground emesis noted. Hemodynamically stable 04/14 ~700 ml of coffee ground emesis with Hb drop to 6.6. He received 3U PRBC. hb was stable before RNF transfer. Continue protonix IV PEG on suction Monitor vital signs, monitor for aspiration 04/19: EGD Grade C esophagitis. No further episodes. 3/: Hgb drifting down to 6.9, tolerated 1u PRBC with appropriate rise in Hgb No signs of continued bleeding Pancreatitis 04/07/2011 03/09/2012 Overview: -Patient vomiting, amylase 2900, lipase 9000 on 04/07 -Etiology unclear at this point: gallstones vs ertapenem ?gallstones: RUQ US no stones, but likely passed stone -Treated conservatively, now resolved Dilatation of colon 04/07/2011 03/09/2012 Overview: KUB with right colonic dilation without evidence of SBO - Initially had watery diarrhea, FMS in place 04/20 - CT Abd/Pel 04/13: likely adynamic ileus, no obstruction. - discontinued trihexyphenidyl (anticholinergic) 04/21 - discontinue Reglan and started erythromycin for bowel motility, rectal tube placed - started simethicone for bowel gas and dilated colon - continue to monitor clinical status and serial KUBs - improving based on KUB of 04/25 - restarted home bowel regimen, + BM after FMS removed Transaminitis 04/06/2011 03/09/2012 Overview: Presented with elevated LFTs 04/06 at time of pancreatitis -likely 2/2 choledocholithiasis given trend, time course, a/w pancreatitis -LFTs trending down Septic shock(785.52) 04/03/2011 03/09/2012 Overview: -Presented to OSH with SBP in 60's, fever to 104. Likely pulmonic source with air bronchograms on CT abdomen. Initial measures -- 4L NS, levofloxacin 750 mg x1, fluconazole 400 mg IV x1, & ertepenem 1g IV x1-- at OSH. Lactate at OSH of 5.9, normalized by time of transfer to 0.4. Off pressors since initial admission. -Course complicated by pancreatitis and Vanc and pip/tazo was switched to azithromycin for atypical coverage given PNA + pancreatitis, however legionella and mycoplasma negative -RNF, concern for aspiration (febrile, tachy, emesis), vanc/zosyn restarted 04/08, given tobra x 1 04/12, and zosyn switched to sharon 04/12 for fevers through antibiotics. -anuric renal failure / ATN with toxic vanc levels , vanc held, APARNA -required intubation again due to desaturation, transferred back to MICU 04/18 -repeat infectious work up, CXR, echo, cultures negative. Rt diana removed and left IJ placed 04/19 for line related infection concerns. -Vanco, meropenem discontinued 04/26; cipro discontinued 04/22. -Remains afebrile off antibiotics. Acute respiratory failure 04/03/20112012 Overview: - due to aspiration - s/p intubation Plan: - wean as tolerated -HOB elevated to 30-45 degrees - iv antibiotics for aspiration pneumonia - monitor O2 sats and wean O2 as tolerated SUMMARY 04/03/2011 04/11/2011 documented as of this encounter (statuses as of 07/01/2022) [facility] Functional disorder of stomach- Primary Unspecified functional disorder of stomach documented in this encounter [facility] Diagnosis 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 Attention to colostomy documented in this encounter [facility] Advance Directives No Advanced Directives Records FoundLatest Code Status on File Code Status Date Activated Date Inactivated Comments Full Code 07/15/2018 5:17 AM 07/17/2018 7:13 PM Full Code Order Discussed With: Surrogate Decisi on Maker Full Code 04/01/2018 1:39 PM 06/29/2018 3:36 PM Full Code Order Discussed With: Surrogate Decisi on Maker Surrogate Decision Maker Relationship: Parents Summary Purpose Family History No Family History Records Found Additional Source Comments Source Comments (unrecognize d section and content) In the event this informatio n is protected by the Federal Confidentiality of Alcohol and Drug Abuse Patient Records regulations: The Federal rules restrict any use of the information to criminally investigate or prosecute any alcohol or drug abuse patient.[facility] the event this information is protected by the Federal Confidentiality of Alcohol and Drug Abuse Patient Records regulations: The Federal rules restrict any use of the information to criminally investigate or prosecute any alcohol or drug abuse patient.[facility] the event this information is protected by the Federal Confidentiality of Alcohol and Drug Abuse Patient Records regulations: The Federal rules restrict any use of the information to criminally investigate or prosecute any alcohol or drug abuse patient.[facility] the event this information is protected by the Federal Confidentiality of Alcohol and Drug Abuse Patient Records regulations: The Federal rules restrict any use of the information to criminally investigate or prosecute any alcohol or drug abuse patient.[facility] the event this information is protected by the Federal Confidentiality of Alcohol and Drug Abuse Patient Records regulations: The Federal rules restrict any use of the information to criminally investigate or prosecute any alcohol or drug abuse patient.[facility] Reason for Visit (unrecogniz ed section and content) Reason Comments Patient Update Reason Comments Follow Up Reason Comments Stoma Consult Care Teams (unrecognized sec tion and content) Hurl Shaker Relationship Specialty Start Date End Date Chente Perkins MD [address] [facility] [place], [place] [id number] PCP - General 06/03/00 [facility] 05/19/18 Hurl Shaker Relationship Specialty Start Date End Date Chente Perkins MD [address] [place] [address] PCP - General 06/03/00 [facility] 05/19/18 Hurl Shaker Relationship Specialty Start Date End Date Chente Perkins MD [address] [place], [place] [phone] PCP - General 06/03/00 [facility] 05/19/18 (unrecognized sect ion and content) No Status Records Found INFORMATION SOURCE (unrecogn ized section and content) FOR RECORDS PERTAINING TO PATIENTS WHO ARE OR HAVE BEEN ENROLLED IN A CHEMICAL DEPENDENCY/SUBSTANCEABUSE PROGRAM, SOME INFORMATION MAY BE OMITTED. This clinical summary was aggregated from multiple sources. Caution should be exercised in using it in the provision of clinical care. This summary normalizes information from multiple sources, and as a consequence, information in this document may materially change the coding, format and clinical context of patient data. In addition, data may be omitted in some cases. CLINICAL DECISIONS SHOULD BE BASED ON THE PRIMARY CLINICAL RECORDS. [facility] [employer] [facility] provides no warranty or guarantee of the accuracy or completeness of information in this document.
[2023-03-01 09:54] LABS: Absolute Lymphocyte Count 2.53 X10^3/uL (0.83-4.51); Absolute Neutrophil Count 3.5 X10^3/uL (2.0-7.7); Basophil# 0.02 X10^3/uL; Basophil% 0.3 % (0-1); Eosinophil# 0.34 X10^3/uL; Eosinophils% 4.9 % (0-5); Hematocrit 35.9 % (40-54); Hemoglobin 11.1 g/dL (13.0-16.5); Lymphocyte # 2.53 X10^3/ul (0.83-4.51); Lymphocyte % 36.3 % (19-41); Mean Corp Hgb Conc 30.9 g/dL (32-36); Mean Corpuscular Hgb 25.8 pg (27.0-32.0); Mean Corpuscular Volume 83.5 fL (80-94); Monocyte# 0.62 X10^3/uL; Monocyte% 8.9 % (0-10); NRBC Flagged by Analyzer 0 % (0-5); Neutrophil # 3.45 X10^3/uL (2.7-7.7); Neutrophil % 49.5 % (47-70); Platelet Count 202 K/mm3 (150-450); RBC Distribution Width CV 14.6 % (11.6-14.6); RBC Distribution Width SD 44.3 fl (35.1-43.9)
[2023-03-01 10:14] LABS: Anion Gap 7 (5-15); BUN 24 mg/dL (7-18); BUN/Creat Ratio 60.6 RATIO (10-20); Calcium,Total 8.7 mg/dL (8.5-10.1); Chloride 105 mmol/L (98-107); EST Glomerular Filtration Rate 255 mL/min (>60); Est Glom Filt Rate - Afr Amer 308 mL/min (>60); Glucose 93 mg/dL (74-106); Potassium 3.8 mmol/L (3.5-5.1); Sodium Level 140 mmol/L (136-145)
== END | disposition home or self-care (01) ==
LOC: LABSPEC 09:24
PROVIDERS: PCP Family Medicine; Referring Provider Family Medicine; Visit Provider Family Medicine
DX: E55.9 Vitamin D deficiency, unspecified (principal); K31.84 Gastroparesis
CPT/HCPCS: 80048; 85025

== ENCOUNTER 2023-03-23 12:10 | Inpatient (IN) | payer MEDICARE, MEDICAID, SELFPAY ==
[2023-03-23] VITALS (8 sets, daily range): BP systolic 124–139; BP diastolic 80–93; PULSE 87–149; RESP 12–21; TEMP 36.2–37.1; O2SAT 92–96; BMI 34.8; BMI 33.7
--- NOTE | 2023-03-23 12:21 | EDS_ITS ---
HPI <REYNA Scott - Last Filed: 03/23/23 16:27> History of Present Illness Chief Complaint: Nausea/Vomiting Narrative Narrative: Patient is a 43-year-old male with history of cerebral palsy who has a history of aspiration pneumonia with nausea and vomiting. Patient has multiple respiratory problems secondary to his cerebral palsy, patient is a trach, is on oxygen daily, sleeps with the vent. Per the mom, 2 hours prior to arrival patient had 6 episodes of vomiting. The patient then became in slightly respiratory distress, she was trying to suction however only got out scant amount of clear fluid. Per the mom, patient had no fever at home, has not been around any sick persons. [facility] <REYNA Scott - Last Filed: 03/23/23 16:27> [facility] Medical History Acute dyspnea Anemia in chronic illness Anxiety Cerebral palsy Cerebral palsy Chronic respiratory failure Chronic respiratory failure with hypoxia Colostomy prolapse Debility Edema GERD (gastroesophageal reflux disease) History of seizure disorder Iron deficiency anemia Non-smoker Nonrheumatic mitral valve prolapse Obesity On home oxygen therapy Pseudomonas pneumonia Pulmonary embolism Pulmonary embolism on left (06/14/19) Redundant colon Seizures Thrombocytopenia Tracheostomy in place Upper GI bleeding (04/2020) Home Medications phenobarbital 20 mg/5 mL (4 mg/mL) oral elixir 60 mg G-tube 0830,2100 SEIZURES 02/19/17 [History Last Taken 03/23/23] metoclopramide HCl 5 mg/5 mL oral solution 10 mg feeding tube 0830,1600,2100 STOMACH 09/16/18 [History Last Taken 03/23/23] Cough Assist 1 dose .Route .MEDSUPPLY assist in clearing secretions 12/25/18 [History Last Taken 03/23/23] oxygen concentrator 1 dose .Route .MEDSUPPLY second unit, 4 LPM cont all modalities 12/25/18 [History Last Taken Unknown] gabapentin 250 mg/5 mL oral solution 500 mg G-tube 0000,0600,1200,1800 SEIZURES 09/26/19 [History Last Taken 03/23/23] albuterol sulfate 2.5 mg/3 mL (0.083 %) solution for nebulization 2.5 mg inhalation Q4H PRN Sob &/Or Wheezing 11/27/20 [History Last Taken Unknown] lactose-reduced food with fiber 0.06 gram-1.2 kcal/mL oral liquid 1,000 ml G- tube DAILY NUTRITION 11/27/20 [History Last Taken 03/23/23] plecanatide 3 mg tablet 3 mg G-tube 0830 BOWELS 11/27/20 [History Last Taken 03/23/23] doxazosin 2 mg tablet 2 mg PO 0830 BLOOD PRESSURE 11/30/21 [History Last Taken 03/23/23] cholecalciferol (vitamin D3) 10 mcg/mL (400 unit/mL) oral drops 15 mcg feeding tube 0830 SUPPLEMENT 03/24/22 [History Last Taken 03/23/23] guaifenesin 200 mg/5 mL oral liquid 200 mg feeding tube 0830 PRN COUGH/CONGESTION 03/24/22 [History Last Taken Unknown] acetaminophen 650 mg/20.3 mL oral suspension 650 mg feeding tube 0000,0600,1200,1800 PRN PAIN 10/24/22 [History Last Taken Unknown] aluminum-mag hydroxide-simethicone 200 mg-200 mg-20 mg/5 mL oral susp 5 ml PO 0000,0600,1200,1800 PRN ANTACID 10/24/22 [History Last Taken Unknown] cetirizine 1 mg/mL oral solution 10 mg feeding tube 1600 ALLERGIES 10/24/22 [History Last Taken 03/22/23] baclofen 20 mg tablet 20 mg feeding tube Q6H MUSCLE SPASMS 12/10/22 [History Last Taken 03/23/23] ondansetron 4 mg disintegrating tablet 4 mg PO Q8H PRN NAUSEA/VOMITING #30 tabs 12/13/22 [Rx Last Taken Unknown] lorazepam 2 mg/mL injection solution (Ativan) 1 mg IM DAILY PRN AGITATION 03/02/23 [History Last Taken Unknown] montelukast 4 mg oral granules in packet (Singulair) 4 mg PO DAILY ASTHMA #30 ea 03/02/23 [Rx Last Taken Unknown] esomeprazole magnesium 40 mg granules delayed release for susp (Nexium Packet) 40 mg G-tube BID ACID REFLUX 03/23/23 [History Last Taken 03/23/23] ipratropium 0.5 mg-albuterol 3 mg (2.5 mg base)/3 mL nebulization soln 3 ml inhalation Q4H PRN SOB &/OR WHEEZING 03/23/23 [History Last Taken Unknown] Allergy/AdvReac Type Severity Reaction Status Date / Time chlorhexidine Allergy Rash Verified 03/02/23 13:16 cisapride monohydrate Allergy Rash Verified 03/02/23 13:16 [From Propulsid] house dust Allergy NEEDS Verified 03/02/23 13:16 FOLLOW-UP codeine AdvReac hallucinati Verified 03/02/23 13:16 ons metronidazole [From Flagyl] AdvReac Rash Verified 03/02/23 13:16 morphine AdvReac Hallucinati Verified 03/02/23 13:16 ons Family History (Reviewed 03/02/23 @ 13:38 by Valarie Kee PHOTOGRAMMETRIC STEREO COMPILER, PHOTOGRAMMETRIC STEREO COMPILER-C) Mother Hepatitis C Hypertension HIV disease Father H/O heart artery stent CAD (coronary artery disease) Atrial fibrillation Hypertension Esophageal cancer Surgical History (Reviewed 03/02/23 @ 13:38 by Valarie Kee PHOTOGRAMMETRIC STEREO COMPILER, PHOTOGRAMMETRIC STEREO COMPILER-C) Colostomy in place Heel cord lengthening History of colostomy History of eye surgery History of gastrostomy tube placement History of open reduction and internal fixation (ORIF) procedure History of soft tissue release Status post insertion of intrathecal baclofen pump Social History household members: family housing: house current occupational status: disabled Smoking Status: Never smoker alcohol intake: never substance use type: does not use caffeine: No ROS <REYNA Scott - Last Filed: 03/23/23 16:27> ROS ED ROS Narrative Secondary to cerebral palsy, patient being nonverbal, the patient is unable to answer review of symptoms EXAM <REYNA Scott - Last Filed: 03/23/23 16:27> Physical Exam Narrative Exam Narrative: Vital signs reviewed. Patient is tachypneic, tachycardic, appears to be in mild respiratory distress. HEET: Head normocephalic atraumatic, TMs clear bilaterally. Posterior pharynx is clear, moist mucous membranes. Nares clear bilaterally. Neck: Supple with no lymphadenopathy or tenderness. No signs of meningismus. Cardiac tachycardic rate no murmurs gallops or rubs, equal peripheral pulses bilaterally. Respiratory: crackles to the lower bases, diminished lung sounds.. No chest tenderness. Abdomen: Soft, nontender, nondistended. No abdominal bruit or pulsatile masses. No hepatosplenomegaly. Patient's abdomen is firm, patient does have a ileostomy Extremities: No peripheral edema, no signs of gross trauma or deformity. Active full range of motion of all extremities. Neuro: Cranial nerves II through XII intact, no focal neurological deficits. Per baseline Skin: Clean dry and intact with no rash, purpura, petechiae, vesicles or pustules. Backs/flank: No CVA tenderness, no midline spinal tenderness, no deformity. Psych: Normal mood and affect. No SI, HI or acute psychosis. Const Vital Signs: 03/23/23 12:12 03/23/23 12:19 03/23/23 12:57 Temperature 97.7 F L Temperature Source Temporal Pulse Rate 149 H 145 H Respiratory Rate 20 H 20 H Respiratory Pattern Normal Blood Pressure Blood Pressure Mean Pulse Ox 92 94 Oxygen Delivery Method Mechanical Ventilator 03/23/23 14:00 03/23/23 15:25 Temperature 97.1 F L Temperature Source Temporal Pulse Rate 137 H 115 H Respiratory Rate 21 H 16 Respiratory Pattern Blood Pressure 139/93 H 124/81 H Blood Pressure Mean 108 95 Pulse Ox 95 95 Oxygen Delivery Method Mechanical Ventilator Mechanical Ventilator <Dr. Siddharth De La Rosa MD - Last Filed: 03/23/23 17:09> Physical Exam Const Vital Signs: 03/23/23 12:12 03/23/23 12:19 03/23/23 12:57 Temperature 97.7 F L Temperature Source Temporal Pulse Rate 149 H 145 H Respiratory Rate 20 H 20 H Respiratory Pattern Normal Blood Pressure Blood Pressure Mean Pulse Ox 92 94 Oxygen Delivery Method Mechanical Ventilator 03/23/23 14:00 03/23/23 15:25 Temperature 97.1 F L Temperature Source Temporal Pulse Rate 137 H 115 H Respiratory Rate 21 H 16 Respiratory Pattern Blood Pressure 139/93 H 124/81 H Blood Pressure Mean 108 95 Pulse Ox 95 95 Oxygen Delivery Method Mechanical Ventilator Mechanical Ventilator [facility] <REYNA Scott - Last Filed: 03/23/23 16:27> [facility] Lab Data Labs: Laboratory Results - last 24 hr 03/23/23 03/23/23 12:35 13:23 WBC 13.0 H RBC 5.07 Hgb 13.1 Hct 42.2 MCV 83.2 MCH 25.8 L MCHC 31.0 L RDW Std Deviation 45.1 H RDW Coeff of Emilee 14.8 H Plt Count 229 MPV 10.1 Immature Gran % (Auto) 0.400 Neut % (Auto) 70.6 H Lymph % (Auto) 21.7 Hooker % (Auto) 5.1 Eos % (Auto) 2.0 Baso % (Auto) 0.2 Absolute Neuts (auto) 9.1 H Absolute Lymphs (auto) 2.81 Nucleated RBC % 0 PT 12.9 INR 1.0 APTT 31.1 Sodium 135 L Potassium 3.7 Chloride 104 Carbon Dioxide 26.0 Anion Gap 5 BUN 21 H Creatinine 0.46 L Estim Creat Clear Calc 186.40 Est GFR (MDRD) Af Amer 262 Est GFR (MDRD) Non-Af 217 BUN/Creatinine Ratio 46.1 H Glucose 123 H Lactic Acid 5.3 H* Calcium 8.8 Total Bilirubin 0.20 AST 16 ALT 29 Alkaline Phosphatase 169 H Total Protein 8.8 H Albumin 3.6 Globulin 5.2 H Albumin/Globulin Ratio 0.7 L Radiography Diagnostic Testing: Clinical Impression(s) from Imaging Studies Chest X-Ray 03/23/23 13:22 IMPRESSION: Limited inspiratory effort due to patient''s condition. There has been essentially no change prior study. Electronically Signed: Matti Greer MD at 13:40 EST , EKG EKG shows tachycardic rhythm, difficult because the patient is constantly moving.: Attestation: I personally reviewed and interpreted this EKG as follows: Comments: Sinus tachycardia Treatment and Re-Evaluation :: Patient appears to be in mild respiratory distress, tachycardia tachypneic. Patient mother at bedside. Presenting to the emergency department with complaints of nausea and vomiting at home. Differential diagnose includes community-acquired pneumonia, viral symptoms, aspiration pneumonia. Patient will receive a full septic workup, Zofran. Chest x-ray. All radiologic examinations were read, reviewed by the emergency department attending. From these reads, a plan of care will be put in place. Patient be placed on the vent that was brought from home secondary to the familiarity and appropriate vent settings. Patient heart rate remains elevated, patient is doing well on his ventilation with a pulse oxygenation is 95, patient is more calm. Patient's CBC shows a leukocytosis of white blood count of 13, PT/INR within normal limits. Patient's chemistries show glucose of 123, patient's lactic acid was 5.3 which is elevated. Alkaline phos is 169. Chest x-ray interpreted by ER physician shows Limited inspiration effort due to patient's condition, there is been no change from the prior study. Patient will be treated for aspiration pneumonia with Unasyn, IV fluids 500 cc bolus, at this time, do be the patient needs to be admi tted for aspiration pneumonia, nausea and vomiting, hypoxia. I spoke with the mother who is agreement. Secondary to the patient's elevated heart rate, increased restlessness. I will speak to the hospitalist. Patient's respiratory panel was negative. Patient be excepted by hospitalist. <Dr. Siddharth De La Rosa MD - Last Filed: 03/23/23 17:09> [facility] Lab Data Labs: Laboratory Results - last 24 hr 03/23/23 03/23/23 12:35 13:23 WBC 13.0 H RBC 5.07 Hgb 13.1 Hct 42.2 MCV 83.2 MCH 25.8 L MCHC 31.0 L RDW Std Deviation 45.1 H RDW Coeff of Emilee 14.8 H Plt Count 229 MPV 10.1 Immature Gran % (Auto) 0.400 Neut % (Auto) 70.6 H Lymph % (Auto) 21.7 Hooker % (Auto) 5.1 Eos % (Auto) 2.0 Baso % (Auto) 0.2 Absolute Neuts (auto) 9.1 H Absolute Lymphs (auto) 2.81 Nucleated RBC % 0 PT 12.9 INR 1.0 APTT 31.1 Sodium 135 L Potassium 3.7 Chloride 104 Carbon Dioxide 26.0 Anion Gap 5 BUN 21 H Creatinine 0.46 L Estim Creat Clear Calc 186.40 Est GFR (MDRD) Af Amer 262 Est GFR (MDRD) Non-Af 217 BUN/Creatinine Ratio 46.1 H Glucose 123 H Lactic Acid 5.3 H* Calcium 8.8 Total Bilirubin 0.20 AST 16 ALT 29 Alkaline Phosphatase 169 H Total Protein 8.8 H Albumin 3.6 Globulin 5.2 H Albumin/Globulin Ratio 0.7 L Radiography Diagnostic Testing: Clinical Impression(s) from Imaging Studies Chest X-Ray 03/23/23 13:22 IMPRESSION: Limited inspiratory effort due to patient''s condition. There has been essentially no change prior study. Electronically Signed: Matti Greer MD at 13:40 EST , Management Discussion w/another healthcare provider: Hospitalist Treatment and Re-Evaluation Comments:: Usual I have personally performed a face to face assessment of the patient and have reviewed the VIC Note. I performed a substantive portion of the visit including all aspects of the following. My mcclain findings include: History is chronic respiratory failure with tracheostomy, mother had the balloon down when he was vomiting and we suspect aspiration which she has a longstanding history of. Very short of breath since then. Exam is respiratory distress, coarse breath sounds bilaterally equal bilaterally. Keenly alert. At baseline mental status per family. Heart regular tachycardic. Medical Decison Making respiratory at the bedside. Placing the patient on his own ventilator and will adjust settings accordingly, perform suction, nebulizers, chest x-ray, labs, as other measures of supportive care with oxygen and reevaluate continuously. Patient better with ventilator support. Lactic acidosis is noted, his heart rate is down, he is requiring more oxygen than usual to maintain normoxia. Plan is for admission. I think PCU was okay, he does not appear to need critical care support at this time Other additions or changes: [None] <Dr. Siddharth De La Rosa MD - Last Filed: 03/23/23 17:09> Critical Care Time Critical Care Time: Yes Critical care time (excluding procedures): 30-74 minutes (36 min), Including time spent:, Discussing w/Patient &/or Family/Wastewater Engineer, Discussing w/Consultants, Arranging Admission or Transfer and Performing Direct Patient Care at Bedside Discharge Plan Dx/Rx/DC Orders Clinical Impression: Acute hypoxemic respiratory failure, Aspiration pneumonia, Cerebral palsy, Acidosis, lactic Disposition Disposition: Acute Care [facility] Discharge Date/Time: 03/23/23 16:46
[2023-03-23 12:45] LABS: Absolute Lymphocyte Count 2.81 X10^3/uL (0.83-4.51); Absolute Neutrophil Count 9.1 X10^3/uL (2.0-7.7); Basophil# 0.03 X10^3/uL; Basophil% 0.2 % (0-1); Eosinophil# 0.26 X10^3/uL; Hematocrit 42.2 % (40-54); Hemoglobin 13.1 g/dL (13.0-16.5); Lymphocyte # 2.81 X10^3/ul (0.83-4.51); Lymphocyte % 21.7 % (19-41); Mean Corpuscular Hgb 25.8 pg (27.0-32.0); Mean Corpuscular Volume 83.2 fL (80-94); Mean Platelet Vol. 10.1 fl (6.2-12.0); Monocyte# 0.66 X10^3/uL; Monocyte% 5.1 % (0-10); NRBC Flagged by Analyzer 0 % (0-5); Neutrophil # 9.14 X10^3/uL (2.7-7.7); Neutrophil % 70.6 % (47-70); Platelet Count 229 K/mm3 (150-450); RBC Distribution Width CV 14.8 % (11.6-14.6); RBC Distribution Width SD 45.1 fl (35.1-43.9); Red Blood Count 5.07 M/mm3 (4.6-6.2)
[2023-03-23] MEDS: Ondansetron 4 MG/2 ML Vial IV (12:46)
[2023-03-23 12:55] LABS: Prothrombin Time (Protime)PT. 12.9 SECONDS (11.7-14.9)
[2023-03-23] MEDS: Ipratropium/Albuterol Sulfate 3 ML AMPUL.NEB INHALATION ×2 (12:55→18:47)
[2023-03-23] MEDS: Albuterol 2.5 MG/3 ML VIAL.NEB. INHALATION (12:55)
[2023-03-23 12:56] LABS: Partial Thromboplast Time 31.1 Seconds (24.1-36.2)
[2023-03-23 13:13] LABS: Lactic Acid 5.3 mmol/L (0.4-1.9)
--- NOTE | 2023-03-23 13:22 | RAD_ITS ---
STUDY: X-RAY CHEST REASON FOR EXAM: Male, 43 years old. Cough TECHNIQUE: Single AP portable view of the chest. COMPARISON: Comparison is made with prior study dated January 16, 2023. FINDINGS: A tracheostomy tube is seen with the tip at 4.3 cm proximal to the clark. A right-sided portacatheter seen with the tip in the right atrium. EKG electrodes are seen. Limited inspiratory effort due to the patient''s condition. The lungs are clear. Stable blunting of the right costophrenic angle. Borderline cardiomegaly. Normal mediastinum and rachelle. Normal visualized pulmonary arteries. Normal visualized aortic arch and descending thoracic aorta. There are diffuse degenerative changes of the visualized thoracic spine. Normal visualized ribs, clavicles, and shoulders. There is no demonstrated abnormality of the visualized soft tissue structures of the upper abdomen. RAD/Chest 1 View (Portable) IMPRESSION: Limited inspiratory effort due to patient''s condition. There has been essentially no change prior study. Electronically Signed: Matti Greer MD at 13:40 EST ,
[2023-03-23 13:52] LABS: ALB/GLOB Ratio 0.7 RATIO (0.9-2.4); AST(SGOT) 16 U/L (15-37); Alanine Aminotransfer ALT/SGPT 29 U/L (16-61); Albumin, Serum 3.6 g/dL (3.2-5.0); Alkaline Phosphatase 169 U/L (45-117); Anion Gap 5 (5-15); BUN 21 mg/dL (7-18); BUN/Creat Ratio 46.1 RATIO (10-20); Calcium,Total 8.8 mg/dL (8.5-10.1); Chloride 104 mmol/L (98-107); Creatinine, Serum 0.46 mg/dL (0.70-1.30); EST Glomerular Filtration Rate 217 mL/min (>60); Est Glom Filt Rate - Afr Amer 262 mL/min (>60); Globulin 5.2 g/dL (2.2-4.2); Glucose 123 mg/dL (74-106); Potassium 3.7 mmol/L (3.5-5.1); Protein, Total 8.8 g/dL (6.4-8.2); Sodium Level 135 mmol/L (136-145)
[2023-03-23] MEDS: 0.9% Normal Saline (500mL Bag) 500 ML 999 ML IV (15:11)
[2023-03-23] MEDS: Ampicillin/Sulbactam 3 GM in 0.9% Normal Saline (100mL MB+) 100 ML IV ×2 (15:11→17:44)
--- NOTE | 2023-03-23 16:33 | PCM.HP.STD ---
HPI - General General Date of Admission: 03/23/23 Date of Service: 03/23/23 Chief Complaint: Respiratory distress HPI Narrative KRISS MICHAEL, is a 43-year-old male with a history of cerebral palsy with spastic quadriplegia, chronic dysphagia with a PEG tube, chronic respiratory failure with 4 L O2 during the day and trach with home vent nightly, seizure disorder, and GERD who presented to [facility] 03/23/2023 due to concern for aspiration and respiratory distress. He had been in his usual health but his trach cuff was down for care purposes and before it was reinflated patient had episode of emesis and then had shortness of breath and respiratory distress prompting patient to come to ED. In ED he was 88% on his 4 L and required patient to be placed on home vent which he only uses usually at bedtime. He additionally was noted to be in respiratory distress, chest x-ray not yet reflective of an aspiration event, patient was given nebs and antibiotics and begin to improve. Hospitalist contacted for admission. Patient evaluated at bedside with mother present. Pt unable to contribute to hx so hx obtained from mother. Patient was in his usual health until earlier today when he had 6-7 episodes of vomiting then went to respiratory distress and reportedly vomited 1-2 times here and he was given Zofran and she also vented air from his stomach and has had no further vomiting. She reports he is doing much better and patient is presently not in any acute distress. [facility] Medical History Acute dyspnea Anemia in chronic illness Anxiety Cerebral palsy Cerebral palsy Chronic respiratory failure Chronic respiratory failure with hypoxia Colostomy prolapse Debility Edema GERD (gastroesophageal reflux disease) History of seizure disorder Iron deficiency anemia Non-smoker Nonrheumatic mitral valve prolapse Obesity On home oxygen therapy Pseudomonas pneumonia Pulmonary embolism Pulmonary embolism on left (06/14/19) Redundant colon Seizures Thrombocytopenia Tracheostomy in place Upper GI bleeding (04/2020) Home Medications phenobarbital 20 mg/5 mL (4 mg/mL) oral elixir 60 mg G-tube 0830,2100 SEIZURES 02/19/17 [History Last Taken 03/23/23] metoclopramide HCl 5 mg/5 mL oral solution 10 mg feeding tube 0830,1600,2100 STOMACH 09/16/18 [History Last Taken 03/23/23] Cough Assist 1 dose .Route .MEDSUPPLY assist in clearing secretions 12/25/18 [History Last Taken 03/23/23] oxygen concentrator 1 dose .Route .MEDSUPPLY second unit, 4 LPM cont all modalities 12/25/18 [History Last Taken Unknown] gabapentin 250 mg/5 mL oral solution 500 mg G-tube 0000,0600,1200,1800 SEIZURES 09/26/19 [History Last Taken 03/23/23] albuterol sulfate 2.5 mg/3 mL (0.083 %) solution for nebulization 2.5 mg inhalation Q4H PRN Sob &/Or Wheezing 11/27/20 [History Last Taken Unknown] lactose-reduced food with fiber 0.06 gram-1.2 kcal/mL oral liquid 1,000 ml G-tube DAILY NUTRITION 11/27/20 [History Last Taken 03/23/23] plecanatide 3 mg tablet 3 mg G-tube 0830 BOWELS 11/27/20 [History Last Taken 03/23/23] doxazosin 2 mg tablet 2 mg PO 0830 BLOOD PRESSURE 11/30/21 [History Last Taken 03/23/23] cholecalciferol (vitamin D3) 10 mcg/mL (400 unit/mL) oral drops 15 mcg feeding tube 0830 SUPPLEMENT 03/24/22 [History Last Taken 03/23/23] guaifenesin 200 mg/5 mL oral liquid 200 mg feeding tube 0830 PRN COUGH/CONGESTION 03/24/22 [History Last Taken Unknown] acetaminophen 650 mg/20.3 mL oral suspension 650 mg feeding tube 0000,0600,1200,1800 PRN PAIN 10/24/22 [History Last Taken Unknown] aluminum-mag hydroxide-simethicone 200 mg-200 mg-20 mg/5 mL oral susp 5 ml PO 0000,0600,1200,1800 PRN ANTACID 10/24/22 [History Last Taken Unknown] cetirizine 1 mg/mL oral solution 10 mg feeding tube 1600 ALLERGIES 10/24/22 [History Last Taken 03/22/23] baclofen 20 mg tablet 20 mg feeding tube Q6H MUSCLE SPASMS 12/10/22 [History Last Taken 03/23/23] ondansetron 4 mg disintegrating tablet 4 mg PO Q8H PRN NAUSEA/VOMITING #30 tabs 12/13/22 [Rx Last Taken Unknown] lorazepam 2 mg/mL injection solution (Ativan) 1 mg IM DAILY PRN AGITATION 03/02/23 [History Last Taken Unknown] montelukast 4 mg oral granules in packet (Singulair) 4 mg PO DAILY ASTHMA #30 ea 03/02/23 [Rx Last Taken Unknown] esomeprazole magnesium 40 mg granules delayed release for susp (Nexium Packet) 40 mg G-tube BID ACID REFLUX 03/23/23 [History Last Taken 03/23/23] ipratropium 0.5 mg-albuterol 3 mg (2.5 mg base)/3 mL nebulization soln 3 ml inhalation Q4H PRN SOB &/OR WHEEZING 03/23/23 [History Last Taken Unknown] Allergy/AdvReac Type Severity Reaction Status Date / Time chlorhexidine Allergy Rash Verified 03/02/23 13:16 cisapride monohydrate Allergy Rash Verified 03/02/23 13:16 [From Propulsid] house dust Allergy NEEDS Verified 03/02/23 13:16 FOLLOW-UP codeine AdvReac hallucinati Verified 03/02/23 13:16 ons metronidazole [From Flagyl] AdvReac Rash Verified 03/02/23 13:16 morphine AdvReac Hallucinati Verified 03/02/23 13:16 ons Family History Mother Hepatitis C Hypertension HIV disease Father H/O heart artery stent CAD (coronary artery disease) Atrial fibrillation Hypertension Esophageal cancer Surgical History Colostomy in place Heel cord lengthening History of colostomy History of eye surgery History of gastrostomy tube placement History of open reduction and internal fixation (ORIF) procedure History of soft tissue release Status post insertion of intrathecal baclofen pump Social History household members: family housing: house current occupational status: disabled Smoking Status: Never smoker alcohol intake: never substance use type: does not use caffeine: No ROS ROS Narrative Unable to obtain from patient due to mental status, pertinent positives are respiratory distress and vomiting Vital Signs Vital Signs Vital Signs: 03/23/23 12:12 03/23/23 12:19 03/23/23 12:57 Temperature 97.7 F L Temperature Source Temporal Pulse Rate 149 H 145 H Respiratory Rate 20 H 20 H Respiratory Pattern Normal Blood Pressure Blood Pressure Mean Pulse Ox 92 94 Oxygen Delivery Method Mechanical Ventilator 03/23/23 14:00 03/23/23 15:25 Temperature 97.1 F L Temperature Source Temporal Pulse Rate 137 H 115 H Respiratory Rate 21 H 16 Respiratory Pattern Blood Pressure 139/93 H 124/81 H Blood Pressure Mean 108 95 Pulse Ox 95 95 Oxygen Delivery Method Mechanical Ventilator Mechanical Ventilator Weight Weight: 80.9 kg Body Mass Index (BMI) 34.8 Physical Exam Narrative General: Alert, no apparent distress HEENT: Atraumatic, normocephalic Eyes: Anicteric, normal conjunctiva, extraocular movements grossly intact Neck: Supple Respiratory: Slightly coarse with normal respiratory effort Cardiovascular: Regular rate and rhythm GI: Soft, nondistended Extremities: No significant pitting edema Musculoskeletal: Moving all extremities Neuro: No overt focal neurological deficits Skin: No rashes appreciated Psych: Unable to cooperate secondary to mental status Results Lab / Micro Data 03/23/23 12:35 03/23/23 13:23 Labs: Laboratory Results - last 24 hr 03/23/23 12:35: WBC 13.0 H, RBC 5.07, Hgb 13.1, Hct 42.2, MCV 83.2, MCH 25.8 L, MCHC 31.0 L, RDW Std Deviation 45.1 H, RDW Coeff of Emilee 14.8 H, Plt Count 229, MPV 10.1, Immature Gran % (Auto) 0.400, Neut % (Auto) 70.6 H, Lymph % (Auto) 21.7, [place] % (Auto) 5.1, Eos % (Auto) 2.0, Baso % (Auto) 0.2, Absolute Neuts (auto) 9.1 H, Absolute Lymphs (auto) 2.81, Nucleated RBC % 0, PT 12.9, INR 1.0, APTT 31.1, Lactic Acid 5.3 H* 03/23/23 13:23: Sodium 135 L, Potassium 3.7, Chloride 104, Carbon Dioxide 26.0, Anion Gap 5, BUN 21 H, Creatinine 0.46 L, Estim Creat Clear Calc 186.40, Est GFR (MDRD) Af Amer 262, Est GFR (MDRD) Non-Af 217, BUN/Creatinine Ratio 46.1 H, Glucose 123 H, Calcium 8.8, Total Bilirubin 0.20, AST 16, ALT 29, Alkaline Phosphatase 169 H, Total Protein 8.8 H, Albumin 3.6, Globulin 5.2 H, Albumin/Globulin Ratio 0.7 L Micro: Microbiology 03/23/23 12:55 Mucosa - Nose Respiratory Panel (PCR) - Final Imaging Radiology Impression Chest X-Ray 03/23/23 13:22 IMPRESSION: Limited inspiratory effort due to patient''s condition. There has been essentially no change prior study. Electronically Signed: Matti Greer MD at 13:40 EST , Assessment & Plan Assessment/Plan (1) Acute hypoxemic respiratory failure: (2) Acidosis, lactic: PLAN: Plan # Acute on chronic respiratory failure on chronic 4 L O2 during daytime and vent via tracheostomy nightly -88% and in acute respiratory distress on arrival on his 4 L of O2 through trach and had to be placed on his home vent that he usually only uses at bedtime -Went into respiratory distress after episode of vomiting, suspect aspiration, chest x-ray not yet reflective of this episode however given history, symptoms, presentation will be treated as such -Continue nebs, antibiotics -Consult pulm -Continue supportive care # Elevated lactic acid -Of 5.3, will repeat/trend -Suspect this was due to respiratory distress and hypoxia #Cerebral palsy with spastic quadriplegia -Baclofen, gabapentin, Ativan #Seizure disorder -Gabapentin, Ativan, phenobarb #Chronic dysphagia -Status post PEG tube -Tube feeds #GERD -Continue PPI #DVT ppx: SCDs Lucia Dillard MD Time spent in the patient's overall evaluation,decision-making process, review of diagnostic data, adjustment of management, discussion with other providers, nursing nursing and ancillary staff involved in patient's care documentation, 56 Minutes Charges/Coding Visit Charges Inpatient E&M: 91480 Init Hosp L2
[2023-03-23 16:40] LABS: Reflex Lactate? Y
--- OUTSIDE RECORDS SUMMARY | 2023-03-23 17:10 | XMS RPT_ITS | CCD ---
Author Name Unknown Address [address] [place] [address] Organization [facility] Care Team Providers Care Pipeman Name Role Phone Aurora VARGAS, Luis Cooley Unavailable Betty Chowdhury Unavailable Unavailable RE Angela, Bella Cooley Unavailable Unavailgalo Waite MD, Anderson S Unavailable Marco LIFE ASSURANCE REPRESENTATIVE, Chente Unavailable Betty Chowdhury Unavailable Unavailable Betty Chowdhury Unavailable Unavailable Chente Perkins MD Primary Care Provider CHENTE PERKINS Primary Care Unavailable Yola LEAVITT Attending Unavailable CHENTE PERKINS Primary Care Unavailable Allergies Allergy Classification Reported Allergen(s) Allergy Type Date of Onset Reaction(s) Facility (16 sources) acetaminophen / codeine drug allergy 07-04-19 15 [facility] Work Phone: [phone] (8 sources) cisapride drug allergy 07-04-19 15 [facility] Work Phone: [phone] (8 sources) codeine drug allergy 07-04-19 15 [facility] Work Phone: [phone] (14 sources) Dust; Translations: [DUST] allergy to substance 07-04-19 15 [facility] Work Phone: [phone] (8 sources) metroNIDAZOLE drug allergy 07-04-19 15 [facility] Work Phone: [phone] (14 sources) morphine; Translations: [ASTRAMORPH] allergy to substance 07-04-19 15 halluc[facility] Work Phone: [phone] (12 sources) morphine; Translations: [MORPHINE] drug allergy 06-23-19 06 Other: See Comments [facility] Work Phone: (14 sources) vancomycin; Translations: [VANCOMYCIN HCL] drug allergy 01-08-20 16 [facility] Work Phone: (6 sources) Cisapride; Translations: [PROPULSID] Drug Allergy 02-08-20 12 [facility] (6 sources) Codeine; Translations: [CODEINE] Drug Allergy 06-23-19 06 Other: See Comments [facility] Work Phone: (6 sources) metroNIDAZOLE; Translations: [METRONIDAZOLE HCL] Drug Allergy 05-09-19 15 [facility] Work Phone: Medications Completed/Discontinued Medications [...] sources) Drug therapy finding; Translations: [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) drug therapy] Onset: 5 02-17-2021 Episodic [...] 09:39-0400 BMI (Body Mass Index) 30.27 kg/m2 [facility] Work Phone: 08-28-2016 09:39-0400 BP Diastolic 62 mm[Hg] [facility] Work Phone: 08-28-2016 09:39-0400 BP Systolic 106 mm[Hg] [facility] Work Phone: 08-28-2016 09:39-0400 Height 152.4 cm [facility] Work Phone: 08-28-2016 09:39-0400 Pulse (Heart Rate) 78 /min [facility] Work Phone: 08-28-2016 09:39-0400 Respiratory Rate 12 /min [facility] Work Phone: 08-28-2016 09:39-0400 Weight 70.31 kg Betty Chowdhury [facility] Work Phone: 06-15-2016 11:14-0400 BP Diastolic 87 mm[Hg] Chente Lara LIFE ASSURANCE REPRESENTATIVE [facility] Work Phone: 06-15-2016 11:14-0400 BP Systolic 111 mm[Hg] Chente Lara LIFE ASSURANCE REPRESENTATIVE [facility] Work Phone: 06-15-2016 11:14-0400 Pulse (Heart Rate) 60 /min Chente Lara LIFE ASSURANCE REPRESENTATIVE [facility] Work Phone: 06-15-2016 11:14-0400 Respiratory Rate 16 /min Chente Lara LIFE ASSURANCE REPRESENTATIVE [facility] Work Phone: 01-08-2016 09:55-0500 Body Temperature 97.2 [degF] Chente Lara LIFE ASSURANCE REPRESENTATIVE [facility] Work Phone: Encounters Encounter Date [...] Author Start: 02-22-2022 DEPRESSION ASSESSMENT DEPRESSION ASSESSMENT [facility] Start: 10-23-2021 Influenza vaccination INFLUENZA (#1) [facility] Start: 10-15-2018 Hemoglobin A1c/Hemoglobin.total in Blood HBA1C [facility] Start: 08-27-2017 End: 08-27-2017 Appointment Appointment [facility] Work Phone: Start: 08-28-2016 End: 08-28-2016 Appointment Appointment [facility] Work Phone: Start: 08-28-2016 End: 08-28-2016 *BMP *BMP [facility] Work Phone: Start: 08-28-2016 End: 08-28-2016 BNP *Brain Natriuretic Peptide BNP [facility] Work Phone: Start: 08-28-2016 End: 08-28-2016 HEALTH SCIENCES PROGRAM COORDINATOR HEALTH SCIENCES PROGRAM COORDINATOR [facility] Work Phone: Start: 08-28-2016 End: 08-28-2016 Follow Up Appt 1 year Follow Up Appt 1 year [facility] Work Phone: Start: 05-27-2016 End: 05-28-2016 aPTT *PTT-Partial Thromboplastin Time [facility] Work Phone: Start: 05-27-2016 End: 05-28-2016 CBC W Auto Differential panel - Blood *CBC [facility] Work Phone: Start: 05-27-2016 End: 05-28-2016 Coagulation factor induced.INR assay in platelet poor plasma *PT/INR [facility] Work Phone: Start: 01-08-2016 End: 01-08-2016 Bacterica wound culture *Culture and Sensitivity, wound [facility] Work Phone: Start: 04-12-2012 Hepatitis B screening URINE ALBUMIN:CREATININE RATIO [facility] Start: 04-08-2012 Hepatitis B surface antibody level LDL CHOLESTEROL [facility] Start: 04-08-2012 PNEUMOCOCCAL (2 - PCV) PNEUMOCOCCAL (2 - PCV) [facility] Start: 2001 Urine microalbumin profile DTAP,TDAP,TD (1 - Tdap) [facility] Start: 02-01-2000 ANNUAL PCP TEAM CHRONIC DISEASE VISIT ANNUAL PCP TEAM CHRONIC DISEASE VISIT [facility] Start: 02-01-2000 HIV SCREENING HIV SCREENING [facility] Start: 02-01-1992 3 comp foot exam completed DIABETIC FOOT EXAM [facility] Start: 02-01-1992 Hepatitis C antibody, confirmatory test DILATED RETINAL EXAM [facility] Start: 1982 COVID-19 VACCINE (#1) COVID-19 VACCINE (#1) [facility] Start: 1982 HEPATITIS B (1 of 3 - 3-dose series) HEPATITIS B (1 of 3 - 3-dose series) [facility] Immunizations Immunization Date Immunization Notes Care Provider Fa radha 11-08-2014 influenza, injectabl e, quadrivalent, preservative free LELIA Leavitt MD Work Phone: [facility] 12-14-2012 influenza virus vacc ine, unspecified formulation LELIA Leavitt MD Work Phone: [facility] 04-08-2011 influenza virus vacc ine, unspecified formulation LELIA Leavitt MD Work Phone: [facility] 04-08-2011 pneumococcal polysaccharide vaccine, 23 valent LELIA Leavitt MD Work Phone: [facility] Payers Date Payer Category Payer Medicare MEDICARE MEDICAR E A AND B [id number] 2020-Present [phone] [place] [address] [place] [address] Medicare [id number] 2020 Medicare [id number] 2018 Medicaid MEDICAID [facility] MEDICAID [id number] 2018-Present [phone] [address] [place] [address] Medicaid [id number] 2018 Medicaid [id number] 2018 Unknown [employer] BL[employer]E SS PPO [id number] 2018-Present [phone] [address] [place] [address] PPO [id number] 2018 Unknown [id number] Social History Date Type Detail Facility Tobacco smoking status NHIS Never smoked tobacco [facility] Start: 12-27-2019 Alcohol intake Not Asked Luis Daniel iraheta [facility] Start: 1980 Sex Assigned At Not on file C [facility] Medical Equipment Procedure Code Equipment Code Equipment Origin al Text Equipment Identifier Dates Catheter Ascenda 4fr .5mm Silicone 114cm 86cm Intrathecal 2 Piece Connector - [id number] Start: 04-05-2018 Pump Int Thcl 40 ml Snchr 2 Drg - [id number] Start: 03-08-2012 Pump Synchromed Ii 87.5in Titanium Silicone 26in Intrathecal [place] - [id number] Start: 04-05-2018 Tube Shiley 10.8 mm 6.4mm 6 76mm Tracheostomy Cuff Low Pressure Fenestrate - [id number] Start: 04-20-2018 Clinical Notes 07-15-2018 to 06-30-2022 Telephone Encounter - Chichi Fowler RN - 06/30/2022 4:42 PM EDTTelephone Encounter - Amber Monreal RN - 06/30/2022 3:53 PM EDSol Cui RN - 06/15/2022 5:51 PM EDT Note Date & Type Note Facility 06-30-2022 Miscellaneous Notes [facility] nursing returned patient's mother Yue [...] e-mail. Mother will give order numbers to [facility]. Also recommended can apply stomahesive powder on mucosa. Advised maybe irritation from mucosa rubbing on pouch d/t prolapse vs the stool. Mom agreeable. Time spent: 30 minutes Chichi Fowler, RN, BSN, CWOCN [phone] Pt's mother called. She would like to discuss pt's stoma prolapse. documented in this encounter [facility] 06-15-2022 Note HNO ID: [id number] Author: Cassie Cui RN Service: ? Author [...] Requested samples from [employer] for [employer] SenSura [place] MAXI Drainable pouch with soft outlet #[id number]. Order form provided. Also discussed use of [...] hour 15 minutes Cassie BAL, RN, CWOCN [facility] 06-15-2022 History of Presen t illness Narrative [...] Requested samples from [employer] for [employer]oplast SenSura [place] MAXI Drainable pouch with soft outlet #[id number]. Order form provided. Also discussed use of [...] film. Pouching System: After reducing prolapse, applied Y[place]a Hollihesive long wedges to peristomal skin, Coloplast post-op pouch with window, Stomahesive paste, Mefix tape to frame Wear Time: 3-4 days goal Time Increment: 1 hour 15 minutes Cassie BAL, RN, CWOCN The [address] [address] Patient: Dale Diaz Patient Address: [address] [place] [address] [place] [address] Preferred Gender: male Date of : 1980 Type of Stoma: End Descending Colostomy Diagnosis: Constipation K59.0 OSTOMY SUPPLY ORDER FORM One Piece Ostomy Pouch Item Type: [employer]oplast Post-op pouch with a window #54795 30 day use - 2 Boxes Coloplast SenSura [place] MAXI Drainable Pouch with Soft Outlet Transparent Cut-to-fit 4 #66494 30 day use - 1 Box Yucaipa Hollihesive #1893 30 day use - 2 Boxes Procare Abdominal binder (62 -74 ) #[id number] 30 day use - 2 Binders OR Procare Abdominal binder (45 -62 ) #[id number] 30 day use - 2 Binders Refills: 11 Attending Physician: Dr. Leavitt For immediate authorization, please contact the physician s office. [facility] Nurse: VALERIANO Peters, OCN SIGNATURE: Cassie Cui RN PATIENT NAME: Dale Diaz DATE: June 15, 2022 TIME: 3:34 PM CONTACT #: [phone] documented in this encounter [facility] 06-15-2022 Note HNO ID: [id number] Author: Cassie Cui RN Service: ? Author Type: Registered Nurse Type: Progress Notes Filed: 06/30/2022 4:35 PM Note Text: The [address] [address] Patient: Dale Diaz Patient Address: [address] [place] [address] [place] [address] Preferred Gender: male Date of : 1980 Type of Stoma: End Descending Colostomy Diagnosis: Constipation K59.0 OSTOMY SUPPLY ORDER FORM Coloplast SenSura [place] MAXI Drainable Pouch with Soft Outlet Transparent Cut-to-fit 4 #36799 30 day use - 1 Box Coloplast Bed Drainage Bag #13040 30 day use-2 bags Practice Consultant #[id number] 30 day use 1 Cabin Agent Yucaipa Hollihesive #2319 30 day use - 2 Boxes Procare Abdominal binder (62 -74 ) #[id number] 30 day use - 2 Binders OR Procare Abdominal binder (45 -62 ) #[id number] 30 day use - 2 Binders Refills: 11 Attending Physician: Dr. Leavitt For immediate authorization, please contact the physician?s office. [facility] Nurse: VALERIANO Peters, CWOCN Addendum by: VALERIANO Virgen, CWOCN SIGNATURE: Cassie Cui RN PATIENT NAME: Dale Diaz DATE: June 15, 2022 TIME: 3:34 PM CONTACT #: [phone] [facility] 05-06-2022 Note HNO ID: [id number] Author: Yola Leavitt MD Service: ? Author [...] 2014. He has not been seen at [facility] since 2019 when he came for parastomal [...] visit. Either the patient or their legal telephone sales representative has been informed of the risks and benefits of -- and alternatives to -- treatment through a remote evaluation and consents to proceed with the evaluation remotely. Risk of morbidity, mortality and/or complications of treatment plan: moderate I spent a total of 36 minutes on the date of the service which included preparing to see the patient and [id number] patient care. [facility] 05-06-2022 History of Presen t illness Narrative [...] 2014. He has not been seen at [facility] since 2019 when he came for parastomal [...] included preparing to see the patient and [id number] patient care. documented in this encounter [facility] 04-14-2022 Miscellaneous Notes Called and spoke with [...] see what could be done about this,. [phone] Ashly (mom) documented in this encounter [facility] 04-14-2022 Miscellaneous Notes The patients mom stated that she can get into mychart. documented in this encounter [facility] documented as of this encounter (statuses as of 04/14/2022) [facility] History of Past illness Narrative* Problem Noted [...] to goal rate - finishing reglan 10mg [id number] for 24 hours today - monitor ostomy [...] of this encounter (statuses as of 04/14/2022) [facility] History of Past illness Narrative* Problem Noted [...] latter does not explain HGB drop. - Starbuck removed - BP stable - MAP goal [...] to goal rate - finishing reglan 10mg [id number] for 24 hours today - monitor ostomy [...] of this encounter (statuses as of 05/08/2022) [facility] History of Past illness Narrative* Problem Noted [...] to goal rate - finishing reglan 10mg [id number] for 24 hours today - monitor ostomy [...] of this encounter (statuses as of 06/16/2022) [facility] History of Past illness Narrative* Problem Noted [...] latter does not explain HGB drop. - Starbuck removed - BP stable - MAP goal [...] to goal rate - finishing reglan 10mg [id number] for 24 hours today - monitor ostomy [...] of this encounter (statuses as of 07/01/2022) [facility] Diagnosis Functional disorder of stomach- Primary Unspecified functional disorder of stomach [facility] Diagnosis 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 Attention to colostomy documented in this encounter [facility] Advance Directives No Advanced Directives Records FoundLatest [...] or prosecute any alcohol or drug abuse patient.[facility] the event this information is protected by the Federal Confidentiality of Alcohol and Drug Abuse Patient Records regulations: The Federal rules restrict any use of the information to criminally investigate or prosecute any alcohol or drug abuse patient.[facility] Administration[facility] the event this information is protected by the Federal Confidentiality of Alcohol and Drug Abuse Patient Records regulations: The Federal rules restrict any use of the information to criminally investigate or prosecute any alcohol or drug abuse patient.[facility] AdministrationIn the event this information is protected by the Federal Confidentiality of Alcohol and Drug Abuse Patient Records regulations: The Federal rules restrict any use of the information to criminally investigate or prosecute any alcohol or drug abuse patient.[facility] Administration[facility] the event this information is protected by the Federal Confidentiality of Alcohol and Drug Abuse Patient Records regulations: The Federal rules restrict any use of the information to criminally investigate or prosecute any alcohol or drug abuse patient.[facility] Reason for Visit (unrecogniz ed section and content) Reason Comments Patient Update Reason Comments Follow Up Reason Comments Stoma Consult Care Teams (unrecognized sec tion and content) Pipeman Relationship Specialty Start Date End Date Chente Perkins MD [address] [facility] [place], [place] [id number] PCP - General 06/03/00 [facility] 05/19/18 Pipeman Relationship Specialty Start Date End Date Chente Perkins MD [address] [place] [address] PCP - General 06/03/00 [facility] 05/19/18 Pipeman Relationship Specialty Start Date End Date Chente Perkins MD [address], [place] [id number] PCP - General 06/03/00 [facility] 05/19/18 (unrecognized sect ion and [...] BE BASED ON THE PRIMARY CLINICAL RECORDS. [facility] [employer] [facility]. provides no warranty or guarantee of the accuracy or completeness of information in this document.
--- OUTSIDE RECORDS SUMMARY | 2023-03-23 17:35 | XMS RPT_ITS | CCD ---
Author Name Unknown Address [address] [place] [address] Organization [facility] Care Team Providers Care Helpdesk Analyst Name Role Phone Aurora VARGAS, Luis Cooley Unavailable Betty Chowdhury Unavailable Unavailable RE Angela, Bella Cooley Unavailable Unavailgalo Waite MD, [place] S Unavailable Marco KNITTER OPERATOR, Chente Unavailable Betty Chowdhury Unavailable Unavailable Betty Chowdhury Unavailable Unavailable Chente Perkins MD Primary Care Provider CHENTE PERKINS Primary Care Unavailable Yola LEAVITT Attending Unavailable CHENTE PERKINS Primary Care Unavailable Allergies Allergy Classification Reported Allergen(s) Allergy Type Date of Onset Reaction(s) Facility (16 sources) acetaminophen / codeine drug allergy 07-04-19 15 hallucinations [facility] Work Phone: [phone] (8 sources) cisapride drug allergy 07-04-19 15 [facility] Work Phone: [phone] (8 sources) codeine drug allergy 07-04-19 15 [facility] Work Phone: [phone] (14 sources) Dust; Translations: [DUST] allergy to substance 07-04-19 15 [facility] Work Phone: [phone] (8 sources) metroNIDAZOLE drug allergy 07-04-19 15 [facility] Work Phone: [phone] (14 sources) morphine; Translations: [ASTRAMORPH] allergy to substance 07-04-19 15 hallucinations [facility] Work Phone: [phone] (12 sources) morphine; Translations: [MORPHINE] drug allergy 06-23-19 06 Other: See Comments [facility] Work Phone: (14 sources) vancomycin; Translations: [VANCOMYCIN HCL] drug allergy 01-08-20 16 [facility] Work Phone: (6 sources) Cisapride; Translations: [PROPULSID] Drug Allergy 02-08-20 12 [facility] (6 sources) Codeine; Translations: [CODEINE] Drug Allergy 06-23-19 06 Other: See Comments [facility] Work Phone: (6 sources) metroNIDAZOLE; Translations: [METRONIDAZOLE HCL] Drug Allergy 05-09-19 15 [facility] Work Phone: Medications Completed/Discontinued Medications Medication [...] (5 sources) Drug therapy finding; Translations: [Other predatory animal exterminator (current) drug therapy] Onset: 5 02-17-2021 Episodic [...] 09:39-0400 BMI (Body Mass Index) 30.27 kg/m2 [facility] Work Phone: 08-28-2016 09:39-0400 BP Diastolic 62 mm[Hg] [facility] Work Phone: 08-28-2016 09:39-0400 BP Systolic 106 mm[Hg] [facility] Work Phone: 08-28-2016 09:39-0400 Height 152.4 cm [facility] Work Phone: 08-28-2016 09:39-0400 Pulse (Heart Rate) 78 /min [facility] Work Phone: 08-28-2016 09:39-0400 Respiratory Rate 12 /min [facility] Work Phone: 08-28-2016 09:39-0400 Weight 70.31 kg Betty Chowdhury [facility] Work Phone: 06-15-2016 11:14-0400 BP Diastolic 87 mm[Hg] Chente Lara KNITTER OPERATOR [facility] Work Phone: 06-15-2016 11:14-0400 BP Systolic 111 mm[Hg] Chente Lara KNITTER OPERATOR [facility] Work Phone: 06-15-2016 11:14-0400 Pulse (Heart Rate) 60 /min Chente Lara KNITTER OPERATOR [facility] Work Phone: 06-15-2016 11:14-0400 Respiratory Rate 16 /min Chente Lara KNITTER OPERATOR [facility] Work Phone: 01-08-2016 09:55-0500 Body Temperature 97.2 [degF] Chente Lara KNITTER OPERATOR [facility] Work Phone: Encounters Encounter Date [...] Author Start: 02-22-2022 DEPRESSION ASSESSMENT DEPRESSION ASSESSMENT [facility] Start: 10-23-2021 Influenza vaccination INFLUENZA (#1) [facility] Start: 10-15-2018 Hemoglobin A1c/Hemoglobin.total in Blood HBA1C [facility] Start: 08-27-2017 End: 08-27-2017 Appointment Appointment [facility] Work Phone: Start: 08-28-2016 End: 08-28-2016 Appointment Appointment [facility] Work Phone: Start: 08-28-2016 End: 08-28-2016 *BMP *BMP [facility] Work Phone: Start: 08-28-2016 End: 08-28-2016 BNP *Brain Natriuretic Peptide BNP [facility] Work Phone: Start: 08-28-2016 End: 08-28-2016 GENERAL SURGERY PHYSICIAN ASSISTANT GENERAL SURGERY PHYSICIAN ASSISTANT [facility] Work Phone: Start: 08-28-2016 End: 08-28-2016 Follow Up Appt 1 year Follow Up Appt 1 year [facility] Work Phone: Start: 05-27-2016 End: 05-28-2016 aPTT *PTT-Partial Thromboplastin Time [facility] Work Phone: Start: 05-27-2016 End: 05-28-2016 CBC W Auto Differential panel - Blood *CBC [facility] Work Phone: Start: 05-27-2016 End: 05-28-2016 Coagulation factor induced.INR assay in platelet poor plasma *PT/INR [facility] Work Phone: Start: 01-08-2016 End: 01-08-2016 Bacterica wound culture *Culture and Sensitivity, wound [facility] Work Phone: Start: 04-12-2012 Hepatitis B screening URINE ALBUMIN:CREATININE RATIO [facility] Start: 04-08-2012 Hepatitis B surface antibody level LDL CHOLESTEROL [facility] Start: 04-08-2012 PNEUMOCOCCAL (2 - PCV) PNEUMOCOCCAL (2 - PCV) [facility] Start: 2001 Urine microalbumin profile DTAP,TDAP,TD (1 - Tdap) [facility] Start: 02-01-2000 ANNUAL PCP TEAM CHRONIC DISEASE VISIT ANNUAL PCP TEAM CHRONIC DISEASE VISIT [facility] Start: 02-01-2000 HIV SCREENING HIV SCREENING [facility] Start: 02-01-1992 3 comp foot exam completed DIABETIC FOOT EXAM [facility] Start: 02-01-1992 Hepatitis C antibody, confirmatory test DILATED RETINAL EXAM [facility] Start: 1982 COVID-19 VACCINE (#1) COVID-19 VACCINE (#1) [facility] Start: 1982 HEPATITIS B (1 of 3 - 3-dose series) HEPATITIS B (1 of 3 - 3-dose series) [facility] Immunizations Immunization Date Immunization Notes Care Provider Fa ardha 11-08-2014 influenza, injectabl e, quadrivalent, preservative free LELIA Leavitt MD Work Phone: [facility] 12-14-2012 influenza virus vacc ine, unspecified formulation LELIA Leavitt MD Work Phone: [facility] 04-08-2011 influenza virus vacc ine, unspecified formulation LELIA Leavitt MD Work Phone: [facility] 04-08-2011 pneumococcal polysaccharide vaccine, 23 valent LELIA Leavitt MD Work Phone: [facility] Payers Date Payer Category Payer Medicare MEDICARE MEDICAR E A AND B [id number] 2020-Present [phone] [place] [address] Medicare [id number] 2020 Medicare [id number] 2018 Medicaid MEDICAID [facility] MEDICAID [id number] 2018-Present [phone] [address] [place] [address] Medicaid [id number] 2018 Medicaid [id number] 2018 Unknown [employer] BLUE ACCE SS PPO [id number] 2018-Present [phone] [address] [place] [address] PPO [id number] 2018 Unknown [id number] Social History Date Type Detail Facility Tobacco smoking status NHIS Never smoked tobacco [facility] Start: 12-27-2019 Alcohol intake Not Asked Luis Daniel iraheta [facility] Start: 1980 Sex Assigned At Not on file C [facility] Medical Equipment Procedure Code Equipment Code Equipment Origin al Text Equipment Identifier Dates Catheter Ascenda 4fr .5mm Silicone 114cm 86cm Intrathecal 2 Piece Connector - [id number] Start: 04-05-2018 Pump Int Thcl 40 ml Snchr 2 Drg - [id number] Start: 03-08-2012 Pump Synchromed Ii 87.5in Titanium Silicone 26in Intrathecal [place] - [id number] Start: 04-05-2018 Tube Shiley 10.8 mm 6.4mm 6 76mm Tracheostomy Cuff Low Pressure Fenestrate - [id number] Start: 04-20-2018 Clinical Notes 07-15-2018 to 06-30-2022 Telephone Encounter - Chichi Fowler RN - 06/30/2022 4:42 PM EDTTelephone Encounter - Amber Monreal RN - 06/30/2022 3:53 PM EDSol Cui RN - 06/15/2022 5:51 PM EDT Note Date & Type Note Facility 06-30-2022 Miscellaneous Notes [facility] nursing returned patient's mother Yue message regarding [...] e-mail. Mother will give order numbers to [facility]. Also recommended can apply stomahesive powder on mucosa. Advised maybe irritation from mucosa rubbing on pouch d/t prolapse vs the stool. Mom agreeable. Time spent: 30 minutes Chichi Fowler, RN, BSN, CWOCN [phone] Pt's mother called. She would like to discuss pt's stoma prolapse. documented in this encounter [facility] 06-15-2022 Note HNO ID: [id number] Author: Cassie Cui RN Service: ? Author [...] Requested samples from [employer] for [employer]oplast SenSura [place] MAXI Drainable pouch with soft outlet #[id number]. Order form provided. Also discussed use of [...] hour 15 minutes Cassie BAL, RN, CWOCN [facility] 06-15-2022 History of Presen t illness [...] Requested samples from [employer] for Coloplast [employer] [place] MAXI Drainable pouch with soft outlet #[id number]. Order form provided. Also discussed use of [...] film. Pouching System: After reducing prolapse, applied [place] Hollihesive long wedges to peristomal skin, Coloplast post-op pouch with window, Stomahesive paste, Mefix tape to frame Wear Time: 3-4 days goal Time Increment: 1 hour 15 minutes Cassie BAL, RN, CWOCN The [address] [address] Patient: Dale Diaz Patient Address: [address] [place] [address] [place] [address] Preferred Gender: male Date of : 1980 Type of Stoma: End Descending Colostomy Diagnosis: Constipation K59.0 OSTOMY SUPPLY ORDER FORM One Piece Ostomy Pouch Item Type: Coloplast Post-op pouch with a window #00590 30 day use - 2 Boxes Coloplast SenSura [place] MAXI Drainable Pouch with Soft Outlet Transparent Cut-to-fit 4 #74987 30 day use - 1 Box [place] Hollihesive #0994 30 day use - 2 Boxes Procare Abdominal binder (62 -74 ) #[id number] 30 day use - 2 Binders OR Procare Abdominal binder (45 -62 ) #[id number] 30 day use - 2 Binders Refills: 11 Attending Physician: Dr. Leavitt For immediate authorization, please contact the physician s office. [facility] Nurse: VALERIANO Peters, OCN SIGNATURE: Cassie Cui RN PATIENT NAME: Dale Diaz DATE: June 15, 2022 TIME: 3:34 PM CONTACT #: [phone] documented in this encounter [facility] 06-15-2022 Note HNO ID: [id number] Author: Cassie Cui RN Service: ? Author Type: Registered Nurse Type: Progress Notes Filed: 06/30/2022 4:35 PM Note Text: The [address] [address] Patient: Dale Diaz Patient Address: [address] [place] [address] [place] [address] Preferred Gender: male Date of : 1980 Type of Stoma: End Descending Colostomy Diagnosis: Constipation K59.0 OSTOMY SUPPLY ORDER FORM Coloplast SenSura [place] MAXI Drainable Pouch with Soft Outlet Transparent Cut-to-fit 4 #24196 30 day use - 1 Box Coloplast Bed Drainage Bag #81112 30 day use-2 bags Occupational Therapy Manager #1381 30 day use 1 Biblical Studies Professor Marion Hollihesive #1656 30 day use - 2 Boxes Procare Abdominal binder (62 -74 ) #[id number] 30 day use - 2 Binders OR Procare Abdominal binder (45 -62 ) #[id number] 30 day use - 2 Binders Refills: 11 Attending Physician: Dr. Leavitt For immediate authorization, please contact the physician?s office. [facility] Nurse: VALERIANO Peters, CWOCN Addendum by: VALERIANO Virgen, CWOCN SIGNATURE: Cassie Cui RN PATIENT NAME: Dale Diaz DATE: June 15, 2022 TIME: 3:34 PM CONTACT #: [phone] [facility] 05-06-2022 Note HNO ID: [id number] Author: Yola Leavitt MD Service: ? Author [...] 2014. He has not been seen at [facility] since 2019 when he came for [...] visit. Either the patient or their legal solar sales representative has been informed of the risks and benefits of -- and alternatives to -- treatment through a remote evaluation and consents to proceed with the evaluation remotely. Risk of morbidity, mortality and/or complications of treatment plan: moderate I spent a total of 36 minutes on the date of the service which included preparing to see the patient and [id number] patient care. [facility] 05-06-2022 History of Presen t illness [...] 2014. He has not been seen at [facility] since 2019 when he came for [...] included preparing to see the patient and [id number] patient care. documented in this encounter [facility] 04-14-2022 Miscellaneous Notes Called and spoke [...] see what could be done about this,. [phone] Ashly (mom) documented in this encounter [facility] 04-14-2022 Miscellaneous Notes The patients mom stated that she can get into mychart. documented in this encounter [facility] documented as of this encounter (statuses as of 04/14/2022) [facility] History of Past illness Narrative* Problem [...] to goal rate - finishing reglan 10mg [id number] for 24 hours today - monitor ostomy [...] of this encounter (statuses as of 04/14/2022) [facility] History of Past illness Narrative* Problem [...] latter does not explain HGB drop. - [place] removed - BP stable - MAP goal [...] to goal rate - finishing reglan 10mg [id number] for 24 hours today - monitor ostomy [...] of this encounter (statuses as of 05/08/2022) [facility] History of Past illness Narrative* Problem [...] to goal rate - finishing reglan 10mg [id number] for 24 hours today - monitor ostomy [...] of this encounter (statuses as of 06/16/2022) [facility] History of Past illness Narrative* Problem [...] latter does not explain HGB drop. - [place] removed - BP stable - MAP goal [...] to goal rate - finishing reglan 10mg [id number] for 24 hours today - monitor ostomy [...] of this encounter (statuses as of 07/01/2022) [facility] Functional disorder of stomach- Primary Unspecified functional disorder of stomach [facility] 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 Attention to colostomy documented in this encounter [facility] Advance Directives No Advanced Directives Records [...] or prosecute any alcohol or drug abuse patient.[facility] the event this information is protected by the Federal Confidentiality of Alcohol and Drug Abuse Patient Records regulations: The Federal rules restrict any use of the information to criminally investigate or prosecute any alcohol or drug abuse patient.[facility] the event this information is protected by the Federal Confidentiality of Alcohol and Drug Abuse Patient Records regulations: The Federal rules restrict any use of the information to criminally investigate or prosecute any alcohol or drug abuse patient.[facility] the event this information is protected by the Federal Confidentiality of Alcohol and Drug Abuse Patient Records regulations: The Federal rules restrict any use of the information to criminally investigate or prosecute any alcohol or drug abuse patient.[facility] the event this information is protected by the Federal Confidentiality of Alcohol and Drug Abuse Patient Records regulations: The Federal rules restrict any use of the information to criminally investigate or prosecute any alcohol or drug abuse patient.[facility] Reason for Visit (unrecogniz ed section and content) Reason Comments Patient Update Reason Comments Follow Up Reason Comments Stoma Consult Care Teams (unrecognized sec tion and content) Helpdesk Analyst Relationship Specialty Start Date End Date Chente Perkins MD [address] [facility] [place] [place] [id number] PCP - General 06/03/00 [facility] Community Resource 05/19/18 Helpdesk Analyst Relationship Specialty Start Date End Date Chente Perkins MD [address] [place] [address] PCP - General 06/03/00 [facility] 05/19/18 Helpdesk Analyst Relationship Specialty Start Date End Date Chente Perkins MD [address] [place], [place] [id number] PCP - General 06/03/00 [facility] Community Resource 05/19/18 (unrecognized sect ion [...] BE BASED ON THE PRIMARY CLINICAL RECORDS. [facility] [employer] [facility]. provides no warranty or guarantee of the accuracy or completeness of information in this document.
[2023-03-23] MEDS: 0.9% Normal Saline (1000mL) 1,000 ML 50 ML IV (18:00)
[2023-03-23] MEDS: Baclofen 10 MG Tablet 20 MG GT (18:01)
[2023-03-23] MEDS: GABAPENTIN 250 MG/5 ML SOLUTION 500 MG GT (18:12)
[2023-03-23] MEDS: ESOMEPRAZOLE MAGNESIUM 40 MG SUSPDR.PKT GT (21:26)
[2023-03-23] MEDS: Phenobarbital 20 MG/5 ML UDC 60 MG GT (21:26)
[2023-03-23] MEDS: Metoclopramide 10 MG/10 ML UDC GT (21:27)
[2023-03-23] MEDS: Acetaminophen 325 MG Tablet 650 MG PO (22:38)
[2023-03-24] VITALS (11 sets, daily range): BP systolic 87–150; BP diastolic 62–107; PULSE 50–88; RESP 12–21; TEMP 35.9–36.9; O2SAT 97–99
[2023-03-24] MEDS: Baclofen 10 MG Tablet 20 MG GT ×4 (00:07→17:42)
[2023-03-24] MEDS: GABAPENTIN 250 MG/5 ML SOLUTION 500 MG GT ×4 (00:08→17:44)
[2023-03-24] MEDS: Ampicillin/Sulbactam 3 GM in 0.9% Normal Saline (100mL MB+) 100 ML IV ×4 (00:08→17:47)
[2023-03-24 05:03] LABS: Absolute Lymphocyte Count 1.76 X10^3/uL (0.83-4.51); Absolute Neutrophil Count 4.3 X10^3/uL (2.0-7.7); Basophil# 0.02 X10^3/uL; Basophil% 0.3 % (0-1); Eosinophils% 2.9 % (0-5); Hematocrit 35.2 % (40-54); Hemoglobin 10.8 g/dL (13.0-16.5); Lymphocyte # 1.76 X10^3/ul (0.83-4.51); Lymphocyte % 25.6 % (19-41); Mean Corp Hgb Conc 30.7 g/dL (32-36); Mean Corpuscular Hgb 25.9 pg (27.0-32.0); Mean Corpuscular Volume 84.4 fL (80-94); Mean Platelet Vol. 10.4 fl (6.2-12.0); Monocyte# 0.61 X10^3/uL; Monocyte% 8.9 % (0-10); NRBC Flagged by Analyzer 0 % (0-5); Neutrophil # 4.27 X10^3/uL (2.7-7.7); Neutrophil % 62.2 % (47-70); Platelet Count 181 K/mm3 (150-450); RBC Distribution Width CV 14.9 % (11.6-14.6); Red Blood Count 4.17 M/mm3 (4.6-6.2); White Blood Count 6.9 K/mm3 (4.4-11.0)
[2023-03-24 05:21] LABS: ALB/GLOB Ratio 0.7 RATIO (0.9-2.4); AST(SGOT) 14 U/L (15-37); Alanine Aminotransfer ALT/SGPT 25 U/L (16-61); Albumin, Serum 3.1 g/dL (3.2-5.0); Alkaline Phosphatase 153 U/L (45-117); Anion Gap 2 (5-15); BUN 18 mg/dL (7-18); BUN/Creat Ratio 74.7 RATIO (10-20); Calcium,Total 8.2 mg/dL (8.5-10.1); Chloride 106 mmol/L (98-107); Creatinine, Serum 0.24 mg/dL (0.70-1.30); EST Glomerular Filtration Rate 452 mL/min (>60); Est Glom Filt Rate - Afr Amer 547 mL/min (>60); Estimated Creatinine Clearance 351.31 ml/min; Globulin 4.4 g/dL (2.2-4.2); Glucose 91 mg/dL (74-106); Potassium 3.6 mmol/L (3.5-5.1); Protein, Total 7.5 g/dL (6.4-8.2); Sodium Level 137 mmol/L (136-145)
[2023-03-24 05:25] LABS: Lactic Acid 0.5 mmol/L (0.4-1.9)
[2023-03-24] MEDS: 0.9% Saline Lock 10 ML Syringe IV (05:36)
[2023-03-24] MEDS: Acetaminophen 325 MG Tablet 650 MG PO (05:37)
[2023-03-24] MEDS: Ipratropium/Albuterol Sulfate 3 ML AMPUL.NEB INHALATION ×3 (06:48→19:09)
--- NOTE | 2023-03-24 08:06 | CON.PCM.CC_ITS ---
Assessment & Plan Assessment/Plan (1) Chronic respiratory failure: QUALIFIERS: Respiratory failure complication: hypoxia and hypercapnia Qualified Code(s): J96.11 - Chronic respiratory failure with hypoxia; J96.12 - Chronic respiratory failure with hypercapnia (2) Cerebral palsy: QUALIFIERS: Cerebral palsy type: spastic quadriplegic Qualified Code(s): G80.0 - Spastic quadriplegic cerebral palsy (3) Emesis, persistent: PLAN: Plan RECOMMENDATIONS: 1. Attempt resumption of baseline care (HME during the day) 2. Resume tube feeds slowly and evaluate for emesis 3. Okay to continue with baseline medications 4. Discontinue antibiotics if patient does well 5. Potential discharge later today if patient tolerates normal routine IMPRESSIONS: 1. Acute emesis with possible aspiration in the setting of chronic respiratory failure Concern for aspiration leading to worsening in chronic respiratory failure. Patient appears to have normalized at this time. Patient has responded well to Zofran and no emesis has been noted. Patient currently on aspiration antibiotics. Would resume patient's normal routine. If patient is able to tolerate this during the day, potential discharge later today would be appropriate. Doubt patient would require antibiotics given lack of hypoxia or increased secretions. 2. Cerebral palsy with spastic quadriplegia/seizure disorder/GERD/anemia/history of candidal esophagitis Complicates care, management, recovery and prognosis. If patient starts to have repeated emesis, evaluation for possible UTI versus recurrence of candidal esophagitis may be necessary. No need to hold baseline medications. Patient's blood counts are appropriate at this time, so no transfusions would be indicated. HPI Consult Data Date of Consult: 03/24/23 HPI Narrative HPI Narrative: KRISS MICHAEL is a 43 M, with past medical history listed below and well- known to me from the outpatient office, who presents to [facility] on 03/23/2023 secondary to recurrent episodes of emesis and concerns of aspiration. Patient reportedly was receiving trach care and had multiple episodes of emesis. Tracheal suctioning brought only back a scant amount of clear fluid. Patient had reportedly no sick contacts and had not had any p rodromal symptoms. Patient's mother is reported the patient will occasionally have some decreased urine output, but has not noticed any foul orders or other issues. Patient's colostomy has been functioning appropriately. Patient has cerebral palsy and is nonverbal, so all information comes from the patient's mother. In the ER, patient was afebrile, but tachycardic at 149 bpm. Patient was requ iring mechanical ventilation, but uses an HME at baseline. Laboratory data showed a white blood cell count of 13, hemoglobin of 13.1 and platelet count of 229. Coagulation studies were within normal limits. Chemistry showed an elevated bicarbonate of 26, but otherwise was grossly unremarkable except for a glucose of 123. Alkaline phosphatase was slightly elevated at 169 and lactate was noted to be 5.3. Chest x-ray showed no change compared to previous. Given concerns for aspiration, patient was initiated on antibiotics and admitted to the floor for further evaluation. Since being admitted to the floor, patient's mother reports that she feels he is back to baseline. Patient has been tolerating mechanical ventilation overnight without issues. No significant change in secretions or fevers been noted. Patient continues to have normal ostomy output. Discussion with the mother states the patient did not have any prodromal symptoms. Patient has not had any exposure to people with gastroenteritis. There has been no significant change in medications or regimen. Patient's mother believes that he is interacting at his baseline and actively tracking people around the room. [facility] Medical History Acute dyspnea Anemia in chronic illness Anxiety Cerebral palsy Cerebral palsy Chronic respiratory failure Chronic respiratory failure with hypoxia Colostomy prolapse Debility Edema GERD (gastroesophageal reflux disease) History of seizure disorder Iron deficiency anemia Non-smoker Nonrheumatic mitral valve prolapse Obesity On home oxygen therapy Pseudomonas pneumonia Pulmonary embolism Pulmonary embolism on left (06/14/19) Redundant colon Seizures Thrombocytopenia Tracheostomy in place Upper GI bleeding (04/2020) Home Medications phenobarbital 20 mg/5 mL (4 mg/mL) oral elixir 60 mg G-tube 0830,2100 SEIZURES 02/19/17 [History Last Taken 03/23/23] metoclopramide HCl 5 mg/5 mL oral solution 10 mg feeding tube 0830,1600,2100 STOMACH 09/16/18 [History Last Taken 03/23/23] Cough Assist 1 dose .Route .MEDSUPPLY assist in clearing secretions 12/25/18 [History Last Taken 03/23/23] oxygen concentrator 1 dose .Route .MEDSUPPLY second unit, 4 LPM cont all modalities 12/25/18 [History Last Taken Unknown] gabapentin 250 mg/5 mL oral solution 500 mg G-tube 0000,0600,1200,1800 SEIZURES 09/26/19 [History Last Taken 03/23/23] albuterol sulfate 2.5 mg/3 mL (0.083 %) solution for nebulization 2.5 mg inhalation Q4H PRN Sob &/Or Wheezing 11/27/20 [History Last Taken Unknown] lactose-reduced food with fiber 0.06 gram-1.2 kcal/mL oral liquid 1,000 ml G- tube DAILY NUTRITION 11/27/20 [History Last Taken 03/23/23] plecanatide 3 mg tablet 3 mg G-tube 0830 BOWELS 11/27/20 [History Last Taken 03/23/23] doxazosin 2 mg tablet 2 mg PO 0830 BLOOD PRESSURE 11/30/21 [History Last Taken 03/23/23] cholecalciferol (vitamin D3) 10 mcg/mL (400 unit/mL) oral drops 15 mcg feeding tube 0830 SUPPLEMENT 03/24/22 [History Last Taken 03/23/23] guaifenesin 200 mg/5 mL oral liquid 200 mg feeding tube 0830 PRN COUGH/CONGESTION 03/24/22 [History Last Taken Unknown] acetaminophen 650 mg/20.3 mL oral suspension 650 mg feeding tube 0000,0600,1200, 1800 PRN PAIN 10/24/22 [History Last Taken Unknown] aluminum-mag hydroxide-simethicone 200 mg-200 mg-20 mg/5 mL oral susp 5 ml PO 0000,0600,1200,1800 PRN ANTACID 10/24/22 [History Last Taken Unknown] cetirizine 1 mg/mL oral solution 10 mg feeding tube 1600 ALLERGIES 10/24/22 [History Last Taken 03/22/23] baclofen 20 mg tablet 20 mg feeding tube Q6H MUSCLE SPASMS 12/10/22 [History Last Taken 03/23/23] ondansetron 4 mg disintegrating tablet 4 mg PO Q8H PRN NAUSEA/VOMITING #30 tabs 12/13/22 [Rx Last Taken Unknown] lorazepam 2 mg/mL injection solution (Ativan) 1 mg IM DAILY PRN AGITATION 03/02/23 [History Last Taken Unknown] montelukast 4 mg oral granules in packet (Singulair) 4 mg PO DAILY ASTHMA #30 ea 03/02/23 [Rx Last Taken Unknown] esomeprazole magnesium 40 mg granules delayed release for susp (Nexium Packet) 40 mg G-tube BID ACID REFLUX 03/23/23 [History Last Taken 03/23/23] ipratropium 0.5 mg-albuterol 3 mg (2.5 mg base)/3 mL nebulization soln 3 ml inhalation Q4H PRN SOB &/OR WHEEZING 03/23/23 [History Last Taken Unknown] Allergy/AdvReac Type Severity Reaction Status Date / Time chlorhexidine Allergy Rash Verified 03/02/23 13:16 cisapride monohydrate Allergy Rash Verified 03/02/23 13:16 [From Propulsid] house dust Allergy NEEDS Verified 03/02/23 13:16 FOLLOW-UP codeine AdvReac hallucinati Verified 03/02/23 13:16 ons metronidazole [From Flagyl] AdvReac Rash Verified 03/02/23 13:16 morphine AdvReac Hallucinati Verified 03/02/23 13:16 ons Family History Mother Hepatitis C Hypertension HIV disease Father H/O heart artery stent CAD (coronary artery disease) Atrial fibrillation Hypertension Esophageal cancer Surgical History Colostomy in place Heel cord lengthening History of colostomy History of eye surgery History of gastrostomy tube placement History of open reduction and internal fixation (ORIF) procedure History of soft tissue release Status post insertion of intrathecal baclofen pump Social History household members: family housing: house current occupational status: disabled Smoking Status: Never smoker alcohol intake: never substance use type: does not use caffeine: No ROS ROS Narrative Per patient's mother, review of systems otherwise negative from a constitutional, HEENT, respiratory, cardiovascular, GI, genitourinary, musculoskeletal, skin, neurologic, psychiatric and hematologic system unless stated above. Physical Exam Const alert Constitutional Narrative: Alert, obese, nonverbal, lying comfortably in bed, no acute distress. HEENT normocephalic, head/scalp atraumatic and moist oral mucous membranes HEENT Narrative: Patient on mechanical ventilation during my evaluation. Macroglossia with protrusion (baseline) Eyes PERRL, EOMs intact bilaterally and conjunctivae normal Neck full ROM, no lymphadenopathy and supple Neck Narrative: Trach is clean, dry and intact. Lymph Lymphatic: no lymphadenopathy noted Chest inspection of chest normal Resp normal respiratory effort and no use of accessory muscles Effort and Inspection: Negative for actively coughing or uses accessory muscles Auscultation: Negative for rales, rhonchi or wheezes Cardio regular rate, regular rhythm, no murmurs and peripheral pulses 2+ throughout GI GI Narrative: Colostomy in place without issue, G-tube in place without issue. Patient's abdomen soft, nontender, nondistended. Significant bowel protrusion noted out of colostomy, but appears pink and healthy Back/Spine normal ROM Extremity normal to inspection, full ROM and no pedal edema Extremity Narrative: Significant contractions noted Skin no rashes or lesions noted Neuro Neuro Narrative: Appears to be at baseline neurologic status Medical Records Data Attestation: I reviewed the patient's medical records Lab / Micro Data Attestation: I reviewed the patient's lab results. 03/24/23 04:55 03/24/23 04:55 Labs: Laboratory Results - last 24 hr 03/23/23 12:35: WBC 13.0 H, RBC 5.07, Hgb 13.1, Hct 42.2, MCV 83.2, MCH 25.8 L, MCHC 31.0 L, RDW Std Deviation 45.1 H, RDW Coeff of Emilee 14.8 H, Plt Count 229, MPV 10.1, Immature Gran % (Auto) 0.400, Neut % (Auto) 70.6 H, Lymph % (Auto) 21.7, [place] % (Auto) 5.1, Eos % (Auto) 2.0, Baso % (Auto) 0.2, Absolute Neuts (auto) 9.1 H, Absolute Lymphs (auto) 2.81, Nucleated RBC % 0, PT 12.9, INR 1.0, APTT 31.1, Lactic Acid 5.3 H* 03/23/23 13:23: Sodium 135 L, Potassium 3.7, Chloride 104, Carbon Dioxide 26.0, Anion Gap 5, BUN 21 H, Creatinine 0.46 L, Estim Creat Clear Calc 186.40, Est GFR (MDRD) Af Amer 262, Est GFR (MDRD) Non-Af 217, BUN/Creatinine Ratio 46.1 H, Glucose 123 H, Calcium 8.8, Total Bilirubin 0.20, AST 16, ALT 29, Alkaline Phosphatase 169 H, Total Protein 8.8 H, Albumin 3.6, Globulin 5.2 H, Albumin/Globulin Ratio 0.7 L 03/24/23 04:55: WBC 6.9, RBC 4.17 L, Hgb 10.8 L, Hct 35.2 L, MCV 84.4, MCH 25.9 L, MCHC 30.7 L, RDW Std Deviation 46.0 H, RDW Coeff of Emilee 14.9 H, Plt Count 181, MPV 10.4, Immature Gran % (Auto) 0.100, Neut % (Auto) 62.2, Lymph % (Auto) 25.6, [place] % (Auto) 8.9, Eos % (Auto) 2.9, Baso % (Auto) 0.3, Absolute Neuts (auto) 4.3, Absolute Lymphs (auto) 1.76, Nucleated RBC % 0, Sodium 137, Potassium 3.6, Chloride 106, Carbon Dioxide 29.0, Anion Gap 2 L, BUN 18, Creatinine 0.24 L, Estim Creat Clear Calc 351.31, Est GFR (MDRD) Af Amer 547, Est GFR (MDRD) Non-Af 452, BUN/Creatinine Ratio 74.7 H, Glucose 91, Lactic Acid 0.5, Calcium 8.2 L, Total Bilirubin 0.30, AST 14 L, ALT 25, Alkaline Phosphatase 153 H, Total Protein 7.5, Albumin 3.1 L, Globulin 4.4 H, Albumin/Globulin Ratio 0.7 L Micro: Microbiology 03/23/23 12:55 Mucosa - Nose Respiratory Panel (PCR) - Final Imaging Radiology Impression Chest X-Ray 03/23/23 13:22 IMPRESSION: Limited inspiratory effort due to patient''s condition. There has been essentially no change prior study. Electronically Signed: Matti Greer MD at 13:40 EST , Charges/Coding Visit Charges Inpatient E&M: 00496 Init Hosp L2
[2023-03-24] MEDS: Doxazosin 1 MG Tablet 2 MG PO (09:12)
[2023-03-24] MEDS: Enoxaparin 40 MG/0.4 ML Syringe SC (09:14)
[2023-03-24] MEDS: Montelukast 10 MG Tablet 5 MG GT (09:15)
[2023-03-24] MEDS: ESOMEPRAZOLE MAGNESIUM 40 MG SUSPDR.PKT GT ×2 (09:15→16:12)
[2023-03-24] MEDS: PLECANATIDE 3 MG TABLET GT (09:16)
[2023-03-24] MEDS: Metoclopramide 10 MG/10 ML UDC GT ×3 (09:16→20:53)
[2023-03-24] MEDS: Phenobarbital 20 MG/5 ML UDC 60 MG GT ×2 (09:26→20:55)
[2023-03-24] MEDS: Jevity 1.5 1,000 ML 10 ML GT (11:26)
--- NOTE | 2023-03-24 12:05 | CHAPLAIN ---
Type of Pastoral Visit _x__ Initial Visit ___ Follow-up Visit ___ On-call Visit ___ General Patient Visit ___ Spiritual Assessment ___ Family Conference ___ Bereavement ___ Rapid Response ___ Code Blue ___ Other (describe below) Pastoral Care Referral From ___ Patient _x__ Family ___ Nurse ___ Physician ___ Supervisor [employer] Service ___ Mop Handle Assembler ___ Other (describe below) Sacrament/Intervention ___ Active listening ___ Anointing ___ Rastafarian ___ Bereavement ___ Communion ___ Sandra exploration ___ ___ Life review _x__ Prayer ___ Reconciliation ___ Sacrament of Sick _x__ Supportive presence ___ Wedding ___ Other (describe below) Pastoral Comments patient is sound asleep and mother is recliner in the chair at bedside; mother states that patient had not slept last night and is now glad that he can be sleeping; offer of support to mother; she declines any needs except for more sleep for herself; mother does request that a prayer be spoken for patient; prayer is given
--- NOTE | 2023-03-24 13:30 | CASEMGMT ---
RE GUADALUPE assessment: RE GUADALUPE to pt's room for initial transition planning/care coordination assessment. Pt's mom, Matteo Diaz, dad, Benigno , and another family member @ bedside. RE GUADALUPE introduced self and role at [facility] and they voice understanding at this time. Care providers, pharmacy, and demographics verified at this time. PCP: Dr Conn Specialists: Dr Waite, cardio; Dr Monsalve, pulm; Dr Henderson, ENT; Dr Barth, eye; Dr Najera--GI; Dr Chen-pain mgnt Preferred Pharmacy: [facility] @ discharge. Insurance: [employer], [employer] Prescription Benefit: Yes LNOK: Matteo Diaz, mother; Michael Pelaez Sprosty III, father Living Arrangements/HHC: Pt lives with parents in 1 story home w/ramp entrance and pt has nurses thru [facility] ([facility] HHC: SN and also gets OT, and ST. Pt also has aides from [facility] thru the [facility] of (currently 3 days/week for 4 hrs and 3 NOC's/wk from 10 PM to 5 or 6 AM). and private duty aides (2 days/wk for 2-4 hrs). These above hours do vary. Parents state pt qualifies for 24/7 care, but d/t staffing issues, this is not available. Parents and another family member covers all other shifts/hours that staff is not available. Parents would like LAUREN w/N. LAUREN order placed and Jen, space planner assistant associate full professor aware and states will send resumption referral via Careport. Transportation: Mother states pt will need ambulance transport at discharge. DME: Pt has the following DME: feeding pump (gets supplies from [facility]), colostomy ([facility] gets supplies for this), W/C, hospital bed w/double side rails, ramp, cough assist device, ceiling tract, elevator to basement, estefany lift, Eye gaze communication device, and ventilator thru [facility]. They also have a back-up ventilator. Pt uses ventilator @ HS and occasionally during the day. He has O2 bleed-in through the vent that he uses @ HS @ 4-5 L/M and also uses the O2 during the day thru HME device @ 3 L/M. They do have 2 generators in the home. Call placed to [facility]. Current O2 orders are 2 l/m continuous and bleed-in through vent. Parents state no need for any further DME at this time. Parents state no concerns with going home at time of discharge. Pt is disabled. Parents state no further concerns/needs at this time. Goal: Home w/ family and resumption of [facility] HHC: SN, OT, and ST. Also resumption of aides thru [employer] @ [facility] and private-duty aides. Janice LEVINN RN CM
--- NOTE | 2023-03-24 16:10 | CASEMGMT ---
Discharge Planning Resumption of HH referral sent via [facility]Port to [facility]. Jen Ibrahim, Discharge Planning Asst.
[2023-03-24] MEDS: CETIRIZINE HCL 1 MG/ML 10 MG GT (16:11)
[2023-03-24] MEDS: 0.9% Normal Saline (500mL Bag) 500 ML 150 ML IV (17:28)
--- NOTE | 2023-03-24 18:09 | PCM.PN.HOSP ---
Reason for Visit Reason for Visit: Diagnoses Acidosis, unspecified (03/23/23) Spastic quadriplegic cerebral palsy (03/23/23) Acute respiratory failure with hypoxia (03/23/23) Chronic respiratory failure with hypoxia (03/23/23) Chronic respiratory failure with hypercapnia (03/23/23) Cyclical vomiting syndrome unrelated to migraine (03/23/23) Subjective Subjective Patient was seen and examined today, I talked to the patient's mother and father who are at the bedside and also discussed the case with critical care. Critical care does not feel the patient has aspiration pneumonia and in fact does not feel the patient had aspiration. His blood pressure this afternoon has been in the 80s systolic and I elected to give the patient some fluid over 3 hours. Patient remains on broad-spectrum antibiotics for now, patient's white blood cell count today was 6.9, his tube feedings will be resumed at a low rate. Objective Data Objective Data Vital Signs: Vital Signs Temp Pulse Resp BP Pulse Ox O2 Del Method O2 Flow Rate 97.0 F L 54 L 12 110/73 99 Nasal Cannula 4 03/24/23 17:38 03/24/23 17:42 03/24/23 17:38 03/24/23 17:42 03/24/23 17:38 03/24/23 17:38 03/24/23 17:38 Oxygen Flow Rate (L/min) 4 Oxygen Delivery Method Nasal Cannula Weight: 78.3 kg Body Mass Index (BMI) 33.7 Intake & Output: Intake and Output for Last 24 Hours 03/22/23 03/23/23 03/24/23 23:59 23:59 23:59 Intake Total 774 / 774 1867 / 1867 Output Total 75 / 75 150 / 150 Balance 699 / 699 1717 / 1717 Lab / Micro Data 03/24/23 04:55 03/24/23 04:55 Labs: Laboratory Results - last 24 hr 03/24/23 04:55: WBC 6.9, RBC 4.17 L, Hgb 10.8 L, Hct 35.2 L, MCV 84.4, MCH 25.9 L, MCHC 30.7 L, RDW Std Deviation 46.0 H, RDW Coeff of Emilee 14.9 H, Plt Count 181, MPV 10.4, Immature Gran % (Auto) 0.100, Neut % (Auto) 62.2, Lymph % (Auto) 25.6, [place] % (Auto) 8.9, Eos % (Auto) 2.9, Baso % (Auto) 0.3, Absolute Neuts (auto) 4.3, Absolute Lymphs (auto) 1.76, Nucleated RBC % 0, Sodium 137, Potassium 3.6, Chloride 106, Carbon Dioxide 29.0, Anion Gap 2 L, BUN 18, Creatinine 0.24 L, Estim Creat Clear Calc 351.31, Est GFR (MDRD) Af Amer 547, Est GFR (MDRD) Non-Af 452, BUN/Creatinine Ratio 74.7 H, Glucose 91, Lactic Acid 0.5, Calcium 8.2 L, Total Bilirubin 0.30, AST 14 L, ALT 25, Alkaline Phosphatase 153 H, Total Protein 7.5, Albumin 3.1 L, Globulin 4.4 H, Albumin/Globulin Ratio 0.7 L Micro: Microbiology 03/23/23 13:23 Urine, Catheterized Urine Culture - Preliminary Culture exhibits no growth. 03/23/23 12:55 Mucosa - Nose Respiratory Panel (PCR) - Final Physical Exam Const alert and no apparent distress Constitutional Narrative: Patient has evidence of developmental delay and mental retardation, he does not appear uncomfortable at this time Orientation / Consciousness: awake HEENT normocephalic, head/scalp atraumatic and moist oral mucous membranes Eyes PERRL, EOMs intact bilaterally and conjunctivae normal Neck no JVD and thyroid normal General: trachea midline Resp normal respiratory effort, no retractions, no use of accessory muscles and clear to auscultation bilaterally Auscultation: Negative for rales, rhonchi or wheezes Cardio regular rate, regular rhythm, S1 normal heart sound, S2 normal heart sound, no murmurs, no rub and no gallops GI normal to inspection, nondistended, normoactive bowel sounds, soft to palpation, non-tender and non-distended GI Narrative: PEG tube is in place Extremity Extremity Narrative: There is noted to be atrophy of the lower extremities Skin no rashes or lesions noted General Skin Exam: no breakdown Neuro CN's II-XII intact bilaterally Neuro Narrative: Patient is nonverbal Sensorium / Orientation: awake and alert Psych Psych Narrative: Evidence of cognitive impairment/mental retardation is noted, patient is nonverbal, he does respond to painful stimuli Assessment & Plan Assessment/Plan (1) Emesis, persistent: PLAN: Plan 1. Possible aspiration in the setting of chronic respiratory failure-patient's pulmonary status remained stable at this time, continue present treatment with empiric antibiotics, an attempt will be to place the patient on humidified oxygen during the day, he uses the ventilator at night. #2 cerebral palsy with spastic quadriplegia-complicates care, medical course, recovery, and prognosis #3 seizure disorder-patient will remain on his present medication #4 acute on chronic respiratory failure-patient was placed on his home vent when he was admitted through the emergency room last night Time spent by myself addressing the patient's medical issues, reviewing his data, and collaborating with patient's care team. 35 minutes Charges/Coding Visit Charges Inpatient E&M: 56592 Subs Hosp L2
[2023-03-25] MEDS: Baclofen 10 MG Tablet 20 MG GT ×3 (00:44→11:11)
[2023-03-25] MEDS: Ampicillin/Sulbactam 3 GM in 0.9% Normal Saline (100mL MB+) 100 ML IV ×3 (00:44→11:15)
[2023-03-25] MEDS: GABAPENTIN 250 MG/5 ML SOLUTION 500 MG GT ×3 (00:50→11:11)
[2023-03-25 02:40] VITALS: BP 100/70; PULSE 61; RESP 18; TEMP 36.4; O2SAT 100
[2023-03-25 03:46] VITALS: BMI 34.3
[2023-03-25] MEDS: Ipratropium/Albuterol Sulfate 3 ML AMPUL.NEB INHALATION (06:46)
[2023-03-25 06:47] VITALS: PULSE 59; RESP 12; O2SAT 94
--- NOTE | 2023-03-25 07:04 | PN.CC_ITS ---
Assessment & Plan Assessment/Plan (1) Chronic respiratory failure: QUALIFIERS: Respiratory failure complication: hypoxia and hypercapnia Qualified Code(s): J96.11 - Chronic respiratory failure with hypoxia; J96.12 - Chronic respiratory failure with hypercapnia (2) Cerebral palsy: QUALIFIERS: Cerebral palsy type: spastic quadriplegic Qualified Code(s): G80.0 - Spastic quadriplegic cerebral palsy (3) Emesis, persistent: PLAN: Plan RECOMMENDATIONS: 1. Continue baseline care (HME during the day) 2. Okay to advance tube feeds from my perspective 3. Okay to continue with baseline medications 4. Discontinue antibiotics if patient does well 5. Okay to discharge from a pulmonary perspective IMPRESSIONS: 1. Acute emesis with possible aspiration in the setting of chronic respiratory failure Concern for aspiration leading to worsening in chronic respiratory failure. Patient appears to have normalized at this time. Patient has respond ed well to Zofran and no emesis has been noted. Patient currently on aspiration antibiotics. These likely do not need to be continued on discharge. Would resume patient's normal routine. Okay to discharge from my perspective. Patient can follow-up in the office routinely as previously scheduled. 2. Cerebral palsy with spastic quadriplegia/seizure disorder/GERD/anemia/history of candidal esophagitis Complicates care, management, recovery and prognosis. Cultures are showing no growth to date. No need to hold baseline medications. Patient's blood counts are appropriate at this time, so no transfusions would be indicated. Subjective Subjective Patient did well overnight. Patient's tube feeds have been advanced to 20 cc/h and no nausea or vomiting has been noted. Patient has not had any significant hemodynamic issues. Patient able to tolerate baseline respiratory plan yester day. Discussed with patient's mother at the bedside and she feels he is back to his baseline. Objective Data Objective Data Vital Signs: Vital Signs Temp Pulse Resp BP Pulse Ox O2 Del Method O2 Flow Rate 36.4 C L 59 L 12 100/70 94 Mechanical Ventilator 5 03/25/23 02:40 03/25/23 06:47 03/25/23 06:47 03/25/23 02:40 03/25/23 06:47 03/25/23 06:47 03/25/23 06:47 Oxygen Flow Rate (L/min) 5 Oxygen Delivery Method Mechanical Ventilator Weight: 79.4 kg Body Mass Index (BMI) 34.3 Intake & Output: Intake and Output for Last 24 Hours 03/23/23 03/24/23 03/25/23 23:59 23:59 23:59 Intake Total 774 / 774 2175.5 / 2175.5 906.67 / 906.67 Output Total 75 / 75 150 / 150 Balance 699 / 699 2025.5 / 2025.5 906.67 / 906.67 Lab / Micro Data Attestation: I reviewed the patient's lab results. Lab results narrative: No labs have been ordered for this morning 03/24/23 04:55 03/24/23 04:55 Micro: Microbiology 03/23/23 13:23 Urine, Catheterized Urine Culture - Preliminary Culture exhibits no growth. 03/23/23 12:55 Mucosa - Nose Respiratory Panel (PCR) - Final Physical Exam Const alert Constitutional Narrative: Alert, obese, nonverbal, lying comfortably in bed, no acute distress. HEENT normocephalic, head/scalp atraumatic and moist oral mucous membranes Eyes PERRL, EOMs intact bilaterally and conjunctivae normal Neck full ROM, no lymphadenopathy and supple Neck Narrative: Trach is clean, dry and intact. Lymph Lymphatic: no lymphadenopathy noted Chest inspection of chest normal Resp normal respiratory effort and no use of accessory muscles Effort and Inspection: Negative for actively coughing or uses accessory muscles Auscultation: Negative for rales, rhonchi or wheezes Cardio regular rate, regular rhythm, no murmurs and peripheral pulses 2+ throughout GI GI Narrative: Colostomy in place without issue, G-tube in place without issue. Patient's abdomen soft, nontender, nondistended. Significant bowel protrusion noted out of colostomy, but appears pink and healthy Back/Spine normal ROM Extremity normal to inspection, full ROM and no pedal edema Extremity Narrative: Significant contractions noted Skin no rashes or lesions noted Neuro Neuro Narrative: Appears to be at baseline neurologic status Charges/Coding Visit Charges Inpatient E&M: 08923 Subs Hosp L2
[2023-03-25 09:17] VITALS: BP 121/78; PULSE 57; RESP 13; TEMP 36.3; O2SAT 97
[2023-03-25] MEDS: ESOMEPRAZOLE MAGNESIUM 40 MG SUSPDR.PKT GT (09:24)
[2023-03-25] MEDS: PLECANATIDE 3 MG TABLET GT (09:25)
[2023-03-25] MEDS: Montelukast 10 MG Tablet 5 MG GT (09:25)
[2023-03-25] MEDS: Enoxaparin 40 MG/0.4 ML Syringe SC (09:25)
[2023-03-25] MEDS: Metoclopramide 10 MG/10 ML UDC GT (09:25)
[2023-03-25] MEDS: Doxazosin 1 MG Tablet 2 MG PO (09:26)
--- NOTE | 2023-03-25 09:37 | CASEMGMT ---
Addendum entered by Ashly Severino 03/25/23 11:42: TC to N and they state LAUREN is tomorrow. This RN CM updated the pt mom. Denies further needs at this time. Original Note: RE GUADALUPE to pt room at this time with Iliana GRIMALDO CM. Pt is currently on the vent at 5L. Pt mom states that Dr Monsalve educated her on keeping the pt SpO2 above 92% and that it is OK to have the mom titrate the pt as needed. Pt mom states that she is comfortable with this and that she has experience doing this already. Pt is to DC today via the ambulance and the mom states that she has an HME for the pt for transfer. Pt mom is aware the school attendance secretary is going to set up the transportation. Pt mom states no further needs at this time.
[2023-03-25] MEDS: Phenobarbital 20 MG/5 ML UDC 60 MG GT (09:39)
--- NOTE | 2023-03-25 10:35 | DCINST_ITS ---
Discharge Instructions Diet Discharge Diet: - (N.p.o., resume nutrition and hydration through PEG tube) Activity Discharge Activity: Return to Normal Activity Follow Up Care Test Results: Test results from this visit will be discussed in further detail at your follow- up appointment, if applicable. Discharge Plan Admission Admit Date/Time: 03/23/23 16:33 Attending Provider: Camacho Gonzalez Primary Care Provider: Timmy Conn Consulting Providers: Krishna Siddiqui; Jacek Monsalve; Yovanny Moreira; Mckinley Tristan; Cari Cavazos; Zackary Castro; Gris Hewitt; Patrice Langley; Goran Rose; Luis Mohr; Vito Bright; Luther Huggins; Lucia Dillard Instructions Additional Instructions / Restrictions: Resume previous oxygen settings and ventilator as before Discharge Orders/Prescriptions Prescriptions: Continued albuterol sulfate 2.5 mg /3 mL (0.083 %) solution for nebulization 2.5 mg inhalation Q4H PRN (Reason: Sob &/Or Wheezing) montelukast [Singulair] 4 mg granules in packet 4 mg PO DAILY Qty: 30 11RF Patient Comments: NEW RX THAT HAS NOT BEEN STARTED metoclopramide HCl 5 mg/5 mL solution 10 mg feeding tube 0830,1600,2100 phenobarbital 20 MG/5 ML elixir 60 mg G-tube 0830,2100 Cough Assist 1 dose .Route .MEDSUPPLY Rx Instructions: Inspiratory and Expiratory times of 20-40 seconds with a 1-2 second pause. oxygen concentrator 1 dose .Route .MEDSUPPLY Rx Instructions: As directed lactose-reduced food with fibr 0.06 gram-1.2 kcal/mL liquid 1,000 ml G-tube DAILY Patient Comments: PER PT HOME MED LIST: JEVITY 1.2 BENNY/ML 4.5-5 CARTONS PER DAY. APPROXIMATELY 1 LITER PER DAY. 55ML/HOUR TO 65ML DURING THE DAY. SLOW THIS DOWN TO 45 ML/HOUR AT NIGHT. gabapentin 250 MG/5 ML solution 500 mg G-tube 0000,0600,1200,1800 Patient Comments: PER PT HOME MED LIST: GABAPENTIN DOSING -IF MO'S HEART RATE IS LOW I DON'T ALWAYS GIVE THE WHOLE 10ML GABAPENTIN DOSE MY GUIDES ARE: PULSE <50: I MIGHT WAIT 1 HOUR FOR HIM TO BE MORE AWAKE. GIVE 4 ML PULSE IN THE 50'S: GIVE 5ML OR 6 ML PULSE IN THE 60'S: GIVE 6ML TO 7ML PULSE 69>: GIVE THE WHOLE 10ML plecanatide 3 mg tablet 3 mg GT 0830 doxazosin 2 mg tablet 2 mg GT 0830 cholecalciferol (vitamin D3) 10 mcg/mL (400 unit/mL) drops 15 mcg feeding tube 0830 guaifenesin 200 mg/5 mL liquid 200 mg feeding tube 0830 PRN (Reason: COUGH/CONGESTION) alum-mag hydroxide-simeth 200-200-20 mg/5 mL suspension 5 ml PO 0000,0600,1200,1800 PRN (Reason: ANTACID) acetaminophen 650 mg/20.3 mL suspension 650 mg feeding tube 0000,0600,1200,1800 PRN (Reason: PAIN ) cetirizine 1 mg/mL solution 10 mg feeding tube 1600 lorazepam [Ativan] 2 mg/mL solution 1 mg IM DAILY PRN (Reason: AGITATION ) Rx Instructions: via g-tube baclofen 20 mg tablet 20 mg feeding tube Q6H ondansetron 4 mg tablet,disintegrating 4 mg PO Q8H PRN (Reason: NAUSEA/VOMITING) Qty: 30 0RF ipratropium-albuterol 0.5 mg-3 mg(2.5 mg base)/3 mL solution for nebulization 3 ml inhalation Q4H PRN (Reason: SOB &/OR WHEEZING) esomeprazole magnesium [Nexium Packet] [address] for susp in packet 40 mg G-tube BID Referrals / Follow Up: Jacek Monsalve MD [Med Staff - Active Staff] - See Referral Note (Follow-up with pulmonary medicine as scheduled or within a month) Timmy Conn MD [Primary Care Provider] - Disposition Disposition (needs filled in before D/C Order can be placed): Home Health Service
--- NOTE | 2023-03-25 10:47 | DS.PCM_ITS ---
Providers Date of Admission: 03/23/23 Date of Discharge: 03/25/23 Primary Care Physician: Dr. Timmy Conn MD Consultations 03/23/23 16:46 Consult: Senior Field Engineer / Pulmonary Medicine Routine Consulting Provider: Intensivists/Pulmonary Med Reason for Consult: Acute on chronic hypoxic resp failure, on trach vent EMERGENT Consult: No MD Notified: Yes Date Notified: 03/23/23 Time Notified: 17:36 Method of Notification: Text Consult: Onc/Wound/equalizing saw operator Routine Comment: Reason for Consult:: pt w/ ostomy Reason For Visit: ACUTE HYPOXEMIC RESP FAILURE Diagnosis Discharge Diagnosis (1) Chronic respiratory failure: Status: Chronic Code(s): J96.10 - Chronic respiratory failure, unspecified whether with hypoxia or hypercapnia Qualifiers: Respiratory failure complication: hypoxia and hypercapnia Qualified Code(s): J96.11 - Chronic respiratory failure with hypoxia; J96.12 - Chronic respiratory failure with hypercapnia (2) Cerebral palsy: Status: Chronic Code(s): G80.9 - Cerebral palsy, unspecified Qualifiers: Cerebral palsy type: spastic quadriplegic Qualified Code(s): G80.0 - Spastic quadriplegic cerebral palsy (3) Emesis, persistent: Status: Acute Code(s): R11.15 - Cyclical vomiting syndrome unrelated to migraine Plan 1. aspiration in the setting of chronic respiratory failure, without aspiration pneumonia-patient's pulmonary status remained stable at this time, continue present treatment with empiric antibiotics, an attempt will be to place the patient on humidified oxygen during the day, he uses the ventilator at night. #2 cerebral palsy with spastic quadriplegia-complicates care, medical course, recovery, and prognosis #3 seizure disorder-patient will remain on his present medication #4 acute on chronic respiratory failure-patient was placed on his home vent when he was admitted through the emergency room last night Time spent by myself addressing the patient's medical issues, reviewing his data, and collaborating with patient's care team. 35 minutes Medications at Discharge Home Medications phenobarbital 20 mg/5 mL (4 mg/mL) oral elixir 60 mg G-tube 0830,2100 SEIZURES 02/19/17 metoclopramide HCl 5 mg/5 mL oral solution 10 mg feeding tube 0830,1600,2100 STOMACH 09/16/18 Cough Assist 1 dose .Route .MEDSUPPLY assist in clearing secretions 12/25/18 oxygen concentrator 1 dose .Route .MEDSUPPLY second unit, 4 LPM cont all modalities 12/25/18 gabapentin 250 mg/5 mL oral solution 500 mg G-tube 0000,0600,1200,1800 SEIZURES 09/26/19 albuterol sulfate 2.5 mg/3 mL (0.083 %) solution for nebulization 2.5 mg inhalation Q4H PRN Sob &/Or Wheezing 11/27/20 lactose-reduced food with fiber 0.06 gram-1.2 kcal/mL oral liquid 1,000 ml G- tube DAILY NUTRITION 11/27/20 plecanatide 3 mg tablet 3 mg G-tube 0830 BOWELS 11/27/20 doxazosin 2 mg tablet 2 mg PO 0830 BLOOD PRESSURE 11/30/21 cholecalciferol (vitamin D3) 10 mcg/mL (400 unit/mL) oral drops 15 mcg feeding tube 0830 SUPPLEMENT 03/24/22 guaifenesin 200 mg/5 mL oral liquid 200 mg feeding tube 0830 PRN COUGH/CONGESTION 03/24/22 acetaminophen 650 mg/20.3 mL oral suspension 650 mg feeding tube 0000 ,0600,1200,1800 PRN PAIN 10/24/22 aluminum-mag hydroxide-simethicone 200 mg-200 mg-20 mg/5 mL oral susp 5 ml PO 0000,0600,1200,1800 PRN ANTACID 10/24/22 cetirizine 1 mg/mL oral solution 10 mg feeding tube 1600 ALLERGIES 10/24/22 baclofen 20 mg tablet 20 mg feeding tube Q6H MUSCLE SPASMS 12/10/22 ondansetron 4 mg disintegrating tablet 4 mg PO Q8H PRN NAUSEA/VOMITING #30 tabs 12/13/22 lorazepam 2 mg/mL injection solution (Ativan) 1 mg IM DAILY PRN AGITATION 03/02/23 montelukast 4 mg oral granules in packet (Singulair) 4 mg PO DAILY ASTHMA #30 ea 03/02/23 esomeprazole magnesium 40 mg granules delayed release for susp (Nexium Packet) 40 mg G-tube BID ACID REFLUX 03/23/23 ipratropium 0.5 mg-albuterol 3 mg (2.5 mg base)/3 mL nebulization soln 3 ml inhalation Q4H PRN SOB &/OR WHEEZING 03/23/23 Hospital Course Operations None Procedures None Summary of Care Provided Minutes Spent on Discharge: 32 Hospital Course: This 43-year-old white male with a history of severe cerebral palsy was brought to the emergency room at [facility] after having an episode of emesis at home with concerns for aspiration. Patient has a trach and is on the vent at night, he is on chronic continuous oxygen which is humidified during the day. Workup in the emergency room included a chest x-ray which showed no changes from his previous chest x-ray done on 01/16/2023. Patient's white blood cell count was slightly elevated, and patient was noted to be in mild respiratory distress with tachypnea and tachycardia. Lactic acid was elevated at 5.3. Patient was treated in the emergency room empirically for aspiration pneumonia and placed on IV Unasyn, he was admitted to PCU, he was seen by critical care who felt that the patient most likely had aspirated but did not have aspiration pneumonia. Patient's oxygen demand improved, on 03/25/2023, patient appeared to be back to his baseline. On 03/25/2023, patient was seen and examined:alert and no apparent distress Constitutional Narrative: Patient has evidence of developmental delay and mental retardation, he does not appear uncomfortable at this time Orientation / Consciousness: awake HEENT normocephalic, head/scalp atraumatic and moist oral mucous membranes Eyes PERRL, EOMs intact bilaterally and conjunctivae normal Neck no JVD and thyroid normal General: trachea midline Resp normal respiratory effort, no retractions, no use of accessory muscles and clear to auscultation bilaterally Auscultation: Negative for rales, rhonchi or wheezes Cardio regular rate, regular rhythm, S1 normal heart sound, S2 normal heart sound, no murmurs, no rub and no gallops GI normal to inspection, nondistended, normoactive bowel sounds, soft to palpation, non-tender and non-distended GI Narrative: PEG tube is in place Extremity Extremity Narrative: There is noted to be atrophy of the lower extremities Skin no rashes or lesions noted General Skin Exam: no breakdown Neuro CN's II-XII intact bilaterally Neuro Narrative: Patient is nonverbal Sensorium / Orientation: awake and alert Psych Psych Narrative: Evidence of cognitive impairment/mental retardation is noted, patient is nonverbal, he does respond to painful stimuli Patient was discharged to home in stable condition on 03/25/2023. Weight / BMI Weight Weight: 79.4 kg Body Mass Index (BMI) 34.3 ABG / Lab / Microbiology Data 03/24/23 04:55 03/24/23 04:55 Microbiology: Microbiology 03/23/23 13:23 Blood Culture (Wb) - Port Blood Culture - Preliminary No growth in 48 hours. 03/23/23 12:35 Blood Culture (Wb) - Chest Blood Culture - Preliminary No growth in 48 hours. 03/23/23 13:23 Urine, Catheterized Urine Culture - Final Culture exhibits no growth. 03/23/23 12:55 Mucosa - Nose Respiratory Panel (PCR) - Final D/C Instructions Discharge Diet: - (N.p.o., resume nutrition and hydration through PEG tube) Meaningful Use Info Meaningful Use Diagnoses (Choose all that apply): None applicable Discharge Plan Admission Admit Date/Time: 03/23/23 16:33 Attending Provider: Camacho Gonzalez Primary Care Provider: Timmy Conn Consulting Providers: Krishna Siddiqui; Jacek Monsalve; Yovanny Moreira; Mckinley Tristan; Cari Cavazos; Zackary Castro; Gris Hewitt; Patrice Langley; Goran Rose; Luis Morh; Vito Bright; Luther Huggins; Lucia Dillard Instructions Additional Instructions / Restrictions: Resume previous oxygen settings and ventilator as before Discharge Orders/Prescriptions Prescriptions: Continued albuterol sulfate 2.5 mg /3 mL (0.083 %) solution for nebulization 2.5 mg inhalation Q4H PRN (Reason: Sob &/Or Wheezing) montelukast [Singulair] 4 mg granules in packet 4 mg PO DAILY Qty: 30 11RF Patient Comments: NEW RX THAT HAS NOT BEEN STARTED metoclopramide HCl 5 mg/5 mL solution 10 mg feeding tube 0830,1600,2100 phenobarbital 20 MG/5 ML elixir 60 mg G-tube 0830,2100 Cough Assist 1 dose .Route .MEDSUPPLY Rx Instructions: Inspiratory and Expiratory times of 20-40 seconds with a 1-2 second pause. oxygen concentrator 1 dose .Route .MEDSUPPLY Rx Instructions: As directed lactose-reduced food with fibr 0.06 gram-1.2 kcal/mL liquid 1,000 ml G-tube DAILY Patient Comments: PER PT HOME MED LIST: JEVITY 1.2 BENNY/ML 4.5-5 CARTONS PER DAY. APPROXIMATELY 1 LITER PER DAY. 55ML/HOUR TO 65ML DURING THE DAY. SLOW THIS DOWN TO 45 ML/HOUR AT NIGHT. gabapentin 250 MG/5 ML solution 500 mg G-tube 0000,0600,1200,1800 Patient Comments: PER PT HOME MED LIST: GABAPENTIN DOSING -IF MO'S HEART RATE IS LOW I DON'T ALWAYS GIVE THE WHOLE 10ML GABAPENTIN DOSE MY GUIDES ARE: PULSE <50: I MIGHT WAIT 1 HOUR FOR HIM TO BE MORE AWAKE. GIVE 4 ML PULSE IN THE 50'S: GIVE 5ML OR 6 ML PULSE IN THE 60'S: GIVE 6ML TO 7ML PULSE 69>: GIVE THE WHOLE 10ML plecanatide 3 mg tablet 3 mg GT 0830 doxazosin 2 mg tablet 2 mg GT 0830 cholecalciferol (vitamin D3) 10 mcg/mL (400 unit/mL) drops 15 mcg feeding tube 0830 guaifenesin 200 mg/5 mL liquid 200 mg feeding tube 0830 PRN (Reason: COUGH/CONGESTION) alum-mag hydroxide-simeth 200-200-20 mg/5 mL suspension 5 ml PO 0000,0600,1200,1800 PRN (Reason: ANTACID) acetaminophen 650 mg/20.3 mL suspension 650 mg feeding tube 0000,0600,1200,1800 PRN (Reason: PAIN ) cetirizine 1 mg/mL solution 10 mg feeding tube 1600 lorazepam [Ativan] 2 mg/mL solution 1 mg IM DAILY PRN (Reason: AGITATION ) Rx Instructions: via g-tube baclofen 20 mg tablet 20 mg feeding tube Q6H ondansetron 4 mg tablet,disintegrating 4 mg PO Q8H PRN (Reason: NAUSEA/VOMITING) Qty: 30 0RF ipratropium-albuterol 0.5 mg-3 mg(2.5 mg base)/3 mL solution for nebulization 3 ml inhalation Q4H PRN (Reason: SOB &/OR WHEEZING) esomeprazole magnesium [Nexium Packet] [address] for susp in packet 40 mg G-tube BID Referrals / Follow Up: Jacek Monsalve MD [Med Staff - Active Staff] - See Referral Note (Follow-up with pulmonary medicine as scheduled or within a month) Timmy Conn MD [Primary Care Provider] - Disposition Disposition (needs filled in before D/C Order can be placed): Home Health Service Charges/Coding Visit Charges Inpatient E&M: 62652 Disch Hosp >30min
== END 2023-03-25 12:40 | disposition home health service (06) | DRG 208 ==
LOC: ED 16:12 → ICU 17:07
PROVIDERS: Nurse Practitioner; Admitting Provider Internal Medicine; Emergency Provider Emergency Medicine; PCP Family Medicine; Visit Provider Internal Medicine
DX: J96.21 Acute and chronic respiratory failure with hypoxia (principal); G80.0 Spastic quadriplegic cerebral palsy; E87.20 Acidosis, unspecified; T17.998A Other foreign object in respiratory tract, part unspecified causing other injury, initial encounter; G40.909 Epilepsy, unspecified, not intractable, without status epilepticus; J96.22 Acute and chronic respiratory failure with hypercapnia; Z93.1 Gastrostomy status; Z93.2 Ileostomy status; D64.9 Anemia, unspecified; K21.9 Gastro-esophageal reflux disease without esophagitis; R11.15 Cyclical vomiting syndrome unrelated to migraine; Z99.81 Dependence on supplemental oxygen; F79 Unspecified intellectual disabilities; R00.0 Tachycardia, unspecified; Z79.899 Other long term (current) drug therapy; R13.10 Dysphagia, unspecified; W44.8XXA Other foreign body entering into or through a natural orifice, initial encounter
CPT/HCPCS: 36591; 71045; 80053; 83605; 85025; 85610; 85730; 87040; 87086; 87633; 93005; 94640; 94762; 97802; 99284; J7030; J7040; A4216; J0295; J2405

== ENCOUNTER 2023-04-13 12:10 | Emergency (ER) | payer MEDICARE, MEDICAID, SELFPAY ==
[2023-04-13] VITALS (8 sets, daily range): BP systolic 101–143; BP diastolic 76–120; PULSE 91–162; RESP 17–32; TEMP 36.7–37.6; O2SAT 92–96; BMI 34.2
--- NOTE | 2023-04-13 12:31 | CT_ITS ---
STUDY: CTA CHEST REASON FOR EXAM: Male, 43 years old. dyspnea. PE and Pneumonia hx. Tracheostomy. Cerebral palsy. RADIATION DOSAGE (If Supplied By Facility): CTDIvol = ( 11.48 ) mGy, DLP = ( 371.55 ) mGycm TECHNIQUE: The examination was performed with the intravenous administration of IV 100mL Isovue-370. Post-processing of the angiographic images was performed, with multiplanar reformation and 3D reconstruction. Individualized dose optimization techniques were used for this CT. COMPARISON: Comparison is made with prior study dated November 30, 2021. FINDINGS: Limited inspiratory effort due to the patient''s condition. A tracheostomy tube is in situ. Normal enhancement of the main pulmonary artery and right and left pulmonary arteries. Normal enhancement of the bilateral peripheral pulmonary arteries. There is no demonstrated pulmonary embolism. Normal thoracic aorta and visualized great vessels. There is no demonstrated aortic dissection. Normal heart and pericardium. There are visualized mediastinal lymph nodes, which are within normal size limits, and with normal morphology. Normal hilar regions. Normal visualized trachea and bronchi. Stable radiographic areas of mild degree of groundglass appearance involving both upper and lower lobes. No surgery is seen. Normal pleura. Normal chest wall structures. Normal osseous structures. The patient is status post cholecystectomy. CT/CTA Chest W/WO Contrast IMPRESSION: No evidence of pulmonary embolism. Once again, there is evidence of a nonspecific geographic areas of groundglass appearance involving both lungs. This may represent mild degree of chronic inflammation. No focal pulmonary infiltrate is seen. Electronically Signed: Matti Greer MD at 13:48 EST ,
--- NOTE | 2023-04-13 12:36 | ED.VIS.DYS ---
HPI History of Present Illness Chief Complaint: Shortness of Breath Detail of Chief Complaint: Patient is nonverbal. Both parents present giving the history. Informant: parent Onset/Context/Timing Onset: Today and Hours Context: sudden Timing: Continuous Current Severity: Moderate Maximum Severity: Moderate Worsened by: Nothing Relieved by: Nothing Associated Symptoms Negative for cough Chest Pain: Positive for None Narrative Narrative: 43-year-old male extensive past medical history including cerebral palsy, anemia, prior aspiration pneumonia, tracheostomy and vent dependent, PE in 2019 for which she was on blood thinners for about 6 months and has not been on them since. History of seizures and GI bleed. Patient is cared for by his parents at home. He does not speak or ambulate. His heart rate jumped up to around 140 today around 1030. It is as high as 160s currently. His pulse ox remained in the mid 90s at home. No recent illness. No recent fever. No recent vomiting last several days. He was admitted to the hospital about 3 weeks ago for a possible aspiration pneumonia. PE Risk Factors: Positive for Prior DVT or PE and Recent immobilization; Negative for Cancer, OCP + Smoking + > 35, Recent surgery or Recent travel Prior similar symptoms: Yes Recent Illness/Hospitalization: Yes [facility] Medical History Acute dyspnea Anemia in chronic illness Anxiety Aspiration pneumonia Cerebral palsy Cerebral palsy Chronic respiratory failure Chronic respiratory failure with hypoxia Colostomy prolapse Debility Edema GERD (gastroesophageal reflux disease) History of seizure disorder Iron deficiency anemia Non-smoker Nonrheumatic mitral valve prolapse Obesity On home oxygen therapy Pseudomonas pneumonia Pulmonary embolism Pulmonary embolism on left (06/14/19) Redundant colon Seizures Thrombocytopenia Tracheostomy in place Upper GI bleeding (04/2020) Home Medications phenobarbital 20 mg/5 mL (4 mg/mL) oral elixir 60 mg G-tube 0830,2100 SEIZURES 02/19/17 [History Last Taken 03/23/23] metoclopramide HCl 5 mg/5 mL oral solution 10 mg feeding tube 0830,1600,2100 STOMACH 09/16/18 [History Last Taken 03/23/23] Cough Assist 1 dose .Route .MEDSUPPLY assist in clearing secretions 12/25/18 [History Last Taken 03/23/23] oxygen concentrator 1 dose .Route .MEDSUPPLY second unit, 4 LPM cont all modalities 12/25/18 [History Last Taken Unknown] gabapentin 250 mg/5 mL oral solution 500 mg G-tube 0000,0600,1200,1800 SEIZURES 09/26/19 [History Last Taken 03/23/23] albuterol sulfate 2.5 mg/3 mL (0.083 %) solution for nebulization 2.5 mg inhalation Q4H PRN Sob &/Or Wheezing 11/27/20 [History Last Taken Unknown] lactose-reduced food with fiber 0.06 gram-1.2 kcal/mL oral liquid 1,000 ml G-tube DAILY NUTRITION 11/27/20 [History Last Taken 03/23/23] plecanatide 3 mg tablet 3 mg G-tube 0830 BOWELS 11/27/20 [History Last Taken 03/23/23] doxazosin 2 mg tablet 2 mg PO 0830 BLOOD PRESSURE 11/30/21 [History Last Taken 03/23/23] cholecalciferol (vitamin D3) 10 mcg/mL (400 unit/mL) oral drops 15 mcg feeding tube 0830 SUPPLEMENT 03/24/22 [History Last Taken 03/23/23] guaifenesin 200 mg/5 mL oral liquid 200 mg feeding tube 0830 PRN COUGH/CONGESTION 03/24/22 [History Last Taken Unknown] acetaminophen 650 mg/20.3 mL oral suspension 650 mg feeding tube 0000,0600,1200,1800 PRN PAIN 10/24/22 [History Last Taken Unknown] aluminum-mag hydroxide-simethicone 200 mg-200 mg-20 mg/5 mL oral susp 5 ml PO 0000,0600,1200,1800 PRN ANTACID 10/24/22 [History Last Taken Unknown] cetirizine 1 mg/mL oral solution 10 mg feeding tube 1600 ALLERGIES 10/24/22 [History Last Taken 03/22/23] baclofen 20 mg tablet 20 mg feeding tube Q6H MUSCLE SPASMS 12/10/22 [History Last Taken 03/23/23] ondansetron 4 mg disintegrating tablet 4 mg PO Q8H PRN NAUSEA/VOMITING #30 tabs 12/13/22 [Rx Last Taken Unknown] lorazepam 2 mg/mL injection solution (Ativan) 1 mg IM DAILY PRN AGITATION 03/02/23 [History Last Taken Unknown] montelukast 4 mg oral granules in packet (Singulair) 4 mg PO DAILY ASTHMA #30 ea 03/02/23 [Rx Last Taken Unknown] esomeprazole magnesium 40 mg granules delayed release for susp (Nexium Packet) 40 mg G-tube BID ACID REFLUX 03/23/23 [History Last Taken 03/23/23] ipratropium 0.5 mg-albuterol 3 mg (2.5 mg base)/3 mL nebulization soln 3 ml inhalation Q4H PRN SOB &/OR WHEEZING 03/23/23 [History Last Taken Unknown] Allergy/AdvReac Type Severity Reaction Status Date / Time chlorhexidine Allergy Rash Verified 04/13/23 12:11 cisapride monohydrate Allergy Rash Verified 04/13/23 12:11 [From Propulsid] house dust Allergy NEEDS Verified 04/13/23 12:11 FOLLOW-UP metronidazole [From Flagyl] Allergy Rash Verified 04/13/23 12:35 codeine AdvReac hallucinati Verified 04/13/23 12:11 ons morphine AdvReac Hallucinati Verified 04/13/23 12:11 ons Family History Mother Hepatitis C Hypertension HIV disease Father H/O heart artery stent CAD (coronary artery disease) Atrial fibrillation Hypertension Esophageal cancer Surgical History Colostomy in place Heel cord lengthening History of colostomy History of eye surgery History of gastrostomy tube placement History of open reduction and internal fixation (ORIF) procedure History of soft tissue release Status post insertion of intrathecal baclofen pump Social History household members: family housing: house current occupational status: disabled Smoking Status: Never smoker alcohol intake: never substance use type: does not use caffeine: No ROS ROS ED ROS Narrative No recent illness. Possible aspiration pneumonia admitted for 3 weeks ago. Patient is unable to give any history himself due to he is nonverbal. Parents are filling in the information. Review of Systems ROS Unobtainable: due to mental status and other Details: Patient is nonverbal. EXAM Physical Exam Narrative Exam Narrative: 43-year-old male vital signs he is tachycardic in the 163 range. He is on mechanical vent and has a tracheostomy. He has a right-sided Mediport with a peripheral IV. H EENT exam unremarkable. Mytrex membranes. Neck nontender. Anterior tracheostomy. Lungs diminished breath sounds bilaterally. No obvious rales, rhonchi or wheezing. Equal symmetrical. Heart tachycardic rate of 163. No appreciable murmur. Chest wall and ribs nontender. Abdomen soft. Nondistended. He has a left-sided colostomy with brown stool filling the colostomy bag. He has a hernia around his colostomy site which is all chronic. No peritoneal signs. Upper extremities are nontender without edema. Lower extremities have gross atrophy of the musculature and extremities. He is nonweightbearing. There is no significant swelling. Neurologically his eyes are open. He does not speak. He is not following commands. Const Vital Signs: 04/13/23 12:11 04/13/23 12:18 04/13/23 12:19 Temperature 98.1 F Temperature Source Temporal Pulse Rate 150 H 162 H Respiratory Rate 32 H 32 H Respiratory Effort Labored Respiratory Pattern Tachypnea Blood Pressure 143/120 H 113/82 H Blood Pressure Mean 127 92 Pulse Ox 95 96 Oxygen Delivery Method Nasal Cannula Mechanical Ventilator Mechanical Ventilator Oxygen Flow Rate (L/min) 3.5 04/13/23 12:40 04/13/23 13:08 04/13/23 15:03 Temperature 99.6 F H Temperature Source Axillary Pulse Rate 120 H 98 Respiratory Rate 17 29 H Respiratory Effort Respiratory Pattern Blood Pressure 102/76 120/76 Blood Pressure Mean 84 90 Pulse Ox 95 92 96 Oxygen Delivery Method Mechanical Ventilator Nasal Cannula Mechanical Ventilator Oxygen Flow Rate (L/min) 3.5 04/13/23 15:06 Temperature 98.1 F Temperature Source Temporal Pulse Rate 98 Respiratory Rate 29 H Respiratory Effort Respiratory Pattern Blood Pressure 120/76 Blood Pressure Mean 90 Pulse Ox 96 Oxygen Delivery Method Mechanical Ventilator Oxygen Flow Rate (L/min) Positive well nourished and well developed; Negative for cachectic or contractures General Appearance ED: well developed and pallor; Negative for cachectic, contractures or NAD Nutritional Appearance: Negative for cachectic HEENT Reports moist mucous membranes; Denies dry mucous membranes atraumatic; Negative for trauma or tenderness Mouth ED: No dry mucous membranes Mouth: No dry mucous membranes Eyes PERRL and EOMs intact bilaterally General Eye ED: Negative for pale conjunctiva or scleral icterus Neck no lymphadenopathy, supple, no meningeal signs and no JVD General: Negative for tenderness Lymph Lymphatic: Negative for other Resp No normal respiratory effort and clear to auscultation bilaterally Resp Narrative: Diminished breath sounds bilaterally. Increased respiratory rate. Increased heart rate. Auscultation: diminished lung sounds; Negative for rales, rhonchi or wheezes Cardio regular rhythm, S1 normal heart sound, S2 normal heart sound and no murmurs; Negative for regular rate Rate: tachycardic Rhythm: Negative for abnormal rhythm GI non-tender, non-distended and no masses GI Narrative: Left lower quadrant colostomy. Brown stool in the colostomy bag. Pericolostomy hernia. No obstruction. Auscultation: normoactive bowel sounds Palpation: soft; Negative for tender, guarding or rebound tenderness present Extremity Negative for normal to inspection Extremity Narrative: Chronic atrophy of both lower extremities. No edema or cords. Neuro Neuro Narrative: Eyes are open. Nonverbal. Not following commands. Sensorium / Orientation: alert and orientation impaired; Negative for oriented to person, oriented to place or oriented to time Motor Exam: Negative for strength 5/5 throughout Psych Negative for mental status grossly normal Skin no wounds and skin turgor normal General Skin Exam: pallor; Negative for jaundice Lesions: no lesions Rashes: no rashes MDM MDM MDM Narrative Medical decision making narrative: 43-year-old male suffers from severe cerebral palsy with a history of pulmonary emboli and prior aspiration pneumonia with a recent admission about 3 weeks ago for possible aspiration. Today presents with accelerated heart rate and respiratory rate. Respiratory and cardiac workup will be performed. Parents wanted me to give him some Ativan for sedation. CTA of the chest will be obtained for evaluation for possible PE which she has had before but is currently on no blood thinners and has not been for years. Versus an aspiration pneumonia or effusion excetra. Multiple repeat exams the most recent at 4 PM patient is doing well. Currently his heart rates in the 90s. Blood pressure 120/76. Pulse ox 96%. Clinically looks much better his parents agree the Ativan made him significantly improved. They are comfortable with him being discharged home. He is receiving half a liter normal saline bolus prior to discharge. History & Record Review Discussion w/independent historian: Patient Additional record(s) reviewed:: Prior inpatient record, Prior outpatient record, Prior ED visit and Prior labs Lab Data Attestation: I reviewed the patient's lab results. Lab results narrative: CBC shows a white count of 7. H&H of 12 and 40. Platelets 216. PT/INR 13 and 1. PTT 25. D-dimer less than 0.27. Electrolytes show gap of 10. BUN 19 creatinine 0.4. Glucose 116. Troponin less than 3. CTA chest showed no PE. No pneumonia. Labs: Laboratory Results - last 24 hr 04/13/23 12:15 WBC 7.9 RBC 4.85 Hgb 12.4 L Hct 40.2 MCV 82.9 MCH 25.6 L MCHC 30.8 L RDW Std Deviation 44.8 H RDW Coeff of Emilee 14.9 H Plt Count 216 MPV 10.2 Immature Gran % (Auto) 0.300 Neut % (Auto) 44.2 L Lymph % (Auto) 43.5 H Rhea % (Auto) 7.8 Eos % (Auto) 3.7 Baso % (Auto) 0.5 Absolute Neuts (auto) 3.5 Absolute Lymphs (auto) 3.45 Nucleated RBC % 0 PT 13.3 INR 1.0 APTT 25.7 D-Dimer Quant (PE/DVT) < 0.27 L Sodium 137 Potassium 4.0 Chloride 103 Carbon Dioxide 24.0 Anion Gap 10 BUN 19 H Creatinine 0.48 L Estim Creat Clear Calc 176.92 Est GFR (MDRD) Af Amer 248 Est GFR (MDRD) Non-Af 205 BUN/Creatinine Ratio 39.7 H Glucose 116 H Calcium 9.2 Troponin I High Sens < 3 L Radiography Diagnostic Testing: Clinical Impression(s) from Imaging Studies Chest CTA 04/13/23 12:31 IMPRESSION: No evidence of pulmonary embolism. Once again, there is evidence of a nonspecific geographic areas of groundglass appearance involving both lungs. This may represent mild degree of chronic inflammation. No focal pulmonary infiltrate is seen. Electronically Signed: Matti Greer MD at 13:48 EST , Rhythm Strip Rhythm Strip: Sinus Tach Rate: 165 Ectopy: None EKG Initial EKG: Attestation: I personally reviewed and interpreted this EKG as follows: Interpretation: Sinus Tachycardia Comments: Sinus tachycardia rate of 165. Significant artifact very limited study and very difficult to interpret. Cannot rule out an SVT. There is no obvious signs of ST elevation or significant ischemia. Discharge Plan Triage Chief Complaint: Shortness of Breath ED Provider: Anthony Russell Dx/Rx/DC Orders Clinical Impression: History of cerebral palsy, Anxiety, Tachycardia, History of aspiration pneumonia, History of pulmonary embolism Instructions: ED Anxiety Reaction, ED Tachycardia: PAT Prescriptions: No Action albuterol sulfate 2.5 mg /3 mL (0.083 %) solution for nebulization 2.5 mg inhalation Q4H PRN (Reason: Sob &/Or Wheezing) montelukast [Singulair] 4 mg granules in packet 4 mg PO DAILY Qty: 30 11RF Patient Comments: NEW RX THAT HAS NOT BEEN STARTED metoclopramide HCl 5 mg/5 mL solution 10 mg feeding tube 0830,1600,2100 phenobarbital 20 MG/5 ML elixir 60 mg G-tube 0830,2100 Cough Assist 1 dose .Route .MEDSUPPLY Rx Instructions: Inspiratory and Expiratory times of 20-40 seconds with a 1-2 second pause. oxygen concentrator 1 dose .Route .MEDSUPPLY Rx Instructions: As directed lactose-reduced food with fibr 0.06 gram-1.2 kcal/mL liquid 1,000 ml G-tube DAILY Patient Comments: PER PT HOME MED LIST: JEVITY 1.2 BENNY/ML 4.5-5 CARTONS PER DAY. APPROXIMATELY 1 LITER PER DAY. 55ML/HOUR TO 65ML DURING THE DAY. SLOW THIS DOWN TO 45 ML/HOUR AT NIGHT. gabapentin 250 MG/5 ML solution 500 mg G-tube 0000,0600,1200,1800 Patient Comments: PER PT HOME MED LIST: GABAPENTIN DOSING -IF MO'S HEART RATE IS LOW I DON'T ALWAYS GIVE THE WHOLE 10ML GABAPENTIN DOSE MY GUIDES ARE: PULSE <50: I MIGHT WAIT 1 HOUR FOR HIM TO BE MORE AWAKE. GIVE 4 ML PULSE IN THE 50'S: GIVE 5ML OR 6 ML PULSE IN THE 60'S: GIVE 6ML TO 7ML PULSE 69>: GIVE THE WHOLE 10ML plecanatide 3 mg tablet 3 mg GT 0830 doxazosin 2 mg tablet 2 mg GT 0830 cholecalciferol (vitamin D3) 10 mcg/mL (400 unit/mL) drops 15 mcg feeding tube 0830 guaifenesin 200 mg/5 mL liquid 200 mg feeding tube 0830 PRN (Reason: COUGH/CONGESTION) alum-mag hydroxide-simeth 200-200-20 mg/5 mL suspension 5 ml PO 0000,0600,1200,1800 PRN (Reason: ANTACID) acetaminophen 650 mg/20.3 mL suspension 650 mg feeding tube 0000,0600,1200,1800 PRN (Reason: PAIN ) cetirizine 1 mg/mL solution 10 mg feeding tube 1600 lorazepam [Ativan] 2 mg/mL solution 1 mg IM DAILY PRN (Reason: AGITATION ) Rx Instructions: via g-tube baclofen 20 mg tablet 20 mg feeding tube Q6H ondansetron 4 mg tablet,disintegrating 4 mg PO Q8H PRN (Reason: NAUSEA/VOMITING) Qty: 30 0RF ipratropium-albuterol 0.5 mg-3 mg(2.5 mg base)/3 mL solution for nebulization 3 ml inhalation Q4H PRN (Reason: SOB &/OR WHEEZING) esomeprazole magnesium [Nexium Packet] [address] for susp in packet 40 mg G-tube BID Primary Care Provider: Timmy Conn Referrals: Timmy Conn MD [Primary Care Provider] - As Needed Activity Restrictions/Additional Instructions: Continue your current medications as prescribed. Ativan as needed for anxiety. Follow-up with your doctor as needed or return if worse. His labs today and CAT scan were unremarkable. There is no signs of any blood clots. No signs of any pneumonia. Disposition Disposition: Home, Self Care
--- NOTE | 2023-04-13 12:41 | CPS ---
This RT asked Pt mom to bring in home vent. Pt was breathing 30-40 times a minute. Inflated pt cuff and placed on 3.5L with home vent at this time. RR coming back down to 20 times a min. Pt is looking more relaxed at this time.
[2023-04-13 12:43] LABS: Absolute Lymphocyte Count 3.45 X10^3/uL (0.83-4.51); Absolute Neutrophil Count 3.5 X10^3/uL (2.0-7.7); Basophil# 0.04 X10^3/uL; Basophil% 0.5 % (0-1); Eosinophil# 0.29 X10^3/uL; Eosinophils% 3.7 % (0-5); Hematocrit 40.2 % (40-54); Hemoglobin 12.4 g/dL (13.0-16.5); Lymphocyte # 3.45 X10^3/ul (0.83-4.51); Lymphocyte % 43.5 % (19-41); Mean Corp Hgb Conc 30.8 g/dL (32-36); Mean Corpuscular Hgb 25.6 pg (27.0-32.0); Mean Corpuscular Volume 82.9 fL (80-94); Mean Platelet Vol. 10.2 fl (6.2-12.0); Monocyte# 0.62 X10^3/uL; Monocyte% 7.8 % (0-10); NRBC Flagged by Analyzer 0 % (0-5); Neutrophil # 3.52 X10^3/uL (2.7-7.7); Neutrophil % 44.2 % (47-70); Platelet Count 216 K/mm3 (150-450); RBC Distribution Width CV 14.9 % (11.6-14.6); RBC Distribution Width SD 44.8 fl (35.1-43.9); Red Blood Count 4.85 M/mm3 (4.6-6.2); White Blood Count 7.9 K/mm3 (4.4-11.0)
[2023-04-13] MEDS: Lorazepam 2 MG/ML WCH Syringe 1 MG IV (12:44)
--- NOTE | 2023-04-13 12:45 | EKG12_ITS ---
Test Reason : SOB/HIGH HR Blood Pressure : / mmHG Vent. Rate : 165 BPM Atrial Rate : 000 BPM P-R Int : 000 ms QRS Dur : 078 ms QT Int : 324 ms P-R-T Axes : 000 210 167 degrees QTc Int : 536 ms Critical Test Result: High HR SINUS TACHYCARDIA with Premature ventricular complexes or Fusion complexes Right superior axis deviation Possible Right ventricular hypertrophy ST & T wave abnormality, consider lateral ischemia Abnormal ECG Confirmed by PATEL VARGAS, RACHELLE ([id number]), newspaper copy editor MARTINEZ NORIEGA ([id number]) on 04/14/2023 9:08:44 AM Referred By: SKYLER/ALEXIS Confirmed By:RACHELLE SWEENEY MD
[2023-04-13 12:54] LABS: Partial Thromboplast Time 25.7 Seconds (24.1-36.2); Prothrombin Time (Protime)PT. 13.3 SECONDS (11.7-14.9)
[2023-04-13 13:01] LABS: Anion Gap 10 (5-15); BUN 19 mg/dL (7-18); BUN/Creat Ratio 39.7 RATIO (10-20); Calcium,Total 9.2 mg/dL (8.5-10.1); Chloride 103 mmol/L (98-107); Creatinine, Serum 0.48 mg/dL (0.70-1.30); EST Glomerular Filtration Rate 205 mL/min (>60); Est Glom Filt Rate - Afr Amer 248 mL/min (>60); Estimated Creatinine Clearance 176.92 ml/min; Glucose 116 mg/dL (74-106); Sodium Level 137 mmol/L (136-145); Troponin-I HS < 3 pg/mL (3.0-78.0)
[2023-04-13 13:11] LABS: D-Dimer Quantitative (DVT/PE) < 0.27 FEU/ug/m (0.27-0.49)
[2023-04-13] MEDS: 0.9% Normal Saline (500mL Bag) 500 ML 999 ML IV (15:48)
--- NOTE | 2023-04-13 16:14 | ED.RN ---
[facility] for Transport via [facility] ambulance 30 minutes
== END 2023-04-13 17:05 | disposition home or self-care (01) ==
PROVIDERS: Emergency Provider Emergency Medicine; PCP Family Medicine; Visit Provider Emergency Medicine
DX: R00.0 Tachycardia, unspecified (principal); Z93.0 Tracheostomy status; G80.9 Cerebral palsy, unspecified; J96.11 Chronic respiratory failure with hypoxia; F41.9 Anxiety disorder, unspecified; Z99.81 Dependence on supplemental oxygen; Z79.899 Other long term (current) drug therapy; Z86.711 Personal history of pulmonary embolism
CPT/HCPCS: 36591; 71275; 80048; 84484; 85025; 85379; 85610; 85730; 93005; 96361; 96374; 99285; J7030; Q9967; A4216

== ENCOUNTER → 2023-04-19 | Outpatient (CLI) | payer MEDICARE, MEDICAID, SELFPAY ==
[2023-04-19 09:23] LABS: Absolute Lymphocyte Count 2.37 X10^3/uL (0.83-4.51); Basophil# 0.03 X10^3/uL; Basophil% 0.4 % (0-1); Eosinophil# 0.37 X10^3/uL; Hematocrit 37.2 % (40-54); Hemoglobin 11.4 g/dL (13.0-16.5); Lymphocyte # 2.37 X10^3/ul (0.83-4.51); Lymphocyte % 31.8 % (19-41); Mean Corp Hgb Conc 30.6 g/dL (32-36); Mean Corpuscular Volume 84.7 fL (80-94); Mean Platelet Vol. 10.4 fl (6.2-12.0); Monocyte% 9.4 % (0-10); NRBC Flagged by Analyzer 0 % (0-5); Neutrophil # 3.96 X10^3/uL (2.7-7.7); Platelet Count 198 K/mm3 (150-450); RBC Distribution Width CV 14.8 % (11.6-14.6); RBC Distribution Width SD 45.9 fl (35.1-43.9); Red Blood Count 4.39 M/mm3 (4.6-6.2); White Blood Count 7.5 K/mm3 (4.4-11.0)
--- OUTSIDE RECORDS SUMMARY | 2023-04-19 09:33 | XMS RPT_ITS | CCD ---
Author Name Unknown Address [address] [place] [address] Organization [facility] Care Team Providers Care Mail Deliverer Name Role Phone Aurora VARGAS, Luis Cooley Unavailable Betty Chowdhury Unavailable Unavailable RE Angela, Bella Cooley Unavailable Unavailgalo Waite MD, Berwick S Unavailable Marco CHISEL TRIMMER, Chente Unavailable Betty Chowdhury Unavailable Unavailable Betty Chowdhury Unavailable Unavailable Chente Perkins MD Primary Care Provider CHENTE PERKINS Primary Care Unavailable Yola LEAVITT Attending Unavailable CHENTE PERKINS Primary Care Unavailable Allergies Allergy Classification Reported Allergen(s) Allergy Type Date of Onset Reaction(s) Facility (16 sources) acetaminophen / codeine drug allergy 07-04-19 15 halluc[facility] Work Phone: [phone] (8 sources) cisapride drug allergy 07-04-19 15 [facility] Work Phone: [phone] (8 sources) codeine drug allergy 07-04-19 15 [facility] Work Phone: [phone] (14 sources) Dust; Translations: [DUST] allergy to substance 07-04-19 15 [facility] Work Phone: [phone] (8 sources) metroNIDAZOLE drug allergy 07-04-19 15 [facility] Work Phone: [phone] (14 sources) morphine; Translations: [ASTRAMORPH] allergy to substance 07-04-19 15 halluc[facility] Work Phone: [phone] (12 sources) morphine; Translations: [MORPHINE] drug allergy 06-23-19 06 Other: See Comments [facility] Work Phone: (14 sources) vancomycin; Translations: [VANCOMYCIN HCL] drug allergy 01-08-20 16 [facility] Work Phone: (6 sources) Cisapride; Translations: [PROPULSID] Drug Allergy 02-08-20 12 [facility] (6 sources) Codeine; Translations: [CODEINE] Drug Allergy 06-23-19 06 Other: See Comments [facility] Work Phone: (6 sources) metroNIDAZOLE; Translations: [METRONIDAZOLE HCL] Drug Allergy 05-09-19 15 [facility] Work Phone: Medications Completed/Discontinued Medications Medication [...] (5 sources) Drug therapy finding; Translations: [Other jail (current) drug therapy] Onset: 5 02-17-2021 Episodic [...] 09:39-0400 BMI (Body Mass Index) 30.27 kg/m2 [facility] Work Phone: 08-28-2016 09:39-0400 BP Diastolic 62 mm[Hg] [facility] Work Phone: 08-28-2016 09:39-0400 BP Systolic 106 mm[Hg] [facility] Work Phone: 08-28-2016 09:39-0400 Height 152.4 cm [facility] Work Phone: 08-28-2016 09:39-0400 Pulse (Heart Rate) 78 /min [facility] Work Phone: 08-28-2016 09:39-0400 Respiratory Rate 12 /min [facility] Work Phone: 08-28-2016 09:39-0400 Weight 70.31 kg Betty Chowdhury [facility] Work Phone: 06-15-2016 11:14-0400 BP Diastolic 87 mm[Hg] Chente Lara CHISEL TRIMMER [facility] Work Phone: 06-15-2016 11:14-0400 BP Systolic 111 mm[Hg] Chente Lara CHISEL TRIMMER [facility] Work Phone: 06-15-2016 11:14-0400 Pulse (Heart Rate) 60 /min Chente Lara CHISEL TRIMMER [facility] Work Phone: 06-15-2016 11:14-0400 Respiratory Rate 16 /min Chente Lara CHISEL TRIMMER [facility] Work Phone: 01-08-2016 09:55-0500 Body Temperature 97.2 [degF] Chente Lara CHISEL TRIMMER [facility] Work Phone: Encounters Encounter Date [...] Author Start: 02-22-2022 DEPRESSION ASSESSMENT DEPRESSION ASSESSMENT [facility] Start: 10-23-2021 Influenza vaccination INFLUENZA (#1) [facility] Start: 10-15-2018 Hemoglobin A1c/Hemoglobin.total in Blood HBA1C [facility] Start: 08-27-2017 End: 08-27-2017 Appointment Appointment [facility] Work Phone: Start: 08-28-2016 End: 08-28-2016 Appointment Appointment [facility] Work Phone: Start: 08-28-2016 End: 08-28-2016 *BMP *BMP [facility] Work Phone: Start: 08-28-2016 End: 08-28-2016 BNP *Brain Natriuretic Peptide BNP [facility] Work Phone: Start: 08-28-2016 End: 08-28-2016 DOCKWORKER DOCKWORKER [facility] Work Phone: Start: 08-28-2016 End: 08-28-2016 Follow Up Appt 1 year Follow Up Appt 1 year [facility] Work Phone: Start: 05-27-2016 End: 05-28-2016 aPTT *PTT-Partial Thromboplastin Time [facility] Work Phone: Start: 05-27-2016 End: 05-28-2016 CBC W Auto Differential panel - Blood *CBC [facility] Work Phone: Start: 05-27-2016 End: 05-28-2016 Coagulation factor induced.INR assay in platelet poor plasma *PT/INR [facility] Work Phone: Start: 01-08-2016 End: 01-08-2016 Bacterica wound culture *Culture and Sensitivity, wound [facility] Work Phone: Start: 04-12-2012 Hepatitis B screening URINE ALBUMIN:CREATININE RATIO [facility] Start: 04-08-2012 Hepatitis B surface antibody level LDL CHOLESTEROL [facility] Start: 04-08-2012 PNEUMOCOCCAL (2 - PCV) PNEUMOCOCCAL (2 - PCV) [facility] Start: 2001 Urine microalbumin profile DTAP,TDAP,TD (1 - Tdap) [facility] Start: 02-01-2000 ANNUAL PCP TEAM CHRONIC DISEASE VISIT ANNUAL PCP TEAM CHRONIC DISEASE VISIT [facility] Start: 02-01-2000 HIV SCREENING HIV SCREENING [facility] Start: 02-01-1992 3 comp foot exam completed DIABETIC FOOT EXAM [facility] Start: 02-01-1992 Hepatitis C antibody, confirmatory test DILATED RETINAL EXAM [facility] Start: 1982 COVID-19 VACCINE (#1) COVID-19 VACCINE (#1) [facility] Start: 1982 HEPATITIS B (1 of 3 - 3-dose series) HEPATITIS B (1 of 3 - 3-dose series) [facility] Immunizations Immunization Date Immunization Notes Care Provider Fa radha 11-08-2014 influenza, injectabl e, quadrivalent, preservative free LELIA Leavitt MD Work Phone: [facility] 12-14-2012 influenza virus vacc ine, unspecified formulation LELIA Leavitt MD Work Phone: [facility] 04-08-2011 influenza virus vacc ine, unspecified formulation LELIA Leavitt MD Work Phone: [facility] 04-08-2011 pneumococcal polysaccharide vaccine, 23 valent LELIA Leavitt MD Work Phone: [facility] Payers Date Payer Category Payer Medicare MEDICARE MEDICAR E A AND B [id number] 2020-Present [phone] [place] [address] Medicare [id number] 2020 Medicare [id number] 2018 Medicaid MEDICAID [facility] MEDICAID [id number] 2018-Present [phone] [address] [place] [address] Medicaid [id number] 2018 Medicaid [id number] 2018 Unknown [employer] BLUE ACCE SS PPO [id number] 2018-Present [phone] [address] [place] [address] PPO [id number] 2018 Unknown [id number] Social History Date Type Detail Facility Tobacco smoking status NHIS Never smoked tobacco [facility] Start: 12-27-2019 Alcohol intake Not Asked Luis Daniel iraheta [facility] Start: 1980 Sex Assigned At Not on file [facility] Medical Equipment Procedure Code Equipment Code Equipment Origin al Text Equipment Identifier Dates Catheter Ascenda 4fr .5mm Silicone 114cm 86cm Intrathecal 2 Piece Connector - [id number] Start: 04-05-2018 Pump Int Thcl 40 ml Snchr 2 Drg - [id number] Start: 03-08-2012 Pump Synchromed Ii 87.5in Titanium Silicone 26in Intrathecal [place]a - [id number] Start: 04-05-2018 Tube Shiley 10.8 mm 6.4mm 6 76mm Tracheostomy Cuff Low Pressure Fenestrate - [id number] Start: 04-20-2018 Clinical Notes 07-15-2018 to 06-30-2022 Telephone Encounter - Chichi Fowler RN - 06/30/2022 4:42 PM EDTTelephone Encounter - Amber Monreal RN - 06/30/2022 3:53 PM EDSol Cui RN - 06/15/2022 5:51 PM EDT Note Date & Type Note Facility 06-30-2022 Miscellaneous Notes [facility] nursing returned patient's mother Yue [...] e-mail. Mother will give order numbers to [facility]. Also recommended can apply stomahesive powder on mucosa. Advised maybe irritation from mucosa rubbing on pouch d/t prolapse vs the stool. Mom agreeable. Time spent: 30 minutes Chichi Fowler, RN, BSN, CWOCN [phone] Pt's mother called. She would like to discuss pt's stoma prolapse. documented in this encounter [facility] 06-15-2022 Note HNO ID: [id number] Author: Cassie Cui RN Service: ? Author [...] Requested samples from [employer] for [employer] SenSura Uriah MAXI Drainable pouch with soft outlet #[id number]. Order form provided. Also discussed use of [...] film. Pouching System: After reducing prolapse, applied [place] Hollihesive long wedges to peristomal skin, [employer]oplast post-op pouch with window, Stomahesive paste, Mefix tape to frame Wear Time: 3-4 days goal Time Increment: 1 hour 15 minutes Cassie BAL, RN, CWOCN [facility] 06-15-2022 History of Presen t illness Narrative [...] Requested samples from [employer] for [employer]oplast SenSura [place] MAXI Drainable pouch with soft outlet #[id number]. Order form provided. Also discussed use of [...] effluent Current pouching system: Jazzmine Cohesive StomaWrap, [place] New Image flat flange with tape collar [...] 15 minutes Cassie BAL, RN, CWOCN The [address] [address] Patient: Dale Diaz Patient Address: [address] [place] [address] [place] [address] Preferred Gender: male Date of : 1980 Type of Stoma: End Descending Colostomy Diagnosis: Constipation K59.0 OSTOMY SUPPLY ORDER FORM One Piece Ostomy Pouch Item Type: [employer]oplast Post-op pouch with a window #49949 30 day use - 2 Boxes Coloplast SenSura Uriah MAXI Drainable Pouch with Soft Outlet Transparent Cut-to-fit 4 #16329 30 day use - 1 Box [place] Hollihesive #[id number] 30 day use - 2 Boxes Procare Abdominal binder (62 -74 ) #[id number] 30 day use - 2 Binders OR Procare Abdominal binder (45 -62 ) #[id number] 30 day use - 2 Binders Refills: 11 Attending Physician: Dr. Leavitt For immediate authorization, please contact the physician s office. [facility] Nurse: VALERIANO Peters, OCN SIGNATURE: Cassie Cui RN PATIENT NAME: Dale Diaz DATE: June 15, 2022 TIME: 3:34 PM CONTACT #: [phone] documented in this encounter [facility] 06-15-2022 Note HNO ID: [id number] Author: Cassie Cui RN Service: ? Author Type: Registered Nurse Type: Progress Notes Filed: 06/30/2022 4:35 PM Note Text: The [address] [address] Patient: Dale Diaz Patient Address: [address] [place] [address] [place] [address] Preferred Gender: male Date of : 1980 Type of Stoma: End Descending Colostomy Diagnosis: Constipation K59.0 OSTOMY SUPPLY ORDER FORM Coloplast SenSura [place] MAXI Drainable Pouch with Soft Outlet Transparent Cut-to-fit 4 #60828 30 day use - 1 Box Coloplast Bed Drainage Bag #50330 30 day use-2 bags Knowledge Engineer #[id number] 30 day use 1 Music Agent [place] Hollihesive #9486 30 day use - 2 Boxes Procare Abdominal binder (62 -74 ) #[id number] 30 day use - 2 Binders OR Procare Abdominal binder (45 -62 ) #[id number] 30 day use - 2 Binders Refills: 11 Attending Physician: Dr. Leavitt For immediate authorization, please contact the physician?s office. [facility] Nurse: VALERIANO Peters, CWOCN Addendum by: VALERIANO Virgen, CWOCN SIGNATURE: Cassie Cui RN PATIENT NAME: Dale Diaz DATE: June 15, 2022 TIME: 3:34 PM CONTACT #: [phone] [facility] 05-06-2022 Note HNO ID: [id number] Author: Yola Leavitt MD Service: ? Author [...] 2014. He has not been seen at [facility] since 2019 when he came for parastomal [...] visit. Either the patient or their legal packaging sales representative has been informed of the risks and benefits of -- and alternatives to -- treatment through a remote evaluation and consents to proceed with the evaluation remotely. Risk of morbidity, mortality and/or complications of treatment plan: moderate I spent a total of 36 minutes on the date of the service which included preparing to see the patient and [id number] patient care. [facility] 05-06-2022 History of Presen t illness Narrative [...] 2014. He has not been seen at [facility] since 2019 when he came for parastomal [...] sigmoid colectomy with creation of end colostomy (jmaie's Procedure) PHYSICAL FINDINGS OF NOTE: Patient reported [...] included preparing to see the patient and ieic-[id number] patient care. documented in this encounter [facility] 04-14-2022 Miscellaneous Notes Called and spoke with [...] see what could be done about this,. [phone] Ashly (mom) documented in this encounter [facility] 04-14-2022 Miscellaneous Notes The patients mom stated that she can get into mychart. documented in this encounter [facility] documented as of this encounter (statuses as of 04/14/2022) [facility] History of Past illness Narrative* Problem Noted [...] latter does not explain HGB drop. - Orem removed - BP stable - MAP goal [...] to goal rate - finishing reglan 10mg n6rzbed for 24 hours today - monitor ostomy [...] of this encounter (statuses as of 04/14/2022) [facility] History of Past illness Narrative* Problem Noted [...] to goal rate - finishing reglan 10mg t0mpxxc for 24 hours today - monitor ostomy [...] of this encounter (statuses as of 05/08/2022) [facility] History of Past illness Narrative* Problem Noted [...] to goal rate - finishing reglan 10mg h1hmopm for 24 hours today - monitor ostomy [...] of this encounter (statuses as of 06/16/2022) [facility] History of Past illness Narrative* Problem Noted [...] latter does not explain HGB drop. - Orem removed - BP stable - MAP goal [...] to goal rate - finishing reglan 10mg f8icxlu for 24 hours today - monitor ostomy [...] of this encounter (statuses as of 07/01/2022) [facility] Functional disorder of stomach- Primary Unspecified functional disorder of stomach [facility] Diagnosis 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 Attention to colostomy documented in this encounter [facility] Advance Directives No Advanced Directives Records FoundLatest [...] or prosecute any alcohol or drug abuse patient.[facility] the event this information is protected by the Federal Confidentiality of Alcohol and Drug Abuse Patient Records regulations: The Federal rules restrict any use of the information to criminally investigate or prosecute any alcohol or drug abuse patient.[facility] the event this information is protected by the Federal Confidentiality of Alcohol and Drug Abuse Patient Records regulations: The Federal rules restrict any use of the information to criminally investigate or prosecute any alcohol or drug abuse patient.[facility] the event this information is protected by the Federal Confidentiality of Alcohol and Drug Abuse Patient Records regulations: The Federal rules restrict any use of the information to criminally investigate or prosecute any alcohol or drug abuse patient.[facility] the event this information is protected by the Federal Confidentiality of Alcohol and Drug Abuse Patient Records regulations: The Federal rules restrict any use of the information to criminally investigate or prosecute any alcohol or drug abuse patient.[facility] Reason for Visit (unrecogniz ed section and content) Reason Comments Patient Update Reason Comments Follow Up Reason Comments Stoma Consult Care Teams (unrecognized sec tion and content) Mail Deliverer Relationship Specialty Start Date End Date Chente Perkins MD [address] [facility] [place] [place] [id number] PCP - General 06/03/00 [facility] 05/19/18 Mail Deliverer Relationship Specialty Start Date End Date Chente Perkins MD [address] [place] [address] PCP - General 06/03/00 [facility] 05/19/18 Mail Deliverer Relationship Specialty Start Date End Date Chente Perkins MD [address] [place], [place] [id number] PCP - General 06/03/00 [facility] 05/19/18 (unrecognized sect [...] BE BASED ON THE PRIMARY CLINICAL RECORDS. [facility] [employer] [facility]. provides no warranty or guarantee of the accuracy or completeness of information in this document.
[2023-04-19 10:17] LABS: Anion Gap 5 (5-15); BUN 18 mg/dL (7-18); BUN/Creat Ratio 58.3 RATIO (10-20); Calcium,Total 8.8 mg/dL (8.5-10.1); Chloride 105 mmol/L (98-107); Creatinine, Serum 0.31 mg/dL (0.70-1.30); EST Glomerular Filtration Rate 339 mL/min (>60); Est Glom Filt Rate - Afr Amer 410 mL/min (>60); Glucose 102 mg/dL (74-106); Potassium 4.1 mmol/L (3.5-5.1); Sodium Level 138 mmol/L (136-145)
== END | disposition home or self-care (01) ==
LOC: LABSPEC 09:11
PROVIDERS: PCP Family Medicine; Referring Provider Family Medicine; Visit Provider Family Medicine
DX: E55.9 Vitamin D deficiency, unspecified (principal); K31.84 Gastroparesis
CPT/HCPCS: 80048; 85025

== ENCOUNTER → 2023-05-17 | Outpatient (CLI) | payer MEDICARE, MEDICAID, SELFPAY ==
[2023-05-17 09:26] LABS: Absolute Neutrophil Count 3.1 X10^3/uL (2.0-7.7); Basophil# 0.02 X10^3/uL; Basophil% 0.3 % (0-1); Eosinophil# 0.28 X10^3/uL; Eosinophils% 4.5 % (0-5); Hematocrit 36.6 % (40-54); Hemoglobin 11.2 g/dL (13.0-16.5); Lymphocyte % 36.7 % (19-41); Mean Corp Hgb Conc 30.6 g/dL (32-36); Mean Corpuscular Hgb 25.9 pg (27.0-32.0); Mean Corpuscular Volume 84.5 fL (80-94); Mean Platelet Vol. 10.8 fl (6.2-12.0); Monocyte# 0.51 X10^3/uL; Monocyte% 8.1 % (0-10); NRBC Flagged by Analyzer 0 % (0-5); Neutrophil # 3.13 X10^3/uL (2.7-7.7); Neutrophil % 50.1 % (47-70); Platelet Count 206 K/mm3 (150-450); RBC Distribution Width CV 14.6 % (11.6-14.6); Red Blood Count 4.33 M/mm3 (4.6-6.2); White Blood Count 6.3 K/mm3 (4.4-11.0)
[2023-05-17 09:37] LABS: Anion Gap 4 (5-15); BUN 14 mg/dL (7-18); BUN/Creat Ratio 45.9 RATIO (10-20); Calcium,Total 8.6 mg/dL (8.5-10.1); Chloride 104 mmol/L (98-107); EST Glomerular Filtration Rate 344 mL/min (>60); Est Glom Filt Rate - Afr Amer 416 mL/min (>60); Glucose 88 mg/dL (74-106); Sodium Level 139 mmol/L (136-145)
== END | disposition home or self-care (01) ==
LOC: LABSPEC 09:16
PROVIDERS: PCP Family Medicine; Visit Provider Family Medicine
DX: K31.84 Gastroparesis (principal); E55.9 Vitamin D deficiency, unspecified
CPT/HCPCS: 80048; 85025

== ENCOUNTER → 2023-06-14 | Outpatient (CLI) | payer MEDICARE, MEDICAID, SELFPAY ==
[2023-06-14 10:13] LABS: Absolute Lymphocyte Count 2.38 X10^3/uL (0.83-4.51); Absolute Neutrophil Count 3.4 X10^3/uL (2.0-7.7); Basophil# 0.02 X10^3/uL; Basophil% 0.3 % (0-1); Eosinophil# 0.29 X10^3/uL; Eosinophils% 4.3 % (0-5); Hematocrit 34.4 % (40-54); Hemoglobin 11.2 g/dL (13.0-16.5); Lymphocyte # 2.38 X10^3/ul (0.83-4.51); Lymphocyte % 35.4 % (19-41); Mean Corp Hgb Conc 32.6 g/dL (32-36); Mean Corpuscular Hgb 27.1 pg (27.0-32.0); Mean Corpuscular Volume 83.3 fL (80-94); Mean Platelet Vol. 10.4 fl (6.2-12.0); Monocyte# 0.63 X10^3/uL; Monocyte% 9.4 % (0-10); NRBC Flagged by Analyzer 0 % (0-5); Neutrophil % 50.5 % (47-70); Platelet Count 178 K/mm3 (150-450); RBC Distribution Width CV 14.7 % (11.6-14.6); RBC Distribution Width SD 44.5 fl (35.1-43.9); Red Blood Count 4.13 M/mm3 (4.6-6.2); White Blood Count 6.7 K/mm3 (4.4-11.0)
[2023-06-14 10:35] LABS: Anion Gap 4 (5-15); BUN 13 mg/dL (7-18); BUN/Creat Ratio 43.2 RATIO (10-20); Calcium,Total 8.3 mg/dL (8.5-10.1); Chloride 104 mmol/L (98-107); EST Glomerular Filtration Rate 349 mL/min (>60); Est Glom Filt Rate - Afr Amer 423 mL/min (>60); Glucose 101 mg/dL (74-106); Potassium 3.7 mmol/L (3.5-5.1); Sodium Level 139 mmol/L (136-145)
== END | disposition home or self-care (01) ==
LOC: LABSPEC 10:05
PROVIDERS: PCP Family Medicine; Visit Provider Family Medicine
DX: E55.9 Vitamin D deficiency, unspecified (principal); K31.84 Gastroparesis
CPT/HCPCS: 80048; 85025

== ENCOUNTER → 2023-07-12 | Outpatient (CLI) | payer MEDICARE, MEDICAID, SELFPAY ==
[2023-07-12 09:44] LABS: Absolute Lymphocyte Count 2.48 X10^3/uL (0.83-4.51); Absolute Neutrophil Count 2.7 X10^3/uL (2.0-7.7); Basophil# 0.02 X10^3/uL; Basophil% 0.3 % (0-1); Eosinophil# 0.32 X10^3/uL; Eosinophils% 5.2 % (0-5); Hematocrit 36.9 % (40-54); Hemoglobin 11.7 g/dL (13.0-16.5); Lymphocyte # 2.48 X10^3/ul (0.83-4.51); Lymphocyte % 40.3 % (19-41); Mean Corp Hgb Conc 31.7 g/dL (32-36); Mean Corpuscular Hgb 26.7 pg (27.0-32.0); Mean Corpuscular Volume 84.2 fL (80-94); Mean Platelet Vol. 10.5 fl (6.2-12.0); Monocyte% 9.7 % (0-10); NRBC Flagged by Analyzer 0 % (0-5); Neutrophil # 2.73 X10^3/uL (2.7-7.7); Neutrophil % 44.3 % (47-70); Platelet Count 176 K/mm3 (150-450); RBC Distribution Width CV 14.7 % (11.6-14.6); RBC Distribution Width SD 45.2 fl (35.1-43.9); Red Blood Count 4.38 M/mm3 (4.6-6.2); White Blood Count 6.2 K/mm3 (4.4-11.0)
[2023-07-12 10:16] LABS: Anion Gap 4 (5-15); BUN 16 mg/dL (7-18); BUN/Creat Ratio 51.6 RATIO (10-20); Calcium,Total 8.6 mg/dL (8.5-10.1); Chloride 102 mmol/L (98-107); Creatinine, Serum 0.31 mg/dL (0.70-1.30); EST Glomerular Filtration Rate 337 mL/min (>60); Est Glom Filt Rate - Afr Amer 408 mL/min (>60); Glucose 95 mg/dL (74-106); Potassium 3.9 mmol/L (3.5-5.1); Sodium Level 137 mmol/L (136-145)
== END | disposition home or self-care (01) ==
LOC: LABSPEC 09:25
PROVIDERS: PCP Family Medicine; Referring Provider Family Medicine; Visit Provider Family Medicine
DX: E55.9 Vitamin D deficiency, unspecified (principal); K31.84 Gastroparesis
CPT/HCPCS: 80048; 85025

== ENCOUNTER → 2023-08-09 | Outpatient (CLI) | payer MEDICARE, MEDICAID, SELFPAY ==
[2023-08-09 09:37] LABS: Absolute Lymphocyte Count 2.15 X10^3/uL (0.83-4.51); Absolute Neutrophil Count 3.2 X10^3/uL (2.0-7.7); Basophil# 0.02 X10^3/uL; Basophil% 0.3 % (0-1); Eosinophil# 0.29 X10^3/uL; Eosinophils% 4.7 % (0-5); Hematocrit 34.9 % (40-54); Hemoglobin 11.2 g/dL (13.0-16.5); Lymphocyte # 2.15 X10^3/ul (0.83-4.51); Lymphocyte % 34.5 % (19-41); Mean Corp Hgb Conc 32.1 g/dL (32-36); Mean Corpuscular Hgb 26.7 pg (27.0-32.0); Mean Corpuscular Volume 83.1 fL (80-94); Mean Platelet Vol. 10.6 fl (6.2-12.0); Monocyte# 0.53 X10^3/uL; Monocyte% 8.5 % (0-10); NRBC Flagged by Analyzer 0 % (0-5); Neutrophil # 3.22 X10^3/uL (2.7-7.7); Neutrophil % 51.7 % (47-70); Platelet Count 188 K/mm3 (150-450); RBC Distribution Width CV 14.8 % (11.6-14.6); RBC Distribution Width SD 44.8 fl (35.1-43.9); White Blood Count 6.2 K/mm3 (4.4-11.0)
[2023-08-09 09:59] LABS: Anion Gap 6 (5-15); BUN 16 mg/dL (7-18); BUN/Creat Ratio 47.9 RATIO (10-20); Calcium,Total 8.7 mg/dL (8.5-10.1); Chloride 104 mmol/L (98-107); Creatinine, Serum 0.33 mg/dL (0.70-1.30); EST Glomerular Filtration Rate 310 mL/min (>60); Est Glom Filt Rate - Afr Amer 374 mL/min (>60); Glucose 93 mg/dL (74-106); Potassium 3.7 mmol/L (3.5-5.1); Sodium Level 139 mmol/L (136-145)
== END | disposition home or self-care (01) ==
LOC: LABSPEC 09:27
PROVIDERS: PCP Family Medicine; Referring Provider Family Medicine; Visit Provider Family Medicine
DX: E55.9 Vitamin D deficiency, unspecified (principal); K31.84 Gastroparesis
CPT/HCPCS: 80048; 85025

== ENCOUNTER → 2023-09-06 | Outpatient (CLI) | payer MEDICARE, MEDICAID, SELFPAY ==
[2023-09-06 09:14] LABS: Absolute Lymphocyte Count 2.33 X10^3/uL (0.83-4.51); Absolute Neutrophil Count 2.6 X10^3/uL (2.0-7.7); Basophil# 0.01 X10^3/uL; Basophil% 0.2 % (0-1); Eosinophil# 0.29 X10^3/uL; Hematocrit 32.9 % (40-54); Hemoglobin 10.2 g/dL (13.0-16.5); Lymphocyte # 2.33 X10^3/ul (0.83-4.51); Lymphocyte % 40.5 % (19-41); Mean Corpuscular Hgb 26.4 pg (27.0-32.0); Mean Corpuscular Volume 85.2 fL (80-94); Mean Platelet Vol. 10.3 fl (6.2-12.0); Monocyte# 0.48 X10^3/uL; Monocyte% 8.3 % (0-10); NRBC Flagged by Analyzer 0 % (0-5); Neutrophil # 2.64 X10^3/uL (2.7-7.7); Neutrophil % 45.8 % (47-70); Platelet Count 163 K/mm3 (150-450); RBC Distribution Width CV 14.5 % (11.6-14.6); RBC Distribution Width SD 44.7 fl (35.1-43.9); Red Blood Count 3.86 M/mm3 (4.6-6.2); White Blood Count 5.8 K/mm3 (4.4-11.0)
[2023-09-06 10:08] LABS: Anion Gap 7 (5-15); BUN 12 mg/dL (7-18); BUN/Creat Ratio 37.6 RATIO (10-20); Calcium,Total 8.6 mg/dL (8.5-10.1); Chloride 104 mmol/L (98-107); Creatinine, Serum 0.32 mg/dL (0.70-1.30); EST Glomerular Filtration Rate 326 mL/min (>60); Est Glom Filt Rate - Afr Amer 395 mL/min (>60); Glucose 99 mg/dL (74-106); Potassium 3.2 mmol/L (3.5-5.1); Sodium Level 141 mmol/L (136-145)
== END | disposition home or self-care (01) ==
LOC: LABSPEC 09:03
PROVIDERS: PCP Family Medicine; Referring Provider Family Medicine; Visit Provider Family Medicine
DX: E55.9 Vitamin D deficiency, unspecified (principal); K31.84 Gastroparesis
CPT/HCPCS: 80048; 85025

== ENCOUNTER → 2023-09-10 | Outpatient (CLI) | payer MEDICARE, MEDICAID, SELFPAY ==
[2023-09-10 11:21] LABS: Anion Gap 7 (5-15); BUN 13 mg/dL (7-18); BUN/Creat Ratio 37.7 RATIO (10-20); Calcium,Total 8.7 mg/dL (8.5-10.1); Chloride 101 mmol/L (98-107); Creatinine, Serum 0.34 mg/dL (0.70-1.30); EST Glomerular Filtration Rate 298 mL/min (>60); Est Glom Filt Rate - Afr Amer 361 mL/min (>60); Glucose 102 mg/dL (74-106); Magnesium 2.4 mg/dL (1.6-2.6); Potassium 3.3 mmol/L (3.5-5.1); Sodium Level 138 mmol/L (136-145)
== END | disposition home or self-care (01) ==
LOC: LABSPEC 10:10
PROVIDERS: PCP Family Medicine; Referring Provider Family Medicine; Visit Provider Family Medicine
DX: E87.6 Hypokalemia (principal)
CPT/HCPCS: 80048; 83735

== ENCOUNTER → 2023-10-01 | Outpatient (CLI) | payer MEDICARE, MEDICAID, SELFPAY ==
[2023-10-01 13:04] LABS: Anion Gap 8 (5-15); BUN 11 mg/dL (7-18); BUN/Creat Ratio 36.9 RATIO (10-20); Calcium,Total 9.1 mg/dL (8.5-10.1); Chloride 103 mmol/L (98-107); EST Glomerular Filtration Rate 353 mL/min (>60); Est Glom Filt Rate - Afr Amer 427 mL/min (>60); Glucose 108 mg/dL (74-106); Potassium 3.7 mmol/L (3.5-5.1); Sodium Level 140 mmol/L (136-145)
== END | disposition home or self-care (01) ==
PROVIDERS: PCP Family Medicine; Referring Provider Family Medicine; Visit Provider Family Medicine
DX: E87.6 Hypokalemia (principal)
CPT/HCPCS: 80048

== ENCOUNTER → 2023-10-29 | Outpatient (CLI) | payer MEDICARE, MEDICAID, SELFPAY ==
[2023-10-29 11:24] LABS: Absolute Lymphocyte Count 1.48 X10^3/uL (0.83-4.51); Absolute Neutrophil Count 2.9 X10^3/uL (2.0-7.7); Basophil# 0.01 X10^3/uL; Basophil% 0.2 % (0-1); Eosinophil# 0.15 X10^3/uL; Hematocrit 33.9 % (40-54); Hemoglobin 10.7 g/dL (13.0-16.5); Lymphocyte # 1.48 X10^3/ul (0.83-4.51); Lymphocyte % 29.6 % (19-41); Mean Corp Hgb Conc 31.6 g/dL (32-36); Mean Corpuscular Hgb 27.1 pg (27.0-32.0); Mean Corpuscular Volume 85.8 fL (80-94); Mean Platelet Vol. 10.8 fl (6.2-12.0); Monocyte# 0.44 X10^3/uL; Monocyte% 8.8 % (0-10); NRBC Flagged by Analyzer 0 % (0-5); Neutrophil # 2.91 X10^3/uL (2.7-7.7); Neutrophil % 58.2 % (47-70); Platelet Count 178 K/mm3 (150-450); RBC Distribution Width CV 14.7 % (11.6-14.6); RBC Distribution Width SD 46.5 fl (35.1-43.9); Red Blood Count 3.95 M/mm3 (4.6-6.2)
[2023-10-29 11:31] LABS: Anion Gap 5 (5-15); BUN 10 mg/dL (7-18); BUN/Creat Ratio 40.3 RATIO (10-20); Calcium,Total 9.1 mg/dL (8.5-10.1); Chloride 105 mmol/L (98-107); Creatinine, Serum 0.25 mg/dL (0.70-1.30); EST Glomerular Filtration Rate 436 mL/min (>60); Est Glom Filt Rate - Afr Amer 527 mL/min (>60); Glucose 84 mg/dL (74-106); Potassium 3.7 mmol/L (3.5-5.1); Sodium Level 141 mmol/L (136-145)
== END | disposition home or self-care (01) ==
LOC: LABSPEC 09:15
PROVIDERS: PCP Family Medicine; Referring Provider Family Medicine; Visit Provider Family Medicine
DX: E55.9 Vitamin D deficiency, unspecified (principal); K31.84 Gastroparesis
CPT/HCPCS: 80048; 85025

== ENCOUNTER 2023-11-29 09:17 | Outpatient (CLI) | payer MEDICARE, MEDICAID, SELFPAY ==
[2023-11-29 09:33] LABS: Absolute Lymphocyte Count 2.26 X10^3/uL (0.83-4.51); Absolute Neutrophil Count 2.3 X10^3/uL (2.0-7.7); Basophil# 0.02 X10^3/uL; Basophil% 0.4 % (0-1); Eosinophil# 0.27 X10^3/uL; Hematocrit 34.1 % (40-54); Hemoglobin 10.8 g/dL (13.0-16.5); Lymphocyte # 2.26 X10^3/ul (0.83-4.51); Lymphocyte % 41.5 % (19-41); Mean Corp Hgb Conc 31.7 g/dL (32-36); Mean Corpuscular Hgb 27.4 pg (27.0-32.0); Mean Corpuscular Volume 86.5 fL (80-94); Mean Platelet Vol. 10.2 fl (6.2-12.0); Monocyte# 0.56 X10^3/uL; Monocyte% 10.3 % (0-10); NRBC Flagged by Analyzer 0 % (0-5); Neutrophil # 2.33 X10^3/uL (2.7-7.7); Neutrophil % 42.6 % (47-70); Platelet Count 181 K/mm3 (150-450); RBC Distribution Width CV 14.9 % (11.6-14.6); Red Blood Count 3.94 M/mm3 (4.6-6.2); White Blood Count 5.5 K/mm3 (4.4-11.0)
[2023-11-29 10:11] LABS: Vitamin B12 1571 pg/mL (211-911); Vitamin D,25 Hydroxy 35.7 ng/mL
[2023-11-29 10:32] LABS: ALB/GLOB Ratio 0.7 RATIO (0.9-2.4); AST(SGOT) 16 U/L (15-37); Alanine Aminotransfer ALT/SGPT 22 U/L (16-61); Albumin, Serum 3.2 g/dL (3.2-5.0); Alkaline Phosphatase 187 U/L (45-117); Anion Gap 7 (5-15); BUN 12 mg/dL (7-18); BUN/Creat Ratio 33.7 RATIO (10-20); Calcium,Total 8.9 mg/dL (8.5-10.1); Chloride 103 mmol/L (98-107); Creatinine, Serum 0.36 mg/dL (0.70-1.30); EST Glomerular Filtration Rate 287 mL/min (>60); Est Glom Filt Rate - Afr Amer 347 mL/min (>60); Ferritin 23 ng/mL (26-388); Globulin 4.9 g/dL (2.2-4.2); Glucose 80 mg/dL (74-106); Iron 51 ug/dL (65-175); Iron Binding Capacity,Total 287 ug/dL (250-450); Potassium 3.9 mmol/L (3.5-5.1); Protein, Total 8.1 g/dL (6.4-8.2); Sodium Level 138 mmol/L (136-145)
== END 2023-11-29 23:59 | disposition home or self-care (01) ==
LOC: LABSPEC 09:19
PROVIDERS: PCP Family Medicine; Referring Provider Family Medicine; Visit Provider Family Medicine
DX: R56.9 Unspecified convulsions (principal); E55.9 Vitamin D deficiency, unspecified; D50.9 Iron deficiency anemia, unspecified
CPT/HCPCS: 80053; 82306; 82607; 82728; 82746; 83540; 83550; 84443; 85025

== ENCOUNTER → 2023-12-28 | Outpatient (CLI) | payer MEDICARE, MEDICAID, SELFPAY ==
[2023-12-28 13:19] LABS: Absolute Lymphocyte Count 1.93 X10^3/uL (0.83-4.51); Absolute Neutrophil Count 2.5 X10^3/uL (2.0-7.7); Basophil# 0.01 X10^3/uL; Basophil% 0.2 % (0-1); Eosinophil# 0.25 X10^3/uL; Eosinophils% 4.8 % (0-5); Hematocrit 33.8 % (40-54); Hemoglobin 11.1 g/dL (13.0-16.5); Lymphocyte # 1.93 X10^3/ul (0.83-4.51); Lymphocyte % 36.9 % (19-41); Mean Corp Hgb Conc 32.8 g/dL (32-36); Mean Corpuscular Hgb 28.3 pg (27.0-32.0); Mean Corpuscular Volume 86.2 fL (80-94); Mean Platelet Vol. 11.1 fl (6.2-12.0); Monocyte# 0.52 X10^3/uL; Monocyte% 9.9 % (0-10); NRBC Flagged by Analyzer 0 % (0-5); Neutrophil % 47.8 % (47-70); Platelet Count 143 K/mm3 (150-450); RBC Distribution Width CV 15.1 % (11.6-14.6); RBC Distribution Width SD 47.1 fl (35.1-43.9); Red Blood Count 3.92 M/mm3 (4.6-6.2); White Blood Count 5.2 K/mm3 (4.4-11.0)
[2023-12-28 13:52] LABS: Anion Gap 4 (5-15); BUN 11 mg/dL (7-18); BUN/Creat Ratio 47.4 RATIO (10-20); Calcium,Total 8.7 mg/dL (8.5-10.1); Chloride 100 mmol/L (98-107); Creatinine, Serum 0.23 mg/dL (0.70-1.30); EST Glomerular Filtration Rate 470 mL/min (>60); Est Glom Filt Rate - Afr Amer 569 mL/min (>60); Glucose 88 mg/dL (74-106); Potassium 4.5 mmol/L (3.5-5.1); Sodium Level 136 mmol/L (136-145)
== END | disposition home or self-care (01) ==
LOC: LABSPEC 13:09
PROVIDERS: PCP Family Medicine; Referring Provider Family Medicine; Visit Provider Family Medicine
DX: E87.6 Hypokalemia (principal)
CPT/HCPCS: 80048; 85025

== ENCOUNTER 2024-01-04 07:10 | Inpatient (IN) | payer MEDICARE, MEDICAID, SELFPAY ==
[2024-01-04] VITALS (21 sets, daily range): BP systolic 73–167; BP diastolic 46–92; PULSE 45–128; RESP 10–25; TEMP 36.1–37.7; O2SAT 91–100; BMI 36.0
--- NOTE | 2024-01-04 07:35 | EKG12_ITS ---
Test Reason : Blood Pressure : */* mmHG Vent. Rate : 109 BPM Atrial Rate : 109 BPM P-R Int : 140 ms QRS Dur : 94 ms QT Int : 352 ms P-R-T Axes : 49 -13 41 degrees QTcB Int : 474 ms Sinus tachycardia Low voltage QRS ST & T wave abnormality, consider anterolateral ischemia Abnormal ECG Confirmed by PATEL VARGAS, RACHELLE ([id number]), technical editor MARTINEZ NORIEGA ([id number]) on 01/05/2024 8:53:24 AM Referred By: DONNA Confirmed By: RACHELLE SWEENEY MD
--- NOTE | 2024-01-04 07:35 | RAD_ITS ---
INDICATION: fever, sob EXAMINATION/TECHNIQUE: X-RAY - XR Chest 1 View COMPARISON: Prior study dated: 03/23/2023 FINDINGS: LINES/DEVICES: Tracheostomy tube and right-sided Port-A-Cath in stable position. LUNGS: No consolidation, edema or effusion. No pneumothorax. MEDIASTINUM AND CARDIOVASCULAR STRUCTURES: Cardiac silhouette not enlarged. Central airways and mediastinal contour are unremarkable. BONES AND SOFT TISSUES: Unchanged osseous structures. RAD/Chest 1 View (Portable) IMPRESSION: No radiographic evidence of acute cardiopulmonary disease. Electronically Signed: Edis Dhaliwal MD at 8:47 EST ,
--- NOTE | 2024-01-04 07:39 | EDS_ITS ---
HPI History of Present Illness Chief Complaint: General Illness Informant: family Narrative Narrative: Patient is a 43 year old male with history of cerebral palsy, colostomy, seizures respiratory failure with tracheostomy presenting with tachycardia, fever and increased O2 demands. Patient has frequent history and emergency room of aspiration pneumonia and sepsis. Mother reports that he seemed a little bit more agitated over the past few days. His heart rate at home went up to 138-140 this morning. His O2 sat went from 95% to 90%. He had a fever 100.4 at home. Mother notes that he had his baclofen and gabapentin 530 this morning and then she gave 2 mg of his Ativan at 630. She gave him Tylenol at 645. He has had stable O2 requirements on his trach. He wears 3 to 4 L on his vent and then 2 L when he is awake as a trach mask. Mother notes that he has been flushed, has increased movement of his arms and his had dry mouth. His secretions have been copious but clear with no color change. No change in his urine production. Has been having some increased issues with constipation and mother's been given drooling more frequently for this. [facility] Medical History Aspiration pneumonia Anxiety GERD (gastroesophageal reflux disease) Non-smoker On home oxygen therapy Pulmonary embolism Seizures Cerebral palsy Chronic respiratory failure with hypoxia Pseudomonas pneumonia Colostomy prolapse Cerebral palsy Acute dyspnea Anemia in chronic illness Upper GI bleeding (04/2020) Thrombocytopenia Pulmonary embolism on left (06/14/19) Iron deficiency anemia Obesity Tracheostomy in place Debility Chronic respiratory failure Edema Nonrheumatic mitral valve prolapse Redundant colon History of seizure disorder Home Medications ?Medication ?Instructions ?Recorded ?Last Taken ?Type phenobarbital 20 mg/5 mL (4 mg/mL) 60 mg G-tube 0830,2100 SEIZURES 02/19/17 01/03/24 History oral elixir metoclopramide HCl 5 mg/5 mL oral 10 mg feeding tube 0830,1600,2100 09/16/18 01/03/24 History solution STOMACH Cough Assist 1 dose .Route .MEDSUPPLY assist in 12/25/18 03/23/23 History clearing secretions oxygen concentrator 1 dose .Route .MEDSUPPLY second 12/25/18 Unknown History unit, 4 LPM cont all modalities gabapentin 250 mg/5 mL oral 500 mg G-tube 0000,0600,1200,1800 09/26/19 01/04/24 History solution SEIZURES albuterol sulfate 2.5 mg/3 mL 2.5 mg inhalation Q4H PRN Sob &/Or 11/27/20 Unknown History (0.083 %) solution for nebulization Wheezing lactose-reduced food with fiber 1,000 ml G-tube DAILY NUTRITION 11/27/20 03/23/23 History 0.06 gram-1.2 kcal/mL oral liquid plecanatide 3 mg tablet 3 mg G-tube 0830 BOWELS 11/27/20 01/02/24 History doxazosin 2 mg tablet 2 mg PO 0830 BLOOD PRESSURE 11/30/21 01/03/24 History cholecalciferol (vitamin D3) 10 15 mcg feeding tube 0830 SUPPLEMENT 03/24/22 01/03/24 History mcg/mL (400 unit/mL) oral drops acetaminophen 650 mg/20.3 mL oral 650 mg feeding tube 10/24/22 01/04/24 History suspension 0000,0600,1200,1800 PRN PAIN aluminum-mag hydroxide-simethicone 5 ml PO 0000,0600,1200,1800 PRN 10/24/22 Unknown History 200 mg-200 mg-20 mg/5 mL oral susp ANTACID baclofen 20 mg tablet 20 mg feeding tube Q6H MUSCLE 12/10/22 01/04/24 History SPASMS ondansetron 4 mg disintegrating 4 mg PO Q8H PRN NAUSEA/VOMITING 12/13/22 Unknown Rx tablet #30 tabs esomeprazole magnesium 40 mg 40 mg G-tube BID ACID REFLUX 03/23/23 01/03/24 History granules delayed release for susp (Nexium Packet) ipratropium 0.5 mg-albuterol 3 mg 3 ml inhalation Q4H PRN SOB &/OR 03/23/23 Unknown History (2.5 mg base)/3 mL nebulization WHEEZING soln Lactobacillus acidophilus 500 See Rx Instructions .Route DAILY 09/20/23 Unknown Rx million cell capsule #60 caps cetirizine 1 mg/mL oral solution 10 mg (10 mL) feeding tube 1600 09/30/23 Rx ALLERGIES #480 mL guaifenesin 200 mg/5 mL oral liquid 200 mg (5 mL) feeding tube 0830 09/30/23 01/03/24 Rx PRN COUGH/CONGESTION #118 mL montelukast 4 mg oral granules in 4 mg PO DAILY ASTHMA #90 ea 09/30/23 01/03/24 Rx packet (Singulair) lorazepam 2 mg/mL oral concentrate 2 mg feeding tube DAILY PRN 01/04/24 01/03/24 History (Lorazepam Intensol) agitation Allergy/AdvReac Type Severity Reaction Status Date / Time chlorhexidine Allergy Rash Verified 09/30/23 11:03 cisapride monohydrate (From Allergy Rash Verified 09/30/23 11:03 Propulsid) house dust Allergy NEEDS Verified 09/30/23 11:03 FOLLOW-UP metronidazole (From Flagyl) Allergy Rash Verified 09/30/23 11:03 codeine AdvReac hallucinati Verified 09/30/23 11:03 ons morphine AdvReac Hallucinati Verified 09/30/23 11:03 ons Family History Mother Hepatitis C Hypertension HIV disease Father H/O heart artery stent CAD (coronary artery disease) Atrial fibrillation Hypertension Esophageal cancer Surgical History History of eye surgery Heel cord lengthening History of soft tissue release History of open reduction and internal fixation (ORIF) procedure History of gastrostomy tube placement Status post insertion of intrathecal baclofen pump History of colostomy Colostomy in place Social History household members: family housing: house current occupational status: disabled Smoking Status: Never smoker alcohol intake: never substance use type: does not use caffeine: No ROS ROS ED ROS Narrative Limited review of systems obtained from mother. Patient unable to answer questions. Review of Systems ROS Unobtainable: due to mental status Constitutional Constitutional ED: Reports fever(s) EXAM Physical Exam Const Vital Signs: 01/04/24 07:12 01/04/24 07:17 01/04/24 07:18 Temperature 99.9 F H 99.9 F H Temperature Source Axillary Axillary Pulse Rate 113 H 108 H Respiratory Rate 18 16 Respiratory Effort Normal Respiratory Pattern Normal Blood Pressure 96/88 H 96/88 H Blood Pressure Mean 90 90 Pulse Ox 97 94 Oxygen Delivery Method Room Air T-piece 01/04/24 07:56 01/04/24 08:17 01/04/24 09:00 Temperature 99.9 F H 99.8 F H Temperature Source Axillary Axillary Pulse Rate 83 83 Respiratory Rate 20 H 18 Respiratory Effort Respiratory Pattern Blood Pressure 111/70 114/78 Blood Pressure Mean 83 90 Pulse Ox 93 93 Oxygen Delivery Method Mechanical Ventilator Mechanical Ventilator Mechanical Ventilator 01/04/24 10:00 Temperature 99.7 F H Temperature Source Axillary Pulse Rate 77 Respiratory Rate 18 Respiratory Effort Respiratory Pattern Blood Pressure 99/72 Blood Pressure Mean 81 Pulse Ox 96 Oxygen Delivery Method Mechanical Ventilator Constitutional Narrative: Chronically ill-appearing, somnolent HEENT Reports TM's clear and dry mucous membranes Tympanic Membrane ED: Yes TM's clear Mouth ED: Yes dry mucous membranes Mouth: dry mucous membranes Eyes PERRL Neck Neck Narrative: Tracheostomy in place. Area clean and dry Chest Wall inspection of chest normal Resp clear to auscultation bilaterally Resp Narrative: On trach vent currently. Effort and Inspection: Negative for retractions Auscultation: diminished lung sounds bilateral lower Cardio regular rhythm Rate: tachycardic GI GI Narrative: Nontender. Protuberant abdomen. PEG tube and colostomy in place. There is prolapse of his colostomy stoma which is chronic per parents. Auscultation: hypoactive bowel sounds Palpation: soft; Negative for tender or guarding Extremity Extremity Narrative: Chronic contractures of the extremities Neuro Neuro Narrative: Patient somnolent. No focal nerve deficits appreciated. Chronic deficits associated with cerebral palsy. Skin no rashes or lesions noted Skin Narrative: Flushed MDM MDM MDM Narrative Medical decision making narrative: Patient is evaluated for fever and tachycardia. Patient has history of aspiration pneumonia, sepsis and Pseudomonas pneumonia secondary to chronic tracheostomy and cerebral palsy. Sepsis workup is initiated. Patient initially has a soft blood pressure and is tachycardic with low-grade temperature of 99.9. Did receive Tylenol prior to arrival. Differential includes sepsis, hypovolemia, pneumonia, urinary tract infection, intra-abdominal pathology, APARNA, pericarditis/myocarditis and electrolyte derangement. Patient is given a liter IV fluids in the emergency room. Septic workup shows an elevated lactate of 2.1 but is otherwise largely negative. No clear source. Patient's tachycardia blood pressure to improve while in the emergency room. Chest x-ray viewed by myself as well as radiology does not show any acute process. COVID and flu swab negative. Patient reevaluated. We discussed that source of his fever is unclear. Mother does report that he is no change in his bowel movements recently has been more constipated. Decision made to obtain a CT of the chest abdomen pelvis to look for source of his fever. Workup largely negative. Exact cause of fever and presentation is not clear however given his medical history and risk factors I do think you benefit from antibiotic coverage and monitoring the hospital. Mother is agreeable with this. Vital signs do improve while in the emergency room. Case discussed with Dr. Posadas hospitalist who accept the patient to his service. Lab Data Attestation: I reviewed the patient's lab results. Labs: Laboratory Results - last 24 hr 01/04/24 01/04/24 07:45 08:05 WBC 6.1 RBC 3.99 L Hgb 11.0 L Hct 34.5 L MCV 86.5 MCH 27.6 MCHC 31.9 L RDW Std Deviation 46.5 H RDW Coeff of [place] 14.7 H Plt Count 179 MPV 9.7 Immature Gran % (Auto) 0.200 Neut % (Auto) 63.9 Lymph % (Auto) 25.4 [place] % (Auto) 8.0 Eos % (Auto) 2.3 Baso % (Auto) 0.2 Absolute Neuts (auto) 3.9 Absolute Lymphs (auto) 1.56 Nucleated RBC % 0 PT 14.4 INR 1.1 APTT 55.0 H Sodium 138 Potassium 3.7 Chloride 102 Carbon Dioxide 28.0 Anion Gap 8 BUN 12 Creatinine 0.43 L Estim Creat Clear Calc 202.99 Est GFR (MDRD) Af Amer 280 Est GFR (MDRD) Non-Af 231 BUN/Creatinine Ratio 28.0 H Glucose 92 Lactic Acid 2.1 H* Calcium 8.8 Total Bilirubin 0.10 L AST 17 ALT 23 Alkaline Phosphatase 171 H Troponin I High Sens 3 Total Protein 7.9 Albumin 3.1 L Globulin 4.8 H Albumin/Globulin Ratio 0.6 L Urine Color Yellow Urine Clarity Clear Urine pH 7.0 Ur Specific [place] 1.005 Urine Protein Negative Urine Glucose (UA) Normal Urine Ketones Negative Urine Occult Blood Negative Urine Nitrite Negative Urine Bilirubin Negative Urine Urobilinogen Normal Ur Leukocyte Esterase Negative Urine RBC 0 SEEN Urine WBC 0 SEEN Ur Squamous Epith Cells 0 SEEN Amorphous Sediment 1+ Urine Bacteria 0 SEEN Urine Mucus 0 SEEN Radiography Diagnostic Testing: Clinical Impression(s) from Imaging Studies Chest X-Ray 01/04/24 07:35 IMPRESSION: No radiographic evidence of acute cardiopulmonary disease. Electronically Signed: Edis Dhaliwal MD at 8:47 EST Reading Location ID and State: [facility] / [place] Tel , Service support , Chest/Abdomen/Pelvis CT 01/04/24 09:07 IMPRESSION: 1. Scattered atelectatic changes or scarring. No parenchymal consolidation or pleural effusions. 2. No focal acute inflammatory process. 3. Additional nonacute findings unchanged since prior exam. Electronically Signed: Edis Dhaliwal MD at 10:23 EST , Rhythm Strip Rhythm Strip: Sinus Tach Rate: 109 Ectopy: None EKG Initial EKG: Attestation: I personally reviewed and interpreted this EKG as follows: Interpretation: Sinus Tachycardia Comments: Sinus tachycardia rate of 109 bpm Low voltage QRS T wave inversions in precordial leads with no reciprocal changes No change to prior EKGs Discharge Plan Triage Chief Complaint: General Illness ED Provider: Mayra Shah Dx/Rx/DC Orders Clinical Impression: Fever of unknown origin (FUO), Cerebral palsy, Tachycardia, History of aspiration pneumonia, Elevated lactic acid level, Tracheostomy dependent Prescriptions: No Action albuterol sulfate 2.5 mg /3 mL (0.083 %) solution for nebulization 2.5 mg inhalation Q4H PRN (Reason: Sob &/Or Wheezing) cetirizine 1 mg/mL solution 10 mg feeding tube 1600 Qty: 480 11RF guaifenesin 200 mg/5 mL liquid 200 mg feeding tube 0830 PRN (Reason: COUGH/CONGESTION) Qty: 118 11RF montelukast [Singulair] 4 mg granules in packet 4 mg PO DAILY Qty: 90 3RF Patient Comments: NEW RX THAT HAS NOT BEEN STARTED metoclopramide HCl 5 mg/5 mL solution 10 mg feeding tube 0830,1600,2100 phenobarbital 20 MG/5 ML elixir 60 mg G-tube 0830,2100 Cough Assist 1 dose .Route .MEDSUPPLY Rx Instructions: Inspiratory and Expiratory times of 20-40 seconds with a 1-2 second pause. oxygen concentrator 1 dose .Route .MEDSUPPLY Rx Instructions: As directed lactose-reduced food with fibr 0.06 gram-1.2 kcal/mL liquid 1,000 ml G-tube DAILY Patient Comments: PER PT HOME MED LIST: JEVITY 1.2 BENNY/ML 4.5-5 CARTONS PER DAY. APPROXIMATELY 1 LITER PER DAY. 55ML/HOUR TO 65ML DURING THE DAY. SLOW THIS DOWN TO 45 ML/HOUR AT NIGHT. gabapentin 250 MG/5 ML solution 500 mg G-tube 0000,0600,1200,1800 Patient Comments: PER PT HOME MED LIST: GABAPENTIN DOSING -IF MO'S HEART RATE IS LOW I DON'T ALWAYS GIVE THE WHOLE 10ML GABAPENTIN DOSE MY GUIDES ARE: PULSE <50: I MIGHT WAIT 1 HOUR FOR HIM TO BE MORE AWAKE. GIVE 4 ML PULSE IN THE 50'S: GIVE 5ML OR 6 ML PULSE IN THE 60'S: GIVE 6ML TO 7ML PULSE 69>: GIVE THE WHOLE 10ML plecanatide 3 mg tablet 3 mg GT 0830 doxazosin 2 mg tablet 2 mg GT 0830 cholecalciferol (vitamin D3) 10 mcg/mL (400 unit/mL) drops 15 mcg feeding tube 0830 alum-mag hydroxide-simeth 200-200-20 mg/5 mL suspension 5 ml PO 0000,0600,1200,1800 PRN (Reason: ANTACID) acetaminophen 650 mg/20.3 mL suspension 650 mg feeding tube 0000,0600,1200,1800 PRN (Reason: PAIN ) lorazepam [Ativan] 2 mg/mL solution 1 mg IM DAILY PRN (Reason: AGITATION ) Rx Instructions: via g-tube baclofen 20 mg tablet 20 mg feeding tube Q6H ondansetron 4 mg tablet,disintegrating 4 mg PO Q8H PRN (Reason: NAUSEA/VOMITING) Qty: 30 0RF ipratropium-albuterol 0.5 mg-3 mg(2.5 mg base)/3 mL solution for nebulization 3 ml inhalation Q4H PRN (Reason: SOB &/OR WHEEZING) esomeprazole magnesium [Nexium Packet] [address] for susp in packet 40 mg G-tube BID Xifaxan 550 mg tablet See Rx Instructions PO TID Qty: 1320 0RF Rx Instructions: Xifaxan 20mg/ml via peg tube TID for 14 days Lactobacillus acidophilus 500 million cell capsule See Rx Instructions .ROUTE DAILY Qty: 60 3RF Rx Instructions: 2 caps by Gtube daily; dicyclomine 10 mg/5 mL solution See Rx Instructions .ROUTE Q8H Qty: 473 0RF Rx Instructions: 5ml by GTUBE every 8 hours; Primary Care Provider: Timmy Conn Referrals: Timmy Conn MD [Primary Care Provider] - Print Language: Kuwaiti Disposition Disposition: Acute Care Hospital [facility]
[2024-01-04] MEDS: 0.9% Normal Saline (1000mL) 1,000 ML 999 ML IV (07:55)
[2024-01-04 08:00] LABS: Absolute Lymphocyte Count 1.56 X10^3/uL (0.83-4.51); Absolute Neutrophil Count 3.9 X10^3/uL (2.0-7.7); Basophil# 0.01 X10^3/uL; Basophil% 0.2 % (0-1); Eosinophil# 0.14 X10^3/uL; Eosinophils% 2.3 % (0-5); Hematocrit 34.5 % (40-54); Lymphocyte # 1.56 X10^3/ul (0.83-4.51); Lymphocyte % 25.4 % (19-41); Mean Corp Hgb Conc 31.9 g/dL (32-36); Mean Corpuscular Hgb 27.6 pg (27.0-32.0); Mean Corpuscular Volume 86.5 fL (80-94); Mean Platelet Vol. 9.7 fl (6.2-12.0); Monocyte# 0.49 X10^3/uL; NRBC Flagged by Analyzer 0 % (0-5); Neutrophil # 3.93 X10^3/uL (2.7-7.7); Neutrophil % 63.9 % (47-70); Platelet Count 179 K/mm3 (150-450); RBC Distribution Width CV 14.7 % (11.6-14.6); RBC Distribution Width SD 46.5 fl (35.1-43.9); Red Blood Count 3.99 M/mm3 (4.6-6.2); White Blood Count 6.1 K/mm3 (4.4-11.0)
[2024-01-04 08:12] LABS: Bacteria 0 SEEN /hpf (None Seen); Mucous, Urine 0 SEEN /hpf (<or=2+); Red Blood Cells-Urine 0 SEEN /hpf (0-5)
[2024-01-04 08:20] LABS: ALB/GLOB Ratio 0.6 RATIO (0.9-2.4); AST(SGOT) 17 U/L (15-37); Alanine Aminotransfer ALT/SGPT 23 U/L (16-61); Albumin, Serum 3.1 g/dL (3.2-5.0); Alkaline Phosphatase 171 U/L (45-117); Anion Gap 8 (5-15); BUN 12 mg/dL (7-18); Calcium,Total 8.8 mg/dL (8.5-10.1); Chloride 102 mmol/L (98-107); Creatinine, Serum 0.43 mg/dL (0.70-1.30); EST Glomerular Filtration Rate 231 mL/min (>60); Est Glom Filt Rate - Afr Amer 280 mL/min (>60); Estimated Creatinine Clearance 202.99 ml/min; Globulin 4.8 g/dL (2.2-4.2); Glucose 92 mg/dL (74-106); Potassium 3.7 mmol/L (3.5-5.1); Protein, Total 7.9 g/dL (6.4-8.2); Sodium Level 138 mmol/L (136-145); Troponin-I HS 3 pg/mL (3.0-78.0)
[2024-01-04 08:22] LABS: Color, Urine Yellow (Yellow); Glucose, Dipstick Normal (Normal); Ketone-Dipstick Negative (Negative); Leukocyte Esterase-Dipstick Negative /ul (Negative); Nitrite-Dipstick Negative (Negative); Occult Blood-Urine Negative /ul (Negative); Protein-Dipstick Negative (Negative); Specific Gravity, Urine 1.005 (1.002-1.030); Urine Bilirubin Dipstick Negative (Negative); Urine Clarity Clear (Clear); Urine Urobilinogen Normal (Normal)
[2024-01-04 08:32] LABS: Amorphous Sediment 1+; Squamous Epithelial Cells - UA 0 SEEN /hpf (0-5); White Blood Cells 0 SEEN /hpf (0-5)
[2024-01-04 08:37] LABS: Lactic Acid 2.1 mmol/L (0.4-1.9)
[2024-01-04 08:44] LABS: International Normalized Ratio 1.1; Prothrombin Time (Protime)PT. 14.4 SECONDS (11.7-14.9)
--- NOTE | 2024-01-04 09:07 | CT_ITS ---
STUDY: CT CHEST, ABDOMEN T PELVIS WITH CONTRAST REASON FOR EXAM: Male, 43 years old. Fever, unclear source RADIATION DOSAGE (If Supplied By Facility): CTDIvol = ( 19.70 ) mGy, DLP = ( 2109.50 ) mGycm TECHNIQUE: Transaxial imaging was performed following intravenous administration of IV 100mL Isovue-370. The protocol utilizes one or more of the following dose reduction techniques: automated exposure control, adjustment of mA and/or kV according to patient size,and/or use of iterative reconstruction technique. COMPARISON: Prior studies dated: 04/13/2023, 12/10/2022 and 03/29/2022 FINDINGS: CHEST Tracheostomy tube in stable position. Focal stranding/atelectasis in the left lung apex. Atelectatic changes or scarring in the right lower lung. No evidence of pulmonary consolidation. No evidence of pleural effusions. Normal heart and pericardium. No evidence of coronary calcifications. No evidence of mediastinal adenopathy. No evidence of hilar adenopathy. No evidence of central pulmonary embolism. Normal aorta arch and descending thoracic aorta. No demonstrated acute osseous changes. ABDOMEN Normal liver. Contracted gallbladder with questionable gallstone unchanged. Normal spleen. Normal pancreas. Normal bilateral adrenal glands. Normal right kidney. Normal left kidney. Gastrostomy tube in the stomach. Normal in caliber small bowel loops. Status post right hemicolectomy with left lower quadrant colostomy. Large hernia adjacent to the colostomy site is again seen and unchanged. No evidence of bowel obstruction. There is non-visualization of the appendix. Markedly distended rectum and distal sigmoid distal to the anastomosis sutures similar in appearance to the previous examination. Normal abdominal aorta. Normal inferior vena cava. Normal retroperitoneum. PELVIS The bladder is not distended. Right inguinal hernia containing part of the bladder is again seen unchanged prior examination. There is no pelvic fluid. There is no pelvic lymphadenopathy or mass lesion. No demonstrated acute osseous changes. CT/CT Chest, Abd, Pel w/Contrast IMPRESSION: 1. Scattered atelectatic changes or scarring. No parenchymal consolidation or pleural effusions. 2. No focal acute inflammatory process. 3. Additional nonacute findings unchanged since prior exam. Electronically Signed: Edis Dhaliwal MD at 10:23 EST ,
--- NOTE | 2024-01-04 10:46 | HP.PCM.HOS_ITS ---
HPI - General General Date of Admission: 01/04/24 Date of Service: 01/04/24 Chief Complaint: Fever and rapid heart rate HPI Narrative KRISS MICHAEL, is a 43 M with multiple comorbidities including cerebral palsy, chronic hypoxic respiratory failure status post trach who is taking care of at home by his mother brought to the emergency department after patient developed low-grade fever as well as tachycardia. Workup in the emergency department was nonrevealing however patient was admitted as a case of fever of unknown origin. Patient could not provide any history given his chronic medical condition. [facility] Medical History Aspiration pneumonia Anxiety GERD (gastroesophageal reflux disease) Non-smoker On home oxygen therapy Pulmonary embolism Seizures Cerebral palsy Chronic respiratory failure with hypoxia Pseudomonas pneumonia Colostomy prolapse Cerebral palsy Acute dyspnea Anemia in chronic illness Upper GI bleeding (04/2020) Thrombocytopenia Pulmonary embolism on left (06/14/19) Iron deficiency anemia Obesity Tracheostomy in place Debility Chronic respiratory failure Edema Nonrheumatic mitral valve prolapse Redundant colon History of seizure disorder Home Medications ?Medication ?Instructions ?Recorded ?Last Taken ?Type phenobarbital 20 mg/5 mL (4 mg/mL) 60 mg G-tube 0830,2100 SEIZURES 02/19/17 01/03/24 History oral elixir metoclopramide HCl 5 mg/5 mL oral 10 mg feeding tube 0830,1600,2100 09/16/18 01/03/24 History solution STOMACH Cough Assist 1 dose .Route .MEDSUPPLY assist in 12/25/18 03/23/23 History clearing secretions oxygen concentrator 1 dose .Route .MEDSUPPLY second 12/25/18 Unknown History unit, 4 LPM cont all modalities gabapentin 250 mg/5 mL oral 500 mg G-tube 0000,0600,1200,1800 09/26/19 01/04/24 History solution SEIZURES albuterol sulfate 2.5 mg/3 mL 2.5 mg inhalation Q4H PRN Sob &/Or 11/27/20 Unknown History (0.083 %) solution for nebulization Wheezing lactose-reduced food with fiber 1,000 ml G-tube DAILY NUTRITION 11/27/20 03/23/23 History 0.06 gram-1.2 kcal/mL oral liquid plecanatide 3 mg tablet 3 mg G-tube 0830 BOWELS 11/27/20 01/02/24 History doxazosin 2 mg tablet 2 mg PO 0830 BLOOD PRESSURE 11/30/21 01/03/24 History cholecalciferol (vitamin D3) 10 15 mcg feeding tube 0830 SUPPLEMENT 03/24/22 01/03/24 History mcg/mL (400 unit/mL) oral drops acetaminophen 650 mg/20.3 mL oral 650 mg feeding tube 10/24/22 01/04/24 History suspension 0000,0600,1200,1800 PRN PAIN aluminum-mag hydroxide-simethicone 5 ml PO 0000,0600,1200,1800 PRN 10/24/22 Unknown History 200 mg-200 mg-20 mg/5 mL oral susp ANTACID baclofen 20 mg tablet 20 mg feeding tube Q6H MUSCLE 12/10/22 01/04/24 History SPASMS ondansetron 4 mg disintegrating 4 mg PO Q8H PRN NAUSEA/VOMITING 12/13/22 Unknown Rx tablet #30 tabs esomeprazole magnesium 40 mg 40 mg G-tube BID ACID REFLUX 03/23/23 01/03/24 History granules delayed release for susp (Nexium Packet) ipratropium 0.5 mg-albuterol 3 mg 3 ml inhalation Q4H PRN SOB &/OR 03/23/23 Unknown History (2.5 mg base)/3 mL nebulization WHEEZING soln Lactobacillus acidophilus 500 See Rx Instructions .Route DAILY 09/20/23 Unknown Rx million cell capsule #60 caps cetirizine 1 mg/mL oral solution 10 mg (10 mL) feeding tube 1600 09/30/23 01/03/24 Rx ALLERGIES #480 mL guaifenesin 200 mg/5 mL oral liquid 200 mg (5 mL) feeding tube 0830 09/30/23 01/03/24 Rx PRN COUGH/CONGESTION #118 mL montelukast 4 mg oral granules in 4 mg PO DAILY ASTHMA #90 ea 09/30/23 01/03/24 Rx packet (Singulair) lorazepam 2 mg/mL oral concentrate 2 mg feeding tube DAILY PRN 01/04/24 01/03/24 History (Lorazepam Intensol) agitation Allergy/AdvReac Type Severity Reaction Status Date / Time chlorhexidine Allergy Rash Verified 09/30/23 11:03 cisapride monohydrate (From Allergy Rash Verified 09/30/23 11:03 Propulsid) house dust Allergy NEEDS Verified 09/30/23 11:03 FOLLOW-UP metronidazole (From Flagyl) Allergy Rash Verified 09/30/23 11:03 codeine AdvReac hallucinati Verified 09/30/23 11:03 ons morphine AdvReac Hallucinati Verified 09/30/23 11:03 ons Family History Mother Hepatitis C Hypertension HIV disease Father H/O heart artery stent CAD (coronary artery disease) Atrial fibrillation Hypertension Esophageal cancer Surgical History History of eye surgery Heel cord lengthening History of soft tissue release History of open reduction and internal fixation (ORIF) procedure History of gastrostomy tube placement Status post insertion of intrathecal baclofen pump History of colostomy Colostomy in place Social History household members: family housing: house current occupational status: disabled Smoking Status: Never smoker alcohol intake: never substance use type: does not use caffeine: No ROS ROS Narrative Unable to obtain Vital Signs Vital Signs Vital Signs: 01/04/24 07:12 01/04/24 07:17 01/04/24 07:18 Temperature 99.9 F H 99.9 F H Temperature Source Axillary Axillary Pulse Rate 113 H 108 H Respiratory Rate 18 16 Respiratory Effort Normal Respiratory Pattern Normal Blood Pressure 96/88 H 96/88 H Blood Pressure Mean 90 90 Pulse Ox 97 94 Oxygen Delivery Method Room Air T-piece 01/04/24 07:56 01/04/24 08:17 01/04/24 09:00 Temperature 99.9 F H 99.8 F H Temperature Source Axillary Axillary Pulse Rate 83 83 Respiratory Rate 20 H 18 Respiratory Effort Respiratory Pattern Blood Pressure 111/70 114/78 Blood Pressure Mean 83 90 Pulse Ox 93 93 Oxygen Delivery Method Mechanical Ventilator Mechanical Ventilator Mechanical Ventilator 01/04/24 10:00 Temperature 99.7 F H Temperature Source Axillary Pulse Rate 77 Respiratory Rate 18 Respiratory Effort Respiratory Pattern Blood Pressure 99/72 Blood Pressure Mean 81 Pulse Ox 96 Oxygen Delivery Method Mechanical Ventilator Weight Weight: 83.7 kg Body Mass Index (BMI) 36.0 Physical Exam Narrative GENERAL: Noncommunicative HEENT: Atraumatic; normal conjunctiva EYES; Anicteric, Normal Conjunctiva NECK; trach in place RESPIRATORY: Diminished to auscultation CARDIOVASCULAR: Regular S1 S2, GI: soft, normoactive bowel sounds, : No Renal angle tenderness; EXTREMITIES: No edema, no clubbing, MUSCULOSKELETAL: Contractures NEURO: Awake; noncommunicative SKIN: No Rash Results Lab / Micro Data 01/04/24 07:45 01/04/24 07:45 Labs: Laboratory Results - last 24 hr 01/04/24 07:45: WBC 6.1, RBC 3.99 L, Hgb 11.0 L, Hct 34.5 L, MCV 86.5, MCH 27.6, MCHC 31.9 L, RDW Std Deviation 46.5 H, RDW Coeff of [place]ilee 14.7 H, Plt Count 179, MPV 9.7, Immature Gran % (Auto) 0.200, Neut % (Auto) 63.9, Lymph % (Auto) 25.4, [place] % (Auto) 8.0, Eos % (Auto) 2.3, Baso % (Auto) 0.2, Absolute Neuts (auto) 3.9, Absolute Lymphs (auto) 1.56, Nucleated RBC % 0, PT 14.4, INR 1.1, APTT 55.0 H, Sodium 138, Potassium 3.7, Chloride 102, Carbon Dioxide 28.0, Anion Gap 8, BUN 12, Creatinine 0.43 L, Estim Creat Clear Calc 202.99, Est GFR (MDRD) Af Amer 280, Est GFR (MDRD) Non-Af 231, BUN/Creatinine Ratio 28.0 H, Glucose 92, Lactic Acid 2.1 H*, Calcium 8.8, Total Bilirubin 0.10 L, AST 17, ALT 23, Alkaline Phosphatase 171 H, Troponin I High Sens 3, Total Protein 7.9, Albumin 3.1 L, G lobulin 4.8 H, Albumin/Globulin Ratio 0.6 L 01/04/24 08:05: Urine Color Yellow, Urine Clarity Clear, Urine pH 7.0, Ur Specific [place] 1.005, Urine Protein Negative, Urine Glucose (UA) Normal, Urine Ketones Negative, Urine Occult Blood Negative, Urine Nitrite Negative, Urine Bilirubin Negative, Urine Urobilinogen Normal, Ur Leukocyte Esterase Negative, Urine RBC 0 SEEN, Urine WBC 0 SEEN, Ur Squamous Epith Cells 0 SEEN, Amorphous Sediment 1+, Urine Bacteria 0 SEEN, Urine Mucus 0 SEEN Micro: Microbiology 01/04/24 08:00 Mucosa - Nasopharyngeal SARS-CoV-2, Influenza & RSV (PCR) - Final Rhythm Strip Rhythm Strip: Sinus Tach Rate: 109 Ectopy: None Imaging Radiology Impression Chest X-Ray 01/04/24 07:35 IMPRESSION: No radiographic evidence of acute cardiopulmonary disease. Electronically Signed: Edis Dhaliwal MD at 8:47 EST , Chest/Abdomen/Pelvis CT 01/04/24 09:07 IMPRESSION: 1. Scattered atelectatic changes or scarring. No parenchymal consolidation or pleural effusions. 2. No focal acute inflammatory process. 3. Additional nonacute findings unchanged since prior exam. Electronically Signed: Edis Dhaliwal MD at 10:23 EST , Assessment & Plan Assessment/Plan (1) Fever of unknown origin (FUO): PLAN: Plan Patient is a 43-year-old gentleman with history of cerebral palsy with quadriplegia and chronic respiratory failure vent dependent admitted with fever and tachycardia 1. Acute febrile illness ? Etiology not clear at this point imaging studies obtained demonstrated scattered atelectatic changes or scarring. No parenchymal consolidation or pleural effusions. Admitted to monitored bed ordered viral respiratory panel as well as cultures. Patient started on empiric antibiotic therapy for possible bronchitis 2. Elevated lactic acid levels ? Secondary to patient acute febrile illness patient does not meet criteria for sepsis 3. Chronic respiratory failure ? Secondary to cerebral palsy patient is vent dependent. Plan is to continue with patient home vent settings well as inpatient 4. 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 Seizure disorder ? On phenobarb and gabapentin and Ativan 6. Chronic dysphagia ? Status post PEG tube. Currently on Jevity 1.2 nery/ml rate 65 cc during the day and 45 cc. Denies with 100 cc water flushes throughout the day 7. GERD ? On PPI continue 8. DVT prophylaxis ? Lovenox Time spent in the patient's overall evaluation,decision-making process, review of diagnostic data, adjustment of management, discussion with other providers, nursing nursing and ancillary staff involved in patient's care documentation, 75 Minutes CODE STATUS; full code Charges/Coding Visit Charges Inpatient E&M: 99841 Init Hosp L3
[2024-01-04] MEDS: Ceftriaxone 1 GM/50 ML BAG IV (11:06)
[2024-01-04 11:54] LABS: Reflex Lactate? Y
[2024-01-04] MEDS: Azithromycin 500 MG in Dextrose 5%-Water (250mL Bag) 250 ML 250 MG IV (12:13)
[2024-01-04 13:02] LABS: Lactic Acid 1.2 mmol/L (0.4-1.9)
--- NOTE | 2024-01-04 13:34 | SEPSISATNOTE ---
Sepsis Attestation Sepsis Alert: Yes Date exam was performed: 01/04/24 Time exam was performed: 11:00 Possible Source of Sepsis: Pulmonary Sepsis Organ Dysfunction Criteria Present: SBP < 90 mmHg or MAP < 65 mmHg Supportive Findings: Patient is a 43-year-old gentleman admitted with fever of unknown origin patient blood pressure and temperature on admission was normal however became hypotensive after being transferred to the intensive care unit with systolic blood pressure being 73/46. Sepsis protocol was initiated patient resuscitated with IV fluids per protocol and transferred to the intensive care unit. Cultures had already been sent from the emergency department prior to patient being transferred from the progressive care unit to the intensive care unit Fluid Resuscitation Fluid resuscitation indicated?: Yes Fluid Resuscitation ordered: 30 ml/kg fluid bolus ordered Amount of fluid ordered: 2,520 Sepsis Note Date exam was performed: 01/04/24 Time exam was performed: 13:00 Sepsis Attestation: Sepsis re-evaluation was performed Response to fluids: Fluid responsive hypotension
[2024-01-04] MEDS: Phenobarbital 20 MG/5 ML UDC 60 MG GT ×2 (14:06→21:00)
[2024-01-04 14:13] LABS: Lactic Acid 0.9 mmol/L (0.4-1.9)
[2024-01-04] MEDS: Ipratropium/Albuterol Sulfate 3 ML AMPUL.NEB INHALATION (14:14)
[2024-01-04] MEDS: CETIRIZINE HCL 1 MG/ML 10 MG GT (14:18)
[2024-01-04] MEDS: Jevity 1.5 1,000 ML 60 ML GT (14:23)
--- NOTE | 2024-01-04 14:31 | EX.PCM.CONCC ---
Assessment & Plan Assessment/Plan (1) Fever of unknown origin (FUO): PLAN: Plan RECOMMENDATIONS: 1. Continue antibiotics x 24 hours pending culture results. 2. Continue baseline ventilatory support. 3. Continue nutritional support via tube feeding. 4. No need for sepsis fluid resuscitation. IMPRESSIONS: 1. Low-grade fever of unclear etiology/chronic respiratory failure The patient initially presented to the hospital with increasing fussiness along with mild tachycardia and low-grade fever. However, no definitive source of infection has yet to be identified. CT chest/abdomen/pelvis was unrevealing. Although the patient had 1 reported low blood pressure reading, I do suspect that this was erroneous in nature. I do not feel that the patient requires full sepsis fluid resuscitation as he is now back to his baseline from a hemodynamic perspective. I am very doubtful that the patient has sepsis. Rather, I suspect that he may have had a component of mild hypovolemia which responded to fluid resuscitation. For now, antibiotics will be continued for 24 hours pending culture results. Viral panel will be completed. Otherwise, continue home ventilatory support. The patient appears quite comfortable and at his baseline from a clinical perspective. 2. Cerebral palsy with spastic quadriplegia/seizure disorder/GERD/anemia/history of candidal esophagitis Complicates care, management, recovery and prognosis. Continue home medications as indicated. This note was generated with [employer] dictation software. It may contain incorrect words, spelling, and punctuation that were not noted in checking the note before signing. HPI Consult Data Date of Consult: 01/04/24 HPI Narrative Reason for Consultation: Sepsis HPI Narrative: The patient is a 43-year-old male, with a history as outlined below, who presented to the emergency department via EMS on January 03 with tachycardia and low-grade fever, according to the patient's mother. She reported that the patient awoke this morning and was extra fussy. She reported that she provided him with extra gabapentin and Ativan without resolution of symptoms. She then went on to report that the patient was tachycardic with a heart rate in the 130s. She reported that she has not been suctioning any tenacious thick secretions. The patient is otherwise stable at his baseline and tolerating tube feeding. His ventilator requirements are baseline. On presentation to the emergency department, the patient was documented to have a low-grade fever of 99.9 ?F. He was mildly tachycardic with a heart rate of 113 but otherwise hemodynamically stable. Laboratory evaluation revealed a normal white blood cell count. Platelet count was within normal limits. Chemistry profile was unrevealing. Lactate was noted to be 2.1. Urine analysis was noncontributory. CT chest/abdomen/pelvis demonstrated no acute findings. The patient was provided with 1 L of IV fluids. The patient was placed on antimicrobials. However, no definitive source of infection has yet to be identified. Although the patient was initially admitted to the progressive care unit, the patient had 1 below documented blood pressure reading at 1231 hrs. of 73/46 mmHg, which prompted his redirection to the intensive care unit. Nevertheless, on arrival to the ICU, the patient was noted to have a normal baseline blood pressure. The patient was not tachycardic. He appears to be at his baseline. [facility] Medical History Aspiration pneumonia Anxiety GERD (gastroesophageal reflux disease) Non-smoker On home oxygen therapy Pulmonary embolism Seizures Cerebral palsy Chronic respiratory failure with hypoxia Pseudomonas pneumonia Colostomy prolapse Cerebral palsy Acute dyspnea Anemia in chronic illness Upper GI bleeding (04/2020) Thrombocytopenia Pulmonary embolism on left (06/14/19) Iron deficiency anemia Obesity Tracheostomy in place Debility Chronic respiratory failure Edema Nonrheumatic mitral valve prolapse Redundant colon History of seizure disorder Home Medications ?Medication ?Instructions ?Recorded ?Last Taken ?Type phenobarbital 20 mg/5 mL (4 mg/mL) 60 mg G-tube 0830,2100 SEIZURES 02/19/17 01/03/24 History oral elixir metoclopramide HCl 5 mg/5 mL oral 10 mg feeding tube 0830,1600,2100 09/16/18 01/03/24 History solution STOMACH Cough Assist 1 dose .Route .MEDSUPPLY assist in 12/25/18 03/23/23 History clearing secretions oxygen concentrator 1 dose .Route .MEDSUPPLY second 12/25/18 Unknown History unit, 4 LPM cont all modalities gabapentin 250 mg/5 mL oral 500 mg G-tube 0000,0600,1200,1800 09/26/19 01/04/24 History solution SEIZURES albuterol sulfate 2.5 mg/3 mL 2.5 mg inhalation Q4H PRN Sob &/Or 11/27/20 Unknown History (0.083 %) solution for nebulization Wheezing lactose-reduced food with fiber 1,000 ml G-tube DAILY NUTRITION 11/27/20 03/23/23 History 0.06 gram-1.2 kcal/mL oral liquid plecanatide 3 mg tablet 3 mg G-tube 0830 BOWELS 11/27/20 01/02/24 History doxazosin 2 mg tablet 2 mg PO 0830 BLOOD PRESSURE 11/30/21 01/03/24 History cholecalciferol (vitamin D3) 10 15 mcg feeding tube 0830 SUPPLEMENT 03/24/22 01/03/24 History mcg/mL (400 unit/mL) oral drops acetaminophen 650 mg/20.3 mL oral 650 mg feeding tube 10/24/22 01/04/24 History suspension 0000,0600,1200,1800 PRN PAIN aluminum-mag hydroxide-simethicone 5 ml PO 0000,0600,1200,1800 PRN 10/24/22 Unknown History 200 mg-200 mg-20 mg/5 mL oral susp ANTACID baclofen 20 mg tablet 20 mg feeding tube Q6H MUSCLE 12/10/22 01/04/24 History SPASMS ondansetron 4 mg disintegrating 4 mg PO Q8H PRN NAUSEA/VOMITING 12/13/22 Unknown Rx tablet #30 tabs esomeprazole magnesium 40 mg 40 mg G-tube BID ACID REFLUX 03/23/23 01/03/24 History granules delayed release for susp (Nexium Packet) ipratropium 0.5 mg-albuterol 3 mg 3 ml inhalation Q4H PRN SOB &/OR 03/23/23 Unknown History (2.5 mg base)/3 mL nebulization WHEEZING soln Lactobacillus acidophilus 500 See Rx Instructions .Route DAILY 09/20/23 Unknown Rx million cell capsule #60 caps cetirizine 1 mg/mL oral solution 10 mg (10 mL) feeding tube 1600 09/30/23 01/03/24 Rx ALLERGIES #480 mL guaifenesin 200 mg/5 mL oral liquid 200 mg (5 mL) feeding tube 0830 09/30/23 01/03/24 Rx PRN COUGH/CONGESTION #118 mL montelukast 4 mg oral granules in 4 mg PO DAILY ASTHMA #90 ea 09/30/23 01/03/24 Rx packet (Singulair) lorazepam 2 mg/mL oral concentrate 2 mg feeding tube DAILY PRN 01/04/24 01/03/24 History (Lorazepam Intensol) agitation Allergy/AdvReac Type Severity Reaction Status Date / Time chlorhexidine Allergy Rash Verified 09/30/23 11:03 cisapride monohydrate (From Allergy Rash Verified 09/30/23 11:03 Propulsid) house dust Allergy NEEDS Verified 09/30/23 11:03 FOLLOW-UP metronidazole (From Flagyl) Allergy Rash Verified 09/30/23 11:03 codeine AdvReac hallucinati Verified 09/30/23 11:03 ons morphine AdvReac Hallucinati Verified 09/30/23 11:03 ons Family History Mother Hepatitis C Hypertension HIV disease Father H/O heart artery stent CAD (coronary artery disease) Atrial fibrillation Hypertension Esophageal cancer Surgical History History of eye surgery Heel cord lengthening History of soft tissue release History of open reduction and internal fixation (ORIF) procedure History of gastrostomy tube placement Status post insertion of intrathecal baclofen pump History of colostomy Colostomy in place Social History household members: family housing: house current occupational status: disabled Smoking Status: Never smoker alcohol intake: never substance use type: does not use caffeine: No ROS Review of Systems ROS Unobtainable: due to mental status Physical Exam Const alert Constitutional Narrative: Nonverbal at baseline. Resting comfortably in bed with mother at the bedside. HEENT head/scalp atraumatic and moist oral mucous membranes Eyes conjunctivae normal and no scleral icterus Neck supple Neck Narrative: Tracheostomy site intact. Chest inspection of chest normal Resp normal respiratory effort Auscultation: Negative for rales, rhonchi or wheezes Cardio S1 normal heart sound and S2 normal heart sound Rate: bradycardia GI normal to inspection, nondistended, normoactive bowel sounds Inspection: GI tube present Extremity Extremity Narrative: Baseline contractures noted. General Extremity: Negative for clubbing or edema Skin no rashes or lesions noted Neuro Neuro Narrative: Appears to be at his baseline from a neurologic perspective. Lab / Micro Data 01/04/24 07:45 01/04/24 07:45 Labs: Laboratory Results - last 24 hr 01/04/24 07:45: WBC 6.1, RBC 3.99 L, Hgb 11.0 L, Hct 34.5 L, MCV 86.5, MCH 27.6, MCHC 31.9 L, RDW Std Deviation 46.5 H, RDW Coeff of [place] 14.7 H, Plt Count 179, MPV 9.7, Immature Gran % (Auto) 0.200, Neut % (Auto) 63.9, Lymph % (Auto) 25.4, [place] % (Auto) 8.0, Eos % (Auto) 2.3, Baso % (Auto) 0.2, Absolute Neuts (auto) 3.9, Absolute Lymphs (auto) 1.56, Nucleated RBC % 0, PT 14.4, INR 1.1, APTT 55.0 H, Sodium 138, Potassium 3.7, Chloride 102, Carbon Dioxide 28.0, Anion Gap 8, BUN 12, Creatinine 0.43 L, Estim Creat Clear Calc 202.99, Est GFR (MDRD) Af Amer 280, Est GFR (MDRD) Non-Af 231, BUN/Creatinine Ratio 28.0 H, Glucose 92, Lactic Acid 2.1 H*, Calcium 8.8, Total Bilirubin 0.10 L, AST 17, ALT 23, Alkaline Phosphatase 171 H, Troponin I High Sens 3, Total Protein 7.9, Albumin 3.1 L, Globulin 4.8 H, Albumin/Globulin Ratio 0.6 L 01/04/24 08:05: Urine Color Yellow, Urine Clarity Clear, Urine pH 7.0, Ur Specific [place] 1.005, Urine Protein Negative, Urine Glucose (UA) Normal, Urine Ketones Negative, Urine Occult Blood Negative, Urine Nitrite Negative, Urine Bilirubin Negative, Urine Urobilinogen Normal, Ur Leukocyte Esterase Negative, Urine RBC 0 SEEN, Urine WBC 0 SEEN, Ur Squamous Epith Cells 0 SEEN, Amorphous Sediment 1+, Urine Bacteria 0 SEEN, Urine Mucus 0 SEEN 01/04/24 12:08: Lactic Acid 1.2 01/04/24 13:42: Lactic Acid 0.9 Micro: Microbiology 01/04/24 08:00 Mucosa - Nasopharyngeal SARS-CoV-2, Influenza & RSV (PCR) - Final Rhythm Strip Rhythm Strip: Sinus Tach Rate: 109 Ectopy: None Imaging Radiology Impression Chest X-Ray 01/04/24 07:35 IMPRESSION: No radiographic evidence of acute cardiopulmonary disease. Electronically Signed: Edis Dhaliwal MD at 8:47 EST , Chest/Abdomen/Pelvis CT 01/04/24 09:07 IMPRESSION: 1. Scattered atelectatic changes or scarring. No parenchymal consolidation or pleural effusions. 2. No focal acute inflammatory process. 3. Additional nonacute findings unchanged since prior exam. Electronically Signed: Edis Dhaliwal MD at 10:23 EST , Charges/Coding Visit Charges Inpatient E&M: 49816 Init Hosp L3
[2024-01-04] MEDS: Metoclopramide 10 MG/10 ML UDC GT ×2 (16:31→20:59)
--- NOTE | 2024-01-04 16:41 | CASEMGMT ---
Care Management Face to Face with patients guardian for initial transition planning/care coordination assessment.? This typewriter repairer introduced self and role at [facility]. Patients guardian willing to participate in assessment and is able to answer all questions appropriately.? Care providers, pharmacy, and demographics verified. Admitting Diagnosis: General Illness Other diagnosis history: Cerebral palsy, tracheostomy, aspiration pneumonia, chronic respiratory distress PCP: Dr. Rodriguez Specialists: Dr. Gregory, GI; Dr. Moreira, Pulmonary; Dr. Katz, ENT Preferred Pharmacy: [facility] pharmacy Insurance: Medicare A and B, Medicaid Prescription Benefit:? [employer] Medicare part D Living Will/HPOA: Patient has two guardians, but no Living Will. Mother is not interested in completing one. LNOK: Yue Diaz Living Arrangements: ?Single story home, ramps at all entrances.? Transportation: Both parents/guardians drive, they have a handicap accessible van DME/HHC: Guardian states they have their house completely handicap accessible with all equipment that their son needs including tracks in the ceiling. Patient also has a [employer] that is an eye-gaze communication board. Patient has an BREASTFEEDING PEER COUNSELOR through [facility] that is there every , Wed and and every other Wednesday.? They have 2 independent aides, one through [facility] and one individually contracted.? Between both aides, one is in the home Wednesday ? Wednesday and every other weekend. They also have an aide overnight , Fridays, and Saturdays.?? Patient has OT and ST also through [facility] that is both there one day a week. Community Resources:? patient manager through [facility] Patient goals: Patient guardian wishes to discharge home.? Guardian states she has no further needs or concerns at this this time. Disposition Plan: CM to follow for discharge planning needs that may arise. Christy Lindsay, ASSEMBLER BODY, METAL CRAFTS TEACHER
[2024-01-04] MEDS: Baclofen 10 MG Tablet 20 MG GT ×2 (18:06→23:51)
[2024-01-04] MEDS: GABAPENTIN 250 MG/5 ML SOLUTION 500 MG GT ×2 (18:06→23:51)
[2024-01-04] MEDS: ESOMEPRAZOLE MAGNESIUM 40 MG SUSPDR.PKT GT (21:00)
[2024-01-04] MEDS: Acetaminophen 325 MG Tablet 650 MG GT (22:50)
[2024-01-04] MEDS: LORazepam 2 MG/ML Bottle GT (22:50)
[2024-01-05] VITALS (17 sets, daily range): BP systolic 96–167; BP diastolic 54–105; PULSE 88–141; RESP 13–27; TEMP 36.6–38.6; O2SAT 94–99; BMI 35.6
[2024-01-05] MEDS: Ondansetron 4 MG/2 ML Vial IV (00:05)
[2024-01-05] MEDS: 0.9% Normal Saline (1000mL) 1,000 ML 999 ML IV (01:00)
--- NOTE | 2024-01-05 02:06 | PCM.HOSP.N ---
Hospitalist Note Given ongoing tachycardia and fever, will change empiric coverage based on prior Cx including sputum Cx w/ Pseudomonas to IV Zosyn and IV vancomycin however will obtain MRSA screen and if negative de-escalate off of vancomycin. From review of workup no obvious clear etiology.
[2024-01-05] MEDS: Vancomycin HCl 2,000 MG in 0.9% Normal Saline (500mL Bag) 500 ML 250 MG IV (02:37)
[2024-01-05] MEDS: Acetaminophen 325 MG Tablet 650 MG GT ×2 (03:30→18:46)
[2024-01-05] MEDS: Ketorolac 15 MG/ML Vial IV (03:30)
--- NOTE | 2024-01-05 03:31 | PCM.RX.CS ---
Consult Antibiotic Management Pharmacy has been consulted to manage selected antibiotic: Vancomycin Type of Intervention Type of Consult: New start Labs Labs: Sodium 138 mmol/L (136-145) 01/04/24 07:45 Potassium 3.7 mmol/L (3.5-5.1) 01/04/24 07:45 Chloride 102 mmol/L (98-107) 01/04/24 07:45 Carbon Dioxide 28.0 mmol/L (21.0-32.0) 01/04/24 07:45 Anion Gap 8 (5-15) 01/04/24 07:45 BUN 12 mg/dL (7-18) 01/04/24 07:45 Creatinine 0.43 mg/dL (0.70-1.30) L 01/04/24 07:45 Est GFR (MDRD) Af Amer 280 mL/min (>60) 01/04/24 07:45 Est GFR (MDRD) Non-Af 231 mL/min (>60) 01/04/24 07:45 BUN/Creatinine Ratio 28.0 RATIO (10-20) H 01/04/24 07:45 Glucose 92 mg/dL (74-106) 01/04/24 07:45 Microbiology Microbiology: Microbiology 01/04/24 21:27 Sputum, Induced/Lukens Gram Stain - Preliminary 01/04/24 14:33 Mucosa - Nose Respiratory Panel (PCR) - Final 01/04/24 08:05 Urine Catheter - Catheter Legionella Antigen - Final 01/04/24 08:05 Urine Catheter - Catheter Streptococcus pneumoniae Antigen (M - Final 01/04/24 08:00 Mucosa - Nasopharyngeal SARS-CoV-2, Influenza & RSV (PCR) - Final Dosing Weight Weight used for dosin.7 kg Estimated Creatinine Clearance Estimated Creatinine Clearance: 203 Goal Trough Goal Trough: 15-20 mcg/mL Pharmacy Plan for Drug Dosing Pharmacy Plan for Drug Dosing: Pharmacy Service will continue to monitor and adjust dosing as required. Follow-Up Labs Follow-Up Labs: Trough: Vancomycin Date/Time Labs Ordered Labs to be done on [date and time ordered]: 01/06/24 @0200
[2024-01-05 03:48] LABS: Absolute Lymphocyte Count 1.39 X10^3/uL (0.83-4.51); Absolute Neutrophil Count 7.6 X10^3/uL (2.0-7.7); Basophil# 0.02 X10^3/uL; Basophil% 0.2 % (0-1); Eosinophil# 0.02 X10^3/uL; Eosinophils% 0.2 % (0-5); Hematocrit 32.2 % (40-54); Hemoglobin 10.6 g/dL (13.0-16.5); Lymphocyte # 1.39 X10^3/ul (0.83-4.51); Lymphocyte % 14.3 % (19-41); Mean Corp Hgb Conc 32.9 g/dL (32-36); Monocyte# 0.69 X10^3/uL; Monocyte% 7.1 % (0-10); NRBC Flagged by Analyzer 0 % (0-5); Neutrophil # 7.55 X10^3/uL (2.7-7.7); Platelet Count 194 K/mm3 (150-450); RBC Distribution Width CV 14.7 % (11.6-14.6); RBC Distribution Width SD 45.4 fl (35.1-43.9); Red Blood Count 3.79 M/mm3 (4.6-6.2); White Blood Count 9.7 K/mm3 (4.4-11.0)
[2024-01-05 04:02] LABS: Anion Gap 7 (5-15); BUN 12 mg/dL (7-18); BUN/Creat Ratio 36.4 RATIO (10-20); Calcium,Total 8.2 mg/dL (8.5-10.1); Chloride 107 mmol/L (98-107); Creatinine, Serum 0.33 mg/dL (0.70-1.30); EST Glomerular Filtration Rate 313 mL/min (>60); Est Glom Filt Rate - Afr Amer 379 mL/min (>60); Glucose 94 mg/dL (74-106); Magnesium 2.1 mg/dL (1.6-2.6); Phosphorus 3.3 mg/dL (2.5-4.9); Potassium 3.9 mmol/L (3.5-5.1); Sodium Level 139 mmol/L (136-145)
[2024-01-05] MEDS: Piperacil/Tazobactam 3.375 GM in 0.9% Normal Saline (50mL MB+) 50 ML IV ×3 (04:47→21:32)
[2024-01-05] MEDS: 0.9% Saline Lock 10 ML Syringe IV (04:49)
[2024-01-05] MEDS: GABAPENTIN 250 MG/5 ML SOLUTION 500 MG GT ×3 (05:41→18:46)
[2024-01-05] MEDS: Baclofen 10 MG Tablet 20 MG GT ×3 (05:42→18:45)
--- NOTE | 2024-01-05 07:11 | PN.HOSP_ITS ---
Reason for Visit Reason for Visit: Diagnoses Fever, unspecified (01/04/24) Subjective Subjective Patient is a 43-year-old gentleman admitted with acute febrile illness initially please on the progressive care unit transferred to the intensive care unit after patient became hypotensive resuscitated with IV fluid with good response. Patient spiked fever of 101.4 during the night antibiotics subsequently adjusted from Rocephin and azithromycin to Zosyn and vancomycin Objective Data Objective Data Vital Signs: Vital Signs Temp Pulse Resp BP Pulse Ox O2 Del Method O2 Flow Rate 99.0 F 96 15 136/105 H 98 Mechanical Ventilator 4 01/05/24 06:00 01/05/24 07:00 01/05/24 07:00 01/05/24 07:00 01/05/24 07:00 01/05/24 07:00 01/05/24 07:00 Oxygen Flow Rate (L/min) 4 Oxygen Delivery Method Mechanical Ventilator Weight: 82.8 kg Body Mass Index (BMI) 35.6 Intake & Output: Intake and Output for Last 24 Hours 01/03/24 01/04/24 01/05/24 23:59 23:59 23:59 Intake Total 860.15 / 980.15 2002.75 / 2002.75 Output Total 295 / 395 100 / 100 Balance 565.15 / 585.15 1903.75 / 1903.75 Lab / Micro Data 01/05/24 03:40 01/05/24 03:40 Labs: Laboratory Results - last 24 hr 01/04/24 07:45: WBC 6.1, RBC 3.99 L, Hgb 11.0 L, Hct 34.5 L, MCV 86.5, MCH 27.6, MCHC 31.9 L, RDW Std Deviation 46.5 H, RDW Coeff of Emilee 14.7 H, Plt Count 179, MPV 9.7, Immature Gran % (Auto) 0.200, Neut % (Auto) 63.9, Lymph % (Auto) 25.4, [place] % (Auto) 8.0, Eos % (Auto) 2.3, Baso % (Auto) 0.2, Absolute Neuts (auto) 3.9, Absolute Lymphs (auto) 1.56, Nucleated RBC % 0, PT 14.4, INR 1.1, APTT 55.0 H, Sodium 138, Potassium 3.7, Chloride 102, Carbon Dioxide 28.0, Anion Gap 8, BUN 12, Creatinine 0.43 L, Estim Creat Clear Calc 202.99, Est GFR (MDRD) Af Amer 280, Est GFR (MDRD) Non-Af 231, BUN/Creatinine Ratio 28.0 H, Glucose 92, Lactic Acid 2.1 H*, Calcium 8.8, Total Bilirubin 0.10 L, AST 17, ALT 23, Alkaline Phosphatase 171 H, Troponin I High Sens 3, Total Protein 7.9, Albumin 3.1 L, G lobulin 4.8 H, Albumin/Globulin Ratio 0.6 L 01/04/24 08:05: Urine Color Yellow, Urine Clarity Clear, Urine pH 7.0, Ur Specific [place] 1.005, Urine Protein Negative, Urine Glucose (UA) Normal, Urine Ketones Negative, Urine Occult Blood Negative, Urine Nitrite Negative, Urine Bilirubin Negative, Urine Urobilinogen Normal, Ur Leukocyte Esterase Negative, Urine RBC 0 SEEN, Urine WBC 0 SEEN, Ur Squamous Epith Cells 0 SEEN, Amorphous Sediment 1+, Urine Bacteria 0 SEEN, Urine Mucus 0 SEEN 01/04/24 12:08: Lactic Acid 1.2 01/04/24 13:42: Lactic Acid 0.9 01/05/24 03:40: WBC 9.7, RBC 3.79 L, Hgb 10.6 L, Hct 32.2 L, MCV 85.0, MCH 28.0, MCHC 32.9, RDW Std Deviation 45.4 H, RDW Coeff of Emilee 14.7 H, Plt Count 194, MPV 10.0, Immature Gran % (Auto) 0.200, Neut % (Auto) 78.0 H, Lymph % (Auto) 14.3 L, [place] % (Auto) 7.1, Eos % (Auto) 0.2, Baso % (Auto) 0.2, Absolute Neuts (auto) 7.6, Absolute Lymphs (auto) 1.39, Nucleated RBC % 0, Sodium 139, Potassium 3.9, Chloride 107, Carbon Dioxide 26.0, Anion Gap 7, BUN 12, Creatinine 0.33 L, Estim Creat Clear Calc 264.50, Est GFR (MDRD) Af Amer 379, Est GFR (MDRD) Non-Af 313, BUN/Creatinine Ratio 36.4 H, Glucose 94, Calcium 8.2 L, Phosphorus 3.3, Magnesium 2.1 Micro: Microbiology 01/04/24 21:27 Sputum, Induced/Lukens Gram Stain - Preliminary 01/04/24 14:33 Mucosa - Nose Respiratory Panel (PCR) - Final 01/04/24 08:05 Urine Catheter - Catheter Legionella Antigen - Final 01/04/24 08:05 Urine Catheter - Catheter Streptococcus pneumoniae Antigen (M - Final 01/04/24 08:00 Mucosa - Nasopharyngeal SARS-CoV-2, Influenza & RSV (PCR) - Final Radiography Diagnostic Testing: Radiology Impression Chest X-Ray 01/04/24 07:35 IMPRESSION: No radiographic evidence of acute cardiopulmonary disease. Electronically Signed: Edis Dhaliwal MD at 8:47 EST , Chest/Abdomen/Pelvis CT 01/04/24 09:07 IMPRESSION: 1. Scattered atelectatic changes or scarring. No parenchymal consolidation or pleural effusions. 2. No focal acute inflammatory process. 3. Additional nonacute findings unchanged since prior exam. Electronically Signed: Edis Dhaliwal MD at 10:23 EST , Rhythm Strip Rhythm Strip: Sinus Tach Rate: 109 Ectopy: None Physical Exam Narrative GENERAL: Noncommunicative HEENT: Atraumatic; normal conjunctiva EYES; Anicteric, Normal Conjunctiva NECK; trach in place RESPIRATORY: Diminished to auscultation CARDIOVASCULAR: Regular S1 S2, GI: soft, normoactive bowel sounds, : No Renal angle tenderness; EXTREMITIES: No edema, no clubbing, MUSCULOSKELETAL: Contractures NEURO: Awake; noncommunicative SKIN: No Rash Assessment & Plan Assessment/Plan (1) Fever of unknown origin (FUO): PLAN: Plan Patient is a 43-year-old gentleman with history of cerebral palsy with quadriplegia and chronic respiratory failure vent dependent admitted with fever and tachycardia 1. Acute febrile illness ? Etiology not clear at this point imaging studies obtained demonstrated scattered atelectatic changes or scarring. No parenchymal consolidation or pleural effusions. Admitted to monitored bed ordered viral respiratory panel as well as cultures. Patient started on empiric antibiotic therapy for possible bronchitis ? 01/05/2024;Patient spiked fever of 101.4 during the night antibiotics subsequently adjusted from Rocephin and azithromycin to Zosyn and vancomycin 2. Elevated lactic acid levels ? Secondary to patient acute febrile illness patient does not meet criteria for sepsis ? 01/05/2024 did institute IV fluid per sepsis protocol after patient became hypotensive. Patient also did spike fever of 101.4 3. Chronic respiratory failure ? Secondary to cerebral palsy patient is vent dependent. Plan is to continue with patient home vent settings well as inpatient 4. 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 Seizure disorder ? On phenobarb and gabapentin and Ativan 6. Chronic dysphagia ? Status post PEG tube. Currently on Jevity 1.2 nery/ml rate 65 cc during the day and 45 cc. Denies with 100 cc water flushes throughout the day 7. GERD ? On PPI continue 8. DVT prophylaxis ? Lovenox Time spent in the patient's overall evaluation,decision-making process, review of diagnostic data, adjustment of management, discussion with other providers, nursing nursing and ancillary staff involved in patient's care documentation, 52 Minutes CODE STATUS; full code Charges/Coding Visit Charges Inpatient E&M: 78590 [facility] Hosp L3
[2024-01-05] MEDS: Doxazosin 1 MG Tablet 2 MG GT (08:10)
[2024-01-05] MEDS: Phenobarbital 20 MG/5 ML UDC 60 MG GT ×2 (08:10→21:32)
[2024-01-05] MEDS: Metoclopramide 10 MG/10 ML UDC GT ×3 (08:11→21:32)
[2024-01-05] MEDS: PLECANATIDE 3 MG TABLET GT (08:11)
--- NOTE | 2024-01-05 08:55 | PCM.PN.INT ---
Assessment & Plan Assessment/Plan (1) Fever of unknown origin (FUO): PLAN: Plan RECOMMENDATIONS: 1. Continue antibiotics pending finalized culture results. 2. Continue baseline ventilatory support. 3. Continue nutritional support via tube feeding. 4. Given baseline vent requirement, the patient can be transferred to the PCU. IMPRESSIONS: 1. Low-grade fever of unclear etiology/chronic respiratory failure The patient initially presented to the hospital with increasing fussiness along with mild tachycardia and low-grade fever. However, no definitive source of infection has yet to be identified. CT chest/abdomen/pelvis was unrevealing. The patient remains hemodynamically stable this morning. Plan to continue antimicrobials until cultures have resulted negative. Otherwise, continue home ventilatory support. The patient appears quite comfortable and at his baseline from a clinical perspective. 2. Cerebral palsy with spastic quadriplegia/seizure disorder/GERD/anemia/history of candidal esophagitis Complicates care, management, recovery and prognosis. Continue home medications as indicated. This note was generated with [employer] dictation software. It may contain incorrect words, spelling, and punctuation that were not noted in checking the note before signing. Subjective Subjective The patient was seen and examined at the bedside this morning. Events from the last 24 hours have been reviewed. Overnight, the patient did spike a fever to 101.4 ?F. He did receive Tylenol and is no longer febrile this morning. Blood pressures have been stable. The patient remains on his baseline vent settings without any significant secretion output. His mother remains at the bedside. White blood cell count remains normal. Chemistry profile was unremarkable. Objective Data Objective Data The patient's most recent lab work, culture data and imaging studies have all been personally reviewed. COVID, influenza and RSV PCR's were negative. Strep and urine Legionella antigens were negative. Blood and sputum cultures are pending. Vital Signs: Vital Signs Temp Pulse Resp BP Pulse Ox O2 Del Method O2 Flow Rate 99.0 F 96 15 136/105 H 98 Mechanical Ventilator 4 01/05/24 06:00 01/05/24 07:00 01/05/24 07:00 01/05/24 07:00 01/05/24 07:00 01/05/24 08:00 01/05/24 08:00 Oxygen Flow Rate (L/min) 4 Oxygen Delivery Method Mechanical Ventilator Weight: 182 lb 8.684 oz Body Mass Index (BMI) 35.6 Intake & Output: Intake and Output for Last 24 Hours 01/03/24 01/04/24 01/05/24 23:59 23:59 23:59 Intake Total 860.15 / 980.15 / Output Total 295 / 395 100 / 100 Balance 565.15 / 585.15 1903.75 / 190.75 Lab / Micro Data Attestation: I reviewed the patient's lab results. 01/05/24 03:40 01/05/24 03:40 Labs: Laboratory Results - last 24 hr 01/04/24 07:45: APTT 55.0 H 01/04/24 12:08: Lactic Acid 1.2 01/04/24 13:42: Lactic Acid 0.9 01/05/24 03:40: WBC 9.7, RBC 3.79 L, Hgb 10.6 L, Hct 32.2 L, MCV 85.0, MCH 28.0, MCHC 32.9, RDW Std Deviation 45.4 H, RDW Coeff of Emilee 14.7 H, Plt Count 194, MPV 10.0, Immature Gran % (Auto) 0.200, Neut % (Auto) 78.0 H, Lymph % (Auto) 14.3 L, [place] % (Auto) 7.1, Eos % (Auto) 0.2, Baso % (Auto) 0.2, Absolute Neuts (auto) 7.6, Absolute Lymphs (auto) 1.39, Nucleated RBC % 0, Sodium 139, Potassium 3.9, Chloride 107, Carbon Dioxide 26.0, Anion Gap 7, BUN 12, Creatinine 0.33 L, Estim Creat Clear Calc 264.50, Est GFR (MDRD) Af Amer 379, Est GFR (MDRD) Non-Af 313, BUN/Creatinine Ratio 36.4 H, Glucose 94, Calcium 8.2 L, Phosphorus 3.3, Magnesium 2.1 Micro: Microbiology 01/05/24 02:17 Nasal Secretion MRSA (PCR) - Final 01/04/24 21:27 Sputum, Induced/Lukens Gram Stain - Preliminary 01/04/24 14:33 Mucosa - Nose Respiratory Panel (PCR) - Final 01/04/24 08:05 Urine Catheter - Catheter Legionella Antigen - Final 01/04/24 08:05 Urine Catheter - Catheter Streptococcus pneumoniae Antigen (M - Final 01/04/24 08:00 Mucosa - Nasopharyngeal SARS-CoV-2, Influenza & RSV (PCR) - Final Radiography Diagnostic Testing: Radiology Impression Chest/Abdomen/Pelvis CT 01/04/24 09:07 IMPRESSION: 1. Scattered atelectatic changes or scarring. No parenchymal consolidation or pleural effusions. 2. No focal acute inflammatory process. 3. Additional nonacute findings unchanged since prior exam. Electronically Signed: Edis Dhaliwal MD at 10:23 EST , Rhythm Strip Rhythm Strip: Sinus Tach Rate: 109 Ectopy: None Physical Exam Const alert Constitutional Narrative: Nonverbal at baseline. Resting comfortably in bed with mother at the bedside. HEENT head/scalp atraumatic and moist oral mucous membranes Eyes conjunctivae normal and no scleral icterus Neck supple Neck Narrative: Tracheostomy site intact. Chest inspection of chest normal Resp normal respiratory effort Auscultation: Negative for rales, rhonchi or wheezes Cardio S1 normal heart sound and S2 normal heart sound Rate: bradycardia GI normal to inspection, nondistended, normoactive bowel sounds Inspection: GI tube present Extremity Extremity Narrative: Baseline contractures noted. General Extremity: Negative for clubbing or edema Skin no rashes or lesions noted Neuro Neuro Narrative: Appears to be at his baseline from a neurologic perspective. Charges/Coding Visit Charges Inpatient E&M: 16523 [facility] Hosp L2
[2024-01-05] MEDS: ESOMEPRAZOLE MAGNESIUM 40 MG SUSPDR.PKT GT ×2 (10:21→21:32)
[2024-01-05] MEDS: MONTELUKAST 4 MG PO (10:21)
[2024-01-05] MEDS: Enoxaparin 40 MG/0.4 ML Syringe SC (10:21)
[2024-01-05] MEDS: Lactobacillis Acidophilus 2 CAP GT (10:21)
--- NOTE | 2024-01-05 13:21 | CHAPLAIN ---
Type of Pastoral Visit _x__ Initial Visit ___ Follow-up Visit ___ On-call Visit ___ General Patient Visit ___ Spiritual Assessment ___ Family Conference ___ Bereavement ___ Rapid Response ___ Code Blue ___ Other (describe below) Pastoral Care Referral From ___ Patient _x__ Family ___ Nurse ___ Physician ___ End User Support Specialist ___ Health Physicist ___ Other (describe below) Sacrament/Intervention _x__ Active listening ___ Anointing ___ Anabaptism ___ Bereavement ___ Communion ___ Sandra exploration ___ _x__ Life review _x__ Prayer ___ Reconciliation ___ Sacrament of Sick _x__ Supportive presence ___ Wedding ___ Other (describe below) Pastoral Comments patient is non verbal but both parents are in the room and interactive; details of health situation are expressed by parents; offer of support given to all; listening to family discuss the life long journey of their son and the perspectives on life that have been given; parents ask for a prayer and accept the presence and support given
[2024-01-05] MEDS: CETIRIZINE HCL 1 MG/ML 10 MG GT (16:26)
[2024-01-05] MEDS: Jevity 1.5 1,000 ML 60 ML GT (18:45)
[2024-01-05] MEDS: LORazepam 2 MG/ML Bottle GT (21:32)
[2024-01-06] MEDS: Baclofen 10 MG Tablet 20 MG GT ×5 (00:05→23:46)
[2024-01-06] MEDS: Acetaminophen 325 MG Tablet 650 MG GT (00:06)
[2024-01-06] MEDS: GABAPENTIN 250 MG/5 ML SOLUTION 500 MG GT ×5 (00:07→23:47)
[2024-01-06 04:00] VITALS: BP 112/73; PULSE 66; RESP 15; TEMP 36.6; O2SAT 98
[2024-01-06] MEDS: Piperacil/Tazobactam 3.375 GM in 0.9% Normal Saline (50mL MB+) 50 ML IV ×3 (05:33→20:44)
[2024-01-06 05:58] LABS: Absolute Lymphocyte Count 1.66 X10^3/uL (0.83-4.51); Absolute Neutrophil Count 2.1 X10^3/uL (2.0-7.7); Basophil# 0.02 X10^3/uL; Basophil% 0.4 % (0-1); Eosinophil# 0.24 X10^3/uL; Eosinophils% 5.1 % (0-5); Hematocrit 29.1 % (40-54); Hemoglobin 9.2 g/dL (13.0-16.5); Lymphocyte # 1.66 X10^3/ul (0.83-4.51); Lymphocyte % 35.5 % (19-41); Mean Corp Hgb Conc 31.6 g/dL (32-36); Mean Corpuscular Hgb 27.5 pg (27.0-32.0); Mean Corpuscular Volume 87.1 fL (80-94); Mean Platelet Vol. 9.9 fl (6.2-12.0); Monocyte# 0.65 X10^3/uL; Monocyte% 13.9 % (0-10); NRBC Flagged by Analyzer 0 % (0-5); Neutrophil # 2.09 X10^3/uL (2.7-7.7); Neutrophil % 44.9 % (47-70); Platelet Count 137 K/mm3 (150-450); RBC Distribution Width SD 47.9 fl (35.1-43.9); Red Blood Count 3.34 M/mm3 (4.6-6.2); White Blood Count 4.7 K/mm3 (4.4-11.0)
[2024-01-06 06:11] LABS: Anion Gap 4 (5-15); BUN 12 mg/dL (7-18); BUN/Creat Ratio 50.8 RATIO (10-20); Calcium,Total 8.1 mg/dL (8.5-10.1); Chloride 107 mmol/L (98-107); Creatinine, Serum 0.24 mg/dL (0.70-1.30); EST Glomerular Filtration Rate 461 mL/min (>60); Est Glom Filt Rate - Afr Amer 558 mL/min (>60); Estimated Creatinine Clearance 361.63 ml/min; Glucose 97 mg/dL (74-106); Potassium 3.4 mmol/L (3.5-5.1); Sodium Level 140 mmol/L (136-145)
--- NOTE | 2024-01-06 07:45 | PCM.PN.HOSP ---
Reason for Visit Reason for Visit: Diagnoses Fever, unspecified (01/04/24) Subjective Subjective Tmax over the past 24 hours 99.3. Patient respiratory cultures positive for gram-negative lyn final identification and sensitivities pending. Objective Data Objective Data Vital Signs: Vital Signs Temp Pulse Resp BP Pulse Ox O2 Del Method O2 Flow Rate 97.8 F 66 15 112/73 98 Mechanical Ventilator 4 01/06/24 04:00 01/06/24 04:00 01/06/24 04:00 01/06/24 04:00 01/06/24 04:00 01/06/24 04:00 01/06/24 04:00 Oxygen Flow Rate (L/min) 4 Oxygen Delivery Method Mechanical Ventilator Weight: 82.8 kg Body Mass Index (BMI) 35.6 Intake & Output: Intake and Output for Last 24 Hours 01/04/24 01/05/24 01/06/24 23:59 23:59 23:59 Intake Total 860.15 / 980.15 2928.00 / 3108.00 410 / 410 Output Total 295 / 395 550 / 550 75 / 75 Balance 565.15 / 585.15 2378.00 / 2558.00 335 / 335 Lab / Micro Data 01/06/24 05:45 01/06/24 05:45 Labs: Laboratory Results - last 24 hr 01/06/24 05:45: WBC 4.7, RBC 3.34 L, Hgb 9.2 L, Hct 29.1 L, MCV 87.1, MCH 27.5, MCHC 31.6 L, RDW Std Deviation 47.9 H, RDW Coeff of Emilee 15.0 H, Plt Count 137 L, MPV 9.9, Immature Gran % (Auto) 0.200, Neut % (Auto) 44.9 L, Lymph % (Auto) 35.5, [place] % (Auto) 13.9 H, Eos % (Auto) 5.1 H, Baso % (Auto) 0.4, Absolute Neuts (auto) 2.1, Absolute Lymphs (auto) 1.66, Nucleated RBC % 0, Sodium 140, Potassium 3.4 L, Chloride 107, Carbon Dioxide 29.0, Anion Gap 4 L, BUN 12, Creatinine 0.24 L, Estim Creat Clear Calc 361.63, Est GFR (MDRD) Af Amer 558, Est GFR (MDRD) Non-Af 461, BUN/Creatinine Ratio 50.8 H, Glucose 97, Calcium 8.1 L Micro: Microbiology 01/04/24 21:27 Sputum, Induced/Lukens Gram Stain - Final 01/04/24 21:27 Sputum, Induced/Lukens Respiratory Culture - Preliminary Gram negative lyn 01/05/24 02:17 Nasal Secretion MRSA (PCR) - Final 01/04/24 14:33 Mucosa - Nose Respiratory Panel (PCR) - Final 01/04/24 08:05 Urine Catheter - Catheter Legionella Antigen - Final 01/04/24 08:05 Urine Catheter - Catheter Streptococcus pneumoniae Antigen (M - Final 01/04/24 08:00 Mucosa - Nasopharyngeal SARS-CoV-2, Influenza & RSV (PCR) - Final Rhythm Strip Rhythm Strip: Sinus Tach Rate: 109 Ectopy: None Physical Exam Narrative GENERAL: Noncommunicative HEENT: Atraumatic; normal conjunctiva EYES; Anicteric, Normal Conjunctiva NECK; trach in place RESPIRATORY: Diminished to auscultation CARDIOVASCULAR: Regular S1 S2, GI: soft, normoactive bowel sounds, : No Renal angle tenderness; EXTREMITIES: No edema, no clubbing, MUSCULOSKELETAL: Contractures NEURO: Awake; noncommunicative SKIN: No Rash Assessment & Plan Assessment/Plan (1) Fever of unknown origin (FUO): PLAN: Plan Patient is a 43-year-old gentleman with history of cerebral palsy with quadriplegia and chronic respiratory failure vent dependent admitted with fever and tachycardia 1. Acute febrile illness ? Etiology not clear at this point imaging studies obtained demonstrated scattered atelectatic changes or scarring. No parenchymal consolidation or pleural effusions. Admitted to monitored bed ordered viral respiratory panel as well as cultures. Patient started on empiric antibiotic therapy for possible bronchitis ? 01/05/2024;Patient spiked fever of 101.4 during the night antibiotics subsequently adjusted from Rocephin and azithromycin to Zosyn and vancomycin -01/06/2024;Tmax over the past 24 hours 99.3. Patient respiratory cultures positive for gram-negative lyn final identification and sensitivities pending. 2. Elevated lactic acid levels ? Secondary to patient acute febrile illness patient does not meet criteria for sepsis ? 01/05/2024 did institute IV fluid per sepsis protocol after patient became hypotensive. Patient also did spike fever of 101.4 3. Chronic respiratory failure ? Secondary to cerebral palsy patient is vent dependent. Plan is to continue with patient home vent settings well as inpatient 4. 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 Seizure disorder ? On phenobarb and gabapentin and Ativan 6. Chronic dysphagia ? Status post PEG tube. Currently on Jevity 1.2 nery/ml rate 65 cc during the day and 45 cc. Denies with 100 cc water flushes throughout the day 7. GERD ? On PPI continue 8. DVT prophylaxis ? Lovenox 9. Anemia ? Secondary to chronic disorder monitoring H&H and transfuse if patient becomes symptomatic or hemoglobin falls below 7 10. Hypokalemia ? Corrected per protocol repeat labs ordered for eval following correction Charges/Coding Visit Charges Inpatient E&M: 99820 [facility] L3
--- NOTE | 2024-01-06 08:22 | CASEMGMT ---
Patient has Legal Guardian and paperwork is on file at [facility]. Pt Legal Guardians are parents Solomon and Yueelin Diaz. ERIC Zarco
--- NOTE | 2024-01-06 08:38 | PN.CC_ITS ---
Assessment & Plan Assessment/Plan (1) Fever of unknown origin (FUO): PLAN: Plan RECOMMENDATIONS: 1. Continue antibiotics pending finalized culture results. 2. Continue baseline ventilatory support. 3. Continue nutritional support via tube feeding. 4. Continue follow-up in the pulmonary medicine clinic on outpatient basis. IMPRESSIONS: 1. Low-grade fever of unclear etiology/chronic respiratory failure The patient initially presented to the hospital with increasing fussiness along with mild tachycardia and low-grade fever. However, no definitive source of infection has yet to be identified. CT chest/abdomen/pelvis was unrevealing. However, the patient is currently demonstrating growth of a gram-negative lyn from a sputum culture, which I suspect is likely Pseudomonas and likely related to colonization. The patient remains hemodynamically stable this morning. Continue home ventilatory support. The patient appears quite comfortable and at his baseline from a clinical perspective. 2. Cerebral palsy with spastic quadriplegia/seizure disorder/GERD/anemia/history of candidal esophagitis Complicates care, management, recovery and prognosis. Continue home medications as indicated. This note was generated with General [employer] dictation software. It may contain incorrect words, spelling, and punctuation that were not noted in checking the note before signing. Subjective Subjective The patient was seen and examined at the bedside this morning. Events from the last 24 hours have been reviewed. The patient is currently afebrile, hemodynamically stable and maintaining appropriate oxygen saturations on his baseline ventilatory support. The patient's mother and father present at the bedside. White blood cell count remains normal. Hemoglobin is stable. Potassium is low at 3.4. No overnight issues were identified by the nursing staff. Objective Data Objective Data The patient's most recent lab work, culture data and imaging studies have all been personally reviewed. COVID, influenza and RSV PCR's were negative. Strep and urine Legionella antigens were negative. Blood cultures have not demonstrated any growth to date. Preliminary sputum culture is demonstrating growth of a gram-negative lyn. Vital Signs: Vital Signs Temp Pulse Resp BP Pulse Ox O2 Del Method O2 Flow Rate 97.8 F 66 15 112/73 98 Mechanical Ventilator 4 01/06/24 04:00 01/06/24 04:00 01/06/24 04:00 01/06/24 04:00 01/06/24 04:00 01/06/24 04:00 01/06/24 04:00 Oxygen Flow Rate (L/min) 4 Oxygen Delivery Method Mechanical Ventilator Weight: 182 lb 8.684 oz Body Mass Index (BMI) 35.6 Intake & Output: Intake and Output for Last 24 Hours 01/04/24 01/05/24 01/06/24 23:59 23:59 23:59 Intake Total 860.15 / 980.15 2928.00 / 3108.00 410 / 410 Output Total 295 / 395 550 / 550 75 / 75 Balance 565.15 / 585.15 2378.00 / 2558.00 335 / 335 Lab / Micro Data Attestation: I reviewed the patient's lab results. 01/06/24 05:45 01/06/24 05:45 Labs: Laboratory Results - last 24 hr 01/06/24 05:45: WBC 4.7, RBC 3.34 L, Hgb 9.2 L, Hct 29.1 L, MCV 87.1, MCH 27.5, MCHC 31.6 L, RDW Std Deviation 47.9 H, RDW Coeff of Emilee 15.0 H, Plt Count 137 L, MPV 9.9, Immature Gran % (Auto) 0.200, Neut % (Auto) 44.9 L, Lymph % (Auto) 35.5, [place] % (Auto) 13.9 H, Eos % (Auto) 5.1 H, Baso % (Auto) 0.4, Absolute Neuts (auto) 2.1, Absolute Lymphs (auto) 1.66, Nucleated RBC % 0, Sodium 140, P otassium 3.4 L, Chloride 107, Carbon Dioxide 29.0, Anion Gap 4 L, BUN 12, C reatinine 0.24 L, Estim Creat Clear Calc 361.63, Est GFR (MDRD) Af Amer 558, Est GFR (MDRD) Non-Af 461, BUN/Creatinine Ratio 50.8 H, Glucose 97, Calcium 8.1 L Micro: Microbiology 01/04/24 21:27 Sputum, Induced/Lukens Gram Stain - Final 01/04/24 21:27 Sputum, Induced/Lukens Respiratory Culture - Preliminary Gram negative lyn 01/05/24 02:17 Nasal Secretion MRSA (PCR) - Final 01/04/24 14:33 Mucosa - Nose Respiratory Panel (PCR) - Final 01/04/24 08:05 Urine Catheter - Catheter Legionella Antigen - Final 01/04/24 08:05 Urine Catheter - Catheter Streptococcus pneumoniae Antigen (M - Final 01/04/24 08:00 Mucosa - Nasopharyngeal SARS-CoV-2, Influenza & RSV (PCR) - Final Radiography Diagnostic Testing: Radiology Impression Chest/Abdomen/Pelvis CT 01/04/24 09:07 IMPRESSION: 1. Scattered atelectatic changes or scarring. No parenchymal consolidation or pleural effusions. 2. No focal acute inflammatory process. 3. Additional nonacute findings unchanged since prior exam. Electronically Signed: Edis Dhaliwal MD at 10:23 EST , Rhythm Strip Rhythm Strip: Sinus Tach Rate: 109 Ectopy: None Physical Exam Const alert Constitutional Narrative: Nonverbal at baseline. Resting comfortably in bed with mother and father at the bedside. HEENT head/scalp atraumatic and moist oral mucous membranes Eyes conjunctivae normal and no scleral icterus Neck supple Neck Narrative: Tracheostomy site intact. Chest inspection of chest normal Resp normal respiratory effort Auscultation: Negative for rales, rhonchi or wheezes Cardio S1 normal heart sound and S2 normal heart sound Rate: bradycardia GI normal to inspection, nondistended, normoactive bowel sounds Inspection: GI tube present Extremity Extremity Narrative: Baseline contractures noted. General Extremity: Negative for clubbing or edema Skin no rashes or lesions noted Neuro Neuro Narrative: Appears to be at his baseline from a neurologic perspective. Charges/Coding Visit Charges Inpatient E&M: 53685 Subs Hosp L2
[2024-01-06] MEDS: Doxazosin 1 MG Tablet 2 MG GT (08:57)
[2024-01-06] MEDS: PLECANATIDE 3 MG TABLET GT (08:58)
[2024-01-06] MEDS: MONTELUKAST 4 MG PO (08:58)
[2024-01-06] MEDS: Metoclopramide 10 MG/10 ML UDC GT ×3 (09:00→20:44)
[2024-01-06] MEDS: Enoxaparin 40 MG/0.4 ML Syringe SC (09:00)
[2024-01-06] MEDS: Lactobacillis Acidophilus 2 CAP GT (09:00)
[2024-01-06] MEDS: Phenobarbital 20 MG/5 ML UDC 60 MG GT ×2 (09:07→20:44)
[2024-01-06] MEDS: ESOMEPRAZOLE MAGNESIUM 40 MG SUSPDR.PKT GT ×2 (09:50→20:49)
[2024-01-06 10:00] VITALS: BP 145/94; PULSE 89; RESP 16; TEMP 36.2; O2SAT 97
[2024-01-06 12:51] VITALS: O2SAT 95
[2024-01-06 14:45] VITALS: BP 100/69; PULSE 62; RESP 19; TEMP 36.2; O2SAT 99
--- NOTE | 2024-01-06 15:39 | CON.PCM.ID_ITS ---
Assessment & Plan Assessment/Plan (1) Tracheostomy dependent: (2) Pneumonia: PLAN: Sputum cx with GNR, cont zosyn. Will follow, thank you (3) Cerebral palsy: QUALIFIERS: Cerebral palsy type: spastic quadriplegic Qualified Code(s): G80.0 - Spastic quadriplegic cerebral palsy HPI Consult Data Date of Consult: 01/06/24 HPI Narrative Reason for Consultation: pneumonia HPI Narrative: KRISS MICHAEL, is a 43 M with cerebral palsy, trach dependent, admitted with acute onset fever, hypoxia, increased secretions. Admitted to icu, now on zosyn. History obtained from mother at bedside. ROS unobtainable due to mental status. [facility] Medical History Aspiration pneumonia Anxiety GERD (gastroesophageal reflux disease) Non-smoker On home oxygen therapy Pulmonary embolism Seizures Cerebral palsy Chronic respiratory failure with hypoxia Pseudomonas pneumonia Colostomy prolapse Cerebral palsy Acute dyspnea Anemia in chronic illness Upper GI bleeding (04/2020) Thrombocytopenia Pulmonary embolism on left (06/14/19) Iron deficiency anemia Obesity Tracheostomy in place Debility Chronic respiratory failure Edema Nonrheumatic mitral valve prolapse Redundant colon History of seizure disorder Home Medications ?Medication ?Instructions ?Recorded ?Last Taken ?Type phenobarbital 20 mg/5 mL (4 mg/mL) 60 mg G-tube 0830,2100 SEIZURES 02/19/17 01/03/24 History oral elixir metoclopramide HCl 5 mg/5 mL oral 10 mg feeding tube 0830,1600,2100 09/16/18 01/03/24 History solution STOMACH Cough Assist 1 dose .Route .MEDSUPPLY assist in 12/25/18 03/23/23 History clearing secretions oxygen concentrator 1 dose .Route .MEDSUPPLY second 12/25/18 Unknown History unit, 4 LPM cont all modalities gabapentin 250 mg/5 mL oral 500 mg G-tube 0000,0600,1200,1800 09/26/19 01/04/24 History solution SEIZURES albuterol sulfate 2.5 mg/3 mL 2.5 mg inhalation Q4H PRN Sob &/Or 11/27/20 Unknown History (0.083 %) solution for nebulization Wheezing lactose-reduced food with fiber 1,000 ml G-tube DAILY NUTRITION 11/27/20 03/23/23 History 0.06 gram-1.2 kcal/mL oral liquid plecanatide 3 mg tablet 3 mg G-tube 0830 BOWELS 11/27/20 01/02/24 History doxazosin 2 mg tablet 2 mg PO 0830 BLOOD PRESSURE 11/30/21 01/03/24 History cholecalciferol (vitamin D3) 10 15 mcg feeding tube 0830 SUPPLEMENT 03/24/22 01/03/24 History mcg/mL (400 unit/mL) oral drops acetaminophen 650 mg/20.3 mL oral 650 mg feeding tube 10/24/22 01/04/24 History suspension 0000,0600,1200,1800 PRN PAIN aluminum-mag hydroxide-simethicone 5 ml PO 0000,0600,1200,1800 PRN 10/24/22 Unknown History 200 mg-200 mg-20 mg/5 mL oral susp ANTACID baclofen 20 mg tablet 20 mg feeding tube Q6H MUSCLE 12/10/22 01/04/24 History SPASMS ondansetron 4 mg disintegrating 4 mg PO Q8H PRN NAUSEA/VOMITING 12/13/22 Unknown Rx tablet #30 tabs esomeprazole magnesium 40 mg 40 mg G-tube BID ACID REFLUX 03/23/23 01/03/24 History granules delayed release for susp (Nexium Packet) ipratropium 0.5 mg-albuterol 3 mg 3 ml inhalation Q4H PRN SOB &/OR 03/23/23 Unknown History (2.5 mg base)/3 mL nebulization WHEEZING soln Lactobacillus acidophilus 500 See Rx Instructions .Route DAILY 09/20/23 Unknown Rx million cell capsule #60 caps cetirizine 1 mg/mL oral solution 10 mg (10 mL) feeding tube 1600 09/30/23 01/03/24 Rx ALLERGIES #480 mL guaifenesin 200 mg/5 mL oral liquid 200 mg (5 mL) feeding tube 0830 09/30/23 01/03/24 Rx PRN COUGH/CONGESTION #118 mL montelukast 4 mg oral granules in 4 mg PO DAILY ASTHMA #90 ea 09/30/23 01/03/24 Rx packet (Singulair) lorazepam 2 mg/mL oral concentrate 2 mg feeding tube DAILY PRN 01/04/24 01/03/24 History (Lorazepam Intensol) agitation Allergy/AdvReac Type Severity Reaction Status Date / Time chlorhexidine Allergy Rash Verified 09/30/23 11:03 cisapride monohydrate (From Allergy Rash Verified 09/30/23 11:03 Propulsid) house dust Allergy NEEDS Verified 09/30/23 11:03 FOLLOW-UP metronidazole (From Flagyl) Allergy Rash Verified 09/30/23 11:03 codeine AdvReac hallucinati Verified 09/30/23 11:03 ons morphine AdvReac Hallucinati Verified 09/30/23 11:03 ons Family History Mother Hepatitis C Hypertension HIV disease Father H/O heart artery stent CAD (coronary artery disease) Atrial fibrillation Hypertension Esophageal cancer Surgical History History of eye surgery Heel cord lengthening History of soft tissue release History of open reduction and internal fixation (ORIF) procedure History of gastrostomy tube placement Status post insertion of intrathecal baclofen pump History of colostomy Colostomy in place Social History household members: family housing: house current occupational status: disabled Smoking Status: Never smoker alcohol intake: never substance use type: does not use caffeine: No Physical Exam Const no apparent distress General Appearance: lethargic HEENT head/scalp atraumatic Eyes PERRL Resp Effort and Inspection: mechanically ventilated Auscultation: rhonchi Cardio Rate: tachycardic GI soft to palpation, non-tender and non-distended Extremity General Extremity: Negative for edema Skin no rashes or lesions noted Neuro Neuro Narrative: not following commands Lab / Micro Data Attestation: I reviewed the patient's lab results. 01/06/24 05:45 01/06/24 05:45 Labs: Laboratory Results - last 24 hr 01/06/24 05:45: WBC 4.7, RBC 3.34 L, Hgb 9.2 L, Hct 29.1 L, MCV 87.1, MCH 27.5, MCHC 31.6 L, RDW Std Deviation 47.9 H, RDW Coeff of Emilee 15.0 H, Plt Count 137 L, MPV 9.9, Immature Gran % (Auto) 0.200, Neut % (Auto) 44.9 L, Lymph % (Auto) 35.5, [place] % (Auto) 13.9 H, Eos % (Auto) 5.1 H, Baso % (Auto) 0.4, Absolute Neuts (auto) 2.1, Absolute Lymphs (auto) 1.66, Nucleated RBC % 0, Sodium 140, P otassium 3.4 L, Chloride 107, Carbon Dioxide 29.0, Anion Gap 4 L, BUN 12, C reatinine 0.24 L, Estim Creat Clear Calc 361.63, Est GFR (MDRD) Af Amer 558, Est GFR (MDRD) Non-Af 461, BUN/Creatinine Ratio 50.8 H, Glucose 97, Calcium 8.1 L Micro: Microbiology 01/04/24 12:08 Blood Culture (Wb) - Left Hand Blood Culture - Preliminary No growth in 48 hours. 01/04/24 07:45 Blood Culture (Wb) - Port Blood Culture - Preliminary No growth in 48 hours. 01/04/24 08:05 Urine Catheter - Catheter Urine Culture - Final Culture exhibits no growth. 01/04/24 21:27 Sputum, Induced/Lukens Gram Stain - Final 01/04/24 21:27 Sputum, Induced/Lukens Respiratory Culture - Preliminary GNR Poss Pseudomonas sp Gram negative lyn Rhythm Strip Rhythm Strip: Sinus Tach Rate: 109 Ectopy: None
[2024-01-06] MEDS: Jevity 1.5 1,000 ML 55 ML GT (17:34)
[2024-01-06] MEDS: CETIRIZINE HCL 1 MG/ML 10 MG GT (17:37)
[2024-01-06 19:00] VITALS: PULSE 72
[2024-01-06 20:45] VITALS: BP 105/70; PULSE 83; RESP 16; TEMP 36.9; O2SAT 97
[2024-01-07] VITALS (30 sets, daily range): BP systolic 82–130; BP diastolic 43–79; PULSE 48–147; RESP 14–37; TEMP 36.9–37.2; O2SAT 93–100
[2024-01-07] MEDS: LORazepam 2 MG/ML Bottle GT (05:05)
[2024-01-07] MEDS: Acetaminophen 325 MG Tablet 650 MG GT (05:26)
[2024-01-07] MEDS: Baclofen 10 MG Tablet 20 MG GT ×3 (06:18→17:53)
[2024-01-07] MEDS: Piperacil/Tazobactam 3.375 GM in 0.9% Normal Saline (50mL MB+) 50 ML IV ×3 (06:19→21:03)
[2024-01-07] MEDS: GABAPENTIN 250 MG/5 ML SOLUTION 500 MG GT ×3 (06:19→17:50)
[2024-01-07] MEDS: 0.9% Saline Lock 10 ML Syringe IV (06:45)
[2024-01-07] MEDS: Ketorolac 15 MG/ML Vial IV (06:46)
--- NOTE | 2024-01-07 07:06 | PN.HOSP_ITS ---
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/04/24) Subjective Subjective Patient sputum cultures so far positive for Pseudomonas and a second gram- negative lyn organism identification and sensitivity still pending. Patient seen appears flushed and appears to be struggling breathing. Ordered VBG as well as check surgery patient has been suctioned by nursing staff. Plan is to place patient on Precedex Objective Data Objective Data Vital Signs: Vital Signs Temp Pulse Resp BP Pulse Ox O2 Del Method O2 Flow Rate 98.4 F 83 16 105/70 97 Mechanical Ventilator 4 01/06/24 20:45 01/06/24 20:45 01/06/24 20:45 01/06/24 20:45 01/06/24 20:45 01/07/24 00:00 01/07/24 00:00 Oxygen Flow Rate (L/min) 4 Oxygen Delivery Method Mechanical Ventilator Weight: 82.8 kg Body Mass Index (BMI) 35.6 Intake & Output: Intake and Output for Last 24 Hours 01/05/24 01/06/24 01/07/24 23:59 23:59 23:59 Intake Total 2928.00 / 3108.00 1549.67 / 1789.67 623.75 / 623.75 Output Total 550 / 550 525 / 775 250 / 250 Balance 2378.00 / 2558.00 1024.67 / 1014.67 373.75 / 373.75 Lab / Micro Data 01/07/24 07:14 01/06/24 05:45 Micro: Microbiology 01/04/24 12:08 Blood Culture (Wb) - Left Hand Blood Culture - Preliminary No growth in 48 hours. 01/04/24 07:45 Blood Culture (Wb) - Port Blood Culture - Preliminary No growth in 48 hours. 01/04/24 08:05 Urine Catheter - Catheter Urine Culture - Final Culture exhibits no growth. 01/04/24 21:27 Sputum, Induced/Lukens Gram Stain - Final 01/04/24 21:27 Sputum, Induced/Lukens Respiratory Culture - Preliminary GNR Poss Pseudomonas sp Gram negative lyn 01/05/24 02:17 Nasal Secretion MRSA (PCR) - Final 01/04/24 14:33 Mucosa - Nose Respiratory Panel (PCR) - Final 01/04/24 08:05 Urine Catheter - Catheter Legionella Antigen - Final 01/04/24 08:05 Urine Catheter - Catheter Streptococcus pneumoniae Antigen (M - Final 01/04/24 08:00 Mucosa - Nasopharyngeal SARS-CoV-2, Influenza & RSV (PCR) - Final Rhythm Strip Rhythm Strip: Sinus Tach Rate: 109 Ectopy: None Physical Exam Narrative GENERAL: Patient appears uncomfortable HEENT: Atraumatic; normal conjunctiva EYES; Anicteric, Normal Conjunctiva NECK; trach in place RESPIRATORY: Diminished to auscultation CARDIOVASCULAR: Regular S1 S2, GI: soft, normoactive bowel sounds, : No Renal angle tenderness; EXTREMITIES: No edema, no clubbing, MUSCULOSKELETAL: Contractures NEURO: Awake; noncommunicative SKIN: Flushed Assessment & Plan Assessment/Plan (1) Fever of unknown origin (FUO): PLAN: Plan Patient is a 43-year-old gentleman with history of cerebral palsy with quadriplegia and chronic respiratory failure vent dependent admitted with fever and tachycardia 1. Acute febrile illness ? Etiology not clear at this point imaging studies obtained demonstrated scattered atelectatic changes or scarring. No parenchymal consolidation or pleural effusions. Admitted to monitored bed ordered viral respiratory panel as well as cultures. Patient started on empiric antibiotic therapy for possible bronchitis ? 01/05/2024;Patient spiked fever of 101.4 during the night antibiotics subsequently adjusted from Rocephin and azithromycin to Zosyn and vancomycin -01/06/2024;Tmax over the past 24 hours 99.3. Patient respiratory cultures positive for gram-negative lyn final identification and sensitivities pending. ? 4Patient sputum cultures so far positive for Pseudomonas and a second gram-negative lyn organism identification and sensitivity still pending. Patient seen appears flushed and appears to be struggling breathing. Ordered VBG as well as check surgery patient has been suctioned by nursing staff. Plan is to place patient on Precedex 2. Elevated lactic acid levels ? Secondary to patient acute febrile illness patient does not meet criteria for sepsis ? 01/05/2024 did institute IV fluid per sepsis protocol after patient became hypotensive. Patient also did spike fever of 101.4 3. Chronic respiratory failure ? Secondary to cerebral palsy patient is vent dependent. Plan is to continue with patient home vent settings well as inpatient 4. 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 Seizure disorder ? On phenobarb and gabapentin and Ativan 6. Chronic dysphagia ? Status post PEG tube. Currently on Jevity 1.2 nery/ml rate 65 cc during the day and 45 cc. Denies with 100 cc water flushes throughout the day 7. GERD ? On PPI continue 8. DVT prophylaxis ? Lovenox 9. Anemia ? Secondary to chronic disorder monitoring H&H and transfuse if patient becomes symptomatic or hemoglobin falls below 7 10. Hypokalemia ? Corrected per protocol repeat labs ordered for eval following correction Time spent in the patient's overall evaluation,decision-making process, review of diagnostic data, adjustment of management, discussion with other providers, nursing nursing and ancillary staff involved in patient's care documentation, 52 minutes Charges/Coding Visit Charges Inpatient E&M: 80212 [facility] Hosp L3
--- NOTE | 2024-01-07 07:24 | RAD_ITS ---
STUDY: X-RAY CHEST REASON FOR EXAM: Male, 43 years old. Dyspnea TECHNIQUE: Single AP portable view of the chest. COMPARISON: Comparison is made with prior study of January 04, 2024. FINDINGS: A tracheostomy tube is in situ. The tip is at 5.3 cm proximal to clark. A right-sided portacatheter seen with the tip in the right atrium. Limited inspiratory effort. Findings suggestive of mild vascular congestion and CHF. There is no demonstrated pleural abnormality. Cardiomegaly. Normal mediastinum and rachelle. Normal visualized pulmonary arteries. Normal visualized aortic arch and descending thoracic aorta. Normal visualized thoracic spine. Normal visualized ribs, clavicles, and shoulders. There is no demonstrated abnormality of the visualized soft tissue structures of the upper abdomen. RAD/Chest 1 View (Portable) IMPRESSION: Limited inspiration. Findings suggestive of vascular congestion mild CHF. Cardiomegaly. Electronically Signed: Matti Greer MD at 7:53 EST ,
[2024-01-07 07:42] LABS: Absolute Lymphocyte Count 3.33 X10^3/uL (0.83-4.51); Absolute Neutrophil Count 12.1 X10^3/uL (2.0-7.7); Basophil# 0.04 X10^3/uL; Basophil% 0.2 % (0-1); Eosinophil# 0.22 X10^3/uL; Eosinophils% 1.3 % (0-5); Hematocrit 37.1 % (40-54); Hemoglobin 11.9 g/dL (13.0-16.5); Lymphocyte # 3.33 X10^3/ul (0.83-4.51); Lymphocyte % 19.6 % (19-41); Mean Corp Hgb Conc 32.1 g/dL (32-36); Mean Corpuscular Hgb 27.8 pg (27.0-32.0); Mean Corpuscular Volume 86.7 fL (80-94); Mean Platelet Vol. 10.1 fl (6.2-12.0); Monocyte# 1.29 X10^3/uL; Monocyte% 7.6 % (0-10); NRBC Flagged by Analyzer 0 % (0-5); Neutrophil # 12.06 X10^3/uL (2.7-7.7); Neutrophil % 70.9 % (47-70); Platelet Count 281 K/mm3 (150-450); RBC Distribution Width SD 47.1 fl (35.1-43.9); Red Blood Count 4.28 M/mm3 (4.6-6.2)
[2024-01-07] MEDS: dexMEDEtomidine 400 MCG in 0.9% Normal Saline (100mL Bag) 96 ML 10.4 MCG CONT INF (08:11)
[2024-01-07] MEDS: Metoclopramide 10 MG/10 ML UDC GT ×3 (08:12→21:03)
[2024-01-07] MEDS: Doxazosin 1 MG Tablet 2 MG GT (08:12)
[2024-01-07] MEDS: PLECANATIDE 3 MG TABLET GT (08:13)
[2024-01-07 08:15] LABS: Anion Gap 11 (5-15); BUN 13 mg/dL (7-18); Calcium,Total 9.4 mg/dL (8.5-10.1); Chloride 106 mmol/L (98-107); Creatinine, Serum 0.62 mg/dL (0.70-1.30); EST Glomerular Filtration Rate 152 mL/min (>60); Est Glom Filt Rate - Afr Amer 183 mL/min (>60); Estimated Creatinine Clearance 139.98 ml/min; Glucose 132 mg/dL (74-106); Potassium 4.5 mmol/L (3.5-5.1); Sodium Level 139 mmol/L (136-145)
--- NOTE | 2024-01-07 08:49 | CT_ITS ---
STUDY: CTA CHEST REASON FOR EXAM: Male, 43 years old. Hypoxemia, Tachypnea RADIATION DOSAGE (If Supplied By Facility): CTDIvol = ( 23.71 ) mGy, DLP = ( 2370.01 ) mGycm TECHNIQUE: The examination was performed with the intravenous administration of 100mL Isovue 370. Post-processing of the angiographic images was performed, with multiplanar reformation and 3D reconstruction. Individualized dose optimization techniques were used for this CT. COMPARISON: Comparison is made with prior study April 13, 2023. FINDINGS: A tracheostomy tube is seen. Normal enhancement of the main pulmonary artery and right and left pulmonary arteries. Normal enhancement of the bilateral peripheral pulmonary arteries. There is no demonstrated pulmonary embolism. Normal thoracic aorta and visualized great vessels. There is no demonstrated aortic dissection. Normal heart and pericardium. Normal mediastinum. Normal hilar regions. Normal visualized trachea and bronchi. Limited inspiratory effort. Patchy infiltrates in the upper lobes. Patchy infiltrates in both lower lobes worse at the right lung base. Normal pleura. Normal chest wall structures. There are degenerative changes of thoracic spine. The patient is status post cholecystectomy. CT/CTA Chest W/WO Contrast IMPRESSION: Limited inspiratory effort. No evidence of pulmonary embolism. Patchy infiltrates in both lungs as described worse on the right side. Electronically Signed: Matti Greer MD at 11:44 EST ,
--- NOTE | 2024-01-07 08:49 | CT_ITS ---
STUDY: CT ABDOMEN AND PELVIS WITH CONTRAST REASON FOR EXAM: Male, 43 years old. Sepsis RADIATION DOSAGE (If Supplied By Facility): CTDIvol = ( 23.71 ) mGy, DLP = ( 2370.01 ) mGycm TECHNIQUE: Transaxial images were obtained from the dome of the diaphragm to the symphysis pubis with oral contrast. Oral and amp; IV Gastrografin and amp; 100mL Isovue-370 was administered. Sagittal and coronal images were reconstructed. Individualized dose optimization techniques were used for this CT. COMPARISON: Comparison is made with prior study December 10, 2022. FINDINGS: Patchy bibasilar infiltrates. The visualized portions of the heart are within normal limits. Normal liver. Visualization of the gallbladder most likely status post cholecystectomy. Normal spleen. Normal pancreas. Normal bilateral adrenal glands. Normal right kidney. Normal left kidney. A PEG tube is seen within the stomach. Normal small intestine. The patient is status post left hemicolectomy and left lower quadrant ostomy. There is evidence of a rectal remnant. Marked degree of fecal material is seen in the rectum suggestive of fecal impaction. This is essentially unchanged. The appendix is visualized and appears normal. Normal abdominal aorta. Normal inferior vena cava. Normal retroperitoneum. Normal urinary bladder. Stable right inguinal hernia containing a portion of the bladder. Normal osseous structures. CT/Abdomen/Pelvis WITH Contrast IMPRESSION: Fecal impaction in the rectal remnant. Electronically Signed: Matti Greer MD at 11:47 EST ,
[2024-01-07] MEDS: Phenobarbital 20 MG/5 ML UDC 60 MG GT ×2 (09:32→21:03)
--- NOTE | 2024-01-07 09:35 | PCM.PN.INT ---
Assessment & Plan Assessment/Plan (1) Fever of unknown origin (FUO): PLAN: Plan RECOMMENDATIONS: 1. Continue antibiotics per ID recommendations. 2. Start vancomycin empirically while awaiting MRSA swab. 3. Obtain follow-up ABG and check procalcitonin. 4. Continue ventilatory support per baseline regimen. 5. Obtain follow-up CT imaging of the chest, abdomen and pelvis. 6. Continue nutritional support via tube feeding. IMPRESSIONS: 1. Acute on chronic hypoxemic respiratory failure The patient initially presented to the hospital with increasing fussiness along with mild tachycardia and low-grade fever. CT chest/abdomen/pelvis was unrevealing. However, the patient is currently demonstrating growth of a gram-negative rods from a sputum culture, for which he remains on antimicrobials. Over the last 24 hours, despite appropriate antimicrobial coverage, the patient's white blood cell count increased and the patient developed increased work of breathing, tachycardia and tachypnea. He was subsequently placed on Precedex. The patient will be continued on invasive mechanical ventilatory support via his tracheostomy. Infectious diseases is currently following. Will plan to add vancomycin empirically to his antibiotic regimen and obtain MRSA screen. In addition, will recheck COVID, influenza and RSV PCR's. Lastly, repeat CT imaging of the chest abdomen and pelvis will be obtained. 2. Cerebral palsy with spastic quadriplegia/seizure disorder/GERD/anemia/history of candidal esophagitis Complicates care, management, recovery and prognosis. Continue home medications as indicated. TIME: 37 minutes of critical care time, independent of procedures, was spent addressing the patient's acute on chronic hypoxemic respiratory failure, review of all data and collaboration with the care team. Subjective Subjective The patient was seen and examined at the bedside this morning. Events from the last 24 hours have been reviewed. Early this morning, the patient acutely decompensated with increased work of breathing, tachycardia and tachypnea, of unclear etiology. Despite this, the patient remained on a stable FiO2 on his home ventilator. White count is increased to 17,000 this morning. Chest x-ray from this morning was nondiagnostic. Creatinine remains within normal limits. The patient was initiated on Precedex therapy with subsequent improvement in his work of breathing and tachycardia. The patient remains on antimicrobials and was seen in consultation by infectious diseases yesterday. Objective Data Objective Data The patient's most recent lab work, culture data and imaging studies have all been personally reviewed. COVID, influenza and RSV PCR's were negative. Strep and urine Legionella antigens were negative. Blood cultures have not demonstrated any growth to date. Preliminary sputum culture is demonstrating growth Pseudomonas, Proteus and group B streptococcus. Vital Signs: Vital Signs Temp Pulse Resp BP Pulse Ox O2 Del Method O2 Flow Rate 99.0 F 131 H 37 H 119/60 100 Mechanical Ventilator 4 01/07/24 04:30 01/07/24 08:39 01/07/24 08:39 01/07/24 04:30 01/07/24 08:39 01/07/24 07:20 01/07/24 07:20 FiO2 50 01/07/24 08:39 Oxygen Flow Rate (L/min) 4 Oxygen Delivery Method Mechanical Ventilator Weight: 182 lb 8.684 oz Body Mass Index (BMI) 35.6 Intake & Output: Intake and Output for Last 24 Hours 01/05/24 01/06/24 01/07/24 23:59 23:59 23:59 Intake Total 2928.00 / 3108.00 1549.67 / 1789.67 700.51 / 700.51 Output Total 550 / 550 525 / 775 250 / 250 Balance 2378.00 / 2558.00 1024.67 / 1014.67 450.51 / 450.51 Lab / Micro Data Attestation: I reviewed the patient's lab results. 01/07/24 07:14 01/07/24 07:14 Labs: Laboratory Results - last 24 hr 01/07/24 07:14: WBC 17.0 H, RBC 4.28 L, Hgb 11.9 L, Hct 37.1 L, MCV 86.7, MCH 27.8, MCHC 32.1, RDW Std Deviation 47.1 H, RDW Coeff of Emilee 15.0 H, Plt Count 281, MPV 10.1, Immature Gran % (Auto) 0.400, Neut % (Auto) 70.9 H, Lymph % (Auto) 19.6, [place] % (Auto) 7.6, Eos % (Auto) 1.3, Baso % (Auto) 0.2, Absolute Neuts (auto) 12.1 H, Absolute Lymphs (auto) 3.33, Nucleated RBC % 0, Sodium 139, Potassium 4.5, Chloride 106, Carbon Dioxide 23.0, Anion Gap 11, BUN 13, Creatinine 0.62 L, Estim Creat Clear Calc 139.98, Est GFR (MDRD) Af Amer 183, Est GFR (MDRD) Non-Af 152, BUN/Creatinine Ratio 21.0 H, Glucose 132 H, Calcium 9.4 Micro: Microbiology 01/04/24 21:27 Sputum, Induced/Lukens Gram Stain - Final 01/04/24 21:27 Sputum, Induced/Lukens Respiratory Culture - Preliminary Pseudomonas aeruginosa Proteus mirabilis Streptococcus agalactiae (B) 01/04/24 12:08 Blood Culture (Wb) - Left Hand Blood Culture - Preliminary No growth in 48 hours. 01/04/24 07:45 Blood Culture (Wb) - Port Blood Culture - Preliminary No growth in 48 hours. 01/04/24 08:05 Urine Catheter - Catheter Urine Culture - Final Culture exhibits no growth. 01/05/24 02:17 Nasal Secretion MRSA (PCR) - Final 01/04/24 14:33 Mucosa - Nose Respiratory Panel (PCR) - Final 01/04/24 08:05 Urine Catheter - Catheter Legionella Antigen - Final 01/04/24 08:05 Urine Catheter - Catheter Streptococcus pneumoniae Antigen (M - Final 01/04/24 08:00 Mucosa - Nasopharyngeal SARS-CoV-2, Influenza & RSV (PCR) - Final Radiography Diagnostic Testing: Radiology Impression Chest X-Ray 01/07/24 07:24 IMPRESSION: Limited inspiration. Findings suggestive of vascular congestion mild CHF. Cardiomegaly. Electronically Signed: Matti Greer MD at 7:53 EST Reading Location ID and State: [facility] / [place] , Service support , Rhythm Strip Rhythm Strip: Sinus Tach Rate: 109 Ectopy: None Physical Exam Const alert Constitutional Narrative: Nonverbal at baseline. Appears acutely distressed with increased work of breathing. Mother and father remain at the bedside. General Appearance: ill appearing HEENT head/scalp atraumatic and moist oral mucous membranes Eyes conjunctivae normal and no scleral icterus Neck supple Neck Narrative: Tracheostomy site intact. Chest inspection of chest normal Resp Effort and Inspection: tachypneic and labored Auscultation: Negative for rales, rhonchi or wheezes Cardio S1 normal heart sound and S2 normal heart sound Rate: tachycardic GI normal to inspection, nondistended, normoactive bowel sounds Inspection: GI tube present Extremity Extremity Narrative: Baseline contractures noted. General Extremity: Negative for clubbing or edema Skin no rashes or lesions noted Neuro Neuro Narrative: Appears to be at his baseline from a neurologic perspective. Charges/Coding Procedures Hospitalists Procedures: 38242 Critical Care 1st Hr
--- NOTE | 2024-01-07 09:35 | PCM.PN.INT ---
Subjective Subjective The patient was seen and examined at the bedside this morning. Events from the last 24 hours have been reviewed. The patient is currently afebrile, hemodynamically stable and maintaining appropriate oxygen saturations on [1]. Objective Data Objective Data Vital Signs: Vital Signs Temp Pulse Resp BP Pulse Ox O2 Del Method O2 Flow Rate 99.0 F 131 H 37 H 119/60 100 Mechanical Ventilator 4 01/07/24 04:30 01/07/24 08:39 01/07/24 08:39 01/07/24 04:30 01/07/24 08:39 01/07/24 07:20 01/07/24 07:20 FiO2 50 01/07/24 08:39 Oxygen Flow Rate (L/min) 4 Oxygen Delivery Method Mechanical Ventilator Weight: 182 lb 8.684 oz Body Mass Index (BMI) 35.6 Intake & Output: Intake and Output for Last 24 Hours 01/05/24 01/06/24 01/07/24 23:59 23:59 23:59 Intake Total 2928.00 / 3108.00 1549.67 / 1789.67 879.26 / 879.26 Output Total 550 / 550 525 / 775 250 / 250 Balance 2378.00 / 2558.00 1024.67 / 1014.67 629.26 / 629.26 Lab / Micro Data 01/07/24 07:14 01/07/24 07:14 Labs: Laboratory Results - last 24 hr 01/07/24 07:14: WBC 17.0 H, RBC 4.28 L, Hgb 11.9 L, Hct 37.1 L, MCV 86.7, MCH 27.8, MCHC 32.1, RDW Std Deviation 47.1 H, RDW Coeff of Emilee 15.0 H, Plt Count 281, MPV 10.1, Immature Gran % (Auto) 0.400, Neut % (Auto) 70.9 H, Lymph % (Auto) 19.6, [place] % (Auto) 7.6, Eos % (Auto) 1.3, Baso % (Auto) 0.2, Absolute Neuts (auto) 12.1 H, Absolute Lymphs (auto) 3.33, Nucleated RBC % 0, Sodium 139, Potassium 4.5, Chloride 106, Carbon Dioxide 23.0, Anion Gap 11, BUN 13, Creatinine 0.62 L, Estim Creat Clear Calc 139.98, Est GFR (MDRD) Af Amer 183, Est GFR (MDRD) Non-Af 152, BUN/Creatinine Ratio 21.0 H, Glucose 132 H, Calcium 9.4 Micro: Microbiology 01/04/24 21:27 Sputum, Induced/Lukens Gram Stain - Final 01/04/24 21:27 Sputum, Induced/Lukens Respiratory Culture - Preliminary Pseudomonas aeruginosa Proteus mirabilis Streptococcus agalactiae (B) 01/04/24 12:08 Blood Culture (Wb) - Left Hand Blood Culture - Preliminary No growth in 48 hours. 01/04/24 07:45 Blood Culture (Wb) - Port Blood Culture - Preliminary No growth in 48 hours. 01/04/24 08:05 Urine Catheter - Catheter Urine Culture - Final Culture exhibits no growth. 01/05/24 02:17 Nasal Secretion MRSA (PCR) - Final 01/04/24 14:33 Mucosa - Nose Respiratory Panel (PCR) - Final 01/04/24 08:05 Urine Catheter - Catheter Legionella Antigen - Final 01/04/24 08:05 Urine Catheter - Catheter Streptococcus pneumoniae Antigen (M - Final 01/04/24 08:00 Mucosa - Nasopharyngeal SARS-CoV-2, Influenza & RSV (PCR) - Final Radiography Diagnostic Testing: Radiology Impression Chest X-Ray 01/07/24 07:24 IMPRESSION: Limited inspiration. Findings suggestive of vascular congestion mild CHF. Cardiomegaly. Electronically Signed: Matti Greer MD at 7:53 EST , Rhythm Strip Rhythm Strip: Sinus Tach Rate: 109 Ectopy: None
[2024-01-07] MEDS: Lactobacillis Acidophilus 2 CAP GT (09:53)
[2024-01-07] MEDS: Enoxaparin 40 MG/0.4 ML Syringe SC (09:53)
[2024-01-07] MEDS: MONTELUKAST 4 MG PO (09:54)
[2024-01-07] MEDS: ESOMEPRAZOLE MAGNESIUM 40 MG SUSPDR.PKT GT ×2 (09:54→21:07)
--- NOTE | 2024-01-07 10:13 | CASEMGMT ---
On 01/04 @ 0947, Jen, VAZQUEZ planning intern, made a LAUREN referral to N. At this time, [facility] has not responded. This RN CM has called [facility] 3 times to ensure LAUREN is possible, if the pt were to DC home. This RN CM has still not received an answer or a TC back after leaving voice messages. This RN CM verified pt current oxygen orders, see note. Dr. Posadas states that the pt will be here through the weekend at least. CM and SW to continue to follow.
[2024-01-07 10:19] LABS: Lactic Acid 2.7 mmol/L (0.4-1.9)
[2024-01-07] MEDS: Vancomycin HCl 2,000 MG in 0.9% Normal Saline (500mL Bag) 500 ML 250 MG IV (10:43)
[2024-01-07] MEDS: Norepinephrine 8 MG in 0.9% Normal Saline (250mL Bag) 242 ML 9.4 MG CONT INF (10:43)
--- NOTE | 2024-01-07 11:10 | PCM.RX.CS ---
Consult Antibiotic Management Pharmacy has been consulted to manage selected antibiotic: Vancomycin Type of Intervention Type of Consult: New start Suspected Infection Suspected Infection: Pneumonia Prior Doses of Antibiotics Prior Doses of Antibiotics Received/Current Regimen: Vancomycin 2000 mg IV x 1 given 01/07/24 @ 1043 Labs Labs: Sodium 139 mmol/L (136-145) 01/07/24 07:14 Potassium 4.5 mmol/L (3.5-5.1) 01/07/24 07:14 Chloride 106 mmol/L (98-107) 01/07/24 07:14 Carbon Dioxide 23.0 mmol/L (21.0-32.0) 01/07/24 07:14 Anion Gap 11 (5-15) 01/07/24 07:14 BUN 13 mg/dL (7-18) 01/07/24 07:14 Creatinine 0.62 mg/dL (0.70-1.30) L 01/07/24 07:14 Est GFR (MDRD) Af Amer 183 mL/min (>60) 01/07/24 07:14 Est GFR (MDRD) Non-Af 152 mL/min (>60) 01/07/24 07:14 BUN/Creatinine Ratio 21.0 RATIO (10-20) H 01/07/24 07:14 Glucose 132 mg/dL (74-106) H 01/07/24 07:14 Microbiology Microbiology: Microbiology 01/04/24 21:27 Sputum, Induced/Lukens Gram Stain - Final 01/04/24 21:27 Sputum, Induced/Lukens Respiratory Culture - Final Pseudomonas aeruginosa Proteus mirabilis Streptococcus agalactiae (B) 01/07/24 09:12 Mucosa - Nasopharyngeal SARS-CoV-2, Influenza & RSV (PCR) - Final 01/04/24 12:08 Blood Culture (Wb) - Left Hand Blood Culture - Preliminary No growth in 48 hours. 01/04/24 07:45 Blood Culture (Wb) - Port Blood Culture - Preliminary No growth in 48 hours. 01/04/24 08:05 Urine Catheter - Catheter Urine Culture - Final Culture exhibits no growth. 01/05/24 02:17 Nasal Secretion MRSA (PCR) - Final 01/04/24 14:33 Mucosa - Nose Respiratory Panel (PCR) - Final 01/04/24 08:05 Urine Catheter - Catheter Legionella Antigen - Final 01/04/24 08:05 Urine Catheter - Catheter Streptococcus pneumoniae Antigen (M - Final 01/04/24 08:00 Mucosa - Nasopharyngeal SARS-CoV-2, Influenza & RSV (PCR) - Final Dosing Weight Weight used for dosin kg Estimated Creatinine Clearance Estimated Creatinine Clearance: ~ 140 Goal Trough Goal Trough: 15-20 mcg/mL Pharmacy Plan for Drug Dosing Pharmacy Plan for Drug Dosing: Vancomycin 2000 mg IV x 1 followed by 1000 mg Q8H Pharmacy Service will continue to monitor and adjust dosing as required. Follow-Up Labs Follow-Up Labs: Trough: Vancomycin Date/Time Labs Ordered Labs to be done on [date and time ordered]: 03/09/23 @ 9916
[2024-01-07] MEDS: dexAMETHasone 10 MG/ML Vial 6 MG IV (12:06)
[2024-01-07 13:07] LABS: Allen Test Positive; Base Excess -4 mmol/L (-2 to +2); Bicarbonate 19.9 mmol/L (22-26); Blood Gas Specimen Type ART; Comment home vent; Mode Not entered; O2 Delivery Device Adult Vent; PO2 96 mmHG (75-100); SITE L Radial; SO2 98 % (95-99); Total Carbon Dioxide 21 mmol/L; pCO2 27.7 mmHg (35-45); pH 7.46 (7.35-7.45)
--- NOTE | 2024-01-07 13:28 | PCM.PN.ID ---
Physical Exam Narrative Worsened condition, started on pressor. New rhinorrhea. No fever. Const no apparent distress Resp Effort and Inspection: mechanically ventilated Auscultation: diminished lung sounds Cardio Rate: tachycardic GI soft to palpation, non-tender and non-distended Skin no rashes or lesions noted ID ID: Route of nutrition/ use of supplements: [] Nutritional Intake: [] IV Site: [] Augustin Catheter: [] Assessment & Plan Assessment/Plan (1) Tracheostomy dependent: (2) Pneumonia: PLAN: Sputum cx with PsA, proteus, GBS. Now septic shock and covid (+). Cont zosyn. Will stop vanc given neg pcr and new dx of covid. On dex, will start iv remdesivir. Will follow, d/w Dr. Moreira (3) Cerebral palsy: QUALIFIERS: Cerebral palsy type: spastic quadriplegic Qualified Code(s): G80.0 - Spastic quadriplegic cerebral palsy
[2024-01-07 13:45] LABS: Reflex Lactate? Y
[2024-01-07] MEDS: Jevity 1.5 1,000 ML 40 ML GT (13:59)
[2024-01-07 15:17] LABS: Procalcitonin 0.22 ng/mL (0.00-0.09)
[2024-01-07] MEDS: Remdesivir 200 MG in 0.9% Normal Saline (250mL Bag) 210 ML 125 MG IV (15:47)
[2024-01-07] MEDS: CETIRIZINE HCL 1 MG/ML 10 MG GT (15:50)
[2024-01-08] VITALS (42 sets, daily range): BP systolic 71–158; BP diastolic 37–132; PULSE 49–124; RESP 10–30; TEMP 36.5–37.1; O2SAT 90–100; BMI 35.2
[2024-01-08] MEDS: Baclofen 10 MG Tablet 20 MG GT ×5 (01:05→23:27)
[2024-01-08] MEDS: Acetaminophen 325 MG Tablet 650 MG GT ×2 (01:05→17:51)
[2024-01-08] MEDS: GABAPENTIN 250 MG/5 ML SOLUTION 500 MG GT ×5 (01:06→23:27)
[2024-01-08] MEDS: Piperacil/Tazobactam 3.375 GM in 0.9% Normal Saline (50mL MB+) 50 ML IV ×3 (05:25→21:54)
[2024-01-08] MEDS: 0.9% Saline Lock 10 ML Syringe IV (05:41)
[2024-01-08] MEDS: dexMEDEtomidine 400 MCG in 0.9% Normal Saline (100mL Bag) 96 ML 10.4 MCG CONT INF (05:46)
[2024-01-08 06:06] LABS: Absolute Lymphocyte Count 2.15 X10^3/uL (0.83-4.51); Absolute Neutrophil Count 3.2 X10^3/uL (2.0-7.7); Basophil# 0.01 X10^3/uL; Basophil% 0.2 % (0-1); Eosinophil# 0.12 X10^3/uL; Eosinophils% 1.9 % (0-5); Hematocrit 26.7 % (40-54); Hemoglobin 8.7 g/dL (13.0-16.5); Lymphocyte # 2.15 X10^3/ul (0.83-4.51); Lymphocyte % 34.7 % (19-41); Mean Corp Hgb Conc 32.6 g/dL (32-36); Mean Corpuscular Hgb 28.2 pg (27.0-32.0); Mean Corpuscular Volume 86.7 fL (80-94); Mean Platelet Vol. 10.4 fl (6.2-12.0); Monocyte% 11.3 % (0-10); NRBC Flagged by Analyzer 0 % (0-5); Neutrophil # 3.19 X10^3/uL (2.7-7.7); Neutrophil % 51.6 % (47-70); Platelet Count 154 K/mm3 (150-450); RBC Distribution Width CV 15.1 % (11.6-14.6); RBC Distribution Width SD 47.9 fl (35.1-43.9); Red Blood Count 3.08 M/mm3 (4.6-6.2); White Blood Count 6.2 K/mm3 (4.4-11.0)
[2024-01-08 06:55] LABS: ALB/GLOB Ratio 0.7 RATIO (0.9-2.4); AST(SGOT) 14 U/L (15-37); Alanine Aminotransfer ALT/SGPT 23 U/L (16-61); Albumin, Serum 2.7 g/dL (3.2-5.0); Alkaline Phosphatase 114 U/L (45-117); Anion Gap 4 (5-15); BUN 11 mg/dL (7-18); BUN/Creat Ratio 34.5 RATIO (10-20); Chloride 109 mmol/L (98-107); Creatinine, Serum 0.32 mg/dL (0.70-1.30); EST Glomerular Filtration Rate 326 mL/min (>60); Est Glom Filt Rate - Afr Amer 394 mL/min (>60); Estimated Creatinine Clearance 268.81 ml/min; Globulin 4.1 g/dL (2.2-4.2); Glucose 90 mg/dL (74-106); Potassium 3.1 mmol/L (3.5-5.1); Protein, Total 6.8 g/dL (6.4-8.2); Sodium Level 140 mmol/L (136-145)
--- NOTE | 2024-01-08 07:44 | PN.HOSP_ITS ---
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/04/24) Subjective Subjective Patient went into respiratory distress and became hypotensive. Repeat viral respiratory assay came back positive for COVID. Patient was also started on Levophed Objective Data Objective Data Vital Signs: Vital Signs Temp Pulse Resp BP Pulse Ox O2 Del Method O2 Flow Rate 98.7 F 56 L 16 97/61 94 Mechanical Ventilator 4 01/08/24 04:00 01/08/24 07:00 01/08/24 07:00 01/08/24 07:00 01/08/24 07:00 01/08/24 07:00 01/07/24 07:20 FiO2 35 01/08/24 07:00 Oxygen Flow Rate (L/min) 4 Oxygen Delivery Method Mechanical Ventilator Weight: 81.4 kg Body Mass Index (BMI) 35.2 Intake & Output: Intake and Output for Last 24 Hours 01/06/24 01/07/24 01/08/24 23:59 23:59 23:59 Intake Total 1549.67 / 1789.67 2249.62 / 2399.62 912.27 / 912.27 Output Total 525 / 775 1400 / 1500 150 / 150 Balance 1024.67 / 1014.67 849.62 / 899.62 762.27 / 762.27 Lab / Micro Data 01/08/24 05:40 01/08/24 05:40 Labs: Laboratory Results - last 24 hr 01/07/24 07:14: Sodium 139, Potassium 4.5, Chloride 106, Carbon Dioxide 23.0, Anion Gap 11, BUN 13, Creatinine 0.62 L, Estim Creat Clear Calc 139.98, Est GFR (MDRD) Af Amer 183, Est GFR (MDRD) Non-Af 152, BUN/Creatinine Ratio 21.0 H, G lucose 132 H, Calcium 9.4 01/07/24 09:40: Lactic Acid 2.7 H* 01/07/24 13:30: Procalcitonin 0.22 H 01/07/24 14:30: Lactic Acid 1.0 01/08/24 05:40: WBC 6.2, RBC 3.08 L, Hgb 8.7 L, Hct 26.7 L, MCV 86.7, MCH 28.2, MCHC 32.6, RDW Std Deviation 47.9 H, RDW Coeff of Emilee 15.1 H, Plt Count 154, MPV 10.4, Immature Gran % (Auto) 0.300, Neut % (Auto) 51.6, Lymph % (Auto) 34.7, M zhen % (Auto) 11.3 H, Eos % (Auto) 1.9, Baso % (Auto) 0.2, Absolute Neuts (auto) 3.2, Absolute Lymphs (auto) 2.15, Nucleated RBC % 0, Sodium 140, Potassium 3.1 L , Chloride 109 H, Carbon Dioxide 28.0, Anion Gap 4 L, BUN 11, Creatinine 0.32 L, Estim Creat Clear Calc 268.81, Est GFR (MDRD) Af Amer 394, Est GFR (MDRD) Non-Af 326, BUN/Creatinine Ratio 34.5 H, Glucose 90, Calcium 8.0 L, Total Bilirubin 0.20, AST 14 L, ALT 23, Alkaline Phosphatase 114, Total Protein 6.8, Albumin 2.7 L, Globulin 4.1, Albumin/Globulin Ratio 0.7 L Micro: Microbiology 01/07/24 09:12 Mucosa - Nasopharyngeal SARS-CoV-2, Influenza & RSV (PCR) - Final SARS-CoV-2 (COVID 19 PCR) 01/04/24 21:27 Sputum, Induced/Lukens Gram Stain - Final 01/04/24 21:27 Sputum, Induced/Lukens Respiratory Culture - Final Pseudomonas aeruginosa Proteus mirabilis Streptococcus agalactiae (B) 01/04/24 12:08 Blood Culture (Wb) - Left Hand Blood Culture - Preliminary No growth in 48 hours. 01/04/24 07:45 Blood Culture (Wb) - Port Blood Culture - Preliminary No growth in 48 hours. 01/04/24 08:05 Urine Catheter - Catheter Urine Culture - Final Culture exhibits no growth. 01/05/24 02:17 Nasal Secretion MRSA (PCR) - Final 01/04/24 14:33 Mucosa - Nose Respiratory Panel (PCR) - Final 01/04/24 08:05 Urine Catheter - Catheter Legionella Antigen - Final 01/04/24 08:05 Urine Catheter - Catheter Streptococcus pneumoniae Antigen (M - Final 01/04/24 08:00 Mucosa - Nasopharyngeal SARS-CoV-2, Influenza & RSV (PCR) - Final ABG Data ABG results: ABG 01/07/24 08:31 Specimen Type ART Sample Site L Radial pH 7.46 H Bicarbonate Actual 19.9 L Total CO2 21 Base Excess -4 L O2 Saturation 98 ABG pCO2 27.7 L ABG pO2 96 Tutu Test Positive O2 Delivery Device Adult Vent Vent Mode Not entered Clinical Comments home vent Radiography Diagnostic Testing: Radiology Impression Chest X-Ray 01/07/24 07:24 IMPRESSION: Limited inspiration. Findings suggestive of vascular congestion mild CHF. Cardiomegaly. Electronically Signed: Matti Greer MD at 7:53 EST , Abdomen/Pelvis CT 01/07/24 08:49 IMPRESSION: Fecal impaction in the rectal remnant. Electronically Signed: Matti Greer MD at 11:47 EST , Chest CTA 01/07/24 08:49 IMPRESSION: Limited inspiratory effort. No evidence of pulmonary embolism. Patchy infiltrates in both lungs as described worse on the right side. Electronically Signed: Matti Greer MD at 11:44 EST , Rhythm Strip Rhythm Strip: Sinus Tach Rate: 109 Ectopy: None Physical Exam Narrative GENERAL: Patient appears uncomfortable HEENT: Atraumatic; normal conjunctiva EYES; Anicteric, Normal Conjunctiva NECK; trach in place RESPIRATORY: Diminished to auscultation CARDIOVASCULAR: Regular S1 S2, GI: soft, normoactive bowel sounds, : No Renal angle tenderness; EXTREMITIES: No edema, no clubbing, MUSCULOSKELETAL: Contractures NEURO: Awake; noncommunicative SKIN: Flushed Assessment & Plan Assessment/Plan (1) Fever of unknown origin (FUO): PLAN: Plan Patient is a 43-year-old gentleman with history of cerebral palsy with quadriplegia and chronic respiratory failure vent dependent admitted with fever and tachycardia 1. Acute febrile illness secondary to COVID-19 infection ? Etiology not clear at this point imaging studies obtained demonstrated scattered atelectatic changes or scarring. No parenchymal consolidation or pleural effusions. Admitted to monitored bed ordered viral respiratory panel as well as cultures. Patient started on empiric antibiotic therapy for possible bronchitis ? 01/05/2024;Patient spiked fever of 101.4 during the night antibiotics subsequently adjusted from Rocephin and azithromycin to Zosyn and vancomycin -01/06/2024;Tmax over the past 24 hours 99.3. Patient respiratory cultures positive for gram-negative lyn final identification and sensitivities pending. ? 01/07/2024atient sputum cultures so far positive for Pseudomonas and a second gram-negative lyn organism identification and sensitivity still pending. Patient seen appears flushed and appears to be struggling breathing. Ordered VBG as well as check surgery patient has been suctioned by nursing staff. Plan is to place patient on Precedex ? 01/08/2024; repeat COVID assay came back positive patient started on dexamethasone as well as remdesivir 2. Septic shock ? Secondary to patient acute febrile illness patient does not meet criteria for sepsis ? 01/05/2024 did institute IV fluid per sepsis protocol after patient became hypotensive. Patient also did spike fever of 101.4 ? 01/08/2024 patient COVID assay came back positive subsequently started on dexamethasone and remdesivir resuscitated with IV fluid and started on norepinephrine 3. Chronic respiratory failure ? Secondary to cerebral palsy patient is vent dependent. Plan is to continue with patient home vent settings well as inpatient 4. 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 Seizure disorder ? On phenobarb and gabapentin and Ativan 6. Chronic dysphagia ? Status post PEG tube. Currently on Jevity 1.2 nery/ml rate 65 cc during the day and 45 cc. Denies with 100 cc water flushes throughout the day 7. GERD ? On PPI continue 8. DVT prophylaxis ? Lovenox 9. Anemia ? Secondary to chronic disorder monitoring H&H and transfuse if patient becomes symptomatic or hemoglobin falls below 7 10. Hypokalemia ? Corrected per protocol repeat labs ordered for eval following correction ? 01/08/2024 potassium remains low at 3.1 additional replacement given Time spent in the patient's overall evaluation,decision-making process, review of diagnostic data, adjustment of management, discussion with other providers, nursing nursing and ancillary staff involved in patient's care documentation, 50 minutes Charges/Coding Visit Charges Inpatient E&M: 53660 [facility] L3
[2024-01-08] MEDS: PLECANATIDE 3 MG TABLET GT (08:11)
[2024-01-08] MEDS: Phenobarbital 20 MG/5 ML UDC 60 MG GT ×2 (08:25→21:55)
[2024-01-08] MEDS: Metoclopramide 10 MG/10 ML UDC GT ×3 (08:25→21:54)
[2024-01-08] MEDS: Potassium Chloride Oral Tablet 20 MEQ GT ×2 (08:25→17:52)
[2024-01-08] MEDS: Doxazosin 1 MG Tablet 2 MG GT (08:25)
[2024-01-08] MEDS: Potassium Chloride 10mEq/100mL 10 MEQ/100 ML IV.SOLN. 100 MEQ IV BOLUS ×4 (09:38→15:11)
[2024-01-08] MEDS: MONTELUKAST 4 MG PO (10:57)
[2024-01-08] MEDS: ESOMEPRAZOLE MAGNESIUM 40 MG SUSPDR.PKT GT ×2 (10:58→23:27)
[2024-01-08] MEDS: Enoxaparin 40 MG/0.4 ML Syringe SC (11:01)
[2024-01-08] MEDS: Lactobacillis Acidophilus 2 CAP GT (11:01)
[2024-01-08] MEDS: dexAMETHasone 10 MG/ML Vial 6 MG IV (11:01)
[2024-01-08] MEDS: Remdesivir 100 MG in 0.9% Normal Saline (250mL Bag) 230 ML 125 MG IV (12:28)
--- NOTE | 2024-01-08 13:59 | PCM.PN.TICU ---
Objective Data Objective Data Vital Signs: Vital Signs Last response Temperature 36.8 C 01/08/24 12:00 Temperature Source Temporal 01/08/24 12:00 Pulse Rate 94 01/08/24 13:00 Pulse Strength Normal (2+) 01/07/24 10:00 Respiratory Rate 18 01/08/24 13:00 Respiratory Effort Mechanically Ventilated 01/08/24 12:00 Respiratory Depth Normal 01/08/24 12:00 Respiratory Pattern Normal 01/08/24 12:00 Blood Pressure 128/90 H 01/08/24 13:00 Blood Pressure Mean 102 01/08/24 13:00 Blood Pressure Source Monitor 01/08/24 13:00 Blood Pressure Position Semi-Fowlers 01/08/24 13:00 Blood Pressure Location Left Forearm 01/08/24 13:00 Pulse Ox 95 01/08/24 13:00 Oxygen Delivery Method Mechanical Ventilator 01/08/24 13:00 Oxygen Flow Rate (L/min) 4 01/07/24 07:20 Fraction of Inspired Oxygen (FIO2) 35 01/08/24 13:00 I&O: I&O Last 24 Hours 01/07/24 01/08/24 01/08/24 23:59 11:59 23:59 Intake Total 1176.01 / 2399.62 1243.47 / 1493.47 250 / 1493.47 Output Total 1150 / 1500 150 / 150 Balance 26.01 / 899.62 1093.47 / 1343.47 250 / 1343.47 I&O: Total Stay 01/04/24 07:10 thru 01/08/24 13:51 Intake Total 9080.91 Output Total 2920 Balance 6160.91 Current Meds Ordered / Administered: Current meds ordered / Administered Generic Name Dose Route Start Last Admin Trade Name Freq PRN Reason Stop Dose Admin Acetaminophen 650 mg 01/05/24 01:43 01/08/24 01:05 Acetaminophen 325 Mg Tablet GT 650 mg Q4H PRN PRN Administration Pain 1-10 Or Fever>100.7 Al Hydroxide/Mg Hydroxide 2.5 ml 01/04/24 12:58 Mag Hydrox/Al Hydrox/Simeth 30 Ml Udc PO 0000,0600,1200,1800 PRN ANTACID Albuterol Sulfate 2.5 mg 01/04/24 11:54 Albuterol 2.5 Mg/3 Ml Vial.Neb. INHALATION Q2H PRN PRN SOB &/OR WHEEZING Baclofen 20 mg 01/04/24 18:00 01/08/24 12:28 Baclofen 10 Mg Tablet GT 20 mg Q6H JOYCE Administration Cetirizine HCl 10 mg 01/04/24 16:00 01/07/24 15:50 Cetirizine Hcl 1 Mg/Ml Solution GT 10 mg 1600 JOYCE Administration Dexamethasone Sodium Phosphate 6 mg 01/07/24 10:25 01/08/24 11:01 Dexamethasone 10 Mg/Ml Vial IV 6 mg DAILY JOYCE Administration Doxazosin Mesylate 2 mg 01/05/24 08:30 01/08/24 08:25 Doxazosin 1 Mg Tablet GT 2 mg 0830 JOYCE Administration Enoxaparin Sodium 40 mg 01/05/24 10:00 01/08/24 11:01 Enoxaparin 40 Mg/0.4 Ml Syringe SC 40 mg DAILY JOYCE Administration Esomeprazole Magnesium 40 mg 01/04/24 22:00 01/08/24 10:58 Esomeprazole Magnesium 40 Mg Suspdr.Pkt GT 40 mg BID JOYCE Administration Gabapentin 500 mg 01/04/24 18:00 01/08/24 12:29 Gabapentin 250 Mg/5 Ml Solution GT 500 mg 0000,0600,1200,1800 JOYCE Administration Guaifenesin 10 ml 01/04/24 12:53 Guaifenesin 10 Ml Udc (200mg/10ml) GT 0830 PRN COUGH/CONGESTION Enteral Nutritional Formula 1,000 mls @ 60 mls/hr 01/04/24 14:00 01/08/24 03:00 Jevity 1.5 GT 45 mls/hr .[id number] JOYCE Infusion Sodium Chloride 500 mls @ 15 mls/hr 01/04/24 14:24 IV .[id number] PRN Saline Flush Sodium Chloride 500 mls @ 15 mls/hr 01/04/24 14:24 IV .[id number] PRN Additional IVPB Infusion Piperacillin Sod/Tazobactam 50 mls @ 12.5 mls/hr 01/05/24 02:10 01/08/24 09:25 Sod 3.375 gm/ Sodium Chloride IV Infused Q8 JOYCE Infusion Dexmedetomidine HCl 400 mcg/ 100 mls @ 10.35 mls/hr 01/07/24 07:45 01/08/24 13:37 Sodium Chloride CONT INF Not Given .[id number] JOYCE Protocol 0.5 MCG/KG/HR Norepinephrine Bitartrate 8 mg 250 mls @ 9.375 mls/hr 01/07/24 09:50 01/08/24 13:36 / Sodium Chloride CONT INF Not Given .[id number] JOYCE Protocol 5 MCG/MIN Remdesivir 100 mg/ Sodium 250 mls @ 125 mls/hr 01/08/24 10:00 01/08/24 12:28 Chloride IV 01/11/24 11:59 125 mls/hr DAILY JOYCE Administration Protocol Ketorolac Tromethamine 15 mg 01/05/24 01:42 01/07/24 06:46 Ketorolac 15 Mg/Ml Vial IV 01/10/24 01:43 15 mg Q8H PRN PRN Administration Pain 1-10, fever breakthrough Lorazepam 2 mg 01/04/24 11:54 01/07/24 05:05 Lorazepam 2 Mg/Ml Bottle GT 2 mg DAILY PRN Administration agitation Metoclopramide HCl 10 mg 01/04/24 16:00 01/08/24 08:25 Metoclopramide 10 Mg/10 Ml Udc GT 10 mg 0830,1600,2100 JOYCE Administration Montelukast Sodium 4 mg 01/05/24 10:00 01/08/24 10:57 Montelukast Sodium 4 Mg Gran.Pack PO 4 mg DAILY JOYCE Administration Ondansetron HCl 4 mg 01/04/24 11:54 01/05/24 00:05 Ondansetron 4 Mg/2 Ml Vial IV 4 mg Q8H PRN PRN Administration NAUSEA/VOMITING Phenobarbital 60 mg 01/04/24 21:00 01/08/24 08:25 Phenobarbital 20 Mg/5 Ml Udc GT 60 mg 0830,2100 JOYCE Administration Potassium Chloride 20 meq 01/08/24 08:00 01/08/24 08:25 Potassium Chloride Oral Tablet 20 Meq GT 20 meq BIDCM JOYCE Administration Sodium Chloride 10 - 40 ml 01/04/24 14:24 01/08/24 05:41 0.9% Saline Lock 10 Ml Syringe IV 20 ml UD PRN Administration SALINE FLUSH Lab / Micro Data 01/08/24 05:40 01/08/24 05:40 Labs: Laboratory Results - last 24 hr 01/07/24 13:30: Procalcitonin 0.22 H 01/07/24 14:30: Lactic Acid 1.0 01/08/24 05:40: WBC 6.2, RBC 3.08 L, Hgb 8.7 L, Hct 26.7 L, MCV 86.7, MCH 28.2, MCHC 32.6, RDW Std Deviation 47.9 H, RDW Coeff of Emilee 15.1 H, Plt Count 154, MPV 10.4, Immature Gran % (Auto) 0.300, Neut % (Auto) 51.6, Lymph % (Auto) 34.7, [place] % (Auto) 11.3 H, Eos % (Auto) 1.9, Baso % (Auto) 0.2, Absolute Neuts (auto) 3.2, Absolute Lymphs (auto) 2.15, Nucleated RBC % 0, Sodium 140, Potassium 3.1 L, Chloride 109 H, Carbon Dioxide 28.0, Anion Gap 4 L, BUN 11, Creatinine 0.32 L, Estim Creat Clear Calc 268.81, Est GFR (MDRD) Af Amer 394, Est GFR (MDRD) Non-Af 326, BUN/Creatinine Ratio 34.5 H, Glucose 90, Calcium 8.0 L, Total Bilirubin 0.20, AST 14 L, ALT 23, Alkaline Phosphatase 114, Total Protein 6.8, Albumin 2.7 L, Globulin 4.1, Albumin/Globulin Ratio 0.7 L Micro: Microbiology 01/07/24 09:12 Mucosa - Nasopharyngeal SARS-CoV-2, Influenza & RSV (PCR) - Final SARS-CoV-2 (COVID 19 PCR) 01/04/24 21:27 Sputum, Induced/Lukens Gram Stain - Final 01/04/24 21:27 Sputum, Induced/Lukens Respiratory Culture - Final Pseudomonas aeruginosa Proteus mirabilis Streptococcus agalactiae (B) Rhythm Strip Rhythm Strip: Sinus Tach Rate: 109 Ectopy: None Assessment and Plan . Assessment and plan: HPI 43 yo obese man w/ CP, spastic quadriparesis, chronic respiratory failure w/ tracheostomy, admitted w/ ARF requiring MV support. Co-V PCR is (+) CTA 01/06 w/o PTED, but bilateral infiltrate/ATX present He is receiving dexamethasone, anti-virals, empiric anti-bacterials MV reviewed and adjusted at MV 9-10 LPM, poor synchrony w/ VCV He has been on and off Precedex and NE infusions I/O (+)(+) PHYSICAL EXAM GEN NAD - restless VS as above HEENT o/p clear NECK obese, midline tube COR RRR CHEST coarse, diminished ABD soft, obese, PEG EXT minimal edema SKIN w/d JAIR severe spasticity ASSESSMENT 1. ARF / CRF 2. Tracheostomy in place / chronic MV support 3. Pulmonary infiltrates 4. Co-V (+) 5. CP w/ severe spasticity 6. Obesity TREATMENT PLAN -MV support - adjusted and reviewed at BS -anxiolysis as needed -IV ABX - defer to ID -receiving dexamethasone and anti-virals -sq LMWH -sq insulin -enteral nutrition -check BNP -50 min CCT -the entirety of this encounter performed using telemedicine
[2024-01-08] MEDS: CETIRIZINE HCL 1 MG/ML 10 MG GT (16:12)
[2024-01-08] MEDS: LORazepam 2 MG/ML Bottle GT (16:16)
[2024-01-08] MEDS: Jevity 1.5 1,000 ML 45 ML GT (17:52)
[2024-01-09] VITALS (30 sets, daily range): BP systolic 99–146; BP diastolic 60–99; PULSE 77–106; RESP 10–25; TEMP 36.6–37.4; O2SAT 92–100; BMI 35.8
[2024-01-09] MEDS: Acetaminophen 325 MG Tablet 650 MG GT (02:29)
--- NOTE | 2024-01-09 05:00 | RAD_ITS ---
INDICATION: ARF EXAMINATION/TECHNIQUE: X-RAY - XR Chest 1 View COMPARISON: 01/07/2024. FINDINGS: LINES/DEVICES: Tracheostomy tube overlies the trachea. Stable right chest port. LUNGS: No consolidation or evidence of an effusion. No evidence of edema or a pneumothorax. MEDIASTINUM AND CARDIOVASCULAR STRUCTURES: Cardiac silhouette is normal in size and contour. Mediastinum is unremarkable. BONES AND SOFT TISSUES: No acute abnormality. RAD/Chest 1 View (Portable) IMPRESSION: No evidence of acute cardiopulmonary disease. Electronically Signed: Gerald Traore DO at 6:11 EST ,
[2024-01-09] MEDS: Piperacil/Tazobactam 3.375 GM in 0.9% Normal Saline (50mL MB+) 50 ML IV ×3 (05:25→21:10)
[2024-01-09] MEDS: Baclofen 10 MG Tablet 20 MG GT ×4 (05:25→23:38)
[2024-01-09] MEDS: GABAPENTIN 250 MG/5 ML SOLUTION 500 MG GT ×4 (05:26→23:38)
[2024-01-09] MEDS: 0.9% Saline Lock 10 ML Syringe IV (05:34)
[2024-01-09 05:49] LABS: Absolute Lymphocyte Count 2.45 X10^3/uL (0.83-4.51); Absolute Neutrophil Count 2.3 X10^3/uL (2.0-7.7); Basophil# 0.02 X10^3/uL; Basophil% 0.4 % (0-1); Eosinophil# 0.13 X10^3/uL; Eosinophils% 2.4 % (0-5); Hematocrit 27.7 % (40-54); Hemoglobin 8.9 g/dL (13.0-16.5); Lymphocyte # 2.45 X10^3/ul (0.83-4.51); Lymphocyte % 44.5 % (19-41); Mean Corp Hgb Conc 32.1 g/dL (32-36); Mean Corpuscular Hgb 28.3 pg (27.0-32.0); Mean Corpuscular Volume 87.9 fL (80-94); Mean Platelet Vol. 9.9 fl (6.2-12.0); Monocyte# 0.58 X10^3/uL; Monocyte% 10.5 % (0-10); NRBC Flagged by Analyzer 0 % (0-5); Neutrophil # 2.32 X10^3/uL (2.7-7.7); Platelet Count 161 K/mm3 (150-450); RBC Distribution Width CV 15.4 % (11.6-14.6); RBC Distribution Width SD 48.7 fl (35.1-43.9); Red Blood Count 3.15 M/mm3 (4.6-6.2); White Blood Count 5.5 K/mm3 (4.4-11.0)
[2024-01-09 06:14] LABS: Phosphorus 3.7 mg/dL (2.5-4.9)
[2024-01-09 06:15] LABS: BNP,B-Type NATRIURETIC PEPTIDE 33.2 pg/mL (0-100)
[2024-01-09 06:16] LABS: ALB/GLOB Ratio 0.6 RATIO (0.9-2.4); AST(SGOT) 16 U/L (15-37); Alanine Aminotransfer ALT/SGPT 20 U/L (16-61); Albumin, Serum 2.7 g/dL (3.2-5.0); Alkaline Phosphatase 109 U/L (45-117); Anion Gap 5 (5-15); BUN 13 mg/dL (7-18); Calcium,Total 7.8 mg/dL (8.5-10.1); Chloride 110 mmol/L (98-107); Creatinine, Serum 0.33 mg/dL (0.70-1.30); EST Glomerular Filtration Rate 310 mL/min (>60); Est Glom Filt Rate - Afr Amer 375 mL/min (>60); Estimated Creatinine Clearance 260.67 ml/min; Globulin 4.3 g/dL (2.2-4.2); Glucose 91 mg/dL (74-106); Magnesium 2.1 mg/dL (1.6-2.6); Potassium 3.5 mmol/L (3.5-5.1); Sodium Level 139 mmol/L (136-145)
--- NOTE | 2024-01-09 07:22 | PCM.PN.HOSP ---
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 Patient remains on the vent. Objective Data Objective Data Vital Signs: Vital Signs Temp Pulse Resp BP Pulse Ox O2 Del Method O2 Flow Rate 97.9 F 89 15 105/67 96 Mechanical Ventilator 4 01/09/24 05:00 01/09/24 07:15 01/09/24 07:15 01/09/24 07:00 01/09/24 07:15 01/09/24 07:00 01/07/24 07:20 FiO2 30 01/09/24 07:15 Oxygen Flow Rate (L/min) 4 Oxygen Delivery Method Mechanical Ventilator Weight: 82.7 kg Body Mass Index (BMI) 35.8 Intake & Output: Intake and Output for Last 24 Hours 01/07/24 01/08/24 01/09/24 23:59 23:59 23:59 Intake Total 2249.62 / 2399.62 2772.80 / 3072.80 550 / 550 Output Total 1400 / 1500 550 / 650 275 / 275 Balance 849.62 / 899.62 2222.80 / 2422.80 275 / 275 Lab / Micro Data 01/09/24 05:35 01/09/24 05:35 Labs: Laboratory Results - last 24 hr 01/09/24 05:35: WBC 5.5, RBC 3.15 L, Hgb 8.9 L, Hct 27.7 L, MCV 87.9, MCH 28.3, MCHC 32.1, RDW Std Deviation 48.7 H, RDW Coeff of Emilee 15.4 H, Plt Count 161, MPV 9.9, Immature Gran % (Auto) 0.200, Neut % (Auto) 42.0 L, Lymph % (Auto) 44.5 H, [place] % (Auto) 10.5 H, Eos % (Auto) 2.4, Baso % (Auto) 0.4, Absolute Neuts (auto) 2.3, Absolute Lymphs (auto) 2.45, Nucleated RBC % 0, Sodium 139, Potassium 3.5, Chloride 110 H, Carbon Dioxide 24.0, Anion Gap 5, BUN 13, Creatinine 0.33 L, Estim Creat Clear Calc 260.67, Est GFR (MDRD) Af Amer 375, Est GFR (MDRD) Non-Af 310, BUN/Creatinine Ratio 39.0 H, Glucose 91, Calcium 7.8 L, Phosphorus 3.7, Magnesium 2.1, Total Bilirubin 0.30, AST 16, ALT 20, Alkaline Phosphatase 109, B-Natriuretic Peptide 33.2, Total Protein 7.0, Albumin 2.7 L, Globulin 4.3 H, Albumin/Globulin Ratio 0.6 L Micro: Microbiology 01/07/24 09:12 Mucosa - Nasopharyngeal SARS-CoV-2, Influenza & RSV (PCR) - Final SARS-CoV-2 (COVID 19 PCR) 01/04/24 21:27 Sputum, Induced/Lukens Gram Stain - Final 01/04/24 21:27 Sputum, Induced/Lukens Respiratory Culture - Final Pseudomonas aeruginosa Proteus mirabilis Streptococcus agalactiae (B) 01/04/24 12:08 Blood Culture (Wb) - Left Hand Blood Culture - Preliminary No growth in 48 hours. 01/04/24 07:45 Blood Culture (Wb) - Port Blood Culture - Preliminary No growth in 48 hours. 01/04/24 08:05 Urine Catheter - Catheter Urine Culture - Final Culture exhibits no growth. 01/05/24 02:17 Nasal Secretion MRSA (PCR) - Final 01/04/24 14:33 Mucosa - Nose Respiratory Panel (PCR) - Final 01/04/24 08:05 Urine Catheter - Catheter Legionella Antigen - Final 01/04/24 08:05 Urine Catheter - Catheter Streptococcus pneumoniae Antigen (M - Final 01/04/24 08:00 Mucosa - Nasopharyngeal SARS-CoV-2, Influenza & RSV (PCR) - Final Radiography Diagnostic Testing: Radiology Impression Chest X-Ray 01/09/24 05:00 IMPRESSION: No evidence of acute cardiopulmonary disease. Electronically Signed: Gerald Traore DO at 6:11 EST , Rhythm Strip Rhythm Strip: Sinus Tach Rate: 109 Ectopy: None Physical Exam Narrative GENERAL: Patient appears restful on the vent HEENT: Atraumatic; normal conjunctiva EYES; Anicteric, Normal Conjunctiva NECK; trach in place RESPIRATORY: Diminished to auscultation CARDIOVASCULAR: Regular S1 S2, GI: soft, normoactive bowel sounds, : No Renal angle tenderness; EXTREMITIES: No edema, no clubbing, MUSCULOSKELETAL: Contractures NEURO: Awake; noncommunicative SKIN: Flushed Assessment & Plan Assessment/Plan (1) Fever of unknown origin (FUO): PLAN: Plan Patient is a 43-year-old gentleman with history of cerebral palsy with quadriplegia and chronic respiratory failure vent dependent admitted with fever and tachycardia 1. Acute febrile illness secondary to COVID-19 infection ? Etiology not clear at this point imaging studies obtained demonstrated scattered atelectatic changes or scarring. No parenchymal consolidation or pleural effusions. Admitted to monitored bed ordered viral respiratory panel as well as cultures. Patient started on empiric antibiotic therapy for possible bronchitis ? 01/05/2024;Patient spiked fever of 101.4 during the night antibiotics subsequently adjusted from Rocephin and azithromycin to Zosyn and vancomycin -01/06/2024;Tmax over the past 24 hours 99.3. Patient respiratory cultures positive for gram-negative lyn final identification and sensitivities pending. ? 01/07/2024atient sputum cultures so far positive for Pseudomonas and a second gram-negative lyn organism identification and sensitivity still pending. Patient seen appears flushed and appears to be struggling breathing. Ordered VBG as well as check surgery patient has been suctioned by nursing staff. Plan is to place patient on Precedex ? 01/08/2024; repeat COVID assay came back positive patient started on dexamethasone as well as remdesivir ? 01/09/2024; patient responding to treatment currently afebrile WBC count down. 2. Septic shock secondary to bacterial bronchitis as well as COVID 19 ? Secondary to patient acute febrile illness patient does not meet criteria for sepsis ? 01/05/2024 did institute IV fluid per sepsis protocol after patient became hypotensive. Patient also did spike fever of 101.4 ? 01/08/2024 patient COVID assay came back positive subsequently started on dexamethasone and remdesivir resuscitated with IV fluid and started on norepinephrine ? 01/09/2024 tracheal aspirate cultures came positive for Pseudomonas aeruginosa; Proteus mirabilis, Streptococcus agalactiae (B). Patient remains on Zosyn ID on board 3. Chronic respiratory failure ? Secondary to cerebral palsy patient is vent dependent. Plan is to continue with patient home vent settings well as inpatient 4. 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 Seizure disorder ? On phenobarb and gabapentin and Ativan 6. Chronic dysphagia ? Status post PEG tube. Currently on Jevity 1.2 nery/ml rate 65 cc during the day and 45 cc. Denies with 100 cc water flushes throughout the day 7. GERD ? On PPI continue 8. DVT prophylaxis ? Lovenox 9. Anemia ? Secondary to chronic disorder monitoring H&H and transfuse if patient becomes symptomatic or hemoglobin falls below 7 ? 01/09/2024; hemoglobin down to 8.9 no indication for transfusion at this point 10. Hypokalemia ? Corrected per protocol repeat labs ordered for eval following correction ? 01/08/2024 potassium remains low at 3.1 additional replacement given Charges/Coding Visit Charges Inpatient E&M: 89751 Subs Hosp L3
[2024-01-09] MEDS: Doxazosin 1 MG Tablet 2 MG GT (08:17)
[2024-01-09] MEDS: Phenobarbital 20 MG/5 ML UDC 60 MG GT ×2 (08:17→21:09)
[2024-01-09] MEDS: Potassium Chloride Oral Tablet 20 MEQ GT (08:17)
[2024-01-09] MEDS: Metoclopramide 10 MG/10 ML UDC GT ×3 (08:18→21:10)
[2024-01-09] MEDS: PLECANATIDE 3 MG TABLET GT (08:20)
[2024-01-09] MEDS: MONTELUKAST 4 MG PO (10:29)
[2024-01-09] MEDS: Lactobacillis Acidophilus 2 CAP GT (10:29)
[2024-01-09] MEDS: Remdesivir 100 MG in 0.9% Normal Saline (250mL Bag) 230 ML 125 MG IV (10:30)
[2024-01-09] MEDS: dexAMETHasone 10 MG/ML Vial 6 MG IV (10:30)
[2024-01-09] MEDS: ESOMEPRAZOLE MAGNESIUM 40 MG SUSPDR.PKT GT ×2 (10:30→21:10)
[2024-01-09] MEDS: Enoxaparin 40 MG/0.4 ML Syringe SC (10:31)
--- NOTE | 2024-01-09 13:15 | PN.CC_ITS ---
Objective Data Objective Data Vital Signs: Vital Signs Last response 3 Temperature 36.6 C 01/09/24 08:00 Temperature Source Temporal 01/09/24 08:00 Pulse Rate 91 01/09/24 11:00 Pulse Strength Normal (2+) 01/08/24 21:03 Respiratory Rate 19 H 01/09/24 11:00 Respiratory Effort Mechanically Ventilated 01/09/24 08:00 Respiratory Depth Normal 01/09/24 08:00 Respiratory Pattern Normal 01/09/24 09:32 Blood Pressure 122/82 H 01/09/24 11:00 Blood Pressure Mean 95 01/09/24 11:00 Blood Pressure Source Monitor 01/09/24 11:00 Blood Pressure Position Semi-Fowlers 01/09/24 11:00 Blood Pressure Location Left Forearm 01/09/24 11:00 Pulse Ox 97 01/09/24 11:00 Oxygen Delivery Method Mechanical Ventilator 01/09/24 11:00 Oxygen Flow Rate (L/min) 4 01/09/24 11:00 Fraction of Inspired Oxygen (FIO2) 35 01/09/24 10:00 I&O: I&O Last 24 Hours 3 01/08/24 01/09/24 01/09/24 23:59 11:59 23:59 Intake Total 1529.33 / 3072.80 750 / 1585.5 835.5 / 1585.5 Output Total 400 / 650 275 / 275 Balance 1129.33 / 2422.80 475 / 1310.5 835.5 / 1310.5 I&O: Total Stay 3 01/04/24 07:10 thru 01/09/24 12:26 Intake Total 07803.74 Output Total 3595 Balance 8350.74 Current Meds Ordered / Administered: Current meds ordered / Administered 3 Generic Name Dose Route Start Last Admin Trade Name Freq PRN Reason Stop Dose Admin Acetaminophen 650 mg 01/05/24 01:43 01/09/24 02:29 Acetaminophen 325 Mg Tablet GT 650 mg Q4H PRN PRN Administration Pain 1-10 Or Fever>100.7 Al Hydroxide/Mg Hydroxide 2.5 ml 01/04/24 12:58 Mag Hydrox/Al Hydrox/Simeth 30 Ml Udc PO 0000,0600,1200,1800 PRN ANTACID Albuterol Sulfate 2.5 mg 01/04/24 11:54 Albuterol 2.5 Mg/3 Ml Vial.Neb. INHALATION Q2H PRN PRN SOB &/OR WHEEZING Baclofen 20 mg 01/04/24 18:00 01/09/24 12:27 Baclofen 10 Mg Tablet GT 20 mg Q6H JOYCE Administration Cetirizine HCl 10 mg 01/04/24 16:00 01/08/24 16:12 Cetirizine Hcl 1 Mg/Ml Solution GT 10 mg 1600 JOYCE Administration Dexamethasone Sodium Phosphate 6 mg 01/07/24 10:25 01/09/24 10:30 Dexamethasone 10 Mg/Ml Vial IV 6 mg DAILY JOYCE Administration Doxazosin Mesylate 2 mg 01/05/24 08:30 01/09/24 08:17 Doxazosin 1 Mg Tablet GT 2 mg 0830 JOYCE Administration Enoxaparin Sodium 40 mg 01/05/24 10:00 01/09/24 10:31 Enoxaparin 40 Mg/0.4 Ml Syringe SC 40 mg DAILY JOYCE Administration Esomeprazole Magnesium 40 mg 01/04/24 22:00 01/09/24 10:30 Esomeprazole Magnesium 40 Mg Suspdr.Pkt GT 40 mg BID JOYCE Administration Gabapentin 500 mg 01/04/24 18:00 01/09/24 12:28 Gabapentin 250 Mg/5 Ml Solution GT 500 mg 0000,0600,1200,1800 JOYCE Administration Guaifenesin 10 ml 01/04/24 12:53 Guaifenesin 10 Ml Udc (200mg/10ml) GT 0830 PRN COUGH/CONGESTION Enteral Nutritional Formula 1,000 mls @ 60 mls/hr 01/04/24 14:00 01/09/24 12:27 Jevity 1.5 GT Not Given .[id number] JOYCE Sodium Chloride 500 mls @ 15 mls/hr 01/04/24 14:24 IV .[id number] PRN Saline Flush Sodium Chloride 500 mls @ 15 mls/hr 01/04/24 14:24 IV .[id number] PRN Additional IVPB Infusion Piperacillin Sod/Tazobactam 50 mls @ 12.5 mls/hr 01/05/24 02:10 01/09/24 09:25 Sod 3.375 gm/ Sodium Chloride IV Infused Q8 JOYCE Infusion Dexmedetomidine HCl 400 mcg/ 100 mls @ 10.35 mls/hr 01/07/24 07:45 01/09/24 08:06 Sodium Chloride CONT INF Not Given .Q9H40M JOYCE Protocol 0.5 MCG/KG/HR Norepinephrine Bitartrate 8 mg 250 mls @ 9.375 mls/hr 01/07/24 09:50 01/08/24 16:00 / Sodium Chloride CONT INF 0 mcg/min .[id number] JOYCE 0 mls/hr Titration Protocol 5 MCG/MIN Remdesivir 100 mg/ Sodium 250 mls @ 125 mls/hr 01/08/24 10:00 01/09/24 10:30 Chloride IV 01/11/24 11:59 125 mls/hr DAILY JOYCE Administration Protocol Ketorolac Tromethamine 15 mg 01/05/24 01:42 01/07/24 06:46 Ketorolac 15 Mg/Ml Vial IV 01/10/24 01:43 15 mg Q8H PRN PRN Administration Pain 1-10, fever breakthrough Lorazepam 2 mg 01/04/24 11:54 01/08/24 16:16 Lorazepam 2 Mg/Ml Bottle GT 2 mg DAILY PRN Administration agitation Metoclopramide HCl 10 mg 01/04/24 16:00 01/09/24 08:18 Metoclopramide 10 Mg/10 Ml Udc GT 10 mg 0830,1600,2100 JOYCE Administration Montelukast Sodium 4 mg 01/05/24 10:00 01/09/24 10:29 Montelukast Sodium 4 Mg Gran.Pack PO 4 mg DAILY JOYCE Administration Ondansetron HCl 4 mg 01/04/24 11:54 01/05/24 00:05 Ondansetron 4 Mg/2 Ml Vial IV 4 mg Q8H PRN PRN Administration NAUSEA/VOMITING Phenobarbital 60 mg 01/04/24 21:00 01/09/24 08:17 Phenobarbital 20 Mg/5 Ml Udc GT 60 mg 0830,2100 JOYCE Administration Potassium Chloride 20 meq 01/08/24 08:00 01/09/24 08:17 Potassium Chloride Oral Tablet 20 Meq GT 20 meq BIDCM JOYCE Administration Sodium Chloride 10 - 40 ml 01/04/24 14:24 01/09/24 05:34 0.9% Saline Lock 10 Ml Syringe IV 10 ml UD PRN Administration SALINE FLUSH Lab / Micro Data 01/09/24 05:35 01/09/24 05:35 Labs: Laboratory Results - last 24 hr 11/17/24 05:35: WBC 5.5, RBC 3.15 L, Hgb 8.9 L, Hct 27.7 L, MCV 87.9, MCH 28.3, MCHC 32.1, RDW Std Deviation 48.7 H, RDW Coeff of [place] 15.4 H, Plt Count 161, MPV 9.9, Immature Gran % (Auto) 0.200, Neut % (Auto) 42.0 L, Lymph % (Auto) 44.5 H, [place] % (Auto) 10.5 H, Eos % (Auto) 2.4, Baso % (Auto) 0.4, Absolute Neuts (auto) 2.3, Absolute Lymphs (auto) 2.45, Nucleated RBC % 0, Sodium 139, Potassium 3.5, Chloride 110 H, Carbon Dioxide 24.0, Anion Gap 5, BUN 13, Creatinine 0.33 L, Estim Creat Clear Calc 260.67, Est GFR (MDRD) Af Amer 375, Est GFR (MDRD) Non-Af 310, BUN/Creatinine Ratio 39.0 H, Glucose 91, Calcium 7.8 L, Phosphorus 3.7, Magnesium 2.1, Total Bilirubin 0.30, AST 16, ALT 20, Alkaline Phosphatase 109, B-Natriuretic Peptide 33.2, Total Protein 7.0, Albumin 2.7 L, Globulin 4.3 H, A lbumin/Globulin Ratio 0.6 L Micro: Microbiology 01/04/24 12:08 Blood Culture (Wb) - Left Hand Blood Culture - Final No growth in 5 days. 01/07/24 13:30 Blood Culture (Wb) - Chest Blood Culture - Preliminary No growth in 48 hours. 01/04/24 07:45 Blood Culture (Wb) - Port Blood Culture - Final No growth in 5 days. Rhythm Strip Rhythm Strip: Sinus Tach Rate: 109 Ectopy: None Imaging Radiology Impression Chest X-Ray 01/09/24 05:00 IMPRESSION: No evidence of acute cardiopulmonary disease. Electronically Signed: Gerald Traore DO at 6:11 EST , Assessment and Plan . Assessment and plan: HPI 43 yo obese man w/ CP, spastic quadriparesis, chronic respiratory failure w/ tracheostomy, admitted w/ ARF requiring MV support. Co-V PCR is (+) CTA 01/06 w/o PTED, but bilateral infiltrate/ATX present He is receiving dexamethasone, anti-virals, empiric anti-bacterials MV reviewed and adjusted at BS MV 9-10 LPM, poor synchrony w/ VCV He has been on and off Precedex and NE infusions I/O (+)(+) 01/09/24 Chart and data reviewed d/w staff Now supported on home vent Clinically stable overall No changes required at this time PHYSICAL EXAM GEN NAD VS as above HEENT o/p clear NECK obese, midline tube COR RRR CHEST coarse, diminished ABD soft, obese, PEG EXT minimal edema SKIN w/d JAIR severe spasticity ASSESSMENT 1. ARF / CRF 2. Tracheostomy in place / chronic MV support 3. Pulmonary infiltrates 4. Co-V (+) 5. CP w/ severe spasticity 6. Obesity TREATMENT PLAN -MV support -anxiolysis as needed -IV ABX - defer to ID -receiving dexamethasone and anti-virals -sq LMWH -sq insulin -enteral nutrition -BNP is low -the entirety of this encounter performed using telemedicine
[2024-01-09] MEDS: CETIRIZINE HCL 1 MG/ML 10 MG GT (16:15)
[2024-01-09] MEDS: Potassium Chloride Oral Soln 20 MEQ/15 ML UDC GT (16:15)
[2024-01-09] MEDS: Jevity 1.5 1,000 ML 60 ML GT (18:13)
--- NOTE | 2024-01-09 19:47 | CPS ---
Patient on Home vent with 4L oxygen bled in
--- NOTE | 2024-01-09 19:49 | CPS ---
Patient on home vent with 4L oxygen bled in
--- NOTE | 2024-01-09 23:25 | CPS ---
this [employer] changer inner cannula, inline suction and HME
[2024-01-10] VITALS (15 sets, daily range): BP systolic 94–152; BP diastolic 54–102; PULSE 68–91; RESP 14–19; TEMP 36.3–37; O2SAT 91–98; BMI 35.4
[2024-01-10 03:36] LABS: Absolute Lymphocyte Count 2.49 X10^3/uL (0.83-4.51); Absolute Neutrophil Count 2.8 X10^3/uL (2.0-7.7); Basophil# 0.01 X10^3/uL; Basophil% 0.2 % (0-1); Eosinophil# 0.12 X10^3/uL; Eosinophils% 1.9 % (0-5); Hematocrit 28.2 % (40-54); Lymphocyte # 2.49 X10^3/ul (0.83-4.51); Lymphocyte % 39.6 % (19-41); Mean Corp Hgb Conc 31.9 g/dL (32-36); Mean Corpuscular Volume 87.6 fL (80-94); Mean Platelet Vol. 9.7 fl (6.2-12.0); Monocyte# 0.79 X10^3/uL; Monocyte% 12.6 % (0-10); NRBC Flagged by Analyzer 0 % (0-5); Neutrophil # 2.84 X10^3/uL (2.7-7.7); Neutrophil % 45.2 % (47-70); Platelet Count 164 K/mm3 (150-450); RBC Distribution Width CV 15.2 % (11.6-14.6); RBC Distribution Width SD 48.9 fl (35.1-43.9); Red Blood Count 3.22 M/mm3 (4.6-6.2); White Blood Count 6.3 K/mm3 (4.4-11.0)
[2024-01-10 03:56] LABS: Phosphorus 4.1 mg/dL (2.5-4.9)
[2024-01-10 03:57] LABS: ALB/GLOB Ratio 0.6 RATIO (0.9-2.4); AST(SGOT) 20 U/L (15-37); Alanine Aminotransfer ALT/SGPT 24 U/L (16-61); Albumin, Serum 2.8 g/dL (3.2-5.0); Alkaline Phosphatase 100 U/L (45-117); Anion Gap 5 (5-15); BUN 12 mg/dL (7-18); BUN/Creat Ratio 44.3 RATIO (10-20); Calcium,Total 8.1 mg/dL (8.5-10.1); Chloride 108 mmol/L (98-107); Creatinine, Serum 0.27 mg/dL (0.70-1.30); EST Glomerular Filtration Rate 393 mL/min (>60); Est Glom Filt Rate - Afr Amer 476 mL/min (>60); Estimated Creatinine Clearance 319.81 ml/min; Globulin 4.4 g/dL (2.2-4.2); Glucose 82 mg/dL (74-106); Potassium 3.4 mmol/L (3.5-5.1); Protein, Total 7.2 g/dL (6.4-8.2); Sodium Level 140 mmol/L (136-145)
[2024-01-10] MEDS: Piperacil/Tazobactam 3.375 GM in 0.9% Normal Saline (50mL MB+) 50 ML IV ×2 (05:28→12:59)
[2024-01-10] MEDS: 0.9% Saline Lock 10 ML Syringe IV ×2 (05:28→16:08)
[2024-01-10] MEDS: Baclofen 10 MG Tablet 20 MG GT ×2 (05:28→12:57)
[2024-01-10] MEDS: GABAPENTIN 250 MG/5 ML SOLUTION 500 MG GT ×2 (05:28→12:57)
--- NOTE | 2024-01-10 08:04 | CPS ---
patient is on home vent, 95%, HR 74, RR18
--- NOTE | 2024-01-10 08:18 | PN.HOSP_ITS ---
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/04/24) Objective Data Objective Data Vital Signs: Vital Signs Temp Pulse Resp BP Pulse Ox O2 Del Method O2 Flow Rate 98.6 F 76 17 114/73 96 Mechanical Ventilator 4 01/10/24 04:00 01/10/24 07:00 01/10/24 07:00 01/10/24 07:00 01/10/24 07:00 01/10/24 07:00 01/10/24 07:00 FiO2 35 01/09/24 10:00 Oxygen Flow Rate (L/min) 4 Oxygen Delivery Method Mechanical Ventilator Weight: 82 kg Body Mass Index (BMI) 35.4 Intake & Output: Intake and Output for Last 24 Hours 01/08/24 01/09/24 01/10/24 23:59 23:59 23:59 Intake Total 2772.80 / 3072.80 2667.0 / 2817.0 350 / 350 Output Total 550 / 650 975 / 975 Balance 2222.80 / 2422.80 1692.0 / 1842.0 350 / 350 Lab / Micro Data 01/10/24 03:30 01/10/24 03:30 Labs: Laboratory Results - last 24 hr 01/10/24 03:30: WBC 6.3, RBC 3.22 L, Hgb 9.0 L, Hct 28.2 L, MCV 87.6, MCH 28.0, MCHC 31.9 L, RDW Std Deviation 48.9 H, RDW Coeff of Emilee 15.2 H, Plt Count 164, MPV 9.7, Immature Gran % (Auto) 0.500, Neut % (Auto) 45.2 L, Lymph % (Auto) 39.6, [place] % (Auto) 12.6 H, Eos % (Auto) 1.9, Baso % (Auto) 0.2, Absolute Neuts (auto) 2.8, Absolute Lymphs (auto) 2.49, Nucleated RBC % 0, Sodium 140, P otassium 3.4 L, Chloride 108 H, Carbon Dioxide 27.0, Anion Gap 5, BUN 12, C reatinine 0.27 L, Estim Creat Clear Calc 319.81, Est GFR (MDRD) Af Amer 476, Est GFR (MDRD) Non-Af 393, BUN/Creatinine Ratio 44.3 H, Glucose 82, Calcium 8.1 L, Phosphorus 4.1, Magnesium 2.0, Total Bilirubin 0.30, AST 20, ALT 24, Alkaline Phosphatase 100, Total Protein 7.2, Albumin 2.8 L, Globulin 4.4 H, A lbumin/Globulin Ratio 0.6 L Micro: Microbiology 01/04/24 12:08 Blood Culture (Wb) - Left Hand Blood Culture - Final No growth in 5 days. 01/07/24 13:30 Blood Culture (Wb) - Chest Blood Culture - Preliminary No growth in 48 hours. 01/04/24 07:45 Blood Culture (Wb) - Port Blood Culture - Final No growth in 5 days. 01/07/24 09:12 Mucosa - Nasopharyngeal SARS-CoV-2, Influenza & RSV (PCR) - Final SARS-CoV-2 (COVID 19 PCR) 01/04/24 21:27 Sputum, Induced/Lukens Gram Stain - Final 01/04/24 21:27 Sputum, Induced/Lukens Respiratory Culture - Final Pseudomonas aeruginosa Proteus mirabilis Streptococcus agalactiae (B) 01/04/24 08:05 Urine Catheter - Catheter Urine Culture - Final Culture exhibits no growth. 01/05/24 02:17 Nasal Secretion MRSA (PCR) - Final 01/04/24 14:33 Mucosa - Nose Respiratory Panel (PCR) - Final 01/04/24 08:05 Urine Catheter - Catheter Legionella Antigen - Final 01/04/24 08:05 Urine Catheter - Catheter Streptococcus pneumoniae Antigen (M - Final 01/04/24 08:00 Mucosa - Nasopharyngeal SARS-CoV-2, Influenza & RSV (PCR) - Final Rhythm Strip Rhythm Strip: Sinus Tach Rate: 109 Ectopy: None Assessment & Plan Assessment/Plan (1) COVID-19: PLAN: Plan # Septic shock secondary to bacterial bronchitis and COVID-19 -Patient admitted with acute febrile illness with temperature of 101.4 and negative imaging, initially started on broad-spectrum antibiotics and IV fluid resuscitation per sepsis protocol the patient ultimately required norepinephrine -Patient found to have COVID-19 but also had tracheal aspirate that was positive for Pseudomonas aeruginosa, Proteus mirabilis, Streptococcus agalactiae -Patient has been on Zosyn, ID is consulted -For COVID patient on remdesivir and dexamethasone # Chronic respiratory failure with tracheostomy/ventilatory dependent/cerebral palsy/spastic quadriplegia/colostomy -Patient continued on home vent settings -Supportive care -Continued patient's gabapentin, Ativan, baclofen for his spastic quadriplegia # Seizure disorder -Patient's phenobarb, gabapentin, Ativan continued # Chronic dysphagia status post PEG tube -Currently on Jevity, continue home regimen #GERD -Continue PPI #Hypokalemia -Replace -Repeat in the AM #DVT ppx: Lovenox subcu Lucia Dillard MD Time spent in the patient's overall evaluation, decision-making process, review of diagnostic data, adjustment of management, discussion with other providers, nursing and ancillary staff involved in patient's care documentation, 36 Minutes Charges/Coding Visit Charges Inpatient E&M: 56512 Subs Hosp L2
--- NOTE | 2024-01-10 08:38 | PN.CC_ITS ---
Assessment & Plan Assessment/Plan (1) Fever of unknown origin (FUO): PLAN: Plan RECOMMENDATIONS: 1. Continue antibiotics per ID recommendations. 2. Continue Decadron to complete 10 days of therapy. Continue remdesivir as ordered. 3. Continue ventilatory support per baseline regimen. 4. Continue nutritional support via tube feeding. 5. The patient appears stable from a clinical perspective for discharge home. IMPRESSIONS: 1. Acute on chronic hypoxemic respiratory failure The patient initially presented to the hospital with increasing fussiness along with mild tachycardia and low-grade fever. CT chest/abdomen/pelvis was unrevealing. However, the patient sputum was positive for Pseudomonas, Proteus and group B streptococcus. In addition, the patient tested positive for COVID- 19. Therefore, he has been maintained on antimicrobials, Decadron and remdesivir. Overall, the patient has improved clinically and is at his baseline from a respiratory perspective, on his home ventilator. 2. Cerebral palsy with spastic quadriplegia/seizure disorder/GERD/anemia/history of candidal esophagitis Complicates care, management, recovery and prognosis. Continue home medications as indicated. This note was generated with [email or web address] dictation software. It may contain incorrect words, spelling, and punctuation that were not noted in checking the note before signing. Subjective Subjective The patient was seen and examined at the bedside this morning. Events from the last 24 hours have been reviewed. The patient is currently afebrile, hemodynamically stable and maintaining appropriate oxygen saturations on his baseline home vent. The patient has been weaned from vasopressor support over the weekend and Precedex. The patient remains on empiric antibiotics, remdesivir and Decadron. White blood cell count remains normal. Potassium is low at 3.4 with a normal creatinine. Objective Data Objective Data The patient's most recent lab work, culture data and imaging studies have all been personally reviewed. COVID, influenza and RSV PCR's were negative. Strep and urine Legionella antigens were negative. Blood cultures have not demonstrated any growth to date. Preliminary sputum culture is demonstrating growth Pseudomonas, Proteus and group B streptococcus. COVID PCR was positive on January 06. Vital Signs: Vital Signs Temp Pulse Resp BP Pulse Ox O2 Del Method O2 Flow Rate 98.6 F 76 17 114/73 96 Mechanical Ventilator 4 01/10/24 04:00 01/10/24 07:00 01/10/24 07:00 01/10/24 07:00 01/10/24 07:00 01/10/24 07:00 01/10/24 07:00 FiO2 35 01/09/24 10:00 Oxygen Flow Rate (L/min) 4 Oxygen Delivery Method Mechanical Ventilator Weight: 180 lb 12.465 oz Body Mass Index (BMI) 35.4 Intake & Output: Intake and Output for Last 24 Hours 01/08/24 01/09/24 01/10/24 23:59 23:59 23:59 Intake Total 2772.80 / 3072.80 2667.0 / 2817.0 350 / 350 Output Total 550 / 650 975 / 975 Balance 2222.80 / 2422.80 1692.0 / 1842.0 350 / 350 Lab / Micro Data Attestation: I reviewed the patient's lab results. 01/10/24 03:30 01/10/24 03:30 Labs: Laboratory Results - last 24 hr 01/10/24 03:30: WBC 6.3, RBC 3.22 L, Hgb 9.0 L, Hct 28.2 L, MCV 87.6, MCH 28.0, MCHC 31.9 L, RDW Std Deviation 48.9 H, RDW Coeff of Emilee 15.2 H, Plt Count 164, MPV 9.7, Immature Gran % (Auto) 0.500, Neut % (Auto) 45.2 L, Lymph % (Auto) 39.6, [place] % (Auto) 12.6 H, Eos % (Auto) 1.9, Baso % (Auto) 0.2, Absolute Neuts (auto) 2.8, Absolute Lymphs (auto) 2.49, Nucleated RBC % 0, Sodium 140, P otassium 3.4 L, Chloride 108 H, Carbon Dioxide 27.0, Anion Gap 5, BUN 12, C reatinine 0.27 L, Estim Creat Clear Calc 319.81, Est GFR (MDRD) Af Amer 476, Est GFR (MDRD) Non-Af 393, BUN/Creatinine Ratio 44.3 H, Glucose 82, Calcium 8.1 L, Phosphorus 4.1, Magnesium 2.0, Total Bilirubin 0.30, AST 20, ALT 24, Alkaline Phosphatase 100, Total Protein 7.2, Albumin 2.8 L, Globulin 4.4 H, A lbumin/Globulin Ratio 0.6 L Micro: Microbiology 01/04/24 12:08 Blood Culture (Wb) - Left Hand Blood Culture - Final No growth in 5 days. 01/07/24 13:30 Blood Culture (Wb) - Chest Blood Culture - Preliminary No growth in 48 hours. 01/04/24 07:45 Blood Culture (Wb) - Port Blood Culture - Final No growth in 5 days. 01/07/24 09:12 Mucosa - Nasopharyngeal SARS-CoV-2, Influenza & RSV (PCR) - Final SARS-CoV-2 (COVID 19 PCR) 01/04/24 21:27 Sputum, Induced/Lukens Gram Stain - Final 01/04/24 21:27 Sputum, Induced/Lukens Respiratory Culture - Final Pseudomonas aeruginosa Proteus mirabilis Streptococcus agalactiae (B) 01/04/24 08:05 Urine Catheter - Catheter Urine Culture - Final Culture exhibits no growth. 01/05/24 02:17 Nasal Secretion MRSA (PCR) - Final 01/04/24 14:33 Mucosa - Nose Respiratory Panel (PCR) - Final 01/04/24 08:05 Urine Catheter - Catheter Legionella Antigen - Final 01/04/24 08:05 Urine Catheter - Catheter Streptococcus pneumoniae Antigen (M - Final 01/04/24 08:00 Mucosa - Nasopharyngeal SARS-CoV-2, Influenza & RSV (PCR) - Final Radiography Diagnostic Testing: Radiology Impression Chest X-Ray 01/07/24 07:24 IMPRESSION: Limited inspiration. Findings suggestive of vascular congestion mild CHF. Cardiomegaly. Electronically Signed: Matti Greer MD at 7:53 EST , Rhythm Strip Rhythm Strip: Sinus Tach Rate: 109 Ectopy: None Physical Exam Const alert and no apparent distress Constitutional Narrative: Nonverbal at baseline. Mother remains at the bedside. General Appearance: ill appearing Positive for chronically HEENT head/scalp atraumatic and moist oral mucous membranes Eyes conjunctivae normal and no scleral icterus Neck supple Neck Narrative: Tracheostomy site intact. Chest inspection of chest normal Resp normal respiratory effort Auscultation: diminished lung sounds; Negative for rales, rhonchi or wheezes Cardio regular rate, regular rhythm, S1 normal heart sound and S2 normal heart sound GI normal to inspection, nondistended, normoactive bowel sounds Inspection: GI tube present Extremity Extremity Narrative: Baseline contractures noted. General Extremity: Negative for clubbing or edema Skin no rashes or lesions noted Neuro Neuro Narrative: Appears to be at his baseline from a neurologic perspective. Psych Mood & Affect: flat affect Charges/Coding Visit Charges Inpatient E&M: 72540 Subs Hosp L3
[2024-01-10] MEDS: Potassium Chloride Oral Soln 20 MEQ/15 ML UDC GT ×3 (08:45→16:00)
[2024-01-10] MEDS: PLECANATIDE 3 MG TABLET GT (08:46)
[2024-01-10] MEDS: Phenobarbital 20 MG/5 ML UDC 60 MG GT (08:46)
[2024-01-10] MEDS: Metoclopramide 10 MG/10 ML UDC GT ×2 (08:46→16:00)
[2024-01-10] MEDS: Doxazosin 1 MG Tablet 2 MG GT (08:46)
[2024-01-10] MEDS: Lactobacillis Acidophilus 2 CAP GT (10:31)
[2024-01-10] MEDS: Enoxaparin 40 MG/0.4 ML Syringe SC (10:31)
[2024-01-10] MEDS: dexAMETHasone 10 MG/ML Vial 6 MG IV (10:32)
[2024-01-10] MEDS: ESOMEPRAZOLE MAGNESIUM 40 MG SUSPDR.PKT GT (10:32)
[2024-01-10] MEDS: MONTELUKAST 4 MG PO (10:34)
[2024-01-10] MEDS: Remdesivir 100 MG in 0.9% Normal Saline (250mL Bag) 230 ML 125 MG IV (10:45)
--- NOTE | 2024-01-10 13:35 | PCM.PN.ID ---
Physical Exam Narrative Much improved, no fever, mother at bedside Const no apparent distress Resp normal air movement and clear to auscultation bilaterally Cardio regular rate and regular rhythm GI soft to palpation, non-tender and non-distended Skin no rashes or lesions noted ID ID: Route of nutrition/ use of supplements: [] Nutritional Intake: [] IV Site: [] Augustin Catheter: [] Assessment & Plan Assessment/Plan (1) Tracheostomy dependent: (2) Pneumonia: PLAN: Sputum cx with PsA, proteus, GBS. Dx with septic shock and covid (+). On zosyn, dex, remdesivir. Dramatically improved, day 7 of zosyn, ok for discharge off of abx. Will follow prn, d/w nursing (3) Cerebral palsy: QUALIFIERS: Cerebral palsy type: spastic quadriplegic Qualified Code(s): G80.0 - Spastic quadriplegic cerebral palsy
--- NOTE | 2024-01-10 14:10 | CASEMGMT ---
RE GUADALUPE spoke with pt mom, who stated pt will need transportation home. Pt mom stated would like to resume care with [facility], gave RE GUADALUPE phone number for Dayo Summons [phone]. RE GUADALUPE called and spoke with Dayo at [facility], able to accept pt back.
--- NOTE | 2024-01-10 14:34 | CASEMGMT ---
RE GUADALUPE called [facility] to schedule transport, per Torey will pick pt up at 4:30 pm. Notified hospitalist and RN. RE GUADALUPE called [facility] agency to notify of DC.
--- NOTE | 2024-01-10 14:47 | DCINST_ITS ---
Discharge Instructions Diet Discharge Diet: - (Continue home tube feedings) Activity Discharge Activity: Return to Normal Activity Follow Up Care Test Results: Test results from this visit will be discussed in further detail at your follow- up appointment, if applicable. Discharge Plan Admission Admit Date/Time: 01/04/24 10:45 Primary Reason for Your Visit: COVID and pneumonia Attending Provider: Lucia Dillard Primary Care Provider: Timmy Conn Consulting Providers: Krishna Siddiqui; Niranjan Hale; Jacek Monsalve; Yovanny Moreira; Michael Darden; Kalpesh Mayes; Mckinley Tristan; Cari Cavazos; Zackary Castro; Jace Shipley; Gris Hewitt; Patrice Langley; Jovi Christianson; Goran Rose; Luis Mohr; Chase Mcbride; Tejinder Landin; Flaquito Rider; Vito Bright; Luther Huggins; Roberto Hathaway; Michael Posadas Instructions Patient Instructions: Caring for Someone Who Has COVID-19 Additional Instructions / Restrictions: DISCHARGE INSTRUCTIONS PLEASE READ *Please take this with you to your next doctors appointment* -You will need to take dexamethasone for 6 more days -Would recommend lab work (BMP) to check your potassium in 2 to 3 days through your primary care physician's office. Please call their office upon discharge to obtain order for lab work. -Please call your primary care provider's office upon discharge to schedule a hospital follow up within 1 week. -For any concerning signs or symptoms please call 911 or proceed to the nearest emergency department Discharge Orders/Prescriptions Prescriptions: New dexamethasone 6 mg tablet 6 mg feeding tube DAILY 6 Days Qty: 6 0RF Continued albuterol sulfate 2.5 mg /3 mL (0.083 %) solution for nebulization 2.5 mg inhalation Q4H PRN (Reason: Sob &/Or Wheezing) cetirizine 1 mg/mL solution 10 mg feeding tube 1600 Qty: 480 11RF guaifenesin 200 mg/5 mL liquid 200 mg feeding tube 0830 PRN (Reason: COUGH/CONGESTION) Qty: 118 11RF Patient Comments: mom states giving 0.5ml to help with mucus plugs at 9am montelukast [Singulair] 4 mg granules in packet 4 mg PO DAILY Qty: 90 3RF Patient Comments: NEW RX THAT HAS NOT BEEN STARTED metoclopramide HCl 5 mg/5 mL solution 10 mg feeding tube 0830,1600,2100 phenobarbital 20 MG/5 ML elixir 60 mg G-tube 0830,2100 Cough Assist 1 dose .Route .MEDSUPPLY Rx Instructions: Inspiratory and Expiratory times of 20-40 seconds with a 1-2 second pause. oxygen concentrator 1 dose .Route .MEDSUPPLY Rx Instructions: As directed lactose-reduced food with fibr 0.06 gram-1.2 kcal/mL liquid 1,000 ml G-tube DAILY Patient Comments: PER PT HOME MED LIST: JEVITY 1.2 BENNY/ML 4.5-5 CARTONS PER DAY. APPROXIMATELY 1 LITER PER DAY. 55ML/HOUR TO 65ML DURING THE DAY. SLOW THIS DOWN TO 45 ML/HOUR AT NIGHT. gabapentin 250 MG/5 ML solution 500 mg G-tube 0000,0600,1200,1800 Patient Comments: PER PT HOME MED LIST: GABAPENTIN DOSING -IF MO'S HEART RATE IS LOW I DON'T ALWAYS GIVE THE WHOLE 10ML GABAPENTIN DOSE MY GUIDES ARE: PULSE <50: I MIGHT WAIT 1 HOUR FOR HIM TO BE MORE AWAKE. GIVE 4 ML PULSE IN THE 50'S: GIVE 5ML OR 6 ML PULSE IN THE 60'S: GIVE 6ML TO 7ML PULSE 69>: GIVE THE WHOLE 10ML plecanatide 3 mg tablet 3 mg GT 0830 Patient Comments: mom states has been given qod doxazosin 2 mg tablet 2 mg GT 0830 cholecalciferol (vitamin D3) 10 mcg/mL (400 unit/mL) drops 15 mcg feeding tube 0830 alum-mag hydroxide-simeth 200-200-20 mg/5 mL suspension 5 ml PO 0000,0600,1200,1800 PRN (Reason: ANTACID) acetaminophen 650 mg/20.3 mL suspension 650 mg feeding tube 0000,0600,1200,1800 PRN (Reason: PAIN ) baclofen 20 mg tablet 20 mg feeding tube Q6H Patient Comments: gets compounded suspension from [facility]. ondansetron 4 mg tablet,disintegrating 4 mg PO Q8H PRN (Reason: NAUSEA/VOMITING) Qty: 30 0RF ipratropium-albuterol 0.5 mg-3 mg(2.5 mg base)/3 mL solution for nebulization 3 ml inhalation Q4H PRN (Reason: SOB &/OR WHEEZING) esomeprazole magnesium [Nexium Packet] [address] for susp in packet 40 mg G-tube BID lorazepam [Lorazepam Intensol] 2 mg/mL concentrate 2 mg feeding tube DAILY PRN (Reason: agitation) Lactobacillus acidophilus 500 million cell capsule See Rx Instructions .ROUTE DAILY Qty: 60 3RF Rx Instructions: 2 caps by Gtube daily; Referrals / Follow Up: Timmy Conn MD [Primary Care Provider] - Within 1 Week Disposition Disposition (needs filled in before D/C Order can be placed): Home Health Service
--- NOTE | 2024-01-10 14:57 | PCM.DC.SUM ---
Providers Date of Admission: 01/04/24 Date of Discharge: 01/10/24 Primary Care Physician: Dr. Timmy Conn MD Consultations 01/04/24 13:32 Consult: Alterations Expert / Pulmonary Medicine Routine Consulting Provider: Intensivists/Pulmonary Med Reason for Consult: sepsis EMERGENT Consult: No Notified: Yes Date Notified: 01/04/24 Time Notified: 14:40 Method of Notification: Verbal 01/06/24 07:52 Consult: Infectious Disease Routine Consulting Provider: Roberto Hathaway Reason for Consult: Positive respiratory culture EMERGENT Consult: No Notified: Yes Date Notified: 01/06/24 Time Notified: 07:52 Method of Notification: Text Reason For Visit: ACUTE FEBRILE ILLNESS Diagnosis Discharge Diagnosis (1) Tracheostomy dependent: Status: Acute Code(s): Z93.0 - Tracheostomy status (2) Pneumonia: Status: Acute Code(s): J18.9 - Pneumonia, unspecified organism (3) Cerebral palsy: Status: Chronic Code(s): G80.9 - Cerebral palsy, unspecified Qualifiers: Cerebral palsy type: spastic quadriplegic Qualified Code(s): G80.0 - Spastic quadriplegic cerebral palsy Plan # Septic shock secondary to bacterial bronchitis and COVID-19 # Chronic respiratory failure with tracheostomy/ventilatory dependent/cerebral palsy/spastic quadriplegia/colostomy # Seizure disorder # Chronic dysphagia status post PEG tube #GERD #Hypokalemia Medications at Discharge Home Medications phenobarbital 20 mg/5 mL (4 mg/mL) oral elixir 60 mg G-tube 0830,2100 SEIZURES 02/19/17 metoclopramide HCl 5 mg/5 mL oral solution 10 mg feeding tube 0830,1600,2100 STOMACH 09/16/18 Cough Assist 1 dose .Route .MEDSUPPLY assist in clearing secretions 12/25/18 oxygen concentrator 1 dose .Route .MEDSUPPLY second unit, 4 LPM cont all modalities 12/25/18 gabapentin 250 mg/5 mL oral solution 500 mg G-tube 0000,0600,1200,1800 SEIZURES 09/26/19 albuterol sulfate 2.5 mg/3 mL (0.083 %) solution for nebulization 2.5 mg inhalation Q4H PRN Sob &/Or Wheezing 11/27/20 lactose-reduced food with fiber 0.06 gram-1.2 kcal/mL oral liquid 1,000 ml G-tube DAILY NUTRITION 11/27/20 plecanatide 3 mg tablet 3 mg G-tube 0830 BOWELS 11/27/20 doxazosin 2 mg tablet 2 mg PO 0830 BLOOD PRESSURE 11/30/21 cholecalciferol (vitamin D3) 10 mcg/mL (400 unit/mL) oral drops 15 mcg feeding tube 0830 SUPPLEMENT 03/24/22 acetaminophen 650 mg/20.3 mL oral suspension 650 mg feeding tube 0000,0600,1200,1800 PRN PAIN 10/24/22 aluminum-mag hydroxide-simethicone 200 mg-200 mg-20 mg/5 mL oral susp 5 ml PO 0000,0600,1200,1800 PRN ANTACID 10/24/22 baclofen 20 mg tablet 20 mg feeding tube Q6H MUSCLE SPASMS 12/10/22 ondansetron 4 mg disintegrating tablet 4 mg PO Q8H PRN NAUSEA/VOMITING #30 tabs 12/13/22 esomeprazole magnesium 40 mg granules delayed release for susp (Nexium Packet) 40 mg G-tube BID ACID REFLUX 03/23/23 ipratropium 0.5 mg-albuterol 3 mg (2.5 mg base)/3 mL nebulization soln 3 ml inhalation Q4H PRN SOB &/OR WHEEZING 03/23/23 Lactobacillus acidophilus 500 million cell capsule See Rx Instructions .Route DAILY #60 caps 09/20/23 cetirizine 1 mg/mL oral solution 10 mg (10 mL) feeding tube 1600 ALLERGIES #480 mL 09/30/23 guaifenesin 200 mg/5 mL oral liquid 200 mg (5 mL) feeding tube 0830 PRN COUGH/CONGESTION #118 mL 09/30/23 montelukast 4 mg oral granules in packet (Singulair) 4 mg PO DAILY ASTHMA #90 ea 09/30/23 lorazepam 2 mg/mL oral concentrate (Lorazepam Intensol) 2 mg feeding tube DAILY PRN agitation 01/04/24 dexamethasone 6 mg tablet 6 mg feeding tube DAILY 6 days #6 tabs 01/10/24 Hospital Course Summary of Care Provided Minutes Spent on Discharge: 33 Hospital Course: 43-year-old male history of chronic respiratory failure tracheostomy ventilator dependent, cerebral palsy, spastic quadriplegia, colostomy, seizure disorder, chronic dysphagia status post PEG tube, GERD presented [facility] ED 01/04/2024 for fever and rapid heart rate. Temperature initially 101.4 and patient had negative chest imaging, started on broad-spectrum antibiotics and IV fluid resuscitation but ultimately required norepinephrine and was diagnosed with septic shock. Patient ultimately found to have COVID-19 was placed on remdesivir and dexamethasone as well as tracheal aspirate which grew Pseudomonas aeruginosa, Proteus mirabilis, strep agalactiae. Patient evaluated by ID and plastic tile layer. Patient improved significantly on Zosyn, remdesivir, dexamethasone and a day of discharge patient was on day 7 of Zosyn and was okay for discharge off of antibiotics. Also okay for DC from pulm standpoint with plan for completion of dexamethasone for his COVID. Discussed with mother at bedside who is comfortable with this plan. Patient unable to answer questions or participate in exam. Discharge instructions as follows: -You will need to take dexamethasone for 6 more days -Would recommend lab work (BMP) to check your potassium in 2 to 3 days through your primary care physician's office. Please call their office upon discharge to obtain order for lab work. -Please call your primary care provider's office upon discharge to schedule a hospital follow up within 1 week. -For any concerning signs or symptoms please call 911 or proceed to the nearest emergency department Physical Exam Narrative General: Resting comfortably HEENT: Atraumatic Eyes: Resting comfortably, not spontaneously opening his eyes Neck: Supple Respiratory: Trach collar in place, somewhat diminished at the bases Cardiovascular: Regular rate GI: Does not appear to have any discomfort on palpation of abdomen Extremities: No significant pitting edema Musculoskeletal: Chronic contractures Neuro: Has some chronic deficits Skin: No rashes appreciated Psych: Unable to cooperate given baseline mental status Weight / BMI Weight Weight: 82 kg Body Mass Index (BMI) 35.4 ABG / Lab / Microbiology Data 01/10/24 03:30 01/10/24 03:30 Laboratory: Laboratory Results - last 24 hr 01/10/24 03:30: WBC 6.3, RBC 3.22 L, Hgb 9.0 L, Hct 28.2 L, MCV 87.6, MCH 28.0, MCHC 31.9 L, RDW Std Deviation 48.9 H, RDW Coeff of Emilee 15.2 H, Plt Count 164, MPV 9.7, Immature Gran % (Auto) 0.500, Neut % (Auto) 45.2 L, Lymph % (Auto) 39.6, [place] % (Auto) 12.6 H, Eos % (Auto) 1.9, Baso % (Auto) 0.2, Absolute Neuts (auto) 2.8, Absolute Lymphs (auto) 2.49, Nucleated RBC % 0, Sodium 140, Potassium 3.4 L, Chloride 108 H, Carbon Dioxide 27.0, Anion Gap 5, BUN 12, Creatinine 0.27 L, Estim Creat Clear Calc 319.81, Est GFR (MDRD) Af Amer 476, Est GFR (MDRD) Non-Af 393, BUN/Creatinine Ratio 44.3 H, Glucose 82, Calcium 8.1 L, Phosphorus 4.1, Magnesium 2.0, Total Bilirubin 0.30, AST 20, ALT 24, Alkaline Phosphatase 100, Total Protein 7.2, Albumin 2.8 L, Globulin 4.4 H, Albumin/Globulin Ratio 0.6 L Microbiology: Microbiology 01/04/24 12:08 Blood Culture (Wb) - Left Hand Blood Culture - Final No growth in 5 days. 01/07/24 13:30 Blood Culture (Wb) - Chest Blood Culture - Preliminary No growth in 48 hours. 01/04/24 07:45 Blood Culture (Wb) - Port Blood Culture - Final No growth in 5 days. 01/07/24 09:12 Mucosa - Nasopharyngeal SARS-CoV-2, Influenza & RSV (PCR) - Final SARS-CoV-2 (COVID 19 PCR) 01/04/24 21:27 Sputum, Induced/Lukens Gram Stain - Final 01/04/24 21:27 Sputum, Induced/Lukens Respiratory Culture - Final Pseudomonas aeruginosa Proteus mirabilis Streptococcus agalactiae (B) 01/04/24 08:05 Urine Catheter - Catheter Urine Culture - Final Culture exhibits no growth. 01/05/24 02:17 Nasal Secretion MRSA (PCR) - Final 01/04/24 14:33 Mucosa - Nose Respiratory Panel (PCR) - Final 01/04/24 08:05 Urine Catheter - Catheter Legionella Antigen - Final 01/04/24 08:05 Urine Catheter - Catheter Streptococcus pneumoniae Antigen (M - Final 01/04/24 08:00 Mucosa - Nasopharyngeal SARS-CoV-2, Influenza & RSV (PCR) - Final D/C Instructions Discharge Diet: - (Continue home tube feedings) Meaningful Use Info Meaningful Use Meaningful Use Diagnoses (Choose all that apply): None applicable Ischemic Stroke Statin Dosing Therapy Reference: STATIN DOSE THERAPY REFERENCE: * Patients > 75 years receive moderate or high dose statin therapy. * Patients 75 years or YOUNGER should receive HIGH intensity statin dose unless contraindicated. You will be required to document reason for non-treatment if statin daily dose does not meet guidelines. HIGH DOSE STATIN THERAPY DAILY Atorvastatin > than or = to 40 mg Rosuvastatin > than or = to 20 mg Amlodipine + Atorvastatin > than or = to 2.5/40 mg Ezetimibe + Simvastatin 10/80 mg Simvastatin 80mg Discharge Plan Admission Admit Date/Time: 01/04/24 10:45 Primary Reason for Your Visit: COVID and pneumonia Attending Provider: Lucia Dillard Primary Care Provider: Timmy Conn Consulting Providers: Krishna Siddiqui; Niranjan Hale; Jacek Monsalve; Yovanny Moreira; Michael Darden; Kalpesh Mayes; Mckinley Tristan; Cari Cavazos; Zackary Castro; Jace Shipley; Gris Hewitt; Patrice Langley; Jovi Christianson; Goran Rose; Luis Mohr; Chase Mcbride; Tejinder Landin; Flaquito Rider; Vito Bright; Luther Huggins; Roberto Hathaway; Michael Posadas Instructions Patient Instructions: Caring for Someone Who Has COVID-19 Additional Instructions / Restrictions: DISCHARGE INSTRUCTIONS PLEASE READ *Please take this with you to your next doctors appointment* -You will need to take dexamethasone for 6 more days -Would recommend lab work (BMP) to check your potassium in 2 to 3 days through your primary care physician's office. Please call their office upon discharge to obtain order for lab work. -Please call your primary care provider's office upon discharge to schedule a hospital follow up within 1 week. -For any concerning signs or symptoms please call 911 or proceed to the nearest emergency department Discharge Orders/Prescriptions Prescriptions: New dexamethasone 6 mg tablet 6 mg feeding tube DAILY 6 Days Qty: 6 0RF Continued albuterol sulfate 2.5 mg /3 mL (0.083 %) solution for nebulization 2.5 mg inhalation Q4H PRN (Reason: Sob &/Or Wheezing) cetirizine 1 mg/mL solution 10 mg feeding tube 1600 Qty: 480 11RF guaifenesin 200 mg/5 mL liquid 200 mg feeding tube 0830 PRN (Reason: COUGH/CONGESTION) Qty: 118 11RF Patient Comments: mom states giving 0.5ml to help with mucus plugs at 9am montelukast [Singulair] 4 mg granules in packet 4 mg PO DAILY Qty: 90 3RF Patient Comments: NEW RX THAT HAS NOT BEEN STARTED metoclopramide HCl 5 mg/5 mL solution 10 mg feeding tube 0830,1600,2100 phenobarbital 20 MG/5 ML elixir 60 mg G-tube 0830,2100 Cough Assist 1 dose .Route .MEDSUPPLY Rx Instructions: Inspiratory and Expiratory times of 20-40 seconds with a 1-2 second pause. oxygen concentrator 1 dose .Route .MEDSUPPLY Rx Instructions: As directed lactose-reduced food with fibr 0.06 gram-1.2 kcal/mL liquid 1,000 ml G-tube DAILY Patient Comments: PER PT HOME MED LIST: JEVITY 1.2 BENNY/ML 4.5-5 CARTONS PER DAY. APPROXIMATELY 1 LITER PER DAY. 55ML/HOUR TO 65ML DURING THE DAY. SLOW THIS DOWN TO 45 ML/HOUR AT NIGHT. gabapentin 250 MG/5 ML solution 500 mg G-tube 0000,0600,1200,1800 Patient Comments: PER PT HOME MED LIST: GABAPENTIN DOSING -IF MO'S HEART RATE IS LOW I DON'T ALWAYS GIVE THE WHOLE 10ML GABAPENTIN DOSE MY GUIDES ARE: PULSE <50: I MIGHT WAIT 1 HOUR FOR HIM TO BE MORE AWAKE. GIVE 4 ML PULSE IN THE 50'S: GIVE 5ML OR 6 ML PULSE IN THE 60'S: GIVE 6ML TO 7ML PULSE 69>: GIVE THE WHOLE 10ML plecanatide 3 mg tablet 3 mg GT 0830 Patient Comments: mom states has been given qod doxazosin 2 mg tablet 2 mg GT 0830 cholecalciferol (vitamin D3) 10 mcg/mL (400 unit/mL) drops 15 mcg feeding tube 0830 alum-mag hydroxide-simeth 200-200-20 mg/5 mL suspension 5 ml PO 0000,0600,1200,1800 PRN (Reason: ANTACID) acetaminophen 650 mg/20.3 mL suspension 650 mg feeding tube 0000,0600,1200,1800 PRN (Reason: PAIN ) baclofen 20 mg tablet 20 mg feeding tube Q6H Patient Comments: gets compounded suspension from [facility] pharm. ondansetron 4 mg tablet,disintegrating 4 mg PO Q8H PRN (Reason: NAUSEA/VOMITING) Qty: 30 0RF ipratropium-albuterol 0.5 mg-3 mg(2.5 mg base)/3 mL solution for nebulization 3 ml inhalation Q4H PRN (Reason: SOB &/OR WHEEZING) esomeprazole magnesium [Nexium Packet] [address] for susp in packet 40 mg G-tube BID lorazepam [Lorazepam Intensol] 2 mg/mL concentrate 2 mg feeding tube DAILY PRN (Reason: agitation) Lactobacillus acidophilus 500 million cell capsule See Rx Instructions .ROUTE DAILY Qty: 60 3RF Rx Instructions: 2 caps by Gtube daily; Referrals / Follow Up: Timmy Conn MD [Primary Care Provider] - Within 1 Week Disposition Disposition (needs filled in before D/C Order can be placed): Home Health Service Charges/Coding Visit Charges Inpatient E&M: 12991 Disch Hosp >30min
--- NOTE | 2024-01-10 15:51 | CASEMGMT ---
RE GUADALUPE notified family transportation will be here at 4:30 to transport pt home. Pt mom denies any additional questions or concerns at this time. RE GUADALUPE asked DC executive marketing assistant to fill out form for transportation home. Received form, made a copy and put in chart, provided original to RN.
--- NOTE | 2024-01-10 15:53 | CASEMGMT ---
RN ANAYELI sent HHC order and Disharge instructions to [facility] via [employer].
[2024-01-10] MEDS: CETIRIZINE HCL 1 MG/ML 10 MG GT (16:00)
== END 2024-01-10 17:10 | disposition home health service (06) | DRG 207 ==
LOC: ED 10:52 → PCU 11:04 → ICU 01-05 08:22
PROVIDERS: Family Medicine; Internal Medicine; Internal Medicine Critical Care Medicine; Internal Medicine Infectious Disease; Admitting Provider Internal Medicine; Emergency Provider Emergency Medicine; PCP Family Medicine; Visit Provider Internal Medicine
DX: J20.8 Acute bronchitis due to other specified organisms (principal); G80.0 Spastic quadriplegic cerebral palsy; J96.21 Acute and chronic respiratory failure with hypoxia; U07.1 COVID-19; J95.851 Ventilator associated pneumonia; N17.9 Acute kidney failure, unspecified; D69.6 Thrombocytopenia, unspecified; D63.8 Anemia in other chronic diseases classified elsewhere; R13.10 Dysphagia, unspecified; G40.909 Epilepsy, unspecified, not intractable, without status epilepticus; E66.9 Obesity, unspecified; Z93.1 Gastrostomy status; Z93.0 Tracheostomy status; K21.9 Gastro-esophageal reflux disease without esophagitis; E87.6 Hypokalemia; Z93.3 Colostomy status; Z68.36 Body mass index [BMI] 36.0-36.9, adult; Z79.899 Other long term (current) drug therapy
CPT/HCPCS: 31720; 36415; 36591; 36600; 71045; 71260; 71275; 74177; 80048; 80053; 81001; 82803; 83605; 83735; 83880; 84100; 84145; 84484; 85025; 85610; 85730; 87040; 87070; 87077; 87086; 87184; 87186; 87205; 87449; 87631; 87633; 87641; 93005; 94002; 94003; 94640; 94667; 94762; 97802; 97803; 99285; Q9967; A4216; J0248; J2405

== ENCOUNTER → 2024-01-14 | Outpatient (CLI) | payer MEDICARE, MEDICAID, SELFPAY ==
[2024-01-14 10:50] LABS: ALB/GLOB Ratio 0.7 RATIO (0.9-2.4); AST(SGOT) 15 U/L (15-37); Alanine Aminotransfer ALT/SGPT 25 U/L (16-61); Albumin, Serum 2.9 g/dL (3.2-5.0); Alkaline Phosphatase 110 U/L (45-117); Anion Gap 5 (5-15); BUN 14 mg/dL (7-18); BUN/Creat Ratio 60.1 RATIO (10-20); Calcium,Total 8.6 mg/dL (8.5-10.1); Chloride 102 mmol/L (98-107); Creatinine, Serum 0.23 mg/dL (0.70-1.30); EST Glomerular Filtration Rate 468 mL/min (>60); Est Glom Filt Rate - Afr Amer 566 mL/min (>60); Globulin 4.1 g/dL (2.2-4.2); Glucose 92 mg/dL (74-106); Potassium 3.7 mmol/L (3.5-5.1); Sodium Level 139 mmol/L (136-145)
== END | disposition home or self-care (01) ==
LOC: LABSPEC 10:09
PROVIDERS: PCP Family Medicine; Referring Provider Family Medicine; Visit Provider Family Medicine
DX: E87.6 Hypokalemia (principal)
CPT/HCPCS: 80053

== ENCOUNTER 2024-01-27 09:55 | Outpatient (RCR) | payer MEDICARE, MEDICAID, SELFPAY ==
[2024-01-27 10:02] LABS: Absolute Lymphocyte Count 1.16 X10^3/uL (0.83-4.51); Absolute Neutrophil Count 2.2 X10^3/uL (2.0-7.7); Basophil# 0.02 X10^3/uL; Basophil% 0.5 % (0-1); Eosinophil# 0.19 X10^3/uL; Eosinophils% 4.7 % (0-5); Hematocrit 33.6 % (40-54); Hemoglobin 10.5 g/dL (13.0-16.5); Lymphocyte # 1.16 X10^3/ul (0.83-4.51); Lymphocyte % 28.9 % (19-41); Mean Corp Hgb Conc 31.3 g/dL (32-36); Mean Corpuscular Hgb 26.9 pg (27.0-32.0); Mean Corpuscular Volume 85.9 fL (80-94); Mean Platelet Vol. 10.3 fl (6.2-12.0); Monocyte# 0.41 X10^3/uL; Monocyte% 10.2 % (0-10); NRBC Flagged by Analyzer 0 % (0-5); Neutrophil # 2.23 X10^3/uL (2.7-7.7); Neutrophil % 55.7 % (47-70); Platelet Count 161 K/mm3 (150-450); RBC Distribution Width CV 14.2 % (11.6-14.6); RBC Distribution Width SD 44.8 fl (35.1-43.9); Red Blood Count 3.91 M/mm3 (4.6-6.2)
[2024-01-27 10:38] LABS: Anion Gap 7 (5-15); BUN 14 mg/dL (7-18); BUN/Creat Ratio 43.3 RATIO (10-20); Chloride 103 mmol/L (98-107); Creatinine, Serum 0.32 mg/dL (0.70-1.30); EST Glomerular Filtration Rate 321 mL/min (>60); Est Glom Filt Rate - Afr Amer 388 mL/min (>60); Glucose 99 mg/dL (74-106); Sodium Level 140 mmol/L (136-145)
== END 2024-02-22 23:59 ==
LOC: LABSPEC 09:55
PROVIDERS: PCP Family Medicine; Referring Provider Family Medicine; Visit Provider Family Medicine
DX: E87.6 Hypokalemia (principal)
CPT/HCPCS: 80048; 85025

== ENCOUNTER 2024-01-31 16:07 | Emergency (ER) | payer MEDICARE, MEDICAID, SELFPAY ==
[2024-01-31 16:08] VITALS: BP 158/110; PULSE 85; RESP 22; TEMP 35.8; O2SAT 98; BMI 36.2
--- NOTE | 2024-01-31 16:27 | RAD_ITS ---
STUDY: X-RAY - LEFT KNEE REASON FOR EXAM: Male, 43 years old. pain TECHNIQUE: 3 view(s) of the knee. COMPARISON: None. FINDINGS: Limited by suboptimal positioning. There is severe demineralization and atrophy of all visualized bones. Suspicion of nondisplaced fracture of the medial femoral condyle. No other suspicion of fracture or dislocation. There is a moderate to large effusion. Severe atrophy of the visualized muscles. RAD/Knee 1 or 2 Views IMPRESSION: Limited by suboptimal positioning and also severe demineralization. Suspicion of nondisplaced fracture of the medial femoral condyle. Effusion. CT scan recommended. Electronically Signed: Jose Luis Aiken MD at 18:31 EST ,
--- NOTE | 2024-01-31 16:27 | VDLE_ITS ---
Reason For Study: LLE Pain RIGHT LEFT CFV is compressible, spontaneous, phasic, GSV is normal. competent and demonstrates normal CFV is compressible, spontaneous, phasic, augmentation. competent, and demonstrates normal Procedure augmentation. This is a venous duplex using B-mode, color FV is compressible, spontaneous, phasic, flow and spectral Doppler. competent and demonstrates normal Exam performed portable in ED. augmentation. A preliminary report was called and/or faxed POP V is compressible, spontaneous, phasic, to Dr. Moss. competent and demonstrates normal augmentation. T/P Trunk is compressible. PTV is compressible. LT PerV is compressible. VL/Venous Duplex US, Unilateral Interpretation Summary Deep veins of the left lower extremity are patent and compressible segmentally. There is no evidence of left lower extremity deep vein thrombosis. The left great saphenous vein dane ears patent and compressible segmentally. Ordering Physician: Racquel Moss Referring Physician: Timmy Conn Performed By: Nora Lara RDCS, RVT
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
[2024-01-31 17:24] LABS: Absolute Lymphocyte Count 0.82 X10^3/uL (0.83-4.51); Basophil# 0.01 X10^3/uL; Basophil% 0.2 % (0-1); Eosinophil# 0.04 X10^3/uL; Eosinophils% 0.6 % (0-5); Hematocrit 33.5 % (40-54); Hemoglobin 10.8 g/dL (13.0-16.5); Lymphocyte # 0.82 X10^3/ul (0.83-4.51); Lymphocyte % 12.4 % (19-41); Mean Corp Hgb Conc 32.2 g/dL (32-36); Mean Corpuscular Hgb 27.3 pg (27.0-32.0); Mean Corpuscular Volume 84.6 fL (80-94); Monocyte# 0.74 X10^3/uL; Monocyte% 11.2 % (0-10); NRBC Flagged by Analyzer 0 % (0-5); Neutrophil # 4.96 X10^3/uL (2.7-7.7); Platelet Count 113 K/mm3 (150-450); RBC Distribution Width CV 13.8 % (11.6-14.6); RBC Distribution Width SD 42.7 fl (35.1-43.9); Red Blood Count 3.96 M/mm3 (4.6-6.2); White Blood Count 6.6 K/mm3 (4.4-11.0)
[2024-01-31 17:30] LABS: Anion Gap 4 (5-15); BUN 8 mg/dL (7-18); BUN/Creat Ratio 24.2 RATIO (10-20); Calcium,Total 8.9 mg/dL (8.5-10.1); Chloride 100 mmol/L (98-107); Creatinine, Serum 0.33 mg/dL (0.70-1.30); EST Glomerular Filtration Rate 313 mL/min (>60); Est Glom Filt Rate - Afr Amer 379 mL/min (>60); Estimated Creatinine Clearance 265.33 ml/min; Glucose 117 mg/dL (74-106); Sodium Level 135 mmol/L (136-145)
[2024-01-31 17:31] LABS: Erythrocyte Sedimentation Rate 47 mm/hr (0-20)
[2024-01-31 18:08] VITALS: BP 168/110; PULSE 80; O2SAT 97
--- NOTE | 2024-01-31 18:43 | CT_ITS ---
EXAM: CT LEFT LOWER EXTREMITY WITHOUT INTRAVENOUS CONTRAST CLINICAL INDICATION: pain, possible fracture TECHNIQUE: Helically acquired images were obtained of the left lower extremity without intravenous contrast. 2-D reformats were performed by the technologist. This CT exam was performed using one or more of the following dose reduction techniques: automated exposure control, adjustment of the mA and/or kV according to patient size, and/or use of iterative reconstruction technique. COMPARISON: Knee radiograph on the same date. FINDINGS: BONES/JOINTS: Mildly displaced and mildly comminuted fracture through the intertrochanteric region of the femur extending into the medial metaphysis. Associated 2 to 3 mm articular surface incongruity. Lipohemarthrosis. Osteopenia. No sclerotic or destructive changes. SOFT TISSUES: Diffuse muscular atrophy. Periarticular soft tissue swelling. No radiopaque foreign body. CT/Extremity Lower without Contra IMPRESSION: 1. Mildly displaced and mildly comminuted fracture through the intertrochanteric region of the femur extending into the medial metaphysis. Associated 2 to 3 mm articular surface incongruity. 2. Lipohemarthrosis. 3. Osteopenia. Electronically Signed: José Miguel Andrews, at 20:11 EST ,
[2024-01-31] MEDS: 0.9% Normal Saline (1000mL) 1,000 ML 999 ML IV (19:06)
[2024-01-31] MEDS: Acetaminophen 650 MG/20 ML UDC GT (19:13)
[2024-01-31 20:00] VITALS: BP 158/104; PULSE 84; RESP 15; O2SAT 97
--- NOTE | 2024-01-31 20:45 | ED.RN ---
CASSIE FROM DR. JONES TO ORDER HOME MEDS AND GIVE PRIOR TO [facility].
[2024-01-31 21:13] LABS: Reflex Lactate? Y
[2024-01-31] MEDS: Baclofen 10 MG Tablet 20 MG PO (21:14)
[2024-01-31] MEDS: Gabapentin 300 MG Capsule PO (21:16)
[2024-01-31 22:00] VITALS: BP 155/106; PULSE 72; RESP 20; O2SAT 98
[2024-01-31 22:05] VITALS: BP 155/106; PULSE 72; RESP 20; TEMP 36.6; O2SAT 98
== END 2024-01-31 22:44 | disposition home or self-care (01) ==
PROVIDERS: Emergency Provider Emergency Medicine; PCP Family Medicine; Visit Provider Emergency Medicine
DX: S72.435A Nondisplaced fracture of medial condyle of left femur, initial encounter for closed fracture (principal); Z93.0 Tracheostomy status; Z93.3 Colostomy status; Z93.1 Gastrostomy status; G80.9 Cerebral palsy, unspecified; M79.605 Pain in left leg; X58.XXXA Exposure to other specified factors, initial encounter; Z79.899 Other long term (current) drug therapy
CPT/HCPCS: 36591; 73560; 73700; 80048; 83605; 85025; 85652; 86140; 87040; 93971; 96360; 99285; A4216

== ENCOUNTER 2024-02-24 13:59 | Outpatient (RCR) | payer MEDICARE, MEDICAID, SELFPAY ==
[2024-02-24 14:19] LABS: Absolute Lymphocyte Count 1.93 X10^3/uL (0.83-4.51); Absolute Neutrophil Count 2.3 X10^3/uL (2.0-7.7); Basophil# 0.01 X10^3/uL; Basophil% 0.2 % (0-1); Eosinophil# 0.29 X10^3/uL; Eosinophils% 5.8 % (0-5); Hematocrit 32.6 % (40-54); Hemoglobin 9.8 g/dL (13.0-16.5); Lymphocyte # 1.93 X10^3/ul (0.83-4.51); Lymphocyte % 38.5 % (19-41); Mean Corp Hgb Conc 30.1 g/dL (32-36); Mean Corpuscular Hgb 25.5 pg (27.0-32.0); Mean Corpuscular Volume 84.9 fL (80-94); Mean Platelet Vol. 9.9 fl (6.2-12.0); Monocyte# 0.44 X10^3/uL; Monocyte% 8.8 % (0-10); NRBC Flagged by Analyzer 0 % (0-5); Neutrophil # 2.33 X10^3/uL (2.7-7.7); Neutrophil % 46.5 % (47-70); Platelet Count 209 K/mm3 (150-450); RBC Distribution Width CV 14.1 % (11.6-14.6); RBC Distribution Width SD 43.2 fl (35.1-43.9); Red Blood Count 3.84 M/mm3 (4.6-6.2)
[2024-02-24 14:38] LABS: Anion Gap 6 (5-15); BUN 15 mg/dL (7-18); BUN/Creat Ratio 53.8 RATIO (10-20); Calcium,Total 8.2 mg/dL (8.5-10.1); Chloride 104 mmol/L (98-107); Creatinine, Serum 0.28 mg/dL (0.70-1.30); EST Glomerular Filtration Rate 380 mL/min (>60); Est Glom Filt Rate - Afr Amer 460 mL/min (>60); Glucose 102 mg/dL (74-106); Potassium 3.7 mmol/L (3.5-5.1); Sodium Level 138 mmol/L (136-145)
== END 2024-03-24 23:59 ==
LOC: LABSPEC 13:59
PROVIDERS: PCP Family Medicine; Referring Provider Family Medicine; Visit Provider Family Medicine
DX: E87.6 Hypokalemia (principal)
CPT/HCPCS: 80048; 85025

== ENCOUNTER → 2024-03-08 | Outpatient (CLI) | payer MEDICARE, MEDICAID, SELFPAY ==
[2024-03-08 09:38] LABS: Absolute Lymphocyte Count 1.74 X10^3/uL (0.83-4.51); Absolute Neutrophil Count 2.6 X10^3/uL (2.0-7.7); Basophil# 0.01 X10^3/uL; Basophil% 0.2 % (0-1); Eosinophils% 5.8 % (0-5); Hematocrit 31.3 % (40-54); Hemoglobin 9.7 g/dL (13.0-16.5); Lymphocyte # 1.74 X10^3/ul (0.83-4.51); Lymphocyte % 33.7 % (19-41); Mean Corpuscular Hgb 25.9 pg (27.0-32.0); Mean Corpuscular Volume 83.7 fL (80-94); Mean Platelet Vol. 10.7 fl (6.2-12.0); Monocyte% 9.7 % (0-10); NRBC Flagged by Analyzer 0 % (0-5); Neutrophil # 2.61 X10^3/uL (2.7-7.7); Neutrophil % 50.4 % (47-70); Platelet Count 177 K/mm3 (150-450); RBC Distribution Width CV 14.4 % (11.6-14.6); RBC Distribution Width SD 43.7 fl (35.1-43.9); Red Blood Count 3.74 M/mm3 (4.6-6.2); White Blood Count 5.2 K/mm3 (4.4-11.0)
[2024-03-08 09:40] LABS: Anion Gap 5 (5-15); BUN 15 mg/dL (7-18); BUN/Creat Ratio 53.2 RATIO (10-20); Calcium,Total 8.3 mg/dL (8.5-10.1); Chloride 102 mmol/L (98-107); Creatinine, Serum 0.28 mg/dL (0.70-1.30); EST Glomerular Filtration Rate 375 mL/min (>60); Est Glom Filt Rate - Afr Amer 454 mL/min (>60); Glucose 112 mg/dL (74-106); Potassium 3.5 mmol/L (3.5-5.1); Sodium Level 139 mmol/L (136-145)
== END | disposition home or self-care (01) ==
LOC: LAB 09:15 → LABSPEC 09:17
PROVIDERS: PCP Family Medicine; Referring Provider Family Medicine; Visit Provider Family Medicine
DX: D50.9 Iron deficiency anemia, unspecified (principal)
CPT/HCPCS: 80048; 85025

== ENCOUNTER → 2024-03-16 | Outpatient (CLI) | payer MEDICARE, MEDICAID, SELFPAY ==
--- NOTE | 2024-03-16 15:45 | RAD_ITS ---
STUDY: X-RAY - LEFT KNEE REASON FOR EXAM: Male, 44 years old. DISP FX L FEMUR TECHNIQUE: 2 views of the left knee. COMPARISON: Left knee radiographs dated 01/31/2024. FINDINGS: There is generalized osteopenia. There is a persistent fracture of the medial femoral condyle. Normal visualized proximal tibia and fibula. Normal proximal tibiofibular articulation. Normal lateral femorotibial compartment. Normal patellofemoral articulation. There is a persistent moderate to large joint effusion. The soft tissue structures are unremarkable. RAD/Knee 1 or 2 Views IMPRESSION: Persistent medial femoral condyle fracture. Persistent moderate to large joint effusion. Electronically Signed: Mynor Roberts MD at 8:46 EST ,
== END | disposition home or self-care (01) ==
LOC: RAD 15:32
PROVIDERS: PCP Family Medicine; Referring Provider Specialist; Visit Provider Specialist
DX: S72.432A Displaced fracture of medial condyle of left femur, initial encounter for closed fracture (principal); X58.XXXA Exposure to other specified factors, initial encounter
CPT/HCPCS: 73560

== ENCOUNTER 2024-04-03 08:49 | Outpatient (RCR) | payer MEDICARE, MEDICAID, SELFPAY ==
[2024-04-03 09:06] LABS: Absolute Lymphocyte Count 2.12 X10^3/uL (0.83-4.51); Absolute Neutrophil Count 2.2 X10^3/uL (2.0-7.7); Basophil# 0.01 X10^3/uL; Basophil% 0.2 % (0-1); Eosinophil# 0.25 X10^3/uL; Eosinophils% 4.9 % (0-5); Hematocrit 30.9 % (40-54); Hemoglobin 9.8 g/dL (13.0-16.5); Lymphocyte # 2.12 X10^3/ul (0.83-4.51); Lymphocyte % 41.2 % (19-41); Mean Corp Hgb Conc 31.7 g/dL (32-36); Mean Corpuscular Hgb 26.3 pg (27.0-32.0); Mean Corpuscular Volume 82.8 fL (80-94); Mean Platelet Vol. 9.8 fl (6.2-12.0); Monocyte# 0.56 X10^3/uL; Monocyte% 10.9 % (0-10); NRBC Flagged by Analyzer 0 % (0-5); Neutrophil # 2.19 X10^3/uL (2.7-7.7); Neutrophil % 42.6 % (47-70); Platelet Count 170 K/mm3 (150-450); RBC Distribution Width CV 15.6 % (11.6-14.6); RBC Distribution Width SD 46.3 fl (35.1-43.9); Red Blood Count 3.73 M/mm3 (4.6-6.2); White Blood Count 5.1 K/mm3 (4.4-11.0)
[2024-04-03 09:23] LABS: Anion Gap 5 (5-15); BUN 11 mg/dL (7-18); BUN/Creat Ratio 52.6 RATIO (10-20); Calcium,Total 8.4 mg/dL (8.5-10.1); Chloride 102 mmol/L (98-107); Creatinine, Serum 0.21 mg/dL (0.70-1.30); EST Glomerular Filtration Rate 530 mL/min (>60); Est Glom Filt Rate - Afr Amer 641 mL/min (>60); Glucose 87 mg/dL (74-106); Potassium 3.8 mmol/L (3.5-5.1); Sodium Level 138 mmol/L (136-145)
== END 2024-04-21 23:59 ==
LOC: LABSPEC 08:49
PROVIDERS: PCP Family Medicine; Referring Provider Family Medicine; Visit Provider Family Medicine
DX: E87.6 Hypokalemia (principal)
CPT/HCPCS: 80048; 85025

== ENCOUNTER → 2024-04-25 | Outpatient (CLI) | payer MEDICARE, MEDICAID, SELFPAY ==
--- NOTE | 2024-04-25 12:50 | BD_ITS ---
PROCEDURE: DEXA BONE DENSITY STUDY REASON FOR EXAM: M, age 44 y/o . Postmenopausal. TECHNIQUE: DEXA scan of lumbar spine and right hip. COMPARISON: None. FINDINGS: Lumbar Spine (L1-L4): g/cm2 (0.501)/T-score (-5.7)/Z-score (-5.6) findings are suggestive of osteoporosis with a high fracture risk. Right Femur Total: g/cm2 (0.314)/T-score (-4.8)/Z-score (-4.5) Right Femoral Neck: g/cm2 (0.250)/T-score (-5.0)/Z-score (-4.4) BD/Dexa Bone Density Study IMPRESSION: The patient is considered osteoporotic as outlined below according to [employer] (WHO) criteria with a high fracture risk. Reading Location: [id number]
== END | disposition home or self-care (01) ==
LOC: OPBD 12:49
PROVIDERS: PCP Family Medicine; Referring Provider Family Medicine; Visit Provider Family Medicine
DX: M84.453A Pathological fracture, unspecified femur, initial encounter for fracture (principal); M81.0 Age-related osteoporosis without current pathological fracture
CPT/HCPCS: 77080

== ENCOUNTER 2024-05-01 09:48 | Outpatient (RCR) | payer MEDICARE, MEDICAID, SELFPAY ==
[2024-05-01 12:51] LABS: Absolute Neutrophil Count 3.1 X10^3/uL (2.0-7.7); Basophil# 0.01 X10^3/uL; Basophil% 0.2 % (0-1); Eosinophil# 0.29 X10^3/uL; Eosinophils% 4.7 % (0-5); Hematocrit 33.5 % (40-54); Hemoglobin 10.5 g/dL (13.0-16.5); Lymphocyte % 35.4 % (19-41); Mean Corp Hgb Conc 31.3 g/dL (32-36); Mean Corpuscular Hgb 25.9 pg (27.0-32.0); Mean Corpuscular Volume 82.7 fL (80-94); Mean Platelet Vol. 10.5 fl (6.2-12.0); Monocyte# 0.64 X10^3/uL; Monocyte% 10.3 % (0-10); NRBC Flagged by Analyzer 0 % (0-5); Neutrophil # 3.07 X10^3/uL (2.7-7.7); Neutrophil % 49.2 % (47-70); Platelet Count 209 K/mm3 (150-450); RBC Distribution Width CV 16.6 % (11.6-14.6); RBC Distribution Width SD 50.4 fl (35.1-43.9); Red Blood Count 4.05 M/mm3 (4.6-6.2); White Blood Count 6.2 K/mm3 (4.4-11.0)
[2024-05-01 13:00] LABS: Anion Gap 10 (5-15); BUN 12 mg/dL (4-19); BUN/Creat Ratio 40.6 RATIO (10-20); Calcium,Total 8.8 mg/dL (7.6-11.0); Carbon Dioxide 27.4 mmol/L (21.0-32.0); Chloride 98 mmol/L (98-108); Creatinine, Serum 0.29 mg/dL (0.70-1.20); EST Glomerular Filtration Rate 154 (>60); Glucose 82 mg/dL (70-99); Potassium 4.3 mmol/L (3.3-5.1); Sodium Level 135 mmol/L (133-145)
== END 2024-05-22 23:59 ==
LOC: LABSPEC 09:48
PROVIDERS: PCP Family Medicine; Referring Provider Family Medicine; Visit Provider Family Medicine
DX: E87.6 Hypokalemia (principal)
CPT/HCPCS: 80048; 85025

== ENCOUNTER → 2024-05-09 | Outpatient (CLI) | payer MEDICARE, MEDICAID, SELFPAY | END | disposition home or self-care (01) | PROVIDERS: PCP Family Medicine; Referring Provider Nurse Practitioner Acute Care; Visit Provider Nurse Practitioner Acute Care | DX: J18.9 Pneumonia, unspecified organism (principal) | CPT/HCPCS: 87070; 87077; 87186; 87205 ==

== ENCOUNTER 2024-05-29 11:01 | Outpatient (RCR) | payer MEDICARE, MEDICAID, SELFPAY ==
[2024-05-29 11:22] LABS: Absolute Lymphocyte Count 2.21 X10^3/uL (0.83-4.51); Absolute Neutrophil Count 3.5 X10^3/uL (2.0-7.7); Basophil# 0.02 X10^3/uL; Basophil% 0.3 % (0-1); Eosinophil# 0.35 X10^3/uL; Eosinophils% 5.2 % (0-5); Hematocrit 31.8 % (40-54); Lymphocyte # 2.21 X10^3/ul (0.83-4.51); Lymphocyte % 32.7 % (19-41); Mean Corp Hgb Conc 31.4 g/dL (32-36); Mean Corpuscular Hgb 26.7 pg (27.0-32.0); Mean Corpuscular Volume 84.8 fL (80-94); Mean Platelet Vol. 10.1 fl (6.2-12.0); Monocyte# 0.65 X10^3/uL; Monocyte% 9.6 % (0-10); NRBC Flagged by Analyzer 0 % (0-5); Neutrophil % 51.9 % (47-70); Platelet Count 182 K/mm3 (150-450); RBC Distribution Width CV 16.6 % (11.6-14.6); RBC Distribution Width SD 51.6 fl (35.1-43.9); Red Blood Count 3.75 M/mm3 (4.6-6.2); White Blood Count 6.8 K/mm3 (4.4-11.0)
[2024-05-29 11:44] LABS: ALB/GLOB Ratio 0.9 RATIO (0.9-2.4); AST(SGOT) 14 U/L (<=37); Alanine Aminotransfer ALT/SGPT 11 U/L (<=46); Albumin, Serum 3.5 g/dL (3.5-5.0); Alkaline Phosphatase 131 U/L (40-129); Anion Gap 12 (5-15); BUN 13 mg/dL (4-19); BUN/Creat Ratio 37.5 RATIO (10-20); Calcium,Total 8.8 mg/dL (7.6-11.0); Carbon Dioxide 25.6 mmol/L (21.0-32.0); Chloride 100 mmol/L (98-108); Creatinine, Serum 0.34 mg/dL (0.70-1.20); EST Glomerular Filtration Rate 147 (>60); Globulin 3.7 g/dL (2.2-4.2); Glucose 107 mg/dL (70-99); Potassium 3.7 mmol/L (3.3-5.1); Protein, Total 7.1 g/dL (5.9-8.4); Sodium Level 137 mmol/L (133-145); Total Bilirubin < 0.15 mg/dL (0.00-1.30)
== END 2024-06-21 23:59 ==
LOC: LABSPEC 11:01
PROVIDERS: PCP Family Medicine; Referring Provider Family Medicine; Visit Provider Family Medicine
DX: E87.6 Hypokalemia (principal)
CPT/HCPCS: 80053; 85025

== ENCOUNTER → 2024-06-26 | Outpatient (CLI) | payer MEDICARE, MEDICAID, SELFPAY ==
[2024-06-26 11:44] LABS: Absolute Lymphocyte Count 2.13 X10^3/uL (0.83-4.51); Absolute Neutrophil Count 2.7 X10^3/uL (2.0-7.7); Basophil# 0.02 X10^3/uL; Basophil% 0.3 % (0-1); Eosinophil# 0.38 X10^3/uL; Eosinophils% 6.6 % (0-5); Hematocrit 32.2 % (40-54); Hemoglobin 10.3 g/dL (13.0-16.5); Lymphocyte # 2.13 X10^3/ul (0.83-4.51); Lymphocyte % 36.8 % (19-41); Mean Corpuscular Volume 84.3 fL (80-94); Monocyte# 0.53 X10^3/uL; Monocyte% 9.2 % (0-10); NRBC Flagged by Analyzer 0 % (0-5); Neutrophil # 2.71 X10^3/uL (2.7-7.7); Neutrophil % 46.8 % (47-70); Platelet Count 204 K/mm3 (150-450); RBC Distribution Width CV 15.4 % (11.6-14.6); RBC Distribution Width SD 46.5 fl (35.1-43.9); Red Blood Count 3.82 M/mm3 (4.6-6.2); White Blood Count 5.8 K/mm3 (4.4-11.0)
[2024-06-26 14:45] LABS: PTHIN 67 pg/mL (11-61)
[2024-06-26 14:53] LABS: ALB/GLOB Ratio 0.8 RATIO (0.9-2.4); AST(SGOT) 12 U/L (<=37); Alanine Aminotransfer ALT/SGPT 8 U/L (<=46); Albumin, Serum 3.6 g/dL (3.5-5.0); Alkaline Phosphatase 166 U/L (40-129); Anion Gap 10 (5-15); BUN 11 mg/dL (4-19); BUN/Creat Ratio 40.8 RATIO (10-20); Calcium,Total 8.9 mg/dL (7.6-11.0); Carbon Dioxide 27.6 mmol/L (21.0-32.0); Chloride 98 mmol/L (98-108); Creatinine, Serum 0.27 mg/dL (0.70-1.20); EST Glomerular Filtration Rate 157 (>60); Ferritin 39 ng/mL (37-417); Globulin 4.2 g/dL (2.2-4.2); Glucose 80 mg/dL (70-99); Iron Binding Capacity,Total 246 ug/dL (250-450); Potassium 3.8 mmol/L (3.3-5.1); Protein, Total 7.8 g/dL (5.9-8.4); Sodium Level 136 mmol/L (133-145); Total Bilirubin 0.16 mg/dL (0.00-1.30)
[2024-06-26 14:56] LABS: Iron 30 ug/dL (65-175); Iron Binding Capacity,Unsat 216 ug/dL (228-428); PERCENT IRON SATURATION 12.2 % (9-55)
[2024-06-26 15:02] LABS: Follicle Stimulating Hormone 64.4 mIU/mL; Luteinizing Hormone 40.9 mIU/mL; Vitamin D,25 Hydroxy 52.6 ng/mL (30-100)
== END | disposition home or self-care (01) ==
LOC: LABSPEC 10:33
PROVIDERS: Internal Medicine Endocrinology, Diabetes & Metabolism; PCP Family Medicine; Referring Provider Family Medicine; Visit Provider Family Medicine
DX: E11.9 Type 2 diabetes mellitus without complications (principal); R56.9 Unspecified convulsions; D50.9 Iron deficiency anemia, unspecified; M81.0 Age-related osteoporosis without current pathological fracture; N64.3 Galactorrhea not associated with childbirth; E03.9 Hypothyroidism, unspecified; E55.9 Vitamin D deficiency, unspecified
CPT/HCPCS: 80053; 80184; 82306; 82728; 83001; 83002; 83540; 83550; 83970; 84146; 84305; 84402; 84403; 85025

== ENCOUNTER → 2024-07-18 | Outpatient (CLI) | payer MEDICARE, MEDICAID, SELFPAY ==
[2024-07-22 14:08] LABS: Insulin Like Growth Factor 109 ng/mL (84-270); Testosterone, % Free 5.01 % (1.50-4.20); Testosterone, Total 10 ng/dL (264-916)
== END | disposition home or self-care (01) ==
LOC: LABSPEC 11:00
PROVIDERS: PCP Family Medicine; Referring Provider Internal Medicine Endocrinology, Diabetes & Metabolism; Visit Provider Internal Medicine Endocrinology, Diabetes & Metabolism
DX: E87.6 Hypokalemia (principal); M81.0 Age-related osteoporosis without current pathological fracture
CPT/HCPCS: 84305; 84402; 84403

== ENCOUNTER 2024-07-25 09:48 | Outpatient (RCR) | payer MEDICARE, MEDICAID, SELFPAY ==
[2024-07-25 10:10] LABS: Absolute Lymphocyte Count 2.03 X10^3/uL (0.83-4.51); Absolute Neutrophil Count 3.4 X10^3/uL (2.0-7.7); Basophil# 0.01 X10^3/uL; Basophil% 0.2 % (0-1); Eosinophil# 0.23 X10^3/uL; Eosinophils% 3.6 % (0-5); Hematocrit 30.1 % (40-54); Hemoglobin 9.8 g/dL (13.0-16.5); Lymphocyte # 2.03 X10^3/ul (0.83-4.51); Lymphocyte % 31.8 % (19-41); Mean Corp Hgb Conc 32.6 g/dL (32-36); Mean Corpuscular Hgb 27.4 pg (27.0-32.0); Mean Corpuscular Volume 84.1 fL (80-94); Mean Platelet Vol. 10.2 fl (6.2-12.0); Monocyte# 0.74 X10^3/uL; Monocyte% 11.6 % (0-10); NRBC Flagged by Analyzer 0 % (0-5); Neutrophil # 3.36 X10^3/uL (2.7-7.7); Neutrophil % 52.5 % (47-70); Platelet Count 166 K/mm3 (150-450); RBC Distribution Width CV 15.6 % (11.6-14.6); RBC Distribution Width SD 47.2 fl (35.1-43.9); Red Blood Count 3.58 M/mm3 (4.6-6.2); White Blood Count 6.4 K/mm3 (4.4-11.0)
[2024-07-25 11:04] LABS: Anion Gap 14 (5-15); BUN 8 mg/dL (4-19); BUN/Creat Ratio 24.1 RATIO (10-20); Calcium,Total 8.8 mg/dL (7.6-11.0); Chloride 99 mmol/L (98-108); Creatinine, Serum 0.33 mg/dL (0.70-1.20); EST Glomerular Filtration Rate 148 (>60); Glucose 113 mg/dL (70-99); Potassium 3.7 mmol/L (3.3-5.1); Sodium Level 137 mmol/L (133-145)
== END 2024-08-21 23:59 ==
LOC: LABSPEC 09:48
PROVIDERS: Internal Medicine Endocrinology, Diabetes & Metabolism; PCP Family Medicine; Referring Provider Family Medicine; Visit Provider Family Medicine
DX: E87.6 Hypokalemia (principal)
CPT/HCPCS: 80048; 84403; 85025

== ENCOUNTER → 2024-07-26 | Outpatient (CLI) | payer MEDICARE, MEDICAID, SELFPAY ==
--- NOTE | 2024-07-26 14:18 | RAD_ITS ---
PROCEDURE: KNEE 1 OR 2 VIEWS 07/26/2024 REASON FOR EXAM: FX LEFT MEDIAL FEMUR CONDYLE TECHNIQUE: 2 obliquely views of the left knee were obtained. COMPARISON: Left knee, 03/16/2024. FINDINGS: There is osteopenia of the bones about the knee. There is no acute fracture identified. The knee joint spaces are difficult to evaluate due to the nonstandard projections. Knee joint effusion can not be evaluated. There are no soft tissue abnormalities. RAD/Knee 1 or 2 Views IMPRESSION: No fractures are evident. The knee is difficult to evaluate due to the nonstan dard projections. Reading Location: [id number]
== END | disposition home or self-care (01) ==
LOC: MTRAD 14:15
PROVIDERS: PCP Family Medicine; Referring Provider Specialist; Visit Provider Specialist
DX: S72.432A Displaced fracture of medial condyle of left femur, initial encounter for closed fracture (principal); X58.XXXA Exposure to other specified factors, initial encounter
CPT/HCPCS: 73560

== ENCOUNTER → 2024-08-22 | Outpatient (CLI) | payer MEDICARE, MEDICAID, SELFPAY ==
[2024-08-22 13:44] LABS: Hematocrit 31.8 % (40-54); Hemoglobin 10.1 g/dL (13.0-16.5); Immature Granulocytes Count 0.020 X10^3/uL (0.0-0.0); Mean Corp Hgb Conc 31.8 g/dL (32-36); Mean Corpuscular Volume 85.3 fL (80-94); Mean Platelet Vol. 10.8 fl (6.2-12.0); NRBC Flagged by Analyzer 0 % (0-5); Platelet Count 118 K/mm3 (150-450); RBC Distribution Width CV 16.3 % (11.6-14.6); RBC Distribution Width SD 49.5 fl (35.1-43.9); Red Blood Count 3.73 M/mm3 (4.6-6.2); White Blood Count 3.7 K/mm3 (4.4-11.0)
[2024-08-22 13:59] LABS: Anion Gap 9 (5-15); BUN 10 mg/dL (4-19); BUN/Creat Ratio 46.4 RATIO (10-20); Calcium,Total 8.7 mg/dL (7.6-11.0); Carbon Dioxide 28.9 mmol/L (21.0-32.0); Chloride 99 mmol/L (98-108); Glucose 90 mg/dL (70-99); Potassium 4.1 mmol/L (3.3-5.1)
== END | disposition home or self-care (01) ==
LOC: LAB 13:08 → LABSPEC 13:08
PROVIDERS: PCP Family Medicine; Referring Provider Family Medicine; Visit Provider Family Medicine
DX: E87.6 Hypokalemia (principal)
CPT/HCPCS: 80048; 85025

== ENCOUNTER 2024-09-03 13:28 | Observation (INO) | payer SELFPAY ==
--- NOTE | 2024-09-03 13:49 | PCM.HP.STD ---
HPI - General General Date of Admission: 09/03/24 Date of Service: 09/03/24 Chief Complaint: Respite care HPI Narrative The patient is a 44 y/o M w/ PMHx: Chronic anemia, Chronic asthma w/ allergic rhinitis, Chronic Hypoxic and Hypercarbic Respiratory Failure on Chronic Ventilation following w/ Dr. Monsalve, Cerebral Palsy with quadriplegia w/ hx of previous baclofen pump, colostomy, chronic catheter, frequent difficulties with aspiration, G-J tube in place, Seizure disorder, Hx PE eventually transition to Lovenox with associated significant thrombocytopenia following with hematology prior who presents to [facility] ED on 09/03/2024 for planned respite care as his father was hospitalized and his mother necessitates upcoming surgery with per report plan 4 day respite admission. Mother present and notes no acute recent concerns or issues. Patient most recent noted pulmonary visit 04/04/2024. Patient most recent noted ED visit 01/31/2024 with a left femur fracture at that time. [facility] Medical History Hypogonadism in male Osteoporosis History of aspiration pneumonia Tachycardia Aspiration pneumonia Anxiety GERD (gastroesophageal reflux disease) Non-smoker On home oxygen therapy Pulmonary embolism Seizures Cerebral palsy Chronic respiratory failure with hypoxia Pseudomonas pneumonia Colostomy prolapse Cerebral palsy Acute dyspnea Anemia in chronic illness Upper GI bleeding (04/2020) Thrombocytopenia Pulmonary embolism on left (06/14/19) Iron deficiency anemia Obesity Tracheostomy in place Debility Chronic respiratory failure Edema Nonrheumatic mitral valve prolapse Redundant colon History of seizure disorder Home Medications ?Medication ?Instructions ?Recorded ?Last Taken ?Type phenobarbital 20 mg/5 mL (4 mg/mL) 60 mg G-tube 0830,2100 SEIZURES 02/19/17 01/03/24 History oral elixir metoclopramide HCl 5 mg/5 mL oral 10 mg feeding tube 0830,1600,2100 09/16/18 01/03/24 History solution STOMACH Cough Assist 1 dose .Route .MEDSUPPLY assist in 12/25/18 03/23/23 History clearing secretions oxygen concentrator 1 dose .Route .MEDSUPPLY second 12/25/18 Unknown History unit, 4 LPM cont all modalities gabapentin 250 mg/5 mL oral 500 mg G-tube 0000,0600,1200,1800 09/26/19 01/04/24 History solution SEIZURES albuterol sulfate 2.5 mg/3 mL 2.5 mg inhalation Q4H PRN Sob &/Or 11/27/20 Unknown History (0.083 %) solution for nebulization Wheezing doxazosin 2 mg tablet 2 mg PO 0830 BLOOD PRESSURE 11/30/21 01/03/24 History cholecalciferol (vitamin D3) 10 15 mcg feeding tube 0830 SUPPLEMENT 03/24/22 01/03/24 History mcg/mL (400 unit/mL) oral drops acetaminophen 650 mg/20.3 mL oral 650 mg feeding tube 10/24/22 01/04/24 History suspension 0000,0600,1200,1800 PRN PAIN aluminum-mag hydroxide-simethicone 5 ml PO 0000,0600,1200,1800 PRN 10/24/22 Unknown History 200 mg-200 mg-20 mg/5 mL oral susp ANTACID baclofen 20 mg tablet 20 mg feeding tube Q6H MUSCLE 12/10/22 01/04/24 History SPASMS ondansetron 4 mg disintegrating 4 mg PO Q8H PRN NAUSEA/VOMITING 12/13/22 Unknown Rx tablet #30 tabs esomeprazole magnesium 40 mg 40 mg G-tube BID ACID REFLUX 03/23/23 01/03/24 History granules delayed release for susp (Nexium Packet) ipratropium 0.5 mg-albuterol 3 mg 3 ml inhalation Q4H PRN SOB &/OR 03/23/23 Unknown History (2.5 mg base)/3 mL nebulization WHEEZING soln cetirizine 1 mg/mL oral solution 10 mg (10 mL) feeding tube 1600 09/30/23 01/03/24 Rx ALLERGIES #480 mL montelukast 4 mg oral granules in 4 mg PO DAILY ASTHMA #90 ea 09/30/23 01/03/24 Rx packet (Singulair) lorazepam 2 mg/mL oral concentrate 2 mg feeding tube DAILY PRN 01/04/24 01/03/24 History (Lorazepam Intensol) agitation food supplemt, lactose-reduced 1,000 ml PO QDAY 04/04/24 Unknown History 0.04 gram-1.05 kcal/mL oral liquid (Ensure Original) guaifenesin 200 mg/5 mL oral liquid 2 mg feeding tube 0830 04/04/24 Unknown History COUGH/CONGESTION plecanatide 3 mg tablet 3 mg G-tube 0830 BOWELS #90 tabs 04/05/24 Unknown Rx testosterone (AndroGel) 1 pump topical QDAY #75 grams 07/24/24 Unknown Rx Allergy/AdvReac Type Severity Reaction Status Date / Time chlorhexidine Allergy Rash Verified 06/15/24 13:51 cisapride monohydrate (From Allergy Rash Verified 06/15/24 13:51 Propulsid) house dust Allergy NEEDS Verified 06/15/24 13:51 FOLLOW-UP metronidazole (From Flagyl) Allergy Rash Verified 06/15/24 13:51 codeine AdvReac hallucinati Verified 06/15/24 13:51 ons morphine AdvReac Hallucinati Verified 06/15/24 13:51 ons Family History Mother Hepatitis C Hypertension HIV disease CVA (cerebral vascular accident) Liver disease Father H/O heart artery stent CAD (coronary artery disease) Atrial fibrillation Hypertension Esophageal cancer Grandmother Asthma Diverticulitis Diabetes Myocardial infarction Heart disease Surgical History History of eye surgery Heel cord lengthening History of soft tissue release History of open reduction and internal fixation (ORIF) procedure History of gastrostomy tube placement Status post insertion of intrathecal baclofen pump History of colostomy Colostomy in place Social History household members: family housing: house current occupational status: disabled Smoking Status: Never smoker alcohol intake: never substance use type: does not use caffeine: No ROS Review of Systems ROS Unobtainable: due to mental status Physical Exam Narrative Physical Examination: General: awake, alert, nonverbal, seated upright in his chair, no acute distress, calm. Skin: normal color, turgor, no icterus, cyanosis except occasional staged abrasion to the extremity. HEENT: AT/NC, EOMI, PERRLA, moderately dry MM with protruding tongue, difficult to discern carotid bruit and JVD given very thickened neck, trach in place. Lungs: Diminished breath sounds, > bases, no obvious distress, no evidence of any distress, tracheostomy in place, no rales, ronchi or wheezing. Heart: Mildly tachycardic with regular rhythm; no gallop, rub audible. Abdomen: soft, obese, no obvious TTP, chronically distended similar to prior baseline, ostomy in place, normal BS, no appreciated HSM. Extremities: no cyanosis, chronic BL upper extremity and BL LE chronic stable edema nonpitting, quadriplegic status. Neurological: Patient awake, alert, nonverbal, unable to answer any orientation questions, severe MRDD with cerebral palsy with quadriplegia, calm, cognitive function baseline intact, pupils equally reactive to light and accommodation, cranial nerves difficult to assess given MRDD quadriplegic status, strength severely globally decreased. Psychiatric: affect appears calm, nonverbal, no acute evidence of depressive or anxiety but does have underlying history. Assessment & Plan Assessment/Plan (1) Respite care available: PLAN: Plan The patient is a 44 y/o M w/ PMHx: Chronic anemia, Chronic asthma w/ allergic rhinitis, Chronic Hypoxic and Hypercarbic Respiratory Failure on Chronic Ventilation following w/ Dr. Monsalve, Cerebral Palsy with quadriplegia w/ hx of previous baclofen pump, colostomy, chronic catheter, frequent difficulties with aspiration, G-J tube in place, Seizure disorder, Hx PE eventually transition to Lovenox with associated significant thrombocytopenia following with hematology prior who presents to [facility] ED on 09/03/2024 for planned respite care as his father was hospitalized and his mother necessitates upcoming surgery with per report plan 4 day respite admission. #1. Respite care admission with underlying significant spastic quadriplegia with cerebral palsy with chronic hypoxic and hypercarbic respiratory failure with tracheostomy, ventilator dependent with chronic dysphagia status post PEG tube placement: Will admit to the ICU as an MS status for more aggressive care given complicated history, will continue routine ostomy care, barrier cream as needed, maintain on aspiration precautions, continue home tube feed per home regimen, continue aggressive pulmonary toileting regimen in addition to pulmonary recommended Mucinex, Singulair, Zyrtec as well as DuoNeb therapies with attempt maintain oxygen saturation 93% or higher, will continue patient home baclofen as well as Ativan as needed regimen in addition to metoclopramide with his tube feeds, continue home vent settings, continue chronic [place]in. #2. Chronic normocytic anemia with history of previous GI bleeds: Most recent hemoglobin noted 08/22/2024 with hemoglobin 10.1, MCV 85.3, baseline hemoglobin 9-10, stable, will obtain upon admission and defer further labs unless necessary. Will maintain on PPI. #3. Seizure disorder: Will continue patient phenobarbital and gabapentin regimen. #4. History of VTE: Patient with previous history of DVT, PE however had significant issues with thrombocytopenia eventually transition to Lovenox and completed therapy, will maintain on SCDs given [facility] care admission. If any concerns arise certainly may transition to chemoprophylaxis. #5. Chronic asthma with allergic rhinitis: Will continue oxygen supplementation for chronic regimen as noted above, will maintain on home inhaler regimen with as needed breakthrough albuterol if necessary, will continue patient's montelukast, cetirizine home regimen. #6. GERD: Will maintain on patient PPI. #7. Hypotestosteronism, hypogonadism: Will continue patient home testosterone topical application. #8. DVT prophylaxis: Given this is respite care will defer prophylaxis and attempt SCDs only if patient willing to tolerate. #9. CODE STATUS: Full code. Charges/Coding Visit Charges Inpatient E&M: 66011 Init Hosp L2
--- OUTSIDE RECORDS SUMMARY | 2024-09-03 14:04 | XMS RPT_ITS | CCD ---
Author Organization [facility] Care Team Providers Care Freezing Room Worker Name Role Phone Aurora VARGAS, Luis Cooley Unavailable DeFinis, Harumi Y Unavailable Unavailable Coreen, RN, Bella Cooley Unavailable Unavailgalo Waite MD, Maury Anthony Unavailable Marco ESPINO, Chente Perez Unavailable DeFinis, Harumi Y Unavailable Unavailable Trenton, Harumi Y Unavailable Unavailable Dr. Chente Conn Primary Care Provider Dr. Chente Conn Referring Provider Vidhya PLATEMAKER, PLATEMAKER-C Valarie Attending Provider [phone] Dr. Maury Waite Attending Provider Dr. Chente Conn Primary Care Provider Dr. Chente Conn Referring Provider Dr. Jacek Monsalve Attending Provider Dr. Chente Conn Primary Care Provider Dr. Chente Conn Referring Provider Dr. Maury Waite Attending Provider MD Dayo Jo Emergency Provider [phone] Cindy Alexandre Admit Provider Dr. Cindy Alexandre Other Provider Dr. Jacek Monsalve Other Provider Dr. Yovanny Moreira Attending Provider Dr. Yovanny Moreira Other Provider Dr. Armando Plaza Other Provider Dr. John Tolentino Other Provider Unavailab pio Kee PLATEMAKER, PLATEMAKER-C Valarie Other Provider Dr. Lucia Dillard Other Provider Dr. Fiona Echavarria Other Provider Dr. Lucia Dillard Attending Provider Dr. Luis Simon Other Provider Dr. Roberto Hathaway Other Provider Dr. Luis Simon Attending Provider Dr. Barry Young Attending Provider Dr. Barry Young Other Provider Dr. Chente Conn Primary Care Provider Dr. Cindy Alexandre Referring Provider Dr. Jacek Monsalve Attending Provider Dr. Barry Young Referring Provider Dr. Chente Conn Referring Provider Vidhya PLATEMAKER, PLATEMAKER-C Valarie Attending Provider Dr. Chente Conn Primary Care Provider Dr. Maury Waite Attending Provider Dr. Cindy Alexandre Referring Provider MD Dayo Jo Emergency Provider Dr. Cindy Alexandre Admit Provider Dr. Cindy Alexandre Other Provider Dr. Jacek Monsalve Other Provider Dr. Yovanny Moreira Attending Provider Dr. Yovanny Moreira Other Provider Dr. Armando Plaza Other Provider Dr. John Tolentino Other Provider Unavailab pio Kee PLATEMAKER, PLATEMAKER-C Valarie Other Provider Dr. Lucia Dillard Other Provider Dr. Fiona Echavarria Other Provider Dr. Lucia Dillard Attending Provider Dr. Jacek Monsalve Attending Provider Dr. Luis Simon Other Provider Dr. Roberto Hathaway Other Provider Dr. Luis Simon Attending Provider [phone] Dr. Brary Young Referring Provider Dr. Barry Young Attending Provider Dr. Barry Young Other Provider Dr. Chente Conn Referring Provider Vidhya PLATEMAKER, PLATEMAKER-C Valarie Attending Provider Dr. Chente Conn Primary Care Provider Dr. Maury Waite Attending Provider Dr. Cindy Alexandre Referring Provider MD Dayo Jo Emergency Provider Dr. Cindy Alexandre Admit Provider Dr. Cindy Alexandre Other Provider Dr. Jacek Monsalve Other Provider Dr. Yovanny Moreira Attending Provider Dr. Yovanny Moreira Other Provider Dr. Armando Plaza Other Provider Dr. John Tolentino Other Provider Unavailab pio Kee PLATEMAKER, PLATEMAKER-C Valarie Other Provider Dr. Lucia Dillard Other Provider Dr. Fiona Echavarria Other Provider Dr. Lucia Dillard Attending Provider Dr. Jacek Monsalve Attending Provider Dr. Luis Simon Other Provider Dr. Roberto Hathaway Other Provider Dr. Luis Simon Attending Provider Dr. Barry Young Referring Provider Dr. Barry Young Attending Provider Dr. Barry Young Other Provider Dr. Chente Conn Referring Provider Vidhya PLATEMAKER, PLATEMAKER-C Valarie Attending Provider Dr. Dario De La Torre Emergency Provider [facility], Dr. Jaimes Admit Provider [place], Dr. Jaimes Attending Provider Chente Perkins MD Primary Care Provider Dr. Chente Conn Primary Care Provider Dr. Dario De La Torre Emergency Provider [facility], Dr. Jaimes Admit Provider Dr. Fiona Echavarria Attending Provider Dr. Fiona Echavarria Other Provider Dr. Jacek Monsalve Other Provider Dr. Yovanny Moreira Other Provider Dr. Armando Plaza Other Provider Dr. John Tolentino Other Provider Unavailab pio Kee PLATEMAKER, PLATEMAKER-C Valarie Other Provider Dr. Lucia Dillard Attending Provider Dr. Jacek Monsalve Attending Provider Dr. Lucia Dillard Other Provider Dr. Roberto Hathaway Other Provider [phone] Bettie, Dr. Cindy Sharpe Referring Provider [phone] Dr. Luis Simon Other Provider [phone] Dr. Luis Simon Attending Provider [phone] Dr. Yovanny Moreira Attending Provider Bettie, Dr. Cindy Sharpe Other Provider Korheidi, Dr. Cnidy Sharpe Attending Provider Dr. Luis Carlos Henderson Other Provider Dr. Chente Conn Primary Care Provider Dr. Dario De La Torre Emergency Provider [phone] [place], Dr. Jaimes Admit Provider Dr. Fiona Echavarria Attending Provider Dr. Fiona Echavarria Other Provider Dr. Jacek Monsalve Other Provider Dr. Yovanny Moreira Other Provider Dr. Armando Plaza Other Provider Dr. John Tolentino Other Provider Unavailab pio Kee PLATEMAKER, PLATEMAKER-C Valarie Other Provider Dr. Lucia Dillard Attending Provider Dr. Jacek Monsalve Attending Provider Dr. Lucia Dillard Other Provider Dr. Roberto Hathaway Other Provider [phone] Bettie, Dr. Cindy Sharpe Referring Provider Dr. Luis Simon Other Provider [phone] Dr. Luis Simon Attending Provider [phone] Dr. Yovanny Moreira Attending Provider Bettie, Dr. Cindy Sharpe Other Provider Korheidi, Dr. Cindy Sharpe Attending Provider Dr. Luis Carlos Henderson Other Provider CHENTE PERKINS Primary Care Unavailable Yola LEAVITT Attending Unavailable CHENTE PERKINS Primary Care Unavailable Dr. Chente Conn Primary Care Provider Dr. Chente Conn Referring Provider Dr. Jacek Monsalve Attending Provider Dr. Camacho Gonzalez Admit Provider Dr. Camacho Gonzalez Other Provider Dr. Barry Young Other Provider Bettie, Dr. Cindy Sharpe Attending Provider Dr. Barry Young Attending Provider Korheidi, Dr. Cindy Sharpe Other Provider Dr. Michael Posadas Attending Provider Unavailable Dr. Michael Posadas Other Provider Unavailable Dr. Vanessa Roberts Attending Provider Dr. Vanessa Roberts Other Provider Friend, Dr. Aviles Attending Provider Dr. Miky Rahman Emergency Provider Dr. Donte Abebe Admit Provider Dr. Donte Abebe Attending Provider Dr. Donte Abebe Other Provider Dr. Chente Conn Primary Care Provider Dr. Camacho Gonzalez Admit Provider Dr. Camacho Gonzalez Other Provider Dr. Barry Young Other Provider Bettie, Dr. Cindy Sharpe Attending Provider Dr. Barry Young Attending Provider Bettie, Dr. Cindy Sharpe Other Provider Dr. Michael Posadas Attending Provider Unavailable Dr. Michael Posadas Other Provider Unavailable Dr. Vanessa Roberts Attending Provider Dr. Vanessa Roberts Other Provider Dr. Stefan Gregory Attending Provider Dr. Donte Abebe Referring Provider Dr. Miky Rahman Emergency Provider Dr. Donte Abebe Admit Provider [phone] Dr. Donte Abebe Attending Provider Dr. Donte Abebe Other Provider Dr. Chente Conn Primary Care Provider Dr. Camacho Gonzalez Admit Provider Dr. Camacho Gonzalez Other Provider [phone] Barry Young Other Provider Dr. Cindy Alexandre Other Provider Dr. Vanessa Roberts Attending Provider Dr. Vanessa Roberts Other Provider Dr. Michael Posadas Other Provider Unavailable Dr. Chente Conn Referring Provider Vidhya PLATEMAKER, PLATEMAKER-C Valarie Attending Provider [phone] Dr. Chente Conn Primary Care Provider Dr. Chente Conn Primary Care Provider Dr. Stefan Gregory Attending Provider Dr. Donte Abebe Referring Provider Dr. Miky Rahman Emergency Provider Dr. Donte Abebe Admit Provider Dr. Donte Abebe Attending Provider Dr. Donte Abebe Other Provider Dr. Chente Conn Referring Provider Vidhya PLATEMAKER, PLATEMAKER-C Valarie Attending Provider Dr. Siddharth De La Rosa Emergency Provider Dr. Lucia Dillard Admit Provider Dr. Lucia Dillard Attending Provider Dr. Lucia Dillard Other Provider Dr. Krishna Siddiqui Other Provider [phone] Jacek Monsalve Attending Provider Bello, Dr. Read Other Provider Dr. Yovanny Moreira Other Provider Dr. Mckinley Tristan Other Provider Dr. Cari Cavazos Other Provider Dr. Zackary Castro Other Provider Dr. Gris Hewitt Other Provider Dr. Patrice Langley Other Provider Unavailable Dr. Goran Rose Other Provider Dr. Luis Mohr Other Provider Dr. Vito Bright Other Provider Dr. Luther Huggins Other Provider Dr. Camacho Gonzalez Other Provider Dr. Camacho Gonzalez Attending Provider Dr. Chente Conn Primary Care Provider [phone] Dr. Siddharth De La Rosa Emergency Provider Dr. Lucia Dillard Admit Provider Dr. Lucia Dillard Attending Provider Dr. Lucia Dillard Other Provider Dr. Krishna Siddiqui Other Provider Bello, Dr. Read Attending Provider Dr. Jacek Monsalve Other Provider Dr. Yovanny Moreira Other Provider Dr. Mckinley Tristan Other Provider Dr. Cari Cavazos Other Provider Dr. Zackary Castro Other Provider Dr. Gris Hewitt Other Provider Dr. Patrice Langley Other Provider Unavailable Dr. Goran Rose Other Provider [phone] Dr. Luis Mohr Other Provider Dr. Vito Bright Other Provider Dr. Luther Huggins Other Provider Dr. Camacho Gonzalez Referring Provider Dr. Camacho Gonzalez Other Provider Dr. Camacho Gonzalez Attending Provider Dr. Chente Conn Primary Care Provider Dr. Chente Conn Referring Provider Vidhya PLATEMAKER, PLATEMAKER-C Valarie Attending Provider [phone] Dr. Siddharth De La Rosa Emergency Provider Dr. Lucia Dillard Admit Provider Dr. Lucia Dillard Attending Provider Dr. Lucia Dillard Other Provider Dr. Krishna Siddiqui Other Provider [phone] Dr. Jacek Monsalve Attending Provider Dr. Jacek Monsalve Other Provider Dr. Yovanny Moreira Other Provider Dr. Mckinley Tristan Other Provider Dr. Cari Cavazos Other Provider Dr. Zackary Castro Other Provider Dr. Gris Hewitt Other Provider Dr. Patrice Langley Other Provider Unavailable Dr. Goran Rose Other Provider Dr. Luis Mohr Other Provider Dr. Vito Bright Other Provider Dr. Luther Huggins Other Provider Dr. Camacho Gonzalez Referring Provider Dr. Camacho Gonzalez Other Provider Dr. Camacho Gonzalez Attending Provider Dr. Chente Conn MD Primary Care Provider [phone] Senia VARGAS, Dr. Chente De La Paz Attending Provider Dr. Chente Conn MD Referring Provider [phone] Ajay THOMAS, Dr. Clement Attending Provider [phone] Ajay THOMAS, Dr. Clement Emergency Provider [phone] Torey Weber MD Attending Provider Ajay THOMAS, Dr. Clement Referring Provider [phone] Stacie VARGAS, Dr. Pereyra Attending Provider [phone] Roddy Quinones MD Referring Provider [phone] Chente Conn MD Referring Provider Unavailable Ovi PLATEMAKER-C, Amber Cooley Attending Provider Vidhya PLATEMAKER-CValarie Attending Provider Vidhya PLATEMAKER-CValarie Referring Provider Dr. Chente Conn MD Primary Care Provider Dr. Chente Conn MD Attending Provider Dr. Chente Conn MD Referring Provider [phone] King SAM, Dr. Felipe Attending Provider King SAM, Dr. Felipe Other Provider Dr. Chente Conn MD Primary Care Provider Dr. Chente Conn MD Attending Provider Senia VARGAS, Dr. Chente De La Paz Referring Provider King SAM, Dr. Felipe Referring Provider Senia VARGAS, Dr. Chente De La Paz Primary Care Provider Senia VARGAS, Dr. Chente De La Paz Attending Provider Senia VARGAS, Dr. Chente De La Paz Referring Provider Stacie VARGAS, Dr. Pereyra Attending Provider [phone] Stacie VARGAS, Dr. Pereyra Referring Provider [phone] Senia VARGAS, Dr. Chente De La Paz Primary Care Provider [phone] Senia VARGAS, Dr. Chente De La Paz Primary Care Provider [phone] Senia VARGAS, Dr. Chente De La Paz Attending Provider Senia VARGAS, Dr. Chente De La Paz Referring Provider Chente Conn Primary Care Unavailable Matteo Posadas Attending Unavailable Matteo Posadas Referring Unavailable Chente Conn Primary Care Unavailable Vidhya PLATEMAKER, Valarie Attending Unavailable Vidhya PLATEMAKER, Valarie Referring Unavailable Chente Conn Primary Care Unavailable Chente Conn Attending Unavailable Matteo Posadas Consulting Unavailable Chente Conn Referring Unavailable Chente Conn Primary Care Unavailable Torey Huffman Referring Unavailable Torey Huffman Attending Unavailable Chente Conn Primary Care Unavailable Chente Conn Attending Unavailable Chente Conn Referring Unavailable Michael Posadas Admitting Unavailable Lucia Dillard Attending Unavailable Krishna Siddiqui Consulting Unavailable Chente Conn Primary Care Unavailable Niranjan Hale Consulting Unavailable Jacek Monsalve Consulting Unavailable Yovanny Moreira Consulting Unavailable Michael Darden Consulting Unavailable Kalpesh Mayes Consulting Unavailable Mckinley Tristan Consulting Unavailable Cari Cavazos Consulting UnavailZackary Roman Consulting Unavailable Jace Shipley Consulting Unavailable Gris Hewitt Consulting Unavailable AlPatrice bui Consulting Unavailable Sammy, Jovi Consulting Unavailable Goran Rose Consulting Unavailable Onur, Luis Consulting Unavailable Dhepurvi, Chase Consulting Unavailable Tejinder Landin Consulting Unavailable Flaquito Rider Consulting Unavailable Deangelo, Vito Consulting Unavailable Luther Huggins Consulting Unavailable Roberto Hathaway Consulting Unavailable Michael Posadas Consulting Unavailable Senia, Chente De La Paz Primary Care Unavailable Camacho Gonzalez Admitting Unavailable Camacho Gonzalez Attending Unavailable Schinally, Chente E Primary Care Unavailable SchChente cooper Attending Unavailable SchChente cooper Referring Unavailable Schinally, Chente E Primary Care Unavailable Roddy Quinones Attending Unavailable Roddy Quinones Referring Unavailable Schinally, Chente E Primary Care Unavailable SchChente cooper Attending Unavailable Schinally, Chente De La Paz Referring Unavailable Schinally, Chente E Primary Care Unavailable Racquel Moss Attending Unavailable SchChente cooper Attending Unavailable Nathanael, Torey Primary Care Unavailable SchChente cooper Referring Unavailable Torey Huffman Attending Unavailable Nathanael, Torey Primary Care Unavailable Torey Huffman Referring Unavailable Schinally, Chente De La Paz Primary Care Unavailable SchChente cooper Referring Unavailable SchChente cooper Attending Unavailable SchChente cooper Primary Care Unavailable Chente Conn Attending Unavailable SchChente cooper Referring Unavailable Schallison, Chente E Primary Care Unavailable SchChente cooper Attending Unavailable SchChente cooper Referring Unavailable Schallison, Chente E Primary Care Unavailable Roddy Quinones Referring Unavailable Roddy Quinones Attending Unavailable Chente Conn Primary Care Unavailable Chente Conn Attending Unavailable Chente Conn Referring Unavailable Michael Posadas Admitting Unavailable Krishna Siddiqui Consulting Unavailable Schinally, Chente E Primary Care Unavailable Lucia Dillard Attending Unavailable Niranjan Hale Consulting Unavailable Jacek Monsalve Consulting Unavailable Yovanny Moreira Consulting Unavailable Michael Darden Consulting Unavailable Kalpesh Mayes Consulting Unavailable Mckinley Tristan Consulting Unavailable Cari Cavazos Consulting Unavailab Zackary Adame Consulting Unavailable Jace Shipley Consulting Unavailable Gris Hewitt Consulting Unavailable Patrice Langley Consulting Unavailable Samym, Jovi Consulting Unavailable Goran Rose Consulting Unavailable Luis Mohr Consulting Unavailable Chase Mcbride Consulting Unavailable Tejinder Landin Consulting Unavailable Flaquito Rider Consulting Unavailable Vito Bright Consulting Unavailable Luther Huggins Consulting Unavailable Roberto Hathaway Consulting Unavailable Michael Posadas Consulting Unavailable Lucia Dillard Consulting Unavailable Schinner, Chente E Primary Care Unavailable Schinner, Chente E Referring Unavailable Schinner, Chente E Attending Unavailable Michael Posadas Attending Unavailable Michael Posadas Referring Unavailable Yovanny Moreira Attending Unavailable Schinner, Chente E Primary Care Unavailable Matteo Posadas Attending Unavailable Schinner, Chente E Referring Unavailable Schinner, Chente E Primary Care Unavailable Chente Martin Referring Unavailable Amber Dior Attending Unavailable Vidhya PLATEMAKER, Valarie Attending Unavailable Nathanael, Torey Primary Care Unavailable Schinner, Chente E Referring Unavailable Stefan Gregory Attending Unavailable Nathanael, Torey Primary Care Unavailable Torey Huffman Referring Unavailable Schinner, Chente E Referring Unavailable Schinner, Chente E Primary Care Unavailable Schinner, Chente E Attending Unavailable Schinner, Chente E Primary Care Unavailable Schinner, Chente E Attending Unavailable Schinner, Chente E Referring Unavailable Schinner, Chente E Primary Care Unavailable Schinner, Chente E Attending Unavailable Schinner, Chente E Referring Unavailable Schinner, Chente E Primary Care Unavailable Schinner, Chente E Attending Unavailable Schinner, Chente E Referring Unavailable Schinner, Chente E Primary Care Unavailable Torey Weber Attending Unavailable Racquel Moss Referring Unavailable Schinner, Chente E Primary Care Unavailable Roddy Quinones Attending Unavailable Roddy Quinones Referring Unavailable Schinner, Chente E Referring Unavailable Schinner, Chente E Primary Care Unavailable Schinner, Chente E Attending Unavailable Schinner, Chente E Primary Care Unavailable Schinner, Chente E Referring Unavailable Schinner, Chente E Attending Unavailable Allergies Allergy Classification Reported Allergen(s) Allergy Type Date of Onset Reaction(s) Facility (16 sources) acetaminophen / codeine drug allergy 07-04-19 15 [facility] Work Phone: (8 sources) cisapride drug allergy 07-04-[address] [facility] Work Phone: (8 sources) codeine drug allergy 07-04-19 15 [facility] Work Phone: (20 sources) Dust; Translations: [DUST] allergy to substance 07-04-19 15 Other [facility] Work Phone: (8 sources) metroNIDAZOLE drug allergy 07-04-19 15 [facility] Work Phone: (14 sources) morphine; Translations: [ASTRAMORPH] allergy to substance 07-04-19 15 hallucinations [facility] Work Phone: (20 sources) morphine; Translations: [MORPHINE] drug allergy 06-23-19 Other: See Comments [facility] Work Phone: (14 sources) vancomycin; Translations: [VANCOMYCIN HCL] drug allergy 01-08-20 16 [facility] Work Phone: (20 sources) Cisapride; Translations: [cisapride monohydrate] Drug Allergy 05-20-19 [facility] (20 sources) Codeine; Translations: [CODEINE] Drug Allergy 06-23-19 Other: See Comments [facility] (20 sources) metroNIDAZOLE Drug Allergy 05-20-19 22 [facility] (20 sources) house dust allergenic extract Drug Allergy 12-01-19 NEEDS FOLLOW-UP [facility] (6 sources) Cisapride; Translations: [PROPULSID] Drug Allergy 02-08-20 12 [facility] (6 sources) metroNIDAZOLE; Translations: [METRONIDAZOLE HCL] Drug Allergy 05-09-19 15 [facility] Work Phone: (20 sources) Chlorhexidine Drug Allergy 06-23-19 23 [facility] (1 source) Chlorhexidine Drug Allergy 06-16-19 25 [facility] (1 source) Codeine Drug Allergy 06-16-19 25 [facility] (1 source) house dust allergenic extract Drug Allergy 06-16-19 25 [facility] (1 source) metroNIDAZOLE Drug Allergy 06-16-19 25 [facility] Medications Current Medications Medication Drug Class(es) Dates Sig (Normalized) Sig (Original) acetaminophen 32 mg/ml oral suspension (20 sources) Start: 10-24-2022 Acetaminophen 650 mg/20.3 mL suspension Active 650 mg feeding tube 0000,0600,1200,1800 as needed for PAIN October 24, 2022 12:00am Start: 10-24-2022 albuterol 0.83 mg/ml inhalation solution (20 sources) beta2-Adrenergic Agonist Start: 09-25-2020 End: 11-27-2020 take 2.5 mg by inhalation every four hours as needed for wheezing Albuterol Sulfate 2.5 mg /3 mL (0.083 %) solution for nebulization Active 2.5 mg INHALATION Q4H as needed for Sob &/Or Wheezing November 27, 2020 3:20pm Start: 06-29-2018 take 2.5 mg by inhal ation every four hours as needed albuterol (PROVENTIL) 2.5 mg /3 mL (0.083 %) nebulizer solution Use 3 mL via nebulizer every 4 hours as needed for Wheezing/Shortness of Breath. 0 06/29/2018 Active Comment on above: Use 3 mL via nebuliz er every 4 hours as needed for Wheezing/Shortness of Breath. Alum-Mag Hydroxide-Simeth (11 sources) Start: 10-24-2022 Alum-Mag Hydroxide-Simeth Active 5 ML PO 0000,0600,1200,1800 October 23, 2022 11:00pm Start: 10-24-2022 [facility] [place] xide-Simeth Active 5 ML PO 0000,0600,1200,1800 October 24, 2022 12:00am aluminum hydroxide 40 mg/ml / magnesium hydroxide 40 mg/ml / simethicone 4 mg/ml oral suspension (20 sources) Start: 10-24-2022 [facility] [place] xide-Simeth 200-200-20 mg/5 mL suspension Active 5 mL PO 0000,0600,1200,1800 as needed for ANTACID October 24, 2022 12:00am Start: 10-24-2022 [facility] [place] xide-Simeth Active 5 ML PO 0000,0600,1200,1800 October 24, 2022 12:00am Start: 01-11-2021 [facility] [place] xide-Simeth Active 20 ML feeding tube 4 TIMES DAILY January 11, 2021 12:00am baclofen 20 mg oral tablet (20 sources) gamma-Aminobutyric Acid-ergic Agonist Start: 12-10-2022 Baclofen 20 mg tablet Active 20 mg feeding tube EVERY 6 HOURS December 10, 2022 12:00am MUSCLE SPASMS Start: 11-27-2020 End: 12-10-2022 Baclofen 5 mg/5 mL solution Discontinued 4 mg GT 0000,0600,1200,1800 November 27, 2020 3:20pm December 10, 2022 2:18pm Spasticity Start: 05-09-2019 End: 11-27-2020 Baclofen 5 MG/5 ML solution Discontinued 20 mg GT EVERY 6 HOURS May 09, 2019 12:00am November 27, 2020 3:26pm Spasticity Start: 05-09-2019 End: 12-10-2022 Start: 02-04-2018 End: 02-08-2018 take 2 tablets by mouth three times daily Baclofen 10 MG tablet Discontinued 20 mg PO THREE TIMES A DAY February 04, 2018 1:00am February 08, 2018 11:33am Start: 02-04-2018 End: 02-08-2018 take 20 mg by mouth three times daily Baclofen Discontinued 20 MG PO THREE TIMES A DAY February 04, 2018 1:00am February 08, 2018 11:33am Start: 01-12-2014 End: 02-08-2018 Baclofen Discontinued 660 MC G INTRATH Continuous January 12, 2014 10:37pm February 08, 2018 11:33am Start: 01-12-2014 End: 02-08-2018 Baclofen Discontinued 660 MC G INTRATH Continuous January 12, 2014 12:00am February 08, 2018 10:33am Start: 01-12-2014 End: 02-08-2018 Baclofen Discontinued 660 MC G INTRATH Continuous January 12, 2014 1:00am February 08, 2018 11:33am GABLOFEN SOSY 73 4.1 mcg intrath daily BACLOFEN SOLN [id number] Luann Elliott calcium carbonate 250 mg/ml oral suspension (6 sources) Start: 07-09-2020 Calcium Carbon ate Active 500 MG feeding tube DAILY July 09, 2020 12:00am Cetirizine 1 mg/mL solution (7 sources) Start: 09-30-2023 Cetirizine 1 m g/mL solution Active 10 mg feeding tube 1600 480 11 September 30, 2023 11:25am ALLERGIES Start: 09-30-2023 Cetirizine 1 m g/mL solution Active 10 mg feeding tube 1600 480 September 30, 2023 11:25am cholecalciferol 0.01 mg/ml oral solution (20 sources) Vitamin D Start: 03-24-2022 Cholecalcifero l (Vitamin D3) 10 mcg/mL (400 unit/mL) drops Active 15 ug feeding tube 0830 March 24, 2022 1:00am SUPPLEMENT Start: 03-24-2022 Start: 03-24-2022 Cholecalcifero l (Vitamin D3) Active 50 MCG feeding tube DAILY March 24, 2022 1:00am Start: 12-25-2018 End: 10-24-2019 Cholecalciferol (Vitamin D3) 10 MCG/ML drops Discontinued 5 mL GT DAILY December 25, 2018 12:00am October 24, 2019 1:41pm supplement ciprofloxacin 3 mg/ml ophthalmic solution (1 source) Quinolone Antimicrobial Start: 02-24-2022 Ciprofloxacin Hcl Active 1 DRP LEFT EYE Q4H 5 7 February 24, 2022 12:00am administer while awake Cough Assist (20 sources) Start: 12-25-2018 Cough Assist A ctive 1 NMA .Route .[facility] December 25, 2018 2:40pm assist in clearing secretions Inspiratory and Expiratory times of 20-40 seconds with a 1-2 second pause. Start: 12-25-2018 Cough Assist A ctive 1 NMA .Route .[facility] December 25, 2018 2:40pm Inspiratory and Expiratory times of 20-40 seconds with a 1-2 second pause. Start: 12-25-2018 Cough Assist A ctive 1 DOSE .Route .[facility] December 25, 2018 1:40pm Inspiratory and Expiratory times of 20-40 seconds with a 1-2 second pause. Start: 12-25-2018 Cough Assist A ctive 1 DOSE .Route .[facility] December 25, 2018 2:40pm Inspiratory and Expiratory times of 20-40 seconds with a 1-2 second pause. Start: 09-30-2018 End: 12-25-2018 Cough Assist Discontinued September 30, 2018 1:12pm December 25, 2018 2:41pm Inspiratory and Expiratory times of 20-40 seconds with a 1-2 second pause. Start: 09-30-2018 End: 09-30-2018 Cough Assist Discontinued September 30, 2018 12:44pm September 30, 2018 1:12pm Inspiratory and Expiratory times of 20-40 seconds with 1-2 second pause Start: 09-30-2018 End: 09-30-2018 Cough Assist Discontinued 1 0 September 30, 2018 12:00am September 30, 2018 1:12pm Chronic respiratory failure, unspecified whether with hypoxia or hypercapnia Cerebral palsy, unspecified assist with clearing of secretions Inspiratory and Expiratory times of 20-40 seconds with 1-2 second pause Start: 09-30-2018 End: 12-25-2018 Cough Assist Discontinued 1 September 30, 2018 12:00am December 25, 2018 2:41pm Chronic respiratory failure, unspecified whether with hypoxia or hypercapnia Cerebral palsy, unspecified assist in clearing secretions Inspiratory and Expiratory times of 20-40 seconds with a 1-2 second pause. Start: 09-30-2018 End: 09-30-2018 Cough Assist Discontinued September 29, 2018 11:00pm September 30, 2018 12:12pm Inspiratory and Expiratory times of 20-40 seconds with 1-2 second pause Start: 09-30-2018 End: 12-25-2018 Cough Assist Discontinued September 29, 2018 11:00pm December 25, 2018 1:41pm Inspiratory and Expiratory times of 20-40 seconds with a 1-2 second pause. Start: 09-30-2018 End: 09-30-2018 Cough Assist Discontinued September 30, 2018 12:00am September 30, 2018 1:12pm Inspiratory and Expiratory times of 20-40 seconds with 1-2 second pause Start: 09-30-2018 End: 12-25-2018 Cough Assist Discontinued September 30, 2018 12:00am December 25, 2018 2:41pm Inspiratory and Expiratory times of 20-40 seconds with a 1-2 second pause. [id number] 0.3 ml EPINEPHrine 1 mg/ml auto-injector (6 sources) alpha-Adrenergic Agonist, beta-Adrenergic Agonist, Catecholamine Start: 10-24-2019 inject 0.3 mg by intramuscular injection once Epinephrine Active 0.3 MG IM ONCE October 24, 2019 12:00am as a single dose Food Supplemt, Lactose-Reduced (Ensure Original) 0.04-1.05 gram-kcal/mL liquid (7 sources) Start: 04-04-2024 take 1 mL by mouth once daily Food Supplemt, Lactose-Reduced (Ensure Original) 0.04-1.05 gram-kcal/mL liquid Active 1000 mL PO daily April 04, 2024 1:00am continuous g-tube gabapentin 50 mg/ml oral solution (20 sources) Anti-epileptic Agent Start: 09-26-2019 Gabapentin 250 MG/5 ML solution Active 500 mg GT 0000,0600,1200, 1800 September 26, 2019 12:00am SEIZURES Start: 09-26-2019 Gabapentin Act jeanette 500 MG GT 4 TIMES DAILY September 26, 2019 12:00am Start: 09-26-2019 Gabapentin Act jeanette 250 MG GT 4 TIMES DAILY September 26, 2019 12:00am Start: 08-28-2019 Start: 07-14-2018 End: 08-03-2019 Gabapentin 250 MG/5 ML solut ion Discontinued 500 mg GT EVERY 6 HOURS July 14, 2018 12:00am August 03, 2019 12:53pm with baclofen,musclespasm Start: 07-14-2018 End: 08-03-2019 take 100 mg by mouth at bedtime, then take 150 mg by mouth twice daily GABAPENTIN 300 MG/6 ML ORAL LIQUID UD CUP 100 mg at bedtime, 150 mg twice during the day 0 Active Comment on above: Take 6ml four times daily for a week, then 4ml four times daily. Consider decreasing to 2mg four times daily. 100 mg at bedtime, 1 50 mg twice during the day guaiFENesin 40 mg/ml oral solution (20 sources) Start: 04-04-2024 Guaifenesin 200 mg/5 mL liquid Active 2 mg feeding tube 0830 April 04, 2024 2:23pm COUGH/CONGESTION Start: 09-30-2023 End: 04-04-2024 Guaifenesin 200 mg/5 mL liqu id Discontinued 200 mg feeding tube 0830 as needed for COUGH/CONGESTION 118 11 September 30, 2023 11:25am April 04, 2024 2:26pm Start: 09-30-2023 End: 04-04-2024 Guaifenesin 200 mg/5 mL liqu id Discontinued 200 mg feeding tube 0830 as needed for COUGH/CONGESTION September 30, 2023 11:25am April 04, 2024 2:26pm Start: 03-24-2022 End: 09-30-2023 Guaifenesin 200 mg/5 mL liqu id Discontinued 200 mg feeding tube 0830 as needed for COUGH/CONGESTION March 24, 2022 10:16pm September 30, 2023 11:27am Start: 03-24-2022 Guaifenesin Ac tive 200 MG feeding tube EVERY 6 HOURS March 24, 2022 10:16pm Start: 12-19-2021 End: 03-24-2022 Guaifenesin 200 mg/5 mL liqu id Discontinued 400 mg feeding tube EVERY 6 HOURS as needed for Cough 473 11 December 19, 2021 1:52pm March 24, 2022 10:17pm Start: 11-27-2020 End: 12-19-2021 Guaifenesin 200 mg/5 mL liqu id Discontinued 200 mg feeding tube Q4H as needed for Cough November 27, 2020 3:21pm December 19, 2021 1:52pm Start: 09-25-2020 End: 03-24-2022 take 400 mg by mouth every four hours Guaifenesin 200 mg/5 mL liquid Discontinued 400 mg PO Q4H 473 12 September 25, 2020 12:00am November 27, 2020 3:26pm Lactose-Reduced Food With Fi br (20 sources) Start: 11-27-2020 Lactose-Reduce d Food With Fibr Active 1000 ML GT DAILY November 27, 2020 2:22pm Start: 11-27-2020 Lactose-Reduce d Food With Fibr Active 1000 ML GT DAILY November 27, 2020 3:22pm Start: 11-27-2020 Lactose-Reduce d Food With Fibr Active 1000 ML GT DAILY November 27, 2020 2:22pm 50 ml/hr continuous Start: 11-27-2020 Lactose-Reduce d Food With Fibr Active 1000 ML GT DAILY November 27, 2020 3:22pm 50 ml/hr continuous Start: 05-09-2019 End: 11-27-2020 Lactose-Reduced Food With Fi br Discontinued 50 ML GT DAILY May 09, 2019 6:28am November 27, 2020 3:26pm 50 ml/hr continuous Start: 05-09-2019 End: 11-27-2020 Lactose-Reduced Food With Fi br Discontinued 50 ML GT DAILY May 08, 2019 11:00pm November 27, 2020 2:26pm 50 ml/hr continuous Start: 05-09-2019 End: 11-27-2020 Lactose-Reduced Food With Fi br Discontinued 50 ML GT DAILY May 09, 2019 12:00am November 27, 2020 3:26pm 50 ml/hr continuous LORazepam 2 mg/ml oral solution (20 sources) Benzodiazepine Start: 01-04-2024 Lorazepam (Rebeca azepam Intensol) 2 mg/mL concentrate Active 2 mg feeding tube DAILY as needed for agitation January 04, 2024 1:00am Start: 10-24-2022 End: 01-04-2024 inject 1 mg by intramuscular injection once daily as needed Lorazepam (Ativan) 2 mg/mL solution Discontinued 1 mg IM DAILY as needed for AGITATION March 02, 2023 2:18pm January 04, 2024 11:45am via g-tube Start: 10-08-2018 End: 10-24-2022 Lorazepam 1 MG tablet Discontinued 2 mg GT EVERY 8 HOURS as needed for Agitation October 08, 2018 12:00am October 24, 2022 10:37am Start: 10-08-2018 End: 10-24-2022 Lorazepam Discontinued 2 MG GT EVERY 8 HOURS October 08, 2018 12:00am October 24, 2022 10:37am metoclopramide 1 mg/ml oral solution (20 sources) Dopamine-2 Receptor Antagonist Start: 09-16-2018 Metoclopramide Hcl 5 mg/5 mL solution Active 10 mg feeding tube 0830,1600,2100 September 16, 2018 11:23am STOMACH Start: 08-28-2016 take 1 tablet by juany th three times daily METOCLOPRAMIDE HCL 5 MG/5ML SOLN One tablet by mouth three times daily METOCLOPRAMIDE HCL [id number] Maury Waite MD Start: 12-20-2015 End: 09-16-2018 Metoclopramide Hcl 10 MG/10 ML solution Discontinued 5 mg GT THREE TIMES A DAY December 20, 2015 12:00am September 16, 2018 11:23am nausea Start: 12-20-2015 End: 09-16-2018 montelukast 4 mg oral granules (20 sources) Leukotriene Receptor Antagonist Start: 03-02-2023 End: 09-30-2023 take 4 mg by mouth once daily Montelukast (Singulair) 4 mg granules in packet Active 4 mg PO DAILY 90 3 September 30, 2023 11:26am ASTHMA nystatin [id number] unt/ml oral suspension (7 sources) Polyene Antifungal Start: 01-11-2021 Nystatin Ac tive 1 ML BUCCAL 4 TIMES DAILY January 11, 2021 1:00am oxygen concentrator (20 sources) Start: 12-25-2018 oxygen concent rator Active 1 NMA .Route [facility] December 25, 2018 2:40pm second unit, 4 LPM cont all modalities As directed Start: 12-25-2018 oxygen concent rator Active 1 NMA .Route .[facility] December 25, 2018 2:40pm As directed Start: 12-25-2018 oxygen concent rator Active 1 DOSE .Route [facility] December 25, 2018 1:40pm As directed Start: 12-25-2018 oxygen concent rator Active 1 DOSE .Route [facility] December 25, 2018 2:40pm As directed Start: 08-29-2018 End: 12-25-2018 oxygen concentrator Disconti nued 1 August 29, 2018 12:08pm December 25, 2018 2:41pm As directed Start: 08-29-2018 End: 12-25-2018 oxygen concentrator Disconti nued 1 0 August 29, 2018 12:00am December 25, 2018 2:41pm second unit, 4 LPM cont all modalities As directed Start: 08-29-2018 End: 12-25-2018 oxygen concentrator Disconti nued 1 August 28, 2018 11:00pm December 25, 2018 1:41pm As directed Start: 08-29-2018 End: 12-25-2018 oxygen concentrator Disconti nued 1 August 29, 2018 12:00am December 25, 2018 2:41pm As directed PHENobarbital 4 mg/ml oral solution (20 sources) Start: 02-19-2017 Phenobarbital 20 MG/5 ML elixir Active 60 mg GT 0830,2099February 19, 2017 3:54am SEIZURES Start: 02-19-2017 Phenobarbital Active 60 MG GT 5 TIMES DAILY February 19, 2017 3:54am Start: 03-21-2016 End: 02-19-2017 Phenobarbital 20 MG/5 ML Udc Discontinued 60 mg GT TWICE A DAY 0 March 21, 2016 1:00am February 19, 2017 3:54am Start: 03-21-2016 End: 02-19-2017 take 60 mg by mouth twice daily PHENobarbital 10 mg/mL liqd oral liquid (SF) 60 mg twice daily. 0 Active phenobarbital/0. 9 % sod chlor (PHENOBARBITAL IN 0.9 % SOD CHL) 10 mg/mL (1 mL) soln Inject intravenously. 0 Active PHENOBARBITAL 60 MG TABS 60 mg. GT twice daily PHENOBARBITAL [id number] Luann Elliott Comment on above: Inject intravenously . 60 mg twice daily. 60 actuat testosterone 20.25 mg/actuat topical gel (3 sources) Androgen Start: 07-24-2024 Testosterone (Androgel) 20.25 mg/1.25 gram (1.62 %) gel in metered-dose pump Active 1 NMA TOPICAL daily 75 5 July 24, 2024 12:00am apply 1 pump amount over max area of ONE upper arm and shoulder (20 sources) Start: 10-24-2022 Start: 11-27-2020 Start: 05-09-2019 End: 11-27-2020 Start: 12-25-2018 Start: 09-30-2018 End: 09-30-2018 Start: 09-30-2018 End: 12-25-2018 Start: 08-29-2018 End: 12-25-2018 Start: 02-04-2018 End: 10-24-2022 Start: 02-04-2018 Start: 02-04-2018 End: 02-08-2018 Start: 08-03-2015 End: 12-27-2018 Start: 01-12-2014 End: 02-08-2018 Start: 12-12-2012 End: 01-13-2013 Completed/Discontinued Medications Medication Drug Class(es) Dates Sig (Normalized) Sig (Original) 1.56 ml abaloparatide 2 mg/ml pen injector (10 sources) Parathyroid Hormone-Related Peptide Analog Start: 06-15-2024 End: 07-24-2024 Abaloparatide (Tymlos) 80 mcg (3,120 mcg/1.56 mL) pen injector Discontinued 80 ug SC daily 1.56 June 16, 2024 7:22am July 24, 2024 8:02am albuterol 0.833 mg/ml / ipratropium bromide 0.167 mg/ml inhalation solution (20 sources) Anticholinergic, beta2-Adrenergic Agonist Start: 03-02-2023 End: 03-23-2023 take 1 mL by inhalation every four hours as needed for wheezing Ipratropium-Albuter ol 0.5 mg-3 mg(2.5 mg base)/3 mL solution for nebulization Discontinued 3 mL INHALATION EVERY 4 HOURS NEEDED as needed for SOB &/OR WHEEZING 180 6 March 02, 2023 3:06pm Kiah 30th, 2024 3:41pm Cerebral palsy Cerebral palsy, unspecified Start: 03-02-2023 End: 03-23-2023 take 1 mL by inhalation every four hours as needed Ipratropium-Albuterol Discontinued 3 ML INHALATION EVERY 4 HOURS NEEDED 180 March 02, 2023 3:06pm March 23, 2023 3:41pm Start: 03-02-2023 End: 03-23-2023 AMOXICILLIN-POT CLAVULANATE (20 sources) Penicillin-class Antibacterial Start: 08-28-2016 take 1 tablet by mouth twice daily AUGMENTIN 875-125 MG TABS One tablet by mouth twice daily AMOXICILLIN-POT CLAVULANATE [id number] Maury Waite MD Start: 07-21-2016 End: 07-29-2016 take 1 mL by mouth every twelve hours Amoxicillin-Pot Clavulanate 600 MG/5 ML bottle Discontinued 7.5 mL PO Q12H 1 July 21, 2016 12:00am July 29, 2016 10:14am Start: 07-21-2016 End: 07-29-2016 take 1 mL by mouth every twelve hours Amoxicillin-Pot Clavulanate Discontinued 7.5 ML PO Q12H 1 July 21, 2016 12:00am July 29, 2016 10:14am Start: 07-21-2016 End: 07-29-2016 ascorbic acid 100 mg/ml oral solution (20 sources) Vitamin C Start: 12-27-2018 End: 10-24-2022 Ascorbic Acid (Vitamin C) 50 0 MG/5 ML syrup Discontinued 500 mg GT DAILY August 04, 2019 2:09am October 24, 2022 10:32am Check with primary doctor take this medication with the iron supplement ascorbic acid (V ITAMIN C ORAL) Take by mouth once daily. 0 Active Comment on above: Take by mouth once d aily. baclofen (LIORESAL) 10 mg/ml liqd (5 sources) Start: 01-27-2020 baclofen (LIORESAL) 10 mg/ml liqd 2 mL by PEG route four times daily. 480 mL 5 01/27/2020 Active Comment on above: 2 mL by PEG route fo ur times daily. Baclofen Pump (7 sources) Start: 01-12-2014 End: 02-08-2018 Baclofen Pump Discontinued 660 ug INTRATH Continuous January 12, 2014 1:00am February 08, 2018 11:33am spasticity Start: 01-12-2014 End: 02-08-2018 Baclofen Pump Discontinued 6 60 ug INTRATH Continuous January 12, 2014 1:00am February 08, 2018 11:33am betamethasone 0.5 mg/ml topical cream (20 sources) Corticosteroid Start: 05-19-2021 End: 01-06-2022 Betamethasone Dipropionate 0.05 % cream Discontinued 1 NMA TOPICAL TWICE A DAY November 30, 2021 2:38pm January 06, 2022 4:43pm Check with primary doctor Apply sparingly to affected area cefdinir 25 mg/ml oral suspension (20 sources) Cephalosporin Antibacterial Start: 09-13-2016 End: 09-15-2016 Cefdinir 125 MG/5 ML Ml Discontinued 5 mL GT TWICE A DAY September 13, 2016 12:00am September 15, 2016 8:19am Start: 09-13-2016 End: 09-15-2016 Cefdinir Discontinued 5 ML G T TWICE A DAY September 13, 2016 12:00am September 15, 2016 8:19am Start: 09-13-2016 End: 09-15-2016 cetirizine hydrochloride 1 mg/ml oral solution (20 sources) Histamine-1 Receptor Antagonist Start: 10-24-2022 End: 09-30-2023 Cetirizine 1 mg/mL solution Discontinued 10 mg feeding tube 1599October 24, 2022 12:00am September 30, 2023 11:27am ALLERGIES Start: 10-24-2022 Cetirizine Act jeanette 10 MG feeding tube 1600 October 24, 2022 12:00am Start: 10-24-2022 Start: 02-04-2018 End: 09-25-2020 Cetirizine 10 MG tablet Disc ontinued 10 mL GT DAILY February 04, 2018 1:00am September 25, 2020 2:49pm allergies Start: 01-30-2014 End: 09-25-2020 Cetirizine Discontinued 10 M L GT DAILY February 04, 2018 12:00am September 25, 2020 1:49pm Comment on above: Take 1 tablet by juany th once daily. cholecalciferol, vitamin D3, (VITAMIN D3 ORAL) (5 sources) cholecalciferol, vitamin D3, (VITAMIN D3 ORAL) Take by mouth once daily. 0 Active Comment on above: Take by mouth once d aily. COMPOUNDED PRESCRIPTION (5 sources) Start: 07-17-2018 COMPOUNDED PRESCRIPTION Jevity 1.0 at 60 ml/hr x 24 hrs with 100 ml water flush 6 times per day [continuous feeding] 28 Can 15 07/17/2018 Active Comment on above: Jevity 1.0 at 60 ml/ hr x 24 hrs with 100 ml water flush 6 times per day [continuous feeding] dexamethasone 6 mg oral tablet (7 sources) Corticosteroid Start: 01-10-2024 End: 04-04-2024 Dexamethasone 6 mg tablet Discontinued 6 mg feeding tube DAILY 6 6 0 January 10, 2024 1:00am April 04, 2024 2:23pm Dicyclomine (7 sources) Anticholinergic Start: 09-24-2023 End: 01-04-2024 Dicyclomine 10 mg/5 mL solution Discontinued 0 .ROUTE Q8H 473 0 September 24, 2023 12:00am January 04, 2024 11:42am 5ml by GTUBE every 8 hours; Start: 09-24-2023 End: 01-04-2024 Dicyclomine 10 mg/5 mL solut ion Discontinued 0 .ROUTE Q8H 473 September 24, 2023 12:00am January 04, 2024 11:42am 5ml by GTUBE every 8 hours; docusate / sennosides, retirement (14 sources) Start: 08-28-2016 SENNA-DOCUSATE SODIUM TABS as direceted as needed SENNOSIDES-DOCUSATE SODIUM TABS [id number] Maury Waite MD SENNA-DOCUSATE S ODIUM TABS SENNOSIDES-DOCUSATE SODIUM TABS [id number] Rosa Taylor LPN doxazosin 2 mg oral tablet (20 sources) alpha-Adrenergic Willian Start: 07-11-2019 End: 11-30-2021 Doxazosin 2 mg tablet Discontinued 2 mg GT DAILY 30 0 July 11, 2019 11:20am November 30, 2021 2:38pm Start: 03-24-2019 End: 11-30-2021 Doxazosin 2 mg tablet Active 2 mg PO 829November 30, 2021 2:38pm BLOOD PRESSURE Comment on above: Take 2 mg by mouth d aily at bedtime. 0.8 ml enoxaparin sodium 100 mg/ml prefilled syringe (20 sources) Low Molecular Weight Heparin Start: 07-08-2019 End: 10-24-2019 Enoxaparin 80 mg/0.8 mL syringe Discontinued 70 mg SC Q12@0600,1800 August 03, 2019 12:50pm October 24, 2019 1:34pm Start: 07-08-2019 End: 10-24-2019 Start: 06-26-2019 inject 70 mg by subc utaneous injection every twelve hours enoxaparin (LOVENOX) 80 mg/0.8 mL Inject 0.7 mL subcutaneously q 12 HR. 60 Syringe 5 06/26/2019 Active Comment on above: Inject 0.7 mL subcut aneously q 12 HR. esomeprazole 40 mg granules for oral suspension (20 sources) Proton Pump Inhibitor Start: 12-14-19 23 End: 03-23-19 24 take 40 mg by mouth twice daily Esomeprazole Magnesium (Nexium Packet) [address] for susp in packet Discontinued 40 mg PO TWICE A DAY 60 30 2 December 13, 2022 12:00am March 23, 2023 3:52pm ACID REFLUX Start: 11-27-2020 End: 03-23-2023 Esomeprazole Magnesium (Nexi um Packet) [address] for susp in packet Discontinued 40 mg GT TWICE A DAY 180 90 1 December 13, 2022 12:46pm December 13, 2022 1:14pm ACID REFLUX famotidine 20 mg oral tablet (20 sources) Histamine-2 Receptor Antagonist Start: 11-27-2020 End: 12-13-2022 Famotidine (Pepcid) 20 mg tablet Discontinued 20 mg feeding tube 0830 November 27, 2020 12:00am December 13, 2022 12:44pm ACID REFLUX Start: 11-27-2020 End: 12-13-2022 Start: 11-27-2020 Famotidine (Pe pcid) 20 mg tablet Active 20 MG feeding tube WITH LUNCH November 27, 2020 12:00am per NG ferrous sulfate 75 mg/ml ora l solution (20 sources) Start: 12-25-2018 End: 10-24-2022 Ferrous Sulfate 15 MG/ML audrey ps Discontinued 75 mg GT DAILY December 25, 2018 12:00am October 24, 2022 10:27am supplement Start: 12-25-2018 End: 10-24-2022 Ferrous Sulfate Discontinued 75 MG GT DAILY December 25, 2018 12:00am October 24, 2022 10:27am ferrous sulfate (IRON ORAL) Take by mouth once daily. 0 Active Comment on above: Take by mouth once d aily. fluconazole 10 mg/ml oral suspension (20 sources) Azole Antifungal Start: 04-26-2020 End: 05-10-2020 Fluconazole 10 MG/ML suspension for reconstitution Discontinued 200 mg GT DAILY 300 14 0 April 26, 2020 1:00am May 09, 2020 12:00am May 10, 2020 12:03am Start: 04-26-2020 End: 05-10-2020 Fluconazole Discontinued 200 MG GT DAILY 300 14 April 26, 2020 1:00am May 10, 2020 12:03am furosemide 8 mg/ml oral solution (20 sources) Loop Diuretic Start: 11-14-2018 End: 12-25-2018 take 40 mg by mouth once daily as needed for edema Furosemide 40 mg/5 mL (8 mg/mL) solution Discontinued 40 mg PO DAILY as needed for edema 500 3 November 17, 2018 9:24am December 25, 2018 2:41pm Start: 10-14-2018 End: 11-14-2018 take 20 mg by mouth once daily Furosemide 10 mg/mL efrain ution Discontinued 20 mg PO DAILY October 14, 2018 5:32pm November 14, 2018 11:24am EDEMA Start: 09-16-2018 End: 10-14-2018 take 40 mg by mouth once daily Furosemide 10 MG/ML efrain ution Discontinued 40 mg PO DAILY October 08, 2018 3:08am October 14, 2018 5:32pm EDEMA Start: 06-28-2018 take 2 mL by mouth once daily furosemide (LASIX) 10 mg/mL solution 2 mL by ORAL/FEEDING TUBE route once daily. 60 mL 0 06/28/2018 Active Start: 09-20-2017 End: 09-16-2018 Furosemide 10 mg/mL solution Discontinued 20 mg GT DAILY as needed for EDEMA November 09, 2017 12:00am September 16, 2018 11:37am Start: 09-20-2017 End: 11-14-2018 take 40 mg by mouth once daily Furosemide Discontinued 40 MG PO DAILY October 08, 2018 2:08am October 14, 2018 4:32pm Start: 09-20-2017 End: 11-14-2018 take 20 mg by mouth once daily Furosemide Discontinued 20 MG PO DAILY October 14, 2018 4:32pm November 14, 2018 10:24am Start: 09-09-2017 End: 11-09-2017 take 20 mg by mouth once daily Furosemide 40 mg/5 mL ( 8 mg/mL) solution Discontinued 20 mg PO daily 500 September 09, 2017 12:00am November 09, 2017 1:23pm Start: 09-09-2017 End: 11-09-2017 Start: 09-07-2017 End: 09-09-2017 take 1 tablet by mouth once daily Furosemide (Lasix) 20 mg tablet Discontinued 20 mg PO daily 90 September 07, 2017 12:00am September 09, 2017 3:44pm Comment on above: 2 mL by ORAL/FEEDING TUBE route once daily. lactobacillus (8 sources) take 1 capsule by mouth once daily PROBIATA TABS combination no. 4; 1 cap by mouth daily LACTOBACILLUS [id number] Luann Elliott lactobacillus acidophilus [id number] unt oral capsule (20 sources) Start: 09-20-19 End: 04-04-19 25 Lactobacillus Acidophilus 500 million cell capsule Discontinued 0 .ROUTE DAILY 60 3 September 20, 2023 12:00am April 04, 2024 2:24pm 2 caps by Gtube daily; Start: 02-04-2018 Lactobacillus Acidophilus Active 1 CAP GT DAILY February 04, 2018 5:05pm Start: 02-04-2018 End: 10-24-2022 Lactobacillus Acidophilus Di scontinued 1 CAP GT DAILY February 04, 2018 12:00am October 24, 2022 9:27am Start: 02-04-2018 End: 10-24-2022 Lactobacillus Acidophilus Di scontinued 1 CAP GT DAILY February 04, 2018 1:00am October 24, 2022 10:27am Start: 02-04-2018 Lactobacillus Acidophilus Active 1 CAP GT DAILY February 04, 2018 12:00am Start: 02-04-2018 Lactobacillus Acidophilus Active 1 CAP GT DAILY February 04, 2018 1:00am Lactobacillus Acidophilus 1 EACH capsule (7 sources) Start: 02-04-2018 End: 10-24-2022 Lactobacillus Acidophilus 1 EACH capsule Discontinued 1 NMA GT DAILY February 04, 2018 1:00am October 24, 2022 10:27am gut health Start: 02-04-2018 End: 10-24-2022 Lactobacillus Acidophilus 1 EACH capsule Discontinued 1 NMA GT DAILY February 04, 2018 1:00am October 24, 2022 10:27am Lactose-Reduced Food (Osmoli te 1.2 Benny) 1,000 ML Liquid (20 sources) Start: 12-12-2012 End: 01-13-2013 Lactose-Reduced Food (Osmoli te 1.2 Benny) 1,000 ML Liquid Discontinued 1000 ML PO December 12, 2012 4:53am January 13, 2013 6:44am Start: 12-12-2012 End: 01-13-2013 Lactose-Reduced Food (Osmoli te 1.2 Benny) 1,000 ML Liquid Discontinued 1000 mL PO December 12, 2012 12:00am January 13, 2013 6:44am Start: 12-12-2012 End: 01-13-2013 Lactose-Reduced Food (Osmoli te 1.2 Benny) 1,000 ML Liquid Discontinued 1000 ML PO December 11, 2012 11:00pm January 13, 2013 5:44am Start: 12-12-2012 End: 01-13-2013 Lactose-Reduced Food (Osmoli te 1.2 Benny) 1,000 ML Liquid Discontinued 1000 ML PO December 12, 2012 12:00am January 13, 2013 6:44am Lactose-Reduced Food With Fi br (Jevity 1.5 Benny) 1,000 ML bottle (20 sources) Start: 02-04-2018 End: 02-08-2018 Lactose-Reduced Food With Fi br (Jevity 1.5 Benny) 1,000 ML bottle Discontinued 1000 ML PO 4 TIMES DAILY February 04, 2018 5:05pm February 08, 2018 11:38am Start: 02-04-2018 End: 02-08-2018 Lactose-Reduced Food With Fi br (Jevity 1.5 Benny) 1,000 ML bottle Discontinued 1000 mL PO 4 TIMES DAILY February 04, 2018 1:00am February 08, 2018 11:38am Start: 02-04-2018 End: 02-08-2018 Lactose-Reduced Food With Fi br (Jevity 1.5 Benny) 1,000 ML bottle Discontinued 1000 ML PO 4 TIMES DAILY February 04, 2018 12:00am February 08, 2018 10:38am Start: 02-04-2018 End: 02-08-2018 Lactose-Reduced Food With Fi br (Jevity 1.5 Benny) 1,000 ML bottle Discontinued 1000 ML PO 4 TIMES DAILY February 04, 2018 1:00am February 08, 2018 11:38am Lactose-Reduced Food With Fi br 0.06 gram-1.2 kcal/mL liquid (7 sources) Start: 11-27-2020 End: 04-04-2024 Lactose-Reduced Food With Fi br 0.06 gram-1.2 kcal/mL liquid Discontinued 1000 mL GT DAILY November 27, 2020 3:22pm April 04, 2024 2:24pm NUTRITION Start: 11-27-2020 End: 04-04-2024 Lactose-Reduced Food With Fi br 0.06 gram-1.2 kcal/mL liquid Discontinued 1000 mL GT DAILY November 27, 2020 3:22pm April 04, 2024 2:24pm Lactose-Reduced Food With Fi br 237 ML liquid (7 sources) Start: 05-09-2019 End: 11-27-2020 Lactose-Reduced Food With Fi br 237 ML liquid Discontinued 50 mL GT DAILY May 09, 2019 12:00am November 27, 2020 3:26pm Check with primary doctor 50 ml/hr continuous Start: 05-09-2019 End: 11-27-2020 Lactose-Reduced Food With Fi br 237 ML liquid Discontinued 50 mL GT DAILY May 09, 2019 12:00am November 27, 2020 3:26pm 50 ml/hr continuous lactulose 667 mg/ml oral solution (20 sources) Osmotic Laxative Start: 06-01-2016 End: 12-27-2018 Lactulose 20 GM/30 ML solution Discontinued 30 mL GT TWICE A DAY as needed for Constipation June 01, 2016 10:05am December 27, 2018 10:49am Start: 03-21-2016 End: 06-01-2016 Lactulose 20 GM/30 ML Udc Di scontinued 20 g GT TWICE A DAY 120 0 March 21, 2016 1:00am June 01, 2016 10:06am two ounces (30 ml) one to two times daily Start: 03-21-2016 End: 12-27-2018 Lactulose Discontinued 30 ML GT TWICE A DAY June 01, 2016 9:05am December 27, 2018 9:49am Comment on above: Take 20 g by mouth t wice daily. lansoprazole 30 mg delayed release oral capsule (20 sources) Proton Pump Inhibitor Start: 12-13-19 End: 01-14-20 take 1 capsule by mouth twice daily Lansoprazole (Prevacid) 30 MG capsule Discontinued 30 mg PO TWICE A DAY December 12, 2012 12:00am January 13, 2013 6:41am levoFLOXacin 750 mg oral tablet (20 sources) Quinolone Antimicrobial Start: 12-28-19 End: 01-10-20 take 1 tablet by mouth once daily Levofloxacin 750 MG tablet Discontinued 750 mg PO DAILY 6 December 27, 2018 1:00am January 09, 2019 12:11pm start on 12/28/18 Start: 05-19-2014 End: 05-18-2014 take 1 tablet by mouth once daily Levofloxacin 500 MG tablet Discontinued 500 mg PO DAILY May 19, 2014 12:00am May 18, 2014 1:16pm Start: 05-19-2014 End: 05-18-2014 take 1 tablet by mouth once daily Levofloxacin 500 MG tablet Discontinued 500 mg PO DAILY May 19, 2014 12:00am May 18, 2014 1:16pm Start: 05-19-2014 End: 05-18-2014 take 1 tablet by mouth once daily Levofloxacin 500 MG tablet Discontinued 500 mg PO DAILY May 19, 2014 12:00am May 18, 2014 1:16pm Start: 05-19-2014 End: 05-18-2014 take 1 tablet by mouth once daily Levofloxacin 500 MG tablet Discontinued 500 mg PO DAILY May 19, 2014 12:00am May 18, 2014 1:16pm Start: 05-19-2014 End: 05-18-2014 take 1 tablet by mouth once daily Levofloxacin 500 MG tablet Discontinued 500 mg PO DAILY May 19, 2014 12:00am May 18, 2014 1:16pm Start: 05-19-2014 End: 05-18-2014 take 1 tablet by mouth once daily Levofloxacin 500 MG tablet Discontinued 500 mg PO DAILY May 19, 2014 12:00am May 18, 2014 1:16pm Start: 05-19-2014 End: 05-18-2014 take 1 tablet by mouth once daily Levofloxacin 500 MG tablet Discontinued 500 mg PO DAILY May 19, 2014 12:00am May 18, 2014 1:16pm Start: 05-19-2014 End: 05-18-2014 take 500 mg by mouth once daily Levofloxacin Discontin ued 500 MG PO DAILY May 19, 2014 12:00am May 18, 2014 1:16pm Start: 05-19-2014 End: 05-18-2014 take 500 mg by mouth once daily Levofloxacin Discontin ued 500 MG PO DAILY May 19, 2014 12:00am May 18, 2014 1:16pm Start: 05-19-2014 End: 05-18-2014 take 500 mg by mouth once daily Levofloxacin Discontin ued 500 MG PO DAILY May 18, 2014 11:00pm May 18, 2014 12:16pm Start: 05-19-2014 End: 05-18-2014 take 500 mg by mouth once daily Levofloxacin Discontin ued 500 MG PO DAILY May 18, 2014 11:00pm May 18, 2014 12:16pm Start: 05-19-2014 End: 05-18-2014 Start: 05-19-2014 End: 05-18-2014 take 500 mg by mouth once daily Levofloxacin Discontin ued 500 MG PO DAILY May 18, 2014 11:00pm May 18, 2014 12:16pm Start: 05-19-2014 End: 05-18-2014 take 500 mg by mouth once daily Levofloxacin Discontin ued 500 MG PO DAILY May 18, 2014 11:00pm May 18, 2014 12:16pm Start: 05-19-2014 End: 05-18-2014 take 500 mg by mouth once daily Levofloxacin Discontin ued 500 MG PO DAILY May 18, 2014 11:00pm May 18, 2014 12:16pm Start: 05-19-2014 End: 05-18-2014 take 500 mg by mouth once daily Levofloxacin Discontin ued 500 MG PO DAILY May 18, 2014 11:00pm May 18, 2014 12:16pm Start: 05-19-2014 End: 05-18-2014 take 500 mg by mouth once daily Levofloxacin Discontin ued 500 MG PO DAILY May 19, 2014 12:00am May 18, 2014 1:16pm Start: 05-19-2014 End: 05-18-2014 take 500 mg by mouth once daily Levofloxacin Discontin ued 500 MG PO DAILY May 19, 2014 12:00am May 18, 2014 1:16pm Start: 05-19-2014 End: 05-18-2014 take 500 mg by mouth once daily Levofloxacin Discontin ued 500 MG PO DAILY May 19, 2014 12:00am May 18, 2014 1:16pm Start: 05-19-2014 End: 05-18-2014 take 500 mg by mouth once daily Levofloxacin Discontin ued 500 MG PO DAILY May 19, 2014 12:00am May 18, 2014 1:16pm Start: 05-19-2014 End: 05-18-2014 take 500 mg by mouth once daily Levofloxacin Discontin ued 500 MG PO DAILY May 19, 2014 12:00am May 18, 2014 1:16pm Start: 05-19-2014 End: 05-18-2014 take 500 mg by mouth once daily Levofloxacin Discontin ued 500 MG PO DAILY May 19, 2014 12:00am May 18, 2014 1:16pm Start: 05-19-2014 End: 05-18-2014 take 500 mg by mouth once daily Levofloxacin Discontin ued 500 MG PO DAILY May 19, 2014 12:00am May 18, 2014 1:16pm Start: 05-19-2014 End: 05-18-2014 Start: 05-19-2014 End: 05-18-2014 take 500 mg by mouth once daily Levofloxacin Discontin ued 500 MG PO DAILY May 19, 2014 12:00am May 18, 2014 1:16pm Start: 05-19-2014 End: 05-18-2014 take 500 mg by mouth once daily Levofloxacin Discontin ued 500 MG PO DAILY May 19, 2014 12:00am May 18, 2014 1:16pm Start: 05-19-2014 End: 05-18-2014 Start: 05-19-2014 End: 05-18-2014 take 500 mg by mouth once daily Levofloxacin Discontin ued 500 MG PO DAILY May 18, 2014 11:00pm May 18, 2014 12:16pm Start: 05-19-2014 End: 05-18-2014 take 500 mg by mouth once daily Levofloxacin Discontin ued 500 MG PO DAILY May 18, 2014 11:00pm May 18, 2014 12:16pm Start: 05-19-2014 End: 05-18-2014 take 500 mg by mouth once daily Levofloxacin Discontin ued 500 MG PO DAILY May 18, 2014 11:00pm May 18, 2014 12:16pm Start: 05-19-2014 End: 05-18-2014 take 500 mg by mouth once daily Levofloxacin Discontin ued 500 MG PO DAILY May 18, 2014 11:00pm May 18, 2014 12:16pm Start: 05-19-2014 End: 05-18-2014 take 500 mg by mouth once daily Levofloxacin Discontin ued 500 MG PO DAILY May 19, 2014 12:00am May 18, 2014 1:16pm Start: 05-19-2014 End: 05-18-2014 take 500 mg by mouth once daily Levofloxacin Discontin ued 500 MG PO DAILY May 19, 2014 12:00am May 18, 2014 1:16pm Start: 05-19-2014 End: 05-18-2014 take 500 mg by mouth once daily Levofloxacin Discontin ued 500 MG PO DAILY May 19, 2014 12:00am May 18, 2014 1:16pm Start: 05-19-2014 End: 05-18-2014 take 500 mg by mouth once daily Levofloxacin Discontin ued 500 MG PO DAILY May 19, 2014 12:00am May 18, 2014 1:16pm Start: 05-19-2014 End: 05-18-2014 take 500 mg by mouth once daily Levofloxacin Discontin ued 500 MG PO DAILY May 19, 2014 12:00am May 18, 2014 1:16pm Start: 05-19-2014 End: 05-18-2014 take 500 mg by mouth once daily Levofloxacin Discontin ued 500 MG PO DAILY May 19, 2014 12:00am May 18, 2014 1:16pm Start: 05-19-2014 End: 05-18-2014 take 500 mg by mouth once daily Levofloxacin Discontin ued 500 MG PO DAILY May 19, 2014 12:00am May 18, 2014 1:16pm Start: 05-18-2014 End: 05-18-2014 take 500 mg by mouth once daily Levofloxacin Discontin ued 500 MG PO DAILY May 18, 2014 12:47pm May 18, 2014 1:16pm magnesium hydroxide 80 mg/ml oral suspension (20 sources) Start: 04-25-2020 End: 11-27-2020 Magnesium Hydroxide 30 ML suspension Discontinued 30 mL GT DAILY NEEDED as needed for Constipation April 25, 2020 1:00am November 27, 2020 3:22pm Start: 04-25-2020 End: 11-27-2020 Magnesium Hydroxide Disconti nued 30 ML GT DAILY NEEDED April 25, 2020 1:00am November 27, 2020 3:22pm Start: 04-25-2020 End: 11-27-2020 Start: 08-28-2016 take 35 mL by mouth once daily as needed [facility] MILK OF MAGNESIA SUSP 35 ml by mouth daily as needed MAGNESIUM HYDROXIDE SUSP [id number] Maury Waite MD Start: 12-20-2015 End: 12-27-2018 Magnesium Hydroxide 30 ML vincent spension Discontinued 35 - 50 mL GT DAILY NEEDED as needed for Constipation December 20, 2015 12:00am December 27, 2018 10:59am Start: 12-20-2015 End: 12-27-2018 Magnesium Hydroxide Disconti nued 35 - 50 ML GT DAILY NEEDED December 20, 2015 12:00am December 27, 2018 10:59am Start: 12-20-2015 End: 12-27-2018 magnesium hydrox sheeba (MILK OF MAGNESIA ORAL) Take by mouth as needed. 0 Active take 35 mL by mouth once daily [facility] MILK OF MAGNESIA SUSP 35 ml by mouth daily MAGNESIUM HYDROXIDE SUSP [id number] Luann Elliott Comment on above: Take by mouth as nee ded. NUTRITIONAL SUPPLEMENTS (8 sources) take 237 mL by mouth four times daily JEVITY 1 BENNY LIQD 237 ml by mouth 4 times daily NUTRITIONAL SUPPLEMENTS [id number] Luann Elliott ofloxacin 3 mg/ml ophthalmic solution (8 sources) Quinolone Antimicrobial Start: 01-10-20 16 End: 01-17-20 16 OFLOXACIN 0.3 % SOLN qid OFLOXACIN [id number] Trice Brenner MD ondansetron 4 mg disintegrating oral tablet (20 sources) Serotonin-3 Receptor Antagonist Start: 12-14-19 23 End: 03-23-19 24 take 1 tablet by mouth every eight hours as needed for nausea Ondansetron 4 mg tablet,disintegratin g Discontinued 4 mg PO EVERY 8 HOURS NEEDED as needed for Nausea 20 0 January 16, 2023 1:00am March 23, 2023 3:41pm Start: 05-09-2019 End: 10-24-2022 Ondansetron Hcl 4 MG tablet Discontinued 5 mL feeding tube DAILY as needed for Nausea May 09, 2019 12:00am October 24, 2022 10:31am ONDANSETRON HCL 4 MG/5ML SOLN three times a day prn ONDANSETRON HCL [id number] Rosa Taylor [employer] pantoprazole 40 mg delayed release oral tablet (20 sources) Proton Pump Inhibitor Start: 04-26-2020 End: 11-27-2020 Pantoprazole 40 MG tablet Discontinued 40 mg GT TWICE A DAY 60 0 April 26, 2020 1:00am November 27, 2020 3:23pm Start: 06-29-2018 take 10 mL by mouth twice daily before mealtime pantoprazole (PROTONIX) 2 mg/mL liqd 10 mL by ORAL/FEEDING TUBE route twice daily before meals (0600/1600). 600 mL 0 06/29/2018 Active Start: 03-26-2014 End: 08-28-2016 Pantoprazole 20 MG tablet Discontinued 20 mg GT DAILY 0 0 March 26, 2014 2:44pm August 09, 2014 5:03am Start: 01-13-2013 End: 04-26-2020 Pantoprazole 20 MG tablet Discontinued 20 mL GT TWICE A DAY August 09, 2014 5:02am April 26, 2020 2:52pm stomach Comment on above: 10 mL by ORAL/FEEDIN G TUBE route twice daily before meals (0600/1600). piperacillin 3000 mg / tazobactam 375 mg injection (20 sources) Penicillin-class Antibacterial, beta Lactamase Inhibitor Start: 12-03-2021 End: 01-06-2022 Piperacillin-Tazobactam -Dextrs (Zosyn In Dextrose (Iso-Osm)) 3.375 gram/50 mL piggyback Discontinued 3.375 g IV Q8H 1181.25 7 0 December 03, 2021 12:00am January 06, 2022 4:42pm stop date 12/10/21 dx: pseudomonas pneumonia weekly bmp and cbc. Fax to [phone] routine midline care plecanatide 3 mg oral tablet (20 sources) Start: 04-25-2020 End: 04-05-2024 Plecanatide 3 mg tablet Discontinued 3 mg GT 0830 November 27, 2020 3:23pm April 05, 2024 5:06pm BOWELS polyethylene glycol 3350 32381 mg powder for oral solution (20 sources) Osmotic Laxative Start: 12-27-2018 End: 05-09-2019 Polyethylene Glycol 3350 17 GM packet Discontinued 17 g GT Q12H 0 0 December 27, 2018 10:59am May 09, 2019 6:35am constipation Start: 06-29-2018 polyethylene g lycol 3350 (MIRALAX, GLYCOLAX) 17 gram packet 1 Packet by PEG route once daily. 0 06/29/2018 Active Start: 08-30-2015 End: 12-27-2018 Polyethylene Glycol 3350 17 GM packet Discontinued 17 g GT DAILY August 30, 2015 12:00am December 27, 2018 10:59am constipation Start: 08-30-2015 End: 05-09-2019 Comment on above: 1 Packet by PEG rout e once daily. POLYETHYLENE GLYCOL 3350 (8 sources) MIRALAX POWD 17g m q d POLYETHYLENE GLYCOL 3350 [id number] Rosa Taylor [employer] potassium chloride 1.33 meq/ml oral solution (20 sources) Start: 02-04-2018 End: 12-25-2018 take 15 mEq by mouth once daily as needed Potassium Chloride 20 mEq/15 mL liquid Discontinued 15 meq PO DAILY as needed for WITH LASIX 450 12 December 09, 2018 9:31am December 25, 2018 2:41pm Start: 09-19-2015 End: 09-19-2015 take 20 mEq by mouth twice daily Potassium Chloride 20 MEQ/15 ML Udc Discontinued 20 meq PO TWICE A DAY 14 0 September 19, 2015 12:00am September 19, 2015 11:54am Start: 09-19-2015 End: 09-19-2015 Comment on above: 15 mEq by PEG/JET ro pilot point once daily. rifAXIMin 550 mg oral tablet (7 sources) Rifamycin Antibacterial Start: 09-20-2023 End: 01-04-2024 Rifaximin (Xifaxan) 550 mg tablet Discontinued 0 PO THREE TIMES A DAY 1320 0 September 20, 2023 12:00am January 04, 2024 11:48am Xifaxan 20mg/ml via peg tube TID for 14 days Senna/Docusate Sodium (20 sources) Start: 08-03-2015 End: 12-27-2018 Senna/Docusate Sodium Discontinued 5 ML GT DAILY August 03, 2015 9:11am December 27, 2018 10:53am Start: 08-03-2015 End: 12-27-2018 Senna/Docusate Sodium Discon tinued 5 ML GT DAILY August 02, 2015 11:00pm December 27, 2018 9:53am Start: 08-03-2015 End: 12-27-2018 Senna/Docusate Sodium Discon tinued 5 ML GT DAILY August 03, 2015 12:00am December 27, 2018 10:53am Senna/Docusate Sodium tablet (7 sources) Start: 08-03-2015 End: 12-27-2018 Senna/Docusate Sodium tablet Discontinued 5 mL GT DAILY August 03, 2015 12:00am December 27, 2018 10:53am constipation Start: 08-03-2015 End: 12-27-2018 Senna/Docusate Sodium tablet Discontinued 5 mL GT DAILY August 03, 2015 12:00am December 27, 2018 10:53am sennosides, retirement 1.76 mg/ml oral solution (5 sources) Start: 06-29-2018 take 8.8 mg by mouth every twelve hours as needed sennosides (SENNA) 8.8 mg/5 mL syrup Take 5 mL by mouth twice daily as needed. 0 06/29/2018 Active Comment on above: Take 5 mL by mouth t wice daily as needed. DOCUSATE SODIUM LIQD (14 sources) Start: 08-28-2016 DOCUSATE JOSE DE JESUS M LIQD 200 mg GT daily as needed DOCUSATE SODIUM LIQD [id number] Maury Waite MD DOCUSATE SODIUM LIQD 200 mg GT daily DOCUSATE SODIUM LIQD [id number] Luann Elliott simethicone 66.7 mg/ml oral suspension (20 sources) Start: 11-09-2013 End: 10-24-2022 Simethicone 40 mg/0.6 mL drops,suspension Discontinued 40 mg GT NEEDED as needed for GAS November 27, 2020 3:24pm October 24, 2022 10:31am Start: 11-09-2013 End: 11-27-2020 Simethicone 40 MG/0.6 ML bot tle Discontinued 40 mg GT 4 TIMES DAILY November 09, 2013 12:00am November 27, 2020 3:26pm gas take 120 mg enteral route every six hours as needed simethicone (GENASYME, MYLICON) 40 mg/0.6 mL drops Add 120 mg to J-Tube four times daily as needed. 0 Active Comment on above: Add 120 mg to J-Tube four times daily as needed. sucralfate 100 mg/ml oral suspension (20 sources) Aluminum Complex Start: 12-13-2022 End: 03-23-2023 take 1 mL by mouth twice daily Sucralfate (Carafate) 100 mg/mL suspension Discontinued 10 mL PO TWICE A DAY 1000 1 December 13, 2022 12:00am March 23, 2023 3:47pm ULCERS Start: 09-12-2020 End: 11-27-2020 Sucralfate 1 gram Tablet Dis continued 1 g NG ONE HOURS BEFORE MEALS & BED 60 30 0 September 12, 2020 12:00am November 27, 2020 3:24pm Start: 09-12-2020 End: 11-27-2020 Sucralfate Discontinued 1 GM NG ONE HOURS BEFORE MEALS & BED 60 30 September 12, 2020 12:00am November 27, 2020 3:24pm Start: 04-26-2020 End: 07-31-2020 Sucralfate 1 gram tablet Dis continued 1 g GT 4 TIMES DAILY 30 0 April 29, 2020 2:56pm July 31, 2020 1:46pm Sucralfate 100 mg/mL suspension (7 sources) Start: 09-24-2023 End: 10-01-2023 take 1 mL by mouth three times daily Sucralfate 100 mg/mL suspension Discontinued 10 mL PO THREE TIMES A DAY 210 7 0 September 24, 2023 12:00am September 30, 2023 12:00am October 01, 2023 12:04am Start: 09-24-2023 End: 10-01-2023 take 1 mL by mouth three times daily Sucralfate 100 mg/mL suspension Discontinued 10 mL PO THREE TIMES A DAY 210 7 September 24, 2023 12:00am September 30, 2023 12:00am [place] 9th, 2024 12:04am vancomycin 125 mg oral capsule (20 sources) Glycopeptide Antibacterial Start: 09-01-2015 End: 09-15-2015 Vancomycin (Vancocin) 125 MG capsule Discontinued 125 mg GT EVERY 6 HOURS September 01, 2015 12:00am September 15, 2015 7:51pm TAKE FOUR TIMES A DAY FOR 10 DAYS, THEN ONCE A DAY THEREAFTER Start: 09-01-2015 End: 09-15-2015 Vancomycin (Vancocin) 125 MG capsule Discontinued 125 MG GT EVERY 6 HOURS September 01, 2015 12:00am September 15, 2015 7:51pm TAKE FOUR TIMES A DAY FOR 10 DAYS, THEN ONCE A DAY THEREAFTER End: 01-08-2016 VANCOMYCIN+SYRSPEND SF PH4 S ALF 125mg q 6 hrs x 10 days VANCOMYCIN HCL SUSP [id number] Rosa Taylor [employer] Problems Active Problems Problem Classification Problem Date Documented Da te Episodic/Chronic Abdominal hernia (20 sources) Parastomal hernia; Translations: [Parastomal hernia without obstruction or gangrene] 10-31-2019 Episodic Allergic reactions (20 sources) Contact dermatitis; Translations: [Unspecified contact dermatitis, unspecified cause] Onset: 9 05-27-2021 Episodic Anxiety disorders (11 sources) Anxiety; Translations: [Anxiety disorder, unspecified] 04-13-2023 Chronic Cardiac dysrhythmias (8 sources) Paroxysmal supraventricular tachycardia; Translations: [Supraventricular tachycardia] Onset: 7 08-26-2016 Chronic Cardiac dysrhythmias (20 sources) Bradycardia; Translations: [Bradycardia, unspecified] Onset: 5 03-24-2022 Episodic Coagulation and hemorrhagic disorders (20 sources) Platelet count below reference range; Translations: [Thrombocytopenia, unspecified] 09-13-2020 Chronic Complication of device; implant or graft (20 sources) Colostomy prolapse; Translations: [Other complications of colostomy] Chronic Complication of device; implant or graft (20 sources) Malfunction of gastrostomy tube; Translations: [Displacement of other gastrointestinal prosthetic devices, implants and grafts, initial encounter] 12-31-2019 Episodic Deficiency and other anemia (20 sources) Anemia of chronic disease; Translations: [Anemia in other chronic diseases classified elsewhere] 01-06-2022 Chronic Deficiency and other anemia (20 sources) Iron deficiency anemia; Translations: [Iron deficiency anemia, unspecified] 06-04-2019 Episodic Diabetes mellitus without complication (6 sources) Diabetes mellitus; Translations: [Type 2 diabetes mellitus without complications] Onset: 9 06-18-2018 Chronic Epilepsy; convulsions (5 sources) Epilepsy; Translations: [Epilepsy, unspecified, not intractable, without status epilepticus] Onset: 9 07-17-2018 Chronic Esophageal disorders (8 sources) Gastroesophageal reflux disease; Translations: [Gastro-esophageal reflux disease without esophagitis] Onset: 4 09-15-2023 Chronic Fluid and electrolyte disorders (20 sources) Hyponatremia; Translations: [Hypo-osmolality and hyponatremia] Onset: 5 08-06-2020 Episodic Fracture of lower limb (9 sources) Unspecified fracture of left femur, initial encounter for closed fracture; Translations: [Fracture of left femur] Onset: 5 02-08-2024 Episodic Gastrointestinal hemorrhage (20 sources) Gastrointestinal hemorrhage; Translations: [Gastrointestinal hemorrhage, unspecified] Onset: 5 01-21-2021 Episodic Comment on above: due to esophagitis Heart valve disorders (20 sources) Nonrheumatic mitral (valve) prolapse; Translations: [Mitral valve prolapse] Onset: 7 08-28-2016 Chronic Inflammation, infection of eye (20 sources) Acute conjunctivitis; Translations: [Purulent conjunctivitis] Onset: 6 01-08-2016 Episodic Intestinal infection (20 sources) Clostridium difficile colitis; Translations: [Enterocolitis due to Clostridium difficile, not specified as recurrent] 07-19-2018 Episodic Nausea and vomiting (20 sources) Vomiting; Translations: [Vomiting, unspecified] Onset: 3 01-16-2023 Episodic Nutritional deficiencies (6 sources) Undernutrition; Translations: [Mild protein-calorie malnutrition] Onset: 9 06-01-2018 Chronic Osteoporosis (11 sources) Osteoporosis; Translations: [Age-related osteoporosis without current pathological fracture] Onset: 5 06-26-2024 Chronic Comment on above: History of fragility fracture in femur Other disorders of stomach and duodenum (1 source) Disorder of function of stomach; Translations: [Disease of stomach and duodenum, unspecified] Episodic Other disorders of stomach and duodenum (12 sources) Persistent vomiting; Translations: [Cyclical vomiting syndrome unrelated to migraine] 03-24-2023 Episodic Other disorders of stomach and duodenum (5 sources) Cyclical vomiting syndrome unrelated to migraine; Translations: [Persistent vomiting] 03-25-2023 Episodic Other endocrine disorders (3 sources) Male hypogonadism; Translations: [Testicular hypofunction] 07-27-2024 Chronic Other endocrine disorders (1 source) Testicular hypofunction; Translations: [Testicular hypofunction] Onset: Chronic Other gastrointestinal disorders (1 source) Colostomy present; Translations: [Encounter for attention to colostomy] Chronic Other gastrointestinal disorders (1 source) Encounter for attention to colostomy; Translations: [Attention to colostomy (HCC)] Onset: Chronic Other injuries and conditions due to external causes (20 sources) Aspiration into respiratory tract; Translations: [Unspecified foreign body in respiratory tract, part unspecified causing other injury, initial encounter] 03-24-2022 Episodic Other injuries and conditions due to external causes (5 sources) Unspecified foreign body in respiratory tract, part unspecified causing other injury, initial encounter; Translations: [Foreign body in respiratory tree, unspecified] 03-24-2022 Episodic Other injuries and conditions due to external causes (20 sources) Mucoid impaction of bronchi; Translations: [Unspecified foreign body in bronchus causing asphyxiation, initial encounter] 06-12-2022 Episodic Other lower respiratory disease (20 sources) Dyspnea; Translations: [Dyspnea, unspecified] 01-06-2022 Episodic Other lower respiratory disease (20 sources) Cyanosis; Translations: [Cyanosis] 01-06-2022 Episodic Other lower respiratory disease (20 sources) Hypoxia; Translations: [Hypoxemia] 01-06-2022 Episodic Other lower respiratory disease (8 sources) Dyspnea, unspecified; Translations: [Other respiratory abnormalities] Episodic Other lower respiratory disease (8 sources) Cyanosis; Translations: [Cyanosis] Episodic Other lower respiratory disease (8 sources) Hypoxemia; Translations: [Hypoxemia] Episodic Other lower respiratory disease (18 sources) History of aspiration pneumonia; Translations: [Personal history of pneumonia (recurrent)] 04-13-2023 Episodic Other nervous system disorders (20 sources) H/O: brain disorder; Translations: [Personal history of other diseases of the nervous system and sense organs] 06-12-2022 Episodic Other non-traumatic joint disorders (1 source) Pain in left knee; Translations: [Pain in left knee] Onset: 5 Episodic Other nutritional; endocrine; and metabolic disorders (5 sources) Obese class I; Translations: [Obesity, unspecified] Onset: 9 06-01-2018 Chronic Other nutritional; endocrine; and metabolic disorders (1 source) Lipoprotein deficiency; Translations: [Lipoprotein deficiency] Onset: 5 Chronic Other screening for suspected conditions (not mental disorders or infectious disease) (7 sources) Increased lactic acid level; Translations: [Other specified abnormal findings of blood chemistry] 01-18-2024 Episodic Other upper respiratory disease (7 sources) Tracheostomy present; Translations: [Tracheostomy status] 01-04-2024 Chronic Other upper respiratory disease (1 source) Tracheostomy status; Translations: [Tracheostomy status] Onset: 4 Chronic Paralysis (20 sources) Tetraplegic cerebral palsy; Translations: [Cerebral palsy] Onset: 6 01-08-2016 Chronic Pulmonary heart disease (20 sources) Pulmonary embolism; Translations: [Other pulmonary embolism without acute cor pulmonale] Onset: 0 08-19-2019 Episodic Residual codes; unclassified (1 source) Swelling - edema - symptom; Translations: [Edema, unspecified] Episodic Residual codes; unclassified (20 sources) Edema; Translations: [Edema, unspecified] 05-19-2021 Episodic Respiratory failure; insufficiency; arrest (adult) (20 sources) Chronic respiratory failure; Translations: [Chronic respiratory failure, unspecified whether with hypoxia or hypercapnia] Chronic Respiratory failure; insufficiency; arrest (adult) (20 sources) Respiratory failure; Translations: [Respiratory failure, unspecified, unspecified whether with hypoxia or hypercapnia] Onset: 9 07-17-2018 Episodic Septicemia (except in labor) (20 sources) Sepsis; Translations: [Sepsis, unspecified organism] Onset: 3 03-24-2022 Episodic Unclassified (5 sources) ASA CLASS III Onset: 6 07-15-2005 Unclassified (10 sources) SUMMARY; Translations: [SUMMARY] Onset: 3 02-17-2021 Viral infection (7 sources) Disease caused by 2019-nCoV; Translations: [COVID-19] 01-10-2024 Episodic Past or Other Problems Problem Classification Problem Date Documented Da te Episodic/Chronic Aspiration pneumonitis; food/vomitus (20 sources) Aspiration pneumonia; Translations: [Recurrent aspiration pneumonia] Onset: 5 07-04-2014 Episodic Bacterial infection; unspecified site (5 sources) Clostridioides difficile infection; Translations: [Other bacterial infections of unspecified site] Onset: 5 02-17-2021 Episodic Complications of surgical procedures or medical care (5 sources) Wound dehiscence; Translations: [Disruption of external operation (surgical) wound, not elsewhere classified, initial encounter] Onset: 9 06-01-2018 Episodic Deficiency and other anemia (1 source) Iron deficiency anemia, unspecified; Translations: [Iron deficiency anemia, unspecified] Onset: Episodic Epilepsy; convulsions (6 sources) Seizure; Translations: [Unspecified convulsions] Onset: 3 02-17-2021 Episodic Fever of unknown origin (20 sources) Hyperpyrexia; Translations: [Fever, unspecified] Onset: 3 03-24-2022 Episodic Gastritis and duodenitis (5 sources) Acute gastritis; Translations: [Acute gastritis without bleeding] Onset: 3 Episodic Immunizations and screening for infectious disease (8 sources) Infectious disease carrier; Translations: [Carrier of other intestinal infectious diseases] Onset: 6 01-08-2016 Episodic Other aftercare (8 sources) Encounter for adjustment and management of vascular access device; Translations: [Encounter for adjustment and management of vascular access device] Onset: 7 05-27-2016 Episodic Other aftercare (5 sources) Drug therapy finding; Translations: [Other long-term (current) drug therapy] Onset: 5 02-17-2021 Episodic [...] other nonspecific skin eruption] Onset: 3 Episodic Pathological fracture (1 source) Pathological fracture, unspecified femur, initial encounter for fracture; Translations: [Pathological fracture, unspecified femur, initial encounter for fracture] Onset: 5 Episodic Pneumonia (except that caused by tuberculosis or sexually transmitted disease) (20 sources) Pneumonia due to Pseudomonas; Translations: [Pneumonia due to Pseudomonas] Onset: 4 Episodic Residual codes; unclassified (5 sources) Tube feeding diet; Translations: [Other specified health status] Onset: 5 02-17-2021 Episodic Unclassified (6 sources) Localized edema; Translations: [Localized edema] Onset: 7 08-28-2016 Episodic Results Test Name Value Interpretation Reference Range Facility Absolute lymphocyte countOrd ered By: Chente Conn on 08-22-2024 Lymphocytes Auto (Unsp spec) [#/Vol] 1.17 10*3/uL 0.83-4.51 [facility] Absolute neutrophil countOrd ered By: Chente Conn on 08-22-2024 Neutrophils (Bld) [#/Vol] 2.1 10*3/uL 2.0-7.7 [facility] Anion gap in Serum or Plasma Ordered By: Chente Conn on 08-22-2024 Anion gap [Moles/Vol] 9 mmol/L 5-15 [facility] Automated lymphocyte count a s percentage of total leukocytesOrdered By: Chente Conn on 08-22-2024 Lymphocytes/100 WBC Auto (Unsp spec) 31.3 % 19-41 [facility] BUN/creatinine ratioOrdered By: Chente Conn on 08-22-2024 Urea nitrogen/Creatinine [Mass ratio] 46.4 mg/mg High 10-20 [facility] Basophil percentageOrdered B y: Chente Conn on 08-22-2024 Basophils/100 WBC (Bld) 0.0 % 0-1 [facility] Carbon dioxide, total [Moles /volume] in Central venous bloodOrdered By: Chente Conn on 08-22-2024 CO2 [Moles/Vol] 28.9 mmol/L 21.0-32.0 [facility] Chloride assayOrdered By: Areli Conn on 08-22-2024 Chloride [Moles/Vol] 99 mmol/L 98-108 [facility] Eosinophil percentageOrdered By: Chente Conn on 08-22-2024 Eosinophils/100 WBC (Bld) 4.5 % 0-5 [facility] Erythrocyte distribution wid th ratioOrdered By: Chente Conn on 08-22-2024 Erythrocyte distribution width (RBC) [Ratio] 16.3 % High 11.6-14.6 [facility] Erythrocyte distribution wid th standard deviationOrdered By: Chente Conn on 08-22-2024 Erythrocyte distribution width (RBC) [Ratio] 49.5 fl High 35.1-43.9 [facility] Glomerular filtration rate ( GFR) estimation/1.73 sq m using serum, plasma, or whole bOrdered By: Chente Conn on 08-22-2024 GFR/1.73 sq M.predicted among non-blacks MDRD (S/P/Bld) [Vol rate/Area] 167 mL/min/{1.73_m2} >60 [facility] Comment on above: mL/min/1.73m2 CKD-EP I Creatinine Equation (2020) Hematocrit Auto (Bld) [Volum e fraction]Ordered By: Chente Conn on 08-22-2024 Hematocrit (Bld) [Volume fraction] 31.8 % Low 40-54 [facility] Hemoglobin measurementOrdere d By: Chente Conn on 08-22-2024 Hemoglobin (Bld) [Mass/Vol] 10.1 g/dL Low 13.0-16.5 [facility] Immature granulocytes/100 WB C Auto (Bld)Ordered By: Chente Conn on 08-22-2024 Immature granulocytes/100 WBC (Bld) 0.500 % 0.0-0.9 [facility] Comment on above: IG% - Immature Granu locytes (promyelocytes, myelocytes and metamyelocytes) > 1% indicates that a LEFT SHIFT is Present. MCV (mean corpuscular volume ) determinationOrdered By: Chente Conn on 08-22-2024 MCV (RBC) [Entitic vol] 85.3 fL 80-94 [facility] Mean corpuscular hemoglobin (MCH) determinationOrdered By: Chente Conn on 08-22-2024 MCH (RBC) [Entitic mass] 27.1 pg 27.0-32.0 [facility] Mean corpuscular hemoglobin concentration (MCHC) determinationOrdered By: Chente Conn on 08-22-2024 MCHC (RBC) [Mass/Vol] 31.8 g/dL Low 32-36 [facility] Mean platelet volume determi nationOrdered By: Chente Conn on 08-22-2024 Platelet mean volume (Bld) [Entitic vol] 10.8 fL 6.2-12.0 [facility] Monocyte percentageOrdered B y: Chente Conn on 08-22-2024 Monocytes/100 WBC (Bld) 8.8 % 0-10 [facility] Neutrophil percentageOrdered By: Chente Conn on 08-22-2024 Neutrophils/100 WBC (Bld) 54.9 % 47-70 [facility] Nucleated red blood cell per centageOrdered By: Chente Conn on 08-22-2024 Nucleated RBC/100 WBC (Bld) [Ratio] 0 % 0-5 [facility] Platelet countOrdered By: Areli Conn on 08-22-2024 Platelets (Bld) [#/Vol] 118 10*3/uL Low 150-450 [facility] Potassium measurement (mass/ volume)Ordered By: Chente Conn on 08-22-2024 Potassium (Unsp spec) [Mass/Vol] 4.1 mmol/L 3.3-5.1 [facility] RBC Auto (Bld) [#/Vol]Ordere d By: Chente Conn on 08-22-2024 RBC (Bld) [#/Vol] 3.73 10*6/uL Low 4.6-6.2 [facility] Serum creatinine measurement (mass/volume)Ordered By: Chente Conn on 08-22-2024 Creatinine [Mass/Vol] 0.22 mg/dL Low 0.70-1.20 [facility] Serum glucose measurement (m ass/volume)Ordered By: Chente Conn on 08-22-2024 Glucose [Mass/Vol] 90 mg/dL 70-99 [facility] Serum or plasma calcium jacinta urement (mass/volume)Ordered By: Chente Conn on 08-22-2024 Calcium [Mass/Vol] 8.7 mg/dL 7.6-11.0 [facility] Serum or plasma urea nitroge n measurement (mass/volume)Ordered By: Chente Conn on 08-22-2024 Urea nitrogen [Mass/Vol] 10 mg/dL 4-19 [facility] Sodium levelOrdered By: Chente Conn on 08-22-2024 Sodium [Moles/Vol] 137 mmol/L 133-145 [facility] White blood cell (WBC) count Ordered By: Chente Conn on 08-22-2024 WBC (Bld) [#/Vol] 3.7 10*3/uL Low 4.4-11.0 [facility] Laboratory - Chemistry and C hemistry - challengeOrdered By: Matteo Posadas on 07-27-2024 Testosterone [Mass/Vol] 15.60 ng/dL Low 300-890 [facility] Absolute lymphocyte countOrd ered By: Chente Conn on 07-25-2024 Lymphocytes Auto (Unsp spec) [#/Vol] 2.03 10*3/uL 0.83-4.51 [facility] Absolute neutrophil countOrd ered By: Chente Conn on 07-25-2024 Neutrophils (Bld) [#/Vol] 3.4 10*3/uL 2.0-7.7 [facility] Anion gap in Serum or Plasma Ordered By: Chente Conn on 07-25-2024 Anion gap [Moles/Vol] 14 mmol/L 5-15 [facility] Automated lymphocyte count a s percentage of total leukocytesOrdered By: Chente Conn on 07-25-2024 Lymphocytes/100 WBC Auto (Unsp spec) 31.8 % 19-41 [facility] BUN/creatinine ratioOrdered By: Chente Conn on 07-25-2024 Urea nitrogen/Creatinine [Mass ratio] 24.1 mg/mg High 10-20 [facility] Basophil percentageOrdered B y: Chente Conn on 07-25-2024 Basophils/100 WBC (Bld) 0.2 % 0-1 [facility] Carbon dioxide, total [Moles /volume] in Central venous bloodOrdered By: Chente Conn on 07-25-2024 CO2 [Moles/Vol] 25.0 mmol/L 21.0-32.0 [facility] Chloride assayOrdered By: Areli Conn on 07-25-2024 Chloride [Moles/Vol] 99 mmol/L 98-108 [facility] Eosinophil percentageOrdered By: Chente Conn on 07-25-2024 Eosinophils/100 WBC (Bld) 3.6 % 0-5 [facility] Erythrocyte distribution wid th ratioOrdered By: Chente Conn on 07-25-2024 Erythrocyte distribution width (RBC) [Ratio] 15.6 % High 11.6-14.6 [facility] Erythrocyte distribution wid th standard deviationOrdered By: Chente Conn on 07-25-2024 Erythrocyte distribution width (RBC) [Ratio] 47.2 fl High 35.1-43.9 [facility] Glomerular filtration rate ( GFR) estimation/1.73 sq m using serum, plasma, or whole bOrdered By: Chente Conn on 07-25-2024 GFR/1.73 sq M.predicted among non-blacks MDRD (S/P/Bld) [Vol rate/Area] 148 mL/min/{1.73_m2} >60 [facility] Comment on above: mL/min/1.73m2 CKD-EP I Creatinine Equation (2020) Hematocrit Auto (Bld) [Volum e fraction]Ordered By: Chente Conn on 07-25-2024 Hematocrit (Bld) [Volume fraction] 30.1 % Low 40-54 [facility] Hemoglobin measurementOrdere d By: Chente Conn on 07-25-2024 Hemoglobin (Bld) [Mass/Vol] 9.8 g/dL Low 13.0-16.5 [facility] Immature granulocytes/100 WB C Auto (Bld)Ordered By: Chente Conn on 07-25-2024 Immature granulocytes/100 WBC (Bld) 0.300 % 0.0-0.9 [facility] Comment on above: IG% - Immature Granu locytes (promyelocytes, myelocytes and metamyelocytes) > 1% indicates that a LEFT SHIFT is Present. MCV (mean corpuscular volume ) determinationOrdered By: Chente Conn on 07-25-2024 MCV (RBC) [Entitic vol] 84.1 fL 80-94 [facility] Mean corpuscular hemoglobin (MCH) determinationOrdered By: Chente Conn on 07-25-2024 MCH (RBC) [Entitic mass] 27.4 pg 27.0-32.0 [facility] Mean corpuscular hemoglobin concentration (MCHC) determinationOrdered By: Chente Conn on 07-25-2024 MCHC (RBC) [Mass/Vol] 32.6 g/dL 32-36 [facility] Mean platelet volume determi nationOrdered By: Chente Conn on 07-25-2024 Platelet mean volume (Bld) [Entitic vol] 10.2 fL 6.2-12.0 [facility] Monocyte percentageOrdered B y: Chente Conn on 07-25-2024 Monocytes/100 WBC (Bld) 11.6 % High 0-10 [facility] Neutrophil percentageOrdered By: Chente Conn on 07-25-2024 Neutrophils/100 WBC (Bld) 52.5 % 47-70 [facility] Nucleated red blood cell per centageOrdered By: Chente Conn on 07-25-2024 Nucleated RBC/100 WBC (Bld) [Ratio] 0 % 0-5 [facility] Platelet countOrdered By: Areli Conn on 07-25-2024 Platelets (Bld) [#/Vol] 166 10*3/uL 150-450 [facility] Potassium measurement (mass/ volume)Ordered By: Chente Conn on 07-25-2024 Potassium (Unsp spec) [Mass/Vol] 3.7 mmol/L 3.3-5.1 [facility] RBC Auto (Bld) [#/Vol]Ordere d By: Chente Conn on 07-25-2024 RBC (Bld) [#/Vol] 3.58 10*6/uL Low 4.6-6.2 [facility] Serum creatinine measurement (mass/volume)Ordered By: Chente Conn on 07-25-2024 Creatinine [Mass/Vol] 0.33 mg/dL Low 0.70-1.20 [facility] Serum glucose measurement (m ass/volume)Ordered By: Chente Conn on 07-25-2024 Glucose [Mass/Vol] 113 mg/dL High 70-99 [facility] Serum or plasma calcium jacinta urement (mass/volume)Ordered By: Chente Conn on 07-25-2024 Calcium [Mass/Vol] 8.8 mg/dL 7.6-11.0 [facility] Serum or plasma urea nitroge n measurement (mass/volume)Ordered By: Chente Conn on 07-25-2024 Urea nitrogen [Mass/Vol] 8 mg/dL 4-19 [facility] Sodium levelOrdered By: Chente Conn on 07-25-2024 Sodium [Moles/Vol] 137 mmol/L 133-145 [facility] White blood cell (WBC) count Ordered By: Chente Conn on 07-25-2024 WBC (Bld) [#/Vol] 6.4 10*3/uL 4.4-11.0 [facility] Free testosterone percentage Ordered By: Matteo Posadas on 07-18-2024 Testosterone Free/Testosterone.total [Mass fraction] 5.01 % High 1.50-4.20 [facility] Insulin-like growth factor ( IGF) measurementOrdered By: Matteo Posadas on 07-18-2024 Insulin-like growth factor [Moles/Vol] 109 ng/mL 84-270 [facility] Comment on above: Performed at: [facility] [employer] [id number] Director: Berry Gonzalez PhD, Phone: [phone] at: [facility] [id number] Director: Nicholas Ryan MD, Phone: [phone] Serum or plasma free testost erone measurement (mass/volume)Ordered By: Matteo Posadas on 07-18-2024 Testosterone Free [Mass/Vol] 0.50 ng/dL Low 5.00-21.00 [facility] Testosterone, totalOrdered B y: Matteo Posadas on 07-18-2024 Testosterone [Mass/Vol] 10 ng/dL Low 264-916 [facility] Comment on above: Adult male reference interval is based on a population ofhealthy nonobese males (BMI <30) between 19 and 39 yearsold. Marlen et.al. JCEM 2017,102;6810-8153. PMID:[id number]. Absolute lymphocyte countOrd ered By: Chente Conn on 06-26-2024 Lymphocytes Auto (Unsp spec) [#/Vol] 2.13 10*3/uL 0.83-4.51 [facility] Absolute neutrophil countOrd ered By: Chente Conn on 06-26-2024 Neutrophils (Bld) [#/Vol] 2.7 10*3/uL 2.0-7.7 [facility] Anion gap in Serum or Plasma Ordered By: Chente Conn on 06-26-2024 Anion gap [Moles/Vol] 10 mmol/L 5-15 [facility] Automated lymphocyte count a s percentage of total leukocytesOrdered By: Chente Conn on 06-26-2024 Lymphocytes/100 WBC Auto (Unsp spec) 36.8 % 19-41 [facility] BUN/creatinine ratioOrdered By: Chente Conn on 06-26-2024 Urea nitrogen/Creatinine [Mass ratio] 40.8 mg/mg High 10-20 [facility] Basophil percentageOrdered B y: Chente Conn on 06-26-2024 Basophils/100 WBC (Bld) 0.3 % 0-1 [facility] Bilirubin, totalOrdered By: Chente Conn on 06-26-2024 Bilirubin [Mass/Vol] 0.16 mg/dL 0.00-1.30 [facility] Carbon dioxide, total [Moles /volume] in Central venous bloodOrdered By: Chente Conn on 06-26-2024 CO2 [Moles/Vol] 27.6 mmol/L 21.0-32.0 [facility] Chloride assayOrdered By: Areli Conn on 06-26-2024 Chloride [Moles/Vol] 98 mmol/L 98-108 [facility] Eosinophil percentageOrdered By: Chente Conn on 06-26-2024 Eosinophils/100 WBC (Bld) 6.6 % High 0-5 [facility] Erythrocyte distribution wid th ratioOrdered By: Chente Conn on 06-26-2024 Erythrocyte distribution width (RBC) [Ratio] 15.4 % High 11.6-14.6 [facility] Erythrocyte distribution wid th standard deviationOrdered By: Chente Conn on 06-26-2024 Erythrocyte distribution width (RBC) [Ratio] 46.5 fl High 35.1-43.9 [facility] Glomerular filtration rate ( GFR) estimation/1.73 sq m using serum, plasma, or whole bOrdered By: Chente Conn on 06-26-2024 GFR/1.73 sq M.predicted among non-blacks MDRD (S/P/Bld) [Vol rate/Area] 157 mL/min/{1.73_m2} >60 [facility] Comment on above: mL/min/1.73m2 CKD-EP I Creatinine Equation (2020) Hematocrit Auto (Bld) [Volum e fraction]Ordered By: Chente Conn on 06-26-2024 Hematocrit (Bld) [Volume fraction] 32.2 % Low 40-54 [facility] Hemoglobin measurementOrdere d By: Chente Conn on 06-26-2024 Hemoglobin (Bld) [Mass/Vol] 10.3 g/dL Low 13.0-16.5 [facility] Immature granulocytes/100 WB C Auto (Bld)Ordered By: Chente Conn on 06-26-2024 Immature granulocytes/100 WBC (Bld) 0.300 % 0.0-0.9 [facility] Comment on above: IG% - Immature Granu locytes (promyelocytes, myelocytes and metamyelocytes) > 1% indicates that a LEFT SHIFT is Present. Iron measurement (mass/mass) Ordered By: Chente Conn on 06-26-2024 Iron (Unsp spec) [Mass/Mass] 30 ug/dL Low 65-175 [facility] LH ser/plasOrdered By: Matteo Posadas on 06-26-2024 Lutropin Qn 40.9 m[IU]/mL [facility] Comment on above: FEMALE:Follicular: 1 .9-12.5 mIU/mLMidcycle: 8.7-76.3 mIU/mLLuteal: 0.5-16.9 mIU/mLPost Menopause: 15.9-54.0 mIU/mLMALE:20-70 Years: 1.5-9.3 mIU/mL>70 Years: 3.1-34.6 mIU/mL Laboratory - Chemistry and C hemistry - challengeOrdered By: Chente Conn on 06-26-2024 AST [Catalytic activity/Vol] 12 U/L <38 [facility] MCV (mean corpuscular volume ) determinationOrdered By: Chente Conn on 06-26-2024 MCV (RBC) [Entitic vol] 84.3 fL 80-94 [facility] Mean corpuscular hemoglobin (MCH) determinationOrdered By: Chente Conn on 06-26-2024 MCH (RBC) [Entitic mass] 27.0 pg 27.0-32.0 [facility] Mean corpuscular hemoglobin concentration (MCHC) determinationOrdered By: Chente Conn on 06-26-2024 MCHC (RBC) [Mass/Vol] 32.0 g/dL 32-36 [facility] Mean platelet volume determi nationOrdered By: Chente Conn on 06-26-2024 Platelet mean volume (Bld) [Entitic vol] 10.0 fL 6.2-12.0 [facility] Monocyte percentageOrdered B y: Chente Conn on 06-26-2024 Monocytes/100 WBC (Bld) 9.2 % 0-10 [facility] Neutrophil percentageOrdered By: Chente Conn on 06-26-2024 Neutrophils/100 WBC (Bld) 46.8 % Low 47-70 [facility] No Panel InformationOrdered By: Chente Conn on 06-26-2024 Unsaturated Iron Binding Capacity 216 ug/dL Low 228-428 [facility] Nucleated red blood cell per centageOrdered By: Chente Conn on 06-26-2024 Nucleated RBC/100 WBC (Bld) [Ratio] 0 % 0-5 [facility] Platelet countOrdered By: Areli Conn on 06-26-2024 Platelets (Bld) [#/Vol] 204 10*3/uL 150-450 [facility] Potassium measurement (mass/ volume)Ordered By: Chente Conn on 06-26-2024 Potassium (Unsp spec) [Mass/Vol] 3.8 mmol/L 3.3-5.1 [facility] RBC Auto (Bld) [#/Vol]Ordere d By: Chente Conn on 06-26-2024 RBC (Bld) [#/Vol] 3.82 10*6/uL Low 4.6-6.2 [facility] Serum creatinine measurement (mass/volume)Ordered By: Chente Conn on 06-26-2024 Creatinine [Mass/Vol] 0.27 mg/dL Low 0.70-1.20 [facility] Serum globulin measurementOr dered By: Chente Conn on 06-26-2024 Globulin (S) [Mass/Vol] 4.2 g/dL 2.2-4.2 [facility] Serum glucose measurement (m ass/volume)Ordered By: Chente Conn on 06-26-2024 Glucose [Mass/Vol] 80 mg/dL 70-99 [facility] Serum or plasma alanine salas otransferase (ALT) measurementOrdered By: Chente Conn on 06-26-2024 ALT [Catalytic activity/Vol] 8 U/L <47 [facility] Serum or plasma albumin jacinta urement (mass/volume)Ordered By: Chente Conn on 06-26-2024 Albumin [Mass/Vol] 3.6 g/dL 3.5-5.0 [facility] Serum or plasma albumin/glob ulin mass ratioOrdered By: Chente Conn on 06-26-2024 Albumin/Globulin [Mass ratio] 0.8 {ratio} Low 0.9-2.4 [facility] Serum or plasma alkaline robbi sphatase measurementOrdered By: Chente Conn on 06-26-2024 ALP [Catalytic activity/Vol] 166 U/L High 40-129 [facility] Serum or plasma calcium jacinta urement (mass/volume)Ordered By: Chente Conn on 06-26-2024 Calcium [Mass/Vol] 8.9 mg/dL 7.6-11.0 [facility] Serum or plasma ferritin missy surement (mass/volume)Ordered By: Chente Conn on 06-26-2024 Ferritin [Mass/Vol] 39 ng/mL 37-417 [facility] Serum or plasma iron saturat ion measurement (mass fraction)Ordered By: Chente Conn on 06-26-2024 Iron saturation [Mass fraction] 12.2 % 9-55 [facility] Comment on above: Previous reported re sult: 12.0 %Edited by: KARTHIKEYAN on 06/26/24:9796 AMENDED REPORT 06/26/24 0184 IRON SATURATION previously reported as: 12.0 % Serum or plasma prolactin me asurement (mass/volume)Ordered By: Matteo Posadas on 06-26-2024 Prolactin [Mass/Vol] See comment [facility] Comment on above: TEST RESULTS LIMITSP rolactin 31.5 High ng/mL 3.9-22.7 TESTING PERFORMED AT [facility]. ORIGINAL REPORT ON FILE IN LAB CONTAINS ADDITIONAL TEST SITE INFORMATION. Serum or plasma urea nitroge n measurement (mass/volume)Ordered By: Chente Conn on 06-26-2024 Urea nitrogen [Mass/Vol] 11 mg/dL 4-19 [facility] Sodium levelOrdered By: Chente Conn on 06-26-2024 Sodium [Moles/Vol] 136 mmol/L 133-145 [facility] Total proteinOrdered By: Darwin Conn on 06-26-2024 Protein [Mass/Vol] 7.8 g/dL 5.9-8.4 [facility] White blood cell (WBC) count Ordered By: Chente Conn on 06-26-2024 WBC (Bld) [#/Vol] 5.8 10*3/uL 4.4-11.0 [facility] Absolute lymphocyte countOrd ered By: Chente Conn on 05-29-2024 Lymphocytes Auto (Unsp spec) [#/Vol] 2.21 10*3/uL 0.83-4.51 [facility] Absolute neutrophil countOrd ered By: Chente Conn on 05-29-2024 Neutrophils (Bld) [#/Vol] 3.5 10*3/uL 2.0-7.7 [facility] Anion gap in Serum or Plasma Ordered By: Chente Conn on 05-29-2024 Anion gap [Moles/Vol] 12 mmol/L 5-15 [facility] Automated lymphocyte count a s percentage of total leukocytesOrdered By: Chente Conn on 05-29-2024 Lymphocytes/100 WBC Auto (Unsp spec) 32.7 % 19-41 [facility] BUN/creatinine ratioOrdered By: Chente Conn on 05-29-2024 Urea nitrogen/Creatinine [Mass ratio] 37.5 mg/mg High 10-20 [facility] Basophil percentageOrdered B y: Chente Conn on 05-29-2024 Basophils/100 WBC (Bld) 0.3 % 0-1 [facility] Bilirubin, totalOrdered By: Chente Conn on 05-29-2024 Bilirubin [Mass/Vol] mg/dL 0.00-1.30 [facility] Carbon dioxide, total [Moles /volume] in Central venous bloodOrdered By: Chente Conn on 05-29-2024 CO2 [Moles/Vol] 25.6 mmol/L 21.0-32.0 [facility] Chloride assayOrdered By: Areli Conn on 05-29-2024 Chloride [Moles/Vol] 100 mmol/L 98-108 [facility] Eosinophil percentageOrdered By: Chente Conn on 05-29-2024 Eosinophils/100 WBC (Bld) 5.2 % High 0-5 [facility] Erythrocyte distribution wid th ratioOrdered By: Chente Conn on 05-29-2024 Erythrocyte distribution width (RBC) [Ratio] 16.6 % High 11.6-14.6 [facility] Erythrocyte distribution wid th standard deviationOrdered By: Chente Conn on 05-29-2024 Erythrocyte distribution width (RBC) [Ratio] 51.6 fl High 35.1-43.9 [facility] Glomerular filtration rate ( GFR) estimation/1.73 sq m using serum, plasma, or whole bOrdered By: Chente Conn on 05-29-2024 GFR/1.73 sq M.predicted among non-blacks MDRD (S/P/Bld) [Vol rate/Area] 147 mL/min/{1.73_m2} >60 [facility] Comment on above: mL/min/1.73m2 CKD-EP I Creatinine Equation (2020) Hematocrit Auto (Bld) [Volum e fraction]Ordered By: Chente Conn on 05-29-2024 Hematocrit (Bld) [Volume fraction] 31.8 % Low 40-54 [facility] Hemoglobin measurementOrdere d By: Chente Conn on 05-29-2024 Hemoglobin (Bld) [Mass/Vol] 10.0 g/dL Low 13.0-16.5 [facility] Immature granulocytes/100 WB C Auto (Bld)Ordered By: Chente Conn on 05-29-2024 Immature granulocytes/100 WBC (Bld) 0.300 % 0.0-0.9 [facility] Comment on above: IG% - Immature Granu locytes (promyelocytes, myelocytes and metamyelocytes) > 1% indicates that a LEFT SHIFT is Present. Laboratory - Chemistry and C hemistry - challengeOrdered By: Chente Conn on 05-29-2024 AST [Catalytic activity/Vol] 14 U/L <38 [facility] MCV (mean corpuscular volume ) determinationOrdered By: Chente Conn on 05-29-2024 MCV (RBC) [Entitic vol] 84.8 fL 80-94 [facility] Mean corpuscular hemoglobin (MCH) determinationOrdered By: Chente Conn on 05-29-2024 MCH (RBC) [Entitic mass] 26.7 pg Low 27.0-32.0 [facility] Mean corpuscular hemoglobin concentration (MCHC) determinationOrdered By: Chente Conn on 05-29-2024 MCHC (RBC) [Mass/Vol] 31.4 g/dL Low 32-36 [facility] Mean platelet volume determi nationOrdered By: Chente Conn on 05-29-2024 Platelet mean volume (Bld) [Entitic vol] 10.1 fL 6.2-12.0 [facility] Monocyte percentageOrdered B y: Chente Conn on 05-29-2024 Monocytes/100 WBC (Bld) 9.6 % 0-10 [facility] Neutrophil percentageOrdered By: Chente Conn on 05-29-2024 Neutrophils/100 WBC (Bld) 51.9 % 47-70 [facility] Nucleated red blood cell per centageOrdered By: Chente Conn on 05-29-2024 Nucleated RBC/100 WBC (Bld) [Ratio] 0 % 0-5 [facility] Platelet countOrdered By: Areli Conn on 05-29-2024 Platelets (Bld) [#/Vol] 182 10*3/uL 150-450 [facility] Potassium measurement (mass/ volume)Ordered By: Chente Conn on 05-29-2024 Potassium (Unsp spec) [Mass/Vol] 3.7 mmol/L 3.3-5.1 [facility] RBC Auto (Bld) [#/Vol]Ordere d By: Chente Conn on 05-29-2024 RBC (Bld) [#/Vol] 3.75 10*6/uL Low 4.6-6.2 [facility] Serum creatinine measurement (mass/volume)Ordered By: Chente Conn on 05-29-2024 Creatinine [Mass/Vol] 0.34 mg/dL Low 0.70-1.20 [facility] Serum globulin measurementOr dered By: Chente Conn on 05-29-2024 Globulin (S) [Mass/Vol] 3.7 g/dL 2.2-4.2 [facility] Serum glucose measurement (m ass/volume)Ordered By: Chente Conn on 05-29-2024 Glucose [Mass/Vol] 107 mg/dL High 70-99 [facility] Serum or plasma alanine salas otransferase (ALT) measurementOrdered By: Chente Conn on 05-29-2024 ALT [Catalytic activity/Vol] 11 U/L <47 [facility] Serum or plasma albumin jacinta urement (mass/volume)Ordered By: Chente Conn on 05-29-2024 Albumin [Mass/Vol] 3.5 g/dL 3.5-5.0 [facility] Serum or plasma albumin/glob ulin mass ratioOrdered By: Chente Conn on 05-29-2024 Albumin/Globulin [Mass ratio] 0.9 {ratio} 0.9-2.4 [facility] Serum or plasma alkaline robbi sphatase measurementOrdered By: Chente Conn on 05-29-2024 ALP [Catalytic activity/Vol] 131 U/L High 40-129 [facility] Serum or plasma calcium jacinta urement (mass/volume)Ordered By: Chente Conn on 05-29-2024 Calcium [Mass/Vol] 8.8 mg/dL 7.6-11.0 [facility] Serum or plasma urea nitroge n measurement (mass/volume)Ordered By: Chente Conn on 05-29-2024 Urea nitrogen [Mass/Vol] 13 mg/dL 4-19 [facility] Sodium levelOrdered By: Chente Conn on 05-29-2024 Sodium [Moles/Vol] 137 mmol/L 133-145 [facility] Total proteinOrdered By: Darwin Conn on 05-29-2024 Protein [Mass/Vol] 7.1 g/dL 5.9-8.4 [facility] White blood cell (WBC) count Ordered By: Chente Conn on 05-29-2024 WBC (Bld) [#/Vol] 6.8 10*3/uL 4.4-11.0 [facility] Gram stainOrdered By: Johnny Kee on 05-09-2024 Microscopic observation Gram stain Nom (Unsp spec) [facility] Microbial respiratory cultur eOrdered By: Valarie Kee on 05-09-2024 Microorganism identified Cx Nom (Unsp spec) Pseudomonas aeruginosa Abnormal [facility] Microorganism identified Cx Nom (Unsp spec) Pseudomonas aeruginosa#2 Abnormal [facility] Microorganism identified Cx Nom (Unsp spec) Proteus mirabilis Abnormal [facility] Microorganism identified Cx Nom (Unsp spec)Ordered By: Valarie Kee on 05-09-2024 Respiratory Culture Pseudomonas aeruginosa Abnormal [facility] Respiratory Culture Pseudomonas aeruginosa#2 Abnormal [facility] Respiratory Culture Proteus mirabilis Abnormal [facility] Absolute lymphocyte countOrd ered By: Chente Conn on 05-01-2024 Lymphocytes Auto (Unsp spec) [#/Vol] 2.20 10*3/uL 0.83-4.51 [facility] Absolute neutrophil countOrd ered By: Chente Conn on 05-01-2024 Neutrophils (Bld) [#/Vol] 3.1 10*3/uL 2.0-7.7 [facility] Anion gap in Serum or Plasma Ordered By: Chente Conn on 05-01-2024 Anion gap [Moles/Vol] 10 mmol/L 5-15 [facility] Automated lymphocyte count a s percentage of total leukocytesOrdered By: Chente Conn on 05-01-2024 Lymphocytes/100 WBC Auto (Unsp spec) 35.4 % - [facility] BUN/creatinine ratioOrdered By: Chente Conn on 05-01-2024 Urea nitrogen/Creatinine [Mass ratio] 40.6 mg/mg High 10-20 [facility] Basophil percentageOrdered B y: Chente Conn on 05-01-2024 Basophils/100 WBC (Bld) 0.2 % 0-1 [facility] Carbon dioxide, total [Moles /volume] in Central venous bloodOrdered By: Chente Conn on 05-01-2024 CO2 [Moles/Vol] 27.4 mmol/L 21.0-32.0 [facility] Chloride assayOrdered By: Areli Conn on 05-01-2024 Chloride [Moles/Vol] 98 mmol/L 98-108 [facility] Eosinophil percentageOrdered By: Chente Conn on 05-01-2024 Eosinophils/100 WBC (Bld) 4.7 % 0-5 [facility] Erythrocyte distribution wid th ratioOrdered By: Chente Conn on 05-01-2024 Erythrocyte distribution width (RBC) [Ratio] 16.6 % High 11.6-14.6 [facility] Erythrocyte distribution wid th standard deviationOrdered By: Chente Conn on 05-01-2024 Erythrocyte distribution width (RBC) [Entitic vol] 50.4 fL High 35.1-43.9 [facility] Erythrocyte distribution width (RBC) [Ratio] 50.4 fl High 35.1-43.9 [facility] GFR/1.73 sq M.predicted joey g non-blacks MDRD (S/P/Bld) [Vol rate/Area]Ordered By: Chente Conn on 05-01-2024 Estimated GFR (MDRD) Non-Af Amer 154 >60 [facility] Comment on above: mL/min/1.73m2 CKD-EP I Creatinine Equation (2020) Glomerular filtration rate ( GFR) estimation/1.73 sq m using serum, plasma, or whole bOrdered By: Chente Conn on 05-01-2024 GFR/1.73 sq M.predicted among non-blacks MDRD (S/P/Bld) [Vol rate/Area] 154 mL/min/{1.73_m2} >60 [facility] Comment on above: mL/min/1.73m2 CKD-EP I Creatinine Equation (2020) Hematocrit Auto (Bld) [Volum e fraction]Ordered By: Chente Conn on 05-01-2024 Hematocrit (Bld) [Volume fraction] 33.5 % Low 40-54 [facility] Hemoglobin measurementOrdere d By: Chente Conn on 05-01-2024 Hemoglobin (Bld) [Mass/Vol] 10.5 g/dL Low 13.0-16.5 [facility] Immature granulocytes/100 WB C Auto (Bld)Ordered By: Chente Conn on 05-01-2024 Immature granulocytes/100 WBC (Bld) 0.200 % 0.0-0.9 [facility] Comment on above: IG% - Immature Granu locytes (promyelocytes, myelocytes and metamyelocytes) > 1% indicates that a LEFT SHIFT is Present. Lymphocytes Auto (Unsp spec) [#/Vol]Ordered By: Chente Conn on 05-01-2024 Lymphocytes (Bld) [#/Vol] 2.20 10*3/uL 0.83-4.5 1 [facility] Lymphocytes/100 WBC Auto (Un sp spec)Ordered By: Chente Conn on 05-01-2024 Lymphocytes/100 WBC (Bld) 35.4 % 19-41 [facility] MCV (mean corpuscular volume ) determinationOrdered By: Chente Conn on 05-01-2024 MCV (RBC) [Entitic vol] 82.7 fL 80-94 [facility] Mean corpuscular hemoglobin (MCH) determinationOrdered By: Chente Conn on 05-01-2024 MCH (RBC) [Entitic mass] 25.9 pg Low 27.0-32.0 [facility] Mean corpuscular hemoglobin concentration (MCHC) determinationOrdered By: Chente Conn on 05-01-2024 MCHC (RBC) [Mass/Vol] 31.3 g/dL Low 32-36 [facility] Mean platelet volume determi nationOrdered By: Chente Conn on 05-01-2024 Platelet mean volume (Bld) [Entitic vol] 10.5 fL 6.2-12.0 [facility] Monocyte percentageOrdered B y: Chente Conn on 05-01-2024 Monocytes/100 WBC (Bld) 10.3 % High 0-10 [facility] Neutrophil percentageOrdered By: Chente Conn on 05-01-2024 Neutrophils/100 WBC (Bld) 49.2 % 47-70 [facility] Nucleated red blood cell per centageOrdered By: Chente Conn on 03-10-2025 Nucleated RBC/100 WBC (Bld) [Ratio] 0 % 0-5 [facility] Platelet countOrdered By: Areli Conn on 05-01-2024 Platelets (Bld) [#/Vol] 209 10*3/uL 150-450 [facility] Potassium (Unsp spec) [Mass/ Vol]Ordered By: Chente Conn on 05-01-2024 Potassium [Moles/Vol] 4.3 mmol/L 3.3-5.1 [facility] Potassium measurement (mass/ volume)Ordered By: Chente Conn on 05-01-2024 Potassium (Unsp spec) [Mass/Vol] 4.3 mmol/L 3.3-5.1 [facility] RBC Auto (Bld) [#/Vol]Ordere d By: Chente Conn on 05-01-2024 RBC (Bld) [#/Vol] 4.05 10*6/uL Low 4.6-6.2 [facility] Serum creatinine measurement (mass/volume)Ordered By: Chente Conn on 05-01-2024 Creatinine [Mass/Vol] 0.29 mg/dL Low 0.70-1.20 [facility] Serum glucose measurement (m ass/volume)Ordered By: Chente Conn on 05-01-2024 Glucose [Mass/Vol] 82 mg/dL 70-99 [facility] Serum or plasma calcium jacinta urement (mass/volume)Ordered By: Chente Conn on 05-01-2024 Calcium [Mass/Vol] 8.8 mg/dL 7.6-11.0 [facility] Serum or plasma urea nitroge n measurement (mass/volume)Ordered By: Chente Conn on 05-01-2024 Urea nitrogen [Mass/Vol] 12 mg/dL 4-19 [facility] Sodium levelOrdered By: Chente Conn on 05-01-2024 Sodium [Moles/Vol] 135 mmol/L 133-145 [facility] White blood cell (WBC) count Ordered By: Chente Conn on 05-01-2024 WBC (Bld) [#/Vol] 6.2 10*3/uL 4.4-11.0 [facility] Absolute lymphocyte countOrd ered By: Chente Conn on 04-03-2024 Lymphocytes Auto (Unsp spec) [#/Vol] 2.12 10*3/uL 0.83-4.51 [facility] Absolute neutrophil countOrd ered By: Chente Conn on 04-03-2024 Neutrophils (Bld) [#/Vol] 2.2 10*3/uL 2.0-7.7 [facility] Automated lymphocyte count a s percentage of total leukocytesOrdered By: Chente Conn on 04-03-2024 Lymphocytes/100 WBC Auto (Unsp spec) 41.2 % High 19-41 [facility] Basophil percentageOrdered B y: Chente Conn on 04-03-2024 Basophils/100 WBC (Bld) 0.2 % 0-1 [facility] Blood urea nitrogen (BUN)/cr eatinine ratioOrdered By: Chente Conn on 04-03-2024 Urea nitrogen/Creatinine [Mass ratio] 52.6 mg/mg High 10-20 [facility] Carbon dioxide measurementOr dered By: Chente Conn on 04-03-2024 CO2 [Moles/Vol] 32.0 mmol/L 21.0-32.0 [facility] Chloride measurementOrdered By: Chente oCnn on 04-03-2024 Chloride [Moles/Vol] 102 mmol/L 98-107 [facility] Eosinophil percentageOrdered By: Chente Conn on 04-03-2024 Eosinophils/100 WBC (Bld) 4.9 % 0-5 [facility] Erythrocyte distribution wid th ratioOrdered By: Chente Conn on 04-03-2024 Erythrocyte distribution width (RBC) [Ratio] 15.6 % High 11.6-14.6 [facility] Erythrocyte distribution wid th standard deviationOrdered By: Chente Conn on 04-03-2024 Erythrocyte distribution width (RBC) [Entitic vol] 46.3 fL High 35.1-43.9 [facility] Erythrocyte distribution width (RBC) [Ratio] 46.3 fl High 35.1-43.9 [facility] Estimated glomerular filtrat ion rate (GFR) AmericanOrdered By: Chente Conn on 04-03-2024 Estimated GFR (MDRD) Amer 641 mL/min >60 [facility] Comment on above: GFR Calc Glomerular filtration rate ( GFR) estimationOrdered By: Chente Conn on 04-03-2024 Estimated GFR (MDRD) Non-Af Amer 530 mL/min >60 [facility] Comment on above: Non- GFR Calc GFR/1.73 sq M.predicted among non-blacks MDRD (S/P/Bld) [Vol rate/Area] 530 mL/min/{1.73_m2} >60 [facility] Comment on above: Non- GFR Calc Glucose measurementOrdered B y: Chente Conn on 04-03-2024 Glucose [Mass/Vol] 87 mg/dL 74-106 [facility] Hematocrit Auto (Bld) [Volum e fraction]Ordered By: Chente Conn on 04-03-2024 Hematocrit (Bld) [Volume fraction] 30.9 % Low 40-54 [facility] Hemoglobin measurementOrdere d By: Chente Conn on 04-03-2024 Hemoglobin (Bld) [Mass/Vol] 9.8 g/dL Low 13.0-16.5 [facility] Immature granulocytes/100 WB C Auto (Bld)Ordered By: Chente Conn on 04-03-2024 Immature granulocytes/100 WBC (Bld) 0.200 % 0.0-0.9 [facility] Comment on above: IG% - Immature Granu locytes (promyelocytes, myelocytes and metamyelocytes) > 1% indicates that a LEFT SHIFT is Present. Lymphocytes Auto (Unsp spec) [#/Vol]Ordered By: Chente Conn on 04-03-2024 Lymphocytes (Bld) [#/Vol] 2.12 10*3/uL 0.83-4.5 1 [facility] Lymphocytes/100 WBC Auto (Un sp spec)Ordered By: Chente Conn on 04-03-2024 Lymphocytes/100 WBC (Bld) 41.2 % High 19-41 [facility] MCV (mean corpuscular volume ) determinationOrdered By: Chente Conn on 04-03-2024 MCV (RBC) [Entitic vol] 82.8 fL 80-94 [facility] Mean corpuscular hemoglobin (MCH) determinationOrdered By: Chente Conn on 04-03-2024 MCH (RBC) [Entitic mass] 26.3 pg Low 27.0-32.0 [facility] Mean corpuscular hemoglobin concentration (MCHC) determinationOrdered By: Chente Conn on 04-03-2024 MCHC (RBC) [Mass/Vol] 31.7 g/dL Low 32-36 [facility] Mean platelet volume determi nationOrdered By: Chente Conn on 04-03-2024 Platelet mean volume (Bld) [Entitic vol] 9.8 fL 6.2-12.0 [facility] Monocyte percentageOrdered B y: Chente Conn on 04-03-2024 Monocytes/100 WBC (Bld) 10.9 % High 0-10 [facility] Neutrophil percentageOrdered By: Chente Conn on 04-03-2024 Neutrophils/100 WBC (Bld) 42.6 % Low 47-70 [facility] Nucleated red blood cell per centageOrdered By: Chente Conn on 04-03-2024 Nucleated RBC/100 WBC (Bld) [Ratio] 0 % 0-5 [facility] Platelet countOrdered By: Areli Conn on 04-03-2024 Platelets (Bld) [#/Vol] 170 10*3/uL 150-450 [facility] Potassium measurementOrdered By: Chente Conn on 04-03-2024 Potassium [Moles/Vol] 3.8 mmol/L 3.5-5.1 [facility] RBC Auto (Bld) [#/Vol]Ordere d By: Chente Conn on 04-03-2024 RBC (Bld) [#/Vol] 3.73 10*6/uL Low 4.6-6.2 [facility] Serum anion gap measurementO rdered By: Chente Conn on 04-03-2024 Anion gap [Moles/Vol] 5 mmol/L 5-15 [facility] Serum or plasma calcium jacinta urement (mass/volume)Ordered By: Chente Conn on 04-03-2024 Calcium [Mass/Vol] 8.4 mg/dL Low 8.5-10.1 [facility] Serum or plasma creatinine m easurement (mass/volume)Ordered By: Chente Conn on 04-03-2024 Creatinine [Mass/Vol] 0.21 mg/dL Low 0.70-1.30 [facility] Comment on above: The validity of the calculated GFR & GFRAA in patients over 70 years has not been determined. Clinical correlation is essential. Serum or plasma urea nitroge n measurement (mass/volume)Ordered By: Chente Conn on 04-03-2024 Urea nitrogen [Mass/Vol] 11 mg/dL 7-18 [facility] Sodium levelOrdered By: Chente Conn on 04-03-2024 Sodium [Moles/Vol] 138 mmol/L 136-145 [facility] White blood cell (WBC) count Ordered By: Chente Conn on 04-03-2024 WBC (Bld) [#/Vol] 5.1 10*3/uL 4.4-11.0 [facility] Absolute lymphocyte countOrd ered By: Chente Conn on 03-08-2024 Lymphocytes Auto (Unsp spec) [#/Vol] 1.74 10*3/uL 0.83-4.51 [facility] Absolute neutrophil countOrd ered By: Chente Conn on 03-08-2024 Neutrophils (Bld) [#/Vol] 2.6 10*3/uL 2.0-7.7 [facility] Automated lymphocyte count a s percentage of total leukocytesOrdered By: Chente Conn on 03-08-2024 Lymphocytes/100 WBC Auto (Unsp spec) 33.7 % 19-41 [facility] Basophil percentageOrdered B y: Chente Conn on 03-08-2024 Basophils/100 WBC (Bld) 0.2 % 0-1 [facility] Blood urea nitrogen (BUN)/cr eatinine ratioOrdered By: Chente Conn on 03-08-2024 Urea nitrogen/Creatinine [Mass ratio] 53.2 mg/mg High 10-20 [facility] Carbon dioxide measurementOr dered By: Chente Conn on 03-08-2024 CO2 [Moles/Vol] 31.0 mmol/L 21.0-32.0 [facility] Chloride measurementOrdered By: Chente Conn on 03-08-2024 Chloride [Moles/Vol] 102 mmol/L 98-107 [facility] Eosinophil percentageOrdered By: Chente Conn on 03-08-2024 Eosinophils/100 WBC (Bld) 5.8 % High 0-5 [facility] Erythrocyte distribution wid th ratioOrdered By: Chente Conn on 03-08-2024 Erythrocyte distribution width (RBC) [Ratio] 14.4 % 11.6-14.6 [facility] Erythrocyte distribution wid th standard deviationOrdered By: Chente Conn on 03-08-2024 Erythrocyte distribution width (RBC) [Entitic vol] 43.7 fL 35.1-43.9 [facility] Erythrocyte distribution width (RBC) [Ratio] 43.7 fl 35.1-43.9 [facility] Estimated glomerular filtrat ion rate (GFR) AmericanOrdered By: Chente Conn on 03-08-2024 Estimated GFR (MDRD) Amer 454 mL/min >60 [facility] Comment on above: GFR Calc Glomerular filtration rate ( GFR) estimationOrdered By: Chente Conn on 03-08-2024 Estimated GFR (MDRD) Non-Af Amer 375 mL/min >60 [facility] Comment on above: Non- GFR Calc GFR/1.73 sq M.predicted among non-blacks MDRD (S/P/Bld) [Vol rate/Area] 375 mL/min/{1.73_m2} >60 [facility] Comment on above: Non- GFR Calc Glucose measurementOrdered B y: Chente Conn on 03-08-2024 Glucose [Mass/Vol] 112 mg/dL High 74-106 [facility] Comment on above: Fasting Glucose resu lt from 100 to 125 mg/dL suggests IMPAIRED HOMEOSTASIS per A.D.A. criteria. Hematocrit Auto (Bld) [Volum e fraction]Ordered By: Chente Conn on 03-08-2024 Hematocrit (Bld) [Volume fraction] 31.3 % Low 40-54 [facility] Hemoglobin measurementOrdere d By: Chente Conn on 03-08-2024 Hemoglobin (Bld) [Mass/Vol] 9.7 g/dL Low 13.0-16.5 [facility] Immature granulocytes/100 WB C Auto (Bld)Ordered By: Chente Conn on 03-08-2024 Immature granulocytes/100 WBC (Bld) 0.200 % 0.0-0.9 [facility] Comment on above: IG% - Immature Granu locytes (promyelocytes, myelocytes and metamyelocytes) > 1% indicates that a LEFT SHIFT is Present. Lymphocytes Auto (Unsp spec) [#/Vol]Ordered By: Chente Conn on 03-08-2024 Lymphocytes (Bld) [#/Vol] 1.74 10*3/uL 0.83-4.5 1 [facility] Lymphocytes/100 WBC Auto (Un sp spec)Ordered By: Chente Conn on 03-08-2024 Lymphocytes/100 WBC (Bld) 33.7 % 19-41 [facility] MCV (mean corpuscular volume ) determinationOrdered By: Chente Conn on 03-08-2024 MCV (RBC) [Entitic vol] 83.7 fL 80-94 [facility] Mean corpuscular hemoglobin (MCH) determinationOrdered By: Chente Conn on 03-08-2024 MCH (RBC) [Entitic mass] 25.9 pg Low 27.0-32.0 [facility] Mean corpuscular hemoglobin concentration (MCHC) determinationOrdered By: Chente Conn on 03-08-2024 MCHC (RBC) [Mass/Vol] 31.0 g/dL Low 32-36 [facility] Mean platelet volume determi nationOrdered By: Chente Conn on 03-08-2024 Platelet mean volume (Bld) [Entitic vol] 10.7 fL 6.2-12.0 [facility] Monocyte percentageOrdered B y: Chente Conn on 03-08-2024 Monocytes/100 WBC (Bld) 9.7 % 0-10 [facility] Neutrophil percentageOrdered By: Chente Conn on 03-08-2024 Neutrophils/100 WBC (Bld) 50.4 % 47-70 [facility] Nucleated red blood cell per centageOrdered By: Chente Conn on 03-08-2024 Nucleated RBC/100 WBC (Bld) [Ratio] 0 % 0-5 [facility] Platelet countOrdered By: Areli Conn on 03-08-2024 Platelets (Bld) [#/Vol] 177 10*3/uL 150-450 [facility] Potassium measurementOrdered By: Chente Conn on 03-08-2024 Potassium [Moles/Vol] 3.5 mmol/L 3.5-5.1 [facility] RBC Auto (Bld) [#/Vol]Ordere d By: Chente Conn on 03-08-2024 RBC (Bld) [#/Vol] 3.74 10*6/uL Low 4.6-6.2 [facility] Serum anion gap measurementO rdered By: Chente Conn on 03-08-2024 Anion gap [Moles/Vol] 5 mmol/L 5-15 [facility] Serum or plasma calcium jacinta urement (mass/volume)Ordered By: Chente Conn on 03-08-2024 Calcium [Mass/Vol] 8.3 mg/dL Low 8.5-10.1 [facility] Serum or plasma creatinine m easurement (mass/volume)Ordered By: Chente Conn on 03-08-2024 Creatinine [Mass/Vol] 0.28 mg/dL Low 0.70-1.30 [facility] Comment on above: The validity of the calculated GFR & GFRAA in patients over 70 years has not been determined. Clinical correlation is essential. Serum or plasma urea nitroge n measurement (mass/volume)Ordered By: Chente Conn on 03-08-2024 Urea nitrogen [Mass/Vol] 15 mg/dL 7-18 [facility] Sodium levelOrdered By: Chente Conn on 03-08-2024 Sodium [Moles/Vol] 139 mmol/L 136-145 [facility] White blood cell (WBC) count Ordered By: Chente Conn on 03-08-2024 WBC (Bld) [#/Vol] 5.2 10*3/uL 4.4-11.0 [facility] Absolute neutrophil countOrd ered By: Chente Conn on 02-24-2024 Neutrophils (Bld) [#/Vol] 2.3 10*3/uL 2.0-7.7 [facility] Basophil percentageOrdered B y: Chente Cnon on 02-24-2024 Basophils/100 WBC (Bld) 0.2 % 0-1 [facility] Blood urea nitrogen (BUN)/cr eatinine ratioOrdered By: Chente Conn on 02-24-2024 Urea nitrogen/Creatinine [Mass ratio] 53.8 mg/mg High 10-20 [facility] Carbon dioxide measurementOr dered By: Chente Conn on 02-24-2024 CO2 [Moles/Vol] 29.0 mmol/L 21.0-32.0 [facility] Chloride measurementOrdered By: Chente Conn on 02-24-2024 Chloride [Moles/Vol] 104 mmol/L 98-107 [facility] Eosinophil percentageOrdered By: Chente Conn on 02-24-2024 Eosinophils/100 WBC (Bld) 5.8 % High 0-5 [facility] Erythrocyte distribution wid th ratioOrdered By: Chente Conn on 02-24-2024 Erythrocyte distribution width (RBC) [Ratio] 14.1 % 11.6-14.6 [facility] Erythrocyte distribution wid th standard deviationOrdered By: Chente Conn on 02-24-2024 Erythrocyte distribution width (RBC) [Entitic vol] 43.2 fL 35.1-43.9 [facility] Estimated glomerular filtrat ion rate (GFR) AmericanOrdered By: Chente Conn on 02-24-2024 Estimated GFR (MDRD) Amer 460 mL/min >60 [facility] Comment on above: GFR Calc Glomerular filtration rate ( GFR) estimationOrdered By: Chente Conn on 02-24-2024 Estimated GFR (MDRD) Non-Af Amer 380 mL/min >60 [facility] Comment on above: Non- GFR Calc Glucose measurementOrdered B y: Chente Conn on 02-24-2024 Glucose [Mass/Vol] 102 mg/dL 74-106 [facility] Comment on above: Fasting Glucose resu lt from 100 to 125 mg/dL suggests IMPAIRED HOMEOSTASIS per A.D.A. criteria. Hematocrit Auto (Bld) [Volum e fraction]Ordered By: Chente Conn on 02-24-2024 Hematocrit (Bld) [Volume fraction] 32.6 % Low 40-54 [facility] Hemoglobin measurementOrdere d By: Chente Conn on 02-24-2024 Hemoglobin (Bld) [Mass/Vol] 9.8 g/dL Low 13.0-16.5 [facility] Immature granulocytes/100 WB C Auto (Bld)Ordered By: Chente Conn on 02-24-2024 Immature granulocytes/100 WBC (Bld) 0.200 % 0.0-0.9 [facility] Comment on above: IG% - Immature Granu locytes (promyelocytes, myelocytes and metamyelocytes) > 1% indicates that a LEFT SHIFT is Present. Lymphocytes Auto (Unsp spec) [#/Vol]Ordered By: Chente Conn on 02-24-2024 Lymphocytes (Bld) [#/Vol] 1.93 10*3/uL 0.83-4.5 1 [facility] Lymphocytes/100 WBC Auto (Un sp spec)Ordered By: Chente Conn on 02-24-2024 Lymphocytes/100 WBC (Bld) 38.5 % 19-41 [facility] MCV (mean corpuscular volume ) determinationOrdered By: Chente Conn on 02-24-2024 MCV (RBC) [Entitic vol] 84.9 fL 80-94 [facility] Mean corpuscular hemoglobin (MCH) determinationOrdered By: Chente Conn on 02-24-2024 MCH (RBC) [Entitic mass] 25.5 pg Low 27.0-32.0 [facility] Mean corpuscular hemoglobin concentration (MCHC) determinationOrdered By: Chente Conn on 02-24-2024 MCHC (RBC) [Mass/Vol] 30.1 g/dL Low 32-36 [facility] Mean platelet volume determi nationOrdered By: Chente Conn on 02-24-2024 Platelet mean volume (Bld) [Entitic vol] 9.9 fL 6.2-12.0 [facility] Monocyte percentageOrdered B y: Chente Conn on 02-24-2024 Monocytes/100 WBC (Bld) 8.8 % 0-10 [facility] Neutrophil percentageOrdered By: Chente Conn on 02-24-2024 Neutrophils/100 WBC (Bld) 46.5 % Low 47-70 [facility] Nucleated red blood cell per centageOrdered By: Chente Conn on 02-24-2024 Nucleated RBC/100 WBC (Bld) [Ratio] 0 % 0-5 [facility] Platelet countOrdered By: Areli Conn on 02-24-2024 Platelets (Bld) [#/Vol] 209 10*3/uL 150-450 [facility] Potassium measurementOrdered By: Chente Conn on 02-24-2024 Potassium [Moles/Vol] 3.7 mmol/L 3.5-5.1 [facility] RBC Auto (Bld) [#/Vol]Ordere d By: Chente Conn on 02-24-2024 RBC (Bld) [#/Vol] 3.84 10*6/uL Low 4.6-6.2 [facility] Serum anion gap measurementO rdered By: Chente Conn on 02-24-2024 Anion gap [Moles/Vol] 6 mmol/L 5-15 [facility] Serum or plasma calcium jacinta urement (mass/volume)Ordered By: Chente Conn on 02-24-2024 Calcium [Mass/Vol] 8.2 mg/dL Low 8.5-10.1 [facility] Serum or plasma creatinine m easurement (mass/volume)Ordered By: Chente Conn on 02-24-2024 Creatinine [Mass/Vol] 0.28 mg/dL Low 0.70-1.30 [facility] Comment on above: The validity of the calculated GFR & GFRAA in patients over 70 years has not been determined. Clinical correlation is essential. Serum or plasma urea nitroge n measurement (mass/volume)Ordered By: Chente Conn on 02-24-2024 Urea nitrogen [Mass/Vol] 15 mg/dL 7-18 [facility] Sodium levelOrdered By: Chente Conn on 02-24-2024 Sodium [Moles/Vol] 138 mmol/L 136-145 [facility] White blood cell (WBC) count Ordered By: Chente Conn on 02-24-2024 WBC (Bld) [#/Vol] 5.0 10*3/uL 4.4-11.0 [facility] Absolute neutrophil countOrd ered By: Racquel Moss on 2024 Neutrophils (Bld) [#/Vol] 5.0 10*3/uL 2.0-7.7 [facility] Basophil percentageOrdered B y: Racquel Moss on 2024 Basophils/100 WBC (Bld) 0.2 % 0-1 [facility] Blood cultureOrdered By: Jessi Moss on 2024 Bacteria identified Cx Nom (Bld) No growth in 5 days. [facility] Blood urea nitrogen (BUN)/cr eatinine ratioOrdered By: Racquel Moss on 2024 Urea nitrogen/Creatinine [Mass ratio] 24.2 mg/mg High 10-20 [facility] C-reactive protein measureme nt by high sensitivity methodOrdered By: Racquel Moss on 2024 C-Reactive Protein Extended Range 73.50 mg/L High 0.0-3.0 [facility] Comment on above: C-Reactive Protein ( CRP) provides useful information for thediagnosis, therapy and monitoring of inflammatory processesand associated diseases. For the evaluation of Relative Riskfor Cardiovascular Disease, a High Sensitivity CRP (HSCRP)should be ordered. Carbon dioxide measurementOr dered By: Racquel Moss on 2024 CO2 [Moles/Vol] 30.0 mmol/L 21.0-32.0 [facility] Chloride measurementOrdered By: Racquel Moss on 2024 Chloride [Moles/Vol] 100 mmol/L 98-107 [facility] Eosinophil percentageOrdered By: Racquel Moss on 2024 Eosinophils/100 WBC (Bld) 0.6 % 0-5 [facility] Erythrocyte distribution wid th ratioOrdered By: Remus Moss on 2024 Erythrocyte distribution width (RBC) [Ratio] 13.8 % 11.6-14.6 [facility] Erythrocyte distribution wid th standard deviationOrdered By: Remus oMss on 2024 Erythrocyte distribution width (RBC) [Entitic vol] 42.7 fL 35.1-43.9 [facility] Erythrocyte sedimentation ra teOrdered By: Remus Unggilles on 2024 ESR (Bld) [Velocity] 47 mm/h High 0-20 [facility] Estimated glomerular filtrat ion rate (GFR) AmericanOrdered By: Remus Unggilles on 2024 Estimated GFR (MDRD) Amer 379 mL/min >60 [facility] Comment on above: GFR Calc Estimation of creatinine poly aranceOrdered By: Racquel Moss on 2024 Estimated Creatinine Clearance Calc 265.33 ml/min [facility] Glomerular filtration rate ( GFR) estimationOrdered By: Racquel Moss on 2024 Estimated GFR (MDRD) Non-Af Amer 313 mL/min >60 [facility] Comment on above: Non- GFR Calc Glucose measurementOrdered B y: Racquel Moss on 2024 Glucose [Mass/Vol] 117 mg/dL High 74-106 [facility] Comment on above: Fasting Glucose resu lt from 100 to 125 mg/dL suggests IMPAIRED HOMEOSTASIS per A.D.A. criteria. Hematocrit Auto (Bld) [Volum e fraction]Ordered By: Racquel Moss on 2024 Hematocrit (Bld) [Volume fraction] 33.5 % Low 40-54 [facility] Hemoglobin measurementOrdere d By: Racquel Moss on 2024 Hemoglobin (Bld) [Mass/Vol] 10.8 g/dL Low 13.0-16.5 [facility] Immature granulocytes/100 WB C Auto (Bld)Ordered By: Racquel Moss on 2024 Immature granulocytes/100 WBC (Bld) 0.600 % 0.0-0.9 [facility] Comment on above: IG% - Immature Granu locytes (promyelocytes, myelocytes and metamyelocytes) > 1% indicates that a LEFT SHIFT is Present. Lactic acid measurementOrder ed By: Racquel Moss on 2024 Lactate [Moles/Vol] 2.0 mmol/L 0.4-2.0 [facility] Comment on above: Critical Result(s) C alled at: 18:05:46 2024 by: SHONDA REAVES. Results read back by Lakesha Steven Lymphocytes Auto (Unsp spec) [#/Vol]Ordered By: Racquel Moss on 2024 Lymphocytes (Bld) [#/Vol] 0.82 10*3/uL Low 0.83-4.5 1 [facility] Lymphocytes/100 WBC Auto (Un sp spec)Ordered By: Racquel Moss on 2024 Lymphocytes/100 WBC (Bld) 12.4 % Low 19-41 [facility] MCV (mean corpuscular volume ) determinationOrdered By: Remus Moss on 2024 MCV (RBC) [Entitic vol] 84.6 fL 80-94 [facility] Mean corpuscular hemoglobin (MCH) determinationOrdered By: Rem Unggilles on 2024 MCH (RBC) [Entitic mass] 27.3 pg 27.0-32.0 [facility] Mean corpuscular hemoglobin concentration (MCHC) determinationOrdered By: Rem Unggilles on 2024 MCHC (RBC) [Mass/Vol] 32.2 g/dL 32-36 [facility] Mean platelet volume determi nationOrdered By: Racquel Moss on 2024 Platelet mean volume (Bld) [Entitic vol] 10.0 fL 6.2-12.0 [facility] Monocyte percentageOrdered B y: Remus Moss on 2024 Monocytes/100 WBC (Bld) 11.2 % High 0-10 [facility] Neutrophil percentageOrdered By: Remus Moss on 2024 Neutrophils/100 WBC (Bld) 75.0 % High 47-70 [facility] Nucleated red blood cell per centageOrdered By: Racquel Moss on 2024 Nucleated RBC/100 WBC (Bld) [Ratio] 0 % 0-5 [facility] Platelet countOrdered By: Carmen Moss on 2024 Platelets (Bld) [#/Vol] 113 10*3/uL Low 150-450 [facility] Potassium measurementOrdered By: Racquel Moss on 2024 Potassium [Moles/Vol] 4.0 mmol/L 3.5-5.1 [facility] RBC Auto (Bld) [#/Vol]Ordere d By: Racquel Unggilles on 2024 RBC (Bld) [#/Vol] 3.96 10*6/uL Low 4.6-6.2 [facility] Serum anion gap measurementO rdered By: Racquel Moss on 2024 Anion gap [Moles/Vol] 4 mmol/L Low 5-15 [facility] Serum or plasma calcium jacinta urement (mass/volume)Ordered By: Racquel Moss on 2024 Calcium [Mass/Vol] 8.9 mg/dL 8.5-10.1 [facility] Serum or plasma creatinine m easurement (mass/volume)Ordered By: Racquel Moss on 2024 Creatinine [Mass/Vol] 0.33 mg/dL Low 0.70-1.30 [facility] Comment on above: The validity of the calculated GFR & GFRAA in patients over 70 years has not been determined. Clinical correlation is essential. Serum or plasma urea nitroge n measurement (mass/volume)Ordered By: Racquel Moss on 2024 Urea nitrogen [Mass/Vol] 8 mg/dL 7-18 [facility] Sodium levelOrdered By: Vinny Moss on 2024 Sodium [Moles/Vol] 135 mmol/L Low 136-145 [facility] White blood cell (WBC) count Ordered By: Racquel Moss on 2024 WBC (Bld) [#/Vol] 6.6 10*3/uL 4.4-11.0 [facility] Absolute neutrophil countOrd ered By: Chente Conn on 01-27-2024 Neutrophils (Bld) [#/Vol] 2.2 10*3/uL 2.0-7.7 [facility] Basophil percentageOrdered B y: Chente Conn on 01-27-2024 Basophils/100 WBC (Bld) 0.5 % 0-1 [facility] Blood urea nitrogen (BUN)/cr eatinine ratioOrdered By: Chente Conn on 01-27-2024 Urea nitrogen/Creatinine [Mass ratio] 43.3 mg/mg High 10-20 [facility] Carbon dioxide measurementOr dered By: Chente Conn on 01-27-2024 CO2 [Moles/Vol] 30.0 mmol/L 21.0-32.0 [facility] Chloride measurementOrdered By: Chente Conn on 01-27-2024 Chloride [Moles/Vol] 103 mmol/L 98-107 [facility] Eosinophil percentageOrdered By: Chente Conn on 01-27-2024 Eosinophils/100 WBC (Bld) 4.7 % 0-5 [facility] Erythrocyte distribution wid th ratioOrdered By: Chente Conn on 01-27-2024 Erythrocyte distribution width (RBC) [Ratio] 14.2 % 11.6-14.6 [facility] Erythrocyte distribution wid th standard deviationOrdered By: Chente Conn on 01-27-2024 Erythrocyte distribution width (RBC) [Entitic vol] 44.8 fL High 35.1-43.9 [facility] Estimated glomerular filtrat ion rate (GFR) AmericanOrdered By: Chente Conn on 01-27-2024 Estimated GFR (MDRD) Amer 388 mL/min >60 [facility] Comment on above: GFR Calc Glomerular filtration rate ( GFR) estimationOrdered By: Chente Conn on 01-27-2024 Estimated GFR (MDRD) Non-Af Amer 321 mL/min >60 [facility] Comment on above: Non- GFR Calc Glucose measurementOrdered B y: Chente Conn on 01-27-2024 Glucose [Mass/Vol] 99 mg/dL 74-106 [facility] Hematocrit Auto (Bld) [Volum e fraction]Ordered By: Chente Conn on 01-27-2024 Hematocrit (Bld) [Volume fraction] 33.6 % Low 40-54 [facility] Hemoglobin measurementOrdere d By: Chente Conn on 01-27-2024 Hemoglobin (Bld) [Mass/Vol] 10.5 g/dL Low 13.0-16.5 [facility] Immature granulocytes/100 WB C Auto (Bld)Ordered By: Chente Conn on 01-27-2024 Immature granulocytes/100 WBC (Bld) 0.000 % 0.0-0.9 [facility] Comment on above: IG% - Immature Granu locytes (promyelocytes, myelocytes and metamyelocytes) > 1% indicates that a LEFT SHIFT is Present. Lymphocytes Auto (Unsp spec) [#/Vol]Ordered By: Chente Conn on 01-27-2024 Lymphocytes (Bld) [#/Vol] 1.16 10*3/uL 0.83-4.5 1 [facility] Lymphocytes/100 WBC Auto (Un sp spec)Ordered By: Chente Conn on 01-27-2024 Lymphocytes/100 WBC (Bld) 28.9 % 19-41 [facility] MCV (mean corpuscular volume ) determinationOrdered By: Chente Conn on 01-27-2024 MCV (RBC) [Entitic vol] 85.9 fL 80-94 [facility] Mean corpuscular hemoglobin (MCH) determinationOrdered By: Chente Conn on 01-27-2024 MCH (RBC) [Entitic mass] 26.9 pg Low 27.0-32.0 [facility] Mean corpuscular hemoglobin concentration (MCHC) determinationOrdered By: Chente Conn on 01-27-2024 MCHC (RBC) [Mass/Vol] 31.3 g/dL Low 32-36 [facility] Mean platelet volume determi nationOrdered By: Chente Conn on 01-27-2024 Platelet mean volume (Bld) [Entitic vol] 10.3 fL 6.2-12.0 [facility] Monocyte percentageOrdered B y: Chente Conn on 01-27-2024 Monocytes/100 WBC (Bld) 10.2 % High 0-10 [facility] Neutrophil percentageOrdered By: Chente Conn on 01-27-2024 Neutrophils/100 WBC (Bld) 55.7 % 47-70 [facility] Nucleated red blood cell per centageOrdered By: Chente Conn on 01-27-2024 Nucleated RBC/100 WBC (Bld) [Ratio] 0 % 0-5 [facility] Platelet countOrdered By: Areli Conn on 01-27-2024 Platelets (Bld) [#/Vol] 161 10*3/uL 150-450 [facility] Potassium measurementOrdered By: Chente Conn on 01-27-2024 Potassium [Moles/Vol] 4.0 mmol/L 3.5-5.1 [facility] RBC Auto (Bld) [#/Vol]Ordere d By: Chente Conn on 01-27-2024 RBC (Bld) [#/Vol] 3.91 10*6/uL Low 4.6-6.2 [facility] Serum anion gap measurementO rdered By: Chente Conn on 01-27-2024 Anion gap [Moles/Vol] 7 mmol/L 5-15 [facility] Serum or plasma calcium jacinta urement (mass/volume)Ordered By: Chente Conn on 01-27-2024 Calcium [Mass/Vol] 9.0 mg/dL 8.5-10.1 [facility] Serum or plasma creatinine m easurement (mass/volume)Ordered By: Chente Conn on 01-27-2024 Creatinine [Mass/Vol] 0.32 mg/dL Low 0.70-1.30 [facility] Comment on above: The validity of the calculated GFR & GFRAA in patients over 70 years has not been determined. Clinical correlation is essential. Serum or plasma urea nitroge n measurement (mass/volume)Ordered By: Chente Conn on 01-27-2024 Urea nitrogen [Mass/Vol] 14 mg/dL 7-18 [facility] Sodium levelOrdered By: Chente Conn on 01-27-2024 Sodium [Moles/Vol] 140 mmol/L 136-145 [facility] White blood cell (WBC) count Ordered By: Chente Conn on 01-27-2024 WBC (Bld) [#/Vol] 4.0 10*3/uL Low 4.4-11.0 [facility] Absolute lymphocyte countOrd ered By: Torey Huffman on 06-14-2023 Lymphocytes Auto (Unsp spec) [#/Vol] 2.38 10*3/uL 0.83-4.51 [facility] Automated lymphocyte count a s percentage of total leukocytesOrdered By: Torey Huffman on 06-14-2023 Lymphocytes/100 WBC Auto (Unsp spec) 35.4 % 19-41 [facility] Basophil percentageOrdered B y: Torey Huffman on 06-14-2023 Basophils/100 WBC (Bld) 0.3 % 0-1 [facility] Chloride [Moles/Vol] 104 mmol/L 98-107 [facility] Eosinophils/100 WBC (Bld) 4.3 % 0-5 [facility] Glucose [Mass/Vol] 101 mg/dL 74-106 [facility] Comment on above: Fasting Glucose resu lt from 100 to 125 mg/dL suggests IMPAIRED HOMEOSTASIS per A.D.A. criteria. Hemoglobin (Bld) [Mass/Vol] 11.2 g/dL 13.0-16.5 [facility] Monocytes/100 WBC (Bld) 9.4 % 0-10 [facility] Neutrophils (Bld) [#/Vol] 3.4 10*3/uL 2.0-7.7 [facility] Neutrophils/100 WBC (Bld) 50.5 % 47-70 [facility] Potassium [Moles/Vol] 3.7 mmol/L 3.5-5.1 [facility] Sodium [Moles/Vol] 139 mmol/L 136-145 [facility] WBC (Bld) [#/Vol] 6.7 10*3/uL 4.4-11.0 [facility] Determination of erythrocyte mean corpuscular volume (MCV)Ordered By: Torey Huffman on 06-14-2023 MCV (RBC) [Entitic vol] 83.3 fL 80-94 [facility] Erythrocyte distribution wid th ratioOrdered By: Torey Huffman on 06-14-2023 Erythrocyte distribution width (RBC) [Ratio] 14.7 % 11.6-14.6 [facility] Erythrocyte distribution wid th standard deviationOrdered By: Torey Huffman on 06-14-2023 Erythrocyte distribution width (RBC) [Entitic vol] 44.5 fL 35.1-43.9 [facility] Hematocrit Auto (Bld) [Volum e fraction]Ordered By: Torey Huffman on 06-14-2023 Hematocrit (Bld) [Volume fraction] 34.4 % 40-54 [facility] Immature granulocytes/100 WB C Auto (Bld)Ordered By: Torey Huffman on 06-14-2023 Immature granulocytes/100 WBC (Bld) 0.100 % 0.0-0.9 [facility] Comment on above: IG% - Immature Granu locytes (promyelocytes, myelocytes and metamyelocytes) > 1% indicates that a LEFT SHIFT is Present. Laboratory - Chemistry and C hemistry - challengeOrdered By: Torey Huffman on 06-14-2023 CO2 [Moles/Vol] 31.0 mmol/L 21.0-32.0 [facility] Urea nitrogen/Creatinine [Mass ratio] 43.2 mg/mg 10-20 [facility] Laboratory - Hematology and Cell countsOrdered By: Torey Huffman on 06-14-2023 MCH (RBC) [Entitic mass] 27.1 pg 27.0-32.0 [facility] MCHC (RBC) [Mass/Vol] 32.6 g/dL 32-36 [facility] Nucleated RBC/100 WBC (Bld) [Ratio] 0 % 0-5 [facility] Platelet mean volume (Bld) [Entitic vol] 10.4 fL 6.2-12.0 [facility] Platelets (Bld) [#/Vol] 178 10*3/uL 150-450 [facility] No Panel InformationOrdered By: Torey Huffman on 06-14-2023 Estimated GFR (MDRD) Amer 423 mL/min >60 [facility] Comment on above: GFR Calc Estimated GFR (MDRD) Non-Af Amer 349 mL/min >60 [facility] Comment on above: Non- GFR Calc RBC Auto (Bld) [#/Vol]Ordere d By: Torey Huffman on 06-14-2023 RBC (Bld) [#/Vol] 4.13 10*6/uL 4.6-6.2 [facility] Serum or plasma calcium jacinta urement (mass/volume)Ordered By: Torey Huffman on 06-14-2023 Calcium [Mass/Vol] 8.3 mg/dL 8.5-10.1 [facility] Serum or plasma creatinine m easurement (mass/volume)Ordered By: Torey Huffman on 06-14-2023 Creatinine [Mass/Vol] 0.30 mg/dL 0.70-1.30 [facility] Comment on above: The validity of the calculated GFR & GFRAA in patients over 70 years has not been determined. Clinical correlation is essential. Serum or plasma urea nitroge n measurement (mass/volume)Ordered By: Torey Huffman on 06-14-2023 Urea nitrogen [Mass/Vol] 13 mg/dL 7-18 [facility] Thin prep Papanicolaou smear with manual screeningOrdered By: Torey Huffman on 06-14-2023 Thin prep Papanicolaou smear with manual screening 4 5-15 [facility] Absolute lymphocyte countOrd ered By: Torey Huffman on 05-17-2023 Lymphocytes Auto (Unsp spec) [#/Vol] 2.30 10*3/uL 0.83-4.51 [facility] [facility] Automated lymphocyte count a s percentage of total leukocytesOrdered By: Torey Huffman on 05-17-2023 Lymphocytes/100 WBC Auto (Unsp spec) 36.7 % 19-41 [facility] Basophil percentageOrdered B y: Torey Huffman on 05-17-2023 Basophils/100 WBC (Bld) 0.3 % 0-1 [facility] Chloride [Moles/Vol] 104 mmol/L 98-107 [facility] Eosinophils/100 WBC (Bld) 4.5 % 0-5 [facility] Glucose [Mass/Vol] 88 mg/dL 74-106 [facility] Hemoglobin (Bld) [Mass/Vol] 11.2 g/dL 13.0-16.5 [facility] Monocytes/100 WBC (Bld) 8.1 % 0-10 [facility] Neutrophils (Bld) [#/Vol] 3.1 10*3/uL 2.0-7.7 [facility] Neutrophils/100 WBC (Bld) 50.1 % 47-70 [facility] Potassium [Moles/Vol] 4.0 mmol/L 3.5-5.1 [facility] Sodium [Moles/Vol] 139 mmol/L 136-145 [facility] WBC (Bld) [#/Vol] 6.3 10*3/uL 4.4-11.0 [facility] Determination of erythrocyte mean corpuscular volume (MCV)Ordered By: Torey Huffman on 05-17-2023 MCV (RBC) [Entitic vol] 84.5 fL 80-94 [facility] Erythrocyte distribution wid th ratioOrdered By: Torey Huffman on 05-17-2023 Erythrocyte distribution width (RBC) [Ratio] 14.6 % 11.6-14.6 [facility] Erythrocyte distribution wid th standard deviationOrdered By: Torey Huffman on 05-17-2023 Erythrocyte distribution width (RBC) [Entitic vol] 45.0 fL 35.1-43.9 [facility] Hematocrit Auto (Bld) [Volum e fraction]Ordered By: Torey Huffman on 05-17-2023 Hematocrit (Bld) [Volume fraction] 36.6 % 40-54 [facility] Immature granulocytes/100 WB C Auto (Bld)Ordered By: Torey Huffman on 05-17-2023 Immature granulocytes/100 WBC (Bld) 0.300 % 0.0-0.9 [facility] Comment on above: IG% - Immature Granu locytes (promyelocytes, myelocytes and metamyelocytes) > 1% indicates that a LEFT SHIFT is Present. Laboratory - Chemistry and C hemistry - challengeOrdered By: Torey Huffman on 05-17-2023 CO2 [Moles/Vol] 31.0 mmol/L 21.0-32.0 [facility] Urea nitrogen/Creatinine [Mass ratio] 45.9 mg/mg 10-20 [facility] Laboratory - Hematology and Cell countsOrdered By: Torey Huffman on 05-17-2023 MCH (RBC) [Entitic mass] 25.9 pg 27.0-32.0 [facility] MCHC (RBC) [Mass/Vol] 30.6 g/dL 32-36 [facility] Nucleated RBC/100 WBC (Bld) [Ratio] 0 % 0-5 [facility] Platelet mean volume (Bld) [Entitic vol] 10.8 fL 6.2-12.0 [facility] Platelets (Bld) [#/Vol] 206 10*3/uL 150-450 [facility] No Panel InformationOrdered By: Torey Huffman on 05-17-2023 Estimated GFR (MDRD) Amer 416 mL/min >60 [facility] Comment on above: GFR Calc Estimated GFR (MDRD) Non-Af Amer 344 mL/min >60 [facility] Comment on above: Non- GFR Calc RBC Auto (Bld) [#/Vol]Ordere d By: oTrey Huffman on 05-17-2023 RBC (Bld) [#/Vol] 4.33 10*6/uL 4.6-6.2 [facility] Serum or plasma calcium jacinta urement (mass/volume)Ordered By: Torey Huffman on 05-17-2023 Calcium [Mass/Vol] 8.6 mg/dL 8.5-10.1 [facility] Serum or plasma creatinine m easurement (mass/volume)Ordered By: Torey Huffman on 05-17-2023 Creatinine [Mass/Vol] 0.30 mg/dL 0.70-1.30 [facility] Comment on above: The validity of the calculated GFR & GFRAA in patients over 70 years has not been determined. Clinical correlation is essential. Serum or plasma urea nitroge n measurement (mass/volume)Ordered By: Torey Huffman on 05-17-2023 Urea nitrogen [Mass/Vol] 14 mg/dL 7-18 [facility] Thin prep Papanicolaou smear with manual screeningOrdered By: Torey Huffman on 05-17-2023 Thin prep Papanicolaou smear with manual screening 4 5-15 [facility] Absolute lymphocyte countOrd ered By: Torey Huffman on 04-19-2023 Lymphocytes Auto (Unsp spec) [#/Vol] 2.37 10*3/uL 0.83-4.51 [facility] Automated lymphocyte count a s percentage of total leukocytesOrdered By: Torey Huffman on 04-19-2023 Lymphocytes/100 WBC Auto (Unsp spec) 31.8 % 19-41 [facility] Basophil percentageOrdered B y: Torey Huffman on 04-19-2023 Basophils/100 WBC (Bld) 0.4 % 0-1 [facility] Chloride [Moles/Vol] 105 mmol/L 98-107 [facility] Eosinophils/100 WBC (Bld) 5.0 % 0-5 [facility] Glucose [Mass/Vol] 102 mg/dL 74-106 [facility] Comment on above: Fasting Glucose resu lt from 100 to 125 mg/dL suggests IMPAIRED HOMEOSTASIS per A.D.A. criteria. Hemoglobin (Bld) [Mass/Vol] 11.4 g/dL 13.0-16.5 [facility] Monocytes/100 WBC (Bld) 9.4 % 0-10 [facility] Neutrophils (Bld) [#/Vol] 4.0 10*3/uL 2.0-7.7 [facility] Neutrophils/100 WBC (Bld) 53.0 % 47-70 [facility] Potassium [Moles/Vol] 4.1 mmol/L 3.5-5.1 [facility] Sodium [Moles/Vol] 138 mmol/L 136-145 [facility] WBC (Bld) [#/Vol] 7.5 10*3/uL 4.4-11.0 [facility] Determination of erythrocyte mean corpuscular volume (MCV)Ordered By: Torey Huffman on 04-19-2023 MCV (RBC) [Entitic vol] 84.7 fL 80-94 [facility] Erythrocyte distribution wid th ratioOrdered By: Torey Huffman on 04-19-2023 Erythrocyte distribution width (RBC) [Ratio] 14.8 % 11.6-14.6 [facility] Erythrocyte distribution wid th standard deviationOrdered By: Torey Huffman on 04-19-2023 Erythrocyte distribution width (RBC) [Entitic vol] 45.9 fL 35.1-43.9 [facility] Hematocrit Auto (Bld) [Volum e fraction]Ordered By: Torey Huffman on 04-19-2023 Hematocrit (Bld) [Volume fraction] 37.2 % 40-54 [facility] Immature granulocytes/100 WB C Auto (Bld)Ordered By: Torey Huffman on 04-19-2023 Immature granulocytes/100 WBC (Bld) 0.400 % 0.0-0.9 [facility] Comment on above: IG% - Immature Granu locytes (promyelocytes, myelocytes and metamyelocytes) > 1% indicates that a LEFT SHIFT is Present. Laboratory - Chemistry and C hemistry - challengeOrdered By: Torey Huffman on 04-19-2023 CO2 [Moles/Vol] 28.0 mmol/L 21.0-32.0 [facility] Urea nitrogen/Creatinine [Mass ratio] 58.3 mg/mg 10-20 [facility] Laboratory - Hematology and Cell countsOrdered By: Torey Huffman on 04-19-2023 MCH (RBC) [Entitic mass] 26.0 pg 27.0-32.0 [facility] MCHC (RBC) [Mass/Vol] 30.6 g/dL 32-36 [facility] Nucleated RBC/100 WBC (Bld) [Ratio] 0 % 0-5 [facility] Platelet mean volume (Bld) [Entitic vol] 10.4 fL 6.2-12.0 [facility] Platelets (Bld) [#/Vol] 198 10*3/uL 150-450 [facility] No Panel InformationOrdered By: Toery Huffman on 04-19-2023 Estimated GFR (MDRD) Amer 410 mL/min >60 [facility] Comment on above: GFR Calc Estimated GFR (MDRD) Non-Af Amer 339 mL/min >60 [facility] Comment on above: Non- GFR Calc RBC Auto (Bld) [#/Vol]Ordere d By: Torey Huffman on 04-19-2023 RBC (Bld) [#/Vol] 4.39 10*6/uL 4.6-6.2 [facility] Serum or plasma calcium jacinta urement (mass/volume)Ordered By: Torey Huffman on 04-19-2023 Calcium [Mass/Vol] 8.8 mg/dL 8.5-10.1 [facility] Serum or plasma creatinine m easurement (mass/volume)Ordered By: Torey Huffman on 04-19-2023 Creatinine [Mass/Vol] 0.31 mg/dL 0.70-1.30 [facility] Comment on above: The validity of the calculated GFR & GFRAA in patients over 70 years has not been determined. Clinical correlation is essential. Serum or plasma urea nitroge n measurement (mass/volume)Ordered By: Torey Huffman on 04-19-2023 Urea nitrogen [Mass/Vol] 18 mg/dL 7-18 [facility] Thin prep Papanicolaou smear with manual screeningOrdered By: Torey Huffman on 04-19-2023 Thin prep Papanicolaou smear with manual screening 5 5-15 [facility] Absolute lymphocyte countOrd ered By: Anthony Russell on 04-13-2023 Lymphocytes Auto (Unsp spec) [#/Vol] 3.45 10*3/uL 0.83-4.51 [facility] Activated partial thrombopla stin time (aPTT) in platelet poor plasma by coagulation aOrdered By: Anthony Russell on 04-13-2023 aPTT Coag (PPP) [Time] 25.7 s 24.1-36.2 [facility] Automated lymphocyte count a s percentage of total leukocytesOrdered By: Anthony Russell on 04-13-2023 Lymphocytes/100 WBC Auto (Unsp spec) 43.5 % 19-41 [facility] Basophil percentageOrdered B y: Anthony Russell on 04-13-2023 Basophils/100 WBC (Bld) 0.5 % 0-1 [facility] Chloride [Moles/Vol] 103 mmol/L 98-107 [facility] Eosinophils/100 WBC (Bld) 3.7 % 0-5 [facility] Glucose [Mass/Vol] 116 mg/dL 74-106 [facility] Comment on above: Fasting Glucose resu lt from 100 to 125 mg/dL suggests IMPAIRED HOMEOSTASIS per A.D.A. criteria. Hemoglobin (Bld) [Mass/Vol] 12.4 g/dL 13.0-16.5 [facility] Monocytes/100 WBC (Bld) 7.8 % 0-10 [facility] Neutrophils (Bld) [#/Vol] 3.5 10*3/uL 2.0-7.7 [facility] Neutrophils/100 WBC (Bld) 44.2 % 47-70 [facility] Potassium [Moles/Vol] 4.0 mmol/L 3.5-5.1 [facility] Sodium [Moles/Vol] 137 mmol/L 136-145 [facility] WBC (Bld) [#/Vol] 7.9 10*3/uL 4.4-11.0 [facility] Determination of erythrocyte mean corpuscular volume (MCV)Ordered By: Anthony Russell on 04-13-2023 MCV (RBC) [Entitic vol] 82.9 fL 80-94 [facility] Erythrocyte distribution wid th ratioOrdered By: Anthony Russell on 04-13-2023 Erythrocyte distribution width (RBC) [Ratio] 14.9 % 11.6-14.6 [facility] Erythrocyte distribution wid th standard deviationOrdered By: Anthony Russell on 04-13-2023 Erythrocyte distribution width (RBC) [Entitic vol] 44.8 fL 35.1-43.9 [facility] Hematocrit Auto (Bld) [Volum e fraction]Ordered By: Anthony Russell on 04-13-2023 Hematocrit (Bld) [Volume fraction] 40.2 % 40-54 [facility] Immature granulocytes/100 WB C Auto (Bld)Ordered By: Anthony Russell on 04-13-2023 Immature granulocytes/100 WBC (Bld) 0.300 % 0.0-0.9 [facility] Comment on above: IG% - Immature Granu locytes (promyelocytes, myelocytes and metamyelocytes) > 1% indicates that a LEFT SHIFT is Present. Laboratory - Chemistry and C hemistry - challengeOrdered By: Anthony Russell on 04-13-2023 CO2 [Moles/Vol] 24.0 mmol/L 21.0-32.0 [facility] Urea nitrogen/Creatinine [Mass ratio] 39.7 mg/mg 10-20 [facility] Laboratory - CoagulationOrde red By: Anthony Russell on 04-13-2023 INR Coag (Bld) [Relative time] 1.0 {INR} [facility] PT Coag (PPP) [Time] 13.3 s 11.7-14.9 [facility] Laboratory - Hematology and Cell countsOrdered By: Anthony Russell on 04-13-2023 MCH (RBC) [Entitic mass] 25.6 pg 27.0-32.0 [facility] MCHC (RBC) [Mass/Vol] 30.8 g/dL 32-36 [facility] Nucleated RBC/100 WBC (Bld) [Ratio] 0 % 0-5 [facility] Platelet mean volume (Bld) [Entitic vol] 10.2 fL 6.2-12.0 [facility] Platelets (Bld) [#/Vol] 216 10*3/uL 150-450 [facility] No Panel InformationOrdered By: Anthony Russell on 04-13-2023 D-Dimer Quantitative (PE/DVT) < 0.27 FEU/ug/m 0.27-0.49 [facility] Comment on above: NORMAL D-Dimer level (<0.50) indicates no DVT or PE. Estimated Creatinine Clearance Calc 176.92 ml/min [facility] Estimated GFR (MDRD) Amer 248 mL/min >60 [facility] Comment on above: GFR Calc Estimated GFR (MDRD) Non-Af Amer 205 mL/min >60 [facility] Comment on above: Non- GFR Calc Troponin I High Sensitivity < 3 pg/mL 3.0-78.0 [facility] Comment on above: Please Note: New Suha t Units and Gender Specific Reference Ranges. For more information see Policy Stat Procedure [place] High Sensitivity Troponin (TNIH) and attachments. RBC Auto (Bld) [#/Vol]Ordere d By: Anthony Russell on 04-13-2023 RBC (Bld) [#/Vol] 4.85 10*6/uL 4.6-6.2 [facility] Serum or plasma calcium jacinta urement (mass/volume)Ordered By: Anthony Russell on 04-13-2023 Calcium [Mass/Vol] 9.2 mg/dL 8.5-10.1 [facility] Serum or plasma creatinine m easurement (mass/volume)Ordered By: Anthony Russell on 04-13-2023 Creatinine [Mass/Vol] 0.48 mg/dL 0.70-1.30 [facility] Comment on above: The validity of the calculated GFR & GFRAA in patients over 70 years has not been determined. Clinical correlation is essential. Serum or plasma urea nitroge n measurement (mass/volume)Ordered By: Anthony Russell on 04-13-2023 Urea nitrogen [Mass/Vol] 19 mg/dL 7-18 [facility] Thin prep Papanicolaou smear with manual screeningOrdered By: Anthony Russell on 04-13-2023 Thin prep Papanicolaou smear with manual screening 10 5-15 [facility] Absolute lymphocyte countOrd ered By: Lucia Dillard on 03-24-2023 Lymphocytes Auto (Unsp spec) [#/Vol] 1.76 10*3/uL 0.83-4.51 [facility] Automated lymphocyte count a s percentage of total leukocytesOrdered By: Lucia Dillard on 03-24-2023 Lymphocytes/100 WBC Auto (Unsp spec) 25.6 % 19-41 [facility] Basophil percentageOrdered B y: Lucia Dillard on 03-24-2023 Basophil percentage 10.8 g/dL 13.0-16.5 [facility] Basophil percentage 91 mg/dL 74-106 [facility] Basophil percentage 7.5 g/dL 6.4-8.2 [facility] Basophil percentage 0.30 mg/dL 0.20-1.00 [facility] Basophil percentage 137 mmol/L 136-145 [facility] Basophil percentage 3.6 mmol/L 3.5-5.1 [facility] Basophil percentage 106 mmol/L 98-107 [facility] Basophils (Bld) [#/Vol] 6.9 10*3/uL 4.4-11.0 [facility] Basophils (Bld) [#/Vol] 4.3 10*3/uL 2.0-7.7 [facility] Basophils/100 WBC (Bld) 62.2 % 47-70 [facility] Basophils/100 WBC (Bld) 8.9 % 0-10 [facility] Basophils/100 WBC (Bld) 2.9 % 0-5 [facility] Basophils/100 WBC (Bld) 0.3 % 0-1 [facility] Bilirubin [Mass/Vol] 0.30 mg/dL 0.20-1.00 [facility] Comment on above: For patients on eltr ombopag therapy, use of Dimension [place] TBIL is not recommended. Chloride [Moles/Vol] 106 mmol/L 98-107 [facility] Eosinophils/100 WBC (Bld) 2.9 % 0-5 [facility] Glucose [Mass/Vol] 91 mg/dL 74-106 [facility] Hemoglobin (Bld) [Mass/Vol] 10.8 g/dL 13.0-16.5 [facility] Monocytes/100 WBC (Bld) 8.9 % 0-10 [facility] Neutrophils (Bld) [#/Vol] 4.3 10*3/uL 2.0-7.7 [facility] Neutrophils/100 WBC (Bld) 62.2 % 47-70 [facility] Potassium [Moles/Vol] 3.6 mmol/L 3.5-5.1 [facility] Protein [Mass/Vol] 7.5 g/dL 6.4-8.2 [facility] Sodium [Moles/Vol] 137 mmol/L 136-145 [facility] WBC (Bld) [#/Vol] 6.9 10*3/uL 4.4-11.0 [facility] Basophil percentageOrdered B y: Dominic Méndez on 03-24-2023 Basophil percentage 0.5 mmol/L 0.4-2.0 [facility] Lactate [Moles/Vol] 0.5 mmol/L 0.4-2.0 [facility] Determination of erythrocyte mean corpuscular volume (MCV)Ordered By: Lucia Dillard on 03-24-2023 MCV (RBC) [Entitic vol] 84.4 fL 80-94 [facility] Erythrocyte distribution wid th ratioOrdered By: Lucia Dillard on 03-24-2023 Erythrocyte distribution width (RBC) [Ratio] 14.9 % 11.6-14.6 [facility] Erythrocyte distribution wid th standard deviationOrdered By: Lucia Dillard on 03-24-2023 Erythrocyte distribution width (RBC) [Entitic vol] 46.0 fL 35.1-43.9 [facility] Hematocrit Auto (Bld) [Volum e fraction]Ordered By: Lucia Dillard on 03-24-2023 Hematocrit (Bld) [Volume fraction] 35.2 % 40-54 [facility] Immature granulocytes/100 WB C Auto (Bld)Ordered By: Lucia Dillard on 03-24-2023 Immature granulocytes/100 WBC (Bld) 0.100 % 0.0-0.9 [facility] Comment on above: IG% - Immature Granu locytes (promyelocytes, myelocytes and metamyelocytes) > 1% indicates that a LEFT SHIFT is Present. Laboratory - Chemistry and C hemistry - challengeOrdered By: Lucia Dillard on 03-24-2023 Albumin/Globulin [Mass ratio] 0.7 {ratio} 0.9-2.4 [facility] ALP [Catalytic activity/Vol] 153 U/L 45-117 [facility] ALT [Catalytic activity/Vol] 25 U/L 16-61 [facility] CO2 [Moles/Vol] 29.0 mmol/L 21.0-32.0 [facility] Globulin (S) [Mass/Vol] 4.4 g/dL 2.2-4.2 [facility] Urea nitrogen/Creatinine [Mass ratio] 74.7 mg/mg 10-20 [facility] Laboratory - Hematology and Cell countsOrdered By: Lucia Dillard on 03-24-2023 MCH (RBC) [Entitic mass] 25.9 pg 27.0-32.0 [facility] MCHC (RBC) [Mass/Vol] 30.7 g/dL 32-36 [facility] Nucleated RBC/100 WBC (Bld) [Ratio] 0 % 0-5 [facility] Platelets (Bld) [#/Vol] 181 10*3/uL 150-450 [facility] No Panel InformationOrdered By: Lucia Dillard on 03-24-2023 Estimated Creatinine Clearance Calc 351.31 ml/min [facility] Estimated GFR (MDRD) Amer 547 mL/min >60 [facility] Comment on above: GFR Calc Estimated GFR (MDRD) Non-Af Amer 452 mL/min >60 [facility] Comment on above: Non- GFR Calc 25.9 pg 27.0-32.0 [facility] 30.7 g/dL 32-36 [facility] 181 K/mm3 150-450 [facility] 0 % 0-5 [facility] 452 mL/min >60 [facility] 547 mL/min >60 [facility] 351.31 ml/min [facility] 74.7 RATIO 10-20 [facility] 4.4 g/dL 2.2-4.2 [facility] 0.7 RATIO 0.9-2.4 [facility] 153 U/L 45-117 [facility] 25 U/L 16-61 [facility] 29.0 mmol/L 21.0-32.0 [facility] Platelet mean volume Jm-Ec ker (Bld) [Entitic vol]Ordered By: Lucia Dillard on 03-24-2023 Platelet mean volume (Bld) [Entitic vol] 10.4 fL 6.2-12.0 [facility] RBC Auto (Bld) [#/Vol]Ordere d By: Lucia Dillard on 03-24-2023 RBC (Bld) [#/Vol] 4.17 10*6/uL 4.6-6.2 [facility] Serum or plasma calcium jacinta urement (mass/volume)Ordered By: Lucia Dillard on 03-24-2023 Calcium [Mass/Vol] 8.2 mg/dL 8.5-10.1 [facility] Serum or plasma creatinine m easurement (mass/volume)Ordered By: Lucia Dillard on 03-24-2023 Creatinine [Mass/Vol] 0.24 mg/dL 0.70-1.30 [facility] Comment on above: The validity of the calculated GFR & GFRAA in patients over 70 years has not been determined. Clinical correlation is essential. Serum or plasma urea nitroge n measurement (mass/volume)Ordered By: Lucia Dillard on 03-24-2023 Urea nitrogen [Mass/Vol] 18 mg/dL 7-18 [facility] Thin prep Papanicolaou smear with manual screeningOrdered By: Lucia Dillard on 03-24-2023 Thin prep Papanicolaou smear with manual screening 3.1 g/dL 3.2-5.0 [facility] Thin prep Papanicolaou smear with manual screening 14 U/L 15-37 [facility] Thin prep Papanicolaou smear with manual screening 2 5-15 [facility] Absolute lymphocyte countOrd ered By: Dominic Méndez on 03-23-2023 Lymphocytes Auto (Unsp spec) [#/Vol] 2.81 10*3/uL 0.83-4.51 [facility] Activated partial thrombopla stin time (aPTT) in platelet poor plasma by coagulation aOrdered By: Dominic Méndez on 03-23-2023 aPTT Coag (PPP) [Time] 31.1 s 24.1-36.2 [facility] Automated lymphocyte count a s percentage of total leukocytesOrdered By: Dominic Méndez on 03-23-2023 Lymphocytes/100 WBC Auto (Unsp spec) 21.7 % 19-41 [facility] Basophil percentageOrdered B y: Dominic Méndez on 03-23-2023 Bilirubin [Mass/Vol] 0.20 mg/dL 0.20-1.00 [facility] Comment on above: For patients on eltr ombopag therapy, use of Dimension [place] TBIL is not recommended. Chloride [Moles/Vol] 104 mmol/L 98-107 [facility] Glucose [Mass/Vol] 123 mg/dL 74-106 [facility] Comment on above: Fasting Glucose resu lt from 100 to 125 mg/dL suggests IMPAIRED HOMEOSTASIS per A.D.A. criteria. Potassium [Moles/Vol] 3.7 mmol/L 3.5-5.1 [facility] Protein [Mass/Vol] 8.8 g/dL 6.4-8.2 [facility] Sodium [Moles/Vol] 135 mmol/L 136-145 [facility] Basophils/100 WBC (Bld) 0.2 % 0-1 [facility] Eosinophils/100 WBC (Bld) 2.0 % 0-5 [facility] Hemoglobin (Bld) [Mass/Vol] 13.1 g/dL 13.0-16.5 [facility] Lactate [Moles/Vol] 5.3 mmol/L 0.4-2.0 [facility] Comment on above: Critical Result(s) C alled at: 13:12:15 03/23/2023 by: Moraima Simmons. Results read back by same. Monocytes/100 WBC (Bld) 5.1 % 0-10 [facility] Neutrophils (Bld) [#/Vol] 9.1 10*3/uL 2.0-7.7 [facility] Neutrophils/100 WBC (Bld) 70.6 % 47-70 [facility] WBC (Bld) [#/Vol] 13.0 10*3/uL 4.4-11.0 [facility] Culture, urineOrdered By: Champ Méndez on 03-23-2023 Bacteria identified Cx Nom (U) Culture exhibits no growth. [facility] Bacteria identified Cx Nom (U) Culture exhibits no growth. [facility] Determination of erythrocyte mean corpuscular volume (MCV)Ordered By: Dominic Méndez on 03-23-2023 MCV (RBC) [Entitic vol] 83.2 fL 80-94 [facility] Erythrocyte distribution wid th ratioOrdered By: Dominic Méndez on 03-23-2023 Erythrocyte distribution width (RBC) [Ratio] 14.8 % 11.6-14.6 [facility] Erythrocyte distribution wid th standard deviationOrdered By: Dominic Méndez on 03-23-2023 Erythrocyte distribution width (RBC) [Entitic vol] 45.1 fL 35.1-43.9 [facility] Hematocrit Auto (Bld) [Volum e fraction]Ordered By: Dominic Méndez on 03-23-2023 Hematocrit (Bld) [Volume fraction] 42.2 % 40-54 [facility] Immature granulocytes/100 WB C Auto (Bld)Ordered By: Dominic Méndez on 03-23-2023 Immature granulocytes/100 WBC (Bld) 0.400 % 0.0-0.9 [facility] Comment on above: IG% - Immature Granu locytes (promyelocytes, myelocytes and metamyelocytes) > 1% indicates that a LEFT SHIFT is Present. International normalized rat io (INR) calculationOrdered By: Dominic Méndez on 03-23-2023 INR Coag (PPP) [Relative time] 1.0 {INR} [facility] Laboratory - Chemistry and C hemistry - challengeOrdered By: Dominic Méndez on 03-23-2023 Albumin/Globulin [Mass ratio] 0.7 {ratio} 0.9-2.4 [facility] ALP [Catalytic activity/Vol] 169 U/L 45-117 [facility] ALT [Catalytic activity/Vol] 29 U/L 16-61 [facility] CO2 [Moles/Vol] 26.0 mmol/L 21.0-32.0 [facility] Globulin (S) [Mass/Vol] 5.2 g/dL 2.2-4.2 [facility] Urea nitrogen/Creatinine [Mass ratio] 46.1 mg/mg 10-20 [facility] Laboratory - CoagulationOrde red By: Dominic Méndez on 03-23-2023 PT Coag (PPP) [Time] 12.9 s 11.7-14.9 [facility] Laboratory - Hematology and Cell countsOrdered By: Dominic Méndez on 03-23-2023 MCH (RBC) [Entitic mass] 25.8 pg 27.0-32.0 [facility] MCHC (RBC) [Mass/Vol] 31.0 g/dL 32-36 [facility] Nucleated RBC/100 WBC (Bld) [Ratio] 0 % 0-5 [facility] Platelets (Bld) [#/Vol] 229 10*3/uL 150-450 [facility] Laboratory - Microbiology an d Antimicrobial susceptibilityOrdered By: Dominic Méndez on 03-23-2023 Bacteria identified Cx Nom (Bld) No growth in 5 days. [facility] Bacteria identified Cx Nom (Bld) No growth in 5 days. [facility] No Panel InformationOrdered By: Dominic Méndez on 03-23-2023 Estimated Creatinine Clearance Calc 186.40 ml/min [facility] Estimated GFR (MDRD) Amer 262 mL/min >60 [facility] Comment on above: GFR Calc Estimated GFR (MDRD) Non-Af Amer 217 mL/min >60 [facility] Comment on above: Non- GFR Calc 12.9 SECONDS 11.7-14.9 [facility] Platelet mean volume Jm-Ec ker (Bld) [Entitic vol]Ordered By: Dominic Méndez on 03-23-2023 Platelet mean volume (Bld) [Entitic vol] 10.1 fL 6.2-12.0 [facility] RBC Auto (Bld) [#/Vol]Ordere d By: Dominic Méndez on 03-23-2023 RBC (Bld) [#/Vol] 5.07 10*6/uL 4.6-6.2 [facility] Respiratory pathogens detect ion panel by molecular detection methodOrdered By: Dominic Méndez on 03-23-2023 Respiratory pathogens DNA and RNA panel YAYO+probe (Resp) [facility] Respiratory pathogens DNA and RNA panel YAYO+probe (Resp) [facility] Serum or plasma calcium jacinta urement (mass/volume)Ordered By: Dominic Méndez on 03-23-2023 Calcium [Mass/Vol] 8.8 mg/dL 8.5-10.1 [facility] Serum or plasma creatinine m easurement (mass/volume)Ordered By: Dominic Méndez on 03-23-2023 Creatinine [Mass/Vol] 0.46 mg/dL 0.70-1.30 [facility] Comment on above: The validity of the calculated GFR & GFRAA in patients over 70 years has not been determined. Clinical correlation is essential. Serum or plasma urea nitroge n measurement (mass/volume)Ordered By: Dominic Méndez on 03-23-2023 Urea nitrogen [Mass/Vol] 21 mg/dL 7-18 [facility] Thin prep Papanicolaou smear with manual screeningOrdered By: Dominic Méndez on 03-23-2023 Thin prep Papanicolaou smear with manual screening 3.6 g/dL 3.2-5.0 [facility] Thin prep Papanicolaou smear with manual screening 16 U/L 15-37 [facility] Thin prep Papanicolaou smear with manual screening 5 5-15 [facility] Absolute lymphocyte countOrd ered By: Torey Huffman on 03-01-2023 Lymphocytes Auto (Unsp spec) [#/Vol] 2.53 10*3/uL 0.83-4.51 [facility] Basophil percentageOrdered B y: Torey Huffman on 03-01-2023 Basophil percentage 93 mg/dL 74-106 [facility] Basophil percentage 140 mmol/L 136-145 [facility] Basophil percentage 3.8 mmol/L 3.5-5.1 [facility] Basophil percentage 105 mmol/L 98-107 [facility] Basophils (Bld) [#/Vol] 7.0 10*3/uL 4.4-11.0 [facility] Basophils (Bld) [#/Vol] 3.5 10*3/uL 2.0-7.7 [facility] Basophils/100 WBC (Bld) 0.3 % 0-1 [facility] Basophils/100 WBC (Bld) 49.5 % 47-70 [facility] Basophils/100 WBC (Bld) 4.9 % 0-5 [facility] Chloride [Moles/Vol] 105 mmol/L 98-107 [facility] Eosinophils/100 WBC (Bld) 4.9 % 0-5 [facility] Glucose [Mass/Vol] 93 mg/dL 74-106 [facility] Neutrophils (Bld) [#/Vol] 3.5 10*3/uL 2.0-7.7 [facility] Neutrophils/100 WBC (Bld) 49.5 % 47-70 [facility] Potassium [Moles/Vol] 3.8 mmol/L 3.5-5.1 [facility] Sodium [Moles/Vol] 140 mmol/L 136-145 [facility] WBC (Bld) [#/Vol] 7.0 10*3/uL 4.4-11.0 [facility] Blood erythrocytes count (nu mber/volume)Ordered By: Torey Huffman on 03-01-2023 RBC (Bld) [#/Vol] 4.30 10*6/uL 4.6-6.2 [facility] Blood hemoglobin measurement (mass/volume)Ordered By: Torey Huffman on 03-01-2023 Hemoglobin (Bld) [Mass/Vol] 11.1 g/dL 13.0-16.5 [facility] Blood lymphocytes/100 leukoc ytesOrdered By: Torey Huffman on 03-01-2023 Lymphocytes/100 WBC (Bld) 36.3 % 19-41 [facility] Blood monocytes/100 leukocyt esOrdered By: Torey Huffman on 03-01-2023 Monocytes/100 WBC (Bld) 8.9 % 0-10 [facility] Blood platelet mean volumeOr dered By: Torey Huffman on 03-01-2023 Platelet mean volume (Bld) [Entitic vol] 11.0 fL 6.2-12.0 [facility] Determination of erythrocyte mean corpuscular volume (MCV)Ordered By: Torey Huffman on 03-01-2023 MCV (RBC) [Entitic vol] 83.5 fL 80-94 [facility] Hematocrit Auto (Bld) [Volum e fraction]Ordered By: Torey Huffman on 03-01-2023 Hematocrit (Bld) [Volume fraction] 35.9 % 40-54 [facility] Laboratory - Chemistry and C hemistry - challengeOrdered By: Torey Huffman on 03-01-2023 CO2 [Moles/Vol] 28.0 mmol/L 21.0-32.0 [facility] Urea nitrogen/Creatinine [Mass ratio] 60.6 mg/mg 10-20 [facility] Laboratory - Hematology and Cell countsOrdered By: Torey Huffman on 03-01-2023 Erythrocyte distribution width (RBC) [Entitic vol] 44.3 fL 35.1-43.9 [facility] Erythrocyte distribution width (RBC) [Ratio] 14.6 % 11.6-14.6 [facility] Immature granulocytes/100 WBC (Bld) 0.100 % 0.0-0.9 [facility] Comment on above: IG% - Immature Granu locytes (promyelocytes, myelocytes and metamyelocytes) > 1% indicates that a LEFT SHIFT is Present. MCH (RBC) [Entitic mass] 25.8 pg 27.0-32.0 [facility] Nucleated RBC/100 WBC (Bld) [Ratio] 0 % 0-5 [facility] MCHC Auto (RBC) [Mass/Vol]Or dered By: Torey Huffman on 03-01-2023 MCHC (RBC) [Mass/Vol] 30.9 g/dL 32-36 [facility] No Panel InformationOrdered By: Torey Huffman on 03-01-2023 Estimated GFR (MDRD) Amer 308 mL/min >60 [facility] Comment on above: GFR Calc Estimated GFR (MDRD) Non-Af Amer 255 mL/min >60 [facility] Comment on above: Non- GFR Calc 25.8 pg 27.0-32.0 [facility] 14.6 % 11.6-14.6 [facility] 44.3 fl 35.1-43.9 [facility] 0.100 % 0.0-0.9 [facility] 0 % 0-5 [facility] 255 mL/min >60 [facility] 308 mL/min >60 [facility] 60.6 RATIO 10-20 [facility] 28.0 mmol/L 21.0-32.0 [facility] Platelets bldOrdered By: Mellissa Huffman on 03-01-2023 Platelets (Bld) [#/Vol] 202 10*3/uL 150-450 [facility] Serum or plasma calcium jacinta urement (mass/volume)Ordered By: Torey Huffman on 03-01-2023 Calcium [Mass/Vol] 8.7 mg/dL 8.5-10.1 [facility] Serum or plasma creatinine m easurement (mass/volume)Ordered By: Torey Huffman on 03-01-2023 Creatinine [Mass/Vol] 0.40 mg/dL 0.70-1.30 [facility] Comment on above: The validity of the calculated GFR & GFRAA in patients over 70 years has not been determined. Clinical correlation is essential. Serum or plasma urea nitroge n measurement (mass/volume)Ordered By: Torey Huffman on 03-01-2023 Urea nitrogen [Mass/Vol] 24 mg/dL 7-18 [facility] Thin prep Papanicolaou smear with manual screeningOrdered By: Torey Huffman on 03-01-2023 Thin prep Papanicolaou smear with manual screening 7 5-15 [facility] Absolute lymphocyte countOrd ered By: Torey Huffman on 02-03-2023 Lymphocytes Auto (Unsp spec) [#/Vol] 2.02 10*3/uL 0.83-4.51 [facility] Basophil percentageOrdered B y: Torey Huffman on 02-03-2023 Basophil percentage 103 mg/dL 74-106 [facility] Basophil percentage 139 mmol/L 136-145 [facility] Basophil percentage 3.7 mmol/L 3.5-5.1 [facility] Basophil percentage 105 mmol/L 98-107 [facility] Basophils (Bld) [#/Vol] 5.9 10*3/uL 4.4-11.0 [facility] Basophils (Bld) [#/Vol] 3.0 10*3/uL 2.0-7.7 [facility] Basophils/100 WBC (Bld) 0.3 % 0-1 [facility] Basophils/100 WBC (Bld) 50.5 % 47-70 [facility] Basophils/100 WBC (Bld) 5.6 % 0-5 [facility] Chloride [Moles/Vol] 105 mmol/L 98-107 [facility] Eosinophils/100 WBC (Bld) 5.6 % 0-5 [facility] Glucose [Mass/Vol] 103 mg/dL 74-106 [facility] Comment on above: Fasting Glucose resu lt from 100 to 125 mg/dL suggests IMPAIRED HOMEOSTASIS per A.D.A. criteria. Neutrophils (Bld) [#/Vol] 3.0 10*3/uL 2.0-7.7 [facility] Neutrophils/100 WBC (Bld) 50.5 % 47-70 [facility] Potassium [Moles/Vol] 3.7 mmol/L 3.5-5.1 [facility] Sodium [Moles/Vol] 139 mmol/L 136-145 [facility] WBC (Bld) [#/Vol] 5.9 10*3/uL 4.4-11.0 [facility] Blood erythrocytes count (nu mber/volume)Ordered By: Torey Huffman on 02-03-2023 RBC (Bld) [#/Vol] 3.99 10*6/uL 4.6-6.2 [facility] Blood hemoglobin measurement (mass/volume)Ordered By: Torey Huffman on 02-03-2023 Hemoglobin (Bld) [Mass/Vol] 10.3 g/dL 13.0-16.5 [facility] Blood lymphocytes/100 leukoc ytesOrdered By: Torey Huffman on 02-03-2023 Lymphocytes/100 WBC (Bld) 34.4 % 19-41 [facility] Blood monocytes/100 leukocyt esOrdered By: Torey Huffman on 02-03-2023 Monocytes/100 WBC (Bld) 9.0 % 0-10 [facility] Blood platelet mean volumeOr dered By: Torey Huffman on 02-03-2023 Platelet mean volume (Bld) [Entitic vol] 11.0 fL 6.2-12.0 [facility] Determination of erythrocyte mean corpuscular volume (MCV)Ordered By: Torey Huffman on 02-03-2023 MCV (RBC) [Entitic vol] 83.0 fL 80-94 [facility] Hematocrit Auto (Bld) [Volum e fraction]Ordered By: Torey Huffman on 02-03-2023 Hematocrit (Bld) [Volume fraction] 33.1 % 40-54 [facility] Laboratory - Chemistry and C hemistry - challengeOrdered By: Torey Huffman on 02-03-2023 CO2 [Moles/Vol] 30.0 mmol/L 21.0-32.0 [facility] Urea nitrogen/Creatinine [Mass ratio] 51.6 mg/mg 10-20 [facility] Laboratory - Hematology and Cell countsOrdered By: Torey Huffman on 02-03-2023 Erythrocyte distribution width (RBC) [Entitic vol] 43.8 fL 35.1-43.9 [facility] Erythrocyte distribution width (RBC) [Ratio] 14.4 % 11.6-14.6 [facility] Immature granulocytes/100 WBC (Bld) 0.200 % 0.0-0.9 [facility] Comment on above: IG% - Immature Granu locytes (promyelocytes, myelocytes and metamyelocytes) > 1% indicates that a LEFT SHIFT is Present. MCH (RBC) [Entitic mass] 25.8 pg 27.0-32.0 [facility] Nucleated RBC/100 WBC (Bld) [Ratio] 0 % 0-5 [facility] MCHC Auto (RBC) [Mass/Vol]Or dered By: Torey Huffman on 02-03-2023 MCHC (RBC) [Mass/Vol] 31.1 g/dL 32-36 [facility] No Panel InformationOrdered By: Torey Huffman on 02-03-2023 Estimated GFR (MDRD) Amer 409 mL/min >60 [facility] Comment on above: GFR Calc Estimated GFR (MDRD) Non-Af Amer 338 mL/min >60 [facility] Comment on above: Non- GFR Calc 25.8 pg 27.0-32.0 [facility] 14.4 % 11.6-14.6 [facility] 43.8 fl 35.1-43.9 [facility] 0.200 % 0.0-0.9 [facility] 0 % 0-5 [facility] 338 mL/min >60 [facility] 409 mL/min >60 [facility] 51.6 RATIO 10-20 [facility] 30.0 mmol/L 21.0-32.0 [facility] Platelets bldOrdered By: Mellissa Huffman on 02-03-2023 Platelets (Bld) [#/Vol] 172 10*3/uL 150-450 [facility] Serum or plasma calcium jacinta urement (mass/volume)Ordered By: Torey Huffman on 02-03-2023 Calcium [Mass/Vol] 8.4 mg/dL 8.5-10.1 [facility] Serum or plasma creatinine m easurement (mass/volume)Ordered By: Torey Huffman on 02-03-2023 Creatinine [Mass/Vol] 0.31 mg/dL 0.70-1.30 [facility] Comment on above: The validity of the calculated GFR & GFRAA in patients over 70 years has not been determined. Clinical correlation is essential. Serum or plasma urea nitroge n measurement (mass/volume)Ordered By: Torey Huffman on 02-03-2023 Urea nitrogen [Mass/Vol] 16 mg/dL 7-18 [facility] Thin prep Papanicolaou smear with manual screeningOrdered By: Torey Huffman on 02-03-2023 Thin prep Papanicolaou smear with manual screening 4 5-15 [facility] Absolute lymphocyte countOrd ered By: Amena Smith on 01-16-2023 Lymphocytes Auto (Unsp spec) [#/Vol] 1.47 10*3/uL 0.83-4.51 [facility] Basophil percentageOrdered B y: Amena Smith on 01-16-2023 Basophil percentage 0-5 SEEN /hpf 0-5 [facility] Basophil percentage 97 mg/dL 74-106 [facility] Basophil percentage 137 mmol/L 136-145 [facility] Basophil percentage 3.7 mmol/L 3.5-5.1 [facility] Basophil percentage 105 mmol/L 98-107 [facility] Basophil percentage 0.9 mmol/L 0.4-2.0 [facility] Basophils (Bld) [#/Vol] 8.7 10*3/uL 4.4-11.0 [facility] Basophils (Bld) [#/Vol] 6.6 10*3/uL 2.0-7.7 [facility] Basophils/100 WBC (Bld) 0.1 % 0-1 [facility] Basophils/100 WBC (Bld) 75.2 % 47-70 [facility] Basophils/100 WBC (Bld) 1.1 % 0-5 [facility] Chloride [Moles/Vol] 105 mmol/L 98-107 [facility] E[facility] WBC (Bld) 1.1 % 0-5 [facility] Glucose [Mass/Vol] 97 mg/dL 74-106 [facility] Lactate [Moles/Vol] 0.9 mmol/L 0.4-2.0 [facility] Neutrophils (Bld) [#/Vol] 6.6 10*3/uL 2.0-7.7 [facility] Neutrophils/100 WBC (Bld) 75.2 % 47-70 [facility] Potassium [Moles/Vol] 3.7 mmol/L 3.5-5.1 [facility] Sodium [Moles/Vol] 137 mmol/L 136-145 [facility] WBC (Bld) [#/Vol] 8.7 10*3/uL 4.4-11.0 [facility] Bilirubin Test strip Ql (U)O rdered By: Amena Smith on 01-16-2023 Bilirubin Ql (U) Negative Negative [facility] Blood erythrocytes count (nu mber/volume)Ordered By: Amena Smith on 01-16-2023 RBC (Bld) [#/Vol] 4.46 10*6/uL 4.6-6.2 [facility] Blood hemoglobin measurement (mass/volume)Ordered By: Amena Smith on 01-16-2023 Hemoglobin (Bld) [Mass/Vol] 11.6 g/dL 13.0-16.5 [facility] Blood lymphocytes/100 leukoc ytesOrdered By: Amena Smith on 01-16-2023 Lymphocytes/100 WBC (Bld) 16.8 % 19-41 [facility] Blood monocytes/100 leukocyt esOrdered By: Amena Smith on 01-16-2023 Monocytes/100 WBC (Bld) 6.5 % 0-10 [facility] Blood platelet mean volumeOr dered By: Amena Smith on 01-16-2023 Platelet mean volume (Bld) [Entitic vol] 10.2 fL 6.2-12.0 [facility] Culture, urineOrdered By: Елена Smith on 01-16-2023 Bacteria identified Cx Nom (U) Culture exhibits no growth. [facility] Determination of erythrocyte mean corpuscular volume (MCV)Ordered By: Amena Smith on 01-16-2023 MCV (RBC) [Entitic vol] 84.1 fL 80-94 [facility] Hematocrit Auto (Bld) [Volum e fraction]Ordered By: Amena Smith on 01-16-2023 Hematocrit (Bld) [Volume fraction] 37.5 % 40-54 [facility] Influenza virus A and B and SARS-CoV-2 (COVID-19) Ag panel - Upper respiratory specimOrdered By: Amena Smith on 01-16-2023 SARS-CoV-2 (COVID-19) RNA YAYO+probe Ql (Resp) [facility] Ketones Test strip Ql (U)Ord ered By: Amena Smith on 01-16-2023 Ketones Ql (U) 5 mg/dl Negative [facility] Laboratory - Chemistry and C hemistry - challengeOrdered By: Amena Smith on 01-16-2023 CO2 [Moles/Vol] 28.0 mmol/L 21.0-32.0 [facility] Urea nitrogen/Creatinine [Mass ratio] 69.5 mg/mg 10-20 [facility] Laboratory - Hematology and Cell countsOrdered By: Amena Smith on 01-16-2023 Erythrocyte distribution width (RBC) [Entitic vol] 44.5 fL 35.1-43.9 [facility] Erythrocyte distribution width (RBC) [Ratio] 14.6 % 11.6-14.6 [facility] Immature granulocytes/100 WBC (Bld) 0.300 % 0.0-0.9 [facility] Comment on above: IG% - Immature Granu locytes (promyelocytes, myelocytes and metamyelocytes) > 1% indicates that a LEFT SHIFT is Present. MCH (RBC) [Entitic mass] 26.0 pg 27.0-32.0 [facility] Nucleated RBC/100 WBC (Bld) [Ratio] 0 % 0-5 [facility] Laboratory - Microbiology an d Antimicrobial susceptibilityOrdered By: Amena Smith on 01-16-2023 Bacteria identified Cx Nom (Bld) No growth in 5 days. [facility] MCHC Auto (RBC) [Mass/Vol]Or dered By: Amena Smith on 01-16-2023 MCHC (RBC) [Mass/Vol] 30.9 g/dL 32-36 [facility] Mucus LM Ql (Urine sed)Order ed By: Amena Smith on 01-16-2023 Mucus Ql (Urine sed) 0 SEEN /hpf [facility] Nitrite Test strip Ql (U)Ord ered By: Amena Smith on 01-16-2023 Nitrite Ql (U) Negative Negative [facility] No Panel InformationOrdered By: Amena Smith on 01-16-2023 No growth in 5 days. [facility] Estimated Creatinine Clearance Calc 231.48 ml/min [facility] Estimated GFR (MDRD) Amer 422 mL/min >60 [facility] Comment on above: GFR Calc Estimated GFR (MDRD) Non-Af Amer 349 mL/min >60 [facility] Comment on above: Non- GFR Calc 26.0 pg 27.0-32.0 [facility] 14.6 % 11.6-14.6 [facility] 44.5 fl 35.1-43.9 [facility] 0.300 % 0.0-0.9 [facility] 0 % 0-5 [facility] 349 mL/min >60 [facility] 422 mL/min >60 [facility] 231.48 ml/min [facility] 69.5 RATIO 10-20 [facility] 28.0 mmol/L 21.0-32.0 [facility] No Panel InformationOrdered By: Dalton Lester on 01-16-2023 Troponin I High Sensitivity 4 pg/mL 3.0-78.0 [facility] Comment on above: Please Note: New Suha t Units and Gender Specific Reference Ranges. For more information see Policy Stat Procedure [place] High Sensitivity Troponin (TNIH) and attachments. 4 pg/mL 3.0-78.0 [facility] Platelets bldOrdered By: Marjorie Smith on 01-16-2023 Platelets (Bld) [#/Vol] 206 10*3/uL 150-450 [facility] Protein Test strip Ql (U)Ord ered By: Amena Smith on 01-16-2023 Protein Ql (U) 30 mg/dl Negative [facility] Serum or plasma calcium jacinta urement (mass/volume)Ordered By: Amena Smith on 01-16-2023 Calcium [Mass/Vol] 8.3 mg/dL 8.5-10.1 [facility] Serum or plasma creatinine m easurement (mass/volume)Ordered By: Amena Smith on 01-16-2023 Creatinine [Mass/Vol] 0.30 mg/dL 0.70-1.30 [facility] Comment on above: The validity of the calculated GFR & GFRAA in patients over 70 years has not been determined. Clinical correlation is essential. Serum or plasma urea nitroge n measurement (mass/volume)Ordered By: Amena Smith on 01-16-2023 Urea nitrogen [Mass/Vol] 21 mg/dL 7-18 [facility] Squamous epithelial cells de tection in urine sediment by light microscopyOrdered By: Amena Smith on 01-16-2023 Epithelial cells.squamous LM Ql (Urine sed) 0 SEEN /hpf 0-5 [facility] Thin prep Papanicolaou smear with manual screeningOrdered By: Amena Smith on 01-16-2023 Thin prep Papanicolaou smear with manual screening 4 5-15 [facility] Upper respiratory specimen i nfluenza A virus, influenza B virus, and severe acute respiratory syndromOrdered By: Amena Smith on 01-16-2023 Upper respiratory specimen influenza A virus, influenza B virus, and severe acute respiratory syndrom [facility] Urine blood detectionOrdered By: Amena Smith on 01-16-2023 RBC Ql (U) 10 /ul Negative [facility] RBC Ql (U) 0 SEEN /hpf 0-5 [facility] Urine clarityOrdered By: Marjorie Smith on 01-16-2023 Clarity (U) Clear Clear [facility] Urine color determinationOrd ered By: Amena Smith on 01-16-2023 Color (U) Yellow Yellow [facility] Urine glucose detectionOrder ed By: Amena Smith on 01-16-2023 Glucose Ql (U) Normal mg/dl Normal [facility] Urine leukocyte esterase det ection by dipstickOrdered By: Amena Smith on 01-16-2023 Leukocyte esterase Test strip Ql (U) 25 /ul Negative [facility] Urine pHOrdered By: Amena simons on 01-16-2023 pH (U) 6.0 [pH] 5.0 - 8.0 [facility] Urine sediment bacteria coun t by microscopy (number/high power field)Ordered By: Amena Smith on 01-16-2023 Bacteria LM.HPF (Urine sed) [#/Area] 0 /[HPF] None Seen [facility] Urine specific gravity measu rementOrdered By: Amena Smith on 01-16-2023 Specific gravity (U) [Rel density] 1.025 1.002-1.030 [facility] Urobilinogen Auto test strip Ql (U)Ordered By: Amena Smith on 01-16-2023 Urobilinogen Ql (U) Normal mg/dl Normal [facility] Absolute lymphocyte countOrd ered By: Torey Huffman on 01-04-2023 Lymphocytes Auto (Unsp spec) [#/Vol] 2.04 10*3/uL 0.83-4.51 [facility] Basophil percentageOrdered B y: Torey Huffman on 01-04-2023 Basophil percentage 91 mg/dL 74-106 [facility] Basophil percentage 141 mmol/L 136-145 [facility] Basophil percentage 3.9 mmol/L 3.5-5.1 [facility] Basophil percentage 105 mmol/L 98-107 [facility] Basophils (Bld) [#/Vol] 6.9 10*3/uL 4.4-11.0 [facility] Basophils (Bld) [#/Vol] 3.9 10*3/uL 2.0-7.7 [facility] Basophils/100 WBC (Bld) 0.3 % 0-1 [facility] Basophils/100 WBC (Bld) 57.1 % 47-70 [facility] Basophils/100 WBC (Bld) 4.4 % 0-5 [facility] Chloride [Moles/Vol] 105 mmol/L 98-107 [facility] Eosinophils/100 WBC (Bld) 4.4 % 0-5 [facility] Glucose [Mass/Vol] 91 mg/dL 74-106 [facility] Neutrophils (Bld) [#/Vol] 3.9 10*3/uL 2.0-7.7 [facility] Neutrophils/100 WBC (Bld) 57.1 % 47-70 [facility] Potassium [Moles/Vol] 3.9 mmol/L 3.5-5.1 [facility] Sodium [Moles/Vol] 141 mmol/L 136-145 [facility] WBC (Bld) [#/Vol] 6.9 10*3/uL 4.4-11.0 [facility] Blood erythrocytes count (nu mber/volume)Ordered By: Torey Huffman on 01-04-2023 RBC (Bld) [#/Vol] 4.11 10*6/uL 4.6-6.2 [facility] Blood hemoglobin measurement (mass/volume)Ordered By: Torey Huffman on 01-04-2023 Hemoglobin (Bld) [Mass/Vol] 10.6 g/dL 13.0-16.5 [facility] Blood lymphocytes/100 leukoc ytesOrdered By: Torey Huffman on 01-04-2023 Lymphocytes/100 WBC (Bld) 29.7 % 19-41 [facility] Blood monocytes/100 leukocyt esOrdered By: Torey Huffman on 01-04-2023 Monocytes/100 WBC (Bld) 8.4 % 0-10 [facility] Blood platelet mean volumeOr dered By: Torey Huffman on 01-04-2023 Platelet mean volume (Bld) [Entitic vol] 10.3 fL 6.2-12.0 [facility] Determination of erythrocyte mean corpuscular volume (MCV)Ordered By: Torey Huffman on 01-04-2023 MCV (RBC) [Entitic vol] 84.9 fL 80-94 [facility] Hematocrit Auto (Bld) [Volum e fraction]Ordered By: Torey Huffman on 01-04-2023 Hematocrit (Bld) [Volume fraction] 34.9 % 40-54 [facility] Laboratory - Chemistry and C hemistry - challengeOrdered By: Torey Huffman on 01-04-2023 CO2 [Moles/Vol] 31.0 mmol/L 21.0-32.0 [facility] Urea nitrogen/Creatinine [Mass ratio] 65.4 mg/mg 10-20 [facility] Laboratory - Hematology and Cell countsOrdered By: Torey Huffman on 01-04-2023 Erythrocyte distribution width (RBC) [Entitic vol] 45.1 fL 35.1-43.9 [facility] Erythrocyte distribution width (RBC) [Ratio] 14.6 % 11.6-14.6 [facility] Immature granulocytes/100 WBC (Bld) 0.100 % 0.0-0.9 [facility] Comment on above: IG% - Immature Granu locytes (promyelocytes, myelocytes and metamyelocytes) > 1% indicates that a LEFT SHIFT is Present. MCH (RBC) [Entitic mass] 25.8 pg 27.0-32.0 [facility] Nucleated RBC/100 WBC (Bld) [Ratio] 0 % 0-5 [facility] MCHC Auto (RBC) [Mass/Vol]Or dered By: Torey Huffman on 01-04-2023 MCHC (RBC) [Mass/Vol] 30.4 g/dL 32-36 [facility] No Panel InformationOrdered By: Torey Huffman on 01-04-2023 Estimated GFR (MDRD) Amer 501 mL/min >60 [facility] Comment on above: GFR Calc Estimated GFR (MDRD) Non-Af Amer 414 mL/min >60 [facility] Comment on above: Non- GFR Calc 25.8 pg 27.0-32.0 [facility] 14.6 % 11.6-14.6 [facility] 45.1 fl 35.1-43.9 [facility] 0.100 % 0.0-0.9 [facility] 0 % 0-5 [facility] 414 mL/min >60 [facility] 501 mL/min >60 [facility] 65.4 RATIO 10-20 [facility] 31.0 mmol/L 21.0-32.0 [facility] Platelets bldOrdered By: Mellissa Huffman on 01-04-2023 Platelets (Bld) [#/Vol] 172 10*3/uL 150-450 [facility] Serum or plasma calcium jacinta urement (mass/volume)Ordered By: Torey Huffman on 01-04-2023 Calcium [Mass/Vol] 8.1 mg/dL 8.5-10.1 [facility] Serum or plasma creatinine m easurement (mass/volume)Ordered By: Torey Huffman on 01-04-2023 Creatinine [Mass/Vol] 0.26 mg/dL 0.70-1.30 [facility] Comment on above: The validity of the calculated GFR & GFRAA in patients over 70 years has not been determined. Clinical correlation is essential. Serum or plasma urea nitroge n measurement (mass/volume)Ordered By: Torey Huffman on 01-04-2023 Urea nitrogen [Mass/Vol] 17 mg/dL 7-18 [facility] Thin prep Papanicolaou smear with manual screeningOrdered By: Torey Huffman on 01-04-2023 Thin prep Papanicolaou smear with manual screening 5 5-15 [facility] Basophil percentageOrdered B y: Donte Abebe on 12-13-2022 Basophil percentage 116 mg/dL 74-106 [facility] Basophil percentage 141 mmol/L 136-145 [facility] Basophil percentage 3.4 mmol/L 3.5-5.1 [facility] Basophil percentage 109 mmol/L 98-107 [facility] Basophils (Bld) [#/Vol] 7.6 10*3/uL 4.4-11.0 [facility] Chloride [Moles/Vol] 109 mmol/L 98-107 [facility] Glucose [Mass/Vol] 116 mg/dL 74-106 [facility] Comment on above: Fasting Glucose resu lt from 100 to 125 mg/dL suggests IMPAIRED HOMEOSTASIS per A.D.A. criteria. Potassium [Moles/Vol] 3.4 mmol/L 3.5-5.1 [facility] Sodium [Moles/Vol] 141 mmol/L 136-145 [facility] WBC (Bld) [#/Vol] 7.6 10*3/uL 4.4-11.0 [facility] Blood erythrocytes count (nu mber/volume)Ordered By: Donte Abebe on 12-13-2022 RBC (Bld) [#/Vol] 3.74 10*6/uL 4.6-6.2 [facility] Blood hemoglobin measurement (mass/volume)Ordered By: Donte Abebe on 12-13-2022 Hemoglobin (Bld) [Mass/Vol] 9.9 g/dL 13.0-16.5 [facility] Blood platelet mean volumeOr dered By: Donte Abebe on 12-13-2022 Platelet mean volume (Bld) [Entitic vol] 9.9 fL 6.2-12.0 [facility] Determination of erythrocyte mean corpuscular volume (MCV)Ordered By: Donte Abebe on 12-13-2022 MCV (RBC) [Entitic vol] 87.4 fL 80-94 [facility] Hematocrit Auto (Bld) [Volum e fraction]Ordered By: Donte Abebe on 12-13-2022 Hematocrit (Bld) [Volume fraction] 32.7 % 40-54 [facility] Laboratory - Chemistry and C hemistry - challengeOrdered By: Donte Abebe on 12-13-2022 CO2 [Moles/Vol] 27.0 mmol/L 21.0-32.0 [facility] Urea nitrogen/Creatinine [Mass ratio] 47.2 mg/mg 12-11 [facility] Laboratory - Hematology and Cell countsOrdered By: Donte Abebe on 12-13-2022 Erythrocyte distribution width (RBC) [Entitic vol] 46.0 fL 35.1-43.9 [facility] Erythrocyte distribution width (RBC) [Ratio] 14.4 % 11.6-14.6 [facility] MCH (RBC) [Entitic mass] 26.5 pg 27.0-32.0 [facility] MCHC Auto (RBC) [Mass/Vol]Or dered By: Donte Abebe on 12-13-2022 MCHC (RBC) [Mass/Vol] 30.3 g/dL 32-36 [facility] No Panel InformationOrdered By: Donte Abebe on 12-13-2022 Estimated Creatinine Clearance Calc 277.78 ml/min [facility] Estimated GFR (MDRD) Amer 515 mL/min >60 [facility] Comment on above: GFR Calc Estimated GFR (MDRD) Non-Af Amer 426 mL/min >60 [facility] Comment on above: Non- GFR Calc 26.5 pg 27.0-32.0 [facility] 14.4 % 11.6-14.6 [facility] 46.0 fl 35.1-43.9 [facility] 426 mL/min >60 [facility] 515 mL/min >60 [facility] 277.78 ml/min [facility] 47.2 RATIO 12-11 [facility] 27.0 mmol/L 21.0-32.0 [facility] Platelets bldOrdered By: Sho Abebe on 12-13-2022 Platelets (Bld) [#/Vol] 166 10*3/uL 150-450 [facility] Serum or plasma calcium jacinta urement (mass/volume)Ordered By: Donte bAebe on 12-13-2022 Calcium [Mass/Vol] 7.4 mg/dL 8.5-10.1 [facility] Serum or plasma creatinine m easurement (mass/volume)Ordered By: Donte Abebe on 12-13-2022 Creatinine [Mass/Vol] 0.25 mg/dL 0.70-1.30 [facility] Comment on above: The validity of the calculated GFR & GFRAA in patients over 70 years has not been determined. Clinical correlation is essential. Serum or plasma urea nitroge n measurement (mass/volume)Ordered By: Donte Abebe on 12-13-2022 Urea nitrogen [Mass/Vol] 12 mg/dL 7-18 [facility] Thin prep Papanicolaou smear with manual screeningOrdered By: Donte Abebe on 12-13-2022 Thin prep Papanicolaou smear with manual screening 5 5-15 [facility] Basophil percentageOrdered B y: Donte Abebe on 12-11-2022 Chloride [Moles/Vol] 111 mmol/L 98-107 [facility] Glucose [Mass/Vol] 101 mg/dL 74-106 [facility] Comment on above: Fasting Glucose resu lt from 100 to 125 mg/dL suggests IMPAIRED HOMEOSTASIS per A.D.A. criteria. Potassium [Moles/Vol] 2.8 mmol/L 3.5-5.1 [facility] Sodium [Moles/Vol] 144 mmol/L 136-145 [facility] WBC (Bld) [#/Vol] 7.6 10*3/uL 4.4-11.0 [facility] Blood erythrocytes count (nu mber/volume)Ordered By: Donte Abebe on 12-11-2022 RBC (Bld) [#/Vol] 3.90 10*6/uL 4.6-6.2 [facility] Blood hemoglobin measurement (mass/volume)Ordered By: Donte Abebe on 12-11-2022 Hemoglobin (Bld) [Mass/Vol] 10.3 g/dL 13.0-16.5 [facility] Blood platelet mean volumeOr dered By: Donte Abebe on 12-11-2022 Platelet mean volume (Bld) [Entitic vol] 9.9 fL 6.2-12.0 [facility] Determination of erythrocyte mean corpuscular volume (MCV)Ordered By: Donte Abebe on 12-11-2022 MCV (RBC) [Entitic vol] 85.9 fL 80-94 [facility] Hematocrit Auto (Bld) [Volum e fraction]Ordered By: Donte Abebe on 12-11-2022 Hematocrit (Bld) [Volume fraction] 33.5 % 40-54 [facility] Laboratory - Chemistry and C hemistry - challengeOrdered By: Donte Abebe on 12-11-2022 CO2 [Moles/Vol] 29.0 mmol/L 21.0-32.0 [facility] Urea nitrogen/Creatinine [Mass ratio] 69.8 mg/mg 12-11 [facility] Laboratory - Hematology and Cell countsOrdered By: Donte Abebe on 12-11-2022 Erythrocyte distribution width (RBC) [Entitic vol] 44.6 fL 35.1-43.9 [facility] Erythrocyte distribution width (RBC) [Ratio] 14.4 % 11.6-14.6 [facility] MCH (RBC) [Entitic mass] 26.4 pg 27.0-32.0 [facility] MCHC Auto (RBC) [Mass/Vol]Or dered By: Donte Abebe on 12-11-2022 MCHC (RBC) [Mass/Vol] 30.7 g/dL 32-36 [facility] No Panel InformationOrdered By: Donte Abebe on 12-11-2022 Estimated Creatinine Clearance Calc 267.09 ml/min [facility] Estimated GFR (MDRD) Amer 506 mL/min >60 [facility] Comment on above: GFR Calc Estimated GFR (MDRD) Non-Af Amer 418 mL/min >60 [facility] Comment on above: Non- GFR Calc Platelets bldOrdered By: Sho Abebe on 12-11-2022 Platelets (Bld) [#/Vol] 183 10*3/uL 150-450 [facility] Serum or plasma calcium jacinta urement (mass/volume)Ordered By: Donte Abebe on 12-11-2022 Calcium [Mass/Vol] 7.8 mg/dL 8.5-10.1 [facility] Serum or plasma creatinine m easurement (mass/volume)Ordered By: Donte Abebe on 12-11-2022 Creatinine [Mass/Vol] 0.26 mg/dL 0.70-1.30 [facility] Comment on above: The validity of the calculated GFR & GFRAA in patients over 70 years has not been determined. Clinical correlation is essential. Serum or plasma urea nitroge n measurement (mass/volume)Ordered By: Donte Abebe on 12-11-2022 Urea nitrogen [Mass/Vol] 18 mg/dL 7-18 [facility] Thin prep Papanicolaou smear with manual screeningOrdered By: Donte Abebe on 12-11-2022 Thin prep Papanicolaou smear with manual screening 4 5-15 [facility] Absolute lymphocyte countOrd ered By: Miky Pio on 12-10-2022 Lymphocytes Auto (Unsp spec) [#/Vol] 2.23 10*3/uL 0.83-4.51 [facility] Basophil percentageOrdered B y: Miky Rahman on 12-10-2022 Basophil percentage 8.7 g/dL 6.4-8.2 [facility] Basophil percentage 0.20 mg/dL 0.20-1.00 [facility] Basophils (Bld) [#/Vol] 8.4 10*3/uL 2.0-7.7 [facility] Basophils/100 WBC (Bld) 0.2 % 0-1 [facility] Basophils/100 WBC (Bld) 72.2 % 47-70 [facility] Basophils/100 WBC (Bld) 2.1 % 0-5 [facility] Bilirubin [Mass/Vol] 0.20 mg/dL 0.20-1.00 [facility] Comment on above: For patients on eltr ombopag therapy, use of Dimension [place] TBIL is not recommended. Chloride [Moles/Vol] 105 mmol/L 98-107 [facility] Eosinophils/100 WBC (Bld) 2.1 % 0-5 [facility] Glucose [Mass/Vol] 109 mg/dL 74-106 [facility] Comment on above: Fasting Glucose resu lt from 100 to 125 mg/dL suggests IMPAIRED HOMEOSTASIS per A.D.A. criteria. Neutrophils (Bld) [#/Vol] 8.4 10*3/uL 2.0-7.7 [facility] Neutrophils/100 WBC (Bld) 72.2 % 47-70 [facility] Potassium [Moles/Vol] 3.8 mmol/L 3.5-5.1 [facility] Protein [Mass/Vol] 8.7 g/dL 6.4-8.2 [facility] Sodium [Moles/Vol] 140 mmol/L 136-145 [facility] WBC (Bld) [#/Vol] 11.6 10*3/uL 4.4-11.0 [facility] Blood erythrocytes count (nu mber/volume)Ordered By: Miky Rahman on 12-10-2022 RBC (Bld) [#/Vol] 4.77 10*6/uL 4.6-6.2 [facility] Blood hemoglobin measurement (mass/volume)Ordered By: Miky Rahman on 12-10-2022 Hemoglobin (Bld) [Mass/Vol] 12.6 g/dL 13.0-16.5 [facility] Blood lymphocytes/100 leukoc ytesOrdered By: Miky Rahman on 12-10-2022 Lymphocytes/100 WBC (Bld) 19.2 % 19-41 [facility] Blood monocytes/100 leukocyt esOrdered By: Miky Rahman on 12-10-2022 Monocytes/100 WBC (Bld) 5.9 % 0-10 [facility] Blood platelet mean volumeOr dered By: Miky Rahman on 12-10-2022 Platelet mean volume (Bld) [Entitic vol] 10.0 fL 6.2-12.0 [facility] Determination of erythrocyte mean corpuscular volume (MCV)Ordered By: Miky Rahman on 12-10-2022 MCV (RBC) [Entitic vol] 83.4 fL 80-94 [facility] Hematocrit Auto (Bld) [Volum e fraction]Ordered By: Miky Rahman on 12-10-2022 Hematocrit (Bld) [Volume fraction] 39.8 % 40-54 [facility] INR in Blood by Coagulation assayOrdered By: Miky Rahman on 12-10-2022 INR Coag (Bld) [Relative time] 1.0 {INR} [facility] Laboratory - Chemistry and C hemistry - challengeOrdered By: Miky Rahman on 12-10-2022 ALP [Catalytic activity/Vol] 144 U/L 45-117 [facility] ALT [Catalytic activity/Vol] 29 U/L 16-61 [facility] CO2 [Moles/Vol] 29.0 mmol/L 21.0-32.0 [facility] Globulin (S) [Mass/Vol] 5.4 g/dL 2.2-4.2 [facility] Lipase [Catalytic activity/Vol] 58 U/L 13-75 [facility] Comment on above: Please note:LIPASE r evised reference range effective 22. New Lipase methodology. Expected to produce lower values than the previous assay method. NEW Reference Range: 13 - 75 U/L Urea nitrogen/Creatinine [Mass ratio] 45.3 mg/mg 10-20 [facility] Laboratory - CoagulationOrde red By: Miky Rahman on 12-10-2022 aPTT Coag (Bld) [Time] 35.6 s 24.1-36.2 [facility] PT Coag (PPP) [Time] 13.4 s 11.7-14.9 [facility] Laboratory - Hematology and Cell countsOrdered By: Miky Rahman on 12-10-2022 Erythrocyte distribution width (RBC) [Entitic vol] 42.8 fL 35.1-43.9 [facility] Erythrocyte distribution width (RBC) [Ratio] 14.0 % 11.6-14.6 [facility] Immature granulocytes/100 WBC (Bld) 0.400 % 0.0-0.9 [facility] Comment on above: IG% - Immature Granu locytes (promyelocytes, myelocytes and metamyelocytes) > 1% indicates that a LEFT SHIFT is Present. MCH (RBC) [Entitic mass] 26.4 pg 27.0-32.0 [facility] Nucleated RBC/100 WBC (Bld) [Ratio] 0 % 0-5 [facility] MCHC Auto (RBC) [Mass/Vol]Or dered By: Miky Rahman on 12-10-2022 MCHC (RBC) [Mass/Vol] 31.7 g/dL 32-36 [facility] No Panel InformationOrdered By: Miky Rahman on 12-10-2022 Estimated Creatinine Clearance Calc 198.41 ml/min [facility] Estimated GFR (MDRD) Amer 352 mL/min >60 [facility] Comment on above: GFR Calc Estimated GFR (MDRD) Non-Af Amer 291 mL/min >60 [facility] Comment on above: Non- GFR Calc 0.400 % 0.0-0.9 [facility] 0 % 0-5 [facility] 13.4 SECONDS 11.7-14.9 [facility] 35.6 Seconds 24.1-36.2 [facility] 5.4 g/dL 2.2-4.2 [facility] 58 U/L 13-75 [facility] 144 U/L 45-117 [facility] 29 U/L 16-61 [facility] Platelets bldOrdered By: Maximus Rahman on 12-10-2022 Platelets (Bld) [#/Vol] 228 10*3/uL 150-450 [facility] [facility] Serum or plasma albumin jacinta urement (mass/volume)Ordered By: Miky Rahman on 12-10-2022 Albumin [Mass/Vol] 3.3 g/dL 3.2-5.0 [facility] Serum or plasma albumin/glob ulin mass ratioOrdered By: Miky Rahman on 12-10-2022 Albumin/Globulin [Mass ratio] 0.6 {ratio} 0.9-2.4 [facility] Serum or plasma calcium jacinta urement (mass/volume)Ordered By: Miky Rahman on 12-10-2022 Calcium [Mass/Vol] 8.6 mg/dL 8.5-10.1 [facility] Serum or plasma creatinine m easurement (mass/volume)Ordered By: Miky Rahman on 12-10-2022 Creatinine [Mass/Vol] 0.35 mg/dL 0.70-1.30 [facility] Comment on above: The validity of the calculated GFR & GFRAA in patients over 70 years has not been determined. Clinical correlation is essential. Serum or plasma urea nitroge n measurement (mass/volume)Ordered By: Miky Rahman on 12-10-2022 Urea nitrogen [Mass/Vol] 16 mg/dL 7-18 [facility] Thin prep Papanicolaou smear with manual screeningOrdered By: Miky Rahman on 12-10-2022 Thin prep Papanicolaou smear with manual screening 19 U/L 15-37 [facility] Thin prep Papanicolaou smear with manual screening 6 5-15 [facility] Absolute lymphocyte countOrd ered By: Torey Huffman on 12-07-2022 Lymphocytes Auto (Unsp spec) [#/Vol] 2.35 10*3/uL 0.83-4.51 [facility] Basophil percentageOrdered B y: Torey Huffman on 12-07-2022 Basophil percentage 100 mg/dL 74-106 [facility] Basophil percentage 139 mmol/L 136-145 [facility] Basophil percentage 3.5 mmol/L 3.5-5.1 [facility] Basophil percentage 104 mmol/L 98-107 [facility] Basophils (Bld) [#/Vol] 6.7 10*3/uL 4.4-11.0 [facility] Basophils (Bld) [#/Vol] 3.4 10*3/uL 2.0-7.7 [facility] Basophils/100 WBC (Bld) 0.3 % 0-1 [facility] Basophils/100 WBC (Bld) 50.3 % 47-70 [facility] Basophils/100 WBC (Bld) 5.3 % 0-5 [facility] Chloride [Moles/Vol] 104 mmol/L 98-107 [facility] Eosinophils/100 WBC (Bld) 5.3 % 0-5 [facility] Glucose [Mass/Vol] 100 mg/dL 74-106 [facility] Comment on above: Fasting Glucose resu lt from 100 to 125 mg/dL suggests IMPAIRED HOMEOSTASIS per A.D.A. criteria. Neutrophils (Bld) [#/Vol] 3.4 10*3/uL 2.0-7.7 [facility] Neutrophils/100 WBC (Bld) 50.3 % 47-70 [facility] Potassium [Moles/Vol] 3.5 mmol/L 3.5-5.1 [facility] Sodium [Moles/Vol] 139 mmol/L 136-145 [facility] WBC (Bld) [#/Vol] 6.7 10*3/uL 4.4-11.0 [facility] Blood erythrocytes count (nu mber/volume)Ordered By: Torey Huffman on 12-07-2022 RBC (Bld) [#/Vol] 4.10 10*6/uL 4.6-6.2 [facility] Blood hemoglobin measurement (mass/volume)Ordered By: Torey Huffman on 12-07-2022 Hemoglobin (Bld) [Mass/Vol] 10.8 g/dL 13.0-16.5 [facility] Blood lymphocytes/100 leukoc ytesOrdered By: Torey Huffman on 12-07-2022 Lymphocytes/100 WBC (Bld) 34.9 % 19-41 [facility] Blood monocytes/100 leukocyt esOrdered By: Torey Huffman on 12-07-2022 Monocytes/100 WBC (Bld) 8.9 % 0-10 [facility] Blood platelet mean volumeOr dered By: Torey Huffman on 12-07-2022 Platelet mean volume (Bld) [Entitic vol] 10.7 fL 6.2-12.0 [facility] Determination of erythrocyte mean corpuscular volume (MCV)Ordered By: Torey Huffman on 12-07-2022 MCV (RBC) [Entitic vol] 86.3 fL 80-94 [facility] Hematocrit Auto (Bld) [Volum e fraction]Ordered By: Torey Huffman on 12-07-2022 Hematocrit (Bld) [Volume fraction] 35.4 % 40-54 [facility] Laboratory - Chemistry and C hemistry - challengeOrdered By: Torey Huffman on 12-07-2022 CO2 [Moles/Vol] 30.0 mmol/L 21.0-32.0 [facility] Urea nitrogen/Creatinine [Mass ratio] 58.1 mg/mg 10-20 [facility] Laboratory - Hematology and Cell countsOrdered By: Torey Huffman on 12-07-2022 Erythrocyte distribution width (RBC) [Entitic vol] 43.8 fL 35.1-43.9 [facility] Erythrocyte distribution width (RBC) [Ratio] 13.9 % 11.6-14.6 [facility] Immature granulocytes/100 WBC (Bld) 0.300 % 0.0-0.9 [facility] Comment on above: IG% - Immature Granu locytes (promyelocytes, myelocytes and metamyelocytes) > 1% indicates that a LEFT SHIFT is Present. MCH (RBC) [Entitic mass] 26.3 pg 27.0-32.0 [facility] Nucleated RBC/100 [facility]) [[facility]] [facility] [Mass/Vol]Or dered By: Torey Huffman on 12-07-2022 MCHC (RBC) [Mass/Vol] 30.5 g/dL 32-36 [facility] No Panel InformationOrdered By: Torey Huffman on 12-07-2022 Estimated GFR (MDRD) Amer 385 mL/min >60 [facility] Comment on above: GFR Calc Estimated GFR (MDRD) Non-Af Amer 318 mL/min >60 [facility] Comment on above: Non- GFR Calc 26.3 pg 27.0-32.0 [facility] 13.9 % 11.6-14.6 [facility] 43.8 fl 35.1-43.9 [facility] 0.300 % 0.0-0.9 [facility] 0 % 0-5 [facility] 318 mL/min >60 [facility] 385 mL/min >60 [facility] 58.1 RATIO 10-20 [facility] 30.0 mmol/L 21.0-32.0 [facility] Platelets bldOrdered By: Mellissa Huffman on 12-07-2022 Platelets (Bld) [#/Vol] 208 10*3/uL 150-450 [facility] Serum or plasma calcium jacinta urement (mass/volume)Ordered By: Torey Huffman on 12-07-2022 Calcium [Mass/Vol] 8.3 mg/dL 8.5-10.1 [facility] Serum or plasma creatinine m easurement (mass/volume)Ordered By: Torey Huffman on 12-07-2022 Creatinine [Mass/Vol] 0.33 mg/dL 0.70-1.30 [facility] Comment on above: The validity of the calculated GFR & GFRAA in patients over 70 years has not been determined. Clinical correlation is essential. Serum or plasma urea nitroge n measurement (mass/volume)Ordered By: Torey Huffman on 12-07-2022 Urea nitrogen [Mass/Vol] 19 mg/dL 7-18 [facility] Thin prep Papanicolaou smear with manual screeningOrdered By: Torey Huffman on 10-16-2023 Thin prep Papanicolaou smear with manual screening 5 5-15 [facility] Absolute lymphocyte countOrd ered By: Torey Huffman on 11-12-2022 Lymphocytes Auto (Unsp spec) [#/Vol] 2.33 10*3/uL 0.83-4.51 [facility] Basophil percentageOrdered B y: Torey Huffman on 11-12-2022 Basophils/100 WBC (Bld) 0.1 % 0-1 [facility] Chloride [Moles/Vol] 104 mmol/L 98-107 [facility] Eosinophils/100 WBC (Bld) 4.2 % 0-5 [facility] Glucose [Mass/Vol] 99 mg/dL 74-106 [facility] Neutrophils (Bld) [#/Vol] 4.4 10*3/uL 2.0-7.7 [facility] Neutrophils/100 WBC (Bld) 56.0 % 47-70 [facility] Potassium [Moles/Vol] 3.6 mmol/L 3.5-5.1 [facility] Sodium [Moles/Vol] 140 mmol/L 136-145 [facility] WBC (Bld) [#/Vol] 7.8 10*3/uL 4.4-11.0 [facility] Blood erythrocytes count (nu mber/volume)Ordered By: Torey Huffman on 11-12-2022 RBC (Bld) [#/Vol] 4.11 10*6/uL 4.6-6.2 [facility] Blood hemoglobin measurement (mass/volume)Ordered By: Torey Huffman on 11-12-2022 Hemoglobin (Bld) [Mass/Vol] 10.9 g/dL 13.0-16.5 [facility] Blood lymphocytes/100 leukoc ytesOrdered By: Torey Huffman on 11-12-2022 Lymphocytes/100 WBC (Bld) 29.7 % 19-41 [facility] Blood monocytes/100 leukocyt esOrdered By: Torey Huffman on 11-12-2022 Monocytes/100 WBC (Bld) 9.7 % 0-10 [facility] Blood platelet mean volumeOr dered By: Torey Huffman on 11-12-2022 Platelet mean volume (Bld) [Entitic vol] 10.3 fL 6.2-12.0 [facility] Determination of erythrocyte mean corpuscular volume (MCV)Ordered By: Torey Huffman on 11-12-2022 MCV (RBC) [Entitic vol] 86.6 fL 80-94 [facility] Hematocrit Auto (Bld) [Volum e fraction]Ordered By: Torey Huffman on 11-12-2022 Hematocrit (Bld) [Volume fraction] 35.6 % 40-54 [facility] Laboratory - Chemistry and C hemistry - challengeOrdered By: Torey Huffman on 11-12-2022 CO2 [Moles/Vol] 31.0 mmol/L 21.0-32.0 [facility] Urea nitrogen/Creatinine [Mass ratio] 81.1 mg/mg 10-20 [facility] Laboratory - Hematology and Cell countsOrdered By: Torey Huffman on 11-12-2022 Erythrocyte distribution width (RBC) [Entitic vol] 43.8 fL 35.1-43.9 [facility] Erythrocyte distribution width (RBC) [Ratio] 13.9 % 11.6-14.6 [facility] Immature granulocytes/100 WBC (Bld) 0.300 % 0.0-0.9 [facility] Comment on above: IG% - Immature Granu locytes (promyelocytes, myelocytes and metamyelocytes) > 1% indicates that a LEFT SHIFT is Present. MCH (RBC) [Entitic mass] 26.5 pg 27.0-32.0 [facility] Nucleated RBC/100 WBC (Bld) [Ratio] 0 % 0-5 [facility] MCHC Auto (RBC) [Mass/Vol]Or dered By: Torey Huffman on 11-12-2022 MCHC (RBC) [Mass/Vol] 30.6 g/dL 32-36 [facility] No Panel InformationOrdered By: Torey Huffman on 11-12-2022 Estimated GFR (MDRD) Amer 743 mL/min >60 [facility] Comment on above: GFR Calc Estimated GFR (MDRD) Non-Af Amer 614 mL/min >60 [facility] Comment on above: Non- GFR Calc Platelets bldOrdered By: Mellissa Huffman on 11-12-2022 Platelets (Bld) [#/Vol] 212 10*3/uL 150-450 [facility] Serum or plasma calcium jacinta urement (mass/volume)Ordered By: Torey Huffman on 11-12-2022 Calcium [Mass/Vol] 8.4 mg/dL 8.5-10.1 [facility] Serum or plasma creatinine m easurement (mass/volume)Ordered By: Torey Huffman on 11-12-2022 Creatinine [Mass/Vol] 0.18 mg/dL 0.70-1.30 [facility] Comment on above: The validity of the calculated GFR & GFRAA in patients over 70 years has not been determined. Clinical correlation is essential. Serum or plasma urea nitroge n measurement (mass/volume)Ordered By: Torey Huffman on 11-12-2022 Urea nitrogen [Mass/Vol] 15 mg/dL 7-18 [facility] Thin prep Papanicolaou smear with manual screeningOrdered By: Torey Huffman on 11-12-2022 Thin prep Papanicolaou smear with manual screening 5 5-15 [facility] Absolute lymphocyte countOrd ered By: Torey Huffman on 10-14-2022 Lymphocytes Auto (Unsp spec) [#/Vol] 2.10 10*3/uL 0.83-4.51 [facility] Basophil percentageOrdered B y: Torey Huffman on 10-14-2022 Basophils/100 WBC (Bld) 0.3 % 0-1 [facility] Chloride [Moles/Vol] 103 mmol/L 98-107 [facility] Eosinophils/100 WBC (Bld) 3.8 % 0-5 [facility] Glucose [Mass/Vol] 87 mg/dL 74-106 [facility] Neutrophils (Bld) [#/Vol] 3.5 10*3/uL 2.0-7.7 [facility] Neutrophils/100 WBC (Bld) 54.4 % 47-70 [facility] Potassium [Moles/Vol] 3.5 mmol/L 3.5-5.1 [facility] Sodium [Moles/Vol] 137 mmol/L 136-145 [facility] WBC (Bld) [#/Vol] 6.4 10*3/uL 4.4-11.0 [facility] Blood erythrocytes count (nu mber/volume)Ordered By: Torey Huffman on 10-14-2022 RBC (Bld) [#/Vol] 4.11 10*6/uL 4.6-6.2 [facility] Blood hemoglobin measurement (mass/volume)Ordered By: Torey Huffman on 10-14-2022 Hemoglobin (Bld) [Mass/Vol] 11.2 g/dL 13.0-16.5 [facility] Blood lymphocytes/100 leukoc ytesOrdered By: Torey Huffman on 10-14-2022 Lymphocytes/100 WBC (Bld) 32.9 % 19-41 [facility] Blood monocytes/100 leukocyt esOrdered By: Torey Huffman on 10-14-2022 Monocytes/100 WBC (Bld) 8.3 % 0-10 [facility] Blood platelet mean volumeOr dered By: Torey Huffman on 10-14-2022 Platelet mean volume (Bld) [Entitic vol] 10.3 fL 6.2-12.0 [facility] Determination of erythrocyte mean corpuscular volume (MCV)Ordered By: Torey Huffman on 10-14-2022 MCV (RBC) [Entitic vol] 83.2 fL 80-94 [facility] Hematocrit Auto (Bld) [Volum e fraction]Ordered By: Torey Huffman on 10-14-2022 Hematocrit (Bld) [Volume fraction] 34.2 % 40-54 [facility] Laboratory - Chemistry and C hemistry - challengeOrdered By: Torey Huffman on 10-14-2022 CO2 [Moles/Vol] 28.0 mmol/L 21.0-32.0 [facility] Urea nitrogen/Creatinine [Mass ratio] 48.4 mg/mg 10-20 [facility] Laboratory - Hematology and Cell countsOrdered By: Torey Huffman on 10-14-2022 Erythrocyte distribution width (RBC) [Entitic vol] 41.8 fL 35.1-43.9 [facility] Erythrocyte distribution width (RBC) [Ratio] 13.7 % 11.6-14.6 [facility] Immature granulocytes/100 WBC (Bld) 0.300 % 0.0-0.9 [facility] Comment on above: IG% - Immature Granu locytes (promyelocytes, myelocytes and metamyelocytes) > 1% indicates that a LEFT SHIFT is Present. MCH (RBC) [Entitic mass] 27.3 pg 27.0-32.0 [facility] Nucleated RBC/100 WBC (Bld) [Ratio] 0 % 0-5 [facility] MCHC Auto (RBC) [Mass/Vol]Or dered By: Torey Huffman on 10-14-2022 MCHC (RBC) [Mass/Vol] 32.7 g/dL 32-36 [facility] No Panel InformationOrdered By: Torey Huffman on 10-14-2022 Estimated GFR (MDRD) Amer 444 mL/min >60 [facility] Comment on above: GFR Calc Estimated GFR (MDRD) Non-Af Amer 367 mL/min >60 [facility] Comment on above: Non- GFR Calc Platelets bldOrdered By: Mellissa Huffman on 10-14-2022 Platelets (Bld) [#/Vol] 211 10*3/uL 150-450 [facility] Serum or plasma calcium jacinta urement (mass/volume)Ordered By: Torey Huffman on 10-14-2022 Calcium [Mass/Vol] 8.6 mg/dL 8.5-10.1 [facility] Serum or plasma creatinine m easurement (mass/volume)Ordered By: Torey Huffman on 10-14-2022 Creatinine [Mass/Vol] 0.29 mg/dL 0.70-1.30 [facility] Comment on above: The validity of the calculated GFR & GFRAA in patients over 70 years has not been determined. Clinical correlation is essential. Serum or plasma urea nitroge n measurement (mass/volume)Ordered By: Torey Huffman on 10-14-2022 Urea nitrogen [Mass/Vol] 14 mg/dL 7-18 [facility] Thin prep Papanicolaou smear with manual screeningOrdered By: Torey Huffman on 10-14-2022 Thin prep Papanicolaou smear with manual screening 6 5-15 [facility] Absolute lymphocyte countOrd ered By: Chente Conn on 09-14-2022 Lymphocytes Auto (Unsp spec) [#/Vol] 1.95 10*3/uL 0.83-4.51 [facility] Basophil percentageOrdered B y: Chente Conn on 09-14-2022 Basophil percentage 21.5 ug/mL 10.0-40.0 [facility] Basophils/100 WBC (Bld) 0.3 % 0-1 [facility] Chloride [Moles/Vol] 104 mmol/L 98-107 [facility] Eosinophils/100 WBC (Bld) 3.7 % 0-5 [facility] Glucose [Mass/Vol] 91 mg/dL 74-106 [facility] Neutrophils (Bld) [#/Vol] 3.3 10*3/uL 2.0-7.7 [facility] Neutrophils/100 WBC (Bld) 54.7 % 47-70 [facility] Potassium [Moles/Vol] 4.0 mmol/L 3.5-5.1 [facility] Sodium [Moles/Vol] 138 mmol/L 136-145 [facility] WBC (Bld) [#/Vol] 6.0 10*3/uL 4.4-11.0 [facility] Blood erythrocytes count (nu mber/volume)Ordered By: Chente Conn on 09-14-2022 RBC (Bld) [#/Vol] 3.87 10*6/uL 4.6-6.2 [facility] Blood hemoglobin measurement (mass/volume)Ordered By: Chente Conn on 09-14-2022 Hemoglobin (Bld) [Mass/Vol] 10.5 g/dL 13.0-16.5 [facility] Blood lymphocytes/100 leukoc ytesOrdered By: Chente Conn on 09-14-2022 Lymphocytes/100 WBC (Bld) 32.4 % 19-41 [facility] Blood monocytes/100 leukocyt esOrdered By: Chente Conn on 09-14-2022 Monocytes/100 WBC (Bld) 8.7 % 0-10 [facility] Blood platelet mean volumeOr dered By: Chente Conn on 09-14-2022 Platelet mean volume (Bld) [Entitic vol] 10.2 fL 6.2-12.0 [facility] Determination of erythrocyte mean corpuscular volume (MCV)Ordered By: Chente Conn on 09-14-2022 MCV (RBC) [Entitic vol] 86.8 fL 80-94 [facility] Hematocrit Auto (Bld) [Volum e fraction]Ordered By: Chente Conn on 09-14-2022 Hematocrit (Bld) [Volume fraction] 33.6 % 40-54 [facility] Laboratory - Chemistry and C hemistry - challengeOrdered By: Chente Conn on 09-14-2022 CO2 [Moles/Vol] 30.0 mmol/L 21.0-32.0 [facility] Urea nitrogen/Creatinine [Mass ratio] 65.6 mg/mg 10-20 [facility] Laboratory - Hematology and Cell countsOrdered By: Chente Conn on 09-14-2022 Erythrocyte distribution width (RBC) [Entitic vol] 44.9 fL 35.1-43.9 [facility] Erythrocyte distribution width (RBC) [Ratio] 14.1 % 11.6-14.6 [facility] Immature granulocytes/100 WBC (Bld) 0.200 % 0.0-0.9 [facility] Comment on above: IG% - Immature Granu locytes (promyelocytes, myelocytes and metamyelocytes) > 1% indicates that a LEFT SHIFT is Present. MCH (RBC) [Entitic mass] 27.1 pg 27.0-32.0 [facility] Nucleated RBC/100 WBC (Bld) [Ratio] 0 % 0-5 [facility] MCHC Auto (RBC) [Mass/Vol]Or dered By: Chente Conn on 09-14-2022 MCHC (RBC) [Mass/Vol] 31.3 g/dL 32-36 [facility] No Panel InformationOrdered By: Chente Conn on 09-14-2022 Estimated GFR (MDRD) Amer 540 mL/min >60 [facility] Comment on above: GFR Calc Estimated GFR (MDRD) Non-Af Amer 447 mL/min >60 [facility] Comment on above: Non- GFR Calc Platelets bldOrdered By: Darwin Conn on 09-14-2022 Platelets (Bld) [#/Vol] 197 10*3/uL 150-450 [facility] Serum or plasma calcium jacinta urement (mass/volume)Ordered By: Chente Conn on 09-14-2022 Calcium [Mass/Vol] 8.2 mg/dL 8.5-10.1 [facility] Serum or plasma creatinine m easurement (mass/volume)Ordered By: Chente Conn on 09-14-2022 Creatinine [Mass/Vol] 0.24 mg/dL 0.70-1.30 [facility] Comment on above: The validity of the calculated GFR & GFRAA in patients over 70 years has not been determined. Clinical correlation is essential. Serum or plasma urea nitroge n measurement (mass/volume)Ordered By: Chente Conn on 09-14-2022 Urea nitrogen [Mass/Vol] 16 mg/dL 7-18 [facility] Thin prep Papanicolaou smear with manual screeningOrdered By: Chente Conn on 09-14-2022 Thin prep Papanicolaou smear with manual screening 4 5-15 [facility] Absolute lymphocyte countOrd ered By: Torey Huffman on 08-17-2022 Lymphocytes Auto (Unsp spec) [#/Vol] 2.34 10*3/uL 0.83-4.51 [facility] Basophil percentageOrdered B y: Torey Huffman on 08-17-2022 Basophils/100 WBC (Bld) 0.3 % 0-1 [facility] Chloride [Moles/Vol] 103 mmol/L 98-107 [facility] Eosinophils/100 WBC (Bld) 3.6 % 0-5 [facility] Glucose [Mass/Vol] 87 mg/dL 74-106 [facility] Neutrophils (Bld) [#/Vol] 2.9 10*3/uL 2.0-7.7 [facility] Neutrophils/100 WBC (Bld) 47.8 % 47-70 [facility] Potassium [Moles/Vol] 3.9 mmol/L 3.5-5.1 [facility] Sodium [Moles/Vol] 137 mmol/L 136-145 [facility] WBC (Bld) [#/Vol] 6.1 10*3/uL 4.4-11.0 [facility] Blood erythrocytes count (nu mber/volume)Ordered By: Torey Huffman on 08-17-2022 RBC (Bld) [#/Vol] 3.97 10*6/uL 4.6-6.2 [facility] Blood hemoglobin measurement (mass/volume)Ordered By: Torey Huffman on 08-17-2022 Hemoglobin (Bld) [Mass/Vol] 10.9 g/dL 13.0-16.5 [facility] Blood lymphocytes/100 leukoc ytesOrdered By: Torey Huffman on 08-17-2022 Lymphocytes/100 WBC (Bld) 38.1 % 19-41 [facility] Blood monocytes/100 leukocyt esOrdered By: Torey Huffman on 08-17-2022 Monocytes/100 WBC (Bld) 9.9 % 0-10 [facility] Blood platelet mean volumeOr dered By: Torey Huffman on 08-17-2022 Platelet mean volume (Bld) [Entitic vol] 10.0 fL 6.2-12.0 [facility] Determination of erythrocyte mean corpuscular volume (MCV)Ordered By: Torey Huffman on 08-17-2022 MCV (RBC) [Entitic vol] 86.1 fL 80-94 [facility] Hematocrit Auto (Bld) [Volum e fraction]Ordered By: Torey Huffman on 08-17-2022 Hematocrit (Bld) [Volume fraction] 34.2 % 40-54 [facility] Laboratory - Chemistry and C hemistry - challengeOrdered By: Torey Huffman on 08-17-2022 CO2 [Moles/Vol] 29.0 mmol/L 21.0-32.0 [facility] Urea nitrogen/Creatinine [Mass ratio] 51.6 mg/mg 10-20 [facility] Laboratory - Hematology and Cell countsOrdered By: Torey Huffman on 08-17-2022 Erythrocyte distribution width (RBC) [Entitic vol] 42.5 fL 35.1-43.9 [facility] Erythrocyte distribution width (RBC) [Ratio] 13.6 % 11.6-14.6 [facility] Immature granulocytes/100 WBC (Bld) 0.300 % 0.0-0.9 [facility] [facility] Comment on above: IG% - Immature Granu locytes (promyelocytes, myelocytes and metamyelocytes) > 1% indicates that a LEFT SHIFT is Present. MCH (RBC) [Entitic mass] 27.5 pg 27.0-32.0 [facility] Nucleated RBC/100 WBC (Bld) [Ratio] 0 % 0-5 [facility] MCHC Auto (RBC) [Mass/Vol]Or dered By: Torey Huffman on 08-17-2022 MCHC (RBC) [Mass/Vol] 31.9 g/dL 32-36 [facility] No Panel InformationOrdered By: Torey Huffman on 08-17-2022 Estimated GFR (MDRD) Amer 410 mL/min >60 [facility] Comment on above: GFR Calc Estimated GFR (MDRD) Non-Af Amer 339 mL/min >60 [facility] Comment on above: Non- GFR Calc Platelets bldOrdered By: Mellissa Huffman on 08-17-2022 Platelets (Bld) [#/Vol] 194 10*3/uL 150-450 [facility] Serum or plasma calcium jacinta urement (mass/volume)Ordered By: Torey Huffman on 08-17-2022 Calcium [Mass/Vol] 8.7 mg/dL 8.5-10.1 [facility] Serum or plasma creatinine m easurement (mass/volume)Ordered By: Torey Huffman on 08-17-2022 Creatinine [Mass/Vol] 0.31 mg/dL 0.70-1.30 [facility] Comment on above: The validity of the calculated GFR & GFRAA in patients over 70 years has not been determined. Clinical correlation is essential. Serum or plasma urea nitroge n measurement (mass/volume)Ordered By: Torey Huffman on 08-17-2022 Urea nitrogen [Mass/Vol] 16 mg/dL 7-18 [facility] Thin prep Papanicolaou smear with manual screeningOrdered By: Torey Huffman on 08-17-2022 Thin prep Papanicolaou smear with manual screening 5 5-15 [facility] Absolute lymphocyte countOrd ered By: Torey Huffman on 07-22-2022 Lymphocytes Auto (Unsp spec) [#/Vol] 2.12 10*3/uL 0.83-4.51 [facility] Basophil percentageOrdered B y: Torey Huffman on 07-22-2022 Basophils/100 WBC (Bld) 0.3 % 0-1 [facility] Eosinophils/100 WBC (Bld) 4.9 % 0-5 [facility] Neutrophils (Bld) [#/Vol] 2.9 10*3/uL 2.0-7.7 [facility] Neutrophils/100 WBC (Bld) 49.2 % 47-70 [facility] WBC (Bld) [#/Vol] 5.9 10*3/uL 4.4-11.0 [facility] Basophil percentageOrdered B y: Chente Conn on 07-22-2022 Chloride [Moles/Vol] 102 mmol/L 98-107 [facility] Glucose [Mass/Vol] 80 mg/dL 74-106 [facility] Potassium [Moles/Vol] 3.9 mmol/L 3.5-5.1 [facility] Sodium [Moles/Vol] 139 mmol/L 136-145 [facility] Blood erythrocytes count (nu mber/volume)Ordered By: Torey Huffman on 07-22-2022 RBC (Bld) [#/Vol] 3.96 10*6/uL 4.6-6.2 [facility] Blood hemoglobin measurement (mass/volume)Ordered By: Torey Huffman on 07-22-2022 Hemoglobin (Bld) [Mass/Vol] 11.1 g/dL 13.0-16.5 [facility] Blood lymphocytes/100 leukoc ytesOrdered By: Torey Huffman on 07-22-2022 Lymphocytes/100 WBC (Bld) 35.9 % 19-41 [facility] Blood monocytes/100 leukocyt esOrdered By: Torey Huffman on 07-22-2022 Monocytes/100 WBC (Bld) 9.5 % 0-10 [facility] Blood platelet mean volumeOr dered By: Torey Huffman on 07-22-2022 Platelet mean volume (Bld) [Entitic vol] 9.9 fL 6.2-12.0 [facility] Determination of erythrocyte mean corpuscular volume (MCV)Ordered By: Torey Huffman on 07-22-2022 MCV (RBC) [Entitic vol] 84.8 fL 80-94 [facility] Hematocrit Auto (Bld) [Volum e fraction]Ordered By: Torey Huffman on 07-22-2022 Hematocrit (Bld) [Volume fraction] 33.6 % 40-54 [facility] Laboratory - Chemistry and C hemistry - challengeOrdered By: Chente Conn on 07-22-2022 CO2 [Moles/Vol] 30.0 mmol/L 21.0-32.0 [facility] Urea nitrogen/Creatinine [Mass ratio] 36.2 mg/mg 10-20 [facility] Laboratory - Hematology and Cell countsOrdered By: Torey Huffman on 07-22-2022 Erythrocyte distribution width (RBC) [Entitic vol] 42.1 fL 35.1-43.9 [facility] Erythrocyte distribution width (RBC) [Ratio] 13.5 % 11.6-14.6 [facility] Immature granulocytes/100 WBC (Bld) 0.200 % 0.0-0.9 [facility] Comment on above: IG% - Immature Granu locytes (promyelocytes, myelocytes and metamyelocytes) > 1% indicates that a LEFT SHIFT is Present. MCH (RBC) [Entitic mass] 28.0 pg 27.0-32.0 [facility] Nucleated RBC/100 WBC (Bld) [Ratio] 0 % 0-5 [facility] MCHC Auto (RBC) [Mass/Vol]Or dered By: Torey Huffman on 07-22-2022 MCHC (RBC) [Mass/Vol] 33.0 g/dL 32-36 [facility] No Panel InformationOrdered By: Chente Conn on 07-22-2022 Estimated GFR (MDRD) Amer 346 mL/min >60 [facility] Comment on above: GFR Calc Estimated GFR (MDRD) Non-Af Amer 286 mL/min >60 [facility] Comment on above: Non- GFR Calc Platelets bldOrdered By: Mellissa Huffman on 07-22-2022 Platelets (Bld) [#/Vol] 171 10*3/uL 150-450 [facility] Serum or plasma calcium jacinta urement (mass/volume)Ordered By: Chente Conn on 07-22-2022 Calcium [Mass/Vol] 8.6 mg/dL 8.5-10.1 [facility] Serum or plasma creatinine m easurement (mass/volume)Ordered By: Chente Conn on 07-22-2022 Creatinine [Mass/Vol] 0.36 mg/dL 0.70-1.30 [facility] Comment on above: The validity of the calculated GFR & GFRAA in patients over 70 years has not been determined. Clinical correlation is essential. Serum or plasma urea nitroge n measurement (mass/volume)Ordered By: Chente Conn on 07-22-2022 Urea nitrogen [Mass/Vol] 13 mg/dL 7-18 [facility] Thin prep Papanicolaou smear with manual screeningOrdered By: Chente Conn on 07-22-2022 Thin prep Papanicolaou smear with manual screening 7 5-15 [facility] CNPNon 06-30-2022 [facility] Telephone ([facility]) -------- KRISS MICHAEL ([id number]) 1980 M Date Time Provider Department 06/30/22 STOMA THERAPY [facility] During your visit today, we recorded the following information about you: Amber Monreal RN 06/30/2022 3:53 PM Signed [phone] Pt's mother called. She would like to discuss pt's stoma prolapse. Chichi Fowler RN 06/30/2022 4:48 PM Signed [facility] nursing returned patient's mother Yue message regarding patient has baseline liquid effluent and needing number gravity drainage number. Mother also stated patient had a large passing of stool and it got on his stoma and she thinks having some irritation on mucosa. Left Message: No Information/Recomm endations provided regarding giving order numbers for the gravity drainage bag via e-mail. Mother will give order numbers to [facility]. Also recommended can apply stomahesive powder on mucosa. Advised maybe irritation from mucosa rubbing on pouch d/t prolapse vs the stool. Mom agreeable. Time spent: 30 minutes Chichi Fowler RN, BSN, CWOCN Allergies As of Date: 06/30/2022 Noted Allergy Reaction CODEINE 06/22/2005 14 - Other: See Comments Comments: hyperactivity per mom FLAGYL (METRONIDAZOLE HCL) 05/08/2014 2 - Rash MORPHINE 06/22/2005 14 - Other: See Comments Comments: causes hyperactivity per mom PROPULSID 02/08/2012 2 - Rash Date Reviewed: 12/27/2019 Reviewed by: Caryn CollinsRn) RE Reyes - Fully Assessed Reason for Visit: Stoma Consult [378] Prescriptions as of 06/30/2022 - baclofen (LIORESAL) 10 mg/ml liqd 2 mL by PEG route four times daily. - GABAPENTIN 300 MG/6 ML ORAL LIQUID UD CUP 100 mg at bedtime, 150 mg twice during the day - magnesium hydroxide (MILK OF MAGNESIA ORAL) Take by mouth as needed. - ferrous sulfate (IRON ORAL) Take by mouth once daily. - ascorbic acid (VITAMIN C ORAL) Take by mouth once daily. - cholecalciferol, vitamin D3, (VITAMIN D3 ORAL) Take by mouth once daily. - doxazosin (CARDURA) 2 mg tablet Take 2 mg by mouth daily at bedtime. - gabapentin (NEURONTIN) 300 mg/6 mL (6 mL) oral solution Take 6ml four times daily for a week, then 4ml four times daily. Consider decreasing to 2mg four times daily. - enoxaparin (LOVENOX) 80 mg/0.8 mL Inject 0.7 mL subcutaneously q 12 HR. - lactulose (DUPHALAC, CONSTULOSE) 10 g/15 mL soln Take 20 g by mouth twice daily. - potassium chloride 20 mEq/15 mL solution 15 mEq by PEG/JET route once daily. - phenobarbital/0.9 % sod chlor (PHENOBARBITAL IN 0.9 % SOD CHL) 10 mg/mL (1 mL) soln Inject intravenously. - PHENobarbital 10 mg/mL liqd oral liquid (SF) 60 mg twice daily. - simethicone (GENASYME, MYLICON) 40 mg/0.6 mL drops Add 120 mg to J-Tube four times daily as needed. - COMPOUNDED PRESCRIPTION Jevity 1.0 at 60 ml/hr x 24 hrs with 100 ml water flush 6 times per day [continuous feeding] - pantoprazole (PROTONIX) 2 mg/mL liqd 10 mL by ORAL/FEEDING TUBE route twice daily before meals (0600/1600). - polyethylene glycol 3350 (MIRALAX, GLYCOLAX) 17 gram packet 1 Packet by PEG route once daily. - sennosides (SENNA) 8.8 mg/5 mL syrup Take 5 mL by mouth twice daily as needed. - albuterol (PROVENTIL) 2.5 mg /3 mL (0.083 %) nebulizer solution Use 3 mL via nebulizer every 4 hours as needed for Wheezing/Shortness of Breath. - furosemide (LASIX) 10 mg/mL solution 2 mL by ORAL/FEEDING TUBE route once daily. - cetirizine (ZYRTEC) 10 mg tablet Take 1 tablet by mouth once daily. 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] 07/27/2005 Septic shock [A41.9, R65.21] 04/03/2011 03/09/2012 Acute respiratory failure (HCC) [J96.00] 04/03/2011 03/09/2012 SUMMARY [V999.95] 04/03/2011 04/11/2011 Transaminitis [R74.01] 04/06/2011 03/09/2012 Pancreatitis [K85.90] 04/07/2011 03/09/2012 Dilatation of colon [K59.39] 04/07/2011 03/09/2012 Upper GI bleed [K92.2] 04/11/2011 03/09/2012 Renal failure, acute (HCC) [N17.9] 04/13/2011 03/09/2012 Aspiration of gastric contents [T17.910A] 04/13/2011 03/09/2012 Hypernatremia [E87.0] 04/26/2011 03/09/2012 Congenital quadriplegia (HCC) [G80.8] 06/16/2011 Hypoxia [R09.02] 03/10/2012 03/11/2012 Spastic quadriparesis, 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 difficile colitis [A04.72] 12/13/2012 06/29/2018 SUMMARY [V999.95] 12/13/2012 Transaminitis [R74.01] 12/17/2012 Sepsis (HCC) [A41.9] 12/17/2012 Hyperthermia [R50.9] 01/13/2013 (more content not included)... Normal [facility] Absolute lymphocyte countOrd ered By: Dr. De La Rosa on 06-22-2022 Lymphocytes Auto (Unsp spec) [#/Vol] 1.42 10*3/uL 0.83-4.51 [facility] Basophil percentageOrdered B y: Dr. De La Rosa on 06-22-2022 Basophil percentage 0-5 SEEN /hpf 0-5 [facility] Basophil percentage 82 mg/dL 74-106 [facility] Basophil percentage 7.2 g/dL 6.4-8.2 [facility] Basophil percentage 0.10 mg/dL 0.20-1.00 [facility] Basophil percentage 139 mmol/L 136-145 [facility] Basophil percentage 3.5 mmol/L 3.5-5.1 [facility] Basophil percentage 107 mmol/L 98-107 [facility] Basophil percentage 1.3 mmol/L 0.4-2.0 [facility] Basophils (Bld) [#/Vol] 6.6 10*3/uL 4.4-11.0 [facility] Basophils (Bld) [#/Vol] 4.5 10*3/uL 2.0-7.7 [facility] Basophils/100 WBC (Bld) 67.2 % 47-70 [facility] Basophils/100 WBC (Bld) 2.4 % 0-5 [facility] Basophils/100 WBC (Bld) 0.2 % 0-1 [facility] Basophil percentageOrdered B y: Siddharth De La Rosa on 06-22-2022 Bilirubin [Mass/Vol] 0.10 mg/dL 0.20-1.[address] [facility] Comment on above: For patients on eltr ombopag therapy, use of Dimension [place] TBIL is not recommended. Chloride [Moles/Vol] 107 mmol/L 98-107 [facility] Eosinophils/100 WBC (Bld) 2.4 % 0-5 [facility] Glucose [Mass/Vol] 82 mg/dL 74-106 [facility] Lactate [Moles/Vol] 1.3 mmol/L 0.4-2.0 [facility] Neutrophils (Bld) [#/Vol] 4.5 10*3/uL 2.0-7.7 [facility] Neutrophils/100 WBC (Bld) 67.2 % 47-70 [facility] Potassium [Moles/Vol] 3.5 mmol/L 3.5-5.1 [facility] Protein [Mass/Vol] 7.2 g/dL 6.4-8.2 [facility] Sodium [Moles/Vol] 139 mmol/L 136-145 [facility] WBC (Bld) [#/Vol] 6.6 10*3/uL 4.4-11.0 [facility] Bilirubin Test strip Ql (U)O rdered By: Dr. De La Rosa on 06-22-2022 Bilirubin Ql (U) Negative Negative [facility] Blood erythrocytes count (nu mber/volume)Ordered By: Dr. De La Rosa on 06-22-2022 RBC (Bld) [#/Vol] 4.21 10*6/uL 4.6-6.2 [facility] Blood hemoglobin measurement (mass/volume)Ordered By: Dr. De La Rosa on 06-22-2022 Hemoglobin (Bld) [Mass/Vol] 11.5 g/dL 13.0-16.5 [facility] Blood lymphocytes/100 leukoc ytesOrdered By: Dr. De La Rosa on 06-22-2022 Lymphocytes/100 WBC (Bld) 21.5 % 19-41 [facility] Blood monocytes/100 leukocyt esOrdered By: Dr. De La Rosa on 06-22-2022 Monocytes/100 WBC (Bld) 8.5 % 0-10 [facility] Blood platelet mean volumeOr dered By: Dr. De La Rosa on 06-22-2022 Platelet mean volume (Bld) [Entitic vol] 10.0 fL 6.2-12.0 [facility] Culture, urineOrdered By: Daina De La Rosa on 06-22-2022 Bacteria identified Cx Nom (U) Culture exhibits no growth. [facility] Determination of erythrocyte mean corpuscular volume (MCV)Ordered By: Dr. De La Rosa on 06-22-2022 MCV (RBC) [Entitic vol] 86.7 fL 80-94 [facility] Hematocrit Auto (Bld) [Volum e fraction]Ordered By: Dr. De La Rosa on 06-22-2022 Hematocrit (Bld) [Volume fraction] 36.5 % 40-54 [facility] INR in Blood by Coagulation assayOrdered By: Dr. De La Rosa on 06-22-2022 INR Coag (Bld) [Relative time] 1.0 {INR} [facility] Ketones Test strip Ql (U)Ord ered By: Dr. De La Rosa on 06-22-2022 Ketones Ql (U) 5 mg/dl Negative [facility] Laboratory - Chemistry and C hemistry - challengeOrdered By: Siddharth De La Rosa on 06-22-2022 ALP [Catalytic activity/Vol] 135 U/L 45-117 [facility] ALT [Catalytic activity/Vol] 19 U/L 16-61 [facility] CO2 [Moles/Vol] 25.0 mmol/L 21.0-32.0 [facility] Globulin (S) [Mass/Vol] 4.3 g/dL 2.2-4.2 [facility] Urea nitrogen/Creatinine [Mass ratio] 48.6 mg/mg 10-20 [facility] Laboratory - CoagulationOrde red By: Siddharth De La Rosa on 06-22-2022 aPTT Coag (Bld) [Time] 31.6 s 24.1-36.2 [facility] PT Coag (PPP) [Time] 13.0 s 11.7-14.9 [facility] Laboratory - Hematology and Cell countsOrdered By: Siddharth De La Rosa on 06-22-2022 Erythrocyte distribution width (RBC) [Entitic vol] 45.2 fL 35.1-43.9 [facility] Erythrocyte distribution width (RBC) [Ratio] 14.3 % 11.6-14.6 [facility] Immature granulocytes/100 WBC (Bld) 0.200 % 0.0-0.9 [facility] Comment on above: IG% - Immature Granu locytes (promyelocytes, myelocytes and metamyelocytes) > 1% indicates that a LEFT SHIFT is Present. MCH (RBC) [Entitic mass] 27.3 pg 27.0-32.0 [facility] Nucleated RBC/100 WBC (Bld) [Ratio] 0 % 0-5 [facility] Laboratory - Microbiology an d Antimicrobial susceptibilityOrdered By: Siddharth De La Rosa on 06-22-2022 Bacteria identified Cx Nom (Bld) No growth in 5 days. [facility] MCHC Auto (RBC) [Mass/Vol]Or dered By: Dr. De La Rosa on 06-22-2022 MCHC (RBC) [Mass/Vol] 31.5 g/dL 32-36 [facility] Mucus LM Ql (Urine sed)Order ed By: Dr. De La Rosa on 06-22-2022 Mucus Ql (Urine sed) 0 SEEN /hpf [facility] Nitrite Test strip Ql (U)Ord ered By: Dr. De La Rosa on 06-22-2022 Nitrite Ql (U) Negative Negative [facility] No Panel InformationOrdered By: Siddharth De La Rosa on 06-22-2022 Estimated Creatinine Clearance Calc 366.58 ml/min [facility] Estimated GFR (MDRD) Amer 383 mL/min >60 [facility] Comment on above: GFR Calc Estimated GFR (MDRD) Non-Af Amer 317 mL/min >60 [facility] Comment on above: Non- GFR Calc No Panel InformationOrdered By: Dr. De La Rosa on 06-22-2022 27.3 pg 27.0-32.0 [facility] 14.3 % 11.6-14.6 [facility] 45.2 fl 35.1-43.9 [facility] 0.200 % 0.0-0.9 [facility] 0 % 0-5 [facility] 13.0 SECONDS 11.7-14.9 [facility] 31.6 Seconds 24.1-36.2 [facility] 317 mL/min >60 [facility] 383 mL/min >60 [facility] 366.58 ml/min [facility] 48.6 RATIO 10-20 [facility] 4.3 g/dL 2.2-4.2 [facility] 135 U/L 45-117 [facility] 19 U/L 16-61 [facility] 25.0 mmol/L 21.0-32.0 [facility] Platelets bldOrdered By: Dr. De La Rosa on 06-22-2022 Platelets (Bld) [#/Vol] 202 10*3/uL 150-450 [facility] Protein Test strip Ql (U)Ord ered By: Dr. De La Rosa on 06-22-2022 Protein Ql (U) 30 mg/dl Negative [facility] Serum or plasma albumin jacinta urement (mass/volume)Ordered By: Dr. De La Rosa on 06-22-2022 Albumin [Mass/Vol] 2.9 g/dL 3.2-5.0 [facility] Serum or plasma albumin/glob ulin mass ratioOrdered By: Dr. De La Rosa on 06-22-2022 Albumin/Globulin [Mass ratio] 0.7 {ratio} 0.9-2.4 [facility] Serum or plasma calcium jacinta urement (mass/volume)Ordered By: Dr. De La Rosa on 06-22-2022 Calcium [Mass/Vol] 7.6 mg/dL 8.5-10.1 [facility] Serum or plasma creatinine m easurement (mass/volume)Ordered By: Dr. De aL Rosa on 06-22-2022 Creatinine [Mass/Vol] 0.33 mg/dL 0.70-1.30 [facility] Comment on above: The validity of the calculated GFR & GFRAA in patients over 70 years has not been determined. Clinical correlation is essential. Serum or plasma urea nitroge n measurement (mass/volume)Ordered By: Dr. De La Rosa on 06-22-2022 Urea nitrogen [Mass/Vol] 16 mg/dL 7-18 [facility] Squamous epithelial cells de tection in urine sediment by light microscopyOrdered By: Dr. De La Rosa on 06-22-2022 Epithelial cells.squamous LM Ql (Urine sed) 0-5 SEEN /hpf 0-5 [facility] Thin prep Papanicolaou smear with manual screeningOrdered By: Dr. De La Rosa on 05-01-2023 Thin prep Papanicolaou smear with manual screening 16 U/L 15-37 [facility] Thin prep Papanicolaou smear with manual screening 7 5-15 [facility] Urine blood detectionOrdered By: Dr. De La Rosa on 06-22-2022 RBC Ql (U) Negative Negative [facility] RBC Ql (U) 0 SEEN /hpf 0-5 [facility] Urine clarityOrdered By: Dr. De La Rosa on 06-22-2022 Clarity (U) Sl Cldy Clear [facility] Urine color determinationOrd ered By: Dr. De La Rosa on 06-22-2022 Color (U) Yellow Yellow [facility] Urine glucose detectionOrder ed By: Dr. De La Rosa on 06-22-2022 Glucose Ql (U) Normal mg/dl Normal [facility] Urine leukocyte esterase det ection by dipstickOrdered By: Dr. De La Rosa on 06-22-2022 Leukocyte esterase Test strip Ql (U) 25 /ul Negative [facility] Urine pHOrdered By: Dr. Lianne vieira on 06-22-2022 pH (U) 8.0 [pH] 5.0 - 8.0 [facility] Urine sediment bacteria coun t by microscopy (number/high power field)Ordered By: Dr. De La Rosa on 06-22-2022 Bacteria LM.HPF (Urine sed) [#/Area] 0 /[HPF] None Seen [facility] Urine specific gravity measu rementOrdered By: Dr. De La Rosa on 06-22-2022 Specific gravity (U) [Rel density] 1.010 1.002-1.030 [facility] Urobilinogen Auto test strip Ql (U)Ordered By: Dr. De La Rosa on 06-22-2022 Urobilinogen Ql (U) Normal mg/dl Normal [facility] CNNURSEon 06-15-2022 CNNURSE Nurse Visit (JAYNA) -------- KRISS MICHAEL ([id number]) 1980 Date Time Provider Department 06/15/22 2:00 PM [facility] During your visit today, we recorded the following information about you: Cassie Cui RN 06/15/2022 3:50 PM Addendum The [address] [address] Patient: Kriss Michael Patient Address: [address] [place] [address] Dr Araujo [id number] Preferred Gender: male Date of : 1980 Type of Stoma: End Descending Colostomy Diagnosis: Constipation K59.0 OSTOMY SUPPLY ORDER FORM Coloplast SenSura [place] MAXI Drainable Pouch with Soft Outlet Transparent Cut-to-fit 4 #[id number] 30 day use - 1 Box Coloplast Bed Drainage Bag #[id number] 30 day use-2 bags Recovery Auditor #[id number] 30 day use 1 Psychology Intern Tonia Hollihesive #[id number] 30 day use - 2 Boxes Procare Abdominal binder (62-74) #[id number] 30 day use - 2 Binders OR Procare Abdominal binder (45-62) #[id number] 30 day use - 2 Binders Refills: 11 Attending Physician: Dr. Leavitt For immediate authorization, please contact the physician?s office. [facility] Nurse: VALERIANO Peters, CWOCN Addendum by: VALERIANO Virgen, CWOCN SIGNATURE: Cassie Cui RN PATIENT NAME: Kriss Michael DATE: June 15, 2022 TIME: 3:34 PM CONTACT #: [phone] Cassie Cui RN 06/15/2022 6:05 PM Signed ET/WOCN Nursing Consult Topic: ET/WOCN Consultation Note [...] Requested samples from [employer] for [employer] SenSura [place] MAXI Drainable pouch with soft outlet #18739. Order form provided. Also discussed use of [...] effluent Current pouching system: Jazzmine Cohesive StomaWrap, Pep New Image flat flange with tape collar (cutting surface up to 3 1/2), high volume output pouch Current wearing time: 1 day Recommendations: Skin Care: Apply ConvaTec Stomahesive powder to irritated or denuded skin, brush away excess. 3M No sting skin barrier film. Pouching System: After reducing prolapse, applied Pep Hollihesive long wedges to peristomal skin, [employer] post-op pouch with window, Stomahesive paste, Mefix tape to frame Wear Time: 3-4 days goal Time Increment: 1 hour 15 minutes Cassie BAL, RN, CWOCN Allergies As of Date: 06/15/2022 Noted Allergy Reaction CODEINE 06/22/2005 14 - Other: See Comments Comments: hyperactivity per mom FLAGYL (METRONIDAZOLE HCL) 05/08/2014 2 - Rash MORPHINE 06/22/2005 14 - Other: See Comments Comments: causes hyperactivity per mom PROPULSID 02/08/2012 2 - Rash Date Reviewed: 12/27/2019 Reviewed by: Caryn (Rn) RE Reyes - Fully Assessed Primary Visit Diagnosis:Attentio n to colostomy (HCC) [Z43.3] Prescriptions as of 06/30/2022 - baclofen (LIORESAL) 10 mg/ml liqd 2 mL by PEG route four times daily. - GABAPENTIN 300 MG/6 ML ORAL LIQUID UD CUP 100 mg at bedtime, 150 mg twice during the day - magnesium hydroxide (MILK OF MAGNESIA ORAL) Take by mouth as needed. - ferrous sulfate (IRON ORAL) Take by mouth once daily. - ascorbic acid (VITAMIN C ORAL) Take by mouth once daily. - cholecalciferol, vitamin D3, (VITAMIN D3 ORAL) Take by mouth once daily. - doxazosin (CARDURA) 2 mg tablet Take 2 mg by mouth daily at bedtime. - gabapentin (NEURONTIN) 300 mg/6 mL (6 mL) oral solution Take 6ml four times daily for a week, then 4ml four times daily. Consider decreasing to 2mg four times daily. - enoxaparin (LOVENOX) 80 mg/0.8 mL Inject 0.7 mL subcutaneously q 12 HR. - lactulose (DUPHALAC, CONSTULOSE) 10 g/15 mL soln Take 20 g by mouth twice daily. - potassium chloride 20 mEq/15 mL solution 15 mEq by PEG/JET route once daily. - phenobarbital/0.9 % sod chlor (PHENOBARBITAL IN 0.9 % SOD CHL) 10 mg/mL (1 mL) soln Inject intravenou (more content not included)... Normal [facility] Absolute lymphocyte countOrd ered By: Dr. Munoz on 06-12-2022 Lymphocytes Auto (Unsp spec) [#/Vol] 2.18 10*3/uL 0.83-4.51 [facility] Basophil percentageOrdered B y: Dr. Munoz on 06-12-2022 Basophil percentage 90 mg/dL 74-106 [facility] Basophil percentage 135 mmol/L 136-145 [facility] Basophil percentage 3.7 mmol/L 3.5-5.1 [facility] Basophil percentage 103 mmol/L 98-107 [facility] Basophils (Bld) [#/Vol] 6.1 10*3/uL 4.4-11.0 [facility] Basophils (Bld) [#/Vol] 3.1 10*3/uL 2.0-7.7 [facility] Basophils/100 WBC (Bld) 0.5 % 0-1 [facility] Basophils/100 WBC (Bld) 50.9 % 47-70 [facility] Basophils/100 WBC (Bld) 3.3 % 0-5 [facility] Chloride [Moles/Vol] 103 mmol/L 98-107 [facility] Eosinophils/100 WBC (Bld) 3.3 % 0-5 [facility] Glucose [Mass/Vol] 90 mg/dL 74-106 [facility] Neutrophils (Bld) [#/Vol] 3.1 10*3/uL 2.0-7.7 [facility] Neutrophils/100 WBC (Bld) 50.9 % 47-70 [facility] Potassium [Moles/Vol] 3.7 mmol/L 3.5-5.1 [facility] Sodium [Moles/Vol] 135 mmol/L 136-145 [facility] WBC (Bld) [#/Vol] 6.1 10*3/uL 4.4-11.0 [facility] Blood erythrocytes count (nu mber/volume)Ordered By: Dr. Munoz on 06-12-2022 RBC (Bld) [#/Vol] 4.08 10*6/uL 4.6-6.2 [facility] Blood hemoglobin measurement (mass/volume)Ordered By: Dr. Munoz on 06-12-2022 Hemoglobin (Bld) [Mass/Vol] 11.2 g/dL 13.0-16.5 [facility] Blood lymphocytes/100 leukoc ytesOrdered By: Dr. Munoz on 06-12-2022 Lymphocytes/100 WBC (Bld) 35.9 % 19-41 [facility] Blood monocytes/100 leukocyt esOrdered By: Dr. Munoz on 06-12-2022 Monocytes/100 WBC (Bld) 8.1 % 0-10 [facility] Blood platelet mean volumeOr dered By: Dr. Munoz on 06-12-2022 Platelet mean volume (Bld) [Entitic vol] 9.8 fL 6.2-12.0 [facility] Determination of erythrocyte mean corpuscular volume (MCV)Ordered By: Dr. Munoz on 06-12-2022 MCV (RBC) [Entitic vol] 85.0 fL 80-94 [facility] Hematocrit Auto (Bld) [Volum e fraction]Ordered By: Dr. Munoz on 06-12-2022 Hematocrit (Bld) [Volume fraction] 34.7 % 40-54 [facility] Influenza virus A and B and SARS-CoV-2 (COVID-19) Ag panel - Upper respiratory specimOrdered By: Naveen Munoz on 06-12-2022 SARS-CoV-2 (COVID-19) RNA YAYO+probe Ql (Resp) [facility] Influenza virus A and B and SARS-CoV-2 (COVID-19) Ag panel - Upper respiratory specimOrdered By: Dr. Munoz on 06-12-2022 SARS-CoV-2 (COVID-19) RNA YAYO+probe Ql (Resp) [facility] Laboratory - Chemistry and C hemistry - challengeOrdered By: Dr. Munoz on 06-12-2022 CO2 [Moles/Vol] 28.0 mmol/L 21.0-32.0 [facility] Urea nitrogen/Creatinine [Mass ratio] 38.9 mg/mg 10-20 [facility] Laboratory - Hematology and Cell countsOrdered By: Dr. Munoz on 06-12-2022 Erythrocyte distribution width (RBC) [Entitic vol] 45.3 fL 35.1-43.9 [facility] Erythrocyte distribution width (RBC) [Ratio] 14.5 % 11.6-14.6 [facility] Immature granulocytes/100 WBC (Bld) 1.300 % 0.0-0.9 [facility] Comment on above: IG% - Immature Granu locytes (promyelocytes, myelocytes and metamyelocytes) > 1% indicates that a LEFT SHIFT is Present. MCH (RBC) [Entitic mass] 27.5 pg 27.0-32.0 [facility] Nucleated RBC/100 WBC (Bld) [Ratio] 0 % 0-5 [facility] MCHC Auto (RBC) [Mass/Vol]Or dered By: Dr. Munoz on 06-12-2022 MCHC (RBC) [Mass/Vol] 32.3 g/dL 32-36 [facility] No Panel InformationOrdered By: Dr. Munoz on 06-12-2022 Estimated Creatinine Clearance Calc 381.94 ml/min [facility] Estimated GFR (MDRD) Amer 456 mL/min >60 [facility] Comment on above: GFR Calc Estimated GFR (MDRD) Non-Af Amer 377 mL/min >60 [facility] Comment on above: Non- GFR Calc Troponin I High Sensitivity < 3 pg/mL 3.0-78.0 [facility] Comment on above: Please Note: New Suha t Units and Gender Specific Reference Ranges. For more information see Policy Stat Procedure [place] High Sensitivity Troponin (TNIH) and attachments. 27.5 pg 27.0-32.0 [facility] 14.5 % 11.6-14.6 [facility] 45.3 fl 35.1-43.9 [facility] 1.300 % 0.0-0.9 [facility] 0 % 0-5 [facility] 377 mL/min >60 [facility] 456 mL/min >60 [facility] 381.94 ml/min [facility] 38.9 RATIO 10-20 [facility] < 3 pg/mL 3.0-78.0 [facility] 28.0 mmol/L 21.0-32.0 [facility] Platelets bldOrdered By: Dr. Munoz on 06-12-2022 Platelets (Bld) [#/Vol] 199 10*3/uL 150-450 [facility] Serum or plasma calcium jacinta urement (mass/volume)Ordered By: Dr. Munoz on 06-12-2022 Calcium [Mass/Vol] 8.8 mg/dL 8.5-10.1 [facility] Serum or plasma creatinine m easurement (mass/volume)Ordered By: Dr. Munoz on 06-12-2022 Creatinine [Mass/Vol] 0.28 mg/dL 0.70-1.30 [facility] Comment on above: The validity of the calculated GFR & GFRAA in patients over 70 years has not been determined. Clinical correlation is essential. Serum or plasma urea nitroge n measurement (mass/volume)Ordered By: Dr. Munoz on 06-12-2022 Urea nitrogen [Mass/Vol] 11 mg/dL 7-18 [facility] Thin prep Papanicolaou smear with manual screeningOrdered By: Dr. Munoz on 06-12-2022 Thin prep Papanicolaou smear with manual screening 4 5-15 [facility] Absolute lymphocyte countOrd ered By: Dr. Waite on 06-01-2022 Lymphocytes Auto (Unsp spec) [#/Vol] 2.20 10*3/uL 0.83-4.51 [facility] Basophil percentageOrdered B y: Dr. Waite on 06-01-2022 Basophil percentage 100 mg/dL 74-106 [facility] Basophil percentage 140 mmol/L 136-145 [facility] Basophil percentage 3.6 mmol/L 3.5-5.1 [facility] Basophil percentage 105 mmol/L 98-107 [facility] Basophils (Bld) [#/Vol] 5.2 10*3/uL 4.4-11.0 [facility] Basophils (Bld) [#/Vol] 2.2 10*3/uL 2.0-7.7 [facility] Basophils/100 WBC (Bld) 0.4 % 0-1 [facility] Basophils/100 WBC (Bld) 42.6 % 47-70 [facility] Basophils/100 WBC (Bld) 4.6 % 0-5 [facility] Chloride [Moles/Vol] 105 mmol/L 98-107 [facility] Eosinophils/100 WBC (Bld) 4.6 % 0-5 [facility] Glucose [Mass/Vol] 100 mg/dL 74-106 [facility] Comment on above: Fasting Glucose resu lt from 100 to 125 mg/dL suggests IMPAIRED HOMEOSTASIS per A.D.A. criteria. Neutrophils (Bld) [#/Vol] 2.2 10*3/uL 2.0-7.7 [facility] Neutrophils/100 WBC (Bld) 42.6 % 47-70 [facility] Potassium [Moles/Vol] 3.6 mmol/L 3.5-5.1 [facility] Sodium [Moles/Vol] 140 mmol/L 136-145 [facility] WBC (Bld) [#/Vol] 5.2 10*3/uL 4.4-11.0 [facility] Blood erythrocytes count (nu mber/volume)Ordered By: Dr. Waite on 06-01-2022 RBC (Bld) [#/Vol] 3.90 10*6/uL 4.6-6.2 [facility] Blood hemoglobin measurement (mass/volume)Ordered By: Dr. Waite on 06-01-2022 Hemoglobin (Bld) [Mass/Vol] 11.0 g/dL 13.0-16.5 [facility] Blood lymphocytes/100 leukoc ytesOrdered By: Dr. Waite on 06-01-2022 Lymphocytes/100 WBC (Bld) 42.5 % 19-41 [facility] Blood monocytes/100 leukocyt esOrdered By: Dr. Waite on 06-01-2022 Monocytes/100 WBC (Bld) 9.7 % 0-10 [facility] Blood platelet mean volumeOr dered By: Dr. Waite on 06-01-2022 Platelet mean volume (Bld) [Entitic vol] 10.1 fL 6.2-12.0 [facility] Determination of erythrocyte mean corpuscular volume (MCV)Ordered By: Dr. Waite on 06-01-2022 MCV (RBC) [Entitic vol] 86.4 fL 80-94 [facility] Hematocrit Auto (Bld) [Volum e fraction]Ordered By: Dr. Waite on 06-01-2022 Hematocrit (Bld) [Volume fraction] 33.7 % 40-54 [facility] Laboratory - Chemistry and C hemistry - challengeOrdered By: Dr. Waite on 06-01-2022 CO2 [Moles/Vol] 32.0 mmol/L 21.0-32.0 [facility] Urea nitrogen/Creatinine [Mass ratio] 46.0 mg/mg 10-20 [facility] Laboratory - Hematology and Cell countsOrdered By: Dr. Waite on 06-01-2022 Erythrocyte distribution width (RBC) [Entitic vol] 46.1 fL 35.1-43.9 [facility] Erythrocyte distribution width (RBC) [Ratio] 14.7 % 11.6-14.6 [facility] Immature granulocytes/100 WBC (Bld) 0.200 % 0.0-0.9 [facility] Comment on above: IG% - Immature Granu locytes (promyelocytes, myelocytes and metamyelocytes) > 1% indicates that a LEFT SHIFT is Present. MCH (RBC) [Entitic mass] 28.2 pg 27.0-32.0 [facility] Nucleated RBC/100 WBC (Bld) [Ratio] 0 % 0-5 [facility] Auto (RBC) [Mass/Vol]Or dered By: Dr. Waite on 06-01-2022 MCHC (RBC) [Mass/Vol] 32.6 g/dL 32-36 [facility] No Panel InformationOrdered By: Dr. Waite on 06-01-2022 Estimated GFR (MDRD) Amer 501 mL/min >60 [facility] Comment on above: GFR Calc Estimated GFR (MDRD) Non-Af Amer 414 mL/min >60 [facility] Comment on above: Non- GFR Calc 28.2 pg 27.0-32.0 [facility] 14.7 % 11.6-14.6 [facility] 46.1 fl 35.1-43.9 [facility] 0.200 % 0.0-0.9 [facility] 0 % 0-5 [facility] 414 mL/min >60 [facility] 501 mL/min >60 [facility] 46.0 RATIO 10-20 [facility] 32.0 mmol/L 21.0-32.0 [facility] Platelets bldOrdered By: Dr. Waite on 06-01-2022 Platelets (Bld) [#/Vol] 183 10*3/uL 150-450 [facility] Serum or plasma calcium jacinta urement (mass/volume)Ordered By: Dr. Waite on 06-01-2022 Calcium [Mass/Vol] 8.8 mg/dL 8.5-10.1 [facility] Serum or plasma creatinine m easurement (mass/volume)Ordered By: Dr. Waite on 06-01-2022 Creatinine [Mass/Vol] 0.26 mg/dL 0.70-1.30 [facility] Comment on above: The validity of the calculated GFR & GFRAA in patients over 70 years has not been determined. Clinical correlation is essential. Serum or plasma urea nitroge n measurement (mass/volume)Ordered By: Dr. Waite on 06-01-2022 Urea nitrogen [Mass/Vol] 12 mg/dL 7-18 [facility] Thin prep Papanicolaou smear with manual screeningOrdered By: Dr. Waite on 06-01-2022 Thin prep Papanicolaou smear with manual screening 3 5-15 [facility] Absolute lymphocyte countOrd ered By: Dr. Conn on 05-04-2022 Lymphocytes Auto (Unsp spec) [#/Vol] 1.95 10*3/uL 0.83-4.51 [facility] Basophil percentageOrdered B y: Dr. Conn on 05-04-2022 Basophil percentage 21.8 ug/mL 10.0-40.0 [facility] Basophil percentage 102 mg/dL 74-106 [facility] Basophil percentage 141 mmol/L 136-145 [facility] Basophil percentage 3.5 mmol/L 3.5-5.1 [facility] Basophil percentage 106 mmol/L 98-107 [facility] Basophils (Bld) [#/Vol] 5.5 10*3/uL 4.4-11.0 [facility] Basophils (Bld) [#/Vol] 2.8 10*3/uL 2.0-7.7 [facility] Basophils/100 WBC (Bld) 0.2 % 0-1 [facility] Basophils/100 WBC (Bld) 50.6 % 47-70 [facility] Basophils/100 WBC (Bld) 3.7 % 0-5 [facility] Chloride [Moles/Vol] 106 mmol/L 98-107 [facility] Eosinophils/100 WBC (Bld) 3.7 % 0-5 [facility] Glucose [Mass/Vol] 102 mg/dL 74-106 [facility] Comment on above: Fasting Glucose resu lt from 100 to 125 mg/dL suggests IMPAIRED HOMEOSTASIS per A.D.A. criteria. Neutrophils (Bld) [#/Vol] 2.8 10*3/uL 2.0-7.7 [facility] Neutrophils/100 WBC (Bld) 50.6 % 47-70 [facility] Potassium [Moles/Vol] 3.5 mmol/L 3.5-5.1 [facility] Sodium [Moles/Vol] 141 mmol/L 136-145 [facility] WBC (Bld) [#/Vol] 5.5 10*3/uL 4.4-11.0 [facility] Blood erythrocytes count (nu mber/volume)Ordered By: Dr. Conn on 05-04-2022 RBC (Bld) [#/Vol] 4.00 10*6/uL 4.6-6.2 [facility] Blood hemoglobin measurement (mass/volume)Ordered By: Dr. Conn on 05-04-2022 Hemoglobin (Bld) [Mass/Vol] 11.3 g/dL 13.0-16.5 [facility] Blood lymphocytes/100 leukoc ytesOrdered By: Dr. Conn on 05-04-2022 Lymphocytes/100 WBC (Bld) 35.6 % 19-41 [facility] Blood monocytes/100 leukocyt esOrdered By: Dr. Conn on 05-04-2022 Monocytes/100 WBC (Bld) 9.7 % 0-10 [facility] Blood platelet mean volumeOr dered By: Dr. Conn on 05-04-2022 Platelet mean volume (Bld) [Entitic vol] 10.8 fL 6.2-12.0 [facility] Determination of erythrocyte mean corpuscular volume (MCV)Ordered By: Dr. Conn on 05-04-2022 MCV (RBC) [Entitic vol] 87.3 fL 80-94 [facility] Hematocrit Auto (Bld) [Volum e fraction]Ordered By: Dr. Conn on 05-04-2022 Hematocrit (Bld) [Volume fraction] 34.9 % 40-54 [facility] Laboratory - Chemistry and C hemistry - challengeOrdered By: Dr. Conn on 05-04-2022 CO2 [Moles/Vol] 29.0 mmol/L 21.0-32.0 [facility] Urea nitrogen/Creatinine [Mass ratio] 62.5 mg/mg 10-20 [facility] Laboratory - Hematology and Cell countsOrdered By: Dr. Conn on 05-04-2022 Erythrocyte distribution width (RBC) [Entitic vol] 46.2 fL 35.1-43.9 [facility] Erythrocyte distribution width (RBC) [Ratio] 14.4 % 11.6-14.6 [facility] Immature granulocytes/100 WBC (Bld) 0.200 % 0.0-0.9 [facility] Comment on above: IG% - Immature Granu locytes (promyelocytes, myelocytes and metamyelocytes) > 1% indicates that a LEFT SHIFT is Present. MCH (RBC) [Entitic mass] 28.3 pg 27.0-32.0 [facility] Nucleated RBC/100 WBC (Bld) [Ratio] 0 % 0-5 [facility] MCHC Auto (RBC) [Mass/Vol]Or dered By: Dr. Conn on 05-04-2022 MCHC (RBC) [Mass/Vol] 32.4 g/dL 32-36 [facility] No Panel InformationOrdered By: Dr. Conn on 05-04-2022 Estimated GFR (MDRD) Amer 478 mL/min >60 [facility] Comment on above: GFR Calc Estimated GFR (MDRD) Non-Af Amer 395 mL/min >60 [facility] Comment on above: Non- GFR Calc 28.3 pg 27.0-32.0 [facility] 14.4 % 11.6-14.6 [facility] 46.2 fl 35.1-43.9 [facility] 0.200 % 0.0-0.9 [facility] 0 % 0-5 [facility] 395 mL/min >60 [facility] 478 mL/min >60 [facility] 62.5 RATIO 10-20 [facility] 29.0 mmol/L 21.0-32.0 [facility] Platelets bldOrdered By: Dr. Conn on 05-04-2022 Platelets (Bld) [#/Vol] 180 10*3/uL 150-450 [facility] Serum or plasma calcium jacinta urement (mass/volume)Ordered By: Dr. Conn on 05-04-2022 Calcium [Mass/Vol] 8.6 mg/dL 8.5-10.1 [facility] Serum or plasma creatinine m easurement (mass/volume)Ordered By: Dr. Conn on 05-04-2022 Creatinine [Mass/Vol] 0.27 mg/dL 0.70-1.30 [facility] Comment on above: The validity of the calculated GFR & GFRAA in patients over 70 years has not been determined. Clinical correlation is essential. Serum or plasma transthyreti n measurement (mass/volume)Ordered By: Dr. Conn on 05-04-2022 Prealbumin [Mass/Vol] 24.1 mg/dL 20.0-40.0 [facility] Serum or plasma urea nitroge n measurement (mass/volume)Ordered By: Dr. Conn on 05-04-2022 Urea nitrogen [Mass/Vol] 17 mg/dL 7-18 [facility] Thin prep Papanicolaou smear with manual screeningOrdered By: Dr. Conn on 05-04-2022 Thin prep Papanicolaou smear with manual screening 6 5-15 [facility] CNPNon 04-14-2022 CNPN Telephone ([facility]) -------- KRISS MICHAEL ([id number]) 1980 Date Time Provider Department 04/14/22 Yola LEAVITT During your visit today, we recorded the following information about you: Ebony Boateng 04/14/2022 12:39 PM Signed The patient had a Colostomy done by Dr leavitt. The patient 's mother (POA) States he is having issues with prolapse of colon, would like to see what could be done about this,. [phone] Ashly (mom) Geetha Walter RN 04/14/2022 1:40 PM Signed Called and spoke with mother Matteo Scheduled VV for her to further discuss options for Dr Leavitt Advised initially that in person visit mar be best, but patient is on a vent so it is difficult for him to travel, so we can start with VV in light of this information Allergies As of Date: 04/14/2022 Noted Allergy Reaction CODEINE 06/22/2005 14 - Other: See Comments Comments: hyperactivity per mom FLAGYL (METRONIDAZOLE HCL) 05/08/2014 2 - Rash MORPHINE 06/22/2005 14 - Other: See Comments Comments: causes hyperactivity per mom PROPULSID 02/08/2012 2 - Rash Date Reviewed: 12/27/2019 Reviewed by: Caryn (Rn) RE Reyes - Fully Assessed Reason for Visit: Patient Update [5374] Patient Question [3527] Prescriptions as of 04/14/2022 - baclofen (LIORESAL) 10 mg/ml liqd 2 mL by PEG route four times daily. - GABAPENTIN 300 MG/6 ML ORAL LIQUID UD CUP 100 mg at bedtime, 150 mg twice during the day - magnesium hydroxide (MILK OF MAGNESIA ORAL) Take by mouth as needed. - ferrous sulfate (IRON ORAL) Take by mouth once daily. - ascorbic acid (VITAMIN C ORAL) Take by mouth once daily. - cholecalciferol, vitamin D3, (VITAMIN D3 ORAL) Take by mouth once daily. - doxazosin (CARDURA) 2 mg tablet Take 2 mg by mouth daily at bedtime. - gabapentin (NEURONTIN) 300 mg/6 mL (6 mL) oral solution Take 6ml four times daily for a week, then 4ml four times daily. Consider decreasing to 2mg four times daily. - enoxaparin (LOVENOX) 80 mg/0.8 mL Inject 0.7 mL subcutaneously q 12 HR. - lactulose (DUPHALAC, CONSTULOSE) 10 g/15 mL soln Take 20 g by mouth twice daily. - potassium chloride 20 mEq/15 mL solution 15 mEq by PEG/JET route once daily. - phenobarbital/0.9 % sod chlor (PHENOBARBITAL IN 0.9 % SOD CHL) 10 mg/mL (1 mL) soln Inject intravenously. - PHENobarbital 10 mg/mL liqd oral liquid (SF) 60 mg twice daily. - simethicone (GENASYME, MYLICON) 40 mg/0.6 mL drops Add 120 mg to J-Tube four times daily as needed. - COMPOUNDED PRESCRIPTION Jevity 1.0 at 60 ml/hr x 24 hrs with 100 ml water flush 6 times per day [continuous feeding] - pantoprazole (PROTONIX) 2 mg/mL liqd 10 mL by ORAL/FEEDING TUBE route twice daily before meals (0600/1600). - polyethylene glycol 3350 (MIRALAX, GLYCOLAX) 17 gram packet 1 Packet by PEG route once daily. - sennosides (SENNA) 8.8 mg/5 mL syrup Take 5 mL by mouth twice daily as needed. - albuterol (PROVENTIL) 2.5 mg /3 mL (0.083 %) nebulizer solution Use 3 mL via nebulizer every 4 hours as needed for Wheezing/Shortness of Breath. - furosemide (LASIX) 10 mg/mL solution 2 mL by ORAL/FEEDING TUBE route once daily. - cetirizine (ZYRTEC) 10 mg tablet Take 1 tablet by mouth once daily. 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] 07/27/2005 Septic shock [A41.9, R65.21] 04/03/2011 03/09/2012 Acute respiratory failure (HCC) [J96.00] 04/03/2011 03/09/2012 SUMMARY [V999.95] 04/03/2011 04/11/2011 Transaminitis [R74.01] 04/06/2011 03/09/2012 Pancreatitis [K85.90] 04/07/2011 03/09/2012 Dilatation of colon [K59.39] 04/07/2011 03/09/2012 Upper GI bleed [K92.2] 04/11/2011 03/09/2012 Renal failure, acute (HCC) [N17.9] 04/13/2011 03/09/2012 Aspiration of gastric contents [T17.910A] 04/13/2011 03/09/2012 Hypernatremia [E87.0] 04/26/2011 03/09/2012 Congenital quadriplegia (HCC) [G80.8] 06/16/2011 Hypoxia [R09.02] 03/10/2012 03/11/2012 Spastic quadriparesis, 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 difficile colitis [A04.72] 12/13/2012 06/29/2018 SUMMARY [V999.95] 12/13/2012 Transaminitis [R74.01] 12/17/2012 Sepsis (HCC) [A41.9] 12/17/2012 Hyperthermia [R50.9] 01/13/2013 Seizures (HCC) [R56.9] 01/13/2013 Constipation [K59.00] 01/13/2013 Vomiting [R11.10] 01/13/2013 Skin rash [R21] 01/16/2013 Post-op pain [G89.18] 11/08/2014 DVT prophylaxis [Z79.899] 11/08/2014 Clostridium difficile infection [A4 (more content not included)... Normal [facility] CNPN Telephone (Rx[employer] ContainmentN) -------- KRISS MICHAEL ([id number]) 1980 M Date Time Provider Department 04/14/22 Yola LEAVITT During your visit today, we recorded the following information about you: Ebony Boateng 04/14/2022 1:21 PM Signed The patients mom stated that she can get into mychart. Allergies As of Date: 04/14/2022 Noted Allergy Reaction CODEINE 06/22/2005 14 - Other: See Comments Comments: hyperactivity per mom FLAGYL (METRONIDAZOLE HCL) 05/08/2014 2 - Rash MORPHINE 06/22/2005 14 - Other: See Comments Comments: causes hyperactivity per mom PROPULSID 02/08/2012 2 - Rash Date Reviewed: 12/27/2019 Reviewed by: Caryn CollinsRn) RE Reyes - Fully Assessed Reason for Visit: Patient Update [1234] Prescriptions as of 04/14/2022 - baclofen (LIORESAL) 10 mg/ml liqd 2 mL by PEG route four times daily. - GABAPENTIN 300 MG/6 ML ORAL LIQUID UD CUP 100 mg at bedtime, 150 mg twice during the day - magnesium hydroxide (MILK OF MAGNESIA ORAL) Take by mouth as needed. - ferrous sulfate (IRON ORAL) Take by mouth once daily. - ascorbic acid (VITAMIN C ORAL) Take by mouth once daily. - cholecalciferol, vitamin D3, (VITAMIN D3 ORAL) Take by mouth once daily. - doxazosin (CARDURA) 2 mg tablet Take 2 mg by mouth daily at bedtime. - gabapentin (NEURONTIN) 300 mg/6 mL (6 mL) oral solution Take 6ml four times daily for a week, then 4ml four times daily. Consider decreasing to 2mg four times daily. - enoxaparin (LOVENOX) 80 mg/0.8 mL Inject 0.7 mL subcutaneously q 12 HR. - lactulose (DUPHALAC, CONSTULOSE) 10 g/15 mL soln Take 20 g by mouth twice daily. - potassium chloride 20 mEq/15 mL solution 15 mEq by PEG/JET route once daily. - phenobarbital/0.9 % sod chlor (PHENOBARBITAL IN 0.9 % SOD CHL) 10 mg/mL (1 mL) soln Inject intravenously. - PHENobarbital 10 mg/mL liqd oral liquid (SF) 60 mg twice daily. - simethicone (GENASYME, MYLICON) 40 mg/0.6 mL drops Add 120 mg to J-Tube four times daily as needed. - COMPOUNDED PRESCRIPTION Jevity 1.0 at 60 ml/hr x 24 hrs with 100 ml water flush 6 times per day [continuous feeding] - pantoprazole (PROTONIX) 2 mg/mL liqd 10 mL by ORAL/FEEDING TUBE route twice daily before meals (0600/1600). - polyethylene glycol 3350 (MIRALAX, GLYCOLAX) 17 gram packet 1 Packet by PEG route once daily. - sennosides (SENNA) 8.8 mg/5 mL syrup Take 5 mL by mouth twice daily as needed. - albuterol (PROVENTIL) 2.5 mg /3 mL (0.083 %) nebulizer solution Use 3 mL via nebulizer every 4 hours as needed for Wheezing/Shortness of Breath. - furosemide (LASIX) 10 mg/mL solution 2 mL by ORAL/FEEDING TUBE route once daily. - cetirizine (ZYRTEC) 10 mg tablet Take 1 tablet by mouth once daily. 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] 07/27/2005 Septic shock [A41.9, R65.21] 04/03/2011 03/09/2012 Acute respiratory failure (HCC) [J96.00] 04/03/2011 03/09/2012 SUMMARY [V999.95] 04/03/2011 04/11/2011 Transaminitis [R74.01] 04/06/2011 03/09/2012 Pancreatitis [K85.90] 04/07/2011 03/09/2012 Dilatation of colon [K59.39] 04/07/2011 03/09/2012 Upper GI bleed [K92.2] 04/11/2011 03/09/2012 Renal failure, acute (HCC) [N17.9] 04/13/2011 03/09/2012 Aspiration of gastric contents [T17.910A] 04/13/2011 03/09/2012 Hypernatremia [E87.0] 04/26/2011 03/09/2012 Congenital quadriplegia (HCC) [G80.8] 06/16/2011 Hypoxia [R09.02] 03/10/2012 03/11/2012 Spastic quadriparesis, 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 difficile colitis [A04.72] 12/13/2012 06/29/2018 SUMMARY [V999.95] 12/13/2012 Transaminitis [R74.01] 12/17/2012 Sepsis (HCC) [A41.9] 12/17/2012 Hyperthermia [R50.9] 01/13/2013 Seizures (HCC) [R56.9] 01/13/2013 Constipation [K59.00] 01/13/2013 Vomiting [R11.10] 01/13/2013 Skin rash [R21] 01/16/2013 Post-op pain [G89.18] 11/08/2014 DVT prophylaxis [Z79.899] 11/08/2014 Clostridium difficile infection [A49.8] 11/13/2014 Chronic constipation [K59.09] 11/13/2014 Congenital cerebral palsy (HCC) [G80.9] 11/13/2014 Recurrent aspiration pneumonia (HCC) [J69.0] 11/13/2014 SUMMARY 11/16/2014 Hyponatremia [E87.1] 11/16/2014 Hematemesis [K92.0] 11/16/2014 On tube feeding diet [Z78.9] 11/20/2014 Spasticity [R25.2] 03/02/2018 Respiratory failure (HCC) [J96.90] 04/01/2018 Obesity, Class I, BMI 30-34.9 [E66.9] 04/02/2018 Status post insertion of intrathecal baclofen p*04/05/2018 Aspiration (more content not included)... Normal [facility] Absolute lymphocyte countOrd ered By: Dr. Alexandre on 04-01-2022 Lymphocytes Auto (Unsp spec) [#/Vol] 2.64 10*3/uL 0.83-4.51 [facility] Basophil percentageOrdered B y: Dr. Alexandre on 04-01-2022 Basophil percentage 122 mg/dL 74-106 [facility] Basophil percentage 145 mmol/L 136-145 [facility] Basophil percentage 3.5 mmol/L 3.5-5.1 [facility] Basophil percentage 110 mmol/L 98-107 [facility] Basophils (Bld) [#/Vol] 6.6 10*3/uL 4.4-11.0 [facility] Basophils (Bld) [#/Vol] 3.1 10*3/uL 2.0-7.7 [facility] Basophils/100 WBC (Bld) 0.2 % 0-1 [facility] Basophils/100 WBC (Bld) 46.7 % 47-70 [facility] Basophils/100 WBC (Bld) 2.1 % 0-5 [facility] Chloride [Moles/Vol] 110 mmol/L 98-107 [facility] Eosinophils/100 WBC (Bld) 2.1 % 0-5 [facility] Glucose [Mass/Vol] 122 mg/dL 74-106 [facility] Comment on above: Fasting Glucose resu lt from 100 to 125 mg/dL suggests IMPAIRED HOMEOSTASIS per A.D.A. criteria. Neutrophils (Bld) [#/Vol] 3.1 10*3/uL 2.0-7.7 [facility] Neutrophils/100 WBC (Bld) 46.7 % 47-70 [facility] Potassium [Moles/Vol] 3.5 mmol/L 3.5-5.1 [facility] Sodium [Moles/Vol] 145 mmol/L 136-145 [facility] WBC (Bld) [#/Vol] 6.6 10*3/uL 4.4-11.0 [facility] Blood erythrocytes count (nu mber/volume)Ordered By: Dr. Alexandre on 04-01-2022 RBC (Bld) [#/Vol] 3.33 10*6/uL 4.6-6.2 [facility] Blood hemoglobin measurement (mass/volume)Ordered By: Dr. Alexandre on 04-01-2022 Hemoglobin (Bld) [Mass/Vol] 9.2 g/dL 13.0-16.5 [facility] Blood lymphocytes/100 leukoc ytesOrdered By: Dr. Alexandre on 04-01-2022 Lymphocytes/100 WBC (Bld) 39.9 % 19-41 [facility] Blood monocytes/100 leukocyt esOrdered By: Dr. Alexandre on 04-01-2022 Monocytes/100 WBC (Bld) 10.0 % 0-10 [facility] Blood platelet mean volumeOr dered By: Dr. Alexandre on 04-01-2022 Platelet mean volume (Bld) [Entitic vol] 9.6 fL 6.2-12.0 [facility] Determination of erythrocyte mean corpuscular volume (MCV)Ordered By: Dr. Alexandre on 04-01-2022 MCV (RBC) [Entitic vol] 88.6 fL 80-94 [facility] Hematocrit Auto (Bld) [Volum e fraction]Ordered By: Dr. Alexandre on 04-01-2022 Hematocrit (Bld) [Volume fraction] 29.5 % 40-54 [facility] Laboratory - Chemistry and C hemistry - challengeOrdered By: Dr. Alexandre on 04-01-2022 CO2 [Moles/Vol] 29.0 mmol/L 21.0-32.0 [facility] Urea nitrogen/Creatinine [Mass ratio] 43.7 mg/mg 10-20 [facility] Laboratory - Hematology and Cell countsOrdered By: Dr. Alexandre on 04-01-2022 Erythrocyte distribution width (RBC) [Entitic vol] 48.4 fL 35.1-43.9 [facility] Erythrocyte distribution width (RBC) [Ratio] 15.0 % 11.6-14.6 [facility] Immature granulocytes/100 WBC (Bld) 1.100 % 0.0-0.9 [facility] Comment on above: IG% - Immature Granu locytes (promyelocytes, myelocytes and metamyelocytes) > 1% indicates that a LEFT SHIFT is Present. MCH (RBC) [Entitic mass] 27.6 pg 27.0-32.0 [facility] Nucleated RBC/100 WBC (Bld) [Ratio] 0 % 0-5 [facility] MCHC Auto (RBC) [Mass/Vol]Or dered By: Dr. Alexandre on 04-01-2022 MCHC (RBC) [Mass/Vol] 31.2 g/dL 32-36 [facility] No Panel InformationOrdered By: Dr. Alexandre on 04-01-2022 Estimated Creatinine Clearance Calc 460.75 ml/min [facility] Estimated GFR (MDRD) Amer 583 mL/min >60 [facility] Comment on above: GFR Calc Estimated GFR (MDRD) Non-Af Amer 482 mL/min >60 [facility] Comment on above: Non- GFR Calc 27.6 pg 27.0-32.0 [facility] 15.0 % 11.6-14.6 [facility] 48.4 fl 35.1-43.9 [facility] 1.100 % 0.0-0.9 [facility] 0 % 0-5 [facility] 482 mL/min >60 [facility] 583 mL/min >60 [facility] 460.75 ml/min [facility] 43.7 RATIO 10-20 [facility] 29.0 mmol/L 21.0-32.0 [facility] Platelets bldOrdered By: Dr. Alexandre on 04-01-2022 Platelets (Bld) [#/Vol] 237 10*3/uL 150-450 [facility] Serum or plasma calcium jacinta urement (mass/volume)Ordered By: Dr. Alexandre on 04-01-2022 Calcium [Mass/Vol] 8.2 mg/dL 8.5-10.1 [facility] Serum or plasma creatinine m easurement (mass/volume)Ordered By: Dr. Alexandre on 04-01-2022 Creatinine [Mass/Vol] 0.23 mg/dL 0.70-1.30 [facility] Comment on above: The validity of the calculated GFR & GFRAA in patients over 70 years has not been determined. Clinical correlation is essential. Serum or plasma urea nitroge n measurement (mass/volume)Ordered By: Dr. Alexandre on 04-01-2022 Urea nitrogen [Mass/Vol] 10 mg/dL 7-18 [facility] Thin prep Papanicolaou smear with manual screeningOrdered By: Dr. Alexandre on 04-01-2022 Thin prep Papanicolaou smear with manual screening 6 5-15 [facility] Basophil percentageOrdered B y: Dr. Dillard on 03-30-2022 Basophil percentage 7.2 g/dL 6.4-8.2 [facility] Basophil percentage 0.20 mg/dL 0.20-1.00 [facility] Bilirubin [Mass/Vol] 0.20 mg/dL 0.20-1.00 [facility] Comment on above: For patients on eltr ombopag therapy, use of Dimension [place] TBIL is not recommended. Protein [Mass/Vol] 7.2 g/dL 6.4-8.2 [facility] Laboratory - Chemistry and C hemistry - challengeOrdered By: Dr. Dillard on 03-30-2022 ALP [Catalytic activity/Vol] 79 U/L 45-117 [facility] ALT [Catalytic activity/Vol] 19 U/L 16-61 [facility] Globulin (S) [Mass/Vol] 4.5 g/dL 2.2-4.2 [facility] Laboratory - Microbiology an d Antimicrobial susceptibilityOrdered By: Dr. De La Torre on 03-30-2022 Bacteria identified Cx Nom (Bld) No growth in 5 days. [facility] No Panel InformationOrdered By: Dr. Dillard on 03-30-2022 4.5 g/dL 2.2-4.2 [facility] 79 U/L 45-117 [facility] 19 U/L 16-61 [facility] No Panel InformationOrdered By: Dr. De La Torre on 03-30-2022 No growth in 5 days. [facility] Serum or plasma albumin jacinta urement (mass/volume)Ordered By: Dr. Dillard on 03-30-2022 Albumin [Mass/Vol] 2.7 g/dL 3.2-5.0 [facility] Serum or plasma albumin/glob ulin mass ratioOrdered By: Dr. Dillard on 03-30-2022 Albumin/Globulin [Mass ratio] 0.6 {ratio} 0.9-2.4 [facility] Thin prep Papanicolaou smear with manual screeningOrdered By: Dr. Dillard on 03-30-2022 Thin prep Papanicolaou smear with manual screening 9 U/L 15-37 [facility] Bacteria identified Respirat ory culture Nom (Unsp spec)Ordered By: Dr. De La Torre on 03-27-2022 Respiratory Culture Proteus mirabilis [facility] Respiratory Culture Streptococcus agalactiae (B) [facility] Microbial respiratory culture Proteus mirabilis [facility] Microbial respiratory culture Streptococcus agalactiae (B) [facility] Basophil percentageOrdered B y: Dr. Dillard on 03-25-2022 Basophil percentage 0.7 mmol/L 0.4-2.0 [facility] Lactate [Moles/Vol] 0.7 mmol/L 0.4-2.0 [facility] Gram stain for investigation of transfusion reactionOrdered By: Dr. De La Torre on 03-25-2022 Microscopic observation Gram stain Nom (Unsp spec) [facility] Laboratory - Microbiology an d Antimicrobial susceptibilityOrdered By: Dr. Echavarria on 03-25-2022 Respiratory pathogens DNA and RNA 12b panel YAYO+probe (Unsp spec) [facility] Absolute lymphocyte countOrd ered By: Dr. De La Torre on 03-24-2022 Lymphocytes Auto (Unsp spec) [#/Vol] 0.99 10*3/uL 0.83-4.51 [facility] Basophil percentageOrdered B y: Dr. De La Torre on 03-24-2022 Basophil percentage 2.9 mmol/L 0.4-2.0 [facility] Basophil percentage 0-5 SEEN /hpf 0-5 [facility] Basophil percentage 145 mg/dL 74-106 [facility] Basophil percentage 133 mmol/L 136-145 [facility] Basophil percentage 3.8 mmol/L 3.5-5.1 [facility] Basophil percentage 99 mmol/L 98-107 [facility] Basophils (Bld) [#/Vol] 7.5 10*3/uL 4.4-11.0 [facility] Basophils (Bld) [#/Vol] 6.0 10*3/uL 2.0-7.7 [facility] Basophils/100 WBC (Bld) 0.3 % 0-1 [facility] Basophils/100 WBC (Bld) 79.9 % 47-70 [facility] Basophils/100 WBC (Bld) 1.3 % 0-5 [facility] Chloride [Moles/Vol] 99 mmol/L 98-107 [facility] Eosinophils/100 WBC (Bld) 1.3 % 0-5 [facility] Glucose [Mass/Vol] 145 mg/dL 74-106 [facility] Comment on above: Fasting Glucose resu lt greater than or equal to 126 mg/dL suggests DIABETES MELLITUS per A.D.A. criteria. Lactate [Moles/Vol] 2.7 mmol/L 0.4-2.0 [facility] Comment on above: Critical Result(s) C alled at: 18:44:06 03/24/2022 by: MARIBEL [facility] [place]. Results read back by same. Neutrophils (Bld) [#/Vol] 6.0 10*3/uL 2.0-7.7 [facility] Neutrophils/100 WBC (Bld) 79.9 % 47-70 [facility] Potassium [Moles/Vol] 3.8 mmol/L 3.5-5.1 [facility] Sodium [Moles/Vol] 133 mmol/L 136-145 [facility] WBC (Bld) [#/Vol] 7.5 10*3/uL 4.4-11.0 [facility] Basophil percentageOrdered B y: Dr. Echavarria on 03-24-2022 Basophil percentage 8.3 g/dL 6.4-8.2 [facility] Basophil percentage 0.30 mg/dL 0.20-1.00 [facility] Bilirubin Test strip Ql (U)O rdered By: Dr. De La Torre on 03-24-2022 Bilirubin Ql (U) Negative Negative [facility] Blood erythrocytes count (nu mber/volume)Ordered By: Dr. De La Torre on 03-24-2022 RBC (Bld) [#/Vol] 4.25 10*6/uL 4.6-6.2 [facility] Blood hemoglobin measurement (mass/volume)Ordered By: Dr. De La Torre on 03-24-2022 Hemoglobin (Bld) [Mass/Vol] 11.5 g/dL 13.0-16.5 [facility] Blood lymphocytes/100 leukoc ytesOrdered By: Dr. De La Torre on 03-24-2022 Lymphocytes/100 WBC (Bld) 13.1 % 19-41 [facility] Blood monocytes/100 leukocyt esOrdered By: Dr. De La Torre on 03-24-2022 Monocytes/100 WBC (Bld) 5.3 % 0-10 [facility] Blood platelet mean volumeOr dered By: Dr. De La Torre on 03-24-2022 Platelet mean volume (Bld) [Entitic vol] 10.4 fL 6.2-12.0 [facility] Determination of erythrocyte mean corpuscular volume (MCV)Ordered By: Dr. De La Torre on 03-24-2022 MCV (RBC) [Entitic vol] 85.4 fL 80-94 [facility] Direct bilirubinOrdered By: Dr. Echavarria on 03-24-2022 Bilirubin.direct [Mass/Vol] 0.07 mg/dL 0.00-0.30 [facility] Hematocrit Auto (Bld) [Volum e fraction]Ordered By: Dr. De La Torre on 03-24-2022 Hematocrit (Bld) [Volume fraction] 36.3 % 40-54 [facility] Influenza virus A and B and SARS-CoV-2 (COVID-19) Ag panel - Upper respiratory specimOrdered By: Dr. De La Torre on 03-24-2022 SARS-CoV-2 (COVID-19) RNA YAYO+probe Ql (Resp) [facility] Ketones Test strip Ql (U)Ord ered By: Dr. De La Torre on 03-24-2022 Ketones Ql (U) 15 mg/dl Negative [facility] Laboratory - Chemistry and C hemistry - challengeOrdered By: Dr. De La Torre on 03-24-2022 CO2 [Moles/Vol] 23.0 mmol/L 21.0-32.0 [facility] Urea nitrogen/Creatinine [Mass ratio] 22.2 mg/mg 10-20 [facility] Laboratory - Hematology and Cell countsOrdered By: Dr. De La Torre on 03-24-2022 Erythrocyte distribution width (RBC) [Entitic vol] 43.3 fL 35.1-43.9 [facility] Erythrocyte distribution width (RBC) [Ratio] 14.0 % 11.6-14.6 [facility] Immature granulocytes/100 WBC (Bld) 0.100 % 0.0-0.9 [facility] Comment on above: IG% - Immature Granu locytes (promyelocytes, myelocytes and metamyelocytes) > 1% indicates that a LEFT SHIFT is Present. MCH (RBC) [Entitic mass] 27.1 pg 27.0-32.0 [facility] Nucleated RBC/100 WBC (Bld) [Ratio] 0 % 0-5 [facility] MCHC Auto (RBC) [Mass/Vol]Or dered By: Dr. De La Torre on 03-24-2022 MCHC (RBC) [Mass/Vol] 31.7 g/dL 32-36 [facility] Mucus LM Ql (Urine sed)Order ed By: Dr. De La Torre on 03-24-2022 Mucus Ql (Urine sed) 0 SEEN /hpf [facility] Nitrite Test strip Ql (U)Ord ered By: Dr. De La Torre on 03-24-2022 Nitrite Ql (U) Negative Negative [facility] No Panel InformationOrdered By: Dr. De La Torre on 03-24-2022 Estimated Creatinine Clearance Calc 154.32 ml/min [facility] Estimated GFR (MDRD) Amer 267 mL/min >60 [facility] Comment on above: GFR Calc Estimated GFR (MDRD) Non-Af Amer 220 mL/min >60 [facility] Comment on above: Non- GFR Calc 27.1 pg 27.0-32.0 [facility] 14.0 % 11.6-14.6 [facility] 43.3 fl 35.1-43.9 [facility] 0.100 % 0.0-0.9 [facility] 0 % 0-5 [facility] 220 mL/min >60 [facility] 267 mL/min >60 [facility] 154.32 ml/min [facility] 22.2 RATIO 10-20 [facility] 23.0 mmol/L 21.0-32.0 [facility] No Panel InformationOrdered By: Dr. Echavarria on 03-24-2022 4.9 g/dL 2.2-4.2 [facility] 137 U/L 45-117 [facility] 20 U/L 16-61 [facility] Platelets bldOrdered By: Dr. De La Torre on 03-24-2022 Platelets (Bld) [#/Vol] 141 10*3/uL 150-450 [facility] Protein Test strip Ql (U)Ord ered By: Dr. De La Torre on 03-24-2022 Protein Ql (U) 30 mg/dl Negative [facility] Serum or plasma albumin jacinta urement (mass/volume)Ordered By: Dr. Echavarria on 03-24-2022 Albumin [Mass/Vol] 3.4 g/dL 3.2-5.0 [facility] Serum or plasma calcium jacinta urement (mass/volume)Ordered By: Dr. De La Torre on 03-24-2022 Calcium [Mass/Vol] 8.6 mg/dL 8.5-10.1 [facility] Serum or plasma creatinine m easurement (mass/volume)Ordered By: Dr. De La Torre on 03-24-2022 Creatinine [Mass/Vol] 0.45 mg/dL 0.70-1.30 [facility] Comment on above: The validity of the calculated GFR & GFRAA in patients over 70 years has not been determined. Clinical correlation is essential. Serum or plasma urea nitroge n measurement (mass/volume)Ordered By: Dr. De La Torre on 03-24-2022 Urea nitrogen [Mass/Vol] 10 mg/dL 7-18 [facility] Squamous epithelial cells de tection in urine sediment by light microscopyOrdered By: Dr. De La Torre on 03-24-2022 Epithelial cells.squamous LM Ql (Urine sed) 0 SEEN /hpf 0-5 [facility] Thin prep Papanicolaou smear with manual screeningOrdered By: Dr. De La Torre on 03-24-2022 Thin prep Papanicolaou smear with manual screening 11 5-15 [facility] Thin prep Papanicolaou smear with manual screeningOrdered By: Dr. Echavarria on 03-24-2022 Thin prep Papanicolaou smear with manual screening 22 U/L 15-37 [facility] Urine blood detectionOrdered By: Dr. De La Torre on 03-24-2022 RBC Ql (U) 10 /ul Negative [facility] RBC Ql (U) 0-5 SEEN /hpf 0-5 [facility] Urine clarityOrdered By: Dr. De La Torre on 03-24-2022 Clarity (U) Clear Clear [facility] Urine color determinationOrd ered By: Dr. De La Torre on 03-24-2022 Color (U) Yellow Yellow [facility] Urine glucose detectionOrder ed By: Dr. De La Torre on 03-24-2022 Glucose Ql (U) Normal mg/dl Normal [facility] Urine leukocyte esterase det ection by dipstickOrdered By: Dr. De La Torre on 03-24-2022 Leukocyte esterase Test strip Ql (U) 25 /ul Negative [facility] Urine pHOrdered By: Dr. Walter hidalgo on 03-24-2022 pH (U) 7.0 [pH] 5.0 - 8.0 [facility] Urine sediment bacteria coun t by microscopy (number/high power field)Ordered By: Dr. De La Torre on 03-24-2022 Bacteria LM.HPF (Urine sed) [#/Area] 0 /[HPF] None Seen [facility] Urine specific gravity measu rementOrdered By: Dr. De La Torre on 03-24-2022 Specific gravity (U) [Rel density] 1.005 1.002-1.030 [facility] Urobilinogen Auto test strip Ql (U)Ordered By: Dr. De La Torre on 03-24-2022 Urobilinogen Ql (U) Normal mg/dl Normal [facility] Absolute lymphocyte countOrd ered By: Dr. Waite on 03-23-2022 Lymphocytes Auto (Unsp spec) [#/Vol] 1.82 10*3/uL 0.83-4.51 [facility] Basophil percentageOrdered B y: Dr. Waite on 03-23-2022 Basophil percentage 104 mg/dL 74-106 [facility] Basophil percentage 139 mmol/L 136-145 [facility] Basophil percentage 3.8 mmol/L 3.5-5.1 [facility] Basophil percentage 104 mmol/L 98-107 [facility] Basophils (Bld) [#/Vol] 6.6 10*3/uL 4.4-11.0 [facility] Basophils (Bld) [#/Vol] 3.9 10*3/uL 2.0-7.7 [facility] Basophils/100 WBC (Bld) 0.2 % 0-1 [facility] Basophils/100 WBC (Bld) 59.9 % 47-70 [facility] Basophils/100 WBC (Bld) 3.8 % 0-5 [facility] Chloride [Moles/Vol] 104 mmol/L 98-107 [facility] Eosinophils/100 WBC (Bld) 3.8 % 0-5 [facility] Glucose [Mass/Vol] 104 mg/dL 74-106 [facility] Comment on above: Fasting Glucose resu lt from 100 to 125 mg/dL suggests IMPAIRED HOMEOSTASIS per A.D.A. criteria. Neutrophils (Bld) [#/Vol] 3.9 10*3/uL 2.0-7.7 [facility] Neutrophils/100 WBC (Bld) 59.9 % 47-70 [facility] Potassium [Moles/Vol] 3.8 mmol/L 3.5-5.1 [facility] Sodium [Moles/Vol] 139 mmol/L 136-145 [facility] WBC (Bld) [#/Vol] 6.6 10*3/uL 4.4-11.0 [facility] Blood erythrocytes count (nu mber/volume)Ordered By: Dr. Waite on 03-23-2022 RBC (Bld) [#/Vol] 4.00 10*6/uL 4.6-6.2 [facility] Blood hemoglobin measurement (mass/volume)Ordered By: Dr. Waite on 03-23-2022 Hemoglobin (Bld) [Mass/Vol] 10.8 g/dL 13.0-16.5 [facility] Blood lymphocytes/100 leukoc ytesOrdered By: Dr. Waite on 03-23-2022 Lymphocytes/100 WBC (Bld) 27.7 % 19-41 [facility] Blood monocytes/100 leukocyt esOrdered By: Dr. Waite on 03-23-2022 Monocytes/100 WBC (Bld) 7.9 % 0-10 [facility] Blood platelet mean volumeOr dered By: Dr. Waite on 03-23-2022 Platelet mean volume (Bld) [Entitic vol] 10.2 fL 6.2-12.0 [facility] Determination of erythrocyte mean corpuscular volume (MCV)Ordered By: Dr. Waite on 03-23-2022 MCV (RBC) [Entitic vol] 86.0 fL 80-94 [facility] Hematocrit Auto (Bld) [Volum e fraction]Ordered By: Dr. Waite on 03-23-2022 Hematocrit (Bld) [Volume fraction] 34.4 % 40-54 [facility] Laboratory - Chemistry and C hemistry - challengeOrdered By: Dr. Waite on 03-23-2022 CO2 [Moles/Vol] 31.0 mmol/L 21.0-32.0 [facility] Urea nitrogen/Creatinine [Mass ratio] 60.0 mg/mg 10-20 [facility] Laboratory - Hematology and Cell countsOrdered By: Dr. Waite on 03-23-2022 Erythrocyte distribution width (RBC) [Entitic vol] 43.8 fL 35.1-43.9 [facility] Erythrocyte distribution width (RBC) [Ratio] 13.9 % 11.6-14.6 [facility] Immature granulocytes/100 WBC (Bld) 0.500 % 0.0-0.9 [facility] Comment on above: IG% - Immature Granu locytes (promyelocytes, myelocytes and metamyelocytes) > 1% indicates that a LEFT SHIFT is Present. MCH (RBC) [Entitic mass] 27.0 pg 27.0-32.0 [facility] Nucleated RBC/100 WBC (Bld) [Ratio] 0 % 0-5 [facility] MCHC Auto (RBC) [Mass/Vol]Or dered By: Dr. Waite on 03-23-2022 MCHC (RBC) [Mass/Vol] 31.4 g/dL 32-36 [facility] No Panel InformationOrdered By: Dr. Waite on 03-23-2022 Estimated GFR (MDRD) Amer 527 mL/min >60 [facility] Comment on above: GFR Calc Estimated GFR (MDRD) Non-Af Amer 435 mL/min >60 [facility] Comment on above: Non- GFR Calc 27.0 pg 27.0-32.0 [facility] 13.9 % 11.6-14.6 [facility] 43.8 fl 35.1-43.9 [facility] 0.500 % 0.0-0.9 [facility] 0 % 0-5 [facility] 435 mL/min >60 [facility] 527 mL/min >60 [facility] 60.0 RATIO 10-20 [facility] 31.0 mmol/L 21.0-32.0 [facility] Platelets bldOrdered By: Dr. Waite on 03-23-2022 Platelets (Bld) [#/Vol] 169 10*3/uL 150-450 [facility] Serum or plasma calcium jacinta urement (mass/volume)Ordered By: Dr. Waite on 03-23-2022 Calcium [Mass/Vol] 8.3 mg/dL 8.5-10.1 [facility] Serum or plasma creatinine m easurement (mass/volume)Ordered By: Dr. Waite on 03-23-2022 Creatinine [Mass/Vol] 0.25 mg/dL 0.70-1.30 [facility] Comment on above: The validity of the calculated GFR & GFRAA in patients over 70 years has not been determined. Clinical correlation is essential. Serum or plasma urea nitroge n measurement (mass/volume)Ordered By: Dr. Waite on 03-23-2022 Urea nitrogen [Mass/Vol] 15 mg/dL 7-18 [facility] Thin prep Papanicolaou smear with manual screeningOrdered By: Dr. Waite on 03-23-2022 Thin prep Papanicolaou smear with manual screening 4 5-15 [facility] Absolute lymphocyte countOrd ered By: Dr. De La Torre on 02-24-2022 Lymphocytes Auto (Unsp spec) [#/Vol] 2.18 10*3/uL 0.83-4.51 [facility] Basophil percentageOrdered B y: Dr. De La Torre on 02-24-2022 Basophil percentage 110 mg/dL 74-106 [facility] Basophil percentage 8.8 g/dL 6.4-8.2 [facility] Basophil percentage 0.20 mg/dL 0.20-1.00 [facility] Basophil percentage 135 mmol/L 136-145 [facility] Basophil percentage 4.2 mmol/L 3.5-5.1 [facility] Basophil percentage 102 mmol/L 98-107 [facility] Basophils (Bld) [#/Vol] 7.9 10*3/uL 4.4-11.0 [facility] Basophils (Bld) [#/Vol] 4.6 10*3/uL 2.0-7.7 [facility] Basophils/100 WBC (Bld) 0.3 % 0-1 [facility] Basophils/100 WBC (Bld) 58.7 % 47-70 [facility] Basophils/100 WBC (Bld) 4.4 % 0-5 [facility] Bilirubin [Mass/Vol] 0.20 mg/dL 0.20-1.00 [facility] Comment on above: For patients on eltr ombopag therapy, use of Dimension [place] TBIL is not recommended. Chloride [Moles/Vol] 102 mmol/L 98-107 [facility] Eosinophils/100 WBC (Bld) 4.4 % 0-5 [facility] Glucose [Mass/Vol] 110 mg/dL 74-106 [facility] Comment on above: Fasting Glucose resu lt from 100 to 125 mg/dL suggests IMPAIRED HOMEOSTASIS per A.D.A. criteria. Neutrophils (Bld) [#/Vol] 4.6 10*3/uL 2.0-7.7 [facility] Neutrophils/100 WBC (Bld) 58.7 % 47-70 [facility] Potassium [Moles/Vol] 4.2 mmol/L 3.5-5.1 [facility] Protein [Mass/Vol] 8.8 g/dL 6.4-8.2 [facility] Sodium [Moles/Vol] 135 mmol/L 136-145 [facility] WBC (Bld) [#/Vol] 7.9 10*3/uL 4.4-11.0 [facility] Blood erythrocytes count (nu mber/volume)Ordered By: Dr. De La Torre on 02-24-2022 RBC (Bld) [#/Vol] 4.41 10*6/uL 4.6-6.2 [facility] Blood hemoglobin measurement (mass/volume)Ordered By: Dr. De La Torre on 02-24-2022 Hemoglobin (Bld) [Mass/Vol] 12.1 g/dL 13.0-16.5 [facility] Blood lymphocytes/100 leukoc ytesOrdered By: Dr. De La Torre on 02-24-2022 Lymphocytes/100 WBC (Bld) 27.6 % 19-41 [facility] Blood monocytes/100 leukocyt esOrdered By: Dr. De La Torre on 02-24-2022 Monocytes/100 WBC (Bld) 8.7 % 0-10 [facility] Blood platelet mean volumeOr dered By: Dr. De La Torre on 02-24-2022 Platelet mean volume (Bld) [Entitic vol] 9.7 fL 6.2-12.0 [facility] Determination of erythrocyte mean corpuscular volume (MCV)Ordered By: Dr. De La Torre on 02-24-2022 MCV (RBC) [Entitic vol] 85.0 fL 80-94 [facility] Hematocrit Auto (Bld) [Volum e fraction]Ordered By: Dr. De La Torre on 02-24-2022 Hematocrit (Bld) [Volume fraction] 37.5 % 40-54 [facility] Laboratory - Chemistry and C hemistry - challengeOrdered By: Dr. De La Torre on 02-24-2022 ALP [Catalytic activity/Vol] 162 U/L 45-117 [facility] ALT [Catalytic activity/Vol] 23 U/L 16-61 [facility] CO2 [Moles/Vol] 26.0 mmol/L 21.0-32.0 [facility] Globulin (S) [Mass/Vol] 5.4 g/dL 2.2-4.2 [facility] Urea nitrogen/Creatinine [Mass ratio] 34.3 mg/mg 10-20 [facility] Laboratory - Hematology and Cell countsOrdered By: Dr. De La Torre on 02-24-2022 Erythrocyte distribution width (RBC) [Entitic vol] 41.9 fL 35.1-43.9 [facility] Erythrocyte distribution width (RBC) [Ratio] 13.4 % 11.6-14.6 [facility] Immature granulocytes/100 WBC (Bld) 0.300 % 0.0-0.9 [facility] Comment on above: IG% - Immature Granu locytes (promyelocytes, myelocytes and metamyelocytes) > 1% indicates that a LEFT SHIFT is Present. MCH (RBC) [Entitic mass] 27.4 pg 27.0-32.0 [facility] Nucleated RBC/100 WBC (Bld) [Ratio] 0 % 0-5 [facility] MCHC Auto (RBC) [Mass/Vol]Or dered By: Dr. De La Torre on 02-24-2022 MCHC (RBC) [Mass/Vol] 32.3 g/dL 32-36 [facility] No Panel InformationOrdered By: Dr. De La Torre on 02-24-2022 Estimated Creatinine Clearance Calc 169.38 ml/min [facility] Estimated GFR (MDRD) Amer 299 mL/min >60 [facility] Comment on above: GFR Calc Estimated GFR (MDRD) Non-Af Amer 247 mL/min >60 [facility] Comment on above: Non- GFR Calc 27.4 pg 27.0-32.0 [facility] 13.4 % 11.6-14.6 [facility] 41.9 fl 35.1-43.9 [facility] 0.300 % 0.0-0.9 [facility] 0 % 0-5 [facility] 247 mL/min >60 [facility] 299 mL/min >60 [facility] 169.38 ml/min [facility] 34.3 RATIO 10-20 [facility] 5.4 g/dL 2.2-4.2 [facility] 162 U/L 45-117 [facility] 23 U/L 16-61 [facility] 26.0 mmol/L 21.0-32.0 [facility] Platelets bldOrdered By: Dr. De La Torre on 02-24-2022 Platelets (Bld) [#/Vol] 210 10*3/uL 150-450 [facility] Serum or plasma albumin jacinta urement (mass/volume)Ordered By: Dr. De La Torre on 02-24-2022 Albumin [Mass/Vol] 3.4 g/dL 3.2-5.0 [facility] Serum or plasma albumin/glob ulin mass ratioOrdered By: Dr. De La Torre on 02-24-2022 Albumin/Globulin [Mass ratio] 0.6 {ratio} 0.9-2.4 [facility] Serum or plasma calcium jacinta urement (mass/volume)Ordered By: Dr. De La Torre on 02-24-2022 Calcium [Mass/Vol] 9.0 mg/dL 8.5-10.1 [facility] Serum or plasma creatinine m easurement (mass/volume)Ordered By: Dr. De La Torre on 02-24-2022 Creatinine [Mass/Vol] 0.41 mg/dL 0.70-1.30 [facility] Comment on above: The validity of the calculated GFR & GFRAA in patients over 70 years has not been determined. Clinical correlation is essential. Serum or plasma urea nitroge n measurement (mass/volume)Ordered By: Dr. De La Torre on 02-24-2022 Urea nitrogen [Mass/Vol] 14 mg/dL 7-18 [facility] Thin prep Papanicolaou smear with manual screeningOrdered By: Dr. De La Torre on 02-24-2022 Thin prep Papanicolaou smear with manual screening 11 U/L 15-37 [facility] Thin prep Papanicolaou smear with manual screening 7 5-15 [facility] Absolute lymphocyte countOrd ered By: Dr. Waite on 02-06-2022 Lymphocytes Auto (Unsp spec) [#/Vol] 1.84 10*3/uL 0.83-4.51 [facility] Basophil percentageOrdered B y: Dr. Waite on 02-06-2022 Basophil percentage 113 mg/dL 74-106 [facility] Basophil percentage 138 mmol/L 136-145 [facility] Basophil percentage 3.8 mmol/L 3.5-5.1 [facility] Basophil percentage 103 mmol/L 98-107 [facility] Basophils (Bld) [#/Vol] 7.8 10*3/uL 4.4-11.0 [facility] Basophils (Bld) [#/Vol] 5.1 10*3/uL 2.0-7.7 [facility] Basophils/100 WBC (Bld) 0.1 % 0-1 [facility] Basophils/100 WBC (Bld) 65.4 % 47-70 [facility] Basophils/100 WBC (Bld) 4.0 % 0-5 [facility] Chloride [Moles/Vol] 103 mmol/L 98-107 [facility] Eosinophils/100 WBC (Bld) 4.0 % 0-5 [facility] Glucose [Mass/Vol] 113 mg/dL 74-106 [facility] Comment on above: Fasting Glucose resu lt from 100 to 125 mg/dL suggests IMPAIRED HOMEOSTASIS per A.D.A. criteria. Neutrophils (Bld) [#/Vol] 5.1 10*3/uL 2.0-7.7 [facility] Neutrophils/100 WBC (Bld) 65.4 % 47-70 [facility] Potassium [Moles/Vol] 3.8 mmol/L 3.5-5.1 [facility] Sodium [Moles/Vol] 138 mmol/L 136-145 [facility] WBC (Bld) [#/Vol] 7.8 10*3/uL 4.4-11.0 [facility] Blood erythrocytes count (nu mber/volume)Ordered By: Dr. Waite on 02-06-2022 RBC (Bld) [#/Vol] 4.00 10*6/uL 4.6-6.2 [facility] Blood hemoglobin measurement (mass/volume)Ordered By: Dr. Waite on 02-06-2022 Hemoglobin (Bld) [Mass/Vol] 11.5 g/dL 13.0-16.5 [facility] Blood lymphocytes/100 leukoc ytesOrdered By: Dr. Waite on 02-06-2022 Lymphocytes/100 WBC (Bld) 23.5 % 19-41 [facility] Blood monocytes/100 leukocyt esOrdered By: Dr. Waite on 02-06-2022 Monocytes/100 WBC (Bld) 6.9 % 0-10 [facility] Blood platelet mean volumeOr dered By: Dr. Waite on 02-06-2022 Platelet mean volume (Bld) [Entitic vol] 9.8 fL 6.2-12.0 [facility] Determination of erythrocyte mean corpuscular volume (MCV)Ordered By: Dr. Waite on 02-06-2022 MCV (RBC) [Entitic vol] 86.0 fL 80-94 [facility] Hematocrit Auto (Bld) [Volum e fraction]Ordered By: Dr. Waite on 02-06-2022 Hematocrit (Bld) [Volume fraction] 34.4 % 40-54 [facility] Laboratory - Chemistry and C hemistry - challengeOrdered By: Dr. Waite on 02-06-2022 CO2 [Moles/Vol] 29.0 mmol/L 21.0-32.0 [facility] Urea nitrogen/Creatinine [Mass ratio] 55.6 mg/mg 10-20 [facility] Laboratory - Hematology and Cell countsOrdered By: Dr. Waite on 02-06-2022 Erythrocyte distribution width (RBC) [Entitic vol] 43.1 fL 35.1-43.9 [facility] Erythrocyte distribution width (RBC) [Ratio] 13.8 % 11.6-14.6 [facility] Immature granulocytes/100 WBC (Bld) 0.100 % 0.0-0.9 [facility] Comment on above: IG% - Immature Granu locytes (promyelocytes, myelocytes and metamyelocytes) > 1% indicates that a LEFT SHIFT is Present. MCH (RBC) [Entitic mass] 28.8 pg 27.0-32.0 [facility] Nucleated RBC/100 WBC (Bld) [Ratio] 0 % 0-5 [facility] MCHC Auto (RBC) [Mass/Vol]Or dered By: Dr. Waite on 02-06-2022 MCHC (RBC) [Mass/Vol] 33.4 g/dL 32-36 [facility] No Panel InformationOrdered By: Dr. Waite on 02-06-2022 Estimated GFR (MDRD) Amer 482 mL/min >60 [facility] Comment on above: GFR Calc Estimated GFR (MDRD) Non-Af Amer 399 mL/min >60 [facility] Comment on above: Non- GFR Calc 28.8 pg 27.0-32.0 [facility] 13.8 % 11.6-14.6 [facility] 43.1 fl 35.1-43.9 [facility] 0.100 % 0.0-0.9 [facility] 0 % 0-5 [facility] 399 mL/min >60 [facility] 482 mL/min >60 [facility] 55.6 RATIO 10-20 [facility] 29.0 mmol/L 21.0-32.0 [facility] Platelets bldOrdered By: Dr. Waite on 02-06-2022 Platelets (Bld) [#/Vol] 171 10*3/uL 150-450 [facility] Serum or plasma calcium jacinta urement (mass/volume)Ordered By: Dr. Waite on 02-06-2022 Calcium [Mass/Vol] 8.3 mg/dL 8.5-10.1 [facility] Serum or plasma creatinine m easurement (mass/volume)Ordered By: Dr. Waite on 02-06-2022 Creatinine [Mass/Vol] 0.27 mg/dL 0.70-1.30 [facility] Comment on above: The validity of the calculated GFR & GFRAA in patients over 70 years has not been determined. Clinical correlation is essential. Serum or plasma urea nitroge n measurement (mass/volume)Ordered By: Dr. Waite on 02-06-2022 Urea nitrogen [Mass/Vol] 15 mg/dL 7-18 [facility] Thin prep Papanicolaou smear with manual screeningOrdered By: Dr. Waite on 02-06-2022 Thin prep Papanicolaou smear with manual screening 6 5-15 [facility] Absolute lymphocyte countOrd ered By: Dr. Waite on 01-05-2022 Lymphocytes Auto (Unsp spec) [#/Vol] 2.32 10*3/uL 0.83-4.51 [facility] Basophil percentageOrdered B y: Dr. Waite on 01-05-2022 Basophil percentage 87 mg/dL 74-106 [facility] Basophil percentage 7.5 g/dL 6.4-8.2 [facility] Basophil percentage 0.20 mg/dL 0.20-1.00 [facility] Basophil percentage 139 mmol/L 136-145 [facility] Basophil percentage 4.2 mmol/L 3.5-5.1 [facility] Basophil percentage 102 mmol/L 98-107 [facility] Basophils (Bld) [#/Vol] 6.3 10*3/uL 4.4-11.0 [facility] Basophils (Bld) [#/Vol] 2.9 10*3/uL 2.0-7.7 [facility] Basophils/100 WBC (Bld) 0.5 % 0-1 [facility] Basophils/100 WBC (Bld) 45.8 % 47-70 [facility] Basophils/100 WBC (Bld) 8.0 % 0-5 [facility] Bilirubin [Mass/Vol] 0.20 mg/dL 0.20-1.00 [facility] Comment on above: For patients on eltr ombopag therapy, use of Dimension [place] TBIL is not recommended. Chloride [Moles/Vol] 102 mmol/L 98-107 [facility] Eosinophils/100 WBC (Bld) 8.0 % 0-5 [facility] Glucose [Mass/Vol] 87 mg/dL 74-106 [facility] Neutrophils (Bld) [#/Vol] 2.9 10*3/uL 2.0-7.7 [facility] Neutrophils/100 WBC (Bld) 45.8 % 47-70 [facility] Potassium [Moles/Vol] 4.2 mmol/L 3.5-5.1 [facility] Protein [Mass/Vol] 7.5 g/dL 6.4-8.2 [facility] Sodium [Moles/Vol] 139 mmol/L 136-145 [facility] WBC (Bld) [#/Vol] 6.3 10*3/uL 4.4-11.0 [facility] Blood erythrocytes count (nu mber/volume)Ordered By: Dr. Waite on 01-05-2022 RBC (Bld) [#/Vol] 4.05 10*6/uL 4.6-6.2 [facility] Blood hemoglobin measurement (mass/volume)Ordered By: Dr. Waite on 01-05-2022 Hemoglobin (Bld) [Mass/Vol] 11.6 g/dL 13.0-16.5 [facility] Blood lymphocytes/100 leukoc ytesOrdered By: Dr. Waite on 01-05-2022 Lymphocytes/100 WBC (Bld) 37.0 % 19-41 [facility] Blood monocytes/100 leukocyt esOrdered By: Dr. Waite on 01-05-2022 Monocytes/100 WBC (Bld) 8.5 % 0-10 [facility] Blood platelet mean volumeOr dered By: Dr. Waite on 01-05-2022 Platelet mean volume (Bld) [Entitic vol] 10.0 fL 6.2-12.0 [facility] Determination of erythrocyte mean corpuscular volume (MCV)Ordered By: Dr. Waite on 01-05-2022 MCV (RBC) [Entitic vol] 86.9 fL 80-94 [facility] Hematocrit Auto (Bld) [Volum e fraction]Ordered By: Dr. Waite on 01-05-2022 Hematocrit (Bld) [Volume fraction] 35.2 % 40-54 [facility] Laboratory - Chemistry and C hemistry - challengeOrdered By: Dr. Waite on 01-05-2022 ALP [Catalytic activity/Vol] 126 U/L 45-117 [facility] ALT [Catalytic activity/Vol] 20 U/L 16-61 [facility] CO2 [Moles/Vol] 31.0 mmol/L 21.0-32.0 [facility] Globulin (S) [Mass/Vol] 4.4 g/dL 2.2-4.2 [facility] Urea nitrogen/Creatinine [Mass ratio] 51.7 mg/mg 10-20 [facility] Laboratory - Hematology and Cell countsOrdered By: Dr. Waite on 01-05-2022 Erythrocyte distribution width (RBC) [Entitic vol] 44.0 fL 35.1-43.9 [facility] Erythrocyte distribution width (RBC) [Ratio] 13.8 % 11.6-14.6 [facility] Immature granulocytes/100 WBC (Bld) 0.200 % 0.0-0.9 [facility] Comment on above: IG% - Immature Granu locytes (promyelocytes, myelocytes and metamyelocytes) > 1% indicates that a LEFT SHIFT is Present. MCH (RBC) [Entitic mass] 28.6 pg 27.0-32.0 [facility] Nucleated RBC/100 WBC (Bld) [Ratio] 0 % 0-5 [facility] MCHC Auto (RBC) [Mass/Vol]Or dered By: Dr. Waite on 01-05-2022 MCHC (RBC) [Mass/Vol] 33.0 g/dL 32-36 [facility] No Panel InformationOrdered By: Dr. Waite on 01-05-2022 Estimated GFR (MDRD) Amer 480 mL/min >60 [facility] Comment on above: GFR Calc Estimated GFR (MDRD) Non-Af Amer 397 mL/min >60 [facility] Comment on above: Non- GFR Calc 28.6 pg 27.0-32.0 [facility] 13.8 % 11.6-14.6 [facility] 44.0 fl 35.1-43.9 [facility] 0.200 % 0.0-0.9 [facility] 0 % 0-5 [facility] 397 mL/min >60 [facility] 480 mL/min >60 [facility] 51.7 RATIO 10-20 [facility] 4.4 g/dL 2.2-4.2 [facility] 126 U/L 45-117 [facility] 20 U/L 16-61 [facility] 31.0 mmol/L 21.0-32.0 [facility] Platelets bldOrdered By: Dr. Waite on 01-05-2022 Platelets (Bld) [#/Vol] 165 10*3/uL 150-450 [facility] Serum or plasma albumin jacinta urement (mass/volume)Ordered By: Dr. Waite on 01-05-2022 Albumin [Mass/Vol] 3.1 g/dL 3.2-5.0 [facility] Serum or plasma albumin/glob ulin mass ratioOrdered By: Dr. Waite on 01-05-2022 Albumin/Globulin [Mass ratio] 0.7 {ratio} 0.9-2.4 [facility] Serum or plasma calcium jacinta urement (mass/volume)Ordered By: Dr. Waite on 01-05-2022 Calcium [Mass/Vol] 8.6 mg/dL 8.5-10.1 [facility] Serum or plasma creatinine m easurement (mass/volume)Ordered By: Dr. Waite on 01-05-2022 Creatinine [Mass/Vol] 0.27 mg/dL 0.70-1.30 [facility] Comment on above: The validity of the calculated GFR & GFRAA in patients over 70 years has not been determined. Clinical correlation is essential. Serum or plasma urea nitroge n measurement (mass/volume)Ordered By: Dr. Waite on 01-05-2022 Urea nitrogen [Mass/Vol] 14 mg/dL 7-18 [facility] Thin prep Papanicolaou smear with manual screeningOrdered By: Dr. Waite on 01-05-2022 Thin prep Papanicolaou smear with manual screening 13 U/L 15-37 [facility] Thin prep Papanicolaou smear with manual screening 6 5-15 [facility] Absolute lymphocyte countOrd ered By: Dr. Waite on 12-08-2021 Lymphocytes Auto (Unsp spec) [#/Vol] 2.18 10*3/uL 0.83-4.51 [facility] Basophil percentageOrdered B y: Dr. Waite on 12-08-2021 Basophil percentage 88 mg/dL 74-106 [facility] Basophil percentage 143 mmol/L 136-145 [facility] Basophil percentage 4.2 mmol/L 3.5-5.1 [facility] Basophil percentage 105 mmol/L 98-107 [facility] Basophils (Bld) [#/Vol] 6.4 10*3/uL 4.4-11.0 [facility] Basophils (Bld) [#/Vol] 3.1 10*3/uL 2.0-7.7 [facility] Basophils/100 WBC (Bld) 0.3 % 0-1 [facility] Basophils/100 WBC (Bld) 48.5 % 47-70 [facility] Basophils/100 WBC (Bld) 8.9 % 0-5 [facility] Chloride [Moles/Vol] 105 mmol/L 98-107 [facility] Eosinophils/100 WBC (Bld) 8.9 % 0-5 [facility] Glucose [Mass/Vol] 88 mg/dL 74-106 [facility] Neutrophils (Bld) [#/Vol] 3.1 10*3/uL 2.0-7.7 [facility] Neutrophils/100 WBC (Bld) 48.5 % 47-70 [facility] Potassium [Moles/Vol] 4.2 mmol/L 3.5-5.1 [facility] Sodium [Moles/Vol] 143 mmol/L 136-145 [facility] WBC (Bld) [#/Vol] 6.4 10*3/uL 4.4-11.0 [facility] Blood erythrocytes count (nu mber/volume)Ordered By: Dr. Waite on 12-08-2021 RBC (Bld) [#/Vol] 3.54 10*6/uL 4.6-6.2 [facility] Blood hemoglobin measurement (mass/volume)Ordered By: Dr. Waite on 12-08-2021 Hemoglobin (Bld) [Mass/Vol] 10.0 g/dL 13.0-16.5 [facility] Blood lymphocytes/100 leukoc ytesOrdered By: Dr. Waite on 12-08-2021 Lymphocytes/100 WBC (Bld) 33.9 % 19-41 [facility] Blood monocytes/100 leukocyt esOrdered By: Dr. Waite on 12-08-2021 Monocytes/100 WBC (Bld) 7.9 % 0-10 [facility] Blood platelet mean volumeOr dered By: Dr. Waite on 12-08-2021 Platelet mean volume (Bld) [Entitic vol] 9.9 fL 6.2-12.0 [facility] Determination of erythrocyte mean corpuscular volume (MCV)Ordered By: Dr. Waite on 12-08-2021 MCV (RBC) [Entitic vol] 89.5 fL 80-94 [facility] Hematocrit Auto (Bld) [Volum e fraction]Ordered By: Dr. Waite on 12-08-2021 Hematocrit (Bld) [Volume fraction] 31.7 % 40-54 [facility] Laboratory - Chemistry and C hemistry - challengeOrdered By: Dr. Waite on 12-08-2021 CO2 [Moles/Vol] 29.0 mmol/L 21.0-32.0 [facility] Urea nitrogen/Creatinine [Mass ratio] 48.8 mg/mg 10-20 [facility] Laboratory - Hematology and Cell countsOrdered By: Dr. Waite on 12-08-2021 Erythrocyte distribution width (RBC) [Entitic vol] 44.7 fL 35.1-43.9 [facility] Erythrocyte distribution width (RBC) [Ratio] 13.6 % 11.6-14.6 [facility] Immature granulocytes/100 WBC (Bld) 0.500 % 0.0-0.9 [facility] Comment on above: IG% - Immature Granu locytes (promyelocytes, myelocytes and metamyelocytes) > 1% indicates that a LEFT SHIFT is Present. MCH (RBC) [Entitic mass] 28.2 pg 27.0-32.0 [facility] Nucleated RBC/100 WBC (Bld) [Ratio] 0 % 0-5 [facility] MCHC Auto (RBC) [Mass/Vol]Or dered By: Dr. Waite on 12-08-2021 MCHC (RBC) [Mass/Vol] 31.5 g/dL 32-36 [facility] No Panel InformationOrdered By: Dr. Waite on 12-08-2021 Estimated GFR (MDRD) Amer 450 mL/min >60 [facility] Comment on above: GFR Calc Estimated GFR (MDRD) Non-Af Amer 372 mL/min >60 [facility] Comment on above: Non- GFR Calc 28.2 pg 27.0-32.0 [facility] 13.6 % 11.6-14.6 [facility] 44.7 fl 35.1-43.9 [facility] 0.500 % 0.0-0.9 [facility] 0 % 0-5 [facility] 372 mL/min >60 [facility] 450 mL/min >60 [facility] 48.8 RATIO 10-20 [facility] 29.0 mmol/L 21.0-32.0 [facility] Platelets bldOrdered By: Dr. Waite on 12-08-2021 Platelets (Bld) [#/Vol] 239 10*3/uL 150-450 [facility] Serum or plasma calcium jacinta urement (mass/volume)Ordered By: Dr. Waite on 12-08-2021 Calcium [Mass/Vol] 8.1 mg/dL 8.5-10.1 [facility] Serum or plasma creatinine m easurement (mass/volume)Ordered By: Dr. Waite on 12-08-2021 Creatinine [Mass/Vol] 0.29 mg/dL 0.70-1.30 [facility] Comment on above: The validity of the calculated GFR & GFRAA in patients over 70 years has not been determined. Clinical correlation is essential. Serum or plasma urea nitroge n measurement (mass/volume)Ordered By: Dr. Waite on 12-08-2021 Urea nitrogen [Mass/Vol] 14 mg/dL 7-18 [facility] Thin prep Papanicolaou smear with manual screeningOrdered By: Dr. Waite on 12-08-2021 Thin prep Papanicolaou smear with manual screening 9 5-15 [facility] Absolute lymphocyte countOrd ered By: Dr. Dillard on 12-05-2021 Lymphocytes Auto (Unsp spec) [#/Vol] 1.83 10*3/uL 0.83-4.51 [facility] Basophil percentageOrdered B y: Dr. Dillard on 12-05-2021 Basophil percentage 105 mg/dL 74-106 [facility] Basophil percentage 7.8 g/dL 6.4-8.2 [facility] Basophil percentage 0.20 mg/dL 0.20-1.00 [facility] Basophil percentage 140 mmol/L 136-145 [facility] Basophil percentage 3.8 mmol/L 3.5-5.1 [facility] Basophil percentage 107 mmol/L 98-107 [facility] Basophils (Bld) [#/Vol] 7.0 10*3/uL 4.4-11.0 [facility] Basophils (Bld) [#/Vol] 3.8 10*3/uL 2.0-7.7 [facility] Basophils/100 WBC (Bld) 0.3 % 0-1 [facility] Basophils/100 WBC (Bld) 54.8 % 47-70 [facility] Basophils/100 WBC (Bld) 9.3 % 0-5 [facility] Bilirubin [Mass/Vol] 0.20 mg/dL 0.20-1.00 [facility] Comment on above: For patients on eltr ombopag therapy, use of Dimension [place] TBIL is not recommended. Chloride [Moles/Vol] 107 mmol/L 98-107 [facility] Eosinophils/100 WBC (Bld) 9.3 % 0-5 [facility] Glucose [Mass/Vol] 105 mg/dL 74-106 [facility] Comment on above: Fasting Glucose resu lt from 100 to 125 mg/dL suggests IMPAIRED HOMEOSTASIS per A.D.A. criteria. Neutrophils (Bld) [#/Vol] 3.8 10*3/uL 2.0-7.7 [facility] Neutrophils/100 WBC (Bld) 54.8 % 47-70 [facility] Potassium [Moles/Vol] 3.8 mmol/L 3.5-5.1 [facility] Protein [Mass/Vol] 7.8 g/dL 6.4-8.2 [facility] Sodium [Moles/Vol] 140 mmol/L 136-145 [facility] WBC (Bld) [#/Vol] 7.0 10*3/uL 4.4-11.0 [facility] Blood erythrocytes count (nu mber/volume)Ordered By: Dr. Dillard on 12-05-2021 RBC (Bld) [#/Vol] 3.84 10*6/uL 4.6-6.2 [facility] Blood hemoglobin measurement (mass/volume)Ordered By: Dr. Dillard on 12-05-2021 Hemoglobin (Bld) [Mass/Vol] 10.7 g/dL 13.0-16.5 [facility] Blood lymphocytes/100 leukoc ytesOrdered By: Dr. Dillard on 12-05-2021 Lymphocytes/100 WBC (Bld) 26.3 % 19-41 [facility] Blood monocytes/100 leukocyt esOrdered By: Dr. Dillard on 12-05-2021 Monocytes/100 WBC (Bld) 8.9 % 0-10 [facility] Blood platelet mean volumeOr dered By: Dr. Dillard on 12-05-2021 Platelet mean volume (Bld) [Entitic vol] 10.0 fL 6.2-12.0 [facility] Determination of erythrocyte mean corpuscular volume (MCV)Ordered By: Dr. Dillard on 12-05-2021 MCV (RBC) [Entitic vol] 89.6 fL 80-94 [facility] Hematocrit Auto (Bld) [Volum e fraction]Ordered By: Dr. Dillard on 12-05-2021 Hematocrit (Bld) [Volume fraction] 34.4 % 40-54 [facility] Laboratory - Chemistry and C hemistry - challengeOrdered By: Dr. Dillard on 12-05-2021 ALP [Catalytic activity/Vol] 134 U/L 45-117 [facility] ALT [Catalytic activity/Vol] 24 U/L 16-61 [facility] CO2 [Moles/Vol] 27.0 mmol/L 21.0-32.0 [facility] Globulin (S) [Mass/Vol] 5.0 g/dL 2.2-4.2 [facility] Urea nitrogen/Creatinine [Mass ratio] 47.1 mg/mg 10-20 [facility] Laboratory - Hematology and Cell countsOrdered By: Dr. Dillard on 12-05-2021 Erythrocyte distribution width (RBC) [Entitic vol] 45.1 fL 35.1-43.9 [facility] Erythrocyte distribution width (RBC) [Ratio] 13.8 % 11.6-14.6 [facility] Immature granulocytes/100 WBC (Bld) 0.400 % 0.0-0.9 [facility] Comment on above: IG% - Immature Granu locytes (promyelocytes, myelocytes and metamyelocytes) > 1% indicates that a LEFT SHIFT is Present. MCH (RBC) [Entitic mass] 27.9 pg 27.0-32.0 [facility] Nucleated RBC/100 WBC (Bld) [Ratio] 0 % 0-5 [facility] MCHC Auto (RBC) [Mass/Vol]Or dered By: Dr. Dillard on 12-05-2021 MCHC (RBC) [Mass/Vol] 31.1 g/dL 32-36 [facility] Comment on above: Delta: 32.8 on 12/04 No Panel InformationOrdered By: Dr. Dillard on 12-05-2021 Estimated Creatinine Clearance Calc 269.76 ml/min [facility] Estimated GFR (MDRD) Amer 516 mL/min >60 [facility] Comment on above: GFR Calc Estimated GFR (MDRD) Non-Af Amer 426 mL/min >60 [facility] Comment on above: Non- GFR Calc 27.9 pg 27.0-32.0 [facility] 13.8 % 11.6-14.6 [facility] 45.1 fl 35.1-43.9 [facility] 0.400 % 0.0-0.9 [facility] 0 % 0-5 [facility] 426 mL/min >60 [facility] 516 mL/min >60 [facility] 269.76 ml/min [facility] 47.1 RATIO 10-20 [facility] 5.0 g/dL 2.2-4.2 [facility] 134 U/L 45-117 [facility] 24 U/L 16-61 [facility] 27.0 mmol/L 21.0-32.0 [facility] Platelets bldOrdered By: Dr. Dillard on 12-05-2021 Platelets (Bld) [#/Vol] 181 10*3/uL 150-450 [facility] Serum or plasma albumin jacinta urement (mass/volume)Ordered By: Dr. Dillard on 12-05-2021 Albumin [Mass/Vol] 2.8 g/dL 3.2-5.0 [facility] Serum or plasma albumin/glob ulin mass ratioOrdered By: Dr. Dillard on 12-05-2021 Albumin/Globulin [Mass ratio] 0.6 {ratio} 0.9-2.4 [facility] Serum or plasma calcium jacinta urement (mass/volume)Ordered By: Dr. Dillard on 12-05-2021 Calcium [Mass/Vol] 8.7 mg/dL 8.5-10.1 [facility] Serum or plasma creatinine m easurement (mass/volume)Ordered By: Dr. Dillard on 12-05-2021 Creatinine [Mass/Vol] 0.26 mg/dL 0.70-1.30 [facility] Comment on above: The validity of the calculated GFR & GFRAA in patients over 70 years has not been determined. Clinical correlation is essential. Serum or plasma urea nitroge n measurement (mass/volume)Ordered By: Dr. Dillard on 12-05-2021 Urea nitrogen [Mass/Vol] 12 mg/dL 7-18 [facility] Thin prep Papanicolaou smear with manual screeningOrdered By: Dr. Dillard on 12-05-2021 Thin prep Papanicolaou smear with manual screening 13 U/L 15-37 [facility] Thin prep Papanicolaou smear with manual screening 6 5-15 [facility] Bacteria identified Respirat ory culture Nom (Unsp spec)Ordered By: Dominic Méndez on 12-02-2021 Respiratory Culture Pseudomonas aeroginosa [facility] Microbial respiratory culture [facility] Laboratory - Chemistry and C hemistry - challengeOrdered By: Dr. Dillard on 12-02-2021 Magnesium [Mass/Vol] 2.2 mg/dL 1.6-2.6 [facility] No Panel InformationOrdered By: Dr. Dillard on 12-02-2021 2.2 mg/dL 1.6-2.6 [facility] Assessment of wrist artery p atency prior to arterial punctureOrdered By: Dr. Dillard on 12-01-2021 Arterial patency Wrist artery --pre arterial puncture Negative [facility] Base excessOrdered By: Dr. Roxi britton on 12-01-2021 Base excess Calc (BldV) [Moles/Vol] -3 mmol/L -2-2 [facility] Basophil percentageOrdered B y: Dr. Dillard on 12-01-2021 Basophil percentage 1.2 mmol/L 0.4-2.0 [facility] Lactate [Moles/Vol] 1.2 mmol/L 0.4-2.0 [facility] Basophil percentage 21.5 mmol/L 22-26 [facility] Basophils/100 WBC (Bld) 94 % 95-99 [facility] CO2 (BldA) [Partial pressure ]Ordered By: Dr. Dillard on 12-01-2021 CO2 (Bld) [Partial pressure] 31.2 mm[Hg] 35-45 [facility] Gram stain for investigation of transfusion reactionOrdered By: Dominic Méndez on 12-01-2021 Microscopic observation Gram stain Nom (Unsp spec) [facility] Laboratory - Microbiology an d Antimicrobial susceptibilityOrdered By: Dr. Moreira on 12-01-2021 Respiratory pathogens DNA and RNA 12b panel YAYO+probe (Unsp spec) [facility] No Panel InformationOrdered By: Dr. Dillard on 12-01-2021 Blood Gas Liter Flow 3.0 /min [facility] Blood Gas Sample Site R [facility] Blood Gas Specimen Type ART [facility] Blood Gas Total CO2 22 mmol/L [facility] Blood Gas Vent Mode home vent [facility] Oxygen Delivery Device Adult Vent [facility] R [facility] home vent [facility] Adult Vent [facility] 3.0 /min [facility] 22 mmol/L [facility] Oxygen (BldA) [Partial press ure]Ordered By: Dr. Dillard on 12-01-2021 Oxygen (Bld) [Partial pressure] 65 mmHG 75-100 [facility] pH measurementOrdered By: Dr Roxanne Dillard on 12-01-2021 pH (Unsp spec) 7.45 [pH] 7.35-7.45 [facility] Absolute lymphocyte counton 11-30-2021 Lymphocytes Auto (Unsp spec) [#/Vol] 1.55 10*3/uL 0.83-4.51 [facility] Work Phone: Basophil percentageon 2021 Basophils/100 WBC (Bld) 0.3 % 0-1 [facility] Work Phone: [phone] Chloride [Moles/Vol] 104 mmol/L 98-107 [facility]: [phone] Eosinophils/100 WBC (Bld) 5.1 % 0-5 [facility] Work Phone: [phone] Glucose [Mass/Vol] 84 mg/dL 74-106 [facility] Work Phone: [phone] Neutrophils (Bld) [#/Vol] 3.6 10*3/uL 2.0-7.7 [facility] Work Phone: [phone] Neutrophils/100 WBC (Bld) 58.6 % 47-70 [facility] Work Phone: [phone] Potassium [Moles/Vol] 3.7 mmol/L 3.5-5.1 [facility]: [phone] Sodium [Moles/Vol] 140 mmol/L 136-145 [facility]: [phone] WBC (Bld) [#/Vol] 6.1 10*3/uL 4.4-11.0 [facility] Work Phone: Blood erythrocytes count (nu mber/volume)on 11-30-2021 RBC (Bld) [#/Vol] 4.31 10*6/uL 4.6-6.2 [facility]: Blood hemoglobin measurement (mass/volume)on 11-30-2021 Hemoglobin (Bld) [Mass/Vol] 12.0 g/dL 13.0-16.5 [facility] Work Phone: [phone] Blood lymphocytes/100 leukoc yteson 11-30-2021 Lymphocytes/100 WBC (Bld) 25.6 % 19-41 [facility] Work Phone: [phone] Blood monocytes/100 leukocyt eson 11-30-2021 Monocytes/100 WBC (Bld) 10.2 % 0-10 [facility] Work Phone: Blood platelet mean volumeon 11-30-2021 Platelet mean volume (Bld) [Entitic vol] 9.8 fL 6.2-12.0 [facility] Work Phone: Determination of erythrocyte mean corpuscular volume (MCV)on 11-30-2021 MCV (RBC) [Entitic vol] 86.8 fL 80-94 [facility] Work Phone: Hematocrit Auto (Bld) [Volum e fraction]on 11-30-2021 Hematocrit (Bld) [Volume fraction] 37.4 % 40-54 [facility] Work Phone: Laboratory - Chemistry and C hemistry - challengeon 11-30-2021 CO2 [Moles/Vol] 28.0 mmol/L 21.0-32.0 [facility] Work Phone: Urea nitrogen/Creatinine [Mass ratio] 35.0 mg/mg 10-20 [facility] Work Phone: Laboratory - Hematology and Cell countson 11-30-2021 Erythrocyte distribution width (RBC) [Entitic vol] 41.7 fL 35.1-43.9 [facility] Work Phone: Erythrocyte distribution width (RBC) [Ratio] 13.2 % 11.6-14.6 [facility] Work Phone: Immature granulocytes/100 WBC (Bld) 0.200 % 0.0-0.9 [facility] [facility] Work Phone: Comment on above: IG% - Immature Granu locytes (promyelocytes, myelocytes and metamyelocytes) > 1% indicates that a LEFT SHIFT is Present. MCH (RBC) [Entitic mass] 27.8 pg 27.0-32.0 [facility] Work Phone: Nucleated RBC/100 WBC (Bld) [Ratio] 0 % 0-5 [facility] Work Phone: MCHC Auto (RBC) [Mass/Vol]on 11-30-2021 MCHC (RBC) [Mass/Vol] 32.1 g/dL 32-36 [facility] Work [facility]: No Panel Informationon 11-30 Estimated Creatinine Clearance Calc 357.48 ml/min [facility] Work Phone: Estimated GFR (MDRD) Amer 406 mL/min >60 [facility] Work Phone: Comment on above: GFR Calc Estimated GFR (MDRD) Non-Af Amer 335 mL/min >60 [facility] Work Phone: Comment on above: Non- GFR Calc Platelets bldon 11-30-2021 Platelets (Bld) [#/Vol] 166 10*3/uL 150-450 [facility] Work Phone: Serum or plasma calcium jacinta urement (mass/volume)on 11-30-2021 Calcium [Mass/Vol] 8.7 mg/dL 8.5-10.1 [facility] Work Phone: Serum or plasma creatinine m easurement (mass/volume)on 11-30-2021 Creatinine [Mass/Vol] 0.31 mg/dL 0.70-1.30 [facility] Work Phone: Comment on above: The validity of the calculated GFR & GFRAA in patients over 70 years has not been determined. Clinical correlation is essential. Serum or plasma urea nitroge n measurement (mass/volume)on 11-30-2021 Urea nitrogen [Mass/Vol] 11 mg/dL 7-18 [facility] Work Phone: Thin prep Papanicolaou smear with manual screeningon 11-30-2021 Thin prep Papanicolaou smear with manual screening 8 5-15 [facility] Work Phone: Absolute lymphocyte counton 11-03-2021 Lymphocytes Auto (Unsp spec) [#/Vol] 2.54 10*3/uL 0.83-4.51 [facility] Work Phone: Basophil percentageon 2021 Basophils/100 WBC (Bld) 0.5 % 0-1 [facility] Work Phone: Chloride [Moles/Vol] 102 mmol/L 98-107 [facility] Work [facility]: [phone] Eosinophils/100 WBC (Bld) 4.1 % 0-5 [facility] Work Phone: [phone] Glucose [Mass/Vol] 98 mg/dL 74-106 [facility] Work Phone: Neutrophils (Bld) [#/Vol] 3.2 10*3/uL 2.0-7.7 [facility] Work Phone: [phone] Neutrophils/100 WBC (Bld) 47.6 % 47-70 [facility] Work Phone: [phone] Potassium [Moles/Vol] 3.6 mmol/L 3.5-5.1 [facility] Work Phone: [phone] Sodium [Moles/Vol] 138 mmol/L 136-145 [facility] Work Phone: WBC (Bld) [#/Vol] 6.6 10*3/uL 4.4-11.0 [facility] Work Phone: Blood erythrocytes count (nu mber/volume)on 11-03-2021 RBC (Bld) [#/Vol] 4.09 10*6/uL 4.6-6.2 [facility]: Blood hemoglobin measurement (mass/volume)on 11-03-2021 Hemoglobin (Bld) [Mass/Vol] 11.9 g/dL 13.0-16.5 [facility] Work Phone: [phone] Blood lymphocytes/100 leukoc yteson 11-03-2021 Lymphocytes/100 WBC (Bld) 38.4 % 19-41 [facility] Work Phone: [phone] Blood monocytes/100 leukocyt eson 11-03-2021 Monocytes/100 WBC (Bld) 9.2 % 0-10 [facility] Work Phone: Blood platelet mean volumeon 11-03-2021 Platelet mean volume (Bld) [Entitic vol] 10.1 fL 6.2-12.0 [facility] Work Phone: Determination of erythrocyte mean corpuscular volume (MCV)on 11-03-2021 MCV (RBC) [Entitic vol] 88.3 fL 80-94 [facility] Work Phone: Hematocrit Auto (Bld) [Volum e fraction]on 11-03-2021 Hematocrit (Bld) [Volume fraction] 36.1 % 40-54 [facility] Work Phone: Laboratory - Chemistry and C hemistry - challengeon 11-03-2021 CO2 [Moles/Vol] 27.0 mmol/L 21.0-32.0 [facility] Work Phone: Urea nitrogen/Creatinine [Mass ratio] 47.9 mg/mg 10-20 [facility] Work Phone: Laboratory - Hematology and Cell countson 11-03-2021 Erythrocyte distribution width (RBC) [Entitic vol] 44.0 fL 35.1-43.9 [facility] Work Phone: Erythrocyte distribution width (RBC) [Ratio] 13.5 % 11.6-14.6 [facility] Work Phone: Immature granulocytes/100 WBC (Bld) 0.200 % 0.0-0.9 [facility] Work Phone: Comment on above: IG% - Immature Granu locytes (promyelocytes, myelocytes and metamyelocytes) > 1% indicates that a LEFT SHIFT is Present. MCH (RBC) [Entitic mass] 29.1 pg 27.0-32.0 [facility] Work Phone: Nucleated RBC/100 WBC (Bld) [Ratio] 0 % 0-5 [facility] Work Phone: MCHC Auto (RBC) [Mass/Vol]on 11-03-2021 MCHC (RBC) [Mass/Vol] 33.0 g/dL 32-36 [facility] Work Phone: No Panel Informationon 11-03 Estimated GFR (MDRD) Amer 352 mL/min >60 [facility] Work Phone: Comment on above: GFR Calc Estimated GFR (MDRD) Non-Af Amer 291 mL/min >60 [facility] Work Phone: Comment on above: Non- GFR Calc Platelets bldon 11-03-2021 Platelets (Bld) [#/Vol] 215 10*3/uL 150-450 [facility] Work Phone: Serum or plasma calcium jacinta urement (mass/volume)on 11-03-2021 Calcium [Mass/Vol] 8.9 mg/dL 8.5-10.1 [facility] Work Phone: Serum or plasma creatinine m easurement (mass/volume)on 11-03-2021 Creatinine [Mass/Vol] 0.36 mg/dL 0.70-1.30 [facility] Work Phone: Comment on above: The validity of the calculated GFR & GFRAA in patients over 70 years has not been determined. Clinical correlation is essential. Serum or plasma urea nitroge n measurement (mass/volume)on 11-03-2021 Urea nitrogen [Mass/Vol] 17 mg/dL 7-18 [facility] Work Phone: Thin prep Papanicolaou smear with manual screeningon 11-03-2021 Thin prep Papanicolaou smear with manual screening 9 5-15 [facility] Work Phone: Absolute lymphocyte counton 09-10-2021 Lymphocytes Auto (Unsp spec) [#/Vol] 2.63 10*3/uL 0.83-4.51 [facility] Work Phone: Basophil percentageon 2021 Basophils/100 WBC (Bld) 0.3 % 0-1 [facility] Work Phone: Chloride [Moles/Vol] 102 mmol/L 98-107 [facility] Work Phone: Eosinophils/100 WBC (Bld) 3.9 % 0-5 [facility] Work Phone: Glucose [Mass/Vol] 80 mg/dL 74-106 [facility] Work Phone: Neutrophils (Bld) [#/Vol] 3.5 10*3/uL 2.0-7.7 [facility] Work Phone: Neutrophils/100 WBC (Bld) 48.5 % 47-70 [facility] Work Phone: Potassium [Moles/Vol] 4.1 mmol/L 3.5-5.1 [facility] Work Phone: Sodium [Moles/Vol] 138 mmol/L 136-145 [facility] Work Phone: WBC (Bld) [#/Vol] 7.1 10*3/uL 4.4-11.0 [facility] Work Phone: Blood erythrocytes count (nu mber/volume)on 09-10-2021 RBC (Bld) [#/Vol] 4.00 10*6/uL 4.6-6.2 [facility] Work Phone: Blood hemoglobin measurement (mass/volume)on 09-10-2021 Hemoglobin (Bld) [Mass/Vol] 11.3 g/dL 13.0-16.5 [facility] Work Phone: Blood lymphocytes/100 leukoc yteson 09-10-2021 Lymphocytes/100 WBC (Bld) 36.9 % 19-41 [facility] Work Phone: Blood monocytes/100 leukocyt eson 09-10-2021 Monocytes/100 WBC (Bld) 10.3 % 0-10 [facility] Work Phone: Blood platelet mean volumeon 09-10-2021 Platelet mean volume (Bld) [Entitic vol] 10.7 fL 6.2-12.0 [facility] Work Phone: Determination of erythrocyte mean corpuscular volume (MCV)on 09-10-2021 MCV (RBC) [Entitic vol] 89.5 fL 80-94 [facility] Work Phone: Hematocrit Auto (Bld) [Volum e fraction]on 09-10-2021 Hematocrit (Bld) [Volume fraction] 35.8 % 40-54 [facility] Work Phone: Iron measurement (mass/mass) on 09-10-2021 Iron (Unsp spec) [Mass/Mass] 59 ug/dL 65-175 [facility] Work Phone: Laboratory - Chemistry and C hemistry - challengeon 09-10-2021 CO2 [Moles/Vol] 30.0 mmol/L 21.0-32.0 [facility] Work Phone: Urea nitrogen/Creatinine [Mass ratio] 71.9 mg/mg 10-20 [facility] Work Phone: Laboratory - Hematology and Cell countson 09-10-2021 Erythrocyte distribution width (RBC) [Entitic vol] 47.7 fL 35.1-43.9 [facility] Work Phone: Erythrocyte distribution width (RBC) [Ratio] 14.6 % 11.6-14.6 [facility] Work Phone: Immature granulocytes/100 WBC (Bld) 0.100 % 0.0-0.9 [facility] Work Phone: Comment on above: IG% - Immature Granu locytes (promyelocytes, myelocytes and metamyelocytes) > 1% indicates that a LEFT SHIFT is Present. MCH (RBC) [Entitic mass] 28.3 pg 27.0-32.0 [facility] Work Phone: Nucleated RBC/100 WBC (Bld) [Ratio] 0 % 0-5 [facility] Work Phone: MCHC Auto (RBC) [Mass/Vol]on 09-10-2021 MCHC (RBC) [Mass/Vol] 31.6 g/dL 32-36 [facility] Work Phone: No Panel Informationon 09-10 Estimated GFR (MDRD) Amer 467 mL/min >60 [facility] Work Phone: Comment on above: GFR Calc Estimated GFR (MDRD) Non-Af Amer 386 mL/min >60 [facility] Work Phone: Comment on above: Non- GFR Calc Platelets bldon 09-10-2021 Platelets (Bld) [#/Vol] 177 10*3/uL 150-450 [facility] Work Phone: Serum or plasma calcium jacinta urement (mass/volume)on 09-10-2021 Calcium [Mass/Vol] 9.0 mg/dL 8.5-10.1 [facility] Work Phone: Serum or plasma creatinine m easurement (mass/volume)on 09-10-2021 Creatinine [Mass/Vol] 0.28 mg/dL 0.70-1.30 [facility] Work Phone: Comment on above: The validity of the calculated GFR & GFRAA in patients over 70 years has not been determined. Clinical correlation is essential. Serum or plasma urea nitroge n measurement (mass/volume)on 09-10-2021 Urea nitrogen [Mass/Vol] 20 mg/dL 7-18 [facility] Work Phone: Thin prep Papanicolaou smear with manual screeningon 09-10-2021 Thin prep Papanicolaou smear with manual screening 6 5-15 [facility] Work Phone: Absolute lymphocyte counton 08-12-2021 Lymphocytes Auto (Unsp spec) [#/Vol] 1.84 10*3/uL 0.83-4.51 [facility] Work Phone: Basophil percentageon 2021 Basophils/100 WBC (Bld) 0.2 % 0-1 [facility] Work Phone: Chloride [Moles/Vol] 103 mmol/L 98-107 [facility] Work Phone: Eosinophils/100 WBC (Bld) 4.6 % 0-5 [facility] Work Phone: Glucose [Mass/Vol] 90 mg/dL 74-106 [facility] Work Phone: Neutrophils (Bld) [#/Vol] 2.4 10*3/uL 2.0-7.7 [facility] Work Phone: Neutrophils/100 WBC (Bld) 48.8 % 47-70 [facility] Work Phone: Potassium [Moles/Vol] 3.8 mmol/L 3.5-5.1 [facility] Work Phone: Sodium [Moles/Vol] 139 mmol/L 136-145 [facility]: WBC (Bld) [#/Vol] 5.0 10*3/uL 4.4-11.0 [facility] Work Phone: Blood erythrocytes count (nu mber/volume)on 08-12-2021 RBC (Bld) [#/Vol] 4.09 10*6/uL 4.6-6.2 [facility]: Blood hemoglobin measurement (mass/volume)on 08-12-2021 Hemoglobin (Bld) [Mass/Vol] 11.5 g/dL 13.0-16.5 [facility] Work Phone: Blood lymphocytes/100 leukoc yteson 08-12-2021 Lymphocytes/100 WBC (Bld) 36.8 % 19-41 [facility] Work Phone: Blood monocytes/100 leukocyt eson 08-12-2021 Monocytes/100 WBC (Bld) 9.4 % 0-10 [facility] Work Phone: Blood platelet mean volumeon 08-12-2021 Platelet mean volume (Bld) [Entitic vol] 11.0 fL 6.2-12.0 [facility] Work Phone: Determination of erythrocyte mean corpuscular volume (MCV)on 08-12-2021 MCV (RBC) [Entitic vol] 87.0 fL 80-94 [facility] Work Phone: Hematocrit Auto (Bld) [Volum e fraction]on 08-12-2021 Hematocrit (Bld) [Volume fraction] 35.6 % 40-54 [facility] Work Phone: Laboratory - Chemistry and C hemistry - challengeon 08-12-2021 CO2 [Moles/Vol] 29.0 mmol/L 21.0-32.0 [facility] Work Phone: Urea nitrogen/Creatinine [Mass ratio] 50.8 mg/mg 10-20 [facility] Work Phone: Laboratory - Hematology and Cell countson 08-12-2021 Erythrocyte distribution width (RBC) [Entitic vol] 44.2 fL 35.1-43.9 [facility] Work Phone: Erythrocyte distribution width (RBC) [Ratio] 14.1 % 11.6-14.6 [facility] Work Phone: Immature granulocytes/100 WBC (Bld) 0.200 % 0.0-0.9 [facility] Work Phone: Comment on above: IG% - Immature Granu locytes (promyelocytes, myelocytes and metamyelocytes) > 1% indicates that a LEFT SHIFT is Present. MCH (RBC) [Entitic mass] 28.1 pg 27.0-32.0 [facility] Work Phone: Nucleated RBC/100 WBC (Bld) [Ratio] 0 % 0-5 [facility] Work Phone: MCHC Auto (RBC) [Mass/Vol]on 08-12-2021 MCHC (RBC) [Mass/Vol] 32.3 g/dL 32-36 [facility] Work Phone: No Panel Informationon 08-12 Estimated GFR (MDRD) Amer 405 mL/min >60 [facility] Work Phone: Comment on above: GFR Calc Estimated GFR (MDRD) Non-Af Amer 334 mL/min >60 [facility] Work Phone: Comment on above: Non- GFR Calc Platelets bldon 08-12-2021 Platelets (Bld) [#/Vol] 151 10*3/uL 150-450 [facility] Work Phone: Serum or plasma calcium jacinta urement (mass/volume)on 08-12-2021 Calcium [Mass/Vol] 9.0 mg/dL 8.5-10.1 [facility] Work Phone: Serum or plasma creatinine m easurement (mass/volume)on 08-12-2021 Creatinine [Mass/Vol] 0.32 mg/dL 0.70-1.30 [facility] Work Phone: Comment on above: The validity of the calculated GFR & GFRAA in patients over 70 years has not been determined. Clinical correlation is essential. Serum or plasma urea nitroge n measurement (mass/volume)on 08-12-2021 Urea nitrogen [Mass/Vol] 16 mg/dL 7-18 [facility] Work Phone: Thin prep Papanicolaou smear with manual screeningon 08-12-2021 Thin prep Papanicolaou smear with manual screening 7 5-15 [facility] Work Phone: Absolute lymphocyte counton 07-11-2021 Lymphocytes Auto (Unsp spec) [#/Vol] 2.56 10*3/uL 0.83-4.51 [facility] Work Phone: Basophil percentageon 2021 Basophils/100 WBC (Bld) 0.4 % 0-1 [facility] Work Phone: Chloride [Moles/Vol] 105 mmol/L 98-107 [facility] Work Phone: Eosinophils/100 WBC (Bld) 5.9 % 0-5 [facility] Work Phone: Glucose [Mass/Vol] 85 mg/dL 74-106 [facility] Work Phone: Neutrophils (Bld) [#/Vol] 2.1 10*3/uL 2.0-7.7 [facility] Work Phone: Neutrophils/100 WBC (Bld) 38.0 % 47-70 [facility] Work Phone: Potassium [Moles/Vol] 3.7 mmol/L 3.5-5.1 [facility] Work Phone: Sodium [Moles/Vol] 139 mmol/L 136-145 [facility] Work Phone: WBC (Bld) [#/Vol] 5.6 10*3/uL 4.4-11.0 [facility] Work Phone: Blood erythrocytes count (nu mber/volume)on 07-11-2021 RBC (Bld) [#/Vol] 3.83 10*6/uL 4.6-6.2 [facility] Work [facility]: Blood hemoglobin measurement (mass/volume)on 07-11-2021 Hemoglobin (Bld) [Mass/Vol] 10.8 g/dL 13.0-16.5 [facility] Work Phone: Blood lymphocytes/100 leukoc yteson 07-11-2021 Lymphocytes/100 WBC (Bld) 46.0 % 19-41 [facility] Work Phone: Blood monocytes/100 leukocyt eson 07-11-2021 Monocytes/100 WBC (Bld) 9.7 % 0-10 [facility] Work Phone: Blood platelet mean volumeon 07-11-2021 Platelet mean volume (Bld) [Entitic vol] 10.9 fL 6.2-12.0 [facility] Work Phone: Determination of erythrocyte mean corpuscular volume (MCV)on 07-11-2021 MCV (RBC) [Entitic vol] 88.5 fL 80-94 [facility] Work Phone: Hematocrit Auto (Bld) [Volum e fraction]on 07-11-2021 Hematocrit (Bld) [Volume fraction] 33.9 % 40-54 [facility] Work Phone: Laboratory - Chemistry and C hemistry - challengeon 07-11-2021 CO2 [Moles/Vol] 28.0 mmol/L 21.0-32.0 [facility] Work Phone: Urea nitrogen/Creatinine [Mass ratio] 79.4 mg/mg 10-20 [facility] Work Phone: Laboratory - Hematology and Cell countson 07-11-2021 Erythrocyte distribution width (RBC) [Entitic vol] 44.5 fL 35.1-43.9 [facility] Work Phone: Erythrocyte distribution width (RBC) [Ratio] 13.7 % 11.6-14.6 [facility] Work Phone: Immature granulocytes/100 WBC (Bld) 0.000 % 0.0-0.9 [facility] Work Phone: Comment on above: IG% - Immature Granu locytes (promyelocytes, myelocytes and metamyelocytes) > 1% indicates that a LEFT SHIFT is Present. MCH (RBC) [Entitic mass] 28.2 pg 27.0-32.0 [facility] Work Phone: Nucleated RBC/100 WBC (Bld) [Ratio] 0 % 0-5 [facility] Work Phone: MCHC Auto (RBC) [Mass/Vol]on 07-11-2021 MCHC (RBC) [Mass/Vol] 31.9 g/dL 32-36 [facility] Work Phone: No Panel Informationon 07-11 Estimated GFR (MDRD) Amer 470 mL/min >60 [facility] Work Phone: Comment on above: GFR Calc Estimated GFR (MDRD) Non-Af Amer 388 mL/min >60 [facility] Work Phone: Comment on above: Non- GFR Calc Platelets bldon 07-11-2021 Platelets (Bld) [#/Vol] 163 10*3/uL 150-450 [facility] Work Phone: Serum or plasma calcium jacinta urement (mass/volume)on 07-11-2021 Calcium [Mass/Vol] 8.3 mg/dL 8.5-10.1 [facility] Work Phone: Serum or plasma creatinine m easurement (mass/volume)on 07-11-2021 Creatinine [Mass/Vol] 0.28 mg/dL 0.70-1.30 [facility] Work Phone: Comment on above: The validity of the calculated GFR & GFRAA in patients over 70 years has not been determined. Clinical correlation is essential. Serum or plasma urea nitroge n measurement (mass/volume)on 07-11-2021 Urea nitrogen [Mass/Vol] 22 mg/dL 7-18 [facility] Work Phone: Thin prep Papanicolaou smear with manual screeningon 07-11-2021 Thin prep Papanicolaou smear with manual screening 6 5-15 [facility] Work Phone: Absolute lymphocyte counton 06-11-2021 Lymphocytes Auto (Unsp spec) [#/Vol] 2.71 10*3/uL 0.83-4.51 [facility] Work Phone: Basophil percentageon 2021 Basophils/100 WBC (Bld) 0.5 % 0-1 [facility] Work Phone: Chloride [Moles/Vol] 103 mmol/L 98-107 [facility] Work Phone: Eosinophils/100 WBC (Bld) 5.6 % 0-5 [facility] Work Phone: Glucose [Mass/Vol] 82 mg/dL 74-106 [facility] Work Phone: Neutrophils (Bld) [#/Vol] 2.6 10*3/uL 2.0-7.7 [facility] Work Phone: [phone] Neutrophils/100 WBC (Bld) 41.2 % 47-70 [facility] Work Phone: Potassium [Moles/Vol] 4.1 mmol/L 3.5-5.1 [facility] Work Phone: Sodium [Moles/Vol] 140 mmol/L 136-145 [facility] Work Phone: WBC (Bld) [#/Vol] 6.3 10*3/uL 4.4-11.0 [facility] Work Phone: Blood erythrocytes count (nu mber/volume)on 06-11-2021 RBC (Bld) [#/Vol] 4.05 10*6/uL 4.6-6.2 [facility] Work [facility]: Blood hemoglobin measurement (mass/volume)on 06-11-2021 Hemoglobin (Bld) [Mass/Vol] 11.4 g/dL 13.0-16.5 [facility] Work Phone: Blood lymphocytes/100 leukoc yteson 06-11-2021 Lymphocytes/100 WBC (Bld) 43.0 % 19-41 [facility] Work Phone: Blood monocytes/100 leukocyt eson 06-11-2021 Monocytes/100 WBC (Bld) 9.5 % 0-10 [facility] Work Phone: Blood platelet mean volumeon 06-11-2021 Platelet mean volume (Bld) [Entitic vol] 10.4 fL 6.2-12.0 [facility] Work Phone: Determination of erythrocyte mean corpuscular volume (MCV)on 06-11-2021 MCV (RBC) [Entitic vol] 87.2 fL 80-94 [facility] Work Phone: Hematocrit Auto (Bld) [Volum e fraction]on 06-11-2021 Hematocrit (Bld) [Volume fraction] 35.3 % 40-54 [facility] Work Phone: Laboratory - Chemistry and C hemistry - challengeon 06-11-2021 CO2 [Moles/Vol] 32.0 mmol/L 21.0-32.0 [facility] Work Phone: Urea nitrogen/Creatinine [Mass ratio] 71.4 mg/mg 10-20 [facility] Work Phone: Laboratory - Hematology and Cell countson 06-11-2021 Erythrocyte distribution width (RBC) [Entitic vol] 44.3 fL 35.1-43.9 [facility] Work Phone: Erythrocyte distribution width (RBC) [Ratio] 14.0 % 11.6-14.6 [facility] Work Phone: Immature granulocytes/100 WBC (Bld) 0.200 % 0.0-0.9 [facility] Work Phone: Comment on above: IG% - Immature Granu locytes (promyelocytes, myelocytes and metamyelocytes) > 1% indicates that a LEFT SHIFT is Present. MCH (RBC) [Entitic mass] 28.1 pg 27.0-32.0 [facility] Work Phone: Nucleated RBC/100 WBC (Bld) [Ratio] 0 % 0-5 [facility] Work Phone: MCHC Auto (RBC) [Mass/Vol]on 06-11-2021 MCHC (RBC) [Mass/Vol] 32.3 g/dL 32-36 [facility] Work Phone: No Panel Informationon 06-11 Estimated GFR (MDRD) Amer 492 mL/min >60 [facility] Work Phone: Comment on above: GFR Calc Estimated GFR (MDRD) Non-Af Amer 407 mL/min >60 [facility] Work Phone: Comment on above: Non- GFR Calc Platelets bldon 06-11-2021 Platelets (Bld) [#/Vol] 185 10*3/uL 150-450 [facility] Work Phone: Serum or plasma calcium jacinta urement (mass/volume)on 06-11-2021 Calcium [Mass/Vol] 8.7 mg/dL 8.5-10.1 [facility] Work Phone: Serum or plasma creatinine m easurement (mass/volume)on 06-11-2021 Creatinine [Mass/Vol] 0.27 mg/dL 0.70-1.30 [facility] Work Phone: Comment on above: The validity of the calculated GFR & GFRAA in patients over 70 years has not been determined. Clinical correlation is essential. Serum or plasma urea nitroge n measurement (mass/volume)on 06-11-2021 Urea nitrogen [Mass/Vol] 19 mg/dL 7-18 [facility] Work Phone: Thin prep Papanicolaou smear with manual screeningon 06-11-2021 Thin prep Papanicolaou smear with manual screening 5 5-15 [facility] Work Phone: Absolute lymphocyte counton 05-19-2021 Lymphocytes Auto (Unsp spec) [#/Vol] 2.08 10*3/uL 0.83-4.51 [facility] Work Phone: Basophil percentageon 2021 Basophils/100 WBC (Bld) 0.5 % 0-1 [facility] Work Phone: Chloride [Moles/Vol] 104 mmol/L 98-107 [facility] Work Phone: Eosinophils/100 WBC (Bld) 9.4 % 0-5 [facility] Work Phone: Glucose [Mass/Vol] 98 mg/dL 74-106 [facility] Work Phone: Neutrophils (Bld) [#/Vol] 3.2 10*3/uL 2.0-7.7 [facility] Work Phone: Neutrophils/100 WBC (Bld) 49.4 % 47-70 [facility] Work Phone: [phone] Potassium [Moles/Vol] 4.2 mmol/L 3.5-5.1 [facility] Work Phone: [phone] Sodium [Moles/Vol] 136 mmol/L 136-145 [facility] Work Phone: [phone] WBC (Bld) [#/Vol] 6.4 10*3/uL 4.4-11.0 [facility] Work Phone: [phone] Blood erythrocytes count (nu mber/volume)on 05-19-2021 RBC (Bld) [#/Vol] 4.21 10*6/uL 4.6-6.2 [facility] Work Phone: Blood hemoglobin measurement (mass/volume)on 05-19-2021 Hemoglobin (Bld) [Mass/Vol] 11.7 g/dL 13.0-16.5 [facility] Work Phone: Blood lymphocytes/100 leukoc yteson 05-19-2021 Lymphocytes/100 WBC (Bld) 32.4 % 19-41 [facility] Work Phone: [phone] Blood monocytes/100 leukocyt eson 05-19-2021 Monocytes/100 WBC (Bld) 8.1 % 0-10 [facility] Work Phone: Blood platelet adequacy dete ction by light microscopyon 05-19-2021 Platelets LM Ql (Bld) SLT DEC ADEQ [facility] Work Phone: Blood platelet mean volumeon 05-19-2021 Platelet mean volume (Bld) [Entitic vol] 10.3 fL 6.2-12.0 [facility] Work Phone: Determination of erythrocyte mean corpuscular volume (MCV)on 05-19-2021 MCV (RBC) [Entitic vol] 86.7 fL 80-94 [facility] Work Phone: Hematocrit Auto (Bld) [Volum e fraction]on 05-19-2021 Hematocrit (Bld) [Volume fraction] 36.5 % 40-54 [facility] Work Phone: Laboratory - Chemistry and C hemistry - challengeon 05-19-2021 CO2 [Moles/Vol] 26.0 mmol/L 21.0-32.0 [facility] Work Phone: Urea nitrogen/Creatinine [Mass ratio] 32.7 mg/mg 10-20 [facility] Work Phone: Laboratory - Hematology and Cell countson 05-19-2021 Anisocytosis Ql (Bld) RARE [facility] Work Phone: Erythrocyte distribution width (RBC) [Entitic vol] 44.8 fL 35.1-43.9 [facility] Work Phone: Erythrocyte distribution width (RBC) [Ratio] 14.2 % 11.6-14.6 [facility] Work Phone: Immature granulocytes/100 WBC (Bld) 0.200 % 0.0-0.9 [facility] Work Phone: Comment on above: IG% - Immature Granu locytes (promyelocytes, myelocytes and metamyelocytes) > 1% indicates that a LEFT SHIFT is Present. MCH (RBC) [Entitic mass] 27.8 pg 27.0-32.0 [facility] Work Phone: Nucleated RBC/100 WBC (Bld) [Ratio] 0 % 0-5 [facility] Work Phone: MCHC Auto (RBC) [Mass/Vol]on 05-19-2021 MCHC (RBC) [Mass/Vol] 32.1 g/dL 32-36 [facility] Work Phone: No Panel Informationon 05-19 Estimated Creatinine Clearance Calc 189.56 ml/min [facility] Work Phone: Estimated GFR (MDRD) Amer 340 mL/min >60 [facility] Work Phone: Comment on above: GFR Calc Estimated GFR (MDRD) Non-Af Amer 281 mL/min >60 [facility] Work Phone: Comment on above: Non- GFR Calc Platelets bldon 05-19-2021 Platelets (Bld) [#/Vol] 134 10*3/uL 150-450 [facility] Work Phone: RBC morphologyon 05-19-2021 RBC morphology finding Nom (Bld) N CHROM NORMAL NORM C&C [facility] Work Phone: Serum or plasma calcium jacinta urement (mass/volume)on 05-19-2021 Calcium [Mass/Vol] 8.8 mg/dL 8.5-10.1 [facility] Work Phone: Serum or plasma creatinine m easurement (mass/volume)on 05-19-2021 Creatinine [Mass/Vol] 0.37 mg/dL 0.70-1.30 [facility] Work Phone: Comment on above: The validity of the calculated GFR & GFRAA in patients over 70 years has not been determined. Clinical correlation is essential. Serum or plasma urea nitroge n measurement (mass/volume)on 05-19-2021 Urea nitrogen [Mass/Vol] 12 mg/dL 7-18 [facility] Work Phone: Thin prep Papanicolaou smear with manual screeningon 05-19-2021 Thin prep Papanicolaou smear with manual screening 6 5-15 [facility] Work Phone: Absolute lymphocyte counton 05-13-2021 Lymphocytes Auto (Unsp spec) [#/Vol] 3.26 10*3/uL 0.83-4.51 [facility] Work Phone: Basophil percentageon 2021 Basophils/100 WBC (Bld) 0.1 % 0-1 [facility] Work Phone: Chloride [Moles/Vol] 108 mmol/L 98-107 [facility] Work Phone: Eosinophils/100 WBC (Bld) 6.0 % 0-5 [facility] Work Phone: Glucose [Mass/Vol] 107 mg/dL 74-106 [facility] Work Phone: Comment on above: Fasting Glucose resu lt from 100 to 125 mg/dL suggests IMPAIRED HOMEOSTASIS per A.D.A. criteria. Neutrophils (Bld) [#/Vol] 2.9 10*3/uL 2.0-7.7 [facility] Work Phone: Neutrophils/100 WBC (Bld) 39.4 % 47-70 [facility] Work Phone: Potassium [Moles/Vol] 3.8 mmol/L 3.5-5.1 [facility] Work Phone: Sodium [Moles/Vol] 140 mmol/L 136-145 [facility] Work Phone: WBC (Bld) [#/Vol] 7.3 10*3/uL 4.4-11.0 [facility] Work Phone: Blood erythrocytes count (nu mber/volume)on 05-13-2021 RBC (Bld) [#/Vol] 4.06 10*6/uL 4.6-6.2 [facility] Work Phone: Blood hemoglobin measurement (mass/volume)on 05-13-2021 Hemoglobin (Bld) [Mass/Vol] 11.4 g/dL 13.0-16.5 [facility] Work Phone: Blood lymphocytes/100 leukoc yteson 05-13-2021 Lymphocytes/100 WBC (Bld) 44.6 % 19-41 [facility] Work Phone: Blood monocytes/100 leukocyt eson 05-13-2021 Monocytes/100 WBC (Bld) 9.8 % 0-10 [facility] Work Phone: Blood platelet mean volumeon 05-13-2021 Platelet mean volume (Bld) [Entitic vol] 10.6 fL 6.2-12.0 [facility] Work Phone: Determination of erythrocyte mean corpuscular volume (MCV)on 05-13-2021 MCV (RBC) [Entitic vol] 87.4 fL 80-94 [facility] Work Phone: Hematocrit Auto (Bld) [Volum e fraction]on 05-13-2021 Hematocrit (Bld) [Volume fraction] 35.5 % 40-54 [facility] Work Phone: Laboratory - Chemistry and C hemistry - challengeon 05-13-2021 CO2 [Moles/Vol] 29.0 mmol/L 21.0-32.0 [facility] Work Phone: Urea nitrogen/Creatinine [Mass ratio] 46.0 mg/mg 10-20 [facility] Work Phone: Laboratory - Hematology and Cell countson 05-13-2021 Erythrocyte distribution width (RBC) [Entitic vol] 45.3 fL 35.1-43.9 [facility] Work Phone: Erythrocyte distribution width (RBC) [Ratio] 14.2 % 11.6-14.6 [facility] Work Phone: Immature granulocytes/100 WBC (Bld) 0.100 % 0.0-0.9 [facility] Work Phone: Comment on above: IG% - Immature Granu locytes (promyelocytes, myelocytes and metamyelocytes) > 1% indicates that a LEFT SHIFT is Present. MCH (RBC) [Entitic mass] 28.1 pg 27.0-32.0 [facility] Work Phone: Nucleated RBC/100 WBC (Bld) [Ratio] 0.3 % 0-5 [facility] Work Phone: MCHC Auto (RBC) [Mass/Vol]on 05-13-2021 MCHC (RBC) [Mass/Vol] 32.1 g/dL 32-36 [facility] Work [facility]: No Panel Informationon 05-13 Estimated GFR (MDRD) Amer 389 mL/min >60 [facility] Work Phone: Comment on above: GFR Calc Estimated GFR (MDRD) Non-Af Amer 322 mL/min >60 [facility] Work Phone: Comment on above: Non- GFR Calc Platelets bldon 05-13-2021 Platelets (Bld) [#/Vol] 170 10*3/uL 150-450 [facility] Work Phone: Serum or plasma calcium jacinta urement (mass/volume)on 05-13-2021 Calcium [Mass/Vol] 8.9 mg/dL 8.5-10.1 [facility] Work Phone: Serum or plasma creatinine m easurement (mass/volume)on 05-13-2021 Creatinine [Mass/Vol] 0.33 mg/dL 0.70-1.30 [facility] Work Phone: Comment on above: The validity of the calculated GFR & GFRAA in patients over 70 years has not been determined. Clinical correlation is essential. Serum or plasma urea nitroge n measurement (mass/volume)on 05-13-2021 Urea nitrogen [Mass/Vol] 15 mg/dL 7-18 [facility] Work Phone: Thin prep Papanicolaou smear with manual screeningon 05-13-2021 Thin prep Papanicolaou smear with manual screening 3 5-15 [facility] Work Phone: Bronchoalveolar lavage cultu re with Gram stainon 04-28-2021 Respiratory Culture Pseudomonas aeroginosa [facility] Work Phone: Respiratory Culture Streptococcus agalactiae (B) [facility] Work Phone: Respiratory Culture Positive [facility] Work Phone: Gram stain for investigation of transfusion reactionon 04-28-2021 Microscopic observation Gram stain Nom (Unsp spec) [facility] Work Phone: Basophil percentageon 2021 Chloride [Moles/Vol] 105 mmol/L 98-[address] [facility] [address] [facility] Work Phone: Glucose [Mass/Vol] 93 mg/dL 74-106 [facility] Work [facility]: Potassium [Moles/Vol] 4.0 mmol/L 3.5-5.1 [facility] Work Phone: Sodium [Moles/Vol] 139 mmol/L 136-145 [facility] Work Phone: WBC (Bld) [#/Vol] 6.8 10*3/uL 4.4-11.0 [facility] Work Phone: Blood erythrocytes count (nu mber/volume)on 04-21-2021 RBC (Bld) [#/Vol] 4.12 10*6/uL 4.6-6.2 [facility] Blood hemoglobin measurement (mass/volume)on 04-21-2021 Hemoglobin (Bld) [Mass/Vol] 12.2 g/dL 13.0-16.5 [facility] Work Phone: Blood platelet mean volumeon 04-21-2021 Platelet mean volume (Bld) [Entitic vol] 11.3 fL 6.2-12.0 [facility] Work Phone: Determination of erythrocyte mean corpuscular volume (MCV)on 04-21-2021 MCV (RBC) [Entitic vol] 86.9 fL 80-94 [facility] Work Phone: Hematocrit Auto (Bld) [Volum e fraction]on 04-21-2021 Hematocrit (Bld) [Volume fraction] 35.8 % 40-54 [facility] Work Phone: Laboratory - Chemistry and C hemistry - challengeon 04-21-2021 CO2 [Moles/Vol] 29.0 mmol/L 21.0-32.0 [facility] Work Phone: Urea nitrogen/Creatinine [Mass ratio] 59.4 mg/mg 10-20 [facility] Work Phone: Laboratory - Hematology and Cell countson 04-21-2021 Erythrocyte distribution width (RBC) [Entitic vol] 43.7 fL 35.1-43.9 [facility] Work Phone: Erythrocyte distribution width (RBC) [Ratio] 13.9 % 11.6-14.6 [facility] Work Phone: MCH (RBC) [Entitic mass] 29.6 pg 27.0-32.0 [facility] Work Phone: MCHC Auto (RBC) [Mass/Vol]on 04-21-2021 MCHC (RBC) [Mass/Vol] 34.1 g/dL 32- [facility] Work Phone: No Panel Informationon 04-21 Estimated GFR (MDRD) Amer 424 mL/min >60 [facility] Work Phone: Comment on above: GFR Calc Estimated GFR (MDRD) Non-Af Amer 350 mL/min >60 [facility] Work Phone: Comment on above: Non- GFR Calc Platelets bldon 04-21-2021 Platelets (Bld) [#/Vol] 185 10*3/uL 150-450 [facility] Work Phone: Serum or plasma calcium jacinta urement (mass/volume)on 04-21-2021 Calcium [Mass/Vol] 8.6 mg/dL 8.5-10.1 [facility] Work Phone: Serum or plasma creatinine m easurement (mass/volume)on 04-21-2021 Creatinine [Mass/Vol] 0.30 mg/dL 0.70-1.30 [facility] Work Phone: Comment on above: The validity of the calculated GFR & GFRAA in patients over 70 years has not been determined. Clinical correlation is essential. Serum or plasma urea nitroge n measurement (mass/volume)on 04-21-2021 Urea nitrogen [Mass/Vol] 18 mg/dL 7-18 [facility] Work Phone: Thin prep Papanicolaou smear with manual screeningon 04-21-2021 Thin prep Papanicolaou smear with manual screening 5 5-15 [facility] Work Phone: Basophil percentageon 2021 Chloride [Moles/Vol] 103 mmol/L 98-107 [facility] Work Phone: Glucose [Mass/Vol] 90 mg/dL 74-106 [facility] Work Phone: Potassium [Moles/Vol] 3.7 mmol/L 3.5-5.1 [facility] Work Phone: Sodium [Moles/Vol] 137 mmol/L 136-145 [facility] Work Phone: WBC (Bld) [#/Vol] 5.6 10*3/uL 4.4-11.0 [facility] Work Phone: Blood erythrocytes count (nu mber/volume)on 03-25-2021 RBC (Bld) [#/Vol] 4.03 10*6/uL 4.6-6.2 [facility] Work Phone: Blood hemoglobin measurement (mass/volume)on 03-25-2021 Hemoglobin (Bld) [Mass/Vol] 11.5 g/dL 13.0-16.5 [facility] Work Phone: Blood platelet mean volumeon 03-25-2021 Platelet mean volume (Bld) [Entitic vol] 10.5 fL 6.2-12.0 [facility] Work Phone: Determination of erythrocyte mean corpuscular volume (MCV)on 03-25-2021 MCV (RBC) [Entitic vol] 86.8 fL 80-94 [facility] Work Phone: Hematocrit Auto (Bld) [Volum e fraction]on 03-25-2021 Hematocrit (Bld) [Volume fraction] 35.0 % 40-54 [facility] Work Phone: Laboratory - Chemistry and C hemistry - challengeon 03-25-2021 CO2 [Moles/Vol] 28.0 mmol/L 21.0-32.0 [facility] Work Phone: Urea nitrogen/Creatinine [Mass ratio] 54.3 mg/mg 10-20 [facility] Work Phone: Laboratory - Hematology and Cell countson 03-25-2021 Erythrocyte distribution width (RBC) [Entitic vol] 44.0 fL 35.1-43.9 [facility] Work Phone: Erythrocyte distribution width (RBC) [Ratio] 13.7 % 11.6-14.6 [facility] Work Phone: MCH (RBC) [Entitic mass] 28.5 pg 27.0-32.0 [facility] Work Phone: MCHC Auto (RBC) [Mass/Vol]on 03-25-2021 MCHC (RBC) [Mass/Vol] 32.9 g/dL 32-36 [facility] Work Phone: No Panel Informationon 03-25 Estimated GFR (MDRD) Amer 359 mL/min >60 [facility] Work Phone: Comment on above: GFR Calc Estimated GFR (MDRD) Non-Af Amer 297 mL/min >60 [facility] Work Phone: Comment on above: Non- GFR Calc Platelets bldon 03-25-2021 Platelets (Bld) [#/Vol] 175 10*3/uL 150-450 [facility] Work Phone: Serum or plasma calcium jacinta urement (mass/volume)on 03-25-2021 Calcium [Mass/Vol] 8.2 mg/dL 8.5-10.1 [facility] Work Phone: Serum or plasma creatinine m easurement (mass/volume)on 03-25-2021 Creatinine [Mass/Vol] 0.35 mg/dL 0.70-1.30 [facility] Work Phone: Comment on above: The validity of the calculated GFR & GFRAA in patients over 70 years has not been determined. Clinical correlation is essential. Serum or plasma urea nitroge n measurement (mass/volume)on 03-25-2021 Urea nitrogen [Mass/Vol] 19 mg/dL 7-18 [facility] Work Phone: Thin prep Papanicolaou smear with manual screeningon 03-25-2021 Thin prep Papanicolaou smear with manual screening 6 5-15 [facility] Work Phone: Basophil percentageon 2021 Chloride [Moles/Vol] 104 mmol/L 98-107 [facility] Work Phone: Glucose [Mass/Vol] 130 mg/dL 74-106 [facility] Work Phone: Comment on above: Fasting Glucose resu lt greater than or equal to 126 mg/dL suggests DIABETES MELLITUS per A.D.A. criteria.Please note revised GLUCOSE reference range effective 2017. Potassium [Moles/Vol] 3.2 mmol/L 3.5-5.1 [facility] Work Phone: Sodium [Moles/Vol] 139 mmol/L 136-145 [facility] Work Phone: WBC (Bld) [#/Vol] 5.2 10*3/uL 4.4-11.0 [facility] Work Phone: Blood erythrocytes count (nu mber/volume)on 02-24-2021 RBC (Bld) [#/Vol] 3.88 10*6/uL 4.6-6.2 [facility] Work Phone: Blood hemoglobin measurement (mass/volume)on 02-24-2021 Hemoglobin (Bld) [Mass/Vol] 10.8 g/dL 13.0-16.5 [facility] Work Phone: Blood platelet mean volumeon 02-24-2021 Platelet mean volume (Bld) [Entitic vol] 10.7 fL 6.2-12.0 [facility] Work Phone: Determination of erythrocyte mean corpuscular volume (MCV)on 02-24-2021 MCV (RBC) [Entitic vol] 87.4 fL 80-94 [facility] Work Phone: Hematocrit Auto (Bld) [Volum e fraction]on 02-24-2021 Hematocrit (Bld) [Volume fraction] 33.9 % 40-54 [facility] Work Phone: Laboratory - Chemistry and C hemistry - challengeon 02-24-2021 CO2 [Moles/Vol] 26.0 mmol/L 21.0-32.0 [facility] Work Phone: Urea nitrogen/Creatinine [Mass ratio] 49.8 mg/mg 10-20 [facility] Work Phone: Laboratory - Hematology and Cell countson 02-24-2021 Erythrocyte distribution width (RBC) [Entitic vol] 45.6 fL 35.1-43.9 [facility] Work Phone: Erythrocyte distribution width (RBC) [Ratio] 14.3 % 11.6-14.6 [facility] Work Phone: MCH (RBC) [Entitic mass] 27.8 pg 27.0-32.0 [facility] Work Phone: MCHC Auto (RBC) [Mass/Vol]on 02-24-2021 MCHC (RBC) [Mass/Vol] 31.9 g/dL 32-36 [facility] Work Phone: No Panel Informationon 02-24 Estimated GFR (MDRD) Amer 463 mL/min >60 [facility] Work Phone: Comment on above: GFR Calc Estimated GFR (MDRD) Non-Af Amer 382 mL/min >60 [facility] Work Phone: Comment on above: Non- GFR Calc Platelets bldon 02-24-2021 Platelets (Bld) [#/Vol] 175 10*3/uL 150-450 [facility] Work Phone: Serum or plasma calcium jacinta urement (mass/volume)on 02-24-2021 Calcium [Mass/Vol] 8.3 mg/dL 8.5-10.1 [facility] Work Phone: Serum or plasma creatinine m easurement (mass/volume)on 02-24-2021 Creatinine [Mass/Vol] 0.28 mg/dL 0.70-1.30 [facility] Work Phone: Comment on above: The validity of the calculated GFR & GFRAA in patients over 70 years has not been determined. Clinical correlation is essential. Serum or plasma urea nitroge n measurement (mass/volume)on 02-24-2021 Urea nitrogen [Mass/Vol] 14 mg/dL 7-18 [facility] Work Phone: Thin prep Papanicolaou smear with manual screeningon 02-24-2021 Thin prep Papanicolaou smear with manual screening 9 5-15 [facility] Work Phone: Basophil percentageon 2020 Chloride [Moles/Vol] 103 mmol/L 98-107 [facility] Work Phone: Glucose [Mass/Vol] 89 mg/dL 74-106 [facility] Work Phone: Comment on above: Please note revised GLUCOSE reference range effective 2017. Potassium [Moles/Vol] 4.2 mmol/L 3.5-5.1 [facility] Work Phone: Sodium [Moles/Vol] 138 mmol/L 136-145 [facility] Work Phone: WBC (Bld) [#/Vol] 7.3 10*3/uL 4.4-11.0 [facility] Work Phone: Blood erythrocytes count (nu mber/volume)on 01-28-2021 RBC (Bld) [#/Vol] 4.27 10*6/uL 4.6-6.2 [facility] Work Phone: Blood hemoglobin measurement (mass/volume)on 01-28-2021 Hemoglobin (Bld) [Mass/Vol] 11.7 g/dL 13.0-16.5 [facility] Work Phone: Blood platelet mean volumeon 01-28-2021 Platelet mean volume (Bld) [Entitic vol] 10.6 fL 6.2-12.0 [facility] Work Phone: Determination of erythrocyte mean corpuscular volume (MCV)on 01-28-2021 MCV (RBC) [Entitic vol] 85.2 fL 80-94 [facility] Work Phone: Hematocrit Auto (Bld) [Volum e fraction]on 01-28-2021 Hematocrit (Bld) [Volume fraction] 36.4 % 40-54 [facility] Work Phone: Laboratory - Chemistry and C hemistry - challengeon 01-28-2021 CO2 [Moles/Vol] 29.0 mmol/L 21.0-32.0 [facility] Work Phone: Urea nitrogen/Creatinine [Mass ratio] 41.8 mg/mg 10-20 [facility] Work Phone: Laboratory - Hematology and Cell countson 01-28-2021 Erythrocyte distribution width (RBC) [Entitic vol] 44.3 fL 35.1-43.9 [facility] Work Phone: Erythrocyte distribution width (RBC) [Ratio] 14.3 % 11.6-14.6 [facility] Work Phone: MCH (RBC) [Entitic mass] 27.4 pg 27.0-32.0 [facility] Work Phone: MCHC Auto (RBC) [Mass/Vol]on 01-28-2021 MCHC (RBC) [Mass/Vol] 32.1 g/dL 32-36 [facility] Work Phone: No Panel Informationon 01-28 Estimated GFR (MDRD) Amer 378 mL/min >60 [facility] Work Phone: Comment on above: GFR Calc Estimated GFR (MDRD) Non-Af Amer 312 mL/min >60 [facility] Work Phone: Comment on above: Non- GFR Calc Platelets bldon 01-28-2021 Platelets (Bld) [#/Vol] 233 10*3/uL 150-450 [facility] Work Phone: Serum or plasma calcium jacinta urement (mass/volume)on 01-28-2021 Calcium [Mass/Vol] 8.8 mg/dL 8.5-10.1 [facility] Work Phone: Serum or plasma creatinine m easurement (mass/volume)on 01-28-2021 Creatinine [Mass/Vol] 0.34 mg/dL 0.70-1.30 [facility] Work Phone: Comment on above: The validity of the calculated GFR & GFRAA in patients over 70 years has not been determined. Clinical correlation is essential. Serum or plasma urea nitroge n measurement (mass/volume)on 01-28-2021 Urea nitrogen [Mass/Vol] 14 mg/dL 7-18 [facility] Work Phone: Thin prep Papanicolaou smear with manual screeningon 01-28-2021 Thin prep Papanicolaou smear with manual screening 6 5-15 [facility] Work Phone: Office Visit: Peg changeon 0 10-09-2016 Documentation of current medications (procedure) Done Invalid Interpretation Code [facility] Work Phone: Fall risk assessment No Invalid Interpretation Code [facility] Work Phone: Tobacco smoking status NHIS Never Invalid Interpretation Code [facility] Work Phone: Tobacco use CPHS Never smoker Invalid Interpretation Code [facility] Work Phone: Lab Report: BNP,B-Type NATRI URETIC PEPTIDEon 08-28-2016 BNP 9.5 pg/mL Invalid Interpretation Code 0-100 [facility] Work Phone: [phone] Lab Report: Basic Metabolic Profile (BMP)on 08-28-2016 Anion gap 4 mmol/L Low 5-15 [facility] Work Phone: [phone] BUN/Creatinine Ratio 76.9 RATIO High 10-[address] [facility] Work Phone: [phone] Calcium 8.7 mg/dL Invalid Interpretation Code 8.5-10.1 [facility] Work Phone: [phone] Chloride 106 mmol/L Invalid Interpretation Code 98-107 [facility] Work Phone: [phone] CO2 31.0 mmol/L Invalid Interpretation Code 21.0-32.0 [facility] Work Phone: [phone] Creatinine 0.32 mg/dL Low 0.70-1.30 [facility] Work Phone: [phone] eGFR (non-black) 401 mL/min/{1.73_m2} Invalid Interpretation Code >60 [facility] Work Phone: [phone] eGFR (non-black) 332 mL/min/{1.73_m2} Invalid Interpretation Code >60 [facility] Work Phone: [phone] Glucose 114 mg/dL High 70-110 [facility] Work Phone: [phone] Potassium 3.6 mmol/L Invalid Interpretation Code 3.5-5.1 [facility] Work Phone: [phone] Sodium 141 mmol/L Invalid Interpretation Code 136-145 [facility] Work Phone: [phone] Urea nitrogen 25 mg/dL High 7-18 [facility] Work Phone: [phone] Office Visiton 08-28-2016 Documentation of current medications (procedure) Done Invalid Interpretation Code [facility] Work Phone: [phone] Fall risk assessment No Invalid Interpretation Code [facility] Work Phone: [phone] 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 Erythrocytes (RBC) 3.93 10*6/uL Low [facility] Work Phone: [phone] Hematocrit (HCT) 35.4 % Low [facility] Work Phone: [phone] Hemoglobin (HGB) 11.3 g/dL Low [facility] Work Phone: [phone] MCH 28.8 pg Invalid Interpretation Code [facility] Work Phone: [phone] MCHC 31.9 g/dL Low [facility] Work Phone: [phone] MCV 90.1 fL Invalid Interpretation Code [facility] Work Phone: [phone] Platelets 89 10*3/mm3 Low [facility] Work Phone: [phone] PMV by Garrett 12.6 fL High [facility] Work Phone: [phone] RDW-CA 15.7 % High [facility] Work Phone: [phone] WBC (Leukocytes) 4.1 10*3/uL Low [facility] Work Phone: [phone] Office Visit: S/P [place] [facility] 06-15-2016 Documentation of current medications (procedure) Done Invalid Interpretation Code [facility] Work Phone: [phone] Fall risk assessment No Invalid Interpretation Code [facility] Work Phone: [phone] Tobacco smoking status NHIS Never Invalid Interpretation Code [facility] Work Phone: [phone] Tobacco use CPHS Never smoker Invalid Interpretation Code [facility] Work Phone: [phone] Lab Report: CBC-Complete Blo od Cnt No Diffon 05-28-2016 Erythrocytes (RBC) 3.67 10*6/uL Low 4.6-6.[address] [facility] Work Phone: [phone] Hematocrit (HCT) 32.9 % Low 40-54 [facility] Work Phone: [phone] Hemoglobin (HGB) 10.9 g/dL Low 13.0-16.5 [facility] Work Phone: [phone] MCH 29.7 pg Invalid Interpretation Code 27.0-32.0 [facility] Work Phone: [phone] MCHC 33.1 G/GL Invalid Interpretation Code 32-36 [facility] Work Phone: [phone] MCV 89.6 fL Invalid Interpretation Code 80-94 [facility] Work Phone: [phone] Platelets 115 10*3/mm3 Low 150-450 [facility] Work Phone: [phone] PMV by Garrett 11.5 fL Invalid Interpretation Code 6.2-12.0 [facility] Work Phone: [phone] RDW-CA 14.9 % High 11.6-14.6 [facility] Work Phone: [phone] red blood cell distribution width, size density 48.2 fL High 35.1-43.9 [facility] Work Phone: [phone] WBC (Leukocytes) 5.4 10*3/uL Invalid Interpretation Code 4.4-11.0 [facility] Work Phone: [phone] Lab Report: Partial Thrombop last Timeon 05-28-2016 aPTT 24.9 s Invalid Interpretation Code 24.1-36.2 [facility] Work Phone: [phone] Lab Report: Prothrombin Time w/INRon 05-28-2016 Coagulation tissue factor induced in platelet poor plasma 12.7 s Invalid Interpretation Code 11.7-14.9 [facility] Work Phone: [phone] INR in blood by coagulation 1.0 {INR} Invalid Interpretation Code [facility] Work Phone: [phone] Microbiology: Culture, Wound on 01-10-2016 wound culture Vancomycin $ 1 S Invalid Interpretation Code [facility] Work Phone: [phone] Lab Report: Basic Metabolic Profile (BMP)on 09-19-2015 Anion gap 10 mmol/L Invalid Interpretation Code 5-15 [facility] Work Phone: [phone] BUN/Creatinine Ratio 10.9 RATIO Invalid Interpretation Code 10-20 [facility] Work Phone: [phone] Calcium 8.2 mg/dL Low 8.5-10.1 [facility] Work Phone: [phone] Chloride 109 mmol/L High 98-107 [facility] Work Phone: [phone] CO2 23.0 mmol/L Invalid Interpretation Code 21.0-32.0 [facility] Work Phone: [phone] Creatinine 361.97 mL/min Invalid Interpretation Code [facility] Work Phone: [phone] Creatinine 0.28 mg/dL Low 0.70-1.30 [facility] Work Phone: [phone] eGFR (non-black) 403 mL/min/{1.73_m2} Invalid Interpretation Code >60 [facility] Work Phone: [phone] eGFR (non-black) 487 mL/min/{1.73_m2} Invalid Interpretation Code >60 [facility] Work Phone: [phone] Glucose 66 mg/dL Low 70-110 [facility] Work Phone: [phone] Potassium 3.1 mmol/L Low 3.5-5.1 [facility] Work Phone: [phone] Sodium 142 mmol/L Invalid Interpretation Code 136-145 [facility] Work Phone: [phone] Urea nitrogen 3 mg/dL Low 7-18 [facility] Work Phone: [phone] Lab Report: CBC W/Diff, Auto matedon 09-19-2015 Basophils/100 leukocytes 0.2 % Invalid Interpretation Code 0-1 [facility] Work Phone: [phone] Eosinophils/100 leukocytes 1.8 % Invalid Interpretation Code 0-5 [facility] Work Phone: [phone] immature granulocytes, percentage of total cells, blood 0.200 % Invalid Interpretation Code 0.0-0.9 [facility] Work Phone: [phone] Lymphocytes 2.07 X10 3/UL Invalid Interpretation Code 0.83-4.51 [facility] Work Phone: [phone] Lymphocytes/100 leukocytes 40.9 % Invalid Interpretation Code 19-41 [facility] Work Phone: [phone] Monocytes/100 leukocytes 13.8 % High 0-10 [facility] Work Phone: [phone] neutrophil count, blood 2.2 X10 3/UL Invalid Interpretation Code 2.0-7.7 [facility] Work Phone: Neutrophils/100 leukocytes 43.1 % Low 47-70 [facility] Work Phone: 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 Smoking cessation education (procedure) yes Invalid Interpretation Code [facility] Work Phone: Bronchoalveolar lavage cultu re with Gram stain Respiratory Culture Pseudomonas aeroginosa [facility] Work Phone: Respiratory Culture Streptococcus agalactiae (B) [facility] Work Phone: Respiratory Culture Positive [facility] Work Phone: Gram stain for investigation of transfusion reaction Microscopic observation Gram stain Nom (Unsp spec) [facility] Work Phone: Laboratory - Microbiology an d Antimicrobial susceptibility Respiratory pathogens DNA and RNA 12b panel YAYO+probe (Unsp spec) [facility] Work Phone: No Panel Information Respiratory Panel (PCR) [facility] Work Phone: SARS-CoV-2 & FLU Antigen (Rapid) [facility] Work Phone: Vital Signs Date Time Vital Sign Value Performing Clinician Facility 06-15-2024 13:47-0400 Body height 152.[address] Chente Conn MD Work Phone: [facility] 06-15-2024 13:47-0400 Body mass index (BMI) [Ratio] 33.2 kg/m2 Dr. Chente Conn MD Work Phone: [facility] 06-15-2024 13:47-0400 Body weight 77.[address] Chente Conn MD Work Phone: [facility] 06-15-2024 13:47-0400 Diastolic blood pressure 59 mm[Hg] Dr. Chente Conn MD Work Phone: [facility] 06-15-2024 13:47-0400 Heart rate 58 /min Dr. Chente Conn MD Work Phone: [facility] 06-15-2024 13:47-0400 Inhaled oxygen flow rate 2 L/min Dr. Chnete Conn MD Work Phone: [facility] 06-15-2024 13:47-0400 SaO2% (BldA) [Mass fraction] 95 % Dr. Chente Conn MD Work Phone: [facility] 06-15-2024 13:47-0400 Systolic blood pressure 87 mm[Hg] Dr. Chente Conn MD Work Phone: 7(406)693-792663 [address] 04-04-2024 08:14-0500 Body mass index (BMI) [Ratio] 33.2 kg/m2 Dr. Chente Conn MD Work Phone: 0(700)182-387406 [place] [address] 04-04-2024 08:14-0500 Body temperature 97.1 [degF] Dr. Chente Conn MD Work Phone: 5(571)343-996806 [place] [address] 04-04-2024 08:14-0500 Body weight 77.[address] Chente Conn MD Work Phone: 0(849)501-960763 [address] 04-04-2024 08:14-0500 Diastolic blood pressure 78 mm[Hg] Dr. Chente Conn MD Work Phone: 2(944)048-918606 [place] [address] 04-04-2024 08:14-0500 Heart rate 73 /min Dr. Chente Conn MD Work Phone: 8(062)892-543506 [place] [address] 04-04-2024 08:14-0500 Inhaled oxygen flow rate 2 L/min Dr. Chente Conn MD Work Phone: 8(876)840-169716 [place] [address] 04-04-2024 08:14-0500 Respiratory rate 20 /min Dr. Chente Conn MD Work Phone: 7(705)362-092663 [address] 04-04-2024 08:14-0500 SaO2% (BldA) [Mass fraction] 97 % Dr. Chente Conn MD Work Phone: 8(593)744-759216 [place] [address] 04-04-2024 08:14-0500 Systolic blood pressure 124 mm[Hg] Dr. Chente Conn MD Work Phone: 3(802)651-637363 [address] 2024 22:05-0500 Body temperature 97.9 [degF] Dr. Chente Conn MD Work Phone: 4(948)492-885316 [place] [address] 2024 22:05-0500 Diastolic blood pressure 106 mm[Hg] Dr. Chente Conn MD Work Phone: 1(736)039-103116 [place] [address] 2024 22:05-0500 Heart rate 72 /min Dr. Chente Conn MD Work Phone: 3(628)709-330706 [place] [address] 2024 22:05-0500 Respiratory rate 20 /min Dr. Chente Conn MD Work Phone: 2(965)969-277706 [place] [address] 2024 22:05-0500 SaO2% (BldA) [Mass fraction] 98 % Dr. Chente Conn MD Work Phone: 1(879)368-861006 [place] [address] 2024 22:05-0500 Systolic blood pressure 155 mm[Hg] Dr. Chente Conn MD Work Phone: 2(668)336-356116 [place] [address] 2024 22:00-0500 Inhaled oxygen flow rate 4 L/min Dr. Chente Conn MD Work Phone: 2(150)699-176506 [place] [address] 2024 18:08-0500 Inhaled oxygen concentration 4 % Dr. Chente Conn MD Work Phone: 0(661)588-092706 [place] [address] 2024 16:08-0500 Body height 152.[address] Chente Conn MD Work Phone: 3(936)121-971606 [place] [address] 2024 16:08-0500 Body mass index (BMI) [Ratio] 36.2 kg/m2 Dr. Chente Conn MD Work Phone: 0(637)097-087606 [place] [address] 2024 16:08-0500 Body weight 84.[address] Chente Conn MD Work Phone: 9(849)899-005206 [place] [address] 04-13-2023 16:06-0500 Body temperature 98.6 [degF] Dr. Chente Conn Work Phone: 3(280)385-785316 [place] [address] 04-13-2023 16:06-0500 Diastolic blood pressure 78 mm[Hg] Dr. Chente Conn Work Phone: [facility] 04-13-2023 16:06-0500 Heart rate 91 /min Dr. Chente Conn Work Phone: [facility] 04-13-2023 16:06-0500 Respiratory rate 17 /min Dr. Chente Conn Work Phone: 3(731)867-321016 [place] [address] 04-13-2023 16:06-0500 SaO2% (BldA) [Mass fraction] 96 % Dr. Chente Conn Work Phone: 0(734)006-311016 [place] [address] 04-13-2023 16:06-0500 Systolic blood pressure 101 mm[Hg] Dr. Chente Conn Work Phone: 6(079)326-197816 [place] [address] 04-13-2023 12:40-0500 Inhaled oxygen flow rate 3.5 L/min Dr. Chente Conn Work Phone: 8(439)929-912716 [place] [address] 04-13-2023 12:11-0500 Body height 152.[address] Chente Conn Work Phone: 6(150)728-099116 [place] [address] 04-13-2023 12:11-0500 Body mass index (BMI) [Ratio] 34.2 kg/m2 Dr. Chente Conn Work Phone: 9(334)638-895816 [place] [address] 04-13-2023 12:11-0500 Body weight 79.[address] Chente Conn Work Phone: [facility] 03-25-2023 09:30-0500 Inhaled oxygen flow rate 5 L/min Dr. Chente Conn Work Phone: 3(221)322-927616 [place] [address] 03-25-2023 09:17-0500 Body temperature 97.3 [degF] Dr. Chente Conn Work Phone: [facility] 03-25-2023 09:17-0500 Diastolic blood pressure 78 mm[Hg] Dr. Chente Conn Work Phone: [facility] 03-25-2023 09:17-0500 Heart rate 57 /min Dr. Chente Conn Work Phone: [facility] 03-25-2023 09:17-0500 Respiratory rate 13 /min Dr. Chente Conn Work Phone: [facility] 03-25-2023 09:17-0500 SaO2% (BldA) [Mass fraction] 97 % Dr. Chente Conn Work Phone: [facility] 03-25-2023 09:17-0500 Systolic blood pressure 121 mm[Hg] Dr. Chente Conn Work Phone: [facility] 03-25-2023 03:46-0500 Body mass index (BMI) [Ratio] 34.3 kg/m2 Dr. Chente Conn Work Phone: [facility] 03-25-2023 03:46-0500 Body weight 79.[address] Chente Conn Work Phone: [facility] 03-24-2023 09:21-0500 Body height 152.[address] Chente Conn Work Phone: [facility] 03-23-2023 16:45-0500 Body temperature 97.6 [degF] Dr. Chente Conn Work Phone: [facility] 03-23-2023 16:45-0500 Diastolic blood pressure 81 mm[Hg] Dr. Chente Conn Work Phone: [facility] 03-23-2023 16:45-0500 Heart rate 112 /min Dr. Chente Conn Work Phone: [facility] 03-23-2023 16:45-0500 Respiratory rate 20 /min Dr. Chente Conn Work Phone: [facility] 03-23-2023 16:45-0500 Systolic blood pressure 124 mm[Hg] Dr. Chente Conn Work Phone: [facility] 03-23-2023 15:25-0500 SaO2% (BldA) [Mass fraction] 95 % Dr. Chente Conn Work Phone: [facility] 03-23-2023 12:12-0500 Body height 152.[address] Chente Conn Work Phone: [facility] 03-23-2023 12:12-0500 Body mass index (BMI) [Ratio] 34.8 kg/m2 Dr. Chente Conn Work Phone: [facility] 03-23-2023 12:12-0500 Body weight 80.[address] Chente Conn Work Phone: 1(638)849-049216 [place] [address] 03-02-2023 09:13-0500 Body height 152.[address] Chente Conn Work Phone: 9(307)392-510163 [address] 03-02-2023 09:13-0500 Body mass index (BMI) [Ratio] 29.2 kg/m2 Dr. Chente Conn Work Phone: 8(505)950-873516 [place] [address] 03-02-2023 09:13-0500 Body temperature 97.3 [degF] Dr. Chente Conn Work Phone: 9(020)739-966516 [place] [address] 03-02-2023 09:13-0500 Body weight 68.[address] Chente Conn Work Phone: 0(708)798-358816 [place] [address] 03-02-2023 09:13-0500 Diastolic blood pressure 74 mm[Hg] Dr. Chente Conn Work Phone: [facility] 03-02-2023 09:13-0500 Heart rate 77 /min Dr. Chente Conn Work Phone: 5(358)543-079716 [place] [address] 03-02-2023 09:13-0500 Inhaled oxygen flow rate 2 L/min Dr. Chente Conn Work Phone: [facility] 03-02-2023 09:13-0500 Respiratory rate 20 /min Dr. Chente Conn Work Phone: [facility] 03-02-2023 09:13-0500 SaO2% (BldA) [Mass fraction] 97 % Dr. Chente Conn Work Phone: [facility] 03-02-2023 09:13-0500 Systolic blood pressure 104 mm[Hg] Dr. Chente Conn Work Phone: [facility] 01-16-2023 23:36-0500 Diastolic blood pressure 78 mm[Hg] Dr. Chente Conn Work Phone: [facility] 01-16-2023 23:36-0500 Heart rate 91 /min Dr. Chente Conn Work Phone: [facility] 01-16-2023 23:36-0500 Respiratory rate 16 /min Dr. Chente Conn Work Phone: [facility] 01-16-2023 23:36-0500 SaO2% (BldA) [Mass fraction] 98 % Dr. Chente Conn Work Phone: [facility] 01-16-2023 23:36-0500 Systolic blood pressure 127 mm[Hg] Dr. Chente Conn Work Phone: [facility] 01-16-2023 21:05-0500 Inhaled oxygen flow rate 4 L/min Dr. Chente Conn Work Phone: [facility] 01-16-2023 19:17-0500 Body height 152.[address] Chente Conn Work Phone: [facility] 01-16-2023 19:17-0500 Body mass index (BMI) [Ratio] 34.4 kg/m2 Dr. Chente Conn Work Phone: [facility] 01-16-2023 19:17-0500 Body temperature 97.3 [degF] Dr. Chente Conn Work Phone: [facility] 01-16-2023 19:17-0500 Body weight [address] Chente Conn Work Phone: [facility] 12-13-2022 14:22-0400 Inhaled oxygen concentration 30 % Dr. Chente Conn Work Phone: [facility] 12-13-2022 08:25-0400 Inhaled oxygen flow rate 4.5 L/min Dr. Chente Conn Work Phone: [facility] 12-13-2022 08:25-0400 SaO2% (BldA) [Mass fraction] 97 % Dr. Chente Conn Work Phone: [facility] 12-13-2022 07:56-0400 Body temperature 98.6 [degF] Dr. Chente Conn Work Phone: [facility] 12-13-2022 07:56-0400 Diastolic blood pressure 98 mm[Hg] Dr. Chente Conn Work Phone: [facility] 12-13-2022 07:56-0400 Heart rate 89 /min Dr. Chente Conn Work Phone: [facility] 12-13-2022 07:56-0400 Respiratory rate 18 /min Dr. Chente Conn Work Phone: [facility] 12-13-2022 07:56-0400 Systolic blood pressure 150 mm[Hg] Dr. Chente Conn Work Phone: [facility] 12-11-2022 13:56-0400 Body temperature 98.2 [degF] Dr. Chente Conn Work Phone: [facility] 12-11-2022 13:56-0400 Diastolic blood pressure 40 mm[Hg] Dr. Chente Conn Work Phone: [facility] 12-11-2022 13:56-0400 Heart rate 81 /min Dr. Chente Conn Work Phone: [facility] 12-11-2022 13:56-0400 Respiratory rate 18 /min Dr. Chente Conn Work Phone: [facility] 12-11-2022 13:56-0400 SaO2% (BldA) [Mass fraction] 100 % Dr. Chente Conn Work Phone: [facility] 12-11-2022 13:56-0400 Systolic blood pressure 147 mm[Hg] Dr. Chente Conn Work Phone: [facility] 12-11-2022 13:28-0400 Inhaled oxygen concentration 30 % Dr. Chente Conn Work Phone: [facility] 12-11-2022 12:44-0400 Inhaled oxygen flow rate 8 L/min Dr. Chente Conn Work Phone: [facility] 12-10-2022 16:06-0400 Body height 152.[address] Chente Conn Work Phone: [facility] 12-10-2022 16:06-0400 Body weight 77.[address] Chente Conn Work Phone: [facility] 12-10-2022 14:53-0400 Body mass index (BMI) [Ratio] 33.3 kg/m2 Dr. Chente Conn Work Phone: [facility] 12-10-2022 14:36-0400 Heart rate 112 /min Dr. Chente Conn Work Phone: [facility] 12-10-2022 14:36-0400 Respiratory rate 26 /min Dr. Chente Conn Work Phone: [facility] 12-10-2022 14:36-0400 SaO2% (BldA) [Mass fraction] 98 % Dr. Chente Conn Work Phone: [facility] 12-10-2022 12:40-0400 Body temperature 99.3 [degF] Dr. Chente Conn Work Phone: [facility] 12-10-2022 12:40-0400 Diastolic blood pressure 86 mm[Hg] Dr. Chente Conn Work Phone: [facility] 12-10-2022 12:40-0400 Systolic blood pressure 140 mm[Hg] Dr. Chente Conn Work Phone: [facility] 12-10-2022 09:37-0400 Body height 152.[address] Chente Conn Work Phone: [facility] 12-10-2022 09:37-0400 Body mass index (BMI) [Ratio] 40 kg/m2 Dr. Chente Conn Work Phone: [facility] 12-10-2022 09:37-0400 Body weight [address] Chente Conn Work Phone: [facility] 11-05-2022 14:00-0400 Inhaled oxygen concentration 28 % Dr. Chente Conn Work Phone: 6(037)638-961863 [address] 11-05-2022 13:30-0400 Body temperature 97 [degF] Dr. Chente Conn Work Phone: 7(960)949-918563 [address] 11-05-2022 13:30-0400 Diastolic blood pressure 93 mm[Hg] Dr. Chente Conn Work Phone: [facility] 11-05-2022 13:30-0400 Heart rate 90 /min Dr. Chente Conn Work Phone: 0(577)048-532716 [place] [address] 11-05-2022 13:30-0400 Inhaled oxygen flow rate 3 L/min Dr. Chente Conn Work Phone: [facility] 11-05-2022 13:30-0400 Respiratory rate 16 /min Dr. Chente Conn Work Phone: [facility] 11-05-2022 13:30-0400 SaO2% (BldA) [Mass fraction] 93 % Dr. Chente Conn Work Phone: [facility] 11-05-2022 13:30-0400 Systolic blood pressure 138 mm[Hg] [facility]. Chente Conn Work Phone: [facility] [facility] 11-02-2022 10:44-0400 Body height 152.[address] Chente Conn Work Phone: [facility] 11-02-2022 10:44-0400 Body weight [address] Chente Conn Work Phone: [facility] 10-28-2022 05:38-0400 Body mass index (BMI) [Ratio] 32.8 kg/m2 Dr. Chente Conn Work Phone: [facility] 09-17-2022 13:19-0400 Body height 150.[address] Chente Conn Work Phone: [facility] 09-17-2022 13:19-0400 Body mass index (BMI) [Ratio] 32.2 kg/m2 Dr. Chente Conn Work Phone: [facility] 09-17-2022 13:19-0400 Body temperature 96.6 [degF] Dr. Chente Conn Work Phone: [facility] 09-17-2022 13:19-0400 Body weight 72.[address] Chente Conn Work Phone: [facility] 09-17-2022 13:19-0400 Diastolic blood pressure 72 mm[Hg] Dr. Chente Conn Work Phone: [facility] 09-17-2022 13:19-0400 Heart rate 78 /min Dr. Chente Conn Work Phone: [facility] 09-17-2022 13:19-0400 Inhaled oxygen flow rate 2 L/min Dr. Chente Conn Work Phone: [facility] 09-17-2022 13:19-0400 Respiratory rate 20 /min Dr. Chente Conn Work Phone: [facility] 09-17-2022 13:19-0400 SaO2% (BldA) [Mass fraction] 96 % Dr. Chente Conn Work Phone: [facility] 09-17-2022 13:19-0400 Systolic blood pressure 110 mm[Hg] Dr. Chente Conn Work Phone: [facility] 05-01-2023 20:35-0400 Body temperature 97.6 [degF] Dr. Chente Conn Work Phone: [facility] 06-22-2022 20:35-0400 Diastolic blood pressure 74 mm[Hg] Dr. Chente Conn Work Phone: [facility] 06-22-2022 20:35-0400 Heart rate 90 /min Dr. Chente Conn Work Phone: [facility] 06-22-2022 20:35-0400 Respiratory rate 18 /min Dr. Chente Conn Work Phone: [facility] 06-22-2022 20:35-0400 SaO2% (BldA) [Mass fraction] 94 % Dr. Chente Conn Work Phone: [facility] 06-22-2022 20:35-0400 Systolic blood pressure 102 mm[Hg] Dr. Chente Conn Work Phone: [facility] 06-22-2022 18:20-0400 Body height 150.[address] Chente Conn Work Phone: [facility] 06-22-2022 18:20-0400 Body mass index (BMI) [Ratio] 38.7 kg/m2 Dr. Chente Conn Work Phone: [facility] 06-22-2022 18:20-0400 Body weight 87.[address] Chente Conn Work Phone: [facility] 06-22-2022 18:20-0400 Inhaled oxygen flow rate 4 L/min Dr. Chente Conn Work Phone: [facility] 06-12-2022 12:17-0400 Body temperature 97.5 [degF] Dr. Chente Conn Work Phone: [facility] 06-12-2022 12:17-0400 Diastolic blood pressure 73 mm[Hg] Dr. Chente Conn Work Phone: [facility] 06-12-2022 12:17-0400 Heart rate 64 /min Dr. Chente Conn Work Phone: [facility] 06-12-2022 12:17-0400 Respiratory rate 18 /min Dr. Chente Conn Work Phone: [facility] 06-12-2022 12:17-0400 SaO2% (BldA) [Mass fraction] 96 % Dr. Chente Conn Work Phone: [facility] 06-12-2022 12:17-0400 Systolic blood pressure 109 mm[Hg] Dr. Chente Conn Work Phone: [facility] 06-12-2022 10:38-0400 Body height 149.[address] Chente Conn Work Phone: [phone] [place] [address] 06-12-2022 10:38-0400 Body mass index (BMI) [Ratio] 34.2 kg/m2 Dr. Chente Conn Work Phone: [phone])[phone] [place] [address] 06-12-2022 10:38-04[address] Body weight [address] Chente Conn Work Phone: [facility] 06-12-2022 10:38-0400 Inhaled oxygen flow rate 5 L/min Dr. Chente Conn Work Phone: [facility] 04-01-2022 09:00-0500 Body temperature 99.2 [degF] Dr. Chente Conn Work Phone: [facility] 04-01-2022 09:00-0500 Diastolic blood pressure 90 mm[Hg] Dr. Chente Conn Work Phone: [facility] 04-01-2022 09:00-0500 Heart rate 88 /min Dr. Chente Conn Work Phone: [facility] 04-01-2022 09:00-0500 Inhaled oxygen flow rate 4 L/min Dr. Chente Conn Work Phone: [facility] 04-01-2022 09:00-0500 Respiratory rate 20 /min Dr. Chente Conn Work Phone: [facility] 04-01-2022 09:00-0500 SaO2% (BldA) [Mass fraction] 96 % Dr. Chente Conn Work Phone: [facility] 04-01-2022 09:00-0500 Systolic blood pressure 117 mm[Hg] Dr. Chente Conn Work Phone: [facility] 04-01-2022 04:58-0500 Body weight 76.[address] Chente Conn Work Phone: [facility] 03-31-2022 09:20-0500 Body height 151.[address] Chente Conn Work Phone: [facility] 03-24-2022 21:35-0500 Body height 151.[address] Chente Conn Work Phone: [facility] 03-24-2022 21:35-0500 Body mass index (BMI) [Ratio] 33.8 kg/m2 Dr. Chente Conn Work Phone: [facility] 03-24-2022 21:35-0500 Body weight 78.[address] Chente Conn Work Phone: [facility] 03-24-2022 20:54-0500 Body temperature 104 [degF] Dr. Chente Conn Work Phone: [facility] 03-24-2022 20:54-0500 Diastolic blood pressure 123 mm[Hg] Dr. Chente Conn Work Phone: [facility] 03-24-2022 20:54-0500 Heart rate 153 /min Dr. Chente Conn Work Phone: [facility] 03-24-2022 20:54-0500 Respiratory rate 44 /min Dr. Chente Conn Work Phone: [facility] 03-24-2022 20:54-0500 SaO2% (BldA) [Mass fraction] 93 % Dr. Chente Conn Work Phone: [facility] 03-24-2022 20:54-0500 Systolic blood pressure 145 mm[Hg] Dr. Chente Conn Work Phone: [facility] 03-24-2022 17:08-0500 Body height 152.[address] Chente Conn Work Phone: [facility] 03-24-2022 17:08-0500 Body mass index (BMI) [Ratio] 31.2 kg/m2 Dr. Chente Conn Work Phone: [facility] 03-24-2022 17:08-0500 Body weight 72.[address] Chente Conn Work Phone: [facility] 02-24-2022 22:38-0500 Body temperature 98.9 [degF] Dr. Chente Conn Work Phone: [facility] 02-24-2022 22:38-0500 Diastolic blood pressure 78 mm[Hg] Dr. Chente Conn Work Phone: [facility] 02-24-2022 22:38-0500 Heart rate 78 /min Dr. Chente Conn Work Phone: [facility] 02-24-2022 22:38-0500 Respiratory rate 13 /min Dr. Chente Conn Work Phone: [facility] 02-24-2022 22:38-0500 SaO2% (BldA) [Mass fraction] 95 % Dr. Chente Conn Work Phone: [facility] 02-24-2022 22:38-0500 Systolic blood pressure 127 mm[Hg] Dr. Chente Conn Work Phone: [facility] 02-24-2022 19:50-0500 Inhaled oxygen flow rate 4 L/min Dr. Chente Conn Work Phone: [facility] 02-24-2022 16:09-0500 Body height 152.[address] Chente Conn Work Phone: [facility] Work Phone: 02-24-2022 16:09-0500 Body mass index (BMI) [Ratio] 31.6 kg/m2 Dr. Chente Conn Work Phone: [facility] 02-24-2022 16:09-0500 Body weight 73.[address] Chente Conn Work Phone: [facility] 01-06-2022 13:12-0500 Body height 152.[address] Chente Conn Work Phone: [facility] Work Phone: 01-06-2022 13:12-0500 Body mass index (BMI) [Ratio] 31.2 kg/m2 Dr. Chente Conn Work Phone: [facility] 01-06-2022 13:12-0500 Body weight 72.[address] Chente Conn Work Phone: [facility] 01-06-2022 13:12-0500 Diastolic blood pressure 109 mm[Hg] Dr. Chente Conn Work Phone: [facility] 01-06-2022 13:12-0500 Heart rate 106 /min Dr. Chente Conn Work Phone: [facility] 01-06-2022 13:12-0500 Respiratory rate 18 /min Dr. Chente Conn Work Phone: [facility] 01-06-2022 13:12-0500 SaO2% (BldA) [Mass fraction] 94 % Dr. Chente Conn Work Phone: [facility] 01-06-2022 13:12-0500 Systolic blood pressure 144 mm[Hg] Dr. Chente Conn Work Phone: [facility] 12-19-2021 13:22-0400 Body height 152.[address] Chente Conn Work Phone: [facility] Work Phone: 12-19-2021 13:22-0400 Body mass index (BMI) [Ratio] 31.2 kg/m2 Dr. Chente oCnn Work Phone: [facility] 12-19-2021 13:22-0400 Body temperature 95.7 [degF] Dr. Chente Conn Work Phone: [facility] 12-19-2021 13:22-0400 Body weight 72.[address] Chente Conn Work Phone: [facility] 12-19-2021 13:22-0400 Diastolic blood pressure 76 mm[Hg] Dr. Chente Conn Work Phone: [phone] [place] [address] 12-19-2021 13:22-0400 Heart rate 66 /min Dr. Chente Conn Work Phone: [facility] 12-19-2021 13:22-0400 Inhaled oxygen flow rate 2 L/min Dr. Chente Conn Work Phone: [facility] 12-19-2021 13:22-0400 Respiratory rate 18 /min Dr. Chente Conn Work Phone: [facility] 12-19-2021 13:22-0400 SaO2% (BldA) [Mass fraction] 94 % Dr. Chente Conn Work Phone: [facility] 12-19-2021 13:22-0400 Systolic blood pressure 110 mm[Hg] Dr. Chente Conn Work Phone: [facility] 12-05-2021 15:00-0400 Body temperature 98.2 [degF] Dr. Chente Conn Work Phone: [facility] 12-05-2021 15:00-0400 Diastolic blood pressure 95 mm[Hg] Dr. Chente Conn Work Phone: [facility] 12-05-2021 15:00-0400 Heart rate 86 /min Dr. Chente Conn Work Phone: [facility] 12-05-2021 15:00-0400 Inhaled oxygen flow rate 4 L/min Dr. Chente Conn Work Phone: [facility] 12-05-2021 15:00-0400 Respiratory rate 17 /min Dr. Chente Conn Work Phone: [facility] 12-05-2021 15:00-0400 SaO2% (BldA) [Mass fraction] 95 % Dr. Chente Conn Work Phone: [facility] 12-05-2021 15:00-0400 Systolic blood pressure 118 mm[Hg] Dr. Chente Conn Work Phone: [facility] 12-04-2021 11:44-0400 Body height 152.[address] Chente Conn Work Phone: [facility] Work Phone: 12-04-2021 11:44-0400 Body weight 74.[address] Chente Conn Work Phone: [facility] 11-30-2021 15:07-0400 Body mass index (BMI) [Ratio] 32.2 kg/m2 Dr. Chente Conn Work Phone: [facility] 11-30-2021 14:32-0400 Body temperature 97.8 [degF] Dr. Chente Conn Work Phone: [facility] Work Phone: 11-30-2021 14:32-0400 Diastolic blood pressure 69 mm[Hg] Dr. Chente Conn Work Phone: [facility] Work Phone: 11-30-2021 14:32-0400 Heart rate 76 /min Dr. Chente Conn Work Phone: [facility] Work Phone: 11-30-2021 14:32-0400 Respiratory rate 15 /min Dr. Chente Conn Work Phone: [facility] Work Phone: 11-30-2021 14:32-0400 SaO2% (BldA) [Mass fraction] 96 % Dr. Chente Conn Work Phone: [facility] Work Phone: 11-30-2021 14:32-0400 Systolic blood pressure 112 mm[Hg] Dr. Chente Conn Work Phone: [facility] Work Phone: 11-30-2021 12:19-0400 Inhaled oxygen flow rate 4 L/min Dr. Chente Conn Work Phone: [facility] Work Phone: 11-30-2021 11:05-0400 Body height 121.[address] Chente Conn Work Phone: [facility] Work Phone: 11-30-2021 11:05-0400 Body mass index (BMI) [Ratio] 53.1 kg/m2 Dr. Chente Conn Work Phone: [facility] Work Phone: 11-30-2021 11:05-0400 Body weight [address] Chente Conn Work Phone: [facility] Work Phone: 08-19-2021 14:26-0400 Body height 152.[address] Chente Conn Work Phone: [facility] Work Phone: 08-19-2021 14:17-0400 Body mass index (BMI) [Ratio] 30.8 kg/m2 Dr. Chente Conn Work Phone: [facility] Work Phone: 08-19-2021 14:17-0400 Body temperature 97 [degF] Dr. Chente Conn Work Phone: [facility] Work Phone: 08-19-2021 14:17-0400 Body weight 71.[address] Chente Conn Work Phone: [facility] Work Phone: 08-19-2021 14:17-0400 Diastolic blood pressure 68 mm[Hg] Dr. Chente Conn Work Phone: [facility] Work Phone: 08-19-2021 14:17-0400 Heart rate 57 /min Dr. Chente Conn Work Phone: [facility] Work Phone: 08-19-2021 14:17-0400 Respiratory rate 17 /min Dr. Chente Conn Work Phone: [facility] Work Phone: 08-19-2021 14:17-0400 SaO2% (BldA) [Mass fraction] 97 % Dr. Chente Conn Work Phone: [facility] Work Phone: 08-19-2021 14:17-0400 Systolic blood pressure 110 mm[Hg] Dr. Chente Conn Work Phone: [facility] Work Phone: 07-16-2021 09:03-0400 Body height 152.[address] Chente Conn Work Phone: [facility] Work Phone: 07-16-2021 09:03-0400 Body mass index (BMI) [Ratio] 30.7 kg/m2 Dr. Chente Conn Work Phone: [facility] Work Phone: 07-16-2021 09:03-0400 Body weight 71.[address] Chente Conn Work Phone: [facility] Work Phone: 07-16-2021 09:03-0400 Diastolic blood pressure 71 mm[Hg] Dr. Chente Conn Work Phone: [facility] Work Phone: 07-16-2021 09:03-0400 Heart rate 68 /min Dr. Chente Conn Work Phone: [facility] Work Phone: 07-16-2021 09:03-0400 Respiratory rate 18 /min Dr. Chente Conn Work Phone: [facility] Work Phone: 07-16-2021 09:03-0400 SaO2% (BldA) [Mass fraction] 99 % Dr. Chente Conn Work Phone: [facility] Work Phone: 07-16-2021 09:03-0400 Systolic blood pressure 102 mm[Hg] Dr. Chente Conn Work Phone: [facility] Work Phone: 05-19-2021 21:15-0400 Diastolic blood pressure 72 mm[Hg] Dr. Chente Conn Work Phone: [facility] Work Phone: 05-19-2021 21:15-0400 Heart rate 79 /min Dr. Chente Conn Work Phone: [facility] Work Phone: 05-19-2021 21:15-0400 Respiratory rate 15 /min Dr. Chente Conn Work Phone: [facility] Work Phone: 05-19-2021 21:15-0400 SaO2% (BldA) [Mass fraction] 98 % Dr. Chente Conn Work Phone: [facility] Work Phone: 05-19-2021 21:15-0400 Systolic blood pressure 140 mm[Hg] Dr. Chente Conn Work Phone: [facility] Work Phone: 05-19-2021 18:07-0400 Body height 152.[address] Chente Conn Work Phone: [facility] Work Phone: 05-19-2021 18:07-0400 Body mass index (BMI) [Ratio] 31.8 kg/m2 Dr. Chente Conn Work Phone: [facility] Work Phone: 05-19-2021 18:07-0400 Body temperature 97.6 [degF] Dr. Chente Conn Work Phone: [facility] Work Phone: 05-19-2021 18:07-0400 Body weight [address] Chente Conn Work Phone: [facility] Work Phone: 04-15-2021 13:10-0500 Body temperature 97.2 [degF] Dr. Chente Conn Work Phone: [facility] Work Phone: 04-15-2021 13:10-0500 Body weight 72.[address] Chente Conn Work Phone: [facility] Work Phone: 04-15-2021 13:10-0500 Heart rate 85 /min Dr. Chente Conn Work Phone: [facility] Work Phone: 04-15-2021 13:10-0500 Respiratory rate 16 /min Dr. Chente Conn Work Phone: [facility] Work Phone: 04-15-2021 13:10-0500 SaO2% (BldA) [Mass fraction] 95 % Dr. Chente Conn Work Phone: [facility] Work Phone: 04-15-2021 12:10-0500 Body temperature 97.2 [degF] Dr. Chente Conn Work Phone: [facility] Work Phone: 04-15-2021 12:10-0500 Body weight 72.[address] Chente Conn Work Phone: [facility] Work Phone: 04-15-2021 12:10-0500 Heart rate 85 /min Dr. Chente Conn Work Phone: [facility] Work Phone: 04-15-2021 12:10-0500 Respiratory rate 16 /min Dr. Chente Conn Work Phone: [facility] Work Phone: 04-15-2021 12:10-0500 SaO2% (BldA) [Mass fraction] 95 % Dr. Chente Conn Work Phone: [facility] Work Phone: 03-24-2021 23:17-0500 Body mass index (BMI) [Ratio] 0 kg/m2 Dr. Chente Conn Work Phone: [facility] Work Phone: 02-21-2021 23:10-0500 Body mass index (BMI) [Ratio] 0 kg/m2 Dr. Chente Conn Work Phone: [facility] Work Phone: 01-21-2021 23:06-0500 Body mass index (BMI) [Ratio] 0 kg/m2 Dr. Chente Conn Work Phone: [facility] Work Phone: 08-28-2016 09:39-0400 BMI (Body Mass Index) 30.27 kg/m2 [facility] Work Phone: 08-28-2016 09:39-0400 BP Diastolic 62 mm[Hg] [facility] Work Phone: 08-28-2016 09:39-0400 BP Systolic 106 mm[Hg] [facility] Work Phone: 08-28-2016 09:39-0400 Height 152.4 cm [facility] Work Phone: 08-28-2016 09:39-0400 Pulse (Heart Rate) 78 /min [facility] Work Phone: 08-28-2016 09:39-0400 Respiratory Rate 12 /min Harumi [facility] Work Phone: 08-28-2016 09:39-0400 Weight 70.31 kg Harbennett DeFinis [facility] Work Phone: 06-15-2016 11:14-0400 BP Diastolic 87 mm[Hg] Chente Lara [employer] [facility] Work Phone: 06-15-2016 11:14-0400 BP Systolic 111 mm[Hg] Chente Lara [employer] [facility] Work Phone: 06-15-2016 11:14-0400 Pulse (Heart Rate) 60 /min Chente Lara [employer] [facility] Work Phone: 06-15-2016 11:14-0400 Respiratory Rate 16 /min Chente Lara [employer] [facility] Work Phone: 01-08-2016 09:55-0500 Body Temperature 97.2 [degF] Chente Marco [employer] [facility] Work Phone: Encounters Encounter Date Encounter Type Care Provider Facility Start: 09-03-2024 ambulatory Chente Conn Facilit y:[facility] Start: 09-01-2024 ambulatory Chente Conn Facilit y:[facility] Start: 08-22-2024 End: 08-22-[address] Chente Conn MD Work Phone: -Laboratory Specimen Start: 08-22-2024 End: 08-22-[address] Chente Conn MD -Laboratory Specimen Work Phone: Start: 08-22-2024 End: 08-22-2024 ambulatory Chente Conn Facility:[facility] Start: 07-26-2024 End: 07-26-2024 ambulatory Chente Conn MD [facility] Work Phone: Start: 07-26-2024 End: 07-26-[address] Roddy Quinones MD -[facility] [place] Work Phone: Start: 07-25-2024 End: 08-21-[address] Chente Conn MD -Laboratory Specimen Work Phone: Start: 07-25-[address] Chente Conn MD -Laboratory Specimen Work Phone: Start: 07-25-2024 End: 08-21-[address] Chente Conn MD Work Phone: -Laboratory Specimen Start: 07-18-2024 End: 07-18-[address] Chente Conn MD Work Phone: [facility] Work Phone: Start: 07-18-2024 End: 07-18-[address] Matteo oPsadas MD -Laboratory Specimen Work Phone: Start: 07-18-2024 End: 07-18-2024 ambulatory Chente Conn Facility:[facility] Start: 06-26-2024 End: 06-26-[address] Chente Conn MD Work Phone: [facility] Work Phone: Start: 06-26-2024 End: 06-26-[address] Chente Conn MD -Laboratory, Specimen Work Phone: Start: 06-26-2024 End: 06-26-2024 ambulatory Chente Conn Facility:[facility] Start: 06-15-2024 End: 06-15-[address] Matteo Posadas MD -[facility] Work Phone: Start: 06-15-2024 End: 06-15-2024 ambulatory Chente Conn Facility:[facility] [place] Start: 05-29-2024 End: 06-21-[address] Chente Conn MD -Laboratory, Specimen Work Phone: Start: 05-29-2024 End: 06-21-2024 ambulatory Chente Conn Facility:[facility] Start: 05-09-2024 End: 05-09-[address] Chente Conn MD Work Phone: [facility] Work Phone: Start: 05-09-2024 End: 05-09-2024 Patient encounter procedure Valarie Kee NP-C -Laboratory, Specimen Work Phone: Start: 05-09-2024 End: 05-09-2024 ambulatory Chente Conn Facility:[facility] Start: 05-01-2024 End: 05-22-[address] Chente Conn MD -Laboratory, Specimen Work Phone: Start: 05-01-[address] Chente Conn MD -Laboratory, Specimen Work Phone: Start: 05-01-2024 End: 05-22-[address] Chente Conn MD Work Phone: [facility] Work Phone: Start: 04-27-2024 ambulatory Chente Conn [facility] [place] y:[facility] Start: 04-25-2024 End: 04-25-[address] Chente Conn MD -Outpatient Bone Densitometry Work Phone: Start: 04-25-2024 End: 04-25-2024 ambulatory Chente Conn Facility:[facility] Start: 04-04-2024 End: 04-04-2024 Patient encounter procedure SRINIVAS Dior [facility] Pulmonary Medicine Work Phone: Start: 04-04-2024 End: 04-04-2024 ambulatory Chente Conn Facility:[facility] [place] Start: 04-03-2024 End: 04-21-[address] Chente Conn MD -Laboratory, Specimen Work Phone: Start: 04-03-2024 End: 04-21-2024 ambulatory Chente Conn Facility:[facility] Start: 03-16-2024 End: 03-16-[address] Roddy Quinones MD -Radiology, [facility] Work Phone: Start: 03-16-2024 End: 03-16-2024 ambulatory Chente Conn Facility:[facility] Start: 03-08-2024 End: 03-08-[address] Chente Conn MD -Laboratory, Specimen Work Phone: Start: 03-08-2024 End: 03-08-2024 ambulatory Chente Conn Facility:[facility] Start: 02-24-2024 End: 03-24-2024 ambulatory Chente Conn Facility:[facility] Start: 02-24-2024 End: 03-24-[address] Chente Conn MD -Laboratory, Specimen Work Phone: Start: 2024 ambulatory Chente Conn Facilit y:[facility] Start: 2024 Non-patient / Non-visit Dr. Torey Weber MD -[facility] Start: 2024 End: 2024 Emergency department patient visit Dr. Racquel Moss DO -Emergency Department Work Phone: Start: 01-27-2024 End: 02-22-[address] Chente Conn MD -Laboratory, Specimen Work Phone: Start: 01-27-2024 End: 02-22-2024 ambulatory Chente Conn Facility:[facility] Start: 01-14-2024 End: 01-14-2024 ambulatory Chente Conn Facility:[facility] Start: 01-04-2024 ambulatory Michael Posadas Facility:[facility] Start: 01-04-2024 End: 01-10-2024 Evaluation and management of inpatient Michael Posadas Facility:[facility] Start: 12-28-2023 End: 12-28-2023 ambulatory Chente Conn Facility:[facility] Start: 11-29-2023 End: 11-29-2023 ambulatory Chente Conn Facility:[facility] Start: 10-29-2023 End: 10-29-2023 ambulatory Chente Conn Facility:[facility] Start: 09-30-2023 End: 10-01-2023 ambulatory Chente Conn Facility:[facility] Start: 09-15-2023 End: 09-15-2023 ambulatory Stefan Bri Facility:[facility] [place] Start: 09-10-2023 End: 09-10-2023 ambulatory Chente Conn Facility:[facility] Start: 09-06-2023 End: 09-06-2023 ambulatory Torey Huffman Facility:[facility] Start: 06-14-2023 End: 06-14-[address] Chente Conn Work Phone: [facility] Work Phone: Start: 06-14-2023 End: 06-14-[address] Chente Conn Work Phone: [facility]-Laboratory, Specimen Work Phone: Start: 05-17-2023 End: 05-17-[address] Chente Conn Work Phone: [facility] Work Phone: Start: 05-17-2023 End: 05-17-[address] Chente Conn [facility] Start: 04-19-2023 End: 04-19-[address] Chente Conn Work Phone: [facility] Work Phone: Start: 04-19-2023 End: 04-19-[address] Chente Conn [facility] Phone[facility] Work [facility]: Start: 04-13-2023 End: 04-13-2023 Emergency department patient visit Dr. Chente Conn Work Phone: [facility]-Emergency Department Work Phone: Start: 03-25-2023 Non-patient / Non-visit Dr. Chente Conn Work Phone: [facility] Work Phone: Start: 03-25-2023 Non-patient / Non-visit Dr. Chente Conn Work Phone: [facility] Start: 03-25-2023 Dr. Chente canales Work Phone: [facility] Start: 03-24-2023 Non-patient / Non-visit Dr. Chente Conn Work Phone: [facility] Work Phone: Start: 03-24-2023 Dr. Chente canales Work Phone: [facility] Work Phone: Start: 03-24-2023 Non-patient / Non-visit Dr. Chente Conn Work Phone: [facility] Start: 03-24-2023 Dr. Chente canales Work Phone: [facility] Start: 03-23-2023 Non-patient / Non-visit Dr. Chente Conn Work Phone: [facility] Work Phone: Start: 03-23-2023 End: 03-25-2023 Evaluation and management of inpatient Dr. Chente Conn Work Phone: [facility]-Intensive Care Unit Work Phone: Start: 03-23-2023 End: 03-25-2023 Dr. Chente Conn [facility] Phone[facility] Work [facility]: Start: 03-02-2023 End: 03-02-[address] Chente Conn Work Phone: [facility]-Pulmonary Medicine [facility] Work Phone: Start: 03-02-2023 End: 03-02-2023 Dr. Chente Conn Work Phone: [facility]-Pulmonary Medicine [facility] Work Phone: Start: 03-01-2023 End: 03-01-[address] Chente Conn Work Phone: [facility] Work Phone: Start: 03-01-2023 End: 03-01-[address] Chente Conn [facility] Phone: [facility] Work [facility]: Start: 03-01-2023 End: 03-01-2023 Dr. Chente Conn Work Phone: [facility] Work [facility]: Start: 02-03-2023 End: 02-03-[address] Chente Conn Work Phone: [facility] Work Phone: Start: 02-03-2023 End: 02-03-[address] Chente Conn [facility] Phone: [facility] Work [facility]: Start: 02-03-2023 End: 02-03-2023 Dr. Chente Conn [facility] Phone: [facility] Work [facility]: Start: 01-16-2023 End: 01-16-2023 Emergency department patient visit Dr. Chente Conn Work Phone: [facility]-Emergency Department Work Phone: Start: 01-16-2023 End: 01-16-2023 Dr. Chente Conn Work Phone: [facility]-Emergency Department Work Phone: Start: 01-04-2023 End: 01-04-[address] Chente Conn Work Phone: [facility]-Laboratory, Specimen Work Phone: Start: 01-04-2023 End: 01-04-2023 Dr. Chente Conn Work Phone: [facility]-Laboratory, Specimen Work Phone: Start: 12-13-2022 Non-patient / Non-visit Dr. Chente Conn Work Phone: [facility] Work Phone: Start: 12-13-2022 Dr. Chente canales Work Phone: [facility] Work Phone: Start: 12-12-2022 Non-patient / Non-visit Dr. Chente Conn Work Phone: [facility] Start: 12-12-2022 Dr. Chente canales Work Phone: [facility] Start: 12-12-2022 Non-patient / Non-visit Dr. Chente Conn Work Phone: [facility] Work Phone: Start: 12-12-2022 Dr. Chente canales Work Phone: [facility] Work Phone: Start: 12-11-2022 Non-patient / Non-visit Dr. Chente Conn Work Phone: [facility] Work Phone: Start: 12-11-2022 Dr. Chente canales Work Phone: [facility] Work Phone: Start: 12-11-2022 Non-patient / Non-visit Dr. Chente Conn Work Phone: [facility] Start: 12-11-2022 Dr. Chente canales Work Phone: [facility] Start: 12-10-2022 End: 12-13-2022 Evaluation and management of inpatient Dr. Chente Conn Work Phone: [facility] Work Phone: Start: 12-10-2022 End: 12-13-2022 Dr. Chente Conn Work Phone: [facility] Work Phone: Start: 12-07-2022 End: 12-07-[address] Chente Conn Work Phone: [facility] Work Phone: Start: 12-07-2022 End: 12-07-[address] Chente Conn Work Phone: [facility] Work Phone: Start: 12-07-2022 End: 12-07-2022 Dr. Chente Conn Work Phone: [facility] Work Phone: Start: 11-12-2022 End: 11-12-[address] Chente Conn Work Phone: [facility] Work Phone: Start: 11-05-2022 Non-patient / Non-visit Dr. Chente Conn Work Phone: [facility] Work Phone: Start: 11-04-2022 Non-patient / Non-visit Dr. Chente Conn Work Phone: [facility] Work Phone: Start: 11-03-2022 Non-patient / Non-visit Dr. Chente Conn Work Phone: [facility] Work Phone: Start: 11-02-2022 Non-patient / Non-visit Dr. Chente Conn Work Phone: [facility] Work Phone: Start: 11-01-2022 Non-patient / Non-visit Dr. Chente Conn Work Phone: [facility] Work Phone: Start: 10-31-2022 Non-patient / Non-visit Dr. Chente Conn Work Phone: [facility] Work Phone: Start: 10-30-2022 Non-patient / Non-visit Dr. Chente Conn Work Phone: [facility] Work Phone: Start: 10-29-2022 Non-patient / Non-visit Dr. Chente Conn Work Phone: [facility] Work Phone: Start: 10-28-2022 Non-patient / Non-visit Dr. Chente Conn Work Phone: [facility] Work Phone: Start: 10-27-2022 Non-patient / Non-visit Dr. Chente Conn Work Phone: [facility] Work Phone: Start: 10-27-2022 End: 11-05-2022 Evaluation and management of inpatient Dr. Chente Conn Work Phone: [facility]-Intensive Care Unit Work Phone: Start: 10-14-2022 End: 10-14-[address] Chente Conn Work Phone: [facility] Work Phone: Start: 10-14-2022 End: 10-14-[address] Chente Conn Work Phone: [facility] Work Phone: Start: 09-17-2022 End: 09-17-[address] Chente Conn Work Phone: [facility]-Pulmonary Medicine [facility] Work Phone: Start: 09-14-2022 End: 09-14-[address] Chente Conn Work Phone: [facility] Work Phone: Start: 09-14-2022 End: 09-14-[address] Chente Conn Work Phone: [facility] Work Phone: Start: 08-17-2022 End: 08-17-2022 ambulatory [facility] Work Phone: Start: 08-17-2022 End: 08-17-2022 [facility] Work [facility]: Start: 07-22-2022 End: 07-22-2022 [facility] encounter procedure [facility] Work [facility]: Start: 06-30-2022 Telephone encounter Stoma Ther apy Work Phone: Colorectal Surgery Comment on above: Stoma Consult Start: 06-22-2022 End: 06-23-2022 Emergency department patient visit Dr. Chente Conn Work Phone: [facility] Work Phone: Start: 06-22-2022 End: 06-23-2022 Dr. Chente Conn Work Phone: [facility]-Emergency Department Start: 06-15-2022 End: 06-16-2022 ambulatory CHENTE Emil [place] Facility:[facility] Start: 06-15-2022 End: 06-15-2022 Nursing evaluation of patient and report [facility] Work Phone: Colorectal Surgery Comment on above: Attention to colosto my (HCC) (Primary Dx) Start: 06-12-2022 End: 06-12-2022 Emergency department patient visit Dr. Chente Conn Work Phone: [facility]-Emergency Department Start: 06-12-2022 End: 06-12-2022 Dr. Chente Conn Work Phone: [facility]-Emergency Department Start: 06-01-2022 End: 06-21-2022 Discharged Recurring [facility] Work [facility]: Start: 06-01-[address] Chente Conn Work Phone: [facility] Start: 06-01-2022 End: 06-21-2022 Dr. Chente Conn Work Phone: [facility] Start: 05-06-2022 End: 05-06-2022 ambulatory I MAURICIO LEAVITT Facility:[facility] Start: 05-06-2022 End: 05-06-2022 [facility] I Mauricio Leavitt MD Work Phone: Colorectal Surgery Comment on above: Functional disorder of stomach (Primary Dx) Start: 05-04-2022 End: 05-22-[address] Chente Conn Work Phone: [facility] Work Phone: Start: 05-04-2022 End: 05-22-[address] Chente Conn Work Phone: [facility] Start: 05-04-2022 End: 05-22-2022 Dr. Chente Conn Work Phone: [facility] Start: 04-14-2022 Telephone encounter I Mauricio rothman MD Work Phone: Colorectal Surgery Comment on above: Patient Update; Radha ent Question Patient Update Start: 04-01-2022 Non-patient / Non-visit Dr. Chente Conn Work Phone: [facility] Start: 04-01-2022 Dr. Chente canales Work Phone: [facility] Start: 03-31-2022 Non-patient / Non-visit Dr. Chente Conn Work Phone: [facility] Start: 03-31-2022 Dr. Chente canales Work Phone: [facility] Start: 03-31-2022 Non-patient / Non-visit Dr. Chente Conn Work Phone: [facility] Start: 03-31-2022 Dr. Chente canales Work Phone: [facility] Start: 03-30-2022 Non-patient / Non-visit Dr. Chente Conn Work Phone: [facility] Start: 03-30-2022 Dr. Chente canales Work Phone: [facility] Start: 03-30-2022 Non-patient / Non-visit Dr. Chente Conn Work Phone: [facility] Start: 03-30-2022 Dr. Chente canales Work Phone: [facility] Start: 03-29-2022 Non-patient / Non-visit Dr. Chente Conn Work Phone: [facility] Start: 03-29-2022 Dr. Chente canales Work Phone: [facility] Start: 03-29-2022 Non-patient / Non-visit Dr. Chente Conn Work Phone: [facility] Start: 03-29-2022 Dr. Chente canales Work Phone: [facility] Start: 03-29-2022 Non-patient / Non-visit Dr. Chente Conn Work Phone: [facility] Start: 03-29-2022 Dr. Chente canales Work Phone: [facility] Start: 03-28-2022 Non-patient / Non-visit Dr. Chente Conn Work Phone: [facility] Start: 03-28-2022 Dr. Chente canales Work Phone: [facility] Start: 03-27-2022 Non-patient / Non-visit Dr. Chente Conn Work Phone: [facility] Start: 03-27-2022 Dr. Chente acnales Work Phone: [facility] Start: 03-26-2022 Non-patient / Non-visit Dr. Chente Conn Work Phone: [facility] Start: 03-26-2022 Dr. Chente canales Work Phone: [facility] Start: 03-25-2022 Non-patient / Non-visit Dr. Chente Conn Work Phone: [facility] Start: 03-25-2022 Dr. Chente canales Work Phone: [facility] Start: 03-25-2022 Non-patient / Non-visit Dr. Chente Conn Work Phone: [facility] Start: 03-25-2022 Dr. Chente canales Work Phone: [facility] Start: 03-24-2022 Non-patient / Non-visit Dr. Chente Conn Work Phone: [facility] Start: 03-24-2022 End: 04-01-2022 Evaluation and management of inpatient Dr. Chente Conn [facility] Phone[facility] Start: 03-24-2022 End: 04-01-2022 Dr. Chente Conn Work Phone: [facility] Start: 03-23-2022 End: 03-24-[address] Chente Conn Work Phone: [facility] Work Phone: Start: 03-23-2022 End: 03-24-[address] Chente Conn Work Phone: [facility] Start: 03-23-[address] Chente Conn Work Phone: [facility] Start: 03-23-2022 End: 03-24-2022 Dr. Chente Conn Work Phone: [facility] Start: 02-24-2022 End: 02-24-2022 Emergency department patient visit Dr. Chente Conn Work Phone: [facility]-Emergency Department Start: 02-24-2022 End: 02-24-2022 Dr. Chente Conn Work Phone: [facility]-Emergency Department Start: 02-06-2022 End: 02-21-[address] Chente Conn Work Phone: [facility] Work Phone: Start: 02-06-2022 End: 02-21-[address] Chente Conn [facility] Phone[facility] Start: 02-06-2022 End: 02-21-2022 Dr. Chente Conn Work Phone: [facility] Start: 01-06-2022 End: 01-06-[address] Chente Conn Work Phone: [facility] Start: 01-06-2022 End: 01-06-2022 Dr. Chente Conn Work Phone: [facility] Start: 01-05-2022 End: 01-21-[address] Chente oCnn Work Phone: [facility] Work Phone: Start: 01-05-2022 End: 01-21-[address] Chente Conn Work Phone: [facility]-Laboratory, Specimen Start: 01-05-2022 End: 01-21-2022 Dr. Chente Conn Work Phone: [facility] Start: 12-19-2021 End: 12-19-[address] Chente Conn [facility] Phone: [facility] Start: 12-19-2021 End: 12-19-2021 Dr. Chente Conn Work Phone: [facility] Start: 12-08-2021 End: 12-22-[address] Chente Conn Work Phone: [facility] Work Phone: Start: 12-08-2021 End: 12-22-[address] Chente Conn Work Phone: [facility]-Laboratory, Specimen Start: 12-08-2021 End: 12-22-2021 Dr. Chente Conn Work Phone: [facility]-Laboratory, Specimen Start: 12-05-2021 Non-patient / Non-visit Dr. Chente Conn Work Phone: [facility] Start: 12-05-2021 Dr. Chente canales Work Phone: [facility] Start: 12-04-2021 Non-patient / Non-visit Dr. Chente Conn Work Phone: [facility] Start: 12-04-2021 Dr. Chente canales Work Phone: [facility] Start: 12-03-2021 Non-patient / Non-visit Dr. Chente Conn Work Phone: [facility] Start: 12-03-2021 [facility] Start: 12-03-2021 Non-patient / Non-visit Dr. Chente Conn Work Phone: [facility] Start: 12-03-2021 Dr. Chente canales Work Phone: [facility] Start: 12-02-2021 Non-patient / Non-visit Dr. Chente Conn Work Phone: [facility] Start: 12-02-2021 Dr. Chente canales Work Phone: [facility] Start: 12-01-2021 Non-patient / Non-visit Dr. Chente Conn Work Phone: [facility] Start: 12-01-2021 Dr. Chente canales Work Phone: [facility] Start: 12-01-2021 Non-patient / Non-visit Dr. Chente Conn Work Phone: [facility] Start: 12-01-2021 Dr. Chente canales Work Phone: [facility] Start: 12-01-2021 End: 12-05-2021 Non-patient / Non-visit Dr. Chente Conn Work Phone: [facility] Start: 11-30-2021 End: 12-05-2021 Evaluation and management of inpatient Dr. Chente Conn Work Phone[facility] Start: 11-30-2021 End: 12-05-2021 Dr. Chente Conn Work Phone[facility] Start: 11-03-2021 End: 11-21-[address] Chente Conn Work Phone: [facility] Start: 09-11-2021 Non-patient / Non-visit Dr. Chente Conn Work Phone: [facility] Start: 09-11-2021 End: 09-11-[address] Chente Conn Work Phone[facility] Start: 09-10-2021 End: 09-21-[address] Chente Conn Work Phone: [facility] Start: 09-10-[address] Chente Conn Work Phone: [facility] Start: 08-19-2021 End: 08-19-[address] Chente Conn Work Phone: [facility] Start: 08-12-2021 End: 08-12-[address] Chente Conn Work Phone: [facility] Start: 08-08-2021 End: 08-08-[address] Chente Conn Work Phone: [facility] Start: 07-16-2021 End: 07-16-[address] Chente Conn Work Phone: [facility] Start: 07-11-2021 End: 07-22-[address] Chente Conn Work Phone: [facility] Start: 06-11-2021 End: 06-21-[address] Chente oCnn Work Phone: [facility] Start: 05-30-2021 End: 05-30-[address] Chente Conn Work Phone: [facility]-Cat Scan, [facility] Start: 05-20-2021 End: 05-20-[address] Chente Conn Work Phone[facility] Start: 05-19-2021 End: 05-19-2021 Emergency department patient visit Dr. Chente Conn Work Phone: [facility]-Emergency Department Start: 05-13-2021 End: 05-22-[address] Chente Conn Work Phone: [facility] Start: 04-28-2021 End: 04-28-[address] Chente Conn Work Phone: [facility] Start: 04-21-2021 End: 04-21-[address] Chente Conn Work Phone: [facility] Start: 04-15-2021 End: 04-15-[address] Chente Conn Work Phone: [facility]-Pulmonary Medicine [facility] Start: 03-25-2021 End: 04-21-[address] Chente Conn Work Phone: [facility] Start: 02-24-2021 End: 03-24-[address] Chente Conn Work Phone[facility] Start: 01-28-2021 End: 02-21-[address] Chente Conn Work Phone: [facility]-Laboratory, Specimen Procedures Date Procedure Procedure Detail Performing Clinician Start: 07-26-2024 X-ray of knee, one or two views Chente cooper MD Start: 06-26-2024 Follicle stimulating hormone measurement Dr. Chente Conn MD Work Phone: Comment on above: FEMALE:Follicular: 1.4 - 18.1 mIU/mLMidc ycle: 3.4 - 33.4 mIU/mLLuteal: 1.5 - 9.1 mIU/mLPost Menopause: 23.0 - 116.3 mIU/mLMALE: 1.4 - 18.1 mIU/mL NORMAL REFERENCE RANGES FEMALE FOLLICULAR 2.3 - 12.6 mIU/mL MID-CYCLE PEAK 5.2 - 17.5 mIU/mL LUTEAL 1.7 - 12.9 mIU/mL POST-MENOPAUSAL ON MHT 5.9 - 72.8 mIU/mL NOT ON MHT 12.7 - 132.2 mlU/mL MALE 0.7 - 10.8 mIU/mL Start: 06-26-[address] Chente Conn MD Work Phone: Comment on above: FEMALE:Follicular: 1.9-12.5 mIU/mLMidcyc le: 8.7-76.3 mIU/mLLuteal: 0.5-16.9 mIU/mLPost Menopause: 15.9-54.0 mIU/mLMALE:20-70 Years: 1.5-9.3 mIU/mL>70 Years: 3.1-34.6 mIU/mL Start: 06-26-[address] Chente Conn MD Work Phone: Start: 06-26-2024 Vitamin D, 25-hydroxy measurement Dr. Areli Conn MD Work Phone: Comment on above: Vitamin D StatusDeficiency: <20 ng/mL (5 0nmol/L)Insufficiency: 20-30 ng/mL (50-75 nmol/L)Sufficiency: 30-100 ng/mL (75-250 nmol/L)Toxicity: >100 ng/mL (>250 nmol/L) Start: 06-26-2024 Drug screen quantitative phenobarbital Dr. Chente Conn MD Work Phone: Comment on above: Detection Limit = 3Performed at: [address] [id number] Director: Berry Gonzalez PhD, Phone: [phone] Start: 06-26-2024 Total iron binding capacity measurement Dr. Chente Conn MD Work Phone: Start: 05-09-[address] Chente Conn MD Work Phone: Start: 05-09-[address] Chente jerez MD Work Phone: Start: 04-25-2024 Dual energy X-ray absorptiometry Dr. Darwin Conn MD Work Phone: Start: 04-03-2024 Measurement of renal function Dr. Chente jerez MD Work Phone: Comment on above: GFR Calc Start: 03-16-2024 X-ray of knee, one or two views Dr. Chente Conn MD Work Phone: Start: 03-08-2024 Measurement of renal function Dr. Chente jerez MD Work Phone: Comment on above: GFR Calc Start: 2024 MRI of lower extremity Dr. Chente Conn MD Work Phone: Start: 2024 X-ray of knee, one or two views Dr. Chente Conn MD Work Phone: Start: [address] Chente Conn MD Work Phone: Start: 04-13-2023 CT angiography of chest with contrast Dr. Chente Conn Work Phone: Start: 03-23-2023 Bacteria identified in Blood by Culture Dr. Chente Conn Work Phone: Start: 03-23-[address] Chente Conn Work Phone: Start: 03-23-[address] Chente oCnn Work Phone: Start: 03-23-2023 Plain chest X-ray Dr. Chente Conn Work Phone: Start: 01-16-2023 Plain chest X-ray Dr. Chente Conn Work Phone: Start: 01-16-2023 Bacteria identified in Blood by Culture Dr. Chente Conn Work Phone: Start: 01-16-2023 SARS-CoV-2 & FLU Antigen (Rapid) Dr. Darwin Conn Work Phone: Start: 01-16-[address] Chente Conn Work Phone: Start: 01-16-[address] Chente Conn Work Phone: Start: 01-16-2023 Dr. Chente Conn Work Phone: Start: 12-11-[address] Chente mosquera Work Phone: Start: 12-10-2022 Plain chest X-ray Dr. Chente Conn Work Phone: Start: 12-10-2022 Computed tomography of abdomen and pelvis with intravenous contrast Dr. Chente Conn Work Phone: Start: 06-22-2022 Plain chest X-ray Dr. Chente Conn Work Phone: Start: 06-22-2022 Bacteria identified in Blood by Culture Start: 06-22-2022 Urine culture Start: 06-12-2022 SARS-CoV-2 & FLU Antigen (Rapid) Dr. Darwin Conn Work Phone: Start: 06-12-2022 Plain chest X-ray Dr. Chente Conn Work Phone: Start: 03-29-2022 Computed tomography of abdomen and pelvis with intravenous contrast Dr. Chente Conn Work Phone: Start: 03-29-2022 Plain chest X-ray Dr. Chente Conn Work Phone: Start: 03-27-2022 Plain X-ray abdomen Dr. Chente Conn Work Phone: Start: 03-26-2022 Plain chest X-ray Dr. Chente Conn Work Phone: Start: 03-24-2022 Plain X-ray abdomen Dr. Chente Conn Work Phone: Start: 03-24-2022 Plain chest X-ray Dr. Chente Conn Work Phone: Start: 02-24-2022 Plain chest X-ray Dr. Chente Conn Work Phone: Start: 12-01-2021 Plain chest X-ray Dr. Chente Conn Work Phone: Start: 12-01-2021 Plain X-ray abdomen Dr. Chente Conn Work Phone: Start: 11-30-2021 CT angiography of chest with contrast Dr. Chente Conn Work Phone: Start: 11-30-2021 Plain chest X-ray Dr. Chente Conn Work Phone: Start: 05-30-2021 CT of soft tissues of neck with contrast Dr. Chente Conn Work Phone: Start: 05-20-2021 Diagnostic radiography of abdomen Dr. Areli Conn Work Phone: Start: 04-28-2021 Investigation of transfusion reaction Dr. Chente Conn Work Phone: Start: 04-28-[address] Chente jerez Work Phone: Start: 04-05-2018 H/O: surgery Status post insertion [...] End: 07-04-2014 Documentation of current medications Jacek Eli Bello Work Phone: Bacteria identified in Blood by Culture Dr. Chente Conn Work Phone: Investigation of tra nsfusion reaction Dr. Chente Conn Work Phone: Investigation of tra nsfusion reaction Dr. Chente Conn Work Phone: Investigation of tra nsfusion reaction Dr. Chente Conn Work Phone: Respiratory microbial culture Dr. Chente Conn Work Phone: Respiratory microbial culture Dr. Chente Conn Work Phone: Respiratory microbial culture Dr. Chente Conn Work Phone: Respiratory Panel (PCR) Dr. Chente Conn Work Phone: Respiratory Panel (PCR) Dr. Chente Conn Work Phone: Respiratory Panel (PCR) Dr. Chente Conn Work Phone: SARS-CoV-2 & FLU Antigen (Rapid) Dr. Chente Conn Work Phone: SARS-CoV-2 & FLU Antigen (Rapid) Dr. Chente Conn Work Phone: Dr. Chente Estrada er Work Phone: Dr. Chente Estrada er Work Phone: Dr. Chente Estrada er Work Phone: Dr. Chente Estrada er Work Phone: Plan of Treatment Date Care Activity Detail Author Start: 06-26-2024 Insulin-like growth factor [Moles/volume] in Serum or Plasma [facility] Start: 06-26-2024 Prolactin measurement [facility] Start: 06-26-2024 Testosterone measurement [facility] Start: 04-13-2023 Venous catheter care management [facility] Start: 04-13-2023 End: 04-13-2023 [facility] Start: 04-13-2023 [facility] Start: 03-25-2023 Patient discharge [facility] Start: 03-24-2023 Referral to service [facility] Start: 03-24-2023 CBC W Auto Differential panel - Blood [facility] Start: 03-24-2023 [facility] Start: 03-23-2023 Following clinical pathway protocol [facility] Start: 03-23-2023 Assessment of risk of venous thromboembolism [facility] Start: 03-23-2023 Consultation [facility] Start: 03-23-2023 Consultation for treatment [facility] Start: 03-23-2023 Inhalation therapy procedure [facility] Start: 03-23-2023 Insertion of catheter into peripheral vein [facility] Start: 03-23-2023 Measuring intake and output [facility] Start: 03-23-2023 Oxygen therapy [facility] Start: 03-23-2023 Patient referral to dietitian [facility] Start: 03-23-2023 Providing care according to standard [facility] Start: 03-23-2023 Provision of activity privileges [facility] Start: 03-23-2023 Referral to service [facility] Start: 03-23-2023 Respiratory therapy [facility] Start: 03-23-2023 [facility] Start: 03-23-2023 Verification routine [facility] Start: 03-23-2023 Admission procedure [facility] Start: 03-23-2023 Bacteria identified in Blood by Culture Blood Culture [facility] Start: 03-23-2023 Bacteria identified in Urine by Culture [facility] Start: 03-23-2023 [facility] Start: 03-23-2023 End: 03-23-2023 Blood culture [facility] Start: 03-23-2023 End: 03-23-2023 [facility] Start: 01-16-2023 End: 01-16-2023 Blood culture [facility] Start: 01-16-2023 End: 01-16-2023 [facility] Start: 01-16-2023 Bacteria identified in Blood by Culture Blood Culture [facility] Start: 01-16-2023 Bacteria identified in Urine by Culture Urine Culture [facility] Start: 12-16-2022 Blood chemistry [facility] Start: 12-16-2022 Complete blood count [facility] Start: 12-15-2022 Blood chemistry [facility] Start: 12-15-2022 Complete blood count [facility] Start: 12-14-2022 Blood chemistry [facility] Start: 12-14-2022 Complete blood count [facility] Start: 12-13-2022 Patient discharge [facility] Start: 12-13-2022 Blood chemistry [facility] Start: 12-13-2022 Complete blood count [facility] Start: 12-12-2022 Blood chemistry [facility] Start: 12-12-2022 Complete blood count [facility] Start: 12-12-2022 [facility] Start: 12-11-2022 Referral to service [facility] Start: 12-10-2022 Ambulation without limitation [facility] Start: 12-10-2022 Assessment of risk of venous thromboembolism [facility] Start: 12-10-2022 Inhalation therapy procedure [facility] Start: 12-10-2022 Insertion of catheter into peripheral vein [facility] Start: 12-10-2022 Oxygen therapy [facility] Start: 12-10-2022 Providing care according to standard [facility] Start: 12-10-2022 Referral to service [facility] Start: 12-10-2022 [facility] Start: 12-10-2022 Following clinical pathway protocol [facility] Start: 12-10-2022 Verification routine [facility] Start: 12-10-2022 Admission procedure [facility] Start: 12-10-2022 Hospital admission, emergency, from emergency room, medical nature [facility] Start: 12-10-2022 [facility] Start: 12-10-2022 Patient referral to dietitian [facility] Start: 11-05-2022 Patient discharge [facility] Start: 11-04-2022 [facility] Start: 10-29-2022 [facility] Start: 10-28-2022 Respiratory therapy [facility] Start: 10-27-2022 End: 10-28-2022 [facility] Start: 10-27-2022 Care planning and problem solving actions [facility] Start: 10-27-2022 Respiratory therapy [facility] Start: 10-27-2022 Elevation of head of bed [facility] Start: 10-27-2022 Mouth care [facility] Start: 10-27-2022 Notification of physician [facility] Start: 10-27-2022 Tracheostomy care [facility] Start: 10-27-2022 Airway suction technique [facility] Start: 10-27-2022 Oxygen therapy [facility] Start: 10-27-2022 Assessment of risk of venous thromboembolism [facility] Start: 10-27-2022 Insertion of catheter into peripheral vein [facility] Start: 10-27-2022 Measuring intake and output [facility] Start: 10-27-2022 Physiotherapy of chest [facility] Start: 10-27-2022 Providing care according to standard [facility] Start: 10-27-2022 Vital signs measurements [facility] Start: 10-27-2022 Admission procedure [facility] Start: 10-27-2022 [facility] Start: 06-22-2022 End: 06-22-2022 Blood culture [facility] Start: 06-22-2022 End: 06-22-2022 [facility] Start: 06-12-2022 [facility] Start: 04-01-2022 Venous catheter care management [facility] Start: 04-01-2022 Patient discharge [facility] Start: 03-30-2022 Referral to ear, nose and throat service [facility] Start: 03-29-2022 Referral to general surgeon [facility] Start: 03-28-2022 [facility] Start: 03-27-2022 Care planning and problem solving actions [facility] Start: 03-27-2022 Referral to occupational therapist [facility] Start: 03-26-2022 Consultation [facility] Start: 03-25-2022 Referral to service [facility] Start: 03-25-2022 Airway suction technique [facility] Start: 03-25-2022 Oxygen therapy [facility] Start: 03-25-2022 End: 03-26-2022 [facility] Start: 03-25-2022 Care planning and problem solving actions [facility] Start: 03-25-2022 [facility] Start: 03-24-2022 [facility] Start: 03-24-2022 Following clinical pathway protocol [facility] Start: 03-24-2022 Assessment of risk of venous thromboembolism [facility] Start: 03-24-2022 Catheterization of vein [facility] Start: 03-24-2022 Consultation [facility] Start: 03-24-2022 Inhalation therapy procedure [facility] Start: 03-24-2022 Insertion of catheter into peripheral vein [facility] Start: 03-24-2022 Measuring intake and output [facility] Start: 03-24-2022 Patient referral to [facility] Start: 03-24-2022 Providing care according to standard [facility] Start: 03-24-2022 Referral to service [facility] Start: 03-24-2022 [facility] Start: 03-24-2022 Admission procedure [facility] Start: 03-24-2022 End: 03-24-2022 Blood culture [facility] Start: 03-24-2022 Patient referral to [facility] Start: 02-22-2022 DEPRESSION ASSESSMENT DEPRESSION ASSESSMENT [facility] Start: 12-05-2021 Patient discharge [facility] Start: 12-04-2021 [facility] Start: 12-03-2021 Referral to service [facility] Start: 12-03-2021 Consultation [facility] Start: 12-02-2021 Referral to general surgeon [facility] Start: 12-02-2021 Physiotherapy of chest [facility] Start: 12-01-2021 [facility] 11-30-[facility]21 Following clinical pathway protocol [facility] Start: 11-30-2021 Transfusion of blood product [facility] Start: 11-30-2021 Assessment of risk of venous thromboembolism [facility] Start: 11-30-2021 Consultation [facility] Start: 11-30-2021 Insertion of catheter into peripheral vein [facility] Start: 11-30-2021 Measuring intake and output [facility] Start: 11-30-2021 Oxygen therapy [facility] Start: 11-30-2021 Providing care according to standard [facility] Start: 11-30-2021 Referral to occupational therapist [facility] Start: 11-30-2021 Referral to service [facility] Start: 11-30-2021 [facility] Start: 11-30-2021 Verification routine [facility] Work Phone: Start: 11-30-2021 Admission procedure [facility] Start: 11-30-2021 CT angiography of chest with contrast CTA Chest W/WO Contrast [facility] Work Phone: Start: 11-30-2021 CTA Chest vessels WO and W contrast IV [facility] Work Phone: Start: 11-30-2021 End: 12-01-2021 [facility] Start: 10-23-2021 Influenza vaccination INFLUENZA (#1) [facility] Start: 10-15-2018 Hemoglobin A1c/Hemoglobin.total in Blood HBA1C [facility] Start: 08-27-2017 End: 08-27-2017 Appointment [facility] Work Phone: Start: 08-28-2016 End: 08-28-2016 Appointment Appointment [facility] Work Phone: Start: 08-28-2016 End: 08-28-2016 *BMP *BMP [facility] Work Phone: Start: 08-28-2016 End: 08-28-2016 BNP *Brain Natriuretic Peptide BNP [facility] Work Phone: Start: 08-28-2016 End: 08-28-2016 GRINDER SET UP OPERATOR CENTERLESS GRINDER SET UP OPERATOR CENTERLESS [facility] Work Phone: Start: 08-28-2016 End: 08-28-2016 Follow Up Appt 1 year Follow Up Appt 1 year [facility] Work Phone: Start: 05-27-2016 End: 05-28-2016 aPTT *PTT-Partial Thromboplastin Time [facility] Work Phone: Start: 05-27-2016 End: 05-28-2016 CBC W Auto Differential panel - Blood *CBC [facility] Work Phone: Start: 05-27-2016 End: 05-28-2016 Coagulation factor induced.INR assay in platelet poor plasma *PT/INR [facility] Work Phone: Start: 01-08-2016 End: 01-08-2016 Bacterica wound culture *Culture and Sensitivity, wound [facility] Work Phone: Start: 04-12-2012 Hepatitis B screening URINE ALBUMIN:CREATININE RATIO [facility] Start: 04-08-2012 Hepatitis B surface antibody level LDL CHOLESTEROL [facility] Start: 04-08-2012 PNEUMOCOCCAL (2 - PCV) PNEUMOCOCCAL (2 - PCV) [facility] Start: 2001 Urine microalbumin profile DTAP,TDAP,TD (1 - Tdap) [facility] Start: 02-01-2000 ANNUAL PCP TEAM CHRONIC DISEASE VISIT ANNUAL PCP TEAM CHRONIC DISEASE VISIT [facility] Start: 02-01-2000 HIV SCREENING HIV SCREENING [facility] Start: 02-01-1992 3 comp foot exam completed DIABETIC FOOT EXAM [facility] Start: 02-01-1992 Hepatitis C antibody, confirmatory test DILATED RETINAL EXAM [facility] Start: 1982 COVID-19 VACCINE (#1) COVID-19 VACCINE (#1) [facility] Start: 1982 HEPATITIS B (1 of 3 - 3-dose series) HEPATITIS B (1 of 3 - 3-dose series) [facility] 24 hour urine calciu m output measurement [facility] Alanine aminotransfe rase [Enzymatic activity/volume] in Serum or Plasma [facility] Alanine aminotransfe rase [Enzymatic activity/volume] in Serum or Plasma [facility] Albumin [Mass/volume ] in Serum or Plasma [facility] Albumin [Mass/volume ] in Serum or Plasma [facility] Alkaline phosphatase [Enzymatic activity/volume] in Serum or Plasma [facility] Alkaline phosphatase [Enzymatic activity/volume] in Serum or Plasma [facility] Anion gap measurement [facility] Anion gap measurement [facility] Anion gap measurement [place] [facility] Anion gap measurement [facility] Anion gap measurement [facility] Anion gap measurement [facility] Anion gap measurement [facility] Aspartate aminotrans ferase [Enzymatic activity/volume] in Serum or Plasma [facility] Aspartate aminotrans ferase [Enzymatic activity/volume] in Serum or Plasma [facility] Bacteria identified in Blood by Culture Blood Culture [facility] Bacteria identified in Sputum by Respiratory culture [facility] Work Phone: Bacteria identified in Sputum by Respiratory culture [facility] Bilirubin, total measurement [facility] Bilirubin, total measurement [facility] BUN/Creatinine ratio [facility] BUN/Creatinine ratio [facility] BUN/Creatinine ratio [facility] BUN/Creatinine ratio [facility] BUN/Creatinine ratio [facility] BUN/Creatinine ratio [facility] BUN/Creatinine ratio [facility] Calcium [Mass/volume ] in Serum or Plasma [facility] Calcium [Mass/volume ] in Serum or Plasma [facility] Calcium [Mass/volume ] in Serum or Plasma [facility] Calcium [Mass/volume ] in Serum or Plasma [facility] Calcium [Mass/volume ] in Serum or Plasma [facility] Calcium [Mass/volume ] in Serum or Plasma [facility] Calcium [Mass/volume ] in Serum or Plasma [facility] Carbon dioxide, tota l [Moles/volume] in Serum or Plasma [facility] Carbon dioxide, tota l [Moles/volume] in Serum or Plasma [facility] Carbon dioxide, tota l [Moles/volume] in Serum or Plasma [facility] Carbon dioxide, tota l [Moles/volume] in Serum or Plasma [facility] Carbon dioxide, tota l [Moles/volume] in Serum or Plasma [facility] Carbon dioxide, tota l [Moles/volume] in Serum or Plasma [facility] Carbon dioxide, tota l [Moles/volume] in Serum or Plasma [facility] Chloride [Moles/volu me] in Serum or Plasma [facility] Chloride [Moles/volu me] in Serum or Plasma [facility] Chloride [Moles/volu me] in Serum or Plasma [facility] Chloride [Moles/volu me] in Serum or Plasma [facility] Chloride [Moles/volu me] in Serum or Plasma [facility] Chloride [Moles/volu me] in Serum or Plasma [facility] Chloride [Moles/volu me] in Serum or Plasma [facility] Creatinine [Moles/vo lume] in Serum or Plasma [facility] Creatinine [Moles/vo lume] in Serum or Plasma [facility] Creatinine [Moles/vo lume] in Serum or Plasma [facility] Creatinine [Moles/vo lume] in Serum or Plasma [facility] Creatinine [Moles/vo lume] in Serum or Plasma [facility] Creatinine [Moles/vo lume] in Serum or Plasma [facility] Creatinine [Moles/vo lume] in Serum or Plasma [facility] Erythrocyte mean corpuscular volume determination [facility] Glucose [Mass/volume ] in Serum or Plasma [facility] Glucose [Mass/volume ] in Serum or Plasma [facility] Glucose [Mass/volume ] in Serum or Plasma [facility] Glucose [Mass/volume ] in Serum or Plasma [facility] Glucose [Mass/volume ] in Serum or Plasma [facility] Glucose [Mass/volume ] in Serum or Plasma [facility] Glucose [Mass/volume ] in Serum or Plasma [facility] Hematocrit [Volume Fraction] of Blood [facility] Hematocrit [Volume Fraction] of Blood [facility] Hematocrit [Volume Fraction] of Blood [facility] Hematocrit [Volume Fraction] of Blood [facility] Hematocrit [Volume Fraction] of Blood [facility] Hematocrit [Volume Fraction] of Blood [facility] Hematocrit [Volume Fraction] of Blood [facility] Hemoglobin [Mass/vol ume] in Blood [facility] Hemoglobin [Mass/vol ume] in Blood [facility] Hemoglobin [Mass/vol ume] in Blood [facility] Hemoglobin [Mass/vol ume] in Blood [facility] Hemoglobin [Mass/vol ume] in Blood [facility] Hemoglobin [Mass/vol ume] in Blood [facility] Hemoglobin [Mass/vol ume] in Blood [facility] Insulin-like growth factor [Moles/volume] in Serum or Plasma [facility] Lactic acid measurement [facility] Leukocytes [#/volume ] in Blood [facility] Leukocytes [#/volume ] in Blood [facility] Leukocytes [#/volume ] in Blood [facility] Leukocytes [#/volume ] in Blood [facility] Leukocytes [#/volume ] in Blood [facility] Leukocytes [#/volume ] in Blood [facility] Leukocytes [#/volume ] in Blood [facility] Mean corpuscular hem oglobin concentration determination [facility] Mean corpuscular hem oglobin concentration determination [facility] Mean corpuscular hem oglobin concentration determination [facility] Mean corpuscular hem oglobin concentration determination [facility] Mean corpuscular hem oglobin concentration determination [facility] Mean corpuscular hem oglobin concentration determination [facility] Mean corpuscular hem oglobin concentration determination [facility] Mean corpuscular hem oglobin determination [facility] Mean corpuscular hem oglobin determination [facility] Mean corpuscular hem oglobin determination [facility] Mean corpuscular hem oglobin determination [facility] Mean corpuscular hem oglobin determination [facility] Mean corpuscular hem oglobin determination [facility] Mean corpuscular hem oglobin determination [facility] Measurement of renal function [facility] Measurement of renal function [facility] Measurement of renal function [facility] Measurement of renal function [facility] Measurement of renal function [facility] Measurement of renal function [facility] Measurement of renal function [facility] Microscopic observat ion [Identifier] in Unspecified specimen by Gram stain Gram Stain [facility] Work Phone: Neutrophil count [facility] Neutrophil count [facility] Neutrophil percent differential count [facility] Neutrophil percent differential count [facility] Patient Education [facility] Work Phone: Patient referral [facility] Work Phone: Platelets [#/volume] in Blood [facility] Platelets [#/volume] in Blood [facility] Platelets [#/volume] in Blood [facility] Platelets [#/volume] in Blood [facility] Platelets [#/volume] in Blood [facility] Platelets [#/volume] in Blood [facility] Platelets [#/volume] in Blood [facility] Potassium [Moles/vol ume] in Serum or Plasma [facility] Potassium [Moles/vol ume] in Serum or Plasma [facility] Potassium [Moles/vol ume] in Serum or Plasma [facility] Potassium [Moles/vol ume] in Serum or Plasma [facility] Potassium [Moles/vol ume] in Serum or Plasma [facility] Potassium [Moles/vol ume] in Serum or Plasma [facility] Potassium [Moles/vol ume] in Serum or Plasma [facility] Prolactin measurement [facility] Red blood cell count [facility] Red blood cell count [facility] Red blood cell count [facility] Red blood cell count [facility] Red blood cell count [facility] Red blood cell count [facility] Red blood cell count [facility] Red cell distributio n width determination [facility] Red cell distributio n width determination [facility] Red cell distributio n width determination [facility] Red cell distributio n width determination [facility] Red cell distributio n width determination [facility] Red cell distributio n width determination [facility] Red cell distributio n width determination [facility] Respiratory Culture Respiratory Culture [facility] Work Phone: Respiratory pathogen s DNA and RNA 12b panel - Unspecified specimen by YAYO with probe detection [facility] Serum testosterone measurement [facility] Sodium [Moles/volume ] in Serum or Plasma [facility] Sodium [Moles/volume ] in Serum or Plasma [facility] Sodium [Moles/volume ] in Serum or Plasma [facility] Sodium [Moles/volume ] in Serum or Plasma [facility] Sodium [Moles/volume ] in Serum or Plasma [facility] Sodium [Moles/volume ] in Serum or Plasma [facility] Sodium [Moles/volume ] in Serum or Plasma [facility] Testosterone Free [Mass/volume] in Serum or Plasma [facility] Testosterone measurement [facility] Total protein measurement [facility] Total protein measurement [facility] Urea nitrogen [Mass/ volume] in Serum or Plasma [facility] Urea nitrogen [Mass/ volume] in Serum or Plasma [facility] Urea nitrogen [Mass/ volume] in Serum or Plasma [facility] Urea nitrogen [Mass/ volume] in Serum or Plasma [facility] Urea nitrogen [Mass/ volume] in Serum or Plasma [facility] Urea nitrogen [Mass/ volume] in Serum or Plasma [facility] Urea nitrogen [Mass/ volume] in Serum or Plasma [facility] Work Phone: [facility] Immunizations Immunization Date Immunization Notes Care Provider [facility] 01-09-2021 influenza, injectabl e, quadrivalent, preservative free Dr. Chente Conn Work Phone: [facility] 01-09-2021 influenza, seasonal, injectable Dr. Chente Conn Work Phone: [facility] 04-03-2020 Covid (Moderna) Dr. Chente cooper Work Phone: [facility] 02-06-[address] Chente Conn Work Phone: [facility] 12-11-[address] Chente Conn Work Phone: [facility] 01-20-[address] Chente Conn Work Phone: [facility] 02-19-2017 influenza, injectabl e, quadrivalent, preservative free Dr. Chente Conn Work Phone: [facility] 02-19-2017 influenza, seasonal, injectable Dr. Chente Conn Work Phone: [facility] 12-23-2015 influenza, injectabl e, quadrivalent, preservative free Dr. Chente Conn Work Phone: [facility] 12-23-2015 influenza, seasonal, injectable Dr. Chente Conn Work Phone: [facility] 11-08-2014 influenza, injectabl e, quadrivalent, preservative free LELIA Leavitt MD Work Phone: [facility] 01-15-2014 influenza, injectabl e, quadrivalent, preservative free Dr. Chente Conn Work Phone: [facility] 01-15-2014 influenza, seasonal, injectable Dr. Chente Conn Work Phone: [facility] 12-14-2012 influenza virus vacc ine, unspecified formulation LELIA Leavitt MD Work Phone: [facility] 11-22-[address] Darwin Conn Work Phone: [facility] Work Phone: 11-22-2012 pneumococcal vaccine , unspecified formulation Dr. Chente Conn Work Phone: [facility] 04-08-2011 influenza virus vacc ine, unspecified formulation LELIA Leavitt MD Work Phone: [facility] 04-08-2011 pneumococcal polysaccharide vaccine, 23 valent LELIA Leavitt MD Work Phone: [facility] Payers Date Payer Category Payer Unknown [id number] 2023 Self-pay [id number] 2020 Medicare [id number] 2020 Medicare MEDICARE MEDICAR E A AND B [id number] 2020-Present [phone] [place] [address] Medicare [id number] 2018 Medicaid MEDICAID [facility] MEDICAID [id number] 2018-Present [phone] [address] [place] [address] Medicaid [id number] 2018 Unknown SAVANNAH MORSE PPO [id number] 2018-Present [phone] [id number] PPO [id number] 2016 Medicaid [id number] 2016 Unknown [id number] Unknown [id number] 2.16.840.1.064142.3.579.2.462 Unknown [id number] 2.16.840.1.468459.3.579.2.462 Unknown [id number] 2.16.840.1.071417.3.579.2.462 Unknown [id number] 2.16.840.1.014533.3.579.2.462 Unknown [id number] 2.16.840.1.720097.3.579.2.462 Unknown [id number] 2.16.840.1.910271.3.579.2.462 Unknown [id number] 2.16.840.1.722312.3.579.2.462 Unknown [id number] 2.16.840.1.818391.3.579.2.462 Unknown [id number] 2.16.840.1.609105.3.579.2.462 Unknown [id number] 2.16.840.1.105036.3.579.2.462 Unknown [id number] 2.16.840.1.946084.3.579.2.462 Unknown [id number] 2.16.840.1.209673.3.579.2.462 Unknown [id number] 2.16.840.1.798779.3.579.2.462 Unknown [id number] 2.16.840.1.004645.3.579.2.462 Unknown [id number] 2.16.840.1.594408.3.579.2.462 Unknown [id number] 2.16.840.1.899150.3.579.2.462 Unknown [id number] 2.16.840.1.637365.3.579.2.462 Unknown [id number] 2.16.840.1.423802.3.579.2.462 Unknown [id number] 2.16.840.1.998646.3.579.2.462 Unknown [id number] 2.16.840.1.373064.3.579.2.462 Unknown [id number] 2.16840.1.381859.3.579.2.462 Unknown [id number] 2.16.840.1.739369.3.579.2.462 Unknown [id number] 2.16840.1.539891.3.579.2.462 Unknown [id number] 2.16.840.1.281447.3.579.2.462 Unknown [id number] 2.16.840.1.051378.3.579.2.462 Unknown [id number] 2.16.840.1.505008.3.579.2.462 Unknown [id number] 2.16.840.1.173885.3.579.2.462 Unknown [id number] 2.16.840.1.087946.3.579.2.462 Unknown [id number] 2.16.840.1.917083.3.579.2.462 Unknown [id number] 2.16.840.1.223570.3.579.2.462 Unknown [id number] 2.16.840.1.729374.3.579.2.462 Unknown [id number] 2.16.840.1.576264.3.579.2.462 Unknown [id number] 2.16.840.1.396101.3.579.2.462 Unknown [id number] 2.16.840.1.927980.3.579.2.462 Unknown [id number] 2.16.840.1.265965.3.579.2.462 Unknown [id number] 2.16.840.1.244293.3.579.2.462 Unknown [id number] 2.16.840.1.462642.3.579.2.462 Unknown [id number] 2.16.840.1.462576.3.579.2.462 Unknown [id number] 2.16.840.1.690940.3.579.2.462 Unknown [id number] 2.16840.1.902929.3.579.2.462 Unknown [id number] 2.16840.1.455253.3.579.2.462 Unknown [id number] 2.16840.1.631608.3.579.2.462 Unknown [id number] 2.16840.1.761907.3.579.2.462 Social History Date Type Detail Facility Start: 05-19-2021 End: 01-16-2023 Tobacco smoking status NHIS Unknown if ever smoked [facility] Start: 04-25-2020 None [facility] Start: 04-25-2020 With Family [facility] Start: 07-08-2019 Non-smoker [facility] Start: 1980 Sex Assigned At Male [facility] Start: 2024 Tobacco smoking stat us MOIS Never smoked tobacco [facility] Start: 12-27-2019 Alcohol intake Not Asked [facility] Start: 1980 Sex Assigned At Not on file [facility] Start: 05-17-2024 End: 05-23-2024 Sex Male (finding) [facility] Medical Equipment Procedure Code Equipment Code Equipment Origin al Text Equipment Identifier Dates Catheter Ascenda 4fr .5mm Silicone 114cm 86cm Intrathecal 2 Piece Connector - [id number] Start: 04-05-2018 Pump Int Thcl 40 ml Snchr 2 Drg - [id number] Start: 03-08-2012 Pump Synchromed Ii 87.5in Titanium Silicone 26in Intrathecal [place] - [id number] Start: 04-05-2018 Tube Shiley 10.8 mm 6.4mm 6 76mm Tracheostomy Cuff Low Pressure Fenestrate - [id number] Start: 04-20-2018 Goals Date Patient Goal Desired Activity /State Functional Status Date Assessment Result Facility 03-25-2023 Functional status Bedrest [facility] Work Phone: 03-25-2023 Functional status Fair [facility] Work Phone: 12-13-2022 Functional status Bedrest [facility] Work Phone: 12-11-2022 Functional status Bedrest [facility] Work Phone: 11-05-2022 Functional status Chair [facility] Work Phone: 04-01-2022 Functional status Bedrest [facility] Work Phone: 03-31-2022 Functional status None [facility] Work Phone: 12-05-2021 Functional status With Assist of 2 [facility] Work Phone: 12-04-2021 Functional status Bedrest [facility] Work Phone: 12-03-2021 Functional status None [facility] Work Phone: Mental Status Date Assessment Result Facility 03-25-2023 Cognitive function Passive [facility] Work Phone: 03-24-2023 Cognitive function Voice/Name [facility] Work Phone: 12-13-2022 Cognitive function Voice/Name [facility] Work Phone: 12-13-2022 Cognitive function Dependent [facility] Work Phone: 12-11-2022 Cognitive function Voice/Name [facility] Work Phone: 11-05-2022 Cognitive function Voice/Name [facility] Work Phone: 06-12-2022 Cognitive function Awake;Alert;Appropriat e [facility] Work Phone: 04-01-2022 Cognitive function Voice/Name [facility] Work Phone: 03-31-2022 Cognitive function Demonstrates ability to follow instructions/comprehend [facility] Work Phone: 12-05-2021 Cognitive function Voice/Name [facility] Work Phone: 12-03-2021 Cognitive function Remote Impaired [facility] Work Phone: Clinical Notes 07-15-2018 to 07-27-2024 Note Date & Type Note Facility 07-27-2024 Radiology Diagnostic study note [facility] Imaging Services [address] [place] [address] Knee 1 or 2 Views MR#: [id number] Acct: [id number] Name: KRISS MICHAEL Rep #: [id number] : 1980 M 44 From: Manuel Bernabe MD PCP: Dr. Chente Conn MD Status: RE G CLI Study:Knee 1 or 2 Views Date of Exam: Exam# [id number] Ordering Dr: Gabrielle Quinones MD PROCEDURE: KNEE 1 OR 2 VIEWS 07/26/2024 REASON FOR EXAM: FX LEFT MEDIAL FEMUR CONDYLE TECHNIQUE: 2 obliquely views of the left knee were obtained. COMPARISON: Left knee, 03/16/2024. FINDINGS: There is osteopenia of the bones about the knee. There is no acute fracture identified. The knee joint spaces are difficult to evaluate due to the nonstandard projections. Knee joint effusion can not be evaluated. There are no soft tissue abnormalities. RAD/Knee 1 or 2 Views IMPRESSION: No fractures are evident. The knee is difficult to evaluate due to the nonstandard projections. Reading Location: [id number] CC: Dr. Chente Conn MD; Dr. Roddy Quinones MD ~ [employer] Programmer: Signed [facility] Work Phone: 06-15-2024 Evaluation note Diagnosis Onset Date Resolution Osteoporosis chronic June 15, 2024 1:47pm [facility] Work Phone: 1(817) 874-358902-11-2025 Evaluation note* Diagnosis Onset Date Resolution Status Admit Date Chronic respiratory failure chronic April 04, 2024 1:01pm [facility] Work Phone: [phone]) 127-828802-11-2025 Evaluation note* Diagnosis Onset Date Resolution Status Admit Date Chronic respiratory failure chronic April 04, 2024 1:01pm Osteoporosis chronic June 15, 2024 1:47pm [facility] Work Phone: 1(440) 512-787402-20-2024 Discharge summary Author Anthony Russell [facility] April 13, 2023 4:08pm Note Date/Time April 13, 2023 12:41pm [facility] Medical Records Department [address] [place] [address] Emergency Department Summary 04/13/23 MR#: [id number] Acct: [id number] Name: KRISS MICHAEL Rep #:[id number] : 1980 43 From: Anthony Russell MD PCP: Dr. hCente Conn MD Status:RE G ER Location: ED HPI History of Present Illness Chief Complaint: Shortness of Breath Detail of Chief Complaint: Patient is nonverbal. Both parents present giving the history. Informant: parent Onset/Context/Timing Onset: Today and Hours Context: sudden Timing: Continuous Current Severity: Moderate Maximum Severity: Moderate Worsened by: Nothing Relieved by: Nothing Associated Symptoms Negative for cough Chest Pain: Positive for None Narrative Narrative: 43-year-old male extensive past medical history including cerebral palsy, anemia, prior aspiration pneumonia, tracheostomy and vent dependent, PE in 2019 for which she was on blood thinners for about 6 months and has not been on them since. History of seizures and GI bleed. Patient is cared for by his parents at home. He does not speak or ambulate. His heart rate jumped up to around 140today around 1030. It is as high as 160s currently. His pulse ox remained in the mid 90s at home. No recent illness. No recent fever. No recent vomiting last several days. He was admitted to the hospital about 3 weeks ago for a possible aspiration pneumonia. PE Risk Factors: Positive for Prior DVT or PE and Recent immobilization; Negative for Cancer, OCP + Smoking + > 35, Recent surgery or Recent travel Prior similar symptoms: Yes Recent Illness/Hospitalization: Yes [facility] Medical History Acute dyspnea Anemia in chronic illness Anxiety Aspiration pneumonia Cerebral palsy Cerebral palsy Chronic respiratory failure Chronic respiratory failure with hypoxia Colostomy prolapse Debility Edema GERD (gastroesophageal reflux disease) History of seizure disorder Iron deficiency anemia Non-smoker Nonrheumatic mitral valve prolapse Obesity On home oxygen therapy Pseudomonas pneumonia Pulmonary embolism Pulmonary embolism on left (06/14/19) Redundant colon Seizures Thrombocytopenia Tracheostomy in place Upper GI bleeding (04/2020) Home Medications phenobarbital 20 mg/5 mL (4 mg/mL) oral elixir 60 mg G-tube 0830,2100 SEIZURES 02/19/17 [History Last Taken 03/23/23] metoclopramide HCl 5 mg/5 mL oral solution 10 mg feeding tube 0830,1600,2100 STOMACH 09/16/18 [History Last Taken 03/23/23] Cough Assist 1 dose .Route .MEDSUPPLY assist in clearing secretions 12/25/18 [History Last Taken 03/23/23] oxygen concentrator 1 dose .Route .MEDSUPPLY second unit, 4 LPM cont all modalities 12/25/18 [History Last Taken Unknown] gabapentin 250 mg/5 mL oral solution 500 mg G-tube 0000,0600,1200,1800 SEIZURES 09/26/19 [History Last Taken 03/23/23] albuterol sulfate 2.5 mg/3 mL (0.083 %) solution for nebulization 2.5 mg inhalation Q4H PRN Sob &/Or Wheezing 11/27/20 [History Last Taken Unknown] lactose-reduced food with fiber 0.06 gram-1.2 kcal/mL oral liquid 1,000 ml G- tube DAILY NUTRITION 11/27/20 [History Last Taken 03/23/23] plecanatide 3 mg tablet 3 mg G-tube 0830 BOWELS 11/27/20 [History Last Taken 03/23/23] doxazosin 2 mg tablet 2 mg PO 0830 BLOOD PRESSURE 11/30/21 [History Last Taken 03/23/23] cholecalciferol (vitamin D3) 10 mcg/mL (400 unit/mL) oral drops 15 mcg feeding tube 0830 SUPPLEMENT 03/24/22 [History Last Taken 03/23/23] guaifenesin 200 mg/5 mL oral liquid 200 mg feeding tube 0830 PRN COUGH/CONGESTION 03/24/22 [History Last Taken Unknown] acetaminophen 650 mg/20.3 mL oral suspension 650 mg feeding tube 0000,0600,1200,1800 PRN PAIN 10/24/22 [History Last Taken Unknown] aluminum-mag hydroxide-simethicone 200 mg-200 mg-20 mg/5 mL oral susp 5 ml PO 0000,0600,1200,1800 PRN ANTACID 10/24/22 [History Last Taken Unknown] cetirizine 1 mg/mL oral solution 10 mg feeding tube 1600 ALLERGIES 10/24/22 [History Last Taken 03/22/23] baclofen 20 mg tablet 20 mg feeding tube Q6H MUSCLE SPASMS 12/10/22 [History Last Taken 03/23/23] ondansetron 4 mg disintegrating tablet 4 mg PO Q8H PRN NAUSEA/VOMITING #30 tabs 12/13/22 [Rx Last Taken Unknown] lorazepam 2 mg/mL injection solution (Ativan) 1 mg IM DAILY PRN AGITATION 03/02/23 [History Last Taken Unknown] montelukast 4 mg oral granules in packet (Singulair) 4 mg PO DAILY ASTHMA #30 ea 03/02/23 [Rx Last Taken Unknown] esomeprazole magnesium 40 mg granules delayed release for susp (Nexium Packet) 40 mg G-tube BID ACID REFLUX 03/23/23 [History Last Taken 03/23/23] ipratropium 0.5 mg-albuterol 3 mg (2.5 mg base)/3 mL nebulization soln 3 ml inhalation Q4H PRN SOB &/OR WHEEZING 03/23/23 [History Last Taken Unknown] Allergy/AdvReac Type Severity Reaction Status Date / Time chlorhexidine Allergy Rash Verified 04/13/23 12:11 cisapride monohydrate Allergy Rash Verified 04/13/23 12:11 [From Propulsid] house dust Allergy NEEDS Verified 04/13/23 12:11 FOLLOW-UP metronidazole [From Flagyl] Allergy Rash Verified 04/13/23 12:35 codeine AdvReac hallucinati Verified 04/13/23 12:11 ons morphine AdvReac Hallucinati Verified 04/13/23 12:11 ons Family History Mother Hepatitis C Hypertension HIV disease Father H/O heart artery stent CAD (coronary artery disease) Atrial fibrillation Hypertension Esophageal cancer Surgical History Colostomy in place Heel cord lengthening History of colostomy History of eye surgery History of gastrostomy tube placement History of open reduction and internal fixation (ORIF) procedure History of soft tissue release Status post insertion of intrathecal baclofen pump Social History household members: family housing: house current occupational status: disabled Smoking Status: Never smoker alcohol intake: never substance use type: does not use caffeine: No ROS ROS ED ROS Narrative No recent illness. Possible aspiration pneumonia admitted for 3 weeks ago. Patient is unable to give any history himself due to he is nonverbal. Parents are filling in the information. Review of Systems ROS Unobtainable: due to mental status and other Details: Patient is nonverbal. EXAM Physical Exam Narrative Exam Narrative: 43-year-old male vital signs he is tachycardic in the 163 range. He is on mechanical vent and has a tracheostomy. He has a right-sided Mediport with a peripheral IV. H EENT exam unremarkable. Mytrex membranes. Neck nontender. Anterior tracheostomy. Lungs diminished breath sounds bilaterally. No obvious rales, rhonchi or wheezing. Equal symmetrical. Heart tachycardic rate of 163. No appreciable murmur. Chest wall and ribs nontender. Abdomen soft. Nondistended. He has a left-sided colostomy with brown stool filling the colostomy bag. He has a hernia around his colostomy site which is all chronic. No peritoneal signs. Upper extremities are nontender without edema. Lower extremities have gross atrophy of the musculature and extremities. He is nonweightbearing. There is no significant swelling. Neurologically his eyes are open. He does not speak. He is not following commands. Const Vital Signs: 04/13/23 12:11 04/13/23 12:18 04/13/23 12:19 Temperature 98.1 F Temperature Source Temporal Pulse Rate 150 H 162 H Respiratory Rate 32 H 32 H Respiratory Effort Labored Respiratory Pattern Tachypnea Blood Pressure 143/120 H 113/82 H Blood Pressure Mean 127 92 Pulse Ox 95 96 Oxygen Delivery Method Nasal Cannula Mechanical Ventilator Mechanical Ventilator Oxygen Flow Rate (L/min) 3.5 04/13/23 12:40 04/13/23 13:08 04/13/23 15:03 Temperature 99.6 F H Temperature Source Axillary Pulse Rate 120 H 98 Respiratory Rate 17 29 H Respiratory Effort Respiratory Pattern Blood Pressure 102/76 120/76 Blood Pressure Mean 84 90 Pulse Ox 95 92 96 Oxygen Delivery Method Mechanical Ventilator Nasal Cannula Mechanical Ventilator Oxygen Flow Rate (L/min) 3.5 04/13/23 15:06 Temperature 98.1 F Temperature Source Temporal Pulse Rate 98 Respiratory Rate 29 H Respiratory Effort Respiratory Pattern Blood Pressure 120/76 Blood Pressure Mean 90 Pulse Ox 96 Oxygen Delivery Method Mechanical Ventilator Oxygen Flow Rate (L/min) Positive well nourished and well developed; Negative for cachectic or contractures General Appearance ED: well developed and pallor; Negative for cachectic, contractures or NAD Nutritional Appearance: Negative for cachectic HEENT Reports moist mucous membranes; Denies dry mucous membranes atraumatic; Negative for trauma or tenderness Mouth ED: No dry mucous membranes Mouth: No dry mucous membranes Eyes PERRL and EOMs intact bilaterally General Eye ED: Negative for pale conjunctiva or scleral icterus Neck no lymphadenopathy, supple, no meningeal signs and no JVD General: Negative for tenderness Lymph Lymphatic: Negative for other Resp No normal respiratory effort and clear to auscultation bilaterally Resp Narrative: Diminished breath sounds bilaterally. Increased respiratory rate. Increased heart rate. Auscultation: diminished lung sounds; Negative for rales, rhonchi or wheezes Cardio regular rhythm, S1 normal heart sound, S2 normal heart sound and no murmurs; Negative for regular rate Rate: tachycardic Rhythm: Negative for abnormal rhythm GI non-tender, non-distended and no masses GI Narrative: Left lower quadrant colostomy. Brown stool in the colostomy bag. Pericolostomyhernia. No obstruction. Auscultation: normoactive bowel sounds Palpation: soft; Negative for tender, guarding or rebound tenderness present Extremity Negative for normal to inspection Extremity Narrative: Chronic atrophy of both lower extremities. No edema or cords. Neuro Neuro Narrative: Eyes are open. Nonverbal. Not following commands. Sensorium / Orientation: alert and orientation impaired; Negative for oriented to person, oriented to place or oriented to time Motor Exam: Negative for strength 5/5 throughout Psych Negative for mental status grossly normal Skin no wounds and skin turgor normal General Skin Exam: pallor; Negative for jaundice Lesions: no lesions Rashes: no rashes MDM MDM MDM Narrative Medical decision making narrative: 43-year-old male suffers from severe cerebral palsy with a history of pulmonary emboli and prior aspiration pneumonia with a recent admission about 3 weeks ago for possible aspiration. Today presents with accelerated heart rate and respiratory rate. Respiratory and cardiac workup will be performed. Parents wanted me to give him some Ativan for sedation. CTA of the chest will be obtained for evaluation for possible PE which she has had before but is currently on no blood thinners and has not been for years. Versus an aspirationpneumonia or effusion excetra. Multiple repeat exams the most recent at 4 PM patient is doing well. Currently his heart rates in the 90s. Blood pressure 120/76. Pulse ox 96%. Clinically looks much better his parents agree the Ativan made him significantly improved. They are comfortable with him being discharged home. He is receiving half a liter normal saline bolus prior to discharge. History & Record Review Discussion w/independent historian: Patient Additional record(s) reviewed:: Prior inpatient record, Prior outpatient record,Prior ED visit and Prior labs Lab Data Attestation: I reviewed the patient's lab results. Lab results narrative: CBC shows a white count of 7. H&H of 12 and 40. Platelets 216. PT/INR 13 and 1. PTT 25. D-dimer less than 0.27. Electrolytes show gap of 10. BUN 19 creatinine 0.4. Glucose 116. Troponin less than 3. CTA chest showed no PE. No pneumonia. Labs: Laboratory Results - last 24 hr 04/13/23 12:15 WBC 7.9 RBC 4.85 Hgb 12.4 L Hct 40.2 MCV 82.9 MCH 25.6 L MCHC 30.8 L RDW Std Deviation 44.8 H RDW Coeff of Emilee 14.9 H Plt Count 216 MPV 10.2 Immature Gran % (Auto) 0.300 Neut % (Auto) 44.2 L Lymph % (Auto) 43.5 H Rabun % (Auto) 7.8 Eos % (Auto) 3.7 Baso % (Auto) 0.5 Absolute Neuts (auto) 3.5 Absolute Lymphs (auto) 3.45 Nucleated RBC % 0 PT 13.3 INR 1.0 APTT 25.7 D-Dimer Quant (PE/DVT) < 0.27 L Sodium 137 Potassium 4.0 Chloride 103 Carbon Dioxide 24.0 Anion Gap 10 BUN 19 H Creatinine 0.48 L Estim Creat Clear Calc 176.92 Est GFR (MDRD) Af Amer 248 Est GFR (MDRD) Non-Af 205 BUN/Creatinine Ratio 39.7 H Glucose 116 H Calcium 9.2 Troponin I High Sens < 3 L Radiography Diagnostic Testing: Clinical Impression(s) from Imaging Studies Chest CTA 04/13/23 12:31 IMPRESSION: No evidence of pulmonary embolism. Once again, there is evidence of a nonspecific geographic areas of groundglass appearance involving both lungs. This may represent mild degree of chronic inflammation. No focal pulmonary infiltrate is seen. Electronically Signed: Matti Greer MD at 13:48 EST , Rhythm Strip Rhythm Strip: Sinus Tach Rate: 165 Ectopy: None EKG Initial EKG: Attestation: I personally reviewed and interpreted this EKG as follows: Interpretation: Sinus Tachycardia Comments: Sinus tachycardia rate of 165. Significant artifact very limited study and very difficult to interpret. Cannot rule out an SVT. There is no obvious signs of ST elevation or significant ischemia. Discharge Plan Triage Chief Complaint: Shortness of Breath ED Provider: Anthony Russell Dx/Rx/DC Orders Clinical Impression: History of cerebral palsy, Anxiety, Tachycardia, History of aspiration pneumonia, History of pulmonary embolism Instructions: ED Anxiety Reaction, ED Tachycardia: PAT Prescriptions: No Action albuterol sulfate 2.5 mg /3 mL (0.083 %) solution for nebulization 2.5 mg inhalation Q4H PRN (Reason: Sob &/Or Wheezing) montelukast [Singulair] 4 mg granules in packet 4 mg PO DAILY Qty: 30 11RF Patient Comments: NEW RX THAT HAS NOT BEEN STARTED metoclopramide HCl 5 mg/5 mL solution 10 mg feeding tube 0830,1600,2100 phenobarbital 20 MG/5 ML elixir 60 mg G-tube 0830,2100 Cough Assist 1 dose .Route .MEDSUPPLY Rx Instructions: Inspiratory and Expiratory times of 20-40 seconds with a 1-2 second pause. oxygen concentrator 1 dose .Route .MEDSUPPLY Rx Instructions: As directed lactose-reduced food with fibr 0.06 gram-1.2 kcal/mL liquid 1,000 ml G-tube DAILY Patient Comments: PER PT HOME MED LIST: JEVITY 1.2 BENNY/ML 4.5-5 CARTONS PER DAY. APPROXIMATELY 1 LITER PER DAY. 55ML/HOUR TO 65ML DURING THE DAY. SLOW THIS DOWN TO 45 ML/HOUR AT NIGHT. gabapentin 250 MG/5 ML solution 500 mg G-tube 0000,0600,1200,1800 Patient Comments: PER PT HOME MED LIST: GABAPENTIN DOSING -IF MO'S HEART RATE IS LOW I DON'T ALWAYS GIVE THE WHOLE 10ML GABAPENTIN DOSE MY GUIDES ARE: PULSE <50: I MIGHT WAIT 1 HOUR FOR HIM TO BE MORE AWAKE. GIVE 4 ML PULSE IN THE 50'S: GIVE 5ML OR 6 ML PULSE IN THE 60'S: GIVE 6ML TO 7ML PULSE 69>: GIVE THE WHOLE 10ML plecanatide 3 mg tablet 3 mg GT 0830 doxazosin 2 mg tablet 2 mg GT 0830 cholecalciferol (vitamin D3) 10 mcg/mL (400 unit/mL) drops 15 mcg feeding tube 0830 guaifenesin 200 mg/5 mL liquid 200 mg feeding tube 0830 PRN (Reason: COUGH/CONGESTION) alum-mag hydroxide-simeth 200-200-20 mg/5 mL suspension 5 ml PO 0000,0600,1200,1800 PRN (Reason: ANTACID) acetaminophen 650 mg/20.3 mL suspension 650 mg feeding tube 0000,0600,1200,1800 PRN (Reason: PAIN ) cetirizine 1 mg/mL solution 10 mg feeding tube 1600 lorazepam [Ativan] 2 mg/mL solution 1 mg IM DAILY PRN (Reason: AGITATION ) Rx Instructions: via g-tube baclofen 20 mg tablet 20 mg feeding tube Q6H ondansetron 4 mg tablet,disintegrating 4 mg PO Q8H PRN (Reason: NAUSEA/VOMITING) Qty: 30 0RF ipratropium-albuterol 0.5 mg-3 mg(2.5 mg base)/3 mL solution for nebulization 3 ml inhalation Q4H PRN (Reason: SOB &/OR WHEEZING) esomeprazole magnesium [Nexium Packet] 40 mg granules for susp in packet 40 mg G-tube BID Primary Care Provider: Chente Conn Referrals: Chente Conn MD [Primary Care Provider] - As Needed Activity Restrictions/Additional Instructions: Continue your current medications as prescribed. Ativan as needed for anxiety. Follow-up with your doctor as needed or return if worse. His labs today and CATscan were unremarkable. There is no signs of any blood clots. No signs of any pneumonia. Disposition Disposition: Home, Self Care What to do if you have Problems For any increased pain, shortness of breath, bleeding, nausea or vomiting, chestpain, or any unexpected problems, contact your Primary Care Provider. Call [facility] ([phone]) or report to the closest Emergency Room. Call 911 if necessary. 04/13/23 8937 <Electronically signed by Anthony Russell MD> Cosigner Signature (if applicable): CC: Dr. Chente Conn MD ~ Signed [facility] Work Phone: 1(288) 346-600302-01-2024 Discharge summary Author Camacho [facility] March 25, 2023 10:43am Note Date/Time March 25, 2023 1 0:40am [facility] Medical Records Department [address] [place] [address] Instructions for Home/Discharge Instructions 03/25/23 1035 MR#: [id number] Acct: [id number] Name: KRISS MICHAEL Rep #:[id number] : 1980 43 From: Camacho Gonzalez DO PCP: Dr. Chente Conn MD Status:AD M IN Discharge Instructions Diet Discharge Diet: - (N.p.o., resume nutrition and hydration through PEG tube) Activity Discharge Activity: Return to Normal Activity Follow Up Care Test Results: Test results from this visit will be discussed in further detail at your follow- up appointment, if applicable. Discharge Plan Admission Admit Date/Time: 03/23/23 16:33 Attending Provider: Camacho Gonzalez Primary Care Provider: Chente Conn Consulting Providers: Krishna Siddiqui; Jacek Monsalve; Yovanny Moreira; Mckinley Tristan; Cari Cavazos; Zackary Castro; Gris Hewitt; Patrice Langley; Goran Rose; Luis Mohr; Vito Bright; Luther Huggins; Lucia Dillard Instructions Additional Instructions / Restrictions: Resume previous oxygen settings and ventilator as before Discharge Orders/Prescriptions Prescriptions: Continued albuterol sulfate 2.5 mg /3 mL (0.083 %) solution for nebulization 2.5 mg inhalation Q4H PRN (Reason: Sob &/Or Wheezing) montelukast [Singulair] 4 mg granules in packet 4 mg PO DAILY Qty: 30 11RF Patient Comments: NEW RX THAT HAS NOT BEEN STARTED metoclopramide HCl 5 mg/5 mL solution 10 mg feeding tube 0830,1600,2100 phenobarbital 20 MG/5 ML elixir 60 mg G-tube 0830,2100 Cough Assist 1 dose .Route .MEDSUPPLY Rx Instructions: Inspiratory and Expiratory times of 20-40 seconds with a 1-2 second pause. oxygen concentrator 1 dose .Route .MEDSUPPLY Rx Instructions: As directed lactose-reduced food with fibr 0.06 gram-1.2 kcal/mL liquid 1,000 ml G-tube DAILY Patient Comments: PER PT HOME MED LIST: JEVITY 1.2 BENNY/ML 4.5-5 CARTONS PER DAY. APPROXIMATELY 1 LITER PER DAY. 55ML/HOUR TO 65ML DURING THE DAY. SLOW THIS DOWN TO 45 ML/HOUR AT NIGHT. gabapentin 250 MG/5 ML solution 500 mg G-tube 0000,0600,1200,1800 Patient Comments: PER PT HOME MED LIST: GABAPENTIN DOSING -IF MO'S HEART RATE IS LOW I DON'T ALWAYS GIVE THE WHOLE 10ML GABAPENTIN DOSE MY GUIDES ARE: PULSE <50: I MIGHT WAIT 1 HOUR FOR HIM TO BE MORE AWAKE. GIVE 4 ML PULSE IN THE 50'S: GIVE 5ML OR 6 ML PULSE IN THE 60'S: GIVE 6ML TO 7ML PULSE 69>: GIVE THE WHOLE 10ML plecanatide 3 mg tablet 3 mg GT 0830 doxazosin 2 mg tablet 2 mg GT 0830 cholecalciferol (vitamin D3) 10 mcg/mL (400 unit/mL) drops 15 mcg feeding tube 0830 guaifenesin 200 mg/5 mL liquid 200 mg feeding tube 0830 PRN (Reason: COUGH/CONGESTION) alum-mag hydroxide-simeth 200-200-20 mg/5 mL suspension 5 ml PO 0000,0600,1200,1800 PRN (Reason: ANTACID) acetaminophen 650 mg/20.3 mL suspension 650 mg feeding tube 0000,0600,1200,1800 PRN (Reason: PAIN ) cetirizine 1 mg/mL solution 10 mg feeding tube 1600 lorazepam [Ativan] 2 mg/mL solution 1 mg IM DAILY PRN (Reason: AGITATION ) Rx Instructions: via g-tube baclofen 20 mg tablet 20 mg feeding tube Q6H ondansetron 4 mg tablet,disintegrating 4 mg PO Q8H PRN (Reason: NAUSEA/VOMITING) Qty: 30 0RF ipratropium-albuterol 0.5 mg-3 mg(2.5 mg base)/3 mL solution for nebulization 3 ml inhalation Q4H PRN (Reason: SOB &/OR WHEEZING) esomeprazole magnesium [Nexium Packet] 40 mg granules for susp in packet 40 mg G-tube BID Referrals / Follow Up: Jacek Monsalve MD [Med Staff - Active Staff] - See Referral Note (Follow-up with pulmonary medicine as scheduled or within a month) Chente Conn MD [Primary Care Provider] - Disposition Disposition (needs filled in before D/C Order can be placed): Home Health Service 03/25/23 1043<Electronically signed by Camacho Gonzalez DO>Camacho Gonzalez DO CC: Dr. Krishna Siddiqui MD; Dr. Jacek Monsalve MD; Dr. Yovanny Moreira DO; Dr. Mckinley Tristan MD; Dr. Zackary Castro MD; Dr. Chente Conn MD; Dr. Gris Hewitt MD; Dr. Patrice Langley MD; Dr. Lucia Dillard MD; Dr. Goran Rose MD; Dr. Luis Mohr MD; Dr. Vito Bright MD; Dr. Luther Huggins MD; Dr. Cari Cavazos MD ~ Signed [facility] Work Phone: 1(976) 746-155702-01-2024 Progress note Author Jacek Monsalve [facility] March 25, 2023 9:12am Note Date/Time March 25, 2023 7 :06am [facility] Medical Records Department [address] [place] [address] Progress Note - Pulper Operator 03/25/2304 MR#: [id number] Acct: [id number] Name: KRISS MICHAEL Rep #:[id number] : 1980 43 From: Jacek Monsalve MD PCP: Dr. Chente Conn MD Status:AD M IN Location: ICU ICU09-1 Assessment & Plan Assessment/Plan (1) Chronic respiratory failure: QUALIFIERS: Respiratory failure complication: hypoxia and hypercapnia Qualified Code(s): J96.11 - Chronic respiratory failure with hypoxia; J96.12 - Chronic respiratory failure with hypercapnia (2) Cerebral palsy: QUALIFIERS: Cerebral palsy type: spastic quadriplegic Qualified Code(s): G80.0 - Spastic quadriplegic cerebral palsy (3) Emesis, persistent: PLAN: Plan RECOMMENDATIONS: 1. Continue baseline care ([facility] during the day) 2. Okay to advance tube feeds from my perspective 3. Okay to continue with baseline medications 4. Discontinue antibiotics if patient does well 5. Okay to discharge from a pulmonary perspective IMPRESSIONS: 1. Acute emesis with possible aspiration in the setting of chronic respiratory failure Concern for aspiration leading to worsening in chronic respiratory failure. Patient appears to have normalized at this time. Patient has responded well to Zofran and no emesis has been noted. Patient currently on aspiration antibiotics. These likely do not need to be continued on discharge. Would resume patient's normal routine. Okay to discharge from my perspective. Patient can follow-up in the office routinely as previously scheduled. 2. Cerebral palsy with spastic quadriplegia/seizure disorder/GERD/anemia/history of candidal esophagitis Complicates care, management, recovery and prognosis. Cultures are showing no growth to date. No need to hold baseline medications. Patient's blood counts are appropriate at this time, so no transfusions would be indicated. Subjective Subjective Patient did well overnight. Patient's tube feeds have been advanced to 20 cc/h and no nausea or vomiting has been noted. Patient has not had any significant hemodynamic issues. Patient able to tolerate baseline respiratory plan yesterday. Discussed with patient's mother at the bedside and she feels he is back to his baseline. Objective Data Objective Data Vital Signs: Vital Signs Temp Pulse Resp BP Pulse Ox O2 Del Method O2 Flow Rate 36.4 C L 59 L 12 100/70 94 Mechanical Ventilator 5 03/25/23 02:40 03/25/23 06:47 03/25/23 06:47 03/25/23 02:40 03/25/23 06:47 03/25/23 06:47 03/25/23 06:47 Oxygen Flow Rate (L/min) 5 Oxygen Delivery Method Mechanical Ventilator Weight: 79.4 kg Body Mass Index (BMI) 34.3 Intake & Output: Intake and Output for Last 24 Hours 03/23/23 03/24/23 03/25/23 23:59 23:59 23:59 Intake Total 774 / 774 2175.5 / 2175.5 906.67 / 906.67 Output Total 75 / 75 150 / 150 Balance 699 / 699 2025.5 / 2025.5 906.67 / 906.67 Lab / Micro Data Attestation: I reviewed the patient's lab results. Lab results narrative: No labs have been ordered for this morning 03/24/23 04:55 03/24/23 04:55 Micro: Microbiology 03/23/23 13:23 Urine, Catheterized Urine Culture - Preliminary Culture exhibits no growth. 03/23/23 12:55 Mucosa - Nose Respiratory Panel (PCR) - Final Physical Exam Const alert Constitutional Narrative: Alert, obese, nonverbal, lying comfortably in bed, no acute distress. HEENT normocephalic, head/scalp atraumatic and moist oral mucous membranes Eyes PERRL, EOMs intact bilaterally and conjunctivae normal Neck full ROM, no lymphadenopathy and supple Neck Narrative: Trach is clean, dry and intact. Lymph Lymphatic: no lymphadenopathy noted Chest inspection of chest normal Resp normal respiratory effort and no use of accessory muscles Effort and Inspection: Negative for actively coughing or uses accessory muscles Auscultation: Negative for rales, rhonchi or wheezes Cardio regular rate, regular rhythm, no murmurs and peripheral pulses 2+ throughout GI GI Narrative: Colostomy in place without issue, G-tube in place without issue. Patient's abdomen soft, nontender, nondistended. Significant bowel protrusion noted out of colostomy, but appears pink and healthy Back/Spine normal ROM Extremity normal to inspection, full ROM and no pedal edema Extremity Narrative: Significant contractions noted Skin no rashes or lesions noted Neuro Neuro Narrative: Appears to be at baseline neurologic status Charges/Coding Visit Charges Inpatient E&M: 21712 Subs Hosp L2 03/25/23 0912 <Electronically signed by Jacek Monsalve MD> Cosigner Signature (if applicable): CC: ~ Signed [facility] Work Phone: 1(913) 283-579601-31-2024 Progress note Author Camacho Gonzalez [facility] March 24, 2023 6:18pm Note Date/Time March 24, 2023 6 :15pm [facility] Medical Records Department [address] [place] [id number] Progress Note - Hospitalist 03/24/23 1809 MR#: [id number] Acct: [id number] Name: KRISS MICHAEL Rep #:[id number] : 1980 43 From: Camacho Gonzalez DO PCP: Dr. Chente Conn MD Status:AD M IN Location: ICU ICU09-1 Reason for Visit Reason for Visit: Diagnoses Acidosis, unspecified (03/23/23) Spastic quadriplegic cerebral palsy (03/23/23) Acute respiratory failure with hypoxia (03/23/23) Chronic respiratory failure with hypoxia (03/23/23) Chronic respiratory failure with hypercapnia (03/23/23) Cyclical vomiting syndrome unrelated to migraine (03/23/23) Subjective Subjective Patient was seen and examined today, I talked to the patient's mother and fatherwho are at the bedside and also discussed the case with critical care. Criticalcare does not feel the patient has aspiration pneumonia and in fact does not feel the patient had aspiration. His blood pressure this afternoon has been in the 80s systolic and I elected to give the patient some fluid over 3 hours. Patient remains on broad-spectrum antibiotics for now, patient's white blood cell count today was 6.9, his tube feedings will be resumed at a low rate. Objective Data Objective Data Vital Signs: Vital Signs Temp Pulse Resp BP Pulse Ox O2 Del Method O2 Flow Rate 97.0 F L 54 L 12 110/73 99 Nasal Cannula 4 03/24/23 17:38 03/24/23 17:42 03/24/23 17:38 03/24/23 17:42 03/24/23 17:38 03/24/23 17:38 03/24/23 17:38 Oxygen Flow Rate (L/min) 4 Oxygen Delivery Method Nasal Cannula Weight: 78.3 kg Body Mass Index (BMI) 33.7 Intake & Output: Intake and Output for Last 24 Hours 03/22/23 03/23/23 03/24/23 23:59 23:59 23:59 Intake Total 774 / 774 1867 / 1867 Output Total 75 / 75 150 / 150 Balance 699 / 699 1717 / 1717 Lab / Micro Data 03/24/23 04:55 03/24/23 04:55 Labs: Laboratory Results - last 24 hr 03/24/23 04:55: WBC 6.9, RBC 4.17 L, Hgb 10.8 L, Hct 35.2 L, MCV 84.4, MCH 25.9 L, MCHC 30.7 L, RDW Std Deviation 46.0 H, RDW Coeff of Emilee 14.9 H, Plt Count 181, MPV 10.4, Immature Gran % (Auto) 0.100, Neut % (Auto) 62.2, Lymph % (Auto) 25.6, Rabun % (Auto) 8.9, Eos % (Auto) 2.9, Baso % (Auto) 0.3, Absolute Neuts (auto) 4.3, Absolute Lymphs (auto) 1.76, Nucleated RBC % 0, Sodium 137, Potassium 3.6, Chloride 106, Carbon Dioxide 29.0, Anion Gap 2 L, BUN 18, Creatinine 0.24 L, Estim Creat Clear Calc 351.31, Est GFR (MDRD) Af Amer 547, Est GFR (MDRD) Non-Af 452, BUN/Creatinine Ratio 74.7 H, Glucose 91, Lactic Acid 0.5, Calcium 8.2 L, Total Bilirubin 0.30, AST 14 L, ALT 25, Alkaline [id number] H, Total Protein 7.5, Albumin 3.1 L, Globulin 4.4 H, Albumin/Globulin Ratio 0.7 L Micro: Microbiology 03/23/23 13:23 Urine, Catheterized Urine Culture - Preliminary Culture exhibits no growth. 03/23/23 12:55 Mucosa - Nose Respiratory Panel (PCR) - Final Physical Exam Const alert and no apparent distress Constitutional Narrative: Patient has evidence of developmental delay and mental retardation, he does not appear uncomfortable at this time Orientation / Consciousness: awake HEENT normocephalic, head/scalp atraumatic and moist oral mucous membranes Eyes PERRL, EOMs intact bilaterally and conjunctivae normal Neck no JVD and thyroid normal General: trachea midline Resp normal respiratory effort, no retractions, no use of accessory muscles and clearto auscultation bilaterally Auscultation: Negative for rales, rhonchi or wheezes Cardio regular rate, regular rhythm, S1 normal heart sound, S2 normal heart sound, no murmurs, no rub and no gallops GI normal to inspection, nondistended, normoactive bowel sounds, soft to palpation,non-tender and non-distended GI Narrative: PEG tube is in place Extremity Extremity Narrative: There is noted to be atrophy of the lower extremities Skin no rashes or lesions noted General Skin Exam: no breakdown Neuro CN's II-XII intact bilaterally Neuro Narrative: Patient is nonverbal Sensorium / Orientation: awake and alert Psych Psych Narrative: Evidence of cognitive impairment/mental retardation is noted, patient is nonverbal, he does respond to painful stimuli Assessment & Plan Assessment/Plan (1) Emesis, persistent: PLAN: Plan 1. Possible aspiration in the setting of chronic respiratory failure-patient's pulmonary status remained stable at this time, continue present treatment with empiric antibiotics, an attempt will be to place the patient on humidified oxygen during the day, he uses the ventilator at night. #2 cerebral palsy with spastic quadriplegia-complicates care, medical course, recovery, and prognosis #3 seizure disorder-patient will remain on his present medication #4 acute on chronic respiratory failure-patient was placed on his home vent whenhe was admitted through the emergency room last night Time spent by myself addressing the patient's medical issues, reviewing his data, and collaborating with patient's care team. 35 minutes Charges/Coding Visit Charges Inpatient E&M: 78964 Subs Hosp L2 03/24/238 <Electronically signed by Camacho Gonzalez DO> Cosigner Signature (if applicable): CC: ~ Signed [facility] Work Phone: 1(322) 600-913501-31-2024 Consult note Author Jacek Monsalve [facility] March 24, 2023 2:48pm Note Date/Time March 24, 2023 8 :48am [facility] Medical Records Department [address] [place] [address] Consultation - Pulper Operator 03/24/23805 MR#: [id number] Acct: [id number] Name: KRISS MICHAEL Rep #:[id number] : 1980 43 From: Jacek Monsalve MD PCP: Dr. Chente Conn MD Status:AD M IN Location: ICU ICU09-1 Assessment & Plan Assessment/Plan (1) Chronic respiratory failure: QUALIFIERS: Respiratory failure complication: hypoxia and hypercapnia Qualified Code(s): J96.11 - Chronic respiratory failure with hypoxia; J96.12 - Chronic respiratory failure with hypercapnia (2) Cerebral palsy: QUALIFIERS: Cerebral palsy type: spastic quadriplegic Qualified Code(s): G80.0 - Spastic quadriplegic cerebral palsy (3) Emesis, persistent: PLAN: Plan RECOMMENDATIONS: 1. Attempt resumption of baseline care (HME during the day) 2. Resume tube feeds slowly and evaluate for emesis 3. Okay to continue with baseline medications 4. Discontinue antibiotics if patient does well 5. Potential discharge later today if patient tolerates normal routine IMPRESSIONS: 1. Acute emesis with possible aspiration in the setting of chronic respiratory failure Concern for aspiration leading to worsening in chronic respiratory failure. Patient appears to have normalized at this time. Patient has responded well to Zofran and no emesis has been noted. Patient currently on aspiration antibiotics. Would resume patient's normal routine. If patient is able to tolerate this during the day, potential discharge later today would be appropriate. Doubt patient would require antibiotics given lack of hypoxia or increased secretions. 2. Cerebral palsy with spastic quadriplegia/seizure disorder/GERD/anemia/history of candidal esophagitis Complicates care, management, recovery and prognosis. If patient starts to have repeated emesis, evaluation for possible UTI versus recurrence of candidal esophagitis may be necessary. No need to hold baseline medications. Patient's blood counts are appropriate at this time, so no transfusions would beindicated. HPI Consult Data Date of Consult: 03/24/23 HPI Narrative HPI Narrative: KRISS MICHAEL is a 43 M, with past medical history listed below and well- known to me from the outpatient office, who presents to [facility] on 03/23/2023 secondary to recurrent episodes of emesis and concerns of aspiration. Patient reportedly was receiving trach care and had multiple episodes of emesis. Tracheal suctioning brought only back a scant amount of clear fluid. Patient had reportedly no sick contacts and had not had any prodromal symptoms. Patient's mother is reported the patient will occasionally have some decreased urine output, but has not noticed any foul orders or other issues. Patient's colostomy has been functioning appropriately. Patient has cerebral palsy and is nonverbal, so all information comes from the patient's mother. In the ER, patient was afebrile, but tachycardic at 149 bpm. Patient was requiring mechanical ventilation, but uses an HME at baseline. Laboratory data showed a white blood cell count of 13, hemoglobin of 13.1 and platelet count of 229. Coagulation studies were within normal limits. Chemistry showed an elevated bicarbonate of 26, but otherwise was grossly unremarkable except for a glucose of 123. Alkaline phosphatase was slightly elevated at 169 and lactate was noted to be 5.3. Chest x-ray showed no change compared to previous. Given concerns for aspiration, patient was initiated on antibiotics and admitted to the floor for further evaluation. Since being admitted to the floor, patient's mother reports that she feels he isback to baseline. Patient has been tolerating mechanical ventilation overnight without issues. No significant change in secretions or fevers been noted. Patient continues to have normal ostomy output. Discussion with the mother states the patient did not have any prodromal symptoms. Patient has not had anyexposure to people with gastroenteritis. There has been no significant change in medications or regimen. Patient's mother believes that he is interacting at his baseline and actively tracking people around the room. [facility] Medical History Acute dyspnea Anemia in chronic illness Anxiety Cerebral palsy Cerebral palsy Chronic respiratory failure Chronic respiratory failure with hypoxia Colostomy prolapse Debility Edema GERD (gastroesophageal reflux disease) History of seizure disorder Iron deficiency anemia Non-smoker Nonrheumatic mitral valve prolapse Obesity On home oxygen therapy Pseudomonas pneumonia Pulmonary embolism Pulmonary embolism on left (06/14/19) Redundant colon Seizures Thrombocytopenia Tracheostomy in place Upper GI bleeding (04/2020) Home Medications phenobarbital 20 mg/5 mL (4 mg/mL) oral elixir 60 mg G-tube 0830,2100 SEIZURES 02/19/17 [History Last Taken 03/23/23] metoclopramide HCl 5 mg/5 mL oral solution 10 mg feeding tube 0830,1600,2100 STOMACH 09/16/18 [History Last Taken 03/23/23] Cough Assist 1 dose .Route .MEDSUPPLY assist in clearing secretions 12/25/18 [History Last Taken 03/23/23] oxygen concentrator 1 dose .Route .MEDSUPPLY second unit, 4 LPM cont all modalities 12/25/18 [History Last Taken Unknown] gabapentin 250 mg/5 mL oral solution 500 mg G-tube 0000,0600,1200,1800 SEIZURES 09/26/19 [History Last Taken 03/23/23] albuterol sulfate 2.5 mg/3 mL (0.083 %) solution for nebulization 2.5 mg inhalation Q4H PRN Sob &/Or Wheezing 11/27/20 [History Last Taken Unknown] lactose-reduced food with fiber 0.06 gram-1.2 kcal/mL oral liquid 1,000 ml G- tube DAILY NUTRITION 11/27/20 [History Last Taken 03/23/23] plecanatide 3 mg tablet 3 mg G-tube 0830 BOWELS 11/27/20 [History Last Taken 03/23/23] doxazosin 2 mg tablet 2 mg PO 0830 BLOOD PRESSURE 11/30/21 [History Last Taken 03/23/23] cholecalciferol (vitamin D3) 10 mcg/mL (400 unit/mL) oral drops 15 mcg feeding tube 0830 SUPPLEMENT 03/24/22 [History Last Taken 03/23/23] guaifenesin 200 mg/5 mL oral liquid 200 mg feeding tube 0830 PRN COUGH/CONGESTION 03/24/22 [History Last Taken Unknown] acetaminophen 650 mg/20.3 mL oral suspension 650 mg feeding tube 0000,0600,1200,1800 PRN PAIN 10/24/22 [History Last Taken Unknown] aluminum-mag hydroxide-simethicone 200 mg-200 mg-20 mg/5 mL oral susp 5 ml PO 0000,0600,1200,1800 PRN ANTACID 10/24/22 [History Last Taken Unknown] cetirizine 1 mg/mL oral solution 10 mg feeding tube 1600 ALLERGIES 10/24/22 [History Last Taken 03/22/23] baclofen 20 mg tablet 20 mg feeding tube Q6H MUSCLE SPASMS 12/10/22 [History Last Taken 03/23/23] ondansetron 4 mg disintegrating tablet 4 mg PO Q8H PRN NAUSEA/VOMITING #30 tabs 12/13/22 [Rx Last Taken Unknown] lorazepam 2 mg/mL injection solution (Ativan) 1 mg IM DAILY PRN AGITATION 03/02/23 [History Last Taken Unknown] montelukast 4 mg oral granules in packet (Singulair) 4 mg PO DAILY ASTHMA #30 ea 03/02/23 [Rx Last Taken Unknown] esomeprazole magnesium 40 mg granules delayed release for susp (Nexium Packet) 40 mg G-tube BID ACID REFLUX 03/23/23 [History Last Taken 03/23/23] ipratropium 0.5 mg-albuterol 3 mg (2.5 mg base)/3 mL nebulization soln 3 ml inhalation Q4H PRN SOB &/OR WHEEZING 03/23/23 [History Last Taken Unknown] Allergy/AdvReac Type Severity Reaction Status Date / Time chlorhexidine Allergy Rash Verified 03/02/23 13:16 cisapride monohydrate Allergy Rash Verified 03/02/23 13:16 [From Propulsid] house dust Allergy NEEDS Verified 03/02/23 13:16 FOLLOW-UP codeine AdvReac hallucinati Verified 03/02/23 13:16 ons metronidazole [From Flagyl] AdvReac Rash Verified 03/02/23 13:16 morphine AdvReac Hallucinati Verified 03/02/23 13:16 ons Family History Mother Hepatitis C Hypertension HIV disease Father H/O heart artery stent CAD (coronary artery disease) Atrial fibrillation Hypertension Esophageal cancer Surgical History Colostomy in place Heel cord lengthening History of colostomy History of eye surgery History of gastrostomy tube placement History of open reduction and internal fixation (ORIF) procedure History of soft tissue release Status post insertion of intrathecal baclofen pump Social History household members: family housing: house current occupational status: disabled Smoking Status: Never smoker alcohol intake: never substance use type: does not use caffeine: No ROS ROS Narrative Per patient's mother, review of systems otherwise negative from a constitutional, HEENT, respiratory, cardiovascular, GI, genitourinary, musculoskeletal, skin, neurologic, psychiatric and hematologic system unless stated above. Physical Exam Const alert Constitutional Narrative: Alert, obese, nonverbal, lying comfortably in bed, no acute distress. HEENT normocephalic, head/scalp atraumatic and moist oral mucous membranes HEENT Narrative: Patient on mechanical ventilation during my evaluation. Macroglossia with protrusion (baseline) Eyes PERRL, EOMs intact bilaterally and conjunctivae normal Neck full ROM, no lymphadenopathy and supple Neck Narrative: Trach is clean, dry and intact. Lymph Lymphatic: no lymphadenopathy noted Chest inspection of chest normal Resp normal respiratory effort and no use of accessory muscles Effort and Inspection: Negative for actively coughing or uses accessory muscles Auscultation: Negative for rales, rhonchi or wheezes Cardio regular rate, regular rhythm, no murmurs and peripheral pulses 2+ throughout GI GI Narrative: Colostomy in place without issue, G-tube in place without issue. Patient's abdomen soft, nontender, nondistended. Significant bowel protrusion noted out of colostomy, but appears pink and healthy Back/Spine normal ROM Extremity normal to inspection, full ROM and no pedal edema Extremity Narrative: Significant contractions noted Skin no rashes or lesions noted Neuro Neuro Narrative: Appears to be at baseline neurologic status Medical Records Data Attestation: I reviewed the patient's medical records Lab / Micro Data Attestation: I reviewed the patient's lab results. 03/24/23 04:55 03/24/23 04:55 Labs: Laboratory Results - last 24 hr 03/23/23 12:35: WBC 13.0 H, RBC 5.07, Hgb 13.1, Hct 42.2, MCV 83.2, MCH 25.8 L, MCHC 31.0 L, RDW Std Deviation 45.1 H, RDW Coeff of Emilee 14.8 H, Plt Count 229, MPV 10.1, Immature Gran % (Auto) 0.400, Neut % (Auto) 70.6 H, Lymph % (Auto) 21.7, Rabun % (Auto) 5.1, Eos % (Auto) 2.0, Baso % (Auto) 0.2, Absolute Neuts (auto) 9.1 H, Absolute Lymphs (auto) 2.81, Nucleated RBC % 0, PT 12.9, INR 1.0, APTT 31.1, Lactic Acid 5.3 H* 03/23/23 13:23: Sodium 135 L, Potassium 3.7, Chloride 104, Carbon Dioxide 26.0, Anion Gap 5, BUN 21 H, Creatinine 0.46 L, Estim Creat Clear Calc 186.40, Est GFR(MDRD) Af Amer 262, Est GFR (MDRD) Non-Af 217, BUN/Creatinine Ratio 46.1 H, Glucose 123 H, Calcium 8.8, Total Bilirubin 0.20, AST 16, ALT 29, Alkaline Phosphatase 169 H, Total Protein 8.8 H, Albumin 3.6, Globulin 5.2 H, Albumin/Globulin Ratio 0.7 L 03/24/23 04:55: WBC 6.9, RBC 4.17 L, Hgb 10.8 L, Hct 35.2 L, MCV 84.4, MCH 25.9 L, MCHC 30.7 L, RDW Std Deviation 46.0 H, RDW Coeff of Emilee 14.9 H, Plt Count 181, MPV 10.4, Immature Gran % (Auto) 0.100, Neut % (Auto) 62.2, Lymph % (Auto) 25.6, Rabun % (Auto) 8.9, Eos % (Auto) 2.9, Baso % (Auto) 0.3, Absolute Neuts (auto) 4.3, Absolute Lymphs (auto) 1.76, Nucleated RBC % 0, Sodium 137, Potassium 3.6, Chloride 106, Carbon Dioxide 29.0, Anion Gap 2 L, BUN 18, Creatinine 0.24 L, Estim Creat Clear Calc 351.31, Est GFR (MDRD) Af Amer 547, Est GFR (MDRD) Non-Af 452, BUN/Creatinine Ratio 74.7 H, Glucose 91, Lactic Acid 0.5, Calcium 8.2 L, Total Bilirubin 0.30, AST 14 L, ALT 25, Alkaline Capganvaqnl993 H, Total Protein 7.5, Albumin 3.1 L, Globulin 4.4 H, Albumin/Globulin Ratio 0.7 L Micro: Microbiology 03/23/23 12:55 Mucosa - Nose Respiratory Panel (PCR) - Final Imaging Radiology Impression Chest X-Ray 03/23/23 13:22 IMPRESSION: Limited inspiratory effort due to patient''s condition. There has been essentially no change prior study. Electronically Signed: Matti Greer MD at 13:40 EST Reading Location ID and State: [facility] / [place] , Service support , Charges/Coding Visit Charges Inpatient E&M: 82593 Init Hosp L2 03/24/23 1448 <Electronically signed by Jacek Monsalve MD> Cosigner Signature (if applicable): CC: Dr. Krishna Siddiqui MD; Dr. Jacek Monsalve MD; Dr. Yovanny Moreira DO; Dr. Mckinley Tristan MD; Dr. Zackary Castro MD; Dr. Chente Conn MD; Dr. Gris Hewitt MD; Dr. Patrice Langley MD; Dr. Lucia Dillard MD; Dr. Goran Rose MD; Dr. Luis Mohr MD; Dr. Vito Bright MD; Dr. Luther Huggins MD; Dr. Cari Cavazos MD~ Signed [facility] Work Phone: 1(484) 246-637001-30-2024 Discharge summary Author Siddharth De La Rosa [facility] March 23, 2023 5:09pm Note Date/Time March 23, 2023 1 2:22pm [facility] Medical Records Department [address] [place] [address] Emergency Department Summary 03/23/23 MR#: [id number] Acct: [id number] Name: KRISS MICHAEL Rep #:[id number] : 1980 43 From: Siddharth De La Rosa MD PCP: Dr. Chente Conn MD Status:AD M IN Location: ICU ICU09-1 HPI <REYNA Scott - Last Filed: 03/23/23 16:27> History of Present Illness Chief Complaint: Nausea/Vomiting Narrative Narrative: Patient is a 43-year-old male with history of cerebral palsy who has a history of aspiration pneumonia with nausea and vomiting. Patient has multiple respiratory problems secondary to his cerebral palsy, patient is a trach, is on oxygen daily, sleeps with the vent. Per the mom, 2 hours prior to arrival patient had 6 episodes of vomiting. The patient then became in slightly respiratory distress, she was trying to suction however only got out scant amount of clear fluid. Per the mom, patient had no fever at home, has not been around any sick persons. [facility] <REYNA Scott - Last Filed: 03/23/23 16:27> [facility] Medical History Acute dyspnea Anemia in chronic illness Anxiety Cerebral palsy Cerebral palsy Chronic respiratory failure Chronic respiratory failure with hypoxia Colostomy prolapse Debility Edema GERD (gastroesophageal reflux disease) History of seizure disorder Iron deficiency anemia Non-smoker Nonrheumatic mitral valve prolapse Obesity On home oxygen therapy Pseudomonas pneumonia Pulmonary embolism Pulmonary embolism on left (06/14/19) Redundant colon Seizures Thrombocytopenia Tracheostomy in place Upper GI bleeding (04/2020) Home Medications phenobarbital 20 mg/5 mL (4 mg/mL) oral elixir 60 mg G-tube 0830,2100 SEIZURES 02/19/17 [History Last Taken 03/23/23] metoclopramide HCl 5 mg/5 mL oral solution 10 mg feeding tube 0830,1600,2100 STOMACH 09/16/18 [History Last Taken 03/23/23] Cough Assist 1 dose .Route .MEDSUPPLY assist in clearing secretions 12/25/18 [History Last Taken 03/23/23] oxygen concentrator 1 dose .Route .MEDSUPPLY second unit, 4 LPM cont all modalities 12/25/18 [History Last Taken Unknown] gabapentin 250 mg/5 mL oral solution 500 mg G-tube 0000,0600,1200,1800 SEIZURES 09/26/19 [History Last Taken 03/23/23] albuterol sulfate 2.5 mg/3 mL (0.083 %) solution for nebulization 2.5 mg inhalation Q4H PRN Sob &/Or Wheezing 11/27/20 [History Last Taken Unknown] lactose-reduced food with fiber 0.06 gram-1.2 kcal/mL oral liquid 1,000 ml G- tube DAILY NUTRITION 11/27/20 [History Last Taken 03/23/23] plecanatide 3 mg tablet 3 mg G-tube 0830 BOWELS 11/27/20 [History Last Taken 03/23/23] doxazosin 2 mg tablet 2 mg PO 0830 BLOOD PRESSURE 11/30/21 [History Last Taken 03/23/23] cholecalciferol (vitamin D3) 10 mcg/mL (400 unit/mL) oral drops 15 mcg feeding tube 0830 SUPPLEMENT 03/24/22 [History Last Taken 03/23/23] guaifenesin 200 mg/5 mL oral liquid 200 mg feeding tube 0830 PRN COUGH/CONGESTION 03/24/22 [History Last Taken Unknown] acetaminophen 650 mg/20.3 mL oral suspension 650 mg feeding tube 0000,0600,1200,1800 PRN PAIN 10/24/22 [History Last Taken Unknown] aluminum-mag hydroxide-simethicone 200 mg-200 mg-20 mg/5 mL oral susp 5 ml PO 0000,0600,1200,1800 PRN ANTACID 10/24/22 [History Last Taken Unknown] cetirizine 1 mg/mL oral solution 10 mg feeding tube 1600 ALLERGIES 10/24/22 [History Last Taken 03/22/23] baclofen 20 mg tablet 20 mg feeding tube Q6H MUSCLE SPASMS 12/10/22 [History Last Taken 03/23/23] ondansetron 4 mg disintegrating tablet 4 mg PO Q8H PRN NAUSEA/VOMITING #30 tabs 12/13/22 [Rx Last Taken Unknown] lorazepam 2 mg/mL injection solution (Ativan) 1 mg IM DAILY PRN AGITATION 03/02/23 [History Last Taken Unknown] montelukast 4 mg oral granules in packet (Singulair) 4 mg PO DAILY ASTHMA #30 ea 03/02/23 [Rx Last Taken Unknown] esomeprazole magnesium 40 mg granules delayed release for susp (Nexium Packet) 40 mg G-tube BID ACID REFLUX 03/23/23 [History Last Taken 03/23/23] ipratropium 0.5 mg-albuterol 3 mg (2.5 mg base)/3 mL nebulization soln 3 ml inhalation Q4H PRN SOB &/OR WHEEZING 03/23/23 [History Last Taken Unknown] Allergy/AdvReac Type Severity Reaction Status Date / Time chlorhexidine Allergy Rash Verified 03/02/23 13:16 cisapride monohydrate Allergy Rash Verified 03/02/23 13:16 [From Propulsid] house dust Allergy NEEDS Verified 03/02/23 13:16 FOLLOW-UP codeine AdvReac hallucinati Verified 03/02/23 13:16 ons metronidazole [From Flagyl] AdvReac Rash Verified 03/02/23 13:16 morphine AdvReac Hallucinati Verified 03/02/23 13:16 ons Family History Mother Hepatitis C Hypertension HIV disease Father H/O heart artery stent CAD (coronary artery disease) Atrial fibrillation Hypertension Esophageal cancer Surgical History Colostomy in place Heel cord lengthening History of colostomy History of eye surgery History of gastrostomy tube placement History of open reduction and internal fixation (ORIF) procedure History of soft tissue release Status post insertion of intrathecal baclofen pump Social History household members: family housing: house current occupational status: disabled Smoking Status: Never smoker alcohol intake: never substance use type: does not use caffeine: No ROS <REYNA Scott - Last Filed: 03/23/23 16:27> ROS ED ROS Narrative Secondary to cerebral palsy, patient being nonverbal, the patient is unable to answer review of symptoms EXAM <REYNA Scott - Last Filed: 03/23/23 16:27> Physical Exam Narrative Exam Narrative: Vital signs reviewed. Patient is tachypneic, tachycardic, appears to be in mild respiratory distress. HEET: Head normocephalic atraumatic, TMs clear bilaterally. Posterior pharynx is clear, moist mucous membranes. Nares clear bilaterally. Neck: Supple with no lymphadenopathy or tenderness. No signs of meningismus. Cardiac tachycardic rate no murmurs gallops or rubs, equal peripheral pulses bilaterally. Respiratory: crackles to the lower bases, diminished lung sounds.. No chest tenderness. Abdomen: Soft, nontender, nondistended. No abdominal bruit or pulsatile masses. No hepatosplenomegaly. Patient's abdomen is firm, patient does have a ileostomy Extremities: No peripheral edema, no signs of gross trauma or deformity. Activefull range of motion of all extremities. Neuro: Cranial nerves II through XII intact, no focal neurological deficits. Per baseline Skin: Clean dry and intact with no rash, purpura, petechiae, vesicles or pustules. Backs/flank: No CVA tenderness, no midline spinal tenderness, no deformity. Psych: Normal mood and affect. No SI, HI or acute psychosis. Const Vital Signs: 03/23/23 12:12 03/23/23 12:19 03/23/23 12:57 Temperature 97.7 F L Temperature Source Temporal Pulse Rate 149 H 145 H Respiratory Rate 20 H 20 H Respiratory Pattern Normal Blood Pressure Blood Pressure Mean Pulse Ox 92 94 Oxygen Delivery Method Mechanical Ventilator 03/23/23 14:00 03/23/23 15:25 Temperature 97.1 F L Temperature Source Temporal Pulse Rate 137 H 115 H Respiratory Rate 21 H 16 Respiratory Pattern Blood Pressure 139/93 H 124/81 H Blood Pressure Mean 108 95 Pulse Ox 95 95 Oxygen Delivery Method Mechanical Ventilator Mechanical Ventilator <Dr. Siddharth De La Rosa MD - Last Filed: 03/23/23 17:09> Physical Exam Const Vital Signs: 03/23/23 12:12 03/23/23 12:19 03/23/23 12:57 Temperature 97.7 F L Temperature Source Temporal Pulse Rate 149 H 145 H Respiratory Rate 20 H 20 H Respiratory Pattern Normal Blood Pressure Blood Pressure Mean Pulse Ox 92 94 Oxygen Delivery Method Mechanical Ventilator 03/23/23 14:00 03/23/23 15:25 Temperature 97.1 F L Temperature Source Temporal Pulse Rate 137 H 115 H Respiratory Rate 21 H 16 Respiratory Pattern Blood Pressure 139/93 H 124/81 H Blood Pressure Mean 108 95 Pulse Ox 95 95 Oxygen Delivery Method Mechanical Ventilator Mechanical Ventilator [facility] <Dominic Méndez PLATEMAKER-C - Last Filed: 03/23/23 16:27> [facility] Lab Data Labs: Laboratory Results - last 24 hr 03/23/23 03/23/23 12:35 13:23 WBC 13.0 H RBC 5.07 Hgb 13.1 Hct 42.2 MCV 83.2 MCH 25.8 L MCHC 31.0 L RDW Std Deviation 45.1 H RDW Coeff of Emilee 14.8 H Plt Count 229 MPV 10.1 Immature Gran % (Auto) 0.400 Neut % (Auto) 70.6 H Lymph % (Auto) 21.7 Rabun % (Auto) 5.1 Eos % (Auto) 2.0 Baso % (Auto) 0.2 Absolute Neuts (auto) 9.1 H Absolute Lymphs (auto) 2.81 Nucleated RBC % 0 PT 12.9 INR 1.0 APTT 31.1 Sodium 135 L Potassium 3.7 Chloride 104 Carbon Dioxide 26.0 Anion Gap 5 BUN 21 H Creatinine 0.46 L Estim Creat Clear Calc 186.40 Est GFR (MDRD) Af Amer 262 Est GFR (MDRD) Non-Af 217 BUN/Creatinine Ratio 46.1 H Glucose 123 H Lactic Acid 5.3 H* Calcium 8.8 Total Bilirubin 0.20 AST 16 ALT 29 Alkaline Phosphatase 169 H Total Protein 8.8 H Albumin 3.6 Globulin 5.2 H Albumin/Globulin Ratio 0.7 L Radiography Diagnostic Testing: Clinical Impression(s) from Imaging Studies Chest X-Ray 03/23/23 13:22 IMPRESSION: Limited inspiratory effort due to patient''s condition. There has been essentially no change prior study. Electronically Signed: Matti Greer MD at 13:40 EST , EKG EKG shows tachycardic rhythm, difficult because the patient is constantly moving.: Attestation: I personally reviewed and interpreted this EKG as follows: Comments: Sinus tachycardia Treatment and Re-Evaluation :: Patient appears to be in mild respiratory distress, tachycardia tachypneic. Patient mother at bedside. Presenting to the emergency department with complaints of nausea and vomiting at home. Differential diagnose includes community-acquired pneumonia, viral symptoms, aspiration pneumonia. Patient will receive a full septic workup, Zofran. Chest x-ray. All radiologic examinations were read, reviewed by the emergency department attending. From these reads, a plan of care will be put in place. Patient be placed on the ventthat was brought from home secondary to the familiarity and appropriate vent settings. Patient heart rate remains elevated, patient is doing well on his ventilation with a pulse oxygenation is 95, patient is more calm. Patient's CBC shows a leukocytosis of white blood count of 13, PT/INR within normal limits. Patient'schemistries show glucose of 123, patient's lactic acid was 5.3 which is elevated. Alkaline phos is 169. Chest x-ray interpreted by ER physician shows Limited inspiration effort due to patient's condition, there is been no change from the prior study. Patient will be treated for aspiration pneumonia with Unasyn, IV fluids 500 cc bolus, at this time, do be the patient needs to be admitted for aspiration pneumonia, nausea and vomiting, hypoxia. I spoke with the mother who is agreement. Secondary to the patient's elevated heart rate, increased restlessness. I will speak to the hospitalist. Patient's respiratory panel was negative. Patient be excepted by hospitalist. <Dr. Siddharth De La Rosa MD - Last Filed: 03/23/23 17:09> [facility] Lab Data Labs: Laboratory Results - last 24 hr 03/23/23 03/23/23 12:35 13:23 WBC 13.0 H RBC 5.07 Hgb 13.1 Hct 42.2 MCV 83.2 MCH 25.8 L MCHC 31.0 L RDW Std Deviation 45.1 H RDW Coeff of Emilee 14.8 H Plt Count 229 MPV 10.1 Immature Gran % (Auto) 0.400 Neut % (Auto) 70.6 H Lymph % (Auto) 21.7 Rabun % (Auto) 5.1 Eos % (Auto) 2.0 Baso % (Auto) 0.2 Absolute Neuts (auto) 9.1 H Absolute Lymphs (auto) 2.81 Nucleated RBC % 0 PT 12.9 INR 1.0 APTT 31.1 Sodium 135 L Potassium 3.7 Chloride 104 Carbon Dioxide 26.0 Anion Gap 5 BUN 21 H Creatinine 0.46 L Estim Creat Clear Calc 186.40 Est GFR (MDRD) Af Amer 262 Est GFR (MDRD) Non-Af 217 BUN/Creatinine Ratio 46.1 H Glucose 123 H Lactic Acid 5.3 H* Calcium 8.8 Total Bilirubin 0.20 AST 16 ALT 29 Alkaline Phosphatase 169 H Total Protein 8.8 H Albumin 3.6 Globulin 5.2 H Albumin/Globulin Ratio 0.7 L Radiography Diagnostic Testing: Clinical Impression(s) from Imaging Studies Chest X-Ray 03/23/23 13:22 IMPRESSION: Limited inspiratory effort due to patient''s condition. There has been essentially no change prior study. Electronically Signed: Matti Greer MD at 13:40 EST , Management Discussion w/another healthcare provider: Hospitalist Treatment and Re-Evaluation Comments:: Usual I have personally performed a face to face assessment of the patient and have reviewed the VIC Note. I performed a substantive portion of thevisit including all aspects of the following. My mcclain findings include: History is chronic respiratory failure with tracheostomy, mother had the [place] when he was vomiting and we suspect aspiration which she has a longstandinghistory of. Very short of breath since then. Exam is respiratory distress, coarse breath sounds bilaterally equal bilaterally. Keenly alert. At baseline mental status per family. Heart regular tachycardic. Medical Decison Making respiratory at the bedside. Placing the patient on his own ventilator and will adjust settings accordingly, perform suction, nebulizers, chest x-ray, labs, as other measures of supportive care with oxygen and reevaluate continuously. Patient better with ventilator support. Lactic acidosis is noted, his heart rate is down, he is requiring more oxygen than usual to maintain normoxia. Plan is for admission. I think PCU was okay, he does not appear to need critical care support at this time Other additions or changes: [None] <Dr. Siddharth De La Rosa MD - Last Filed: 03/23/23 17:09> Critical Care Time Critical Care Time: Yes Critical care time (excluding procedures): 30-74 minutes (36 min), Including time spent:, Discussing w/Patient &/or Family/Group Art Supervisor, Discussing w/Consultants, Arranging Admission or Transfer and Performing Direct Patient Care at Bedside Discharge Plan Dx/Rx/DC Orders Clinical Impression: Acute hypoxemic respiratory failure, Aspiration pneumonia, Cerebral palsy, Acidosis, lactic Disposition Disposition: Acute Care Hospital [facility] Discharge Date/Time: 03/23/23 16:46 What to do if you have Problems For any increased pain, shortness of breath, bleeding, nausea or vomiting, chest pain, or any unexpected problems, contact your Primary Care Provider. Call [facility] ([phone]) or report to the closest Emergency Room. Call 911 if necessary. 03/23/23 1704 <Electronically signed by Siddharth De La Rosa MD> Cosigner Signature (if applicable): 03/23/23 1627 <Electronically signed by Dominic HEBERTC> CC: Dr. Chente Conn MD ~ Signed [facility] Work Phone: 1(672) 966-797101-30-2024 History and physical note Author Lucia Dillard [facility] March 23, 2023 4:44pm Note Date/Time March 23, 2023 4 :37pm [facility] Medical Records Department [address] [place] [address] H&P Exam - Hospitalist 03/23/23 1633 MR#: [id number] Acct: [id number] Name: KRISS MICHAEL Rep #:[id number] : 1980 43 From: Lucia Dillard MD PCP: Dr. Chente Conn MD Status:AD M IN Location: ICU ICU09-1 HPI - General General Date of Admission: 03/23/23 Date of Service: 03/23/23 Chief Complaint: Respiratory distress HPI Narrative KRISS MICHAEL, is a 43-year-old male with a history of cerebral palsy withspastic quadriplegia, chronic dysphagia with a PEG tube, chronic respiratory failure with 4 L O2 during the day and trach with home vent nightly, seizure disorder, and GERD who presented to [facility] 03/23/2023 due to concern for aspiration and respiratory distress. He had been in his usual health but his trach cuff was down for care purposes and before it was reinflated patient had episode of emesis and then had shortness of breath and respiratory distress prompting patient to come to ED. In ED he was 88% on his 4L and required patient to be placed on home vent which he only uses usually at bedtime. He additionally was noted to be in respiratory distress, chest x-ray not yet reflective of an aspiration event, patient was given nebs and antibiotics and begin to improve. Hospitalist contacted for admission. Patientevaluated at bedside with mother present. Pt unable to contribute to hx so hx obtained from mother. Patient was in his usual health until earlier today when he had 6-7 episodes of vomiting then went to respiratory distress and reportedlyvomited 1-2 times here and he was given Zofran and she also vented air from his stomach and has had no further vomiting. She reports he is doing much better and patient is presently not in any acute distress. [facility] Medical History Acute dyspnea Anemia in chronic illness Anxiety Cerebral palsy Cerebral palsy Chronic respiratory failure Chronic respiratory failure with hypoxia Colostomy prolapse Debility Edema GERD (gastroesophageal reflux disease) History of seizure disorder Iron deficiency anemia Non-smoker Nonrheumatic mitral valve prolapse Obesity On home oxygen therapy Pseudomonas pneumonia Pulmonary embolism Pulmonary embolism on left (06/14/19) Redundant colon Seizures Thrombocytopenia Tracheostomy in place Upper GI bleeding (04/2020) Home Medications phenobarbital 20 mg/5 mL (4 mg/mL) oral elixir 60 mg G-tube 0830,2100 SEIZURES 02/19/17 [History Last Taken 03/23/23] metoclopramide HCl 5 mg/5 mL oral solution 10 mg feeding tube 0830,1600,2100 STOMACH 09/16/18 [History Last Taken 03/23/23] Cough Assist 1 dose .Route .MEDSUPPLY assist in clearing secretions 12/25/18 [History Last Taken 03/23/23] oxygen concentrator 1 dose .Route .MEDSUPPLY second unit, 4 LPM cont all modalities 12/25/18 [History Last Taken Unknown] gabapentin 250 mg/5 mL oral solution 500 mg G-tube 0000,0600,1200,1800 SEIZURES 09/26/19 [History Last Taken 03/23/23] albuterol sulfate 2.5 mg/3 mL (0.083 %) solution for nebulization 2.5 mg inhalation Q4H PRN Sob &/Or Wheezing 11/27/20 [History Last Taken Unknown] lactose-reduced food with fiber 0.06 gram-1.2 kcal/mL oral liquid 1,000 ml G- tube DAILY NUTRITION 11/27/20 [History Last Taken 03/23/23] plecanatide 3 mg tablet 3 mg G-tube 0830 BOWELS 11/27/20 [History Last Taken 03/23/23] doxazosin 2 mg tablet 2 mg PO 0830 BLOOD PRESSURE 11/30/21 [History Last Taken 03/23/23] cholecalciferol (vitamin D3) 10 mcg/mL (400 unit/mL) oral drops 15 mcg feeding tube 0830 SUPPLEMENT 03/24/22 [History Last Taken 03/23/23] guaifenesin 200 mg/5 mL oral liquid 200 mg feeding tube 0830 PRN COUGH/CONGESTION 03/24/22 [History Last Taken Unknown] acetaminophen 650 mg/20.3 mL oral suspension 650 mg feeding tube 0000,0600,1200,1800 PRN PAIN 10/24/22 [History Last Taken Unknown] aluminum-mag hydroxide-simethicone 200 mg-200 mg-20 mg/5 mL oral susp 5 ml PO 0000,0600,1200,1800 PRN ANTACID 10/24/22 [History Last Taken Unknown] cetirizine 1 mg/mL oral solution 10 mg feeding tube 1600 ALLERGIES 10/24/22 [History Last Taken 03/22/23] baclofen 20 mg tablet 20 mg feeding tube Q6H MUSCLE SPASMS 12/10/22 [History Last Taken 03/23/23] ondansetron 4 mg disintegrating tablet 4 mg PO Q8H PRN NAUSEA/VOMITING #30 tabs 12/13/22 [Rx Last Taken Unknown] lorazepam 2 mg/mL injection solution (Ativan) 1 mg IM DAILY PRN AGITATION 03/02/23 [History Last Taken Unknown] montelukast 4 mg oral granules in packet (Singulair) 4 mg PO DAILY ASTHMA #30 ea 03/02/23 [Rx Last Taken Unknown] esomeprazole magnesium 40 mg granules delayed release for susp (Nexium Packet) 40 mg G-tube BID ACID REFLUX 03/23/23 [History Last Taken 03/23/23] ipratropium 0.5 mg-albuterol 3 mg (2.5 mg base)/3 mL nebulization soln 3 ml inhalation Q4H PRN SOB &/OR WHEEZING 03/23/23 [History Last Taken Unknown] Allergy/AdvReac Type Severity Reaction Status Date / Time chlorhexidine Allergy Rash Verified 03/02/23 13:16 cisapride monohydrate Allergy Rash Verified 03/02/23 13:16 [From Propulsid] house dust Allergy NEEDS Verified 03/02/23 13:16 FOLLOW-UP codeine AdvReac hallucinati Verified 03/02/23 13:16 ons metronidazole [From Flagyl] AdvReac Rash Verified 03/02/23 13:16 morphine AdvReac Hallucinati Verified 03/02/23 13:16 ons Family History Mother Hepatitis C Hypertension HIV disease Father H/O heart artery stent CAD (coronary artery disease) Atrial fibrillation Hypertension Esophageal cancer Surgical History Colostomy in place Heel cord lengthening History of colostomy History of eye surgery History of gastrostomy tube placement History of open reduction and internal fixation (ORIF) procedure History of soft tissue release Status post insertion of intrathecal baclofen pump Social History household members: family housing: house current occupational status: disabled Smoking Status: Never smoker alcohol intake: never substance use type: does not use caffeine: No ROS ROS Narrative Unable to obtain from patient due to mental status, pertinent positives are respiratory distress and vomiting Vital Signs Vital Signs Vital Signs: 03/23/23 12:12 03/23/23 12:19 03/23/23 12:57 Temperature 97.7 F L Temperature Source Temporal Pulse Rate 149 H 145 H Respiratory Rate 20 H 20 H Respiratory Pattern Normal Blood Pressure Blood Pressure Mean Pulse Ox 92 94 Oxygen Delivery Method Mechanical Ventilator 03/23/23 14:00 03/23/23 15:25 Temperature 97.1 F L Temperature Source Temporal Pulse Rate 137 H 115 H Respiratory Rate 21 H 16 Respiratory Pattern Blood Pressure 139/93 H 124/81 H Blood Pressure Mean 108 95 Pulse Ox 95 95 Oxygen Delivery Method Mechanical Ventilator Mechanical Ventilator Weight Weight: 80.9 kg Body Mass Index (BMI) 34.8 Physical Exam Narrative General: Alert, no apparent distress HEENT: Atraumatic, normocephalic Eyes: Anicteric, normal conjunctiva, extraocular movements grossly intact Neck: Supple Respiratory: Slightly coarse with normal respiratory effort Cardiovascular: Regular rate and rhythm GI: Soft, nondistended Extremities: No significant pitting edema Musculoskeletal: Moving all extremities Neuro: No overt focal neurological deficits Skin: No rashes appreciated Psych: Unable to cooperate secondary to mental status Results Lab / Micro Data 03/23/23 12:35 03/23/23 13:23 Labs: Laboratory Results - last 24 hr 03/23/23 12:35: WBC 13.0 H, RBC 5.07, Hgb 13.1, Hct 42.2, MCV 83.2, MCH 25.8 L, MCHC 31.0 L, RDW Std Deviation 45.1 H, RDW Coeff of Emilee 14.8 H, Plt Count 229, MPV 10.1, Immature Gran % (Auto) 0.400, Neut % (Auto) 70.6 H, Lymph % (Auto) 21.7, Rabun % (Auto) 5.1, Eos % (Auto) 2.0, Baso % (Auto) 0.2, Absolute Neuts (auto) 9.1 H, Absolute Lymphs (auto) 2.81, Nucleated RBC % 0, PT 12.9, INR 1.0, APTT 31.1, Lactic Acid 5.3 H* 03/23/23 13:23: Sodium 135 L, Potassium 3.7, Chloride 104, Carbon Dioxide 26.0, Anion Gap 5, BUN 21 H, Creatinine 0.46 L, Estim Creat Clear Calc 186.40, Est GFR(MDRD) Af Amer 262, Est GFR (MDRD) Non-Af 217, BUN/Creatinine Ratio 46.1 H, Glucose 123 H, Calcium 8.8, Total Bilirubin 0.20, AST 16, ALT 29, Alkaline Phosphatase 169 H, Total Protein 8.8 H, Albumin 3.6, Globulin 5.2 H, Albumin/Globulin Ratio 0.7 L Micro: Microbiology 03/23/23 12:55 Mucosa - Nose Respiratory Panel (PCR) - Final Imaging Radiology Impression Chest X-Ray 03/23/23 13:22 IMPRESSION: Limited inspiratory effort due to patient''s condition. There has been essentially no change prior study. Electronically Signed: Matti Greer MD at 13:40 EST , Assessment & Plan Assessment/Plan (1) Acute hypoxemic respiratory failure: (2) Acidosis, lactic: PLAN: Plan # Acute on chronic respiratory failure on chronic 4 L O2 during daytime and ventvia tracheostomy nightly -88% and in acute respiratory distress on arrival on his 4 L of O2 through trachand had to be placed on his home vent that he usually only uses at bedtime -Went into respiratory distress after episode of vomiting, suspect aspiration, chest x-ray not yet reflective of this episode however given history, symptoms, presentation will be treated as such -Continue nebs, antibiotics -Consult pulm -Continue supportive care # Elevated lactic acid -Of 5.3, will repeat/trend -Suspect this was due to respiratory distress and hypoxia #Cerebral palsy with spastic quadriplegia -Baclofen, gabapentin, Ativan #Seizure disorder -Gabapentin, Ativan, phenobarb #Chronic dysphagia -Status post PEG tube -Tube feeds #GERD -Continue PPI #DVT ppx: SCDs Luica Dillard MD Time spent in the patient's overall evaluation,decision-making process, review of diagnostic data, adjustment of management, discussion with other providers, nursing nursing and ancillary staff involved in patient's care documentation, 56Minutes Charges/Coding Visit Charges Inpatient E&M: 70998 Init Hosp L2 03/23/23 1644 <Electronically signed by Lucia Dillard MD> Cosigner Signature (if applicable): CC: Dr. Chente Conn MD; Dr. Lucia Dillard MD~ Signed [facility] Work Phone: 1(611) 882-535811-25-2023 Discharge summary Author Dalton Lester [facility] January 16, 2023 10:58pm Note Date/Time January 16, 2023 7:42pm [facility] Medical Records Department [address] [place] [address] Emergency Department Summary 01/16/23 MR#: [id number] Acct: [id number] Name: KRISS MICHAEL Rep #:[id number] : 1980 42 From: Amena OAKES PCP: Dr. Chente Conn MD Status:RE G ER Location: ED HPI <CHAMP Merlos - Last Filed: 01/16/23 20:59> History of Present Illness Chief Complaint: Nausea/Vomiting Narrative Narrative: 42-year-old male with past medical history of cerebral palsy, tracheostomy, colostomy with prolapse, chronic debility presents for evaluation. His parents state they gave his afternoon medications and then he vomited around 5 PM. He also spiked a temperature around 99 F and they gave Tylenol around 6 PM. He takes all meds through a feeding tube. Mom has had to suction out his trach more frequently this week and she is concerned for aspiration pneumonia as he has had that in the past. He is connected to a ventilator at night. Colostomy has had normal stool output. He has a chronic prolapsed hernia into the colostomy bag and the surgeon did not want to operate again. [facility] <CHAMP Merlos - Last Filed: 01/16/23 20:59> [facility] Medical History (Updated 01/16/23 @ 20:59 by CHAMP Merlos) Acute dyspnea Anemia in chronic illness Anxiety Cerebral palsy Cerebral palsy Chronic respiratory failure Chronic respiratory failure with hypoxia Colostomy prolapse Debility Edema GERD (gastroesophageal reflux disease) History of seizure disorder Iron deficiency anemia Non-smoker Nonrheumatic mitral valve prolapse Obesity On home oxygen therapy Pseudomonas pneumonia Pulmonary embolism Pulmonary embolism on left (06/14/19) Redundant colon Seizures Thrombocytopenia Tracheostomy in place Upper GI bleeding (04/2020) Home Medications phenobarbital 20 mg/5 mL (4 mg/mL) oral elixir 60 mg G-tube 0830,2100 SEIZURES 02/19/17 [History Last Taken 04/24/20 21:00] metoclopramide HCl 5 mg/5 mL oral solution 10 mg feeding tube 0830,1600,2100 STOMACH 09/16/18 [History Last Taken 04/24/20 21:00] Cough Assist 1 dose .Route .MEDSUPPLY assist in clearing secretions 12/25/18 [History Last Taken Unknown] oxygen concentrator 1 dose .Route .MEDSUPPLY second unit, 4 LPM cont all modalities 12/25/18 [History Last Taken Unknown] gabapentin 250 mg/5 mL oral solution 500 mg G-tube 0000,0600,1200,1800 SEIZURES 09/26/19 [History Last Taken 04/25/20 06:00] albuterol sulfate 2.5 mg/3 mL (0.083 %) solution for nebulization 2.5 mg inhalation Q4H PRN Sob &/Or Wheezing 11/27/20 [History Last Taken Unknown] lactose-reduced food with fiber 0.06 gram-1.2 kcal/mL oral liquid 1,000 ml G- tube DAILY NUTRITION 11/27/20 [History Last Taken Unknown] plecanatide 3 mg tablet 3 mg G-tube 0830 BOWELS 11/27/20 [History Last Taken Unknown] doxazosin 2 mg tablet 2 mg PO 0830 BLOOD PRESSURE 11/30/21 [History Last Taken Unknown] cholecalciferol (vitamin D3) 10 mcg/mL (400 unit/mL) oral drops 15 mcg feeding tube 0830 SUPPLEMENT 03/24/22 [History Last Taken Unknown] guaifenesin 200 mg/5 mL oral liquid 200 mg feeding tube 0830 PRN COUGH/CONGESTION 03/24/22 [History Last Taken Unknown] acetaminophen 650 mg/20.3 mL oral suspension 650 mg feeding tube 0000,0600,1200,1800 PRN PAIN 10/24/22 [History Last Taken Unknown] aluminum-mag hydroxide-simethicone 200 mg-200 mg-20 mg/5 mL oral susp 5 ml PO 0000,0600,1200,1800 PRN ANTACID 10/24/22 [History Last Taken Unknown] cetirizine 1 mg/mL oral solution 10 mg feeding tube 1600 ALLERGIES 10/24/22 [History Last Taken Unknown] lorazepam 2 mg/mL injection solution (Ativan) 1 mg IM DAILY PRN AGITATION 10/24/22 [History Last Taken Unknown] baclofen 20 mg tablet 20 mg feeding tube .every 6 hours muscle spasms 12/10/22 [History Last Taken Unknown] esomeprazole magnesium 40 mg granules delayed release for susp (Nexium Packet) 40 mg PO BID 30 days #60 ea 12/13/22 [Rx Last Taken Unknown] ondansetron 4 mg disintegrating tablet 4 mg PO Q8H PRN nausea and vomiting #30 tabs 12/13/22 [Rx Last Taken Unknown] sucralfate 100 mg/mL oral suspension (Carafate) 10 ml PO BID #1,000 mL 12/13/22 [Rx Last Taken Unknown] ondansetron 4 mg disintegrating tablet 4 mg PO Q8H PRN PRN Nausea #20 tabs 01/16/23 [Rx Last Taken Unknown] Allergy/AdvReac Type Severity Reaction Status Date / Time chlorhexidine Allergy Rash Verified 12/10/22 09:40 cisapride monohydrate Allergy Rash Verified 12/10/22 09:40 [From Propulsid] house dust Allergy NEEDS Verified 12/10/22 09:40 FOLLOW-UP codeine AdvReac hallucinati Verified 12/10/22 09:40 ons metronidazole [From Flagyl] AdvReac Rash Verified 12/10/22 09:40 morphine AdvReac Hallucinati Verified 12/10/22 09:40 ons Family History Mother Hepatitis C Hypertension HIV disease Father H/O heart artery stent CAD (coronary artery disease) Atrial fibrillation Hypertension Esophageal cancer Surgical History Colostomy in place Heel cord lengthening History of colostomy History of eye surgery History of gastrostomy tube placement History of open reduction and internal fixation (ORIF) procedure History of soft tissue release Status post insertion of intrathecal baclofen pump Social History household members: family housing: house current occupational status: disabled Smoking Status: Never smoker alcohol intake: never substance use type: does not use caffeine: No ROS <CHAMP Merlos - Last Filed: 01/16/23 20:59> ROS ED ROS Narrative Unable to fully obtain. Positive for fever, vomiting. EXAM <CHAMP Merlos - Last Filed: 01/16/23 20:59> Physical Exam Narrative Exam Narrative: CONST: Male with severe cerebral palsy lying in bed in no distress. EYES: Normal inspection. ENT: Protruding tongue, moist mucous membranes. NECK: Normal inspection. RESP: No respiratory distress, faint wheeze throughout. CVS: Rapid but regular rhythm, no murmur, no gallop. ABD: Soft and nontender, no guarding or rebound. Left lower colostomy bag intact with protruding pink moist bowel tissue into the bag, normal appearing brown stool. SKIN: Color normal, no rash, warm, dry, intact. EXTREMITIES: Chronic contractures. NEURO: Awake, does not interact, at baseline. PSYCH: Normal affect. Const Vital Signs: 01/16/23 19:17 01/16/23 19:16 01/16/23 21:05 Temperature 97.3 F L Temperature Source Temporal Pulse Rate 125 H 123 H 115 H Respiratory Rate 12 16 18 Respiratory Pattern Blood Pressure 158/116 H 158/116 H 138/91 H Blood Pressure Mean 130 130 106 Pulse Ox 95 96 97 Oxygen Delivery Method Trach Collar Oxygen Flow Rate (L/min) 4 4 4 01/16/23 20:50 Temperature Temperature Source Pulse Rate 114 H Respiratory Rate 28 H Respiratory Pattern Tachypnea Blood Pressure Blood Pressure Mean Pulse Ox Oxygen Delivery Method Oxygen Flow Rate (L/min) <Dr. Dalton Lester DO - Last Filed: 01/16/23 22:58> Physical Exam Const Vital Signs: 01/16/23 19:17 01/16/23 19:16 01/16/23 21:05 Temperature 97.3 F L Temperature Source Temporal Pulse Rate 125 H 123 H 115 H Respiratory Rate 12 16 18 Respiratory Pattern Blood Pressure 158/116 H 158/116 H 138/91 H Blood Pressure Mean 130 130 106 Pulse Ox 95 96 97 Oxygen Delivery Method Trach Collar Oxygen Flow Rate (L/min) 4 4 4 01/16/23 20:50 Temperature Temperature Source Pulse Rate 114 H Respiratory Rate 28 H Respiratory Pattern Tachypnea Blood Pressure Blood Pressure Mean Pulse Ox Oxygen Delivery Method Oxygen Flow Rate (L/min) MDM <CHAMP Merlos - Last Filed: 01/16/23 20:59> [facility] Narrative Medical decision making narrative: History gathered from parents. Patient had an episode of emesis and a temperature of 99 this afternoon and is brought in for evaluation. He has not had any fever above 100. He is lying in bed in no distress. Tracheostomy intact. Heart is rapid but regular. Lungs have faint wheeze so I ordered a DuoNeb. Abdomen is soft and nontender. Colostomy bag intact with chronic protruding hernia. Mom reports no recent symptoms of GI bleed which he had lastmonth. Differential includes viral illness, aspiration pneumonia, UTI among others. Sepsis workup was initiated and he was given IV fluids and Zofran. White count is 8.7, hemoglobin of 11.6 is higher than previous. The rest of his labs are pending. Urinalysis negative. Case was signed over to the attending pending workup. Lab Data Attestation: I reviewed the patient's lab results. Labs: Laboratory Results - last 24 hr 01/16/23 20:20 WBC 8.7 RBC 4.46 L Hgb 11.6 L Hct 37.5 L MCV 84.1 MCH 26.0 L MCHC 30.9 L RDW Std Deviation 44.5 H RDW Coeff of Emilee 14.6 Plt Count 206 MPV 10.2 Immature Gran % (Auto) 0.300 Neut % (Auto) 75.2 H Lymph % (Auto) 16.8 L Rabun % (Auto) 6.5 Eos % (Auto) 1.1 Baso % (Auto) 0.1 Absolute Neuts (auto) 6.6 Absolute Lymphs (auto) 1.47 Nucleated RBC % 0 Sodium 137 Potassium 3.7 Chloride 105 Carbon Dioxide 28.0 Anion Gap 4 L BUN 21 H Creatinine 0.30 L Estim Creat Clear Calc 231.48 Est GFR (MDRD) Af Amer 422 Est GFR (MDRD) Non-Af 349 BUN/Creatinine Ratio 69.5 H Glucose 97 Lactic Acid 0.9 Calcium 8.3 L Troponin I High Sens 4 Urine Color Yellow Urine Clarity Clear Urine pH 6.0 Ur Specific [place] 1.025 Urine Protein 30 H Urine Glucose (UA) Normal Urine Ketones 5 H Urine Occult Blood 10 H Urine Nitrite Negative Urine Bilirubin Negative Urine Urobilinogen Normal Ur Leukocyte Esterase 25 H Urine RBC 0 SEEN Urine WBC 0-5 SEEN Ur Squamous Epith Cells 0 SEEN Urine Bacteria 0 SEEN Urine Mucus 0 SEEN Radiography Diagnostic Testing: Clinical Impression(s) from Imaging Studies Chest X-Ray 01/16/23 20:50 IMPRESSION: 1. Port-A-Cath and tracheostomy without change. 2. Shallow inspiration, crowding of bronchovascular markings without focal infiltrate or consolidation. 3. Stable borderline cardiomegaly without congestive failure. Electronically Signed: Petros Myers MD at 21:57 EST , EKG Initial EKG: Attestation: I personally reviewed and interpreted this EKG as follows: Interpretation: Sinus Tachycardia Comments: Sinus tachycardia at 106 bpm Low voltage QRS No STEMI criteria <Dr. Dalton Lester, DO - Last Filed: 01/16/23 22:58> MDM MDM Narrative Medical decision making narrative: History gathered from parents. Patient had an episode of emesis and a temperature of 99 this afternoon and is brought in for evaluation. He has not had any fever above 100. He is lying in bed in no distress. Tracheostomy intact. Heart is rapid but regular. Lungs have faint wheeze so I ordered a DuoNeb. Abdomen is soft and nontender. Colostomy bag intact with chronic protruding hernia. Mom reports no recent symptoms of GI bleed which he had lastmonth. Differential includes viral illness, aspiration pneumonia, UTI among others. Sepsis workup was initiated and he was given IV fluids and Zofran. White count is 8.7, hemoglobin of 11.6 is higher than previous. The rest of hislabs are pending. Urinalysis negative. Case was signed over to the attending pending workup. This patient was seen with a PA/PLATEMAKER Individually assessed they patient including history and physical. I have reviewed everything on the chart that is availableand agree with the documentation provided by the PA/PLATEMAKER including discussion about the assessment, treatment plan, discussion, and return precautions. Patient presented with tachycardia. Patient given IV fluids and Zofran. Apparently had some nausea and vomiting today. Septic work-up was ordered. CBCshows no leukocytosis. Hemoglobin stable 11.6. Platelets normal at 206. Renalfunction and electrolytes within normal limits. Lactic acid normal at 0.9. Urinalysis negative for infection. Chest x- ray my interpretation shows no acuteprocess. Radiologist reports this and agree. COVID and influenza negative. EKGshows a normal sinus rhythm with a tachycardic rate 106 bpm with incomplete right bundle branch block on my interpretation patient doing well on reevaluation. Discussed findings with family. They are comfortable going home with Zofran. Patient was given his nightly dose of Reglan as well as phenobarbital. Given Zofran prescription for home. Impression: 1. Abdominal pain 2. Nausea/vomiting 3. Tachycardia?resolved Lab Data Labs: Laboratory Results - last 24 hr 01/16/23 20:20 WBC 8.7 RBC 4.46 L Hgb 11.6 L Hct 37.5 L MCV 84.1 MCH 26.0 L MCHC 30.9 L RDW Std Deviation 44.5 H RDW Coeff of Emilee 14.6 Plt Count 206 MPV 10.2 Immature Gran % (Auto) 0.300 Neut % (Auto) 75.2 H Lymph % (Auto) 16.8 L Rabun % (Auto) 6.5 Eos % (Auto) 1.1 Baso % (Auto) 0.1 Absolute Neuts (auto) 6.6 Absolute Lymphs (auto) 1.47 Nucleated RBC % 0 Sodium 137 Potassium 3.7 Chloride 105 Carbon Dioxide 28.0 Anion Gap 4 L BUN 21 H Creatinine 0.30 L Estim Creat Clear Calc 231.48 Est GFR (MDRD) Af Amer 422 Est GFR (MDRD) Non-Af 349 BUN/Creatinine Ratio 69.5 H Glucose 97 Lactic Acid 0.9 Calcium 8.3 L Troponin I High Sens 4 Urine Color Yellow Urine Clarity Clear Urine pH 6.0 Ur Specific [place] 1.025 Urine Protein 30 H Urine Glucose (UA) Normal Urine Ketones 5 H Urine Occult Blood 10 H Urine Nitrite Negative Urine Bilirubin Negative Urine Urobilinogen Normal Ur Leukocyte Esterase 25 H Urine RBC 0 SEEN Urine WBC 0-5 SEEN Ur Squamous Epith Cells 0 SEEN Urine Bacteria 0 SEEN Urine Mucus 0 SEEN Radiography Diagnostic Testing: Clinical Impression(s) from Imaging Studies Chest X-Ray 01/16/23 20:50 IMPRESSION: 1. Port-A-Cath and tracheostomy without change. 2. Shallow inspiration, crowding of bronchovascular markings without focal infiltrate or consolidation. 3. Stable borderline cardiomegaly without congestive failure. Electronically Signed: Petros Myers MD at 21:57 EST , Discharge Plan Triage Chief Complaint: Nausea/Vomiting ED Midlevel Provider: Amena Smith ED Provider: Dalton Lester Dx/Rx/DC Orders Clinical Impression: Tachycardia, Nausea and vomiting Prescriptions: New ondansetron 4 mg tablet,disintegrating 4 mg PO Q8H PRN PRN (Reason: Nausea) Qty: 20 0RF No Action albuterol sulfate 2.5 mg /3 mL (0.083 %) solution for nebulization 2.5 mg inhalation Q4H PRN (Reason: Sob &/Or Wheezing) metoclopramide HCl 5 mg/5 mL solution 10 mg feeding tube 0830,1600,2100 phenobarbital 20 MG/5 ML elixir 60 mg G-tube 0830,2100 Cough Assist 1 dose .Route .MEDSUPPLY Rx Instructions: Inspiratory and Expiratory times of 20-40 seconds with a 1-2 second pause. oxygen concentrator 1 dose .Route .MEDSUPPLY Rx Instructions: As directed lactose-reduced food with fibr 0.06 gram-1.2 kcal/mL liquid 1,000 ml G-tube DAILY Patient Comments: PER PT HOME MED LIST: JEVITY 1.2 BENNY/ML 4.5-5 CARTONS PER DAY. APPROXIMATELY 1 LITER PER DAY. 55ML/HOUR TO 65ML DURING THE DAY. SLOW THIS DOWN TO 45 ML/HOUR AT NIGHT. gabapentin 250 MG/5 ML solution 500 mg G-tube 0000,0600,1200,1800 Patient Comments: PER PT HOME MED LIST: GABAPENTIN DOSING -IF MO'S HEART RATE IS LOW I DON'T ALWAYS GIVE THE WHOLE 10ML GABAPENTIN DOSE MY GUIDES ARE: PULSE <50: I MIGHT WAIT 1 HOUR FOR HIM TO BE MORE AWAKE. GIVE 4 ML PULSE IN THE 50'S: GIVE 5ML OR 6 ML PULSE IN THE 60'S: GIVE 6ML TO 7ML PULSE 69>: GIVE THE WHOLE 10ML plecanatide 3 mg tablet 3 mg GT 0830 doxazosin 2 mg tablet 2 mg GT 0830 cholecalciferol (vitamin D3) 10 mcg/mL (400 unit/mL) drops 15 mcg feeding tube 0830 guaifenesin 200 mg/5 mL liquid 200 mg feeding tube 0830 PRN (Reason: COUGH/CONGESTION) alum-mag hydroxide-simeth 200-200-20 mg/5 mL suspension 5 ml PO 0000,0600,1200,1800 PRN (Reason: ANTACID) acetaminophen 650 mg/20.3 mL suspension 650 mg feeding tube 0000,0600,1200,1800 PRN (Reason: PAIN ) lorazepam [Ativan] 2 mg/mL solution 1 mg IM DAILY PRN (Reason: AGITATION ) cetirizine 1 mg/mL solution 10 mg feeding tube 1600 baclofen 20 mg tablet 20 mg feeding tube .every 6 hours sucralfate [Carafate] 100 mg/mL suspension 10 ml PO BID Qty: 1000 1RF esomeprazole magnesium [Nexium Packet] [address] for susp in packet 40 mg PO BID 30 Days Qty: 60 2RF ondansetron 4 mg tablet,disintegrating 4 mg PO Q8H PRN (Reason: nausea and vomiting) Qty: 30 0RF Primary Care Provider: Chente Conn Referrals: Chente Conn MD [Primary Care Provider] - Disposition Disposition: Home, Self Care What to do if you have Problems For any increased pain, shortness of breath, bleeding, nausea or vomiting, chestpain, or any unexpected problems, contact your Primary Care Provider. Call [facility] ([phone]) or report to the closest Emergency Room. Call 911 if necessary. 01/16/232058 <Electronically signed by Amena OAKES> Cosigner Signature (if applicable): 01/16/232257 <Electronically signed by Dalton Lester DO> CC: Dr. Chente Conn MD ~ Signed [facility] Work Phone: 1(253) 763-472910-22-2023 Discharge summary Author [facility] December 13, 2022 6:10pm Note Date/Time December 13, 2022 1 2:47pm [facility] Medical Records Department [address] [place] [address] Discharge Summary 12/13/22 1247 MR#: [id number] Acct: [id number] Name: KRISS MICHAEL Rep #:[id number] : 1980 42 From: Donte adam DO PCP: Dr. Chente Conn MD Status:AD M IN Location: [place] [id number] Providers Date of Admission: 12/10/22 Date of Discharge: 12/13/22 Primary Care Physician: Dr. Chente Conn MD Reason For Visit: GI BLEED Diagnosis Discharge Diagnosis (1) GI bleed: Status: Resolved Code(s): K92.2 - Gastrointestinal hemorrhage, unspecified Qualifiers: GI bleed type/associated pathology: unspecified gastrointestinal hemorrhage type Qualified Code(s): K92.2 - Gastrointestinal hemorrhage, unspecified Medications at Discharge Home Medications phenobarbital 20 mg/5 mL (4 mg/mL) oral elixir 60 mg G-tube 0830,2099 SEIZURES 02/19/17 metoclopramide HCl 5 mg/5 mL oral solution 10 mg feeding tube 0830,1600,2100 STOMACH 09/16/18 Cough Assist 1 dose .Route .MEDSUPPLY assist in clearing secretions 12/25/18 oxygen concentrator 1 dose .Route .MEDSUPPLY second unit, 4 LPM cont all modalities 12/25/18 gabapentin 250 mg/5 mL oral solution 500 mg G-tube 0000,0600,1200,1800 SEIZURES 09/26/19 albuterol sulfate 2.5 mg/3 mL (0.083 %) solution for nebulization 2.5 mg inhalation Q4H PRN Sob &/Or Wheezing 11/27/20 lactose-reduced food with fiber 0.06 gram-1.2 kcal/mL oral liquid 1,000 ml G- tube DAILY NUTRITION 11/27/20 plecanatide 3 mg tablet 3 mg G-tube 0830 BOWELS 11/27/20 doxazosin 2 mg tablet 2 mg PO 0830 BLOOD PRESSURE 11/30/21 cholecalciferol (vitamin D3) 10 mcg/mL (400 unit/mL) oral drops 15 mcg feeding tube 0830 SUPPLEMENT 03/24/22 guaifenesin 200 mg/5 mL oral liquid 200 mg feeding tube 0830 PRN COUGH/CONGESTION 03/24/22 acetaminophen 650 mg/20.3 mL oral suspension 650 mg feeding tube 0000,0600,1200,1800 PRN PAIN 10/24/22 aluminum-mag hydroxide-simethicone 200 mg-200 mg-20 mg/5 mL oral susp 5 ml PO 0000,0600,1200,1800 PRN ANTACID 10/24/22 cetirizine 1 mg/mL oral solution 10 mg feeding tube 1600 ALLERGIES 10/24/22 lorazepam 2 mg/mL injection solution (Ativan) 1 mg IM DAILY PRN AGITATION 10/24/22 baclofen 20 mg tablet 20 mg feeding tube .every 6 hours muscle spasms 12/10/22 esomeprazole magnesium 40 mg granules delayed release for susp (Nexium Packet) 40 mg PO BID 30 days #60 ea 12/13/22 sucralfate 100 mg/mL oral suspension (Carafate) 10 ml PO BID #1,000 mL 12/13/22 Hospital Course Operations None Procedures EGD and - (Chest x-ray, CT abdomen pelvis with IV contrast) Summary of Care Provided Minutes Spent on Discharge: 38 Hospital Course: Patient is a 42-year-old male with 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 Medical conditions addressed during hospitalization as noted below. Upper GI bleed, resolved: Known history of GI bleeding secondary to gastric ulcers. Had EGD done with Dr. Wilson for this about 2 to 3 years ago. Had been on PPI twice daily since then, was de-escalated to PPI daily sometime this summer per patient's family. Mother notably reports emptying colostomy bag yesterday, nonbloody and not consistent with melena. Hemoglobin 12.4 on admit, baseline hemoglobin around 10- 11. BUN 16, creatinine 0.35, BUN to creatinine ratio 45. CT abdomen pelvis with IV contrast on 12/10/2022 showed known chronicchanges, no focal acute inflammatory process. Gastroenterology followed. S/p EGD on 12/11 ? 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 IV bolus of 50 mcg of octreotide administered, followed by octreotide subcu 3 times daily. Patient did have someepisodes of small-volume vomitus that was blood- tinged after the EGD, resolved by the following night. Started on sucralfate twice daily and resumed PPI twicedaily on discharge. Short course of Zofran as needed also provided on discharge. Acute on chronic anemia, stable: Secondary to GI bleed as noted above. Hemoglobin 12.4 on admit, baseline hemoglobin around 10-11. Suspect patient wassomewhat dry on admission. Hemoglobin remained stable around 10, hemoglobin of 9.9 on discharge. Discharge diagnoses: ? Upper GI bleed, resolved ? Acute on chronic anemia, stable ? Spastic cerebral palsy ? Chronic hypoxic respiratory failure s/p tracheostomy with ventilator dependence ? Seizure disorder Total clinical time spent by myself addressing the patient's discharge needs: 38minutes. Physical Exam Const alert Constitutional Narrative: Alert, obese, nonverbal, lying comfortably in bed, no acute distress. HEENT normocephalic, head/scalp atraumatic, hearing grossly normal bilaterally, nasal mucous membranes and turbinates normal and moist oral mucous membranes Eyes PERRL, EOMs intact bilaterally and conjunctivae normal Neck full ROM, no lymphadenopathy and supple Lymph Lymphatic: no lymphadenopathy noted Chest inspection of chest normal Resp Resp Narrative: Trach mask in place, patient saturating well on supplemental O2, no increased work of breathing noted. Cardio regular rate, regular rhythm, no murmurs and peripheral pulses 2+ throughout GI GI Narrative: Colostomy in place without issue, G-tube in place without issue. Patient's abdomen soft, nontender, nondistended. Back/Spine normal ROM Extremity normal to inspection, full ROM and no pedal edema Skin no rashes or lesions noted Weight / BMI Weight Weight: 77.5 kg Body Mass Index (BMI) 33.3 ABG / Lab / Microbiology Data 12/13/22 07:45 12/13/22 07:45 Laboratory: Laboratory Results - last 24 hr 12/13/22 07:45: WBC 7.6, RBC 3.74 L, Hgb 9.9 L, Hct 32.7 L, MCV 87.4, MCH 26.5 L, MCHC 30.3 L, RDW Std Deviation 46.0 H, RDW Coeff of Emilee 14.4, Plt Count 166, MPV 9.9, Sodium 141, Potassium 3.4 L, Chloride 109 H, Carbon Dioxide 27.0, AnionGap 5, BUN 12, Creatinine 0.25 L, Estim Creat Clear Calc 277.78, Est GFR (MDRD) Af Amer 515, Est GFR (MDRD) Non-Af 426, BUN/Creatinine Ratio 47.2 H, Glucose 116H, Calcium 7.4 L D/C Instructions Discharge Diet: No restrictions Pending Tests Upon Discharge: None Please Follow Up With: Chente Conn MD When: As needed Meaningful Use Info Meaningful Use Diagnoses (Choose all that apply): None applicable Discharge Plan Admission Admit Date/Time: 12/10/22 12:21 Primary Reason for Your Visit: upper GI bleed Attending Provider: Donte Abebe Primary Care Provider: Schinner,Chente E Discharge Orders/Prescriptions Prescriptions: New sucralfate [Carafate] 100 mg/mL suspension 10 ml PO BID Qty: 1000 1RF esomeprazole magnesium [Nexium Packet] [address] for susp in packet 40 mg PO BID 30 Days Qty: 60 2RF Continued albuterol sulfate 2.5 mg /3 mL (0.083 %) solution for nebulization 2.5 mg inhalation Q4H PRN (Reason: Sob &/Or Wheezing) metoclopramide HCl 5 mg/5 mL solution 10 mg feeding tube 0830,1600,2100 phenobarbital 20 MG/5 ML elixir 60 mg G-tube 0830,2100 Cough Assist 1 dose .Route .MEDSUPPLY Rx Instructions: Inspiratory and Expiratory times of 20-40 seconds with a 1-2 second pause. oxygen concentrator 1 dose .Route .MEDSUPPLY Rx Instructions: As directed lactose-reduced food with fibr 0.06 gram-1.2 kcal/mL liquid 1,000 ml G-tube DAILY Patient Comments: PER PT HOME MED LIST: JEVITY 1.2 BENNY/ML 4.5-5 CARTONS PER DAY. APPROXIMATELY 1 LITER PER DAY. 55ML/HOUR TO 65ML DURING THE DAY. SLOW THIS DOWN TO 45 ML/HOUR AT NIGHT. gabapentin 250 MG/5 ML solution 500 mg G-tube 0000,0600,1200,1800 Patient Comments: PER PT HOME MED LIST: GABAPENTIN DOSING -IF MO'S HEART RATE IS LOW I DON'T ALWAYS GIVE THE WHOLE 10ML GABAPENTIN DOSE MY GUIDES ARE: PULSE <50: I MIGHT WAIT 1 HOUR FOR HIM TO BE MORE AWAKE. GIVE 4 ML PULSE IN THE 50'S: GIVE 5ML OR 6 ML PULSE IN THE 60'S: GIVE 6ML TO 7ML PULSE 69>: GIVE THE WHOLE 10ML plecanatide 3 mg tablet 3 mg GT 0830 doxazosin 2 mg tablet 2 mg GT 0830 cholecalciferol (vitamin D3) 10 mcg/mL (400 unit/mL) drops 15 mcg feeding tube 0830 guaifenesin 200 mg/5 mL liquid 200 mg feeding tube 0830 PRN (Reason: COUGH/CONGESTION) alum-mag hydroxide-simeth 200-200-20 mg/5 mL suspension 5 ml PO 0000,0600,1200,1800 PRN (Reason: ANTACID) acetaminophen 650 mg/20.3 mL suspension 650 mg feeding tube 0000,0600,1200,1800 PRN (Reason: PAIN ) lorazepam [Ativan] 2 mg/mL solution 1 mg IM DAILY PRN (Reason: AGITATION ) cetirizine 1 mg/mL solution 10 mg feeding tube 1600 baclofen 20 mg tablet 20 mg feeding tube .every 6 hours Discontinued esomeprazole magnesium [Nexium Packet] 40 mg granules for susp in packet 40 mg G-tube 0830 famotidine [Pepcid] 20 mg tablet 20 mg feeding tube 0830 Referrals / Follow Up: Chente Conn MD [Primary Care Provider] - Disposition Disposition (needs filled in before D/C Order can be placed): Home, Self Care Charges/Coding Visit Charges Inpatient E&M: 66598 Disch Hosp >30min 12/13/221809 <Electronically signed by Donte Abebe DO> Cosigner Signature (if applicable): CC: Dr. Donte Abebe DO; Dr. Chente Conn MD~ Signed [facility] Work Phone: 1(404) 537-433310-22-2023 Discharge summary Author Donte Abebe [facility] December 13, 2022 12:47pm Note Date/Time December 13, 2022 1 2:43pm [facility] Medical Records Department [address] [place] [address] Instructions for Home/Discharge Instructions 12/13/22 1242 MR#: [id number] Acct: [id number] Name: KRISS MICHAEL Rep #:[id number] : 1980 42 From: Donte adam DO PCP: Dr. Chente Conn MD Status:AD M IN Discharge Instructions Diet Discharge Diet: No restrictions Activity Discharge Activity: Return to Normal Activity Follow Up Care Please Follow Up With: Chente Conn MD When: As needed Test Results: Test results from this visit will be discussed in further detail at your follow- up appointment, if applicable. Pending Tests Upon Discharge: None Discharge Plan Admission Admit Date/Time: 12/10/22 12:21 Primary Reason for Your Visit: upper GI bleed Attending Provider: Donte Abebe Primary Care Provider: Chente Conn Discharge Orders/Prescriptions Prescriptions: New sucralfate 1 gram Tablet 1 g G-tube 1HR_ACHS 30 Days Qty: 120 0RF Continued albuterol sulfate 2.5 mg /3 mL (0.083 %) solution for nebulization 2.5 mg inhalation Q4H PRN (Reason: Sob &/Or Wheezing) metoclopramide HCl 5 mg/5 mL solution 10 mg feeding tube 0830,1600,2100 phenobarbital 20 MG/5 ML elixir 60 mg G-tube 0830,2100 Cough Assist 1 dose .Route .MEDSUPPLY Rx Instructions: Inspiratory and Expiratory times of 20-40 seconds with a 1-2 second pause. oxygen concentrator 1 dose .Route .MEDSUPPLY Rx Instructions: As directed lactose-reduced food with fibr 0.06 gram-1.2 kcal/mL liquid 1,000 ml G-tube DAILY Patient Comments: PER PT HOME MED LIST: JEVITY 1.2 BENNY/ML 4.5-5 CARTONS PER DAY. APPROXIMATELY 1 LITER PER DAY. 55ML/HOUR TO 65ML DURING THE DAY. SLOW THIS DOWN TO 45 ML/HOUR AT NIGHT. gabapentin 250 MG/5 ML solution 500 mg G-tube 0000,0600,1200,1800 Patient Comments: PER PT HOME MED LIST: GABAPENTIN DOSING -IF MO'S HEART RATE IS LOW I DON'T ALWAYS GIVE THE WHOLE 10ML GABAPENTIN DOSE MY GUIDES ARE: PULSE <50: I MIGHT WAIT 1 HOUR FOR HIM TO BE MORE AWAKE. GIVE 4 ML PULSE IN THE 50'S: GIVE 5ML OR 6 ML PULSE IN THE 60'S: GIVE 6ML TO 7ML PULSE 69>: GIVE THE WHOLE 10ML plecanatide 3 mg tablet 3 mg GT 0830 doxazosin 2 mg tablet 2 mg GT 0830 cholecalciferol (vitamin D3) 10 mcg/mL (400 unit/mL) drops 15 mcg feeding tube 0830 guaifenesin 200 mg/5 mL liquid 200 mg feeding tube 0830 PRN (Reason: COUGH/CONGESTION) alum-mag hydroxide-simeth 200-200-20 mg/5 mL suspension 5 ml PO 0000,0600,1200,1800 PRN (Reason: ANTACID) acetaminophen 650 mg/20.3 mL suspension 650 mg feeding tube 0000,0600,1200,1800 PRN (Reason: PAIN ) lorazepam [Ativan] 2 mg/mL solution 1 mg IM DAILY PRN (Reason: AGITATION ) cetirizine 1 mg/mL solution 10 mg feeding tube 1600 baclofen 20 mg tablet 20 mg feeding tube .every 6 hours Changed esomeprazole magnesium [Nexium Packet] 40 mg granules for susp in packet 40 mg G-tube BID 90 Days Qty: 180 1RF Discontinued famotidine [Pepcid] 20 mg tablet 20 mg feeding tube 0830 Referrals / Follow Up: Chente Conn MD [Primary Care Provider] - Disposition Disposition (needs filled in before D/C Order can be placed): Home, Self Care 12/13/22 1247<Electronically signed by Donte Abebe DO>Donte Abebe DO CC: Dr. Chente Conn MD ~ Signed [facility] Work Phone: 1([phone]) 483-541110-22-2023 Progress note Author Stefan Gregory [facility] December 13, 2022 11:49am Note Date/Time December 13, 2022 1 1:48am [facility] Medical Records Department [address] [place] [address] Progress Note - GI 12/13/22 1147 MR#: [id number] Acct: [id number] Name: KRISS MICHAEL Rep #:[id number] : 1980 42 From: Stefan Gregory DO PCP: Dr. Chente Conn MD Status:AD M IN Location: [place] [address] Subjective Subjective No issues with his tube feedings or vomiting overnight. Objective Data Objective Data Vital Signs: Vital Signs Temp Pulse Resp BP Pulse Ox O2 Del Method O2 Flow Rate 98.6 F 89 18 150/98 H 97 Mechanical Ventilator 4.5 12/13/22 07:56 12/13/22 07:56 12/13/22 07:56 12/13/22 07:56 12/13/22 08:25 12/13/22 09:00 12/13/22 08:25 FiO2 30 12/13/22 09:00 Oxygen Flow Rate (L/min) 4.5 Oxygen Delivery Method Mechanical Ventilator Weight: 170 lb 13.732 oz Body Mass Index (BMI) 33.3 Intake & Output: Intake and Output for Last 24 Hours 12/11/22 12/12/22 12/13/22 23:59 23:59 23:59 Intake Total 1828.33 / 1913.33 4080.00 / 4190.00 1168.33 / 1168.33 Output Total 382 / 507 125 / 125 Balance 1827.33 / 1882.33 3698.00 / 3683.00 1043.33 / 1043.33 Lab / Micro Data 12/13/22 07:45 12/13/22 07:45 Labs: Laboratory Results - last 24 hr 12/13/22 07:45: WBC 7.6, RBC 3.74 L, Hgb 9.9 L, Hct 32.7 L, MCV 87.4, MCH 26.5 L, MCHC 30.3 L, RDW Std Deviation 46.0 H, RDW Coeff of Emilee 14.4, Plt Count 166, MPV 9.9, Sodium 141, Potassium 3.4 L, Chloride 109 H, Carbon Dioxide 27.0, AnionGap 5, BUN 12, Creatinine 0.25 L, Estim Creat Clear Calc 277.78, Est GFR (MDRD) Af Amer 515, Est GFR (MDRD) Non-Af 426, BUN/Creatinine Ratio 47.2 H, Glucose 116H, Calcium 7.4 L Physical Exam Const alert Constitutional Narrative: no acute distress. HEENT normocephalic, head/scalp atraumatic, hearing grossly normal bilaterally, nasal mucous membranes and turbinates normal and moist oral mucous membranes Eyes PERRL, EOMs intact bilaterally and conjunctivae normal Neck full ROM, no lymphadenopathy and supple Lymph Lymphatic: no lymphadenopathy noted Chest inspection of chest normal Resp Resp Narrative: Trach mask in place, patient saturating well on supplemental O2, no increased work of breathing noted. Cardio regular rate, regular rhythm, no murmurs and peripheral pulses 2+ throughout GI GI Narrative: Colostomy in place without issue, G-tube in place without issue. Patient's abdomen soft, nontender, nondistended. Back/Spine normal ROM Extremity normal to inspection, full ROM and no pedal edema Skin no rashes or lesions noted Assessment & Plan Assessment/Plan (1) GI bleed: QUALIFIERS: GI bleed type/associated pathology: unspecified gastrointestinal hemorrhage type Qualified Code(s): K92.2 - Gastrointestinal hemorrhage, unspecified PLAN: Plan 42-year-old with history of severe cerebral palsy with severe spasticity, urinary catheter dependent and PEG dependent along with a end colostomy ,on constant baclofen therapy who presents with upper GI bleed. Hematemesis-patient is doing well from a GI bleed standpoint. Recommended continue PPI therapy. He also will need sulcal fate therapy likely crushed and placed into the stomach 3 times a day for the next 4 to 6 weeks. He is on octreotide at this time and that will need to be continued while he is in the hospital. His tube feeds can be resumed that his hemoglobin seems stable. 12/13-patient is doing well and seems to be in close back to his baseline. No problems with his ostomy. 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 Continue current management. Charges/Coding Visit Charges Inpatient E&M: 93297 Subs Hosp L3 12/13/22 1149 <Electronically signed by Stefan Gregory DO> Cosigner Signature (if applicable): CC: ~ Signed [facility] Work Phone: 1(471) 335-567410-21-2023 Progress note Author Stefan Gregory [facility] December 12, 2022 5:05pm Note Date/Time December 12, 2022 5 :02pm [facility] Medical Records Department [address] [place] [address] Progress Note - GI 12/12/22 1702 MR#: [id number] Acct: [id number] Name: KRISS MICHAEL Rep #:[id number] : 1980 42 From: Stefan Gergory DO PCP: Dr. Chente Conn MD Status:AD M IN Location: [place] [address] Subjective Subjective Patient underwent an upper endoscopy yesterday due to upper GI bleed. He was discovered to have bleeding in the gastric cardia of his stomach that was treated endoscopically. There is no bleeding overnight. Objective Data Objective Data Vital Signs: Vital Signs Temp Pulse Resp BP Pulse Ox O2 Del Method O2 Flow Rate 97.2 F L 95 14 144/99 H 97 Mechanical Ventilator 3.5 12/12/22 15:21 12/12/22 15:21 12/12/22 15:21 12/12/22 15:21 12/12/22 15:21 12/12/22 15:12/12/22 11:15 FiO2 30 12/12/22 14:00 Oxygen Flow Rate (L/min) 3.5 Oxygen Delivery Method Mechanical Ventilator Weight: 170 lb 13.732 oz Body Mass Index (BMI) 33.3 Intake & Output: Intake and Output for Last 24 Hours 12/10/22 12/11/22 12/12/22 23:59 23:59 23:59 Intake Total 1610 / 1610 1828.33 / 1913.33 2618.33 / 2618.33 Output Total 300 / 300 132 / 132 Balance 1310 / 1310 1827.33 / 1882.33 2486.33 / 2486.33 Lab / Micro Data 12/12/22 06:50 12/12/22 06:50 Labs: Laboratory Results - last 24 hr 12/12/22 06:50: WBC 10.1, RBC 3.78 L, Hgb 10.0 L, Hct 33.2 L, MCV 87.8, MCH 26.5L, MCHC 30.1 L, RDW Std Deviation 46.7 H, RDW Coeff of Emilee 14.6, Plt Count 187, MPV 10.4, Sodium 151 H, Potassium 3.3 L, Chloride 117 H, Carbon Dioxide 27.0, Anion Gap 7, BUN 19 H, Creatinine 0.30 L, Estim Creat Clear Calc 231.48, Est GFR(MDRD) Af Amer 424, Est GFR (MDRD) Non-Af 350, BUN/Creatinine Ratio 63.1 H, Glucose 129 H, Calcium 7.8 L Physical Exam Const alert Constitutional Narrative: no acute distress. HEENT normocephalic, head/scalp atraumatic, hearing grossly normal bilaterally, nasal mucous membranes and turbinates normal and moist oral mucous membranes Eyes PERRL, EOMs intact bilaterally and conjunctivae normal Neck full ROM, no lymphadenopathy and supple Lymph Lymphatic: no lymphadenopathy noted Chest inspection of chest normal Resp Resp Narrative: Trach mask in place, patient saturating well on supplemental O2, no increased work of breathing noted. Cardio regular rate, regular rhythm, no murmurs and peripheral pulses 2+ throughout GI GI Narrative: Colostomy in place without issue, G-tube in place without issue. Patient's abdomen soft, nontender, nondistended. Back/Spine normal ROM Extremity normal to inspection, full ROM and no pedal edema Skin no rashes or lesions noted Assessment & Plan Assessment/Plan (1) GI bleed: QUALIFIERS: GI bleed type/associated pathology: unspecified gastrointestinal hemorrhage type Qualified Code(s): K92.2 - Gastrointestinal hemorrhage, unspecified PLAN: Plan 42-year-old with history of severe cerebral palsy with severe spasticity, urinary catheter dependent and PEG dependent along with a end colostomy ,on constant baclofen therapy who presents with upper GI bleed. Hematemesis-patient is doing well from a GI bleed standpoint. Recommended continue PPI therapy. He also will need sulcal fate therapy likely crushed and placed into the stomach 3 times a day for the next 4 to 6 weeks. He is on octreotide at this time and that will need to be continued while he is in the hospital. His tube feeds can be resumed that his hemoglobin seems stable. Charges/Coding Visit Charges Inpatient E&M: 86861 Subs Hosp L3 12/12/22 1705 <Electronically signed by Stefan Gregory DO> Cosigner Signature (if applicable): CC: ~ Signed [facility] Work Phone: [phone] 176-161710-21-2023 Progress note Author Donte Abebe [facility] December 12, 2022 2:28pm Note Date/Time December 12, 2022 2 :27pm [facility] Medical Records Department [address] [place] [address] Progress Note - Hospitalist 12/12/22 1423 MR#: [id number] Acct: [id number] Name: KRISS MICHAEL Rep #:[id number] : 1980 42 From: Donte adam DO PCP: Dr. Chente Conn MD Status:AD M IN [facility] Reason for Visit Reason for Visit: Diagnoses Gastrointestinal hemorrhage, unspecified (12/10/22) Subjective Subjective Patient seen at bedside this morning, mom present. Patient's mom states that yunier had multiple episodes of small vomitus overnight and this morning. Some of the vomitus has appeared to be blood-tinged. Has been getting Zofran about every 8 hours, but does not seem to be providing much relief. Per mom, patient appears mildly uncomfortable but has been doing okay. No other acute concerns this morning. Objective Data Objective Data Vital Signs: Vital Signs Temp Pulse Resp BP Pulse Ox O2 Del Method O2 Flow Rate 98.9 F 89 16 109/77 97 Mechanical Ventilator 3.5 12/12/22 12:28 12/12/22 12:28 12/12/22 12:28 12/12/22 12:28 12/12/22 12:28 12/12/22 12:28 12/12/22 11:15 FiO2 30 12/12/22 12:28 Oxygen Flow Rate (L/min) 3.5 Oxygen Delivery Method Mechanical Ventilator Weight: 77.5 kg Body Mass Index (BMI) 33.3 Intake & Output: Intake and Output for Last 24 Hours 12/10/22 12/11/22 12/12/22 23:59 23:59 23:59 Intake Total 1610 / 1610 1828.33 / 1913.33 2214.99 / 2214.99 Output Total 300 / 300 32 / 32 Balance 1310 / 1310 1827.33 / 1882.33 2182.99 / 2182.99 Lab / Micro Data 12/12/22 06:50 12/12/22 06:50 Labs: Laboratory Results - last 24 hr 12/12/22 06:50: WBC 10.1, RBC 3.78 L, Hgb 10.0 L, Hct 33.2 L, MCV 87.8, MCH 26.5L, MCHC 30.1 L, RDW Std Deviation 46.7 H, RDW Coeff of Emilee 14.6, Plt Count 187, MPV 10.4, Sodium 151 H, Potassium 3.3 L, Chloride 117 H, Carbon Dioxide 27.0, Anion Gap 7, BUN 19 H, Creatinine 0.30 L, Estim Creat Clear Calc 231.48, Est GFR(MDRD) Af Amer 424, Est GFR (MDRD) Non-Af 350, BUN/Creatinine Ratio 63.1 H, Glucose 129 H, Calcium 7.8 L Physical Exam Const alert Constitutional Narrative: Alert, obese, nonverbal, lying comfortably in bed, no acute distress. HEENT normocephalic, head/scalp atraumatic, hearing grossly normal bilaterally, nasal mucous membranes and turbinates normal and moist oral mucous membranes Eyes PERRL, EOMs intact bilaterally and conjunctivae normal Neck full ROM, no lymphadenopathy and supple Lymph Lymphatic: no lymphadenopathy noted Chest inspection of chest normal Resp Resp Narrative: Trach mask in place, patient saturating well on supplemental O2, no increased work of breathing noted. Cardio regular rate, regular rhythm, no murmurs and peripheral pulses 2+ throughout GI GI Narrative: Colostomy in place without issue, G-tube in place without issue. Patient's abdomen soft, nontender, nondistended. 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 1. Upper GI bleed; chronic anemia, stable Known history of GI bleeding secondary to gastric ulcers. Had EGD done with for this about 2 to 3 years ago. Had been on PPI twice daily since then, was de-escalated to PPI daily sometime this summer per patient's family. Mother notably reports emptying colostomy bag yesterday, nonbloody and not consistent with melena. Hemoglobin 12.4 on admit, baseline hemoglobin around 10-11. BUN 16, creatinine 0.35, BUN to creatinine ratio 45. CT abdomen pelvis with IV contrast on 12/10/2022 showed known chronic changes, no focal acute inflammatory process. ? GI following. S/p EGD on 12/11 ? 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 IV bolus of 50 mcg of octreotide administered, followed by octreotide subcu 3 timesdaily. Patient unfortunately has had multiple episodes of small volume vomitus that appears blood-tinged. We will give 2 doses of IV PPI tonight tomorrow morning and continue octreotide subcu. Monitor CBC tomorrow morning. Zofran and Compazine as needed for nausea/vomiting. Continue to hold tube feeds. If improved tomorrow, okay for discharge home. Chronic medical conditions: ? Spastic cerebral palsy: Lives with his parents who take excellent care of him at home. Continue home baclofen, gabapentin, Ativan as needed. ? Chronic hypoxic respiratory failure s/p tracheostomy with ventilator dependence: Stable, at his baseline. Continue normal ventilator management. ? Seizure disorder: Continue home phenobarbital. DVT prophylaxis: SCDs CODE STATUS: Full code, verified Expected disposition: Home, tomorrow Total clinical time spent by myself addressing the patient's medical issues, reviewing all the data, and collaborating with patient's care team: 35 minutes. Charges/Coding Visit Charges Inpatient E&M: 40183 Subs Hosp L2 12/12/22 1428 <Electronically signed by Donte Abebe DO> Cosigner Signature (if applicable): CC: ~ Signed [facility] Work Phone: 1([phone]) 237-637610-20-2023 Progress note Author Donte [facility] December 11, 2022 5:31pm Note Date/Time December 11, 2022 5 :31pm [facility] Medical Records Department [address] [place] [address] Progress Note - Hospitalist 12/11/22 1723 MR#: [id number] Acct: [id number] Name: KRISS MICHAEL Rep #:[id number] : 1980 42 From: Donte adam DO PCP: Dr. Chente Conn MD Status:AD M IN Location: [place] [id number]- 1 Reason for Visit Reason for Visit: Diagnoses Gastrointestinal hemorrhage, unspecified (12/10/22) Subjective Subjective Patient seen at bedside afternoon, mom and dad present. Patient tolerated EGD well earlier today per Friend and his parents. Was resting comfortably in bed on my interview. No acute concerns currently. Objective Data Objective Data Vital Signs: Vital Signs Temp Pulse Resp BP Pulse Ox O2 Del Method O2 Flow Rate 99.6 F H 110 H 22 H 123/89 H 96 Mechanical Ventilator 8 12/11/22 15:38 12/11/22 15:38 12/11/22 15:38 12/11/22 15:38 12/11/22 15:38 12/11/22 15:38 12/11/22 12:44 FiO2 30 12/11/22 14:00 Oxygen Flow Rate (L/min) 8 Oxygen Delivery Method Mechanical Ventilator Weight: 77.5 kg Body Mass Index (BMI) 33.3 Intake & Output: Intake and Output for Last 24 Hours 12/09/22 12/10/22 12/11/22 23:59 23:59 23:59 Intake Total 1610 / 1610 1413.33 / 1413.33 Output Total 300 / 300 Balance 1310 / 1310 1413.33 / 1413.33 Lab / Micro Data 12/11/22 04:50 12/11/22 04:50 Labs: Laboratory Results - last 24 hr 12/10/22 15:04: WBC 7.9, RBC 4.23 L, Hgb 11.1 L, Hct 36.0 L, MCV 85.1, MCH 26.2 L, MCHC 30.8 L, RDW Std Deviation 43.7, RDW Coeff of Emilee 14.2, Plt Count 196, MPV 10.2 12/11/22 04:50: WBC 7.6, RBC 3.90 L, Hgb 10.3 L, Hct 33.5 L, MCV 85.9, MCH 26.4 L, MCHC 30.7 L, RDW Std Deviation 44.6 H, RDW Coeff of Emilee 14.4, Plt Count 183, MPV 9.9, Sodium 144, Potassium 2.8 L, Chloride 111 H, Carbon Dioxide 29.0, AnionGap 4 L, BUN 18, Creatinine 0.26 L, Estim Creat Clear Calc 267.09, Est GFR (MDRD) Af Amer 506, Est GFR (MDRD) Non-Af 418, BUN/Creatinine Ratio 69.8 H, Glucose 101, Calcium 7.8 L Physical Exam Const alert Constitutional Narrative: Alert, obese, nonverbal, lying comfortably in bed, no acute distress. HEENT normocephalic, head/scalp atraumatic, hearing grossly normal bilaterally, nasal mucous membranes and turbinates normal and moist oral mucous membranes Eyes PERRL, EOMs intact bilaterally and conjunctivae normal Neck full ROM, no lymphadenopathy and supple Lymph Lymphatic: no lymphadenopathy noted Chest inspection of chest normal Resp Resp Narrative: Trach mask in place, patient saturating well on supplemental O2, no increased work of breathing noted. Cardio regular rate, regular rhythm, no murmurs and peripheral pulses 2+ throughout GI GI Narrative: Colostomy in place without issue, G-tube in place without issue. Patient's abdomen soft, nontender, nondistended. 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 1. Upper GI bleed; chronic anemia, stable Known history of GI bleeding secondary to gastric ulcers. Had EGD done with for this about 2 to 3 years ago. Had been on PPI twice daily since then, was de-escalated to PPI daily sometime this summer per patient's family. Mother notably reports emptying colostomy bag yesterday, nonbloody and not consistent with melena. Hemoglobin 12.4 on admit, baseline hemoglobin around 10-11. BUN 16, creatinine 0.35, BUN to creatinine ratio 45. CT abdomen pelvis with IV contrast on 12/10/2022 showed known chronic changes, no focal acute inflammatory process. ? GI following. S/p EGD on 12/11 ? 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 IV bolus of 50 mcg of octreotide administered, followed by octreotide infusion. Started on PPI twice daily through G-tube. Monitor CBC tomorrow morning. Holding tube feeds for now. If patient remains stable overnight, likely okay for discharge home tomorrow. Chronic medical conditions: ? Spastic cerebral palsy: Lives with his parents who take excellent care of him at home. Continue home baclofen, gabapentin, Ativan as needed. ? Chronic hypoxic respiratory failure s/p tracheostomy with ventilator dependence: Stable, at his baseline. Continue normal ventilator management. ? Seizure disorder: Continue home phenobarbital. DVT prophylaxis: SCDs CODE STATUS: Full code, verified Expected disposition: Home, tomorrow Total clinical time spent by myself addressing the patient's medical issues, reviewing all the data, and collaborating with patient's care team: 35 minutes. Charges/Coding Visit Charges Inpatient E&M: 75574 Subs Hosp L2 12/11/22 2982 <Electronically signed by Donte Abebe DO> Cosigner Signature (if applicable): CC: ~ Signed [facility] Work Phone: 1(202) 157-281110-20-2023 Procedure [facility] 12-11-2022 Procedure [facility]10-19-2023 History and physical note Author Donte [facility] December 10, 2022 5:27pm Note Date/Time December 10, 2022 1 2:21pm [facility] Medical Records Department [address] [place] [address] H&P Exam - Hospitalist 12/10/22 1217 MR#: [id number] Acct: [id number] Name: KRISS MICHAEL Rep #:[id number] : 1980 42 From: Donte adam DO PCP: Dr. Chente Conn MD Status:AD M IN Location: [facility] [id number]- [id number] HPI - General General Date of Admission: 12/10/22 HPI Narrative KRISS MICHAEL, is a 42 M who presents [facility] Medical History (Updated 12/10/22 @ 15:05 by Natalie Jiménez) Acute dyspnea Anemia in chronic illness Anxiety Cerebral palsy Chronic respiratory failure Chronic respiratory failure with hypoxia Colostomy prolapse Debility Edema GERD (gastroesophageal reflux disease) History of seizure disorder Iron deficiency anemia Non-smoker Nonrheumatic mitral valve prolapse Obesity On home oxygen therapy Pseudomonas pneumonia Pulmonary embolism Pulmonary embolism on left (06/14/19) Redundant colon Seizures Thrombocytopenia Tracheostomy in place Upper GI bleeding (04/2020) Home Medications phenobarbital 20 mg/5 mL (4 mg/mL) oral elixir 60 mg G-tube 0830,2100 SEIZURES 02/19/17 [History Last Taken 04/24/20 21:00] metoclopramide HCl 5 mg/5 mL oral solution 10 mg feeding tube 0830,1600,2100 STOMACH 09/16/18 [History Last Taken 04/24/20 21:00] Cough Assist 1 dose .Route .MEDSUPPLY assist in clearing secretions 12/25/18 [History Last Taken Unknown] oxygen concentrator 1 dose .Route .MEDSUPPLY second unit, 4 LPM cont all modalities 12/25/18 [History Last Taken Unknown] gabapentin 250 mg/5 mL oral solution 500 mg G-tube 0000,0600,1200,1800 SEIZURES 09/26/19 [History Last Taken 04/25/20 06:00] albuterol sulfate 2.5 mg/3 mL (0.083 %) solution for nebulization 2.5 mg inhalation Q4H PRN Sob &/Or Wheezing 11/27/20 [History Last Taken Unknown] esomeprazole magnesium 40 mg granules delayed release for susp (Nexium Packet) 40 mg G-tube 0830 ACID REFLUX 11/27/20 [History Last Taken Unknown] famotidine 20 mg tablet (Pepcid) 20 mg feeding tube 0830 ACID REFLUX 11/27/20 [History Last Taken Unknown] lactose-reduced food with fiber 0.06 gram-1.2 kcal/mL oral liquid 1,000 ml G- tube DAILY NUTRITION 11/27/20 [History Last Taken Unknown] plecanatide 3 mg tablet 3 mg G-tube 0830 BOWELS 11/27/20 [History Last Taken Unknown] doxazosin 2 mg tablet 2 mg PO 0830 BLOOD PRESSURE 11/30/21 [History Last Taken Unknown] cholecalciferol (vitamin D3) 10 mcg/mL (400 unit/mL) oral drops 15 mcg feeding tube 0830 SUPPLEMENT 03/24/22 [History Last Taken Unknown] guaifenesin 200 mg/5 mL oral liquid 200 mg feeding tube 0830 PRN COUGH/CONGESTION 03/24/22 [History Last Taken Unknown] acetaminophen 650 mg/20.3 mL oral suspension 650 mg feeding tube 0000,0600,1200,1800 PRN PAIN 10/24/22 [History Last Taken Unknown] aluminum-mag hydroxide-simethicone 200 mg-200 mg-20 mg/5 mL oral susp 5 ml PO 0000,0600,1200,1800 PRN ANTACID 10/24/22 [History Last Taken Unknown] cetirizine 1 mg/mL oral solution 10 mg feeding tube 1600 ALLERGIES 10/24/22 [History Last Taken Unknown] lorazepam 2 mg/mL injection solution (Ativan) 1 mg IM DAILY PRN AGITATION 10/24/22 [History Last Taken Unknown] baclofen 20 mg tablet 20 mg feeding tube .every 6 hours muscle spasms 12/10/22 [History Last Taken Unknown] Allergy/AdvReac Type Severity Reaction Status Date / Time chlorhexidine Allergy Rash Verified 12/10/22 09:40 cisapride monohydrate Allergy Rash Verified 12/10/22 09:40 [From Propulsid] house dust Allergy NEEDS Verified 12/10/22 09:40 FOLLOW-UP codeine AdvReac hallucinati Verified 12/10/22 09:40 ons metronidazole [From Flagyl] AdvReac Rash Verified 12/10/22 09:40 morphine AdvReac Hallucinati Verified 12/10/22 09:40 ons Family History Mother Hepatitis C Hypertension HIV disease Father H/O heart artery stent CAD (coronary artery disease) Atrial fibrillation Hypertension Esophageal cancer Surgical History Colostomy in place Heel cord lengthening History of colostomy History of eye surgery History of gastrostomy tube placement History of open reduction and internal fixation (ORIF) procedure History of soft tissue release Status post insertion of intrathecal baclofen pump Social History household members: family housing: house current occupational status: disabled Smoking Status: Never smoker alcohol intake: never substance use type: does not use caffeine: No Vital Signs Vital Signs Vital Signs: 12/10/22 09:37 Temperature 97.7 F L Temperature Source Temporal Pulse Rate 122 H Respiratory Rate 30 H Blood Pressure 100/83 H Blood Pressure Mean 88 Pulse Ox 95 Oxygen Delivery Method Mechanical Ventilator Weight Weight: 93 kg Body Mass Index (BMI) 40.0 Results Lab / Micro Data 12/10/22 10:44 12/10/22 10:44 Labs: Laboratory Results - last 24 hr 12/10/22 10:44: WBC 11.6 H, RBC 4.77, Hgb 12.6 L, Hct 39.8 L, MCV 83.4, MCH 26.4L, MCHC 31.7 L, RDW Std Deviation 42.8, RDW Coeff of Emilee 14.0, Plt Count 228, MPV 10.0, Immature Gran % (Auto) 0.400, Neut % (Auto) 72.2 H, Lymph % (Auto) 19.2, Rabun % (Auto) 5.9, Eos % (Auto) 2.1, Baso % (Auto) 0.2, Absolute Neuts (auto) 8.4 H, Absolute Lymphs (auto) 2.23, Nucleated RBC % 0, PT 13.4, INR 1.0, APTT 35.6, Sodium 140, Potassium 3.8, Chloride 105, Carbon Dioxide 29.0, Anion Gap 6, BUN 16, Creatinine 0.35 L, Estim Creat Clear Calc 198.41, Est GFR (MDRD) Af Amer 352, Est GFR (MDRD) Non-Af 291, BUN/Creatinine Ratio 45.3 H, Glucose 109H, Calcium 8.6, Total Bilirubin 0.20, AST 19, ALT 29, Alkaline Phosphatase 144 H, Total Protein 8.7 H, Albumin 3.3, Globulin 5.4 H, Albumin/Globulin Ratio 0.6 L, Lipase 58 Radiology Impression Abdomen/Pelvis CT 12/10/22 09:59 IMPRESSION: 1. Status post left hemicolectomy with left lower quadrant colostomy. 2. Parastomal herniation of small bowel loops adjacent to colostomy site without evidence of small bowel obstruction. 3. Distention or thickening of the rectal pouch distal to the colostomy sutures unchanged. 4. Otherwise no focal acute inflammatory process. Electronically Signed: Edis Dhaliwal MD at 11:47 EDT , Chest X-Ray 12/10/22 11:22 IMPRESSION: No radiographic evidence of acute cardiopulmonary disease. Electronically Signed: Edis Dhaliwal MD at 11:35 EDT , Assessment & Plan Assessment/Plan (1) GI bleed: QUALIFIERS: GI bleed type/associated pathology: unspecified gastrointestinal hemorrhage type Qualified Code(s): K92.2 - Gastrointestinal hemorrhage, unspecified PLAN: Plan GI bleed?suspect upper with coffee-ground emesis, n.p.o., GI following, PPI drip, hemoglobin is stable, actually looks a little bit dry and could probably use some IV fluids, monitor, CBC daily PCU, inpatient Home meds?Tylenol, albuterol, baclofen, cetirizine, doxazosin, esomeprazole daily, Pepcid daily, gabapentin 500 4 times daily, guaifenesin, Ativan as needed, metoclopramide, phenobarbital, plecanatide Patient is a 42-year-old male with 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 1. Suspected upper GI bleed; chronic anemia, stable Known history of GI bleeding secondary to gastric ulcers. Had EGD done with for this about 2 to 3 years ago. Had been on PPI twice daily since then, was de-escalated to PPI daily sometime this summer per patient's family. Mother notably reports emptying colostomy bag yesterday, nonbloody and not consistent with melena. Hemoglobin 12.4 on admit, baseline hemoglobin around 10-11. BUN 16, creatinine 0.35, BUN to creatinine ratio 45. CT abdomen pelvis with IV contrast on 12/10/2022 showed known chronic changes, no focal acute inflammatory process. ? Admit under inpatient status to PCU. Gastroenterology consulted. Patient n.p.o. status, no feedings through PEG tube for now. IV PPI drip started in ED,continue for now. Monitor CBC tonight and tomorrow morning. Mild tachycardia and appears somewhat dry on admit, will continue maintenance fluids for now. Chronic medical conditions: ? Spastic cerebral palsy: Lives with his parents who take excellent care of him at home. Continue home baclofen, gabapentin, Ativan as needed. ? Chronic hypoxic respiratory failure s/p tracheostomy with ventilator dependence: Stable, at his baseline. Continue normal ventilator management. ? Seizure disorder: Continue home phenobarbital. DVT prophylaxis: SCDs CODE STATUS: Full code, verified Expected disposition: Home, TBD Total clinical time spent by myself addressing the patient's medical issues, reviewing all the data, and collaborating with patient's care team: 55 minutes. Charges/Coding Visit Charges Inpatient E&M: 24901 Init Hosp L2 12/10/22 1727 <Electronically signed by Donte Abebe DO> Cosigner Signature (if applicable): CC: Dr. Donte Abebe DO; Dr. Chente Conn MD~ Signed [facility] Work Phone: [phone] Discharge summary Author Miky Rahman [facility] December 10, 2022 4:28pm Note Date/Time December 10, 2022 1 0:15am [facility] Medical Records Department [address] [place] [address] Emergency Department Summary 12/10/22 MR#: [id number] Acct: [id number] Name: KRISS MICHAEL Rep #:[id number] : 1980 42 From: Miky Chiang PCP: Dr. Chente Conn MD Status:AD M IN Location: [place] [address] HPI HPI - GI History of Present Illness Chief Complaint: GI Bleed Informant: parent Narrative Narrative: Presents from EMS from home concerning coffee-ground emesis x4 since this morning. Parents are currently present. History of cerebral palsy, bedridden. Patient with PEG tube dependent on feedings since 1993. Patient had ostomy due to chronic constipation 2014. Previous baclofen pumps with poor healing therefore abdominal scars. Ended up with tracheostomy 2018. Patient vent dependent at night use a trach mask during the day. Mother reports was normal going to bed this morning with nursing aides noted emesis dark in color. Since then has 3 more episodes. Patient previous PE in 2019 not currently on anticoagulants. Multiple patient is on Nexium currently daily states decreased to this over the summer with PCP. Specialists are at [facility] with surgery. However mother states has seen surgery service here and has had an upper endoscopy here. Has been no fevers no cough. Patient on seizure medications, no seizure activity. Mother reports emptied the colostomy bag yesterday, nonbloody. Prior similar symptoms: Yes PFSH PFS Medical History (Updated 12/10/22 @ 15:05 by Natalie Jiménez) Acute dyspnea Anemia in chronic illness Anxiety Cerebral palsy Chronic respiratory failure Chronic respiratory failure with hypoxia Colostomy prolapse Debility Edema GERD (gastroesophageal reflux disease) History of seizure disorder Iron deficiency anemia Non-smoker Nonrheumatic mitral valve prolapse Obesity On home oxygen therapy Pseudomonas pneumonia Pulmonary embolism Pulmonary embolism on left (06/14/19) Redundant colon Seizures Thrombocytopenia Tracheostomy in place Upper GI bleeding (04/2020) Home Medications phenobarbital 20 mg/5 mL (4 mg/mL) oral elixir 60 mg G-tube 0830,2100 SEIZURES 02/19/17 [History Last Taken 04/24/20 21:00] metoclopramide HCl 5 mg/5 mL oral solution 10 mg feeding tube 0830,1600,2100 STOMACH 09/16/18 [History Last Taken 04/24/20 21:00] Cough Assist 1 dose .Route .MEDSUPPLY assist in clearing secretions 12/25/18 [History Last Taken Unknown] oxygen concentrator 1 dose .Route .MEDSUPPLY second unit, 4 LPM cont all modalities 12/25/18 [History Last Taken Unknown] gabapentin 250 mg/5 mL oral solution 500 mg G-tube 0000,0600,1200,1800 SEIZURES 09/26/19 [History Last Taken 04/25/20 06:00] albuterol sulfate 2.5 mg/3 mL (0.083 %) solution for nebulization 2.5 mg inhalation Q4H PRN Sob &/Or Wheezing 11/27/20 [History Last Taken Unknown] esomeprazole magnesium 40 mg granules delayed release for susp (Nexium Packet) 40 mg G-tube 0830 ACID REFLUX 11/27/20 [History Last Taken Unknown] famotidine 20 mg tablet (Pepcid) 20 mg feeding tube 0830 ACID REFLUX 11/27/20 [History Last Taken Unknown] lactose-reduced food with fiber 0.06 gram-1.2 kcal/mL oral liquid 1,000 ml G- tube DAILY NUTRITION 11/27/20 [History Last Taken Unknown] plecanatide 3 mg tablet 3 mg G-tube 0830 BOWELS 11/27/20 [History Last Taken Unknown] doxazosin 2 mg tablet 2 mg PO 0830 BLOOD PRESSURE 11/30/21 [History Last Taken Unknown] cholecalciferol (vitamin D3) 10 mcg/mL (400 unit/mL) oral drops 15 mcg feeding tube 0830 SUPPLEMENT 03/24/22 [History Last Taken Unknown] guaifenesin 200 mg/5 mL oral liquid 200 mg feeding tube 0830 PRN COUGH/CONGESTION 03/24/22 [History Last Taken Unknown] acetaminophen 650 mg/20.3 mL oral suspension 650 mg feeding tube 0000,0600,1200,1800 PRN PAIN 10/24/22 [History Last Taken Unknown] aluminum-mag hydroxide-simethicone 200 mg-200 mg-20 mg/5 mL oral susp 5 ml PO 0000,0600,1200,1800 PRN ANTACID 10/24/22 [History Last Taken Unknown] cetirizine 1 mg/mL oral solution 10 mg feeding tube 1600 ALLERGIES 10/24/22 [History Last Taken Unknown] lorazepam 2 mg/mL injection solution (Ativan) 1 mg IM DAILY PRN AGITATION 10/24/22 [History Last Taken Unknown] baclofen 20 mg tablet 20 mg feeding tube .every 6 hours muscle spasms 12/10/22 [History Last Taken Unknown] Allergy/AdvReac Type Severity Reaction Status Date / Time chlorhexidine Allergy Rash Verified 12/10/22 09:40 cisapride monohydrate Allergy Rash Verified 12/10/22 09:40 [From Propulsid] house dust Allergy NEEDS Verified 12/10/22 09:40 FOLLOW-UP codeine AdvReac hallucinati Verified 12/10/22 09:40 ons metronidazole [From Flagyl] AdvReac Rash Verified 12/10/22 09:40 morphine AdvReac Hallucinati Verified 12/10/22 09:40 ons Family History Mother Hepatitis C Hypertension HIV disease Father H/O heart artery stent CAD (coronary artery disease) Atrial fibrillation Hypertension Esophageal cancer Surgical History Colostomy in place Heel cord lengthening History of colostomy History of eye surgery History of gastrostomy tube placement History of open reduction and internal fixation (ORIF) procedure History of soft tissue release Status post insertion of intrathecal baclofen pump Social History household members: family housing: house current occupational status: disabled Smoking Status: Never smoker alcohol intake: never substance use type: does not use caffeine: No ROS ROS ED Review of Systems ROS Unobtainable: due to mental condition Gastrointestinal Gastrointestinal: Reports vomiting EXAM Physical Exam Const Vital Signs: 12/10/22 09:37 Temperature 97.7 F L Temperature Source Temporal Pulse Rate 122 H Respiratory Rate 30 H Blood Pressure 100/83 H Blood Pressure Mean 88 Pulse Ox 95 Oxygen Delivery Method Mechanical Ventilator Constitutional Narrative: Nonverbal, on ventilation with tracheostomy, remnants of coffee-ground emesis noted. HEENT Reports moist mucous membranes normocephalic and atraumatic Eyes PERRL, EOMs intact bilaterally and conjunctivae normal General Eye ED: Yes normal appearance of both eyes Neck no lymphadenopathy Neck Narrative: Tracheostomy vent, no active secretions. General: Negative for tenderness Chest Wall Chest: Negative for tenderness Resp normal respiratory effort and normal air movement Effort and Inspection: symmetric chest movement; Negative for respiratory distress Cardio regular rhythm and no murmurs Rate: tachycardic Peripheral Pulses: pulses 2+ throughout GI normal to inspection, nondistended, normoactive bowel sounds GI Narrative: Minimal distention, previous right-sided scar, PEG tube clean, dry, intact. Colostomy left lower quadrant with herniation, no current stools in the bag. Palpation: Negative for guarding or rebound tenderness present Extremity Extremity Narrative: Contractures of the lower extremities with atrophy General Extremety ED: Negative for tenderness Neuro Neuro Narrative: Nonverbal MDM MDM MDM Narrative Medical decision making narrative: Interventions / MDM: Differential diagnosis: Hematemesis, peptic ulcer disease Diagnosis considered but do not suspect: Bowel obstruction however negative CT My EKG interpretation: N/A Imaging independently reviewed and interpreted by myself: CT abdomen pelvis IV contrast, chronic changes, no surgical abdomen, read by radiology. External documents reviewed: Previous inpatient visits with endoscopy 2020. Test considered but not ordered:N/A ED course: Patient presenting no hematemesis coffee-ground emesis remnants. PEGtube dependent. Mother concerned and wanted his morning dose of medications which included the Nexium mixed in, therefore this was allowed with medications,additional 40 mg IV Protonix was ordered. There is no blood from the ostomy bag. Work-up initiated with labs CT scan fluids started. He is maintained on the ventilator. 1016: Reviewing records note he had endoscopy 2 years ago by surgery here, notedCandida esophagitis along with nonbleeding gastric ulcers. I spoke with on-callsurgeon Dr. Simon who knows the patient well. He recommended transfer withhis complex history especially of any surgical issues. Results are pending. 1040: CT scan negative for any surgical process or lab abs hemoglobin 12.6. There is no further emesis in the ED on reevaluation. Parents states patient has been managed here before and would like to stay here due to better care. Therefore reach out to GI doctor, Dr. Gregory, discussed patient's history with PEG tube and tracheostomy dependent, he would like to keep the patient n.p.o. He will follow the patient in the hospital. No drip at this time we will continue PPI IV. I spoke with hospitalist Dr. Abebe discussed patient's history and findings. Patient be placed on the PCU for further management. Re-evaluation: stable Disposition discussed with patient/family/significant other: Parents Case discussed with consulting clinician: General surgery, gastroenterology, hospitalist This note was generated with [employer] dictation software. It may contain incorrectwords, spelling, and punctuation that were not noted in checking the note beforesigning. Lab Data Labs: Laboratory Results - last 24 hr 12/10/22 10:44 WBC 11.6 H RBC 4.77 Hgb 12.6 L Hct 39.8 L MCV 83.4 MCH 26.4 L MCHC 31.7 L RDW Std Deviation 42.8 RDW Coeff of Emilee 14.0 Plt Count 228 MPV 10.0 Immature Gran % (Auto) 0.400 Neut % (Auto) 72.2 H Lymph % (Auto) 19.2 Rabun % (Auto) 5.9 Eos % (Auto) 2.1 Baso % (Auto) 0.2 Absolute Neuts (auto) 8.4 H Absolute Lymphs (auto) 2.23 Nucleated RBC % 0 PT 13.4 INR 1.0 APTT 35.6 Sodium 140 Potassium 3.8 Chloride 105 Carbon Dioxide 29.0 Anion Gap 6 BUN 16 Creatinine 0.35 L Estim Creat Clear Calc 198.41 Est GFR (MDRD) Af Amer 352 Est GFR (MDRD) Non-Af 291 BUN/Creatinine Ratio 45.3 H Glucose 109 H Calcium 8.6 Total Bilirubin 0.20 AST 19 ALT 29 Alkaline Phosphatase 144 H Total Protein 8.7 H Albumin 3.3 Globulin 5.4 H Albumin/Globulin Ratio 0.6 L Lipase 58 Radiography Diagnostic Testing: Clinical Impression(s) from Imaging Studies Abdomen/Pelvis CT 12/10/22 09:59 IMPRESSION: 1. Status post left hemicolectomy with left lower quadrant colostomy. 2. Parastomal herniation of small bowel loops adjacent to colostomy site without evidence of small bowel obstruction. 3. Distention or thickening of the rectal pouch distal to the colostomy sutures unchanged. 4. Otherwise no focal acute inflammatory process. Electronically Signed: Edis Dhaliwal MD at 11:47 EDT , Chest X-Ray 12/10/22 11:22 IMPRESSION: No radiographic evidence of acute cardiopulmonary disease. Electronically Signed: Edis Dhaliwal MD at 11:35 EDT , Discharge Plan Dx/Rx/DC Orders Clinical Impression: GI bleed, Cerebral palsy, Hematemesis Disposition Disposition: Acute Care Hospital [facility] Discharge Date/Time: 12/10/22 14:37 What to do if you have Problems For any increased pain, shortness of breath, bleeding, nausea or vomiting, chestpain, or any unexpected problems, contact your Primary Care Provider. Call [facility] ([phone]) or report to the closest Emergency Room. Call 911 if necessary. 12/10/22 0228 <Electronically signed by Miky Chiang> Cosigner Signature (if applicable): CC: Dr. Chente Conn MD ~ Signed [facility] Work Phone: [phone] Discharge summary Author Vanessa Roberts [facility] November 05, 2022 11:44am Note Date/Time November 05, 2022 11:38am [facility] Medical Records Department [address] [place] [address] Discharge Summary 11/05/22 1136 MR#: [id number] Acct: [id number] Name: KRISS MICHAEL Rep #:[id number] : 1980 42 From: Vanessa Roberts DO PCP: Dr. Chente Conn MD Status:AD M IN Location: ICU ICU07-1 Providers Date of Admission: 10/27/22 Date of Discharge: 11/05/22 Primary Care Physician: Dr. Chente Conn MD Reason For Visit: RESPITE STAY Diagnosis Discharge Diagnosis (1) Chronic respiratory failure with hypoxia: Status: Chronic Code(s): J96.11 - Chronic respiratory failure with hypoxia Medications at Discharge Home Medications phenobarbital 20 mg/5 mL (4 mg/mL) oral elixir 60 mg G-tube 0830,2100 SEIZURES 02/19/17 metoclopramide HCl 5 mg/5 mL oral solution 10 mg feeding tube 0830,1600,2100 STOMACH 09/16/18 Cough Assist 1 dose .Route .MEDSUPPLY assist in clearing secretions 12/25/18 oxygen concentrator 1 dose .Route .MEDSUPPLY second unit, 4 LPM cont all modalities 12/25/18 gabapentin 250 mg/5 mL oral solution 500 mg G-tube 0000,0600,1200,1800 SEIZURES 09/26/19 albuterol sulfate 2.5 mg/3 mL (0.083 %) solution for nebulization 2.5 mg inhalation Q4H PRN Sob &/Or Wheezing 11/27/20 baclofen 5 mg/5 mL oral solution 4 mg G-tube 0000,0600,1200,1800 Spasticity 11/27/20 esomeprazole magnesium 40 mg granules delayed release for susp (Nexium Packet) 40 mg G-tube 0830 ACID REFLUX 11/27/20 famotidine 20 mg tablet (Pepcid) 20 mg feeding tube 0830 ACID REFLUX 11/27/20 lactose-reduced food with fiber 0.06 gram-1.2 kcal/mL oral liquid 1,000 ml G- tube DAILY NUTRITION 11/27/20 plecanatide 3 mg tablet 3 mg G-tube 0830 BOWELS 11/27/20 doxazosin 2 mg tablet 2 mg PO 0830 BLOOD PRESSURE 11/30/21 cholecalciferol (vitamin D3) 10 mcg/mL (400 unit/mL) oral drops 15 mcg feeding tube 0830 SUPPLEMENT 03/24/22 guaifenesin 200 mg/5 mL oral liquid 200 mg feeding tube 0830 PRN COUGH/CONGESTION 03/24/22 acetaminophen 650 mg/20.3 mL oral suspension 650 mg feeding tube 0000,0600,1200,1800 PRN PAIN 10/24/22 aluminum-mag hydroxide-simethicone 200 mg-200 mg-20 mg/5 mL oral susp 5 ml PO 0000,0600,1200,1800 PRN ANTACID 10/24/22 cetirizine 1 mg/mL oral solution 10 mg feeding tube 1600 ALLERGIES 10/24/22 lorazepam 2 mg/mL injection solution (Ativan) 1 mg IM DAILY PRN AGITATION 10/24/22 Hospital Course Operations None Summary of Care Provided Minutes Spent on Discharge: 18 Hospital Course: Patient is a 42-year-old white male who was directly admitted from home for respite care on 10/27/2022. The patient is ventilator dependent due to chronic respiratory failure from cerebral palsy with spastic quadriplegia and lives withhis parents. He was brought in for respite care as his father had surgery for esophageal cancer at [facility]. Overall he is remained incredibly stable and has had no issues for his hospitalization. He was maintained on his home respiratory care, medications, and tube feed without any issues. Family was able to pick him up and take him home for ongoing care as his father is stabilized at home from the hospital on 11/05/2022. Discharge diagnoses: Chronic hypoxic respiratory failure Spastic cerebral palsy-quadriplegia History of upper GI bleed secondary to gastric ulcers History of esophagitis History of candidal esophagitis Chronic anemia Chronic constipation History of seizure disorder Physical Exam Const alert and no apparent distress; Negative for average body habitus or healthy appearing Constitutional Narrative: Obese, middle-aged, white male, lying in bed, eyes are open and patient appears comfortable General Appearance: comfortable and well kempt Orientation / Consciousness: awake Exam Limitations: other limitations Nutritional Appearance: obese HEENT normocephalic, head/scalp atraumatic, moist oral mucous membranes and oropharynxnormal Neck Neck Narrative: Trach in place Resp normal respiratory effort, no retractions, no use of accessory muscles and clearto auscultation bilaterally Resp Narrative: Patient on T-piece Auscultation: Negative for crackles, rhonchi or wheezes Cardio regular rate, regular rhythm, S1 normal heart sound, S2 normal heart sound, no murmurs, no rub, no gallops and no clicks GI normal to inspection, nondistended, normoactive bowel sounds, soft to palpation and non-tender GI Narrative: PEG tube in place-clean and dry with no surrounding irritation or drainage Extremity normal capillary refill, no clubbing, cyanosis or edema and no calf tenderness Neuro Neuro Narrative: Significant contractures noted in all 4 extremities related to cerebral palsy Sensorium / Orientation: awake and alert Speech: Negative for speech normal Motor Exam: Negative for strength 5/5 throughout Psych Psych Narrative: Unable to his status however patient appears calm at this time Weight / BMI Weight Weight: 76 kg Body Mass Index (BMI) 32.8 Meaningful Use Info Meaningful Use Diagnoses (Choose all that apply): None applicable Discharge Plan Admission Admit Date/Time: 10/27/22 14:12 Primary Reason for Your Visit: Respite care Attending Provider: Vanessa Roberts Primary Care Provider: Chente Conn Consulting Providers: Camacho Gonzalez; Barry Young Nana Yaa; Michael Posadas Discharge Orders/Prescriptions Prescriptions: Continued albuterol sulfate 2.5 mg /3 mL (0.083 %) solution for nebulization 2.5 mg inhalation Q4H PRN (Reason: Sob &/Or Wheezing) esomeprazole magnesium [Nexium Packet] [address] for susp in packet 40 mg G-tube 0830 famotidine [Pepcid] 20 mg tablet 20 mg feeding tube 0830 metoclopramide HCl 5 mg/5 mL solution 10 mg feeding tube 0830,1600,2100 phenobarbital 20 MG/5 ML elixir 60 mg G-tube 0830,2100 Cough Assist 1 dose .Route .MEDSUPPLY Rx Instructions: Inspiratory and Expiratory times of 20-40 seconds with a 1-2 second pause. oxygen concentrator 1 dose .Route .MEDSUPPLY Rx Instructions: As directed baclofen 5 mg/5 mL solution 4 mg G-tube 0000,0600,1200,1800 lactose-reduced food with fibr 0.06 gram-1.2 kcal/mL liquid 1,000 ml G-tube DAILY Patient Comments: PER PT HOME MED LIST: JEVITY 1.2 BENNY/ML 4.5-5 CARTONS PER DAY. APPROXIMATELY 1 LITER PER DAY. 55ML/HOUR TO 65ML DURING THE DAY. SLOW THIS DOWN TO 45 ML/HOUR AT NIGHT. gabapentin 250 MG/5 ML solution 500 mg G-tube 0000,0600,1200,1800 Patient Comments: PER PT HOME MED LIST: GABAPENTIN DOSING -IF MO'S HEART RATE IS LOW I DON'T ALWAYS GIVE THE WHOLE 10ML GABAPENTIN DOSE MY GUIDES ARE: PULSE <50: I MIGHT WAIT 1 HOUR FOR HIM TO BE MORE AWAKE. GIVE 4 ML PULSE IN THE 50'S: GIVE 5ML OR 6 ML PULSE IN THE 60'S: GIVE 6ML TO 7ML PULSE 69>: GIVE THE WHOLE 10ML plecanatide 3 mg tablet 3 mg GT 0830 doxazosin 2 mg tablet 2 mg GT 0830 cholecalciferol (vitamin D3) 10 mcg/mL (400 unit/mL) drops 15 mcg feeding tube 0830 guaifenesin 200 mg/5 mL liquid 200 mg feeding tube 0830 PRN (Reason: COUGH/CONGESTION) alum-mag hydroxide-simeth 200-200-20 mg/5 mL suspension 5 ml PO 0000,0600,1200,1800 PRN (Reason: ANTACID) acetaminophen 650 mg/20.3 mL suspension 650 mg feeding tube 0000,0600,1200,1800 PRN (Reason: PAIN ) lorazepam [Ativan] 2 mg/mL solution 1 mg IM DAILY PRN (Reason: AGITATION ) cetirizine 1 mg/mL solution 10 mg feeding tube 1600 Referrals / Follow Up: Chente Conn MD [Primary Care Provider] - See Referral Note (As needed) Disposition Disposition (needs filled in before D/C Order can be placed): Home, Self Care Charges/Coding Visit Charges Inpatient E&M: 70799 Disch Hosp 11/05/22 1147 <Electronically signed by Vanessa Roberts DO> Cosigner Signature (if applicable): CC: Dr. Chente Conn MD; Dr. Vanessa Roberts DO~ Signed [facility] Work Phone: [phone]) 447-869909-13-2023 Progress note Author Vanessa Roberts [facility] November 04, 2022 2:07pm Note Date/Time November 04, 2022 2:07pm [facility] Medical Records Department [address] [address] Progress Note - Hospitalist 11/04/22 1405 MR#: [id number] Acct: [id number] Name: KRISS MICHAEL Rep #:[id number] : 1980 42 From: Vanessa Roberts DO PCP: Dr. Chente Conn MD Status:AD M IN Location: ICU ICU07-1 Reason for Visit Reason for Visit: Respite care Subjective Subjective No issues overnight. Objective Data Objective Data Vital Signs: Vital Signs Temp Pulse Resp BP Pulse Ox O2 Del Method O2 Flow Rate 97.9 F 88 18 166/97 H 97 T-piece 6 11/04/22 09:00 11/04/22 09:00 11/04/22 09:00 11/04/22 09:00 11/04/22 09:00 11/04/22 09:00 11/04/22 09:00 FiO2 28 11/04/22 03:00 Oxygen Flow Rate (L/min) 6 Oxygen Delivery Method T-piece Weight: 76 kg Body Mass Index (BMI) 32.8 Intake & Output: Intake and Output for Last 24 Hours 11/02/22 11/03/22 11/04/22 23:59 23:59 23:59 Intake Total 400 / 550 600 / 600 100 / 100 Output Total 350 / 450 375 / 375 Balance 50 / 100 225 / 225 100 / 100 Physical Exam Const alert and no apparent distress Constitutional Narrative: Obese, middle-aged, white male, lying in bed, eyes are open and patient appears comfortable Resp normal respiratory effort, no retractions and no use of accessory muscles Cardio regular rate, regular rhythm, S1 normal heart sound, S2 normal heart sound, no murmurs, no rub, no gallops and no clicks GI normal to inspection, nondistended, normoactive bowel sounds and soft to palpation Assessment & Plan Assessment/Plan (1) Chronic respiratory failure with hypoxia: PLAN: Plan Chronic hypoxic respiratory failure secondary to cerebral palsy -Chronic trach and at baseline patient is T-piece during the day and trilogy vent dependent at night -Currently on baseline of 5-6 L T-piece -Monitor clinically for any signs of infection as patient has had recurrent infections previously -Continue with aggressive pulmonary toilet as ordered -Continue home guaifenesin History of upper GI bleed secondary to gastric ulcers/esophagitis -Continue home famotidine -Continue home esomeprazole History of candidal esophagitis -Completed Diflucan previously Chronic anemia -Hemoglobin is previously stable between 10 and 11 Chronic constipation -Continue home plecanatide History of seizure disorder -Continue home phenobarbital Cerebral palsy with spastic quadriplegia -Continue home medications -Continue tube feed via PEG DVT prophylaxis -SCDs CODE STATUS -Full code Disposition: -It sounds like family will be able to take him home tomorrow. Charges/Coding Visit Charges Inpatient E&M: 06650 Subs Hosp L1 11/04/22 140 <Electronically signed by Vanessa Roberts DO> Cosigner Signature (if applicable): CC: ~ Signed [facility] Work Phone: 1([phone]) 812-352709-12-2023 Progress note Author Vanessa Roberts [facility] November 03, 2022 1:40pm Note Date/Time November 03, 2022 1:40pm [facility] Medical Records Department [address] [place] [address] Progress Note - Hospitalist 11/03/22 1338 MR#: [id number] Acct: [id number] Name: KRISS MICHAEL Rep #:[id number] : 1980 42 From: Vanessa Roberts DO PCP: Dr. Chente Conn MD Status:AD M IN Location: ICU ICU07-1 Reason for Visit Reason for Visit: Respite care Subjective Subjective No issues overnight. Family does not want any lab work drawn. Objective Data Objective Data Vital Signs: Vital Signs Temp Pulse Resp BP Pulse Ox O2 Del Method O2 Flow Rate 97.0 F L 88 18 133/95 H 96 T-piece 6 11/03/22 09:00 11/03/22 09:00 11/03/22 09:00 11/03/22 09:00 11/03/22 09:00 11/03/22 10:00 11/03/22 10:00 FiO2 28 11/03/22 04:00 Oxygen Flow Rate (L/min) 6 Oxygen Delivery Method T-piece Weight: 76 kg Body Mass Index (BMI) 32.8 Intake & Output: Intake and Output for Last 24 Hours 11/01/22 11/02/22 11/03/22 23:59 23:59 23:59 Intake Total 100 / 100 400 / 550 550 / 550 Output Total 525 / 525 350 / 450 175 / 175 Balance -425 / -425 50 / 100 375 / 375 Physical Exam Const alert and no apparent distress; Negative for average body habitus or healthy appearing Constitutional Narrative: Obese, middle-aged, white male, lying in bed, significant contractures noted HEENT moist oral mucous membranes Neck Neck Narrative: Trach in place Resp normal respiratory effort, no retractions, no use of accessory muscles and clearto auscultation bilaterally Resp Narrative: Patient on T-piece Auscultation: Negative for crackles, rhonchi or wheezes Cardio regular rate, regular rhythm, S1 normal heart sound, S2 normal heart sound, no murmurs, no rub, no gallops and no clicks GI normal to inspection, nondistended, normoactive bowel sounds, soft to palpation and non-tender GI Narrative: PEG tube in place Extremity normal capillary refill, no clubbing, cyanosis or edema and no calf tenderness Neuro Neuro Narrative: Significant contractures noted in all 4 extremities related to cerebral palsy Sensorium / Orientation: awake and alert Speech: Negative for speech normal Motor Exam: Negative for strength 5/5 throughout Psych Psych Narrative: Unable to his status however patient appears calm at this time Assessment & Plan Assessment/Plan (1) Chronic respiratory failure with hypoxia: PLAN: Plan Chronic hypoxic respiratory failure secondary to cerebral palsy -Chronic trach and at baseline patient is T-piece during the day and trilogy vent dependent at night -Currently on baseline of 5-6 L T-piece -Monitor clinically for any signs of infection as patient has had recurrent infections previously -Continue with aggressive pulmonary toilet as ordered -Continue home guaifenesin History of upper GI bleed secondary to gastric ulcers/esophagitis -Continue home famotidine -Continue home esomeprazole History of candidal esophagitis -Completed Diflucan previously Chronic anemia -Hemoglobin is previously stable between 10 and 11 Chronic constipation -Continue home plecanatide History of seizure disorder -Continue home phenobarbital Cerebral palsy with spastic quadriplegia -Continue home medications -Continue tube feed via PEG DVT prophylaxis -SCDs CODE STATUS -Full code Disposition: -Awaiting family being able to medically take him home and care for him after father returns home from surgery Charges/Coding Visit Charges Inpatient E&M: 95257 Subs Hosp L1 11/03/22 1340 <Electronically signed by Vanessa Roberts DO> Cosigner Signature (if applicable): CC: ~ Signed [facility] Work Phone: [phone]) 977-696409-11-2023 Progress note Author Vanessa Roberts [facility] November 02, 2022 5:28pm Note Date/Time November 02, 2022 8:02am [facility] Medical Records Department [address] [place] [address] Progress Note - Hospitalist 11/02/22 0755 MR#: [id number] Acct: [id number] Name: KRISS MICHAEL Rep #:[id number] : 1980 42 From: Vanessa Roberts DO PCP: Dr. Chente Conn MD Status:AD M IN Location: ICU ICU07-1 Reason for Visit Reason for Visit: Respite care Subjective Subjective Patient is a six 42-year-old white male who was directly admitted from home for respite care on 10/27/2022. The patient is ventilator dependent due to chronic respiratory failure from cerebral palsy with spastic quadriplegia and lives withhis parents. He was brought in for respite care as his father is having surgery[facility]. Overall he is remained incredibly stable and has had no issues for his hospitalization. No issues overnight. Nursing states he is incredibly stable and has no needs. Objective Data Objective Data Vital Signs: Vital Signs Temp Pulse Resp BP Pulse Ox O2 Del Method O2 Flow Rate 97.2 F L 89 20 H 109/67 97 T-piece 5 11/02/22 03:00 11/02/22 05:11 11/02/22 05:11 11/02/22 03:00 11/02/22 07:00 11/02/22 07:00 11/02/22 07:00 FiO2 28 11/02/22 03:58 Oxygen Flow Rate (L/min) 5 Oxygen Delivery Method T-piece Weight: 76 kg Body Mass Index (BMI) 32.8 Intake & Output: Intake and Output for Last 24 Hours 10/31/22 11/01/22 11/02/22 23:59 23:59 23:59 Intake Total 150 / 150 100 / 100 100 / 100 Output Total 225 / 225 525 / 525 200 / 200 Balance -75 / -75 -425 / -425 -100 / -100 Physical Exam Const alert and no apparent distress; Negative for average body habitus or healthy appearing Constitutional Narrative: Obese, middle-aged, white male, lying in bed, significant contractures noted HEENT head/scalp atraumatic, moist oral mucous membranes and oropharynx normal Resp normal respiratory effort, no retractions, no use of accessory muscles and clearto auscultation bilaterally Auscultation: Negative for crackles, rhonchi or wheezes Cardio regular rate, regular rhythm, S1 normal heart sound, S2 normal heart sound, no murmurs, no rub, no gallops and no clicks GI normal to inspection, nondistended, normoactive bowel sounds, soft to palpation and non-tender Extremity no clubbing, cyanosis or edema Skin Skin Narrative: PEG tube in place and appears to be clean and dry and intact Neuro Neuro Narrative: Significant contractures noted in all 4 extremities related to cerebral palsy Sensorium / Orientation: awake and alert Speech: Negative for speech normal Motor Exam: Negative for strength 5/5 throughout Psych Psych Narrative: Unable to his status however patient appears calm at this time Assessment & Plan Assessment/Plan (1) Chronic respiratory failure with hypoxia: PLAN: Plan Chronic hypoxic respiratory failure secondary to cerebral palsy -Chronic trach and at baseline patient is T-piece during the day and trilogy vent dependent at night -Currently on baseline of 5 L T-piece -Monitor clinically for any signs of infection as patient has had recurrent infections previously -Continue with aggressive pulmonary toilet as ordered -Continue home guaifenesin History of upper GI bleed secondary to gastric ulcers/esophagitis -Continue home famotidine -Continue home esomeprazole History of candidal esophagitis -Completed Diflucan previously Chronic anemia -Hemoglobin is previously stable between 10 and 11 Chronic constipation -Continue home plecanatide History of seizure disorder -Continue home phenobarbital Cerebral palsy with spastic quadriplegia -Continue home medications -Continue tube feed via PEG DVT prophylaxis -SCDs CODE STATUS -Full code Charges/Coding Visit Charges Inpatient E&M: 94588 Subs Hosp L1 11/02/22 1728 <Electronically signed by Vanessa Roberts DO> Cosigner Signature (if applicable): CC: ~ Signed [facility] Work Phone: [phone]) 752-856309-10-2023 Progress note Author Michael Posadas [facility] November 01, 2022 9:04am Note Date/Time November 01, 2022 7:28am [facility] Medical Records Department [address] [place] [address] Progress Note - Hospitalist 11/01/22726 MR#: [id number] Acct: [id number] Name: KRISS MICHAEL Rep #:[id number] : 1980 42 From: Michael Posadas MD PCP: Dr. Chente Conn MD Status:AD M IN Location: ICU ICU- Reason for Visit Reason for Visit: Diagnoses Chronic respiratory failure with hypoxia (10/27/22) Subjective Subjective Patient seen sleeping comfortably. Per nursing staff no events overnight Objective Data Objective Data Vital Signs: Vital Signs Temp Pulse Resp BP Pulse Ox O2 Del Method O2 Flow Rate 96.9 F L 70 20 H 117/90 H 95 T-piece 5 11/01/22 03:00 11/01/22 05:12 11/01/22 03:00 11/01/22 03:00 11/01/22 05:12 11/01/22 03:00 11/01/22 03:00 FiO2 28 11/01/22 02:00 Oxygen Flow Rate (L/min) 5 Oxygen Delivery Method T-piece Weight: 76 kg Body Mass Index (BMI) 32.8 Intake & Output: Intake and Output for Last 24 Hours 10/30/22 10/31/22 11/01/22 23:59 23:59 23:59 Intake Total 200 / 200 150 / 150 0 / 0 Output Total 200 / 200 225 / 225 Balance 0 / 0 -75 / -75 0 / 0 Physical Exam Narrative GENERAL: Noncommunicative HEENT: Trach in place EYES; Anicteric, Normal Conjunctiva NECK; supple, normal thyroid, RESPIRATORY: Diminished to auscultation CARDIOVASCULAR: Regular S1 S2, GI: soft, normoactive bowel sounds, EXTREMITIES: Contractures, NEURO: Awake; noncommunicating Assessment & Plan Assessment/Plan (1) Chronic respiratory failure with hypoxia: PLAN: Plan Patient is a 42-year-old gentleman with history of cerebral palsy with quadriplegia and chronic respiratory failure vent dependent admitted for respitecare while his father undergoes surgery at an outside facility 1. Chronic respiratory failure ? Secondary to cerebral palsy patient is vent dependent. Current vent settings Tidal volume 350, respiratory rate of 10, PEEP of 8 and pressure support of 10 cm. Respiratory therapy on board 2. Cerebral palsy ? With spastic quadriplegia did continue supportive care including baclofen and gabapentin and Ativan 3. Seizure disorder ? On phenobarb and gabapentin and Ativan 4. Chronic dysphagia ? Status post PEG tube. Currently on Jevity 1.2 benny/ml rate 65 cc during the day and 45 cc. Denies with 100 cc water flushes throughout the day 5. GERD ? On PPI continue 6. DVT prophylaxis ? Family apparently declined DVT prophylaxis since patient is only here for respite care Time spent in the patient's overall evaluation,decision-making process, review of diagnostic data, adjustment of management, discussion with other providers, nursing nursing and ancillary staff involved in patient's care documentation, 35Minutes Charges/Coding Visit Charges Inpatient E&M: 65180 Subs Hosp L2 11/01/22 0904 <Electronically signed by Michael Posadas MD> Cosigner Signature (if applicable): CC: ~ Signed [facility] Work Phone: [phone]) 630-729209-09-2023 Progress note Author Michael Posadas [facility] October 31, 2022 10:50am Note Date/Time October 31, 2022 7:35am [facility] Medical Records Department [address] [place] [address] Progress Note - Hospitalist 10/31/22 0732 MR#: [id number] Acct: [id number] Name: KRISS MICHAEL Rep #:[id number] : 1980 42 From: Michael Posadas MD PCP: Dr. Chente Conn MD Status:AD M IN Location: ICU ICU07-1 Reason for Visit Reason for Visit: Diagnoses Chronic respiratory failure with hypoxia (10/27/22) Subjective Subjective Patient is a 42-year-old gentleman with history of cerebral palsy with quadriplegia and chronic respiratory failure vent dependent admitted for respitecare while his father undergoes surgery at an outside facility Objective Data Objective Data Vital Signs: Vital Signs Temp Pulse Resp BP Pulse Ox O2 Del Method O2 Flow Rate 97.5 F L 80 20 H 96/73 94 T-piece 5 10/31/22 05:00 10/31/22 05:00 10/31/22 05:00 10/31/22 05:00 10/31/22 06:00 10/31/22 06:00 10/31/22 05:00 FiO2 5 10/31/22 06:00 Oxygen Flow Rate (L/min) 5 Oxygen Delivery Method T-piece Weight: 76 kg Body Mass Index (BMI) 32.8 Intake & Output: Intake and Output for Last 24 Hours 10/29/22 10/30/22 10/31/22 23:59 23:59 23:59 Intake Total 1221 / 1421 200 / 200 Output Total 325 / 325 200 / 200 125 / 125 Balance 896 / 1096 0 / 0 -125 / -125 Physical Exam Narrative GENERAL: Noncommunicative HEENT: Trach in place EYES; Anicteric, Normal Conjunctiva NECK; supple, normal thyroid, RESPIRATORY: Diminished to auscultation CARDIOVASCULAR: Regular S1 S2, GI: soft, normoactive bowel sounds, EXTREMITIES: Contractures, NEURO: Awake; noncommunicating Assessment & Plan Assessment/Plan (1) Chronic respiratory failure with hypoxia: PLAN: Plan Patient is a 42-year-old gentleman with history of cerebral palsy with quadriplegia and chronic respiratory failure vent dependent admitted for respitecare while his father undergoes surgery at an outside facility 1. Chronic respiratory failure ? Secondary to cerebral palsy patient is vent dependent. Current vent settings Tidal volume 350, respiratory rate of 10, PEEP of 8 and pressure support of 10 cm. Respiratory therapy on board 2. Cerebral palsy ? With spastic quadriplegia did continue supportive care including baclofen and gabapentin and Ativan 3. Seizure disorder ? On phenobarb and gabapentin and Ativan 4. Chronic dysphagia ? Status post PEG tube. Currently on Jevity 1.2 benny/ml rate 65 cc during the day and 45 cc. Denies with 100 cc water flushes throughout the day 5. GERD ? On PPI continue 6. DVT prophylaxis ? Family apparently declined DVT prophylaxis since patient is only here for respite care Time spent in the patient's overall evaluation,decision-making process, review of diagnostic data, adjustment of management, discussion with other providers, nursing nursing and ancillary staff involved in patient's care documentation, 35Minutes Charges/Coding Visit Charges Inpatient E&M: 27045 Subs Hosp L2 10/31/22 1050 <Electronically signed by Michael Posadas MD> Cosigner Signature (if applicable): CC: ~ Signed [facility] Work Phone: 1(379) 519-165709-08-2023 Progress note Author Cindy [facility] October 30, 2022 10:37am Note Date/Time October 30, 2022 10:37am [facility] Medical Records Department [address] [address] Progress Note 10/30/22 1030 MR#: [id number] Acct: [id number] Name: KRISS MICHAEL Rep #:[id number] : 1980 42 From: Cindy Alexandre MD PCP: Dr. Chente Conn MD Status:AD M IN Location: ICU ICU07-1 Subjective Subjective Patient seen and examined. He was resting calmly. Unable to do review of systems. He is here for respite care. No active issues, per discussion with nurse. Objective Data Objective Data Vital Signs: Vital Signs Temp Pulse Resp BP Pulse Ox O2 Del Method O2 Flow Rate 97.9 F 73 18 124/98 H 99 Mechanical Ventilator 5 10/30/22 09:00 10/30/22 09:00 10/30/22 09:00 10/30/22 09:00 10/30/22 09:00 10/30/22 09:00 10/30/22 07:15 FiO2 28 10/30/22 09:00 Oxygen Flow Rate (L/min) 5 Oxygen Delivery Method Mechanical Ventilator Weight: 167 lb 8.821 oz Body Mass Index (BMI) 32.8 Intake & Output: Intake and Output for Last 24 Hours 10/28/22 10/29/22 10/30/22 23:59 23:59 23:59 Intake Total 1979 1221 / 1421 200 / 200 Output Total 600 / 600 325 / 325 Balance 1380 / 1380 896 / 1096 200 / 200 Physical Exam Const Constitutional Narrative: sleeping comfortably HEENT normocephalic and moist oral mucous membranes HEENT Narrative: macroglossia Eyes PERRL and EOMs intact bilaterally Neck no lymphadenopathy Lymph Lymphatic: no lymphadenopathy noted and no lymphedema noted Resp Resp Narrative: on ventilator via tracheostomy. 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 Tracheostomy in place. * Brought in for respite care as as well as been developed cancer surgery * Vent settings: Tidal volume 350, respiratory rate of 10, PEEP of 8 and process possible of 10 cm of water. * Respiratory therapist on board. * Breathing treatments bronchodilators. Titrate oxygen to maintain saturation above 90%. * #Cerebral palsy with positive quadriplegia: On baclofen, gabapentin and Ativan. #Seizure disorder: On phenobarbital and gabapentin as well as Ativan. #Chronic dysphagia: H * as not PEG tube in place. Tube feeds with Jevity 1.2 benny/ml * Can be increased to 65 cc/h during the day. This is slowed down to 45 mils per hour at night. Has water flushes of about 100 cc/h which is given mostly during the day. * Mother does not give any water flushes from 12 AM to 6 AM to enable him sleep. * * DVT prophylaxis: low risk. Family dOESNT want him to be on any DVT prophylaxis as he is just here fore respite care. Charges/Coding Visit Charges Inpatient E&M: 06779 Subs Hosp L2 10/30/22 1037 <Electronically signed by Cindy Alexandre MD> Cindy Alexandre MD Cosigner Signature (if applicable): CC: ~ Signed [facility] Work Phone: 1(339) 962-644209-07-2023 Progress note Author Barry Young [facility] October 29, 2022 8:31am Note Date/Time October 29, 2022 8:31am [facility] Medical Records Department [address] [place] [address] Progress Note - Hospitalist 10/29/22827 MR#: [id number] Acct: [id number] Name: KRISS MICHAEL Rep #:[id number] : 1980 42 From: Barry stover MD PCP: Dr. Chente Conn MD Status:AD M IN Location: ICU ICU07-1 Subjective Subjective No issues overnight doing well Objective Data Objective Data Vital Signs: Vital Signs Temp Pulse Resp BP Pulse Ox O2 Del Method O2 Flow Rate 97.8 F 92 19 H 138/94 H 97 T-piece 4 10/29/22 02:15 10/29/22 07:15 10/29/22 07:15 10/29/22 02:15 10/29/22 08:10 10/29/22 08:10 10/29/22 08:10 FiO2 28 10/29/22 02:15 Oxygen Flow Rate (L/min) 4 Oxygen Delivery Method T-piece Weight: 167 lb 8.821 oz Body Mass Index (BMI) 32.8 Intake & Output: Intake and Output for Last 24 Hours 10/28/22 10/29/22 10/30/22 03:59 03:59 03:59 Intake Total 1979 / 1979 1221 / 1221 Output Total 300 / 300 600 / 600 150 / 150 Balance -300 / -300 1380 / 1380 1071 / 1071 Physical Exam Narrative General: Alert, nonverbal, cooperative, No apparent distress HEENT: Atraumatic, PERRLA Oral: Moist Mucosa Neck: Supple, No JVD, T-piece in place Lungs: Clear to auscultation, Normal air movement, No rhonchi, No wheeze, No rales Cardiovascular: Regular rate, Regular Rhythm, Normal S1, Normal S2, No murmurs Abdomen: Soft, Non Tender, Non-Distended, No Hepato-splenomegaly Extremities: No edema, Capillary Refill Less than 3 Seconds Skin: No rashes, No breakdown Musculoskeletal: No Tenderness to Palpation of Joints or Extremities Neurological: Cerebral palsy at baseline Psych/Mental Status: Baseline affect Assessment & Plan Assessment/Plan (1) Chronic respiratory failure with hypoxia: PLAN: Plan 1. 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 We will continue with his home ventilator settings and his home instructions ? She is here for respite care secondary to his father needing surgery ? We will continue with his home ventilator settings at night ? Continue respiratory therapy evaluations and bronchodilator treatments 2. Seizure disorder/cerebral palsy with quadriplegia ? Continue with his home medications 3. Chronic dysphagia ? Continue with tube feeds per home instructions Charges/Coding Visit Charges Inpatient E&M: 04125 Subs Hosp L2 10/29/22 0831 <Electronically signed by Barry Young MD> Cosigner Signature (if applicable): CC: ~ Signed [facility] Work Phone: 1([phone]) [phone] History and physical note Author [facility] October 28, 2022 7:30pm Note Date/Time October 27, 2022 2:40pm [facility] Medical Records Department [address] [place] [id number] History & Physical Exam 10/27/22 1432 MR#: [id number] Acct: [id number] Name: KRISS MICHAEL Rep #:[id number] : 1980 42 From: Cindy Alexandre MD PCP: Dr. Chente Conn MD Status:AD M IN Location: ICU ICU07-1 HPI - General General Date of Admission: 10/27/22 Date of Service: 10/27/22 Chief Complaint: admitted for respite care HPI Narrative KRISS MICHAEL, is a 42 M with a PMH as outlined who presents as a direct admit on 10/27/2022 to be admitted for respite care. Patient is ventilator dependent due to chronic respiratory failure from cerebral palsy with spastic quadriplegia. He lives with his parents. He is being brought in today for respite care to enable his father have surgery for esophageal cancer at [facility]. [facility] Medical History (Updated 10/28/22 @ 08:[address] Barry Young MD) Acute dyspnea Anemia in chronic illness Cerebral palsy Chronic respiratory failure Chronic respiratory failure with hypoxia Colostomy prolapse Debility Edema History of seizure disorder Iron deficiency anemia Nonrheumatic mitral valve prolapse Obesity Pseudomonas pneumonia Pulmonary embolism on left (06/14/19) Redundant colon Thrombocytopenia Tracheostomy in place Upper GI bleeding (04/2020) Home Medications phenobarbital 20 mg/5 mL (4 mg/mL) oral elixir 60 mg G-tube 0830,2100 SEIZURES 02/19/17 [History Last Taken 04/24/20 21:00] metoclopramide HCl 5 mg/5 mL oral solution 10 mg feeding tube 0830,1600,2100 STOMACH 09/16/18 [History Last Taken 04/24/20 21:00] Cough Assist 1 dose .Route .MEDSUPPLY assist in clearing secretions 12/25/18 [History Last Taken Unknown] oxygen concentrator 1 dose .Route .MEDSUPPLY second unit, 4 LPM cont all modalities 12/25/18 [History Last Taken Unknown] gabapentin 250 mg/5 mL oral solution 500 mg G-tube 0000,0600,1200,1800 SEIZURES 09/26/19 [History Last Taken 04/25/20 06:00] albuterol sulfate 2.5 mg/3 mL (0.083 %) solution for nebulization 2.5 mg inhalation Q4H PRN Sob &/Or Wheezing 11/27/20 [History Last Taken Unknown] baclofen 5 mg/5 mL oral solution 4 mg G-tube 0000,0600,1200,1800 Spasticity 11/27/20 [History Last Taken Unknown] esomeprazole magnesium 40 mg granules delayed release for susp (Nexium Packet) 40 mg G-tube 0830 ACID REFLUX 11/27/20 [History Last Taken Unknown] famotidine 20 mg tablet (Pepcid) 20 mg feeding tube 0830 ACID REFLUX 11/27/20 [History Last Taken Unknown] lactose-reduced food with fiber 0.06 gram-1.2 kcal/mL oral liquid 1,000 ml G- tube DAILY NUTRITION 11/27/20 [History Last Taken Unknown] plecanatide 3 mg tablet 3 mg G-tube 0830 BOWELS 11/27/20 [History Last Taken Unknown] doxazosin 2 mg tablet 2 mg PO 0830 BLOOD PRESSURE 11/30/21 [History Last Taken Unknown] cholecalciferol (vitamin D3) 10 mcg/mL (400 unit/mL) oral drops 15 mcg feeding tube 0830 SUPPLEMENT 03/24/22 [History Last Taken Unknown] guaifenesin 200 mg/5 mL oral liquid 200 mg feeding tube 0830 PRN COUGH/CONGESTION 03/24/22 [History Last Taken Unknown] acetaminophen 650 mg/20.3 mL oral suspension 650 mg feeding tube 0000,0600,1200,1800 PRN PAIN 10/24/22 [History Last Taken Unknown] aluminum-mag hydroxide-simethicone 200 mg-200 mg-20 mg/5 mL oral susp 5 ml PO 0000,0600,1200,1800 PRN ANTACID 10/24/22 [History Last Taken Unknown] cetirizine 1 mg/mL oral solution 10 mg feeding tube 1600 ALLERGIES 10/24/22 [History Last Taken Unknown] lorazepam 2 mg/mL injection solution (Ativan) 1 mg IM DAILY PRN AGITATION 10/24/22 [History Last Taken Unknown] Allergy/AdvReac Type Severity Reaction Status Date / Time chlorhexidine Allergy Rash Verified 09/17/22 13:21 cisapride monohydrate Allergy Rash Verified 09/17/22 13:21 [From Propulsid] house dust Allergy NEEDS Verified 09/17/22 13:21 FOLLOW-UP codeine AdvReac hallucinati Verified 09/17/22 13:21 ons metronidazole [From Flagyl] AdvReac Rash Verified 09/17/22 13:21 morphine AdvReac Hallucinati Verified 09/17/22 13:21 ons Family History Mother Hepatitis C Hypertension HIV disease Father H/O heart artery stent CAD (coronary artery disease) Atrial fibrillation Hypertension Esophageal cancer Surgical History Colostomy in place Heel cord lengthening History of colostomy History of eye surgery History of gastrostomy tube placement History of open reduction and internal fixation (ORIF) procedure History of soft tissue release Status post insertion of intrathecal baclofen pump Social History household members: family housing: house current occupational status: disabled Smoking Status: Never smoker alcohol intake: never substance use type: does not use caffeine: No ROS ROS Narrative unable due to patient having cerebral palsy with spastic quadriplegia. He is nonverbal Physical Exam Const alert Constitutional Narrative: sitting comfortably in his wheelchair, nonverbal HEENT normocephalic and moist oral mucous membranes HEENT Narrative: macroglossia Eyes PERRL and EOMs intact bilaterally Neck no lymphadenopathy Lymph Lymphatic: no lymphadenopathy noted and no lymphedema noted Resp Resp Narrative: on ventilator via tracheostomy. Diminished breath sounds bibasally, no wheezes or crackles Cardio regular rate, regular rhythm, S1 normal heart sound, S2 normal heart sound and no murmurs GI normal to inspection, nondistended, normoactive bowel sounds, soft to palpation and non-tender GI Narrative: PEG tube in place Extremity normal capillary refill, no clubbing, cyanosis or edema and no calf tenderness Skin General Skin Exam: no breakdown Neuro Neuro Narrative: alert, nonverbal, moves all limbs spontaneously Assessment & Plan Assessment/Plan (1) Chronic respiratory failure with hypoxia: PLAN: Plan #Chronic respiratory failure due to cerebral palsy with spastic quadriplegia * admit to ICU under med surg status * Ventilator dependent at home. Tracheostomy in place. * Brought in for respite care as as well as been developed cancer surgery * Vent settings intubated. Tidal volume 350, respiratory rate of 10, PEEP of 8 and process possible of 10 cm of water. * Respiratory therapist on board. * Breathing treatments bronchodilators. Titrate oxygen to maintain saturation above 90%. * * #Cerebral palsy with positive quadriplegia: On baclofen, gabapentin and Ativan. #Seizure disorder: On phenobarbital and gabapentin as well as Ativan. #Chronic dysphagia: H * as not PEG tube in place. Tube feeds with Jevity 1.2 benny/ml * Can be increased to 65 cc/h during the day. This is slowed down to 45 mils per hour at night. Has water flushes of about 100 cc/h which is given mostly during the day. * Mother does not give any water flushes from 12 AM to 6 AM to enable him sleep. * DVT prophylaxis: low risk. Family didnt want him to be on any DVT prophylaxis alessia is just here fore respite care. Charges/Coding Visit Charges Inpatient E&M: 84304 Init Hosp L2 10/28/221929 <Electronically signed by Cindy Alexandre MD> Cosigner Signature (if applicable): CC: Dr. Chente Conn MD; Dr. Cindy Alexandre MD~ Signed [facility] Work Phone: 1(550) 229-955509-06-2023 Progress note Author Barry Young [facility] October 28, 2022 8:40am Note Date/Time October 28, 2022 8:40am [facility] Medical Records Department [address] [place] [address] Progress Note - Hospitalist 10/28/2235 MR#: [id number] Acct: [id number] Name: KRISS MICHAEL Rep #:[id number] : 1980 42 From: Barry stover MD PCP: Dr. Chente Conn MD Status:AD M IN Location: ICU ICU07-1 Subjective Subjective No issues overnight, doing well Objective Data Objective Data Vital Signs: Vital Signs Temp Pulse Resp BP Pulse Ox O2 Del Method O2 Flow Rate 97.0 F L 77 16 121/75 H 98 T-piece 4 10/28/22 08:25 10/28/22 08:25 10/28/22 08:25 10/28/22 08:25 10/28/22 08:25 10/28/22 08:25 10/28/22 08:25 FiO2 28 10/27/22 21:58 Oxygen Flow Rate (L/min) 4 Oxygen Delivery Method T-piece Weight: 167 lb 8.821 oz Body Mass Index (BMI) 32.8 Intake & Output: Intake and Output for Last 24 Hours 10/27/22 10/28/22 10/29/22 03:59 03:59 03:59 Output Total 300 / 300 Balance -300 / -300 Physical Exam Narrative General: Alert, nonverbal, cooperative, No apparent distress HEENT: Atraumatic, PERRLA Oral: Moist Mucosa Neck: Supple, No JVD, T-piece in place Lungs: Clear to auscultation, Normal air movement, No rhonchi, No wheeze, No rales Cardiovascular: Regular rate, Regular Rhythm, Normal S1, Normal S2, No murmurs Abdomen: Soft, Non Tender, Non-Distended, No Hepato-splenomegaly Extremities: No edema, Capillary Refill Less than 3 Seconds Skin: No rashes, No breakdown Musculoskeletal: No Tenderness to Palpation of Joints or Extremities Neurological: Cerebral palsy at baseline Psych/Mental Status: Baseline affect Assessment & Plan Assessment/Plan (1) Chronic respiratory failure with hypoxia: PLAN: Plan 1. 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 We will continue with his home ventilator settings and his home instructions ? She is here for respite care secondary to his father needing surgery ? We will continue with his home ventilator settings at night ? Continue respiratory therapy evaluations and bronchodilator treatments 2. Seizure disorder/cerebral palsy with quadriplegia ? Continue with his home medications 3. Chronic dysphagia ? Continue with tube feeds per home instructions Charges/Coding Visit Charges Inpatient E&M: 05327 Subs Hosp L2 10/28/22 0840 <Electronically signed by Barry Young MD> Cosigner Signature (if applicable): CC: ~ Signed [facility] Work Phone: [phone]) 208-971805-09-2023 Miscellaneous Notes* Telephone Encounter - Chichi Fowler RN - 06/30/2022 4:42 PM EDT [facility] nursing returned patient's mother Yue [...] e-mail. Mother will give order numbers to [facility]. Also recommended can apply stomahesive powder on mucosa. Advised maybe irritation from mucosa rubbing on pouch d/t prolapse vs the stool. Mom agreeable. Time spent: 30 minutes Chihci Fowler RN, BSN, CWOCN * Telephone Encounter - Amber Monreal RN - 06/30/2022 3:53 PM EDT [phone] Pt's mother called. She would like to discuss pt's stoma prolapse. [facility] De La Rosa [facility] June 22, 2022 8:24pm Note Date/Time June 22, 2022 6:47pm [facility] Medical Records Department [address] [place] [address] Emergency Department Summary 06/22/22 MR#: [id number] Acct: [id number] Name: KRISS MICHAEL Rep #:[id number] : 1980 42 From: Siddharth De La Rosa MD PCP: Dr. Chente Conn MD Status:RE G ER Location: ED HPI History of Present Illness Chief Complaint: Shortness of Breath Informant: parent (Mother and father) Narrative Narrative: Patient started having tachycardia and dyspnea today, and increase in tracheostomy secretions, and developed a fever that was measured by EMS as 101. He is nonverbal, family takes care of him at home, he does not take any oral food or fluids. They have been giving him free water flushes and tube feeds viahis G-tube, but they have noticed a decrease in his urine output in his diaper, they are not measuring this specifically obviously. No hematuria. [facility] Medical History Acute dyspnea Anemia in chronic illness Cerebral palsy Chronic respiratory failure Chronic respiratory failure with hypoxia Colostomy prolapse Debility Edema History of seizure disorder Iron deficiency anemia Nonrheumatic mitral valve prolapse Obesity Pseudomonas pneumonia Pulmonary embolism on left (06/14/19) Redundant colon Thrombocytopenia Tracheostomy in place Upper GI bleeding (04/2020) Home Medications phenobarbital 20 mg/5 mL (4 mg/mL) oral elixir 60 mg G-tube 5X/DAY pain 02/19/17[History Last Taken 04/24/20 21:00] Lactobacillus acidophilus 1 cap G-tube DAILY gut health 02/04/18 [History Last Taken 04/24/20 09:00] metoclopramide HCl 5 mg/5 mL oral solution 5 mg feeding tube TID thrush 09/16/18[History Last Taken 04/24/20 21:00] lorazepam 1 mg tablet 2 mg G-tube Q8 PRN Agitation 10/08/18 [History Last Taken 04/24/20 22:00] Cough Assist 1 dose .Route .MEDSUPPLY assist in clearing secretions 12/25/18 [History Last Taken Unknown] ferrous sulfate 15 mg iron (75 mg)/mL oral drops 75 mg G-tube DAILY supplement 12/25/18 [History Last Taken 04/24/20 16:00] oxygen concentrator 1 dose .Route .MEDSUPPLY second unit, 4 LPM cont all modalities 12/25/18 [History Last Taken Unknown] ondansetron HCl 4 mg tablet 5 ml feeding tube DAILY PRN Nausea 05/09/19 [History Last Taken Unknown] ascorbic acid (vitamin C) 500 mg/5 mL oral syrup 500 mg G-tube DAILY Check with primary doctor 08/04/19 [History Last Taken Unknown] gabapentin 250 mg/5 mL oral solution 500 mg G-tube 4X/DAY Check with primary doctor 09/26/19 [History Last Taken 04/25/20 06:00] albuterol sulfate 2.5 mg/3 mL (0.083 %) solution for nebulization 2.5 mg inhalation Q4H PRN Sob &/Or Wheezing 11/27/20 [History Last Taken Unknown] baclofen 5 mg/5 mL oral solution 20 mg G-tube Q6H Spasticity 11/27/20 [History Last Taken Unknown] esomeprazole magnesium 40 mg granules delayed release for susp (Nexium Packet) 40 mg G-tube BID Check with primary doctor 11/27/20 [History Last Taken Unknown] famotidine 20 mg tablet (Pepcid) 20 mg feeding tube LUNCH Check with primary doctor 11/27/20 [History Last Taken Unknown] lactose-reduced food with fiber 0.06 gram-1.2 kcal/mL oral liquid 1,000 ml G- tube DAILY Check with primary doctor 11/27/20 [History Last Taken Unknown] plecanatide 3 mg tablet 3 mg G-tube DAILY Check with primary doctor 11/27/20 [History Last Taken Unknown] simethicone 40 mg/0.6 mL oral drops,suspension 40 mg G-tube PRN PRN GAS 11/27/20[History Last Taken Unknown] doxazosin 2 mg tablet 2 mg PO DAILY Check with primary doctor 11/30/21 [History Last Taken Unknown] cholecalciferol (vitamin D3) 10 mcg/mL (400 unit/mL) oral drops 50 mcg feeding tube DAILY vitiamin 03/24/22 [History Last Taken Unknown] guaifenesin 200 mg/5 mL oral liquid 200 mg feeding tube Q6H PRN Cough 03/24/22 [History Last Taken Unknown] Allergy/AdvReac Type Severity Reaction Status Date / Time chlorhexidine Allergy Rash Verified 06/22/22 18:27 cisapride monohydrate Allergy Rash Verified 06/22/22 18:27 [From Propulsid] house dust Allergy NEEDS Verified 06/22/22 18:27 FOLLOW-UP codeine AdvReac hallucinati Verified 06/22/22 18:27 ons metronidazole [From Flagyl] AdvReac Rash Verified 06/22/22 18:27 morphine AdvReac Hallucinati Verified 06/22/22 18:27 ons Family History Mother Hepatitis C Hypertension Father CAD (coronary artery disease) Atrial fibrillation Hypertension H/O heart artery stent Surgical History Colostomy in place Heel cord lengthening History of colostomy History of eye surgery History of gastrostomy tube placement History of open reduction and internal fixation (ORIF) procedure History of soft tissue release Status post insertion of intrathecal baclofen pump Social History household members: family housing: house current occupational status: disabled Smoking Status: Never smoker alcohol intake: never substance use type: does not use caffeine: No ROS ROS ED Review of Systems ROS Unobtainable: due to mental condition EXAM Physical Exam Const Vital Signs: 06/22/22 18:20 06/22/22 18:28 06/22/22 18:41 Temperature 100 F H 99.9 F H Temperature Source Temporal Temporal Pulse Rate 125 H 93 Respiratory Rate 18 19 H Respiratory Effort Short of Breath Blood Pressure 92/62 98/70 Blood Pressure Mean 72 79 Pulse Ox 94 92 Oxygen Delivery Method Mechanical Ventilator Mechanical Ventilator Oxygen Flow Rate (L/min) 4 06/22/22 18:41 06/22/22 19:32 06/22/22 19:32 Temperature 97.3 F L Temperature Source Temporal Pulse Rate 91 91 Respiratory Rate 18 18 Respiratory Effort Blood Pressure 100/66 100/66 Blood Pressure Mean 77 77 Pulse Ox 93 93 Oxygen Delivery Method Mechanical Ventilator Mechanical Ventilator Mechanical Ventilator Oxygen Flow Rate (L/min) 06/22/22 20:05 Temperature 97.5 F L Temperature Source Temporal Pulse Rate 84 Respiratory Rate 18 Respiratory Effort Blood Pressure 102/69 Blood Pressure Mean 80 Pulse Ox 93 Oxygen Delivery Method Mechanical Ventilator Oxygen Flow Rate (L/min) Positive well nourished, well developed and obese General Appearance ED: well developed and NAD Nutritional Appearance: obese HEENT Reports moist mucous membranes normocephalic and atraumatic Eyes PERRL Neck full ROM and supple Resp normal respiratory effort and clear to auscultation bilaterally Resp Narrative: Clear throughout diminished symmetrically trachea midline, no secretions actively expressed via tracheostomy Cardio regular rate, regular rhythm and no murmurs Rate: tachycardic GI non-tender and non-distended GI Narrative: Colostomy with large prolapse into colostomy bag, and liquid stool output nonbloody tenderness. No signs of malperfusion. Auscultation: normoactive bowel sounds Palpation: soft Back/Spine no CVA tenderness General Back: other FROM Extremity normal to inspection General Extremety ED: Negative for edema, pulses abnormal or tenderness General Extremity: Negative for edema or pulses abnormal Neuro Neuro Narrative: Nonverbal not able to follow commands, baseline neurologic status per family Sensorium / Orientation: awake and alert Skin no rashes or lesions noted and no wounds MDM MDM MDM Narrative Medical decision making narrative: Septic work-up was obtained, the patient was tachycardic when he first was here and he did have a low-grade temperature. Mother had already treated that with Tylenol, so we basically gave him IV fluids and watched him while we awaited thework-up to return. He was breathing very comfortably initial evaluation, with clear lungs, and without excessive tracheostomy secretions. We observed him, and his breathing remained normal, at baseline according to parents, his blood pressure normalized with fluids, and he urinated a lot on his own. Parents state it is unusual for him to hold his urine like that, and they are wondering if he was uncomfortable because he was holding it. The work-up is basically normal. He does not have any evidence of sepsis, pneumonia 1 view on my interpretation which the radiology is in agreement with, and his urine is also not showing any signs of infection. He may have been a little prerenal. At thistime he is at his baseline. We did do blood and urine cultures, I do not think he needs any antibiotics at this time. The differential includes mucous plugging, a viral infection that gave him the fever, anxiety and/or discomfort from one of the above issues. Family is comfortable taking him home and they agree keeping him off of antibiotics unless they appear to be indicated, at thistime they do not. Lab Data Attestation: I reviewed the patient's lab results. Labs: Laboratory Results - last 24 hr 06/22/22 06/22/22 06/22/22 19:10 19:10 19:10 WBC 6.6 RBC 4.21 L Hgb 11.5 L Hct 36.5 L MCV 86.7 MCH 27.3 MCHC 31.5 L RDW Std Deviation 45.2 H RDW Coeff of Emilee 14.3 Plt Count 202 MPV 10.0 Immature Gran % (Auto) 0.200 Neut % (Auto) 67.2 Lymph % (Auto) 21.5 Rabun % (Auto) 8.5 Eos % (Auto) 2.4 Baso % (Auto) 0.2 Absolute Neuts (auto) 4.5 Absolute Lymphs (auto) 1.42 Nucleated RBC % 0 PT 13.0 INR 1.0 APTT 31.6 Sodium 139 Potassium 3.5 Chloride 107 Carbon Dioxide 25.0 Anion Gap 7 BUN 16 Creatinine 0.33 L Estim Creat Clear Calc 366.58 Est GFR (MDRD) Af Amer 383 Est GFR (MDRD) Non-Af 317 BUN/Creatinine Ratio 48.6 H Glucose 82 Lactic Acid Calcium 7.6 L Total Bilirubin 0.10 L AST 16 ALT 19 Alkaline Phosphatase 135 H Total Protein 7.2 Albumin 2.9 L Globulin 4.3 H Albumin/Globulin Ratio 0.7 L Urine Color Urine Clarity Urine pH Ur Specific [place] Urine Protein Urine Glucose (UA) Urine Ketones Urine Occult Blood Urine Nitrite Urine Bilirubin Urine Urobilinogen Ur Leukocyte Esterase Urine RBC Urine WBC Ur Squamous Epith Cells Urine Bacteria Urine Mucus 06/22/22 06/22/22 19:10 19:20 WBC RBC Hgb Hct MCV MCH MCHC RDW Std Deviation RDW Coeff of Emilee Plt Count MPV Immature Gran % (Auto) Neut % (Auto) Lymph % (Auto) Rabun % (Auto) Eos % (Auto) Baso % (Auto) Absolute Neuts (auto) Absolute Lymphs (auto) Nucleated RBC % PT INR APTT Sodium Potassium Chloride Carbon Dioxide Anion Gap BUN Creatinine Estim Creat Clear Calc Est GFR (MDRD) Af Amer Est GFR (MDRD) Non-Af BUN/Creatinine Ratio Glucose Lactic Acid 1.3 Calcium Total Bilirubin AST ALT Alkaline Phosphatase Total Protein Albumin Globulin Albumin/Globulin Ratio Urine Color Yellow Urine Clarity Sl Cldy Urine pH 8.0 Ur Specific [place] 1.010 Urine Protein 30 H Urine Glucose (UA) Normal Urine Ketones 5 H Urine Occult Blood Negative Urine Nitrite Negative Urine Bilirubin Negative Urine Urobilinogen Normal Ur Leukocyte Esterase 25 H Urine RBC 0 SEEN Urine WBC 0-5 SEEN Ur Squamous Epith Cells 0-5 SEEN Urine Bacteria 0 SEEN Urine Mucus 0 SEEN Radiography Diagnostic Testing: Clinical Impression(s) from Imaging Studies Chest X-Ray 06/22/22 18:50 IMPRESSION: No radiographic evidence of acute cardiopulmonary disease. Electronically Signed: Victor Manuel Hannah MD at 19:23 EDT Reading Location ID and State: [address] [place] [address] Tel , Service support , Rhythm Strip Rhythm Strip: Sinus Tach Rate: 109 Ectopy: None EKG Initial EKG: Attestation: I personally reviewed and interpreted this EKG as follows: Interpretation: No Acute Injury Pattern and Sinus Tachycardia (Otherwise normal EKG) Discharge Plan Triage Chief Complaint: Shortness of Breath ED Provider: Siddharth De La Rosa Dx/Rx/DC Orders Clinical Impression: Fever, Mild dehydration Instructions: ED FUO Adult Prescriptions: No Action albuterol sulfate 2.5 mg /3 mL (0.083 %) solution for nebulization 2.5 mg inhalation Q4H PRN (Reason: Sob &/Or Wheezing) esomeprazole magnesium [Nexium Packet] [address] for susp in packet 40 mg G-tube BID famotidine [Pepcid] 20 mg tablet 20 mg feeding tube LUNCH Rx Instructions: per NG simethicone 40 mg/0.6 mL drops,suspension 40 mg G-tube PRN PRN (Reason: GAS) Label Comments: gas metoclopramide HCl 5 mg/5 mL solution 5 mg feeding tube TID Label Comments: stomach phenobarbital 20 MG/5 ML elixir 60 mg G-tube 5X/DAY Label Comments: 20 mg/5 Lactobacillus acidophilus 1 EACH capsule 1 cap G-tube DAILY lorazepam 1 MG tablet 2 mg G-tube Q8 PRN (Reason: Agitation) Label Comments: TAKE ONE TABLET BY MOUTH THREE TIMES DAILY NEEDED ferrous sulfate 15 MG/ML drops 75 mg G-tube DAILY Cough Assist 1 dose .Route .MEDSUPPLY Rx Instructions: Inspiratory and Expiratory times of 20-40 seconds with a 1-2 second pause. oxygen concentrator 1 dose .Route .MEDSUPPLY Rx Instructions: As directed ondansetron HCl 4 MG tablet 5 ml feeding tube DAILY PRN (Reason: Nausea) baclofen 5 mg/5 mL solution 20 mg G-tube Q6H lactose-reduced food with fibr 0.06 gram-1.2 kcal/mL liquid 1,000 ml G-tube DAILY Rx Instructions: 50 ml/hr continuous ascorbic acid (vitamin C) 500 MG/5 ML syrup 500 mg G-tube DAILY Rx Instructions: take this medication with the iron supplement gabapentin 250 MG/5 ML solution 500 mg G-tube 4X/DAY plecanatide 3 mg tablet 3 mg GT DAILY doxazosin 2 mg tablet 2 mg GT DAILY cholecalciferol (vitamin D3) 10 mcg/mL (400 unit/mL) drops 50 mcg feeding tube DAILY Label Comments: GIVE 0.75ML VIA G-TUBEYONCE DAILY guaifenesin 200 mg/5 mL liquid 200 mg feeding tube Q6H PRN (Reason: Cough) Primary Care Provider: Chente Conn Referrals: Chente Conn MD [Primary Care Provider] - 1-2 Days if not improving Disposition Disposition: Home, Self Care What to do if you have Problems For any increased pain, shortness of breath, bleeding, nausea or vomiting, chestpain, or any unexpected problems, contact your Primary Care Provider. Call [facility] ([phone]) or report to the closest Emergency Room. Call 911 if necessary. 06/22/222023 <Electronically signed by Siddharth De La Rosa MD> Cosigner Signature (if applicable): CC: Dr. Chente Conn MD ~ Signed [facility] Work Phone: [phone] 395-451304-24-2023 NoteHNO ID: [id number] Author: Cassie Cui RN Service: ? Author [...] Requested samples from [employer] for Coloplast SenSura [place] MAXI Drainable pouch with soft outlet #[id number]. Order form provided. Also discussed use of [...] tape collar (cutting surface up to 3 1/2), high volume output pouch Current wearing time: [...] 1 hour 15 minutes Cassie BAL, RN, CWFirelands Regional [facility]04-24-2023 History of Present illness Narrative* Cassie Cui RN - 06/15/2022 5:51 PM EDT ET/WOCN Nursing Consult Topic: ET/WOCN Consultation Note [...] Uriah MAXI Drainable pouch with soft outlet #[id number]. Order form provided. Also discussed use of [...] effluent Current pouching system: Jazzmine Cohesive StomaWrap, Pep New Image flat flange with tape collar(cutting surface up to 3 1/2), high volume output pouch Current wearing time: [...] Time Increment: 1 hour 15 minutes Cassie LEVINN, RN, CWOCN * Cassie Cui RN - 06/15/2022 3:33 PM EDT The [address] [address] Patient: Kriss Michael Patient Address: [address] [place] [address] [place] [address] Preferred Gender: male Date of : 1980 Type of Stoma: End Descending Colostomy Diagnosis: Constipation K59.0 OSTOMY SUPPLY ORDER FORM One Piece Ostomy Pouch Item Type: Coloplast Post-op pouch with a window #[id number] 30 day use - 2 Boxes Coloplast SenSura [place] MAXI Drainable Pouch with Soft Outlet Transparent Cut-to-fit 4 #[id number] 30 dayuse - 1 Box Tonia Hollihesive #7706 30 day use - 2 Boxes Procare Abdominal binder (62-74) #[id number] 30 day use - 2 Binders OR Procare Abdominal binder (45-62) #[id number] 30 day use - 2 Binders Refills: 11 Attending Physician: Dr. Leavitt For immediate authorization, please contact the physician s office. [facility] Nurse: VALERIANO Peters, CWOCN SIGNATURE: Cassie Cui RN PATIENT NAME: Kriss Michael DATE: June 15, 2022 TIME: 3:34 PM CONTACT #: [phone] documented in this encounterLakehealth [facility]04-24-2023 NoteHNO ID: [id number] Author: Cassie Cui RN Service: ? Author Type: Registered Nurse Type: Progress Notes Filed: 06/30/2022 4:35 PM Note Text: The [address] [address] Patient: Kriss Michael Patient Address: [address] [place] [address] [place] [address] Preferred Gender: male Date of : 1980 Type of Stoma: End Descending Colostomy Diagnosis: Constipation K59.0 OSTOMY SUPPLY ORDER FORM Coloplast SenSura [place] MAXI Drainable Pouch with Soft Outlet Transparent Cut-to-fit 4 #[id number] 30 day use - 1 Box Coloplast Bed Drainage Bag #[id number] 30 day use-2 bags Recovery Auditor #[id number] 30 day use 1 Xavi Luna #7700 30 day use - 2 Boxes Procare Abdominal binder (62-74) #[id number] 30 day use - 2 Binders OR Procare Abdominal binder (45-62) #[id number] 30 day use - 2 Binders Refills: 11 Attending Physician: Dr. Leavitt For immediate authorization, please contact the physician?s office. [facility] Nurse: VALERIANO Peters, CWOCN Addendum by: VALERIANO Virgen, CWOCN SIGNATURE: Cassie Cui RN PATIENT NAME: Kriss Michael DATE: June 15, 2022 TIME: 3:34 PM CONTACT #: [phone]04[facility]21[facility] Munoz [facility] June 12, 2022 12:31pm Note Date/Time June 12, 2022 10: 51am [facility] Medical Records Department [address] [place] [address] Emergency Department Summary 06/12/22 MR#: [id number] Acct: [id number] Name: KRISS MICHAEL Rep #:[id number] : 1980 42 From: Naveen Hidalgo PCP: Dr. Chente Conn MD Status:RE G ER Location: ED HPI History of Present Illness Chief Complaint: General Illness Narrative Narrative: 42-year-old male here with generalized illness. Per the patient's family noted saturations in the mid 80s on home vent. Sats are now in the mid 90s. Family reports no recent illness or fever. Family further states patient had transienthypoxia down to 86%. They noted they did CoughAssist to the patient's vent, ultimately bagged the patient for few seconds when he improved and returned to baseline oxygen levels of 93 to 94%. Mom thinks it may have been a mucous plug but wants him checked out for COVID given recent sick contacts in the home. Also concerned about pneumonia given his history of recent mission for aspiration pneumonia. [facility] Medical History Acute dyspnea Anemia in chronic illness Cerebral palsy Colostomy prolapse Debility Edema History of seizure disorder Iron deficiency anemia Nonrheumatic mitral valve prolapse Obesity Pseudomonas pneumonia Pulmonary embolism on left (06/14/19) Redundant colon Thrombocytopenia Tracheostomy in place Upper GI bleeding (04/2020) Home Medications phenobarbital 20 mg/5 mL (4 mg/mL) oral elixir 60 mg G-tube 5X/DAY pain 02/19/17[History Last Taken 04/24/20 21:00] Lactobacillus acidophilus 1 cap G-tube DAILY gut health 02/04/18 [History Last Taken 04/24/20 09:00] metoclopramide HCl 5 mg/5 mL oral solution 5 mg feeding tube TID thrush 09/16/18[History Last Taken 04/24/20 21:00] lorazepam 1 mg tablet 2 mg G-tube Q8 PRN Agitation 10/08/18 [History Last Taken 04/24/20 22:00] Cough Assist 1 dose .Route .MEDSUPPLY assist in clearing secretions 12/25/18 [History Last Taken Unknown] ferrous sulfate 15 mg iron (75 mg)/mL oral drops 75 mg G-tube DAILY supplement 12/25/18 [History Last Taken 04/24/20 16:00] oxygen concentrator 1 dose .Route .MEDSUPPLY second unit, 4 LPM cont all modalities 12/25/18 [History Last Taken Unknown] ondansetron HCl 4 mg tablet 5 ml feeding tube DAILY PRN Nausea 05/09/19 [History Last Taken Unknown] ascorbic acid (vitamin C) 500 mg/5 mL oral syrup 500 mg G-tube DAILY Check with primary doctor 08/04/19 [History Last Taken Unknown] gabapentin 250 mg/5 mL oral solution 500 mg G-tube 4X/DAY Check with primary doctor 09/26/19 [History Last Taken 04/25/20 06:00] albuterol sulfate 2.5 mg/3 mL (0.083 %) solution for nebulization 2.5 mg inhalation Q4H PRN Sob &/Or Wheezing 11/27/20 [History Last Taken Unknown] baclofen 5 mg/5 mL oral solution 20 mg G-tube Q6H Spasticity 11/27/20 [History Last Taken Unknown] esomeprazole magnesium 40 mg granules delayed release for susp (Nexium Packet) 40 mg G-tube BID Check with primary doctor 11/27/20 [History Last Taken Unknown] famotidine 20 mg tablet (Pepcid) 20 mg feeding tube LUNCH Check with primary doctor 11/27/20 [History Last Taken Unknown] lactose-reduced food with fiber 0.06 gram-1.2 kcal/mL oral liquid 1,000 ml G- tube DAILY Check with primary doctor 11/27/20 [History Last Taken Unknown] plecanatide 3 mg tablet 3 mg G-tube DAILY Check with primary doctor 11/27/20 [History Last Taken Unknown] simethicone 40 mg/0.6 mL oral drops,suspension 40 mg G-tube PRN PRN GAS 11/27/20[History Last Taken Unknown] doxazosin 2 mg tablet 2 mg PO DAILY Check with primary doctor 11/30/21 [History Last Taken Unknown] cholecalciferol (vitamin D3) 10 mcg/mL (400 unit/mL) oral drops 50 mcg feeding tube DAILY vitiamin 03/24/22 [History Last Taken Unknown] guaifenesin 200 mg/5 mL oral liquid 200 mg feeding tube Q6H PRN Cough 03/24/22 [History Last Taken Unknown] Allergy/AdvReac Type Severity Reaction Status Date / Time cisapride monohydrate Allergy Rash Verified 06/12/22 10:38 [From Propulsid] house dust Allergy NEEDS Verified 06/12/22 10:38 FOLLOW-UP codeine AdvReac hallucinati Verified 06/12/22 10:38 ons metronidazole [From Flagyl] AdvReac Rash Verified 06/12/22 10:38 morphine AdvReac Hallucinati Verified 06/12/22 10:38 ons Family History Mother Hepatitis C Hypertension Father CAD (coronary artery disease) Atrial fibrillation Hypertension H/O heart artery stent Surgical History Colostomy in place Heel cord lengthening History of colostomy History of eye surgery History of gastrostomy tube placement History of open reduction and internal fixation (ORIF) procedure History of soft tissue release Status post insertion of intrathecal baclofen pump Social History household members: family housing: house current occupational status: disabled Smoking Status: Never smoker alcohol intake: never substance use type: does not use caffeine: No ROS ROS ED Review of Systems ROS Unobtainable: due to mental condition EXAM Physical Exam Narrative Exam Narrative: Nursing triage notes reviewed, Vital signs reviewed Constitutional: please see mdm HENT: Dry oral mucosa Eyes: Pupils equal round and reactive to light, Extraocular muscles intact Neck: No stridor, no JVD, full neck ROM, trach in place, no redness or bleedingaround trach site. Lungs: Clear to auscultation, No wheezing or rales. No increased work of breathing, no conversational dyspnea, no accessory muscle use, no nasal flaring. No respiratory distress noted Heart: Regular rate and rhythm, No murmurs, No rubs and No gallops, 2+ distal pulses (radial, femoral, posterior tibial) in all extremities Abdomen: Soft, there is no tenderness, colostomy bag in place, prolapsed contents and colostomy appears pink and well vascularized, rigidity, rebound or guarding, no obvious peritoneal signs, no palpable pulsatile abdominal masses, no auscultated abdominal bruit : No CVAT Extremities: No edema, chronic appearing contractures in upper lower extremities Neuro: Alert, rouses to minimal stimuli, appears to move all 4 extremities, appears to have sensation all 4 extremities Skin: No rash or lesions noted, no cyanosis Const Vital Signs: 06/12/22 10:38 06/12/22 10:43 06/12/22 12:17 Temperature 97.5 F L 97.5 F L Temperature Source Temporal Temporal Pulse Rate 79 64 Respiratory Rate 18 18 Respiratory Effort Normal Non-Labored Respiratory Pattern Normal Blood Pressure 109/77 109/73 Blood Pressure Mean 87 85 Pulse Ox 96 96 Oxygen Delivery Method Mechanical Ventilator Mechanical Ventilator Oxygen Flow Rate (L/min) 5 MDM MDM MDM Narrative Medical decision making narrative: Chief Complaint: Transient hypoxia External records reviewed: Admitted in March 2022 for sepsis, aspiration pneumonia MDM: The patient was hemodynamically stable, afebrile, nontoxic appearing. Exam unremarkable. Lungs clear, no murmurs gallops or rubs. No signs of respiratorydistress. I considered the following differential diagnosis: Mucous plugging, pneumonia, COVID, flu, anemia, arrhythmia, myocardial ischemia I obtained a broad lab and imaging work-up to further elucidate etiology patientcomplaints. Labs images remarkable for no signs of significant anemia. No signs of systemic inflammation. No signs of myocardial ischemia. No signs of arrhythmia or new EKG changes suggest myocardial ischemia. Chest x-ray without evidence of pneumonia pulmonary edema. Etiology of trans hypoxia likely secondary to mucous plugging. Encouraged ongoing evaluation and treatment at home. Encourage frequent tracheal suctioning and tracheostomy management. Encourage close follow-up with the patient's primary care physician as well as his vera specialist. Factors affecting care: Cerebral palsy, iron deficiency anemia Social determinants of health: Poor health literacy History obtained from others: The patient's parent Shared decision making: I will have a discussion with the patient and or visitors regarding risk/benefits of further testing or admission. They will be made aware of of the risk/benefits inherent in this decision they will be given the opportunity to voice understanding. Consults: None Lab Data Attestation: I reviewed the patient's lab results. Lab results narrative: EKG shows normal sinus rhythm, left axis deviation, T wave inversions in anterior lateral leads similar to prior EKG on November 2021 CBC without evidence of systemic inflammation, mild anemia (similar to prior), no thrombocytopenia COVID, flu negative Troponin is negative, no evidence of myocardial ischemia BMP without evidence of significant electrolyte abnormalities (noted mild hyponatremia), no anion gap, no acute kidney injury. Labs: Laboratory Results - last 24 hr 06/12/22 06/12/22 11:45 11:45 WBC 6.1 RBC 4.08 L Hgb 11.2 L Hct 34.7 L MCV 85.0 MCH 27.5 MCHC 32.3 RDW Std Deviation 45.3 H RDW Coeff of Emilee 14.5 Plt Count 199 MPV 9.8 Immature Gran % (Auto) 1.300 H Neut % (Auto) 50.9 Lymph % (Auto) 35.9 Rabun % (Auto) 8.1 Eos % (Auto) 3.3 Baso % (Auto) 0.5 Absolute Neuts (auto) 3.1 Absolute Lymphs (auto) 2.18 Nucleated RBC % 0 Sodium 135 L Potassium 3.7 Chloride 103 Carbon Dioxide 28.0 Anion Gap 4 L BUN 11 Creatinine 0.28 L Estim Creat Clear Calc 381.94 Est GFR (MDRD) Af Amer 456 Est GFR (MDRD) Non-Af 377 BUN/Creatinine Ratio 38.9 H Glucose 90 Calcium 8.8 Troponin I High Sens < 3 L Radiography Chest X-Ray - ED: Read by ED Physician Diagnostic Testing: Clinical Impression(s) from Imaging Studies Chest X-Ray 06/12/22 12:00 IMPRESSION: The tracheostomy tube and the right daniela catheter are unchanged. The lungs are clear. Electronically Signed: Matti Greer MD at 12:12 EDT , I have personally reviewed the patient's chest x-ray. Chest x-ray is unremarkable for pulmonary edema, pneumothorax, pneumonia or focal cardiopulmonary abnormality. Discharge Plan Triage Chief Complaint: General Illness ED Provider: Naveen Munoz Dx/Rx/DC Orders Clinical Impression: Mucus plugging of bronchi, Ventilator dependence, History of cerebral palsy, Acute hyponatremia Instructions: ED Mucous Plug, Trach Tube Prescriptions: No Action albuterol sulfate 2.5 mg /3 mL (0.083 %) solution for nebulization 2.5 mg inhalation Q4H PRN (Reason: Sob &/Or Wheezing) esomeprazole magnesium [Nexium Packet] [address] for susp in packet 40 mg G-tube BID famotidine [Pepcid] 20 mg tablet 20 mg feeding tube LUNCH Rx Instructions: per NG simethicone 40 mg/0.6 mL drops,suspension 40 mg G-tube PRN PRN (Reason: GAS) Label Comments: gas metoclopramide HCl 5 mg/5 mL solution 5 mg feeding tube TID Label Comments: stomach phenobarbital 20 MG/5 ML elixir 60 mg G-tube 5X/DAY Label Comments: 20 mg/5 Lactobacillus acidophilus 1 EACH capsule 1 cap G-tube DAILY lorazepam 1 MG tablet 2 mg G-tube Q8 PRN (Reason: Agitation) Label Comments: TAKE ONE TABLET BY MOUTH THREE TIMES DAILY NEEDED ferrous sulfate 15 MG/ML drops 75 mg G-tube DAILY Cough Assist 1 dose .Route .MEDSUPPLY Rx Instructions: Inspiratory and Expiratory times of 20-40 seconds with a 1-2 second pause. oxygen concentrator 1 dose .Route .MEDSUPPLY Rx Instructions: As directed ondansetron HCl 4 MG tablet 5 ml feeding tube DAILY PRN (Reason: Nausea) baclofen 5 mg/5 mL solution 20 mg G-tube Q6H lactose-reduced food with fibr 0.06 gram-1.2 kcal/mL liquid 1,000 ml G-tube DAILY Rx Instructions: 50 ml/hr continuous ascorbic acid (vitamin C) 500 MG/5 ML syrup 500 mg G-tube DAILY Rx Instructions: take this medication with the iron supplement gabapentin 250 MG/5 ML solution 500 mg G-tube 4X/DAY plecanatide 3 mg tablet 3 mg GT DAILY doxazosin 2 mg tablet 2 mg GT DAILY cholecalciferol (vitamin D3) 10 mcg/mL (400 unit/mL) drops 50 mcg feeding tube DAILY Label Comments: GIVE 0.75ML VIA G-TUBEYONCE DAILY guaifenesin 200 mg/5 mL liquid 200 mg feeding tube Q6H PRN (Reason: Cough) Primary Care Provider: Chente Conn Referrals: Chente Conn MD [Primary Care Provider] - Activity Restrictions/Additional Instructions: Please return if you notice any changes to the patient's oxygenation. Please follow with his primary care physicians as well as specialist for outpatient evaluation and further treatment. Disposition Disposition: Home, Self Care What to do if you have Problems For any increased pain, shortness of breath, bleeding, nausea or vomiting, chestpain, or any unexpected problems, contact your Primary Care Provider. Call [facility] ([phone]) or report to the closest Emergency Room. Call 911 if necessary. 06/12/22 1231 <Electronically signed by Naveen Munoz DO> Cosigner Signature (if applicable): CC: Dr. Chente Conn MD ~ Signed [facility] Work Phone: [phone]) 910-958903-15-2023 NoteHNO ID: [id number] Author: Yola Leavitt MD Service: ? Author Type: Physician Type: Progress Notes Filed: 05/18/2022 3:04 PM Note Text: COLORECTAL SURGERY VIRTUAL VISIT FOLLOW UP I had a virtual visit with Mr. Michael today for follow up of prolapsing stoma. UPDATED HISTORY: Emily is a 39 year old male here today for the surgical evaluation of a prolapsing hernia. Mo has a history of cerebral palsy, and underwent a Jamie procedure with Dr Chrissy palma in October of 2014. He has not been seen at [facility] since 2019 when he came for [...] Medical Decision Making: Assessment Assessment AND Diagnosis: Kriss Michael is a 42 year old male with stoma prolapse Data Reviewed: Tests AND Documents Reviewed/ordered: Review of prior operative reports Review of Pathology I have independently interpreted: CT Abdomen I have discussed Kriss Michael's treatment plan and/or results with his mom. Treatment plan: FU with ET ET recommendations for prolapsing stoma I have communicated my name and active licensure. The patient's identity and physical location were verified at the time of this visit. Either the patient or their legal internet sales representative has been informed of the risks and benefits of -- and alternatives to -- treatment through a remote evaluation and consents to proceed with the evaluation remotely. Risk of morbidity, mortality and/or complications of treatment plan: moderate I spent a total of 36 minutes on the date of the service which included preparing to see the patient and [id number] patient care.[facility]03-15-2023 History of Present illness Narrative* I Mauricio Leavitt MD - 05/06/2022 4:45 PM EDT COLORECTAL SURGERY VIRTUAL VISIT FOLLOW UP I had a virtual visit with Mr. Michael today for follow up of prolapsing stoma. UPDATED HISTORY: Emily is a 39 year old male here today for the surgical evaluation of a prolapsing hernia. Mo has a history of cerebral palsy, and underwent a Jamie procedure with Dr Leavitt back in 2014. He has not been seen at [facility] since 2019 when he came for parastomal hernia concerns. He wasseen by Dr Cooley for this, no surgery [...] Medical Decision Making: Assessment Assessment & Diagnosis: Kriss Michael is a 42 year old male with stoma prolapse Data Reviewed: Tests & Documents Reviewed/ordered: Review of prior operative reports Review of Pathology I have independently interpreted: CT Abdomen I have discussed Kriss Michael's treatment plan and/or results with his mom. Treatment plan: FU with ET ET recommendations for prolapsing stoma Risk of morbidity, mortality and/or complications of treatment plan: moderate I spent a total of 36 minutes on the date of the service which included preparing to see the patient and esvf-sw-[id number] patient care. documented in this encounterLake[facility]02-21-2023 Miscellaneous Notes* Telephone Encounter - Geetha Walter RN - 04/14/2022 1:39 PM EST Called and spoke with mother Matteo Scheduled VV for her to further discuss options for Dr Leavitt Advised initially that in person visit mar be best, but patient is on a vent so it is difficult forhim to travel, so we can start with VV in light of this information * Telephone Encounter - Ebony Boateng - 04/14/2022 12:36 PM EST The patient had a Colostomy done by Dr leavitt. The patient 's mother (POA) States he is having issues with prolapse of colon, would like to see what could be done about this,. [phone] Ashly (mom) documented in this encounterLakehealth [facility] Center02-21-2023 Miscellaneous Notes* Telephone Encounter - Ebony Boateng - 04/14/2022 1:19 PM EST The patients mom stated that she can get into mychart. documented in this encounterLakehealth [facility] Center[address] De La Torre [facility] March 24, 2022 8:03pm Note Date/Time March 24, 2022 5 :37pm [facility] Medical Records Department [address] [place] [address] Emergency Department Summary 03/24/22 MR#: [id number] Acct: [id number] Name: KRISS MICHAEL Rep #:[id number] : 1980 42 From: Dario De La Torre MD PCP: Dr. Chente Conn MD Status:RE G ER Location: ED HPI History of Present Illness Chief Complaint: Shortness of Breath Detail of Chief Complaint: Elevated temperature, increased shortness of breath with rapid respiratory Informant: parent Onset/Context/Timing Onset: Today (This morning) Context: Sudden Onset Timing: Continuous Quality: Respiratory rate of 40 and heart rate of 140. Location: Home Current Severity: Mild Maximum Severity: Moderate Worsened by: Unknown Relieved by: Nothing Associated Symptoms Associated Symptoms: Unknown, nonverbal Narrative Narrative: Patient is a 42-year-old vent dependent person cared for by his parents. Motherwas the primary informant. At 1600 mother had a document temperature 100.9 axillary. Respiratory rate has been as high as 40. Heart rate has been as highas 140. He has had increased secretions that are colored noted from his trach. There is been no change in feeding. There is no odor or change in color of his urine. He has had no diarrhea. Prior similar symptoms: Yes Recent Illness/Hospitalization: Yes PFSH [facility] Medical History Acute dyspnea Anemia in chronic illness Cerebral palsy Colostomy prolapse Debility Edema History of seizure disorder Iron deficiency anemia Nonrheumatic mitral valve prolapse Obesity Pseudomonas pneumonia Pulmonary embolism on left (06/14/19) Redundant colon Thrombocytopenia Tracheostomy in place Upper GI bleeding (04/2020) Home Medications phenobarbital 20 mg/5 mL (4 mg/mL) oral elixir 60 mg G-tube BID pain 02/19/17 [History Last Taken 04/24/20 21:00] Lactobacillus acidophilus 1 cap G-tube DAILY gut health 02/04/18 [History Last Taken 04/24/20 09:00] metoclopramide HCl 5 mg/5 mL oral solution 5 mg feeding tube TID thrush 09/16/18[History Last Taken 04/24/20 21:00] lorazepam 1 mg tablet 2 mg G-tube Q8 PRN Agitation 10/08/18 [History Last Taken 04/24/20 22:00] Cough Assist 1 dose .Route .MEDSUPPLY assist in clearing secretions 12/25/18 [History Last Taken Unknown] ferrous sulfate 15 mg iron (75 mg)/mL oral drops 75 mg G-tube DAILY supplement 12/25/18 [History Last Taken 04/24/20 16:00] oxygen concentrator 1 dose .Route .MEDSUPPLY second unit, 4 LPM cont all modalities 12/25/18 [History Last Taken Unknown] ondansetron HCl 4 mg tablet 5 ml feeding tube DAILY PRN Nausea 05/09/19 [History Last Taken Unknown] ascorbic acid (vitamin C) 500 mg/5 mL oral syrup 500 mg G-tube DAILY Check with primary doctor 08/04/19 [History Last Taken Unknown] gabapentin 250 mg/5 mL oral solution 500 mg G-tube 4X/DAY Check with primary doctor 09/26/19 [History Last Taken 04/25/20 06:00] albuterol sulfate 2.5 mg/3 mL (0.083 %) solution for nebulization 2.5 mg inhalation Q4H PRN Sob &/Or Wheezing 11/27/20 [History Last Taken Unknown] baclofen 5 mg/5 mL oral solution 20 mg G-tube Q6H Spasticity 11/27/20 [History Last Taken Unknown] esomeprazole magnesium 40 mg granules delayed release for susp 40 mg G-tube BID Check with primary doctor 11/27/20 [History Last Taken Unknown] famotidine 20 mg tablet (Pepcid) 20 mg feeding tube LUNCH Check with primary doctor 11/27/20 [History Last Taken Unknown] lactose-reduced food with fiber 0.06 gram-1.2 kcal/mL oral liquid 1,000 ml G- tube DAILY Check with primary doctor 11/27/20 [History Last Taken Unknown] plecanatide 3 mg tablet 3 mg G-tube DAILY Check with primary doctor 11/27/20 [History Last Taken Unknown] simethicone 40 mg/0.6 mL oral drops,suspension 40 mg G-tube PRN PRN GAS 11/27/20[History Last Taken Unknown] aluminum-mag hydroxide-simethicone 200 mg-200 mg-20 mg/5 mL oral susp 20 ml feeding tube 4X/DAY Check with primary doctor 01/11/21 [History Last Taken Unknown] doxazosin 2 mg tablet 2 mg PO DAILY Check with primary doctor 11/30/21 [History Last Taken Unknown] guaifenesin 200 mg/5 mL oral liquid 400 mg (10 mL) feeding tube Q6H PRN Cough #473 mL 12/19/21 [Rx Last Taken Unknown] betamethasone dipropionate 0.05 % topical cream 1 applic topical BID PRN Check with primary doctor 01/06/22 [History Last Taken Unknown] ciprofloxacin HCl 0.3 % eye drops 1 drp LEFT EYE Q4H 7 days #5 mL 02/24/22 [Rx Last Taken Unknown] Allergy/AdvReac Type Severity Reaction Status Date / Time cisapride monohydrate Allergy Rash Verified 03/24/22 17:08 [From Propulsid] house dust Allergy NEEDS Verified 03/24/22 17:08 FOLLOW-UP codeine AdvReac hallucinati Verified 03/24/22 17:08 ons metronidazole [From Flagyl] AdvReac Rash Verified 03/24/22 17:08 morphine AdvReac Hallucinati Verified 03/24/22 17:08 ons Family History Mother Hepatitis C Hypertension Father CAD (coronary artery disease) Atrial fibrillation Hypertension H/O heart artery stent Surgical History Colostomy in place Heel cord lengthening History of colostomy History of eye surgery History of gastrostomy tube placement History of open reduction and internal fixation (ORIF) procedure History of soft tissue release Status post insertion of intrathecal baclofen pump Social History household members: family housing: house current occupational status: disabled Smoking Status: Never smoker alcohol intake: never substance use type: does not use caffeine: No ROS ROS ED Review of Systems ROS Unobtainable: due to mental status Constitutional Constitutional ED: Reports fever(s) Cardiovascular Cardiovascular: Reports racing heartbeat Respiratory/Chest Respiratory/Chest: Reports cough and dyspnea EXAM Physical Exam Const Vital Signs: 03/24/22 17:08 03/24/22 17:12 03/24/22 17:16 Temperature 98.1 F Temperature Source Temporal Pulse Rate 134 H 129 H Respiratory Rate 36 H 24 H Respiratory Effort Short of Breath Labored Respiratory Pattern Tachypnea Blood Pressure 132/83 H 143/93 H Blood Pressure Mean 99 109 Pulse Ox 95 95 Oxygen Delivery Method Ambu-Bag Mechanical Ventilator 03/24/22 17:47 03/24/22 19:02 Temperature 102.1 F H Temperature Source Axillary Pulse Rate 128 H Respiratory Rate Respiratory Effort Respiratory Pattern Blood Pressure 112/77 140/96 H Blood Pressure Mean 88 110 Pulse Ox 94 Oxygen Delivery Method Mechanical Ventilator Positive well nourished and well developed Constitutional Narrative: He appears agitated. Question of slight mottling of his extremities. He postures when the blood pressure cuff inflates. General Appearance ED: well developed and pallor; Negative for cyanotic or diaphoretic HEENT Reports dry mucous membranes HEENT Narrative: Head is atraumatic normocephalic. Ears normal. Nares patent. Mucosa is dry. Mouth ED: Yes dry mucous membranes Mouth: dry mucous membranes Eyes PERRL and EOMs intact bilaterally General Eye ED: Yes pale conjunctiva; Negative for scleral icterus Neck no lymphadenopathy, supple and no JVD Neck Narrative: Trach noted. Chest Wall inspection of chest normal and palpation of chest normal Resp No normal respiratory effort and No clear to auscultation bilaterally Auscultation: rales right base and wheezes expiratory wheezes (Right greater than left.) Cardio regular rhythm, S1 normal heart sound, S2 normal heart sound and no murmurs Rate: tachycardic GI GI Narrative: Gastrostomy port noted. Patient is status post colectomy with herniation noted. This is chronic. Tissue appears viable. Inspection: abdominal distention Auscultation: hypoactive bowel sounds Extremity Extremity Narrative: Patient has contractures. There is mottling of the extremities. Capillary refill is 2 seconds. Neuro Neuro Narrative: Altered mental status due to cerebral palsy and cognitive impairment. Skin no wounds General Skin Exam: pallor; Negative for jaundice MDM MDM MDM Narrative Medical decision making narrative: With temperature 102.1 tachycardia tachypnea and colored sputum from trach site concern patient has respiratory infection. Sepsis work-up was undertaken. We will compare lab results to prior. Patient's oxygenation is appropriate on mechanical ventilation. Parents brought his ventilator to the hospital. November 2020 patient was admitted for ventilator associated pneumonia due to Pseudomonas. Patient's axillary temperature was 104.5. His heart rate is 150. Concerned that patient may have aspirated since he is vomited twice and did have gastric contents noted from trach. Since patient has history of Pseudomonas infection with last admission we will treat for Zosyn which would cover nosocomial aspiration as well as Pseudomonas. Patient did receive a fluid bolus. He did receive Tylenol for his elevated temperature. Lab Data Attestation: I reviewed the patient's lab results. Lab results narrative: White count is normal. Patient has anemia, which is chronic. Basic metabolic panel does not elevated glucose 145. Lactate 2.7. Labs: Laboratory Results - last 24 hr 03/24/22 03/24/22 03/24/22 17:40 17:40 17:40 WBC 7.5 RBC 4.25 L Hgb 11.5 L Hct 36.3 L MCV 85.4 MCH 27.1 MCHC 31.7 L RDW Std Deviation 43.3 RDW Coeff of Emilee 14.0 Plt Count 141 L MPV 10.4 Immature Gran % (Auto) 0.100 Neut % (Auto) 79.9 H Lymph % (Auto) 13.1 L Rabun % (Auto) 5.3 Eos % (Auto) 1.3 Baso % (Auto) 0.3 Absolute Neuts (auto) 6.0 Absolute Lymphs (auto) 0.99 Nucleated RBC % 0 Sodium 133 L Potassium 3.8 Chloride 99 Carbon Dioxide 23.0 Anion Gap 11 BUN 10 Creatinine 0.45 L Estim Creat Clear Calc 154.32 Est GFR (MDRD) Af Amer 267 Est GFR (MDRD) Non-Af 220 BUN/Creatinine Ratio 22.2 H Glucose 145 H Lactic Acid 2.7 H* Calcium 8.6 Radiography Chest X-Ray - ED: 1 View and Read by ED Physician (Reviewed portable chest x- rayand apparently reviewed by me. Patient has a chronically elevated right hemidiaphragm. There is evidence of atelectasis. Is no obvious infiltrate. There is no effusion. Cardiac silhouette is unremarkable. There is no acute findings.) Diagnostic Testing: Clinical Impression(s) from Imaging Studies Chest X-Ray 03/24/22 17:42 IMPRESSION: Elevated right hemidiaphragm and mild basilar atelectasis Electronically Signed: Gerald Anne MD at 18:09 EST , Rhythm Strip Rhythm Strip: Sinus Tach Rate: 140 Ectopy: None Critical Care Time Critical Care Time: Yes Critical care time (excluding procedures): 30-74 minutes (32), Including time spent: (History, physical, documentation, interpretation laboratory results, treatment for sepsis), Discussing w/Patient &/or Family/Group Art Supervisor, Discussing w/Consultants, Arranging Admission or Transfer and Performing Direct Patient Care at Bedside Discharge Plan Triage Chief Complaint: Shortness of Breath ED Provider: Dario De La Torre Dx/Rx/DC Orders Clinical Impression: Sepsis, Cerebral palsy, Aspiration into airway, Hyperpyrexia, Chronic respiratory failure with hypoxia, Sinus tachycardia, Acidosis, lactic Prescriptions: No Action albuterol sulfate 2.5 mg /3 mL (0.083 %) solution for nebulization 2.5 mg inhalation Q4H PRN (Reason: Sob &/Or Wheezing) esomeprazole magnesium [address] for susp in packet 40 mg G-tube BID famotidine [Pepcid] 20 mg tablet 20 mg feeding tube LUNCH Rx Instructions: per NG guaifenesin 200 mg/5 mL liquid 400 mg feeding tube Q6H PRN (Reason: Cough) Qty: 473 11RF simethicone 40 mg/0.6 mL drops,suspension 40 mg G-tube PRN PRN (Reason: GAS) Label Comments: gas metoclopramide HCl 5 mg/5 mL solution 5 mg feeding tube TID Label Comments: stomach phenobarbital 20 MG/5 ML elixir 60 mg G-tube BID Label Comments: 20 mg/5 Lactobacillus acidophilus 1 EACH capsule 1 cap G-tube DAILY lorazepam 1 MG tablet 2 mg G-tube Q8 PRN (Reason: Agitation) Label Comments: TAKE ONE TABLET BY MOUTH THREE TIMES DAILY NEEDED ferrous sulfate 15 MG/ML drops 75 mg G-tube DAILY Cough Assist 1 dose .Route .MEDSUPPLY Rx Instructions: Inspiratory and Expiratory times of 20-40 seconds with a 1-2 second pause. oxygen concentrator 1 dose .Route .MEDSUPPLY Rx Instructions: As directed ondansetron HCl 4 MG tablet 5 ml feeding tube DAILY PRN (Reason: Nausea) baclofen 5 mg/5 mL solution 20 mg G-tube Q6H lactose-reduced food with fibr 0.06 gram-1.2 kcal/mL liquid 1,000 ml G-tube DAILY Rx Instructions: 50 ml/hr continuous ascorbic acid (vitamin C) 500 MG/5 ML syrup 500 mg G-tube DAILY Rx Instructions: take this medication with the iron supplement gabapentin 250 MG/5 ML solution 500 mg G-tube 4X/DAY plecanatide 3 mg tablet 3 mg GT DAILY alum-mag hydroxide-simeth 200-200-20 mg/5 mL Suspension 20 ml feeding tube 4X/DAY doxazosin 2 mg tablet 2 mg GT DAILY betamethasone dipropionate 0.05 % cream 1 applic topical BID PRN (Reason: Check with primary doctor) Rx Instructions: Apply sparingly to affected area ciprofloxacin HCl 0.3 % drops 1 drp LEFT EYE Q4H 7 Days Qty: 5 0RF Rx Instructions: administer while awake Primary Care Provider: Chente Conn Referrals: Chente Conn MD [Primary Care Provider] - Disposition Disposition: [facility] What to do if you have Problems For any increased pain, shortness of breath, bleeding, nausea or vomiting, chestpain, or any unexpected problems, contact your Primary Care Provider. Call [facility] ([phone]) or report to the closest Emergency Room. Call 911 if necessary. 03/24/222002 <Electronically signed by Dario De La Torre MD> Cosigner Signature (if applicable): CC: Dr. Chente Conn MD ~ Signed [facility] Work Phone: [phone] 587-214705-24-2019 History of Past illness Narrative* Problem Noted [...] latter does not explain HGB drop. - [place] removed - BP stable - MAP goal [...] to goal rate - finishing reglan 10mg [id number] for 24 hours today - monitor ostomy [...] -monitor BP Acute respiratory failure with hypoxia 201 3 12/17/2012 Overview: - due to aspiration [...] 04/13, vanc stopped, pharmacy consulted for dosing -Wes placed - CVVHD for around 2 days with vanc level dropping to 30s, transitioned to IHD -last IHD was on 04/17. UOP improving. Vanco restarted. Pulled Wes 04/21. -clearing good solutes, Cr improving, and [...] work up, CXR, echo, cultures negative. Rt wes removed and left IJ placed 04/19 for [...] of this encounter (statuses as of 04/14/2022) [facility]05-24-2019 History of Past illness Narrative* Problem Noted [...] to goal rate - finishing reglan 10mg [id number] for 24 hours today - monitor ostomy [...] 04/13, vanc stopped, pharmacy consulted for dosing -Wes placed - CVVHD for around 2 days with vanc level dropping to 30s, transitioned to IHD -last IHD was on 04/17. UOP improving. Vanco restarted. Pulled Wes 04/21. -clearing good solutes, Cr improving, and [...] work up, CXR, echo, cultures negative. Rt wes removed and left IJ placed 04/19 for [...] of this encounter (statuses as of 04/14/2022) [facility]05-24-2019 History of Past illness Narrative* Problem Noted [...] latter does not explain HGB drop. - [place] removed - BP stable - MAP goal [...] to goal rate - finishing reglan 10mg [id number] for 24 hours today - monitor ostomy [...] 04/13, vanc stopped, pharmacy consulted for dosing -Wes placed - CVVHD for around 2 days with vanc level dropping to 30s, transitioned to IHD -last IHD was on 04/17. UOP improving. Vanco restarted. Pulled Wes 04/21. -clearing good solutes, Cr improving, and [...] work up, CXR, echo, cultures negative. Rt wes removed and left IJ placed 04/19 for [...] of this encounter (statuses as of 05/08/2022) [facility]05-24-2019 History of Past illness Narrative* Problem Noted [...] to goal rate - finishing reglan 10mg [id number] for 24 hours today - monitor ostomy [...] 04/13, vanc stopped, pharmacy consulted for dosing -Wes placed - CVVHD for around 2 days with vanc level dropping to 30s, transitioned to IHD -last IHD was on 04/17. UOP improving. Vanco restarted. Pulled Wes 04/21. -clearing good solutes, Cr improving, and [...] work up, CXR, echo, cultures negative. Rt wes removed and left IJ placed 04/19 for [...] of this encounter (statuses as of 06/16/2022) [facility]05-24-2019 History of Past illness Narrative* Problem Noted [...] to goal rate - finishing reglan 10mg [id number] for 24 hours today - monitor ostomy [...] 04/13, vanc stopped, pharmacy consulted for dosing -Wes placed - CVVHD for around 2 days with vanc level dropping to 30s, transitioned to IHD -last IHD was on 04/17. UOP improving. Vanco restarted. Pulled Wes 04/21. -clearing good solutes, Cr improving, and [...] work up, CXR, echo, cultures negative. Rt wes removed and left IJ placed 04/19 for [...] of this encounter (statuses as of 07/01/2022) [facility] Diagnosis Onset Date Resolution Status Chronic respiratory failure chronic [facility] Work Phone: evaluation note* Diagnosis Onset Date Resolution Status Chronic respiratory failure chronic Nonrheumatic mitral valve prolapse [facility] Work Phone: Evaluation note* Diagnosis Onset Date Resolution Status Nonrheumatic mitral valve prolapse [facility] Work Phone: Evaluation note* Diagnosis Onset Date Resolution Status Nonrheumatic mitral valve prolapse chronic Chronic respiratory failure [facility] Work Phone: Evaluation note* Diagnosis Onset Date Resolution Status Chronic respiratory failure chronic Acute dyspnea acute Cyanosis acute Hypoxia acute Cerebral palsy [facility] Work Phone: Evaluation note* Diagnosis Onset Date Resolution Status Chronic respiratory failure chronic Acute dyspnea acute Colostomy prolapse acute Cyanosis acute Hypoxia acute Pseudomonas pneumonia acute Cerebral palsy chronic Chronic respiratory failure [facility] Work Phone: Evaluation note* Diagnosis Onset Date Resolution Status Acute dyspnea acute Colostomy prolapse acute Cyanosis acute Hypoxia acute Pseudomonas pneumonia acute Cerebral palsy chronic Chronic respiratory failure chronic Pseudomonas pneumonia acute Chronic respiratory failure [facility] Work Phone: Evaluation note* Diagnosis Onset Date Resolution Status Cerebral palsy chronic Chronic respiratory failure chronic Acute dyspnea resolved Cyanosis resolved Hypoxia resolved Chronic respiratory failure chronic Chronic respiratory failure [facility] Work Phone: Evaluation note* Diagnosis Onset Date Resolution Status Cerebral palsy chronic Chronic respiratory failure chronic Acute dyspnea resolved Cyanosis resolved Hypoxia resolved Chronic respiratory failure chronic Chronic respiratory failure chronic Acidosis, lactic acute Aspiration into airway acute Hyperpyrexia acute Sepsis acute Sinus tachycardia acute Cerebral palsy chronic Chronic respiratory failure with hypoxia chronic [facility] Work Phone: Evaluation note* Diagnosis Functional disorder of stomach- Primary Unspecified functional disorder of stomach [facility] this encounter [facility] Diagnosis Onset Date Resolution Status Acidosis, lactic resolved Aspiration into airway resol alan Hyperpyrexia resolved Sepsis resolved Sinus tachycardia resolved [facility] Work Phone: Evaluation note* Diagnosis 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 Attention to colostomy documented [facility] this [facility] noteNo assessment information availableWPaul[facility] Work Phone: Evaluation note* Diagnosis Onset Date Resolution Status Chronic respiratory failure with hypoxia chronic [facility] Work Phone: Evaluation note* Diagnosis Onset Date Resolution Status Cerebral palsy acute GI bleed resolved Hematemesis acute [facility] Work Phone: Evaluation note* Diagnosis Onset Date Resolution Status GI bleed resolved Hematemesis resolved [facility] Work Phone: Evaluation note* Diagnosis Onset Date Resolution Status Cerebral palsy chronic GI bleed resolved Hematemesis resolved Cerebral palsy chronic Chronic respiratory failure chronic [facility] Work Phone: Evaluation note* Diagnosis Onset Date Resolution Status Cerebral palsy chronic GI bleed resolved Hematemesis resolved Cerebral palsy chronic Chronic respiratory failure chronic Acidosis, lactic acute Acute hypoxemic respiratory failure acute Aspiration pneumonia acute Cerebral palsy chronic [facility] Work Phone: Evaluation note* Diagnosis Onset Date Resolution Status Cerebral palsy chronic GI bleed resolved Hematemesis resolved Cerebral palsy chronic Chronic respiratory failure chronic Acidosis, lactic acute Acute hypoxemic respiratory failure acute Aspiration pneumonia acute Emesis, persistent acute Cerebral palsy chronic Chronic respiratory failure chronic [facility] Work Phone: Evaluation note* Diagnosis Onset Date Resolution Status Cerebral palsy chronic Chronic respiratory failure chronic Cerebral palsy chronic Chronic respiratory failure chronic Acidosis, lactic resolved Acute hypoxemic respiratory failure resolved Emesis, persistent resolved [facility] Work Phone: History and physical note Author Lucia Dillard [facility] March 23, 2023 4:44pm Note Date/Time March 23, 2023 4 :37pm [facility] Medical Records Department [address] [place] [id number] H&P Exam - Hospitalist 03/23/23 1633 MR#: [id number] Acct: [id number] Name: KRISS MICHAEL Rep #:[id number] : 1980 43 From: Lucia Dillard MD PCP: Dr. Chente Conn MD Status:AD M IN Location: ICU ICU09-1 HPI - General General Date of Admission: 03/23/23 Date of Service: 03/23/23 Chief Complaint: Respiratory distress HPI Narrative KRISS MICHAEL, is a 43-year-old male with a history of cerebral palsy withspastic quadriplegia, chronic dysphagia with a PEG tube, chronic respiratory failure with 4 L O2 during the day and trach with home vent nightly, seizure disorder, and GERD who presented to [facility] 03/23/2023 due to concern for aspiration and respiratory distress. He had been in his usual health but his trach cuff was down for care purposes and before it was reinflated patient had episode of emesis and then had shortness of breath and respiratory distress prompting patient to come to ED. In ED he was 88% on his 4L and required patient to be placed on home vent which he only uses usually at bedtime. He additionally was noted to be in respiratory distress, chest x-ray not yet reflective of an aspiration event, patient was given nebs and antibiotics and begin to improve. Hospitalist contacted for admission. Patientevaluated at bedside with mother present. Pt unable to contribute to hx so hx obtained from mother. Patient was in his usual health until earlier today when he had 6-7 episodes of vomiting then went to respiratory distress and reportedlyvomited 1-2 times here and he was given Zofran and she also vented air from his stomach and has had no further vomiting. She reports he is doing much better and patient is presently not in any acute distress. [facility] Medical History Acute dyspnea Anemia in chronic illness Anxiety Cerebral palsy Cerebral palsy Chronic respiratory failure Chronic respiratory failure with hypoxia Colostomy prolapse Debility Edema GERD (gastroesophageal reflux disease) History of seizure disorder Iron deficiency anemia Non-smoker Nonrheumatic mitral valve prolapse Obesity On home oxygen therapy Pseudomonas pneumonia Pulmonary embolism Pulmonary embolism on left (06/14/19) Redundant colon Seizures Thrombocytopenia Tracheostomy in place Upper GI bleeding (04/2020) Home Medications phenobarbital 20 mg/5 mL (4 mg/mL) oral elixir 60 mg G-tube 0830,2100 SEIZURES 02/19/17 [History Last Taken 03/23/23] metoclopramide HCl 5 mg/5 mL oral solution 10 mg feeding tube 0830,1600,2100 STOMACH 09/16/18 [History Last Taken 03/23/23] Cough Assist 1 dose .Route .MEDSUPPLY assist in clearing secretions 12/25/18 [History Last Taken 03/23/23] oxygen concentrator 1 dose .Route .MEDSUPPLY second unit, 4 LPM cont all modalities 12/25/18 [History Last Taken Unknown] gabapentin 250 mg/5 mL oral solution 500 mg G-tube 0000,0600,1200,1800 SEIZURES 09/26/19 [History Last Taken 03/23/23] albuterol sulfate 2.5 mg/3 mL (0.083 %) solution for nebulization 2.5 mg inhalation Q4H PRN Sob &/Or Wheezing 11/27/20 [History Last Taken Unknown] lactose-reduced food with fiber 0.06 gram-1.2 kcal/mL oral liquid 1,000 ml G- tube DAILY NUTRITION 11/27/20 [History Last Taken 03/23/23] plecanatide 3 mg tablet 3 mg G-tube 0830 BOWELS 11/27/20 [History Last Taken 03/23/23] doxazosin 2 mg tablet 2 mg PO 0830 BLOOD PRESSURE 11/30/21 [History Last Taken 03/23/23] cholecalciferol (vitamin D3) 10 mcg/mL (400 unit/mL) oral drops 15 mcg feeding tube 0830 SUPPLEMENT 03/24/22 [History Last Taken 03/23/23] guaifenesin 200 mg/5 mL oral liquid 200 mg feeding tube 0830 PRN COUGH/CONGESTION 03/24/22 [History Last Taken Unknown] acetaminophen 650 mg/20.3 mL oral suspension 650 mg feeding tube 0000,0600,1200,1800 PRN PAIN 10/24/22 [History Last Taken Unknown] aluminum-mag hydroxide-simethicone 200 mg-200 mg-20 mg/5 mL oral susp 5 ml PO 0000,0600,1200,1800 PRN ANTACID 10/24/22 [History Last Taken Unknown] cetirizine 1 mg/mL oral solution 10 mg feeding tube 1600 ALLERGIES 10/24/22 [History Last Taken 03/22/23] baclofen 20 mg tablet 20 mg feeding tube Q6H MUSCLE SPASMS 12/10/22 [History Last Taken 03/23/23] ondansetron 4 mg disintegrating tablet 4 mg PO Q8H PRN NAUSEA/VOMITING #30 tabs 12/13/22 [Rx Last Taken Unknown] lorazepam 2 mg/mL injection solution (Ativan) 1 mg IM DAILY PRN AGITATION 03/02/23 [History Last Taken Unknown] montelukast 4 mg oral granules in packet (Singulair) 4 mg PO DAILY ASTHMA #30 ea 03/02/23 [Rx Last Taken Unknown] esomeprazole magnesium 40 mg granules delayed release for susp (Nexium Packet) 40 mg G-tube BID ACID REFLUX 03/23/23 [History Last Taken 03/23/23] ipratropium 0.5 mg-albuterol 3 mg (2.5 mg base)/3 mL nebulization soln 3 ml inhalation Q4H PRN SOB &/OR WHEEZING 03/23/23 [History Last Taken Unknown] Allergy/AdvReac Type Severity Reaction Status Date / Time chlorhexidine Allergy Rash Verified 03/02/23 13:16 cisapride monohydrate Allergy Rash Verified 03/02/23 13:16 [From Propulsid] house dust Allergy NEEDS Verified 03/02/23 13:16 FOLLOW-UP codeine AdvReac hallucinati Verified 03/02/23 13:16 ons metronidazole [From Flagyl] AdvReac Rash Verified 03/02/23 13:16 morphine AdvReac Hallucinati Verified 03/02/23 13:16 ons Family History Mother Hepatitis C Hypertension HIV disease Father H/O heart artery stent CAD (coronary artery disease) Atrial fibrillation Hypertension Esophageal cancer Surgical History Colostomy in place Heel cord lengthening History of colostomy History of eye surgery History of gastrostomy tube placement History of open reduction and internal fixation (ORIF) procedure History of soft tissue release Status post insertion of intrathecal baclofen pump Social History household members: family housing: house current occupational status: disabled Smoking Status: Never smoker alcohol intake: never substance use type: does not use caffeine: No ROS ROS Narrative Unable to obtain from patient due to mental status, pertinent positives are respiratory distress and vomiting Vital Signs Vital Signs Vital Signs: 03/23/23 12:12 03/23/23 12:19 03/23/23 12:57 Temperature 97.7 F L Temperature Source Temporal Pulse Rate 149 H 145 H Respiratory Rate 20 H 20 H Respiratory Pattern Normal Blood Pressure Blood Pressure Mean Pulse Ox 92 94 Oxygen Delivery Method Mechanical Ventilator 03/23/23 14:00 03/23/23 15:25 Temperature 97.1 F L Temperature Source Temporal Pulse Rate 137 H 115 H Respiratory Rate 21 H 16 Respiratory Pattern Blood Pressure 139/93 H 124/81 H Blood Pressure Mean 108 95 Pulse Ox 95 95 Oxygen Delivery Method Mechanical Ventilator Mechanical Ventilator Weight Weight: 80.9 kg Body Mass Index (BMI) 34.8 Physical Exam Narrative General: Alert, no apparent distress HEENT: Atraumatic, normocephalic Eyes: Anicteric, normal conjunctiva, extraocular movements grossly intact Neck: Supple Respiratory: Slightly coarse with normal respiratory effort Cardiovascular: Regular rate and rhythm GI: Soft, nondistended Extremities: No significant pitting edema Musculoskeletal: Moving all extremities Neuro: No overt focal neurological deficits Skin: No rashes appreciated Psych: Unable to cooperate secondary to mental status Results Lab / Micro Data 03/23/23 12:35 03/23/23 13:23 Labs: Laboratory Results - last 24 hr 03/23/23 12:35: WBC 13.0 H, RBC 5.07, Hgb 13.1, Hct 42.2, MCV 83.2, MCH 25.8 L, MCHC 31.0 L, RDW Std Deviation 45.1 H, RDW Coeff of Emilee 14.8 H, Plt Count 229, MPV 10.1, Immature Gran % (Auto) 0.400, Neut % (Auto) 70.6 H, Lymph % (Auto) 21.7, Rabun % (Auto) 5.1, Eos % (Auto) 2.0, Baso % (Auto) 0.2, Absolute Neuts (auto) 9.1 H, Absolute Lymphs (auto) 2.81, Nucleated RBC % 0, PT 12.9, INR 1.0, APTT 31.1, Lactic Acid 5.3 H* 03/23/23 13:23: Sodium 135 L, Potassium 3.7, Chloride 104, Carbon Dioxide 26.0, Anion Gap 5, BUN 21 H, Creatinine 0.46 L, Estim Creat Clear Calc 186.40, Est GFR(MDRD) Af Amer 262, Est GFR (MDRD) Non-Af 217, BUN/Creatinine Ratio 46.1 H, Glucose 123 H, Calcium 8.8, Total Bilirubin 0.20, AST 16, ALT 29, Alkaline Phosphatase 169 H, Total Protein 8.8 H, Albumin 3.6, Globulin 5.2 H, Albumin/Globulin Ratio 0.7 L Micro: Microbiology 03/23/23 12:55 Mucosa - Nose Respiratory Panel (PCR) - Final Imaging Radiology Impression Chest X-Ray 03/23/23 13:22 IMPRESSION: Limited inspiratory effort due to patient''s condition. There has been essentially no change prior study. Electronically Signed: Matti Greer MD at 13:40 EST , Assessment & Plan Assessment/Plan (1) Acute hypoxemic respiratory failure: (2) Acidosis, lactic: PLAN: Plan # Acute on chronic respiratory failure on chronic 4 L O2 during daytime and ventvia tracheostomy nightly -88% and in acute respiratory distress on arrival on his 4 L of O2 through trachand had to be placed on his home vent that he usually only uses at bedtime -Went into respiratory distress after episode of vomiting, suspect aspiration, chest x-ray not yet reflective of this episode however given history, symptoms, presentation will be treated as such -Continue nebs, antibiotics -Consult pulm -Continue supportive care # Elevated lactic acid -Of 5.3, will repeat/trend -Suspect this was due to respiratory distress and hypoxia #Cerebral palsy with spastic quadriplegia -Baclofen, gabapentin, Ativan #Seizure disorder -Gabapentin, Ativan, phenobarb #Chronic dysphagia -Status post PEG tube -Tube feeds #GERD -Continue PPI #DVT ppx: SCDs Lucia Dillard MD Time spent in the patient's overall evaluation,decision-making process, review of diagnostic data, adjustment of management, discussion with other providers, nursing nursing and ancillary staff involved in patient's care documentation, 56Minutes Charges/Coding Visit Charges Inpatient E&M: 16764 Init Hosp L2 03/23/23 1644 <Electronically signed by Lucia Dillard MD> Cosigner Signature (if applicable): CC: Dr. Chente Conn MD; Dr. Lucia Dillard MD~ Signed [facility] Work Phone: Hospital Discharge instructions Additional Instructions Please return if you notice any changes to the patient's oxygenation. Please follow with his primary care physicians as well as specialist for outpatient evaluation and further treatment.[facility] Work Phone: Hospital Discharge instructions Additional Instructions Continue your current medications as prescribed. Ativan as needed for anxiety. Follow-up with your doctor as needed or return if worse. His labs today and CAT scan were unremarkable. There is no signs of any blood clots. No signs of any pneumonia. [facility] Work Phone: Reason for referral (narrative)No reason for referral [facility]: Chief Complaint and Reason for Visit Chief Complaint 3 M FU E ORDER cellulitis ABDOMINAL PAIN Reason for Visit Chronic respiratory failure Chief Complaint 3 M FU E ORDER cellulitis ABDOMINAL PAIN NECK MASS Reason for Visit Chronic respiratory failure Chief Complaint 3 M FU E ORDER cellulitis ABDOMINAL PAIN NECK MASS 6 M FU Reason for Visit Chronic respiratory failure Nonrheumatic mitral valve prolapse Chief Complaint E ORDER cellulitis ABDOMINAL PAIN NECK MASS 6 M FU Reason for Visit Nonrheumatic mitral valve prolapse Chief Complaint cellulitis ABDOMINAL PAIN NECK MASS 6 M FU 4 M FU ARRYHTHMIA Reason for Visit Nonrheumatic mitral valve prolapse Chronic respiratory failure Chief Complaint NECK MASS 6 M FU 4 M FU ARRYHTHMIA Reason for Visit Nonrheumatic mitral valve prolapse Chronic respiratory failure Chief Complaint 4 M FU ARRYHTHMIA VENTILATOR ASSOCIATED PNEUMONIA Reason for Visit Chronic respiratory failure Acute dyspnea Cyanosis Hypoxia Cerebral palsy Chief Complaint 4 M FU ARRYHTHMIA VENTILATOR ASSOCIATED PNEUMONIA VENTILATOR ASSOCIATED PNEUMONIA VENTILATOR ASSOCIATED PNEUMONIA VENTILATOR ASSOCIATED PNEUMONIA VENTILATOR ASSOCIATED PNEUMONIA VENTILATOR ASSOCIATED PNEUMONIA VENTILATOR ASSOCIATED PNEUMONIA VENTILATOR ASSOCIATED PNEUMONIA VENTILATOR ASSOCIATED PNEUMONIA VENTILATOR ASSOCIATED PNEUMONIA VENTILATOR ASSOCIATED PNEUMONIA Reason for Visit Chronic respiratory failure Acute dyspnea Colostomy prolapse Cyanosis Hypoxia Pseudomonas pneumonia Cerebral palsy Chronic respiratory failure Chief Complaint ARRYHTHMIA VENTILATOR ASSOCIATED PNEUMONIA VENTILATOR ASSOCIATED PNEUMONIA VENTILATOR ASSOCIATED PNEUMONIA VENTILATOR ASSOCIATED PNEUMONIA VENTILATOR ASSOCIATED PNEUMONIA VENTILATOR ASSOCIATED PNEUMONIA VENTILATOR ASSOCIATED PNEUMONIA VENTILATOR ASSOCIATED PNEUMONIA VENTILATOR ASSOCIATED PNEUMONIA VENTILATOR ASSOCIATED PNEUMONIA VENTILATOR ASSOCIATED PNEUMONIA VENTILATOR ASSOCIATED PNEUMONIA 4 M FU Reason for Visit Acute dyspnea Colostomy prolapse Cyanosis Hypoxia Pseudomonas pneumonia Cerebral palsy Chronic respiratory failure Pseudomonas pneumonia Chronic respiratory failure Chief Complaint VENTILATOR ASSOCIATE D PNEUMONIA VENTILATOR ASSOCIATED PNEUMONIA VENTILATOR ASSOCIATED PNEUMONIA VENTILATOR ASSOCIATED PNEUMONIA VENTILATOR ASSOCIATED PNEUMONIA VENTILATOR ASSOCIATED PNEUMONIA VENTILATOR ASSOCIATED PNEUMONIA VENTILATOR ASSOCIATED PNEUMONIA VENTILATOR ASSOCIATED PNEUMONIA VENTILATOR ASSOCIATED PNEUMONIA VENTILATOR ASSOCIATED PNEUMONIA VENTILATOR ASSOCIATED PNEUMONIA 4 M FU 6 M FU Reason for Visit Cerebral palsy Chronic respiratory failure Acute dyspnea Cyanosis Hypoxia Chronic respiratory failure Chronic respiratory failure Chief Complaint VENTILATOR ASSOCIATE D PNEUMONIA VENTILATOR ASSOCIATED PNEUMONIA VENTILATOR ASSOCIATED PNEUMONIA VENTILATOR ASSOCIATED PNEUMONIA VENTILATOR ASSOCIATED PNEUMONIA VENTILATOR ASSOCIATED PNEUMONIA VENTILATOR ASSOCIATED PNEUMONIA VENTILATOR ASSOCIATED PNEUMONIA VENTILATOR ASSOCIATED PNEUMONIA VENTILATOR ASSOCIATED PNEUMONIA VENTILATOR ASSOCIATED PNEUMONIA VENTILATOR ASSOCIATED PNEUMONIA 4 M FU 6 M FU SOB Reason for Visit Cerebral palsy Chronic respiratory failure Acute dyspnea Cyanosis Hypoxia Chronic respiratory failure Chronic respiratory failure Chief Complaint VENTILATOR ASSOCIATE D PNEUMONIA VENTILATOR ASSOCIATED PNEUMONIA VENTILATOR ASSOCIATED PNEUMONIA VENTILATOR ASSOCIATED PNEUMONIA VENTILATOR ASSOCIATED PNEUMONIA VENTILATOR ASSOCIATED PNEUMONIA VENTILATOR ASSOCIATED PNEUMONIA VENTILATOR ASSOCIATED PNEUMONIA VENTILATOR ASSOCIATED PNEUMONIA VENTILATOR ASSOCIATED PNEUMONIA VENTILATOR ASSOCIATED PNEUMONIA VENTILATOR ASSOCIATED PNEUMONIA 4 M FU 6 M FU SOB SEPSIS Reason for Visit Cerebral palsy Chronic respiratory failure Acute dyspnea Cyanosis Hypoxia Chronic respiratory failure Chronic respiratory failure Acidosis, lactic Aspiration into airway Hyperpyrexia Sepsis Sinus tachycardia Cerebral palsy Chronic respiratory failure with hypoxia Chief Complaint VENTILATOR ASSOCIATE D PNEUMONIA VENTILATOR ASSOCIATED PNEUMONIA VENTILATOR ASSOCIATED PNEUMONIA VENTILATOR ASSOCIATED PNEUMONIA VENTILATOR ASSOCIATED PNEUMONIA VENTILATOR ASSOCIATED PNEUMONIA VENTILATOR ASSOCIATED PNEUMONIA VENTILATOR ASSOCIATED PNEUMONIA VENTILATOR ASSOCIATED PNEUMONIA VENTILATOR ASSOCIATED PNEUMONIA VENTILATOR ASSOCIATED PNEUMONIA VENTILATOR ASSOCIATED PNEUMONIA 4 M FU 6 M FU SOB SEPSIS SEPSIS Reason for Visit Cerebral palsy Chronic respiratory failure Acute dyspnea Cyanosis Hypoxia Chronic respiratory failure Chronic respiratory failure Acidosis, lactic Aspiration into airway Hyperpyrexia Sepsis Sinus tachycardia Cerebral palsy Chronic respiratory failure with hypoxia Chief Complaint SOB SEPSIS SEPSIS SEPSIS SEPSIS SEPSIS SEPSIS SEPSIS SEPSIS SEPSIS SEPSIS SEPSIS SEPSIS SEPSIS SEPSIS SEPSIS SEPSIS SEPSIS SEPSIS Reason for Visit Acidosis, lactic Aspiration into airway Hyperpyrexia Sepsis Sinus tachycardia Chief Complaint SOB SEPSIS SEPSIS SEPSIS SEPSIS SEPSIS SEPSIS SEPSIS SEPSIS SEPSIS SEPSIS SEPSIS SEPSIS SEPSIS SEPSIS SEPSIS SEPSIS SEPSIS SEPSIS STANDING ORDER- MONTHLY general illness Reason for Visit Acidosis, lactic Aspiration into airway Hyperpyrexia Sepsis Sinus tachycardia Chief Complaint SOB SEPSIS SEPSIS SEPSIS SEPSIS SEPSIS SEPSIS SEPSIS SEPSIS SEPSIS SEPSIS SEPSIS SEPSIS SEPSIS SEPSIS SEPSIS SEPSIS SEPSIS SEPSIS STANDING ORDER- MONTHLY general illness SHORTNESS OF BREATH Reason for Visit Acidosis, lactic Aspiration into airway Hyperpyrexia Sepsis Sinus tachycardia Chief Complaint STANDING ORDER- BECKY HLY general illness SHORTNESS OF BREATH Chief Complaint STANDING ORDER- BECKY HLY general illness SHORTNESS OF BREATH 2 DRS/ 2 ORDERS 4 M FU Chief Complaint SHORTNESS OF BREATH 2 DRS/ 2 ORDERS 4 M FU Chief Complaint 2 DRS/ 2 ORDERS 4 M FU RESPITE STAY RESPITE STAY RESPITE STAY RESPITE STAY RESPITE STAY RESPITE STAY RESPITE STAY RESPITE STAY RESPITE STAY RESPITE STAY RESPITE STAY Reason for Visit Chronic respiratory failure with hypoxia Chief Complaint 2 DRS/ 2 ORDERS 4 M FU RESPITE STAY RESPITE STAY RESPITE STAY RESPITE STAY RESPITE STAY RESPITE STAY RESPITE STAY RESPITE STAY RESPITE STAY RESPITE STAY RESPITE STAY GI BLEED Reason for Visit Cerebral palsy GI bleed Hematemesis Chief Complaint 2 DRS/ 2 ORDERS 4 M FU RESPITE STAY RESPITE STAY RESPITE STAY RESPITE STAY RESPITE STAY RESPITE STAY RESPITE STAY RESPITE STAY RESPITE STAY RESPITE STAY RESPITE STAY GI BLEED GI BLEED GI BLEED GI BLEED GI BLEED GI BLEED Reason for Visit Cerebral palsy GI bleed Hematemesis Chief Complaint RESPITE STAY RESPITE STAY RESPITE STAY RESPITE STAY RESPITE STAY RESPITE STAY RESPITE STAY RESPITE STAY RESPITE STAY RESPITE STAY RESPITE STAY GI BLEED GI BLEED GI BLEED GI BLEED GI BLEED GI BLEED nausea vomiting Reason for Visit GI bleed Hematemesis Chief Complaint RESPITE STAY RESPITE STAY RESPITE STAY GI BLEED GI BLEED GI BLEED GI BLEED GI BLEED GI BLEED nausea vomiting 4 M FU Reason for Visit Cerebral palsy GI bleed Hematemesis Cerebral palsy Chronic respiratory failure Chief Complaint GI BLEED GI BLEED GI BLEED GI BLEED GI BLEED GI BLEED nausea vomiting 4 M FU ACUTE HYPOXEMIC RESP FAILURE Reason for Visit Cerebral palsy GI bleed Hematemesis Cerebral palsy Chronic respiratory failure Acidosis, lactic Acute hypoxemic respiratory failure Aspiration pneumonia Cerebral palsy Chief Complaint GI BLEED GI BLEED GI BLEED GI BLEED GI BLEED GI BLEED nausea vomiting 4 M FU ACUTE HYPOXEMIC RESP FAILURE ACUTE HYPOXEMIC RESP FAILURE ACUTE HYPOXEMIC RESP FAILURE ACUTE HYPOXEMIC RESP FAILURE ACUTE HYPOXEMIC RESP FAILURE Reason for Visit Cerebral palsy GI bleed Hematemesis Cerebral palsy Chronic respiratory failure Acidosis, lactic Acute hypoxemic respiratory failure Aspiration pneumonia Emesis, persistent Cerebral palsy Chronic respiratory failure Chief Complaint nausea vomiting 4 M FU ACUTE HYPOXEMIC RESP FAILURE ACUTE HYPOXEMIC RESP FAILURE ACUTE HYPOXEMIC RESP FAILURE ACUTE HYPOXEMIC RESP FAILURE ACUTE HYPOXEMIC RESP FAILURE ACUTE HYPOXEMIC RESP FAILURE SOB Reason for Visit Cerebral palsy Chronic respiratory failure Cerebral palsy Chronic respiratory failure Acidosis, lactic Acute hypoxemic respiratory failure Emesis, persistent Chief Complaint 4 M FU ACUTE HYPOXEMIC RESP FAILURE ACUTE HYPOXEMIC RESP FAILURE ACUTE HYPOXEMIC RESP FAILURE ACUTE HYPOXEMIC RESP FAILURE ACUTE HYPOXEMIC RESP FAILURE ACUTE HYPOXEMIC RESP FAILURE SOB Reason for Visit Cerebral palsy Chronic respiratory failure Cerebral palsy Chronic respiratory failure Acidosis, lactic Acute hypoxemic respiratory failure Emesis, persistent Chief Complaint Admit Date LOWER EXTREM 2024 4 :07pm NWB, KATHLEEN LIFT, W/C BOUND March 16, 2024 3:28pm 4 M FU April 04, 2024 1:01pm Pathological fracture, unspecified femur , initial April 25, 2024 12:45pm INT LABSPEC May 09, 2024 10: 59am Reason for Visit Admit Date Chronic respiratory failure March 1:01pm Chief Complaint Admit Date NWB, KATHLEEN LIFT, W/C BOUND March 16, 2024 3:28pm 4 M FU April 04, 2024 1:01pm Pathological fracture, unspecified femur , initial April 25, 2024 12:45pm INT LABSPEC May 09, 2024 10: 59am OSTEOPOROSIS June 15, 2024 1:4 7pm Reason for Visit Admit Date Chronic respiratory failure March 1:01pm Osteoporosis June 15, 2024 1:4 7pm Chief Complaint Admit Date 4 M FU April 04, 2024 1:01pm Pathological fracture, unspecified femur , initial April 25, 2024 12:45pm INT [facility]SPEC May 09, 2024 10: 59am OSTEOPOROSIS June 15, 2024 1:4 7pm LABSPEC July 18, 2024 11:00 am Chief Complaint Admit Date 4 M FU April 04, 2024 1:01pm Pathological fracture, unspecified femur , initial April 25, 2024 12:45pm INT [facility]SPEC May 09, 2024 10: 59am OSTEOPOROSIS June 15, 2024 1:4 7pm LABSPEC July 18, 2024 11:00 am standing order July 25, 2024 9:48a m LEFT KNEE , LEG July 26, 2024 2:13p m Chief Complaint Admit Date Pathological fracture, unspecified femur , initial April 25, 2024 12:45pm INT [facility]SPEC May 09, 2024 10: 59am OSTEOPOROSIS June 15, 2024 1:4 7pm LABSPEC July 18, 2024 11:00 am standing order July 25, 2024 9:48a m LEFT KNEE , LEG July 26, 2024 2:13p m Reason for Visit Admit Date Osteoporosis June 15, 2024 1:4 7pm Chief Complaint Admit Date INT [facility]SPEC May 09, 2024 10: 59am OSTEOPOROSIS June 15, 2024 1:4 7pm [facility]SPEC July 18, 2024 11:00 am standing order July 25, 2024 9:48a m LEFT KNEE , LEG July 26, 2024 2:13p m Family History No Family History Records Found Relationship Condition Age at Onset Recorded Date/T rosario mother Hepatitis C virus infection Unknown Hypertension Unknown father Coronary artery disease Unknown Atrial fibrillation Unknown History of coronary artery stent placement Unknown Relationship Condition Age at Onset Recorded Date/T rosario mother Hepatitis C virus infection Unknown Hypertension Unknown HIV disease Unknown father History of coronary artery stent placement Unknown Coronary artery disease Unknown Atrial fibrillation Unknown Malignant neoplasm of esophagus Unknown Relationship Condition Age at Onset Recorded Date/T rosario mother Hepatitis C virus infection Unknown Hypertension Unknown HIV disease Unknown Cerebrovascular accident (CVA) Unknown Disorder of liver Unknown father History of coronary artery stent placement Unknown Coronary artery disease Unknown Atrial fibrillation Unknown Malignant neoplasm of esophagus Unknown grandmother Asthma Unknown Diverticulitis Unknown Diabetes mellitus Unknown Myocardial infarction Unknown Cardiac disease Unknown Advance Directives No Advanced Directives Records Found Advance Directive Response Recorded Date/ Time Advance Directives No March 12, 2016 10:51am Living Will No May 19, 2021 9:15pm Power of Pharmacy Grad Intern No May 19 9:15pm Advance Directive Response Recorded Date/ Time Advance Directives No March 12, 2016 10:51am Living Will No November 30 11:11am Power of Pharmacy Grad Intern No November 30 11:11am Advance Directive Response Recorded Date/ Time Advance Directives No March 12, 2016 10:51am Living Will No November 30 3:13pm Power of Pharmacy Grad Intern No November 30 3:13pm Advance Directive Response Recorded Date/ Time Advance Directives No March 12, 2016 9:51am Living Will No November 30 2:13pm Power of Pharmacy Grad Intern No November 30 2:13pm Advance Directive Response Recorded Date/ Time Name of Medical Power of Pharmacy Grad Intern PT MOM February 24, 2022 4:16pm Advance Directives No March 12, 2016 9:51am Living Will No February 24 4:16pm Power of Pharmacy Grad Intern Yes February 24, 2 023 4:16pm Advance Directive Response Recorded Date/ Time Name of Medical Power of Pharmacy Grad Intern PT MOM February 24, 2022 4:16pm Name of Medical Power of Pharmacy Grad Intern parents Miky Pelaez March 24, 2022 5:11pm Advance Directives No March 12, 2016 9:51am Living Will No March 24 5:11pm Power of Pharmacy Grad Intern Yes March 24, 2022 5:11pm Advance Directive Response Recorded Date/ Time Name of Medical Power of Pharmacy Grad Intern PT MOM February 24, 2022 4:16pm Name of Medical Power of Pharmacy Grad Intern parents Miky viera nd Benigno March 24, 2022 5:11pm Advance Directives No March 12, 2016 9:51am Living Will No March 24 9:35pm Power of Pharmacy Grad Intern No March 24, 2022 9:35pm Latest Code Status on File Code Status Date Activated Date Inactivated Comments Full Code 07/15/2018 5:17 AM 07/17/2018 7:13 PM Full Code Order Discussed With: Surrogate Decisi on Maker Full Code 04/01/2018 1:39 PM 06/29/2018 3:36 PM Full Code Order Discussed With: Surrogate Decisi on Maker Surrogate Decision Maker Relationship: Parents Advance Directive Response Recorded Date/ Time Name of Medical Power of Pharmacy Grad Intern PT MOM February 24, 2022 5:16pm Name of Medical Power of Pharmacy Grad Intern parents Miky Pelaez March 24, 2022 6:11pm Advance Directives No March 12, 2016 10:51am Living Will No March 24 10:35pm Power of Pharmacy Grad Intern No March 24, 2022 10:35pm Advance Directive Response Recorded Date/ Time Name of Medical Power of Pharmacy Grad Intern PT MOM February 24, 2022 5:16pm Name of Medical Power of Pharmacy Grad Intern parents Miky Pelaez March 24, 2022 6:11pm Advance Directives No March 12, 2016 10:51am Living Will No June 12, 2022 10:42am Power of Pharmacy Grad Intern No June 12 10:42am Advance Directive Response Recorded Date/ Time Name of Medical Power of Pharmacy Grad Intern PT MOM February 24, 2022 5:16pm Name of Medical Power of Pharmacy Grad Intern parents Miky Pelaez March 24, 2022 6:11pm Name of Medical Power of Pharmacy Grad Intern MOTHER June 22, 2022 6:28pm Advance Directives No March 12, 2016 10:51am Living Will No June 22, 2022 6: 28pm Power of Pharmacy Grad Intern Yes June 22, 2022 6:28pm Advance Directive Response Recorded Date/ Time Name of Medical Power of Pharmacy Grad Intern MOTHER June 22, 2022 6:28pm Advance Directives No March 12, 2016 10:51am Living Will No June 22, 2022 6: 28pm Power of Pharmacy Grad Intern Yes June 22, 2022 6:28pm Advance Directive Response Recorded Date/ Time Name of Medical Power of Pharmacy Grad Intern Matteo & Benigno S prosty October 27, 2022 5:26pm Advance Directives No March 12, 2016 10:51am Living Will No October 27, 023 5:26pm Power of Pharmacy Grad Intern Yes October 27, 2022 5:26pm Advance Directive Response Recorded Date/ Time Name of Medical Power of Pharmacy Grad Intern Matteo & Benigno S prosty October 27, 2022 5:26pm Advance Directives No March 12, 2016 10:51am Living Will No December 10 9:56am Power of Pharmacy Grad Intern No December 10, 2022 9:56am Advance Directive Response Recorded Date/ Time Name of Medical Power of Pharmacy Grad Intern Matteo & Benigno S prosty October 27, 2022 5:26pm Advance Directives No March 12, 2016 10:51am Living Will No December 10 2:53pm Power of Pharmacy Grad Intern No December 10, 2022 2:53pm Advance Directive Response Recorded Date/ Time Advance Directives No March 12, 2016 9:51am Living Will No January 16, 023 7:25pm Power of Pharmacy Grad Intern No January 16, 2023 7:25pm Name of Medical Power of Pharmacy Grad Intern Matteo & Benigno S prosty October 27, 2022 4:26pm Advance Directive Response Recorded Date/ Time Name of Medical Power of Pharmacy Grad Intern Mother March 23, 2023 12:16pm Advance Directives No March 12, 2016 9:51am Living Will No Kiah 30th, 20 24 12:16pm Power of Pharmacy Grad Intern Yes March 23, 2023 12:16pm Advance Directive Response Recorded Date/ Time Name of Medical Power of Pharmacy Grad Intern Mother March 23, 2023 5:05pm Advance Directives No March 12, 2016 9:51am Living Will No March 23 5:05pm Power of Pharmacy Grad Intern Yes March 23, 2023 5:05pm Advance Directive Response Recorded Date/ Time Name of Medical Power of Pharmacy Grad Intern Mother March 23, 2023 5:05pm Name of Medical Power of Pharmacy Grad Intern parents April 13, 2023 12:23pm Advance Directives No March 12, 2016 9:51am Living Will Yes April 13 12:23pm Power of Pharmacy Grad Intern Yes April 13, 2023 12:23pm Advance Directive Response Recorded Date/ Time Name of Medical Power of Pharmacy Grad Intern Mother March 23, 2023 6:05pm Name of Medical Power of Pharmacy Grad Intern parents April 13, 2023 1:23pm Advance Directives No March 12, 2016 10:51am Living Will Yes April 13 1:23pm Power of Pharmacy Grad Intern Yes April 13, 2023 1:23pm Advance Directive Response Recorded Date/ Time Living Will Yes April 13 1:23pm Do you have a Healthcare Power of Pharmacy Grad Intern? Yes April 13, 2023 1:23pm Living Will No January 30 5:12pm Do you have a Healthcare Power of Pharmacy Grad Intern? No 2024 5:12pm Advance Directives No March 12, 2016 10:51am Advance Directive Response Recorded Date/ Time Living Will Yes April 13 1:23pm Do you have a Healthcare Power of Pharmacy Grad Intern? Yes April 13, 2023 1:23pm Advance Directives No March 12, 2016 10:51am Advance Directive Response Recorded Date/ Time Advance Directives No March 12, 2016 10:51am Summary Purpose Additional Source Comments Goals (unrecognized section and content) Goals may be documented in a n alternate sectionGoals may be documented in an alternate sectionGoals may be documented in an alternate sectionGoals may be documented in an alternate sectionGoals may be documented in an alternate sectionGoals may be documented in an alternate sectionGoals may be documented in an alternate sectionGoals may be documented in an alternate sectionGoals may be documented in an alternate sectionGoals may be documented in an alternate sectionGoals may be documented in an alternate sectionGoals may be documented in an alternate sectionGoals may be documented in an alternate sectionGoals may be documented in an alternate sectionGoals may be documented in an alternate sectionGoals may be documented in an alternate sectionGoals may be documented in an alternate section Care Teams (unrecognized sec tion and content) Team Status: Active Member Role Status Dates Dr. Chente Conn MD Family Provider Active Dr. Chente Conn MD Primary Care Provider Active Team Status: Inactive Member Role Status Dates Dr. Chente Conn MD Primary Care Provider, Referr ing Provider Active Valarie Kee PLATEMAKER, PLATEMAKER-C Attending Provider Active Team Status: Active Member Role Status Dates Dr. Chente Conn MD Primary Care Provider Active Dayo Jo MD Emergency Provider Active Dr. Cindy Alexandre MD Admit Provider, Referring Provider, Other Provider Active Dr. Jacek Monsalve MD Other Provider Active Dr. Yovanny Moreira DO Attending Provider, Other Provide r Active Dr. Armando Plaza MD Other Provider Active Dr. John Tolentino MD Other Provider Active Valarie Kee PLATEMAKER, PLATEMAKER-C Other Provider Active Dr. Lucia Dillard MD Other Provider Active Dr. Fiona Echavarria MD Other Provider Active Team Status: Active Member Role Status Dates Dr. Chente Conn MD Primary Care Provider Active Dayo Jo MD Emergency Provider Active Dr. Cindy Alexandre MD Admit Provider, Other Provider Active Dr. Jacek Monsalve MD Other Provider Active Dr. Yovanny Moreira DO Other Provider Active Dr. Armando Plaza MD Other Provider Active Dr. John Tolentino MD Other Provider Active Valarie Kee PLATEMAKER, PLATEMAKER-C Other Provider Active Dr. Lucia Dillard MD Attending Provider, Other Provid er Active Dr. Fiona Echavarria MD Other Provider Active Team Status: Active Member Role Status Dates Dr. Chente Conn MD Primary Care Provider Active Dayo Jo MD Emergency Provider Active Dr. Cindy Alexandre MD Admit Provider, Other Provider Active Dr. Jacek Monsalve MD Attending Provider, Other Provid er Active Dr. Yovanny Moreira DO Other Provider Active Dr. Armando Plaza MD Other Provider Active Dr. John Tolentino MD Other Provider Active Valarie Kee PLATEMAKER, PLATEMAKER-C Other Provider Active Dr. Lucia Dillard MD Other Provider Active Dr. Fiona Echavarria MD Other Provider Active Dr. Luis Simon MD Other Provider Active Team Status: Active Member Role Status Dates Dr. Chente Conn MD Primary Care Provider Active Dayo Jo MD Emergency Provider Active Dr. Cindy Alexandre MD Admit Provider, Other Provider Active Dr. Jacek Monsalve MD Other Provider Active Dr. Yovanny Moreira , Other Provider Active Dr. Armando Plaza MD Other Provider Active Dr. John Tolentino MD Other Provider Active Valarie Kee PLATEMAKER, PLATEMAKER-C Other Provider Active Dr. Lucia Dillard MD Attending Provider, Other Provid er Active Dr. Fiona Echavarira MD Other Provider Active Dr. Luis Simon MD Other Provider Active Team Status: Active Member Role Status Dates Dr. Chente Conn MD Primary Care Provider Active Dayo Jo MD Emergency Provider Active Dr. Cindy Alexandre MD Admit Provider, Other Provider Active Dr. Jacek Monsalve MD Other Provider Active Dr. Yovanny Moreira , Other Provider Active Dr. Armando Plaza MD Other Provider Active Dr. John Tolentino MD Other Provider Active Valarie Kee NP, PLATEMAKER-C Other Provider Active Dr. Lucia Dillard MD Other Provider Active Dr. Fiona Echavarria MD Other Provider Active Dr. Luis Simon MD Attending Provider, Other Provider Active Dr. Roberto Hathaway MD Other Provider Active Dr. Barry Young MD Referring Provider Active Team Status: Active Member Role Status Dates Dr. Chente Conn MD Primary Care Provider Active Dayo Jo MD Emergency Provider Active Dr. Cindy Alexandre MD Admit Provider, Other Provider Active Dr. Jacek Monsalve MD Attending Provider, Other Provid er Active Dr. Yovanny Moreira , DO Other Provider Active Dr. Armando Plaza MD Other Provider Active Dr. John Tolentino MD Other Provider Active Valarie Kee NP, PLATEMAKER-C Other Provider Active Dr. Lucia Dillard MD Other Provider Active Dr. Fiona Echavarria MD Other Provider Active Dr. Luis Simon MD Other Provider Active Dr. Roberto Hathaway MD Other Provider Active Team Status: Active Member Role Status Dates Dr. Chente Conn MD Primary Care Provider Active Dayo Jo MD Emergency Provider Active Dr. Cindy Alexandre MD Admit Provider, Other Provider Active Dr. Jacek Monsalve MD Other Provider Active Dr. Yovanny Moreira , Other Provider Active Dr. Armando Plaza MD Other Provider Active Dr. John Tolentino MD Other Provider Active Valarie Kee PLATEMAKER, PLATEMAKER-C Other Provider Active Dr. Lucia Dillard MD Attending Provider, Other Provid er Active Dr. Fiona Echavarria MD Other Provider Active Dr. Luis Simon MD Other Provider Active Dr. Roberto Hathaway MD Other Provider Active Team Status: Active Member Role Status Dates Dr. Chente Conn MD Primary Care Provider Active Dayo Jo MD Emergency Provider Active Dr. Cindy Alexandre MD Admit Provider, Other Provider Active Dr. Jacek Monsalve MD Other Provider Active Dr. Yovanny Moreira , Other Provider Active Dr. Armando Plaza MD Other Provider Active Dr. John Tolentino MD Other Provider Active Valarie Kee PLATEMAKER, PLATEMAKER-C Other Provider Active Dr. Fiona Echavarria MD Other Provider Active Dr. Luis Simon MD Other Provider Active Dr. Roberto Hathaway MD Other Provider Active Dr. Barry Young MD Attending Provider, Other Provider Active Dr. Lucia Dillard MD Other Provider Active Team Status: Inactive Member Role Status Dates Dr. Chente Conn MD Primary Care Provider, Referr ing Provider Active Dr. Maury Waite MD Attending Provider Active Team Status: Active Member Role Status Dates Dr. Chente Conn MD Primary Care Provider Active Dr. Maury Waite MD Attending Provider Active Dr. Cindy Alexandre MD Referring Provider Active Team Status: Inactive Member Role Status Dates Dr. Chente Conn MD Primary Care Provider Active Dr. Roberto Hathaway MD Other Provider Active Dr. Maury Waite MD Attending Provider, Referring Pro vider Active Team Status: Inactive Member Role Status Dates Dr. Chente Conn MD Primary Care Provider Active Dayo Jo MD Emergency Provider Active Dr. Cindy Alexandre MD Admit Provider, Other Provider Active Dr. Jacek Monsalve MD Other Provider Active Dr. Yovanny Moreira , Other Provider Active Dr. Armando Plaza MD Other Provider Active Dr. John Tolentino MD Other Provider Active Valarie Kee PLATEMAKER, PLATEMAKER-C Other Provider Active Dr. Fiona Echavarria MD Other Provider Active Dr. Luis Simon MD Other Provider Active Dr. Roberto Hathaway MD Other Provider Active Dr. Barry Young MD Attending Provider Active Dr. Lucia Dillard MD Other Provider Active Team Status: Inactive Member Role Status Dates Dr. Chente Conn MD Primary Care Provider Active Dr. Maury Waite MD Attending Provider Active Team Status: Active Member Role Status Dates Dr. Chente Conn MD Primary Care Provider Active Dr. Maury Waite MD Attending Provider, Referring Pro vider Active Team Status: Inactive Member Role Status Dates Dr. Chente Conn MD Primary Care Provider Active Dr. Dario De La Torre MD Attending Provider, Emergency Provi carlene Active Team Status: Active Member Role Status Dates Dr. Chente Conn MD Primary Care Provider Active Dr. Dario De La Torre MD Emergency Provider Active Dr. Fiona Echavarria MD Admit Provider, Attending Provider Active Team Status: Active Member Role Status Dates Dr. Chente Conn MD Primary Care Provider Active Dr. Dario De La Torre MD Emergency Provider Active Dr. Fiona Echavarria MD Admit Provider, Atte nding Provider, Other Provider Active Dr. Jacek Monsalve MD Other Provider Active Dr. Yovanny Moreira , Other Provider Active Dr. Armando Plaza MD Other Provider Active Dr. John Tolentino MD Other Provider Active Valarie Kee PLATEMAKER, PLATEMAKER-C Other Provider Active Team Status: Inactive Member Role Status Dates Dr. Chente Conn MD Primary Care Provider Active Dr. Maury Waite MD Attending Provider, Referring Pro vider Active Team Status: Active Member Role Status Dates Dr. Chente Conn MD Primary Care Provider Active Dr. Dario De La Torre MD Emergency Provider Active Dr. Fiona Echavarria MD Admit Provider, Attending Provider Active Dr. Jacek Monsalve MD Other Provider Active Dr. Yovanny Moreira , DO Other Provider Active Dr. Armando Plaza MD Other Provider Active Dr. 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 Worker Relationship Specialty Start Date End Date Chente Perkins MD [address] [place] [address] PCP - General 06/03/00 [facility] 05/19/18 Freezing Room Worker Relationship Specialty Start Date End Date Chente Perkins MD [address] [place] [address] PCP - General 06/03/00 [facility] 05/19/18 Freezing Room Worker Relationship Specialty Start Date End Date Chente Perkins MD [address] [place] [address] PCP - General 06/03/00 [facility] 05/19/18 Team Status: Active Member Role Status Dates Dr. Chente Conn MD Primary Care Provider Active Dr. Dario De La Torre MD Emergency Provider Active Dr. Fiona Echavarria MD Admit Provider, Other Provider Act jeanette Dr. Jacek Monsalve MD Other Provider Active Dr. Yovanny Moreira , DO Other Provider Active Dr. Armando Plaza MD Other Provider Active Dr. John Tolentino MD Other Provider Active Valarie Kee PLATEMAKER, PLATEMAKER-C Other Provider Active Dr. Lucia Dillard MD Attending Provider Active Team Status: Active Member Role Status Dates Dr. Chente Conn MD Primary Care Provider Active Dr. Dario De La Torre MD Emergency Provider Active Dr. Fiona Echavarria MD Admit Provider, Other Provider Act jeanette Dr. Jacek Monsalve MD Attending Provider, Other Provid er Active Dr. Yovanny Moreira , Other Provider Active Dr. Armando Plaza MD Other Provider Active Dr. John Tolentnio MD Other Provider Active Valarie Kee PLATEMAKER, PLATEMAKER-C Other Provider Active Dr. Lucia Dillard MD Other Provider Active Team Status: Active Member Role Status Dates Dr. Chente Conn MD Primary Care Provider Active Dr. Dario De La Torre MD Emergency Provider Active Dr. Fiona Echavarria MD Admit Provider, Other Provider Act jeanette Dr. Jacek Monsalve MD Other Provider Active Dr. Yovanny Moreira , Other Provider Active Dr. Armando Plaza MD Other Provider Active Dr. John Tolentino MD Other Provider Active Valarie Kee PLATEMAKER, PLATEMAKER-C Other Provider Active Dr. Luica Dillard MD Attending Provider, Other Provid er Active Team Status: Active Member Role Status Dates Dr. Chente Conn MD Primary Care Provider Active Dr. Dario De La Torre MD Emergency Provider Active Dr. Fiona Echavarria MD Admit Provider, Other Provider Act jeanette Dr. Jacek Monsalve MD Other Provider Active Dr. Yovanny Moreira , Other Provider Active Dr. Armando Plaza MD Other Provider Active Dr. John Tolentino MD Other Provider Active Valarie Kee PLATEMAKER, PLATEMAKER-C Other Provider Active Dr. Lucia Dillard MD Attending Provider, Other Provid er Active Dr. Roberto Hathaway MD Other Provider Active Team Status: Active Member Role Status Dates Dr. Chente Conn MD Primary Care Provider Active Dr. Dario De La Torre MD Emergency Provider Active Dr. Fiona Echavarria MD Admit Provider, Other Provider Act jeanette Dr. Jacek Monsalve MD Attending Provider, Other Provid er Active Dr. Yovanny Moreira , Other Provider Active Dr. Armando Plaza MD Other Provider Active Dr. John Tolentino MD Other Provider Active Valarie Kee PLATEMAKER, PLATEMAKER-C Other Provider Active Dr. Lucia Dillard MD Other Provider Active Dr. Roberto Hathaway MD Other Provider Active Dr. Cindy Alexandre MD Referring Provider Active Team Status: Active Member Role Status Dates Dr. Chente Conn MD Primary Care Provider Active Dr. Dario De La Torre MD Emergency Provider Active Dr. Fiona Echavarria MD Admit Provider, Other Provider Act jeanette Dr. Jacek Monsalve MD Attending Provider, Other Provid er Active Dr. Yovanny Moreira , Other Provider Active Dr. Armando Plaza MD Other Provider Active Dr. John Tolentino MD Other Provider Active Valarie Kee PLATEMAKER, PLATEMAKER-C Other Provider Active Dr. Lucia Dillard MD Other Provider Active Dr. Roberto Hathaway MD Other Provider Active Dr. Luis Simon MD Other Provider Active Dr. Cindy Alexandre MD Referring Provider Active Team Status: Active Member Role Status Dates Dr. Chente Conn MD Primary Care Provider Active Dr. Dario De La Torre MD Emergency Provider Active Dr. Fiona Echavarria MD Admit Provider, Other Provider Act jeanette Dr. Jacek Monsalve MD Other Provider Active Dr. Yovanny Moreira DO Other Provider Active Dr. Armando Plaza MD Other Provider Active Dr. John Tolentino MD Other Provider Active Valarie Kee NP, PLATEMAKER-C Other Provider Active Dr. Lucia Dillard MD Attending Provider, Other Provid er Active Dr. Roberto Hathaway MD Other Provider Active Dr. Luis Simon MD Other Provider Active Team Status: Active Member Role Status Dates Dr. Chente Conn MD Primary Care Provider Active Dr. Dario De La Torre MD Emergency Provider Active Dr. Fiona Echavarria MD Admit Provider, Other Provider Act jeanette Dr. Jacek Monsalve MD Other Provider Active Dr. Yovanny Moreira DO Other Provider Active Dr. Armando Plaza MD Other Provider Active Dr. John Tolentino MD Other Provider Active Valarie Kee NP, PLATEMAKER-C Other Provider Active Dr. Lucia Dillard MD Other Provider Active Dr. Roberto Hathaway MD Other Provider Active Dr. Luis Simon MD Attending Provider, Other Provider Active Dr. Cindy Alexandre MD Referring Provider Active Team Status: Active Member Role Status Dates Dr. Chente Conn MD Primary Care Provider Active Dr. Dario De La Torre MD Emergency Provider Active Dr. Fiona Echavarria MD Admit Provider, Other Provider Act jeanette Dr. Jacek Monsalve MD Other Provider Active Dr. Yovanny Moreira , Attending Provider, Other Provide r Active Dr. Armando Plaza MD Other Provider Active Dr. John Tolentino MD Other Provider Active Valarie Kee NP, PLATEMAKER-C Other Provider Active Dr. Roberto Hathaway MD Other Provider Active Dr. Luis Simon MD Other Provider Active Dr. Cindy Alexandre MD Referring Provider, Other Prov ider Active Dr. Lucia Dillard MD Other Provider Active Team Status: Active Member Role Status Dates Dr. Chente Conn MD Primary Care Provider Active Dr. Dario De La Torre MD Emergency Provider Active Dr. Fiona Echavarria MD Admit Provider, Other Provider Act jeanette Dr. Jacek Monsalve MD Other Provider Active Dr. Yovanny Moreira DO Other Provider Active Dr. Armando Plaza MD Other Provider Active Dr. John Tolentino MD Other Provider Active Valarie Kee PLATEMAKER, PLATEMAKER-C Other Provider Active Dr. Roberto Hathaway MD Other Provider Active Dr. Luis Simon MD Other Provider Active Dr. Cindy Alexandre MD Attending Provider, Other Prov ider Active Dr. Lucia Dillard MD Other Provider Active Dr. Luis Carlos Henderson MD Other Provider Active Team Status: Active Member Role Status Dates Dr. Chente Conn MD Primary Care Provider Active Dr. Dario De La Torre MD Emergency Provider Active Dr. Fiona Echavarria MD Admit Provider, Other Provider Act jeanette Dr. Jacek Monsalve MD Other Provider Active Dr. Yovanny Moreira DO Attending Provider, Other Provide r Active Dr. Armando Plaza MD Other Provider Active Dr. John Tolentino MD Other Provider Active Valarie Kee NP, PLATEMAKER-C Other Provider Active Dr. Roberto Hathaway MD Other Provider Active Dr. Luis Simon MD Other Provider Active Dr. Cindy Alexandre MD Referring Provider, Other Prov ider Active Dr. Lucia Dillard MD Other Provider Active Dr. Luis Carlos Henderson MD Other Provider Active Team Status: Inactive Member Role Status Dates Dr. Chente Conn MD Primary Care Provider Active Dr. Dario De La Torre MD Emergency Provider Active Dr. Fiona Echavarria MD Admit Provider, Other Provider Act jeanette Dr. Jacek Monsalve MD Other Provider Active Dr. Yovanny Moreira DO Other Provider Active Dr. Armando Plaza MD Other Provider Active Dr. John Tolentino MD Other Provider Active Valarie Kee PLATEMAKER, PLATEMAKER-C Other Provider Active Dr. Roberto Hathaway MD Other Provider Active Dr. Luis Simon MD Other Provider Active Dr. Cindy Alexandre MD Attending Provider Active Dr. Lucia Dillard MD Other Provider Active Dr. Luis Carlos Henderson MD Other Provider Active Team Status: Inactive Member Role Status Dates Dr. Chente Conn MD Primary Care Provider Active Dr. Naveen Munoz DO Referring Provider, Emergency P zulema Active Freezing Room Worker Relationship Specialty Start Date End Date Chente Perkins MD [address] [place] [id number] PCP - General 06/03/00 [facility] 05/19/18 Team Status: Inactive Member Role Status Dates Dr. Chente Conn MD Primary Care Provider Active Dr. Naveen Munoz DO Attending Provide r, Referring Provider, Emergency Provider Active Team Status: Inactive Member Role Status Dates Dr. Chente Conn MD Primary Care Provider Active Dr. Siddharth De La Rosa MD Emergency Provider Active Team Status: Inactive Member Role Status Dates Dr. Chente Conn MD Primary Care Provider Active Dr. Siddharth De La Rosa MD Attending Provider, Emergency Provider Active Team Status: Active Member Role Status Dates Dr. Chente Conn MD Primary Care Provider Active Dr. Torey Huffman MD Attending Provider Active Team Status: Inactive Member Role Status Dates Dr. Chente Conn MD Primary Care Provider Active Dr. Torey Huffman MD Attending Provider, Referring Prov ider Active Team Status: Inactive Member Role Status Dates Dr. Chente Conn MD Primary Care Provider, Referr ing Provider Active Dr. Jacek Monsalve MD Attending Provider Active Team Status: Inactive Member Role Status Dates Dr. Chente Conn MD Primary Care Provider Active Dr. Torey Huffman MD Attending Provider Active Team Status: Inactive Member Role Status Dates Dr. Chente Conn MD Primary Care Pr ovider, Attending Provider, Referring Provider Active Dr. Torey Huffman MD Other Provider Active Team Status: Active Member Role Status Dates Dr. Chente Conn MD Primary Care Provider Active Dr. Camacho Gonzalez DO Admit Provider, Other Provide r Active Dr. Barry Young MD Attending Provider, Other Provider Active Team Status: Active Member Role Status Dates Dr. Chente Conn MD Primary Care Provider Active Dr. Camacho Gonzalez DO Admit Provider, Other Provide r Active Dr. Barry Young MD Other Provider Active Dr. Cindy Alexandre MD Attending Provider Active Team Status: Active Member Role Status Dates Dr. Chente Conn MD Primary Care Provider Active Dr. Camacho Gonzalez DO Admit Provider, Other Provide r Active Dr. Cindy Alexandre MD Attending Provider, Other Prov ider Active Dr. Barry Young MD Other Provider Active Team Status: Active Member Role Status Dates Dr. Chente Conn MD Primary Care Provider Active Dr. Camacho Gonzalez DO Admit Provider, Other Provide r Active Dr. Barry Young MD Other Provider Active Dr. Michael Posadas MD Attending Provider, Other Provid er Active Dr. Cindy Alexandre MD Other Provider Active Team Status: Active Member Role Status Dates Dr. Chente Conn MD Primary Care Provider Active Dr. Camacho Gonzalez DO Admit Provider, Other Provide r Active Dr. Barry Young MD Other Provider Active Dr. Cindy Alexandre MD Other Provider Active Dr. Vanessa Roberts DO Attending Provider, Other Provide r Active Dr. Michael Posadas MD Other Provider Active Team Status: Inactive Member Role Status Dates Dr. Chente Conn MD Primary Care Provider Active Dr. Camacho Gonzalez DO Admit Provider, Other Provide r Active Dr. Barry Young MD Other Provider Active Dr. Cindy Alexandre MD Other Provider Active Dr. Vanessa Roberts DO Attending Provider Active Dr. Michael Posadas MD Other Provider Active Team Status: Active Member Role Status Dates Dr. Chente Conn MD Primary Care Provider Active Dr. Torey Huffman MD Attending Provider, Referring Prov ider Active Team Status: Active Member Role Status Dates Dr. Chente Conn MD Primary Care Provider Active Dr. Miky Rahman DO Emergency Provider Active Dr. Donte Abebe DO Admit Provider, Attending Provider Active Team Status: Active Member Role Status Dates Dr. Chente Conn MD Primary Care Provider Active DrRoxanne Gregory DO Attending Provider Active Team Status: Active Member Role Status Dates Dr. Chente Conn MD Primary Care Provider Active Dr. Miky Rahman DO Emergency Provider Active Dr. Donte Abebe DO Admit Provi carlene, Attending Provider, Other Provider Active Team Status: Active Member Role Status Dates Dr. Chente Conn MD Primary Care Provider Active Dr. Miky Rahman DO Emergency Provider Active Dr. Donte Abebe DO Admit Provider, Other Pro vider Active Dr. Stefan Gregory DO Attending Provider Active Team Status: Inactive Member Role Status Dates Dr. Chente Conn MD Primary Care Provider Active Dr. Miky Rhaman DO Emergency Provider Active Dr. Donte Abebe DO Admit Provider, Attending Provider Active Team Status: Active Member Role Status Dates Dr. Chente Conn MD Primary Care Provider Active Dr. Stefan Gregory DO Attending Provider Active Dr. Donte Abebe DO Referring Provider Active Team Status: Active Member Role Status Dates Dr. Chente Conn MD Primary Care Provider Active Dr. Miky Rahman DO Emergency Provider Active Dr. Donte Abebe DO Admit Provi carlene, Referring Provider, Other Provider Active Dr. Stefan Gregory DO Attending Provider Active Team Status: Inactive Member Role Status Dates Dr. Chente Conn MD Primary Care Provider Active Dr. Dalton Lester DO Emergency Provider Active Team Status: Inactive Member Role Status Dates Dr. Chente Conn MD Primary Care Provider Active Dr. Dalton Lester DO Attending Provider, Emergency Provider Active Team Status: Active Member Role Status Dates Dr. Chente Conn MD Primary Care Provider Active Dr. Siddharth De La Rosa MD Emergency Provider Active Dr. Lucia Dillard MD Admit Provider, Attending Provid er Active Team Status: Active Member Role Status Dates Dr. Chente Conn MD Primary Care Provider Active Dr. Siddharth De La Rosa MD Emergency Provider Active Dr. Lucia Dillard MD Admit Provider, At tending Provider, Other Provider Active Team Status: Active Member Role Status Dates Dr. Chente Conn MD Primary Care Provider Active Dr. Siddharth De La Rosa MD Emergency Provider Active Dr. Lucia Dillard MD Admit Provider, Other Provider A ctive Dr. Krishna Siddiqui MD Other Provider Active Dr. Jacek Monsalve MD Attending Provider, Other Provid er Active Dr. Yovanny Moreira , Other Provider Active Dr. Mckinley Tristan MD Other Provider Active Dr. Cari Cavazos MD Other Provider Active Dr. Zackary Castro MD Other Provider Active Dr. Gris Hewitt MD Other Provider Active Dr. Patrice Langley MD Other Provider Active Dr. Goran Rose MD Other Provider Active Dr. Luis Mohr MD Other Provider Active Dr. Vito Bright MD Other Provider Active Dr. Luther Huggins MD Other Provider Active Dr. Camacho Gonzalez , Other Provider Active Team Status: Active Member Role Status Dates Dr. Chente Conn MD Primary Care Provider Active Dr. Siddharth De La Rosa MD Emergency Provider Active Dr. Lucia Dillard MD Admit Provider, Other Provider A ctive Dr. Krishna Siddiqui MD Other Provider Active Dr. Jacek Monsalve MD Other Provider Active Dr. Yovanny Moreira , Other Provider Active Dr. Mckinley Tristan MD Other Provider Active Dr. Cari Cavazos MD Other Provider Active Dr. Zackary Castro MD Other Provider Active Dr. Gris Hewitt MD Other Provider Active Dr. Patrice Langley MD Other Provider Active Dr. Goran Rose MD Other Provider Active Dr. Luis Mohr MD Other Provider Active Dr. Vito Bright MD Other Provider Active Dr. Luther Huggins MD Other Provider Active Dr. Camacho Gonzalez DO Attending Provider, Other Pro vider Active Team Status: Inactive Member Role Status Dates Dr. Chente Conn MD Primary Care Provider Active Dr. Siddharth De La Rosa MD Emergency Provider Active Dr. Lucia Dillard MD Admit Provider, Other Provider A ctive Dr. Krishna Siddiqui MD Other Provider Active Dr. Jacek Monsalve MD Other Provider Active Dr. Yovanny Moreira , Other Provider Active Dr. Mckinley Tristan MD Other Provider Active Dr. Cari Cavazos MD Other Provider Active Dr. Zackary Castro MD Other Provider Active Dr. Gris Hewitt MD Other Provider Active Dr. Patrice Langley MD Other Provider Active Dr. Goran Rose MD Other Provider Active Dr. Luis Mohr MD Other Provider Active Dr. Vito Bright MD Other Provider Active Dr. Luther Huggins MD Other Provider Active Dr. Camacho Gonzalez DO Attending Provider Active Team Status: Active Member Role Status Dates Dr. Chente Conn MD Primary Care Provider Active Dr. Siddharth De La Rosa MD Emergency Provider Active Dr. Lucia Dillard MD Admit Provider, Other Provider A ctive Dr. Krishna Siddiqui MD Other Provider Active Dr. Jacek Monsalve MD Attending Provider, Other Provid er Active Dr. Yovanny Moreira DO Other Provider Active Dr. Mckinley Tristan MD Other Provider Active Dr. Cari Cavazos MD Other Provider Active Dr. Zackary Castro MD Other Provider Active Dr. Gris Hewitt MD Other Provider Active Dr. Patrice Langley MD Other Provider Active Dr. Goran Rose MD Other Provider Active Dr. Luis Mohr MD Other Provider Active Dr. Vito Bright MD Other Provider Active Dr. Luther Huggins MD Other Provider Active Dr. Camacho Gonzalez DO Referring Provider, Other Pro vider Active Team Status: Inactive Member Role Status Dates Dr. Chente Conn MD Primary Care Provider Active Dr. Anthony Russell MD Emergency Provider Active Team Status: Inactive Member Role Status Dates Dr. Chente Conn MD Primary Care Provider Active Dr. Anthony Russell MD Attending Provider, Emergency Pro vider Active Team Status: Active Member Role Status Dates Dr. Chente Conn MD Family Provider Active Dr. Torey Huffman MD Primary Care Provider Active Team Status: Inactive Member Role Status Dates Dr. Torey Huffman MD Primary Care Provider, Attending [facility] Active Team Status: Active Member Role Status Dates Dr. Chente Conn MD Primary Care Provider Active Team Status: Inactive Member Role Status Dates Dr. Chente Conn MD Primary Care Provider Active Start: January 27, 2024 End: February 22, 2024 Dr. Chente Conn MD Attending Provider Active Start: January 27, 2024 End: February 22, 2024 Dr. Chente Conn MD Referring Provider Active Start: January 27, 2024 End: February 22, 2024 Team Status: Inactive Member Role Status Dates Dr. hCente Conn MD Primary Care Provider Active Start: 2024 End: 2024 Dr. Racquel Moss DO Attending Provider Active S tart: 2024 End: 2024 Dr. Racquel Moss DO Emergency Provider Active S tart: 2024 End: 2024 Team Status: Active Member Role Status Dates Dr. Chente Conn MD Primary Care Provider Active Start: 2024 Dr. Torey Weber MD Attending Provider Active S tart: 2024 Dr. Racquel Moss DO Referring Provider Active S tart: 2024 Team Status: Inactive Member Role Status Dates Dr. Chente Conn MD Primary Care Provider Active Start: February 24, 2024 End: March 24, 2024 Dr. Chente Conn MD Attending Provider Active Start: February 24, 2024 End: March 24, 2024 Dr. Chente Conn MD Referring Provider Active Start: February 24, 2024 End: March 24, 2024 Team Status: Inactive Member Role Status Dates Dr. Chente Conn MD Primary Care Provider Active Start: March 08, 2024 End: March 08, 2024 Dr. Chente Conn MD Attending Provider Active Start: March 08, 2024 End: March 08, 2024 Dr. Chente Conn MD Referring Provider Active Start: March 08, 2024 End: March 08, 2024 Team Status: Inactive Member Role Status Dates Dr. Chente Conn MD Primary Care Provider Active Start: March 16, 2024 End: March 16, 2024 Dr. Roddy Quinones MD Attending Provider Active Start: March 16, 2024 End: March 16, 2024 Dr. Roddy Quinones MD Referring Provider Active Start: March 16, 2024 End: March 16, 2024 Team Status: Inactive Member Role Status Dates Dr. Chente Conn MD Primary Care Provider Active Start: April 03, 2024 End: April 21, 2024 Dr. Chente Conn MD Attending Provider Active Start: April 03, 2024 End: April 21, 2024 Dr. Chente Conn MD Referring Provider Active Start: April 03, 2024 End: April 21, 2024 Team Status: Inactive Member Role Status Dates Chente ODOM MD Referring Provider Active Start: April 04, 2024 End: April 04, 2024 Amber Dior PLATEMAKER-C Attending Provider Active Start: April 04, 2024 End: April 04, 2024 Dr. Chente Conn MD Primary Care Provider Active Start: April 04, 2024 End: April 04, 2024 Team Status: Inactive Member Role Status Dates Dr. Chente Conn MD Primary Care Provider Active Start: April 25, 2024 End: April 25, 2024 Dr. Chente Conn MD Attending Provider Active Start: April 25, 2024 End: April 25, 2024 Dr. Chente Conn MD Referring Provider Active Start: April 25, 2024 End: April 25, 2024 Team Status: Active Member Role Status Dates Dr. Chente Conn MD Primary Care Provider Active Start: May 01, 2024 Dr. Chente Conn MD Attending Provider Active Start: May 01, 2024 Dr. Chente Conn MD Referring Provider Active Start: May 01, 2024 Team Status: Inactive Member Role Status Dates Dr. Chente Conn MD Primary Care Provider Active Start: May 09, 2024 End: May 09, 2024 Valarie Kee PLATEMAKER, PLATEMAKER-C Attending Provider Active Start: May 09, 2024 End: May 09, 2024 Valarie Kee PLATEMAKER, PLATEMAKER-C Referring Provider Active Start: May 09, 2024 End: May 09, 2024 Team Status: Inactive Member Role Status Dates Dr. Chente Conn MD Primary Care Provider Active Start: May 01, 2024 End: May 22, 2024 Dr. Chente Conn MD Attending Provider Active Start: May 01, 2024 End: May 22, 2024 Dr. Chente Conn MD Referring Provider Active Start: May 01, 2024 End: May 22, 2024 Team Status: Inactive Member Role Status Dates Dr. Chente Conn MD Primary Care Provider Active Start: May 29, 2024 End: June 21, 2024 Dr. Chente Conn MD Attending Provider Active Start: May 29, 2024 End: June 21, 2024 Dr. Chente Conn MD Referring Provider Active Start: May 29, 2024 End: June 21, 2024 Team Status: Inactive Member Role Status Dates Dr. Chente Conn MD Primary Care Provider Active Start: June 15, 2024 End: June 15, 2024 Dr. Chente Conn MD Referring Provider Active Start: June 15, 2024 End: June 15, 2024 Dr. Matteo Posadas MD Attending Provider Active Sta rt: June 15, 2024 End: June 15, 2024 Team Status: Inactive Member Role Status Dates Dr. Chente Conn MD Primary Care Provider Active Start: June 26, 2024 End: June 26, 2024 Dr. Chente Conn MD Attending Provider Active Start: June 26, 2024 End: June 26, 2024 Dr. Chente Conn MD Referring Provider Active Start: June 26, 2024 End: June 26, 2024 Dr. Matteo Posadas MD Other Provider Active Start: June 26, 2024 End: June 26, 2024 Team Status: Inactive Member Role Status Dates Dr. Chente Conn MD Primary Care Provider Active Start: July 18, 2024 End: July 18, 2024 Dr. Matteo Posadas MD Attending Provider Active Sta rt: July 18, 2024 End: July 18, 2024 Dr. Matteo Posadas MD Referring Provider Active Sta rt: July 18, 2024 End: July 18, 2024 Team Status: Active Member Role Status Dates Dr. Chente Conn MD Primary Care Provider Active Start: July 25, 2024 Dr. Chente Conn MD Attending Provider Active Start: July 25, 2024 Dr. Chente Conn MD Referring Provider Active Start: July 25, 2024 Team Status: Inactive Member Role Status Dates Dr. Chente Conn MD Primary Care Provider Active Start: July 26, 2024 End: July 26, 2024 Dr. Roddy Quinones MD Attending Provider Active Start: July 26, 2024 End: July 26, 2024 Dr. Roddy Quinones MD Referring Provider Active Start: July 26, 2024 End: July 26, 2024 Team Status: Active Member Role/Relationship Status Dates Dr. Chente Conn MD Primary Care Provider Active Team Status: Inactive Member Role/Relationship Status Dates Dr. Chente Conn MD Primary Care Provider Active Start: April 25, 2024 End: April 25, 2024 Dr. Chente Conn MD Attending Provider Active Start: April 25, 2024 End: April 25, 2024 Dr. Chente Conn MD Referring Provider Active Start: April 25, 2024 End: April 25, 2024 Team Status: Inactive Member Role/Relationship Status Dates Dr. Chente Conn MD Primary Care Provider Active Start: May 01, 2024 End: May 22, 2024 Dr. Chente Conn MD Attending Provider Active Start: May 01, 2024 End: May 22, 2024 Dr. Chente Conn MD Referring Provider Active Start: May 01, 2024 End: May 22, 2024 Team Status: Inactive Member Role/Relationship Status Dates Dr. Chente Conn MD Primary Care Provider Active Start: May 09, 2024 End: May 09, 2024 Valarie Kee PLATEMAKER, PLATEMAKER-C Attending Provider Active Start: May 09, 2024 End: May 09, 2024 Valarie Kee PLATEMAKER, PLATEMAKER-C Referring Provider Active Start: May 09, 2024 End: May 09, 2024 Team Status: Inactive Member Role/Relationship Status Dates Dr. Chente Conn MD Primary Care Provider Active Start: May 29, 2024 End: June 21, 2024 Dr. Chente Conn MD Attending Provider Active Start: May 29, 2024 End: June 21, 2024 Dr. Chente Conn MD Referring Provider Active Start: May 29, 2024 End: June 21, 2024 Team Status: Inactive Member Role/Relationship Status Dates Dr. Chente Conn MD Primary Care Provider Active Start: June 15, 2024 End: June 15, 2024 Dr. Chente Conn MD Referring Provider Active Start: June 15, 2024 End: June 15, 2024 Dr. Matteo Posadas MD Attending Provider Active Sta rt: June 15, 2024 End: June 15, 2024 Team Status: Inactive Member Role/Relationship Status Dates Dr. Chente Conn MD Primary Care Provider Active Start: June 26, 2024 End: June 26, 2024 Dr. Chente Conn MD Attending Provider Active Start: June 26, 2024 End: June 26, 2024 Dr. Chente Conn MD Referring Provider Active Start: June 26, 2024 End: June 26, 2024 Dr. Matteo Posadas MD Other Provider Active Start: June 26, 2024 End: June 26, 2024 Team Status: Inactive Member Role/Relationship Status Dates Dr. Chente Conn MD Primary Care Provider Active Start: July 18, 2024 End: July 18, 2024 Dr. Matteo Posadas MD Attending Provider Active Sta rt: July 18, 2024 End: July 18, 2024 Dr. Matteo Posadas MD Referring Provider Active Sta rt: July 18, 2024 End: July 18, 2024 Team Status: Inactive Member Role/Relationship Status Dates Dr. Chente Conn MD Primary Care Provider Active Start: July 25, 2024 End: August 21, 2024 Dr. Chente Conn MD Attending Provider Active Start: July 25, 2024 End: August 21, 2024 Dr. Chente Conn MD Referring Provider Active Start: July 25, 2024 End: August 21, 2024 Team Status: Inactive Member Role/Relationship Status Dates Dr. Chente Conn MD Primary Care Provider Active Start: July 26, 2024 End: July 26, 2024 Dr. Roddy Quinones MD Attending Provider Active Start: July 26, 2024 End: July 26, 2024 Dr. Roddy Quinones MD Referring Provider Active Start: July 26, 2024 End: July 26, 2024 Team Status: Inactive Member Role/Relationship Status Dates Dr. Chente Conn MD Primary Care Provider Active Start: May 01, 2024 End: May 22, 2024 Dr. Chente Conn MD Attending Provider Active Start: May 01, 2024 End: May 22, 2024 Dr. Chente Conn MD Referring Provider Active Start: May 01, 2024 End: May 22, 2024 Team Status: Inactive Member Role/Relationship Status Dates Dr. Chente Conn MD Primary Care Provider Active Start: May 09, 2024 End: May 09, 2024 Valarie Kee PLATEMAKER, PLATEMAKER-C Attending Provider Active Start: May 09, 2024 End: May 09, 2024 Valarie Kee PLATEMAKER, PLATEMAKER-C Referring Provider Active Start: May 09, 2024 End: May 09, 2024 Team Status: Inactive Member Role/Relationship Status Dates Dr. Chente Conn MD Primary Care Provider Active Start: May 29, 2024 End: June 21, 2024 Dr. Chente Conn MD Attending Provider Active Start: May 29, 2024 End: June 21, 2024 Dr. Chente Conn MD Referring Provider Active Start: May 29, 2024 End: June 21, 2024 Team Status: Inactive Member Role/Relationship Status Dates Dr. Chente Conn MD Primary Care Provider Active Start: June 15, 2024 End: June 15, 2024 Dr. Chente Conn MD Referring Provider Active Start: June 15, 2024 End: June 15, 2024 Dr. Matteo Posadas MD Attending Provider Active Sta rt: June 15, 2024 End: June 15, 2024 Team Status: Inactive Member Role/Relationship Status Dates Dr. Chente Conn MD Primary Care Provider Active Start: June 26, 2024 End: June 26, 2024 Dr. Chente Conn MD Attending Provider Active Start: June 26, 2024 End: June 26, 2024 Dr. Chente Conn MD Referring Provider Active Start: June 26, 2024 End: June 26, 2024 Dr. Matteo Posadas MD Other Provider Active Start: June 26, 2024 End: June 26, 2024 Team Status: Inactive Member Role/Relationship Status Dates Dr. Chente Conn MD Primary Care Provider Active Start: July 18, 2024 End: July 18, 2024 Dr. Matteo Posadas MD Attending Provider Active Sta rt: July 18, 2024 End: July 18, 2024 Dr. Matteo Posadas MD Referring Provider Active Sta rt: July 18, 2024 End: July 18, 2024 Team Status: Inactive Member Role/Relationship Status Dates Dr. Chente Conn MD Primary Care Provider Active Start: July 25, 2024 End: August 21, 2024 Dr. Chente Conn MD Attending Provider Active Start: July 25, 2024 End: August 21, 2024 Dr. Chente Conn MD Referring Provider Active Start: July 25, 2024 End: August 21, 2024 Team Status: Inactive Member Role/Relationship Status Dates Dr. Chente Conn MD Primary Care Provider Active Start: July 26, 2024 End: July 26, 2024 Dr. Roddy Quinones MD Attending Provider Active Start: July 26, 2024 End: July 26, 2024 Dr. Roddy Quinones MD Referring Provider Active Start: July 26, 2024 End: July 26, 2024 Team Status: Inactive Member Role/Relationship Status Dates Dr. Chente Conn MD Primary Care Provider Active Start: August 22, 2024 End: August 22, 2024 Dr. Chente Conn MD Attending Provider Active Start: August 22, 2024 End: August 22, 2024 Dr. Chente Conn MD Referring Provider Active Start: August 22, 2024 End: August 22, 2024 Source Comments (unrecognize d section and content) In the event this informatio n is protected by the Federal Confidentiality of Alcohol and Drug Abuse Patient Records regulations: The Federal rules restrict any use of the information to criminally investigate or prosecute any alcohol or drug abuse patient.[facility] the event this information is protected by the Federal Confidentiality of Alcohol and Drug Abuse Patient Records regulations: The Federal rules restrict any use of the information to criminally investigate or prosecute any alcohol or drug abuse patient.[facility] the event this information is protected by the Federal Confidentiality of Alcohol and Drug Abuse Patient Records regulations: The Federal rules restrict any use of the information to criminally investigate or prosecute any alcohol or drug abuse patient.[facility] the event this information is protected by the Federal Confidentiality of Alcohol and Drug Abuse Patient Records regulations: The Federal rules restrict any use of the information to criminally investigate or prosecute any alcohol or drug abuse patient.[facility] the event this information is protected by the Federal Confidentiality of Alcohol and Drug Abuse Patient Records regulations: The Federal rules restrict any use of the information to criminally investigate or prosecute any alcohol or drug abuse patient.[facility] Reason for Visit (unrecogniz ed section and content) Reason Comments Patient Update Patient Question Reason Comments Patient Update Reason Comments Follow Up Reason Comments Stoma Consult (unrecognized sect ion and content) No Status Records FoundNo Status Records Found INFORMATION SOURCE (unrecogn ized section and content) DATE CREATED AUTHOR 07/02/[address] [facility] DATE CREATED AUTHOR 'S LAN LOVE 09/01/2024 [facility] FOR RECORDS PERTAINING TO PATIENTS WHO ARE [...] BE BASED ON THE PRIMARY CLINICAL RECORDS. [facility] [employer] [facility]. provides no warranty or guarantee of the accuracy or completeness of information in this document.
--- OUTSIDE RECORDS SUMMARY | 2024-09-03 14:07 | XMS RPT_ITS | CCD ---
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 Chente Conn Primary Care Provider Dr. Chente Conn Referring Provider Vidhya AIRBRUSH ARTIST, AIRBRUSH ARTIST-C Valarie Attending Provider Dr. Maury Waite Attending Provider Dr. Chente Conn Primary Care Provider Dr. Chente Conn Referring Provider Dr. Jacek Monsalve Attending Provider Dr. Chente Conn Primary Care Provider Dr. Chente Conn Referring Provider Dr. Maury Waite Attending Provider MD Dayo Jo Emergency Provider [phone] Cindy Alexandre Admit Provider Dr. Cindy Alexandre Other Provider Dr. Jacek Monsalve Other Provider Dr. Yovanny Moreira Attending Provider Dr. Yovanny Moreira Other Provider Dr. Armando Plaza Other Provider Dr. John Tolentino Other Provider Unavailab pio Kee AIRBRUSH ARTIST, AIRBRUSH ARTIST-C Valarie Other Provider Dr. Lucia Dillard Other [...] Provider Dr. Chente Conn Referring Provider Vidhya AIRBRUSH ARTIST, AIRBRUSH ARTIST-C Valarie Attending Provider Dr. Chente Conn Primary Care Provider Dr. Maury Waite Attending Provider Dr. Cindy Alexandre Referring Provider MD Dayo Jo Emergency Provider Dr. Cindy Alexandre Admit Provider Dr. Cindy Alexandre Other Provider Dr. Jacek Monsalve Other Provider Dr. Yovanny Moreira Attending Provider Dr. Yovanny Moreira Other Provider Dr. Armando Plaza Other Provider Dr. John Tolentino Other Provider Unavailab pio Kee AIRBRUSH ARTIST, AIRBRUSH ARTIST-C Valarie Other Provider Dr. Lucia Dillard Other Provider Dr. Fiona Echavarria Other Provider Dr. Lucia Dillard Attending Provider Dr. Jacek Monsalve Attending Provider Dr. Luis Simon Other Provider Dr. Roberto Hathaway Other Provider Dr. Luis Simon Attending Provider [phone] Dr. Barry Young Referring Provider Dr. Barry Young Attending Provider Dr. Barry Young Other Provider Dr. Chente Conn Referring Provider Vidhya AIRBRUSH ARTIST, AIRBRUSH ARTIST-C Valarie Attending Provider Dr. Chente Conn Primary Care Provider Dr. Maury Waite Attending Provider Dr. Cindy Alexandre Referring Provider MD Dayo Jo Emergency Provider Dr. Cindy Alexandre Admit Provider Dr. Cindy Alexandre Other Provider Dr. Jacek Monsalve Other Provider Dr. Yovanny Moreira Attending Provider Dr. Yovanny Moreira Other Provider Dr. Armando Plaza Other Provider Dr. John Tolentino Other Provider Unavailab pio Kee AIRBRUSH ARTIST, AIRBRUSH ARTIST-C Valarie Other Provider Dr. Lucia Dillard Other Provider Dr. Fiona Echavarria Other Provider Dr. Lucia Dillard Attending Provider Dr. Jacek Monsalve Attending Provider Dr. Luis Simon Other Provider Dr. Roberto Hathaway Other Provider Dr. Luis Simon Attending Provider Dr. Barry Young Referring Provider Dr. Barry Young Attending Provider Dr. Barry Young Other Provider Dr. Chente Conn Referring Provider Vidhya AIRBRUSH ARTIST, AIRBRUSH ARTIST-C Valarie Attending Provider Dr. Dario De La Torre Emergency Provider [facility], Dr. Jaimes Admit Provider [place], Dr. Jaimes Attending Provider Chente Perkins MD Primary Care Provider Dr. Chente Conn Primary Care Provider Dr. Dario De La Torre Emergency Provider [facility], Dr. Jaimes Admit Provider Dr. Fiona Echavarria Attending Provider Dr. Fiona Echavarria Other Provider Dr. Jacek Monsalve Other Provider Dr. Yovanny Moreira Other Provider Dr. Armando Plaza Other Provider Dr. John Tolentino Other Provider Unavailab pio Kee AIRBRUSH ARTIST, AIRBRUSH ARTIST-C Valarie Other Provider Dr. Lucia Dillard Attending Provider Dr. Jacek Monsalve Attending Provider Dr. Lucia Dillard Other Provider Dr. Roberto Hathaway Other Provider Bettie, Dr. Cindy Sharpe Referring Provider Dr. Luis Simon Other Provider [phone] Dr. Luis Simon Attending Provider [phone] Dr. Yovanny Moreira Attending Provider Bettie, Dr. [...] John Tolentino Other Provider Unavailab pio Kee AIRBRUSH ARTIST, AIRBRUSH ARTIST-C Valarie Other Provider Dr. Lucia Dillard Attending Provider Dr. Jacek Monsalve Attending Provider Dr. Lucia Dillard Other Provider Dr. Roberto Hathaway Other Provider [phone] Bettie, Dr. Cindy Sharpe Referring Provider Dr. [...] Admit Provider Dr. Camacho Gonzalez Other Provider [phone] Barry Young Other Provider Dr. Cindy Alexandre Other Provider Dr. Vanessa Roberts Attending Provider Dr. Vanessa Roberts Other Provider Dr. Michael Posadas Other Provider Unavailable Dr. Chente Conn Referring Provider Vidhya AIRBRUSH ARTIST, AIRBRUSH ARTIST-C Valarie Attending Provider Dr. Chente Conn Primary Care Provider Dr. Chente Conn Primary Care Provider Dr. Stefan Gregory Attending Provider Dr. Donte Abebe Referring Provider Dr. Miky Rahman Emergency Provider Dr. Donte Abebe Admit Provider Dr. Donte Abebe Attending Provider Dr. Donte Abebe Other Provider Dr. Chente Conn Referring Provider Vidhya AIRBRUSH ARTIST, AIRBRUSH ARTIST-C Valarie Attending Provider Dr. Siddharth De La Rosa Emergency Provider Dr. Lucia Dillard Admit Provider Dr. Lucia Dillard Attending Provider Dr. Lucia Dillard Other Provider Dr. Krishna Siddiqui Other Provider [phone] Jacek Monsalve Attending Provider Bello, Dr. Read Other Provider Dr. Yovanny Moreira Other Provider Dr. Mckinley Tristan Other Provider [phone] Dr. Cari Cavazos Other Provider Dr. Zackary Castro Other Provider Dr. Gris Hewitt Other Provider Dr. Patrice Langley Other Provider Unavailable Dr. Goran Rose Other Provider Dr. Luis Mohr Other Provider Dr. Vito Bright Other Provider Dr. Luther Huggins Other Provider Dr. Camacho Gonzalez Other Provider Dr. Camacho Gonzalez Attending Provider Dr. Chente Conn Primary Care Provider Dr. Siddharth De La Rosa Emergency Provider Dr. Lucia Dillard Admit Provider Dr. Lucia Dillard Attending Provider Dr. Lucia Dillard Other Provider Dr. Krishna Siddiqui Other Provider Bello, Dr. Read Attending Provider Dr. Jacek Monsalve Other Provider Dr. Yovanny Moreira Other Provider Dr. Mckinley Tristan Other Provider [phone] Cari Cavazos Other Provider Dr. Zackary [...] Provider Dr. Chente Conn Referring Provider Vidhya AIRBRUSH ARTIST, AIRBRUSH ARTIST-C Valarie Attending Provider [phone] Dr. Siddharth De La Rosa Emergency Provider Dr. Lucia Dillard Admit Provider Dr. Lucia Dillard Attending Provider Dr. Lucia Dillard Other Provider Dr. Krishna Siddiqui Other Provider Dr. Jacek Monsalve Attending Provider Dr. Jacek Monsalve Other Provider Dr. Yovanny Moreira Other Provider Dr. Mckinley Tristan Other Provider Dr. Cari Cavazos Other Provider [phone] Dr. Zackary Castro Other Provider Dr. Gris Hewitt Other Provider Dr. Patrice Langley Other Provider Unavailable Dr. Goran Rose Other Provider Dr. Luis Mohr Other Provider Dr. Vito Bright Other Provider Dr. Luther Huggins Other Provider Dr. Camacho Gonzalez Referring Provider Dr. Camacho Gonzalez Other Provider Dr. Camacho Gonzalez Attending Provider Dr. Chente Conn MD Primary Care Provider [phone] Senia VARGAS, Dr. Chente De La Paz [...] Chente Conn MD Referring Provider Unavailable Ovi AIRBRUSH ARTIST-C, Abmer Cooley Attending Provider Vidhya AIRBRUSH ARTIST-CValarie Attending Provider Vidhya AIRBRUSH ARTIST-CValarie Referring Provider Dr. Chente Conn MD Primary Care Provider Dr. Chente Conn MD Attending Provider Dr. Chente Conn MD Referring Provider [phone] King SAM, Dr. Felipe Attending Provider King SAM, Dr. Felipe Other Provider Dr. Chente Conn MD Primary Care Provider [phone] Dr. Chente Conn MD Attending Provider Senia VARGAS, Dr. Chente De La Paz Referring Provider [phone] King SAM, Dr. Felipe Referring Provider [phone] Senia VARGAS, Dr. Chente De La Paz [...] Dr. Chente De La Paz Attending Provider [phone] Senia VARGAS, Dr. Chente De La Paz Referring Provider Chente Conn Primary Care Unavailable Matteo Posadas Attending Unavailable Matteo Posadas Referring Unavailable Chente Conn Primary Care Unavailable Vidhya AIRBRUSH ARTIST, Valarie Attending Unavailable Vidhya AIRBRUSH ARTIST, Valarie Referring Unavailable Chente Conn Primary Care [...] Mckinley Tristan Consulting Unavailable Cari Cavazos Consulting UnavailZackayr Roman Consulting Unavailable Jace Shipley Consulting Unavailable [...] Attending Unavailable SchChente cooper Referring Unavailable Schinally, Hcente E Primary Care Unavailable Roddy Quinones Attending Unavailable Roddy Quinones Referring Unavailable Schinally, Chente E Primary Care Unavailable SchChente cooper Attending Unavailable Schinally, Chente De La Paz Referring Unavailable Schinally, Chente E Primary Care Unavailable Racquel Moss Attending Unavailable SchChente cooper Attending Unavailable Nathanael, Torey Primary Care Unavailable SchChente cooepr Referring Unavailable Torey Huffman Attending Unavailable Nathanael, Torey Primary Care Unavailable Torey Huffman Referring Unavailable Schinally, Chente De La Paz Primary Care Unavailable SchChnete cooper Referring Unavailable SchChente cooper Attending Unavailable [...] Hewitt Consulting Unavailable Patrice Langley Consulting Unavailable Sammy, Jovi Consulting Unavailable Goran [...] Referring Unavailable Amber Dior Attending Unavailable Vidhya AIRBRUSH ARTIST, Valarie Attending Unavailable Nathanael, Torey Primary Care Unavailable Schinner, Chente E Referring Unavailable Stefan Gregory Attending Unavailable Nathanael, Torey Primary Care Unavailable Torey Huffman Referring Unavailable Schinner, Chente E Referring Unavailable Schinner, Chetne E Primary Care Unavailable Schinner, Chente E [...] acetaminophen / codeine drug allergy 07-04-19 15 [facility] Work Phone: (8 sources) cisapride drug allergy 07-04-19 15 [facility] Work Phone: (8 sources) codeine drug allergy 07-04-19 15 [facility] Work Phone: (20 sources) Dust; Translations: [DUST] allergy to substance 07-04-19 15 Other [facility] Work Phone: (8 sources) metroNIDAZOLE drug allergy 07-04-19 15 [facility] Work Phone: (14 sources) morphine; Translations: [ASTRAMORPH] allergy to substance 07-04-19 15 hallucinations [facility] Work Phone: (20 sources) morphine; Translations: [MORPHINE] drug allergy 06-23-19 Other: See Comments [facility] Work Phone: (14 sources) vancomycin; Translations: [VANCOMYCIN HCL] drug allergy 01-08-20 16 [facility] Work Phone: (20 sources) Cisapride; Translations: [cisapride monohydrate] Drug Allergy 05-20-[address] [facility] (20 sources) Codeine; Translations: [CODEINE] Drug Allergy 06-23-19 Other: See Comments [facility] (20 sources) metroNIDAZOLE Drug Allergy 05-20-[address] [facility] (20 sources) house dust allergenic extract Drug Allergy 12-01-19 NEEDS FOLLOW-UP [facility] (6 sources) Cisapride; Translations: [PROPULSID] Drug Allergy 02-08-20 12 [facility] (6 sources) metroNIDAZOLE; Translations: [METRONIDAZOLE HCL] Drug Allergy 05-09-19 15 [facility] Work Phone: (20 sources) Chlorhexidine Drug Allergy 06-23-[address] [facility] (1 source) Chlorhexidine Drug Allergy 06-16-19 25 [facility] (1 source) Codeine Drug Allergy 06-16-19 25 [facility] (1 source) house dust allergenic extract Drug Allergy 06-16-19 25 [facility] (1 source) metroNIDAZOLE Drug Allergy 06-16-19 25 [facility] Medications Current Medications Medication Drug Class(es) [...] October 23, 2022 11:00pm Start: 10-24-2022 [facility] xide-Simeth Active 5 ML PO 0000,0600,1200,1800 October 24, 2022 12:00am aluminum hydroxide 40 mg/ml / magnesium hydroxide 40 mg/ml / simethicone 4 mg/ml oral suspension (20 sources) Start: 10-24-2022 [facility] xide-Simeth 200-200-20 mg/5 mL suspension Active 5 mL PO 0000,0600,1200,1800 as needed for ANTACID October 24, 2022 12:00am Start: 10-24-2022 [facility] xide-Simeth Active 5 ML PO 0000,0600,1200,1800 October 24, 2022 12:00am Start: 01-11-2021 [facility] xide-Simeth Active 20 ML feeding tube 4 [...] 73 4.1 mcg intrath daily BACLOFEN SOLN [id number] Luann Elliott calcium carbonate 250 mg/ml oral [...] Cough Assist A ctive 1 NMA .Route .[facility] December 25, 2018 2:40pm assist in clearing secretions Inspiratory and Expiratory times of 20-40 seconds with a 1-2 second pause. Start: 12-25-2018 Cough Assist A ctive 1 NMA .Route .[facility] December 25, 2018 2:40pm Inspiratory and Expiratory times of 20-40 seconds with a 1-2 second pause. Start: 12-25-2018 Cough Assist A ctive 1 DOSE .Route .[facility] December 25, 2018 1:40pm Inspiratory and Expiratory times of 20-40 seconds with a 1-2 second pause. Start: 12-25-2018 Cough Assist A ctive 1 DOSE .Route .[facility] December 25, 2018 2:40pm Inspiratory and Expiratory [...] 20-40 seconds with a 1-2 second pause. [id number] 0.3 ml EPINEPHrine 1 mg/ml auto-injector (6 [...] by mouth three times daily METOCLOPRAMIDE HCL [id number] Maury Waite MD Start: 12-20-2015 End: 09-16-2018 [...] 3 September 30, 2023 11:26am ASTHMA nystatin [id number] unt/ml oral suspension (7 sources) Polyene Antifungal [...] TABS 60 mg. GT twice daily PHENOBARBITAL [id number] Luann Elliott Comment on above: Inject intravenously [...] tablet by mouth twice daily AMOXICILLIN-POT CLAVULANATE [id number] Maury Waite MD Start: 07-21-2016 End: 07-29-2016 [...] GTUBE every 8 hours; docusate / sennosides, detention (14 sources) Start: 08-28-2016 SENNA-DOCUSATE SODIUM TABS as direceted as needed SENNOSIDES-DOCUSATE SODIUM TABS [id number] Maury Waite MD SENNA-DOCUSATE S ODIUM TABS SENNOSIDES-DOCUSATE SODIUM TABS [id number] Rosa Taylor LPN doxazosin 2 mg oral [...] 4; 1 cap by mouth daily LACTOBACILLUS [id number] Luann Elliott lactobacillus acidophilus [id number] unt oral capsule (20 sources) Start: 09-20-19 [...] End: 01-13-2013 Lactose-Reduced Food (Osmoli te 1.2 Benyn) 1,000 ML Liquid Discontinued 1000 mL PO [...] mouth daily as needed MAGNESIUM HYDROXIDE SUSP [id number] Maury Waite MD Start: 12-20-2015 End: 12-27-2018 [...] ml by mouth daily MAGNESIUM HYDROXIDE SUSP [id number] Luann Elliott Comment on above: Take by mouth as nee ded. 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 Fax to [phone] routine midline care plecanatide 3 mg oral tablet (20 sources) Start: 04-25-2020 End: 04-05-2024 Plecanatide 3 mg tablet Discontinued 3 mg GT 0830 November 27, 2020 3:23pm April 05, 2024 5:06pm BOWELS polyethylene glycol 3350 48048 mg powder for oral solution (20 sources) [...] 17g m q d POLYETHYLENE GLYCOL 3350 [id number] Rosa Taylor [employer] potassium chloride 1.33 meq/ml oral solution (20 [...] on above: 15 mEq by PEG/JET ro squaxin once daily. rifAXIMin 550 mg oral tablet [...] 2015 12:00am December 27, 2018 10:53am sennosides, detention 1.76 mg/ml oral solution (5 sources) Start: [...] GT daily as needed DOCUSATE SODIUM LIQD [id number] Maury Waite MD DOCUSATE SODIUM LIQD 200 mg GT daily DOCUSATE SODIUM LIQD [id number] Luann Elliott simethicone 66.7 mg/ml oral suspension [...] 24, 2023 12:00am September 30, 2023 12:00am [place] 9th, 2024 12:04am vancomycin 125 mg oral [...] THEREAFTER End: 01-08-2016 VANCOMYCIN+SYRSPEND SF PH4 S [facility] 125mg q 6 hrs x 10 days VANCOMYCIN HCL SUSP [id number] Rosa Taylor [employer] Problems Active Problems Problem Classification Problem Date [...] (5 sources) Drug therapy finding; Translations: [Other correction (current) drug therapy] Onset: 5 02-17-2021 Episodic [...] spec) [#/Vol] 1.17 10*3/uL 0.83-4.51 [facility] Absolute neutrophil countOrd ered By: Chente Conn on 08-22-2024 Neutrophils (Bld) [#/Vol] 2.1 10*3/uL 2.0-7.7 [facility] Anion gap in Serum or Plasma Ordered By: Chente Conn on 08-22-2024 Anion gap [Moles/Vol] 9 mmol/L 5-15 [facility] Automated lymphocyte count a s percentage of total leukocytesOrdered By: Chente Conn on 08-22-2024 Lymphocytes/100 WBC Auto (Unsp spec) 31.3 % 19-41 [facility] BUN/creatinine ratioOrdered By: Chente Conn on 08-22-2024 Urea nitrogen/Creatinine [Mass ratio] 46.4 mg/mg High 10-20 [facility] Basophil percentageOrdered B y: Chente Conn on 08-22-2024 Basophils/100 WBC (Bld) 0.0 % 0-1 [facility] Carbon dioxide, total [Moles /volume] in Central venous bloodOrdered By: Chente Conn on 08-22-2024 CO2 [Moles/Vol] 28.9 mmol/L 21.0-32.0 [facility] Chloride assayOrdered By: Areli Conn on 08-22-2024 Chloride [Moles/Vol] 99 mmol/L 98-108 [facility] Eosinophil percentageOrdered By: Chente Conn on 08-22-2024 Eosinophils/100 WBC (Bld) 4.5 % 0-5 [facility] Erythrocyte distribution wid th ratioOrdered By: Chente Conn on 08-22-2024 Erythrocyte distribution width (RBC) [Ratio] 16.3 % High 11.6-14.6 [facility] Erythrocyte distribution wid th standard deviationOrdered By: Chente Conn on 08-22-2024 Erythrocyte distribution width (RBC) [Ratio] 49.5 fl High 35.1-43.9 [facility] Glomerular filtration rate ( GFR) estimation/1.73 sq m using serum, plasma, or whole bOrdered By: Chente Conn on 08-22-2024 GFR/1.73 sq M.predicted among non-blacks MDRD (S/P/Bld) [Vol rate/Area] 167 mL/min/{1.73_m2} >60 [facility] Comment on above: mL/min/1.73m2 CKD-EP I Creatinine Equation (2020) Hematocrit Auto (Bld) [Volum e fraction]Ordered By: Chente Conn on 08-22-2024 Hematocrit (Bld) [Volume fraction] 31.8 % Low 40-54 [facility] Hemoglobin measurementOrdere d By: Chente Conn on 08-22-2024 Hemoglobin (Bld) [Mass/Vol] 10.1 g/dL Low 13.0-16.5 [facility] Immature granulocytes/100 WB C Auto (Bld)Ordered By: Chente Conn on 08-22-2024 Immature granulocytes/100 WBC (Bld) 0.500 % 0.0-0.9 [facility] Comment on above: IG% - Immature Granu locytes (promyelocytes, myelocytes and metamyelocytes) > 1% indicates that a LEFT SHIFT is Present. MCV (mean corpuscular volume ) determinationOrdered By: Chente Conn on 08-22-2024 MCV (RBC) [Entitic vol] 85.3 fL 80-94 [facility] Mean corpuscular hemoglobin (MCH) determinationOrdered By: Chente Conn on 08-22-2024 MCH (RBC) [Entitic mass] 27.1 pg 27.0-32.0 [facility] Mean corpuscular hemoglobin concentration (MCHC) determinationOrdered By: Chente Conn on 08-22-2024 MCHC (RBC) [Mass/Vol] 31.8 g/dL Low 32-36 [facility] Mean platelet volume determi nationOrdered By: Chente Conn on 08-22-2024 Platelet mean volume (Bld) [Entitic vol] 10.8 fL 6.2-12.0 [facility] Monocyte percentageOrdered B y: Chente Conn on 08-22-2024 Monocytes/100 WBC (Bld) 8.8 % 0-10 [facility] Neutrophil percentageOrdered By: Chente Conn on 08-22-2024 Neutrophils/100 WBC (Bld) 54.9 % 47-70 [facility] Nucleated red blood cell per centageOrdered By: Chente Conn on 08-22-2024 Nucleated RBC/100 WBC (Bld) [Ratio] 0 % 0-5 [facility] Platelet countOrdered By: Areli Conn on 08-22-2024 Platelets (Bld) [#/Vol] 118 10*3/uL Low 150-450 [facility] Potassium measurement (mass/ volume)Ordered By: Chente Conn on 08-22-2024 Potassium (Unsp spec) [Mass/Vol] 4.1 mmol/L 3.3-5.1 [facility] RBC Auto (Bld) [#/Vol]Ordere d By: Chente Conn on 08-22-2024 RBC (Bld) [#/Vol] 3.73 10*6/uL Low 4.6-6.2 [facility] Serum creatinine measurement (mass/volume)Ordered By: Chente Conn on 08-22-2024 Creatinine [Mass/Vol] 0.22 mg/dL Low 0.70-1.20 [facility] Serum glucose measurement (m ass/volume)Ordered By: Chente Conn on 08-22-2024 Glucose [Mass/Vol] 90 mg/dL 70-99 [facility] Serum or plasma calcium jacinta urement (mass/volume)Ordered By: Chente Conn on 08-22-2024 Calcium [Mass/Vol] 8.7 mg/dL 7.6-11.0 [facility] Serum or plasma urea nitroge n measurement (mass/volume)Ordered By: Chente Conn on 08-22-2024 Urea nitrogen [Mass/Vol] 10 mg/dL 4-19 [facility] Sodium levelOrdered By: Chente Conn on 08-22-2024 Sodium [Moles/Vol] 137 mmol/L 133-145 [facility] White blood cell (WBC) count Ordered By: Chente Conn on 08-22-2024 WBC (Bld) [#/Vol] 3.7 10*3/uL Low 4.4-11.0 [facility] Laboratory - Chemistry and C hemistry - challengeOrdered By: Matteo Posadas on 07-27-2024 Testosterone [Mass/Vol] 15.60 ng/dL Low 300-890 [facility] Absolute lymphocyte countOrd ered By: Chente Conn on 07-25-2024 Lymphocytes Auto (Unsp spec) [#/Vol] 2.03 10*3/uL 0.83-4.51 [facility] Absolute neutrophil countOrd ered By: Chente Conn on 07-25-2024 Neutrophils (Bld) [#/Vol] 3.4 10*3/uL 2.0-7.7 [facility] Anion gap in Serum or Plasma Ordered By: Chente Conn on 07-25-2024 Anion gap [Moles/Vol] 14 mmol/L 5-15 [facility] Automated lymphocyte count a s percentage of total leukocytesOrdered By: Chente Conn on 07-25-2024 Lymphocytes/100 WBC Auto (Unsp spec) 31.8 % 19-41 [facility] BUN/creatinine ratioOrdered By: Chente Conn on 07-25-2024 Urea nitrogen/Creatinine [Mass ratio] 24.1 mg/mg High 10-20 [facility] Basophil percentageOrdered B y: Chente Conn on 07-25-2024 Basophils/100 WBC (Bld) 0.2 % 0-1 [facility] Carbon dioxide, total [Moles /volume] in Central venous bloodOrdered By: Chente Conn on 07-25-2024 CO2 [Moles/Vol] 25.0 mmol/L 21.0-32.0 [facility] Chloride assayOrdered By: Areli Conn on 07-25-2024 Chloride [Moles/Vol] 99 mmol/L 98-108 [facility] Eosinophil percentageOrdered By: Chente Conn on 07-25-2024 Eosinophils/100 WBC (Bld) 3.6 % 0-5 [facility] Erythrocyte distribution wid th ratioOrdered By: Chente Conn on 07-25-2024 Erythrocyte distribution width (RBC) [Ratio] 15.6 % High 11.6-14.6 [facility] Erythrocyte distribution wid th standard deviationOrdered By: Chente Conn on 07-25-2024 Erythrocyte distribution width (RBC) [Ratio] 47.2 fl High 35.1-43.9 [facility] Glomerular filtration rate ( GFR) estimation/1.73 sq m using serum, plasma, or whole bOrdered By: Chente Conn on 07-25-2024 GFR/1.73 sq M.predicted among non-blacks MDRD (S/P/Bld) [Vol rate/Area] 148 mL/min/{1.73_m2} >60 [facility] Comment on above: mL/min/1.73m2 CKD-EP I Creatinine Equation (2020) Hematocrit Auto (Bld) [Volum e fraction]Ordered By: Chente Conn on 07-25-2024 Hematocrit (Bld) [Volume fraction] 30.1 % Low 40-54 [facility] Hemoglobin measurementOrdere d By: Chente Conn on 07-25-2024 Hemoglobin (Bld) [Mass/Vol] 9.8 g/dL Low 13.0-16.5 [facility] Immature granulocytes/100 WB C Auto (Bld)Ordered By: Chente Conn on 07-25-2024 Immature granulocytes/100 WBC (Bld) 0.300 % 0.0-0.9 [facility] Comment on above: IG% - Immature Granu locytes (promyelocytes, myelocytes and metamyelocytes) > 1% indicates that a LEFT SHIFT is Present. MCV (mean corpuscular volume ) determinationOrdered By: Chente Conn on 07-25-2024 MCV (RBC) [Entitic vol] 84.1 fL 80-94 [facility] Mean corpuscular hemoglobin (MCH) determinationOrdered By: Chente Conn on 07-25-2024 MCH (RBC) [Entitic mass] 27.4 pg 27.0-32.0 [facility] Mean corpuscular hemoglobin concentration (MCHC) determinationOrdered By: Chente Conn on 07-25-2024 MCHC (RBC) [Mass/Vol] 32.6 g/dL 32-36 [facility] Mean platelet volume determi nationOrdered By: Chente Conn on 07-25-2024 Platelet mean volume (Bld) [Entitic vol] 10.2 fL 6.2-12.0 [facility] Monocyte percentageOrdered B y: Chente Conn on 07-25-2024 Monocytes/100 WBC (Bld) 11.6 % High 0-10 [facility] Neutrophil percentageOrdered By: Chente Conn on 07-25-2024 Neutrophils/100 WBC (Bld) 52.5 % 47-70 [facility] Nucleated red blood cell per centageOrdered By: Chente Conn on 07-25-2024 Nucleated RBC/100 WBC (Bld) [Ratio] 0 % 0-5 [facility] Platelet countOrdered By: Areli Conn on 07-25-2024 Platelets (Bld) [#/Vol] 166 10*3/uL 150-450 [facility] Potassium measurement (mass/ volume)Ordered By: Chente Conn on 07-25-2024 Potassium (Unsp spec) [Mass/Vol] 3.7 mmol/L 3.3-5.1 [facility] RBC Auto (Bld) [#/Vol]Ordere d By: Chente Conn on 07-25-2024 RBC (Bld) [#/Vol] 3.58 10*6/uL Low 4.6-6.2 [facility] Serum creatinine measurement (mass/volume)Ordered By: Chente Conn on 07-25-2024 Creatinine [Mass/Vol] 0.33 mg/dL Low 0.70-1.20 [facility] Serum glucose measurement (m ass/volume)Ordered By: Chente Conn on 07-25-2024 Glucose [Mass/Vol] 113 mg/dL High 70-99 [facility] Serum or plasma calcium jacinta urement (mass/volume)Ordered By: Chente Conn on 07-25-2024 Calcium [Mass/Vol] 8.8 mg/dL 7.6-11.0 [facility] Serum or plasma urea nitroge n measurement (mass/volume)Ordered By: Chente Conn on 07-25-2024 Urea nitrogen [Mass/Vol] 8 mg/dL 4-19 [facility] Sodium levelOrdered By: Chente Conn on 07-25-2024 Sodium [Moles/Vol] 137 mmol/L 133-145 [facility] White blood cell (WBC) count Ordered By: Chente Conn on 07-25-2024 WBC (Bld) [#/Vol] 6.4 10*3/uL 4.4-11.0 [facility] Free testosterone percentage Ordered By: Matteo Posadas on 07-18-2024 Testosterone Free/Testosterone.total [Mass fraction] 5.01 % High 1.50-4.20 [facility] Insulin-like growth factor ( IGF) measurementOrdered By: Matteo Posadas on 07-18-2024 Insulin-like growth factor [Moles/Vol] 109 ng/mL 84-270 [facility] Comment on above: Performed at: [facility] [employer] [id number] Director: Berry Gonzalez PhD, Phone: [phone] at: [facility] [id number] Director: Nicholas Ryan MD, Phone: [phone] Serum or plasma free testost erone measurement (mass/volume)Ordered By: Matteo Posadas on 07-18-2024 Testosterone Free [Mass/Vol] 0.50 ng/dL Low 5.00-21.00 [facility] Testosterone, totalOrdered B y: Matteo Posadas on 07-18-2024 Testosterone [Mass/Vol] 10 ng/dL Low 264-916 [facility] Comment on above: Adult male reference interval is based on a population ofhealthy nonobese males (BMI <30) between 19 and 39 yearsold. Marlen et.al. JCEM 2017,102;3786-1877. PMID:[id number]. Absolute lymphocyte countOrd ered By: Chente Conn on 06-26-2024 Lymphocytes Auto (Unsp spec) [#/Vol] 2.13 10*3/uL 0.83-4.51 [facility] Absolute neutrophil countOrd ered By: Chente Conn on 06-26-2024 Neutrophils (Bld) [#/Vol] 2.7 10*3/uL 2.0-7.7 [facility] Anion gap in Serum or Plasma Ordered By: Chente Conn on 06-26-2024 Anion gap [Moles/Vol] 10 mmol/L 5-15 [facility] Automated lymphocyte count a s percentage of total leukocytesOrdered By: Chente Conn on 06-26-2024 Lymphocytes/100 WBC Auto (Unsp spec) 36.8 % 19-41 [facility] BUN/creatinine ratioOrdered By: Chente Conn on 06-26-2024 Urea nitrogen/Creatinine [Mass ratio] 40.8 mg/mg High 10-20 [facility] Basophil percentageOrdered B y: Chente Conn on 06-26-2024 Basophils/100 WBC (Bld) 0.3 % 0-1 [facility] Bilirubin, totalOrdered By: Chente Conn on 06-26-2024 Bilirubin [Mass/Vol] 0.16 mg/dL 0.00-1.30 [facility] Carbon dioxide, total [Moles /volume] in Central venous bloodOrdered By: Chente Conn on 06-26-2024 CO2 [Moles/Vol] 27.6 mmol/L 21.0-32.0 [facility] Chloride assayOrdered By: Areli Conn on 06-26-2024 Chloride [Moles/Vol] 98 mmol/L 98-108 [facility] Eosinophil percentageOrdered By: Chente Conn on 06-26-2024 Eosinophils/100 WBC (Bld) 6.6 % High 0-5 [facility] Erythrocyte distribution wid th ratioOrdered By: Chente Conn on 06-26-2024 Erythrocyte distribution width (RBC) [Ratio] 15.4 % High 11.6-14.6 [facility] Erythrocyte distribution wid th standard deviationOrdered By: Chente Cnon on 06-26-2024 Erythrocyte distribution width (RBC) [Ratio] 46.5 fl High 35.1-43.9 [facility] Glomerular filtration rate ( GFR) estimation/1.73 sq m using serum, plasma, or whole bOrdered By: Chente Conn on 06-26-2024 GFR/1.73 sq M.predicted among non-blacks MDRD (S/P/Bld) [Vol rate/Area] 157 mL/min/{1.73_m2} >60 [facility] Comment on above: mL/min/1.73m2 CKD-EP I Creatinine Equation (2020) Hematocrit Auto (Bld) [Volum e fraction]Ordered By: Chente Conn on 06-26-2024 Hematocrit (Bld) [Volume fraction] 32.2 % Low 40-54 [facility] Hemoglobin measurementOrdere d By: Chente Conn on 06-26-2024 Hemoglobin (Bld) [Mass/Vol] 10.3 g/dL Low 13.0-16.5 [facility] Immature granulocytes/100 WB C Auto (Bld)Ordered By: Chente Conn on 06-26-2024 Immature granulocytes/100 WBC (Bld) 0.300 % 0.0-0.9 [facility] Comment on above: IG% - Immature Granu locytes (promyelocytes, myelocytes and metamyelocytes) > 1% indicates that a LEFT SHIFT is Present. Iron measurement (mass/mass) Ordered By: Chente Conn on 06-26-2024 Iron (Unsp spec) [Mass/Mass] 30 ug/dL Low 65-175 [facility] LH ser/plasOrdered By: Matteo Posadas on 06-26-2024 Lutropin Qn 40.9 m[IU]/mL [facility] Comment on above: FEMALE:Follicular: 1 .9-12.5 mIU/mLMidcycle: 8.7-76.3 mIU/mLLuteal: 0.5-16.9 mIU/mLPost Menopause: 15.9-54.0 mIU/mLMALE:20-70 Years: 1.5-9.3 mIU/mL>70 Years: 3.1-34.6 mIU/mL Laboratory - Chemistry and C hemistry - challengeOrdered By: Chente Conn on 06-26-2024 AST [Catalytic activity/Vol] 12 U/L <38 [facility] MCV (mean corpuscular volume ) determinationOrdered By: Chente Conn on 06-26-2024 MCV (RBC) [Entitic vol] 84.3 fL 80-94 [facility] Mean corpuscular hemoglobin (MCH) determinationOrdered By: Chente Conn on 06-26-2024 MCH (RBC) [Entitic mass] 27.0 pg 27.0-32.0 [facility] Mean corpuscular hemoglobin concentration (MCHC) determinationOrdered By: Chente Conn on 06-26-2024 MCHC (RBC) [Mass/Vol] 32.0 g/dL 32-36 [facility] Mean platelet volume determi nationOrdered By: Chente Conn on 06-26-2024 Platelet mean volume (Bld) [Entitic vol] 10.0 fL 6.2-12.0 [facility] Monocyte percentageOrdered B y: Chente Conn on 06-26-2024 Monocytes/100 WBC (Bld) 9.2 % 0-10 [facility] Neutrophil percentageOrdered By: Chente Conn on 06-26-2024 Neutrophils/100 WBC (Bld) 46.8 % Low 47-70 [facility] No Panel InformationOrdered By: Chente Conn on 06-26-2024 Unsaturated Iron Binding Capacity 216 ug/dL Low 228-428 [facility] Nucleated red blood cell per centageOrdered By: Chente Conn on 06-26-2024 Nucleated RBC/100 WBC (Bld) [Ratio] 0 % 0-5 [facility] Platelet countOrdered By: Areli Conn on 06-26-2024 Platelets (Bld) [#/Vol] 204 10*3/uL 150-450 [facility] Potassium measurement (mass/ volume)Ordered By: Chente Conn on 06-26-2024 Potassium (Unsp spec) [Mass/Vol] 3.8 mmol/L 3.3-5.1 [facility] RBC Auto (Bld) [#/Vol]Ordere d By: Chente Conn on 06-26-2024 RBC (Bld) [#/Vol] 3.82 10*6/uL Low 4.6-6.2 [facility] Serum creatinine measurement (mass/volume)Ordered By: Chente Conn on 06-26-2024 Creatinine [Mass/Vol] 0.27 mg/dL Low 0.70-1.20 [facility] Serum globulin measurementOr dered By: Chente Conn on 06-26-2024 Globulin (S) [Mass/Vol] 4.2 g/dL 2.2-4.2 [facility] Serum glucose measurement (m ass/volume)Ordered By: Chente Conn on 06-26-2024 Glucose [Mass/Vol] 80 mg/dL 70-99 [facility] Serum or plasma alanine salas otransferase (ALT) measurementOrdered By: Chente Conn on 06-26-2024 ALT [Catalytic activity/Vol] 8 U/L <47 [facility] Serum or plasma albumin jacinta urement (mass/volume)Ordered By: Chente Conn on 06-26-2024 Albumin [Mass/Vol] 3.6 g/dL 3.5-5.0 [facility] Serum or plasma albumin/glob ulin mass ratioOrdered By: Chente Conn on 06-26-2024 Albumin/Globulin [Mass ratio] 0.8 {ratio} Low 0.9-2.4 [facility] Serum or plasma alkaline robbi sphatase measurementOrdered By: Chente Conn on 06-26-2024 ALP [Catalytic activity/Vol] 166 U/L High 40-129 [facility] Serum or plasma calcium jacinta urement (mass/volume)Ordered By: Chente Conn on 06-26-2024 Calcium [Mass/Vol] 8.9 mg/dL 7.6-11.0 [facility] Serum or plasma ferritin missy surement (mass/volume)Ordered By: Chente Conn on 06-26-2024 Ferritin [Mass/Vol] 39 ng/mL 37-417 [facility] Serum or plasma iron saturat ion measurement (mass fraction)Ordered By: Chente Conn on 06-26-2024 Iron saturation [Mass fraction] 12.2 % 9-55 [facility] Comment on above: Previous reported re sult: 12.0 %Edited by: KARTHIKEYAN on 06/26/24:5966 AMENDED REPORT 06/26/24 3505 IRON SATURATION previously reported as: 12.0 % Serum or plasma prolactin me asurement (mass/volume)Ordered By: Matteo Posadas on 06-26-2024 Prolactin [Mass/Vol] See comment [facility] Comment on above: TEST RESULTS LIMITSP rolactin 31.5 High ng/mL 3.9-22.7 TESTING PERFORMED AT [facility]. ORIGINAL REPORT ON FILE IN LAB CONTAINS ADDITIONAL TEST SITE INFORMATION. Serum or plasma urea nitroge n measurement (mass/volume)Ordered By: Chente Conn on 06-26-2024 Urea nitrogen [Mass/Vol] 11 mg/dL 4-19 [facility] Sodium levelOrdered By: Chente Conn on 06-26-2024 Sodium [Moles/Vol] 136 mmol/L 133-145 [facility] Total proteinOrdered By: Darwin Conn on 06-26-2024 Protein [Mass/Vol] 7.8 g/dL 5.9-8.4 [facility] White blood cell (WBC) count Ordered By: Chente Conn on 06-26-2024 WBC (Bld) [#/Vol] 5.8 10*3/uL 4.4-11.0 [facility] Absolute lymphocyte countOrd ered By: Chente Conn on 05-29-2024 Lymphocytes Auto (Unsp spec) [#/Vol] 2.21 10*3/uL 0.83-4.51 [facility] Absolute neutrophil countOrd ered By: Chente Conn on 05-29-2024 Neutrophils (Bld) [#/Vol] 3.5 10*3/uL 2.0-7.7 [facility] Anion gap in Serum or Plasma Ordered By: Chente Conn on 05-29-2024 Anion gap [Moles/Vol] 12 mmol/L 5-15 [facility] Automated lymphocyte count a s percentage of total leukocytesOrdered By: Chente Conn on 05-29-2024 Lymphocytes/100 WBC Auto (Unsp spec) 32.7 % 19-41 [facility] BUN/creatinine ratioOrdered By: Chente Conn on 05-29-2024 Urea nitrogen/Creatinine [Mass ratio] 37.5 mg/mg High 10-20 [facility] Basophil percentageOrdered B y: Chente Conn on 05-29-2024 Basophils/100 WBC (Bld) 0.3 % 0-1 [facility] Bilirubin, totalOrdered By: Chente Conn on 05-29-2024 Bilirubin [Mass/Vol] mg/dL 0.00-1.30 [facility] Carbon dioxide, total [Moles /volume] in Central venous bloodOrdered By: Chente Conn on 05-29-2024 CO2 [Moles/Vol] 25.6 mmol/L 21.0-32.0 [facility] Chloride assayOrdered By: Areli Conn on 05-29-2024 Chloride [Moles/Vol] 100 mmol/L 98-108 [facility] Eosinophil percentageOrdered By: Chente Conn on 05-29-2024 Eosinophils/100 WBC (Bld) 5.2 % High 0-5 [facility] Erythrocyte distribution wid th ratioOrdered By: Chente Conn on 05-29-2024 Erythrocyte distribution width (RBC) [Ratio] 16.6 % High 11.6-14.6 [facility] Erythrocyte distribution wid th standard deviationOrdered By: Chente Conn on 05-29-2024 Erythrocyte distribution width (RBC) [Ratio] 51.6 fl High 35.1-43.9 [facility] Glomerular filtration rate ( GFR) estimation/1.73 sq m using serum, plasma, or whole bOrdered By: Chente Conn on 05-29-2024 GFR/1.73 sq M.predicted among non-blacks MDRD (S/P/Bld) [Vol rate/Area] 147 mL/min/{1.73_m2} >60 [facility] Comment on above: mL/min/1.73m2 CKD-EP I Creatinine Equation (2020) Hematocrit Auto (Bld) [Volum e fraction]Ordered By: Chente Conn on 05-29-2024 Hematocrit (Bld) [Volume fraction] 31.8 % Low 40-54 [facility] Hemoglobin measurementOrdere d By: Chente Conn on 05-29-2024 Hemoglobin (Bld) [Mass/Vol] 10.0 g/dL Low 13.0-16.5 [facility] Immature granulocytes/100 WB C Auto (Bld)Ordered By: Chente Conn on 05-29-2024 Immature granulocytes/100 WBC (Bld) 0.300 % 0.0-0.9 [facility] Comment on above: IG% - Immature Granu locytes (promyelocytes, myelocytes and metamyelocytes) > 1% indicates that a LEFT SHIFT is Present. Laboratory - Chemistry and C hemistry - challengeOrdered By: Chente Conn on 05-29-2024 AST [Catalytic activity/Vol] 14 U/L <38 [facility] MCV (mean corpuscular volume ) determinationOrdered By: Chente Conn on 05-29-2024 MCV (RBC) [Entitic vol] 84.8 fL 80-94 [facility] Mean corpuscular hemoglobin (MCH) determinationOrdered By: Chente Conn on 05-29-2024 MCH (RBC) [Entitic mass] 26.7 pg Low 27.0-32.0 [facility] Mean corpuscular hemoglobin concentration (MCHC) determinationOrdered By: Chente Conn on 05-29-2024 MCHC (RBC) [Mass/Vol] 31.4 g/dL Low 32-36 [facility] Mean platelet volume determi nationOrdered By: Chente Conn on 05-29-2024 Platelet mean volume (Bld) [Entitic vol] 10.1 fL 6.2-12.0 [facility] Monocyte percentageOrdered B y: Chente Conn on 05-29-2024 Monocytes/100 WBC (Bld) 9.6 % 0-10 [facility] Neutrophil percentageOrdered By: Chente Conn on 05-29-2024 Neutrophils/100 WBC (Bld) 51.9 % 47-70 [facility] Nucleated red blood cell per centageOrdered By: Chente Conn on 05-29-2024 Nucleated RBC/100 WBC (Bld) [Ratio] 0 % 0-5 [facility] Platelet countOrdered By: Areli Conn on 05-29-2024 Platelets (Bld) [#/Vol] 182 10*3/uL 150-450 [facility] Potassium measurement (mass/ volume)Ordered By: Chente Conn on 05-29-2024 Potassium (Unsp spec) [Mass/Vol] 3.7 mmol/L 3.3-5.1 [facility] RBC Auto (Bld) [#/Vol]Ordere d By: Chente Conn on 05-29-2024 RBC (Bld) [#/Vol] 3.75 10*6/uL Low 4.6-6.2 [facility] Serum creatinine measurement (mass/volume)Ordered By: Chente Conn on 05-29-2024 Creatinine [Mass/Vol] 0.34 mg/dL Low 0.70-1.20 [facility] Serum globulin measurementOr dered By: Chente Conn on 05-29-2024 Globulin (S) [Mass/Vol] 3.7 g/dL 2.2-4.2 [facility] Serum glucose measurement (m ass/volume)Ordered By: Chente Conn on 05-29-2024 Glucose [Mass/Vol] 107 mg/dL High 70-99 [facility] Serum or plasma alanine salas otransferase (ALT) measurementOrdered By: Chente Conn on 05-29-2024 ALT [Catalytic activity/Vol] 11 U/L <47 [facility] Serum or plasma albumin jacinta urement (mass/volume)Ordered By: Chente Conn on 05-29-2024 Albumin [Mass/Vol] 3.5 g/dL 3.5-5.0 [facility] Serum or plasma albumin/glob ulin mass ratioOrdered By: Chente Conn on 05-29-2024 Albumin/Globulin [Mass ratio] 0.9 {ratio} 0.9-2.4 [facility] Serum or plasma alkaline robbi sphatase measurementOrdered By: Chente Conn on 05-29-2024 ALP [Catalytic activity/Vol] 131 U/L High 40-129 [facility] Serum or plasma calcium jacinta urement (mass/volume)Ordered By: Chente Conn on 05-29-2024 Calcium [Mass/Vol] 8.8 mg/dL 7.6-11.0 [facility] Serum or plasma urea nitroge n measurement (mass/volume)Ordered By: Chente Conn on 05-29-2024 Urea nitrogen [Mass/Vol] 13 mg/dL 4-19 [facility] Sodium levelOrdered By: Chente Conn on 05-29-2024 Sodium [Moles/Vol] 137 mmol/L 133-145 [facility] Total proteinOrdered By: Darwin Conn on 05-29-2024 Protein [Mass/Vol] 7.1 g/dL 5.9-8.4 [facility] White blood cell (WBC) count Ordered By: Chente Conn on 05-29-2024 WBC (Bld) [#/Vol] 6.8 10*3/uL 4.4-11.0 [facility] Gram stainOrdered By: Johnny Kee on 05-09-2024 Microscopic observation Gram stain Nom (Unsp spec) [facility] Microbial respiratory cultur eOrdered By: Valarie Kee on 05-09-2024 Microorganism identified Cx Nom (Unsp spec) Pseudomonas aeruginosa Abnormal [facility] Microorganism identified Cx Nom (Unsp spec) Pseudomonas aeruginosa#2 Abnormal [facility] Microorganism identified Cx Nom (Unsp spec) Proteus mirabilis Abnormal [facility] Microorganism identified Cx Nom (Unsp spec)Ordered By: Valarie Kee on 05-09-2024 Respiratory Culture Pseudomonas aeruginosa Abnormal [facility] Respiratory Culture Pseudomonas aeruginosa#2 Abnormal [facility] Respiratory Culture Proteus mirabilis Abnormal [facility] Absolute lymphocyte countOrd ered By: Chente Conn on 05-01-2024 Lymphocytes Auto (Unsp spec) [#/Vol] 2.20 10*3/uL 0.83-4.51 [facility] Absolute neutrophil countOrd ered By: Chente Conn on 05-01-2024 Neutrophils (Bld) [#/Vol] 3.1 10*3/uL 2.0-7.7 [facility] Anion gap in Serum or Plasma Ordered By: Chente Conn on 05-01-2024 Anion gap [Moles/Vol] 10 mmol/L 5-15 [facility] Automated lymphocyte count a s percentage of total leukocytesOrdered By: Chente Conn on 05-01-2024 Lymphocytes/100 WBC Auto (Unsp spec) 35.4 % - [facility] BUN/creatinine ratioOrdered By: Chente Conn on 05-01-2024 Urea nitrogen/Creatinine [Mass ratio] 40.6 mg/mg High 10-20 [facility] Basophil percentageOrdered B y: Chente Conn on 05-01-2024 Basophils/100 WBC (Bld) 0.2 % 0-1 [facility] Carbon dioxide, total [Moles /volume] in Central venous bloodOrdered By: Chente Conn on 05-01-2024 CO2 [Moles/Vol] 27.4 mmol/L 21.0-32.0 [facility] Chloride assayOrdered By: Areli Conn on 05-01-2024 Chloride [Moles/Vol] 98 mmol/L 98-108 [facility] Eosinophil percentageOrdered By: Chente Conn on 05-01-2024 Eosinophils/100 WBC (Bld) 4.7 % 0-5 [facility] Erythrocyte distribution wid th ratioOrdered By: Chente Conn on 05-01-2024 Erythrocyte distribution width (RBC) [Ratio] 16.6 % High 11.6-14.6 [facility] Erythrocyte distribution wid th standard deviationOrdered By: Chente Conn on 05-01-2024 Erythrocyte distribution width (RBC) [Entitic vol] 50.4 fL High 35.1-43.9 [facility] Erythrocyte distribution width (RBC) [Ratio] 50.4 fl High 35.1-43.9 [facility] GFR/1.73 sq M.predicted joey g non-blacks MDRD (S/P/Bld) [Vol rate/Area]Ordered By: Chente Conn on 05-01-2024 Estimated GFR (MDRD) Non-Af Amer 154 >60 [facility] Comment on above: mL/min/1.73m2 CKD-EP I Creatinine Equation (2020) Glomerular filtration rate ( GFR) estimation/1.73 sq m using serum, plasma, or whole bOrdered By: Chente Conn on 05-01-2024 GFR/1.73 sq M.predicted among non-blacks MDRD (S/P/Bld) [Vol rate/Area] 154 mL/min/{1.73_m2} >60 [facility] Comment on above: mL/min/1.73m2 CKD-EP I Creatinine Equation (2020) Hematocrit Auto (Bld) [Volum e fraction]Ordered By: Chente Conn on 05-01-2024 Hematocrit (Bld) [Volume fraction] 33.5 % Low 40-54 [facility] Hemoglobin measurementOrdere d By: Chente Conn on 05-01-2024 Hemoglobin (Bld) [Mass/Vol] 10.5 g/dL Low 13.0-16.5 [facility] Immature granulocytes/100 WB C Auto (Bld)Ordered By: Chente Conn on 05-01-2024 Immature granulocytes/100 WBC (Bld) 0.200 % 0.0-0.9 [facility] Comment on above: IG% - Immature Granu locytes (promyelocytes, myelocytes and metamyelocytes) > 1% indicates that a LEFT SHIFT is Present. Lymphocytes Auto (Unsp spec) [#/Vol]Ordered By: Chente Conn on 05-01-2024 Lymphocytes (Bld) [#/Vol] 2.20 10*3/uL 0.83-4.5 1 [facility] Lymphocytes/100 WBC Auto (Un sp spec)Ordered By: Chente Conn on 05-01-2024 Lymphocytes/100 WBC (Bld) 35.4 % 19-41 [facility] MCV (mean corpuscular volume ) determinationOrdered By: Chente Conn on 05-01-2024 MCV (RBC) [Entitic vol] 82.7 fL 80-94 [facility] Mean corpuscular hemoglobin (MCH) determinationOrdered By: Chente Conn on 05-01-2024 MCH (RBC) [Entitic mass] 25.9 pg Low 27.0-32.0 [facility] Mean corpuscular hemoglobin concentration (MCHC) determinationOrdered By: Chente Conn on 05-01-2024 MCHC (RBC) [Mass/Vol] 31.3 g/dL Low 32-36 [facility] Mean platelet volume determi nationOrdered By: Chente Conn on 05-01-2024 Platelet mean volume (Bld) [Entitic vol] 10.5 fL 6.2-12.0 [facility] Monocyte percentageOrdered B y: Chente Conn on 05-01-2024 Monocytes/100 WBC (Bld) 10.3 % High 0-10 [facility] Neutrophil percentageOrdered By: Chente Conn on 05-01-2024 Neutrophils/100 WBC (Bld) 49.2 % 47-70 [facility] Nucleated red blood cell per centageOrdered By: Chente Conn on 03-10-2025 Nucleated RBC/100 WBC (Bld) [Ratio] 0 % 0-5 [facility] Platelet countOrdered By: Areli Conn on 05-01-2024 Platelets (Bld) [#/Vol] 209 10*3/uL 150-450 [facility] Potassium (Unsp spec) [Mass/ Vol]Ordered By: Chente Conn on 05-01-2024 Potassium [Moles/Vol] 4.3 mmol/L 3.3-5.1 [facility] Potassium measurement (mass/ volume)Ordered By: Chente Conn on 05-01-2024 Potassium (Unsp spec) [Mass/Vol] 4.3 mmol/L 3.3-5.1 [facility] RBC Auto (Bld) [#/Vol]Ordere d By: Chente Conn on 05-01-2024 RBC (Bld) [#/Vol] 4.05 10*6/uL Low 4.6-6.2 [facility] Serum creatinine measurement (mass/volume)Ordered By: Chente Conn on 05-01-2024 Creatinine [Mass/Vol] 0.29 mg/dL Low 0.70-1.20 [facility] Serum glucose measurement (m ass/volume)Ordered By: Chente Conn on 05-01-2024 Glucose [Mass/Vol] 82 mg/dL 70-99 [facility] Serum or plasma calcium jacinta urement (mass/volume)Ordered By: Chente Conn on 05-01-2024 Calcium [Mass/Vol] 8.8 mg/dL 7.6-11.0 [facility] Serum or plasma urea nitroge n measurement (mass/volume)Ordered By: Chente Conn on 05-01-2024 Urea nitrogen [Mass/Vol] 12 mg/dL 4-19 [facility] Sodium levelOrdered By: Chente Conn on 05-01-2024 Sodium [Moles/Vol] 135 mmol/L 133-145 [facility] White blood cell (WBC) count Ordered By: Chente Conn on 05-01-2024 WBC (Bld) [#/Vol] 6.2 10*3/uL 4.4-11.0 [facility] Absolute lymphocyte countOrd ered By: Chente Conn on 04-03-2024 Lymphocytes Auto (Unsp spec) [#/Vol] 2.12 10*3/uL 0.83-4.51 [facility] Absolute neutrophil countOrd ered By: Chente Conn on 04-03-2024 Neutrophils (Bld) [#/Vol] 2.2 10*3/uL 2.0-7.7 [facility] Automated lymphocyte count a s percentage of total leukocytesOrdered By: Chente Conn on 04-03-2024 Lymphocytes/100 WBC Auto (Unsp spec) 41.2 % High 19-41 [facility] Basophil percentageOrdered B y: Chente Conn on 04-03-2024 Basophils/100 WBC (Bld) 0.2 % 0-1 [facility] Blood urea nitrogen (BUN)/cr eatinine ratioOrdered By: Chente Conn on 04-03-2024 Urea nitrogen/Creatinine [Mass ratio] 52.6 mg/mg High 10-20 [facility] Carbon dioxide measurementOr dered By: Chente Conn on 04-03-2024 CO2 [Moles/Vol] 32.0 mmol/L 21.0-32.0 [facility] Chloride measurementOrdered By: Chente Conn on 04-03-2024 Chloride [Moles/Vol] 102 mmol/L 98-107 [facility] Eosinophil percentageOrdered By: Chente Conn on 04-03-2024 Eosinophils/100 WBC (Bld) 4.9 % 0-5 [facility] Erythrocyte distribution wid th ratioOrdered By: Chente Conn on 04-03-2024 Erythrocyte distribution width (RBC) [Ratio] 15.6 % High 11.6-14.6 [facility] Erythrocyte distribution wid th standard deviationOrdered By: Chente Conn on 04-03-2024 Erythrocyte distribution width (RBC) [Entitic vol] 46.3 fL High 35.1-43.9 [facility] Erythrocyte distribution width (RBC) [Ratio] 46.3 fl High 35.1-43.9 [facility] Estimated glomerular filtrat ion rate (GFR) AmericanOrdered By: Chente Conn on 04-03-2024 Estimated GFR (MDRD) Amer 641 mL/min >60 [facility] Comment on above: GFR Calc Glomerular filtration rate ( GFR) estimationOrdered By: Chente Conn on 04-03-2024 Estimated GFR (MDRD) Non-Af Amer 530 mL/min >60 [facility] Comment on above: Non- GFR Calc GFR/1.73 sq M.predicted among non-blacks MDRD (S/P/Bld) [Vol rate/Area] 530 mL/min/{1.73_m2} >60 [facility] Comment on above: Non- GFR Calc Glucose measurementOrdered B y: Chente Conn on 04-03-2024 Glucose [Mass/Vol] 87 mg/dL 74-106 [facility] Hematocrit Auto (Bld) [Volum e fraction]Ordered By: Chente Conn on 04-03-2024 Hematocrit (Bld) [Volume fraction] 30.9 % Low 40-54 [facility] Hemoglobin measurementOrdere d By: Chente Conn on 04-03-2024 Hemoglobin (Bld) [Mass/Vol] 9.8 g/dL Low 13.0-16.5 [facility] Immature granulocytes/100 WB C Auto (Bld)Ordered By: Chente Conn on 04-03-2024 Immature granulocytes/100 WBC (Bld) 0.200 % 0.0-0.9 [facility] Comment on above: IG% - Immature Granu locytes (promyelocytes, myelocytes and metamyelocytes) > 1% indicates that a LEFT SHIFT is Present. Lymphocytes Auto (Unsp spec) [#/Vol]Ordered By: Chente Conn on 04-03-2024 Lymphocytes (Bld) [#/Vol] 2.12 10*3/uL 0.83-4.5 1 [facility] Lymphocytes/100 WBC Auto (Un sp spec)Ordered By: Chente Conn on 04-03-2024 Lymphocytes/100 WBC (Bld) 41.2 % High 19-41 [facility] MCV (mean corpuscular volume ) determinationOrdered By: Chente Conn on 04-03-2024 MCV (RBC) [Entitic vol] 82.8 fL 80-94 [facility] Mean corpuscular hemoglobin (MCH) determinationOrdered By: Chente Conn on 04-03-2024 MCH (RBC) [Entitic mass] 26.3 pg Low 27.0-32.0 [facility] Mean corpuscular hemoglobin concentration (MCHC) determinationOrdered By: Chente Conn on 04-03-2024 MCHC (RBC) [Mass/Vol] 31.7 g/dL Low 32-36 [facility] Mean platelet volume determi nationOrdered By: Chente Conn on 04-03-2024 Platelet mean volume (Bld) [Entitic vol] 9.8 fL 6.2-12.0 [facility] Monocyte percentageOrdered B y: Chente Conn on 04-03-2024 Monocytes/100 WBC (Bld) 10.9 % High 0-10 [facility] Neutrophil percentageOrdered By: Chente Conn on 04-03-2024 Neutrophils/100 WBC (Bld) 42.6 % Low 47-70 [facility] Nucleated red blood cell per centageOrdered By: Chente Conn on 04-03-2024 Nucleated RBC/100 WBC (Bld) [Ratio] 0 % 0-5 [facility] Platelet countOrdered By: Areli Conn on 04-03-2024 Platelets (Bld) [#/Vol] 170 10*3/uL 150-450 [facility] Potassium measurementOrdered By: Chente Conn on 04-03-2024 Potassium [Moles/Vol] 3.8 mmol/L 3.5-5.1 [facility] RBC Auto (Bld) [#/Vol]Ordere d By: Chente oCnn on 04-03-2024 RBC (Bld) [#/Vol] 3.73 10*6/uL Low 4.6-6.2 [facility] Serum anion gap measurementO rdered By: Chente Conn on 04-03-2024 Anion gap [Moles/Vol] 5 mmol/L 5-15 [facility] Serum or plasma calcium jacinta urement (mass/volume)Ordered By: Chente Conn on 04-03-2024 Calcium [Mass/Vol] 8.4 mg/dL Low 8.5-10.1 [facility] Serum or plasma creatinine m easurement (mass/volume)Ordered By: Chente Conn on 04-03-2024 Creatinine [Mass/Vol] 0.21 mg/dL Low 0.70-1.30 [facility] Comment on above: The validity of the calculated GFR & GFRAA in patients over 70 years has not been determined. Clinical correlation is essential. Serum or plasma urea nitroge n measurement (mass/volume)Ordered By: Chente Conn on 04-03-2024 Urea nitrogen [Mass/Vol] 11 mg/dL 7-18 [facility] Sodium levelOrdered By: Chente Conn on 04-03-2024 Sodium [Moles/Vol] 138 mmol/L 136-145 [facility] White blood cell (WBC) count Ordered By: Chente Conn on 04-03-2024 WBC (Bld) [#/Vol] 5.1 10*3/uL 4.4-11.0 [facility] Absolute lymphocyte countOrd ered By: Chente Conn on 03-08-2024 Lymphocytes Auto (Unsp spec) [#/Vol] 1.74 10*3/uL 0.83-4.51 [facility] Absolute neutrophil countOrd ered By: Chente Conn on 03-08-2024 Neutrophils (Bld) [#/Vol] 2.6 10*3/uL 2.0-7.7 [facility] Automated lymphocyte count a s percentage of total leukocytesOrdered By: Chente Conn on 03-08-2024 Lymphocytes/100 WBC Auto (Unsp spec) 33.7 % 19-41 [facility] Basophil percentageOrdered B y: Chente Conn on 03-08-2024 Basophils/100 WBC (Bld) 0.2 % 0-1 [facility] Blood urea nitrogen (BUN)/cr eatinine ratioOrdered By: Chente Conn on 03-08-2024 Urea nitrogen/Creatinine [Mass ratio] 53.2 mg/mg High 10-20 [facility] Carbon dioxide measurementOr dered By: Chente Conn on 03-08-2024 CO2 [Moles/Vol] 31.0 mmol/L 21.0-32.0 [facility] Chloride measurementOrdered By: Chente Conn on 03-08-2024 Chloride [Moles/Vol] 102 mmol/L 98-107 [facility] Eosinophil percentageOrdered By: Chente Conn on 03-08-2024 Eosinophils/100 WBC (Bld) 5.8 % High 0-5 [facility] Erythrocyte distribution wid th ratioOrdered By: Chenet Conn on 03-08-2024 Erythrocyte distribution width (RBC) [Ratio] 14.4 % 11.6-14.6 [facility] Erythrocyte distribution wid th standard deviationOrdered By: Chente Conn on 03-08-2024 Erythrocyte distribution width (RBC) [Entitic vol] 43.7 fL 35.1-43.9 [facility] Erythrocyte distribution width (RBC) [Ratio] 43.7 fl 35.1-43.9 [facility] Estimated glomerular filtrat ion rate (GFR) AmericanOrdered By: Chente Conn on 03-08-2024 Estimated GFR (MDRD) Amer 454 mL/min >60 [facility] Comment on above: GFR Calc Glomerular filtration rate ( GFR) estimationOrdered By: Chente Conn on 03-08-2024 Estimated GFR (MDRD) Non-Af Amer 375 mL/min >60 [facility] Comment on above: Non- GFR Calc GFR/1.73 sq M.predicted among non-blacks MDRD (S/P/Bld) [Vol rate/Area] 375 mL/min/{1.73_m2} >60 [facility] Comment on above: Non- GFR Calc Glucose measurementOrdered B y: Chente Conn on 03-08-2024 Glucose [Mass/Vol] 112 mg/dL High 74-106 [facility] Comment on above: Fasting Glucose resu lt from 100 to 125 mg/dL suggests IMPAIRED HOMEOSTASIS per A.D.A. criteria. Hematocrit Auto (Bld) [Volum e fraction]Ordered By: Chente Conn on 03-08-2024 Hematocrit (Bld) [Volume fraction] 31.3 % Low 40-54 [facility] Hemoglobin measurementOrdere d By: Chente Conn on 03-08-2024 Hemoglobin (Bld) [Mass/Vol] 9.7 g/dL Low 13.0-16.5 [facility] Immature granulocytes/100 WB C Auto (Bld)Ordered By: Chente Conn on 03-08-2024 Immature granulocytes/100 WBC (Bld) 0.200 % 0.0-0.9 [facility] Comment on above: IG% - Immature Granu locytes (promyelocytes, myelocytes and metamyelocytes) > 1% indicates that a LEFT SHIFT is Present. Lymphocytes Auto (Unsp spec) [#/Vol]Ordered By: Chente Conn on 03-08-2024 Lymphocytes (Bld) [#/Vol] 1.74 10*3/uL 0.83-4.5 1 [facility] Lymphocytes/100 WBC Auto (Un sp spec)Ordered By: Chente Conn on 03-08-2024 Lymphocytes/100 WBC (Bld) 33.7 % 19-41 [facility] MCV (mean corpuscular volume ) determinationOrdered By: Chente Conn on 03-08-2024 MCV (RBC) [Entitic vol] 83.7 fL 80-94 [facility] Mean corpuscular hemoglobin (MCH) determinationOrdered By: Chente Conn on 03-08-2024 MCH (RBC) [Entitic mass] 25.9 pg Low 27.0-32.0 [facility] Mean corpuscular hemoglobin concentration (MCHC) determinationOrdered By: Chente Conn on 03-08-2024 MCHC (RBC) [Mass/Vol] 31.0 g/dL Low 32-36 [facility] Mean platelet volume determi nationOrdered By: Chente Conn on 03-08-2024 Platelet mean volume (Bld) [Entitic vol] 10.7 fL 6.2-12.0 [facility] Monocyte percentageOrdered B y: Chente Conn on 03-08-2024 Monocytes/100 WBC (Bld) 9.7 % 0-10 [facility] Neutrophil percentageOrdered By: Chente Conn on 03-08-2024 Neutrophils/100 WBC (Bld) 50.4 % 47-70 [facility] Nucleated red blood cell per centageOrdered By: Chente Conn on 03-08-2024 Nucleated RBC/100 WBC (Bld) [Ratio] 0 % 0-5 [facility] Platelet countOrdered By: Areli Conn on 03-08-2024 Platelets (Bld) [#/Vol] 177 10*3/uL 150-450 [facility] Potassium measurementOrdered By: Chente Conn on 03-08-2024 Potassium [Moles/Vol] 3.5 mmol/L 3.5-5.1 [facility] RBC Auto (Bld) [#/Vol]Ordere d By: Chente Conn on 03-08-2024 RBC (Bld) [#/Vol] 3.74 10*6/uL Low 4.6-6.2 [facility] Serum anion gap measurementO rdered By: Chente Conn on 03-08-2024 Anion gap [Moles/Vol] 5 mmol/L 5-15 [facility] Serum or plasma calcium jacinta urement (mass/volume)Ordered By: Chente Conn on 03-08-2024 Calcium [Mass/Vol] 8.3 mg/dL Low 8.5-10.1 [facility] Serum or plasma creatinine m easurement (mass/volume)Ordered By: Chente Conn on 03-08-2024 Creatinine [Mass/Vol] 0.28 mg/dL Low 0.70-1.30 [facility] Comment on above: The validity of the calculated GFR & GFRAA in patients over 70 years has not been determined. Clinical correlation is essential. Serum or plasma urea nitroge n measurement (mass/volume)Ordered By: Chente Conn on 03-08-2024 Urea nitrogen [Mass/Vol] 15 mg/dL 7-18 [facility] Sodium levelOrdered By: Chente Conn on 03-08-2024 Sodium [Moles/Vol] 139 mmol/L 136-145 [facility] White blood cell (WBC) count Ordered By: Chente Conn on 03-08-2024 WBC (Bld) [#/Vol] 5.2 10*3/uL 4.4-11.0 [facility] Absolute neutrophil countOrd ered By: Chente Conn on 02-24-2024 Neutrophils (Bld) [#/Vol] 2.3 10*3/uL 2.0-7.7 [facility] Basophil percentageOrdered B y: Chente Conn on 02-24-2024 Basophils/100 WBC (Bld) 0.2 % 0-1 [facility] Blood urea nitrogen (BUN)/cr eatinine ratioOrdered By: Chente Conn on 02-24-2024 Urea nitrogen/Creatinine [Mass ratio] 53.8 mg/mg High 10-20 [facility] Carbon dioxide measurementOr dered By: Chente Conn on 02-24-2024 CO2 [Moles/Vol] 29.0 mmol/L 21.0-32.0 [facility] Chloride measurementOrdered By: Chente Conn on 02-24-2024 Chloride [Moles/Vol] 104 mmol/L 98-107 [facility] Eosinophil percentageOrdered By: Chente Conn on 02-24-2024 Eosinophils/100 WBC (Bld) 5.8 % High 0-5 [facility] Erythrocyte distribution wid th ratioOrdered By: Chente Conn on 02-24-2024 Erythrocyte distribution width (RBC) [Ratio] 14.1 % 11.6-14.6 [facility] Erythrocyte distribution wid th standard deviationOrdered By: Chente Conn on 02-24-2024 Erythrocyte distribution width (RBC) [Entitic vol] 43.2 fL 35.1-43.9 [facility] Estimated glomerular filtrat ion rate (GFR) AmericanOrdered By: Chente Conn on 02-24-2024 Estimated GFR (MDRD) Amer 460 mL/min >60 [facility] Comment on above: GFR Calc Glomerular filtration rate ( GFR) estimationOrdered By: Chente Conn on 02-24-2024 Estimated GFR (MDRD) Non-Af Amer 380 mL/min >60 [facility] Comment on above: Non- GFR Calc Glucose measurementOrdered B y: Chente Conn on 02-24-2024 Glucose [Mass/Vol] 102 mg/dL 74-106 [facility] Comment on above: Fasting Glucose resu lt from 100 to 125 mg/dL suggests IMPAIRED HOMEOSTASIS per A.D.A. criteria. Hematocrit Auto (Bld) [Volum e fraction]Ordered By: Chente Conn on 02-24-2024 Hematocrit (Bld) [Volume fraction] 32.6 % Low 40-54 [facility] Hemoglobin measurementOrdere d By: Chente Conn on 02-24-2024 Hemoglobin (Bld) [Mass/Vol] 9.8 g/dL Low 13.0-16.5 [facility] Immature granulocytes/100 WB C Auto (Bld)Ordered By: Chente Conn on 02-24-2024 Immature granulocytes/100 WBC (Bld) 0.200 % 0.0-0.9 [facility] Comment on above: IG% - Immature Granu locytes (promyelocytes, myelocytes and metamyelocytes) > 1% indicates that a LEFT SHIFT is Present. Lymphocytes Auto (Unsp spec) [#/Vol]Ordered By: Chente Conn on 02-24-2024 Lymphocytes (Bld) [#/Vol] 1.93 10*3/uL 0.83-4.5 1 [facility] Lymphocytes/100 WBC Auto (Un sp spec)Ordered By: Chente Conn on 02-24-2024 Lymphocytes/100 WBC (Bld) 38.5 % 19-41 [facility] MCV (mean corpuscular volume ) determinationOrdered By: Chente Conn on 02-24-2024 MCV (RBC) [Entitic vol] 84.9 fL 80-94 [facility] Mean corpuscular hemoglobin (MCH) determinationOrdered By: Chente Conn on 02-24-2024 MCH (RBC) [Entitic mass] 25.5 pg Low 27.0-32.0 [facility] Mean corpuscular hemoglobin concentration (MCHC) determinationOrdered By: Chente Conn on 02-24-2024 MCHC (RBC) [Mass/Vol] 30.1 g/dL Low 32-36 [facility] Mean platelet volume determi nationOrdered By: Chente Conn on 02-24-2024 Platelet mean volume (Bld) [Entitic vol] 9.9 fL 6.2-12.0 [facility] Monocyte percentageOrdered B y: Chente Conn on 02-24-2024 Monocytes/100 WBC (Bld) 8.8 % 0-10 [facility] Neutrophil percentageOrdered By: Chente Conn on 02-24-2024 Neutrophils/100 WBC (Bld) 46.5 % Low 47-70 [facility] Nucleated red blood cell per centageOrdered By: Chente Conn on 02-24-2024 Nucleated RBC/100 WBC (Bld) [Ratio] 0 % 0-5 [facility] Platelet countOrdered By: Areli Conn on 02-24-2024 Platelets (Bld) [#/Vol] 209 10*3/uL 150-450 [facility] Potassium measurementOrdered By: Chente Conn on 02-24-2024 Potassium [Moles/Vol] 3.7 mmol/L 3.5-5.1 [facility] RBC Auto (Bld) [#/Vol]Ordere d By: Chente Conn on 02-24-2024 RBC (Bld) [#/Vol] 3.84 10*6/uL Low 4.6-6.2 [facility] Serum anion gap measurementO rdered By: Chente Conn on 02-24-2024 Anion gap [Moles/Vol] 6 mmol/L 5-15 [facility] Serum or plasma calcium jacinta urement (mass/volume)Ordered By: Chente Conn on 02-24-2024 Calcium [Mass/Vol] 8.2 mg/dL Low 8.5-10.1 [facility] Serum or plasma creatinine m easurement (mass/volume)Ordered By: Chente Conn on 02-24-2024 Creatinine [Mass/Vol] 0.28 mg/dL Low 0.70-1.30 [facility] Comment on above: The validity of the calculated GFR & GFRAA in patients over 70 years has not been determined. Clinical correlation is essential. Serum or plasma urea nitroge n measurement (mass/volume)Ordered By: Chente Conn on 02-24-2024 Urea nitrogen [Mass/Vol] 15 mg/dL 7-18 [facility] Sodium levelOrdered By: Chente Conn on 02-24-2024 Sodium [Moles/Vol] 138 mmol/L 136-145 [facility] White blood cell (WBC) count Ordered By: Chente Conn on 02-24-2024 WBC (Bld) [#/Vol] 5.0 10*3/uL 4.4-11.0 [facility] Absolute neutrophil countOrd ered By: Racquel Moss on 2024 Neutrophils (Bld) [#/Vol] 5.0 10*3/uL 2.0-7.7 [facility] Basophil percentageOrdered B y: Racquel Moss on 2024 Basophils/100 WBC (Bld) 0.2 % 0-1 [facility] Blood cultureOrdered By: Jessi Moss on 2024 Bacteria identified Cx Nom (Bld) No growth in 5 days. [facility] Blood urea nitrogen (BUN)/cr eatinine ratioOrdered By: Racquel Moss on 2024 Urea nitrogen/Creatinine [Mass ratio] 24.2 mg/mg High 10-20 [facility] C-reactive protein measureme nt by high sensitivity methodOrdered By: Racquel Moss on 2024 C-Reactive Protein Extended Range 73.50 mg/L High 0.0-3.0 [facility] Comment on above: C-Reactive Protein ( CRP) provides useful information for thediagnosis, therapy and monitoring of inflammatory processesand associated diseases. For the evaluation of Relative Riskfor Cardiovascular Disease, a High Sensitivity CRP (HSCRP)should be ordered. Carbon dioxide measurementOr dered By: Racquel Moss on 2024 CO2 [Moles/Vol] 30.0 mmol/L 21.0-32.0 [facility] Chloride measurementOrdered By: Racquel Moss on 2024 Chloride [Moles/Vol] 100 mmol/L 98-107 [facility] Eosinophil percentageOrdered By: Racquel Moss on 2024 Eosinophils/100 WBC (Bld) 0.6 % 0-5 [facility] Erythrocyte distribution wid th ratioOrdered By: Remus Moss on 2024 Erythrocyte distribution width (RBC) [Ratio] 13.8 % 11.6-14.6 [facility] Erythrocyte distribution wid th standard deviationOrdered By: Remus Moss on 2024 Erythrocyte distribution width (RBC) [Entitic vol] 42.7 fL 35.1-43.9 [facility] Erythrocyte sedimentation ra teOrdered By: Remus Unggilles on 2024 ESR (Bld) [Velocity] 47 mm/h High 0-20 [facility] Estimated glomerular filtrat ion rate (GFR) AmericanOrdered By: Remus Unggilles on 2024 Estimated GFR (MDRD) Amer 379 mL/min >60 [facility] Comment on above: GFR Calc Estimation of creatinine poly aranceOrdered By: Racquel Moss on 2024 Estimated Creatinine Clearance Calc 265.33 ml/min [facility] Glomerular filtration rate ( GFR) estimationOrdered By: Racquel Moss on 2024 Estimated GFR (MDRD) Non-Af Amer 313 mL/min >60 [facility] Comment on above: Non- GFR Calc Glucose measurementOrdered B y: Racquel Moss on 2024 Glucose [Mass/Vol] 117 mg/dL High 74-106 [facility] Comment on above: Fasting Glucose resu lt from 100 to 125 mg/dL suggests IMPAIRED HOMEOSTASIS per A.D.A. criteria. Hematocrit Auto (Bld) [Volum e fraction]Ordered By: Racquel Moss on 2024 Hematocrit (Bld) [Volume fraction] 33.5 % Low 40-54 [facility] Hemoglobin measurementOrdere d By: Racquel Moss on 2024 Hemoglobin (Bld) [Mass/Vol] 10.8 g/dL Low 13.0-16.5 [facility] Immature granulocytes/100 WB C Auto (Bld)Ordered By: Racquel Moss on 2024 Immature granulocytes/100 WBC (Bld) 0.600 % 0.0-0.9 [facility] Comment on above: IG% - Immature Granu locytes (promyelocytes, myelocytes and metamyelocytes) > 1% indicates that a LEFT SHIFT is Present. Lactic acid measurementOrder ed By: Racquel Moss on 2024 Lactate [Moles/Vol] 2.0 mmol/L 0.4-2.0 [facility] Comment on above: Critical Result(s) C alled at: 18:05:46 2024 by: SHONDA REAVES. Results read back by Lakesha Steven Lymphocytes Auto (Unsp spec) [#/Vol]Ordered By: Racquel Moss on 2024 Lymphocytes (Bld) [#/Vol] 0.82 10*3/uL Low 0.83-4.5 1 [facility] Lymphocytes/100 WBC Auto (Un sp spec)Ordered By: Racquel Moss on 2024 Lymphocytes/100 WBC (Bld) 12.4 % Low 19-41 [facility] MCV (mean corpuscular volume ) determinationOrdered By: Remus Moss on 2024 MCV (RBC) [Entitic vol] 84.6 fL 80-94 [facility] Mean corpuscular hemoglobin (MCH) determinationOrdered By: Rem Unggilles on 2024 MCH (RBC) [Entitic mass] 27.3 pg 27.0-32.0 [facility] Mean corpuscular hemoglobin concentration (MCHC) determinationOrdered By: Rem Unggilles on 2024 MCHC (RBC) [Mass/Vol] 32.2 g/dL 32-36 [facility] Mean platelet volume determi nationOrdered By: Racquel Moss on 2024 Platelet mean volume (Bld) [Entitic vol] 10.0 fL 6.2-12.0 [facility] Monocyte percentageOrdered B y: Remus Moss on 2024 Monocytes/100 WBC (Bld) 11.2 % High 0-10 [facility] Neutrophil percentageOrdered By: Remus Moss on 2024 Neutrophils/100 WBC (Bld) 75.0 % High 47-70 [facility] Nucleated red blood cell per centageOrdered By: Racquel Moss on 2024 Nucleated RBC/100 WBC (Bld) [Ratio] 0 % 0-5 [facility] Platelet countOrdered By: Carmen Moss on 2024 Platelets (Bld) [#/Vol] 113 10*3/uL Low 150-450 [facility] Potassium measurementOrdered By: Racquel Moss on 2024 Potassium [Moles/Vol] 4.0 mmol/L 3.5-5.1 [facility] RBC Auto (Bld) [#/Vol]Ordere d By: Racquel Unggilles on 2024 RBC (Bld) [#/Vol] 3.96 10*6/uL Low 4.6-6.2 [facility] Serum anion gap measurementO rdered By: Racquel Moss on 2024 Anion gap [Moles/Vol] 4 mmol/L Low 5-15 [facility] Serum or plasma calcium jacinta urement (mass/volume)Ordered By: Racquel Moss on 2024 Calcium [Mass/Vol] 8.9 mg/dL 8.5-10.1 [facility] Serum or plasma creatinine m easurement (mass/volume)Ordered By: Racquel Moss on 2024 Creatinine [Mass/Vol] 0.33 mg/dL Low 0.70-1.30 [facility] Comment on above: The validity of the calculated GFR & GFRAA in patients over 70 years has not been determined. Clinical correlation is essential. Serum or plasma urea nitroge n measurement (mass/volume)Ordered By: Racquel Moss on 2024 Urea nitrogen [Mass/Vol] 8 mg/dL 7-18 [facility] Sodium levelOrdered By: Vinny Moss on 2024 Sodium [Moles/Vol] 135 mmol/L Low 136-145 [facility] White blood cell (WBC) count Ordered By: Racquel Moss on 2024 WBC (Bld) [#/Vol] 6.6 10*3/uL 4.4-11.0 [facility] Absolute neutrophil countOrd ered By: Chente Conn on 01-27-2024 Neutrophils (Bld) [#/Vol] 2.2 10*3/uL 2.0-7.7 [facility] Basophil percentageOrdered B y: Chente Conn on 01-27-2024 Basophils/100 WBC (Bld) 0.5 % 0-1 [facility] Blood urea nitrogen (BUN)/cr eatinine ratioOrdered By: Chente Conn on 01-27-2024 Urea nitrogen/Creatinine [Mass ratio] 43.3 mg/mg High 10-20 [facility] Carbon dioxide measurementOr dered By: Chente Conn on 01-27-2024 CO2 [Moles/Vol] 30.0 mmol/L 21.0-32.0 [facility] Chloride measurementOrdered By: Chente Conn on 01-27-2024 Chloride [Moles/Vol] 103 mmol/L 98-107 [facility] Eosinophil percentageOrdered By: Chente Conn on 01-27-2024 Eosinophils/100 WBC (Bld) 4.7 % 0-5 [facility] Erythrocyte distribution wid th ratioOrdered By: Chente Conn on 01-27-2024 Erythrocyte distribution width (RBC) [Ratio] 14.2 % 11.6-14.6 [facility] Erythrocyte distribution wid th standard deviationOrdered By: Chente Conn on 01-27-2024 Erythrocyte distribution width (RBC) [Entitic vol] 44.8 fL High 35.1-43.9 [facility] Estimated glomerular filtrat ion rate (GFR) AmericanOrdered By: Chente Conn on 01-27-2024 Estimated GFR (MDRD) Amer 388 mL/min >60 [facility] Comment on above: GFR Calc Glomerular filtration rate ( GFR) estimationOrdered By: Chente Conn on 01-27-2024 Estimated GFR (MDRD) Non-Af Amer 321 mL/min >60 [facility] Comment on above: Non- GFR Calc Glucose measurementOrdered B y: Chente Conn on 01-27-2024 Glucose [Mass/Vol] 99 mg/dL 74-106 [facility] Hematocrit Auto (Bld) [Volum e fraction]Ordered By: Chente Conn on 01-27-2024 Hematocrit (Bld) [Volume fraction] 33.6 % Low 40-54 [facility] Hemoglobin measurementOrdere d By: Chente Conn on 01-27-2024 Hemoglobin (Bld) [Mass/Vol] 10.5 g/dL Low 13.0-16.5 [facility] Immature granulocytes/100 WB C Auto (Bld)Ordered By: Chente Conn on 01-27-2024 Immature granulocytes/100 WBC (Bld) 0.000 % 0.0-0.9 [facility] Comment on above: IG% - Immature Granu locytes (promyelocytes, myelocytes and metamyelocytes) > 1% indicates that a LEFT SHIFT is Present. Lymphocytes Auto (Unsp spec) [#/Vol]Ordered By: Chente Conn on 01-27-2024 Lymphocytes (Bld) [#/Vol] 1.16 10*3/uL 0.83-4.5 1 [facility] Lymphocytes/100 WBC Auto (Un sp spec)Ordered By: Chente Conn on 01-27-2024 Lymphocytes/100 WBC (Bld) 28.9 % 19-41 [facility] MCV (mean corpuscular volume ) determinationOrdered By: Chente Conn on 01-27-2024 MCV (RBC) [Entitic vol] 85.9 fL 80-94 [facility] Mean corpuscular hemoglobin (MCH) determinationOrdered By: Chente Conn on 01-27-2024 MCH (RBC) [Entitic mass] 26.9 pg Low 27.0-32.0 [facility] Mean corpuscular hemoglobin concentration (MCHC) determinationOrdered By: Chente Conn on 01-27-2024 MCHC (RBC) [Mass/Vol] 31.3 g/dL Low 32-36 [facility] Mean platelet volume determi nationOrdered By: Chente Conn on 01-27-2024 Platelet mean volume (Bld) [Entitic vol] 10.3 fL 6.2-12.0 [facility] Monocyte percentageOrdered B y: Chente Conn on 01-27-2024 Monocytes/100 WBC (Bld) 10.2 % High 0-10 [facility] Neutrophil percentageOrdered By: Chente Conn on 01-27-2024 Neutrophils/100 WBC (Bld) 55.7 % 47-70 [facility] Nucleated red blood cell per centageOrdered By: Chente Conn on 01-27-2024 Nucleated RBC/100 WBC (Bld) [Ratio] 0 % 0-5 [facility] Platelet countOrdered By: Areli Conn on 01-27-2024 Platelets (Bld) [#/Vol] 161 10*3/uL 150-450 [facility] Potassium measurementOrdered By: Chente Conn on 01-27-2024 Potassium [Moles/Vol] 4.0 mmol/L 3.5-5.1 [facility] RBC Auto (Bld) [#/Vol]Ordere d By: Chente Conn on 01-27-2024 RBC (Bld) [#/Vol] 3.91 10*6/uL Low 4.6-6.2 [facility] Serum anion gap measurementO rdered By: Chente Conn on 01-27-2024 Anion gap [Moles/Vol] 7 mmol/L 5-15 [facility] Serum or plasma calcium jacinta urement (mass/volume)Ordered By: Chente Conn on 01-27-2024 Calcium [Mass/Vol] 9.0 mg/dL 8.5-10.1 [facility] Serum or plasma creatinine m easurement (mass/volume)Ordered By: Chente Conn on 01-27-2024 Creatinine [Mass/Vol] 0.32 mg/dL Low 0.70-1.30 [facility] Comment on above: The validity of the calculated GFR & GFRAA in patients over 70 years has not been determined. Clinical correlation is essential. Serum or plasma urea nitroge n measurement (mass/volume)Ordered By: Chente Conn on 01-27-2024 Urea nitrogen [Mass/Vol] 14 mg/dL 7-18 [facility] Sodium levelOrdered By: Chente Conn on 01-27-2024 Sodium [Moles/Vol] 140 mmol/L 136-145 [facility] White blood cell (WBC) count Ordered By: Chente Conn on 01-27-2024 WBC (Bld) [#/Vol] 4.0 10*3/uL Low 4.4-11.0 [facility] Absolute lymphocyte countOrd ered By: Torey Huffman on 06-14-2023 Lymphocytes Auto (Unsp spec) [#/Vol] 2.38 10*3/uL 0.83-4.51 [facility] Automated lymphocyte count a s percentage of total leukocytesOrdered By: Torey Huffman on 06-14-2023 Lymphocytes/100 WBC Auto (Unsp spec) 35.4 % 19-41 [facility] Basophil percentageOrdered B y: Torey Huffman on 06-14-2023 Basophils/100 WBC (Bld) 0.3 % 0-1 [facility] Chloride [Moles/Vol] 104 mmol/L 98-107 [facility] Eosinophils/100 WBC (Bld) 4.3 % 0-5 [facility] Glucose [Mass/Vol] 101 mg/dL 74-106 [facility] Comment on above: Fasting Glucose resu lt from 100 to 125 mg/dL suggests IMPAIRED HOMEOSTASIS per A.D.A. criteria. Hemoglobin (Bld) [Mass/Vol] 11.2 g/dL 13.0-16.5 [facility] Monocytes/100 WBC (Bld) 9.4 % 0-10 [facility] Neutrophils (Bld) [#/Vol] 3.4 10*3/uL 2.0-7.7 [facility] Neutrophils/100 WBC (Bld) 50.5 % 47-70 [facility] Potassium [Moles/Vol] 3.7 mmol/L 3.5-5.1 [facility] Sodium [Moles/Vol] 139 mmol/L 136-145 [facility] WBC (Bld) [#/Vol] 6.7 10*3/uL 4.4-11.0 [facility] Determination of erythrocyte mean corpuscular volume (MCV)Ordered By: Torey Huffman on 06-14-2023 MCV (RBC) [Entitic vol] 83.3 fL 80-94 [facility] Erythrocyte distribution wid th ratioOrdered By: Torey Huffman on 06-14-2023 Erythrocyte distribution width (RBC) [Ratio] 14.7 % 11.6-14.6 [facility] Erythrocyte distribution wid th standard deviationOrdered By: Torey Huffman on 06-14-2023 Erythrocyte distribution width (RBC) [Entitic vol] 44.5 fL 35.1-43.9 [facility] Hematocrit Auto (Bld) [Volum e fraction]Ordered By: Torey Huffman on 06-14-2023 Hematocrit (Bld) [Volume fraction] 34.4 % 40-54 [facility] Immature granulocytes/100 WB C Auto (Bld)Ordered By: Torey Huffman on 06-14-2023 Immature granulocytes/100 WBC (Bld) 0.100 % 0.0-0.9 [facility] Comment on above: IG% - Immature Granu locytes (promyelocytes, myelocytes and metamyelocytes) > 1% indicates that a LEFT SHIFT is Present. Laboratory - Chemistry and C hemistry - challengeOrdered By: Torey Huffman on 06-14-2023 CO2 [Moles/Vol] 31.0 mmol/L 21.0-32.0 [facility] Urea nitrogen/Creatinine [Mass ratio] 43.2 mg/mg 10-20 [facility] Laboratory - Hematology and Cell countsOrdered By: Torey Huffman on 06-14-2023 MCH (RBC) [Entitic mass] 27.1 pg 27.0-32.0 [facility] MCHC (RBC) [Mass/Vol] 32.6 g/dL 32-36 [facility] Nucleated RBC/100 WBC (Bld) [Ratio] 0 % 0-5 [facility] Platelet mean volume (Bld) [Entitic vol] 10.4 fL 6.2-12.0 [facility] Platelets (Bld) [#/Vol] 178 10*3/uL 150-450 [facility] No Panel InformationOrdered By: Torey Huffman on 06-14-2023 Estimated GFR (MDRD) Amer 423 mL/min >60 [facility] Comment on above: GFR Calc Estimated GFR (MDRD) Non-Af Amer 349 mL/min >60 [facility] Comment on above: Non- GFR Calc RBC Auto (Bld) [#/Vol]Ordere d By: Torey Huffman on 06-14-2023 RBC (Bld) [#/Vol] 4.13 10*6/uL 4.6-6.2 [facility] Serum or plasma calcium jacinta urement (mass/volume)Ordered By: Torey Huffman on 06-14-2023 Calcium [Mass/Vol] 8.3 mg/dL 8.5-10.1 [facility] Serum or plasma creatinine m easurement (mass/volume)Ordered By: Torey Huffman on 06-14-2023 Creatinine [Mass/Vol] 0.30 mg/dL 0.70-1.30 [facility] Comment on above: The validity of the calculated GFR & GFRAA in patients over 70 years has not been determined. Clinical correlation is essential. Serum or plasma urea nitroge n measurement (mass/volume)Ordered By: Torey Huffman on 06-14-2023 Urea nitrogen [Mass/Vol] 13 mg/dL 7-18 [facility] Thin prep Papanicolaou smear with manual screeningOrdered By: Torey Huffman on 06-14-2023 Thin prep Papanicolaou smear with manual screening 4 5-15 [facility] Absolute lymphocyte countOrd ered By: Torey Huffman on 05-17-2023 Lymphocytes Auto (Unsp spec) [#/Vol] 2.30 10*3/uL 0.83-4.51 [facility] Automated lymphocyte count a s percentage of total leukocytesOrdered By: Torey Huffman on 05-17-2023 Lymphocytes/100 WBC Auto (Unsp spec) 36.7 % 19-41 [facility] Basophil percentageOrdered B y: Torey Huffman on 05-17-2023 Basophils/100 WBC (Bld) 0.3 % 0-1 [facility] Chloride [Moles/Vol] 104 mmol/L 98-107 [facility] Eosinophils/100 WBC (Bld) 4.5 % 0-5 [facility] Glucose [Mass/Vol] 88 mg/dL 74-106 [facility] Hemoglobin (Bld) [Mass/Vol] 11.2 g/dL 13.0-16.5 [facility] Monocytes/100 WBC (Bld) 8.1 % 0-10 [facility] Neutrophils (Bld) [#/Vol] 3.1 10*3/uL 2.0-7.7 [facility] Neutrophils/100 WBC (Bld) 50.1 % 47-70 [facility] Potassium [Moles/Vol] 4.0 mmol/L 3.5-5.1 [facility] Sodium [Moles/Vol] 139 mmol/L 136-145 [facility] WBC (Bld) [#/Vol] 6.3 10*3/uL 4.4-11.0 [facility] Determination of erythrocyte mean corpuscular volume (MCV)Ordered By: Torey Huffman on 05-17-2023 MCV (RBC) [Entitic vol] 84.5 fL 80-94 [facility] Erythrocyte distribution wid th ratioOrdered By: Torey Huffman on 05-17-2023 Erythrocyte distribution width (RBC) [Ratio] 14.6 % 11.6-14.6 [facility] Erythrocyte distribution wid th standard deviationOrdered By: Torey Huffman on 05-17-2023 Erythrocyte distribution width (RBC) [Entitic vol] 45.0 fL 35.1-43.9 [facility] Hematocrit Auto (Bld) [Volum e fraction]Ordered By: Torey Huffman on 05-17-2023 Hematocrit (Bld) [Volume fraction] 36.6 % 40-54 [facility] Immature granulocytes/100 WB C Auto (Bld)Ordered By: Torey Huffman on 05-17-2023 Immature granulocytes/100 WBC (Bld) 0.300 % 0.0-0.9 [facility] Comment on above: IG% - Immature Granu locytes (promyelocytes, myelocytes and metamyelocytes) > 1% indicates that a LEFT SHIFT is Present. Laboratory - Chemistry and C hemistry - challengeOrdered By: Torey Huffman on 05-17-2023 CO2 [Moles/Vol] 31.0 mmol/L 21.0-32.0 [facility] Urea nitrogen/Creatinine [Mass ratio] 45.9 mg/mg 10-20 [facility] Laboratory - Hematology and Cell countsOrdered By: Torey Huffman on 05-17-2023 MCH (RBC) [Entitic mass] 25.9 pg 27.0-32.0 [facility] MCHC (RBC) [Mass/Vol] 30.6 g/dL 32-36 [facility] Nucleated RBC/100 WBC (Bld) [Ratio] 0 % 0-5 [facility] Platelet mean volume (Bld) [Entitic vol] 10.8 fL 6.2-12.0 [facility] Platelets (Bld) [#/Vol] 206 10*3/uL 150-450 [facility] No Panel InformationOrdered By: Torey Huffman on 05-17-2023 Estimated GFR (MDRD) Amer 416 mL/min >60 [facility] Comment on above: GFR Calc Estimated GFR (MDRD) Non-Af Amer 344 mL/min >60 [facility] Comment on above: Non- GFR Calc RBC Auto (Bld) [#/Vol]Ordere d By: Torey Huffman on 05-17-2023 RBC (Bld) [#/Vol] 4.33 10*6/uL 4.6-6.2 [facility] Serum or plasma calcium jacinta urement (mass/volume)Ordered By: Torey Huffman on 05-17-2023 Calcium [Mass/Vol] 8.6 mg/dL 8.5-10.1 [facility] Serum or plasma creatinine m easurement (mass/volume)Ordered By: Torey Huffman on 05-17-2023 Creatinine [Mass/Vol] 0.30 mg/dL 0.70-1.30 [facility] Comment on above: The validity of the calculated GFR & GFRAA in patients over 70 years has not been determined. Clinical correlation is essential. Serum or plasma urea nitroge n measurement (mass/volume)Ordered By: Torey Huffman on 05-17-2023 Urea nitrogen [Mass/Vol] 14 mg/dL 7-18 [facility] Thin prep Papanicolaou smear with manual screeningOrdered By: Torey Huffman on 05-17-2023 Thin prep Papanicolaou smear with manual screening 4 5-15 [facility] Absolute lymphocyte countOrd ered By: Torey Huffman on 04-19-2023 Lymphocytes Auto (Unsp spec) [#/Vol] 2.37 10*3/uL 0.83-4.51 [facility] Automated lymphocyte count a s percentage of total leukocytesOrdered By: Torey Huffman on 04-19-2023 Lymphocytes/100 WBC Auto (Unsp spec) 31.8 % 19-41 [facility] Basophil percentageOrdered B y: Torey Huffman on 04-19-2023 Basophils/100 WBC (Bld) 0.4 % 0-1 [facility] Chloride [Moles/Vol] 105 mmol/L 98-107 [facility] Eosinophils/100 WBC (Bld) 5.0 % 0-5 [facility] Glucose [Mass/Vol] 102 mg/dL 74-106 [facility] Comment on above: Fasting Glucose resu lt from 100 to 125 mg/dL suggests IMPAIRED HOMEOSTASIS per A.D.A. criteria. Hemoglobin (Bld) [Mass/Vol] 11.4 g/dL 13.0-16.5 [facility] Monocytes/100 WBC (Bld) 9.4 % 0-10 [facility] Neutrophils (Bld) [#/Vol] 4.0 10*3/uL 2.0-7.7 [facility] Neutrophils/100 WBC (Bld) 53.0 % 47-70 [facility] Potassium [Moles/Vol] 4.1 mmol/L 3.5-5.1 [facility] Sodium [Moles/Vol] 138 mmol/L 136-145 [facility] WBC (Bld) [#/Vol] 7.5 10*3/uL 4.4-11.0 [facility] Determination of erythrocyte mean corpuscular volume (MCV)Ordered By: Torey Huffman on 04-19-2023 MCV (RBC) [Entitic vol] 84.7 fL 80-94 [facility] Erythrocyte distribution wid th ratioOrdered By: Torey Huffman on 04-19-2023 Erythrocyte distribution width (RBC) [Ratio] 14.8 % 11.6-14.6 [facility] Erythrocyte distribution wid th standard deviationOrdered By: Torey Huffman on 04-19-2023 Erythrocyte distribution width (RBC) [Entitic vol] 45.9 fL 35.1-43.9 [facility] Hematocrit Auto (Bld) [Volum e fraction]Ordered By: Torey Huffman on 04-19-2023 Hematocrit (Bld) [Volume fraction] 37.2 % 40-54 [facility] Immature granulocytes/100 WB C Auto (Bld)Ordered By: Torey Huffman on 04-19-2023 Immature granulocytes/100 WBC (Bld) 0.400 % 0.0-0.9 [facility] Comment on above: IG% - Immature Granu locytes (promyelocytes, myelocytes and metamyelocytes) > 1% indicates that a LEFT SHIFT is Present. Laboratory - Chemistry and C hemistry - challengeOrdered By: Torey Huffman on 04-19-2023 CO2 [Moles/Vol] 28.0 mmol/L 21.0-32.0 [facility] Urea nitrogen/Creatinine [Mass ratio] 58.3 mg/mg 10-20 [facility] Laboratory - Hematology and Cell countsOrdered By: Torey Huffman on 04-19-2023 MCH (RBC) [Entitic mass] 26.0 pg 27.0-32.0 [facility] MCHC (RBC) [Mass/Vol] 30.6 g/dL 32-36 [facility] Nucleated RBC/100 WBC (Bld) [Ratio] 0 % 0-5 [facility] Platelet mean volume (Bld) [Entitic vol] 10.4 fL 6.2-12.0 [facility] Platelets (Bld) [#/Vol] 198 10*3/uL 150-450 [facility] No Panel InformationOrdered By: Torey Huffman on 04-19-2023 Estimated GFR (MDRD) Amer 410 mL/min >60 [facility] Comment on above: GFR Calc Estimated GFR (MDRD) Non-Af Amer 339 mL/min >60 [facility] Comment on above: Non- GFR Calc RBC Auto (Bld) [#/Vol]Ordere d By: Torey Huffman on 04-19-2023 RBC (Bld) [#/Vol] 4.39 10*6/uL 4.6-6.2 [facility] Serum or plasma calcium jacinta urement (mass/volume)Ordered By: Torey Huffman on 04-19-2023 Calcium [Mass/Vol] 8.8 mg/dL 8.5-10.1 [facility] Serum or plasma creatinine m easurement (mass/volume)Ordered By: Torey Huffman on 04-19-2023 Creatinine [Mass/Vol] 0.31 mg/dL 0.70-1.30 [facility] Comment on above: The validity of the calculated GFR & GFRAA in patients over 70 years has not been determined. Clinical correlation is essential. Serum or plasma urea nitroge n measurement (mass/volume)Ordered By: Torey Huffman on 04-19-2023 Urea nitrogen [Mass/Vol] 18 mg/dL 7-18 [facility] Thin prep Papanicolaou smear with manual screeningOrdered By: Torey Huffman on 04-19-2023 Thin prep Papanicolaou smear with manual screening 5 5-15 [facility] Absolute lymphocyte countOrd ered By: Anthony Russell on 04-13-2023 Lymphocytes Auto (Unsp spec) [#/Vol] 3.45 10*3/uL 0.83-4.51 [facility] Activated partial thrombopla stin time (aPTT) in platelet poor plasma by coagulation aOrdered By: Anthony Russell on 04-13-2023 aPTT Coag (PPP) [Time] 25.7 s 24.1-36.2 [facility] Automated lymphocyte count a s percentage of total leukocytesOrdered By: Anthony Russell on 04-13-2023 Lymphocytes/100 WBC Auto (Unsp spec) 43.5 % 19-41 [facility] Basophil percentageOrdered B y: Anthony Russell on 04-13-2023 Basophils/100 WBC (Bld) 0.5 % 0-1 [facility] Chloride [Moles/Vol] 103 mmol/L 98-107 [facility] Eosinophils/100 WBC (Bld) 3.7 % 0-5 [facility] Glucose [Mass/Vol] 116 mg/dL 74-106 [facility] Comment on above: Fasting Glucose resu lt from 100 to 125 mg/dL suggests IMPAIRED HOMEOSTASIS per A.D.A. criteria. Hemoglobin (Bld) [Mass/Vol] 12.4 g/dL 13.0-16.5 [facility] Monocytes/100 WBC (Bld) 7.8 % 0-10 [facility] Neutrophils (Bld) [#/Vol] 3.5 10*3/uL 2.0-7.7 [facility] Neutrophils/100 WBC (Bld) 44.2 % 47-70 [facility] Potassium [Moles/Vol] 4.0 mmol/L 3.5-5.1 [facility] Sodium [Moles/Vol] 137 mmol/L 136-145 [facility] WBC (Bld) [#/Vol] 7.9 10*3/uL 4.4-11.0 [facility] Determination of erythrocyte mean corpuscular volume (MCV)Ordered By: Anthony Russell on 04-13-2023 MCV (RBC) [Entitic vol] 82.9 fL 80-94 [facility] Erythrocyte distribution wid th ratioOrdered By: Anthony Russell on 04-13-2023 Erythrocyte distribution width (RBC) [Ratio] 14.9 % 11.6-14.6 [facility] [facility] Erythrocyte distribution wid th standard deviationOrdered By: Anthony Russell on 04-13-2023 Erythrocyte distribution width (RBC) [Entitic vol] 44.8 fL 35.1-43.9 [facility] Hematocrit Auto (Bld) [Volum e fraction]Ordered By: Anthony Russell on 04-13-2023 Hematocrit (Bld) [Volume fraction] 40.2 % 40-54 [facility] Immature granulocytes/100 WB C Auto (Bld)Ordered By: Anthony Russell on 04-13-2023 Immature granulocytes/100 WBC (Bld) 0.300 % 0.0-0.9 [facility] Comment on above: IG% - Immature Granu locytes (promyelocytes, myelocytes and metamyelocytes) > 1% indicates that a LEFT SHIFT is Present. Laboratory - Chemistry and C hemistry - challengeOrdered By: Anthony Russell on 04-13-2023 CO2 [Moles/Vol] 24.0 mmol/L 21.0-32.0 [facility] Urea nitrogen/Creatinine [Mass ratio] 39.7 mg/mg 10-20 [facility] Laboratory - CoagulationOrde red By: Anthony Russell on 04-13-2023 INR Coag (Bld) [Relative time] 1.0 {INR} [facility] PT Coag (PPP) [Time] 13.3 s 11.7-14.9 [facility] Laboratory - Hematology and Cell countsOrdered By: Anthony Russell on 04-13-2023 MCH (RBC) [Entitic mass] 25.6 pg 27.0-32.0 [facility] MCHC (RBC) [Mass/Vol] 30.8 g/dL 32-36 [facility] Nucleated RBC/100 WBC (Bld) [Ratio] 0 % 0-5 [facility] Platelet mean volume (Bld) [Entitic vol] 10.2 fL 6.2-12.0 [facility] Platelets (Bld) [#/Vol] 216 10*3/uL 150-450 [facility] No Panel InformationOrdered By: Anthony Russell on 04-13-2023 D-Dimer Quantitative (PE/DVT) < 0.27 FEU/ug/m 0.27-0.49 [facility] Comment on above: NORMAL D-Dimer level (<0.50) indicates no DVT or PE. Estimated Creatinine Clearance Calc 176.92 ml/min [facility] Estimated GFR (MDRD) Amer 248 mL/min >60 [facility] Comment on above: GFR Calc Estimated GFR (MDRD) Non-Af Amer 205 mL/min >60 [facility] Comment on above: Non- GFR Calc Troponin I High Sensitivity < 3 pg/mL 3.0-78.0 [facility] Comment on above: Please Note: New Suha t Units and Gender Specific Reference Ranges. For more information see Policy Stat Procedure Horner High Sensitivity Troponin (TNIH) and attachments. RBC Auto (Bld) [#/Vol]Ordere d By: Anthony Russell on 04-13-2023 RBC (Bld) [#/Vol] 4.85 10*6/uL 4.6-6.2 [facility] Serum or plasma calcium jacinta urement (mass/volume)Ordered By: Anthony Russell on 04-13-2023 Calcium [Mass/Vol] 9.2 mg/dL 8.5-10.1 [facility] Serum or plasma creatinine m easurement (mass/volume)Ordered By: Anthony Russell on 04-13-2023 Creatinine [Mass/Vol] 0.48 mg/dL 0.70-1.30 [facility] Comment on above: The validity of the calculated GFR & GFRAA in patients over 70 years has not been determined. Clinical correlation is essential. Serum or plasma urea nitroge n measurement (mass/volume)Ordered By: Anthony Russell on 04-13-2023 Urea nitrogen [Mass/Vol] 19 mg/dL 7-18 [facility] Thin prep Papanicolaou smear with manual screeningOrdered By: Anthony Russell on 04-13-2023 Thin prep Papanicolaou smear with manual screening 10 5-15 [facility] Absolute lymphocyte countOrd ered By: Lucia Dillard on 03-24-2023 Lymphocytes Auto (Unsp spec) [#/Vol] 1.76 10*3/uL 0.83-4.51 [facility] Automated lymphocyte count a s percentage of total leukocytesOrdered By: Lucia Dillard on 03-24-2023 Lymphocytes/100 WBC Auto (Unsp spec) 25.6 % 19-41 [facility] Basophil percentageOrdered B y: Lucia Dillard on 03-24-2023 Basophil percentage 10.8 g/dL 13.0-16.5 [facility] Basophil percentage 91 mg/dL 74-106 [facility] Basophil percentage 7.5 g/dL 6.4-8.2 [facility] Basophil percentage 0.30 mg/dL 0.20-1.00 [facility] Basophil percentage 137 mmol/L 136-145 [facility] Basophil percentage 3.6 mmol/L 3.5-5.1 [facility] Basophil percentage 106 mmol/L 98-107 [facility] Basophils (Bld) [#/Vol] 6.9 10*3/uL 4.4-11.0 [facility] Basophils (Bld) [#/Vol] 4.3 10*3/uL 2.0-7.7 [facility] Basophils/100 WBC (Bld) 62.2 % 47-70 [facility] Basophils/100 WBC (Bld) 8.9 % 0-10 [facility] Basophils/100 WBC (Bld) 2.9 % 0-5 [facility] Basophils/100 WBC (Bld) 0.3 % 0-1 [facility] Bilirubin [Mass/Vol] 0.30 mg/dL 0.20-1.00 [facility] Comment on above: For patients on eltr ombopag therapy, use of Dimension Horner TBIL is not recommended. Chloride [Moles/Vol] 106 mmol/L 98-107 [facility] Eosinophils/100 WBC (Bld) 2.9 % 0-5 [facility] Glucose [Mass/Vol] 91 mg/dL 74-106 [facility] Hemoglobin (Bld) [Mass/Vol] 10.8 g/dL 13.0-16.5 [facility] Monocytes/100 WBC (Bld) 8.9 % 0-10 [facility] Neutrophils (Bld) [#/Vol] 4.3 10*3/uL 2.0-7.7 [facility] Neutrophils/100 WBC (Bld) 62.2 % 47-70 [facility] Potassium [Moles/Vol] 3.6 mmol/L 3.5-5.1 [facility] Protein [Mass/Vol] 7.5 g/dL 6.4-8.2 [facility] Sodium [Moles/Vol] 137 mmol/L 136-145 [facility] WBC (Bld) [#/Vol] 6.9 10*3/uL 4.4-11.0 [facility] Basophil percentageOrdered B y: Dominic Méndez on 03-24-2023 Basophil percentage 0.5 mmol/L 0.4-2.0 [facility] Lactate [Moles/Vol] 0.5 mmol/L 0.4-2.0 [facility] Determination of erythrocyte mean corpuscular volume (MCV)Ordered By: Lucia Dillard on 03-24-2023 MCV (RBC) [Entitic vol] 84.4 fL 80-94 [facility] Erythrocyte distribution wid th ratioOrdered By: Lucia Dillard on 03-24-2023 Erythrocyte distribution width (RBC) [Ratio] 14.9 % 11.6-14.6 [facility] Erythrocyte distribution wid th standard deviationOrdered By: Lucia Dillard on 03-24-2023 Erythrocyte distribution width (RBC) [Entitic vol] 46.0 fL 35.1-43.9 [facility] Hematocrit Auto (Bld) [Volum e fraction]Ordered By: Lucia Dillard on 03-24-2023 Hematocrit (Bld) [Volume fraction] 35.2 % 40-54 [facility] Immature granulocytes/100 WB C Auto (Bld)Ordered By: Lucia Dillard on 03-24-2023 Immature granulocytes/100 WBC (Bld) 0.100 % 0.0-0.9 [facility] Comment on above: IG% - Immature Granu locytes (promyelocytes, myelocytes and metamyelocytes) > 1% indicates that a LEFT SHIFT is Present. Laboratory - Chemistry and C hemistry - challengeOrdered By: Lucia Dillard on 03-24-2023 Albumin/Globulin [Mass ratio] 0.7 {ratio} 0.9-2.4 [facility] ALP [Catalytic activity/Vol] 153 U/L 45-117 [facility] ALT [Catalytic activity/Vol] 25 U/L 16-61 [facility] CO2 [Moles/Vol] 29.0 mmol/L 21.0-32.0 [facility] Globulin (S) [Mass/Vol] 4.4 g/dL 2.2-4.2 [facility] Urea nitrogen/Creatinine [Mass ratio] 74.7 mg/mg 10-20 [facility] Laboratory - Hematology and Cell countsOrdered By: Lucia Dillard on 03-24-2023 MCH (RBC) [Entitic mass] 25.9 pg 27.0-32.0 [facility] MCHC (RBC) [Mass/Vol] 30.7 g/dL 32-36 [facility] Nucleated RBC/100 WBC (Bld) [Ratio] 0 % 0-5 [facility] Platelets (Bld) [#/Vol] 181 10*3/uL 150-450 [facility] No Panel InformationOrdered By: Lucia Dillard on 03-24-2023 Estimated Creatinine Clearance Calc 351.31 ml/min [facility] Estimated GFR (MDRD) Amer 547 mL/min >60 [facility] Comment on above: GFR Calc Estimated GFR (MDRD) Non-Af Amer 452 mL/min >60 [facility] Comment on above: Non- GFR Calc 25.9 pg 27.0-32.0 [facility] 30.7 g/dL 32-36 [facility] 181 K/mm3 150-450 [facility] 0 % 0-5 [facility] 452 mL/min >60 [facility] 547 mL/min >60 [facility] 351.31 ml/min [facility] 74.7 RATIO 10-20 [facility] 4.4 g/dL 2.2-4.2 [facility] 0.7 RATIO 0.9-2.4 [facility] 153 U/L 45-117 [facility] 25 U/L 16-61 [facility] 29.0 mmol/L 21.0-32.0 [facility] Platelet mean volume Jm-Ec ker (Bld) [Entitic vol]Ordered By: Lucia Dillard on 03-24-2023 Platelet mean volume (Bld) [Entitic vol] 10.4 fL 6.2-12.0 [facility] RBC Auto (Bld) [#/Vol]Ordere d By: Lucia Dillard on 03-24-2023 RBC (Bld) [#/Vol] 4.17 10*6/uL 4.6-6.2 [facility] Serum or plasma calcium jacinta urement (mass/volume)Ordered By: Lucia Dillard on 03-24-2023 Calcium [Mass/Vol] 8.2 mg/dL 8.5-10.1 [facility] Serum or plasma creatinine m easurement (mass/volume)Ordered By: Lucia Dillard on 03-24-2023 Creatinine [Mass/Vol] 0.24 mg/dL 0.70-1.30 [facility] Comment on above: The validity of the calculated GFR & GFRAA in patients over 70 years has not been determined. Clinical correlation is essential. Serum or plasma urea nitroge n measurement (mass/volume)Ordered By: Lucia Dillard on 03-24-2023 Urea nitrogen [Mass/Vol] 18 mg/dL 7-18 [facility] Thin prep Papanicolaou smear with manual screeningOrdered By: Lucia Dillard on 03-24-2023 Thin prep Papanicolaou smear with manual screening 3.1 g/dL 3.2-5.0 [facility] Thin prep Papanicolaou smear with manual screening 14 U/L 15-37 [facility] Thin prep Papanicolaou smear with manual screening 2 5-15 [facility] Absolute lymphocyte countOrd ered By: Dominic Méndez on 03-23-2023 Lymphocytes Auto (Unsp spec) [#/Vol] 2.81 10*3/uL 0.83-4.51 [facility] Activated partial thrombopla stin time (aPTT) in platelet poor plasma by coagulation aOrdered By: Dominic Méndez on 03-23-2023 aPTT Coag (PPP) [Time] 31.1 s 24.1-36.2 [facility] Automated lymphocyte count a s percentage of total leukocytesOrdered By: Dominic Méndez on 03-23-2023 Lymphocytes/100 WBC Auto (Unsp spec) 21.7 % 19-41 [facility] Basophil percentageOrdered B y: Dominic Méndez on 03-23-2023 Bilirubin [Mass/Vol] 0.20 mg/dL 0.20-1.00 [facility] Comment on above: For patients on eltr ombopag therapy, use of Dimension Horner TBIL is not recommended. Chloride [Moles/Vol] 104 mmol/L 98-107 [facility] Glucose [Mass/Vol] 123 mg/dL 74-106 [facility] Comment on above: Fasting Glucose resu lt from 100 to 125 mg/dL suggests IMPAIRED HOMEOSTASIS per A.D.A. criteria. Potassium [Moles/Vol] 3.7 mmol/L 3.5-5.1 [facility] Protein [Mass/Vol] 8.8 g/dL 6.4-8.2 [facility] Sodium [Moles/Vol] 135 mmol/L 136-145 [facility] Basophils/100 WBC (Bld) 0.2 % 0-1 [facility] Eosinophils/100 WBC (Bld) 2.0 % 0-5 [facility] Hemoglobin (Bld) [Mass/Vol] 13.1 g/dL 13.0-16.5 [facility] Lactate [Moles/Vol] 5.3 mmol/L 0.4-2.0 [facility] Comment on above: Critical Result(s) C alled at: 13:12:15 03/23/2023 by: Moraima Simmons. Results read back by same. Monocytes/100 WBC (Bld) 5.1 % 0-10 [facility] Neutrophils (Bld) [#/Vol] 9.1 10*3/uL 2.0-7.7 [facility] Neutrophils/100 WBC (Bld) 70.6 % 47-70 [facility] WBC (Bld) [#/Vol] 13.0 10*3/uL 4.4-11.0 [facility] Culture, urineOrdered By: Champ Méndez on 03-23-2023 Bacteria identified Cx Nom (U) Culture exhibits no growth. [facility] Bacteria identified Cx Nom (U) Culture exhibits no growth. [facility] Determination of erythrocyte mean corpuscular volume (MCV)Ordered By: Dominic Méndez on 03-23-2023 MCV (RBC) [Entitic vol] 83.2 fL 80-94 [facility] Erythrocyte distribution wid th ratioOrdered By: Dominic Méndez on 03-23-2023 Erythrocyte distribution width (RBC) [Ratio] 14.8 % 11.6-14.6 [facility] Erythrocyte distribution wid th standard deviationOrdered By: Dominic Méndez on 03-23-2023 Erythrocyte distribution width (RBC) [Entitic vol] 45.1 fL 35.1-43.9 [facility] Hematocrit Auto (Bld) [Volum e fraction]Ordered By: Dominic Méndez on 03-23-2023 Hematocrit (Bld) [Volume fraction] 42.2 % 40-54 [facility] Immature granulocytes/100 WB C Auto (Bld)Ordered By: Dominic Méndez on 03-23-2023 Immature granulocytes/100 WBC (Bld) 0.400 % 0.0-0.9 [facility] Comment on above: IG% - Immature Granu locytes (promyelocytes, myelocytes and metamyelocytes) > 1% indicates that a LEFT SHIFT is Present. International normalized rat io (INR) calculationOrdered By: Dominic Méndez on 03-23-2023 INR Coag (PPP) [Relative time] 1.0 {INR} [facility] Laboratory - Chemistry and C hemistry - challengeOrdered By: Dominic Méndez on 03-23-2023 Albumin/Globulin [Mass ratio] 0.7 {ratio} 0.9-2.4 [facility] ALP [Catalytic activity/Vol] 169 U/L 45-117 [facility] ALT [Catalytic activity/Vol] 29 U/L 16-61 [facility] CO2 [Moles/Vol] 26.0 mmol/L 21.0-32.0 [facility] Globulin (S) [Mass/Vol] 5.2 g/dL 2.2-4.2 [facility] Urea nitrogen/Creatinine [Mass ratio] 46.1 mg/mg 10-20 [facility] Laboratory - CoagulationOrde red By: Dominic Méndez on 03-23-2023 PT Coag (PPP) [Time] 12.9 s 11.7-14.9 [facility] Laboratory - Hematology and Cell countsOrdered By: Dominic Méndez on 03-23-2023 MCH (RBC) [Entitic mass] 25.8 pg 27.0-32.0 [facility] MCHC (RBC) [Mass/Vol] 31.0 g/dL 32-36 [facility] Nucleated RBC/100 WBC (Bld) [Ratio] 0 % 0-5 [facility] Platelets (Bld) [#/Vol] 229 10*3/uL 150-450 [facility] Laboratory - Microbiology an d Antimicrobial susceptibilityOrdered By: Dominic Méndez on 03-23-2023 Bacteria identified Cx Nom (Bld) No growth in 5 days. [facility] Bacteria identified Cx Nom (Bld) No growth in 5 days. [facility] No Panel InformationOrdered By: Dominic Méndez on 03-23-2023 Estimated Creatinine Clearance Calc 186.40 ml/min [facility] Estimated GFR (MDRD) Amer 262 mL/min >60 [facility] Comment on above: GFR Calc Estimated GFR (MDRD) Non-Af Amer 217 mL/min >60 [facility] Comment on above: Non- GFR Calc 12.9 SECONDS 11.7-14.9 [facility] Platelet mean volume Jm-Ec ker (Bld) [Entitic vol]Ordered By: Dominic Méndez on 03-23-2023 Platelet mean volume (Bld) [Entitic vol] 10.1 fL 6.2-12.0 [facility] RBC Auto (Bld) [#/Vol]Ordere d By: Dominic Méndez on 03-23-2023 RBC (Bld) [#/Vol] 5.07 10*6/uL 4.6-6.2 [facility] Respiratory pathogens detect ion panel by molecular detection methodOrdered By: Dominic Méndez on 03-23-2023 Respiratory pathogens DNA and RNA panel YAYO+probe (Resp) [facility] Respiratory pathogens DNA and RNA panel YAYO+probe (Resp) [facility] Serum or plasma calcium jacinta urement (mass/volume)Ordered By: Dominic Méndez on 03-23-2023 Calcium [Mass/Vol] 8.8 mg/dL 8.5-10.1 [facility] Serum or plasma creatinine m easurement (mass/volume)Ordered By: Dominic Méndez on 03-23-2023 Creatinine [Mass/Vol] 0.46 mg/dL 0.70-1.30 [facility] Comment on above: The validity of the calculated GFR & GFRAA in patients over 70 years has not been determined. Clinical correlation is essential. Serum or plasma urea nitroge n measurement (mass/volume)Ordered By: Dominic Méndez on 03-23-2023 Urea nitrogen [Mass/Vol] 21 mg/dL 7-18 [facility] Thin prep Papanicolaou smear with manual screeningOrdered By: Dominic Méndez on 03-23-2023 Thin prep Papanicolaou smear with manual screening 3.6 g/dL 3.2-5.0 [facility] Thin prep Papanicolaou smear with manual screening 16 U/L 15-37 [facility] Thin prep Papanicolaou smear with manual screening 5 5-15 [facility] Absolute lymphocyte countOrd ered By: Torey Huffman on 03-01-2023 Lymphocytes Auto (Unsp spec) [#/Vol] 2.53 10*3/uL 0.83-4.51 [facility] Basophil percentageOrdered B y: Torey Huffman on 03-01-2023 Basophil percentage 93 mg/dL 74-106 [facility] Basophil percentage 140 mmol/L 136-145 [facility] Basophil percentage 3.8 mmol/L 3.5-5.1 [facility] Basophil percentage 105 mmol/L 98-107 [facility] Basophils (Bld) [#/Vol] 7.0 10*3/uL 4.4-11.0 [facility] Basophils (Bld) [#/Vol] 3.5 10*3/uL 2.0-7.7 [facility] Basophils/100 WBC (Bld) 0.3 % 0-1 [facility] Basophils/100 WBC (Bld) 49.5 % 47-70 [facility] Basophils/100 WBC (Bld) 4.9 % 0-5 [facility] Chloride [Moles/Vol] 105 mmol/L 98-107 [facility] Eosinophils/100 WBC (Bld) 4.9 % 0-5 [facility] Glucose [Mass/Vol] 93 mg/dL 74-106 [facility] Neutrophils (Bld) [#/Vol] 3.5 10*3/uL 2.0-7.7 [facility] Neutrophils/100 WBC (Bld) 49.5 % 47-70 [facility] Potassium [Moles/Vol] 3.8 mmol/L 3.5-5.1 [facility] Sodium [Moles/Vol] 140 mmol/L 136-145 [facility] WBC (Bld) [#/Vol] 7.0 10*3/uL 4.4-11.0 [facility] Blood erythrocytes count (nu mber/volume)Ordered By: Torey Huffman on 03-01-2023 RBC (Bld) [#/Vol] 4.30 10*6/uL 4.6-6.2 [facility] Blood hemoglobin measurement (mass/volume)Ordered By: Torey Huffman on 03-01-2023 Hemoglobin (Bld) [Mass/Vol] 11.1 g/dL 13.0-16.5 [facility] Blood lymphocytes/100 leukoc ytesOrdered By: Torey Huffman on 03-01-2023 Lymphocytes/100 WBC (Bld) 36.3 % 19-41 [facility] Blood monocytes/100 leukocyt esOrdered By: Torey Huffman on 03-01-2023 Monocytes/100 WBC (Bld) 8.9 % 0-10 [facility] Blood platelet mean volumeOr dered By: Torey Huffman on 03-01-2023 Platelet mean volume (Bld) [Entitic vol] 11.0 fL 6.2-12.0 [facility] Determination of erythrocyte mean corpuscular volume (MCV)Ordered By: Torey Huffman on 03-01-2023 MCV (RBC) [Entitic vol] 83.5 fL 80-94 [facility] Hematocrit Auto (Bld) [Volum e fraction]Ordered By: Torey Huffman on 03-01-2023 Hematocrit (Bld) [Volume fraction] 35.9 % 40-54 [facility] Laboratory - Chemistry and C hemistry - challengeOrdered By: Torey Huffman on 03-01-2023 CO2 [Moles/Vol] 28.0 mmol/L 21.0-32.0 [facility] Urea nitrogen/Creatinine [Mass ratio] 60.6 mg/mg 10-20 [facility] Laboratory - Hematology and Cell countsOrdered By: Torey Huffman on 03-01-2023 Erythrocyte distribution width (RBC) [Entitic vol] 44.3 fL 35.1-43.9 [facility] Erythrocyte distribution width (RBC) [Ratio] 14.6 % 11.6-14.6 [facility] Immature granulocytes/100 WBC (Bld) 0.100 % 0.0-0.9 [facility] Comment on above: IG% - Immature Granu locytes (promyelocytes, myelocytes and metamyelocytes) > 1% indicates that a LEFT SHIFT is Present. MCH (RBC) [Entitic mass] 25.8 pg 27.0-32.0 [facility] Nucleated RBC/100 WBC (Bld) [Ratio] 0 % 0-5 [facility] MCHC Auto (RBC) [Mass/Vol]Or dered By: Torey Huffman on 03-01-2023 MCHC (RBC) [Mass/Vol] 30.9 g/dL 32-36 [facility] No Panel InformationOrdered By: Torey Huffman on 03-01-2023 Estimated GFR (MDRD) Amer 308 mL/min >60 [facility] Comment on above: GFR Calc Estimated GFR (MDRD) Non-Af Amer 255 mL/min >60 [facility] Comment on above: Non- GFR Calc 25.8 pg 27.0-32.0 [facility] 14.6 % 11.6-14.6 [facility] 44.3 fl 35.1-43.9 [facility] 0.100 % 0.0-0.9 [facility] 0 % 0-5 [facility] 255 mL/min >60 [facility] 308 mL/min >60 [facility] 60.6 RATIO 10-20 [facility] 28.0 mmol/L 21.0-32.0 [facility] Platelets bldOrdered By: Mellissa Huffman on 03-01-2023 Platelets (Bld) [#/Vol] 202 10*3/uL 150-450 [facility] Serum or plasma calcium jacinta urement (mass/volume)Ordered By: Torey Huffman on 03-01-2023 Calcium [Mass/Vol] 8.7 mg/dL 8.5-10.1 [facility] Serum or plasma creatinine m easurement (mass/volume)Ordered By: Torey Huffman on 03-01-2023 Creatinine [Mass/Vol] 0.40 mg/dL 0.70-1.30 [facility] Comment on above: The validity of the calculated GFR & GFRAA in patients over 70 years has not been determined. Clinical correlation is essential. Serum or plasma urea nitroge n measurement (mass/volume)Ordered By: Torey Huffman on 03-01-2023 Urea nitrogen [Mass/Vol] 24 mg/dL 7-18 [facility] Thin prep Papanicolaou smear with manual screeningOrdered By: Torey Huffman on 03-01-2023 Thin prep Papanicolaou smear with manual screening 7 5-15 [facility] Absolute lymphocyte countOrd ered By: Torey Huffman on 02-03-2023 Lymphocytes Auto (Unsp spec) [#/Vol] 2.02 10*3/uL 0.83-4.51 [facility] Basophil percentageOrdered B y: Torey Huffman on 02-03-2023 Basophil percentage 103 mg/dL 74-106 [facility] Basophil percentage 139 mmol/L 136-145 [facility] Basophil percentage 3.7 mmol/L 3.5-5.1 [facility] Basophil percentage 105 mmol/L 98-107 [facility] Basophils (Bld) [#/Vol] 5.9 10*3/uL 4.4-11.0 [facility] Basophils (Bld) [#/Vol] 3.0 10*3/uL 2.0-7.7 [facility] Basophils/100 WBC (Bld) 0.3 % 0-1 [facility] Basophils/100 WBC (Bld) 50.5 % 47-70 [facility] Basophils/100 WBC (Bld) 5.6 % 0-5 [facility] Chloride [Moles/Vol] 105 mmol/L 98-107 [facility] Eosinophils/100 WBC (Bld) 5.6 % 0-5 [facility] Glucose [Mass/Vol] 103 mg/dL 74-106 [facility] Comment on above: Fasting Glucose resu lt from 100 to 125 mg/dL suggests IMPAIRED HOMEOSTASIS per A.D.A. criteria. Neutrophils (Bld) [#/Vol] 3.0 10*3/uL 2.0-7.7 [facility] Neutrophils/100 WBC (Bld) 50.5 % 47-70 [facility] Potassium [Moles/Vol] 3.7 mmol/L 3.5-5.1 [facility] Sodium [Moles/Vol] 139 mmol/L 136-145 [facility] WBC (Bld) [#/Vol] 5.9 10*3/uL 4.4-11.0 [facility] Blood erythrocytes count (nu mber/volume)Ordered By: Torey Huffman on 02-03-2023 RBC (Bld) [#/Vol] 3.99 10*6/uL 4.6-6.2 [facility] Blood hemoglobin measurement (mass/volume)Ordered By: Torey Huffman on 02-03-2023 Hemoglobin (Bld) [Mass/Vol] 10.3 g/dL 13.0-16.5 [facility] Blood lymphocytes/100 leukoc ytesOrdered By: Torey Huffman on 02-03-2023 Lymphocytes/100 WBC (Bld) 34.4 % 19-41 [facility] Blood monocytes/100 leukocyt esOrdered By: Torey Huffman on 02-03-2023 Monocytes/100 WBC (Bld) 9.0 % 0-10 [facility] Blood platelet mean volumeOr dered By: Torey Huffman on 02-03-2023 Platelet mean volume (Bld) [Entitic vol] 11.0 fL 6.2-12.0 [facility] Determination of erythrocyte mean corpuscular volume (MCV)Ordered By: Torey Huffman on 02-03-2023 MCV (RBC) [Entitic vol] 83.0 fL 80-94 [facility] Hematocrit Auto (Bld) [Volum e fraction]Ordered By: Torey Huffman on 02-03-2023 Hematocrit (Bld) [Volume fraction] 33.1 % 40-54 [facility] Laboratory - Chemistry and C hemistry - challengeOrdered By: Torey Huffman on 02-03-2023 CO2 [Moles/Vol] 30.0 mmol/L 21.0-32.0 [facility] Urea nitrogen/Creatinine [Mass ratio] 51.6 mg/mg 10-20 [facility] Laboratory - Hematology and Cell countsOrdered By: Torey Huffman on 02-03-2023 Erythrocyte distribution width (RBC) [Entitic vol] 43.8 fL 35.1-43.9 [facility] Erythrocyte distribution width (RBC) [Ratio] 14.4 % 11.6-14.6 [facility] Immature granulocytes/100 WBC (Bld) 0.200 % 0.0-0.9 [facility] Comment on above: IG% - Immature Granu locytes (promyelocytes, myelocytes and metamyelocytes) > 1% indicates that a LEFT SHIFT is Present. MCH (RBC) [Entitic mass] 25.8 pg 27.0-32.0 [facility] Nucleated RBC/100 WBC (Bld) [Ratio] 0 % 0-5 [facility] MCHC Auto (RBC) [Mass/Vol]Or dered By: Torey Huffman on 02-03-2023 MCHC (RBC) [Mass/Vol] 31.1 g/dL 32-36 [facility] No Panel InformationOrdered By: Torey Huffman on 02-03-2023 Estimated GFR (MDRD) Amer 409 mL/min >60 [facility] Comment on above: GFR Calc Estimated GFR (MDRD) Non-Af Amer 338 mL/min >60 [facility] Comment on above: Non- GFR Calc 25.8 pg 27.0-32.0 [facility] 14.4 % 11.6-14.6 [facility] 43.8 fl 35.1-43.9 [facility] 0.200 % 0.0-0.9 [facility] 0 % 0-5 [facility] 338 mL/min >60 [facility] 409 mL/min >60 [facility] 51.6 RATIO 10-20 [facility] 30.0 mmol/L 21.0-32.0 [facility] Platelets bldOrdered By: Mellissa Huffman on 02-03-2023 Platelets (Bld) [#/Vol] 172 10*3/uL 150-450 [facility] Serum or plasma calcium jacinta urement (mass/volume)Ordered By: Torey Huffman on 02-03-2023 Calcium [Mass/Vol] 8.4 mg/dL 8.5-10.1 [facility] Serum or plasma creatinine m easurement (mass/volume)Ordered By: Torey Huffman on 02-03-2023 Creatinine [Mass/Vol] 0.31 mg/dL 0.70-1.30 [facility] Comment on above: The validity of the calculated GFR & GFRAA in patients over 70 years has not been determined. Clinical correlation is essential. Serum or plasma urea nitroge n measurement (mass/volume)Ordered By: Torey Huffman on 02-03-2023 Urea nitrogen [Mass/Vol] 16 mg/dL 7-18 [facility] Thin prep Papanicolaou smear with manual screeningOrdered By: Torey Huffman on 02-03-2023 Thin prep Papanicolaou smear with manual screening 4 5-15 [facility] Absolute lymphocyte countOrd ered By: Amena Smith on 01-16-2023 Lymphocytes Auto (Unsp spec) [#/Vol] 1.47 10*3/uL 0.83-4.51 [facility] Basophil percentageOrdered B y: Amena Smith on 01-16-2023 Basophil percentage 0-5 SEEN /hpf 0-5 [facility] Basophil percentage 97 mg/dL 74-106 [facility] Basophil percentage 137 mmol/L 136-145 [facility] Basophil percentage 3.7 mmol/L 3.5-5.1 [facility] Basophil percentage 105 mmol/L 98-107 [facility] Basophil percentage 0.9 mmol/L 0.4-2.0 [facility] Basophils (Bld) [#/Vol] 8.7 10*3/uL 4.4-11.0 [facility] Basophils (Bld) [#/Vol] 6.6 10*3/uL 2.0-7.7 [facility] Basophils/100 WBC (Bld) 0.1 % 0-1 [facility] Basophils/100 WBC (Bld) 75.2 % 47-70 [facility] Basophils/100 WBC (Bld) 1.1 % 0-5 [facility] Chloride [Moles/Vol] 105 mmol/L 98-107 [facility] Eosin[facility]/100 WBC (Bld) 1.1 % 0-5 [facility] Glucose [Mass/Vol] 97 mg/dL 74-106 [facility] Lactate [Moles/Vol] 0.9 mmol/L 0.4-2.0 [facility] Neutrophils (Bld) [#/Vol] 6.6 10*3/uL 2.0-7.7 [facility] Neutrophils/100 WBC (Bld) 75.2 % 47-70 [facility] Potassium [Moles/Vol] 3.7 mmol/L 3.5-5.1 [facility] Sodium [Moles/Vol] 137 mmol/L 136-145 [facility] WBC (Bld) [#/Vol] 8.7 10*3/uL 4.4-11.0 [facility] Bilirubin Test strip Ql (U)O rdered By: Amena Smith on 01-16-2023 Bilirubin Ql (U) Negative Negative [facility] Blood erythrocytes count (nu mber/volume)Ordered By: Amena Smith on 01-16-2023 RBC (Bld) [#/Vol] 4.46 10*6/uL 4.6-6.2 [facility] Blood hemoglobin measurement (mass/volume)Ordered By: Amena Smith on 01-16-2023 Hemoglobin (Bld) [Mass/Vol] 11.6 g/dL 13.0-16.5 [facility] Blood lymphocytes/100 leukoc ytesOrdered By: Amena Smith on 01-16-2023 Lymphocytes/100 WBC (Bld) 16.8 % 19-41 [facility] Blood monocytes/100 leukocyt esOrdered By: Amena Smith on 01-16-2023 Monocytes/100 WBC (Bld) 6.5 % 0-10 [facility] Blood platelet mean volumeOr dered By: Amena Smith on 01-16-2023 Platelet mean volume (Bld) [Entitic vol] 10.2 fL 6.2-12.0 [facility] Culture, urineOrdered By: Елена Smith on 01-16-2023 Bacteria identified Cx Nom (U) Culture exhibits no growth. [facility] Determination of erythrocyte mean corpuscular volume (MCV)Ordered By: Amena Smith on 01-16-2023 MCV (RBC) [Entitic vol] 84.1 fL 80-94 [facility] Hematocrit Auto (Bld) [Volum e fraction]Ordered By: Amena Smtih on 01-16-2023 Hematocrit (Bld) [Volume fraction] 37.5 % 40-54 [facility] Influenza virus A and B and SARS-CoV-2 (COVID-19) Ag panel - Upper respiratory specimOrdered By: Amena Smith on 01-16-2023 SARS-CoV-2 (COVID-19) RNA YAYO+probe Ql (Resp) [facility] Ketones Test strip Ql (U)Ord ered By: Amena Smith on 01-16-2023 Ketones Ql (U) 5 mg/dl Negative [facility] Laboratory - Chemistry and C hemistry - challengeOrdered By: Amena Smith on 01-16-2023 CO2 [Moles/Vol] 28.0 mmol/L 21.0-32.0 [facility] Urea nitrogen/Creatinine [Mass ratio] 69.5 mg/mg 10-20 [facility] Laboratory - Hematology and Cell countsOrdered By: Amena Smith on 01-16-2023 Erythrocyte distribution width (RBC) [Entitic vol] 44.5 fL 35.1-43.9 [facility] Erythrocyte distribution width (RBC) [Ratio] 14.6 % 11.6-14.6 [facility] Immature granulocytes/100 WBC (Bld) 0.300 % 0.0-0.9 [facility] Comment on above: IG% - Immature Granu locytes (promyelocytes, myelocytes and metamyelocytes) > 1% indicates that a LEFT SHIFT is Present. MCH (RBC) [Entitic mass] 26.0 pg 27.0-32.0 [facility] Nucleated RBC/100 WBC (Bld) [Ratio] 0 % 0-5 [facility] Laboratory - Microbiology an d Antimicrobial susceptibilityOrdered By: Amena Smith on 01-16-2023 Bacteria identified Cx Nom (Bld) No growth in 5 days. [facility] MCHC Auto (RBC) [Mass/Vol]Or dered By: Amena Smith on 01-16-2023 MCHC (RBC) [Mass/Vol] 30.9 g/dL 32-36 [facility] Mucus LM Ql (Urine sed)Order ed By: Amena Smith on 01-16-2023 Mucus Ql (Urine sed) 0 SEEN /hpf [facility] Nitrite Test strip Ql (U)Ord ered By: Amena Smith on 01-16-2023 Nitrite Ql (U) Negative Negative [facility] No Panel InformationOrdered By: Amena Smith on 01-16-2023 No growth in 5 days. [facility] Estimated Creatinine Clearance Calc 231.48 ml/min [facility] Estimated GFR (MDRD) Amer 422 mL/min >60 [facility] Comment on above: GFR Calc Estimated GFR (MDRD) Non-Af Amer 349 mL/min >60 [facility] Comment on above: Non- GFR Calc 26.0 pg 27.0-32.0 [facility] 14.6 % 11.6-14.6 [facility] 44.5 fl 35.1-43.9 [facility] 0.300 % 0.0-0.9 [facility] 0 % 0-5 [facility] 349 mL/min >60 [facility] 422 mL/min >60 [facility] 231.48 ml/min [facility] 69.5 RATIO 10-20 [facility] 28.0 mmol/L 21.0-32.0 [facility] No Panel InformationOrdered By: Dalton Lester on 01-16-2023 Troponin I High Sensitivity 4 pg/mL 3.0-78.0 [facility] Comment on above: Please Note: New Suha t Units and Gender Specific Reference Ranges. For more information see Policy Stat Procedure Horner High Sensitivity Troponin (TNIH) and attachments. 4 pg/mL 3.0-78.0 [facility] Platelets bldOrdered By: Marjorie Smith on 01-16-2023 Platelets (Bld) [#/Vol] 206 10*3/uL 150-450 [facility] Protein Test strip Ql (U)Ord ered By: Amena Smith on 01-16-2023 Protein Ql (U) 30 mg/dl Negative [facility] Serum or plasma calcium jacinta urement (mass/volume)Ordered By: Amena Smith on 01-16-2023 Calcium [Mass/Vol] 8.3 mg/dL 8.5-10.1 [facility] Serum or plasma creatinine m easurement (mass/volume)Ordered By: Amena Smith on 01-16-2023 Creatinine [Mass/Vol] 0.30 mg/dL 0.70-1.30 [facility] Comment on above: The validity of the calculated GFR & GFRAA in patients over 70 years has not been determined. Clinical correlation is essential. Serum or plasma urea nitroge n measurement (mass/volume)Ordered By: Amena Smith on 01-16-2023 Urea nitrogen [Mass/Vol] 21 mg/dL 7-18 [facility] Squamous epithelial cells de tection in urine sediment by light microscopyOrdered By: Amena Smith on 01-16-2023 Epithelial cells.squamous LM Ql (Urine sed) 0 SEEN /hpf 0-5 [facility] Thin prep Papanicolaou smear with manual screeningOrdered By: Amena Smith on 01-16-2023 Thin prep Papanicolaou smear with manual screening 4 5-15 [facility] Upper respiratory specimen i nfluenza A virus, influenza B virus, and severe acute respiratory syndromOrdered By: Amena Smith on 01-16-2023 Upper respiratory specimen influenza A virus, influenza B virus, and severe acute respiratory syndrom [facility] Urine blood detectionOrdered By: Amena Smiht on 01-16-2023 RBC Ql (U) 10 /ul Negative [facility] RBC Ql (U) 0 SEEN /hpf 0-5 [facility] Urine clarityOrdered By: Marjorie Smith on 01-16-2023 Clarity (U) Clear Clear [facility] Urine color determinationOrd ered By: Amena Smith on 01-16-2023 Color (U) Yellow Yellow [facility] Urine glucose detectionOrder ed By: Amena Smith on 01-16-2023 Glucose Ql (U) Normal mg/dl Normal [facility] Urine leukocyte esterase det ection by dipstickOrdered By: Amena Smith on 01-16-2023 Leukocyte esterase Test strip Ql (U) 25 /ul Negative [facility] Urine pHOrdered By: Amena simons on 01-16-2023 pH (U) 6.0 [pH] 5.0 - 8.0 [facility] Urine sediment bacteria coun t by microscopy (number/high power field)Ordered By: Amena Smith on 01-16-2023 Bacteria LM.HPF (Urine sed) [#/Area] 0 /[HPF] None Seen [facility] Urine specific gravity measu rementOrdered By: Amena Smith on 01-16-2023 Specific gravity (U) [Rel density] 1.025 1.002-1.030 [facility] Urobilinogen Auto test strip Ql (U)Ordered By: Amena Smith on 01-16-2023 Urobilinogen Ql (U) Normal mg/dl Normal [facility] Absolute lymphocyte countOrd ered By: Torey Huffman on 01-04-2023 Lymphocytes Auto (Unsp spec) [#/Vol] 2.04 10*3/uL 0.83-4.51 [facility] Basophil percentageOrdered B y: Torey Huffman on 01-04-2023 Basophil percentage 91 mg/dL 74-106 [facility] Basophil percentage 141 mmol/L 136-145 [facility] Basophil percentage 3.9 mmol/L 3.5-5.1 [facility] Basophil percentage 105 mmol/L 98-107 [facility] Basophils (Bld) [#/Vol] 6.9 10*3/uL 4.4-11.0 [facility] Basophils (Bld) [#/Vol] 3.9 10*3/uL 2.0-7.7 [facility] Basophils/100 WBC (Bld) 0.3 % 0-1 [facility] Basophils/100 WBC (Bld) 57.1 % 47-70 [facility] Basophils/100 WBC (Bld) 4.4 % 0-5 [facility] Chloride [Moles/Vol] 105 mmol/L 98-107 [facility] Eosinophils/100 WBC (Bld) 4.4 % 0-5 [facility] Glucose [Mass/Vol] 91 mg/dL 74-106 [facility] Neutrophils (Bld) [#/Vol] 3.9 10*3/uL 2.0-7.7 [facility] Neutrophils/100 WBC (Bld) 57.1 % 47-70 [facility] Potassium [Moles/Vol] 3.9 mmol/L 3.5-5.1 [facility] Sodium [Moles/Vol] 141 mmol/L 136-145 [facility] WBC (Bld) [#/Vol] 6.9 10*3/uL 4.4-11.0 [facility] Blood erythrocytes count (nu mber/volume)Ordered By: Torey Huffman on 01-04-2023 RBC (Bld) [#/Vol] 4.11 10*6/uL 4.6-6.2 [facility] Blood hemoglobin measurement (mass/volume)Ordered By: Torey Huffman on 01-04-2023 Hemoglobin (Bld) [Mass/Vol] 10.6 g/dL 13.0-16.5 [facility] Blood lymphocytes/100 leukoc ytesOrdered By: Torey Huffman on 01-04-2023 Lymphocytes/100 WBC (Bld) 29.7 % 19-41 [facility] Blood monocytes/100 leukocyt esOrdered By: Torey Huffman on 01-04-2023 Monocytes/100 WBC (Bld) 8.4 % 0-10 [facility] Blood platelet mean volumeOr dered By: Torey Huffman on 01-04-2023 Platelet mean volume (Bld) [Entitic vol] 10.3 fL 6.2-12.0 [facility] Determination of erythrocyte mean corpuscular volume (MCV)Ordered By: Torey Huffman on 01-04-2023 MCV (RBC) [Entitic vol] 84.9 fL 80-94 [facility] Hematocrit Auto (Bld) [Volum e fraction]Ordered By: Torey Huffman on 01-04-2023 Hematocrit (Bld) [Volume fraction] 34.9 % 40-54 [facility] Laboratory - Chemistry and C hemistry - challengeOrdered By: Torey Huffman on 01-04-2023 CO2 [Moles/Vol] 31.0 mmol/L 21.0-32.0 [facility] Urea nitrogen/Creatinine [Mass ratio] 65.4 mg/mg 10-20 [facility] Laboratory - Hematology and Cell countsOrdered By: Torey Huffman on 01-04-2023 Erythrocyte distribution width (RBC) [Entitic vol] 45.1 fL 35.1-43.9 [facility] Erythrocyte distribution width (RBC) [Ratio] 14.6 % 11.6-14.6 [facility] Immature granulocytes/100 WBC (Bld) 0.100 % 0.0-0.9 [facility] Comment on above: IG% - Immature Granu locytes (promyelocytes, myelocytes and metamyelocytes) > 1% indicates that a LEFT SHIFT is Present. MCH (RBC) [Entitic mass] 25.8 pg 27.0-32.0 [facility] Nucleated RBC/100 WBC (Bld) [Ratio] 0 % 0-5 [facility] MCHC Auto (RBC) [Mass/Vol]Or dered By: Torey Huffman on 01-04-2023 MCHC (RBC) [Mass/Vol] 30.4 g/dL 32-36 [facility] No Panel InformationOrdered By: Torey Huffman on 01-04-2023 Estimated GFR (MDRD) Amer 501 mL/min >60 [facility] Comment on above: GFR Calc Estimated GFR (MDRD) Non-Af Amer 414 mL/min >60 [facility] Comment on above: Non- GFR Calc 25.8 pg 27.0-32.0 [facility] 14.6 % 11.6-14.6 [facility] 45.1 fl 35.1-43.9 [facility] 0.100 % 0.0-0.9 [facility] 0 % 0-5 [facility] 414 mL/min >60 [facility] 501 mL/min >60 [facility] 65.4 RATIO 10-20 [facility] 31.0 mmol/L 21.0-32.0 [facility] Platelets bldOrdered By: Mellissa Huffman on 01-04-2023 Platelets (Bld) [#/Vol] 172 10*3/uL 150-450 [facility] Serum or plasma calcium jacinta urement (mass/volume)Ordered By: Torey Huffman on 01-04-2023 Calcium [Mass/Vol] 8.1 mg/dL 8.5-10.1 [facility] Serum or plasma creatinine m easurement (mass/volume)Ordered By: Torey Huffman on 01-04-2023 Creatinine [Mass/Vol] 0.26 mg/dL 0.70-1.30 [facility] Comment on above: The validity of the calculated GFR & GFRAA in patients over 70 years has not been determined. Clinical correlation is essential. Serum or plasma urea nitroge n measurement (mass/volume)Ordered By: Torey Huffman on 01-04-2023 Urea nitrogen [Mass/Vol] 17 mg/dL 7-18 [facility] Thin prep Papanicolaou smear with manual screeningOrdered By: Torey Huffman on 01-04-2023 Thin prep Papanicolaou smear with manual screening 5 5-15 [facility] Basophil percentageOrdered B y: Donte Abebe on 12-13-2022 Basophil percentage 116 mg/dL 74-106 [facility] Basophil percentage 141 mmol/L 136-145 [facility] Basophil percentage 3.4 mmol/L 3.5-5.1 [facility] Basophil percentage 109 mmol/L 98-107 [facility] Basophils (Bld) [#/Vol] 7.6 10*3/uL 4.4-11.0 [facility] Chloride [Moles/Vol] 109 mmol/L 98-107 [facility] Glucose [Mass/Vol] 116 mg/dL 74-106 [facility] Comment on above: Fasting Glucose resu lt from 100 to 125 mg/dL suggests IMPAIRED HOMEOSTASIS per A.D.A. criteria. Potassium [Moles/Vol] 3.4 mmol/L 3.5-5.1 [facility] Sodium [Moles/Vol] 141 mmol/L 136-145 [facility] WBC (Bld) [#/Vol] 7.6 10*3/uL 4.4-11.0 [facility] Blood erythrocytes count (nu mber/volume)Ordered By: Donte Abebe on 12-13-2022 RBC (Bld) [#/Vol] 3.74 10*6/uL 4.6-6.2 [facility] Blood hemoglobin measurement (mass/volume)Ordered By: Donte Abebe on 12-13-2022 Hemoglobin (Bld) [Mass/Vol] 9.9 g/dL 13.0-16.5 [facility] Blood platelet mean volumeOr dered By: Donte Abebe on 12-13-2022 Platelet mean volume (Bld) [Entitic vol] 9.9 fL 6.2-12.0 [facility] Determination of erythrocyte mean corpuscular volume (MCV)Ordered By: Donte Abebe on 12-13-2022 MCV (RBC) [Entitic vol] 87.4 fL 80-94 [facility] Hematocrit Auto (Bld) [Volum e fraction]Ordered By: Donte Abebe on 12-13-2022 Hematocrit (Bld) [Volume fraction] 32.7 % 40-54 [facility] Laboratory - Chemistry and C hemistry - challengeOrdered By: Donte Abebe on 12-13-2022 CO2 [Moles/Vol] 27.0 mmol/L 21.0-32.0 [facility] Urea nitrogen/Creatinine [Mass ratio] 47.2 mg/mg 12-11 [facility] Laboratory - Hematology and Cell countsOrdered By: Donte Abebe on 12-13-2022 Erythrocyte distribution width (RBC) [Entitic vol] 46.0 fL 35.1-43.9 [facility] Erythrocyte distribution width (RBC) [Ratio] 14.4 % 11.6-14.6 [facility] MCH (RBC) [Entitic mass] 26.5 pg 27.0-32.0 [facility] MCHC Auto (RBC) [Mass/Vol]Or dered By: Donte Abebe on 12-13-2022 MCHC (RBC) [Mass/Vol] 30.3 g/dL 32-36 [facility] No Panel InformationOrdered By: Donte Abebe on 12-13-2022 Estimated Creatinine Clearance Calc 277.78 ml/min [facility] Estimated GFR (MDRD) Amer 515 mL/min >60 [facility] Comment on above: GFR Calc Estimated GFR (MDRD) Non-Af Amer 426 mL/min >60 [facility] Comment on above: Non- GFR Calc 26.5 pg 27.0-32.0 [facility] 14.4 % 11.6-14.6 [facility] 46.0 fl 35.1-43.9 [facility] 426 mL/min >60 [facility] 515 mL/min >60 [facility] 277.78 ml/min [facility] 47.2 RATIO 12-11 [facility] 27.0 mmol/L 21.0-32.0 [facility] Platelets bldOrdered By: Sho Abebe on 12-13-2022 Platelets (Bld) [#/Vol] 166 10*3/uL 150-450 [facility] Serum or plasma calcium jacinta urement (mass/volume)Ordered By: Donte Abebe on 12-13-2022 Calcium [Mass/Vol] 7.4 mg/dL 8.5-10.1 [facility] Serum or plasma creatinine m easurement (mass/volume)Ordered By: Donte Abebe on 12-13-2022 Creatinine [Mass/Vol] 0.25 mg/dL 0.70-1.30 [facility] Comment on above: The validity of the calculated GFR & GFRAA in patients over 70 years has not been determined. Clinical correlation is essential. Serum or plasma urea nitroge n measurement (mass/volume)Ordered By: Donte Abebe on 12-13-2022 Urea nitrogen [Mass/Vol] 12 mg/dL 7-18 [facility] Thin prep Papanicolaou smear with manual screeningOrdered By: Donte Abebe on 12-13-2022 Thin prep Papanicolaou smear with manual screening 5 5-15 [facility] Basophil percentageOrdered B y: Donte Abebe on 12-11-2022 Chloride [Moles/Vol] 111 mmol/L 98-107 [facility] Glucose [Mass/Vol] 101 mg/dL 74-106 [facility] Comment on above: Fasting Glucose resu lt from 100 to 125 mg/dL suggests IMPAIRED HOMEOSTASIS per A.D.A. criteria. Potassium [Moles/Vol] 2.8 mmol/L 3.5-5.1 [facility] Sodium [Moles/Vol] 144 mmol/L 136-145 [facility] WBC (Bld) [#/Vol] 7.6 10*3/uL 4.4-11.0 [facility] Blood erythrocytes count (nu mber/volume)Ordered By: Donte Abebe on 12-11-2022 RBC (Bld) [#/Vol] 3.90 10*6/uL 4.6-6.2 [facility] Blood hemoglobin measurement (mass/volume)Ordered By: Donte Abebe on 12-11-2022 Hemoglobin (Bld) [Mass/Vol] 10.3 g/dL 13.0-16.5 [facility] Blood platelet mean volumeOr dered By: Donte Abebe on 12-11-2022 Platelet mean volume (Bld) [Entitic vol] 9.9 fL 6.2-12.0 [facility] Determination of erythrocyte mean corpuscular volume (MCV)Ordered By: Donte Abebe on 12-11-2022 MCV (RBC) [Entitic vol] 85.9 fL 80-94 [facility] Hematocrit Auto (Bld) [Volum e fraction]Ordered By: Donte Abebe on 12-11-2022 Hematocrit (Bld) [Volume fraction] 33.5 % 40-54 [facility] Laboratory - Chemistry and C hemistry - challengeOrdered By: Donte Abebe on 12-11-2022 CO2 [Moles/Vol] 29.0 mmol/L 21.0-32.0 [facility] Urea nitrogen/Creatinine [Mass ratio] 69.8 mg/mg 12-11 [facility] Laboratory - Hematology and Cell countsOrdered By: Donte Abebe on 12-11-2022 Erythrocyte distribution width (RBC) [Entitic vol] 44.6 fL 35.1-43.9 [facility] Erythrocyte distribution width (RBC) [Ratio] 14.4 % 11.6-14.6 [facility] MCH (RBC) [Entitic mass] 26.4 pg 27.0-32.0 [facility] MCHC Auto (RBC) [Mass/Vol]Or dered By: Donte Abebe on 12-11-2022 MCHC (RBC) [Mass/Vol] 30.7 g/dL 32-36 [facility] No Panel InformationOrdered By: Donte Abebe on 12-11-2022 Estimated Creatinine Clearance Calc 267.09 ml/min [facility] Estimated GFR (MDRD) Amer 506 mL/min >60 [facility] Comment on above: GFR Calc Estimated GFR (MDRD) Non-Af Amer 418 mL/min >60 [facility] Comment on above: Non- GFR Calc Platelets bldOrdered By: Sho Abebe on 12-11-2022 Platelets (Bld) [#/Vol] 183 10*3/uL 150-450 [facility] Serum or plasma calcium jacinta urement (mass/volume)Ordered By: Donte Abebe on 12-11-2022 Calcium [Mass/Vol] 7.8 mg/dL 8.5-10.1 [facility] Serum or plasma creatinine m easurement (mass/volume)Ordered By: Donte Abebe on 12-11-2022 Creatinine [Mass/Vol] 0.26 mg/dL 0.70-1.30 [facility] Comment on above: The validity of the calculated GFR & GFRAA in patients over 70 years has not been determined. Clinical correlation is essential. Serum or plasma urea nitroge n measurement (mass/volume)Ordered By: Donte Abebe on 12-11-2022 Urea nitrogen [Mass/Vol] 18 mg/dL 7-18 [facility] Thin prep Papanicolaou smear with manual screeningOrdered By: Donte Abebe on 12-11-2022 Thin prep Papanicolaou smear with manual screening 4 5-15 [facility] Absolute lymphocyte countOrd ered By: Miky Pio on 12-10-2022 Lymphocytes Auto (Unsp spec) [#/Vol] 2.23 10*3/uL 0.83-4.51 [facility] Basophil percentageOrdered B y: Miky Rahman on 12-10-2022 Basophil percentage 8.7 g/dL 6.4-8.2 [facility] Basophil percentage 0.20 mg/dL 0.20-1.00 [facility] Basophils (Bld) [#/Vol] 8.4 10*3/uL 2.0-7.7 [facility] Basophils/100 WBC (Bld) 0.2 % 0-1 [facility] Basophils/100 WBC (Bld) 72.2 % 47-70 [facility] Basophils/100 WBC (Bld) 2.1 % 0-5 [facility] Bilirubin [Mass/Vol] 0.20 mg/dL 0.20-1.00 [facility] Comment on above: For patients on eltr ombopag therapy, use of Dimension Horner TBIL is not recommended. Chloride [Moles/Vol] 105 mmol/L 98-107 [facility] Eosinophils/100 WBC (Bld) 2.1 % 0-5 [facility] Glucose [Mass/Vol] 109 mg/dL 74-106 [facility] Comment on above: Fasting Glucose resu lt from 100 to 125 mg/dL suggests IMPAIRED HOMEOSTASIS per A.D.A. criteria. Neutrophils (Bld) [#/Vol] 8.4 10*3/uL 2.0-7.7 [facility] Neutrophils/100 WBC (Bld) 72.2 % 47-70 [facility] Potassium [Moles/Vol] 3.8 mmol/L 3.5-5.1 [facility] Protein [Mass/Vol] 8.7 g/dL 6.4-8.2 [facility] Sodium [Moles/Vol] 140 mmol/L 136-145 [facility] WBC (Bld) [#/Vol] 11.6 10*3/uL 4.4-11.0 [facility] Blood erythrocytes count (nu mber/volume)Ordered By: Miky Rahman on 12-10-2022 RBC (Bld) [#/Vol] 4.77 10*6/uL 4.6-6.2 [facility] Blood hemoglobin measurement (mass/volume)Ordered By: Miky Rahman on 12-10-2022 Hemoglobin (Bld) [Mass/Vol] 12.6 g/dL 13.0-16.5 [facility] Blood lymphocytes/100 leukoc ytesOrdered By: Miky Rahman on 12-10-2022 Lymphocytes/100 WBC (Bld) 19.2 % 19-41 [facility] Blood monocytes/100 leukocyt esOrdered By: Miky Rahman on 12-10-2022 Monocytes/100 WBC (Bld) 5.9 % 0-10 [facility] Blood platelet mean volumeOr dered By: Miky Rahman on 12-10-2022 Platelet mean volume (Bld) [Entitic vol] 10.0 fL 6.2-12.0 [facility] Determination of erythrocyte mean corpuscular volume (MCV)Ordered By: Miky Rahman on 12-10-2022 MCV (RBC) [Entitic vol] 83.4 fL 80-94 [facility] Hematocrit Auto (Bld) [Volum e fraction]Ordered By: Miky Rahman on 12-10-2022 Hematocrit (Bld) [Volume fraction] 39.8 % 40-54 [facility] INR in Blood by Coagulation assayOrdered By: Miky Rahman on 12-10-2022 INR Coag (Bld) [Relative time] 1.0 {INR} [facility] Laboratory - Chemistry and C hemistry - challengeOrdered By: Miky Rahman on 12-10-2022 ALP [Catalytic activity/Vol] 144 U/L 45-117 [facility] ALT [Catalytic activity/Vol] 29 U/L 16-61 [facility] CO2 [Moles/Vol] 29.0 mmol/L 21.0-32.0 [facility] Globulin (S) [Mass/Vol] 5.4 g/dL 2.2-4.2 [facility] Lipase [Catalytic activity/Vol] 58 U/L 13-75 [facility] Comment on above: Please note:LIPASE r evised reference range effective 22. New Lipase methodology. Expected to produce lower values than the previous assay method. NEW Reference Range: 13 - 75 U/L Urea nitrogen/Creatinine [Mass ratio] 45.3 mg/mg 10-20 [facility] Laboratory - CoagulationOrde red By: Miky Rahman on 12-10-2022 aPTT Coag (Bld) [Time] 35.6 s 24.1-36.2 [facility] PT Coag (PPP) [Time] 13.4 s 11.7-14.9 [facility] Laboratory - Hematology and Cell countsOrdered By: Miky Rahman on 12-10-2022 Erythrocyte distribution width (RBC) [Entitic vol] 42.8 fL 35.1-43.9 [facility] Erythrocyte distribution width (RBC) [Ratio] 14.0 % 11.6-14.6 [facility] Immature granulocytes/100 WBC (Bld) 0.400 % 0.0-0.9 [facility] Comment on above: IG% - Immature Granu locytes (promyelocytes, myelocytes and metamyelocytes) > 1% indicates that a LEFT SHIFT is Present. MCH (RBC) [Entitic mass] 26.4 pg 27.0-32.0 [facility] Nucleated RBC/100 WBC (Bld) [Ratio] 0 % 0-5 [facility] MCHC Auto (RBC) [Mass/Vol]Or dered By: Miky Rahman on 12-10-2022 MCHC (RBC) [Mass/Vol] 31.7 g/dL 32-36 [facility] No Panel InformationOrdered By: Miky Rahman on 12-10-2022 Estimated Creatinine Clearance Calc 198.41 ml/min [facility] Estimated GFR (MDRD) Amer 352 mL/min >60 [facility] Comment on above: GFR Calc Estimated GFR (MDRD) Non-Af Amer 291 mL/min >60 [facility] Comment on above: Non- GFR Calc 0.400 % 0.0-0.9 [facility] 0 % 0-5 [facility] 13.4 SECONDS 11.7-14.9 [facility] 35.6 Seconds 24.1-36.2 [facility] 5.4 g/dL 2.2-4.2 [facility] 58 U/L 13-75 [facility] 144 U/L 45-117 [facility] 29 U/L 16-61 [facility] Platelets bldOrdered By: Maximus Rahman on 12-10-2022 Platelets (Bld) [#/Vol] 228 10*3/uL 150-450 [facility] Serum or plasma albumin jacinta urement (mass/volume)Ordered By: Miky Rahman on 12-10-2022 Albumin [Mass/Vol] 3.3 g/dL 3.2-5.0 [facility] Serum or plasma albumin/glob ulin mass ratioOrdered By: Miky Rahman on 12-10-2022 Albumin/Globulin [Mass ratio] 0.6 {ratio} 0.9-2.4 [facility] Serum or plasma calcium jacinta urement (mass/volume)Ordered By: Miky Rahman on 12-10-2022 Calcium [Mass/Vol] 8.6 mg/dL 8.5-10.1 [facility] Serum or plasma creatinine m easurement (mass/volume)Ordered By: Miky Rahman on 12-10-2022 Creatinine [Mass/Vol] 0.35 mg/dL 0.70-1.30 [facility] Comment on above: The validity of the calculated GFR & GFRAA in patients over 70 years has not been determined. Clinical correlation is essential. Serum or plasma urea nitroge n measurement (mass/volume)Ordered By: Miky Rahman on 12-10-2022 Urea nitrogen [Mass/Vol] 16 mg/dL 7-18 [facility] Thin prep Papanicolaou smear with manual screeningOrdered By: Miky Rahman on 12-10-2022 Thin prep Papanicolaou smear with manual screening 19 U/L 15-37 [facility] Thin prep Papanicolaou smear with manual screening 6 5-15 [facility] Absolute lymphocyte countOrd ered By: Torey Huffman on 12-07-2022 Lymphocytes Auto (Unsp spec) [#/Vol] 2.35 10*3/uL 0.83-4.51 [facility] Basophil percentageOrdered B y: Torey Huffman on 12-07-2022 Basophil percentage 100 mg/dL 74-106 [facility] Basophil percentage 139 mmol/L 136-145 [facility] Basophil percentage 3.5 mmol/L 3.5-5.1 [facility] Basophil percentage 104 mmol/L 98-107 [facility] Basophils (Bld) [#/Vol] 6.7 10*3/uL 4.4-11.0 [facility] Basophils (Bld) [#/Vol] 3.4 10*3/uL 2.0-7.7 [facility] Basophils/100 WBC (Bld) 0.3 % 0-1 [facility] Basophils/100 WBC (Bld) 50.3 % 47-70 [facility] Basophils/100 WBC (Bld) 5.3 % 0-5 [facility] Chloride [Moles/Vol] 104 mmol/L 98-107 [facility] Eosinophils/100 WBC (Bld) 5.3 % 0-5 [facility] Glucose [Mass/Vol] 100 mg/dL 74-106 [facility] Comment on above: Fasting Glucose resu lt from 100 to 125 mg/dL suggests IMPAIRED HOMEOSTASIS per A.D.A. criteria. Neutrophils (Bld) [#/Vol] 3.4 10*3/uL 2.0-7.7 [facility] Neutrophils/100 WBC (Bld) 50.3 % 47-70 [facility] Potassium [Moles/Vol] 3.5 mmol/L 3.5-5.1 [facility] Sodium [Moles/Vol] 139 mmol/L 136-145 [facility] WBC (Bld) [#/Vol] 6.7 10*3/uL 4.4-11.0 [facility] Blood erythrocytes count (nu mber/volume)Ordered By: Torey Huffman on 12-07-2022 RBC (Bld) [#/Vol] 4.10 10*6/uL 4.6-6.2 [facility] Blood hemoglobin measurement (mass/volume)Ordered By: Torey Huffman on 12-07-2022 Hemoglobin (Bld) [Mass/Vol] 10.8 g/dL 13.0-16.5 [facility] Blood lymphocytes/100 leukoc ytesOrdered By: Torey Huffman on 12-07-2022 Lymphocytes/100 WBC (Bld) 34.9 % 19-41 [facility] Blood monocytes/100 leukocyt esOrdered By: Torey Huffman on 12-07-2022 Monocytes/100 WBC (Bld) 8.9 % 0-10 [facility] Blood platelet mean volumeOr dered By: Torey Huffman on 12-07-2022 Platelet mean volume (Bld) [Entitic vol] 10.7 fL 6.2-12.0 [facility] Determination of erythrocyte mean corpuscular volume (MCV)Ordered By: Torey Huffman on 12-07-2022 MCV (RBC) [Entitic vol] 86.3 fL 80-94 [facility] Hematocrit Auto (Bld) [Volum e fraction]Ordered By: Torey Huffman on 12-07-2022 Hematocrit (Bld) [Volume fraction] 35.4 % 40-54 [facility] Laboratory - Chemistry and C hemistry - challengeOrdered By: Torey Huffman on 12-07-2022 CO2 [Moles/Vol] 30.0 mmol/L 21.0-32.0 [facility] Urea nitrogen/Creatinine [Mass ratio] 58.1 mg/mg 10-20 [facility] Laboratory - Hematology and Cell countsOrdered By: Torey Huffman on 12-07-2022 Erythrocyte distribution width (RBC) [Entitic vol] 43.8 fL 35.1-43.9 [facility] Erythrocyte distribution width (RBC) [Ratio] 13.9 % 11.6-14.6 [facility] Immature granulocytes/100 WBC (Bld) 0.300 % 0.0-0.9 [facility] Comment on above: IG% - Immature Granu locytes (promyelocytes, myelocytes and metamyelocytes) > 1% indicates that a LEFT SHIFT is Present. MCH (RBC) [Entitic mass] 26.3 pg 27.0-32.0 [facility] Nucleated RBC/100 [facility]Bld) [[facility]] 0 [facility] [Mass/Vol]Or dered By: Torey Huffman on 12-07-2022 MCHC (RBC) [Mass/Vol] 30.5 g/dL 32-36 [facility] No Panel InformationOrdered By: Torey Huffman on 12-07-2022 Estimated GFR (MDRD) Amer 385 mL/min >60 [facility] Comment on above: GFR Calc Estimated GFR (MDRD) Non-Af Amer 318 mL/min >60 [facility] Comment on above: Non- GFR Calc 26.3 pg 27.0-32.0 [facility] 13.9 % 11.6-14.6 [facility] 43.8 fl 35.1-43.9 [facility] 0.300 % 0.0-0.9 [facility] 0 % 0-5 [facility] 318 mL/min >60 [facility] 385 mL/min >60 [facility] 58.1 RATIO 10-20 [facility] 30.0 mmol/L 21.0-32.0 [facility] Platelets bldOrdered By: Mellissa Huffman on 12-07-2022 Platelets (Bld) [#/Vol] 208 10*3/uL 150-450 [facility] Serum or plasma calcium jacinta urement (mass/volume)Ordered By: Torey Huffman on 12-07-2022 Calcium [Mass/Vol] 8.3 mg/dL 8.5-10.1 [facility] Serum or plasma creatinine m easurement (mass/volume)Ordered By: Torey Huffman on 12-07-2022 Creatinine [Mass/Vol] 0.33 mg/dL 0.70-1.30 [facility] Comment on above: The validity of the calculated GFR & GFRAA in patients over 70 years has not been determined. Clinical correlation is essential. Serum or plasma urea nitroge n measurement (mass/volume)Ordered By: Torey Huffman on 12-07-2022 Urea nitrogen [Mass/Vol] 19 mg/dL 7-18 [facility] Thin prep Papanicolaou smear with manual screeningOrdered By: Torey Huffman on 10-16-2023 Thin prep Papanicolaou smear with manual screening 5 5-15 [facility] Absolute lymphocyte countOrd ered By: Torey Huffman on 11-12-2022 Lymphocytes Auto (Unsp spec) [#/Vol] 2.33 10*3/uL 0.83-4.51 [facility] Basophil percentageOrdered B y: Torey Huffman on 11-12-2022 Basophils/100 WBC (Bld) 0.1 % 0-1 [facility] Chloride [Moles/Vol] 104 mmol/L 98-107 [facility] Eosinophils/100 WBC (Bld) 4.2 % 0-5 [facility] Glucose [Mass/Vol] 99 mg/dL 74-106 [facility] Neutrophils (Bld) [#/Vol] 4.4 10*3/uL 2.0-7.7 [facility] Neutrophils/100 WBC (Bld) 56.0 % 47-70 [facility] Potassium [Moles/Vol] 3.6 mmol/L 3.5-5.1 [facility] Sodium [Moles/Vol] 140 mmol/L 136-145 [facility] WBC (Bld) [#/Vol] 7.8 10*3/uL 4.4-11.0 [facility] Blood erythrocytes count (nu mber/volume)Ordered By: Torey Huffman on 11-12-2022 RBC (Bld) [#/Vol] 4.11 10*6/uL 4.6-6.2 [facility] Blood hemoglobin measurement (mass/volume)Ordered By: Torey Huffman on 11-12-2022 Hemoglobin (Bld) [Mass/Vol] 10.9 g/dL 13.0-16.5 [facility] Blood lymphocytes/100 leukoc ytesOrdered By: Torey Huffman on 11-12-2022 Lymphocytes/100 WBC (Bld) 29.7 % 19-41 [facility] Blood monocytes/100 leukocyt esOrdered By: Torey Huffman on 11-12-2022 Monocytes/100 WBC (Bld) 9.7 % 0-10 [facility] Blood platelet mean volumeOr dered By: Torey Huffman on 11-12-2022 Platelet mean volume (Bld) [Entitic vol] 10.3 fL 6.2-12.0 [facility] Determination of erythrocyte mean corpuscular volume (MCV)Ordered By: Torey Huffman on 11-12-2022 MCV (RBC) [Entitic vol] 86.6 fL 80-94 [facility] Hematocrit Auto (Bld) [Volum e fraction]Ordered By: Torey Huffman on 11-12-2022 Hematocrit (Bld) [Volume fraction] 35.6 % 40-54 [facility] Laboratory - Chemistry and C hemistry - challengeOrdered By: Torey Huffman on 11-12-2022 CO2 [Moles/Vol] 31.0 mmol/L 21.0-32.0 [facility] Urea nitrogen/Creatinine [Mass ratio] 81.1 mg/mg 10-20 [facility] Laboratory - Hematology and Cell countsOrdered By: Torey Huffman on 11-12-2022 Erythrocyte distribution width (RBC) [Entitic vol] 43.8 fL 35.1-43.9 [facility] Erythrocyte distribution width (RBC) [Ratio] 13.9 % 11.6-14.6 [facility] Immature granulocytes/100 WBC (Bld) 0.300 % 0.0-0.9 [facility] Comment on above: IG% - Immature Granu locytes (promyelocytes, myelocytes and metamyelocytes) > 1% indicates that a LEFT SHIFT is Present. MCH (RBC) [Entitic mass] 26.5 pg 27.0-32.0 [facility] Nucleated RBC/100 WBC (Bld) [Ratio] 0 % 0-5 [facility] MCHC Auto (RBC) [Mass/Vol]Or dered By: Torey Huffman on 11-12-2022 MCHC (RBC) [Mass/Vol] 30.6 g/dL 32-36 [facility] No Panel InformationOrdered By: Torey Huffman on 11-12-2022 Estimated GFR (MDRD) Amer 743 mL/min >60 [facility] Comment on above: GFR Calc Estimated GFR (MDRD) Non-Af Amer 614 mL/min >60 [facility] Comment on above: Non- GFR Calc Platelets bldOrdered By: Mellissa Huffman on 11-12-2022 Platelets (Bld) [#/Vol] 212 10*3/uL 150-450 [facility] Serum or plasma calcium jacinta urement (mass/volume)Ordered By: Torey Huffman on 11-12-2022 Calcium [Mass/Vol] 8.4 mg/dL 8.5-10.1 [facility] Serum or plasma creatinine m easurement (mass/volume)Ordered By: Torey Huffman on 11-12-2022 Creatinine [Mass/Vol] 0.18 mg/dL 0.70-1.30 [facility] Comment on above: The validity of the calculated GFR & GFRAA in patients over 70 years has not been determined. Clinical correlation is essential. Serum or plasma urea nitroge n measurement (mass/volume)Ordered By: Torey Huffman on 11-12-2022 Urea nitrogen [Mass/Vol] 15 mg/dL 7-18 [facility] Thin prep Papanicolaou smear with manual screeningOrdered By: Torey Huffman on 11-12-2022 Thin prep Papanicolaou smear with manual screening 5 5-15 [facility] Absolute lymphocyte countOrd ered By: Torey Huffman on 10-14-2022 Lymphocytes Auto (Unsp spec) [#/Vol] 2.10 10*3/uL 0.83-4.51 [facility] Basophil percentageOrdered B y: Torey Huffman on 10-14-2022 Basophils/100 WBC (Bld) 0.3 % 0-1 [facility] Chloride [Moles/Vol] 103 mmol/L 98-107 [facility] Eosinophils/100 WBC (Bld) 3.8 % 0-5 [facility] Glucose [Mass/Vol] 87 mg/dL 74-106 [facility] Neutrophils (Bld) [#/Vol] 3.5 10*3/uL 2.0-7.7 [facility] Neutrophils/100 WBC (Bld) 54.4 % 47-70 [facility] Potassium [Moles/Vol] 3.5 mmol/L 3.5-5.1 [facility] Sodium [Moles/Vol] 137 mmol/L 136-145 [facility] WBC (Bld) [#/Vol] 6.4 10*3/uL 4.4-11.0 [facility] Blood erythrocytes count (nu mber/volume)Ordered By: Torey Huffman on 10-14-2022 RBC (Bld) [#/Vol] 4.11 10*6/uL 4.6-6.2 [facility] Blood hemoglobin measurement (mass/volume)Ordered By: Torey Huffman on 10-14-2022 Hemoglobin (Bld) [Mass/Vol] 11.2 g/dL 13.0-16.5 [facility] Blood lymphocytes/100 leukoc ytesOrdered By: Torey Huffman on 10-14-2022 Lymphocytes/100 WBC (Bld) 32.9 % 19-41 [facility] Blood monocytes/100 leukocyt esOrdered By: Torey Huffman on 10-14-2022 Monocytes/100 WBC (Bld) 8.3 % 0-10 [facility] Blood platelet mean volumeOr dered By: Torey Huffman on 10-14-2022 Platelet mean volume (Bld) [Entitic vol] 10.3 fL 6.2-12.0 [facility] Determination of erythrocyte mean corpuscular volume (MCV)Ordered By: Torey Huffman on 10-14-2022 MCV (RBC) [Entitic vol] 83.2 fL 80-94 [facility] Hematocrit Auto (Bld) [Volum e fraction]Ordered By: Torey Huffman on 10-14-2022 Hematocrit (Bld) [Volume fraction] 34.2 % 40-54 [facility] Laboratory - Chemistry and C hemistry - challengeOrdered By: Torey Huffman on 10-14-2022 CO2 [Moles/Vol] 28.0 mmol/L 21.0-32.0 [facility] Urea nitrogen/Creatinine [Mass ratio] 48.4 mg/mg 10-20 [facility] Laboratory - Hematology and Cell countsOrdered By: Torey Huffman on 10-14-2022 Erythrocyte distribution width (RBC) [Entitic vol] 41.8 fL 35.1-43.9 [facility] Erythrocyte distribution width (RBC) [Ratio] 13.7 % 11.6-14.6 [facility] Immature granulocytes/100 WBC (Bld) 0.300 % 0.0-0.9 [facility] Comment on above: IG% - Immature Granu locytes (promyelocytes, myelocytes and metamyelocytes) > 1% indicates that a LEFT SHIFT is Present. MCH (RBC) [Entitic mass] 27.3 pg 27.0-32.0 [facility] Nucleated RBC/100 WBC (Bld) [Ratio] 0 % 0-5 [facility] MCHC Auto (RBC) [Mass/Vol]Or dered By: Torey Huffman on 10-14-2022 MCHC (RBC) [Mass/Vol] 32.7 g/dL 32-36 [facility] No Panel InformationOrdered By: Torey Huffman on 10-14-2022 Estimated GFR (MDRD) Amer 444 mL/min >60 [facility] Comment on above: GFR Calc Estimated GFR (MDRD) Non-Af Amer 367 mL/min >60 [facility] Comment on above: Non- GFR Calc Platelets bldOrdered By: Mellissa Huffman on 10-14-2022 Platelets (Bld) [#/Vol] 211 10*3/uL 150-450 [facility] Serum or plasma calcium jacinta urement (mass/volume)Ordered By: Torey Huffman on 10-14-2022 Calcium [Mass/Vol] 8.6 mg/dL 8.5-10.1 [facility] Serum or plasma creatinine m easurement (mass/volume)Ordered By: Torey Huffman on 10-14-2022 Creatinine [Mass/Vol] 0.29 mg/dL 0.70-1.30 [facility] Comment on above: The validity of the calculated GFR & GFRAA in patients over 70 years has not been determined. Clinical correlation is essential. Serum or plasma urea nitroge n measurement (mass/volume)Ordered By: Torey Huffman on 10-14-2022 Urea nitrogen [Mass/Vol] 14 mg/dL 7-18 [facility] Thin prep Papanicolaou smear with manual screeningOrdered By: Torey Huffman on 10-14-2022 Thin prep Papanicolaou smear with manual screening 6 5-15 [facility] Absolute lymphocyte countOrd ered By: Chente Conn on 09-14-2022 Lymphocytes Auto (Unsp spec) [#/Vol] 1.95 10*3/uL 0.83-4.51 [facility] Basophil percentageOrdered B y: Chente Conn on 09-14-2022 Basophil percentage 21.5 ug/mL 10.0-40.0 [facility] Basophils/100 WBC (Bld) 0.3 % 0-1 [facility] Chloride [Moles/Vol] 104 mmol/L 98-107 [facility] Eosinophils/100 WBC (Bld) 3.7 % 0-5 [facility] Glucose [Mass/Vol] 91 mg/dL 74-106 [facility] Neutrophils (Bld) [#/Vol] 3.3 10*3/uL 2.0-7.7 [facility] Neutrophils/100 WBC (Bld) 54.7 % 47-70 [facility] Potassium [Moles/Vol] 4.0 mmol/L 3.5-5.1 [facility] Sodium [Moles/Vol] 138 mmol/L 136-145 [facility] WBC (Bld) [#/Vol] 6.0 10*3/uL 4.4-11.0 [facility] Blood erythrocytes count (nu mber/volume)Ordered By: Chente Conn on 09-14-2022 RBC (Bld) [#/Vol] 3.87 10*6/uL 4.6-6.2 [facility] Blood hemoglobin measurement (mass/volume)Ordered By: Chente Conn on 09-14-2022 Hemoglobin (Bld) [Mass/Vol] 10.5 g/dL 13.0-16.5 [facility] Blood lymphocytes/100 leukoc ytesOrdered By: Chente Conn on 09-14-2022 Lymphocytes/100 WBC (Bld) 32.4 % 19-41 [facility] Blood monocytes/100 leukocyt esOrdered By: Chente Conn on 09-14-2022 Monocytes/100 WBC (Bld) 8.7 % 0-10 [facility] Blood platelet mean volumeOr dered By: Chente Conn on 09-14-2022 Platelet mean volume (Bld) [Entitic vol] 10.2 fL 6.2-12.0 [facility] Determination of erythrocyte mean corpuscular volume (MCV)Ordered By: Chente Conn on 09-14-2022 MCV (RBC) [Entitic vol] 86.8 fL 80-94 [facility] Hematocrit Auto (Bld) [Volum e fraction]Ordered By: Chente Conn on 09-14-2022 Hematocrit (Bld) [Volume fraction] 33.6 % 40-54 [facility] Laboratory - Chemistry and C hemistry - challengeOrdered By: Chente Conn on 09-14-2022 CO2 [Moles/Vol] 30.0 mmol/L 21.0-32.0 [facility] Urea nitrogen/Creatinine [Mass ratio] 65.6 mg/mg 10-20 [facility] Laboratory - Hematology and Cell countsOrdered By: Chente Conn on 09-14-2022 Erythrocyte distribution width (RBC) [Entitic vol] 44.9 fL 35.1-43.9 [facility] Erythrocyte distribution width (RBC) [Ratio] 14.1 % 11.6-14.6 [facility] Immature granulocytes/100 WBC (Bld) 0.200 % 0.0-0.9 [facility] Comment on above: IG% - Immature Granu locytes (promyelocytes, myelocytes and metamyelocytes) > 1% indicates that a LEFT SHIFT is Present. MCH (RBC) [Entitic mass] 27.1 pg 27.0-32.0 [facility] Nucleated RBC/100 WBC (Bld) [Ratio] 0 % 0-5 [facility] MCHC Auto (RBC) [Mass/Vol]Or dered By: Chente Conn on 09-14-2022 MCHC (RBC) [Mass/Vol] 31.3 g/dL 32-36 [facility] No Panel InformationOrdered By: Chente Conn on 09-14-2022 Estimated GFR (MDRD) Amer 540 mL/min >60 [facility] Comment on above: GFR Calc Estimated GFR (MDRD) Non-Af Amer 447 mL/min >60 [facility] Comment on above: Non- GFR Calc Platelets bldOrdered By: Darwin Conn on 09-14-2022 Platelets (Bld) [#/Vol] 197 10*3/uL 150-450 [facility] Serum or plasma calcium jacinta urement (mass/volume)Ordered By: Chente Conn on 09-14-2022 Calcium [Mass/Vol] 8.2 mg/dL 8.5-10.1 [facility] Serum or plasma creatinine m easurement (mass/volume)Ordered By: Chente Conn on 09-14-2022 Creatinine [Mass/Vol] 0.24 mg/dL 0.70-1.30 [facility] Comment on above: The validity of the calculated GFR & GFRAA in patients over 70 years has not been determined. Clinical correlation is essential. Serum or plasma urea nitroge n measurement (mass/volume)Ordered By: Chente Conn on 09-14-2022 Urea nitrogen [Mass/Vol] 16 mg/dL 7-18 [facility] Thin prep Papanicolaou smear with manual screeningOrdered By: Chente Conn on 09-14-2022 Thin prep Papanicolaou smear with manual screening 4 5-15 [facility] Absolute lymphocyte countOrd ered By: Torey Huffman on 08-17-2022 Lymphocytes Auto (Unsp spec) [#/Vol] 2.34 10*3/uL 0.83-4.51 [facility] Basophil percentageOrdered B y: Torey Huffman on 08-17-2022 Basophils/100 WBC (Bld) 0.3 % 0-1 [facility] Chloride [Moles/Vol] 103 mmol/L 98-107 [facility] Eosinophils/100 WBC (Bld) 3.6 % 0-5 [facility] Glucose [Mass/Vol] 87 mg/dL 74-106 [facility] Neutrophils (Bld) [#/Vol] 2.9 10*3/uL 2.0-7.7 [facility] Neutrophils/100 WBC (Bld) 47.8 % 47-70 [facility] Potassium [Moles/Vol] 3.9 mmol/L 3.5-5.1 [facility] Sodium [Moles/Vol] 137 mmol/L 136-145 [facility] WBC (Bld) [#/Vol] 6.1 10*3/uL 4.4-11.0 [facility] Blood erythrocytes count (nu mber/volume)Ordered By: Torey Huffman on 08-17-2022 RBC (Bld) [#/Vol] 3.97 10*6/uL 4.6-6.2 [facility] Blood hemoglobin measurement (mass/volume)Ordered By: Torey Huffman on 08-17-2022 Hemoglobin (Bld) [Mass/Vol] 10.9 g/dL 13.0-16.5 [facility] Blood lymphocytes/100 leukoc ytesOrdered By: Torey Huffman on 08-17-2022 Lymphocytes/100 WBC (Bld) 38.1 % 19-41 [facility] Blood monocytes/100 leukocyt esOrdered By: Torey Huffman on 08-17-2022 Monocytes/100 WBC (Bld) 9.9 % 0-10 [facility] Blood platelet mean volumeOr dered By: Torey Huffman on 08-17-2022 Platelet mean volume (Bld) [Entitic vol] 10.0 fL 6.2-12.0 [facility] Determination of erythrocyte mean corpuscular volume (MCV)Ordered By: Torey Huffman on 08-17-2022 MCV (RBC) [Entitic vol] 86.1 fL 80-94 [facility] Hematocrit Auto (Bld) [Volum e fraction]Ordered By: Torey Huffman on 08-17-2022 Hematocrit (Bld) [Volume fraction] 34.2 % 40-54 [facility] Laboratory - Chemistry and C hemistry - challengeOrdered By: Torey Huffman on 08-17-2022 CO2 [Moles/Vol] 29.0 mmol/L 21.0-32.0 [facility] Urea nitrogen/Creatinine [Mass ratio] 51.6 mg/mg 10-20 [facility] Laboratory - Hematology and Cell countsOrdered By: Torey Huffman on 08-17-2022 Erythrocyte distribution width (RBC) [Entitic vol] 42.5 fL 35.1-43.9 [facility] Erythrocyte distribution width (RBC) [Ratio] 13.6 % 11.6-14.6 [facility] Immature granulocytes/100 WBC (Bld) 0.300 % 0.0-0.9 [facility] Comment on above: IG% - Immature Granu locytes (promyelocytes, myelocytes and metamyelocytes) > 1% indicates that a LEFT SHIFT is Present. MCH (RBC) [Entitic mass] 27.5 pg 27.0-32.0 [facility] Nucleated RBC/100 WBC (Bld) [Ratio] 0 % 0-5 [facility] MCHC Auto (RBC) [Mass/Vol]Or dered By: Torey Huffman on 08-17-2022 MCHC (RBC) [Mass/Vol] 31.9 g/dL 32-36 [facility] No Panel InformationOrdered By: Torey Huffman on 08-17-2022 Estimated GFR (MDRD) Amer 410 mL/min >60 [facility] Comment on above: GFR Calc Estimated GFR (MDRD) Non-Af Amer 339 mL/min >60 [facility] Comment on above: Non- GFR Calc Platelets bldOrdered By: Mellissa Huffman on 08-17-2022 Platelets (Bld) [#/Vol] 194 10*3/uL 150-450 [facility] Serum or plasma calcium jacinta urement (mass/volume)Ordered By: Torey Huffman on 08-17-2022 Calcium [Mass/Vol] 8.7 mg/dL 8.5-10.1 [facility] Serum or plasma creatinine m easurement (mass/volume)Ordered By: Torey Huffman on 08-17-2022 Creatinine [Mass/Vol] 0.31 mg/dL 0.70-1.30 [facility] Comment on above: The validity of the calculated GFR & GFRAA in patients over 70 years has not been determined. Clinical correlation is essential. Serum or plasma urea nitroge n measurement (mass/volume)Ordered By: Torey Huffman on 08-17-2022 Urea nitrogen [Mass/Vol] 16 mg/dL 7-18 [facility] Thin prep Papanicolaou smear with manual screeningOrdered By: Torey Huffman on 08-17-2022 Thin prep Papanicolaou smear with manual screening 5 5-15 [facility] Absolute lymphocyte countOrd ered By: Torey Huffman on 07-22-2022 Lymphocytes Auto (Unsp spec) [#/Vol] 2.12 10*3/uL 0.83-4.51 [facility] Basophil percentageOrdered B y: Torey Huffman on 07-22-2022 Basophils/100 WBC (Bld) 0.3 % 0-1 [facility] Eosinophils/100 WBC (Bld) 4.9 % 0-5 [facility] Neutrophils (Bld) [#/Vol] 2.9 10*3/uL 2.0-7.7 [facility] Neutrophils/100 WBC (Bld) 49.2 % 47-70 [facility] WBC (Bld) [#/Vol] 5.9 10*3/uL 4.4-11.0 [facility] Basophil percentageOrdered B y: Chente Conn on 07-22-2022 Chloride [Moles/Vol] 102 mmol/L 98-107 [facility] Glucose [Mass/Vol] 80 mg/dL 74-106 [facility] Potassium [Moles/Vol] 3.9 mmol/L 3.5-5.1 [facility] Sodium [Moles/Vol] 139 mmol/L 136-145 [facility] Blood erythrocytes count (nu mber/volume)Ordered By: Torey Huffman on 07-22-2022 RBC (Bld) [#/Vol] 3.96 10*6/uL 4.6-6.2 [facility] Blood hemoglobin measurement (mass/volume)Ordered By: Torey Huffman on 07-22-2022 Hemoglobin (Bld) [Mass/Vol] 11.1 g/dL 13.0-16.5 [facility] Blood lymphocytes/100 leukoc ytesOrdered By: Torey Huffman on 07-22-2022 Lymphocytes/100 WBC (Bld) 35.9 % 19-41 [facility] Blood monocytes/100 leukocyt esOrdered By: Torey Huffman on 07-22-2022 Monocytes/100 WBC (Bld) 9.5 % 0-10 [facility] Blood platelet mean volumeOr dered By: Torey Huffman on 07-22-2022 Platelet mean volume (Bld) [Entitic vol] 9.9 fL 6.2-12.0 [facility] Determination of erythrocyte mean corpuscular volume (MCV)Ordered By: Torey Huffman on 07-22-2022 MCV (RBC) [Entitic vol] 84.8 fL 80-94 [facility] Hematocrit Auto (Bld) [Volum e fraction]Ordered By: Torey Huffman on 07-22-2022 Hematocrit (Bld) [Volume fraction] 33.6 % 40-54 [facility] Laboratory - Chemistry and C hemistry - challengeOrdered By: Chente Conn on 07-22-2022 CO2 [Moles/Vol] 30.0 mmol/L 21.0-32.0 [facility] Urea nitrogen/Creatinine [Mass ratio] 36.2 mg/mg 10-20 [facility] Laboratory - Hematology and Cell countsOrdered By: Torey Huffman on 07-22-2022 Erythrocyte distribution width (RBC) [Entitic vol] 42.1 fL 35.1-43.9 [facility] Erythrocyte distribution width (RBC) [Ratio] 13.5 % 11.6-14.6 [facility] Immature granulocytes/100 WBC (Bld) 0.200 % 0.0-0.9 [facility] Comment on above: IG% - Immature Granu locytes (promyelocytes, myelocytes and metamyelocytes) > 1% indicates that a LEFT SHIFT is Present. MCH (RBC) [Entitic mass] 28.0 pg 27.0-32.0 [facility] Nucleated RBC/100 WBC (Bld) [Ratio] 0 % 0-5 [facility] MCHC Auto (RBC) [Mass/Vol]Or dered By: Torey Huffman on 07-22-2022 MCHC (RBC) [Mass/Vol] 33.0 g/dL 32-36 [facility] No Panel InformationOrdered By: Chente Conn on 07-22-2022 Estimated GFR (MDRD) Amer 346 mL/min >60 [facility] Comment on above: GFR Calc Estimated GFR (MDRD) Non-Af Amer 286 mL/min >60 [facility] Comment on above: Non- GFR Calc Platelets bldOrdered By: Mellissa Huffman on 07-22-2022 Platelets (Bld) [#/Vol] 171 10*3/uL 150-450 [facility] Serum or plasma calcium jacinta urement (mass/volume)Ordered By: Chente Conn on 07-22-2022 Calcium [Mass/Vol] 8.6 mg/dL 8.5-10.1 [facility] Serum or plasma creatinine m easurement (mass/volume)Ordered By: Chente Conn on 07-22-2022 Creatinine [Mass/Vol] 0.36 mg/dL 0.70-1.30 [facility] Comment on above: The validity of the calculated GFR & GFRAA in patients over 70 years has not been determined. Clinical correlation is essential. Serum or plasma urea nitroge n measurement (mass/volume)Ordered By: Chente Conn on 07-22-2022 Urea nitrogen [Mass/Vol] 13 mg/dL 7-18 [facility] Thin prep Papanicolaou smear with manual screeningOrdered By: Chente Conn on 07-22-2022 Thin prep Papanicolaou smear with manual screening 7 5-15 [facility] CNPNon 06-30-2022 [facility] ([facility]) -------- KRISS MICHAEL ([id number]) 1980 M Date Time Provider Department 06/30/22 STOMA THERAPY [facility] During your visit today, we recorded the following information about you: Amber Monreal RN 06/30/2022 3:53 PM Signed [phone] Pt's mother called. She would like to discuss pt's stoma prolapse. Chichi Fowler RN 06/30/2022 4:48 PM Signed [facility] nursing returned patient's mother Yue message [...] e-mail. Mother will give order numbers to [facility]. Also recommended can apply stomahesive [...] [R50.9] 01/13/2013 (more content not included)... Normal [facility] Absolute lymphocyte countOrd ered By: Dr. De La Rosa on 06-22-2022 Lymphocytes Auto (Unsp spec) [#/Vol] 1.42 10*3/uL 0.83-4.51 [facility] Basophil percentageOrdered B y: Dr. De La Rosa on 06-22-2022 Basophil percentage 0-5 SEEN /hpf 0-5 [facility] Basophil percentage 82 mg/dL 74-106 [facility] Basophil percentage 7.2 g/dL 6.4-8.2 [facility] Basophil percentage 0.10 mg/dL 0.20-1.00 [facility] Basophil percentage 139 mmol/L 136-145 [facility] Basophil percentage 3.5 mmol/L 3.5-5.1 [facility] Basophil percentage 107 mmol/L 98-107 [facility] Basophil percentage 1.3 mmol/L 0.4-2.0 [facility] Basophils (Bld) [#/Vol] 6.6 10*3/uL 4.4-11.0 [facility] Basophils (Bld) [#/Vol] 4.5 10*3/uL 2.0-7.7 [facility] Basophils/100 WBC (Bld) 67.2 % 47-70 [facility] Basophils/100 WBC (Bld) 2.4 % 0-5 [facility] Basophils/100 WBC (Bld) 0.2 % 0-1 [facility] Basophil percentageOrdered B y: Siddharth De La Rosa on 06-22-2022 Bilirubin [Mass/Vol] 0.10 mg/dL 0.20-1.[address] [facility] Comment on above: For patients on eltr ombopag therapy, use of Dimension Horner TBIL is not recommended. Chloride [Moles/Vol] 107 mmol/L 98-107 [facility] Eosinophils/100 WBC (Bld) 2.4 % 0-5 [facility] Glucose [Mass/Vol] 82 mg/dL 74-106 [facility] Lactate [Moles/Vol] 1.3 mmol/L 0.4-2.0 [facility] Neutrophils (Bld) [#/Vol] 4.5 10*3/uL 2.0-7.7 [facility] Neutrophils/100 WBC (Bld) 67.2 % 47-70 [facility] Potassium [Moles/Vol] 3.5 mmol/L 3.5-5.1 [facility] Protein [Mass/Vol] 7.2 g/dL 6.4-8.2 [facility] Sodium [Moles/Vol] 139 mmol/L 136-145 [facility] WBC (Bld) [#/Vol] 6.6 10*3/uL 4.4-11.0 [facility] Bilirubin Test strip Ql (U)O rdered By: Dr. De La Rosa on 06-22-2022 Bilirubin Ql (U) Negative Negative [facility] Blood erythrocytes count (nu mber/volume)Ordered By: Dr. De La Rosa on 06-22-2022 RBC (Bld) [#/Vol] 4.21 10*6/uL 4.6-6.2 [facility] Blood hemoglobin measurement (mass/volume)Ordered By: Dr. De LaR osa on 06-22-2022 Hemoglobin (Bld) [Mass/Vol] 11.5 g/dL 13.0-16.5 [facility] Blood lymphocytes/100 leukoc ytesOrdered By: Dr. De La Rosa on 06-22-2022 Lymphocytes/100 WBC (Bld) 21.5 % 19-41 [facility] Blood monocytes/100 leukocyt esOrdered By: Dr. De La Rosa on 06-22-2022 Monocytes/100 WBC (Bld) 8.5 % 0-10 [facility] Blood platelet mean volumeOr dered By: Dr. De La Rosa on 06-22-2022 Platelet mean volume (Bld) [Entitic vol] 10.0 fL 6.2-12.0 [facility] Culture, urineOrdered By: Daina De La Rosa on 06-22-2022 Bacteria identified Cx Nom (U) Culture exhibits no growth. [facility] Determination of erythrocyte mean corpuscular volume (MCV)Ordered By: Dr. De La Rosa on 06-22-2022 MCV (RBC) [Entitic vol] 86.7 fL 80-94 [facility] Hematocrit Auto (Bld) [Volum e fraction]Ordered By: Dr. De La Rosa on 06-22-2022 Hematocrit (Bld) [Volume fraction] 36.5 % 40-54 [facility] INR in Blood by Coagulation assayOrdered By: Dr. De La Rosa on 06-22-2022 INR Coag (Bld) [Relative time] 1.0 {INR} [facility] Ketones Test strip Ql (U)Ord ered By: Dr. De La Rosa on 06-22-2022 Ketones Ql (U) 5 mg/dl Negative [facility] Laboratory - Chemistry and C hemistry - challengeOrdered By: Siddharth De La Rosa on 06-22-2022 ALP [Catalytic activity/Vol] 135 U/L 45-117 [facility] ALT [Catalytic activity/Vol] 19 U/L 16-61 [facility] CO2 [Moles/Vol] 25.0 mmol/L 21.0-32.0 [facility] Globulin (S) [Mass/Vol] 4.3 g/dL 2.2-4.2 [facility] Urea nitrogen/Creatinine [Mass ratio] 48.6 mg/mg 10-20 [facility] Laboratory - CoagulationOrde red By: Siddharth De La Rosa on 06-22-2022 aPTT Coag (Bld) [Time] 31.6 s 24.1-36.2 [facility] PT Coag (PPP) [Time] 13.0 s 11.7-14.9 [facility] Laboratory - Hematology and Cell countsOrdered By: Siddharth De La Rosa on 06-22-2022 Erythrocyte distribution width (RBC) [Entitic vol] 45.2 fL 35.1-43.9 [facility] Erythrocyte distribution width (RBC) [Ratio] 14.3 % 11.6-14.6 [facility] Immature granulocytes/100 WBC (Bld) 0.200 % 0.0-0.9 [facility] Comment on above: IG% - Immature Granu locytes (promyelocytes, myelocytes and metamyelocytes) > 1% indicates that a LEFT SHIFT is Present. MCH (RBC) [Entitic mass] 27.3 pg 27.0-32.0 [facility] Nucleated RBC/100 WBC (Bld) [Ratio] 0 % 0-5 [facility] Laboratory - Microbiology an d Antimicrobial susceptibilityOrdered By: Siddharth De La Rosa on 06-22-2022 Bacteria identified Cx Nom (Bld) No growth in 5 days. [facility] MCHC Auto (RBC) [Mass/Vol]Or dered By: Dr. De La Rosa on 06-22-2022 MCHC (RBC) [Mass/Vol] 31.5 g/dL 32-36 [facility] Mucus LM Ql (Urine sed)Order ed By: Dr. De La Rosa on 06-22-2022 Mucus Ql (Urine sed) 0 SEEN /hpf [facility] Nitrite Test strip Ql (U)Ord ered By: Dr. De La Rosa on 06-22-2022 Nitrite Ql (U) Negative Negative [facility] No Panel InformationOrdered By: Siddharth DeL a Rosa on 06-22-2022 Estimated Creatinine Clearance Calc 366.58 ml/min [facility] [facility] Estimated GFR (MDRD) Amer 383 mL/min >60 [facility] Comment on above: GFR Calc Estimated GFR (MDRD) Non-Af Amer 317 mL/min >60 [facility] Comment on above: Non- GFR Calc No Panel InformationOrdered By: Dr. De La Rosa on 06-22-2022 27.3 pg 27.0-32.0 [facility] 14.3 % 11.6-14.6 [facility] 45.2 fl 35.1-43.9 [facility] 0.200 % 0.0-0.9 [facility] 0 % 0-5 [facility] 13.0 SECONDS 11.7-14.9 [facility] 31.6 Seconds 24.1-36.2 [facility] 317 mL/min >60 [facility] 383 mL/min >60 [facility] 366.58 ml/min [facility] 48.6 RATIO 10-20 [facility] 4.3 g/dL 2.2-4.2 [facility] 135 U/L 45-117 [facility] 19 U/L 16-61 [facility] 25.0 mmol/L 21.0-32.0 [facility] Platelets bldOrdered By: Dr. De La Rosa on 06-22-2022 Platelets (Bld) [#/Vol] 202 10*3/uL 150-450 [facility] Protein Test strip Ql (U)Ord ered By: Dr. De La Rosa on 06-22-2022 Protein Ql (U) 30 mg/dl Negative [facility] Serum or plasma albumin jacinta urement (mass/volume)Ordered By: Dr. De La Rosa on 06-22-2022 Albumin [Mass/Vol] 2.9 g/dL 3.2-5.0 [facility] Serum or plasma albumin/glob ulin mass ratioOrdered By: Dr. De La Rosa on 06-22-2022 Albumin/Globulin [Mass ratio] 0.7 {ratio} 0.9-2.4 [facility] Serum or plasma calcium jacinta urement (mass/volume)Ordered By: Dr. De La Rosa on 06-22-2022 Calcium [Mass/Vol] 7.6 mg/dL 8.5-10.1 [facility] Serum or plasma creatinine m easurement (mass/volume)Ordered By: Dr. De La Rosa on 06-22-2022 Creatinine [Mass/Vol] 0.33 mg/dL 0.70-1.30 [facility] Comment on above: The validity of the calculated GFR & GFRAA in patients over 70 years has not been determined. Clinical correlation is essential. Serum or plasma urea nitroge n measurement (mass/volume)Ordered By: Dr. De La Rosa on 06-22-2022 Urea nitrogen [Mass/Vol] 16 mg/dL 7-18 [facility] Squamous epithelial cells de tection in urine sediment by light microscopyOrdered By: Dr. De La Rosa on 06-22-2022 Epithelial cells.squamous LM Ql (Urine sed) 0-5 SEEN /hpf 0-5 [facility] Thin prep Papanicolaou smear with manual screeningOrdered By: Dr. De La Rosa on 05-01-2023 Thin prep Papanicolaou smear with manual screening 16 U/L 15-37 [facility] Thin prep Papanicolaou smear with manual screening 7 5-15 [facility] Urine blood detectionOrdered By: Dr. De La Rosa on 06-22-2022 RBC Ql (U) Negative Negative [facility] RBC Ql (U) 0 SEEN /hpf 0-5 [facility] Urine clarityOrdered By: Dr. De La Rosa on 06-22-2022 Clarity (U) Sl Cldy Clear [facility] Urine color determinationOrd ered By: Dr. De La Rosa on 06-22-2022 Color (U) Yellow Yellow [facility] Urine glucose detectionOrder ed By: Dr. De La Rosa on 06-22-2022 Glucose Ql (U) Normal mg/dl Normal [facility] Urine leukocyte esterase det ection by dipstickOrdered By: Dr. De La Rosa on 06-22-2022 Leukocyte esterase Test strip Ql (U) 25 /ul Negative [facility] Urine pHOrdered By: Dr. Lianne vieira on 06-22-2022 pH (U) 8.0 [pH] 5.0 - 8.0 [facility] Urine sediment bacteria coun t by microscopy (number/high power field)Ordered By: Dr. De La Rosa on 06-22-2022 Bacteria LM.HPF (Urine sed) [#/Area] 0 /[HPF] None Seen [facility] Urine specific gravity measu rementOrdered By: Dr. De La Rosa on 06-22-2022 Specific gravity (U) [Rel density] 1.010 1.002-1.030 [facility] Urobilinogen Auto test strip Ql (U)Ordered By: Dr. De La Rosa on 06-22-2022 Urobilinogen Ql (U) Normal mg/dl Normal [facility] CNNURSEon 06-15-2022 CNNURSE Nurse Visit (JAYNA) -------- KRISS MICHAEL ([id number]) 1980 Date Time Provider Department 06/15/22 2:00 PM [facility] During your visit today, we recorded the following information about you: Cassie Cui RN 06/15/2022 3:50 PM Addendum The [address] [address] Patient: Kriss Michael Patient Address: [address] [place] [address] Dr Araujo [facility] Preferred Gender: male Date of : 1980 Type of Stoma: End Descending Colostomy Diagnosis: Constipation K59.0 OSTOMY SUPPLY ORDER FORM Coloplast SenSura [place] MAXI Drainable Pouch with Soft Outlet Transparent Cut-to-fit 4 #[id number] 30 day use - 1 Box Coloplast Bed Drainage Bag #[id number] 30 day use-2 bags 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 Leavitt For immediate authorization, please contact the physician?s office. [facility] Nurse: VALERIANO Peters, CWOCN Addendum by: VALERIANO Virgen, CWOCN SIGNATURE: Cassie Cui RN PATIENT NAME: Kriss Michael DATE: June 15, 2022 TIME: 3:34 PM CONTACT #: [phone] Cassie Cui RN 06/15/2022 6:05 PM Signed [...] Requested samples from [employer] for Coloplast SenSura [place] MAXI Drainable pouch with soft outlet #[id number]. Order form provided. Also discussed use of [...] effluent Current pouching system: Jazzmine Cohesive StomaWrap, [place] New Image flat flange with tape collar (cutting surface up to 3 1/2), high volume output pouch Current wearing time: 1 day Recommendations: Skin Care: Apply ConvaTec Stomahesive powder to irritated or denuded skin, brush away excess. 3M No sting skin barrier film. Pouching System: After reducing prolapse, applied Eureka Hollihesive long wedges to peristomal skin, Coloplast [...] Inject intravenou (more content not included)... Normal [facility] Absolute lymphocyte countOrd ered By: Dr. Munoz on 06-12-2022 Lymphocytes Auto (Unsp spec) [#/Vol] 2.18 10*3/uL 0.83-4.51 [facility] Basophil percentageOrdered B y: Dr. Munoz on 06-12-2022 Basophil percentage 90 mg/dL 74-106 [facility] Basophil percentage 135 mmol/L 136-145 [facility] Basophil percentage 3.7 mmol/L 3.5-5.1 [facility] Basophil percentage 103 mmol/L 98-107 [facility] Basophils (Bld) [#/Vol] 6.1 10*3/uL 4.4-11.0 [facility] Basophils (Bld) [#/Vol] 3.1 10*3/uL 2.0-7.7 [facility] Basophils/100 WBC (Bld) 0.5 % 0-1 [facility] Basophils/100 WBC (Bld) 50.9 % 47-70 [facility] Basophils/100 WBC (Bld) 3.3 % 0-5 [facility] Chloride [Moles/Vol] 103 mmol/L 98-107 [facility] Eosinophils/100 WBC (Bld) 3.3 % 0-5 [facility] Glucose [Mass/Vol] 90 mg/dL 74-106 [facility] Neutrophils (Bld) [#/Vol] 3.1 10*3/uL 2.0-7.7 [facility] Neutrophils/100 WBC (Bld) 50.9 % 47-70 [facility] Potassium [Moles/Vol] 3.7 mmol/L 3.5-5.1 [facility] Sodium [Moles/Vol] 135 mmol/L 136-145 [facility] WBC (Bld) [#/Vol] 6.1 10*3/uL 4.4-11.0 [facility] Blood erythrocytes count (nu mber/volume)Ordered By: Dr. Munoz on 06-12-2022 RBC (Bld) [#/Vol] 4.08 10*6/uL 4.6-6.2 [facility] Blood hemoglobin measurement (mass/volume)Ordered By: Dr. Munoz on 06-12-2022 Hemoglobin (Bld) [Mass/Vol] 11.2 g/dL 13.0-16.5 [facility] Blood lymphocytes/100 leukoc ytesOrdered By: Dr. Munoz on 06-12-2022 Lymphocytes/100 WBC (Bld) 35.9 % 19-41 [facility] Blood monocytes/100 leukocyt esOrdered By: Dr. Munoz on 06-12-2022 Monocytes/100 WBC (Bld) 8.1 % 0-10 [facility] Blood platelet mean volumeOr dered By: Dr. Munoz on 06-12-2022 Platelet mean volume (Bld) [Entitic vol] 9.8 fL 6.2-12.0 [facility] Determination of erythrocyte mean corpuscular volume (MCV)Ordered By: Dr. Munoz on 06-12-2022 MCV (RBC) [Entitic vol] 85.0 fL 80-94 [facility] Hematocrit Auto (Bld) [Volum e fraction]Ordered By: Dr. Munoz on 06-12-2022 Hematocrit (Bld) [Volume fraction] 34.7 % 40-54 [facility] Influenza virus A and B and SARS-CoV-2 (COVID-19) Ag panel - Upper respiratory specimOrdered By: Naveen Munoz on 06-12-2022 SARS-CoV-2 (COVID-19) RNA YAYO+probe Ql (Resp) [facility] Influenza virus A and B and SARS-CoV-2 (COVID-19) Ag panel - Upper respiratory specimOrdered By: Dr. Munoz on 06-12-2022 SARS-CoV-2 (COVID-19) RNA YAYO+probe Ql (Resp) [facility] Laboratory - Chemistry and C hemistry - challengeOrdered By: Dr. Munoz on 06-12-2022 CO2 [Moles/Vol] 28.0 mmol/L 21.0-32.0 [facility] Urea nitrogen/Creatinine [Mass ratio] 38.9 mg/mg 10-20 [facility] Laboratory - Hematology and Cell countsOrdered By: Dr. Munoz on 06-12-2022 Erythrocyte distribution width (RBC) [Entitic vol] 45.3 fL 35.1-43.9 [facility] Erythrocyte distribution width (RBC) [Ratio] 14.5 % 11.6-14.6 [facility] Immature granulocytes/100 WBC (Bld) 1.300 % 0.0-0.9 [facility] Comment on above: IG% - Immature Granu locytes (promyelocytes, myelocytes and metamyelocytes) > 1% indicates that a LEFT SHIFT is Present. MCH (RBC) [Entitic mass] 27.5 pg 27.0-32.0 [facility] Nucleated RBC/100 WBC (Bld) [Ratio] 0 % 0-5 [facility] MCHC Auto (RBC) [Mass/Vol]Or dered By: Dr. Munoz on 06-12-2022 MCHC (RBC) [Mass/Vol] 32.3 g/dL 32-36 [facility] No Panel InformationOrdered By: Dr. Munoz on 06-12-2022 Estimated Creatinine Clearance Calc 381.94 ml/min [facility] Estimated GFR (MDRD) Amer 456 mL/min >60 [facility] Comment on above: GFR Calc Estimated GFR (MDRD) Non-Af Amer 377 mL/min >60 [facility] Comment on above: Non- GFR Calc Troponin I High Sensitivity < 3 pg/mL 3.0-78.0 [facility] Comment on above: Please Note: New Suha t Units and Gender Specific Reference Ranges. For more information see Policy Stat Procedure Horner High Sensitivity Troponin (TNIH) and attachments. 27.5 pg 27.0-32.0 [facility] 14.5 % 11.6-14.6 [facility] 45.3 fl 35.1-43.9 [facility] 1.300 % 0.0-0.9 [facility] 0 % 0-5 [facility] 377 mL/min >60 [facility] 456 mL/min >60 [facility] 381.94 ml/min [facility] 38.9 RATIO 10-20 [facility] < 3 pg/mL 3.0-78.0 [facility] 28.0 mmol/L 21.0-32.0 [facility] Platelets bldOrdered By: Dr. Munoz on 06-12-2022 Platelets (Bld) [#/Vol] 199 10*3/uL 150-450 [facility] Serum or plasma calcium jacinta urement (mass/volume)Ordered By: Dr. Munoz on 06-12-2022 Calcium [Mass/Vol] 8.8 mg/dL 8.5-10.1 [facility] Serum or plasma creatinine m easurement (mass/volume)Ordered By: Dr. Munoz on 06-12-2022 Creatinine [Mass/Vol] 0.28 mg/dL 0.70-1.30 [facility] Comment on above: The validity of the calculated GFR & GFRAA in patients over 70 years has not been determined. Clinical correlation is essential. Serum or plasma urea nitroge n measurement (mass/volume)Ordered By: Dr. Munoz on 06-12-2022 Urea nitrogen [Mass/Vol] 11 mg/dL 7-18 [facility] Thin prep Papanicolaou smear with manual screeningOrdered By: Dr. Munoz on 06-12-2022 Thin prep Papanicolaou smear with manual screening 4 5-15 [facility] Absolute lymphocyte countOrd ered By: Dr. Waite on 06-01-2022 Lymphocytes Auto (Unsp spec) [#/Vol] 2.20 10*3/uL 0.83-4.51 [facility] Basophil percentageOrdered B y: Dr. Waite on 06-01-2022 Basophil percentage 100 mg/dL 74-106 [facility] Basophil percentage 140 mmol/L 136-145 [facility] Basophil percentage 3.6 mmol/L 3.5-5.1 [facility] Basophil percentage 105 mmol/L 98-107 [facility] Basophils (Bld) [#/Vol] 5.2 10*3/uL 4.4-11.0 [facility] Basophils (Bld) [#/Vol] 2.2 10*3/uL 2.0-7.7 [facility] Basophils/100 WBC (Bld) 0.4 % 0-1 [facility] Basophils/100 WBC (Bld) 42.6 % 47-70 [facility] Basophils/100 WBC (Bld) 4.6 % 0-5 [facility] Chloride [Moles/Vol] 105 mmol/L 98-107 [facility] Eosinophils/100 WBC (Bld) 4.6 % 0-5 [facility] Glucose [Mass/Vol] 100 mg/dL 74-106 [facility] Comment on above: Fasting Glucose resu lt from 100 to 125 mg/dL suggests IMPAIRED HOMEOSTASIS per A.D.A. criteria. Neutrophils (Bld) [#/Vol] 2.2 10*3/uL 2.0-7.7 [facility] Neutrophils/100 WBC (Bld) 42.6 % 47-70 [facility] Potassium [Moles/Vol] 3.6 mmol/L 3.5-5.1 [facility] Sodium [Moles/Vol] 140 mmol/L 136-145 [facility] WBC (Bld) [#/Vol] 5.2 10*3/uL 4.4-11.0 [facility] Blood erythrocytes count (nu mber/volume)Ordered By: Dr. Waite on 06-01-2022 RBC (Bld) [#/Vol] 3.90 10*6/uL 4.6-6.2 [facility] Blood hemoglobin measurement (mass/volume)Ordered By: Dr. Waite on 06-01-2022 Hemoglobin (Bld) [Mass/Vol] 11.0 g/dL 13.0-16.5 [facility] Blood lymphocytes/100 leukoc ytesOrdered By: Dr. Waite on 06-01-2022 Lymphocytes/100 WBC (Bld) 42.5 % 19-41 [facility] Blood monocytes/100 leukocyt esOrdered By: Dr. Waite on 06-01-2022 Monocytes/100 WBC (Bld) 9.7 % 0-10 [facility] Blood platelet mean volumeOr dered By: Dr. Waite on 06-01-2022 Platelet mean volume (Bld) [Entitic vol] 10.1 fL 6.2-12.0 [facility] Determination of erythrocyte mean corpuscular volume (MCV)Ordered By: Dr. Waite on 06-01-2022 MCV (RBC) [Entitic vol] 86.4 fL 80-94 [facility] Hematocrit Auto (Bld) [Volum e fraction]Ordered By: Dr. Waite on 06-01-2022 Hematocrit (Bld) [Volume fraction] 33.7 % 40-54 [facility] Laboratory - Chemistry and C hemistry - challengeOrdered By: Dr. Waite on 06-01-2022 CO2 [Moles/Vol] 32.0 mmol/L 21.0-32.0 [facility] Urea nitrogen/Creatinine [Mass ratio] 46.0 mg/mg 10-20 [facility] Laboratory - Hematology and Cell countsOrdered By: Dr. Waite on 06-01-2022 Erythrocyte distribution width (RBC) [Entitic vol] 46.1 fL 35.1-43.9 [facility] Erythrocyte distribution width (RBC) [Ratio] 14.7 % 11.6-14.6 [facility] Immature granulocytes/100 WBC (Bld) 0.200 % 0.0-0.9 [facility] Comment on above: IG% - Immature Granu locytes (promyelocytes, myelocytes and metamyelocytes) > 1% indicates that a LEFT SHIFT is Present. MCH (RBC) [Entitic mass] 28.2 pg 27.0-32.0 [facility] Nucleated RBC/100 WBC (Bld) [Ratio] 0 % 0-5 [facility] Auto (RBC) [Mass/Vol]Or dered By: Dr. Waite on 06-01-2022 MCHC (RBC) [Mass/Vol] 32.6 g/dL 32-36 [facility] No Panel InformationOrdered By: Dr. Waite on 06-01-2022 Estimated GFR (MDRD) Amer 501 mL/min >60 [facility] Comment on above: GFR Calc Estimated GFR (MDRD) Non-Af Amer 414 mL/min >60 [facility] Comment on above: Non- GFR Calc 28.2 pg 27.0-32.0 [facility] 14.7 % 11.6-14.6 [facility] 46.1 fl 35.1-43.9 [facility] 0.200 % 0.0-0.9 [facility] 0 % 0-5 [facility] 414 mL/min >60 [facility] 501 mL/min >60 [facility] 46.0 RATIO 10-20 [facility] 32.0 mmol/L 21.0-32.0 [facility] Platelets bldOrdered By: Dr. Waite on 06-01-2022 Platelets (Bld) [#/Vol] 183 10*3/uL 150-450 [facility] Serum or plasma calcium jacinta urement (mass/volume)Ordered By: Dr. Waite on 06-01-2022 Calcium [Mass/Vol] 8.8 mg/dL 8.5-10.1 [facility] Serum or plasma creatinine m easurement (mass/volume)Ordered By: Dr. Waite on 06-01-2022 Creatinine [Mass/Vol] 0.26 mg/dL 0.70-1.30 [facility] Comment on above: The validity of the calculated GFR & GFRAA in patients over 70 years has not been determined. Clinical correlation is essential. Serum or plasma urea nitroge n measurement (mass/volume)Ordered By: Dr. Waite on 06-01-2022 Urea nitrogen [Mass/Vol] 12 mg/dL 7-18 [facility] Thin prep Papanicolaou smear with manual screeningOrdered By: Dr. Waite on 06-01-2022 Thin prep Papanicolaou smear with manual screening 3 5-15 [facility] Absolute lymphocyte countOrd ered By: Dr. Conn on 05-04-2022 Lymphocytes Auto (Unsp spec) [#/Vol] 1.95 10*3/uL 0.83-4.51 [facility] Basophil percentageOrdered B y: Dr. Conn on 05-04-2022 Basophil percentage 21.8 ug/mL 10.0-40.0 [facility] Basophil percentage 102 mg/dL 74-106 [facility] Basophil percentage 141 mmol/L 136-145 [facility] Basophil percentage 3.5 mmol/L 3.5-5.1 [facility] Basophil percentage 106 mmol/L 98-107 [facility] Basophils (Bld) [#/Vol] 5.5 10*3/uL 4.4-11.0 [facility] Basophils (Bld) [#/Vol] 2.8 10*3/uL 2.0-7.7 [facility] Basophils/100 WBC (Bld) 0.2 % 0-1 [facility] Basophils/100 WBC (Bld) 50.6 % 47-70 [facility] Basophils/100 WBC (Bld) 3.7 % 0-5 [facility] Chloride [Moles/Vol] 106 mmol/L 98-107 [facility] Eosinophils/100 WBC (Bld) 3.7 % 0-5 [facility] Glucose [Mass/Vol] 102 mg/dL 74-106 [facility] Comment on above: Fasting Glucose resu lt from 100 to 125 mg/dL suggests IMPAIRED HOMEOSTASIS per A.D.A. criteria. Neutrophils (Bld) [#/Vol] 2.8 10*3/uL 2.0-7.7 [facility] Neutrophils/100 WBC (Bld) 50.6 % 47-70 [facility] Potassium [Moles/Vol] 3.5 mmol/L 3.5-5.1 [facility] Sodium [Moles/Vol] 141 mmol/L 136-145 [facility] WBC (Bld) [#/Vol] 5.5 10*3/uL 4.4-11.0 [facility] Blood erythrocytes count (nu mber/volume)Ordered By: Dr. Conn on 05-04-2022 RBC (Bld) [#/Vol] 4.00 10*6/uL 4.6-6.2 [facility] Blood hemoglobin measurement (mass/volume)Ordered By: Dr. Conn on 05-04-2022 Hemoglobin (Bld) [Mass/Vol] 11.3 g/dL 13.0-16.5 [facility] Blood lymphocytes/100 leukoc ytesOrdered By: Dr. Conn on 05-04-2022 Lymphocytes/100 WBC (Bld) 35.6 % 19-41 [facility] Blood monocytes/100 leukocyt esOrdered By: Dr. Conn on 05-04-2022 Monocytes/100 WBC (Bld) 9.7 % 0-10 [facility] Blood platelet mean volumeOr dered By: Dr. Conn on 05-04-2022 Platelet mean volume (Bld) [Entitic vol] 10.8 fL 6.2-12.0 [facility] Determination of erythrocyte mean corpuscular volume (MCV)Ordered By: Dr. Conn on 05-04-2022 MCV (RBC) [Entitic vol] 87.3 fL 80-94 [facility] Hematocrit Auto (Bld) [Volum e fraction]Ordered By: Dr. Conn on 05-04-2022 Hematocrit (Bld) [Volume fraction] 34.9 % 40-54 [facility] Laboratory - Chemistry and C hemistry - challengeOrdered By: Dr. Conn on 05-04-2022 CO2 [Moles/Vol] 29.0 mmol/L 21.0-32.0 [facility] Urea nitrogen/Creatinine [Mass ratio] 62.5 mg/mg 10-20 [facility] Laboratory - Hematology and Cell countsOrdered By: Dr. Conn on 05-04-2022 Erythrocyte distribution width (RBC) [Entitic vol] 46.2 fL 35.1-43.9 [facility] Erythrocyte distribution width (RBC) [Ratio] 14.4 % 11.6-14.6 [facility] Immature granulocytes/100 WBC (Bld) 0.200 % 0.0-0.9 [facility] Comment on above: IG% - Immature Granu locytes (promyelocytes, myelocytes and metamyelocytes) > 1% indicates that a LEFT SHIFT is Present. MCH (RBC) [Entitic mass] 28.3 pg 27.0-32.0 [facility] Nucleated RBC/100 WBC (Bld) [Ratio] 0 % 0-5 [facility] MCHC Auto (RBC) [Mass/Vol]Or dered By: Dr. Conn on 05-04-2022 MCHC (RBC) [Mass/Vol] 32.4 g/dL 32-36 [facility] No Panel InformationOrdered By: Dr. Conn on 05-04-2022 Estimated GFR (MDRD) Amer 478 mL/min >60 [facility] Comment on above: GFR Calc Estimated GFR (MDRD) Non-Af Amer 395 mL/min >60 [facility] Comment on above: Non- GFR Calc 28.3 pg 27.0-32.0 [facility] 14.4 % 11.6-14.6 [facility] 46.2 fl 35.1-43.9 [facility] 0.200 % 0.0-0.9 [facility] 0 % 0-5 [facility] 395 mL/min >60 [facility] 478 mL/min >60 [facility] 62.5 RATIO 10-20 [facility] 29.0 mmol/L 21.0-32.0 [facility] Platelets bldOrdered By: Dr. Conn on 05-04-2022 Platelets (Bld) [#/Vol] 180 10*3/uL 150-450 [facility] Serum or plasma calcium jacinta urement (mass/volume)Ordered By: Dr. Conn on 05-04-2022 Calcium [Mass/Vol] 8.6 mg/dL 8.5-10.1 [facility] Serum or plasma creatinine m easurement (mass/volume)Ordered By: Dr. Conn on 05-04-2022 Creatinine [Mass/Vol] 0.27 mg/dL 0.70-1.30 [facility] Comment on above: The validity of the calculated GFR & GFRAA in patients over 70 years has not been determined. Clinical correlation is essential. Serum or plasma transthyreti n measurement (mass/volume)Ordered By: Dr. Conn on 05-04-2022 Prealbumin [Mass/Vol] 24.1 mg/dL 20.0-40.0 [facility] Serum or plasma urea nitroge n measurement (mass/volume)Ordered By: Dr. Conn on 05-04-2022 Urea nitrogen [Mass/Vol] 17 mg/dL 7-18 [facility] Thin prep Papanicolaou smear with manual screeningOrdered By: Dr. Conn on 05-04-2022 Thin prep Papanicolaou smear with manual screening 6 5-15 [facility] CNPNon 04-14-2022 CNPN Telephone (CORSMN) -------- KRISS MICHAEL ([id number]) 1980 Date Time Provider Department 04/14/22 Yola LEAVITT During your visit today, we recorded the following information about you: Ebony Boateng 04/14/2022 12:39 PM Signed The patient had a Colostomy done by Dr leavitt. The patient 's mother (POA) States he is having issues with prolapse of colon, would like to see what could be done about this,. [phone] Ashly (mom) Geetha Walter RN 04/14/2022 1:40 [...] Fully Assessed Reason for Visit: Patient Update [[id number]] Patient Question [7427] Prescriptions as of 04/14/2022 - baclofen (LIORESAL) [...] infection [A4 (more content not included)... Normal [facility] CNPN Telephone (fuseSPORTN) -------- KRISS MICHAEL ([id number]) 1980 M Date Time Provider Department 04/14/22 [...] p*04/05/2018 Aspiration (more content not included)... Normal [facility] Absolute lymphocyte countOrd ered By: Dr. Alexandre on 04-01-2022 Lymphocytes Auto (Unsp spec) [#/Vol] 2.64 10*3/uL 0.83-4.51 [facility] Basophil percentageOrdered B y: Dr. Alexandre on 04-01-2022 Basophil percentage 122 mg/dL 74-106 [facility] Basophil percentage 145 mmol/L 136-145 [facility] Basophil percentage 3.5 mmol/L 3.5-5.1 [facility] Basophil percentage 110 mmol/L 98-107 [facility] Basophils (Bld) [#/Vol] 6.6 10*3/uL 4.4-11.0 [facility] Basophils (Bld) [#/Vol] 3.1 10*3/uL 2.0-7.7 [facility] Basophils/100 WBC (Bld) 0.2 % 0-1 [facility] Basophils/100 WBC (Bld) 46.7 % 47-70 [facility] Basophils/100 WBC (Bld) 2.1 % 0-5 [facility] Chloride [Moles/Vol] 110 mmol/L 98-107 [facility] Eosinophils/100 WBC (Bld) 2.1 % 0-5 [facility] Glucose [Mass/Vol] 122 mg/dL 74-106 [facility] Comment on above: Fasting Glucose resu lt from 100 to 125 mg/dL suggests IMPAIRED HOMEOSTASIS per A.D.A. criteria. Neutrophils (Bld) [#/Vol] 3.1 10*3/uL 2.0-7.7 [facility] Neutrophils/100 WBC (Bld) 46.7 % 47-70 [facility] Potassium [Moles/Vol] 3.5 mmol/L 3.5-5.1 [facility] Sodium [Moles/Vol] 145 mmol/L 136-145 [facility] WBC (Bld) [#/Vol] 6.6 10*3/uL 4.4-11.0 [facility] Blood erythrocytes count (nu mber/volume)Ordered By: Dr. Alexandre on 04-01-2022 RBC (Bld) [#/Vol] 3.33 10*6/uL 4.6-6.2 [facility] Blood hemoglobin measurement (mass/volume)Ordered By: Dr. Alexandre on 04-01-2022 Hemoglobin (Bld) [Mass/Vol] 9.2 g/dL 13.0-16.5 [facility] Blood lymphocytes/100 leukoc ytesOrdered By: Dr. Alexandre on 04-01-2022 Lymphocytes/100 WBC (Bld) 39.9 % 19-41 [facility] Blood monocytes/100 leukocyt esOrdered By: Dr. Alexandre on 04-01-2022 Monocytes/100 WBC (Bld) 10.0 % 0-10 [facility] Blood platelet mean volumeOr dered By: Dr. Alexandre on 04-01-2022 Platelet mean volume (Bld) [Entitic vol] 9.6 fL 6.2-12.0 [facility] Determination of erythrocyte mean corpuscular volume (MCV)Ordered By: Dr. Alexandre on 04-01-2022 MCV (RBC) [Entitic vol] 88.6 fL 80-94 [facility] Hematocrit Auto (Bld) [Volum e fraction]Ordered By: Dr. Alexandre on 04-01-2022 Hematocrit (Bld) [Volume fraction] 29.5 % 40-54 [facility] Laboratory - Chemistry and C hemistry - challengeOrdered By: Dr. Alexandre on 04-01-2022 CO2 [Moles/Vol] 29.0 mmol/L 21.0-32.0 [facility] Urea nitrogen/Creatinine [Mass ratio] 43.7 mg/mg 10-20 [facility] Laboratory - Hematology and Cell countsOrdered By: Dr. Alexandre on 04-01-2022 Erythrocyte distribution width (RBC) [Entitic vol] 48.4 fL 35.1-43.9 [facility] Erythrocyte distribution width (RBC) [Ratio] 15.0 % 11.6-14.6 [facility] Immature granulocytes/100 WBC (Bld) 1.100 % 0.0-0.9 [facility] Comment on above: IG% - Immature Granu locytes (promyelocytes, myelocytes and metamyelocytes) > 1% indicates that a LEFT SHIFT is Present. MCH (RBC) [Entitic mass] 27.6 pg 27.0-32.0 [facility] Nucleated RBC/100 WBC (Bld) [Ratio] 0 % 0-5 [facility] MCHC Auto (RBC) [Mass/Vol]Or dered By: Dr. Alexandre on 04-01-2022 MCHC (RBC) [Mass/Vol] 31.2 g/dL 32-36 [facility] No Panel InformationOrdered By: Dr. Alexandre on 04-01-2022 Estimated Creatinine Clearance Calc 460.75 ml/min [facility] Estimated GFR (MDRD) Amer 583 mL/min >60 [facility] Comment on above: GFR Calc Estimated GFR (MDRD) Non-Af Amer 482 mL/min >60 [facility] Comment on above: Non- GFR Calc 27.6 pg 27.0-32.0 [facility] 15.0 % 11.6-14.6 [facility] 48.4 fl 35.1-43.9 [facility] 1.100 % 0.0-0.9 [facility] 0 % 0-5 [facility] 482 mL/min >60 [facility] 583 mL/min >60 [facility] 460.75 ml/min [facility] 43.7 RATIO 10-20 [facility] 29.0 mmol/L 21.0-32.0 [facility] Platelets bldOrdered By: Dr. Alexandre on 04-01-2022 Platelets (Bld) [#/Vol] 237 10*3/uL 150-450 [facility] Serum or plasma calcium jacinta urement (mass/volume)Ordered By: Dr. Alexandre on 04-01-2022 Calcium [Mass/Vol] 8.2 mg/dL 8.5-10.1 [facility] Serum or plasma creatinine m easurement (mass/volume)Ordered By: Dr. Alexandre on 04-01-2022 Creatinine [Mass/Vol] 0.23 mg/dL 0.70-1.30 [facility] Comment on above: The validity of the calculated GFR & GFRAA in patients over 70 years has not been determined. Clinical correlation is essential. Serum or plasma urea nitroge n measurement (mass/volume)Ordered By: Dr. Alexandre on 04-01-2022 Urea nitrogen [Mass/Vol] 10 mg/dL 7-18 [facility] Thin prep Papanicolaou smear with manual screeningOrdered By: Dr. Alexandre on 04-01-2022 Thin prep Papanicolaou smear with manual screening 6 5-15 [facility] Basophil percentageOrdered B y: Dr. Dillard on 03-30-2022 Basophil percentage 7.2 g/dL 6.4-8.2 [facility] Basophil percentage 0.20 mg/dL 0.20-1.00 [facility] Bilirubin [Mass/Vol] 0.20 mg/dL 0.20-1.00 [facility] Comment on above: For patients on eltr ombopag therapy, use of Dimension Horner TBIL is not recommended. Protein [Mass/Vol] 7.2 g/dL 6.4-8.2 [facility] Laboratory - Chemistry and C hemistry - challengeOrdered By: Dr. Dillard on 03-30-2022 ALP [Catalytic activity/Vol] 79 U/L 45-117 [facility] ALT [Catalytic activity/Vol] 19 U/L 16-61 [facility] Globulin (S) [Mass/Vol] 4.5 g/dL 2.2-4.2 [facility] Laboratory - Microbiology an d Antimicrobial susceptibilityOrdered By: Dr. De La Torre on 03-30-2022 Bacteria identified Cx Nom (Bld) No growth in 5 days. [facility] No Panel InformationOrdered By: Dr. Dillard on 03-30-2022 4.5 g/dL 2.2-4.2 [facility] 79 U/L 45-117 [facility] 19 U/L 16-61 [facility] No Panel InformationOrdered By: Dr. De La Torre on 03-30-2022 No growth in 5 days. [facility] Serum or plasma albumin jacinta urement (mass/volume)Ordered By: Dr. Dillard on 03-30-2022 Albumin [Mass/Vol] 2.7 g/dL 3.2-5.0 [facility] Serum or plasma albumin/glob ulin mass ratioOrdered By: Dr. Dillard on 03-30-2022 Albumin/Globulin [Mass ratio] 0.6 {ratio} 0.9-2.4 [facility] Thin prep Papanicolaou smear with manual screeningOrdered By: Dr. Dillard on 03-30-2022 Thin prep Papanicolaou smear with manual screening 9 U/L 15-37 [facility] Bacteria identified Respirat ory culture Nom (Unsp spec)Ordered By: Dr. De La Torre on 03-27-2022 Respiratory Culture Proteus mirabilis [facility] Respiratory Culture Streptococcus agalactiae (B) [facility] Microbial respiratory culture Proteus mirabilis [facility] Microbial respiratory culture Streptococcus agalactiae (B) [facility] Basophil percentageOrdered B y: Dr. Dillard on 03-25-2022 Basophil percentage 0.7 mmol/L 0.4-2.0 [facility] Lactate [Moles/Vol] 0.7 mmol/L 0.4-2.0 [facility] Gram stain for investigation of transfusion reactionOrdered By: Dr. De La Torre on 03-25-2022 Microscopic observation Gram stain Nom (Unsp spec) [facility] Laboratory - Microbiology an d Antimicrobial susceptibilityOrdered By: Dr. Echavarria on 03-25-2022 Respiratory pathogens DNA and RNA 12b panel YAYO+probe (Unsp spec) [facility] Absolute lymphocyte countOrd ered By: Dr. De La Torre on 03-24-2022 Lymphocytes Auto (Unsp spec) [#/Vol] 0.99 10*3/uL 0.83-4.51 [facility] Basophil percentageOrdered B y: Dr. De La Torre on 03-24-2022 Basophil percentage 2.9 mmol/L 0.4-2.0 [facility] Basophil percentage 0-5 SEEN /hpf 0-5 [facility] Basophil percentage 145 mg/dL 74-106 [facility] Basophil percentage 133 mmol/L 136-145 [facility] Basophil percentage 3.8 mmol/L 3.5-5.1 [facility] Basophil percentage 99 mmol/L 98-107 [facility] Basophils (Bld) [#/Vol] 7.5 10*3/uL 4.4-11.0 [facility] Basophils (Bld) [#/Vol] 6.0 10*3/uL 2.0-7.7 [facility] Basophils/100 WBC (Bld) 0.3 % 0-1 [facility] Basophils/100 WBC (Bld) 79.9 % 47-70 [facility] Basophils/100 WBC (Bld) 1.3 % 0-5 [facility] Chloride [Moles/Vol] 99 mmol/L 98-107 [facility] Eosinophils/100 WBC (Bld) 1.3 % 0-5 [facility] Glucose [Mass/Vol] 145 mg/dL 74-106 [facility] Comment on above: Fasting Glucose resu lt greater than or equal to 126 mg/dL suggests DIABETES MELLITUS per A.D.A. criteria. Lactate [Moles/Vol] 2.7 mmol/L 0.4-2.0 [facility] Comment on above: Critical Result(s) C alled at: 18:44:06 03/24/2022 by: MARIBEL SEARS TO [place]. Results read back by same. Neutrophils (Bld) [#/Vol] 6.0 10*3/uL 2.0-7.7 [facility] Neutrophils/100 WBC (Bld) 79.9 % 47-70 [facility] Potassium [Moles/Vol] 3.8 mmol/L 3.5-5.1 [facility] Sodium [Moles/Vol] 133 mmol/L 136-145 [facility] WBC (Bld) [#/Vol] 7.5 10*3/uL 4.4-11.0 [facility] Basophil percentageOrdered B y: Dr. Echavarria on 03-24-2022 Basophil percentage 8.3 g/dL 6.4-8.2 [facility] Basophil percentage 0.30 mg/dL 0.20-1.00 [facility] Bilirubin Test strip Ql (U)O rdered By: Dr. De La Torre on 03-24-2022 Bilirubin Ql (U) Negative Negative [facility] Blood erythrocytes count (nu mber/volume)Ordered By: Dr. De La Torre on 03-24-2022 RBC (Bld) [#/Vol] 4.25 10*6/uL 4.6-6.2 [facility] Blood hemoglobin measurement (mass/volume)Ordered By: Dr. De La Torre on 03-24-2022 Hemoglobin (Bld) [Mass/Vol] 11.5 g/dL 13.0-16.5 [facility] Blood lymphocytes/100 leukoc ytesOrdered By: Dr. De La Torre on 03-24-2022 Lymphocytes/100 WBC (Bld) 13.1 % 19-41 [facility] Blood monocytes/100 leukocyt esOrdered By: Dr. De La Torre on 03-24-2022 Monocytes/100 WBC (Bld) 5.3 % 0-10 [facility] Blood platelet mean volumeOr dered By: Dr. De La Torre on 03-24-2022 Platelet mean volume (Bld) [Entitic vol] 10.4 fL 6.2-12.0 [facility] Determination of erythrocyte mean corpuscular volume (MCV)Ordered By: Dr. De La Torre on 03-24-2022 MCV (RBC) [Entitic vol] 85.4 fL 80-94 [facility] Direct bilirubinOrdered By: Dr. Echavarria on 03-24-2022 Bilirubin.direct [Mass/Vol] 0.07 mg/dL 0.00-0.30 [facility] Hematocrit Auto (Bld) [Volum e fraction]Ordered By: Dr. De La Torre on 03-24-2022 Hematocrit (Bld) [Volume fraction] 36.3 % 40-54 [facility] Influenza virus A and B and SARS-CoV-2 (COVID-19) Ag panel - Upper respiratory specimOrdered By: Dr. De La Torre on 03-24-2022 SARS-CoV-2 (COVID-19) RNA YAYO+probe Ql (Resp) [facility] Ketones Test strip Ql (U)Ord ered By: Dr. De La Torre on 03-24-2022 Ketones Ql (U) 15 mg/dl Negative [facility] Laboratory - Chemistry and C hemistry - challengeOrdered By: Dr. De La Torre on 03-24-2022 CO2 [Moles/Vol] 23.0 mmol/L 21.0-32.0 [facility] Urea nitrogen/Creatinine [Mass ratio] 22.2 mg/mg 10-20 [facility] Laboratory - Hematology and Cell countsOrdered By: Dr. De La Torre on 03-24-2022 Erythrocyte distribution width (RBC) [Entitic vol] 43.3 fL 35.1-43.9 [facility] Erythrocyte distribution width (RBC) [Ratio] 14.0 % 11.6-14.6 [facility] Immature granulocytes/100 WBC (Bld) 0.100 % 0.0-0.9 [facility] Comment on above: IG% - Immature Granu locytes (promyelocytes, myelocytes and metamyelocytes) > 1% indicates that a LEFT SHIFT is Present. MCH (RBC) [Entitic mass] 27.1 pg 27.0-32.0 [facility] Nucleated RBC/100 WBC (Bld) [Ratio] 0 % 0-5 [facility] MCHC Auto (RBC) [Mass/Vol]Or dered By: Dr. De La Torre on 03-24-2022 MCHC (RBC) [Mass/Vol] 31.7 g/dL 32-36 [facility] Mucus LM Ql (Urine sed)Order ed By: Dr. De La Torre on 03-24-2022 Mucus Ql (Urine sed) 0 SEEN /hpf [facility] Nitrite Test strip Ql (U)Ord ered By: Dr. De La Torre on 03-24-2022 Nitrite Ql (U) Negative Negative [facility] No Panel InformationOrdered By: Dr. De La Torre on 03-24-2022 Estimated Creatinine Clearance Calc 154.32 ml/min [facility] Estimated GFR (MDRD) Amer 267 mL/min >60 [facility] Comment on above: GFR Calc Estimated GFR (MDRD) Non-Af Amer 220 mL/min >60 [facility] Comment on above: Non- GFR Calc 27.1 pg 27.0-32.0 [facility] 14.0 % 11.6-14.6 [facility] 43.3 fl 35.1-43.9 [facility] 0.100 % 0.0-0.9 [facility] 0 % 0-5 [facility] 220 mL/min >60 [facility] 267 mL/min >60 [facility] 154.32 ml/min [facility] 22.2 RATIO 10-20 [facility] 23.0 mmol/L 21.0-32.0 [facility] No Panel InformationOrdered By: Dr. Echavarria on 03-24-2022 4.9 g/dL 2.2-4.2 [facility] 137 U/L 45-117 [facility] 20 U/L 16-61 [facility] Platelets bldOrdered By: Dr. De La Torre on 03-24-2022 Platelets (Bld) [#/Vol] 141 10*3/uL 150-450 [facility] Protein Test strip Ql (U)Ord ered By: Dr. De La Torre on 03-24-2022 Protein Ql (U) 30 mg/dl Negative [facility] Serum or plasma albumin jacinta urement (mass/volume)Ordered By: Dr. Echavarria on 03-24-2022 Albumin [Mass/Vol] 3.4 g/dL 3.2-5.0 [facility] Serum or plasma calcium jacinta urement (mass/volume)Ordered By: Dr. De La Torre on 03-24-2022 Calcium [Mass/Vol] 8.6 mg/dL 8.5-10.1 [facility] Serum or plasma creatinine m easurement (mass/volume)Ordered By: Dr. De La Torre on 03-24-2022 Creatinine [Mass/Vol] 0.45 mg/dL 0.70-1.30 [facility] Comment on above: The validity of the calculated GFR & GFRAA in patients over 70 years has not been determined. Clinical correlation is essential. Serum or plasma urea nitroge n measurement (mass/volume)Ordered By: Dr. De La Torre on 03-24-2022 Urea nitrogen [Mass/Vol] 10 mg/dL 7-18 [facility] Squamous epithelial cells de tection in urine sediment by light microscopyOrdered By: Dr. De La Torre on 03-24-2022 Epithelial cells.squamous LM Ql (Urine sed) 0 SEEN /hpf 0-5 [facility] Thin prep Papanicolaou smear with manual screeningOrdered By: Dr. De La Torre on 03-24-2022 Thin prep Papanicolaou smear with manual screening 11 5-15 [facility] Thin prep Papanicolaou smear with manual screeningOrdered By: Dr. Echavarria on 03-24-2022 Thin prep Papanicolaou smear with manual screening 22 U/L 15-37 [facility] Urine blood detectionOrdered By: Dr. De La Torre on 03-24-2022 RBC Ql (U) 10 /ul Negative [facility] RBC Ql (U) 0-5 SEEN /hpf 0-5 [facility] Urine clarityOrdered By: Dr. De La Torre on 03-24-2022 Clarity (U) Clear Clear [facility] Urine color determinationOrd ered By: Dr. De La Torre on 03-24-2022 Color (U) Yellow Yellow [facility] Urine glucose detectionOrder ed By: Dr. De La Torre on 03-24-2022 Glucose Ql (U) Normal mg/dl Normal [facility] Urine leukocyte esterase det ection by dipstickOrdered By: Dr. De La Torre on 03-24-2022 Leukocyte esterase Test strip Ql (U) 25 /ul Negative [facility] Urine pHOrdered By: Dr. Walter hidalgo on 03-24-2022 pH (U) 7.0 [pH] 5.0 - 8.0 [facility] Urine sediment bacteria coun t by microscopy (number/high power field)Ordered By: Dr. De La Torre on 03-24-2022 Bacteria LM.HPF (Urine sed) [#/Area] 0 /[HPF] None Seen [facility] Urine specific gravity measu rementOrdered By: Dr. De La Torre on 03-24-2022 Specific gravity (U) [Rel density] 1.005 1.002-1.030 [facility] Urobilinogen Auto test strip Ql (U)Ordered By: Dr. De La Torre on 03-24-2022 Urobilinogen Ql (U) Normal mg/dl Normal [facility] Absolute lymphocyte countOrd ered By: Dr. Waite on 03-23-2022 Lymphocytes Auto (Unsp spec) [#/Vol] 1.82 10*3/uL 0.83-4.51 [facility] Basophil percentageOrdered B y: Dr. Waite on 03-23-2022 Basophil percentage 104 mg/dL 74-106 [facility] Basophil percentage 139 mmol/L 136-145 [facility] Basophil percentage 3.8 mmol/L 3.5-5.1 [facility] Basophil percentage 104 mmol/L 98-107 [facility] Basophils (Bld) [#/Vol] 6.6 10*3/uL 4.4-11.0 [facility] Basophils (Bld) [#/Vol] 3.9 10*3/uL 2.0-7.7 [facility] Basophils/100 WBC (Bld) 0.2 % 0-1 [facility] Basophils/100 WBC (Bld) 59.9 % 47-70 [facility] Basophils/100 WBC (Bld) 3.8 % 0-5 [facility] Chloride [Moles/Vol] 104 mmol/L 98-107 [facility] Eosinophils/100 WBC (Bld) 3.8 % 0-5 [facility] Glucose [Mass/Vol] 104 mg/dL 74-106 [facility] Comment on above: Fasting Glucose resu lt from 100 to 125 mg/dL suggests IMPAIRED HOMEOSTASIS per A.D.A. criteria. Neutrophils (Bld) [#/Vol] 3.9 10*3/uL 2.0-7.7 [facility] Neutrophils/100 WBC (Bld) 59.9 % 47-70 [facility] Potassium [Moles/Vol] 3.8 mmol/L 3.5-5.1 [facility] Sodium [Moles/Vol] 139 mmol/L 136-145 [facility] WBC (Bld) [#/Vol] 6.6 10*3/uL 4.4-11.0 [facility] Blood erythrocytes count (nu mber/volume)Ordered By: Dr. Waite on 03-23-2022 RBC (Bld) [#/Vol] 4.00 10*6/uL 4.6-6.2 [facility] Blood hemoglobin measurement (mass/volume)Ordered By: Dr. Waite on 03-23-2022 Hemoglobin (Bld) [Mass/Vol] 10.8 g/dL 13.0-16.5 [facility] Blood lymphocytes/100 leukoc ytesOrdered By: Dr. Waite on 03-23-2022 Lymphocytes/100 WBC (Bld) 27.7 % 19-41 [facility] Blood monocytes/100 leukocyt esOrdered By: Dr. Waite on 03-23-2022 Monocytes/100 WBC (Bld) 7.9 % 0-10 [facility] Blood platelet mean volumeOr dered By: Dr. Waite on 03-23-2022 Platelet mean volume (Bld) [Entitic vol] 10.2 fL 6.2-12.0 [facility] Determination of erythrocyte mean corpuscular volume (MCV)Ordered By: Dr. Waite on 03-23-2022 MCV (RBC) [Entitic vol] 86.0 fL 80-94 [facility] Hematocrit Auto (Bld) [Volum e fraction]Ordered By: Dr. Waite on 03-23-2022 Hematocrit (Bld) [Volume fraction] 34.4 % 40-54 [facility] Laboratory - Chemistry and C hemistry - challengeOrdered By: Dr. Waite on 03-23-2022 CO2 [Moles/Vol] 31.0 mmol/L 21.0-32.0 [facility] Urea nitrogen/Creatinine [Mass ratio] 60.0 mg/mg 10-20 [facility] Laboratory - Hematology and Cell countsOrdered By: Dr. Waite on 03-23-2022 Erythrocyte distribution width (RBC) [Entitic vol] 43.8 fL 35.1-43.9 [facility] Erythrocyte distribution width (RBC) [Ratio] 13.9 % 11.6-14.6 [facility] Immature granulocytes/100 WBC (Bld) 0.500 % 0.0-0.9 [facility] Comment on above: IG% - Immature Granu locytes (promyelocytes, myelocytes and metamyelocytes) > 1% indicates that a LEFT SHIFT is Present. MCH (RBC) [Entitic mass] 27.0 pg 27.0-32.0 [facility] Nucleated RBC/100 WBC (Bld) [Ratio] 0 % 0-5 [facility] MCHC Auto (RBC) [Mass/Vol]Or dered By: Dr. Waite on 03-23-2022 MCHC (RBC) [Mass/Vol] 31.4 g/dL 32-36 [facility] No Panel InformationOrdered By: Dr. Waite on 03-23-2022 Estimated GFR (MDRD) Amer 527 mL/min >60 [facility] Comment on above: GFR Calc Estimated GFR (MDRD) Non-Af Amer 435 mL/min >60 [facility] Comment on above: Non- GFR Calc 27.0 pg 27.0-32.0 [facility] 13.9 % 11.6-14.6 [facility] 43.8 fl 35.1-43.9 [facility] 0.500 % 0.0-0.9 [facility] 0 % 0-5 [facility] 435 mL/min >60 [facility] 527 mL/min >60 [facility] 60.0 RATIO 10-20 [facility] 31.0 mmol/L 21.0-32.0 [facility] Platelets bldOrdered By: Dr. Waite on 03-23-2022 Platelets (Bld) [#/Vol] 169 10*3/uL 150-450 [facility] Serum or plasma calcium jacinta urement (mass/volume)Ordered By: Dr. Waite on 03-23-2022 Calcium [Mass/Vol] 8.3 mg/dL 8.5-10.1 [facility] Serum or plasma creatinine m easurement (mass/volume)Ordered By: Dr. Waite on 03-23-2022 Creatinine [Mass/Vol] 0.25 mg/dL 0.70-1.30 [facility] Comment on above: The validity of the calculated GFR & GFRAA in patients over 70 years has not been determined. Clinical correlation is essential. Serum or plasma urea nitroge n measurement (mass/volume)Ordered By: Dr. Waite on 03-23-2022 Urea nitrogen [Mass/Vol] 15 mg/dL 7-18 [facility] Thin prep Papanicolaou smear with manual screeningOrdered By: Dr. Waite on 03-23-2022 Thin prep Papanicolaou smear with manual screening 4 5-15 [facility] Absolute lymphocyte countOrd ered By: Dr. De La Torre on 02-24-2022 Lymphocytes Auto (Unsp spec) [#/Vol] 2.18 10*3/uL 0.83-4.51 [facility] Basophil percentageOrdered B y: Dr. De La Torre on 02-24-2022 Basophil percentage 110 mg/dL 74-106 [facility] Basophil percentage 8.8 g/dL 6.4-8.2 [facility] Basophil percentage 0.20 mg/dL 0.20-1.00 [facility] Basophil percentage 135 mmol/L 136-145 [facility] Basophil percentage 4.2 mmol/L 3.5-5.1 [facility] Basophil percentage 102 mmol/L 98-107 [facility] Basophils (Bld) [#/Vol] 7.9 10*3/uL 4.4-11.0 [facility] Basophils (Bld) [#/Vol] 4.6 10*3/uL 2.0-7.7 [facility] Basophils/100 WBC (Bld) 0.3 % 0-1 [facility] Basophils/100 WBC (Bld) 58.7 % 47-70 [facility] Basophils/100 WBC (Bld) 4.4 % 0-5 [facility] Bilirubin [Mass/Vol] 0.20 mg/dL 0.20-1.00 [facility] Comment on above: For patients on eltr ombopag therapy, use of Dimension Horner TBIL is not recommended. Chloride [Moles/Vol] 102 mmol/L 98-107 [facility] Eosinophils/100 WBC (Bld) 4.4 % 0-5 [facility] Glucose [Mass/Vol] 110 mg/dL 74-106 [facility] Comment on above: Fasting Glucose resu lt from 100 to 125 mg/dL suggests IMPAIRED HOMEOSTASIS per A.D.A. criteria. Neutrophils (Bld) [#/Vol] 4.6 10*3/uL 2.0-7.7 [facility] Neutrophils/100 WBC (Bld) 58.7 % 47-70 [facility] Potassium [Moles/Vol] 4.2 mmol/L 3.5-5.1 [facility] Protein [Mass/Vol] 8.8 g/dL 6.4-8.2 [facility] Sodium [Moles/Vol] 135 mmol/L 136-145 [facility] WBC (Bld) [#/Vol] 7.9 10*3/uL 4.4-11.0 [facility] Blood erythrocytes count (nu mber/volume)Ordered By: Dr. De La Torre on 02-24-2022 RBC (Bld) [#/Vol] 4.41 10*6/uL 4.6-6.2 [facility] Blood hemoglobin measurement (mass/volume)Ordered By: Dr. De La Torre on 02-24-2022 Hemoglobin (Bld) [Mass/Vol] 12.1 g/dL 13.0-16.5 [facility] Blood lymphocytes/100 leukoc ytesOrdered By: Dr. De La Torre on 02-24-2022 Lymphocytes/100 WBC (Bld) 27.6 % 19-41 [facility] Blood monocytes/100 leukocyt esOrdered By: Dr. De La Torre on 02-24-2022 Monocytes/100 WBC (Bld) 8.7 % 0-10 [facility] Blood platelet mean volumeOr dered By: Dr. De La Torre on 02-24-2022 Platelet mean volume (Bld) [Entitic vol] 9.7 fL 6.2-12.0 [facility] Determination of erythrocyte mean corpuscular volume (MCV)Ordered By: Dr. De La Torre on 02-24-2022 MCV (RBC) [Entitic vol] 85.0 fL 80-94 [facility] Hematocrit Auto (Bld) [Volum e fraction]Ordered By: Dr. De La Torre on 02-24-2022 Hematocrit (Bld) [Volume fraction] 37.5 % 40-54 [facility] Laboratory - Chemistry and C hemistry - challengeOrdered By: Dr. De La Torre on 02-24-2022 ALP [Catalytic activity/Vol] 162 U/L 45-117 [facility] ALT [Catalytic activity/Vol] 23 U/L 16-61 [facility] CO2 [Moles/Vol] 26.0 mmol/L 21.0-32.0 [facility] Globulin (S) [Mass/Vol] 5.4 g/dL 2.2-4.2 [facility] Urea nitrogen/Creatinine [Mass ratio] 34.3 mg/mg 10-20 [facility] Laboratory - Hematology and Cell countsOrdered By: Dr. De La Torre on 02-24-2022 Erythrocyte distribution width (RBC) [Entitic vol] 41.9 fL 35.1-43.9 [facility] Erythrocyte distribution width (RBC) [Ratio] 13.4 % 11.6-14.6 [facility] Immature granulocytes/100 WBC (Bld) 0.300 % 0.0-0.9 [facility] Comment on above: IG% - Immature Granu locytes (promyelocytes, myelocytes and metamyelocytes) > 1% indicates that a LEFT SHIFT is Present. MCH (RBC) [Entitic mass] 27.4 pg 27.0-32.0 [facility] Nucleated RBC/100 WBC (Bld) [Ratio] 0 % 0-5 [facility] MCHC Auto (RBC) [Mass/Vol]Or dered By: Dr. De La Torre on 02-24-2022 MCHC (RBC) [Mass/Vol] 32.3 g/dL 32-36 [facility] No Panel InformationOrdered By: Dr. De La Torre on 02-24-2022 Estimated Creatinine Clearance Calc 169.38 ml/min [facility] Estimated GFR (MDRD) Amer 299 mL/min >60 [facility] Comment on above: GFR Calc Estimated GFR (MDRD) Non-Af Amer 247 mL/min >60 [facility] Comment on above: Non- GFR Calc 27.4 pg 27.0-32.0 [facility] 13.4 % 11.6-14.6 [facility] 41.9 fl 35.1-43.9 [facility] 0.300 % 0.0-0.9 [facility] 0 % 0-5 [facility] 247 mL/min >60 [facility] 299 mL/min >60 [facility] 169.38 ml/min [facility] 34.3 RATIO 10-20 [facility] 5.4 g/dL 2.2-4.2 [facility] 162 U/L 45-117 [facility] 23 U/L 16-61 [facility] 26.0 mmol/L 21.0-32.0 [facility] Platelets bldOrdered By: Dr. De La Torre on 02-24-2022 Platelets (Bld) [#/Vol] 210 10*3/uL 150-450 [facility] Serum or plasma albumin jacinta urement (mass/volume)Ordered By: Dr. De La Torre on 02-24-2022 Albumin [Mass/Vol] 3.4 g/dL 3.2-5.0 [facility] Serum or plasma albumin/glob ulin mass ratioOrdered By: Dr. De La Torre on 02-24-2022 Albumin/Globulin [Mass ratio] 0.6 {ratio} 0.9-2.4 [facility] Serum or plasma calcium jacinta urement (mass/volume)Ordered By: Dr. De La Torre on 02-24-2022 Calcium [Mass/Vol] 9.0 mg/dL 8.5-10.1 [facility] Serum or plasma creatinine m easurement (mass/volume)Ordered By: Dr. De La Torre on 02-24-2022 Creatinine [Mass/Vol] 0.41 mg/dL 0.70-1.30 [facility] Comment on above: The validity of the calculated GFR & GFRAA in patients over 70 years has not been determined. Clinical correlation is essential. Serum or plasma urea nitroge n measurement (mass/volume)Ordered By: Dr. De La Torre on 02-24-2022 Urea nitrogen [Mass/Vol] 14 mg/dL 7-18 [facility] Thin prep Papanicolaou smear with manual screeningOrdered By: Dr. De La Torre on 02-24-2022 Thin prep Papanicolaou smear with manual screening 11 U/L 15-37 [facility] Thin prep Papanicolaou smear with manual screening 7 5-15 [facility] Absolute lymphocyte countOrd ered By: Dr. Waite on 02-06-2022 Lymphocytes Auto (Unsp spec) [#/Vol] 1.84 10*3/uL 0.83-4.51 [facility] Basophil percentageOrdered B y: Dr. Waite on 02-06-2022 Basophil percentage 113 mg/dL 74-106 [facility] Basophil percentage 138 mmol/L 136-145 [facility] Basophil percentage 3.8 mmol/L 3.5-5.1 [facility] Basophil percentage 103 mmol/L 98-107 [facility] Basophils (Bld) [#/Vol] 7.8 10*3/uL 4.4-11.0 [facility] Basophils (Bld) [#/Vol] 5.1 10*3/uL 2.0-7.7 [facility] Basophils/100 WBC (Bld) 0.1 % 0-1 [facility] Basophils/100 WBC (Bld) 65.4 % 47-70 [facility] Basophils/100 WBC (Bld) 4.0 % 0-5 [facility] Chloride [Moles/Vol] 103 mmol/L 98-107 [facility] Eosinophils/100 WBC (Bld) 4.0 % 0-5 [facility] Glucose [Mass/Vol] 113 mg/dL 74-106 [facility] Comment on above: Fasting Glucose resu lt from 100 to 125 mg/dL suggests IMPAIRED HOMEOSTASIS per A.D.A. criteria. Neutrophils (Bld) [#/Vol] 5.1 10*3/uL 2.0-7.7 [facility] Neutrophils/100 WBC (Bld) 65.4 % 47-70 [facility] Potassium [Moles/Vol] 3.8 mmol/L 3.5-5.1 [facility] Sodium [Moles/Vol] 138 mmol/L 136-145 [facility] WBC (Bld) [#/Vol] 7.8 10*3/uL 4.4-11.0 [facility] Blood erythrocytes count (nu mber/volume)Ordered By: Dr. Waite on 02-06-2022 RBC (Bld) [#/Vol] 4.00 10*6/uL 4.6-6.2 [facility] Blood hemoglobin measurement (mass/volume)Ordered By: Dr. Waite on 02-06-2022 Hemoglobin (Bld) [Mass/Vol] 11.5 g/dL 13.0-16.5 [facility] Blood lymphocytes/100 leukoc ytesOrdered By: Dr. Waite on 02-06-2022 Lymphocytes/100 WBC (Bld) 23.5 % 19-41 [facility] Blood monocytes/100 leukocyt esOrdered By: Dr. Waite on 02-06-2022 Monocytes/100 WBC (Bld) 6.9 % 0-10 [facility] Blood platelet mean volumeOr dered By: Dr. Waite on 02-06-2022 Platelet mean volume (Bld) [Entitic vol] 9.8 fL 6.2-12.0 [facility] Determination of erythrocyte mean corpuscular volume (MCV)Ordered By: Dr. Waite on 02-06-2022 MCV (RBC) [Entitic vol] 86.0 fL 80-94 [facility] Hematocrit Auto (Bld) [Volum e fraction]Ordered By: Dr. Waite on 02-06-2022 Hematocrit (Bld) [Volume fraction] 34.4 % 40-54 [facility] Laboratory - Chemistry and C hemistry - challengeOrdered By: Dr. Waite on 02-06-2022 CO2 [Moles/Vol] 29.0 mmol/L 21.0-32.0 [facility] Urea nitrogen/Creatinine [Mass ratio] 55.6 mg/mg 10-20 [facility] Laboratory - Hematology and Cell countsOrdered By: Dr. Waite on 02-06-2022 Erythrocyte distribution width (RBC) [Entitic vol] 43.1 fL 35.1-43.9 [facility] Erythrocyte distribution width (RBC) [Ratio] 13.8 % 11.6-14.6 [facility] Immature granulocytes/100 WBC (Bld) 0.100 % 0.0-0.9 [facility] Comment on above: IG% - Immature Granu locytes (promyelocytes, myelocytes and metamyelocytes) > 1% indicates that a LEFT SHIFT is Present. MCH (RBC) [Entitic mass] 28.8 pg 27.0-32.0 [facility] Nucleated RBC/100 WBC (Bld) [Ratio] 0 % 0-5 [facility] MCHC Auto (RBC) [Mass/Vol]Or dered By: Dr. Waite on 02-06-2022 MCHC (RBC) [Mass/Vol] 33.4 g/dL 32-36 [facility] No Panel InformationOrdered By: Dr. Waite on 02-06-2022 Estimated GFR (MDRD) Amer 482 mL/min >60 [facility] Comment on above: GFR Calc Estimated GFR (MDRD) Non-Af Amer 399 mL/min >60 [facility] Comment on above: Non- GFR Calc 28.8 pg 27.0-32.0 [facility] 13.8 % 11.6-14.6 [facility] 43.1 fl 35.1-43.9 [facility] 0.100 % 0.0-0.9 [facility] 0 % 0-5 [facility] 399 mL/min >60 [facility] 482 mL/min >60 [facility] 55.6 RATIO 10-20 [facility] 29.0 mmol/L 21.0-32.0 [facility] Platelets bldOrdered By: Dr. Waite on 02-06-2022 Platelets (Bld) [#/Vol] 171 10*3/uL 150-450 [facility] Serum or plasma calcium jacinta urement (mass/volume)Ordered By: Dr. Waite on 02-06-2022 Calcium [Mass/Vol] 8.3 mg/dL 8.5-10.1 [facility] Serum or plasma creatinine m easurement (mass/volume)Ordered By: Dr. Waite on 02-06-2022 Creatinine [Mass/Vol] 0.27 mg/dL 0.70-1.30 [facility] Comment on above: The validity of the calculated GFR & GFRAA in patients over 70 years has not been determined. Clinical correlation is essential. Serum or plasma urea nitroge n measurement (mass/volume)Ordered By: Dr. Waite on 02-06-2022 Urea nitrogen [Mass/Vol] 15 mg/dL 7-18 [facility] Thin prep Papanicolaou smear with manual screeningOrdered By: Dr. Waite on 02-06-2022 Thin prep Papanicolaou smear with manual screening 6 5-15 [facility] Absolute lymphocyte countOrd ered By: Dr. Waite on 01-05-2022 Lymphocytes Auto (Unsp spec) [#/Vol] 2.32 10*3/uL 0.83-4.51 [facility] Basophil percentageOrdered B y: Dr. Waite on 01-05-2022 Basophil percentage 87 mg/dL 74-106 [facility] Basophil percentage 7.5 g/dL 6.4-8.2 [facility] Basophil percentage 0.20 mg/dL 0.20-1.00 [facility] Basophil percentage 139 mmol/L 136-145 [facility] Basophil percentage 4.2 mmol/L 3.5-5.1 [facility] Basophil percentage 102 mmol/L 98-107 [facility] Basophils (Bld) [#/Vol] 6.3 10*3/uL 4.4-11.0 [facility] Basophils (Bld) [#/Vol] 2.9 10*3/uL 2.0-7.7 [facility] Basophils/100 WBC (Bld) 0.5 % 0-1 [facility] Basophils/100 WBC (Bld) 45.8 % 47-70 [facility] Basophils/100 WBC (Bld) 8.0 % 0-5 [facility] Bilirubin [Mass/Vol] 0.20 mg/dL 0.20-1.00 [facility] Comment on above: For patients on eltr ombopag therapy, use of Dimension Horner TBIL is not recommended. Chloride [Moles/Vol] 102 mmol/L 98-107 [facility] Eosinophils/100 WBC (Bld) 8.0 % 0-5 [facility] Glucose [Mass/Vol] 87 mg/dL 74-106 [facility] Neutrophils (Bld) [#/Vol] 2.9 10*3/uL 2.0-7.7 [facility] Neutrophils/100 WBC (Bld) 45.8 % 47-70 [facility] Potassium [Moles/Vol] 4.2 mmol/L 3.5-5.1 [facility] Protein [Mass/Vol] 7.5 g/dL 6.4-8.2 [facility] Sodium [Moles/Vol] 139 mmol/L 136-145 [facility] WBC (Bld) [#/Vol] 6.3 10*3/uL 4.4-11.0 [facility] Blood erythrocytes count (nu mber/volume)Ordered By: Dr. Waite on 01-05-2022 RBC (Bld) [#/Vol] 4.05 10*6/uL 4.6-6.2 [facility] Blood hemoglobin measurement (mass/volume)Ordered By: Dr. Waite on 01-05-2022 Hemoglobin (Bld) [Mass/Vol] 11.6 g/dL 13.0-16.5 [facility] Blood lymphocytes/100 leukoc ytesOrdered By: Dr. Waite on 01-05-2022 Lymphocytes/100 WBC (Bld) 37.0 % 19-41 [facility] Blood monocytes/100 leukocyt esOrdered By: Dr. Waite on 01-05-2022 Monocytes/100 WBC (Bld) 8.5 % 0-10 [facility] Blood platelet mean volumeOr dered By: Dr. Waite on 01-05-2022 Platelet mean volume (Bld) [Entitic vol] 10.0 fL 6.2-12.0 [facility] Determination of erythrocyte mean corpuscular volume (MCV)Ordered By: Dr. Waite on 01-05-2022 MCV (RBC) [Entitic vol] 86.9 fL 80-94 [facility] Hematocrit Auto (Bld) [Volum e fraction]Ordered By: Dr. Waite on 01-05-2022 Hematocrit (Bld) [Volume fraction] 35.2 % 40-54 [facility] Laboratory - Chemistry and C hemistry - challengeOrdered By: Dr. Waite on 01-05-2022 ALP [Catalytic activity/Vol] 126 U/L 45-117 [facility] ALT [Catalytic activity/Vol] 20 U/L 16-61 [facility] CO2 [Moles/Vol] 31.0 mmol/L 21.0-32.0 [facility] Globulin (S) [Mass/Vol] 4.4 g/dL 2.2-4.2 [facility] Urea nitrogen/Creatinine [Mass ratio] 51.7 mg/mg 10-20 [facility] Laboratory - Hematology and Cell countsOrdered By: Dr. Waite on 01-05-2022 Erythrocyte distribution width (RBC) [Entitic vol] 44.0 fL 35.1-43.9 [facility] Erythrocyte distribution width (RBC) [Ratio] 13.8 % 11.6-14.6 [facility] Immature granulocytes/100 WBC (Bld) 0.200 % 0.0-0.9 [facility] Comment on above: IG% - Immature Granu locytes (promyelocytes, myelocytes and metamyelocytes) > 1% indicates that a LEFT SHIFT is Present. MCH (RBC) [Entitic mass] 28.6 pg 27.0-32.0 [facility] Nucleated RBC/100 WBC (Bld) [Ratio] 0 % 0-5 [facility] MCHC Auto (RBC) [Mass/Vol]Or dered By: Dr. Waite on 01-05-2022 MCHC (RBC) [Mass/Vol] 33.0 g/dL 32-36 [facility] No Panel InformationOrdered By: Dr. Waite on 01-05-2022 Estimated GFR (MDRD) Amer 480 mL/min >60 [facility] Comment on above: GFR Calc Estimated GFR (MDRD) Non-Af Amer 397 mL/min >60 [facility] Comment on above: Non- GFR Calc 28.6 pg 27.0-32.0 [facility] 13.8 % 11.6-14.6 [facility] 44.0 fl 35.1-43.9 [facility] 0.200 % 0.0-0.9 [facility] 0 % 0-5 [facility] 397 mL/min >60 [facility] 480 mL/min >60 [facility] 51.7 RATIO 10-20 [facility] 4.4 g/dL 2.2-4.2 [facility] 126 U/L 45-117 [facility] 20 U/L 16-61 [facility] 31.0 mmol/L 21.0-32.0 [facility] Platelets bldOrdered By: Dr. Waite on 01-05-2022 Platelets (Bld) [#/Vol] 165 10*3/uL 150-450 [facility] Serum or plasma albumin jacinta urement (mass/volume)Ordered By: Dr. Waite on 01-05-2022 Albumin [Mass/Vol] 3.1 g/dL 3.2-5.0 [facility] Serum or plasma albumin/glob ulin mass ratioOrdered By: Dr. Waite on 01-05-2022 Albumin/Globulin [Mass ratio] 0.7 {ratio} 0.9-2.4 [facility] Serum or plasma calcium jacinta urement (mass/volume)Ordered By: Dr. Waite on 01-05-2022 Calcium [Mass/Vol] 8.6 mg/dL 8.5-10.1 [facility] Serum or plasma creatinine m easurement (mass/volume)Ordered By: Dr. Waite on 01-05-2022 Creatinine [Mass/Vol] 0.27 mg/dL 0.70-1.30 [facility] Comment on above: The validity of the calculated GFR & GFRAA in patients over 70 years has not been determined. Clinical correlation is essential. Serum or plasma urea nitroge n measurement (mass/volume)Ordered By: Dr. Waite on 01-05-2022 Urea nitrogen [Mass/Vol] 14 mg/dL 7-18 [facility] Thin prep Papanicolaou smear with manual screeningOrdered By: Dr. Waite on 01-05-2022 Thin prep Papanicolaou smear with manual screening 13 U/L 15-37 [facility] Thin prep Papanicolaou smear with manual screening 6 5-15 [facility] Absolute lymphocyte countOrd ered By: Dr. Waite on 12-08-2021 Lymphocytes Auto (Unsp spec) [#/Vol] 2.18 10*3/uL 0.83-4.51 [facility] Basophil percentageOrdered B y: Dr. Waite on 12-08-2021 Basophil percentage 88 mg/dL 74-106 [facility] Basophil percentage 143 mmol/L 136-145 [facility] Basophil percentage 4.2 mmol/L 3.5-5.1 [facility] Basophil percentage 105 mmol/L 98-107 [facility] Basophils (Bld) [#/Vol] 6.4 10*3/uL 4.4-11.0 [facility] Basophils (Bld) [#/Vol] 3.1 10*3/uL 2.0-7.7 [facility] Basophils/100 WBC (Bld) 0.3 % 0-1 [facility] Basophils/100 WBC (Bld) 48.5 % 47-70 [facility] Basophils/100 WBC (Bld) 8.9 % 0-5 [facility] Chloride [Moles/Vol] 105 mmol/L 98-107 [facility] Eosinophils/100 WBC (Bld) 8.9 % 0-5 [facility] Glucose [Mass/Vol] 88 mg/dL 74-106 [facility] Neutrophils (Bld) [#/Vol] 3.1 10*3/uL 2.0-7.7 [facility] Neutrophils/100 WBC (Bld) 48.5 % 47-70 [facility] Potassium [Moles/Vol] 4.2 mmol/L 3.5-5.1 [facility] Sodium [Moles/Vol] 143 mmol/L 136-145 [facility] WBC (Bld) [#/Vol] 6.4 10*3/uL 4.4-11.0 [facility] Blood erythrocytes count (nu mber/volume)Ordered By: Dr. Waite on 12-08-2021 RBC (Bld) [#/Vol] 3.54 10*6/uL 4.6-6.2 [facility] Blood hemoglobin measurement (mass/volume)Ordered By: Dr. Waite on 12-08-2021 Hemoglobin (Bld) [Mass/Vol] 10.0 g/dL 13.0-16.5 [facility] Blood lymphocytes/100 leukoc ytesOrdered By: Dr. Waite on 12-08-2021 Lymphocytes/100 WBC (Bld) 33.9 % 19-41 [facility] Blood monocytes/100 leukocyt esOrdered By: Dr. Waite on 12-08-2021 Monocytes/100 WBC (Bld) 7.9 % 0-10 [facility] Blood platelet mean volumeOr dered By: Dr. Waite on 12-08-2021 Platelet mean volume (Bld) [Entitic vol] 9.9 fL 6.2-12.0 [facility] Determination of erythrocyte mean corpuscular volume (MCV)Ordered By: Dr. Waite on 12-08-2021 MCV (RBC) [Entitic vol] 89.5 fL 80-94 [facility] Hematocrit Auto (Bld) [Volum e fraction]Ordered By: Dr. Waite on 12-08-2021 Hematocrit (Bld) [Volume fraction] 31.7 % 40-54 [facility] Laboratory - Chemistry and C hemistry - challengeOrdered By: Dr. Waite on 12-08-2021 CO2 [Moles/Vol] 29.0 mmol/L 21.0-32.0 [facility] Urea nitrogen/Creatinine [Mass ratio] 48.8 mg/mg 10-20 [facility] Laboratory - Hematology and Cell countsOrdered By: Dr. Waite on 12-08-2021 Erythrocyte distribution width (RBC) [Entitic vol] 44.7 fL 35.1-43.9 [facility] Erythrocyte distribution width (RBC) [Ratio] 13.6 % 11.6-14.6 [facility] Immature granulocytes/100 WBC (Bld) 0.500 % 0.0-0.9 [facility] Comment on above: IG% - Immature Granu locytes (promyelocytes, myelocytes and metamyelocytes) > 1% indicates that a LEFT SHIFT is Present. MCH (RBC) [Entitic mass] 28.2 pg 27.0-32.0 [facility] Nucleated RBC/100 WBC (Bld) [Ratio] 0 % 0-5 [facility] MCHC Auto (RBC) [Mass/Vol]Or dered By: Dr. Waite on 12-08-2021 MCHC (RBC) [Mass/Vol] 31.5 g/dL 32-36 [facility] No Panel InformationOrdered By: Dr. Waite on 12-08-2021 Estimated GFR (MDRD) Amer 450 mL/min >60 [facility] Comment on above: GFR Calc Estimated GFR (MDRD) Non-Af Amer 372 mL/min >60 [facility] Comment on above: Non- GFR Calc 28.2 pg 27.0-32.0 [facility] 13.6 % 11.6-14.6 [facility] 44.7 fl 35.1-43.9 [facility] 0.500 % 0.0-0.9 [facility] 0 % 0-5 [facility] 372 mL/min >60 [facility] 450 mL/min >60 [facility] 48.8 RATIO 10-20 [facility] 29.0 mmol/L 21.0-32.0 [facility] Platelets bldOrdered By: Dr. Waite on 12-08-2021 Platelets (Bld) [#/Vol] 239 10*3/uL 150-450 [facility] Serum or plasma calcium jacinta urement (mass/volume)Ordered By: Dr. Waite on 12-08-2021 Calcium [Mass/Vol] 8.1 mg/dL 8.5-10.1 [facility] Serum or plasma creatinine m easurement (mass/volume)Ordered By: Dr. Waite on 12-08-2021 Creatinine [Mass/Vol] 0.29 mg/dL 0.70-1.30 [facility] Comment on above: The validity of the calculated GFR & GFRAA in patients over 70 years has not been determined. Clinical correlation is essential. Serum or plasma urea nitroge n measurement (mass/volume)Ordered By: Dr. Waite on 12-08-2021 Urea nitrogen [Mass/Vol] 14 mg/dL 7-18 [facility] Thin prep Papanicolaou smear with manual screeningOrdered By: Dr. Waite on 12-08-2021 Thin prep Papanicolaou smear with manual screening 9 5-15 [facility] Absolute lymphocyte countOrd ered By: Dr. Dillard on 12-05-2021 Lymphocytes Auto (Unsp spec) [#/Vol] 1.83 10*3/uL 0.83-4.51 [facility] Basophil percentageOrdered B y: Dr. Dillard on 12-05-2021 Basophil percentage 105 mg/dL 74-106 [facility] Basophil percentage 7.8 g/dL 6.4-8.2 [facility] Basophil percentage 0.20 mg/dL 0.20-1.00 [facility] Basophil percentage 140 mmol/L 136-145 [facility] Basophil percentage 3.8 mmol/L 3.5-5.1 [facility] Basophil percentage 107 mmol/L 98-107 [facility] Basophils (Bld) [#/Vol] 7.0 10*3/uL 4.4-11.0 [facility] Basophils (Bld) [#/Vol] 3.8 10*3/uL 2.0-7.7 [facility] Basophils/100 WBC (Bld) 0.3 % 0-1 [facility] Basophils/100 WBC (Bld) 54.8 % 47-70 [facility] Basophils/100 WBC (Bld) 9.3 % 0-5 [facility] Bilirubin [Mass/Vol] 0.20 mg/dL 0.20-1.00 [facility] Comment on above: For patients on eltr ombopag therapy, use of Dimension Horner TBIL is not recommended. Chloride [Moles/Vol] 107 mmol/L 98-107 [facility] Eosinophils/100 WBC (Bld) 9.3 % 0-5 [facility] Glucose [Mass/Vol] 105 mg/dL 74-106 [facility] Comment on above: Fasting Glucose resu lt from 100 to 125 mg/dL suggests IMPAIRED HOMEOSTASIS per A.D.A. criteria. Neutrophils (Bld) [#/Vol] 3.8 10*3/uL 2.0-7.7 [facility] Neutrophils/100 WBC (Bld) 54.8 % 47-70 [facility] Potassium [Moles/Vol] 3.8 mmol/L 3.5-5.1 [facility] Protein [Mass/Vol] 7.8 g/dL 6.4-8.2 [facility] Sodium [Moles/Vol] 140 mmol/L 136-145 [facility] WBC (Bld) [#/Vol] 7.0 10*3/uL 4.4-11.0 [facility] Blood erythrocytes count (nu mber/volume)Ordered By: Dr. Dillard on 12-05-2021 RBC (Bld) [#/Vol] 3.84 10*6/uL 4.6-6.2 [facility] Blood hemoglobin measurement (mass/volume)Ordered By: Dr. Dillard on 12-05-2021 Hemoglobin (Bld) [Mass/Vol] 10.7 g/dL 13.0-16.5 [facility] Blood lymphocytes/100 leukoc ytesOrdered By: Dr. Dillard on 12-05-2021 Lymphocytes/100 WBC (Bld) 26.3 % 19-41 [facility] Blood monocytes/100 leukocyt esOrdered By: Dr. Dillard on 12-05-2021 Monocytes/100 WBC (Bld) 8.9 % 0-10 [facility] Blood platelet mean volumeOr dered By: Dr. Dillard on 12-05-2021 Platelet mean volume (Bld) [Entitic vol] 10.0 fL 6.2-12.0 [facility] Determination of erythrocyte mean corpuscular volume (MCV)Ordered By: Dr. Dillard on 12-05-2021 MCV (RBC) [Entitic vol] 89.6 fL 80-94 [facility] Hematocrit Auto (Bld) [Volum e fraction]Ordered By: Dr. Dillard on 12-05-2021 Hematocrit (Bld) [Volume fraction] 34.4 % 40-54 [facility] Laboratory - Chemistry and C hemistry - challengeOrdered By: Dr. Dillard on 12-05-2021 ALP [Catalytic activity/Vol] 134 U/L 45-117 [facility] ALT [Catalytic activity/Vol] 24 U/L 16-61 [facility] CO2 [Moles/Vol] 27.0 mmol/L 21.0-32.0 [facility] Globulin (S) [Mass/Vol] 5.0 g/dL 2.2-4.2 [facility] Urea nitrogen/Creatinine [Mass ratio] 47.1 mg/mg 10-20 [facility] Laboratory - Hematology and Cell countsOrdered By: Dr. Dillard on 12-05-2021 Erythrocyte distribution width (RBC) [Entitic vol] 45.1 fL 35.1-43.9 [facility] Erythrocyte distribution width (RBC) [Ratio] 13.8 % 11.6-14.6 [facility] Immature granulocytes/100 WBC (Bld) 0.400 % 0.0-0.9 [facility] Comment on above: IG% - Immature Granu locytes (promyelocytes, myelocytes and metamyelocytes) > 1% indicates that a LEFT SHIFT is Present. MCH (RBC) [Entitic mass] 27.9 pg 27.0-32.0 [facility] Nucleated RBC/100 WBC (Bld) [Ratio] 0 % 0-5 [facility] MCHC Auto (RBC) [Mass/Vol]Or dered By: Dr. Dillard on 12-05-2021 MCHC (RBC) [Mass/Vol] 31.1 g/dL 32-36 [facility] Comment on above: Delta: 32.8 on 12/04 No Panel InformationOrdered By: Dr. Dillard on 12-05-2021 Estimated Creatinine Clearance Calc 269.76 ml/min [facility] Estimated GFR (MDRD) Amer 516 mL/min >60 [facility] Comment on above: GFR Calc Estimated GFR (MDRD) Non-Af Amer 426 mL/min >60 [facility] Comment on above: Non- GFR Calc 27.9 pg 27.0-32.0 [facility] 13.8 % 11.6-14.6 [facility] 45.1 fl 35.1-43.9 [facility] 0.400 % 0.0-0.9 [facility] 0 % 0-5 [facility] 426 mL/min >60 [facility] 516 mL/min >60 [facility] 269.76 ml/min [facility] 47.1 RATIO 10-20 [facility] 5.0 g/dL 2.2-4.2 [facility] 134 U/L 45-117 [facility] 24 U/L 16-61 [facility] 27.0 mmol/L 21.0-32.0 [facility] Platelets bldOrdered By: Dr. Dillard on 12-05-2021 Platelets (Bld) [#/Vol] 181 10*3/uL 150-450 [facility] Serum or plasma albumin jacinta urement (mass/volume)Ordered By: Dr. Dillard on 12-05-2021 Albumin [Mass/Vol] 2.8 g/dL 3.2-5.0 [facility] Serum or plasma albumin/glob ulin mass ratioOrdered By: Dr. Dillard on 12-05-2021 Albumin/Globulin [Mass ratio] 0.6 {ratio} 0.9-2.4 [facility] Serum or plasma calcium jacinta urement (mass/volume)Ordered By: Dr. Dillard on 12-05-2021 Calcium [Mass/Vol] 8.7 mg/dL 8.5-10.1 [facility] Serum or plasma creatinine m easurement (mass/volume)Ordered By: Dr. Dillard on 12-05-2021 Creatinine [Mass/Vol] 0.26 mg/dL 0.70-1.30 [facility] Comment on above: The validity of the calculated GFR & GFRAA in patients over 70 years has not been determined. Clinical correlation is essential. Serum or plasma urea nitroge n measurement (mass/volume)Ordered By: Dr. Dillard on 12-05-2021 Urea nitrogen [Mass/Vol] 12 mg/dL 7-18 [facility] Thin prep Papanicolaou smear with manual screeningOrdered By: Dr. Dillard on 12-05-2021 Thin prep Papanicolaou smear with manual screening 13 U/L 15-37 [facility] Thin prep Papanicolaou smear with manual screening 6 5-15 [facility] Bacteria identified Respirat ory culture Nom (Unsp spec)Ordered By: Dominic Méndez on 12-02-2021 Respiratory Culture Pseudomonas aeroginosa [facility] Microbial respiratory culture [facility] Laboratory - Chemistry and C hemistry - challengeOrdered By: Dr. Dillard on 12-02-2021 Magnesium [Mass/Vol] 2.2 mg/dL 1.6-2.6 [facility] No Panel InformationOrdered By: Dr. Dillard on 12-02-2021 2.2 mg/dL 1.6-2.6 [facility] Assessment of wrist artery p atency prior to arterial punctureOrdered By: Dr. Dillard on 12-01-2021 Arterial patency Wrist artery --pre arterial puncture Negative [facility] Base excessOrdered By: Dr. Roxi britton on 12-01-2021 Base excess Calc (BldV) [Moles/Vol] -3 mmol/L -2-2 [facility] Basophil percentageOrdered B y: Dr. Dillard on 12-01-2021 Basophil percentage 1.2 mmol/L 0.4-2.0 [facility] Lactate [Moles/Vol] 1.2 mmol/L 0.4-2.0 [facility] Basophil percentage 21.5 mmol/L 22-26 [facility] Basophils/100 WBC (Bld) 94 % 95-99 [facility] CO2 (BldA) [Partial pressure ]Ordered By: Dr. Dillard on 12-01-2021 CO2 (Bld) [Partial pressure] 31.2 mm[Hg] 35-45 [facility] Gram stain for investigation of transfusion reactionOrdered By: Dominic Méndez on 12-01-2021 Microscopic observation Gram stain Nom (Unsp spec) [facility] Laboratory - Microbiology an d Antimicrobial susceptibilityOrdered By: Dr. Moreira on 12-01-2021 Respiratory pathogens DNA and RNA 12b panel YAYO+probe (Unsp spec) [facility] No Panel InformationOrdered By: Dr. Dillard on 12-01-2021 Blood Gas Liter Flow 3.0 /min [facility] Blood Gas Sample Site R [facility] Blood Gas Specimen Type ART [facility] Blood Gas Total CO2 22 mmol/L [facility] Blood Gas Vent Mode home vent [facility] Oxygen Delivery Device Adult Vent [facility] R [facility] home vent [facility] Adult Vent [facility] 3.0 /min [facility] 22 mmol/L [facility] Oxygen (BldA) [Partial press ure]Ordered By: Dr. Dillard on 12-01-2021 Oxygen (Bld) [Partial pressure] 65 mmHG 75-100 [facility] pH measurementOrdered By: Dr Roxanne Dillard on 12-01-2021 pH (Unsp spec) 7.45 [pH] 7.35-7.45 [facility] Absolute lymphocyte counton 11-30-2021 Lymphocytes Auto (Unsp spec) [#/Vol] 1.55 10*3/uL 0.83-4.51 [facility] Work Phone: Basophil percentageon 2021 Basophils/100 WBC (Bld) 0.3 % 0-1 [facility] Work Phone: [phone] Chloride [Moles/Vol] 104 mmol/L 98-107 [facility] Work Phone: [phone] Eosinophils/100 WBC (Bld) 5.1 % 0-5 [facility] Work Phone: [phone] Glucose [Mass/Vol] 84 mg/dL 74-106 [facility] Work Phone: [phone] Neutrophils (Bld) [#/Vol] 3.6 10*3/uL 2.0-7.7 [facility] Work Phone: [phone] Neutrophils/100 WBC (Bld) 58.6 % 47-70 [facility] Work Phone: [phone] Potassium [Moles/Vol] 3.7 mmol/L 3.5-5.1 [facility] Work Phone: [phone] Sodium [Moles/Vol] 140 mmol/L 136-145 [facility] Work [facility]: [phone] WBC (Bld) [#/Vol] 6.1 10*3/uL 4.4-11.0 [facility] Work Phone: Blood erythrocytes count (nu mber/volume)on 11-30-2021 RBC (Bld) [#/Vol] 4.31 10*6/uL 4.6-6.2 [facility] Work Phone: Blood hemoglobin measurement (mass/volume)on 11-30-2021 Hemoglobin (Bld) [Mass/Vol] 12.0 g/dL 13.0-16.5 [facility] Work Phone: [phone] Blood lymphocytes/100 leukoc yteson 11-30-2021 Lymphocytes/100 WBC (Bld) 25.6 % 19-41 [facility] Work Phone: [phone] Blood monocytes/100 leukocyt eson 11-30-2021 Monocytes/100 WBC (Bld) 10.2 % 0-10 [facility] Work Phone: Blood platelet mean volumeon 11-30-2021 Platelet mean volume (Bld) [Entitic vol] 9.8 fL 6.2-12.0 [facility] Work Phone: Determination of erythrocyte mean corpuscular volume (MCV)on 11-30-2021 MCV (RBC) [Entitic vol] 86.8 fL 80-94 [facility] Work Phone: Hematocrit Auto (Bld) [Volum e fraction]on 11-30-2021 Hematocrit (Bld) [Volume fraction] 37.4 % 40-54 [facility] Work Phone: Laboratory - Chemistry and C hemistry - challengeon 11-30-2021 CO2 [Moles/Vol] 28.0 mmol/L 21.0-32.0 [facility] Work Phone: Urea nitrogen/Creatinine [Mass ratio] 35.0 mg/mg 10-20 [facility] Work Phone: Laboratory - Hematology and Cell countson 11-30-2021 Erythrocyte distribution width (RBC) [Entitic vol] 41.7 fL 35.1-43.9 [facility] Work Phone: Erythrocyte distribution width (RBC) [Ratio] 13.2 % 11.6-14.6 [facility] Work Phone: Immature granulocytes/100 WBC (Bld) 0.200 % 0.0-0.9 [facility] Work Phone: Comment on above: IG% - Immature Granu locytes (promyelocytes, myelocytes and metamyelocytes) > 1% indicates that a LEFT SHIFT is Present. MCH (RBC) [Entitic mass] 27.8 pg 27.0-32.0 [facility] Work Phone: Nucleated RBC/100 WBC (Bld) [Ratio] 0 % 0-5 [facility] Work Phone: MCHC Auto (RBC) [Mass/Vol]on 11-30-2021 MCHC (RBC) [Mass/Vol] 32.1 g/dL 32-36 [facility] Work Phone: No Panel Informationon 11-30 Estimated Creatinine Clearance Calc 357.48 ml/min [facility] Work Phone: Estimated GFR (MDRD) Amer 406 mL/min >60 [facility] Work Phone: Comment on above: GFR Calc Estimated GFR (MDRD) Non-Af Amer 335 mL/min >60 [facility] Work Phone: Comment on above: Non- GFR Calc Platelets bldon 11-30-2021 Platelets (Bld) [#/Vol] 166 10*3/uL 150-450 [facility] Work Phone: Serum or plasma calcium jacinta urement (mass/volume)on 11-30-2021 Calcium [Mass/Vol] 8.7 mg/dL 8.5-10.1 [facility] Work Phone: Serum or plasma creatinine m easurement (mass/volume)on 11-30-2021 Creatinine [Mass/Vol] 0.31 mg/dL 0.70-1.30 [facility] Work Phone: Comment on above: The validity of the calculated GFR & GFRAA in patients over 70 years has not been determined. Clinical correlation is essential. Serum or plasma urea nitroge n measurement (mass/volume)on 11-30-2021 Urea nitrogen [Mass/Vol] 11 mg/dL 7-18 [facility] Work Phone: Thin prep Papanicolaou smear with manual screeningon 11-30-2021 Thin prep Papanicolaou smear with manual screening 8 5-15 [facility] Work Phone: Absolute lymphocyte counton 11-03-2021 Lymphocytes Auto (Unsp spec) [#/Vol] 2.54 10*3/uL 0.83-4.51 [facility] Work Phone: Basophil percentageon 2021 Basophils/100 WBC (Bld) 0.5 % 0-1 [facility] Work Phone: Chloride [Moles/Vol] 102 mmol/L 98-107 [facility] Work Phone: [phone] Eosinophils/100 WBC (Bld) 4.1 % 0-5 [facility] Work Phone: [phone] Glucose [Mass/Vol] 98 mg/dL 74-106 [facility] Work Phone: Neutrophils (Bld) [#/Vol] 3.2 10*3/uL 2.0-7.7 [facility] Work Phone: [phone] Neutrophils/100 WBC (Bld) 47.6 % 47-70 [facility] Work Phone: [phone] Potassium [Moles/Vol] 3.6 mmol/L 3.5-5.1 [facility] Work Phone: [phone] Sodium [Moles/Vol] 138 mmol/L 136-145 [facility] Work Phone: WBC (Bld) [#/Vol] 6.6 10*3/uL 4.4-11.0 [facility] Work Phone: Blood erythrocytes count (nu mber/volume)on 11-03-2021 RBC (Bld) [#/Vol] 4.09 10*6/uL 4.6-6.2 [facility] Work Phone: Blood hemoglobin measurement (mass/volume)on 11-03-2021 Hemoglobin (Bld) [Mass/Vol] 11.9 g/dL 13.0-16.5 [facility] Work Phone: [phone] Blood lymphocytes/100 leukoc yteson 11-03-2021 Lymphocytes/100 WBC (Bld) 38.4 % 19-41 [facility] Work Phone: [phone] Blood monocytes/100 leukocyt eson 11-03-2021 Monocytes/100 WBC (Bld) 9.2 % 0-10 [facility] Work Phone: Blood platelet mean volumeon 11-03-2021 Platelet mean volume (Bld) [Entitic vol] 10.1 fL 6.2-12.0 [facility] Work Phone: Determination of erythrocyte mean corpuscular volume (MCV)on 11-03-2021 MCV (RBC) [Entitic vol] 88.3 fL 80-94 [facility] Work Phone: Hematocrit Auto (Bld) [Volum e fraction]on 11-03-2021 Hematocrit (Bld) [Volume fraction] 36.1 % 40-54 [facility] Work Phone: Laboratory - Chemistry and C hemistry - challengeon 11-03-2021 CO2 [Moles/Vol] 27.0 mmol/L 21.0-32.0 [facility] Work Phone: Urea nitrogen/Creatinine [Mass ratio] 47.9 mg/mg 10-20 [facility] Work Phone: Laboratory - Hematology and Cell countson 11-03-2021 Erythrocyte distribution width (RBC) [Entitic vol] 44.0 fL 35.1-43.9 [facility] Work Phone: Erythrocyte distribution width (RBC) [Ratio] 13.5 % 11.6-14.6 [facility] Work Phone: Immature granulocytes/100 WBC (Bld) 0.200 % 0.0-0.9 [facility] Work Phone: Comment on above: IG% - Immature Granu locytes (promyelocytes, myelocytes and metamyelocytes) > 1% indicates that a LEFT SHIFT is Present. MCH (RBC) [Entitic mass] 29.1 pg 27.0-32.0 [facility] Work Phone: Nucleated RBC/100 WBC (Bld) [Ratio] 0 % 0-5 [facility] Work Phone: MCHC Auto (RBC) [Mass/Vol]on 11-03-2021 MCHC (RBC) [Mass/Vol] 33.0 g/dL 32-36 [facility] Work Phone: No Panel Informationon 11-03 Estimated GFR (MDRD) Amer 352 mL/min >60 [facility] Work Phone: Comment on above: GFR Calc Estimated GFR (MDRD) Non-Af Amer 291 mL/min >60 [facility] Work Phone: Comment on above: Non- GFR Calc Platelets bldon 11-03-2021 Platelets (Bld) [#/Vol] 215 10*3/uL 150-450 [facility] Work Phone: Serum or plasma calcium jacinta urement (mass/volume)on 11-03-2021 Calcium [Mass/Vol] 8.9 mg/dL 8.5-10.1 [facility] Work Phone: Serum or plasma creatinine m easurement (mass/volume)on 11-03-2021 Creatinine [Mass/Vol] 0.36 mg/dL 0.70-1.30 [facility] Work Phone: Comment on above: The validity of the calculated GFR & GFRAA in patients over 70 years has not been determined. Clinical correlation is essential. Serum or plasma urea nitroge n measurement (mass/volume)on 11-03-2021 Urea nitrogen [Mass/Vol] 17 mg/dL 7-18 [facility] Work Phone: Thin prep Papanicolaou smear with manual screeningon 11-03-2021 Thin prep Papanicolaou smear with manual screening 9 5-15 [facility] Work Phone: Absolute lymphocyte counton 09-10-2021 Lymphocytes Auto (Unsp spec) [#/Vol] 2.63 10*3/uL 0.83-4.51 [facility] Work Phone: Basophil percentageon 2021 Basophils/100 WBC (Bld) 0.3 % 0-1 [facility] Work Phone: Chloride [Moles/Vol] 102 mmol/L 98-107 [facility] Work Phone: Eosinophils/100 WBC (Bld) 3.9 % 0-5 [facility] Work Phone: Glucose [Mass/Vol] 80 mg/dL 74-106 [facility] Work Phone: Neutrophils (Bld) [#/Vol] 3.5 10*3/uL 2.0-7.7 [facility] Work Phone: Neutrophils/100 WBC (Bld) 48.5 % 47-70 [facility] Work Phone: Potassium [Moles/Vol] 4.1 mmol/L 3.5-5.1 [facility] Work [facility]: Sodium [Moles/Vol] 138 mmol/L 136-145 [facility] Work Phone: WBC (Bld) [#/Vol] 7.1 10*3/uL 4.4-11.0 [facility] Work Phone: Blood erythrocytes count (nu mber/volume)on 09-10-2021 RBC (Bld) [#/Vol] 4.00 10*6/uL 4.6-6.2 [facility] Work Phone: Blood hemoglobin measurement (mass/volume)on 09-10-2021 Hemoglobin (Bld) [Mass/Vol] 11.3 g/dL 13.0-16.5 [facility] Work Phone: Blood lymphocytes/100 leukoc yteson 09-10-2021 Lymphocytes/100 WBC (Bld) 36.9 % 19-41 [facility] Work Phone: Blood monocytes/100 leukocyt eson 09-10-2021 Monocytes/100 WBC (Bld) 10.3 % 0-10 [facility] Work Phone: Blood platelet mean volumeon 09-10-2021 Platelet mean volume (Bld) [Entitic vol] 10.7 fL 6.2-12.0 [facility] Work Phone: Determination of erythrocyte mean corpuscular volume (MCV)on 09-10-2021 MCV (RBC) [Entitic vol] 89.5 fL 80-94 [facility] Work Phone: Hematocrit Auto (Bld) [Volum e fraction]on 09-10-2021 Hematocrit (Bld) [Volume fraction] 35.8 % 40-54 [facility] Work Phone: Iron measurement (mass/mass) on 09-10-2021 Iron (Unsp spec) [Mass/Mass] 59 ug/dL 65-175 [facility] Work Phone: Laboratory - Chemistry and C hemistry - challengeon 09-10-2021 CO2 [Moles/Vol] 30.0 mmol/L 21.0-32.0 [facility] Work Phone: Urea nitrogen/Creatinine [Mass ratio] 71.9 mg/mg 10-20 [facility] Work Phone: Laboratory - Hematology and Cell countson 09-10-2021 Erythrocyte distribution width (RBC) [Entitic vol] 47.7 fL 35.1-43.9 [facility] Work Phone: Erythrocyte distribution width (RBC) [Ratio] 14.6 % 11.6-14.6 [facility] Work Phone: Immature granulocytes/100 WBC (Bld) 0.100 % 0.0-0.9 [facility] Work Phone: Comment on above: IG% - Immature Granu locytes (promyelocytes, myelocytes and metamyelocytes) > 1% indicates that a LEFT SHIFT is Present. MCH (RBC) [Entitic mass] 28.3 pg 27.0-32.0 [facility] Work Phone: Nucleated RBC/100 WBC (Bld) [Ratio] 0 % 0-5 [facility] Work Phone: MCHC Auto (RBC) [Mass/Vol]on 09-10-2021 MCHC (RBC) [Mass/Vol] 31.6 g/dL 32-36 [facility] Work Phone: No Panel Informationon 09-10 Estimated GFR (MDRD) Amer 467 mL/min >60 [facility] Work Phone: Comment on above: GFR Calc Estimated GFR (MDRD) Non-Af Amer 386 mL/min >60 [facility] Work Phone: Comment on above: Non- GFR Calc Platelets bldon 09-10-2021 Platelets (Bld) [#/Vol] 177 10*3/uL 150-450 [facility] Work Phone: Serum or plasma calcium jacinta urement (mass/volume)on 09-10-2021 Calcium [Mass/Vol] 9.0 mg/dL 8.5-10.1 [facility] Work Phone: Serum or plasma creatinine m easurement (mass/volume)on 09-10-2021 Creatinine [Mass/Vol] 0.28 mg/dL 0.70-1.30 [facility] Work Phone: Comment on above: The validity of the calculated GFR & GFRAA in patients over 70 years has not been determined. Clinical correlation is essential. Serum or plasma urea nitroge n measurement (mass/volume)on 09-10-2021 Urea nitrogen [Mass/Vol] 20 mg/dL 7-18 [facility] Work Phone: Thin prep Papanicolaou smear with manual screeningon 09-10-2021 Thin prep Papanicolaou smear with manual screening 6 5-15 [facility] Work Phone: Absolute lymphocyte counton 08-12-2021 Lymphocytes Auto (Unsp spec) [#/Vol] 1.84 10*3/uL 0.83-4.51 [facility] Work Phone: Basophil percentageon 2021 Basophils/100 WBC (Bld) 0.2 % 0-1 [facility] Work Phone: Chloride [Moles/Vol] 103 mmol/L 98-107 [facility] Work Phone: Eosinophils/100 WBC (Bld) 4.6 % 0-5 [facility] Work Phone: Glucose [Mass/Vol] 90 mg/dL 74-106 [facility] Work Phone: Neutrophils (Bld) [#/Vol] 2.4 10*3/uL 2.0-7.7 [facility] Work Phone: Neutrophils/100 WBC (Bld) 48.8 % 47-70 [facility] Work Phone: Potassium [Moles/Vol] 3.8 mmol/L 3.5-5.1 [facility] Work Phone: Sodium [Moles/Vol] 139 mmol/L 136-145 [facility] Work [facility]: WBC (Bld) [#/Vol] 5.0 10*3/uL 4.4-11.0 [facility] Work Phone: Blood erythrocytes count (nu mber/volume)on 08-12-2021 RBC (Bld) [#/Vol] 4.09 10*6/uL 4.6-6.2 [facility] Work Phone: Blood hemoglobin measurement (mass/volume)on 08-12-2021 Hemoglobin (Bld) [Mass/Vol] 11.5 g/dL 13.0-16.5 [facility] Work Phone: Blood lymphocytes/100 leukoc yteson 08-12-2021 Lymphocytes/100 WBC (Bld) 36.8 % 19-41 [facility] Work Phone: Blood monocytes/100 leukocyt eson 08-12-2021 Monocytes/100 WBC (Bld) 9.4 % 0-10 [facility] Work Phone: Blood platelet mean volumeon 08-12-2021 Platelet mean volume (Bld) [Entitic vol] 11.0 fL 6.2-12.0 [facility] Work Phone: Determination of erythrocyte mean corpuscular volume (MCV)on 08-12-2021 MCV (RBC) [Entitic vol] 87.0 fL 80-94 [facility] Work Phone: Hematocrit Auto (Bld) [Volum e fraction]on 08-12-2021 Hematocrit (Bld) [Volume fraction] 35.6 % 40-54 [facility] Work Phone: Laboratory - Chemistry and C hemistry - challengeon 08-12-2021 CO2 [Moles/Vol] 29.0 mmol/L 21.0-32.0 [facility] Work Phone: Urea nitrogen/Creatinine [Mass ratio] 50.8 mg/mg 10-20 [facility] Work Phone: Laboratory - Hematology and Cell countson 08-12-2021 Erythrocyte distribution width (RBC) [Entitic vol] 44.2 fL 35.1-43.9 [facility] Work Phone: Erythrocyte distribution width (RBC) [Ratio] 14.1 % 11.6-14.6 [facility] Work Phone: Immature granulocytes/100 WBC (Bld) 0.200 % 0.0-0.9 [facility] Work Phone: Comment on above: IG% - Immature Granu locytes (promyelocytes, myelocytes and metamyelocytes) > 1% indicates that a LEFT SHIFT is Present. MCH (RBC) [Entitic mass] 28.1 pg 27.0-32.0 [facility] Work Phone: Nucleated RBC/100 WBC (Bld) [Ratio] 0 % 0-5 [facility] Work Phone: MCHC Auto (RBC) [Mass/Vol]on 08-12-2021 MCHC (RBC) [Mass/Vol] 32.3 g/dL 32-36 [facility] Work Phone: No Panel Informationon 08-12 Estimated GFR (MDRD) Amer 405 mL/min >60 [facility] Work Phone: Comment on above: GFR Calc Estimated GFR (MDRD) Non-Af Amer 334 mL/min >60 [facility] Work Phone: Comment on above: Non- GFR Calc Platelets bldon 08-12-2021 Platelets (Bld) [#/Vol] 151 10*3/uL 150-450 [facility] Work Phone: Serum or plasma calcium jacinta urement (mass/volume)on 08-12-2021 Calcium [Mass/Vol] 9.0 mg/dL 8.5-10.1 [facility] Work Phone: Serum or plasma creatinine m easurement (mass/volume)on 08-12-2021 Creatinine [Mass/Vol] 0.32 mg/dL 0.70-1.30 [facility] Work Phone: Comment on above: The validity of the calculated GFR & GFRAA in patients over 70 years has not been determined. Clinical correlation is essential. Serum or plasma urea nitroge n measurement (mass/volume)on 08-12-2021 Urea nitrogen [Mass/Vol] 16 mg/dL 7-18 [facility] Work Phone: Thin prep Papanicolaou smear with manual screeningon 08-12-2021 Thin prep Papanicolaou smear with manual screening 7 5-15 [facility] Work Phone: Absolute lymphocyte counton 07-11-2021 Lymphocytes Auto (Unsp spec) [#/Vol] 2.56 10*3/uL 0.83-4.51 [facility] Work Phone: Basophil percentageon 2021 Basophils/100 WBC (Bld) 0.4 % 0-1 [facility] Work Phone: Chloride [Moles/Vol] 105 mmol/L 98-107 [facility] Work Phone: Eosinophils/100 WBC (Bld) 5.9 % 0-5 [facility] Work Phone: Glucose [Mass/Vol] 85 mg/dL 74-106 [facility] Work Phone: Neutrophils (Bld) [#/Vol] 2.1 10*3/uL 2.0-7.7 [facility] Work Phone: Neutrophils/100 WBC (Bld) 38.0 % 47-70 [facility] Work Phone: Potassium [Moles/Vol] 3.7 mmol/L 3.5-5.1 [facility] Work Phone: Sodium [Moles/Vol] 139 mmol/L 136-145 [facility] Work Phone: WBC (Bld) [#/Vol] 5.6 10*3/uL 4.4-11.0 [facility] Work Phone: Blood erythrocytes count (nu mber/volume)on 07-11-2021 RBC (Bld) [#/Vol] 3.83 10*6/uL 4.6-6.2 [facility] Work Phone: Blood hemoglobin measurement (mass/volume)on 07-11-2021 Hemoglobin (Bld) [Mass/Vol] 10.8 g/dL 13.0-16.5 [facility] Work Phone: Blood lymphocytes/100 leukoc yteson 07-11-2021 Lymphocytes/100 WBC (Bld) 46.0 % 19-41 [facility] Work Phone: Blood monocytes/100 leukocyt eson 07-11-2021 Monocytes/100 WBC (Bld) 9.7 % 0-10 [facility] Work Phone: Blood platelet mean volumeon 07-11-2021 Platelet mean volume (Bld) [Entitic vol] 10.9 fL 6.2-12.0 [facility] Work Phone: Determination of erythrocyte mean corpuscular volume (MCV)on 07-11-2021 MCV (RBC) [Entitic vol] 88.5 fL 80-94 [facility] Work Phone: Hematocrit Auto (Bld) [Volum e fraction]on 07-11-2021 Hematocrit (Bld) [Volume fraction] 33.9 % 40-54 [facility] Work Phone: Laboratory - Chemistry and C hemistry - challengeon 07-11-2021 CO2 [Moles/Vol] 28.0 mmol/L 21.0-32.0 [facility] Work Phone: Urea nitrogen/Creatinine [Mass ratio] 79.4 mg/mg 10-20 [facility] Work Phone: Laboratory - Hematology and Cell countson 07-11-2021 Erythrocyte distribution width (RBC) [Entitic vol] 44.5 fL 35.1-43.9 [facility] Work Phone: Erythrocyte distribution width (RBC) [Ratio] 13.7 % 11.6-14.6 [facility] Work Phone: Immature granulocytes/100 WBC (Bld) 0.000 % 0.0-0.9 [facility] Work Phone: Comment on above: IG% - Immature Granu locytes (promyelocytes, myelocytes and metamyelocytes) > 1% indicates that a LEFT SHIFT is Present. MCH (RBC) [Entitic mass] 28.2 pg 27.0-32.0 [facility] Work Phone: Nucleated RBC/100 WBC (Bld) [Ratio] 0 % 0-5 [facility] Work Phone: MCHC Auto (RBC) [Mass/Vol]on 07-11-2021 MCHC (RBC) [Mass/Vol] 31.9 g/dL 32-36 [facility] Work Phone: No Panel Informationon 07-11 Estimated GFR (MDRD) Amer 470 mL/min >60 [facility] Work Phone: Comment on above: GFR Calc Estimated GFR (MDRD) Non-Af Amer 388 mL/min >60 [facility] Work Phone: Comment on above: Non- GFR Calc Platelets bldon 07-11-2021 Platelets (Bld) [#/Vol] 163 10*3/uL 150-450 [facility] Work Phone: Serum or plasma calcium jacinta urement (mass/volume)on 07-11-2021 Calcium [Mass/Vol] 8.3 mg/dL 8.5-10.1 [facility] Work Phone: Serum or plasma creatinine m easurement (mass/volume)on 07-11-2021 Creatinine [Mass/Vol] 0.28 mg/dL 0.70-1.30 [facility] Work Phone: Comment on above: The validity of the calculated GFR & GFRAA in patients over 70 years has not been determined. Clinical correlation is essential. Serum or plasma urea nitroge n measurement (mass/volume)on 07-11-2021 Urea nitrogen [Mass/Vol] 22 mg/dL 7-18 [facility] Work Phone: Thin prep Papanicolaou smear with manual screeningon 07-11-2021 Thin prep Papanicolaou smear with manual screening 6 5-15 [facility] Work Phone: Absolute lymphocyte counton 06-11-2021 Lymphocytes Auto (Unsp spec) [#/Vol] 2.71 10*3/uL 0.83-4.51 [facility] Work Phone: Basophil percentageon 2021 Basophils/100 WBC (Bld) 0.5 % 0-1 [facility] Work Phone: Chloride [Moles/Vol] 103 mmol/L 98-107 [facility] Work Phone: Eosinophils/100 WBC (Bld) 5.6 % 0-5 [facility] Work Phone: Glucose [Mass/Vol] 82 mg/dL 74-106 [facility] Work Phone: Neutrophils (Bld) [#/Vol] 2.6 10*3/uL 2.0-7.7 [facility] Work Phone: Neutrophils/100 WBC (Bld) 41.2 % 47-70 [facility] Work Phone: Potassium [Moles/Vol] 4.1 mmol/L 3.5-5.1 [facility] Work Phone: Sodium [Moles/Vol] 140 mmol/L 136-145 [facility] Work Phone: WBC (Bld) [#/Vol] 6.3 10*3/uL 4.4-11.0 [facility] Work Phone: Blood erythrocytes count (nu mber/volume)on 06-11-2021 RBC (Bld) [#/Vol] 4.05 10*6/uL 4.6-6.2 [facility] Work Phone: Blood hemoglobin measurement (mass/volume)on 06-11-2021 Hemoglobin (Bld) [Mass/Vol] 11.4 g/dL 13.0-16.5 [facility] Work Phone: Blood lymphocytes/100 leukoc yteson 06-11-2021 Lymphocytes/100 WBC (Bld) 43.0 % 19-41 [facility] Work Phone: Blood monocytes/100 leukocyt eson 06-11-2021 Monocytes/100 WBC (Bld) 9.5 % 0-10 [facility] Work Phone: [phone] Blood platelet mean volumeon 06-11-2021 Platelet mean volume (Bld) [Entitic vol] 10.4 fL 6.2-12.0 [facility] Work Phone: Determination of erythrocyte mean corpuscular volume (MCV)on 06-11-2021 MCV (RBC) [Entitic vol] 87.2 fL 80-94 [facility] Work Phone: Hematocrit Auto (Bld) [Volum e fraction]on 06-11-2021 Hematocrit (Bld) [Volume fraction] 35.3 % 40-54 [facility] Work Phone: Laboratory - Chemistry and C hemistry - challengeon 06-11-2021 CO2 [Moles/Vol] 32.0 mmol/L 21.0-32.0 [facility] Work Phone: Urea nitrogen/Creatinine [Mass ratio] 71.4 mg/mg 10-20 [facility] Work Phone: Laboratory - Hematology and Cell countson 06-11-2021 Erythrocyte distribution width (RBC) [Entitic vol] 44.3 fL 35.1-43.9 [facility] Work Phone: Erythrocyte distribution width (RBC) [Ratio] 14.0 % 11.6-14.6 [facility] Work Phone: Immature granulocytes/100 WBC (Bld) 0.200 % 0.0-0.9 [facility] Work Phone: Comment on above: IG% - Immature Granu locytes (promyelocytes, myelocytes and metamyelocytes) > 1% indicates that a LEFT SHIFT is Present. MCH (RBC) [Entitic mass] 28.1 pg 27.0-32.0 [facility] Work Phone: Nucleated RBC/100 WBC (Bld) [Ratio] 0 % 0-5 [facility] Work Phone: MCHC Auto (RBC) [Mass/Vol]on 06-11-2021 MCHC (RBC) [Mass/Vol] 32.3 g/dL 32-36 [facility] Work Phone: No Panel Informationon 06-11 Estimated GFR (MDRD) Amer 492 mL/min >60 [facility] Work Phone: Comment on above: GFR Calc Estimated GFR (MDRD) Non-Af Amer 407 mL/min >60 [facility] Work Phone: Comment on above: Non- GFR Calc Platelets bldon 06-11-2021 Platelets (Bld) [#/Vol] 185 10*3/uL 150-450 [facility] Work Phone: Serum or plasma calcium jacinta urement (mass/volume)on 06-11-2021 Calcium [Mass/Vol] 8.7 mg/dL 8.5-10.1 [facility] Work Phone: Serum or plasma creatinine m easurement (mass/volume)on 06-11-2021 Creatinine [Mass/Vol] 0.27 mg/dL 0.70-1.30 [facility] Work Phone: Comment on above: The validity of the calculated GFR & GFRAA in patients over 70 years has not been determined. Clinical correlation is essential. Serum or plasma urea nitroge n measurement (mass/volume)on 06-11-2021 Urea nitrogen [Mass/Vol] 19 mg/dL 7-18 [facility] Work Phone: Thin prep Papanicolaou smear with manual screeningon 06-11-2021 Thin prep Papanicolaou smear with manual screening 5 5-15 [facility] Work Phone: Absolute lymphocyte counton 05-19-2021 Lymphocytes Auto (Unsp spec) [#/Vol] 2.08 10*3/uL 0.83-4.51 [facility] Work Phone: Basophil percentageon 2021 Basophils/100 WBC (Bld) 0.5 % 0-1 [facility] Work Phone: Chloride [Moles/Vol] 104 mmol/L 98-107 [facility] Work Phone: Eosinophils/100 WBC (Bld) 9.4 % 0-5 [facility] Work Phone: Glucose [Mass/Vol] 98 mg/dL 74-106 [facility] Work Phone: Neutrophils (Bld) [#/Vol] 3.2 10*3/uL 2.0-7.7 [facility] Work Phone: Neutrophils/100 WBC (Bld) 49.4 % 47-70 [facility] Work Phone: [phone] Potassium [Moles/Vol] 4.2 mmol/L 3.5-5.1 [facility] Work Phone: [phone] Sodium [Moles/Vol] 136 mmol/L 136-145 [facility] Work Phone: [phone] WBC (Bld) [#/Vol] 6.4 10*3/uL 4.4-11.0 [facility] Work Phone: [phone] Blood erythrocytes count (nu mber/volume)on 05-19-2021 RBC (Bld) [#/Vol] 4.21 10*6/uL 4.6-6.2 [facility] Work Phone: Blood hemoglobin measurement (mass/volume)on 05-19-2021 Hemoglobin (Bld) [Mass/Vol] 11.7 g/dL 13.0-16.5 [facility] Work Phone: Blood lymphocytes/100 leukoc yteson 05-19-2021 Lymphocytes/100 WBC (Bld) 32.4 % 19-41 [facility] Work Phone: [phone] Blood monocytes/100 leukocyt eson 05-19-2021 Monocytes/100 WBC (Bld) 8.1 % 0-10 [facility] Work Phone: Blood platelet adequacy dete ction by light microscopyon 05-19-2021 Platelets LM Ql (Bld) SLT DEC ADEQ [facility] Work Phone: Blood platelet mean volumeon 05-19-2021 Platelet mean volume (Bld) [Entitic vol] 10.3 fL 6.2-12.0 [facility] Work Phone: Determination of erythrocyte mean corpuscular volume (MCV)on 05-19-2021 MCV (RBC) [Entitic vol] 86.7 fL 80-94 [facility] Work Phone: Hematocrit Auto (Bld) [Volum e fraction]on 05-19-2021 Hematocrit (Bld) [Volume fraction] 36.5 % 40-54 [facility] Work Phone: Laboratory - Chemistry and C hemistry - challengeon 05-19-2021 CO2 [Moles/Vol] 26.0 mmol/L 21.0-32.0 [facility] Work Phone: Urea nitrogen/Creatinine [Mass ratio] 32.7 mg/mg 10-20 [facility] Work Phone: Laboratory - Hematology and Cell countson 05-19-2021 Anisocytosis Ql (Bld) RARE [facility] Work Phone: Erythrocyte distribution width (RBC) [Entitic vol] 44.8 fL 35.1-43.9 [facility] Work Phone: Erythrocyte distribution width (RBC) [Ratio] 14.2 % 11.6-14.6 [facility] Work Phone: Immature granulocytes/100 WBC (Bld) 0.200 % 0.0-0.9 [facility] Work Phone: Comment on above: IG% - Immature Granu locytes (promyelocytes, myelocytes and metamyelocytes) > 1% indicates that a LEFT SHIFT is Present. MCH (RBC) [Entitic mass] 27.8 pg 27.0-32.0 [facility] Work Phone: Nucleated RBC/100 WBC (Bld) [Ratio] 0 % 0-5 [facility] Work Phone: MCHC Auto (RBC) [Mass/Vol]on 05-19-2021 MCHC (RBC) [Mass/Vol] 32.1 g/dL 32-36 [facility] Work Phone: No Panel Informationon 05-19 Estimated Creatinine Clearance Calc 189.56 ml/min [facility] Work Phone: Estimated GFR (MDRD) Amer 340 mL/min >60 [facility] Work Phone: Comment on above: GFR Calc Estimated GFR (MDRD) Non-Af Amer 281 mL/min >60 [facility] Work Phone: Comment on above: Non- GFR Calc Platelets bldon 05-19-2021 Platelets (Bld) [#/Vol] 134 10*3/uL 150-450 [facility] Work Phone: RBC morphologyon 05-19-2021 RBC morphology finding Nom (Bld) N CHROM NORMAL NORM C&C [facility] Work Phone: Serum or plasma calcium jacinta urement (mass/volume)on 05-19-2021 Calcium [Mass/Vol] 8.8 mg/dL 8.5-10.1 [facility] Work Phone: Serum or plasma creatinine m easurement (mass/volume)on 05-19-2021 Creatinine [Mass/Vol] 0.37 mg/dL 0.70-1.30 [facility] Work Phone: Comment on above: The validity of the calculated GFR & GFRAA in patients over 70 years has not been determined. Clinical correlation is essential. Serum or plasma urea nitroge n measurement (mass/volume)on 05-19-2021 Urea nitrogen [Mass/Vol] 12 mg/dL 7-18 [facility] Work Phone: Thin prep Papanicolaou smear with manual screeningon 05-19-2021 Thin prep Papanicolaou smear with manual screening 6 5-15 [facility] Work Phone: Absolute lymphocyte counton 05-13-2021 Lymphocytes Auto (Unsp spec) [#/Vol] 3.26 10*3/uL 0.83-4.51 [facility] Work Phone: Basophil percentageon 2021 Basophils/100 WBC (Bld) 0.1 % 0-1 [facility] Work Phone: Chloride [Moles/Vol] 108 mmol/L 98-107 [facility] Work Phone: Eosinophils/100 WBC (Bld) 6.0 % 0-5 [facility] Work Phone: Glucose [Mass/Vol] 107 mg/dL 74-106 [facility] Work Phone: Comment on above: Fasting Glucose resu lt from 100 to 125 mg/dL suggests IMPAIRED HOMEOSTASIS per A.D.A. criteria. Neutrophils (Bld) [#/Vol] 2.9 10*3/uL 2.0-7.7 [facility] Work Phone: Neutrophils/100 WBC (Bld) 39.4 % 47-70 [facility] Work Phone: Potassium [Moles/Vol] 3.8 mmol/L 3.5-5.1 [facility] Work Phone: [phone] Sodium [Moles/Vol] 140 mmol/L 136-145 [facility] Work Phone: WBC (Bld) [#/Vol] 7.3 10*3/uL 4.4-11.0 [facility] Work Phone: Blood erythrocytes count (nu mber/volume)on 05-13-2021 RBC (Bld) [#/Vol] 4.06 10*6/uL 4.6-6.2 [facility] Work Phone: Blood hemoglobin measurement (mass/volume)on 05-13-2021 Hemoglobin (Bld) [Mass/Vol] 11.4 g/dL 13.0-16.5 [facility] Work Phone: Blood lymphocytes/100 leukoc yteson 05-13-2021 Lymphocytes/100 WBC (Bld) 44.6 % 19-41 [facility] Work Phone: Blood monocytes/100 leukocyt eson 05-13-2021 Monocytes/100 WBC (Bld) 9.8 % 0-10 [facility] Work Phone: Blood platelet mean volumeon 05-13-2021 Platelet mean volume (Bld) [Entitic vol] 10.6 fL 6.2-12.0 [facility] Work Phone: Determination of erythrocyte mean corpuscular volume (MCV)on 05-13-2021 MCV (RBC) [Entitic vol] 87.4 fL 80-94 [facility] Work Phone: Hematocrit Auto (Bld) [Volum e fraction]on 05-13-2021 Hematocrit (Bld) [Volume fraction] 35.5 % 40-54 [facility] Work Phone: Laboratory - Chemistry and C hemistry - challengeon 05-13-2021 CO2 [Moles/Vol] 29.0 mmol/L 21.0-32.0 [facility] Work Phone: Urea nitrogen/Creatinine [Mass ratio] 46.0 mg/mg 10-20 [facility] Work Phone: Laboratory - Hematology and Cell countson 05-13-2021 Erythrocyte distribution width (RBC) [Entitic vol] 45.3 fL 35.1-43.9 [facility] Work Phone: Erythrocyte distribution width (RBC) [Ratio] 14.2 % 11.6-14.6 [facility] Work Phone: Immature granulocytes/100 WBC (Bld) 0.100 % 0.0-0.9 [facility] Work Phone: Comment on above: IG% - Immature Granu locytes (promyelocytes, myelocytes and metamyelocytes) > 1% indicates that a LEFT SHIFT is Present. MCH (RBC) [Entitic mass] 28.1 pg 27.0-32.0 [facility] Work Phone: Nucleated RBC/100 WBC (Bld) [Ratio] 0.3 % 0-5 [facility] Work Phone: MCHC Auto (RBC) [Mass/Vol]on 05-13-2021 MCHC (RBC) [Mass/Vol] 32.1 g/dL 32-36 [facility]: No Panel Informationon 05-13 Estimated GFR (MDRD) Amer 389 mL/min >60 [facility] Work Phone: Comment on above: GFR Calc Estimated GFR (MDRD) Non-Af Amer 322 mL/min >60 [facility] Work Phone: Comment on above: Non- GFR Calc Platelets bldon 05-13-2021 Platelets (Bld) [#/Vol] 170 10*3/uL 150-450 [facility] Work Phone: Serum or plasma calcium jacinta urement (mass/volume)on 05-13-2021 Calcium [Mass/Vol] 8.9 mg/dL 8.5-10.1 [facility] Work Phone: Serum or plasma creatinine m easurement (mass/volume)on 05-13-2021 Creatinine [Mass/Vol] 0.33 mg/dL 0.70-1.30 [facility] Work Phone: Comment on above: The validity of the calculated GFR & GFRAA in patients over 70 years has not been determined. Clinical correlation is essential. Serum or plasma urea nitroge n measurement (mass/volume)on 05-13-2021 Urea nitrogen [Mass/Vol] 15 mg/dL 7-18 [facility] Work Phone: Thin prep Papanicolaou smear with manual screeningon 05-13-2021 Thin prep Papanicolaou smear with manual screening 3 5-15 [facility] Work Phone: Bronchoalveolar lavage cultu re with Gram stainon 04-28-2021 Respiratory Culture Pseudomonas aeroginosa [facility] Work Phone: Respiratory Culture Streptococcus agalactiae (B) [facility] Work Phone: Respiratory Culture Positive [facility] Work Phone: Gram stain for investigation of transfusion reactionon 04-28-2021 Microscopic observation Gram stain Nom (Unsp spec) [facility] Work Phone: Basophil percentageon 2021 Chloride [Moles/Vol] 105 mmol/L 98-[address] [facility] [address] [facility] Work Phone: Glucose [Mass/Vol] 93 mg/dL 74-106 [facility] Work Phone: Potassium [Moles/Vol] 4.0 mmol/L 3.5-5.1 [address] [facility] Work Phone: Sodium [Moles/Vol] 139 mmol/L 136-145 [facility] Work Phone: WBC (Bld) [#/Vol] 6.8 10*3/uL 4.4-11.0 [facility] Work Phone: Blood erythrocytes count (nu mber/volume)on 04-21-2021 RBC (Bld) [#/Vol] 4.12 10*6/uL 4.6-6.2 [facility] Work [facility]: Blood hemoglobin measurement (mass/volume)on 04-21-2021 Hemoglobin (Bld) [Mass/Vol] 12.2 g/dL 13.0-16.5 [facility] Work Phone: Blood platelet mean volumeon 04-21-2021 Platelet mean volume (Bld) [Entitic vol] 11.3 fL 6.2-12.0 [facility] Work Phone: Determination of erythrocyte mean corpuscular volume (MCV)on 04-21-2021 MCV (RBC) [Entitic vol] 86.9 fL 80-94 [facility] Work Phone: Hematocrit Auto (Bld) [Volum e fraction]on 04-21-2021 Hematocrit (Bld) [Volume fraction] 35.8 % 40-54 [facility] Work Phone: Laboratory - Chemistry and C hemistry - challengeon 04-21-2021 CO2 [Moles/Vol] 29.0 mmol/L 21.0-32.0 [facility] Work Phone: Urea nitrogen/Creatinine [Mass ratio] 59.4 mg/mg 10-20 [facility] Work Phone: Laboratory - Hematology and Cell countson 04-21-2021 Erythrocyte distribution width (RBC) [Entitic vol] 43.7 fL 35.1-43.9 [facility] Work Phone: Erythrocyte distribution width (RBC) [Ratio] 13.9 % 11.6-14.6 [facility] Work Phone: MCH (RBC) [Entitic mass] 29.6 pg 27.0-32.0 [facility] Work Phone: MCHC Auto (RBC) [Mass/Vol]on 04-21-2021 MCHC (RBC) [Mass/Vol] 34.1 g/dL 32- [facility] Work Phone: No Panel Informationon 04-21 Estimated GFR (MDRD) Amer 424 mL/min >60 [facility] Work Phone: Comment on above: GFR Calc Estimated GFR (MDRD) Non-Af Amer 350 mL/min >60 [facility] Work Phone: Comment on above: Non- GFR Calc Platelets bldon 04-21-2021 Platelets (Bld) [#/Vol] 185 10*3/uL 150-450 [facility] Work Phone: Serum or plasma calcium jacinta urement (mass/volume)on 04-21-2021 Calcium [Mass/Vol] 8.6 mg/dL 8.5-10.1 [facility] Work Phone: Serum or plasma creatinine m easurement (mass/volume)on 04-21-2021 Creatinine [Mass/Vol] 0.30 mg/dL 0.70-1.30 [facility] Work Phone: Comment on above: The validity of the calculated GFR & GFRAA in patients over 70 years has not been determined. Clinical correlation is essential. Serum or plasma urea nitroge n measurement (mass/volume)on 04-21-2021 Urea nitrogen [Mass/Vol] 18 mg/dL 7-18 [facility] Work Phone: Thin prep Papanicolaou smear with manual screeningon 04-21-2021 Thin prep Papanicolaou smear with manual screening 5 5-15 [facility] Work Phone: Basophil percentageon 2021 Chloride [Moles/Vol] 103 mmol/L 98-107 [facility] Work [facility]: Glucose [Mass/Vol] 90 mg/dL 74-106 [facility] Work Phone: Potassium [Moles/Vol] 3.7 mmol/L 3.5-5.1 [facility] Work Phone: Sodium [Moles/Vol] 137 mmol/L 136-145 [facility] Work Phone: WBC (Bld) [#/Vol] 5.6 10*3/uL 4.4-11.0 [facility] Work Phone: Blood erythrocytes count (nu mber/volume)on 03-25-2021 RBC (Bld) [#/Vol] 4.03 10*6/uL 4.6-6.2 [facility] Work Phone: Blood hemoglobin measurement (mass/volume)on 03-25-2021 Hemoglobin (Bld) [Mass/Vol] 11.5 g/dL 13.0-16.5 [facility] Work Phone: Blood platelet mean volumeon 03-25-2021 Platelet mean volume (Bld) [Entitic vol] 10.5 fL 6.2-12.0 [facility] Work Phone: Determination of erythrocyte mean corpuscular volume (MCV)on 03-25-2021 MCV (RBC) [Entitic vol] 86.8 fL 80-94 [facility] Work Phone: Hematocrit Auto (Bld) [Volum e fraction]on 03-25-2021 Hematocrit (Bld) [Volume fraction] 35.0 % 40-54 [facility] Work Phone: Laboratory - Chemistry and C hemistry - challengeon 03-25-2021 CO2 [Moles/Vol] 28.0 mmol/L 21.0-32.0 [facility] Work Phone: Urea nitrogen/Creatinine [Mass ratio] 54.3 mg/mg 10-20 [facility] Work Phone: Laboratory - Hematology and Cell countson 03-25-2021 Erythrocyte distribution width (RBC) [Entitic vol] 44.0 fL 35.1-43.9 [facility] Work Phone: Erythrocyte distribution width (RBC) [Ratio] 13.7 % 11.6-14.6 [facility] Work Phone: MCH (RBC) [Entitic mass] 28.5 pg 27.0-32.0 [facility] Work Phone: MCHC Auto (RBC) [Mass/Vol]on 03-25-2021 MCHC (RBC) [Mass/Vol] 32.9 g/dL 32-36 [facility] Work Phone: No Panel Informationon 03-25 Estimated GFR (MDRD) Amer 359 mL/min >60 [facility] Work Phone: Comment on above: GFR Calc Estimated GFR (MDRD) Non-Af Amer 297 mL/min >60 [facility] Work Phone: Comment on above: Non- GFR Calc Platelets bldon 03-25-2021 Platelets (Bld) [#/Vol] 175 10*3/uL 150-450 [facility] Work Phone: Serum or plasma calcium jacinta urement (mass/volume)on 03-25-2021 Calcium [Mass/Vol] 8.2 mg/dL 8.5-10.1 [facility] Work Phone: Serum or plasma creatinine m easurement (mass/volume)on 03-25-2021 Creatinine [Mass/Vol] 0.35 mg/dL 0.70-1.30 [facility] Work Phone: Comment on above: The validity of the calculated GFR & GFRAA in patients over 70 years has not been determined. Clinical correlation is essential. Serum or plasma urea nitroge n measurement (mass/volume)on 03-25-2021 Urea nitrogen [Mass/Vol] 19 mg/dL 7-18 [facility] Work Phone: Thin prep Papanicolaou smear with manual screeningon 03-25-2021 Thin prep Papanicolaou smear with manual screening 6 5-15 [facility] Work Phone: Basophil percentageon 2021 Chloride [Moles/Vol] 104 mmol/L 98-107 [facility] Work Phone: Glucose [Mass/Vol] 130 mg/dL 74-106 [facility] Work Phone: Comment on above: Fasting Glucose resu lt greater than or equal to 126 mg/dL suggests DIABETES MELLITUS per A.D.A. criteria.Please note revised GLUCOSE reference range effective 2017. Potassium [Moles/Vol] 3.2 mmol/L 3.5-5.1 [facility] Work Phone: Sodium [Moles/Vol] 139 mmol/L 136-145 [facility] Work Phone: WBC (Bld) [#/Vol] 5.2 10*3/uL 4.4-11.0 [facility] Work Phone: Blood erythrocytes count (nu mber/volume)on 02-24-2021 RBC (Bld) [#/Vol] 3.88 10*6/uL 4.6-6.2 [facility] Work Phone: Blood hemoglobin measurement (mass/volume)on 02-24-2021 Hemoglobin (Bld) [Mass/Vol] 10.8 g/dL 13.0-16.5 [facility] Work Phone: Blood platelet mean volumeon 02-24-2021 Platelet mean volume (Bld) [Entitic vol] 10.7 fL 6.2-12.0 [facility] Work Phone: Determination of erythrocyte mean corpuscular volume (MCV)on 02-24-2021 MCV (RBC) [Entitic vol] 87.4 fL 80-94 [facility] Work Phone: Hematocrit Auto (Bld) [Volum e fraction]on 02-24-2021 Hematocrit (Bld) [Volume fraction] 33.9 % 40-54 [facility] Work Phone: Laboratory - Chemistry and C hemistry - challengeon 02-24-2021 CO2 [Moles/Vol] 26.0 mmol/L 21.0-32.0 [facility] Work Phone: Urea nitrogen/Creatinine [Mass ratio] 49.8 mg/mg 10-20 [facility] Work Phone: Laboratory - Hematology and Cell countson 02-24-2021 Erythrocyte distribution width (RBC) [Entitic vol] 45.6 fL 35.1-43.9 [facility] Work Phone: Erythrocyte distribution width (RBC) [Ratio] 14.3 % 11.6-14.6 [facility] Work Phone: MCH (RBC) [Entitic mass] 27.8 pg 27.0-32.0 [facility] Work Phone: MCHC Auto (RBC) [Mass/Vol]on 02-24-2021 MCHC (RBC) [Mass/Vol] 31.9 g/dL 32-36 [facility] Work Phone: No Panel Informationon 02-24 Estimated GFR (MDRD) Amer 463 mL/min >60 [facility] Work Phone: Comment on above: GFR Calc Estimated GFR (MDRD) Non-Af Amer 382 mL/min >60 [facility] Work Phone: Comment on above: Non- GFR Calc Platelets bldon 02-24-2021 Platelets (Bld) [#/Vol] 175 10*3/uL 150-450 [facility] Work Phone: Serum or plasma calcium jacinta urement (mass/volume)on 02-24-2021 Calcium [Mass/Vol] 8.3 mg/dL 8.5-10.1 [facility] Work Phone: Serum or plasma creatinine m easurement (mass/volume)on 02-24-2021 Creatinine [Mass/Vol] 0.28 mg/dL 0.70-1.30 [facility] Work Phone: Comment on above: The validity of the calculated GFR & GFRAA in patients over 70 years has not been determined. Clinical correlation is essential. Serum or plasma urea nitroge n measurement (mass/volume)on 02-24-2021 Urea nitrogen [Mass/Vol] 14 mg/dL 7-18 [facility] Work Phone: Thin prep Papanicolaou smear with manual screeningon 02-24-2021 Thin prep Papanicolaou smear with manual screening 9 5-15 [facility] Work Phone: Basophil percentageon 2020 Chloride [Moles/Vol] 103 mmol/L 98-107 [facility] Work Phone: Glucose [Mass/Vol] 89 mg/dL 74-106 [facility] Work Phone: Comment on above: Please note revised GLUCOSE reference range effective 2017. Potassium [Moles/Vol] 4.2 mmol/L 3.5-5.1 [facility] Work Phone: Sodium [Moles/Vol] 138 mmol/L 136-145 [facility] Work Phone: WBC (Bld) [#/Vol] 7.3 10*3/uL 4.4-11.0 [facility] Work Phone: Blood erythrocytes count (nu mber/volume)on 01-28-2021 RBC (Bld) [#/Vol] 4.27 10*6/uL 4.6-6.2 [facility] Work Phone: Blood hemoglobin measurement (mass/volume)on 01-28-2021 Hemoglobin (Bld) [Mass/Vol] 11.7 g/dL 13.0-16.5 [facility] Work Phone: Blood platelet mean volumeon 01-28-2021 Platelet mean volume (Bld) [Entitic vol] 10.6 fL 6.2-12.0 [facility] Work Phone: Determination of erythrocyte mean corpuscular volume (MCV)on 01-28-2021 MCV (RBC) [Entitic vol] 85.2 fL 80-94 [facility] Work Phone: Hematocrit Auto (Bld) [Volum e fraction]on 01-28-2021 Hematocrit (Bld) [Volume fraction] 36.4 % 40-54 [facility] Work Phone: Laboratory - Chemistry and C hemistry - challengeon 01-28-2021 CO2 [Moles/Vol] 29.0 mmol/L 21.0-32.0 [facility] Work Phone: Urea nitrogen/Creatinine [Mass ratio] 41.8 mg/mg 10-20 [facility] Work Phone: Laboratory - Hematology and Cell countson 01-28-2021 Erythrocyte distribution width (RBC) [Entitic vol] 44.3 fL 35.1-43.9 [facility] Work Phone: Erythrocyte distribution width (RBC) [Ratio] 14.3 % 11.6-14.6 [facility] Work Phone: MCH (RBC) [Entitic mass] 27.4 pg 27.0-32.0 [facility] Work Phone: MCHC Auto (RBC) [Mass/Vol]on 01-28-2021 MCHC (RBC) [Mass/Vol] 32.1 g/dL 32-36 [facility] Work Phone: No Panel Informationon 01-28 Estimated GFR (MDRD) Amer 378 mL/min >60 [facility] Work Phone: Comment on above: GFR Calc Estimated GFR (MDRD) Non-Af Amer 312 mL/min >60 [facility] Work Phone: Comment on above: Non- GFR Calc Platelets bldon 01-28-2021 Platelets (Bld) [#/Vol] 233 10*3/uL 150-450 [facility] Work Phone: Serum or plasma calcium jacinta urement (mass/volume)on 01-28-2021 Calcium [Mass/Vol] 8.8 mg/dL 8.5-10.1 [facility] Work Phone: Serum or plasma creatinine m easurement (mass/volume)on 01-28-2021 Creatinine [Mass/Vol] 0.34 mg/dL 0.70-1.30 [facility] Work Phone: Comment on above: The validity of the calculated GFR & GFRAA in patients over 70 years has not been determined. Clinical correlation is essential. Serum or plasma urea nitroge n measurement (mass/volume)on 01-28-2021 Urea nitrogen [Mass/Vol] 14 mg/dL 7-18 [facility] Work Phone: Thin prep Papanicolaou smear with manual screeningon 01-28-2021 Thin prep Papanicolaou smear with manual screening 6 5-15 [facility] Work Phone: Office Visit: Peg changeon 0 10-09-2016 Documentation of current medications (procedure) Done Invalid Interpretation Code [facility] [employer] Work Phone: Fall risk assessment No Invalid Interpretation Code [facility] [employer] Work Phone: Tobacco smoking status NHIS Never Invalid Interpretation Code [facility] [employer] Work Phone: Tobacco use CPHS Never smoker Invalid Interpretation Code [facility] [employer] Work Phone: Lab Report: BNP,B-Type NATRI URETIC PEPTIDEon 08-28-2016 BNP 9.5 pg/mL Invalid Interpretation Code 0-100 [facility] Work Phone: [phone] Lab Report: Basic Metabolic Profile (BMP)on 08-28-2016 Anion gap 4 mmol/L Low 5-15 [facility] Work Phone: [phone] BUN/Creatinine Ratio 76.9 RATIO High 10-[address] [facility] Work Phone: [phone] Calcium 8.7 mg/dL Invalid Interpretation Code 8.5-10.1 [facility] Work Phone: [phone] Chloride 106 mmol/L Invalid Interpretation Code 98-107 [facility] Work Phone: [phone] CO2 31.0 mmol/L Invalid Interpretation Code 21.0-32.0 [facility] Work Phone: [phone] Creatinine 0.32 mg/dL Low 0.70-1.30 [facility] Work Phone: [phone] eGFR (non-black) 401 mL/min/{1.73_m2} Invalid Interpretation Code >60 [facility] Work Phone: [phone] eGFR (non-black) 332 mL/min/{1.73_m2} Invalid Interpretation Code >60 [facility] Work Phone: [phone] Glucose 114 mg/dL High 70-110 [facility] Work Phone: [phone] Potassium 3.6 mmol/L Invalid Interpretation Code 3.5-5.1 [facility] Work Phone: [phone] Sodium 141 mmol/L Invalid Interpretation Code 136-145 [facility] Work Phone: [phone] Urea nitrogen 25 mg/dL High 7-18 [facility] Work Phone: [phone] Office Visiton 08-28-2016 Documentation of current medications (procedure) Done Invalid Interpretation Code [facility] Work Phone: [phone] Fall risk assessment No Invalid Interpretation Code [facility] Work Phone: [phone] Clinical 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: 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 08-24-2016 Erythrocytes (RBC) 3.93 10*6/uL Low [facility] Work Phone: [phone] Hematocrit (HCT) 35.4 % Low [facility] Work Phone: [phone] Hemoglobin (HGB) 11.3 g/dL Low [facility] Work Phone: [phone] MCH 28.8 pg Invalid Interpretation Code [facility] Work Phone: [phone] MCHC 31.9 g/dL Low [facility] Work Phone: [phone] MCV 90.1 fL Invalid Interpretation Code [facility] Work Phone: [phone] Platelets 89 10*3/mm3 Low [facility] Work Phone: [phone] PMV by Garrett 12.6 fL High [facility] Work Phone: [phone] RDW-CA 15.7 % High [facility] Work Phone: [phone] WBC (Leukocytes) 4.1 10*3/uL Low [facility] Work Phone: [phone] Office Visit: S/P [place] [facility] 06-15-2016 Documentation of current medications (procedure) Done Invalid Interpretation Code [facility] Work Phone: [phone] Fall risk assessment No Invalid Interpretation Code [facility] Work Phone: [phone] Tobacco smoking status NHIS Never Invalid Interpretation Code [facility] Work Phone: [phone] Tobacco use CPHS Never smoker Invalid Interpretation Code [facility] Work Phone: [phone] Lab Report: CBC-Complete Blo od Cnt No Diffon 05-28-2016 Erythrocytes (RBC) 3.67 10*6/uL Low 4.6-6.[address] [facility] Work Phone: [phone] Hematocrit (HCT) 32.9 % Low 40-54 [facility] Work Phone: [phone] Hemoglobin (HGB) 10.9 g/dL Low 13.0-16.5 [facility] Work Phone: [phone] MCH 29.7 pg Invalid Interpretation Code 27.0-32.0 [facility] Work Phone: [phone] MCHC 33.1 G/GL Invalid Interpretation Code 32-36 [facility] Work Phone: [phone] MCV 89.6 fL Invalid Interpretation Code 80-94 [facility] Work Phone: [phone] Platelets 115 10*3/mm3 Low 150-450 [facility] Work Phone: [phone] PMV by Garrett 11.5 fL Invalid Interpretation Code 6.2-12.0 [facility] Work Phone: [phone] RDW-CA 14.9 % High 11.6-14.6 [facility] Work Phone: [phone] red blood cell distribution width, size density 48.2 fL High 35.1-43.9 [facility] Work Phone: [phone] WBC (Leukocytes) 5.4 10*3/uL Invalid Interpretation Code 4.4-11.0 [facility] Work Phone: [phone] Lab Report: Partial Thrombop last Timeon 05-28-2016 aPTT 24.9 s Invalid Interpretation Code 24.1-36.2 [facility] Work Phone: [phone] Lab Report: Prothrombin Time w/INRon 05-28-2016 Coagulation tissue factor induced in platelet poor plasma 12.7 s Invalid Interpretation Code 11.7-14.9 [facility] Work Phone: [phone] INR in blood by coagulation 1.0 {INR} Invalid Interpretation Code [facility] Work Phone: [phone] Microbiology: Culture, Wound on 01-10-2016 wound culture Vancomycin $ 1 S Invalid Interpretation Code [facility] Work Phone: [phone] Lab Report: Basic Metabolic Profile (BMP)on 09-19-2015 Anion gap 10 mmol/L Invalid Interpretation Code 5-15 [facility] Work Phone: [phone] BUN/Creatinine Ratio 10.9 RATIO Invalid Interpretation Code 10-20 [facility] Work Phone: [phone] Calcium 8.2 mg/dL Low 8.5-10.1 [facility] Work Phone: [phone] Chloride 109 mmol/L High 98-107 [facility] Work Phone: [phone] CO2 23.0 mmol/L Invalid Interpretation Code 21.0-32.0 [facility] Work Phone: [phone] Creatinine 361.97 mL/min Invalid Interpretation Code [facility] Work Phone: [phone] Creatinine 0.28 mg/dL Low 0.70-1.30 [facility] Work Phone: [phone] eGFR (non-black) 403 mL/min/{1.73_m2} Invalid Interpretation Code >60 [facility] Work Phone: [phone] eGFR (non-black) 487 mL/min/{1.73_m2} Invalid Interpretation Code >60 [facility] Work Phone: [phone] Glucose 66 mg/dL Low 70-110 [facility] Work Phone: [phone] Potassium 3.1 mmol/L Low 3.5-5.1 [facility] Work Phone: [phone] Sodium 142 mmol/L Invalid Interpretation Code 136-145 [facility] Work Phone: [phone] Urea nitrogen 3 mg/dL Low 7-18 [facility] Work Phone: [phone] Lab Report: CBC W/Diff, Auto matedon 09-19-2015 Basophils/100 leukocytes 0.2 % Invalid Interpretation Code 0-1 [facility] Work Phone: [phone] Eosinophils/100 leukocytes 1.8 % Invalid Interpretation Code 0-5 [facility] Work Phone: [phone] immature granulocytes, percentage of total cells, blood 0.200 % Invalid Interpretation Code 0.0-0.9 [facility] Work Phone: [phone] Lymphocytes 2.07 X10 3/UL Invalid Interpretation Code 0.83-4.51 [facility] Work Phone: [phone] Lymphocytes/100 leukocytes 40.9 % Invalid Interpretation Code 19-41 [facility] Work Phone: [phone] Monocytes/100 leukocytes 13.8 % High 0-10 [facility] Work Phone: [phone] neutrophil count, blood 2.2 X10 3/UL Invalid Interpretation Code 2.0-7.7 [facility] Work Phone: Neutrophils/100 leukocytes 43.1 % Low 47-70 [facility] Work Phone: Clinical Lists Update: 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 07-03-2014 Smoking cessation education (procedure) yes Invalid Interpretation Code [facility] Work Phone: Bronchoalveolar lavage cultu re with Gram stain Respiratory Culture Pseudomonas aeroginosa [facility] Work Phone: Respiratory Culture Streptococcus agalactiae (B) [facility] Work Phone: Respiratory Culture Positive [facility] Work Phone: Gram stain for investigation of transfusion reaction Microscopic observation Gram stain Nom (Unsp spec) [facility] Work Phone: Laboratory - Microbiology an d Antimicrobial susceptibility Respiratory pathogens DNA and RNA 12b panel YAYO+probe (Unsp spec) [facility] Work Phone: No Panel Information Respiratory Panel (PCR) [facility] Work Phone: SARS-CoV-2 & FLU Antigen (Rapid) [facility] Work Phone: Vital Signs Date Time Vital Sign Value Performing Clinician Facility 06-15-2024 13:47-0400 Body height 152.[address] Chente Conn MD Work Phone: [facility] 06-15-2024 13:47-0400 Body mass index (BMI) [Ratio] 33.2 kg/m2 Dr. Chente Conn MD Work Phone: [facility] 06-15-2024 13:47-0400 Body weight 77.[address] Chente Conn MD Work Phone: [facility] 06-15-2024 13:47-0400 Diastolic blood pressure 59 mm[Hg] Dr. Chente Conn MD Work Phone: [facility] 06-15-2024 13:47-0400 Heart rate 58 /min Dr. Chente Conn MD Work Phone: [facility] 06-15-2024 13:47-0400 Inhaled oxygen flow rate 2 L/min Dr. Chente Conn MD Work Phone: [facility] 06-15-2024 13:47-0400 SaO2% (BldA) [Mass fraction] 95 % Dr. Chente Conn MD Work Phone: [facility] 06-15-2024 13:47-0400 Systolic blood pressure 87 mm[Hg] Dr. Chente Conn MD Work Phone: 1(745)684-211975 [address] 04-04-2024 08:14-0500 Body mass index (BMI) [Ratio] 33.2 kg/m2 Dr. Chente Conn MD Work Phone: 1(205)083-330482 [place] [address] 04-04-2024 08:14-0500 Body temperature 97.1 [degF] Dr. Chetne Conn MD Work Phone: 2(992)672-331182 [place] [address] 04-04-2024 08:14-0500 Body weight 77.[address] Chente Conn MD Work Phone: 6(279)271-814275 [address] 04-04-2024 08:14-0500 Diastolic blood pressure 78 mm[Hg] Dr. Chente Conn MD Work Phone: 9(071)859-358782 [place] [address] 04-04-2024 08:14-0500 Heart rate 73 /min Dr. Chente Conn MD Work Phone: 1(708)488-225682 [place] [address] 04-04-2024 08:14-0500 Inhaled oxygen flow rate 2 L/min Dr. Chente Conn MD Work Phone: 9(506)146-842657 [place] [address] 04-04-2024 08:14-0500 Respiratory rate 20 /min Dr. Chente Conn MD Work Phone: 1(144)675-229475 [address] 04-04-2024 08:14-0500 SaO2% (BldA) [Mass fraction] 97 % Dr. Chente Conn MD Work Phone: 2(200)361-179157 [place] [address] 04-04-2024 08:14-0500 Systolic blood pressure 124 mm[Hg] Dr. Chente Conn MD Work Phone: 1(392)398-979875 [address] 2024 22:05-0500 Body temperature 97.9 [degF] Dr. hCente Conn MD Work Phone: 3(768)351-466257 [place] [address] 2024 22:05-0500 Diastolic blood pressure 106 mm[Hg] Dr. Chente Conn MD Work Phone: 4(812)713-912057 [place] [address] 2024 22:05-0500 Heart rate 72 /min Dr. Chente Conn MD Work Phone: 1(680)150-815582 [place] [address] 2024 22:05-0500 Respiratory rate 20 /min Dr. Chente Conn MD Work Phone: 2(503)036-058182 [place] [address] 2024 22:05-0500 SaO2% (BldA) [Mass fraction] 98 % Dr. Chente Conn MD Work Phone: 9(493)052-976282 [place] [address] 2024 22:05-0500 Systolic blood pressure 155 mm[Hg] Dr. Chente Conn MD Work Phone: 5(551)658-714957 [place] [address] 2024 22:00-0500 Inhaled oxygen flow rate 4 L/min Dr. Chente Conn MD Work Phone: 4(054)186-817282 [place] [address] 2024 18:08-0500 Inhaled oxygen concentration 4 % Dr. Chente Conn MD Work Phone: 2(780)626-764782 [place] [address] 2024 16:08-0500 Body height 152.[address] Chente Conn MD Work Phone: 0(770)540-716982 [place] [address] 2024 16:08-0500 Body mass index (BMI) [Ratio] 36.2 kg/m2 Dr. Chente Conn MD Work Phone: 1(591)907-099382 [place] [address] 2024 16:08-0500 Body weight 84.[address] Chente Conn MD Work Phone: 7(128)395-416782 [place] [address] 04-13-2023 16:06-0500 Body temperature 98.6 [degF] Dr. Chente Conn Work Phone: 5(657)594-510457 [place] [address] 04-13-2023 16:06-0500 Diastolic blood pressure 78 mm[Hg] Dr. Chente Conn Work Phone: [facility] 04-13-2023 16:06-0500 Heart rate 91 /min Dr. Chente Conn Work Phone: [facility] 04-13-2023 16:06-0500 Respiratory rate 17 /min Dr. Chente Conn Work Phone: 9(237)717-553957 [place] [address] 04-13-2023 16:06-0500 SaO2% (BldA) [Mass fraction] 96 % Dr. Chente Conn Work Phone: 9(559)528-802557 [place] [address] 04-13-2023 16:06-0500 Systolic blood pressure 101 mm[Hg] Dr. Chente Conn Work Phone: 5(045)232-248657 [place] [address] 04-13-2023 12:40-0500 Inhaled oxygen flow rate 3.5 L/min Dr. Chente Conn Work Phone: 6(479)364-405757 [place] [address] 04-13-2023 12:11-0500 Body height 152.[address] Chente Conn Work Phone: 0(384)061-102357 [place] [address] 04-13-2023 12:11-0500 Body mass index (BMI) [Ratio] 34.2 kg/m2 Dr. Chente Conn Work Phone: 4(465)903-824657 [place] [address] 04-13-2023 12:11-0500 Body weight 79.[address] Chente Conn Work Phone: [facility] 03-25-2023 09:30-0500 Inhaled oxygen flow rate 5 L/min Dr. Chente Conn Work Phone: 5(786)978-950357 [place] [address] 03-25-2023 09:17-0500 Body temperature 97.3 [degF] Dr. Chente Conn Work Phone: [facility] 03-25-2023 09:17-0500 Diastolic blood pressure 78 mm[Hg] Dr. Chente Conn Work Phone: [facility] 03-25-2023 09:17-0500 Heart rate 57 /min Dr. Chente Conn Work Phone: [facility] 03-25-2023 09:17-0500 Respiratory rate 13 /min Dr. Chente Conn Work Phone: [facility] 03-25-2023 09:17-0500 SaO2% (BldA) [Mass fraction] 97 % Dr. Chente Conn Work Phone: [facility] 03-25-2023 09:17-0500 Systolic blood pressure 121 mm[Hg] Dr. Chente Conn Work Phone: [facility] 03-25-2023 03:46-0500 Body mass index (BMI) [Ratio] 34.3 kg/m2 Dr. Chente Conn Work Phone: [facility] 03-25-2023 03:46-0500 Body weight 79.[address] Chente Conn Work Phone: [facility] 03-24-2023 09:21-0500 Body height 152.[address] Chente Conn Work Phone: [facility] 03-23-2023 16:45-0500 Body temperature 97.6 [degF] Dr. Chente Conn Work Phone: [facility] 03-23-2023 16:45-0500 Diastolic blood pressure 81 mm[Hg] Dr. Chente Conn Work Phone: [facility] 03-23-2023 16:45-0500 Heart rate 112 /min Dr. Chente Conn Work Phone: [facility] 03-23-2023 16:45-0500 Respiratory rate 20 /min Dr. Chente Conn Work Phone: [facility] 03-23-2023 16:45-0500 Systolic blood pressure 124 mm[Hg] Dr. Chente Conn Work Phone: [facility] 03-23-2023 15:25-0500 SaO2% (BldA) [Mass fraction] 95 % Dr. Chente Conn Work Phone: [facility] 03-23-2023 12:12-0500 Body height 152.[address] Chente Conn Work Phone: [facility] 03-23-2023 12:12-0500 Body mass index (BMI) [Ratio] 34.8 kg/m2 Dr. Chente Conn Work Phone: [facility] 03-23-2023 12:12-0500 Body weight 80.[address] Chente Conn Work Phone: 2(728)960-454057 [place] [address] 03-02-2023 09:13-0500 Body height 152.[address] Chente Conn Work Phone: 9(282)667-468975 [address] 03-02-2023 09:13-0500 Body mass index (BMI) [Ratio] 29.2 kg/m2 Dr. Chente Conn Work Phone: 2(878)718-457757 [place] [address] 03-02-2023 09:13-0500 Body temperature 97.3 [degF] Dr. Chente Conn Work Phone: 8(518)610-851557 [place] [address] 03-02-2023 09:13-0500 Body weight 68.[address] Chente Conn Work Phone: 2(505)122-900357 [place] [address] 03-02-2023 09:13-0500 Diastolic blood pressure 74 mm[Hg] Dr. Chente Conn Work Phone: [facility] 03-02-2023 09:13-0500 Heart rate 77 /min Dr. Chente Conn Work Phone: 2(167)088-683857 [place] [address] 03-02-2023 09:13-0500 Inhaled oxygen flow rate 2 L/min Dr. Chente Conn Work Phone: [facility] 03-02-2023 09:13-0500 Respiratory rate 20 /min Dr. Chente Conn Work Phone: [facility] 03-02-2023 09:13-0500 SaO2% (BldA) [Mass fraction] 97 % Dr. Chente Conn Work Phone: [facility] 03-02-2023 09:13-0500 Systolic blood pressure 104 mm[Hg] Dr. Chente Conn Work Phone: [facility] 01-16-2023 23:36-0500 Diastolic blood pressure 78 mm[Hg] Dr. Chente Conn Work Phone: [facility] 01-16-2023 23:36-0500 Heart rate 91 /min Dr. Chente Conn Work Phone: [facility] 01-16-2023 23:36-0500 Respiratory rate 16 /min Dr. Chente Conn Work Phone: [facility] 01-16-2023 23:36-0500 SaO2% (BldA) [Mass fraction] 98 % Dr. Chente Conn Work Phone: [facility] 01-16-2023 23:36-0500 Systolic blood pressure 127 mm[Hg] Dr. Chente Conn Work Phone: [facility] 01-16-2023 21:05-0500 Inhaled oxygen flow rate 4 L/min Dr. Chente Conn Work Phone: [facility] 01-16-2023 19:17-0500 Body height 152.[address] Chente Conn Work Phone: [facility] 01-16-2023 19:17-0500 Body mass index (BMI) [Ratio] 34.4 kg/m2 Dr. Chente Conn Work Phone: [facility] 01-16-2023 19:17-0500 Body temperature 97.3 [degF] Dr. Chente Conn Work Phone: [facility] 01-16-2023 19:17-0500 Body weight [address] Chente Conn Work Phone: [facility] 12-13-2022 14:22-0400 Inhaled oxygen concentration 30 % Dr. Chente Conn Work Phone: [facility] 12-13-2022 08:25-0400 Inhaled oxygen flow rate 4.5 L/min Dr. Chente Conn Work Phone: [facility] 12-13-2022 08:25-0400 SaO2% (BldA) [Mass fraction] 97 % Dr. Chente Conn Work Phone: [facility] 12-13-2022 07:56-0400 Body temperature 98.6 [degF] Dr. Chente Conn Work Phone: [facility] 12-13-2022 07:56-0400 Diastolic blood pressure 98 mm[Hg] Dr. Chente Conn Work Phone: [facility] 12-13-2022 07:56-0400 Heart rate 89 /min Dr. Chente Conn Work Phone: [facility] 12-13-2022 07:56-0400 Respiratory rate 18 /min Dr. Chente Conn Work Phone: [facility] 12-13-2022 07:56-0400 Systolic blood pressure 150 mm[Hg] Dr. Chente Conn Work Phone: [facility] 12-11-2022 13:56-0400 Body temperature 98.2 [degF] Dr. Chente Conn Work Phone: [facility] 12-11-2022 13:56-0400 Diastolic blood pressure 40 mm[Hg] Dr. Chente Conn Work Phone: [facility] 12-11-2022 13:56-0400 Heart rate 81 /min Dr. Chente Conn Work Phone: [facility] 12-11-2022 13:56-0400 Respiratory rate 18 /min Dr. Chente Conn Work Phone: [facility] 12-11-2022 13:56-0400 SaO2% (BldA) [Mass fraction] 100 % Dr. Chente Conn Work Phone: [facility] 12-11-2022 13:56-0400 Systolic blood pressure 147 mm[Hg] Dr. Chente Conn Work Phone: [facility] 12-11-2022 13:28-0400 Inhaled oxygen concentration 30 % Dr. Chente Conn Work Phone: [facility] 12-11-2022 12:44-0400 Inhaled oxygen flow rate 8 L/min Dr. Chente Conn Work Phone: [facility] 12-10-2022 16:06-0400 Body height 152.[address] Chente Conn Work Phone: [facility] 12-10-2022 16:06-0400 Body weight 77.[address] Chente Conn Work Phone: [facility] 12-10-2022 14:53-0400 Body mass index (BMI) [Ratio] 33.3 kg/m2 Dr. Chente Conn Work Phone: [facility] 12-10-2022 14:36-0400 Heart rate 112 /min Dr. Chente Conn Work Phone: [facility] 12-10-2022 14:36-0400 Respiratory rate 26 /min Dr. Chente Conn Work Phone: [facility] 12-10-2022 14:36-0400 SaO2% (BldA) [Mass fraction] 98 % Dr. Chente Conn Work Phone: [facility] 12-10-2022 12:40-0400 Body temperature 99.3 [degF] Dr. Chente Conn Work Phone: [facility] 12-10-2022 12:40-0400 Diastolic blood pressure 86 mm[Hg] Dr. Chente Conn Work Phone: [facility] 12-10-2022 12:40-0400 Systolic blood pressure 140 mm[Hg] Dr. Chente Conn Work Phone: [facility] 12-10-2022 09:37-0400 Body height 152.[address] Chente Conn Work Phone: [facility] 12-10-2022 09:37-0400 Body mass index (BMI) [Ratio] 40 kg/m2 Dr. Chente Conn Work Phone: [facility] 12-10-2022 09:37-0400 Body weight [address] Chente Conn Work Phone: [facility] 11-05-2022 14:00-0400 Inhaled oxygen concentration 28 % Dr. Chente Conn Work Phone: 2(825)804-564975 [address] 11-05-2022 13:30-0400 Body temperature 97 [degF] Dr. Chente Conn Work Phone: 5(425)114-486575 [address] 11-05-2022 13:30-0400 Diastolic blood pressure 93 mm[Hg] Dr. Chente Conn Work Phone: [facility] 11-05-2022 13:30-0400 Heart rate 90 /min Dr. Chente Conn Work Phone: 2(019)764-329957 [place] [address] 11-05-2022 13:30-0400 Inhaled oxygen flow rate 3 L/min Dr. Chente Conn Work Phone: [facility] 11-05-2022 13:30-0400 Respiratory rate 16 /min Dr. Chente Conn Work Phone: [facility] 11-05-2022 13:30-0400 SaO2% (BldA) [Mass fraction] 93 % Dr. Chente Conn Work Phone: [facility] 11-05-2022 13:30-0400 Systolic blood pressure 138 mm[Hg] Dr. Chente Conn Work Phone: [facility] 11-02-2022 10:44-0400 Body height 152.[address] Chente Conn Work Phone: [facility] 11-02-2022 10:44-0400 Body weight [address] Chente Conn Work Phone: [facility] 10-28-2022 05:38-0400 Body mass index (BMI) [Ratio] 32.8 kg/m2 Dr. Chente Conn Work Phone: [facility] 09-17-2022 13:19-0400 Body height 150.[address] Chente Conn Work Phone: [facility] 09-17-2022 13:19-0400 Body mass index (BMI) [Ratio] 32.2 kg/m2 Dr. Chente Conn Work Phone: [facility] 09-17-2022 13:19-0400 Body temperature 96.6 [degF] Dr. Chente Conn Work Phone: [facility] 09-17-2022 13:19-0400 Body weight 72.[address] Chente Conn Work Phone: [facility] 09-17-2022 13:19-0400 Diastolic blood pressure 72 mm[Hg] Dr. Chente Conn Work Phone: [facility] 09-17-2022 13:19-0400 Heart rate 78 /min Dr. Chente Conn Work Phone: [facility] 09-17-2022 13:19-0400 Inhaled oxygen flow rate 2 L/min Dr. Chente Conn Work Phone: [facility] 09-17-2022 13:19-0400 Respiratory rate 20 /min Dr. Chente Conn Work Phone: [facility] 09-17-2022 13:19-0400 SaO2% (BldA) [Mass fraction] 96 % Dr. Chente Conn Work Phone: [facility] 09-17-2022 13:19-0400 Systolic blood pressure 110 mm[Hg] Dr. Chente Conn Work Phone: [facility] 05-01-2023 20:35-0400 Body temperature 97.6 [degF] Dr. Chente Conn Work Phone: [facility] 06-22-2022 20:35-0400 Diastolic blood pressure 74 mm[Hg] Dr. Chente Conn Work Phone: [facility] 06-22-2022 20:35-0400 Heart rate 90 /min Dr. Chente Conn Work Phone: [facility] 06-22-2022 20:35-0400 Respiratory rate 18 /min Dr. Chente Conn Work Phone: [facility] 06-22-2022 20:35-0400 SaO2% (BldA) [Mass fraction] 94 % Dr. Chente Conn Work Phone: [facility] 06-22-2022 20:35-0400 Systolic blood pressure 102 mm[Hg] Dr. Chente Conn Work Phone: [facility] 06-22-2022 18:20-0400 Body height 150.[address] Chente Conn Work Phone: [facility] 06-22-2022 18:20-0400 Body mass index (BMI) [Ratio] 38.7 kg/m2 Dr. Chente Conn Work Phone: [facility] 06-22-2022 18:20-0400 Body weight 87.[address] Chente Conn Work Phone: [facility] 06-22-2022 18:20-0400 Inhaled oxygen flow rate 4 L/min Dr. Chente Conn Work Phone: [facility] 06-12-2022 12:17-0400 Body temperature 97.5 [degF] Dr. Chente Conn Work Phone: [facility] 06-12-2022 12:17-0400 Diastolic blood pressure 73 mm[Hg] Dr. Chente Conn Work Phone: [facility] 06-12-2022 12:17-0400 Heart rate 64 /min Dr. Chente Conn Work Phone: [facility] 06-12-2022 12:17-0400 Respiratory rate 18 /min Dr. Chente Conn Work Phone: [facility] 06-12-2022 12:17-0400 SaO2% (BldA) [Mass fraction] 96 % Dr. Chente Conn Work Phone: [facility] 06-12-2022 12:17-0400 Systolic blood pressure 109 mm[Hg] Dr. Chente Conn Work Phone: [facility] 06-12-2022 10:38-0400 Body height 149.[address] Chente Conn Work Phone: 1(958)384-865757 [place] [address] 06-12-2022 10:38-0400 Body mass index (BMI) [Ratio] 34.2 kg/m2 Dr. Chente Conn Work Phone: 5(229)006-911957 [place] [address] 06-12-2022 10:38-0400 Body weight [address] Chente Conn Work Phone: [facility] 06-12-2022 10:38-0400 Inhaled oxygen flow rate 5 L/min Dr. Chente Conn Work Phone: [facility] 04-01-2022 09:00-0500 Body temperature 99.2 [degF] Dr. Chente Conn Work Phone: [facility] 04-01-2022 09:00-0500 Diastolic blood pressure 90 mm[Hg] Dr. Chente Conn Work Phone: [facility] 04-01-2022 09:00-0500 Heart rate 88 /min Dr. Chente Conn Work Phone: [facility] 04-01-2022 09:00-0500 Inhaled oxygen flow rate 4 L/min Dr. Chente Conn Work Phone: [facility] 04-01-2022 09:00-0500 Respiratory rate 20 /min Dr. Chente Conn Work Phone: [facility] 04-01-2022 09:00-0500 SaO2% (BldA) [Mass fraction] 96 % Dr. Chente Conn Work Phone: [facility] 04-01-2022 09:00-0500 Systolic blood pressure 117 mm[Hg] Dr. Chente Conn Work Phone: [facility] 04-01-2022 04:58-0500 Body weight 76.[address] Chente Conn Work Phone: [facility] 03-31-2022 09:20-0500 Body height 151.[address] Chente Conn Work Phone: [facility] 03-24-2022 21:35-0500 Body height 151.[address] Chente Conn Work Phone: [facility] 03-24-2022 21:35-0500 Body mass index (BMI) [Ratio] 33.8 kg/m2 Dr. Chente Conn Work Phone: [facility] 03-24-2022 21:35-0500 Body weight 78.[address] Chente Conn Work Phone: [facility] 03-24-2022 20:54-0500 Body temperature 104 [degF] Dr. Chente Conn Work Phone: [facility] 03-24-2022 20:54-0500 Diastolic blood pressure 123 mm[Hg] Dr. Chente Conn Work Phone: [facility] 03-24-2022 20:54-0500 Heart rate 153 /min Dr. Chente Conn Work Phone: [facility] 03-24-2022 20:54-0500 Respiratory rate 44 /min Dr. Chente Conn Work Phone: [facility] 03-24-2022 20:54-0500 SaO2% (BldA) [Mass fraction] 93 % Dr. Chente Conn Work Phone: [facility] 03-24-2022 20:54-0500 Systolic blood pressure 145 mm[Hg] Dr. Chente Conn Work Phone: [facility] 03-24-2022 17:08-0500 Body height 152.[address] Chente Conn Work Phone: [facility] 03-24-2022 17:08-0500 Body mass index (BMI) [Ratio] 31.2 kg/m2 Dr. Chente Conn Work Phone: [facility] 03-24-2022 17:08-0500 Body weight 72.[address] Chente Conn Work Phone: [facility] 02-24-2022 22:38-0500 Body temperature 98.9 [degF] Dr. Chente Conn Work Phone: [facility] 02-24-2022 22:38-0500 Diastolic blood pressure 78 mm[Hg] Dr. Chente Conn Work Phone: [facility] 02-24-2022 22:38-0500 Heart rate 78 /min Dr. Chente Conn Work Phone: [facility] 02-24-2022 22:38-0500 Respiratory rate 13 /min Dr. Chente Conn Work Phone: [facility] 02-24-2022 22:38-0500 SaO2% (BldA) [Mass fraction] 95 % Dr. Chente Conn Work Phone: [facility] 02-24-2022 22:38-0500 Systolic blood pressure 127 mm[Hg] Dr. Chente Conn Work Phone: [facility] 02-24-2022 19:50-0500 Inhaled oxygen flow rate 4 L/min Dr. Chente Conn Work Phone: [facility] 02-24-2022 16:09-0500 Body height 152.[address] Chente Conn Work Phone: [facility] Work Phone: 02-24-2022 16:09-0500 Body mass index (BMI) [Ratio] 31.6 kg/m2 Dr. Chente Conn Work Phone: [facility] 02-24-2022 16:09-0500 Body weight 73.[address] Chente Conn Work Phone: [facility] 01-06-2022 13:12-0500 Body height 152.[address] Chente Conn Work Phone: [facility] Work Phone: 01-06-2022 13:12-0500 Body mass index (BMI) [Ratio] 31.2 kg/m2 Dr. Chente Conn Work Phone: [facility] 01-06-2022 13:12-0500 Body weight 72.[address] Chente Conn Work Phone: [facility] 01-06-2022 13:12-0500 Diastolic blood pressure 109 mm[Hg] Dr. Chente Conn Work Phone: [facility] 01-06-2022 13:12-0500 Heart rate 106 /min Dr. Chente Conn Work Phone: [facility] 01-06-2022 13:12-0500 Respiratory rate 18 /min Dr. Chente Conn Work Phone: [facility] 01-06-2022 13:12-0500 SaO2% (BldA) [Mass fraction] 94 % Dr. Chente Conn Work Phone: [facility] 01-06-2022 13:12-0500 Systolic blood pressure 144 mm[Hg] Dr. Chente Conn Work Phone: [facility] 12-19-2021 13:22-0400 Body height 152.[address] Chente Conn Work Phone: [facility] Work Phone: 12-19-2021 13:22-0400 Body mass index (BMI) [Ratio] 31.2 kg/m2 Dr. Chente Conn Work Phone: [facility] 12-19-2021 13:22-0400 Body temperature 95.7 [degF] Dr. Chente Conn Work Phone: [facility] 12-19-2021 13:22-0400 Body weight 72.[address] Chente Conn Work Phone: [facility] 12-19-2021 13:22-0400 Diastolic blood pressure 76 mm[Hg] Dr. Chente Conn Work Phone: [phone] [place] [address] 12-19-2021 13:22-0400 Heart rate 66 /min Dr. Chente Conn Work Phone: [facility] 12-19-2021 13:22-0400 Inhaled oxygen flow rate 2 L/min Dr. Chnete Conn Work Phone: [facility] 12-19-2021 13:22-0400 Respiratory rate 18 /min Dr. Chente Conn Work Phone: [facility] 12-19-2021 13:22-0400 SaO2% (BldA) [Mass fraction] 94 % Dr. Chente Conn Work Phone: [facility] 12-19-2021 13:22-0400 Systolic blood pressure 110 mm[Hg] Dr. Chente Conn Work Phone: [facility] 12-05-2021 15:00-0400 Body temperature 98.2 [degF] Dr. Chente Conn Work Phone: [facility] 12-05-2021 15:00-0400 Diastolic blood pressure 95 mm[Hg] Dr. Chente Conn Work Phone: [facility] 12-05-2021 15:00-0400 Heart rate 86 /min Dr. Chente Conn Work Phone: [facility] 12-05-2021 15:00-0400 Inhaled oxygen flow rate 4 L/min Dr. Chente Conn Work Phone: [facility] 12-05-2021 15:00-0400 Respiratory rate 17 /min Dr. Chente Conn Work Phone: [facility] 12-05-2021 15:00-0400 SaO2% (BldA) [Mass fraction] 95 % Dr. Chente Conn Work Phone: [facility] 12-05-2021 15:00-0400 Systolic blood pressure 118 mm[Hg] Dr. Chente Conn Work Phone: [facility] 12-04-2021 11:44-0400 Body height 152.[address] Chente Conn Work Phone: [facility] Work Phone: 12-04-2021 11:44-0400 Body weight 74.[address] Chente Conn Work Phone: [facility] 11-30-2021 15:07-0400 Body mass index (BMI) [Ratio] 32.2 kg/m2 Dr. Chente Conn Work Phone: [facility] 11-30-2021 14:32-0400 Body temperature 97.8 [degF] Dr. Chente Conn Work Phone: [facility] Work Phone: 11-30-2021 14:32-0400 Diastolic blood pressure 69 mm[Hg] Dr. Chente Conn Work Phone: [facility] Work Phone: 11-30-2021 14:32-0400 Heart rate 76 /min Dr. Chente Conn Work Phone: [facility] Work Phone: 11-30-2021 14:32-0400 Respiratory rate 15 /min Dr. Chente Conn Work Phone: [facility] Work Phone: 11-30-2021 14:32-0400 SaO2% (BldA) [Mass fraction] 96 % Dr. Chente Conn Work Phone: [facility] Work Phone: 11-30-2021 14:32-0400 Systolic blood pressure 112 mm[Hg] Dr. Chente Conn Work Phone: [facility] Work Phone: 11-30-2021 12:19-0400 Inhaled oxygen flow rate 4 L/min Dr. Chente Conn Work Phone: [facility] Work Phone: 11-30-2021 11:05-0400 Body height 121.[address] Chente Conn Work Phone: [facility] Work Phone: 11-30-2021 11:05-0400 Body mass index (BMI) [Ratio] 53.1 kg/m2 Dr. Chente Conn Work Phone: [facility] Work Phone: 11-30-2021 11:05-0400 Body weight [address] Chente Conn Work Phone: [facility] Work Phone: 08-19-2021 14:26-0400 Body height 152.[address] Chente Conn Work Phone: [facility] Work Phone: 08-19-2021 14:17-0400 Body mass index (BMI) [Ratio] 30.8 kg/m2 Dr. Chente Conn Work Phone: [facility] Work Phone: 08-19-2021 14:17-0400 Body temperature 97 [degF] Dr. Chente Conn Work Phone: [facility] Work Phone: 08-19-2021 14:17-0400 Body weight 71.[address] Chente Conn Work Phone: [facility] Work Phone: 08-19-2021 14:17-0400 Diastolic blood pressure 68 mm[Hg] Dr. Chente Conn Work Phone: [facility] Work Phone: 08-19-2021 14:17-0400 Heart rate 57 /min Dr. Chente Conn Work Phone: [facility] Work Phone: 08-19-2021 14:17-0400 Respiratory rate 17 /min Dr. Chente Conn Work Phone: [facility] Work Phone: 08-19-2021 14:17-0400 SaO2% (BldA) [Mass fraction] 97 % Dr. Chente Conn Work Phone: [facility] Work Phone: 08-19-2021 14:17-0400 Systolic blood pressure 110 mm[Hg] Dr. Chente Conn Work Phone: [facility] Work Phone: 07-16-2021 09:03-0400 Body height 152.[address] Chente Conn Work Phone: [facility] Work Phone: 07-16-2021 09:03-0400 Body mass index (BMI) [Ratio] 30.7 kg/m2 Dr. Chente Conn Work Phone: [facility] Work Phone: 07-16-2021 09:03-0400 Body weight 71.[address] Chente Conn Work Phone: [facility] Work Phone: 07-16-2021 09:03-0400 Diastolic blood pressure 71 mm[Hg] Dr. Chente Conn Work Phone: [facility] Work Phone: 07-16-2021 09:03-0400 Heart rate 68 /min Dr. Chente Conn Work Phone: [facility] Work Phone: 07-16-2021 09:03-0400 Respiratory rate 18 /min Dr. Chente Conn Work Phone: [facility] Work Phone: 07-16-2021 09:03-0400 SaO2% (BldA) [Mass fraction] 99 % Dr. Chente Conn Work Phone: [facility] Work Phone: 07-16-2021 09:03-0400 Systolic blood pressure 102 mm[Hg] Dr. Chente Conn Work Phone: [facility] Work Phone: 05-19-2021 21:15-0400 Diastolic blood pressure 72 mm[Hg] Dr. Chente Conn Work Phone: [facility] Work Phone: 05-19-2021 21:15-0400 Heart rate 79 /min Dr. Chente Conn Work Phone: [facility] Work Phone: 05-19-2021 21:15-0400 Respiratory rate 15 /min Dr. Chente Conn Work Phone: [facility] Work Phone: 05-19-2021 21:15-0400 SaO2% (BldA) [Mass fraction] 98 % Dr. Chente Conn Work Phone: [facility] Work Phone: 05-19-2021 21:15-0400 Systolic blood pressure 140 mm[Hg] Dr. Chente Conn Work Phone: [facility] Work Phone: 05-19-2021 18:07-0400 Body height 152.[address] Chente Conn Work Phone: [facility] Work Phone: 05-19-2021 18:07-0400 Body mass index (BMI) [Ratio] 31.8 kg/m2 Dr. Chente Conn Work Phone: [facility] Work Phone: 05-19-2021 18:07-0400 Body temperature 97.6 [degF] Dr. Chente Conn Work Phone: [facility] Work Phone: 05-19-2021 18:07-0400 Body weight [address] Chente Conn Work Phone: [facility] Work Phone: 04-15-2021 13:10-0500 Body temperature 97.2 [degF] Dr. Chente Conn Work Phone: [facility] Work Phone: 04-15-2021 13:10-0500 Body weight 72.[address] Chente Conn Work Phone: [facility] Work Phone: 04-15-2021 13:10-0500 Heart rate 85 /min Dr. Chente Conn Work Phone: [facility] Work Phone: 04-15-2021 13:10-0500 Respiratory rate 16 /min Dr. Chente Conn Work Phone: [facility] Work Phone: 04-15-2021 13:10-0500 SaO2% (BldA) [Mass fraction] 95 % Dr. Chente Conn Work Phone: [facility] Work Phone: 04-15-2021 12:10-0500 Body temperature 97.2 [degF] Dr. Chente Conn Work Phone: [facility] Work Phone: 04-15-2021 12:10-0500 Body weight 72.[address] Chente Conn Work Phone: [facility] Work Phone: 04-15-2021 12:10-0500 Heart rate 85 /min Dr. Chente Conn Work Phone: [facility] Work Phone: 04-15-2021 12:10-0500 Respiratory rate 16 /min Dr. Chente Conn Work Phone: [facility] Work Phone: 04-15-2021 12:10-0500 SaO2% (BldA) [Mass fraction] 95 % Dr. Chente Conn Work Phone: [facility] Work Phone: 03-24-2021 23:17-0500 Body mass index (BMI) [Ratio] 0 kg/m2 Dr. Chente Conn Work Phone: [facility] Work Phone: 02-21-2021 23:10-0500 Body mass index (BMI) [Ratio] 0 kg/m2 Dr. Chente Conn Work Phone: [facility] Work Phone: 01-21-2021 23:06-0500 Body mass index (BMI) [Ratio] 0 kg/m2 Dr. Chente Conn Work Phone: [facility] Work Phone: 08-28-2016 09:39-0400 BMI (Body Mass Index) 30.27 kg/m2 [facility] Work Phone: 08-28-2016 09:39-0400 BP Diastolic 62 mm[Hg] [facility] Work Phone: 08-28-2016 09:39-0400 BP Systolic 106 mm[Hg] [facility] Work Phone: 08-28-2016 09:39-0400 Height 152.4 cm [facility] Work Phone: 08-28-2016 09:39-0400 Pulse (Heart Rate) 78 /min [facility] Work Phone: 08-28-2016 09:39-0400 Respiratory Rate 12 /min Harumi De[facility]is [facility] Work Phone: 08-28-2016 09:39-0400 Weight 70.31 kg Harbennett DeFinis [facility] Work Phone: 06-15-2016 11:14-0400 BP Diastolic 87 mm[Hg] Chente Lara [employer] [facility] Work Phone: 06-15-2016 11:14-0400 BP Systolic 111 mm[Hg] Chente Lara [employer] [facility] Work Phone: 06-15-2016 11:14-0400 Pulse (Heart Rate) 60 /min Chente Lara [employer] [facility] Work Phone: 06-15-2016 11:14-0400 Respiratory Rate 16 /min Chente Lara [employer] [facility] Work Phone: 01-08-2016 09:55-0500 Body Temperature 97.2 [degF] Chente Marco [employer] [facility] Work Phone: Encounters Encounter Date Encounter Type Care Provider Facility Start: 09-03-2024 ambulatory Chente Conn Facilit y:[facility] Start: 09-01-2024 ambulatory Chente Conn Facilit y:[facility] Start: 08-22-2024 End: 08-22-[address] Chente Conn MD Work Phone: -Laboratory Specimen Start: 08-22-2024 End: 08-22-[address] Chente Conn MD -Laboratory Specimen Work Phone: Start: 08-22-2024 End: 08-22-2024 ambulatory Chente Conn Facility:[facility] Start: 07-26-2024 End: 07-26-2024 ambulatory Chente Conn MD [facility] Work Phone: Start: 07-26-2024 End: 07-26-[address] Roddy Quinones MD -Radiology [place] Work Phone: Start: 07-25-2024 End: 08-21-[address] Chente Conn MD -Laboratory Specimen Work Phone: Start: 07-25-[address] Chente Conn MD -Laboratory Specimen Work Phone: Start: 07-25-2024 End: 08-21-[address] Chente Conn MD Work Phone: -Laboratory Specimen Start: 07-18-2024 End: 07-18-[address] Chente Conn MD Work Phone: [facility] Work Phone: Start: 07-18-2024 End: 07-18-[address] Matteo Posadas MD -Laboratory Specimen Work Phone: Start: 07-18-2024 End: 07-18-2024 ambulatory Chente Conn Facility:[facility] Start: 06-26-2024 End: 06-26-[address] Chente Conn MD Work Phone: [facility] Work Phone: Start: 06-26-2024 End: 06-26-[address] Chente Conn MD -Laboratory, Specimen Work Phone: Start: 06-26-2024 End: 06-26-2024 ambulatory Chente Conn Facility:[facility] Start: 06-15-2024 End: 06-15-[address] Matteo Posadas MD -[facility] Work Phone: Start: 06-15-2024 End: 06-15-2024 ambulatory Chente Conn [facility] Start: 05-29-2024 End: 06-21-[address] Chente Conn MD -Laboratory, Specimen Work Phone: Start: 05-29-2024 End: 06-21-2024 ambulatory Chente Conn Facility:[facility] Start: 05-09-2024 End: 05-09-[address] Chente Conn MD Work Phone: [facility] Work Phone: Start: 05-09-2024 End: 05-09-2024 Patient encounter procedure Valarie Kee NP-C -Laboratory, Specimen Work Phone: Start: 05-09-2024 End: 05-09-2024 ambulatory Chente Conn Facility:[facility] Start: 05-01-2024 End: 05-22-[address] Chente Conn MD -Laboratory, Specimen Work Phone: Start: 05-01-[address] Chente Conn MD -Laboratory, Specimen Work Phone: Start: 05-01-2024 End: 05-22-[address] Chente Conn MD Work Phone: [facility] Work Phone: Start: 04-27-2024 ambulatory Chente Conn [facility] y:[facility] Start: 04-25-2024 End: 04-25-[address] Chente Conn MD -Outpatient Bone Densitometry Work Phone: Start: 04-25-2024 End: 04-25-2024 ambulatory Chente Conn Facility:[facility] Start: 04-04-2024 End: 04-04-2024 Patient encounter procedure SRINIVAS [facility] Work Phone: Start: 04-04-2024 End: 04-04-2024 ambulatory Chente Conn Facility[place] Start: 04-03-2024 End: 04-21-[address] Chente Conn MD -Laboratory, Specimen Work Phone: Start: 04-03-2024 End: 04-21-2024 ambulatory Chente Conn Facility:[facility] Start: 03-16-2024 End: 03-16-[address] Roddy Quinones MD -Radiology, [facility] Work Phone: Start: 03-16-2024 End: 03-16-2024 ambulatory Chente Conn Facility:[facility] Start: 03-08-2024 End: 03-08-[address] Chente Conn MD -Laboratory, Specimen Work Phone: Start: 03-08-2024 End: 03-08-2024 ambulatory Chente Conn Facility:[facility] Start: 02-24-2024 End: 03-24-2024 ambulatory Chente Conn Facility:[facility] Start: 02-24-2024 End: 03-24-[address] Chente Conn MD -Laboratory, Specimen Work Phone: Start: 2024 ambulatory Chente Conn Facilit y:[facility] Start: 2024 Non-patient / Non-visit Dr. Torey Weber MD -[facility] Start: 2024 End: 2024 Emergency department patient visit Dr. Racquel Moss DO -Emergency Department Work Phone: Start: 01-27-2024 End: 02-22-[address] Chente Conn MD -Laboratory, Specimen Work Phone: Start: 01-27-2024 End: 02-22-2024 ambulatory Chente Conn Facility:[facility] Start: 01-14-2024 End: 01-14-2024 ambulatory Chente Conn Facility:[facility] Start: 01-04-2024 ambulatory Michael Posadas Facility:[facility] Start: 01-04-2024 End: 01-10-2024 Evaluation and management of inpatient Michael Posadas Facility:[facility] Start: 12-28-2023 End: 12-28-2023 ambulatory Chente Conn Facility:[facility] Start: 11-29-2023 End: 11-29-2023 ambulatory Chente Conn Facility:[facility] Start: 10-29-2023 End: 10-29-2023 ambulatory Chente Conn Facility:[facility] Start: 09-30-2023 End: 10-01-2023 ambulatory Chente Conn Facility:[facility] Start: 09-15-2023 End: 09-15-2023 ambulatory Stefan Bri [facility] Start: 09-10-2023 End: 09-10-2023 ambulatory Chente Conn Facility:[facility] Start: 09-06-2023 End: 09-06-2023 ambulatory Torey Huffman Facility:[facility] Start: 06-14-2023 End: 06-14-[address] Chente Conn Work Phone: [facility] Work Phone: Start: 06-14-2023 End: 06-14-[address] Chente Conn Work Phone: [facility]-Laboratory, Specimen Work Phone: Start: 05-17-2023 End: 05-17-[address] Chente Conn Work Phone: [facility] Work Phone: Start: 05-17-2023 End: 05-17-[address] [facility] Start: 04-19-2023 End: 04-19-[address] Chente Conn Work Phone: [facility] Work Phone: Start: 04-19-2023 End: 04-19-[address] [facility] Work [facility] Start: 04-13-2023 End: 04-13-2023 Emergency department patient visit Dr. Chente Conn Work Phone: [facility]-Emergency Department Work Phone: Start: 03-25-2023 Non-patient / Non-visit Dr. Chente Conn Work Phone: [facility] Work Phone: Start: 03-25-2023 Non-patient / Non-visit Dr. Chente Conn Work Phone: [facility] Start: 03-25-2023 Dr. Chente canales Work Phone: [facility] Start: 03-24-2023 Non-patient / Non-visit Dr. Chente Conn Work Phone: [facility] Work Phone: Start: 03-24-2023 Dr. Chente canales Work Phone: [facility] Work Phone: Start: 03-24-2023 Non-patient / Non-visit Dr. Chente Conn Work Phone: [facility] Start: 03-24-2023 Dr. Chente canales Work Phone: [facility] Start: 03-23-2023 Non-patient / Non-visit Dr. Chente Conn Work Phone: [facility] Work Phone: Start: 03-23-2023 End: 03-25-2023 Evaluation and management of inpatient Dr. Chente Conn Work Phone: [facility]-Intensive Care Unit Work Phone: Start: 03-23-2023 End: 03-25-2023 Dr. Chen[facility] Start: 03-02-2023 End: 03-02-[address] Chente Conn Work Phone: [facility]-Pulmonary Medicine [facility] Work Phone: Start: 03-02-2023 End: 03-02-2023 Dr. Chente Conn Work Phone: [facility] Work Phone: Start: 03-01-2023 End: 03-01-[address] Chente Conn Work Phone: [facility] Work Phone: Start: 03-01-2023 End: 03-01-[address] Chen[facility] Work [facility]: Start: 03-01-2023 End: 03-01-2023 Dr. Chente Conn [facility] Work [facility]: Start: 02-03-2023 End: 02-03-[address] Chente Conn Work Phone: [facility] Work Phone: Start: 02-03-2023 End: 02-03-[address] Chen[facility] Work [facility] Start: 02-03-2023 End: 02-03-2023 Dr. Chente Conn [facility] Work [facility]: Start: 01-16-2023 End: 01-16-2023 Emergency department patient visit Dr. Chente Conn Work Phone: [facility]-Emergency Department Work Phone: Start: 01-16-2023 End: 01-16-2023 Dr. Chente Conn Work Phone: [facility]-Emergency Department Work Phone: Start: 01-04-2023 End: 01-04-[address] Chente Conn Work Phone: [facility]-Laboratory, Specimen Work Phone: Start: 01-04-2023 End: 01-04-2023 Dr. Chente Conn Work Phone: [facility]-Laboratory, Specimen Work Phone: Start: 12-13-2022 Non-patient / Non-visit Dr. Chente Conn Work Phone: [facility] Work Phone: Start: 12-13-2022 Dr. Chente canales Work Phone: [facility] Work Phone: Start: 12-12-2022 Non-patient / Non-visit Dr. Chente Conn Work Phone: [facility] Start: 12-12-2022 Dr. Chente canales Work Phone: [facility] Start: 12-12-2022 Non-patient / Non-visit Dr. Chente Conn Work Phone: [facility] Work Phone: Start: 12-12-2022 Dr. Chente canales Work Phone: [facility] Work Phone: Start: 12-11-2022 Non-patient / Non-visit Dr. Chente Conn Work Phone: [facility] Work Phone: Start: 12-11-2022 Dr. Chente canales Work Phone: [facility] Work Phone: Start: 12-11-2022 Non-patient / Non-visit Dr. Chente Conn Work Phone: [facility] Start: 12-11-2022 Dr. Chente canales Work Phone: [facility] Start: 12-10-2022 End: 12-13-2022 Evaluation and management of inpatient Dr. Chente Conn [facility] Work [facility] Start: 12-10-2022 End: 12-13-2022 Dr. Chente Conn [facility] Work [facility] Start: 12-07-2022 End: 12-07-2022 ambulatory Dr. Chente Conn Work Phone: [facility] Work Phone: Start: 12-07-2022 End: 12-07-[address] [facility] Work [facility]: Start: 12-07-2022 End: 12-07-2022 Dr. Chente Conn [facility] Work [facility]: Start: 11-12-2022 End: 11-12-[address] Chente Conn [facility] Work [facility]: Start: 11-05-2022 Non-patient / Non-visit Dr. Chente Conn Work Phone: [facility] Work Phone: Start: 11-04-2022 Non-patient / Non-visit Dr. Chente Conn Work Phone: [facility] Work Phone: Start: 11-03-2022 Non-patient / Non-visit Dr. Chente Conn Work Phone: [facility] Work Phone: Start: 11-02-2022 Non-patient / Non-visit Dr. Chente Conn Work Phone: [facility] Work Phone: Start: 11-01-2022 Non-patient / Non-visit Dr. Chente Conn Work Phone: [facility] Work Phone: Start: 10-31-2022 Non-patient / Non-visit Dr. Chente Conn Work Phone: [facility] Work Phone: Start: 10-30-2022 Non-patient / Non-visit Dr. Chente Conn Work Phone: [facility] Work Phone: Start: 10-29-2022 Non-patient / Non-visit Dr. Chente Conn Work Phone: [facility] Work Phone: Start: 10-28-2022 Non-patient / Non-visit Dr. Chente Conn Work Phone: [facility] Work Phone: Start: 10-27-2022 Non-patient / Non-visit Dr. Chente Conn Work Phone: [facility] Work Phone: Start: 10-27-2022 End: 11-05-2022 Evaluation and management of inpatient Dr. Chente Conn Work Phone: [facility]Int[facility] Work Phone: Start: 10-14-2022 End: 10-14-[address] Chente Conn Work Phone: [facility] Work Phone: Start: 10-14-2022 End: 10-14-[address] Chen[facility] Work [facility]: Start: 09-17-2022 End: 09-17-[address] Chente Conn Work Phone: [facility]-P[facility] Work Phone: Start: 09-14-2022 End: 09-14-[address] Chente Conn Work Phone: [facility] Work Phone: Start: 09-14-2022 End: 09-14-[address] Chen[facility] Conn [facility] Work [facility]: Start: 08-17-2022 End: 08-17-2022 ambulatory [facility] Work Phone: Start: 08-17-2022 End: 08-17-2022 [facility] Start: 07-22-2022 End: 07-22-2022 [facility] Work [facility]: Start: 06-30-2022 Telephone encounter [facility] Work Phone: Colorectal Surgery Comment on above: Stoma Consult Start: 06-22-2022 End: 06-23-2022 Emergency department patient visit Dr. Chente Conn Work Phone: [facility] Work Phone: Start: 06-22-2022 End: 06-23-2022 Dr. Chente Conn Work Phone: [facility]-Emergency Department Start: 06-15-2022 End: 06-16-2022 ambulatory CHENTE Emil ASHBURN Facility:[facility] Start: 06-15-2022 End: 06-15-2022 Nursing evaluation of patient and report [facility] Work Phone: Colorectal Surgery Comment on above: Attention to colosto my (HCC) (Primary Dx) Start: 06-12-2022 End: 06-12-2022 Emergency department patient visit Dr. Chente Conn Work Phone: [facility]Emer[facility] Start: 06-12-2022 End: 06-12-2022 Dr. Chente Conn Work Phone: [facility]Emer[facility] Start: 06-01-2022 End: 06-21-2022 [facility]charged [facility] Start: 06-01-[address] Chente Conn [facility] Start: 06-01-2022 End: 06-21-2022 Dr. Chente Conn [facility] Phone[facility] Start: 05-06-2022 End: 05-06-2022 ambulatory I MAURICIO LEAVITT Facility:[facility] Start: 05-06-2022 End: 05-06-2022 [facility] I Mauricio Leavitt MD Work Phone: Colorectal Surgery Comment on above: Functional disorder of stomach (Primary Dx) Start: 05-04-2022 End: 05-22-[address] Chente Conn Work Phone: [facility] Work Phone: Start: 05-04-2022 End: 05-22-[address] Chente Conn [facility] Start: 05-04-2022 End: 05-22-2022 Dr. Chente Conn [facility] Phone[facility] Start: 04-14-2022 Telephone encounter I Mauricio rothman MD Work Phone: Colorectal Surgery Comment on above: Patient Update; Radha ent Question Patient Update Start: 04-01-2022 Non-patient / Non-visit Dr. Chente Conn Work Phone: [facility] Start: 04-01-2022 Dr. Chente canales Work Phone: [facility] Start: 03-31-2022 Non-patient / Non-visit Dr. Chente Conn Work Phone: [facility] Start: 03-31-2022 Dr. Chente canales Work Phone: [facility] Start: 03-31-2022 Non-patient / Non-visit Dr. Chente Conn Work Phone: [facility] Start: 03-31-2022 Dr. Chente canales Work Phone: [facility] Start: 03-30-2022 Non-patient / Non-visit Dr. Chente Conn Work Phone: [facility] Start: 03-30-2022 Dr. Chente canales Work Phone: [facility] Start: 03-30-2022 Non-patient / Non-visit Dr. Chente Conn Work Phone: [facility] Start: 03-30-2022 Dr. Chente canales Work Phone: [facility] Start: 03-29-2022 Non-patient / Non-visit Dr. Chente Conn Work Phone: [facility] Start: 03-29-2022 Dr. Chente canales Work Phone: [facility] Start: 03-29-2022 Non-patient / Non-visit Dr. Chente Conn Work Phone: [facility] Start: 03-29-2022 Dr. Chente canales Work Phone: [facility] Start: 03-29-2022 Non-patient / Non-visit Dr. Chente Conn Work Phone: [facility] Start: 03-29-2022 Dr. Chente canales Work Phone: [facility] Start: 03-28-2022 Non-patient / Non-visit Dr. Chente Conn Work Phone: [facility] Start: 03-28-2022 Dr. Chente canales Work Phone: [facility] Start: 03-27-2022 Non-patient / Non-visit Dr. Chente Conn Work Phone: [facility] Start: 03-27-2022 Dr. Chente canales Work Phone: [facility] Start: 03-26-2022 Non-patient / Non-visit Dr. Chente Conn Work Phone: [facility] Start: 03-26-2022 Dr. Chente canales Work Phone: [facility] Start: 03-25-2022 Non-patient / Non-visit Dr. Chente Conn Work Phone: [facility] Start: 03-25-2022 Dr. Chente canales Work Phone: [facility] Start: 03-25-2022 Non-patient / Non-visit Dr. Chente Conn Work Phone: [facility] Start: 03-25-2022 Dr. Chente canales Work Phone: [facility] Start: 03-24-2022 Non-patient / Non-visit Dr. Chente Conn Work Phone: [facility] Start: 03-24-2022 End: 04-01-2022 Evaluation and management of inpatient Dr. Chente Conn [facility] Start: 03-24-2022 End: 04-01-2022 Dr. Chente Conn Work Phone: [facility] Start: 03-23-2022 End: 03-24-[address] Chente Conn Work Phone: [facility] Work Phone: Start: 03-23-2022 End: 03-24-[address] Chente Conn [facility] Start: 03-23-[address] Chente Conn [facility] Phone[facility] Start: 03-23-2022 End: 03-24-2022 Dr. Chente Conn [facility] Phone[facility] Start: 02-24-2022 End: 02-24-2022 Emergency department patient visit Dr. Chente Conn Work Phone: [facility] Start: 02-24-2022 End: 02-24-2022 Dr. Chente Conn Work Phone: [facility] Start: 02-06-2022 End: 02-21-[address] Chente Conn Work Phone: [facility] Work Phone: Start: 02-06-2022 End: 02-21-[address] Chente Conn [facility] Start: 02-06-2022 End: 02-21-2022 Dr. Chente Conn [facility] Phone[facility] Start: 01-06-2022 End: 01-06-[address] Chente Conn Work Phone: [facility] Start: 01-06-2022 End: 01-06-2022 Dr. Chente Conn Work Phone: [facility] Start: 01-05-2022 End: 01-21-[address] Chente Conn Work Phone: [facility] Work Phone: Start: 01-05-2022 End: 01-21-[address] Chente Conn Work Phone: [facility], Specimen Start: 01-05-2022 End: 01-21-2022 Dr. Chente Conn [facility] Start: 12-19-2021 End: 12-19-[address] Chente Conn [facility] Start: 12-19-2021 End: 12-19-2021 Dr. Chente Conn Work Phone: [facility] Start: 12-08-2021 End: 12-22-[address] Chente Conn Work Phone: [facility] Work Phone: Start: 12-08-2021 End: 12-22-[address] Chente Conn Work Phone: [facility], Specimen Start: 12-08-2021 End: 12-22-2021 Dr. Chente Conn Work Phone: [facility], Specimen Start: 12-05-2021 Non-patient / Non-visit Dr. Chente Conn Work Phone: [facility] Start: 12-05-2021 Dr. Chente canales Work Phone: [facility] Start: 12-04-2021 Non-patient / Non-visit Dr. Chente Conn Work Phone: [facility] Start: 12-04-2021 Dr. Chente canales Work Phone: [facility] Start: 12-03-2021 Non-patient / Non-visit Dr. Chente Conn Work Phone: [facility] Start: 12-03-2021 [facility] Start: 12-03-2021 Non-patient / Non-visit Dr. Chente Conn Work Phone: [facility] Start: 12-03-2021 Dr. Chente canales Work Phone: [facility] Start: 12-02-2021 Non-patient / Non-visit Dr. Chente Conn Work Phone: [facility] Start: 12-02-2021 Dr. Chente canales Work Phone: [facility] Start: 12-01-2021 Non-patient / Non-visit Dr. Chente Conn Work Phone: [facility] Start: 12-01-2021 Dr. Chente canales Work Phone: [facility] Start: 12-01-2021 Non-patient / Non-visit Dr. Chente Conn Work Phone: [facility] Start: 12-01-2021 Dr. Chente canales Work Phone: [facility] Start: 12-01-2021 End: 12-05-2021 Non-patient / Non-visit Dr. Chente Conn Work Phone: [facility] Start: 11-30-2021 End: 12-05-2021 Evaluation and management of inpatient Dr. Chente Conn [facility] Start: 11-30-2021 End: 12-05-2021 Dr. Chente Conn [facility] Start: 11-03-2021 End: 11-21-[address] Chente Conn [facility] Start: 09-11-2021 Non-patient / Non-visit Dr. Chente Conn Work Phone: [facility] Start: 09-11-2021 End: 09-11-[address] Chente Conn [facility] Start: 09-10-2021 End: 09-21-[address] Chente Conn [facility] Phone[facility] Start: 09-10-[address] Chente Conn [facility] Phone[facility] Start: 08-19-2021 End: 08-19-[address] Chente Conn Work Phone: [facility] Start: 08-12-2021 End: 08-12-[address] Chente Conn [facility] Phone[facility] Start: 08-08-2021 End: 08-08-[address] Chente Conn [facility] Phone[facility] Start: 07-16-2021 End: 07-16-[address] Chente Conn Work Phone: [facility] Start: 07-11-2021 End: 07-22-[address] Chente Conn [facility] Start: 06-11-2021 End: 06-21-[address] Chente Conn [facility] Start: 05-30-2021 End: 05-30-[address] Chente Conn Work Phone: [facility]-Cat Scan, [facility] Start: 05-20-2021 End: 05-20-[address] Chente Conn Work Phone: [facility] Start: 05-19-2021 End: 05-19-2021 Emergency department patient visit Dr. Chente Conn Work Phone: [facility]Emergency Department Start: 05-13-2021 End: 05-22-[address] Chente Conn [facility] Start: 04-28-2021 End: 04-28-[address] Chente Conn [facility] Start: 04-21-2021 End: 04-21-[address] Chente Conn [facility] Start: 04-15-2021 End: 04-15-[address] Chente Conn Work Phone: [facility]-Pulmonary Medicine [facility] Start: 03-25-2021 End: 04-21-[address] Chente Conn [facility] Phone[facility] Start: 02-24-2021 End: 03-24-[address] Chente Conn [facility] Start: 01-28-2021 End: 02-21-2021 Discharged Recurring [...] on above: Detection Limit = 3Performed at: [address] [id number] Director: Berry Gonzalez PhD, Phone: [phone] Start: 06-26-2024 Total iron binding capacity measurement [...] Phone: Start: 03-23-[address] Chente Conn Work Phone: Start: 03-23-2023 Plain chest X-ray [...] angiography of chest with contrast Dr. Chente oCnn Work Phone: Start: 11-30-2021 Plain chest X-ray [...] [Moles/volume] in Serum or Plasma [facility] Start: 06-26-2024 Prolactin measurement [facility] Start: 06-26-2024 Testosterone measurement [facility] Start: 04-13-2023 Venous catheter care management [facility] Start: 04-13-2023 End: 04-13-2023 [facility] Start: 04-13-2023 [facility] Start: 03-25-2023 Patient discharge [facility] Start: 03-24-2023 Referral to service [facility] Start: 03-24-2023 CBC W Auto Differential panel - Blood [facility] Start: 03-24-2023 [facility] Start: 03-23-2023 Following clinical pathway protocol [facility] Start: 03-23-2023 Assessment of risk of venous thromboembolism [facility] Start: 03-23-2023 Consultation [facility] Start: 03-23-2023 Consultation for treatment [facility] Start: 03-23-2023 Inhalation therapy procedure [facility] Start: 03-23-2023 Insertion of catheter into peripheral vein [facility] Start: 03-23-2023 Measuring intake and output [facility] Start: 03-23-2023 Oxygen therapy [facility] Start: 03-23-2023 Patient referral to dietitian [facility] Start: 03-23-2023 Providing care according to standard [facility] Start: 03-23-2023 Provision of activity privileges [facility] Start: 03-23-2023 Referral to service [facility] Start: 03-23-2023 Respiratory therapy [facility] Start: 03-23-2023 [facility] Start: 03-23-2023 Verification routine [facility] Start: 03-23-2023 Admission procedure [facility] Start: 03-23-2023 Bacteria identified in Blood by Culture Blood Culture [facility] Start: 03-23-2023 Bacteria identified in Urine by Culture [facility] Start: 03-23-2023 [facility] Start: 03-23-2023 End: 03-23-2023 Blood culture [facility] Start: 03-23-2023 End: 03-23-2023 [facility] Start: 01-16-2023 End: 01-16-2023 Blood culture [facility] Start: 01-16-2023 End: 01-16-2023 [facility] Start: 01-16-2023 Bacteria identified in Blood by Culture Blood Culture [facility] Start: 01-16-2023 Bacteria identified in Urine by Culture Urine Culture [facility] Start: 12-16-2022 Blood chemistry [facility] Start: 12-16-2022 Complete blood count [facility] Start: 12-15-2022 Blood chemistry [facility] Start: 12-15-2022 Complete blood count [facility] Start: 12-14-2022 Blood chemistry [facility] Start: 12-14-2022 Complete blood count [facility] Start: 12-13-2022 Patient discharge [facility] Start: 12-13-2022 Blood chemistry [facility] Start: 12-13-2022 Complete blood count [facility] Start: 12-12-2022 Blood chemistry [facility] Start: 12-12-2022 Complete blood count [facility] Start: 12-12-2022 [facility] Start: 12-11-2022 Referral to service [facility] Start: 12-10-2022 Ambulation without limitation [facility] Start: 12-10-2022 Assessment of risk of venous thromboembolism [facility] Start: 12-10-2022 Inhalation therapy procedure [facility] Start: 12-10-2022 Insertion of catheter into peripheral vein [facility] Start: 12-10-2022 Oxygen therapy [facility] Start: 12-10-2022 Providing care according to standard [facility] Start: 12-10-2022 Referral to service [facility] Start: 12-10-2022 [facility] Start: 12-10-2022 Following clinical pathway protocol [facility] Start: 12-10-2022 Verification routine [facility] Start: 12-10-2022 Admission procedure [facility] Start: 12-10-2022 Hospital admission, emergency, from emergency room, medical nature [facility] Start: 12-10-2022 [facility] Start: 12-10-2022 Patient referral to dietitian [facility] Start: 11-05-2022 Patient discharge [facility] Start: 11-04-2022 [facility] Start: 10-29-2022 [facility] Start: 10-28-2022 Respiratory therapy [facility] Start: 10-27-2022 End: 10-28-2022 [facility] Start: 10-27-2022 Care planning and problem solving actions [facility] Start: 10-27-2022 Respiratory therapy [facility] Start: 10-27-2022 Elevation of head of bed [facility] Start: 10-27-2022 Mouth care [facility] Start: 10-27-2022 Notification of physician [facility] Start: 10-27-2022 Tracheostomy care [facility] Start: 10-27-2022 Airway suction technique [facility] Start: 10-27-2022 Oxygen therapy [facility] Start: 10-27-2022 Assessment of risk of venous thromboembolism [facility] Start: 10-27-2022 Insertion of catheter into peripheral vein [facility] Start: 10-27-2022 Measuring intake and output [facility] Start: 10-27-2022 Physiotherapy of chest [facility] Start: 10-27-2022 Providing care according to standard [facility] Start: 10-27-2022 Vital signs measurements [facility] Start: 10-27-2022 Admission procedure [facility] Start: 10-27-2022 [facility] Start: 06-22-2022 End: 06-22-2022 Blood culture [facility] Start: 06-22-2022 End: 06-22-2022 [facility] Start: 06-12-2022 [facility] Start: 04-01-2022 Venous catheter care management [facility] Start: 04-01-2022 Patient discharge [facility] Start: 03-30-2022 Referral to ear, nose and throat service [facility] Start: 03-29-2022 Referral to general [facility] Start: 03-28-2022 [facility] Start: 03-27-2022 Care planning and problem solving actions [facility] [facility] Start: 03-27-2022 Referral to occupational therapist [facility] Start: 03-26-2022 Consultation [facility] Start: 03-25-2022 Referral to service [facility] Start: 03-25-2022 Airway suction technique [facility] Start: 03-25-2022 Oxygen therapy [facility] Start: 03-25-2022 End: 03-26-2022 [facility] Start: 03-25-2022 Care planning and problem solving actions [facility] Start: 03-25-2022 [facility] Start: 03-24-2022 [facility] Start: 03-24-2022 Following clinical pathway protocol [facility] Start: 03-24-2022 Assessment of risk of venous thromboembolism [facility] Start: 03-24-2022 Catheterization of vein [facility] Start: 03-24-2022 Consultation [facility] Start: 03-24-2022 Inhalation therapy procedure [facility] Start: 03-24-2022 Insertion of catheter into peripheral vein [facility] Start: 03-24-2022 Measuring intake and output [facility] Start: 03-24-2022 Patient referral to [facility] Start: 03-24-2022 Providing care according to standard [facility] Start: 03-24-2022 Referral to service [facility] Start: 03-24-2022 [facility] Start: 03-24-2022 Admission procedure [facility] Start: 03-24-2022 End: 03-24-2022 Blood culture [facility] Start: 03-24-2022 Patient referral to [facility] Start: 02-22-2022 DEPRESSION ASSESSMENT DEPRESSION ASSESSMENT [facility] Start: 12-05-2021 Patient discharge [facility] Start: 12-04-2021 [facility] Start: 12-03-2021 Referral to service [facility] Start: 12-03-2021 Consultation [facility] Start: 12-02-2021 Referral to general [facility] Start: 12-02-2021 Physiotherapy of chest [facility] Start: 12-01-2021 [facility] Start: 11-30-2021 Following clinical pathway protocol [facility] Start: 11-30-2021 Transfusion of blood product [facility] Start: 11-30-2021 Assessment of risk of venous thromboembolism [facility] Start: 11-30-2021 Consultation [facility] Start: 11-30-2021 Insertion of catheter into peripheral vein [facility] Start: 11-30-2021 Measuring intake and output [facility] Start: 11-30-2021 Oxygen therapy [facility] Start: 11-30-2021 Providing care according to standard [facility] Start: 11-30-2021 Referral to occupational therapist [facility] Start: 11-30-2021 Referral to service [facility] Start: 11-30-2021 [facility] Start: 11-30-2021 Verification routine [facility] Work Phone: Start: 11-30-2021 Admission procedure [facility] Start: 11-30-2021 CT angiography of chest with contrast CTA Chest W/WO Contrast [facility] Work Phone: Start: 11-30-2021 CTA Chest vessels WO and W contrast IV [facility] Work Phone: Start: 11-30-2021 End: 12-01-2021 [facility] Start: 10-23-2021 Influenza vaccination INFLUENZA (#1) [facility] Start: 10-15-2018 Hemoglobin A1c/Hemoglobin.total in Blood HBA1C [facility] Start: 08-27-2017 End: 08-27-2017 Appointment [facility] Work Phone: Start: 08-28-2016 End: 08-28-2016 Appointment Appointment [facility] Work Phone: Start: 08-28-2016 End: 08-28-2016 *BMP *BMP [facility] Work Phone: Start: 08-28-2016 End: 08-28-2016 BNP *Brain Natriuretic Peptide BNP [facility] Work Phone: Start: 08-28-2016 End: 08-28-2016 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 [facility] Work Phone: Start: 08-28-2016 End: 08-28-2016 Follow Up Appt 1 year Follow Up Appt 1 year [facility] Work Phone: Start: 05-27-2016 End: 05-28-2016 aPTT *PTT-Partial Thromboplastin Time [facility] Work Phone: Start: 05-27-2016 End: 05-28-2016 CBC W Auto Differential panel - Blood *CBC [facility] Work Phone: Start: 05-27-2016 End: 05-28-2016 Coagulation factor induced.INR assay in platelet poor plasma *PT/INR [facility] Work Phone: Start: 01-08-2016 End: 01-08-2016 Bacterica wound culture *Culture and Sensitivity, wound [facility] Work Phone: Start: 04-12-2012 Hepatitis B screening URINE ALBUMIN:CREATININE RATIO [facility] Start: 04-08-2012 Hepatitis B surface antibody level LDL CHOLESTEROL [facility] Start: 04-08-2012 PNEUMOCOCCAL (2 - PCV) PNEUMOCOCCAL (2 - PCV) [facility] Start: 2001 Urine microalbumin profile DTAP,TDAP,TD (1 - Tdap) [facility] Start: 02-01-2000 ANNUAL PCP TEAM CHRONIC DISEASE VISIT ANNUAL PCP TEAM CHRONIC DISEASE VISIT [facility] Start: 02-01-2000 HIV SCREENING HIV SCREENING [facility] Start: 02-01-1992 3 comp foot exam completed DIABETIC FOOT EXAM [facility] Start: 02-01-1992 Hepatitis C antibody, confirmatory test DILATED RETINAL EXAM [facility] Start: 1982 COVID-19 VACCINE (#1) COVID-19 VACCINE (#1) [facility] Start: 1982 HEPATITIS B (1 of 3 - 3-dose series) HEPATITIS B (1 of 3 - 3-dose series) [facility] 24 hour urine calciu m output measurement [facility] Alanine aminotransfe rase [Enzymatic activity/volume] in Serum or Plasma [facility] Alanine aminotransfe rase [Enzymatic activity/volume] in Serum or Plasma [facility] Albumin [Mass/volume ] in Serum or Plasma [facility] Albumin [Mass/volume ] in Serum or Plasma [facility] Alkaline phosphatase [Enzymatic activity/volume] in Serum or Plasma [facility] Alkaline phosphatase [Enzymatic activity/volume] in Serum or Plasma [facility] Anion gap measurement [facility] Anion gap measurement [facility] Anion gap measurement [facility] Anion gap measurement [facility] Anion gap measurement [facility] Anion gap measurement [facility] Anion gap measurement [facility] Aspartate aminotrans ferase [Enzymatic activity/volume] in Serum or Plasma [facility] Aspartate aminotrans ferase [Enzymatic activity/volume] in Serum or Plasma [facility] Bacteria identified in Blood by Culture Blood Culture [facility] Bacteria identified in Sputum by Respiratory culture [facility] Work Phone: Bacteria identified in Sputum by Respiratory culture [facility] Bilirubin, total measurement [facility] Bilirubin, total measurement [facility] BUN/Creatinine ratio [facility] BUN/Creatinine ratio [facility] BUN/Creatinine ratio [facility] BUN/Creatinine ratio [facility] BUN/Creatinine ratio [facility] BUN/Creatinine ratio [facility] BUN/Creatinine ratio [facility] Calcium [Mass/volume ] in Serum or Plasma [facility] Calcium [Mass/volume ] in Serum or Plasma [facility] Calcium [Mass/volume ] in Serum or Plasma [facility] Calcium [Mass/volume ] in Serum or Plasma [facility] Calcium [Mass/volume ] in Serum or Plasma [facility] Calcium [Mass/volume ] in Serum or Plasma [facility] Calcium [Mass/volume ] in Serum or Plasma [facility] Carbon dioxide, tota l [Moles/volume] in Serum or Plasma [facility] Carbon dioxide, tota l [Moles/volume] in Serum or Plasma [facility] Carbon dioxide, tota l [Moles/volume] in Serum or Plasma [facility] Carbon dioxide, tota l [Moles/volume] in Serum or Plasma [facility] Carbon dioxide, tota l [Moles/volume] in Serum or Plasma [facility] Carbon dioxide, tota l [Moles/volume] in Serum or Plasma [facility] Carbon dioxide, tota l [Moles/volume] in Serum or Plasma [facility] Chloride [Moles/volu me] in Serum or Plasma [facility] Chloride [Moles/volu me] in Serum or Plasma [facility] Chloride [Moles/volu me] in Serum or Plasma [facility] Chloride [Moles/volu me] in Serum or Plasma [facility] Chloride [Moles/volu me] in Serum or Plasma [facility] Chloride [Moles/volu me] in Serum or Plasma [facility] Chloride [Moles/volu me] in Serum or Plasma [facility] Creatinine [Moles/vo lume] in Serum or Plasma [facility] Creatinine [Moles/vo lume] in Serum or Plasma [facility] Creatinine [Moles/vo lume] in Serum or Plasma [facility] Creatinine [Moles/vo lume] in Serum or Plasma [facility] Creatinine [Moles/vo lume] in Serum or Plasma [facility] Creatinine [Moles/vo lume] in Serum or Plasma [facility] Creatinine [Moles/vo lume] in Serum or Plasma [facility] Erythrocyte mean corpuscular volume determination [facility] Glucose [Mass/volume ] in Serum or Plasma [facility] Glucose [Mass/volume ] in Serum or Plasma [facility] Glucose [Mass/volume ] in Serum or Plasma [facility] Glucose [Mass/volume ] in Serum or Plasma [facility] Glucose [Mass/volume ] in Serum or Plasma [facility] Glucose [Mass/volume ] in Serum or Plasma [facility] Glucose [Mass/volume ] in Serum or Plasma [facility] Hematocrit [Volume Fraction] of Blood [facility] Hematocrit [Volume Fraction] of Blood [facility] Hematocrit [Volume Fraction] of Blood [facility] Hematocrit [Volume Fraction] of Blood [facility] Hematocrit [Volume Fraction] of Blood [facility] Hematocrit [Volume Fraction] of Blood [facility] Hematocrit [Volume Fraction] of Blood [facility] Hemoglobin [Mass/vol ume] in Blood [facility] Hemoglobin [Mass/vol ume] in Blood [facility] Hemoglobin [Mass/vol ume] in Blood [facility] Hemoglobin [Mass/vol ume] in Blood [facility] Hemoglobin [Mass/vol ume] in Blood [facility] Hemoglobin [Mass/vol ume] in Blood [facility] Hemoglobin [Mass/vol ume] in Blood [facility] Insulin-like growth factor [Moles/volume] in Serum or Plasma [facility] Lactic acid measurement [facility] Leukocytes [#/volume ] in Blood [facility] Leukocytes [#/volume ] in Blood [facility] Leukocytes [#/volume ] in Blood [facility] Leukocytes [#/volume ] in Blood [facility] Leukocytes [#/volume ] in Blood [facility] Leukocytes [#/volume ] in Blood [facility] Leukocytes [#/volume ] in Blood [facility] Mean corpuscular hem oglobin concentration determination [facility] Mean corpuscular hem oglobin concentration determination [facility] Mean corpuscular hem oglobin concentration determination [facility] Mean corpuscular hem oglobin concentration determination [facility] Mean corpuscular hem oglobin concentration determination [facility] Mean corpuscular hem oglobin concentration determination [facility] Mean corpuscular hem oglobin concentration determination [facility] Mean corpuscular hem oglobin determination [facility] Mean corpuscular hem oglobin determination [facility] Mean corpuscular hem oglobin determination [facility] Mean corpuscular hem oglobin determination [facility] Mean corpuscular hem oglobin determination [facility] Mean corpuscular hem oglobin determination [facility] Mean corpuscular hem oglobin determination [facility] Measurement of renal function [facility] Measurement of renal function [facility] Measurement of renal function [facility] Measurement of renal function [facility] Measurement of renal function [facility] Measurement of renal function [facility] Measurement of renal function [facility] Microscopic observat ion [Identifier] in Unspecified specimen by Gram stain Gram Stain [facility] Work Phone: Neutrophil count [facility] Neutrophil count [facility] Neutrophil percent differential count [facility] Neutrophil percent differential count [facility] Patient Education [facility] Work Phone: Patient referral [facility] Work Phone: Platelets [#/volume] in Blood [facility] Platelets [#/volume] in Blood [facility] Platelets [#/volume] in Blood [facility] Platelets [#/volume] in Blood [facility] Platelets [#/volume] in Blood [facility] Platelets [#/volume] in Blood [facility] Platelets [#/volume] in Blood [facility] Potassium [Moles/vol ume] in Serum or Plasma [facility] Potassium [Moles/vol ume] in Serum or Plasma [facility] Potassium [Moles/vol ume] in Serum or Plasma [facility] Potassium [Moles/vol ume] in Serum or Plasma [facility] Potassium [Moles/vol ume] in Serum or Plasma [facility] Potassium [Moles/vol ume] in Serum or Plasma [facility] Potassium [Moles/vol ume] in Serum or Plasma [facility] Prolactin measurement [facility] Red blood cell count [facility] Red blood cell count [facility] Red blood cell count [facility] Red blood cell count [facility] Red blood cell count [facility] Red blood cell count [facility] Red blood cell count [facility] Red cell distributio n width determination [facility] Red cell distributio n width determination [facility] Red cell distributio n width determination [facility] Red cell distributio n width determination [facility] Red cell distributio n width determination [facility] Red cell distributio n width determination [facility] Red cell distributio n width determination [facility] Respiratory Culture Respiratory Culture [facility] Work Phone: Respiratory pathogen s DNA and RNA 12b panel - Unspecified specimen by YAYO with probe detection [facility] Serum testosterone measurement [facility] Sodium [Moles/volume ] in Serum or Plasma [facility] Sodium [Moles/volume ] in Serum or Plasma [facility] Sodium [Moles/volume ] in Serum or Plasma [facility] Sodium [Moles/volume ] in Serum or Plasma [facility] Sodium [Moles/volume ] in Serum or Plasma [facility] Sodium [Moles/volume ] in Serum or Plasma [facility] Sodium [Moles/volume ] in Serum or Plasma [facility] Testosterone Free [Mass/volume] in Serum or Plasma [facility] Testosterone measurement [facility] Total protein measurement [facility] Total protein measurement [facility] Urea nitrogen [Mass/ volume] in Serum or Plasma [facility] Urea nitrogen [Mass/ volume] in Serum or Plasma [facility] Urea nitrogen [Mass/ volume] in Serum or Plasma [facility] Urea nitrogen [Mass/ volume] in Serum or Plasma [facility] Urea nitrogen [Mass/ volume] in Serum or Plasma [facility] Urea nitrogen [Mass/ volume] in Serum or Plasma [facility] Urea nitrogen [Mass/ volume] in Serum or Plasma [facility] Work Phone: [facility] Immunizations Immunization Date Immunization Notes Care Provider [facility] 01-09-2021 influenza, injectabl e, quadrivalent, preservative free Dr. Chente Conn Work Phone: [facility] 01-09-2021 influenza, seasonal, injectable Dr. Chente Conn Work Phone: [facility] 04-03-2020 Covid (Moderna) Dr. Chente cooper Work Phone: [facility] 02-06-[address] Chente Conn Work Phone: [facility] 12-11-[address] Chente Conn Work Phone: [facility] 01-20-[address] Chente Conn Work Phone: [facility] 02-19-2017 influenza, injectabl e, quadrivalent, preservative free Dr. Chente Conn Work Phone: [facility] 02-19-2017 influenza, seasonal, injectable Dr. Chente Conn Work Phone: [facility] 12-23-2015 influenza, injectabl e, quadrivalent, preservative free Dr. Chente Conn Work Phone: [facility] 12-23-2015 influenza, seasonal, injectable Dr. Chente Conn Work Phone: [facility] 11-08-2014 influenza, injectabl e, quadrivalent, preservative free LELIA Leavitt MD Work Phone: [facility] 01-15-2014 influenza, injectabl e, quadrivalent, preservative free Dr. Chente Conn Work Phone: [facility] 01-15-2014 influenza, seasonal, injectable Dr. Chente Conn Work Phone: [facility] 12-14-2012 influenza virus vacc ine, unspecified formulation LELIA Leavitt MD Work Phone: [facility] 11-22-[address] Darwin Conn Work Phone: [facility] Work Phone: 11-22-2012 pneumococcal vaccine , unspecified formulation Dr. Chente Conn Work Phone: [facility] 04-08-2011 influenza virus vacc ine, unspecified formulation LELIA Leavitt MD Work Phone: [facility] 04-08-2011 pneumococcal polysaccharide vaccine, 23 valent LELIA Leavitt MD Work Phone: [facility] Payers Date Payer Category Payer Unknown [id number] 2023 Self-pay [id number] 2020 [id number] 2020 Medicare MEDICARE MEDICAR E A AND B [id number] 2020-Present [phone] [place] [address] Medicare [id number] 2018 Medicaid MEDICAID [facility] MEDICAID [id number] 2018-Present [phone] [address] [place] [address] Medicaid [id number] [id number] 2018 Unknown SAVANNAH MORSE PPO [id number] 2018-Present [phone] [address] [place] [address] PPO [id number] [id number] 2016 Medicaid [id number] 2016 Unknown [id number] Unknown [id number] 2.16.840.1.625662.3.579.2.462 Unknown [id number] 2.16.840.1.912899.3.579.2.462 Unknown [id number] 2.16.840.1.629278.3.579.2.462 Unknown [id number] 2.16.840.1.028091.3.579.2.462 Unknown [id number] 2.16.840.1.073267.3.579.2.462 Unknown [id number] 2.16.840.1.801996.3.579.2.462 Unknown [id number] 2.16.840.1.340426.3.579.2.462 Unknown [id number] 2.16.840.1.336821.3.579.2.462 Unknown [id number] 2.16.840.1.879518.3.579.2.462 Unknown [id number] 2.16.840.1.502128.3.579.2.462 Unknown [id number] 2.16.840.1.159701.3.579.2.462 Unknown [id number] 2.16.840.1.029107.3.579.2.462 Unknown [id number] 2.16.840.1.679907.3.579.2.462 Unknown [id number] 2.16.840.1.430437.3.579.2.462 Unknown [id number] 2.16.840.1.406167.3.579.2.462 Unknown [id number] 2.16.840.1.942570.3.579.2.462 Unknown [id number] 2.16.840.1.787907.3.579.2.462 Unknown [id number] 2.16.840.1.272805.3.579.2.462 Unknown [id number] 2.16.840.1.514751.3.579.2.462 Unknown [id number] 2.16.840.1.367806.3.579.2.462 Unknown [id number] 2.16840.1.201781.3.579.2.462 Unknown [id number] 2.16.840.1.294163.3.579.2.462 Unknown [id number] 2.16840.1.998152.3.579.2.462 Unknown [id number] 2.16.840.1.700356.3.579.2.462 Unknown [id number] 2.16.840.1.045098.3.579.2.462 Unknown [id number] 2.16.840.1.068932.3.579.2.462 Unknown [id number] 2.16.840.1.818234.3.579.2.462 Unknown [id number] 2.16.840.1.107379.3.579.2.462 Unknown [id number] 2.16.840.1.407751.3.579.2.462 Unknown [id number] 2.16.840.1.266601.3.579.2.462 Unknown [id number] 2.16.840.1.821928.3.579.2.462 Unknown [id number] 2.16.840.1.890523.3.579.2.462 Unknown [id number] 2.16.840.1.965427.3.579.2.462 Unknown [id number] 2.16.840.1.596208.3.579.2.462 Unknown [id number] 2.16.840.1.436783.3.579.2.462 Unknown [id number] 2.16.840.1.248235.3.579.2.462 Unknown [id number] 2.16.840.1.325969.3.579.2.462 Unknown [id number] 2.16.840.1.250186.3.579.2.462 Unknown [id number] 2.16.840.1.581295.3.579.2.462 Unknown [id number] 2.16840.1.492872.3.579.2.462 Unknown [id number] 2.16840.1.620232.3.579.2.462 Unknown [id number] 2.16840.1.243529.3.579.2.462 Unknown [id number] 2.16840.1.701916.3.579.2.462 Social History Date Type Detail Facility Start: 05-19-2021 End: 01-16-2023 Tobacco smoking status NHIS Unknown if ever smoked [facility] Start: 04-25-2020 None [facility] Start: 04-25-2020 With Family [facility] Start: 07-08-2019 Non-smoker [facility] Start: 1980 Sex Assigned At Male W [facility] Start: 2024 Tobacco smoking stat us DCIS Never smoked tobacco [facility] Start: 12-27-2019 Alcohol intake Not Asked [facility] Start: 1980 Sex Assigned At Not on file C [facility] Start: 05-17-2024 End: 05-23-2024 Sex Male (finding) [facility] Medical Equipment Procedure Code Equipment Code Equipment Origin al Text Equipment Identifier Dates Catheter Ascenda 4fr .5mm Silicone 114cm 86cm Intrathecal 2 Piece Connector - [id number] Start: 04-05-2018 Pump Int Thcl 40 ml Snchr 2 Drg - [id number] Start: 03-08-2012 Pump Synchromed Ii 87.5in Titanium Silicone 26in Intrathecal Freer - [id number] Start: 04-05-2018 Tube Shiley 10.8 mm 6.4mm 6 76mm Tracheostomy Cuff Low Pressure Fenestrate - [id number] Start: 04-20-2018 Goals Date Patient Goal Desired Activity /State Functional Status Date Assessment Result Facility 03-25-2023 Functional status Bedrest [facility] Work Phone: 03-25-2023 Functional status Fair [facility] Work Phone: 12-13-2022 Functional status Bedrest [facility] Work Phone: 12-11-2022 Functional status Bedrest [facility] Work Phone: 11-05-2022 Functional status Chair [facility] Work Phone: 04-01-2022 Functional status Bedrest [facility] Work Phone: 03-31-2022 Functional status None [facility] Work Phone: 12-05-2021 Functional status With Assist of 2 [facility] Work Phone: 12-04-2021 Functional status Bedrest [facility] Work Phone: 12-03-2021 Functional status None [facility] Work Phone: Mental Status Date Assessment Result Facility 03-25-2023 Cognitive function Passive [facility] Work Phone: 03-24-2023 Cognitive function Voice/Name [facility] Work Phone: 12-13-2022 Cognitive function Voice/Name [facility] Work Phone: 12-13-2022 Cognitive function Dependent [facility] Work Phone: 12-11-2022 Cognitive function Voice/Name [facility] Work Phone: 11-05-2022 Cognitive function Voice/Name [facility] Work Phone: 06-12-2022 Cognitive function Awake;Alert;Appropriat e [facility] Work Phone: 04-01-2022 Cognitive function Voice/Name [facility] Work Phone: 03-31-2022 Cognitive function Demonstrates ability to follow instructions/comprehend [facility] Work Phone: 12-05-2021 Cognitive function Voice/Name [facility] Work Phone: 12-03-2021 Cognitive function Remote Impaired [facility] Work Phone: Clinical Notes 07-15-2018 to 07-27-2024 Note Date & Type Note Facility 07-27-2024 Radiology Diagnostic study note [facility] Imaging Services [address] [place] [address] Knee 1 or 2 Views MR#: [id number] Acct: [id number] Name: KRISS MICHAEL Rep #: [id number] : 1980 M 44 From: Manuel Bernabe MD PCP: Dr. Chente Conn MD Status: RE G CLI Study:Knee 1 or 2 Views Date of Exam: Exam# [id number] Ordering Dr: Gabrielle Quinones MD PROCEDURE: KNEE [...] due to the nonstandard projections. Reading Location: [id number] CC: Dr. Chente Conn MD; Dr. Roddy Quinones MD ~ Computer Repair Instructor: Signed [facility] Work Phone: 06-15-2024 Evaluation note Diagnosis Onset Date Resolution Osteoporosis chronic June 15, 2024 1:47pm [facility] Work Phone: 1(358) 868-305702-11-2025 Evaluation note* Diagnosis Onset Date Resolution Status Admit Date Chronic respiratory failure chronic April 04, 2024 1:01pm [facility] Work Phone: 1(457) 413-614202-11-2025 Evaluation note* Diagnosis Onset Date Resolution Status Admit Date Chronic respiratory failure chronic April 04, 2024 1:01pm Osteoporosis chronic June 15, 2024 1:47pm [facility] Work Phone: 1(397) 102-770002-20-2024 Discharge summary Author Anthony Russell [facility] April 13, 2023 4:08pm Note Date/Time April 13, 2023 12:41pm [facility] Medical Records Department [address] [place] [address] Emergency Department Summary 04/13/23 MR#: [id number] Acct: [id number] Name: KRISS MICHAEL Rep #:[id number] : 1980 43 From: Anthony Russell MD PCP: Dr. Chente Conn MD Status:RE [...] Prior similar symptoms: Yes Recent Illness/Hospital[facility]: [facility] Medical History Acute dyspnea Anemia in [...] 44.2 L Lymph % (Auto) 43.5 H [place] % (Auto) 7.8 Eos % (Auto) 3.7 [...] your Primary Care Provider. Call [facility] ([phone]) or report to the closest Emergency Room. Call 911 if necessary. 04/13/23 1778 <Electronically signed by Anthony Russell MD> Cosigner Signature (if applicable): CC: Dr. Chente Conn MD ~ Signed [facility] Work Phone: 1(675) 386-221102-01-2024 Discharge summary Author [facility] March 25, 2023 10:43am Note Date/Time March 25, 2023 1 0:40am [facility] Medical Records Department [address] [place] [address] Instructions for Home/Discharge Instructions 03/25/23 1035 MR#: [id number] Acct: [id number] Name: KRISS MICHAEL Rep #:[id number] : 1980 43 From: Camacho Gonzalez DO [...] Cari Cavazos MD ~ Signed [facility] Work Phone: 1(291) 677-761902-01-2024 Progress note Author Jacek Monsalve [facility] March 25, 2023 9:12am Note Date/Time March 25, 2023 7 :06am [facility] Medical Records Department [address] [place] [address] Progress Note - Solution Specialist 03/25/2304 MR#: [id number] Acct: [id number] Name: KRISS MICHAEL Rep #:[id number] : 1980 43 From: Jacek Monsalve MD [...] neurologic status Charges/Coding Visit Charges Inpatient E&M: 27828 Subs Hosp L2 03/25/23 0912 <Electronically signed by Jacek Monsalve MD> Cosigner Signature (if applicable): CC: ~ Signed [facility] Work Phone: 1([phone]) 946-690701-31-2024 Progress note Author Camacho Gonzalez [facility] March 24, 2023 6:18pm Note Date/Time March 24, 2023 6 :15pm [facility] Medical Records Department [address] [place] [address] Progress Note - Hospitalist 03/24/23 1809 MR#: [id number] Acct: [id number] Name: KRISS MICHAEL Rep #:[id number] : 1980 43 From: Camacho Gonzalez DO [...] % (Auto) 62.2, Lymph % (Auto) 25.6, [place] % (Auto) 8.9, Eos % (Auto) 2.9, [...] 0.30, AST 14 L, ALT 25, Alkaline Glkhcaycbuz570 H, Total Protein 7.5, Albumin 3.1 L, [...] 35 minutes Charges/Coding Visit Charges Inpatient E&M: 71188 Subs Hosp L2 03/24/238 <Electronically signed by Camacho Gonzalez DO> Cosigner Signature (if applicable): CC: ~ Signed [facility] Work Phone: 1(453) 246-821801-31-2024 Consult note Author Jacek Monsalve [facility] March 24, 2023 2:48pm Note Date/Time March 24, 2023 8 :48am [facility] Medical Records Department [address] [place] [address] Consultation - Solution Specialist 03/24/23805 MR#: [id number] Acct: [id number] Name: KRISS MICHAEL Rep #:[id number] : 1980 43 From: Jacek Monsalve MD [...] outpatient office, who presents to [facility] on 03/23/2023 secondary to recurrent episodes of [...] and actively tracking people around the room. [facility] Medical History Acute dyspnea Anemia in [...] (Auto) 70.6 H, Lymph % (Auto) 21.7, [place] % (Auto) 5.1, Eos % (Auto) 2.0, [...] % (Auto) 62.2, Lymph % (Auto) 25.6, [place] % (Auto) 8.9, Eos % (Auto) 2.9, [...] 0.30, AST 14 L, ALT 25, Alkaline Igenkrfdpxl548 H, Total Protein 7.5, Albumin 3.1 L, Globulin 4.4 H, Albumin/Globulin Ratio 0.7 L Micro: Microbiology 03/23/23 12:55 Mucosa - Nose Respiratory Panel (PCR) - Final Imaging Radiology Impression Chest X-Ray 03/23/23 13:22 IMPRESSION: Limited inspiratory effort due to patient''s condition. There has been essentially no change prior study. Electronically Signed: aMtti Greer MD at 13:40 EST Reading Location ID and State: [facility] / ID , Service support , Charges/Coding Visit Charges Inpatient E&M: 91333 Init Hosp L2 03/24/23 1448 <Electronically signed [...] Dr. Cari Cavazos MD~ Signed [facility] Work Phone: 1([phone]) 190-511401-30-2024 Discharge summary Author Siddharth De La Rosa [facility] March 23, 2023 5:09pm Note Date/Time March 23, 2023 1 2:22pm [facility] Medical Records Department [address] [place] [address] Emergency Department Summary 03/23/23 MR#: [id number] Acct: [id number] Name: KRISS MICHAEL Rep #:[id number] : 1980 43 From: Siddharth De La [...] has not been around any sick persons. [facility] <REYNA Scott - Last Filed: 03/23/23 16:27> [facility] Medical History Acute dyspnea Anemia in [...] Oxygen Delivery Method Mechanical Ventilator Mechanical Ventilator [facility] <Dominic Méndez AIRBRUSH ARTIST-C - Last Filed: 03/23/23 16:27> [facility] Lab Data Labs: Laboratory Results - last 24 hr 03/23/23 03/23/23 12:35 13:23 WBC 13.0 H RBC 5.07 Hgb 13.1 Hct 42.2 MCV 83.2 MCH 25.8 L MCHC 31.0 L RDW Std Deviation 45.1 H RDW Coeff of Emilee 14.8 H Plt Count 229 MPV 10.1 Immature Gran % (Auto) 0.400 Neut % (Auto) 70.6 H Lymph % (Auto) 21.7 [place] % (Auto) 5.1 Eos % (Auto) 2.0 [...] Rosa MD - Last Filed: 03/23/23 17:09> [facility] Lab Data Labs: Laboratory Results - last 24 hr 03/23/23 03/23/23 12:35 13:23 WBC 13.0 H RBC 5.07 Hgb 13.1 Hct 42.2 MCV 83.2 MCH 25.8 L MCHC 31.0 L RDW Std Deviation 45.1 H RDW Coeff of Emilee 14.8 H Plt Count 229 MPV 10.1 Immature Gran % (Auto) 0.400 Neut % (Auto) 70.6 H Lymph % (Auto) 21.7 [place] % (Auto) 5.1 Eos % (Auto) 2.0 [...] min), Including time spent:, Discussing w/Patient &/or Family/Parliamentary Librarian, Discussing w/Consultants, Arranging Admission or Transfer and Performing Direct Patient Care at Bedside Discharge Plan Dx/Rx/DC Orders Clinical Impression: Acute hypoxemic respiratory failure, Aspiration pneumonia, Cerebral palsy, Acidosis, lactic Disposition Disposition: [facility] Care [facility] Discharge Date/Time: 03/23/23 16:46 What to do if you have Problems For any increased pain, shortness of breath, bleeding, nausea or vomiting, chest pain, or any unexpected problems, contact your Primary Care Provider. Call [facility] ([phone]) or report to the closest Emergency Room. Call 911 if necessary. 03/23/23 1701 <Electronically signed by Siddharth De La Rosa MD> Cosigner Signature (if applicable): 03/23/23 1627 <Electronically signed by Dominic HEBERTC> CC: Dr. Chente Conn MD ~ Signed [facility] Work Phone: 1([phone]) 667-888601-30-2024 History and physical note Author Lucia Dillard [facility] March 23, 2023 4:44pm Note Date/Time March 23, 2023 4 :37pm [facility] Medical Records Department [address] [place] [address] H&P Exam - Hospitalist 03/23/23 1633 MR#: [id number] Acct: [id number] Name: KRISS MICHAEL Rep #:[id number] : 1980 43 From: Lucia Dillard MD [...] and GERD who presented to [facility] 03/23/2023 due to concern for aspiration and [...] is presently not in any acute distress. [facility] Medical History Acute dyspnea Anemia in [...] (Auto) 70.6 H, Lymph % (Auto) 21.7, [place] % (Auto) 5.1, Eos % (Auto) 2.0, [...] documentation, 56Minutes Charges/Coding Visit Charges Inpatient E&M: 50942 Init Hosp L2 03/23/23 1644 <Electronically signed by Lucia Dillard MD> Cosigner Signature (if applicable): CC: Dr. Chente Conn MD; Dr. Lucia Dillard MD~ Signed [facility] Work Phone: 1([phone]) 269-206811-25-2023 Discharge summary Author Dalton Lester [facility] January 16, 2023 10:58pm Note Date/Time January 16, 2023 7:42pm [facility] Medical Records Department [address] [place] [address] Emergency Department Summary 01/16/23 MR#: [id number] Acct: [id number] Name: KRISS MICHAEL Rep #:[id number] : 1980 42 From: Amena OAKES PCP: [...] surgeon did not want to operate again. [facility] <CHAMP Merlos - Last Filed: 01/16/23 20:59> [facility] Medical History (Updated 01/16/23 @ 20:59 [...] <CHAMP Merlos - Last Filed: 01/16/23 20:59> [facility] Narrative Medical decision making narrative: History gathered [...] 75.2 H Lymph % (Auto) 16.8 L [place] % (Auto) 6.5 Eos % (Auto) 1.1 [...] Clarity Clear Urine pH 6.0 Ur Specific [place] 1.025 Urine Protein 30 H Urine Glucose [...] workup. This patient was seen with a PA/AIRBRUSH ARTIST Individually assessed they patient including history and physical. I have reviewed everything on the chart that is availableand agree with the documentation provided by the PA/AIRBRUSH ARTIST including discussion about the assessment, treatment plan, [...] 75.2 H Lymph % (Auto) 16.8 L [place] % (Auto) 6.5 Eos % (Auto) 1.1 [...] Clarity Clear Urine pH 6.0 Ur Specific [place] 1.025 Urine Protein 30 H Urine Glucose [...] your Primary Care Provider. Call [facility] ([phone]) or report to the closest Emergency Room. Call 911 if necessary. 01/16/232058 <Electronically signed by Amena OAKES> Cosigner Signature (if applicable): 01/16/232257 <Electronically signed by Dalton Lester DO> CC: Dr. Chente Conn MD ~ Signed [facility] Work Phone: 1([phone]) 934-562210-22-2023 Discharge summary Author [facility] December 13, 2022 6:10pm Note Date/Time December 13, 2022 1 2:47pm [facility] Medical Records Department [address] [place] [address] Discharge Summary 12/13/22 1247 MR#: [id number] Acct: [id number] Name: KRISS MICHAEL Rep #:[id number] : 1980 42 From: Donte adam DO PCP: Dr. Chente Conn MD Status:AD M IN Location: [place] [id number] Providers Date of Admission: 12/10/22 Date [...] seizure disorder who presented to [facility] ED on 12/10/2022 with several episodes of [...] Self Care Charges/Coding Visit Charges Inpatient E&M: 80223 Disch Hosp >30min 12/13/221809 <Electronically signed by Donte Abebe DO> Cosigner Signature (if applicable): CC: Dr. Donte Abebe DO; Dr. Chente Conn MD~ Signed [facility] Work Phone: 1(348) 472-124710-22-2023 Discharge summary Author Donte Abebe [facility] December 13, 2022 12:47pm Note Date/Time December 13, 2022 1 2:43pm [facility] Medical Records Department [address] [place] [address] Instructions for Home/Discharge Instructions 12/13/22 1242 MR#: [id number] Acct: [id number] Name: KRISS MICHAEL Rep #:[id number] : 1980 42 From: Donte adam DO [...] Chente Conn MD ~ Signed [facility] Work Phone: 1(720) 822-585510-22-2023 Progress note Author Stefan Gregory [facility] December 13, 2022 11:49am Note Date/Time December 13, 2022 1 1:48am [facility] Medical Records Department [address] [place] [address] Progress Note - GI 12/13/22 1147 MR#: [id number] Acct: [id number] Name: KRISS MICHAEL Rep #:[id number] : 1980 42 From: Stefan Gregory DO PCP: Dr. Chente Conn MD Status:AD M IN Location: [place] [address] Subjective Subjective No issues with his tube [...] current management. Charges/Coding Visit Charges Inpatient E&M: 75153 Subs Hosp L3 12/13/22 1149 <Electronically signed by Stefan Gregory DO> Cosigner Signature (if applicable): CC: ~ Signed [facility] Work Phone: 1([phone]) 323-365310-21-2023 Progress note Author Stefan Gregory [facility] December 12, 2022 5:05pm Note Date/Time December 12, 2022 5 :02pm [facility] Medical Records Department [address] [place] [address] Progress Note - GI 12/12/22 1702 MR#: [id number] Acct: [id number] Name: KRISS MICHAEL Rep #:[id number] : 1980 42 From: Stefan Gregory DO PCP: Dr. Chente Conn MD Status:AD M IN Location: [place] [address] Subjective Subjective Patient underwent an upper endoscopy [...] seems stable. Charges/Coding Visit Charges Inpatient E&M: 80410 Subs Hosp L3 12/12/22 1705 <Electronically signed by Stefan Gregory DO> Cosigner Signature (if applicable): CC: ~ Signed [facility] Work Phone: 1([phone]) 899-499010-21-2023 Progress note Author Donte Abebe [facility] December 12, 2022 2:28pm Note Date/Time December 12, 2022 2 :27pm [facility] Medical Records Department [address] [place] [address] Progress Note - Hospitalist 12/12/22 1423 MR#: [id number] Acct: [id number] Name: KRISS MICHAEL Rep #:[id number] : 1980 42 From: Donte adam DO PCP: Dr. Chente Conn MD Status:AD M [facility] Reason for Visit Reason for [...] seizure disorder who presented to [facility] ED on 12/10/2022 with several episodes of [...] 35 minutes. Charges/Coding Visit Charges Inpatient E&M: 27558 Subs Hosp L2 12/12/22 1428 <Electronically signed by Donte Abebe DO> Cosigner Signature (if applicable): CC: ~ Signed [facility] Work Phone: 1([phone]) 169-282210-20-2023 Progress note Author Donte [facility] December 11, 2022 5:31pm Note Date/Time December 11, 2022 5 :31pm [facility] Medical Records Department [address] [place] [address] Progress Note - Hospitalist 12/11/22 1723 MR#: [id number] Acct: [id number] Name: KRISS MICHAEL Rep #:[id number] : 1980 42 From: Donte adam DO PCP: Dr. Chente Conn MD Status:AD M IN Location: [place] [id number]- [id number] Reason for Visit Reason for Visit: [...] seizure disorder who presented to [facility] ED on 12/10/2022 with several episodes of [...] 35 minutes. Charges/Coding Visit Charges Inpatient E&M: 39872 Subs Hosp L2 12/11/22 1275 <Electronically signed by Donte Abebe DO> Cosigner Signature (if applicable): CC: ~ Signed [facility] Work Phone: 1(230) 892-461010-20-2023 Procedure [facility] 12-11-2022 Procedure [facility]10-19-2023 History and physical note Author Donte [facility] December 10, 2022 5:27pm Note Date/Time December 10, 2022 1 2:21pm [facility] Medical Records Department [address] [place] [address] H&P Exam - Hospitalist 12/10/22 1217 MR#: [id number] Acct: [id number] Name: KRISS MICHAEL Rep #:[id number] : 1980 42 From: Donte adam DO PCP: Dr. Chente Conn MD Status:AD M IN Location: [facility] SLO501- 1 HPI - General General Date of Admission: 12/10/22 HPI Narrative KRISS MICHAEL, is a 42 M who presents [facility] Medical History (Updated 12/10/22 @ 15:05 [...] (Auto) 72.2 H, Lymph % (Auto) 19.2, [place] % (Auto) 5.9, Eos % (Auto) 2.1, [...] seizure disorder who presented to [facility] ED on 12/10/2022 with several episodes of [...] 55 minutes. Charges/Coding Visit Charges Inpatient E&M: 52749 Init Hosp L2 12/10/22 1727 <Electronically signed by Donte Abebe DO> Cosigner Signature (if applicable): CC: Dr. Donte Abebe DO; Dr. Chente Conn MD~ Signed [facility] Work Phone: 1(903) 480-193310-19-2023 Discharge summary Author Miky Rahman [facility] December 10, 2022 4:28pm Note Date/Time December 10, 2022 1 0:15am [facility] Medical Records Department [address] [place] [address] Emergency Department Summary 12/10/22 MR#: [id number] Acct: [id number] Name: KRISS MICHAEL Rep #:[id number] : 1980 42 From: Miky Chiang PCP: Dr. Chente Conn MD Status:AD M IN Location: [place] [address] HPI HPI - GI History of Present [...] the summer with PCP. Specialists are at [facility] with surgery. However mother states has seen [...] gastroenterology, hospitalist This note was generated with Piki dictation software. It may contain incorrectwords, spelling, [...] (Auto) 72.2 H Lymph % (Auto) 19.2 Walworth % (Auto) 5.9 Eos % (Auto) 2.1 [...] of acute cardiopulmonary disease. Electronically Signed: Edis hDaliwal MD at 11:35 EDT , Discharge Plan Dx/Rx/DC Orders Clinical Impression: GI bleed, Cerebral palsy, Hematemesis Disposition Disposition: Acute Care Hospital [facility] Discharge Date/Time: 12/10/22 14:37 What to do if you have Problems For any increased pain, shortness of breath, bleeding, nausea or vomiting, chestpain, or any unexpected problems, contact your Primary Care Provider. Call [facility] ([phone]) or report to the closest Emergency Room. Call 911 if necessary. 12/10/22 4717 <Electronically signed by Miky Chiang> Cosigner Signature (if applicable): CC: Dr. Chente Conn MD ~ Signed [facility] Work Phone: [phone]) 741-262209-14-2023 Discharge summary Author Vanessa Roberts [facility] November 05, 2022 11:44am Note Date/Time November 05, 2022 11:38am [facility] Medical Records Department [address] [place] [address] Discharge Summary 11/05/22 1136 MR#: [id number] Acct: [id number] Name: KRISS MICHAEL Rep #:[id number] : 1980 42 From: Vanessa Roberts DO [...] father had surgery for esophageal cancer at [facility]. Overall he is remained incredibly [...] Self Care Charges/Coding Visit Charges Inpatient E&M: 41785 Disch Hosp 11/05/22 1140 <Electronically signed by Vanessa Roberts DO> Cosigner Signature (if applicable): CC: Dr. Chente Conn MD; Dr. Vanessa Roberts DO~ Signed [facility] Work Phone: 1([phone]) 548-545709-13-2023 Progress note Author Vanessa Roberts [facility] November 04, 2022 2:07pm Note Date/Time November 04, 2022 2:07pm [facility] Medical Records Department [address] [facility] [place] [address] Progress Note - Hospitalist 11/04/22 1405 MR#: [id number] Acct: [id number] Name: KRISS MICHAEL Rep #:[id number] : 1980 42 From: Vanessa Roberts DO [...] home tomorrow. Charges/Coding Visit Charges Inpatient E&M: 89452 Subs Hosp L1 11/04/22 1402 <Electronically signed by Vanessa Roberts DO> Cosigner Signature (if applicable): CC: ~ Signed [facility] Work Phone: [phone]) 994-234309-12-2023 Progress note Author Vanessa Roberts [facility] November 03, 2022 1:40pm Note Date/Time November 03, 2022 1:40pm [facility] Medical Records Department [address] [place] [address] Progress Note - Hospitalist 11/03/22 1338 MR#: [id number] Acct: [id number] Name: KRISS MICHAEL Rep #:[id number] : 1980 42 From: Vanessa Roberts DO [...] from surgery Charges/Coding Visit Charges Inpatient E&M: 55292 Subs Hosp L1 11/03/22 1340 <Electronically signed by Vanessa Roberts DO> Cosigner Signature (if applicable): CC: ~ Signed [facility] Work Phone: [phone]) [phone] Progress note Author Vanessa Roberts [facility] November 02, 2022 5:28pm Note Date/Time November 02, 2022 8:02am [facility] Medical Records Department [address] [place] [address] Progress Note - Hospitalist 11/02/22 0755 MR#: [id number] Acct: [id number] Name: KRISS MICHAEL Rep #:[id number] : 1980 42 From: Vanessa Roberts DO [...] is having surgeryfor esophageal cancer chair at [facility]. Overall he is remained incredibly [...] -Full code Charges/Coding Visit Charges Inpatient E&M: 67420 Subs Hosp L1 11/02/22 1728 <Electronically signed by Vanessa Roberts DO> Cosigner Signature (if applicable): CC: ~ Signed [facility] Work Phone: [phone]) 126-546309-10-2023 Progress note Author Michael Posadas [facility] November 01, 2022 9:04am Note Date/Time November 01, 2022 7:28am [facility] Medical Records Department [address] [place] [address] Progress Note - Hospitalist 11/01/22726 MR#: [id number] Acct: [id number] Name: KRISS MICHAEL Rep #:[id number] : 1980 42 From: Michael Posadas MD [...] documentation, 35Minutes Charges/Coding Visit Charges Inpatient E&M: 41864 Subs Hosp L2 11/01/22 0904 <Electronically signed by Michael Posadas MD> Cosigner Signature (if applicable): CC: ~ Signed [facility] Work Phone: [phone]) 504-135509-09-2023 Progress note Author Michael Posadas [facility] October 31, 2022 10:50am Note Date/Time October 31, 2022 7:35am [facility] Medical Records Department [address] [place] [address] Progress Note - Hospitalist 10/31/22 0732 MR#: [id number] Acct: [id number] Name: KRISS MICHAEL Rep #:[id number] : 1980 42 From: Michael Posadas MD [...] documentation, 35Minutes Charges/Coding Visit Charges Inpatient E&M: 83578 Subs Hosp L2 10/31/22 1050 <Electronically signed by Michael Posadas MD> Cosigner Signature (if applicable): CC: ~ Signed [facility] Work Phone: [phone]) 533-676709-08-2023 Progress note Author Cindy [facility] October 30, 2022 10:37am Note Date/Time October 30, 2022 10:37am [facility] Medical Records Department [address] [facility] [place] [address] Progress Note 10/30/22 1030 MR#: [id number] Acct: [id number] Name: KRISS MICHAEL Rep #:[id number] : 1980 42 From: Cindy Alexandre MD [...] respite care. Charges/Coding Visit Charges Inpatient E&M: 85839 Subs Hosp L2 10/30/22 1037 <Electronically signed by Cindy Alexandre MD> Cindy Alexandre MD Cosigner Signature (if applicable): CC: ~ Signed [facility] Work Phone: [phone]) [phone] Progress note Author Barry Young [facility] October 29, 2022 8:31am Note Date/Time October 29, 2022 8:31am [facility] Medical Records Department [address] [place] [address] Progress Note - Hospitalist 10/29/22827 MR#: [id number] Acct: [id number] Name: KRISS MICHAEL Rep #:[id number] : 1980 42 From: Barry stover MD [...] home instructions Charges/Coding Visit Charges Inpatient E&M: 12436 Subs Hosp L2 10/29/22 0831 <Electronically signed by Barry Young MD> Cosigner Signature (if applicable): CC: ~ Signed [facility] Work Phone: [phone]) 249-784109-06-2023 History and physical note Author [facility] October 28, 2022 7:30pm Note Date/Time October 27, 2022 2:40pm [facility] Medical Records Department [address] [place] [address] History & Physical Exam 10/27/22 1432 MR#: [id number] Acct: [id number] Name: KRISS MICHAEL Rep #:[id number] : 1980 42 From: Cindy Alexandre MD [...] father have surgery for esophageal cancer at [facility]. [facility] Medical History (Updated 10/28/22 @ 08:39 [...] respite care. Charges/Coding Visit Charges Inpatient E&M: 06585 Init Hosp L2 10/28/221929 <Electronically signed by Cindy Alexandre MD> Cosigner Signature (if applicable): CC: Dr. Chente Conn MD; Dr. Cindy Alexandre MD~ Signed [facility] Work Phone: [phone]) [phone] Progress note Author Barry Young [facility] October 28, 2022 8:40am Note Date/Time October 28, 2022 8:40am [facility] Medical Records Department [address] [place] [address] Progress Note - Hospitalist 10/28/2235 MR#: [id number] Acct: [id number] Name: KRISS MICHAEL Rep #:[id number] : 1980 42 From: Barry stover MD [...] home instructions Charges/Coding Visit Charges Inpatient E&M: 76171 Subs Hosp L2 10/28/22 0840 <Electronically signed by Barry Young MD> Cosigner Signature (if applicable): CC: ~ Signed [facility] Work Phone: [phone] Miscellaneous Notes* Telephone Encounter - Chichi Fowler RN - 06/30/2022 4:42 PM EDT [facility] nursing returned patient's mother Yue message [...] e-mail. Mother will give order numbers to [facility]. Also recommended can apply stomahesive powder on mucosa. Advised maybe irritation from mucosa rubbing on pouch d/t prolapse vs the stool. Mom agreeable. Time spent: 30 minutes Chichi Fowler RN, BSN, CWOCN * Telephone Encounter - Amber Monreal RN - 06/30/2022 3:53 PM EDT [phone] Pt's mother called. She would like to discuss pt's stoma prolapse. documented in [facility] De La Rosa [facility] June 22, 2022 8:24pm Note Date/Time June 22, 2022 6:47pm [facility] Medical Records Department [address] [place] [address] Emergency Department Summary 06/22/22 MR#: [id number] Acct: [id number] Name: KRISS MICHAEL Rep #:[id number] : 1980 42 From: Siddharth De La [...] not measuring this specifically obviously. No hematuria. [facility] Medical History Acute dyspnea Anemia in [...] % (Auto) 67.2 Lymph % (Auto) 21.5 Walworth % (Auto) 8.5 Eos % (Auto) 2.4 [...] Color Urine Clarity Urine pH Ur Specific [place] Urine Protein Urine Glucose (UA) Urine Ketones Urine Occult Blood Urine Nitrite Urine Bilirubin Urine Urobilinogen Ur Leukocyte Esterase Urine RBC Urine WBC Ur Squamous Epith Cells Urine Bacteria Urine Mucus 06/22/22 06/22/22 19:10 19:20 WBC RBC Hgb Hct MCV MCH MCHC RDW Std Deviation RDW Coeff of Emilee Plt Count MPV Immature Gran % (Auto) Neut % (Auto) Lymph % (Auto) Wal[place] % (Auto) Eos % (Auto) Baso % [...] Sl Cldy Urine pH 8.0 Ur Specific [place] 1.010 Urine Protein 30 H Urine Glucose [...] 19:23 EDT Reading Location ID and State: [address] [place] [address] Tel , Service support , Rhythm Strip [...] your Primary Care Provider. Call [facility] ([phone]) or report to the closest Emergency Room. Call 911 if necessary. 06/22/222023 <Electronically signed by Siddharth De La Rosa MD> Cosigner Signature (if applicable): CC: Dr. Chente Conn MD ~ Signed [facility] Work Phone: [phone]) 707-961704-24-2023 NoteHNO ID: [id number] Author: Cassie Cui RN Service: ? Author [...] Requested samples from [employer] for [employer]oplast SenSura [place] MAXI Drainable pouch with soft outlet #48160. Order form provided. Also discussed use of [...] 1 hour 15 minutes Cassie BAL, RN, [facility] History of Present illness Narrative* Cassie Cui [...] Uriah MAXI Drainable pouch with soft outlet #96250. Order form provided. Also discussed use of [...] effluent Current pouching system: Jazzmine Cohesive StomaWrap, [place] New Image flat flange with tape collar(cutting [...] RN - 06/15/2022 3:33 PM EDT The [address] [address] Patient: Kriss Michael Patient Address: [address] [place] [address] [place] [id number] Preferred Gender: male Date of : 1980 Type of Stoma: End Descending Colostomy Diagnosis: Constipation K59.0 OSTOMY SUPPLY ORDER FORM One Piece Ostomy Pouch Item Type: Coloplast Post-op pouch with a window #51434 30 day use - 2 Boxes Coloplast SenSura Uriah MAXI Drainable Pouch with Soft Outlet Transparent Cut-to-fit 4 #05782 30 dayuse - 1 Box Tonia Hollihesive #7706 30 day use - 2 Boxes Procare Abdominal binder (62-74) #[id number] 30 day use - 2 Binders OR Procare Abdominal binder (45-62) #[id number] 30 day use - 2 Binders Refills: 11 Attending Physician: Dr. Leavitt For immediate authorization, please contact the physician s office. [facility] Nurse: VALERIANO Peters, CWOCN SIGNATURE: Cassie Cui RN PATIENT NAME: Kriss Michael DATE: June 15, 2022 TIME: 3:34 PM CONTACT #: [phone] documented in this encounterVan [facility]ert [facility]04-24-2023 NoteHNO ID: [id number] Author: Cassie Cui RN Service: ? Author Type: Registered Nurse Type: Progress Notes Filed: 06/30/2022 4:35 PM Note Text: The [address] [address] Patient: Kriss Michael Patient Address: [address] [place] [address] [place] [id number] Preferred Gender: male Date of : 1980 Type of Stoma: End Descending Colostomy Diagnosis: Constipation K59.0 OSTOMY SUPPLY ORDER FORM Coloplast SenSura Uriah MAXI Drainable Pouch with Soft Outlet Transparent Cut-to-fit 4 #79765 30 day use - 1 Box Coloplast Bed Drainage Bag #71328 30 day use-2 bags Button Machine Operator #0777 30 day use 1 Xavi Luna #7700 30 day use - 2 Boxes Procare Abdominal binder (62-74) #[id number] 30 day use - 2 Binders OR Procare Abdominal binder (45-62) #[id number] 30 day use - 2 Binders Refills: 11 Attending Physician: Dr. Leavitt For immediate authorization, please contact the physician?s office. [facility] Nurse: VALERIANO Peters, CWOCN Addendum by: VALERIANO Virgen, CWOCN SIGNATURE: Cassie Cui RN PATIENT NAME: Kriss Michael DATE: June 15, 2022 TIME: 3:34 PM CONTACT #: [phone] [facility]-[address] Munoz [facility] June 12, 2022 12:31pm Note Date/Time June 12, 2022 10: 51am [facility] Medical Records Department [address] [place] [address] Emergency Department Summary 06/12/22 MR#: [id number] Acct: [id number] Name: KRISS MICHAEL Rep #:[id number] : 1980 42 From: Naveen Hidalgo PCP: [...] history of recent mission for aspiration pneumonia. [facility] Medical History Acute dyspnea Anemia in [...] % (Auto) 50.9 Lymph % (Auto) 35.9 [place] % (Auto) 8.1 Eos % (Auto) 3.3 [...] your Primary Care Provider. Call [facility] ([phone]) or report to the closest Emergency Room. Call 911 if necessary. 06/12/22 1231 <Electronically signed by Naveen Munoz DO> Cosigner Signature (if applicable): CC: Dr. Chente Conn MD ~ Signed [facility] Work Phone: [phone]) [phone] NoteHNO ID: [id number] Author: Yola Leavitt MD Service: ? Author [...] 2014. He has not been seen at [facility] since 2019 when he came [...] visit. Either the patient or their legal sales representative business courses has been informed of the risks and benefits of -- and alternatives to -- treatment through a remote evaluation and consents to proceed with the evaluation remotely. Risk of morbidity, mortality and/or complications of treatment plan: moderate I spent a total of 36 minutes on the date of the service which included preparing to see the patient and [id number] patient care.[facility]03-15-2023 History of Present illness Narrative* I [...] 2014. He has not been seen at [facility] since 2019 when he came [...] included preparing to see the patient and [id number]-peyc patient care. documented in this encounterVan [facility]ert [facility]02-21-2023 Miscellaneous Notes* Telephone Encounter - Geetha Walter [...] see what could be done about this,. [phone] Ashly (mom) documented in this encounterVan [facility]ert [facility] Hospital02-21-2023 Miscellaneous Notes* Telephone Encounter - Ebony Boateng - 04/14/2022 1:19 PM EST The patients mom stated that she can get into mychart. documented in this encounterVan [facility] De La Torre [facility] March 24, 2022 8:03pm Note Date/Time March 24, 2022 5 :37pm [facility] Medical Records Department [address] [place] [address] Emergency Department Summary 03/24/22 MR#: [id number] Acct: [id number] Name: KRISS MICHAEL Rep #:[id number] : 1980 42 From: Dario De La [...] similar symptoms: Yes Recent Illness/Hospitalization: Yes [facility] Medical History Acute dyspnea Anemia in [...] 79.9 H Lymph % (Auto) 13.1 L [place] % (Auto) 5.3 Eos % (Auto) 1.3 [...] results, treatment for sepsis), Discussing w/Patient &/or Family/Parliamentary Librarian, Discussing w/Consultants, Arranging Admission or Transfer and [...] MD [Primary Care Provider] - Disposition Disposition: [facility] What to do if you have Problems For any increased pain, shortness of breath, bleeding, nausea or vomiting, chestpain, or any unexpected problems, contact your Primary Care Provider. Call [facility] ([phone]) or report to the closest Emergency Room. Call 911 if necessary. 03/24/222002 <Electronically signed by Dario De La Torre MD> Cosigner Signature (if applicable): CC: Dr. Chente Conn MD ~ Signed [facility] Work Phone: [phone]) 427-445005-24-2019 History of Past illness Narrative* Problem Noted [...] latter does not explain HGB drop. - Alpine removed - BP stable - MAP goal [...] to goal rate - finishing reglan 10mg h4pvlcd for 24 hours today - monitor ostomy [...] of this encounter (statuses as of 04/14/2022) [facility] History of Past illness Narrative* [...] to goal rate - finishing reglan 10mg l3roykf for 24 hours today - monitor ostomy [...] of this encounter (statuses as of 04/14/2022) [facility] History of Past illness Narrative* [...] latter does not explain HGB drop. - Alpine removed - BP stable - MAP goal [...] to goal rate - finishing reglan 10mg s3pgxie for 24 hours today - monitor ostomy [...] of this encounter (statuses as of 05/08/2022) [facility] History of Past illness Narrative* [...] to goal rate - finishing reglan 10mg v3dzjmh for 24 hours today - monitor ostomy [...] of this encounter (statuses as of 06/16/2022) [facility] History of Past illness Narrative* [...] on mediport despite rosenberg needle exchange IR IVC notified on 04/21 with recommendation of cathflo [...] to goal rate - finishing reglan 10mg k6rthts for 24 hours today - monitor ostomy [...] of this encounter (statuses as of 07/01/2022) [facility]* Diagnosis Onset Date Resolution Status Chronic respiratory failure chronic [facility] Work Phone: evaluation note* Diagnosis Onset Date Resolution Status Chronic respiratory failure chronic Nonrheumatic mitral valve prolapse [facility] Work Phone: Evaluation note* Diagnosis Onset Date Resolution Status Nonrheumatic mitral valve prolapse [facility] Work Phone: Evaluation note* Diagnosis Onset Date Resolution Status Nonrheumatic mitral valve prolapse chronic Chronic respiratory failure [facility] Work Phone: Evaluation note* Diagnosis Onset Date Resolution Status Chronic respiratory failure chronic Acute dyspnea acute Cyanosis acute Hypoxia acute Cerebral palsy [facility] Work Phone: Evaluation note* Diagnosis Onset Date Resolution Status Chronic respiratory failure chronic Acute dyspnea acute Colostomy prolapse acute Cyanosis acute Hypoxia acute Pseudomonas pneumonia acute Cerebral palsy chronic Chronic respiratory failure [facility] Work Phone: Evaluation note* Diagnosis Onset Date Resolution Status Acute dyspnea acute Colostomy prolapse acute Cyanosis acute Hypoxia acute Pseudomonas pneumonia acute Cerebral palsy chronic Chronic respiratory failure chronic Pseudomonas pneumonia acute Chronic respiratory failure [facility] Work Phone: Evaluation note* Diagnosis Onset Date Resolution Status Cerebral palsy chronic Chronic respiratory failure chronic Acute dyspnea resolved Cyanosis resolved Hypoxia resolved Chronic respiratory failure chronic Chronic respiratory failure [facility] Work Phone: Evaluation note* Diagnosis Onset Date Resolution Status Cerebral palsy chronic Chronic respiratory failure chronic Acute dyspnea resolved Cyanosis resolved Hypoxia resolved Chronic respiratory failure chronic Chronic respiratory failure chronic Acidosis, lactic acute Aspiration into airway acute Hyperpyrexia acute Sepsis acute Sinus tachycardia acute Cerebral palsy chronic Chronic respiratory failure with hypoxia chronic [facility] Work Phone: Evaluation note* Diagnosis Functional disorder of stomach- Primary Unspecified functional disorder of stomach documented in this encounter [facility]* Diagnosis Onset Date Resolution Status Acidosis, lactic resolved Aspiration into airway resol alan Hyperpyrexia resolved Sepsis resolved Sinus tachycardia resolved [facility] Work Phone: Evaluation note* Diagnosis 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 Attention to colostomy documented in this encounter [facility] HospitalEvaluation noteNo assessment information availableWMercy [facility] Work Phone: Evaluation note* Diagnosis Onset Date Resolution Status Chronic respiratory failure with hypoxia chronic [facility] Work Phone: Evaluation note* Diagnosis Onset Date Resolution Status Cerebral palsy acute GI bleed resolved Hematemesis acute [facility] Work Phone: Evaluation note* Diagnosis Onset Date Resolution Status GI bleed resolved Hematemesis resolved [facility] Work Phone: Evaluation note* Diagnosis Onset Date Resolution Status Cerebral palsy chronic GI bleed resolved Hematemesis resolved Cerebral palsy chronic Chronic respiratory failure chronic [facility] Work Phone: Evaluation note* Diagnosis Onset Date Resolution Status Cerebral palsy chronic GI bleed resolved Hematemesis resolved Cerebral palsy chronic Chronic respiratory failure chronic Acidosis, lactic acute Acute hypoxemic respiratory failure acute Aspiration pneumonia acute Cerebral palsy chronic [facility] Work Phone: Evaluation note* Diagnosis Onset Date Resolution Status Cerebral palsy chronic GI bleed resolved Hematemesis resolved Cerebral palsy chronic Chronic respiratory failure chronic Acidosis, lactic acute Acute hypoxemic respiratory failure acute Aspiration pneumonia acute Emesis, persistent acute Cerebral palsy chronic Chronic respiratory failure chronic [facility] Work Phone: Evaluation note* Diagnosis Onset Date Resolution Status Cerebral palsy chronic Chronic respiratory failure chronic Cerebral palsy chronic Chronic respiratory failure chronic Acidosis, lactic resolved Acute hypoxemic respiratory failure resolved Emesis, persistent resolved [facility] Work Phone: History and physical note Author Lucia Dillard [facility] March 23, 2023 4:44pm Note Date/Time March 23, 2023 4 :37pm [facility] Medical Records Department [address] [place] [address] H&P Exam - Hospitalist 03/23/23 1633 MR#: [id number] Acct: [id number] Name: KRISS MICHAEL Rep #:[id number] : 1980 43 From: Lucia Dillard MD [...] and GERD who presented to [facility] 03/23/2023 due to concern for aspiration and [...] is presently not in any acute distress. [facility] Medical History Acute dyspnea Anemia in [...] (Auto) 70.6 H, Lymph % (Auto) 21.7, [place] % (Auto) 5.1, Eos % (Auto) 2.0, [...] documentation, 56Minutes Charges/Coding Visit Charges Inpatient E&M: 57354 Init Hosp L2 03/23/23 1644 <Electronically signed by Lucia Dillard MD> Cosigner Signature (if applicable): CC: Dr. Chente Conn MD; Dr. Lucia Dillard MD~ Signed [facility] Work Phone: Hospital Discharge instructions Additional Instructions Please return if you notice any changes to the patient's oxygenation. Please follow with his primary care physicians as well as specialist for outpatient evaluation and further treatment.[facility] Work Phone: Hospital Discharge instructions Additional Instructions Continue your current medications as prescribed. Ativan as needed for anxiety. Follow-up with your doctor as needed or return if worse. His labs today and CAT scan were unremarkable. There is no signs of any blood clots. No signs of any pneumonia. [facility] Work Phone: Reason for referral (narrative)No reason for referral information available[facility] Work Phone: Chief Complaint and Reason [...] No May 19, 2021 9:15pm Power of Party Chief No May 19 9:15pm Advance Directive Response Recorded Date/ Time Advance Directives No March 12, 2016 10:51am Living Will No November 30 11:11am Power of Party Chief No November 30 11:11am Advance Directive Response Recorded Date/ Time Advance Directives No March 12, 2016 10:51am Living Will No November 30 3:13pm Power of Party Chief No November 30 3:13pm Advance Directive Response Recorded Date/ Time Advance Directives No March 12, 2016 9:51am Living Will No November 30 2:13pm Power of Party Chief No November 30 2:13pm Advance Directive Response Recorded Date/ Time Name of Medical Power of Party Chief PT MOM February 24, 2022 4:16pm Advance Directives No March 12, 2016 9:51am Living Will No February 24 4:16pm Power of Party Chief Yes February 24, 2 023 4:16pm Advance Directive Response Recorded Date/ Time Name of Medical Power of Party Chief PT MOM February 24, 2022 4:16pm Name of Medical Power of Party Chief parents Miky Pelaez March 24, 2022 5:11pm Advance Directives No March 12, 2016 9:51am Living Will No March 24 5:11pm Power of Party Chief Yes March 24, 2022 5:11pm Advance Directive Response Recorded Date/ Time Name of Medical Power of Party Chief PT MOM February 24, 2022 4:16pm Name of Medical Power of Party Chief parents Miky viera nd Benigno March 24, 2022 5:11pm Advance Directives No March 12, 2016 9:51am Living Will No March 24 9:35pm Power of Party Chief No March 24, 2022 9:35pm Latest Code [...] Date/ Time Name of Medical Power of Party Chief PT MOM February 24, 2022 5:16pm Name of Medical Power of Party Chief parents Miky Pelaez March 24, 2022 6:11pm Advance Directives No March 12, 2016 10:51am Living Will No March 24 10:35pm Power of Party Chief No March 24, 2022 10:35pm Advance Directive Response Recorded Date/ Time Name of Medical Power of Party Chief PT MOM February 24, 2022 5:16pm Name of Medical Power of Party Chief parents Miky Pelaez March 24, 2022 6:11pm Advance Directives No March 12, 2016 10:51am Living Will No June 12, 2022 10:42am Power of Party Chief No June 12 10:42am Advance Directive Response Recorded Date/ Time Name of Medical Power of Party Chief PT MOM February 24, 2022 5:16pm Name of Medical Power of Party Chief parents Miky Pelaez March 24, 2022 6:11pm Name of Medical Power of Party Chief MOTHER June 22, 2022 6:28pm Advance Directives No March 12, 2016 10:51am Living Will No June 22, 2022 6: 28pm Power of Party Chief Yes June 22, 2022 6:28pm Advance Directive Response Recorded Date/ Time Name of Medical Power of Party Chief MOTHER June 22, 2022 6:28pm Advance Directives No March 12, 2016 10:51am Living Will No June 22, 2022 6: 28pm Power of Party Chief Yes June 22, 2022 6:28pm Advance Directive Response Recorded Date/ Time Name of Medical Power of Party Chief Matteo & Benigno S prosty October 27, 2022 5:26pm Advance Directives No March 12, 2016 10:51am Living Will No October 27, 023 5:26pm Power of Party Chief Yes October 27, 2022 5:26pm Advance Directive Response Recorded Date/ Time Name of Medical Power of Party Chief Matteo & Benigno S prosty October 27, 2022 5:26pm Advance Directives No March 12, 2016 10:51am Living Will No December 10 9:56am Power of Party Chief No December 10, 2022 9:56am Advance Directive Response Recorded Date/ Time Name of Medical Power of Party Chief Matteo & Benigno S prosty October 27, 2022 5:26pm Advance Directives No March 12, 2016 10:51am Living Will No December 10 2:53pm Power of Party Chief No December 10, 2022 2:53pm Advance Directive Response Recorded Date/ Time Advance Directives No March 12, 2016 9:51am Living Will No January 16, 023 7:25pm Power of Party Chief No January 16, 2023 7:25pm Name of Medical Power of Party Chief Matteo & Benigno S prosty October 27, 2022 4:26pm Advance Directive Response Recorded Date/ Time Name of Medical Power of Party Chief Mother March 23, 2023 12:16pm Advance Directives No March 12, 2016 9:51am Living Will No Kiah 30th, 20 24 12:16pm Power of Party Chief Yes March 23, 2023 12:16pm Advance Directive Response Recorded Date/ Time Name of Medical Power of Party Chief Mother March 23, 2023 5:05pm Advance Directives No March 12, 2016 9:51am Living Will No March 23 5:05pm Power of Party Chief Yes March 23, 2023 5:05pm Advance Directive Response Recorded Date/ Time Name of Medical Power of Party Chief Mother March 23, 2023 5:05pm Name of Medical Power of Party Chief parents April 13, 2023 12:23pm Advance Directives No March 12, 2016 9:51am Living Will Yes April 13 12:23pm Power of Party Chief Yes April 13, 2023 12:23pm Advance Directive Response Recorded Date/ Time Name of Medical Power of Party Chief Mother March 23, 2023 6:05pm Name of Medical Power of Party Chief parents April 13, 2023 1:23pm Advance Directives No March 12, 2016 10:51am Living Will Yes April 13 1:23pm Power of Party Chief Yes April 13, 2023 1:23pm Advance Directive Response Recorded Date/ Time Living Will Yes April 13 1:23pm Do you have a Healthcare Power of Party Chief? Yes April 13, 2023 1:23pm Living Will No January 30 5:12pm Do you have a Healthcare Power of Party Chief? No 2024 5:12pm Advance Directives No March 12, 2016 10:51am Advance Directive Response Recorded Date/ Time Living Will Yes April 13 1:23pm Do you have a Healthcare Power of Party Chief? Yes April 13, 2023 1:23pm Advance Directives [...] Provider, Referr ing Provider Active Valarie Kee AIRBRUSH ARTIST, AIRBRUSH ARTIST-C Attending Provider Active Team Status: Active Member [...] Tolentino MD Other Provider Active Valarie Kee AIRBRUSH ARTIST, AIRBRUSH ARTIST-C Other Provider Active Dr. Lucia Dillard MD [...] Tolentino MD Other Provider Active Valarie Kee AIRBRUSH ARTIST, AIRBRUSH ARTIST-C Other Provider Active Dr. Lucia Dillard MD [...] Tolentino MD Other Provider Active Valarie Kee AIRBRUSH ARTIST, AIRBRUSH ARTIST-C Other Provider Active Dr. Lucia Dillard MD Other Provider Active Dr. iFona Echavarria MD Other Provider Active Dr. Luis [...] Tolentino MD Other Provider Active Valarie Kee AIRBRUSH ARTIST, AIRBRUSH ARTIST-C Other Provider Active Dr. Lucia Dillard MD [...] MD Other Provider Active Valarie Kee NP, AIRBRUSH ARTIST-C Other Provider Active Dr. Lucia Dillard MD Other Provider Active Dr. Fioan Echavarria MD Other Provider Active Dr. Luis [...] MD Other Provider Active Valarie Kee NP, AIRBRUSH ARTIST-C Other Provider Active Dr. Lucia Dillard MD [...] Tolentino MD Other Provider Active Valarie Kee AIRBRUSH ARTIST, AIRBRUSH ARTIST-C Other Provider Active Dr. Lucia Dillard MD [...] Tolentino MD Other Provider Active Valarie Kee AIRBRUSH ARTIST, AIRBRUSH ARTIST-C Other Provider Active Dr. Fiona Echavarria MD [...] Tolentino MD Other Provider Active Valarie Kee AIRBRUSH ARTIST, AIRBRUSH ARTIST-C Other Provider Active Dr. Fiona Echavarria MD [...] Tolentino MD Other Provider Active Valarie Kee AIRBRUSH ARTIST, AIRBRUSH ARTIST-C Other Provider Active Team Status: Inactive Member Role Status Dates Dr. Chente Conn MD Primary Care Provider Active Dr. Maury Waite MD Attending Provider, Referring Pro vider Active Team Status: Active Member Role Status Dates Dr. Chenet Conn MD Primary Care Provider Active Dr. Dario De La Torre MD Emergency Provider Active Dr. Fiona Echavarria MD Admit Provider, Attending Provider Active Dr. Jacek Monsalve MD Other Provider Active Dr. Yovanny Moreira , DO Other Provider Active Dr. Armando Plaza MD Other Provider Active Dr. John Tolentino MD Other Provider Active Valarie Kee AIRBRUSH ARTIST, AIRBRUSH ARTIST-C Other Provider Active Residential Carpet Installer Relationship Specialty Start Date End Date Chente Perkins MD [address] [facility] [address] PCP - General 06/03/00 [facility] Community Resource 05/19/18 Residential Carpet Installer Relationship Specialty Start Date End Date Chente Perkins MD [address] [place] [address] PCP - General 06/03/00 [facility] Community Resource 05/19/18 Residential Carpet Installer Relationship Specialty Start Date End Date Chente Perkins MD [address] [place] [address] PCP - General 06/03/00 [facility] Community Resource 05/19/18 Team Status: Active [...] Tolentino MD Other Provider Active Valarie Kee AIRBRUSH ARTIST, AIRBRUSH ARTIST-C Other Provider Active Dr. Lucia Dillard MD [...] Tolentino MD Other Provider Active Valarie Kee AIRBRUSH ARTIST, AIRBRUSH ARTIST-C Other Provider Active Dr. Lucia Dillard MD [...] Tolentino MD Other Provider Active Valarie Kee AIRBRUSH ARTIST, AIRBRUSH ARTIST-C Other Provider Active Dr. Lucia Dillard MD [...] Tolentino MD Other Provider Active Valarie Kee AIRBRUSH ARTIST, AIRBRUSH ARTIST-C Other Provider Active Dr. Lucia Dillard MD [...] Tolentino MD Other Provider Active Valarie Kee AIRBRUSH ARTIST, AIRBRUSH ARTIST-C Other Provider Active Dr. Lucia Dillard MD [...] Tolentino MD Other Provider Active Valarie Kee AIRBRUSH ARTIST, AIRBRUSH ARTIST-C Other Provider Active Dr. Lucia Dillard MD [...] MD Other Provider Active Valarie Kee NP, AIRBRUSH ARTIST-C Other Provider Active Dr. Lucia Dillard MD [...] MD Other Provider Active Valarie Kee NP, AIRBRUSH ARTIST-C Other Provider Active Dr. Lucia Dillard MD Other Provider Active Dr. Robetro Hathaway MD Other Provider Active Dr. Luis [...] MD Other Provider Active Valarie Kee NP, AIRBRUSH ARTIST-C Other Provider Active Dr. Roberto Hathaway MD [...] Tolentino MD Other Provider Active Valarie Kee AIRBRUSH ARTIST, AIRBRUSH ARTIST-C Other Provider Active Dr. Roberto Hathaway MD [...] MD Other Provider Active Valarie Kee NP, AIRBRUSH ARTIST-C Other Provider Active Dr. Roberto Hathaway MD [...] Tolentino MD Other Provider Active Valarie Kee AIRBRUSH ARTIST, AIRBRUSH ARTIST-C Other Provider Active Dr. Roberto Hathaway MD [...] DO Referring Provider, Emergency P zulema Active Residential Carpet Installer Relationship Specialty Start Date End Date Chente Perkins MD [address] [place] [id number] PCP - General 06/03/00 [facility] Community [facility] 05/19/18 Team Status: Inactive Member Role [...] Torey Huffman MD Primary Care Provider, Attending [facility] Active Team Status: Active Member Role [...] 2024 End: April 04, 2024 Amber Dior AIRBRUSH ARTIST-C Attending Provider Active Start: April 04, 2024 [...] 2024 End: May 09, 2024 Valarie Kee AIRBRUSH ARTIST, AIRBRUSH ARTIST-C Attending Provider Active Start: May 09, 2024 End: May 09, 2024 Valarie Kee AIRBRUSH ARTIST, AIRBRUSH ARTIST-C Referring Provider Active Start: May 09, 2024 [...] 01, 2024 End: May 22, 2024 Dr. hCente Conn MD Referring Provider Active Start: May 01, 2024 End: May 22, 2024 Team Status: Inactive Member Role/Relationship Status Dates Dr. hCente Conn MD Primary Care Provider Active Start: May 09, 2024 End: May 09, 2024 Valarie Kee AIRBRUSH ARTIST, AIRBRUSH ARTIST-C Attending Provider Active Start: May 09, 2024 End: May 09, 2024 Valarie Kee AIRBRUSH ARTIST, AIRBRUSH ARTIST-C Referring Provider Active Start: May 09, 2024 [...] 2024 End: May 09, 2024 Valarie Kee AIRBRUSH ARTIST, AIRBRUSH ARTIST-C Attending Provider Active Start: May 09, 2024 End: May 09, 2024 Valarie Kee AIRBRUSH ARTIST, AIRBRUSH ARTIST-C Referring Provider Active Start: May 09, 2024 [...] or prosecute any alcohol or drug abuse patient.[facility] the event this information is protected by the Federal Confidentiality of Alcohol and Drug Abuse Patient Records regulations: The Federal rules restrict any use of the information to criminally investigate or prosecute any alcohol or drug abuse patient.[facility] the event this information is protected by the Federal Confidentiality of Alcohol and Drug Abuse Patient Records regulations: The Federal rules restrict any use of the information to criminally investigate or prosecute any alcohol or drug abuse patient.[facility] the event this information is protected by the Federal Confidentiality of Alcohol and Drug Abuse Patient Records regulations: The Federal rules restrict any use of the information to criminally investigate or prosecute any alcohol or drug abuse patient.[facility] the event this information is protected by the Federal Confidentiality of Alcohol and Drug Abuse Patient Records regulations: The Federal rules restrict any use of the information to criminally investigate or prosecute any alcohol or drug abuse patient.[facility] Reason for Visit (unrecogniz ed section and content) Reason Comments Patient Update Patient Question Reason Comments Patient Update Reason Comments Follow Up Reason Comments Stoma Consult (unrecognized sect ion and content) No Status Records FoundNo Status Records Found INFORMATION SOURCE (unrecogn ized section and content) DATE CREATED AUTHOR 07/02/2022 [facility] DATE CREATED AUTHOR 'S LAN LOVE 09/01/2024 [facility] FOR RECORDS PERTAINING TO PATIENTS WHO ARE [...] BE BASED ON THE PRIMARY CLINICAL RECORDS. [facility]. provides no warranty or guarantee of the accuracy or completeness of information in this document.
--- OUTSIDE RECORDS SUMMARY | 2024-09-03 14:30 | XMS RPT_ITS | CCD ---
Author Organization [facility] Care Team Providers Care Gallery Or Museum Curator Name Role Phone Aurora VARGAS, Luis Cooley Unavailable DeFinis, Harumi Y Unavailable Unavailable Coreen, RN, Bella Cooley Unavailable Unavailgalo Waite MD, Maury Anthony Unavailable Marco ESPINO, Chente Perez Unavailable DeFinis, Harumi Y Unavailable Unavailable Trenton, Harumi Y Unavailable Unavailable Dr. Chente Conn Primary Care Provider Dr. Chente Conn Referring Provider Vidhya [employer] PLANT TREATER, SOLVENT PLANT TREATER-C Valarie Attending Provider Dr. Maury Waite Attending Provider Dr. Chente Conn Primary Care Provider Dr. Chente Conn Referring Provider Dr. Jacek Monsalve Attending Provider Dr. Chente Conn Primary Care Provider Dr. Chente Conn Referring Provider Dr. Maury Waite Attending Provider MD Dayo Jo Emergency Provider Dr. Cindy Alexandre Admit Provider Dr. Cindy Alexandre Other Provider Dr. Jacek Monsalve Other Provider Dr. Yovanny Moreira Attending Provider Dr. Yovanny Moreira Other Provider Dr. Armando Plaza Other Provider Dr. John Tolentino Other Provider Unavailab pio Kee [employer] PLANT T[employer]ATER, SOL[employer] PLANT TREATER-C Valarie Other Provider Dr. Lucia Dillard Other [...] Provider Dr. Chente Conn Referring Provider Vidhya [employer] PL[employer] TREATER, [employer] PL[employer] TREATER-C Valarie Attending Provider Dr. Chente Conn Primary Care Provider Dr. Maury Waite Attending Provider Dr. Cindy Alexandre Referring Provider MD Dayo Jo Emergency Provider Dr. Cindy Alexandre Admit Provider Dr. Cindy Alexandre Other Provider Dr. Jacek Monsalve Other Provider Dr. Yovanny Moreira Attending Provider Dr. Yovanny Moreira Other Provider Dr. Armando Plaza Other Provider Dr. John Tolentino Other Provider Unavailab pio Kee [employer] PL[employer] T[employer]ATER, SOL[employer] PLANT TREATER-C Valarie Other Provider Dr. Lucia Dillard Other Provider Dr. Fiona Echavarria Other Provider Dr. Lucia Dillard Attending Provider Dr. Jacek Monsalve Attending Provider Dr. Luis Simon Other Provider Dr. Roberto Hathaway Other Provider Dr. Luis Simon Attending Provider [phone] Dr. Barry Young Referring Provider Dr. Barry Young Attending Provider Dr. Barry Young Other Provider Dr. Chente Conn Referring Provider Vidhya [employer] PL[employer] TREATER, [employer] PLANT TREATER-C Valarie Attending Provider Dr. Chente Conn Primary Care Provider Dr. Maury Waite Attending Provider Dr. Cindy Alexandre Referring Provider MD Dayo Jo Emergency Provider Dr. Cindy Alexandre Admit Provider Dr. Cindy Alexandre Other Provider Dr. Jacek Monsalve Other Provider Dr. Yovanny Moreira Attending Provider Dr. Yovanny Moreira Other Provider Dr. Armando Plaza Other Provider Dr. John Tolentino Other Provider Unavailab pio Kee [employer] PLANT TREATER, SOL[employer] PLANT TREATER-C Valarie Other Provider Dr. Lucia Dillard Other Provider Dr. Fiona Echavarria Other Provider Dr. Lucia Dillard Attending Provider Dr. Jacek Monsalve Attending Provider Dr. Luis Simon Other Provider Dr. Roberto Hathaway Other Provider Dr. Luis Simon Attending Provider Dr. Barry Young Referring Provider Dr. Barry Young Attending Provider Dr. Barry Young Other Provider Dr. Chente Conn Referring Provider Vidhya [employer] T[employer]ATER, [employer] PL[employer] TREATER-C Valarie Attending Provider Dr. Dario De La Torre Emergency Provider [facility], Dr. Jaimes Admit Provider [place], Dr. Jaimes Attending Provider Chente Perkins MD Primary Care Provider Dr. Chente Conn Primary Care Provider Dr. Dario De La Torre Emergency Provider [facility], Dr. Jaimes Admit Provider Dr. Fiona Echavarria Attending Provider Dr. Fiona Echavarria Other Provider Dr. Jacek Monsalve Other Provider Dr. Yovanny Moreira Other Provider Dr. Armando Plaza Other Provider Dr. John Tolentino Other Provider Unavailab pio Kee [employer] PLANT TREATER, SOLVENT PLANT TREATER-C Valarie Other Provider Dr. Lucia Dillard Attending Provider Dr. Jacek Monsalve Attending Provider Dr. Lucia Dillard Other Provider Dr. Roberto Hathaway Other Provider [phone] [place], Dr. Cindy Sharpe Referring Provider Dr. [...] John Tolentino Other Provider Unavailab pio Kee [employer] PL[employer] TREATER, SOL[employer] PLANT TREATER-C Valarie Other Provider Dr. Lucia Dillard Attending Provider Dr. Jacek Monsalve Attending Provider Dr. Lucia Dillard Other Provider Dr. Roberto Hathaway Other Provider [phone] [place], Dr. Cindy Sharpe Referring Provider [phone] Dr. Luis Simon Other Provider [phone] Admit Provider Dr. Camacho Gonzalez Other Provider [phone] Barry Young Other Provider Dr. Cindy Alexandre Other Provider Dr. Vanessa Roberts Attending Provider Dr. Vanessa Roberts Other Provider Dr. Michael Posadas Other Provider Unavailable Dr. Chente Conn Referring Provider Vidhya [employer] PL[employer] TREATER, SOL[employer] PL[employer] TREATER-C Valarie Attending Provider Dr. Chente Conn Primary Care Provider Dr. Chente Conn Primary Care Provider Dr. Stefan Gregory Attending Provider Dr. Donte Abebe Referring Provider Dr. Miky Rahman Emergency Provider Dr. Donte Abebe Admit Provider Dr. Donte Abebe Attending Provider Dr. Donte Abebe Other Provider Dr. Chente Conn Referring Provider Vidhya [employer] PLANT TREATER, SOL[employer] PLANT TREATER-C Valarie Attending Provider Dr. Siddharth De La [...] Dr. Camacho Gonzalez Other Provider Dr. Camacho Gonzaelz Attending Provider Dr. Chente Conn Primary Care Provider Dr. Siddharth De La Rosa Emergency Provider Dr. Lucia Dillard Admit Provider Dr. Lucia Dillard Attending Provider Dr. Lucia Dillard Other Provider Dr. Krishna Siddiqui Other Provider Bello, Dr. Read Attending Provider Dr. Jacek Monsalve Other Provider Dr. Yovanny Moreira Other Provider Dr. Mckinley Tristan Other Provider Dr. Cari Cavazos Other Provider Dr. Zacakry Castro Other Provider Dr. Gris Hewitt Other Provider Dr. Patrice Langley Other Provider Unavailable Dr. Goran Rose Other Provider [phone] Dr. Luis Mohr Other Provider Dr. Vito Bright Other Provider Dr. Luther Huggins Other Provider Dr. Camacho Gonzalez Referring Provider Dr. Camacho Gonzalez Other Provider Dr. Camacho Gonzalez Attending Provider Dr. Chente Conn Primary Care Provider Dr. Chente Conn Referring Provider Vidhya [employer] PL[employer] TREATER, [employer] PL[employer] TREATER-C Valarie Attending Provider [phone] Dr. Siddharth De La Rosa Emergency Provider Dr. Lucia Dillard Admit Provider Dr. Lucia Dillard Attending Provider Dr. Lucia Dillard Other Provider Dr. Krishna Siddiqui Other Provider Dr. Jacek Monsalve Attending Provider Dr. Jacek Monsalve Other Provider Dr. Yovanny Moreira Other Provider Dr. Mckinley Tristan Other Provider [phone] Cari Cavazos Other Provider Dr. Zackary Castro Other Provider Dr. Gris Hewitt Other Provider Dr. Patrice Langley Other Provider Unavailable Dr. Goran Rose Other Provider Dr. Luis Mohr Other Provider Dr. Vito Bright Other Provider Dr. Luther Huggins Other Provider Dr. Camacho Gonzalez Referring Provider Dr. Camacho Gonzalez Other Provider Dr. Camacho Gonzalez Attending Provider Dr. Chente Conn MD Primary Care Provider Senia VARGAS, Dr. Chente De La Paz Attending Provider [phone] Dr. Chente Conn MD Referring Provider [phone] Ajay THOMAS, Dr. Clement Attending Provider [phone] Ajay THOMAS, Dr. Clement Emergency Provider [phone] Torey Weber MD Attending Provider Ajay THOMAS, Dr. Clement Referring Provider [phone] Stacie VARGAS, Dr. Pereyra Attending Provider [phone] Roddy Quinones MD Referring Provider [phone] Chente Conn MD Referring Provider Unavailable Ovi SOLVENT PLANT TREATER-C, Amber Cooley Attending Provider Vidhya SOLVENT PLANT TREATER-CValarie Attending Provider Vidhya SOLVENT PLANT TREATER-CValarie Referring Provider Dr. Chente oCnn MD Primary Care Provider [phone] Dr. Chente Conn MD Attending Provider Dr. Chente Conn MD Referring Provider King SAM, Dr. Felipe Attending Provider King SAM, Dr. Felipe Other Provider Dr. Chente Conn MD Primary Care Provider Dr. Chente Conn MD Attending Provider [phone] Senia VARGAS, Dr. Chente De La Paz [...] De La Paz Primary Care Provider [phone] Senia VARGAS, Dr. Chente De La Paz Attending Provider Senia VARGAS, Dr. Chente De La Paz Referring Provider Chente Conn Primary Care Unavailable Matteo Posadas Attending Unavailable Matteo Posadas Referring Unavailable Chente Conn Primary Care Unavailable Vidhya [employer]VENT PLANT TREATER, Valarie Attending Unavailable Vidhya [employer] PLANT TREATER, Valarie Referring Unavailable Chente Conn Primary Care [...] Luis Consulting Unavailable Dhepurvi, Chase Consulting Unavailable Tejidner Landin Consulting Unavailable Flaquito Rider Consulting Unavailable [...] Referring Unavailable Amber Dior Attending Unavailable Vidhya SOLVENT PLANT TREATER, Valarie Attending Unavailable Nathanael, Torey Primary Care [...] acetaminophen / codeine drug allergy 07-04-19 15 [facility] Work Phone: (8 sources) cisapride drug allergy 07-04-19 15 [facility] Work Phone: (8 sources) codeine drug allergy 07-04-19 15 [facility] Work Phone: (20 sources) Dust; Translations: [DUST] allergy to substance 07-04-19 15 Other [facility] Work Phone: (8 sources) metroNIDAZOLE drug allergy 07-04-19 15 [facility] Work Phone: (14 sources) morphine; Translations: [ASTRAMORPH] allergy to substance 07-04-19 15 hallucinations [facility] Work Phone: (20 sources) morphine; Translations: [MORPHINE] drug allergy 06-23-19 Other: See Comments [facility] Work Phone: (14 sources) vancomycin; Translations: [VANCOMYCIN HCL] drug allergy 01-08-20 16 [facility] Work Phone: (20 sources) Cisapride; Translations: [cisapride monohydrate] Drug Allergy 05-20-19 [facility] (20 sources) Codeine; Translations: [CODEINE] Drug Allergy 06-23-19 Other: See Comments [facility] (20 sources) metroNIDAZOLE Drug Allergy 05-20-19 22 [facility] (20 sources) house dust allergenic extract Drug Allergy 12-01-19 NEEDS FOLLOW-UP [facility] (6 sources) Cisapride; Translations: [PROPULSID] Drug Allergy 02-08-20 12 [facility] (6 sources) metroNIDAZOLE; Translations: [METRONIDAZOLE HCL] Drug Allergy 05-09-19 15 [facility] Work Phone: (20 sources) Chlorhexidine Drug Allergy 06-23-19 23 [facility] (1 source) Chlorhexidine Drug Allergy 06-16-19 25 [facility] (1 source) Codeine Drug Allergy 06-16-19 25 [facility] (1 source) house dust allergenic extract Drug Allergy 06-16-19 25 [facility] (1 source) metroNIDAZOLE Drug Allergy 06-16-19 25 [facility] Medications Current Medications Medication Drug Class(es) [...] October 23, 2022 11:00pm Start: 10-24-2022 [facility] [place] xide-Simeth Active 5 ML PO 0000,0600,1200,1800 October 24, 2022 12:00am aluminum hydroxide 40 mg/ml / magnesium hydroxide 40 mg/ml / simethicone 4 mg/ml oral suspension (20 sources) Start: 10-24-2022 [facility] [place] xide-Simeth 200-200-20 mg/5 mL suspension Active 5 mL PO 0000,0600,1200,1800 as needed for ANTACID October 24, 2022 12:00am Start: 10-24-2022 [facility] [place] xide-Simeth Active 5 ML PO 0000,0600,1200,1800 October 24, 2022 12:00am Start: 01-11-2021 [facility] [place] xide-Simeth Active 20 ML feeding tube 4 [...] 73 4.1 mcg intrath daily BACLOFEN SOLN [id number] Luann Elliott calcium carbonate 250 mg/ml oral [...] Cough Assist A ctive 1 NMA .Route .[facility] December 25, 2018 2:40pm assist in clearing secretions Inspiratory and Expiratory times of 20-40 seconds with a 1-2 second pause. Start: 12-25-2018 Cough Assist A ctive 1 NMA .Route .[facility] December 25, 2018 2:40pm Inspiratory and Expiratory times of 20-40 seconds with a 1-2 second pause. Start: 12-25-2018 Cough Assist A ctive 1 DOSE .Route .[facility] December 25, 2018 1:40pm Inspiratory and Expiratory times of 20-40 seconds with a 1-2 second pause. Start: 12-25-2018 Cough Assist A ctive 1 DOSE .Route .[facility] December 25, 2018 2:40pm Inspiratory and [...] 20-40 seconds with a 1-2 second pause. [id number] 0.3 ml EPINEPHrine 1 mg/ml auto-injector (6 [...] by mouth three times daily METOCLOPRAMIDE HCL [id number] Maury Waite MD Start: 12-20-2015 End: 09-16-2018 [...] 3 September 30, 2023 11:26am ASTHMA nystatin [id number] unt/ml oral suspension (7 sources) Polyene Antifungal [...] TABS 60 mg. GT twice daily PHENOBARBITAL [id number] Luann Elliott Comment on above: Inject intravenously [...] tablet by mouth twice daily AMOXICILLIN-POT CLAVULANATE [id number] Maury Waite MD Start: 07-21-2016 End: 07-29-2016 [...] GTUBE every 8 hours; docusate / sennosides, fpc (14 sources) Start: 08-28-2016 SENNA-DOCUSATE SODIUM TABS as direceted as needed SENNOSIDES-DOCUSATE SODIUM TABS [id number] Maury Waite MD SENNA-DOCUSATE S ODIUM TABS SENNOSIDES-DOCUSATE SODIUM TABS [id number] Rosa Taylor LPN doxazosin 2 mg oral [...] 4; 1 cap by mouth daily LACTOBACILLUS [id number] Luann Elliott lactobacillus acidophilus [id number] unt oral capsule (20 sources) Start: 09-20-19 [...] mouth daily as needed MAGNESIUM HYDROXIDE SUSP [id number] Maury Waite MD Start: 12-20-2015 End: 12-27-2018 [...] ml by mouth daily MAGNESIUM HYDROXIDE SUSP [id number] Luann Elliott Comment on above: Take by mouth as nee ded. NUTRITIONAL SUPPLEMENTS (8 sources) take 237 mL by mouth four times daily JEVITY 1 BENNY LIQD 237 ml by mouth 4 times daily NUTRITIONAL SUPPLEMENTS [id number] Luann Elliott ofloxacin 3 mg/ml ophthalmic solution (8 sources) Quinolone Antimicrobial Start: 01-10-20 16 End: 01-17-20 16 OFLOXACIN 0.3 % SOLN qid OFLOXACIN [id number] Trice Brenner MD ondansetron 4 mg disintegrating [...] three times a day prn ONDANSETRON HCL [id number] Rosa Taylor CLIENT RELATIONSHIP EXECUTIVE pantoprazole 40 mg delayed release oral tablet [...] pneumonia weekly bmp and cbc. Fax to [phone] routine midline care plecanatide 3 mg oral tablet (20 sources) Start: 04-25-2020 End: 04-05-2024 Plecanatide 3 mg tablet Discontinued 3 mg GT 0830 November 27, 2020 3:23pm April 05, 2024 5:06pm [facility] polyethylene glycol 3350 07185 mg powder for oral solution (20 sources) [...] 17g m q d POLYETHYLENE GLYCOL 3350 [id number] Rosa Taylor CLIENT RELATIONSHIP EXECUTIVE potassium chloride 1.33 meq/ml oral solution (20 [...] on above: 15 mEq by PEG/JET ro [place] once daily. rifAXIMin 550 mg oral tablet [...] 2015 12:00am December 27, 2018 10:53am sennosides, fpc 1.76 mg/ml oral solution (5 sources) Start: [...] GT daily as needed DOCUSATE SODIUM LIQD [id number] Maury Waite MD DOCUSATE SODIUM LIQD 200 mg GT daily DOCUSATE SODIUM LIQD [id number] Luann Elliott simethicone 66.7 mg/ml oral suspension [...] 24, 2023 12:00am September 30, 2023 12:00am [place] 9th, 2024 12:04am vancomycin 125 mg oral [...] THEREAFTER End: 01-08-2016 VANCOMYCIN+SYRSPEND SF PH4 S FPC 125mg q 6 hrs x 10 days VANCOMYCIN HCL SUSP [id number] Rosa Taylor CLIENT RELATIONSHIP EXECUTIVE Problems Active Problems Problem Classification Problem Date [...] Auto (Unsp spec) [#/Vol] 1.17 10*3/uL 0.83-4.51 [facility] Absolute neutrophil countOrd ered By: Chente Conn on 08-22-2024 Neutrophils (Bld) [#/Vol] 2.1 10*3/uL 2.0-7.7 [facility] Anion gap in Serum or Plasma Ordered By: Chente Conn on 08-22-2024 Anion gap [Moles/Vol] 9 mmol/L 5-15 [facility] Automated lymphocyte count a s percentage of total leukocytesOrdered By: Chente Conn on 08-22-2024 Lymphocytes/100 WBC Auto (Unsp spec) 31.3 % 19-41 [facility] BUN/creatinine ratioOrdered By: Chente Conn on 08-22-2024 Urea nitrogen/Creatinine [Mass ratio] 46.4 mg/mg High 10-20 [facility] Basophil percentageOrdered B y: Chente Conn on 08-22-2024 Basophils/100 WBC (Bld) 0.0 % 0-1 [facility] Carbon dioxide, total [Moles /volume] in Central venous bloodOrdered By: Chente Conn on 08-22-2024 CO2 [Moles/Vol] 28.9 mmol/L 21.0-32.0 [facility] Chloride assayOrdered By: Areli Conn on 08-22-2024 Chloride [Moles/Vol] 99 mmol/L 98-108 [facility] Eosinophil percentageOrdered By: Chente Conn on 08-22-2024 Eosinophils/100 WBC (Bld) 4.5 % 0-5 [facility] Erythrocyte distribution wid th ratioOrdered By: Chente Conn on 08-22-2024 Erythrocyte distribution width (RBC) [Ratio] 16.3 % High 11.6-14.6 [facility] Erythrocyte distribution wid th standard deviationOrdered By: Chente Conn on 08-22-2024 Erythrocyte distribution width (RBC) [Ratio] 49.5 fl High 35.1-43.9 [facility] Glomerular filtration rate ( GFR) estimation/1.73 sq m using serum, plasma, or whole bOrdered By: Chente Conn on 08-22-2024 GFR/1.73 sq M.predicted among non-blacks MDRD (S/P/Bld) [Vol rate/Area] 167 mL/min/{1.73_m2} >60 [facility] Comment on above: mL/min/1.73m2 CKD-EP I Creatinine Equation (2020) Hematocrit Auto (Bld) [Volum e fraction]Ordered By: Chente Conn on 08-22-2024 Hematocrit (Bld) [Volume fraction] 31.8 % Low 40-54 [facility] Hemoglobin measurementOrdere d By: Chente Conn on 08-22-2024 Hemoglobin (Bld) [Mass/Vol] 10.1 g/dL Low 13.0-16.5 [facility] Immature granulocytes/100 WB C Auto (Bld)Ordered By: Chente Conn on 08-22-2024 Immature granulocytes/100 WBC (Bld) 0.500 % 0.0-0.9 [facility] Comment on above: IG% - Immature Granu locytes (promyelocytes, myelocytes and metamyelocytes) > 1% indicates that a LEFT SHIFT is Present. MCV (mean corpuscular volume ) determinationOrdered By: Chente Conn on 08-22-2024 MCV (RBC) [Entitic vol] 85.3 fL 80-94 [facility] Mean corpuscular hemoglobin (MCH) determinationOrdered By: Chente Conn on 08-22-2024 MCH (RBC) [Entitic mass] 27.1 pg 27.0-32.0 [facility] Mean corpuscular hemoglobin concentration (MCHC) determinationOrdered By: Chente Conn on 08-22-2024 MCHC (RBC) [Mass/Vol] 31.8 g/dL Low 32-36 [facility] Mean platelet volume determi nationOrdered By: Chente Conn on 08-22-2024 Platelet mean volume (Bld) [Entitic vol] 10.8 fL 6.2-12.0 [facility] Monocyte percentageOrdered B y: Chente Conn on 08-22-2024 Monocytes/100 WBC (Bld) 8.8 % 0-10 [facility] Neutrophil percentageOrdered By: Chente Conn on 08-22-2024 Neutrophils/100 WBC (Bld) 54.9 % 47-70 [facility] Nucleated red blood cell per centageOrdered By: Chente Conn on 08-22-2024 Nucleated RBC/100 WBC (Bld) [Ratio] 0 % 0-5 [facility] Platelet countOrdered By: Areli Conn on 08-22-2024 Platelets (Bld) [#/Vol] 118 10*3/uL Low 150-450 [facility] Potassium measurement (mass/ volume)Ordered By: Chente Conn on 08-22-2024 Potassium (Unsp spec) [Mass/Vol] 4.1 mmol/L 3.3-5.1 [facility] RBC Auto (Bld) [#/Vol]Ordere d By: Chente Conn on 08-22-2024 RBC (Bld) [#/Vol] 3.73 10*6/uL Low 4.6-6.2 [facility] Serum creatinine measurement (mass/volume)Ordered By: Chente Conn on 08-22-2024 Creatinine [Mass/Vol] 0.22 mg/dL Low 0.70-1.20 [facility] Serum glucose measurement (m ass/volume)Ordered By: Chente Conn on 08-22-2024 Glucose [Mass/Vol] 90 mg/dL 70-99 [facility] Serum or plasma calcium jacinta urement (mass/volume)Ordered By: Chente Conn on 08-22-2024 Calcium [Mass/Vol] 8.7 mg/dL 7.6-11.0 [facility] Serum or plasma urea nitroge n measurement (mass/volume)Ordered By: Chente Conn on 08-22-2024 Urea nitrogen [Mass/Vol] 10 mg/dL 4-19 [facility] Sodium levelOrdered By: Chente Conn on 08-22-2024 Sodium [Moles/Vol] 137 mmol/L 133-145 [facility] White blood cell (WBC) count Ordered By: Chente Conn on 08-22-2024 WBC (Bld) [#/Vol] 3.7 10*3/uL Low 4.4-11.0 [facility] Laboratory - Chemistry and C hemistry - challengeOrdered By: Matteo Posadas on 07-27-2024 Testosterone [Mass/Vol] 15.60 ng/dL Low 300-890 [facility] Absolute lymphocyte countOrd ered By: Chente Conn on 07-25-2024 Lymphocytes Auto (Unsp spec) [#/Vol] 2.03 10*3/uL 0.83-4.51 [facility] Absolute neutrophil countOrd ered By: Chente Conn on 07-25-2024 Neutrophils (Bld) [#/Vol] 3.4 10*3/uL 2.0-7.7 [facility] Anion gap in Serum or Plasma Ordered By: Chente Conn on 07-25-2024 Anion gap [Moles/Vol] 14 mmol/L 5-15 [facility] Automated lymphocyte count a s percentage of total leukocytesOrdered By: Chente Conn on 07-25-2024 Lymphocytes/100 WBC Auto (Unsp spec) 31.8 % 19-41 [facility] BUN/creatinine ratioOrdered By: Chente Conn on 07-25-2024 Urea nitrogen/Creatinine [Mass ratio] 24.1 mg/mg High 10-20 [facility] Basophil percentageOrdered B y: Chente Conn on 07-25-2024 Basophils/100 WBC (Bld) 0.2 % 0-1 [facility] Carbon dioxide, total [Moles /volume] in Central venous bloodOrdered By: Chente Cnon on 07-25-2024 CO2 [Moles/Vol] 25.0 mmol/L 21.0-32.0 [facility] Chloride assayOrdered By: Areli Conn on 07-25-2024 Chloride [Moles/Vol] 99 mmol/L 98-108 [facility] Eosinophil percentageOrdered By: Chente Conn on 07-25-2024 Eosinophils/100 WBC (Bld) 3.6 % 0-5 [facility] Erythrocyte distribution wid th ratioOrdered By: Chente Conn on 07-25-2024 Erythrocyte distribution width (RBC) [Ratio] 15.6 % High 11.6-14.6 [facility] Erythrocyte distribution wid th standard deviationOrdered By: Chente Conn on 07-25-2024 Erythrocyte distribution width (RBC) [Ratio] 47.2 fl High 35.1-43.9 [facility] Glomerular filtration rate ( GFR) estimation/1.73 sq m using serum, plasma, or whole bOrdered By: Chente Conn on 07-25-2024 GFR/1.73 sq M.predicted among non-blacks MDRD (S/P/Bld) [Vol rate/Area] 148 mL/min/{1.73_m2} >60 [facility] Comment on above: mL/min/1.73m2 CKD-EP I Creatinine Equation (2020) Hematocrit Auto (Bld) [Volum e fraction]Ordered By: Chente Conn on 07-25-2024 Hematocrit (Bld) [Volume fraction] 30.1 % Low 40-54 [facility] Hemoglobin measurementOrdere d By: Chente Conn on 07-25-2024 Hemoglobin (Bld) [Mass/Vol] 9.8 g/dL Low 13.0-16.5 [facility] Immature granulocytes/100 WB C Auto (Bld)Ordered By: Chente Conn on 07-25-2024 Immature granulocytes/100 WBC (Bld) 0.300 % 0.0-0.9 [facility] Comment on above: IG% - Immature Granu locytes (promyelocytes, myelocytes and metamyelocytes) > 1% indicates that a LEFT SHIFT is Present. MCV (mean corpuscular volume ) determinationOrdered By: Chente Conn on 07-25-2024 MCV (RBC) [Entitic vol] 84.1 fL 80-94 [facility] Mean corpuscular hemoglobin (MCH) determinationOrdered By: Chente Conn on 07-25-2024 MCH (RBC) [Entitic mass] 27.4 pg 27.0-32.0 [facility] Mean corpuscular hemoglobin concentration (MCHC) determinationOrdered By: Chente Conn on 07-25-2024 MCHC (RBC) [Mass/Vol] 32.6 g/dL 32-36 [facility] Mean platelet volume determi nationOrdered By: Chente Conn on 07-25-2024 Platelet mean volume (Bld) [Entitic vol] 10.2 fL 6.2-12.0 [facility] Monocyte percentageOrdered B y: Chente Conn on 07-25-2024 Monocytes/100 WBC (Bld) 11.6 % High 0-10 [facility] Neutrophil percentageOrdered By: Chente Conn on 07-25-2024 Neutrophils/100 WBC (Bld) 52.5 % 47-70 [facility] Nucleated red blood cell per centageOrdered By: Chente Conn on 07-25-2024 Nucleated RBC/100 WBC (Bld) [Ratio] 0 % 0-5 [facility] Platelet countOrdered By: Areli Conn on 07-25-2024 Platelets (Bld) [#/Vol] 166 10*3/uL 150-450 [facility] Potassium measurement (mass/ volume)Ordered By: Chente Conn on 07-25-2024 Potassium (Unsp spec) [Mass/Vol] 3.7 mmol/L 3.3-5.1 [facility] RBC Auto (Bld) [#/Vol]Ordere d By: Chente Conn on 07-25-2024 RBC (Bld) [#/Vol] 3.58 10*6/uL Low 4.6-6.2 [facility] Serum creatinine measurement (mass/volume)Ordered By: Chente Conn on 07-25-2024 Creatinine [Mass/Vol] 0.33 mg/dL Low 0.70-1.20 [facility] Serum glucose measurement (m ass/volume)Ordered By: Chente Conn on 07-25-2024 Glucose [Mass/Vol] 113 mg/dL High 70-99 [facility] Serum or plasma calcium jacinta urement (mass/volume)Ordered By: Chente Conn on 07-25-2024 Calcium [Mass/Vol] 8.8 mg/dL 7.6-11.0 [facility] Serum or plasma urea nitroge n measurement (mass/volume)Ordered By: Chente Conn on 07-25-2024 Urea nitrogen [Mass/Vol] 8 mg/dL 4-19 [facility] Sodium levelOrdered By: Chente Conn on 07-25-2024 Sodium [Moles/Vol] 137 mmol/L 133-145 [facility] White blood cell (WBC) count Ordered By: Chente Conn on 07-25-2024 WBC (Bld) [#/Vol] 6.4 10*3/uL 4.4-11.0 [facility] Free testosterone percentage Ordered By: Matteo Posadas on 07-18-2024 Testosterone Free/Testosterone.total [Mass fraction] 5.01 % High 1.50-4.20 [facility] Insulin-like growth factor ( IGF) measurementOrdered By: Matteo Posadas on 07-18-2024 Insulin-like growth factor [Moles/Vol] 109 ng/mL 84-270 [facility] Comment on above: Performed at: [facility] [address] [id number] Director: Berry Gonzalez PhD, Phone: [phone] at: [facility] Lab[address] [id number] Director: Nicholas Ryan MD, Phone: [phone] Serum or plasma free testost erone measurement (mass/volume)Ordered By: Matteo Posadas on 07-18-2024 Testosterone Free [Mass/Vol] 0.50 ng/dL Low 5.00-21.00 [facility] Testosterone, totalOrdered B y: Matteo Posadas on 07-18-2024 Testosterone [Mass/Vol] 10 ng/dL Low 264-916 [facility] Comment on above: Adult male reference interval is based on a population ofhealthy nonobese males (BMI <30) between 19 and 39 yearsold. Marlen et.al. JCEM 2017,102;[id number]. PMID:[id number]. Absolute lymphocyte countOrd ered By: Chente Conn on 06-26-2024 Lymphocytes Auto (Unsp spec) [#/Vol] 2.13 10*3/uL 0.83-4.51 [facility] Absolute neutrophil countOrd ered By: Chente Conn on 06-26-2024 Neutrophils (Bld) [#/Vol] 2.7 10*3/uL 2.0-7.7 [facility] Anion gap in Serum or Plasma Ordered By: Chente Conn on 06-26-2024 Anion gap [Moles/Vol] 10 mmol/L 5-15 [facility] Automated lymphocyte count a s percentage of total leukocytesOrdered By: Chente Conn on 06-26-2024 Lymphocytes/100 WBC Auto (Unsp spec) 36.8 % 19-41 [facility] BUN/creatinine ratioOrdered By: Chente Conn on 06-26-2024 Urea nitrogen/Creatinine [Mass ratio] 40.8 mg/mg High 10-20 [facility] Basophil percentageOrdered B y: Chente Conn on 06-26-2024 Basophils/100 WBC (Bld) 0.3 % 0-1 [facility] Bilirubin, totalOrdered By: Chente Conn on 06-26-2024 Bilirubin [Mass/Vol] 0.16 mg/dL 0.00-1.30 [facility] Carbon dioxide, total [Moles /volume] in Central venous bloodOrdered By: Chente Conn on 06-26-2024 CO2 [Moles/Vol] 27.6 mmol/L 21.0-32.0 [facility] Chloride assayOrdered By: Areli Conn on 06-26-2024 Chloride [Moles/Vol] 98 mmol/L 98-108 [facility] Eosinophil percentageOrdered By: Chente Conn on 06-26-2024 Eosinophils/100 WBC (Bld) 6.6 % High 0-5 [facility] Erythrocyte distribution wid th ratioOrdered By: Chente Conn on 06-26-2024 Erythrocyte distribution width (RBC) [Ratio] 15.4 % High 11.6-14.6 [facility] Erythrocyte distribution wid th standard deviationOrdered By: Chente Conn on 06-26-2024 Erythrocyte distribution width (RBC) [Ratio] 46.5 fl High 35.1-43.9 [facility] Glomerular filtration rate ( GFR) estimation/1.73 sq m using serum, plasma, or whole bOrdered By: Chente Conn on 06-26-2024 GFR/1.73 sq M.predicted among non-blacks MDRD (S/P/Bld) [Vol rate/Area] 157 mL/min/{1.73_m2} >60 [facility] Comment on above: mL/min/1.73m2 CKD-EP I Creatinine Equation (2020) Hematocrit Auto (Bld) [Volum e fraction]Ordered By: Chente Conn on 06-26-2024 Hematocrit (Bld) [Volume fraction] 32.2 % Low 40-54 [facility] Hemoglobin measurementOrdere d By: Chente Conn on 06-26-2024 Hemoglobin (Bld) [Mass/Vol] 10.3 g/dL Low 13.0-16.5 [facility] Immature granulocytes/100 WB C Auto (Bld)Ordered By: Chente Conn on 06-26-2024 Immature granulocytes/100 WBC (Bld) 0.300 % 0.0-0.9 [facility] Comment on above: IG% - Immature Granu locytes (promyelocytes, myelocytes and metamyelocytes) > 1% indicates that a LEFT SHIFT is Present. Iron measurement (mass/mass) Ordered By: Chente Conn on 06-26-2024 Iron (Unsp spec) [Mass/Mass] 30 ug/dL Low 65-175 [facility] LH ser/plasOrdered By: Matteo Posadas on 06-26-2024 Lutropin Qn 40.9 m[IU]/mL [facility] Comment on above: FEMALE:Follicular: 1 .9-12.5 mIU/mLMidcycle: 8.7-76.3 mIU/mLLuteal: 0.5-16.9 mIU/mLPost Menopause: 15.9-54.0 mIU/mLMALE:20-70 Years: 1.5-9.3 mIU/mL>70 Years: 3.1-34.6 mIU/mL Laboratory - Chemistry and C hemistry - challengeOrdered By: Chente Conn on 06-26-2024 AST [Catalytic activity/Vol] 12 U/L <38 [facility] MCV (mean corpuscular volume ) determinationOrdered By: Chente Conn on 06-26-2024 MCV (RBC) [Entitic vol] 84.3 fL 80-94 [facility] Mean corpuscular hemoglobin (MCH) determinationOrdered By: Chente Conn on 06-26-2024 MCH (RBC) [Entitic mass] 27.0 pg 27.0-32.0 [facility] Mean corpuscular hemoglobin concentration (MCHC) determinationOrdered By: Chente Conn on 06-26-2024 MCHC (RBC) [Mass/Vol] 32.0 g/dL 32-36 [facility] Mean platelet volume determi nationOrdered By: Chente Conn on 06-26-2024 Platelet mean volume (Bld) [Entitic vol] 10.0 fL 6.2-12.0 [facility] Monocyte percentageOrdered B y: Chente Conn on 06-26-2024 Monocytes/100 WBC (Bld) 9.2 % 0-10 [facility] Neutrophil percentageOrdered By: Chente Conn on 06-26-2024 Neutrophils/100 WBC (Bld) 46.8 % Low 47-70 [facility] No Panel InformationOrdered By: Chente Conn on 06-26-2024 Unsaturated Iron Binding Capacity 216 ug/dL Low 228-428 [facility] Nucleated red blood cell per centageOrdered By: Chente Conn on 06-26-2024 Nucleated RBC/100 WBC (Bld) [Ratio] 0 % 0-5 [facility] Platelet countOrdered By: Areli Conn on 06-26-2024 Platelets (Bld) [#/Vol] 204 10*3/uL 150-450 [facility] Potassium measurement (mass/ volume)Ordered By: Chente Conn on 06-26-2024 Potassium (Unsp spec) [Mass/Vol] 3.8 mmol/L 3.3-5.1 [facility] RBC Auto (Bld) [#/Vol]Ordere d By: Chente Conn on 06-26-2024 RBC (Bld) [#/Vol] 3.82 10*6/uL Low 4.6-6.2 [facility] Serum creatinine measurement (mass/volume)Ordered By: Chente Conn on 06-26-2024 Creatinine [Mass/Vol] 0.27 mg/dL Low 0.70-1.20 [facility] Serum globulin measurementOr dered By: Chente Conn on 06-26-2024 Globulin (S) [Mass/Vol] 4.2 g/dL 2.2-4.2 [facility] Serum glucose measurement (m ass/volume)Ordered By: Chente Conn on 06-26-2024 Glucose [Mass/Vol] 80 mg/dL 70-99 [facility] Serum or plasma alanine salas otransferase (ALT) measurementOrdered By: Chente Conn on 06-26-2024 ALT [Catalytic activity/Vol] 8 U/L <47 [facility] Serum or plasma albumin jacinta urement (mass/volume)Ordered By: Chente Conn on 06-26-2024 Albumin [Mass/Vol] 3.6 g/dL 3.5-5.0 [facility] Serum or plasma albumin/glob ulin mass ratioOrdered By: Chente Conn on 06-26-2024 Albumin/Globulin [Mass ratio] 0.8 {ratio} Low 0.9-2.4 [facility] Serum or plasma alkaline robbi sphatase measurementOrdered By: Chente Conn on 06-26-2024 ALP [Catalytic activity/Vol] 166 U/L High 40-129 [facility] Serum or plasma calcium jacinta urement (mass/volume)Ordered By: Chente Conn on 06-26-2024 Calcium [Mass/Vol] 8.9 mg/dL 7.6-11.0 [facility] Serum or plasma ferritin missy surement (mass/volume)Ordered By: Chente Conn on 06-26-2024 Ferritin [Mass/Vol] 39 ng/mL 37-417 [facility] Serum or plasma iron saturat ion measurement (mass fraction)Ordered By: Chente Conn on 06-26-2024 Iron saturation [Mass fraction] 12.2 % 9-55 [facility] Comment on above: Previous reported re sult: 12.0 %Edited by: KARTHIKEYAN on 06/26/24:5349 AMENDED REPORT 06/26/24 5461 IRON SATURATION previously reported as: 12.0 % Serum or plasma prolactin me asurement (mass/volume)Ordered By: Matteo Posadas on 06-26-2024 Prolactin [Mass/Vol] See comment [facility] Comment on above: TEST RESULTS LIMITSP rolactin 31.5 High ng/mL 3.9-22.7 TESTING PERFORMED AT [facility]. ORIGINAL REPORT ON FILE IN LAB CONTAINS ADDITIONAL TEST SITE INFORMATION. Serum or plasma urea nitroge n measurement (mass/volume)Ordered By: Chente Conn on 06-26-2024 Urea nitrogen [Mass/Vol] 11 mg/dL 4-19 [facility] Sodium levelOrdered By: Chente Conn on 06-26-2024 Sodium [Moles/Vol] 136 mmol/L 133-145 [facility] Total proteinOrdered By: Darwin Conn on 06-26-2024 Protein [Mass/Vol] 7.8 g/dL 5.9-8.4 [facility] White blood cell (WBC) count Ordered By: Chente Conn on 06-26-2024 WBC (Bld) [#/Vol] 5.8 10*3/uL 4.4-11.0 [facility] Absolute lymphocyte countOrd ered By: Chente Conn on 05-29-2024 Lymphocytes Auto (Unsp spec) [#/Vol] 2.21 10*3/uL 0.83-4.51 [facility] Absolute neutrophil countOrd ered By: Chente Conn on 05-29-2024 Neutrophils (Bld) [#/Vol] 3.5 10*3/uL 2.0-7.7 [facility] Anion gap in Serum or Plasma Ordered By: Chente Conn on 05-29-2024 Anion gap [Moles/Vol] 12 mmol/L 5-15 [facility] Automated lymphocyte count a s percentage of total leukocytesOrdered By: Chente Conn on 05-29-2024 Lymphocytes/100 WBC Auto (Unsp spec) 32.7 % 19-41 [facility] BUN/creatinine ratioOrdered By: Chente Conn on 05-29-2024 Urea nitrogen/Creatinine [Mass ratio] 37.5 mg/mg High 10-20 [facility] Basophil percentageOrdered B y: Chente Conn on 05-29-2024 Basophils/100 WBC (Bld) 0.3 % 0-1 [facility] Bilirubin, totalOrdered By: Chente Conn on 05-29-2024 Bilirubin [Mass/Vol] mg/dL 0.00-1.30 [facility] Carbon dioxide, total [Moles /volume] in Central venous bloodOrdered By: Chente Conn on 05-29-2024 CO2 [Moles/Vol] 25.6 mmol/L 21.0-32.0 [facility] Chloride assayOrdered By: Areli Conn on 05-29-2024 Chloride [Moles/Vol] 100 mmol/L 98-108 [facility] Eosinophil percentageOrdered By: Chente Conn on 05-29-2024 Eosinophils/100 WBC (Bld) 5.2 % High 0-5 [facility] Erythrocyte distribution wid th ratioOrdered By: Chente Conn on 05-29-2024 Erythrocyte distribution width (RBC) [Ratio] 16.6 % High 11.6-14.6 [facility] Erythrocyte distribution wid th standard deviationOrdered By: Chente Conn on 05-29-2024 Erythrocyte distribution width (RBC) [Ratio] 51.6 fl High 35.1-43.9 [facility] Glomerular filtration rate ( GFR) estimation/1.73 sq m using serum, plasma, or whole bOrdered By: Chente Conn on 05-29-2024 GFR/1.73 sq M.predicted among non-blacks MDRD (S/P/Bld) [Vol rate/Area] 147 mL/min/{1.73_m2} >60 [facility] Comment on above: mL/min/1.73m2 CKD-EP I Creatinine Equation (2020) Hematocrit Auto (Bld) [Volum e fraction]Ordered By: Chente Conn on 05-29-2024 Hematocrit (Bld) [Volume fraction] 31.8 % Low 40-54 [facility] Hemoglobin measurementOrdere d By: Chente Conn on 05-29-2024 Hemoglobin (Bld) [Mass/Vol] 10.0 g/dL Low 13.0-16.5 [facility] Immature granulocytes/100 WB C Auto (Bld)Ordered By: Chente Conn on 05-29-2024 Immature granulocytes/100 WBC (Bld) 0.300 % 0.0-0.9 [facility] Comment on above: IG% - Immature Granu locytes (promyelocytes, myelocytes and metamyelocytes) > 1% indicates that a LEFT SHIFT is Present. Laboratory - Chemistry and C hemistry - challengeOrdered By: Chente Conn on 05-29-2024 AST [Catalytic activity/Vol] 14 U/L <38 [facility] MCV (mean corpuscular volume ) determinationOrdered By: Chente Conn on 05-29-2024 MCV (RBC) [Entitic vol] 84.8 fL 80-94 [facility] Mean corpuscular hemoglobin (MCH) determinationOrdered By: Chente Conn on 05-29-2024 MCH (RBC) [Entitic mass] 26.7 pg Low 27.0-32.0 [facility] Mean corpuscular hemoglobin concentration (MCHC) determinationOrdered By: Chente Conn on 05-29-2024 MCHC (RBC) [Mass/Vol] 31.4 g/dL Low 32-36 [facility] Mean platelet volume determi nationOrdered By: Chente Conn on 05-29-2024 Platelet mean volume (Bld) [Entitic vol] 10.1 fL 6.2-12.0 [facility] Monocyte percentageOrdered B y: Chente Conn on 05-29-2024 Monocytes/100 WBC (Bld) 9.6 % 0-10 [facility] Neutrophil percentageOrdered By: Chente Conn on 05-29-2024 Neutrophils/100 WBC (Bld) 51.9 % 47-70 [facility] Nucleated red blood cell per centageOrdered By: Chente Conn on 05-29-2024 Nucleated RBC/100 WBC (Bld) [Ratio] 0 % 0-5 [facility] Platelet countOrdered By: Areli Conn on 05-29-2024 Platelets (Bld) [#/Vol] 182 10*3/uL 150-450 [facility] Potassium measurement (mass/ volume)Ordered By: Chente Conn on 05-29-2024 Potassium (Unsp spec) [Mass/Vol] 3.7 mmol/L 3.3-5.1 [facility] RBC Auto (Bld) [#/Vol]Ordere d By: Chente Conn on 05-29-2024 RBC (Bld) [#/Vol] 3.75 10*6/uL Low 4.6-6.2 [facility] Serum creatinine measurement (mass/volume)Ordered By: Chente Conn on 05-29-2024 Creatinine [Mass/Vol] 0.34 mg/dL Low 0.70-1.20 [facility] Serum globulin measurementOr dered By: Chente Conn on 05-29-2024 Globulin (S) [Mass/Vol] 3.7 g/dL 2.2-4.2 [facility] Serum glucose measurement (m ass/volume)Ordered By: Chente Conn on 05-29-2024 Glucose [Mass/Vol] 107 mg/dL High 70-99 [facility] Serum or plasma alanine salas otransferase (ALT) measurementOrdered By: Chente Conn on 05-29-2024 ALT [Catalytic activity/Vol] 11 U/L <47 [facility] Serum or plasma albumin jacinta urement (mass/volume)Ordered By: Chente Conn on 05-29-2024 Albumin [Mass/Vol] 3.5 g/dL 3.5-5.0 [facility] Serum or plasma albumin/glob ulin mass ratioOrdered By: Chente Conn on 05-29-2024 Albumin/Globulin [Mass ratio] 0.9 {ratio} 0.9-2.4 [facility] Serum or plasma alkaline robbi sphatase measurementOrdered By: Chente Conn on 05-29-2024 ALP [Catalytic activity/Vol] 131 U/L High 40-129 [facility] Serum or plasma calcium jacinta urement (mass/volume)Ordered By: Chente Conn on 05-29-2024 Calcium [Mass/Vol] 8.8 mg/dL 7.6-11.0 [facility] Serum or plasma urea nitroge n measurement (mass/volume)Ordered By: Chente Conn on 05-29-2024 Urea nitrogen [Mass/Vol] 13 mg/dL 4-19 [facility] Sodium levelOrdered By: Chente Conn on 05-29-2024 Sodium [Moles/Vol] 137 mmol/L 133-145 [facility] Total proteinOrdered By: Darwin Conn on 05-29-2024 Protein [Mass/Vol] 7.1 g/dL 5.9-8.4 [facility] White blood cell (WBC) count Ordered By: Chente Conn on 05-29-2024 WBC (Bld) [#/Vol] 6.8 10*3/uL 4.4-11.0 [facility] Gram stainOrdered By: Johnny Kee on 05-09-2024 Microscopic observation Gram stain Nom (Unsp spec) [facility] Microbial respiratory cultur eOrdered By: Valarie Kee on 05-09-2024 Microorganism identified Cx Nom (Unsp spec) Pseudomonas aeruginosa Abnormal [facility] Microorganism identified Cx Nom (Unsp spec) Pseudomonas aeruginosa#2 Abnormal [facility] Microorganism identified Cx Nom (Unsp spec) Proteus mirabilis Abnormal [facility] Microorganism identified Cx Nom (Unsp spec)Ordered By: Valarie Kee on 05-09-2024 Respiratory Culture Pseudomonas aeruginosa Abnormal [facility] Respiratory Culture Pseudomonas aeruginosa#2 Abnormal [facility] Respiratory Culture Proteus mirabilis Abnormal [facility] Absolute lymphocyte countOrd ered By: Chente Conn on 05-01-2024 Lymphocytes Auto (Unsp spec) [#/Vol] 2.20 10*3/uL 0.83-4.51 [facility] Absolute neutrophil countOrd ered By: Chente Conn on 05-01-2024 Neutrophils (Bld) [#/Vol] 3.1 10*3/uL 2.0-7.7 [facility] Anion gap in Serum or Plasma Ordered By: Chente Conn on 05-01-2024 Anion gap [Moles/Vol] 10 mmol/L 5-15 [facility] Automated lymphocyte count a s percentage of total leukocytesOrdered By: Chente oCnn on 05-01-2024 Lymphocytes/100 WBC Auto (Unsp spec) 35.4 % - [facility] BUN/creatinine ratioOrdered By: Chente Conn on 05-01-2024 Urea nitrogen/Creatinine [Mass ratio] 40.6 mg/mg High 10-20 [facility] Basophil percentageOrdered B y: Chente Conn on 05-01-2024 Basophils/100 WBC (Bld) 0.2 % 0-1 [facility] Carbon dioxide, total [Moles /volume] in Central venous bloodOrdered By: Chente Conn on 05-01-2024 CO2 [Moles/Vol] 27.4 mmol/L 21.0-32.0 [facility] Chloride assayOrdered By: Areli Conn on 05-01-2024 Chloride [Moles/Vol] 98 mmol/L 98-108 [facility] Eosinophil percentageOrdered By: Chente Conn on 05-01-2024 Eosinophils/100 WBC (Bld) 4.7 % 0-5 [facility] Erythrocyte distribution wid th ratioOrdered By: Chente Conn on 05-01-2024 Erythrocyte distribution width (RBC) [Ratio] 16.6 % High 11.6-14.6 [facility] Erythrocyte distribution wid th standard deviationOrdered By: Chente Conn on 05-01-2024 Erythrocyte distribution width (RBC) [Entitic vol] 50.4 fL High 35.1-43.9 [facility] Erythrocyte distribution width (RBC) [Ratio] 50.4 fl High 35.1-43.9 [facility] GFR/1.73 sq M.predicted joey g non-blacks MDRD (S/P/Bld) [Vol rate/Area]Ordered By: Chente Conn on 05-01-2024 Estimated GFR (MDRD) Non-Af Amer 154 >60 [facility] Comment on above: mL/min/1.73m2 CKD-EP I Creatinine Equation (2020) Glomerular filtration rate ( GFR) estimation/1.73 sq m using serum, plasma, or whole bOrdered By: Chente Conn on 05-01-2024 GFR/1.73 sq M.predicted among non-blacks MDRD (S/P/Bld) [Vol rate/Area] 154 mL/min/{1.73_m2} >60 [facility] Comment on above: mL/min/1.73m2 CKD-EP I Creatinine Equation (2020) Hematocrit Auto (Bld) [Volum e fraction]Ordered By: Chente Conn on 05-01-2024 Hematocrit (Bld) [Volume fraction] 33.5 % Low 40-54 [facility] Hemoglobin measurementOrdere d By: Chente Conn on 05-01-2024 Hemoglobin (Bld) [Mass/Vol] 10.5 g/dL Low 13.0-16.5 [facility] Immature granulocytes/100 WB C Auto (Bld)Ordered By: Chente Conn on 05-01-2024 Immature granulocytes/100 WBC (Bld) 0.200 % 0.0-0.9 [facility] Comment on above: IG% - Immature Granu locytes (promyelocytes, myelocytes and metamyelocytes) > 1% indicates that a LEFT SHIFT is Present. Lymphocytes Auto (Unsp spec) [#/Vol]Ordered By: Chente Conn on 05-01-2024 Lymphocytes (Bld) [#/Vol] 2.20 10*3/uL 0.83-4.5 1 [facility] Lymphocytes/100 WBC Auto (Un sp spec)Ordered By: Chente Conn on 05-01-2024 Lymphocytes/100 WBC (Bld) 35.4 % 19-41 [facility] MCV (mean corpuscular volume ) determinationOrdered By: Chente Conn on 05-01-2024 MCV (RBC) [Entitic vol] 82.7 fL 80-94 [facility] Mean corpuscular hemoglobin (MCH) determinationOrdered By: Chente Conn on 05-01-2024 MCH (RBC) [Entitic mass] 25.9 pg Low 27.0-32.0 [facility] Mean corpuscular hemoglobin concentration (MCHC) determinationOrdered By: Chente Conn on 05-01-2024 MCHC (RBC) [Mass/Vol] 31.3 g/dL Low 32-36 [facility] Mean platelet volume determi nationOrdered By: Chente Conn on 05-01-2024 Platelet mean volume (Bld) [Entitic vol] 10.5 fL 6.2-12.0 [facility] Monocyte percentageOrdered B y: Chente Conn on 05-01-2024 Monocytes/100 WBC (Bld) 10.3 % High 0-10 [facility] Neutrophil percentageOrdered By: Chente Conn on 05-01-2024 Neutrophils/100 WBC (Bld) 49.2 % 47-70 [facility] Nucleated red blood cell per centageOrdered By: Chente Conn on 03-10-2025 Nucleated RBC/100 WBC (Bld) [Ratio] 0 % 0-5 [facility] Platelet countOrdered By: Areli Conn on 05-01-2024 Platelets (Bld) [#/Vol] 209 10*3/uL 150-450 [facility] Potassium (Unsp spec) [Mass/ Vol]Ordered By: Chente Conn on 05-01-2024 Potassium [Moles/Vol] 4.3 mmol/L 3.3-5.1 [facility] Potassium measurement (mass/ volume)Ordered By: Chente Conn on 05-01-2024 Potassium (Unsp spec) [Mass/Vol] 4.3 mmol/L 3.3-5.1 [facility] RBC Auto (Bld) [#/Vol]Ordere d By: Chente Cnon on 05-01-2024 RBC (Bld) [#/Vol] 4.05 10*6/uL Low 4.6-6.2 [facility] Serum creatinine measurement (mass/volume)Ordered By: Chente Conn on 05-01-2024 Creatinine [Mass/Vol] 0.29 mg/dL Low 0.70-1.20 [facility] Serum glucose measurement (m ass/volume)Ordered By: Chente Conn on 05-01-2024 Glucose [Mass/Vol] 82 mg/dL 70-99 [facility] Serum or plasma calcium jacinta urement (mass/volume)Ordered By: Chente Conn on 05-01-2024 Calcium [Mass/Vol] 8.8 mg/dL 7.6-11.0 [facility] Serum or plasma urea nitroge n measurement (mass/volume)Ordered By: Chente Conn on 05-01-2024 Urea nitrogen [Mass/Vol] 12 mg/dL 4-19 [facility] Sodium levelOrdered By: Chente Conn on 05-01-2024 Sodium [Moles/Vol] 135 mmol/L 133-145 [facility] White blood cell (WBC) count Ordered By: Chente Conn on 05-01-2024 WBC (Bld) [#/Vol] 6.2 10*3/uL 4.4-11.0 [facility] Absolute lymphocyte countOrd ered By: Chente Conn on 04-03-2024 Lymphocytes Auto (Unsp spec) [#/Vol] 2.12 10*3/uL 0.83-4.51 [facility] Absolute neutrophil countOrd ered By: Chente Conn on 04-03-2024 Neutrophils (Bld) [#/Vol] 2.2 10*3/uL 2.0-7.7 [facility] Automated lymphocyte count a s percentage of total leukocytesOrdered By: Chente Conn on 04-03-2024 Lymphocytes/100 WBC Auto (Unsp spec) 41.2 % High 19-41 [facility] Basophil percentageOrdered B y: Chente Conn on 04-03-2024 Basophils/100 WBC (Bld) 0.2 % 0-1 [facility] Blood urea nitrogen (BUN)/cr eatinine ratioOrdered By: Chente Conn on 04-03-2024 Urea nitrogen/Creatinine [Mass ratio] 52.6 mg/mg High 10-20 [facility] Carbon dioxide measurementOr dered By: Chente Conn on 04-03-2024 CO2 [Moles/Vol] 32.0 mmol/L 21.0-32.0 [facility] Chloride measurementOrdered By: Chente Conn on 04-03-2024 Chloride [Moles/Vol] 102 mmol/L 98-107 [facility] Eosinophil percentageOrdered By: Chente Conn on 04-03-2024 Eosinophils/100 WBC (Bld) 4.9 % 0-5 [facility] Erythrocyte distribution wid th ratioOrdered By: Chente Conn on 04-03-2024 Erythrocyte distribution width (RBC) [Ratio] 15.6 % High 11.6-14.6 [facility] Erythrocyte distribution wid th standard deviationOrdered By: Chente Conn on 04-03-2024 Erythrocyte distribution width (RBC) [Entitic vol] 46.3 fL High 35.1-43.9 [facility] Erythrocyte distribution width (RBC) [Ratio] 46.3 fl High 35.1-43.9 [facility] Estimated glomerular filtrat ion rate (GFR) AmericanOrdered By: Chente Conn on 04-03-2024 Estimated GFR (MDRD) Amer 641 mL/min >60 [facility] Comment on above: GFR Calc Glomerular filtration rate ( GFR) estimationOrdered By: Chente Conn on 04-03-2024 Estimated GFR (MDRD) Non-Af Amer 530 mL/min >60 [facility] Comment on above: Non- GFR Calc GFR/1.73 sq M.predicted among non-blacks MDRD (S/P/Bld) [Vol rate/Area] 530 mL/min/{1.73_m2} >60 [facility] Comment on above: Non- GFR Calc Glucose measurementOrdered B y: Chente Conn on 04-03-2024 Glucose [Mass/Vol] 87 mg/dL 74-106 [facility] Hematocrit Auto (Bld) [Volum e fraction]Ordered By: Chente Conn on 04-03-2024 Hematocrit (Bld) [Volume fraction] 30.9 % Low 40-54 [facility] Hemoglobin measurementOrdere d By: Chente Conn on 04-03-2024 Hemoglobin (Bld) [Mass/Vol] 9.8 g/dL Low 13.0-16.5 [facility] Immature granulocytes/100 WB C Auto (Bld)Ordered By: Chente Conn on 04-03-2024 Immature granulocytes/100 WBC (Bld) 0.200 % 0.0-0.9 [facility] Comment on above: IG% - Immature Granu locytes (promyelocytes, myelocytes and metamyelocytes) > 1% indicates that a LEFT SHIFT is Present. Lymphocytes Auto (Unsp spec) [#/Vol]Ordered By: Chente Conn on 04-03-2024 Lymphocytes (Bld) [#/Vol] 2.12 10*3/uL 0.83-4.5 1 [facility] Lymphocytes/100 WBC Auto (Un sp spec)Ordered By: Chente Conn on 04-03-2024 Lymphocytes/100 WBC (Bld) 41.2 % High 19-41 [facility] MCV (mean corpuscular volume ) determinationOrdered By: Chente Conn on 04-03-2024 MCV (RBC) [Entitic vol] 82.8 fL 80-94 [facility] Mean corpuscular hemoglobin (MCH) determinationOrdered By: Chente Conn on 04-03-2024 MCH (RBC) [Entitic mass] 26.3 pg Low 27.0-32.0 [facility] Mean corpuscular hemoglobin concentration (MCHC) determinationOrdered By: Chente Conn on 04-03-2024 MCHC (RBC) [Mass/Vol] 31.7 g/dL Low 32-36 [facility] Mean platelet volume determi nationOrdered By: Chente Conn on 04-03-2024 Platelet mean volume (Bld) [Entitic vol] 9.8 fL 6.2-12.0 [facility] Monocyte percentageOrdered B y: Chente Conn on 04-03-2024 Monocytes/100 WBC (Bld) 10.9 % High 0-10 [facility] Neutrophil percentageOrdered By: Chente Conn on 04-03-2024 Neutrophils/100 WBC (Bld) 42.6 % Low 47-70 [facility] Nucleated red blood cell per centageOrdered By: Chente Conn on 04-03-2024 Nucleated RBC/100 WBC (Bld) [Ratio] 0 % 0-5 [facility] Platelet countOrdered By: Areli Conn on 04-03-2024 Platelets (Bld) [#/Vol] 170 10*3/uL 150-450 [facility] Potassium measurementOrdered By: Chente Conn on 04-03-2024 Potassium [Moles/Vol] 3.8 mmol/L 3.5-5.1 [facility] RBC Auto (Bld) [#/Vol]Ordere d By: Chente Conn on 04-03-2024 RBC (Bld) [#/Vol] 3.73 10*6/uL Low 4.6-6.2 [facility] Serum anion gap measurementO rdered By: Chente Conn on 04-03-2024 Anion gap [Moles/Vol] 5 mmol/L 5-15 [facility] Serum or plasma calcium jacinta urement (mass/volume)Ordered By: Chente Conn on 04-03-2024 Calcium [Mass/Vol] 8.4 mg/dL Low 8.5-10.1 [facility] Serum or plasma creatinine m easurement (mass/volume)Ordered By: Chente Conn on 04-03-2024 Creatinine [Mass/Vol] 0.21 mg/dL Low 0.70-1.30 [facility] Comment on above: The validity of the calculated GFR & GFRAA in patients over 70 years has not been determined. Clinical correlation is essential. Serum or plasma urea nitroge n measurement (mass/volume)Ordered By: Chente Conn on 04-03-2024 Urea nitrogen [Mass/Vol] 11 mg/dL 7-18 [facility] Sodium levelOrdered By: Chente Conn on 04-03-2024 Sodium [Moles/Vol] 138 mmol/L 136-145 [facility] White blood cell (WBC) count Ordered By: Chente Conn on 04-03-2024 WBC (Bld) [#/Vol] 5.1 10*3/uL 4.4-11.0 [facility] Absolute lymphocyte countOrd ered By: Chente Conn on 03-08-2024 Lymphocytes Auto (Unsp spec) [#/Vol] 1.74 10*3/uL 0.83-4.51 [facility] Absolute neutrophil countOrd ered By: Chenet Conn on 03-08-2024 Neutrophils (Bld) [#/Vol] 2.6 10*3/uL 2.0-7.7 [facility] Automated lymphocyte count a s percentage of total leukocytesOrdered By: Chente Conn on 03-08-2024 Lymphocytes/100 WBC Auto (Unsp spec) 33.7 % 19-41 [facility] Basophil percentageOrdered B y: Chente Conn on 03-08-2024 Basophils/100 WBC (Bld) 0.2 % 0-1 [facility] Blood urea nitrogen (BUN)/cr eatinine ratioOrdered By: Chente Conn on 03-08-2024 Urea nitrogen/Creatinine [Mass ratio] 53.2 mg/mg High 10-20 [facility] Carbon dioxide measurementOr dered By: Chente Conn on 03-08-2024 CO2 [Moles/Vol] 31.0 mmol/L 21.0-32.0 [facility] Chloride measurementOrdered By: Chente Conn on 03-08-2024 Chloride [Moles/Vol] 102 mmol/L 98-107 [facility] Eosinophil percentageOrdered By: Chente Conn on 03-08-2024 Eosinophils/100 WBC (Bld) 5.8 % High 0-5 [facility] Erythrocyte distribution wid th ratioOrdered By: Chente Conn on 03-08-2024 Erythrocyte distribution width (RBC) [Ratio] 14.4 % 11.6-14.6 [facility] Erythrocyte distribution wid th standard deviationOrdered By: Chente Conn on 03-08-2024 Erythrocyte distribution width (RBC) [Entitic vol] 43.7 fL 35.1-43.9 [facility] Erythrocyte distribution width (RBC) [Ratio] 43.7 fl 35.1-43.9 [facility] Estimated glomerular filtrat ion rate (GFR) AmericanOrdered By: Chente Conn on 03-08-2024 Estimated GFR (MDRD) Amer 454 mL/min >60 [facility] Comment on above: GFR Calc Glomerular filtration rate ( GFR) estimationOrdered By: Chente Conn on 03-08-2024 Estimated GFR (MDRD) Non-Af Amer 375 mL/min >60 [facility] Comment on above: Non- GFR Calc GFR/1.73 sq M.predicted among non-blacks MDRD (S/P/Bld) [Vol rate/Area] 375 mL/min/{1.73_m2} >60 [facility] Comment on above: Non- GFR Calc Glucose measurementOrdered B y: Chente Conn on 03-08-2024 Glucose [Mass/Vol] 112 mg/dL High 74-106 [facility] Comment on above: Fasting Glucose resu lt from 100 to 125 mg/dL suggests IMPAIRED HOMEOSTASIS per A.D.A. criteria. Hematocrit Auto (Bld) [Volum e fraction]Ordered By: Chente Conn on 03-08-2024 Hematocrit (Bld) [Volume fraction] 31.3 % Low 40-54 [facility] Hemoglobin measurementOrdere d By: Chente Conn on 03-08-2024 Hemoglobin (Bld) [Mass/Vol] 9.7 g/dL Low 13.0-16.5 [facility] Immature granulocytes/100 WB C Auto (Bld)Ordered By: Chente Conn on 03-08-2024 Immature granulocytes/100 WBC (Bld) 0.200 % 0.0-0.9 [facility] Comment on above: IG% - Immature Granu locytes (promyelocytes, myelocytes and metamyelocytes) > 1% indicates that a LEFT SHIFT is Present. Lymphocytes Auto (Unsp spec) [#/Vol]Ordered By: Chente Conn on 03-08-2024 Lymphocytes (Bld) [#/Vol] 1.74 10*3/uL 0.83-4.5 1 [facility] Lymphocytes/100 WBC Auto (Un sp spec)Ordered By: Chente Conn on 03-08-2024 Lymphocytes/100 WBC (Bld) 33.7 % 19-41 [facility] MCV (mean corpuscular volume ) determinationOrdered By: Chente Conn on 03-08-2024 MCV (RBC) [Entitic vol] 83.7 fL 80-94 [facility] Mean corpuscular hemoglobin (MCH) determinationOrdered By: Chente Conn on 03-08-2024 MCH (RBC) [Entitic mass] 25.9 pg Low 27.0-32.0 [facility] Mean corpuscular hemoglobin concentration (MCHC) determinationOrdered By: Chente Conn on 03-08-2024 MCHC (RBC) [Mass/Vol] 31.0 g/dL Low 32-36 [facility] Mean platelet volume determi nationOrdered By: Chente Conn on 03-08-2024 Platelet mean volume (Bld) [Entitic vol] 10.7 fL 6.2-12.0 [facility] Monocyte percentageOrdered B y: Chente Conn on 03-08-2024 Monocytes/100 WBC (Bld) 9.7 % 0-10 [facility] Neutrophil percentageOrdered By: Chente Conn on 03-08-2024 Neutrophils/100 WBC (Bld) 50.4 % 47-70 [facility] Nucleated red blood cell per centageOrdered By: Chente Conn on 03-08-2024 Nucleated RBC/100 WBC (Bld) [Ratio] 0 % 0-5 [facility] Platelet countOrdered By: Areli Conn on 03-08-2024 Platelets (Bld) [#/Vol] 177 10*3/uL 150-450 [facility] Potassium measurementOrdered By: Chente Conn on 03-08-2024 Potassium [Moles/Vol] 3.5 mmol/L 3.5-5.1 [facility] RBC Auto (Bld) [#/Vol]Ordere d By: Chente Conn on 03-08-2024 RBC (Bld) [#/Vol] 3.74 10*6/uL Low 4.6-6.2 [facility] Serum anion gap measurementO rdered By: Chente Conn on 03-08-2024 Anion gap [Moles/Vol] 5 mmol/L 5-15 [facility] Serum or plasma calcium jacinta urement (mass/volume)Ordered By: Chente Conn on 03-08-2024 Calcium [Mass/Vol] 8.3 mg/dL Low 8.5-10.1 [facility] Serum or plasma creatinine m easurement (mass/volume)Ordered By: Chente Conn on 03-08-2024 Creatinine [Mass/Vol] 0.28 mg/dL Low 0.70-1.30 [facility] Comment on above: The validity of the calculated GFR & GFRAA in patients over 70 years has not been determined. Clinical correlation is essential. Serum or plasma urea nitroge n measurement (mass/volume)Ordered By: Chente Conn on 03-08-2024 Urea nitrogen [Mass/Vol] 15 mg/dL 7-18 [facility] Sodium levelOrdered By: Chente Conn on 03-08-2024 Sodium [Moles/Vol] 139 mmol/L 136-145 [facility] White blood cell (WBC) count Ordered By: Chente Conn on 03-08-2024 WBC (Bld) [#/Vol] 5.2 10*3/uL 4.4-11.0 [facility] Absolute neutrophil countOrd ered By: Chente Conn on 02-24-2024 Neutrophils (Bld) [#/Vol] 2.3 10*3/uL 2.0-7.7 [facility] Basophil percentageOrdered B y: Chente Conn on 02-24-2024 Basophils/100 WBC (Bld) 0.2 % 0-1 [facility] Blood urea nitrogen (BUN)/cr eatinine ratioOrdered By: Chente Conn on 02-24-2024 Urea nitrogen/Creatinine [Mass ratio] 53.8 mg/mg High 10-20 [facility] Carbon dioxide measurementOr dered By: Chente Conn on 02-24-2024 CO2 [Moles/Vol] 29.0 mmol/L 21.0-32.0 [facility] Chloride measurementOrdered By: Chente Conn on 02-24-2024 Chloride [Moles/Vol] 104 mmol/L 98-107 [facility] Eosinophil percentageOrdered By: Chente Conn on 02-24-2024 Eosinophils/100 WBC (Bld) 5.8 % High 0-5 [facility] Erythrocyte distribution wid th ratioOrdered By: Chente Conn on 02-24-2024 Erythrocyte distribution width (RBC) [Ratio] 14.1 % 11.6-14.6 [facility] Erythrocyte distribution wid th standard deviationOrdered By: Chente Conn on 02-24-2024 Erythrocyte distribution width (RBC) [Entitic vol] 43.2 fL 35.1-43.9 [facility] Estimated glomerular filtrat ion rate (GFR) AmericanOrdered By: Chente Conn on 02-24-2024 Estimated GFR (MDRD) Amer 460 mL/min >60 [facility] Comment on above: GFR Calc Glomerular filtration rate ( GFR) estimationOrdered By: Chente Conn on 02-24-2024 Estimated GFR (MDRD) Non-Af Amer 380 mL/min >60 [facility] Comment on above: Non- GFR Calc Glucose measurementOrdered B y: Chente Conn on 02-24-2024 Glucose [Mass/Vol] 102 mg/dL 74-106 [facility] Comment on above: Fasting Glucose resu lt from 100 to 125 mg/dL suggests IMPAIRED HOMEOSTASIS per A.D.A. criteria. Hematocrit Auto (Bld) [Volum e fraction]Ordered By: Chente Conn on 02-24-2024 Hematocrit (Bld) [Volume fraction] 32.6 % Low 40-54 [facility] Hemoglobin measurementOrdere d By: Chente Conn on 02-24-2024 Hemoglobin (Bld) [Mass/Vol] 9.8 g/dL Low 13.0-16.5 [facility] Immature granulocytes/100 WB C Auto (Bld)Ordered By: Chente Conn on 02-24-2024 Immature granulocytes/100 WBC (Bld) 0.200 % 0.0-0.9 [facility] Comment on above: IG% - Immature Granu locytes (promyelocytes, myelocytes and metamyelocytes) > 1% indicates that a LEFT SHIFT is Present. Lymphocytes Auto (Unsp spec) [#/Vol]Ordered By: Chente Conn on 02-24-2024 Lymphocytes (Bld) [#/Vol] 1.93 10*3/uL 0.83-4.5 1 [facility] Lymphocytes/100 WBC Auto (Un sp spec)Ordered By: Chente Conn on 02-24-2024 Lymphocytes/100 WBC (Bld) 38.5 % 19-41 [facility] MCV (mean corpuscular volume ) determinationOrdered By: Chente Conn on 02-24-2024 MCV (RBC) [Entitic vol] 84.9 fL 80-94 [facility] Mean corpuscular hemoglobin (MCH) determinationOrdered By: Chente Conn on 02-24-2024 MCH (RBC) [Entitic mass] 25.5 pg Low 27.0-32.0 [facility] Mean corpuscular hemoglobin concentration (MCHC) determinationOrdered By: Chente Conn on 02-24-2024 MCHC (RBC) [Mass/Vol] 30.1 g/dL Low 32-36 [facility] Mean platelet volume determi nationOrdered By: Chente Conn on 02-24-2024 Platelet mean volume (Bld) [Entitic vol] 9.9 fL 6.2-12.0 [facility] Monocyte percentageOrdered B y: Chente Conn on 02-24-2024 Monocytes/100 WBC (Bld) 8.8 % 0-10 [facility] Neutrophil percentageOrdered By: Chente Conn on 02-24-2024 Neutrophils/100 WBC (Bld) 46.5 % Low 47-70 [facility] Nucleated red blood cell per centageOrdered By: Chente Conn on 02-24-2024 Nucleated RBC/100 WBC (Bld) [Ratio] 0 % 0-5 [facility] Platelet countOrdered By: Areli Conn on 02-24-2024 Platelets (Bld) [#/Vol] 209 10*3/uL 150-450 [facility] Potassium measurementOrdered By: Chente Conn on 02-24-2024 Potassium [Moles/Vol] 3.7 mmol/L 3.5-5.1 [facility] RBC Auto (Bld) [#/Vol]Ordere d By: Chente Conn on 02-24-2024 RBC (Bld) [#/Vol] 3.84 10*6/uL Low 4.6-6.2 [facility] Serum anion gap measurementO rdered By: Chente Conn on 02-24-2024 Anion gap [Moles/Vol] 6 mmol/L 5-15 [facility] Serum or plasma calcium jacinta urement (mass/volume)Ordered By: Chente Conn on 02-24-2024 Calcium [Mass/Vol] 8.2 mg/dL Low 8.5-10.1 [facility] Serum or plasma creatinine m easurement (mass/volume)Ordered By: Chente Conn on 02-24-2024 Creatinine [Mass/Vol] 0.28 mg/dL Low 0.70-1.30 [facility] Comment on above: The validity of the calculated GFR & GFRAA in patients over 70 years has not been determined. Clinical correlation is essential. Serum or plasma urea nitroge n measurement (mass/volume)Ordered By: Chente Conn on 02-24-2024 Urea nitrogen [Mass/Vol] 15 mg/dL 7-18 [facility] Sodium levelOrdered By: Chente Conn on 02-24-2024 Sodium [Moles/Vol] 138 mmol/L 136-145 [facility] White blood cell (WBC) count Ordered By: Chente Conn on 02-24-2024 WBC (Bld) [#/Vol] 5.0 10*3/uL 4.4-11.0 [facility] Absolute neutrophil countOrd ered By: Racquel Moss on 2024 Neutrophils (Bld) [#/Vol] 5.0 10*3/uL 2.0-7.7 [facility] Basophil percentageOrdered B y: Racquel Moss on 2024 Basophils/100 WBC (Bld) 0.2 % 0-1 [facility] Blood cultureOrdered By: Jessi Moss on 2024 Bacteria identified Cx Nom (Bld) No growth in 5 days. [facility] Blood urea nitrogen (BUN)/cr eatinine ratioOrdered By: Racquel Moss on 2024 Urea nitrogen/Creatinine [Mass ratio] 24.2 mg/mg High 10-20 [facility] C-reactive protein measureme nt by high sensitivity methodOrdered By: Racquel Moss on 2024 C-Reactive Protein Extended Range 73.50 mg/L High 0.0-3.0 [facility] Comment on above: C-Reactive Protein ( CRP) provides useful information for thediagnosis, therapy and monitoring of inflammatory processesand associated diseases. For the evaluation of Relative Riskfor Cardiovascular Disease, a High Sensitivity CRP (HSCRP)should be ordered. Carbon dioxide measurementOr dered By: Racquel Moss on 2024 CO2 [Moles/Vol] 30.0 mmol/L 21.0-32.0 [facility] Chloride measurementOrdered By: Racquel Moss on 2024 Chloride [Moles/Vol] 100 mmol/L 98-107 [facility] Eosinophil percentageOrdered By: Racquel Moss on 2024 Eosinophils/100 WBC (Bld) 0.6 % 0-5 [facility] Erythrocyte distribution wid th ratioOrdered By: Remus Moss on 2024 Erythrocyte distribution width (RBC) [Ratio] 13.8 % 11.6-14.6 [facility] Erythrocyte distribution wid th standard deviationOrdered By: Remus Moss on 2024 Erythrocyte distribution width (RBC) [Entitic vol] 42.7 fL 35.1-43.9 [facility] Erythrocyte sedimentation ra teOrdered By: Remus Unggilles on 2024 ESR (Bld) [Velocity] 47 mm/h High 0-20 [facility] Estimated glomerular filtrat ion rate (GFR) AmericanOrdered By: Remus Unggilles on 2024 Estimated GFR (MDRD) Amer 379 mL/min >60 [facility] Comment on above: GFR Calc Estimation of creatinine poly aranceOrdered By: Racquel Moss on 2024 Estimated Creatinine Clearance Calc 265.33 ml/min [facility] Glomerular filtration rate ( GFR) estimationOrdered By: Racquel Moss on 2024 Estimated GFR (MDRD) Non-Af Amer 313 mL/min >60 [facility] Comment on above: Non- GFR Calc Glucose measurementOrdered B y: Racquel Moss on 2024 Glucose [Mass/Vol] 117 mg/dL High 74-106 [facility] Comment on above: Fasting Glucose resu lt from 100 to 125 mg/dL suggests IMPAIRED HOMEOSTASIS per A.D.A. criteria. Hematocrit Auto (Bld) [Volum e fraction]Ordered By: Racquel Moss on 2024 Hematocrit (Bld) [Volume fraction] 33.5 % Low 40-54 [facility] Hemoglobin measurementOrdere d By: Racquel Moss on 2024 Hemoglobin (Bld) [Mass/Vol] 10.8 g/dL Low 13.0-16.5 [facility] Immature granulocytes/100 WB C Auto (Bld)Ordered By: Racquel Moss on 2024 Immature granulocytes/100 WBC (Bld) 0.600 % 0.0-0.9 [facility] Comment on above: IG% - Immature Granu locytes (promyelocytes, myelocytes and metamyelocytes) > 1% indicates that a LEFT SHIFT is Present. Lactic acid measurementOrder ed By: Racquel Moss on 2024 Lactate [Moles/Vol] 2.0 mmol/L 0.4-2.0 [facility] Comment on above: Critical Result(s) C alled at: 18:05:46 2024 by: SHONDA REAVES. Results read back by Lakesha Steven Lymphocytes Auto (Unsp spec) [#/Vol]Ordered By: Racquel Moss on 2024 Lymphocytes (Bld) [#/Vol] 0.82 10*3/uL Low 0.83-4.5 1 [facility] Lymphocytes/100 WBC Auto (Un sp spec)Ordered By: Racquel Moss on 2024 Lymphocytes/100 WBC (Bld) 12.4 % Low 19-41 [facility] MCV (mean corpuscular volume ) determinationOrdered By: Remus Moss on 2024 MCV (RBC) [Entitic vol] 84.6 fL 80-94 [facility] Mean corpuscular hemoglobin (MCH) determinationOrdered By: Rem Unggilles on 2024 MCH (RBC) [Entitic mass] 27.3 pg 27.0-32.0 [facility] Mean corpuscular hemoglobin concentration (MCHC) determinationOrdered By: Rem Unggilles on 2024 MCHC (RBC) [Mass/Vol] 32.2 g/dL 32-36 [facility] Mean platelet volume determi nationOrdered By: Racquel Moss on 2024 Platelet mean volume (Bld) [Entitic vol] 10.0 fL 6.2-12.0 [facility] Monocyte percentageOrdered B y: Remus Moss on 2024 Monocytes/100 WBC (Bld) 11.2 % High 0-10 [facility] Neutrophil percentageOrdered By: Remus Moss on 2024 Neutrophils/100 WBC (Bld) 75.0 % High 47-70 [facility] Nucleated red blood cell per centageOrdered By: Racquel Moss on 2024 Nucleated RBC/100 WBC (Bld) [Ratio] 0 % 0-5 [facility] Platelet countOrdered By: Carmen Moss on 2024 Platelets (Bld) [#/Vol] 113 10*3/uL Low 150-450 [facility] Potassium measurementOrdered By: Racquel Moss on 2024 Potassium [Moles/Vol] 4.0 mmol/L 3.5-5.1 [facility] RBC Auto (Bld) [#/Vol]Ordere d By: Racquel Unggilles on 2024 RBC (Bld) [#/Vol] 3.96 10*6/uL Low 4.6-6.2 [facility] Serum anion gap measurementO rdered By: Racquel Moss on 2024 Anion gap [Moles/Vol] 4 mmol/L Low 5-15 [facility] Serum or plasma calcium jacinta urement (mass/volume)Ordered By: Racquel Moss on 2024 Calcium [Mass/Vol] 8.9 mg/dL 8.5-10.1 [facility] Serum or plasma creatinine m easurement (mass/volume)Ordered By: Racquel Moss on 2024 Creatinine [Mass/Vol] 0.33 mg/dL Low 0.70-1.30 [facility] Comment on above: The validity of the calculated GFR & GFRAA in patients over 70 years has not been determined. Clinical correlation is essential. Serum or plasma urea nitroge n measurement (mass/volume)Ordered By: Racquel Moss on 2024 Urea nitrogen [Mass/Vol] 8 mg/dL 7-18 [facility] Sodium levelOrdered By: Vinny Moss on 2024 Sodium [Moles/Vol] 135 mmol/L Low 136-145 [facility] White blood cell (WBC) count Ordered By: Racquel Moss on 2024 WBC (Bld) [#/Vol] 6.6 10*3/uL 4.4-11.0 [facility] Absolute neutrophil countOrd ered By: Chente Conn on 01-27-2024 Neutrophils (Bld) [#/Vol] 2.2 10*3/uL 2.0-7.7 [facility] Basophil percentageOrdered B y: Chente Conn on 01-27-2024 Basophils/100 WBC (Bld) 0.5 % 0-1 [facility] Blood urea nitrogen (BUN)/cr eatinine ratioOrdered By: Chente Conn on 01-27-2024 Urea nitrogen/Creatinine [Mass ratio] 43.3 mg/mg High 10-20 [facility] Carbon dioxide measurementOr dered By: Chente Conn on 01-27-2024 CO2 [Moles/Vol] 30.0 mmol/L 21.0-32.0 [facility] Chloride measurementOrdered By: Chente Conn on 01-27-2024 Chloride [Moles/Vol] 103 mmol/L 98-107 [facility] Eosinophil percentageOrdered By: Chente Conn on 01-27-2024 Eosinophils/100 WBC (Bld) 4.7 % 0-5 [facility] Erythrocyte distribution wid th ratioOrdered By: Chente Conn on 01-27-2024 Erythrocyte distribution width (RBC) [Ratio] 14.2 % 11.6-14.6 [facility] Erythrocyte distribution wid th standard deviationOrdered By: Chente Conn on 01-27-2024 Erythrocyte distribution width (RBC) [Entitic vol] 44.8 fL High 35.1-43.9 [facility] Estimated glomerular filtrat ion rate (GFR) AmericanOrdered By: Chente Conn on 01-27-2024 Estimated GFR (MDRD) Amer 388 mL/min >60 [facility] Comment on above: GFR Calc Glomerular filtration rate ( GFR) estimationOrdered By: Chente Conn on 01-27-2024 Estimated GFR (MDRD) Non-Af Amer 321 mL/min >60 [facility] Comment on above: Non- GFR Calc Glucose measurementOrdered B y: Chente Conn on 01-27-2024 Glucose [Mass/Vol] 99 mg/dL 74-106 [facility] Hematocrit Auto (Bld) [Volum e fraction]Ordered By: Chente Conn on 01-27-2024 Hematocrit (Bld) [Volume fraction] 33.6 % Low 40-54 [facility] Hemoglobin measurementOrdere d By: Chente Conn on 01-27-2024 Hemoglobin (Bld) [Mass/Vol] 10.5 g/dL Low 13.0-16.5 [facility] Immature granulocytes/100 WB C Auto (Bld)Ordered By: Chente Conn on 01-27-2024 Immature granulocytes/100 WBC (Bld) 0.000 % 0.0-0.9 [facility] Comment on above: IG% - Immature Granu locytes (promyelocytes, myelocytes and metamyelocytes) > 1% indicates that a LEFT SHIFT is Present. Lymphocytes Auto (Unsp spec) [#/Vol]Ordered By: Chente Conn on 01-27-2024 Lymphocytes (Bld) [#/Vol] 1.16 10*3/uL 0.83-4.5 1 [facility] Lymphocytes/100 WBC Auto (Un sp spec)Ordered By: Chente Conn on 01-27-2024 Lymphocytes/100 WBC (Bld) 28.9 % 19-41 [facility] MCV (mean corpuscular volume ) determinationOrdered By: Chente Conn on 01-27-2024 MCV (RBC) [Entitic vol] 85.9 fL 80-94 [facility] Mean corpuscular hemoglobin (MCH) determinationOrdered By: Chente Conn on 01-27-2024 MCH (RBC) [Entitic mass] 26.9 pg Low 27.0-32.0 [facility] Mean corpuscular hemoglobin concentration (MCHC) determinationOrdered By: Chente Conn on 01-27-2024 MCHC (RBC) [Mass/Vol] 31.3 g/dL Low 32-36 [facility] Mean platelet volume determi nationOrdered By: Chente Conn on 01-27-2024 Platelet mean volume (Bld) [Entitic vol] 10.3 fL 6.2-12.0 [facility] Monocyte percentageOrdered B y: Chente Conn on 01-27-2024 Monocytes/100 WBC (Bld) 10.2 % High 0-10 [facility] Neutrophil percentageOrdered By: Chente Conn on 01-27-2024 Neutrophils/100 WBC (Bld) 55.7 % 47-70 [facility] Nucleated red blood cell per centageOrdered By: Chente Conn on 01-27-2024 Nucleated RBC/100 WBC (Bld) [Ratio] 0 % 0-5 [facility] Platelet countOrdered By: Areli Conn on 01-27-2024 Platelets (Bld) [#/Vol] 161 10*3/uL 150-450 [facility] Potassium measurementOrdered By: Chente Conn on 01-27-2024 Potassium [Moles/Vol] 4.0 mmol/L 3.5-5.1 [facility] RBC Auto (Bld) [#/Vol]Ordere d By: hCente Conn on 01-27-2024 RBC (Bld) [#/Vol] 3.91 10*6/uL Low 4.6-6.2 [facility] Serum anion gap measurementO rdered By: Chente Conn on 01-27-2024 Anion gap [Moles/Vol] 7 mmol/L 5-15 [facility] Serum or plasma calcium jacinta urement (mass/volume)Ordered By: Chente Conn on 01-27-2024 Calcium [Mass/Vol] 9.0 mg/dL 8.5-10.1 [facility] Serum or plasma creatinine m easurement (mass/volume)Ordered By: Chente Conn on 01-27-2024 Creatinine [Mass/Vol] 0.32 mg/dL Low 0.70-1.30 [facility] Comment on above: The validity of the calculated GFR & GFRAA in patients over 70 years has not been determined. Clinical correlation is essential. Serum or plasma urea nitroge n measurement (mass/volume)Ordered By: Chente Conn on 01-27-2024 Urea nitrogen [Mass/Vol] 14 mg/dL 7-18 [facility] Sodium levelOrdered By: Chente Conn on 01-27-2024 Sodium [Moles/Vol] 140 mmol/L 136-145 [facility] White blood cell (WBC) count Ordered By: Chente Conn on 01-27-2024 WBC (Bld) [#/Vol] 4.0 10*3/uL Low 4.4-11.0 [facility] Absolute lymphocyte countOrd ered By: Torey Huffman on 06-14-2023 Lymphocytes Auto (Unsp spec) [#/Vol] 2.38 10*3/uL 0.83-4.51 [facility] Automated lymphocyte count a s percentage of total leukocytesOrdered By: Torey Huffman on 06-14-2023 Lymphocytes/100 WBC Auto (Unsp spec) 35.4 % 19-41 [facility] Basophil percentageOrdered B y: Torey Huffman on 06-14-2023 Basophils/100 WBC (Bld) 0.3 % 0-1 [facility] Chloride [Moles/Vol] 104 mmol/L 98-107 [facility] Eosinophils/100 WBC (Bld) 4.3 % 0-5 [facility] Glucose [Mass/Vol] 101 mg/dL 74-106 [facility] Comment on above: Fasting Glucose resu lt from 100 to 125 mg/dL suggests IMPAIRED HOMEOSTASIS per A.D.A. criteria. Hemoglobin (Bld) [Mass/Vol] 11.2 g/dL 13.0-16.5 [facility] Monocytes/100 WBC (Bld) 9.4 % 0-10 [facility] Neutrophils (Bld) [#/Vol] 3.4 10*3/uL 2.0-7.7 [facility] Neutrophils/100 WBC (Bld) 50.5 % 47-70 [facility] Potassium [Moles/Vol] 3.7 mmol/L 3.5-5.1 [facility] Sodium [Moles/Vol] 139 mmol/L 136-145 [facility] WBC (Bld) [#/Vol] 6.7 10*3/uL 4.4-11.0 [facility] Determination of erythrocyte mean corpuscular volume (MCV)Ordered By: Torey Huffman on 06-14-2023 MCV (RBC) [Entitic vol] 83.3 fL 80-94 [facility] Erythrocyte distribution wid th ratioOrdered By: Torey Huffman on 06-14-2023 Erythrocyte distribution width (RBC) [Ratio] 14.7 % 11.6-14.6 [facility] Erythrocyte distribution wid th standard deviationOrdered By: Torey Huffman on 06-14-2023 Erythrocyte distribution width (RBC) [Entitic vol] 44.5 fL 35.1-43.9 [facility] Hematocrit Auto (Bld) [Volum e fraction]Ordered By: Torey Huffman on 06-14-2023 Hematocrit (Bld) [Volume fraction] 34.4 % 40-54 [facility] Immature granulocytes/100 WB C Auto (Bld)Ordered By: Torey Huffman on 06-14-2023 Immature granulocytes/100 WBC (Bld) 0.100 % 0.0-0.9 [facility] Comment on above: IG% - Immature Granu locytes (promyelocytes, myelocytes and metamyelocytes) > 1% indicates that a LEFT SHIFT is Present. Laboratory - Chemistry and C hemistry - challengeOrdered By: Torey Huffman on 06-14-2023 CO2 [Moles/Vol] 31.0 mmol/L 21.0-32.0 [facility] Urea nitrogen/Creatinine [Mass ratio] 43.2 mg/mg 10-20 [facility] Laboratory - Hematology and Cell countsOrdered By: Torey Huffman on 06-14-2023 MCH (RBC) [Entitic mass] 27.1 pg 27.0-32.0 [facility] MCHC (RBC) [Mass/Vol] 32.6 g/dL 32-36 [facility] Nucleated RBC/100 WBC (Bld) [Ratio] 0 % 0-5 [facility] Platelet mean volume (Bld) [Entitic vol] 10.4 fL 6.2-12.0 [facility] Platelets (Bld) [#/Vol] 178 10*3/uL 150-450 [facility] No Panel InformationOrdered By: Torey Huffman on 06-14-2023 Estimated GFR (MDRD) Amer 423 mL/min >60 [facility] Comment on above: GFR Calc Estimated GFR (MDRD) Non-Af Amer 349 mL/min >60 [facility] Comment on above: Non- GFR Calc RBC Auto (Bld) [#/Vol]Ordere d By: Torey Huffman on 06-14-2023 RBC (Bld) [#/Vol] 4.13 10*6/uL 4.6-6.2 [facility] Serum or plasma calcium jacinta urement (mass/volume)Ordered By: Torey Huffman on 06-14-2023 Calcium [Mass/Vol] 8.3 mg/dL 8.5-10.1 [facility] Serum or plasma creatinine m easurement (mass/volume)Ordered By: Torey Huffman on 06-14-2023 Creatinine [Mass/Vol] 0.30 mg/dL 0.70-1.30 [facility] Comment on above: The validity of the calculated GFR & GFRAA in patients over 70 years has not been determined. Clinical correlation is essential. Serum or plasma urea nitroge n measurement (mass/volume)Ordered By: Torey Huffman on 06-14-2023 Urea nitrogen [Mass/Vol] 13 mg/dL 7-18 [facility] Thin prep Papanicolaou smear with manual screeningOrdered By: Toery Huffman on 06-14-2023 Thin prep Papanicolaou smear with manual screening 4 5-15 [facility] Absolute lymphocyte countOrd ered By: Torey Huffman on 05-17-2023 Lymphocytes Auto (Unsp spec) [#/Vol] 2.30 10*3/uL 0.83-4.51 [facility] Automated lymphocyte count a s percentage of total leukocytesOrdered By: Torey Huffman on 05-17-2023 Lymphocytes/100 WBC Auto (Unsp spec) 36.7 % 19-41 [facility] Basophil percentageOrdered B y: Torey Huffman on 05-17-2023 Basophils/100 WBC (Bld) 0.3 % 0-1 [facility] Chloride [Moles/Vol] 104 mmol/L 98-107 [facility] Eosinophils/100 WBC (Bld) 4.5 % 0-5 [facility] Glucose [Mass/Vol] 88 mg/dL 74-106 [facility] Hemoglobin (Bld) [Mass/Vol] 11.2 g/dL 13.0-16.5 [facility] Monocytes/100 WBC (Bld) 8.1 % 0-10 [facility] Neutrophils (Bld) [#/Vol] 3.1 10*3/uL 2.0-7.7 [facility] Neutrophils/100 WBC (Bld) 50.1 % 47-70 [facility] Potassium [Moles/Vol] 4.0 mmol/L 3.5-5.1 [facility] Sodium [Moles/Vol] 139 mmol/L 136-145 [facility] WBC (Bld) [#/Vol] 6.3 10*3/uL 4.4-11.0 [facility] Determination of erythrocyte mean corpuscular volume (MCV)Ordered By: Torey Huffman on 05-17-2023 MCV (RBC) [Entitic vol] 84.5 fL 80-94 [facility] Erythrocyte distribution wid th ratioOrdered By: Torey Huffman on 05-17-2023 Erythrocyte distribution width (RBC) [Ratio] 14.6 % 11.6-14.6 [facility] Erythrocyte distribution wid th standard deviationOrdered By: Torey Huffman on 05-17-2023 Erythrocyte distribution width (RBC) [Entitic vol] 45.0 fL 35.1-43.9 [facility] Hematocrit Auto (Bld) [Volum e fraction]Ordered By: Torey Huffman on 05-17-2023 Hematocrit (Bld) [Volume fraction] 36.6 % 40-54 [facility] Immature granulocytes/100 WB C Auto (Bld)Ordered By: Torey Huffman on 05-17-2023 Immature granulocytes/100 WBC (Bld) 0.300 % 0.0-0.9 [facility] Comment on above: IG% - Immature Granu locytes (promyelocytes, myelocytes and metamyelocytes) > 1% indicates that a LEFT SHIFT is Present. Laboratory - Chemistry and C hemistry - challengeOrdered By: Torey Huffman on 05-17-2023 CO2 [Moles/Vol] 31.0 mmol/L 21.0-32.0 [facility] Urea nitrogen/Creatinine [Mass ratio] 45.9 mg/mg 10-20 [facility] Laboratory - Hematology and Cell countsOrdered By: Torey Huffman on 05-17-2023 MCH (RBC) [Entitic mass] 25.9 pg 27.0-32.0 [facility] MCHC (RBC) [Mass/Vol] 30.6 g/dL 32-36 [facility] Nucleated RBC/100 WBC (Bld) [Ratio] 0 % 0-5 [facility] Platelet mean volume (Bld) [Entitic vol] 10.8 fL 6.2-12.0 [facility] Platelets (Bld) [#/Vol] 206 10*3/uL 150-450 [facility] No Panel InformationOrdered By: Torey Huffman on 05-17-2023 Estimated GFR (MDRD) Amer 416 mL/min >60 [facility] Comment on above: GFR Calc Estimated GFR (MDRD) Non-Af Amer 344 mL/min >60 [facility] Comment on above: Non- GFR Calc RBC Auto (Bld) [#/Vol]Ordere d By: Torey Huffman on 05-17-2023 RBC (Bld) [#/Vol] 4.33 10*6/uL 4.6-6.2 [facility] Serum or plasma calcium jacinta urement (mass/volume)Ordered By: Torey Huffman on 05-17-2023 Calcium [Mass/Vol] 8.6 mg/dL 8.5-10.1 [facility] Serum or plasma creatinine m easurement (mass/volume)Ordered By: Torey Huffman on 05-17-2023 Creatinine [Mass/Vol] 0.30 mg/dL 0.70-1.30 [facility] Comment on above: The validity of the calculated GFR & GFRAA in patients over 70 years has not been determined. Clinical correlation is essential. Serum or plasma urea nitroge n measurement (mass/volume)Ordered By: Torey Huffman on 05-17-2023 Urea nitrogen [Mass/Vol] 14 mg/dL 7-18 [facility] Thin prep Papanicolaou smear with manual screeningOrdered By: Torey Huffman on 05-17-2023 Thin prep Papanicolaou smear with manual screening 4 5-15 [facility] Absolute lymphocyte countOrd ered By: Torey Huffman on 04-19-2023 Lymphocytes Auto (Unsp spec) [#/Vol] 2.37 10*3/uL 0.83-4.51 [facility] Automated lymphocyte count a s percentage of total leukocytesOrdered By: Torey Huffman on 04-19-2023 Lymphocytes/100 WBC Auto (Unsp spec) 31.8 % 19-41 [facility] Basophil percentageOrdered B y: Torey Huffman on 04-19-2023 Basophils/100 WBC (Bld) 0.4 % 0-1 [facility] Chloride [Moles/Vol] 105 mmol/L 98-107 [facility] Eosinophils/100 WBC (Bld) 5.0 % 0-5 [facility] Glucose [Mass/Vol] 102 mg/dL 74-106 [facility] Comment on above: Fasting Glucose resu lt from 100 to 125 mg/dL suggests IMPAIRED HOMEOSTASIS per A.D.A. criteria. Hemoglobin (Bld) [Mass/Vol] 11.4 g/dL 13.0-16.5 [facility] Monocytes/100 WBC (Bld) 9.4 % 0-10 [facility] Neutrophils (Bld) [#/Vol] 4.0 10*3/uL 2.0-7.7 [facility] Neutrophils/100 WBC (Bld) 53.0 % 47-70 [facility] Potassium [Moles/Vol] 4.1 mmol/L 3.5-5.1 [facility] Sodium [Moles/Vol] 138 mmol/L 136-145 [facility] WBC (Bld) [#/Vol] 7.5 10*3/uL 4.4-11.0 [facility] Determination of erythrocyte mean corpuscular volume (MCV)Ordered By: Torey Huffman on 04-19-2023 MCV (RBC) [Entitic vol] 84.7 fL 80-94 [facility] Erythrocyte distribution wid th ratioOrdered By: Torey Huffman on 04-19-2023 Erythrocyte distribution width (RBC) [Ratio] 14.8 % 11.6-14.6 [facility] Erythrocyte distribution wid th standard deviationOrdered By: Torey Huffman on 04-19-2023 Erythrocyte distribution width (RBC) [Entitic vol] 45.9 fL 35.1-43.9 [facility] Hematocrit Auto (Bld) [Volum e fraction]Ordered By: Torey Huffman on 04-19-2023 Hematocrit (Bld) [Volume fraction] 37.2 % 40-54 [facility] Immature granulocytes/100 WB C Auto (Bld)Ordered By: Torey Huffman on 04-19-2023 Immature granulocytes/100 WBC (Bld) 0.400 % 0.0-0.9 [facility] Comment on above: IG% - Immature Granu locytes (promyelocytes, myelocytes and metamyelocytes) > 1% indicates that a LEFT SHIFT is Present. Laboratory - Chemistry and C hemistry - challengeOrdered By: Torey Huffman on 04-19-2023 CO2 [Moles/Vol] 28.0 mmol/L 21.0-32.0 [facility] Urea nitrogen/Creatinine [Mass ratio] 58.3 mg/mg 10-20 [facility] Laboratory - Hematology and Cell countsOrdered By: Torey Huffman on 04-19-2023 MCH (RBC) [Entitic mass] 26.0 pg 27.0-32.0 [facility] MCHC (RBC) [Mass/Vol] 30.6 g/dL 32-36 [facility] Nucleated RBC/100 WBC (Bld) [Ratio] 0 % 0-5 [facility] Platelet mean volume (Bld) [Entitic vol] 10.4 fL 6.2-12.0 [facility] Platelets (Bld) [#/Vol] 198 10*3/uL 150-450 [facility] No Panel InformationOrdered By: Torey Huffman on 04-19-2023 Estimated GFR (MDRD) Amer 410 mL/min >60 [facility] Comment on above: GFR Calc Estimated GFR (MDRD) Non-Af Amer 339 mL/min >60 [facility] Comment on above: Non- GFR Calc RBC Auto (Bld) [#/Vol]Ordere d By: Torey Huffman on 04-19-2023 RBC (Bld) [#/Vol] 4.39 10*6/uL 4.6-6.2 [facility] Serum or plasma calcium jacinta urement (mass/volume)Ordered By: Torey Huffman on 04-19-2023 Calcium [Mass/Vol] 8.8 mg/dL 8.5-10.1 [facility] Serum or plasma creatinine m easurement (mass/volume)Ordered By: Torey Huffman on 04-19-2023 Creatinine [Mass/Vol] 0.31 mg/dL 0.70-1.30 [facility] Comment on above: The validity of the calculated GFR & GFRAA in patients over 70 years has not been determined. Clinical correlation is essential. Serum or plasma urea nitroge n measurement (mass/volume)Ordered By: Torey Huffman on 04-19-2023 Urea nitrogen [Mass/Vol] 18 mg/dL 7-18 [facility] Thin prep Papanicolaou smear with manual screeningOrdered By: Torey Huffman on 04-19-2023 Thin prep Papanicolaou smear with manual screening 5 5-15 [facility] Absolute lymphocyte countOrd ered By: Antohny Russell on 04-13-2023 Lymphocytes Auto (Unsp spec) [#/Vol] 3.45 10*3/uL 0.83-4.51 [facility] Activated partial thrombopla stin time (aPTT) in platelet poor plasma by coagulation aOrdered By: Anthony Russell on 04-13-2023 aPTT Coag (PPP) [Time] 25.7 s 24.1-36.2 [facility] Automated lymphocyte count a s percentage of total leukocytesOrdered By: Anthony Russell on 04-13-2023 Lymphocytes/100 WBC Auto (Unsp spec) 43.5 % 19-41 [facility] Basophil percentageOrdered B y: Anthony Russell on 04-13-2023 Basophils/100 WBC (Bld) 0.5 % 0-1 [facility] Chloride [Moles/Vol] 103 mmol/L 98-107 [facility] Eosinophils/100 WBC (Bld) 3.7 % 0-5 [facility] Glucose [Mass/Vol] 116 mg/dL 74-106 [facility] Comment on above: Fasting Glucose resu lt from 100 to 125 mg/dL suggests IMPAIRED HOMEOSTASIS per A.D.A. criteria. Hemoglobin (Bld) [Mass/Vol] 12.4 g/dL 13.0-16.5 [facility] Monocytes/100 WBC (Bld) 7.8 % 0-10 [facility] Neutrophils (Bld) [#/Vol] 3.5 10*3/uL 2.0-7.7 [facility] Neutrophils/100 WBC (Bld) 44.2 % 47-70 [facility] Potassium [Moles/Vol] 4.0 mmol/L 3.5-5.1 [facility] Sodium [Moles/Vol] 137 mmol/L 136-145 [facility] WBC (Bld) [#/Vol] 7.9 10*3/uL 4.4-11.0 [facility] Determination of erythrocyte mean corpuscular volume (MCV)Ordered By: Anthony Russell on 04-13-2023 MCV (RBC) [Entitic vol] 82.9 fL 80-94 [facility] Erythrocyte distribution wid th ratioOrdered By: Anthony Russell on 04-13-2023 Erythrocyte distribution width (RBC) [Ratio] 14.9 % 11.6-14.6 [facility] Erythrocyte distribution wid th standard deviationOrdered By: Anthony Russell on 04-13-2023 Erythrocyte distribution width (RBC) [Entitic vol] 44.8 fL 35.1-43.9 [facility] Hematocrit Auto (Bld) [Volum e fraction]Ordered By: Anthony Russell on 04-13-2023 Hematocrit (Bld) [Volume fraction] 40.2 % 40-54 [facility] Immature granulocytes/100 WB C Auto (Bld)Ordered By: Anthony Russell on 04-13-2023 Immature granulocytes/100 WBC (Bld) 0.300 % 0.0-0.9 [facility] Comment on above: IG% - Immature Granu locytes (promyelocytes, myelocytes and metamyelocytes) > 1% indicates that a LEFT SHIFT is Present. Laboratory - Chemistry and C hemistry - challengeOrdered By: Anthony Russell on 04-13-2023 CO2 [Moles/Vol] 24.0 mmol/L 21.0-32.0 [facility] Urea nitrogen/Creatinine [Mass ratio] 39.7 mg/mg 10-20 [facility] Laboratory - CoagulationOrde red By: Anthony Russell on 04-13-2023 INR Coag (Bld) [Relative time] 1.0 {INR} [facility] PT Coag (PPP) [Time] 13.3 s 11.7-14.9 [facility] Laboratory - Hematology and Cell countsOrdered By: Anthony Russell on 04-13-2023 MCH (RBC) [Entitic mass] 25.6 pg 27.0-32.0 [facility] MCHC (RBC) [Mass/Vol] 30.8 g/dL 32-36 [facility] Nucleated RBC/100 WBC (Bld) [Ratio] 0 % 0-5 [facility] Platelet mean volume (Bld) [Entitic vol] 10.2 fL 6.2-12.0 [facility] Platelets (Bld) [#/Vol] 216 10*3/uL 150-450 [facility] No Panel InformationOrdered By: Anthony Russell on 04-13-2023 D-Dimer Quantitative (PE/DVT) < 0.27 FEU/ug/m 0.27-0.49 [facility] Comment on above: NORMAL D-Dimer level (<0.50) indicates no DVT or PE. Estimated Creatinine Clearance Calc 176.92 ml/min [facility] Estimated GFR (MDRD) Amer 248 mL/min >60 [facility] Comment on above: GFR Calc Estimated GFR (MDRD) Non-Af Amer 205 mL/min >60 [facility] Comment on above: Non- GFR Calc Troponin I High Sensitivity < 3 pg/mL 3.0-78.0 [facility] Comment on above: Please Note: New Suha t Units and Gender Specific Reference Ranges. For more information see Policy Stat Procedure [place] High Sensitivity Troponin (TNIH) and attachments. RBC Auto (Bld) [#/Vol]Ordere d By: Anthony Russell on 04-13-2023 RBC (Bld) [#/Vol] 4.85 10*6/uL 4.6-6.2 [facility] Serum or plasma calcium jacinta urement (mass/volume)Ordered By: Anthony Russell on 04-13-2023 Calcium [Mass/Vol] 9.2 mg/dL 8.5-10.1 [facility] Serum or plasma creatinine m easurement (mass/volume)Ordered By: Anthony Russell on 04-13-2023 Creatinine [Mass/Vol] 0.48 mg/dL 0.70-1.30 [facility] Comment on above: The validity of the calculated GFR & GFRAA in patients over 70 years has not been determined. Clinical correlation is essential. Serum or plasma urea nitroge n measurement (mass/volume)Ordered By: Anthony Russell on 04-13-2023 Urea nitrogen [Mass/Vol] 19 mg/dL 7-18 [facility] Thin prep Papanicolaou smear with manual screeningOrdered By: Anthony Russell on 04-13-2023 Thin prep Papanicolaou smear with manual screening 10 5-15 [facility] Absolute lymphocyte countOrd ered By: Lucia Dillard on 03-24-2023 Lymphocytes Auto (Unsp spec) [#/Vol] 1.76 10*3/uL 0.83-4.51 [facility] Automated lymphocyte count a s percentage of total leukocytesOrdered By: Lucia Dillard on 03-24-2023 Lymphocytes/100 WBC Auto (Unsp spec) 25.6 % 19-41 [facility] Basophil percentageOrdered B y: Lucia Dillard on 03-24-2023 Basophil percentage 10.8 g/dL 13.0-16.5 [facility] Basophil percentage 91 mg/dL 74-106 [facility] Basophil percentage 7.5 g/dL 6.4-8.2 [facility] Basophil percentage 0.30 mg/dL 0.20-1.00 [facility] Basophil percentage 137 mmol/L 136-145 [facility] Basophil percentage 3.6 mmol/L 3.5-5.1 [facility] Basophil percentage 106 mmol/L 98-107 [facility] Basophils (Bld) [#/Vol] 6.9 10*3/uL 4.4-11.0 [facility] Basophils (Bld) [#/Vol] 4.3 10*3/uL 2.0-7.7 [facility] Basophils/100 WBC (Bld) 62.2 % 47-70 [facility] Basophils/100 WBC (Bld) 8.9 % 0-10 [facility] Basophils/100 WBC (Bld) 2.9 % 0-5 [facility] Basophils/100 WBC (Bld) 0.3 % 0-1 [facility] Bilirubin [Mass/Vol] 0.30 mg/dL 0.20-1.00 [facility] Comment on above: For patients on eltr ombopag therapy, use of Dimension [place] TBIL is not recommended. Chloride [Moles/Vol] 106 mmol/L 98-107 [facility] Eosinophils/100 WBC (Bld) 2.9 % 0-5 [facility] Glucose [Mass/Vol] 91 mg/dL 74-106 [facility] Hemoglobin (Bld) [Mass/Vol] 10.8 g/dL 13.0-16.5 [facility] Monocytes/100 WBC (Bld) 8.9 % 0-10 [facility] Neutrophils (Bld) [#/Vol] 4.3 10*3/uL 2.0-7.7 [facility] Neutrophils/100 WBC (Bld) 62.2 % 47-70 [facility] Potassium [Moles/Vol] 3.6 mmol/L 3.5-5.1 [facility] Protein [Mass/Vol] 7.5 g/dL 6.4-8.2 [facility] Sodium [Moles/Vol] 137 mmol/L 136-145 [facility] WBC (Bld) [#/Vol] 6.9 10*3/uL 4.4-11.0 [facility] Basophil percentageOrdered B y: Dominic Méndez on 03-24-2023 Basophil percentage 0.5 mmol/L 0.4-2.0 [facility] Lactate [Moles/Vol] 0.5 mmol/L 0.4-2.0 [facility] Determination of erythrocyte mean corpuscular volume (MCV)Ordered By: Lucia Dillard on 03-24-2023 MCV (RBC) [Entitic vol] 84.4 fL 80-94 [facility] Erythrocyte distribution wid th ratioOrdered By: Lucia Dillard on 03-24-2023 Erythrocyte distribution width (RBC) [Ratio] 14.9 % 11.6-14.6 [facility] Erythrocyte distribution wid th standard deviationOrdered By: Lucia Dillard on 03-24-2023 Erythrocyte distribution width (RBC) [Entitic vol] 46.0 fL 35.1-43.9 [facility] Hematocrit Auto (Bld) [Volum e fraction]Ordered By: Lucia Dillard on 03-24-2023 Hematocrit (Bld) [Volume fraction] 35.2 % 40-54 [facility] Immature granulocytes/100 WB C Auto (Bld)Ordered By: Lucia Dillard on 03-24-2023 Immature granulocytes/100 WBC (Bld) 0.100 % 0.0-0.9 [facility] Comment on above: IG% - Immature Granu locytes (promyelocytes, myelocytes and metamyelocytes) > 1% indicates that a LEFT SHIFT is Present. Laboratory - Chemistry and C hemistry - challengeOrdered By: Lucia Dillard on 03-24-2023 Albumin/Globulin [Mass ratio] 0.7 {ratio} 0.9-2.4 [facility] ALP [Catalytic activity/Vol] 153 U/L 45-117 [facility] ALT [Catalytic activity/Vol] 25 U/L 16-61 [facility] CO2 [Moles/Vol] 29.0 mmol/L 21.0-32.0 [facility] Globulin (S) [Mass/Vol] 4.4 g/dL 2.2-4.2 [facility] Urea nitrogen/Creatinine [Mass ratio] 74.7 mg/mg 10-20 [facility] Laboratory - Hematology and Cell countsOrdered By: Lucia Dillard on 03-24-2023 MCH (RBC) [Entitic mass] 25.9 pg 27.0-32.0 [facility] MCHC (RBC) [Mass/Vol] 30.7 g/dL 32-36 [facility] Nucleated RBC/100 WBC (Bld) [Ratio] 0 % 0-5 [facility] Platelets (Bld) [#/Vol] 181 10*3/uL 150-450 [facility] No Panel InformationOrdered By: Lucia Dillard on 03-24-2023 Estimated Creatinine Clearance Calc 351.31 ml/min [facility] Estimated GFR (MDRD) Amer 547 mL/min >60 [facility] Comment on above: GFR Calc Estimated GFR (MDRD) Non-Af Amer 452 mL/min >60 [facility] Comment on above: Non- GFR Calc 25.9 pg 27.0-32.0 [facility] 30.7 g/dL 32-36 [facility] 181 K/mm3 150-450 [facility] 0 % 0-5 [facility] 452 mL/min >60 [facility] 547 mL/min >60 [facility] 351.31 ml/min [facility] 74.7 RATIO 10-20 [facility] 4.4 g/dL 2.2-4.2 [facility] 0.7 RATIO 0.9-2.4 [facility] 153 U/L 45-117 [facility] 25 U/L 16-61 [facility] 29.0 mmol/L 21.0-32.0 [facility] Platelet mean volume Jm-Ec ker (Bld) [Entitic vol]Ordered By: Lucia Dillard on 03-24-2023 Platelet mean volume (Bld) [Entitic vol] 10.4 fL 6.2-12.0 [facility] RBC Auto (Bld) [#/Vol]Ordere d By: Lucia Dillard on 03-24-2023 RBC (Bld) [#/Vol] 4.17 10*6/uL 4.6-6.2 [facility] Serum or plasma calcium jacinta urement (mass/volume)Ordered By: Lucia Dillard on 03-24-2023 Calcium [Mass/Vol] 8.2 mg/dL 8.5-10.1 [facility] Serum or plasma creatinine m easurement (mass/volume)Ordered By: Lucia Dillard on 03-24-2023 Creatinine [Mass/Vol] 0.24 mg/dL 0.70-1.30 [facility] Comment on above: The validity of the calculated GFR & GFRAA in patients over 70 years has not been determined. Clinical correlation is essential. Serum or plasma urea nitroge n measurement (mass/volume)Ordered By: Lucia Dillard on 03-24-2023 Urea nitrogen [Mass/Vol] 18 mg/dL 7-18 [facility] Thin prep Papanicolaou smear with manual screeningOrdered By: Lucia Dillard on 03-24-2023 Thin prep Papanicolaou smear with manual screening 3.1 g/dL 3.2-5.0 [facility] Thin prep Papanicolaou smear with manual screening 14 U/L 15-37 [facility] Thin prep Papanicolaou smear with manual screening 2 5-15 [facility] Absolute lymphocyte countOrd ered By: Dominic Méndez on 03-23-2023 Lymphocytes Auto (Unsp spec) [#/Vol] 2.81 10*3/uL 0.83-4.51 [facility] Activated partial thrombopla stin time (aPTT) in platelet poor plasma by coagulation aOrdered By: Dominic Méndez on 03-23-2023 aPTT Coag (PPP) [Time] 31.1 s 24.1-36.2 [facility] Automated lymphocyte count a s percentage of total leukocytesOrdered By: Dominic Méndez on 03-23-2023 Lymphocytes/100 WBC Auto (Unsp spec) 21.7 % 19-41 [facility] Basophil percentageOrdered B y: Dominic Méndez on 03-23-2023 Bilirubin [Mass/Vol] 0.20 mg/dL 0.20-1.00 [facility] Comment on above: For patients on eltr ombopag therapy, use of Dimension [place] TBIL is not recommended. Chloride [Moles/Vol] 104 mmol/L 98-107 [facility] Glucose [Mass/Vol] 123 mg/dL 74-106 [facility] Comment on above: Fasting Glucose resu lt from 100 to 125 mg/dL suggests IMPAIRED HOMEOSTASIS per A.D.A. criteria. Potassium [Moles/Vol] 3.7 mmol/L 3.5-5.1 [facility] Protein [Mass/Vol] 8.8 g/dL 6.4-8.2 [facility] Sodium [Moles/Vol] 135 mmol/L 136-145 [facility] Basophils/100 WBC (Bld) 0.2 % 0-1 [facility] Eosinophils/100 WBC (Bld) 2.0 % 0-5 [facility] Hemoglobin (Bld) [Mass/Vol] 13.1 g/dL 13.0-16.5 [facility] Lactate [Moles/Vol] 5.3 mmol/L 0.4-2.0 [facility] Comment on above: Critical Result(s) C alled at: 13:12:15 03/23/2023 by: Moraima Simmons. Results read back by same. Monocytes/100 WBC (Bld) 5.1 % 0-10 [facility] Neutrophils (Bld) [#/Vol] 9.1 10*3/uL 2.0-7.7 [facility] Neutrophils/100 WBC (Bld) 70.6 % 47-70 [facility] WBC (Bld) [#/Vol] 13.0 10*3/uL 4.4-11.0 [facility] Culture, urineOrdered By: Champ Méndez on 03-23-2023 Bacteria identified Cx Nom (U) Culture exhibits no growth. [facility] Bacteria identified Cx Nom (U) Culture exhibits no growth. [facility] Determination of erythrocyte mean corpuscular volume (MCV)Ordered By: Dominic Méndez on 03-23-2023 MCV (RBC) [Entitic vol] 83.2 fL 80-94 [facility] Erythrocyte distribution wid th ratioOrdered By: Dominic Méndez on 03-23-2023 Erythrocyte distribution width (RBC) [Ratio] 14.8 % 11.6-14.6 [facility] Erythrocyte distribution wid th standard deviationOrdered By: Dominic Méndez on 03-23-2023 Erythrocyte distribution width (RBC) [Entitic vol] 45.1 fL 35.1-43.9 [facility] Hematocrit Auto (Bld) [Volum e fraction]Ordered By: Dominic Méndez on 03-23-2023 Hematocrit (Bld) [Volume fraction] 42.2 % 40-54 [facility] Immature granulocytes/100 WB C Auto (Bld)Ordered By: Dominic Méndez on 03-23-2023 Immature granulocytes/100 WBC (Bld) 0.400 % 0.0-0.9 [facility] Comment on above: IG% - Immature Granu locytes (promyelocytes, myelocytes and metamyelocytes) > 1% indicates that a LEFT SHIFT is Present. International normalized rat io (INR) calculationOrdered By: Dominic Méndez on 03-23-2023 INR Coag (PPP) [Relative time] 1.0 {INR} [facility] Laboratory - Chemistry and C hemistry - challengeOrdered By: Dominic Méndez on 03-23-2023 Albumin/Globulin [Mass ratio] 0.7 {ratio} 0.9-2.4 [facility] ALP [Catalytic activity/Vol] 169 U/L 45-117 [facility] ALT [Catalytic activity/Vol] 29 U/L 16-61 [facility] CO2 [Moles/Vol] 26.0 mmol/L 21.0-32.0 [facility] Globulin (S) [Mass/Vol] 5.2 g/dL 2.2-4.2 [facility] Urea nitrogen/Creatinine [Mass ratio] 46.1 mg/mg 10-20 [facility] - CoagulationOrde red By: Dominic Méndez on 03-23-2023 PT Coag (PPP) [Time] 12.9 s 11.7-14.9 [facility] Laboratory - Hematology and Cell countsOrdered By: Dominic Méndez on 03-23-2023 MCH (RBC) [Entitic mass] 25.8 pg 27.0-32.0 [facility] MCHC (RBC) [Mass/Vol] 31.0 g/dL 32-36 [facility] Nucleated RBC/100 WBC (Bld) [Ratio] 0 % 0-5 [facility] Platelets (Bld) [#/Vol] 229 10*3/uL 150-450 [facility] - Microbiology an d Antimicrobial susceptibilityOrdered By: Dominic Méndez on 03-23-2023 Bacteria identified Cx Nom (Bld) No growth in 5 days. [facility] Bacteria identified Cx Nom (Bld) No growth in 5 days. [facility] No Panel InformationOrdered By: Dominic Méndez on 03-23-2023 Estimated Creatinine Clearance Calc 186.40 ml/min [facility] Estimated GFR (MDRD) Amer 262 mL/min >60 [facility] Comment on above: GFR Calc Estimated GFR (MDRD) Non-Af Amer 217 mL/min >60 [facility] Comment on above: Non- GFR Calc 12.9 SECONDS 11.7-14.9 [facility] Platelet mean volume Jm-Ec ker (Bld) [Entitic vol]Ordered By: Dominic Méndez on 03-23-2023 Platelet mean volume (Bld) [Entitic vol] 10.1 fL 6.2-12.0 [facility] RBC Auto (Bld) [#/Vol]Ordere d By: Dominic Méndez on 03-23-2023 RBC (Bld) [#/Vol] 5.07 10*6/uL 4.6-6.2 [facility] Respiratory pathogens detect ion panel by molecular detection methodOrdered By: Dominic Méndze on 03-23-2023 Respiratory pathogens DNA and RNA panel YAYO+probe (Resp) [facility] Respiratory pathogens DNA and RNA panel YAYO+probe (Resp) [facility] Serum or plasma calcium jacinta urement (mass/volume)Ordered By: Dominic Méndez on 03-23-2023 Calcium [Mass/Vol] 8.8 mg/dL 8.5-10.1 [facility] Serum or plasma creatinine m easurement (mass/volume)Ordered By: Dominic Méndez on 03-23-2023 Creatinine [Mass/Vol] 0.46 mg/dL 0.70-1.30 [facility] Comment on above: The validity of the calculated GFR & GFRAA in patients over 70 years has not been determined. Clinical correlation is essential. Serum or plasma urea nitroge n measurement (mass/volume)Ordered By: Dominic Méndez on 03-23-2023 Urea nitrogen [Mass/Vol] 21 mg/dL 7-18 [facility] Thin prep Papanicolaou smear with manual screeningOrdered By: Dominic Méndez on 03-23-2023 Thin prep Papanicolaou smear with manual screening 3.6 g/dL 3.2-5.0 [facility] Thin prep Papanicolaou smear with manual screening 16 U/L 15-37 [facility] Thin prep Papanicolaou smear with manual screening 5 5-15 [facility] Absolute lymphocyte countOrd ered By: Torey Huffman on 03-01-2023 Lymphocytes Auto (Unsp spec) [#/Vol] 2.53 10*3/uL 0.83-4.51 [facility] Basophil percentageOrdered B y: Torey Huffman on 03-01-2023 Basophil percentage 93 mg/dL 74-106 [facility] Basophil percentage 140 mmol/L 136-145 [facility] Basophil percentage 3.8 mmol/L 3.5-5.1 [facility] Basophil percentage 105 mmol/L 98-107 [facility] Basophils (Bld) [#/Vol] 7.0 10*3/uL 4.4-11.0 [facility] Basophils (Bld) [#/Vol] 3.5 10*3/uL 2.0-7.7 [facility] Basophils/100 WBC (Bld) 0.3 % 0-1 [facility] Basophils/100 WBC (Bld) 49.5 % 47-70 [facility] Basophils/100 WBC (Bld) 4.9 % 0-5 [facility] Chloride [Moles/Vol] 105 mmol/L 98-107 [facility] Eosinophils/100 WBC (Bld) 4.9 % 0-5 [facility] Glucose [Mass/Vol] 93 mg/dL 74-106 [facility] Neutrophils (Bld) [#/Vol] 3.5 10*3/uL 2.0-7.7 [facility] Neutrophils/100 WBC (Bld) 49.5 % 47-70 [facility] Potassium [Moles/Vol] 3.8 mmol/L 3.5-5.1 [facility] Sodium [Moles/Vol] 140 mmol/L 136-145 [facility] WBC (Bld) [#/Vol] 7.0 10*3/uL 4.4-11.0 [facility] Blood erythrocytes count (nu mber/volume)Ordered By: Torey Huffman on 03-01-2023 RBC (Bld) [#/Vol] 4.30 10*6/uL 4.6-6.2 [facility] Blood hemoglobin measurement (mass/volume)Ordered By: Torey Huffman on 03-01-2023 Hemoglobin (Bld) [Mass/Vol] 11.1 g/dL 13.0-16.5 [facility] Blood lymphocytes/100 leukoc ytesOrdered By: Torey Huffman on 03-01-2023 Lymphocytes/100 WBC (Bld) 36.3 % 19-41 [facility] Blood monocytes/100 leukocyt esOrdered By: Torey Huffman on 03-01-2023 Monocytes/100 WBC (Bld) 8.9 % 0-10 [facility] Blood platelet mean volumeOr dered By: Torey Huffman on 03-01-2023 Platelet mean volume (Bld) [Entitic vol] 11.0 fL 6.2-12.0 [facility] Determination of erythrocyte mean corpuscular volume (MCV)Ordered By: Torey Huffman on 03-01-2023 MCV (RBC) [Entitic vol] 83.5 fL 80-94 [facility] Hematocrit Auto (Bld) [Volum e fraction]Ordered By: Torey Huffman on 03-01-2023 Hematocrit (Bld) [Volume fraction] 35.9 % 40-54 [facility] - Chemistry and C hemistry - challengeOrdered By: Torey Huffman on 03-01-2023 CO2 [Moles/Vol] 28.0 mmol/L 21.0-32.0 [facility] Urea nitrogen/Creatinine [Mass ratio] 60.6 mg/mg 10-20 [facility] - Hematology and Cell countsOrdered By: Torey Huffman on 03-01-2023 Erythrocyte distribution width (RBC) [Entitic vol] 44.3 fL 35.1-43.9 [facility] Erythrocyte distribution width (RBC) [Ratio] 14.6 % 11.6-14.6 [facility] Immature granulocytes/100 WBC (Bld) 0.100 % 0.0-0.9 [facility] Comment on above: IG% - Immature Granu locytes (promyelocytes, myelocytes and metamyelocytes) > 1% indicates that a LEFT SHIFT is Present. MCH (RBC) [Entitic mass] 25.8 pg 27.0-32.0 [facility] Nucleated RBC/100 WBC (Bld) [Ratio] 0 % 0-5 [facility] MCHC Auto (RBC) [Mass/Vol]Or dered By: Torey Huffman on 03-01-2023 MCHC (RBC) [Mass/Vol] 30.9 g/dL 32-36 [facility] No Panel InformationOrdered By: Torey Huffman on 03-01-2023 Estimated GFR (MDRD) Amer 308 mL/min >60 [facility] Comment on above: GFR Calc Estimated GFR (MDRD) Non-Af Amer 255 mL/min >60 [facility] Comment on above: Non- GFR Calc 25.8 pg 27.0-32.0 [facility] 14.6 % 11.6-14.6 [facility] 44.3 fl 35.1-43.9 [facility] 0.100 % 0.0-0.9 [facility] 0 % 0-5 [facility] 255 mL/min >60 [facility] 308 mL/min >60 [facility] 60.6 RATIO 10-20 [facility] 28.0 mmol/L 21.0-32.0 [facility] Platelets bldOrdered By: Mellissa Huffman on 03-01-2023 Platelets (Bld) [#/Vol] 202 10*3/uL 150-450 [facility] Serum or plasma calcium jacinta urement (mass/volume)Ordered By: Torey Huffman on 03-01-2023 Calcium [Mass/Vol] 8.7 mg/dL 8.5-10.1 [facility] Serum or plasma creatinine m easurement (mass/volume)Ordered By: Torey Huffman on 03-01-2023 Creatinine [Mass/Vol] 0.40 mg/dL 0.70-1.30 [facility] Comment on above: The validity of the calculated GFR & GFRAA in patients over 70 years has not been determined. Clinical correlation is essential. Serum or plasma urea nitroge n measurement (mass/volume)Ordered By: Torey Huffman on 03-01-2023 Urea nitrogen [Mass/Vol] 24 mg/dL 7-18 [facility] Thin prep Papanicolaou smear with manual screeningOrdered By: Torey Huffman on 03-01-2023 Thin prep Papanicolaou smear with manual screening 7 5-15 [facility] Absolute lymphocyte countOrd ered By: Torey Huffman on 02-03-2023 Lymphocytes Auto (Unsp spec) [#/Vol] 2.02 10*3/uL 0.83-4.51 [facility] Basophil percentageOrdered B y: Torey Huffman on 02-03-2023 Basophil percentage 103 mg/dL 74-106 [facility] Basophil percentage 139 mmol/L 136-145 [facility] Basophil percentage 3.7 mmol/L 3.5-5.1 [facility] Basophil percentage 105 mmol/L 98-107 [facility] Basophils (Bld) [#/Vol] 5.9 10*3/uL 4.4-11.0 [facility] Basophils (Bld) [#/Vol] 3.0 10*3/uL 2.0-7.7 [facility] Basophils/100 WBC (Bld) 0.3 % 0-1 [facility] Basophils/100 WBC (Bld) 50.5 % 47-70 [facility] Basophils/100 WBC (Bld) 5.6 % 0-5 [facility] Chloride [Moles/Vol] 105 mmol/L 98-107 [facility] Eosinophils/100 WBC (Bld) 5.6 % 0-5 [facility] Glucose [Mass/Vol] 103 mg/dL 74-106 [facility] Comment on above: Fasting Glucose resu lt from 100 to 125 mg/dL suggests IMPAIRED HOMEOSTASIS per A.D.A. criteria. Neutrophils (Bld) [#/Vol] 3.0 10*3/uL 2.0-7.7 [facility] Neutrophils/100 WBC (Bld) 50.5 % 47-70 [facility] Potassium [Moles/Vol] 3.7 mmol/L 3.5-5.1 [facility] Sodium [Moles/Vol] 139 mmol/L 136-145 [facility] WBC (Bld) [#/Vol] 5.9 10*3/uL 4.4-11.0 [facility] Blood erythrocytes count (nu mber/volume)Ordered By: Torey Huffman on 02-03-2023 RBC (Bld) [#/Vol] 3.99 10*6/uL 4.6-6.2 [facility] Blood hemoglobin measurement (mass/volume)Ordered By: Torey Huffman on 02-03-2023 Hemoglobin (Bld) [Mass/Vol] 10.3 g/dL 13.0-16.5 [facility] Blood lymphocytes/100 leukoc ytesOrdered By: Torey Huffman on 02-03-2023 Lymphocytes/100 WBC (Bld) 34.4 % 19-41 [facility] Blood monocytes/100 leukocyt esOrdered By: Torey Huffman on 02-03-2023 Monocytes/100 WBC (Bld) 9.0 % 0-10 [facility] Blood platelet mean volumeOr dered By: Torey Huffman on 02-03-2023 Platelet mean volume (Bld) [Entitic vol] 11.0 fL 6.2-12.0 [facility] Determination of erythrocyte mean corpuscular volume (MCV)Ordered By: Torey Huffman on 02-03-2023 MCV (RBC) [Entitic vol] 83.0 fL 80-94 [facility] Hematocrit Auto (Bld) [Volum e fraction]Ordered By: Torey Huffman on 02-03-2023 Hematocrit (Bld) [Volume fraction] 33.1 % 40-54 [facility] - Chemistry and C hemistry - challengeOrdered By: Torey Huffman on 02-03-2023 CO2 [Moles/Vol] 30.0 mmol/L 21.0-32.0 [facility] Urea nitrogen/Creatinine [Mass ratio] 51.6 mg/mg 10-20 [facility] - Hematology and Cell countsOrdered By: Torey Huffman on 02-03-2023 Erythrocyte distribution width (RBC) [Entitic vol] 43.8 fL 35.1-43.9 [facility] Erythrocyte distribution width (RBC) [Ratio] 14.4 % 11.6-14.6 [facility] Immature granulocytes/100 WBC (Bld) 0.200 % 0.0-0.9 [facility] Comment on above: IG% - Immature Granu locytes (promyelocytes, myelocytes and metamyelocytes) > 1% indicates that a LEFT SHIFT is Present. MCH (RBC) [Entitic mass] 25.8 pg 27.0-32.0 [facility] Nucleated RBC/100 WBC (Bld) [Ratio] 0 % 0-5 [facility] MCHC Auto (RBC) [Mass/Vol]Or dered By: Torey Huffman on 02-03-2023 MCHC (RBC) [Mass/Vol] 31.1 g/dL 32-36 [facility] No Panel InformationOrdered By: Torey Huffman on 02-03-2023 Estimated GFR (MDRD) Amer 409 mL/min >60 [facility] Comment on above: GFR Calc Estimated GFR (MDRD) Non-Af Amer 338 mL/min >60 [facility] Comment on above: Non- GFR Calc 25.8 pg 27.0-32.0 [facility] 14.4 % 11.6-14.6 [facility] 43.8 fl 35.1-43.9 [facility] 0.200 % 0.0-0.9 [facility] 0 % 0-5 [facility] 338 mL/min >60 [facility] 409 mL/min >60 [facility] 51.6 RATIO 10-20 [facility] 30.0 mmol/L 21.0-32.0 [facility] Platelets bldOrdered By: Mellissa Huffman on 02-03-2023 Platelets (Bld) [#/Vol] 172 10*3/uL 150-450 [facility] Serum or plasma calcium jacinta urement (mass/volume)Ordered By: Torey Huffman on 02-03-2023 Calcium [Mass/Vol] 8.4 mg/dL 8.5-10.1 [facility] Serum or plasma creatinine m easurement (mass/volume)Ordered By: Torey Huffman on 02-03-2023 Creatinine [Mass/Vol] 0.31 mg/dL 0.70-1.30 [facility] Comment on above: The validity of the calculated GFR & GFRAA in patients over 70 years has not been determined. Clinical correlation is essential. Serum or plasma urea nitroge n measurement (mass/volume)Ordered By: Torey Huffman on 02-03-2023 Urea nitrogen [Mass/Vol] 16 mg/dL 7-18 [facility] Thin prep Papanicolaou smear with manual screeningOrdered By: Torey Huffman on 02-03-2023 Thin prep Papanicolaou smear with manual screening 4 5-15 [facility] Absolute lymphocyte countOrd ered By: Amena Smith on 01-16-2023 Lymphocytes Auto (Unsp spec) [#/Vol] 1.47 10*3/uL 0.83-4.51 [facility] Basophil percentageOrdered B y: Amena Smith on 01-16-2023 Basophil percentage 0-5 SEEN /hpf 0-5 [facility] Basophil percentage 97 mg/dL 74-106 [facility] Basophil percentage 137 mmol/L 136-145 [facility] Basophil percentage 3.7 mmol/L 3.5-5.1 [facility] Basophil percentage 105 mmol/L 98-107 [facility] Basophil percentage 0.9 mmol/L 0.4-2.0 [facility] Basophils (Bld) [#/Vol] 8.7 10*3/uL 4.4-11.0 [facility] Basophils (Bld) [#/Vol] 6.6 10*3/uL 2.0-7.7 [facility] Basophils/100 WBC (Bld) 0.1 % 0-1 [facility] Basophils/100 WBC (Bld) 75.2 % 47-70 [facility] Basophils/100 WBC (Bld) 1.1 % 0-5 [facility] Chloride [Moles/Vol] 105 mmol/L 98-107 [facility] E[facility] WBC (Bld) 1.1 % 0-5 [facility] Glucose [Mass/Vol] 97 mg/dL 74-106 [facility] Lactate [Moles/Vol] 0.9 mmol/L 0.4-2.0 [facility] Neutrophils (Bld) [#/Vol] 6.6 10*3/uL 2.0-7.7 [facility] Neutrophils/100 WBC (Bld) 75.2 % 47-70 [facility] Potassium [Moles/Vol] 3.7 mmol/L 3.5-5.1 [facility] Sodium [Moles/Vol] 137 mmol/L 136-145 [facility] WBC (Bld) [#/Vol] 8.7 10*3/uL 4.4-11.0 [facility] Bilirubin Test strip Ql (U)O rdered By: Amena Smith on 01-16-2023 Bilirubin Ql (U) Negative Negative [facility] Blood erythrocytes count (nu mber/volume)Ordered By: Amena Smith on 01-16-2023 RBC (Bld) [#/Vol] 4.46 10*6/uL 4.6-6.2 [facility] Blood hemoglobin measurement (mass/volume)Ordered By: Amena Smith on 01-16-2023 Hemoglobin (Bld) [Mass/Vol] 11.6 g/dL 13.0-16.5 [facility] Blood lymphocytes/100 leukoc ytesOrdered By: Amena Smith on 01-16-2023 Lymphocytes/100 WBC (Bld) 16.8 % 19-41 [facility] Blood monocytes/100 leukocyt esOrdered By: Amena Smith on 01-16-2023 Monocytes/100 WBC (Bld) 6.5 % 0-10 [facility] Blood platelet mean volumeOr dered By: Amena Smith on 01-16-2023 Platelet mean volume (Bld) [Entitic vol] 10.2 fL 6.2-12.0 [facility] Culture, urineOrdered By: Елена Smith on 01-16-2023 Bacteria identified Cx Nom (U) Culture exhibits no growth. [facility] Determination of erythrocyte mean corpuscular volume (MCV)Ordered By: Amena Smith on 01-16-2023 MCV (RBC) [Entitic vol] 84.1 fL 80-94 [facility] Hematocrit Auto (Bld) [Volum e fraction]Ordered By: Amena Smith on 01-16-2023 Hematocrit (Bld) [Volume fraction] 37.5 % 40-54 [facility] Influenza virus A and B and SARS-CoV-2 (COVID-19) Ag panel - Upper respiratory specimOrdered By: Amena Smith on 01-16-2023 SARS-CoV-2 (COVID-19) RNA YAYO+probe Ql (Resp) [facility] Ketones Test strip Ql (U)Ord ered By: Amena Smith on 01-16-2023 Ketones Ql (U) 5 mg/dl Negative [facility] - Chemistry and C hemistry - challengeOrdered By: Amena Smith on 01-16-2023 CO2 [Moles/Vol] 28.0 mmol/L 21.0-32.0 [facility] Urea nitrogen/Creatinine [Mass ratio] 69.5 mg/mg 10-20 [facility] - Hematology and Cell countsOrdered By: Amena Smith on 01-16-2023 Erythrocyte distribution width (RBC) [Entitic vol] 44.5 fL 35.1-43.9 [facility] Erythrocyte distribution width (RBC) [Ratio] 14.6 % 11.6-14.6 [facility] Immature granulocytes/100 WBC (Bld) 0.300 % 0.0-0.9 [facility] Comment on above: IG% - Immature Granu locytes (promyelocytes, myelocytes and metamyelocytes) > 1% indicates that a LEFT SHIFT is Present. MCH (RBC) [Entitic mass] 26.0 pg 27.0-32.0 [facility] Nucleated RBC/100 WBC (Bld) [Ratio] 0 % 0-5 [facility] - Microbiology an d Antimicrobial susceptibilityOrdered By: Amena Smith on 01-16-2023 Bacteria identified Cx Nom (Bld) No growth in 5 days. [facility] MCHC Auto (RBC) [Mass/Vol]Or dered By: Amena Smith on 01-16-2023 MCHC (RBC) [Mass/Vol] 30.9 g/dL 32-36 [facility] Mucus LM Ql (Urine sed)Order ed By: Amena Smith on 01-16-2023 Mucus Ql (Urine sed) 0 SEEN /hpf [facility] Nitrite Test strip Ql (U)Ord ered By: Amena Smith on 01-16-2023 Nitrite Ql (U) Negative Negative [facility] No Panel InformationOrdered By: Amena Smith on 01-16-2023 No growth in 5 days. [facility] Estimated Creatinine Clearance Calc 231.48 ml/min [facility] Estimated GFR (MDRD) Amer 422 mL/min >60 [facility] Comment on above: GFR Calc Estimated GFR (MDRD) Non-Af Amer 349 mL/min >60 [facility] Comment on above: Non- GFR Calc 26.0 pg 27.0-32.0 [facility] 14.6 % 11.6-14.6 [facility] 44.5 fl 35.1-43.9 [facility] 0.300 % 0.0-0.9 [facility] 0 % 0-5 [facility] 349 mL/min >60 [facility] 422 mL/min >60 [facility] 231.48 ml/min [facility] 69.5 RATIO 10-20 [facility] 28.0 mmol/L 21.0-32.0 [facility] No Panel InformationOrdered By: Dalton Lester on 01-16-2023 Troponin I High Sensitivity 4 pg/mL 3.0-78.0 [facility] Comment on above: Please Note: New Suha t Units and Gender Specific Reference Ranges. For more information see Policy Stat Procedure [place] High Sensitivity Troponin (TNIH) and attachments. 4 pg/mL 3.0-78.0 [facility] Platelets bldOrdered By: Marjorie Smith on 01-16-2023 Platelets (Bld) [#/Vol] 206 10*3/uL 150-450 [facility] Protein Test strip Ql (U)Ord ered By: Amena Smith on 01-16-2023 Protein Ql (U) 30 mg/dl Negative [facility] Serum or plasma calcium jacinta urement (mass/volume)Ordered By: Amena Smith on 01-16-2023 Calcium [Mass/Vol] 8.3 mg/dL 8.5-10.1 [facility] Serum or plasma creatinine m easurement (mass/volume)Ordered By: Amena Smith on 01-16-2023 Creatinine [Mass/Vol] 0.30 mg/dL 0.70-1.30 [facility] Comment on above: The validity of the calculated GFR & GFRAA in patients over 70 years has not been determined. Clinical correlation is essential. Serum or plasma urea nitroge n measurement (mass/volume)Ordered By: Amena Smith on 01-16-2023 Urea nitrogen [Mass/Vol] 21 mg/dL 7-18 [facility] Squamous epithelial cells de tection in urine sediment by light microscopyOrdered By: Amena Smith on 01-16-2023 Epithelial cells.squamous LM Ql (Urine sed) 0 SEEN /hpf 0-5 [facility] Thin prep Papanicolaou smear with manual screeningOrdered By: Amena Smith on 01-16-2023 Thin prep Papanicolaou smear with manual screening 4 5-15 [facility] Upper respiratory specimen i nfluenza A virus, influenza B virus, and severe acute respiratory syndromOrdered By: Amena Smith on 01-16-2023 Upper respiratory specimen influenza A virus, influenza B virus, and severe acute respiratory syndrom [facility] Urine blood detectionOrdered By: Amena Smith on 01-16-2023 RBC Ql (U) 10 /ul Negative [facility] RBC Ql (U) 0 SEEN /hpf 0-5 [facility] Urine clarityOrdered By: Marjorie Smith on 01-16-2023 Clarity (U) Clear Clear [facility] Urine color determinationOrd ered By: Amena Smith on 01-16-2023 Color (U) Yellow Yellow [facility] Urine glucose detectionOrder ed By: Amena Smith on 01-16-2023 Glucose Ql (U) Normal mg/dl Normal [facility] Urine leukocyte esterase det ection by dipstickOrdered By: Amena Smith on 01-16-2023 Leukocyte esterase Test strip Ql (U) 25 /ul Negative [facility] Urine pHOrdered By: Amena simons on 01-16-2023 pH (U) 6.0 [pH] 5.0 - 8.0 [facility] Urine sediment bacteria coun t by microscopy (number/high power field)Ordered By: Amena Smith on 01-16-2023 Bacteria LM.HPF (Urine sed) [#/Area] 0 /[HPF] None Seen [facility] Urine specific gravity measu rementOrdered By: Amena Smith on 01-16-2023 Specific gravity (U) [Rel density] 1.025 1.002-1.030 [facility] Urobilinogen Auto test strip Ql (U)Ordered By: Amena Smith on 01-16-2023 Urobilinogen Ql (U) Normal mg/dl Normal [facility] Absolute lymphocyte countOrd ered By: Torey Huffman on 01-04-2023 Lymphocytes Auto (Unsp spec) [#/Vol] 2.04 10*3/uL 0.83-4.51 [facility] Basophil percentageOrdered B y: Torey Huffman on 01-04-2023 Basophil percentage 91 mg/dL 74-106 [facility] Basophil percentage 141 mmol/L 136-145 [facility] Basophil percentage 3.9 mmol/L 3.5-5.1 [facility] Basophil percentage 105 mmol/L 98-107 [facility] Basophils (Bld) [#/Vol] 6.9 10*3/uL 4.4-11.0 [facility] Basophils (Bld) [#/Vol] 3.9 10*3/uL 2.0-7.7 [facility] Basophils/100 WBC (Bld) 0.3 % 0-1 [facility] Basophils/100 WBC (Bld) 57.1 % 47-70 [facility] Basophils/100 WBC (Bld) 4.4 % 0-5 [facility] Chloride [Moles/Vol] 105 mmol/L 98-107 [facility] Eosinophils/100 WBC (Bld) 4.4 % 0-5 [facility] Glucose [Mass/Vol] 91 mg/dL 74-106 [facility] Neutrophils (Bld) [#/Vol] 3.9 10*3/uL 2.0-7.7 [facility] Neutrophils/100 WBC (Bld) 57.1 % 47-70 [facility] Potassium [Moles/Vol] 3.9 mmol/L 3.5-5.1 [facility] Sodium [Moles/Vol] 141 mmol/L 136-145 [facility] WBC (Bld) [#/Vol] 6.9 10*3/uL 4.4-11.0 [facility] Blood erythrocytes count (nu mber/volume)Ordered By: Torey Huffman on 01-04-2023 RBC (Bld) [#/Vol] 4.11 10*6/uL 4.6-6.2 [facility] Blood hemoglobin measurement (mass/volume)Ordered By: Torey Huffman on 01-04-2023 Hemoglobin (Bld) [Mass/Vol] 10.6 g/dL 13.0-16.5 [facility] Blood lymphocytes/100 leukoc ytesOrdered By: Torey Huffman on 01-04-2023 Lymphocytes/100 WBC (Bld) 29.7 % 19-41 [facility] Blood monocytes/100 leukocyt esOrdered By: Torey Huffman on 01-04-2023 Monocytes/100 WBC (Bld) 8.4 % 0-10 [facility] Blood platelet mean volumeOr dered By: Torey Huffman on 01-04-2023 Platelet mean volume (Bld) [Entitic vol] 10.3 fL 6.2-12.0 [facility] Determination of erythrocyte mean corpuscular volume (MCV)Ordered By: Torey Huffman on 01-04-2023 MCV (RBC) [Entitic vol] 84.9 fL 80-94 [facility] Hematocrit Auto (Bld) [Volum e fraction]Ordered By: Torey Huffman on 01-04-2023 Hematocrit (Bld) [Volume fraction] 34.9 % 40-54 [facility] - Chemistry and C hemistry - challengeOrdered By: Torey Huffman on 01-04-2023 CO2 [Moles/Vol] 31.0 mmol/L 21.0-32.0 [facility] Urea nitrogen/Creatinine [Mass ratio] 65.4 mg/mg 10-20 [facility] - Hematology and Cell countsOrdered By: Torey Huffman on 01-04-2023 Erythrocyte distribution width (RBC) [Entitic vol] 45.1 fL 35.1-43.9 [facility] Erythrocyte distribution width (RBC) [Ratio] 14.6 % 11.6-14.6 [facility] Immature granulocytes/100 WBC (Bld) 0.100 % 0.0-0.9 [facility] Comment on above: IG% - Immature Granu locytes (promyelocytes, myelocytes and metamyelocytes) > 1% indicates that a LEFT SHIFT is Present. MCH (RBC) [Entitic mass] 25.8 pg 27.0-32.0 [facility] Nucleated RBC/100 WBC (Bld) [Ratio] 0 % 0-5 [facility] MCHC Auto (RBC) [Mass/Vol]Or dered By: Toery Huffman on 01-04-2023 MCHC (RBC) [Mass/Vol] 30.4 g/dL 32-36 [facility] No Panel InformationOrdered By: Torey Huffman on 01-04-2023 Estimated GFR (MDRD) Amer 501 mL/min >60 [facility] Comment on above: GFR Calc Estimated GFR (MDRD) Non-Af Amer 414 mL/min >60 [facility] Comment on above: Non- GFR Calc 25.8 pg 27.0-32.0 [facility] 14.6 % 11.6-14.6 [facility] 45.1 fl 35.1-43.9 [facility] 0.100 % 0.0-0.9 [facility] 0 % 0-5 [facility] 414 mL/min >60 [facility] 501 mL/min >60 [facility] 65.4 RATIO 10-20 [facility] 31.0 mmol/L 21.0-32.0 [facility] Platelets bldOrdered By: Mellissa Huffman on 01-04-2023 Platelets (Bld) [#/Vol] 172 10*3/uL 150-450 [facility] Serum or plasma calcium jacinta urement (mass/volume)Ordered By: Torey Huffman on 01-04-2023 Calcium [Mass/Vol] 8.1 mg/dL 8.5-10.1 [facility] Serum or plasma creatinine m easurement (mass/volume)Ordered By: Torey Huffman on 01-04-2023 Creatinine [Mass/Vol] 0.26 mg/dL 0.70-1.30 [facility] Comment on above: The validity of the calculated GFR & GFRAA in patients over 70 years has not been determined. Clinical correlation is essential. Serum or plasma urea nitroge n measurement (mass/volume)Ordered By: Torey Huffman on 01-04-2023 Urea nitrogen [Mass/Vol] 17 mg/dL 7-18 [facility] Thin prep Papanicolaou smear with manual screeningOrdered By: Torey Huffman on 01-04-2023 Thin prep Papanicolaou smear with manual screening 5 5-15 [facility] Basophil percentageOrdered B y: Donte Abebe on 12-13-2022 Basophil percentage 116 mg/dL 74-106 [facility] Basophil percentage 141 mmol/L 136-145 [facility] Basophil percentage 3.4 mmol/L 3.5-5.1 [facility] Basophil percentage 109 mmol/L 98-107 [facility] Basophils (Bld) [#/Vol] 7.6 10*3/uL 4.4-11.0 [facility] Chloride [Moles/Vol] 109 mmol/L 98-107 [facility] Glucose [Mass/Vol] 116 mg/dL 74-106 [facility] Comment on above: Fasting Glucose resu lt from 100 to 125 mg/dL suggests IMPAIRED HOMEOSTASIS per A.D.A. criteria. Potassium [Moles/Vol] 3.4 mmol/L 3.5-5.1 [facility] Sodium [Moles/Vol] 141 mmol/L 136-145 [facility] WBC (Bld) [#/Vol] 7.6 10*3/uL 4.4-11.0 [facility] Blood erythrocytes count (nu mber/volume)Ordered By: Donte Abebe on 12-13-2022 RBC (Bld) [#/Vol] 3.74 10*6/uL 4.6-6.2 [facility] Blood hemoglobin measurement (mass/volume)Ordered By: Donte Abebe on 12-13-2022 Hemoglobin (Bld) [Mass/Vol] 9.9 g/dL 13.0-16.5 [facility] Blood platelet mean volumeOr dered By: Donte Abebe on 12-13-2022 Platelet mean volume (Bld) [Entitic vol] 9.9 fL 6.2-12.0 [facility] Determination of erythrocyte mean corpuscular volume (MCV)Ordered By: Donte Abebe on 12-13-2022 MCV (RBC) [Entitic vol] 87.4 fL 80-94 [facility] Hematocrit Auto (Bld) [Volum e fraction]Ordered By: Donte Abebe on 12-13-2022 Hematocrit (Bld) [Volume fraction] 32.7 % 40-54 [facility] - Chemistry and C hemistry - challengeOrdered By: Donte Abebe on 12-13-2022 CO2 [Moles/Vol] 27.0 mmol/L 21.0-32.0 [facility] Urea nitrogen/Creatinine [Mass ratio] 47.2 mg/mg 12-11 [facility] - Hematology and Cell countsOrdered By: Donte Abebe on 12-13-2022 Erythrocyte distribution width (RBC) [Entitic vol] 46.0 fL 35.1-43.9 [facility] Erythrocyte distribution width (RBC) [Ratio] 14.4 % 11.6-14.6 [facility] MCH (RBC) [Entitic mass] 26.5 pg 27.0-32.0 [facility] MCHC Auto (RBC) [Mass/Vol]Or dered By: Donte Abebe on 12-13-2022 MCHC (RBC) [Mass/Vol] 30.3 g/dL 32-36 [facility] No Panel InformationOrdered By: Donte Abebe on 12-13-2022 Estimated Creatinine Clearance Calc 277.78 ml/min [facility] Estimated GFR (MDRD) Amer 515 mL/min >60 [facility] Comment on above: GFR Calc Estimated GFR (MDRD) Non-Af Amer 426 mL/min >60 [facility] Comment on above: Non- GFR Calc 26.5 pg 27.0-32.0 [facility] 14.4 % 11.6-14.6 [facility] 46.0 fl 35.1-43.9 [facility] 426 mL/min >60 [facility] 515 mL/min >60 [facility] 277.78 ml/min [facility] 47.2 RATIO 12-11 [facility] 27.0 mmol/L 21.0-32.0 [facility] Platelets bldOrdered By: Sho Abebe on 12-13-2022 Platelets (Bld) [#/Vol] 166 10*3/uL 150-450 [facility] Serum or plasma calcium jacinta urement (mass/volume)Ordered By: Donte Abebe on 12-13-2022 Calcium [Mass/Vol] 7.4 mg/dL 8.5-10.1 [facility] Serum or plasma creatinine m easurement (mass/volume)Ordered By: Donte Abebe on 12-13-2022 Creatinine [Mass/Vol] 0.25 mg/dL 0.70-1.30 [facility] Comment on above: The validity of the calculated GFR & GFRAA in patients over 70 years has not been determined. Clinical correlation is essential. Serum or plasma urea nitroge n measurement (mass/volume)Ordered By: Donte Abebe on 12-13-2022 Urea nitrogen [Mass/Vol] 12 mg/dL 7-18 [facility] Thin prep Papanicolaou smear with manual screeningOrdered By: Donte Abebe on 12-13-2022 Thin prep Papanicolaou smear with manual screening 5 5-15 [facility] Basophil percentageOrdered B y: Donte Abebe on 12-11-2022 Chloride [Moles/Vol] 111 mmol/L 98-107 [facility] Glucose [Mass/Vol] 101 mg/dL 74-106 [facility] Comment on above: Fasting Glucose resu lt from 100 to 125 mg/dL suggests IMPAIRED HOMEOSTASIS per A.D.A. criteria. Potassium [Moles/Vol] 2.8 mmol/L 3.5-5.1 [facility] Sodium [Moles/Vol] 144 mmol/L 136-145 [facility] WBC (Bld) [#/Vol] 7.6 10*3/uL 4.4-11.0 [facility] Blood erythrocytes count (nu mber/volume)Ordered By: Donte Abebe on 12-11-2022 RBC (Bld) [#/Vol] 3.90 10*6/uL 4.6-6.2 [facility] Blood hemoglobin measurement (mass/volume)Ordered By: Donte Abebe on 12-11-2022 Hemoglobin (Bld) [Mass/Vol] 10.3 g/dL 13.0-16.5 [facility] Blood platelet mean volumeOr dered By: Donte Abebe on 12-11-2022 Platelet mean volume (Bld) [Entitic vol] 9.9 fL 6.2-12.0 [facility] Determination of erythrocyte mean corpuscular volume (MCV)Ordered By: Donte Abebe on 12-11-2022 MCV (RBC) [Entitic vol] 85.9 fL 80-94 [facility] Hematocrit Auto (Bld) [Volum e fraction]Ordered By: Donte Abebe on 12-11-2022 Hematocrit (Bld) [Volume fraction] 33.5 % 40-54 [facility] - Chemistry and C hemistry - challengeOrdered By: Donte Abebe on 12-11-2022 CO2 [Moles/Vol] 29.0 mmol/L 21.0-32.0 [facility] Urea nitrogen/Creatinine [Mass ratio] 69.8 mg/mg 12-11 [facility] - Hematology and Cell countsOrdered By: Donte Abebe on 12-11-2022 Erythrocyte distribution width (RBC) [Entitic vol] 44.6 fL 35.1-43.9 [facility] Erythrocyte distribution width (RBC) [Ratio] 14.4 % 11.6-14.6 [facility] MCH (RBC) [Entitic mass] 26.4 pg 27.0-32.0 [facility] MCHC Auto (RBC) [Mass/Vol]Or dered By: Donte Abebe on 12-11-2022 MCHC (RBC) [Mass/Vol] 30.7 g/dL 32-36 [facility] No Panel InformationOrdered By: Donte Abebe on 12-11-2022 Estimated Creatinine Clearance Calc 267.09 ml/min [facility] Estimated GFR (MDRD) Amer 506 mL/min >60 [facility] Comment on above: GFR Calc Estimated GFR (MDRD) Non-Af Amer 418 mL/min >60 [facility] Comment on above: Non- GFR Calc Platelets bldOrdered By: Sho Abebe on 12-11-2022 Platelets (Bld) [#/Vol] 183 10*3/uL 150-450 [facility] Serum or plasma calcium jacinta urement (mass/volume)Ordered By: Donte Abebe on 12-11-2022 Calcium [Mass/Vol] 7.8 mg/dL 8.5-10.1 [facility] Serum or plasma creatinine m easurement (mass/volume)Ordered By: Donte Abebe on 12-11-2022 Creatinine [Mass/Vol] 0.26 mg/dL 0.70-1.30 [facility] Comment on above: The validity of the calculated GFR & GFRAA in patients over 70 years has not been determined. Clinical correlation is essential. Serum or plasma urea nitroge n measurement (mass/volume)Ordered By: Donte Abebe on 12-11-2022 Urea nitrogen [Mass/Vol] 18 mg/dL 7-18 [facility] Thin prep Papanicolaou smear with manual screeningOrdered By: Donte Abebe on 12-11-2022 Thin prep Papanicolaou smear with manual screening 4 5-15 [facility] Absolute lymphocyte countOrd ered By: Miky Pio on 12-10-2022 Lymphocytes Auto (Unsp spec) [#/Vol] 2.23 10*3/uL 0.83-4.51 [facility] Basophil percentageOrdered B y: Miky Rahman on 12-10-2022 Basophil percentage 8.7 g/dL 6.4-8.2 [facility] Basophil percentage 0.20 mg/dL 0.20-1.00 [facility] Basophils (Bld) [#/Vol] 8.4 10*3/uL 2.0-7.7 [facility] Basophils/100 WBC (Bld) 0.2 % 0-1 [facility] Basophils/100 WBC (Bld) 72.2 % 47-70 [facility] Basophils/100 WBC (Bld) 2.1 % 0-5 [facility] Bilirubin [Mass/Vol] 0.20 mg/dL 0.20-1.00 [facility] Comment on above: For patients on eltr ombopag therapy, use of Dim[facility] [place] TBIL is not recommended. Chloride [Moles/Vol] 105 mmol/L 98-107 [facility] Eosinophils/100 WBC (Bld) 2.1 % 0-5 [facility] Glucose [Mass/Vol] 109 mg/dL 74-106 [facility] Comment on above: Fasting Glucose resu lt from 100 to 125 mg/dL suggests IMPAIRED HOMEOSTASIS per A.D.A. criteria. Neutrophils (Bld) [#/Vol] 8.4 10*3/uL 2.0-7.7 [facility] Neutrophils/100 WBC (Bld) 72.2 % 47-70 [facility] Potassium [Moles/Vol] 3.8 mmol/L 3.5-5.1 [facility] Protein [Mass/Vol] 8.7 g/dL 6.4-8.2 [facility] Sodium [Moles/Vol] 140 mmol/L 136-145 [facility] WBC (Bld) [#/Vol] 11.6 10*3/uL 4.4-11.0 [facility] Blood erythrocytes count (nu mber/volume)Ordered By: Miky Rahman on 12-10-2022 RBC (Bld) [#/Vol] 4.77 10*6/uL 4.6-6.2 [facility] Blood hemoglobin measurement (mass/volume)Ordered By: Miky Rahman on 12-10-2022 Hemoglobin (Bld) [Mass/Vol] 12.6 g/dL 13.0-16.5 [facility] Blood lymphocytes/100 leukoc ytesOrdered By: Miky Rahman on 12-10-2022 Lymphocytes/100 WBC (Bld) 19.2 % 19-41 [facility] Blood monocytes/100 leukocyt esOrdered By: Miky Rahman on 12-10-2022 Monocytes/100 WBC (Bld) 5.9 % 0-10 [facility] Blood platelet mean volumeOr dered By: Miky Rahman on 12-10-2022 Platelet mean volume (Bld) [Entitic vol] 10.0 fL 6.2-12.0 [facility] Determination of erythrocyte mean corpuscular volume (MCV)Ordered By: Miky Rahman on 12-10-2022 MCV (RBC) [Entitic vol] 83.4 fL 80-94 [facility] Hematocrit Auto (Bld) [Volum e fraction]Ordered By: Miky Rahman on 12-10-2022 Hematocrit (Bld) [Volume fraction] 39.8 % 40-54 [facility] INR in Blood by Coagulation assayOrdered By: Miky Rahman on 12-10-2022 INR Coag (Bld) [Relative time] 1.0 {INR} [facility] - Chemistry and C hemistry - challengeOrdered By: Miky Rahman on 12-10-2022 ALP [Catalytic activity/Vol] 144 U/L 45-117 [facility] ALT [Catalytic activity/Vol] 29 U/L 16-61 [facility] CO2 [Moles/Vol] 29.0 mmol/L 21.0-32.0 [facility] Globulin (S) [Mass/Vol] 5.4 g/dL 2.2-4.2 [facility] Lipase [Catalytic activity/Vol] 58 U/L 13-75 [facility] Comment on above: Please note:LIPASE r evised reference range effective 22. New Lipase methodology. Expected to produce lower values than the previous assay method. NEW Reference Range: 13 - 75 U/L Urea nitrogen/Creatinine [Mass ratio] 45.3 mg/mg 10-20 [facility] - CoagulationOrde red By: Miky Rahman on 12-10-2022 aPTT Coag (Bld) [Time] 35.6 s 24.1-36.2 [facility] PT Coag (PPP) [Time] 13.4 s 11.7-14.9 [facility] Laboratory - Hematology and Cell countsOrdered By: Miky Rahman on 12-10-2022 Erythrocyte distribution width (RBC) [Entitic vol] 42.8 fL 35.1-43.9 [facility] Erythrocyte distribution width (RBC) [Ratio] 14.0 % 11.6-14.6 [facility] Immature granulocytes/100 WBC (Bld) 0.400 % 0.0-0.9 [facility] Comment on above: IG% - Immature Granu locytes (promyelocytes, myelocytes and metamyelocytes) > 1% indicates that a LEFT SHIFT is Present. MCH (RBC) [Entitic mass] 26.4 pg 27.0-32.0 [facility] Nucleated RBC/100 WBC (Bld) [Ratio] 0 % 0-5 [facility] MCHC Auto (RBC) [Mass/Vol]Or dered By: Miky Rahman on 12-10-2022 MCHC (RBC) [Mass/Vol] 31.7 g/dL 32-36 [facility] No Panel InformationOrdered By: Miky Rahman on 12-10-2022 Estimated Creatinine Clearance Calc 198.41 ml/min [facility] Estimated GFR (MDRD) Amer 352 mL/min >60 [facility] Comment on above: GFR Calc Estimated GFR (MDRD) Non-Af Amer 291 mL/min >60 [facility] Comment on above: Non- GFR Calc 0.400 % 0.0-0.9 [facility] 0 % 0-5 [facility] 13.4 SECONDS 11.7-14.9 [facility] 35.6 Seconds 24.1-36.2 [facility] 5.4 g/dL 2.2-4.2 [facility] 58 U/L 13-75 [facility] 144 U/L 45-117 [facility] 29 U/L 16-61 [facility] Platelets bldOrdered By: Maximus Rahman on 12-10-2022 Platelets (Bld) [#/Vol] 228 10*3/uL 150-450 [facility] Serum or plasma albumin jacinta urement (mass/volume)Ordered By: Miky Rahman on 12-10-2022 Albumin [Mass/Vol] 3.3 g/dL 3.2-5.0 [facility] Serum or plasma albumin/glob ulin mass ratioOrdered By: Miky Rahman on 12-10-2022 Albumin/Globulin [Mass ratio] 0.6 {ratio} 0.9-2.4 [facility] Serum or plasma calcium jacinta urement (mass/volume)Ordered By: Miky Rahman on 12-10-2022 Calcium [Mass/Vol] 8.6 mg/dL 8.5-10.1 [facility] Serum or plasma creatinine m easurement (mass/volume)Ordered By: Miky Rahman on 12-10-2022 Creatinine [Mass/Vol] 0.35 mg/dL 0.70-1.30 [facility] Comment on above: The validity of the calculated GFR & GFRAA in patients over 70 years has not been determined. Clinical correlation is essential. Serum or plasma urea nitroge n measurement (mass/volume)Ordered By: Miky Rahman on 12-10-2022 Urea nitrogen [Mass/Vol] 16 mg/dL 7-18 [facility] Thin prep Papanicolaou smear with manual screeningOrdered By: Miky Rahman on 12-10-2022 Thin prep Papanicolaou smear with manual screening 19 U/L 15-37 [facility] Thin prep Papanicolaou smear with manual screening 6 5-15 [facility] Absolute lymphocyte countOrd ered By: Torey Huffman on 12-07-2022 Lymphocytes Auto (Unsp spec) [#/Vol] 2.35 10*3/uL 0.83-4.51 [facility] Basophil percentageOrdered B y: Torey Huffman on 12-07-2022 Basophil percentage 100 mg/dL 74-106 [facility] Basophil percentage 139 mmol/L 136-145 [facility] Basophil percentage 3.5 mmol/L 3.5-5.1 [facility] Basophil percentage 104 mmol/L 98-107 [facility] Basophils (Bld) [#/Vol] 6.7 10*3/uL 4.4-11.0 [facility] Basophils (Bld) [#/Vol] 3.4 10*3/uL 2.0-7.7 [facility] Basophils/100 WBC (Bld) 0.3 % 0-1 [facility] Basophils/100 WBC (Bld) 50.3 % 47-70 [facility] Basophils/100 WBC (Bld) 5.3 % 0-5 [facility] Chloride [Moles/Vol] 104 mmol/L 98-107 [facility] Eosinophils/100 WBC (Bld) 5.3 % 0-5 [facility] Glucose [Mass/Vol] 100 mg/dL 74-106 [facility] Comment on above: Fasting Glucose resu lt from 100 to 125 mg/dL suggests IMPAIRED HOMEOSTASIS per A.D.A. criteria. Neutrophils (Bld) [#/Vol] 3.4 10*3/uL 2.0-7.7 [facility] Neutrophils/100 WBC (Bld) 50.3 % 47-70 [facility] Potassium [Moles/Vol] 3.5 mmol/L 3.5-5.1 [facility] Sodium [Moles/Vol] 139 mmol/L 136-145 [facility] WBC (Bld) [#/Vol] 6.7 10*3/uL 4.4-11.0 [facility] Blood erythrocytes count (nu mber/volume)Ordered By: Torey Huffman on 12-07-2022 RBC (Bld) [#/Vol] 4.10 10*6/uL 4.6-6.2 [facility] Blood hemoglobin measurement (mass/volume)Ordered By: Torey Huffman on 12-07-2022 Hemoglobin (Bld) [Mass/Vol] 10.8 g/dL 13.0-16.5 [facility] Blood lymphocytes/100 leukoc ytesOrdered By: Torey Huffman on 12-07-2022 Lymphocytes/100 WBC (Bld) 34.9 % 19-41 [facility] Blood monocytes/100 leukocyt esOrdered By: Torey Huffman on 12-07-2022 Monocytes/100 WBC (Bld) 8.9 % 0-10 [facility] Blood platelet mean volumeOr dered By: Torey Huffman on 12-07-2022 Platelet mean volume (Bld) [Entitic vol] 10.7 fL 6.2-12.0 [facility] Determination of erythrocyte mean corpuscular volume (MCV)Ordered By: Torey Huffman on 12-07-2022 MCV (RBC) [Entitic vol] 86.3 fL 80-94 [facility] Hematocrit Auto (Bld) [Volum e fraction]Ordered By: Torey Huffman on 12-07-2022 Hematocrit (Bld) [Volume fraction] 35.4 % 40-54 [facility] - Chemistry and C hemistry - challengeOrdered By: Torey Hfufman on 12-07-2022 CO2 [Moles/Vol] 30.0 mmol/L 21.0-32.0 [facility] Urea nitrogen/Creatinine [Mass ratio] 58.1 mg/mg 10-20 [facility] - Hematology and Cell countsOrdered By: Torey Huffman on 12-07-2022 Erythrocyte distribution width (RBC) [Entitic vol] 43.8 fL 35.1-43.9 [facility] Erythrocyte distribution width (RBC) [Ratio] 13.9 % 11.6-14.6 [facility] Immature granulocytes/100 WBC (Bld) 0.300 % 0.0-0.9 [facility] Comment on above: IG% - Immature Granu locytes (promyelocytes, myelocytes and metamyelocytes) > 1% indicates that a LEFT SHIFT is Present. MCH (RBC) [Entitic mass] 26.3 pg 27.0-32.0 [facility] Nucleated RBC/100 [facility] (Bld) [Ratio] 0 % [facility] ([facility] [Mass/Vol]Or dered By: Torey Huffman on 12-07-2022 MCHC (RBC) [Mass/Vol] 30.5 g/dL 32-36 [facility] No Panel InformationOrdered By: Torey Huffman on 12-07-2022 Estimated GFR (MDRD) Amer 385 mL/min >60 [facility] Comment on above: GFR Calc Estimated GFR (MDRD) Non-Af Amer 318 mL/min >60 [facility] Comment on above: Non- GFR Calc 26.3 pg 27.0-32.0 [facility] 13.9 % 11.6-14.6 [facility] 43.8 fl 35.1-43.9 [facility] 0.300 % 0.0-0.9 [facility] 0 % 0-5 [facility] 318 mL/min >60 [facility] 385 mL/min >60 [facility] 58.1 RATIO 10-20 [facility] 30.0 mmol/L 21.0-32.0 [facility] Platelets bldOrdered By: Mellissa Huffman on 12-07-2022 Platelets (Bld) [#/Vol] 208 10*3/uL 150-450 [facility] Serum or plasma calcium jacinta urement (mass/volume)Ordered By: Torey Huffman on 12-07-2022 Calcium [Mass/Vol] 8.3 mg/dL 8.5-10.1 [facility] Serum or plasma creatinine m easurement (mass/volume)Ordered By: Torey Huffman on 12-07-2022 Creatinine [Mass/Vol] 0.33 mg/dL 0.70-1.30 [facility] Comment on above: The validity of the calculated GFR & GFRAA in patients over 70 years has not been determined. Clinical correlation is essential. Serum or plasma urea nitroge n measurement (mass/volume)Ordered By: Torey Huffman on 12-07-2022 Urea nitrogen [Mass/Vol] 19 mg/dL 7-18 [facility] Thin prep Papanicolaou smear with manual screeningOrdered By: Torey Huffman on 10-16-2023 Thin prep Papanicolaou smear with manual screening 5 5-15 [facility] Absolute lymphocyte countOrd ered By: Torey Huffman on 11-12-2022 Lymphocytes Auto (Unsp spec) [#/Vol] 2.33 10*3/uL 0.83-4.51 [facility] Basophil percentageOrdered B y: Torey Huffman on 11-12-2022 Basophils/100 WBC (Bld) 0.1 % 0-1 [facility] Chloride [Moles/Vol] 104 mmol/L 98-107 [facility] Eosinophils/100 WBC (Bld) 4.2 % 0-5 [facility] Glucose [Mass/Vol] 99 mg/dL 74-106 [facility] Neutrophils (Bld) [#/Vol] 4.4 10*3/uL 2.0-7.7 [facility] Neutrophils/100 WBC (Bld) 56.0 % 47-70 [facility] Potassium [Moles/Vol] 3.6 mmol/L 3.5-5.1 [facility] Sodium [Moles/Vol] 140 mmol/L 136-145 [facility] WBC (Bld) [#/Vol] 7.8 10*3/uL 4.4-11.0 [facility] Blood erythrocytes count (nu mber/volume)Ordered By: Torey Huffman on 11-12-2022 RBC (Bld) [#/Vol] 4.11 10*6/uL 4.6-6.2 [facility] Blood hemoglobin measurement (mass/volume)Ordered By: Torey Huffman on 11-12-2022 Hemoglobin (Bld) [Mass/Vol] 10.9 g/dL 13.0-16.5 [facility] Blood lymphocytes/100 leukoc ytesOrdered By: Torey Huffman on 11-12-2022 Lymphocytes/100 WBC (Bld) 29.7 % 19-41 [facility] Blood monocytes/100 leukocyt esOrdered By: Torey Huffman on 11-12-2022 Monocytes/100 WBC (Bld) 9.7 % 0-10 [facility] Blood platelet mean volumeOr dered By: Torey Huffman on 11-12-2022 Platelet mean volume (Bld) [Entitic vol] 10.3 fL 6.2-12.0 [facility] Determination of erythrocyte mean corpuscular volume (MCV)Ordered By: Torey Huffman on 11-12-2022 MCV (RBC) [Entitic vol] 86.6 fL 80-94 [facility] Hematocrit Auto (Bld) [Volum e fraction]Ordered By: Torey Huffman on 11-12-2022 Hematocrit (Bld) [Volume fraction] 35.6 % 40-54 [facility] - Chemistry and C hemistry - challengeOrdered By: Torey Huffman on 11-12-2022 CO2 [Moles/Vol] 31.0 mmol/L 21.0-32.0 [facility] Urea nitrogen/Creatinine [Mass ratio] 81.1 mg/mg 10-20 [facility] - Hematology and Cell countsOrdered By: Torey Huffman on 11-12-2022 Erythrocyte distribution width (RBC) [Entitic vol] 43.8 fL 35.1-43.9 [facility] Erythrocyte distribution width (RBC) [Ratio] 13.9 % 11.6-14.6 [facility] Immature granulocytes/100 WBC (Bld) 0.300 % 0.0-0.9 [facility] Comment on above: IG% - Immature Granu locytes (promyelocytes, myelocytes and metamyelocytes) > 1% indicates that a LEFT SHIFT is Present. MCH (RBC) [Entitic mass] 26.5 pg 27.0-32.0 [facility] Nucleated RBC/100 WBC (Bld) [Ratio] 0 % 0-5 [facility] MCHC Auto (RBC) [Mass/Vol]Or dered By: Torey Huffman on 11-12-2022 MCHC (RBC) [Mass/Vol] 30.6 g/dL 32-36 [facility] No Panel InformationOrdered By: Torey Huffman on 11-12-2022 Estimated GFR (MDRD) Amer 743 mL/min >60 [facility] Comment on above: GFR Calc Estimated GFR (MDRD) Non-Af Amer 614 mL/min >60 [facility] Comment on above: Non- GFR Calc Platelets bldOrdered By: Mellissa Huffman on 11-12-2022 Platelets (Bld) [#/Vol] 212 10*3/uL 150-450 [facility] Serum or plasma calcium jacinta urement (mass/volume)Ordered By: Torey Huffman on 11-12-2022 Calcium [Mass/Vol] 8.4 mg/dL 8.5-10.1 [facility] Serum or plasma creatinine m easurement (mass/volume)Ordered By: Torey Huffman on 11-12-2022 Creatinine [Mass/Vol] 0.18 mg/dL 0.70-1.30 [facility] Comment on above: The validity of the calculated GFR & GFRAA in patients over 70 years has not been determined. Clinical correlation is essential. Serum or plasma urea nitroge n measurement (mass/volume)Ordered By: Torey Huffman on 11-12-2022 Urea nitrogen [Mass/Vol] 15 mg/dL 7-18 [facility] Thin prep Papanicolaou smear with manual screeningOrdered By: Torey Huffman on 11-12-2022 Thin prep Papanicolaou smear with manual screening 5 5-15 [facility] Absolute lymphocyte countOrd ered By: Torey Huffman on 10-14-2022 Lymphocytes Auto (Unsp spec) [#/Vol] 2.10 10*3/uL 0.83-4.51 [facility] Basophil percentageOrdered B y: Torey Huffman on 10-14-2022 Basophils/100 WBC (Bld) 0.3 % 0-1 [facility] Chloride [Moles/Vol] 103 mmol/L 98-107 [facility] Eosinophils/100 WBC (Bld) 3.8 % 0-5 [facility] Glucose [Mass/Vol] 87 mg/dL 74-106 [facility] Neutrophils (Bld) [#/Vol] 3.5 10*3/uL 2.0-7.7 [facility] Neutrophils/100 WBC (Bld) 54.4 % 47-70 [facility] Potassium [Moles/Vol] 3.5 mmol/L 3.5-5.1 [facility] Sodium [Moles/Vol] 137 mmol/L 136-145 [facility] WBC (Bld) [#/Vol] 6.4 10*3/uL 4.4-11.0 [facility] Blood erythrocytes count (nu mber/volume)Ordered By: Torey Huffman on 10-14-2022 RBC (Bld) [#/Vol] 4.11 10*6/uL 4.6-6.2 [facility] Blood hemoglobin measurement (mass/volume)Ordered By: Torey Huffman on 10-14-2022 Hemoglobin (Bld) [Mass/Vol] 11.2 g/dL 13.0-16.5 [facility] Blood lymphocytes/100 leukoc ytesOrdered By: Torey Huffman on 10-14-2022 Lymphocytes/100 WBC (Bld) 32.9 % 19-41 [facility] Blood monocytes/100 leukocyt esOrdered By: Torey Huffman on 10-14-2022 Monocytes/100 WBC (Bld) 8.3 % 0-10 [facility] Blood platelet mean volumeOr dered By: Torey Huffman on 10-14-2022 Platelet mean volume (Bld) [Entitic vol] 10.3 fL 6.2-12.0 [facility] Determination of erythrocyte mean corpuscular volume (MCV)Ordered By: Torey Huffman on 10-14-2022 MCV (RBC) [Entitic vol] 83.2 fL 80-94 [facility] Hematocrit Auto (Bld) [Volum e fraction]Ordered By: Torey Huffman on 10-14-2022 Hematocrit (Bld) [Volume fraction] 34.2 % 40-54 [facility] - Chemistry and C hemistry - challengeOrdered By: Torey Huffman on 10-14-2022 CO2 [Moles/Vol] 28.0 mmol/L 21.0-32.0 [facility] Urea nitrogen/Creatinine [Mass ratio] 48.4 mg/mg 10-20 [facility] - Hematology and Cell countsOrdered By: Torey Huffman on 10-14-2022 Erythrocyte distribution width (RBC) [Entitic vol] 41.8 fL 35.1-43.9 [facility] Erythrocyte distribution width (RBC) [Ratio] 13.7 % 11.6-14.6 [facility] Immature granulocytes/100 WBC (Bld) 0.300 % 0.0-0.9 [facility] Comment on above: IG% - Immature Granu locytes (promyelocytes, myelocytes and metamyelocytes) > 1% indicates that a LEFT SHIFT is Present. MCH (RBC) [Entitic mass] 27.3 pg 27.0-32.0 [facility] Nucleated RBC/100 WBC (Bld) [Ratio] 0 % 0-5 [facility] MCHC Auto (RBC) [Mass/Vol]Or dered By: Torey Huffman on 10-14-2022 MCHC (RBC) [Mass/Vol] 32.7 g/dL 32-36 [facility] No Panel InformationOrdered By: Torey Huffman on 10-14-2022 Estimated GFR (MDRD) Amer 444 mL/min >60 [facility] Comment on above: GFR Calc Estimated GFR (MDRD) Non-Af Amer 367 mL/min >60 [facility] Comment on above: Non- GFR Calc Platelets bldOrdered By: Mellissa Huffman on 10-14-2022 Platelets (Bld) [#/Vol] 211 10*3/uL 150-450 [facility] Serum or plasma calcium jacinta urement (mass/volume)Ordered By: Torey Huffman on 10-14-2022 Calcium [Mass/Vol] 8.6 mg/dL 8.5-10.1 [facility] Serum or plasma creatinine m easurement (mass/volume)Ordered By: Torey Huffman on 10-14-2022 Creatinine [Mass/Vol] 0.29 mg/dL 0.70-1.30 [facility] Comment on above: The validity of the calculated GFR & GFRAA in patients over 70 years has not been determined. Clinical correlation is essential. Serum or plasma urea nitroge n measurement (mass/volume)Ordered By: Torey Huffman on 10-14-2022 Urea nitrogen [Mass/Vol] 14 mg/dL 7-18 [facility] Thin prep Papanicolaou smear with manual screeningOrdered By: Torey Huffman on 10-14-2022 Thin prep Papanicolaou smear with manual screening 6 5-15 [facility] Absolute lymphocyte countOrd ered By: Chente Conn on 09-14-2022 Lymphocytes Auto (Unsp spec) [#/Vol] 1.95 10*3/uL 0.83-4.51 [facility] Basophil percentageOrdered B y: Chente Conn on 09-14-2022 Basophil percentage 21.5 ug/mL 10.0-40.0 [facility] Basophils/100 WBC (Bld) 0.3 % 0-1 [facility] Chloride [Moles/Vol] 104 mmol/L 98-107 [facility] Eosinophils/100 WBC (Bld) 3.7 % 0-5 [facility] Glucose [Mass/Vol] 91 mg/dL 74-106 [facility] Neutrophils (Bld) [#/Vol] 3.3 10*3/uL 2.0-7.7 [facility] Neutrophils/100 WBC (Bld) 54.7 % 47-70 [facility] Potassium [Moles/Vol] 4.0 mmol/L 3.5-5.1 [facility] Sodium [Moles/Vol] 138 mmol/L 136-145 [facility] WBC (Bld) [#/Vol] 6.0 10*3/uL 4.4-11.0 [facility] Blood erythrocytes count (nu mber/volume)Ordered By: Chente Conn on 09-14-2022 RBC (Bld) [#/Vol] 3.87 10*6/uL 4.6-6.2 [facility] Blood hemoglobin measurement (mass/volume)Ordered By: Chente Conn on 09-14-2022 Hemoglobin (Bld) [Mass/Vol] 10.5 g/dL 13.0-16.5 [facility] Blood lymphocytes/100 leukoc ytesOrdered By: Chente Conn on 09-14-2022 Lymphocytes/100 WBC (Bld) 32.4 % 19-41 [facility] Blood monocytes/100 leukocyt esOrdered By: Chente Conn on 09-14-2022 Monocytes/100 WBC (Bld) 8.7 % 0-10 [facility] Blood platelet mean volumeOr dered By: Chente Conn on 09-14-2022 Platelet mean volume (Bld) [Entitic vol] 10.2 fL 6.2-12.0 [facility] Determination of erythrocyte mean corpuscular volume (MCV)Ordered By: Chente Conn on 09-14-2022 MCV (RBC) [Entitic vol] 86.8 fL 80-94 [facility] Hematocrit Auto (Bld) [Volum e fraction]Ordered By: Chente Conn on 09-14-2022 Hematocrit (Bld) [Volume fraction] 33.6 % 40-54 [facility] - Chemistry and C hemistry - challengeOrdered By: Chente Conn on 09-14-2022 CO2 [Moles/Vol] 30.0 mmol/L 21.0-32.0 [facility] Urea nitrogen/Creatinine [Mass ratio] 65.6 mg/mg 10-20 [facility] - Hematology and Cell countsOrdered By: Chente Conn on 09-14-2022 Erythrocyte distribution width (RBC) [Entitic vol] 44.9 fL 35.1-43.9 [facility] Erythrocyte distribution width (RBC) [Ratio] 14.1 % 11.6-14.6 [facility] Immature granulocytes/100 WBC (Bld) 0.200 % 0.0-0.9 [facility] Comment on above: IG% - Immature Granu locytes (promyelocytes, myelocytes and metamyelocytes) > 1% indicates that a LEFT SHIFT is Present. MCH (RBC) [Entitic mass] 27.1 pg 27.0-32.0 [facility] Nucleated RBC/100 WBC (Bld) [Ratio] 0 % 0-5 [facility] MCHC Auto (RBC) [Mass/Vol]Or dered By: Chente Conn on 09-14-2022 MCHC (RBC) [Mass/Vol] 31.3 g/dL 32-36 [facility] No Panel InformationOrdered By: Chente Conn on 09-14-2022 Estimated GFR (MDRD) Amer 540 mL/min >60 [facility] Comment on above: GFR Calc Estimated GFR (MDRD) Non-Af Amer 447 mL/min >60 [facility] Comment on above: Non- GFR Calc Platelets bldOrdered By: Darwin Conn on 09-14-2022 Platelets (Bld) [#/Vol] 197 10*3/uL 150-450 [facility] Serum or plasma calcium jacinta urement (mass/volume)Ordered By: Chente Conn on 09-14-2022 Calcium [Mass/Vol] 8.2 mg/dL 8.5-10.1 [facility] Serum or plasma creatinine m easurement (mass/volume)Ordered By: Chente Conn on 09-14-2022 Creatinine [Mass/Vol] 0.24 mg/dL 0.70-1.30 [facility] Comment on above: The validity of the calculated GFR & GFRAA in patients over 70 years has not been determined. Clinical correlation is essential. Serum or plasma urea nitroge n measurement (mass/volume)Ordered By: Chente Conn on 09-14-2022 Urea nitrogen [Mass/Vol] 16 mg/dL 7-18 [facility] Thin prep Papanicolaou smear with manual screeningOrdered By: Chente Conn on 09-14-2022 Thin prep Papanicolaou smear with manual screening 4 5-15 [facility] Absolute lymphocyte countOrd ered By: Torey Huffman on 08-17-2022 Lymphocytes Auto (Unsp spec) [#/Vol] 2.34 10*3/uL 0.83-4.51 [facility] Basophil percentageOrdered B y: Torey Huffman on 08-17-2022 Basophils/100 WBC (Bld) 0.3 % 0-1 [facility] Chloride [Moles/Vol] 103 mmol/L 98-107 [facility] Eosinophils/100 WBC (Bld) 3.6 % 0-5 [facility] Glucose [Mass/Vol] 87 mg/dL 74-106 [facility] Neutrophils (Bld) [#/Vol] 2.9 10*3/uL 2.0-7.7 [facility] Neutrophils/100 WBC (Bld) 47.8 % 47-70 [facility] Potassium [Moles/Vol] 3.9 mmol/L 3.5-5.1 [facility] Sodium [Moles/Vol] 137 mmol/L 136-145 [facility] WBC (Bld) [#/Vol] 6.1 10*3/uL 4.4-11.0 [facility] Blood erythrocytes count (nu mber/volume)Ordered By: Torey Huffman on 08-17-2022 RBC (Bld) [#/Vol] 3.97 10*6/uL 4.6-6.2 [facility] Blood hemoglobin measurement (mass/volume)Ordered By: Torey Huffman on 08-17-2022 Hemoglobin (Bld) [Mass/Vol] 10.9 g/dL 13.0-16.5 [facility] Blood lymphocytes/100 leukoc ytesOrdered By: Torey Huffman on 08-17-2022 Lymphocytes/100 WBC (Bld) 38.1 % 19-41 [facility] Blood monocytes/100 leukocyt esOrdered By: Torey Huffman on 08-17-2022 Monocytes/100 WBC (Bld) 9.9 % 0-10 [facility] Blood platelet mean volumeOr dered By: Torey Huffman on 08-17-2022 Platelet mean volume (Bld) [Entitic vol] 10.0 fL 6.2-12.0 [facility] Determination of erythrocyte mean corpuscular volume (MCV)Ordered By: Torey Huffman on 08-17-2022 MCV (RBC) [Entitic vol] 86.1 fL 80-94 [facility] Hematocrit Auto (Bld) [Volum e fraction]Ordered By: Torey Huffman on 08-17-2022 Hematocrit (Bld) [Volume fraction] 34.2 % 40-54 [facility] - Chemistry and C hemistry - challengeOrdered By: Torey Huffman on 08-17-2022 CO2 [Moles/Vol] 29.0 mmol/L 21.0-32.0 [facility] Urea nitrogen/Creatinine [Mass ratio] 51.6 mg/mg 10-20 [facility] - Hematology and Cell countsOrdered By: Torey Huffman on 08-17-2022 Erythrocyte distribution width (RBC) [Entitic vol] 42.5 fL 35.1-43.9 [facility] Erythrocyte distribution width (RBC) [Ratio] 13.6 % 11.6-14.6 [facility] Immature granulocytes/100 WBC (Bld) 0.300 % 0.0-0.9 [facility] Comment on above: IG% - Immature Granu locytes (promyelocytes, myelocytes and metamyelocytes) > 1% indicates that a LEFT SHIFT is Present. MCH (RBC) [Entitic mass] 27.5 pg 27.0-32.0 [facility] Nucleated RBC/100 WBC (Bld) [Ratio] 0 % 0-5 [facility] MCHC Auto (RBC) [Mass/Vol]Or dered By: Torey Huffman on 08-17-2022 MCHC (RBC) [Mass/Vol] 31.9 g/dL 32-36 [facility] No Panel InformationOrdered By: Torey Huffman on 08-17-2022 Estimated GFR (MDRD) Amer 410 mL/min >60 [facility] Comment on above: GFR Calc Estimated GFR (MDRD) Non-Af Amer 339 mL/min >60 [facility] Comment on above: Non- GFR Calc Platelets bldOrdered By: Mellissa Huffman on 08-17-2022 Platelets (Bld) [#/Vol] 194 10*3/uL 150-450 [facility] Serum or plasma calcium jacinta urement (mass/volume)Ordered By: Torey Huffman on 08-17-2022 Calcium [Mass/Vol] 8.7 mg/dL 8.5-10.1 [facility] Serum or plasma creatinine m easurement (mass/volume)Ordered By: Torey Huffman on 08-17-2022 Creatinine [Mass/Vol] 0.31 mg/dL 0.70-1.30 [facility] Comment on above: The validity of the calculated GFR & GFRAA in patients over 70 years has not been determined. Clinical correlation is essential. Serum or plasma urea nitroge n measurement (mass/volume)Ordered By: Torey Huffman on 08-17-2022 Urea nitrogen [Mass/Vol] 16 mg/dL 7-18 [facility] Thin prep Papanicolaou smear with manual screeningOrdered By: Torey Huffman on 08-17-2022 Thin prep Papanicolaou smear with manual screening 5 5-15 [facility] Absolute lymphocyte countOrd ered By: Torey Huffman on 07-22-2022 Lymphocytes Auto (Unsp spec) [#/Vol] 2.12 10*3/uL 0.83-4.51 [facility] Basophil percentageOrdered B y: Torey Huffman on 07-22-2022 Basophils/100 WBC (Bld) 0.3 % 0-1 [facility] Eosinophils/100 WBC (Bld) 4.9 % 0-5 [facility] Neutrophils (Bld) [#/Vol] 2.9 10*3/uL 2.0-7.7 [facility] Neutrophils/100 WBC (Bld) 49.2 % 47-70 [facility] WBC (Bld) [#/Vol] 5.9 10*3/uL 4.4-11.0 [facility] Basophil percentageOrdered B y: Chente Conn on 07-22-2022 Chloride [Moles/Vol] 102 mmol/L 98-107 [facility] Glucose [Mass/Vol] 80 mg/dL 74-106 [facility] Potassium [Moles/Vol] 3.9 mmol/L 3.5-5.1 [facility] Sodium [Moles/Vol] 139 mmol/L 136-145 [facility] Blood erythrocytes count (nu mber/volume)Ordered By: Torey Huffman on 07-22-2022 RBC (Bld) [#/Vol] 3.96 10*6/uL 4.6-6.2 [facility] Blood hemoglobin measurement (mass/volume)Ordered By: Torey Huffman on 07-22-2022 Hemoglobin (Bld) [Mass/Vol] 11.1 g/dL 13.0-16.5 [facility] Blood lymphocytes/100 leukoc ytesOrdered By: Torey Huffman on 07-22-2022 Lymphocytes/100 WBC (Bld) 35.9 % 19-41 [facility] Blood monocytes/100 leukocyt esOrdered By: Torey Huffman on 07-22-2022 Monocytes/100 WBC (Bld) 9.5 % 0-10 [facility] Blood platelet mean volumeOr dered By: Torey Huffman on 07-22-2022 Platelet mean volume (Bld) [Entitic vol] 9.9 fL 6.2-12.0 [facility] Determination of erythrocyte mean corpuscular volume (MCV)Ordered By: Torey Huffman on 07-22-2022 MCV (RBC) [Entitic vol] 84.8 fL 80-94 [facility] Hematocrit Auto (Bld) [Volum e fraction]Ordered By: Torey Huffman on 07-22-2022 Hematocrit (Bld) [Volume fraction] 33.6 % 40-54 [facility] - Chemistry and C hemistry - challengeOrdered By: Chente Conn on 07-22-2022 CO2 [Moles/Vol] 30.0 mmol/L 21.0-32.0 [facility] Urea nitrogen/Creatinine [Mass ratio] 36.2 mg/mg 10-20 [facility] - Hematology and Cell countsOrdered By: Torey Huffman on 07-22-2022 Erythrocyte distribution width (RBC) [Entitic vol] 42.1 fL 35.1-43.9 [facility] Erythrocyte distribution width (RBC) [Ratio] 13.5 % 11.6-14.6 [facility] Immature granulocytes/100 WBC (Bld) 0.200 % 0.0-0.9 [facility] Comment on above: IG% - Immature Granu locytes (promyelocytes, myelocytes and metamyelocytes) > 1% indicates that a LEFT SHIFT is Present. MCH (RBC) [Entitic mass] 28.0 pg 27.0-32.0 [facility] Nucleated RBC/100 WBC (Bld) [Ratio] 0 % 0-5 [facility] MCHC Auto (RBC) [Mass/Vol]Or dered By: Torey Huffman on 07-22-2022 MCHC (RBC) [Mass/Vol] 33.0 g/dL 32-36 [facility] No Panel InformationOrdered By: Chente Conn on 07-22-2022 Estimated GFR (MDRD) Amer 346 mL/min >60 [facility] Comment on above: GFR Calc Estimated GFR (MDRD) Non-Af Amer 286 mL/min >60 [facility] Comment on above: Non- GFR Calc Platelets bldOrdered By: Mellissa Huffman on 07-22-2022 Platelets (Bld) [#/Vol] 171 10*3/uL 150-450 [facility] Serum or plasma calcium jacinta urement (mass/volume)Ordered By: Chente Conn on 07-22-2022 Calcium [Mass/Vol] 8.6 mg/dL 8.5-10.1 [facility] Serum or plasma creatinine m easurement (mass/volume)Ordered By: Chente Conn on 07-22-2022 Creatinine [Mass/Vol] 0.36 mg/dL 0.70-1.30 [facility] Comment on above: The validity of the calculated GFR & GFRAA in patients over 70 years has not been determined. Clinical correlation is essential. Serum or plasma urea nitroge n measurement (mass/volume)Ordered By: Chente Conn on 07-22-2022 Urea nitrogen [Mass/Vol] 13 mg/dL 7-18 [facility] Thin prep Papanicolaou smear with manual screeningOrdered By: Chente Conn on 07-22-2022 Thin prep Papanicolaou smear with manual screening 7 5-15 [facility] CNPNon 06-30-2022 [facility] Telephone ([facility]) -------- KRISS MICHAEL ([id number]) 1980 M Date Time Provider Department 06/30/22 STOMA THERAPY [facility] During your visit today, we recorded the following information about you: Amber Monreal RN 06/30/2022 3:53 PM Signed [phone] Pt's mother called. She would like to discuss pt's stoma prolapse. Chichi Fowler RN 06/30/2022 4:48 PM Signed [facility] nursing returned patient's mother Yue message [...] e-mail. Mother will give order numbers to [facility]. Also recommended can apply stomahesive powder on [...] [R50.9] 01/13/2013 (more content not included)... [facility] Absolute lymphocyte countOrd ered By: Dr. De La Rosa on 06-22-2022 Lymphocytes Auto (Unsp spec) [#/Vol] 1.42 10*3/uL 0.83-4.51 [facility] Basophil percentageOrdered B y: Dr. De La Rosa on 06-22-2022 Basophil percentage 0-5 SEEN /hpf 0-5 [facility] Basophil percentage 82 mg/dL 74-106 [facility] Basophil percentage 7.2 g/dL 6.4-8.2 [facility] Basophil percentage 0.10 mg/dL 0.20-1.00 [facility] Basophil percentage 139 mmol/L 136-145 [facility] Basophil percentage 3.5 mmol/L 3.5-5.1 [facility] Basophil percentage 107 mmol/L 98-107 [facility] Basophil percentage 1.3 mmol/L 0.4-2.0 [facility] Basophils (Bld) [#/Vol] 6.6 10*3/uL 4.4-11.0 [facility] Basophils (Bld) [#/Vol] 4.5 10*3/uL 2.0-7.7 [facility] Basophils/100 WBC (Bld) 67.2 % 47-70 [facility] Basophils/100 WBC (Bld) 2.4 % 0-5 [facility] Basophils/100 WBC (Bld) 0.2 % 0-1 [facility] Basophil percentageOrdered B y: Siddharth De La Rosa on 06-22-2022 Bilirubin [Mass/Vol] 0.10 mg/dL 0.20-1.[address] [facility] Comment on above: For patients on eltr ombopag therapy, use of Dimension [place] TBIL is not recommended. Chloride [Moles/Vol] 107 mmol/L 98-107 [facility] Eosinophils/100 WBC (Bld) 2.4 % 0-5 [facility] Glucose [Mass/Vol] 82 mg/dL 74-106 [facility] Lactate [Moles/Vol] 1.3 mmol/L 0.4-2.0 [facility] Neutrophils (Bld) [#/Vol] 4.5 10*3/uL 2.0-7.7 [facility] Neutrophils/100 WBC (Bld) 67.2 % 47-70 [facility] Potassium [Moles/Vol] 3.5 mmol/L 3.5-5.1 [facility] Protein [Mass/Vol] 7.2 g/dL 6.4-8.2 [facility] Sodium [Moles/Vol] 139 mmol/L 136-145 [facility] WBC (Bld) [#/Vol] 6.6 10*3/uL 4.4-11.0 [facility] Bilirubin Test strip Ql (U)O rdered By: Dr. De La Rosa on 06-22-2022 Bilirubin Ql (U) Negative Negative [facility] Blood erythrocytes count (nu mber/volume)Ordered By: Dr. De La Rosa on 06-22-2022 RBC (Bld) [#/Vol] 4.21 10*6/uL 4.6-6.2 [facility] Blood hemoglobin measurement (mass/volume)Ordered By: Dr. De La Rosa on 06-22-2022 Hemoglobin (Bld) [Mass/Vol] 11.5 g/dL 13.0-16.5 [facility] Blood lymphocytes/100 leukoc ytesOrdered By: Dr. De La Rosa on 06-22-2022 Lymphocytes/100 WBC (Bld) 21.5 % 19-41 [facility] Blood monocytes/100 leukocyt esOrdered By: Dr. De La Rosa on 06-22-2022 Monocytes/100 WBC (Bld) 8.5 % 0-10 [facility] Blood platelet mean volumeOr dered By: Dr. De La Rosa on 06-22-2022 Platelet mean volume (Bld) [Entitic vol] 10.0 fL 6.2-12.0 [facility] Culture, urineOrdered By: Daina De La Rosa on 06-22-2022 Bacteria identified Cx Nom (U) Culture exhibits no growth. [facility] Determination of erythrocyte mean corpuscular volume (MCV)Ordered By: Dr. De La Rosa on 06-22-2022 MCV (RBC) [Entitic vol] 86.7 fL 80-94 [facility] Hematocrit Auto (Bld) [Volum e fraction]Ordered By: Dr. De La Rosa on 06-22-2022 Hematocrit (Bld) [Volume fraction] 36.5 % 40-54 [facility] INR in Blood by Coagulation assayOrdered By: Dr. De La Rosa on 06-22-2022 INR Coag (Bld) [Relative time] 1.0 {INR} [facility] Ketones Test strip Ql (U)Ord ered By: Dr. De La Rosa on 06-22-2022 Ketones Ql (U) 5 mg/dl Negative [facility] - Chemistry and C hemistry - challengeOrdered By: Siddharth De La Rosa on 06-22-2022 ALP [Catalytic activity/Vol] 135 U/L 45-117 [facility] ALT [Catalytic activity/Vol] 19 U/L 16-61 [facility] CO2 [Moles/Vol] 25.0 mmol/L 21.0-32.0 [facility] Globulin (S) [Mass/Vol] 4.3 g/dL 2.2-4.2 [facility] Urea nitrogen/Creatinine [Mass ratio] 48.6 mg/mg 10-20 [facility] - CoagulationOrde red By: Siddharth De La Rosa on 06-22-2022 aPTT Coag (Bld) [Time] 31.6 s 24.1-36.2 [facility] PT Coag (PPP) [Time] 13.0 s 11.7-14.9 [facility] Laboratory - Hematology and Cell countsOrdered By: Siddharth De La Rosa on 06-22-2022 Erythrocyte distribution width (RBC) [Entitic vol] 45.2 fL 35.1-43.9 [facility] Erythrocyte distribution width (RBC) [Ratio] 14.3 % 11.6-14.6 [facility] Immature granulocytes/100 WBC (Bld) 0.200 % 0.0-0.9 [facility] Comment on above: IG% - Immature Granu locytes (promyelocytes, myelocytes and metamyelocytes) > 1% indicates that a LEFT SHIFT is Present. MCH (RBC) [Entitic mass] 27.3 pg 27.0-32.0 [facility] Nucleated RBC/100 WBC (Bld) [Ratio] 0 % 0-5 [facility] - Microbiology an d Antimicrobial susceptibilityOrdered By: Siddharth De La Rosa on 06-22-2022 Bacteria identified Cx Nom (Bld) No growth in 5 days. [facility] MCHC Auto (RBC) [Mass/Vol]Or dered By: Dr. De La Rosa on 06-22-2022 MCHC (RBC) [Mass/Vol] 31.5 g/dL 32-36 [facility] Mucus LM Ql (Urine sed)Order ed By: Dr. De La Rosa on 06-22-2022 Mucus Ql (Urine sed) 0 SEEN /hpf [facility] Nitrite Test strip Ql (U)Ord ered By: Dr. De La Rosa on 06-22-2022 Nitrite Ql (U) Negative Negative [facility] No Panel InformationOrdered By: Siddharth De La Rosa on 06-22-2022 Estimated Creatinine Clearance Calc 366.58 ml/min [facility] Estimated GFR (MDRD) Amer 383 mL/min >60 [facility] Comment on above: GFR Calc Estimated GFR (MDRD) Non-Af Amer 317 mL/min >60 [facility] Comment on above: Non- GFR Calc No Panel InformationOrdered By: Dr. De La Rosa on 06-22-2022 27.3 pg 27.0-32.0 [facility] 14.3 % 11.6-14.6 [facility] 45.2 fl 35.1-43.9 [facility] 0.200 % 0.0-0.9 [facility] 0 % 0-5 [facility] 13.0 SECONDS 11.7-14.9 [facility] 31.6 Seconds 24.1-36.2 [facility] 317 mL/min >60 [facility] 383 mL/min >60 [facility] 366.58 ml/min [facility] 48.6 RATIO 10-20 [facility] 4.3 g/dL 2.2-4.2 [facility] 135 U/L 45-117 [facility] 19 U/L 16-61 [facility] 25.0 mmol/L 21.0-32.0 [facility] Platelets bldOrdered By: Dr. De La Rosa on 06-22-2022 Platelets (Bld) [#/Vol] 202 10*3/uL 150-450 [facility] Protein Test strip Ql (U)Ord ered By: Dr. De La Rosa on 06-22-2022 Protein Ql (U) 30 mg/dl Negative [facility] Serum or plasma albumin jacinta urement (mass/volume)Ordered By: Dr. De La Rosa on 06-22-2022 Albumin [Mass/Vol] 2.9 g/dL 3.2-5.0 [facility] Serum or plasma albumin/glob ulin mass ratioOrdered By: Dr. De La Rosa on 06-22-2022 Albumin/Globulin [Mass ratio] 0.7 {ratio} 0.9-2.4 [facility] Serum or plasma calcium jacinta urement (mass/volume)Ordered By: Dr. De La Rosa on 06-22-2022 Calcium [Mass/Vol] 7.6 mg/dL 8.5-10.1 [facility] Serum or plasma creatinine m easurement (mass/volume)Ordered By: Dr. De La Rosa on 06-22-2022 Creatinine [Mass/Vol] 0.33 mg/dL 0.70-1.30 [facility] Comment on above: The validity of the calculated GFR & GFRAA in patients over 70 years has not been determined. Clinical correlation is essential. Serum or plasma urea nitroge n measurement (mass/volume)Ordered By: Dr. De La Rosa on 06-22-2022 Urea nitrogen [Mass/Vol] 16 mg/dL 7-18 [facility] Squamous epithelial cells de tection in urine sediment by light microscopyOrdered By: Dr. De La Rosa on 06-22-2022 Epithelial cells.squamous LM Ql (Urine sed) 0-5 SEEN /hpf 0-5 [facility] Thin prep Papanicolaou smear with manual screeningOrdered By: Dr. De La Rosa on 05-01-2023 Thin prep Papanicolaou smear with manual screening 16 U/L 15-37 [facility] Thin prep Papanicolaou smear with manual screening 7 5-15 [facility] Urine blood detectionOrdered By: Dr. De La Rosa on 06-22-2022 RBC Ql (U) Negative Negative [facility] RBC Ql (U) 0 SEEN /hpf 0-5 [facility] Urine clarityOrdered By: Dr. De La Rosa on 06-22-2022 Clarity (U) Sl Cldy Clear [facility] Urine color determinationOrd ered By: Dr. De La Rosa on 06-22-2022 Color (U) Yellow Yellow [facility] Urine glucose detectionOrder ed By: Dr. De La Rosa on 06-22-2022 Glucose Ql (U) Normal mg/dl Normal [facility] Urine leukocyte esterase det ection by dipstickOrdered By: Dr. De La Rosa on 06-22-2022 Leukocyte esterase Test strip Ql (U) 25 /ul Negative [facility] Urine pHOrdered By: Dr. Lianne vieira on 06-22-2022 pH (U) 8.0 [pH] 5.0 - 8.0 [facility] Urine sediment bacteria coun t by microscopy (number/high power field)Ordered By: Dr. De La Rosa on 06-22-2022 Bacteria LM.HPF (Urine sed) [#/Area] 0 /[HPF] None Seen [facility] Urine specific gravity measu rementOrdered By: Dr. De La Rosa on 06-22-2022 Specific gravity (U) [Rel density] 1.010 1.002-1.030 [facility] Urobilinogen Auto test strip Ql (U)Ordered By: Dr. De La Rosa on 06-22-2022 Urobilinogen Ql (U) Normal mg/dl Normal [facility] CNNURSEon 06-15-2022 CNNURSE Nurse Visit (JAYNA) -------- KRISS MICHAEL ([id number]) 1980 Date Time Provider Department 06/15/22 2:00 PM STOMA THERAPY [facility] During your visit today, we recorded the following information about you: Cassie Cui RN 06/15/2022 3:50 PM Addendum The [address] [address] Patient: Kriss Michael Patient Address: [address] [place] [address] Dr Araujo [facility] [address] Preferred Gender: male Date of : 1980 Type of Stoma: End Descending Colostomy Diagnosis: Constipation K59.0 OSTOMY SUPPLY ORDER FORM Coloplast SenSura [place] MAXI Drainable Pouch with Soft Outlet Transparent Cut-to-fit 4 #[id number] 30 day use - 1 Box Coloplast Bed Drainage Bag #[id number] 30 day use-2 bags Logging Superintendent #[id number] 30 day use 1 Superintendent Construction Tonia Hollihesive #[id number] 30 day use - 2 Boxes Procare Abdominal binder (62-74) #[id number] 30 day use - 2 Binders OR Procare Abdominal binder (45-62) #[id number] 30 day use - 2 Binders Refills: 11 Attending Physician: Dr. Leavitt For immediate authorization, please contact the physician?s office. [facility] Nurse: VALERIANO Peters, CWOCN Addendum by: VALERIANO Virgen, CWOCN SIGNATURE: Cassie Cui RN PATIENT NAME: Kriss Michael DATE: June 15, 2022 TIME: 3:34 PM CONTACT #: [phone] Cassie Cui RN 06/15/2022 6:05 PM Signed [...] Requested samples from Coloplast for Coloplast SenSura [place] MAXI Drainable pouch with soft outlet #37669. Order form provided. Also discussed use of [...] effluent Current pouching system: Jazzmine Cohesive StomaWrap, [place] New Image flat flange with tape collar (cutting surface up to 3 1/2), high volume output pouch Current wearing time: 1 day Recommendations: Skin Care: Apply ConvaTec Stomahesive powder to irritated or denuded skin, brush away excess. 3M No sting skin barrier film. Pouching System: After reducing prolapse, applied [place] Hollihesive long wedges to peristomal skin, Coloplast [...] Inject intravenou (more content not included)... Normal [facility] Absolute lymphocyte countOrd ered By: Dr. Munoz on 06-12-2022 Lymphocytes Auto (Unsp spec) [#/Vol] 2.18 10*3/uL 0.83-4.51 [facility] Basophil percentageOrdered B y: Dr. Munoz on 06-12-2022 Basophil percentage 90 mg/dL 74-106 [facility] Basophil percentage 135 mmol/L 136-145 [facility] Basophil percentage 3.7 mmol/L 3.5-5.1 [facility] Basophil percentage 103 mmol/L 98-107 [facility] Basophils (Bld) [#/Vol] 6.1 10*3/uL 4.4-11.0 [facility] Basophils (Bld) [#/Vol] 3.1 10*3/uL 2.0-7.7 [facility] Basophils/100 WBC (Bld) 0.5 % 0-1 [facility] Basophils/100 WBC (Bld) 50.9 % 47-70 [facility] Basophils/100 WBC (Bld) 3.3 % 0-5 [facility] Chloride [Moles/Vol] 103 mmol/L 98-107 [facility] Eosinophils/100 WBC (Bld) 3.3 % 0-5 [facility] Glucose [Mass/Vol] 90 mg/dL 74-106 [facility] Neutrophils (Bld) [#/Vol] 3.1 10*3/uL 2.0-7.7 [facility] Neutrophils/100 WBC (Bld) 50.9 % 47-70 [facility] Potassium [Moles/Vol] 3.7 mmol/L 3.5-5.1 [facility] Sodium [Moles/Vol] 135 mmol/L 136-145 [facility] WBC (Bld) [#/Vol] 6.1 10*3/uL 4.4-11.0 [facility] Blood erythrocytes count (nu mber/volume)Ordered By: Dr. Munoz on 06-12-2022 RBC (Bld) [#/Vol] 4.08 10*6/uL 4.6-6.2 [facility] Blood hemoglobin measurement (mass/volume)Ordered By: Dr. Munoz on 06-12-2022 Hemoglobin (Bld) [Mass/Vol] 11.2 g/dL 13.0-16.5 [facility] Blood lymphocytes/100 leukoc ytesOrdered By: Dr. Munoz on 06-12-2022 Lymphocytes/100 WBC (Bld) 35.9 % 19-41 [facility] Blood monocytes/100 leukocyt esOrdered By: Dr. Munoz on 06-12-2022 Monocytes/100 WBC (Bld) 8.1 % 0-10 [facility] Blood platelet mean volumeOr dered By: Dr. Munoz on 06-12-2022 Platelet mean volume (Bld) [Entitic vol] 9.8 fL 6.2-12.0 [facility] Determination of erythrocyte mean corpuscular volume (MCV)Ordered By: Dr. Munoz on 06-12-2022 MCV (RBC) [Entitic vol] 85.0 fL 80-94 [facility] Hematocrit Auto (Bld) [Volum e fraction]Ordered By: Dr. Munoz on 06-12-2022 Hematocrit (Bld) [Volume fraction] 34.7 % 40-54 [facility] Influenza virus A and B and SARS-CoV-2 (COVID-19) Ag panel - Upper respiratory specimOrdered By: Naveen Munoz on 06-12-2022 SARS-CoV-2 (COVID-19) RNA YAYO+probe Ql (Resp) [facility] Influenza virus A and B and SARS-CoV-2 (COVID-19) Ag panel - Upper respiratory specimOrdered By: Dr. Munoz on 06-12-2022 SARS-CoV-2 (COVID-19) RNA YAYO+probe Ql (Resp) [facility] - Chemistry and C hemistry - challengeOrdered By: Dr. Munoz on 06-12-2022 CO2 [Moles/Vol] 28.0 mmol/L 21.0-32.0 [facility] Urea nitrogen/Creatinine [Mass ratio] 38.9 mg/mg 10-20 [facility] - Hematology and Cell countsOrdered By: Dr. Munoz on 06-12-2022 Erythrocyte distribution width (RBC) [Entitic vol] 45.3 fL 35.1-43.9 [facility] Erythrocyte distribution width (RBC) [Ratio] 14.5 % 11.6-14.6 [facility] Immature granulocytes/100 WBC (Bld) 1.300 % 0.0-0.9 [facility] Comment on above: IG% - Immature Granu locytes (promyelocytes, myelocytes and metamyelocytes) > 1% indicates that a LEFT SHIFT is Present. MCH (RBC) [Entitic mass] 27.5 pg 27.0-32.0 [facility] Nucleated RBC/100 WBC (Bld) [Ratio] 0 % 0-5 [facility] MCHC Auto (RBC) [Mass/Vol]Or dered By: Dr. Munoz on 06-12-2022 MCHC (RBC) [Mass/Vol] 32.3 g/dL 32-36 [facility] No Panel InformationOrdered By: Dr. Munoz on 06-12-2022 Estimated Creatinine Clearance Calc 381.94 ml/min [facility] Estimated GFR (MDRD) Amer 456 mL/min >60 [facility] Comment on above: GFR Calc Estimated GFR (MDRD) Non-Af Amer 377 mL/min >60 [facility] Comment on above: Non- GFR Calc Troponin I High Sensitivity < 3 pg/mL 3.0-78.0 [facility] Comment on above: Please Note: New Suha t Units and Gender Specific Reference Ranges. For more information see Policy Stat Procedure [place] High Sensitivity Troponin (TNIH) and attachments. 27.5 pg 27.0-32.0 [facility] 14.5 % 11.6-14.6 [facility] 45.3 fl 35.1-43.9 [facility] 1.300 % 0.0-0.9 [facility] 0 % 0-5 [facility] 377 mL/min >60 [facility] 456 mL/min >60 [facility] 381.94 ml/min [facility] 38.9 RATIO 10-20 [facility] < 3 pg/mL 3.0-78.0 [facility] 28.0 mmol/L 21.0-32.0 [facility] Platelets bldOrdered By: Dr. Munoz on 06-12-2022 Platelets (Bld) [#/Vol] 199 10*3/uL 150-450 [facility] Serum or plasma calcium jacinta urement (mass/volume)Ordered By: Dr. Munoz on 06-12-2022 Calcium [Mass/Vol] 8.8 mg/dL 8.5-10.1 [facility] Serum or plasma creatinine m easurement (mass/volume)Ordered By: Dr. Munoz on 06-12-2022 Creatinine [Mass/Vol] 0.28 mg/dL 0.70-1.30 [facility] Comment on above: The validity of the calculated GFR & GFRAA in patients over 70 years has not been determined. Clinical correlation is essential. Serum or plasma urea nitroge n measurement (mass/volume)Ordered By: Dr. Munoz on 06-12-2022 Urea nitrogen [Mass/Vol] 11 mg/dL 7-18 [facility] Thin prep Papanicolaou smear with manual screeningOrdered By: Dr. Munoz on 06-12-2022 Thin prep Papanicolaou smear with manual screening 4 5-15 [facility] Absolute lymphocyte countOrd ered By: Dr. Waite on 06-01-2022 Lymphocytes Auto (Unsp spec) [#/Vol] 2.20 10*3/uL 0.83-4.51 [facility] Basophil percentageOrdered B y: Dr. Waite on 06-01-2022 Basophil percentage 100 mg/dL 74-106 [facility] Basophil percentage 140 mmol/L 136-145 [facility] Basophil percentage 3.6 mmol/L 3.5-5.1 [facility] Basophil percentage 105 mmol/L 98-107 [facility] Basophils (Bld) [#/Vol] 5.2 10*3/uL 4.4-11.0 [facility] Basophils (Bld) [#/Vol] 2.2 10*3/uL 2.0-7.7 [facility] Basophils/100 WBC (Bld) 0.4 % 0-1 [facility] Basophils/100 WBC (Bld) 42.6 % 47-70 [facility] Basophils/100 WBC (Bld) 4.6 % 0-5 [facility] Chloride [Moles/Vol] 105 mmol/L 98-107 [facility] Eosinophils/100 WBC (Bld) 4.6 % 0-5 [facility] Glucose [Mass/Vol] 100 mg/dL 74-106 [facility] Comment on above: Fasting Glucose resu lt from 100 to 125 mg/dL suggests IMPAIRED HOMEOSTASIS per A.D.A. criteria. Neutrophils (Bld) [#/Vol] 2.2 10*3/uL 2.0-7.7 [facility] Neutrophils/100 WBC (Bld) 42.6 % 47-70 [facility] Potassium [Moles/Vol] 3.6 mmol/L 3.5-5.1 [facility] Sodium [Moles/Vol] 140 mmol/L 136-145 [facility] WBC (Bld) [#/Vol] 5.2 10*3/uL 4.4-11.0 [facility] Blood erythrocytes count (nu mber/volume)Ordered By: Dr. Waite on 06-01-2022 RBC (Bld) [#/Vol] 3.90 10*6/uL 4.6-6.2 [facility] Blood hemoglobin measurement (mass/volume)Ordered By: Dr. Waite on 06-01-2022 Hemoglobin (Bld) [Mass/Vol] 11.0 g/dL 13.0-16.5 [facility] Blood lymphocytes/100 leukoc ytesOrdered By: Dr. Waite on 06-01-2022 Lymphocytes/100 WBC (Bld) 42.5 % 19-41 [facility] Blood monocytes/100 leukocyt esOrdered By: Dr. Waite on 06-01-2022 Monocytes/100 WBC (Bld) 9.7 % 0-10 [facility] Blood platelet mean volumeOr dered By: Dr. Waite on 06-01-2022 Platelet mean volume (Bld) [Entitic vol] 10.1 fL 6.2-12.0 [facility] Determination of erythrocyte mean corpuscular volume (MCV)Ordered By: Dr. Waite on 06-01-2022 MCV (RBC) [Entitic vol] 86.4 fL 80-94 [facility] Hematocrit Auto (Bld) [Volum e fraction]Ordered By: Dr. Waite on 06-01-2022 Hematocrit (Bld) [Volume fraction] 33.7 % 40-54 [facility] - Chemistry and C hemistry - challengeOrdered By: Dr. Waite on 06-01-2022 CO2 [Moles/Vol] 32.0 mmol/L 21.0-32.0 [facility] Urea nitrogen/Creatinine [Mass ratio] 46.0 mg/mg 10-20 [facility] - Hematology and Cell countsOrdered By: Dr. Waite on 06-01-2022 Erythrocyte distribution width (RBC) [Entitic vol] 46.1 fL 35.1-43.9 [facility] Erythrocyte distribution width (RBC) [Ratio] 14.7 % 11.6-14.6 [facility] Immature granulocytes/100 WBC (Bld) 0.200 % 0.0-0.9 [facility] Comment on above: IG% - Immature Granu locytes (promyelocytes, myelocytes and metamyelocytes) > 1% indicates that a LEFT SHIFT is Present. MCH (RBC) [Entitic mass] 28.2 pg 27.0-32.0 [facility] Nucleated RBC/100 WBC (Bld) [Ratio] 0 % 0-5 [facility] Auto (RBC) [Mass/Vol]Or dered By: Dr. Waite on 06-01-2022 MCHC (RBC) [Mass/Vol] 32.6 g/dL 32-36 [facility] No Panel InformationOrdered By: Dr. Waite on 06-01-2022 Estimated GFR (MDRD) Amer 501 mL/min >60 [facility] Comment on above: GFR Calc Estimated GFR (MDRD) Non-Af Amer 414 mL/min >60 [facility] Comment on above: Non- GFR Calc 28.2 pg 27.0-32.0 [facility] 14.7 % 11.6-14.6 [facility] 46.1 fl 35.1-43.9 [facility] 0.200 % 0.0-0.9 [facility] 0 % 0-5 [facility] 414 mL/min >60 [facility] 501 mL/min >60 [facility] 46.0 RATIO 10-20 [facility] 32.0 mmol/L 21.0-32.0 [facility] Platelets bldOrdered By: Dr. Waite on 06-01-2022 Platelets (Bld) [#/Vol] 183 10*3/uL 150-450 [facility] Serum or plasma calcium jacinta urement (mass/volume)Ordered By: Dr. Waite on 06-01-2022 Calcium [Mass/Vol] 8.8 mg/dL 8.5-10.1 [facility] Serum or plasma creatinine m easurement (mass/volume)Ordered By: Dr. Waite on 06-01-2022 Creatinine [Mass/Vol] 0.26 mg/dL 0.70-1.30 [facility] Comment on above: The validity of the calculated GFR & GFRAA in patients over 70 years has not been determined. Clinical correlation is essential. Serum or plasma urea nitroge n measurement (mass/volume)Ordered By: Dr. Waite on 06-01-2022 Urea nitrogen [Mass/Vol] 12 mg/dL 7-18 [facility] Thin prep Papanicolaou smear with manual screeningOrdered By: Dr. Waite on 06-01-2022 Thin prep Papanicolaou smear with manual screening 3 5-15 [facility] Absolute lymphocyte countOrd ered By: Dr. Conn on 05-04-2022 Lymphocytes Auto (Unsp spec) [#/Vol] 1.95 10*3/uL 0.83-4.51 [facility] Basophil percentageOrdered B y: Dr. Conn on 05-04-2022 Basophil percentage 21.8 ug/mL 10.0-40.0 [facility] Basophil percentage 102 mg/dL 74-106 [facility] Basophil percentage 141 mmol/L 136-145 [facility] Basophil percentage 3.5 mmol/L 3.5-5.1 [facility] Basophil percentage 106 mmol/L 98-107 [facility] Basophils (Bld) [#/Vol] 5.5 10*3/uL 4.4-11.0 [facility] Basophils (Bld) [#/Vol] 2.8 10*3/uL 2.0-7.7 [facility] Basophils/100 WBC (Bld) 0.2 % 0-1 [facility] Basophils/100 WBC (Bld) 50.6 % 47-70 [facility] Basophils/100 WBC (Bld) 3.7 % 0-5 [facility] Chloride [Moles/Vol] 106 mmol/L 98-107 [facility] Eosinophils/100 WBC (Bld) 3.7 % 0-5 [facility] Glucose [Mass/Vol] 102 mg/dL 74-106 [facility] Comment on above: Fasting Glucose resu lt from 100 to 125 mg/dL suggests IMPAIRED HOMEOSTASIS per A.D.A. criteria. Neutrophils (Bld) [#/Vol] 2.8 10*3/uL 2.0-7.7 [facility] Neutrophils/100 WBC (Bld) 50.6 % 47-70 [facility] Potassium [Moles/Vol] 3.5 mmol/L 3.5-5.1 [facility] Sodium [Moles/Vol] 141 mmol/L 136-145 [facility] WBC (Bld) [#/Vol] 5.5 10*3/uL 4.4-11.0 [facility] Blood erythrocytes count (nu mber/volume)Ordered By: Dr. Conn on 05-04-2022 RBC (Bld) [#/Vol] 4.00 10*6/uL 4.6-6.2 [facility] Blood hemoglobin measurement (mass/volume)Ordered By: Dr. Conn on 05-04-2022 Hemoglobin (Bld) [Mass/Vol] 11.3 g/dL 13.0-16.5 [facility] Blood lymphocytes/100 leukoc ytesOrdered By: Dr. Conn on 05-04-2022 Lymphocytes/100 WBC (Bld) 35.6 % 19-41 [facility] Blood monocytes/100 leukocyt esOrdered By: Dr. Conn on 05-04-2022 Monocytes/100 WBC (Bld) 9.7 % 0-10 [facility] Blood platelet mean volumeOr dered By: Dr. Conn on 05-04-2022 Platelet mean volume (Bld) [Entitic vol] 10.8 fL 6.2-12.0 [facility] Determination of erythrocyte mean corpuscular volume (MCV)Ordered By: Dr. Conn on 05-04-2022 MCV (RBC) [Entitic vol] 87.3 fL 80-94 [facility] Hematocrit Auto (Bld) [Volum e fraction]Ordered By: Dr. Conn on 05-04-2022 Hematocrit (Bld) [Volume fraction] 34.9 % 40-54 [facility] - Chemistry and C hemistry - challengeOrdered By: Dr. Conn on 05-04-2022 CO2 [Moles/Vol] 29.0 mmol/L 21.0-32.0 [facility] Urea nitrogen/Creatinine [Mass ratio] 62.5 mg/mg 10-20 [facility] - Hematology and Cell countsOrdered By: Dr. Conn on 05-04-2022 Erythrocyte distribution width (RBC) [Entitic vol] 46.2 fL 35.1-43.9 [facility] Erythrocyte distribution width (RBC) [Ratio] 14.4 % 11.6-14.6 [facility] Immature granulocytes/100 WBC (Bld) 0.200 % 0.0-0.9 [facility] Comment on above: IG% - Immature Granu locytes (promyelocytes, myelocytes and metamyelocytes) > 1% indicates that a LEFT SHIFT is Present. MCH (RBC) [Entitic mass] 28.3 pg 27.0-32.0 [facility] Nucleated RBC/100 WBC (Bld) [Ratio] 0 % 0-5 [facility] MCHC Auto (RBC) [Mass/Vol]Or dered By: Dr. Conn on 05-04-2022 MCHC (RBC) [Mass/Vol] 32.4 g/dL 32-36 [facility] No Panel InformationOrdered By: Dr. Conn on 05-04-2022 Estimated GFR (MDRD) Amer 478 mL/min >60 [facility] Comment on above: GFR Calc Estimated GFR (MDRD) Non-Af Amer 395 mL/min >60 [facility] Comment on above: Non- GFR Calc 28.3 pg 27.0-32.0 [facility] 14.4 % 11.6-14.6 [facility] 46.2 fl 35.1-43.9 [facility] 0.200 % 0.0-0.9 [facility] 0 % 0-5 [facility] 395 mL/min >60 [facility] 478 mL/min >60 [facility] 62.5 RATIO 10-20 [facility] 29.0 mmol/L 21.0-32.0 [facility] Platelets bldOrdered By: Dr. Conn on 05-04-2022 Platelets (Bld) [#/Vol] 180 10*3/uL 150-450 [facility] Serum or plasma calcium jacinta urement (mass/volume)Ordered By: Dr. Conn on 05-04-2022 Calcium [Mass/Vol] 8.6 mg/dL 8.5-10.1 [facility] Serum or plasma creatinine m easurement (mass/volume)Ordered By: Dr. Conn on 05-04-2022 Creatinine [Mass/Vol] 0.27 mg/dL 0.70-1.30 [facility] Comment on above: The validity of the calculated GFR & GFRAA in patients over 70 years has not been determined. Clinical correlation is essential. Serum or plasma transthyreti n measurement (mass/volume)Ordered By: Dr. Conn on 05-04-2022 Prealbumin [Mass/Vol] 24.1 mg/dL 20.0-40.0 [facility] Serum or plasma urea nitroge n measurement (mass/volume)Ordered By: Dr. Conn on 05-04-2022 Urea nitrogen [Mass/Vol] 17 mg/dL 7-18 [facility] Thin prep Papanicolaou smear with manual screeningOrdered By: Dr. Conn on 05-04-2022 Thin prep Papanicolaou smear with manual screening 6 5-15 [facility] CNPNon 04-14-2022 CNPN Telephone ([facility]) -------- KRISS MICHAEL ([id number]) 1980 Date Time Provider Department 04/14/22 Yola LEAVITT During your visit today, we recorded the following information about you: Ebony Boateng 04/14/2022 12:39 PM Signed The patient had a Colostomy done by Dr leavitt. The patient 's mother (POA) States he is having issues with prolapse of colon, would like to see what could be done about this,. [phone] Ashly (mom) Geetha Walter RN 04/14/2022 1:40 [...] Fully Assessed Reason for Visit: Patient Update [3474] Patient Question [6057] Prescriptions as of 04/14/2022 - baclofen (LIORESAL) [...] infection [A4 (more content not included)... [facility] CNPN Telephone ([employer]) -------- KRISS MICHAEL ([id number]) 1980 M Date Time Provider Department 04/14/22 [...] p*04/05/2018 Aspiration (more content not included)... [facility] Absolute lymphocyte countOrd ered By: Dr. Alexandre on 04-01-2022 Lymphocytes Auto (Unsp spec) [#/Vol] 2.64 10*3/uL 0.83-4.51 [facility] Basophil percentageOrdered B y: Dr. Alexandre on 04-01-2022 Basophil percentage 122 mg/dL 74-106 [facility] Basophil percentage 145 mmol/L 136-145 [facility] Basophil percentage 3.5 mmol/L 3.5-5.1 [facility] Basophil percentage 110 mmol/L 98-107 [facility] Basophils (Bld) [#/Vol] 6.6 10*3/uL 4.4-11.0 [facility] Basophils (Bld) [#/Vol] 3.1 10*3/uL 2.0-7.7 [facility] Basophils/100 WBC (Bld) 0.2 % 0-1 [facility] Basophils/100 WBC (Bld) 46.7 % 47-70 [facility] Basophils/100 WBC (Bld) 2.1 % 0-5 [facility] Chloride [Moles/Vol] 110 mmol/L 98-107 [facility] Eosinophils/100 WBC (Bld) 2.1 % 0-5 [facility] Glucose [Mass/Vol] 122 mg/dL 74-106 [facility] Comment on above: Fasting Glucose resu lt from 100 to 125 mg/dL suggests IMPAIRED HOMEOSTASIS per A.D.A. criteria. Neutrophils (Bld) [#/Vol] 3.1 10*3/uL 2.0-7.7 [facility] Neutrophils/100 WBC (Bld) 46.7 % 47-70 [facility] Potassium [Moles/Vol] 3.5 mmol/L 3.5-5.1 [facility] Sodium [Moles/Vol] 145 mmol/L 136-145 [facility] WBC (Bld) [#/Vol] 6.6 10*3/uL 4.4-11.0 [facility] Blood erythrocytes count (nu mber/volume)Ordered By: Dr. Alexandre on 04-01-2022 RBC (Bld) [#/Vol] 3.33 10*6/uL 4.6-6.2 [facility] Blood hemoglobin measurement (mass/volume)Ordered By: Dr. Alexandre on 04-01-2022 Hemoglobin (Bld) [Mass/Vol] 9.2 g/dL 13.0-16.5 [facility] Blood lymphocytes/100 leukoc ytesOrdered By: Dr. Alexandre on 04-01-2022 Lymphocytes/100 WBC (Bld) 39.9 % 19-41 [facility] Blood monocytes/100 leukocyt esOrdered By: Dr. Alexandre on 04-01-2022 Monocytes/100 WBC (Bld) 10.0 % 0-10 [facility] Blood platelet mean volumeOr dered By: Dr. Alexandre on 04-01-2022 Platelet mean volume (Bld) [Entitic vol] 9.6 fL 6.2-12.0 [facility] Determination of erythrocyte mean corpuscular volume (MCV)Ordered By: Dr. Alexandre on 04-01-2022 MCV (RBC) [Entitic vol] 88.6 fL 80-94 [facility] Hematocrit Auto (Bld) [Volum e fraction]Ordered By: Dr. Alexandre on 04-01-2022 Hematocrit (Bld) [Volume fraction] 29.5 % 40-54 [facility] - Chemistry and C hemistry - challengeOrdered By: Dr. Alexandre on 04-01-2022 CO2 [Moles/Vol] 29.0 mmol/L 21.0-32.0 [facility] Urea nitrogen/Creatinine [Mass ratio] 43.7 mg/mg 10-20 [facility] - Hematology and Cell countsOrdered By: Dr. Alexandre on 04-01-2022 Erythrocyte distribution width (RBC) [Entitic vol] 48.4 fL 35.1-43.9 [facility] Erythrocyte distribution width (RBC) [Ratio] 15.0 % 11.6-14.6 [facility] Immature granulocytes/100 WBC (Bld) 1.100 % 0.0-0.9 [facility] Comment on above: IG% - Immature Granu locytes (promyelocytes, myelocytes and metamyelocytes) > 1% indicates that a LEFT SHIFT is Present. MCH (RBC) [Entitic mass] 27.6 pg 27.0-32.0 [facility] Nucleated RBC/100 WBC (Bld) [Ratio] 0 % 0-5 [facility] MCHC Auto (RBC) [Mass/Vol]Or dered By: Dr. Alexandre on 04-01-2022 MCHC (RBC) [Mass/Vol] 31.2 g/dL 32-36 [facility] No Panel InformationOrdered By: Dr. Alexandre on 04-01-2022 Estimated Creatinine Clearance Calc 460.75 ml/min [facility] Estimated GFR (MDRD) Amer 583 mL/min >60 [facility] Comment on above: GFR Calc Estimated GFR (MDRD) Non-Af Amer 482 mL/min >60 [facility] Comment on above: Non- GFR Calc 27.6 pg 27.0-32.0 [facility] 15.0 % 11.6-14.6 [facility] 48.4 fl 35.1-43.9 [facility] 1.100 % 0.0-0.9 [facility] 0 % 0-5 [facility] 482 mL/min >60 [facility] 583 mL/min >60 [facility] 460.75 ml/min [facility] 43.7 RATIO 10-20 [facility] 29.0 mmol/L 21.0-32.0 [facility] Platelets bldOrdered By: Dr. Alexandre on 04-01-2022 Platelets (Bld) [#/Vol] 237 10*3/uL 150-450 [facility] Serum or plasma calcium jacinta urement (mass/volume)Ordered By: Dr. Alexandre on 04-01-2022 Calcium [Mass/Vol] 8.2 mg/dL 8.5-10.1 [facility] Serum or plasma creatinine m easurement (mass/volume)Ordered By: Dr. Alexandre on 04-01-2022 Creatinine [Mass/Vol] 0.23 mg/dL 0.70-1.30 [facility] Comment on above: The validity of the calculated GFR & GFRAA in patients over 70 years has not been determined. Clinical correlation is essential. Serum or plasma urea nitroge n measurement (mass/volume)Ordered By: Dr. Alexandre on 04-01-2022 Urea nitrogen [Mass/Vol] 10 mg/dL 7-18 [facility] Thin prep Papanicolaou smear with manual screeningOrdered By: Dr. Alexandre on 04-01-2022 Thin prep Papanicolaou smear with manual screening 6 5-15 [facility] Basophil percentageOrdered B y: Dr. Dillard on 03-30-2022 Basophil percentage 7.2 g/dL 6.4-8.2 [facility] Basophil percentage 0.20 mg/dL 0.20-1.00 [facility] Bilirubin [Mass/Vol] 0.20 mg/dL 0.20-1.00 [facility] Comment on above: For patients on eltr ombopag therapy, use of Dimension [place] TBIL is not recommended. Protein [Mass/Vol] 7.2 g/dL 6.4-8.2 [facility] Laboratory - Chemistry and C hemistry - challengeOrdered By: Dr. Dillard on 03-30-2022 ALP [Catalytic activity/Vol] 79 U/L 45-117 [facility] ALT [Catalytic activity/Vol] 19 U/L 16-61 [facility] Globulin (S) [Mass/Vol] 4.5 g/dL 2.2-4.2 [facility] Laboratory - Microbiology an d Antimicrobial susceptibilityOrdered By: Dr. De La Torre on 03-30-2022 Bacteria identified Cx Nom (Bld) No growth in 5 days. [facility] No Panel InformationOrdered By: Dr. Dillard on 03-30-2022 4.5 g/dL 2.2-4.2 [facility] 79 U/L 45-117 [facility] 19 U/L 16-61 [facility] No Panel InformationOrdered By: Dr. De La Torre on 03-30-2022 No growth in 5 days. [facility] Serum or plasma albumin jacinta urement (mass/volume)Ordered By: Dr. Dillard on 03-30-2022 Albumin [Mass/Vol] 2.7 g/dL 3.2-5.0 [facility] Serum or plasma albumin/glob ulin mass ratioOrdered By: Dr. Dillard on 03-30-2022 Albumin/Globulin [Mass ratio] 0.6 {ratio} 0.9-2.4 [facility] Thin prep Papanicolaou smear with manual screeningOrdered By: Dr. Dillard on 03-30-2022 Thin prep Papanicolaou smear with manual screening 9 U/L 15-37 [facility] Bacteria identified Respirat ory culture Nom (Unsp spec)Ordered By: Dr. De La Torre on 03-27-2022 Respiratory Culture Proteus mirabilis [facility] Respiratory Culture Streptococcus agalactiae (B) [facility] Microbial respiratory culture Proteus mirabilis [facility] Microbial respiratory culture Streptococcus agalactiae (B) [facility] Basophil percentageOrdered B y: Dr. Dillard on 03-25-2022 Basophil percentage 0.7 mmol/L 0.4-2.0 [facility] Lactate [Moles/Vol] 0.7 mmol/L 0.4-2.0 [facility] Gram stain for investigation of transfusion reactionOrdered By: Dr. De La Torre on 03-25-2022 Microscopic observation Gram stain Nom (Unsp spec) [facility] - Microbiology an d Antimicrobial susceptibilityOrdered By: Dr. Echavarria on 03-25-2022 Respiratory pathogens DNA and RNA 12b panel YAYO+probe (Unsp spec) [facility] Absolute lymphocyte countOrd ered By: Dr. De La Torre on 03-24-2022 Lymphocytes Auto (Unsp spec) [#/Vol] 0.99 10*3/uL 0.83-4.51 [facility] Basophil percentageOrdered B y: Dr. De La Torre on 03-24-2022 Basophil percentage 2.9 mmol/L 0.4-2.0 [facility] Basophil percentage 0-5 SEEN /hpf 0-5 [facility] Basophil percentage 145 mg/dL 74-106 [facility] Basophil percentage 133 mmol/L 136-145 [facility] Basophil percentage 3.8 mmol/L 3.5-5.1 [facility] Basophil percentage 99 mmol/L 98-107 [facility] Basophils (Bld) [#/Vol] 7.5 10*3/uL 4.4-11.0 [facility] Basophils (Bld) [#/Vol] 6.0 10*3/uL 2.0-7.7 [facility] Basophils/100 WBC (Bld) 0.3 % 0-1 [facility] Basophils/100 WBC (Bld) 79.9 % 47-70 [facility] Basophils/100 WBC (Bld) 1.3 % 0-5 [facility] Chloride [Moles/Vol] 99 mmol/L 98-107 [facility] Eosinophils/100 WBC (Bld) 1.3 % 0-5 [facility] Glucose [Mass/Vol] 145 mg/dL 74-106 [facility] Comment on above: Fasting Glucose resu lt greater than or equal to 126 mg/dL suggests DIABETES MELLITUS per A.D.A. criteria. Lactate [Moles/Vol] 2.7 mmol/L 0.4-2.0 [facility] Comment on above: Critical Result(s) C alled at: 18:44:06 03/24/2022 by: MARIBEL [facility]ARS [place]. Results read back by same. Neutrophils (Bld) [#/Vol] 6.0 10*3/uL 2.0-7.7 [facility] Neutrophils/100 WBC (Bld) 79.9 % 47-70 [facility] Potassium [Moles/Vol] 3.8 mmol/L 3.5-5.1 [facility] Sodium [Moles/Vol] 133 mmol/L 136-145 [facility] WBC (Bld) [#/Vol] 7.5 10*3/uL 4.4-11.0 [facility] Basophil percentageOrdered B y: Dr. Echavarria on 03-24-2022 Basophil percentage 8.3 g/dL 6.4-8.2 [facility] Basophil percentage 0.30 mg/dL 0.20-1.00 [facility] Bilirubin Test strip Ql (U)O rdered By: Dr. De La Torre on 03-24-2022 Bilirubin Ql (U) Negative Negative [facility] Blood erythrocytes count (nu mber/volume)Ordered By: Dr. De La Torre on 03-24-2022 RBC (Bld) [#/Vol] 4.25 10*6/uL 4.6-6.2 [facility] Blood hemoglobin measurement (mass/volume)Ordered By: Dr. De La Torre on 03-24-2022 Hemoglobin (Bld) [Mass/Vol] 11.5 g/dL 13.0-16.5 [facility] Blood lymphocytes/100 leukoc ytesOrdered By: Dr. De La Torre on 03-24-2022 Lymphocytes/100 WBC (Bld) 13.1 % 19-41 [facility] Blood monocytes/100 leukocyt esOrdered By: Dr. De La Torre on 03-24-2022 Monocytes/100 WBC (Bld) 5.3 % 0-10 [facility] Blood platelet mean volumeOr dered By: Dr. De La Torre on 03-24-2022 Platelet mean volume (Bld) [Entitic vol] 10.4 fL 6.2-12.0 [facility] Determination of erythrocyte mean corpuscular volume (MCV)Ordered By: Dr. De La Torre on 03-24-2022 MCV (RBC) [Entitic vol] 85.4 fL 80-94 [facility] Direct bilirubinOrdered By: Dr. Echavarria on 03-24-2022 Bilirubin.direct [Mass/Vol] 0.07 mg/dL 0.00-0.30 [facility] Hematocrit Auto (Bld) [Volum e fraction]Ordered By: Dr. De La Torre on 03-24-2022 Hematocrit (Bld) [Volume fraction] 36.3 % 40-54 [facility] Influenza virus A and B and SARS-CoV-2 (COVID-19) Ag panel - Upper respiratory specimOrdered By: Dr. De La Torre on 03-24-2022 SARS-CoV-2 (COVID-19) RNA YAYO+probe Ql (Resp) [facility] Ketones Test strip Ql (U)Ord ered By: Dr. De La Torre on 03-24-2022 Ketones Ql (U) 15 mg/dl Negative [facility] - Chemistry and C hemistry - challengeOrdered By: Dr. De La Torre on 03-24-2022 CO2 [Moles/Vol] 23.0 mmol/L 21.0-32.0 [facility] Urea nitrogen/Creatinine [Mass ratio] 22.2 mg/mg 10-20 [facility] - Hematology and Cell countsOrdered By: Dr. De La Torre on 03-24-2022 Erythrocyte distribution width (RBC) [Entitic vol] 43.3 fL 35.1-43.9 [facility] Erythrocyte distribution width (RBC) [Ratio] 14.0 % 11.6-14.6 [facility] Immature granulocytes/100 WBC (Bld) 0.100 % 0.0-0.9 [facility] Comment on above: IG% - Immature Granu locytes (promyelocytes, myelocytes and metamyelocytes) > 1% indicates that a LEFT SHIFT is Present. MCH (RBC) [Entitic mass] 27.1 pg 27.0-32.0 [facility] Nucleated RBC/100 WBC (Bld) [Ratio] 0 % 0-5 [facility] MCHC Auto (RBC) [Mass/Vol]Or dered By: Dr. De La Torre on 03-24-2022 MCHC (RBC) [Mass/Vol] 31.7 g/dL 32-36 [facility] Mucus LM Ql (Urine sed)Order ed By: Dr. De La Torre on 03-24-2022 Mucus Ql (Urine sed) 0 SEEN /hpf [facility] Nitrite Test strip Ql (U)Ord ered By: Dr. De La Torre on 03-24-2022 Nitrite Ql (U) Negative Negative [facility] No Panel InformationOrdered By: Dr. De La Torre on 03-24-2022 Estimated Creatinine Clearance Calc 154.32 ml/min [facility] Estimated GFR (MDRD) Amer 267 mL/min >60 [facility] Comment on above: GFR Calc Estimated GFR (MDRD) Non-Af Amer 220 mL/min >60 [facility] Comment on above: Non- GFR Calc 27.1 pg 27.0-32.0 [facility] 14.0 % 11.6-14.6 [facility] 43.3 fl 35.1-43.9 [facility] 0.100 % 0.0-0.9 [facility] 0 % 0-5 [facility] 220 mL/min >60 [facility] 267 mL/min >60 [facility] 154.32 ml/min [facility] 22.2 RATIO 10-20 [facility] 23.0 mmol/L 21.0-32.0 [facility] No Panel InformationOrdered By: Dr. Echavarria on 03-24-2022 4.9 g/dL 2.2-4.2 [facility] 137 U/L 45-117 [facility] 20 U/L 16-61 [facility] Platelets bldOrdered By: Dr. De La Torre on 03-24-2022 Platelets (Bld) [#/Vol] 141 10*3/uL 150-450 [facility] Protein Test strip Ql (U)Ord ered By: Dr. De La Torre on 03-24-2022 Protein Ql (U) 30 mg/dl Negative [facility] Serum or plasma albumin jacinta urement (mass/volume)Ordered By: Dr. Echavarria on 03-24-2022 Albumin [Mass/Vol] 3.4 g/dL 3.2-5.0 [facility] Serum or plasma calcium jacinta urement (mass/volume)Ordered By: Dr. De La Torre on 03-24-2022 Calcium [Mass/Vol] 8.6 mg/dL 8.5-10.1 [facility] Serum or plasma creatinine m easurement (mass/volume)Ordered By: Dr. De La Torre on 03-24-2022 Creatinine [Mass/Vol] 0.45 mg/dL 0.70-1.30 [facility] Comment on above: The validity of the calculated GFR & GFRAA in patients over 70 years has not been determined. Clinical correlation is essential. Serum or plasma urea nitroge n measurement (mass/volume)Ordered By: Dr. De La Torre on 03-24-2022 Urea nitrogen [Mass/Vol] 10 mg/dL 7-18 [facility] Squamous epithelial cells de tection in urine sediment by light microscopyOrdered By: Dr. De La Torre on 03-24-2022 Epithelial cells.squamous LM Ql (Urine sed) 0 SEEN /hpf 0-5 [facility] Thin prep Papanicolaou smear with manual screeningOrdered By: Dr. De La Torre on 03-24-2022 Thin prep Papanicolaou smear with manual screening 11 5-15 [facility] Thin prep Papanicolaou smear with manual screeningOrdered By: Dr. Echavarria on 03-24-2022 Thin prep Papanicolaou smear with manual screening 22 U/L 15-37 [facility] Urine blood detectionOrdered By: Dr. De La Torre on 03-24-2022 RBC Ql (U) 10 /ul Negative [facility] RBC Ql (U) 0-5 SEEN /hpf 0-5 [facility] Urine clarityOrdered By: Dr. De La Torre on 03-24-2022 Clarity (U) Clear Clear [facility] Urine color determinationOrd ered By: Dr. De La Torre on 03-24-2022 Color (U) Yellow Yellow [facility] Urine glucose detectionOrder ed By: Dr. De La Torre on 03-24-2022 Glucose Ql (U) Normal mg/dl Normal [facility] Urine leukocyte esterase det ection by dipstickOrdered By: Dr. De La Torre on 03-24-2022 Leukocyte esterase Test strip Ql (U) 25 /ul Negative [facility] Urine pHOrdered By: Dr. Walter hidalgo on 03-24-2022 pH (U) 7.0 [pH] 5.0 - 8.0 [facility] Urine sediment bacteria coun t by microscopy (number/high power field)Ordered By: Dr. De La Torre on 03-24-2022 Bacteria LM.HPF (Urine sed) [#/Area] 0 /[HPF] None Seen [facility] Urine specific gravity measu rementOrdered By: Dr. De La Torre on 03-24-2022 Specific gravity (U) [Rel density] 1.005 1.002-1.030 [facility] Urobilinogen Auto test strip Ql (U)Ordered By: Dr. De La Torre on 03-24-2022 Urobilinogen Ql (U) Normal mg/dl Normal [facility] Absolute lymphocyte countOrd ered By: Dr. Waite on 03-23-2022 Lymphocytes Auto (Unsp spec) [#/Vol] 1.82 10*3/uL 0.83-4.51 [facility] Basophil percentageOrdered B y: Dr. Waite on 03-23-2022 Basophil percentage 104 mg/dL 74-106 [facility] Basophil percentage 139 mmol/L 136-145 [facility] Basophil percentage 3.8 mmol/L 3.5-5.1 [facility] Basophil percentage 104 mmol/L 98-107 [facility] Basophils (Bld) [#/Vol] 6.6 10*3/uL 4.4-11.0 [facility] Basophils (Bld) [#/Vol] 3.9 10*3/uL 2.0-7.7 [facility] Basophils/100 WBC (Bld) 0.2 % 0-1 [facility] Basophils/100 WBC (Bld) 59.9 % 47-70 [facility] Basophils/100 WBC (Bld) 3.8 % 0-5 [facility] Chloride [Moles/Vol] 104 mmol/L 98-107 [facility] Eosinophils/100 WBC (Bld) 3.8 % 0-5 [facility] Glucose [Mass/Vol] 104 mg/dL 74-106 [facility] Comment on above: Fasting Glucose resu lt from 100 to 125 mg/dL suggests IMPAIRED HOMEOSTASIS per A.D.A. criteria. Neutrophils (Bld) [#/Vol] 3.9 10*3/uL 2.0-7.7 [facility] Neutrophils/100 WBC (Bld) 59.9 % 47-70 [facility] Potassium [Moles/Vol] 3.8 mmol/L 3.5-5.1 [facility] Sodium [Moles/Vol] 139 mmol/L 136-145 [facility] WBC (Bld) [#/Vol] 6.6 10*3/uL 4.4-11.0 [facility] Blood erythrocytes count (nu mber/volume)Ordered By: Dr. Waite on 03-23-2022 RBC (Bld) [#/Vol] 4.00 10*6/uL 4.6-6.2 [facility] Blood hemoglobin measurement (mass/volume)Ordered By: Dr. Waite on 03-23-2022 Hemoglobin (Bld) [Mass/Vol] 10.8 g/dL 13.0-16.5 [facility] Blood lymphocytes/100 leukoc ytesOrdered By: Dr. Waite on 03-23-2022 Lymphocytes/100 WBC (Bld) 27.7 % 19-41 [facility] Blood monocytes/100 leukocyt esOrdered By: Dr. Waite on 03-23-2022 Monocytes/100 WBC (Bld) 7.9 % 0-10 [facility] Blood platelet mean volumeOr dered By: Dr. Waite on 03-23-2022 Platelet mean volume (Bld) [Entitic vol] 10.2 fL 6.2-12.0 [facility] Determination of erythrocyte mean corpuscular volume (MCV)Ordered By: Dr. Waite on 03-23-2022 MCV (RBC) [Entitic vol] 86.0 fL 80-94 [facility] Hematocrit Auto (Bld) [Volum e fraction]Ordered By: Dr. Waite on 03-23-2022 Hematocrit (Bld) [Volume fraction] 34.4 % 40-54 [facility] - Chemistry and C hemistry - challengeOrdered By: Dr. Waite on 03-23-2022 CO2 [Moles/Vol] 31.0 mmol/L 21.0-32.0 [facility] Urea nitrogen/Creatinine [Mass ratio] 60.0 mg/mg 10-20 [facility] - Hematology and Cell countsOrdered By: Dr. Waite on 03-23-2022 Erythrocyte distribution width (RBC) [Entitic vol] 43.8 fL 35.1-43.9 [facility] Erythrocyte distribution width (RBC) [Ratio] 13.9 % 11.6-14.6 [facility] Immature granulocytes/100 WBC (Bld) 0.500 % 0.0-0.9 [facility] Comment on above: IG% - Immature Granu locytes (promyelocytes, myelocytes and metamyelocytes) > 1% indicates that a LEFT SHIFT is Present. MCH (RBC) [Entitic mass] 27.0 pg 27.0-32.0 [facility] Nucleated RBC/100 WBC (Bld) [Ratio] 0 % 0-5 [facility] MCHC Auto (RBC) [Mass/Vol]Or dered By: Dr. Waite on 03-23-2022 MCHC (RBC) [Mass/Vol] 31.4 g/dL 32-36 [facility] No Panel InformationOrdered By: Dr. Waite on 03-23-2022 Estimated GFR (MDRD) Amer 527 mL/min >60 [facility] Comment on above: GFR Calc Estimated GFR (MDRD) Non-Af Amer 435 mL/min >60 [facility] Comment on above: Non- GFR Calc 27.0 pg 27.0-32.0 [facility] 13.9 % 11.6-14.6 [facility] 43.8 fl 35.1-43.9 [facility] 0.500 % 0.0-0.9 [facility] 0 % 0-5 [facility] 435 mL/min >60 [facility] 527 mL/min >60 [facility] 60.0 RATIO 10-20 [facility] 31.0 mmol/L 21.0-32.0 [facility] Platelets bldOrdered By: Dr. Waite on 03-23-2022 Platelets (Bld) [#/Vol] 169 10*3/uL 150-450 [facility] Serum or plasma calcium jacinta urement (mass/volume)Ordered By: Dr. Waite on 03-23-2022 Calcium [Mass/Vol] 8.3 mg/dL 8.5-10.1 [facility] Serum or plasma creatinine m easurement (mass/volume)Ordered By: Dr. Waite on 03-23-2022 Creatinine [Mass/Vol] 0.25 mg/dL 0.70-1.30 [facility] Comment on above: The validity of the calculated GFR & GFRAA in patients over 70 years has not been determined. Clinical correlation is essential. Serum or plasma urea nitroge n measurement (mass/volume)Ordered By: Dr. Waite on 03-23-2022 Urea nitrogen [Mass/Vol] 15 mg/dL 7-18 [facility] Thin prep Papanicolaou smear with manual screeningOrdered By: Dr. Waite on 03-23-2022 Thin prep Papanicolaou smear with manual screening 4 5-15 [facility] Absolute lymphocyte countOrd ered By: Dr. De La Torre on 02-24-2022 Lymphocytes Auto (Unsp spec) [#/Vol] 2.18 10*3/uL 0.83-4.51 [facility] Basophil percentageOrdered B y: Dr. De La Torre on 02-24-2022 Basophil percentage 110 mg/dL 74-106 [facility] Basophil percentage 8.8 g/dL 6.4-8.2 [facility] Basophil percentage 0.20 mg/dL 0.20-1.00 [facility] Basophil percentage 135 mmol/L 136-145 [facility] Basophil percentage 4.2 mmol/L 3.5-5.1 [facility] Basophil percentage 102 mmol/L 98-107 [facility] Basophils (Bld) [#/Vol] 7.9 10*3/uL 4.4-11.0 [facility] Basophils (Bld) [#/Vol] 4.6 10*3/uL 2.0-7.7 [facility] Basophils/100 WBC (Bld) 0.3 % 0-1 [facility] Basophils/100 WBC (Bld) 58.7 % 47-70 [facility] Basophils/100 WBC (Bld) 4.4 % 0-5 [facility] Bilirubin [Mass/Vol] 0.20 mg/dL 0.20-1.00 [facility] Comment on above: For patients on eltr ombopag therapy, use of Dimension [place] TBIL is not recommended. Chloride [Moles/Vol] 102 mmol/L 98-107 [facility] Eosinophils/100 WBC (Bld) 4.4 % 0-5 [facility] Glucose [Mass/Vol] 110 mg/dL 74-106 [facility] Comment on above: Fasting Glucose resu lt from 100 to 125 mg/dL suggests IMPAIRED HOMEOSTASIS per A.D.A. criteria. Neutrophils (Bld) [#/Vol] 4.6 10*3/uL 2.0-7.7 [facility] Neutrophils/100 WBC (Bld) 58.7 % 47-70 [facility] Potassium [Moles/Vol] 4.2 mmol/L 3.5-5.1 [facility] Protein [Mass/Vol] 8.8 g/dL 6.4-8.2 [facility] Sodium [Moles/Vol] 135 mmol/L 136-145 [facility] WBC (Bld) [#/Vol] 7.9 10*3/uL 4.4-11.0 [facility] Blood erythrocytes count (nu mber/volume)Ordered By: Dr. De La Torre on 02-24-2022 RBC (Bld) [#/Vol] 4.41 10*6/uL 4.6-6.2 [facility] Blood hemoglobin measurement (mass/volume)Ordered By: Dr. De La Torre on 02-24-2022 Hemoglobin (Bld) [Mass/Vol] 12.1 g/dL 13.0-16.5 [facility] Blood lymphocytes/100 leukoc ytesOrdered By: Dr. De La Torre on 02-24-2022 Lymphocytes/100 WBC (Bld) 27.6 % 19-41 [facility] Blood monocytes/100 leukocyt esOrdered By: Dr. De La Torre on 02-24-2022 Monocytes/100 WBC (Bld) 8.7 % 0-10 [facility] Blood platelet mean volumeOr dered By: Dr. De La Torre on 02-24-2022 Platelet mean volume (Bld) [Entitic vol] 9.7 fL 6.2-12.0 [facility] Determination of erythrocyte mean corpuscular volume (MCV)Ordered By: Dr. De La Torre on 02-24-2022 MCV (RBC) [Entitic vol] 85.0 fL 80-94 [facility] [facility] H[facility] Auto (Bld) [Volum e fraction]Ordered By: Dr. De La Torre on 02-24-2022 Hematocrit (Bld) [Volume fraction] 37.5 % 40-54 [facility] - Chemistry and C hemistry - challengeOrdered By: Dr. De La Torre on 02-24-2022 ALP [Catalytic activity/Vol] 162 U/L 45-117 [facility] ALT [Catalytic activity/Vol] 23 U/L 16-61 [facility] CO2 [Moles/Vol] 26.0 mmol/L 21.0-32.0 [facility] Globulin (S) [Mass/Vol] 5.4 g/dL 2.2-4.2 [facility] Urea nitrogen/Creatinine [Mass ratio] 34.3 mg/mg 10-20 [facility] - Hematology and Cell countsOrdered By: Dr. De La Torre on 02-24-2022 Erythrocyte distribution width (RBC) [Entitic vol] 41.9 fL 35.1-43.9 [facility] Erythrocyte distribution width (RBC) [Ratio] 13.4 % 11.6-14.6 [facility] Immature granulocytes/100 WBC (Bld) 0.300 % 0.0-0.9 [facility] Comment on above: IG% - Immature Granu locytes (promyelocytes, myelocytes and metamyelocytes) > 1% indicates that a LEFT SHIFT is Present. MCH (RBC) [Entitic mass] 27.4 pg 27.0-32.0 [facility] Nucleated RBC/100 WBC (Bld) [Ratio] 0 % 0-5 [facility] MCHC Auto (RBC) [Mass/Vol]Or dered By: Dr. De La Torre on 02-24-2022 MCHC (RBC) [Mass/Vol] 32.3 g/dL 32-36 [facility] No Panel InformationOrdered By: Dr. De La Torre on 02-24-2022 Estimated Creatinine Clearance Calc 169.38 ml/min [facility] Estimated GFR (MDRD) Amer 299 mL/min >60 [facility] Comment on above: GFR Calc Estimated GFR (MDRD) Non-Af Amer 247 mL/min >60 [facility] Comment on above: Non- GFR Calc 27.4 pg 27.0-32.0 [facility] 13.4 % 11.6-14.6 [facility] 41.9 fl 35.1-43.9 [facility] 0.300 % 0.0-0.9 [facility] 0 % 0-5 [facility] 247 mL/min >60 [facility] 299 mL/min >60 [facility] 169.38 ml/min [facility] 34.3 RATIO 10-20 [facility] 5.4 g/dL 2.2-4.2 [facility] 162 U/L 45-117 [facility] 23 U/L 16-61 [facility] 26.0 mmol/L 21.0-32.0 [facility] Platelets bldOrdered By: Dr. De La Torre on 02-24-2022 Platelets (Bld) [#/Vol] 210 10*3/uL 150-450 [facility] Serum or plasma albumin jacinta urement (mass/volume)Ordered By: Dr. De La Torre on 02-24-2022 Albumin [Mass/Vol] 3.4 g/dL 3.2-5.0 [facility] Serum or plasma albumin/glob ulin mass ratioOrdered By: Dr. De La Torre on 02-24-2022 Albumin/Globulin [Mass ratio] 0.6 {ratio} 0.9-2.4 [facility] Serum or plasma calcium jacinta urement (mass/volume)Ordered By: Dr. De La Torre on 02-24-2022 Calcium [Mass/Vol] 9.0 mg/dL 8.5-10.1 [facility] Serum or plasma creatinine m easurement (mass/volume)Ordered By: Dr. De La Torre on 02-24-2022 Creatinine [Mass/Vol] 0.41 mg/dL 0.70-1.30 [facility] Comment on above: The validity of the calculated GFR & GFRAA in patients over 70 years has not been determined. Clinical correlation is essential. Serum or plasma urea nitroge n measurement (mass/volume)Ordered By: Dr. De La Torre on 02-24-2022 Urea nitrogen [Mass/Vol] 14 mg/dL 7-18 [facility] Thin prep Papanicolaou smear with manual screeningOrdered By: Dr. De La Torre on 02-24-2022 Thin prep Papanicolaou smear with manual screening 11 U/L 15-37 [facility] Thin prep Papanicolaou smear with manual screening 7 5-15 [facility] Absolute lymphocyte countOrd ered By: Dr. Waite on 02-06-2022 Lymphocytes Auto (Unsp spec) [#/Vol] 1.84 10*3/uL 0.83-4.51 [facility] Basophil percentageOrdered B y: Dr. Waite on 02-06-2022 Basophil percentage 113 mg/dL 74-106 [facility] Basophil percentage 138 mmol/L 136-145 [facility] Basophil percentage 3.8 mmol/L 3.5-5.1 [facility] Basophil percentage 103 mmol/L 98-107 [facility] Basophils (Bld) [#/Vol] 7.8 10*3/uL 4.4-11.0 [facility] Basophils (Bld) [#/Vol] 5.1 10*3/uL 2.0-7.7 [facility] Basophils/100 WBC (Bld) 0.1 % 0-1 [facility] Basophils/100 WBC (Bld) 65.4 % 47-70 [facility] Basophils/100 WBC (Bld) 4.0 % 0-5 [facility] Chloride [Moles/Vol] 103 mmol/L 98-107 [facility] Eosinophils/100 WBC (Bld) 4.0 % 0-5 [facility] Glucose [Mass/Vol] 113 mg/dL 74-106 [facility] Comment on above: Fasting Glucose resu lt from 100 to 125 mg/dL suggests IMPAIRED HOMEOSTASIS per A.D.A. criteria. Neutrophils (Bld) [#/Vol] 5.1 10*3/uL 2.0-7.7 [facility] Neutrophils/100 WBC (Bld) 65.4 % 47-70 [facility] Potassium [Moles/Vol] 3.8 mmol/L 3.5-5.1 [facility] Sodium [Moles/Vol] 138 mmol/L 136-145 [facility] WBC (Bld) [#/Vol] 7.8 10*3/uL 4.4-11.0 [facility] Blood erythrocytes count (nu mber/volume)Ordered By: Dr. Waite on 02-06-2022 RBC (Bld) [#/Vol] 4.00 10*6/uL 4.6-6.2 [facility] Blood hemoglobin measurement (mass/volume)Ordered By: Dr. Waite on 02-06-2022 Hemoglobin (Bld) [Mass/Vol] 11.5 g/dL 13.0-16.5 [facility] Blood lymphocytes/100 leukoc ytesOrdered By: Dr. Waite on 02-06-2022 Lymphocytes/100 WBC (Bld) 23.5 % 19-41 [facility] Blood monocytes/100 leukocyt esOrdered By: Dr. Waite on 02-06-2022 Monocytes/100 WBC (Bld) 6.9 % 0-10 [facility] Blood platelet mean volumeOr dered By: Dr. Waite on 02-06-2022 Platelet mean volume (Bld) [Entitic vol] 9.8 fL 6.2-12.0 [facility] Determination of erythrocyte mean corpuscular volume (MCV)Ordered By: Dr. Waite on 02-06-2022 MCV (RBC) [Entitic vol] 86.0 fL 80-94 [facility] Hematocrit Auto (Bld) [Volum e fraction]Ordered By: Dr. Waite on 02-06-2022 Hematocrit (Bld) [Volume fraction] 34.4 % 40-54 [facility] - Chemistry and C hemistry - challengeOrdered By: Dr. Waite on 02-06-2022 CO2 [Moles/Vol] 29.0 mmol/L 21.0-32.0 [facility] Urea nitrogen/Creatinine [Mass ratio] 55.6 mg/mg 10-20 [facility] - Hematology and Cell countsOrdered By: Dr. Waite on 02-06-2022 Erythrocyte distribution width (RBC) [Entitic vol] 43.1 fL 35.1-43.9 [facility] Erythrocyte distribution width (RBC) [Ratio] 13.8 % 11.6-14.6 [facility] Immature granulocytes/100 WBC (Bld) 0.100 % 0.0-0.9 [facility] Comment on above: IG% - Immature Granu locytes (promyelocytes, myelocytes and metamyelocytes) > 1% indicates that a LEFT SHIFT is Present. MCH (RBC) [Entitic mass] 28.8 pg 27.0-32.0 [facility] Nucleated RBC/100 WBC (Bld) [Ratio] 0 % 0-5 [facility] MCHC Auto (RBC) [Mass/Vol]Or dered By: Dr. Waite on 02-06-2022 MCHC (RBC) [Mass/Vol] 33.4 g/dL 32-36 [facility] No Panel InformationOrdered By: Dr. Waite on 02-06-2022 Estimated GFR (MDRD) Amer 482 mL/min >60 [facility] Comment on above: GFR Calc Estimated GFR (MDRD) Non-Af Amer 399 mL/min >60 [facility] Comment on above: Non- GFR Calc 28.8 pg 27.0-32.0 [facility] 13.8 % 11.6-14.6 [facility] 43.1 fl 35.1-43.9 [facility] 0.100 % 0.0-0.9 [facility] 0 % 0-5 [facility] 399 mL/min >60 [facility] 482 mL/min >60 [facility] 55.6 RATIO 10-20 [facility] 29.0 mmol/L 21.0-32.0 [facility] Platelets bldOrdered By: Dr. Waite on 02-06-2022 Platelets (Bld) [#/Vol] 171 10*3/uL 150-450 [facility] Serum or plasma calcium jacinta urement (mass/volume)Ordered By: Dr. Waite on 02-06-2022 Calcium [Mass/Vol] 8.3 mg/dL 8.5-10.1 [facility] Serum or plasma creatinine m easurement (mass/volume)Ordered By: Dr. Waite on 02-06-2022 Creatinine [Mass/Vol] 0.27 mg/dL 0.70-1.30 [facility] Comment on above: The validity of the calculated GFR & GFRAA in patients over 70 years has not been determined. Clinical correlation is essential. Serum or plasma urea nitroge n measurement (mass/volume)Ordered By: Dr. Waite on 02-06-2022 Urea nitrogen [Mass/Vol] 15 mg/dL 7-18 [facility] Thin prep Papanicolaou smear with manual screeningOrdered By: Dr. Waite on 02-06-2022 Thin prep Papanicolaou smear with manual screening 6 5-15 [facility] Absolute lymphocyte countOrd ered By: Dr. Waite on 01-05-2022 Lymphocytes Auto (Unsp spec) [#/Vol] 2.32 10*3/uL 0.83-4.51 [facility] Basophil percentageOrdered B y: Dr. Waite on 01-05-2022 Basophil percentage 87 mg/dL 74-106 [facility] Basophil percentage 7.5 g/dL 6.4-8.2 [facility] Basophil percentage 0.20 mg/dL 0.20-1.00 [facility] Basophil percentage 139 mmol/L 136-145 [facility] Basophil percentage 4.2 mmol/L 3.5-5.1 [facility] Basophil percentage 102 mmol/L 98-107 [facility] Basophils (Bld) [#/Vol] 6.3 10*3/uL 4.4-11.0 [facility] Basophils (Bld) [#/Vol] 2.9 10*3/uL 2.0-7.7 [facility] Basophils/100 WBC (Bld) 0.5 % 0-1 [facility] Basophils/100 WBC (Bld) 45.8 % 47-70 [facility] Basophils/100 WBC (Bld) 8.0 % 0-5 [facility] Bilirubin [Mass/Vol] 0.20 mg/dL 0.20-1.00 [facility] Comment on above: For patients on eltr ombopag therapy, use of Dimension [place] TBIL is not recommended. Chloride [Moles/Vol] 102 mmol/L 98-107 [facility] Eosinophils/100 WBC (Bld) 8.0 % 0-5 [facility] Glucose [Mass/Vol] 87 mg/dL 74-106 [facility] Neutrophils (Bld) [#/Vol] 2.9 10*3/uL 2.0-7.7 [facility] Neutrophils/100 WBC (Bld) 45.8 % 47-70 [facility] Potassium [Moles/Vol] 4.2 mmol/L 3.5-5.1 [facility] Protein [Mass/Vol] 7.5 g/dL 6.4-8.2 [facility] Sodium [Moles/Vol] 139 mmol/L 136-145 [facility] WBC (Bld) [#/Vol] 6.3 10*3/uL 4.4-11.0 [facility] Blood erythrocytes count (nu mber/volume)Ordered By: Dr. Waite on 01-05-2022 RBC (Bld) [#/Vol] 4.05 10*6/uL 4.6-6.2 [facility] Blood hemoglobin measurement (mass/volume)Ordered By: Dr. Waite on 01-05-2022 Hemoglobin (Bld) [Mass/Vol] 11.6 g/dL 13.0-16.5 [facility] Blood lymphocytes/100 leukoc ytesOrdered By: Dr. Waite on 01-05-2022 Lymphocytes/100 WBC (Bld) 37.0 % 19-41 [facility] Blood monocytes/100 leukocyt esOrdered By: Dr. Waite on 01-05-2022 Monocytes/100 WBC (Bld) 8.5 % 0-10 [facility] Blood platelet mean volumeOr dered By: Dr. Waite on 01-05-2022 Platelet mean volume (Bld) [Entitic vol] 10.0 fL 6.2-12.0 [facility] Determination of erythrocyte mean corpuscular volume (MCV)Ordered By: Dr. Waite on 01-05-2022 MCV (RBC) [Entitic vol] 86.9 fL 80-94 [facility] Hematocrit Auto (Bld) [Volum e fraction]Ordered By: Dr. Waite on 01-05-2022 Hematocrit (Bld) [Volume fraction] 35.2 % 40-54 [facility] - Chemistry and C hemistry - challengeOrdered By: Dr. Waite on 01-05-2022 ALP [Catalytic activity/Vol] 126 U/L 45-117 [facility] ALT [Catalytic activity/Vol] 20 U/L 16-61 [facility] CO2 [Moles/Vol] 31.0 mmol/L 21.0-32.0 [facility] Globulin (S) [Mass/Vol] 4.4 g/dL 2.2-4.2 [facility] Urea nitrogen/Creatinine [Mass ratio] 51.7 mg/mg 10-20 [facility] - Hematology and Cell countsOrdered By: Dr. Waite on 01-05-2022 Erythrocyte distribution width (RBC) [Entitic vol] 44.0 fL 35.1-43.9 [facility] Erythrocyte distribution width (RBC) [Ratio] 13.8 % 11.6-14.6 [facility] Immature granulocytes/100 WBC (Bld) 0.200 % 0.0-0.9 [facility] Comment on above: IG% - Immature Granu locytes (promyelocytes, myelocytes and metamyelocytes) > 1% indicates that a LEFT SHIFT is Present. MCH (RBC) [Entitic mass] 28.6 pg 27.0-32.0 [facility] Nucleated RBC/100 WBC (Bld) [Ratio] 0 % 0-5 [facility] MCHC Auto (RBC) [Mass/Vol]Or dered By: Dr. Waite on 01-05-2022 MCHC (RBC) [Mass/Vol] 33.0 g/dL 32-36 [facility] No Panel InformationOrdered By: Dr. Waite on 01-05-2022 Estimated GFR (MDRD) Amer 480 mL/min >60 [facility] Comment on above: GFR Calc Estimated GFR (MDRD) Non-Af Amer 397 mL/min >60 [facility] Comment on above: Non- GFR Calc 28.6 pg 27.0-32.0 [facility] 13.8 % 11.6-14.6 [facility] 44.0 fl 35.1-43.9 [facility] 0.200 % 0.0-0.9 [facility] 0 % 0-5 [facility] 397 mL/min >60 [facility] 480 mL/min >60 [facility] 51.7 RATIO 10-20 [facility] 4.4 g/dL 2.2-4.2 [facility] 126 U/L 45-117 [facility] 20 U/L 16-61 [facility] 31.0 mmol/L 21.0-32.0 [facility] Platelets bldOrdered By: Dr. Waite on 01-05-2022 Platelets (Bld) [#/Vol] 165 10*3/uL 150-450 [facility] Serum or plasma albumin jacinta urement (mass/volume)Ordered By: Dr. Waite on 01-05-2022 Albumin [Mass/Vol] 3.1 g/dL 3.2-5.0 [facility] Serum or plasma albumin/glob ulin mass ratioOrdered By: Dr. Waite on 01-05-2022 Albumin/Globulin [Mass ratio] 0.7 {ratio} 0.9-2.4 [facility] Serum or plasma calcium jacinta urement (mass/volume)Ordered By: Dr. Waite on 01-05-2022 Calcium [Mass/Vol] 8.6 mg/dL 8.5-10.1 [facility] Serum or plasma creatinine m easurement (mass/volume)Ordered By: Dr. Waite on 01-05-2022 Creatinine [Mass/Vol] 0.27 mg/dL 0.70-1.30 [facility] Comment on above: The validity of the calculated GFR & GFRAA in patients over 70 years has not been determined. Clinical correlation is essential. Serum or plasma urea nitroge n measurement (mass/volume)Ordered By: Dr. Waite on 01-05-2022 Urea nitrogen [Mass/Vol] 14 mg/dL 7-18 [facility] Thin prep Papanicolaou smear with manual screeningOrdered By: Dr. Waite on 01-05-2022 Thin prep Papanicolaou smear with manual screening 13 U/L 15-37 [facility] Thin prep Papanicolaou smear with manual screening 6 5-15 [facility] Absolute lymphocyte countOrd ered By: Dr. Waite on 12-08-2021 Lymphocytes Auto (Unsp spec) [#/Vol] 2.18 10*3/uL 0.83-4.51 [facility] Basophil percentageOrdered B y: Dr. Waite on 12-08-2021 Basophil percentage 88 mg/dL 74-106 [facility] Basophil percentage 143 mmol/L 136-145 [facility] Basophil percentage 4.2 mmol/L 3.5-5.1 [facility] Basophil percentage 105 mmol/L 98-107 [facility] Basophils (Bld) [#/Vol] 6.4 10*3/uL 4.4-11.0 [facility] Basophils (Bld) [#/Vol] 3.1 10*3/uL 2.0-7.7 [facility] Basophils/100 WBC (Bld) 0.3 % 0-1 [facility] Basophils/100 WBC (Bld) 48.5 % 47-70 [facility] Basophils/100 WBC (Bld) 8.9 % 0-5 [facility] Chloride [Moles/Vol] 105 mmol/L 98-107 [facility] Eosinophils/100 WBC (Bld) 8.9 % 0-5 [facility] Glucose [Mass/Vol] 88 mg/dL 74-106 [facility] Neutrophils (Bld) [#/Vol] 3.1 10*3/uL 2.0-7.7 [facility] Neutrophils/100 WBC (Bld) 48.5 % 47-70 [facility] Potassium [Moles/Vol] 4.2 mmol/L 3.5-5.1 [facility] Sodium [Moles/Vol] 143 mmol/L 136-145 [facility] WBC (Bld) [#/Vol] 6.4 10*3/uL 4.4-11.0 [facility] Blood erythrocytes count (nu mber/volume)Ordered By: Dr. Waite on 12-08-2021 RBC (Bld) [#/Vol] 3.54 10*6/uL 4.6-6.2 [facility] Blood hemoglobin measurement (mass/volume)Ordered By: Dr. Waite on 12-08-2021 Hemoglobin (Bld) [Mass/Vol] 10.0 g/dL 13.0-16.5 [facility] Blood lymphocytes/100 leukoc ytesOrdered By: Dr. Waite on 12-08-2021 Lymphocytes/100 WBC (Bld) 33.9 % 19-41 [facility] Blood monocytes/100 leukocyt esOrdered By: Dr. Waite on 12-08-2021 Monocytes/100 WBC (Bld) 7.9 % 0-10 [facility] Blood platelet mean volumeOr dered By: Dr. Waite on 12-08-2021 Platelet mean volume (Bld) [Entitic vol] 9.9 fL 6.2-12.0 [facility] Determination of erythrocyte mean corpuscular volume (MCV)Ordered By: Dr. Waite on 12-08-2021 MCV (RBC) [Entitic vol] 89.5 fL 80-94 [facility] Hematocrit Auto (Bld) [Volum e fraction]Ordered By: Dr. Waite on 12-08-2021 Hematocrit (Bld) [Volume fraction] 31.7 % 40-54 [facility] - Chemistry and C hemistry - challengeOrdered By: Dr. Waite on 12-08-2021 CO2 [Moles/Vol] 29.0 mmol/L 21.0-32.0 [facility] Urea nitrogen/Creatinine [Mass ratio] 48.8 mg/mg 10-20 [facility] - Hematology and Cell countsOrdered By: Dr. Waite on 12-08-2021 Erythrocyte distribution width (RBC) [Entitic vol] 44.7 fL 35.1-43.9 [facility] Erythrocyte distribution width (RBC) [Ratio] 13.6 % 11.6-14.6 [facility] Immature granulocytes/100 WBC (Bld) 0.500 % 0.0-0.9 [facility] Comment on above: IG% - Immature Granu locytes (promyelocytes, myelocytes and metamyelocytes) > 1% indicates that a LEFT SHIFT is Present. MCH (RBC) [Entitic mass] 28.2 pg 27.0-32.0 [facility] Nucleated RBC/100 WBC (Bld) [Ratio] 0 % 0-5 [facility] MCHC Auto (RBC) [Mass/Vol]Or dered By: Dr. Waite on 12-08-2021 MCHC (RBC) [Mass/Vol] 31.5 g/dL 32-36 [facility] No Panel InformationOrdered By: Dr. Waite on 12-08-2021 Estimated GFR (MDRD) Amer 450 mL/min >60 [facility] Comment on above: GFR Calc Estimated GFR (MDRD) Non-Af Amer 372 mL/min >60 [facility] Comment on above: Non- GFR Calc 28.2 pg 27.0-32.0 [facility] 13.6 % 11.6-14.6 [facility] 44.7 fl 35.1-43.9 [facility] 0.500 % 0.0-0.9 [facility] 0 % 0-5 [facility] 372 mL/min >60 [facility] 450 mL/min >60 [facility] 48.8 RATIO 10-20 [facility] 29.0 mmol/L 21.0-32.0 [facility] Platelets bldOrdered By: Dr. Waite on 12-08-2021 Platelets (Bld) [#/Vol] 239 10*3/uL 150-450 [facility] Serum or plasma calcium jacinta urement (mass/volume)Ordered By: Dr. Waite on 12-08-2021 Calcium [Mass/Vol] 8.1 mg/dL 8.5-10.1 [facility] Serum or plasma creatinine m easurement (mass/volume)Ordered By: Dr. Waite on 12-08-2021 Creatinine [Mass/Vol] 0.29 mg/dL 0.70-1.30 [facility] Comment on above: The validity of the calculated GFR & GFRAA in patients over 70 years has not been determined. Clinical correlation is essential. Serum or plasma urea nitroge n measurement (mass/volume)Ordered By: Dr. Waite on 12-08-2021 Urea nitrogen [Mass/Vol] 14 mg/dL 7-18 [facility] Thin prep Papanicolaou smear with manual screeningOrdered By: Dr. Waite on 12-08-2021 Thin prep Papanicolaou smear with manual screening 9 5-15 [facility] Absolute lymphocyte countOrd ered By: Dr. Dillard on 12-05-2021 Lymphocytes Auto (Unsp spec) [#/Vol] 1.83 10*3/uL 0.83-4.51 [facility] Basophil percentageOrdered B y: Dr. Dillard on 12-05-2021 Basophil percentage 105 mg/dL 74-106 [facility] Basophil percentage 7.8 g/dL 6.4-8.2 [facility] Basophil percentage 0.20 mg/dL 0.20-1.00 [facility] Basophil percentage 140 mmol/L 136-145 [facility] Basophil percentage 3.8 mmol/L 3.5-5.1 [facility] Basophil percentage 107 mmol/L 98-107 [facility] Basophils (Bld) [#/Vol] 7.0 10*3/uL 4.4-11.0 [facility] Basophils (Bld) [#/Vol] 3.8 10*3/uL 2.0-7.7 [facility] Basophils/100 WBC (Bld) 0.3 % 0-1 [facility] Basophils/100 WBC (Bld) 54.8 % 47-70 [facility] Basophils/100 WBC (Bld) 9.3 % 0-5 [facility] Bilirubin [Mass/Vol] 0.20 mg/dL 0.20-1.00 [facility] Comment on above: For patients on eltr ombopag therapy, use of Dimension [place] TBIL is not recommended. Chloride [Moles/Vol] 107 mmol/L 98-107 [facility] Eosinophils/100 WBC (Bld) 9.3 % 0-5 [facility] Glucose [Mass/Vol] 105 mg/dL 74-106 [facility] Comment on above: Fasting Glucose resu lt from 100 to 125 mg/dL suggests IMPAIRED HOMEOSTASIS per A.D.A. criteria. Neutrophils (Bld) [#/Vol] 3.8 10*3/uL 2.0-7.7 [facility] Neutrophils/100 WBC (Bld) 54.8 % 47-70 [facility] Potassium [Moles/Vol] 3.8 mmol/L 3.5-5.1 [facility] Protein [Mass/Vol] 7.8 g/dL 6.4-8.2 [facility] Sodium [Moles/Vol] 140 mmol/L 136-145 [facility] WBC (Bld) [#/Vol] 7.0 10*3/uL 4.4-11.0 [facility] Blood erythrocytes count (nu mber/volume)Ordered By: Dr. Dillard on 12-05-2021 RBC (Bld) [#/Vol] 3.84 10*6/uL 4.6-6.2 [facility] Blood hemoglobin measurement (mass/volume)Ordered By: Dr. Dillard on 12-05-2021 Hemoglobin (Bld) [Mass/Vol] 10.7 g/dL 13.0-16.5 [facility] Blood lymphocytes/100 leukoc ytesOrdered By: Dr. Dillard on 12-05-2021 Lymphocytes/100 WBC (Bld) 26.3 % 19-41 [facility] Blood monocytes/100 leukocyt esOrdered By: Dr. Dillard on 12-05-2021 Monocytes/100 WBC (Bld) 8.9 % 0-10 [facility] Blood platelet mean volumeOr dered By: Dr. Dillard on 12-05-2021 Platelet mean volume (Bld) [Entitic vol] 10.0 fL 6.2-12.0 [facility] Determination of erythrocyte mean corpuscular volume (MCV)Ordered By: Dr. Dillard on 12-05-2021 MCV (RBC) [Entitic vol] 89.6 fL 80-94 [facility] Hematocrit Auto (Bld) [Volum e fraction]Ordered By: Dr. Dillard on 12-05-2021 Hematocrit (Bld) [Volume fraction] 34.4 % 40-54 [facility] - Chemistry and C hemistry - challengeOrdered By: Dr. Dillard on 12-05-2021 ALP [Catalytic activity/Vol] 134 U/L 45-117 [facility] ALT [Catalytic activity/Vol] 24 U/L 16-61 [facility] CO2 [Moles/Vol] 27.0 mmol/L 21.0-32.0 [facility] Globulin (S) [Mass/Vol] 5.0 g/dL 2.2-4.2 [facility] Urea nitrogen/Creatinine [Mass ratio] 47.1 mg/mg 10-20 [facility] - Hematology and Cell countsOrdered By: Dr. Dillard on 12-05-2021 Erythrocyte distribution width (RBC) [Entitic vol] 45.1 fL 35.1-43.9 [facility] Erythrocyte distribution width (RBC) [Ratio] 13.8 % 11.6-14.6 [facility] Immature granulocytes/100 WBC (Bld) 0.400 % 0.0-0.9 [facility] Comment on above: IG% - Immature Granu locytes (promyelocytes, myelocytes and metamyelocytes) > 1% indicates that a LEFT SHIFT is Present. MCH (RBC) [Entitic mass] 27.9 pg 27.0-32.0 [facility] Nucleated RBC/100 WBC (Bld) [Ratio] 0 % 0-5 [facility] MCHC Auto (RBC) [Mass/Vol]Or dered By: Dr. Dillard on 12-05-2021 MCHC (RBC) [Mass/Vol] 31.1 g/dL 32-36 [facility] Comment on above: Delta: 32.8 on 12/04 No Panel InformationOrdered By: Dr. Dillard on 12-05-2021 Estimated Creatinine Clearance Calc 269.76 ml/min [facility] Estimated GFR (MDRD) Amer 516 mL/min >60 [facility] Comment on above: GFR Calc Estimated GFR (MDRD) Non-Af Amer 426 mL/min >60 [facility] Comment on above: Non- GFR Calc 27.9 pg 27.0-32.0 [facility] 13.8 % 11.6-14.6 [facility] 45.1 fl 35.1-43.9 [facility] 0.400 % 0.0-0.9 [facility] 0 % 0-5 [facility] 426 mL/min >60 [facility] 516 mL/min >60 [facility] 269.76 ml/min [facility] 47.1 RATIO 10-20 [facility] 5.0 g/dL 2.2-4.2 [facility] 134 U/L 45-117 [facility] 24 U/L 16-61 [facility] 27.0 mmol/L 21.0-32.0 [facility] Platelets bldOrdered By: Dr. Dillard on 12-05-2021 Platelets (Bld) [#/Vol] 181 10*3/uL 150-450 [facility] Serum or plasma albumin jacinta urement (mass/volume)Ordered By: Dr. Dillard on 12-05-2021 Albumin [Mass/Vol] 2.8 g/dL 3.2-5.0 [facility] Serum or plasma albumin/glob ulin mass ratioOrdered By: Dr. Dillard on 12-05-2021 Albumin/Globulin [Mass ratio] 0.6 {ratio} 0.9-2.4 [facility] Serum or plasma calcium jacinta urement (mass/volume)Ordered By: Dr. Dillard on 12-05-2021 Calcium [Mass/Vol] 8.7 mg/dL 8.5-10.1 [facility] Serum or plasma creatinine m easurement (mass/volume)Ordered By: Dr. Dillard on 12-05-2021 Creatinine [Mass/Vol] 0.26 mg/dL 0.70-1.30 [facility] Comment on above: The validity of the calculated GFR & GFRAA in patients over 70 years has not been determined. Clinical correlation is essential. Serum or plasma urea nitroge n measurement (mass/volume)Ordered By: Dr. Dillard on 12-05-2021 Urea nitrogen [Mass/Vol] 12 mg/dL 7-18 [facility] Thin prep Papanicolaou smear with manual screeningOrdered By: Dr. Dillard on 12-05-2021 Thin prep Papanicolaou smear with manual screening 13 U/L 15-37 [facility] Thin prep Papanicolaou smear with manual screening 6 5-15 [facility] Bacteria identified Respirat ory culture Nom (Unsp spec)Ordered By: Dominic Méndez on 12-02-2021 Respiratory Culture Pseudomonas aeroginosa [facility] Microbial respiratory culture [facility] Laboratory - Chemistry and C hemistry - challengeOrdered By: Dr. Dillard on 12-02-2021 Magnesium [Mass/Vol] 2.2 mg/dL 1.6-2.6 [facility] No Panel InformationOrdered By: Dr. Dillard on 12-02-2021 2.2 mg/dL 1.6-2.6 [facility] Assessment of wrist artery p atency prior to arterial punctureOrdered By: Dr. Dillard on 12-01-2021 Arterial patency Wrist artery --pre arterial puncture Negative [facility] Base excessOrdered By: Dr. Roxi britton on 12-01-2021 Base excess Calc (BldV) [Moles/Vol] -3 mmol/L -2-2 [facility] Basophil percentageOrdered B y: Dr. Dillard on 12-01-2021 Basophil percentage 1.2 mmol/L 0.4-2.0 [facility] Lactate [Moles/Vol] 1.2 mmol/L 0.4-2.0 [facility] Basophil percentage 21.5 mmol/L 22-26 [facility] Basophils/100 WBC (Bld) 94 % 95-99 [facility] CO2 (BldA) [Partial pressure ]Ordered By: Dr. Dillard on 12-01-2021 CO2 (Bld) [Partial pressure] 31.2 mm[Hg] 35-45 [facility] Gram stain for investigation of transfusion reactionOrdered By: Dominic Méndez on 12-01-2021 Microscopic observation Gram stain Nom (Unsp spec) [facility] Laboratory - Microbiology an d Antimicrobial susceptibilityOrdered By: Dr. Moreira on 12-01-2021 Respiratory pathogens DNA and RNA 12b panel YAYO+probe (Unsp spec) [facility] No Panel InformationOrdered By: Dr. Dillard on 12-01-2021 Blood Gas Liter Flow 3.0 /min [facility] Blood Gas Sample Site R [facility] Blood Gas Specimen Type ART [facility] Blood Gas Total CO2 22 mmol/L [facility] Blood Gas Vent Mode home vent [facility] Oxygen Delivery Device Adult Vent [facility] R [facility] home vent [facility] Adult Vent [facility] 3.0 /min [facility] 22 mmol/L [facility] Oxygen (BldA) [Partial press ure]Ordered By: Dr. Dillard on 12-01-2021 Oxygen (Bld) [Partial pressure] 65 mmHG 75-100 [facility] pH measurementOrdered By: Dr Roxanne Dillard on 12-01-2021 pH (Unsp spec) 7.45 [pH] 7.35-7.45 [facility] Absolute lymphocyte counton 11-30-2021 Lymphocytes Auto (Unsp spec) [#/Vol] 1.55 10*3/uL 0.83-4.51 [facility] Work Phone: Basophil percentageon 2021 Basophils/100 WBC (Bld) 0.3 % 0-1 [facility] Work Phone: [phone] Chloride [Moles/Vol] 104 mmol/L 98-107 [facility]: [phone] Eosinophils/100 WBC (Bld) 5.1 % 0-5 [facility] Work Phone: [phone] Glucose [Mass/Vol] 84 mg/dL 74-106 [facility] Work Phone: [phone] Neutrophils (Bld) [#/Vol] 3.6 10*3/uL 2.0-7.7 [facility] Work Phone: [phone] Neutrophils/100 WBC (Bld) 58.6 % 47-70 [facility] Work Phone: [phone] Potassium [Moles/Vol] 3.7 mmol/L 3.5-5.1 [facility] Work Phone: [phone] Sodium [Moles/Vol] 140 mmol/L 136-145 [facility] Work Phone: [phone] WBC (Bld) [#/Vol] 6.1 10*3/uL 4.4-11.0 [facility] Work Phone: Blood erythrocytes count (nu mber/volume)on 11-30-2021 RBC (Bld) [#/Vol] 4.31 10*6/uL 4.6-6.2 [facility]: Blood hemoglobin measurement (mass/volume)on 11-30-2021 Hemoglobin (Bld) [Mass/Vol] 12.0 g/dL 13.0-16.5 [facility] Work Phone: [phone] Blood lymphocytes/100 leukoc yteson 11-30-2021 Lymphocytes/100 WBC (Bld) 25.6 % 19-41 [facility] Work Phone: [phone] Blood monocytes/100 leukocyt eson 11-30-2021 Monocytes/100 WBC (Bld) 10.2 % 0-10 [facility] Work Phone: Blood platelet mean volumeon 11-30-2021 Platelet mean volume (Bld) [Entitic vol] 9.8 fL 6.2-12.0 [facility] Work Phone: Determination of erythrocyte mean corpuscular volume (MCV)on 11-30-2021 MCV (RBC) [Entitic vol] 86.8 fL 80-94 [facility] Work Phone: Hematocrit Auto (Bld) [Volum e fraction]on 11-30-2021 Hematocrit (Bld) [Volume fraction] 37.4 % 40-54 [facility] Work Phone: Laboratory - Chemistry and C hemistry - challengeon 11-30-2021 CO2 [Moles/Vol] 28.0 mmol/L 21.0-32.0 [facility] Work Phone: Urea nitrogen/Creatinine [Mass ratio] 35.0 mg/mg 10-20 [facility] Work Phone: Laboratory - Hematology and Cell countson 11-30-2021 Erythrocyte distribution width (RBC) [Entitic vol] 41.7 fL 35.1-43.9 [facility] Work Phone: Erythrocyte distribution width (RBC) [Ratio] 13.2 % 11.6-14.6 [facility] Work Phone: Immature granulocytes/100 WBC (Bld) 0.200 % 0.0-0.9 [facility] Work Phone: Comment on above: IG% - Immature Granu locytes (promyelocytes, myelocytes and metamyelocytes) > 1% indicates that a LEFT SHIFT is Present. MCH (RBC) [Entitic mass] 27.8 pg 27.0-32.0 [facility] Work Phone: Nucleated RBC/100 WBC (Bld) [Ratio] 0 % 0-5 [facility] Work Phone: MCHC Auto (RBC) [Mass/Vol]on 11-30-2021 MCHC (RBC) [Mass/Vol] 32.1 g/dL 32-36 [facility] Work Phone: No Panel Informationon 11-30 Estimated Creatinine Clearance Calc 357.48 ml/min [facility] Work Phone: Estimated GFR (MDRD) Amer 406 mL/min >60 [facility] Work Phone: Comment on above: GFR Calc Estimated GFR (MDRD) Non-Af Amer 335 mL/min >60 [facility] Work Phone: Comment on above: Non- GFR Calc Platelets bldon 11-30-2021 Platelets (Bld) [#/Vol] 166 10*3/uL 150-450 [facility] Work Phone: Serum or plasma calcium jacinta urement (mass/volume)on 11-30-2021 Calcium [Mass/Vol] 8.7 mg/dL 8.5-10.1 [facility] Work Phone: Serum or plasma creatinine m easurement (mass/volume)on 11-30-2021 Creatinine [Mass/Vol] 0.31 mg/dL 0.70-1.30 [facility] Work Phone: Comment on above: The validity of the calculated GFR & GFRAA in patients over 70 years has not been determined. Clinical correlation is essential. Serum or plasma urea nitroge n measurement (mass/volume)on 11-30-2021 Urea nitrogen [Mass/Vol] 11 mg/dL 7-18 [facility] Work Phone: Thin prep Papanicolaou smear with manual screeningon 11-30-2021 Thin prep Papanicolaou smear with manual screening 8 5-15 [facility] Work Phone: Absolute lymphocyte counton 11-03-2021 Lymphocytes Auto (Unsp spec) [#/Vol] 2.54 10*3/uL 0.83-4.51 [facility] Work Phone: Basophil percentageon 2021 Basophils/100 WBC (Bld) 0.5 % 0-1 [facility] Work Phone: Chloride [Moles/Vol] 102 mmol/L 98-107 [facility] Work Phone: [phone] Eosinophils/100 WBC (Bld) 4.1 % 0-5 [facility] Work Phone: [phone] Glucose [Mass/Vol] 98 mg/dL 74-106 [facility] Work Phone: Neutrophils (Bld) [#/Vol] 3.2 10*3/uL 2.0-7.7 [facility] Work Phone: [phone] Neutrophils/100 WBC (Bld) 47.6 % 47-70 [facility] Work Phone: [phone] Potassium [Moles/Vol] 3.6 mmol/L 3.5-5.1 [facility] Work Phone: [phone] Sodium [Moles/Vol] 138 mmol/L 136-145 [facility] Work Phone: WBC (Bld) [#/Vol] 6.6 10*3/uL 4.4-11.0 [facility] Work Phone: Blood erythrocytes count (nu mber/volume)on 11-03-2021 RBC (Bld) [#/Vol] 4.09 10*6/uL 4.6-6.2 [facility] Work [facility]: Blood hemoglobin measurement (mass/volume)on 11-03-2021 Hemoglobin (Bld) [Mass/Vol] 11.9 g/dL 13.0-16.5 [facility] Work Phone: [phone] Blood lymphocytes/100 leukoc yteson 11-03-2021 Lymphocytes/100 WBC (Bld) 38.4 % 19-41 [facility] Work Phone: [phone] Blood monocytes/100 leukocyt eson 11-03-2021 Monocytes/100 WBC (Bld) 9.2 % 0-10 [facility] Work Phone: Blood platelet mean volumeon 11-03-2021 Platelet mean volume (Bld) [Entitic vol] 10.1 fL 6.2-12.0 [facility] Work Phone: Determination of erythrocyte mean corpuscular volume (MCV)on 11-03-2021 MCV (RBC) [Entitic vol] 88.3 fL 80-94 [facility] Work Phone: Hematocrit Auto (Bld) [Volum e fraction]on 11-03-2021 Hematocrit (Bld) [Volume fraction] 36.1 % 40-54 [facility] Work Phone: Laboratory - Chemistry and C hemistry - challengeon 11-03-2021 CO2 [Moles/Vol] 27.0 mmol/L 21.0-32.0 [facility] Work Phone: Urea nitrogen/Creatinine [Mass ratio] 47.9 mg/mg 10-20 [facility] Work Phone: Laboratory - Hematology and Cell countson 11-03-2021 Erythrocyte distribution width (RBC) [Entitic vol] 44.0 fL 35.1-43.9 [facility] Work Phone: Erythrocyte distribution width (RBC) [Ratio] 13.5 % 11.6-14.6 [facility] Work Phone: Immature granulocytes/100 WBC (Bld) 0.200 % 0.0-0.9 [facility] Work Phone: Comment on above: IG% - Immature Granu locytes (promyelocytes, myelocytes and metamyelocytes) > 1% indicates that a LEFT SHIFT is Present. MCH (RBC) [Entitic mass] 29.1 pg 27.0-32.0 [facility] Work Phone: Nucleated RBC/100 WBC (Bld) [Ratio] 0 % 0-5 [facility] Work Phone: MCHC Auto (RBC) [Mass/Vol]on 11-03-2021 MCHC (RBC) [Mass/Vol] 33.0 g/dL 32-36 [facility] Work Phone: No Panel Informationon 11-03 Estimated GFR (MDRD) Amer 352 mL/min >60 [facility] Work Phone: Comment on above: GFR Calc Estimated GFR (MDRD) Non-Af Amer 291 mL/min >60 [facility] Work Phone: Comment on above: Non- GFR Calc Platelets bldon 11-03-2021 Platelets (Bld) [#/Vol] 215 10*3/uL 150-450 [facility] Work Phone: Serum or plasma calcium jacinta urement (mass/volume)on 11-03-2021 Calcium [Mass/Vol] 8.9 mg/dL 8.5-10.1 [facility] Work Phone: Serum or plasma creatinine m easurement (mass/volume)on 11-03-2021 Creatinine [Mass/Vol] 0.36 mg/dL 0.70-1.30 [facility] Work Phone: Comment on above: The validity of the calculated GFR & GFRAA in patients over 70 years has not been determined. Clinical correlation is essential. Serum or plasma urea nitroge n measurement (mass/volume)on 11-03-2021 Urea nitrogen [Mass/Vol] 17 mg/dL 7-18 [facility] Work Phone: Thin prep Papanicolaou smear with manual screeningon 11-03-2021 Thin prep Papanicolaou smear with manual screening 9 5-15 [facility] Work Phone: Absolute lymphocyte counton 09-10-2021 Lymphocytes Auto (Unsp spec) [#/Vol] 2.63 10*3/uL 0.83-4.51 [facility] Work Phone: Basophil percentageon 2021 Basophils/100 WBC (Bld) 0.3 % 0-1 [facility] Work Phone: Chloride [Moles/Vol] 102 mmol/L 98-107 [facility] Work Phone: Eosinophils/100 WBC (Bld) 3.9 % 0-5 [facility] Work Phone: Glucose [Mass/Vol] 80 mg/dL 74-106 [facility] Work Phone: Neutrophils (Bld) [#/Vol] 3.5 10*3/uL 2.0-7.7 [facility] Work Phone: Neutrophils/100 WBC (Bld) 48.5 % 47-70 [facility] Work Phone: Potassium [Moles/Vol] 4.1 mmol/L 3.5-5.1 [facility] Work Phone: Sodium [Moles/Vol] 138 mmol/L 136-145 [facility] Work Phone: WBC (Bld) [#/Vol] 7.1 10*3/uL 4.4-11.0 [facility] Work Phone: Blood erythrocytes count (nu mber/volume)on 09-10-2021 RBC (Bld) [#/Vol] 4.00 10*6/uL 4.6-6.2 [facility] Work Phone: Blood hemoglobin measurement (mass/volume)on 09-10-2021 Hemoglobin (Bld) [Mass/Vol] 11.3 g/dL 13.0-16.5 [facility] Work Phone: Blood lymphocytes/100 leukoc yteson 09-10-2021 Lymphocytes/100 WBC (Bld) 36.9 % 19-41 [facility] Work Phone: Blood monocytes/100 leukocyt eson 09-10-2021 Monocytes/100 WBC (Bld) 10.3 % 0-10 [facility] Work Phone: Blood platelet mean volumeon 09-10-2021 Platelet mean volume (Bld) [Entitic vol] 10.7 fL 6.2-12.0 [facility] Work Phone: Determination of erythrocyte mean corpuscular volume (MCV)on 09-10-2021 MCV (RBC) [Entitic vol] 89.5 fL 80-94 [facility] Work Phone: Hematocrit Auto (Bld) [Volum e fraction]on 09-10-2021 Hematocrit (Bld) [Volume fraction] 35.8 % 40-54 [facility] Work Phone: Iron measurement (mass/mass) on 09-10-2021 Iron (Unsp spec) [Mass/Mass] 59 ug/dL 65-175 [facility] Work Phone: Laboratory - Chemistry and C hemistry - challengeon 09-10-2021 CO2 [Moles/Vol] 30.0 mmol/L 21.0-32.0 [facility] Work Phone: Urea nitrogen/Creatinine [Mass ratio] 71.9 mg/mg 10-20 [facility] Work Phone: Laboratory - Hematology and Cell countson 09-10-2021 Erythrocyte distribution width (RBC) [Entitic vol] 47.7 fL 35.1-43.9 [facility] Work Phone: Erythrocyte distribution width (RBC) [Ratio] 14.6 % 11.6-14.6 [facility] Work Phone: Immature granulocytes/100 WBC (Bld) 0.100 % 0.0-0.9 [facility] Work Phone: Comment on above: IG% - Immature Granu locytes (promyelocytes, myelocytes and metamyelocytes) > 1% indicates that a LEFT SHIFT is Present. MCH (RBC) [Entitic mass] 28.3 pg 27.0-32.0 [facility] Work Phone: Nucleated RBC/100 WBC (Bld) [Ratio] 0 % 0-5 [facility] Work Phone: MCHC Auto (RBC) [Mass/Vol]on 09-10-2021 MCHC (RBC) [Mass/Vol] 31.6 g/dL 32-36 [facility] Work Phone: No Panel Informationon 09-10 Estimated GFR (MDRD) Amer 467 mL/min >60 [facility] Work Phone: Comment on above: GFR Calc Estimated GFR (MDRD) Non-Af Amer 386 mL/min >60 [facility] Work Phone: Comment on above: Non- GFR Calc Platelets bldon 09-10-2021 Platelets (Bld) [#/Vol] 177 10*3/uL 150-450 [facility] Work Phone: Serum or plasma calcium jacinta urement (mass/volume)on 09-10-2021 Calcium [Mass/Vol] 9.0 mg/dL 8.5-10.1 [facility] Work Phone: Serum or plasma creatinine m easurement (mass/volume)on 09-10-2021 Creatinine [Mass/Vol] 0.28 mg/dL 0.70-1.30 [facility] Work Phone: Comment on above: The validity of the calculated GFR & GFRAA in patients over 70 years has not been determined. Clinical correlation is essential. Serum or plasma urea nitroge n measurement (mass/volume)on 09-10-2021 Urea nitrogen [Mass/Vol] 20 mg/dL 7-18 [facility] Work Phone: Thin prep Papanicolaou smear with manual screeningon 09-10-2021 Thin prep Papanicolaou smear with manual screening 6 5-15 [facility] Work Phone: Absolute lymphocyte counton 08-12-2021 Lymphocytes Auto (Unsp spec) [#/Vol] 1.84 10*3/uL 0.83-4.51 [facility] Work Phone: Basophil percentageon 2021 Basophils/100 WBC (Bld) 0.2 % 0-1 [facility] Work Phone: Chloride [Moles/Vol] 103 mmol/L 98-107 [facility] Work Phone: Eosinophils/100 WBC (Bld) 4.6 % 0-5 [facility] Work Phone: Glucose [Mass/Vol] 90 mg/dL 74-106 [facility] Work Phone: Neutrophils (Bld) [#/Vol] 2.4 10*3/uL 2.0-7.7 [facility] Work Phone: Neutrophils/100 WBC (Bld) 48.8 % 47-70 [facility] Work Phone: Potassium [Moles/Vol] 3.8 mmol/L 3.5-5.1 [facility] Work Phone: Sodium [Moles/Vol] 139 mmol/L 136-145 [facility] Work Phone: WBC (Bld) [#/Vol] 5.0 10*3/uL 4.4-11.0 [facility] Work Phone: Blood erythrocytes count (nu mber/volume)on 08-12-2021 RBC (Bld) [#/Vol] 4.09 10*6/uL 4.6-6.2 [facility] Work [facility]: Blood hemoglobin measurement (mass/volume)on 08-12-2021 Hemoglobin (Bld) [Mass/Vol] 11.5 g/dL 13.0-16.5 [facility] Work Phone: Blood lymphocytes/100 leukoc yteson 08-12-2021 Lymphocytes/100 WBC (Bld) 36.8 % 19-41 [facility] Work Phone: Blood monocytes/100 leukocyt eson 08-12-2021 Monocytes/100 WBC (Bld) 9.4 % 0-10 [facility] Work Phone: Blood platelet mean volumeon 08-12-2021 Platelet mean volume (Bld) [Entitic vol] 11.0 fL 6.2-12.0 [facility] Work Phone: Determination of erythrocyte mean corpuscular volume (MCV)on 08-12-2021 MCV (RBC) [Entitic vol] 87.0 fL 80-94 [facility] Work Phone: Hematocrit Auto (Bld) [Volum e fraction]on 08-12-2021 Hematocrit (Bld) [Volume fraction] 35.6 % 40-54 [facility] Work Phone: Laboratory - Chemistry and C hemistry - challengeon 08-12-2021 CO2 [Moles/Vol] 29.0 mmol/L 21.0-32.0 [facility] Work Phone: Urea nitrogen/Creatinine [Mass ratio] 50.8 mg/mg 10-20 [facility] Work Phone: Laboratory - Hematology and Cell countson 08-12-2021 Erythrocyte distribution width (RBC) [Entitic vol] 44.2 fL 35.1-43.9 [facility] Work Phone: Erythrocyte distribution width (RBC) [Ratio] 14.1 % 11.6-14.6 [facility] Work Phone: Immature granulocytes/100 WBC (Bld) 0.200 % 0.0-0.9 [facility] Work Phone: Comment on above: IG% - Immature Granu locytes (promyelocytes, myelocytes and metamyelocytes) > 1% indicates that a LEFT SHIFT is Present. MCH (RBC) [Entitic mass] 28.1 pg 27.0-32.0 [facility] Work Phone: Nucleated RBC/100 WBC (Bld) [Ratio] 0 % 0-5 [facility] Work Phone: MCHC Auto (RBC) [Mass/Vol]on 08-12-2021 MCHC (RBC) [Mass/Vol] 32.3 g/dL 32-36 [facility] Work Phone: No Panel Informationon 08-12 Estimated GFR (MDRD) Amer 405 mL/min >60 [facility] Work Phone: Comment on above: GFR Calc Estimated GFR (MDRD) Non-Af Amer 334 mL/min >60 [facility] Work Phone: Comment on above: Non- GFR Calc Platelets bldon 08-12-2021 Platelets (Bld) [#/Vol] 151 10*3/uL 150-450 [facility] Work Phone: Serum or plasma calcium jacinta urement (mass/volume)on 08-12-2021 Calcium [Mass/Vol] 9.0 mg/dL 8.5-10.1 [facility] Work Phone: Serum or plasma creatinine m easurement (mass/volume)on 08-12-2021 Creatinine [Mass/Vol] 0.32 mg/dL 0.70-1.30 [facility] Work Phone: Comment on above: The validity of the calculated GFR & GFRAA in patients over 70 years has not been determined. Clinical correlation is essential. Serum or plasma urea nitroge n measurement (mass/volume)on 08-12-2021 Urea nitrogen [Mass/Vol] 16 mg/dL 7-18 [facility] Work Phone: Thin prep Papanicolaou smear with manual screeningon 08-12-2021 Thin prep Papanicolaou smear with manual screening 7 5-15 [facility] Work Phone: Absolute lymphocyte counton 07-11-2021 Lymphocytes Auto (Unsp spec) [#/Vol] 2.56 10*3/uL 0.83-4.51 [facility] Work Phone: Basophil percentageon 2021 Basophils/100 WBC (Bld) 0.4 % 0-1 [facility] Work Phone: Chloride [Moles/Vol] 105 mmol/L 98-107 [facility] Work Phone: Eosinophils/100 WBC (Bld) 5.9 % 0-5 [facility] Work Phone: Glucose [Mass/Vol] 85 mg/dL 74-106 [facility] Work Phone: Neutrophils (Bld) [#/Vol] 2.1 10*3/uL 2.0-7.7 [facility] Work Phone: Neutrophils/100 WBC (Bld) 38.0 % 47-70 [facility] Work Phone: Potassium [Moles/Vol] 3.7 mmol/L 3.5-5.1 [facility] Work Phone: Sodium [Moles/Vol] 139 mmol/L 136-145 [facility] Work Phone: WBC (Bld) [#/Vol] 5.6 10*3/uL 4.4-11.0 [facility] Work Phone: Blood erythrocytes count (nu mber/volume)on 07-11-2021 RBC (Bld) [#/Vol] 3.83 10*6/uL 4.6-6.2 [facility] Work [facility]: Blood hemoglobin measurement (mass/volume)on 07-11-2021 Hemoglobin (Bld) [Mass/Vol] 10.8 g/dL 13.0-16.5 [facility] Work Phone: Blood lymphocytes/100 leukoc yteson 07-11-2021 Lymphocytes/100 WBC (Bld) 46.0 % 19-41 [facility] Work Phone: Blood monocytes/100 leukocyt eson 07-11-2021 Monocytes/100 WBC (Bld) 9.7 % 0-10 [facility] Work Phone: Blood platelet mean volumeon 07-11-2021 Platelet mean volume (Bld) [Entitic vol] 10.9 fL 6.2-12.0 [facility] Work Phone: Determination of erythrocyte mean corpuscular volume (MCV)on 07-11-2021 MCV (RBC) [Entitic vol] 88.5 fL 80-94 [facility] Work Phone: Hematocrit Auto (Bld) [Volum e fraction]on 07-11-2021 Hematocrit (Bld) [Volume fraction] 33.9 % 40-54 [facility] Work Phone: Laboratory - Chemistry and C hemistry - challengeon 07-11-2021 CO2 [Moles/Vol] 28.0 mmol/L 21.0-32.0 [facility] Work Phone: Urea nitrogen/Creatinine [Mass ratio] 79.4 mg/mg 10-20 [facility] Work Phone: Laboratory - Hematology and Cell countson 07-11-2021 Erythrocyte distribution width (RBC) [Entitic vol] 44.5 fL 35.1-43.9 [facility] Work Phone: Erythrocyte distribution width (RBC) [Ratio] 13.7 % 11.6-14.6 [facility] Work Phone: Immature granulocytes/100 WBC (Bld) 0.000 % 0.0-0.9 [facility] Work Phone: Comment on above: IG% - Immature Granu locytes (promyelocytes, myelocytes and metamyelocytes) > 1% indicates that a LEFT SHIFT is Present. MCH (RBC) [Entitic mass] 28.2 pg 27.0-32.0 [facility] Work Phone: Nucleated RBC/100 WBC (Bld) [Ratio] 0 % 0-5 [facility] Work Phone: MCHC Auto (RBC) [Mass/Vol]on 07-11-2021 MCHC (RBC) [Mass/Vol] 31.9 g/dL 32-36 [facility] Work Phone: No Panel Informationon 07-11 Estimated GFR (MDRD) Amer 470 mL/min >60 [facility] Work Phone: Comment on above: GFR Calc Estimated GFR (MDRD) Non-Af Amer 388 mL/min >60 [facility] Work Phone: Comment on above: Non- GFR Calc Platelets bldon 07-11-2021 Platelets (Bld) [#/Vol] 163 10*3/uL 150-450 [facility] Work Phone: Serum or plasma calcium jacinta urement (mass/volume)on 07-11-2021 Calcium [Mass/Vol] 8.3 mg/dL 8.5-10.1 [facility] Work Phone: Serum or plasma creatinine m easurement (mass/volume)on 07-11-2021 Creatinine [Mass/Vol] 0.28 mg/dL 0.70-1.30 [facility] Work Phone: Comment on above: The validity of the calculated GFR & GFRAA in patients over 70 years has not been determined. Clinical correlation is essential. Serum or plasma urea nitroge n measurement (mass/volume)on 07-11-2021 Urea nitrogen [Mass/Vol] 22 mg/dL 7-18 [facility] Work Phone: Thin prep Papanicolaou smear with manual screeningon 07-11-2021 Thin prep Papanicolaou smear with manual screening 6 5-15 [facility] Work Phone: Absolute lymphocyte counton 06-11-2021 Lymphocytes Auto (Unsp spec) [#/Vol] 2.71 10*3/uL 0.83-4.51 [facility] Work Phone: Basophil percentageon 2021 Basophils/100 WBC (Bld) 0.5 % 0-1 [facility] Work Phone: [phone] Chloride [Moles/Vol] 103 mmol/L 98-107 [facility] Work Phone: Eosinophils/100 WBC (Bld) 5.6 % 0-5 [facility] Work Phone: Glucose [Mass/Vol] 82 mg/dL 74-106 [facility] Work Phone: Neutrophils (Bld) [#/Vol] 2.6 10*3/uL 2.0-7.7 [facility] Work Phone: Neutrophils/100 WBC (Bld) 41.2 % 47-70 [facility] Work Phone: Potassium [Moles/Vol] 4.1 mmol/L 3.5-5.1 [facility] Work [facility]: Sodium [Moles/Vol] 140 mmol/L 136-145 [facility] Work Phone: [phone] WBC (Bld) [#/Vol] 6.3 10*3/uL 4.4-11.0 [facility] Work Phone: Blood erythrocytes count (nu mber/volume)on 06-11-2021 RBC (Bld) [#/Vol] 4.05 10*6/uL 4.6-6.2 [facility] Blood hemoglobin measurement (mass/volume)on 06-11-2021 Hemoglobin (Bld) [Mass/Vol] 11.4 g/dL 13.0-16.5 [facility] Work Phone: Blood lymphocytes/100 leukoc yteson 06-11-2021 Lymphocytes/100 WBC (Bld) 43.0 % 19-41 [facility] Work Phone: Blood monocytes/100 leukocyt eson 06-11-2021 Monocytes/100 WBC (Bld) 9.5 % 0-10 [facility] Work Phone: Blood platelet mean volumeon 06-11-2021 Platelet mean volume (Bld) [Entitic vol] 10.4 fL 6.2-12.0 [facility] Work Phone: Determination of erythrocyte mean corpuscular volume (MCV)on 06-11-2021 MCV (RBC) [Entitic vol] 87.2 fL 80-94 [facility] Work Phone: Hematocrit Auto (Bld) [Volum e fraction]on 06-11-2021 Hematocrit (Bld) [Volume fraction] 35.3 % 40-54 [facility] Work Phone: Laboratory - Chemistry and C hemistry - challengeon 06-11-2021 CO2 [Moles/Vol] 32.0 mmol/L 21.0-32.0 [facility] Work Phone: Urea nitrogen/Creatinine [Mass ratio] 71.4 mg/mg 10-20 [facility] Work Phone: Laboratory - Hematology and Cell countson 06-11-2021 Erythrocyte distribution width (RBC) [Entitic vol] 44.3 fL 35.1-43.9 [facility] Work Phone: Erythrocyte distribution width (RBC) [Ratio] 14.0 % 11.6-14.6 [facility] Work Phone: Immature granulocytes/100 WBC (Bld) 0.200 % 0.0-0.9 [facility] Work Phone: Comment on above: IG% - Immature Granu locytes (promyelocytes, myelocytes and metamyelocytes) > 1% indicates that a LEFT SHIFT is Present. MCH (RBC) [Entitic mass] 28.1 pg 27.0-32.0 [facility] Work Phone: Nucleated RBC/100 WBC (Bld) [Ratio] 0 % 0-5 [facility] Work Phone: MCHC Auto (RBC) [Mass/Vol]on 06-11-2021 MCHC (RBC) [Mass/Vol] 32.3 g/dL 32-36 [facility] Work Phone: No Panel Informationon 06-11 Estimated GFR (MDRD) Amer 492 mL/min >60 [facility] Work Phone: Comment on above: GFR Calc Estimated GFR (MDRD) Non-Af Amer 407 mL/min >60 [facility] Work Phone: Comment on above: Non- GFR Calc Platelets bldon 06-11-2021 Platelets (Bld) [#/Vol] 185 10*3/uL 150-450 [facility] Work Phone: Serum or plasma calcium jacinta urement (mass/volume)on 06-11-2021 Calcium [Mass/Vol] 8.7 mg/dL 8.5-10.1 [facility] Work Phone: Serum or plasma creatinine m easurement (mass/volume)on 06-11-2021 Creatinine [Mass/Vol] 0.27 mg/dL 0.70-1.30 [facility] Work Phone: Comment on above: The validity of the calculated GFR & GFRAA in patients over 70 years has not been determined. Clinical correlation is essential. Serum or plasma urea nitroge n measurement (mass/volume)on 06-11-2021 Urea nitrogen [Mass/Vol] 19 mg/dL 7-18 [facility] Work Phone: Thin prep Papanicolaou smear with manual screeningon 06-11-2021 Thin prep Papanicolaou smear with manual screening 5 5-15 [facility] Work Phone: Absolute lymphocyte counton 05-19-2021 Lymphocytes Auto (Unsp spec) [#/Vol] 2.08 10*3/uL 0.83-4.51 [facility] Work Phone: Basophil percentageon 2021 Basophils/100 WBC (Bld) 0.5 % 0-1 [facility] Work Phone: Chloride [Moles/Vol] 104 mmol/L 98-107 [facility] Work Phone: [phone] Eosinophils/100 WBC (Bld) 9.4 % 0-5 [facility] Work Phone: Glucose [Mass/Vol] 98 mg/dL 74-106 [facility] Work Phone: Neutrophils (Bld) [#/Vol] 3.2 10*3/uL 2.0-7.7 [facility] Work Phone: Neutrophils/100 WBC (Bld) 49.4 % 47-70 [facility] Work Phone: [phone] Potassium [Moles/Vol] 4.2 mmol/L 3.5-5.1 [facility] Work Phone: [phone] Sodium [Moles/Vol] 136 mmol/L 136-145 [facility] Work Phone: [phone] WBC (Bld) [#/Vol] 6.4 10*3/uL 4.4-11.0 [facility] Work Phone: [phone] Blood erythrocytes count (nu mber/volume)on 05-19-2021 RBC (Bld) [#/Vol] 4.21 10*6/uL 4.6-6.2 [facility] Work Phone: Blood hemoglobin measurement (mass/volume)on 05-19-2021 Hemoglobin (Bld) [Mass/Vol] 11.7 g/dL 13.0-16.5 [facility] Work Phone: Blood lymphocytes/100 leukoc yteson 05-19-2021 Lymphocytes/100 WBC (Bld) 32.4 % 19-41 [facility] Work Phone: [phone] Blood monocytes/100 leukocyt eson 05-19-2021 Monocytes/100 WBC (Bld) 8.1 % 0-10 [facility] Work Phone: [phone] Blood platelet adequacy dete ction by light microscopyon 05-19-2021 Platelets LM Ql (Bld) SLT DEC ADEQ [facility] Work Phone: Blood platelet mean volumeon 05-19-2021 Platelet mean volume (Bld) [Entitic vol] 10.3 fL 6.2-12.0 [facility] Work Phone: Determination of erythrocyte mean corpuscular volume (MCV)on 05-19-2021 MCV (RBC) [Entitic vol] 86.7 fL 80-94 [facility] Work Phone: Hematocrit Auto (Bld) [Volum e fraction]on 05-19-2021 Hematocrit (Bld) [Volume fraction] 36.5 % 40-54 [facility] Work Phone: Laboratory - Chemistry and C hemistry - challengeon 05-19-2021 CO2 [Moles/Vol] 26.0 mmol/L 21.0-32.0 [facility] Work Phone: Urea nitrogen/Creatinine [Mass ratio] 32.7 mg/mg 10-20 [facility] Work Phone: Laboratory - Hematology and Cell countson 05-19-2021 Anisocytosis Ql (Bld) RARE [facility] Work Phone: Erythrocyte distribution width (RBC) [Entitic vol] 44.8 fL 35.1-43.9 [facility] Work Phone: Erythrocyte distribution width (RBC) [Ratio] 14.2 % 11.6-14.6 [facility] Work Phone: Immature granulocytes/100 WBC (Bld) 0.200 % 0.0-0.9 [facility] Work Phone: Comment on above: IG% - Immature Granu locytes (promyelocytes, myelocytes and metamyelocytes) > 1% indicates that a LEFT SHIFT is Present. MCH (RBC) [Entitic mass] 27.8 pg 27.0-32.0 [facility] Work Phone: Nucleated RBC/100 WBC (Bld) [Ratio] 0 % 0-5 [facility] Work Phone: MCHC Auto (RBC) [Mass/Vol]on 05-19-2021 MCHC (RBC) [Mass/Vol] 32.1 g/dL 32-36 [facility] Work Phone: No Panel Informationon 05-19 Estimated Creatinine Clearance Calc 189.56 ml/min [facility] Work Phone: Estimated GFR (MDRD) Amer 340 mL/min >60 [facility] Work Phone: Comment on above: GFR Calc Estimated GFR (MDRD) Non-Af Amer 281 mL/min >60 [facility] Work Phone: Comment on above: Non- GFR Calc Platelets bldon 05-19-2021 Platelets (Bld) [#/Vol] 134 10*3/uL 150-450 [facility] Work Phone: RBC morphologyon 05-19-2021 RBC morphology finding Nom (Bld) N CHROM NORMAL NORM C&C [facility] Work Phone: Serum or plasma calcium jacinta urement (mass/volume)on 05-19-2021 Calcium [Mass/Vol] 8.8 mg/dL 8.5-10.1 [facility] Work Phone: Serum or plasma creatinine m easurement (mass/volume)on 05-19-2021 Creatinine [Mass/Vol] 0.37 mg/dL 0.70-1.30 [facility] Work Phone: Comment on above: The validity of the calculated GFR & GFRAA in patients over 70 years has not been determined. Clinical correlation is essential. Serum or plasma urea nitroge n measurement (mass/volume)on 05-19-2021 Urea nitrogen [Mass/Vol] 12 mg/dL 7-18 [facility] Work Phone: Thin prep Papanicolaou smear with manual screeningon 05-19-2021 Thin prep Papanicolaou smear with manual screening 6 5-15 [facility] Work Phone: Absolute lymphocyte counton 05-13-2021 Lymphocytes Auto (Unsp spec) [#/Vol] 3.26 10*3/uL 0.83-4.51 [facility] Work Phone: Basophil percentageon 2021 Basophils/100 WBC (Bld) 0.1 % 0-1 [facility] Work Phone: Chloride [Moles/Vol] 108 mmol/L 98-107 [facility] Work Phone: Eosinophils/100 WBC (Bld) 6.0 % 0-5 [facility] Work Phone: Glucose [Mass/Vol] 107 mg/dL 74-106 [facility] Work Phone: Comment on above: Fasting Glucose resu lt from 100 to 125 mg/dL suggests IMPAIRED HOMEOSTASIS per A.D.A. criteria. Neutrophils (Bld) [#/Vol] 2.9 10*3/uL 2.0-7.7 [facility] Work Phone: Neutrophils/100 WBC (Bld) 39.4 % 47-70 [facility] Work Phone: Potassium [Moles/Vol] 3.8 mmol/L 3.5-5.1 [facility] Work Phone: Sodium [Moles/Vol] 140 mmol/L 136-145 [facility] Work Phone: WBC (Bld) [#/Vol] 7.3 10*3/uL 4.4-11.0 [facility] Work Phone: Blood erythrocytes count (nu mber/volume)on 05-13-2021 RBC (Bld) [#/Vol] 4.06 10*6/uL 4.6-6.2 [facility] Work Phone: Blood hemoglobin measurement (mass/volume)on 05-13-2021 Hemoglobin (Bld) [Mass/Vol] 11.4 g/dL 13.0-16.5 [facility] Work Phone: Blood lymphocytes/100 leukoc yteson 05-13-2021 Lymphocytes/100 WBC (Bld) 44.6 % 19-41 [facility] Work Phone: Blood monocytes/100 leukocyt eson 05-13-2021 Monocytes/100 WBC (Bld) 9.8 % 0-10 [facility] Work Phone: Blood platelet mean volumeon 05-13-2021 Platelet mean volume (Bld) [Entitic vol] 10.6 fL 6.2-12.0 [facility] Work Phone: Determination of erythrocyte mean corpuscular volume (MCV)on 05-13-2021 MCV (RBC) [Entitic vol] 87.4 fL 80-94 [facility] Work Phone: Hematocrit Auto (Bld) [Volum e fraction]on 05-13-2021 Hematocrit (Bld) [Volume fraction] 35.5 % 40-54 [facility] Work Phone: Laboratory - Chemistry and C hemistry - challengeon 05-13-2021 CO2 [Moles/Vol] 29.0 mmol/L 21.0-32.0 [facility] Work Phone: Urea nitrogen/Creatinine [Mass ratio] 46.0 mg/mg 10-20 [facility] Work Phone: Laboratory - Hematology and Cell countson 05-13-2021 Erythrocyte distribution width (RBC) [Entitic vol] 45.3 fL 35.1-43.9 [facility] Work Phone: Erythrocyte distribution width (RBC) [Ratio] 14.2 % 11.6-14.6 [facility] Work Phone: Immature granulocytes/100 WBC (Bld) 0.100 % 0.0-0.9 [facility] Work Phone: Comment on above: IG% - Immature Granu locytes (promyelocytes, myelocytes and metamyelocytes) > 1% indicates that a LEFT SHIFT is Present. MCH (RBC) [Entitic mass] 28.1 pg 27.0-32.0 [facility] Work Phone: Nucleated RBC/100 WBC (Bld) [Ratio] 0.3 % 0-5 [facility] Work Phone: MCHC Auto (RBC) [Mass/Vol]on 05-13-2021 MCHC (RBC) [Mass/Vol] 32.1 g/dL 32-36 [facility] Work Phone: No Panel Informationon 05-13 Estimated GFR (MDRD) Amer 389 mL/min >60 [facility] Work Phone: Comment on above: GFR Calc Estimated GFR (MDRD) Non-Af Amer 322 mL/min >60 [facility] Work Phone: Comment on above: Non- GFR Calc Platelets bldon 05-13-2021 Platelets (Bld) [#/Vol] 170 10*3/uL 150-450 [facility] Work Phone: Serum or plasma calcium jacinta urement (mass/volume)on 05-13-2021 Calcium [Mass/Vol] 8.9 mg/dL 8.5-10.1 [facility] Work Phone: Serum or plasma creatinine m easurement (mass/volume)on 05-13-2021 Creatinine [Mass/Vol] 0.33 mg/dL 0.70-1.30 [facility] Work Phone: Comment on above: The validity of the calculated GFR & GFRAA in patients over 70 years has not been determined. Clinical correlation is essential. Serum or plasma urea nitroge n measurement (mass/volume)on 05-13-2021 Urea nitrogen [Mass/Vol] 15 mg/dL 7-18 [facility] Work Phone: Thin prep Papanicolaou smear with manual screeningon 05-13-2021 Thin prep Papanicolaou smear with manual screening 3 5-15 [facility] Work Phone: Bronchoalveolar lavage cultu re with Gram stainon 04-28-2021 Respiratory Culture Pseudomonas aeroginosa [facility] Work Phone: Respiratory Culture Streptococcus agalactiae (B) [facility] Work Phone: Respiratory Culture Positive [facility] Work Phone: Gram stain for investigation of transfusion reactionon 04-28-2021 Microscopic observation Gram stain Nom (Unsp spec) [facility] Work Phone: Basophil percentageon 2021 Chloride [Moles/Vol] 105 mmol/L 98-[address] [facility] Work Phone: Glucose [Mass/Vol] 93 mg/dL 74-106 [facility]: Potassium [Moles/Vol] 4.0 mmol/L 3.5-5.1 [facility] Work Phone: Sodium [Moles/Vol] 139 mmol/L 136-145 [facility] Work Phone: WBC (Bld) [#/Vol] 6.8 10*3/uL 4.4-11.0 [facility] Work Phone: Blood erythrocytes count (nu mber/volume)on 04-21-2021 RBC (Bld) [#/Vol] 4.12 10*6/uL 4.6-6.2 [facility] Work [facility]: Blood hemoglobin measurement (mass/volume)on 04-21-2021 Hemoglobin (Bld) [Mass/Vol] 12.2 g/dL 13.0-16.5 [facility] Work Phone: Blood platelet mean volumeon 04-21-2021 Platelet mean volume (Bld) [Entitic vol] 11.3 fL 6.2-12.0 [facility] Work Phone: Determination of erythrocyte mean corpuscular volume (MCV)on 04-21-2021 MCV (RBC) [Entitic vol] 86.9 fL 80-94 [facility] Work Phone: Hematocrit Auto (Bld) [Volum e fraction]on 04-21-2021 Hematocrit (Bld) [Volume fraction] 35.8 % 40-54 [facility] Work Phone: Laboratory - Chemistry and C hemistry - challengeon 04-21-2021 CO2 [Moles/Vol] 29.0 mmol/L 21.0-32.0 [facility] Work Phone: Urea nitrogen/Creatinine [Mass ratio] 59.4 mg/mg 10-20 [facility] Work Phone: Laboratory - Hematology and Cell countson 04-21-2021 Erythrocyte distribution width (RBC) [Entitic vol] 43.7 fL 35.1-43.9 [facility] Work Phone: Erythrocyte distribution width (RBC) [Ratio] 13.9 % 11.6-14.6 [facility] Work Phone: MCH (RBC) [Entitic mass] 29.6 pg 27.0-32.0 [facility] Work Phone: MCHC Auto (RBC) [Mass/Vol]on 04-21-2021 MCHC (RBC) [Mass/Vol] 34.1 g/dL 32- [facility] Work Phone: No Panel Informationon 04-21 Estimated GFR (MDRD) Amer 424 mL/min >60 [facility] Work Phone: Comment on above: GFR Calc Estimated GFR (MDRD) Non-Af Amer 350 mL/min >60 [facility] Work Phone: Comment on above: Non- GFR Calc Platelets bldon 04-21-2021 Platelets (Bld) [#/Vol] 185 10*3/uL 150-450 [facility] Work Phone: Serum or plasma calcium jacinta urement (mass/volume)on 04-21-2021 Calcium [Mass/Vol] 8.6 mg/dL 8.5-10.1 [facility] Work Phone: Serum or plasma creatinine m easurement (mass/volume)on 04-21-2021 Creatinine [Mass/Vol] 0.30 mg/dL 0.70-1.30 [facility] Work Phone: Comment on above: The validity of the calculated GFR & GFRAA in patients over 70 years has not been determined. Clinical correlation is essential. Serum or plasma urea nitroge n measurement (mass/volume)on 04-21-2021 Urea nitrogen [Mass/Vol] 18 mg/dL 7-18 [facility] Work Phone: Thin prep Papanicolaou smear with manual screeningon 04-21-2021 Thin prep Papanicolaou smear with manual screening 5 5-15 [facility] Work Phone: Basophil percentageon 2021 Chloride [Moles/Vol] 103 mmol/L 98-107 [facility]: Glucose [Mass/Vol] 90 mg/dL 74-106 [facility] Work Phone: Potassium [Moles/Vol] 3.7 mmol/L 3.5-5.1 [facility] Work Phone: Sodium [Moles/Vol] 137 mmol/L 136-145 [facility] Work Phone: WBC (Bld) [#/Vol] 5.6 10*3/uL 4.4-11.0 [facility] Work Phone: Blood erythrocytes count (nu mber/volume)on 03-25-2021 RBC (Bld) [#/Vol] 4.03 10*6/uL 4.6-6.2 [facility] Work Phone: Blood hemoglobin measurement (mass/volume)on 03-25-2021 Hemoglobin (Bld) [Mass/Vol] 11.5 g/dL 13.0-16.5 [facility] Work Phone: Blood platelet mean volumeon 03-25-2021 Platelet mean volume (Bld) [Entitic vol] 10.5 fL 6.2-12.0 [facility] Work Phone: Determination of erythrocyte mean corpuscular volume (MCV)on 03-25-2021 MCV (RBC) [Entitic vol] 86.8 fL 80-94 [facility] Work Phone: Hematocrit Auto (Bld) [Volum e fraction]on 03-25-2021 Hematocrit (Bld) [Volume fraction] 35.0 % 40-54 [facility] Work Phone: Laboratory - Chemistry and C hemistry - challengeon 03-25-2021 CO2 [Moles/Vol] 28.0 mmol/L 21.0-32.0 [facility] Work Phone: Urea nitrogen/Creatinine [Mass ratio] 54.3 mg/mg 10-20 [facility] Work Phone: Laboratory - Hematology and Cell countson 03-25-2021 Erythrocyte distribution width (RBC) [Entitic vol] 44.0 fL 35.1-43.9 [facility] Work Phone: Erythrocyte distribution width (RBC) [Ratio] 13.7 % 11.6-14.6 [facility] Work Phone: MCH (RBC) [Entitic mass] 28.5 pg 27.0-32.0 [facility] Work Phone: MCHC Auto (RBC) [Mass/Vol]on 03-25-2021 MCHC (RBC) [Mass/Vol] 32.9 g/dL 32-36 [facility] Work Phone: No Panel Informationon 03-25 Estimated GFR (MDRD) Amer 359 mL/min >60 [facility] Work Phone: Comment on above: GFR Calc Estimated GFR (MDRD) Non-Af Amer 297 mL/min >60 [facility] Work Phone: Comment on above: Non- GFR Calc Platelets bldon 03-25-2021 Platelets (Bld) [#/Vol] 175 10*3/uL 150-450 [facility] Work Phone: Serum or plasma calcium jacinta urement (mass/volume)on 03-25-2021 Calcium [Mass/Vol] 8.2 mg/dL 8.5-10.1 [facility] Work Phone: Serum or plasma creatinine m easurement (mass/volume)on 03-25-2021 Creatinine [Mass/Vol] 0.35 mg/dL 0.70-1.30 [facility] Work Phone: Comment on above: The validity of the calculated GFR & GFRAA in patients over 70 years has not been determined. Clinical correlation is essential. Serum or plasma urea nitroge n measurement (mass/volume)on 03-25-2021 Urea nitrogen [Mass/Vol] 19 mg/dL 7-18 [facility] Work Phone: Thin prep Papanicolaou smear with manual screeningon 03-25-2021 Thin prep Papanicolaou smear with manual screening 6 5-15 [facility] Work Phone: Basophil percentageon 2021 Chloride [Moles/Vol] 104 mmol/L 98-107 [facility] Work Phone: Glucose [Mass/Vol] 130 mg/dL 74-106 [facility] Work Phone: Comment on above: Fasting Glucose resu lt greater than or equal to 126 mg/dL suggests DIABETES MELLITUS per A.D.A. criteria.Please note revised GLUCOSE reference range effective 2017. Potassium [Moles/Vol] 3.2 mmol/L 3.5-5.1 [facility] Work Phone: Sodium [Moles/Vol] 139 mmol/L 136-145 [facility] Work Phone: WBC (Bld) [#/Vol] 5.2 10*3/uL 4.4-11.0 [facility] Work Phone: Blood erythrocytes count (nu mber/volume)on 02-24-2021 RBC (Bld) [#/Vol] 3.88 10*6/uL 4.6-6.2 [facility] Work Phone: Blood hemoglobin measurement (mass/volume)on 02-24-2021 Hemoglobin (Bld) [Mass/Vol] 10.8 g/dL 13.0-16.5 [facility] Work Phone: Blood platelet mean volumeon 02-24-2021 Platelet mean volume (Bld) [Entitic vol] 10.7 fL 6.2-12.0 [facility] Work Phone: Determination of erythrocyte mean corpuscular volume (MCV)on 02-24-2021 MCV (RBC) [Entitic vol] 87.4 fL 80-94 [facility] Work Phone: Hematocrit Auto (Bld) [Volum e fraction]on 02-24-2021 Hematocrit (Bld) [Volume fraction] 33.9 % 40-54 [facility] Work Phone: Laboratory - Chemistry and C hemistry - challengeon 02-24-2021 CO2 [Moles/Vol] 26.0 mmol/L 21.0-32.0 [facility] Work Phone: Urea nitrogen/Creatinine [Mass ratio] 49.8 mg/mg 10-20 [facility] Work Phone: Laboratory - Hematology and Cell countson 02-24-2021 Erythrocyte distribution width (RBC) [Entitic vol] 45.6 fL 35.1-43.9 [facility] Work Phone: Erythrocyte distribution width (RBC) [Ratio] 14.3 % 11.6-14.6 [facility] Work Phone: MCH (RBC) [Entitic mass] 27.8 pg 27.0-32.0 [facility] Work Phone: MCHC Auto (RBC) [Mass/Vol]on 02-24-2021 MCHC (RBC) [Mass/Vol] 31.9 g/dL 32-36 [facility] Work Phone: No Panel Informationon 02-24 Estimated GFR (MDRD) Amer 463 mL/min >60 [facility] Work Phone: Comment on above: GFR Calc Estimated GFR (MDRD) Non-Af Amer 382 mL/min >60 [facility] Work Phone: Comment on above: Non- GFR Calc Platelets bldon 02-24-2021 Platelets (Bld) [#/Vol] 175 10*3/uL 150-450 [facility] Work Phone: Serum or plasma calcium jacinta urement (mass/volume)on 02-24-2021 Calcium [Mass/Vol] 8.3 mg/dL 8.5-10.1 [facility] Work Phone: Serum or plasma creatinine m easurement (mass/volume)on 02-24-2021 Creatinine [Mass/Vol] 0.28 mg/dL 0.70-1.30 [facility] Work Phone: Comment on above: The validity of the calculated GFR & GFRAA in patients over 70 years has not been determined. Clinical correlation is essential. Serum or plasma urea nitroge n measurement (mass/volume)on 02-24-2021 Urea nitrogen [Mass/Vol] 14 mg/dL 7-18 [facility] Work Phone: Thin prep Papanicolaou smear with manual screeningon 02-24-2021 Thin prep Papanicolaou smear with manual screening 9 5-15 [facility] Work Phone: Basophil percentageon 2020 Chloride [Moles/Vol] 103 mmol/L 98-107 [facility] Work Phone: Glucose [Mass/Vol] 89 mg/dL 74-106 [facility] Work Phone: Comment on above: Please note revised GLUCOSE reference range effective 2017. Potassium [Moles/Vol] 4.2 mmol/L 3.5-5.1 [facility] Work Phone: Sodium [Moles/Vol] 138 mmol/L 136-145 [facility] Work Phone: WBC (Bld) [#/Vol] 7.3 10*3/uL 4.4-11.0 [facility] Work Phone: Blood erythrocytes count (nu mber/volume)on 01-28-2021 RBC (Bld) [#/Vol] 4.27 10*6/uL 4.6-6.2 [facility] Work Phone: Blood hemoglobin measurement (mass/volume)on 01-28-2021 Hemoglobin (Bld) [Mass/Vol] 11.7 g/dL 13.0-16.5 [facility] Work Phone: Blood platelet mean volumeon 01-28-2021 Platelet mean volume (Bld) [Entitic vol] 10.6 fL 6.2-12.0 [facility] Work Phone: Determination of erythrocyte mean corpuscular volume (MCV)on 01-28-2021 MCV (RBC) [Entitic vol] 85.2 fL 80-94 [facility] Work Phone: Hematocrit Auto (Bld) [Volum e fraction]on 01-28-2021 Hematocrit (Bld) [Volume fraction] 36.4 % 40-54 [facility] Work Phone: Laboratory - Chemistry and C hemistry - challengeon 01-28-2021 CO2 [Moles/Vol] 29.0 mmol/L 21.0-32.0 [facility] Work Phone: Urea nitrogen/Creatinine [Mass ratio] 41.8 mg/mg 10-20 [facility] Work Phone: Laboratory - Hematology and Cell countson 01-28-2021 Erythrocyte distribution width (RBC) [Entitic vol] 44.3 fL 35.1-43.9 [facility] Work Phone: Erythrocyte distribution width (RBC) [Ratio] 14.3 % 11.6-14.6 [facility] Work Phone: MCH (RBC) [Entitic mass] 27.4 pg 27.0-32.0 [facility] Work Phone: MCHC Auto (RBC) [Mass/Vol]on 01-28-2021 MCHC (RBC) [Mass/Vol] 32.1 g/dL 32-36 [facility] Work Phone: No Panel Informationon 01-28 Estimated GFR (MDRD) Amer 378 mL/min >60 [facility] Work Phone: Comment on above: GFR Calc Estimated GFR (MDRD) Non-Af Amer 312 mL/min >60 [facility] Work Phone: Comment on above: Non- GFR Calc Platelets bldon 01-28-2021 Platelets (Bld) [#/Vol] 233 10*3/uL 150-450 [facility] Work Phone: Serum or plasma calcium jacinta urement (mass/volume)on 01-28-2021 Calcium [Mass/Vol] 8.8 mg/dL 8.5-10.1 [facility] Work Phone: Serum or plasma creatinine m easurement (mass/volume)on 01-28-2021 Creatinine [Mass/Vol] 0.34 mg/dL 0.70-1.30 [facility] Work Phone: Comment on above: The validity of the calculated GFR & GFRAA in patients over 70 years has not been determined. Clinical correlation is essential. Serum or plasma urea nitroge n measurement (mass/volume)on 01-28-2021 Urea nitrogen [Mass/Vol] 14 mg/dL 7-18 [facility] Work Phone: Thin prep Papanicolaou smear with manual screeningon 01-28-2021 Thin prep Papanicolaou smear with manual screening 6 5-15 [facility] Work Phone: Office Visit: Peg changeon 0 10-09-2016 Documentation of current medications (procedure) Done Invalid Interpretation Code [facility] [employer] Work Phone: Fall risk assessment No Invalid Interpretation Code [facility] [employer] Work Phone: Tobacco smoking status NHIS Never Invalid Interpretation Code [facility] [employer] Work Phone: Tobacco use CPHS Never smoker Invalid Interpretation Code [facility] Work Phone: Lab Report: BNP,B-Type NATRI URETIC PEPTIDEon 08-28-2016 BNP 9.5 pg/mL Invalid Interpretation Code 0-100 [facility] Work Phone: [phone] Lab Report: Basic Metabolic Profile (BMP)on 08-28-2016 Anion gap 4 mmol/L Low 5-15 [facility] Work Phone: [phone] BUN/Creatinine Ratio 76.9 RATIO High 10-[address] [facility] Work Phone: [phone] Calcium 8.7 mg/dL Invalid Interpretation Code 8.5-10.1 [facility] Work Phone: [phone] Chloride 106 mmol/L Invalid Interpretation Code 98-107 [facility] Work Phone: [phone] CO2 31.0 mmol/L Invalid Interpretation Code 21.0-32.0 [facility] Work Phone: [phone] Creatinine 0.32 mg/dL Low 0.70-1.30 [facility] Work Phone: [phone] eGFR (non-black) 401 mL/min/{1.73_m2} Invalid Interpretation Code >60 [facility] Work Phone: [phone] eGFR (non-black) 332 mL/min/{1.73_m2} Invalid Interpretation Code >60 [facility] Work Phone: [phone] Glucose 114 mg/dL High 70-110 [facility] Work Phone: [phone] Potassium 3.6 mmol/L Invalid Interpretation Code 3.5-5.1 [facility] Work Phone: [phone] Sodium 141 mmol/L Invalid Interpretation Code 136-145 [facility] Work Phone: [phone] Urea nitrogen 25 mg/dL High 7-18 [facility] Work Phone: [phone] Office Visiton 08-28-2016 Documentation of current medications (procedure) Done Invalid Interpretation Code [facility] Work Phone: [phone] Fall risk assessment No Invalid Interpretation Code [facility] Work Phone: [phone] Clinical Lists Update: 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 vegetable sorter 08-24-2016 Erythrocytes (RBC) 3.93 10*6/uL Low [facility] Work Phone: [phone] Hematocrit (HCT) 35.4 % Low [facility] Work Phone: [phone] Hemoglobin (HGB) 11.3 g/dL Low [facility] Work Phone: [phone] MCH 28.8 pg Invalid Interpretation Code [facility] Work Phone: [phone] MCHC 31.9 g/dL Low [facility] Work Phone: [phone] MCV 90.1 fL Invalid Interpretation Code [facility] Work Phone: [phone] Platelets 89 10*3/mm3 Low [facility] Work Phone: [phone] PMV by Garrett 12.6 fL High [facility] Work Phone: [phone] RDW-CA 15.7 % High [facility] Work Phone: [phone] WBC (Leukocytes) 4.1 10*3/uL Low [facility] Work Phone: [phone] Office Visit: S/P [place] [facility] 06-15-2016 Documentation of current medications (procedure) Done Invalid Interpretation Code [facility] Work Phone: [phone] Fall risk assessment No Invalid Interpretation Code [facility] Work Phone: [phone] Tobacco smoking status NHIS Never Invalid Interpretation Code [facility] Work Phone: [phone] Tobacco use CPHS Never smoker Invalid Interpretation Code [facility] Work Phone: [phone] Lab Report: CBC-Complete Blo od Cnt No Diffon 05-28-2016 Erythrocytes (RBC) 3.67 10*6/uL Low 4.6-6.[address] [facility] Work Phone: [phone] Hematocrit (HCT) 32.9 % Low 40-54 [facility] Work Phone: [phone] Hemoglobin (HGB) 10.9 g/dL Low 13.0-16.5 [facility] Work Phone: [phone] MCH 29.7 pg Invalid Interpretation Code 27.0-32.0 [facility] Work Phone: [phone] MCHC 33.1 G/GL Invalid Interpretation Code 32-36 [facility] Work Phone: [phone] MCV 89.6 fL Invalid Interpretation Code 80-94 [facility] Work Phone: [phone] Platelets 115 10*3/mm3 Low 150-450 [facility] Work Phone: [phone] PMV by Garrett 11.5 fL Invalid Interpretation Code 6.2-12.0 [facility] Work Phone: [phone] RDW-CA 14.9 % High 11.6-14.6 [facility] Work Phone: [phone] red blood cell distribution width, size density 48.2 fL High 35.1-43.9 [facility] Work Phone: [phone] WBC (Leukocytes) 5.4 10*3/uL Invalid Interpretation Code 4.4-11.0 [facility] [employer] Work Phone: [phone] Lab Report: Partial Thrombop last Timeon 05-28-2016 aPTT 24.9 s Invalid Interpretation Code 24.1-36.2 [facility] [facility] Work Phone: [phone] Lab Report: Prothrombin Time w/INRon 05-28-2016 Coagulation tissue factor induced in platelet poor plasma 12.7 s Invalid Interpretation Code 11.7-14.9 [facility] Work Phone: [phone] INR in blood by coagulation 1.0 {INR} Invalid Interpretation Code [facility] [facility] Work Phone: [phone] Microbiology: Culture, Wound on 01-10-2016 wound culture Vancomycin $ 1 S Invalid Interpretation Code [facility] [facility] Work Phone: [phone] Lab Report: Basic Metabolic Profile (BMP)on 09-19-2015 Anion gap 10 mmol/L Invalid Interpretation Code 5-15 [facility] Work Phone: [phone] BUN/Creatinine Ratio 10.9 RATIO Invalid Interpretation Code 10-20 [facility] Work Phone: [phone] Calcium 8.2 mg/dL Low 8.5-10.1 [facility] [employer] Work Phone: [phone] Chloride 109 mmol/L High 98-107 [facility] [facility] Work Phone: [phone] CO2 23.0 mmol/L Invalid Interpretation Code 21.0-32.0 [facility] Work Phone: [phone] Creatinine 361.97 mL/min Invalid Interpretation Code [facility] Work Phone: [phone] Creatinine 0.28 mg/dL Low 0.70-1.30 [facility] Work Phone: [phone] eGFR (non-black) 403 mL/min/{1.73_m2} Invalid Interpretation Code >60 [facility] Work Phone: [phone] eGFR (non-black) 487 mL/min/{1.73_m2} Invalid Interpretation Code >60 [facility] Work Phone: [phone] Glucose 66 mg/dL Low 70-110 [facility] Work Phone: [phone] Potassium 3.1 mmol/L Low 3.5-5.1 [facility] Work Phone: [phone] Sodium 142 mmol/L Invalid Interpretation Code 136-145 [facility] Work Phone: [phone] Urea nitrogen 3 mg/dL Low 7-18 [facility]: [phone] Lab Report: CBC W/Diff, Auto matedon 09-19-2015 Basophils/100 leukocytes 0.2 % Invalid Interpretation Code 0-1 [facility] Work Phone: [phone] Eosinophils/100 leukocytes 1.8 % Invalid Interpretation Code 0-5 [facility] Work Phone: [phone] immature granulocytes, percentage of total cells, blood 0.200 % Invalid Interpretation Code 0.0-0.9 [facility] Work Phone: [phone] Lymphocytes 2.07 X10 3/UL Invalid Interpretation Code 0.83-4.51 [facility] Work Phone: [phone] Lymphocytes/100 leukocytes 40.9 % Invalid Interpretation Code 19-41 [facility] Work Phone: [phone] Monocytes/100 leukocytes 13.8 % High 0-10 [facility] Work Phone: [phone] neutrophil count, blood 2.2 X10 3/UL Invalid Interpretation Code 2.0-7.7 [facility] Work Phone: Neutrophils/100 leukocytes 43.1 % Low 47-70 [facility] Work Phone: Clinical Lists Update: Prelo vegetable sorter 07-03-2014 Smoking cessation education (procedure) yes Invalid Interpretation Code [facility] Work Phone: Bronchoalveolar lavage cultu re with Gram stain Respiratory Culture Pseudomonas aeroginosa [facility] Work Phone: Respiratory Culture Streptococcus agalactiae (B) [facility] Work Phone: Respiratory Culture Positive [facility] Work Phone: Gram stain for investigation of transfusion reaction Microscopic observation Gram stain Nom (Unsp spec) [facility] Work Phone: Laboratory - Microbiology an d Antimicrobial susceptibility Respiratory pathogens DNA and RNA 12b panel YAYO+probe (Unsp spec) [facility] Work Phone: No Panel Information Respiratory Panel (PCR) [facility] Work Phone: SARS-CoV-2 & FLU Antigen (Rapid) [facility] Work Phone: Vital Signs Date Time Vital Sign Value Performing Clinician Facility 06-15-2024 13:47-0400 Body height 152.[address] Chente Conn MD Work Phone: [facility] 06-15-2024 13:47-0400 Body mass index (BMI) [Ratio] 33.2 kg/m2 Dr. Chente Conn MD Work Phone: [facility] 06-15-2024 13:47-0400 Body weight 77.[address] Chente Conn MD Work Phone: [facility] 06-15-2024 13:47-0400 Diastolic blood pressure 59 mm[Hg] Dr. Chente Conn MD Work Phone: [facility] 06-15-2024 13:47-0400 Heart rate 58 /min Dr. Chente Conn MD Work Phone: [facility] 06-15-2024 13:47-0400 Inhaled oxygen flow rate 2 L/min Dr. Chente Conn MD Work Phone: [facility] 06-15-2024 13:47-0400 SaO2% (BldA) [Mass fraction] 95 % Dr. Chente Conn MD Work Phone: [facility] 06-15-2024 13:47-0400 Systolic blood pressure 87 mm[Hg] Dr. Chente Conn MD Work Phone: 3(468)781-846342 [address] 04-04-2024 08:14-0500 Body mass index (BMI) [Ratio] 33.2 kg/m2 Dr. Chente Conn MD Work Phone: 2(664)270-152227 [place] [address] 04-04-2024 08:14-0500 Body temperature 97.1 [degF] Dr. Chente Conn MD Work Phone: 9(556)976-787027 [place] [address] 04-04-2024 08:14-0500 Body weight 77.[address] Chente Conn MD Work Phone: 9(730)796-902142 [address] 04-04-2024 08:14-0500 Diastolic blood pressure 78 mm[Hg] Dr. Chente Conn MD Work Phone: 9(800)292-829227 [place] [address] 04-04-2024 08:14-0500 Heart rate 73 /min Dr. Chente Conn MD Work Phone: 2(552)472-544727 [place] [address] 04-04-2024 08:14-0500 Inhaled oxygen flow rate 2 L/min Dr. Chente Conn MD Work Phone: 8(279)310-721755 [place] [address] 04-04-2024 08:14-0500 Respiratory rate 20 /min Dr. Chente Conn MD Work Phone: 8(022)207-051742 [address] 04-04-2024 08:14-0500 SaO2% (BldA) [Mass fraction] 97 % Dr. Chente Conn MD Work Phone: 3(119)934-287555 [place] [address] 04-04-2024 08:14-0500 Systolic blood pressure 124 mm[Hg] Dr. Chente Conn MD Work Phone: 3(607)054-749542 [address] 2024 22:05-0500 Body temperature 97.9 [degF] Dr. Chente Conn MD Work Phone: 5(757)315-602155 [place] [address] 2024 22:05-0500 Diastolic blood pressure 106 mm[Hg] Dr. Chente Conn MD Work Phone: 1(154)323-600955 [place] [address] 2024 22:05-0500 Heart rate 72 /min Dr. Chente Conn MD Work Phone: 7(904)955-811727 [place] [address] 2024 22:05-0500 Respiratory rate 20 /min Dr. Chente Conn MD Work Phone: 4(883)395-695527 [place] [address] 2024 22:05-0500 SaO2% (BldA) [Mass fraction] 98 % Dr. Chente Conn MD Work Phone: 0(202)625-615927 [place] [address] 2024 22:05-0500 Systolic blood pressure 155 mm[Hg] Dr. Chente Conn MD Work Phone: 3(328)991-706455 [place] [address] 2024 22:00-0500 Inhaled oxygen flow rate 4 L/min Dr. Chente Conn MD Work Phone: 9(474)309-819127 [place] [address] 2024 18:08-0500 Inhaled oxygen concentration 4 % Dr. Chente Conn MD Work Phone: 5(544)355-252927 [place] [address] 2024 16:08-0500 Body height 152.[address] Chente Conn MD Work Phone: 3(845)166-421927 [place] [address] 2024 16:08-0500 Body mass index (BMI) [Ratio] 36.2 kg/m2 Dr. Chente Conn MD Work Phone: 2(348)313-792027 [place] [address] 2024 16:08-0500 Body weight 84.[address] Chente Conn MD Work Phone: 7(796)868-467527 [place] [address] 04-13-2023 16:06-0500 Body temperature 98.6 [degF] Dr. Chente Conn Work Phone: 6(091)001-707955 [place] [address] 04-13-2023 16:06-0500 Diastolic blood pressure 78 mm[Hg] Dr. Chente Conn Work Phone: [facility] 04-13-2023 16:06-0500 Heart rate 91 /min Dr. Chente Conn Work Phone: [facility] 04-13-2023 16:06-0500 Respiratory rate 17 /min Dr. Chente Conn Work Phone: 4(229)980-177855 [place] [address] 04-13-2023 16:06-0500 SaO2% (BldA) [Mass fraction] 96 % Dr. Chente Conn Work Phone: 0(379)928-007755 [place] [address] 04-13-2023 16:06-0500 Systolic blood pressure 101 mm[Hg] Dr. Chente Conn Work Phone: 2(377)465-229155 [place] [address] 04-13-2023 12:40-0500 Inhaled oxygen flow rate 3.5 L/min Dr. Chente Conn Work Phone: 5(692)811-650255 [place] [address] 04-13-2023 12:11-0500 Body height 152.[address] Chente Conn Work Phone: 2(399)424-301655 [place] [address] 04-13-2023 12:11-0500 Body mass index (BMI) [Ratio] 34.2 kg/m2 Dr. Chente Conn Work Phone: 7(685)488-316955 [place] [address] 04-13-2023 12:11-0500 Body weight 79.[address] Chente Conn Work Phone: [facility] 03-25-2023 09:30-0500 Inhaled oxygen flow rate 5 L/min Dr. Chente Conn Work Phone: 5(789)874-810655 [place] [address] 03-25-2023 09:17-0500 Body temperature 97.3 [degF] Dr. Chente Conn Work Phone: [facility] 03-25-2023 09:17-0500 Diastolic blood pressure 78 mm[Hg] Dr. Chente Conn Work Phone: [facility] 03-25-2023 09:17-0500 Heart rate 57 /min Dr. Chente Conn Work Phone: [facility] 03-25-2023 09:17-0500 Respiratory rate 13 /min Dr. Chente Conn Work Phone: [facility] 03-25-2023 09:17-0500 SaO2% (BldA) [Mass fraction] 97 % Dr. Chente Conn Work Phone: [facility] 03-25-2023 09:17-0500 Systolic blood pressure 121 mm[Hg] Dr. Chente Conn Work Phone: [facility] 03-25-2023 03:46-0500 Body mass index (BMI) [Ratio] 34.3 kg/m2 Dr. Chente Conn Work Phone: [facility] 03-25-2023 03:46-0500 Body weight 79.[address] Chente Conn Work Phone: [facility] 03-24-2023 09:21-0500 Body height 152.[address] Chente Conn Work Phone: [facility] 03-23-2023 16:45-0500 Body temperature 97.6 [degF] Dr. Chente Conn Work Phone: [facility] 03-23-2023 16:45-0500 Diastolic blood pressure 81 mm[Hg] Dr. Chente Conn Work Phone: [facility] 03-23-2023 16:45-0500 Heart rate 112 /min Dr. Chente Conn Work Phone: [facility] 03-23-2023 16:45-0500 Respiratory rate 20 /min Dr. Chente Conn Work Phone: [facility] 03-23-2023 16:45-0500 Systolic blood pressure 124 mm[Hg] Dr. Chente Conn Work Phone: [facility] 03-23-2023 15:25-0500 SaO2% (BldA) [Mass fraction] 95 % Dr. Chente Conn Work Phone: [facility] 03-23-2023 12:12-0500 Body height 152.[address] Chente Conn Work Phone: [facility] 03-23-2023 12:12-0500 Body mass index (BMI) [Ratio] 34.8 kg/m2 Dr. Chente Conn Work Phone: [facility] 03-23-2023 12:12-0500 Body weight 80.[address] Chente Conn Work Phone: 6(003)642-255955 [place] [address] 03-02-2023 09:13-0500 Body height 152.[address] Chente Conn Work Phone: 9(241)920-996442 [address] 03-02-2023 09:13-0500 Body mass index (BMI) [Ratio] 29.2 kg/m2 Dr. Chente Conn Work Phone: 4(961)957-426455 [place] [address] 03-02-2023 09:13-0500 Body temperature 97.3 [degF] Dr. Chente Conn Work Phone: 3(824)377-826655 [place] [address] 03-02-2023 09:13-0500 Body weight 68.[address] Chente Conn Work Phone: 3(558)288-357355 [place] [address] 03-02-2023 09:13-0500 Diastolic blood pressure 74 mm[Hg] Dr. Chente Conn Work Phone: [facility] 03-02-2023 09:13-0500 Heart rate 77 /min Dr. Chente Conn Work Phone: 2(691)933-750255 [place] [address] 03-02-2023 09:13-0500 Inhaled oxygen flow rate 2 L/min Dr. Chente Conn Work Phone: [facility] 03-02-2023 09:13-0500 Respiratory rate 20 /min Dr. Chente Conn Work Phone: [facility] 03-02-2023 09:13-0500 SaO2% (BldA) [Mass fraction] 97 % Dr. Chente Conn Work Phone: [facility] 03-02-2023 09:13-0500 Systolic blood pressure 104 mm[Hg] Dr. Chente Conn Work Phone: [facility] 01-16-2023 23:36-0500 Diastolic blood pressure 78 mm[Hg] Dr. Chente Conn Work Phone: [facility] 01-16-2023 23:36-0500 Heart rate 91 /min Dr. Chente Conn Work Phone: [facility] 01-16-2023 23:36-0500 Respiratory rate 16 /min Dr. Chente Conn Work Phone: [facility] 01-16-2023 23:36-0500 SaO2% (BldA) [Mass fraction] 98 % Dr. Chente Conn Work Phone: [facility] 01-16-2023 23:36-0500 Systolic blood pressure 127 mm[Hg] Dr. Chente Conn Work Phone: [facility] 01-16-2023 21:05-0500 Inhaled oxygen flow rate 4 L/min Dr. Chente Conn Work Phone: [facility] 01-16-2023 19:17-0500 Body height 152.[address] Chente Conn Work Phone: [facility] 01-16-2023 19:17-0500 Body mass index (BMI) [Ratio] 34.4 kg/m2 Dr. Chente Conn Work Phone: [facility] 01-16-2023 19:17-0500 Body temperature 97.3 [degF] Dr. Chente Conn Work Phone: [facility] 01-16-2023 19:17-0500 Body weight [address] Chente Conn Work Phone: [facility] 12-13-2022 14:22-0400 Inhaled oxygen concentration 30 % Dr. Chente Conn Work Phone: [facility] 12-13-2022 08:25-0400 Inhaled oxygen flow rate 4.5 L/min Dr. Chente Conn Work Phone: [facility] 12-13-2022 08:25-0400 SaO2% (BldA) [Mass fraction] 97 % Dr. Chente Conn Work Phone: [facility] 12-13-2022 07:56-0400 Body temperature 98.6 [degF] Dr. Chente Conn Work Phone: [facility] 12-13-2022 07:56-0400 Diastolic blood pressure 98 mm[Hg] Dr. Chente Conn Work Phone: [facility] 12-13-2022 07:56-0400 Heart rate 89 /min Dr. Chente Conn Work Phone: [facility] 12-13-2022 07:56-0400 Respiratory rate 18 /min Dr. Chente Conn Work Phone: [facility] 12-13-2022 07:56-0400 Systolic blood pressure 150 mm[Hg] Dr. Chente Conn Work Phone: [facility] 12-11-2022 13:56-0400 Body temperature 98.2 [degF] Dr. Chente Conn Work Phone: [facility] 12-11-2022 13:56-0400 Diastolic blood pressure 40 mm[Hg] Dr. Chente Conn Work Phone: [facility] 12-11-2022 13:56-0400 Heart rate 81 /min Dr. Chente Conn Work Phone: [facility] 12-11-2022 13:56-0400 Respiratory rate 18 /min Dr. Chente Conn Work Phone: [facility] 12-11-2022 13:56-0400 SaO2% (BldA) [Mass fraction] 100 % Dr. Chente Conn Work Phone: [facility] 12-11-2022 13:56-0400 Systolic blood pressure 147 mm[Hg] Dr. Chente Conn Work Phone: [facility] 12-11-2022 13:28-0400 Inhaled oxygen concentration 30 % Dr. Chente Conn Work Phone: [facility] 12-11-2022 12:44-0400 Inhaled oxygen flow rate 8 L/min Dr. Chente Conn Work Phone: [facility] 12-10-2022 16:06-0400 Body height 152.[address] Chente Conn Work Phone: [facility] 12-10-2022 16:06-0400 Body weight 77.[address] Chente Conn Work Phone: [facility] 12-10-2022 14:53-0400 Body mass index (BMI) [Ratio] 33.3 kg/m2 Dr. Chente Conn Work Phone: [facility] 12-10-2022 14:36-0400 Heart rate 112 /min Dr. Chente Conn Work Phone: [facility] 12-10-2022 14:36-0400 Respiratory rate 26 /min Dr. Chente Conn Work Phone: [facility] 12-10-2022 14:36-0400 SaO2% (BldA) [Mass fraction] 98 % Dr. Chente Conn Work Phone: [facility] 12-10-2022 12:40-0400 Body temperature 99.3 [degF] Dr. Chente Conn Work Phone: [facility] 12-10-2022 12:40-0400 Diastolic blood pressure 86 mm[Hg] Dr. Chente Conn Work Phone: [facility] 12-10-2022 12:40-0400 Systolic blood pressure 140 mm[Hg] Dr. Chente Conn Work Phone: [facility] 12-10-2022 09:37-0400 Body height 152.[address] Chente Conn Work Phone: [facility] 12-10-2022 09:37-0400 Body mass index (BMI) [Ratio] 40 kg/m2 Dr. Chente Conn Work Phone: [facility] 12-10-2022 09:37-0400 Body weight [address] Chente Conn Work Phone: [facility] 11-05-2022 14:00-0400 Inhaled oxygen concentration 28 % Dr. Chente Conn Work Phone: 9(144)659-008842 [address] 11-05-2022 13:30-0400 Body temperature 97 [degF] Dr. Chente Conn Work Phone: 0(915)036-123242 [address] 11-05-2022 13:30-0400 Diastolic blood pressure 93 mm[Hg] Dr. Chente Conn Work Phone: [facility] 11-05-2022 13:30-0400 Heart rate 90 /min Dr. Chente Conn Work Phone: 6(041)281-405255 [place] [address] 11-05-2022 13:30-0400 Inhaled oxygen flow rate 3 L/min Dr. Chente Conn Work Phone: [facility] 11-05-2022 13:30-0400 Respiratory rate 16 /min Dr. Chente Conn Work Phone: [facility] 11-05-2022 13:30-0400 SaO2% (BldA) [Mass fraction] 93 % Dr. Chente Conn Work Phone: [facility] 11-05-2022 13:30-0400 Systolic blood pressure 138 mm[Hg] Dr. Chente Conn Work Phone: [facility] 11-02-2022 10:44-0400 Body height 152.[address] Chente Conn Work Phone: [facility] 11-02-2022 10:44-0400 Body weight [address] Chente Conn Work Phone: [facility] 10-28-2022 05:38-0400 Body mass index (BMI) [Ratio] 32.8 kg/m2 Dr. Chente Conn Work Phone: [facility] 09-17-2022 13:19-0400 Body height 150.[address] Chente Conn Work Phone: [facility] 09-17-2022 13:19-0400 Body mass index (BMI) [Ratio] 32.2 kg/m2 Dr. Chente Conn Work Phone: [facility] 09-17-2022 13:19-0400 Body temperature 96.6 [degF] Dr. Chente Conn Work Phone: [facility] 09-17-2022 13:19-0400 Body weight 72.[address] Chente Conn Work Phone: [facility] 09-17-2022 13:19-0400 Diastolic blood pressure 72 mm[Hg] Dr. Chente Conn Work Phone: [facility] 09-17-2022 13:19-0400 Heart rate 78 /min Dr. Chente Conn Work Phone: [facility] 09-17-2022 13:19-0400 Inhaled oxygen flow rate 2 L/min Dr. Chente Conn Work Phone: [facility] 09-17-2022 13:19-0400 Respiratory rate 20 /min Dr. Chente Conn Work Phone: [facility] 09-17-2022 13:19-0400 SaO2% (BldA) [Mass fraction] 96 % Dr. Chente Conn Work Phone: [facility] 09-17-2022 13:19-0400 Systolic blood pressure 110 mm[Hg] Dr. Chente Conn Work Phone: [facility] 05-01-2023 20:35-0400 Body temperature 97.6 [degF] Dr. Chente Conn Work Phone: [facility] 06-22-2022 20:35-0400 Diastolic blood pressure 74 mm[Hg] Dr. Chente Conn Work Phone: [facility] 06-22-2022 20:35-0400 Heart rate 90 /min Dr. Chente Conn Work Phone: [facility] 06-22-2022 20:35-0400 Respiratory rate 18 /min Dr. Chente Conn Work Phone: [facility] 06-22-2022 20:35-0400 SaO2% (BldA) [Mass fraction] 94 % Dr. Chente Conn Work Phone: [facility] 06-22-2022 20:35-0400 Systolic blood pressure 102 mm[Hg] Dr. Chente Conn Work Phone: [facility] 06-22-2022 18:20-0400 Body height 150.[address] Chente Conn Work Phone: [facility] 06-22-2022 18:20-0400 Body mass index (BMI) [Ratio] 38.7 kg/m2 Dr. Chente Conn Work Phone: [facility] 06-22-2022 18:20-0400 Body weight 87.[address] Chente Conn Work Phone: [facility] 06-22-2022 18:20-0400 Inhaled oxygen flow rate 4 L/min Dr. Chente Conn Work Phone: [facility] 06-12-2022 12:17-0400 Body temperature 97.5 [degF] Dr. Chente Conn Work Phone: [facility] 06-12-2022 12:17-0400 Diastolic blood pressure 73 mm[Hg] Dr. Chente Conn Work Phone: [facility] 06-12-2022 12:17-0400 Heart rate 64 /min Dr. Chente Conn Work Phone: [facility] 06-12-2022 12:17-0400 Respiratory rate 18 /min Dr. Chente Conn Work Phone: [facility] 06-12-2022 12:17-0400 SaO2% (BldA) [Mass fraction] 96 % Dr. Chente Conn Work Phone: [facility] 06-12-2022 12:17-0400 Systolic blood pressure 109 mm[Hg] Dr. Chente Conn Work Phone: [facility] 06-12-2022 10:38-0400 Body height 149.[address] Chente Conn Work Phone: 1(083)996-977455 [place] [address] 06-12-2022 10:38-0400 Body mass index (BMI) [Ratio] 34.2 kg/m2 Dr. Chente Conn Work Phone: 0(113)599-987755 [place] [address] 06-12-2022 10:38-0400 Body weight [address] Chente Conn Work Phone: [facility] 06-12-2022 10:38-0400 Inhaled oxygen flow rate 5 L/min Dr. Chente Conn Work Phone: [facility] 04-01-2022 09:00-0500 Body temperature 99.2 [degF] Dr. Chente Conn Work Phone: [facility] 04-01-2022 09:00-0500 Diastolic blood pressure 90 mm[Hg] Dr. Chente Conn Work Phone: [facility] 04-01-2022 09:00-0500 Heart rate 88 /min Dr. Chente Conn Work Phone: [facility] 04-01-2022 09:00-0500 Inhaled oxygen flow rate 4 L/min Dr. Chente Conn Work Phone: [facility] 04-01-2022 09:00-0500 Respiratory rate 20 /min Dr. Chente Conn Work Phone: [facility] 04-01-2022 09:00-0500 SaO2% (BldA) [Mass fraction] 96 % Dr. Chente Conn Work Phone: [facility] 04-01-2022 09:00-0500 Systolic blood pressure 117 mm[Hg] Dr. Chente Conn Work Phone: [facility] 04-01-2022 04:58-0500 Body weight 76.[address] Chente Conn Work Phone: [facility] 03-31-2022 09:20-0500 Body height 151.[address] Chente Conn Work Phone: [facility] 03-24-2022 21:35-0500 Body height 151.[address] Chente Conn Work Phone: [facility] 03-24-2022 21:35-0500 Body mass index (BMI) [Ratio] 33.8 kg/m2 Dr. Chente Conn Work Phone: [facility] 03-24-2022 21:35-0500 Body weight 78.[address] Chente Conn Work Phone: [facility] 03-24-2022 20:54-0500 Body temperature 104 [degF] Dr. Chente Conn Work Phone: [facility] 03-24-2022 20:54-0500 Diastolic blood pressure 123 mm[Hg] Dr. Chente Conn Work Phone: [facility] 03-24-2022 20:54-0500 Heart rate 153 /min Dr. Chente Conn Work Phone: [facility] 03-24-2022 20:54-0500 Respiratory rate 44 /min Dr. Chente Conn Work Phone: [facility] 03-24-2022 20:54-0500 SaO2% (BldA) [Mass fraction] 93 % Dr. Chente Conn Work Phone: [facility] 03-24-2022 20:54-0500 Systolic blood pressure 145 mm[Hg] Dr. Chente Conn Work Phone: [facility] 03-24-2022 17:08-0500 Body height 152.[address] Chente Conn Work Phone: [facility] 03-24-2022 17:08-0500 Body mass index (BMI) [Ratio] 31.2 kg/m2 Dr. Chente Conn Work Phone: [facility] 03-24-2022 17:08-0500 Body weight 72.[address] Chente Conn Work Phone: [facility] 02-24-2022 22:38-0500 Body temperature 98.9 [degF] Dr. Chente Conn Work Phone: [facility] 02-24-2022 22:38-0500 Diastolic blood pressure 78 mm[Hg] Dr. Chente Conn Work Phone: [facility] 02-24-2022 22:38-0500 Heart rate 78 /min Dr. Chente Conn Work Phone: [facility] 02-24-2022 22:38-0500 Respiratory rate 13 /min Dr. Chente Conn Work Phone: [facility] 02-24-2022 22:38-0500 SaO2% (BldA) [Mass fraction] 95 % Dr. Chente Conn Work Phone: [facility] 02-24-2022 22:38-0500 Systolic blood pressure 127 mm[Hg] Dr. Chente Conn Work Phone: [facility] 02-24-2022 19:50-0500 Inhaled oxygen flow rate 4 L/min Dr. Chente Conn Work Phone: [facility] 02-24-2022 16:09-0500 Body height 152.[address] Chente Conn Work Phone: [facility] Work Phone: 02-24-2022 16:09-0500 Body mass index (BMI) [Ratio] 31.6 kg/m2 Dr. Chente Conn Work Phone: [facility] 02-24-2022 16:09-0500 Body weight 73.[address] Chente Conn Work Phone: [facility] 01-06-2022 13:12-0500 Body height 152.[address] Chente Conn Work Phone: [facility] Work Phone: 01-06-2022 13:12-0500 Body mass index (BMI) [Ratio] 31.2 kg/m2 Dr. Chente Conn Work Phone: [facility] 01-06-2022 13:12-0500 Body weight 72.[address] Chente Conn Work Phone: [facility] 01-06-2022 13:12-0500 Diastolic blood pressure 109 mm[Hg] Dr. Chente Conn Work Phone: [facility] 01-06-2022 13:12-0500 Heart rate 106 /min Dr. Chente Conn Work Phone: [facility] 01-06-2022 13:12-0500 Respiratory rate 18 /min Dr. Chente Conn Work Phone: [facility] 01-06-2022 13:12-0500 SaO2% (BldA) [Mass fraction] 94 % Dr. Chente Conn Work Phone: [facility] 01-06-2022 13:12-0500 Systolic blood pressure 144 mm[Hg] Dr. Chente Conn Work Phone: [facility] 12-19-2021 13:22-0400 Body height 152.[address] Chente Conn Work Phone: [facility] Work Phone: 12-19-2021 13:22-0400 Body mass index (BMI) [Ratio] 31.2 kg/m2 Dr. Chente Conn Work Phone: [facility] 12-19-2021 13:22-0400 Body temperature 95.7 [degF] Dr. Chente Conn Work Phone: [facility] 12-19-2021 13:22-0400 Body weight 72.[address] Chente Conn Work Phone: [facility] 12-19-2021 13:22-0400 Diastolic blood pressure 76 mm[Hg] Dr. Chente Conn Work Phone: [phone] [place] [address] 12-19-2021 13:22-0400 Heart rate 66 /min Dr. Chente Conn Work Phone: [facility] 12-19-2021 13:22-0400 Inhaled oxygen flow rate 2 L/min Dr. Chente Conn Work Phone: [facility] 12-19-2021 13:22-0400 Respiratory rate 18 /min Dr. Chente Conn Work Phone: [facility] 12-19-2021 13:22-0400 SaO2% (BldA) [Mass fraction] 94 % Dr. Chente Conn Work Phone: [facility] 12-19-2021 13:22-0400 Systolic blood pressure 110 mm[Hg] Dr. Chente Conn Work Phone: [facility] 12-05-2021 15:00-0400 Body temperature 98.2 [degF] Dr. Chente Conn Work Phone: [facility] 12-05-2021 15:00-0400 Diastolic blood pressure 95 mm[Hg] Dr. Chente Conn Work Phone: [facility] 12-05-2021 15:00-0400 Heart rate 86 /min Dr. Chente Conn Work Phone: [facility] 12-05-2021 15:00-0400 Inhaled oxygen flow rate 4 L/min Dr. Chente Conn Work Phone: [facility] 12-05-2021 15:00-0400 Respiratory rate 17 /min Dr. Chente Conn Work Phone: [facility] 12-05-2021 15:00-0400 SaO2% (BldA) [Mass fraction] 95 % Dr. Chente Conn Work Phone: [facility] 12-05-2021 15:00-0400 Systolic blood pressure 118 mm[Hg] Dr. Chente Conn Work Phone: [facility] 12-04-2021 11:44-0400 Body height 152.[address] Chente Conn Work Phone: [facility] Work Phone: 12-04-2021 11:44-0400 Body weight 74.[address] Chente Conn Work Phone: [facility] 11-30-2021 15:07-0400 Body mass index (BMI) [Ratio] 32.2 kg/m2 Dr. Chente Conn Work Phone: [facility] 11-30-2021 14:32-0400 Body temperature 97.8 [degF] Dr. Chente Conn Work Phone: [facility] Work Phone: 11-30-2021 14:32-0400 Diastolic blood pressure 69 mm[Hg] Dr. Chente Conn Work Phone: [facility] Work Phone: 11-30-2021 14:32-0400 Heart rate 76 /min Dr. Chente Conn Work Phone: [facility] Work Phone: 11-30-2021 14:32-0400 Respiratory rate 15 /min Dr. Chente Conn Work Phone: [facility] Work Phone: 11-30-2021 14:32-0400 SaO2% (BldA) [Mass fraction] 96 % Dr. Chente Conn Work Phone: [facility] Work Phone: 11-30-2021 14:32-0400 Systolic blood pressure 112 mm[Hg] Dr. Chente Conn Work Phone: [facility] Work Phone: 11-30-2021 12:19-0400 Inhaled oxygen flow rate 4 L/min Dr. Chente Conn Work Phone: [facility] Work Phone: 11-30-2021 11:05-0400 Body height 121.[address] Chente Conn Work Phone: [facility] Work Phone: 11-30-2021 11:05-0400 Body mass index (BMI) [Ratio] 53.1 kg/m2 Dr. Chente Conn Work Phone: [facility] Work Phone: 11-30-2021 11:05-0400 Body weight [address] Chente Conn Work Phone: [facility] Work Phone: 08-19-2021 14:26-0400 Body height 152.[address] Chente Conn Work Phone: [facility] Work Phone: 08-19-2021 14:17-0400 Body mass index (BMI) [Ratio] 30.8 kg/m2 Dr. Chente Conn Work Phone: [facility] Work Phone: 08-19-2021 14:17-0400 Body temperature 97 [degF] Dr. Chente Conn Work Phone: [facility] Work Phone: 08-19-2021 14:17-0400 Body weight 71.[address] Chente Conn Work Phone: [facility] Work Phone: 08-19-2021 14:17-0400 Diastolic blood pressure 68 mm[Hg] Dr. Chente Conn Work Phone: [facility] Work Phone: 08-19-2021 14:17-0400 Heart rate 57 /min Dr. Chente Conn Work Phone: [facility] Work Phone: 08-19-2021 14:17-0400 Respiratory rate 17 /min Dr. Chente Conn Work Phone: [facility] Work Phone: 08-19-2021 14:17-0400 SaO2% (BldA) [Mass fraction] 97 % Dr. Chente Conn Work Phone: [facility] Work Phone: 08-19-2021 14:17-0400 Systolic blood pressure 110 mm[Hg] Dr. Chente Conn Work Phone: [facility] Work Phone: 07-16-2021 09:03-0400 Body height 152.[address] Chente Conn Work Phone: [facility] Work Phone: 07-16-2021 09:03-0400 Body mass index (BMI) [Ratio] 30.7 kg/m2 Dr. Chente Conn Work Phone: [facility] Work Phone: 07-16-2021 09:03-0400 Body weight 71.[address] Chente Conn Work Phone: [facility] Work Phone: 07-16-2021 09:03-0400 Diastolic blood pressure 71 mm[Hg] Dr. Chente Conn Work Phone: [facility] Work Phone: 07-16-2021 09:03-0400 Heart rate 68 /min Dr. Chente Conn Work Phone: [facility] Work Phone: 07-16-2021 09:03-0400 Respiratory rate 18 /min Dr. Chente Conn Work Phone: [facility] Work Phone: 07-16-2021 09:03-0400 SaO2% (BldA) [Mass fraction] 99 % Dr. Chente Conn Work Phone: [facility] Work Phone: 07-16-2021 09:03-0400 Systolic blood pressure 102 mm[Hg] Dr. Chente Conn Work Phone: [facility] Work Phone: 05-19-2021 21:15-0400 Diastolic blood pressure 72 mm[Hg] Dr. Chente Conn Work Phone: [facility] Work Phone: 05-19-2021 21:15-0400 Heart rate 79 /min Dr. Chente Conn Work Phone: [facility] Work Phone: 05-19-2021 21:15-0400 Respiratory rate 15 /min Dr. Chente Cnon Work Phone: [facility] Work Phone: 05-19-2021 21:15-0400 SaO2% (BldA) [Mass fraction] 98 % Dr. Chente Conn Work Phone: [facility] Work Phone: 05-19-2021 21:15-0400 Systolic blood pressure 140 mm[Hg] Dr. Chente Conn Work Phone: [facility] Work Phone: 05-19-2021 18:07-0400 Body height 152.[address] Chente Conn Work Phone: [facility] Work Phone: 05-19-2021 18:07-0400 Body mass index (BMI) [Ratio] 31.8 kg/m2 Dr. Chente Conn Work Phone: [facility] Work Phone: 05-19-2021 18:07-0400 Body temperature 97.6 [degF] Dr. Chente Conn Work Phone: [facility] Work Phone: 05-19-2021 18:07-0400 Body weight [address] Chente Conn Work Phone: [facility] Work Phone: 04-15-2021 13:10-0500 Body temperature 97.2 [degF] Dr. Chente Conn Work Phone: [facility] Work Phone: 04-15-2021 13:10-0500 Body weight 72.[address] Chente Conn Work Phone: [facility] Work Phone: 04-15-2021 13:10-0500 Heart rate 85 /min Dr. Chente Conn Work Phone: [facility] Work Phone: 04-15-2021 13:10-0500 Respiratory rate 16 /min Dr. Chente Conn Work Phone: [facility] Work Phone: 04-15-2021 13:10-0500 SaO2% (BldA) [Mass fraction] 95 % Dr. Chente Conn Work Phone: [facility] Work Phone: 04-15-2021 12:10-0500 Body temperature 97.2 [degF] Dr. Chente Conn Work Phone: [facility] Work Phone: 04-15-2021 12:10-0500 Body weight 72.[address] Chente Conn Work Phone: [facility] Work Phone: 04-15-2021 12:10-0500 Heart rate 85 /min Dr. Chente Conn Work Phone: [facility] Work Phone: 04-15-2021 12:10-0500 Respiratory rate 16 /min Dr. Chente Conn Work Phone: [facility] Work Phone: 04-15-2021 12:10-0500 SaO2% (BldA) [Mass fraction] 95 % Dr. Chente Conn Work Phone: [facility] Work Phone: 03-24-2021 23:17-0500 Body mass index (BMI) [Ratio] 0 kg/m2 Dr. Chente Conn Work Phone: [facility] Work Phone: 02-21-2021 23:10-0500 Body mass index (BMI) [Ratio] 0 kg/m2 Dr. Chente Conn Work Phone: [facility] Work Phone: 01-21-2021 23:06-0500 Body mass index (BMI) [Ratio] 0 kg/m2 Dr. Chente Conn Work Phone: [facility] Work Phone: 08-28-2016 09:39-0400 BMI (Body Mass Index) 30.27 kg/m2 [facility] Work Phone: 08-28-2016 09:39-0400 BP Diastolic 62 mm[Hg] [facility] Work Phone: 08-28-2016 09:39-0400 BP Systolic 106 mm[Hg] [facility] Work Phone: 08-28-2016 09:39-0400 Height 152.4 cm [facility] Work Phone: 08-28-2016 09:39-0400 Pulse (Heart Rate) 78 /min [facility] Work Phone: 08-28-2016 09:39-0400 Respiratory Rate 12 /min Harumi De[facility]is [facility] Work Phone: 08-28-2016 09:39-0400 Weight 70.31 kg [facility]ennett DeFinis [facility] Work Phone: 06-15-2016 11:14-0400 BP Diastolic 87 mm[Hg] Chente Lara [employer] [facility] Work Phone: 06-15-2016 11:14-0400 BP Systolic 111 mm[Hg] Chente Lara [employer] [facility] Work Phone: 06-15-2016 11:14-0400 Pulse (Heart Rate) 60 /min Chente Lara [employer] [facility] Work Phone: 06-15-2016 11:14-0400 Respiratory Rate 16 /min Chente Lara [employer] [facility] Work Phone: 01-08-2016 09:55-0500 Body Temperature 97.2 [degF] Chente Marco [employer] [facility] Work Phone: Encounters Encounter Date Encounter Type Care Provider Facility Start: 09-03-2024 ambulatory Chente Conn Facilit y:[facility] Start: 09-01-2024 ambulatory Chente Conn Facilit y:[facility] Start: 08-22-2024 End: 08-22-[address] Chente Conn MD Work Phone: -Laboratory Specimen Start: 08-22-2024 End: 08-22-[address] Chente Conn MD -Laboratory Specimen Work Phone: Start: 08-22-2024 End: 08-22-2024 ambulatory Chente Conn Facility:[facility] Start: 07-26-2024 End: 07-26-2024 ambulatory Chente Conn MD [facility] Work Phone: Start: 07-26-2024 End: 07-26-[address] Roddy Quinones MD -[place]iology [place] Work Phone: Start: 07-25-2024 End: 08-21-[address] Chente Conn MD -Laboratory Specimen Work Phone: Start: 07-25-[address] Chente Conn MD -Laboratory Specimen Work Phone: Start: 07-25-2024 End: 08-21-[address] Chente Conn MD Work Phone: -Laboratory Specimen Start: 07-18-2024 End: 07-18-[address] Chente Conn MD Work Phone: [facility] Work Phone: Start: 07-18-2024 End: 07-18-[address] Matteo Posadas MD -Laboratory Specimen Work Phone: Start: 07-18-2024 End: 07-18-2024 ambulatory Chente Conn Facility:[facility] Start: 06-26-2024 End: 06-26-[address] Chente Conn MD Work Phone: [facility] Work Phone: Start: 06-26-2024 End: 06-26-[address] Chente Conn MD -Laboratory, Specimen Work Phone: Start: 06-26-2024 End: 06-26-2024 ambulatory Chente Conn Facility:[facility] Start: 06-15-2024 End: 06-15-[address] Matteo Posadas MD -[facility] Work Phone: Start: 06-15-2024 End: 06-15-2024 ambulatory Chente Conn Facility[facility] Start: 05-29-2024 End: 06-21-[address] Chente Conn MD -Laboratory, Specimen Work Phone: Start: 05-29-2024 End: 06-21-2024 ambulatory Chente Conn Facility:[facility] Start: 05-09-2024 End: 05-09-[address] Chente Conn MD Work Phone: [facility] Work Phone: Start: 05-09-2024 End: 05-09-2024 Patient encounter procedure Valarie Kee NP-C -Laboratory, Specimen Work Phone: Start: 05-09-2024 End: 05-09-2024 ambulatory Chente Conn Facility:[facility] Start: 05-01-2024 End: 05-22-[address] Chente Conn MD -Laboratory, Specimen Work Phone: Start: 05-01-[address] Chente Conn MD -Laboratory, Specimen Work Phone: Start: 05-01-2024 End: 05-22-[address] Chente Conn MD Work Phone: [facility] Work Phone: Start: 04-27-2024 ambulatory Chente Conn [facility] y:[facility] Start: 04-25-2024 End: 04-25-[address] Chente Conn MD -Outpatient Bone Densitometry Work Phone: Start: 04-25-2024 End: 04-25-2024 ambulatory Chente Conn Facility:[facility] Start: 04-04-2024 End: 04-04-2024 Patient encounter procedure SRINIVAS Dior [facility] Work Phone: Start: 04-04-2024 End: 04-04-2024 ambulatory Chente Conn Facility:[facility] Start: 04-03-2024 End: 04-21-[address] Chente Conn MD -Laboratory, Specimen Work Phone: Start: 04-03-2024 End: 04-21-2024 ambulatory Chente Conn Facility:[facility] Start: 03-16-2024 End: 03-16-[address] Roddy Quinones MD -Radiology, [facility] Work Phone: Start: 03-16-2024 End: 03-16-2024 ambulatory Chente Conn Facility:[facility] Start: 03-08-2024 End: 03-08-[address] Chente Conn MD -Laboratory, Specimen Work Phone: Start: 03-08-2024 End: 03-08-2024 ambulatory Chente Conn Facility:[facility] Start: 02-24-2024 End: 03-24-2024 ambulatory Chente Conn Facility:[facility] Start: 02-24-2024 End: 03-24-[address] Chente Conn MD -Laboratory, Specimen Work Phone: Start: 2024 ambulatory Chente Conn Facilit y:[facility] Start: 2024 Non-patient / Non-visit Dr. Torey Weber MD -[facility] Start: 2024 End: 2024 Emergency department patient visit Dr. Racquel Moss DO -Emergency Department Work Phone: Start: 01-27-2024 End: 02-22-[address] Chente Conn MD -Laboratory, Specimen Work Phone: Start: 01-27-2024 End: 02-22-2024 ambulatory Chente Conn Facility:[facility] Start: 01-14-2024 End: 01-14-2024 ambulatory Chente Conn Facility:[facility] Start: 01-04-2024 ambulatory Michael Posadas Facility:[facility] Start: 01-04-2024 End: 01-10-2024 Evaluation and management of inpatient Michael Posadas Facility:[facility] Start: 12-28-2023 End: 12-28-2023 ambulatory Chente Conn Facility:[facility] Start: 11-29-2023 End: 11-29-2023 ambulatory Chente Conn Facility:[facility] Start: 10-29-2023 End: 10-29-2023 ambulatory Chente Conn Facility:[facility] Start: 09-30-2023 End: 10-01-2023 ambulatory Chente Conn Facility:[facility] Start: 09-15-2023 End: 09-15-2023 ambulatory Stefan Bri Facility:[facility] Start: 09-10-2023 End: 09-10-2023 ambulatory Chente Conn Facility:[facility] Start: 09-06-2023 End: 09-06-2023 ambulatory Torey Huffman Facility:[facility] Start: 06-14-2023 End: 06-14-[address] Chente Conn Work Phone: [facility] Work Phone: Start: 06-14-2023 End: 06-14-[address] Chente Conn Work Phone: [facility]-Laboratory, Specimen Work Phone: Start: 05-17-2023 End: 05-17-[address] Chente Conn Work Phone: [facility] Work Phone: Start: 05-17-2023 End: 05-17-[address] [facility] Start: 04-19-2023 End: 04-19-[address] Chente Conn Work Phone: [facility] Work Phone: Start: 04-19-2023 End: 04-19-[address] [facility] Start: 04-13-2023 End: 04-13-2023 Emergency department patient visit Dr. Chente Conn Work Phone: [facility]-Emergency Department Work Phone: Start: 03-25-2023 Non-patient / Non-visit Dr. Chente Conn Work Phone: [facility] Work Phone: Start: 03-25-2023 Non-patient / Non-visit Dr. Chente Conn Work Phone: [facility] Start: 03-25-2023 Dr. Chente canales Work Phone: [facility] Start: 03-24-2023 Non-patient / Non-visit Dr. Chente Conn Work Phone: [facility] Work Phone: Start: 03-24-2023 Dr. Chente canales Work Phone: [facility] Work Phone: Start: 03-24-2023 Non-patient / Non-visit Dr. Chente Conn Work Phone: [facility] Start: 03-24-2023 Dr. Chente canales Work Phone: [facility] Start: 03-23-2023 Non-patient / Non-visit Dr. Chente Conn Work Phone: [facility] Work Phone: Start: 03-23-2023 End: 03-25-2023 Evaluation and management of inpatient Dr. Chente Conn Work Phone: [facility]Intensive Care [facility] Work Phone: Start: 03-23-2023 End: 03-25-2023 Dr. [facility] Start: 03-02-2023 End: 03-02-[address] Chente Conn Work Phone: [facility] Work Phone: Start: 03-02-2023 End: 03-02-2023 Dr. Chente Conn Work Phone: [facility] Work Phone: Start: 03-01-2023 End: 03-01-[address] Chente Conn Work Phone: [facility] Work Phone: Start: 03-01-2023 End: 03-01-[address] [facility] Start: 03-01-2023 End: 03-01-2023 Dr. Chen[facility] Work [facility] Start: 02-03-2023 End: 02-03-[address] Chente Conn Work Phone: [facility] Work Phone: Start: 02-03-2023 End: 02-03-[address] [facility] Start: 02-03-2023 End: 02-03-2023 Dr. Chen[facility] Conn [facility] Start: 01-16-2023 End: 01-16-2023 Emergency department patient visit Dr. Chente Conn Work Phone: [facility]-Emergency Department Work Phone: Start: 01-16-2023 End: 01-16-2023 Dr. Chente oCnn Work Phone: [facility]Emergency [facility] Work Phone: Start: 01-04-2023 End: 01-04-[address] Chente Conn Work Phone: [facility]-Laboratory, Specimen Work Phone: Start: 01-04-2023 End: 01-04-2023 Dr. Chente Conn Work Phone: [facility]-Laboratory, Specimen Work Phone: Start: 12-13-2022 Non-patient / Non-visit Dr. Chente Conn Work Phone: [facility] Work Phone: Start: 12-13-2022 Dr. Chente canales Work Phone: [facility] Work Phone: Start: 12-12-2022 Non-patient / Non-visit Dr. Chente Conn Work Phone: [facility] Start: 12-12-2022 Dr. Chente canales Work Phone: [facility] Start: 12-12-2022 Non-patient / Non-visit Dr. Chente Conn Work Phone: [facility] Work Phone: Start: 12-12-2022 Dr. Chente canales Work Phone: [facility] Work Phone: Start: 12-11-2022 Non-patient / Non-visit Dr. Chente Conn Work Phone: [facility] Work Phone: Start: 12-11-2022 Dr. Chente canales Work Phone: [facility] Work Phone: Start: 12-11-2022 Non-patient / Non-visit Dr. Chente Conn Work Phone: [facility] Start: 12-11-2022 Dr. Chente canales Work Phone: [facility] Start: 12-10-2022 End: 12-13-2022 Evaluation and management of inpatient [facility]. Chente Conn [facility] Start: 12-10-2022 End: 12-13-2022 Dr. Chen[facility] Conn [facility] Start: 12-07-2022 End: 12-07-[address] Chente Conn Work Phone: [facility] Work Phone: Start: 12-07-2022 End: 12-07-[address] [facility] Start: 12-07-2022 End: 12-07-2022 Dr. Chente Conn [facility] Start: 11-12-2022 End: 11-12-[address] Chen[facility] Conn [facility] Start: 11-05-2022 Non-patient / Non-visit Dr. Chente Conn Work Phone: [facility] Work Phone: Start: 11-04-2022 Non-patient / Non-visit Dr. Chente Conn Work Phone: [facility] Work Phone: Start: 11-03-2022 Non-patient / Non-visit Dr. Chente Conn Work Phone: [facility] Work Phone: Start: 11-02-2022 Non-patient / Non-visit Dr. Chente Conn Work Phone: [facility] Work Phone: Start: 11-01-2022 Non-patient / Non-visit Dr. Chente Conn Work Phone: [facility] Work Phone: Start: 10-31-2022 Non-patient / Non-visit Dr. Chente Conn [facility] Inpatient Physicians Work Phone: Start: 10-30-2022 Non-patient / Non-visit Dr. Chente Conn Work Phone: [facility] Work Phone: Start: 10-29-2022 Non-patient / Non-visit Dr. Chente Conn Work Phone: [facility] Work Phone: Start: 10-28-2022 Non-patient / Non-visit Dr. Chente Conn Work Phone: [facility] Work Phone: Start: 10-27-2022 Non-patient / Non-visit Dr. Chente Conn Work Phone: [facility] Work Phone: Start: 10-27-2022 End: 11-05-2022 Evaluation and management of inpatient Dr. Chente Conn Work Phone: [facility] Work Phone: Start: 10-14-2022 End: 10-14-[address] Chente Conn Work Phone: [facility] Work Phone: Start: 10-14-2022 End: 10-14-[address] [facility]: Start: 09-17-2022 End: 09-17-[address] Chente Conn Work Phone: [facility] Work Phone: Start: 09-14-2022 End: 09-14-[address] Chente Conn Work Phone: [facility] Work Phone: Start: 09-14-2022 End: 09-14-[address] [facility] Work [facility]: Start: 08-17-2022 End: 08-17-2022 ambulatory [facility] Work Phone: Start: 08-17-2022 End: 08-17-2022 [facility] Start: 07-22-2022 End: 07-22-2022 [facility]: Start: 06-30-2022 Telephone encounter [facility] Work Phone: Colorectal Surgery Comment on above: [facility] Start: 06-22-2022 End: 06-23-2022 Emergency department patient visit Dr. Chente Conn Work Phone: [facility] Work Phone: Start: 06-22-2022 End: 06-23-2022 Dr. Chente Conn Work Phone: [facility]Emergency Department Start: 06-15-2022 End: 06-16-2022 ambulatory CHENTE Emil [place] Facility:[facility] Start: 06-15-2022 End: 06-15-2022 Nursing evaluation of patient and report [facility] Work Phone: Colorectal Surgery Comment on above: Attention to colosto my (HCC) (Primary Dx) Start: 06-12-2022 End: 06-12-2022 Emergency department patient visit Dr. Chente Conn Work Phone: [facility] Start: 06-12-2022 End: 06-12-2022 Dr. Chente Conn Work Phone: [facility] Start: 06-01-2022 End: 06-21-2022 [facility] Start: 06-01-[address] Chen[facility] Conn [facility] Start: 06-01-2022 End: 06-21-2022 Dr. Chente Conn [facility] Start: 05-06-2022 End: 05-06-2022 ambulatory I MAURICIO LEAVITT Facility:[facility] Start: 05-06-2022 End: 05-06-2022 [facility] I Mauricio Leavitt MD Work Phone: Colorectal Surgery Comment on above: Functional disorder of stomach (Primary Dx) Start: 05-04-2022 End: 05-22-[address] Chente Conn Work Phone: [facility] Work Phone: Start: 05-04-2022 End: 05-22-[address] Chente Conn [facility] Start: 05-04-2022 End: 05-22-2022 Dr. Chente Conn [facility] Start: 04-14-2022 Telephone encounter I Mauricio rothman MD Work Phone: Colorectal Surgery Comment on above: Patient Update; Radha ent Question Patient Update Start: 04-01-2022 Non-patient / Non-visit Dr. Chente Conn Work Phone: [facility] Start: 04-01-2022 Dr. Chente canales Work Phone: [facility] Start: 03-31-2022 Non-patient / Non-visit Dr. Chente Conn Work Phone: [facility] Start: 03-31-2022 Dr. Chente canales Work Phone: [facility] Start: 03-31-2022 Non-patient / Non-visit Dr. Chente Conn Work Phone: [facility] Start: 03-31-2022 Dr. Chente canales Work Phone: [facility] Start: 03-30-2022 Non-patient / Non-visit Dr. Chente Conn Work Phone: [facility] Start: 03-30-2022 Dr. Chente canales Work Phone: [facility] Start: 03-30-2022 Non-patient / Non-visit Dr. Chente Conn Work Phone: [facility] Start: 03-30-2022 Dr. Chente canales Work Phone: [facility] Start: 03-29-2022 Non-patient / Non-visit Dr. Chente Conn Work Phone: [facility] Start: 03-29-2022 Dr. Chente canales Work Phone: [facility] Start: 03-29-2022 Non-patient / Non-visit Dr. Chente Conn Work Phone: [facility] Start: 03-29-2022 Dr. Chente canales Work Phone: [facility] Start: 03-29-2022 Non-patient / Non-visit Dr. Chente Conn Work Phone: [facility] Start: 03-29-2022 Dr. Chente canales Work Phone: [facility] Start: 03-28-2022 Non-patient / Non-visit Dr. Chente Conn Work Phone: [facility] Start: 03-28-2022 Dr. Chente canales Work Phone: [facility] Start: 03-27-2022 Non-patient / Non-visit Dr. Chente Conn Work Phone: [facility] Start: 03-27-2022 Dr. Chente canales Work Phone: [facility] Start: 03-26-2022 Non-patient / Non-visit Dr. Chente Conn Work Phone: [facility] Start: 03-26-2022 Dr. Chente canales Work Phone: [facility] Start: 03-25-2022 Non-patient / Non-visit Dr. Chente Conn Work Phone: [facility] Start: 03-25-2022 Dr. Chente canales Work Phone: [facility] Start: 03-25-2022 Non-patient / Non-visit Dr. Chente Conn Work Phone: [facility] Start: 03-25-2022 Dr. Chente canales Work Phone: [facility] Start: 03-24-2022 Non-patient / Non-visit Dr. Chente Conn Work Phone: [facility] Start: 03-24-2022 End: 04-01-2022 Evaluation and management of inpatient [facility]. Chente Conn [facility] Start: 03-24-2022 End: 04-01-2022 Dr. Chente Conn Work Phone: [facility] Start: 03-23-2022 End: 03-24-[address] Chente Conn Work Phone: [facility] Work Phone: Start: 03-23-2022 End: 03-24-[address] Chen[facility] Start: 03-23-[address] Chente Conn [facility] Start: 03-23-2022 End: 03-24-2022 Dr. Chente Conn [facility] Start: 02-24-2022 End: 02-24-2022 Emergency department patient visit Dr. Chente Conn Work Phone: [facility] Start: 02-24-2022 End: 02-24-2022 Dr. Chente Conn Work Phone: [facility] Start: 02-06-2022 End: 02-21-[address] Chente Conn Work Phone: [facility] Work Phone: Start: 02-06-2022 End: 02-21-[address] Chente Conn [facility] Start: 02-06-2022 End: 02-21-2022 Dr. Chente Conn [facility] Start: 01-06-2022 End: 01-06-[address] Chente Conn Work Phone: [facility] Start: 01-06-2022 End: 01-06-2022 Dr. Chente Conn Work Phone: [facility] Start: 01-05-2022 End: 01-21-[address] Chente Conn Work Phone: [facility] Work Phone: Start: 01-05-2022 End: 01-21-[address] Chente Conn Work Phone: [facility] Start: 01-05-2022 End: 01-21-2022 Dr. Chente Conn [facility] Start: 12-19-2021 End: 12-19-[address] Chen[facility] Conn [facility] Start: 12-19-2021 End: 12-19-2021 Dr. Chente Conn Work Phone: [facility] Start: 12-08-2021 End: 12-22-[address] Chente Conn Work Phone: [facility] Work Phone: Start: 12-08-2021 End: 12-22-[address] Chente Conn Work Phone: [facility] Start: 12-08-2021 End: 12-22-2021 Dr. Chente Conn Work Phone: [facility] Start: 12-05-2021 Non-patient / Non-visit Dr. Chente Conn Work Phone: [facility] Start: 12-05-2021 Dr. Chente canales Work Phone: [facility] Start: 12-04-2021 Non-patient / Non-visit Dr. Chente Conn Work Phone: [facility] Start: 12-04-2021 Dr. Chente canales Work Phone: [facility] Start: 12-03-2021 Non-patient / Non-visit Dr. Chetne Conn Work Phone: [facility] Start: 12-03-2021 [facility] can[facility] Start: 12-03-2021 Non-patient / Non-visit Dr. Chente Conn Work Phone: [facility] Start: 12-03-2021 Dr. Chente canales Work Phone: [facility] Start: 12-02-2021 Non-patient / Non-visit Dr. Chente Conn Work Phone: [facility] Start: 12-02-2021 Dr. Chente canales Work Phone: [facility] Start: 12-01-2021 Non-patient / Non-visit Dr. Chente Conn Work Phone: [facility] Start: 12-01-2021 Dr. Chente canales Work Phone: [facility] Start: 12-01-2021 Non-patient / Non-visit Dr. Chente Conn Work Phone: [facility] Start: 12-01-2021 Dr. Chente canales Work Phone: [facility] Start: 12-01-2021 End: 12-05-2021 Non-patient / Non-visit Dr. Chente Conn Work Phone: [facility] Start: 11-30-2021 End: 12-05-2021 Evaluation and management of inpatient Dr. Chente Conn [facility] Start: 11-30-2021 End: 12-05-2021 Dr. Chente Conn [facility] Start: 11-03-2021 End: 11-21-[address] Chente Conn [facility] Start: 09-11-2021 Non-patient / Non-visit Dr. Chente Conn Work Phone: [facility] Start: 09-11-2021 End: 09-11-[address] Chen[facility] Start: 09-10-2021 End: 09-21-[address] Chente Conn [facility] Start: 09-10-[address] Chente Conn [facility] Start: 08-19-2021 End: 08-19-[address] Chente Conn [facility] Start: 08-12-2021 End: 08-12-[address] Chente Conn [facility] Start: 08-08-2021 End: 08-08-[address] Chente Conn [facility] Start: 07-16-2021 End: 07-16-[address] Chente Conn Work Phone: [facility] Start: 07-11-2021 End: 07-22-[address] Chente Conn [facility] Start: 06-11-2021 End: 06-21-[address] Chente Conn [facility] Start: 05-30-2021 End: 05-30-[address] Chente Conn Work Phone: [facility]-Cat Scan, [facility] Start: 05-20-2021 End: 05-20-[address] Chente oCnn Work Phone: [facility] Start: 05-19-2021 End: 05-19-2021 Emergency department patient visit Dr. Chente Conn Work Phone: [facility] Start: 05-13-2021 End: 05-22-[address] Chente Conn [facility] Start: 04-28-2021 End: 04-28-[address] Chente Conn [facility] Start: 04-21-2021 End: 04-21-[address] Chente Conn [facility] Start: 04-15-2021 End: 04-15-[address] Chente Conn Work Phone: [facility] Start: 03-25-2021 End: 04-21-[address] Chente Conn [facility] Start: 02-24-2021 End: 03-24-[address] Chente Conn [facility] Start: 01-28-2021 End: 02-21-2021 [...] on above: Detection Limit = 3Performed at: [address] [id number] Director: Berry Gonzalez PhD, Phone: [phone] Start: 06-26-2024 Total iron binding capacity measurement [...] Start: 11-30-2021 Plain chest X-ray Dr. Chente oCnn Work Phone: Start: 05-30-2021 CT of soft [...] growth factor [Moles/volume] in Serum or Plasma [facility] Start: 06-26-2024 Prolactin measurement [facility] Start: 06-26-2024 Testosterone measurement [facility] Start: 04-13-2023 Venous catheter care management [facility] Start: 04-13-2023 End: 04-13-2023 [facility] Start: 04-13-2023 [facility] Start: 03-25-2023 Patient discharge [facility] Start: 03-24-2023 Referral to service [facility] Start: 03-24-2023 CBC W Auto Differential panel - Blood [facility] Start: 03-24-2023 [facility] Start: 03-23-2023 Following clinical pathway protocol [facility] Start: 03-23-2023 Assessment of risk of venous thromboembolism [facility] Start: 03-23-2023 Consultation [facility] Start: 03-23-2023 Consultation for treatment [facility] Start: 03-23-2023 Inhalation therapy procedure [facility] Start: 03-23-2023 Insertion of catheter into peripheral vein [facility] Start: 03-23-2023 Measuring intake and output [facility] Start: 03-23-2023 Oxygen therapy [facility] Start: 03-23-2023 Patient referral to dietitian [facility] Start: 03-23-2023 Providing care according to standard [facility] Start: 03-23-2023 Provision of activity privileges [facility] Start: 03-23-2023 Referral to service [facility] Start: 03-23-2023 Respiratory therapy [facility] Start: 03-23-2023 [facility] Start: 03-23-2023 Verification routine [facility] Start: 03-23-2023 Admission procedure [facility] Start: 03-23-2023 Bacteria identified in Blood by Culture Blood Culture [facility] Start: 03-23-2023 Bacteria identified in Urine by Culture [facility] Start: 03-23-2023 [facility] Start: 03-23-2023 End: 03-23-2023 Blood culture [facility] Start: 03-23-2023 End: 03-23-2023 [facility] Start: 01-16-2023 End: 01-16-2023 Blood culture [facility] Start: 01-16-2023 End: 01-16-2023 [facility] Start: 01-16-2023 Bacteria identified in Blood by Culture Blood Culture [facility] Start: 01-16-2023 Bacteria identified in Urine by Culture Urine Culture [facility] Start: 12-16-2022 Blood chemistry [facility] Start: 12-16-2022 Complete blood count [facility] Start: 12-15-2022 Blood chemistry [facility] Start: 12-15-2022 Complete blood count [facility] Start: 12-14-2022 Blood chemistry [facility] Start: 12-14-2022 Complete blood count [facility] Start: 12-13-2022 Patient discharge [facility] Start: 12-13-2022 Blood chemistry [facility] Start: 12-13-2022 Complete blood count [facility] Start: 12-12-2022 Blood chemistry [facility] Start: 12-12-2022 Complete blood count [facility] Start: 12-12-2022 [facility] Start: 12-11-2022 Referral to service [facility] Start: 12-10-2022 Ambulation without limitation [facility] Start: 12-10-2022 Assessment of risk of venous thromboembolism [facility] Start: 12-10-2022 Inhalation therapy procedure [facility] Start: 12-10-2022 Insertion of catheter into peripheral vein [facility] Start: 12-10-2022 Oxygen therapy [facility] Start: 12-10-2022 Providing care according to standard [facility] Start: 12-10-2022 Referral to service [facility] Start: 12-10-2022 [facility] Start: 12-10-2022 Following clinical pathway protocol [facility] Start: 12-10-2022 Verification routine [facility] Start: 12-10-2022 Admission procedure [facility] Start: 12-10-2022 Hospital admission, emergency, from emergency room, medical nature [facility] Start: 12-10-2022 [facility] Start: 12-10-2022 Patient referral to dietitian [facility] Start: 11-05-2022 Patient discharge [facility] Start: 11-04-2022 [facility] Start: 10-29-2022 [facility] Start: 10-28-2022 Respiratory therapy [facility] Start: 10-27-2022 End: 10-28-2022 [facility] Start: 10-27-2022 Care planning and problem solving actions [facility] Start: 10-27-2022 Respiratory therapy [facility] Start: 10-27-2022 Elevation of head of bed [facility] Start: 10-27-2022 Mouth care [facility] Start: 10-27-2022 Notification of physician [facility] Start: 10-27-2022 Tracheostomy care [facility] Start: 10-27-2022 Airway suction technique [facility] Start: 10-27-2022 Oxygen therapy [facility] Start: 10-27-2022 Assessment of risk of venous thromboembolism [facility] Start: 10-27-2022 Insertion of catheter into peripheral vein [facility] Start: 10-27-2022 Measuring intake and output [facility] Start: 10-27-2022 Physiotherapy of chest [facility] Start: 10-27-2022 Providing care according to standard [facility] Start: 10-27-2022 Vital signs measurements [facility] Start: 10-27-2022 Admission procedure [facility] Start: 10-27-2022 [facility] Start: 06-22-2022 End: 06-22-2022 Blood culture [facility] Start: 06-22-2022 End: 06-22-2022 [facility] Start: 06-12-2022 [facility] Start: 04-01-2022 Venous catheter care management [facility] Start: 04-01-2022 Patient discharge [facility] Start: 03-30-2022 Referral to ear, nose and throat service [facility] Start: 03-29-2022 Referral to general surgeon [facility] Start: 03-28-2022 [facility] Start: 03-27-2022 Care planning and problem solving actions [facility] Start: 03-27-2022 Referral to occupational therapist [facility] Start: 03-26-2022 Consultation [facility] Start: 03-25-2022 Referral to service [facility] Start: 03-25-2022 Airway suction technique [facility] Start: 03-25-2022 Oxygen therapy [facility] Start: 03-25-2022 End: 03-26-2022 [facility] Start: 03-25-2022 Care planning and problem solving actions [facility] Start: 03-25-2022 [facility] Start: 03-24-2022 [facility] Start: 03-24-2022 Following clinical pathway protocol [facility] Start: 03-24-2022 Assessment of risk of venous thromboembolism [facility] Start: 03-24-2022 Catheterization of vein [facility] Start: 03-24-2022 Consultation [facility] Start: 03-24-2022 Inhalation therapy procedure [facility] Start: 03-24-2022 Insertion of catheter into peripheral vein [facility] Start: 03-24-2022 Measuring intake and output [facility] Start: 03-24-2022 Patient referral to [facility] Start: 03-24-2022 Providing care according to standard [facility] Start: 03-24-2022 Referral to service [facility] Start: 03-24-2022 [facility] Start: 03-24-2022 Admission procedure [facility] Start: 03-24-2022 End: 03-24-2022 Blood culture [facility] Start: 03-24-2022 Patient referral to [facility] Start: 02-22-2022 DEPRESSION ASSESSMENT DEPRESSION ASSESSMENT [facility] Start: 12-05-2021 Patient discharge [facility] Start: 12-04-2021 [facility] Start: 12-03-2021 Referral to service [facility] Start: 12-03-2021 Consultation [facility] Start: 12-02-2021 Referral to general surgeon [facility] Start: 12-02-2021 Physiotherapy of chest [facility] Start: 12-01-[facility]21 [facility] Start: 11-30-2021 Following clinical pathway protocol [facility] Start: 11-30-2021 Transfusion of blood product [facility] Start: 11-30-2021 Assessment of risk of venous thromboembolism [facility] Start: 11-30-2021 Consultation [facility] Start: 11-30-2021 Insertion of catheter into peripheral vein [facility] Start: 11-30-2021 Measuring intake and output [facility] Start: 11-30-2021 Oxygen therapy [facility] Start: 11-30-2021 Providing care according to standard [facility] Start: 11-30-2021 Referral to occupational therapist [facility] Start: 11-30-2021 Referral to service [facility] Start: 11-30-2021 [facility] Start: 11-30-2021 Verification routine [facility] Work Phone: Start: 11-30-2021 Admission procedure [facility] Start: 11-30-2021 CT angiography of chest with contrast CTA Chest W/WO Contrast [facility] Work Phone: Start: 11-30-2021 CTA Chest vessels WO and W contrast IV [facility] Work Phone: Start: 11-30-2021 End: 12-01-2021 [facility] Start: 10-23-2021 Influenza vaccination INFLUENZA (#1) [facility] Start: 10-15-2018 Hemoglobin A1c/Hemoglobin.total in Blood HBA1C [facility] Start: 08-27-2017 End: 08-27-2017 Appointment [facility] Work Phone: Start: 08-28-2016 End: 08-28-2016 Appointment Appointment [facility] Work Phone: Start: 08-28-2016 End: 08-28-2016 *BMP *BMP [facility] Work Phone: Start: 08-28-2016 End: 08-28-2016 BNP *Brain Natriuretic Peptide BNP [facility] Work Phone: Start: 08-28-2016 End: 08-28-2016 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 [facility] Work Phone: Start: 08-28-2016 End: 08-28-2016 Follow Up Appt 1 year Follow Up Appt 1 year [facility] Work Phone: Start: 05-27-2016 End: 05-28-2016 aPTT *PTT-Partial Thromboplastin Time [facility] Work Phone: Start: 05-27-2016 End: 05-28-2016 CBC W Auto Differential panel - Blood *CBC [facility] Work Phone: Start: 05-27-2016 End: 05-28-2016 Coagulation factor induced.INR assay in platelet poor plasma *PT/INR [facility] Work Phone: Start: 01-08-2016 End: 01-08-2016 Bacterica wound culture *Culture and Sensitivity, wound [facility] Work Phone: Start: 04-12-2012 Hepatitis B screening URINE ALBUMIN:CREATININE RATIO [facility] Start: 04-08-2012 Hepatitis B surface antibody level LDL CHOLESTEROL [facility] Start: 04-08-2012 PNEUMOCOCCAL (2 - PCV) PNEUMOCOCCAL (2 - PCV) [facility] ic Start: 2001 Urine microalbumin profile DTAP,TDAP,TD (1 - Tdap) [facility] Start: 02-01-2000 ANNUAL PCP TEAM CHRONIC DISEASE VISIT ANNUAL PCP TEAM CHRONIC DISEASE VISIT [facility] Start: 02-01-2000 HIV SCREENING HIV SCREENING [facility] Start: 02-01-1992 3 comp foot exam completed DIABETIC FOOT EXAM [facility] Start: 02-01-1992 Hepatitis C antibody, confirmatory test DILATED RETINAL EXAM [facility] Start: 1982 COVID-19 VACCINE (#1) COVID-19 VACCINE (#1) [facility] Start: 1980 HEPATITIS B (1 of 3 - 3-dose series) HEPATITIS B (1 of 3 - 3-dose series) [facility] 24 hour urine calciu m output measurement [facility] Alanine aminotransfe rase [Enzymatic activity/volume] in Serum or Plasma [facility] Alanine aminotransfe rase [Enzymatic activity/volume] in Serum or Plasma [facility] Albumin [Mass/volume ] in Serum or Plasma [facility] Albumin [Mass/volume ] in Serum or Plasma [facility] Alkaline phosphatase [Enzymatic activity/volume] in Serum or Plasma [facility] Alkaline phosphatase [Enzymatic activity/volume] in Serum or Plasma [facility] Anion gap measurement [facility] Anion gap measurement [facility] Anion gap measurement [facility] Anion gap measurement [facility] Anion gap measurement [facility] Anion gap measurement [facility] Anion gap measurement [facility] Aspartate aminotrans ferase [Enzymatic activity/volume] in Serum or Plasma [facility] Aspartate aminotrans ferase [Enzymatic activity/volume] in Serum or Plasma [facility] Bacteria identified in Blood by Culture Blood Culture [facility] Bacteria identified in Sputum by Respiratory culture [facility] Work Phone: Bacteria identified in Sputum by Respiratory culture [facility] Bilirubin, total measurement [facility] Bilirubin, total measurement [facility] BUN/Creatinine ratio [facility] BUN/Creatinine ratio [facility] BUN/Creatinine ratio [facility] BUN/Creatinine ratio [facility] BUN/Creatinine ratio [facility] BUN/Creatinine ratio [facility] BUN/Creatinine ratio [facility] Calcium [Mass/volume ] in Serum or Plasma [facility] Calcium [Mass/volume ] in Serum or Plasma [facility] Calcium [Mass/volume ] in Serum or Plasma [facility] Calcium [Mass/volume ] in Serum or Plasma [facility] Calcium [Mass/volume ] in Serum or Plasma [facility] Calcium [Mass/volume ] in Serum or Plasma [facility] Calcium [Mass/volume ] in Serum or Plasma [facility] Carbon dioxide, tota l [Moles/volume] in Serum or Plasma [facility] Carbon dioxide, tota l [Moles/volume] in Serum or Plasma [facility] Carbon dioxide, tota l [Moles/volume] in Serum or Plasma [facility] Carbon dioxide, tota l [Moles/volume] in Serum or Plasma [facility] Carbon dioxide, tota l [Moles/volume] in Serum or Plasma [facility] Carbon dioxide, tota l [Moles/volume] in Serum or Plasma [facility] Carbon dioxide, tota l [Moles/volume] in Serum or Plasma [facility] Chloride [Moles/volu me] in Serum or Plasma [facility] Chloride [Moles/volu me] in Serum or Plasma [facility] Chloride [Moles/volu me] in Serum or Plasma [facility] Chloride [Moles/volu me] in Serum or Plasma [facility] Chloride [Moles/volu me] in Serum or Plasma [facility] Chloride [Moles/volu me] in Serum or Plasma [facility] Chloride [Moles/volu me] in Serum or Plasma [facility] Creatinine [Moles/vo lume] in Serum or Plasma [facility] Creatinine [Moles/vo lume] in Serum or Plasma [facility] Creatinine [Moles/vo lume] in Serum or Plasma [facility] Creatinine [Moles/vo lume] in Serum or Plasma [facility] Creatinine [Moles/vo lume] in Serum or Plasma [facility] Creatinine [Moles/vo lume] in Serum or Plasma [facility] Creatinine [Moles/vo lume] in Serum or Plasma [facility] Erythrocyte mean corpuscular volume determination [facility] Glucose [Mass/volume ] in Serum or Plasma [facility] Glucose [Mass/volume ] in Serum or Plasma [facility] Glucose [Mass/volume ] in Serum or Plasma [facility] Glucose [Mass/volume ] in Serum or Plasma [facility] Glucose [Mass/volume ] in Serum or Plasma [facility] Glucose [Mass/volume ] in Serum or Plasma [facility] Glucose [Mass/volume ] in Serum or Plasma [facility] Hematocrit [Volume Fraction] of Blood [facility] Hematocrit [Volume Fraction] of Blood [facility] Hematocrit [Volume Fraction] of Blood [facility] Hematocrit [Volume Fraction] of Blood [facility] Hematocrit [Volume Fraction] of Blood [facility] Hematocrit [Volume Fraction] of Blood [facility] Hematocrit [Volume Fraction] of Blood [facility] Hemoglobin [Mass/vol ume] in Blood [facility] Hemoglobin [Mass/vol ume] in Blood [facility] Hemoglobin [Mass/vol ume] in Blood [facility] Hemoglobin [Mass/vol ume] in Blood [facility] Hemoglobin [Mass/vol ume] in Blood [facility] Hemoglobin [Mass/vol ume] in Blood [facility] Hemoglobin [Mass/vol ume] in Blood [facility] Insulin-like growth factor [Moles/volume] in Serum or Plasma [facility] Lactic acid measurement [facility] Leukocytes [#/volume ] in Blood [facility] Leukocytes [#/volume ] in Blood [facility] Leukocytes [#/volume ] in Blood [facility] Leukocytes [#/volume ] in Blood [facility] Leukocytes [#/volume ] in Blood [facility] Leukocytes [#/volume ] in Blood [facility] Leukocytes [#/volume ] in Blood [facility] Mean corpuscular hem oglobin concentration determination [facility] Mean corpuscular hem oglobin concentration determination [facility] Mean corpuscular hem oglobin concentration determination [facility] Mean corpuscular hem oglobin concentration determination [facility] Mean corpuscular hem oglobin concentration determination [facility] Mean corpuscular hem oglobin concentration determination [facility] Mean corpuscular hem oglobin concentration determination [facility] Mean corpuscular hem oglobin determination [facility] Mean corpuscular hem oglobin determination [facility] Mean corpuscular hem oglobin determination [facility] Mean corpuscular hem oglobin determination [facility] Mean corpuscular hem oglobin determination [facility] Mean corpuscular hem oglobin determination [facility] Mean corpuscular hem oglobin determination [facility] Measurement of renal function [facility] Measurement of renal function [facility] Measurement of renal function [facility] Measurement of renal function [facility] Measurement of renal function [facility] Measurement of renal function [facility] Measurement of renal function [facility] Microscopic observat ion [Identifier] in Unspecified specimen by Gram stain Gram Stain [facility] Work Phone: Neutrophil count [facility] Neutrophil count [facility] Neutrophil percent differential count [facility] Neutrophil percent differential count [facility] Patient Education [facility] Work Phone: Patient referral [facility] Work Phone: Platelets [#/volume] in Blood [facility] Platelets [#/volume] in Blood [facility] Platelets [#/volume] in Blood [facility] Platelets [#/volume] in Blood [facility] Platelets [#/volume] in Blood [facility] Platelets [#/volume] in Blood [facility] Platelets [#/volume] in Blood [facility] Potassium [Moles/vol ume] in Serum or Plasma [facility] Potassium [Moles/vol ume] in Serum or Plasma [facility] Potassium [Moles/vol ume] in Serum or Plasma [facility] Potassium [Moles/vol ume] in Serum or Plasma [facility] Potassium [Moles/vol ume] in Serum or Plasma [facility] Potassium [Moles/vol ume] in Serum or Plasma [facility] Potassium [Moles/vol ume] in Serum or Plasma [facility] Prolactin measurement [facility] Red blood cell count [facility] Red blood cell count [facility] Red blood cell count [facility] Red blood cell count [facility] Red blood cell count [facility] Red blood cell count [facility] Red blood cell count [facility] Red cell distributio n width determination [facility] Red cell distributio n width determination [facility] Red cell distributio n width determination [facility] Red cell distributio n width determination [facility] Red cell distributio n width determination [facility] Red cell distributio n width determination [facility] Red cell distributio n width determination [facility] Respiratory Culture Respiratory Culture [facility] Work Phone: Respiratory pathogen s DNA and RNA 12b panel - Unspecified specimen by YAYO with probe detection [facility] Serum testosterone measurement [facility] Sodium [Moles/volume ] in Serum or Plasma [facility] Sodium [Moles/volume ] in Serum or Plasma [facility] Sodium [Moles/volume ] in Serum or Plasma [facility] Sodium [Moles/volume ] in Serum or Plasma [facility] Sodium [Moles/volume ] in Serum or Plasma [facility] Sodium [Moles/volume ] in Serum or Plasma [facility] Sodium [Moles/volume ] in Serum or Plasma [facility] Testosterone Free [Mass/volume] in Serum or Plasma [facility] Testosterone measurement [facility] Total protein measurement [facility] Total protein measurement [facility] Urea nitrogen [Mass/ volume] in Serum or Plasma [facility] Urea nitrogen [Mass/ volume] in Serum or Plasma [facility] Urea nitrogen [Mass/ volume] in Serum or Plasma [facility] Urea nitrogen [Mass/ volume] in Serum or Plasma [facility] Urea nitrogen [Mass/ volume] in Serum or Plasma [facility] Urea nitrogen [Mass/ volume] in Serum or Plasma [facility] Urea nitrogen [Mass/ volume] in Serum or Plasma [facility] Work Phone: [facility] Immunizations Immunization Date Immunization Notes Care Provider [facility] 01-09-2021 influenza, injectabl e, quadrivalent, preservative free Dr. Chente Conn Work Phone: [facility] 01-09-2021 influenza, seasonal, injectable Dr. Chente Conn Work Phone: [facility] 04-03-2020 Covid (Moderna) Dr. Chente cooper Work Phone: [facility] 02-06-[address] Chente Conn Work Phone: [facility] 12-11-[address] Chente Conn Work Phone: [facility] 01-20-[address] Chente Conn Work Phone: [facility] 02-19-2017 influenza, injectabl e, quadrivalent, preservative free Dr. Chente Conn Work Phone: [facility] 02-19-2017 influenza, seasonal, injectable Dr. Chente Conn Work Phone: [facility] 12-23-2015 influenza, injectabl e, quadrivalent, preservative free Dr. Chente Conn Work Phone: [facility] 12-23-2015 influenza, seasonal, injectable Dr. Chente Conn Work Phone: [facility] 11-08-2014 influenza, injectabl e, quadrivalent, preservative free LELIA Leavitt MD Work Phone: [facility] 01-15-2014 influenza, injectabl e, quadrivalent, preservative free Dr. Chente Conn Work Phone: [facility] 01-15-2014 influenza, seasonal, injectable Dr. Chente Conn Work Phone: [facility] 12-14-2012 influenza virus vacc ine, unspecified formulation LELIA Leavitt MD Work Phone: [facility] 11-22-[address] Darwin Conn Work Phone: [facility] Work Phone: 11-22-2012 pneumococcal vaccine , unspecified formulation Dr. Chente Conn Work Phone: [facility] 04-08-2011 influenza virus vacc ine, unspecified formulation LELIA Leavitt MD Work Phone: [facility] 04-08-2011 pneumococcal polysaccharide vaccine, 23 valent LELIA Leavitt MD Work Phone: [facility] Payers Date Payer Category Payer Unknown [id number] 2023 Self-pay [id number] 2020 Medicare [id number] 2020 Medicare MEDICARE MEDICAR E A AND B [id number] 2020-Present [phone] [place] [address] Medicare [id number] 2018 Medicaid MEDICAID [facility] MEDICAID [id number] 2018-Present [phone] [address] [place] [address] Medicaid [id number] 2018 Unknown SAVANNAH MORSE PPO [id number] 2018-Present [phone] [address] [place] [address] PPO [id number] 2016 Medicaid [id number] 2016 Unknown [id number] Unknown [id number] 2.16.840.1.884023.3.579.2.462 Unknown [id number] 2.16.840.1.415154.3.579.2.462 Unknown [id number] 2.16.840.1.045331.3.579.2.462 Unknown [id number] 2.16.840.1.154623.3.579.2.462 Unknown [id number] 2.16.840.1.888177.3.579.2.462 Unknown [id number] 2.16.840.1.775289.3.579.2.462 Unknown [id number] 2.16.840.1.175587.3.579.2.462 Unknown [id number] 2.16.840.1.785353.3.579.2.462 Unknown [id number] 2.16.840.1.920394.3.579.2.462 Unknown [id number] 2.16.840.1.131721.3.579.2.462 Unknown [id number] 2.16.840.1.748946.3.579.2.462 Unknown [id number] 2.16.840.1.366168.3.579.2.462 Unknown [id number] 2.16.840.1.091293.3.579.2.462 Unknown [id number] 2.16.840.1.587298.3.579.2.462 Unknown [id number] 2.16.840.1.780227.3.579.2.462 Unknown [id number] 2.16.840.1.044610.3.579.2.462 Unknown [id number] 2.16.840.1.875224.3.579.2.462 Unknown [id number] 2.16.840.1.552398.3.579.2.462 Unknown [id number] 2.16.840.1.654288.3.579.2.462 Unknown [id number] 2.16.840.1.514105.3.579.2.462 Unknown [id number] 2.16840.1.609468.3.579.2.462 Unknown [id number] 2.16.840.1.928861.3.579.2.462 Unknown [id number] 2.16840.1.994306.3.579.2.462 Unknown [id number] 2.16.840.1.923086.3.579.2.462 Unknown [id number] 2.16.840.1.226389.3.579.2.462 Unknown [id number] 2.16.840.1.202502.3.579.2.462 Unknown [id number] 2.16.840.1.438028.3.579.2.462 Unknown [id number] 2.16.840.1.662512.3.579.2.462 Unknown [id number] 2.16.840.1.106500.3.579.2.462 Unknown [id number] 2.16.840.1.010617.3.579.2.462 Unknown [id number] 2.16.840.1.622969.3.579.2.462 Unknown [id number] 2.16.840.1.811459.3.579.2.462 Unknown [id number] 2.16.840.1.393871.3.579.2.462 Unknown [id number] 2.16.840.1.132491.3.579.2.462 Unknown [id number] 2.16.840.1.399842.3.579.2.462 Unknown [id number] 2.16.840.1.337159.3.579.2.462 Unknown [id number] 2.16.840.1.306576.3.579.2.462 Unknown [id number] 2.16.840.1.015925.3.579.2.462 Unknown [id number] 2.16.840.1.260726.3.579.2.462 Unknown [id number] 2.16840.1.430493.3.579.2.462 Unknown [id number] 2.16840.1.963340.3.579.2.462 Unknown [id number] 2.16840.1.323624.3.579.2.462 Unknown [id number] 2.16840.1.372867.3.579.2.462 Social History Date Type Detail Facility Start: 05-19-2021 End: 01-16-2023 Tobacco smoking status NHIS Unknown if ever smoked [facility] Start: 04-25-2020 None [facility] Start: 04-25-2020 With Family [facility] Start: 07-08-2019 Non-smoker [facility] Start: 1980 Sex Assigned At Male [facility] Start: 2024 Tobacco smoking stat us IAIS Never smoked tobacco [facility] Start: 12-27-2019 Alcohol intake Not Asked [facility] Start: 1980 Sex Assigned At Not on file [facility] Start: 05-17-2024 End: 05-23-2024 Sex Male (finding) [facility] Medical Equipment Procedure Code Equipment Code Equipment Origin al Text Equipment Identifier Dates Catheter Ascenda 4fr .5mm Silicone 114cm 86cm Intrathecal 2 Piece Connector - [id number] Start: 04-05-2018 Pump Int Thcl 40 ml Snchr 2 Drg - [id number] Start: 03-08-2012 Pump Synchromed Ii 87.5in Titanium Silicone 26in Intrathecal [place] - [id number] Start: 04-05-2018 Tube Shiley 10.8 mm 6.4mm 6 76mm Tracheostomy Cuff Low Pressure Fenestrate - [id number] Start: 04-20-2018 Goals Date Patient Goal Desired Activity /State Functional Status Date Assessment Result Facility 03-25-2023 Functional status Bedrest [facility] Work Phone: 03-25-2023 Functional status Fair [facility] Work Phone: 12-13-2022 Functional status Bedrest [facility] Work Phone: 12-11-2022 Functional status Bedrest [facility] Work Phone: 11-05-2022 Functional status Chair [facility] Work Phone: 04-01-2022 Functional status Bedrest [facility] Work Phone: 03-31-2022 Functional status None [facility] Work Phone: 12-05-2021 Functional status With Assist of 2 [facility] Work Phone: 12-04-2021 Functional status Bedrest [facility] Work Phone: 12-03-2021 Functional status None [facility] Work Phone: Mental Status Date Assessment Result Facility 03-25-2023 Cognitive function Passive [facility] Work Phone: 03-24-2023 Cognitive function Voice/Name [facility] Work Phone: 12-13-2022 Cognitive function Voice/Name [facility] Work Phone: 12-13-2022 Cognitive function Dependent [facility] Work Phone: 12-11-2022 Cognitive function Voice/Name [facility] Work Phone: 11-05-2022 Cognitive function Voice/Name [facility] Work Phone: 06-12-2022 Cognitive function Awake;Alert;Appropriat e [facility] Work Phone: 04-01-2022 Cognitive function Voice/Name [facility] Work Phone: 03-31-2022 Cognitive function Demonstrates ability to follow instructions/comprehend [facility] Work Phone: 12-05-2021 Cognitive function Voice/Name [facility] Work Phone: 12-03-2021 Cognitive function Remote Impaired [facility] Work Phone: Clinical Notes 07-15-2018 to 07-27-2024 Note Date & Type Note Facility 07-27-2024 Radiology Diagnostic study note [facility] Imaging Services [address] [place] [address] Knee 1 or 2 Views MR#: [id number] Acct: [id number] Name: KRISS MICHAEL Rep #: [id number] : 1980 M 44 From: Manuel Bernabe MD PCP: Dr. Chente Conn MD Status: RE G CLI Study:Knee 1 or 2 Views Date of Exam: Exam# [id number] Ordering Dr: Gabrielle Quinones MD PROCEDURE: KNEE [...] due to the nonstandard projections. Reading Location: [id number] CC: Dr. Chente Conn MD; Dr. Roddy Quinones MD ~ [employer] Technician: Signed [facility] Work Phone: 06-15-2024 Evaluation note Diagnosis Onset Date Resolution Osteoporosis chronic June 15, 2024 1:47pm [facility] Work Phone: 1(350) 418-600402-11-2025 Evaluation note* Diagnosis Onset Date Resolution Status Admit Date Chronic respiratory failure chronic April 04, 2024 1:01pm [facility] Work Phone: 1(765) 673-541302-11-2025 Evaluation note* Diagnosis Onset Date Resolution Status Admit Date Chronic respiratory failure chronic April 04, 2024 1:01pm Osteoporosis chronic June 15, 2024 1:47pm [facility] Work Phone: 1(787) 400-608502-20-2024 Discharge summary Author Anthony Russell [facility] April 13, 2023 4:08pm Note Date/Time April 13, 2023 12:41pm [facility] Medical Records Department [address] [place] [address] Emergency Department Summary 04/13/23 MR#: [id number] Acct: [id number] Name: KRISS MICHAEL Rep #:[id number] : 1980 43 From: Anthony Russell MD [...] Prior similar symptoms: Yes Recent Illness[facility] Medical History Acute dyspnea Anemia in [...] 44.2 L Lymph % (Auto) 43.5 H Clay % (Auto) 7.8 Eos % (Auto) 3.7 [...] your Primary Care Provider. Call [facility] ([phone]) or report to the closest Emergency Room. Call 911 if necessary. 04/13/23 2866 <Electronically signed by Atnhony Russell MD> Cosigner Signature (if applicable): CC: Dr. Chente Conn MD ~ Signed [facility] Work Phone: 1(151) 844-490902-01-2024 Discharge summary Author [facility] March 25, 2023 10:43am Note Date/Time March 25, 2023 1 0:40am [facility] Medical Records Department [address] [place] [address] Instructions for Home/Discharge Instructions 03/25/23 1035 MR#: [id number] Acct: [id number] Name: KRISS MICHAEL Rep #:[id number] : 1980 43 From: Camacho Gonzalez DO [...] MD; Dr. Cari Cavazos MD ~ Signed [facility] Work Phone: 1(603) 537-113202-01-2024 Progress note Author Jacek Monsalve [facility] March 25, 2023 9:12am Note Date/Time March 25, 2023 7 :06am [facility] Medical Records Department [address] [place] [address] Progress Note - [employer] 03/25/2304 MR#: [id number] Acct: [id number] Name: KRISS MICHAEL Rep #:[id number] : 1980 43 From: Jacek Monsalve MD [...] neurologic status Charges/Coding Visit Charges Inpatient E&M: 79854 Subs Hosp L2 03/25/23 0912 <Electronically signed by Jacek Monsalve MD> Cosigner Signature (if applicable): CC: ~ Signed [facility] Work Phone: 1(855) 557-558001-31-2024 Progress note Author Camacho Gonzalez [facility] March 24, 2023 6:18pm Note Date/Time March 24, 2023 6 :15pm [facility] Medical Records Department [address] [place] [address] Progress Note - Hospitalist 03/24/23 1809 MR#: [id number] Acct: [id number] Name: KRISS MICHAEL Rep #:[id number] : 1980 43 From: Camacho Gonzalez DO [...] % (Auto) 62.2, Lymph % (Auto) 25.6, Clay % (Auto) 8.9, Eos % (Auto) 2.9, [...] 0.30, AST 14 L, ALT 25, Alkaline [id number] H, Total Protein 7.5, Albumin 3.1 L, [...] 35 minutes Charges/Coding Visit Charges Inpatient E&M: 76215 Subs Hosp L2 03/24/238 <Electronically signed by Camacho Gonzalez DO> Cosigner Signature (if applicable): CC: ~ Signed [facility] Work Phone: 1(163) 513-350401-31-2024 Consult note Author Jacek Monsalve [facility] March 24, 2023 2:48pm Note Date/Time March 24, 2023 8 :48am [facility] Medical Records Department [address] [place] [address] Consultation - [employer] 03/24/23805 MR#: [id number] Acct: [id number] Name: KRISS MICHAEL Rep #:[id number] : 1980 43 From: Jacek Monsalve MD [...] from the outpatient office, who presents to [facility] on 03/23/2023 secondary to recurrent episodes of [...] and actively tracking people around the room. [facility] Medical History Acute dyspnea Anemia in [...] (Auto) 70.6 H, Lymph % (Auto) 21.7, Clay % (Auto) 5.1, Eos % (Auto) 2.0, [...] % (Auto) 62.2, Lymph % (Auto) 25.6, Clay % (Auto) 8.9, Eos % (Auto) 2.9, [...] 0.30, AST 14 L, ALT 25, Alkaline [id number] H, Total Protein 7.5, Albumin 3.1 L, Globulin 4.4 H, Albumin/Globulin Ratio 0.7 L Micro: Microbiology 03/23/23 12:55 Mucosa - Nose Respiratory Panel (PCR) - Final Imaging Radiology Impression Chest X-Ray 03/23/23 13:22 IMPRESSION: Limited inspiratory effort due to patient''s condition. There has been essentially no change prior study. Electronically Signed: Matti Greer MD at 13:40 EST Reading Location ID and State: [facility] [place] , Service support , Charges/Coding Visit Charges Inpatient E&M: 73719 Init Hosp L2 03/24/23 1448 <Electronically signed [...] Huggins MD; Dr. Cari Cavazos MD~ Signed [facility] Work Phone: 1(175) 128-341701-30-2024 Discharge summary Author Siddharth De La Rosa [facility] March 23, 2023 5:09pm Note Date/Time March 23, 2023 1 2:22pm [facility] Medical Records Department [address] [place] [address] Emergency Department Summary 03/23/23 MR#: [id number] Acct: [id number] Name: KRISS MICHAEL Rep #:[id number] : 1980 43 From: Siddharth De La [...] has not been around any sick persons. [facility] <REYNA Scott - Last Filed: 03/23/23 16:27> [facility] Medical History Acute dyspnea Anemia in [...] Oxygen Delivery Method Mechanical Ventilator Mechanical Ventilator [facility] <Dominic Méndez [employer] PL[employer] TREATER-C - Last Filed: 03/23/23 16:27> [facility] Lab Data Labs: Laboratory Results - last 24 hr 03/23/23 03/23/23 12:35 13:23 WBC 13.0 H RBC 5.07 Hgb 13.1 Hct 42.2 MCV 83.2 MCH 25.8 L MCHC 31.0 L RDW Std Deviation 45.1 H RDW Coeff of Emilee 14.8 H Plt Count 229 MPV 10.1 Immature Gran % (Auto) 0.400 Neut % (Auto) 70.6 H Lymph % (Auto) 21.7 Clay % (Auto) 5.1 Eos % (Auto) 2.0 [...] Rosa MD - Last Filed: 03/23/23 17:09> [facility] Lab Data Labs: Laboratory Results - last 24 hr 03/23/23 03/23/23 12:35 13:23 WBC 13.0 H RBC 5.07 Hgb 13.1 Hct 42.2 MCV 83.2 MCH 25.8 L MCHC 31.0 L RDW Std Deviation 45.1 H RDW Coeff of Emilee 14.8 H Plt Count 229 MPV 10.1 Immature Gran % (Auto) 0.400 Neut % (Auto) 70.6 H Lymph % (Auto) 21.7 Clay % (Auto) 5.1 Eos % (Auto) 2.0 [...] min), Including time spent:, Discussing w/Patient &/or Family/Captain Room Service, Discussing w/Consultants, Arranging Admission or Transfer and Performing Direct Patient Care at Bedside Discharge Plan Dx/Rx/DC Orders Clinical Impression: Acute hypoxemic respiratory failure, Aspiration pneumonia, Cerebral palsy, Acidosis, lactic Disposition Disposition: Acute Care [facility] Discharge Date/Time: 03/23/23 16:46 What to do if you have Problems For any increased pain, shortness of breath, bleeding, nausea or vomiting, chest pain, or any unexpected problems, contact your Primary Care Provider. Call [facility] ([phone]) or report to the closest Emergency Room. Call 911 if necessary. 03/23/23 1708 <Electronically signed by Siddharth De La Rosa MD> Cosigner Signature (if applicable): 03/23/23 1627 <Electronically signed by Dominic HEBERTC> CC: Dr. Chente Conn MD ~ Signed [facility] Work Phone: [phone]) 688-337801-30-2024 History and physical note Author Lucia Dillard [facility] March 23, 2023 4:44pm Note Date/Time March 23, 2023 4 :37pm [facility] Medical Records Department [address] [place] [address] H&P Exam - Hospitalist 03/23/23 1633 MR#: [id number] Acct: [id number] Name: KRISS MICHAEL Rep #:[id number] : 1980 43 From: Lucia Dillard MD [...] seizure disorder, and GERD who presented to [facility] 03/23/2023 due to concern for aspiration and [...] is presently not in any acute distress. [facility] Medical History Acute dyspnea Anemia in [...] (Auto) 70.6 H, Lymph % (Auto) 21.7, Clay % (Auto) 5.1, Eos % (Auto) 2.0, [...] documentation, 56Minutes Charges/Coding Visit Charges Inpatient E&M: 91082 Init Hosp L2 03/23/23 1644 <Electronically signed by Lucia Dillard MD> Cosigner Signature (if applicable): CC: Dr. Chente Conn MD; Dr. Lucia Dillard MD~ Signed [facility] Work Phone: 1(263) 177-883611-25-2023 Discharge summary Author Dalton Lester [facility] January 16, 2023 10:58pm Note Date/Time January 16, 2023 7:42pm [facility] Medical Records Department [address] [place] [address] Emergency Department Summary 01/16/23 MR#: [id number] Acct: [id number] Name: KRISS MICHAEL Rep #:[id number] : 1980 42 From: Amena OAKES PCP: [...] surgeon did not want to operate again. [facility] <CHAMP Merlos - Last Filed: 01/16/23 20:59> [facility] Medical History (Updated 01/16/23 @ 20:59 [...] <CHAMP Merlos - Last Filed: 01/16/23 20:59> [facility] Narrative Medical decision making narrative: History gathered [...] 75.2 H Lymph % (Auto) 16.8 L Clay % (Auto) 6.5 Eos % (Auto) 1.1 [...] Clarity Clear Urine pH 6.0 Ur Specific [place] 1.025 Urine Protein 30 H Urine Glucose [...] workup. This patient was seen with a PA/SOLVENT PLANT TREATER Individually assessed they patient including history and physical. I have reviewed everything on the chart that is availableand agree with the documentation provided by the PA/SOLVENT PLANT TREATER including discussion about the assessment, treatment plan, [...] 75.2 H Lymph % (Auto) 16.8 L Clay % (Auto) 6.5 Eos % (Auto) 1.1 [...] Clarity Clear Urine pH 6.0 Ur Specific [place] 1.025 Urine Protein 30 H Urine Glucose [...] your Primary Care Provider. Call [facility] ([phone]) or report to the closest Emergency Room. Call 911 if necessary. 01/16/232058 <Electronically signed by Amena OAKES> Cosigner Signature (if applicable): 01/16/232257 <Electronically signed by Dalton Lester DO> CC: Dr. Chente Conn MD ~ Signed [facility] Work Phone: 1(979) 828-527010-22-2023 Discharge summary Author [facility] December 13, 2022 6:10pm Note Date/Time December 13, 2022 1 2:47pm [facility] Medical Records Department [address] [place] [address] Discharge Summary 12/13/22 1247 MR#: [id number] Acct: [id number] Name: KRISS MICHAEL Rep #:[id number] : 1980 42 From: Donte adam DO PCP: Dr. Chente Conn MD Status:AD M IN Location: [place] [id number]- [id number] Providers Date of Admission: 12/10/22 Date [...] history of seizure disorder who presented to [facility] ED on 12/10/2022 with several episodes of [...] Self Care Charges/Coding Visit Charges Inpatient E&M: 06866 Disch Hosp >30min 12/13/221809 <Electronically signed by Donte Abebe DO> Cosigner Signature (if applicable): CC: Dr. Donte Abebe DO; Dr. Chente Conn MD~ Signed [facility] Work Phone: 1([phone]) 125-641310-22-2023 Discharge summary Author Donte Abebe [facility] December 13, 2022 12:47pm Note Date/Time December 13, 2022 1 2:43pm [facility] Medical Records Department [address] [place] [address] Instructions for Home/Discharge Instructions 12/13/22 1242 MR#: [id number] Acct: [id number] Name: KRISS MICHAEL Rep #:[id number] : 1980 42 From: Donte adam DO [...] CC: Dr. Chente Conn MD ~ Signed [facility] Work Phone: 1(680) 577-739810-22-2023 Progress note Author Stefan Gregory [facility] December 13, 2022 11:49am Note Date/Time December 13, 2022 1 1:48am [facility] Medical Records Department [address] [place] [address] Progress Note - GI 12/13/22 1147 MR#: [id number] Acct: [id number] Name: KRISS MICHAEL Rep #:[id number] : 1980 42 From: Stefan Gregory DO PCP: Dr. Chente Conn MD Status:AD M IN Location: [place] [address] Subjective Subjective No issues with his tube [...] current management. Charges/Coding Visit Charges Inpatient E&M: 92155 Subs Hosp L3 12/13/22 1149 <Electronically signed by Stefan Gregory DO> Cosigner Signature (if applicable): CC: ~ Signed [facility] Work Phone: 1(272) 727-142910-21-2023 Progress note Author Stefan Gregory [facility] December 12, 2022 5:05pm Note Date/Time December 12, 2022 5 :02pm [facility] Medical Records Department [address] [place] [address] Progress Note - GI 12/12/22 1702 MR#: [id number] Acct: [id number] Name: KRISS MICHAEL Rep #:[id number] : 1980 42 From: Stefan Gregory DO PCP: Dr. Chente Conn MD Status:AD M IN Location: [place] [address] Subjective Subjective Patient underwent an upper endoscopy [...] seems stable. Charges/Coding Visit Charges Inpatient E&M: 34879 Subs Hosp L3 12/12/22 1705 <Electronically signed by Stefan Gregory DO> Cosigner Signature (if applicable): CC: ~ Signed [facility] Work Phone: 1(471) 386-501210-21-2023 Progress note Author Donte Abebe [facility] December 12, 2022 2:28pm Note Date/Time December 12, 2022 2 :27pm [facility] Medical Records Department [address] [place] [address] Progress Note - Hospitalist 12/12/22 1423 MR#: [id number] Acct: [id number] Name: KRISS MICHAEL Rep #:[id number] : 1980 42 From: Donte adam DO PCP: Dr. Chente Conn MD Status:AD M [facility] Reason for Visit Reason for Visit: [...] history of seizure disorder who presented to [facility] ED on 12/10/2022 with several episodes of [...] 35 minutes. Charges/Coding Visit Charges Inpatient E&M: 54828 Subs Hosp L2 12/12/22 1428 <Electronically signed by Donte Abebe DO> Cosigner Signature (if applicable): CC: ~ Signed [facility] Work Phone: 1(681) 718-798510-20-2023 Progress note Author Donte [facility] December 11, 2022 5:31pm Note Date/Time December 11, 2022 5 :31pm [facility] Medical Records Department [address] [place] [address] Progress Note - Hospitalist 12/11/22 1723 MR#: [id number] Acct: [id number] Name: KRISS MICHAEL Rep #:[id number] : 1980 42 From: Donte adam DO PCP: Dr. Chente Conn MD Status:AD M IN Location: [place] [id number]- [id number] Reason for Visit Reason for Visit: [...] history of seizure disorder who presented to [facility] ED on 12/10/2022 with several episodes of [...] 35 minutes. Charges/Coding Visit Charges Inpatient E&M: 55142 Subs Hosp L2 12/11/22 4423 <Electronically signed by Donte Abebe DO> Cosigner Signature (if applicable): CC: ~ Signed [facility] Work Phone: [phone]) 674-646710-20-2023 Procedure [facility] 12-11-2022 Procedure [facility]10-19-2023 History and physical note Author Donte [facility] December 10, 2022 5:27pm Note Date/Time December 10, 2022 1 2:21pm [facility] Medical Records Department [address] [place] [address] H&P Exam - Hospitalist 12/10/22 1217 MR#: [id number] Acct: [id number] Name: KRISS MICHAEL Rep #:[id number] : 1980 42 From: Donte adam DO PCP: Dr. Chente Conn MD Status:AD M IN Location: [id number]- 1 HPI - General General Date of Admission: 12/10/22 HPI Narrative KRISS MICHAEL, is a 42 M who presents [facility] Medical History (Updated 12/10/22 @ 15:05 [...] (Auto) 72.2 H, Lymph % (Auto) 19.2, Clay % (Auto) 5.9, Eos % (Auto) 2.1, [...] history of seizure disorder who presented to [facility] ED on 12/10/2022 with several episodes of [...] 55 minutes. Charges/Coding Visit Charges Inpatient E&M: 15010 Init Hosp L2 12/10/22 1727 <Electronically signed by Donte Abebe DO> Cosigner Signature (if applicable): CC: Dr. Donte Abebe DO; Dr. Chente Conn MD~ Signed [facility] Work Phone: [phone]) 585-495910-19-2023 Discharge summary Author Miky Rahman [facility] December 10, 2022 4:28pm Note Date/Time December 10, 2022 1 0:15am [facility] Medical Records Department [address] [place] [address] Emergency Department Summary 12/10/22 MR#: [id number] Acct: [id number] Name: KRISS MICHAEL Rep #:[id number] : 1980 42 From: Miky Chiang PCP: Dr. Chente Conn MD Status:AD M IN Location: [place] [address] HPI HPI - GI History of Present [...] the summer with PCP. Specialists are at [facility] with surgery. However mother states [...] gastroenterology, hospitalist This note was generated with Venturocket dictation software. It may contain incorrectwords, spelling, [...] (Auto) 72.2 H Lymph % (Auto) 19.2 Clay % (Auto) 5.9 Eos % (Auto) 2.1 [...] palsy, Hematemesis Disposition Disposition: Acute Care [facility] Discharge Date/Time: 12/10/22 14:37 What to do if you have Problems For any increased pain, shortness of breath, bleeding, nausea or vomiting, chestpain, or any unexpected problems, contact your Primary Care Provider. Call [facility] ([phone]) or report to the closest Emergency Room. Call 911 if necessary. 12/10/22 5745 <Electronically signed by Miky Chiang> Cosigner Signature (if applicable): CC: Dr. Chente Conn MD ~ Signed [facility] Work Phone: 1([phone]) 451-507409-14-2023 Discharge summary Author Vanessa Roberts [facility] November 05, 2022 11:44am Note Date/Time November 05, 2022 11:38am [facility] Medical Records Department [address] [place] [address] Discharge Summary 11/05/22 1136 MR#: [id number] Acct: [id number] Name: KRISS MICHAEL Rep #:[id number] : 1980 42 From: Vanessa Roberts DO [...] father had surgery for esophageal cancer at [facility]. Overall he is remained incredibly stable and [...] Self Care Charges/Coding Visit Charges Inpatient E&M: 29716 Disch Hosp 11/05/22 1143 <Electronically signed by Vanessa Roberts DO> Cosigner Signature (if applicable): CC: Dr. Chente Conn MD; Dr. Vanessa Roberts DO~ Signed [facility] Work Phone: [phone]) [phone] Progress note Author Vanessa Roberts [facility] November 04, 2022 2:07pm Note Date/Time November 04, 2022 2:07pm [facility] Medical Records Department [address] [facility] [place] [address] Progress Note - Hospitalist 11/04/22 1405 MR#: [id number] Acct: [id number] Name: KRISS MICHAEL Rep #:[id number] : 1980 42 From: Vanessa Roberts DO [...] home tomorrow. Charges/Coding Visit Charges Inpatient E&M: 66642 Subs Hosp L1 11/04/22 1405 <Electronically signed by Vanessa Roberts DO> Cosigner Signature (if applicable): CC: ~ Signed [facility] Work Phone: 1(339) 944-652309-12-2023 Progress note Author Vanessa Roberts [facility] November 03, 2022 1:40pm Note Date/Time November 03, 2022 1:40pm [facility] Medical Records Department [address] [place] [address] Progress Note - Hospitalist 11/03/22 1338 MR#: [id number] Acct: [id number] Name: KRISS MICAHEL Rep #:[id number] : 1980 42 From: Vanessa Roberts DO [...] from surgery Charges/Coding Visit Charges Inpatient E&M: 43657 Subs Hosp L1 11/03/22 1340 <Electronically signed by Vanessa Roberts DO> Cosigner Signature (if applicable): CC: ~ Signed [facility] Work Phone: 1([phone]) [phone] Progress note Author Vanessa Roberts [facility] November 02, 2022 5:28pm Note Date/Time November 02, 2022 8:02am [facility] Medical Records Department [address] [place] [address] Progress Note - Hospitalist 11/02/22 0755 MR#: [id number] Acct: [id number] Name: KRISS MICHAEL Rep #:[id number] : 1980 42 From: Vanessa Roberts DO [...] is having surgeryfor esophageal cancer chair at [facility]. Overall he is remained incredibly stable and [...] -Full code Charges/Coding Visit Charges Inpatient E&M: 67295 Subs Hosp L1 11/02/22 1728 <Electronically signed by Vanessa Roberts DO> Cosigner Signature (if applicable): CC: ~ Signed [facility] Work Phone: 1(231) 446-903309-10-2023 Progress note Author Michael Posadas [facility] November 01, 2022 9:04am Note Date/Time November 01, 2022 7:28am [facility] Medical Records Department [address] [place] [address] Progress Note - Hospitalist 11/01/22726 MR#: [id number] Acct: [id number] Name: KRISS MICHAEL Rep #:[id number] : 1980 42 From: Michael Posadas MD [...] documentation, 35Minutes Charges/Coding Visit Charges Inpatient E&M: 62198 Subs Hosp L2 11/01/22 0904 <Electronically signed by Michael Posadas MD> Cosigner Signature (if applicable): CC: ~ Signed [facility] Work Phone: 1([phone]) 388-225309-09-2023 Progress note Author Michael Posadas [facility] October 31, 2022 10:50am Note Date/Time October 31, 2022 7:35am [facility] Medical Records Department [address] [place] [address] Progress Note - Hospitalist 10/31/22 0732 MR#: [id number] Acct: [id number] Name: KRISS MICHAEL Rep #:[id number] : 1980 42 From: Michael Posadas MD [...] documentation, 35Minutes Charges/Coding Visit Charges Inpatient E&M: 73283 Subs Hosp L2 10/31/22 1050 <Electronically signed by Michael Posadas MD> Cosigner Signature (if applicable): CC: ~ Signed [facility] Work Phone: [phone]) 298-665609-08-2023 Progress note Author Cindy [facility] October 30, 2022 10:37am Note Date/Time October 30, 2022 10:37am [facility] Medical Records Department [address] [facility] [place] [address] Progress Note 10/30/22 1030 MR#: [id number] Acct: [id number] Name: KRISS MICHAEL Rep #:[id number] : 1980 42 From: Cindy Alexandre MD [...] respite care. Charges/Coding Visit Charges Inpatient E&M: 75300 Subs Hosp L2 10/30/22 1037 <Electronically signed by Cindy Alexandre MD> Cindy Alexandre MD Cosigner Signature (if applicable): CC: ~ Signed [facility] Work Phone: [phone]) [phone] Progress note Author Barry Young [facility] October 29, 2022 8:31am Note Date/Time October 29, 2022 8:31am [facility] Medical Records Department [address] [place] [address] Progress Note - Hospitalist 10/29/22827 MR#: [id number] Acct: [id number] Name: KRISS MICHAEL Rep #:[id number] : 1980 42 From: Barry stover MD [...] home instructions Charges/Coding Visit Charges Inpatient E&M: 63269 Subs Hosp L2 10/29/22 0831 <Electronically signed by Barry Young MD> Cosigner Signature (if applicable): CC: ~ Signed [facility] Work Phone: [phone]) [phone] History and physical note Author [facility] October 28, 2022 7:30pm Note Date/Time October 27, 2022 2:40pm [facility] Medical Records Department [address] [place] [address] History & Physical Exam 10/27/22 1432 MR#: [id number] Acct: [id number] Name: KRISS MICHAEL Rep #:[id number] : 1980 42 From: Cindy Alexandre MD [...] father have surgery for esophageal cancer at [facility]. [facility] Medical History (Updated 10/28/22 @ 08:39 [...] respite care. Charges/Coding Visit Charges Inpatient E&M: 20778 Init Hosp L2 10/28/221929 <Electronically signed by Cindy Alexandre MD> Cosigner Signature (if applicable): CC: Dr. Chente Conn MD; Dr. Cindy Alexandre MD~ Signed [facility] Work Phone: [phone]) [phone] Progress note Author Barry Young [facility] October 28, 2022 8:40am Note Date/Time October 28, 2022 8:40am [facility] Medical Records Department [address] [place] [address] Progress Note - Hospitalist 10/28/2235 MR#: [id number] Acct: [id number] Name: KRISS MICHAEL Rep #:[id number] : 1980 42 From: Barry stover MD [...] home instructions Charges/Coding Visit Charges Inpatient E&M: 80071 Subs Hosp L2 10/28/22 0840 <Electronically signed by Barry Young MD> Cosigner Signature (if applicable): CC: ~ Signed [facility] Work Phone: [phone]) 452-196605-09-2023 Miscellaneous Notes* Telephone Encounter - Chichi Fowler RN - 06/30/2022 4:42 PM EDT [facility] nursing returned patient's mother Yue message [...] e-mail. Mother will give order numbers to [facility]. Also recommended can apply stomahesive powder on mucosa. Advised maybe irritation from mucosa rubbing on pouch d/t prolapse vs the stool. Mom agreeable. Time spent: 30 minutes Chichi Fowler RN, BSN, CWOCN * Telephone Encounter - Amber Monreal RN - 06/30/2022 3:53 PM EDT [phone] Pt's mother called. She would like to discuss pt's stoma prolapse. [facility] De La Rosa [facility] June 22, 2022 8:24pm Note Date/Time June 22, 2022 6:47pm [facility] Medical Records Department [address] [place] [address] Emergency Department Summary 06/22/22 MR#: [id number] Acct: [id number] Name: KRISS MICHAEL Rep #:[id number] : 1980 42 From: Siddharth De La [...] not measuring this specifically obviously. No hematuria. [facility] Medical History Acute dyspnea Anemia in [...] % (Auto) 67.2 Lymph % (Auto) 21.5 Clay % (Auto) 8.5 Eos % (Auto) 2.4 [...] Color Urine Clarity Urine pH Ur Specific [place] Urine Protein Urine Glucose (UA) Urine Ketones Urine Occult Blood Urine Nitrite Urine Bilirubin Urine Urobilinogen Ur Leukocyte Esterase Urine RBC Urine WBC Ur Squamous Epith Cells Urine Bacteria Urine Mucus 06/22/22 06/22/22 19:10 19:20 WBC RBC Hgb Hct MCV MCH MCHC RDW Std Deviation RDW Coeff of Emilee Plt Count MPV Immature Gran % (Auto) Neut % (Auto) Lymph % (Auto) Clay % (Auto) Eos % (Auto) Baso % [...] Sl Cldy Urine pH 8.0 Ur Specific [place] 1.010 Urine Protein 30 H Urine Glucose [...] 19:23 EDT Reading Location ID and State: [address] [place] [address] Tel , Service support , Rhythm Strip [...] your Primary Care Provider. Call [facility] ([phone]) or report to the closest Emergency Room. Call 911 if necessary. 06/22/222023 <Electronically signed by Siddharth De La Rosa MD> Cosigner Signature (if applicable): CC: Dr. Chente Conn MD ~ Signed [facility] Work Phone: [phone]) 369-732804-24-2023 NoteHNO ID: [id number] Author: Cassie Cui RN Service: ? Author [...] Requested samples from [employer] for [employer] SenSura [place] MAXI Drainable pouch with soft outlet #01954. Order form provided. Also discussed use of [...] 1 hour 15 minutes Cassie BAL, RN, CWSelect [facility] History of Present illness Narrative* Cassie Cui [...] Uriah MAXI Drainable pouch with soft outlet #90825. Order form provided. Also discussed use of [...] effluent Current pouching system: Jazzmine Cohesive StomaWrap, [place] New Image flat flange with tape collar(cutting [...] RN - 06/15/2022 3:33 PM EDT The [address] [address] Patient: Kriss Michael Patient Address: [address] [place] [address] [place] [address] Preferred Gender: male Date of : 1980 Type of Stoma: End Descending Colostomy Diagnosis: Constipation K59.0 OSTOMY SUPPLY ORDER FORM One Piece Ostomy Pouch Item Type: [employer]oplast Post-op pouch with a window #41645 30 day use - 2 Boxes Coloplast SenSura Uriah MAXI Drainable Pouch with Soft Outlet Transparent Cut-to-fit 4 #32923 30 dayuse - 1 Box Tonia Hollihesive #7706 30 day use - 2 Boxes Procare Abdominal binder (62-74) #[id number] 30 day use - 2 Binders OR Procare Abdominal binder (45-62) #[id number] 30 day use - 2 Binders Refills: 11 Attending Physician: Dr. Leavitt For immediate authorization, please contact the physician s office. [facility] Nurse: VALERIANO Peters, CWOCN SIGNATURE: Cassie Cui RN PATIENT NAME: Kriss Michael DATE: June 15, 2022 TIME: 3:34 PM CONTACT #: [phone] documented in [facility]04-24-2023 NoteHNO ID: [id number] Author: Cassie Cui RN Service: ? Author Type: Registered Nurse Type: Progress Notes Filed: 06/30/2022 4:35 PM Note Text: The [address] [address] Patient: Kriss Michael Patient Address: [address] [place] [address] [place] [address] Preferred Gender: male Date of : 1980 Type of Stoma: End Descending Colostomy Diagnosis: Constipation K59.0 OSTOMY SUPPLY ORDER FORM Coloplast SenSura Uriah MAXI Drainable Pouch with Soft Outlet Transparent Cut-to-fit 4 #69224 30 day use - 1 Box Coloplast Bed Drainage Bag #70298 30 day use-2 bags Logging Superintendent #5185 30 day use 1 Xavi Luna #7700 30 day use - 2 Boxes Procare Abdominal binder (62-74) #[id number] 30 day use - 2 Binders OR Procare Abdominal binder (45-62) #[id number] 30 day use - 2 Binders Refills: 11 Attending Physician: Dr. Leavitt For immediate authorization, please contact the physician?s office. [facility] Nurse: VALERIANO Peters, CWOCN Addendum by: VALERIANO Virgen, CWOCN SIGNATURE: Cassie Cui RN PATIENT NAME: Kriss Michael DATE: June 15, 2022 TIME: 3:34 PM CONTACT #: [id number] Munoz [facility] June 12, 2022 12:31pm Note Date/Time June 12, 2022 10: 51am [facility] Medical Records Department [address] [place] [address] Emergency Department Summary 06/12/22 MR#: [id number] Acct: [id number] Name: KRISS MICHAEL Rep #:[id number] : 1980 42 From: Naveen Hidalgo PCP: [...] history of recent mission for aspiration pneumonia. [facility] Medical History Acute dyspnea Anemia in [...] % (Auto) 50.9 Lymph % (Auto) 35.9 Clay % (Auto) 8.1 Eos % (Auto) 3.3 [...] your Primary Care Provider. Call [facility] ([phone]) or report to the closest Emergency Room. Call 911 if necessary. 06/12/22 1231 <Electronically signed by Naveen Munoz DO> Cosigner Signature (if applicable): CC: Dr. Chente Conn MD ~ Signed [facility] Work Phone: 1(410) 892-970803-15-2023 NoteHNO ID: [id number] Author: Yola Leavitt MD Service: ? Author [...] 2014. He has not been seen at [facility] since 2019 when he came [...] visit. Either the patient or their legal manufacturing sales representative has been informed of the risks and benefits of -- and alternatives to -- treatment through a remote evaluation and consents to proceed with the evaluation remotely. Risk of morbidity, mortality and/or complications of treatment plan: moderate I spent a total of 36 minutes on the date of the service which included preparing to see the patient and [id number] patient care.[facility]03-15-[facility]23 History of Present illness Narrative* I Mauricio [...] 2014. He has not been seen at [facility] since 2019 when he came [...] included preparing to see the patient and [id number] patient care. [facility] Miscellaneous Notes* Telephone Encounter - Geetha [...] see what could be done about this,. [phone] Ashly (mom) documented in this [facility]-21-2023 Miscellaneous Notes* Telephone Encounter - Ebony Boateng - 04/14/2022 1:19 PM EST The patients mom stated that she can get into mychart. documented [facility]20[address] De La Torre [facility] March 24, 2022 8:03pm Note Date/Time March 24, 2022 5 :37pm [facility] Medical Records Department [address] [place] [address] Emergency Department Summary 03/24/22 MR#: [id number] Acct: [id number] Name: KRISS MICHAEL Rep #:[id number] : 1980 42 From: Dario De La [...] similar symptoms: Yes Recent Illness/Hospitalization: Yes [facility] Medical History Acute dyspnea Anemia in [...] 79.9 H Lymph % (Auto) 13.1 L Clay % (Auto) 5.3 Eos % (Auto) 1.3 [...] results, treatment for sepsis), Discussing w/Patient &/or Family/Captain Room Service, Discussing w/Consultants, Arranging Admission or Transfer and [...] MD [Primary Care Provider] - Disposition Disposition: [facility] What to do if you have Problems For any increased pain, shortness of breath, bleeding, nausea or vomiting, chestpain, or any unexpected problems, contact your Primary Care Provider. Call [facility] ([phone]) or report to the closest Emergency Room. Call 911 if necessary. 03/24/222002 <Electronically signed by Dario De La Torre MD> Cosigner Signature (if applicable): CC: Dr. Chente Conn MD ~ Signed [facility] Work Phone: [phone] 753-190805-24-2019 History of Past illness Narrative* Problem Noted [...] latter does not explain HGB drop. - [place] removed - BP stable - MAP goal [...] to goal rate - finishing reglan 10mg [id number] for 24 hours today - monitor ostomy [...] of this encounter (statuses as of 04/14/2022) [facility] History of Past illness Narrative* Problem [...] to goal rate - finishing reglan 10mg [id number] for 24 hours today - monitor ostomy [...] of this encounter (statuses as of 04/14/2022) [facility] History of Past illness Narrative* Problem [...] latter does not explain HGB drop. - [place] removed - BP stable - MAP goal [...] to goal rate - finishing reglan 10mg [id number] for 24 hours today - monitor ostomy [...] of this encounter (statuses as of 05/08/2022) [facility] History of Past illness Narrative* Problem [...] to goal rate - finishing reglan 10mg [id number] for 24 hours today - monitor ostomy [...] of this encounter (statuses as of 06/16/2022) [facility] History of Past illness Narrative* Problem [...] to goal rate - finishing reglan 10mg [id number] for 24 hours today - monitor ostomy [...] of this encounter (statuses as of 07/01/2022) [facility] Diagnosis Onset Date Resolution Status Chronic respiratory failure chronic [facility] Work Phone: evaluation note* Diagnosis Onset Date Resolution Status Chronic respiratory failure chronic Nonrheumatic mitral valve prolapse [facility] Work Phone: Evaluation note* Diagnosis Onset Date Resolution Status Nonrheumatic mitral valve prolapse [facility] Work Phone: Evaluation note* Diagnosis Onset Date Resolution Status Nonrheumatic mitral valve prolapse chronic Chronic respiratory failure [facility] Work Phone: Evaluation note* Diagnosis Onset Date Resolution Status Chronic respiratory failure chronic Acute dyspnea acute Cyanosis acute Hypoxia acute Cerebral palsy [facility] Work Phone: Evaluation note* Diagnosis Onset Date Resolution Status Chronic respiratory failure chronic Acute dyspnea acute Colostomy prolapse acute Cyanosis acute Hypoxia acute Pseudomonas pneumonia acute Cerebral palsy chronic Chronic respiratory failure [facility] Work Phone: Evaluation note* Diagnosis Onset Date Resolution Status Acute dyspnea acute Colostomy prolapse acute Cyanosis acute Hypoxia acute Pseudomonas pneumonia acute Cerebral palsy chronic Chronic respiratory failure chronic Pseudomonas pneumonia acute Chronic respiratory failure [facility] Work Phone: Evaluation note* Diagnosis Onset Date Resolution Status Cerebral palsy chronic Chronic respiratory failure chronic Acute dyspnea resolved Cyanosis resolved Hypoxia resolved Chronic respiratory failure chronic Chronic respiratory failure [facility] Work Phone: Evaluation note* Diagnosis Onset Date Resolution Status Cerebral palsy chronic Chronic respiratory failure chronic Acute dyspnea resolved Cyanosis resolved Hypoxia resolved Chronic respiratory failure chronic Chronic respiratory failure chronic Acidosis, lactic acute Aspiration into airway acute Hyperpyrexia acute Sepsis acute Sinus tachycardia acute Cerebral palsy chronic Chronic respiratory failure with hypoxia chronic [facility] Work Phone: Evaluation note* Diagnosis Functional disorder of stomach- Primary Unspecified functional disorder of stomach documented in this encounter [facility]* Diagnosis Onset Date Resolution Status Acidosis, lactic resolved Aspiration into airway resol alan Hyperpyrexia resolved Sepsis resolved Sinus tachycardia resolved [facility] Work Phone: Evaluation note* Diagnosis 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 Attention to colostomy documented in this encounter [facility] HospitalEvaluation noteNo assessment information availableWWood [facility] Hospital Work Phone: Evaluation note* Diagnosis Onset Date Resolution Status Chronic respiratory failure with hypoxia chronic [facility] Work Phone: Evaluation note* Diagnosis Onset Date Resolution Status Cerebral palsy acute GI bleed resolved Hematemesis acute [facility] Work Phone: Evaluation note* Diagnosis Onset Date Resolution Status GI bleed resolved Hematemesis resolved [facility] Work Phone: Evaluation note* Diagnosis Onset Date Resolution Status Cerebral palsy chronic GI bleed resolved Hematemesis resolved Cerebral palsy chronic Chronic respiratory failure chronic [facility] Work Phone: Evaluation note* Diagnosis Onset Date Resolution Status Cerebral palsy chronic GI bleed resolved Hematemesis resolved Cerebral palsy chronic Chronic respiratory failure chronic Acidosis, lactic acute Acute hypoxemic respiratory failure acute Aspiration pneumonia acute Cerebral palsy chronic [facility] Work Phone: Evaluation note* Diagnosis Onset Date Resolution Status Cerebral palsy chronic GI bleed resolved Hematemesis resolved Cerebral palsy chronic Chronic respiratory failure chronic Acidosis, lactic acute Acute hypoxemic respiratory failure acute Aspiration pneumonia acute Emesis, persistent acute Cerebral palsy chronic Chronic respiratory failure chronic [facility] Work Phone: Evaluation note* Diagnosis Onset Date Resolution Status Cerebral palsy chronic Chronic respiratory failure chronic Cerebral palsy chronic Chronic respiratory failure chronic Acidosis, lactic resolved Acute hypoxemic respiratory failure resolved Emesis, persistent resolved [facility] Work Phone: History and physical note Author Lucia Dillard [facility] March 23, 2023 4:44pm Note Date/Time March 23, 2023 4 :37pm [facility] Medical Records Department [address] [place] [id number] H&P Exam - Hospitalist 03/23/23 1633 MR#: [id number] Acct: [id number] Name: KRISS MICHAEL Rep #:[id number] : 1980 43 From: Lucia Dillard MD [...] seizure disorder, and GERD who presented to [facility] 03/23/2023 due to concern for aspiration and [...] is presently not in any acute distress. [facility] Medical History Acute dyspnea Anemia in [...] (Auto) 70.6 H, Lymph % (Auto) 21.7, Clay % (Auto) 5.1, Eos % (Auto) 2.0, [...] documentation, 56Minutes Charges/Coding Visit Charges Inpatient E&M: 07093 Init Hosp L2 03/23/23 1644 <Electronically signed by Lucia Dillard MD> Cosigner Signature (if applicable): CC: Dr. Chente Conn MD; Dr. Lucia Dillard MD~ Signed [facility] Work Phone: Hospital Discharge instructions Additional Instructions Please return if you notice any changes to the patient's oxygenation. Please follow with his primary care physicians as well as specialist for outpatient evaluation and further treatment.[facility] Work Phone: Hospital Discharge instructions Additional Instructions Continue your current medications as prescribed. Ativan as needed for anxiety. Follow-up with your doctor as needed or return if worse. His labs today and CAT scan were unremarkable. There is no signs of any blood clots. No signs of any pneumonia. [facility] Work Phone: Reason for referral (narrative)No reason for referral information availableWooProMedica [facility] Work Phone: Chief Complaint and Reason [...] No May 19, 2021 9:15pm Power of Mapping Pilot No May 19 9:15pm Advance Directive Response Recorded Date/ Time Advance Directives No March 12, 2016 10:51am Living Will No November 30 11:11am Power of Mapping Pilot No November 30 11:11am Advance Directive Response Recorded Date/ Time Advance Directives No March 12, 2016 10:51am Living Will No November 30 3:13pm Power of Mapping Pilot No November 30 3:13pm Advance Directive Response Recorded Date/ Time Advance Directives No March 12, 2016 9:51am Living Will No November 30 2:13pm Power of Mapping Pilot No November 30 2:13pm Advance Directive Response Recorded Date/ Time Name of Medical Power of Mapping Pilot PT MOM February 24, 2022 4:16pm Advance Directives No March 12, 2016 9:51am Living Will No February 24 4:16pm Power of Mapping Pilot Yes February 24, 2 023 4:16pm Advance Directive Response Recorded Date/ Time Name of Medical Power of Mapping Pilot PT MOM February 24, 2022 4:16pm Name of Medical Power of Mapping Pilot parents Miky Pelaez March 24, 2022 5:11pm Advance Directives No March 12, 2016 9:51am Living Will No March 24 5:11pm Power of Mapping Pilot Yes March 24, 2022 5:11pm Advance Directive Response Recorded Date/ Time Name of Medical Power of Mapping Pilot PT MOM February 24, 2022 4:16pm Name of Medical Power of Mapping Pilot parents Miky viera nd Benigno March 24, 2022 5:11pm Advance Directives No March 12, 2016 9:51am Living Will No March 24 9:35pm Power of Mapping Pilot No March 24, 2022 9:35pm Latest Code [...] Date/ Time Name of Medical Power of Mapping Pilot PT MOM February 24, 2022 5:16pm Name of Medical Power of Mapping Pilot parents Miky Pelaez March 24, 2022 6:11pm Advance Directives No March 12, 2016 10:51am Living Will No March 24 10:35pm Power of Mapping Pilot No March 24, 2022 10:35pm Advance Directive Response Recorded Date/ Time Name of Medical Power of Mapping Pilot PT MOM February 24, 2022 5:16pm Name of Medical Power of Mapping Pilot parents Miky Pelaez March 24, 2022 6:11pm Advance Directives No March 12, 2016 10:51am Living Will No June 12, 2022 10:42am Power of Mapping Pilot No June 12 10:42am Advance Directive Response Recorded Date/ Time Name of Medical Power of Mapping Pilot PT MOM February 24, 2022 5:16pm Name of Medical Power of Mapping Pilot parents Miky Pelaez March 24, 2022 6:11pm Name of Medical Power of Mapping Pilot MOTHER June 22, 2022 6:28pm Advance Directives No March 12, 2016 10:51am Living Will No June 22, 2022 6: 28pm Power of Mapping Pilot Yes June 22, 2022 6:28pm Advance Directive Response Recorded Date/ Time Name of Medical Power of Mapping Pilot MOTHER June 22, 2022 6:28pm Advance Directives No March 12, 2016 10:51am Living Will No June 22, 2022 6: 28pm Power of Mapping Pilot Yes June 22, 2022 6:28pm Advance Directive Response Recorded Date/ Time Name of Medical Power of Mapping Pilot Matteo & Benigno S prosty October 27, 2022 5:26pm Advance Directives No March 12, 2016 10:51am Living Will No October 27, 023 5:26pm Power of Mapping Pilot Yes October 27, 2022 5:26pm Advance Directive Response Recorded Date/ Time Name of Medical Power of Mapping Pilot Matteo & Benigno S prosty October 27, 2022 5:26pm Advance Directives No March 12, 2016 10:51am Living Will No December 10 9:56am Power of Mapping Pilot No December 10, 2022 9:56am Advance Directive Response Recorded Date/ Time Name of Medical Power of Mapping Pilot [employer]o [employer] Benigno S prosty October 27, 2022 5:26pm Advance Directives No March 12, 2016 10:51am Living Will No December 10 2:53pm Power of Mapping Pilot No December 10, 2022 2:53pm Advance Directive Response Recorded Date/ Time Advance Directives No March 12, 2016 9:51am Living Will No January 16, 023 7:25pm Power of Mapping Pilot No January 16, 2023 7:25pm Name of Medical Power of Mapping Pilot Matteo & Benigno S prosty October 27, 2022 4:26pm Advance Directive Response Recorded Date/ Time Name of Medical Power of Mapping Pilot Mother March 23, 2023 12:16pm Advance Directives No March 12, 2016 9:51am Living Will No Kiah 30th, 20 24 12:16pm Power of Mapping Pilot Yes March 23, 2023 12:16pm Advance Directive Response Recorded Date/ Time Name of Medical Power of Mapping Pilot Mother March 23, 2023 5:05pm Advance Directives No March 12, 2016 9:51am Living Will No March 23 5:05pm Power of Mapping Pilot Yes March 23, 2023 5:05pm Advance Directive Response Recorded Date/ Time Name of Medical Power of Mapping Pilot Mother March 23, 2023 5:05pm Name of Medical Power of Mapping Pilot parents April 13, 2023 12:23pm Advance Directives No March 12, 2016 9:51am Living Will Yes April 13 12:23pm Power of Mapping Pilot Yes April 13, 2023 12:23pm Advance Directive Response Recorded Date/ Time Name of Medical Power of Mapping Pilot Mother March 23, 2023 6:05pm Name of Medical Power of Mapping Pilot parents April 13, 2023 1:23pm Advance Directives No March 12, 2016 10:51am Living Will Yes April 13 1:23pm Power of Mapping Pilot Yes April 13, 2023 1:23pm Advance Directive Response Recorded Date/ Time Living Will Yes April 13 1:23pm Do you have a Healthcare Power of Mapping Pilot? Yes April 13, 2023 1:23pm Living Will No January 30 5:12pm Do you have a Healthcare Power of Mapping Pilot? No 2024 5:12pm Advance Directives No March 12, 2016 10:51am Advance Directive Response Recorded Date/ Time Living Will Yes April 13 1:23pm Do you have a Healthcare Power of Mapping Pilot? Yes April 13, 2023 1:23pm Advance Directives [...] Provider, Referr ing Provider Active Valarie Kee [employer], [employer] Attending Provider Active Team Status: Active Member [...] Tolentino MD Other Provider Active Valarie Kee [employer] T[employer], [employer] PL[employer] TREATER-C Other Provider Active Dr. Lucia Dillard MD [...] Tolentino MD Other Provider Active Valarie Kee [employer] PLANT TREATER, [employer] PLANT TREATER-C Other Provider Active Dr. Lucia Dillard MD [...] Tolentino MD Other Provider Active Valarie Kee [employer] PLANT TREATER, [employer] PLANT TREATER-C Other Provider Active Dr. Lucia Dillard MD [...] Tolentino MD Other Provider Active Valarie Kee [employer] PLANT TREATER, [employer] PLANT TREATER-C Other Provider Active Dr. Lucia Dillard MD [...] MD Other Provider Active Valarie Kee NP, [employer]-C Other Provider Active Dr. Lucia Dillard MD [...] MD Other Provider Active Valarie Kee NP, [employer]-C Other Provider Active Dr. Lucia Dillard MD [...] Tolentino MD Other Provider Active Valarie Kee [employer] PL[employer] TREATER, [employer] PLANT TREATER-C Other Provider Active Dr. Lucia Dillard MD [...] Tolentino MD Other Provider Active Valarie Kee [employer] PLANT TREATER, SOL[employer] PLANT TREATER-C Other Provider Active Dr. Fiona Echavarria MD [...] Tolentino MD Other Provider Active Valarie Kee [employer] PL[employer] TREATER, [employer] PL[employer] TREATER-C Other Provider Active Dr. Fiona Echavarria MD [...] Tolentino MD Other Provider Active Valarie Kee [employer] PL[employer] TREATER, [employer] PLANT TREATER-C Other Provider Active Team Status: Inactive Member [...] Tolentino MD Other Provider Active Valarie Kee [employer] T[employer]ATER, [employer] PLANT TREATER-C Other Provider Active Gallery Or [employer] Curator Relationship Specialty Start Date End Date Chente Perkins MD [address] [place] [address] PCP - General 06/03/00 [facility] 05/19/18 [employer] Curator Relationship Specialty Start Date End Date Chente Perkins MD [address] [place] [address] PCP - General 06/03/00 [facility] 05/19/18 [employer] Curator Relationship Specialty Start Date End Date Chente Perkins MD [address] [place] [address] PCP - General 06/03/00 [facility] 05/19/18 Team Status: Active [...] Tolentino MD Other Provider Active Valarie Kee [employer] PLANT TREATER, SOL[employer] PLANT TREATER-C Other Provider Active Dr. Lucia Dillard MD [...] Tolentino MD Other Provider Active Valarie Kee [employer] PLANT TREATER, SOLVENT PLANT TREATER-C Other Provider Active Dr. Lucia Dillard MD [...] Tolentino MD Other Provider Active Valarie Kee [employer] PLANT TREATER, SOLVENT PLANT TREATER-C Other Provider Active Dr. Lucia Dillard MD [...] Tolentino MD Other Provider Active Valarie Kee [employer]VENT PLANT TREATER, SOLVENT PLANT TREATER-C Other Provider Active Dr. Lucia Dillard MD [...] Tolentino MD Other Provider Active Valarie Kee [employer] PLANT TREATER, SOL[employer] PLANT TREATER-C Other Provider Active Dr. Lucia Dillard MD [...] Tolentino MD Other Provider Active Valarie Kee [employer] PLANT TREATER, SOL[employer] PLANT TREATER-C Other Provider Active Dr. Lucia Dillard MD [...] MD Other Provider Active Valarie Kee NP, [employer] TREATER-C Other Provider Active Dr. Lucia Dillard MD [...] MD Other Provider Active Valarie Kee NP, [employer] TREATER-C Other Provider Active Dr. Lucia Dillard MD [...] MD Other Provider Active Valarie Kee NP, [employer] TREATER-C Other Provider Active Dr. Roberto Hathaway MD [...] Tolentino MD Other Provider Active Valarie Kee [employer] TREATER, [employer] TREATER-C Other Provider Active Dr. Roberto Hathaway MD [...] MD Other Provider Active Valarie Kee NP, [employer] TREATER-C Other Provider Active Dr. Roberto Hathaway MD [...] Tolentino MD Other Provider Active Valarie Kee [employer] PL[employer] TREATER, [employer] PLANT TREATER-C Other Provider Active Dr. 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 Troey Huffman MD Attending Provider, Referring Prov ider [...] Luis Mohr MD Other Provider Active Dr. Viot Bright MD Other Provider Active Dr. Luther [...] Torey Huffman MD Primary Care Provider, Attending [facility] Active Team Status: Active Member Role [...] 2024 End: April 04, 2024 Amber Dior [employer]-C Attending Provider Active Start: April 04, 2024 [...] 2024 End: May 09, 2024 Valarie Kee [employer] PLANT TREATER, [employer] PLANT TREATER-C Attending Provider Active Start: May 09, 2024 End: May 09, 2024 Valarie Kee [employer] PLANT TREATER, [employer] PLANT TREATER-C Referring Provider Active Start: May 09, 2024 [...] 2024 End: May 09, 2024 Valarie Kee [employer] PLANT TREATER, [employer] PLANT TREATER-C Attending Provider Active Start: May 09, 2024 End: May 09, 2024 Valarie Kee [employer] PLANT TREATER, [employer] PLANT TREATER-C Referring Provider Active Start: May 09, 2024 [...] 09, 2024 End: May 09, 2024 Valarie eKe [employer] PLANT TREATER, [employer] PLANT TREATER-C Attending Provider Active Start: May 09, 2024 End: May 09, 2024 Valarie Kee [employer] PLANT TREATER, SOL[employer] PLANT TREATER-C Referring Provider Active Start: May 09, 2024 [...] or prosecute any alcohol or drug abuse patient.[facility] Hospital[facility] the event this information is protected by the Federal Confidentiality of Alcohol and Drug Abuse Patient Records regulations: The Federal rules restrict any use of the information to criminally investigate or prosecute any alcohol or drug abuse patient.[facility] Hospital[facility] the event this information is protected by the Federal Confidentiality of Alcohol and Drug Abuse Patient Records regulations: The Federal rules restrict any use of the information to criminally investigate or prosecute any alcohol or drug abuse patient.[facility] HospitalIn the event this information is protected by the Federal Confidentiality of Alcohol and Drug Abuse Patient Records regulations: The Federal rules restrict any use of the information to criminally investigate or prosecute any alcohol or drug abuse patient.[facility] HospitalIn the event this information is protected by the Federal Confidentiality of Alcohol and Drug Abuse Patient Records regulations: The Federal rules restrict any use of the information to criminally investigate or prosecute any alcohol or drug abuse patient.[facility] Reason for Visit (unrecogniz ed section and content) Reason Comments Patient Update Patient Question Reason Comments Patient Update Reason Comments Follow Up Reason Comments Stoma Consult (unrecognized sect ion and content) No Status Records FoundNo Status Records Found INFORMATION SOURCE (unrecogn ized section and content) DATE CREATED AUTHOR 07/02/2022 [facility] DATE CREATED AUTHOR 'S LAN LOVE 09/01/2024 [facility] FOR RECORDS PERTAINING TO PATIENTS WHO [...] BE BASED ON THE PRIMARY CLINICAL RECORDS. [facility] [employer] [facility]. provides no warranty or guarantee of the accuracy or completeness of information in this document.
--- OUTSIDE RECORDS SUMMARY | 2024-09-03 14:32 | XMS RPT_ITS | CCD ---
Author Organization [facility] Care Team Providers Care Supervisor Varnish Name Role Phone Aurora VARGAS, Luis Cooley Unavailable DeFinis, Harumi Y Unavailable Unavailable Coreen, RN, Bella Cooley Unavailable Unavailgalo Waite MD, Mauyr Anthony Unavailable Marco ESPINO, Chente Perez Unavailable DeFinis, Harumi Y Unavailable Unavailable Trenton, Harumi Y Unavailable Unavailable Dr. Chente Conn Primary Care Provider Dr. Chente Conn Referring Provider Vidhya EXECUTIVE RECRUITER, EXECUTIVE RECRUITER-C Valarie Attending Provider Dr. Maury Waite Attending [...] Other Provider Dr. Yovanny Moreira Attending Provider [phone] Yovanny Moreira Other Provider Dr. Armando Plaza Other Provider Dr. John Tolentino Other Provider Unavailab pio Kee EXECUTIVE RECRUITER, EXECUTIVE RECRUITER-C Valarie Other Provider Dr. Lucia Dillard Other Provider Dr. Fiona Echavarria Other Provider Dr. Lucia Dillard Attending Provider Dr. Luis Simon Other Provider Dr. Roberto Hathaway Other Provider Dr. Luis Simon Attending Provider Dr. Barry Young Attending Provider Dr. Barry Young Other Provider Dr. Chente Conn Primary Care Provider Dr. Cindy Alexandre Referring Provider Dr. Jacek oMnsalve Attending Provider Dr. Barry Young Referring Provider Dr. Chente Conn Referring Provider Vidhya EXECUTIVE RECRUITER, EXECUTIVE RECRUITER-C Valarie Attending Provider Dr. Chente Conn Primary Care Provider Dr. Maury Waite Attending Provider Dr. Cindy Alexandre Referring Provider MD Dayo Jo Emergency Provider Dr. Cindy Alexandre Admit Provider Dr. Cindy Alexandre Other Provider Dr. Jacek Monsalve Other Provider Dr. Yovanny Moreira Attending Provider Dr. Yovanny Moreira Other Provider Dr. Armando Plaza Other Provider [phone] Dr. John Tolentino Other Provider Unavailab pio Kee EXECUTIVE RECRUITER, EXECUTIVE RECRUITER-C Valarie Other Provider Dr. Lucia Dillard Other Provider Dr. Fiona Echavarria Other Provider Dr. Lucia Dillard Attending Provider Dr. Jacek Monsalve Attending Provider Dr. Luis Simon Other Provider Dr. Roberto Hathaway Other Provider Dr. Luis Simon Attending Provider [phone] Dr. Barry Young Referring Provider Dr. Barry Young Attending Provider Dr. Barry Young Other Provider Dr. Chente Conn Referring Provider Vidhya EXECUTIVE RECRUITER, EXECUTIVE RECRUITER-C Valarie Attending Provider Dr. Chente Conn Primary Care Provider Dr. Maury Waite Attending Provider Dr. Cindy Alexandre Referring Provider MD Dayo Jo Emergency Provider Dr. Cindy Alexandre Admit Provider Dr. Cindy Alexandre Other Provider Dr. Jacek Monsalve Other Provider Dr. Yovanny Moreira Attending Provider Dr. Yovanny Moreira Other Provider Dr. Armando Plaza Other Provider Dr. John Tolentino Other Provider Unavailab pio Kee EXECUTIVE RECRUITER, EXECUTIVE RECRUITER-C Valarie Other Provider Dr. Lucia Dillard Other Provider Dr. Fiona Echavarria Other Provider Dr. Lucia Dillard Attending Provider Dr. Jacek Monsalve Attending Provider Dr. Luis Simon Other Provider Dr. Roberto Hathaway Other Provider Dr. Luis Simon Attending Provider Dr. Barry Young Referring Provider Dr. Barry Young Attending Provider Dr. Barry Young Other Provider Dr. Chente Conn Referring Provider Vidhya EXECUTIVE RECRUITER, EXECUTIVE RECRUITER-C Valarie Attending Provider Dr. Dario De La Torre Emergency Provider [facility], Dr. Jaimes Admit Provider [place], Dr. Jaimes Attending Provider Chente Perkins MD Primary Care Provider Dr. Chente Conn Primary Care Provider Dr. Dario De La Torre Emergency Provider [facility], Dr. Jaimes Admit Provider Dr. Fiona Echavarria Attending Provider Dr. Fiona Echavarria Other Provider Dr. Jacek Monsalve Other Provider Dr. Yovanny Moreira Other Provider Dr. Armando Plzaa Other Provider Dr. John Tolentino Other Provider Unavailab pio Kee EXECUTIVE RECRUITER, EXECUTIVE RECRUITER-C Valarie Other Provider Dr. Lucia Dillard Attending Provider Dr. Jacek Monsalve Attending Provider Dr. Lucia Dillard Other Provider Dr. Roberto Hathaway Other Provider Bettie, Dr. Cindy Sharpe Referring Provider [phone] Dr. Luis Simon Other Provider [phone] Dr. Luis Simon Attending Provider [phone] Dr. Yovanny Moreira Attending Provider Bettie, Dr. [...] John Tolentino Other Provider Unavailab pio Kee EXECUTIVE RECRUITER, EXECUTIVE RECRUITER-C Valarie Other Provider Dr. Lucia Dillard Attending Provider Dr. Jacek Monsalve Attending Provider Dr. Lucia Dillard Other Provider Dr. Roberto Hathaway Other Provider Bettie, Dr. Cindy Sharpe Referring Provider [phone] Dr. Luis Simon Other Provider [phone] Provider Dr. Donte Abebe Attending Provider Dr. Donet Abebe Other Provider Dr. Chente Conn Primary [...] Dr. Camacho Gonzalez Other Provider [phone] Barry Young Other Provider Dr. Cindy Alexandre Other Provider Dr. Vanessa Roberts Attending Provider Dr. Vanessa Roberts Other Provider Dr. Michael Posadas Other Provider Unavailable Dr. Chente Conn Referring Provider Vidhya EXECUTIVE RECRUITER, EXECUTIVE RECRUITER-C Valarie Attending Provider Dr. Chente Conn Primary Care Provider Dr. Chente Conn Primary Care Provider Dr. Stefan Gregory Attending Provider Dr. Donte Abebe Referring Provider Dr. Miky Rahman Emergency Provider Dr. Donte Abebe Admit Provider Dr. Donte Abebe Attending Provider Dr. Donte Abebe Other Provider Dr. Chente Conn Referring Provider Vidhya EXECUTIVE RECRUITER, EXECUTIVE RECRUITER-C Valarie Attending Provider Dr. Siddharth De La [...] Dr. Chente Conn Primary Care Provider [phone] Dr. Siddharth De La Rosa Emergency Provider [...] Provider Dr. Camacho Gonzalez Other Provider Dr. Cmaacho Gonzalez Attending Provider Dr. Chente Conn Primary Care Provider Dr. Chente Conn Referring Provider Vidhya EXECUTIVE RECRUITER, EXECUTIVE RECRUITER-C Valarie Attending Provider [phone] Dr. Siddharth [...] Chente Conn MD Primary Care Provider [phone] Senia VARGAS, Dr. Chente De La Paz [...] Chente Conn MD Referring Provider Unavailable Ovi EXECUTIVE RECRUITER-C, Amber Cooley Attending Provider Vidhya EXECUTIVE RECRUITER-CValarie Attending Provider Vidhya EXECUTIVE RECRUITER-CValarie Referring Provider Dr. Chente Conn MD Primary Care Provider Dr. Chente Conn MD Attending Provider Dr. Chente Conn MD Referring Provider King SAM, Dr. Felipe Attending Provider King SAM, Dr. Felipe Other Provider Dr. Chente Conn MD Primary Care Provider Dr. Chente Conn MD Attending Provider Senia VARGAS, Dr. Chente De La Paz Referring Provider King SAM, Dr. Felipe Referring Provider [phone] Senia VARGAS, Dr. Chente De La Paz [...] Unavailable Chente Conn Primary Care Unavailable Vidhya EXECUTIVE RECRUITER, Valarie Attending Unavailable Vidhya EXECUTIVE RECRUITER, Valarie Referring Unavailable Chente Conn Primary Care [...] Referring Unavailable Amber Dior Attending Unavailable Vidhya EXECUTIVE RECRUITER, Valarie Attending Unavailable Nathanael, Torey Primary Care [...] acetaminophen / codeine drug allergy 07-04-19 15 [facility] Work Phone: (8 sources) cisapride drug allergy 07-04-19 15 [facility] Work Phone: (8 sources) codeine drug allergy 07-04-19 15 [facility] Work Phone: (20 sources) Dust; Translations: [DUST] allergy to substance 07-04-19 15 Other [facility] Work Phone: (8 sources) metroNIDAZOLE drug allergy 07-04-19 15 [facility] Work Phone: (14 sources) morphine; Translations: [ASTRAMORPH] allergy to substance 07-04-19 15 hallucinations [facility] Work Phone: (20 sources) morphine; Translations: [MORPHINE] drug allergy 06-23-19 Other: See Comments [facility] Work Phone: (14 sources) vancomycin; Translations: [VANCOMYCIN HCL] drug allergy 01-08-20 16 [facility] Work Phone: (20 sources) Cisapride; Translations: [cisapride monohydrate] Drug Allergy 05-20-19 [facility] (20 sources) Codeine; Translations: [CODEINE] Drug Allergy 06-23-19 Other: See Comments [facility] (20 sources) metroNIDAZOLE Drug Allergy 05-20-19 22 [facility] (20 sources) house dust allergenic extract Drug Allergy 12-01-19 NEEDS FOLLOW-UP [facility] (6 sources) Cisapride; Translations: [PROPULSID] Drug Allergy 02-08-20 12 [facility] (6 sources) metroNIDAZOLE; Translations: [METRONIDAZOLE HCL] Drug Allergy 05-09-19 15 [facility] Work Phone: (20 sources) Chlorhexidine Drug Allergy 06-23-19 23 [facility] (1 source) Chlorhexidine Drug Allergy 06-16-19 25 [facility] (1 source) Codeine Drug Allergy 06-16-19 25 [facility] (1 source) house dust allergenic extract Drug Allergy 06-16-19 25 [facility] (1 source) metroNIDAZOLE Drug Allergy 06-16-19 25 [facility] Medications Current Medications Medication Drug [...] October 23, 2022 11:00pm Start: 10-24-2022 [facility] xide-Simeth Active 5 ML PO 0000,0600,1200,1800 October 24, 2022 12:00am aluminum hydroxide 40 mg/ml / magnesium hydroxide 40 mg/ml / simethicone 4 mg/ml oral suspension (20 sources) Start: 10-24-2022 [facility] xide-Simeth 200-200-20 mg/5 mL suspension Active 5 mL PO 0000,0600,1200,1800 as needed for ANTACID October 24, 2022 12:00am Start: 10-24-2022 [facility] xide-Simeth Active 5 ML PO 0000,0600,1200,1800 October 24, 2022 12:00am Start: 01-11-2021 [facility] xide-Simeth Active 20 ML feeding tube 4 [...] 73 4.1 mcg intrath daily BACLOFEN SOLN [id number] Luann Elliott calcium carbonate 250 mg/ml oral [...] Cough Assist A ctive 1 NMA .Route .[facility] December 25, 2018 2:40pm assist in clearing secretions Inspiratory and Expiratory times of 20-40 seconds with a 1-2 second pause. Start: 12-25-2018 Cough Assist A ctive 1 NMA .Route .[facility] December 25, 2018 2:40pm Inspiratory and Expiratory times of 20-40 seconds with a 1-2 second pause. Start: 12-25-2018 Cough Assist A ctive 1 DOSE .Route .[facility] December 25, 2018 1:40pm Inspiratory and Expiratory times of 20-40 seconds with a 1-2 second pause. Start: 12-25-2018 Cough Assist A ctive 1 DOSE .Route .[facility] December 25, 2018 2:40pm Inspiratory and [...] 20-40 seconds with a 1-2 second pause. [id number] 0.3 ml EPINEPHrine 1 mg/ml auto-injector (6 [...] by mouth three times daily METOCLOPRAMIDE HCL [id number] Maury Waiet MD Start: 12-20-2015 End: 09-16-2018 Metoclopramide Hcl [...] 3 September 30, 2023 11:26am ASTHMA nystatin [id number] unt/ml oral suspension (7 sources) Polyene Antifungal [...] TABS 60 mg. GT twice daily PHENOBARBITAL [id number] Luann Elliott Comment on above: Inject intravenously [...] tablet by mouth twice daily AMOXICILLIN-POT CLAVULANATE [id number] Maury Waite MD Start: 07-21-2016 End: 07-29-2016 [...] GTUBE every 8 hours; docusate / sennosides, snf (14 sources) Start: 08-28-2016 SENNA-DOCUSATE SODIUM TABS as direceted as needed SENNOSIDES-DOCUSATE SODIUM TABS [id number] Maury Waite MD SENNA-DOCUSATE S ODIUM TABS SENNOSIDES-DOCUSATE SODIUM TABS [id number] Rosa Taylor LPN doxazosin 2 mg oral [...] 4; 1 cap by mouth daily LACTOBACILLUS [id number] Luann Elliott lactobacillus acidophilus [id number] unt oral capsule (20 sources) Start: 09-20-19 [...] mouth daily as needed MAGNESIUM HYDROXIDE SUSP [id number] Maury Waite MD Start: 12-20-2015 End: 12-27-2018 [...] ml by mouth daily MAGNESIUM HYDROXIDE SUSP [id number] Luann Elliott Comment on above: Take by mouth as nee ded. NUTRITIONAL SUPPLEMENTS (8 sources) take 237 mL by mouth four times daily JEVITY 1 BENNY LIQD 237 ml by mouth 4 times daily NUTRITIONAL SUPPLEMENTS [id number] Luann Elliott ofloxacin 3 mg/ml ophthalmic solution (8 sources) Quinolone Antimicrobial Start: 01-10-20 16 End: 01-17-20 16 OFLOXACIN 0.3 % SOLN qid OFLOXACIN [id number] Trice Brenner MD ondansetron 4 mg disintegrating [...] three times a day prn ONDANSETRON HCL [id number] Rosa Taylor CLAIMS SORTER pantoprazole 40 mg delayed release oral tablet [...] pneumonia weekly bmp and cbc. Fax to [phone] routine midline care plecanatide 3 mg oral tablet (20 sources) Start: 04-25-2020 End: 04-05-2024 Plecanatide 3 mg tablet Discontinued 3 mg GT 0830 November 27, 2020 3:23pm April 05, 2024 5:06pm BOWELS polyethylene glycol 3350 36319 mg powder for oral solution (20 sources) [...] 17g m q d POLYETHYLENE GLYCOL 3350 [id number] Rosa Taylor CLAIMS SORTER potassium chloride 1.33 meq/ml oral solution (20 [...] 2015 12:00am December 27, 2018 10:53am sennosides, snf 1.76 mg/ml oral solution (5 sources) Start: [...] GT daily as needed DOCUSATE SODIUM LIQD [id number] Maury Waite MD DOCUSATE SODIUM LIQD 200 mg GT daily DOCUSATE SODIUM LIQD [id number] Luann Elliott simethicone 66.7 mg/ml oral suspension [...] 24, 2023 12:00am September 30, 2023 12:00am [place] 9th, 2024 12:04am vancomycin 125 mg oral [...] THEREAFTER End: 01-08-2016 VANCOMYCIN+SYRSPEND SF PH4 S SKILLED NURSING 125mg q 6 hrs x 10 days VANCOMYCIN HCL SUSP [id number] Rosa Taylor CLAIMS SORTER Problems Active Problems Problem Classification Problem Date [...] (5 sources) Drug therapy finding; Translations: [Other detention (current) drug therapy] Onset: 5 02-17-2021 Episodic [...] Auto (Unsp spec) [#/Vol] 1.17 10*3/uL 0.83-4.51 [facility] Absolute neutrophil countOrd ered By: Chente Conn on 08-22-2024 Neutrophils (Bld) [#/Vol] 2.1 10*3/uL 2.0-7.7 [facility] Anion gap in Serum or Plasma Ordered By: Chente Conn on 08-22-2024 Anion gap [Moles/Vol] 9 mmol/L 5-15 [facility] Automated lymphocyte count a s percentage of total leukocytesOrdered By: Chente Conn on 08-22-2024 Lymphocytes/100 WBC Auto (Unsp spec) 31.3 % 19-41 [facility] BUN/creatinine ratioOrdered By: Chente Conn on 08-22-2024 Urea nitrogen/Creatinine [Mass ratio] 46.4 mg/mg High 10-20 [facility] Basophil percentageOrdered B y: Chente Conn on 08-22-2024 Basophils/100 WBC (Bld) 0.0 % 0-1 [facility] Carbon dioxide, total [Moles /volume] in Central venous bloodOrdered By: Chente Conn on 08-22-2024 CO2 [Moles/Vol] 28.9 mmol/L 21.0-32.0 [facility] Chloride assayOrdered By: Areli Conn on 08-22-2024 Chloride [Moles/Vol] 99 mmol/L 98-108 [facility] Eosinophil percentageOrdered By: Chente Conn on 08-22-2024 Eosinophils/100 WBC (Bld) 4.5 % 0-5 [facility] Erythrocyte distribution wid th ratioOrdered By: Chente Conn on 08-22-2024 Erythrocyte distribution width (RBC) [Ratio] 16.3 % High 11.6-14.6 [facility] Erythrocyte distribution wid th standard deviationOrdered By: Chente Conn on 08-22-2024 Erythrocyte distribution width (RBC) [Ratio] 49.5 fl High 35.1-43.9 [facility] Glomerular filtration rate ( GFR) estimation/1.73 sq m using serum, plasma, or whole bOrdered By: Chente Conn on 08-22-2024 GFR/1.73 sq M.predicted among non-blacks MDRD (S/P/Bld) [Vol rate/Area] 167 mL/min/{1.73_m2} >60 [facility] Comment on above: mL/min/1.73m2 CKD-EP I Creatinine Equation (2020) Hematocrit Auto (Bld) [Volum e fraction]Ordered By: Chente Conn on 08-22-2024 Hematocrit (Bld) [Volume fraction] 31.8 % Low 40-54 [facility] Hemoglobin measurementOrdere d By: Chente Conn on 08-22-2024 Hemoglobin (Bld) [Mass/Vol] 10.1 g/dL Low 13.0-16.5 [facility] Immature granulocytes/100 WB C Auto (Bld)Ordered By: Chente Conn on 08-22-2024 Immature granulocytes/100 WBC (Bld) 0.500 % 0.0-0.9 [facility] Comment on above: IG% - Immature Granu locytes (promyelocytes, myelocytes and metamyelocytes) > 1% indicates that a LEFT SHIFT is Present. MCV (mean corpuscular volume ) determinationOrdered By: Chente Conn on 08-22-2024 MCV (RBC) [Entitic vol] 85.3 fL 80-94 [facility] Mean corpuscular hemoglobin (MCH) determinationOrdered By: Chente Conn on 08-22-2024 MCH (RBC) [Entitic mass] 27.1 pg 27.0-32.0 [facility] Mean corpuscular hemoglobin concentration (MCHC) determinationOrdered By: Chente Conn on 08-22-2024 MCHC (RBC) [Mass/Vol] 31.8 g/dL Low 32-36 [facility] Mean platelet volume determi nationOrdered By: Chente Conn on 08-22-2024 Platelet mean volume (Bld) [Entitic vol] 10.8 fL 6.2-12.0 [facility] Monocyte percentageOrdered B y: Chente Conn on 08-22-2024 Monocytes/100 WBC (Bld) 8.8 % 0-10 [facility] Neutrophil percentageOrdered By: Chente Conn on 08-22-2024 Neutrophils/100 WBC (Bld) 54.9 % 47-70 [facility] Nucleated red blood cell per centageOrdered By: Chente Conn on 08-22-2024 Nucleated RBC/100 WBC (Bld) [Ratio] 0 % 0-5 [facility] Platelet countOrdered By: Areli Conn on 08-22-2024 Platelets (Bld) [#/Vol] 118 10*3/uL Low 150-450 [facility] Potassium measurement (mass/ volume)Ordered By: Chente Conn on 08-22-2024 Potassium (Unsp spec) [Mass/Vol] 4.1 mmol/L 3.3-5.1 [facility] RBC Auto (Bld) [#/Vol]Ordere d By: Chente Conn on 08-22-2024 RBC (Bld) [#/Vol] 3.73 10*6/uL Low 4.6-6.2 [facility] Serum creatinine measurement (mass/volume)Ordered By: Chente Conn on 08-22-2024 Creatinine [Mass/Vol] 0.22 mg/dL Low 0.70-1.20 [facility] Serum glucose measurement (m ass/volume)Ordered By: Chente Conn on 08-22-2024 Glucose [Mass/Vol] 90 mg/dL 70-99 [facility] Serum or plasma calcium jacinta urement (mass/volume)Ordered By: Chente Conn on 08-22-2024 Calcium [Mass/Vol] 8.7 mg/dL 7.6-11.0 [facility] Serum or plasma urea nitroge n measurement (mass/volume)Ordered By: Chente Conn on 08-22-2024 Urea nitrogen [Mass/Vol] 10 mg/dL 4-19 [facility] Sodium levelOrdered By: Chente Conn on 08-22-2024 Sodium [Moles/Vol] 137 mmol/L 133-145 [facility] White blood cell (WBC) count Ordered By: Chente Conn on 08-22-2024 WBC (Bld) [#/Vol] 3.7 10*3/uL Low 4.4-11.0 [facility] Laboratory - Chemistry and C hemistry - challengeOrdered By: Matteo Posadas on 07-27-2024 Testosterone [Mass/Vol] 15.60 ng/dL Low 300-890 [facility] Absolute lymphocyte countOrd ered By: Chente Conn on 07-25-2024 Lymphocytes Auto (Unsp spec) [#/Vol] 2.03 10*3/uL 0.83-4.51 [facility] Absolute neutrophil countOrd ered By: Chente Conn on 07-25-2024 Neutrophils (Bld) [#/Vol] 3.4 10*3/uL 2.0-7.7 [facility] Anion gap in Serum or Plasma Ordered By: Chente Conn on 07-25-2024 Anion gap [Moles/Vol] 14 mmol/L 5-15 [facility] Automated lymphocyte count a s percentage of total leukocytesOrdered By: Chente Conn on 07-25-2024 Lymphocytes/100 WBC Auto (Unsp spec) 31.8 % 19-41 [facility] BUN/creatinine ratioOrdered By: Chente Conn on 07-25-2024 Urea nitrogen/Creatinine [Mass ratio] 24.1 mg/mg High 10-20 [facility] Basophil percentageOrdered B y: Chente Conn on 07-25-2024 Basophils/100 WBC (Bld) 0.2 % 0-1 [facility] Carbon dioxide, total [Moles /volume] in Central venous bloodOrdered By: Chente Conn on 07-25-2024 CO2 [Moles/Vol] 25.0 mmol/L 21.0-32.0 [facility] Chloride assayOrdered By: Areli Conn on 07-25-2024 Chloride [Moles/Vol] 99 mmol/L 98-108 [facility] Eosinophil percentageOrdered By: Chente Conn on 07-25-2024 Eosinophils/100 WBC (Bld) 3.6 % 0-5 [facility] Erythrocyte distribution wid th ratioOrdered By: Chente Conn on 07-25-2024 Erythrocyte distribution width (RBC) [Ratio] 15.6 % High 11.6-14.6 [facility] Erythrocyte distribution wid th standard deviationOrdered By: Chente Conn on 07-25-2024 Erythrocyte distribution width (RBC) [Ratio] 47.2 fl High 35.1-43.9 [facility] Glomerular filtration rate ( GFR) estimation/1.73 sq m using serum, plasma, or whole bOrdered By: Chente Conn on 07-25-2024 GFR/1.73 sq M.predicted among non-blacks MDRD (S/P/Bld) [Vol rate/Area] 148 mL/min/{1.73_m2} >60 [facility] Comment on above: mL/min/1.73m2 CKD-EP I Creatinine Equation (2020) Hematocrit Auto (Bld) [Volum e fraction]Ordered By: Chente Conn on 07-25-2024 Hematocrit (Bld) [Volume fraction] 30.1 % Low 40-54 [facility] Hemoglobin measurementOrdere d By: Chente Conn on 07-25-2024 Hemoglobin (Bld) [Mass/Vol] 9.8 g/dL Low 13.0-16.5 [facility] Immature granulocytes/100 WB C Auto (Bld)Ordered By: Chente Conn on 07-25-2024 Immature granulocytes/100 WBC (Bld) 0.300 % 0.0-0.9 [facility] Comment on above: IG% - Immature Granu locytes (promyelocytes, myelocytes and metamyelocytes) > 1% indicates that a LEFT SHIFT is Present. MCV (mean corpuscular volume ) determinationOrdered By: Chente Conn on 07-25-2024 MCV (RBC) [Entitic vol] 84.1 fL 80-94 [facility] Mean corpuscular hemoglobin (MCH) determinationOrdered By: Chente Conn on 07-25-2024 MCH (RBC) [Entitic mass] 27.4 pg 27.0-32.0 [facility] Mean corpuscular hemoglobin concentration (MCHC) determinationOrdered By: Chente Conn on 07-25-2024 MCHC (RBC) [Mass/Vol] 32.6 g/dL 32-36 [facility] Mean platelet volume determi nationOrdered By: Chente Conn on 07-25-2024 Platelet mean volume (Bld) [Entitic vol] 10.2 fL 6.2-12.0 [facility] Monocyte percentageOrdered B y: Chente Conn on 07-25-2024 Monocytes/100 WBC (Bld) 11.6 % High 0-10 [facility] Neutrophil percentageOrdered By: Chente Conn on 07-25-2024 Neutrophils/100 WBC (Bld) 52.5 % 47-70 [facility] Nucleated red blood cell per centageOrdered By: Chente Conn on 07-25-2024 Nucleated RBC/100 WBC (Bld) [Ratio] 0 % 0-5 [facility] Platelet countOrdered By: Areli Conn on 07-25-2024 Platelets (Bld) [#/Vol] 166 10*3/uL 150-450 [facility] Potassium measurement (mass/ volume)Ordered By: Chente Conn on 07-25-2024 Potassium (Unsp spec) [Mass/Vol] 3.7 mmol/L 3.3-5.1 [facility] RBC Auto (Bld) [#/Vol]Ordere d By: Chente Conn on 07-25-2024 RBC (Bld) [#/Vol] 3.58 10*6/uL Low 4.6-6.2 [facility] Serum creatinine measurement (mass/volume)Ordered By: Chente Conn on 07-25-2024 Creatinine [Mass/Vol] 0.33 mg/dL Low 0.70-1.20 [facility] Serum glucose measurement (m ass/volume)Ordered By: Chente Conn on 07-25-2024 Glucose [Mass/Vol] 113 mg/dL High 70-99 [facility] Serum or plasma calcium jacinta urement (mass/volume)Ordered By: Chente Conn on 07-25-2024 Calcium [Mass/Vol] 8.8 mg/dL 7.6-11.0 [facility] Serum or plasma urea nitroge n measurement (mass/volume)Ordered By: Chente Conn on 07-25-2024 Urea nitrogen [Mass/Vol] 8 mg/dL 4-19 [facility] Sodium levelOrdered By: Chente Conn on 07-25-2024 Sodium [Moles/Vol] 137 mmol/L 133-145 [facility] White blood cell (WBC) count Ordered By: Chente Conn on 07-25-2024 WBC (Bld) [#/Vol] 6.4 10*3/uL 4.4-11.0 [facility] Free testosterone percentage Ordered By: Matteo Posadas on 07-18-2024 Testosterone Free/Testosterone.total [Mass fraction] 5.01 % High 1.50-4.20 [facility] Insulin-like growth factor ( IGF) measurementOrdered By: Matteo Posadas on 07-18-2024 Insulin-like growth factor [Moles/Vol] 109 ng/mL 84-270 [facility] Comment on above: Performed at: [facility] [address] [id number] Director: Berry Gonzalez PhD, Phone: [phone] at: [facility] [address] [id number] Director: Nicholas Ryan MD, Phone: [phone] Serum or plasma free testost erone measurement (mass/volume)Ordered By: Matteo Posadas on 07-18-2024 Testosterone Free [Mass/Vol] 0.50 ng/dL Low 5.00-21.00 [facility] Testosterone, totalOrdered B y: Matteo Posadas on 07-18-2024 Testosterone [Mass/Vol] 10 ng/dL Low 264-916 [facility] Comment on above: Adult male reference interval is based on a population ofhealthy nonobese males (BMI <30) between 19 and 39 yearsold. Marlen et.al. JCEM 2017,102;[id number]. PMID:[id number]. Absolute lymphocyte countOrd ered By: Chente Conn on 06-26-2024 Lymphocytes Auto (Unsp spec) [#/Vol] 2.13 10*3/uL 0.83-4.51 [facility] Absolute neutrophil countOrd ered By: Chente Conn on 06-26-2024 Neutrophils (Bld) [#/Vol] 2.7 10*3/uL 2.0-7.7 [facility] Anion gap in Serum or Plasma Ordered By: Chente Conn on 06-26-2024 Anion gap [Moles/Vol] 10 mmol/L 5-15 [facility] Automated lymphocyte count a s percentage of total leukocytesOrdered By: Chente Conn on 06-26-2024 Lymphocytes/100 WBC Auto (Unsp spec) 36.8 % 19-41 [facility] BUN/creatinine ratioOrdered By: Chente Conn on 06-26-2024 Urea nitrogen/Creatinine [Mass ratio] 40.8 mg/mg High 10-20 [facility] Basophil percentageOrdered B y: Chente Conn on 06-26-2024 Basophils/100 WBC (Bld) 0.3 % 0-1 [facility] Bilirubin, totalOrdered By: Chente Conn on 06-26-2024 Bilirubin [Mass/Vol] 0.16 mg/dL 0.00-1.30 [facility] Carbon dioxide, total [Moles /volume] in Central venous bloodOrdered By: Chente Conn on 06-26-2024 CO2 [Moles/Vol] 27.6 mmol/L 21.0-32.0 [facility] Chloride assayOrdered By: Areli Conn on 06-26-2024 Chloride [Moles/Vol] 98 mmol/L 98-108 [facility] Eosinophil percentageOrdered By: Chente Conn on 06-26-2024 Eosinophils/100 WBC (Bld) 6.6 % High 0-5 [facility] Erythrocyte distribution wid th ratioOrdered By: Chente Conn on 06-26-2024 Erythrocyte distribution width (RBC) [Ratio] 15.4 % High 11.6-14.6 [facility] Erythrocyte distribution wid th standard deviationOrdered By: Chente Conn on 06-26-2024 Erythrocyte distribution width (RBC) [Ratio] 46.5 fl High 35.1-43.9 [facility] Glomerular filtration rate ( GFR) estimation/1.73 sq m using serum, plasma, or whole bOrdered By: Chente Conn on 06-26-2024 GFR/1.73 sq M.predicted among non-blacks MDRD (S/P/Bld) [Vol rate/Area] 157 mL/min/{1.73_m2} >60 [facility] Comment on above: mL/min/1.73m2 CKD-EP I Creatinine Equation (2020) Hematocrit Auto (Bld) [Volum e fraction]Ordered By: Chente Conn on 06-26-2024 Hematocrit (Bld) [Volume fraction] 32.2 % Low 40-54 [facility] Hemoglobin measurementOrdere d By: Chente Conn on 06-26-2024 Hemoglobin (Bld) [Mass/Vol] 10.3 g/dL Low 13.0-16.5 [facility] Immature granulocytes/100 WB C Auto (Bld)Ordered By: Chente Conn on 06-26-2024 Immature granulocytes/100 WBC (Bld) 0.300 % 0.0-0.9 [facility] Comment on above: IG% - Immature Granu locytes (promyelocytes, myelocytes and metamyelocytes) > 1% indicates that a LEFT SHIFT is Present. Iron measurement (mass/mass) Ordered By: Chente Conn on 06-26-2024 Iron (Unsp spec) [Mass/Mass] 30 ug/dL Low 65-175 [facility] LH ser/plasOrdered By: Matteo Posadas on 06-26-2024 Lutropin Qn 40.9 m[IU]/mL [facility] Comment on above: FEMALE:Follicular: 1 .9-12.5 mIU/mLMidcycle: 8.7-76.3 mIU/mLLuteal: 0.5-16.9 mIU/mLPost Menopause: 15.9-54.0 mIU/mLMALE:20-70 Years: 1.5-9.3 mIU/mL>70 Years: 3.1-34.6 mIU/mL Laboratory - Chemistry and C hemistry - challengeOrdered By: Chente Conn on 06-26-2024 AST [Catalytic activity/Vol] 12 U/L <38 [facility] MCV (mean corpuscular volume ) determinationOrdered By: Chente Conn on 06-26-2024 MCV (RBC) [Entitic vol] 84.3 fL 80-94 [facility] Mean corpuscular hemoglobin (MCH) determinationOrdered By: Chente Conn on 06-26-2024 MCH (RBC) [Entitic mass] 27.0 pg 27.0-32.0 [facility] Mean corpuscular hemoglobin concentration (MCHC) determinationOrdered By: Chente Conn on 06-26-2024 MCHC (RBC) [Mass/Vol] 32.0 g/dL 32-36 [facility] Mean platelet volume determi nationOrdered By: Chente Conn on 06-26-2024 Platelet mean volume (Bld) [Entitic vol] 10.0 fL 6.2-12.0 [facility] Monocyte percentageOrdered B y: Chente Conn on 06-26-2024 Monocytes/100 WBC (Bld) 9.2 % 0-10 [facility] Neutrophil percentageOrdered By: Chente Conn on 06-26-2024 Neutrophils/100 WBC (Bld) 46.8 % Low 47-70 [facility] No Panel InformationOrdered By: Chente Conn on 06-26-2024 Unsaturated Iron Binding Capacity 216 ug/dL Low 228-428 [facility] Nucleated red blood cell per centageOrdered By: Chente Conn on 06-26-2024 Nucleated RBC/100 WBC (Bld) [Ratio] 0 % 0-5 [facility] Platelet countOrdered By: Areli Conn on 06-26-2024 Platelets (Bld) [#/Vol] 204 10*3/uL 150-450 [facility] Potassium measurement (mass/ volume)Ordered By: Chente Conn on 06-26-2024 Potassium (Unsp spec) [Mass/Vol] 3.8 mmol/L 3.3-5.1 [facility] RBC Auto (Bld) [#/Vol]Ordere d By: Chente Conn on 06-26-2024 RBC (Bld) [#/Vol] 3.82 10*6/uL Low 4.6-6.2 [facility] Serum creatinine measurement (mass/volume)Ordered By: Chente Conn on 06-26-2024 Creatinine [Mass/Vol] 0.27 mg/dL Low 0.70-1.20 [facility] Serum globulin measurementOr dered By: Chente Conn on 06-26-2024 Globulin (S) [Mass/Vol] 4.2 g/dL 2.2-4.2 [facility] Serum glucose measurement (m ass/volume)Ordered By: Chente Conn on 06-26-2024 Glucose [Mass/Vol] 80 mg/dL 70-99 [facility] Serum or plasma alanine salas otransferase (ALT) measurementOrdered By: Chente Conn on 06-26-2024 ALT [Catalytic activity/Vol] 8 U/L <47 [facility] Serum or plasma albumin jacinta urement (mass/volume)Ordered By: Chente Conn on 06-26-2024 Albumin [Mass/Vol] 3.6 g/dL 3.5-5.0 [facility] Serum or plasma albumin/glob ulin mass ratioOrdered By: Chente Conn on 06-26-2024 Albumin/Globulin [Mass ratio] 0.8 {ratio} Low 0.9-2.4 [facility] Serum or plasma alkaline robbi sphatase measurementOrdered By: Chente Conn on 06-26-2024 ALP [Catalytic activity/Vol] 166 U/L High 40-129 [facility] Serum or plasma calcium jacinta urement (mass/volume)Ordered By: Chente Conn on 06-26-2024 Calcium [Mass/Vol] 8.9 mg/dL 7.6-11.0 [facility] Serum or plasma ferritin missy surement (mass/volume)Ordered By: Chente Conn on 06-26-2024 Ferritin [Mass/Vol] 39 ng/mL 37-417 [facility] Serum or plasma iron saturat ion measurement (mass fraction)Ordered By: Chente Conn on 06-26-2024 Iron saturation [Mass fraction] 12.2 % 9-55 [facility] Comment on above: Previous reported re sult: 12.0 %Edited by: KARTHIKEYAN on 06/26/24:9938 AMENDED REPORT 06/26/24 1103 IRON SATURATION previously reported as: 12.0 % Serum or plasma prolactin me asurement (mass/volume)Ordered By: Matteo Posadas on 06-26-2024 Prolactin [Mass/Vol] See comment [facility] Comment on above: TEST RESULTS LIMITSP rolactin 31.5 High ng/mL 3.9-22.7 TESTING PERFORMED AT [facility]. ORIGINAL REPORT ON FILE IN LAB CONTAINS ADDITIONAL TEST SITE INFORMATION. Serum or plasma urea nitroge n measurement (mass/volume)Ordered By: Chente Conn on 06-26-2024 Urea nitrogen [Mass/Vol] 11 mg/dL 4-19 [facility] Sodium levelOrdered By: Chente Conn on 06-26-2024 Sodium [Moles/Vol] 136 mmol/L 133-145 [facility] Total proteinOrdered By: Darwin Conn on 06-26-2024 Protein [Mass/Vol] 7.8 g/dL 5.9-8.4 [facility] White blood cell (WBC) count Ordered By: Chente Conn on 06-26-2024 WBC (Bld) [#/Vol] 5.8 10*3/uL 4.4-11.0 [facility] Absolute lymphocyte countOrd ered By: Chente Conn on 05-29-2024 Lymphocytes Auto (Unsp spec) [#/Vol] 2.21 10*3/uL 0.83-4.51 [facility] Absolute neutrophil countOrd ered By: Chente Conn on 05-29-2024 Neutrophils (Bld) [#/Vol] 3.5 10*3/uL 2.0-7.7 [facility] Anion gap in Serum or Plasma Ordered By: Chente Conn on 05-29-2024 Anion gap [Moles/Vol] 12 mmol/L 5-15 [facility] Automated lymphocyte count a s percentage of total leukocytesOrdered By: Chente Conn on 05-29-2024 Lymphocytes/100 WBC Auto (Unsp spec) 32.7 % 19-41 [facility] BUN/creatinine ratioOrdered By: Chente Conn on 05-29-2024 Urea nitrogen/Creatinine [Mass ratio] 37.5 mg/mg High 10-20 [facility] Basophil percentageOrdered B y: Chente Conn on 05-29-2024 Basophils/100 WBC (Bld) 0.3 % 0-1 [facility] Bilirubin, totalOrdered By: Chente Conn on 05-29-2024 Bilirubin [Mass/Vol] mg/dL 0.00-1.30 [facility] Carbon dioxide, total [Moles /volume] in Central venous bloodOrdered By: Chente Conn on 05-29-2024 CO2 [Moles/Vol] 25.6 mmol/L 21.0-32.0 [facility] Chloride assayOrdered By: Areli Conn on 05-29-2024 Chloride [Moles/Vol] 100 mmol/L 98-108 [facility] Eosinophil percentageOrdered By: Chente Conn on 05-29-2024 Eosinophils/100 WBC (Bld) 5.2 % High 0-5 [facility] Erythrocyte distribution wid th ratioOrdered By: Chente Conn on 05-29-2024 Erythrocyte distribution width (RBC) [Ratio] 16.6 % High 11.6-14.6 [facility] Erythrocyte distribution wid th standard deviationOrdered By: Chente Conn on 05-29-2024 Erythrocyte distribution width (RBC) [Ratio] 51.6 fl High 35.1-43.9 [facility] Glomerular filtration rate ( GFR) estimation/1.73 sq m using serum, plasma, or whole bOrdered By: Chente Conn on 05-29-2024 GFR/1.73 sq M.predicted among non-blacks MDRD (S/P/Bld) [Vol rate/Area] 147 mL/min/{1.73_m2} >60 [facility] Comment on above: mL/min/1.73m2 CKD-EP I Creatinine Equation (2020) Hematocrit Auto (Bld) [Volum e fraction]Ordered By: Chente Conn on 05-29-2024 Hematocrit (Bld) [Volume fraction] 31.8 % Low 40-54 [facility] Hemoglobin measurementOrdere d By: Chente Conn on 05-29-2024 Hemoglobin (Bld) [Mass/Vol] 10.0 g/dL Low 13.0-16.5 [facility] Immature granulocytes/100 WB C Auto (Bld)Ordered By: Chente Conn on 05-29-2024 Immature granulocytes/100 WBC (Bld) 0.300 % 0.0-0.9 [facility] Comment on above: IG% - Immature Granu locytes (promyelocytes, myelocytes and metamyelocytes) > 1% indicates that a LEFT SHIFT is Present. Laboratory - Chemistry and C hemistry - challengeOrdered By: Chente Conn on 05-29-2024 AST [Catalytic activity/Vol] 14 U/L <38 [facility] MCV (mean corpuscular volume ) determinationOrdered By: Chente Conn on 05-29-2024 MCV (RBC) [Entitic vol] 84.8 fL 80-94 [facility] Mean corpuscular hemoglobin (MCH) determinationOrdered By: Chente Conn on 05-29-2024 MCH (RBC) [Entitic mass] 26.7 pg Low 27.0-32.0 [facility] Mean corpuscular hemoglobin concentration (MCHC) determinationOrdered By: Chente Conn on 05-29-2024 MCHC (RBC) [Mass/Vol] 31.4 g/dL Low 32-36 [facility] Mean platelet volume determi nationOrdered By: Chente Conn on 05-29-2024 Platelet mean volume (Bld) [Entitic vol] 10.1 fL 6.2-12.0 [facility] Monocyte percentageOrdered B y: Chente oCnn on 05-29-2024 Monocytes/100 WBC (Bld) 9.6 % 0-10 [facility] Neutrophil percentageOrdered By: Chente Conn on 05-29-2024 Neutrophils/100 WBC (Bld) 51.9 % 47-70 [facility] Nucleated red blood cell per centageOrdered By: Chente Conn on 05-29-2024 Nucleated RBC/100 WBC (Bld) [Ratio] 0 % 0-5 [facility] Platelet countOrdered By: Areli Conn on 05-29-2024 Platelets (Bld) [#/Vol] 182 10*3/uL 150-450 [facility] Potassium measurement (mass/ volume)Ordered By: Chente Conn on 05-29-2024 Potassium (Unsp spec) [Mass/Vol] 3.7 mmol/L 3.3-5.1 [facility] RBC Auto (Bld) [#/Vol]Ordere d By: Chente Conn on 05-29-2024 RBC (Bld) [#/Vol] 3.75 10*6/uL Low 4.6-6.2 [facility] Serum creatinine measurement (mass/volume)Ordered By: Chente Conn on 05-29-2024 Creatinine [Mass/Vol] 0.34 mg/dL Low 0.70-1.20 [facility] Serum globulin measurementOr dered By: Chente Conn on 05-29-2024 Globulin (S) [Mass/Vol] 3.7 g/dL 2.2-4.2 [facility] Serum glucose measurement (m ass/volume)Ordered By: Chente Conn on 05-29-2024 Glucose [Mass/Vol] 107 mg/dL High 70-99 [facility] Serum or plasma alanine salas otransferase (ALT) measurementOrdered By: Chente Conn on 05-29-2024 ALT [Catalytic activity/Vol] 11 U/L <47 [facility] Serum or plasma albumin jacinta urement (mass/volume)Ordered By: Chente Conn on 05-29-2024 Albumin [Mass/Vol] 3.5 g/dL 3.5-5.0 [facility] Serum or plasma albumin/glob ulin mass ratioOrdered By: Chente Conn on 05-29-2024 Albumin/Globulin [Mass ratio] 0.9 {ratio} 0.9-2.4 [facility] Serum or plasma alkaline robbi sphatase measurementOrdered By: Chente Conn on 05-29-2024 ALP [Catalytic activity/Vol] 131 U/L High 40-129 [facility] Serum or plasma calcium jacinta urement (mass/volume)Ordered By: Chente Conn on 05-29-2024 Calcium [Mass/Vol] 8.8 mg/dL 7.6-11.0 [facility] Serum or plasma urea nitroge n measurement (mass/volume)Ordered By: Chente Conn on 05-29-2024 Urea nitrogen [Mass/Vol] 13 mg/dL 4-19 [facility] Sodium levelOrdered By: Chente Conn on 05-29-2024 Sodium [Moles/Vol] 137 mmol/L 133-145 [facility] Total proteinOrdered By: Darwin Conn on 05-29-2024 Protein [Mass/Vol] 7.1 g/dL 5.9-8.4 [facility] White blood cell (WBC) count Ordered By: Chente Conn on 05-29-2024 WBC (Bld) [#/Vol] 6.8 10*3/uL 4.4-11.0 [facility] Gram stainOrdered By: Johnny Kee on 05-09-2024 Microscopic observation Gram stain Nom (Unsp spec) [facility] Microbial respiratory cultur eOrdered By: Valarie Kee on 05-09-2024 Microorganism identified Cx Nom (Unsp spec) Pseudomonas aeruginosa Abnormal [facility] Microorganism identified Cx Nom (Unsp spec) Pseudomonas aeruginosa#2 Abnormal [facility] Microorganism identified Cx Nom (Unsp spec) Proteus mirabilis Abnormal [facility] Microorganism identified Cx Nom (Unsp spec)Ordered By: Valarie Kee on 05-09-2024 Respiratory Culture Pseudomonas aeruginosa Abnormal [facility] Respiratory Culture Pseudomonas aeruginosa#2 Abnormal [facility] Respiratory Culture Proteus mirabilis Abnormal [facility] Absolute lymphocyte countOrd ered By: Chente Conn on 05-01-2024 Lymphocytes Auto (Unsp spec) [#/Vol] 2.20 10*3/uL 0.83-4.51 [facility] Absolute neutrophil countOrd ered By: Chente Conn on 05-01-2024 Neutrophils (Bld) [#/Vol] 3.1 10*3/uL 2.0-7.7 [facility] Anion gap in Serum or Plasma Ordered By: Chente Conn on 05-01-2024 Anion gap [Moles/Vol] 10 mmol/L 5-15 [facility] Automated lymphocyte count a s percentage of total leukocytesOrdered By: Chente Conn on 05-01-2024 Lymphocytes/100 WBC Auto (Unsp spec) 35.4 % - [facility] BUN/creatinine ratioOrdered By: Chente Conn on 05-01-2024 Urea nitrogen/Creatinine [Mass ratio] 40.6 mg/mg High 10-20 [facility] Basophil percentageOrdered B y: Chente Conn on 05-01-2024 Basophils/100 WBC (Bld) 0.2 % 0-1 [facility] Carbon dioxide, total [Moles /volume] in Central venous bloodOrdered By: Chente Conn on 05-01-2024 CO2 [Moles/Vol] 27.4 mmol/L 21.0-32.0 [facility] Chloride assayOrdered By: Areli Conn on 05-01-2024 Chloride [Moles/Vol] 98 mmol/L 98-108 [facility] Eosinophil percentageOrdered By: Chente Conn on 05-01-2024 Eosinophils/100 WBC (Bld) 4.7 % 0-5 [facility] Erythrocyte distribution wid th ratioOrdered By: Chente Conn on 05-01-2024 Erythrocyte distribution width (RBC) [Ratio] 16.6 % High 11.6-14.6 [facility] Erythrocyte distribution wid th standard deviationOrdered By: Chente Conn on 05-01-2024 Erythrocyte distribution width (RBC) [Entitic vol] 50.4 fL High 35.1-43.9 [facility] Erythrocyte distribution width (RBC) [Ratio] 50.4 fl High 35.1-43.9 [facility] GFR/1.73 sq M.predicted joey g non-blacks MDRD (S/P/Bld) [Vol rate/Area]Ordered By: Chente Conn on 05-01-2024 Estimated GFR (MDRD) Non-Af Amer 154 >60 [facility] Comment on above: mL/min/1.73m2 CKD-EP I Creatinine Equation (2020) Glomerular filtration rate ( GFR) estimation/1.73 sq m using serum, plasma, or whole bOrdered By: Chente Conn on 05-01-2024 GFR/1.73 sq M.predicted among non-blacks MDRD (S/P/Bld) [Vol rate/Area] 154 mL/min/{1.73_m2} >60 [facility] Comment on above: mL/min/1.73m2 CKD-EP I Creatinine Equation (2020) Hematocrit Auto (Bld) [Volum e fraction]Ordered By: Chente Conn on 05-01-2024 Hematocrit (Bld) [Volume fraction] 33.5 % Low 40-54 [facility] Hemoglobin measurementOrdere d By: Chente Conn on 05-01-2024 Hemoglobin (Bld) [Mass/Vol] 10.5 g/dL Low 13.0-16.5 [facility] Immature granulocytes/100 WB C Auto (Bld)Ordered By: Chente Conn on 05-01-2024 Immature granulocytes/100 WBC (Bld) 0.200 % 0.0-0.9 [facility] Comment on above: IG% - Immature Granu locytes (promyelocytes, myelocytes and metamyelocytes) > 1% indicates that a LEFT SHIFT is Present. Lymphocytes Auto (Unsp spec) [#/Vol]Ordered By: Chente Conn on 05-01-2024 Lymphocytes (Bld) [#/Vol] 2.20 10*3/uL 0.83-4.5 1 [facility] Lymphocytes/100 WBC Auto (Un sp spec)Ordered By: Chente Conn on 05-01-2024 Lymphocytes/100 WBC (Bld) 35.4 % 19-41 [facility] MCV (mean corpuscular volume ) determinationOrdered By: Chente Conn on 05-01-2024 MCV (RBC) [Entitic vol] 82.7 fL 80-94 [facility] Mean corpuscular hemoglobin (MCH) determinationOrdered By: Chente Conn on 05-01-2024 MCH (RBC) [Entitic mass] 25.9 pg Low 27.0-32.0 [facility] Mean corpuscular hemoglobin concentration (MCHC) determinationOrdered By: Chente Conn on 05-01-2024 MCHC (RBC) [Mass/Vol] 31.3 g/dL Low 32-36 [facility] Mean platelet volume determi nationOrdered By: Chente Conn on 05-01-2024 Platelet mean volume (Bld) [Entitic vol] 10.5 fL 6.2-12.0 [facility] Monocyte percentageOrdered B y: Chente Conn on 05-01-2024 Monocytes/100 WBC (Bld) 10.3 % High 0-10 [facility] Neutrophil percentageOrdered By: Chente Conn on 05-01-2024 Neutrophils/100 WBC (Bld) 49.2 % 47-70 [facility] Nucleated red blood cell per centageOrdered By: Chente Conn on 03-10-2025 Nucleated RBC/100 WBC (Bld) [Ratio] 0 % 0-5 [facility] Platelet countOrdered By: Areli Conn on 05-01-2024 Platelets (Bld) [#/Vol] 209 10*3/uL 150-450 [facility] Potassium (Unsp spec) [Mass/ Vol]Ordered By: Chente Conn on 05-01-2024 Potassium [Moles/Vol] 4.3 mmol/L 3.3-5.1 [facility] Potassium measurement (mass/ volume)Ordered By: Chente Conn on 05-01-2024 Potassium (Unsp spec) [Mass/Vol] 4.3 mmol/L 3.3-5.1 [facility] RBC Auto (Bld) [#/Vol]Ordere d By: Chente Conn on 05-01-2024 RBC (Bld) [#/Vol] 4.05 10*6/uL Low 4.6-6.2 [facility] Serum creatinine measurement (mass/volume)Ordered By: Chente Conn on 05-01-2024 Creatinine [Mass/Vol] 0.29 mg/dL Low 0.70-1.20 [facility] Serum glucose measurement (m ass/volume)Ordered By: Chente Conn on 05-01-2024 Glucose [Mass/Vol] 82 mg/dL 70-99 [facility] Serum or plasma calcium jacinta urement (mass/volume)Ordered By: Chente Conn on 05-01-2024 Calcium [Mass/Vol] 8.8 mg/dL 7.6-11.0 [facility] Serum or plasma urea nitroge n measurement (mass/volume)Ordered By: Chente Conn on 05-01-2024 Urea nitrogen [Mass/Vol] 12 mg/dL 4-19 [facility] Sodium levelOrdered By: Chente Conn on 05-01-2024 Sodium [Moles/Vol] 135 mmol/L 133-145 [facility] White blood cell (WBC) count Ordered By: Chente Conn on 05-01-2024 WBC (Bld) [#/Vol] 6.2 10*3/uL 4.4-11.0 [facility] Absolute lymphocyte countOrd ered By: Chente Conn on 04-03-2024 Lymphocytes Auto (Unsp spec) [#/Vol] 2.12 10*3/uL 0.83-4.51 [facility] Absolute neutrophil countOrd ered By: Chente Conn on 04-03-2024 Neutrophils (Bld) [#/Vol] 2.2 10*3/uL 2.0-7.7 [facility] Automated lymphocyte count a s percentage of total leukocytesOrdered By: Chente Conn on 04-03-2024 Lymphocytes/100 WBC Auto (Unsp spec) 41.2 % High 19-41 [facility] Basophil percentageOrdered B y: Chente Conn on 04-03-2024 Basophils/100 WBC (Bld) 0.2 % 0-1 [facility] Blood urea nitrogen (BUN)/cr eatinine ratioOrdered By: Chente Conn on 04-03-2024 Urea nitrogen/Creatinine [Mass ratio] 52.6 mg/mg High 10-20 [facility] Carbon dioxide measurementOr dered By: Chente Conn on 04-03-2024 CO2 [Moles/Vol] 32.0 mmol/L 21.0-32.0 [facility] Chloride measurementOrdered By: Chente Conn on 04-03-2024 Chloride [Moles/Vol] 102 mmol/L 98-107 [facility] Eosinophil percentageOrdered By: Chente Conn on 04-03-2024 Eosinophils/100 WBC (Bld) 4.9 % 0-5 [facility] Erythrocyte distribution wid th ratioOrdered By: Chente Conn on 04-03-2024 Erythrocyte distribution width (RBC) [Ratio] 15.6 % High 11.6-14.6 [facility] Erythrocyte distribution wid th standard deviationOrdered By: Chente Conn on 04-03-2024 Erythrocyte distribution width (RBC) [Entitic vol] 46.3 fL High 35.1-43.9 [facility] Erythrocyte distribution width (RBC) [Ratio] 46.3 fl High 35.1-43.9 [facility] Estimated glomerular filtrat ion rate (GFR) AmericanOrdered By: Chente Conn on 04-03-2024 Estimated GFR (MDRD) Amer 641 mL/min >60 [facility] Comment on above: GFR Calc Glomerular filtration rate ( GFR) estimationOrdered By: Chente Conn on 04-03-2024 Estimated GFR (MDRD) Non-Af Amer 530 mL/min >60 [facility] Comment on above: Non- GFR Calc GFR/1.73 sq M.predicted among non-blacks MDRD (S/P/Bld) [Vol rate/Area] 530 mL/min/{1.73_m2} >60 [facility] Comment on above: Non- GFR Calc Glucose measurementOrdered B y: Chente Conn on 04-03-2024 Glucose [Mass/Vol] 87 mg/dL 74-106 [facility] Hematocrit Auto (Bld) [Volum e fraction]Ordered By: Chente Conn on 04-03-2024 Hematocrit (Bld) [Volume fraction] 30.9 % Low 40-54 [facility] Hemoglobin measurementOrdere d By: Chente Conn on 04-03-2024 Hemoglobin (Bld) [Mass/Vol] 9.8 g/dL Low 13.0-16.5 [facility] Immature granulocytes/100 WB C Auto (Bld)Ordered By: Chente Conn on 04-03-2024 Immature granulocytes/100 WBC (Bld) 0.200 % 0.0-0.9 [facility] Comment on above: IG% - Immature Granu locytes (promyelocytes, myelocytes and metamyelocytes) > 1% indicates that a LEFT SHIFT is Present. Lymphocytes Auto (Unsp spec) [#/Vol]Ordered By: Chente Conn on 04-03-2024 Lymphocytes (Bld) [#/Vol] 2.12 10*3/uL 0.83-4.5 1 [facility] Lymphocytes/100 WBC Auto (Un sp spec)Ordered By: Chente Conn on 04-03-2024 Lymphocytes/100 WBC (Bld) 41.2 % High 19-41 [facility] MCV (mean corpuscular volume ) determinationOrdered By: Chente Conn on 04-03-2024 MCV (RBC) [Entitic vol] 82.8 fL 80-94 [facility] Mean corpuscular hemoglobin (MCH) determinationOrdered By: Chente Conn on 04-03-2024 MCH (RBC) [Entitic mass] 26.3 pg Low 27.0-32.0 [facility] Mean corpuscular hemoglobin concentration (MCHC) determinationOrdered By: Chente Conn on 04-03-2024 MCHC (RBC) [Mass/Vol] 31.7 g/dL Low 32-36 [facility] Mean platelet volume determi nationOrdered By: Chente Conn on 04-03-2024 Platelet mean volume (Bld) [Entitic vol] 9.8 fL 6.2-12.0 [facility] Monocyte percentageOrdered B y: Chente Conn on 04-03-2024 Monocytes/100 WBC (Bld) 10.9 % High 0-10 [facility] Neutrophil percentageOrdered By: Chente Conn on 04-03-2024 Neutrophils/100 WBC (Bld) 42.6 % Low 47-70 [facility] Nucleated red blood cell per centageOrdered By: Chente Conn on 04-03-2024 Nucleated RBC/100 WBC (Bld) [Ratio] 0 % 0-5 [facility] Platelet countOrdered By: Areli Conn on 04-03-2024 Platelets (Bld) [#/Vol] 170 10*3/uL 150-450 [facility] Potassium measurementOrdered By: Chente Conn on 04-03-2024 Potassium [Moles/Vol] 3.8 mmol/L 3.5-5.1 [facility] RBC Auto (Bld) [#/Vol]Ordere d By: Chente Conn on 04-03-2024 RBC (Bld) [#/Vol] 3.73 10*6/uL Low 4.6-6.2 [facility] Serum anion gap measurementO rdered By: Chente Conn on 04-03-2024 Anion gap [Moles/Vol] 5 mmol/L 5-15 [facility] Serum or plasma calcium jacinta urement (mass/volume)Ordered By: Chente Conn on 04-03-2024 Calcium [Mass/Vol] 8.4 mg/dL Low 8.5-10.1 [facility] Serum or plasma creatinine m easurement (mass/volume)Ordered By: Chente Conn on 04-03-2024 Creatinine [Mass/Vol] 0.21 mg/dL Low 0.70-1.30 [facility] Comment on above: The validity of the calculated GFR & GFRAA in patients over 70 years has not been determined. Clinical correlation is essential. Serum or plasma urea nitroge n measurement (mass/volume)Ordered By: Chente Conn on 04-03-2024 Urea nitrogen [Mass/Vol] 11 mg/dL 7-18 [facility] Sodium levelOrdered By: Chente Conn on 04-03-2024 Sodium [Moles/Vol] 138 mmol/L 136-145 [facility] White blood cell (WBC) count Ordered By: Chente Conn on 04-03-2024 WBC (Bld) [#/Vol] 5.1 10*3/uL 4.4-11.0 [facility] Absolute lymphocyte countOrd ered By: Chente Conn on 03-08-2024 Lymphocytes Auto (Unsp spec) [#/Vol] 1.74 10*3/uL 0.83-4.51 [facility] Absolute neutrophil countOrd ered By: Chente Conn on 03-08-2024 Neutrophils (Bld) [#/Vol] 2.6 10*3/uL 2.0-7.7 [facility] Automated lymphocyte count a s percentage of total leukocytesOrdered By: Chente Conn on 03-08-2024 Lymphocytes/100 WBC Auto (Unsp spec) 33.7 % 19-41 [facility] Basophil percentageOrdered B y: Chente Conn on 03-08-2024 Basophils/100 WBC (Bld) 0.2 % 0-1 [facility] Blood urea nitrogen (BUN)/cr eatinine ratioOrdered By: Chente Conn on 03-08-2024 Urea nitrogen/Creatinine [Mass ratio] 53.2 mg/mg High 10-20 [facility] Carbon dioxide measurementOr dered By: Chente Conn on 03-08-2024 CO2 [Moles/Vol] 31.0 mmol/L 21.0-32.0 [facility] Chloride measurementOrdered By: Chente Conn on 03-08-2024 Chloride [Moles/Vol] 102 mmol/L 98-107 [facility] Eosinophil percentageOrdered By: Chente Conn on 03-08-2024 Eosinophils/100 WBC (Bld) 5.8 % High 0-5 [facility] Erythrocyte distribution wid th ratioOrdered By: Chente Conn on 03-08-2024 Erythrocyte distribution width (RBC) [Ratio] 14.4 % 11.6-14.6 [facility] Erythrocyte distribution wid th standard deviationOrdered By: Chente Conn on 03-08-2024 Erythrocyte distribution width (RBC) [Entitic vol] 43.7 fL 35.1-43.9 [facility] Erythrocyte distribution width (RBC) [Ratio] 43.7 fl 35.1-43.9 [facility] Estimated glomerular filtrat ion rate (GFR) AmericanOrdered By: Chente Conn on 03-08-2024 Estimated GFR (MDRD) Amer 454 mL/min >60 [facility] Comment on above: GFR Calc Glomerular filtration rate ( GFR) estimationOrdered By: Chente Conn on 03-08-2024 Estimated GFR (MDRD) Non-Af Amer 375 mL/min >60 [facility] Comment on above: Non- GFR Calc GFR/1.73 sq M.predicted among non-blacks MDRD (S/P/Bld) [Vol rate/Area] 375 mL/min/{1.73_m2} >60 [facility] Comment on above: Non- GFR Calc Glucose measurementOrdered B y: Chente Conn on 03-08-2024 Glucose [Mass/Vol] 112 mg/dL High 74-106 [facility] Comment on above: Fasting Glucose resu lt from 100 to 125 mg/dL suggests IMPAIRED HOMEOSTASIS per A.D.A. criteria. Hematocrit Auto (Bld) [Volum e fraction]Ordered By: Chente Conn on 03-08-2024 Hematocrit (Bld) [Volume fraction] 31.3 % Low 40-54 [facility] Hemoglobin measurementOrdere d By: Chente Conn on 03-08-2024 Hemoglobin (Bld) [Mass/Vol] 9.7 g/dL Low 13.0-16.5 [facility] Immature granulocytes/100 WB C Auto (Bld)Ordered By: Chente Conn on 03-08-2024 Immature granulocytes/100 WBC (Bld) 0.200 % 0.0-0.9 [facility] Comment on above: IG% - Immature Granu locytes (promyelocytes, myelocytes and metamyelocytes) > 1% indicates that a LEFT SHIFT is Present. Lymphocytes Auto (Unsp spec) [#/Vol]Ordered By: Chente Conn on 03-08-2024 Lymphocytes (Bld) [#/Vol] 1.74 10*3/uL 0.83-4.5 1 [facility] Lymphocytes/100 WBC Auto (Un sp spec)Ordered By: Chente Conn on 03-08-2024 Lymphocytes/100 WBC (Bld) 33.7 % 19-41 [facility] MCV (mean corpuscular volume ) determinationOrdered By: Chente Conn on 03-08-2024 MCV (RBC) [Entitic vol] 83.7 fL 80-94 [facility] Mean corpuscular hemoglobin (MCH) determinationOrdered By: Chente Conn on 03-08-2024 MCH (RBC) [Entitic mass] 25.9 pg Low 27.0-32.0 [facility] Mean corpuscular hemoglobin concentration (MCHC) determinationOrdered By: Chente Conn on 03-08-2024 MCHC (RBC) [Mass/Vol] 31.0 g/dL Low 32-36 [facility] Mean platelet volume determi nationOrdered By: Chente Conn on 03-08-2024 Platelet mean volume (Bld) [Entitic vol] 10.7 fL 6.2-12.0 [facility] Monocyte percentageOrdered B y: Chente Conn on 03-08-2024 Monocytes/100 WBC (Bld) 9.7 % 0-10 [facility] Neutrophil percentageOrdered By: Chente Conn on 03-08-2024 Neutrophils/100 WBC (Bld) 50.4 % 47-70 [facility] Nucleated red blood cell per centageOrdered By: Chente Conn on 03-08-2024 Nucleated RBC/100 WBC (Bld) [Ratio] 0 % 0-5 [facility] Platelet countOrdered By: Areli Conn on 03-08-2024 Platelets (Bld) [#/Vol] 177 10*3/uL 150-450 [facility] Potassium measurementOrdered By: Chente Conn on 03-08-2024 Potassium [Moles/Vol] 3.5 mmol/L 3.5-5.1 [facility] RBC Auto (Bld) [#/Vol]Ordere d By: Chente Conn on 03-08-2024 RBC (Bld) [#/Vol] 3.74 10*6/uL Low 4.6-6.2 [facility] Serum anion gap measurementO rdered By: Chente Conn on 03-08-2024 Anion gap [Moles/Vol] 5 mmol/L 5-15 [facility] Serum or plasma calcium jacinta urement (mass/volume)Ordered By: Chente Conn on 03-08-2024 Calcium [Mass/Vol] 8.3 mg/dL Low 8.5-10.1 [facility] Serum or plasma creatinine m easurement (mass/volume)Ordered By: Chente Conn on 03-08-2024 Creatinine [Mass/Vol] 0.28 mg/dL Low 0.70-1.30 [facility] Comment on above: The validity of the calculated GFR & GFRAA in patients over 70 years has not been determined. Clinical correlation is essential. Serum or plasma urea nitroge n measurement (mass/volume)Ordered By: Chente Conn on 03-08-2024 Urea nitrogen [Mass/Vol] 15 mg/dL 7-18 [facility] Sodium levelOrdered By: Chente Conn on 03-08-2024 Sodium [Moles/Vol] 139 mmol/L 136-145 [facility] White blood cell (WBC) count Ordered By: Chente Conn on 03-08-2024 WBC (Bld) [#/Vol] 5.2 10*3/uL 4.4-11.0 [facility] Absolute neutrophil countOrd ered By: Chente Conn on 02-24-2024 Neutrophils (Bld) [#/Vol] 2.3 10*3/uL 2.0-7.7 [facility] Basophil percentageOrdered B y: Chente Conn on 02-24-2024 Basophils/100 WBC (Bld) 0.2 % 0-1 [facility] Blood urea nitrogen (BUN)/cr eatinine ratioOrdered By: Chente Conn on 02-24-2024 Urea nitrogen/Creatinine [Mass ratio] 53.8 mg/mg High 10-20 [facility] Carbon dioxide measurementOr dered By: Chente Conn on 02-24-2024 CO2 [Moles/Vol] 29.0 mmol/L 21.0-32.0 [facility] Chloride measurementOrdered By: Chente Conn on 02-24-2024 Chloride [Moles/Vol] 104 mmol/L 98-107 [facility] Eosinophil percentageOrdered By: Chente Conn on 02-24-2024 Eosinophils/100 WBC (Bld) 5.8 % High 0-5 [facility] Erythrocyte distribution wid th ratioOrdered By: Chente Conn on 02-24-2024 Erythrocyte distribution width (RBC) [Ratio] 14.1 % 11.6-14.6 [facility] Erythrocyte distribution wid th standard deviationOrdered By: Chente Conn on 02-24-2024 Erythrocyte distribution width (RBC) [Entitic vol] 43.2 fL 35.1-43.9 [facility] Estimated glomerular filtrat ion rate (GFR) AmericanOrdered By: Chente Conn on 02-24-2024 Estimated GFR (MDRD) Amer 460 mL/min >60 [facility] Comment on above: GFR Calc Glomerular filtration rate ( GFR) estimationOrdered By: Chente Conn on 02-24-2024 Estimated GFR (MDRD) Non-Af Amer 380 mL/min >60 [facility] Comment on above: Non- GFR Calc Glucose measurementOrdered B y: Chente Conn on 02-24-2024 Glucose [Mass/Vol] 102 mg/dL 74-106 [facility] Comment on above: Fasting Glucose resu lt from 100 to 125 mg/dL suggests IMPAIRED HOMEOSTASIS per A.D.A. criteria. Hematocrit Auto (Bld) [Volum e fraction]Ordered By: Chente Conn on 02-24-2024 Hematocrit (Bld) [Volume fraction] 32.6 % Low 40-54 [facility] Hemoglobin measurementOrdere d By: Chente Conn on 02-24-2024 Hemoglobin (Bld) [Mass/Vol] 9.8 g/dL Low 13.0-16.5 [facility] Immature granulocytes/100 WB C Auto (Bld)Ordered By: Chente Conn on 02-24-2024 Immature granulocytes/100 WBC (Bld) 0.200 % 0.0-0.9 [facility] Comment on above: IG% - Immature Granu locytes (promyelocytes, myelocytes and metamyelocytes) > 1% indicates that a LEFT SHIFT is Present. Lymphocytes Auto (Unsp spec) [#/Vol]Ordered By: Chente Conn on 02-24-2024 Lymphocytes (Bld) [#/Vol] 1.93 10*3/uL 0.83-4.5 1 [facility] Lymphocytes/100 WBC Auto (Un sp spec)Ordered By: Chente Conn on 02-24-2024 Lymphocytes/100 WBC (Bld) 38.5 % 19-41 [facility] MCV (mean corpuscular volume ) determinationOrdered By: Chente Conn on 02-24-2024 MCV (RBC) [Entitic vol] 84.9 fL 80-94 [facility] Mean corpuscular hemoglobin (MCH) determinationOrdered By: Chente Conn on 02-24-2024 MCH (RBC) [Entitic mass] 25.5 pg Low 27.0-32.0 [facility] Mean corpuscular hemoglobin concentration (MCHC) determinationOrdered By: Chente Conn on 02-24-2024 MCHC (RBC) [Mass/Vol] 30.1 g/dL Low 32-36 [facility] Mean platelet volume determi nationOrdered By: Chente Conn on 02-24-2024 Platelet mean volume (Bld) [Entitic vol] 9.9 fL 6.2-12.0 [facility] Monocyte percentageOrdered B y: Chente Conn on 02-24-2024 Monocytes/100 WBC (Bld) 8.8 % 0-10 [facility] Neutrophil percentageOrdered By: Chente Conn on 02-24-2024 Neutrophils/100 WBC (Bld) 46.5 % Low 47-70 [facility] Nucleated red blood cell per centageOrdered By: Chente Conn on 02-24-2024 Nucleated RBC/100 WBC (Bld) [Ratio] 0 % 0-5 [facility] Platelet countOrdered By: Areli Conn on 02-24-2024 Platelets (Bld) [#/Vol] 209 10*3/uL 150-450 [facility] Potassium measurementOrdered By: Chente Conn on 02-24-2024 Potassium [Moles/Vol] 3.7 mmol/L 3.5-5.1 [facility] RBC Auto (Bld) [#/Vol]Ordere d By: Chente Conn on 02-24-2024 RBC (Bld) [#/Vol] 3.84 10*6/uL Low 4.6-6.2 [facility] Serum anion gap measurementO rdered By: Chente Conn on 02-24-2024 Anion gap [Moles/Vol] 6 mmol/L 5-15 [facility] Serum or plasma calcium jacinta urement (mass/volume)Ordered By: Chente Conn on 02-24-2024 Calcium [Mass/Vol] 8.2 mg/dL Low 8.5-10.1 [facility] Serum or plasma creatinine m easurement (mass/volume)Ordered By: Chente Conn on 02-24-2024 Creatinine [Mass/Vol] 0.28 mg/dL Low 0.70-1.30 [facility] Comment on above: The validity of the calculated GFR & GFRAA in patients over 70 years has not been determined. Clinical correlation is essential. Serum or plasma urea nitroge n measurement (mass/volume)Ordered By: Chente Conn on 02-24-2024 Urea nitrogen [Mass/Vol] 15 mg/dL 7-18 [facility] Sodium levelOrdered By: Chente Conn on 02-24-2024 Sodium [Moles/Vol] 138 mmol/L 136-145 [facility] White blood cell (WBC) count Ordered By: Chente Conn on 02-24-2024 WBC (Bld) [#/Vol] 5.0 10*3/uL 4.4-11.0 [facility] Absolute neutrophil countOrd ered By: Racquel Moss on 2024 Neutrophils (Bld) [#/Vol] 5.0 10*3/uL 2.0-7.7 [facility] Basophil percentageOrdered B y: Racquel Moss on 2024 Basophils/100 WBC (Bld) 0.2 % 0-1 [facility] Blood cultureOrdered By: Jessi Moss on 2024 Bacteria identified Cx Nom (Bld) No growth in 5 days. [facility] Blood urea nitrogen (BUN)/cr eatinine ratioOrdered By: Racquel Moss on 2024 Urea nitrogen/Creatinine [Mass ratio] 24.2 mg/mg High 10-20 [facility] C-reactive protein measureme nt by high sensitivity methodOrdered By: Racquel Moss on 2024 C-Reactive Protein Extended Range 73.50 mg/L High 0.0-3.0 [facility] Comment on above: C-Reactive Protein ( CRP) provides useful information for thediagnosis, therapy and monitoring of inflammatory processesand associated diseases. For the evaluation of Relative Riskfor Cardiovascular Disease, a High Sensitivity CRP (HSCRP)should be ordered. Carbon dioxide measurementOr dered By: Racquel Moss on 2024 CO2 [Moles/Vol] 30.0 mmol/L 21.0-32.0 [facility] Chloride measurementOrdered By: Racquel Moss on 2024 Chloride [Moles/Vol] 100 mmol/L 98-107 [facility] Eosinophil percentageOrdered By: Racquel Moss on 2024 Eosinophils/100 WBC (Bld) 0.6 % 0-5 [facility] Erythrocyte distribution wid th ratioOrdered By: Remus Moss on 2024 Erythrocyte distribution width (RBC) [Ratio] 13.8 % 11.6-14.6 [facility] Erythrocyte distribution wid th standard deviationOrdered By: Remus Moss on 2024 Erythrocyte distribution width (RBC) [Entitic vol] 42.7 fL 35.1-43.9 [facility] Erythrocyte sedimentation ra teOrdered By: Remus Unggilles on 2024 ESR (Bld) [Velocity] 47 mm/h High 0-20 [facility] Estimated glomerular filtrat ion rate (GFR) AmericanOrdered By: Remus Unggilles on 2024 Estimated GFR (MDRD) Amer 379 mL/min >60 [facility] Comment on above: GFR Calc Estimation of creatinine poly aranceOrdered By: Racquel Moss on 2024 Estimated Creatinine Clearance Calc 265.33 ml/min [facility] Glomerular filtration rate ( GFR) estimationOrdered By: Racquel Moss on 2024 Estimated GFR (MDRD) Non-Af Amer 313 mL/min >60 [facility] Comment on above: Non- GFR Calc Glucose measurementOrdered B y: Racquel Moss on 2024 Glucose [Mass/Vol] 117 mg/dL High 74-106 [facility] Comment on above: Fasting Glucose resu lt from 100 to 125 mg/dL suggests IMPAIRED HOMEOSTASIS per A.D.A. criteria. Hematocrit Auto (Bld) [Volum e fraction]Ordered By: Racquel Moss on 2024 Hematocrit (Bld) [Volume fraction] 33.5 % Low 40-54 [facility] Hemoglobin measurementOrdere d By: Racquel Moss on 2024 Hemoglobin (Bld) [Mass/Vol] 10.8 g/dL Low 13.0-16.5 [facility] Immature granulocytes/100 WB C Auto (Bld)Ordered By: Racquel Moss on 2024 Immature granulocytes/100 WBC (Bld) 0.600 % 0.0-0.9 [facility] Comment on above: IG% - Immature Granu locytes (promyelocytes, myelocytes and metamyelocytes) > 1% indicates that a LEFT SHIFT is Present. Lactic acid measurementOrder ed By: Racquel Moss on 2024 Lactate [Moles/Vol] 2.0 mmol/L 0.4-2.0 [facility] Comment on above: Critical Result(s) C alled at: 18:05:46 2024 by: SHONDA REAVES. Results read back by Lakesha Steven Lymphocytes Auto (Unsp spec) [#/Vol]Ordered By: Racquel Moss on 2024 Lymphocytes (Bld) [#/Vol] 0.82 10*3/uL Low 0.83-4.5 1 [facility] Lymphocytes/100 WBC Auto (Un sp spec)Ordered By: Racquel Moss on 2024 Lymphocytes/100 WBC (Bld) 12.4 % Low 19-41 [facility] MCV (mean corpuscular volume ) determinationOrdered By: Remus Moss on 2024 MCV (RBC) [Entitic vol] 84.6 fL 80-94 [facility] Mean corpuscular hemoglobin (MCH) determinationOrdered By: Rem Unggilles on 2024 MCH (RBC) [Entitic mass] 27.3 pg 27.0-32.0 [facility] Mean corpuscular hemoglobin concentration (MCHC) determinationOrdered By: Rem Unggilles on 2024 MCHC (RBC) [Mass/Vol] 32.2 g/dL 32-36 [facility] Mean platelet volume determi nationOrdered By: Racquel Moss on 2024 Platelet mean volume (Bld) [Entitic vol] 10.0 fL 6.2-12.0 [facility] Monocyte percentageOrdered B y: Remus Moss on 2024 Monocytes/100 WBC (Bld) 11.2 % High 0-10 [facility] Neutrophil percentageOrdered By: Remus Moss on 2024 Neutrophils/100 WBC (Bld) 75.0 % High 47-70 [facility] Nucleated red blood cell per centageOrdered By: Racquel Moss on 2024 Nucleated RBC/100 WBC (Bld) [Ratio] 0 % 0-5 [facility] Platelet countOrdered By: Carmen Moss on 2024 Platelets (Bld) [#/Vol] 113 10*3/uL Low 150-450 [facility] Potassium measurementOrdered By: Racquel Moss on 2024 Potassium [Moles/Vol] 4.0 mmol/L 3.5-5.1 [facility] RBC Auto (Bld) [#/Vol]Ordere d By: Racquel Unggilles on 2024 RBC (Bld) [#/Vol] 3.96 10*6/uL Low 4.6-6.2 [facility] Serum anion gap measurementO rdered By: Racquel Moss on 2024 Anion gap [Moles/Vol] 4 mmol/L Low 5-15 [facility] Serum or plasma calcium jacinta urement (mass/volume)Ordered By: Racquel Moss on 2024 Calcium [Mass/Vol] 8.9 mg/dL 8.5-10.1 [facility] Serum or plasma creatinine m easurement (mass/volume)Ordered By: Racquel Moss on 2024 Creatinine [Mass/Vol] 0.33 mg/dL Low 0.70-1.30 [facility] Comment on above: The validity of the calculated GFR & GFRAA in patients over 70 years has not been determined. Clinical correlation is essential. Serum or plasma urea nitroge n measurement (mass/volume)Ordered By: Racquel Moss on 2024 Urea nitrogen [Mass/Vol] 8 mg/dL 7-18 [facility] Sodium levelOrdered By: Vinny Moss on 2024 Sodium [Moles/Vol] 135 mmol/L Low 136-145 [facility] White blood cell (WBC) count Ordered By: Racquel Moss on 2024 WBC (Bld) [#/Vol] 6.6 10*3/uL 4.4-11.0 [facility] Absolute neutrophil countOrd ered By: Chente Conn on 01-27-2024 Neutrophils (Bld) [#/Vol] 2.2 10*3/uL 2.0-7.7 [facility] Basophil percentageOrdered B y: Chente Conn on 01-27-2024 Basophils/100 WBC (Bld) 0.5 % 0-1 [facility] Blood urea nitrogen (BUN)/cr eatinine ratioOrdered By: Chente Conn on 01-27-2024 Urea nitrogen/Creatinine [Mass ratio] 43.3 mg/mg High 10-20 [facility] Carbon dioxide measurementOr dered By: Chente Conn on 01-27-2024 CO2 [Moles/Vol] 30.0 mmol/L 21.0-32.0 [facility] Chloride measurementOrdered By: Chente Conn on 01-27-2024 Chloride [Moles/Vol] 103 mmol/L 98-107 [facility] Eosinophil percentageOrdered By: Chente Conn on 01-27-2024 Eosinophils/100 WBC (Bld) 4.7 % 0-5 [facility] Erythrocyte distribution wid th ratioOrdered By: Chente Conn on 01-27-2024 Erythrocyte distribution width (RBC) [Ratio] 14.2 % 11.6-14.6 [facility] Erythrocyte distribution wid th standard deviationOrdered By: Chente Conn on 01-27-2024 Erythrocyte distribution width (RBC) [Entitic vol] 44.8 fL High 35.1-43.9 [facility] Estimated glomerular filtrat ion rate (GFR) AmericanOrdered By: Chente Conn on 01-27-2024 Estimated GFR (MDRD) Amer 388 mL/min >60 [facility] Comment on above: GFR Calc Glomerular filtration rate ( GFR) estimationOrdered By: Chente Conn on 01-27-2024 Estimated GFR (MDRD) Non-Af Amer 321 mL/min >60 [facility] Comment on above: Non- GFR Calc Glucose measurementOrdered B y: Chente Conn on 01-27-2024 Glucose [Mass/Vol] 99 mg/dL 74-106 [facility] Hematocrit Auto (Bld) [Volum e fraction]Ordered By: Chente Conn on 01-27-2024 Hematocrit (Bld) [Volume fraction] 33.6 % Low 40-54 [facility] Hemoglobin measurementOrdere d By: Chente Conn on 01-27-2024 Hemoglobin (Bld) [Mass/Vol] 10.5 g/dL Low 13.0-16.5 [facility] Immature granulocytes/100 WB C Auto (Bld)Ordered By: Chente Conn on 01-27-2024 Immature granulocytes/100 WBC (Bld) 0.000 % 0.0-0.9 [facility] Comment on above: IG% - Immature Granu locytes (promyelocytes, myelocytes and metamyelocytes) > 1% indicates that a LEFT SHIFT is Present. Lymphocytes Auto (Unsp spec) [#/Vol]Ordered By: Chente Conn on 01-27-2024 Lymphocytes (Bld) [#/Vol] 1.16 10*3/uL 0.83-4.5 1 [facility] Lymphocytes/100 WBC Auto (Un sp spec)Ordered By: Chente Conn on 01-27-2024 Lymphocytes/100 WBC (Bld) 28.9 % 19-41 [facility] MCV (mean corpuscular volume ) determinationOrdered By: Chente Conn on 01-27-2024 MCV (RBC) [Entitic vol] 85.9 fL 80-94 [facility] Mean corpuscular hemoglobin (MCH) determinationOrdered By: Chente Conn on 01-27-2024 MCH (RBC) [Entitic mass] 26.9 pg Low 27.0-32.0 [facility] Mean corpuscular hemoglobin concentration (MCHC) determinationOrdered By: Chente Conn on 01-27-2024 MCHC (RBC) [Mass/Vol] 31.3 g/dL Low 32-36 [facility] Mean platelet volume determi nationOrdered By: Chente Conn on 01-27-2024 Platelet mean volume (Bld) [Entitic vol] 10.3 fL 6.2-12.0 [facility] Monocyte percentageOrdered B y: Chente Conn on 01-27-2024 Monocytes/100 WBC (Bld) 10.2 % High 0-10 [facility] Neutrophil percentageOrdered By: Chente Conn on 01-27-2024 Neutrophils/100 WBC (Bld) 55.7 % 47-70 [facility] Nucleated red blood cell per centageOrdered By: Chente Conn on 01-27-2024 Nucleated RBC/100 WBC (Bld) [Ratio] 0 % 0-5 [facility] Platelet countOrdered By: Areli Conn on 01-27-2024 Platelets (Bld) [#/Vol] 161 10*3/uL 150-450 [facility] Potassium measurementOrdered By: Chente Conn on 01-27-2024 Potassium [Moles/Vol] 4.0 mmol/L 3.5-5.1 [facility] RBC Auto (Bld) [#/Vol]Ordere d By: Chente Conn on 01-27-2024 RBC (Bld) [#/Vol] 3.91 10*6/uL Low 4.6-6.2 [facility] Serum anion gap measurementO rdered By: Chente Conn on 01-27-2024 Anion gap [Moles/Vol] 7 mmol/L 5-15 [facility] Serum or plasma calcium jacinta urement (mass/volume)Ordered By: Chente Conn on 01-27-2024 Calcium [Mass/Vol] 9.0 mg/dL 8.5-10.1 [facility] Serum or plasma creatinine m easurement (mass/volume)Ordered By: Chente Conn on 01-27-2024 Creatinine [Mass/Vol] 0.32 mg/dL Low 0.70-1.30 [facility] Comment on above: The validity of the calculated GFR & GFRAA in patients over 70 years has not been determined. Clinical correlation is essential. Serum or plasma urea nitroge n measurement (mass/volume)Ordered By: Chente Conn on 01-27-2024 Urea nitrogen [Mass/Vol] 14 mg/dL 7-18 [facility] Sodium levelOrdered By: Chente Conn on 01-27-2024 Sodium [Moles/Vol] 140 mmol/L 136-145 [facility] White blood cell (WBC) count Ordered By: Chente Conn on 01-27-2024 WBC (Bld) [#/Vol] 4.0 10*3/uL Low 4.4-11.0 [facility] Absolute lymphocyte countOrd ered By: Torey Huffman on 06-14-2023 Lymphocytes Auto (Unsp spec) [#/Vol] 2.38 10*3/uL 0.83-4.51 [facility] Automated lymphocyte count a s percentage of total leukocytesOrdered By: Torey Huffman on 06-14-2023 Lymphocytes/100 WBC Auto (Unsp spec) 35.4 % 19-41 [facility] Basophil percentageOrdered B y: Torey Huffman on 06-14-2023 Basophils/100 WBC (Bld) 0.3 % 0-1 [facility] Chloride [Moles/Vol] 104 mmol/L 98-107 [facility] Eosinophils/100 WBC (Bld) 4.3 % 0-5 [facility] Glucose [Mass/Vol] 101 mg/dL 74-106 [facility] Comment on above: Fasting Glucose resu lt from 100 to 125 mg/dL suggests IMPAIRED HOMEOSTASIS per A.D.A. criteria. Hemoglobin (Bld) [Mass/Vol] 11.2 g/dL 13.0-16.5 [facility] Monocytes/100 WBC (Bld) 9.4 % 0-10 [facility] Neutrophils (Bld) [#/Vol] 3.4 10*3/uL 2.0-7.7 [facility] Neutrophils/100 WBC (Bld) 50.5 % 47-70 [facility] Potassium [Moles/Vol] 3.7 mmol/L 3.5-5.1 [facility] Sodium [Moles/Vol] 139 mmol/L 136-145 [facility] WBC (Bld) [#/Vol] 6.7 10*3/uL 4.4-11.0 [facility] Determination of erythrocyte mean corpuscular volume (MCV)Ordered By: Torey Huffman on 06-14-2023 MCV (RBC) [Entitic vol] 83.3 fL 80-94 [facility] Erythrocyte distribution wid th ratioOrdered By: Torey Huffman on 06-14-2023 Erythrocyte distribution width (RBC) [Ratio] 14.7 % 11.6-14.6 [facility] Erythrocyte distribution wid th standard deviationOrdered By: Torey Huffman on 06-14-2023 Erythrocyte distribution width (RBC) [Entitic vol] 44.5 fL 35.1-43.9 [facility] Hematocrit Auto (Bld) [Volum e fraction]Ordered By: Torey Huffman on 06-14-2023 Hematocrit (Bld) [Volume fraction] 34.4 % 40-54 [facility] Immature granulocytes/100 WB C Auto (Bld)Ordered By: Torey Huffman on 06-14-2023 Immature granulocytes/100 WBC (Bld) 0.100 % 0.0-0.9 [facility] Comment on above: IG% - Immature Granu locytes (promyelocytes, myelocytes and metamyelocytes) > 1% indicates that a LEFT SHIFT is Present. Laboratory - Chemistry and C hemistry - challengeOrdered By: Torey Huffman on 06-14-2023 CO2 [Moles/Vol] 31.0 mmol/L 21.0-32.0 [facility] Urea nitrogen/Creatinine [Mass ratio] 43.2 mg/mg 10-20 [facility] Laboratory - Hematology and Cell countsOrdered By: Torey Huffman on 06-14-2023 MCH (RBC) [Entitic mass] 27.1 pg 27.0-32.0 [facility] MCHC (RBC) [Mass/Vol] 32.6 g/dL 32-36 [facility] Nucleated RBC/100 WBC (Bld) [Ratio] 0 % 0-5 [facility] Platelet mean volume (Bld) [Entitic vol] 10.4 fL 6.2-12.0 [facility] Platelets (Bld) [#/Vol] 178 10*3/uL 150-450 [facility] No Panel InformationOrdered By: Torey Huffman on 06-14-2023 Estimated GFR (MDRD) Amer 423 mL/min >60 [facility] Comment on above: GFR Calc Estimated GFR (MDRD) Non-Af Amer 349 mL/min >60 [facility] Comment on above: Non- GFR Calc RBC Auto (Bld) [#/Vol]Ordere d By: Torey Huffman on 06-14-2023 RBC (Bld) [#/Vol] 4.13 10*6/uL 4.6-6.2 [facility] Serum or plasma calcium jacinta urement (mass/volume)Ordered By: Torey Huffman on 06-14-2023 Calcium [Mass/Vol] 8.3 mg/dL 8.5-10.1 [facility] Serum or plasma creatinine m easurement (mass/volume)Ordered By: Torey Huffman on 06-14-2023 Creatinine [Mass/Vol] 0.30 mg/dL 0.70-1.30 [facility] Comment on above: The validity of the calculated GFR & GFRAA in patients over 70 years has not been determined. Clinical correlation is essential. Serum or plasma urea nitroge n measurement (mass/volume)Ordered By: Torey Huffman on 06-14-2023 Urea nitrogen [Mass/Vol] 13 mg/dL 7-18 [facility] Thin prep Papanicolaou smear with manual screeningOrdered By: Torey Huffman on 06-14-2023 Thin prep Papanicolaou smear with manual screening 4 5-15 [facility] Absolute lymphocyte countOrd ered By: Torey Huffman on 05-17-2023 Lymphocytes Auto (Unsp spec) [#/Vol] 2.30 10*3/uL 0.83-4.51 [facility] Automated lymphocyte count a s percentage of total leukocytesOrdered By: Torey Huffman on 05-17-2023 Lymphocytes/100 WBC Auto (Unsp spec) 36.7 % 19-41 [facility] Basophil percentageOrdered B y: Torey Huffman on 05-17-2023 Basophils/100 WBC (Bld) 0.3 % 0-1 [facility] Chloride [Moles/Vol] 104 mmol/L 98-107 [facility] Eosinophils/100 WBC (Bld) 4.5 % 0-5 [facility] Glucose [Mass/Vol] 88 mg/dL 74-106 [facility] Hemoglobin (Bld) [Mass/Vol] 11.2 g/dL 13.0-16.5 [facility] Monocytes/100 WBC (Bld) 8.1 % 0-10 [facility] Neutrophils (Bld) [#/Vol] 3.1 10*3/uL 2.0-7.7 [facility] Neutrophils/100 WBC (Bld) 50.1 % 47-70 [facility] Potassium [Moles/Vol] 4.0 mmol/L 3.5-5.1 [facility] Sodium [Moles/Vol] 139 mmol/L 136-145 [facility] WBC (Bld) [#/Vol] 6.3 10*3/uL 4.4-11.0 [facility] Determination of erythrocyte mean corpuscular volume (MCV)Ordered By: Torey Huffman on 05-17-2023 MCV (RBC) [Entitic vol] 84.5 fL 80-94 [facility] Erythrocyte distribution wid th ratioOrdered By: Torey Huffman on 05-17-2023 Erythrocyte distribution width (RBC) [Ratio] 14.6 % 11.6-14.6 [facility] Erythrocyte distribution wid th standard deviationOrdered By: Torey Huffman on 05-17-2023 Erythrocyte distribution width (RBC) [Entitic vol] 45.0 fL 35.1-43.9 [facility] Hematocrit Auto (Bld) [Volum e fraction]Ordered By: Torey Huffman on 05-17-2023 Hematocrit (Bld) [Volume fraction] 36.6 % 40-54 [facility] Immature granulocytes/100 WB C Auto (Bld)Ordered By: Torey Huffman on 05-17-2023 Immature granulocytes/100 WBC (Bld) 0.300 % 0.0-0.9 [facility] Comment on above: IG% - Immature Granu locytes (promyelocytes, myelocytes and metamyelocytes) > 1% indicates that a LEFT SHIFT is Present. Laboratory - Chemistry and C hemistry - challengeOrdered By: Torey Huffman on 05-17-2023 CO2 [Moles/Vol] 31.0 mmol/L 21.0-32.0 [facility] Urea nitrogen/Creatinine [Mass ratio] 45.9 mg/mg 10-20 [facility] Laboratory - Hematology and Cell countsOrdered By: Torey Huffman on 05-17-2023 MCH (RBC) [Entitic mass] 25.9 pg 27.0-32.0 [facility] MCHC (RBC) [Mass/Vol] 30.6 g/dL 32-36 [facility] Nucleated RBC/100 WBC (Bld) [Ratio] 0 % 0-5 [facility] Platelet mean volume (Bld) [Entitic vol] 10.8 fL 6.2-12.0 [facility] Platelets (Bld) [#/Vol] 206 10*3/uL 150-450 [facility] No Panel InformationOrdered By: Torey Huffman on 05-17-2023 Estimated GFR (MDRD) Amer 416 mL/min >60 [facility] Comment on above: GFR Calc Estimated GFR (MDRD) Non-Af Amer 344 mL/min >60 [facility] Comment on above: Non- GFR Calc RBC Auto (Bld) [#/Vol]Ordere d By: Torey Huffman on 05-17-2023 RBC (Bld) [#/Vol] 4.33 10*6/uL 4.6-6.2 [facility] Serum or plasma calcium jacinta urement (mass/volume)Ordered By: Torey Huffman on 05-17-2023 Calcium [Mass/Vol] 8.6 mg/dL 8.5-10.1 [facility] Serum or plasma creatinine m easurement (mass/volume)Ordered By: Torey Huffman on 05-17-2023 Creatinine [Mass/Vol] 0.30 mg/dL 0.70-1.30 [facility] Comment on above: The validity of the calculated GFR & GFRAA in patients over 70 years has not been determined. Clinical correlation is essential. Serum or plasma urea nitroge n measurement (mass/volume)Ordered By: Torey Huffman on 05-17-2023 Urea nitrogen [Mass/Vol] 14 mg/dL 7-18 [facility] Thin prep Papanicolaou smear with manual screeningOrdered By: Torey Huffman on 05-17-2023 Thin prep Papanicolaou smear with manual screening 4 5-15 [facility] Absolute lymphocyte countOrd ered By: Torey Huffman on 04-19-2023 Lymphocytes Auto (Unsp spec) [#/Vol] 2.37 10*3/uL 0.83-4.51 [facility] Automated lymphocyte count a s percentage of total leukocytesOrdered By: Torey Huffman on 04-19-2023 Lymphocytes/100 WBC Auto (Unsp spec) 31.8 % 19-41 [facility] Basophil percentageOrdered B y: Torey Huffman on 04-19-2023 Basophils/100 WBC (Bld) 0.4 % 0-1 [facility] Chloride [Moles/Vol] 105 mmol/L 98-107 [facility] Eosinophils/100 WBC (Bld) 5.0 % 0-5 [facility] Glucose [Mass/Vol] 102 mg/dL 74-106 [facility] Comment on above: Fasting Glucose resu lt from 100 to 125 mg/dL suggests IMPAIRED HOMEOSTASIS per A.D.A. criteria. Hemoglobin (Bld) [Mass/Vol] 11.4 g/dL 13.0-16.5 [facility] Monocytes/100 WBC (Bld) 9.4 % 0-10 [facility] Neutrophils (Bld) [#/Vol] 4.0 10*3/uL 2.0-7.7 [facility] Neutrophils/100 WBC (Bld) 53.0 % 47-70 [facility] Potassium [Moles/Vol] 4.1 mmol/L 3.5-5.1 [facility] Sodium [Moles/Vol] 138 mmol/L 136-145 [facility] WBC (Bld) [#/Vol] 7.5 10*3/uL 4.4-11.0 [facility] Determination of erythrocyte mean corpuscular volume (MCV)Ordered By: Torey Huffman on 04-19-2023 MCV (RBC) [Entitic vol] 84.7 fL 80-94 [facility] Erythrocyte distribution wid th ratioOrdered By: Torey Huffman on 04-19-2023 Erythrocyte distribution width (RBC) [Ratio] 14.8 % 11.6-14.6 [facility] Erythrocyte distribution wid th standard deviationOrdered By: Torey Huffman on 04-19-2023 Erythrocyte distribution width (RBC) [Entitic vol] 45.9 fL 35.1-43.9 [facility] Hematocrit Auto (Bld) [Volum e fraction]Ordered By: Torey Huffman on 04-19-2023 Hematocrit (Bld) [Volume fraction] 37.2 % 40-54 [facility] Immature granulocytes/100 WB C Auto (Bld)Ordered By: Torey Huffman on 04-19-2023 Immature granulocytes/100 WBC (Bld) 0.400 % 0.0-0.9 [facility] Comment on above: IG% - Immature Granu locytes (promyelocytes, myelocytes and metamyelocytes) > 1% indicates that a LEFT SHIFT is Present. Laboratory - Chemistry and C hemistry - challengeOrdered By: Torey Huffman on 04-19-2023 CO2 [Moles/Vol] 28.0 mmol/L 21.0-32.0 [facility] Urea nitrogen/Creatinine [Mass ratio] 58.3 mg/mg 10-20 [facility] Laboratory - Hematology and Cell countsOrdered By: Torey Huffman on 04-19-2023 MCH (RBC) [Entitic mass] 26.0 pg 27.0-32.0 [facility] MCHC (RBC) [Mass/Vol] 30.6 g/dL 32-36 [facility] Nucleated RBC/100 WBC (Bld) [Ratio] 0 % 0-5 [facility] Platelet mean volume (Bld) [Entitic vol] 10.4 fL 6.2-12.0 [facility] Platelets (Bld) [#/Vol] 198 10*3/uL 150-450 [facility] No Panel InformationOrdered By: Torey Huffman on 04-19-2023 Estimated GFR (MDRD) Amer 410 mL/min >60 [facility] Comment on above: GFR Calc Estimated GFR (MDRD) Non-Af Amer 339 mL/min >60 [facility] Comment on above: Non- GFR Calc RBC Auto (Bld) [#/Vol]Ordere d By: Torey Huffman on 04-19-2023 RBC (Bld) [#/Vol] 4.39 10*6/uL 4.6-6.2 [facility] Serum or plasma calcium jacinta urement (mass/volume)Ordered By: Torey Huffman on 04-19-2023 Calcium [Mass/Vol] 8.8 mg/dL 8.5-10.1 [facility] Serum or plasma creatinine m easurement (mass/volume)Ordered By: Torey Huffman on 04-19-2023 Creatinine [Mass/Vol] 0.31 mg/dL 0.70-1.30 [facility] Comment on above: The validity of the calculated GFR & GFRAA in patients over 70 years has not been determined. Clinical correlation is essential. Serum or plasma urea nitroge n measurement (mass/volume)Ordered By: Torey Huffman on 04-19-2023 Urea nitrogen [Mass/Vol] 18 mg/dL 7-18 [facility] Thin prep Papanicolaou smear with manual screeningOrdered By: Torey Huffman on 04-19-2023 Thin prep Papanicolaou smear with manual screening 5 5-15 [facility] Absolute lymphocyte countOrd ered By: Anthony Russell on 04-13-2023 Lymphocytes Auto (Unsp spec) [#/Vol] 3.45 10*3/uL 0.83-4.51 [facility] Activated partial thrombopla stin time (aPTT) in platelet poor plasma by coagulation aOrdered By: Anthony Russell on 04-13-2023 aPTT Coag (PPP) [Time] 25.7 s 24.1-36.2 [facility] Automated lymphocyte count a s percentage of total leukocytesOrdered By: Anthony Russell on 04-13-2023 Lymphocytes/100 WBC Auto (Unsp spec) 43.5 % 19-41 [facility] Basophil percentageOrdered B y: Anthony Russell on 04-13-2023 Basophils/100 WBC (Bld) 0.5 % 0-1 [facility] Chloride [Moles/Vol] 103 mmol/L 98-107 [facility] Eosinophils/100 WBC (Bld) 3.7 % 0-5 [facility] Glucose [Mass/Vol] 116 mg/dL 74-106 [facility] Comment on above: Fasting Glucose resu lt from 100 to 125 mg/dL suggests IMPAIRED HOMEOSTASIS per A.D.A. criteria. Hemoglobin (Bld) [Mass/Vol] 12.4 g/dL 13.0-16.5 [facility] Monocytes/100 WBC (Bld) 7.8 % 0-10 [facility] Neutrophils (Bld) [#/Vol] 3.5 10*3/uL 2.0-7.7 [facility] Neutrophils/100 WBC (Bld) 44.2 % 47-70 [facility] Potassium [Moles/Vol] 4.0 mmol/L 3.5-5.1 [facility] Sodium [Moles/Vol] 137 mmol/L 136-145 [facility] WBC (Bld) [#/Vol] 7.9 10*3/uL 4.4-11.0 [facility] Determination of erythrocyte mean corpuscular volume (MCV)Ordered By: Anthony Russell on 04-13-2023 MCV (RBC) [Entitic vol] 82.9 fL 80-94 [facility] Erythrocyte distribution wid th ratioOrdered By: Anthony Russell on 04-13-2023 Erythrocyte distribution width (RBC) [Ratio] 14.9 % 11.6-14.6 [facility] Erythrocyte distribution wid th standard deviationOrdered By: Anthony Russell on 04-13-2023 Erythrocyte distribution width (RBC) [Entitic vol] 44.8 fL 35.1-43.9 [facility] Hematocrit Auto (Bld) [Volum e fraction]Ordered By: Anthony Russell on 04-13-2023 Hematocrit (Bld) [Volume fraction] 40.2 % 40-54 [facility] Immature granulocytes/100 WB C Auto (Bld)Ordered By: Anthony Russell on 04-13-2023 Immature granulocytes/100 WBC (Bld) 0.300 % 0.0-0.9 [facility] Comment on above: IG% - Immature Granu locytes (promyelocytes, myelocytes and metamyelocytes) > 1% indicates that a LEFT SHIFT is Present. Laboratory - Chemistry and C hemistry - challengeOrdered By: Anthony Russell on 04-13-2023 CO2 [Moles/Vol] 24.0 mmol/L 21.0-32.0 [facility] Urea nitrogen/Creatinine [Mass ratio] 39.7 mg/mg 10-20 [facility] Laboratory - CoagulationOrde red By: Anthony Russell on 04-13-2023 INR Coag (Bld) [Relative time] 1.0 {INR} [facility] PT Coag (PPP) [Time] 13.3 s 11.7-14.9 [facility] Laboratory - Hematology and Cell countsOrdered By: Anthony Russell on 04-13-2023 MCH (RBC) [Entitic mass] 25.6 pg 27.0-32.0 [facility] MCHC (RBC) [Mass/Vol] 30.8 g/dL 32-36 [facility] Nucleated RBC/100 WBC (Bld) [Ratio] 0 % 0-5 [facility] Platelet mean volume (Bld) [Entitic vol] 10.2 fL 6.2-12.0 [facility] Platelets (Bld) [#/Vol] 216 10*3/uL 150-450 [facility] No Panel InformationOrdered By: Anthony Russell on 04-13-2023 D-Dimer Quantitative (PE/DVT) < 0.27 FEU/ug/m 0.27-0.49 [facility] Comment on above: NORMAL D-Dimer level (<0.50) indicates no DVT or PE. Estimated Creatinine Clearance Calc 176.92 ml/min [facility] Estimated GFR (MDRD) Amer 248 mL/min >60 [facility] Comment on above: GFR Calc Estimated GFR (MDRD) Non-Af Amer 205 mL/min >60 [facility] Comment on above: Non- GFR Calc Troponin I High Sensitivity < 3 pg/mL 3.0-78.0 [facility] Comment on above: Please Note: New Suha t Units and Gender Specific Reference Ranges. For more information see Policy Stat Procedure [place] High Sensitivity Troponin (TNIH) and attachments. RBC Auto (Bld) [#/Vol]Ordere d By: Anthony Russell on 04-13-2023 RBC (Bld) [#/Vol] 4.85 10*6/uL 4.6-6.2 [facility] Serum or plasma calcium jacinta urement (mass/volume)Ordered By: Anthony Russell on 04-13-2023 Calcium [Mass/Vol] 9.2 mg/dL 8.5-10.1 [facility] Serum or plasma creatinine m easurement (mass/volume)Ordered By: Anthony Russell on 04-13-2023 Creatinine [Mass/Vol] 0.48 mg/dL 0.70-1.30 [facility] Comment on above: The validity of the calculated GFR & GFRAA in patients over 70 years has not been determined. Clinical correlation is essential. Serum or plasma urea nitroge n measurement (mass/volume)Ordered By: Anthony Russell on 04-13-2023 Urea nitrogen [Mass/Vol] 19 mg/dL 7-18 [facility] Thin prep Papanicolaou smear with manual screeningOrdered By: Anthony Russell on 04-13-2023 Thin prep Papanicolaou smear with manual screening 10 5-15 [facility] Absolute lymphocyte countOrd ered By: Lucia Dillard on 03-24-2023 Lymphocytes Auto (Unsp spec) [#/Vol] 1.76 10*3/uL 0.83-4.51 [facility] Automated lymphocyte count a s percentage of total leukocytesOrdered By: Lucia Dillard on 03-24-2023 Lymphocytes/100 WBC Auto (Unsp spec) 25.6 % 19-41 [facility] Basophil percentageOrdered B y: Lucia Dillard on 03-24-2023 Basophil percentage 10.8 g/dL 13.0-16.5 [facility] Basophil percentage 91 mg/dL 74-106 [facility] Basophil percentage 7.5 g/dL 6.4-8.2 [facility] Basophil percentage 0.30 mg/dL 0.20-1.00 [facility] Basophil percentage 137 mmol/L 136-145 [facility] Basophil percentage 3.6 mmol/L 3.5-5.1 [facility] Basophil percentage 106 mmol/L 98-107 [facility] Basophils (Bld) [#/Vol] 6.9 10*3/uL 4.4-11.0 [facility] Basophils (Bld) [#/Vol] 4.3 10*3/uL 2.0-7.7 [facility] Basophils/100 WBC (Bld) 62.2 % 47-70 [facility] Basophils/100 WBC (Bld) 8.9 % 0-10 [facility] Basophils/100 WBC (Bld) 2.9 % 0-5 [facility] Basophils/100 WBC (Bld) 0.3 % 0-1 [facility] Bilirubin [Mass/Vol] 0.30 mg/dL 0.20-1.00 [facility] Comment on above: For patients on eltr ombopag therapy, use of Dimension [place] TBIL is not recommended. Chloride [Moles/Vol] 106 mmol/L 98-107 [facility] Eosinophils/100 WBC (Bld) 2.9 % 0-5 [facility] Glucose [Mass/Vol] 91 mg/dL 74-106 [facility] Hemoglobin (Bld) [Mass/Vol] 10.8 g/dL 13.0-16.5 [facility] Monocytes/100 WBC (Bld) 8.9 % 0-10 [facility] Neutrophils (Bld) [#/Vol] 4.3 10*3/uL 2.0-7.7 [facility] Neutrophils/100 WBC (Bld) 62.2 % 47-70 [facility] Potassium [Moles/Vol] 3.6 mmol/L 3.5-5.1 [facility] Protein [Mass/Vol] 7.5 g/dL 6.4-8.2 [facility] Sodium [Moles/Vol] 137 mmol/L 136-145 [facility] WBC (Bld) [#/Vol] 6.9 10*3/uL 4.4-11.0 [facility] Basophil percentageOrdered B y: Dominic Méndez on 03-24-2023 Basophil percentage 0.5 mmol/L 0.4-2.0 [facility] Lactate [Moles/Vol] 0.5 mmol/L 0.4-2.0 [facility] Determination of erythrocyte mean corpuscular volume (MCV)Ordered By: Lucia Dillard on 03-24-2023 MCV (RBC) [Entitic vol] 84.4 fL 80-94 [facility] Erythrocyte distribution wid th ratioOrdered By: Lucia Dillard on 03-24-2023 Erythrocyte distribution width (RBC) [Ratio] 14.9 % 11.6-14.6 [facility] Erythrocyte distribution wid th standard deviationOrdered By: Lucia Dillard on 03-24-2023 Erythrocyte distribution width (RBC) [Entitic vol] 46.0 fL 35.1-43.9 [facility] Hematocrit Auto (Bld) [Volum e fraction]Ordered By: Lucia Dillard on 03-24-2023 Hematocrit (Bld) [Volume fraction] 35.2 % 40-54 [facility] Immature granulocytes/100 WB C Auto (Bld)Ordered By: Lucia Dillard on 03-24-2023 Immature granulocytes/100 WBC (Bld) 0.100 % 0.0-0.9 [facility] Comment on above: IG% - Immature Granu locytes (promyelocytes, myelocytes and metamyelocytes) > 1% indicates that a LEFT SHIFT is Present. Laboratory - Chemistry and C hemistry - challengeOrdered By: Lucia Dillard on 03-24-2023 Albumin/Globulin [Mass ratio] 0.7 {ratio} 0.9-2.4 [facility] ALP [Catalytic activity/Vol] 153 U/L 45-117 [facility] ALT [Catalytic activity/Vol] 25 U/L 16-61 [facility] CO2 [Moles/Vol] 29.0 mmol/L 21.0-32.0 [facility] Globulin (S) [Mass/Vol] 4.4 g/dL 2.2-4.2 [facility] Urea nitrogen/Creatinine [Mass ratio] 74.7 mg/mg 10-20 [facility] Laboratory - Hematology and Cell countsOrdered By: Lucia Dillard on 03-24-2023 MCH (RBC) [Entitic mass] 25.9 pg 27.0-32.0 [facility] MCHC (RBC) [Mass/Vol] 30.7 g/dL 32-36 [facility] Nucleated RBC/100 WBC (Bld) [Ratio] 0 % 0-5 [facility] Platelets (Bld) [#/Vol] 181 10*3/uL 150-450 [facility] No Panel InformationOrdered By: Lucia Dillard on 03-24-2023 Estimated Creatinine Clearance Calc 351.31 ml/min [facility] Estimated GFR (MDRD) Amer 547 mL/min >60 [facility] Comment on above: GFR Calc Estimated GFR (MDRD) Non-Af Amer 452 mL/min >60 [facility] Comment on above: Non- GFR Calc 25.9 pg 27.0-32.0 [facility] 30.7 g/dL 32-36 [facility] 181 K/mm3 150-450 [facility] 0 % 0-5 [facility] 452 mL/min >60 [facility] 547 mL/min >60 [facility] 351.31 ml/min [facility] 74.7 RATIO 10-20 [facility] 4.4 g/dL 2.2-4.2 [facility] 0.7 RATIO 0.9-2.4 [facility] 153 U/L 45-117 [facility] 25 U/L 16-61 [facility] 29.0 mmol/L 21.0-32.0 [facility] Platelet mean volume Jm-Ec ker (Bld) [Entitic vol]Ordered By: Lucia Dillard on 03-24-2023 Platelet mean volume (Bld) [Entitic vol] 10.4 fL 6.2-12.0 [facility] RBC Auto (Bld) [#/Vol]Ordere d By: Lucia Dillard on 03-24-2023 RBC (Bld) [#/Vol] 4.17 10*6/uL 4.6-6.2 [facility] Serum or plasma calcium jacinta urement (mass/volume)Ordered By: Lucia Dillard on 03-24-2023 Calcium [Mass/Vol] 8.2 mg/dL 8.5-10.1 [facility] Serum or plasma creatinine m easurement (mass/volume)Ordered By: Lucia Dillard on 03-24-2023 Creatinine [Mass/Vol] 0.24 mg/dL 0.70-1.30 [facility] Comment on above: The validity of the calculated GFR & GFRAA in patients over 70 years has not been determined. Clinical correlation is essential. Serum or plasma urea nitroge n measurement (mass/volume)Ordered By: Lucia Dillard on 03-24-2023 Urea nitrogen [Mass/Vol] 18 mg/dL 7-18 [facility] Thin prep Papanicolaou smear with manual screeningOrdered By: Lucia Dillard on 03-24-2023 Thin prep Papanicolaou smear with manual screening 3.1 g/dL 3.2-5.0 [facility] Thin prep Papanicolaou smear with manual screening 14 U/L 15-37 [facility] Thin prep Papanicolaou smear with manual screening 2 5-15 [facility] Absolute lymphocyte countOrd ered By: Dominic Méndez on 03-23-2023 Lymphocytes Auto (Unsp spec) [#/Vol] 2.81 10*3/uL 0.83-4.51 [facility] Activated partial thrombopla stin time (aPTT) in platelet poor plasma by coagulation aOrdered By: Dominic Méndez on 03-23-2023 aPTT Coag (PPP) [Time] 31.1 s 24.1-36.2 [facility] Automated lymphocyte count a s percentage of total leukocytesOrdered By: Dominic Méndez on 03-23-2023 Lymphocytes/100 WBC Auto (Unsp spec) 21.7 % 19-41 [facility] Basophil percentageOrdered B y: Dominic Méndez on 03-23-2023 Bilirubin [Mass/Vol] 0.20 mg/dL 0.20-1.00 [facility] Comment on above: For patients on eltr ombopag therapy, use of Dimension [place] TBIL is not recommended. Chloride [Moles/Vol] 104 mmol/L 98-107 [facility] Glucose [Mass/Vol] 123 mg/dL 74-106 [facility] Comment on above: Fasting Glucose resu lt from 100 to 125 mg/dL suggests IMPAIRED HOMEOSTASIS per A.D.A. criteria. Potassium [Moles/Vol] 3.7 mmol/L 3.5-5.1 [facility] Protein [Mass/Vol] 8.8 g/dL 6.4-8.2 [facility] Sodium [Moles/Vol] 135 mmol/L 136-145 [facility] Basophils/100 WBC (Bld) 0.2 % 0-1 [facility] Eosinophils/100 WBC (Bld) 2.0 % 0-5 [facility] Hemoglobin (Bld) [Mass/Vol] 13.1 g/dL 13.0-16.5 [facility] Lactate [Moles/Vol] 5.3 mmol/L 0.4-2.0 [facility] Comment on above: Critical Result(s) C alled at: 13:12:15 03/23/2023 by: Moraima Simmons. Results read back by same. Monocytes/100 WBC (Bld) 5.1 % 0-10 [facility] Neutrophils (Bld) [#/Vol] 9.1 10*3/uL 2.0-7.7 [facility] Neutrophils/100 WBC (Bld) 70.6 % 47-70 [facility] WBC (Bld) [#/Vol] 13.0 10*3/uL 4.4-11.0 [facility] Culture, urineOrdered By: Champ Méndez on 03-23-2023 Bacteria identified Cx Nom (U) Culture exhibits no growth. [facility] Bacteria identified Cx Nom (U) Culture exhibits no growth. [facility] Determination of erythrocyte mean corpuscular volume (MCV)Ordered By: Dominic Méndez on 03-23-2023 MCV (RBC) [Entitic vol] 83.2 fL 80-94 [facility] Erythrocyte distribution wid th ratioOrdered By: Dominic Méndez on 03-23-2023 Erythrocyte distribution width (RBC) [Ratio] 14.8 % 11.6-14.6 [facility] Erythrocyte distribution wid th standard deviationOrdered By: Dominic Méndez on 03-23-2023 Erythrocyte distribution width (RBC) [Entitic vol] 45.1 fL 35.1-43.9 [facility] Hematocrit Auto (Bld) [Volum e fraction]Ordered By: Dominic Méndez on 03-23-2023 Hematocrit (Bld) [Volume fraction] 42.2 % 40-54 [facility] Immature granulocytes/100 WB C Auto (Bld)Ordered By: Dominic Méndez on 03-23-2023 Immature granulocytes/100 WBC (Bld) 0.400 % 0.0-0.9 [facility] Comment on above: IG% - Immature Granu locytes (promyelocytes, myelocytes and metamyelocytes) > 1% indicates that a LEFT SHIFT is Present. International normalized rat io (INR) calculationOrdered By: Dominic Méndez on 03-23-2023 INR Coag (PPP) [Relative time] 1.0 {INR} [facility] Laboratory - Chemistry and C hemistry - challengeOrdered By: Dominic Méndez on 03-23-2023 Albumin/Globulin [Mass ratio] 0.7 {ratio} 0.9-2.4 [facility] ALP [Catalytic activity/Vol] 169 U/L 45-117 [facility] ALT [Catalytic activity/Vol] 29 U/L 16-61 [facility] CO2 [Moles/Vol] 26.0 mmol/L 21.0-32.0 [facility] Globulin (S) [Mass/Vol] 5.2 g/dL 2.2-4.2 [facility] Urea nitrogen/Creatinine [Mass ratio] 46.1 mg/mg 10-20 [facility] Laboratory - CoagulationOrde red By: Dominic Méndez on 03-23-2023 PT Coag (PPP) [Time] 12.9 s 11.7-14.9 [facility] - Hematology and Cell countsOrdered By: Dominic Méndez on 03-23-2023 MCH (RBC) [Entitic mass] 25.8 pg 27.0-32.0 [facility] MCHC (RBC) [Mass/Vol] 31.0 g/dL 32-36 [facility] Nucleated RBC/100 WBC (Bld) [Ratio] 0 % 0-5 [facility] Platelets (Bld) [#/Vol] 229 10*3/uL 150-450 [facility] - Microbiology an d Antimicrobial susceptibilityOrdered By: Dominic Méndez on 03-23-2023 Bacteria identified Cx Nom (Bld) No growth in 5 days. [facility] Bacteria identified Cx Nom (Bld) No growth in 5 days. [facility] No Panel InformationOrdered By: Dominic Méndez on 03-23-2023 Estimated Creatinine Clearance Calc 186.40 ml/min [facility] Estimated GFR (MDRD) Amer 262 mL/min >60 [facility] Comment on above: GFR Calc Estimated GFR (MDRD) Non-Af Amer 217 mL/min >60 [facility] Comment on above: Non- GFR Calc 12.9 SECONDS 11.7-14.9 [facility] Platelet mean volume Jm-Ec ker (Bld) [Entitic vol]Ordered By: Dominic Méndez on 03-23-2023 Platelet mean volume (Bld) [Entitic vol] 10.1 fL 6.2-12.0 [facility] RBC Auto (Bld) [#/Vol]Ordere d By: Dominic Méndez on 03-23-2023 RBC (Bld) [#/Vol] 5.07 10*6/uL 4.6-6.2 [facility] Respiratory pathogens detect ion panel by molecular detection methodOrdered By: Dominic Méndez on 03-23-2023 Respiratory pathogens DNA and RNA panel YAYO+probe (Resp) [facility] Respiratory pathogens DNA and RNA panel YAYO+probe (Resp) [facility] Serum or plasma calcium jacinta urement (mass/volume)Ordered By: Dominic Méndez on 03-23-2023 Calcium [Mass/Vol] 8.8 mg/dL 8.5-10.1 [facility] Serum or plasma creatinine m easurement (mass/volume)Ordered By: Dominic Méndez on 03-23-2023 Creatinine [Mass/Vol] 0.46 mg/dL 0.70-1.30 [facility] Comment on above: The validity of the calculated GFR & GFRAA in patients over 70 years has not been determined. Clinical correlation is essential. Serum or plasma urea nitroge n measurement (mass/volume)Ordered By: Dominic Méndez on 03-23-2023 Urea nitrogen [Mass/Vol] 21 mg/dL 7-18 [facility] Thin prep Papanicolaou smear with manual screeningOrdered By: Dominic Méndez on 03-23-2023 Thin prep Papanicolaou smear with manual screening 3.6 g/dL 3.2-5.0 [facility] Thin prep Papanicolaou smear with manual screening 16 U/L 15-37 [facility] Thin prep Papanicolaou smear with manual screening 5 5-15 [facility] Absolute lymphocyte countOrd ered By: Torey Huffman on 03-01-2023 Lymphocytes Auto (Unsp spec) [#/Vol] 2.53 10*3/uL 0.83-4.51 [facility] Basophil percentageOrdered B y: Torey Huffman on 03-01-2023 Basophil percentage 93 mg/dL 74-106 [facility] Basophil percentage 140 mmol/L 136-145 [facility] Basophil percentage 3.8 mmol/L 3.5-5.1 [facility] Basophil percentage 105 mmol/L 98-107 [facility] Basophils (Bld) [#/Vol] 7.0 10*3/uL 4.4-11.0 [facility] Basophils (Bld) [#/Vol] 3.5 10*3/uL 2.0-7.7 [facility] Basophils/100 WBC (Bld) 0.3 % 0-1 [facility] Basophils/100 WBC (Bld) 49.5 % 47-70 [facility] Basophils/100 WBC (Bld) 4.9 % 0-5 [facility] Chloride [Moles/Vol] 105 mmol/L 98-107 [facility] Eosinophils/100 WBC (Bld) 4.9 % 0-5 [facility] Glucose [Mass/Vol] 93 mg/dL 74-106 [facility] Neutrophils (Bld) [#/Vol] 3.5 10*3/uL 2.0-7.7 [facility] Neutrophils/100 WBC (Bld) 49.5 % 47-70 [facility] Potassium [Moles/Vol] 3.8 mmol/L 3.5-5.1 [facility] Sodium [Moles/Vol] 140 mmol/L 136-145 [facility] WBC (Bld) [#/Vol] 7.0 10*3/uL 4.4-11.0 [facility] Blood erythrocytes count (nu mber/volume)Ordered By: Torey Huffman on 03-01-2023 RBC (Bld) [#/Vol] 4.30 10*6/uL 4.6-6.2 [facility] Blood hemoglobin measurement (mass/volume)Ordered By: Torey Huffman on 03-01-2023 Hemoglobin (Bld) [Mass/Vol] 11.1 g/dL 13.0-16.5 [facility] Blood lymphocytes/100 leukoc ytesOrdered By: Torey Huffman on 03-01-2023 Lymphocytes/100 WBC (Bld) 36.3 % 19-41 [facility] Blood monocytes/100 leukocyt esOrdered By: Torey Huffman on 03-01-2023 Monocytes/100 WBC (Bld) 8.9 % 0-10 [facility] Blood platelet mean volumeOr dered By: Torey Huffman on 03-01-2023 Platelet mean volume (Bld) [Entitic vol] 11.0 fL 6.2-12.0 [facility] Determination of erythrocyte mean corpuscular volume (MCV)Ordered By: Torey Huffman on 03-01-2023 MCV (RBC) [Entitic vol] 83.5 fL 80-94 [facility] Hematocrit Auto (Bld) [Volum e fraction]Ordered By: Torey Huffman on 03-01-2023 Hematocrit (Bld) [Volume fraction] 35.9 % 40-54 [facility] Laboratory - Chemistry and C hemistry - challengeOrdered By: Torey Huffman on 03-01-2023 CO2 [Moles/Vol] 28.0 mmol/L 21.0-32.0 [facility] Urea nitrogen/Creatinine [Mass ratio] 60.6 mg/mg 10-20 [facility] - Hematology and Cell countsOrdered By: Torey Huffman on 03-01-2023 Erythrocyte distribution width (RBC) [Entitic vol] 44.3 fL 35.1-43.9 [facility] Erythrocyte distribution width (RBC) [Ratio] 14.6 % 11.6-14.6 [facility] Immature granulocytes/100 WBC (Bld) 0.100 % 0.0-0.9 [facility] Comment on above: IG% - Immature Granu locytes (promyelocytes, myelocytes and metamyelocytes) > 1% indicates that a LEFT SHIFT is Present. MCH (RBC) [Entitic mass] 25.8 pg 27.0-32.0 [facility] Nucleated RBC/100 WBC (Bld) [Ratio] 0 % 0-5 [facility] MCHC Auto (RBC) [Mass/Vol]Or dered By: Torey Huffman on 03-01-2023 MCHC (RBC) [Mass/Vol] 30.9 g/dL 32-36 [facility] No Panel InformationOrdered By: Torey Huffman on 03-01-2023 Estimated GFR (MDRD) Amer 308 mL/min >60 [facility] Comment on above: GFR Calc Estimated GFR (MDRD) Non-Af Amer 255 mL/min >60 [facility] Comment on above: Non- GFR Calc 25.8 pg 27.0-32.0 [facility] 14.6 % 11.6-14.6 [facility] 44.3 fl 35.1-43.9 [facility] 0.100 % 0.0-0.9 [facility] 0 % 0-5 [facility] 255 mL/min >60 [facility] 308 mL/min >60 [facility] 60.6 RATIO 10-20 [facility] 28.0 mmol/L 21.0-32.0 [facility] Platelets bldOrdered By: Mellissa Huffman on 03-01-2023 Platelets (Bld) [#/Vol] 202 10*3/uL 150-450 [facility] Serum or plasma calcium jacinta urement (mass/volume)Ordered By: Torey Huffman on 03-01-2023 Calcium [Mass/Vol] 8.7 mg/dL 8.5-10.1 [facility] Serum or plasma creatinine m easurement (mass/volume)Ordered By: Torey Huffman on 03-01-2023 Creatinine [Mass/Vol] 0.40 mg/dL 0.70-1.30 [facility] Comment on above: The validity of the calculated GFR & GFRAA in patients over 70 years has not been determined. Clinical correlation is essential. Serum or plasma urea nitroge n measurement (mass/volume)Ordered By: Torey Huffman on 03-01-2023 Urea nitrogen [Mass/Vol] 24 mg/dL 7-18 [facility] Thin prep Papanicolaou smear with manual screeningOrdered By: Torey Huffman on 03-01-2023 Thin prep Papanicolaou smear with manual screening 7 5-15 [facility] Absolute lymphocyte countOrd ered By: Torey Huffman on 02-03-2023 Lymphocytes Auto (Unsp spec) [#/Vol] 2.02 10*3/uL 0.83-4.51 [facility] Basophil percentageOrdered B y: Torey Huffman on 02-03-2023 Basophil percentage 103 mg/dL 74-106 [facility] Basophil percentage 139 mmol/L 136-145 [facility] Basophil percentage 3.7 mmol/L 3.5-5.1 [facility] Basophil percentage 105 mmol/L 98-107 [facility] Basophils (Bld) [#/Vol] 5.9 10*3/uL 4.4-11.0 [facility] Basophils (Bld) [#/Vol] 3.0 10*3/uL 2.0-7.7 [facility] Basophils/100 WBC (Bld) 0.3 % 0-1 [facility] Basophils/100 WBC (Bld) 50.5 % 47-70 [facility] Basophils/100 WBC (Bld) 5.6 % 0-5 [facility] Chloride [Moles/Vol] 105 mmol/L 98-107 [facility] Eosinophils/100 WBC (Bld) 5.6 % 0-5 [facility] Glucose [Mass/Vol] 103 mg/dL 74-106 [facility] Comment on above: Fasting Glucose resu lt from 100 to 125 mg/dL suggests IMPAIRED HOMEOSTASIS per A.D.A. criteria. Neutrophils (Bld) [#/Vol] 3.0 10*3/uL 2.0-7.7 [facility] Neutrophils/100 WBC (Bld) 50.5 % 47-70 [facility] Potassium [Moles/Vol] 3.7 mmol/L 3.5-5.1 [facility] Sodium [Moles/Vol] 139 mmol/L 136-145 [facility] WBC (Bld) [#/Vol] 5.9 10*3/uL 4.4-11.0 [facility] Blood erythrocytes count (nu mber/volume)Ordered By: Torey Huffman on 02-03-2023 RBC (Bld) [#/Vol] 3.99 10*6/uL 4.6-6.2 [facility] Blood hemoglobin measurement (mass/volume)Ordered By: Torey Huffman on 02-03-2023 Hemoglobin (Bld) [Mass/Vol] 10.3 g/dL 13.0-16.5 [facility] Blood lymphocytes/100 leukoc ytesOrdered By: Torey Huffman on 02-03-2023 Lymphocytes/100 WBC (Bld) 34.4 % 19-41 [facility] Blood monocytes/100 leukocyt esOrdered By: Torey Huffman on 02-03-2023 Monocytes/100 WBC (Bld) 9.0 % 0-10 [facility] Blood platelet mean volumeOr dered By: Torey Huffman on 02-03-2023 Platelet mean volume (Bld) [Entitic vol] 11.0 fL 6.2-12.0 [facility] Determination of erythrocyte mean corpuscular volume (MCV)Ordered By: Torey Huffman on 02-03-2023 MCV (RBC) [Entitic vol] 83.0 fL 80-94 [facility] Hematocrit Auto (Bld) [Volum e fraction]Ordered By: Torey Huffman on 02-03-2023 Hematocrit (Bld) [Volume fraction] 33.1 % 40-54 [facility] Laboratory - Chemistry and C hemistry - challengeOrdered By: Torey Huffman on 02-03-2023 CO2 [Moles/Vol] 30.0 mmol/L 21.0-32.0 [facility] Urea nitrogen/Creatinine [Mass ratio] 51.6 mg/mg 10-20 [facility] - Hematology and Cell countsOrdered By: Torey Huffman on 02-03-2023 Erythrocyte distribution width (RBC) [Entitic vol] 43.8 fL 35.1-43.9 [facility] Erythrocyte distribution width (RBC) [Ratio] 14.4 % 11.6-14.6 [facility] Immature granulocytes/100 WBC (Bld) 0.200 % 0.0-0.9 [facility] Comment on above: IG% - Immature Granu locytes (promyelocytes, myelocytes and metamyelocytes) > 1% indicates that a LEFT SHIFT is Present. MCH (RBC) [Entitic mass] 25.8 pg 27.0-32.0 [facility] Nucleated RBC/100 WBC (Bld) [Ratio] 0 % 0-5 [facility] MCHC Auto (RBC) [Mass/Vol]Or dered By: Torey Huffman on 02-03-2023 MCHC (RBC) [Mass/Vol] 31.1 g/dL 32-36 [facility] No Panel InformationOrdered By: Torey Huffman on 02-03-2023 Estimated GFR (MDRD) Amer 409 mL/min >60 [facility] Comment on above: GFR Calc Estimated GFR (MDRD) Non-Af Amer 338 mL/min >60 [facility] Comment on above: Non- GFR Calc 25.8 pg 27.0-32.0 [facility] 14.4 % 11.6-14.6 [facility] 43.8 fl 35.1-43.9 [facility] 0.200 % 0.0-0.9 [facility] 0 % 0-5 [facility] 338 mL/min >60 [facility] 409 mL/min >60 [facility] 51.6 RATIO 10-20 [facility] 30.0 mmol/L 21.0-32.0 [facility] Platelets bldOrdered By: Mellissa Huffman on 02-03-2023 Platelets (Bld) [#/Vol] 172 10*3/uL 150-450 [facility] Serum or plasma calcium jacinta urement (mass/volume)Ordered By: Torey Huffman on 02-03-2023 Calcium [Mass/Vol] 8.4 mg/dL 8.5-10.1 [facility] Serum or plasma creatinine m easurement (mass/volume)Ordered By: Torey Huffman on 02-03-2023 Creatinine [Mass/Vol] 0.31 mg/dL 0.70-1.30 [facility] Comment on above: The validity of the calculated GFR & GFRAA in patients over 70 years has not been determined. Clinical correlation is essential. Serum or plasma urea nitroge n measurement (mass/volume)Ordered By: Torey Huffman on 02-03-2023 Urea nitrogen [Mass/Vol] 16 mg/dL 7-18 [facility] Thin prep Papanicolaou smear with manual screeningOrdered By: Torey Huffman on 02-03-2023 Thin prep Papanicolaou smear with manual screening 4 5-15 [facility] Absolute lymphocyte countOrd ered By: Amena Smith on 01-16-2023 Lymphocytes Auto (Unsp spec) [#/Vol] 1.47 10*3/uL 0.83-4.51 [facility] Basophil percentageOrdered B y: Amena Smith on 01-16-2023 Basophil percentage 0-5 SEEN /hpf 0-5 [facility] Basophil percentage 97 mg/dL 74-106 [facility] Basophil percentage 137 mmol/L 136-145 [facility] Basophil percentage 3.7 mmol/L 3.5-5.1 [facility] Basophil percentage 105 mmol/L 98-107 [facility] Basophil percentage 0.9 mmol/L 0.4-2.0 [facility] Basophils (Bld) [#/Vol] 8.7 10*3/uL 4.4-11.0 [facility] Basophils (Bld) [#/Vol] 6.6 10*3/uL 2.0-7.7 [facility] Basophils/100 WBC (Bld) 0.1 % 0-1 [facility] Basophils/100 WBC (Bld) 75.2 % 47-70 [facility] Basophils/100 WBC (Bld) 1.1 % 0-5 [facility] Chloride [Moles/Vol] 105 mmol/L 98-107 [facility] Eosinophils/100 WBC (Bld) 1.1 % 0-5 [facility] Glucose [Mass/Vol] 97 mg/dL 74-106 [facility] Lactate [Moles/Vol] 0.9 mmol/L 0.4-2.0 [facility] Neutrophils (Bld) [#/Vol] 6.6 10*3/uL 2.0-7.7 [facility] Neutrophils/100 WBC (Bld) 75.2 % 47-70 [facility] Potassium [Moles/Vol] 3.7 mmol/L 3.5-5.1 [facility] Sodium [Moles/Vol] 137 mmol/L 136-145 [facility] WBC (Bld) [#/Vol] 8.7 10*3/uL 4.4-11.0 [facility] Bilirubin Test strip Ql (U)O rdered By: Amena Smith on 01-16-2023 Bilirubin Ql (U) Negative Negative [facility] Blood erythrocytes count (nu mber/volume)Ordered By: Amena Smith on 01-16-2023 RBC (Bld) [#/Vol] 4.46 10*6/uL 4.6-6.2 [facility] Blood hemoglobin measurement (mass/volume)Ordered By: Amena Smith on 01-16-2023 Hemoglobin (Bld) [Mass/Vol] 11.6 g/dL 13.0-16.5 [facility] Blood lymphocytes/100 leukoc ytesOrdered By: Amena Smith on 01-16-2023 Lymphocytes/100 WBC (Bld) 16.8 % 19-41 [facility] Blood monocytes/100 leukocyt esOrdered By: Amena Smith on 01-16-2023 Monocytes/100 WBC (Bld) 6.5 % 0-10 [facility] Blood platelet mean volumeOr dered By: Amena Smith on 01-16-2023 Platelet mean volume (Bld) [Entitic vol] 10.2 fL 6.2-12.0 [facility] Culture, urineOrdered By: Елена Smith on 01-16-2023 Bacteria identified Cx Nom (U) Culture exhibits no growth. [facility] Determination of erythrocyte mean corpuscular volume (MCV)Ordered By: Amena Smith on 01-16-2023 MCV (RBC) [Entitic vol] 84.1 fL 80-94 [facility] Hematocrit Auto (Bld) [Volum e fraction]Ordered By: Amena Smith on 01-16-2023 Hematocrit (Bld) [Volume fraction] 37.5 % 40-54 [facility] Influenza virus A and B and SARS-CoV-2 (COVID-19) Ag panel - Upper respiratory specimOrdered By: Amena Smith on 01-16-2023 SARS-CoV-2 (COVID-19) RNA YAYO+probe Ql (Resp) [facility] Ketones Test strip Ql (U)Ord ered By: Amena Smith on 01-16-2023 Ketones Ql (U) 5 mg/dl Negative [facility] Laboratory - Chemistry and C hemistry - challengeOrdered By: Amena Smith on 01-16-2023 CO2 [Moles/Vol] 28.0 mmol/L 21.0-32.0 [facility] Urea nitrogen/Creatinine [Mass ratio] 69.5 mg/mg 10-20 [facility] - Hematology and Cell countsOrdered By: Amena Smith on 01-16-2023 Erythrocyte distribution width (RBC) [Entitic vol] 44.5 fL 35.1-43.9 [facility] Erythrocyte distribution width (RBC) [Ratio] 14.6 % 11.6-14.6 [facility] Immature granulocytes/100 WBC (Bld) 0.300 % 0.0-0.9 [facility] Comment on above: IG% - Immature Granu locytes (promyelocytes, myelocytes and metamyelocytes) > 1% indicates that a LEFT SHIFT is Present. MCH (RBC) [Entitic mass] 26.0 pg 27.0-32.0 [facility] Nucleated RBC/100 WBC (Bld) [Ratio] 0 % 0-5 [facility] Laboratory - Microbiology an d Antimicrobial susceptibilityOrdered By: Amena Smith on 01-16-2023 Bacteria identified Cx Nom (Bld) No growth in 5 days. [facility] MCHC Auto (RBC) [Mass/Vol]Or dered By: Amena Smith on 01-16-2023 MCHC (RBC) [Mass/Vol] 30.9 g/dL 32-36 [facility] Mucus LM Ql (Urine sed)Order ed By: Amena Smith on 01-16-2023 Mucus Ql (Urine sed) 0 SEEN /hpf [facility] Nitrite Test strip Ql (U)Ord ered By: Amena Smith on 01-16-2023 Nitrite Ql (U) Negative Negative [facility] No Panel InformationOrdered By: Amena Smith on 01-16-2023 No growth in 5 days. [facility] Estimated Creatinine Clearance Calc 231.48 ml/min [facility] Estimated GFR (MDRD) Amer 422 mL/min >60 [facility] Comment on above: GFR Calc Estimated GFR (MDRD) Non-Af Amer 349 mL/min >60 [facility] Comment on above: Non- GFR Calc 26.0 pg 27.0-32.0 [facility] 14.6 % 11.6-14.6 [facility] 44.5 fl 35.1-43.9 [facility] 0.300 % 0.0-0.9 [facility] 0 % 0-5 [facility] 349 mL/min >60 [facility] 422 mL/min >60 [facility] 231.48 ml/min [facility] 69.5 RATIO 10-20 [facility] 28.0 mmol/L 21.0-32.0 [facility] No Panel InformationOrdered By: Dalton Lester on 01-16-2023 Troponin I High Sensitivity 4 pg/mL 3.0-78.0 [facility] Comment on above: Please Note: New Suha t Units and Gender Specific Reference Ranges. For more information see Policy Stat Procedure [place] High Sensitivity Troponin (TNIH) and attachments. 4 pg/mL 3.0-78.0 [facility] Platelets bldOrdered By: Marjorie Smith on 01-16-2023 Platelets (Bld) [#/Vol] 206 10*3/uL 150-450 [facility] Protein Test strip Ql (U)Ord ered By: Amena Smith on 01-16-2023 Protein Ql (U) 30 mg/dl Negative [facility] Serum or plasma calcium jacinta urement (mass/volume)Ordered By: Amena Smith on 01-16-2023 Calcium [Mass/Vol] 8.3 mg/dL 8.5-10.1 [facility] Serum or plasma creatinine m easurement (mass/volume)Ordered By: Amena Smith on 01-16-2023 Creatinine [Mass/Vol] 0.30 mg/dL 0.70-1.30 [facility] Comment on above: The validity of the calculated GFR & GFRAA in patients over 70 years has not been determined. Clinical correlation is essential. Serum or plasma urea nitroge n measurement (mass/volume)Ordered By: Amena Smith on 01-16-2023 Urea nitrogen [Mass/Vol] 21 mg/dL 7-18 [facility] Squamous epithelial cells de tection in urine sediment by light microscopyOrdered By: Amena Smith on 01-16-2023 Epithelial cells.squamous LM Ql (Urine sed) 0 SEEN /hpf 0-5 [facility] Thin prep Papanicolaou smear with manual screeningOrdered By: Amena Smith on 01-16-2023 Thin prep Papanicolaou smear with manual screening 4 5-15 [facility] Upper respiratory specimen i nfluenza A virus, influenza B virus, and severe acute respiratory syndromOrdered By: Amena Smith on 01-16-2023 Upper respiratory specimen influenza A virus, influenza B virus, and severe acute respiratory syndrom [facility] Urine blood detectionOrdered By: Amena Smith on 01-16-2023 RBC Ql (U) 10 /ul Negative [facility] RBC Ql (U) 0 SEEN /hpf 0-5 [facility] Urine clarityOrdered By: Marjorie Smith on 01-16-2023 Clarity (U) Clear Clear [facility] Urine color determinationOrd ered By: Amena Smith on 01-16-2023 Color (U) Yellow Yellow [facility] Urine glucose detectionOrder ed By: Amena Smith on 01-16-2023 Glucose Ql (U) Normal mg/dl Normal [facility] Urine leukocyte esterase det ection by dipstickOrdered By: Amena Smith on 01-16-2023 Leukocyte esterase Test strip Ql (U) 25 /ul Negative [facility] Urine pHOrdered By: Amena simons on 01-16-2023 pH (U) 6.0 [pH] 5.0 - 8.0 [facility] Urine sediment bacteria coun t by microscopy (number/high power field)Ordered By: Amena Smith on 01-16-2023 Bacteria LM.HPF (Urine sed) [#/Area] 0 /[HPF] None Seen [facility] Urine specific gravity measu rementOrdered By: Amena Smith on 01-16-2023 Specific gravity (U) [Rel density] 1.025 1.002-1.030 [facility] Urobilinogen Auto test strip Ql (U)Ordered By: Amena Smith on 01-16-2023 Urobilinogen Ql (U) Normal mg/dl Normal [facility] Absolute lymphocyte countOrd ered By: Torey Huffman on 01-04-2023 Lymphocytes Auto (Unsp spec) [#/Vol] 2.04 10*3/uL 0.83-4.51 [facility] Basophil percentageOrdered B y: Torey Huffman on 01-04-2023 Basophil percentage 91 mg/dL 74-106 [facility] Basophil percentage 141 mmol/L 136-145 [facility] Basophil percentage 3.9 mmol/L 3.5-5.1 [facility] Basophil percentage 105 mmol/L 98-107 [facility] Basophils (Bld) [#/Vol] 6.9 10*3/uL 4.4-11.0 [facility] Basophils (Bld) [#/Vol] 3.9 10*3/uL 2.0-7.7 [facility] Basophils/100 WBC (Bld) 0.3 % 0-1 [facility] Basophils/100 WBC (Bld) 57.1 % 47-70 [facility] Basophils/100 WBC (Bld) 4.4 % 0-5 [facility] Chloride [Moles/Vol] 105 mmol/L 98-107 [facility] Eosinophils/100 WBC (Bld) 4.4 % 0-5 [facility] Glucose [Mass/Vol] 91 mg/dL 74-106 [facility] Neutrophils (Bld) [#/Vol] 3.9 10*3/uL 2.0-7.7 [facility] Neutrophils/100 WBC (Bld) 57.1 % 47-70 [facility] Potassium [Moles/Vol] 3.9 mmol/L 3.5-5.1 [facility] Sodium [Moles/Vol] 141 mmol/L 136-145 [facility] WBC (Bld) [#/Vol] 6.9 10*3/uL 4.4-11.0 [facility] Blood erythrocytes count (nu mber/volume)Ordered By: Torey Huffman on 01-04-2023 RBC (Bld) [#/Vol] 4.11 10*6/uL 4.6-6.2 [facility] Blood hemoglobin measurement (mass/volume)Ordered By: Torey Huffman on 01-04-2023 Hemoglobin (Bld) [Mass/Vol] 10.6 g/dL 13.0-16.5 [facility] Blood lymphocytes/100 leukoc ytesOrdered By: Torey Huffman on 01-04-2023 Lymphocytes/100 WBC (Bld) 29.7 % 19-41 [facility] Blood monocytes/100 leukocyt esOrdered By: Torey Huffman on 01-04-2023 Monocytes/100 WBC (Bld) 8.4 % 0-10 [facility] Blood platelet mean volumeOr dered By: Torey Huffman on 01-04-2023 Platelet mean volume (Bld) [Entitic vol] 10.3 fL 6.2-12.0 [facility] Determination of erythrocyte mean corpuscular volume (MCV)Ordered By: Torey Huffman on 01-04-2023 MCV (RBC) [Entitic vol] 84.9 fL 80-94 [facility] Hematocrit Auto (Bld) [Volum e fraction]Ordered By: Torey Huffman on 01-04-2023 Hematocrit (Bld) [Volume fraction] 34.9 % 40-54 [facility] Laboratory - Chemistry and C hemistry - challengeOrdered By: Torey Huffman on 01-04-2023 CO2 [Moles/Vol] 31.0 mmol/L 21.0-32.0 [facility] Urea nitrogen/Creatinine [Mass ratio] 65.4 mg/mg 10-20 [facility] - Hematology and Cell countsOrdered By: Torey Huffman on 01-04-2023 Erythrocyte distribution width (RBC) [Entitic vol] 45.1 fL 35.1-43.9 [facility] Erythrocyte distribution width (RBC) [Ratio] 14.6 % 11.6-14.6 [facility] Immature granulocytes/100 WBC (Bld) 0.100 % 0.0-0.9 [facility] Comment on above: IG% - Immature Granu locytes (promyelocytes, myelocytes and metamyelocytes) > 1% indicates that a LEFT SHIFT is Present. MCH (RBC) [Entitic mass] 25.8 pg 27.0-32.0 [facility] Nucleated RBC/100 WBC (Bld) [Ratio] 0 % 0-5 [facility] MCHC Auto (RBC) [Mass/Vol]Or dered By: Torey Huffman on 01-04-2023 MCHC (RBC) [Mass/Vol] 30.4 g/dL 32-36 [facility] No Panel InformationOrdered By: Torey Huffman on 01-04-2023 Estimated GFR (MDRD) Amer 501 mL/min >60 [facility] Comment on above: GFR Calc Estimated GFR (MDRD) Non-Af Amer 414 mL/min >60 [facility] Comment on above: Non- GFR Calc 25.8 pg 27.0-32.0 [facility] 14.6 % 11.6-14.6 [facility] 45.1 fl 35.1-43.9 [facility] 0.100 % 0.0-0.9 [facility] 0 % 0-5 [facility] 414 mL/min >60 [facility] 501 mL/min >60 [facility] 65.4 RATIO 10-20 [facility] 31.0 mmol/L 21.0-32.0 [facility] Platelets bldOrdered By: Mellissa Huffman on 01-04-2023 Platelets (Bld) [#/Vol] 172 10*3/uL 150-450 [facility] Serum or plasma calcium jacinta urement (mass/volume)Ordered By: Torey Huffman on 01-04-2023 Calcium [Mass/Vol] 8.1 mg/dL 8.5-10.1 [facility] Serum or plasma creatinine m easurement (mass/volume)Ordered By: Torey Huffman on 01-04-2023 Creatinine [Mass/Vol] 0.26 mg/dL 0.70-1.30 [facility] Comment on above: The validity of the calculated GFR & GFRAA in patients over 70 years has not been determined. Clinical correlation is essential. Serum or plasma urea nitroge n measurement (mass/volume)Ordered By: Torey Huffman on 01-04-2023 Urea nitrogen [Mass/Vol] 17 mg/dL 7-18 [facility] Thin prep Papanicolaou smear with manual screeningOrdered By: Torey Huffman on 01-04-2023 Thin prep Papanicolaou smear with manual screening 5 5-15 [facility] Basophil percentageOrdered B y: Donte Abebe on 12-13-2022 Basophil percentage 116 mg/dL 74-106 [facility] Basophil percentage 141 mmol/L 136-145 [facility] Basophil percentage 3.4 mmol/L 3.5-5.1 [facility] Basophil percentage 109 mmol/L 98-107 [facility] Basophils (Bld) [#/Vol] 7.6 10*3/uL 4.4-11.0 [facility] Chloride [Moles/Vol] 109 mmol/L 98-107 [facility] Glucose [Mass/Vol] 116 mg/dL 74-106 [facility] Comment on above: Fasting Glucose resu lt from 100 to 125 mg/dL suggests IMPAIRED HOMEOSTASIS per A.D.A. criteria. Potassium [Moles/Vol] 3.4 mmol/L 3.5-5.1 [facility] Sodium [Moles/Vol] 141 mmol/L 136-145 [facility] WBC (Bld) [#/Vol] 7.6 10*3/uL 4.4-11.0 [facility] Blood erythrocytes count (nu mber/volume)Ordered By: Donte Abebe on 12-13-2022 RBC (Bld) [#/Vol] 3.74 10*6/uL 4.6-6.2 [facility] Blood hemoglobin measurement (mass/volume)Ordered By: Donte Abebe on 12-13-2022 Hemoglobin (Bld) [Mass/Vol] 9.9 g/dL 13.0-16.5 [facility] Blood platelet mean volumeOr dered By: Donte Abebe on 12-13-2022 Platelet mean volume (Bld) [Entitic vol] 9.9 fL 6.2-12.0 [facility] Determination of erythrocyte mean corpuscular volume (MCV)Ordered By: Donte Abebe on 12-13-2022 MCV (RBC) [Entitic vol] 87.4 fL 80-94 [facility] Hematocrit Auto (Bld) [Volum e fraction]Ordered By: Donte Abebe on 12-13-2022 Hematocrit (Bld) [Volume fraction] 32.7 % 40-54 [facility] - Chemistry and C hemistry - challengeOrdered By: Donte Abebe on 12-13-2022 CO2 [Moles/Vol] 27.0 mmol/L 21.0-32.0 [facility] Urea nitrogen/Creatinine [Mass ratio] 47.2 mg/mg 12-11 [facility] - Hematology and Cell countsOrdered By: Donte Abebe on 12-13-2022 Erythrocyte distribution width (RBC) [Entitic vol] 46.0 fL 35.1-43.9 [facility] Erythrocyte distribution width (RBC) [Ratio] 14.4 % 11.6-14.6 [facility] MCH (RBC) [Entitic mass] 26.5 pg 27.0-32.0 [facility] MCHC Auto (RBC) [Mass/Vol]Or dered By: Donte Abebe on 12-13-2022 MCHC (RBC) [Mass/Vol] 30.3 g/dL 32-36 [facility] No Panel InformationOrdered By: Donte Abebe on 12-13-2022 Estimated Creatinine Clearance Calc 277.78 ml/min [facility] Estimated GFR (MDRD) Amer 515 mL/min >60 [facility] Comment on above: GFR Calc Estimated GFR (MDRD) Non-Af Amer 426 mL/min >60 [facility] Comment on above: Non- GFR Calc 26.5 pg 27.0-32.0 [facility] 14.4 % 11.6-14.6 [facility] 46.0 fl 35.1-43.9 [facility] 426 mL/min >60 [facility] 515 mL/min >60 [facility] 277.78 ml/min [facility] 47.2 RATIO 12-11 [facility] 27.0 mmol/L 21.0-32.0 [facility] Platelets bldOrdered By: Sho bAebe on 12-13-2022 Platelets (Bld) [#/Vol] 166 10*3/uL 150-450 [facility] Serum or plasma calcium jacinta urement (mass/volume)Ordered By: Donte Abebe on 12-13-2022 Calcium [Mass/Vol] 7.4 mg/dL 8.5-10.1 [facility] Serum or plasma creatinine m easurement (mass/volume)Ordered By: Donte Abebe on 12-13-2022 Creatinine [Mass/Vol] 0.25 mg/dL 0.70-1.30 [facility] Comment on above: The validity of the calculated GFR & GFRAA in patients over 70 years has not been determined. Clinical correlation is essential. Serum or plasma urea nitroge n measurement (mass/volume)Ordered By: Donte Abebe on 12-13-2022 Urea nitrogen [Mass/Vol] 12 mg/dL 7-18 [facility] Thin prep Papanicolaou smear with manual screeningOrdered By: Donte Abebe on 12-13-2022 Thin prep Papanicolaou smear with manual screening 5 5-15 [facility] Basophil percentageOrdered B y: Donte Abebe on 12-11-2022 Chloride [Moles/Vol] 111 mmol/L 98-107 [facility] Glucose [Mass/Vol] 101 mg/dL 74-106 [facility] Comment on above: Fasting Glucose resu lt from 100 to 125 mg/dL suggests IMPAIRED HOMEOSTASIS per A.D.A. criteria. Potassium [Moles/Vol] 2.8 mmol/L 3.5-5.1 [facility] Sodium [Moles/Vol] 144 mmol/L 136-145 [facility] WBC (Bld) [#/Vol] 7.6 10*3/uL 4.4-11.0 [facility] Blood erythrocytes count (nu mber/volume)Ordered By: Donte Abebe on 12-11-2022 RBC (Bld) [#/Vol] 3.90 10*6/uL 4.6-6.2 [facility] Blood hemoglobin measurement (mass/volume)Ordered By: Donte Abebe on 12-11-2022 Hemoglobin (Bld) [Mass/Vol] 10.3 g/dL 13.0-16.5 [facility] Blood platelet mean volumeOr dered By: Donte Abebe on 12-11-2022 Platelet mean volume (Bld) [Entitic vol] 9.9 fL 6.2-12.0 [facility] Determination of erythrocyte mean corpuscular volume (MCV)Ordered By: Donte Abebe on 12-11-2022 MCV (RBC) [Entitic vol] 85.9 fL 80-94 [facility] Hematocrit Auto (Bld) [Volum e fraction]Ordered By: Donte Abebe on 12-11-2022 Hematocrit (Bld) [Volume fraction] 33.5 % 40-54 [facility] - Chemistry and C hemistry - challengeOrdered By: Donte Abebe on 12-11-2022 CO2 [Moles/Vol] 29.0 mmol/L 21.0-32.0 [facility] Urea nitrogen/Creatinine [Mass ratio] 69.8 mg/mg 12-11 [facility] - Hematology and Cell countsOrdered By: Donte Abebe on 12-11-2022 Erythrocyte distribution width (RBC) [Entitic vol] 44.6 fL 35.1-43.9 [facility] Erythrocyte distribution width (RBC) [Ratio] 14.4 % 11.6-14.6 [facility] MCH (RBC) [Entitic mass] 26.4 pg 27.0-32.0 [facility] MCHC Auto (RBC) [Mass/Vol]Or dered By: Donte Abebe on 12-11-2022 MCHC (RBC) [Mass/Vol] 30.7 g/dL 32-36 [facility] No Panel InformationOrdered By: Donte Abebe on 12-11-2022 Estimated Creatinine Clearance Calc 267.09 ml/min [facility] Estimated GFR (MDRD) Amer 506 mL/min >60 [facility] Comment on above: GFR Calc Estimated GFR (MDRD) Non-Af Amer 418 mL/min >60 [facility] Comment on above: Non- GFR Calc Platelets bldOrdered By: Sho Abebe on 12-11-2022 Platelets (Bld) [#/Vol] 183 10*3/uL 150-450 [facility] Serum or plasma calcium jacinta urement (mass/volume)Ordered By: Donte Abebe on 12-11-2022 Calcium [Mass/Vol] 7.8 mg/dL 8.5-10.1 [facility] Serum or plasma creatinine m easurement (mass/volume)Ordered By: Donte Abebe on 12-11-2022 Creatinine [Mass/Vol] 0.26 mg/dL 0.70-1.30 [facility] Comment on above: The validity of the calculated GFR & GFRAA in patients over 70 years has not been determined. Clinical correlation is essential. Serum or plasma urea nitroge n measurement (mass/volume)Ordered By: Donte Abebe on 12-11-2022 Urea nitrogen [Mass/Vol] 18 mg/dL 7-18 [facility] Thin prep Papanicolaou smear with manual screeningOrdered By: Donte Abebe on 12-11-2022 Thin prep Papanicolaou smear with manual screening 4 5-15 [facility] Absolute lymphocyte countOrd ered By: Miky Pio on 12-10-2022 Lymphocytes Auto (Unsp spec) [#/Vol] 2.23 10*3/uL 0.83-4.51 [facility] Basophil percentageOrdered B y: Miky Rahman on 12-10-2022 Basophil percentage 8.7 g/dL 6.4-8.2 [facility] Basophil percentage 0.20 mg/dL 0.20-1.00 [facility] Basophils (Bld) [#/Vol] 8.4 10*3/uL 2.0-7.7 [facility] Basophils/100 WBC (Bld) 0.2 % 0-1 [facility] Basophils/100 WBC (Bld) 72.2 % 47-70 [facility] Basophils/100 WBC (Bld) 2.1 % 0-5 [facility] Bilirubin [Mass/Vol] 0.20 mg/dL 0.20-1.00 [facility] Comment on above: For patients on eltr ombopag therapy, use of Dimension [place] TBIL is not recommended. Chloride [Moles/Vol] 105 mmol/L 98-107 [facility] Eosinophils/100 WBC (Bld) 2.1 % 0-5 [facility] Glucose [Mass/Vol] 109 mg/dL 74-106 [facility] Comment on above: Fasting Glucose resu lt from 100 to 125 mg/dL suggests IMPAIRED HOMEOSTASIS per A.D.A. criteria. Neutrophils (Bld) [#/Vol] 8.4 10*3/uL 2.0-7.7 [facility] Neutrophils/100 WBC (Bld) 72.2 % 47-70 [facility] Potassium [Moles/Vol] 3.8 mmol/L 3.5-5.1 [facility] Protein [Mass/Vol] 8.7 g/dL 6.4-8.2 [facility] Sodium [Moles/Vol] 140 mmol/L 136-145 [facility] WBC (Bld) [#/Vol] 11.6 10*3/uL 4.4-11.0 [facility] Blood erythrocytes count (nu mber/volume)Ordered By: Miky Rahman on 12-10-2022 RBC (Bld) [#/Vol] 4.77 10*6/uL 4.6-6.2 [facility] Blood hemoglobin measurement (mass/volume)Ordered By: Miky Rahman on 12-10-2022 Hemoglobin (Bld) [Mass/Vol] 12.6 g/dL 13.0-16.5 [facility] Blood lymphocytes/100 leukoc ytesOrdered By: Miky Rahman on 12-10-2022 Lymphocytes/100 WBC (Bld) 19.2 % 19-41 [facility] Blood monocytes/100 leukocyt esOrdered By: Miky Rahman on 12-10-2022 Monocytes/100 WBC (Bld) 5.9 % 0-10 [facility] Blood platelet mean volumeOr dered By: Miky Rahman on 12-10-2022 Platelet mean volume (Bld) [Entitic vol] 10.0 fL 6.2-12.0 [facility] Determination of erythrocyte mean corpuscular volume (MCV)Ordered By: Miky Rahman on 12-10-2022 MCV (RBC) [Entitic vol] 83.4 fL 80-94 [facility] Hematocrit Auto (Bld) [Volum e fraction]Ordered By: Miky Rahman on 12-10-2022 Hematocrit (Bld) [Volume fraction] 39.8 % 40-54 [facility] INR in Blood by Coagulation assayOrdered By: Miky Rahman on 12-10-2022 INR Coag (Bld) [Relative time] 1.0 {INR} [facility] - Chemistry and C hemistry - challengeOrdered By: Miky Rahman on 12-10-2022 ALP [Catalytic activity/Vol] 144 U/L 45-117 [facility] ALT [Catalytic activity/Vol] 29 U/L 16-61 [facility] CO2 [Moles/Vol] 29.0 mmol/L 21.0-32.0 [facility] Globulin (S) [Mass/Vol] 5.4 g/dL 2.2-4.2 [facility] Lipase [Catalytic activity/Vol] 58 U/L 13-75 [facility] Comment on above: Please note:LIPASE r evised reference range effective 22. New Lipase methodology. Expected to produce lower values than the previous assay method. NEW Reference Range: 13 - 75 U/L Urea nitrogen/Creatinine [Mass ratio] 45.3 mg/mg 10-20 [facility] - CoagulationOrde red By: Miky Rahman on 12-10-2022 aPTT Coag (Bld) [Time] 35.6 s 24.1-36.2 [facility] PT Coag (PPP) [Time] 13.4 s 11.7-14.9 [facility] - Hematology and Cell countsOrdered By: Miky Rahman on 12-10-2022 Erythrocyte distribution width (RBC) [Entitic vol] 42.8 fL 35.1-43.9 [facility] Erythrocyte distribution width (RBC) [Ratio] 14.0 % 11.6-14.6 [facility] Immature granulocytes/100 WBC (Bld) 0.400 % 0.0-0.9 [facility] Comment on above: IG% - Immature Granu locytes (promyelocytes, myelocytes and metamyelocytes) > 1% indicates that a LEFT SHIFT is Present. MCH (RBC) [Entitic mass] 26.4 pg 27.0-32.0 [facility] Nucleated RBC/100 WBC (Bld) [Ratio] 0 % 0-5 [facility] MCHC Auto (RBC) [Mass/Vol]Or dered By: Miky Rahman on 12-10-2022 MCHC (RBC) [Mass/Vol] 31.7 g/dL 32-36 [facility] No Panel InformationOrdered By: Miky Rahman on 12-10-2022 Estimated Creatinine Clearance Calc 198.41 ml/min [facility] Estimated GFR (MDRD) Amer 352 mL/min >60 [facility] Comment on above: GFR Calc Estimated GFR (MDRD) Non-Af Amer 291 mL/min >60 [facility] Comment on above: Non- GFR Calc 0.400 % 0.0-0.9 [facility] 0 % 0-5 [facility] 13.4 SECONDS 11.7-14.9 [facility] 35.6 Seconds 24.1-36.2 [facility] 5.4 g/dL 2.2-4.2 [facility] 58 U/L 13-75 [facility] 144 U/L 45-117 [facility] 29 U/L 16-61 [facility] Platelets bldOrdered By: Maximus Rahman on 12-10-2022 Platelets (Bld) [#/Vol] 228 10*3/uL 150-450 [facility] Serum or plasma albumin jacinta urement (mass/volume)Ordered By: Miyk Rahman on 12-10-2022 Albumin [Mass/Vol] 3.3 g/dL 3.2-5.0 [facility] Serum or plasma albumin/glob ulin mass ratioOrdered By: Miky Rahman on 12-10-2022 Albumin/Globulin [Mass ratio] 0.6 {ratio} 0.9-2.4 [facility] Serum or plasma calcium jacinta urement (mass/volume)Ordered By: Miky Rahman on 12-10-2022 Calcium [Mass/Vol] 8.6 mg/dL 8.5-10.1 [facility] Serum or plasma creatinine m easurement (mass/volume)Ordered By: Miky Rahman on 12-10-2022 Creatinine [Mass/Vol] 0.35 mg/dL 0.70-1.30 [facility] Comment on above: The validity of the calculated GFR & GFRAA in patients over 70 years has not been determined. Clinical correlation is essential. Serum or plasma urea nitroge n measurement (mass/volume)Ordered By: Miky Rahman on 12-10-2022 Urea nitrogen [Mass/Vol] 16 mg/dL 7-18 [facility] Thin prep Papanicolaou smear with manual screeningOrdered By: Miky Rahman on 12-10-2022 Thin prep Papanicolaou smear with manual screening 19 U/L 15-37 [facility] Thin prep Papanicolaou smear with manual screening 6 5-15 [facility] Absolute lymphocyte countOrd ered By: Torey Huffman on 12-07-2022 Lymphocytes Auto (Unsp spec) [#/Vol] 2.35 10*3/uL 0.83-4.51 [facility] Basophil percentageOrdered B y: Torey Huffman on 12-07-2022 Basophil percentage 100 mg/dL 74-106 [facility] Basophil percentage 139 mmol/L 136-145 [facility] Basophil percentage 3.5 mmol/L 3.5-5.1 [facility] Basophil percentage 104 mmol/L 98-107 [facility] Basophils (Bld) [#/Vol] 6.7 10*3/uL 4.4-11.0 [facility] Basophils (Bld) [#/Vol] 3.4 10*3/uL 2.0-7.7 [facility] Basophils/100 WBC (Bld) 0.3 % 0-1 [facility] Basophils/100 WBC (Bld) 50.3 % 47-70 [facility] Basophils/100 WBC (Bld) 5.3 % 0-5 [facility] Chloride [Moles/Vol] 104 mmol/L 98-107 [facility] Eosinophils/100 WBC (Bld) 5.3 % 0-5 [facility] Glucose [Mass/Vol] 100 mg/dL 74-106 [facility] Comment on above: Fasting Glucose resu lt from 100 to 125 mg/dL suggests IMPAIRED HOMEOSTASIS per A.D.A. criteria. Neutrophils (Bld) [#/Vol] 3.4 10*3/uL 2.0-7.7 [facility] Neutrophils/100 WBC (Bld) 50.3 % 47-70 [facility] Potassium [Moles/Vol] 3.5 mmol/L 3.5-5.1 [facility] Sodium [Moles/Vol] 139 mmol/L 136-145 [facility] WBC (Bld) [#/Vol] 6.7 10*3/uL 4.4-11.0 [facility] Blood erythrocytes count (nu mber/volume)Ordered By: Torey Huffman on 12-07-2022 RBC (Bld) [#/Vol] 4.10 10*6/uL 4.6-6.2 [facility] Blood hemoglobin measurement (mass/volume)Ordered By: Torey Huffman on 12-07-2022 Hemoglobin (Bld) [Mass/Vol] 10.8 g/dL 13.0-16.5 [facility] Blood lymphocytes/100 leukoc ytesOrdered By: Torey Huffman on 12-07-2022 Lymphocytes/100 WBC (Bld) 34.9 % 19-41 [facility] Blood monocytes/100 leukocyt esOrdered By: Torey Huffman on 12-07-2022 Monocytes/100 WBC (Bld) 8.9 % 0-10 [facility] Blood platelet mean volumeOr dered By: Torey Huffman on 12-07-2022 Platelet mean volume (Bld) [Entitic vol] 10.7 fL 6.2-12.0 [facility] Determination of erythrocyte mean corpuscular volume (MCV)Ordered By: Torey Huffman on 12-07-2022 MCV (RBC) [Entitic vol] 86.3 fL 80-94 [facility] Hematocrit Auto (Bld) [Volum e fraction]Ordered By: Torey Huffman on 12-07-2022 Hematocrit (Bld) [Volume fraction] 35.4 % 40-54 [facility] - Chemistry and C hemistry - challengeOrdered By: Torey Huffman on 12-07-2022 CO2 [Moles/Vol] 30.0 mmol/L 21.0-32.0 [facility] Urea nitrogen/Creatinine [Mass ratio] 58.1 mg/mg 10-20 [facility] - Hematology and Cell countsOrdered By: Torey Huffman on 12-07-2022 Erythrocyte distribution width (RBC) [Entitic vol] 43.8 fL 35.1-43.9 [facility] Erythrocyte distribution width (RBC) [Ratio] 13.9 % 11.6-14.6 [facility] Immature granulocytes/100 WBC (Bld) 0.300 % 0.0-0.9 [facility] Comment on above: IG% - Immature Granu locytes (promyelocytes, myelocytes and metamyelocytes) > 1% indicates that a LEFT SHIFT is Present. MCH (RBC) [Entitic mass] 26.3 pg 27.0-32.0 [facility] Nucleated RBC/100 WBC (Bld) [Ratio] 0 % [facility] ([facility] [Mass/Vol]Or dered By: Torey Huffman on 12-07-2022 MCHC (RBC) [Mass/Vol] 30.5 g/dL 32-36 [facility] No Panel InformationOrdered By: Torye Huffman on 12-07-2022 Estimated GFR (MDRD) Amer 385 mL/min >60 [facility] Comment on above: GFR Calc Estimated GFR (MDRD) Non-Af Amer 318 mL/min >60 [facility] Comment on above: Non- GFR Calc 26.3 pg 27.0-32.0 [facility] 13.9 % 11.6-14.6 [facility] 43.8 fl 35.1-43.9 [facility] 0.300 % 0.0-0.9 [facility] 0 % 0-5 [facility] 318 mL/min >60 [facility] 385 mL/min >60 [facility] 58.1 RATIO 10-20 [facility] 30.0 mmol/L 21.0-32.0 [facility] Platelets bldOrdered By: Mellissa Huffman on 12-07-2022 Platelets (Bld) [#/Vol] 208 10*3/uL 150-450 [facility] Serum or plasma calcium jacinta urement (mass/volume)Ordered By: Torey Huffman on 12-07-2022 Calcium [Mass/Vol] 8.3 mg/dL 8.5-10.1 [facility] Serum or plasma creatinine m easurement (mass/volume)Ordered By: Torey Huffman on 12-07-2022 Creatinine [Mass/Vol] 0.33 mg/dL 0.70-1.30 [facility] Comment on above: The validity of the calculated GFR & GFRAA in patients over 70 years has not been determined. Clinical correlation is essential. Serum or plasma urea nitroge n measurement (mass/volume)Ordered By: Torey Huffman on 12-07-2022 Urea nitrogen [Mass/Vol] 19 mg/dL 7-18 [facility] Thin prep Papanicolaou smear with manual screeningOrdered By: Torey Huffman on 10-16-2023 Thin prep Papanicolaou smear with manual screening 5 5-15 [facility] Absolute lymphocyte countOrd ered By: Torey Huffman on 11-12-2022 Lymphocytes Auto (Unsp spec) [#/Vol] 2.33 10*3/uL 0.83-4.51 [facility] Basophil percentageOrdered B y: Torey Huffman on 11-12-2022 Basophils/100 WBC (Bld) 0.1 % 0-1 [facility] Chloride [Moles/Vol] 104 mmol/L 98-107 [facility] [facility] Eosin[facility]/100 WBC (Bld) 4.2 % 0-5 [facility] Glucose [Mass/Vol] 99 mg/dL 74-106 [facility] Neutrophils (Bld) [#/Vol] 4.4 10*3/uL 2.0-7.7 [facility] Neutrophils/100 WBC (Bld) 56.0 % 47-70 [facility] Potassium [Moles/Vol] 3.6 mmol/L 3.5-5.1 [facility] Sodium [Moles/Vol] 140 mmol/L 136-145 [facility] WBC (Bld) [#/Vol] 7.8 10*3/uL 4.4-11.0 [facility] Blood erythrocytes count (nu mber/volume)Ordered By: Torey Huffman on 11-12-2022 RBC (Bld) [#/Vol] 4.11 10*6/uL 4.6-6.2 [facility] Blood hemoglobin measurement (mass/volume)Ordered By: Torey Huffman on 11-12-2022 Hemoglobin (Bld) [Mass/Vol] 10.9 g/dL 13.0-16.5 [facility] Blood lymphocytes/100 leukoc ytesOrdered By: Torey Huffman on 11-12-2022 Lymphocytes/100 WBC (Bld) 29.7 % 19-41 [facility] Blood monocytes/100 leukocyt esOrdered By: Torey Huffman on 11-12-2022 Monocytes/100 WBC (Bld) 9.7 % 0-10 [facility] Blood platelet mean volumeOr dered By: Torey Huffman on 11-12-2022 Platelet mean volume (Bld) [Entitic vol] 10.3 fL 6.2-12.0 [facility] Determination of erythrocyte mean corpuscular volume (MCV)Ordered By: oTrey Huffman on 11-12-2022 MCV (RBC) [Entitic vol] 86.6 fL 80-94 [facility] Hematocrit Auto (Bld) [Volum e fraction]Ordered By: Torey Huffman on 11-12-2022 Hematocrit (Bld) [Volume fraction] 35.6 % 40-54 [facility] Laboratory - Chemistry and C hemistry - challengeOrdered By: Torey Huffman on 11-12-2022 CO2 [Moles/Vol] 31.0 mmol/L 21.0-32.0 [facility] Urea nitrogen/Creatinine [Mass ratio] 81.1 mg/mg 10-20 [facility] Laboratory - Hematology and Cell countsOrdered By: Torey Huffman on 11-12-2022 Erythrocyte distribution width (RBC) [Entitic vol] 43.8 fL 35.1-43.9 [facility] Erythrocyte distribution width (RBC) [Ratio] 13.9 % 11.6-14.6 [facility] Immature granulocytes/100 WBC (Bld) 0.300 % 0.0-0.9 [facility] Comment on above: IG% - Immature Granu locytes (promyelocytes, myelocytes and metamyelocytes) > 1% indicates that a LEFT SHIFT is Present. MCH (RBC) [Entitic mass] 26.5 pg 27.0-32.0 [facility] Nucleated RBC/100 WBC (Bld) [Ratio] 0 % 0-5 [facility] MCHC Auto (RBC) [Mass/Vol]Or dered By: Torey Huffman on 11-12-2022 MCHC (RBC) [Mass/Vol] 30.6 g/dL 32-36 [facility] No Panel InformationOrdered By: Torey Huffman on 11-12-2022 Estimated GFR (MDRD) Amer 743 mL/min >60 [facility] Comment on above: GFR Calc Estimated GFR (MDRD) Non-Af Amer 614 mL/min >60 [facility] Comment on above: Non- GFR Calc Platelets bldOrdered By: Mellissa Huffman on 11-12-2022 Platelets (Bld) [#/Vol] 212 10*3/uL 150-450 [facility] Serum or plasma calcium jacinta urement (mass/volume)Ordered By: Torey Huffman on 11-12-2022 Calcium [Mass/Vol] 8.4 mg/dL 8.5-10.1 [facility] Serum or plasma creatinine m easurement (mass/volume)Ordered By: Torey Huffman on 11-12-2022 Creatinine [Mass/Vol] 0.18 mg/dL 0.70-1.30 [facility] Comment on above: The validity of the calculated GFR & GFRAA in patients over 70 years has not been determined. Clinical correlation is essential. Serum or plasma urea nitroge n measurement (mass/volume)Ordered By: Torey Huffman on 11-12-2022 Urea nitrogen [Mass/Vol] 15 mg/dL 7-18 [facility] Thin prep Papanicolaou smear with manual screeningOrdered By: Torye Huffman on 11-12-2022 Thin prep Papanicolaou smear with manual screening 5 5-15 [facility] Absolute lymphocyte countOrd ered By: Torey Huffman on 10-14-2022 Lymphocytes Auto (Unsp spec) [#/Vol] 2.10 10*3/uL 0.83-4.51 [facility] Basophil percentageOrdered B y: Torey Huffman on 10-14-2022 Basophils/100 WBC (Bld) 0.3 % 0-1 [facility] Chloride [Moles/Vol] 103 mmol/L 98-107 [facility] Eosinophils/100 WBC (Bld) 3.8 % 0-5 [facility] Glucose [Mass/Vol] 87 mg/dL 74-106 [facility] Neutrophils (Bld) [#/Vol] 3.5 10*3/uL 2.0-7.7 [facility] Neutrophils/100 WBC (Bld) 54.4 % 47-70 [facility] Potassium [Moles/Vol] 3.5 mmol/L 3.5-5.1 [facility] Sodium [Moles/Vol] 137 mmol/L 136-145 [facility] WBC (Bld) [#/Vol] 6.4 10*3/uL 4.4-11.0 [facility] Blood erythrocytes count (nu mber/volume)Ordered By: Toery Huffman on 10-14-2022 RBC (Bld) [#/Vol] 4.11 10*6/uL 4.6-6.2 [facility] Blood hemoglobin measurement (mass/volume)Ordered By: Torey Huffman on 10-14-2022 Hemoglobin (Bld) [Mass/Vol] 11.2 g/dL 13.0-16.5 [facility] Blood lymphocytes/100 leukoc ytesOrdered By: Torey Huffman on 10-14-2022 Lymphocytes/100 WBC (Bld) 32.9 % 19-41 [facility] Blood monocytes/100 leukocyt esOrdered By: Torey Huffman on 10-14-2022 Monocytes/100 WBC (Bld) 8.3 % 0-10 [facility] Blood platelet mean volumeOr dered By: Torey Huffman on 10-14-2022 Platelet mean volume (Bld) [Entitic vol] 10.3 fL 6.2-12.0 [facility] Determination of erythrocyte mean corpuscular volume (MCV)Ordered By: Torey Huffman on 10-14-2022 MCV (RBC) [Entitic vol] 83.2 fL 80-94 [facility] Hematocrit Auto (Bld) [Volum e fraction]Ordered By: Torey Huffman on 10-14-2022 Hematocrit (Bld) [Volume fraction] 34.2 % 40-54 [facility] Laboratory - Chemistry and C hemistry - challengeOrdered By: Torey Huffman on 10-14-2022 CO2 [Moles/Vol] 28.0 mmol/L 21.0-32.0 [facility] Urea nitrogen/Creatinine [Mass ratio] 48.4 mg/mg 10-20 [facility] - Hematology and Cell countsOrdered By: Torey Huffman on 10-14-2022 Erythrocyte distribution width (RBC) [Entitic vol] 41.8 fL 35.1-43.9 [facility] Erythrocyte distribution width (RBC) [Ratio] 13.7 % 11.6-14.6 [facility] Immature granulocytes/100 WBC (Bld) 0.300 % 0.0-0.9 [facility] Comment on above: IG% - Immature Granu locytes (promyelocytes, myelocytes and metamyelocytes) > 1% indicates that a LEFT SHIFT is Present. MCH (RBC) [Entitic mass] 27.3 pg 27.0-32.0 [facility] Nucleated RBC/100 WBC (Bld) [Ratio] 0 % 0-5 [facility] MCHC Auto (RBC) [Mass/Vol]Or dered By: Torey Huffman on 10-14-2022 MCHC (RBC) [Mass/Vol] 32.7 g/dL 32-36 [facility] No Panel InformationOrdered By: Torey Huffman on 10-14-2022 Estimated GFR (MDRD) Amer 444 mL/min >60 [facility] Comment on above: GFR Calc Estimated GFR (MDRD) Non-Af Amer 367 mL/min >60 [facility] Comment on above: Non- GFR Calc Platelets bldOrdered By: Mellissa Huffman on 10-14-2022 Platelets (Bld) [#/Vol] 211 10*3/uL 150-450 [facility] Serum or plasma calcium jacinta urement (mass/volume)Ordered By: Torey Huffman on 10-14-2022 Calcium [Mass/Vol] 8.6 mg/dL 8.5-10.1 [facility] Serum or plasma creatinine m easurement (mass/volume)Ordered By: Torey Huffman on 10-14-2022 Creatinine [Mass/Vol] 0.29 mg/dL 0.70-1.30 [facility] Comment on above: The validity of the calculated GFR & GFRAA in patients over 70 years has not been determined. Clinical correlation is essential. Serum or plasma urea nitroge n measurement (mass/volume)Ordered By: Torey Huffman on 10-14-2022 Urea nitrogen [Mass/Vol] 14 mg/dL 7-18 [facility] Thin prep Papanicolaou smear with manual screeningOrdered By: Torey Huffman on 10-14-2022 Thin prep Papanicolaou smear with manual screening 6 5-15 [facility] Absolute lymphocyte countOrd ered By: Chente Conn on 09-14-2022 Lymphocytes Auto (Unsp spec) [#/Vol] 1.95 10*3/uL 0.83-4.51 [facility] Basophil percentageOrdered B y: Chente Conn on 09-14-2022 Basophil percentage 21.5 ug/mL 10.0-40.0 [facility] Basophils/100 WBC (Bld) 0.3 % 0-1 [facility] Chloride [Moles/Vol] 104 mmol/L 98-107 [facility] Eosinophils/100 WBC (Bld) 3.7 % 0-5 [facility] Glucose [Mass/Vol] 91 mg/dL 74-106 [facility] Neutrophils (Bld) [#/Vol] 3.3 10*3/uL 2.0-7.7 [facility] Neutrophils/100 WBC (Bld) 54.7 % 47-70 [facility] Potassium [Moles/Vol] 4.0 mmol/L 3.5-5.1 [facility] Sodium [Moles/Vol] 138 mmol/L 136-145 [facility] WBC (Bld) [#/Vol] 6.0 10*3/uL 4.4-11.0 [facility] Blood erythrocytes count (nu mber/volume)Ordered By: Chente Conn on 09-14-2022 RBC (Bld) [#/Vol] 3.87 10*6/uL 4.6-6.2 [facility] Blood hemoglobin measurement (mass/volume)Ordered By: Chente Conn on 09-14-2022 Hemoglobin (Bld) [Mass/Vol] 10.5 g/dL 13.0-16.5 [facility] Blood lymphocytes/100 leukoc ytesOrdered By: Chente Conn on 09-14-2022 Lymphocytes/100 WBC (Bld) 32.4 % 19-41 [facility] Blood monocytes/100 leukocyt esOrdered By: Chente Conn on 09-14-2022 Monocytes/100 WBC (Bld) 8.7 % 0-10 [facility] Blood platelet mean volumeOr dered By: Chente Conn on 09-14-2022 Platelet mean volume (Bld) [Entitic vol] 10.2 fL 6.2-12.0 [facility] Determination of erythrocyte mean corpuscular volume (MCV)Ordered By: Chente Conn on 09-14-2022 MCV (RBC) [Entitic vol] 86.8 fL 80-94 [facility] Hematocrit Auto (Bld) [Volum e fraction]Ordered By: Chente Conn on 09-14-2022 Hematocrit (Bld) [Volume fraction] 33.6 % 40-54 [facility] Laboratory - Chemistry and C hemistry - challengeOrdered By: Chente Conn on 09-14-2022 CO2 [Moles/Vol] 30.0 mmol/L 21.0-32.0 [facility] Urea nitrogen/Creatinine [Mass ratio] 65.6 mg/mg 10-20 [facility] - Hematology and Cell countsOrdered By: Chente Conn on 09-14-2022 Erythrocyte distribution width (RBC) [Entitic vol] 44.9 fL 35.1-43.9 [facility] Erythrocyte distribution width (RBC) [Ratio] 14.1 % 11.6-14.6 [facility] Immature granulocytes/100 WBC (Bld) 0.200 % 0.0-0.9 [facility] Comment on above: IG% - Immature Granu locytes (promyelocytes, myelocytes and metamyelocytes) > 1% indicates that a LEFT SHIFT is Present. MCH (RBC) [Entitic mass] 27.1 pg 27.0-32.0 [facility] Nucleated RBC/100 WBC (Bld) [Ratio] 0 % 0-5 [facility] MCHC Auto (RBC) [Mass/Vol]Or dered By: Chente Conn on 09-14-2022 MCHC (RBC) [Mass/Vol] 31.3 g/dL 32-36 [facility] No Panel InformationOrdered By: Chente Conn on 09-14-2022 Estimated GFR (MDRD) Amer 540 mL/min >60 [facility] Comment on above: GFR Calc Estimated GFR (MDRD) Non-Af Amer 447 mL/min >60 [facility] Comment on above: Non- GFR Calc Platelets bldOrdered By: Darwin Conn on 09-14-2022 Platelets (Bld) [#/Vol] 197 10*3/uL 150-450 [facility] Serum or plasma calcium jacinta urement (mass/volume)Ordered By: Chente Conn on 09-14-2022 Calcium [Mass/Vol] 8.2 mg/dL 8.5-10.1 [facility] Serum or plasma creatinine m easurement (mass/volume)Ordered By: Chente Conn on 09-14-2022 Creatinine [Mass/Vol] 0.24 mg/dL 0.70-1.30 [facility] Comment on above: The validity of the calculated GFR & GFRAA in patients over 70 years has not been determined. Clinical correlation is essential. Serum or plasma urea nitroge n measurement (mass/volume)Ordered By: Chente Conn on 09-14-2022 Urea nitrogen [Mass/Vol] 16 mg/dL 7-18 [facility] Thin prep Papanicolaou smear with manual screeningOrdered By: Chente Conn on 09-14-2022 Thin prep Papanicolaou smear with manual screening 4 5-15 [facility] Absolute lymphocyte countOrd ered By: Torey Huffman on 08-17-2022 Lymphocytes Auto (Unsp spec) [#/Vol] 2.34 10*3/uL 0.83-4.51 [facility] Basophil percentageOrdered B y: Torey Huffman on 08-17-2022 Basophils/100 WBC (Bld) 0.3 % 0-1 [facility] Chloride [Moles/Vol] 103 mmol/L 98-107 [facility] Eosinophils/100 WBC (Bld) 3.6 % 0-5 [facility] Glucose [Mass/Vol] 87 mg/dL 74-106 [facility] Neutrophils (Bld) [#/Vol] 2.9 10*3/uL 2.0-7.7 [facility] Neutrophils/100 WBC (Bld) 47.8 % 47-70 [facility] Potassium [Moles/Vol] 3.9 mmol/L 3.5-5.1 [facility] Sodium [Moles/Vol] 137 mmol/L 136-145 [facility] WBC (Bld) [#/Vol] 6.1 10*3/uL 4.4-11.0 [facility] Blood erythrocytes count (nu mber/volume)Ordered By: Torey Huffman on 08-17-2022 RBC (Bld) [#/Vol] 3.97 10*6/uL 4.6-6.2 [facility] Blood hemoglobin measurement (mass/volume)Ordered By: Torey Huffman on 08-17-2022 Hemoglobin (Bld) [Mass/Vol] 10.9 g/dL 13.0-16.5 [facility] Blood lymphocytes/100 leukoc ytesOrdered By: Torey Huffman on 08-17-2022 Lymphocytes/100 WBC (Bld) 38.1 % 19-41 [facility] Blood monocytes/100 leukocyt esOrdered By: Torey Huffman on 08-17-2022 Monocytes/100 WBC (Bld) 9.9 % 0-10 [facility] Blood platelet mean volumeOr dered By: Torey Huffman on 08-17-2022 Platelet mean volume (Bld) [Entitic vol] 10.0 fL 6.2-12.0 [facility] Determination of erythrocyte mean corpuscular volume (MCV)Ordered By: Torey Huffman on 08-17-2022 MCV (RBC) [Entitic vol] 86.1 fL 80-94 [facility] Hematocrit Auto (Bld) [Volum e fraction]Ordered By: Torey Huffman on 08-17-2022 Hematocrit (Bld) [Volume fraction] 34.2 % 40-54 [facility] Laboratory - Chemistry and C hemistry - challengeOrdered By: Torey Huffman on 08-17-2022 CO2 [Moles/Vol] 29.0 mmol/L 21.0-32.0 [facility] Urea nitrogen/Creatinine [Mass ratio] 51.6 mg/mg 10-20 [facility] - Hematology and Cell countsOrdered By: Torey Huffman on 08-17-2022 Erythrocyte distribution width (RBC) [Entitic vol] 42.5 fL 35.1-43.9 [facility] Erythrocyte distribution width (RBC) [Ratio] 13.6 % 11.6-14.6 [facility] Immature granulocytes/100 WBC (Bld) 0.300 % 0.0-0.9 [facility] Comment on above: IG% - Immature Granu locytes (promyelocytes, myelocytes and metamyelocytes) > 1% indicates that a LEFT SHIFT is Present. MCH (RBC) [Entitic mass] 27.5 pg 27.0-32.0 [facility] Nucleated RBC/100 WBC (Bld) [Ratio] 0 % 0-5 [facility] MCHC Auto (RBC) [Mass/Vol]Or dered By: Torey Huffman on 08-17-2022 MCHC (RBC) [Mass/Vol] 31.9 g/dL 32-36 [facility] No Panel InformationOrdered By: Torey Huffman on 08-17-2022 Estimated GFR (MDRD) Amer 410 mL/min >60 [facility] Comment on above: GFR Calc Estimated GFR (MDRD) Non-Af Amer 339 mL/min >60 [facility] Comment on above: Non- GFR Calc Platelets bldOrdered By: Mellissa Huffman on 08-17-2022 Platelets (Bld) [#/Vol] 194 10*3/uL 150-450 [facility] Serum or plasma calcium jacinta urement (mass/volume)Ordered By: Torey Huffman on 08-17-2022 Calcium [Mass/Vol] 8.7 mg/dL 8.5-10.1 [facility] Serum or plasma creatinine m easurement (mass/volume)Ordered By: Torey Huffman on 08-17-2022 Creatinine [Mass/Vol] 0.31 mg/dL 0.70-1.30 [facility] Comment on above: The validity of the calculated GFR & GFRAA in patients over 70 years has not been determined. Clinical correlation is essential. Serum or plasma urea nitroge n measurement (mass/volume)Ordered By: Torey Huffman on 08-17-2022 Urea nitrogen [Mass/Vol] 16 mg/dL 7-18 [facility] Thin prep Papanicolaou smear with manual screeningOrdered By: Torey Huffman on 08-17-2022 Thin prep Papanicolaou smear with manual screening 5 5-15 [facility] Absolute lymphocyte countOrd ered By: Torey Huffamn on 07-22-2022 Lymphocytes Auto (Unsp spec) [#/Vol] 2.12 10*3/uL 0.83-4.51 [facility] Basophil percentageOrdered B y: Torey Huffman on 07-22-2022 Basophils/100 WBC (Bld) 0.3 % 0-1 [facility] Eosinophils/100 WBC (Bld) 4.9 % 0-5 [facility] Neutrophils (Bld) [#/Vol] 2.9 10*3/uL 2.0-7.7 [facility] Neutrophils/100 WBC (Bld) 49.2 % 47-70 [facility] WBC (Bld) [#/Vol] 5.9 10*3/uL 4.4-11.0 [facility] Basophil percentageOrdered B y: Chente Conn on 07-22-2022 Chloride [Moles/Vol] 102 mmol/L 98-107 [facility] Glucose [Mass/Vol] 80 mg/dL 74-106 [facility] Potassium [Moles/Vol] 3.9 mmol/L 3.5-5.1 [facility] Sodium [Moles/Vol] 139 mmol/L 136-145 [facility] Blood erythrocytes count (nu mber/volume)Ordered By: Torey Huffman on 07-22-2022 RBC (Bld) [#/Vol] 3.96 10*6/uL 4.6-6.2 [facility] Blood hemoglobin measurement (mass/volume)Ordered By: Torey Huffman on 07-22-2022 Hemoglobin (Bld) [Mass/Vol] 11.1 g/dL 13.0-16.5 [facility] Blood lymphocytes/100 leukoc ytesOrdered By: Torey Huffman on 07-22-2022 Lymphocytes/100 WBC (Bld) 35.9 % 19-41 [facility] Blood monocytes/100 leukocyt esOrdered By: Torey Huffamn on 07-22-2022 Monocytes/100 WBC (Bld) 9.5 % 0-10 [facility] Blood platelet mean volumeOr dered By: Torey Huffman on 07-22-2022 Platelet mean volume (Bld) [Entitic vol] 9.9 fL 6.2-12.0 [facility] Determination of erythrocyte mean corpuscular volume (MCV)Ordered By: Torey Huffman on 07-22-2022 MCV (RBC) [Entitic vol] 84.8 fL 80-94 [facility] Hematocrit Auto (Bld) [Volum e fraction]Ordered By: Torey Huffman on 07-22-2022 Hematocrit (Bld) [Volume fraction] 33.6 % 40-54 [facility] Laboratory - Chemistry and C hemistry - challengeOrdered By: Chente Conn on 07-22-2022 CO2 [Moles/Vol] 30.0 mmol/L 21.0-32.0 [facility] Urea nitrogen/Creatinine [Mass ratio] 36.2 mg/mg 10-20 [facility] - Hematology and Cell countsOrdered By: Torey Huffman on 07-22-2022 Erythrocyte distribution width (RBC) [Entitic vol] 42.1 fL 35.1-43.9 [facility] Erythrocyte distribution width (RBC) [Ratio] 13.5 % 11.6-14.6 [facility] Immature granulocytes/100 WBC (Bld) 0.200 % 0.0-0.9 [facility] Comment on above: IG% - Immature Granu locytes (promyelocytes, myelocytes and metamyelocytes) > 1% indicates that a LEFT SHIFT is Present. MCH (RBC) [Entitic mass] 28.0 pg 27.0-32.0 [facility] Nucleated RBC/100 WBC (Bld) [Ratio] 0 % 0-5 [facility] MCHC Auto (RBC) [Mass/Vol]Or dered By: Torey Huffman on 07-22-2022 MCHC (RBC) [Mass/Vol] 33.0 g/dL 32-36 [facility] No Panel InformationOrdered By: hCente Conn on 07-22-2022 Estimated GFR (MDRD) Amer 346 mL/min >60 [facility] Comment on above: GFR Calc Estimated GFR (MDRD) Non-Af Amer 286 mL/min >60 [facility] Comment on above: Non- GFR Calc Platelets bldOrdered By: Mellissa Huffman on 07-22-2022 Platelets (Bld) [#/Vol] 171 10*3/uL 150-450 [facility] Serum or plasma calcium jacinta urement (mass/volume)Ordered By: Chente Conn on 07-22-2022 Calcium [Mass/Vol] 8.6 mg/dL 8.5-10.1 [facility] Serum or plasma creatinine m easurement (mass/volume)Ordered By: Chente Conn on 07-22-2022 Creatinine [Mass/Vol] 0.36 mg/dL 0.70-1.30 [facility] Comment on above: The validity of the calculated GFR & GFRAA in patients over 70 years has not been determined. Clinical correlation is essential. Serum or plasma urea nitroge n measurement (mass/volume)Ordered By: Chente Conn on 07-22-2022 Urea nitrogen [Mass/Vol] 13 mg/dL 7-18 [facility] Thin prep Papanicolaou smear with manual screeningOrdered By: Chente Conn on 07-22-2022 Thin prep Papanicolaou smear with manual screening 7 5-15 [facility] CNPNon 06-30-2022 [facility] Telephone ([facility]) -------- KRISS MICHAEL ([id number]) 1980 M Date Time Provider Department 06/30/22 STOMA THERAPY [facility] During your visit today, we recorded the following information about you: Amber Monreal RN 06/30/2022 3:53 PM Signed [phone] Pt's mother called. She would like to discuss pt's stoma prolapse. Chichi Fowler RN 06/30/2022 4:48 PM Signed [facility] nursing returned patient's mother Yue message [...] e-mail. Mother will give order numbers to [facility]. Also recommended can apply stomahesive powder [...] [R50.9] 01/13/2013 (more content not included)... Normal [facility] Absolute lymphocyte countOrd ered By: Dr. De La Rosa on 06-22-2022 Lymphocytes Auto (Unsp spec) [#/Vol] 1.42 10*3/uL 0.83-4.51 [facility] Basophil percentageOrdered B y: Dr. De La Rosa on 06-22-2022 Basophil percentage 0-5 SEEN /hpf 0-5 [facility] Basophil percentage 82 mg/dL 74-106 [facility] Basophil percentage 7.2 g/dL 6.4-8.2 [facility] Basophil percentage 0.10 mg/dL 0.20-1.00 [facility] Basophil percentage 139 mmol/L 136-145 [facility] Basophil percentage 3.5 mmol/L 3.5-5.1 [facility] Basophil percentage 107 mmol/L 98-107 [facility] Basophil percentage 1.3 mmol/L 0.4-2.0 [facility] Basophils (Bld) [#/Vol] 6.6 10*3/uL 4.4-11.0 [facility] Basophils (Bld) [#/Vol] 4.5 10*3/uL 2.0-7.7 [facility] Basophils/100 WBC (Bld) 67.2 % 47-70 [facility] Basophils/100 WBC (Bld) 2.4 % 0-5 [facility] Basophils/100 WBC (Bld) 0.2 % 0-1 [facility] Basophil percentageOrdered B y: Siddharth De La Rosa on 06-22-2022 Bilirubin [Mass/Vol] 0.10 mg/dL 0.20-1.[address] [facility] Comment on above: For patients on eltr ombopag therapy, use of Dimension [place] TBIL is not recommended. Chloride [Moles/Vol] 107 mmol/L 98-107 [facility] Eosinophils/100 WBC (Bld) 2.4 % 0-5 [facility] Glucose [Mass/Vol] 82 mg/dL 74-106 [facility] Lactate [Moles/Vol] 1.3 mmol/L 0.4-2.0 [facility] Neutrophils (Bld) [#/Vol] 4.5 10*3/uL 2.0-7.7 [facility] Neutrophils/100 WBC (Bld) 67.2 % 47-70 [facility] Potassium [Moles/Vol] 3.5 mmol/L 3.5-5.1 [facility] Protein [Mass/Vol] 7.2 g/dL 6.4-8.2 [facility] Sodium [Moles/Vol] 139 mmol/L 136-145 [facility] WBC (Bld) [#/Vol] 6.6 10*3/uL 4.4-11.0 [facility] Bilirubin Test strip Ql (U)O rdered By: Dr. De La Rosa on 06-22-2022 Bilirubin Ql (U) Negative Negative [facility] Blood erythrocytes count (nu mber/volume)Ordered By: Dr. De La Rosa on 06-22-2022 RBC (Bld) [#/Vol] 4.21 10*6/uL 4.6-6.2 [facility] Blood hemoglobin measurement (mass/volume)Ordered By: Dr. De La Rosa on 06-22-2022 Hemoglobin (Bld) [Mass/Vol] 11.5 g/dL 13.0-16.5 [facility] Blood lymphocytes/100 leukoc ytesOrdered By: Dr. De La Rosa on 06-22-2022 Lymphocytes/100 WBC (Bld) 21.5 % 19-41 [facility] Blood monocytes/100 leukocyt esOrdered By: Dr. De La Rosa on 06-22-2022 Monocytes/100 WBC (Bld) 8.5 % 0-10 [facility] Blood platelet mean volumeOr dered By: Dr. De La Rosa on 06-22-2022 Platelet mean volume (Bld) [Entitic vol] 10.0 fL 6.2-12.0 [facility] Culture, urineOrdered By: Daina De La Rosa on 06-22-2022 Bacteria identified Cx Nom (U) Culture exhibits no growth. [facility] Determination of erythrocyte mean corpuscular volume (MCV)Ordered By: Dr. De La Rosa on 06-22-2022 MCV (RBC) [Entitic vol] 86.7 fL 80-94 [facility] Hematocrit Auto (Bld) [Volum e fraction]Ordered By: Dr. De La Rosa on 06-22-2022 Hematocrit (Bld) [Volume fraction] 36.5 % 40-54 [facility] INR in Blood by Coagulation assayOrdered By: Dr. De La Rosa on 06-22-2022 INR Coag (Bld) [Relative time] 1.0 {INR} [facility] Ketones Test strip Ql (U)Ord ered By: Dr. De La Rosa on 06-22-2022 Ketones Ql (U) 5 mg/dl Negative [facility] Laboratory - Chemistry and C hemistry - challengeOrdered By: Siddharth De La Rosa on 06-22-2022 ALP [Catalytic activity/Vol] 135 U/L 45-117 [facility] ALT [Catalytic activity/Vol] 19 U/L 16-61 [facility] CO2 [Moles/Vol] 25.0 mmol/L 21.0-32.0 [facility] Globulin (S) [Mass/Vol] 4.3 g/dL 2.2-4.2 [facility] Urea nitrogen/Creatinine [Mass ratio] 48.6 mg/mg 10-20 [facility] Laboratory - CoagulationOrde red By: Siddharth De La Rosa on 06-22-2022 aPTT Coag (Bld) [Time] 31.6 s 24.1-36.2 [facility] PT Coag (PPP) [Time] 13.0 s 11.7-14.9 [facility] Laboratory - Hematology and Cell countsOrdered By: Siddharth De La Rosa on 06-22-2022 Erythrocyte distribution width (RBC) [Entitic vol] 45.2 fL 35.1-43.9 [facility] Erythrocyte distribution width (RBC) [Ratio] 14.3 % 11.6-14.6 [facility] Immature granulocytes/100 WBC (Bld) 0.200 % 0.0-0.9 [facility] Comment on above: IG% - Immature Granu locytes (promyelocytes, myelocytes and metamyelocytes) > 1% indicates that a LEFT SHIFT is Present. MCH (RBC) [Entitic mass] 27.3 pg 27.0-32.0 [facility] Nucleated RBC/100 WBC (Bld) [Ratio] 0 % 0-5 [facility] Laboratory - Microbiology an d Antimicrobial susceptibilityOrdered By: Siddharth De La Rosa on 06-22-2022 Bacteria identified Cx Nom (Bld) No growth in 5 days. [facility] MCHC Auto (RBC) [Mass/Vol]Or dered By: Dr. De La Rosa on 06-22-2022 MCHC (RBC) [Mass/Vol] 31.5 g/dL 32-36 [facility] Mucus LM Ql (Urine sed)Order ed By: Dr. De La Rosa on 06-22-2022 Mucus Ql (Urine sed) 0 SEEN /hpf [facility] Nitrite Test strip Ql (U)Ord ered By: Dr. De La Rosa on 06-22-2022 Nitrite Ql (U) Negative Negative [facility] No Panel InformationOrdered By: Siddharth De La Rosa on 06-22-2022 Estimated Creatinine Clearance Calc 366.58 ml/min [facility] Estimated GFR (MDRD) Amer 383 mL/min >60 [facility] Comment on above: GFR Calc Estimated GFR (MDRD) Non-Af Amer 317 mL/min >60 [facility] Comment on above: Non- GFR Calc No Panel InformationOrdered By: Dr. De La Rosa on 06-22-2022 27.3 pg 27.0-32.0 [facility] 14.3 % 11.6-14.6 [facility] 45.2 fl 35.1-43.9 [facility] 0.200 % 0.0-0.9 [facility] 0 % 0-5 [facility] 13.0 SECONDS 11.7-14.9 [facility] 31.6 Seconds 24.1-36.2 [facility] 317 mL/min >60 [facility] 383 mL/min >60 [facility] 366.58 ml/min [facility] 48.6 RATIO 10-20 [facility] 4.3 g/dL 2.2-4.2 [facility] 135 U/L 45-117 [facility] 19 U/L 16-61 [facility] 25.0 mmol/L 21.0-32.0 [facility] Platelets bldOrdered By: Dr. De La Rosa on 06-22-2022 Platelets (Bld) [#/Vol] 202 10*3/uL 150-450 [facility] Protein Test strip Ql (U)Ord ered By: Dr. De La Rosa on 06-22-2022 Protein Ql (U) 30 mg/dl Negative [facility] Serum or plasma albumin jacinta urement (mass/volume)Ordered By: Dr. De La Rosa on 06-22-2022 Albumin [Mass/Vol] 2.9 g/dL 3.2-5.0 [facility] Serum or plasma albumin/glob ulin mass ratioOrdered By: Dr. De La Rosa on 06-22-2022 Albumin/Globulin [Mass ratio] 0.7 {ratio} 0.9-2.4 [facility] Serum or plasma calcium jacinta urement (mass/volume)Ordered By: Dr. De La Rosa on 06-22-2022 Calcium [Mass/Vol] 7.6 mg/dL 8.5-10.1 [facility] Serum or plasma creatinine m easurement (mass/volume)Ordered By: Dr. De La Rosa on 06-22-2022 Creatinine [Mass/Vol] 0.33 mg/dL 0.70-1.30 [facility] Comment on above: The validity of the calculated GFR & GFRAA in patients over 70 years has not been determined. Clinical correlation is essential. Serum or plasma urea nitroge n measurement (mass/volume)Ordered By: Dr. De La Rosa on 06-22-2022 Urea nitrogen [Mass/Vol] 16 mg/dL 7-18 [facility] Squamous epithelial cells de tection in urine sediment by light microscopyOrdered By: Dr. De La Rosa on 06-22-2022 Epithelial cells.squamous LM Ql (Urine sed) 0-5 SEEN /hpf 0-5 [facility] Thin prep Papanicolaou smear with manual screeningOrdered By: Dr. De La Rosa on 05-01-2023 Thin prep Papanicolaou smear with manual screening 16 U/L 15-37 [facility] Thin prep Papanicolaou smear with manual screening 7 5-15 [facility] Urine blood detectionOrdered By: Dr. De La Rosa on 06-22-2022 RBC Ql (U) Negative Negative [facility] RBC Ql (U) 0 SEEN /hpf 0-5 [facility] Urine clarityOrdered By: Dr. De La Rosa on 06-22-2022 Clarity (U) Sl Cldy Clear [facility] Urine color determinationOrd ered By: Dr. De La Rosa on 06-22-2022 Color (U) Yellow Yellow [facility] Urine glucose detectionOrder ed By: Dr. De La Rosa on 06-22-2022 Glucose Ql (U) Normal mg/dl Normal [facility] Urine leukocyte esterase det ection by dipstickOrdered By: Dr. De La Rosa on 06-22-2022 Leukocyte esterase Test strip Ql (U) 25 /ul Negative [facility] Urine pHOrdered By: Dr. Lianne vieira on 06-22-2022 pH (U) 8.0 [pH] 5.0 - 8.0 [facility] Urine sediment bacteria coun t by microscopy (number/high power field)Ordered By: Dr. De La Rosa on 06-22-2022 Bacteria LM.HPF (Urine sed) [#/Area] 0 /[HPF] None Seen [facility] Urine specific gravity measu rementOrdered By: Dr. De La Rosa on 06-22-2022 Specific gravity (U) [Rel density] 1.010 1.002-1.030 [facility] Urobilinogen Auto test strip Ql (U)Ordered By: Dr. De La Rosa on 06-22-2022 Urobilinogen Ql (U) Normal mg/dl Normal [facility] CNNURSEon 06-15-2022 CNNURSE Nurse Visit (JAYNA) -------- KRISS MICHAEL ([id number]) 1980 Date Time Provider Department 06/15/22 2:00 PM [facility] During your visit today, we recorded the following information about you: Cassie Cui RN 06/15/2022 3:50 PM Addendum The [address] [address] Patient: Kriss Michael Patient Address: [address] [place] [address] Dr Araujo [facility] Preferred Gender: male Date of : 1980 Type of Stoma: End Descending Colostomy Diagnosis: Constipation K59.0 OSTOMY SUPPLY ORDER FORM Coloplast SenSura [place] MAXI Drainable Pouch with Soft Outlet Transparent Cut-to-fit 4 #[id number] 30 day use - 1 Box Coloplast Bed Drainage Bag #[id number] 30 day use-2 bags 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 Leavitt For immediate authorization, please contact the physician?s office. [facility] Nurse: VALERIANO Peters, CWOCN Addendum by: VALERIANO Virgen, CWOCN SIGNATURE: Cassie Cui RN PATIENT NAME: Kriss Michael DATE: June 15, 2022 TIME: 3:34 PM CONTACT #: [phone] Cassie Cui RN 06/15/2022 6:05 PM Signed [...] Requested samples from [employer] for Coloplast SenSura [place] MAXI Drainable pouch with soft outlet #06655. Order form provided. Also discussed use of [...] effluent Current pouching system: Jazzmine Cohesive StomaWrap, Mcdougal New Image flat flange with tape collar (cutting surface up to 3 1/2), high volume output pouch Current wearing time: 1 day Recommendations: Skin Care: Apply ConvaTec Stomahesive powder to irritated or denuded skin, brush away excess. 3M No sting skin barrier film. Pouching System: After reducing prolapse, applied Mcdougal Hollihesive long wedges to peristomal skin, Coloplast [...] Inject intravenou (more content not included)... Normal [facility] Absolute lymphocyte countOrd ered By: Dr. Munoz on 06-12-2022 Lymphocytes Auto (Unsp spec) [#/Vol] 2.18 10*3/uL 0.83-4.51 [facility] Basophil percentageOrdered B y: Dr. Munoz on 06-12-2022 Basophil percentage 90 mg/dL 74-106 [facility] Basophil percentage 135 mmol/L 136-145 [facility] Basophil percentage 3.7 mmol/L 3.5-5.1 [facility] Basophil percentage 103 mmol/L 98-107 [facility] Basophils (Bld) [#/Vol] 6.1 10*3/uL 4.4-11.0 [facility] Basophils (Bld) [#/Vol] 3.1 10*3/uL 2.0-7.7 [facility] Basophils/100 WBC (Bld) 0.5 % 0-1 [facility] Basophils/100 WBC (Bld) 50.9 % 47-70 [facility] Basophils/100 WBC (Bld) 3.3 % 0-5 [facility] Chloride [Moles/Vol] 103 mmol/L 98-107 [facility] Eosinophils/100 WBC (Bld) 3.3 % 0-5 [facility] Glucose [Mass/Vol] 90 mg/dL 74-106 [facility] Neutrophils (Bld) [#/Vol] 3.1 10*3/uL 2.0-7.7 [facility] Neutrophils/100 WBC (Bld) 50.9 % 47-70 [facility] Potassium [Moles/Vol] 3.7 mmol/L 3.5-5.1 [facility] Sodium [Moles/Vol] 135 mmol/L 136-145 [facility] WBC (Bld) [#/Vol] 6.1 10*3/uL 4.4-11.0 [facility] Blood erythrocytes count (nu mber/volume)Ordered By: Dr. Munoz on 06-12-2022 RBC (Bld) [#/Vol] 4.08 10*6/uL 4.6-6.2 [facility] Blood hemoglobin measurement (mass/volume)Ordered By: Dr. Munoz on 06-12-2022 Hemoglobin (Bld) [Mass/Vol] 11.2 g/dL 13.0-16.5 [facility] Blood lymphocytes/100 leukoc ytesOrdered By: Dr. Munoz on 06-12-2022 Lymphocytes/100 WBC (Bld) 35.9 % 19-41 [facility] Blood monocytes/100 leukocyt esOrdered By: Dr. Munoz on 06-12-2022 Monocytes/100 WBC (Bld) 8.1 % 0-10 [facility] Blood platelet mean volumeOr dered By: Dr. Munoz on 06-12-2022 Platelet mean volume (Bld) [Entitic vol] 9.8 fL 6.2-12.0 [facility] Determination of erythrocyte mean corpuscular volume (MCV)Ordered By: Dr. Munoz on 06-12-2022 MCV (RBC) [Entitic vol] 85.0 fL 80-94 [facility] Hematocrit Auto (Bld) [Volum e fraction]Ordered By: Dr. Munoz on 06-12-2022 Hematocrit (Bld) [Volume fraction] 34.7 % 40-54 [facility] Influenza virus A and B and SARS-CoV-2 (COVID-19) Ag panel - Upper respiratory specimOrdered By: Naveen Munoz on 06-12-2022 SARS-CoV-2 (COVID-19) RNA YAYO+probe Ql (Resp) [facility] Influenza virus A and B and SARS-CoV-2 (COVID-19) Ag panel - Upper respiratory specimOrdered By: Dr. Munoz on 06-12-2022 SARS-CoV-2 (COVID-19) RNA YAYO+probe Ql (Resp) [facility] Laboratory - Chemistry and C hemistry - challengeOrdered By: Dr. Munoz on 06-12-2022 CO2 [Moles/Vol] 28.0 mmol/L 21.0-32.0 [facility] Urea nitrogen/Creatinine [Mass ratio] 38.9 mg/mg 10-20 [facility] Laboratory - Hematology and Cell countsOrdered By: Dr. Munoz on 06-12-2022 Erythrocyte distribution width (RBC) [Entitic vol] 45.3 fL 35.1-43.9 [facility] Erythrocyte distribution width (RBC) [Ratio] 14.5 % 11.6-14.6 [facility] Immature granulocytes/100 WBC (Bld) 1.300 % 0.0-0.9 [facility] Comment on above: IG% - Immature Granu locytes (promyelocytes, myelocytes and metamyelocytes) > 1% indicates that a LEFT SHIFT is Present. MCH (RBC) [Entitic mass] 27.5 pg 27.0-32.0 [facility] Nucleated RBC/100 WBC (Bld) [Ratio] 0 % 0-5 [facility] MCHC Auto (RBC) [Mass/Vol]Or dered By: Dr. Munoz on 06-12-2022 MCHC (RBC) [Mass/Vol] 32.3 g/dL 32-36 [facility] No Panel InformationOrdered By: Dr. Munoz on 06-12-2022 Estimated Creatinine Clearance Calc 381.94 ml/min [facility] Estimated GFR (MDRD) Amer 456 mL/min >60 [facility] Comment on above: GFR Calc Estimated GFR (MDRD) Non-Af Amer 377 mL/min >60 [facility] Comment on above: Non- GFR Calc Troponin I High Sensitivity < 3 pg/mL 3.0-78.0 [facility] Comment on above: Please Note: New Suha t Units and Gender Specific Reference Ranges. For more information see Policy Stat Procedure [place] High Sensitivity Troponin (TNIH) and attachments. 27.5 pg 27.0-32.0 [facility] 14.5 % 11.6-14.6 [facility] 45.3 fl 35.1-43.9 [facility] 1.300 % 0.0-0.9 [facility] 0 % 0-5 [facility] 377 mL/min >60 [facility] 456 mL/min >60 [facility] 381.94 ml/min [facility] 38.9 RATIO 10-20 [facility] < 3 pg/mL 3.0-78.0 [facility] 28.0 mmol/L 21.0-32.0 [facility] Platelets bldOrdered By: Dr. Munoz on 06-12-2022 Platelets (Bld) [#/Vol] 199 10*3/uL 150-450 [facility] Serum or plasma calcium jacinta urement (mass/volume)Ordered By: Dr. Munoz on 06-12-2022 Calcium [Mass/Vol] 8.8 mg/dL 8.5-10.1 [facility] Serum or plasma creatinine m easurement (mass/volume)Ordered By: Dr. Munoz on 06-12-2022 Creatinine [Mass/Vol] 0.28 mg/dL 0.70-1.30 [facility] Comment on above: The validity of the calculated GFR & GFRAA in patients over 70 years has not been determined. Clinical correlation is essential. Serum or plasma urea nitroge n measurement (mass/volume)Ordered By: Dr. Munoz on 06-12-2022 Urea nitrogen [Mass/Vol] 11 mg/dL 7-18 [facility] Thin prep Papanicolaou smear with manual screeningOrdered By: Dr. Munoz on 06-12-2022 Thin prep Papanicolaou smear with manual screening 4 5-15 [facility] Absolute lymphocyte countOrd ered By: Dr. Waite on 06-01-2022 Lymphocytes Auto (Unsp spec) [#/Vol] 2.20 10*3/uL 0.83-4.51 [facility] Basophil percentageOrdered B y: Dr. Waite on 06-01-2022 Basophil percentage 100 mg/dL 74-106 [facility] Basophil percentage 140 mmol/L 136-145 [facility] Basophil percentage 3.6 mmol/L 3.5-5.1 [facility] Basophil percentage 105 mmol/L 98-107 [facility] Basophils (Bld) [#/Vol] 5.2 10*3/uL 4.4-11.0 [facility] Basophils (Bld) [#/Vol] 2.2 10*3/uL 2.0-7.7 [facility] Basophils/100 WBC (Bld) 0.4 % 0-1 [facility] Basophils/100 WBC (Bld) 42.6 % 47-70 [facility] Basophils/100 WBC (Bld) 4.6 % 0-5 [facility] Chloride [Moles/Vol] 105 mmol/L 98-107 [facility] Eosinophils/100 WBC (Bld) 4.6 % 0-5 [facility] Glucose [Mass/Vol] 100 mg/dL 74-106 [facility] Comment on above: Fasting Glucose resu lt from 100 to 125 mg/dL suggests IMPAIRED HOMEOSTASIS per A.D.A. criteria. Neutrophils (Bld) [#/Vol] 2.2 10*3/uL 2.0-7.7 [facility] Neutrophils/100 WBC (Bld) 42.6 % 47-70 [facility] Potassium [Moles/Vol] 3.6 mmol/L 3.5-5.1 [facility] Sodium [Moles/Vol] 140 mmol/L 136-145 [facility] WBC (Bld) [#/Vol] 5.2 10*3/uL 4.4-11.0 [facility] Blood erythrocytes count (nu mber/volume)Ordered By: Dr. Waite on 06-01-2022 RBC (Bld) [#/Vol] 3.90 10*6/uL 4.6-6.2 [facility] Blood hemoglobin measurement (mass/volume)Ordered By: Dr. Waite on 06-01-2022 Hemoglobin (Bld) [Mass/Vol] 11.0 g/dL 13.0-16.5 [facility] Blood lymphocytes/100 leukoc ytesOrdered By: Dr. Waite on 06-01-2022 Lymphocytes/100 WBC (Bld) 42.5 % 19-41 [facility] Blood monocytes/100 leukocyt esOrdered By: Dr. Waite on 06-01-2022 Monocytes/100 WBC (Bld) 9.7 % 0-10 [facility] Blood platelet mean volumeOr dered By: Dr. Waite on 06-01-2022 Platelet mean volume (Bld) [Entitic vol] 10.1 fL 6.2-12.0 [facility] Determination of erythrocyte mean corpuscular volume (MCV)Ordered By: Dr. Waite on 06-01-2022 MCV (RBC) [Entitic vol] 86.4 fL 80-94 [facility] Hematocrit Auto (Bld) [Volum e fraction]Ordered By: Dr. Waite on 06-01-2022 Hematocrit (Bld) [Volume fraction] 33.7 % 40-54 [facility] Laboratory - Chemistry and C hemistry - challengeOrdered By: Dr. Waite on 06-01-2022 CO2 [Moles/Vol] 32.0 mmol/L 21.0-32.0 [facility] Urea nitrogen/Creatinine [Mass ratio] 46.0 mg/mg 10-20 [facility] - Hematology and Cell countsOrdered By: Dr. Waite on 06-01-2022 Erythrocyte distribution width (RBC) [Entitic vol] 46.1 fL 35.1-43.9 [facility] Erythrocyte distribution width (RBC) [Ratio] 14.7 % 11.6-14.6 [facility] Immature granulocytes/100 WBC (Bld) 0.200 % 0.0-0.9 [facility] Comment on above: IG% - Immature Granu locytes (promyelocytes, myelocytes and metamyelocytes) > 1% indicates that a LEFT SHIFT is Present. MCH (RBC) [Entitic mass] 28.2 pg 27.0-32.0 [facility] Nucleated RBC/100 WBC (Bld) [Ratio] 0 % 0-5 [facility] Auto (RBC) [Mass/Vol]Or dered By: Dr. Waite on 06-01-2022 MCHC (RBC) [Mass/Vol] 32.6 g/dL 32-36 [facility] No Panel InformationOrdered By: Dr. Waite on 06-01-2022 Estimated GFR (MDRD) Amer 501 mL/min >60 [facility] Comment on above: GFR Calc Estimated GFR (MDRD) Non-Af Amer 414 mL/min >60 [facility] Comment on above: Non- GFR Calc 28.2 pg 27.0-32.0 [facility] 14.7 % 11.6-14.6 [facility] 46.1 fl 35.1-43.9 [facility] 0.200 % 0.0-0.9 [facility] 0 % 0-5 [facility] 414 mL/min >60 [facility] 501 mL/min >60 [facility] 46.0 RATIO 10-20 [facility] 32.0 mmol/L 21.0-32.0 [facility] Platelets bldOrdered By: Dr. Waite on 06-01-2022 Platelets (Bld) [#/Vol] 183 10*3/uL 150-450 [facility] Serum or plasma calcium jacinta urement (mass/volume)Ordered By: Dr. Waite on 06-01-2022 Calcium [Mass/Vol] 8.8 mg/dL 8.5-10.1 [facility] Serum or plasma creatinine m easurement (mass/volume)Ordered By: Dr. Waite on 06-01-2022 Creatinine [Mass/Vol] 0.26 mg/dL 0.70-1.30 [facility] Comment on above: The validity of the calculated GFR & GFRAA in patients over 70 years has not been determined. Clinical correlation is essential. Serum or plasma urea nitroge n measurement (mass/volume)Ordered By: Dr. Waite on 06-01-2022 Urea nitrogen [Mass/Vol] 12 mg/dL 7-18 [facility] Thin prep Papanicolaou smear with manual screeningOrdered By: Dr. Waite on 06-01-2022 Thin prep Papanicolaou smear with manual screening 3 5-15 [facility] Absolute lymphocyte countOrd ered By: Dr. Conn on 05-04-2022 Lymphocytes Auto (Unsp spec) [#/Vol] 1.95 10*3/uL 0.83-4.51 [facility] Basophil percentageOrdered B y: Dr. Conn on 05-04-2022 Basophil percentage 21.8 ug/mL 10.0-40.0 [facility] Basophil percentage 102 mg/dL 74-106 [facility] Basophil percentage 141 mmol/L 136-145 [facility] Basophil percentage 3.5 mmol/L 3.5-5.1 [facility] Basophil percentage 106 mmol/L 98-107 [facility] Basophils (Bld) [#/Vol] 5.5 10*3/uL 4.4-11.0 [facility] Basophils (Bld) [#/Vol] 2.8 10*3/uL 2.0-7.7 [facility] Basophils/100 WBC (Bld) 0.2 % 0-1 [facility] Basophils/100 WBC (Bld) 50.6 % 47-70 [facility] Basophils/100 WBC (Bld) 3.7 % 0-5 [facility] Chloride [Moles/Vol] 106 mmol/L 98-107 [facility] Eosinophils/100 WBC (Bld) 3.7 % 0-5 [facility] Glucose [Mass/Vol] 102 mg/dL 74-106 [facility] Comment on above: Fasting Glucose resu lt from 100 to 125 mg/dL suggests IMPAIRED HOMEOSTASIS per A.D.A. criteria. Neutrophils (Bld) [#/Vol] 2.8 10*3/uL 2.0-7.7 [facility] Neutrophils/100 WBC (Bld) 50.6 % 47-70 [facility] Potassium [Moles/Vol] 3.5 mmol/L 3.5-5.1 [facility] Sodium [Moles/Vol] 141 mmol/L 136-145 [facility] WBC (Bld) [#/Vol] 5.5 10*3/uL 4.4-11.0 [facility] Blood erythrocytes count (nu mber/volume)Ordered By: Dr. Conn on 05-04-2022 RBC (Bld) [#/Vol] 4.00 10*6/uL 4.6-6.2 [facility] Blood hemoglobin measurement (mass/volume)Ordered By: Dr. Conn on 05-04-2022 Hemoglobin (Bld) [Mass/Vol] 11.3 g/dL 13.0-16.5 [facility] Blood lymphocytes/100 leukoc ytesOrdered By: Dr. Conn on 05-04-2022 Lymphocytes/100 WBC (Bld) 35.6 % 19-41 [facility] Blood monocytes/100 leukocyt esOrdered By: Dr. Conn on 05-04-2022 Monocytes/100 WBC (Bld) 9.7 % 0-10 [facility] Blood platelet mean volumeOr dered By: Dr. Conn on 05-04-2022 Platelet mean volume (Bld) [Entitic vol] 10.8 fL 6.2-12.0 [facility] Determination of erythrocyte mean corpuscular volume (MCV)Ordered By: Dr. Conn on 05-04-2022 MCV (RBC) [Entitic vol] 87.3 fL 80-94 [facility] Hematocrit Auto (Bld) [Volum e fraction]Ordered By: Dr. Conn on 05-04-2022 Hematocrit (Bld) [Volume fraction] 34.9 % 40-54 [facility] - Chemistry and C hemistry - challengeOrdered By: Dr. Conn on 05-04-2022 CO2 [Moles/Vol] 29.0 mmol/L 21.0-32.0 [facility] Urea nitrogen/Creatinine [Mass ratio] 62.5 mg/mg 10-20 [facility] - Hematology and Cell countsOrdered By: Dr. Conn on 05-04-2022 Erythrocyte distribution width (RBC) [Entitic vol] 46.2 fL 35.1-43.9 [facility] Erythrocyte distribution width (RBC) [Ratio] 14.4 % 11.6-14.6 [facility] Immature granulocytes/100 WBC (Bld) 0.200 % 0.0-0.9 [facility] Comment on above: IG% - Immature Granu locytes (promyelocytes, myelocytes and metamyelocytes) > 1% indicates that a LEFT SHIFT is Present. MCH (RBC) [Entitic mass] 28.3 pg 27.0-32.0 [facility] Nucleated RBC/100 WBC (Bld) [Ratio] 0 % 0-5 [facility] MCHC Auto (RBC) [Mass/Vol]Or dered By: Dr. Conn on 05-04-2022 MCHC (RBC) [Mass/Vol] 32.4 g/dL 32-36 [facility] No Panel InformationOrdered By: Dr. Conn on 05-04-2022 Estimated GFR (MDRD) Amer 478 mL/min >60 [facility] Comment on above: GFR Calc Estimated GFR (MDRD) Non-Af Amer 395 mL/min >60 [facility] Comment on above: Non- GFR Calc 28.3 pg 27.0-32.0 [facility] 14.4 % 11.6-14.6 [facility] 46.2 fl 35.1-43.9 [facility] 0.200 % 0.0-0.9 [facility] 0 % 0-5 [facility] 395 mL/min >60 [facility] 478 mL/min >60 [facility] 62.5 RATIO 10-20 [facility] 29.0 mmol/L 21.0-32.0 [facility] Platelets bldOrdered By: Dr. Conn on 05-04-2022 Platelets (Bld) [#/Vol] 180 10*3/uL 150-450 [facility] Serum or plasma calcium jacinta urement (mass/volume)Ordered By: Dr. Conn on 05-04-2022 Calcium [Mass/Vol] 8.6 mg/dL 8.5-10.1 [facility] Serum or plasma creatinine m easurement (mass/volume)Ordered By: Dr. Conn on 05-04-2022 Creatinine [Mass/Vol] 0.27 mg/dL 0.70-1.30 [facility] Comment on above: The validity of the calculated GFR & GFRAA in patients over 70 years has not been determined. Clinical correlation is essential. Serum or plasma transthyreti n measurement (mass/volume)Ordered By: Dr. Conn on 05-04-2022 Prealbumin [Mass/Vol] 24.1 mg/dL 20.0-40.0 [facility] Serum or plasma urea nitroge n measurement (mass/volume)Ordered By: Dr. Conn on 05-04-2022 Urea nitrogen [Mass/Vol] 17 mg/dL 7-18 [facility] Thin prep Papanicolaou smear with manual screeningOrdered By: Dr. Conn on 05-04-2022 Thin prep Papanicolaou smear with manual screening 6 5-15 [facility] CNPNon 04-14-2022 CNPN Telephone (CORSMN) -------- KRISS MICHAEL ([id number]) 1980 Date Time Provider Department 04/14/22 Yola LEAVITT During your visit today, we recorded the following information about you: Ebony Boateng 04/14/2022 12:39 PM Signed The patient had a Colostomy done by Dr leavitt. The patient 's mother (POA) States he is having issues with prolapse of colon, would like to see what could be done about this,. [phone] Ashly (mom) Geetha Walter RN 04/14/2022 1:40 PM Signed Called and spoke with mother Matteo Scheduled VV for her to further discuss options for Dr Laevitt Advised initially that in person visit mar [...] Fully Assessed Reason for Visit: Patient Update [7614] Patient Question [7257] Prescriptions as of 04/14/2022 - baclofen (LIORESAL) [...] infection [A4 (more content not included)... Normal [facility] CNPN Telephone (SansanN) -------- KRISS MICHAEL ([id number]) 1980 M Date Time Provider Department 04/14/22 [...] p*04/05/2018 Aspiration (more content not included)... Normal [facility] Absolute lymphocyte countOrd ered By: Dr. Alexandre on 04-01-2022 Lymphocytes Auto (Unsp spec) [#/Vol] 2.64 10*3/uL 0.83-4.51 [facility] Basophil percentageOrdered B y: Dr. Alexandre on 04-01-2022 Basophil percentage 122 mg/dL 74-106 [facility] Basophil percentage 145 mmol/L 136-145 [facility] Basophil percentage 3.5 mmol/L 3.5-5.1 [facility] Basophil percentage 110 mmol/L 98-107 [facility] Basophils (Bld) [#/Vol] 6.6 10*3/uL 4.4-11.0 [facility] Basophils (Bld) [#/Vol] 3.1 10*3/uL 2.0-7.7 [facility] Basophils/100 WBC (Bld) 0.2 % 0-1 [facility] Basophils/100 WBC (Bld) 46.7 % 47-70 [facility] Basophils/100 WBC (Bld) 2.1 % 0-5 [facility] Chloride [Moles/Vol] 110 mmol/L 98-107 [facility] Eosinophils/100 WBC (Bld) 2.1 % 0-5 [facility] Glucose [Mass/Vol] 122 mg/dL 74-106 [facility] Comment on above: Fasting Glucose resu lt from 100 to 125 mg/dL suggests IMPAIRED HOMEOSTASIS per A.D.A. criteria. Neutrophils (Bld) [#/Vol] 3.1 10*3/uL 2.0-7.7 [facility] Neutrophils/100 WBC (Bld) 46.7 % 47-70 [facility] Potassium [Moles/Vol] 3.5 mmol/L 3.5-5.1 [facility] Sodium [Moles/Vol] 145 mmol/L 136-145 [facility] WBC (Bld) [#/Vol] 6.6 10*3/uL 4.4-11.0 [facility] Blood erythrocytes count (nu mber/volume)Ordered By: Dr. Alexandre on 04-01-2022 RBC (Bld) [#/Vol] 3.33 10*6/uL 4.6-6.2 [facility] Blood hemoglobin measurement (mass/volume)Ordered By: Dr. Alexandre on 04-01-2022 Hemoglobin (Bld) [Mass/Vol] 9.2 g/dL 13.0-16.5 [facility] Blood lymphocytes/100 leukoc ytesOrdered By: Dr. Alexandre on 04-01-2022 Lymphocytes/100 WBC (Bld) 39.9 % 19-41 [facility] Blood monocytes/100 leukocyt esOrdered By: Dr. Alexandre on 04-01-2022 Monocytes/100 WBC (Bld) 10.0 % 0-10 [facility] Blood platelet mean volumeOr dered By: Dr. Alexandre on 04-01-2022 Platelet mean volume (Bld) [Entitic vol] 9.6 fL 6.2-12.0 [facility] Determination of erythrocyte mean corpuscular volume (MCV)Ordered By: Dr. Alexandre on 04-01-2022 MCV (RBC) [Entitic vol] 88.6 fL 80-94 [facility] Hematocrit Auto (Bld) [Volum e fraction]Ordered By: Dr. Alexandre on 04-01-2022 Hematocrit (Bld) [Volume fraction] 29.5 % 40-54 [facility] Laboratory - Chemistry and C hemistry - challengeOrdered By: Dr. Alexandre on 04-01-2022 CO2 [Moles/Vol] 29.0 mmol/L 21.0-32.0 [facility] Urea nitrogen/Creatinine [Mass ratio] 43.7 mg/mg 10-20 [facility] Laboratory - Hematology and Cell countsOrdered By: Dr. Alexandre on 04-01-2022 Erythrocyte distribution width (RBC) [Entitic vol] 48.4 fL 35.1-43.9 [facility] Erythrocyte distribution width (RBC) [Ratio] 15.0 % 11.6-14.6 [facility] Immature granulocytes/100 WBC (Bld) 1.100 % 0.0-0.9 [facility] Comment on above: IG% - Immature Granu locytes (promyelocytes, myelocytes and metamyelocytes) > 1% indicates that a LEFT SHIFT is Present. MCH (RBC) [Entitic mass] 27.6 pg 27.0-32.0 [facility] Nucleated RBC/100 WBC (Bld) [Ratio] 0 % 0-5 [facility] MCHC Auto (RBC) [Mass/Vol]Or dered By: Dr. Alexandre on 04-01-2022 MCHC (RBC) [Mass/Vol] 31.2 g/dL 32-36 [facility] No Panel InformationOrdered By: Dr. Alexandre on 04-01-2022 Estimated Creatinine Clearance Calc 460.75 ml/min [facility] Estimated GFR (MDRD) Amer 583 mL/min >60 [facility] Comment on above: GFR Calc Estimated GFR (MDRD) Non-Af Amer 482 mL/min >60 [facility] Comment on above: Non- GFR Calc 27.6 pg 27.0-32.0 [facility] 15.0 % 11.6-14.6 [facility] 48.4 fl 35.1-43.9 [facility] 1.100 % 0.0-0.9 [facility] 0 % 0-5 [facility] 482 mL/min >60 [facility] 583 mL/min >60 [facility] 460.75 ml/min [facility] 43.7 RATIO 10-20 [facility] 29.0 mmol/L 21.0-32.0 [facility] Platelets bldOrdered By: Dr. Alexandre on 04-01-2022 Platelets (Bld) [#/Vol] 237 10*3/uL 150-450 [facility] Serum or plasma calcium jacinta urement (mass/volume)Ordered By: Dr. Alexandre on 04-01-2022 Calcium [Mass/Vol] 8.2 mg/dL 8.5-10.1 [facility] Serum or plasma creatinine m easurement (mass/volume)Ordered By: Dr. Alexandre on 04-01-2022 Creatinine [Mass/Vol] 0.23 mg/dL 0.70-1.30 [facility] Comment on above: The validity of the calculated GFR & GFRAA in patients over 70 years has not been determined. Clinical correlation is essential. Serum or plasma urea nitroge n measurement (mass/volume)Ordered By: Dr. Alexandre on 04-01-2022 Urea nitrogen [Mass/Vol] 10 mg/dL 7-18 [facility] Thin prep Papanicolaou smear with manual screeningOrdered By: Dr. Alexandre on 04-01-2022 Thin prep Papanicolaou smear with manual screening 6 5-15 [facility] Basophil percentageOrdered B y: Dr. Dillard on 03-30-2022 Basophil percentage 7.2 g/dL 6.4-8.2 [facility] Basophil percentage 0.20 mg/dL 0.20-1.00 [facility] Bilirubin [Mass/Vol] 0.20 mg/dL 0.20-1.00 [facility] Comment on above: For patients on eltr ombopag therapy, use of [employer] [place] TBIL is not recommended. Protein [Mass/Vol] 7.2 g/dL 6.4-8.2 [facility] Laboratory - Chemistry and C hemistry - challengeOrdered By: Dr. Dillard on 03-30-2022 ALP [Catalytic activity/Vol] 79 U/L 45-117 [facility] ALT [Catalytic activity/Vol] 19 U/L 16-61 [facility] Globulin (S) [Mass/Vol] 4.5 g/dL 2.2-4.2 [facility] Laboratory - Microbiology an d Antimicrobial susceptibilityOrdered By: Dr. De La Torre on 03-30-2022 Bacteria identified Cx Nom (Bld) No growth in 5 days. [facility] No Panel InformationOrdered By: Dr. Dillard on 03-30-2022 4.5 g/dL 2.2-4.2 [facility] 79 U/L 45-117 [facility] 19 U/L 16-61 [facility] No Panel InformationOrdered By: Dr. De La Torre on 03-30-2022 No growth in 5 days. [facility] Serum or plasma albumin jacinta urement (mass/volume)Ordered By: Dr. Dillard on 03-30-2022 Albumin [Mass/Vol] 2.7 g/dL 3.2-5.0 [facility] Serum or plasma albumin/glob ulin mass ratioOrdered By: Dr. Dillard on 03-30-2022 Albumin/Globulin [Mass ratio] 0.6 {ratio} 0.9-2.4 [facility] Thin prep Papanicolaou smear with manual screeningOrdered By: Dr. Dillard on 03-30-2022 Thin prep Papanicolaou smear with manual screening 9 U/L 15-37 [facility] Bacteria identified Respirat ory culture Nom (Unsp spec)Ordered By: Dr. De La Torre on 03-27-2022 Respiratory Culture Proteus mirabilis [facility] Respiratory Culture Streptococcus agalactiae (B) [facility] Microbial respiratory culture Proteus mirabilis [facility] Microbial respiratory culture Streptococcus agalactiae (B) [facility] Basophil percentageOrdered B y: Dr. Dillard on 03-25-2022 Basophil percentage 0.7 mmol/L 0.4-2.0 [facility] Lactate [Moles/Vol] 0.7 mmol/L 0.4-2.0 [facility] Gram stain for investigation of transfusion reactionOrdered By: Dr. De La Torre on 03-25-2022 Microscopic observation Gram stain Nom (Unsp spec) [facility] Laboratory - Microbiology an d Antimicrobial susceptibilityOrdered By: Dr. Echavarria on 03-25-2022 Respiratory pathogens DNA and RNA 12b panel YAYO+probe (Unsp spec) [facility] Absolute lymphocyte countOrd ered By: Dr. eD La Torre on 03-24-2022 Lymphocytes Auto (Unsp spec) [#/Vol] 0.99 10*3/uL 0.83-4.51 [facility] Basophil percentageOrdered B y: Dr. De La Torre on 03-24-2022 Basophil percentage 2.9 mmol/L 0.4-2.0 [facility] Basophil percentage 0-5 SEEN /hpf 0-5 [facility] Basophil percentage 145 mg/dL 74-106 [facility] Basophil percentage 133 mmol/L 136-145 [facility] Basophil percentage 3.8 mmol/L 3.5-5.1 [facility] Basophil percentage 99 mmol/L 98-107 [facility] Basophils (Bld) [#/Vol] 7.5 10*3/uL 4.4-11.0 [facility] Basophils (Bld) [#/Vol] 6.0 10*3/uL 2.0-7.7 [facility] Basophils/100 WBC (Bld) 0.3 % 0-1 [facility] Basophils/100 WBC (Bld) 79.9 % 47-70 [facility] Basophils/100 WBC (Bld) 1.3 % 0-5 [facility] Chloride [Moles/Vol] 99 mmol/L 98-107 [facility] Eosinophils/100 WBC (Bld) 1.3 % 0-5 [facility] Glucose [Mass/Vol] 145 mg/dL 74-106 [facility] Comment on above: Fasting Glucose resu lt greater than or equal to 126 mg/dL suggests DIABETES MELLITUS per A.D.A. criteria. Lactate [Moles/Vol] 2.7 mmol/L 0.4-2.0 [facility] Comment on above: Critical Result(s) C alled at: 18:44:06 03/24/2022 by: [facility] [place]. Results read back by same. Neutrophils (Bld) [#/Vol] 6.0 10*3/uL 2.0-7.7 [facility] Neutrophils/100 WBC (Bld) 79.9 % 47-70 [facility] Potassium [Moles/Vol] 3.8 mmol/L 3.5-5.1 [facility] Sodium [Moles/Vol] 133 mmol/L 136-145 [facility] WBC (Bld) [#/Vol] 7.5 10*3/uL 4.4-11.0 [facility] Basophil percentageOrdered B y: Dr. Echavarria on 03-24-2022 Basophil percentage 8.3 g/dL 6.4-8.2 [facility] Basophil percentage 0.30 mg/dL 0.20-1.00 [facility] Bilirubin Test strip Ql (U)O rdered By: Dr. De La Torre on 03-24-2022 Bilirubin Ql (U) Negative Negative [facility] Blood erythrocytes count (nu mber/volume)Ordered By: Dr. De La Torre on 03-24-2022 RBC (Bld) [#/Vol] 4.25 10*6/uL 4.6-6.2 [facility] Blood hemoglobin measurement (mass/volume)Ordered By: Dr. De La Torre on 03-24-2022 Hemoglobin (Bld) [Mass/Vol] 11.5 g/dL 13.0-16.5 [facility] Blood lymphocytes/100 leukoc ytesOrdered By: Dr. De La Torre on 03-24-2022 Lymphocytes/100 WBC (Bld) 13.1 % 19-41 [facility] Blood monocytes/100 leukocyt esOrdered By: Dr. De La Torre on 03-24-2022 Monocytes/100 WBC (Bld) 5.3 % 0-10 [facility] Blood platelet mean volumeOr dered By: Dr. De La Torre on 03-24-2022 Platelet mean volume (Bld) [Entitic vol] 10.4 fL 6.2-12.0 [facility] Determination of erythrocyte mean corpuscular volume (MCV)Ordered By: Dr. De La Torre on 03-24-2022 MCV (RBC) [Entitic vol] 85.4 fL 80-94 [facility] Direct bilirubinOrdered By: Dr. Echavarria on 03-24-2022 Bilirubin.direct [Mass/Vol] 0.07 mg/dL 0.00-0.30 [facility] Hematocrit Auto (Bld) [Volum e fraction]Ordered By: Dr. De La Torre on 03-24-2022 Hematocrit (Bld) [Volume fraction] 36.3 % 40-54 [facility] Influenza virus A and B and SARS-CoV-2 (COVID-19) Ag panel - Upper respiratory specimOrdered By: Dr. De La Torre on 03-24-2022 SARS-CoV-2 (COVID-19) RNA YAYO+probe Ql (Resp) [facility] Ketones Test strip Ql (U)Ord ered By: Dr. De La Torre on 03-24-2022 Ketones Ql (U) 15 mg/dl Negative [facility] Laboratory - Chemistry and C hemistry - challengeOrdered By: Dr. De La Torre on 03-24-2022 CO2 [Moles/Vol] 23.0 mmol/L 21.0-32.0 [facility] Urea nitrogen/Creatinine [Mass ratio] 22.2 mg/mg 10-20 [facility] Laboratory - Hematology and Cell countsOrdered By: Dr. De La Torre on 03-24-2022 Erythrocyte distribution width (RBC) [Entitic vol] 43.3 fL 35.1-43.9 [facility] Erythrocyte distribution width (RBC) [Ratio] 14.0 % 11.6-14.6 [facility] Immature granulocytes/100 WBC (Bld) 0.100 % 0.0-0.9 [facility] Comment on above: IG% - Immature Granu locytes (promyelocytes, myelocytes and metamyelocytes) > 1% indicates that a LEFT SHIFT is Present. MCH (RBC) [Entitic mass] 27.1 pg 27.0-32.0 [facility] Nucleated RBC/100 WBC (Bld) [Ratio] 0 % 0-5 [facility] MCHC Auto (RBC) [Mass/Vol]Or dered By: Dr. De La Torre on 03-24-2022 MCHC (RBC) [Mass/Vol] 31.7 g/dL 32-36 [facility] Mucus LM Ql (Urine sed)Order ed By: Dr. De La Torre on 03-24-2022 Mucus Ql (Urine sed) 0 SEEN /hpf [facility] Nitrite Test strip Ql (U)Ord ered By: Dr. De La Torre on 03-24-2022 Nitrite Ql (U) Negative Negative [facility] No Panel InformationOrdered By: Dr. De La Torre on 03-24-2022 Estimated Creatinine Clearance Calc 154.32 ml/min [facility] Estimated GFR (MDRD) Amer 267 mL/min >60 [facility] Comment on above: GFR Calc Estimated GFR (MDRD) Non-Af Amer 220 mL/min >60 [facility] Comment on above: Non- GFR Calc 27.1 pg 27.0-32.0 [facility] 14.0 % 11.6-14.6 [facility] 43.3 fl 35.1-43.9 [facility] 0.100 % 0.0-0.9 [facility] 0 % 0-5 [facility] 220 mL/min >60 [facility] 267 mL/min >60 [facility] 154.32 ml/min [facility] 22.2 RATIO 10-20 [facility] 23.0 mmol/L 21.0-32.0 [facility] No Panel InformationOrdered By: Dr. Echavarria on 03-24-2022 4.9 g/dL 2.2-4.2 [facility] 137 U/L 45-117 [facility] 20 U/L 16-61 [facility] Platelets bldOrdered By: Dr. De La Torre on 03-24-2022 Platelets (Bld) [#/Vol] 141 10*3/uL 150-450 [facility] Protein Test strip Ql (U)Ord ered By: Dr. De La Torre on 03-24-2022 Protein Ql (U) 30 mg/dl Negative [facility] Serum or plasma albumin jacinta urement (mass/volume)Ordered By: Dr. Echavarria on 03-24-2022 Albumin [Mass/Vol] 3.4 g/dL 3.2-5.0 [facility] Serum or plasma calcium jacinta urement (mass/volume)Ordered By: Dr. De La Torre on 03-24-2022 Calcium [Mass/Vol] 8.6 mg/dL 8.5-10.1 [facility] Serum or plasma creatinine m easurement (mass/volume)Ordered By: Dr. De La Torre on 03-24-2022 Creatinine [Mass/Vol] 0.45 mg/dL 0.70-1.30 [facility] Comment on above: The validity of the calculated GFR & GFRAA in patients over 70 years has not been determined. Clinical correlation is essential. Serum or plasma urea nitroge n measurement (mass/volume)Ordered By: Dr. De La Torre on 03-24-2022 Urea nitrogen [Mass/Vol] 10 mg/dL 7-18 [facility] Squamous epithelial cells de tection in urine sediment by light microscopyOrdered By: Dr. De La Torre on 03-24-2022 Epithelial cells.squamous LM Ql (Urine sed) 0 SEEN /hpf 0-5 [facility] Thin prep Papanicolaou smear with manual screeningOrdered By: Dr. De La Torre on 03-24-2022 Thin prep Papanicolaou smear with manual screening 11 5-15 [facility] Thin prep Papanicolaou smear with manual screeningOrdered By: Dr. Echavarria on 03-24-2022 Thin prep Papanicolaou smear with manual screening 22 U/L 15-37 [facility] Urine blood detectionOrdered By: Dr. De La Torre on 03-24-2022 RBC Ql (U) 10 /ul Negative [facility] RBC Ql (U) 0-5 SEEN /hpf 0-5 [facility] Urine clarityOrdered By: Dr. De La Torre on 03-24-2022 Clarity (U) Clear Clear [facility] Urine color determinationOrd ered By: Dr. De La Torre on 03-24-2022 Color (U) Yellow Yellow [facility] Urine glucose detectionOrder ed By: Dr. De La Torre on 03-24-2022 Glucose Ql (U) Normal mg/dl Normal [facility] Urine leukocyte esterase det ection by dipstickOrdered By: Dr. De La Torre on 03-24-2022 Leukocyte esterase Test strip Ql (U) 25 /ul Negative [facility] Urine pHOrdered By: Dr. Walter hidalgo on 03-24-2022 pH (U) 7.0 [pH] 5.0 - 8.0 [facility] Urine sediment bacteria coun t by microscopy (number/high power field)Ordered By: Dr. De La Torre on 03-24-2022 Bacteria LM.HPF (Urine sed) [#/Area] 0 /[HPF] None Seen [facility] Urine specific gravity measu rementOrdered By: Dr. De La Torre on 03-24-2022 Specific gravity (U) [Rel density] 1.005 1.002-1.030 [facility] Urobilinogen Auto test strip Ql (U)Ordered By: Dr. De La Torre on 03-24-2022 Urobilinogen Ql (U) Normal mg/dl Normal [facility] Absolute lymphocyte countOrd ered By: Dr. Waite on 03-23-2022 Lymphocytes Auto (Unsp spec) [#/Vol] 1.82 10*3/uL 0.83-4.51 [facility] Basophil percentageOrdered B y: Dr. Waite on 03-23-2022 Basophil percentage 104 mg/dL 74-106 [facility] Basophil percentage 139 mmol/L 136-145 [facility] Basophil percentage 3.8 mmol/L 3.5-5.1 [facility] Basophil percentage 104 mmol/L 98-107 [facility] Basophils (Bld) [#/Vol] 6.6 10*3/uL 4.4-11.0 [facility] Basophils (Bld) [#/Vol] 3.9 10*3/uL 2.0-7.7 [facility] Basophils/100 WBC (Bld) 0.2 % 0-1 [facility] Basophils/100 WBC (Bld) 59.9 % 47-70 [facility] Basophils/100 WBC (Bld) 3.8 % 0-5 [facility] Chloride [Moles/Vol] 104 mmol/L 98-107 [facility] Eosinophils/100 WBC (Bld) 3.8 % 0-5 [facility] Glucose [Mass/Vol] 104 mg/dL 74-106 [facility] Comment on above: Fasting Glucose resu lt from 100 to 125 mg/dL suggests IMPAIRED HOMEOSTASIS per A.D.A. criteria. Neutrophils (Bld) [#/Vol] 3.9 10*3/uL 2.0-7.7 [facility] Neutrophils/100 WBC (Bld) 59.9 % 47-70 [facility] Potassium [Moles/Vol] 3.8 mmol/L 3.5-5.1 [facility] Sodium [Moles/Vol] 139 mmol/L 136-145 [facility] WBC (Bld) [#/Vol] 6.6 10*3/uL 4.4-11.0 [facility] Blood erythrocytes count (nu mber/volume)Ordered By: Dr. Waite on 03-23-2022 RBC (Bld) [#/Vol] 4.00 10*6/uL 4.6-6.2 [facility] Blood hemoglobin measurement (mass/volume)Ordered By: Dr. Waite on 03-23-2022 Hemoglobin (Bld) [Mass/Vol] 10.8 g/dL 13.0-16.5 [facility] Blood lymphocytes/100 leukoc ytesOrdered By: Dr. Waite on 03-23-2022 Lymphocytes/100 WBC (Bld) 27.7 % 19-41 [facility] Blood monocytes/100 leukocyt esOrdered By: Dr. Waite on 03-23-2022 Monocytes/100 WBC (Bld) 7.9 % 0-10 [facility] Blood platelet mean volumeOr dered By: Dr. Waite on 03-23-2022 Platelet mean volume (Bld) [Entitic vol] 10.2 fL 6.2-12.0 [facility] Determination of erythrocyte mean corpuscular volume (MCV)Ordered By: Dr. Waite on 03-23-2022 MCV (RBC) [Entitic vol] 86.0 fL 80-94 [facility] Hematocrit Auto (Bld) [Volum e fraction]Ordered By: Dr. Waite on 03-23-2022 Hematocrit (Bld) [Volume fraction] 34.4 % 40-54 [facility] Laboratory - Chemistry and C hemistry - challengeOrdered By: Dr. Waite on 03-23-2022 CO2 [Moles/Vol] 31.0 mmol/L 21.0-32.0 [facility] Urea nitrogen/Creatinine [Mass ratio] 60.0 mg/mg 10-20 [facility] Laboratory - Hematology and Cell countsOrdered By: Dr. Waite on 03-23-2022 Erythrocyte distribution width (RBC) [Entitic vol] 43.8 fL 35.1-43.9 [facility] Erythrocyte distribution width (RBC) [Ratio] 13.9 % 11.6-14.6 [facility] Immature granulocytes/100 WBC (Bld) 0.500 % 0.0-0.9 [facility] Comment on above: IG% - Immature Granu locytes (promyelocytes, myelocytes and metamyelocytes) > 1% indicates that a LEFT SHIFT is Present. MCH (RBC) [Entitic mass] 27.0 pg 27.0-32.0 [facility] Nucleated RBC/100 WBC (Bld) [Ratio] 0 % 0-5 [facility] MCHC Auto (RBC) [Mass/Vol]Or dered By: Dr. Waite on 03-23-2022 MCHC (RBC) [Mass/Vol] 31.4 g/dL 32-36 [facility] No Panel InformationOrdered By: Dr. Waite on 03-23-2022 Estimated GFR (MDRD) Amer 527 mL/min >60 [facility] Comment on above: GFR Calc Estimated GFR (MDRD) Non-Af Amer 435 mL/min >60 [facility] Comment on above: Non- GFR Calc 27.0 pg 27.0-32.0 [facility] 13.9 % 11.6-14.6 [facility] 43.8 fl 35.1-43.9 [facility] 0.500 % 0.0-0.9 [facility] 0 % 0-5 [facility] 435 mL/min >60 [facility] 527 mL/min >60 [facility] 60.0 RATIO 10-20 [facility] 31.0 mmol/L 21.0-32.0 [facility] Platelets bldOrdered By: Dr. Waite on 03-23-2022 Platelets (Bld) [#/Vol] 169 10*3/uL 150-450 [facility] Serum or plasma calcium jacinta urement (mass/volume)Ordered By: Dr. Waite on 03-23-2022 Calcium [Mass/Vol] 8.3 mg/dL 8.5-10.1 [facility] Serum or plasma creatinine m easurement (mass/volume)Ordered By: Dr. Waite on 03-23-2022 Creatinine [Mass/Vol] 0.25 mg/dL 0.70-1.30 [facility] Comment on above: The validity of the calculated GFR & GFRAA in patients over 70 years has not been determined. Clinical correlation is essential. Serum or plasma urea nitroge n measurement (mass/volume)Ordered By: Dr. Waite on 03-23-2022 Urea nitrogen [Mass/Vol] 15 mg/dL 7-18 [facility] Thin prep Papanicolaou smear with manual screeningOrdered By: Dr. Waite on 03-23-2022 Thin prep Papanicolaou smear with manual screening 4 5-15 [facility] Absolute lymphocyte countOrd ered By: Dr. De La Torre on 02-24-2022 Lymphocytes Auto (Unsp spec) [#/Vol] 2.18 10*3/uL 0.83-4.51 [facility] Basophil percentageOrdered B y: Dr. De La Torre on 02-24-2022 Basophil percentage 110 mg/dL 74-106 [facility] Basophil percentage 8.8 g/dL 6.4-8.2 [facility] Basophil percentage 0.20 mg/dL 0.20-1.00 [facility] Basophil percentage 135 mmol/L 136-145 [facility] Basophil percentage 4.2 mmol/L 3.5-5.1 [facility] Basophil percentage 102 mmol/L 98-107 [facility] Basophils (Bld) [#/Vol] 7.9 10*3/uL 4.4-11.0 [facility] Basophils (Bld) [#/Vol] 4.6 10*3/uL 2.0-7.7 [facility] Basophils/100 WBC (Bld) 0.3 % 0-1 [facility] Basophils/100 WBC (Bld) 58.7 % 47-70 [facility] Basophils/100 WBC (Bld) 4.4 % 0-5 [facility] Bilirubin [Mass/Vol] 0.20 mg/dL 0.20-1.00 [facility] Comment on above: For patients on eltr ombopag therapy, use of [employer] TBIL is not recommended. Chloride [Moles/Vol] 102 mmol/L 98-107 [facility] Eosinophils/100 WBC (Bld) 4.4 % 0-5 [facility] Glucose [Mass/Vol] 110 mg/dL 74-106 [facility] Comment on above: Fasting Glucose resu lt from 100 to 125 mg/dL suggests IMPAIRED HOMEOSTASIS per A.D.A. criteria. Neutrophils (Bld) [#/Vol] 4.6 10*3/uL 2.0-7.7 [facility] Neutrophils/100 WBC (Bld) 58.7 % 47-70 [facility] Potassium [Moles/Vol] 4.2 mmol/L 3.5-5.1 [facility] Protein [Mass/Vol] 8.8 g/dL 6.4-8.2 [facility] Sodium [Moles/Vol] 135 mmol/L 136-145 [facility] WBC (Bld) [#/Vol] 7.9 10*3/uL 4.4-11.0 [facility] Blood erythrocytes count (nu mber/volume)Ordered By: Dr. De La Torre on 02-24-2022 RBC (Bld) [#/Vol] 4.41 10*6/uL 4.6-6.2 [facility] Blood hemoglobin measurement (mass/volume)Ordered By: Dr. De La Torre on 02-24-2022 Hemoglobin (Bld) [Mass/Vol] 12.1 g/dL 13.0-16.5 [facility] Blood lymphocytes/100 leukoc ytesOrdered By: Dr. De La Torre on 02-24-2022 Lymphocytes/100 WBC (Bld) 27.6 % 19-41 [facility] Blood monocytes/100 leukocyt esOrdered By: Dr. De La Torre on 02-24-2022 Monocytes/100 WBC (Bld) 8.7 % 0-10 [facility] Blood platelet mean volumeOr dered By: Dr. De La Torre on 02-24-2022 Platelet mean volume (Bld) [Entitic vol] 9.7 fL 6.2-12.0 [facility] Determination of erythrocyte mean corpuscular volume (MCV)Ordered By: Dr. De La Torre on 02-24-2022 MCV (RBC) [Entitic vol] 85.0 fL 80-94 [facility] Hematocrit Auto (Bld) [Volum e fraction]Ordered By: Dr. De La Torre on 02-24-2022 Hematocrit (Bld) [Volume fraction] 37.5 % 40-54 [facility] Laboratory - Chemistry and C hemistry - challengeOrdered By: Dr. De La Torre on 02-24-2022 ALP [Catalytic activity/Vol] 162 U/L 45-117 [facility] ALT [Catalytic activity/Vol] 23 U/L 16-61 [facility] CO2 [Moles/Vol] 26.0 mmol/L 21.0-32.0 [facility] Globulin (S) [Mass/Vol] 5.4 g/dL 2.2-4.2 [facility] Urea nitrogen/Creatinine [Mass ratio] 34.3 mg/mg 10-20 [facility] - Hematology and Cell countsOrdered By: Dr. De La Torre on 02-24-2022 Erythrocyte distribution width (RBC) [Entitic vol] 41.9 fL 35.1-43.9 [facility] Erythrocyte distribution width (RBC) [Ratio] 13.4 % 11.6-14.6 [facility] Immature granulocytes/100 WBC (Bld) 0.300 % 0.0-0.9 [facility] Comment on above: IG% - Immature Granu locytes (promyelocytes, myelocytes and metamyelocytes) > 1% indicates that a LEFT SHIFT is Present. MCH (RBC) [Entitic mass] 27.4 pg 27.0-32.0 [facility] Nucleated RBC/100 WBC (Bld) [Ratio] 0 % 0-5 [facility] MCHC Auto (RBC) [Mass/Vol]Or dered By: Dr. De La Torre on 02-24-2022 MCHC (RBC) [Mass/Vol] 32.3 g/dL 32-36 [facility] No Panel InformationOrdered By: Dr. De La Torre on 02-24-2022 Estimated Creatinine Clearance Calc 169.38 ml/min [facility] Estimated GFR (MDRD) Amer 299 mL/min >60 [facility] Comment on above: GFR Calc Estimated GFR (MDRD) Non-Af Amer 247 mL/min >60 [facility] Comment on above: Non- GFR Calc 27.4 pg 27.0-32.0 [facility] 13.4 % 11.6-14.6 [facility] 41.9 fl 35.1-43.9 [facility] 0.300 % 0.0-0.9 [facility] 0 % 0-5 [facility] 247 mL/min >60 [facility] 299 mL/min >60 [facility] 169.38 ml/min [facility] 34.3 RATIO 10-20 [facility] 5.4 g/dL 2.2-4.2 [facility] 162 U/L 45-117 [facility] 23 U/L 16-61 [facility] 26.0 mmol/L 21.0-32.0 [facility] Platelets bldOrdered By: Dr. De La Torre on 02-24-2022 Platelets (Bld) [#/Vol] 210 10*3/uL 150-450 [facility] Serum or plasma albumin jacinta urement (mass/volume)Ordered By: Dr. De La Torre on 02-24-2022 Albumin [Mass/Vol] 3.4 g/dL 3.2-5.0 [facility] Serum or plasma albumin/glob ulin mass ratioOrdered By: Dr. De La Torre on 02-24-2022 Albumin/Globulin [Mass ratio] 0.6 {ratio} 0.9-2.4 [facility] Serum or plasma calcium jacinta urement (mass/volume)Ordered By: Dr. De La Torre on 02-24-2022 Calcium [Mass/Vol] 9.0 mg/dL 8.5-10.1 [facility] Serum or plasma creatinine m easurement (mass/volume)Ordered By: Dr. De La Torre on 02-24-2022 Creatinine [Mass/Vol] 0.41 mg/dL 0.70-1.30 [facility] Comment on above: The validity of the calculated GFR & GFRAA in patients over 70 years has not been determined. Clinical correlation is essential. Serum or plasma urea nitroge n measurement (mass/volume)Ordered By: Dr. De La Torre on 02-24-2022 Urea nitrogen [Mass/Vol] 14 mg/dL 7-18 [facility] Thin prep Papanicolaou smear with manual screeningOrdered By: Dr. De La Torre on 02-24-2022 Thin prep Papanicolaou smear with manual screening 11 U/L 15-37 [facility] Thin prep Papanicolaou smear with manual screening 7 5-15 [facility] Absolute lymphocyte countOrd ered By: Dr. Waite on 02-06-2022 Lymphocytes Auto (Unsp spec) [#/Vol] 1.84 10*3/uL 0.83-4.51 [facility] Basophil percentageOrdered B y: Dr. Waite on 02-06-2022 Basophil percentage 113 mg/dL 74-106 [facility] Basophil percentage 138 mmol/L 136-145 [facility] Basophil percentage 3.8 mmol/L 3.5-5.1 [facility] Basophil percentage 103 mmol/L 98-107 [facility] Basophils (Bld) [#/Vol] 7.8 10*3/uL 4.4-11.0 [facility] Basophils (Bld) [#/Vol] 5.1 10*3/uL 2.0-7.7 [facility] Basophils/100 WBC (Bld) 0.1 % 0-1 [facility] Basophils/100 WBC (Bld) 65.4 % 47-70 [facility] Basophils/100 WBC (Bld) 4.0 % 0-5 [facility] Chloride [Moles/Vol] 103 mmol/L 98-107 [facility] Eosinophils/100 WBC (Bld) 4.0 % 0-5 [facility] Glucose [Mass/Vol] 113 mg/dL 74-106 [facility] Comment on above: Fasting Glucose resu lt from 100 to 125 mg/dL suggests IMPAIRED HOMEOSTASIS per A.D.A. criteria. Neutrophils (Bld) [#/Vol] 5.1 10*3/uL 2.0-7.7 [facility] Neutrophils/100 WBC (Bld) 65.4 % 47-70 [facility] Potassium [Moles/Vol] 3.8 mmol/L 3.5-5.1 [facility] Sodium [Moles/Vol] 138 mmol/L 136-145 [facility] WBC (Bld) [#/Vol] 7.8 10*3/uL 4.4-11.0 [facility] Blood erythrocytes count (nu mber/volume)Ordered By: Dr. Waite on 02-06-2022 RBC (Bld) [#/Vol] 4.00 10*6/uL 4.6-6.2 [facility] Blood hemoglobin measurement (mass/volume)Ordered By: Dr. Waite on 02-06-2022 Hemoglobin (Bld) [Mass/Vol] 11.5 g/dL 13.0-16.5 [facility] Blood lymphocytes/100 leukoc ytesOrdered By: Dr. Waite on 02-06-2022 Lymphocytes/100 WBC (Bld) 23.5 % 19-41 [facility] Blood monocytes/100 leukocyt esOrdered By: Dr. Waite on 02-06-2022 Monocytes/100 WBC (Bld) 6.9 % 0-10 [facility] Blood platelet mean volumeOr dered By: Dr. Waite on 02-06-2022 Platelet mean volume (Bld) [Entitic vol] 9.8 fL 6.2-12.0 [facility] Determination of erythrocyte mean corpuscular volume (MCV)Ordered By: Dr. Waite on 02-06-2022 MCV (RBC) [Entitic vol] 86.0 fL 80-94 [facility] Hematocrit Auto (Bld) [Volum e fraction]Ordered By: Dr. Waite on 02-06-2022 Hematocrit (Bld) [Volume fraction] 34.4 % 40-54 [facility] Laboratory - Chemistry and C hemistry - challengeOrdered By: Dr. Waite on 02-06-2022 CO2 [Moles/Vol] 29.0 mmol/L 21.0-32.0 [facility] Urea nitrogen/Creatinine [Mass ratio] 55.6 mg/mg 10-20 [facility] - Hematology and Cell countsOrdered By: Dr. Waite on 02-06-2022 Erythrocyte distribution width (RBC) [Entitic vol] 43.1 fL 35.1-43.9 [facility] Erythrocyte distribution width (RBC) [Ratio] 13.8 % 11.6-14.6 [facility] Immature granulocytes/100 WBC (Bld) 0.100 % 0.0-0.9 [facility] Comment on above: IG% - Immature Granu locytes (promyelocytes, myelocytes and metamyelocytes) > 1% indicates that a LEFT SHIFT is Present. MCH (RBC) [Entitic mass] 28.8 pg 27.0-32.0 [facility] Nucleated RBC/100 WBC (Bld) [Ratio] 0 % 0-5 [facility] MCHC Auto (RBC) [Mass/Vol]Or dered By: Dr. Waite on 02-06-2022 MCHC (RBC) [Mass/Vol] 33.4 g/dL 32-36 [facility] No Panel InformationOrdered By: Dr. Waite on 02-06-2022 Estimated GFR (MDRD) Amer 482 mL/min >60 [facility] Comment on above: GFR Calc Estimated GFR (MDRD) Non-Af Amer 399 mL/min >60 [facility] Comment on above: Non- GFR Calc 28.8 pg 27.0-32.0 [facility] 13.8 % 11.6-14.6 [facility] 43.1 fl 35.1-43.9 [facility] 0.100 % 0.0-0.9 [facility] 0 % 0-5 [facility] 399 mL/min >60 [facility] 482 mL/min >60 [facility] 55.6 RATIO 10-20 [facility] 29.0 mmol/L 21.0-32.0 [facility] Platelets bldOrdered By: Dr. Waite on 02-06-2022 Platelets (Bld) [#/Vol] 171 10*3/uL 150-450 [facility] Serum or plasma calcium jacinta urement (mass/volume)Ordered By: Dr. Waite on 02-06-2022 Calcium [Mass/Vol] 8.3 mg/dL 8.5-10.1 [facility] Serum or plasma creatinine m easurement (mass/volume)Ordered By: Dr. Waite on 02-06-2022 Creatinine [Mass/Vol] 0.27 mg/dL 0.70-1.30 [facility] Comment on above: The validity of the calculated GFR & GFRAA in patients over 70 years has not been determined. Clinical correlation is essential. Serum or plasma urea nitroge n measurement (mass/volume)Ordered By: Dr. Waite on 02-06-2022 Urea nitrogen [Mass/Vol] 15 mg/dL 7-18 [facility] Thin prep Papanicolaou smear with manual screeningOrdered By: Dr. Waite on 02-06-2022 Thin prep Papanicolaou smear with manual screening 6 5-15 [facility] Absolute lymphocyte countOrd ered By: Dr. Waite on 01-05-2022 Lymphocytes Auto (Unsp spec) [#/Vol] 2.32 10*3/uL 0.83-4.51 [facility] Basophil percentageOrdered B y: Dr. Waite on 01-05-2022 Basophil percentage 87 mg/dL 74-106 [facility] Basophil percentage 7.5 g/dL 6.4-8.2 [facility] Basophil percentage 0.20 mg/dL 0.20-1.00 [facility] Basophil percentage 139 mmol/L 136-145 [facility] Basophil percentage 4.2 mmol/L 3.5-5.1 [facility] Basophil percentage 102 mmol/L 98-107 [facility] Basophils (Bld) [#/Vol] 6.3 10*3/uL 4.4-11.0 [facility] Basophils (Bld) [#/Vol] 2.9 10*3/uL 2.0-7.7 [facility] Basophils/100 WBC (Bld) 0.5 % 0-1 [facility] Basophils/100 WBC (Bld) 45.8 % 47-70 [facility] Basophils/100 WBC (Bld) 8.0 % 0-5 [facility] Bilirubin [Mass/Vol] 0.20 mg/dL 0.20-1.00 [facility] Comment on above: For patients on eltr ombopag therapy, use of [employer] [place] TBIL is not recommended. Chloride [Moles/Vol] 102 mmol/L 98-107 [facility] Eosinophils/100 WBC (Bld) 8.0 % 0-5 [facility] Glucose [Mass/Vol] 87 mg/dL 74-106 [facility] Neutrophils (Bld) [#/Vol] 2.9 10*3/uL 2.0-7.7 [facility] Neutrophils/100 WBC (Bld) 45.8 % 47-70 [facility] Potassium [Moles/Vol] 4.2 mmol/L 3.5-5.1 [facility] Protein [Mass/Vol] 7.5 g/dL 6.4-8.2 [facility] Sodium [Moles/Vol] 139 mmol/L 136-145 [facility] WBC (Bld) [#/Vol] 6.3 10*3/uL 4.4-11.0 [facility] Blood erythrocytes count (nu mber/volume)Ordered By: Dr. Waite on 01-05-2022 RBC (Bld) [#/Vol] 4.05 10*6/uL 4.6-6.2 [facility] Blood hemoglobin measurement (mass/volume)Ordered By: Dr. Waite on 01-05-2022 Hemoglobin (Bld) [Mass/Vol] 11.6 g/dL 13.0-16.5 [facility] Blood lymphocytes/100 leukoc ytesOrdered By: Dr. Waite on 01-05-2022 Lymphocytes/100 WBC (Bld) 37.0 % 19-41 [facility] Blood monocytes/100 leukocyt esOrdered By: Dr. Waite on 01-05-2022 Monocytes/100 WBC (Bld) 8.5 % 0-10 [facility] Blood platelet mean volumeOr dered By: Dr. Waite on 01-05-2022 Platelet mean volume (Bld) [Entitic vol] 10.0 fL 6.2-12.0 [facility] Determination of erythrocyte mean corpuscular volume (MCV)Ordered By: Dr. Waite on 01-05-2022 MCV (RBC) [Entitic vol] 86.9 fL 80-94 [facility] Hematocrit Auto (Bld) [Volum e fraction]Ordered By: Dr. Waite on 01-05-2022 Hematocrit (Bld) [Volume fraction] 35.2 % 40-54 [facility] Laboratory - Chemistry and C hemistry - challengeOrdered By: Dr. Waite on 01-05-2022 ALP [Catalytic activity/Vol] 126 U/L 45-117 [facility] ALT [Catalytic activity/Vol] 20 U/L 16-61 [facility] CO2 [Moles/Vol] 31.0 mmol/L 21.0-32.0 [facility] Globulin (S) [Mass/Vol] 4.4 g/dL 2.2-4.2 [facility] Urea nitrogen/Creatinine [Mass ratio] 51.7 mg/mg 10-20 [facility] - Hematology and Cell countsOrdered By: Dr. Waite on 01-05-2022 Erythrocyte distribution width (RBC) [Entitic vol] 44.0 fL 35.1-43.9 [facility] Erythrocyte distribution width (RBC) [Ratio] 13.8 % 11.6-14.6 [facility] Immature granulocytes/100 WBC (Bld) 0.200 % 0.0-0.9 [facility] Comment on above: IG% - Immature Granu locytes (promyelocytes, myelocytes and metamyelocytes) > 1% indicates that a LEFT SHIFT is Present. MCH (RBC) [Entitic mass] 28.6 pg 27.0-32.0 [facility] Nucleated RBC/100 WBC (Bld) [Ratio] 0 % 0-5 [facility] MCHC Auto (RBC) [Mass/Vol]Or dered By: Dr. Waite on 01-05-2022 MCHC (RBC) [Mass/Vol] 33.0 g/dL 32-36 [facility] No Panel InformationOrdered By: Dr. Waite on 01-05-2022 Estimated GFR (MDRD) Amer 480 mL/min >60 [facility] Comment on above: GFR Calc Estimated GFR (MDRD) Non-Af Amer 397 mL/min >60 [facility] Comment on above: Non- GFR Calc 28.6 pg 27.0-32.0 [facility] 13.8 % 11.6-14.6 [facility] 44.0 fl 35.1-43.9 [facility] 0.200 % 0.0-0.9 [facility] 0 % 0-5 [facility] 397 mL/min >60 [facility] 480 mL/min >60 [facility] 51.7 RATIO 10-20 [facility] 4.4 g/dL 2.2-4.2 [facility] 126 U/L 45-117 [facility] 20 U/L 16-61 [facility] 31.0 mmol/L 21.0-32.0 [facility] Platelets bldOrdered By: Dr. Waite on 01-05-2022 Platelets (Bld) [#/Vol] 165 10*3/uL 150-450 [facility] Serum or plasma albumin jacinta urement (mass/volume)Ordered By: Dr. Waite on 01-05-2022 Albumin [Mass/Vol] 3.1 g/dL 3.2-5.0 [facility] Serum or plasma albumin/glob ulin mass ratioOrdered By: Dr. Waite on 01-05-2022 Albumin/Globulin [Mass ratio] 0.7 {ratio} 0.9-2.4 [facility] Serum or plasma calcium jacinta urement (mass/volume)Ordered By: Dr. Waite on 01-05-2022 Calcium [Mass/Vol] 8.6 mg/dL 8.5-10.1 [facility] Serum or plasma creatinine m easurement (mass/volume)Ordered By: Dr. Waite on 01-05-2022 Creatinine [Mass/Vol] 0.27 mg/dL 0.70-1.30 [facility] Comment on above: The validity of the calculated GFR & GFRAA in patients over 70 years has not been determined. Clinical correlation is essential. Serum or plasma urea nitroge n measurement (mass/volume)Ordered By: Dr. Waite on 01-05-2022 Urea nitrogen [Mass/Vol] 14 mg/dL 7-18 [facility] Thin prep Papanicolaou smear with manual screeningOrdered By: Dr. Waite on 01-05-2022 Thin prep Papanicolaou smear with manual screening 13 U/L 15-37 [facility] Thin prep Papanicolaou smear with manual screening 6 5-15 [facility] Absolute lymphocyte countOrd ered By: Dr. Waite on 12-08-2021 Lymphocytes Auto (Unsp spec) [#/Vol] 2.18 10*3/uL 0.83-4.51 [facility] Basophil percentageOrdered B y: Dr. Waite on 12-08-2021 Basophil percentage 88 mg/dL 74-106 [facility] Basophil percentage 143 mmol/L 136-145 [facility] Basophil percentage 4.2 mmol/L 3.5-5.1 [facility] Basophil percentage 105 mmol/L 98-107 [facility] Basophils (Bld) [#/Vol] 6.4 10*3/uL 4.4-11.0 [facility] Basophils (Bld) [#/Vol] 3.1 10*3/uL 2.0-7.7 [facility] Basophils/100 WBC (Bld) 0.3 % 0-1 [facility] Basophils/100 WBC (Bld) 48.5 % 47-70 [facility] Basophils/100 WBC (Bld) 8.9 % 0-5 [facility] Chloride [Moles/Vol] 105 mmol/L 98-107 [facility] Eosinophils/100 WBC (Bld) 8.9 % 0-5 [facility] Glucose [Mass/Vol] 88 mg/dL 74-106 [facility] Neutrophils (Bld) [#/Vol] 3.1 10*3/uL 2.0-7.7 [facility] Neutrophils/100 WBC (Bld) 48.5 % 47-70 [facility] Potassium [Moles/Vol] 4.2 mmol/L 3.5-5.1 [facility] Sodium [Moles/Vol] 143 mmol/L 136-145 [facility] WBC (Bld) [#/Vol] 6.4 10*3/uL 4.4-11.0 [facility] Blood erythrocytes count (nu mber/volume)Ordered By: Dr. Waite on 12-08-2021 RBC (Bld) [#/Vol] 3.54 10*6/uL 4.6-6.2 [facility] Blood hemoglobin measurement (mass/volume)Ordered By: Dr. Waite on 12-08-2021 Hemoglobin (Bld) [Mass/Vol] 10.0 g/dL 13.0-16.5 [facility] Blood lymphocytes/100 leukoc ytesOrdered By: Dr. Waite on 12-08-2021 Lymphocytes/100 WBC (Bld) 33.9 % 19-41 [facility] Blood monocytes/100 leukocyt esOrdered By: Dr. Waite on 12-08-2021 Monocytes/100 WBC (Bld) 7.9 % 0-10 [facility] Blood platelet mean volumeOr dered By: Dr. Waite on 12-08-2021 Platelet mean volume (Bld) [Entitic vol] 9.9 fL 6.2-12.0 [facility] Determination of erythrocyte mean corpuscular volume (MCV)Ordered By: Dr. Waite on 12-08-2021 MCV (RBC) [Entitic vol] 89.5 fL 80-94 [facility] Hematocrit Auto (Bld) [Volum e fraction]Ordered By: Dr. Waite on 12-08-2021 Hematocrit (Bld) [Volume fraction] 31.7 % 40-54 [facility] - Chemistry and C hemistry - challengeOrdered By: Dr. Waite on 12-08-2021 CO2 [Moles/Vol] 29.0 mmol/L 21.0-32.0 [facility] Urea nitrogen/Creatinine [Mass ratio] 48.8 mg/mg 10-20 [facility] - Hematology and Cell countsOrdered By: Dr. Waite on 12-08-2021 Erythrocyte distribution width (RBC) [Entitic vol] 44.7 fL 35.1-43.9 [facility] Erythrocyte distribution width (RBC) [Ratio] 13.6 % 11.6-14.6 [facility] Immature granulocytes/100 WBC (Bld) 0.500 % 0.0-0.9 [facility] Comment on above: IG% - Immature Granu locytes (promyelocytes, myelocytes and metamyelocytes) > 1% indicates that a LEFT SHIFT is Present. MCH (RBC) [Entitic mass] 28.2 pg 27.0-32.0 [facility] Nucleated RBC/100 WBC (Bld) [Ratio] 0 % 0-5 [facility] MCHC Auto (RBC) [Mass/Vol]Or dered By: Dr. Waite on 12-08-2021 MCHC (RBC) [Mass/Vol] 31.5 g/dL 32-36 [facility] No Panel InformationOrdered By: Dr. Waite on 12-08-2021 Estimated GFR (MDRD) Amer 450 mL/min >60 [facility] Comment on above: GFR Calc Estimated GFR (MDRD) Non-Af Amer 372 mL/min >60 [facility] Comment on above: Non- GFR Calc 28.2 pg 27.0-32.0 [facility] 13.6 % 11.6-14.6 [facility] 44.7 fl 35.1-43.9 [facility] 0.500 % 0.0-0.9 [facility] 0 % 0-5 [facility] 372 mL/min >60 [facility] 450 mL/min >60 [facility] 48.8 RATIO 10-20 [facility] 29.0 mmol/L 21.0-32.0 [facility] Platelets bldOrdered By: Dr. Waite on 12-08-2021 Platelets (Bld) [#/Vol] 239 10*3/uL 150-450 [facility] Serum or plasma calcium jacinta urement (mass/volume)Ordered By: Dr. Waite on 12-08-2021 Calcium [Mass/Vol] 8.1 mg/dL 8.5-10.1 [facility] Serum or plasma creatinine m easurement (mass/volume)Ordered By: Dr. Waite on 12-08-2021 Creatinine [Mass/Vol] 0.29 mg/dL 0.70-1.30 [facility] Comment on above: The validity of the calculated GFR & GFRAA in patients over 70 years has not been determined. Clinical correlation is essential. Serum or plasma urea nitroge n measurement (mass/volume)Ordered By: Dr. Waite on 12-08-2021 Urea nitrogen [Mass/Vol] 14 mg/dL 7-18 [facility] Thin prep Papanicolaou smear with manual screeningOrdered By: Dr. Waite on 12-08-2021 Thin prep Papanicolaou smear with manual screening 9 5-15 [facility] Absolute lymphocyte countOrd ered By: Dr. Dillard on 12-05-2021 Lymphocytes Auto (Unsp spec) [#/Vol] 1.83 10*3/uL 0.83-4.51 [facility] Basophil percentageOrdered B y: Dr. Dillard on 12-05-2021 Basophil percentage 105 mg/dL 74-106 [facility] Basophil percentage 7.8 g/dL 6.4-8.2 [facility] Basophil percentage 0.20 mg/dL 0.20-1.00 [facility] Basophil percentage 140 mmol/L 136-145 [facility] Basophil percentage 3.8 mmol/L 3.5-5.1 [facility] Basophil percentage 107 mmol/L 98-107 [facility] Basophils (Bld) [#/Vol] 7.0 10*3/uL 4.4-11.0 [facility] Basophils (Bld) [#/Vol] 3.8 10*3/uL 2.0-7.7 [facility] Basophils/100 WBC (Bld) 0.3 % 0-1 [facility] Basophils/100 WBC (Bld) 54.8 % 47-70 [facility] Basophils/100 WBC (Bld) 9.3 % 0-5 [facility] Bilirubin [Mass/Vol] 0.20 mg/dL 0.20-1.00 [facility] Comment on above: For patients on eltr ombopag therapy, use of [employer] [place] TBIL is not recommended. Chloride [Moles/Vol] 107 mmol/L 98-107 [facility] Eosinophils/100 WBC (Bld) 9.3 % 0-5 [facility] Glucose [Mass/Vol] 105 mg/dL 74-106 [facility] Comment on above: Fasting Glucose resu lt from 100 to 125 mg/dL suggests IMPAIRED HOMEOSTASIS per A.D.A. criteria. Neutrophils (Bld) [#/Vol] 3.8 10*3/uL 2.0-7.7 [facility] Neutrophils/100 WBC (Bld) 54.8 % 47-70 [facility] Potassium [Moles/Vol] 3.8 mmol/L 3.5-5.1 [facility] Protein [Mass/Vol] 7.8 g/dL 6.4-8.2 [facility] Sodium [Moles/Vol] 140 mmol/L 136-145 [facility] WBC (Bld) [#/Vol] 7.0 10*3/uL 4.4-11.0 [facility] Blood erythrocytes count (nu mber/volume)Ordered By: Dr. Dillard on 12-05-2021 RBC (Bld) [#/Vol] 3.84 10*6/uL 4.6-6.2 [facility] Blood hemoglobin measurement (mass/volume)Ordered By: Dr. Dillard on 12-05-2021 Hemoglobin (Bld) [Mass/Vol] 10.7 g/dL 13.0-16.5 [facility] Blood lymphocytes/100 leukoc ytesOrdered By: Dr. Dillard on 12-05-2021 Lymphocytes/100 WBC (Bld) 26.3 % 19-41 [facility] Blood monocytes/100 leukocyt esOrdered By: Dr. Dillard on 12-05-2021 Monocytes/100 WBC (Bld) 8.9 % 0-10 [facility] Blood platelet mean volumeOr dered By: Dr. Dillard on 12-05-2021 Platelet mean volume (Bld) [Entitic vol] 10.0 fL 6.2-12.0 [facility] Determination of erythrocyte mean corpuscular volume (MCV)Ordered By: Dr. Dillard on 12-05-2021 MCV (RBC) [Entitic vol] 89.6 fL 80-94 [facility] Hematocrit Auto (Bld) [Volum e fraction]Ordered By: Dr. Dillard on 12-05-2021 Hematocrit (Bld) [Volume fraction] 34.4 % 40-54 [facility] [facility] - Chemistry and C hemistry - challengeOrdered By: Dr. Dillard on 12-05-2021 ALP [Catalytic activity/Vol] 134 U/L 45-117 [facility] ALT [Catalytic activity/Vol] 24 U/L 16-61 [facility] CO2 [Moles/Vol] 27.0 mmol/L 21.0-32.0 [facility] Globulin (S) [Mass/Vol] 5.0 g/dL 2.2-4.2 [facility] Urea nitrogen/Creatinine [Mass ratio] 47.1 mg/mg 10-20 [facility] Laboratory - Hematology and Cell countsOrdered By: Dr. Dillard on 12-05-2021 Erythrocyte distribution width (RBC) [Entitic vol] 45.1 fL 35.1-43.9 [facility] Erythrocyte distribution width (RBC) [Ratio] 13.8 % 11.6-14.6 [facility] Immature granulocytes/100 WBC (Bld) 0.400 % 0.0-0.9 [facility] Comment on above: IG% - Immature Granu locytes (promyelocytes, myelocytes and metamyelocytes) > 1% indicates that a LEFT SHIFT is Present. MCH (RBC) [Entitic mass] 27.9 pg 27.0-32.0 [facility] Nucleated RBC/100 WBC (Bld) [Ratio] 0 % 0-5 [facility] MCHC Auto (RBC) [Mass/Vol]Or dered By: Dr. Dillard on 12-05-2021 MCHC (RBC) [Mass/Vol] 31.1 g/dL 32-36 [facility] Comment on above: Delta: 32.8 on 12/04 No Panel InformationOrdered By: Dr. Dillard on 12-05-2021 Estimated Creatinine Clearance Calc 269.76 ml/min [facility] Estimated GFR (MDRD) Amer 516 mL/min >60 [facility] Comment on above: GFR Calc Estimated GFR (MDRD) Non-Af Amer 426 mL/min >60 [facility] Comment on above: Non- GFR Calc 27.9 pg 27.0-32.0 [facility] 13.8 % 11.6-14.6 [facility] 45.1 fl 35.1-43.9 [facility] 0.400 % 0.0-0.9 [facility] 0 % 0-5 [facility] 426 mL/min >60 [facility] 516 mL/min >60 [facility] 269.76 ml/min [facility] 47.1 RATIO 10-20 [facility] 5.0 g/dL 2.2-4.2 [facility] 134 U/L 45-117 [facility] 24 U/L 16-61 [facility] 27.0 mmol/L 21.0-32.0 [facility] Platelets bldOrdered By: Dr. Dillard on 12-05-2021 Platelets (Bld) [#/Vol] 181 10*3/uL 150-450 [facility] Serum or plasma albumin jacinta urement (mass/volume)Ordered By: Dr. Dillard on 12-05-2021 Albumin [Mass/Vol] 2.8 g/dL 3.2-5.0 [facility] Serum or plasma albumin/glob ulin mass ratioOrdered By: Dr. Dillard on 12-05-2021 Albumin/Globulin [Mass ratio] 0.6 {ratio} 0.9-2.4 [facility] Serum or plasma calcium jacinta urement (mass/volume)Ordered By: Dr. Dillard on 12-05-2021 Calcium [Mass/Vol] 8.7 mg/dL 8.5-10.1 [facility] Serum or plasma creatinine m easurement (mass/volume)Ordered By: Dr. Dillard on 12-05-2021 Creatinine [Mass/Vol] 0.26 mg/dL 0.70-1.30 [facility] Comment on above: The validity of the calculated GFR & GFRAA in patients over 70 years has not been determined. Clinical correlation is essential. Serum or plasma urea nitroge n measurement (mass/volume)Ordered By: Dr. Dillard on 12-05-2021 Urea nitrogen [Mass/Vol] 12 mg/dL 7-18 [facility] Thin prep Papanicolaou smear with manual screeningOrdered By: Dr. Dillard on 12-05-2021 Thin prep Papanicolaou smear with manual screening 13 U/L 15-37 [facility] Thin prep Papanicolaou smear with manual screening 6 5-15 [facility] Bacteria identified Respirat ory culture Nom (Unsp spec)Ordered By: Dominic Méndez on 12-02-2021 Respiratory Culture Pseudomonas aeroginosa [facility] Microbial respiratory culture [facility] Laboratory - Chemistry and C hemistry - challengeOrdered By: Dr. Dillard on 12-02-2021 Magnesium [Mass/Vol] 2.2 mg/dL 1.6-2.6 [facility] No Panel InformationOrdered By: Dr. Dillard on 12-02-2021 2.2 mg/dL 1.6-2.6 [facility] Assessment of wrist artery p atency prior to arterial punctureOrdered By: Dr. Dillard on 12-01-2021 Arterial patency Wrist artery --pre arterial puncture Negative [facility] Base excessOrdered By: Dr. Roxi britton on 12-01-2021 Base excess Calc (BldV) [Moles/Vol] -3 mmol/L -2-2 [facility] Basophil percentageOrdered B y: Dr. Dillard on 12-01-2021 Basophil percentage 1.2 mmol/L 0.4-2.0 [facility] Lactate [Moles/Vol] 1.2 mmol/L 0.4-2.0 [facility] Basophil percentage 21.5 mmol/L 22-26 [facility] Basophils/100 WBC (Bld) 94 % 95-99 [facility] CO2 (BldA) [Partial pressure ]Ordered By: Dr. Dillard on 12-01-2021 CO2 (Bld) [Partial pressure] 31.2 mm[Hg] 35-45 [facility] Gram stain for investigation of transfusion reactionOrdered By: Dominic Méndez on 12-01-2021 Microscopic observation Gram stain Nom (Unsp spec) [facility] Laboratory - Microbiology an d Antimicrobial susceptibilityOrdered By: Dr. Moreira on 12-01-2021 Respiratory pathogens DNA and RNA 12b panel YAYO+probe (Unsp spec) [facility] No Panel InformationOrdered By: Dr. Dillard on 12-01-2021 Blood Gas Liter Flow 3.0 /min [facility] Blood Gas Sample Site R [facility] Blood Gas Specimen Type ART [facility] Blood Gas Total CO2 22 mmol/L [facility] Blood Gas Vent Mode home vent [facility] Oxygen Delivery Device Adult Vent [facility] R [facility] home vent [facility] Adult Vent [facility] 3.0 /min [facility] 22 mmol/L [facility] Oxygen (BldA) [Partial press ure]Ordered By: Dr. Dillard on 12-01-2021 Oxygen (Bld) [Partial pressure] 65 mmHG 75-100 [facility] pH measurementOrdered By: Dr Roxanne Dillard on 12-01-2021 pH (Unsp spec) 7.45 [pH] 7.35-7.45 [facility] Absolute lymphocyte counton 11-30-2021 Lymphocytes Auto (Unsp spec) [#/Vol] 1.55 10*3/uL 0.83-4.51 [facility] Work Phone: Basophil percentageon 2021 Basophils/100 WBC (Bld) 0.3 % 0-1 [facility] Work Phone: [phone] Chloride [Moles/Vol] 104 mmol/L 98-107 [facility] Work Phone: [phone] Eosinophils/100 WBC (Bld) 5.1 % 0-5 [facility] Work Phone: [phone] Glucose [Mass/Vol] 84 mg/dL 74-106 [facility] Work Phone: [phone] Neutrophils (Bld) [#/Vol] 3.6 10*3/uL 2.0-7.7 [facility] Work Phone: [phone] Neutrophils/100 WBC (Bld) 58.6 % 47-70 [facility] Work Phone: [phone] Potassium [Moles/Vol] 3.7 mmol/L 3.5-5.1 [facility] Work Phone: [phone] Sodium [Moles/Vol] 140 mmol/L 136-145 [facility] Work [facility]: [phone] WBC (Bld) [#/Vol] 6.1 10*3/uL 4.4-11.0 [facility] Work Phone: Blood erythrocytes count (nu mber/volume)on 11-30-2021 RBC (Bld) [#/Vol] 4.31 10*6/uL 4.6-6.2 [facility] Work Phone: Blood hemoglobin measurement (mass/volume)on 11-30-2021 Hemoglobin (Bld) [Mass/Vol] 12.0 g/dL 13.0-16.5 [facility] Work Phone: [phone] Blood lymphocytes/100 leukoc yteson 11-30-2021 Lymphocytes/100 WBC (Bld) 25.6 % 19-41 [facility] Work Phone: [phone] Blood monocytes/100 leukocyt eson 11-30-2021 Monocytes/100 WBC (Bld) 10.2 % 0-10 [facility] Work Phone: Blood platelet mean volumeon 11-30-2021 Platelet mean volume (Bld) [Entitic vol] 9.8 fL 6.2-12.0 [facility] Work Phone: Determination of erythrocyte mean corpuscular volume (MCV)on 11-30-2021 MCV (RBC) [Entitic vol] 86.8 fL 80-94 [facility] Work Phone: Hematocrit Auto (Bld) [Volum e fraction]on 11-30-2021 Hematocrit (Bld) [Volume fraction] 37.4 % 40-54 [facility] Work Phone: Laboratory - Chemistry and C hemistry - challengeon 11-30-2021 CO2 [Moles/Vol] 28.0 mmol/L 21.0-32.0 [facility] Work Phone: Urea nitrogen/Creatinine [Mass ratio] 35.0 mg/mg 10-20 [facility] Work Phone: Laboratory - Hematology and Cell countson 11-30-2021 Erythrocyte distribution width (RBC) [Entitic vol] 41.7 fL 35.1-43.9 [facility] Work Phone: Erythrocyte distribution width (RBC) [Ratio] 13.2 % 11.6-14.6 [facility] Work Phone: Immature granulocytes/100 WBC (Bld) 0.200 % 0.0-0.9 [facility] Work Phone: Comment on above: IG% - Immature Granu locytes (promyelocytes, myelocytes and metamyelocytes) > 1% indicates that a LEFT SHIFT is Present. MCH (RBC) [Entitic mass] 27.8 pg 27.0-32.0 [facility] Work Phone: Nucleated RBC/100 WBC (Bld) [Ratio] 0 % 0-5 [facility] Work Phone: MCHC Auto (RBC) [Mass/Vol]on 11-30-2021 MCHC (RBC) [Mass/Vol] 32.1 g/dL 32-36 [facility] Work Phone: No Panel Informationon 11-30 Estimated Creatinine Clearance Calc 357.48 ml/min [facility] Work Phone: Estimated GFR (MDRD) Amer 406 mL/min >60 [facility] Work Phone: Comment on above: GFR Calc Estimated GFR (MDRD) Non-Af Amer 335 mL/min >60 [facility] Work Phone: Comment on above: Non- GFR Calc Platelets bldon 11-30-2021 Platelets (Bld) [#/Vol] 166 10*3/uL 150-450 [facility] Work Phone: Serum or plasma calcium jacinta urement (mass/volume)on 11-30-2021 Calcium [Mass/Vol] 8.7 mg/dL 8.5-10.1 [facility] Work Phone: Serum or plasma creatinine m easurement (mass/volume)on 11-30-2021 Creatinine [Mass/Vol] 0.31 mg/dL 0.70-1.30 [facility] Work Phone: Comment on above: The validity of the calculated GFR & GFRAA in patients over 70 years has not been determined. Clinical correlation is essential. Serum or plasma urea nitroge n measurement (mass/volume)on 11-30-2021 Urea nitrogen [Mass/Vol] 11 mg/dL 7-18 [facility] Work Phone: Thin prep Papanicolaou smear with manual screeningon 11-30-2021 Thin prep Papanicolaou smear with manual screening 8 5-15 [facility] Work Phone: Absolute lymphocyte counton 11-03-2021 Lymphocytes Auto (Unsp spec) [#/Vol] 2.54 10*3/uL 0.83-4.51 [facility] Work Phone: Basophil percentageon 2021 Basophils/100 WBC (Bld) 0.5 % 0-1 [facility] Work Phone: Chloride [Moles/Vol] 102 mmol/L 98-107 [facility] Work Phone: [phone] Eosinophils/100 WBC (Bld) 4.1 % 0-5 [facility] Work Phone: [phone] Glucose [Mass/Vol] 98 mg/dL 74-106 [facility] Work Phone: Neutrophils (Bld) [#/Vol] 3.2 10*3/uL 2.0-7.7 [facility] Work Phone: [phone] Neutrophils/100 WBC (Bld) 47.6 % 47-70 [facility] Work Phone: [phone] Potassium [Moles/Vol] 3.6 mmol/L 3.5-5.1 [facility] Work Phone: [phone] Sodium [Moles/Vol] 138 mmol/L 136-145 [facility] Work Phone: WBC (Bld) [#/Vol] 6.6 10*3/uL 4.4-11.0 [facility] Work Phone: Blood erythrocytes count (nu mber/volume)on 11-03-2021 RBC (Bld) [#/Vol] 4.09 10*6/uL 4.6-6.2 [facility] Work Phone: Blood hemoglobin measurement (mass/volume)on 11-03-2021 Hemoglobin (Bld) [Mass/Vol] 11.9 g/dL 13.0-16.5 [facility] Work Phone: [phone] Blood lymphocytes/100 leukoc yteson 11-03-2021 Lymphocytes/100 WBC (Bld) 38.4 % 19-41 [facility] Work Phone: [phone] Blood monocytes/100 leukocyt eson 11-03-2021 Monocytes/100 WBC (Bld) 9.2 % 0-10 [facility] Work Phone: Blood platelet mean volumeon 11-03-2021 Platelet mean volume (Bld) [Entitic vol] 10.1 fL 6.2-12.0 [facility] Work Phone: Determination of erythrocyte mean corpuscular volume (MCV)on 11-03-2021 MCV (RBC) [Entitic vol] 88.3 fL 80-94 [facility] Work Phone: Hematocrit Auto (Bld) [Volum e fraction]on 11-03-2021 Hematocrit (Bld) [Volume fraction] 36.1 % 40-54 [facility] Work Phone: Laboratory - Chemistry and C hemistry - challengeon 11-03-2021 CO2 [Moles/Vol] 27.0 mmol/L 21.0-32.0 [facility] Work Phone: Urea nitrogen/Creatinine [Mass ratio] 47.9 mg/mg 10-20 [facility] Work Phone: Laboratory - Hematology and Cell countson 11-03-2021 Erythrocyte distribution width (RBC) [Entitic vol] 44.0 fL 35.1-43.9 [facility] Work Phone: Erythrocyte distribution width (RBC) [Ratio] 13.5 % 11.6-14.6 [facility] Work Phone: Immature granulocytes/100 WBC (Bld) 0.200 % 0.0-0.9 [facility] Work Phone: Comment on above: IG% - Immature Granu locytes (promyelocytes, myelocytes and metamyelocytes) > 1% indicates that a LEFT SHIFT is Present. MCH (RBC) [Entitic mass] 29.1 pg 27.0-32.0 [facility] Work Phone: Nucleated RBC/100 WBC (Bld) [Ratio] 0 % 0-5 [facility] Work Phone: MCHC Auto (RBC) [Mass/Vol]on 11-03-2021 MCHC (RBC) [Mass/Vol] 33.0 g/dL 32-36 [facility] Work Phone: No Panel Informationon 11-03 Estimated GFR (MDRD) Amer 352 mL/min >60 [facility] Work Phone: Comment on above: GFR Calc Estimated GFR (MDRD) Non-Af Amer 291 mL/min >60 [facility] Work Phone: Comment on above: Non- GFR Calc Platelets bldon 11-03-2021 Platelets (Bld) [#/Vol] 215 10*3/uL 150-450 [facility] Work Phone: Serum or plasma calcium jacinta urement (mass/volume)on 11-03-2021 Calcium [Mass/Vol] 8.9 mg/dL 8.5-10.1 [facility] Work Phone: Serum or plasma creatinine m easurement (mass/volume)on 11-03-2021 Creatinine [Mass/Vol] 0.36 mg/dL 0.70-1.30 [facility] Work Phone: Comment on above: The validity of the calculated GFR & GFRAA in patients over 70 years has not been determined. Clinical correlation is essential. Serum or plasma urea nitroge n measurement (mass/volume)on 11-03-2021 Urea nitrogen [Mass/Vol] 17 mg/dL 7-18 [facility] Work Phone: Thin prep Papanicolaou smear with manual screeningon 11-03-2021 Thin prep Papanicolaou smear with manual screening 9 5-15 [facility] Work Phone: Absolute lymphocyte counton 09-10-2021 Lymphocytes Auto (Unsp spec) [#/Vol] 2.63 10*3/uL 0.83-4.51 [facility] Work Phone: Basophil percentageon 2021 Basophils/100 WBC (Bld) 0.3 % 0-1 [facility] Work Phone: Chloride [Moles/Vol] 102 mmol/L 98-107 [facility] Work Phone: Eosinophils/100 WBC (Bld) 3.9 % 0-5 [facility] Work Phone: Glucose [Mass/Vol] 80 mg/dL 74-106 [facility] Work Phone: Neutrophils (Bld) [#/Vol] 3.5 10*3/uL 2.0-7.7 [facility] Work Phone: Neutrophils/100 WBC (Bld) 48.5 % 47-70 [facility] Work Phone: Potassium [Moles/Vol] 4.1 mmol/L 3.5-5.1 [facility] Work Phone: Sodium [Moles/Vol] 138 mmol/L 136-145 [facility] Work Phone: WBC (Bld) [#/Vol] 7.1 10*3/uL 4.4-11.0 [facility] Work Phone: Blood erythrocytes count (nu mber/volume)on 09-10-2021 RBC (Bld) [#/Vol] 4.00 10*6/uL 4.6-6.2 [facility] Work Phone: Blood hemoglobin measurement (mass/volume)on 09-10-2021 Hemoglobin (Bld) [Mass/Vol] 11.3 g/dL 13.0-16.5 [facility] Work Phone: Blood lymphocytes/100 leukoc yteson 09-10-2021 Lymphocytes/100 WBC (Bld) 36.9 % 19-41 [facility] Work Phone: Blood monocytes/100 leukocyt eson 09-10-2021 Monocytes/100 WBC (Bld) 10.3 % 0-10 [facility] Work Phone: Blood platelet mean volumeon 09-10-2021 Platelet mean volume (Bld) [Entitic vol] 10.7 fL 6.2-12.0 [facility] Work Phone: Determination of erythrocyte mean corpuscular volume (MCV)on 09-10-2021 MCV (RBC) [Entitic vol] 89.5 fL 80-94 [facility] Work Phone: Hematocrit Auto (Bld) [Volum e fraction]on 09-10-2021 Hematocrit (Bld) [Volume fraction] 35.8 % 40-54 [facility] Work Phone: Iron measurement (mass/mass) on 09-10-2021 Iron (Unsp spec) [Mass/Mass] 59 ug/dL 65-175 [facility] Work Phone: Laboratory - Chemistry and C hemistry - challengeon 09-10-2021 CO2 [Moles/Vol] 30.0 mmol/L 21.0-32.0 [facility] Work Phone: Urea nitrogen/Creatinine [Mass ratio] 71.9 mg/mg 10-20 [facility] Work Phone: Laboratory - Hematology and Cell countson 09-10-2021 Erythrocyte distribution width (RBC) [Entitic vol] 47.7 fL 35.1-43.9 [facility] Work Phone: Erythrocyte distribution width (RBC) [Ratio] 14.6 % 11.6-14.6 [facility] Work Phone: Immature granulocytes/100 WBC (Bld) 0.100 % 0.0-0.9 [facility] Work Phone: Comment on above: IG% - Immature Granu locytes (promyelocytes, myelocytes and metamyelocytes) > 1% indicates that a LEFT SHIFT is Present. MCH (RBC) [Entitic mass] 28.3 pg 27.0-32.0 [facility] Work Phone: Nucleated RBC/100 WBC (Bld) [Ratio] 0 % 0-5 [facility] Work Phone: MCHC Auto (RBC) [Mass/Vol]on 09-10-2021 MCHC (RBC) [Mass/Vol] 31.6 g/dL 32-36 [facility] Work Phone: No Panel Informationon 09-10 Estimated GFR (MDRD) Amer 467 mL/min >60 [facility] Work Phone: Comment on above: GFR Calc Estimated GFR (MDRD) Non-Af Amer 386 mL/min >60 [facility] Work Phone: Comment on above: Non- GFR Calc Platelets bldon 09-10-2021 Platelets (Bld) [#/Vol] 177 10*3/uL 150-450 [facility] Work Phone: Serum or plasma calcium jacinta urement (mass/volume)on 09-10-2021 Calcium [Mass/Vol] 9.0 mg/dL 8.5-10.1 [facility] Work Phone: Serum or plasma creatinine m easurement (mass/volume)on 09-10-2021 Creatinine [Mass/Vol] 0.28 mg/dL 0.70-1.30 [facility] Work Phone: Comment on above: The validity of the calculated GFR & GFRAA in patients over 70 years has not been determined. Clinical correlation is essential. Serum or plasma urea nitroge n measurement (mass/volume)on 09-10-2021 Urea nitrogen [Mass/Vol] 20 mg/dL 7-18 [facility] Work Phone: Thin prep Papanicolaou smear with manual screeningon 09-10-2021 Thin prep Papanicolaou smear with manual screening 6 5-15 [facility] Work Phone: Absolute lymphocyte counton 08-12-2021 Lymphocytes Auto (Unsp spec) [#/Vol] 1.84 10*3/uL 0.83-4.51 [facility] Work Phone: Basophil percentageon 2021 Basophils/100 WBC (Bld) 0.2 % 0-1 [facility] Work Phone: Chloride [Moles/Vol] 103 mmol/L 98-107 [facility] Work Phone: Eosinophils/100 WBC (Bld) 4.6 % 0-5 [facility] Work Phone: Glucose [Mass/Vol] 90 mg/dL 74-106 [facility] Work Phone: Neutrophils (Bld) [#/Vol] 2.4 10*3/uL 2.0-7.7 [facility] Work Phone: Neutrophils/100 WBC (Bld) 48.8 % 47-70 [facility] Work Phone: Potassium [Moles/Vol] 3.8 mmol/L 3.5-5.1 [facility] Work Phone: Sodium [Moles/Vol] 139 mmol/L 136-145 [facility] Work Phone: WBC (Bld) [#/Vol] 5.0 10*3/uL 4.4-11.0 [facility] Work Phone: Blood erythrocytes count (nu mber/volume)on 08-12-2021 RBC (Bld) [#/Vol] 4.09 10*6/uL 4.6-6.2 [facility] Work Phone: Blood hemoglobin measurement (mass/volume)on 08-12-2021 Hemoglobin (Bld) [Mass/Vol] 11.5 g/dL 13.0-16.5 [facility] Work Phone: Blood lymphocytes/100 leukoc yteson 08-12-2021 Lymphocytes/100 WBC (Bld) 36.8 % 19-41 [facility] Work Phone: Blood monocytes/100 leukocyt eson 08-12-2021 Monocytes/100 WBC (Bld) 9.4 % 0-10 [facility] Work Phone: Blood platelet mean volumeon 08-12-2021 Platelet mean volume (Bld) [Entitic vol] 11.0 fL 6.2-12.0 [facility] Work Phone: Determination of erythrocyte mean corpuscular volume (MCV)on 08-12-2021 MCV (RBC) [Entitic vol] 87.0 fL 80-94 [facility] Work Phone: Hematocrit Auto (Bld) [Volum e fraction]on 08-12-2021 Hematocrit (Bld) [Volume fraction] 35.6 % 40-54 [facility] Work Phone: Laboratory - Chemistry and C hemistry - challengeon 08-12-2021 CO2 [Moles/Vol] 29.0 mmol/L 21.0-32.0 [facility] Work Phone: Urea nitrogen/Creatinine [Mass ratio] 50.8 mg/mg 10-20 [facility] Work Phone: Laboratory - Hematology and Cell countson 08-12-2021 Erythrocyte distribution width (RBC) [Entitic vol] 44.2 fL 35.1-43.9 [facility] Work Phone: Erythrocyte distribution width (RBC) [Ratio] 14.1 % 11.6-14.6 [facility] Work Phone: Immature granulocytes/100 WBC (Bld) 0.200 % 0.0-0.9 [facility] Work Phone: Comment on above: IG% - Immature Granu locytes (promyelocytes, myelocytes and metamyelocytes) > 1% indicates that a LEFT SHIFT is Present. MCH (RBC) [Entitic mass] 28.1 pg 27.0-32.0 [facility] Work Phone: Nucleated RBC/100 WBC (Bld) [Ratio] 0 % 0-5 [facility] Work Phone: MCHC Auto (RBC) [Mass/Vol]on 08-12-2021 MCHC (RBC) [Mass/Vol] 32.3 g/dL 32-36 [facility] Work Phone: No Panel Informationon 08-12 Estimated GFR (MDRD) Amer 405 mL/min >60 [facility] Work Phone: Comment on above: GFR Calc Estimated GFR (MDRD) Non-Af Amer 334 mL/min >60 [facility] Work Phone: Comment on above: Non- GFR Calc Platelets bldon 08-12-2021 Platelets (Bld) [#/Vol] 151 10*3/uL 150-450 [facility] Work Phone: Serum or plasma calcium jacinta urement (mass/volume)on 08-12-2021 Calcium [Mass/Vol] 9.0 mg/dL 8.5-10.1 [facility] Work Phone: Serum or plasma creatinine m easurement (mass/volume)on 08-12-2021 Creatinine [Mass/Vol] 0.32 mg/dL 0.70-1.30 [facility] Work Phone: Comment on above: The validity of the calculated GFR & GFRAA in patients over 70 years has not been determined. Clinical correlation is essential. Serum or plasma urea nitroge n measurement (mass/volume)on 08-12-2021 Urea nitrogen [Mass/Vol] 16 mg/dL 7-18 [facility] Work Phone: Thin prep Papanicolaou smear with manual screeningon 08-12-2021 Thin prep Papanicolaou smear with manual screening 7 5-15 [facility] Work Phone: Absolute lymphocyte counton 07-11-2021 Lymphocytes Auto (Unsp spec) [#/Vol] 2.56 10*3/uL 0.83-4.51 [facility] Work Phone: Basophil percentageon 2021 Basophils/100 WBC (Bld) 0.4 % 0-1 [facility] Work Phone: Chloride [Moles/Vol] 105 mmol/L 98-107 [facility] Work Phone: Eosinophils/100 WBC (Bld) 5.9 % 0-5 [facility] Work Phone: Glucose [Mass/Vol] 85 mg/dL 74-106 [facility] Work Phone: Neutrophils (Bld) [#/Vol] 2.1 10*3/uL 2.0-7.7 [facility] Work Phone: Neutrophils/100 WBC (Bld) 38.0 % 47-70 [facility] Work Phone: Potassium [Moles/Vol] 3.7 mmol/L 3.5-5.1 [facility] Work Phone: Sodium [Moles/Vol] 139 mmol/L 136-145 [facility] Work Phone: WBC (Bld) [#/Vol] 5.6 10*3/uL 4.4-11.0 [facility] Work Phone: Blood erythrocytes count (nu mber/volume)on 07-11-2021 RBC (Bld) [#/Vol] 3.83 10*6/uL 4.6-6.2 [facility] Work Phone: Blood hemoglobin measurement (mass/volume)on 07-11-2021 Hemoglobin (Bld) [Mass/Vol] 10.8 g/dL 13.0-16.5 [facility] Work Phone: Blood lymphocytes/100 leukoc yteson 07-11-2021 Lymphocytes/100 WBC (Bld) 46.0 % 19-41 [facility] Work Phone: Blood monocytes/100 leukocyt eson 07-11-2021 Monocytes/100 WBC (Bld) 9.7 % 0-10 [facility] Work Phone: Blood platelet mean volumeon 07-11-2021 Platelet mean volume (Bld) [Entitic vol] 10.9 fL 6.2-12.0 [facility] Work Phone: Determination of erythrocyte mean corpuscular volume (MCV)on 07-11-2021 MCV (RBC) [Entitic vol] 88.5 fL 80-94 [facility] [facility] Work Phone: Hematocrit Auto (Bld) [Volum e fraction]on 07-11-2021 Hematocrit (Bld) [Volume fraction] 33.9 % 40-54 [facility] Work Phone: Laboratory - Chemistry and C hemistry - challengeon 07-11-2021 CO2 [Moles/Vol] 28.0 mmol/L 21.0-32.0 [facility] Work Phone: Urea nitrogen/Creatinine [Mass ratio] 79.4 mg/mg 10-20 [facility] Work Phone: Laboratory - Hematology and Cell countson 07-11-2021 Erythrocyte distribution width (RBC) [Entitic vol] 44.5 fL 35.1-43.9 [facility] Work Phone: Erythrocyte distribution width (RBC) [Ratio] 13.7 % 11.6-14.6 [facility] Work Phone: Immature granulocytes/100 WBC (Bld) 0.000 % 0.0-0.9 [facility] Work Phone: Comment on above: IG% - Immature Granu locytes (promyelocytes, myelocytes and metamyelocytes) > 1% indicates that a LEFT SHIFT is Present. MCH (RBC) [Entitic mass] 28.2 pg 27.0-32.0 [facility] Work Phone: Nucleated RBC/100 WBC (Bld) [Ratio] 0 % 0-5 [facility] Work Phone: MCHC Auto (RBC) [Mass/Vol]on 07-11-2021 MCHC (RBC) [Mass/Vol] 31.9 g/dL 32-36 [facility] Work Phone: No Panel Informationon 07-11 Estimated GFR (MDRD) Amer 470 mL/min >60 [facility] Work Phone: Comment on above: GFR Calc Estimated GFR (MDRD) Non-Af Amer 388 mL/min >60 [facility] Work Phone: Comment on above: Non- GFR Calc Platelets bldon 07-11-2021 Platelets (Bld) [#/Vol] 163 10*3/uL 150-450 [facility] Work Phone: Serum or plasma calcium jacinta urement (mass/volume)on 07-11-2021 Calcium [Mass/Vol] 8.3 mg/dL 8.5-10.1 [facility] Work Phone: Serum or plasma creatinine m easurement (mass/volume)on 07-11-2021 Creatinine [Mass/Vol] 0.28 mg/dL 0.70-1.30 [facility] Work Phone: Comment on above: The validity of the calculated GFR & GFRAA in patients over 70 years has not been determined. Clinical correlation is essential. Serum or plasma urea nitroge n measurement (mass/volume)on 07-11-2021 Urea nitrogen [Mass/Vol] 22 mg/dL 7-18 [facility] Work Phone: Thin prep Papanicolaou smear with manual screeningon 07-11-2021 Thin prep Papanicolaou smear with manual screening 6 5-15 [facility] Work Phone: Absolute lymphocyte counton 06-11-2021 Lymphocytes Auto (Unsp spec) [#/Vol] 2.71 10*3/uL 0.83-4.51 [facility] Work Phone: Basophil percentageon 2021 Basophils/100 WBC (Bld) 0.5 % 0-1 [facility] Work Phone: Chloride [Moles/Vol] 103 mmol/L 98-107 [facility] Work Phone: Eosinophils/100 WBC (Bld) 5.6 % 0-5 [facility] Work Phone: Glucose [Mass/Vol] 82 mg/dL 74-106 [facility] Work Phone: Neutrophils (Bld) [#/Vol] 2.6 10*3/uL 2.0-7.7 [facility] Work Phone: Neutrophils/100 WBC (Bld) 41.2 % 47-70 [facility] Work Phone: Potassium [Moles/Vol] 4.1 mmol/L 3.5-5.1 [facility] Work [facility]: Sodium [Moles/Vol] 140 mmol/L 136-145 [facility] Work Phone: WBC (Bld) [#/Vol] 6.3 10*3/uL 4.4-11.0 [facility] Work Phone: Blood erythrocytes count (nu mber/volume)on 06-11-2021 RBC (Bld) [#/Vol] 4.05 10*6/uL 4.6-6.2 [facility] Work Phone: Blood hemoglobin measurement (mass/volume)on 06-11-2021 Hemoglobin (Bld) [Mass/Vol] 11.4 g/dL 13.0-16.5 [facility] Work Phone: Blood lymphocytes/100 leukoc yteson 06-11-2021 Lymphocytes/100 WBC (Bld) 43.0 % 19-41 [facility] Work Phone: Blood monocytes/100 leukocyt eson 06-11-2021 Monocytes/100 WBC (Bld) 9.5 % 0-10 [facility] Work Phone: Blood platelet mean volumeon 06-11-2021 Platelet mean volume (Bld) [Entitic vol] 10.4 fL 6.2-12.0 [facility] Work Phone: Determination of erythrocyte mean corpuscular volume (MCV)on 06-11-2021 MCV (RBC) [Entitic vol] 87.2 fL 80-94 [facility] Work Phone: Hematocrit Auto (Bld) [Volum e fraction]on 06-11-2021 Hematocrit (Bld) [Volume fraction] 35.3 % 40-54 [facility] Work Phone: Laboratory - Chemistry and C hemistry - challengeon 06-11-2021 CO2 [Moles/Vol] 32.0 mmol/L 21.0-32.0 [facility] Work Phone: Urea nitrogen/Creatinine [Mass ratio] 71.4 mg/mg 10-20 [facility] Work Phone: Laboratory - Hematology and Cell countson 06-11-2021 Erythrocyte distribution width (RBC) [Entitic vol] 44.3 fL 35.1-43.9 [facility] Work Phone: Erythrocyte distribution width (RBC) [Ratio] 14.0 % 11.6-14.6 [facility] Work Phone: Immature granulocytes/100 WBC (Bld) 0.200 % 0.0-0.9 [facility] Work Phone: Comment on above: IG% - Immature Granu locytes (promyelocytes, myelocytes and metamyelocytes) > 1% indicates that a LEFT SHIFT is Present. MCH (RBC) [Entitic mass] 28.1 pg 27.0-32.0 [facility] Work Phone: Nucleated RBC/100 WBC (Bld) [Ratio] 0 % 0-5 [facility] Work Phone: MCHC Auto (RBC) [Mass/Vol]on 06-11-2021 MCHC (RBC) [Mass/Vol] 32.3 g/dL 32-36 [facility] Work Phone: No Panel Informationon 06-11 Estimated GFR (MDRD) Amer 492 mL/min >60 [facility] Work Phone: Comment on above: GFR Calc Estimated GFR (MDRD) Non-Af Amer 407 mL/min >60 [facility] Work Phone: Comment on above: Non- GFR Calc Platelets bldon 06-11-2021 Platelets (Bld) [#/Vol] 185 10*3/uL 150-450 [facility] Work Phone: Serum or plasma calcium jacinta urement (mass/volume)on 06-11-2021 Calcium [Mass/Vol] 8.7 mg/dL 8.5-10.1 [facility] Work Phone: Serum or plasma creatinine m easurement (mass/volume)on 06-11-2021 Creatinine [Mass/Vol] 0.27 mg/dL 0.70-1.30 [facility] Work Phone: Comment on above: The validity of the calculated GFR & GFRAA in patients over 70 years has not been determined. Clinical correlation is essential. Serum or plasma urea nitroge n measurement (mass/volume)on 06-11-2021 Urea nitrogen [Mass/Vol] 19 mg/dL 7-18 [facility] Work Phone: Thin prep Papanicolaou smear with manual screeningon 06-11-2021 Thin prep Papanicolaou smear with manual screening 5 5-15 [facility] Work Phone: Absolute lymphocyte counton 05-19-2021 Lymphocytes Auto (Unsp spec) [#/Vol] 2.08 10*3/uL 0.83-4.51 [facility] Work Phone: Basophil percentageon 2021 Basophils/100 WBC (Bld) 0.5 % 0-1 [facility] Work Phone: Chloride [Moles/Vol] 104 mmol/L 98-107 [facility] Work Phone: Eosinophils/100 WBC (Bld) 9.4 % 0-5 [facility] Work Phone: Glucose [Mass/Vol] 98 mg/dL 74-106 [facility] Work Phone: Neutrophils (Bld) [#/Vol] 3.2 10*3/uL 2.0-7.7 [facility] Work Phone: Neutrophils/100 WBC (Bld) 49.4 % 47-70 [facility] Work Phone: [phone] Potassium [Moles/Vol] 4.2 mmol/L 3.5-5.1 [facility] Work Phone: [phone] Sodium [Moles/Vol] 136 mmol/L 136-145 [facility] Work Phone: [phone] WBC (Bld) [#/Vol] 6.4 10*3/uL 4.4-11.0 [facility] Work Phone: [phone] Blood erythrocytes count (nu mber/volume)on 05-19-2021 RBC (Bld) [#/Vol] 4.21 10*6/uL 4.6-6.2 [facility] Work Phone: Blood hemoglobin measurement (mass/volume)on 05-19-2021 Hemoglobin (Bld) [Mass/Vol] 11.7 g/dL 13.0-16.5 [facility] Work Phone: Blood lymphocytes/100 leukoc yteson 05-19-2021 Lymphocytes/100 WBC (Bld) 32.4 % 19-41 [facility] Work Phone: [phone] Blood monocytes/100 leukocyt eson 05-19-2021 Monocytes/100 WBC (Bld) 8.1 % 0-10 [facility] Work Phone: Blood platelet adequacy dete ction by light microscopyon 05-19-2021 Platelets LM Ql (Bld) SLT DEC ADEQ [facility] Work Phone: Blood platelet mean volumeon 05-19-2021 Platelet mean volume (Bld) [Entitic vol] 10.3 fL 6.2-12.0 [facility] Work Phone: Determination of erythrocyte mean corpuscular volume (MCV)on 05-19-2021 MCV (RBC) [Entitic vol] 86.7 fL 80-94 [facility] Work Phone: Hematocrit Auto (Bld) [Volum e fraction]on 05-19-2021 Hematocrit (Bld) [Volume fraction] 36.5 % 40-54 [facility] Work Phone: Laboratory - Chemistry and C hemistry - challengeon 05-19-2021 CO2 [Moles/Vol] 26.0 mmol/L 21.0-32.0 [facility] Work Phone: Urea nitrogen/Creatinine [Mass ratio] 32.7 mg/mg 10-20 [facility] Work Phone: Laboratory - Hematology and Cell countson 05-19-2021 Anisocytosis Ql (Bld) RARE [facility] Work Phone: Erythrocyte distribution width (RBC) [Entitic vol] 44.8 fL 35.1-43.9 [facility] Work Phone: Erythrocyte distribution width (RBC) [Ratio] 14.2 % 11.6-14.6 [facility] Work Phone: Immature granulocytes/100 WBC (Bld) 0.200 % 0.0-0.9 [facility] Work Phone: Comment on above: IG% - Immature Granu locytes (promyelocytes, myelocytes and metamyelocytes) > 1% indicates that a LEFT SHIFT is Present. MCH (RBC) [Entitic mass] 27.8 pg 27.0-32.0 [facility] Work Phone: Nucleated RBC/100 WBC (Bld) [Ratio] 0 % 0-5 [facility] Work Phone: MCHC Auto (RBC) [Mass/Vol]on 05-19-2021 MCHC (RBC) [Mass/Vol] 32.1 g/dL 32-36 [facility] Work Phone: No Panel Informationon 05-19 Estimated Creatinine Clearance Calc 189.56 ml/min [facility] Work Phone: Estimated GFR (MDRD) Amer 340 mL/min >60 [facility] Work Phone: Comment on above: GFR Calc Estimated GFR (MDRD) Non-Af Amer 281 mL/min >60 [facility] Work Phone: Comment on above: Non- GFR Calc Platelets bldon 05-19-2021 Platelets (Bld) [#/Vol] 134 10*3/uL 150-450 [facility] Work Phone: RBC morphologyon 05-19-2021 RBC morphology finding Nom (Bld) N CHROM NORMAL NORM C&C [facility] Work Phone: Serum or plasma calcium jacinta urement (mass/volume)on 05-19-2021 Calcium [Mass/Vol] 8.8 mg/dL 8.5-10.1 [facility] Work Phone: Serum or plasma creatinine m easurement (mass/volume)on 05-19-2021 Creatinine [Mass/Vol] 0.37 mg/dL 0.70-1.30 [facility] Work Phone: Comment on above: The validity of the calculated GFR & GFRAA in patients over 70 years has not been determined. Clinical correlation is essential. Serum or plasma urea nitroge n measurement (mass/volume)on 05-19-2021 Urea nitrogen [Mass/Vol] 12 mg/dL 7-18 [facility] Work Phone: Thin prep Papanicolaou smear with manual screeningon 05-19-2021 Thin prep Papanicolaou smear with manual screening 6 5-15 [facility] Work Phone: Absolute lymphocyte counton 05-13-2021 Lymphocytes Auto (Unsp spec) [#/Vol] 3.26 10*3/uL 0.83-4.51 [facility] Work Phone: Basophil percentageon 2021 Basophils/100 WBC (Bld) 0.1 % 0-1 [facility] Work Phone: Chloride [Moles/Vol] 108 mmol/L 98-107 [facility] Work Phone: Eosinophils/100 WBC (Bld) 6.0 % 0-5 [facility] Work Phone: Glucose [Mass/Vol] 107 mg/dL 74-106 [facility] Work Phone: Comment on above: Fasting Glucose resu lt from 100 to 125 mg/dL suggests IMPAIRED HOMEOSTASIS per A.D.A. criteria. Neutrophils (Bld) [#/Vol] 2.9 10*3/uL 2.0-7.7 [facility] Work Phone: Neutrophils/100 WBC (Bld) 39.4 % 47-70 [facility] Work Phone: Potassium [Moles/Vol] 3.8 mmol/L 3.5-5.1 [facility] Work Phone: Sodium [Moles/Vol] 140 mmol/L 136-145 [facility] Work Phone: WBC (Bld) [#/Vol] 7.3 10*3/uL 4.4-11.0 [facility] Work Phone: Blood erythrocytes count (nu mber/volume)on 05-13-2021 RBC (Bld) [#/Vol] 4.06 10*6/uL 4.6-6.2 [facility] Work Phone: Blood hemoglobin measurement (mass/volume)on 05-13-2021 Hemoglobin (Bld) [Mass/Vol] 11.4 g/dL 13.0-16.5 [facility] Work Phone: Blood lymphocytes/100 leukoc yteson 05-13-2021 Lymphocytes/100 WBC (Bld) 44.6 % 19-41 [facility] Work Phone: Blood monocytes/100 leukocyt eson 05-13-2021 Monocytes/100 WBC (Bld) 9.8 % 0-10 [facility] Work Phone: Blood platelet mean volumeon 05-13-2021 Platelet mean volume (Bld) [Entitic vol] 10.6 fL 6.2-12.0 [facility] Work Phone: Determination of erythrocyte mean corpuscular volume (MCV)on 05-13-2021 MCV (RBC) [Entitic vol] 87.4 fL 80-94 [facility] Work Phone: Hematocrit Auto (Bld) [Volum e fraction]on 05-13-2021 Hematocrit (Bld) [Volume fraction] 35.5 % 40-54 [facility] Work Phone: Laboratory - Chemistry and C hemistry - challengeon 05-13-2021 CO2 [Moles/Vol] 29.0 mmol/L 21.0-32.0 [facility] Work Phone: Urea nitrogen/Creatinine [Mass ratio] 46.0 mg/mg 10-20 [facility] Work Phone: Laboratory - Hematology and Cell countson 05-13-2021 Erythrocyte distribution width (RBC) [Entitic vol] 45.3 fL 35.1-43.9 [facility] Work Phone: Erythrocyte distribution width (RBC) [Ratio] 14.2 % 11.6-14.6 [facility] Work Phone: Immature granulocytes/100 WBC (Bld) 0.100 % 0.0-0.9 [facility] Work Phone: Comment on above: IG% - Immature Granu locytes (promyelocytes, myelocytes and metamyelocytes) > 1% indicates that a LEFT SHIFT is Present. MCH (RBC) [Entitic mass] 28.1 pg 27.0-32.0 [facility] Work Phone: Nucleated RBC/100 WBC (Bld) [Ratio] 0.3 % 0-5 [facility] Work Phone: MCHC Auto (RBC) [Mass/Vol]on 05-13-2021 MCHC (RBC) [Mass/Vol] 32.1 g/dL 32-36 [facility] Work Phone: No Panel Informationon 05-13 Estimated GFR (MDRD) Amer 389 mL/min >60 [facility] Work Phone: Comment on above: GFR Calc Estimated GFR (MDRD) Non-Af Amer 322 mL/min >60 [facility] Work Phone: Comment on above: Non- GFR Calc Platelets bldon 05-13-2021 Platelets (Bld) [#/Vol] 170 10*3/uL 150-450 [facility] Work Phone: Serum or plasma calcium jacinta urement (mass/volume)on 05-13-2021 Calcium [Mass/Vol] 8.9 mg/dL 8.5-10.1 [facility] Work Phone: Serum or plasma creatinine m easurement (mass/volume)on 05-13-2021 Creatinine [Mass/Vol] 0.33 mg/dL 0.70-1.30 [facility] Work Phone: Comment on above: The validity of the calculated GFR & GFRAA in patients over 70 years has not been determined. Clinical correlation is essential. Serum or plasma urea nitroge n measurement (mass/volume)on 05-13-2021 Urea nitrogen [Mass/Vol] 15 mg/dL 7-18 [facility] Work Phone: Thin prep Papanicolaou smear with manual screeningon 05-13-2021 Thin prep Papanicolaou smear with manual screening 3 5-15 [facility] Work Phone: Bronchoalveolar lavage cultu re with Gram stainon 04-28-2021 Respiratory Culture Pseudomonas aeroginosa [facility] Work Phone: Respiratory Culture Streptococcus agalactiae (B) [facility] Work Phone: Respiratory Culture Positive [facility] Work Phone: Gram stain for investigation of transfusion reactionon 04-28-2021 Microscopic observation Gram stain Nom (Unsp spec) [facility] Work Phone: Basophil percentageon 2021 Chloride [Moles/Vol] 105 mmol/L 98-[address] [facility] [address] [facility] Work Phone: Glucose [Mass/Vol] 93 mg/dL 74-106 [facility] Work [facility]: Potassium [Moles/Vol] 4.0 mmol/L 3.5-5.1 [address] [facility] Work Phone: Sodium [Moles/Vol] 139 mmol/L 136-145 [facility] Work Phone: WBC (Bld) [#/Vol] 6.8 10*3/uL 4.4-11.0 [facility] Work Phone: Blood erythrocytes count (nu mber/volume)on 04-21-2021 RBC (Bld) [#/Vol] 4.12 10*6/uL 4.6-6.2 [facility] Work Phone: Blood hemoglobin measurement (mass/volume)on 04-21-2021 Hemoglobin (Bld) [Mass/Vol] 12.2 g/dL 13.0-16.5 [facility] Work Phone: Blood platelet mean volumeon 04-21-2021 Platelet mean volume (Bld) [Entitic vol] 11.3 fL 6.2-12.0 [facility] Work Phone: Determination of erythrocyte mean corpuscular volume (MCV)on 04-21-2021 MCV (RBC) [Entitic vol] 86.9 fL 80-94 [facility] Work Phone: Hematocrit Auto (Bld) [Volum e fraction]on 04-21-2021 Hematocrit (Bld) [Volume fraction] 35.8 % 40-54 [facility] Work Phone: Laboratory - Chemistry and C hemistry - challengeon 04-21-2021 CO2 [Moles/Vol] 29.0 mmol/L 21.0-32.0 [facility] Work Phone: Urea nitrogen/Creatinine [Mass ratio] 59.4 mg/mg 10-20 [facility] Work Phone: Laboratory - Hematology and Cell countson 04-21-2021 Erythrocyte distribution width (RBC) [Entitic vol] 43.7 fL 35.1-43.9 [facility] Work Phone: Erythrocyte distribution width (RBC) [Ratio] 13.9 % 11.6-14.6 [facility] Work Phone: MCH (RBC) [Entitic mass] 29.6 pg 27.0-32.0 [facility] Work Phone: MCHC Auto (RBC) [Mass/Vol]on 04-21-2021 MCHC (RBC) [Mass/Vol] 34.1 g/dL 32- [facility] Work Phone: No Panel Informationon 04-21 Estimated GFR (MDRD) Amer 424 mL/min >60 [facility] Work Phone: Comment on above: GFR Calc Estimated GFR (MDRD) Non-Af Amer 350 mL/min >60 [facility] Work Phone: Comment on above: Non- GFR Calc Platelets bldon 04-21-2021 Platelets (Bld) [#/Vol] 185 10*3/uL 150-450 [facility] Work Phone: Serum or plasma calcium jacinta urement (mass/volume)on 04-21-2021 Calcium [Mass/Vol] 8.6 mg/dL 8.5-10.1 [facility] Work Phone: Serum or plasma creatinine m easurement (mass/volume)on 04-21-2021 Creatinine [Mass/Vol] 0.30 mg/dL 0.70-1.30 [facility] Work Phone: Comment on above: The validity of the calculated GFR & GFRAA in patients over 70 years has not been determined. Clinical correlation is essential. Serum or plasma urea nitroge n measurement (mass/volume)on 04-21-2021 Urea nitrogen [Mass/Vol] 18 mg/dL 7-18 [facility] Work Phone: Thin prep Papanicolaou smear with manual screeningon 04-21-2021 Thin prep Papanicolaou smear with manual screening 5 5-15 [facility] Work Phone: Basophil percentageon 2021 Chloride [Moles/Vol] 103 mmol/L 98-107 [facility] Work [facility]: Glucose [Mass/Vol] 90 mg/dL 74-106 [facility] Work Phone: Potassium [Moles/Vol] 3.7 mmol/L 3.5-5.1 [facility] Work Phone: Sodium [Moles/Vol] 137 mmol/L 136-145 [facility] Work Phone: WBC (Bld) [#/Vol] 5.6 10*3/uL 4.4-11.0 [facility] Work Phone: Blood erythrocytes count (nu mber/volume)on 03-25-2021 RBC (Bld) [#/Vol] 4.03 10*6/uL 4.6-6.2 [facility] Work Phone: Blood hemoglobin measurement (mass/volume)on 03-25-2021 Hemoglobin (Bld) [Mass/Vol] 11.5 g/dL 13.0-16.5 [facility] Work Phone: Blood platelet mean volumeon 03-25-2021 Platelet mean volume (Bld) [Entitic vol] 10.5 fL 6.2-12.0 [facility] Work Phone: Determination of erythrocyte mean corpuscular volume (MCV)on 03-25-2021 MCV (RBC) [Entitic vol] 86.8 fL 80-94 [facility] Work Phone: Hematocrit Auto (Bld) [Volum e fraction]on 03-25-2021 Hematocrit (Bld) [Volume fraction] 35.0 % 40-54 [facility] Work Phone: Laboratory - Chemistry and C hemistry - challengeon 03-25-2021 CO2 [Moles/Vol] 28.0 mmol/L 21.0-32.0 [facility] Work Phone: Urea nitrogen/Creatinine [Mass ratio] 54.3 mg/mg 10-20 [facility] Work Phone: Laboratory - Hematology and Cell countson 03-25-2021 Erythrocyte distribution width (RBC) [Entitic vol] 44.0 fL 35.1-43.9 [facility] Work Phone: Erythrocyte distribution width (RBC) [Ratio] 13.7 % 11.6-14.6 [facility] Work Phone: MCH (RBC) [Entitic mass] 28.5 pg 27.0-32.0 [facility] Work Phone: MCHC Auto (RBC) [Mass/Vol]on 03-25-2021 MCHC (RBC) [Mass/Vol] 32.9 g/dL 32-36 [facility] Work Phone: No Panel Informationon 03-25 Estimated GFR (MDRD) Amer 359 mL/min >60 [facility] Work Phone: Comment on above: GFR Calc Estimated GFR (MDRD) Non-Af Amer 297 mL/min >60 [facility] Work Phone: Comment on above: Non- GFR Calc Platelets bldon 03-25-2021 Platelets (Bld) [#/Vol] 175 10*3/uL 150-450 [facility] Work Phone: Serum or plasma calcium jacinta urement (mass/volume)on 03-25-2021 Calcium [Mass/Vol] 8.2 mg/dL 8.5-10.1 [facility] Work Phone: Serum or plasma creatinine m easurement (mass/volume)on 03-25-2021 Creatinine [Mass/Vol] 0.35 mg/dL 0.70-1.30 [facility] Work Phone: Comment on above: The validity of the calculated GFR & GFRAA in patients over 70 years has not been determined. Clinical correlation is essential. Serum or plasma urea nitroge n measurement (mass/volume)on 03-25-2021 Urea nitrogen [Mass/Vol] 19 mg/dL 7-18 [facility] Work Phone: Thin prep Papanicolaou smear with manual screeningon 03-25-2021 Thin prep Papanicolaou smear with manual screening 6 5-15 [facility] Work Phone: Basophil percentageon 2021 Chloride [Moles/Vol] 104 mmol/L 98-107 [facility] Work Phone: Glucose [Mass/Vol] 130 mg/dL 74-106 [facility] Work Phone: Comment on above: Fasting Glucose resu lt greater than or equal to 126 mg/dL suggests DIABETES MELLITUS per A.D.A. criteria.Please note revised GLUCOSE reference range effective 2017. Potassium [Moles/Vol] 3.2 mmol/L 3.5-5.1 [facility] Work Phone: Sodium [Moles/Vol] 139 mmol/L 136-145 [facility] Work Phone: WBC (Bld) [#/Vol] 5.2 10*3/uL 4.4-11.0 [facility] Work Phone: Blood erythrocytes count (nu mber/volume)on 02-24-2021 RBC (Bld) [#/Vol] 3.88 10*6/uL 4.6-6.2 [facility] Work Phone: Blood hemoglobin measurement (mass/volume)on 02-24-2021 Hemoglobin (Bld) [Mass/Vol] 10.8 g/dL 13.0-16.5 [facility] Work Phone: Blood platelet mean volumeon 02-24-2021 Platelet mean volume (Bld) [Entitic vol] 10.7 fL 6.2-12.0 [facility] Work Phone: Determination of erythrocyte mean corpuscular volume (MCV)on 02-24-2021 MCV (RBC) [Entitic vol] 87.4 fL 80-94 [facility] Work Phone: Hematocrit Auto (Bld) [Volum e fraction]on 02-24-2021 Hematocrit (Bld) [Volume fraction] 33.9 % 40-54 [facility] Work Phone: Laboratory - Chemistry and C hemistry - challengeon 02-24-2021 CO2 [Moles/Vol] 26.0 mmol/L 21.0-32.0 [facility] Work Phone: Urea nitrogen/Creatinine [Mass ratio] 49.8 mg/mg 10-20 [facility] Work Phone: Laboratory - Hematology and Cell countson 02-24-2021 Erythrocyte distribution width (RBC) [Entitic vol] 45.6 fL 35.1-43.9 [facility] Work Phone: Erythrocyte distribution width (RBC) [Ratio] 14.3 % 11.6-14.6 [facility] Work Phone: MCH (RBC) [Entitic mass] 27.8 pg 27.0-32.0 [facility] Work Phone: MCHC Auto (RBC) [Mass/Vol]on 02-24-2021 MCHC (RBC) [Mass/Vol] 31.9 g/dL 32-36 [facility] Work [facility]: No Panel Informationon 02-24 Estimated GFR (MDRD) Amer 463 mL/min >60 [facility] Work Phone: Comment on above: GFR Calc Estimated GFR (MDRD) Non-Af Amer 382 mL/min >60 [facility] Work Phone: Comment on above: Non- GFR Calc Platelets bldon 02-24-2021 Platelets (Bld) [#/Vol] 175 10*3/uL 150-450 [facility] Work Phone: Serum or plasma calcium jacinta urement (mass/volume)on 02-24-2021 Calcium [Mass/Vol] 8.3 mg/dL 8.5-10.1 [facility] Work Phone: Serum or plasma creatinine m easurement (mass/volume)on 02-24-2021 Creatinine [Mass/Vol] 0.28 mg/dL 0.70-1.30 [facility] Work Phone: Comment on above: The validity of the calculated GFR & GFRAA in patients over 70 years has not been determined. Clinical correlation is essential. Serum or plasma urea nitroge n measurement (mass/volume)on 02-24-2021 Urea nitrogen [Mass/Vol] 14 mg/dL 7-18 [facility] Work Phone: Thin prep Papanicolaou smear with manual screeningon 02-24-2021 Thin prep Papanicolaou smear with manual screening 9 5-15 [facility] Work Phone: Basophil percentageon 2020 Chloride [Moles/Vol] 103 mmol/L 98-107 [facility] Work Phone: Glucose [Mass/Vol] 89 mg/dL 74-106 [facility] Work Phone: Comment on above: Please note revised GLUCOSE reference range effective 2017. Potassium [Moles/Vol] 4.2 mmol/L 3.5-5.1 [facility] Work Phone: Sodium [Moles/Vol] 138 mmol/L 136-145 [facility] Work Phone: WBC (Bld) [#/Vol] 7.3 10*3/uL 4.4-11.0 [facility] Work Phone: Blood erythrocytes count (nu mber/volume)on 01-28-2021 RBC (Bld) [#/Vol] 4.27 10*6/uL 4.6-6.2 [facility] Work Phone: Blood hemoglobin measurement (mass/volume)on 01-28-2021 Hemoglobin (Bld) [Mass/Vol] 11.7 g/dL 13.0-16.5 [facility] Work Phone: Blood platelet mean volumeon 01-28-2021 Platelet mean volume (Bld) [Entitic vol] 10.6 fL 6.2-12.0 [facility] Work Phone: Determination of erythrocyte mean corpuscular volume (MCV)on 01-28-2021 MCV (RBC) [Entitic vol] 85.2 fL 80-94 [facility] Work Phone: Hematocrit Auto (Bld) [Volum e fraction]on 01-28-2021 Hematocrit (Bld) [Volume fraction] 36.4 % 40-54 [facility] Work Phone: Laboratory - Chemistry and C hemistry - challengeon 01-28-2021 CO2 [Moles/Vol] 29.0 mmol/L 21.0-32.0 [facility] Work Phone: Urea nitrogen/Creatinine [Mass ratio] 41.8 mg/mg 10-20 [facility] Work Phone: Laboratory - Hematology and Cell countson 01-28-2021 Erythrocyte distribution width (RBC) [Entitic vol] 44.3 fL 35.1-43.9 [facility] Work Phone: Erythrocyte distribution width (RBC) [Ratio] 14.3 % 11.6-14.6 [facility] Work Phone: MCH (RBC) [Entitic mass] 27.4 pg 27.0-32.0 [facility] Work Phone: MCHC Auto (RBC) [Mass/Vol]on 01-28-2021 MCHC (RBC) [Mass/Vol] 32.1 g/dL 32-36 [facility] Work Phone: No Panel Informationon 01-28 Estimated GFR (MDRD) Amer 378 mL/min >60 [facility] Work Phone: Comment on above: GFR Calc Estimated GFR (MDRD) Non-Af Amer 312 mL/min >60 [facility] Work Phone: Comment on above: Non- GFR Calc Platelets bldon 01-28-2021 Platelets (Bld) [#/Vol] 233 10*3/uL 150-450 [facility] Work Phone: Serum or plasma calcium jacinta urement (mass/volume)on 01-28-2021 Calcium [Mass/Vol] 8.8 mg/dL 8.5-10.1 [facility] Work Phone: Serum or plasma creatinine m easurement (mass/volume)on 01-28-2021 Creatinine [Mass/Vol] 0.34 mg/dL 0.70-1.30 [facility] Work Phone: Comment on above: The validity of the calculated GFR & GFRAA in patients over 70 years has not been determined. Clinical correlation is essential. Serum or plasma urea nitroge n measurement (mass/volume)on 01-28-2021 Urea nitrogen [Mass/Vol] 14 mg/dL 7-18 [facility] Work Phone: Thin prep Papanicolaou smear with manual screeningon 01-28-2021 Thin prep Papanicolaou smear with manual screening 6 5-15 [facility] Work Phone: Office Visit: Peg changeon 0 10-09-2016 Documentation of current medications (procedure) Done Invalid Interpretation Code [facility] [employer] Work Phone: Fall risk assessment No Invalid Interpretation Code [facility] [employer] Work Phone: Tobacco smoking status NHIS Never Invalid Interpretation Code [facility] [employer] Work Phone: Tobacco use CPHS Never smoker Invalid Interpretation Code [facility] [employer] Work Phone: Lab Report: BNP,B-Type NATRI URETIC PEPTIDEon 08-28-2016 BNP 9.5 pg/mL Invalid Interpretation Code 0-100 [facility] Work Phone: [phone] Lab Report: Basic Metabolic Profile (BMP)on 08-28-2016 Anion gap 4 mmol/L Low 5-15 [facility] Work Phone: [phone] BUN/Creatinine Ratio 76.9 RATIO High 10-[address] [facility] Work Phone: [phone] Calcium 8.7 mg/dL Invalid Interpretation Code 8.5-10.1 [facility] Work Phone: [phone] Chloride 106 mmol/L Invalid Interpretation Code 98-107 [facility] Work Phone: [phone] CO2 31.0 mmol/L Invalid Interpretation Code 21.0-32.0 [facility] Work Phone: [phone] Creatinine 0.32 mg/dL Low 0.70-1.30 [facility] Work Phone: [phone] eGFR (non-black) 401 mL/min/{1.73_m2} Invalid Interpretation Code >60 [facility] Work Phone: [phone] eGFR (non-black) 332 mL/min/{1.73_m2} Invalid Interpretation Code >60 [facility] Work Phone: [phone] Glucose 114 mg/dL High 70-110 [facility] Work Phone: [phone] Potassium 3.6 mmol/L Invalid Interpretation Code 3.5-5.1 [facility] Work Phone: [phone] Sodium 141 mmol/L Invalid Interpretation Code 136-145 [facility] Work Phone: [phone] Urea nitrogen 25 mg/dL High 7-18 [facility] Work Phone: [phone] Office Visiton 08-28-2016 Documentation of current medications (procedure) Done Invalid Interpretation Code [facility] Work Phone: [phone] Fall risk assessment No Invalid Interpretation Code [facility] Work Phone: [phone] Clinical Lists 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: 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 08-24-2016 Erythrocytes (RBC) 3.93 10*6/uL Low [facility] Work Phone: [phone] Hematocrit (HCT) 35.4 % Low [facility] Work Phone: [phone] Hemoglobin (HGB) 11.3 g/dL Low [facility] Work Phone: [phone] MCH 28.8 pg Invalid Interpretation Code [facility] Work Phone: [phone] MCHC 31.9 g/dL Low [facility] Work Phone: [phone] MCV 90.1 fL Invalid Interpretation Code [facility] Work Phone: [phone] Platelets 89 10*3/mm3 Low [facility] Work Phone: [phone] PMV by Garrett 12.6 fL High [facility] Work Phone: [phone] RDW-CA 15.7 % High [facility] Work Phone: [phone] WBC (Leukocytes) 4.1 10*3/uL Low [facility] Work Phone: [phone] Office Visit: S/P [facility] 06-15-2016 Documentation of current medications (procedure) Done Invalid Interpretation Code [facility] Work Phone: [phone] Fall risk assessment No Invalid Interpretation Code [facility] Work Phone: [phone] Tobacco smoking status NHIS Never Invalid Interpretation Code [facility] Work Phone: [phone] Tobacco use CPHS Never smoker Invalid Interpretation Code [facility] Work Phone: [phone] Lab Report: CBC-Complete Blo od Cnt No Diffon 05-28-2016 Erythrocytes (RBC) 3.67 10*6/uL Low 4.6-6.[address] [facility] Work Phone: [phone] Hematocrit (HCT) 32.9 % Low 40-54 [facility] Work Phone: [phone] Hemoglobin (HGB) 10.9 g/dL Low 13.0-16.5 [facility] Work Phone: [phone] MCH 29.7 pg Invalid Interpretation Code 27.0-32.0 [facility] Work Phone: [phone] MCHC 33.1 G/GL Invalid Interpretation Code 32-36 [facility] Work Phone: [phone] MCV 89.6 fL Invalid Interpretation Code 80-94 [facility] Work Phone: [phone] Platelets 115 10*3/mm3 Low 150-450 [facility] Work Phone: [phone] PMV by Garrett 11.5 fL Invalid Interpretation Code 6.2-12.0 [facility] Work Phone: [phone] RDW-CA 14.9 % High 11.6-14.6 [facility] Work Phone: [phone] red blood cell distribution width, size density 48.2 fL High 35.1-43.9 [facility] Work Phone: [phone] WBC (Leukocytes) 5.4 10*3/uL Invalid Interpretation Code 4.4-11.0 [facility] Work Phone: [phone] Lab Report: Partial Thrombop last Timeon 05-28-2016 aPTT 24.9 s Invalid Interpretation Code 24.1-36.2 [facility] Work Phone: [phone] Lab Report: Prothrombin Time w/INRon 05-28-2016 Coagulation tissue factor induced in platelet poor plasma 12.7 s Invalid Interpretation Code 11.7-14.9 [facility] Work Phone: [phone] INR in blood by coagulation 1.0 {INR} Invalid Interpretation Code [facility] Work Phone: [phone] Microbiology: Culture, Wound on 01-10-2016 wound culture Vancomycin $ 1 S Invalid Interpretation Code [facility] Work Phone: [phone] Lab Report: Basic Metabolic Profile (BMP)on 09-19-2015 Anion gap 10 mmol/L Invalid Interpretation Code 5-15 [facility] Work Phone: [phone] BUN/Creatinine Ratio 10.9 RATIO Invalid Interpretation Code 10-20 [facility] Work Phone: [phone] Calcium 8.2 mg/dL Low 8.5-10.1 [facility] Work Phone: [phone] Chloride 109 mmol/L High 98-107 [facility] Work Phone: [phone] CO2 23.0 mmol/L Invalid Interpretation Code 21.0-32.0 [facility] Work Phone: [phone] Creatinine 361.97 mL/min Invalid Interpretation Code [facility] Work Phone: [phone] Creatinine 0.28 mg/dL Low 0.70-1.30 [facility] Work Phone: [phone] eGFR (non-black) 403 mL/min/{1.73_m2} Invalid Interpretation Code >60 [facility] Work Phone: [phone] eGFR (non-black) 487 mL/min/{1.73_m2} Invalid Interpretation Code >60 [facility] Work Phone: [phone] Glucose 66 mg/dL Low 70-110 [facility] Work Phone: [phone] Potassium 3.1 mmol/L Low 3.5-5.1 [facility] Work Phone: [phone] Sodium 142 mmol/L Invalid Interpretation Code 136-145 [facility] Work Phone: [phone] Urea nitrogen 3 mg/dL Low 7-18 [facility] Work Phone: [phone] Lab Report: CBC W/Diff, Auto matedon 09-19-2015 Basophils/100 leukocytes 0.2 % Invalid Interpretation Code 0-1 [facility] Work Phone: [phone] Eosinophils/100 leukocytes 1.8 % Invalid Interpretation Code 0-5 [facility] Work Phone: [phone] immature granulocytes, percentage of total cells, blood 0.200 % Invalid Interpretation Code 0.0-0.9 [facility] Work Phone: [phone] Lymphocytes 2.07 X10 3/UL Invalid Interpretation Code 0.83-4.51 [facility] Work Phone: [phone] Lymphocytes/100 leukocytes 40.9 % Invalid Interpretation Code 19-41 [facility] Work Phone: [phone] Monocytes/100 leukocytes 13.8 % High 0-10 [facility] Work Phone: [phone] neutrophil count, blood 2.2 X10 3/UL Invalid Interpretation Code 2.0-7.7 [facility] Work Phone: Neutrophils/100 leukocytes 43.1 % Low 47-70 [facility] Work Phone: Clinical Lists Update: 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 07-03-2014 Smoking cessation education (procedure) yes Invalid Interpretation Code [facility] Work Phone: Bronchoalveolar lavage cultu re with Gram stain Respiratory Culture Pseudomonas aeroginosa [facility] Work Phone: Respiratory Culture Streptococcus agalactiae (B) [facility] Work Phone: Respiratory Culture Positive [facility] Work Phone: Gram stain for investigation of transfusion reaction Microscopic observation Gram stain Nom (Unsp spec) [facility] Work Phone: Laboratory - Microbiology an d Antimicrobial susceptibility Respiratory pathogens DNA and RNA 12b panel YAYO+probe (Unsp spec) [facility] Work Phone: No Panel Information Respiratory Panel (PCR) [facility] Work Phone: SARS-CoV-2 & FLU Antigen (Rapid) [facility] Work Phone: Vital Signs Date Time Vital Sign Value Performing Clinician Facility 06-15-2024 13:47-0400 Body height 152.[address] Chente Conn MD Work Phone: [facility] 06-15-2024 13:47-0400 Body mass index (BMI) [Ratio] 33.2 kg/m2 Dr. Chente Conn MD Work Phone: [facility] 06-15-2024 13:47-0400 Body weight 77.[address] Chente Conn MD Work Phone: [facility] 06-15-2024 13:47-0400 Diastolic blood pressure 59 mm[Hg] Dr. Chente Conn MD Work Phone: [facility] 06-15-2024 13:47-0400 Heart rate 58 /min Dr. Chente Conn MD Work Phone: [facility] 06-15-2024 13:47-0400 Inhaled oxygen flow rate 2 L/min Dr. Chente Conn MD Work Phone: [facility] 06-15-2024 13:47-0400 SaO2% (BldA) [Mass fraction] 95 % Dr. Chente Conn MD Work Phone: [facility] 06-15-2024 13:47-0400 Systolic blood pressure 87 mm[Hg] Dr. Chente Conn MD Work Phone: 0(127)126-502417 [address] 04-04-2024 08:14-0500 Body mass index (BMI) [Ratio] 33.2 kg/m2 Dr. Chente Conn MD Work Phone: 9(954)186-505929 [place] [address] 04-04-2024 08:14-0500 Body temperature 97.1 [degF] Dr. Chente oCnn MD Work Phone: 5(770)786-996429 [place] [address] 04-04-2024 08:14-0500 Body weight 77.[address] Chente Conn MD Work Phone: 9(144)827-109817 [address] 04-04-2024 08:14-0500 Diastolic blood pressure 78 mm[Hg] Dr. Chente Conn MD Work Phone: 9(068)157-257829 [place] [address] 04-04-2024 08:14-0500 Heart rate 73 /min Dr. Chente Conn MD Work Phone: 5(755)517-660329 [place] [address] 04-04-2024 08:14-0500 Inhaled oxygen flow rate 2 L/min Dr. Chente Conn MD Work Phone: 0(768)458-329906 [place] [address] 04-04-2024 08:14-0500 Respiratory rate 20 /min Dr. Chente Conn MD Work Phone: 5(713)188-097817 [address] 04-04-2024 08:14-0500 SaO2% (BldA) [Mass fraction] 97 % Dr. Chente Conn MD Work Phone: 5(160)816-168906 [place] [address] 04-04-2024 08:14-0500 Systolic blood pressure 124 mm[Hg] Dr. Chente Conn MD Work Phone: 5(266)426-858617 [address] 2024 22:05-0500 Body temperature 97.9 [degF] Dr. Chente Conn MD Work Phone: 9(714)697-412306 [place] [address] 2024 22:05-0500 Diastolic blood pressure 106 mm[Hg] Dr. Chente Conn MD Work Phone: 0(106)404-335406 [place] [address] 2024 22:05-0500 Heart rate 72 /min Dr. Chente Conn MD Work Phone: 3(440)859-805229 [place] [address] 2024 22:05-0500 Respiratory rate 20 /min Dr. Cehnte Conn MD Work Phone: 5(313)528-958029 [place] [address] 2024 22:05-0500 SaO2% (BldA) [Mass fraction] 98 % Dr. Chente Conn MD Work Phone: 5(372)970-073129 [place] [address] 2024 22:05-0500 Systolic blood pressure 155 mm[Hg] Dr. Chente Conn MD Work Phone: 3(441)842-323406 [place] [address] 2024 22:00-0500 Inhaled oxygen flow rate 4 L/min Dr. Chente Conn MD Work Phone: 7(939)137-112429 [place] [address] 2024 18:08-0500 Inhaled oxygen concentration 4 % Dr. Chente Conn MD Work Phone: 6(461)111-001929 [place] [address] 2024 16:08-0500 Body height 152.[address] Chente Conn MD Work Phone: 3(185)300-185229 [place] [address] 2024 16:08-0500 Body mass index (BMI) [Ratio] 36.2 kg/m2 Dr. Chente Conn MD Work Phone: 0(286)025-202729 [place] [address] 2024 16:08-0500 Body weight 84.[address] Chente Conn MD Work Phone: 4(321)196-599129 [place] [address] 04-13-2023 16:06-0500 Body temperature 98.6 [degF] Dr. Chente Conn Work Phone: 0(165)453-994506 [place] [address] 04-13-2023 16:06-0500 Diastolic blood pressure 78 mm[Hg] Dr. Chente Conn Work Phone: [facility] 04-13-2023 16:06-0500 Heart rate 91 /min Dr. Chente Conn Work Phone: [facility] 04-13-2023 16:06-0500 Respiratory rate 17 /min Dr. Chente Conn Work Phone: 5(838)591-030806 [place] [address] 04-13-2023 16:06-0500 SaO2% (BldA) [Mass fraction] 96 % Dr. Chente Conn Work Phone: 8(693)016-757106 [place] [address] 04-13-2023 16:06-0500 Systolic blood pressure 101 mm[Hg] Dr. Chente Conn Work Phone: 0(985)594-312206 [place] [address] 04-13-2023 12:40-0500 Inhaled oxygen flow rate 3.5 L/min Dr. Chente Conn Work Phone: 4(572)830-450606 [place] [address] 04-13-2023 12:11-0500 Body height 152.[address] Chente Conn Work Phone: 2(953)473-961506 [place] [address] 04-13-2023 12:11-0500 Body mass index (BMI) [Ratio] 34.2 kg/m2 Dr. Chente Conn Work Phone: 9(906)971-864906 [place] [address] 04-13-2023 12:11-0500 Body weight 79.[address] Chente Conn Work Phone: [facility] 03-25-2023 09:30-0500 Inhaled oxygen flow rate 5 L/min Dr. Chente Conn Work Phone: 9(603)844-595106 [place] [address] 03-25-2023 09:17-0500 Body temperature 97.3 [degF] Dr. Chente Conn Work Phone: [facility] 03-25-2023 09:17-0500 Diastolic blood pressure 78 mm[Hg] Dr. Chente Conn Work Phone: [facility] 03-25-2023 09:17-0500 Heart rate 57 /min Dr. Chente Conn Work Phone: [facility] 03-25-2023 09:17-0500 Respiratory rate 13 /min Dr. Chente Conn Work Phone: [facility] 03-25-2023 09:17-0500 SaO2% (BldA) [Mass fraction] 97 % Dr. Chente Conn Work Phone: [facility] 03-25-2023 09:17-0500 Systolic blood pressure 121 mm[Hg] Dr. Chente Conn Work Phone: [facility] 03-25-2023 03:46-0500 Body mass index (BMI) [Ratio] 34.3 kg/m2 Dr. Chente Conn Work Phone: [facility] 03-25-2023 03:46-0500 Body weight 79.[address] Chente Conn Work Phone: [facility] 03-24-2023 09:21-0500 Body height 152.[address] Chente Conn Work Phone: [facility] 03-23-2023 16:45-0500 Body temperature 97.6 [degF] Dr. Chente Conn Work Phone: [facility] 03-23-2023 16:45-0500 Diastolic blood pressure 81 mm[Hg] Dr. Chente Conn Work Phone: [facility] 03-23-2023 16:45-0500 Heart rate 112 /min Dr. Chente Conn Work Phone: [facility] 03-23-2023 16:45-0500 Respiratory rate 20 /min Dr. Chente Conn Work Phone: [facility] 03-23-2023 16:45-0500 Systolic blood pressure 124 mm[Hg] Dr. Chente Conn Work Phone: [facility] 03-23-2023 15:25-0500 SaO2% (BldA) [Mass fraction] 95 % Dr. Chente Conn Work Phone: [facility] 03-23-2023 12:12-0500 Body height 152.[address] Chente Conn Work Phone: [facility] 03-23-2023 12:12-0500 Body mass index (BMI) [Ratio] 34.8 kg/m2 Dr. Chente Conn Work Phone: [facility] 03-23-2023 12:12-0500 Body weight 80.[address] Chente Conn Work Phone: 0(010)188-780506 [place] [address] 03-02-2023 09:13-0500 Body height 152.[address] Chente Conn Work Phone: 7(188)708-941917 [address] 03-02-2023 09:13-0500 Body mass index (BMI) [Ratio] 29.2 kg/m2 Dr. Chente Conn Work Phone: 2(952)774-764706 [place] [address] 03-02-2023 09:13-0500 Body temperature 97.3 [degF] Dr. Chente Conn Work Phone: 9(619)549-225806 [place] [address] 03-02-2023 09:13-0500 Body weight 68.[address] Chente Conn Work Phone: 4(105)455-032906 [place] [address] 03-02-2023 09:13-0500 Diastolic blood pressure 74 mm[Hg] Dr. Chente Conn Work Phone: [facility] 03-02-2023 09:13-0500 Heart rate 77 /min Dr. Chente Conn Work Phone: 2(045)203-698206 [place] [address] 03-02-2023 09:13-0500 Inhaled oxygen flow rate 2 L/min Dr. Chente Conn Work Phone: [facility] 03-02-2023 09:13-0500 Respiratory rate 20 /min Dr. Chente Conn Work Phone: [facility] 03-02-2023 09:13-0500 SaO2% (BldA) [Mass fraction] 97 % Dr. Chente Conn Work Phone: [facility] 03-02-2023 09:13-0500 Systolic blood pressure 104 mm[Hg] Dr. Chente Conn Work Phone: [facility] 01-16-2023 23:36-0500 Diastolic blood pressure 78 mm[Hg] Dr. Chente Conn Work Phone: [facility] 01-16-2023 23:36-0500 Heart rate 91 /min Dr. Chente Conn Work Phone: [facility] 01-16-2023 23:36-0500 Respiratory rate 16 /min Dr. Chente Conn Work Phone: [facility] 01-16-2023 23:36-0500 SaO2% (BldA) [Mass fraction] 98 % Dr. Chente Conn Work Phone: [facility] 01-16-2023 23:36-0500 Systolic blood pressure 127 mm[Hg] Dr. Chente Conn Work Phone: [facility] 01-16-2023 21:05-0500 Inhaled oxygen flow rate 4 L/min Dr. Chente Conn Work Phone: [facility] 01-16-2023 19:17-0500 Body height 152.[address] Chente Conn Work Phone: [facility] 01-16-2023 19:17-0500 Body mass index (BMI) [Ratio] 34.4 kg/m2 Dr. Chente Conn Work Phone: [facility] 01-16-2023 19:17-0500 Body temperature 97.3 [degF] Dr. Chente Conn Work Phone: [facility] 01-16-2023 19:17-0500 Body weight [address] Chente Conn Work Phone: [facility] 12-13-2022 14:22-0400 Inhaled oxygen concentration 30 % Dr. Chente Conn Work Phone: [facility] 12-13-2022 08:25-0400 Inhaled oxygen flow rate 4.5 L/min Dr. Chente Conn Work Phone: [facility] 12-13-2022 08:25-0400 SaO2% (BldA) [Mass fraction] 97 % Dr. Chente Conn Work Phone: [facility] 12-13-2022 07:56-0400 Body temperature 98.6 [degF] Dr. Chente Conn Work Phone: [facility] 12-13-2022 07:56-0400 Diastolic blood pressure 98 mm[Hg] Dr. Chente Conn Work Phone: [facility] 12-13-2022 07:56-0400 Heart rate 89 /min Dr. Chente Conn Work Phone: [facility] 12-13-2022 07:56-0400 Respiratory rate 18 /min Dr. Chente Conn Work Phone: [facility] 12-13-2022 07:56-0400 Systolic blood pressure 150 mm[Hg] Dr. Chente Conn Work Phone: [facility] 12-11-2022 13:56-0400 Body temperature 98.2 [degF] Dr. Chente Conn Work Phone: [facility] 12-11-2022 13:56-0400 Diastolic blood pressure 40 mm[Hg] Dr. Chente Conn Work Phone: [facility] 12-11-2022 13:56-0400 Heart rate 81 /min Dr. Chente Conn Work Phone: [facility] 12-11-2022 13:56-0400 Respiratory rate 18 /min Dr. Chente Conn Work Phone: [facility] 12-11-2022 13:56-0400 SaO2% (BldA) [Mass fraction] 100 % Dr. Chente Conn Work Phone: [facility] 12-11-2022 13:56-0400 Systolic blood pressure 147 mm[Hg] Dr. Chente Conn Work Phone: [facility] 12-11-2022 13:28-0400 Inhaled oxygen concentration 30 % Dr. Chente Conn Work Phone: [facility] 12-11-2022 12:44-0400 Inhaled oxygen flow rate 8 L/min Dr. Chente Conn Work Phone: [facility] 12-10-2022 16:06-0400 Body height 152.[address] Chente Conn Work Phone: [facility] 12-10-2022 16:06-0400 Body weight 77.[address] Chente Conn Work Phone: [facility] 12-10-2022 14:53-0400 Body mass index (BMI) [Ratio] 33.3 kg/m2 Dr. Chente Conn Work Phone: [facility] 12-10-2022 14:36-0400 Heart rate 112 /min Dr. Chente Conn Work Phone: [facility] 12-10-2022 14:36-0400 Respiratory rate 26 /min Dr. Chente Conn Work Phone: [facility] 12-10-2022 14:36-0400 SaO2% (BldA) [Mass fraction] 98 % Dr. Chente Conn Work Phone: [facility] 12-10-2022 12:40-0400 Body temperature 99.3 [degF] Dr. Chente Conn Work Phone: [facility] 12-10-2022 12:40-0400 Diastolic blood pressure 86 mm[Hg] Dr. Chente Conn Work Phone: [facility] 12-10-2022 12:40-0400 Systolic blood pressure 140 mm[Hg] Dr. Chente Conn Work Phone: [facility] 12-10-2022 09:37-0400 Body height 152.[address] Chente Conn Work Phone: [facility] 12-10-2022 09:37-0400 Body mass index (BMI) [Ratio] 40 kg/m2 Dr. Chente Conn Work Phone: [facility] 12-10-2022 09:37-0400 Body weight [address] Chente Conn Work Phone: [facility] 11-05-2022 14:00-0400 Inhaled oxygen concentration 28 % Dr. Chente Conn Work Phone: 4(143)612-992717 [address] 11-05-2022 13:30-0400 Body temperature 97 [degF] Dr. Chente Conn Work Phone: 2(469)076-537117 [address] 11-05-2022 13:30-0400 Diastolic blood pressure 93 mm[Hg] Dr. Chente Conn Work Phone: [facility] 11-05-2022 13:30-0400 Heart rate 90 /min Dr. Chente Conn Work Phone: 6(025)690-751906 [place] [address] 11-05-2022 13:30-0400 Inhaled oxygen flow rate 3 L/min Dr. Chente Conn Work Phone: [facility] 11-05-2022 13:30-0400 Respiratory rate 16 /min Dr. Chente Conn Work Phone: [facility] 11-05-2022 13:30-0400 SaO2% (BldA) [Mass fraction] 93 % Dr. Chente Conn Work Phone: [facility] 11-05-2022 13:30-0400 Systolic blood pressure 138 mm[Hg] Dr. Chente Conn Work Phone: [facility] 11-02-2022 10:44-0400 Body height 152.[address] Chente Conn Work Phone: [facility] 11-02-2022 10:44-0400 Body weight [address] Chente Conn Work Phone: [facility] 10-28-2022 05:38-0400 Body mass index (BMI) [Ratio] 32.8 kg/m2 Dr. Chente Conn Work Phone: [facility] 09-17-2022 13:19-0400 Body height 150.[address] Chente Conn Work Phone: [facility] 09-17-2022 13:19-0400 Body mass index (BMI) [Ratio] 32.2 kg/m2 Dr. Chente Conn Work Phone: [facility] 09-17-2022 13:19-0400 Body temperature 96.6 [degF] Dr. Chente Conn Work Phone: [facility] 09-17-2022 13:19-0400 Body weight 72.[address] Chente Conn Work Phone: [facility] 09-17-2022 13:19-0400 Diastolic blood pressure 72 mm[Hg] Dr. Chente Conn Work Phone: [facility] 09-17-2022 13:19-0400 Heart rate 78 /min Dr. Chente Conn Work Phone: [facility] 09-17-2022 13:19-0400 Inhaled oxygen flow rate 2 L/min Dr. Chente Conn Work Phone: [facility] 09-17-2022 13:19-0400 Respiratory rate 20 /min Dr. Chente Conn Work Phone: [facility] 09-17-2022 13:19-0400 SaO2% (BldA) [Mass fraction] 96 % Dr. Chente Conn Work Phone: [facility] 09-17-2022 13:19-0400 Systolic blood pressure 110 mm[Hg] Dr. Chente Conn Work Phone: [facility] 05-01-2023 20:35-0400 Body temperature 97.6 [degF] Dr. Chente Conn Work Phone: [facility] 06-22-2022 20:35-0400 Diastolic blood pressure 74 mm[Hg] Dr. Chente Conn Work Phone: [facility] 06-22-2022 20:35-0400 Heart rate 90 /min Dr. Chente Conn Work Phone: [facility] 06-22-2022 20:35-0400 Respiratory rate 18 /min Dr. Chente Conn Work Phone: [facility] 06-22-2022 20:35-0400 SaO2% (BldA) [Mass fraction] 94 % Dr. Chente Conn Work Phone: [facility] 06-22-2022 20:35-0400 Systolic blood pressure 102 mm[Hg] Dr. Chente Conn Work Phone: [facility] 06-22-2022 18:20-0400 Body height 150.[address] Chente Conn Work Phone: [facility] 06-22-2022 18:20-0400 Body mass index (BMI) [Ratio] 38.7 kg/m2 Dr. Chente Conn Work Phone: [facility] 06-22-2022 18:20-0400 Body weight 87.[address] Chente Conn Work Phone: [facility] 06-22-2022 18:20-0400 Inhaled oxygen flow rate 4 L/min Dr. Chente Conn Work Phone: [facility] 06-12-2022 12:17-0400 Body temperature 97.5 [degF] Dr. Chente Conn Work Phone: [facility] 06-12-2022 12:17-0400 Diastolic blood pressure 73 mm[Hg] Dr. Chente Conn Work Phone: [facility] 06-12-2022 12:17-0400 Heart rate 64 /min Dr. Chente Conn Work Phone: [facility] 06-12-2022 12:17-0400 Respiratory rate 18 /min Dr. Chente Conn Work Phone: [facility] 06-12-2022 12:17-0400 SaO2% (BldA) [Mass fraction] 96 % Dr. Chente Conn Work Phone: [facility] 06-12-2022 12:17-0400 Systolic blood pressure 109 mm[Hg] Dr. Chente Conn Work Phone: [facility] 06-12-2022 10:38-0400 Body height 149.[address] Chente Conn Work Phone: [phone](506)[phone] [place] [address] 06-12-2022 10:38-0400 Body mass index (BMI) [Ratio] 34.2 kg/m2 Dr. Chente Conn Work Phone: [phone] [place] [address] 06-12-2022 10:38-0400 Body weight [address] Chente Conn Work Phone: [facility] 06-12-2022 10:38-0400 Inhaled oxygen flow rate 5 L/min Dr. Chente Conn Work Phone: [facility] 04-01-2022 09:00-0500 Body temperature 99.2 [degF] Dr. Chente Conn Work Phone: [facility] 04-01-2022 09:00-0500 Diastolic blood pressure 90 mm[Hg] Dr. Chente Conn Work Phone: [facility] 04-01-2022 09:00-0500 Heart rate 88 /min Dr. Chente Conn Work Phone: [facility] 04-01-2022 09:00-0500 Inhaled oxygen flow rate 4 L/min Dr. Chente Conn Work Phone: [facility] 04-01-2022 09:00-0500 Respiratory rate 20 /min Dr. Chente Conn Work Phone: [facility] 04-01-2022 09:00-0500 SaO2% (BldA) [Mass fraction] 96 % Dr. Chente Conn Work Phone: [facility] 04-01-2022 09:00-0500 Systolic blood pressure 117 mm[Hg] Dr. Chente Conn Work Phone: [facility] 04-01-2022 04:58-0500 Body weight 76.[address] Chente Conn Work Phone: [facility] 03-31-2022 09:20-0500 Body height 151.[address] Chente Conn Work Phone: [facility] 03-24-2022 21:35-0500 Body height 151.[address] Chente Conn Work Phone: [facility] 03-24-2022 21:35-0500 Body mass index (BMI) [Ratio] 33.8 kg/m2 Dr. Chente Conn Work Phone: [facility] 03-24-2022 21:35-0500 Body weight 78.[address] Chente Conn Work Phone: [facility] 03-24-2022 20:54-0500 Body temperature 104 [degF] Dr. Chente Conn Work Phone: [facility] 03-24-2022 20:54-0500 Diastolic blood pressure 123 mm[Hg] Dr. Chente Conn Work Phone: [facility] 03-24-2022 20:54-0500 Heart rate 153 /min Dr. Chente Conn Work Phone: [facility] 03-24-2022 20:54-0500 Respiratory rate 44 /min Dr. Chente Conn Work Phone: [facility] 03-24-2022 20:54-0500 SaO2% (BldA) [Mass fraction] 93 % Dr. Chente Conn Work Phone: [facility] 03-24-2022 20:54-0500 Systolic blood pressure 145 mm[Hg] Dr. Chente Conn Work Phone: [facility] 03-24-2022 17:08-0500 Body height 152.[address] Chente Conn Work Phone: [facility] 03-24-2022 17:08-0500 Body mass index (BMI) [Ratio] 31.2 kg/m2 Dr. Chente Conn Work Phone: [facility] 03-24-2022 17:08-0500 Body weight 72.[address] Chente Conn Work Phone: [facility] 02-24-2022 22:38-0500 Body temperature 98.9 [degF] Dr. Chente Conn Work Phone: [facility] 02-24-2022 22:38-0500 Diastolic blood pressure 78 mm[Hg] Dr. Chente Conn Work Phone: [facility] 02-24-2022 22:38-0500 Heart rate 78 /min Dr. Chente Conn Work Phone: [facility] 02-24-2022 22:38-0500 Respiratory rate 13 /min Dr. Chente Conn Work Phone: [facility] 02-24-2022 22:38-0500 SaO2% (BldA) [Mass fraction] 95 % Dr. Chente Conn Work Phone: [facility] 02-24-2022 22:38-0500 Systolic blood pressure 127 mm[Hg] Dr. Chente Conn Work Phone: [facility] 02-24-2022 19:50-0500 Inhaled oxygen flow rate 4 L/min Dr. Chente Conn Work Phone: [facility] 02-24-2022 16:09-0500 Body height 152.[address] Chente Conn Work Phone: [facility] Work Phone: 02-24-2022 16:09-0500 Body mass index (BMI) [Ratio] 31.6 kg/m2 Dr. Chente Conn Work Phone: [facility] 02-24-2022 16:09-0500 Body weight 73.[address] Chente Conn Work Phone: [facility] 01-06-2022 13:12-0500 Body height 152.[address] Chente Conn Work Phone: [facility] Work Phone: 01-06-2022 13:12-0500 Body mass index (BMI) [Ratio] 31.2 kg/m2 Dr. Chente Conn Work Phone: [facility] 01-06-2022 13:12-0500 Body weight 72.[address] Chente Conn Work Phone: [facility] 01-06-2022 13:12-0500 Diastolic blood pressure 109 mm[Hg] Dr. Chente Conn Work Phone: [facility] 01-06-2022 13:12-0500 Heart rate 106 /min Dr. Chente Conn Work Phone: [facility] 01-06-2022 13:12-0500 Respiratory rate 18 /min Dr. Chente Conn Work Phone: [facility] 01-06-2022 13:12-0500 SaO2% (BldA) [Mass fraction] 94 % Dr. Chente Conn Work Phone: [facility] 01-06-2022 13:12-0500 Systolic blood pressure 144 mm[Hg] Dr. Chente Conn Work Phone: [facility] 12-19-2021 13:22-0400 Body height 152.[address] Chente Conn Work Phone: [facility] Work Phone: 12-19-2021 13:22-0400 Body mass index (BMI) [Ratio] 31.2 kg/m2 Dr. Chente Conn Work Phone: [facility] 12-19-2021 13:22-0400 Body temperature 95.7 [degF] Dr. Chente Conn Work Phone: [facility] 12-19-2021 13:22-0400 Body weight 72.[address] Chente Conn Work Phone: [facility] 12-19-2021 13:22-0400 Diastolic blood pressure 76 mm[Hg] Dr. Chente Conn Work Phone: 4([phone] [place] [address] 12-19-2021 13:22-0400 Heart rate 66 /min Dr. Chente Conn Work Phone: [facility] 12-19-2021 13:22-0400 Inhaled oxygen flow rate 2 L/min Dr. Chente Conn Work Phone: [facility] 12-19-2021 13:22-0400 Respiratory rate 18 /min Dr. Chente Conn Work Phone: [facility] 12-19-2021 13:22-0400 SaO2% (BldA) [Mass fraction] 94 % Dr. Chente Conn Work Phone: [facility] 12-19-2021 13:22-0400 Systolic blood pressure 110 mm[Hg] Dr. Chente Conn Work Phone: [facility] 12-05-2021 15:00-0400 Body temperature 98.2 [degF] Dr. Chente Conn Work Phone: [facility] 12-05-2021 15:00-0400 Diastolic blood pressure 95 mm[Hg] Dr. Chente Conn Work Phone: [facility] 12-05-2021 15:00-0400 Heart rate 86 /min Dr. Chente Conn Work Phone: [facility] 12-05-2021 15:00-0400 Inhaled oxygen flow rate 4 L/min Dr. Chente Conn Work Phone: [facility] 12-05-2021 15:00-0400 Respiratory rate 17 /min Dr. Chente Conn Work Phone: [facility] 12-05-2021 15:00-0400 SaO2% (BldA) [Mass fraction] 95 % Dr. Chente Conn Work Phone: [facility] 12-05-2021 15:00-0400 Systolic blood pressure 118 mm[Hg] Dr. Chente Conn Work Phone: [facility] 12-04-2021 11:44-0400 Body height 152.[address] Chente Conn Work Phone: [facility] Work Phone: 12-04-2021 11:44-0400 Body weight 74.[address] Chente Conn Work Phone: [facility] 11-30-2021 15:07-0400 Body mass index (BMI) [Ratio] 32.2 kg/m2 Dr. Chente Conn Work Phone: [facility] 11-30-2021 14:32-0400 Body temperature 97.8 [degF] Dr. Chente Conn Work Phone: [facility] Work Phone: 11-30-2021 14:32-0400 Diastolic blood pressure 69 mm[Hg] Dr. Chente Conn Work Phone: [facility] Work Phone: 11-30-2021 14:32-0400 Heart rate 76 /min Dr. Chente Conn Work Phone: [facility] Work Phone: 11-30-2021 14:32-0400 Respiratory rate 15 /min Dr. Chente Conn Work Phone: [facility] Work Phone: 11-30-2021 14:32-0400 SaO2% (BldA) [Mass fraction] 96 % Dr. Chente Conn Work Phone: [facility] Work Phone: 11-30-2021 14:32-0400 Systolic blood pressure 112 mm[Hg] Dr. Chente Conn Work Phone: [facility] Work Phone: 11-30-2021 12:19-0400 Inhaled oxygen flow rate 4 L/min Dr. Chente Conn Work Phone: [facility] Work Phone: 11-30-2021 11:05-0400 Body height 121.[address] Chente Conn Work Phone: [facility] Work Phone: 11-30-2021 11:05-0400 Body mass index (BMI) [Ratio] 53.1 kg/m2 Dr. Chente Conn Work Phone: [facility] Work Phone: 11-30-2021 11:05-0400 Body weight [address] Chente Conn Work Phone: [facility] Work Phone: 08-19-2021 14:26-0400 Body height 152.[address] Chente Conn Work Phone: [facility] Work Phone: 08-19-2021 14:17-0400 Body mass index (BMI) [Ratio] 30.8 kg/m2 Dr. Chente Conn Work Phone: [facility] Work Phone: 08-19-2021 14:17-0400 Body temperature 97 [degF] Dr. Chente Conn Work Phone: [facility] Work Phone: 08-19-2021 14:17-0400 Body weight 71.[address] Chente Conn Work Phone: [facility] Work Phone: 08-19-2021 14:17-0400 Diastolic blood pressure 68 mm[Hg] Dr. Chente Conn Work Phone: [facility] Work Phone: 08-19-2021 14:17-0400 Heart rate 57 /min Dr. Chente Conn Work Phone: [facility] Work Phone: 08-19-2021 14:17-0400 Respiratory rate 17 /min Dr. Chente Conn Work Phone: [facility] Work Phone: 08-19-2021 14:17-0400 SaO2% (BldA) [Mass fraction] 97 % Dr. Chente Conn Work Phone: [facility] Work Phone: 08-19-2021 14:17-0400 Systolic blood pressure 110 mm[Hg] Dr. Chente Conn Work Phone: [facility] Work Phone: 07-16-2021 09:03-0400 Body height 152.[address] Chente Conn Work Phone: [facility] Work Phone: 07-16-2021 09:03-0400 Body mass index (BMI) [Ratio] 30.7 kg/m2 Dr. Chente Conn Work Phone: [facility] Work Phone: 07-16-2021 09:03-0400 Body weight 71.[address] Chente Conn Work Phone: [facility] Work Phone: 07-16-2021 09:03-0400 Diastolic blood pressure 71 mm[Hg] Dr. Chente Conn Work Phone: [facility] Work Phone: 07-16-2021 09:03-0400 Heart rate 68 /min Dr. Chente Conn Work Phone: [facility] Work Phone: 07-16-2021 09:03-0400 Respiratory rate 18 /min Dr. Chente Conn Work Phone: [facility] Work Phone: 07-16-2021 09:03-0400 SaO2% (BldA) [Mass fraction] 99 % Dr. Chente Conn Work Phone: [facility] Work Phone: 07-16-2021 09:03-0400 Systolic blood pressure 102 mm[Hg] Dr. Chente Conn Work Phone: [facility] Work Phone: 05-19-2021 21:15-0400 Diastolic blood pressure 72 mm[Hg] Dr. Chente Conn Work Phone: [facility] Work Phone: 05-19-2021 21:15-0400 Heart rate 79 /min Dr. Chente Conn Work Phone: [facility] Work Phone: 05-19-2021 21:15-0400 Respiratory rate 15 /min Dr. Chente Conn Work Phone: [facility] Work Phone: 05-19-2021 21:15-0400 SaO2% (BldA) [Mass fraction] 98 % Dr. Chente Conn Work Phone: [facility] Work Phone: 05-19-2021 21:15-0400 Systolic blood pressure 140 mm[Hg] Dr. Chente Conn Work Phone: [facility] Work Phone: 05-19-2021 18:07-0400 Body height 152.[address] Chente Conn Work Phone: [facility] Work Phone: 05-19-2021 18:07-0400 Body mass index (BMI) [Ratio] 31.8 kg/m2 Dr. Chente Conn Work Phone: [facility] Work Phone: 05-19-2021 18:07-0400 Body temperature 97.6 [degF] Dr. Chente Conn Work Phone: [facility] Work Phone: 05-19-2021 18:07-0400 Body weight [address] Chente Conn Work Phone: [facility] Work Phone: 04-15-2021 13:10-0500 Body temperature 97.2 [degF] Dr. Chente Conn Work Phone: [facility] Work Phone: 04-15-2021 13:10-0500 Body weight 72.[address] Chente Conn Work Phone: [facility] Work Phone: 04-15-2021 13:10-0500 Heart rate 85 /min Dr. Chente Conn Work Phone: [facility] Work Phone: 04-15-2021 13:10-0500 Respiratory rate 16 /min Dr. Chente Conn Work Phone: [facility] Work Phone: 04-15-2021 13:10-0500 SaO2% (BldA) [Mass fraction] 95 % Dr. Chente Conn Work Phone: [facility] Work Phone: 04-15-2021 12:10-0500 Body temperature 97.2 [degF] Dr. Chente Conn Work Phone: [facility] Work Phone: 04-15-2021 12:10-0500 Body weight 72.[address] Chente Conn Work Phone: [facility] Work Phone: 04-15-2021 12:10-0500 Heart rate 85 /min Dr. Chente Conn Work Phone: [facility] Work Phone: 04-15-2021 12:10-0500 Respiratory rate 16 /min Dr. Chente Conn Work Phone: [facility] Work Phone: 04-15-2021 12:10-0500 SaO2% (BldA) [Mass fraction] 95 % Dr. Chente Conn Work Phone: [facility] Work Phone: 03-24-2021 23:17-0500 Body mass index (BMI) [Ratio] 0 kg/m2 Dr. Chente Conn Work Phone: [facility] Work Phone: 02-21-2021 23:10-0500 Body mass index (BMI) [Ratio] 0 kg/m2 Dr. Chente Conn Work Phone: [facility] Work Phone: 01-21-2021 23:06-0500 Body mass index (BMI) [Ratio] 0 kg/m2 Dr. Chente Conn Work Phone: [facility] Work Phone: 08-28-2016 09:39-0400 BMI (Body Mass Index) 30.27 kg/m2 [facility] [employer] [facility] Work Phone: 08-28-2016 09:39-0400 BP Diastolic 62 mm[Hg] [facility] Work Phone: 08-28-2016 09:39-0400 BP Systolic 106 mm[Hg] [facility] [employer] [facility] Work Phone: 08-28-2016 09:39-0400 Height 152.4 cm [facility] [employer] Work Phone: 08-28-2016 09:39-0400 Pulse (Heart Rate) 78 /min [facility] [employer] [facility] Work Phone: 08-28-2016 09:39-0400 Respiratory Rate 12 /min Harumi De[facility]is [facility] Work Phone: 08-28-2016 09:39-0400 Weight 70.31 kg Harbennett DeFinis [facility] Work Phone: 06-15-2016 11:14-0400 BP Diastolic 87 mm[Hg] Chente Lara [employer] [facility] Work Phone: 06-15-2016 11:14-0400 BP Systolic 111 mm[Hg] Chente Lara [employer] [facility] Work Phone: 06-15-2016 11:14-0400 Pulse (Heart Rate) 60 /min Chente Lara [employer] [facility] Work Phone: 06-15-2016 11:14-0400 Respiratory Rate 16 /min Chente Lara [employer] [facility] Work Phone: 01-08-2016 09:55-0500 Body Temperature 97.2 [degF] Chente Marco [employer] [facility] Work Phone: Encounters Encounter Date Encounter Type Care Provider Facility Start: 09-03-2024 ambulatory Chente Conn Facilit y:[facility] Start: 09-01-2024 ambulatory Chente Conn Facilit y:[facility] Start: 08-22-2024 End: 08-22-[address] Chente Conn MD Work Phone: -Laboratory Specimen Start: 08-22-2024 End: 08-22-[address] Chente Conn MD -Laboratory Specimen Work Phone: Start: 08-22-2024 End: 08-22-2024 ambulatory Chente Conn Facility:[facility] Start: 07-26-2024 End: 07-26-2024 ambulatory Chente Conn MD [facility] Work Phone: Start: 07-26-2024 End: 07-26-[address] Roddy Quinones MD -Radiology [place] Work Phone: Start: 07-25-2024 End: 08-21-[address] Chente Conn MD -Laboratory Specimen Work Phone: Start: 07-25-[address] Chente Conn MD -Laboratory Specimen Work Phone: Start: 07-25-2024 End: 08-21-[address] Chente Conn MD Work Phone: -Laboratory Specimen Start: 07-18-2024 End: 07-18-[address] Chente Conn MD Work Phone: [facility] Work Phone: Start: 07-18-2024 End: 07-18-[address] Matteo Posadas MD -Laboratory Specimen Work Phone: Start: 07-18-2024 End: 07-18-2024 ambulatory Chente Conn Facility:[facility] Start: 06-26-2024 End: 06-26-[address] Chente Conn MD Work Phone: [facility] Work Phone: Start: 06-26-2024 End: 06-26-[address] Chente Conn MD -Laboratory, Specimen Work Phone: Start: 06-26-2024 End: 06-26-2024 ambulatory Chente Conn Facility:[facility] Start: 06-15-2024 End: 06-15-[address] Matteo Posadas MD -[facility] Work Phone: Start: 06-15-2024 End: 06-15-2024 ambulatory Chente Conn Facility:[facility] Start: 05-29-2024 End: 06-21-[address] Chente Conn MD -Laboratory, Specimen Work Phone: Start: 05-29-2024 End: 06-21-2024 ambulatory Chente Conn Facility:[facility] Start: 05-09-2024 End: 05-09-[address] Chente Conn MD Work Phone: [facility] Work Phone: Start: 05-09-2024 End: 05-09-2024 Patient encounter procedure Valarie Kee NP-C -Laboratory, Specimen Work Phone: Start: 05-09-2024 End: 05-09-2024 ambulatory Chente Conn Facility:[facility] Start: 05-01-2024 End: 05-22-[address] Chente Conn MD -Laboratory, Specimen Work Phone: Start: 05-01-[address] Chente Conn MD -Laboratory, Specimen Work Phone: Start: 05-01-2024 End: 05-22-[address] Chente Conn MD Work Phone: [facility] Work Phone: Start: 04-27-2024 ambulatory Chente Conn [facility] y:[facility] Start: 04-25-2024 End: 04-25-[address] Chente Conn MD -Outpatient Bone Densitometry Work Phone: Start: 04-25-2024 End: 04-25-2024 ambulatory Chente Conn Facility:[facility] Start: 04-04-2024 End: 04-04-2024 Patient encounter procedure [facility] Work Phone: Start: 04-04-2024 End: 04-04-2024 ambulatory Chente Conn Facility:[facility] Start: 04-03-2024 End: 04-21-[address] Chente Conn MD -Laboratory, Specimen Work Phone: Start: 04-03-2024 End: 04-21-2024 ambulatory Chente Conn Facility:[facility] Start: 03-16-2024 End: 03-16-[address] Roddy Quinones MD -Radiology, [facility] Work Phone: Start: 03-16-2024 End: 03-16-2024 ambulatory Chente Conn Facility:[facility] Start: 03-08-2024 End: 03-08-[address] Chente Conn MD -Laboratory, Specimen Work Phone: Start: 03-08-2024 End: 03-08-2024 ambulatory Chente Conn Facility:[facility] Start: 02-24-2024 End: 03-24-2024 ambulatory Chente Conn Facility:[facility] Start: 02-24-2024 End: 03-24-[address] Chente Conn MD -Laboratory, Specimen Work Phone: Start: 2024 ambulatory Chente Conn Facilit y:[facility] Start: 2024 Non-patient / Non-visit Dr. Torey Weber MD -[facility] Start: 2024 End: 2024 Emergency department patient visit Dr. Racquel Moss DO -Emergency Department Work Phone: Start: 01-27-2024 End: 02-22-[address] Chente Conn MD -Laboratory, Specimen Work Phone: Start: 01-27-2024 End: 02-22-2024 ambulatory Chente Conn Facility:[facility] Start: 01-14-2024 End: 01-14-2024 ambulatory Chente Conn Facility:[facility] Start: 01-04-2024 ambulatory Michael Posadas Facility:[facility] Start: 01-04-2024 End: 01-10-2024 Evaluation and management of inpatient Michael Posadas Facility:[facility] Start: 12-28-2023 End: 12-28-2023 ambulatory Chente Conn Facility:[facility] Start: 11-29-2023 End: 11-29-2023 ambulatory Chente Conn Facility:[facility] Start: 10-29-2023 End: 10-29-2023 ambulatory Chente Conn Facility:[facility] Start: 09-30-2023 End: 10-01-2023 ambulatory Chente Conn Facility:[facility] Start: 09-15-2023 End: 09-15-2023 ambulatory Stefan Bri Facility:[facility] Start: 09-10-2023 End: 09-10-2023 ambulatory Chente Conn Facility:[facility] Start: 09-06-2023 End: 09-06-2023 ambulatory Torey Huffman Facility:[facility] Start: 06-14-2023 End: 06-14-[address] Chente Conn Work Phone: [facility] Work Phone: Start: 06-14-2023 End: 06-14-[address] Chente Conn Work Phone: [facility]-Laboratory, Specimen Work Phone: Start: 05-17-2023 End: 05-17-[address] Chente Conn Work Phone: [facility] Work Phone: Start: 05-17-2023 End: 05-17-[address] [facility] Start: 04-19-2023 End: 04-19-[address] Chente Conn Work Phone: [facility] Work Phone: Start: 04-19-2023 End: 04-19-[address] [facility] Work [facility] Start: 04-13-2023 End: 04-13-2023 Emergency department patient visit Dr. Chente Conn Work Phone: [facility]Emergency Department Work Phone: Start: 03-25-2023 Non-patient / Non-visit Dr. Chente Conn Work Phone: [facility] Work Phone: Start: 03-25-2023 Non-patient / Non-visit Dr. Chente Conn Work Phone: [facility] Start: 03-25-2023 Dr. Chente canales Work Phone: [facility] Start: 03-24-2023 Non-patient / Non-visit Dr. Chente Conn Work Phone: [facility] Work Phone: Start: 03-24-2023 Dr. Chente canales Work Phone: [facility] Work Phone: Start: 03-24-2023 Non-patient / Non-visit Dr. Chente Conn Work Phone: [facility] Start: 03-24-2023 Dr. Chente canales Work Phone: [facility] Start: 03-23-2023 Non-patient / Non-visit Dr. Chente Conn Work Phone: [facility] Work Phone: Start: 03-23-2023 End: 03-25-2023 Evaluation and management of inpatient Dr. Chente Conn Work Phone: [facility]-Intensive Care Unit Work Phone: Start: 03-23-2023 End: 03-25-2023 Dr. [facility] Start: 03-02-2023 End: 03-02-[address] Chente Conn Work Phone: [facility]-Pulmonary Medicine [facility] Work Phone: Start: 03-02-2023 End: 03-02-2023 Dr. Chente Conn Work Phone: [facility]-Pulmonary Medicine [facility] Work Phone: Start: 03-01-2023 End: 03-01-[address] Chente Conn Work Phone: [facility] Work Phone: Start: 03-01-2023 End: 03-01-[address] [facility] Work Phone: Start: 03-01-2023 End: 03-01-2023 Dr. Chente [facility] Work Phone: Start: 02-03-2023 End: 02-03-[address] Chente Conn Work Phone: [facility] Work Phone: Start: 02-03-2023 End: 02-03-[address] Chente Conn [facility] Work Phone: Start: 02-03-2023 End: 02-03-2023 Dr. Chente Conn [facility] Work Phone: Start: 01-16-2023 End: 01-16-2023 Emergency department patient visit Dr. Chente Conn Work Phone: [facility]-Emergency Department Work Phone: Start: 01-16-2023 End: 01-16-2023 Dr. Chente Conn Work Phone: [facility]Emergency Department Work Phone: Start: 01-04-2023 End: 01-04-[address] Chente Conn Work Phone: [facility]-Laboratory, Specimen Work Phone: Start: 01-04-2023 End: 01-04-2023 Dr. Chente Conn Work Phone: [facility]-Laboratory, Specimen Work Phone: Start: 12-13-2022 Non-patient / Non-visit Dr. Chente Conn Work Phone: [facility] Work Phone: Start: 12-13-2022 Dr. Chente canales Work Phone: [facility] Work Phone: Start: 12-12-2022 Non-patient / Non-visit Dr. Cehnte Conn Work Phone: [facility] Start: 12-12-2022 Dr. Chente canales Work Phone: [facility] Start: 12-12-2022 Non-patient / Non-visit Dr. Chente Conn Work Phone: [facility] Work Phone: Start: 12-12-2022 Dr. Chente canales Work Phone: [facility] Work Phone: Start: 12-11-2022 Non-patient / Non-visit Dr. Chente Conn Work Phone: [facility] Work Phone: Start: 12-11-2022 Dr. Chente canales Work Phone: [facility] Work Phone: Start: 12-11-2022 Non-patient / Non-visit Dr. Chente Conn Work Phone: [facility] Start: 12-11-2022 Dr. Chente canales Work Phone: [facility] Start: 12-10-2022 End: 12-13-2022 Evaluation and management of inpatient Dr. Chente Conn [facility] Work [facility]: Start: 12-10-2022 End: 12-13-2022 Dr. Chente Conn [facility] Work [facility]: Start: 12-07-2022 End: 12-07-[address] Chente Conn Work Phone: [facility] Work Phone: Start: 12-07-2022 End: 12-07-[address] Chente Conn [facility] Work [facility]: Start: 12-07-2022 End: 12-07-2022 Dr. Chente Conn [facility] Work Phone: Start: 11-12-2022 End: 11-12-[address] Chente Conn [facility] Work [facility]: Start: 11-05-2022 Non-patient / Non-visit Dr. Chente Conn Work Phone: [facility] Work Phone: Start: 11-04-2022 Non-patient / Non-visit Dr. Chente Conn Work Phone: [facility] Work Phone: Start: 11-03-2022 Non-patient / Non-visit Dr. Chente Conn Work Phone: [facility] Work Phone: Start: 11-02-2022 Non-patient / Non-visit Dr. Chente Conn Work Phone: [facility] Work Phone: Start: 11-01-2022 Non-patient / Non-visit Dr. Chente Conn Work Phone: [facility] Work Phone: Start: 10-31-2022 Non-patient / Non-visit Dr. Chente Conn Work Phone: [facility] Work Phone: Start: 10-30-2022 Non-patient / Non-visit Dr. Chente Conn Work Phone: [facility] Work Phone: Start: 10-29-2022 Non-patient / Non-visit Dr. Chente Conn Work Phone: [facility] Work Phone: Start: 10-28-2022 Non-patient / Non-visit Dr. Chente Conn Work Phone: [facility] Work Phone: Start: 10-27-2022 Non-patient / Non-visit Dr. Chente Conn Work Phone: [facility] Work Phone: Start: 10-27-2022 End: 11-05-2022 Evaluation and management of inpatient Dr. Chente Conn Work Phone: [facility]-Intensive Care Unit Work Phone: Start: 10-14-2022 End: 10-14-[address] Chente Conn Work Phone: [facility] Work Phone: Start: 10-14-2022 End: 10-14-[address] Chente Conn [facility] Work Phone: Start: 09-17-2022 End: 09-17-[address] Chente Conn Work Phone: [facility]-Pulmonary Medicine [facility] Work Phone: Start: 09-14-2022 End: 09-14-[address] Chente Conn Work Phone: [facility] Work Phone: Start: 09-14-2022 End: 09-14-[address] Chente Conn [facility] Work Phone: Start: 08-17-2022 End: 08-17-2022 ambulatory [facility] Work Phone: Start: 08-17-2022 End: 08-17-2022 [facility] Start: 07-22-2022 End: 07-22-2022 [facility] Work [facility]: Start: 06-30-2022 Telephone encounter [facility] Work Phone: Colorectal Surgery Comment on above: [facility] Start: 06-22-2022 End: 06-23-2022 Emergency department patient visit Dr. Chente Conn Work Phone: [facility] Work Phone: Start: 06-22-2022 End: 06-23-2022 Dr. Chente Conn Work Phone: [facility]-Emergency Department Start: 06-15-2022 End: 06-16-2022 ambulatory CHENTE Emil TRAER Facility:[facility] Start: 06-15-2022 End: 06-15-2022 Nursing evaluation of patient and report [facility] Work Phone: Colorectal Surgery Comment on above: Attention to colosto my (HCC) (Primary Dx) Start: 06-12-2022 End: 06-12-2022 Emergency department patient visit Dr. Chente Conn Work Phone: [facility]Emergency Department Start: 06-12-2022 End: 06-12-2022 Dr. Chente Conn Work Phone: [facility] Start: 06-01-2022 End: 06-21-2022 [facility]: Start: 06-01-[address] Chente Conn Work [facility] Start: 06-01-2022 End: 06-21-2022 Dr. Chente Conn Work Phone[facility] Start: 05-06-2022 End: 05-06-2022 ambulatory I MAURICIO LEAVITT Facility:[facility] Start: 05-06-2022 End: 05-06-2022 [facility] I Mauricio Leavitt MD Work Phone: Colorectal Surgery Comment on above: Functional disorder of stomach (Primary Dx) Start: 05-04-2022 End: 05-22-[address] Chente Conn Work Phone: [facility] Work Phone: Start: 05-04-2022 End: 05-22-[address] Chente Conn [facility] Start: 05-04-2022 End: 05-22-2022 Dr. Chente Conn [facility] Start: 04-14-2022 Telephone encounter I Mauricio rothman MD Work Phone: Colorectal Surgery Comment on above: Patient Update; Radha ent Question Patient Update Start: 04-01-2022 Non-patient / Non-visit Dr. Chente Conn Work Phone: [facility] Start: 04-01-2022 Dr. Chente canales Work Phone: [facility] Start: 03-31-2022 Non-patient / Non-visit Dr. Chente Conn Work Phone: [facility] Start: 03-31-2022 Dr. Chente canales Work Phone: [facility] Start: 03-31-2022 Non-patient / Non-visit Dr. Chente Conn Work Phone: [facility] Start: 03-31-2022 Dr. Chente canales Work Phone: [facility] Start: 03-30-2022 Non-patient / Non-visit Dr. Chente Conn Work Phone: [facility] Start: 03-30-2022 Dr. Chente canales Work Phone: [facility] Start: 03-30-2022 Non-patient / Non-visit Dr. Chente Conn Work Phone: [facility] Start: 03-30-2022 Dr. Chente canales Work Phone: [facility] Start: 03-29-2022 Non-patient / Non-visit Dr. Chente Conn Work Phone: [facility] Start: 03-29-2022 Dr. Chente canales Work Phone: [facility] Start: 03-29-2022 Non-patient / Non-visit Dr. Chente Conn Work Phone: [facility] Start: 03-29-2022 Dr. Chente canales Work Phone: [facility] Start: 03-29-2022 Non-patient / Non-visit Dr. Chente Conn Work Phone: [facility] Start: 03-29-2022 Dr. Chente canales Work Phone: [facility] Start: 03-28-2022 Non-patient / Non-visit Dr. Chente Conn Work Phone: [facility] Start: 03-28-2022 Dr. Chente canales Work Phone: [facility] Start: 03-27-2022 Non-patient / Non-visit Dr. Chente Conn Work Phone: [facility] Start: 03-27-2022 Dr. Chente canales Work Phone: [facility] Start: 03-26-2022 Non-patient / Non-visit Dr. Chente Conn Work Phone: [facility] Start: 03-26-2022 Dr. Chente canales Work Phone: [facility] Start: 03-25-2022 Non-patient / Non-visit Dr. Chente Conn Work Phone: [facility] Start: 03-25-2022 Dr. Chente canales Work Phone: [facility] Start: 03-25-2022 Non-patient / Non-visit Dr. Chente Conn Work Phone: [facility] Start: 03-25-2022 Dr. Chente canales Work Phone: [facility] Start: 03-24-2022 Non-patient / Non-visit Dr. Chente Conn Work Phone: [facility] Start: 03-24-2022 End: 04-01-2022 Evaluation and management of inpatient Dr. Chente Conn [facility] Start: 03-24-2022 End: 04-01-2022 Dr. Chente Conn Work Phone: [facility] Start: 03-23-2022 End: 03-24-[address] Chente Conn Work Phone: [facility] Work Phone: Start: 03-23-2022 End: 03-24-[address] Chente Conn [facility] Start: 03-23-[address] Chente Conn [facility] Start: 03-23-2022 End: 03-24-2022 Dr. Chente Conn [facility] Start: 02-24-2022 End: 02-24-2022 Emergency department patient visit Dr. Chente Conn Work Phone: [facility]-Emergency Department Start: 02-24-2022 End: 02-24-2022 Dr. Chente Conn Work Phone: [facility] Start: 02-06-2022 End: 02-21-[address] Chente Conn Work Phone: [facility] Work Phone: Start: 02-06-2022 End: 02-21-[address] Chente Conn [facility] Start: 02-06-2022 End: 02-21-2022 Dr. Chente Conn [facility] Start: 01-06-2022 End: 01-06-[address] Chente Conn Work Phone: [facility] Start: 01-06-2022 End: 01-06-2022 Dr. Chente Conn Work Phone: [facility] Start: 01-05-2022 End: 01-21-[address] Chente Conn Work Phone: [facility] Work Phone: Start: 01-05-2022 End: 01-21-[address] Chente Conn Work Phone: [facility]-Laboratory, Specimen Start: 01-05-2022 End: 01-21-2022 Dr. Chente Conn [facility] Start: 12-19-2021 End: 12-19-[address] Chente Conn [facility] Start: 12-19-2021 End: 12-19-2021 Dr. Chente Conn Work Phone: [facility] Start: 12-08-2021 End: 12-22-[address] Chente Conn Work Phone: [facility] Work Phone: Start: 12-08-2021 End: 12-22-[address] Chente Conn Work Phone: [facility]-Laboratory, Specimen Start: 12-08-2021 End: 12-22-2021 Dr. Chente Conn Work Phone: [facility]-Labor[facility], Specimen Start: 12-05-2021 Non-patient / Non-visit Dr. Chente Conn Work Phone: [facility] Start: 12-05-2021 Dr. Chente canales Work Phone: [facility] Start: 12-04-2021 Non-patient / Non-visit Dr. Chente Conn Work Phone: [facility] Start: 12-04-2021 Dr. Chente canales Work Phone: [facility] Start: 12-03-2021 Non-patient / Non-visit Dr. Chente Conn Work Phone: [facility] Start: 12-03-2021 [facility] Start: 12-03-2021 Non-patient / Non-visit Dr. Chente Conn Work Phone: [facility] Start: 12-03-2021 Dr. Chente canales Work Phone: [facility] Start: 12-02-2021 Non-patient / Non-visit Dr. Chente Conn Work Phone: [facility] Start: 12-02-2021 Dr. Chente canales Work Phone: [facility] Start: 12-01-2021 Non-patient / Non-visit Dr. Chente Conn Work Phone: [facility] Start: 12-01-2021 Dr. Chente canales Work Phone: [facility] Start: 12-01-2021 Non-patient / Non-visit Dr. Chente Conn Work Phone: [facility] Start: 12-01-2021 Dr. Chente canales Work Phone: [facility] Start: 12-01-2021 End: 12-05-2021 Non-patient / Non-visit Dr. Chente Conn Work Phone: [facility] Start: 11-30-2021 End: 12-05-2021 Evaluation and management of inpatient Dr. Chente Conn [facility] Start: 11-30-2021 End: 12-05-2021 Dr. Chente Conn [facility] Start: 11-03-2021 End: 11-21-[address] Chente Conn [facility] Start: 09-11-2021 Non-patient / Non-visit Dr. Chente Conn Work Phone: [facility] Start: 09-11-2021 End: 09-11-[address] Chente [facility] Start: 09-10-2021 End: 09-21-[address] Chente Conn [facility] Start: 09-10-[address] Chente Conn [facility] Start: 08-19-2021 End: 08-19-[address] Chente Conn [facility] Start: 08-12-2021 End: 08-12-[address] Chente Conn [facility] Start: 08-08-2021 End: 08-08-[address] Chente Conn [facility] Start: 07-16-2021 End: 07-16-[address] Chente Conn Work Phone: [facility] Start: 07-11-2021 End: 07-22-[address] Chente Conn [facility] Start: 06-11-2021 End: 06-21-[address] Chente Conn [facility] Start: 05-30-2021 End: 05-30-[address] Chente Conn Work Phone: [facility]-Cat Scan, [facility] Start: 05-20-2021 End: 05-20-[address] Chente Conn [facility] Phone[facility] Start: 05-19-2021 End: 05-19-2021 Emergency department patient visit Dr. Chente Conn Work Phone: [facility]-Emergency Department Start: 05-13-2021 End: 05-22-[address] Chente Conn [facility] Start: 04-28-2021 End: 04-28-[address] Chente Conn [facility] Start: 04-21-2021 End: 04-21-[address] Chente Conn [facility] Start: 04-15-2021 End: 04-15-[address] Chente Conn Work Phone: [facility]-Pulmonary Medicine [facility] Start: 03-25-2021 End: 04-21-[address] Chente Conn [facility] Start: 02-24-2021 End: 03-24-[address] Chente Conn [facility] Start: 01-28-2021 End: 02-21-2021 Discharged Recurring [...] on above: Detection Limit = 3Performed at: [address] [id number] Director: Berry Gonzalez PhD, Phone: [phone] Start: 06-26-2024 Total iron binding capacity measurement [...] growth factor [Moles/volume] in Serum or Plasma [facility] Start: 06-26-2024 Prolactin measurement [facility] Start: 06-26-2024 Testosterone measurement [facility] Start: 04-13-2023 Venous catheter care management [facility] Start: 04-13-2023 End: 04-13-2023 [facility] Start: 04-13-2023 [facility] Start: 03-25-2023 Patient discharge [facility] Start: 03-24-2023 Referral to service [facility] Start: 03-24-2023 CBC W Auto Differential panel - Blood [facility] Start: 03-24-2023 [facility] Start: 03-23-2023 Following clinical pathway protocol [facility] Start: 03-23-2023 Assessment of risk of venous thromboembolism [facility] Start: 03-23-2023 Consultation [facility] Start: 03-23-2023 Consultation for treatment [facility] Start: 03-23-2023 Inhalation therapy procedure [facility] Start: 03-23-2023 Insertion of catheter into peripheral vein [facility] Start: 03-23-2023 Measuring intake and output [facility] Start: 03-23-2023 Oxygen therapy [facility] Start: 03-23-2023 Patient referral to dietitian [facility] Start: 03-23-2023 Providing care according to standard [facility] Start: 03-23-2023 Provision of activity privileges [facility] Start: 03-23-2023 Referral to service [facility] Start: 03-23-2023 Respiratory therapy [facility] Start: 03-23-2023 [facility] Start: 03-23-2023 Verification routine [facility] Start: 03-23-2023 Admission procedure [facility] Start: 03-23-2023 Bacteria identified in Blood by Culture Blood Culture [facility] Start: 03-23-2023 Bacteria identified in Urine by Culture [facility] Start: 03-23-2023 [facility] Start: 03-23-2023 End: 03-23-2023 Blood culture [facility] Start: 03-23-2023 End: 03-23-2023 [facility] Start: 01-16-2023 End: 01-16-2023 Blood culture [facility] Start: 01-16-2023 End: 01-16-2023 [facility] Start: 01-16-2023 Bacteria identified in Blood by Culture Blood Culture [facility] Start: 01-16-2023 Bacteria identified in Urine by Culture Urine Culture [facility] Start: 12-16-2022 Blood chemistry [facility] Start: 12-16-2022 Complete blood count [facility] Start: 12-15-2022 Blood chemistry [facility] Start: 12-15-2022 Complete blood count [facility] Start: 12-14-2022 Blood chemistry [facility] Start: 12-14-2022 Complete blood count [facility] Start: 12-13-2022 Patient discharge [facility] Start: 12-13-2022 Blood chemistry [facility] Start: 12-13-2022 Complete blood count [facility] Start: 12-12-2022 Blood chemistry [facility] Start: 12-12-2022 Complete blood count [facility] Start: 12-12-2022 [facility] Start: 12-11-2022 Referral to service [facility] Start: 12-10-2022 Ambulation without limitation [facility] Start: 12-10-2022 Assessment of risk of venous thromboembolism [facility] Start: 12-10-2022 Inhalation therapy procedure [facility] Start: 12-10-2022 Insertion of catheter into peripheral vein [facility] Start: 12-10-2022 Oxygen therapy [facility] Start: 12-10-2022 Providing care according to standard [facility] Start: 12-10-2022 Referral to service [facility] Start: 12-10-2022 [facility] Start: 12-10-2022 Following clinical pathway protocol [facility] Start: 12-10-2022 Verification routine [facility] Start: 12-10-2022 Admission procedure [facility] Start: 12-10-2022 Hospital admission, emergency, from emergency room, medical nature [facility] Start: 12-10-2022 [facility] Start: 12-10-2022 Patient referral to dietitian [facility] Start: 11-05-2022 Patient discharge [facility] Start: 11-04-2022 [facility] Start: 10-29-2022 [facility] Start: 10-28-2022 Respiratory therapy [facility] Start: 10-27-2022 End: 10-28-2022 [facility] Start: 10-27-2022 Care planning and problem solving actions [facility] Start: 10-27-2022 Respiratory therapy [facility] Start: 10-27-2022 Elevation of head of bed [facility] Start: 10-27-2022 Mouth care [facility] Start: 10-27-2022 Notification of physician [facility] Start: 10-27-2022 Tracheostomy care [facility] Start: 10-27-2022 Airway suction technique [facility] Start: 10-27-2022 Oxygen therapy [facility] Start: 10-27-2022 Assessment of risk of venous thromboembolism [facility] Start: 10-27-2022 Insertion of catheter into peripheral vein [facility] Start: 10-27-2022 Measuring intake and output [facility] Start: 10-27-2022 Physiotherapy of chest [facility] Start: 10-27-2022 Providing care according to standard [facility] Start: 10-27-2022 Vital signs measurements [facility] Start: 10-27-2022 Admission procedure [facility] Start: 10-27-2022 [facility] Start: 06-22-2022 End: 06-22-2022 Blood culture [facility] Start: 06-22-2022 End: 06-22-2022 [facility] Start: 06-12-2022 [facility] Start: 04-01-2022 Venous catheter care management [facility] Start: 04-01-2022 Patient discharge [facility] Start: 03-30-2022 Referral to ear, nose and throat service [facility] Start: 03-29-2022 Referral to general surgeon [facility] Start: 03-28-2022 [facility] Start: 03-27-2022 Care planning and problem solving actions [facility] Start: 03-27-2022 Referral to occupational therapist [facility] Start: 03-26-2022 Consultation [facility] Start: 03-25-2022 Referral to service [facility] Start: 03-25-2022 Airway suction technique [facility] Start: 03-25-2022 Oxygen therapy [facility] Start: 03-25-2022 End: 03-26-2022 [facility] Start: 03-25-2022 Care planning and problem solving actions [facility] Start: 03-25-2022 [facility] Start: 03-24-2022 [facility] Start: 03-24-2022 Following clinical pathway protocol [facility] Start: 03-24-2022 Assessment of risk of venous thromboembolism [facility] Start: 03-24-2022 Catheterization of vein [facility] Start: 03-24-2022 Consultation [facility] Start: 03-24-2022 Inhalation therapy procedure [facility] Start: 03-24-2022 Insertion of catheter into peripheral vein [facility] Start: 03-24-2022 Measuring intake and output [facility] Start: 03-24-2022 Patient referral to [facility] Start: 03-24-2022 Providing care according to standard [facility] Start: 03-24-2022 Referral to service [facility] Start: 03-24-2022 [facility] Start: 03-24-2022 Admission procedure [facility] Start: 03-24-2022 End: 03-24-2022 Blood culture [facility] Start: 03-24-2022 Patient referral to [facility] Start: 02-22-2022 DEPRESSION ASSESSMENT DEPRESSION ASSESSMENT [facility] Start: 12-05-2021 Patient discharge [facility] Start: 12-04-2021 [facility] Start: 12-03-2021 Referral to service [facility] Start: 12-03-2021 Consultation [facility] Start: 12-02-2021 Referral to general surgeon [facility] Start: 12-02-2021 Physiotherapy of chest [facility] Start: 12-01-2021 [facility] Start: 11-30-2021 Following clinical pathway protocol [facility] Start: 11-30-2021 Transfusion of blood product [facility] Start: 11-30-2021 Assessment of risk of venous thromboembolism [facility] Start: 11-30-2021 Consultation [facility] Start: 11-30-2021 Insertion of catheter into peripheral vein [facility] Start: 11-30-2021 Measuring intake and output [facility] Start: 11-30-2021 Oxygen therapy [facility] Start: 11-30-2021 Providing care according to standard [facility] Start: 11-30-2021 Referral to occupational therapist [facility] Start: 11-30-2021 Referral to service [facility] Start: 11-30-2021 [facility] Start: 11-30-2021 Verification routine [facility] Work Phone: Start: 11-30-2021 Admission procedure [facility] Start: 11-30-2021 CT angiography of chest with contrast CTA Chest W/WO Contrast [facility] Work Phone: Start: 11-30-2021 CTA Chest vessels WO and W contrast IV [facility] Work Phone: Start: 11-30-2021 End: 12-01-2021 [facility] Start: 10-23-2021 Influenza vaccination INFLUENZA (#1) [facility] Start: 10-15-2018 Hemoglobin A1c/Hemoglobin.total in Blood HBA1C [facility] Start: 08-27-2017 End: 08-27-2017 Appointment [facility] Work Phone: Start: 08-28-2016 End: 08-28-2016 Appointment Appointment [facility] Work Phone: Start: 08-28-2016 End: 08-28-2016 *BMP *BMP [facility] Work Phone: Start: 08-28-2016 End: 08-28-2016 BNP *Brain Natriuretic Peptide BNP [facility] Work Phone: Start: 08-28-2016 End: 08-28-2016 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 MACHINE 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 AUTOMATIC [facility] Work Phone: Start: 08-28-2016 End: 08-28-2016 Follow Up Appt 1 year Follow Up Appt 1 year [facility] Work Phone: Start: 05-27-2016 End: 05-28-2016 aPTT *PTT-Partial Thromboplastin Time [facility] Work Phone: Start: 05-27-2016 End: 05-28-2016 CBC W Auto Differential panel - Blood *CBC [facility] Work Phone: Start: 05-27-2016 End: 05-28-2016 Coagulation factor induced.INR assay in platelet poor plasma *PT/INR [facility] Work Phone: Start: 01-08-2016 End: 01-08-2016 Bacterica wound culture *Culture and Sensitivity, wound [facility] Work Phone: Start: 04-12-2012 Hepatitis B screening URINE ALBUMIN:CREATININE RATIO [facility] Start: 04-08-2012 Hepatitis B surface antibody level LDL CHOLESTEROL [facility] Start: 04-08-2012 PNEUMOCOCCAL (2 - PCV) PNEUMOCOCCAL (2 - PCV) [facility] ic Start: 2001 Urine microalbumin profile DTAP,TDAP,TD (1 - Tdap) [facility] Start: 02-01-2000 ANNUAL PCP TEAM CHRONIC DISEASE VISIT ANNUAL PCP TEAM CHRONIC DISEASE VISIT [facility] Start: 02-01-2000 HIV SCREENING HIV SCREENING [facility] Start: 02-01-1992 3 comp foot exam completed DIABETIC FOOT EXAM [facility] Start: 02-01-1992 Hepatitis C antibody, confirmatory test DILATED RETINAL EXAM [facility] Start: 1982 COVID-19 VACCINE (#1) COVID-19 VACCINE (#1) [facility] Start: 1982 HEPATITIS B (1 of 3 - 3-dose series) HEPATITIS B (1 of 3 - 3-dose series) [facility] 24 hour urine calciu m output measurement [facility] Alanine aminotransfe rase [Enzymatic activity/volume] in Serum or Plasma [facility] Alanine aminotransfe rase [Enzymatic activity/volume] in Serum or Plasma [facility] Albumin [Mass/volume ] in Serum or Plasma [facility] Albumin [Mass/volume ] in Serum or Plasma [facility] Alkaline phosphatase [Enzymatic activity/volume] in Serum or Plasma [facility] Alkaline phosphatase [Enzymatic activity/volume] in Serum or Plasma [facility] Anion gap measurement [facility] Anion gap measurement [facility] Anion gap measurement [place] [facility] Anion gap measurement [facility] Anion gap measurement [facility] Anion gap measurement [facility] Anion gap measurement [facility] Aspartate aminotrans ferase [Enzymatic activity/volume] in Serum or Plasma [facility] Aspartate aminotrans ferase [Enzymatic activity/volume] in Serum or Plasma [facility] Bacteria identified in Blood by Culture Blood Culture [facility] Bacteria identified in Sputum by Respiratory culture [facility] Work Phone: Bacteria identified in Sputum by Respiratory culture [facility] Bilirubin, total measurement [facility] Bilirubin, total measurement [facility] BUN/Creatinine ratio [facility] BUN/Creatinine ratio [facility] BUN/Creatinine ratio [facility] BUN/Creatinine ratio [facility] BUN/Creatinine ratio [facility] BUN/Creatinine ratio [facility] BUN/Creatinine ratio [facility] Calcium [Mass/volume ] in Serum or Plasma [facility] Calcium [Mass/volume ] in Serum or Plasma [facility] Calcium [Mass/volume ] in Serum or Plasma [facility] Calcium [Mass/volume ] in Serum or Plasma [facility] Calcium [Mass/volume ] in Serum or Plasma [facility] Calcium [Mass/volume ] in Serum or Plasma [facility] Calcium [Mass/volume ] in Serum or Plasma [facility] Carbon dioxide, tota l [Moles/volume] in Serum or Plasma [facility] Carbon dioxide, tota l [Moles/volume] in Serum or Plasma [facility] Carbon dioxide, tota l [Moles/volume] in Serum or Plasma [facility] Carbon dioxide, tota l [Moles/volume] in Serum or Plasma [facility] Carbon dioxide, tota l [Moles/volume] in Serum or Plasma [facility] Carbon dioxide, tota l [Moles/volume] in Serum or Plasma [facility] Carbon dioxide, tota l [Moles/volume] in Serum or Plasma [facility] Chloride [Moles/volu me] in Serum or Plasma [facility] Chloride [Moles/volu me] in Serum or Plasma [facility] Chloride [Moles/volu me] in Serum or Plasma [facility] Chloride [Moles/volu me] in Serum or Plasma [facility] Chloride [Moles/volu me] in Serum or Plasma [facility] Chloride [Moles/volu me] in Serum or Plasma [facility] Chloride [Moles/volu me] in Serum or Plasma [facility] Creatinine [Moles/vo lume] in Serum or Plasma [facility] Creatinine [Moles/vo lume] in Serum or Plasma [facility] Creatinine [Moles/vo lume] in Serum or Plasma [facility] Creatinine [Moles/vo lume] in Serum or Plasma [facility] Creatinine [Moles/vo lume] in Serum or Plasma [facility] Creatinine [Moles/vo lume] in Serum or Plasma [facility] Creatinine [Moles/vo lume] in Serum or Plasma [facility] Erythrocyte mean corpuscular volume determination [facility] Glucose [Mass/volume ] in Serum or Plasma [facility] Glucose [Mass/volume ] in Serum or Plasma [facility] Glucose [Mass/volume ] in Serum or Plasma [facility] Glucose [Mass/volume ] in Serum or Plasma [facility] Glucose [Mass/volume ] in Serum or Plasma [facility] Glucose [Mass/volume ] in Serum or Plasma [facility] Glucose [Mass/volume ] in Serum or Plasma [facility] Hematocrit [Volume Fraction] of Blood [facility] Hematocrit [Volume Fraction] of Blood [facility] Hematocrit [Volume Fraction] of Blood [facility] Hematocrit [Volume Fraction] of Blood [facility] Hematocrit [Volume Fraction] of Blood [facility] Hematocrit [Volume Fraction] of Blood [facility] Hematocrit [Volume Fraction] of Blood [facility] Hemoglobin [Mass/vol ume] in Blood [facility] Hemoglobin [Mass/vol ume] in Blood [facility] Hemoglobin [Mass/vol ume] in Blood [facility] Hemoglobin [Mass/vol ume] in Blood [facility] Hemoglobin [Mass/vol ume] in Blood [facility] Hemoglobin [Mass/vol ume] in Blood [facility] Hemoglobin [Mass/vol ume] in Blood [facility] Insulin-like growth factor [Moles/volume] in Serum or Plasma [facility] Lactic acid measurement [facility] Leukocytes [#/volume ] in Blood [facility] Leukocytes [#/volume ] in Blood [facility] Leukocytes [#/volume ] in Blood [facility] Leukocytes [#/volume ] in Blood [facility] Leukocytes [#/volume ] in Blood [facility] Leukocytes [#/volume ] in Blood [facility] Leukocytes [#/volume ] in Blood [facility] Mean corpuscular hem oglobin concentration determination [facility] Mean corpuscular hem oglobin concentration determination [facility] Mean corpuscular hem oglobin concentration determination [facility] Mean corpuscular hem oglobin concentration determination [facility] Mean corpuscular hem oglobin concentration determination [facility] Mean corpuscular hem oglobin concentration determination [facility] Mean corpuscular hem oglobin concentration determination [facility] Mean corpuscular hem oglobin determination [facility] Mean corpuscular hem oglobin determination [facility] Mean corpuscular hem oglobin determination [facility] Mean corpuscular hem oglobin determination [facility] Mean corpuscular hem oglobin determination [facility] Mean corpuscular hem oglobin determination [facility] Mean corpuscular hem oglobin determination [facility] Measurement of renal function [facility] Measurement of renal function [facility] Measurement of renal function [facility] Measurement of renal function [facility] Measurement of renal function [facility] Measurement of renal function [facility] Measurement of renal function [facility] Microscopic observat ion [Identifier] in Unspecified specimen by Gram stain Gram Stain [facility] Work Phone: Neutrophil count [facility] Neutrophil count [facility] Neutrophil percent differential count [facility] Neutrophil percent differential count [facility] Patient Education [facility] Work Phone: Patient referral [facility] Work Phone: Platelets [#/volume] in Blood [facility] Platelets [#/volume] in Blood [facility] Platelets [#/volume] in Blood [facility] Platelets [#/volume] in Blood [facility] Platelets [#/volume] in Blood [facility] Platelets [#/volume] in Blood [facility] Platelets [#/volume] in Blood [facility] Potassium [Moles/vol ume] in Serum or Plasma [facility] Potassium [Moles/vol ume] in Serum or Plasma [facility] Potassium [Moles/vol ume] in Serum or Plasma [facility] Potassium [Moles/vol ume] in Serum or Plasma [facility] Potassium [Moles/vol ume] in Serum or Plasma [facility] Potassium [Moles/vol ume] in Serum or Plasma [facility] Potassium [Moles/vol ume] in Serum or Plasma [facility] Prolactin measurement [facility] Red blood cell count [facility] Red blood cell count [facility] Red blood cell count [facility] Red blood cell count [facility] Red blood cell count [facility] Red blood cell count [facility] Red blood cell count [facility] Red cell distributio n width determination [facility] Red cell distributio n width determination [facility] Red cell distributio n width determination [facility] Red cell distributio n width determination [facility] Red cell distributio n width determination [facility] Red cell distributio n width determination [facility] Red cell distributio n width determination [facility] Respiratory Culture Respiratory Culture [facility] Work Phone: Respiratory pathogen s DNA and RNA 12b panel - Unspecified specimen by YAYO with probe detection [facility] Serum testosterone measurement [facility] Sodium [Moles/volume ] in Serum or Plasma [facility] Sodium [Moles/volume ] in Serum or Plasma [facility] Sodium [Moles/volume ] in Serum or Plasma [facility] Sodium [Moles/volume ] in Serum or Plasma [facility] Sodium [Moles/volume ] in Serum or Plasma [facility] Sodium [Moles/volume ] in Serum or Plasma [facility] Sodium [Moles/volume ] in Serum or Plasma [facility] Testosterone Free [Mass/volume] in Serum or Plasma [facility] Testosterone measurement [facility] Total protein measurement [facility] Total protein measurement [facility] Urea nitrogen [Mass/ volume] in Serum or Plasma [facility] Urea nitrogen [Mass/ volume] in Serum or Plasma [facility] Urea nitrogen [Mass/ volume] in Serum or Plasma [facility] Urea nitrogen [Mass/ volume] in Serum or Plasma [facility] Urea nitrogen [Mass/ volume] in Serum or Plasma [facility] Urea nitrogen [Mass/ volume] in Serum or Plasma [facility] Urea nitrogen [Mass/ volume] in Serum or Plasma [facility] Work Phone: [facility] Immunizations Immunization Date Immunization Notes Care Provider [facility] 01-09-2021 influenza, injectabl e, quadrivalent, preservative free Dr. Chente Conn Work Phone: [facility] 01-09-2021 influenza, seasonal, injectable Dr. Chente Conn Work Phone: [facility] 04-03-2020 Covid (Moderna) Dr. Chente cooper Work Phone: [facility] 02-06-[address] Chente Conn Work Phone: [facility] 12-11-[address] Chente Conn Work Phone: [facility] 01-20-[address] Chente Conn Work Phone: [facility] 02-19-2017 influenza, injectabl e, quadrivalent, preservative free Dr. Chente Conn Work Phone: [facility] 02-19-2017 influenza, seasonal, injectable Dr. Chente Conn Work Phone: [facility] 12-23-2015 influenza, injectabl e, quadrivalent, preservative free Dr. Chente Conn Work Phone: [facility] 12-23-2015 influenza, seasonal, injectable Dr. Chente Conn Work Phone: [facility] 11-08-2014 influenza, injectabl e, quadrivalent, preservative free LELIA Leavitt MD Work Phone: [facility] 01-15-2014 influenza, injectabl e, quadrivalent, preservative free Dr. Chente Conn Work Phone: [facility] 01-15-2014 influenza, seasonal, injectable Dr. Chente Conn Work Phone: [facility] 12-14-2012 influenza virus vacc ine, unspecified formulation LELIA Leavitt MD Work Phone: [facility] 11-22-[address] Darwin Conn Work Phone: [facility] Work Phone: 11-22-2012 pneumococcal vaccine , unspecified formulation Dr. Chente Conn Work Phone: [facility] 04-08-2011 influenza virus vacc ine, unspecified formulation LELIA Leavitt MD Work Phone: [facility] 04-08-2011 pneumococcal polysaccharide vaccine, 23 valent LELIA Leavitt MD Work Phone: [facility] Payers Date Payer Category Payer Unknown [id number] 2023 Self-pay [id number] 2020 Medicare [id number] 2020 Medicare MEDICARE MEDICAR E A AND B [id number] 2020-Present [phone] [place] [address] Medicare [id number] [facility] MEDICAID [id number] 2018-Present [phone] [address] [place] [address] Medicaid [id number] 2018 Unknown SAVANNAH MORSE PPO [id number] 2018-Present [phone] [address] [place] [address] PPO [id number] 2016 Medicaid [id number] 2016 Unknown [id number] Unknown [id number] 2.16.840.1.864427.3.579.2.462 Unknown [id number] 2.16.840.1.831951.3.579.2.462 Unknown [id number] 2.16.840.1.995997.3.579.2.462 Unknown [id number] 2.16.840.1.909494.3.579.2.462 Unknown [id number] 2.16.840.1.235632.3.579.2.462 Unknown [id number] 2.16.840.1.684357.3.579.2.462 Unknown [id number] 2.16.840.1.775198.3.579.2.462 Unknown [id number] 2.16.840.1.299713.3.579.2.462 Unknown [id number] 2.16.840.1.418531.3.579.2.462 Unknown [id number] 2.16.840.1.225681.3.579.2.462 Unknown [id number] 2.16.840.1.837214.3.579.2.462 Unknown [id number] 2.16.840.1.100866.3.579.2.462 Unknown [id number] 2.16.840.1.520873.3.579.2.462 Unknown [id number] 2.16.840.1.309170.3.579.2.462 Unknown [id number] 2.16.840.1.168505.3.579.2.462 Unknown [id number] 2.16.840.1.041999.3.579.2.462 Unknown [id number] 2.16.840.1.836733.3.579.2.462 Unknown [id number] 2.16.840.1.696054.3.579.2.462 Unknown [id number] 2.16.840.1.602605.3.579.2.462 Unknown [id number] 2.16.840.1.837860.3.579.2.462 Unknown [id number] 2.16840.1.138034.3.579.2.462 Unknown [id number] 2.16.840.1.786482.3.579.2.462 Unknown [id number] 2.16840.1.671647.3.579.2.462 Unknown [id number] 2.16.840.1.707386.3.579.2.462 Unknown [id number] 2.16.840.1.114877.3.579.2.462 Unknown [id number] 2.16.840.1.196206.3.579.2.462 Unknown [id number] 2.16.840.1.847881.3.579.2.462 Unknown [id number] 2.16.840.1.608381.3.579.2.462 Unknown [id number] 2.16.840.1.937395.3.579.2.462 Unknown [id number] 2.16.840.1.799493.3.579.2.462 Unknown [id number] 2.16.840.1.749346.3.579.2.462 Unknown [id number] 2.16.840.1.039819.3.579.2.462 Unknown [id number] 2.16.840.1.910969.3.579.2.462 Unknown [id number] 2.16.840.1.166483.3.579.2.462 Unknown [id number] 2.16.840.1.568270.3.579.2.462 Unknown [id number] 2.16.840.1.370014.3.579.2.462 Unknown [id number] 2.16.840.1.967739.3.579.2.462 Unknown [id number] 2.16.840.1.773397.3.579.2.462 Unknown [id number] 2.16.840.1.344541.3.579.2.462 Unknown [id number] 2.16840.1.406163.3.579.2.462 Unknown [id number] 2.16840.1.350290.3.579.2.462 Unknown [id number] 2.16840.1.369449.3.579.2.462 Unknown [id number] 2.16840.1.075092.3.579.2.462 Social History Date Type Detail Facility Start: 05-19-2021 End: 01-16-2023 Tobacco smoking status NHIS Unknown if ever smoked [facility] Start: 04-25-2020 None [facility] Start: 04-25-2020 With Family [facility] Start: 07-08-2019 Non-smoker [facility] Start: 1980 Sex Assigned At Male [facility] Start: 2024 Tobacco smoking stat us TXIS Never smoked tobacco [facility] Start: 12-27-2019 Alcohol intake Not Asked [facility] Start: 1980 Sex Assigned At Not on file [facility] Start: 05-17-2024 End: 05-23-2024 Sex Male (finding) [facility] Medical Equipment Procedure Code Equipment Code Equipment Origin al Text Equipment Identifier Dates Catheter Ascenda 4fr .5mm Silicone 114cm 86cm Intrathecal 2 Piece Connector - [id number] Start: 04-05-2018 Pump Int Thcl 40 ml Snchr 2 Drg - [id number] Start: 03-08-2012 Pump Synchromed Ii 87.5in Titanium Silicone 26in Intrathecal [place] - [id number] Start: 04-05-2018 Tube Shiley 10.8 mm 6.4mm 6 76mm Tracheostomy Cuff Low Pressure Fenestrate - [id number] Start: 04-20-2018 Goals Date Patient Goal Desired Activity /State Functional Status Date Assessment Result Facility 03-25-2023 Functional status [facility] Work Phone: 03-25-2023 Functional status Fair [facility] Work Phone: 12-13-2022 Functional status [facility] Work Phone: 12-11-2022 Functional status [facility] Work Phone: 11-05-2022 Functional status Chair [facility] Work Phone: 04-01-2022 Functional status [facility] Work Phone: 03-31-2022 Functional status None [facility] Work Phone: 12-05-2021 Functional status With Assist of 2 [facility] Work Phone: 12-04-2021 Functional status [facility] Work Phone: 12-03-2021 Functional status None [facility] Work Phone: Mental Status Date Assessment Result Facility 03-25-2023 Cognitive function Passive [facility] Work Phone: 03-24-2023 Cognitive function Voice/Name [facility] Work Phone: 12-13-2022 Cognitive function Voice/Name [facility] Work Phone: 12-13-2022 Cognitive function Dependent [facility] Work Phone: 12-11-2022 Cognitive function Voice/Name [facility] Work Phone: 11-05-2022 Cognitive function Voice/Name [facility] Work Phone: 06-12-2022 Cognitive function Awake;Alert;Appropriat e [facility] Work Phone: 04-01-2022 Cognitive function Voice/Name [facility] Work Phone: 03-31-2022 Cognitive function Demonstrates ability to follow instructions/comprehend [facility] Work Phone: 12-05-2021 Cognitive function Voice/Name [facility] Work Phone: 12-03-2021 Cognitive function Remote Impaired [facility] Work Phone: Clinical Notes 07-15-2018 to 07-27-2024 Note Date & Type Note Facility 07-27-2024 Radiology Diagnostic study note [facility] Imaging Services [address] [place] [address] Knee 1 or 2 Views MR#: [id number] Acct: [id number] Name: KRISS MICHAEL Rep #: [id number] : 1980 M 44 From: Manuel Bernabe MD PCP: Dr. Chente Conn MD Status: RE G CLI Study:Knee 1 or 2 Views Date of Exam: Exam# [id number] Ordering Dr: Gabrielle Quinones MD PROCEDURE: KNEE [...] due to the nonstandard projections. Reading Location: [id number] CC: Dr. Chente Conn MD; Dr. Roddy Quinones MD ~ Key Worker: Signed [facility] Work Phone: 06-15-2024 Evaluation note Diagnosis Onset Date Resolution Osteoporosis chronic June 15, 2024 1:47pm [facility] Work Phone: 1(817) 418-936402-11-2025 Evaluation note* Diagnosis Onset Date Resolution Status Admit Date Chronic respiratory failure chronic April 04, 2024 1:01pm [facility] Work Phone: 1(833) 191-161202-11-2025 Evaluation note* Diagnosis Onset Date Resolution Status Admit Date Chronic respiratory failure chronic April 04, 2024 1:01pm Osteoporosis chronic June 15, 2024 1:47pm [facility] Work Phone: 1(621) 163-741302-20-2024 Discharge summary Author Anthony Russell [facility] April 13, 2023 4:08pm Note Date/Time April 13, 2023 12:41pm [facility] Medical Records Department [address] [place] [address] Emergency Department Summary 04/13/23 MR#: [id number] Acct: [id number] Name: KRISS MICHAEL Rep #:[id number] : 1980 43 From: Anthony Russell MD [...] Prior similar symptoms: Yes Recent Illness/Hospitalization: Yes [facility] Medical History Acute dyspnea Anemia in chronic [...] 44.2 L Lymph % (Auto) 43.5 H [place] % (Auto) 7.8 Eos % (Auto) 3.7 [...] your Primary Care Provider. Call [facility] ([phone]) or report to the closest Emergency Room. Call 911 if necessary. 04/13/23 2056 <Electronically signed by Anthony Russell MD> Cosigner Signature (if applicable): CC: Dr. Chente Conn MD ~ Signed [facility] Work Phone: 1(880) 808-434202-01-2024 Discharge summary Author [facility]acho [facility] March 25, 2023 10:43am Note Date/Time March 25, 2023 1 0:40am [facility] Medical Records Department [address] [place] [address] Instructions for Home/Discharge Instructions 03/25/23 1035 MR#: [id number] Acct: [id number] Name: KRISS MICHAEL Rep #:[id number] : 1980 43 From: Camacho Gonzalez DO [...] MD; Dr. Cari Cavazos MD ~ Signed [facility] Work Phone: 1(306) 625-827302-01-2024 Progress note Author Jacek Monsalve [facility] March 25, 2023 9:12am Note Date/Time March 25, 2023 7 :06am [facility] Medical Records Department [address] [place] [address] Progress Note - Manager Ambulatory 03/25/2304 MR#: [id number] Acct: [id number] Name: KRISS MICHAEL Rep #:[id number] : 1980 43 From: Jacek Monsalve MD [...] neurologic status Charges/Coding Visit Charges Inpatient E&M: 54415 Subs Hosp L2 03/25/23 0912 <Electronically signed by Jacek Monsalve MD> Cosigner Signature (if applicable): CC: ~ Signed [facility] Work Phone: 1(280) 507-802601-31-2024 Progress note Author Camacho Gonzalez [facility] March 24, 2023 6:18pm Note Date/Time March 24, 2023 6 :15pm [facility] Medical Records Department [address] [place] [address] Progress Note - Hospitalist 03/24/23 1809 MR#: [id number] Acct: [id number] Name: KRISS MICHAEL Rep #:[id number] : 1980 43 From: Camacho Gonzalez DO [...] % (Auto) 62.2, Lymph % (Auto) 25.6, [place] % (Auto) 8.9, Eos % (Auto) 2.9, [...] 0.30, AST 14 L, ALT 25, Alkaline Mkdkcoowffd256 H, Total Protein 7.5, Albumin 3.1 L, [...] 35 minutes Charges/Coding Visit Charges Inpatient E&M: 78992 Subs Hosp L2 03/24/238 <Electronically signed by Camacho Gonzalez DO> Cosigner Signature (if applicable): CC: ~ Signed [facility] Work Phone: 1(827) 747-327301-31-2024 Consult note Author Jacek Monsalve [facility] March 24, 2023 2:48pm Note Date/Time March 24, 2023 8 :48am [facility] Medical Records Department [address] [place] [address] Consultation - Manager Ambulatory 03/24/23805 MR#: [id number] Acct: [id number] Name: KRISS MICHAEL Rep #:[id number] : 1980 43 From: Jacek Monsalve MD [...] from the outpatient office, who presents to [facility] on 03/23/2023 secondary to recurrent episodes [...] and actively tracking people around the room. [facility] Medical History Acute dyspnea Anemia in chronic [...] (Auto) 70.6 H, Lymph % (Auto) 21.7, [place] % (Auto) 5.1, Eos % (Auto) 2.0, [...] % (Auto) 62.2, Lymph % (Auto) 25.6, [place] % (Auto) 8.9, Eos % (Auto) 2.9, [...] 0.30, AST 14 L, ALT 25, Alkaline Saorsykabiz402 H, Total Protein 7.5, Albumin 3.1 L, Globulin 4.4 H, Albumin/Globulin Ratio 0.7 L Micro: Microbiology 03/23/23 12:55 Mucosa - Nose Respiratory Panel (PCR) - Final Imaging Radiology Impression Chest X-Ray 03/23/23 13:22 IMPRESSION: Limited inspiratory effort due to patient''s condition. There has been essentially no change prior study. Electronically Signed: Matti Greer MD at 13:40 EST Reading Location ID and State: [facility] / [place] , Service support , Charges/Coding Visit Charges Inpatient E&M: 39437 Init Hosp L2 03/24/23 1448 <Electronically signed [...] Huggins MD; Dr. Cari Cavazos MD~ Signed [facility] Work Phone: 1(158) 801-331001-30-2024 Discharge summary Author Siddharth De La Rosa [facility] March 23, 2023 5:09pm Note Date/Time March 23, 2023 1 2:22pm [facility] Medical Records Department [address] [place] [address] Emergency Department Summary 03/23/23 MR#: [id number] Acct: [id number] Name: KRISS MICHAEL Rep #:[id number] : 1980 43 From: Siddharth De La [...] has not been around any sick persons. [facility] <REYNA Scott - Last Filed: 03/23/23 16:27> [facility] Medical History Acute dyspnea Anemia in chronic [...] Oxygen Delivery Method Mechanical Ventilator Mechanical Ventilator [facility] <Dominic Méndez EXECUTIVE RECRUITER-C - Last Filed: 03/23/23 16:27> [facility] Lab Data Labs: Laboratory Results - last 24 hr 03/23/23 03/23/23 12:35 13:23 WBC 13.0 H RBC 5.07 Hgb 13.1 Hct 42.2 MCV 83.2 MCH 25.8 L MCHC 31.0 L RDW Std Deviation 45.1 H RDW Coeff of Emilee 14.8 H Plt Count 229 MPV 10.1 Immature Gran % (Auto) 0.400 Neut % (Auto) 70.6 H Lymph % (Auto) 21.7 [place] % (Auto) 5.1 Eos % (Auto) 2.0 [...] Rosa MD - Last Filed: 03/23/23 17:09> [facility] Lab Data Labs: Laboratory Results - last 24 hr 03/23/23 03/23/23 12:35 13:23 WBC 13.0 H RBC 5.07 Hgb 13.1 Hct 42.2 MCV 83.2 MCH 25.8 L MCHC 31.0 L RDW Std Deviation 45.1 H RDW Coeff of Emilee 14.8 H Plt Count 229 MPV 10.1 Immature Gran % (Auto) 0.400 Neut % (Auto) 70.6 H Lymph % (Auto) 21.7 [place] % (Auto) 5.1 Eos % (Auto) 2.0 [...] min), Including time spent:, Discussing w/Patient &/or Family/Manager Inpatient, Discussing w/Consultants, Arranging Admission or Transfer and Performing Direct Patient Care at Bedside Discharge Plan Dx/Rx/DC Orders Clinical Impression: Acute hypoxemic respiratory failure, Aspiration pneumonia, Cerebral palsy, Acidosis, lactic Disposition Disposition: Acute Care Hospital [facility] Discharge Date/Time: 03/23/23 16:46 What to do if you have Problems For any increased pain, shortness of breath, bleeding, nausea or vomiting, chest pain, or any unexpected problems, contact your Primary Care Provider. Call [facility] ([phone]) or report to the closest Emergency Room. Call 911 if necessary. 03/23/23 1700 <Electronically signed by Siddharth De La Rosa MD> Cosigner Signature (if applicable): 03/23/23 1627 <Electronically signed by Dominic HEBERTC> CC: Dr. Chente Conn MD ~ Signed [facility] Work Phone: 1(489) 856-969701-30-2024 History and physical note Author Lucia Dillard [facility] March 23, 2023 4:44pm Note Date/Time March 23, 2023 4 :37pm [facility] Medical Records Department [address] [place] [address] H&P Exam - Hospitalist 03/23/23 1633 MR#: [id number] Acct: [id number] Name: KRISS MICHAEL Rep #:[id number] : 1980 43 From: Lucia Dillard MD [...] seizure disorder, and GERD who presented to [facility] 03/23/2023 due to concern for aspiration [...] is presently not in any acute distress. [facility] Medical History Acute dyspnea Anemia in chronic [...] (Auto) 70.6 H, Lymph % (Auto) 21.7, [place] % (Auto) 5.1, Eos % (Auto) 2.0, [...] essentially no change prior study. Electronically Signed: Matit Greer MD at 13:40 EST , Assessment [...] documentation, 56Minutes Charges/Coding Visit Charges Inpatient E&M: 29129 Init Hosp L2 03/23/23 1644 <Electronically signed by Lucia Dillard MD> Cosigner Signature (if applicable): CC: Dr. Chente Conn MD; Dr. Lucia Dillard MD~ Signed [facility] Work Phone: 1(268) 415-540511-25-2023 Discharge summary Author Dalton Lester [facility] January 16, 2023 10:58pm Note Date/Time January 16, 2023 7:42pm [facility] Medical Records Department [address] [place] [address] Emergency Department Summary 01/16/23 MR#: [id number] Acct: [id number] Name: KRISS MICHAEL Rep #:[id number] : 1980 42 From: Amena OAKES PCP: [...] surgeon did not want to operate again. [facility] <CHAMP Merlos - Last Filed: 01/16/23 20:59> [facility] Medical History (Updated 01/16/23 @ 20:59 by [...] <CHAMP Merlos - Last Filed: 01/16/23 20:59> [facility] Narrative Medical decision making narrative: History [...] 75.2 H Lymph % (Auto) 16.8 L [place] % (Auto) 6.5 Eos % (Auto) 1.1 [...] Clarity Clear Urine pH 6.0 Ur Specific [place] 1.025 Urine Protein 30 H Urine Glucose [...] workup. This patient was seen with a PA/EXECUTIVE RECRUITER Individually assessed they patient including history and physical. I have reviewed everything on the chart that is availableand agree with the documentation provided by the PA/EXECUTIVE RECRUITER including discussion about the assessment, treatment plan, [...] 75.2 H Lymph % (Auto) 16.8 L [place] % (Auto) 6.5 Eos % (Auto) 1.1 [...] Clarity Clear Urine pH 6.0 Ur Specific [place] 1.025 Urine Protein 30 H Urine Glucose [...] your Primary Care Provider. Call [facility] ([phone]) or report to the closest Emergency Room. Call 911 if necessary. 01/16/232058 <Electronically signed by Amena OAKES> Cosigner Signature (if applicable): 01/16/232257 <Electronically signed by Dalton Lester DO> CC: Dr. Chente Conn MD ~ Signed [facility] Work Phone: 1(438) 778-339710-22-2023 Discharge summary Author [facility] December 13, 2022 6:10pm Note Date/Time December 13, 2022 1 2:47pm [facility] Medical Records Department [address] [place] [address] Discharge Summary 12/13/22 1247 MR#: [id number] Acct: [id number] Name: KRISS MICHAEL Rep #:[id number] : 1980 42 From: Donte adam DO PCP: Dr. Chente Conn MD Status:AD M IN Location: [place] [id number] Providers Date of Admission: 12/10/22 Date [...] history of seizure disorder who presented to [facility] ED on 12/10/2022 with several episodes [...] Self Care Charges/Coding Visit Charges Inpatient E&M: 65720 Disch Hosp >30min 12/13/221809 <Electronically signed by Donte Abebe DO> Cosigner Signature (if applicable): CC: Dr. Donte Abebe DO; Dr. Chente Conn MD~ Signed [facility] Work Phone: 1(107) 965-891410-22-2023 Discharge summary Author Donte Abebe [facility] December 13, 2022 12:47pm Note Date/Time December 13, 2022 1 2:43pm [facility] Medical Records Department [address] [place] [address] Instructions for Home/Discharge Instructions 12/13/22 1242 MR#: [id number] Acct: [id number] Name: KRISS MICHAEL Rep #:[id number] : 1980 42 From: Donte adam DO [...] CC: Dr. Chente Conn MD ~ Signed [facility] Work Phone: 1(189) 910-757710-22-2023 Progress note Author Stefan Gregory [facility] December 13, 2022 11:49am Note Date/Time December 13, 2022 1 1:48am [facility] Medical Records Department [address] [place] [address] Progress Note - GI 12/13/22 1147 MR#: [id number] Acct: [id number] Name: KRISS MICHAEL Rep #:[id number] : 1980 42 From: Stefan Gregory DO PCP: Dr. Chente Conn MD Status:AD M IN Location: [place] [address] Subjective Subjective No issues with his tube [...] current management. Charges/Coding Visit Charges Inpatient E&M: 59492 Subs Hosp L3 12/13/22 1149 <Electronically signed by Stefan Gregory DO> Cosigner Signature (if applicable): CC: ~ Signed [facility] Work Phone: 1(246) 325-220510-21-2023 Progress note Author Stefan Gregory [facility] December 12, 2022 5:05pm Note Date/Time December 12, 2022 5 :02pm [facility] Medical Records Department [address] [place] [address] Progress Note - GI 12/12/22 1702 MR#: [id number] Acct: [id number] Name: KRISS MICHAEL Rep #:[id number] : 1980 42 From: Stefan Gregory DO PCP: Dr. Chente Conn MD Status:AD M IN Location: [place] [address] Subjective Subjective Patient underwent an upper endoscopy [...] seems stable. Charges/Coding Visit Charges Inpatient E&M: 20571 Subs Hosp L3 12/12/22 1705 <Electronically signed by Stefan Gregory DO> Cosigner Signature (if applicable): CC: ~ Signed [facility] Work Phone: 1(540) 805-442510-21-2023 Progress note Author Donte Abebe [facility] December 12, 2022 2:28pm Note Date/Time December 12, 2022 2 :27pm [facility] Medical Records Department [address] [place] [address] Progress Note - Hospitalist 12/12/22 1423 MR#: [id number] Acct: [id number] Name: KRISS MICHAEL Rep #:[id number] : 1980 42 From: Donte adam DO PCP: Dr. Chente Conn MD Status:AD M IN [facility] Reason for Visit Reason for Visit: [...] history of seizure disorder who presented to [facility] ED on 12/10/2022 with several episodes [...] 35 minutes. Charges/Coding Visit Charges Inpatient E&M: 89712 Subs Hosp L2 12/12/22 1428 <Electronically signed by Donte Abebe DO> Cosigner Signature (if applicable): CC: ~ Signed [facility] Work Phone: 1(911) 422-124510-20-2023 Progress note Author Donte [facility] December 11, 2022 5:31pm Note Date/Time December 11, 2022 5 :31pm [facility] Medical Records Department [address] [place] [address] Progress Note - Hospitalist 12/11/22 1723 MR#: [id number] Acct: [id number] Name: KRISS MICHAEL Rep #:[id number] : 1980 42 From: Donte adam DO PCP: Dr. Chente Conn MD Status:AD M IN Location: [place] [id number]- [id number] Reason for Visit Reason for Visit: [...] history of seizure disorder who presented to [facility] ED on 12/10/2022 with several episodes [...] 35 minutes. Charges/Coding Visit Charges Inpatient E&M: 37935 Subs Hosp L2 12/11/22 7401 <Electronically signed by Donte Abebe DO> Cosigner Signature (if applicable): CC: ~ Signed [facility] Work Phone: 1(343) 955-748010-20-2023 Procedure [facility] 12-11-2022 Procedure [facility]10-19-2023 History and physical note Author Donte [facility] December 10, 2022 5:27pm Note Date/Time December 10, 2022 1 2:21pm [facility] Medical Records Department [address] [place] [address] H&P Exam - Hospitalist 12/10/22 1217 MR#: [id number] Acct: [id number] Name: KRISS MICHAEL Rep #:[id number] : 1980 42 From: Donte adam DO PCP: Dr. Chente Conn MD Status:AD M IN Location: [facility] [id number]- [id number] HPI - General General Date of Admission: 12/10/22 HPI Narrative KRISS MICHAEL, is a 42 M who presents [facility] Medical History (Updated 12/10/22 @ 15:05 by [...] (Auto) 72.2 H, Lymph % (Auto) 19.2, [place] % (Auto) 5.9, Eos % (Auto) 2.1, [...] history of seizure disorder who presented to [facility] ED on 12/10/2022 with several episodes [...] 55 minutes. Charges/Coding Visit Charges Inpatient E&M: 41440 Init Hosp L2 12/10/22 1727 <Electronically signed by Donte Abebe DO> Cosigner Signature (if applicable): CC: Dr. Donte Abebe DO; Dr. Chente Conn MD~ Signed [facility] Work Phone: 1(161) 189-838710-19-2023 Discharge summary Author Miky Rahman [facility] December 10, 2022 4:28pm Note Date/Time December 10, 2022 1 0:15am [facility] Medical Records Department [address] [place] [address] Emergency Department Summary 12/10/22 MR#: [id number] Acct: [id number] Name: KRISS MICHAEL Rep #:[id number] : 1980 42 From: Miky Chiang PCP: Dr. Chente Conn MD Status:AD M IN Location: [place] [address] HPI HPI - GI History of Present [...] the summer with PCP. Specialists are at [facility] with surgery. However mother states has [...] gastroenterology, hospitalist This note was generated with [employer] dictation software. It may contain incorrectwords, spelling, [...] (Auto) 72.2 H Lymph % (Auto) 19.2 [place] % (Auto) 5.9 Eos % (Auto) 2.1 [...] palsy, Hematemesis Disposition Disposition: Acute Care Hospital [facility] Discharge Date/Time: 12/10/22 14:37 What to do if you have Problems For any increased pain, shortness of breath, bleeding, nausea or vomiting, chestpain, or any unexpected problems, contact your Primary Care Provider. Call [facility] ([phone]) or report to the closest Emergency Room. Call 911 if necessary. 12/10/22 6516 <Electronically signed by Miky Chiang> Cosigner Signature (if applicable): CC: Dr. Chente Conn MD ~ Signed [facility] Work Phone: 1(788) 439-471809-14-2023 Discharge summary Author Vanessa Roberts [facility] November 05, 2022 11:44am Note Date/Time November 05, 2022 11:38am [facility] Medical Records Department [address] [place] [address] Discharge Summary 11/05/22 1136 MR#: [id number] Acct: [id number] Name: KRISS MICHAEL Rep #:[id number] : 1980 42 From: Vanessa Roberts DO [...] father had surgery for esophageal cancer at [facility]. Overall he is remained incredibly stable [...] Self Care Charges/Coding Visit Charges Inpatient E&M: 66519 Disch Hosp 11/05/22 1141 <Electronically signed by Vanessa Roberts DO> Cosigner Signature (if applicable): CC: Dr. Chente Conn MD; Dr. Vanessa Roberts DO~ Signed [facility] Work Phone: 1(807) 123-437709-13-2023 Progress note Author Vanessa Roberts [facility] November 04, 2022 2:07pm Note Date/Time November 04, 2022 2:07pm [facility] Medical Records Department [address] [facility] [place] [address] Progress Note - Hospitalist 11/04/22 1405 MR#: [id number] Acct: [id number] Name: KRISS MICHAEL Rep #:[id number] : 1980 42 From: Vanessa Roberts DO [...] home tomorrow. Charges/Coding Visit Charges Inpatient E&M: 94987 Subs Hosp L1 11/04/22 1406 <Electronically signed by Vanessa Roberts DO> Cosigner Signature (if applicable): CC: ~ Signed [facility] Work Phone: 1(348) 218-208109-12-2023 Progress note Author Vanessa Roberts [facility] November 03, 2022 1:40pm Note Date/Time November 03, 2022 1:40pm [facility] Medical Records Department [address] [place] [address] Progress Note - Hospitalist 11/03/22 1338 MR#: [id number] Acct: [id number] Name: KRISS MICHAEL Rep #:[id number] : 1980 42 From: Vanessa Roberts DO [...] from surgery Charges/Coding Visit Charges Inpatient E&M: 03354 Subs Hosp L1 11/03/22 1340 <Electronically signed by Vanessa Roberts DO> Cosigner Signature (if applicable): CC: ~ Signed [facility] Work Phone: 1(873) 516-852509-11-2023 Progress note Author Vanessa Roberts [facility] November 02, 2022 5:28pm Note Date/Time November 02, 2022 8:02am [facility] Medical Records Department [address] [place] [address] Progress Note - Hospitalist 11/02/22 0755 MR#: [id number] Acct: [id number] Name: KRISS MICHAEL Rep #:[id number] : 1980 42 From: Vanessa Roberts DO [...] is having surgeryfor esophageal cancer chair at [facility]. Overall he is remained incredibly stable [...] -Full code Charges/Coding Visit Charges Inpatient E&M: 43028 Subs Hosp L1 11/02/22 1728 <Electronically signed by Vanessa Roberts DO> Cosigner Signature (if applicable): CC: ~ Signed [facility] Work Phone: 1(376) 340-485009-10-2023 Progress note Author Michael Posadas [facility] November 01, 2022 9:04am Note Date/Time November 01, 2022 7:28am [facility] Medical Records Department [address] [place] [address] Progress Note - Hospitalist 11/01/22726 MR#: [id number] Acct: [id number] Name: KRISS MICHAEL Rep #:[id number] : 1980 42 From: Michael Posadas MD [...] documentation, 35Minutes Charges/Coding Visit Charges Inpatient E&M: 76158 Subs Hosp L2 11/01/22 0904 <Electronically signed by Micahel Posadas MD> Cosigner Signature (if applicable): CC: ~ Signed [facility] Work Phone: 1(241) 906-141009-09-2023 Progress note Author Michael Posadas [facility] October 31, 2022 10:50am Note Date/Time October 31, 2022 7:35am [facility] Medical Records Department [address] [place] [address] Progress Note - Hospitalist 10/31/22 0732 MR#: [id number] Acct: [id number] Name: KRISS MICHAEL Rep #:[id number] : 1980 42 From: Michael Posadas MD [...] documentation, 35Minutes Charges/Coding Visit Charges Inpatient E&M: 29808 Subs Hosp L2 10/31/22 1050 <Electronically signed by Michael Posadas MD> Cosigner Signature (if applicable): CC: ~ Signed [facility] Work Phone: 1(641) 573-547809-08-2023 Progress note Author [facility] October 30, 2022 10:37am Note Date/Time October 30, 2022 10:37am [facility] Medical Records Department [address] [facility] [place] [address] Progress Note 10/30/22 1030 MR#: [id number] Acct: [id number] Name: KRISS MICHAEL Rep #:[id number] : 1980 42 From: Cindy Alexandre MD [...] respite care. Charges/Coding Visit Charges Inpatient E&M: 67573 Subs Hosp L2 10/30/22 1037 <Electronically signed by Cindy Alexandre MD> Cindy Alexandre MD Cosigner Signature (if applicable): CC: ~ Signed [facility] Work Phone: 1(563) 623-660009-07-2023 Progress note Author Barry Young [facility] October 29, 2022 8:31am Note Date/Time October 29, 2022 8:31am [facility] Medical Records Department [address] [place] [address] Progress Note - Hospitalist 10/29/22827 MR#: [id number] Acct: [id number] Name: KRISS MICHAEL Rep #:[id number] : 1980 42 From: Barry stover MD [...] home instructions Charges/Coding Visit Charges Inpatient E&M: 25674 Subs Hosp L2 10/29/22 0831 <Electronically signed by Barry Young MD> Cosigner Signature (if applicable): CC: ~ Signed [facility] Work Phone: 1(246) 832-329309-06-2023 History and physical note Author [facility] October 28, 2022 7:30pm Note Date/Time October 27, 2022 2:40pm [facility] Medical Records Department [address] [place] [address] History & Physical Exam 10/27/22 1432 MR#: [id number] Acct: [id number] Name: KRISS MICHAEL Rep #:[id number] : 1980 42 From: Cindy Alexandre MD [...] father have surgery for esophageal cancer at [facility]. [facility] Medical History (Updated 10/28/22 @ 08:39 by [...] respite care. Charges/Coding Visit Charges Inpatient E&M: 09651 Init Hosp L2 10/28/221929 <Electronically signed by Cindy Alexandre MD> Cosigner Signature (if applicable): CC: Dr. Chente Conn MD; Dr. Cindy Alexandre MD~ Signed [facility] Work Phone: 1(722) 974-152809-06-2023 Progress note Author Barry Young [facility] October 28, 2022 8:40am Note Date/Time October 28, 2022 8:40am [facility] Medical Records Department [address] [place] [address] Progress Note - Hospitalist 10/28/2235 MR#: [id number] Acct: [id number] Name: KRISS MICHAEL Rep #:[id number] : 1980 42 From: Barry stover MD [...] home instructions Charges/Coding Visit Charges Inpatient E&M: 05808 Subs Hosp L2 10/28/22 0840 <Electronically signed by Barry Young MD> Cosigner Signature (if applicable): CC: ~ Signed [facility] Work Phone: 1(486) 917-237405-09-2023 Miscellaneous Notes* Telephone Encounter - Chichi Fowler RN - 06/30/2022 4:42 PM EDT [facility] nursing returned patient's mother Yue message [...] e-mail. Mother will give order numbers to [facility]. Also recommended can apply stomahesive powder on mucosa. Advised maybe irritation from mucosa rubbing on pouch d/t prolapse vs the stool. Mom agreeable. Time spent: 30 minutes Chichi Fowler RN, BSN, CWOCN * Telephone Encounter - Amber Monreal RN - 06/30/2022 3:53 PM EDT [phone] Pt's mother called. She would like to discuss pt's stoma prolapse. [facility] De La Rosa [facility] June 22, 2022 8:24pm Note Date/Time June 22, 2022 6:47pm [facility] Medical Records Department [address] [place] [address] Emergency Department Summary 06/22/22 MR#: [id number] Acct: [id number] Name: KRISS MICHAEL Rep #:[id number] : 1980 42 From: Siddharth De La [...] not measuring this specifically obviously. No hematuria. [facility] Medical History Acute dyspnea Anemia in chronic [...] % (Auto) 67.2 Lymph % (Auto) 21.5 [place] % (Auto) 8.5 Eos % (Auto) 2.4 [...] Color Urine Clarity Urine pH Ur Specific [place] Urine Protein Urine Glucose (UA) Urine Ketones Urine Occult Blood Urine Nitrite Urine Bilirubin Urine Urobilinogen Ur Leukocyte Esterase Urine RBC Urine WBC Ur Squamous Epith Cells Urine Bacteria Urine Mucus 06/22/22 06/22/22 19:10 19:20 WBC RBC Hgb Hct MCV MCH MCHC RDW Std Deviation RDW Coeff of Emilee Plt Count MPV Immature Gran % (Auto) Neut % (Auto) Lymph % (Auto) [place] % (Auto) Eos % (Auto) Baso % [...] Sl Cldy Urine pH 8.0 Ur Specific [place] 1.010 Urine Protein 30 H Urine Glucose [...] 19:23 EDT Reading Location ID and State: [address] [place] [address] Tel , Service support , Rhythm Strip [...] your Primary Care Provider. Call [facility] ([phone]) or report to the closest Emergency Room. Call 911 if necessary. 06/22/222023 <Electronically signed by Siddharth De La Rosa MD> Cosigner Signature (if applicable): CC: Dr. Chente Conn MD ~ Signed [facility] Work Phone: 1(734) 777-165304-24-2023 NoteHNO ID: [id number] Author: Cassie Cui RN Service: ? Author [...] Requested samples from [employer] for Coloplast SenSura [place] MAXI Drainable pouch with soft outlet #39019. Order form provided. Also discussed use of [...] 1 hour 15 minutes Cassie BAL, RN, [facility] History of Present illness Narrative* Cassie [...] Uriah MAXI Drainable pouch with soft outlet #10019. Order form provided. Also discussed use of [...] effluent Current pouching system: Jazzmine Cohesive StomaWrap, Mcdougal New Image flat flange with tape collar(cutting [...] RN - 06/15/2022 3:33 PM EDT The [address] [address] Patient: Kriss Michael Patient Address: [address] [place] [address] [place] [address] Preferred Gender: male Date of : 1980 Type of Stoma: End Descending Colostomy Diagnosis: Constipation K59.0 OSTOMY SUPPLY ORDER FORM One Piece Ostomy Pouch Item Type: Coloplast Post-op pouch with a window #73350 30 day use - 2 Boxes Coloplast SenSura Uriah MAXI Drainable Pouch with Soft Outlet Transparent Cut-to-fit 4 #12347 30 dayuse - 1 Box Tonia Hollihesive #7701 30 day use - 2 Boxes Procare Abdominal binder (62-74) #[id number] 30 day use - 2 Binders OR Procare Abdominal binder (45-62) #[id number] 30 day use - 2 Binders Refills: 11 Attending Physician: Dr. Leavitt For immediate authorization, please contact the physician s office. [facility] Nurse: VALERIANO Peters, CWOCN SIGNATURE: Cassie Cui RN PATIENT NAME: Kriss Michael DATE: June 15, 2022 TIME: 3:34 PM CONTACT #: [phone] documented in this encounterHarrison [facility]04-24-2023 NoteHNO ID: [id number] Author: Cassie Cui RN Service: ? Author Type: Registered Nurse Type: Progress Notes Filed: 06/30/2022 4:35 PM Note Text: The [address] [address] Patient: Kriss Michael Patient Address: [address] [place] [address] [place] [address] Preferred Gender: male Date of : 1980 Type of Stoma: End Descending Colostomy Diagnosis: Constipation K59.0 OSTOMY SUPPLY ORDER FORM Coloplast SenSura Uriah MAXI Drainable Pouch with Soft Outlet Transparent Cut-to-fit 4 #42745 30 day use - 1 Box Coloplast Bed Drainage Bag #94977 30 day use-2 bags Bricklayer #7817 30 day use 1 Xavi Luna #7700 30 day use - 2 Boxes Procare Abdominal binder (62-74) #[id number] 30 day use - 2 Binders OR Procare Abdominal binder (45-62) #[id number] 30 day use - 2 Binders Refills: 11 Attending Physician: Dr. Leavitt For immediate authorization, please contact the physician?s office. [facility] Nurse: VALERIANO Peters, CWOCN Addendum by: VALERIANO Virgen, CWOCN SIGNATURE: Cassie Cui RN PATIENT NAME: Kriss Michael DATE: June 15, 2022 TIME: 3:34 PM CONTACT #: [phone] Munoz [facility] June 12, 2022 12:31pm Note Date/Time June 12, 2022 10: 51am [facility] Medical Records Department [address] [place] [address] Emergency Department Summary 06/12/22 MR#: [id number] Acct: [id number] Name: KRISS MICHAEL Rep #:[id number] : 1980 42 From: Naveen Hidalgo PCP: [...] history of recent mission for aspiration pneumonia. [facility] Medical History Acute dyspnea Anemia in [...] % (Auto) 50.9 Lymph % (Auto) 35.9 [place] % (Auto) 8.1 Eos % (Auto) 3.3 [...] your Primary Care Provider. Call [facility] ([phone]) or report to the closest Emergency Room. Call 911 if necessary. 06/12/22 1231 <Electronically signed by Naveen Munoz DO> Cosigner Signature (if applicable): CC: Dr. Chente Conn MD ~ Signed [facility] Work Phone: 1(323) 470-562903-15-2023 NoteHNO ID: [id number] Author: Yola Leavitt MD Service: ? Author [...] 2014. He has not been seen at [facility] since 2019 when he came for [...] visit. Either the patient or their legal primary care sales representative has been informed of the risks and benefits of -- and alternatives to -- treatment through a remote evaluation and consents to proceed with the evaluation remotely. Risk of morbidity, mortality and/or complications of treatment plan: moderate I spent a total of 36 minutes on the date of the service which included preparing to see the patient and [id number] patient care.[facility]03-[facility] History of Present illness Narrative* I [...] 2014. He has not been seen at [facility] since 2019 when he came for [...] included preparing to see the patient and [id number] patient care. documented in this encounterH[facility]02-21-2023 Miscellaneous Notes* Telephone Encounter - Geetha [...] see what could be done about this,. [phone] Ashly (mom) documented in this encounterHarrison [facility] Hospital02-21-2023 Miscellaneous Notes* Telephone Encounter - Ebony Boateng - 04/14/2022 1:19 PM EST The patients mom stated that she can get into mychart. documented in this encounterHarrison [facility] Hospital20[address] De La Torre [facility] March 24, 2022 8:03pm Note Date/Time March 24, 2022 5 :37pm [facility] Medical Records Department [address] [place] [address] Emergency Department Summary 03/24/22 MR#: [id number] Acct: [id number] Name: KRISS MICHAEL Rep #:[id number] : 1980 42 From: Dario De La [...] similar symptoms: Yes Recent Illness/Hospitalization: Yes [facility] Medical History Acute dyspnea Anemia in chronic [...] 79.9 H Lymph % (Auto) 13.1 L [place] % (Auto) 5.3 Eos % (Auto) 1.3 [...] results, treatment for sepsis), Discussing w/Patient &/or Family/Manager Inpatient, Discussing w/Consultants, Arranging Admission or Transfer and [...] MD [Primary Care Provider] - Disposition Disposition: [facility] What to do if you have Problems For any increased pain, shortness of breath, bleeding, nausea or vomiting, chestpain, or any unexpected problems, contact your Primary Care Provider. Call [facility] ([phone]) or report to the closest Emergency Room. Call 911 if necessary. 03/24/222002 <Electronically signed by Dario De La Torre MD> Cosigner Signature (if applicable): CC: Dr. Chente Conn MD ~ Signed [facility] Work Phone: 1(629) 815-325305-24-2019 History of Past illness Narrative* Problem Noted [...] latter does not explain HGB drop. - Trimble removed - BP stable - MAP goal [...] to goal rate - finishing reglan 10mg v2uside for 24 hours today - monitor ostomy [...] with toxic vanc levels , vanc held, APARAN -required intubation again due to desaturation, transferred [...] of this encounter (statuses as of 04/14/2022) [facility] History of Past illness Narrative* [...] to goal rate - finishing reglan 10mg [id number] for 24 hours today - monitor ostomy [...] of this encounter (statuses as of 04/14/2022) [facility] History of Past illness Narrative* [...] latter does not explain HGB drop. - Trimble removed - BP stable - MAP goal [...] to goal rate - finishing reglan 10mg g8ksrke for 24 hours today - monitor ostomy [...] of this encounter (statuses as of 05/08/2022) [facility] History of Past illness Narrative* [...] to goal rate - finishing reglan 10mg k1yrdby for 24 hours today - monitor ostomy [...] of this encounter (statuses as of 06/16/2022) [facility] History of Past illness Narrative* [...] to goal rate - finishing reglan 10mg d3ugjzn for 24 hours today - monitor ostomy [...] of this encounter (statuses as of 07/01/2022) [facility]* Diagnosis Onset Date Resolution Status Chronic respiratory failure chronic [facility] Work Phone: evaluation note* Diagnosis Onset Date Resolution Status Chronic respiratory failure chronic Nonrheumatic mitral valve prolapse [facility] Work Phone: Evaluation note* Diagnosis Onset Date Resolution Status Nonrheumatic mitral valve prolapse [facility] Work Phone: Evaluation note* Diagnosis Onset Date Resolution Status Nonrheumatic mitral valve prolapse chronic Chronic respiratory failure [facility] Work Phone: Evaluation note* Diagnosis Onset Date Resolution Status Chronic respiratory failure chronic Acute dyspnea acute Cyanosis acute Hypoxia acute Cerebral palsy [facility] Work Phone: Evaluation note* Diagnosis Onset Date Resolution Status Chronic respiratory failure chronic Acute dyspnea acute Colostomy prolapse acute Cyanosis acute Hypoxia acute Pseudomonas pneumonia acute Cerebral palsy chronic Chronic respiratory failure [facility] Work Phone: Evaluation note* Diagnosis Onset Date Resolution Status Acute dyspnea acute Colostomy prolapse acute Cyanosis acute Hypoxia acute Pseudomonas pneumonia acute Cerebral palsy chronic Chronic respiratory failure chronic Pseudomonas pneumonia acute Chronic respiratory failure [facility] Work Phone: Evaluation note* Diagnosis Onset Date Resolution Status Cerebral palsy chronic Chronic respiratory failure chronic Acute dyspnea resolved Cyanosis resolved Hypoxia resolved Chronic respiratory failure chronic Chronic respiratory failure [facility] Work Phone: Evaluation note* Diagnosis Onset Date Resolution Status Cerebral palsy chronic Chronic respiratory failure chronic Acute dyspnea resolved Cyanosis resolved Hypoxia resolved Chronic respiratory failure chronic Chronic respiratory failure chronic Acidosis, lactic acute Aspiration into airway acute Hyperpyrexia acute Sepsis acute Sinus tachycardia acute Cerebral palsy chronic Chronic respiratory failure with hypoxia chronic [facility] Work Phone: Evaluation note* Diagnosis Functional disorder of stomach- Primary Unspecified functional disorder of stomach documented in this encounter [facility]* Diagnosis Onset Date Resolution Status Acidosis, lactic resolved Aspiration into airway resol alan Hyperpyrexia resolved Sepsis resolved Sinus tachycardia resolved [facility] Work Phone: Evaluation note* Diagnosis 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 Attention to colostomy documented in this encounter [facility] HospitalEvaluation noteNo assessment information availableWBrown [facility] Work Phone: Evaluation note* Diagnosis Onset Date Resolution Status Chronic respiratory failure with hypoxia chronic [facility] Work Phone: Evaluation note* Diagnosis Onset Date Resolution Status Cerebral palsy acute GI bleed resolved Hematemesis acute [facility] Work Phone: Evaluation note* Diagnosis Onset Date Resolution Status GI bleed resolved Hematemesis resolved [facility] Work Phone: Evaluation note* Diagnosis Onset Date Resolution Status Cerebral palsy chronic GI bleed resolved Hematemesis resolved Cerebral palsy chronic Chronic respiratory failure chronic [facility] Work Phone: Evaluation note* Diagnosis Onset Date Resolution Status Cerebral palsy chronic GI bleed resolved Hematemesis resolved Cerebral palsy chronic Chronic respiratory failure chronic Acidosis, lactic acute Acute hypoxemic respiratory failure acute Aspiration pneumonia acute Cerebral palsy chronic [facility] Work Phone: Evaluation note* Diagnosis Onset Date Resolution Status Cerebral palsy chronic GI bleed resolved Hematemesis resolved Cerebral palsy chronic Chronic respiratory failure chronic Acidosis, lactic acute Acute hypoxemic respiratory failure acute Aspiration pneumonia acute Emesis, persistent acute Cerebral palsy chronic Chronic respiratory failure chronic [facility] Work Phone: Evaluation note* Diagnosis Onset Date Resolution Status Cerebral palsy chronic Chronic respiratory failure chronic Cerebral palsy chronic Chronic respiratory failure chronic Acidosis, lactic resolved Acute hypoxemic respiratory failure resolved Emesis, persistent resolved [facility] Work Phone: History and physical note Author Lucia Dillard [facility] March 23, 2023 4:44pm Note Date/Time March 23, 2023 4 :37pm [facility] Medical Records Department [address] [place] [address] H&P Exam - Hospitalist 03/23/23 1633 MR#: [id number] Acct: [id number] Name: KRISS MICHAEL Rep #:[id number] : 1980 43 From: Lucia Dillard MD [...] seizure disorder, and GERD who presented to [facility] 03/23/2023 due to concern for aspiration [...] is presently not in any acute distress. [facility] Medical History Acute dyspnea Anemia in chronic [...] (Auto) 70.6 H, Lymph % (Auto) 21.7, [place] % (Auto) 5.1, Eos % (Auto) 2.0, [...] documentation, 56Minutes Charges/Coding Visit Charges Inpatient E&M: 61930 Init Hosp L2 03/23/23 1644 <Electronically signed by Lucia Dillard MD> Cosigner Signature (if applicable): CC: Dr. Chente Conn MD; Dr. Lucia Dillard MD~ Signed [facility] Work Phone: Hospital Discharge instructions Additional Instructions Please return if you notice any changes to the patient's oxygenation. Please follow with his primary care physicians as well as specialist for outpatient evaluation and further treatment.[facility] Work Phone: Hospital Discharge instructions Additional Instructions Continue your current medications as prescribed. Ativan as needed for anxiety. Follow-up with your doctor as needed or return if worse. His labs today and CAT scan were unremarkable. There is no signs of any blood clots. No signs of any pneumonia. [facility] Work Phone: Reason for referral (narrative)No reason for referral information availableWooOhio State [facility] Work Phone: Chief Complaint and Reason [...] No May 19, 2021 9:15pm Power of Manufacturing Job Titles No May 19 9:15pm Advance Directive Response Recorded Date/ Time Advance Directives No March 12, 2016 10:51am Living Will No November 30 11:11am Power of Manufacturing Job Titles No November 30 11:11am Advance Directive Response Recorded Date/ Time Advance Directives No March 12, 2016 10:51am Living Will No November 30 3:13pm Power of Manufacturing Job Titles No November 30 3:13pm Advance Directive Response Recorded Date/ Time Advance Directives No March 12, 2016 9:51am Living Will No November 30 2:13pm Power of Manufacturing Job Titles No November 30 2:13pm Advance Directive Response Recorded Date/ Time Name of Medical Power of Manufacturing Job Titles PT MOM February 24, 2022 4:16pm Advance Directives No March 12, 2016 9:51am Living Will No February 24 4:16pm Power of Manufacturing Job Titles Yes February 24, 2 023 4:16pm Advance Directive Response Recorded Date/ Time Name of Medical Power of Manufacturing Job Titles PT MOM February 24, 2022 4:16pm Name of Medical Power of Manufacturing Job Titles parents Miky Pelaez March 24, 2022 5:11pm Advance Directives No March 12, 2016 9:51am Living Will No March 24 5:11pm Power of Manufacturing Job Titles Yes March 24, 2022 5:11pm Advance Directive Response Recorded Date/ Time Name of Medical Power of Manufacturing Job Titles PT MOM February 24, 2022 4:16pm Name of Medical Power of Manufacturing Job Titles parents Miky ivera nd Benigno March 24, 2022 5:11pm Advance Directives No March 12, 2016 9:51am Living Will No March 24 9:35pm Power of Manufacturing Job Titles No March 24, 2022 9:35pm Latest Code [...] Date/ Time Name of Medical Power of Manufacturing Job Titles PT MOM February 24, 2022 5:16pm Name of Medical Power of Manufacturing Job Titles parents Miky Pelaez March 24, 2022 6:11pm Advance Directives No March 12, 2016 10:51am Living Will No March 24 10:35pm Power of Manufacturing Job Titles No March 24, 2022 10:35pm Advance Directive Response Recorded Date/ Time Name of Medical Power of Manufacturing Job Titles PT MOM February 24, 2022 5:16pm Name of Medical Power of Manufacturing Job Titles parents Miky Pelaez March 24, 2022 6:11pm Advance Directives No March 12, 2016 10:51am Living Will No June 12, 2022 10:42am Power of Manufacturing Job Titles No June 12 10:42am Advance Directive Response Recorded Date/ Time Name of Medical Power of Manufacturing Job Titles PT MOM February 24, 2022 5:16pm Name of Medical Power of Manufacturing Job Titles parents Miky Pelaez March 24, 2022 6:11pm Name of Medical Power of Manufacturing Job Titles MOTHER June 22, 2022 6:28pm Advance Directives No March 12, 2016 10:51am Living Will No June 22, 2022 6: 28pm Power of Manufacturing Job Titles Yes June 22, 2022 6:28pm Advance Directive Response Recorded Date/ Time Name of Medical Power of Manufacturing Job Titles MOTHER June 22, 2022 6:28pm Advance Directives No March 12, 2016 10:51am Living Will No June 22, 2022 6: 28pm Power of Manufacturing Job Titles Yes June 22, 2022 6:28pm Advance Directive Response Recorded Date/ Time Name of Medical Power of Manufacturing Job Titles Matteo & Benigno S prosty October 27, 2022 5:26pm Advance Directives No March 12, 2016 10:51am Living Will No October 27, 023 5:26pm Power of Manufacturing Job Titles Yes October 27, 2022 5:26pm Advance Directive Response Recorded Date/ Time Name of Medical Power of Manufacturing Job Titles Matteo & Benigno S prosty October 27, 2022 5:26pm Advance Directives No March 12, 2016 10:51am Living Will No December 10 9:56am Power of Manufacturing Job Titles No December 10, 2022 9:56am Advance Directive Response Recorded Date/ Time Name of Medical Power of Manufacturing Job Titles Matteo & Benigno S prosty October 27, 2022 5:26pm Advance Directives No March 12, 2016 10:51am Living Will No December 10 2:53pm Power of Manufacturing Job Titles No December 10, 2022 2:53pm Advance Directive Response Recorded Date/ Time Advance Directives No March 12, 2016 9:51am Living Will No January 16, 023 7:25pm Power of Manufacturing Job Titles No January 16, 2023 7:25pm Name of Medical Power of Manufacturing Job Titles Matteo & Benigno S prosty October 27, 2022 4:26pm Advance Directive Response Recorded Date/ Time Name of Medical Power of Manufacturing Job Titles Mother March 23, 2023 12:16pm Advance Directives No March 12, 2016 9:51am Living Will No Kiah 30th, 20 24 12:16pm Power of Manufacturing Job Titles Yes March 23, 2023 12:16pm Advance Directive Response Recorded Date/ Time Name of Medical Power of Manufacturing Job Titles Mother March 23, 2023 5:05pm Advance Directives No March 12, 2016 9:51am Living Will No March 23 5:05pm Power of Manufacturing Job Titles Yes March 23, 2023 5:05pm Advance Directive Response Recorded Date/ Time Name of Medical Power of Manufacturing Job Titles Mother March 23, 2023 5:05pm Name of Medical Power of Manufacturing Job Titles parents April 13, 2023 12:23pm Advance Directives No March 12, 2016 9:51am Living Will Yes April 13 12:23pm Power of Manufacturing Job Titles Yes April 13, 2023 12:23pm Advance Directive Response Recorded Date/ Time Name of Medical Power of Manufacturing Job Titles Mother March 23, 2023 6:05pm Name of Medical Power of Manufacturing Job Titles parents April 13, 2023 1:23pm Advance Directives No March 12, 2016 10:51am Living Will Yes April 13 1:23pm Power of Manufacturing Job Titles Yes April 13, 2023 1:23pm Advance Directive Response Recorded Date/ Time Living Will Yes April 13 1:23pm Do you have a Healthcare Power of Manufacturing Job Titles? Yes April 13, 2023 1:23pm Living Will No January 30 5:12pm Do you have a Healthcare Power of Manufacturing Job Titles? No 2024 5:12pm Advance Directives No March 12, 2016 10:51am Advance Directive Response Recorded Date/ Time Living Will Yes April 13 1:23pm Do you have a Healthcare Power of Manufacturing Job Titles? Yes April 13, 2023 1:23pm Advance Directives [...] Provider, Referr ing Provider Active Valarie Kee EXECUTIVE RECRUITER, EXECUTIVE RECRUITER-C Attending Provider Active Team Status: Active Member [...] Tolentino MD Other Provider Active Valarie Kee EXECUTIVE RECRUITER, EXECUTIVE RECRUITER-C Other Provider Active Dr. Lucia Dillrad MD Other Provider Active Dr. Fiona Echavarria [...] Tolentino MD Other Provider Active Valarie Kee EXECUTIVE RECRUITER, EXECUTIVE RECRUITER-C Other Provider Active Dr. Lucia Dillard MD [...] Tolentino MD Other Provider Active Valarie Kee EXECUTIVE RECRUITER, EXECUTIVE RECRUITER-C Other Provider Active Dr. Lucia Dillard MD [...] Tolentino MD Other Provider Active Valarie Kee EXECUTIVE RECRUITER, EXECUTIVE RECRUITER-C Other Provider Active Dr. Lucia Dillard MD [...] MD Other Provider Active Valarie Kee NP, EXECUTIVE RECRUITER-C Other Provider Active Dr. Lucia Dillard MD [...] MD Other Provider Active Valarie Kee NP, EXECUTIVE RECRUITER-C Other Provider Active Dr. Lucia Dillard MD [...] Tolentino MD Other Provider Active Valarie Kee EXECUTIVE RECRUITER, EXECUTIVE RECRUITER-C Other Provider Active Dr. Lucia Dillard MD [...] Tolentino MD Other Provider Active Valarie Kee EXECUTIVE RECRUITER, EXECUTIVE RECRUITER-C Other Provider Active Dr. Fiona Echavarria MD [...] Tolentino MD Other Provider Active Valarie Kee EXECUTIVE RECRUITER, EXECUTIVE RECRUITER-C Other Provider Active Dr. Fiona Echavarria MD [...] Tolentino MD Other Provider Active Valarie Kee EXECUTIVE RECRUITER, EXECUTIVE RECRUITER-C Other Provider Active Team Status: Inactive Member [...] Tolentino MD Other Provider Active Valarie Kee EXECUTIVE RECRUITER, EXECUTIVE RECRUITER-C Other Provider Active Supervisor Varnish Relationship Specialty Start Date End Date Chente Perkins MD [address] [facility] [address] PCP - General 06/03/00 [facility] 05/19/18 Supervisor Varnish Relationship Specialty Start Date End Date Chente Perkins MD [address] [place] [address] PCP - General 06/03/00 [facility] 05/19/18 Supervisor Varnish Relationship Specialty Start Date End Date Chente Perkins MD [address] [place] [address] PCP - General 06/03/00 [facility] 05/19/18 Team Status: Active Member [...] Tolentino MD Other Provider Active Valarie Kee EXECUTIVE RECRUITER, EXECUTIVE RECRUITER-C Other Provider Active Dr. Lucia Dillard MD [...] Tolentino MD Other Provider Active Valarie Kee EXECUTIVE RECRUITER, EXECUTIVE RECRUITER-C Other Provider Active Dr. Lucia Dillard MD Other Provider Active Team Status: Active Member Role Status Dates Dr. Chente Conn MD Primary Care Provider Active Dr. Dairo De La Torre MD Emergency Provider Active Dr. Fiona Echavarria MD Admit Provider, Other Provider Act jeanette Dr. Jacek Monsalve MD Other Provider Active Dr. Yovanny Moreira , Other Provider Active Dr. Armando Plaza MD Other Provider Active Dr. John Tolentino MD Other Provider Active Valarie Kee EXECUTIVE RECRUITER, EXECUTIVE RECRUITER-C Other Provider Active Dr. Lucia Dillard MD [...] Tolentino MD Other Provider Active Valarie Kee EXECUTIVE RECRUITER, EXECUTIVE RECRUITER-C Other Provider Active Dr. Lucia Dillard MD [...] Tolentino MD Other Provider Active Valarie Kee EXECUTIVE RECRUITER, EXECUTIVE RECRUITER-C Other Provider Active Dr. Lucia Dillard MD [...] Tolentino MD Other Provider Active Valarie Kee EXECUTIVE RECRUITER, EXECUTIVE RECRUITER-C Other Provider Active Dr. Lucia Dillard MD [...] MD Other Provider Active Valarie Kee NP, EXECUTIVE RECRUITER-C Other Provider Active Dr. Lucia Dillard MD [...] MD Other Provider Active Valarie Kee NP, EXECUTIVE RECRUITER-C Other Provider Active Dr. Lucia Dillard MD [...] MD Other Provider Active Valarie Kee NP, EXECUTIVE RECRUITER-C Other Provider Active Dr. Roberto Hathaway MD [...] Tolentino MD Other Provider Active Valarie Kee EXECUTIVE RECRUITER, EXECUTIVE RECRUITER-C Other Provider Active Dr. Roberto Hathaway MD [...] MD Other Provider Active Valarie Kee NP, EXECUTIVE RECRUITER-C Other Provider Active Dr. Roberto Hathaway MD [...] Tolentino MD Other Provider Active Valarie Kee EXECUTIVE RECRUITER, EXECUTIVE RECRUITER-C Other Provider Active Dr. Roberto Hathaway MD [...] DO Referring Provider, Emergency P zulema Active Supervisor Varnish Relationship Specialty Start Date End Date Chente Perkins MD [address] [place] [id number] PCP - General 06/03/00 [facility] 05/19/18 Team Status: Inactive Member Role [...] Torey Huffman MD Primary Care Provider, Attending [facility] Active Team Status: Active Member Role Status [...] 2024 End: April 04, 2024 Amber Dior EXECUTIVE RECRUITER-C Attending Provider Active Start: April 04, 2024 [...] Active Member Role Status Dates Dr. Chente Cnon MD Primary Care Provider Active Start: May 01, 2024 Dr. Chente Conn MD Attending Provider Active Start: May 01, 2024 Dr. Chente Conn MD Referring Provider Active Start: May 01, 2024 Team Status: Inactive Member Role Status Dates Dr. Chente Conn MD Primary Care Provider Active Start: May 09, 2024 End: May 09, 2024 Valarie Kee EXECUTIVE RECRUITER, EXECUTIVE RECRUITER-C Attending Provider Active Start: May 09, 2024 End: May 09, 2024 Valarie Kee EXECUTIVE RECRUITER, EXECUTIVE RECRUITER-C Referring Provider Active Start: May 09, 2024 [...] 2024 End: May 09, 2024 Valarie Kee EXECUTIVE RECRUITER, EXECUTIVE RECRUITER-C Attending Provider Active Start: May 09, 2024 End: May 09, 2024 Valarie Kee EXECUTIVE RECRUITER, EXECUTIVE RECRUITER-C Referring Provider Active Start: May 09, 2024 [...] Inactive Member Role/Relationship Status Dates Dr. Chente oCnn MD Primary Care Provider Active Start: June [...] 2024 End: May 09, 2024 Valarie Kee EXECUTIVE RECRUITER, EXECUTIVE RECRUITER-C Attending Provider Active Start: May 09, 2024 End: May 09, 2024 Valarie Kee EXECUTIVE RECRUITER, EXECUTIVE RECRUITER-C Referring Provider Active Start: May 09, 2024 [...] or prosecute any alcohol or drug abuse patient.[facility] the event this information is protected by the Federal Confidentiality of Alcohol and Drug Abuse Patient Records regulations: The Federal rules restrict any use of the information to criminally investigate or prosecute any alcohol or drug abuse patient.[facility] the event this information is protected by the Federal Confidentiality of Alcohol and Drug Abuse Patient Records regulations: The Federal rules restrict any use of the information to criminally investigate or prosecute any alcohol or drug abuse patient.[facility] the event this information is protected by the Federal Confidentiality of Alcohol and Drug Abuse Patient Records regulations: The Federal rules restrict any use of the information to criminally investigate or prosecute any alcohol or drug abuse patient.[facility] the event this information is protected by the Federal Confidentiality of Alcohol and Drug Abuse Patient Records regulations: The Federal rules restrict any use of the information to criminally investigate or prosecute any alcohol or drug abuse patient.[facility] Reason for Visit (unrecogniz ed section and content) Reason Comments Patient Update Patient Question Reason Comments Patient Update Reason Comments Follow Up Reason Comments Stoma Consult (unrecognized sect ion and content) No Status Records FoundNo Status Records Found INFORMATION SOURCE (unrecogn ized section and content) DATE CREATED AUTHOR 07/02/2022 [facility] DATE CREATED AUTHOR 'S LAN LOVE 09/01/2024 [facility] FOR RECORDS PERTAINING TO PATIENTS WHO [...] BE BASED ON THE PRIMARY CLINICAL RECORDS. [facility] Contact At Once! [facility]. provides no warranty or guarantee of the accuracy or completeness of information in this document.
[2024-09-03 14:33] VITALS: BMI 36.7
--- OUTSIDE RECORDS SUMMARY | 2024-09-03 14:35 | XMS RPT_ITS | CCD ---
Author Organization [facility] Care Team Providers Care Grain Origination Specialist Name Role Phone Aurora VARGAS, Luis Cooley Unavailable DeFinis, Harumi Y Unavailable Unavailable Coreen, RN, Bella Cooley Unavailable Unavailgalo Waite MD, Maury Anthony Unavailable Marco ESPINO, Chente Perez Unavailable DeFinis, Harumi Y Unavailable Unavailable Trenton, Harumi Y Unavailable Unavailable Dr. Chente Conn Primary Care Provider Dr. Chente Conn Referring Provider Vidhya PSYCHIATRIC CLINICIAN, PSYCHIATRIC CLINICIAN-C Valarie Attending Provider Dr. Maury Waite Attending Provider Dr. Chente Conn Primary Care Provider Dr. Chente Conn Referring Provider Dr. Jacek Monsalve Attending Provider Dr. Chente Conn Primary Care Provider Dr. Chente Conn Referring Provider Dr. Maury Waite Attending Provider MD Dayo Jo Emergency Provider [phone] Cindy Alexandre Admit Provider Dr. Cindy Alexandre Other Provider Dr. Jacek Monsalve Other Provider Dr. Yovanny Moreira Attending Provider Dr. Yovanny Moreira Other Provider Dr. Armando Plaza Other Provider Dr. John Tolentino Other Provider Unavailab pio Kee PSYCHIATRIC CLINICIAN, PSYCHIATRIC CLINICIAN-C Valarie Other Provider Dr. Lucia Dillard Other [...] Provider Dr. Chente Conn Referring Provider Vidhya PSYCHIATRIC CLINICIAN, PSYCHIATRIC CLINICIAN-C Valarie Attending Provider Dr. Chente Conn Primary Care Provider Dr. Maury Waite Attending Provider Dr. Cindy Alexandre Referring Provider MD Dayo Jo Emergency Provider Dr. Cindy Alexandre Admit Provider Dr. Cindy Alexandre Other Provider Dr. Jacek Monsalve Other Provider Dr. Yovanny Moreira Attending Provider Dr. Yovanny Moreira Other Provider Dr. Armando Plaza Other Provider Dr. John Tolentino Other Provider Unavailab pio Kee PSYCHIATRIC CLINICIAN, PSYCHIATRIC CLINICIAN-C Valarie Other Provider Dr. Lucia Dillard Other Provider Dr. Fiona Echavarria Other Provider Dr. Lucia Dillard Attending Provider Dr. Jacek Monsalve Attending Provider Dr. Luis Simon Other Provider Dr. Roberto Hathaway Other Provider Dr. Luis Simon Attending Provider [phone] Dr. Barry Young Referring Provider Dr. Barry Young Attending Provider Dr. Barry Young Other Provider Dr. hCente Conn Referring Provider Vidhya PSYCHIATRIC CLINICIAN, PSYCHIATRIC CLINICIAN-C Valarie Attending Provider Dr. Chente Conn Primary Care Provider Dr. Maury Waite Attending Provider Dr. Cindy Alexandre Referring Provider MD Dayo Jo Emergency Provider Dr. Cindy Alexandre Admit Provider Dr. Cindy Alexandre Other Provider Dr. Jacek Monsalve Other Provider Dr. Yovanny Moreira Attending Provider Dr. Yovanny Moreira Other Provider Dr. Armando Plaza Other Provider Dr. John Tolentino Other Provider Unavailab pio Kee PSYCHIATRIC CLINICIAN, PSYCHIATRIC CLINICIAN-C Valarie Other Provider Dr. Lucia Dillard Other Provider Dr. Fiona Echavarria Other Provider Dr. Lucia Dillard Attending Provider Dr. Jacek Monsalve Attending Provider Dr. Luis Simon Other Provider Dr. Roberto Hathaway Other Provider Dr. Luis Simon Attending Provider Dr. Barry Young Referring Provider Dr. Barry Young Attending Provider Dr. Barry Young Other Provider Dr. Chente Conn Referring Provider Vidhya PSYCHIATRIC CLINICIAN, PSYCHIATRIC CLINICIAN-C Valarie Attending Provider Dr. Dario De La Torre Emergency Provider [facility], Dr. Jaimes Admit Provider [place], Dr. Jaimes Attending Provider Chente Perkins MD Primary Care Provider Dr. Chente Conn Primary Care Provider Dr. Dario De La Torre Emergency Provider [facility], Dr. Jaimes Admit Provider Dr. Fiona Echavarria Attending Provider Dr. Fiona Echavarria Other Provider Dr. Jacek Monsalve Other Provider Dr. Yovanny Moreira Other Provider Dr. Armando Plaza Other Provider Dr. John Tolentino Other Provider Unavailab pio Kee PSYCHIATRIC CLINICIAN, PSYCHIATRIC CLINICIAN-C Valarie Other Provider Dr. Lucia Dillard Attending Provider Dr. Jacek Monsalve Attending Provider Dr. Lucia Dillard Other Provider Dr. Roberto Hathaway Other Provider Bettie, Dr. Cindy Sharpe Referring Provider Dr. Luis Simon Other Provider [phone] Dr. Luis Simon Attending Provider [phone] Dr. Yovanny Moreira Attending Provider Bettie, Dr. [...] John Tolentino Other Provider Unavailab pio Kee PSYCHIATRIC CLINICIAN, PSYCHIATRIC CLINICIAN-C Valarie Other Provider Dr. Lucia Dillard Attending [...] Admit Provider Dr. Camacho Gonzalez Other Provider [phone] Barry Young Other Provider Dr. Cindy Alexandre Other Provider Dr. Vanessa Roberts Attending Provider Dr. Vanessa Roberts Other Provider Dr. Michael Posadas Other Provider Unavailable Dr. Chente Conn Referring Provider Vidhya PSYCHIATRIC CLINICIAN, PSYCHIATRIC CLINICIAN-C Valarie Attending Provider Dr. Chente Conn Primary Care Provider Dr. Chente Conn Primary Care Provider Dr. Stefan Gregory Attending Provider Dr. Donte Abebe Referring Provider Dr. Miky Rahman Emergency Provider Dr. Donte Abebe Admit Provider Dr. Donte Abebe Attending Provider Dr. Donte Abebe Other Provider Dr. Chente Conn Referring Provider Vidhya PSYCHIATRIC CLINICIAN, PSYCHIATRIC CLINICIAN-C Valarie Attending Provider Dr. Siddharth De La [...] Dr. Krishna Siddiqui Other Provider Bello, Dr. Reda Attending Provider Dr. Jacek Monsalve Other Provider [...] Provider Dr. Chente Conn Referring Provider Vidhya PSYCHIATRIC CLINICIAN, PSYCHIATRIC CLINICIAN-C Valarie Attending Provider [phone] Dr. Siddharth De La Rosa Emergency Provider Dr. Lucia Dillard Admit Provider Dr. Lucia Dillard Attending Provider Dr. Lucia Dillard Other Provider Dr. Krishna Siddiqui Other Provider Dr. Jacek Monsalve Attending Provider Dr. Jacek Monsalve Other Provider Dr. Yovanny Moreira Other Provider Dr. Mckinley Tristan Other Provider Dr. Cari Cavazos Other Provider [phone] Dr. Zackary Castro Other Provider Dr. Gris Hewitt Other Provider Dr. Patrice Langley Other Provider Unavailable Dr. Goran Rose Other Provider Dr. Luis Mohr Other Provider Dr. Vito Bright Other Provider Dr. Luther Huggins Other Provider Dr. Camacho Gonzalez Referring Provider Dr. Camacho Gonzalez Other Provider Dr. Camacho Gonzalez Attending Provider Dr. Chente Conn MD Primary Care Provider [phone] Senia VARGAS, Dr. Chente De La Paz [...] Chente Conn MD Referring Provider Unavailable Ovi PSYCHIATRIC CLINICIAN-C, Amber Cooley Attending Provider Vidhya PSYCHIATRIC CLINICIAN-CValarie Attending Provider Vidhya PSYCHIATRIC CLINICIAN-CValarie Referring Provider Dr. Chente Conn MD Primary [...] De La Paz Primary Care Provider [phone] Senia VARGAS, Dr. Chente De La Paz Primary Care Provider Senia VARGAS, Dr. Chente De La Paz Attending Provider Senia VARGAS, Dr. Chente De La Paz Referring Provider Chente Conn Primary Care Unavailable Matteo Posadas Attending Unavailable Matteo Posadas Referring Unavailable Chente Conn Primary Care Unavailable Vidhya PSYCHIATRIC CLINICIAN, Valarie Attending Unavailable Vidhya PSYCHIATRIC CLINICIAN, Valarie Referring Unavailable Chente Conn Primary Care Unavailable Cehnte Conn Attending Unavailable Matteo Posadas Consulting Unavailable [...] Tristan Consulting Unavailable Cari Cavazos Consulting Unavailab Zcakary Adame Consulting Unavailable Jace Shipley Consulting Unavailable [...] Referring Unavailable Amber Dior Attending Unavailable Vidhya PSYCHIATRIC CLINICIAN, Valarie Attending Unavailable Nathanael, Torey Primary Care [...] acetaminophen / codeine drug allergy 07-04-19 15 [facility] Work Phone: (8 sources) cisapride drug allergy 07-04-19 15 [facility] Work Phone: (8 sources) codeine drug allergy 07-04-19 [address] [facility] Work Phone: (20 sources) Dust; Translations: [DUST] allergy to substance 07-04-19 15 Other [facility] Work Phone: (8 sources) metroNIDAZOLE drug allergy 07-04-19 15 [facility] Work Phone: (14 sources) morphine; Translations: [ASTRAMORPH] allergy to substance 07-04-19 15 hallucinations [facility] Work Phone: (20 sources) morphine; Translations: [MORPHINE] drug allergy 06-23-19 Other: See Comments [facility] Work Phone: (14 sources) vancomycin; Translations: [VANCOMYCIN HCL] drug allergy 01-08-20 16 [facility] Work Phone: (20 sources) Cisapride; Translations: [cisapride monohydrate] Drug Allergy 05-20-19 [facility] (20 sources) Codeine; Translations: [CODEINE] Drug Allergy 06-23-19 Other: See Comments [facility] (20 sources) metroNIDAZOLE Drug Allergy 05-20-19 22 [facility] (20 sources) house dust allergenic extract Drug Allergy 12-01-19 NEEDS FOLLOW-UP [facility] (6 sources) Cisapride; Translations: [PROPULSID] Drug Allergy 02-08-20 12 [facility] (6 sources) metroNIDAZOLE; Translations: [METRONIDAZOLE HCL] Drug Allergy 05-09-19 15 [facility] Work Phone: (20 sources) Chlorhexidine Drug Allergy 06-23-19 23 [facility] (1 source) Chlorhexidine Drug Allergy 06-16-19 25 [facility] (1 source) Codeine Drug Allergy 06-16-19 25 [facility] (1 source) house dust allergenic extract Drug Allergy 06-16-19 25 [facility] (1 source) metroNIDAZOLE Drug Allergy 06-16-19 25 [facility] Medications Current Medications Medication Drug [...] October 23, 2022 11:00pm Start: 10-24-2022 [facility]tha xide-Simeth Active 5 ML PO 0000,0600,1200,1800 October 24, 2022 12:00am aluminum hydroxide 40 mg/ml / magnesium hydroxide 40 mg/ml / simethicone 4 mg/ml oral suspension (20 sources) Start: 10-24-2022 [facility]tha xide-Simeth 200-200-20 mg/5 mL suspension Active 5 mL PO 0000,0600,1200,1800 as needed for ANTACID October 24, 2022 12:00am Start: 10-24-2022 [facility]tha xide-Simeth Active 5 ML PO 0000,0600,1200,1800 October 24, 2022 12:00am Start: 01-11-2021 Alum-[facility] Bertha xide-Simeth Active 20 ML feeding tube 4 [...] 73 4.1 mcg intrath daily BACLOFEN SOLN [id number] Luann Elliott calcium carbonate 250 mg/ml oral [...] Cough Assist A ctive 1 NMA .Route .[facility] December 25, 2018 2:40pm assist in clearing secretions Inspiratory and Expiratory times of 20-40 seconds with a 1-2 second pause. Start: 12-25-2018 Cough Assist A ctive 1 NMA .Route .[facility] December 25, 2018 2:40pm Inspiratory and Expiratory times of 20-40 seconds with a 1-2 second pause. Start: 12-25-2018 Cough Assist A ctive 1 DOSE .Route .[facility] December 25, 2018 1:40pm Inspiratory and Expiratory times of 20-40 seconds with a 1-2 second pause. Start: 12-25-2018 Cough Assist A ctive 1 DOSE .Route .[facility] December 25, 2018 2:40pm Inspiratory and Expiratory [...] 20-40 seconds with a 1-2 second pause. [id number] 0.3 ml EPINEPHrine 1 mg/ml auto-injector (6 [...] by mouth three times daily METOCLOPRAMIDE HCL [id number] Maury Waite MD Start: 12-20-2015 End: 09-16-2018 [...] 3 September 30, 2023 11:26am ASTHMA nystatin [id number] unt/ml oral suspension (7 sources) Polyene Antifungal [...] TABS 60 mg. GT twice daily PHENOBARBITAL [id number] Luann Elliott Comment on above: Inject intravenously [...] tablet by mouth twice daily AMOXICILLIN-POT CLAVULANATE [id number] Maury Waite MD Start: 07-21-2016 End: 07-29-2016 [...] GTUBE every 8 hours; docusate / sennosides, senior living (14 sources) Start: 08-28-2016 SENNA-DOCUSATE SODIUM TABS as direceted as needed SENNOSIDES-DOCUSATE SODIUM TABS [id number] Maury Waite MD SENNA-DOCUSATE S ODIUM TABS SENNOSIDES-DOCUSATE SODIUM TABS [id number] Rosa Taylor LPN doxazosin 2 mg oral [...] 4; 1 cap by mouth daily LACTOBACILLUS [id number] Luann Elliott lactobacillus acidophilus [id number] unt oral capsule (20 sources) Start: 09-20-19 [...] mouth daily as needed MAGNESIUM HYDROXIDE SUSP [id number] Maury Waite MD Start: 12-20-2015 End: 12-27-2018 [...] ml by mouth daily MAGNESIUM HYDROXIDE SUSP [id number] Luann Elliott Comment on above: Take by mouth as nee ded. 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 rifAXIMin 550 mg oral tablet [...] 2015 12:00am December 27, 2018 10:53am sennosides, senior living 1.76 mg/ml oral solution (5 sources) Start: [...] GT daily as needed DOCUSATE SODIUM LIQD [id number] Maury Waite MD DOCUSATE SODIUM LIQD 200 mg GT daily DOCUSATE SODIUM LIQD [id number] Luann Elliott simethicone 66.7 mg/ml oral suspension [...] 24, 2023 12:00am September 30, 2023 12:00am 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 Problems Active Problems Problem Classification Problem Date [...] (5 sources) Drug therapy finding; Translations: [Other alf (current) drug therapy] Onset: 5 02-17-2021 Episodic [...] Auto (Unsp spec) [#/Vol] 1.17 10*3/uL 0.83-4.51 [facility] Absolute neutrophil countOrd ered By: Chente Conn on 08-22-2024 Neutrophils (Bld) [#/Vol] 2.1 10*3/uL 2.0-7.7 [facility] Anion gap in Serum or Plasma Ordered By: Chente Conn on 08-22-2024 Anion gap [Moles/Vol] 9 mmol/L 5-15 [facility] Automated lymphocyte count a s percentage of total leukocytesOrdered By: Chente Conn on 08-22-2024 Lymphocytes/100 WBC Auto (Unsp spec) 31.3 % 19-41 [facility] BUN/creatinine ratioOrdered By: Chente Conn on 08-22-2024 Urea nitrogen/Creatinine [Mass ratio] 46.4 mg/mg High 10-20 [facility] Basophil percentageOrdered B y: Chente Conn on 08-22-2024 Basophils/100 WBC (Bld) 0.0 % 0-1 [facility] Carbon dioxide, total [Moles /volume] in Central venous bloodOrdered By: Chente Conn on 08-22-2024 CO2 [Moles/Vol] 28.9 mmol/L 21.0-32.0 [facility] Chloride assayOrdered By: Areli Conn on 08-22-2024 Chloride [Moles/Vol] 99 mmol/L 98-108 [facility] Eosinophil percentageOrdered By: Chente Conn on 08-22-2024 Eosinophils/100 WBC (Bld) 4.5 % 0-5 [facility] Erythrocyte distribution wid th ratioOrdered By: Chente Conn on 08-22-2024 Erythrocyte distribution width (RBC) [Ratio] 16.3 % High 11.6-14.6 [facility] Erythrocyte distribution wid th standard deviationOrdered By: Chente Conn on 08-22-2024 Erythrocyte distribution width (RBC) [Ratio] 49.5 fl High 35.1-43.9 [facility] Glomerular filtration rate ( GFR) estimation/1.73 sq m using serum, plasma, or whole bOrdered By: Chente Conn on 08-22-2024 GFR/1.73 sq M.predicted among non-blacks MDRD (S/P/Bld) [Vol rate/Area] 167 mL/min/{1.73_m2} >60 [facility] Comment on above: mL/min/1.73m2 CKD-EP I Creatinine Equation (2020) Hematocrit Auto (Bld) [Volum e fraction]Ordered By: Chente Conn on 08-22-2024 Hematocrit (Bld) [Volume fraction] 31.8 % Low 40-54 [facility] Hemoglobin measurementOrdere d By: Chente Conn on 08-22-2024 Hemoglobin (Bld) [Mass/Vol] 10.1 g/dL Low 13.0-16.5 [facility] Immature granulocytes/100 WB C Auto (Bld)Ordered By: Chente Conn on 08-22-2024 Immature granulocytes/100 WBC (Bld) 0.500 % 0.0-0.9 [facility] Comment on above: IG% - Immature Granu locytes (promyelocytes, myelocytes and metamyelocytes) > 1% indicates that a LEFT SHIFT is Present. MCV (mean corpuscular volume ) determinationOrdered By: Chente Conn on 08-22-2024 MCV (RBC) [Entitic vol] 85.3 fL 80-94 [facility] Mean corpuscular hemoglobin (MCH) determinationOrdered By: Chente Conn on 08-22-2024 MCH (RBC) [Entitic mass] 27.1 pg 27.0-32.0 [facility] Mean corpuscular hemoglobin concentration (MCHC) determinationOrdered By: Chente oCnn on 08-22-2024 MCHC (RBC) [Mass/Vol] 31.8 g/dL Low 32-36 [facility] Mean platelet volume determi nationOrdered By: Chente Conn on 08-22-2024 Platelet mean volume (Bld) [Entitic vol] 10.8 fL 6.2-12.0 [facility] Monocyte percentageOrdered B y: Chente Conn on 08-22-2024 Monocytes/100 WBC (Bld) 8.8 % 0-10 [facility] Neutrophil percentageOrdered By: Chente Conn on 08-22-2024 Neutrophils/100 WBC (Bld) 54.9 % 47-70 [facility] Nucleated red blood cell per centageOrdered By: Chente Conn on 08-22-2024 Nucleated RBC/100 WBC (Bld) [Ratio] 0 % 0-5 [facility] Platelet countOrdered By: Areli Conn on 08-22-2024 Platelets (Bld) [#/Vol] 118 10*3/uL Low 150-450 [facility] Potassium measurement (mass/ volume)Ordered By: Chente Conn on 08-22-2024 Potassium (Unsp spec) [Mass/Vol] 4.1 mmol/L 3.3-5.1 [facility] RBC Auto (Bld) [#/Vol]Ordere d By: Chente Conn on 08-22-2024 RBC (Bld) [#/Vol] 3.73 10*6/uL Low 4.6-6.2 [facility] Serum creatinine measurement (mass/volume)Ordered By: Chente Conn on 08-22-2024 Creatinine [Mass/Vol] 0.22 mg/dL Low 0.70-1.20 [facility] Serum glucose measurement (m ass/volume)Ordered By: Chente Conn on 08-22-2024 Glucose [Mass/Vol] 90 mg/dL 70-99 [facility] Serum or plasma calcium jacinta urement (mass/volume)Ordered By: Chente Conn on 08-22-2024 Calcium [Mass/Vol] 8.7 mg/dL 7.6-11.0 [facility] Serum or plasma urea nitroge n measurement (mass/volume)Ordered By: Chente Conn on 08-22-2024 Urea nitrogen [Mass/Vol] 10 mg/dL 4-19 [facility] Sodium levelOrdered By: Chente Conn on 08-22-2024 Sodium [Moles/Vol] 137 mmol/L 133-145 [facility] White blood cell (WBC) count Ordered By: Chente Conn on 08-22-2024 WBC (Bld) [#/Vol] 3.7 10*3/uL Low 4.4-11.0 [facility] Laboratory - Chemistry and C hemistry - challengeOrdered By: Matteo Posadas on 07-27-2024 Testosterone [Mass/Vol] 15.60 ng/dL Low 300-890 [facility] Absolute lymphocyte countOrd ered By: Chente Conn on 07-25-2024 Lymphocytes Auto (Unsp spec) [#/Vol] 2.03 10*3/uL 0.83-4.51 [facility] Absolute neutrophil countOrd ered By: Chente Conn on 07-25-2024 Neutrophils (Bld) [#/Vol] 3.4 10*3/uL 2.0-7.7 [facility] Anion gap in Serum or Plasma Ordered By: Chente Conn on 07-25-2024 Anion gap [Moles/Vol] 14 mmol/L 5-15 [facility] Automated lymphocyte count a s percentage of total leukocytesOrdered By: Chente Conn on 07-25-2024 Lymphocytes/100 WBC Auto (Unsp spec) 31.8 % 19-41 [facility] BUN/creatinine ratioOrdered By: Chente Conn on 07-25-2024 Urea nitrogen/Creatinine [Mass ratio] 24.1 mg/mg High 10-20 [facility] Basophil percentageOrdered B y: Chente Conn on 07-25-2024 Basophils/100 WBC (Bld) 0.2 % 0-1 [facility] Carbon dioxide, total [Moles /volume] in Central venous bloodOrdered By: Chente Conn on 07-25-2024 CO2 [Moles/Vol] 25.0 mmol/L 21.0-32.0 [facility] Chloride assayOrdered By: Areli Conn on 07-25-2024 Chloride [Moles/Vol] 99 mmol/L 98-108 [facility] Eosinophil percentageOrdered By: Chente Conn on 07-25-2024 Eosinophils/100 WBC (Bld) 3.6 % 0-5 [facility] Erythrocyte distribution wid th ratioOrdered By: Chente Conn on 07-25-2024 Erythrocyte distribution width (RBC) [Ratio] 15.6 % High 11.6-14.6 [facility] Erythrocyte distribution wid th standard deviationOrdered By: Chente Conn on 07-25-2024 Erythrocyte distribution width (RBC) [Ratio] 47.2 fl High 35.1-43.9 [facility] Glomerular filtration rate ( GFR) estimation/1.73 sq m using serum, plasma, or whole bOrdered By: Chente Conn on 07-25-2024 GFR/1.73 sq M.predicted among non-blacks MDRD (S/P/Bld) [Vol rate/Area] 148 mL/min/{1.73_m2} >60 [facility] Comment on above: mL/min/1.73m2 CKD-EP I Creatinine Equation (2020) Hematocrit Auto (Bld) [Volum e fraction]Ordered By: Chente Conn on 07-25-2024 Hematocrit (Bld) [Volume fraction] 30.1 % Low 40-54 [facility] Hemoglobin measurementOrdere d By: Chente Conn on 07-25-2024 Hemoglobin (Bld) [Mass/Vol] 9.8 g/dL Low 13.0-16.5 [facility] Immature granulocytes/100 WB C Auto (Bld)Ordered By: Chente Conn on 07-25-2024 Immature granulocytes/100 WBC (Bld) 0.300 % 0.0-0.9 [facility] Comment on above: IG% - Immature Granu locytes (promyelocytes, myelocytes and metamyelocytes) > 1% indicates that a LEFT SHIFT is Present. MCV (mean corpuscular volume ) determinationOrdered By: Chente Conn on 07-25-2024 MCV (RBC) [Entitic vol] 84.1 fL 80-94 [facility] Mean corpuscular hemoglobin (MCH) determinationOrdered By: Chente Conn on 07-25-2024 MCH (RBC) [Entitic mass] 27.4 pg 27.0-32.0 [facility] Mean corpuscular hemoglobin concentration (MCHC) determinationOrdered By: Chente Conn on 07-25-2024 MCHC (RBC) [Mass/Vol] 32.6 g/dL 32-36 [facility] Mean platelet volume determi nationOrdered By: Chente Conn on 07-25-2024 Platelet mean volume (Bld) [Entitic vol] 10.2 fL 6.2-12.0 [facility] Monocyte percentageOrdered B y: Chente Conn on 07-25-2024 Monocytes/100 WBC (Bld) 11.6 % High 0-10 [facility] Neutrophil percentageOrdered By: Chente Conn on 07-25-2024 Neutrophils/100 WBC (Bld) 52.5 % 47-70 [facility] Nucleated red blood cell per centageOrdered By: Chente Conn on 07-25-2024 Nucleated RBC/100 WBC (Bld) [Ratio] 0 % 0-5 [facility] Platelet countOrdered By: Areli Conn on 07-25-2024 Platelets (Bld) [#/Vol] 166 10*3/uL 150-450 [facility] Potassium measurement (mass/ volume)Ordered By: Chente Conn on 07-25-2024 Potassium (Unsp spec) [Mass/Vol] 3.7 mmol/L 3.3-5.1 [facility] RBC Auto (Bld) [#/Vol]Ordere d By: Chente Conn on 07-25-2024 RBC (Bld) [#/Vol] 3.58 10*6/uL Low 4.6-6.2 [facility] Serum creatinine measurement (mass/volume)Ordered By: Chente Conn on 07-25-2024 Creatinine [Mass/Vol] 0.33 mg/dL Low 0.70-1.20 [facility] Serum glucose measurement (m ass/volume)Ordered By: Chente Conn on 07-25-2024 Glucose [Mass/Vol] 113 mg/dL High 70-99 [facility] Serum or plasma calcium jacinta urement (mass/volume)Ordered By: Chente Conn on 07-25-2024 Calcium [Mass/Vol] 8.8 mg/dL 7.6-11.0 [facility] Serum or plasma urea nitroge n measurement (mass/volume)Ordered By: Chente Conn on 07-25-2024 Urea nitrogen [Mass/Vol] 8 mg/dL 4-19 [facility] Sodium levelOrdered By: Chente Conn on 07-25-2024 Sodium [Moles/Vol] 137 mmol/L 133-145 [facility] White blood cell (WBC) count Ordered By: Chente Conn on 07-25-2024 WBC (Bld) [#/Vol] 6.4 10*3/uL 4.4-11.0 [facility] Free testosterone percentage Ordered By: Matteo Posadas on 07-18-2024 Testosterone Free/Testosterone.total [Mass fraction] 5.01 % High 1.50-4.20 [facility] Insulin-like growth factor ( IGF) measurementOrdered By: Matteo Posadas on 07-18-2024 Insulin-like growth factor [Moles/Vol] 109 ng/mL 84-270 [facility] Comment on above: Performed at: [facility] [address] [id number] Director: Berry Gonzalez PhD, Phone: [phone] at: [facility] [address] [id number] Director: Nicohlas Ryan MD, Phone: [phone] Serum or plasma free testost erone measurement (mass/volume)Ordered By: Matteo Posadas on 07-18-2024 Testosterone Free [Mass/Vol] 0.50 ng/dL Low 5.00-21.00 [facility] Testosterone, totalOrdered B y: Matteo Posadas on 07-18-2024 Testosterone [Mass/Vol] 10 ng/dL Low 264-916 [facility] Comment on above: Adult male reference interval is based on a population ofhealthy nonobese males (BMI <30) between 19 and 39 yearsold. Marlen et.al. JCEM 2017,102;[id number]. PMID:[id number]. Absolute lymphocyte countOrd ered By: Chente Conn on 06-26-2024 Lymphocytes Auto (Unsp spec) [#/Vol] 2.13 10*3/uL 0.83-4.51 [facility] Absolute neutrophil countOrd ered By: Chente Conn on 06-26-2024 Neutrophils (Bld) [#/Vol] 2.7 10*3/uL 2.0-7.7 [facility] Anion gap in Serum or Plasma Ordered By: Chente Conn on 06-26-2024 Anion gap [Moles/Vol] 10 mmol/L 5-15 [facility] Automated lymphocyte count a s percentage of total leukocytesOrdered By: Chente Conn on 06-26-2024 Lymphocytes/100 WBC Auto (Unsp spec) 36.8 % 19-41 [facility] BUN/creatinine ratioOrdered By: Chente Conn on 06-26-2024 Urea nitrogen/Creatinine [Mass ratio] 40.8 mg/mg High 10-20 [facility] Basophil percentageOrdered B y: Chente Conn on 06-26-2024 Basophils/100 WBC (Bld) 0.3 % 0-1 [facility] Bilirubin, totalOrdered By: Chente Conn on 06-26-2024 Bilirubin [Mass/Vol] 0.16 mg/dL 0.00-1.30 [facility] Carbon dioxide, total [Moles /volume] in Central venous bloodOrdered By: Chente Conn on 06-26-2024 CO2 [Moles/Vol] 27.6 mmol/L 21.0-32.0 [facility] Chloride assayOrdered By: Areli Conn on 06-26-2024 Chloride [Moles/Vol] 98 mmol/L 98-108 [facility] Eosinophil percentageOrdered By: Chente Conn on 06-26-2024 Eosinophils/100 WBC (Bld) 6.6 % High 0-5 [facility] Erythrocyte distribution wid th ratioOrdered By: Chente Conn on 06-26-2024 Erythrocyte distribution width (RBC) [Ratio] 15.4 % High 11.6-14.6 [facility] Erythrocyte distribution wid th standard deviationOrdered By: Chente Conn on 06-26-2024 Erythrocyte distribution width (RBC) [Ratio] 46.5 fl High 35.1-43.9 [facility] Glomerular filtration rate ( GFR) estimation/1.73 sq m using serum, plasma, or whole bOrdered By: Chente Conn on 06-26-2024 GFR/1.73 sq M.predicted among non-blacks MDRD (S/P/Bld) [Vol rate/Area] 157 mL/min/{1.73_m2} >60 [facility] Comment on above: mL/min/1.73m2 CKD-EP I Creatinine Equation (2020) Hematocrit Auto (Bld) [Volum e fraction]Ordered By: Chente Conn on 06-26-2024 Hematocrit (Bld) [Volume fraction] 32.2 % Low 40-54 [facility] Hemoglobin measurementOrdere d By: Chente Conn on 06-26-2024 Hemoglobin (Bld) [Mass/Vol] 10.3 g/dL Low 13.0-16.5 [facility] Immature granulocytes/100 WB C Auto (Bld)Ordered By: Chente Conn on 06-26-2024 Immature granulocytes/100 WBC (Bld) 0.300 % 0.0-0.9 [facility] Comment on above: IG% - Immature Granu locytes (promyelocytes, myelocytes and metamyelocytes) > 1% indicates that a LEFT SHIFT is Present. Iron measurement (mass/mass) Ordered By: Chente Conn on 06-26-2024 Iron (Unsp spec) [Mass/Mass] 30 ug/dL Low 65-175 [facility] LH ser/plasOrdered By: Matteo Posadas on 06-26-2024 Lutropin Qn 40.9 m[IU]/mL [facility] Comment on above: FEMALE:Follicular: 1 .9-12.5 mIU/mLMidcycle: 8.7-76.3 mIU/mLLuteal: 0.5-16.9 mIU/mLPost Menopause: 15.9-54.0 mIU/mLMALE:20-70 Years: 1.5-9.3 mIU/mL>70 Years: 3.1-34.6 mIU/mL Laboratory - Chemistry and C hemistry - challengeOrdered By: Chente Conn on 06-26-2024 AST [Catalytic activity/Vol] 12 U/L <38 [facility] MCV (mean corpuscular volume ) determinationOrdered By: Chente Conn on 06-26-2024 MCV (RBC) [Entitic vol] 84.3 fL 80-94 [facility] Mean corpuscular hemoglobin (MCH) determinationOrdered By: Chente Conn on 06-26-2024 MCH (RBC) [Entitic mass] 27.0 pg 27.0-32.0 [facility] Mean corpuscular hemoglobin concentration (MCHC) determinationOrdered By: Chente Conn on 06-26-2024 MCHC (RBC) [Mass/Vol] 32.0 g/dL 32-36 [facility] Mean platelet volume determi nationOrdered By: Chente Conn on 06-26-2024 Platelet mean volume (Bld) [Entitic vol] 10.0 fL 6.2-12.0 [facility] Monocyte percentageOrdered B y: Chente Conn on 06-26-2024 Monocytes/100 WBC (Bld) 9.2 % 0-10 [facility] Neutrophil percentageOrdered By: Chente Conn on 06-26-2024 Neutrophils/100 WBC (Bld) 46.8 % Low 47-70 [facility] No Panel InformationOrdered By: Chente Conn on 06-26-2024 Unsaturated Iron Binding Capacity 216 ug/dL Low 228-428 [facility] Nucleated red blood cell per centageOrdered By: Chente Conn on 06-26-2024 Nucleated RBC/100 WBC (Bld) [Ratio] 0 % 0-5 [facility] Platelet countOrdered By: Areli Conn on 06-26-2024 Platelets (Bld) [#/Vol] 204 10*3/uL 150-450 [facility] Potassium measurement (mass/ volume)Ordered By: Chente Conn on 06-26-2024 Potassium (Unsp spec) [Mass/Vol] 3.8 mmol/L 3.3-5.1 [facility] RBC Auto (Bld) [#/Vol]Ordere d By: Chente Conn on 06-26-2024 RBC (Bld) [#/Vol] 3.82 10*6/uL Low 4.6-6.2 [facility] Serum creatinine measurement (mass/volume)Ordered By: Chente Conn on 06-26-2024 Creatinine [Mass/Vol] 0.27 mg/dL Low 0.70-1.20 [facility] Serum globulin measurementOr dered By: Chente Conn on 06-26-2024 Globulin (S) [Mass/Vol] 4.2 g/dL 2.2-4.2 [facility] Serum glucose measurement (m ass/volume)Ordered By: Chente Conn on 06-26-2024 Glucose [Mass/Vol] 80 mg/dL 70-99 [facility] Serum or plasma alanine salas otransferase (ALT) measurementOrdered By: Chente Conn on 06-26-2024 ALT [Catalytic activity/Vol] 8 U/L <47 [facility] Serum or plasma albumin jacinta urement (mass/volume)Ordered By: Chente Conn on 06-26-2024 Albumin [Mass/Vol] 3.6 g/dL 3.5-5.0 [facility] Serum or plasma albumin/glob ulin mass ratioOrdered By: Chente Conn on 06-26-2024 Albumin/Globulin [Mass ratio] 0.8 {ratio} Low 0.9-2.4 [facility] Serum or plasma alkaline robbi sphatase measurementOrdered By: Chente Conn on 06-26-2024 ALP [Catalytic activity/Vol] 166 U/L High 40-129 [facility] Serum or plasma calcium jacinta urement (mass/volume)Ordered By: Chente Conn on 06-26-2024 Calcium [Mass/Vol] 8.9 mg/dL 7.6-11.0 [facility] Serum or plasma ferritin missy surement (mass/volume)Ordered By: Chente Conn on 06-26-2024 Ferritin [Mass/Vol] 39 ng/mL 37-417 [facility] Serum or plasma iron saturat ion measurement (mass fraction)Ordered By: Chente Conn on 06-26-2024 Iron saturation [Mass fraction] 12.2 % 9-55 [facility] Comment on above: Previous reported re sult: 12.0 %Edited by: KARTHIKEYAN on 06/26/24:6609 AMENDED REPORT 06/26/24 0897 IRON SATURATION previously reported as: 12.0 % Serum or plasma prolactin me asurement (mass/volume)Ordered By: Matteo Posadas on 06-26-2024 Prolactin [Mass/Vol] See comment [facility] Comment on above: TEST RESULTS LIMITSP rolactin 31.5 High ng/mL 3.9-22.7 TESTING PERFORMED AT [facility]. ORIGINAL REPORT ON FILE IN LAB CONTAINS ADDITIONAL TEST SITE INFORMATION. Serum or plasma urea nitroge n measurement (mass/volume)Ordered By: Chente Conn on 06-26-2024 Urea nitrogen [Mass/Vol] 11 mg/dL 4-19 [facility] Sodium levelOrdered By: Chente Conn on 06-26-2024 Sodium [Moles/Vol] 136 mmol/L 133-145 [facility] Total proteinOrdered By: Darwin Conn on 06-26-2024 Protein [Mass/Vol] 7.8 g/dL 5.9-8.4 [facility] White blood cell (WBC) count Ordered By: Chente Conn on 06-26-2024 WBC (Bld) [#/Vol] 5.8 10*3/uL 4.4-11.0 [facility] Absolute lymphocyte countOrd ered By: Chente Conn on 05-29-2024 Lymphocytes Auto (Unsp spec) [#/Vol] 2.21 10*3/uL 0.83-4.51 [facility] Absolute neutrophil countOrd ered By: Chente Conn on 05-29-2024 Neutrophils (Bld) [#/Vol] 3.5 10*3/uL 2.0-7.7 [facility] Anion gap in Serum or Plasma Ordered By: Chente Conn on 05-29-2024 Anion gap [Moles/Vol] 12 mmol/L 5-15 [facility] Automated lymphocyte count a s percentage of total leukocytesOrdered By: Chente Conn on 05-29-2024 Lymphocytes/100 WBC Auto (Unsp spec) 32.7 % 19-41 [facility] BUN/creatinine ratioOrdered By: Chente Conn on 05-29-2024 Urea nitrogen/Creatinine [Mass ratio] 37.5 mg/mg High 10-20 [facility] Basophil percentageOrdered B y: Chente Conn on 05-29-2024 Basophils/100 WBC (Bld) 0.3 % 0-1 [facility] Bilirubin, totalOrdered By: Chente Conn on 05-29-2024 Bilirubin [Mass/Vol] mg/dL 0.00-1.30 [facility] Carbon dioxide, total [Moles /volume] in Central venous bloodOrdered By: Chente Conn on 05-29-2024 CO2 [Moles/Vol] 25.6 mmol/L 21.0-32.0 [facility] Chloride assayOrdered By: Areli Conn on 05-29-2024 Chloride [Moles/Vol] 100 mmol/L 98-108 [facility] Eosinophil percentageOrdered By: Chente Conn on 05-29-2024 Eosinophils/100 WBC (Bld) 5.2 % High 0-5 [facility] Erythrocyte distribution wid th ratioOrdered By: Chente Conn on 05-29-2024 Erythrocyte distribution width (RBC) [Ratio] 16.6 % High 11.6-14.6 [facility] Erythrocyte distribution wid th standard deviationOrdered By: Chente Conn on 05-29-2024 Erythrocyte distribution width (RBC) [Ratio] 51.6 fl High 35.1-43.9 [facility] Glomerular filtration rate ( GFR) estimation/1.73 sq m using serum, plasma, or whole bOrdered By: Chente Conn on 05-29-2024 GFR/1.73 sq M.predicted among non-blacks MDRD (S/P/Bld) [Vol rate/Area] 147 mL/min/{1.73_m2} >60 [facility] Comment on above: mL/min/1.73m2 CKD-EP I Creatinine Equation (2020) Hematocrit Auto (Bld) [Volum e fraction]Ordered By: Chente Conn on 05-29-2024 Hematocrit (Bld) [Volume fraction] 31.8 % Low 40-54 [facility] Hemoglobin measurementOrdere d By: Chente Conn on 05-29-2024 Hemoglobin (Bld) [Mass/Vol] 10.0 g/dL Low 13.0-16.5 [facility] Immature granulocytes/100 WB C Auto (Bld)Ordered By: Chente Conn on 05-29-2024 Immature granulocytes/100 WBC (Bld) 0.300 % 0.0-0.9 [facility] Comment on above: IG% - Immature Granu locytes (promyelocytes, myelocytes and metamyelocytes) > 1% indicates that a LEFT SHIFT is Present. Laboratory - Chemistry and C hemistry - challengeOrdered By: Chente Conn on 05-29-2024 AST [Catalytic activity/Vol] 14 U/L <38 [facility] MCV (mean corpuscular volume ) determinationOrdered By: Chente Conn on 05-29-2024 MCV (RBC) [Entitic vol] 84.8 fL 80-94 [facility] Mean corpuscular hemoglobin (MCH) determinationOrdered By: Chente Conn on 05-29-2024 MCH (RBC) [Entitic mass] 26.7 pg Low 27.0-32.0 [facility] Mean corpuscular hemoglobin concentration (MCHC) determinationOrdered By: Chente Conn on 05-29-2024 MCHC (RBC) [Mass/Vol] 31.4 g/dL Low 32-36 [facility] Mean platelet volume determi nationOrdered By: Chente Conn on 05-29-2024 Platelet mean volume (Bld) [Entitic vol] 10.1 fL 6.2-12.0 [facility] Monocyte percentageOrdered B y: Chente Conn on 05-29-2024 Monocytes/100 WBC (Bld) 9.6 % 0-10 [facility] Neutrophil percentageOrdered By: Chente Conn on 05-29-2024 Neutrophils/100 WBC (Bld) 51.9 % 47-70 [facility] Nucleated red blood cell per centageOrdered By: Chente Conn on 05-29-2024 Nucleated RBC/100 WBC (Bld) [Ratio] 0 % 0-5 [facility] Platelet countOrdered By: Areli Conn on 05-29-2024 Platelets (Bld) [#/Vol] 182 10*3/uL 150-450 [facility] Potassium measurement (mass/ volume)Ordered By: Chente Conn on 05-29-2024 Potassium (Unsp spec) [Mass/Vol] 3.7 mmol/L 3.3-5.1 [facility] RBC Auto (Bld) [#/Vol]Ordere d By: Chente Conn on 05-29-2024 RBC (Bld) [#/Vol] 3.75 10*6/uL Low 4.6-6.2 [facility] Serum creatinine measurement (mass/volume)Ordered By: Chente Conn on 05-29-2024 Creatinine [Mass/Vol] 0.34 mg/dL Low 0.70-1.20 [facility] Serum globulin measurementOr dered By: Chente Conn on 05-29-2024 Globulin (S) [Mass/Vol] 3.7 g/dL 2.2-4.2 [facility] Serum glucose measurement (m ass/volume)Ordered By: Chente Conn on 05-29-2024 Glucose [Mass/Vol] 107 mg/dL High 70-99 [facility] Serum or plasma alanine salas otransferase (ALT) measurementOrdered By: Chente Conn on 05-29-2024 ALT [Catalytic activity/Vol] 11 U/L <47 [facility] Serum or plasma albumin jacinta urement (mass/volume)Ordered By: Chente Conn on 05-29-2024 Albumin [Mass/Vol] 3.5 g/dL 3.5-5.0 [facility] Serum or plasma albumin/glob ulin mass ratioOrdered By: Chente Conn on 05-29-2024 Albumin/Globulin [Mass ratio] 0.9 {ratio} 0.9-2.4 [facility] Serum or plasma alkaline robbi sphatase measurementOrdered By: Chente Conn on 05-29-2024 ALP [Catalytic activity/Vol] 131 U/L High 40-129 [facility] Serum or plasma calcium jacinta urement (mass/volume)Ordered By: Chente Conn on 05-29-2024 Calcium [Mass/Vol] 8.8 mg/dL 7.6-11.0 [facility] Serum or plasma urea nitroge n measurement (mass/volume)Ordered By: Chente Conn on 05-29-2024 Urea nitrogen [Mass/Vol] 13 mg/dL 4-19 [facility] Sodium levelOrdered By: Chente Conn on 05-29-2024 Sodium [Moles/Vol] 137 mmol/L 133-145 [facility] Total proteinOrdered By: Darwin Conn on 05-29-2024 Protein [Mass/Vol] 7.1 g/dL 5.9-8.4 [facility] White blood cell (WBC) count Ordered By: Chente Conn on 05-29-2024 WBC (Bld) [#/Vol] 6.8 10*3/uL 4.4-11.0 [facility] Gram stainOrdered By: Johnny Kee on 05-09-2024 Microscopic observation Gram stain Nom (Unsp spec) [facility] Microbial respiratory cultur eOrdered By: Valarie Kee on 05-09-2024 Microorganism identified Cx Nom (Unsp spec) Pseudomonas aeruginosa Abnormal [facility] Microorganism identified Cx Nom (Unsp spec) Pseudomonas aeruginosa#2 Abnormal [facility] Microorganism identified Cx Nom (Unsp spec) Proteus mirabilis Abnormal [facility] Microorganism identified Cx Nom (Unsp spec)Ordered By: Valarie Kee on 05-09-2024 Respiratory Culture Pseudomonas aeruginosa Abnormal [facility] Respiratory Culture Pseudomonas aeruginosa#2 Abnormal [facility] Respiratory Culture Proteus mirabilis Abnormal [facility] Absolute lymphocyte countOrd ered By: Chente Conn on 05-01-2024 Lymphocytes Auto (Unsp spec) [#/Vol] 2.20 10*3/uL 0.83-4.51 [facility] Absolute neutrophil countOrd ered By: Chente Conn on 05-01-2024 Neutrophils (Bld) [#/Vol] 3.1 10*3/uL 2.0-7.7 [facility] Anion gap in Serum or Plasma Ordered By: Chente Conn on 05-01-2024 Anion gap [Moles/Vol] 10 mmol/L 5-15 [facility] Automated lymphocyte count a s percentage of total leukocytesOrdered By: Chente Conn on 05-01-2024 Lymphocytes/100 WBC Auto (Unsp spec) 35.4 % - [facility] BUN/creatinine ratioOrdered By: Chente Conn on 05-01-2024 Urea nitrogen/Creatinine [Mass ratio] 40.6 mg/mg High 10-20 [facility] Basophil percentageOrdered B y: Chente Conn on 05-01-2024 Basophils/100 WBC (Bld) 0.2 % 0-1 [facility] Carbon dioxide, total [Moles /volume] in Central venous bloodOrdered By: Chente Conn on 05-01-2024 CO2 [Moles/Vol] 27.4 mmol/L 21.0-32.0 [facility] Chloride assayOrdered By: Areli Conn on 05-01-2024 Chloride [Moles/Vol] 98 mmol/L 98-108 [facility] Eosinophil percentageOrdered By: Chente Conn on 05-01-2024 Eosinophils/100 WBC (Bld) 4.7 % 0-5 [facility] Erythrocyte distribution wid th ratioOrdered By: Chente Conn on 05-01-2024 Erythrocyte distribution width (RBC) [Ratio] 16.6 % High 11.6-14.6 [facility] Erythrocyte distribution wid th standard deviationOrdered By: Chente Conn on 05-01-2024 Erythrocyte distribution width (RBC) [Entitic vol] 50.4 fL High 35.1-43.9 [facility] Erythrocyte distribution width (RBC) [Ratio] 50.4 fl High 35.1-43.9 [facility] GFR/1.73 sq M.predicted joey g non-blacks MDRD (S/P/Bld) [Vol rate/Area]Ordered By: Chente Conn on 05-01-2024 Estimated GFR (MDRD) Non-Af Amer 154 >60 [facility] Comment on above: mL/min/1.73m2 CKD-EP I Creatinine Equation (2020) Glomerular filtration rate ( GFR) estimation/1.73 sq m using serum, plasma, or whole bOrdered By: Chente Conn on 05-01-2024 GFR/1.73 sq M.predicted among non-blacks MDRD (S/P/Bld) [Vol rate/Area] 154 mL/min/{1.73_m2} >60 [facility] Comment on above: mL/min/1.73m2 CKD-EP I Creatinine Equation (2020) Hematocrit Auto (Bld) [Volum e fraction]Ordered By: Chente Conn on 05-01-2024 Hematocrit (Bld) [Volume fraction] 33.5 % Low 40-54 [facility] Hemoglobin measurementOrdere d By: Chente Conn on 05-01-2024 Hemoglobin (Bld) [Mass/Vol] 10.5 g/dL Low 13.0-16.5 [facility] Immature granulocytes/100 WB C Auto (Bld)Ordered By: Chente Conn on 05-01-2024 Immature granulocytes/100 WBC (Bld) 0.200 % 0.0-0.9 [facility] Comment on above: IG% - Immature Granu locytes (promyelocytes, myelocytes and metamyelocytes) > 1% indicates that a LEFT SHIFT is Present. Lymphocytes Auto (Unsp spec) [#/Vol]Ordered By: Chente Conn on 05-01-2024 Lymphocytes (Bld) [#/Vol] 2.20 10*3/uL 0.83-4.5 1 [facility] Lymphocytes/100 WBC Auto (Un sp spec)Ordered By: Chente Conn on 05-01-2024 Lymphocytes/100 WBC (Bld) 35.4 % 19-41 [facility] MCV (mean corpuscular volume ) determinationOrdered By: Chente Conn on 05-01-2024 MCV (RBC) [Entitic vol] 82.7 fL 80-94 [facility] Mean corpuscular hemoglobin (MCH) determinationOrdered By: Chente Conn on 05-01-2024 MCH (RBC) [Entitic mass] 25.9 pg Low 27.0-32.0 [facility] Mean corpuscular hemoglobin concentration (MCHC) determinationOrdered By: Chente Conn on 05-01-2024 MCHC (RBC) [Mass/Vol] 31.3 g/dL Low 32-36 [facility] Mean platelet volume determi nationOrdered By: Chente Conn on 05-01-2024 Platelet mean volume (Bld) [Entitic vol] 10.5 fL 6.2-12.0 [facility] Monocyte percentageOrdered B y: Chente Conn on 05-01-2024 Monocytes/100 WBC (Bld) 10.3 % High 0-10 [facility] Neutrophil percentageOrdered By: Chente Conn on 05-01-2024 Neutrophils/100 WBC (Bld) 49.2 % 47-70 [facility] Nucleated red blood cell per centageOrdered By: Chente Conn on 03-10-2025 Nucleated RBC/100 WBC (Bld) [Ratio] 0 % 0-5 [facility] Platelet countOrdered By: Areli Conn on 05-01-2024 Platelets (Bld) [#/Vol] 209 10*3/uL 150-450 [facility] Potassium (Unsp spec) [Mass/ Vol]Ordered By: Chente Conn on 05-01-2024 Potassium [Moles/Vol] 4.3 mmol/L 3.3-5.1 [facility] Potassium measurement (mass/ volume)Ordered By: Chente Conn on 05-01-2024 Potassium (Unsp spec) [Mass/Vol] 4.3 mmol/L 3.3-5.1 [facility] RBC Auto (Bld) [#/Vol]Ordere d By: Chente Conn on 05-01-2024 RBC (Bld) [#/Vol] 4.05 10*6/uL Low 4.6-6.2 [facility] Serum creatinine measurement (mass/volume)Ordered By: Chente Conn on 05-01-2024 Creatinine [Mass/Vol] 0.29 mg/dL Low 0.70-1.20 [facility] Serum glucose measurement (m ass/volume)Ordered By: Chente Conn on 05-01-2024 Glucose [Mass/Vol] 82 mg/dL 70-99 [facility] Serum or plasma calcium jacinta urement (mass/volume)Ordered By: Chente Conn on 05-01-2024 Calcium [Mass/Vol] 8.8 mg/dL 7.6-11.0 [facility] Serum or plasma urea nitroge n measurement (mass/volume)Ordered By: Chente Conn on 05-01-2024 Urea nitrogen [Mass/Vol] 12 mg/dL 4-19 [facility] Sodium levelOrdered By: Chente Conn on 05-01-2024 Sodium [Moles/Vol] 135 mmol/L 133-145 [facility] White blood cell (WBC) count Ordered By: Chente Conn on 05-01-2024 WBC (Bld) [#/Vol] 6.2 10*3/uL 4.4-11.0 [facility] Absolute lymphocyte countOrd ered By: Chente Conn on 04-03-2024 Lymphocytes Auto (Unsp spec) [#/Vol] 2.12 10*3/uL 0.83-4.51 [facility] Absolute neutrophil countOrd ered By: Chente Conn on 04-03-2024 Neutrophils (Bld) [#/Vol] 2.2 10*3/uL 2.0-7.7 [facility] Automated lymphocyte count a s percentage of total leukocytesOrdered By: Chente Conn on 04-03-2024 Lymphocytes/100 WBC Auto (Unsp spec) 41.2 % High 19-41 [facility] Basophil percentageOrdered B y: Chente Conn on 04-03-2024 Basophils/100 WBC (Bld) 0.2 % 0-1 [facility] Blood urea nitrogen (BUN)/cr eatinine ratioOrdered By: Chente Conn on 04-03-2024 Urea nitrogen/Creatinine [Mass ratio] 52.6 mg/mg High 10-20 [facility] Carbon dioxide measurementOr dered By: Chente Conn on 04-03-2024 CO2 [Moles/Vol] 32.0 mmol/L 21.0-32.0 [facility] Chloride measurementOrdered By: Chente Conn on 04-03-2024 Chloride [Moles/Vol] 102 mmol/L 98-107 [facility] Eosinophil percentageOrdered By: Chente Conn on 04-03-2024 Eosinophils/100 WBC (Bld) 4.9 % 0-5 [facility] Erythrocyte distribution wid th ratioOrdered By: Chente Conn on 04-03-2024 Erythrocyte distribution width (RBC) [Ratio] 15.6 % High 11.6-14.6 [facility] Erythrocyte distribution wid th standard deviationOrdered By: Chente Conn on 04-03-2024 Erythrocyte distribution width (RBC) [Entitic vol] 46.3 fL High 35.1-43.9 [facility] Erythrocyte distribution width (RBC) [Ratio] 46.3 fl High 35.1-43.9 [facility] Estimated glomerular filtrat ion rate (GFR) AmericanOrdered By: Chente Conn on 04-03-2024 Estimated GFR (MDRD) Amer 641 mL/min >60 [facility] Comment on above: GFR Calc Glomerular filtration rate ( GFR) estimationOrdered By: Chente Conn on 04-03-2024 Estimated GFR (MDRD) Non-Af Amer 530 mL/min >60 [facility] Comment on above: Non- GFR Calc GFR/1.73 sq M.predicted among non-blacks MDRD (S/P/Bld) [Vol rate/Area] 530 mL/min/{1.73_m2} >60 [facility] Comment on above: Non- GFR Calc Glucose measurementOrdered B y: Chente Conn on 04-03-2024 Glucose [Mass/Vol] 87 mg/dL 74-106 [facility] Hematocrit Auto (Bld) [Volum e fraction]Ordered By: Chente Conn on 04-03-2024 Hematocrit (Bld) [Volume fraction] 30.9 % Low 40-54 [facility] Hemoglobin measurementOrdere d By: Chente Conn on 04-03-2024 Hemoglobin (Bld) [Mass/Vol] 9.8 g/dL Low 13.0-16.5 [facility] Immature granulocytes/100 WB C Auto (Bld)Ordered By: Chente Conn on 04-03-2024 Immature granulocytes/100 WBC (Bld) 0.200 % 0.0-0.9 [facility] Comment on above: IG% - Immature Granu locytes (promyelocytes, myelocytes and metamyelocytes) > 1% indicates that a LEFT SHIFT is Present. Lymphocytes Auto (Unsp spec) [#/Vol]Ordered By: Chente Conn on 04-03-2024 Lymphocytes (Bld) [#/Vol] 2.12 10*3/uL 0.83-4.5 1 [facility] Lymphocytes/100 WBC Auto (Un sp spec)Ordered By: Chente Conn on 04-03-2024 Lymphocytes/100 WBC (Bld) 41.2 % High 19-41 [facility] MCV (mean corpuscular volume ) determinationOrdered By: Chente Conn on 04-03-2024 MCV (RBC) [Entitic vol] 82.8 fL 80-94 [facility] Mean corpuscular hemoglobin (MCH) determinationOrdered By: Chente Conn on 04-03-2024 MCH (RBC) [Entitic mass] 26.3 pg Low 27.0-32.0 [facility] Mean corpuscular hemoglobin concentration (MCHC) determinationOrdered By: Chente Conn on 04-03-2024 MCHC (RBC) [Mass/Vol] 31.7 g/dL Low 32-36 [facility] Mean platelet volume determi nationOrdered By: Chente Conn on 04-03-2024 Platelet mean volume (Bld) [Entitic vol] 9.8 fL 6.2-12.0 [facility] Monocyte percentageOrdered B y: Chente Conn on 04-03-2024 Monocytes/100 WBC (Bld) 10.9 % High 0-10 [facility] Neutrophil percentageOrdered By: Chente Conn on 04-03-2024 Neutrophils/100 WBC (Bld) 42.6 % Low 47-70 [facility] Nucleated red blood cell per centageOrdered By: Chente Conn on 04-03-2024 Nucleated RBC/100 WBC (Bld) [Ratio] 0 % 0-5 [facility] Platelet countOrdered By: Areli Conn on 04-03-2024 Platelets (Bld) [#/Vol] 170 10*3/uL 150-450 [facility] Potassium measurementOrdered By: Chente Conn on 04-03-2024 Potassium [Moles/Vol] 3.8 mmol/L 3.5-5.1 [facility] RBC Auto (Bld) [#/Vol]Ordere d By: Chente Conn on 04-03-2024 RBC (Bld) [#/Vol] 3.73 10*6/uL Low 4.6-6.2 [facility] Serum anion gap measurementO rdered By: Chente Conn on 04-03-2024 Anion gap [Moles/Vol] 5 mmol/L 5-15 [facility] Serum or plasma calcium jacinta urement (mass/volume)Ordered By: Chente Conn on 04-03-2024 Calcium [Mass/Vol] 8.4 mg/dL Low 8.5-10.1 [facility] Serum or plasma creatinine m easurement (mass/volume)Ordered By: Chente Conn on 04-03-2024 Creatinine [Mass/Vol] 0.21 mg/dL Low 0.70-1.30 [facility] Comment on above: The validity of the calculated GFR & GFRAA in patients over 70 years has not been determined. Clinical correlation is essential. Serum or plasma urea nitroge n measurement (mass/volume)Ordered By: Chente Conn on 04-03-2024 Urea nitrogen [Mass/Vol] 11 mg/dL 7-18 [facility] Sodium levelOrdered By: Chente Conn on 04-03-2024 Sodium [Moles/Vol] 138 mmol/L 136-145 [facility] White blood cell (WBC) count Ordered By: Chente Conn on 04-03-2024 WBC (Bld) [#/Vol] 5.1 10*3/uL 4.4-11.0 [facility] Absolute lymphocyte countOrd ered By: Chente Conn on 03-08-2024 Lymphocytes Auto (Unsp spec) [#/Vol] 1.74 10*3/uL 0.83-4.51 [facility] Absolute neutrophil countOrd ered By: Chente Conn on 03-08-2024 Neutrophils (Bld) [#/Vol] 2.6 10*3/uL 2.0-7.7 [facility] Automated lymphocyte count a s percentage of total leukocytesOrdered By: Chente Conn on 03-08-2024 Lymphocytes/100 WBC Auto (Unsp spec) 33.7 % 19-41 [facility] Basophil percentageOrdered B y: Chente Conn on 03-08-2024 Basophils/100 WBC (Bld) 0.2 % 0-1 [facility] Blood urea nitrogen (BUN)/cr eatinine ratioOrdered By: Chente Conn on 03-08-2024 Urea nitrogen/Creatinine [Mass ratio] 53.2 mg/mg High 10-20 [facility] Carbon dioxide measurementOr dered By: Chente Conn on 03-08-2024 CO2 [Moles/Vol] 31.0 mmol/L 21.0-32.0 [facility] Chloride measurementOrdered By: Chente Conn on 03-08-2024 Chloride [Moles/Vol] 102 mmol/L 98-107 [facility] Eosinophil percentageOrdered By: Chente Conn on 03-08-2024 Eosinophils/100 WBC (Bld) 5.8 % High 0-5 [facility] Erythrocyte distribution wid th ratioOrdered By: Chente Conn on 03-08-2024 Erythrocyte distribution width (RBC) [Ratio] 14.4 % 11.6-14.6 [facility] Erythrocyte distribution wid th standard deviationOrdered By: Chente Conn on 03-08-2024 Erythrocyte distribution width (RBC) [Entitic vol] 43.7 fL 35.1-43.9 [facility] Erythrocyte distribution width (RBC) [Ratio] 43.7 fl 35.1-43.9 [facility] Estimated glomerular filtrat ion rate (GFR) AmericanOrdered By: Chente Conn on 03-08-2024 Estimated GFR (MDRD) Amer 454 mL/min >60 [facility] Comment on above: GFR Calc Glomerular filtration rate ( GFR) estimationOrdered By: Chente Conn on 03-08-2024 Estimated GFR (MDRD) Non-Af Amer 375 mL/min >60 [facility] Comment on above: Non- GFR Calc GFR/1.73 sq M.predicted among non-blacks MDRD (S/P/Bld) [Vol rate/Area] 375 mL/min/{1.73_m2} >60 [facility] Comment on above: Non- GFR Calc Glucose measurementOrdered B y: Chente Conn on 03-08-2024 Glucose [Mass/Vol] 112 mg/dL High 74-106 [facility] Comment on above: Fasting Glucose resu lt from 100 to 125 mg/dL suggests IMPAIRED HOMEOSTASIS per A.D.A. criteria. Hematocrit Auto (Bld) [Volum e fraction]Ordered By: Chente Conn on 03-08-2024 Hematocrit (Bld) [Volume fraction] 31.3 % Low 40-54 [facility] Hemoglobin measurementOrdere d By: Chente Conn on 03-08-2024 Hemoglobin (Bld) [Mass/Vol] 9.7 g/dL Low 13.0-16.5 [facility] Immature granulocytes/100 WB C Auto (Bld)Ordered By: Chente Conn on 03-08-2024 Immature granulocytes/100 WBC (Bld) 0.200 % 0.0-0.9 [facility] Comment on above: IG% - Immature Granu locytes (promyelocytes, myelocytes and metamyelocytes) > 1% indicates that a LEFT SHIFT is Present. Lymphocytes Auto (Unsp spec) [#/Vol]Ordered By: Chente Conn on 03-08-2024 Lymphocytes (Bld) [#/Vol] 1.74 10*3/uL 0.83-4.5 1 [facility] Lymphocytes/100 WBC Auto (Un sp spec)Ordered By: Chente Conn on 03-08-2024 Lymphocytes/100 WBC (Bld) 33.7 % 19-41 [facility] MCV (mean corpuscular volume ) determinationOrdered By: Chente Conn on 03-08-2024 MCV (RBC) [Entitic vol] 83.7 fL 80-94 [facility] Mean corpuscular hemoglobin (MCH) determinationOrdered By: Chente Conn on 03-08-2024 MCH (RBC) [Entitic mass] 25.9 pg Low 27.0-32.0 [facility] Mean corpuscular hemoglobin concentration (MCHC) determinationOrdered By: Chente Conn on 03-08-2024 MCHC (RBC) [Mass/Vol] 31.0 g/dL Low 32-36 [facility] Mean platelet volume determi nationOrdered By: Chente Conn on 03-08-2024 Platelet mean volume (Bld) [Entitic vol] 10.7 fL 6.2-12.0 [facility] Monocyte percentageOrdered B y: Chente Conn on 03-08-2024 Monocytes/100 WBC (Bld) 9.7 % 0-10 [facility] Neutrophil percentageOrdered By: Chente Conn on 03-08-2024 Neutrophils/100 WBC (Bld) 50.4 % 47-70 [facility] Nucleated red blood cell per centageOrdered By: Chente Conn on 03-08-2024 Nucleated RBC/100 WBC (Bld) [Ratio] 0 % 0-5 [facility] Platelet countOrdered By: Areli Conn on 03-08-2024 Platelets (Bld) [#/Vol] 177 10*3/uL 150-450 [facility] Potassium measurementOrdered By: Chente Conn on 03-08-2024 Potassium [Moles/Vol] 3.5 mmol/L 3.5-5.1 [facility] RBC Auto (Bld) [#/Vol]Ordere d By: Chente Conn on 03-08-2024 RBC (Bld) [#/Vol] 3.74 10*6/uL Low 4.6-6.2 [facility] Serum anion gap measurementO rdered By: Chente Conn on 03-08-2024 Anion gap [Moles/Vol] 5 mmol/L 5-15 [facility] Serum or plasma calcium jacinta urement (mass/volume)Ordered By: Chente Conn on 03-08-2024 Calcium [Mass/Vol] 8.3 mg/dL Low 8.5-10.1 [facility] Serum or plasma creatinine m easurement (mass/volume)Ordered By: Chente Conn on 03-08-2024 Creatinine [Mass/Vol] 0.28 mg/dL Low 0.70-1.30 [facility] Comment on above: The validity of the calculated GFR & GFRAA in patients over 70 years has not been determined. Clinical correlation is essential. Serum or plasma urea nitroge n measurement (mass/volume)Ordered By: Chente Conn on 03-08-2024 Urea nitrogen [Mass/Vol] 15 mg/dL 7-18 [facility] Sodium levelOrdered By: Chente Conn on 03-08-2024 Sodium [Moles/Vol] 139 mmol/L 136-145 [facility] White blood cell (WBC) count Ordered By: Chente Conn on 03-08-2024 WBC (Bld) [#/Vol] 5.2 10*3/uL 4.4-11.0 [facility] Absolute neutrophil countOrd ered By: Chente Conn on 02-24-2024 Neutrophils (Bld) [#/Vol] 2.3 10*3/uL 2.0-7.7 [facility] Basophil percentageOrdered B y: Chente Conn on 02-24-2024 Basophils/100 WBC (Bld) 0.2 % 0-1 [facility] Blood urea nitrogen (BUN)/cr eatinine ratioOrdered By: Chente Conn on 02-24-2024 Urea nitrogen/Creatinine [Mass ratio] 53.8 mg/mg High 10-20 [facility] Carbon dioxide measurementOr dered By: Chente Conn on 02-24-2024 CO2 [Moles/Vol] 29.0 mmol/L 21.0-32.0 [facility] Chloride measurementOrdered By: Chente Conn on 02-24-2024 Chloride [Moles/Vol] 104 mmol/L 98-107 [facility] Eosinophil percentageOrdered By: Chente Conn on 02-24-2024 Eosinophils/100 WBC (Bld) 5.8 % High 0-5 [facility] Erythrocyte distribution wid th ratioOrdered By: Chente Conn on 02-24-2024 Erythrocyte distribution width (RBC) [Ratio] 14.1 % 11.6-14.6 [facility] Erythrocyte distribution wid th standard deviationOrdered By: Chente Conn on 02-24-2024 Erythrocyte distribution width (RBC) [Entitic vol] 43.2 fL 35.1-43.9 [facility] Estimated glomerular filtrat ion rate (GFR) AmericanOrdered By: Chente Conn on 02-24-2024 Estimated GFR (MDRD) Amer 460 mL/min >60 [facility] Comment on above: GFR Calc Glomerular filtration rate ( GFR) estimationOrdered By: Chente Conn on 02-24-2024 Estimated GFR (MDRD) Non-Af Amer 380 mL/min >60 [facility] Comment on above: Non- GFR Calc Glucose measurementOrdered B y: Chente Conn on 02-24-2024 Glucose [Mass/Vol] 102 mg/dL 74-106 [facility] Comment on above: Fasting Glucose resu lt from 100 to 125 mg/dL suggests IMPAIRED HOMEOSTASIS per A.D.A. criteria. Hematocrit Auto (Bld) [Volum e fraction]Ordered By: Chente Conn on 02-24-2024 Hematocrit (Bld) [Volume fraction] 32.6 % Low 40-54 [facility] Hemoglobin measurementOrdere d By: Chente Conn on 02-24-2024 Hemoglobin (Bld) [Mass/Vol] 9.8 g/dL Low 13.0-16.5 [facility] Immature granulocytes/100 WB C Auto (Bld)Ordered By: Chente Conn on 02-24-2024 Immature granulocytes/100 WBC (Bld) 0.200 % 0.0-0.9 [facility] Comment on above: IG% - Immature Granu locytes (promyelocytes, myelocytes and metamyelocytes) > 1% indicates that a LEFT SHIFT is Present. Lymphocytes Auto (Unsp spec) [#/Vol]Ordered By: Chente Conn on 02-24-2024 Lymphocytes (Bld) [#/Vol] 1.93 10*3/uL 0.83-4.5 1 [facility] Lymphocytes/100 WBC Auto (Un sp spec)Ordered By: Chente Conn on 02-24-2024 Lymphocytes/100 WBC (Bld) 38.5 % 19-41 [facility] MCV (mean corpuscular volume ) determinationOrdered By: Chente Conn on 02-24-2024 MCV (RBC) [Entitic vol] 84.9 fL 80-94 [facility] Mean corpuscular hemoglobin (MCH) determinationOrdered By: Chente Conn on 02-24-2024 MCH (RBC) [Entitic mass] 25.5 pg Low 27.0-32.0 [facility] Mean corpuscular hemoglobin concentration (MCHC) determinationOrdered By: Chente Conn on 02-24-2024 MCHC (RBC) [Mass/Vol] 30.1 g/dL Low 32-36 [facility] Mean platelet volume determi nationOrdered By: Chente Conn on 02-24-2024 Platelet mean volume (Bld) [Entitic vol] 9.9 fL 6.2-12.0 [facility] Monocyte percentageOrdered B y: Chente Conn on 02-24-2024 Monocytes/100 WBC (Bld) 8.8 % 0-10 [facility] Neutrophil percentageOrdered By: Chente Conn on 02-24-2024 Neutrophils/100 WBC (Bld) 46.5 % Low 47-70 [facility] Nucleated red blood cell per centageOrdered By: Chente Conn on 02-24-2024 Nucleated RBC/100 WBC (Bld) [Ratio] 0 % 0-5 [facility] Platelet countOrdered By: Areli Conn on 02-24-2024 Platelets (Bld) [#/Vol] 209 10*3/uL 150-450 [facility] Potassium measurementOrdered By: Chente Conn on 02-24-2024 Potassium [Moles/Vol] 3.7 mmol/L 3.5-5.1 [facility] RBC Auto (Bld) [#/Vol]Ordere d By: Chente Conn on 02-24-2024 RBC (Bld) [#/Vol] 3.84 10*6/uL Low 4.6-6.2 [facility] Serum anion gap measurementO rdered By: Chente Conn on 02-24-2024 Anion gap [Moles/Vol] 6 mmol/L 5-15 [facility] Serum or plasma calcium jacinta urement (mass/volume)Ordered By: Chente Conn on 02-24-2024 Calcium [Mass/Vol] 8.2 mg/dL Low 8.5-10.1 [facility] Serum or plasma creatinine m easurement (mass/volume)Ordered By: Chente Conn on 02-24-2024 Creatinine [Mass/Vol] 0.28 mg/dL Low 0.70-1.30 [facility] Comment on above: The validity of the calculated GFR & GFRAA in patients over 70 years has not been determined. Clinical correlation is essential. Serum or plasma urea nitroge n measurement (mass/volume)Ordered By: Chente Conn on 02-24-2024 Urea nitrogen [Mass/Vol] 15 mg/dL 7-18 [facility] Sodium levelOrdered By: Chente Conn on 02-24-2024 Sodium [Moles/Vol] 138 mmol/L 136-145 [facility] White blood cell (WBC) count Ordered By: Chente Conn on 02-24-2024 WBC (Bld) [#/Vol] 5.0 10*3/uL 4.4-11.0 [facility] Absolute neutrophil countOrd ered By: Racquel Moss on 2024 Neutrophils (Bld) [#/Vol] 5.0 10*3/uL 2.0-7.7 [facility] Basophil percentageOrdered B y: Racquel Moss on 2024 Basophils/100 WBC (Bld) 0.2 % 0-1 [facility] Blood cultureOrdered By: Jessi Moss on 2024 Bacteria identified Cx Nom (Bld) No growth in 5 days. [facility] Blood urea nitrogen (BUN)/cr eatinine ratioOrdered By: Racquel Moss on 2024 Urea nitrogen/Creatinine [Mass ratio] 24.2 mg/mg High 10-20 [facility] C-reactive protein measureme nt by high sensitivity methodOrdered By: Racquel Moss on 2024 C-Reactive Protein Extended Range 73.50 mg/L High 0.0-3.0 [facility] Comment on above: C-Reactive Protein ( CRP) provides useful information for thediagnosis, therapy and monitoring of inflammatory processesand associated diseases. For the evaluation of Relative Riskfor Cardiovascular Disease, a High Sensitivity CRP (HSCRP)should be ordered. Carbon dioxide measurementOr dered By: Racquel Moss on 2024 CO2 [Moles/Vol] 30.0 mmol/L 21.0-32.0 [facility] Chloride measurementOrdered By: Racquel Moss on 2024 Chloride [Moles/Vol] 100 mmol/L 98-107 [facility] Eosinophil percentageOrdered By: Racquel Moss on 2024 Eosinophils/100 WBC (Bld) 0.6 % 0-5 [facility] Erythrocyte distribution wid th ratioOrdered By: Remus Moss on 2024 Erythrocyte distribution width (RBC) [Ratio] 13.8 % 11.6-14.6 [facility] Erythrocyte distribution wid th standard deviationOrdered By: Remus Moss on 2024 Erythrocyte distribution width (RBC) [Entitic vol] 42.7 fL 35.1-43.9 [facility] Erythrocyte sedimentation ra teOrdered By: Remus Unggilles on 2024 ESR (Bld) [Velocity] 47 mm/h High 0-20 [facility] Estimated glomerular filtrat ion rate (GFR) AmericanOrdered By: Remus Unggilles on 2024 Estimated GFR (MDRD) Amer 379 mL/min >60 [facility] Comment on above: GFR Calc Estimation of creatinine poly aranceOrdered By: Racquel Moss on 2024 Estimated Creatinine Clearance Calc 265.33 ml/min [facility] Glomerular filtration rate ( GFR) estimationOrdered By: Racquel Moss on 2024 Estimated GFR (MDRD) Non-Af Amer 313 mL/min >60 [facility] Comment on above: Non- GFR Calc Glucose measurementOrdered B y: Racquel Moss on 2024 Glucose [Mass/Vol] 117 mg/dL High 74-106 [facility] Comment on above: Fasting Glucose resu lt from 100 to 125 mg/dL suggests IMPAIRED HOMEOSTASIS per A.D.A. criteria. Hematocrit Auto (Bld) [Volum e fraction]Ordered By: Racquel Moss on 2024 Hematocrit (Bld) [Volume fraction] 33.5 % Low 40-54 [facility] Hemoglobin measurementOrdere d By: Racquel Moss on 2024 Hemoglobin (Bld) [Mass/Vol] 10.8 g/dL Low 13.0-16.5 [facility] Immature granulocytes/100 WB C Auto (Bld)Ordered By: Racquel Moss on 2024 Immature granulocytes/100 WBC (Bld) 0.600 % 0.0-0.9 [facility] Comment on above: IG% - Immature Granu locytes (promyelocytes, myelocytes and metamyelocytes) > 1% indicates that a LEFT SHIFT is Present. Lactic acid measurementOrder ed By: Racquel Moss on 2024 Lactate [Moles/Vol] 2.0 mmol/L 0.4-2.0 [facility] Comment on above: Critical Result(s) C alled at: 18:05:46 2024 by: SHONDA REAVES. Results read back by Lakesha Steven Lymphocytes Auto (Unsp spec) [#/Vol]Ordered By: Racquel Moss on 2024 Lymphocytes (Bld) [#/Vol] 0.82 10*3/uL Low 0.83-4.5 1 [facility] Lymphocytes/100 WBC Auto (Un sp spec)Ordered By: Racquel Moss on 2024 Lymphocytes/100 WBC (Bld) 12.4 % Low 19-41 [facility] MCV (mean corpuscular volume ) determinationOrdered By: Remus Moss on 2024 MCV (RBC) [Entitic vol] 84.6 fL 80-94 [facility] Mean corpuscular hemoglobin (MCH) determinationOrdered By: Rem Unggilles on 2024 MCH (RBC) [Entitic mass] 27.3 pg 27.0-32.0 [facility] Mean corpuscular hemoglobin concentration (MCHC) determinationOrdered By: Rem Unggilles on 2024 MCHC (RBC) [Mass/Vol] 32.2 g/dL 32-36 [facility] Mean platelet volume determi nationOrdered By: Racquel Moss on 2024 Platelet mean volume (Bld) [Entitic vol] 10.0 fL 6.2-12.0 [facility] Monocyte percentageOrdered B y: Remus Moss on 2024 Monocytes/100 WBC (Bld) 11.2 % High 0-10 [facility] Neutrophil percentageOrdered By: Remus Moss on 2024 Neutrophils/100 WBC (Bld) 75.0 % High 47-70 [facility] Nucleated red blood cell per centageOrdered By: Racquel Moss on 2024 Nucleated RBC/100 WBC (Bld) [Ratio] 0 % 0-5 [facility] Platelet countOrdered By: Carmen Moss on 2024 Platelets (Bld) [#/Vol] 113 10*3/uL Low 150-450 [facility] Potassium measurementOrdered By: Racquel Moss on 2024 Potassium [Moles/Vol] 4.0 mmol/L 3.5-5.1 [facility] RBC Auto (Bld) [#/Vol]Ordere d By: Racquel Unggilles on 2024 RBC (Bld) [#/Vol] 3.96 10*6/uL Low 4.6-6.2 [facility] Serum anion gap measurementO rdered By: Racquel Moss on 2024 Anion gap [Moles/Vol] 4 mmol/L Low 5-15 [facility] Serum or plasma calcium jacinta urement (mass/volume)Ordered By: Racquel Moss on 2024 Calcium [Mass/Vol] 8.9 mg/dL 8.5-10.1 [facility] Serum or plasma creatinine m easurement (mass/volume)Ordered By: Racquel Moss on 2024 Creatinine [Mass/Vol] 0.33 mg/dL Low 0.70-1.30 [facility] Comment on above: The validity of the calculated GFR & GFRAA in patients over 70 years has not been determined. Clinical correlation is essential. Serum or plasma urea nitroge n measurement (mass/volume)Ordered By: Racquel Moss on 2024 Urea nitrogen [Mass/Vol] 8 mg/dL 7-18 [facility] Sodium levelOrdered By: Vinny Moss on 2024 Sodium [Moles/Vol] 135 mmol/L Low 136-145 [facility] White blood cell (WBC) count Ordered By: Racquel Moss on 2024 WBC (Bld) [#/Vol] 6.6 10*3/uL 4.4-11.0 [facility] Absolute neutrophil countOrd ered By: Chente Conn on 01-27-2024 Neutrophils (Bld) [#/Vol] 2.2 10*3/uL 2.0-7.7 [facility] Basophil percentageOrdered B y: Chente Conn on 01-27-2024 Basophils/100 WBC (Bld) 0.5 % 0-1 [facility] Blood urea nitrogen (BUN)/cr eatinine ratioOrdered By: Chente Conn on 01-27-2024 Urea nitrogen/Creatinine [Mass ratio] 43.3 mg/mg High 10-20 [facility] Carbon dioxide measurementOr dered By: Chente Conn on 01-27-2024 CO2 [Moles/Vol] 30.0 mmol/L 21.0-32.0 [facility] Chloride measurementOrdered By: Chente Conn on 01-27-2024 Chloride [Moles/Vol] 103 mmol/L 98-107 [facility] Eosinophil percentageOrdered By: Chente Conn on 01-27-2024 Eosinophils/100 WBC (Bld) 4.7 % 0-5 [facility] Erythrocyte distribution wid th ratioOrdered By: Chente Conn on 01-27-2024 Erythrocyte distribution width (RBC) [Ratio] 14.2 % 11.6-14.6 [facility] Erythrocyte distribution wid th standard deviationOrdered By: Chente Conn on 01-27-2024 Erythrocyte distribution width (RBC) [Entitic vol] 44.8 fL High 35.1-43.9 [facility] Estimated glomerular filtrat ion rate (GFR) AmericanOrdered By: Chente Conn on 01-27-2024 Estimated GFR (MDRD) Amer 388 mL/min >60 [facility] Comment on above: GFR Calc Glomerular filtration rate ( GFR) estimationOrdered By: Chente Conn on 01-27-2024 Estimated GFR (MDRD) Non-Af Amer 321 mL/min >60 [facility] Comment on above: Non- GFR Calc Glucose measurementOrdered B y: Chente Conn on 01-27-2024 Glucose [Mass/Vol] 99 mg/dL 74-106 [facility] Hematocrit Auto (Bld) [Volum e fraction]Ordered By: Chente Conn on 01-27-2024 Hematocrit (Bld) [Volume fraction] 33.6 % Low 40-54 [facility] Hemoglobin measurementOrdere d By: Chente Conn on 01-27-2024 Hemoglobin (Bld) [Mass/Vol] 10.5 g/dL Low 13.0-16.5 [facility] Immature granulocytes/100 WB C Auto (Bld)Ordered By: Chente Conn on 01-27-2024 Immature granulocytes/100 WBC (Bld) 0.000 % 0.0-0.9 [facility] Comment on above: IG% - Immature Granu locytes (promyelocytes, myelocytes and metamyelocytes) > 1% indicates that a LEFT SHIFT is Present. Lymphocytes Auto (Unsp spec) [#/Vol]Ordered By: Chente Conn on 01-27-2024 Lymphocytes (Bld) [#/Vol] 1.16 10*3/uL 0.83-4.5 1 [facility] Lymphocytes/100 WBC Auto (Un sp spec)Ordered By: Chente Conn on 01-27-2024 Lymphocytes/100 WBC (Bld) 28.9 % 19-41 [facility] MCV (mean corpuscular volume ) determinationOrdered By: Chente Conn on 01-27-2024 MCV (RBC) [Entitic vol] 85.9 fL 80-94 [facility] Mean corpuscular hemoglobin (MCH) determinationOrdered By: Chente Conn on 01-27-2024 MCH (RBC) [Entitic mass] 26.9 pg Low 27.0-32.0 [facility] Mean corpuscular hemoglobin concentration (MCHC) determinationOrdered By: Chente Conn on 01-27-2024 MCHC (RBC) [Mass/Vol] 31.3 g/dL Low 32-36 [facility] Mean platelet volume determi nationOrdered By: Chente Conn on 01-27-2024 Platelet mean volume (Bld) [Entitic vol] 10.3 fL 6.2-12.0 [facility] Monocyte percentageOrdered B y: Chente Conn on 01-27-2024 Monocytes/100 WBC (Bld) 10.2 % High 0-10 [facility] Neutrophil percentageOrdered By: Chente Conn on 01-27-2024 Neutrophils/100 WBC (Bld) 55.7 % 47-70 [facility] Nucleated red blood cell per centageOrdered By: Chente Conn on 01-27-2024 Nucleated RBC/100 WBC (Bld) [Ratio] 0 % 0-5 [facility] Platelet countOrdered By: Areli Conn on 01-27-2024 Platelets (Bld) [#/Vol] 161 10*3/uL 150-450 [facility] Potassium measurementOrdered By: Chente Conn on 01-27-2024 Potassium [Moles/Vol] 4.0 mmol/L 3.5-5.1 [facility] RBC Auto (Bld) [#/Vol]Ordere d By: Chente Conn on 01-27-2024 RBC (Bld) [#/Vol] 3.91 10*6/uL Low 4.6-6.2 [facility] Serum anion gap measurementO rdered By: Chente Conn on 01-27-2024 Anion gap [Moles/Vol] 7 mmol/L 5-15 [facility] Serum or plasma calcium jacinta urement (mass/volume)Ordered By: Chente Conn on 01-27-2024 Calcium [Mass/Vol] 9.0 mg/dL 8.5-10.1 [facility] Serum or plasma creatinine m easurement (mass/volume)Ordered By: Chente Conn on 01-27-2024 Creatinine [Mass/Vol] 0.32 mg/dL Low 0.70-1.30 [facility] Comment on above: The validity of the calculated GFR & GFRAA in patients over 70 years has not been determined. Clinical correlation is essential. Serum or plasma urea nitroge n measurement (mass/volume)Ordered By: Chente Conn on 01-27-2024 Urea nitrogen [Mass/Vol] 14 mg/dL 7-18 [facility] Sodium levelOrdered By: Chente Conn on 01-27-2024 Sodium [Moles/Vol] 140 mmol/L 136-145 [facility] White blood cell (WBC) count Ordered By: Chente Conn on 01-27-2024 WBC (Bld) [#/Vol] 4.0 10*3/uL Low 4.4-11.0 [facility] Absolute lymphocyte countOrd ered By: Torey Huffman on 06-14-2023 Lymphocytes Auto (Unsp spec) [#/Vol] 2.38 10*3/uL 0.83-4.51 [facility] Automated lymphocyte count a s percentage of total leukocytesOrdered By: Torey Huffman on 06-14-2023 Lymphocytes/100 WBC Auto (Unsp spec) 35.4 % 19-41 [facility] Basophil percentageOrdered B y: Torey Huffman on 06-14-2023 Basophils/100 WBC (Bld) 0.3 % 0-1 [facility] Chloride [Moles/Vol] 104 mmol/L 98-107 [facility] Eosinophils/100 WBC (Bld) 4.3 % 0-5 [facility] Glucose [Mass/Vol] 101 mg/dL 74-106 [facility] Comment on above: Fasting Glucose resu lt from 100 to 125 mg/dL suggests IMPAIRED HOMEOSTASIS per A.D.A. criteria. Hemoglobin (Bld) [Mass/Vol] 11.2 g/dL 13.0-16.5 [facility] Monocytes/100 WBC (Bld) 9.4 % 0-10 [facility] Neutrophils (Bld) [#/Vol] 3.4 10*3/uL 2.0-7.7 [facility] Neutrophils/100 WBC (Bld) 50.5 % 47-70 [facility] Potassium [Moles/Vol] 3.7 mmol/L 3.5-5.1 [facility] Sodium [Moles/Vol] 139 mmol/L 136-145 [facility] WBC (Bld) [#/Vol] 6.7 10*3/uL 4.4-11.0 [facility] Determination of erythrocyte mean corpuscular volume (MCV)Ordered By: Torey Huffman on 06-14-2023 MCV (RBC) [Entitic vol] 83.3 fL 80-94 [facility] Erythrocyte distribution wid th ratioOrdered By: Torey Huffman on 06-14-2023 Erythrocyte distribution width (RBC) [Ratio] 14.7 % 11.6-14.6 [facility] Erythrocyte distribution wid th standard deviationOrdered By: Torey Huffman on 06-14-2023 Erythrocyte distribution width (RBC) [Entitic vol] 44.5 fL 35.1-43.9 [facility] Hematocrit Auto (Bld) [Volum e fraction]Ordered By: Torey Huffman on 06-14-2023 Hematocrit (Bld) [Volume fraction] 34.4 % 40-54 [facility] Immature granulocytes/100 WB C Auto (Bld)Ordered By: Torey Huffman on 06-14-2023 Immature granulocytes/100 WBC (Bld) 0.100 % 0.0-0.9 [facility] Comment on above: IG% - Immature Granu locytes (promyelocytes, myelocytes and metamyelocytes) > 1% indicates that a LEFT SHIFT is Present. Laboratory - Chemistry and C hemistry - challengeOrdered By: Torey Huffman on 06-14-2023 CO2 [Moles/Vol] 31.0 mmol/L 21.0-32.0 [facility] Urea nitrogen/Creatinine [Mass ratio] 43.2 mg/mg 10-20 [facility] Laboratory - Hematology and Cell countsOrdered By: Torey Huffman on 06-14-2023 MCH (RBC) [Entitic mass] 27.1 pg 27.0-32.0 [facility] MCHC (RBC) [Mass/Vol] 32.6 g/dL 32-36 [facility] Nucleated RBC/100 WBC (Bld) [Ratio] 0 % 0-5 [facility] Platelet mean volume (Bld) [Entitic vol] 10.4 fL 6.2-12.0 [facility] Platelets (Bld) [#/Vol] 178 10*3/uL 150-450 [facility] No Panel InformationOrdered By: Torey Huffman on 06-14-2023 Estimated GFR (MDRD) Amer 423 mL/min >60 [facility] Comment on above: GFR Calc Estimated GFR (MDRD) Non-Af Amer 349 mL/min >60 [facility] Comment on above: Non- GFR Calc RBC Auto (Bld) [#/Vol]Ordere d By: Torey Huffman on 06-14-2023 RBC (Bld) [#/Vol] 4.13 10*6/uL 4.6-6.2 [facility] Serum or plasma calcium jacinta urement (mass/volume)Ordered By: Torey Huffman on 06-14-2023 Calcium [Mass/Vol] 8.3 mg/dL 8.5-10.1 [facility] Serum or plasma creatinine m easurement (mass/volume)Ordered By: Torey Huffman on 06-14-2023 Creatinine [Mass/Vol] 0.30 mg/dL 0.70-1.30 [facility] Comment on above: The validity of the calculated GFR & GFRAA in patients over 70 years has not been determined. Clinical correlation is essential. Serum or plasma urea nitroge n measurement (mass/volume)Ordered By: Torey Huffman on 06-14-2023 Urea nitrogen [Mass/Vol] 13 mg/dL 7-18 [facility] Thin prep Papanicolaou smear with manual screeningOrdered By: Torey Huffman on 06-14-2023 Thin prep Papanicolaou smear with manual screening 4 5-15 [facility] Absolute lymphocyte countOrd ered By: Torey Huffman on 05-17-2023 Lymphocytes Auto (Unsp spec) [#/Vol] 2.30 10*3/uL 0.83-4.51 [facility] Automated lymphocyte count a s percentage of total leukocytesOrdered By: Torey Huffman on 05-17-2023 Lymphocytes/100 WBC Auto (Unsp spec) 36.7 % 19-41 [facility] Basophil percentageOrdered B y: Torey Huffman on 05-17-2023 Basophils/100 WBC (Bld) 0.3 % 0-1 [facility] Chloride [Moles/Vol] 104 mmol/L 98-107 [facility] Eosinophils/100 WBC (Bld) 4.5 % 0-5 [facility] Glucose [Mass/Vol] 88 mg/dL 74-106 [facility] Hemoglobin (Bld) [Mass/Vol] 11.2 g/dL 13.0-16.5 [facility] Monocytes/100 WBC (Bld) 8.1 % 0-10 [facility] Neutrophils (Bld) [#/Vol] 3.1 10*3/uL 2.0-7.7 [facility] Neutrophils/100 WBC (Bld) 50.1 % 47-70 [facility] Potassium [Moles/Vol] 4.0 mmol/L 3.5-5.1 [facility] Sodium [Moles/Vol] 139 mmol/L 136-145 [facility] WBC (Bld) [#/Vol] 6.3 10*3/uL 4.4-11.0 [facility] Determination of erythrocyte mean corpuscular volume (MCV)Ordered By: Torey Huffman on 05-17-2023 MCV (RBC) [Entitic vol] 84.5 fL 80-94 [facility] Erythrocyte distribution wid th ratioOrdered By: Torey Huffman on 05-17-2023 Erythrocyte distribution width (RBC) [Ratio] 14.6 % 11.6-14.6 [facility] Erythrocyte distribution wid th standard deviationOrdered By: Torey Huffman on 05-17-2023 Erythrocyte distribution width (RBC) [Entitic vol] 45.0 fL 35.1-43.9 [facility] Hematocrit Auto (Bld) [Volum e fraction]Ordered By: Torey Huffman on 05-17-2023 Hematocrit (Bld) [Volume fraction] 36.6 % 40-54 [facility] Immature granulocytes/100 WB C Auto (Bld)Ordered By: Torey Huffman on 05-17-2023 Immature granulocytes/100 WBC (Bld) 0.300 % 0.0-0.9 [facility] Comment on above: IG% - Immature Granu locytes (promyelocytes, myelocytes and metamyelocytes) > 1% indicates that a LEFT SHIFT is Present. Laboratory - Chemistry and C hemistry - challengeOrdered By: Torey Huffman on 05-17-2023 CO2 [Moles/Vol] 31.0 mmol/L 21.0-32.0 [facility] Urea nitrogen/Creatinine [Mass ratio] 45.9 mg/mg 10-20 [facility] Laboratory - Hematology and Cell countsOrdered By: Torey Huffman on 05-17-2023 MCH (RBC) [Entitic mass] 25.9 pg 27.0-32.0 [facility] MCHC (RBC) [Mass/Vol] 30.6 g/dL 32-36 [facility] Nucleated RBC/100 WBC (Bld) [Ratio] 0 % 0-5 [facility] Platelet mean volume (Bld) [Entitic vol] 10.8 fL 6.2-12.0 [facility] Platelets (Bld) [#/Vol] 206 10*3/uL 150-450 [facility] No Panel InformationOrdered By: Torey Huffman on 05-17-2023 Estimated GFR (MDRD) Amer 416 mL/min >60 [facility] Comment on above: GFR Calc Estimated GFR (MDRD) Non-Af Amer 344 mL/min >60 [facility] Comment on above: Non- GFR Calc RBC Auto (Bld) [#/Vol]Ordere d By: Torey Huffman on 05-17-2023 RBC (Bld) [#/Vol] 4.33 10*6/uL 4.6-6.2 [facility] Serum or plasma calcium jacinta urement (mass/volume)Ordered By: Torey Huffman on 05-17-2023 Calcium [Mass/Vol] 8.6 mg/dL 8.5-10.1 [facility] Serum or plasma creatinine m easurement (mass/volume)Ordered By: Torey Huffman on 05-17-2023 Creatinine [Mass/Vol] 0.30 mg/dL 0.70-1.30 [facility] Comment on above: The validity of the calculated GFR & GFRAA in patients over 70 years has not been determined. Clinical correlation is essential. Serum or plasma urea nitroge n measurement (mass/volume)Ordered By: Torey Huffman on 05-17-2023 Urea nitrogen [Mass/Vol] 14 mg/dL 7-18 [facility] Thin prep Papanicolaou smear with manual screeningOrdered By: Torey Huffman on 05-17-2023 Thin prep Papanicolaou smear with manual screening 4 5-15 [facility] Absolute lymphocyte countOrd ered By: Torey Huffman on 04-19-2023 Lymphocytes Auto (Unsp spec) [#/Vol] 2.37 10*3/uL 0.83-4.51 [facility] Automated lymphocyte count a s percentage of total leukocytesOrdered By: Torey Huffman on 04-19-2023 Lymphocytes/100 WBC Auto (Unsp spec) 31.8 % 19-41 [facility] Basophil percentageOrdered B y: Torey Huffman on 04-19-2023 Basophils/100 WBC (Bld) 0.4 % 0-1 [facility] Chloride [Moles/Vol] 105 mmol/L 98-107 [facility] Eosinophils/100 WBC (Bld) 5.0 % 0-5 [facility] Glucose [Mass/Vol] 102 mg/dL 74-106 [facility] Comment on above: Fasting Glucose resu lt from 100 to 125 mg/dL suggests IMPAIRED HOMEOSTASIS per A.D.A. criteria. Hemoglobin (Bld) [Mass/Vol] 11.4 g/dL 13.0-16.5 [facility] Monocytes/100 WBC (Bld) 9.4 % 0-10 [facility] Neutrophils (Bld) [#/Vol] 4.0 10*3/uL 2.0-7.7 [facility] Neutrophils/100 WBC (Bld) 53.0 % 47-70 [facility] Potassium [Moles/Vol] 4.1 mmol/L 3.5-5.1 [facility] Sodium [Moles/Vol] 138 mmol/L 136-145 [facility] WBC (Bld) [#/Vol] 7.5 10*3/uL 4.4-11.0 [facility] Determination of erythrocyte mean corpuscular volume (MCV)Ordered By: Torey Huffman on 04-19-2023 MCV (RBC) [Entitic vol] 84.7 fL 80-94 [facility] Erythrocyte distribution wid th ratioOrdered By: Torey Huffman on 04-19-2023 Erythrocyte distribution width (RBC) [Ratio] 14.8 % 11.6-14.6 [facility] Erythrocyte distribution wid th standard deviationOrdered By: Torey Huffman on 04-19-2023 Erythrocyte distribution width (RBC) [Entitic vol] 45.9 fL 35.1-43.9 [facility] Hematocrit Auto (Bld) [Volum e fraction]Ordered By: Torey Huffman on 04-19-2023 Hematocrit (Bld) [Volume fraction] 37.2 % 40-54 [facility] Immature granulocytes/100 WB C Auto (Bld)Ordered By: Torey Huffman on 04-19-2023 Immature granulocytes/100 WBC (Bld) 0.400 % 0.0-0.9 [facility] Comment on above: IG% - Immature Granu locytes (promyelocytes, myelocytes and metamyelocytes) > 1% indicates that a LEFT SHIFT is Present. Laboratory - Chemistry and C hemistry - challengeOrdered By: Torey Huffman on 04-19-2023 CO2 [Moles/Vol] 28.0 mmol/L 21.0-32.0 [facility] Urea nitrogen/Creatinine [Mass ratio] 58.3 mg/mg 10-20 [facility] Laboratory - Hematology and Cell countsOrdered By: Torey Huffman on 04-19-2023 MCH (RBC) [Entitic mass] 26.0 pg 27.0-32.0 [facility] MCHC (RBC) [Mass/Vol] 30.6 g/dL 32-36 [facility] Nucleated RBC/100 WBC (Bld) [Ratio] 0 % 0-5 [facility] Platelet mean volume (Bld) [Entitic vol] 10.4 fL 6.2-12.0 [facility] Platelets (Bld) [#/Vol] 198 10*3/uL 150-450 [facility] No Panel InformationOrdered By: Torey Huffman on 04-19-2023 Estimated GFR (MDRD) Amer 410 mL/min >60 [facility] Comment on above: GFR Calc Estimated GFR (MDRD) Non-Af Amer 339 mL/min >60 [facility] Comment on above: Non- GFR Calc RBC Auto (Bld) [#/Vol]Ordere d By: Torey Huffman on 04-19-2023 RBC (Bld) [#/Vol] 4.39 10*6/uL 4.6-6.2 [facility] Serum or plasma calcium jacinta urement (mass/volume)Ordered By: Torey Huffman on 04-19-2023 Calcium [Mass/Vol] 8.8 mg/dL 8.5-10.1 [facility] Serum or plasma creatinine m easurement (mass/volume)Ordered By: Torey Huffman on 04-19-2023 Creatinine [Mass/Vol] 0.31 mg/dL 0.70-1.30 [facility] Comment on above: The validity of the calculated GFR & GFRAA in patients over 70 years has not been determined. Clinical correlation is essential. Serum or plasma urea nitroge n measurement (mass/volume)Ordered By: Torey Huffman on 04-19-2023 Urea nitrogen [Mass/Vol] 18 mg/dL 7-18 [facility] Thin prep Papanicolaou smear with manual screeningOrdered By: Torey Huffman on 04-19-2023 Thin prep Papanicolaou smear with manual screening 5 5-15 [facility] Absolute lymphocyte countOrd ered By: Anthony Russell on 04-13-2023 Lymphocytes Auto (Unsp spec) [#/Vol] 3.45 10*3/uL 0.83-4.51 [facility] Activated partial thrombopla stin time (aPTT) in platelet poor plasma by coagulation aOrdered By: Anthony Russell on 04-13-2023 aPTT Coag (PPP) [Time] 25.7 s 24.1-36.[address] [facility] Automated lymphocyte count a s percentage of total leukocytesOrdered By: Anthony Russell on 04-13-2023 Lymphocytes/100 WBC Auto (Unsp spec) 43.5 % 19-41 [facility] Basophil percentageOrdered B y: Anthony Russell on 04-13-2023 Basophils/100 WBC (Bld) 0.5 % 0-1 [facility] Chloride [Moles/Vol] 103 mmol/L 98-107 [facility] Eosinophils/100 WBC (Bld) 3.7 % 0-5 [facility] Glucose [Mass/Vol] 116 mg/dL 74-106 [facility] Comment on above: Fasting Glucose resu lt from 100 to 125 mg/dL suggests IMPAIRED HOMEOSTASIS per A.D.A. criteria. Hemoglobin (Bld) [Mass/Vol] 12.4 g/dL 13.0-16.5 [facility] Monocytes/100 WBC (Bld) 7.8 % 0-10 [facility] Neutrophils (Bld) [#/Vol] 3.5 10*3/uL 2.0-7.7 [facility] Neutrophils/100 WBC (Bld) 44.2 % 47-70 [facility] Potassium [Moles/Vol] 4.0 mmol/L 3.5-5.1 [facility] Sodium [Moles/Vol] 137 mmol/L 136-145 [facility] WBC (Bld) [#/Vol] 7.9 10*3/uL 4.4-11.0 [facility] Determination of erythrocyte mean corpuscular volume (MCV)Ordered By: Anthony Russell on 04-13-2023 MCV (RBC) [Entitic vol] 82.9 fL 80-94 [facility] Erythrocyte distribution wid th ratioOrdered By: Anthony Russell on 04-13-2023 Erythrocyte distribution width (RBC) [Ratio] 14.9 % 11.6-14.6 [facility] Erythrocyte distribution wid th standard deviationOrdered By: Anthony Russell on 04-13-2023 Erythrocyte distribution width (RBC) [Entitic vol] 44.8 fL 35.1-43.9 [facility] Hematocrit Auto (Bld) [Volum e fraction]Ordered By: Anthony Russell on 04-13-2023 Hematocrit (Bld) [Volume fraction] 40.2 % 40-54 [facility] Immature granulocytes/100 WB C Auto (Bld)Ordered By: Anthony Russell on 04-13-2023 Immature granulocytes/100 WBC (Bld) 0.300 % 0.0-0.9 [facility] Comment on above: IG% - Immature Granu locytes (promyelocytes, myelocytes and metamyelocytes) > 1% indicates that a LEFT SHIFT is Present. Laboratory - Chemistry and C hemistry - challengeOrdered By: Anthony Russell on 04-13-2023 CO2 [Moles/Vol] 24.0 mmol/L 21.0-32.0 [facility] Urea nitrogen/Creatinine [Mass ratio] 39.7 mg/mg 10-20 [facility] Laboratory - CoagulationOrde red By: Anthony Russell on 04-13-2023 INR Coag (Bld) [Relative time] 1.0 {INR} [facility] PT Coag (PPP) [Time] 13.3 s 11.7-14.9 [facility] Laboratory - Hematology and Cell countsOrdered By: Anthony Russell on 04-13-2023 MCH (RBC) [Entitic mass] 25.6 pg 27.0-32.0 [facility] MCHC (RBC) [Mass/Vol] 30.8 g/dL 32-36 [facility] Nucleated RBC/100 WBC (Bld) [Ratio] 0 % 0-5 [facility] Platelet mean volume (Bld) [Entitic vol] 10.2 fL 6.2-12.0 [facility] Platelets (Bld) [#/Vol] 216 10*3/uL 150-450 [facility] No Panel InformationOrdered By: Anthony Russell on 04-13-2023 D-Dimer Quantitative (PE/DVT) < 0.27 FEU/ug/m 0.27-0.49 [facility] Comment on above: NORMAL D-Dimer level (<0.50) indicates no DVT or PE. Estimated Creatinine Clearance Calc 176.92 ml/min [facility] Estimated GFR (MDRD) Amer 248 mL/min >60 [facility] Comment on above: GFR Calc Estimated GFR (MDRD) Non-Af Amer 205 mL/min >60 [facility] Comment on above: Non- GFR Calc Troponin I High Sensitivity < 3 pg/mL 3.0-78.0 [facility] Comment on above: Please Note: New Suha t Units and Gender Specific Reference Ranges. For more information see Policy Stat Procedure [place] High Sensitivity Troponin (TNIH) and attachments. RBC Auto (Bld) [#/Vol]Ordere d By: Anthony Russell on 04-13-2023 RBC (Bld) [#/Vol] 4.85 10*6/uL 4.6-6.2 [facility] Serum or plasma calcium jacinta urement (mass/volume)Ordered By: Anthony Russell on 04-13-2023 Calcium [Mass/Vol] 9.2 mg/dL 8.5-10.1 [facility] Serum or plasma creatinine m easurement (mass/volume)Ordered By: Anthony Russell on 04-13-2023 Creatinine [Mass/Vol] 0.48 mg/dL 0.70-1.30 [facility] Comment on above: The validity of the calculated GFR & GFRAA in patients over 70 years has not been determined. Clinical correlation is essential. Serum or plasma urea nitroge n measurement (mass/volume)Ordered By: Anthony Russell on 04-13-2023 Urea nitrogen [Mass/Vol] 19 mg/dL 7-18 [facility] Thin prep Papanicolaou smear with manual screeningOrdered By: Anthony Russell on 04-13-2023 Thin prep Papanicolaou smear with manual screening 10 5-15 [facility] Absolute lymphocyte countOrd ered By: Lucia Dillard on 03-24-2023 Lymphocytes Auto (Unsp spec) [#/Vol] 1.76 10*3/uL 0.83-4.51 [facility] Automated lymphocyte count a s percentage of total leukocytesOrdered By: Lucia Dillard on 03-24-2023 Lymphocytes/100 WBC Auto (Unsp spec) 25.6 % 19-41 [facility] Basophil percentageOrdered B y: Lucia Dillard on 03-24-2023 Basophil percentage 10.8 g/dL 13.0-16.5 [facility] Basophil percentage 91 mg/dL 74-106 [facility] Basophil percentage 7.5 g/dL 6.4-8.2 [facility] Basophil percentage 0.30 mg/dL 0.20-1.00 [facility] Basophil percentage 137 mmol/L 136-145 [facility] Basophil percentage 3.6 mmol/L 3.5-5.1 [facility] Basophil percentage 106 mmol/L 98-107 [facility] Basophils (Bld) [#/Vol] 6.9 10*3/uL 4.4-11.0 [facility] Basophils (Bld) [#/Vol] 4.3 10*3/uL 2.0-7.7 [facility] Basophils/100 WBC (Bld) 62.2 % 47-70 [facility] Basophils/100 WBC (Bld) 8.9 % 0-10 [facility] Basophils/100 WBC (Bld) 2.9 % 0-5 [facility] Basophils/100 WBC (Bld) 0.3 % 0-1 [facility] Bilirubin [Mass/Vol] 0.30 mg/dL 0.20-1.00 [facility] Comment on above: For patients on eltr ombopag therapy, use of Dimension [place] TBIL is not recommended. Chloride [Moles/Vol] 106 mmol/L 98-107 [facility] Eosinophils/100 WBC (Bld) 2.9 % 0-5 [facility] Glucose [Mass/Vol] 91 mg/dL 74-106 [facility] Hemoglobin (Bld) [Mass/Vol] 10.8 g/dL 13.0-16.5 [facility] Monocytes/100 WBC (Bld) 8.9 % 0-10 [facility] Neutrophils (Bld) [#/Vol] 4.3 10*3/uL 2.0-7.7 [facility] Neutrophils/100 WBC (Bld) 62.2 % 47-70 [facility] Potassium [Moles/Vol] 3.6 mmol/L 3.5-5.1 [facility] Protein [Mass/Vol] 7.5 g/dL 6.4-8.2 [facility] Sodium [Moles/Vol] 137 mmol/L 136-145 [facility] WBC (Bld) [#/Vol] 6.9 10*3/uL 4.4-11.0 [facility] Basophil percentageOrdered B y: Dominic Méndez on 03-24-2023 Basophil percentage 0.5 mmol/L 0.4-2.0 [facility] Lactate [Moles/Vol] 0.5 mmol/L 0.4-2.0 [facility] Determination of erythrocyte mean corpuscular volume (MCV)Ordered By: Lucia Dillard on 03-24-2023 MCV (RBC) [Entitic vol] 84.4 fL 80-94 [facility] Erythrocyte distribution wid th ratioOrdered By: Lucia Dillard on 03-24-2023 Erythrocyte distribution width (RBC) [Ratio] 14.9 % 11.6-14.6 [facility] Erythrocyte distribution wid th standard deviationOrdered By: Lucia Dillard on 03-24-2023 Erythrocyte distribution width (RBC) [Entitic vol] 46.0 fL 35.1-43.9 [facility] Hematocrit Auto (Bld) [Volum e fraction]Ordered By: Lucia Dillard on 03-24-2023 Hematocrit (Bld) [Volume fraction] 35.2 % 40-54 [facility] Immature granulocytes/100 WB C Auto (Bld)Ordered By: Lucia Dillard on 03-24-2023 Immature granulocytes/100 WBC (Bld) 0.100 % 0.0-0.9 [facility] Comment on above: IG% - Immature Granu locytes (promyelocytes, myelocytes and metamyelocytes) > 1% indicates that a LEFT SHIFT is Present. Laboratory - Chemistry and C hemistry - challengeOrdered By: Lucia Dillard on 03-24-2023 Albumin/Globulin [Mass ratio] 0.7 {ratio} 0.9-2.4 [facility] ALP [Catalytic activity/Vol] 153 U/L 45-117 [facility] ALT [Catalytic activity/Vol] 25 U/L 16-61 [facility] CO2 [Moles/Vol] 29.0 mmol/L 21.0-32.0 [facility] Globulin (S) [Mass/Vol] 4.4 g/dL 2.2-4.2 [facility] Urea nitrogen/Creatinine [Mass ratio] 74.7 mg/mg 10-20 [facility] Laboratory - Hematology and Cell countsOrdered By: Lucia Dillard on 03-24-2023 MCH (RBC) [Entitic mass] 25.9 pg 27.0-32.0 [facility] MCHC (RBC) [Mass/Vol] 30.7 g/dL 32-36 [facility] Nucleated RBC/100 WBC (Bld) [Ratio] 0 % 0-5 [facility] Platelets (Bld) [#/Vol] 181 10*3/uL 150-450 [facility] No Panel InformationOrdered By: Lucia Dillard on 03-24-2023 Estimated Creatinine Clearance Calc 351.31 ml/min [facility] Estimated GFR (MDRD) Amer 547 mL/min >60 [facility] Comment on above: GFR Calc Estimated GFR (MDRD) Non-Af Amer 452 mL/min >60 [facility] Comment on above: Non- GFR Calc 25.9 pg 27.0-32.0 [facility] 30.7 g/dL 32-36 [facility] 181 K/mm3 150-450 [facility] 0 % 0-5 [facility] 452 mL/min >60 [facility] 547 mL/min >60 [facility] 351.31 ml/min [facility] 74.7 RATIO 10-20 [facility] 4.4 g/dL 2.2-4.2 [facility] 0.7 RATIO 0.9-2.4 [facility] 153 U/L 45-117 [facility] 25 U/L 16-61 [facility] 29.0 mmol/L 21.0-32.0 [facility] Platelet mean volume Jm-Ec ker (Bld) [Entitic vol]Ordered By: Lucia Dillard on 03-24-2023 Platelet mean volume (Bld) [Entitic vol] 10.4 fL 6.2-12.0 [facility] RBC Auto (Bld) [#/Vol]Ordere d By: Lucia Dillard on 03-24-2023 RBC (Bld) [#/Vol] 4.17 10*6/uL 4.6-6.2 [facility] Serum or plasma calcium jacinta urement (mass/volume)Ordered By: Lucia Dillard on 03-24-2023 Calcium [Mass/Vol] 8.2 mg/dL 8.5-10.1 [facility] Serum or plasma creatinine m easurement (mass/volume)Ordered By: Lucia Dillard on 03-24-2023 Creatinine [Mass/Vol] 0.24 mg/dL 0.70-1.30 [facility] Comment on above: The validity of the calculated GFR & GFRAA in patients over 70 years has not been determined. Clinical correlation is essential. Serum or plasma urea nitroge n measurement (mass/volume)Ordered By: Lucia Dillard on 03-24-2023 Urea nitrogen [Mass/Vol] 18 mg/dL 7-18 [facility] Thin prep Papanicolaou smear with manual screeningOrdered By: Lucia Dillard on 03-24-2023 Thin prep Papanicolaou smear with manual screening 3.1 g/dL 3.2-5.0 [facility] Thin prep Papanicolaou smear with manual screening 14 U/L 15-37 [facility] Thin prep Papanicolaou smear with manual screening 2 5-15 [facility] Absolute lymphocyte countOrd ered By: Dominic Méndez on 03-23-2023 Lymphocytes Auto (Unsp spec) [#/Vol] 2.81 10*3/uL 0.83-4.51 [facility] Activated partial thrombopla stin time (aPTT) in platelet poor plasma by coagulation aOrdered By: Dominic Méndez on 03-23-2023 aPTT Coag (PPP) [Time] 31.1 s 24.1-36.[address] [facility] Automated lymphocyte count a s percentage of total leukocytesOrdered By: Dominic Méndez on 03-23-2023 Lymphocytes/100 WBC Auto (Unsp spec) 21.7 % 19-41 [facility] Basophil percentageOrdered B y: Dominic Méndez on 03-23-2023 Bilirubin [Mass/Vol] 0.20 mg/dL 0.20-1.00 [facility] Comment on above: For patients on eltr ombopag therapy, use of Dimension [place] TBIL is not recommended. Chloride [Moles/Vol] 104 mmol/L 98-107 [facility] Glucose [Mass/Vol] 123 mg/dL 74-106 [facility] Comment on above: Fasting Glucose resu lt from 100 to 125 mg/dL suggests IMPAIRED HOMEOSTASIS per A.D.A. criteria. Potassium [Moles/Vol] 3.7 mmol/L 3.5-5.1 [facility] Protein [Mass/Vol] 8.8 g/dL 6.4-8.2 [facility] Sodium [Moles/Vol] 135 mmol/L 136-145 [facility] Basophils/100 WBC (Bld) 0.2 % 0-1 [facility] Eosinophils/100 WBC (Bld) 2.0 % 0-5 [facility] Hemoglobin (Bld) [Mass/Vol] 13.1 g/dL 13.0-16.5 [facility] Lactate [Moles/Vol] 5.3 mmol/L 0.4-2.0 [facility] Comment on above: Critical Result(s) C alled at: 13:12:15 03/23/2023 by: Moraima Simmons. Results read back by same. Monocytes/100 WBC (Bld) 5.1 % 0-10 [facility] Neutrophils (Bld) [#/Vol] 9.1 10*3/uL 2.0-7.7 [facility] Neutrophils/100 WBC (Bld) 70.6 % 47-70 [facility] WBC (Bld) [#/Vol] 13.0 10*3/uL 4.4-11.0 [facility] Culture, urineOrdered By: Champ Méndez on 03-23-2023 Bacteria identified Cx Nom (U) Culture exhibits no growth. [facility] Bacteria identified Cx Nom (U) Culture exhibits no growth. [facility] Determination of erythrocyte mean corpuscular volume (MCV)Ordered By: Dominic Méndez on 03-23-2023 MCV (RBC) [Entitic vol] 83.2 fL 80-94 [facility] Erythrocyte distribution wid th ratioOrdered By: Dominic Méndez on 03-23-2023 Erythrocyte distribution width (RBC) [Ratio] 14.8 % 11.6-14.6 [facility] Erythrocyte distribution wid th standard deviationOrdered By: Dominic Méndez on 03-23-2023 Erythrocyte distribution width (RBC) [Entitic vol] 45.1 fL 35.1-43.9 [facility] Hematocrit Auto (Bld) [Volum e fraction]Ordered By: Dominic Méndez on 03-23-2023 Hematocrit (Bld) [Volume fraction] 42.2 % 40-54 [facility] Immature granulocytes/100 WB C Auto (Bld)Ordered By: Dominic Méndez on 03-23-2023 Immature granulocytes/100 WBC (Bld) 0.400 % 0.0-0.9 [facility] Comment on above: IG% - Immature Granu locytes (promyelocytes, myelocytes and metamyelocytes) > 1% indicates that a LEFT SHIFT is Present. International normalized rat io (INR) calculationOrdered By: Dominic Méndez on 03-23-2023 INR Coag (PPP) [Relative time] 1.0 {INR} [facility] Laboratory - Chemistry and C hemistry - challengeOrdered By: Dominic Méndez on 03-23-2023 Albumin/Globulin [Mass ratio] 0.7 {ratio} 0.9-2.4 [facility] ALP [Catalytic activity/Vol] 169 U/L 45-117 [facility] ALT [Catalytic activity/Vol] 29 U/L 16-61 [facility] CO2 [Moles/Vol] 26.0 mmol/L 21.0-32.0 [facility] Globulin (S) [Mass/Vol] 5.2 g/dL 2.2-4.2 [facility] Urea nitrogen/Creatinine [Mass ratio] 46.1 mg/mg 10-20 [facility] Laboratory - CoagulationOrde red By: Dominic Méndez on 03-23-2023 PT Coag (PPP) [Time] 12.9 s 11.7-14.9 [facility] Laboratory - Hematology and Cell countsOrdered By: Dominic Méndez on 03-23-2023 MCH (RBC) [Entitic mass] 25.8 pg 27.0-32.0 [facility] MCHC (RBC) [Mass/Vol] 31.0 g/dL 32-36 [facility] Nucleated RBC/100 WBC (Bld) [Ratio] 0 % 0-5 [facility] Platelets (Bld) [#/Vol] 229 10*3/uL 150-450 [facility] Laboratory - Microbiology an d Antimicrobial susceptibilityOrdered By: Dominic Méndez on 03-23-2023 Bacteria identified Cx Nom (Bld) No growth in 5 days. [facility] Bacteria identified Cx Nom (Bld) No growth in 5 days. [facility] No Panel InformationOrdered By: Dominic Méndez on 03-23-2023 Estimated Creatinine Clearance Calc 186.40 ml/min [facility] Estimated GFR (MDRD) Amer 262 mL/min >60 [facility] Comment on above: GFR Calc Estimated GFR (MDRD) Non-Af Amer 217 mL/min >60 [facility] Comment on above: Non- GFR Calc 12.9 SECONDS 11.7-14.9 [facility] Platelet mean volume Jm-Ec ker (Bld) [Entitic vol]Ordered By: Dominic Méndez on 03-23-2023 Platelet mean volume (Bld) [Entitic vol] 10.1 fL 6.2-12.0 [facility] RBC Auto (Bld) [#/Vol]Ordere d By: Dominic Méndez on 03-23-2023 RBC (Bld) [#/Vol] 5.07 10*6/uL 4.6-6.2 [facility] Respiratory pathogens detect ion panel by molecular detection methodOrdered By: Dominic Méndez on 03-23-2023 Respiratory pathogens DNA and RNA panel YAYO+probe (Resp) [facility] Respiratory pathogens DNA and RNA panel YAYO+probe (Resp) [facility] Serum or plasma calcium jacinta urement (mass/volume)Ordered By: Dominic Méndez on 03-23-2023 Calcium [Mass/Vol] 8.8 mg/dL 8.5-10.1 [facility] Serum or plasma creatinine m easurement (mass/volume)Ordered By: Dominic Méndez on 03-23-2023 Creatinine [Mass/Vol] 0.46 mg/dL 0.70-1.30 [facility] Comment on above: The validity of the calculated GFR & GFRAA in patients over 70 years has not been determined. Clinical correlation is essential. Serum or plasma urea nitroge n measurement (mass/volume)Ordered By: Dominic Méndez on 03-23-2023 Urea nitrogen [Mass/Vol] 21 mg/dL 7-18 [facility] Thin prep Papanicolaou smear with manual screeningOrdered By: Dominic Méndez on 03-23-2023 Thin prep Papanicolaou smear with manual screening 3.6 g/dL 3.2-5.0 [facility] Thin prep Papanicolaou smear with manual screening 16 U/L 15-37 [facility] Thin prep Papanicolaou smear with manual screening 5 5-15 [facility] Absolute lymphocyte countOrd ered By: Torey Huffman on 03-01-2023 Lymphocytes Auto (Unsp spec) [#/Vol] 2.53 10*3/uL 0.83-4.51 [facility] Basophil percentageOrdered B y: Torey Huffman on 03-01-2023 Basophil percentage 93 mg/dL 74-106 [facility] Basophil percentage 140 mmol/L 136-145 [facility] Basophil percentage 3.8 mmol/L 3.5-5.1 [facility] Basophil percentage 105 mmol/L 98-107 [facility] Basophils (Bld) [#/Vol] 7.0 10*3/uL 4.4-11.0 [facility] Basophils (Bld) [#/Vol] 3.5 10*3/uL 2.0-7.7 [facility] Basophils/100 WBC (Bld) 0.3 % 0-1 [facility] Basophils/100 WBC (Bld) 49.5 % 47-70 [facility] Basophils/100 WBC (Bld) 4.9 % 0-5 [facility] Chloride [Moles/Vol] 105 mmol/L 98-107 [facility] Eosinophils/100 WBC (Bld) 4.9 % 0-5 [facility] Glucose [Mass/Vol] 93 mg/dL 74-106 [facility] Neutrophils (Bld) [#/Vol] 3.5 10*3/uL 2.0-7.7 [facility] Neutrophils/100 WBC (Bld) 49.5 % 47-70 [facility] Potassium [Moles/Vol] 3.8 mmol/L 3.5-5.1 [facility] Sodium [Moles/Vol] 140 mmol/L 136-145 [facility] WBC (Bld) [#/Vol] 7.0 10*3/uL 4.4-11.0 [facility] Blood erythrocytes count (nu mber/volume)Ordered By: Torey Huffman on 03-01-2023 RBC (Bld) [#/Vol] 4.30 10*6/uL 4.6-6.2 [facility] Blood hemoglobin measurement (mass/volume)Ordered By: Torey Huffman on 03-01-2023 Hemoglobin (Bld) [Mass/Vol] 11.1 g/dL 13.0-16.5 [facility] Blood lymphocytes/100 leukoc ytesOrdered By: Torey Huffman on 03-01-2023 Lymphocytes/100 WBC (Bld) 36.3 % 19-41 [facility] Blood monocytes/100 leukocyt esOrdered By: Torey Huffman on 03-01-2023 Monocytes/100 WBC (Bld) 8.9 % 0-10 [facility] Blood platelet mean volumeOr dered By: Torey Huffman on 03-01-2023 Platelet mean volume (Bld) [Entitic vol] 11.0 fL 6.2-12.0 [facility] Determination of erythrocyte mean corpuscular volume (MCV)Ordered By: Torey Huffman on 03-01-2023 MCV (RBC) [Entitic vol] 83.5 fL 80-94 [facility] Hematocrit Auto (Bld) [Volum e fraction]Ordered By: Torey Huffman on 03-01-2023 Hematocrit (Bld) [Volume fraction] 35.9 % 40-54 [facility] Laboratory - Chemistry and C hemistry - challengeOrdered By: Torey Huffman on 03-01-2023 CO2 [Moles/Vol] 28.0 mmol/L 21.0-32.0 [facility] Urea nitrogen/Creatinine [Mass ratio] 60.6 mg/mg 10-20 [facility] Laboratory - Hematology and Cell countsOrdered By: Torey Huffman on 03-01-2023 Erythrocyte distribution width (RBC) [Entitic vol] 44.3 fL 35.1-43.9 [facility] Erythrocyte distribution width (RBC) [Ratio] 14.6 % 11.6-14.6 [facility] Immature granulocytes/100 WBC (Bld) 0.100 % 0.0-0.9 [facility] Comment on above: IG% - Immature Granu locytes (promyelocytes, myelocytes and metamyelocytes) > 1% indicates that a LEFT SHIFT is Present. MCH (RBC) [Entitic mass] 25.8 pg 27.0-32.0 [facility] Nucleated RBC/100 WBC (Bld) [Ratio] 0 % 0-5 [facility] MCHC Auto (RBC) [Mass/Vol]Or dered By: Torey Huffman on 03-01-2023 MCHC (RBC) [Mass/Vol] 30.9 g/dL 32-36 [facility] No Panel InformationOrdered By: Torey Huffman on 03-01-2023 Estimated GFR (MDRD) Amer 308 mL/min >60 [facility] Comment on above: GFR Calc Estimated GFR (MDRD) Non-Af Amer 255 mL/min >60 [facility] Comment on above: Non- GFR Calc 25.8 pg 27.0-32.0 [facility] 14.6 % 11.6-14.6 [facility] 44.3 fl 35.1-43.9 [facility] 0.100 % 0.0-0.9 [facility] 0 % 0-5 [facility] 255 mL/min >60 [facility] 308 mL/min >60 [facility] 60.6 RATIO 10-20 [facility] 28.0 mmol/L 21.0-32.0 [facility] Platelets bldOrdered By: Mellissa Huffman on 03-01-2023 Platelets (Bld) [#/Vol] 202 10*3/uL 150-450 [facility] Serum or plasma calcium jacinta urement (mass/volume)Ordered By: Torey Huffman on 03-01-2023 Calcium [Mass/Vol] 8.7 mg/dL 8.5-10.1 [facility] Serum or plasma creatinine m easurement (mass/volume)Ordered By: Torey Huffman on 03-01-2023 Creatinine [Mass/Vol] 0.40 mg/dL 0.70-1.30 [facility] Comment on above: The validity of the calculated GFR & GFRAA in patients over 70 years has not been determined. Clinical correlation is essential. Serum or plasma urea nitroge n measurement (mass/volume)Ordered By: Torey Huffman on 03-01-2023 Urea nitrogen [Mass/Vol] 24 mg/dL 7-18 [facility] Thin prep Papanicolaou smear with manual screeningOrdered By: Torey Huffman on 03-01-2023 Thin prep Papanicolaou smear with manual screening 7 5-15 [facility] Absolute lymphocyte countOrd ered By: Torey Huffman on 02-03-2023 Lymphocytes Auto (Unsp spec) [#/Vol] 2.02 10*3/uL 0.83-4.51 [facility] Basophil percentageOrdered B y: Torey Huffman on 02-03-2023 Basophil percentage 103 mg/dL 74-106 [facility] Basophil percentage 139 mmol/L 136-145 [facility] Basophil percentage 3.7 mmol/L 3.5-5.1 [facility] Basophil percentage 105 mmol/L 98-107 [facility] Basophils (Bld) [#/Vol] 5.9 10*3/uL 4.4-11.0 [facility] Basophils (Bld) [#/Vol] 3.0 10*3/uL 2.0-7.7 [facility] Basophils/100 WBC (Bld) 0.3 % 0-1 [facility] Basophils/100 WBC (Bld) 50.5 % 47-70 [facility] Basophils/100 WBC (Bld) 5.6 % 0-5 [facility] Chloride [Moles/Vol] 105 mmol/L 98-107 [facility] Eosinophils/100 WBC (Bld) 5.6 % 0-5 [facility] Glucose [Mass/Vol] 103 mg/dL 74-106 [facility] Comment on above: Fasting Glucose resu lt from 100 to 125 mg/dL suggests IMPAIRED HOMEOSTASIS per A.D.A. criteria. Neutrophils (Bld) [#/Vol] 3.0 10*3/uL 2.0-7.7 [facility] Neutrophils/100 WBC (Bld) 50.5 % 47-70 [facility] Potassium [Moles/Vol] 3.7 mmol/L 3.5-5.1 [facility] Sodium [Moles/Vol] 139 mmol/L 136-145 [facility] WBC (Bld) [#/Vol] 5.9 10*3/uL 4.4-11.0 [facility] Blood erythrocytes count (nu mber/volume)Ordered By: Torey Huffman on 02-03-2023 RBC (Bld) [#/Vol] 3.99 10*6/uL 4.6-6.2 [facility] Blood hemoglobin measurement (mass/volume)Ordered By: Torey Huffman on 02-03-2023 Hemoglobin (Bld) [Mass/Vol] 10.3 g/dL 13.0-16.5 [facility] Blood lymphocytes/100 leukoc ytesOrdered By: Torey Huffman on 02-03-2023 Lymphocytes/100 WBC (Bld) 34.4 % 19-41 [facility] Blood monocytes/100 leukocyt esOrdered By: Torey Huffman on 02-03-2023 Monocytes/100 WBC (Bld) 9.0 % 0-10 [facility] Blood platelet mean volumeOr dered By: Torey Huffman on 02-03-2023 Platelet mean volume (Bld) [Entitic vol] 11.0 fL 6.2-12.0 [facility] Determination of erythrocyte mean corpuscular volume (MCV)Ordered By: Torey Huffman on 02-03-2023 MCV (RBC) [Entitic vol] 83.0 fL 80-94 [facility] Hematocrit Auto (Bld) [Volum e fraction]Ordered By: Torey Huffman on 02-03-2023 Hematocrit (Bld) [Volume fraction] 33.1 % 40-54 [facility] Laboratory - Chemistry and C hemistry - challengeOrdered By: Torey Huffman on 02-03-2023 CO2 [Moles/Vol] 30.0 mmol/L 21.0-32.0 [facility] Urea nitrogen/Creatinine [Mass ratio] 51.6 mg/mg 10-20 [facility] Laboratory - Hematology and Cell countsOrdered By: Torey Huffman on 02-03-2023 Erythrocyte distribution width (RBC) [Entitic vol] 43.8 fL 35.1-43.9 [facility] Erythrocyte distribution width (RBC) [Ratio] 14.4 % 11.6-14.6 [facility] Immature granulocytes/100 WBC (Bld) 0.200 % 0.0-0.9 [facility] Comment on above: IG% - Immature Granu locytes (promyelocytes, myelocytes and metamyelocytes) > 1% indicates that a LEFT SHIFT is Present. MCH (RBC) [Entitic mass] 25.8 pg 27.0-32.0 [facility] Nucleated RBC/100 WBC (Bld) [Ratio] 0 % 0-5 [facility] MCHC Auto (RBC) [Mass/Vol]Or dered By: Torey Huffman on 02-03-2023 MCHC (RBC) [Mass/Vol] 31.1 g/dL 32-36 [facility] No Panel InformationOrdered By: Torey Huffman on 02-03-2023 Estimated GFR (MDRD) Amer 409 mL/min >60 [facility] Comment on above: GFR Calc Estimated GFR (MDRD) Non-Af Amer 338 mL/min >60 [facility] Comment on above: Non- GFR Calc 25.8 pg 27.0-32.0 [facility] 14.4 % 11.6-14.6 [facility] 43.8 fl 35.1-43.9 [facility] 0.200 % 0.0-0.9 [facility] 0 % 0-5 [facility] 338 mL/min >60 [facility] 409 mL/min >60 [facility] 51.6 RATIO 10-20 [facility] 30.0 mmol/L 21.0-32.0 [facility] Platelets bldOrdered By: Mellissa Huffman on 02-03-2023 Platelets (Bld) [#/Vol] 172 10*3/uL 150-450 [facility] Serum or plasma calcium jacinta urement (mass/volume)Ordered By: Torey Huffman on 02-03-2023 Calcium [Mass/Vol] 8.4 mg/dL 8.5-10.1 [facility] Serum or plasma creatinine m easurement (mass/volume)Ordered By: Torey Huffman on 02-03-2023 Creatinine [Mass/Vol] 0.31 mg/dL 0.70-1.30 [facility] Comment on above: The validity of the calculated GFR & GFRAA in patients over 70 years has not been determined. Clinical correlation is essential. Serum or plasma urea nitroge n measurement (mass/volume)Ordered By: Torey Huffman on 02-03-2023 Urea nitrogen [Mass/Vol] 16 mg/dL 7-18 [facility] Thin prep Papanicolaou smear with manual screeningOrdered By: Torey Huffman on 02-03-2023 Thin prep Papanicolaou smear with manual screening 4 5-15 [facility] Absolute lymphocyte countOrd ered By: Amena Smith on 01-16-2023 Lymphocytes Auto (Unsp spec) [#/Vol] 1.47 10*3/uL 0.83-4.51 [facility] Basophil percentageOrdered B y: Amena Smith on 01-16-2023 Basophil percentage 0-5 SEEN /hpf 0-5 [facility] [place] Basophil percentage 97 mg/dL 74-106 [facility] Basophil percentage 137 mmol/L 136-145 [facility] Basophil percentage 3.7 mmol/L 3.5-5.1 [facility] Basophil percentage 105 mmol/L 98-107 [facility] Basophil percentage 0.9 mmol/L 0.4-2.0 [facility] Basophils (Bld) [#/Vol] 8.7 10*3/uL 4.4-11.0 [facility] Basophils (Bld) [#/Vol] 6.6 10*3/uL 2.0-7.7 [facility] Basophils/100 WBC (Bld) 0.1 % 0-1 [facility] Basophils/100 WBC (Bld) 75.2 % 47-70 [facility] Basophils/100 WBC (Bld) 1.1 % 0-5 [facility] Chloride [Moles/Vol] 105 mmol/L 98-107 [facility] Eosinophils/100 WBC (Bld) 1.1 % 0-5 [facility] Glucose [Mass/Vol] 97 mg/dL 74-106 [facility] Lactate [Moles/Vol] 0.9 mmol/L 0.4-2.0 [facility] Neutrophils (Bld) [#/Vol] 6.6 10*3/uL 2.0-7.7 [facility] Neutrophils/100 WBC (Bld) 75.2 % 47-70 [facility] Potassium [Moles/Vol] 3.7 mmol/L 3.5-5.1 [facility] Sodium [Moles/Vol] 137 mmol/L 136-145 [facility] WBC (Bld) [#/Vol] 8.7 10*3/uL 4.4-11.0 [facility] Bilirubin Test strip Ql (U)O rdered By: Amena Smith on 01-16-2023 Bilirubin Ql (U) Negative Negative [facility] Blood erythrocytes count (nu mber/volume)Ordered By: Amena Smith on 01-16-2023 RBC (Bld) [#/Vol] 4.46 10*6/uL 4.6-6.2 [facility] Blood hemoglobin measurement (mass/volume)Ordered By: Amena Smith on 01-16-2023 Hemoglobin (Bld) [Mass/Vol] 11.6 g/dL 13.0-16.5 [facility] Blood lymphocytes/100 leukoc ytesOrdered By: Amena Smith on 01-16-2023 Lymphocytes/100 WBC (Bld) 16.8 % 19-41 [facility] Blood monocytes/100 leukocyt esOrdered By: Amena Smith on 01-16-2023 Monocytes/100 WBC (Bld) 6.5 % 0-10 [facility] Blood platelet mean volumeOr dered By: Amena Smith on 01-16-2023 Platelet mean volume (Bld) [Entitic vol] 10.2 fL 6.2-12.0 [facility] Culture, urineOrdered By: Елена Smith on 01-16-2023 Bacteria identified Cx Nom (U) Culture exhibits no growth. [facility] Determination of erythrocyte mean corpuscular volume (MCV)Ordered By: Amena Smith on 01-16-2023 MCV (RBC) [Entitic vol] 84.1 fL 80-94 [facility] Hematocrit Auto (Bld) [Volum e fraction]Ordered By: Amena Smith on 01-16-2023 Hematocrit (Bld) [Volume fraction] 37.5 % 40-54 [facility] Influenza virus A and B and SARS-CoV-2 (COVID-19) Ag panel - Upper respiratory specimOrdered By: Amena Smith on 01-16-2023 SARS-CoV-2 (COVID-19) RNA YAYO+probe Ql (Resp) [facility] Ketones Test strip Ql (U)Ord ered By: Amena Smith on 01-16-2023 Ketones Ql (U) 5 mg/dl Negative [facility] Laboratory - Chemistry and C hemistry - challengeOrdered By: Amena Smith on 01-16-2023 CO2 [Moles/Vol] 28.0 mmol/L 21.0-32.0 [facility] Urea nitrogen/Creatinine [Mass ratio] 69.5 mg/mg 10-20 [facility] Laboratory - Hematology and Cell countsOrdered By: Amena Smith on 01-16-2023 Erythrocyte distribution width (RBC) [Entitic vol] 44.5 fL 35.1-43.9 [facility] Erythrocyte distribution width (RBC) [Ratio] 14.6 % 11.6-14.6 [facility] Immature granulocytes/100 WBC (Bld) 0.300 % 0.0-0.9 [facility] Comment on above: IG% - Immature Granu locytes (promyelocytes, myelocytes and metamyelocytes) > 1% indicates that a LEFT SHIFT is Present. MCH (RBC) [Entitic mass] 26.0 pg 27.0-32.0 [facility] Nucleated RBC/100 WBC (Bld) [Ratio] 0 % 0-5 [facility] Laboratory - Microbiology an d Antimicrobial susceptibilityOrdered By: Amena Smith on 01-16-2023 Bacteria identified Cx Nom (Bld) No growth in 5 days. [facility] MCHC Auto (RBC) [Mass/Vol]Or dered By: Amnea Smith on 01-16-2023 MCHC (RBC) [Mass/Vol] 30.9 g/dL 32-36 [facility] Mucus LM Ql (Urine sed)Order ed By: Amena Smith on 01-16-2023 Mucus Ql (Urine sed) 0 SEEN /hpf [facility] Nitrite Test strip Ql (U)Ord ered By: Amena Smith on 01-16-2023 Nitrite Ql (U) Negative Negative [facility] No Panel InformationOrdered By: Amena Smith on 01-16-2023 No growth in 5 days. [facility] Estimated Creatinine Clearance Calc 231.48 ml/min [facility] Estimated GFR (MDRD) Amer 422 mL/min >60 [facility] Comment on above: GFR Calc Estimated GFR (MDRD) Non-Af Amer 349 mL/min >60 [facility] Comment on above: Non- GFR Calc 26.0 pg 27.0-32.0 [facility] 14.6 % 11.6-14.6 [facility] 44.5 fl 35.1-43.9 [facility] 0.300 % 0.0-0.9 [facility] 0 % 0-5 [facility] 349 mL/min >60 [facility] 422 mL/min >60 [facility] 231.48 ml/min [facility] 69.5 RATIO 10-20 [facility] 28.0 mmol/L 21.0-32.0 [facility] No Panel InformationOrdered By: Dalton Lester on 01-16-2023 Troponin I High Sensitivity 4 pg/mL 3.0-78.0 [facility] Comment on above: Please Note: New Suha t Units and Gender Specific Reference Ranges. For more information see Policy Stat Procedure [place] High Sensitivity Troponin (TNIH) and attachments. 4 pg/mL 3.0-78.0 [facility] Platelets bldOrdered By: Marjorie Smith on 01-16-2023 Platelets (Bld) [#/Vol] 206 10*3/uL 150-450 [facility] Protein Test strip Ql (U)Ord ered By: Amena Smith on 01-16-2023 Protein Ql (U) 30 mg/dl Negative [facility] Serum or plasma calcium jacinta urement (mass/volume)Ordered By: Amena Smith on 01-16-2023 Calcium [Mass/Vol] 8.3 mg/dL 8.5-10.1 [facility] Serum or plasma creatinine m easurement (mass/volume)Ordered By: Amena Smith on 01-16-2023 Creatinine [Mass/Vol] 0.30 mg/dL 0.70-1.30 [facility] Comment on above: The validity of the calculated GFR & GFRAA in patients over 70 years has not been determined. Clinical correlation is essential. Serum or plasma urea nitroge n measurement (mass/volume)Ordered By: Amena Smith on 01-16-2023 Urea nitrogen [Mass/Vol] 21 mg/dL 7-18 [facility] Squamous epithelial cells de tection in urine sediment by light microscopyOrdered By: Amena Smith on 01-16-2023 Epithelial cells.squamous LM Ql (Urine sed) 0 SEEN /hpf 0-5 [facility] Thin prep Papanicolaou smear with manual screeningOrdered By: Amena Smith on 01-16-2023 Thin prep Papanicolaou smear with manual screening 4 5-15 [facility] Upper respiratory specimen i nfluenza A virus, influenza B virus, and severe acute respiratory syndromOrdered By: Amena Smith on 01-16-2023 Upper respiratory specimen influenza A virus, influenza B virus, and severe acute respiratory syndrom [facility] Urine blood detectionOrdered By: Amena Smith on 01-16-2023 RBC Ql (U) 10 /ul Negative [facility] RBC Ql (U) 0 SEEN /hpf 0-5 [facility] Urine clarityOrdered By: Marjorie Smith on 01-16-2023 Clarity (U) Clear Clear [facility] Urine color determinationOrd ered By: Amena Smith on 01-16-2023 Color (U) Yellow Yellow [facility] Urine glucose detectionOrder ed By: Amena Smith on 01-16-2023 Glucose Ql (U) Normal mg/dl Normal [facility] Urine leukocyte esterase det ection by dipstickOrdered By: Amena Smith on 01-16-2023 Leukocyte esterase Test strip Ql (U) 25 /ul Negative [facility] Urine pHOrdered By: Amena simons on 01-16-2023 pH (U) 6.0 [pH] 5.0 - 8.0 [facility] Urine sediment bacteria coun t by microscopy (number/high power field)Ordered By: Amena Smith on 01-16-2023 Bacteria LM.HPF (Urine sed) [#/Area] 0 /[HPF] None Seen [facility] Urine specific gravity measu rementOrdered By: Amena Smith on 01-16-2023 Specific gravity (U) [Rel density] 1.025 1.002-1.030 [facility] Urobilinogen Auto test strip Ql (U)Ordered By: Amena Smith on 01-16-2023 Urobilinogen Ql (U) Normal mg/dl Normal [facility] Absolute lymphocyte countOrd ered By: Torey Huffman on 01-04-2023 Lymphocytes Auto (Unsp spec) [#/Vol] 2.04 10*3/uL 0.83-4.51 [facility] Basophil percentageOrdered B y: Torey Huffman on 01-04-2023 Basophil percentage 91 mg/dL 74-106 [facility] Basophil percentage 141 mmol/L 136-145 [facility] Basophil percentage 3.9 mmol/L 3.5-5.1 [facility] Basophil percentage 105 mmol/L 98-107 [facility] Basophils (Bld) [#/Vol] 6.9 10*3/uL 4.4-11.0 [facility] Basophils (Bld) [#/Vol] 3.9 10*3/uL 2.0-7.7 [facility] Basophils/100 WBC (Bld) 0.3 % 0-1 [facility] Basophils/100 WBC (Bld) 57.1 % 47-70 [facility] Basophils/100 WBC (Bld) 4.4 % 0-5 [facility] Chloride [Moles/Vol] 105 mmol/L 98-107 [facility] Eosinophils/100 WBC (Bld) 4.4 % 0-5 [facility] Glucose [Mass/Vol] 91 mg/dL 74-106 [facility] Neutrophils (Bld) [#/Vol] 3.9 10*3/uL 2.0-7.7 [facility] Neutrophils/100 WBC (Bld) 57.1 % 47-70 [facility] Potassium [Moles/Vol] 3.9 mmol/L 3.5-5.1 [facility] Sodium [Moles/Vol] 141 mmol/L 136-145 [facility] WBC (Bld) [#/Vol] 6.9 10*3/uL 4.4-11.0 [facility] Blood erythrocytes count (nu mber/volume)Ordered By: Torey Huffman on 01-04-2023 RBC (Bld) [#/Vol] 4.11 10*6/uL 4.6-6.2 [facility] Blood hemoglobin measurement (mass/volume)Ordered By: Torey Huffman on 01-04-2023 Hemoglobin (Bld) [Mass/Vol] 10.6 g/dL 13.0-16.5 [facility] Blood lymphocytes/100 leukoc ytesOrdered By: Torey Huffman on 01-04-2023 Lymphocytes/100 WBC (Bld) 29.7 % 19-41 [facility] Blood monocytes/100 leukocyt esOrdered By: Torey Huffman on 01-04-2023 Monocytes/100 WBC (Bld) 8.4 % 0-10 [facility] Blood platelet mean volumeOr dered By: Torey Huffman on 01-04-2023 Platelet mean volume (Bld) [Entitic vol] 10.3 fL 6.2-12.0 [facility] Determination of erythrocyte mean corpuscular volume (MCV)Ordered By: Torey Huffman on 01-04-2023 MCV (RBC) [Entitic vol] 84.9 fL 80-94 [facility] Hematocrit Auto (Bld) [Volum e fraction]Ordered By: Torey Huffman on 01-04-2023 Hematocrit (Bld) [Volume fraction] 34.9 % 40-54 [facility] Laboratory - Chemistry and C hemistry - challengeOrdered By: Torey Huffman on 01-04-2023 CO2 [Moles/Vol] 31.0 mmol/L 21.0-32.0 [facility] Urea nitrogen/Creatinine [Mass ratio] 65.4 mg/mg 10-20 [facility] Laboratory - Hematology and Cell countsOrdered By: Torey Huffman on 01-04-2023 Erythrocyte distribution width (RBC) [Entitic vol] 45.1 fL 35.1-43.9 [facility] Erythrocyte distribution width (RBC) [Ratio] 14.6 % 11.6-14.6 [facility] Immature granulocytes/100 WBC (Bld) 0.100 % 0.0-0.9 [facility] Comment on above: IG% - Immature Granu locytes (promyelocytes, myelocytes and metamyelocytes) > 1% indicates that a LEFT SHIFT is Present. MCH (RBC) [Entitic mass] 25.8 pg 27.0-32.0 [facility] Nucleated RBC/100 WBC (Bld) [Ratio] 0 % 0-5 [facility] MCHC Auto (RBC) [Mass/Vol]Or dered By: Torey Huffman on 01-04-2023 MCHC (RBC) [Mass/Vol] 30.4 g/dL 32-36 [facility] No Panel InformationOrdered By: Torey Huffman on 01-04-2023 Estimated GFR (MDRD) Amer 501 mL/min >60 [facility] Comment on above: GFR Calc Estimated GFR (MDRD) Non-Af Amer 414 mL/min >60 [facility] Comment on above: Non- GFR Calc 25.8 pg 27.0-32.0 [facility] 14.6 % 11.6-14.6 [facility] 45.1 fl 35.1-43.9 [facility] 0.100 % 0.0-0.9 [facility] 0 % 0-5 [facility] 414 mL/min >60 [facility] 501 mL/min >60 [facility] 65.4 RATIO 10-20 [facility] 31.0 mmol/L 21.0-32.0 [facility] Platelets bldOrdered By: Mellissa Huffman on 01-04-2023 Platelets (Bld) [#/Vol] 172 10*3/uL 150-450 [facility] Serum or plasma calcium jacinta urement (mass/volume)Ordered By: Torey Huffman on 01-04-2023 Calcium [Mass/Vol] 8.1 mg/dL 8.5-10.1 [facility] Serum or plasma creatinine m easurement (mass/volume)Ordered By: Torey Huffman on 01-04-2023 Creatinine [Mass/Vol] 0.26 mg/dL 0.70-1.30 [facility] Comment on above: The validity of the calculated GFR & GFRAA in patients over 70 years has not been determined. Clinical correlation is essential. Serum or plasma urea nitroge n measurement (mass/volume)Ordered By: Torey Huffman on 01-04-2023 Urea nitrogen [Mass/Vol] 17 mg/dL 7-18 [facility] Thin prep Papanicolaou smear with manual screeningOrdered By: Torey Huffman on 01-04-2023 Thin prep Papanicolaou smear with manual screening 5 5-15 [facility] Basophil percentageOrdered B y: Donte Abebe on 12-13-2022 Basophil percentage 116 mg/dL 74-106 [facility] Basophil percentage 141 mmol/L 136-145 [facility] Basophil percentage 3.4 mmol/L 3.5-5.1 [facility] Basophil percentage 109 mmol/L 98-107 [facility] Basophils (Bld) [#/Vol] 7.6 10*3/uL 4.4-11.0 [facility] Chloride [Moles/Vol] 109 mmol/L 98-107 [facility] Glucose [Mass/Vol] 116 mg/dL 74-106 [facility] Comment on above: Fasting Glucose resu lt from 100 to 125 mg/dL suggests IMPAIRED HOMEOSTASIS per A.D.A. criteria. Potassium [Moles/Vol] 3.4 mmol/L 3.5-5.1 [facility] Sodium [Moles/Vol] 141 mmol/L 136-145 [facility] WBC (Bld) [#/Vol] 7.6 10*3/uL 4.4-11.0 [facility] Blood erythrocytes count (nu mber/volume)Ordered By: Donte Abebe on 12-13-2022 RBC (Bld) [#/Vol] 3.74 10*6/uL 4.6-6.2 [facility] Blood hemoglobin measurement (mass/volume)Ordered By: Donte Abebe on 12-13-2022 Hemoglobin (Bld) [Mass/Vol] 9.9 g/dL 13.0-16.5 [facility] Blood platelet mean volumeOr dered By: Donte Abebe on 12-13-2022 Platelet mean volume (Bld) [Entitic vol] 9.9 fL 6.2-12.0 [facility] Determination of erythrocyte mean corpuscular volume (MCV)Ordered By: Donte Abebe on 12-13-2022 MCV (RBC) [Entitic vol] 87.4 fL 80-94 [facility] Hematocrit Auto (Bld) [Volum e fraction]Ordered By: Donte Abebe on 12-13-2022 Hematocrit (Bld) [Volume fraction] 32.7 % 40-54 [facility] Laboratory - Chemistry and C hemistry - challengeOrdered By: Donte Abebe on 12-13-2022 CO2 [Moles/Vol] 27.0 mmol/L 21.0-32.0 [facility] Urea nitrogen/Creatinine [Mass ratio] 47.2 mg/mg 12-11 [facility] Laboratory - Hematology and Cell countsOrdered By: Donte Abebe on 12-13-2022 Erythrocyte distribution width (RBC) [Entitic vol] 46.0 fL 35.1-43.9 [facility] Erythrocyte distribution width (RBC) [Ratio] 14.4 % 11.6-14.6 [facility] MCH (RBC) [Entitic mass] 26.5 pg 27.0-32.0 [facility] MCHC Auto (RBC) [Mass/Vol]Or dered By: Donte Abebe on 12-13-2022 MCHC (RBC) [Mass/Vol] 30.3 g/dL 32-36 [facility] No Panel InformationOrdered By: Donte Abebe on 12-13-2022 Estimated Creatinine Clearance Calc 277.78 ml/min [facility] Estimated GFR (MDRD) Amer 515 mL/min >60 [facility] Comment on above: GFR Calc Estimated GFR (MDRD) Non-Af Amer 426 mL/min >60 [facility] Comment on above: Non- GFR Calc 26.5 pg 27.0-32.0 [facility] 14.4 % 11.6-14.6 [facility] 46.0 fl 35.1-43.9 [facility] 426 mL/min >60 [facility] 515 mL/min >60 [facility] 277.78 ml/min [facility] 47.2 RATIO 12-11 [facility] 27.0 mmol/L 21.0-32.0 [facility] Platelets bldOrdered By: Sho Abebe on 12-13-2022 Platelets (Bld) [#/Vol] 166 10*3/uL 150-450 [facility] Serum or plasma calcium jacinta urement (mass/volume)Ordered By: Donte Abebe on 12-13-2022 Calcium [Mass/Vol] 7.4 mg/dL 8.5-10.1 [facility] Serum or plasma creatinine m easurement (mass/volume)Ordered By: Donte Abebe on 12-13-2022 Creatinine [Mass/Vol] 0.25 mg/dL 0.70-1.30 [facility] Comment on above: The validity of the calculated GFR & GFRAA in patients over 70 years has not been determined. Clinical correlation is essential. Serum or plasma urea nitroge n measurement (mass/volume)Ordered By: Donte Abebe on 12-13-2022 Urea nitrogen [Mass/Vol] 12 mg/dL 7-18 [facility] Thin prep Papanicolaou smear with manual screeningOrdered By: Donte Abebe on 12-13-2022 Thin prep Papanicolaou smear with manual screening 5 5-15 [facility] Basophil percentageOrdered B y: Donte Abebe on 12-11-2022 Chloride [Moles/Vol] 111 mmol/L 98-107 [facility] Glucose [Mass/Vol] 101 mg/dL 74-106 [facility] Comment on above: Fasting Glucose resu lt from 100 to 125 mg/dL suggests IMPAIRED HOMEOSTASIS per A.D.A. criteria. Potassium [Moles/Vol] 2.8 mmol/L 3.5-5.1 [facility] Sodium [Moles/Vol] 144 mmol/L 136-145 [facility] WBC (Bld) [#/Vol] 7.6 10*3/uL 4.4-11.0 [facility] Blood erythrocytes count (nu mber/volume)Ordered By: Donte Abebe on 12-11-2022 RBC (Bld) [#/Vol] 3.90 10*6/uL 4.6-6.2 [facility] Blood hemoglobin measurement (mass/volume)Ordered By: Donte Abebe on 12-11-2022 Hemoglobin (Bld) [Mass/Vol] 10.3 g/dL 13.0-16.5 [facility] Blood platelet mean volumeOr dered By: Donte Abebe on 12-11-2022 Platelet mean volume (Bld) [Entitic vol] 9.9 fL 6.2-12.0 [facility] Determination of erythrocyte mean corpuscular volume (MCV)Ordered By: Donte Abebe on 12-11-2022 MCV (RBC) [Entitic vol] 85.9 fL 80-94 [facility] Hematocrit Auto (Bld) [Volum e fraction]Ordered By: Donte Abebe on 12-11-2022 Hematocrit (Bld) [Volume fraction] 33.5 % 40-54 [facility] Laboratory - Chemistry and C hemistry - challengeOrdered By: Donte Abebe on 12-11-2022 CO2 [Moles/Vol] 29.0 mmol/L 21.0-32.0 [facility] Urea nitrogen/Creatinine [Mass ratio] 69.8 mg/mg 12-11 [facility] Laboratory - Hematology and Cell countsOrdered By: Donte Abebe on 12-11-2022 Erythrocyte distribution width (RBC) [Entitic vol] 44.6 fL 35.1-43.9 [facility] Erythrocyte distribution width (RBC) [Ratio] 14.4 % 11.6-14.6 [facility] MCH (RBC) [Entitic mass] 26.4 pg 27.0-32.0 [facility] MCHC Auto (RBC) [Mass/Vol]Or dered By: Donte Abebe on 12-11-2022 MCHC (RBC) [Mass/Vol] 30.7 g/dL 32-36 [facility] No Panel InformationOrdered By: Donte Abebe on 12-11-2022 Estimated Creatinine Clearance Calc 267.09 ml/min [facility] Estimated GFR (MDRD) Amer 506 mL/min >60 [facility] Comment on above: GFR Calc Estimated GFR (MDRD) Non-Af Amer 418 mL/min >60 [facility] Comment on above: Non- GFR Calc Platelets bldOrdered By: Sho Abebe on 12-11-2022 Platelets (Bld) [#/Vol] 183 10*3/uL 150-450 [facility] Serum or plasma calcium jacinta urement (mass/volume)Ordered By: Donte Abebe on 12-11-2022 Calcium [Mass/Vol] 7.8 mg/dL 8.5-10.1 [facility] Serum or plasma creatinine m easurement (mass/volume)Ordered By: Donte Abebe on 12-11-2022 Creatinine [Mass/Vol] 0.26 mg/dL 0.70-1.30 [facility] Comment on above: The validity of the calculated GFR & GFRAA in patients over 70 years has not been determined. Clinical correlation is essential. Serum or plasma urea nitroge n measurement (mass/volume)Ordered By: Donte Abebe on 12-11-2022 Urea nitrogen [Mass/Vol] 18 mg/dL 7-18 [facility] Thin prep Papanicolaou smear with manual screeningOrdered By: Donte Abebe on 12-11-2022 Thin prep Papanicolaou smear with manual screening 4 5-15 [facility] Absolute lymphocyte countOrd ered By: Miky Pio on 12-10-2022 Lymphocytes Auto (Unsp spec) [#/Vol] 2.23 10*3/uL 0.83-4.51 [facility] Basophil percentageOrdered B y: Miky Rahman on 12-10-2022 Basophil percentage 8.7 g/dL 6.4-8.2 [facility] Basophil percentage 0.20 mg/dL 0.20-1.00 [facility] Basophils (Bld) [#/Vol] 8.4 10*3/uL 2.0-7.7 [facility] Basophils/100 WBC (Bld) 0.2 % 0-1 [facility] Basophils/100 WBC (Bld) 72.2 % 47-70 [facility] Basophils/100 WBC (Bld) 2.1 % 0-5 [facility] Bilirubin [Mass/Vol] 0.20 mg/dL 0.20-1.00 [facility] Comment on above: For patients on eltr ombopag therapy, use of Dimension [place] TBIL is not recommended. Chloride [Moles/Vol] 105 mmol/L 98-107 [facility] Eosinophils/100 WBC (Bld) 2.1 % 0-5 [facility] Glucose [Mass/Vol] 109 mg/dL 74-106 [facility] Comment on above: Fasting Glucose resu lt from 100 to 125 mg/dL suggests IMPAIRED HOMEOSTASIS per A.D.A. criteria. Neutrophils (Bld) [#/Vol] 8.4 10*3/uL 2.0-7.7 [facility] Neutrophils/100 WBC (Bld) 72.2 % 47-70 [facility] Potassium [Moles/Vol] 3.8 mmol/L 3.5-5.1 [facility] Protein [Mass/Vol] 8.7 g/dL 6.4-8.2 [facility] Sodium [Moles/Vol] 140 mmol/L 136-145 [facility] WBC (Bld) [#/Vol] 11.6 10*3/uL 4.4-11.0 [facility] Blood erythrocytes count (nu mber/volume)Ordered By: Miky Rahman on 12-10-2022 RBC (Bld) [#/Vol] 4.77 10*6/uL 4.6-6.2 [facility] Blood hemoglobin measurement (mass/volume)Ordered By: Miky Rahman on 12-10-2022 Hemoglobin (Bld) [Mass/Vol] 12.6 g/dL 13.0-16.5 [facility] Blood lymphocytes/100 leukoc ytesOrdered By: Miky Rahman on 12-10-2022 Lymphocytes/100 WBC (Bld) 19.2 % 19-41 [facility] Blood monocytes/100 leukocyt esOrdered By: Miky Rahman on 12-10-2022 Monocytes/100 WBC (Bld) 5.9 % 0-10 [facility] Blood platelet mean volumeOr dered By: Miky Rahman on 12-10-2022 Platelet mean volume (Bld) [Entitic vol] 10.0 fL 6.2-12.0 [facility] Determination of erythrocyte mean corpuscular volume (MCV)Ordered By: Miky Rahman on 12-10-2022 MCV (RBC) [Entitic vol] 83.4 fL 80-94 [facility] Hematocrit Auto (Bld) [Volum e fraction]Ordered By: Miky Rahman on 12-10-2022 Hematocrit (Bld) [Volume fraction] 39.8 % 40-54 [facility] INR in Blood by Coagulation assayOrdered By: Miky Rahman on 12-10-2022 INR Coag (Bld) [Relative time] 1.0 {INR} [facility] Laboratory - Chemistry and C hemistry - challengeOrdered By: Miky Rahman on 12-10-2022 ALP [Catalytic activity/Vol] 144 U/L 45-117 [facility] ALT [Catalytic activity/Vol] 29 U/L 16-61 [facility] CO2 [Moles/Vol] 29.0 mmol/L 21.0-32.0 [facility] Globulin (S) [Mass/Vol] 5.4 g/dL 2.2-4.2 [facility] Lipase [Catalytic activity/Vol] 58 U/L 13-75 [facility] Comment on above: Please note:LIPASE r evised reference range effective 22. New Lipase methodology. Expected to produce lower values than the previous assay method. NEW Reference Range: 13 - 75 U/L Urea nitrogen/Creatinine [Mass ratio] 45.3 mg/mg 10-20 [facility] - CoagulationOrde red By: Miky Rahman on 12-10-2022 aPTT Coag (Bld) [Time] 35.6 s 24.1-36.[address] [facility] PT Coag (PPP) [Time] 13.4 s 11.7-14.9 [facility] - Hematology and Cell countsOrdered By: Miky Rahman on 12-10-2022 Erythrocyte distribution width (RBC) [Entitic vol] 42.8 fL 35.1-43.9 [facility] Erythrocyte distribution width (RBC) [Ratio] 14.0 % 11.6-14.6 [facility] Immature granulocytes/100 WBC (Bld) 0.400 % 0.0-0.9 [facility] Comment on above: IG% - Immature Granu locytes (promyelocytes, myelocytes and metamyelocytes) > 1% indicates that a LEFT SHIFT is Present. MCH (RBC) [Entitic mass] 26.4 pg 27.0-32.0 [facility] Nucleated RBC/100 WBC (Bld) [Ratio] 0 % 0-5 [facility] MCHC Auto (RBC) [Mass/Vol]Or dered By: Miky Rahman on 12-10-2022 MCHC (RBC) [Mass/Vol] 31.7 g/dL 32-36 [facility] No Panel InformationOrdered By: Miky Rahman on 12-10-2022 Estimated Creatinine Clearance Calc 198.41 ml/min [facility] Estimated GFR (MDRD) Amer 352 mL/min >60 [facility] Comment on above: GFR Calc Estimated GFR (MDRD) Non-Af Amer 291 mL/min >60 [facility] Comment on above: Non- GFR Calc 0.400 % 0.0-0.9 [facility] 0 % 0-5 [facility] 13.4 SECONDS 11.7-14.9 [facility] 35.6 Seconds 24.1-36.2 [facility] 5.4 g/dL 2.2-4.2 [facility] 58 U/L 13-75 [facility] 144 U/L 45-117 [facility] 29 U/L 16-61 [facility] Platelets bldOrdered By: Maximus Rahman on 12-10-2022 Platelets (Bld) [#/Vol] 228 10*3/uL 150-450 [facility] Serum or plasma albumin jacinta urement (mass/volume)Ordered By: Miky Rahman on 12-10-2022 Albumin [Mass/Vol] 3.3 g/dL 3.2-5.0 [facility] Serum or plasma albumin/glob ulin mass ratioOrdered By: Miky Rahman on 12-10-2022 Albumin/Globulin [Mass ratio] 0.6 {ratio} 0.9-2.4 [facility] Serum or plasma calcium jacinta urement (mass/volume)Ordered By: Miky Rahman on 12-10-2022 Calcium [Mass/Vol] 8.6 mg/dL 8.5-10.1 [facility] Serum or plasma creatinine m easurement (mass/volume)Ordered By: Miky Rahman on 12-10-2022 Creatinine [Mass/Vol] 0.35 mg/dL 0.70-1.30 [facility] Comment on above: The validity of the calculated GFR & GFRAA in patients over 70 years has not been determined. Clinical correlation is essential. Serum or plasma urea nitroge n measurement (mass/volume)Ordered By: Miky Rahman on 12-10-2022 Urea nitrogen [Mass/Vol] 16 mg/dL 7-18 [facility] Thin prep Papanicolaou smear with manual screeningOrdered By: Miky Rahman on 12-10-2022 Thin prep Papanicolaou smear with manual screening 19 U/L 15-37 [facility] Thin prep Papanicolaou smear with manual screening 6 5-15 [facility] Absolute lymphocyte countOrd ered By: Torey Huffman on 12-07-2022 Lymphocytes Auto (Unsp spec) [#/Vol] 2.35 10*3/uL 0.83-4.51 [facility] Basophil percentageOrdered B y: Torey Huffman on 12-07-2022 Basophil percentage 100 mg/dL 74-106 [facility] Basophil percentage 139 mmol/L 136-145 [facility] Basophil percentage 3.5 mmol/L 3.5-5.1 [facility] Basophil percentage 104 mmol/L 98-107 [facility] Basophils (Bld) [#/Vol] 6.7 10*3/uL 4.4-11.0 [facility] Basophils (Bld) [#/Vol] 3.4 10*3/uL 2.0-7.7 [facility] Basophils/100 WBC (Bld) 0.3 % 0-1 [facility] Basophils/100 WBC (Bld) 50.3 % 47-70 [facility] Basophils/100 WBC (Bld) 5.3 % 0-5 [facility] Chloride [Moles/Vol] 104 mmol/L 98-107 [facility] Eosinophils/100 WBC (Bld) 5.3 % 0-5 [facility] Glucose [Mass/Vol] 100 mg/dL 74-106 [facility] Comment on above: Fasting Glucose resu lt from 100 to 125 mg/dL suggests IMPAIRED HOMEOSTASIS per A.D.A. criteria. Neutrophils (Bld) [#/Vol] 3.4 10*3/uL 2.0-7.7 [facility] Neutrophils/100 WBC (Bld) 50.3 % 47-70 [facility] Potassium [Moles/Vol] 3.5 mmol/L 3.5-5.1 [facility] Sodium [Moles/Vol] 139 mmol/L 136-145 [facility] WBC (Bld) [#/Vol] 6.7 10*3/uL 4.4-11.0 [facility] Blood erythrocytes count (nu mber/volume)Ordered By: Torey Huffman on 12-07-2022 RBC (Bld) [#/Vol] 4.10 10*6/uL 4.6-6.2 [facility] Blood hemoglobin measurement (mass/volume)Ordered By: Torey Huffman on 12-07-2022 Hemoglobin (Bld) [Mass/Vol] 10.8 g/dL 13.0-16.5 [facility] Blood lymphocytes/100 leukoc ytesOrdered By: Torey Huffman on 12-07-2022 Lymphocytes/100 WBC (Bld) 34.9 % 19-41 [facility] Blood monocytes/100 leukocyt esOrdered By: Torey Huffman on 12-07-2022 Monocytes/100 WBC (Bld) 8.9 % 0-10 [facility] Blood platelet mean volumeOr dered By: Torey Huffman on 12-07-2022 Platelet mean volume (Bld) [Entitic vol] 10.7 fL 6.2-12.0 [facility] Determination of erythrocyte mean corpuscular volume (MCV)Ordered By: Torey Huffman on 12-07-2022 MCV (RBC) [Entitic vol] 86.3 fL 80-94 [facility] Hematocrit Auto (Bld) [Volum e fraction]Ordered By: Torey Huffman on 12-07-2022 Hematocrit (Bld) [Volume fraction] 35.4 % 40-54 [facility] - Chemistry and C hemistry - challengeOrdered By: Torey Huffman on 12-07-2022 CO2 [Moles/Vol] 30.0 mmol/L 21.0-32.0 [facility] Urea nitrogen/Creatinine [Mass ratio] 58.1 mg/mg 10-20 [facility] - Hematology and Cell countsOrdered By: Torey Huffman on 12-07-2022 Erythrocyte distribution width (RBC) [Entitic vol] 43.8 fL 35.1-43.9 [facility] Erythrocyte distribution width (RBC) [Ratio] 13.9 % 11.6-14.6 [facility] Immature granulocytes/100 WBC (Bld) 0.300 % 0.0-0.9 [facility] Comment on above: IG% - Immature Granu locytes (promyelocytes, myelocytes and metamyelocytes) > 1% indicates that a LEFT SHIFT is Present. MCH (RBC) [Entitic mass] 26.3 pg 27.0-32.0 [facility] Nucleated RBC/100 [facility] (Bld) [[facility]] 0 % 0-5 [facility] [Mass/Vol]Or dered By: Torey Huffman on 12-07-2022 MCHC (RBC) [Mass/Vol] 30.5 g/dL 32-36 [facility] No Panel InformationOrdered By: Torey Huffman on 12-07-2022 Estimated GFR (MDRD) Amer 385 mL/min >60 [facility] Comment on above: GFR Calc Estimated GFR (MDRD) Non-Af Amer 318 mL/min >60 [facility] Comment on above: Non- GFR Calc 26.3 pg 27.0-32.0 [facility] 13.9 % 11.6-14.6 [facility] 43.8 fl 35.1-43.9 [facility] 0.300 % 0.0-0.9 [facility] 0 % 0-5 [facility] 318 mL/min >60 [facility] 385 mL/min >60 [facility] 58.1 RATIO 10-20 [facility] 30.0 mmol/L 21.0-32.0 [facility] Platelets bldOrdered By: Mellissa Huffman on 12-07-2022 Platelets (Bld) [#/Vol] 208 10*3/uL 150-450 [facility] Serum or plasma calcium jacinta urement (mass/volume)Ordered By: Torey Huffman on 12-07-2022 Calcium [Mass/Vol] 8.3 mg/dL 8.5-10.1 [facility] Serum or plasma creatinine m easurement (mass/volume)Ordered By: Torey Huffman on 12-07-2022 Creatinine [Mass/Vol] 0.33 mg/dL 0.70-1.30 [facility] Comment on above: The validity of the calculated GFR & GFRAA in patients over 70 years has not been determined. Clinical correlation is essential. Serum or plasma urea nitroge n measurement (mass/volume)Ordered By: Torey Huffman on 12-07-2022 Urea nitrogen [Mass/Vol] 19 mg/dL 7-18 [facility] Thin prep Papanicolaou smear with manual screeningOrdered By: Torey Huffman on 10-16-2023 Thin prep Papanicolaou smear with manual screening 5 5-15 [facility] Absolute lymphocyte countOrd ered By: Torey Huffman on 11-12-2022 Lymphocytes Auto (Unsp spec) [#/Vol] 2.33 10*3/uL 0.83-4.51 [facility] Basophil percentageOrdered B y: Torey Huffman on 11-12-2022 Basophils/100 WBC (Bld) 0.1 % 0-1 [facility] Chloride [Moles/Vol] 104 mmol/L 98-107 [facility] Eosinophils/100 WBC (Bld) 4.2 % 0-5 [facility] Glucose [Mass/Vol] 99 mg/dL 74-106 [facility] Neutrophils (Bld) [#/Vol] 4.4 10*3/uL 2.0-7.7 [facility] Neutrophils/100 WBC (Bld) 56.0 % 47-70 [facility] Potassium [Moles/Vol] 3.6 mmol/L 3.5-5.1 [facility] Sodium [Moles/Vol] 140 mmol/L 136-145 [facility] WBC (Bld) [#/Vol] 7.8 10*3/uL 4.4-11.0 [facility] Blood erythrocytes count (nu mber/volume)Ordered By: Torey Huffman on 11-12-2022 RBC (Bld) [#/Vol] 4.11 10*6/uL 4.6-6.2 [facility] Blood hemoglobin measurement (mass/volume)Ordered By: Torey Huffman on 11-12-2022 Hemoglobin (Bld) [Mass/Vol] 10.9 g/dL 13.0-16.5 [facility] Blood lymphocytes/100 leukoc ytesOrdered By: Torey Huffman on 11-12-2022 Lymphocytes/100 WBC (Bld) 29.7 % 19-41 [facility] Blood monocytes/100 leukocyt esOrdered By: Torey Huffman on 11-12-2022 Monocytes/100 WBC (Bld) 9.7 % 0-10 [facility] Blood platelet mean volumeOr dered By: Torey Huffman on 11-12-2022 Platelet mean volume (Bld) [Entitic vol] 10.3 fL 6.2-12.0 [facility] Determination of erythrocyte mean corpuscular volume (MCV)Ordered By: Torey Huffman on 11-12-2022 MCV (RBC) [Entitic vol] 86.6 fL 80-94 [facility] Hematocrit Auto (Bld) [Volum e fraction]Ordered By: Torey Huffman on 11-12-2022 Hematocrit (Bld) [Volume fraction] 35.6 % 40-54 [facility] - Chemistry and C hemistry - challengeOrdered By: Torey Huffman on 11-12-2022 CO2 [Moles/Vol] 31.0 mmol/L 21.0-32.0 [facility] Urea nitrogen/Creatinine [Mass ratio] 81.1 mg/mg 10-20 [facility] - Hematology and Cell countsOrdered By: Torey Huffman on 11-12-2022 Erythrocyte distribution width (RBC) [Entitic vol] 43.8 fL 35.1-43.9 [facility] Erythrocyte distribution width (RBC) [Ratio] 13.9 % 11.6-14.6 [facility] Immature granulocytes/100 WBC (Bld) 0.300 % 0.0-0.9 [facility] Comment on above: IG% - Immature Granu locytes (promyelocytes, myelocytes and metamyelocytes) > 1% indicates that a LEFT SHIFT is Present. MCH (RBC) [Entitic mass] 26.5 pg 27.0-32.0 [facility] Nucleated RBC/100 WBC (Bld) [Ratio] 0 % 0-5 [facility] MCHC Auto (RBC) [Mass/Vol]Or dered By: Torey Huffman on 11-12-2022 MCHC (RBC) [Mass/Vol] 30.6 g/dL 32-36 [facility] No Panel InformationOrdered By: Torey Huffman on 11-12-2022 Estimated GFR (MDRD) Amer 743 mL/min >60 [facility] Comment on above: GFR Calc Estimated GFR (MDRD) Non-Af Amer 614 mL/min >60 [facility] Comment on above: Non- GFR Calc Platelets bldOrdered By: Mellissa Huffman on 11-12-2022 Platelets (Bld) [#/Vol] 212 10*3/uL 150-450 [facility] Serum or plasma calcium jacinta urement (mass/volume)Ordered By: Torey Huffman on 11-12-2022 Calcium [Mass/Vol] 8.4 mg/dL 8.5-10.1 [facility] Serum or plasma creatinine m easurement (mass/volume)Ordered By: Torey Huffman on 11-12-2022 Creatinine [Mass/Vol] 0.18 mg/dL 0.70-1.30 [facility] Comment on above: The validity of the calculated GFR & GFRAA in patients over 70 years has not been determined. Clinical correlation is essential. Serum or plasma urea nitroge n measurement (mass/volume)Ordered By: Torey Huffman on 11-12-2022 Urea nitrogen [Mass/Vol] 15 mg/dL 7-18 [facility] Thin prep Papanicolaou smear with manual screeningOrdered By: Torey Huffman on 11-12-2022 Thin prep Papanicolaou smear with manual screening 5 5-15 [facility] Absolute lymphocyte countOrd ered By: Torey Huffman on 10-14-2022 Lymphocytes Auto (Unsp spec) [#/Vol] 2.10 10*3/uL 0.83-4.51 [facility] Basophil percentageOrdered B y: Torey Huffman on 10-14-2022 Basophils/100 WBC (Bld) 0.3 % 0-1 [facility] Chloride [Moles/Vol] 103 mmol/L 98-107 [facility] Eosinophils/100 WBC (Bld) 3.8 % 0-5 [facility] Glucose [Mass/Vol] 87 mg/dL 74-106 [facility] Neutrophils (Bld) [#/Vol] 3.5 10*3/uL 2.0-7.7 [facility] Neutrophils/100 WBC (Bld) 54.4 % 47-70 [facility] Potassium [Moles/Vol] 3.5 mmol/L 3.5-5.1 [facility] Sodium [Moles/Vol] 137 mmol/L 136-145 [facility] WBC (Bld) [#/Vol] 6.4 10*3/uL 4.4-11.0 [facility] Blood erythrocytes count (nu mber/volume)Ordered By: Torey Huffman on 10-14-2022 RBC (Bld) [#/Vol] 4.11 10*6/uL 4.6-6.2 [facility] Blood hemoglobin measurement (mass/volume)Ordered By: Torey Huffman on 10-14-2022 Hemoglobin (Bld) [Mass/Vol] 11.2 g/dL 13.0-16.5 [facility] Blood lymphocytes/100 leukoc ytesOrdered By: Torey Huffman on 10-14-2022 Lymphocytes/100 WBC (Bld) 32.9 % 19-41 [facility] Blood monocytes/100 leukocyt esOrdered By: Torey Huffman on 10-14-2022 Monocytes/100 WBC (Bld) 8.3 % 0-10 [facility] Blood platelet mean volumeOr dered By: Torey Huffman on 10-14-2022 Platelet mean volume (Bld) [Entitic vol] 10.3 fL 6.2-12.0 [facility] Determination of erythrocyte mean corpuscular volume (MCV)Ordered By: Torey Huffman on 10-14-2022 MCV (RBC) [Entitic vol] 83.2 fL 80-94 [facility] Hematocrit Auto (Bld) [Volum e fraction]Ordered By: Torey Huffman on 10-14-2022 Hematocrit (Bld) [Volume fraction] 34.2 % 40-54 [facility] - Chemistry and C hemistry - challengeOrdered By: Torey Huffman on 10-14-2022 CO2 [Moles/Vol] 28.0 mmol/L 21.0-32.0 [facility] Urea nitrogen/Creatinine [Mass ratio] 48.4 mg/mg 10-20 [facility] - Hematology and Cell countsOrdered By: Torey Huffman on 10-14-2022 Erythrocyte distribution width (RBC) [Entitic vol] 41.8 fL 35.1-43.9 [facility] Erythrocyte distribution width (RBC) [Ratio] 13.7 % 11.6-14.6 [facility] Immature granulocytes/100 WBC (Bld) 0.300 % 0.0-0.9 [facility] Comment on above: IG% - Immature Granu locytes (promyelocytes, myelocytes and metamyelocytes) > 1% indicates that a LEFT SHIFT is Present. MCH (RBC) [Entitic mass] 27.3 pg 27.0-32.0 [facility] Nucleated RBC/100 WBC (Bld) [Ratio] 0 % 0-5 [facility] MCHC Auto (RBC) [Mass/Vol]Or dered By: Torey Huffman on 10-14-2022 MCHC (RBC) [Mass/Vol] 32.7 g/dL 32-36 [facility] No Panel InformationOrdered By: Torey Huffman on 10-14-2022 Estimated GFR (MDRD) Amer 444 mL/min >60 [facility] Comment on above: GFR Calc Estimated GFR (MDRD) Non-Af Amer 367 mL/min >60 [facility] Comment on above: Non- GFR Calc Platelets bldOrdered By: Mellissa Huffman on 10-14-2022 Platelets (Bld) [#/Vol] 211 10*3/uL 150-450 [facility] Serum or plasma calcium jacinta urement (mass/volume)Ordered By: Torey Huffman on 10-14-2022 Calcium [Mass/Vol] 8.6 mg/dL 8.5-10.1 [facility] Serum or plasma creatinine m easurement (mass/volume)Ordered By: Torey Huffman on 10-14-2022 Creatinine [Mass/Vol] 0.29 mg/dL 0.70-1.30 [facility] Comment on above: The validity of the calculated GFR & GFRAA in patients over 70 years has not been determined. Clinical correlation is essential. Serum or plasma urea nitroge n measurement (mass/volume)Ordered By: Torey Huffman on 10-14-2022 Urea nitrogen [Mass/Vol] 14 mg/dL 7-18 [facility] Thin prep Papanicolaou smear with manual screeningOrdered By: Torey Huffman on 10-14-2022 Thin prep Papanicolaou smear with manual screening 6 5-15 [facility] Absolute lymphocyte countOrd ered By: Chente Conn on 09-14-2022 Lymphocytes Auto (Unsp spec) [#/Vol] 1.95 10*3/uL 0.83-4.51 [facility] Basophil percentageOrdered B y: Chente Conn on 09-14-2022 Basophil percentage 21.5 ug/mL 10.0-40.0 [facility] Basophils/100 WBC (Bld) 0.3 % 0-1 [facility] Chloride [Moles/Vol] 104 mmol/L 98-107 [facility] Eosinophils/100 WBC (Bld) 3.7 % 0-5 [facility] Glucose [Mass/Vol] 91 mg/dL 74-106 [facility] Neutrophils (Bld) [#/Vol] 3.3 10*3/uL 2.0-7.7 [facility] Neutrophils/100 WBC (Bld) 54.7 % 47-70 [facility] Potassium [Moles/Vol] 4.0 mmol/L 3.5-5.1 [facility] Sodium [Moles/Vol] 138 mmol/L 136-145 [facility] WBC (Bld) [#/Vol] 6.0 10*3/uL 4.4-11.0 [facility] Blood erythrocytes count (nu mber/volume)Ordered By: Chente Conn on 09-14-2022 RBC (Bld) [#/Vol] 3.87 10*6/uL 4.6-6.2 [facility] Blood hemoglobin measurement (mass/volume)Ordered By: Chente Conn on 09-14-2022 Hemoglobin (Bld) [Mass/Vol] 10.5 g/dL 13.0-16.5 [facility] Blood lymphocytes/100 leukoc ytesOrdered By: Chente Conn on 09-14-2022 Lymphocytes/100 WBC (Bld) 32.4 % 19-41 [facility] Blood monocytes/100 leukocyt esOrdered By: Chente Conn on 09-14-2022 Monocytes/100 WBC (Bld) 8.7 % 0-10 [facility] Blood platelet mean volumeOr dered By: Chente Conn on 09-14-2022 Platelet mean volume (Bld) [Entitic vol] 10.2 fL 6.2-12.0 [facility] Determination of erythrocyte mean corpuscular volume (MCV)Ordered By: Chente Conn on 09-14-2022 MCV (RBC) [Entitic vol] 86.8 fL 80-94 [facility] Hematocrit Auto (Bld) [Volum e fraction]Ordered By: Chente Conn on 09-14-2022 Hematocrit (Bld) [Volume fraction] 33.6 % 40-54 [facility] - Chemistry and C hemistry - challengeOrdered By: Chente Conn on 09-14-2022 CO2 [Moles/Vol] 30.0 mmol/L 21.0-32.0 [facility] Urea nitrogen/Creatinine [Mass ratio] 65.6 mg/mg 10-20 [facility] - Hematology and Cell countsOrdered By: Chente Conn on 09-14-2022 Erythrocyte distribution width (RBC) [Entitic vol] 44.9 fL 35.1-43.9 [facility] Erythrocyte distribution width (RBC) [Ratio] 14.1 % 11.6-14.6 [facility] Immature granulocytes/100 WBC (Bld) 0.200 % 0.0-0.9 [facility] Comment on above: IG% - Immature Granu locytes (promyelocytes, myelocytes and metamyelocytes) > 1% indicates that a LEFT SHIFT is Present. MCH (RBC) [Entitic mass] 27.1 pg 27.0-32.0 [facility] Nucleated RBC/100 WBC (Bld) [Ratio] 0 % 0-5 [facility] MCHC Auto (RBC) [Mass/Vol]Or dered By: Chente Conn on 09-14-2022 MCHC (RBC) [Mass/Vol] 31.3 g/dL 32-36 [facility] No Panel InformationOrdered By: Chente Conn on 09-14-2022 Estimated GFR (MDRD) Amer 540 mL/min >60 [facility] Comment on above: GFR Calc Estimated GFR (MDRD) Non-Af Amer 447 mL/min >60 [facility] Comment on above: Non- GFR Calc Platelets bldOrdered By: Darwin Conn on 09-14-2022 Platelets (Bld) [#/Vol] 197 10*3/uL 150-450 [facility] Serum or plasma calcium jacinta urement (mass/volume)Ordered By: Chente Conn on 09-14-2022 Calcium [Mass/Vol] 8.2 mg/dL 8.5-10.1 [facility] Serum or plasma creatinine m easurement (mass/volume)Ordered By: Chente Conn on 09-14-2022 Creatinine [Mass/Vol] 0.24 mg/dL 0.70-1.30 [facility] Comment on above: The validity of the calculated GFR & GFRAA in patients over 70 years has not been determined. Clinical correlation is essential. Serum or plasma urea nitroge n measurement (mass/volume)Ordered By: Chente Conn on 09-14-2022 Urea nitrogen [Mass/Vol] 16 mg/dL 7-18 [facility] Thin prep Papanicolaou smear with manual screeningOrdered By: Chente Conn on 09-14-2022 Thin prep Papanicolaou smear with manual screening 4 5-15 [facility] Absolute lymphocyte countOrd ered By: Torey Huffman on 08-17-2022 Lymphocytes Auto (Unsp spec) [#/Vol] 2.34 10*3/uL 0.83-4.51 [facility] Basophil percentageOrdered B y: Torey Huffman on 08-17-2022 Basophils/100 WBC (Bld) 0.3 % 0-1 [facility] Chloride [Moles/Vol] 103 mmol/L 98-107 [facility] Eosinophils/100 WBC (Bld) 3.6 % 0-5 [facility] Glucose [Mass/Vol] 87 mg/dL 74-106 [facility] Neutrophils (Bld) [#/Vol] 2.9 10*3/uL 2.0-7.7 [facility] Neutrophils/100 WBC (Bld) 47.8 % 47-70 [facility] Potassium [Moles/Vol] 3.9 mmol/L 3.5-5.1 [facility] Sodium [Moles/Vol] 137 mmol/L 136-145 [facility] WBC (Bld) [#/Vol] 6.1 10*3/uL 4.4-11.0 [facility] Blood erythrocytes count (nu mber/volume)Ordered By: Torey Huffman on 08-17-2022 RBC (Bld) [#/Vol] 3.97 10*6/uL 4.6-6.2 [facility] Blood hemoglobin measurement (mass/volume)Ordered By: Torey Huffman on 08-17-2022 Hemoglobin (Bld) [Mass/Vol] 10.9 g/dL 13.0-16.5 [facility] Blood lymphocytes/100 leukoc ytesOrdered By: Torey Huffman on 08-17-2022 Lymphocytes/100 WBC (Bld) 38.1 % 19-41 [facility] Blood monocytes/100 leukocyt esOrdered By: Torey Huffman on 08-17-2022 Monocytes/100 WBC (Bld) 9.9 % 0-10 [facility] Blood platelet mean volumeOr dered By: Torey Huffman on 08-17-2022 Platelet mean volume (Bld) [Entitic vol] 10.0 fL 6.2-12.0 [facility] Determination of erythrocyte mean corpuscular volume (MCV)Ordered By: Torey Huffman on 08-17-2022 MCV (RBC) [Entitic vol] 86.1 fL 80-94 [facility] Hematocrit Auto (Bld) [Volum e fraction]Ordered By: Torey Huffman on 08-17-2022 Hematocrit (Bld) [Volume fraction] 34.2 % 40-54 [facility] - Chemistry and C hemistry - challengeOrdered By: Torey Huffman on 08-17-2022 CO2 [Moles/Vol] 29.0 mmol/L 21.0-32.0 [facility] Urea nitrogen/Creatinine [Mass ratio] 51.6 mg/mg 10-20 [facility] Laboratory - Hematology and Cell countsOrdered By: Torey Huffman on 08-17-2022 Erythrocyte distribution width (RBC) [Entitic vol] 42.5 fL 35.1-43.9 [facility] Erythrocyte distribution width (RBC) [Ratio] 13.6 % 11.6-14.6 [facility] Immature granulocytes/100 WBC (Bld) 0.300 % 0.0-0.9 [facility] Comment on above: IG% - Immature Granu locytes (promyelocytes, myelocytes and metamyelocytes) > 1% indicates that a LEFT SHIFT is Present. MCH (RBC) [Entitic mass] 27.5 pg 27.0-32.0 [facility] Nucleated RBC/100 WBC (Bld) [Ratio] 0 % 0-5 [facility] MCHC Auto (RBC) [Mass/Vol]Or dered By: Torey Huffman on 08-17-2022 MCHC (RBC) [Mass/Vol] 31.9 g/dL 32-36 [facility] No Panel InformationOrdered By: Torey Huffman on 08-17-2022 Estimated GFR (MDRD) Amer 410 mL/min >60 [facility] Comment on above: GFR Calc Estimated GFR (MDRD) Non-Af Amer 339 mL/min >60 [facility] Comment on above: Non- GFR Calc Platelets bldOrdered By: Mellissa Huffman on 08-17-2022 Platelets (Bld) [#/Vol] 194 10*3/uL 150-450 [facility] Serum or plasma calcium jacinta urement (mass/volume)Ordered By: Torey Huffman on 08-17-2022 Calcium [Mass/Vol] 8.7 mg/dL 8.5-10.1 [facility] Serum or plasma creatinine m easurement (mass/volume)Ordered By: Torey Huffman on 08-17-2022 Creatinine [Mass/Vol] 0.31 mg/dL 0.70-1.30 [facility] Comment on above: The validity of the calculated GFR & GFRAA in patients over 70 years has not been determined. Clinical correlation is essential. Serum or plasma urea nitroge n measurement (mass/volume)Ordered By: Torey Huffman on 08-17-2022 Urea nitrogen [Mass/Vol] 16 mg/dL 7-18 [facility] Thin prep Papanicolaou smear with manual screeningOrdered By: Torey Huffman on 08-17-2022 Thin prep Papanicolaou smear with manual screening 5 5-15 [facility] Absolute lymphocyte countOrd ered By: Torey Huffman on 07-22-2022 Lymphocytes Auto (Unsp spec) [#/Vol] 2.12 10*3/uL 0.83-4.51 [facility] Basophil percentageOrdered B y: Torey Huffman on 07-22-2022 Basophils/100 WBC (Bld) 0.3 % 0-1 [facility] Eosinophils/100 WBC (Bld) 4.9 % 0-5 [facility] Neutrophils (Bld) [#/Vol] 2.9 10*3/uL 2.0-7.7 [facility] Neutrophils/100 WBC (Bld) 49.2 % 47-70 [facility] WBC (Bld) [#/Vol] 5.9 10*3/uL 4.4-11.0 [facility] Basophil percentageOrdered B y: Chente Conn on 07-22-2022 Chloride [Moles/Vol] 102 mmol/L 98-107 [facility] Glucose [Mass/Vol] 80 mg/dL 74-106 [facility] Potassium [Moles/Vol] 3.9 mmol/L 3.5-5.1 [facility] Sodium [Moles/Vol] 139 mmol/L 136-145 [facility] Blood erythrocytes count (nu mber/volume)Ordered By: Torey Huffman on 07-22-2022 RBC (Bld) [#/Vol] 3.96 10*6/uL 4.6-6.2 [facility] Blood hemoglobin measurement (mass/volume)Ordered By: Torey Huffman on 07-22-2022 Hemoglobin (Bld) [Mass/Vol] 11.1 g/dL 13.0-16.5 [facility] Blood lymphocytes/100 leukoc ytesOrdered By: Torey Huffman on 07-22-2022 Lymphocytes/100 WBC (Bld) 35.9 % 19-41 [facility] Blood monocytes/100 leukocyt esOrdered By: Torey Huffman on 07-22-2022 Monocytes/100 WBC (Bld) 9.5 % 0-10 [facility] Blood platelet mean volumeOr dered By: Torey Huffman on 07-22-2022 Platelet mean volume (Bld) [Entitic vol] 9.9 fL 6.2-12.0 [facility] Determination of erythrocyte mean corpuscular volume (MCV)Ordered By: Torey Huffman on 07-22-2022 MCV (RBC) [Entitic vol] 84.8 fL 80-94 [facility] Hematocrit Auto (Bld) [Volum e fraction]Ordered By: Torey Huffman on 07-22-2022 Hematocrit (Bld) [Volume fraction] 33.6 % 40-54 [facility] - Chemistry and C hemistry - challengeOrdered By: Chente Conn on 07-22-2022 CO2 [Moles/Vol] 30.0 mmol/L 21.0-32.0 [facility] Urea nitrogen/Creatinine [Mass ratio] 36.2 mg/mg 10-20 [facility] - Hematology and Cell countsOrdered By: Torey Huffman on 07-22-2022 Erythrocyte distribution width (RBC) [Entitic vol] 42.1 fL 35.1-43.9 [facility] Erythrocyte distribution width (RBC) [Ratio] 13.5 % 11.6-14.6 [facility] Immature granulocytes/100 WBC (Bld) 0.200 % 0.0-0.9 [facility] Comment on above: IG% - Immature Granu locytes (promyelocytes, myelocytes and metamyelocytes) > 1% indicates that a LEFT SHIFT is Present. MCH (RBC) [Entitic mass] 28.0 pg 27.0-32.0 [facility] Nucleated RBC/100 WBC (Bld) [Ratio] 0 % 0-5 [facility] MCHC Auto (RBC) [Mass/Vol]Or dered By: Torey Huffman on 07-22-2022 MCHC (RBC) [Mass/Vol] 33.0 g/dL 32-36 [facility] No Panel InformationOrdered By: Chente Conn on 07-22-2022 Estimated GFR (MDRD) Amer 346 mL/min >60 [facility] Comment on above: GFR Calc Estimated GFR (MDRD) Non-Af Amer 286 mL/min >60 [facility] Comment on above: Non- GFR Calc Platelets bldOrdered By: Mellissa Huffman on 07-22-2022 Platelets (Bld) [#/Vol] 171 10*3/uL 150-450 [facility] Serum or plasma calcium jacinta urement (mass/volume)Ordered By: Chente Conn on 07-22-2022 Calcium [Mass/Vol] 8.6 mg/dL 8.5-10.1 [facility] Serum or plasma creatinine m easurement (mass/volume)Ordered By: Chente Conn on 07-22-2022 Creatinine [Mass/Vol] 0.36 mg/dL 0.70-1.30 [facility] Comment on above: The validity of the calculated GFR & GFRAA in patients over 70 years has not been determined. Clinical correlation is essential. Serum or plasma urea nitroge n measurement (mass/volume)Ordered By: Chente Conn on 07-22-2022 Urea nitrogen [Mass/Vol] 13 mg/dL 7-18 [facility] Thin prep Papanicolaou smear with manual screeningOrdered By: Chente Conn on 07-22-2022 Thin prep Papanicolaou smear with manual screening 7 5-15 [facility] CNPNon 06-30-2022 [facility] Telephone ([facility]) -------- KRISS MICHAEL ([id number]) 1980 M Date Time Provider Department 06/30/22 STOMA THERAPY [facility] During your visit today, we recorded the following information about you: Amber Monreal RN 06/30/2022 3:53 PM Signed [phone] Pt's mother called. She would like to discuss pt's stoma prolapse. Chichi Fowler RN 06/30/2022 4:48 PM Signed [facility] nursing returned patient's mother Yue message regarding [...] e-mail. Mother will give order numbers to [facility]. Also recommended can apply stomahesive powder [...] [R50.9] 01/13/2013 (more content not included)... Normal [facility] Absolute lymphocyte countOrd ered By: Dr. De La Rosa on 06-22-2022 Lymphocytes Auto (Unsp spec) [#/Vol] 1.42 10*3/uL 0.83-4.51 [facility] Basophil percentageOrdered B y: Dr. De La Rosa on 06-22-2022 Basophil percentage 0-5 SEEN /hpf 0-[address] [facility] Basophil percentage 82 mg/dL 74-106 [facility] Basophil percentage 7.2 g/dL 6.4-8.2 [facility] Basophil percentage 0.10 mg/dL 0.20-1.00 [facility] Basophil percentage 139 mmol/L 136-145 [facility] Basophil percentage 3.5 mmol/L 3.5-5.1 [facility] Basophil percentage 107 mmol/L 98-107 [facility] Basophil percentage 1.3 mmol/L 0.4-2.0 [facility] Basophils (Bld) [#/Vol] 6.6 10*3/uL 4.4-11.0 [facility] Basophils (Bld) [#/Vol] 4.5 10*3/uL 2.0-7.7 [facility] Basophils/100 WBC (Bld) 67.2 % 47-70 [facility] Basophils/100 WBC (Bld) 2.4 % 0-5 [facility] Basophils/100 WBC (Bld) 0.2 % 0-1 [facility] Basophil percentageOrdered B y: Siddharth De La Rosa on 06-22-2022 Bilirubin [Mass/Vol] 0.10 mg/dL 0.20-1.[address] [facility] Comment on above: For patients on eltr ombopag therapy, use of Dimension [place] TBIL is not recommended. Chloride [Moles/Vol] 107 mmol/L 98-107 [facility] Eosinophils/100 WBC (Bld) 2.4 % 0-5 [facility] Glucose [Mass/Vol] 82 mg/dL 74-106 [facility] Lactate [Moles/Vol] 1.3 mmol/L 0.4-2.0 [facility] Neutrophils (Bld) [#/Vol] 4.5 10*3/uL 2.0-7.7 [facility] Neutrophils/100 WBC (Bld) 67.2 % 47-70 [facility] Potassium [Moles/Vol] 3.5 mmol/L 3.5-5.1 [facility] Protein [Mass/Vol] 7.2 g/dL 6.4-8.2 [facility] Sodium [Moles/Vol] 139 mmol/L 136-145 [facility] WBC (Bld) [#/Vol] 6.6 10*3/uL 4.4-11.0 [facility] Bilirubin Test strip Ql (U)O rdered By: Dr. De La Rosa on 06-22-2022 Bilirubin Ql (U) Negative Negative [facility] Blood erythrocytes count (nu mber/volume)Ordered By: Dr. De La Rosa on 06-22-2022 RBC (Bld) [#/Vol] 4.21 10*6/uL 4.6-6.2 [facility] Blood hemoglobin measurement (mass/volume)Ordered By: Dr. De La Rosa on 06-22-2022 Hemoglobin (Bld) [Mass/Vol] 11.5 g/dL 13.0-16.5 [facility] Blood lymphocytes/100 leukoc ytesOrdered By: Dr. De La Rosa on 06-22-2022 Lymphocytes/100 WBC (Bld) 21.5 % 19-41 [facility] Blood monocytes/100 leukocyt esOrdered By: Dr. De La Rosa on 06-22-2022 Monocytes/100 WBC (Bld) 8.5 % 0-10 [facility] Blood platelet mean volumeOr dered By: Dr. De La Rosa on 06-22-2022 Platelet mean volume (Bld) [Entitic vol] 10.0 fL 6.2-12.0 [facility] Culture, urineOrdered By: Daina De La Rosa on 06-22-2022 Bacteria identified Cx Nom (U) Culture exhibits no growth. [facility] Determination of erythrocyte mean corpuscular volume (MCV)Ordered By: Dr. De La Rosa on 06-22-2022 MCV (RBC) [Entitic vol] 86.7 fL 80-94 [facility] Hematocrit Auto (Bld) [Volum e fraction]Ordered By: Dr. De La Rosa on 06-22-2022 Hematocrit (Bld) [Volume fraction] 36.5 % 40-54 [facility] INR in Blood by Coagulation assayOrdered By: Dr. De La Rosa on 06-22-2022 INR Coag (Bld) [Relative time] 1.0 {INR} [facility] Ketones Test strip Ql (U)Ord ered By: Dr. De La Rosa on 06-22-2022 Ketones Ql (U) 5 mg/dl Negative [facility] - Chemistry and C hemistry - challengeOrdered By: Siddharth De La Rosa on 06-22-2022 ALP [Catalytic activity/Vol] 135 U/L 45-117 [facility] ALT [Catalytic activity/Vol] 19 U/L 16-61 [facility] CO2 [Moles/Vol] 25.0 mmol/L 21.0-32.0 [facility] Globulin (S) [Mass/Vol] 4.3 g/dL 2.2-4.2 [facility] Urea nitrogen/Creatinine [Mass ratio] 48.6 mg/mg 10-20 [facility] - CoagulationOrde red By: Siddharth De La Rosa on 06-22-2022 aPTT Coag (Bld) [Time] 31.6 s 24.1-36.[address] [facility] PT Coag (PPP) [Time] 13.0 s 11.7-14.9 [facility] Laboratory - Hematology and Cell countsOrdered By: Siddharth De La Rosa on 06-22-2022 Erythrocyte distribution width (RBC) [Entitic vol] 45.2 fL 35.1-43.9 [facility] Erythrocyte distribution width (RBC) [Ratio] 14.3 % 11.6-14.6 [facility] Immature granulocytes/100 WBC (Bld) 0.200 % 0.0-0.9 [facility] Comment on above: IG% - Immature Granu locytes (promyelocytes, myelocytes and metamyelocytes) > 1% indicates that a LEFT SHIFT is Present. MCH (RBC) [Entitic mass] 27.3 pg 27.0-32.0 [facility] Nucleated RBC/100 WBC (Bld) [Ratio] 0 % 0-5 [facility] - Microbiology an d Antimicrobial susceptibilityOrdered By: Siddharth De La Rosa on 06-22-2022 Bacteria identified Cx Nom (Bld) No growth in 5 days. [facility] MCHC Auto (RBC) [Mass/Vol]Or dered By: Dr. De La Rosa on 06-22-2022 MCHC (RBC) [Mass/Vol] 31.5 g/dL 32-36 [facility] Mucus LM Ql (Urine sed)Order ed By: Dr. De La Rosa on 06-22-2022 Mucus Ql (Urine sed) 0 SEEN /hpf [facility] Nitrite Test strip Ql (U)Ord ered By: Dr. De La Rosa on 06-22-2022 Nitrite Ql (U) Negative Negative [facility] No Panel InformationOrdered By: Siddharth De La Rosa on 06-22-2022 Estimated Creatinine Clearance Calc 366.58 ml/min [facility] Estimated GFR (MDRD) Amer 383 mL/min >60 [facility] Comment on above: GFR Calc Estimated GFR (MDRD) Non-Af Amer 317 mL/min >60 [facility] Comment on above: Non- GFR Calc No Panel InformationOrdered By: Dr. De La Rosa on 06-22-2022 27.3 pg 27.0-32.0 [facility] 14.3 % 11.6-14.6 [facility] 45.2 fl 35.1-43.9 [facility] 0.200 % 0.0-0.9 [facility] 0 % 0-5 [facility] 13.0 SECONDS 11.7-14.9 [facility] 31.6 Seconds 24.1-36.2 [facility] 317 mL/min >60 [facility] 383 mL/min >60 [facility] 366.58 ml/min [facility] 48.6 RATIO 10-20 [facility] 4.3 g/dL 2.2-4.2 [facility] 135 U/L 45-117 [facility] 19 U/L 16-61 [facility] 25.0 mmol/L 21.0-32.0 [facility] Platelets bldOrdered By: Dr. De La Rosa on 06-22-2022 Platelets (Bld) [#/Vol] 202 10*3/uL 150-450 [facility] Protein Test strip Ql (U)Ord ered By: Dr. De La Rosa on 06-22-2022 Protein Ql (U) 30 mg/dl Negative [facility] Serum or plasma albumin jacinta urement (mass/volume)Ordered By: Dr. De La Rosa on 06-22-2022 Albumin [Mass/Vol] 2.9 g/dL 3.2-5.0 [facility] Serum or plasma albumin/glob ulin mass ratioOrdered By: Dr. De La Rosa on 06-22-2022 Albumin/Globulin [Mass ratio] 0.7 {ratio} 0.9-2.4 [facility] Serum or plasma calcium jacinta urement (mass/volume)Ordered By: Dr. De La Rosa on 06-22-2022 Calcium [Mass/Vol] 7.6 mg/dL 8.5-10.1 [facility] Serum or plasma creatinine m easurement (mass/volume)Ordered By: Dr. De La Rosa on 06-22-2022 Creatinine [Mass/Vol] 0.33 mg/dL 0.70-1.30 [facility] Comment on above: The validity of the calculated GFR & GFRAA in patients over 70 years has not been determined. Clinical correlation is essential. Serum or plasma urea nitroge n measurement (mass/volume)Ordered By: Dr. De La Rosa on 06-22-2022 Urea nitrogen [Mass/Vol] 16 mg/dL 7-18 [facility] Squamous epithelial cells de tection in urine sediment by light microscopyOrdered By: Dr. De La Rosa on 06-22-2022 Epithelial cells.squamous LM Ql (Urine sed) 0-5 SEEN /hpf 0-5 [facility] Thin prep Papanicolaou smear with manual screeningOrdered By: Dr. De La Rosa on 05-01-2023 Thin prep Papanicolaou smear with manual screening 16 U/L 15-37 [facility] Thin prep Papanicolaou smear with manual screening 7 5-15 [facility] Urine blood detectionOrdered By: Dr. De La Rosa on 06-22-2022 RBC Ql (U) Negative Negative [facility] RBC Ql (U) 0 SEEN /hpf 0-5 [facility] Urine clarityOrdered By: Dr. De La Rosa on 06-22-2022 Clarity (U) Sl Cldy Clear [facility] Urine color determinationOrd ered By: Dr. eD La Rosa on 06-22-2022 Color (U) Yellow Yellow [facility] Urine glucose detectionOrder ed By: Dr. De La Rosa on 06-22-2022 Glucose Ql (U) Normal mg/dl Normal [facility] Urine leukocyte esterase det ection by dipstickOrdered By: Dr. De La Rosa on 06-22-2022 Leukocyte esterase Test strip Ql (U) 25 /ul Negative [facility] Urine pHOrdered By: Dr. Lianne vieira on 06-22-2022 pH (U) 8.0 [pH] 5.0 - 8.0 [facility] Urine sediment bacteria coun t by microscopy (number/high power field)Ordered By: Dr. De La Rosa on 06-22-2022 Bacteria LM.HPF (Urine sed) [#/Area] 0 /[HPF] None Seen [facility] Urine specific gravity measu rementOrdered By: Dr. De La Rosa on 06-22-2022 Specific gravity (U) [Rel density] 1.010 1.002-1.030 [facility] Urobilinogen Auto test strip Ql (U)Ordered By: Dr. De La Rosa on 06-22-2022 Urobilinogen Ql (U) Normal mg/dl Normal [facility] CNNURSEon 06-15-2022 CNNURSE Nurse Visit (JAYNA) -------- KRISS MICHAEL ([id number]) 1980 Date Time Provider Department 06/15/22 2:00 PM STOMA THERAPY [facility] During your visit today, we recorded the following information about you: Cassie Cui RN 06/15/2022 3:50 PM Addendum The [address] [address] Patient: Kriss Michael Patient Address: [address] [place] [address] Dr Araujo [facility] Preferred Gender: male Date of : 1980 Type of Stoma: End Descending Colostomy Diagnosis: Constipation K59.0 OSTOMY SUPPLY ORDER FORM [employer] SenSura [place] MAXI Drainable Pouch with Soft Outlet Transparent Cut-to-fit 4 #[id number] 30 day use - 1 Box [employer] Bed Drainage Bag #[id number] 30 day use-2 bags Central Scheduler #5070 30 day use 1 Joint Machine Operator Tonia Hollihesive #7704 30 day use - 2 Boxes Procare Abdominal binder (62-74) #[id number] 30 day use - 2 Binders OR Procare Abdominal binder (45-62) #[id number] 30 day use - 2 Binders Refills: 11 Attending Physician: Dr. Leavitt For immediate authorization, please contact the physician?s office. [facility] Nurse: VALERIANO Peters, CWOCN Addendum by: VALERIANO Virgen, CWOCN SIGNATURE: Cassie Cui RN PATIENT NAME: Kriss Michael DATE: June 15, 2022 TIME: 3:34 PM CONTACT #: [phone] Cassie Cui RN 06/15/2022 6:05 PM Signed [...] Requested samples from [employer] for Coloplast [employer] [place] MAXI Drainable pouch with soft outlet #[id number]. Order form provided. Also discussed use of [...] effluent Current pouching system: Jazzmine Cohesive StomaWrap, Carrington New Image flat flange with tape collar (cutting surface up to 3 1/2), high volume output pouch Current wearing time: 1 day Recommendations: Skin Care: Apply ConvaTec Stomahesive powder to irritated or denuded skin, brush away excess. 3M No sting skin barrier film. Pouching System: After reducing prolapse, applied Carrington Hollihesive long wedges to peristomal skin, Coloplast [...] Inject intravenou (more content not included)... Normal [facility] Absolute lymphocyte countOrd ered By: Dr. Munoz on 06-12-2022 Lymphocytes Auto (Unsp spec) [#/Vol] 2.18 10*3/uL 0.83-4.51 [facility] Basophil percentageOrdered B y: Dr. Munoz on 06-12-2022 Basophil percentage 90 mg/dL 74-106 [facility] Basophil percentage 135 mmol/L 136-145 [facility] Basophil percentage 3.7 mmol/L 3.5-5.1 [facility] Basophil percentage 103 mmol/L 98-107 [facility] Basophils (Bld) [#/Vol] 6.1 10*3/uL 4.4-11.0 [facility] Basophils (Bld) [#/Vol] 3.1 10*3/uL 2.0-7.7 [facility] Basophils/100 WBC (Bld) 0.5 % 0-1 [facility] Basophils/100 WBC (Bld) 50.9 % 47-70 [facility] Basophils/100 WBC (Bld) 3.3 % 0-5 [facility] Chloride [Moles/Vol] 103 mmol/L 98-107 [facility] Eosinophils/100 WBC (Bld) 3.3 % 0-5 [facility] Glucose [Mass/Vol] 90 mg/dL 74-106 [facility] Neutrophils (Bld) [#/Vol] 3.1 10*3/uL 2.0-7.7 [facility] Neutrophils/100 WBC (Bld) 50.9 % 47-70 [facility] Potassium [Moles/Vol] 3.7 mmol/L 3.5-5.1 [facility] Sodium [Moles/Vol] 135 mmol/L 136-145 [facility] WBC (Bld) [#/Vol] 6.1 10*3/uL 4.4-11.0 [facility] Blood erythrocytes count (nu mber/volume)Ordered By: Dr. Munoz on 06-12-2022 RBC (Bld) [#/Vol] 4.08 10*6/uL 4.6-6.2 [facility] Blood hemoglobin measurement (mass/volume)Ordered By: Dr. Munoz on 06-12-2022 Hemoglobin (Bld) [Mass/Vol] 11.2 g/dL 13.0-16.5 [facility] Blood lymphocytes/100 leukoc ytesOrdered By: Dr. Munoz on 06-12-2022 Lymphocytes/100 WBC (Bld) 35.9 % 19-41 [facility] Blood monocytes/100 leukocyt esOrdered By: Dr. Munoz on 06-12-2022 Monocytes/100 WBC (Bld) 8.1 % 0-10 [facility] Blood platelet mean volumeOr dered By: Dr. Munoz on 06-12-2022 Platelet mean volume (Bld) [Entitic vol] 9.8 fL 6.2-12.0 [facility] Determination of erythrocyte mean corpuscular volume (MCV)Ordered By: Dr. Munoz on 06-12-2022 MCV (RBC) [Entitic vol] 85.0 fL 80-94 [facility] Hematocrit Auto (Bld) [Volum e fraction]Ordered By: Dr. Munoz on 06-12-2022 Hematocrit (Bld) [Volume fraction] 34.7 % 40-54 [facility] Influenza virus A and B and SARS-CoV-2 (COVID-19) Ag panel - Upper respiratory specimOrdered By: Naveen Munoz on 06-12-2022 SARS-CoV-2 (COVID-19) RNA YAYO+probe Ql (Resp) [facility] Influenza virus A and B and SARS-CoV-2 (COVID-19) Ag panel - Upper respiratory specimOrdered By: Dr. Munoz on 06-12-2022 SARS-CoV-2 (COVID-19) RNA YAYO+probe Ql (Resp) [facility] - Chemistry and C hemistry - challengeOrdered By: Dr. Munoz on 06-12-2022 CO2 [Moles/Vol] 28.0 mmol/L 21.0-32.0 [facility] Urea nitrogen/Creatinine [Mass ratio] 38.9 mg/mg 10-20 [facility] - Hematology and Cell countsOrdered By: Dr. Munoz on 06-12-2022 Erythrocyte distribution width (RBC) [Entitic vol] 45.3 fL 35.1-43.9 [facility] Erythrocyte distribution width (RBC) [Ratio] 14.5 % 11.6-14.6 [facility] Immature granulocytes/100 WBC (Bld) 1.300 % 0.0-0.9 [facility] Comment on above: IG% - Immature Granu locytes (promyelocytes, myelocytes and metamyelocytes) > 1% indicates that a LEFT SHIFT is Present. MCH (RBC) [Entitic mass] 27.5 pg 27.0-32.0 [facility] Nucleated RBC/100 WBC (Bld) [Ratio] 0 % 0-5 [facility] MCHC Auto (RBC) [Mass/Vol]Or dered By: Dr. Munoz on 06-12-2022 MCHC (RBC) [Mass/Vol] 32.3 g/dL 32-36 [facility] No Panel InformationOrdered By: Dr. Munoz on 06-12-2022 Estimated Creatinine Clearance Calc 381.94 ml/min [facility] Estimated GFR (MDRD) Amer 456 mL/min >60 [facility] Comment on above: GFR Calc Estimated GFR (MDRD) Non-Af Amer 377 mL/min >60 [facility] Comment on above: Non- GFR Calc Troponin I High Sensitivity < 3 pg/mL 3.0-78.0 [facility] [facility] Comment on above: Please Note: New Suha t Units and Gender Specific Reference Ranges. For more information see Policy Stat Procedure [place] High Sensitivity Troponin (TNIH) and attachments. 27.5 pg 27.0-32.0 [facility] 14.5 % 11.6-14.6 [facility] 45.3 fl 35.1-43.9 [facility] 1.300 % 0.0-0.9 [facility] 0 % 0-5 [facility] 377 mL/min >60 [facility] 456 mL/min >60 [facility] 381.94 ml/min [facility] 38.9 RATIO 10-20 [facility] < 3 pg/mL 3.0-78.0 [facility] 28.0 mmol/L 21.0-32.0 [facility] Platelets bldOrdered By: Dr. Munoz on 06-12-2022 Platelets (Bld) [#/Vol] 199 10*3/uL 150-450 [facility] Serum or plasma calcium jacinta urement (mass/volume)Ordered By: Dr. Munoz on 06-12-2022 Calcium [Mass/Vol] 8.8 mg/dL 8.5-10.1 [facility] Serum or plasma creatinine m easurement (mass/volume)Ordered By: Dr. Munoz on 06-12-2022 Creatinine [Mass/Vol] 0.28 mg/dL 0.70-1.30 [facility] Comment on above: The validity of the calculated GFR & GFRAA in patients over 70 years has not been determined. Clinical correlation is essential. Serum or plasma urea nitroge n measurement (mass/volume)Ordered By: Dr. Munoz on 06-12-2022 Urea nitrogen [Mass/Vol] 11 mg/dL 7-18 [facility] Thin prep Papanicolaou smear with manual screeningOrdered By: Dr. Munoz on 06-12-2022 Thin prep Papanicolaou smear with manual screening 4 5-15 [facility] Absolute lymphocyte countOrd ered By: Dr. Waite on 06-01-2022 Lymphocytes Auto (Unsp spec) [#/Vol] 2.20 10*3/uL 0.83-4.51 [facility] Basophil percentageOrdered B y: Dr. Waite on 06-01-2022 Basophil percentage 100 mg/dL 74-106 [facility] Basophil percentage 140 mmol/L 136-145 [facility] Basophil percentage 3.6 mmol/L 3.5-5.1 [facility] Basophil percentage 105 mmol/L 98-107 [facility] Basophils (Bld) [#/Vol] 5.2 10*3/uL 4.4-11.0 [facility] Basophils (Bld) [#/Vol] 2.2 10*3/uL 2.0-7.7 [facility] Basophils/100 WBC (Bld) 0.4 % 0-1 [facility] Basophils/100 WBC (Bld) 42.6 % 47-70 [facility] Basophils/100 WBC (Bld) 4.6 % 0-5 [facility] Chloride [Moles/Vol] 105 mmol/L 98-107 [facility] Eosinophils/100 WBC (Bld) 4.6 % 0-5 [facility] Glucose [Mass/Vol] 100 mg/dL 74-106 [facility] Comment on above: Fasting Glucose resu lt from 100 to 125 mg/dL suggests IMPAIRED HOMEOSTASIS per A.D.A. criteria. Neutrophils (Bld) [#/Vol] 2.2 10*3/uL 2.0-7.7 [facility] Neutrophils/100 WBC (Bld) 42.6 % 47-70 [facility] Potassium [Moles/Vol] 3.6 mmol/L 3.5-5.1 [facility] Sodium [Moles/Vol] 140 mmol/L 136-145 [facility] WBC (Bld) [#/Vol] 5.2 10*3/uL 4.4-11.0 [facility] Blood erythrocytes count (nu mber/volume)Ordered By: Dr. Waite on 06-01-2022 RBC (Bld) [#/Vol] 3.90 10*6/uL 4.6-6.2 [facility] Blood hemoglobin measurement (mass/volume)Ordered By: Dr. Waite on 06-01-2022 Hemoglobin (Bld) [Mass/Vol] 11.0 g/dL 13.0-16.5 [facility] Blood lymphocytes/100 leukoc ytesOrdered By: Dr. Waite on 06-01-2022 Lymphocytes/100 WBC (Bld) 42.5 % 19-41 [facility] Blood monocytes/100 leukocyt esOrdered By: Dr. Waite on 06-01-2022 Monocytes/100 WBC (Bld) 9.7 % 0-10 [facility] Blood platelet mean volumeOr dered By: Dr. Waite on 06-01-2022 Platelet mean volume (Bld) [Entitic vol] 10.1 fL 6.2-12.0 [facility] Determination of erythrocyte mean corpuscular volume (MCV)Ordered By: Dr. Waite on 06-01-2022 MCV (RBC) [Entitic vol] 86.4 fL 80-94 [facility] Hematocrit Auto (Bld) [Volum e fraction]Ordered By: Dr. Waite on 06-01-2022 Hematocrit (Bld) [Volume fraction] 33.7 % 40-54 [facility] Laboratory - Chemistry and C hemistry - challengeOrdered By: Dr. Waite on 06-01-2022 CO2 [Moles/Vol] 32.0 mmol/L 21.0-32.0 [facility] Urea nitrogen/Creatinine [Mass ratio] 46.0 mg/mg 10-20 [facility] Laboratory - Hematology and Cell countsOrdered By: Dr. Waite on 06-01-2022 Erythrocyte distribution width (RBC) [Entitic vol] 46.1 fL 35.1-43.9 [facility] Erythrocyte distribution width (RBC) [Ratio] 14.7 % 11.6-14.6 [facility] Immature granulocytes/100 WBC (Bld) 0.200 % 0.0-0.9 [facility] Comment on above: IG% - Immature Granu locytes (promyelocytes, myelocytes and metamyelocytes) > 1% indicates that a LEFT SHIFT is Present. MCH (RBC) [Entitic mass] 28.2 pg 27.0-32.0 [facility] Nucleated RBC/100 WBC (Bld) [Ratio] 0 % 0-5 [facility] Auto (RBC) [Mass/Vol]Or dered By: Dr. Waite on 06-01-2022 MCHC (RBC) [Mass/Vol] 32.6 g/dL 32-36 [facility] No Panel InformationOrdered By: Dr. Waite on 06-01-2022 Estimated GFR (MDRD) Amer 501 mL/min >60 [facility] Comment on above: GFR Calc Estimated GFR (MDRD) Non-Af Amer 414 mL/min >60 [facility] Comment on above: Non- GFR Calc 28.2 pg 27.0-32.0 [facility] 14.7 % 11.6-14.6 [facility] 46.1 fl 35.1-43.9 [facility] 0.200 % 0.0-0.9 [facility] 0 % 0-5 [facility] 414 mL/min >60 [facility] 501 mL/min >60 [facility] 46.0 RATIO 10-20 [facility] 32.0 mmol/L 21.0-32.0 [facility] Platelets bldOrdered By: Dr. Waite on 06-01-2022 Platelets (Bld) [#/Vol] 183 10*3/uL 150-450 [facility] Serum or plasma calcium jacinta urement (mass/volume)Ordered By: Dr. Waite on 06-01-2022 Calcium [Mass/Vol] 8.8 mg/dL 8.5-10.1 [facility] Serum or plasma creatinine m easurement (mass/volume)Ordered By: Dr. Waite on 06-01-2022 Creatinine [Mass/Vol] 0.26 mg/dL 0.70-1.30 [facility] Comment on above: The validity of the calculated GFR & GFRAA in patients over 70 years has not been determined. Clinical correlation is essential. Serum or plasma urea nitroge n measurement (mass/volume)Ordered By: Dr. Waite on 06-01-2022 Urea nitrogen [Mass/Vol] 12 mg/dL 7-18 [facility] Thin prep Papanicolaou smear with manual screeningOrdered By: Dr. Waite on 06-01-2022 Thin prep Papanicolaou smear with manual screening 3 5-15 [facility] Absolute lymphocyte countOrd ered By: Dr. Conn on 05-04-2022 Lymphocytes Auto (Unsp spec) [#/Vol] 1.95 10*3/uL 0.83-4.51 [facility] Basophil percentageOrdered B y: Dr. Conn on 05-04-2022 Basophil percentage 21.8 ug/mL 10.0-40.0 [facility] Basophil percentage 102 mg/dL 74-106 [facility] Basophil percentage 141 mmol/L 136-145 [facility] Basophil percentage 3.5 mmol/L 3.5-5.1 [facility] Basophil percentage 106 mmol/L 98-107 [facility] Basophils (Bld) [#/Vol] 5.5 10*3/uL 4.4-11.0 [facility] Basophils (Bld) [#/Vol] 2.8 10*3/uL 2.0-7.7 [facility] Basophils/100 WBC (Bld) 0.2 % 0-1 [facility] Basophils/100 WBC (Bld) 50.6 % 47-70 [facility] Basophils/100 WBC (Bld) 3.7 % 0-5 [facility] Chloride [Moles/Vol] 106 mmol/L 98-107 [facility] Eosinophils/100 WBC (Bld) 3.7 % 0-5 [facility] Glucose [Mass/Vol] 102 mg/dL 74-106 [facility] Comment on above: Fasting Glucose resu lt from 100 to 125 mg/dL suggests IMPAIRED HOMEOSTASIS per A.D.A. criteria. Neutrophils (Bld) [#/Vol] 2.8 10*3/uL 2.0-7.7 [facility] Neutrophils/100 WBC (Bld) 50.6 % 47-70 [facility] Potassium [Moles/Vol] 3.5 mmol/L 3.5-5.1 [facility] Sodium [Moles/Vol] 141 mmol/L 136-145 [facility] WBC (Bld) [#/Vol] 5.5 10*3/uL 4.4-11.0 [facility] Blood erythrocytes count (nu mber/volume)Ordered By: Dr. Conn on 05-04-2022 RBC (Bld) [#/Vol] 4.00 10*6/uL 4.6-6.2 [facility] Blood hemoglobin measurement (mass/volume)Ordered By: Dr. Conn on 05-04-2022 Hemoglobin (Bld) [Mass/Vol] 11.3 g/dL 13.0-16.5 [facility] Blood lymphocytes/100 leukoc ytesOrdered By: Dr. Conn on 05-04-2022 Lymphocytes/100 WBC (Bld) 35.6 % 19-41 [facility] Blood monocytes/100 leukocyt esOrdered By: Dr. Conn on 05-04-2022 Monocytes/100 WBC (Bld) 9.7 % 0-10 [facility] Blood platelet mean volumeOr dered By: Dr. Conn on 05-04-2022 Platelet mean volume (Bld) [Entitic vol] 10.8 fL 6.2-12.0 [facility] Determination of erythrocyte mean corpuscular volume (MCV)Ordered By: Dr. Conn on 05-04-2022 MCV (RBC) [Entitic vol] 87.3 fL 80-94 [facility] Hematocrit Auto (Bld) [Volum e fraction]Ordered By: Dr. Conn on 05-04-2022 Hematocrit (Bld) [Volume fraction] 34.9 % 40-54 [facility] Laboratory - Chemistry and C hemistry - challengeOrdered By: Dr. Conn on 05-04-2022 CO2 [Moles/Vol] 29.0 mmol/L 21.0-32.0 [facility] Urea nitrogen/Creatinine [Mass ratio] 62.5 mg/mg 10-20 [facility] Laboratory - Hematology and Cell countsOrdered By: Dr. Conn on 05-04-2022 Erythrocyte distribution width (RBC) [Entitic vol] 46.2 fL 35.1-43.9 [facility] Erythrocyte distribution width (RBC) [Ratio] 14.4 % 11.6-14.6 [facility] Immature granulocytes/100 WBC (Bld) 0.200 % 0.0-0.9 [facility] Comment on above: IG% - Immature Granu locytes (promyelocytes, myelocytes and metamyelocytes) > 1% indicates that a LEFT SHIFT is Present. MCH (RBC) [Entitic mass] 28.3 pg 27.0-32.0 [facility] Nucleated RBC/100 WBC (Bld) [Ratio] 0 % 0-5 [facility] MCHC Auto (RBC) [Mass/Vol]Or dered By: Dr. Conn on 05-04-2022 MCHC (RBC) [Mass/Vol] 32.4 g/dL 32-36 [facility] No Panel InformationOrdered By: Dr. Conn on 05-04-2022 Estimated GFR (MDRD) Amer 478 mL/min >60 [facility] Comment on above: GFR Calc Estimated GFR (MDRD) Non-Af Amer 395 mL/min >60 [facility] Comment on above: Non- GFR Calc 28.3 pg 27.0-32.0 [facility] 14.4 % 11.6-14.6 [facility] 46.2 fl 35.1-43.9 [facility] 0.200 % 0.0-0.9 [facility] 0 % 0-5 [facility] 395 mL/min >60 [facility] 478 mL/min >60 [facility] 62.5 RATIO 10-20 [facility] 29.0 mmol/L 21.0-32.0 [facility] Platelets bldOrdered By: Dr. Conn on 05-04-2022 Platelets (Bld) [#/Vol] 180 10*3/uL 150-450 [facility] Serum or plasma calcium jacinta urement (mass/volume)Ordered By: Dr. Conn on 05-04-2022 Calcium [Mass/Vol] 8.6 mg/dL 8.5-10.1 [facility] Serum or plasma creatinine m easurement (mass/volume)Ordered By: Dr. Conn on 05-04-2022 Creatinine [Mass/Vol] 0.27 mg/dL 0.70-1.30 [facility] Comment on above: The validity of the calculated GFR & GFRAA in patients over 70 years has not been determined. Clinical correlation is essential. Serum or plasma transthyreti n measurement (mass/volume)Ordered By: Dr. Conn on 05-04-2022 Prealbumin [Mass/Vol] 24.1 mg/dL 20.0-40.0 [facility] Serum or plasma urea nitroge n measurement (mass/volume)Ordered By: Dr. Conn on 05-04-2022 Urea nitrogen [Mass/Vol] 17 mg/dL 7-18 [facility] Thin prep Papanicolaou smear with manual screeningOrdered By: Dr. Conn on 05-04-2022 Thin prep Papanicolaou smear with manual screening 6 5-15 [facility] CNPNon 04-14-2022 CNPN Telephone ([facility]) -------- KRISS MICHAEL ([id number]) 1980 Date Time Provider Department 04/14/22 Yola LEAVITT During your visit today, we recorded the following information about you: Ebony Boateng 04/14/2022 12:39 PM Signed The patient had a Colostomy done by Dr leavitt. The patient 's mother (POA) States he is having issues with prolapse of colon, would like to see what could be done about this,. [phone] Ashly (mom) Geetha Walter RN 04/14/2022 1:40 [...] Fully Assessed Reason for Visit: Patient Update [1714] Patient Question [9837] Prescriptions as of 04/14/2022 - baclofen (LIORESAL) [...] infection [A4 (more content not included)... Normal [facility] CNPN Telephone ([facility]) -------- KRISS MICHAEL ([id number]) 1980 M Date Time Provider Department 04/14/22 [...] p*04/05/2018 Aspiration (more content not included)... Normal [facility] Absolute lymphocyte countOrd ered By: Dr. Alexandre on 04-01-2022 Lymphocytes Auto (Unsp spec) [#/Vol] 2.64 10*3/uL 0.83-4.51 [facility] Basophil percentageOrdered B y: Dr. Alexadnre on 04-01-2022 Basophil percentage 122 mg/dL 74-106 [facility] Basophil percentage 145 mmol/L 136-145 [facility] Basophil percentage 3.5 mmol/L 3.5-5.1 [facility] Basophil percentage 110 mmol/L 98-107 [facility] Basophils (Bld) [#/Vol] 6.6 10*3/uL 4.4-11.0 [facility] Basophils (Bld) [#/Vol] 3.1 10*3/uL 2.0-7.7 [facility] Basophils/100 WBC (Bld) 0.2 % 0-1 [facility] Basophils/100 WBC (Bld) 46.7 % 47-70 [facility] Basophils/100 WBC (Bld) 2.1 % 0-5 [facility] Chloride [Moles/Vol] 110 mmol/L 98-107 [facility] Eosinophils/100 WBC (Bld) 2.1 % 0-5 [facility] Glucose [Mass/Vol] 122 mg/dL 74-106 [facility] Comment on above: Fasting Glucose resu lt from 100 to 125 mg/dL suggests IMPAIRED HOMEOSTASIS per A.D.A. criteria. Neutrophils (Bld) [#/Vol] 3.1 10*3/uL 2.0-7.7 [facility] Neutrophils/100 WBC (Bld) 46.7 % 47-70 [facility] Potassium [Moles/Vol] 3.5 mmol/L 3.5-5.1 [facility] Sodium [Moles/Vol] 145 mmol/L 136-145 [facility] WBC (Bld) [#/Vol] 6.6 10*3/uL 4.4-11.0 [facility] Blood erythrocytes count (nu mber/volume)Ordered By: Dr. Alexandre on 04-01-2022 RBC (Bld) [#/Vol] 3.33 10*6/uL 4.6-6.2 [facility] Blood hemoglobin measurement (mass/volume)Ordered By: Dr. Alexandre on 04-01-2022 Hemoglobin (Bld) [Mass/Vol] 9.2 g/dL 13.0-16.5 [facility] Blood lymphocytes/100 leukoc ytesOrdered By: Dr. Alexandre on 04-01-2022 Lymphocytes/100 WBC (Bld) 39.9 % 19-41 [facility] Blood monocytes/100 leukocyt esOrdered By: Dr. Alexandre on 04-01-2022 Monocytes/100 WBC (Bld) 10.0 % 0-10 [facility] Blood platelet mean volumeOr dered By: Dr. Alexandre on 04-01-2022 Platelet mean volume (Bld) [Entitic vol] 9.6 fL 6.2-12.0 [facility] Determination of erythrocyte mean corpuscular volume (MCV)Ordered By: Dr. Alexandre on 04-01-2022 MCV (RBC) [Entitic vol] 88.6 fL 80-94 [facility] Hematocrit Auto (Bld) [Volum e fraction]Ordered By: Dr. Alexandre on 04-01-2022 Hematocrit (Bld) [Volume fraction] 29.5 % 40-54 [facility] Laboratory - Chemistry and C hemistry - challengeOrdered By: Dr. Alexandre on 04-01-2022 CO2 [Moles/Vol] 29.0 mmol/L 21.0-32.0 [facility] Urea nitrogen/Creatinine [Mass ratio] 43.7 mg/mg 10-20 [facility] Laboratory - Hematology and Cell countsOrdered By: Dr. Alexandre on 04-01-2022 Erythrocyte distribution width (RBC) [Entitic vol] 48.4 fL 35.1-43.9 [facility] Erythrocyte distribution width (RBC) [Ratio] 15.0 % 11.6-14.6 [facility] Immature granulocytes/100 WBC (Bld) 1.100 % 0.0-0.9 [facility] Comment on above: IG% - Immature Granu locytes (promyelocytes, myelocytes and metamyelocytes) > 1% indicates that a LEFT SHIFT is Present. MCH (RBC) [Entitic mass] 27.6 pg 27.0-32.0 [facility] Nucleated RBC/100 WBC (Bld) [Ratio] 0 % 0-5 [facility] MCHC Auto (RBC) [Mass/Vol]Or dered By: Dr. Alexandre on 04-01-2022 MCHC (RBC) [Mass/Vol] 31.2 g/dL 32-36 [facility] No Panel InformationOrdered By: Dr. Alexandre on 04-01-2022 Estimated Creatinine Clearance Calc 460.75 ml/min [facility] Estimated GFR (MDRD) Amer 583 mL/min >60 [facility] Comment on above: GFR Calc Estimated GFR (MDRD) Non-Af Amer 482 mL/min >60 [facility] Comment on above: Non- GFR Calc 27.6 pg 27.0-32.0 [facility] 15.0 % 11.6-14.6 [facility] 48.4 fl 35.1-43.9 [facility] 1.100 % 0.0-0.9 [facility] 0 % 0-5 [facility] 482 mL/min >60 [facility] 583 mL/min >60 [facility] 460.75 ml/min [facility] 43.7 RATIO 10-20 [facility] 29.0 mmol/L 21.0-32.0 [facility] Platelets bldOrdered By: Dr. Alexandre on 04-01-2022 Platelets (Bld) [#/Vol] 237 10*3/uL 150-450 [facility] Serum or plasma calcium jacinta urement (mass/volume)Ordered By: Dr. Alexandre on 04-01-2022 Calcium [Mass/Vol] 8.2 mg/dL 8.5-10.1 [facility] Serum or plasma creatinine m easurement (mass/volume)Ordered By: Dr. Alexandre on 04-01-2022 Creatinine [Mass/Vol] 0.23 mg/dL 0.70-1.30 [facility] Comment on above: The validity of the calculated GFR & GFRAA in patients over 70 years has not been determined. Clinical correlation is essential. Serum or plasma urea nitroge n measurement (mass/volume)Ordered By: Dr. Alexandre on 04-01-2022 Urea nitrogen [Mass/Vol] 10 mg/dL 7-18 [facility] Thin prep Papanicolaou smear with manual screeningOrdered By: Dr. Alexandre on 04-01-2022 Thin prep Papanicolaou smear with manual screening 6 5-15 [facility] Basophil percentageOrdered B y: Dr. Dillard on 03-30-2022 Basophil percentage 7.2 g/dL 6.4-8.2 [facility] Basophil percentage 0.20 mg/dL 0.20-1.00 [facility] Bilirubin [Mass/Vol] 0.20 mg/dL 0.20-1.00 [facility] Comment on above: For patients on eltr ombopag therapy, use of Dimension [place] TBIL is not recommended. Protein [Mass/Vol] 7.2 g/dL 6.4-8.2 [facility] Laboratory - Chemistry and C hemistry - challengeOrdered By: Dr. Dillard on 03-30-2022 ALP [Catalytic activity/Vol] 79 U/L 45-117 [facility] ALT [Catalytic activity/Vol] 19 U/L 16-61 [facility] Globulin (S) [Mass/Vol] 4.5 g/dL 2.2-4.2 [facility] Laboratory - Microbiology an d Antimicrobial susceptibilityOrdered By: Dr. De La Torre on 03-30-2022 Bacteria identified Cx Nom (Bld) No growth in 5 days. [facility] No Panel InformationOrdered By: Dr. Dillard on 03-30-2022 4.5 g/dL 2.2-4.2 [facility] 79 U/L 45-117 [facility] 19 U/L 16-61 [facility] No Panel InformationOrdered By: Dr. De La Torre on 03-30-2022 No growth in 5 days. [facility] Serum or plasma albumin jacinta urement (mass/volume)Ordered By: Dr. Dillard on 03-30-2022 Albumin [Mass/Vol] 2.7 g/dL 3.2-5.0 [facility] Serum or plasma albumin/glob ulin mass ratioOrdered By: Dr. Dillard on 03-30-2022 Albumin/Globulin [Mass ratio] 0.6 {ratio} 0.9-2.4 [facility] Thin prep Papanicolaou smear with manual screeningOrdered By: Dr. Dillard on 03-30-2022 Thin prep Papanicolaou smear with manual screening 9 U/L 15-37 [facility] Bacteria identified Respirat ory culture Nom (Unsp spec)Ordered By: Dr. De La Torre on 03-27-2022 Respiratory Culture Proteus mirabilis [facility] Respiratory Culture Streptococcus agalactiae (B) [facility] Microbial respiratory culture Proteus mirabilis [facility] Microbial respiratory culture Streptococcus agalactiae (B) [facility] Basophil percentageOrdered B y: Dr. Dillard on 03-25-2022 Basophil percentage 0.7 mmol/L 0.4-2.0 [facility] Lactate [Moles/Vol] 0.7 mmol/L 0.4-2.0 [facility] Gram stain for investigation of transfusion reactionOrdered By: Dr. De La Torre on 03-25-2022 Microscopic observation Gram stain Nom (Unsp spec) [facility] - Microbiology an d Antimicrobial susceptibilityOrdered By: Dr. Echavarria on 03-25-2022 Respiratory pathogens DNA and RNA 12b panel YAYO+probe (Unsp spec) [facility] Absolute lymphocyte countOrd ered By: Dr. De La Torre on 03-24-2022 Lymphocytes Auto (Unsp spec) [#/Vol] 0.99 10*3/uL 0.83-4.51 [facility] Basophil percentageOrdered B y: Dr. De La Torre on 03-24-2022 Basophil percentage 2.9 mmol/L 0.4-2.0 [facility] Basophil percentage 0-5 SEEN /hpf 0-[address] [facility] Basophil percentage 145 mg/dL 74-106 [facility] Basophil percentage 133 mmol/L 136-145 [facility] Basophil percentage 3.8 mmol/L 3.5-5.1 [facility] Basophil percentage 99 mmol/L 98-107 [facility] Basophils (Bld) [#/Vol] 7.5 10*3/uL 4.4-11.0 [facility] Basophils (Bld) [#/Vol] 6.0 10*3/uL 2.0-7.7 [facility] Basophils/100 WBC (Bld) 0.3 % 0-1 [facility] Basophils/100 WBC (Bld) 79.9 % 47-70 [facility] Basophils/100 WBC (Bld) 1.3 % 0-5 [facility] Chloride [Moles/Vol] 99 mmol/L 98-107 [facility] Eosinophils/100 WBC (Bld) 1.3 % 0-5 [facility] Glucose [Mass/Vol] 145 mg/dL 74-106 [facility] Comment on above: Fasting Glucose resu lt greater than or equal to 126 mg/dL suggests DIABETES MELLITUS per A.D.A. criteria. Lactate [Moles/Vol] 2.7 mmol/L 0.4-2.0 [facility] Comment on above: Critical Result(s) C alled at: 18:44:06 03/24/2022 by: MARIBEL SEARS [facility] [place] [employer]. Results read back by same. Neutrophils (Bld) [#/Vol] 6.0 10*3/uL 2.0-7.7 [facility] Neutrophils/100 WBC (Bld) 79.9 % 47-70 [facility] Potassium [Moles/Vol] 3.8 mmol/L 3.5-5.1 [facility] Sodium [Moles/Vol] 133 mmol/L 136-145 [facility] WBC (Bld) [#/Vol] 7.5 10*3/uL 4.4-11.0 [facility] Basophil percentageOrdered B y: Dr. Echavarria on 03-24-2022 Basophil percentage 8.3 g/dL 6.4-8.2 [facility] Basophil percentage 0.30 mg/dL 0.20-1.00 [facility] Bilirubin Test strip Ql (U)O rdered By: Dr. De La Torre on 03-24-2022 Bilirubin Ql (U) Negative Negative [facility] Blood erythrocytes count (nu mber/volume)Ordered By: Dr. De La Torre on 03-24-2022 RBC (Bld) [#/Vol] 4.25 10*6/uL 4.6-6.2 [facility] Blood hemoglobin measurement (mass/volume)Ordered By: Dr. De La Torre on 03-24-2022 Hemoglobin (Bld) [Mass/Vol] 11.5 g/dL 13.0-16.5 [facility] Blood lymphocytes/100 leukoc ytesOrdered By: Dr. De La Torre on 03-24-2022 Lymphocytes/100 WBC (Bld) 13.1 % 19-41 [facility] Blood monocytes/100 leukocyt esOrdered By: Dr. De La Torre on 03-24-2022 Monocytes/100 WBC (Bld) 5.3 % 0-10 [facility] Blood platelet mean volumeOr dered By: Dr. De La Torre on 03-24-2022 Platelet mean volume (Bld) [Entitic vol] 10.4 fL 6.2-12.0 [facility] Determination of erythrocyte mean corpuscular volume (MCV)Ordered By: Dr. De La Torre on 03-24-2022 MCV (RBC) [Entitic vol] 85.4 fL 80-94 [facility] Direct bilirubinOrdered By: Dr. Echavarria on 03-24-2022 Bilirubin.direct [Mass/Vol] 0.07 mg/dL 0.00-0.30 [facility] Hematocrit Auto (Bld) [Volum e fraction]Ordered By: Dr. De La Torre on 03-24-2022 Hematocrit (Bld) [Volume fraction] 36.3 % 40-54 [facility] Influenza virus A and B and SARS-CoV-2 (COVID-19) Ag panel - Upper respiratory specimOrdered By: Dr. De La Torre on 03-24-2022 SARS-CoV-2 (COVID-19) RNA YAYO+probe Ql (Resp) [facility] Ketones Test strip Ql (U)Ord ered By: Dr. De La Torre on 03-24-2022 Ketones Ql (U) 15 mg/dl Negative [facility] Laboratory - Chemistry and C hemistry - challengeOrdered By: Dr. De La Torre on 03-24-2022 CO2 [Moles/Vol] 23.0 mmol/L 21.0-32.0 [facility] Urea nitrogen/Creatinine [Mass ratio] 22.2 mg/mg 10-20 [facility] Laboratory - Hematology and Cell countsOrdered By: Dr. De La Torre on 03-24-2022 Erythrocyte distribution width (RBC) [Entitic vol] 43.3 fL 35.1-43.9 [facility] Erythrocyte distribution width (RBC) [Ratio] 14.0 % 11.6-14.6 [facility] Immature granulocytes/100 WBC (Bld) 0.100 % 0.0-0.9 [facility] Comment on above: IG% - Immature Granu locytes (promyelocytes, myelocytes and metamyelocytes) > 1% indicates that a LEFT SHIFT is Present. MCH (RBC) [Entitic mass] 27.1 pg 27.0-32.0 [facility] Nucleated RBC/100 WBC (Bld) [Ratio] 0 % 0-5 [facility] MCHC Auto (RBC) [Mass/Vol]Or dered By: Dr. De La Torre on 03-24-2022 MCHC (RBC) [Mass/Vol] 31.7 g/dL 32-36 [facility] Mucus LM Ql (Urine sed)Order ed By: Dr. De La Torre on 03-24-2022 Mucus Ql (Urine sed) 0 SEEN /hpf [facility] Nitrite Test strip Ql (U)Ord ered By: Dr. De La Torre on 03-24-2022 Nitrite Ql (U) Negative Negative [facility] No Panel InformationOrdered By: Dr. De La Torre on 03-24-2022 Estimated Creatinine Clearance Calc 154.32 ml/min [facility] Estimated GFR (MDRD) Amer 267 mL/min >60 [facility] Comment on above: GFR Calc Estimated GFR (MDRD) Non-Af Amer 220 mL/min >60 [facility] Comment on above: Non- GFR Calc 27.1 pg 27.0-32.0 [facility] 14.0 % 11.6-14.6 [facility] 43.3 fl 35.1-43.9 [facility] 0.100 % 0.0-0.9 [facility] 0 % 0-5 [facility] 220 mL/min >60 [facility] 267 mL/min >60 [facility] 154.32 ml/min [facility] 22.2 RATIO 10-20 [facility] 23.0 mmol/L 21.0-32.0 [facility] No Panel InformationOrdered By: Dr. Echavarria on 03-24-2022 4.9 g/dL 2.2-4.2 [facility] 137 U/L 45-117 [facility] 20 U/L 16-61 [facility] Platelets bldOrdered By: Dr. De La Torre on 03-24-2022 Platelets (Bld) [#/Vol] 141 10*3/uL 150-450 [facility] Protein Test strip Ql (U)Ord ered By: Dr. De La Torre on 03-24-2022 Protein Ql (U) 30 mg/dl Negative [facility] Serum or plasma albumin jacinta urement (mass/volume)Ordered By: Dr. Echavarria on 03-24-2022 Albumin [Mass/Vol] 3.4 g/dL 3.2-5.0 [facility] Serum or plasma calcium jacinta urement (mass/volume)Ordered By: Dr. De La Torre on 03-24-2022 Calcium [Mass/Vol] 8.6 mg/dL 8.5-10.1 [facility] Serum or plasma creatinine m easurement (mass/volume)Ordered By: Dr. De La Torre on 03-24-2022 Creatinine [Mass/Vol] 0.45 mg/dL 0.70-1.30 [facility] Comment on above: The validity of the calculated GFR & GFRAA in patients over 70 years has not been determined. Clinical correlation is essential. Serum or plasma urea nitroge n measurement (mass/volume)Ordered By: Dr. De La Torre on 03-24-2022 Urea nitrogen [Mass/Vol] 10 mg/dL 7-18 [facility] Squamous epithelial cells de tection in urine sediment by light microscopyOrdered By: Dr. De La Torre on 03-24-2022 Epithelial cells.squamous LM Ql (Urine sed) 0 SEEN /hpf 0-5 [facility] Thin prep Papanicolaou smear with manual screeningOrdered By: Dr. De La Torre on 03-24-2022 Thin prep Papanicolaou smear with manual screening 11 5-15 [facility] Thin prep Papanicolaou smear with manual screeningOrdered By: Dr. Echavarria on 03-24-2022 Thin prep Papanicolaou smear with manual screening 22 U/L 15-37 [facility] Urine blood detectionOrdered By: Dr. De La Torre on 03-24-2022 RBC Ql (U) 10 /ul Negative [facility] RBC Ql (U) 0-5 SEEN /hpf 0-5 [facility] Urine clarityOrdered By: Dr. De La Torre on 03-24-2022 Clarity (U) Clear Clear [facility] Urine color determinationOrd ered By: Dr. De La Torre on 03-24-2022 Color (U) Yellow Yellow [facility] Urine glucose detectionOrder ed By: Dr. De La Torre on 03-24-2022 Glucose Ql (U) Normal mg/dl Normal [facility] Urine leukocyte esterase det ection by dipstickOrdered By: Dr. De La Torre on 03-24-2022 Leukocyte esterase Test strip Ql (U) 25 /ul Negative [facility] Urine pHOrdered By: Dr. Walter hidalgo on 03-24-2022 pH (U) 7.0 [pH] 5.0 - 8.0 [facility] Urine sediment bacteria coun t by microscopy (number/high power field)Ordered By: Dr. De La Torre on 03-24-2022 Bacteria LM.HPF (Urine sed) [#/Area] 0 /[HPF] None Seen [facility] Urine specific gravity measu rementOrdered By: Dr. De La Torre on 03-24-2022 Specific gravity (U) [Rel density] 1.005 1.002-1.030 [facility] Urobilinogen Auto test strip Ql (U)Ordered By: Dr. De La Torre on 03-24-2022 Urobilinogen Ql (U) Normal mg/dl Normal [facility] Absolute lymphocyte countOrd ered By: Dr. Waite on 03-23-2022 Lymphocytes Auto (Unsp spec) [#/Vol] 1.82 10*3/uL 0.83-4.51 [facility] Basophil percentageOrdered B y: Dr. Waite on 03-23-2022 Basophil percentage 104 mg/dL 74-106 [facility] Basophil percentage 139 mmol/L 136-145 [facility] Basophil percentage 3.8 mmol/L 3.5-5.1 [facility] Basophil percentage 104 mmol/L 98-107 [facility] Basophils (Bld) [#/Vol] 6.6 10*3/uL 4.4-11.0 [facility] Basophils (Bld) [#/Vol] 3.9 10*3/uL 2.0-7.7 [facility] Basophils/100 WBC (Bld) 0.2 % 0-1 [facility] Basophils/100 WBC (Bld) 59.9 % 47-70 [facility] Basophils/100 WBC (Bld) 3.8 % 0-5 [facility] Chloride [Moles/Vol] 104 mmol/L 98-107 [facility] Eosinophils/100 WBC (Bld) 3.8 % 0-5 [facility] Glucose [Mass/Vol] 104 mg/dL 74-106 [facility] Comment on above: Fasting Glucose resu lt from 100 to 125 mg/dL suggests IMPAIRED HOMEOSTASIS per A.D.A. criteria. Neutrophils (Bld) [#/Vol] 3.9 10*3/uL 2.0-7.7 [facility] Neutrophils/100 WBC (Bld) 59.9 % 47-70 [facility] Potassium [Moles/Vol] 3.8 mmol/L 3.5-5.1 [facility] Sodium [Moles/Vol] 139 mmol/L 136-145 [facility] WBC (Bld) [#/Vol] 6.6 10*3/uL 4.4-11.0 [facility] Blood erythrocytes count (nu mber/volume)Ordered By: Dr. Waite on 03-23-2022 RBC (Bld) [#/Vol] 4.00 10*6/uL 4.6-6.2 [facility] Blood hemoglobin measurement (mass/volume)Ordered By: Dr. Waite on 03-23-2022 Hemoglobin (Bld) [Mass/Vol] 10.8 g/dL 13.0-16.5 [facility] Blood lymphocytes/100 leukoc ytesOrdered By: Dr. Waite on 03-23-2022 Lymphocytes/100 WBC (Bld) 27.7 % 19-41 [facility] Blood monocytes/100 leukocyt esOrdered By: Dr. Waite on 03-23-2022 Monocytes/100 WBC (Bld) 7.9 % 0-10 [facility] Blood platelet mean volumeOr dered By: Dr. Waite on 03-23-2022 Platelet mean volume (Bld) [Entitic vol] 10.2 fL 6.2-12.0 [facility] Determination of erythrocyte mean corpuscular volume (MCV)Ordered By: Dr. Waite on 03-23-2022 MCV (RBC) [Entitic vol] 86.0 fL 80-94 [facility] Hematocrit Auto (Bld) [Volum e fraction]Ordered By: Dr. Waite on 03-23-2022 Hematocrit (Bld) [Volume fraction] 34.4 % 40-54 [facility] Laboratory - Chemistry and C hemistry - challengeOrdered By: Dr. Waite on 03-23-2022 CO2 [Moles/Vol] 31.0 mmol/L 21.0-32.0 [facility] Urea nitrogen/Creatinine [Mass ratio] 60.0 mg/mg 10-20 [facility] Laboratory - Hematology and Cell countsOrdered By: Dr. Waite on 03-23-2022 Erythrocyte distribution width (RBC) [Entitic vol] 43.8 fL 35.1-43.9 [facility] Erythrocyte distribution width (RBC) [Ratio] 13.9 % 11.6-14.6 [facility] Immature granulocytes/100 WBC (Bld) 0.500 % 0.0-0.9 [facility] Comment on above: IG% - Immature Granu locytes (promyelocytes, myelocytes and metamyelocytes) > 1% indicates that a LEFT SHIFT is Present. MCH (RBC) [Entitic mass] 27.0 pg 27.0-32.0 [facility] Nucleated RBC/100 WBC (Bld) [Ratio] 0 % 0-5 [facility] MCHC Auto (RBC) [Mass/Vol]Or dered By: Dr. Waite on 03-23-2022 MCHC (RBC) [Mass/Vol] 31.4 g/dL 32-36 [facility] No Panel InformationOrdered By: Dr. Waite on 03-23-2022 Estimated GFR (MDRD) Amer 527 mL/min >60 [facility] Comment on above: GFR Calc Estimated GFR (MDRD) Non-Af Amer 435 mL/min >60 [facility] Comment on above: Non- GFR Calc 27.0 pg 27.0-32.0 [facility] 13.9 % 11.6-14.6 [facility] 43.8 fl 35.1-43.9 [facility] 0.500 % 0.0-0.9 [facility] 0 % 0-5 [facility] 435 mL/min >60 [facility] 527 mL/min >60 [facility] 60.0 RATIO 10-20 [facility] 31.0 mmol/L 21.0-32.0 [facility] Platelets bldOrdered By: Dr. Waite on 03-23-2022 Platelets (Bld) [#/Vol] 169 10*3/uL 150-450 [facility] Serum or plasma calcium jacinta urement (mass/volume)Ordered By: Dr. Waite on 03-23-2022 Calcium [Mass/Vol] 8.3 mg/dL 8.5-10.1 [facility] Serum or plasma creatinine m easurement (mass/volume)Ordered By: Dr. Waite on 03-23-2022 Creatinine [Mass/Vol] 0.25 mg/dL 0.70-1.30 [facility] Comment on above: The validity of the calculated GFR & GFRAA in patients over 70 years has not been determined. Clinical correlation is essential. Serum or plasma urea nitroge n measurement (mass/volume)Ordered By: Dr. Waite on 03-23-2022 Urea nitrogen [Mass/Vol] 15 mg/dL 7-18 [facility] Thin prep Papanicolaou smear with manual screeningOrdered By: Dr. Waite on 03-23-2022 Thin prep Papanicolaou smear with manual screening 4 5-15 [facility] Absolute lymphocyte countOrd ered By: Dr. De La Torre on 02-24-2022 Lymphocytes Auto (Unsp spec) [#/Vol] 2.18 10*3/uL 0.83-4.51 [facility] Basophil percentageOrdered B y: Dr. De La Torre on 02-24-2022 Basophil percentage 110 mg/dL 74-106 [facility] Basophil percentage 8.8 g/dL 6.4-8.2 [facility] Basophil percentage 0.20 mg/dL 0.20-1.00 [facility] Basophil percentage 135 mmol/L 136-145 [facility] Basophil percentage 4.2 mmol/L 3.5-5.1 [facility] Basophil percentage 102 mmol/L 98-107 [facility] Basophils (Bld) [#/Vol] 7.9 10*3/uL 4.4-11.0 [facility] Basophils (Bld) [#/Vol] 4.6 10*3/uL 2.0-7.7 [facility] Basophils/100 WBC (Bld) 0.3 % 0-1 [facility] Basophils/100 WBC (Bld) 58.7 % 47-70 [facility] Basophils/100 WBC (Bld) 4.4 % 0-5 [facility] Bilirubin [Mass/Vol] 0.20 mg/dL 0.20-1.00 [facility] Comment on above: For patients on eltr ombopag therapy, use of Dimension [place] TBIL is not recommended. Chloride [Moles/Vol] 102 mmol/L 98-107 [facility] Eosinophils/100 WBC (Bld) 4.4 % 0-5 [facility] Glucose [Mass/Vol] 110 mg/dL 74-106 [facility] Comment on above: Fasting Glucose resu lt from 100 to 125 mg/dL suggests IMPAIRED HOMEOSTASIS per A.D.A. criteria. Neutrophils (Bld) [#/Vol] 4.6 10*3/uL 2.0-7.7 [facility] Neutrophils/100 WBC (Bld) 58.7 % 47-70 [facility] Potassium [Moles/Vol] 4.2 mmol/L 3.5-5.1 [facility] Protein [Mass/Vol] 8.8 g/dL 6.4-8.2 [facility] Sodium [Moles/Vol] 135 mmol/L 136-145 [facility] WBC (Bld) [#/Vol] 7.9 10*3/uL 4.4-11.0 [facility] Blood erythrocytes count (nu mber/volume)Ordered By: Dr. De La Torre on 02-24-2022 RBC (Bld) [#/Vol] 4.41 10*6/uL 4.6-6.2 [facility] Blood hemoglobin measurement (mass/volume)Ordered By: Dr. De La Torre on 02-24-2022 Hemoglobin (Bld) [Mass/Vol] 12.1 g/dL 13.0-16.5 [facility] Blood lymphocytes/100 leukoc ytesOrdered By: Dr. De La Torre on 02-24-2022 Lymphocytes/100 WBC (Bld) 27.6 % 19-41 [facility] Blood monocytes/100 leukocyt esOrdered By: Dr. De La Torre on 02-24-2022 Monocytes/100 WBC (Bld) 8.7 % 0-10 [facility] Blood platelet mean volumeOr dered By: Dr. De La Torre on 02-24-2022 Platelet mean volume (Bld) [Entitic vol] 9.7 fL 6.2-12.0 [facility] Determination of erythrocyte mean corpuscular volume (MCV)Ordered By: Dr. De La Torre on 02-24-2022 MCV (RBC) [Entitic vol] 85.0 fL 80-94 [facility] Hematocrit Auto (Bld) [Volum e fraction]Ordered By: Dr. De La Torre on 02-24-2022 Hematocrit (Bld) [Volume fraction] 37.5 % 40-54 [facility] Laboratory - Chemistry and C hemistry - challengeOrdered By: Dr. De La Torre on 02-24-2022 ALP [Catalytic activity/Vol] 162 U/L 45-117 [facility] ALT [Catalytic activity/Vol] 23 U/L 16-61 [facility] CO2 [Moles/Vol] 26.0 mmol/L 21.0-32.0 [facility] Globulin (S) [Mass/Vol] 5.4 g/dL 2.2-4.2 [facility] Urea nitrogen/Creatinine [Mass ratio] 34.3 mg/mg 10-20 [facility] Laboratory - Hematology and Cell countsOrdered By: Dr. De La Torre on 02-24-2022 Erythrocyte distribution width (RBC) [Entitic vol] 41.9 fL 35.1-43.9 [facility] Erythrocyte distribution width (RBC) [Ratio] 13.4 % 11.6-14.6 [facility] Immature granulocytes/100 WBC (Bld) 0.300 % 0.0-0.9 [facility] Comment on above: IG% - Immature Granu locytes (promyelocytes, myelocytes and metamyelocytes) > 1% indicates that a LEFT SHIFT is Present. MCH (RBC) [Entitic mass] 27.4 pg 27.0-32.0 [facility] Nucleated RBC/100 WBC (Bld) [Ratio] 0 % 0-5 [facility] MCHC Auto (RBC) [Mass/Vol]Or dered By: Dr. De La Torre on 02-24-2022 MCHC (RBC) [Mass/Vol] 32.3 g/dL 32-36 [facility] No Panel InformationOrdered By: Dr. De La Torre on 02-24-2022 Estimated Creatinine Clearance Calc 169.38 ml/min [facility] Estimated GFR (MDRD) Amer 299 mL/min >60 [facility] Comment on above: GFR Calc Estimated GFR (MDRD) Non-Af Amer 247 mL/min >60 [facility] Comment on above: Non- GFR Calc 27.4 pg 27.0-32.0 [facility] 13.4 % 11.6-14.6 [facility] 41.9 fl 35.1-43.9 [facility] 0.300 % 0.0-0.9 [facility] 0 % 0-5 [facility] 247 mL/min >60 [facility] 299 mL/min >60 [facility] 169.38 ml/min [facility] 34.3 RATIO 10-20 [facility] 5.4 g/dL 2.2-4.2 [facility] 162 U/L 45-117 [facility] 23 U/L 16-61 [facility] 26.0 mmol/L 21.0-32.0 [facility] Platelets bldOrdered By: Dr. De La Torre on 02-24-2022 Platelets (Bld) [#/Vol] 210 10*3/uL 150-450 [facility] Serum or plasma albumin jacinta urement (mass/volume)Ordered By: Dr. De La Torre on 02-24-2022 Albumin [Mass/Vol] 3.4 g/dL 3.2-5.0 [facility] Serum or plasma albumin/glob ulin mass ratioOrdered By: Dr. De La Torre on 02-24-2022 Albumin/Globulin [Mass ratio] 0.6 {ratio} 0.9-2.4 [facility] Serum or plasma calcium jacinta urement (mass/volume)Ordered By: Dr. De La Torre on 02-24-2022 Calcium [Mass/Vol] 9.0 mg/dL 8.5-10.1 [facility] Serum or plasma creatinine m easurement (mass/volume)Ordered By: Dr. De La Torre on 02-24-2022 Creatinine [Mass/Vol] 0.41 mg/dL 0.70-1.30 [facility] Comment on above: The validity of the calculated GFR & GFRAA in patients over 70 years has not been determined. Clinical correlation is essential. Serum or plasma urea nitroge n measurement (mass/volume)Ordered By: Dr. De La Torre on 02-24-2022 Urea nitrogen [Mass/Vol] 14 mg/dL 7-18 [facility] Thin prep Papanicolaou smear with manual screeningOrdered By: Dr. De La Torre on 02-24-2022 Thin prep Papanicolaou smear with manual screening 11 U/L 15-37 [facility] Thin prep Papanicolaou smear with manual screening 7 5-15 [facility] Absolute lymphocyte countOrd ered By: Dr. Waite on 02-06-2022 Lymphocytes Auto (Unsp spec) [#/Vol] 1.84 10*3/uL 0.83-4.51 [facility] Basophil percentageOrdered B y: Dr. Waite on 02-06-2022 Basophil percentage 113 mg/dL 74-106 [facility] Basophil percentage 138 mmol/L 136-145 [facility] Basophil percentage 3.8 mmol/L 3.5-5.1 [facility] Basophil percentage 103 mmol/L 98-107 [facility] Basophils (Bld) [#/Vol] 7.8 10*3/uL 4.4-11.0 [facility] Basophils (Bld) [#/Vol] 5.1 10*3/uL 2.0-7.7 [facility] Basophils/100 WBC (Bld) 0.1 % 0-1 [facility] Basophils/100 WBC (Bld) 65.4 % 47-70 [facility] Basophils/100 WBC (Bld) 4.0 % 0-5 [facility] Chloride [Moles/Vol] 103 mmol/L 98-107 [facility] Eosinophils/100 WBC (Bld) 4.0 % 0-5 [facility] Glucose [Mass/Vol] 113 mg/dL 74-106 [facility] Comment on above: Fasting Glucose resu lt from 100 to 125 mg/dL suggests IMPAIRED HOMEOSTASIS per A.D.A. criteria. Neutrophils (Bld) [#/Vol] 5.1 10*3/uL 2.0-7.7 [facility] Neutrophils/100 WBC (Bld) 65.4 % 47-70 [facility] Potassium [Moles/Vol] 3.8 mmol/L 3.5-5.1 [facility] Sodium [Moles/Vol] 138 mmol/L 136-145 [facility] WBC (Bld) [#/Vol] 7.8 10*3/uL 4.4-11.0 [facility] Blood erythrocytes count (nu mber/volume)Ordered By: Dr. Waite on 02-06-2022 RBC (Bld) [#/Vol] 4.00 10*6/uL 4.6-6.2 [facility] Blood hemoglobin measurement (mass/volume)Ordered By: Dr. Waite on 02-06-2022 Hemoglobin (Bld) [Mass/Vol] 11.5 g/dL 13.0-16.5 [facility] Blood lymphocytes/100 leukoc ytesOrdered By: Dr. Waite on 02-06-2022 Lymphocytes/100 WBC (Bld) 23.5 % 19-41 [facility] Blood monocytes/100 leukocyt esOrdered By: Dr. Waite on 02-06-2022 Monocytes/100 WBC (Bld) 6.9 % 0-10 [facility] Blood platelet mean volumeOr dered By: Dr. Waite on 02-06-2022 Platelet mean volume (Bld) [Entitic vol] 9.8 fL 6.2-12.0 [facility] Determination of erythrocyte mean corpuscular volume (MCV)Ordered By: Dr. Waite on 02-06-2022 MCV (RBC) [Entitic vol] 86.0 fL 80-94 [facility] Hematocrit Auto (Bld) [Volum e fraction]Ordered By: Dr. Waite on 02-06-2022 Hematocrit (Bld) [Volume fraction] 34.4 % 40-54 [facility] Laboratory - Chemistry and C hemistry - challengeOrdered By: Dr. Waite on 02-06-2022 CO2 [Moles/Vol] 29.0 mmol/L 21.0-32.0 [facility] Urea nitrogen/Creatinine [Mass ratio] 55.6 mg/mg 10-20 [facility] - Hematology and Cell countsOrdered By: Dr. Waite on 02-06-2022 Erythrocyte distribution width (RBC) [Entitic vol] 43.1 fL 35.1-43.9 [facility] Erythrocyte distribution width (RBC) [Ratio] 13.8 % 11.6-14.6 [facility] Immature granulocytes/100 WBC (Bld) 0.100 % 0.0-0.9 [facility] Comment on above: IG% - Immature Granu locytes (promyelocytes, myelocytes and metamyelocytes) > 1% indicates that a LEFT SHIFT is Present. MCH (RBC) [Entitic mass] 28.8 pg 27.0-32.0 [facility] Nucleated RBC/100 WBC (Bld) [Ratio] 0 % 0-5 [facility] MCHC Auto (RBC) [Mass/Vol]Or dered By: Dr. Waite on 02-06-2022 MCHC (RBC) [Mass/Vol] 33.4 g/dL 32-36 [facility] No Panel InformationOrdered By: Dr. Waite on 02-06-2022 Estimated GFR (MDRD) Amer 482 mL/min >60 [facility] Comment on above: GFR Calc Estimated GFR (MDRD) Non-Af Amer 399 mL/min >60 [facility] Comment on above: Non- GFR Calc 28.8 pg 27.0-32.0 [facility] 13.8 % 11.6-14.6 [facility] 43.1 fl 35.1-43.9 [facility] 0.100 % 0.0-0.9 [facility] 0 % 0-5 [facility] 399 mL/min >60 [facility] 482 mL/min >60 [facility] [facility] 55.6 RATIO 10-20 [facility] 29.0 mmol/L 21.0-32.0 [facility] Platelets bldOrdered By: Dr. Waite on 02-06-2022 Platelets (Bld) [#/Vol] 171 10*3/uL 150-450 [facility] Serum or plasma calcium jacinta urement (mass/volume)Ordered By: Dr. Waite on 02-06-2022 Calcium [Mass/Vol] 8.3 mg/dL 8.5-10.1 [facility] Serum or plasma creatinine m easurement (mass/volume)Ordered By: Dr. Waite on 02-06-2022 Creatinine [Mass/Vol] 0.27 mg/dL 0.70-1.30 [facility] Comment on above: The validity of the calculated GFR & GFRAA in patients over 70 years has not been determined. Clinical correlation is essential. Serum or plasma urea nitroge n measurement (mass/volume)Ordered By: Dr. Waite on 02-06-2022 Urea nitrogen [Mass/Vol] 15 mg/dL 7-18 [facility] Thin prep Papanicolaou smear with manual screeningOrdered By: Dr. Waite on 02-06-2022 Thin prep Papanicolaou smear with manual screening 6 5-15 [facility] Absolute lymphocyte countOrd ered By: Dr. Waite on 01-05-2022 Lymphocytes Auto (Unsp spec) [#/Vol] 2.32 10*3/uL 0.83-4.51 [facility] Basophil percentageOrdered B y: Dr. Waite on 01-05-2022 Basophil percentage 87 mg/dL 74-106 [facility] Basophil percentage 7.5 g/dL 6.4-8.2 [facility] Basophil percentage 0.20 mg/dL 0.20-1.00 [facility] Basophil percentage 139 mmol/L 136-145 [facility] Basophil percentage 4.2 mmol/L 3.5-5.1 [facility] Basophil percentage 102 mmol/L 98-107 [facility] Basophils (Bld) [#/Vol] 6.3 10*3/uL 4.4-11.0 [facility] Basophils (Bld) [#/Vol] 2.9 10*3/uL 2.0-7.7 [facility] Basophils/100 WBC (Bld) 0.5 % 0-1 [facility] Basophils/100 WBC (Bld) 45.8 % 47-70 [facility] Basophils/100 WBC (Bld) 8.0 % 0-5 [facility] Bilirubin [Mass/Vol] 0.20 mg/dL 0.20-1.00 [facility] Comment on above: For patients on eltr ombopag therapy, use of Dimension [place] TBIL is not recommended. Chloride [Moles/Vol] 102 mmol/L 98-107 [facility] Eosinophils/100 WBC (Bld) 8.0 % 0-5 [facility] Glucose [Mass/Vol] 87 mg/dL 74-106 [facility] Neutrophils (Bld) [#/Vol] 2.9 10*3/uL 2.0-7.7 [facility] Neutrophils/100 WBC (Bld) 45.8 % 47-70 [facility] Potassium [Moles/Vol] 4.2 mmol/L 3.5-5.1 [facility] Protein [Mass/Vol] 7.5 g/dL 6.4-8.2 [facility] Sodium [Moles/Vol] 139 mmol/L 136-145 [facility] WBC (Bld) [#/Vol] 6.3 10*3/uL 4.4-11.0 [facility] Blood erythrocytes count (nu mber/volume)Ordered By: Dr. Waite on 01-05-2022 RBC (Bld) [#/Vol] 4.05 10*6/uL 4.6-6.2 [facility] Blood hemoglobin measurement (mass/volume)Ordered By: Dr. Waite on 01-05-2022 Hemoglobin (Bld) [Mass/Vol] 11.6 g/dL 13.0-16.5 [facility] Blood lymphocytes/100 leukoc ytesOrdered By: Dr. Waite on 01-05-2022 Lymphocytes/100 WBC (Bld) 37.0 % 19-41 [facility] Blood monocytes/100 leukocyt esOrdered By: Dr. Waite on 01-05-2022 Monocytes/100 WBC (Bld) 8.5 % 0-10 [facility] Blood platelet mean volumeOr dered By: Dr. Waite on 01-05-2022 Platelet mean volume (Bld) [Entitic vol] 10.0 fL 6.2-12.0 [facility] Determination of erythrocyte mean corpuscular volume (MCV)Ordered By: Dr. Waite on 01-05-2022 MCV (RBC) [Entitic vol] 86.9 fL 80-94 [facility] Hematocrit Auto (Bld) [Volum e fraction]Ordered By: Dr. Waite on 01-05-2022 Hematocrit (Bld) [Volume fraction] 35.2 % 40-54 [facility] Laboratory - Chemistry and C hemistry - challengeOrdered By: Dr. Waite on 01-05-2022 ALP [Catalytic activity/Vol] 126 U/L 45-117 [facility] ALT [Catalytic activity/Vol] 20 U/L 16-61 [facility] CO2 [Moles/Vol] 31.0 mmol/L 21.0-32.0 [facility] Globulin (S) [Mass/Vol] 4.4 g/dL 2.2-4.2 [facility] Urea nitrogen/Creatinine [Mass ratio] 51.7 mg/mg 10-20 [facility] Laboratory - Hematology and Cell countsOrdered By: Dr. Waite on 01-05-2022 Erythrocyte distribution width (RBC) [Entitic vol] 44.0 fL 35.1-43.9 [facility] Erythrocyte distribution width (RBC) [Ratio] 13.8 % 11.6-14.6 [facility] Immature granulocytes/100 WBC (Bld) 0.200 % 0.0-0.9 [facility] Comment on above: IG% - Immature Granu locytes (promyelocytes, myelocytes and metamyelocytes) > 1% indicates that a LEFT SHIFT is Present. MCH (RBC) [Entitic mass] 28.6 pg 27.0-32.0 [facility] Nucleated RBC/100 WBC (Bld) [Ratio] 0 % 0-5 [facility] MCHC Auto (RBC) [Mass/Vol]Or dered By: Dr. Waite on 01-05-2022 MCHC (RBC) [Mass/Vol] 33.0 g/dL 32-36 [facility] No Panel InformationOrdered By: Dr. Waite on 01-05-2022 Estimated GFR (MDRD) Amer 480 mL/min >60 [facility] Comment on above: GFR Calc Estimated GFR (MDRD) Non-Af Amer 397 mL/min >60 [facility] Comment on above: Non- GFR Calc 28.6 pg 27.0-32.0 [facility] 13.8 % 11.6-14.6 [facility] 44.0 fl 35.1-43.9 [facility] 0.200 % 0.0-0.9 [facility] 0 % 0-5 [facility] 397 mL/min >60 [facility] 480 mL/min >60 [facility] 51.7 RATIO 10-20 [facility] 4.4 g/dL 2.2-4.2 [facility] 126 U/L 45-117 [facility] 20 U/L 16-61 [facility] 31.0 mmol/L 21.0-32.0 [facility] Platelets bldOrdered By: Dr. Waite on 01-05-2022 Platelets (Bld) [#/Vol] 165 10*3/uL 150-450 [facility] Serum or plasma albumin jacinta urement (mass/volume)Ordered By: Dr. Waite on 01-05-2022 Albumin [Mass/Vol] 3.1 g/dL 3.2-5.0 [facility] Serum or plasma albumin/glob ulin mass ratioOrdered By: Dr. Waite on 01-05-2022 Albumin/Globulin [Mass ratio] 0.7 {ratio} 0.9-2.4 [facility] Serum or plasma calcium jacinta urement (mass/volume)Ordered By: Dr. Waite on 01-05-2022 Calcium [Mass/Vol] 8.6 mg/dL 8.5-10.1 [facility] Serum or plasma creatinine m easurement (mass/volume)Ordered By: Dr. Waite on 01-05-2022 Creatinine [Mass/Vol] 0.27 mg/dL 0.70-1.30 [facility] Comment on above: The validity of the calculated GFR & GFRAA in patients over 70 years has not been determined. Clinical correlation is essential. Serum or plasma urea nitroge n measurement (mass/volume)Ordered By: Dr. Waite on 01-05-2022 Urea nitrogen [Mass/Vol] 14 mg/dL 7-18 [facility] Thin prep Papanicolaou smear with manual screeningOrdered By: Dr. Waite on 01-05-2022 Thin prep Papanicolaou smear with manual screening 13 U/L 15-37 [facility] Thin prep Papanicolaou smear with manual screening 6 5-15 [facility] Absolute lymphocyte countOrd ered By: Dr. Waite on 12-08-2021 Lymphocytes Auto (Unsp spec) [#/Vol] 2.18 10*3/uL 0.83-4.51 [facility] Basophil percentageOrdered B y: Dr. Waite on 12-08-2021 Basophil percentage 88 mg/dL 74-106 [facility] Basophil percentage 143 mmol/L 136-145 [facility] Basophil percentage 4.2 mmol/L 3.5-5.1 [facility] Basophil percentage 105 mmol/L 98-107 [facility] Basophils (Bld) [#/Vol] 6.4 10*3/uL 4.4-11.0 [facility] Basophils (Bld) [#/Vol] 3.1 10*3/uL 2.0-7.7 [facility] Basophils/100 WBC (Bld) 0.3 % 0-1 [facility] Basophils/100 WBC (Bld) 48.5 % 47-70 [facility] Basophils/100 WBC (Bld) 8.9 % 0-5 [facility] Chloride [Moles/Vol] 105 mmol/L 98-107 [facility] Eosinophils/100 WBC (Bld) 8.9 % 0-5 [facility] Glucose [Mass/Vol] 88 mg/dL 74-106 [facility] Neutrophils (Bld) [#/Vol] 3.1 10*3/uL 2.0-7.7 [facility] Neutrophils/100 WBC (Bld) 48.5 % 47-70 [facility] Potassium [Moles/Vol] 4.2 mmol/L 3.5-5.1 [facility] Sodium [Moles/Vol] 143 mmol/L 136-145 [facility] WBC (Bld) [#/Vol] 6.4 10*3/uL 4.4-11.0 [facility] Blood erythrocytes count (nu mber/volume)Ordered By: Dr. Waite on 12-08-2021 RBC (Bld) [#/Vol] 3.54 10*6/uL 4.6-6.2 [facility] Blood hemoglobin measurement (mass/volume)Ordered By: Dr. Waite on 12-08-2021 Hemoglobin (Bld) [Mass/Vol] 10.0 g/dL 13.0-16.5 [facility] Blood lymphocytes/100 leukoc ytesOrdered By: Dr. Waite on 12-08-2021 Lymphocytes/100 WBC (Bld) 33.9 % 19-41 [facility] Blood monocytes/100 leukocyt esOrdered By: Dr. Waite on 12-08-2021 Monocytes/100 WBC (Bld) 7.9 % 0-10 [facility] Blood platelet mean volumeOr dered By: Dr. Waite on 12-08-2021 Platelet mean volume (Bld) [Entitic vol] 9.9 fL 6.2-12.0 [facility] Determination of erythrocyte mean corpuscular volume (MCV)Ordered By: Dr. Waite on 12-08-2021 MCV (RBC) [Entitic vol] 89.5 fL 80-94 [facility] Hematocrit Auto (Bld) [Volum e fraction]Ordered By: Dr. Waite on 12-08-2021 Hematocrit (Bld) [Volume fraction] 31.7 % 40-54 [facility] Laboratory - Chemistry and C hemistry - challengeOrdered By: Dr. Waite on 12-08-2021 CO2 [Moles/Vol] 29.0 mmol/L 21.0-32.0 [facility] Urea nitrogen/Creatinine [Mass ratio] 48.8 mg/mg 10-20 [facility] Laboratory - Hematology and Cell countsOrdered By: Dr. Waite on 12-08-2021 Erythrocyte distribution width (RBC) [Entitic vol] 44.7 fL 35.1-43.9 [facility] Erythrocyte distribution width (RBC) [Ratio] 13.6 % 11.6-14.6 [facility] Immature granulocytes/100 WBC (Bld) 0.500 % 0.0-0.9 [facility] Comment on above: IG% - Immature Granu locytes (promyelocytes, myelocytes and metamyelocytes) > 1% indicates that a LEFT SHIFT is Present. MCH (RBC) [Entitic mass] 28.2 pg 27.0-32.0 [facility] Nucleated RBC/100 WBC (Bld) [Ratio] 0 % 0-5 [facility] MCHC Auto (RBC) [Mass/Vol]Or dered By: Dr. Waite on 12-08-2021 MCHC (RBC) [Mass/Vol] 31.5 g/dL 32-36 [facility] No Panel InformationOrdered By: Dr. Waite on 12-08-2021 Estimated GFR (MDRD) Amer 450 mL/min >60 [facility] Comment on above: GFR Calc Estimated GFR (MDRD) Non-Af Amer 372 mL/min >60 [facility] Comment on above: Non- GFR Calc 28.2 pg 27.0-32.0 [facility] 13.6 % 11.6-14.6 [facility] 44.7 fl 35.1-43.9 [facility] 0.500 % 0.0-0.9 [facility] 0 % 0-5 [facility] 372 mL/min >60 [facility] 450 mL/min >60 [facility] 48.8 RATIO 10-20 [facility] 29.0 mmol/L 21.0-32.0 [facility] Platelets bldOrdered By: Dr. Waite on 12-08-2021 Platelets (Bld) [#/Vol] 239 10*3/uL 150-450 [facility] Serum or plasma calcium jacinta urement (mass/volume)Ordered By: Dr. Waite on 12-08-2021 Calcium [Mass/Vol] 8.1 mg/dL 8.5-10.1 [facility] Serum or plasma creatinine m easurement (mass/volume)Ordered By: Dr. Waite on 12-08-2021 Creatinine [Mass/Vol] 0.29 mg/dL 0.70-1.30 [facility] Comment on above: The validity of the calculated GFR & GFRAA in patients over 70 years has not been determined. Clinical correlation is essential. Serum or plasma urea nitroge n measurement (mass/volume)Ordered By: Dr. Waite on 12-08-2021 Urea nitrogen [Mass/Vol] 14 mg/dL 7-18 [facility] Thin prep Papanicolaou smear with manual screeningOrdered By: Dr. Waite on 12-08-2021 Thin prep Papanicolaou smear with manual screening 9 5-15 [facility] Absolute lymphocyte countOrd ered By: Dr. Dillard on 12-05-2021 Lymphocytes Auto (Unsp spec) [#/Vol] 1.83 10*3/uL 0.83-4.51 [facility] Basophil percentageOrdered B y: Dr. Dillard on 12-05-2021 Basophil percentage 105 mg/dL 74-106 [facility] Basophil percentage 7.8 g/dL 6.4-8.2 [facility] Basophil percentage 0.20 mg/dL 0.20-1.00 [facility] Basophil percentage 140 mmol/L 136-145 [facility] Basophil percentage 3.8 mmol/L 3.5-5.1 [facility] Basophil percentage 107 mmol/L 98-107 [facility] Basophils (Bld) [#/Vol] 7.0 10*3/uL 4.4-11.0 [facility] Basophils (Bld) [#/Vol] 3.8 10*3/uL 2.0-7.7 [facility] Basophils/100 WBC (Bld) 0.3 % 0-1 [facility] Basophils/100 WBC (Bld) 54.8 % 47-70 [facility] Basophils/100 WBC (Bld) 9.3 % 0-5 [facility] Bilirubin [Mass/Vol] 0.20 mg/dL 0.20-1.00 [facility] Comment on above: For patients on eltr ombopag therapy, use of Dimension [place] TBIL is not recommended. Chloride [Moles/Vol] 107 mmol/L 98-107 [facility] Eosinophils/100 WBC (Bld) 9.3 % 0-5 [facility] Glucose [Mass/Vol] 105 mg/dL 74-106 [facility] Comment on above: Fasting Glucose resu lt from 100 to 125 mg/dL suggests IMPAIRED HOMEOSTASIS per A.D.A. criteria. Neutrophils (Bld) [#/Vol] 3.8 10*3/uL 2.0-7.7 [facility] Neutrophils/100 WBC (Bld) 54.8 % 47-70 [facility] Potassium [Moles/Vol] 3.8 mmol/L 3.5-5.1 [facility] Protein [Mass/Vol] 7.8 g/dL 6.4-8.2 [facility] Sodium [Moles/Vol] 140 mmol/L 136-145 [facility] WBC (Bld) [#/Vol] 7.0 10*3/uL 4.4-11.0 [facility] Blood erythrocytes count (nu mber/volume)Ordered By: Dr. Dillard on 12-05-2021 RBC (Bld) [#/Vol] 3.84 10*6/uL 4.6-6.2 [facility] Blood hemoglobin measurement (mass/volume)Ordered By: Dr. Dillard on 12-05-2021 Hemoglobin (Bld) [Mass/Vol] 10.7 g/dL 13.0-16.5 [facility] Blood lymphocytes/100 leukoc ytesOrdered By: Dr. Dillard on 12-05-2021 Lymphocytes/100 WBC (Bld) 26.3 % 19-41 [facility] Blood monocytes/100 leukocyt esOrdered By: Dr. Dillard on 12-05-2021 Monocytes/100 WBC (Bld) 8.9 % 0-10 [facility] Blood platelet mean volumeOr dered By: Dr. Dillard on 12-05-2021 Platelet mean volume (Bld) [Entitic vol] 10.0 fL 6.2-12.0 [facility] Determination of erythrocyte mean corpuscular volume (MCV)Ordered By: Dr. Dillard on 12-05-2021 MCV (RBC) [Entitic vol] 89.6 fL 80-94 [facility] Hematocrit Auto (Bld) [Volum e fraction]Ordered By: Dr. Dillard on 12-05-2021 Hematocrit (Bld) [Volume fraction] 34.4 % 40-54 [facility] Laboratory - Chemistry and C hemistry - challengeOrdered By: Dr. Dillard on 12-05-2021 ALP [Catalytic activity/Vol] 134 U/L 45-117 [facility] ALT [Catalytic activity/Vol] 24 U/L 16-61 [facility] CO2 [Moles/Vol] 27.0 mmol/L 21.0-32.0 [facility] Globulin (S) [Mass/Vol] 5.0 g/dL 2.2-4.2 [facility] Urea nitrogen/Creatinine [Mass ratio] 47.1 mg/mg 10-20 [facility] Laboratory - Hematology and Cell countsOrdered By: Dr. Dillard on 12-05-2021 Erythrocyte distribution width (RBC) [Entitic vol] 45.1 fL 35.1-43.9 [facility] Erythrocyte distribution width (RBC) [Ratio] 13.8 % 11.6-14.6 [facility] Immature granulocytes/100 WBC (Bld) 0.400 % 0.0-0.9 [facility] Comment on above: IG% - Immature Granu locytes (promyelocytes, myelocytes and metamyelocytes) > 1% indicates that a LEFT SHIFT is Present. MCH (RBC) [Entitic mass] 27.9 pg 27.0-32.0 [facility] Nucleated RBC/100 WBC (Bld) [Ratio] 0 % 0-5 [facility] MCHC Auto (RBC) [Mass/Vol]Or dered By: Dr. Dillard on 12-05-2021 MCHC (RBC) [Mass/Vol] 31.1 g/dL 32-36 [facility] Comment on above: Delta: 32.8 on 12/04 No Panel InformationOrdered By: Dr. Dillard on 12-05-2021 Estimated Creatinine Clearance Calc 269.76 ml/min [facility] Estimated GFR (MDRD) Amer 516 mL/min >60 [facility] Comment on above: GFR Calc Estimated GFR (MDRD) Non-Af Amer 426 mL/min >60 [facility] Comment on above: Non- GFR Calc 27.9 pg 27.0-32.0 [facility] 13.8 % 11.6-14.6 [facility] 45.1 fl 35.1-43.9 [facility] 0.400 % 0.0-0.9 [facility] 0 % 0-5 [facility] 426 mL/min >60 [facility] 516 mL/min >60 [facility] 269.76 ml/min [facility] 47.1 RATIO 10-20 [facility] 5.0 g/dL 2.2-4.2 [facility] 134 U/L 45-117 [facility] 24 U/L 16-61 [facility] 27.0 mmol/L 21.0-32.0 [facility] Platelets bldOrdered By: Dr. Dillard on 12-05-2021 Platelets (Bld) [#/Vol] 181 10*3/uL 150-450 [facility] Serum or plasma albumin jacinta urement (mass/volume)Ordered By: Dr. Dillard on 12-05-2021 Albumin [Mass/Vol] 2.8 g/dL 3.2-5.0 [facility] Serum or plasma albumin/glob ulin mass ratioOrdered By: Dr. Dillard on 12-05-2021 Albumin/Globulin [Mass ratio] 0.6 {ratio} 0.9-2.4 [facility] Serum or plasma calcium jacinta urement (mass/volume)Ordered By: Dr. Dillard on 12-05-2021 Calcium [Mass/Vol] 8.7 mg/dL 8.5-10.1 [facility] Serum or plasma creatinine m easurement (mass/volume)Ordered By: Dr. Dillard on 12-05-2021 Creatinine [Mass/Vol] 0.26 mg/dL 0.70-1.30 [facility] Comment on above: The validity of the calculated GFR & GFRAA in patients over 70 years has not been determined. Clinical correlation is essential. Serum or plasma urea nitroge n measurement (mass/volume)Ordered By: Dr. Dillard on 12-05-2021 Urea nitrogen [Mass/Vol] 12 mg/dL 7-18 [facility] Thin prep Papanicolaou smear with manual screeningOrdered By: Dr. Dillard on 12-05-2021 Thin prep Papanicolaou smear with manual screening 13 U/L 15-37 [facility] Thin prep Papanicolaou smear with manual screening 6 5-15 [facility] Bacteria identified Respirat ory culture Nom (Unsp spec)Ordered By: Dominic Méndez on 12-02-2021 Respiratory Culture Pseudomonas aeroginosa [facility] Microbial respiratory culture Pseudomonas aerogmethodist hospitalsa [facility] Laboratory - Chemistry and C hemistry - challengeOrdered By: Dr. Dillard on 12-02-2021 Magnesium [Mass/Vol] 2.2 mg/dL 1.6-2.6 [facility] No Panel InformationOrdered By: Dr. Dillard on 12-02-2021 2.2 mg/dL 1.6-2.6 [facility] Assessment of wrist artery p atency prior to arterial punctureOrdered By: Dr. Dillard on 12-01-2021 Arterial patency Wrist artery --pre arterial puncture Negative [facility] Base excessOrdered By: Dr. Roxi britton on 12-01-2021 Base excess Calc (BldV) [Moles/Vol] -3 mmol/L -2-2 [facility] Basophil percentageOrdered B y: Dr. Dillard on 12-01-2021 Basophil percentage 1.2 mmol/L 0.4-2.0 [facility] Lactate [Moles/Vol] 1.2 mmol/L 0.4-2.0 [facility] Basophil percentage 21.5 mmol/L 22-26 [facility] Basophils/100 WBC (Bld) 94 % 95-99 [facility] CO2 (BldA) [Partial pressure ]Ordered By: Dr. Dillard on 12-01-2021 CO2 (Bld) [Partial pressure] 31.2 mm[Hg] 35-45 [facility] Gram stain for investigation of transfusion reactionOrdered By: Dominic Méndez on 12-01-2021 Microscopic observation Gram stain Nom (Unsp spec) [facility] Laboratory - Microbiology an d Antimicrobial susceptibilityOrdered By: Dr. Moreira on 12-01-2021 Respiratory pathogens DNA and RNA 12b panel YAYO+probe (Unsp spec) [facility] No Panel InformationOrdered By: Dr. Dillard on 12-01-2021 Blood Gas Liter Flow 3.0 /min [facility] Blood Gas Sample Site R [facility] Blood Gas Specimen Type ART [facility] Blood Gas Total CO2 22 mmol/L [facility] Blood Gas Vent Mode home vent [facility] Oxygen Delivery Device Adult Vent [facility] R [facility] home vent [facility] Adult Vent [facility] 3.0 /min [facility] 22 mmol/L [facility] Oxygen (BldA) [Partial press ure]Ordered By: Dr. Dillard on 12-01-2021 Oxygen (Bld) [Partial pressure] 65 mmHG 75-100 [facility] pH measurementOrdered By: Dr Roxanne Dillard on 12-01-2021 pH (Unsp spec) 7.45 [pH] 7.35-7.45 [facility] Absolute lymphocyte counton 11-30-2021 Lymphocytes Auto (Unsp spec) [#/Vol] 1.55 10*3/uL 0.83-4.51 [facility] Work Phone: Basophil percentageon 2021 Basophils/100 WBC (Bld) 0.3 % 0-1 [facility] Work Phone: [phone] Chloride [Moles/Vol] 104 mmol/L 98-107 [facility] Work Phone: [phone] Eosinophils/100 WBC (Bld) 5.1 % 0-5 [facility] Work Phone: [phone] Glucose [Mass/Vol] 84 mg/dL 74-106 [facility] Work Phone: [phone] Neutrophils (Bld) [#/Vol] 3.6 10*3/uL 2.0-7.7 [facility] Work Phone: [phone] Neutrophils/100 WBC (Bld) 58.6 % 47-70 [facility] Work Phone: [phone] Potassium [Moles/Vol] 3.7 mmol/L 3.5-5.1 [facility]: [phone] Sodium [Moles/Vol] 140 mmol/L 136-145 [facility] Work Phone: [phone] WBC (Bld) [#/Vol] 6.1 10*3/uL 4.4-11.0 [facility] Work Phone: Blood erythrocytes count (nu mber/volume)on 11-30-2021 RBC (Bld) [#/Vol] 4.31 10*6/uL 4.6-6.2 [facility]: Blood hemoglobin measurement (mass/volume)on 11-30-2021 Hemoglobin (Bld) [Mass/Vol] 12.0 g/dL 13.0-16.5 [facility] Work Phone: [phone] Blood lymphocytes/100 leukoc yteson 11-30-2021 Lymphocytes/100 WBC (Bld) 25.6 % 19-41 [facility] Work Phone: [phone] Blood monocytes/100 leukocyt eson 11-30-2021 Monocytes/100 WBC (Bld) 10.2 % 0-10 [facility] Work Phone: Blood platelet mean volumeon 11-30-2021 Platelet mean volume (Bld) [Entitic vol] 9.8 fL 6.2-12.0 [facility] [facility] Work Phone: Determination of erythrocyte mean corpuscular volume (MCV)on 11-30-2021 MCV (RBC) [Entitic vol] 86.8 fL 80-94 [facility] Work Phone: Hematocrit Auto (Bld) [Volum e fraction]on 11-30-2021 Hematocrit (Bld) [Volume fraction] 37.4 % 40-54 [facility] Work Phone: Laboratory - Chemistry and C hemistry - challengeon 11-30-2021 CO2 [Moles/Vol] 28.0 mmol/L 21.0-32.0 [facility] Work Phone: Urea nitrogen/Creatinine [Mass ratio] 35.0 mg/mg 10-20 [facility] Work Phone: Laboratory - Hematology and Cell countson 11-30-2021 Erythrocyte distribution width (RBC) [Entitic vol] 41.7 fL 35.1-43.9 [facility] Work Phone: Erythrocyte distribution width (RBC) [Ratio] 13.2 % 11.6-14.6 [facility] Work Phone: Immature granulocytes/100 WBC (Bld) 0.200 % 0.0-0.9 [facility] Work Phone: Comment on above: IG% - Immature Granu locytes (promyelocytes, myelocytes and metamyelocytes) > 1% indicates that a LEFT SHIFT is Present. MCH (RBC) [Entitic mass] 27.8 pg 27.0-32.0 [facility] Work Phone: Nucleated RBC/100 WBC (Bld) [Ratio] 0 % 0-5 [facility] Work Phone: MCHC Auto (RBC) [Mass/Vol]on 11-30-2021 MCHC (RBC) [Mass/Vol] 32.1 g/dL 32-36 [facility] Work [facility]: No Panel Informationon 11-30 Estimated Creatinine Clearance Calc 357.48 ml/min [facility] Work Phone: Estimated GFR (MDRD) Amer 406 mL/min >60 [facility] Work Phone: Comment on above: GFR Calc Estimated GFR (MDRD) Non-Af Amer 335 mL/min >60 [facility] Work Phone: Comment on above: Non- GFR Calc Platelets bldon 11-30-2021 Platelets (Bld) [#/Vol] 166 10*3/uL 150-450 [facility] Work Phone: Serum or plasma calcium jacinta urement (mass/volume)on 11-30-2021 Calcium [Mass/Vol] 8.7 mg/dL 8.5-10.1 [facility] Work Phone: Serum or plasma creatinine m easurement (mass/volume)on 11-30-2021 Creatinine [Mass/Vol] 0.31 mg/dL 0.70-1.30 [facility] Work Phone: Comment on above: The validity of the calculated GFR & GFRAA in patients over 70 years has not been determined. Clinical correlation is essential. Serum or plasma urea nitroge n measurement (mass/volume)on 11-30-2021 Urea nitrogen [Mass/Vol] 11 mg/dL 7-18 [facility] Work Phone: Thin prep Papanicolaou smear with manual screeningon 11-30-2021 Thin prep Papanicolaou smear with manual screening 8 5-15 [facility] Work Phone: Absolute lymphocyte counton 11-03-2021 Lymphocytes Auto (Unsp spec) [#/Vol] 2.54 10*3/uL 0.83-4.51 [facility] Work Phone: Basophil percentageon 2021 Basophils/100 WBC (Bld) 0.5 % 0-1 [facility] Work Phone: Chloride [Moles/Vol] 102 mmol/L 98-107 [facility] Work Phone: [phone] Eosinophils/100 WBC (Bld) 4.1 % 0-5 [facility] Work Phone: [phone] Glucose [Mass/Vol] 98 mg/dL 74-106 [facility] Work Phone: Neutrophils (Bld) [#/Vol] 3.2 10*3/uL 2.0-7.7 [facility] Work Phone: [phone] Neutrophils/100 WBC (Bld) 47.6 % 47-70 [facility] Work Phone: [phone] Potassium [Moles/Vol] 3.6 mmol/L 3.5-5.1 [facility] Work Phone: [phone] Sodium [Moles/Vol] 138 mmol/L 136-145 [facility] Work Phone: WBC (Bld) [#/Vol] 6.6 10*3/uL 4.4-11.0 [facility] Work Phone: Blood erythrocytes count (nu mber/volume)on 11-03-2021 RBC (Bld) [#/Vol] 4.09 10*6/uL 4.6-6.2 [facility]: Blood hemoglobin measurement (mass/volume)on 11-03-2021 Hemoglobin (Bld) [Mass/Vol] 11.9 g/dL 13.0-16.5 [facility] Work Phone: [phone] Blood lymphocytes/100 leukoc yteson 11-03-2021 Lymphocytes/100 WBC (Bld) 38.4 % 19-41 [facility] Work Phone: [phone] Blood monocytes/100 leukocyt eson 11-03-2021 Monocytes/100 WBC (Bld) 9.2 % 0-10 [facility] Work Phone: Blood platelet mean volumeon 11-03-2021 Platelet mean volume (Bld) [Entitic vol] 10.1 fL 6.2-12.0 [facility] Work Phone: Determination of erythrocyte mean corpuscular volume (MCV)on 11-03-2021 MCV (RBC) [Entitic vol] 88.3 fL 80-94 [facility] Work Phone: Hematocrit Auto (Bld) [Volum e fraction]on 11-03-2021 Hematocrit (Bld) [Volume fraction] 36.1 % 40-54 [facility] Work Phone: Laboratory - Chemistry and C hemistry - challengeon 11-03-2021 CO2 [Moles/Vol] 27.0 mmol/L 21.0-32.0 [facility] Work Phone: Urea nitrogen/Creatinine [Mass ratio] 47.9 mg/mg 10-20 [facility] Work Phone: Laboratory - Hematology and Cell countson 11-03-2021 Erythrocyte distribution width (RBC) [Entitic vol] 44.0 fL 35.1-43.9 [facility] Work Phone: Erythrocyte distribution width (RBC) [Ratio] 13.5 % 11.6-14.6 [facility] Work Phone: Immature granulocytes/100 WBC (Bld) 0.200 % 0.0-0.9 [facility] Work Phone: Comment on above: IG% - Immature Granu locytes (promyelocytes, myelocytes and metamyelocytes) > 1% indicates that a LEFT SHIFT is Present. MCH (RBC) [Entitic mass] 29.1 pg 27.0-32.0 [facility] Work Phone: Nucleated RBC/100 WBC (Bld) [Ratio] 0 % 0-5 [facility] Work Phone: MCHC Auto (RBC) [Mass/Vol]on 11-03-2021 MCHC (RBC) [Mass/Vol] 33.0 g/dL 32-36 [facility] Work [facility]: No Panel Informationon 11-03 Estimated GFR (MDRD) Amer 352 mL/min >60 [facility] Work Phone: Comment on above: GFR Calc Estimated GFR (MDRD) Non-Af Amer 291 mL/min >60 [facility] Work Phone: Comment on above: Non- GFR Calc Platelets bldon 11-03-2021 Platelets (Bld) [#/Vol] 215 10*3/uL 150-450 [facility] Work Phone: Serum or plasma calcium jacinta urement (mass/volume)on 11-03-2021 Calcium [Mass/Vol] 8.9 mg/dL 8.5-10.1 [facility] Work Phone: Serum or plasma creatinine m easurement (mass/volume)on 11-03-2021 Creatinine [Mass/Vol] 0.36 mg/dL 0.70-1.30 [facility] Work Phone: Comment on above: The validity of the calculated GFR & GFRAA in patients over 70 years has not been determined. Clinical correlation is essential. Serum or plasma urea nitroge n measurement (mass/volume)on 11-03-2021 Urea nitrogen [Mass/Vol] 17 mg/dL 7-18 [facility] Work Phone: Thin prep Papanicolaou smear with manual screeningon 11-03-2021 Thin prep Papanicolaou smear with manual screening 9 5-15 [facility] Work Phone: Absolute lymphocyte counton 09-10-2021 Lymphocytes Auto (Unsp spec) [#/Vol] 2.63 10*3/uL 0.83-4.51 [facility] Work Phone: Basophil percentageon 2021 Basophils/100 WBC (Bld) 0.3 % 0-1 [facility] Work Phone: Chloride [Moles/Vol] 102 mmol/L 98-107 [facility] Work Phone: Eosinophils/100 WBC (Bld) 3.9 % 0-5 [facility] Work Phone: Glucose [Mass/Vol] 80 mg/dL 74-106 [facility] Work Phone: Neutrophils (Bld) [#/Vol] 3.5 10*3/uL 2.0-7.7 [facility] Work Phone: Neutrophils/100 WBC (Bld) 48.5 % 47-70 [facility] Work Phone: Potassium [Moles/Vol] 4.1 mmol/L 3.5-5.1 [facility] Work Phone: Sodium [Moles/Vol] 138 mmol/L 136-145 [facility] Work Phone: WBC (Bld) [#/Vol] 7.1 10*3/uL 4.4-11.0 [facility] Work Phone: Blood erythrocytes count (nu mber/volume)on 09-10-2021 RBC (Bld) [#/Vol] 4.00 10*6/uL 4.6-6.2 [facility] Work Phone: Blood hemoglobin measurement (mass/volume)on 09-10-2021 Hemoglobin (Bld) [Mass/Vol] 11.3 g/dL 13.0-16.5 [facility] Work Phone: Blood lymphocytes/100 leukoc yteson 09-10-2021 Lymphocytes/100 WBC (Bld) 36.9 % 19-41 [facility] Work Phone: Blood monocytes/100 leukocyt eson 09-10-2021 Monocytes/100 WBC (Bld) 10.3 % 0-10 [facility] Work Phone: Blood platelet mean volumeon 09-10-2021 Platelet mean volume (Bld) [Entitic vol] 10.7 fL 6.2-12.0 [facility] Work Phone: Determination of erythrocyte mean corpuscular volume (MCV)on 09-10-2021 MCV (RBC) [Entitic vol] 89.5 fL 80-94 [facility] Work Phone: Hematocrit Auto (Bld) [Volum e fraction]on 09-10-2021 Hematocrit (Bld) [Volume fraction] 35.8 % 40-54 [facility] Work Phone: Iron measurement (mass/mass) on 09-10-2021 Iron (Unsp spec) [Mass/Mass] 59 ug/dL 65-175 [facility] Work Phone: [phone] Laboratory - Chemistry and C hemistry - challengeon 09-10-2021 CO2 [Moles/Vol] 30.0 mmol/L 21.0-32.0 [facility] Work Phone: Urea nitrogen/Creatinine [Mass ratio] 71.9 mg/mg 10-20 [facility] Work Phone: Laboratory - Hematology and Cell countson 09-10-2021 Erythrocyte distribution width (RBC) [Entitic vol] 47.7 fL 35.1-43.9 [facility] Work Phone: Erythrocyte distribution width (RBC) [Ratio] 14.6 % 11.6-14.6 [facility] Work Phone: Immature granulocytes/100 WBC (Bld) 0.100 % 0.0-0.9 [facility] Work Phone: Comment on above: IG% - Immature Granu locytes (promyelocytes, myelocytes and metamyelocytes) > 1% indicates that a LEFT SHIFT is Present. MCH (RBC) [Entitic mass] 28.3 pg 27.0-32.0 [facility] Work Phone: Nucleated RBC/100 WBC (Bld) [Ratio] 0 % 0-5 [facility] Work Phone: MCHC Auto (RBC) [Mass/Vol]on 09-10-2021 MCHC (RBC) [Mass/Vol] 31.6 g/dL 32-36 [facility] Work Phone: No Panel Informationon 09-10 Estimated GFR (MDRD) Amer 467 mL/min >60 [facility] Work Phone: Comment on above: GFR Calc Estimated GFR (MDRD) Non-Af Amer 386 mL/min >60 [facility] Work Phone: Comment on above: Non- GFR Calc Platelets bldon 09-10-2021 Platelets (Bld) [#/Vol] 177 10*3/uL 150-450 [facility] Work Phone: Serum or plasma calcium jacinta urement (mass/volume)on 09-10-2021 Calcium [Mass/Vol] 9.0 mg/dL 8.5-10.1 [facility] Work Phone: Serum or plasma creatinine m easurement (mass/volume)on 09-10-2021 Creatinine [Mass/Vol] 0.28 mg/dL 0.70-1.30 [facility] Work Phone: Comment on above: The validity of the calculated GFR & GFRAA in patients over 70 years has not been determined. Clinical correlation is essential. Serum or plasma urea nitroge n measurement (mass/volume)on 09-10-2021 Urea nitrogen [Mass/Vol] 20 mg/dL 7-18 [facility] Work Phone: Thin prep Papanicolaou smear with manual screeningon 09-10-2021 Thin prep Papanicolaou smear with manual screening 6 5-15 [facility] Work Phone: Absolute lymphocyte counton 08-12-2021 Lymphocytes Auto (Unsp spec) [#/Vol] 1.84 10*3/uL 0.83-4.51 [facility] Work Phone: Basophil percentageon 2021 Basophils/100 WBC (Bld) 0.2 % 0-1 [facility] Work Phone: Chloride [Moles/Vol] 103 mmol/L 98-107 [facility] Work Phone: Eosinophils/100 WBC (Bld) 4.6 % 0-5 [facility] Work Phone: Glucose [Mass/Vol] 90 mg/dL 74-106 [facility] Work Phone: Neutrophils (Bld) [#/Vol] 2.4 10*3/uL 2.0-7.7 [facility] Work Phone: Neutrophils/100 WBC (Bld) 48.8 % 47-70 [facility] Work Phone: Potassium [Moles/Vol] 3.8 mmol/L 3.5-5.1 [facility] Work Phone: Sodium [Moles/Vol] 139 mmol/L 136-145 [facility] Work Phone: WBC (Bld) [#/Vol] 5.0 10*3/uL 4.4-11.0 [facility] Work Phone: Blood erythrocytes count (nu mber/volume)on 08-12-2021 RBC (Bld) [#/Vol] 4.09 10*6/uL 4.6-6.2 [facility] Work [facility]: Blood hemoglobin measurement (mass/volume)on 08-12-2021 Hemoglobin (Bld) [Mass/Vol] 11.5 g/dL 13.0-16.5 [facility] Work Phone: Blood lymphocytes/100 leukoc yteson 08-12-2021 Lymphocytes/100 WBC (Bld) 36.8 % 19-41 [facility] Work Phone: Blood monocytes/100 leukocyt eson 08-12-2021 Monocytes/100 WBC (Bld) 9.4 % 0-10 [facility] Work Phone: Blood platelet mean volumeon 08-12-2021 Platelet mean volume (Bld) [Entitic vol] 11.0 fL 6.2-12.0 [facility] Work Phone: Determination of erythrocyte mean corpuscular volume (MCV)on 08-12-2021 MCV (RBC) [Entitic vol] 87.0 fL 80-94 [facility] Work Phone: Hematocrit Auto (Bld) [Volum e fraction]on 08-12-2021 Hematocrit (Bld) [Volume fraction] 35.6 % 40-54 [facility] Work Phone: Laboratory - Chemistry and C hemistry - challengeon 08-12-2021 CO2 [Moles/Vol] 29.0 mmol/L 21.0-32.0 [facility] Work Phone: Urea nitrogen/Creatinine [Mass ratio] 50.8 mg/mg 10-20 [facility] Work Phone: Laboratory - Hematology and Cell countson 08-12-2021 Erythrocyte distribution width (RBC) [Entitic vol] 44.2 fL 35.1-43.9 [facility] Work Phone: Erythrocyte distribution width (RBC) [Ratio] 14.1 % 11.6-14.6 [facility] Work Phone: Immature granulocytes/100 WBC (Bld) 0.200 % 0.0-0.9 [facility] Work Phone: Comment on above: IG% - Immature Granu locytes (promyelocytes, myelocytes and metamyelocytes) > 1% indicates that a LEFT SHIFT is Present. MCH (RBC) [Entitic mass] 28.1 pg 27.0-32.0 [facility] Work Phone: Nucleated RBC/100 WBC (Bld) [Ratio] 0 % 0-5 [facility] Work Phone: MCHC Auto (RBC) [Mass/Vol]on 08-12-2021 MCHC (RBC) [Mass/Vol] 32.3 g/dL 32-36 [facility] Work Phone: No Panel Informationon 08-12 Estimated GFR (MDRD) Amer 405 mL/min >60 [facility] Work Phone: Comment on above: GFR Calc Estimated GFR (MDRD) Non-Af Amer 334 mL/min >60 [facility] Work Phone: Comment on above: Non- GFR Calc Platelets bldon 08-12-2021 Platelets (Bld) [#/Vol] 151 10*3/uL 150-450 [facility] Work Phone: Serum or plasma calcium jacinta urement (mass/volume)on 08-12-2021 Calcium [Mass/Vol] 9.0 mg/dL 8.5-10.1 [facility] Work Phone: Serum or plasma creatinine m easurement (mass/volume)on 08-12-2021 Creatinine [Mass/Vol] 0.32 mg/dL 0.70-1.30 [facility] Work Phone: Comment on above: The validity of the calculated GFR & GFRAA in patients over 70 years has not been determined. Clinical correlation is essential. Serum or plasma urea nitroge n measurement (mass/volume)on 08-12-2021 Urea nitrogen [Mass/Vol] 16 mg/dL 7-18 [facility] Work Phone: Thin prep Papanicolaou smear with manual screeningon 08-12-2021 Thin prep Papanicolaou smear with manual screening 7 5-15 [facility] Work Phone: Absolute lymphocyte counton 07-11-2021 Lymphocytes Auto (Unsp spec) [#/Vol] 2.56 10*3/uL 0.83-4.51 [facility] Work Phone: Basophil percentageon 2021 Basophils/100 WBC (Bld) 0.4 % 0-1 [facility] Work Phone: Chloride [Moles/Vol] 105 mmol/L 98-107 [facility] Work Phone: Eosinophils/100 WBC (Bld) 5.9 % 0-5 [facility] Work Phone: Glucose [Mass/Vol] 85 mg/dL 74-106 [facility] Work Phone: Neutrophils (Bld) [#/Vol] 2.1 10*3/uL 2.0-7.7 [facility] Work Phone: Neutrophils/100 WBC (Bld) 38.0 % 47-70 [facility] Work Phone: Potassium [Moles/Vol] 3.7 mmol/L 3.5-5.1 [facility] Work Phone: Sodium [Moles/Vol] 139 mmol/L 136-145 [facility] Work Phone: WBC (Bld) [#/Vol] 5.6 10*3/uL 4.4-11.0 [facility] Work Phone: Blood erythrocytes count (nu mber/volume)on 07-11-2021 RBC (Bld) [#/Vol] 3.83 10*6/uL 4.6-6.2 [facility] Work [facility]: Blood hemoglobin measurement (mass/volume)on 07-11-2021 Hemoglobin (Bld) [Mass/Vol] 10.8 g/dL 13.0-16.5 [facility] Work Phone: Blood lymphocytes/100 leukoc yteson 07-11-2021 Lymphocytes/100 WBC (Bld) 46.0 % 19-41 [facility] Work Phone: Blood monocytes/100 leukocyt eson 07-11-2021 Monocytes/100 WBC (Bld) 9.7 % 0-10 [facility] Work Phone: Blood platelet mean volumeon 07-11-2021 Platelet mean volume (Bld) [Entitic vol] 10.9 fL 6.2-12.0 [facility] Work Phone: Determination of erythrocyte mean corpuscular volume (MCV)on 07-11-2021 MCV (RBC) [Entitic vol] 88.5 fL 80-94 [facility] Work Phone: Hematocrit Auto (Bld) [Volum e fraction]on 07-11-2021 Hematocrit (Bld) [Volume fraction] 33.9 % 40-54 [facility] Work Phone: Laboratory - Chemistry and C hemistry - challengeon 07-11-2021 CO2 [Moles/Vol] 28.0 mmol/L 21.0-32.0 [facility] Work Phone: Urea nitrogen/Creatinine [Mass ratio] 79.4 mg/mg 10-20 [facility] Work Phone: Laboratory - Hematology and Cell countson 07-11-2021 Erythrocyte distribution width (RBC) [Entitic vol] 44.5 fL 35.1-43.9 [facility] Work Phone: Erythrocyte distribution width (RBC) [Ratio] 13.7 % 11.6-14.6 [facility] Work Phone: Immature granulocytes/100 WBC (Bld) 0.000 % 0.0-0.9 [facility] Work Phone: Comment on above: IG% - Immature Granu locytes (promyelocytes, myelocytes and metamyelocytes) > 1% indicates that a LEFT SHIFT is Present. MCH (RBC) [Entitic mass] 28.2 pg 27.0-32.0 [facility] Work Phone: Nucleated RBC/100 WBC (Bld) [Ratio] 0 % 0-5 [facility] Work Phone: MCHC Auto (RBC) [Mass/Vol]on 07-11-2021 MCHC (RBC) [Mass/Vol] 31.9 g/dL 32-36 [facility] Work Phone: No Panel Informationon 07-11 Estimated GFR (MDRD) Amer 470 mL/min >60 [facility] Work Phone: Comment on above: GFR Calc Estimated GFR (MDRD) Non-Af Amer 388 mL/min >60 [facility] Work Phone: Comment on above: Non- GFR Calc Platelets bldon 07-11-2021 Platelets (Bld) [#/Vol] 163 10*3/uL 150-450 [facility] Work Phone: Serum or plasma calcium jacinta urement (mass/volume)on 07-11-2021 Calcium [Mass/Vol] 8.3 mg/dL 8.5-10.1 [facility] Work Phone: Serum or plasma creatinine m easurement (mass/volume)on 07-11-2021 Creatinine [Mass/Vol] 0.28 mg/dL 0.70-1.30 [facility] Work Phone: Comment on above: The validity of the calculated GFR & GFRAA in patients over 70 years has not been determined. Clinical correlation is essential. Serum or plasma urea nitroge n measurement (mass/volume)on 07-11-2021 Urea nitrogen [Mass/Vol] 22 mg/dL 7-18 [facility] Work Phone: Thin prep Papanicolaou smear with manual screeningon 07-11-2021 Thin prep Papanicolaou smear with manual screening 6 5-15 [facility] Work Phone: Absolute lymphocyte counton 06-11-2021 Lymphocytes Auto (Unsp spec) [#/Vol] 2.71 10*3/uL 0.83-4.51 [facility] Work Phone: Basophil percentageon 2021 Basophils/100 WBC (Bld) 0.5 % 0-1 [facility] Work Phone: Chloride [Moles/Vol] 103 mmol/L 98-107 [facility] Work Phone: Eosinophils/100 WBC (Bld) 5.6 % 0-5 [facility] Work Phone: Glucose [Mass/Vol] 82 mg/dL 74-106 [facility] Work Phone: Neutrophils (Bld) [#/Vol] 2.6 10*3/uL 2.0-7.7 [facility] Work Phone: Neutrophils/100 WBC (Bld) 41.2 % 47-70 [facility] Work Phone: Potassium [Moles/Vol] 4.1 mmol/L 3.5-5.1 [facility] Work Phone: Sodium [Moles/Vol] 140 mmol/L 136-145 [facility] Work Phone: WBC (Bld) [#/Vol] 6.3 10*3/uL 4.4-11.0 [facility] Work Phone: Blood erythrocytes count (nu mber/volume)on 06-11-2021 RBC (Bld) [#/Vol] 4.05 10*6/uL 4.6-6.2 [facility] Work Phone: Blood hemoglobin measurement (mass/volume)on 06-11-2021 Hemoglobin (Bld) [Mass/Vol] 11.4 g/dL 13.0-16.5 [facility] Work Phone: Blood lymphocytes/100 leukoc yteson 06-11-2021 Lymphocytes/100 WBC (Bld) 43.0 % 19-41 [facility] Work Phone: Blood monocytes/100 leukocyt eson 06-11-2021 Monocytes/100 WBC (Bld) 9.5 % 0-10 [facility] Work Phone: [phone] Blood platelet mean volumeon 06-11-2021 Platelet mean volume (Bld) [Entitic vol] 10.4 fL 6.2-12.0 [facility] Work Phone: Determination of erythrocyte mean corpuscular volume (MCV)on 06-11-2021 MCV (RBC) [Entitic vol] 87.2 fL 80-94 [facility] Work Phone: Hematocrit Auto (Bld) [Volum e fraction]on 06-11-2021 Hematocrit (Bld) [Volume fraction] 35.3 % 40-54 [facility] Work Phone: Laboratory - Chemistry and C hemistry - challengeon 06-11-2021 CO2 [Moles/Vol] 32.0 mmol/L 21.0-32.0 [facility] Work Phone: Urea nitrogen/Creatinine [Mass ratio] 71.4 mg/mg 10-20 [facility] Work Phone: Laboratory - Hematology and Cell countson 06-11-2021 Erythrocyte distribution width (RBC) [Entitic vol] 44.3 fL 35.1-43.9 [facility] Work Phone: Erythrocyte distribution width (RBC) [Ratio] 14.0 % 11.6-14.6 [facility] Work Phone: Immature granulocytes/100 WBC (Bld) 0.200 % 0.0-0.9 [facility] Work Phone: Comment on above: IG% - Immature Granu locytes (promyelocytes, myelocytes and metamyelocytes) > 1% indicates that a LEFT SHIFT is Present. MCH (RBC) [Entitic mass] 28.1 pg 27.0-32.0 [facility] Work Phone: Nucleated RBC/100 WBC (Bld) [Ratio] 0 % 0-5 [facility] Work Phone: MCHC Auto (RBC) [Mass/Vol]on 06-11-2021 MCHC (RBC) [Mass/Vol] 32.3 g/dL 32-36 [facility] Work Phone: No Panel Informationon 06-11 Estimated GFR (MDRD) Amer 492 mL/min >60 [facility] Work Phone: Comment on above: GFR Calc Estimated GFR (MDRD) Non-Af Amer 407 mL/min >60 [facility] Work Phone: Comment on above: Non- GFR Calc Platelets bldon 06-11-2021 Platelets (Bld) [#/Vol] 185 10*3/uL 150-450 [facility] Work Phone: Serum or plasma calcium jacinta urement (mass/volume)on 06-11-2021 Calcium [Mass/Vol] 8.7 mg/dL 8.5-10.1 [facility] Work Phone: Serum or plasma creatinine m easurement (mass/volume)on 06-11-2021 Creatinine [Mass/Vol] 0.27 mg/dL 0.70-1.30 [facility] Work Phone: Comment on above: The validity of the calculated GFR & GFRAA in patients over 70 years has not been determined. Clinical correlation is essential. Serum or plasma urea nitroge n measurement (mass/volume)on 06-11-2021 Urea nitrogen [Mass/Vol] 19 mg/dL 7-18 [facility] Work Phone: Thin prep Papanicolaou smear with manual screeningon 06-11-2021 Thin prep Papanicolaou smear with manual screening 5 5-15 [facility] Work Phone: Absolute lymphocyte counton 05-19-2021 Lymphocytes Auto (Unsp spec) [#/Vol] 2.08 10*3/uL 0.83-4.51 [facility] Work Phone: Basophil percentageon 2021 Basophils/100 WBC (Bld) 0.5 % 0-1 [facility] Work Phone: Chloride [Moles/Vol] 104 mmol/L 98-107 [facility] Work Phone: Eosinophils/100 WBC (Bld) 9.4 % 0-5 [facility] Work Phone: Glucose [Mass/Vol] 98 mg/dL 74-106 [facility] Work Phone: Neutrophils (Bld) [#/Vol] 3.2 10*3/uL 2.0-7.7 [facility] Work Phone: Neutrophils/100 WBC (Bld) 49.4 % 47-70 [facility] Work Phone: [phone] Potassium [Moles/Vol] 4.2 mmol/L 3.5-5.1 [facility] Work Phone: [phone] Sodium [Moles/Vol] 136 mmol/L 136-145 [facility] Work Phone: [phone] WBC (Bld) [#/Vol] 6.4 10*3/uL 4.4-11.0 [facility] Work Phone: [phone] Blood erythrocytes count (nu mber/volume)on 05-19-2021 RBC (Bld) [#/Vol] 4.21 10*6/uL 4.6-6.2 [facility] Work Phone: Blood hemoglobin measurement (mass/volume)on 05-19-2021 Hemoglobin (Bld) [Mass/Vol] 11.7 g/dL 13.0-16.5 [facility] Work Phone: Blood lymphocytes/100 leukoc yteson 05-19-2021 Lymphocytes/100 WBC (Bld) 32.4 % 19-41 [facility] Work Phone: [phone] Blood monocytes/100 leukocyt eson 05-19-2021 Monocytes/100 WBC (Bld) 8.1 % 0-10 [facility] Work Phone: Blood platelet adequacy dete ction by light microscopyon 05-19-2021 Platelets LM Ql (Bld) SLT DEC ADEQ [facility] Work Phone: Blood platelet mean volumeon 05-19-2021 Platelet mean volume (Bld) [Entitic vol] 10.3 fL 6.2-12.0 [facility] Work Phone: Determination of erythrocyte mean corpuscular volume (MCV)on 05-19-2021 MCV (RBC) [Entitic vol] 86.7 fL 80-94 [facility] Work Phone: Hematocrit Auto (Bld) [Volum e fraction]on 05-19-2021 Hematocrit (Bld) [Volume fraction] 36.5 % 40-54 [facility] Work Phone: Laboratory - Chemistry and C hemistry - challengeon 05-19-2021 CO2 [Moles/Vol] 26.0 mmol/L 21.0-32.0 [facility] Work Phone: Urea nitrogen/Creatinine [Mass ratio] 32.7 mg/mg 10-20 [facility] Work Phone: Laboratory - Hematology and Cell countson 05-19-2021 Anisocytosis Ql (Bld) RARE [facility] Work Phone: Erythrocyte distribution width (RBC) [Entitic vol] 44.8 fL 35.1-43.9 [facility] Work Phone: Erythrocyte distribution width (RBC) [Ratio] 14.2 % 11.6-14.6 [facility] Work Phone: Immature granulocytes/100 WBC (Bld) 0.200 % 0.0-0.9 [facility] Work Phone: Comment on above: IG% - Immature Granu locytes (promyelocytes, myelocytes and metamyelocytes) > 1% indicates that a LEFT SHIFT is Present. MCH (RBC) [Entitic mass] 27.8 pg 27.0-32.0 [facility] Work Phone: Nucleated RBC/100 WBC (Bld) [Ratio] 0 % 0-5 [facility] Work Phone: MCHC Auto (RBC) [Mass/Vol]on 05-19-2021 MCHC (RBC) [Mass/Vol] 32.1 g/dL 32-36 [facility] Work Phone: No Panel Informationon 05-19 Estimated Creatinine Clearance Calc 189.56 ml/min [facility] Work Phone: Estimated GFR (MDRD) Amer 340 mL/min >60 [facility] Work Phone: Comment on above: GFR Calc Estimated GFR (MDRD) Non-Af Amer 281 mL/min >60 [facility] Work Phone: Comment on above: Non- GFR Calc Platelets bldon 05-19-2021 Platelets (Bld) [#/Vol] 134 10*3/uL 150-450 [facility] Work Phone: RBC morphologyon 05-19-2021 RBC morphology finding Nom (Bld) N CHROM NORMAL NORM C&C [facility] Work Phone: Serum or plasma calcium jacinta urement (mass/volume)on 05-19-2021 Calcium [Mass/Vol] 8.8 mg/dL 8.5-10.1 [facility] Work Phone: Serum or plasma creatinine m easurement (mass/volume)on 05-19-2021 Creatinine [Mass/Vol] 0.37 mg/dL 0.70-1.30 [facility] Work Phone: Comment on above: The validity of the calculated GFR & GFRAA in patients over 70 years has not been determined. Clinical correlation is essential. Serum or plasma urea nitroge n measurement (mass/volume)on 05-19-2021 Urea nitrogen [Mass/Vol] 12 mg/dL 7-18 [facility] Work Phone: Thin prep Papanicolaou smear with manual screeningon 05-19-2021 Thin prep Papanicolaou smear with manual screening 6 5-15 [facility] Work Phone: Absolute lymphocyte counton 05-13-2021 Lymphocytes Auto (Unsp spec) [#/Vol] 3.26 10*3/uL 0.83-4.51 [facility] Work Phone: Basophil percentageon 2021 Basophils/100 WBC (Bld) 0.1 % 0-1 [facility] Work Phone: Chloride [Moles/Vol] 108 mmol/L 98-107 [facility] Work Phone: Eosinophils/100 WBC (Bld) 6.0 % 0-5 [facility] Work Phone: Glucose [Mass/Vol] 107 mg/dL 74-106 [facility] Work Phone: Comment on above: Fasting Glucose resu lt from 100 to 125 mg/dL suggests IMPAIRED HOMEOSTASIS per A.D.A. criteria. Neutrophils (Bld) [#/Vol] 2.9 10*3/uL 2.0-7.7 [facility] Work Phone: Neutrophils/100 WBC (Bld) 39.4 % 47-70 [facility] Work Phone: Potassium [Moles/Vol] 3.8 mmol/L 3.5-5.1 [facility] Work Phone: Sodium [Moles/Vol] 140 mmol/L 136-145 [facility] Work Phone: WBC (Bld) [#/Vol] 7.3 10*3/uL 4.4-11.0 [facility] Work Phone: Blood erythrocytes count (nu mber/volume)on 05-13-2021 RBC (Bld) [#/Vol] 4.06 10*6/uL 4.6-6.2 [facility] Work Phone: Blood hemoglobin measurement (mass/volume)on 05-13-2021 Hemoglobin (Bld) [Mass/Vol] 11.4 g/dL 13.0-16.5 [facility] Work Phone: Blood lymphocytes/100 leukoc yteson 05-13-2021 Lymphocytes/100 WBC (Bld) 44.6 % 19-41 [facility] Work Phone: Blood monocytes/100 leukocyt eson 05-13-2021 Monocytes/100 WBC (Bld) 9.8 % 0-10 [facility] Work Phone: Blood platelet mean volumeon 05-13-2021 Platelet mean volume (Bld) [Entitic vol] 10.6 fL 6.2-12.0 [facility] Work Phone: Determination of erythrocyte mean corpuscular volume (MCV)on 05-13-2021 MCV (RBC) [Entitic vol] 87.4 fL 80-94 [facility] Work Phone: Hematocrit Auto (Bld) [Volum e fraction]on 05-13-2021 Hematocrit (Bld) [Volume fraction] 35.5 % 40-54 [facility] Work Phone: Laboratory - Chemistry and C hemistry - challengeon 05-13-2021 CO2 [Moles/Vol] 29.0 mmol/L 21.0-32.0 [facility] Work Phone: Urea nitrogen/Creatinine [Mass ratio] 46.0 mg/mg 10-20 [facility] Work Phone: Laboratory - Hematology and Cell countson 05-13-2021 Erythrocyte distribution width (RBC) [Entitic vol] 45.3 fL 35.1-43.9 [facility] Work Phone: Erythrocyte distribution width (RBC) [Ratio] 14.2 % 11.6-14.6 [facility] Work Phone: Immature granulocytes/100 WBC (Bld) 0.100 % 0.0-0.9 [facility] Work Phone: Comment on above: IG% - Immature Granu locytes (promyelocytes, myelocytes and metamyelocytes) > 1% indicates that a LEFT SHIFT is Present. MCH (RBC) [Entitic mass] 28.1 pg 27.0-32.0 [facility] Work Phone: Nucleated RBC/100 WBC (Bld) [Ratio] 0.3 % 0-5 [facility] Work Phone: MCHC Auto (RBC) [Mass/Vol]on 05-13-2021 MCHC (RBC) [Mass/Vol] 32.1 g/dL 32-36 [facility] Work [facility]: No Panel Informationon 05-13 Estimated GFR (MDRD) Amer 389 mL/min >60 [facility] Work Phone: Comment on above: GFR Calc Estimated GFR (MDRD) Non-Af Amer 322 mL/min >60 [facility] Work Phone: Comment on above: Non- GFR Calc Platelets bldon 05-13-2021 Platelets (Bld) [#/Vol] 170 10*3/uL 150-450 [facility] Work Phone: Serum or plasma calcium jacinta urement (mass/volume)on 05-13-2021 Calcium [Mass/Vol] 8.9 mg/dL 8.5-10.1 [facility] Work Phone: Serum or plasma creatinine m easurement (mass/volume)on 05-13-2021 Creatinine [Mass/Vol] 0.33 mg/dL 0.70-1.30 [facility] Work Phone: Comment on above: The validity of the calculated GFR & GFRAA in patients over 70 years has not been determined. Clinical correlation is essential. Serum or plasma urea nitroge n measurement (mass/volume)on 05-13-2021 Urea nitrogen [Mass/Vol] 15 mg/dL 7-18 [facility] Work Phone: Thin prep Papanicolaou smear with manual screeningon 05-13-2021 Thin prep Papanicolaou smear with manual screening 3 5-15 [facility] Work Phone: Bronchoalveolar lavage cultu re with Gram stainon 04-28-2021 Respiratory Culture Pseudomonas aeroginosa [facility] Work Phone: Respiratory Culture Streptococcus agalactiae (B) [facility] Work Phone: Respiratory Culture Positive [facility] Work Phone: Gram stain for investigation of transfusion reactionon 04-28-2021 Microscopic observation Gram stain Nom (Unsp spec) [facility] Work Phone: Basophil percentageon 2021 Chloride [Moles/Vol] 105 mmol/L 98-[address] [facility] [address] [facility] Work Phone: Glucose [Mass/Vol] 93 mg/dL 74-106 [facility] Work Phone: Potassium [Moles/Vol] 4.0 mmol/L 3.5-5.1 [facility] Work Phone: Sodium [Moles/Vol] 139 mmol/L 136-145 [facility] Work Phone: WBC (Bld) [#/Vol] 6.8 10*3/uL 4.4-11.0 [facility] Work Phone: Blood erythrocytes count (nu mber/volume)on 04-21-2021 RBC (Bld) [#/Vol] 4.12 10*6/uL 4.6-6.2 [facility] Work Phone: Blood hemoglobin measurement (mass/volume)on 04-21-2021 Hemoglobin (Bld) [Mass/Vol] 12.2 g/dL 13.0-16.5 [facility] Work Phone: Blood platelet mean volumeon 04-21-2021 Platelet mean volume (Bld) [Entitic vol] 11.3 fL 6.2-12.0 [facility] Work Phone: Determination of erythrocyte mean corpuscular volume (MCV)on 04-21-2021 MCV (RBC) [Entitic vol] 86.9 fL 80-94 [facility] Work Phone: Hematocrit Auto (Bld) [Volum e fraction]on 04-21-2021 Hematocrit (Bld) [Volume fraction] 35.8 % 40-54 [facility] Work Phone: Laboratory - Chemistry and C hemistry - challengeon 04-21-2021 CO2 [Moles/Vol] 29.0 mmol/L 21.0-32.0 [facility] Work Phone: Urea nitrogen/Creatinine [Mass ratio] 59.4 mg/mg 10-20 [facility] Work Phone: Laboratory - Hematology and Cell countson 04-21-2021 Erythrocyte distribution width (RBC) [Entitic vol] 43.7 fL 35.1-43.9 [facility] Work Phone: Erythrocyte distribution width (RBC) [Ratio] 13.9 % 11.6-14.6 [facility] Work Phone: MCH (RBC) [Entitic mass] 29.6 pg 27.0-32.0 [facility] Work Phone: MCHC Auto (RBC) [Mass/Vol]on 04-21-2021 MCHC (RBC) [Mass/Vol] 34.1 g/dL 32- [facility] Work Phone: No Panel Informationon 04-21 Estimated GFR (MDRD) Amer 424 mL/min >60 [facility] Work Phone: Comment on above: GFR Calc Estimated GFR (MDRD) Non-Af Amer 350 mL/min >60 [facility] Work Phone: Comment on above: Non- GFR Calc Platelets bldon 04-21-2021 Platelets (Bld) [#/Vol] 185 10*3/uL 150-450 [facility] Work Phone: Serum or plasma calcium jacinta urement (mass/volume)on 04-21-2021 Calcium [Mass/Vol] 8.6 mg/dL 8.5-10.1 [facility] Work Phone: Serum or plasma creatinine m easurement (mass/volume)on 04-21-2021 Creatinine [Mass/Vol] 0.30 mg/dL 0.70-1.30 [facility] Work Phone: Comment on above: The validity of the calculated GFR & GFRAA in patients over 70 years has not been determined. Clinical correlation is essential. Serum or plasma urea nitroge n measurement (mass/volume)on 04-21-2021 Urea nitrogen [Mass/Vol] 18 mg/dL 7-18 [facility] Work Phone: Thin prep Papanicolaou smear with manual screeningon 04-21-2021 Thin prep Papanicolaou smear with manual screening 5 5-15 [facility] Work Phone: Basophil percentageon 2021 Chloride [Moles/Vol] 103 mmol/L 98-107 [facility] Work Phone: Glucose [Mass/Vol] 90 mg/dL 74-106 [facility] Work Phone: Potassium [Moles/Vol] 3.7 mmol/L 3.5-5.1 [facility] Work Phone: Sodium [Moles/Vol] 137 mmol/L 136-145 [facility] Work Phone: WBC (Bld) [#/Vol] 5.6 10*3/uL 4.4-11.0 [facility] Work Phone: Blood erythrocytes count (nu mber/volume)on 03-25-2021 RBC (Bld) [#/Vol] 4.03 10*6/uL 4.6-6.2 [facility] Work Phone: Blood hemoglobin measurement (mass/volume)on 03-25-2021 Hemoglobin (Bld) [Mass/Vol] 11.5 g/dL 13.0-16.5 [facility] Work Phone: Blood platelet mean volumeon 03-25-2021 Platelet mean volume (Bld) [Entitic vol] 10.5 fL 6.2-12.0 [facility] Work Phone: Determination of erythrocyte mean corpuscular volume (MCV)on 03-25-2021 MCV (RBC) [Entitic vol] 86.8 fL 80-94 [facility] Work Phone: Hematocrit Auto (Bld) [Volum e fraction]on 03-25-2021 Hematocrit (Bld) [Volume fraction] 35.0 % 40-54 [facility] Work Phone: Laboratory - Chemistry and C hemistry - challengeon 03-25-2021 CO2 [Moles/Vol] 28.0 mmol/L 21.0-32.0 [facility] Work Phone: Urea nitrogen/Creatinine [Mass ratio] 54.3 mg/mg 10-20 [facility] Work Phone: Laboratory - Hematology and Cell countson 03-25-2021 Erythrocyte distribution width (RBC) [Entitic vol] 44.0 fL 35.1-43.9 [facility] Work Phone: Erythrocyte distribution width (RBC) [Ratio] 13.7 % 11.6-14.6 [facility] Work Phone: MCH (RBC) [Entitic mass] 28.5 pg 27.0-32.0 [facility] Work Phone: MCHC Auto (RBC) [Mass/Vol]on 03-25-2021 MCHC (RBC) [Mass/Vol] 32.9 g/dL 32-36 [facility] Work Phone: No Panel Informationon 03-25 Estimated GFR (MDRD) Amer 359 mL/min >60 [facility] Work Phone: Comment on above: GFR Calc Estimated GFR (MDRD) Non-Af Amer 297 mL/min >60 [facility] Work Phone: Comment on above: Non- GFR Calc Platelets bldon 03-25-2021 Platelets (Bld) [#/Vol] 175 10*3/uL 150-450 [facility] Work Phone: Serum or plasma calcium jacinta urement (mass/volume)on 03-25-2021 Calcium [Mass/Vol] 8.2 mg/dL 8.5-10.1 [facility] Work Phone: Serum or plasma creatinine m easurement (mass/volume)on 03-25-2021 Creatinine [Mass/Vol] 0.35 mg/dL 0.70-1.30 [facility] Work Phone: Comment on above: The validity of the calculated GFR & GFRAA in patients over 70 years has not been determined. Clinical correlation is essential. Serum or plasma urea nitroge n measurement (mass/volume)on 03-25-2021 Urea nitrogen [Mass/Vol] 19 mg/dL 7-18 [facility] Work Phone: Thin prep Papanicolaou smear with manual screeningon 03-25-2021 Thin prep Papanicolaou smear with manual screening 6 5-15 [facility] Work Phone: Basophil percentageon 2021 Chloride [Moles/Vol] 104 mmol/L 98-107 [facility] Work Phone: Glucose [Mass/Vol] 130 mg/dL 74-106 [facility] Work Phone: Comment on above: Fasting Glucose resu lt greater than or equal to 126 mg/dL suggests DIABETES MELLITUS per A.D.A. criteria.Please note revised GLUCOSE reference range effective 2017. Potassium [Moles/Vol] 3.2 mmol/L 3.5-5.1 [facility] Work Phone: Sodium [Moles/Vol] 139 mmol/L 136-145 [facility] Work Phone: WBC (Bld) [#/Vol] 5.2 10*3/uL 4.4-11.0 [facility] Work Phone: Blood erythrocytes count (nu mber/volume)on 02-24-2021 RBC (Bld) [#/Vol] 3.88 10*6/uL 4.6-6.2 [facility] Work Phone: Blood hemoglobin measurement (mass/volume)on 02-24-2021 Hemoglobin (Bld) [Mass/Vol] 10.8 g/dL 13.0-16.5 [facility] Work Phone: Blood platelet mean volumeon 02-24-2021 Platelet mean volume (Bld) [Entitic vol] 10.7 fL 6.2-12.0 [facility] Work Phone: Determination of erythrocyte mean corpuscular volume (MCV)on 02-24-2021 MCV (RBC) [Entitic vol] 87.4 fL 80-94 [facility] Work Phone: Hematocrit Auto (Bld) [Volum e fraction]on 02-24-2021 Hematocrit (Bld) [Volume fraction] 33.9 % 40-54 [facility] Work Phone: Laboratory - Chemistry and C hemistry - challengeon 02-24-2021 CO2 [Moles/Vol] 26.0 mmol/L 21.0-32.0 [facility] Work Phone: Urea nitrogen/Creatinine [Mass ratio] 49.8 mg/mg 10-20 [facility] Work Phone: Laboratory - Hematology and Cell countson 02-24-2021 Erythrocyte distribution width (RBC) [Entitic vol] 45.6 fL 35.1-43.9 [facility] Work Phone: Erythrocyte distribution width (RBC) [Ratio] 14.3 % 11.6-14.6 [facility] Work Phone: MCH (RBC) [Entitic mass] 27.8 pg 27.0-32.0 [facility] Work Phone: MCHC Auto (RBC) [Mass/Vol]on 02-24-2021 MCHC (RBC) [Mass/Vol] 31.9 g/dL 32-36 [facility] Work [facility]: No Panel Informationon 02-24 Estimated GFR (MDRD) Amer 463 mL/min >60 [facility] Work Phone: Comment on above: GFR Calc Estimated GFR (MDRD) Non-Af Amer 382 mL/min >60 [facility] Work Phone: Comment on above: Non- GFR Calc Platelets bldon 02-24-2021 Platelets (Bld) [#/Vol] 175 10*3/uL 150-450 [facility] Work Phone: Serum or plasma calcium jacinta urement (mass/volume)on 02-24-2021 Calcium [Mass/Vol] 8.3 mg/dL 8.5-10.1 [facility] Work Phone: Serum or plasma creatinine m easurement (mass/volume)on 02-24-2021 Creatinine [Mass/Vol] 0.28 mg/dL 0.70-1.30 [facility] Work Phone: Comment on above: The validity of the calculated GFR & GFRAA in patients over 70 years has not been determined. Clinical correlation is essential. Serum or plasma urea nitroge n measurement (mass/volume)on 02-24-2021 Urea nitrogen [Mass/Vol] 14 mg/dL 7-18 [facility] Work Phone: Thin prep Papanicolaou smear with manual screeningon 02-24-2021 Thin prep Papanicolaou smear with manual screening 9 5-15 [facility] Work Phone: Basophil percentageon 2020 Chloride [Moles/Vol] 103 mmol/L 98-107 [facility] Work Phone: Glucose [Mass/Vol] 89 mg/dL 74-106 [facility] Work Phone: Comment on above: Please note revised GLUCOSE reference range effective 2017. Potassium [Moles/Vol] 4.2 mmol/L 3.5-5.1 [facility] Work Phone: Sodium [Moles/Vol] 138 mmol/L 136-145 [facility] Work Phone: WBC (Bld) [#/Vol] 7.3 10*3/uL 4.4-11.0 [facility] Work Phone: Blood erythrocytes count (nu mber/volume)on 01-28-2021 RBC (Bld) [#/Vol] 4.27 10*6/uL 4.6-6.2 [facility] Work Phone: Blood hemoglobin measurement (mass/volume)on 01-28-2021 Hemoglobin (Bld) [Mass/Vol] 11.7 g/dL 13.0-16.5 [facility] Work Phone: Blood platelet mean volumeon 01-28-2021 Platelet mean volume (Bld) [Entitic vol] 10.6 fL 6.2-12.0 [facility] Work Phone: Determination of erythrocyte mean corpuscular volume (MCV)on 01-28-2021 MCV (RBC) [Entitic vol] 85.2 fL 80-94 [facility] Work Phone: Hematocrit Auto (Bld) [Volum e fraction]on 01-28-2021 Hematocrit (Bld) [Volume fraction] 36.4 % 40-54 [facility] Work Phone: Laboratory - Chemistry and C hemistry - challengeon 01-28-2021 CO2 [Moles/Vol] 29.0 mmol/L 21.0-32.0 [facility] Work Phone: Urea nitrogen/Creatinine [Mass ratio] 41.8 mg/mg 10-20 [facility] Work Phone: Laboratory - Hematology and Cell countson 01-28-2021 Erythrocyte distribution width (RBC) [Entitic vol] 44.3 fL 35.1-43.9 [facility] Work Phone: Erythrocyte distribution width (RBC) [Ratio] 14.3 % 11.6-14.6 [facility] Work Phone: MCH (RBC) [Entitic mass] 27.4 pg 27.0-32.0 [facility] Work Phone: MCHC Auto (RBC) [Mass/Vol]on 01-28-2021 MCHC (RBC) [Mass/Vol] 32.1 g/dL 32-36 [facility] Work Phone: No Panel Informationon 01-28 Estimated GFR (MDRD) Amer 378 mL/min >60 [facility] Work Phone: Comment on above: GFR Calc Estimated GFR (MDRD) Non-Af Amer 312 mL/min >60 [facility] Work Phone: Comment on above: Non- GFR Calc Platelets bldon 01-28-2021 Platelets (Bld) [#/Vol] 233 10*3/uL 150-450 [facility] Work Phone: Serum or plasma calcium jacinta urement (mass/volume)on 01-28-2021 Calcium [Mass/Vol] 8.8 mg/dL 8.5-10.1 [facility] Work Phone: Serum or plasma creatinine m easurement (mass/volume)on 01-28-2021 Creatinine [Mass/Vol] 0.34 mg/dL 0.70-1.30 [facility] Work Phone: Comment on above: The validity of the calculated GFR & GFRAA in patients over 70 years has not been determined. Clinical correlation is essential. Serum or plasma urea nitroge n measurement (mass/volume)on 01-28-2021 Urea nitrogen [Mass/Vol] 14 mg/dL 7-18 [facility] Work Phone: Thin prep Papanicolaou smear with manual screeningon 01-28-2021 Thin prep Papanicolaou smear with manual screening 6 5-15 [facility] Work Phone: Office Visit: Peg changeon 0 10-09-2016 Documentation of current medications (procedure) Done Invalid Interpretation Code [facility] Work Phone: Fall risk assessment No Invalid Interpretation Code [facility] Work Phone: Tobacco smoking status NHIS Never Invalid Interpretation Code [facility] Work Phone: Tobacco use [facility] Never smoker Invalid Interpretation Code [facility] Work Phone: Lab Report: BNP,B-Type NATRI URETIC PEPTIDEon 08-28-2016 BNP 9.5 pg/mL Invalid Interpretation Code 0-100 [facility] Work Phone: [phone] Lab Report: Basic Metabolic Profile (BMP)on 08-28-2016 Anion gap 4 mmol/L Low 5-15 [facility] Work Phone: [phone] BUN/Creatinine Ratio 76.9 RATIO High 10-[address] [facility] Work Phone: [phone] Calcium 8.7 mg/dL Invalid Interpretation Code 8.5-10.1 [facility] Work Phone: [phone] Chloride 106 mmol/L Invalid Interpretation Code 98-107 [facility] Work Phone: [phone] CO2 31.0 mmol/L Invalid Interpretation Code 21.0-32.0 [facility] Work Phone: [phone] Creatinine 0.32 mg/dL Low 0.70-1.30 [facility] Work Phone: [phone] eGFR (non-black) 401 mL/min/{1.73_m2} Invalid Interpretation Code >60 [facility] Work Phone: [phone] eGFR (non-black) 332 mL/min/{1.73_m2} Invalid Interpretation Code >60 [facility] Work Phone: [phone] Glucose 114 mg/dL High 70-110 [facility] Work Phone: [phone] Potassium 3.6 mmol/L Invalid Interpretation Code 3.5-5.1 [facility] Work Phone: [phone] Sodium 141 mmol/L Invalid Interpretation Code 136-145 [facility] Work Phone: [phone] Urea nitrogen 25 mg/dL High 7-18 [facility] Work Phone: [phone] Office Visiton 08-28-2016 Documentation of current medications (procedure) Done Invalid Interpretation Code [facility] Work Phone: [phone] Fall risk assessment No Invalid Interpretation Code [facility] Work Phone: [phone] Clinical Lists Update: Prelo bung dropper 08-24-2016 Erythrocytes (RBC) 3.93 10*6/uL Low [facility] Work Phone: [phone] Hematocrit (HCT) 35.4 % Low [facility] Work Phone: [phone] Hemoglobin (HGB) 11.3 g/dL Low [facility] Work Phone: [phone] MCH 28.8 pg Invalid Interpretation Code [facility] Work Phone: [phone] MCHC 31.9 g/dL Low [facility] Work Phone: [phone] MCV 90.1 fL Invalid Interpretation Code [facility] Work Phone: [phone] Platelets 89 10*3/mm3 Low [facility] Work Phone: [phone] PMV by Garrett 12.6 fL High [facility] Work Phone: [phone] RDW-CA 15.7 % High [facility] Work Phone: [phone] WBC (Leukocytes) 4.1 10*3/uL Low [facility] Work Phone: [phone] Office Visit: S/P [place] [facility] 06-15-2016 Documentation of current medications (procedure) Done Invalid Interpretation Code [facility] Work Phone: [phone] Fall risk assessment No Invalid Interpretation Code [facility] Work Phone: [phone] Tobacco smoking status NHIS Never Invalid Interpretation Code [facility] Work Phone: [phone] Tobacco use CPHS Never smoker Invalid Interpretation Code [facility] Work Phone: [phone] Lab Report: CBC-Complete Blo od Cnt No Diffon 05-28-2016 Erythrocytes (RBC) 3.67 10*6/uL Low 4.6-6.[address] [facility] Work Phone: [phone] Hematocrit (HCT) 32.9 % Low 40-54 [facility] Work Phone: [phone] Hemoglobin (HGB) 10.9 g/dL Low 13.0-16.5 [facility] Work Phone: [phone] MCH 29.7 pg Invalid Interpretation Code 27.0-32.0 [facility] Work Phone: [phone] MCHC 33.1 G/GL Invalid Interpretation Code 32-36 [facility] Work Phone: [phone] MCV 89.6 fL Invalid Interpretation Code 80-94 [facility] Work Phone: [phone] Platelets 115 10*3/mm3 Low 150-450 [facility] Work Phone: [phone] PMV by Garrett 11.5 fL Invalid Interpretation Code 6.2-12.0 [facility] Work Phone: [phone] RDW-CA 14.9 % High 11.6-14.6 [facility] Work Phone: [phone] red blood cell distribution width, size density 48.2 fL High 35.1-43.9 [facility] Work Phone: [phone] WBC (Leukocytes) 5.4 10*3/uL Invalid Interpretation Code 4.4-11.0 [facility] Work Phone: [phone] Lab Report: Partial Thrombop last Timeon 05-28-2016 aPTT 24.9 s Invalid Interpretation Code 24.1-36.2 [facility] Work Phone: [phone] Lab Report: Prothrombin Time w/INRon 05-28-2016 Coagulation tissue factor induced in platelet poor plasma 12.7 s Invalid Interpretation Code 11.7-14.9 [facility] Work Phone: [phone] INR in blood by coagulation 1.0 {INR} Invalid Interpretation Code [facility] Work Phone: [phone] Microbiology: Culture, Wound on 01-10-2016 wound culture Vancomycin $ 1 S Invalid Interpretation Code [facility] Work Phone: [phone] Lab Report: Basic Metabolic Profile (BMP)on 09-19-2015 Anion gap 10 mmol/L Invalid Interpretation Code 5-15 [facility] Work Phone: [phone] BUN/Creatinine Ratio 10.9 RATIO Invalid Interpretation Code 10-20 [facility] Work Phone: [phone] Calcium 8.2 mg/dL Low 8.5-10.1 [facility] [employer] Work Phone: [phone] Chloride 109 mmol/L High 98-107 [facility] Work Phone: [phone] CO2 23.0 mmol/L Invalid Interpretation Code 21.0-32.0 [facility] Work Phone: [phone] Creatinine 361.97 mL/min Invalid Interpretation Code [facility] Work Phone: [phone] Creatinine 0.28 mg/dL Low 0.70-1.30 [facility] Work Phone: [phone] eGFR (non-black) 403 mL/min/{1.73_m2} Invalid Interpretation Code >60 [facility] Work Phone: [phone] eGFR (non-black) 487 mL/min/{1.73_m2} Invalid Interpretation Code >60 [facility] Work Phone: [phone] Glucose 66 mg/dL Low 70-110 [facility] Work Phone: [phone] Potassium 3.1 mmol/L Low 3.5-5.1 [facility] Work Phone: [phone] Sodium 142 mmol/L Invalid Interpretation Code 136-145 [facility] Work Phone: [phone] Urea nitrogen 3 mg/dL Low 7-18 [facility] Work [facility]: [phone] Lab Report: CBC W/Diff, Auto matedon 09-19-2015 Basophils/100 leukocytes 0.2 % Invalid Interpretation Code 0-1 [facility] Work Phone: [phone] Eosinophils/100 leukocytes 1.8 % Invalid Interpretation Code 0-5 [facility] Work Phone: [phone] immature granulocytes, percentage of total cells, blood 0.200 % Invalid Interpretation Code 0.0-0.9 [facility] Work Phone: [phone] Lymphocytes 2.07 X10 3/UL Invalid Interpretation Code 0.83-4.51 [facility] Work Phone: [phone] Lymphocytes/100 leukocytes 40.9 % Invalid Interpretation Code 19-41 [facility] Work Phone: [phone] Monocytes/100 leukocytes 13.8 % High 0-10 [facility] Work Phone: [phone] neutrophil count, blood 2.2 X10 3/UL Invalid Interpretation Code 2.0-7.7 [facility] Work Phone: Neutrophils/100 leukocytes 43.1 % Low 47-70 [facility] Work Phone: Clinical Lists Update: Prelo bung dropper 07-03-2014 Smoking cessation education (procedure) yes Invalid Interpretation Code [facility] Work Phone: Bronchoalveolar lavage cultu re with Gram stain Respiratory Culture Pseudomonas aeroginosa [facility] Work Phone: Respiratory Culture Streptococcus agalactiae (B) [facility] Work Phone: Respiratory Culture Positive [facility] Work Phone: Gram stain for investigation of transfusion reaction Microscopic observation Gram stain Nom (Unsp spec) [facility] Work Phone: Laboratory - Microbiology an d Antimicrobial susceptibility Respiratory pathogens DNA and RNA 12b panel YAYO+probe (Unsp spec) [facility] Work Phone: No Panel Information Respiratory Panel (PCR) [facility] Work Phone: SARS-CoV-2 & FLU Antigen (Rapid) [facility] Work Phone: Vital Signs Date Time Vital Sign Value Performing Clinician Facility 06-15-2024 13:47-0400 Body height 152.[address] Chente Conn MD Work Phone: [facility] 06-15-2024 13:47-0400 Body mass index (BMI) [Ratio] 33.2 kg/m2 Dr. Chente Conn MD Work Phone: [facility] 06-15-2024 13:47-0400 Body weight 77.[address] Chente Conn MD Work Phone: [facility] 06-15-2024 13:47-0400 Diastolic blood pressure 59 mm[Hg] Dr. Chente Conn MD Work Phone: [facility] 06-15-2024 13:47-0400 Heart rate 58 /min Dr. Chente Conn MD Work Phone: [facility] 06-15-2024 13:47-0400 Inhaled oxygen flow rate 2 L/min Dr. Chente Conn MD Work Phone: [facility] 06-15-2024 13:47-0400 SaO2% (BldA) [Mass fraction] 95 % Dr. Chente Conn MD Work Phone: [facility] 06-15-2024 13:47-0400 Systolic blood pressure 87 mm[Hg] Dr. Chente Conn MD Work Phone: 5(919)186-071047 [address] 04-04-2024 08:14-0500 Body mass index (BMI) [Ratio] 33.2 kg/m2 Dr. Chente Conn MD Work Phone: 9(901)938-757113 [place] [address] 04-04-2024 08:14-0500 Body temperature 97.1 [degF] Dr. Chente Conn MD Work Phone: 8(737)899-147713 [place] [address] 04-04-2024 08:14-0500 Body weight 77.[address] Chente Conn MD Work Phone: 0(859)869-591847 [address] 04-04-2024 08:14-0500 Diastolic blood pressure 78 mm[Hg] Dr. Chente Conn MD Work Phone: 6(613)253-801613 [place] [address] 04-04-2024 08:14-0500 Heart rate 73 /min Dr. Chente Conn MD Work Phone: 1(574)981-667613 [place] [address] 04-04-2024 08:14-0500 Inhaled oxygen flow rate 2 L/min Dr. Chente Conn MD Work Phone: 1(237)173-377081 [place] [address] 04-04-2024 08:14-0500 Respiratory rate 20 /min Dr. Chente Conn MD Work Phone: 8(843)736-944547 [address] 04-04-2024 08:14-0500 SaO2% (BldA) [Mass fraction] 97 % Dr. Chente Conn MD Work Phone: 9(105)220-132581 [place] [address] 04-04-2024 08:14-0500 Systolic blood pressure 124 mm[Hg] Dr. Chente Conn MD Work Phone: 3(181)138-588447 [address] 2024 22:05-0500 Body temperature 97.9 [degF] Dr. Chente Conn MD Work Phone: 2(566)106-133881 [place] [address] 2024 22:05-0500 Diastolic blood pressure 106 mm[Hg] Dr. Chente Conn MD Work Phone: 2(527)365-785781 [place] [address] 2024 22:05-0500 Heart rate 72 /min Dr. Chente Conn MD Work Phone: 5(767)583-352913 [place] [address] 2024 22:05-0500 Respiratory rate 20 /min Dr. Chente Conn MD Work Phone: 5(553)510-236213 [place] [address] 2024 22:05-0500 SaO2% (BldA) [Mass fraction] 98 % Dr. Chente Conn MD Work Phone: 8(964)822-182913 [place] [address] 2024 22:05-0500 Systolic blood pressure 155 mm[Hg] Dr. Chente Cnon MD Work Phone: 9(456)472-324181 [place] [address] 2024 22:00-0500 Inhaled oxygen flow rate 4 L/min Dr. Chente Conn MD Work Phone: 5(898)307-498113 [place] [address] 2024 18:08-0500 Inhaled oxygen concentration 4 % Dr. Chente Conn MD Work Phone: 3(306)962-977413 [place] [address] 2024 16:08-0500 Body height 152.[address] Chente Conn MD Work Phone: 6(975)752-049613 [place] [address] 2024 16:08-0500 Body mass index (BMI) [Ratio] 36.2 kg/m2 Dr. Chente Conn MD Work Phone: 1(346)746-778713 [place] [address] 2024 16:08-0500 Body weight 84.[address] Chente Conn MD Work Phone: 4(179)968-665813 [place] [address] 04-13-2023 16:06-0500 Body temperature 98.6 [degF] Dr. Chente Conn Work Phone: 8(616)562-517181 [place] [address] 04-13-2023 16:06-0500 Diastolic blood pressure 78 mm[Hg] Dr. Chente Conn Work Phone: [facility] 04-13-2023 16:06-0500 Heart rate 91 /min Dr. Chente Conn Work Phone: [facility] 04-13-2023 16:06-0500 Respiratory rate 17 /min Dr. Chente Conn Work Phone: 5(415)326-966681 [place] [address] 04-13-2023 16:06-0500 SaO2% (BldA) [Mass fraction] 96 % Dr. Chente Conn Work Phone: 8(204)920-318381 [place] [address] 04-13-2023 16:06-0500 Systolic blood pressure 101 mm[Hg] Dr. Chente Conn Work Phone: 9(689)758-678581 [place] [address] 04-13-2023 12:40-0500 Inhaled oxygen flow rate 3.5 L/min Dr. Chente Conn Work Phone: 6(747)071-802181 [place] [address] 04-13-2023 12:11-0500 Body height 152.[address] Chente Conn Work Phone: 8(307)328-729781 [place] [address] 04-13-2023 12:11-0500 Body mass index (BMI) [Ratio] 34.2 kg/m2 Dr. Chente Conn Work Phone: 3(159)181-523481 [place] [address] 04-13-2023 12:11-0500 Body weight 79.[address] Chente Conn Work Phone: [facility] 03-25-2023 09:30-0500 Inhaled oxygen flow rate 5 L/min Dr. Chente Conn Work Phone: 9(125)249-883481 [place] [address] 03-25-2023 09:17-0500 Body temperature 97.3 [degF] Dr. Chente Conn Work Phone: [facility] 03-25-2023 09:17-0500 Diastolic blood pressure 78 mm[Hg] Dr. Chente Conn Work Phone: [facility] 03-25-2023 09:17-0500 Heart rate 57 /min Dr. Chente Conn Work Phone: [facility] 03-25-2023 09:17-0500 Respiratory rate 13 /min Dr. Chente Conn Work Phone: [facility] 03-25-2023 09:17-0500 SaO2% (BldA) [Mass fraction] 97 % Dr. Chente Conn Work Phone: [facility] 03-25-2023 09:17-0500 Systolic blood pressure 121 mm[Hg] Dr. Chente Conn Work Phone: [facility] 03-25-2023 03:46-0500 Body mass index (BMI) [Ratio] 34.3 kg/m2 Dr. Chente Conn Work Phone: [facility] 03-25-2023 03:46-0500 Body weight 79.[address] Chente Conn Work Phone: [facility] 03-24-2023 09:21-0500 Body height 152.[address] Chente Conn Work Phone: [facility] 03-23-2023 16:45-0500 Body temperature 97.6 [degF] Dr. Chente Conn Work Phone: [facility] 03-23-2023 16:45-0500 Diastolic blood pressure 81 mm[Hg] Dr. Chente Conn Work Phone: [facility] 03-23-2023 16:45-0500 Heart rate 112 /min Dr. Chente Conn Work Phone: [facility] 03-23-2023 16:45-0500 Respiratory rate 20 /min Dr. Chente Conn Work Phone: [facility] 03-23-2023 16:45-0500 Systolic blood pressure 124 mm[Hg] Dr. Chente Conn Work Phone: [facility] 03-23-2023 15:25-0500 SaO2% (BldA) [Mass fraction] 95 % Dr. Chente Conn Work Phone: [facility] 03-23-2023 12:12-0500 Body height 152.[address] Chente Conn Work Phone: [facility] 03-23-2023 12:12-0500 Body mass index (BMI) [Ratio] 34.8 kg/m2 Dr. Chente Conn Work Phone: [facility] 03-23-2023 12:12-0500 Body weight 80.[address] Chente Conn Work Phone: 1(340)312-216381 [place] [address] 03-02-2023 09:13-0500 Body height 152.[address] Chente Conn Work Phone: 5(184)057-135947 [address] 03-02-2023 09:13-0500 Body mass index (BMI) [Ratio] 29.2 kg/m2 Dr. Chente Conn Work Phone: 8(769)185-050581 [place] [address] 03-02-2023 09:13-0500 Body temperature 97.3 [degF] Dr. Chente Conn Work Phone: 1(828)257-472081 [place] [address] 03-02-2023 09:13-0500 Body weight 68.[address] Chente Conn Work Phone: 4(542)652-241681 [place] [address] 03-02-2023 09:13-0500 Diastolic blood pressure 74 mm[Hg] Dr. Chente Conn Work Phone: [facility] 03-02-2023 09:13-0500 Heart rate 77 /min Dr. Chente Conn Work Phone: 4(787)282-037681 [place] [address] 03-02-2023 09:13-0500 Inhaled oxygen flow rate 2 L/min Dr. Chente Conn Work Phone: [facility] 03-02-2023 09:13-0500 Respiratory rate 20 /min Dr. Chente Conn Work Phone: [facility] 03-02-2023 09:13-0500 SaO2% (BldA) [Mass fraction] 97 % Dr. Chente Conn Work Phone: [facility] 03-02-2023 09:13-0500 Systolic blood pressure 104 mm[Hg] Dr. Chente Conn Work Phone: [facility] 01-16-2023 23:36-0500 Diastolic blood pressure 78 mm[Hg] Dr. Chente Conn Work Phone: [facility] 01-16-2023 23:36-0500 Heart rate 91 /min Dr. Chente Conn Work Phone: [facility] 01-16-2023 23:36-0500 Respiratory rate 16 /min Dr. Chente Conn Work Phone: [facility] 01-16-2023 23:36-0500 SaO2% (BldA) [Mass fraction] 98 % Dr. Chente Conn Work Phone: [facility] 01-16-2023 23:36-0500 Systolic blood pressure 127 mm[Hg] Dr. Chente Conn Work Phone: [facility] 01-16-2023 21:05-0500 Inhaled oxygen flow rate 4 L/min Dr. Chente Conn Work Phone: [facility] 01-16-2023 19:17-0500 Body height 152.[address] Chente Conn Work Phone: [facility] 01-16-2023 19:17-0500 Body mass index (BMI) [Ratio] 34.4 kg/m2 Dr. Chente Conn Work Phone: [facility] 01-16-2023 19:17-0500 Body temperature 97.3 [degF] Dr. Chente Conn Work Phone: [facility] 01-16-2023 19:17-0500 Body weight [address] Chente Conn Work Phone: [facility] 12-13-2022 14:22-0400 Inhaled oxygen concentration 30 % Dr. Chente Conn Work Phone: [facility] 12-13-2022 08:25-0400 Inhaled oxygen flow rate 4.5 L/min Dr. Chente Conn Work Phone: [facility] 12-13-2022 08:25-0400 SaO2% (BldA) [Mass fraction] 97 % Dr. Chente Conn Work Phone: [facility] 12-13-2022 07:56-0400 Body temperature 98.6 [degF] Dr. Chente Conn Work Phone: [facility] 12-13-2022 07:56-0400 Diastolic blood pressure 98 mm[Hg] Dr. Chente Conn Work Phone: [facility] 12-13-2022 07:56-0400 Heart rate 89 /min Dr. Chente Conn Work Phone: [facility] 12-13-2022 07:56-0400 Respiratory rate 18 /min Dr. Chente Conn Work Phone: [facility] 12-13-2022 07:56-0400 Systolic blood pressure 150 mm[Hg] Dr. Chente Conn Work Phone: [facility] 12-11-2022 13:56-0400 Body temperature 98.2 [degF] Dr. Chente Conn Work Phone: [facility] 12-11-2022 13:56-0400 Diastolic blood pressure 40 mm[Hg] Dr. Chente Conn Work Phone: [facility] 12-11-2022 13:56-0400 Heart rate 81 /min Dr. Chente Conn Work Phone: [facility] 12-11-2022 13:56-0400 Respiratory rate 18 /min Dr. Chente Conn Work Phone: [facility] 12-11-2022 13:56-0400 SaO2% (BldA) [Mass fraction] 100 % Dr. Chente Conn Work Phone: [facility] 12-11-2022 13:56-0400 Systolic blood pressure 147 mm[Hg] Dr. Chente Conn Work Phone: [facility] 12-11-2022 13:28-0400 Inhaled oxygen concentration 30 % Dr. Chente Conn Work Phone: [facility] 12-11-2022 12:44-0400 Inhaled oxygen flow rate 8 L/min Dr. Chente Conn Work Phone: [facility] 12-10-2022 16:06-0400 Body height 152.[address] Chente Conn Work Phone: [facility] 12-10-2022 16:06-0400 Body weight 77.[address] Chente Conn Work Phone: [facility] 12-10-2022 14:53-0400 Body mass index (BMI) [Ratio] 33.3 kg/m2 Dr. Chente Conn Work Phone: [facility] 12-10-2022 14:36-0400 Heart rate 112 /min Dr. Chente Conn Work Phone: [facility] 12-10-2022 14:36-0400 Respiratory rate 26 /min Dr. Chente Conn Work Phone: [facility] 12-10-2022 14:36-0400 SaO2% (BldA) [Mass fraction] 98 % Dr. Chente Conn Work Phone: [facility] 12-10-2022 12:40-0400 Body temperature 99.3 [degF] Dr. Chente Conn Work Phone: [facility] 12-10-2022 12:40-0400 Diastolic blood pressure 86 mm[Hg] Dr. Chente Conn Work Phone: [facility] 12-10-2022 12:40-0400 Systolic blood pressure 140 mm[Hg] Dr. Chente Conn Work Phone: [facility] 12-10-2022 09:37-0400 Body height 152.[address] Chente Conn Work Phone: [facility] 12-10-2022 09:37-0400 Body mass index (BMI) [Ratio] 40 kg/m2 Dr. Chente Conn Work Phone: [facility] 12-10-2022 09:37-0400 Body weight [address] Chente Conn Work Phone: [facility] 11-05-2022 14:00-0400 Inhaled oxygen concentration 28 % Dr. Chente Conn Work Phone: 1(435)121-719647 [address] 11-05-2022 13:30-0400 Body temperature 97 [degF] Dr. Chente Conn Work Phone: 2(473)888-032147 [address] 11-05-2022 13:30-0400 Diastolic blood pressure 93 mm[Hg] Dr. Chente Conn Work Phone: [facility] 11-05-2022 13:30-0400 Heart rate 90 /min Dr. Chente Conn Work Phone: 1(495)668-044681 [place] [address] 11-05-2022 13:30-0400 Inhaled oxygen flow rate 3 L/min Dr. Chente Conn Work Phone: [facility] 11-05-2022 13:30-0400 Respiratory rate 16 /min Dr. Chente Conn Work Phone: [facility] 11-05-2022 13:30-0400 SaO2% (BldA) [Mass fraction] 93 % Dr. Chente Conn Work Phone: [facility] 11-05-2022 13:30-0400 Systolic blood pressure 138 mm[Hg] Dr. Chente Conn Work Phone: [facility] 11-02-2022 10:44-0400 Body height 152.[address] Chente Conn Work Phone: [facility] 11-02-2022 10:44-0400 Body weight [address] Chente Conn Work Phone: [facility] 10-28-2022 05:38-0400 Body mass index (BMI) [Ratio] 32.8 kg/m2 Dr. Chente Conn Work Phone: [facility] 09-17-2022 13:19-0400 Body height 150.[address] Chente Conn Work Phone: [facility] 09-17-2022 13:19-0400 Body mass index (BMI) [Ratio] 32.2 kg/m2 Dr. Chente Conn Work Phone: [facility] 09-17-2022 13:19-0400 Body temperature 96.6 [degF] Dr. Chente Conn Work Phone: [facility] 09-17-2022 13:19-0400 Body weight 72.[address] hCente Conn Work Phone: [facility] 09-17-2022 13:19-0400 Diastolic blood pressure 72 mm[Hg] Dr. Chente Conn Work Phone: [facility] 09-17-2022 13:19-0400 Heart rate 78 /min Dr. Chente Conn Work Phone: [facility] 09-17-2022 13:19-0400 Inhaled oxygen flow rate 2 L/min Dr. Chente Conn Work Phone: [facility] 09-17-2022 13:19-0400 Respiratory rate 20 /min Dr. Chente Conn Work Phone: [facility] 09-17-2022 13:19-0400 SaO2% (BldA) [Mass fraction] 96 % Dr. Chente Conn Work Phone: [facility] 09-17-2022 13:19-0400 Systolic blood pressure 110 mm[Hg] Dr. Chente Conn Work Phone: [facility] 05-01-2023 20:35-0400 Body temperature 97.6 [degF] Dr. Chente Conn Work Phone: [facility] 06-22-2022 20:35-0400 Diastolic blood pressure 74 mm[Hg] Dr. Chente Conn Work Phone: [facility] 06-22-2022 20:35-0400 Heart rate 90 /min Dr. Chente Conn Work Phone: [facility] 06-22-2022 20:35-0400 Respiratory rate 18 /min Dr. Chente Conn Work Phone: [facility] 06-22-2022 20:35-0400 SaO2% (BldA) [Mass fraction] 94 % Dr. Chente Conn Work Phone: [facility] 06-22-2022 20:35-0400 Systolic blood pressure 102 mm[Hg] Dr. Chente Conn Work Phone: [facility] 06-22-2022 18:20-0400 Body height 150.[address] Chente Conn Work Phone: [facility] 06-22-2022 18:20-0400 Body mass index (BMI) [Ratio] 38.7 kg/m2 Dr. Chente Conn Work Phone: [facility] 06-22-2022 18:20-0400 Body weight 87.[address] Chente Conn Work Phone: [facility] 06-22-2022 18:20-0400 Inhaled oxygen flow rate 4 L/min Dr. Chente Conn Work Phone: [facility] 06-12-2022 12:17-0400 Body temperature 97.5 [degF] Dr. Chente Conn Work Phone: [facility] 06-12-2022 12:17-0400 Diastolic blood pressure 73 mm[Hg] Dr. Chente Conn Work Phone: [facility] 06-12-2022 12:17-0400 Heart rate 64 /min Dr. Chente Conn Work Phone: [facility] 06-12-2022 12:17-0400 Respiratory rate 18 /min Dr. Chente Conn Work Phone: [facility] 06-12-2022 12:17-0400 SaO2% (BldA) [Mass fraction] 96 % Dr. Chente Conn Work Phone: [facility] 06-12-2022 12:17-0400 Systolic blood pressure 109 mm[Hg] Dr. Chente Conn Work Phone: [facility] 06-12-2022 10:38-0400 Body height 149.[address] Chente Conn Work Phone: 5(271)832-204081 [place] [address] 06-12-2022 10:38-0400 Body mass index (BMI) [Ratio] 34.2 kg/m2 Dr. Chente Conn Work Phone: 8(686)038-853381 [place] [address] 06-12-2022 10:38-0400 Body weight [address] Chente Conn Work Phone: [facility] 06-12-2022 10:38-0400 Inhaled oxygen flow rate 5 L/min Dr. Chente Conn Work Phone: [facility] 04-01-2022 09:00-0500 Body temperature 99.2 [degF] Dr. Chente Conn Work Phone: [facility] 04-01-2022 09:00-0500 Diastolic blood pressure 90 mm[Hg] Dr. Chente Conn Work Phone: [facility] 04-01-2022 09:00-0500 Heart rate 88 /min Dr. Chente Conn Work Phone: [facility] 04-01-2022 09:00-0500 Inhaled oxygen flow rate 4 L/min Dr. Chente Conn Work Phone: [facility] 04-01-2022 09:00-0500 Respiratory rate 20 /min Dr. Chente Conn Work Phone: [facility] 04-01-2022 09:00-0500 SaO2% (BldA) [Mass fraction] 96 % Dr. Chente Conn Work Phone: [facility] 04-01-2022 09:00-0500 Systolic blood pressure 117 mm[Hg] Dr. Chente Conn Work Phone: [facility] 04-01-2022 04:58-0500 Body weight 76.[address] Chente Conn Work Phone: [facility] 03-31-2022 09:20-0500 Body height 151.[address] Chente Conn Work Phone: [facility] 03-24-2022 21:35-0500 Body height 151.[address] Chente Conn Work Phone: [facility] 03-24-2022 21:35-0500 Body mass index (BMI) [Ratio] 33.8 kg/m2 Dr. Chente Conn Work Phone: [facility] 03-24-2022 21:35-0500 Body weight 78.[address] Chente Conn Work Phone: [facility] 03-24-2022 20:54-0500 Body temperature 104 [degF] Dr. Chente Conn Work Phone: [facility] 03-24-2022 20:54-0500 Diastolic blood pressure 123 mm[Hg] Dr. Chente Conn Work Phone: [facility] 03-24-2022 20:54-0500 Heart rate 153 /min Dr. Chente Conn Work Phone: [facility] 03-24-2022 20:54-0500 Respiratory rate 44 /min Dr. Chente Conn Work Phone: [facility] 03-24-2022 20:54-0500 SaO2% (BldA) [Mass fraction] 93 % Dr. Chente Conn Work Phone: [facility] 03-24-2022 20:54-0500 Systolic blood pressure 145 mm[Hg] Dr. Chente Conn Work Phone: [facility] 03-24-2022 17:08-0500 Body height 152.[address] Chente Conn Work Phone: [facility] 03-24-2022 17:08-0500 Body mass index (BMI) [Ratio] 31.2 kg/m2 Dr. Chente Conn Work Phone: [facility] 03-24-2022 17:08-0500 Body weight 72.[address] Chente Conn Work Phone: [facility] 02-24-2022 22:38-0500 Body temperature 98.9 [degF] Dr. Chente Conn Work Phone: [facility] 02-24-2022 22:38-0500 Diastolic blood pressure 78 mm[Hg] Dr. Chente Conn Work Phone: [facility] 02-24-2022 22:38-0500 Heart rate 78 /min Dr. Chente Conn Work Phone: [facility] 02-24-2022 22:38-0500 Respiratory rate 13 /min Dr. Chente Conn Work Phone: [facility] 02-24-2022 22:38-0500 SaO2% (BldA) [Mass fraction] 95 % Dr. Chente Conn Work Phone: [facility] 02-24-2022 22:38-0500 Systolic blood pressure 127 mm[Hg] Dr. Chente Conn Work Phone: [facility] 02-24-2022 19:50-0500 Inhaled oxygen flow rate 4 L/min Dr. Chente Conn Work Phone: [facility] 02-24-2022 16:09-0500 Body height 152.[address] Chente Conn Work Phone: [facility] Work Phone: 02-24-2022 16:09-0500 Body mass index (BMI) [Ratio] 31.6 kg/m2 Dr. Chente Conn Work Phone: [facility] 02-24-2022 16:09-0500 Body weight 73.[address] Chente Conn Work Phone: [facility] 01-06-2022 13:12-0500 Body height 152.[address] Chente Conn Work Phone: [facility] Work Phone: 01-06-2022 13:12-0500 Body mass index (BMI) [Ratio] 31.2 kg/m2 Dr. Chente Conn Work Phone: [facility] 01-06-2022 13:12-0500 Body weight 72.[address] Chente Conn Work Phone: [facility] 01-06-2022 13:12-0500 Diastolic blood pressure 109 mm[Hg] Dr. Chente Conn Work Phone: [facility] 01-06-2022 13:12-0500 Heart rate 106 /min Dr. Chente Conn Work Phone: [facility] 01-06-2022 13:12-0500 Respiratory rate 18 /min Dr. Chente Conn Work Phone: [facility] 01-06-2022 13:12-0500 SaO2% (BldA) [Mass fraction] 94 % Dr. Chente Conn Work Phone: [facility] 01-06-2022 13:12-0500 Systolic blood pressure 144 mm[Hg] Dr. Chente oCnn Work Phone: [facility] 12-19-2021 13:22-0400 Body height 152.[address] Chente Conn Work Phone: [facility] Work Phone: 12-19-2021 13:22-0400 Body mass index (BMI) [Ratio] 31.2 kg/m2 Dr. Chente Conn Work Phone: [facility] 12-19-2021 13:22-0400 Body temperature 95.7 [degF] Dr. Chente Conn Work Phone: [facility] 12-19-2021 13:22-0400 Body weight 72.[address] Chente Conn Work Phone: [facility] 12-19-2021 13:22-0400 Diastolic blood pressure 76 mm[Hg] Dr. Chente Conn Work Phone: [phone] [place] [address] 12-19-2021 13:22-0400 Heart rate 66 /min Dr. Chente Conn Work Phone: [facility] 12-19-2021 13:22-0400 Inhaled oxygen flow rate 2 L/min Dr. Chente Conn Work Phone: [facility] 12-19-2021 13:22-0400 Respiratory rate 18 /min Dr. Chente Conn Work Phone: [facility] 12-19-2021 13:22-0400 SaO2% (BldA) [Mass fraction] 94 % Dr. Chente Conn Work Phone: [facility] 12-19-2021 13:22-0400 Systolic blood pressure 110 mm[Hg] Dr. Chente Conn Work Phone: [facility] 12-05-2021 15:00-0400 Body temperature 98.2 [degF] Dr. Chente Conn Work Phone: [facility] 12-05-2021 15:00-0400 Diastolic blood pressure 95 mm[Hg] Dr. Chente Conn Work Phone: [facility] 12-05-2021 15:00-0400 Heart rate 86 /min Dr. Chente Conn Work Phone: [facility] 12-05-2021 15:00-0400 Inhaled oxygen flow rate 4 L/min Dr. Chente Conn Work Phone: [facility] 12-05-2021 15:00-0400 Respiratory rate 17 /min Dr. Chente Conn Work Phone: [facility] 12-05-2021 15:00-0400 SaO2% (BldA) [Mass fraction] 95 % Dr. Chente Conn Work Phone: [facility] 12-05-2021 15:00-0400 Systolic blood pressure 118 mm[Hg] Dr. Chente Conn Work Phone: [facility] 12-04-2021 11:44-0400 Body height 152.[address] Chente Conn Work Phone: [facility] Work Phone: 12-04-2021 11:44-0400 Body weight 74.[address] Chente Conn Work Phone: [facility] 11-30-2021 15:07-0400 Body mass index (BMI) [Ratio] 32.2 kg/m2 Dr. Chente Conn Work Phone: [facility] 11-30-2021 14:32-0400 Body temperature 97.8 [degF] Dr. Chente Conn Work Phone: [facility] Work Phone: 11-30-2021 14:32-0400 Diastolic blood pressure 69 mm[Hg] Dr. Chente Conn Work Phone: [facility] Work Phone: 11-30-2021 14:32-0400 Heart rate 76 /min Dr. Chente Conn Work Phone: [facility] Work Phone: 11-30-2021 14:32-0400 Respiratory rate 15 /min Dr. Chente Conn Work Phone: [facility] Work Phone: 11-30-2021 14:32-0400 SaO2% (BldA) [Mass fraction] 96 % Dr. Chente Conn Work Phone: [facility] Work Phone: 11-30-2021 14:32-0400 Systolic blood pressure 112 mm[Hg] Dr. Chente Conn Work Phone: [facility] Work Phone: 11-30-2021 12:19-0400 Inhaled oxygen flow rate 4 L/min Dr. Chente Conn Work Phone: [facility] Work Phone: 11-30-2021 11:05-0400 Body height 121.[address] Chente Conn Work Phone: [facility] Work Phone: 11-30-2021 11:05-0400 Body mass index (BMI) [Ratio] 53.1 kg/m2 Dr. Chente Conn Work Phone: [facility] Work Phone: 11-30-2021 11:05-0400 Body weight [address] Chente Conn Work Phone: [facility] Work Phone: 08-19-2021 14:26-0400 Body height 152.[address] Chente Conn Work Phone: [facility] Work Phone: 08-19-2021 14:17-0400 Body mass index (BMI) [Ratio] 30.8 kg/m2 Dr. Chente Conn Work Phone: [facility] Work Phone: 08-19-2021 14:17-0400 Body temperature 97 [degF] Dr. Chente Conn Work Phone: [facility] Work Phone: 08-19-2021 14:17-0400 Body weight 71.[address] Chente Conn Work Phone: [facility] Work Phone: 08-19-2021 14:17-0400 Diastolic blood pressure 68 mm[Hg] Dr. Chente Conn Work Phone: [facility] Work Phone: 08-19-2021 14:17-0400 Heart rate 57 /min Dr. Chente Conn Work Phone: [facility] Work Phone: 08-19-2021 14:17-0400 Respiratory rate 17 /min Dr. Chente Conn Work Phone: [facility] Work Phone: 08-19-2021 14:17-0400 SaO2% (BldA) [Mass fraction] 97 % Dr. Chente Conn Work Phone: [facility] Work Phone: 08-19-2021 14:17-0400 Systolic blood pressure 110 mm[Hg] Dr. Chente Conn Work Phone: [facility] Work Phone: 07-16-2021 09:03-0400 Body height 152.[address] Chente Conn Work Phone: [facility] Work Phone: 07-16-2021 09:03-0400 Body mass index (BMI) [Ratio] 30.7 kg/m2 Dr. Chente Conn Work Phone: [facility] Work Phone: 07-16-2021 09:03-0400 Body weight 71.[address] Chente Conn Work Phone: [facility] Work Phone: 07-16-2021 09:03-0400 Diastolic blood pressure 71 mm[Hg] Dr. Chente Conn Work Phone: [facility] Work Phone: 07-16-2021 09:03-0400 Heart rate 68 /min Dr. Chente Conn Work Phone: [facility] Work Phone: 07-16-2021 09:03-0400 Respiratory rate 18 /min Dr. Chente Conn Work Phone: [facility] Work Phone: 07-16-2021 09:03-0400 SaO2% (BldA) [Mass fraction] 99 % Dr. Chente Conn Work Phone: [facility] Work Phone: 07-16-2021 09:03-0400 Systolic blood pressure 102 mm[Hg] Dr. Chente Conn Work Phone: [facility] Work Phone: 05-19-2021 21:15-0400 Diastolic blood pressure 72 mm[Hg] Dr. Chente Conn Work Phone: [facility] Work Phone: 05-19-2021 21:15-0400 Heart rate 79 /min Dr. Chente Conn Work Phone: [facility] Work Phone: 05-19-2021 21:15-0400 Respiratory rate 15 /min Dr. Chente Conn Work Phone: [facility] Work Phone: 05-19-2021 21:15-0400 SaO2% (BldA) [Mass fraction] 98 % Dr. Chente Conn Work Phone: [facility] Work Phone: 05-19-2021 21:15-0400 Systolic blood pressure 140 mm[Hg] Dr. Chente Conn Work Phone: [facility] Work Phone: 05-19-2021 18:07-0400 Body height 152.[address] Chente Conn Work Phone: [facility] Work Phone: 05-19-2021 18:07-0400 Body mass index (BMI) [Ratio] 31.8 kg/m2 Dr. Chente Conn Work Phone: [facility] Work Phone: 05-19-2021 18:07-0400 Body temperature 97.6 [degF] Dr. Chente Conn Work Phone: [facility] Work Phone: 05-19-2021 18:07-0400 Body weight [address] Chente Conn Work Phone: [facility] Work Phone: 04-15-2021 13:10-0500 Body temperature 97.2 [degF] Dr. Chente Conn Work Phone: [facility] Work Phone: 04-15-2021 13:10-0500 Body weight 72.[address] Chente Conn Work Phone: [facility] Work Phone: 04-15-2021 13:10-0500 Heart rate 85 /min Dr. Chente Conn Work Phone: [facility] Work Phone: 04-15-2021 13:10-0500 Respiratory rate 16 /min Dr. Chente Conn Work Phone: [facility] Work Phone: 04-15-2021 13:10-0500 SaO2% (BldA) [Mass fraction] 95 % Dr. Chente Conn Work Phone: [facility] Work Phone: 04-15-2021 12:10-0500 Body temperature 97.2 [degF] Dr. Chente Conn Work Phone: [facility] Work Phone: 04-15-2021 12:10-0500 Body weight 72.[address] Chente Conn Work Phone: [facility] Work Phone: 04-15-2021 12:10-0500 Heart rate 85 /min Dr. Chente Conn Work Phone: [facility] Work Phone: 04-15-2021 12:10-0500 Respiratory rate 16 /min Dr. Chente Conn Work Phone: [facility] Work Phone: 04-15-2021 12:10-0500 SaO2% (BldA) [Mass fraction] 95 % Dr. Chente Conn Work Phone: [facility] Work Phone: 03-24-2021 23:17-0500 Body mass index (BMI) [Ratio] 0 kg/m2 Dr. Chente Conn Work Phone: [facility] Work Phone: 02-21-2021 23:10-0500 Body mass index (BMI) [Ratio] 0 kg/m2 Dr. Chente Conn Work Phone: [facility] Work Phone: 01-21-2021 23:06-0500 Body mass index (BMI) [Ratio] 0 kg/m2 Dr. Chente Conn Work Phone: [facility] Work Phone: 08-28-2016 09:39-0400 BMI (Body Mass Index) 30.27 kg/m2 [facility] Work Phone: 08-28-2016 09:39-0400 BP Diastolic 62 mm[Hg[facility] Work Phone: 08-28-2016 09:39-0400 BP Systolic 106 mm[Hg] [facility] Work Phone: 08-28-2016 09:39-0400 Height 152.4 cm [facility] Work Phone: 08-28-2016 09:39-0400 Pulse (Heart Rate) 78 /min [facility] Work Phone: 08-28-2016 09:39-0400 Respiratory Rate 12 /min Harumi De[facility]is [facility] Work Phone: 08-28-2016 09:39-0400 Weight 70.31 kg [facility]ennett De[facility] Work Phone: 06-15-2016 11:14-0400 BP Diastolic 87 mm[Hg] Chente Lara PSYCHIATRIC CLINICIAN [facility] Work Phone: 06-15-2016 11:14-0400 BP Systolic 111 mm[Hg] Chente Lara PSYCHIATRIC CLINICIAN [facility] Work Phone: 06-15-2016 11:14-0400 Pulse (Heart Rate) 60 /min Chente Lara PSYCHIATRIC CLINICIAN [facility] Work Phone: 06-15-2016 11:14-0400 Respiratory Rate 16 /min Chente Lara PSYCHIATRIC CLINICIAN [facility] Work Phone: 01-08-2016 09:55-0500 Body Temperature 97.2 [degF] Chente Marco PSYCHIATRIC CLINICIAN [facility] Work Phone: Encounters Encounter Date Encounter Type Care Provider Facility Start: 09-03-2024 ambulatory Chente Conn Facilit y:[facility] Start: 09-01-2024 ambulatory Chente Conn Facilit y:[facility] Start: 08-22-2024 End: 08-22-[address] Chente Conn MD Work Phone: -Laboratory Specimen Start: 08-22-2024 End: 08-22-[address] Chente Conn MD -Laboratory Specimen Work Phone: Start: 08-22-2024 End: 08-22-2024 ambulatory Chente Conn Facility:[facility] Start: 07-26-2024 End: 07-26-2024 ambulatory Chente Conn MD [facility] Work Phone: Start: 07-26-2024 End: 07-26-[address] Roddy Quinones MD -Radiology [place] Work Phone: Start: 07-25-2024 End: 08-21-[address] Chente Conn MD -Laboratory Specimen Work Phone: Start: 07-25-[address] Chente Conn MD -Laboratory Specimen Work Phone: Start: 07-25-2024 End: 08-21-[address] Chente Conn MD Work Phone: -Laboratory Specimen Start: 07-18-2024 End: 07-18-[address] Chente Conn MD Work Phone: [facility] Work Phone: Start: 07-18-2024 End: 07-18-[address] Matteo Posadas MD -Laboratory Specimen Work Phone: Start: 07-18-2024 End: 07-18-2024 ambulatory Chente Conn Facility:[facility] Start: 06-26-2024 End: 06-26-[address] Chente Conn MD Work Phone: [facility] Work Phone: Start: 06-26-2024 End: 06-26-[address] Chente Conn MD -Laboratory, Specimen Work Phone: Start: 06-26-2024 End: 06-26-2024 ambulatory Chente Conn Facility:[facility] Start: 06-15-2024 End: 06-15-[address] Matteo Posadas MD -[facility] Work Phone: Start: 06-15-2024 End: 06-15-2024 ambulatory Chente Conn Facility:[facility] Start: 05-29-2024 End: 06-21-[address] Chente Conn MD -Laboratory, Specimen Work Phone: Start: 05-29-2024 End: 06-21-2024 ambulatory Chente Conn Facility:[facility] Start: 05-09-2024 End: 05-09-[address] Chente Conn MD Work Phone: [facility] Work Phone: Start: 05-09-2024 End: 05-09-2024 Patient encounter procedure Valarie Kee NP-C -Laboratory, Specimen Work Phone: Start: 05-09-2024 End: 05-09-2024 ambulatory Chente Conn Facility:[facility] Start: 05-01-2024 End: 05-22-[address] Chente Conn MD -Laboratory, Specimen Work Phone: Start: 05-01-[address] Chente Conn MD -Laboratory, Specimen Work Phone: Start: 05-01-2024 End: 05-22-[address] Chente Conn MD Work Phone: [facility] Work Phone: Start: 04-27-2024 ambulatory Chente [facility] y:[facility] Start: 04-25-2024 End: 04-25-[address] Chente Conn MD -Outpatient Bone Densitometry Work Phone: Start: 04-25-2024 End: 04-25-2024 ambulatory Chente Conn Facility:[facility] Start: 04-04-2024 End: 04-04-2024 Patient encounter procedure SRINIVAS [facility] Work Phone: Start: 04-04-2024 End: 04-04-2024 ambulatory Chente Conn Facility:[facility] Start: 04-03-2024 End: 04-21-[address] Chente Conn MD -Laboratory, Specimen Work Phone: Start: 04-03-2024 End: 04-21-2024 ambulatory Chente Conn Facility:[facility] Start: 03-16-2024 End: 03-16-[address] Roddy Quinones MD -Radiology, [facility] Work Phone: Start: 03-16-2024 End: 03-16-2024 ambulatory Chente Conn Facility:[facility] Start: 03-08-2024 End: 03-08-[address] Chente Conn MD -Laboratory, Specimen Work Phone: Start: 03-08-2024 End: 03-08-2024 ambulatory Chente Conn Facility:[facility] Start: 02-24-2024 End: 03-24-2024 ambulatory Chente Conn Facility:[facility] Start: 02-24-2024 End: 03-24-[address] Chente Conn MD -Laboratory, Specimen Work Phone: Start: 2024 ambulatory Chente Conn Facilit y:[facility] Start: 2024 Non-patient / Non-visit Dr. Torey Weber MD -[facility] Start: 2024 End: 2024 Emergency department patient visit Dr. Racquel Moss DO -Emergency Department Work Phone: Start: 01-27-2024 End: 02-22-[address] Chente Conn MD -Laboratory, Specimen Work Phone: Start: 01-27-2024 End: 02-22-2024 ambulatory Chente Conn Facility:[facility] Start: 01-14-2024 End: 01-14-2024 ambulatory Chente Conn Facility:[facility] Start: 01-04-2024 ambulatory Michael Posadas Facility:[facility] Start: 01-04-2024 End: 01-10-2024 Evaluation and management of inpatient Michael Posadas Facility:[facility] Start: 12-28-2023 End: 12-28-2023 ambulatory Chente Conn Facility:[facility] Start: 11-29-2023 End: 11-29-2023 ambulatory Chente Conn Facility:[facility] Start: 10-29-2023 End: 10-29-2023 ambulatory Chente Conn Facility:[facility] Start: 09-30-2023 End: 10-01-2023 ambulatory Chente Conn Facility:[facility] Start: 09-15-2023 End: 09-15-2023 ambulatory Stefan Bri Facility:[facility] Start: 09-10-2023 End: 09-10-2023 ambulatory Chente Conn Facility:[facility] Start: 09-06-2023 End: 09-06-2023 ambulatory Torey Huffman Facility:[facility] Start: 06-14-2023 End: 06-14-[address] Chente Conn Work Phone: [facility] Work Phone: Start: 06-14-2023 End: 06-14-[address] Chente Conn Work Phone: [facility]-Laboratory, Specimen Work Phone: Start: 05-17-2023 End: 05-17-[address] Chente Conn Work Phone: [facility] Work Phone: Start: 05-17-2023 End: 05-17-[address] [facility] Work [facility] Start: 04-19-2023 End: 04-19-[address] Chente Conn Work Phone: [facility] Work Phone: Start: 04-19-2023 End: 04-19-[address] Chen[facility] Work [facility] Start: 04-13-2023 End: 04-13-2023 Emergency department patient visit Dr. Chente Conn Work Phone: [facility]-Emergency Department Work Phone: Start: 03-25-2023 Non-patient / Non-visit Dr. Chente Conn Work Phone: [facility] Work Phone: Start: 03-25-2023 Non-patient / Non-visit Dr. Chente Conn Work Phone: [facility] Start: 03-25-2023 Dr. Chente canales Work Phone: [facility] Start: 03-24-2023 Non-patient / Non-visit Dr. Chente Conn Work Phone: [facility] Work Phone: Start: 03-24-2023 Dr. Chente canales Work Phone: [facility] Work Phone: Start: 03-24-2023 Non-patient / Non-visit Dr. Chente Conn Work Phone: [facility] Start: 03-24-2023 Dr. Chente canales Work Phone: [facility] Start: 03-23-2023 Non-patient / Non-visit Dr. Chente Conn Work Phone: [facility] Work Phone: Start: 03-23-2023 End: 03-25-2023 Evaluation and management of inpatient Dr. Chente Conn Work Phone: [facility]-Intensive Care Unit Work Phone: Start: 03-23-2023 End: 03-25-2023 Dr. Chen[facility] Conn [facility] Work [facility] Start: 03-02-2023 End: 03-02-[address] Chente Conn Work Phone: [facility] Work Phone: Start: 03-02-2023 End: 03-02-2023 Dr. Chente Conn Work Phone: [facility] Work Phone: Start: 03-01-2023 End: 03-01-[address] Chente Conn Work Phone: [facility] Work Phone: Start: 03-01-2023 End: 03-01-[address] Chente Cnon [facility] Work Phone: Start: 03-01-2023 End: 03-01-2023 Dr. Chente Conn [facility] Work [facility]: Start: 02-03-2023 End: 02-03-[address] Chente Conn Work Phone: [facility] Work Phone: Start: 02-03-2023 End: 02-03-[address] Chente Conn [facility] Work [facility]: Start: 02-03-2023 End: 02-03-2023 Dr. Chente Conn [facility] Work [facility]: Start: 01-16-2023 End: 01-16-2023 Emergency department patient visit Dr. Chente Conn Work Phone: [facility]-Emergency Department Work Phone: Start: 01-16-2023 End: 01-16-2023 Dr. Chente Conn Work Phone: [facility]-Emergency Department Work Phone: Start: 01-04-2023 End: 01-04-[address] Chente Conn Work Phone: [facility]-Laboratory, Specimen Work Phone: Start: 01-04-2023 End: 01-04-2023 Dr. Chente Conn Work Phone: [facility]-Laboratory, Specimen Work Phone: Start: 12-13-2022 Non-patient / Non-visit Dr. Chente Conn Work Phone: [facility] Work Phone: Start: 12-13-2022 Dr. Chente canales Work Phone: [facility] Work Phone: Start: 12-12-2022 Non-patient / Non-visit Dr. Chente Conn Work Phone: [facility] Start: 12-12-2022 Dr. Chente canales Work Phone: [facility] [facility] Start: 12-12-2022 Non-patient / Non-visit Dr. Chente Conn Work Phone: [facility] Work Phone: Start: 12-12-2022 Dr. Chente canales Work Phone: [facility] Work Phone: Start: 12-11-2022 Non-patient / Non-visit Dr. Chente Conn Work Phone: [facility] Work Phone: Start: 12-11-2022 Dr. Chente canales Work Phone: [facility] Work Phone: Start: 12-11-2022 Non-patient / Non-visit Dr. Chente Conn Work Phone: [facility] Start: 12-11-2022 Dr. Chente canales Work Phone: [facility] Start: 12-10-2022 End: 12-13-2022 Evaluation and management of inpatient Dr. Chente Conn [facility] Work Phone: Start: 12-10-2022 End: 12-13-2022 Dr. Chente Conn [facility] Work Phone: Start: 12-07-2022 End: 12-07-[address] Chente Conn Work Phone: [facility] Work Phone: Start: 12-07-2022 End: 12-07-[address] Chen[facility] Conn [facility] Work Phone: Start: 12-07-2022 End: 12-07-2022 Dr. Chente Conn [facility] Phone[facility] Work Phone: Start: 11-12-2022 End: 11-12-[address] Chente Conn [facility] Work Phone: Start: 11-05-2022 Non-patient / Non-visit Dr. Chente Conn Work Phone: [facility] Work Phone: Start: 11-04-2022 Non-patient / Non-visit Dr. Chente Conn Work Phone: [facility] Work Phone: Start: 11-03-2022 Non-patient / Non-visit Dr. Chente Conn Work Phone: [facility] Work Phone: Start: 11-02-2022 Non-patient / Non-visit Dr. Chente Conn Work Phone: [facility] Work Phone: Start: 11-01-2022 Non-patient / Non-visit Dr. Chente Conn Work Phone: [facility] Work Phone: Start: 10-31-2022 Non-patient / Non-visit Dr. Chente Conn Work Phone: [facility] Work Phone: Start: 10-30-2022 Non-patient / Non-visit Dr. Chente Conn Work Phone: [facility] Work Phone: Start: 10-29-2022 Non-patient / Non-visit Dr. Chente Conn Work Phone: [facility] Work Phone: Start: 10-28-2022 Non-patient / Non-visit Dr. Chente Conn Work Phone: [facility] Work Phone: Start: 10-27-2022 Non-patient / Non-visit Dr. Chente Conn Work Phone: [facility] Work Phone: Start: 10-27-2022 End: 11-05-2022 Evaluation and management of inpatient Dr. Chente Conn Work Phone: [facility]Int[facility] Work Phone: Start: 10-14-2022 End: 10-14-[address] Chente Conn Work Phone: [facility] Work Phone: Start: 10-14-2022 End: 10-14-[address] Chente Conn [facility] Work Phone: Start: 09-17-2022 End: 09-17-[address] Chente Conn Work Phone: [facility] Work Phone: Start: 09-14-2022 End: 09-14-[address] Chente Conn Work Phone: [facility] Work Phone: Start: 09-14-2022 End: 09-14-[address] Chente Conn [facility] Work Phone: Start: 08-17-2022 End: 08-17-2022 ambulatory [facility] Work Phone: Start: 08-17-2022 End: 08-17-2022 [facility] Work [facility]: Start: 07-22-2022 End: 07-22-2022 [facility] Work [facility]: Start: 06-30-2022 Telephone encounter [facility] Work Phone: Colorectal Surgery Comment on above: Stoma Consult Start: 06-22-2022 End: 06-23-2022 Emergency department patient visit Dr. Chente Conn Work Phone: [facility] Work Phone: Start: 06-22-2022 End: 06-23-2022 Dr. Chente Conn Work Phone: [facility]-Emergency Department Start: 06-15-2022 End: 06-16-2022 ambulatory CHENTE Emil GOSHEN Facility:[facility] Start: 06-15-2022 End: 06-15-2022 Nursing evaluation of patient and report [facility] Work Phone: Colorectal Surgery Comment on above: Attention to colosto my (HCC) (Primary Dx) Start: 06-12-2022 End: 06-12-2022 Emergency department patient visit Dr. Chente Conn Work Phone: [facility]Emergency Department Start: 06-12-2022 End: 06-12-2022 Dr. Chente Conn Work Phone: [facility] Start: 06-01-2022 End: 06-21-2022 Discharged Recurring [facility] Work [facility]: Start: 06-01-[address] Chente Conn Work Phone[facility] Start: 06-01-2022 End: 06-21-2022 Dr. Chente Conn Work Phone[facility] Start: 05-06-2022 End: 05-06-2022 ambulatory I MAURICIO LEAVITT Facility:[facility] Start: 05-06-2022 End: 05-06-2022 [facility] Health I Mauricio Leavitt MD Work Phone: Colorectal Surgery Comment on above: Functional disorder of stomach (Primary Dx) Start: 05-04-2022 End: 05-22-[address] Chente Conn Work Phone: [facility] Work Phone: Start: 05-04-2022 End: 05-22-[address] Chente Conn [facility] Start: 05-04-2022 End: 05-22-2022 Dr. Chente Conn [facility] Phone[facility] Start: 04-14-2022 Telephone encounter I Mauricio rothman MD Work Phone: Colorectal Surgery Comment on above: Patient Update; Radha ent Question Patient Update Start: 04-01-2022 Non-patient / Non-visit Dr. Chente Conn Work Phone: [facility] Start: 04-01-2022 Dr. Chente canales Work Phone: [facility] Start: 03-31-2022 Non-patient / Non-visit Dr. Chente Conn Work Phone: [facility] Start: 03-31-2022 Dr. Chente canales Work Phone: [facility] Start: 03-31-2022 Non-patient / Non-visit Dr. Chente Conn Work Phone: [facility] Start: 03-31-2022 Dr. Chente canales Work Phone: [facility] Start: 03-30-2022 Non-patient / Non-visit Dr. Chente Conn Work Phone: [facility] Start: 03-30-2022 Dr. Chente canales Work Phone: [facility] Start: 03-30-2022 Non-patient / Non-visit Dr. Chente Conn Work Phone: [facility] Start: 03-30-2022 Dr. Chente canales Work Phone: [facility] Start: 03-29-2022 Non-patient / Non-visit Dr. Chente Conn Work Phone: [facility] Start: 03-29-2022 Dr. Chente canales Work Phone: [facility] Start: 03-29-2022 Non-patient / Non-visit Dr. Chente Conn Work Phone: [facility] Start: 03-29-2022 Dr. Chente canales Work Phone: [facility] Start: 03-29-2022 Non-patient / Non-visit Dr. Chente Conn Work Phone: [facility] Start: 03-29-2022 Dr. Chente canales Work Phone: [facility] Start: 03-28-2022 Non-patient / Non-visit Dr. Chente Conn Work Phone: [facility] Start: 03-28-2022 Dr. Chente canales Work Phone: [facility] Start: 03-27-2022 Non-patient / Non-visit Dr. Chente Conn Work Phone: [facility] Start: 03-27-2022 Dr. hCente canales Work Phone: [facility] Start: 03-26-2022 Non-patient / Non-visit Dr. Chente Conn Work Phone: [facility] Start: 03-26-2022 Dr. Chente canales Work Phone: [facility] Start: 03-25-2022 Non-patient / Non-visit Dr. Chente Conn Work Phone: [facility] Start: 03-25-2022 Dr. Chente canales Work Phone: [facility] Start: 03-25-2022 Non-patient / Non-visit Dr. Chente Conn Work Phone: [facility] Start: 03-25-2022 Dr. Chente canales Work Phone: [facility] Start: 03-24-2022 Non-patient / Non-visit Dr. Chente Conn Work Phone: [facility] Start: 03-24-2022 End: 04-01-2022 Evaluation and management of inpatient Dr. Chente Conn [facility] Phone[facility] Start: 03-24-2022 End: 04-01-2022 Dr. Chente Conn Work Phone: [facility] Start: 03-23-2022 End: 03-24-[address] Chente Conn Work Phone: [facility] Work Phone: Start: 03-23-2022 End: 03-24-[address] Chente Conn [facility] Start: 03-23-[address] Chente Conn Work Phone: [facility] Start: 03-23-2022 End: 03-24-2022 Dr. Chente Conn Work Phone: [facility] Start: 02-24-2022 End: 02-24-2022 Emergency department patient visit Dr. Chente Conn Work Phone: [facility] Start: 02-24-2022 End: 02-24-2022 Dr. Chente Conn Work Phone: [facility] Start: 02-06-2022 End: 02-21-[address] Chente Conn Work Phone: [facility] Work Phone: Start: 02-06-2022 End: 02-21-[address] Chente Conn [facility] Start: 02-06-2022 End: 02-21-2022 Dr. Chente Conn [facility] Phone: [facility] Start: 01-06-2022 End: 01-06-[address] Chente Conn Work Phone: [facility] Start: 01-06-2022 End: 01-06-2022 Dr. Chente Conn Work Phone: [facility] Start: 01-05-2022 End: 01-21-[address] Chente Conn Work Phone: [facility] Work Phone: Start: 01-05-2022 End: 01-21-[address] Chente Conn Work Phone: [facility]-Laboratory, Specimen Start: 01-05-2022 End: 01-21-2022 Dr. Chente Conn [facility] Phone: [facility] Start: 12-19-2021 End: 12-19-[address] Chente Conn [facility] Phone: [facility] Start: 12-19-2021 End: 12-19-2021 Dr. Chente Conn Work Phone: [facility] Start: 12-08-2021 End: 12-22-[address] Chente Conn Work Phone: [facility] Work Phone: Start: 12-08-2021 End: 12-22-[address] Chente Conn Work Phone: [facility]-Laboratory, Specimen Start: 12-08-2021 End: 12-22-2021 Dr. Chente Conn Work Phone: [facility]-Labor[facility], Specimen Start: 12-05-2021 Non-patient / Non-visit Dr. Chente Conn Work Phone: [facility] Start: 12-05-2021 Dr. Chente canales Work Phone: [facility] Start: 12-04-2021 Non-patient / Non-visit Dr. Chente Conn Work Phone: [facility] Start: 12-04-2021 Dr. Chente canales Work Phone: [facility] Start: 12-03-2021 Non-patient / Non-visit Dr. Chente Conn Work Phone: [facility] Start: 12-03-2021 [facility] Start: 12-03-2021 Non-patient / Non-visit Dr. Chente Conn Work Phone: [facility] Start: 12-03-2021 Dr. Chente canales Work Phone: [facility] Start: 12-02-2021 Non-patient / Non-visit Dr. Chente Conn Work Phone: [facility] Start: 12-02-2021 Dr. Chente canales Work Phone: [facility] Start: 12-01-2021 Non-patient / Non-visit Dr. Chente Conn Work Phone: [facility] Start: 12-01-2021 Dr. Chente canales Work Phone: [facility] Start: 12-01-2021 Non-patient / Non-visit Dr. Chente Conn Work Phone: [facility] Start: 12-01-2021 Dr. Chente canales Work Phone: [facility] Start: 12-01-2021 End: 12-05-2021 Non-patient / Non-visit Dr. Chente Conn Work Phone: [facility] Start: 11-30-2021 End: 12-05-2021 Evaluation and management of inpatient Dr. Chente Conn [facility] Phone[facility] Start: 11-30-2021 End: 12-05-2021 Dr. Chente Conn Work Phone: [facility] Start: 11-03-2021 End: 11-21-[address] Chente Conn Work Phone: [facility] Start: 09-11-2021 Non-patient / Non-visit Dr. Chente Conn Work Phone: [facility] Start: 09-11-2021 End: 09-11-[address] Chente Conn Work Phone[facility] Start: 09-10-2021 End: 09-21-[address] Chente Conn Work Phone: [facility] Start: 09-10-[address] Chente Conn Work Phone: [facility] Start: 08-19-2021 End: 08-19-[address] Chente Conn Work Phone: [facility] Start: 08-12-2021 End: 08-12-[address] Chente Conn Work Phone: [facility] Start: 08-08-2021 End: 08-08-[address] Chente Conn Work Phone: [facility] Start: 07-16-2021 End: 07-16-[address] Chente Conn Work Phone: [facility] Start: 07-11-2021 End: 07-22-[address] Chente Conn Work Phone: [facility] Start: 06-11-2021 End: 06-21-[address] Chente Conn Work Phone: [facility] Start: 05-30-2021 End: 05-30-[address] Chente Conn Work Phone: [facility]-Cat Scan, [facility] Start: 05-20-2021 End: 05-20-[address] Chente Conn Work Phone[facility] Start: 05-19-2021 End: 05-19-2021 Emergency department patient visit Dr. Chente Conn Work Phone: [facility]Emergency [facility] Start: 05-13-2021 End: 05-22-[address] Chente Conn Work Phone: [facility] Start: 04-28-2021 End: 04-28-[address] Chente Conn Work Phone: [facility] Start: 04-21-2021 End: 04-21-[address] Chente Conn Work Phone: [facility] Start: 04-15-2021 End: 04-15-[address] Chente Conn Work Phone: [facility] Start: 03-25-2021 End: 04-21-[address] Chente Conn Work Phone: [facility] Start: 02-24-2021 End: 03-24-[address] Chente Conn Work Phone: [facility] Start: 01-28-2021 End: 02-21-2021 [...] on above: Detection Limit = 3Performed at: [address] [id number] Director: Berry Gonzalez PhD, Phone: [phone] Start: 06-26-2024 Total iron binding capacity measurement [...] Bacteria identified in Blood by Culture Dr. Chetne Conn Work Phone: Investigation of tra nsfusion [...] growth factor [Moles/volume] in Serum or Plasma [facility] Start: 06-26-2024 Prolactin measurement [facility] Start: 06-26-2024 Testosterone measurement [facility] Start: 04-13-2023 Venous catheter care management [facility] Start: 04-13-2023 End: 04-13-2023 [facility] Start: 04-13-2023 [facility] Start: 03-25-2023 Patient discharge [facility] Start: 03-24-2023 Referral to service [facility] Start: 03-24-2023 CBC W Auto Differential panel - Blood [facility] Start: 03-24-2023 [facility] Start: 03-23-2023 Following clinical pathway protocol [facility] Start: 03-23-2023 Assessment of risk of venous thromboembolism [facility] Start: 03-23-2023 Consultation [facility] Start: 03-23-2023 Consultation for treatment [facility] Start: 03-23-2023 Inhalation therapy procedure [facility] Start: 03-23-2023 Insertion of catheter into peripheral vein [facility] Start: 03-23-2023 Measuring intake and output [facility] Start: 03-23-2023 Oxygen therapy [facility] Start: 03-23-2023 Patient referral to dietitian [facility] Start: 03-23-2023 Providing care according to standard [facility] Start: 03-23-2023 Provision of activity privileges [facility] Start: 03-23-2023 Referral to service [facility] Start: 03-23-2023 Respiratory therapy [facility] Start: 03-23-2023 [facility] Start: 03-23-2023 Verification routine [facility] Start: 03-23-2023 Admission procedure [facility] Start: 03-23-2023 Bacteria identified in Blood by Culture Blood Culture [facility] Start: 03-23-2023 Bacteria identified in Urine by Culture [facility] Start: 03-23-2023 [facility] Start: 03-23-2023 End: 03-23-2023 Blood culture [facility] Start: 03-23-2023 End: 03-23-2023 [facility] Start: 01-16-2023 End: 01-16-2023 Blood culture [facility] Start: 01-16-2023 End: 01-16-2023 [facility] Start: 01-16-2023 Bacteria identified in Blood by Culture Blood Culture [facility] Start: 01-16-2023 Bacteria identified in Urine by Culture Urine Culture [facility] Start: 12-16-2022 Blood chemistry [facility] Start: 12-16-2022 Complete blood count [facility] Start: 12-15-2022 Blood chemistry [facility] Start: 12-15-2022 Complete blood count [facility] Start: 12-14-2022 Blood chemistry [facility] Start: 12-14-2022 Complete blood count [facility] Start: 12-13-2022 Patient discharge [facility] Start: 12-13-2022 Blood chemistry [facility] Start: 12-13-2022 Complete blood count [facility] Start: 12-12-2022 Blood chemistry [facility] Start: 12-12-2022 Complete blood count [facility] Start: 12-12-2022 [facility] Start: 12-11-2022 Referral to service [facility] Start: 12-10-2022 Ambulation without limitation [facility] Start: 12-10-2022 Assessment of risk of venous thromboembolism [facility] Start: 12-10-2022 Inhalation therapy procedure [facility] Start: 12-10-2022 Insertion of catheter into peripheral vein [facility] Start: 12-10-2022 Oxygen therapy [facility] Start: 12-10-2022 Providing care according to standard [facility] Start: 12-10-2022 Referral to service [facility] Start: 12-10-2022 [facility] Start: 12-10-2022 Following clinical pathway protocol [facility] Start: 12-10-2022 Verification routine [facility] Start: 12-10-2022 Admission procedure [facility] Start: 12-10-2022 Hospital admission, emergency, from emergency room, medical nature [facility] Start: 12-10-2022 [facility] Start: 12-10-2022 Patient referral to dietitian [facility] Start: 11-05-2022 Patient discharge [facility] Start: 11-04-2022 [facility] Start: 10-29-2022 [facility] Start: 10-28-2022 Respiratory therapy [facility] Start: 10-27-2022 End: 10-28-2022 [facility] Start: 10-27-2022 Care planning and problem solving actions [facility] Start: 10-27-2022 Respiratory therapy [facility] Start: 10-27-2022 Elevation of head of bed [facility] Start: 10-27-2022 Mouth care [facility] Start: 10-27-2022 Notification of physician [facility] Start: 10-27-2022 Tracheostomy care [facility] Start: 10-27-2022 Airway suction technique [facility] Start: 10-27-2022 Oxygen therapy [facility] Start: 10-27-2022 Assessment of risk of venous thromboembolism [facility] Start: 10-27-2022 Insertion of catheter into peripheral vein [facility] Start: 10-27-2022 Measuring intake and output [facility] Start: 10-27-2022 Physiotherapy of chest [facility] Start: 10-27-2022 Providing care according to standard [facility] Start: 10-27-2022 Vital signs measurements [facility] Start: 10-27-2022 Admission procedure [facility] Start: 10-27-2022 [facility] Start: 06-22-2022 End: 06-22-2022 Blood culture [facility] Start: 06-22-2022 End: 06-22-2022 [facility] Start: 06-12-2022 [facility] Start: 04-01-2022 Venous catheter care management [facility] Start: 04-01-2022 Patient discharge [facility] Start: 03-30-2022 Referral to ear, nose and throat service [facility] Start: 03-29-2022 Referral to general surgeon [facility] Start: 03-28-2022 [facility] Start: 03-27-2022 Care planning and problem solving actions [facility] Start: 03-27-2022 Referral to occupational therapist [facility] Start: 03-26-2022 Consultation [facility] Start: 03-25-2022 Referral to service [facility] Start: 03-25-2022 Airway suction technique [facility] Start: 03-25-2022 Oxygen therapy [facility] Start: 03-25-2022 End: 03-26-2022 [facility] Start: 03-25-2022 Care planning and problem solving actions [facility] Start: 03-25-2022 [facility] Start: 03-24-2022 [facility] Start: 03-24-2022 Following clinical pathway protocol [facility] Start: 03-24-2022 Assessment of risk of venous thromboembolism [facility] Start: 03-24-2022 Catheterization of vein [facility] Start: 03-24-2022 Consultation [facility] Start: 03-24-2022 Inhalation therapy procedure [facility] Start: 03-24-2022 Insertion of catheter into peripheral vein [facility] Start: 03-24-2022 Measuring intake and output [facility] Start: 03-24-2022 Patient referral to [facility] Start: 03-24-2022 Providing care according to standard [facility] Start: 03-24-2022 Referral to service [facility] Start: 03-24-2022 [facility] Start: 03-24-2022 Admission procedure [facility] Start: 03-24-2022 End: 03-24-2022 Blood culture [facility] Start: 03-24-2022 Patient referral to [facility] Start: 02-22-2022 DEPRESSION ASSESSMENT DEPRESSION ASSESSMENT [facility] Start: 12-05-2021 Patient discharge [facility] Start: 12-04-2021 [facility] Start: 12-03-2021 Referral to service [facility] Start: 12-03-2021 Consultation [facility] Start: 12-02-2021 Referral to general surgeon [facility] Start: 12-02-2021 Physiotherapy of chest [facility] Start: 12-01-2021 [facility] Start: 11-30-2021 Following clinical pathway protocol [facility] Start: 11-30-2021 Transfusion of blood product [facility] Start: 11-30-2021 Assessment of risk of venous thromboembolism [facility] Start: 11-30-2021 Consultation [facility] Start: 11-30-2021 Insertion of catheter into peripheral vein [facility] Start: 11-30-2021 Measuring intake and output [facility] Start: 11-30-2021 Oxygen therapy [facility] Start: 11-30-2021 Providing care according to standard [facility] Start: 11-30-2021 Referral to occupational therapist [facility] Start: 11-30-2021 Referral to service [facility] Start: 11-30-2021 [facility] Start: 11-30-2021 Verification routine [facility] Work Phone: Start: 11-30-2021 Admission procedure [facility] Start: 11-30-2021 CT angiography of chest with contrast CTA Chest W/WO Contrast [facility] Work Phone: Start: 11-30-2021 CTA Chest vessels WO and W contrast IV [facility] Work Phone: Start: 11-30-2021 End: 12-01-2021 [facility] Start: 10-23-2021 Influenza vaccination INFLUENZA (#1) [facility] Start: 10-15-2018 Hemoglobin A1c/Hemoglobin.total in Blood HBA1C [facility] Start: 08-27-2017 End: 08-27-2017 Appointment [facility] Work Phone: Start: 08-28-2016 End: 08-28-2016 Appointment Appointment [facility] Work Phone: Start: 08-28-2016 End: 08-28-2016 *BMP *BMP [facility] Work Phone: Start: 08-28-2016 End: 08-28-2016 BNP *Brain Natriuretic Peptide BNP [facility] Work Phone: Start: 08-28-2016 End: 08-28-2016 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 OPERATOR [facility] Work Phone: Start: 08-28-2016 End: 08-28-2016 Follow Up Appt 1 year Follow Up Appt 1 year [facility] Work Phone: Start: 05-27-2016 End: 05-28-2016 aPTT *PTT-Partial Thromboplastin Time [facility] Work Phone: Start: 05-27-2016 End: 05-28-2016 CBC W Auto Differential panel - Blood *CBC [facility] Work Phone: Start: 05-27-2016 End: 05-28-2016 Coagulation factor induced.INR assay in platelet poor plasma *PT/INR [facility] Work Phone: Start: 01-08-2016 End: 01-08-2016 Bacterica wound culture *Culture and Sensitivity, wound [facility] Work Phone: Start: 04-12-2012 Hepatitis B screening URINE ALBUMIN:CREATININE RATIO [facility] Start: 04-08-2012 Hepatitis B surface antibody level LDL CHOLESTEROL [facility] Start: 04-08-2012 PNEUMOCOCCAL (2 - PCV) PNEUMOCOCCAL (2 - PCV) [facility] ic Start: 2001 Urine microalbumin profile DTAP,TDAP,TD (1 - Tdap) [facility] Start: 02-01-2000 ANNUAL PCP TEAM CHRONIC DISEASE VISIT ANNUAL PCP TEAM CHRONIC DISEASE VISIT [facility] Start: 02-01-2000 HIV SCREENING HIV SCREENING [facility] Start: 02-01-1992 3 comp foot exam completed DIABETIC FOOT EXAM [facility] Start: 02-01-1992 Hepatitis C antibody, confirmatory test DILATED RETINAL EXAM [facility] Start: 1982 COVID-19 VACCINE (#1) COVID-19 VACCINE (#1) [facility] Start: 1982 HEPATITIS B (1 of 3 - 3-dose series) HEPATITIS B (1 of 3 - 3-dose series) [facility] 24 hour urine calciu m output measurement [facility] Alanine aminotransfe rase [Enzymatic activity/volume] in Serum or Plasma [facility] Alanine aminotransfe rase [Enzymatic activity/volume] in Serum or Plasma [facility] Albumin [Mass/volume ] in Serum or Plasma [facility] Albumin [Mass/volume ] in Serum or Plasma [facility] Alkaline phosphatase [Enzymatic activity/volume] in Serum or Plasma [facility] Alkaline phosphatase [Enzymatic activity/volume] in Serum or Plasma [facility] Anion gap measurement [facility] Anion gap measurement [facility] An[facility] gap measurement [facility] Anion gap measurement [facility] An[facility] gap measurement [facility] Anion gap measurement [facility] Anion gap measurement [facility] Aspartate aminotrans ferase [Enzymatic activity/volume] in Serum or Plasma [facility] Aspartate aminotrans ferase [Enzymatic activity/volume] in Serum or Plasma [facility] Bacteria identified in Blood by Culture Blood Culture [facility] Bacteria identified in Sputum by Respiratory culture [facility] Work Phone: Bacteria identified in Sputum by Respiratory culture [facility] Bilirubin, total measurement [facility] Bilirubin, total measurement [facility] BUN/Creatinine ratio [facility] BUN/Creatinine ratio [facility] BUN/Creatinine ratio [facility] BUN/Creatinine ratio [facility] BUN/Creatinine ratio [facility] BUN/Creatinine ratio [facility] BUN/Creatinine ratio [facility] Calcium [Mass/volume ] in Serum or Plasma [facility] Calcium [Mass/volume ] in Serum or Plasma [facility] Calcium [Mass/volume ] in Serum or Plasma [facility] Calcium [Mass/volume ] in Serum or Plasma [facility] Calcium [Mass/volume ] in Serum or Plasma [facility] Calcium [Mass/volume ] in Serum or Plasma [facility] Calcium [Mass/volume ] in Serum or Plasma [facility] Carbon dioxide, tota l [Moles/volume] in Serum or Plasma [facility] Carbon dioxide, tota l [Moles/volume] in Serum or Plasma [facility] Carbon dioxide, tota l [Moles/volume] in Serum or Plasma [facility] Carbon dioxide, tota l [Moles/volume] in Serum or Plasma [facility] Carbon dioxide, tota l [Moles/volume] in Serum or Plasma [facility] Carbon dioxide, tota l [Moles/volume] in Serum or Plasma [facility] Carbon dioxide, tota l [Moles/volume] in Serum or Plasma [facility] Chloride [Moles/volu me] in Serum or Plasma [facility] Chloride [Moles/volu me] in Serum or Plasma [facility] Chloride [Moles/volu me] in Serum or Plasma [facility] Chloride [Moles/volu me] in Serum or Plasma [facility] Chloride [Moles/volu me] in Serum or Plasma [facility] Chloride [Moles/volu me] in Serum or Plasma [facility] Chloride [Moles/volu me] in Serum or Plasma [facility] Creatinine [Moles/vo lume] in Serum or Plasma [facility] Creatinine [Moles/vo lume] in Serum or Plasma [facility] Creatinine [Moles/vo lume] in Serum or Plasma [facility] Creatinine [Moles/vo lume] in Serum or Plasma [facility] Creatinine [Moles/vo lume] in Serum or Plasma [facility] Creatinine [Moles/vo lume] in Serum or Plasma [facility] Creatinine [Moles/vo lume] in Serum or Plasma [facility] Erythrocyte mean corpuscular volume determination [facility] Glucose [Mass/volume ] in Serum or Plasma [facility] Glucose [Mass/volume ] in Serum or Plasma [facility] Glucose [Mass/volume ] in Serum or Plasma [facility] Glucose [Mass/volume ] in Serum or Plasma [facility] Glucose [Mass/volume ] in Serum or Plasma [facility] Glucose [Mass/volume ] in Serum or Plasma [facility] Glucose [Mass/volume ] in Serum or Plasma [facility] Hematocrit [Volume Fraction] of Blood [facility] Hematocrit [Volume Fraction] of Blood [facility] Hematocrit [Volume Fraction] of Blood [facility] Hematocrit [Volume Fraction] of Blood [facility] Hematocrit [Volume Fraction] of Blood [facility] Hematocrit [Volume Fraction] of Blood [facility] Hematocrit [Volume Fraction] of Blood [facility] Hemoglobin [Mass/vol ume] in Blood [facility] Hemoglobin [Mass/vol ume] in Blood [facility] Hemoglobin [Mass/vol ume] in Blood [facility] Hemoglobin [Mass/vol ume] in Blood [facility] Hemoglobin [Mass/vol ume] in Blood [facility] Hemoglobin [Mass/vol ume] in Blood [facility] Hemoglobin [Mass/vol ume] in Blood [facility] Insulin-like growth factor [Moles/volume] in Serum or Plasma [facility] Lactic acid measurement [facility] Leukocytes [#/volume ] in Blood [facility] Leukocytes [#/volume ] in Blood [facility] Leukocytes [#/volume ] in Blood [facility] Leukocytes [#/volume ] in Blood [facility] Leukocytes [#/volume ] in Blood [facility] Leukocytes [#/volume ] in Blood [facility] Leukocytes [#/volume ] in Blood [facility] Mean corpuscular hem oglobin concentration determination [facility] Mean corpuscular hem oglobin concentration determination [facility] Mean corpuscular hem oglobin concentration determination [facility] Mean corpuscular hem oglobin concentration determination [facility] Mean corpuscular hem oglobin concentration determination [facility] Mean corpuscular hem oglobin concentration determination [facility] Mean corpuscular hem oglobin concentration determination [facility] Mean corpuscular hem oglobin determination [facility] Mean corpuscular hem oglobin determination [facility] Mean corpuscular hem oglobin determination [facility] Mean corpuscular hem oglobin determination [facility] Mean corpuscular hem oglobin determination [facility] Mean corpuscular hem oglobin determination [facility] Mean corpuscular hem oglobin determination [facility] Measurement of renal function [facility] Measurement of renal function [facility] Measurement of renal function [facility] Measurement of renal function [facility] Measurement of renal function [facility] Measurement of renal function [facility] Measurement of renal function [facility] Microscopic observat ion [Identifier] in Unspecified specimen by Gram stain Gram Stain [facility] Work Phone: Neutrophil count [facility] Neutrophil count [facility] Neutrophil percent differential count [facility] Neutrophil percent differential count [facility] Patient Education [facility] Work Phone: Patient referral [facility] Work Phone: Platelets [#/volume] in Blood [facility] Platelets [#/volume] in Blood [facility] Platelets [#/volume] in Blood [facility] Platelets [#/volume] in Blood [facility] Platelets [#/volume] in Blood [facility] Platelets [#/volume] in Blood [facility] Platelets [#/volume] in Blood [facility] Potassium [Moles/vol ume] in Serum or Plasma [facility] Potassium [Moles/vol ume] in Serum or Plasma [facility] Potassium [Moles/vol ume] in Serum or Plasma [facility] Potassium [Moles/vol ume] in Serum or Plasma [facility] Potassium [Moles/vol ume] in Serum or Plasma [facility] Potassium [Moles/vol ume] in Serum or Plasma [facility] Potassium [Moles/vol ume] in Serum or Plasma [facility] Prolactin measurement [facility] Red blood cell count [facility] Red blood cell count [facility] Red blood cell count [facility] Red blood cell count [facility] Red blood cell count [facility] Red blood cell count [facility] Red blood cell count [facility] Red cell distributio n width determination [facility] Red cell distributio n width determination [facility] Red cell distributio n width determination [facility] Red cell distributio n width determination [facility] Red cell distributio n width determination [facility] Red cell distributio n width determination [facility] Red cell distributio n width determination [facility] Respiratory Culture Respiratory Culture [facility] Work Phone: Respiratory pathogen s DNA and RNA 12b panel - Unspecified specimen by YAYO with probe detection [facility] Serum testosterone measurement [facility] Sodium [Moles/volume ] in Serum or Plasma [facility] Sodium [Moles/volume ] in Serum or Plasma [facility] Sodium [Moles/volume ] in Serum or Plasma [facility] Sodium [Moles/volume ] in Serum or Plasma [facility] Sodium [Moles/volume ] in Serum or Plasma [facility] Sodium [Moles/volume ] in Serum or Plasma [facility] Sodium [Moles/volume ] in Serum or Plasma [facility] Testosterone Free [Mass/volume] in Serum or Plasma [facility] Testosterone measurement [facility] Total protein measurement [facility] Total protein measurement [facility] Urea nitrogen [Mass/ volume] in Serum or Plasma [facility] Urea nitrogen [Mass/ volume] in Serum or Plasma [facility] Urea nitrogen [Mass/ volume] in Serum or Plasma [facility] Urea nitrogen [Mass/ volume] in Serum or Plasma [facility] Urea nitrogen [Mass/ volume] in Serum or Plasma [facility] Urea nitrogen [Mass/ volume] in Serum or Plasma [facility] Urea nitrogen [Mass/ volume] in Serum or Plasma [facility] Work Phone: [facility] Immunizations Immunization Date Immunization Notes Care Provider [facility] 01-09-2021 influenza, injectabl e, quadrivalent, preservative free Dr. Chente Conn Work Phone: [facility] 01-09-2021 influenza, seasonal, injectable Dr. Chente Conn Work Phone: [facility] 04-03-2020 Covid (Moderna) Dr. Chente cooper Work Phone: [facility] 02-06-[address] Chente Conn Work Phone: [facility] 12-11-[address] Chente Conn Work Phone: [facility] 01-20-[address] Chente Conn Work Phone: [facility] 02-19-2017 influenza, injectabl e, quadrivalent, preservative free Dr. Chente Conn Work Phone: [facility] 02-19-2017 influenza, seasonal, injectable Dr. Chente Conn Work Phone: [facility] 12-23-2015 influenza, injectabl e, quadrivalent, preservative free Dr. Chente Conn Work Phone: [facility] 12-23-2015 influenza, seasonal, injectable Dr. Chente Conn Work Phone: [facility] 11-08-2014 influenza, injectabl e, quadrivalent, preservative free LELIA Leavitt MD Work Phone: [facility] 01-15-2014 influenza, injectabl e, quadrivalent, preservative free Dr. Chente Conn Work Phone: [facility] 01-15-2014 influenza, seasonal, injectable Dr. Chente Conn Work Phone: [facility] 12-14-2012 influenza virus vacc ine, unspecified formulation LELIA Leavitt MD Work Phone: [facility] 11-22-[address] Darwin Conn Work Phone: [facility] Work Phone: 11-22-2012 pneumococcal vaccine , unspecified formulation Dr. Chente Conn Work Phone: [facility] 04-08-2011 influenza virus vacc ine, unspecified formulation LELIA Leavitt MD Work Phone: [facility] 04-08-2011 pneumococcal polysaccharide vaccine, 23 valent LELIA Leavitt MD Work Phone: [facility] Payers Date Payer Category Payer Unknown [id number] 2023 Self-pay [id number] 2020 Medicare [id number] 2020 Medicare MEDICARE MEDICAR E A AND B [id number] 2020-Present [phone] [place] [address] Medicare [id number] 2018 Medicaid MEDICAID [facility] MEDICAID [id number] 2018-Present [phone] [address] [place] [address] Medicaid [id number] 2018 Unknown SAVANNAH MORSE PPO [id number] 2018-Present [phone] [address] [place] [address] PPO [id number] 2016 Medicaid [id number] 2016 Unknown [id number] Unknown [id number] 2.16.840.1.138094.3.579.2.462 Unknown [id number] 2.16.840.1.567314.3.579.2.462 Unknown [id number] 2.16.840.1.367757.3.579.2.462 Unknown [id number] 2.16.840.1.366376.3.579.2.462 Unknown [id number] 2.16.840.1.206165.3.579.2.462 Unknown [id number] 2.16.840.1.070906.3.579.2.462 Unknown [id number] 2.16.840.1.639303.3.579.2.462 Unknown [id number] 2.16.840.1.443499.3.579.2.462 Unknown [id number] 2.16.840.1.215694.3.579.2.462 Unknown [id number] 2.16.840.1.900084.3.579.2.462 Unknown [id number] 2.16.840.1.275375.3.579.2.462 Unknown [id number] 2.16.840.1.764200.3.579.2.462 Unknown [id number] 2.16.840.1.057746.3.579.2.462 Unknown [id number] 2.16.840.1.751834.3.579.2.462 Unknown [id number] 2.16.840.1.493254.3.579.2.462 Unknown [id number] 2.16.840.1.248897.3.579.2.462 Unknown [id number] 2.16.840.1.813530.3.579.2.462 Unknown [id number] 2.16.840.1.741918.3.579.2.462 Unknown [id number] 2.16.840.1.978347.3.579.2.462 Unknown [id number] 2.16.840.1.219568.3.579.2.462 Unknown [id number] 2.16840.1.031202.3.579.2.462 Unknown [id number] 2.16.840.1.993996.3.579.2.462 Unknown [id number] 2.16840.1.529494.3.579.2.462 Unknown [id number] 2.16.840.1.641377.3.579.2.462 Unknown [id number] 2.16.840.1.245998.3.579.2.462 Unknown [id number] 2.16.840.1.786929.3.579.2.462 Unknown [id number] 2.16.840.1.955140.3.579.2.462 Unknown [id number] 2.16.840.1.315844.3.579.2.462 Unknown [id number] 2.16.840.1.625539.3.579.2.462 Unknown [id number] 2.16.840.1.799189.3.579.2.462 Unknown [id number] 2.16.840.1.947391.3.579.2.462 Unknown [id number] 2.16.840.1.244057.3.579.2.462 Unknown [id number] 2.16.840.1.038738.3.579.2.462 Unknown [id number] 2.16.840.1.121374.3.579.2.462 Unknown [id number] 2.16.840.1.010040.3.579.2.462 Unknown [id number] 2.16.840.1.848143.3.579.2.462 Unknown [id number] 2.16.840.1.173112.3.579.2.462 Unknown [id number] 2.16.840.1.370613.3.579.2.462 Unknown [id number] 2.16.840.1.110935.3.579.2.462 Unknown [id number] 2.16840.1.938106.3.579.2.462 Unknown [id number] 2.16840.1.448493.3.579.2.462 Unknown [id number] 2.16840.1.460613.3.579.2.462 Unknown [id number] 2.16840.1.305826.3.579.2.462 Social History Date Type Detail Facility Start: 05-19-2021 End: 01-16-2023 Tobacco smoking status NHIS Unknown if ever smoked [facility] Start: 04-25-2020 None [facility] Start: 04-25-2020 With Family [facility] Start: 07-08-2019 Non-smoker [facility] Start: 1980 Sex Assigned At Male W [facility] Start: 2024 Tobacco smoking stat us ARIS Never smoked tobacco [facility] Start: 12-27-2019 Alcohol intake Not Asked [facility] Start: 1980 Sex Assigned At Not on file [facility] Start: 05-17-2024 End: 05-23-2024 Sex Male (finding) [facility] Medical Equipment Procedure Code Equipment Code Equipment Origin al Text Equipment Identifier Dates Catheter Ascenda 4fr .5mm Silicone 114cm 86cm Intrathecal 2 Piece Connector - [id number] Start: 04-05-2018 Pump Int Thcl 40 ml Snchr 2 Drg - [id number] Start: 03-08-2012 Pump Synchromed Ii 87.5in Titanium Silicone 26in Intrathecal [place] - [id number] Start: 04-05-2018 Tube Shiley 10.8 mm 6.4mm 6 76mm Tracheostomy Cuff Low Pressure Fenestrate - [id number] Start: 04-20-2018 Goals Date Patient Goal Desired Activity /State Functional Status Date Assessment Result Facility 03-25-2023 Functional status Bedrest [facility] Work Phone: 03-25-2023 Functional status Fair [facility] Work Phone: 12-13-2022 Functional status Bedrest [facility] Work Phone: 12-11-2022 Functional status Bedrest [facility] Work Phone: 11-05-2022 Functional status Chair [facility] Work Phone: 04-01-2022 Functional status Bedrest [facility] Work Phone: 03-31-2022 Functional status None [facility] Work Phone: 12-05-2021 Functional status With Assist of 2 [facility] Work Phone: 12-04-2021 Functional status Bedrest [facility] Work Phone: 12-03-2021 Functional status None [facility] Work Phone: Mental Status Date Assessment Result Facility 03-25-2023 Cognitive function Passive [facility] Work Phone: 03-24-2023 Cognitive function Voice/Name [facility] Work Phone: 12-13-2022 Cognitive function Voice/Name [facility] Work Phone: 12-13-2022 Cognitive function Dependent [facility] Work Phone: 12-11-2022 Cognitive function Voice/Name [facility] Work Phone: 11-05-2022 Cognitive function Voice/Name [facility] Work Phone: 06-12-2022 Cognitive function Awake;Alert;Appropriat e [facility] Work Phone: 04-01-2022 Cognitive function Voice/Name [facility] Work Phone: 03-31-2022 Cognitive function Demonstrates ability to follow instructions/comprehend [facility] Work Phone: 12-05-2021 Cognitive function Voice/Name [facility] Work Phone: 12-03-2021 Cognitive function Remote Impaired [facility] Work Phone: Clinical Notes 07-15-2018 to 07-27-2024 Note Date & Type Note Facility 07-27-2024 Radiology Diagnostic study note [facility] Imaging Services [address] [place] [address] Knee 1 or 2 Views MR#: [id number] Acct: [id number] Name: KRISS MICHAEL Rep #: [id number] : 1980 M 44 From: Manuel Bernabe MD PCP: Dr. Chente Conn MD Status: RE G CLI Study:Knee 1 or 2 Views Date of Exam: Exam# [id number] Ordering Dr: Gabrielle Quinones MD PROCEDURE: KNEE [...] due to the nonstandard projections. Reading Location: [id number] CC: Dr. Chente Conn MD; Dr. Roddy Quinones MD ~ Barley Steeper: Signed [facility] Work Phone: 06-15-2024 Evaluation note Diagnosis Onset Date Resolution Osteoporosis chronic June 15, 2024 1:47pm [facility] Work Phone: 1(475) 714-234302-11-2025 Evaluation note* Diagnosis Onset Date Resolution Status Admit Date Chronic respiratory failure chronic April 04, 2024 1:01pm [facility] Work Phone: 1(973) 302-647502-11-2025 Evaluation note* Diagnosis Onset Date Resolution Status Admit Date Chronic respiratory failure chronic April 04, 2024 1:01pm Osteoporosis chronic June 15, 2024 1:47pm [facility] Work Phone: 1(534) 480-506502-20-2024 Discharge summary Author Anthony Russell [facility] April 13, 2023 4:08pm Note Date/Time April 13, 2023 12:41pm [facility] Medical Records Department [address] [place] [address] Emergency Department Summary 04/13/23 MR#: [id number] Acct: [id number] Name: KRISS MICHAEL Rep #:[id number] : 1980 43 From: Anthony Russell MD [...] similar symptoms: Yes Recent Illness/Hospitalization: [facility] Medical History Acute dyspnea Anemia in chronic [...] 44.2 L Lymph % (Auto) 43.5 H Burnett % (Auto) 7.8 Eos % (Auto) 3.7 [...] your Primary Care Provider. Call [facility] ([phone]) or report to the closest Emergency Room. Call 911 if necessary. 04/13/23 9578 <Electronically signed by Anthony Russell MD> Cosigner Signature (if applicable): CC: Dr. Chente Conn MD ~ Signed [facility] Work Phone: 1(241) 133-951202-01-2024 Discharge summary Author Camacho [facility] March 25, 2023 10:43am Note Date/Time March 25, 2023 1 0:40am [facility] Medical Records Department [address] [place] [address] Instructions for Home/Discharge Instructions 03/25/23 1035 MR#: [id number] Acct: [id number] Name: KRISS MICHAEL Rep #:[id number] : 1980 43 From: Camacho Gonzalez DO [...] MD; Dr. Cari Cavazos MD ~ Signed [facility] Work Phone: 1(579) 238-267102-01-2024 Progress note Author Jacek Monsalve [facility] March 25, 2023 9:12am Note Date/Time March 25, 2023 7 :06am [facility] Medical Records Department [address] [place] [address] Progress Note - Preconstruction Manager 03/25/2304 MR#: [id number] Acct: [id number] Name: KRISS MICHAEL Rep #:[id number] : 1980 43 From: Jacek Monsalve MD [...] neurologic status Charges/Coding Visit Charges Inpatient E&M: 22240 Subs Hosp L2 03/25/23 0912 <Electronically signed by Jacek Monsalve MD> Cosigner Signature (if applicable): CC: ~ Signed [facility] Work Phone: 1(845) 696-174201-31-2024 Progress note Author Camacho Gonzalez [facility] March 24, 2023 6:18pm Note Date/Time March 24, 2023 6 :15pm [facility] Medical Records Department [address] [place] [address] Progress Note - Hospitalist 03/24/23 1809 MR#: [id number] Acct: [id number] Name: KRISS MICHAEL Rep #:[id number] : 1980 43 From: Camacho Gonzalez DO [...] % (Auto) 62.2, Lymph % (Auto) 25.6, Burnett % (Auto) 8.9, Eos % (Auto) 2.9, [...] 0.30, AST 14 L, ALT 25, Alkaline [id number] H, Total Protein 7.5, Albumin 3.1 L, [...] 35 minutes Charges/Coding Visit Charges Inpatient E&M: 89944 Subs Hosp L2 03/24/238 <Electronically signed by Camacho Gonzalez DO> Cosigner Signature (if applicable): CC: ~ Signed [facility] Work Phone: 1(419) 729-631001-31-2024 Consult note Author Jacek Monsalve [facility] March 24, 2023 2:48pm Note Date/Time March 24, 2023 8 :48am [facility] Medical Records Department [address] [place] [address] Consultation - Preconstruction Manager 03/24/23805 MR#: [id number] Acct: [id number] Name: KRISS MICHAEL Rep #:[id number] : 1980 43 From: Jacek Monsalve MD [...] from the outpatient office, who presents to [facility] on 03/23/2023 secondary to recurrent episodes [...] and actively tracking people around the room. PENDING SALE TO [facility] Medical History Acute dyspnea Anemia in chronic [...] (Auto) 70.6 H, Lymph % (Auto) 21.7, Burnett % (Auto) 5.1, Eos % (Auto) 2.0, [...] % (Auto) 62.2, Lymph % (Auto) 25.6, Burnett % (Auto) 8.9, Eos % (Auto) 2.9, [...] 0.30, AST 14 L, ALT 25, Alkaline [id number] H, Total Protein 7.5, Albumin 3.1 L, Globulin 4.4 H, Albumin/Globulin Ratio 0.7 L Micro: Microbiology 03/23/23 12:55 Mucosa - Nose Respiratory Panel (PCR) - Final Imaging Radiology Impression Chest X-Ray 03/23/23 13:22 IMPRESSION: Limited inspiratory effort due to patient''s condition. There has been essentially no change prior study. Electronically Signed: Matti Greer MD at 13:40 EST Reading Location ID and State: [facility] / [place] , Service support , Charges/Coding Visit Charges Inpatient E&M: 99337 Init Hosp L2 03/24/23 1448 <Electronically signed by Jcaek Monsalve MD> Cosigner Signature (if applicable): CC: Dr. Krishna Siddiqui MD; Dr. Jacek Monsalve MD; Dr. Yovanny Moreira DO; Dr. Mckinley Tristan MD; Dr. Zackary Castro MD; Dr. Chente Conn MD; Dr. Gris Hewitt MD; Dr. Patrice Langley MD; Dr. Lucia Dillard MD; Dr. Goran Rose MD; Dr. Luis Mohr MD; Dr. Vito Bright MD; Dr. Luther Huggins MD; Dr. aCri Cavazos MD~ Signed [facility] Work Phone: 1(170) 480-614501-30-2024 Discharge summary Author Siddharth De La Rosa [facility] March 23, 2023 5:09pm Note Date/Time March 23, 2023 1 2:22pm [facility] Medical Records Department [address] [place] [address] Emergency Department Summary 03/23/23 MR#: [id number] Acct: [id number] Name: KRISS MICHAEL Rep #:[id number] : 1980 43 From: Siddharth De La [...] has not been around any sick persons. PENDING SALE TO [facility] <REYNA Scott - Last Filed: 03/23/23 16:27> [facility]END[facility] Medical History Acute dyspnea Anemia in chronic [...] Oxygen Delivery Method Mechanical Ventilator Mechanical Ventilator [facility] <Dominic Méndez PSYCHIATRIC CLINICIAN-C - Last Filed: 03/23/23 16:27> [facility] Lab Data Labs: Laboratory Results - last 24 hr 03/23/23 03/23/23 12:35 13:23 WBC 13.0 H RBC 5.07 Hgb 13.1 Hct 42.2 MCV 83.2 MCH 25.8 L MCHC 31.0 L RDW Std Deviation 45.1 H RDW Coeff of Emilee 14.8 H Plt Count 229 MPV 10.1 Immature Gran % (Auto) 0.400 Neut % (Auto) 70.6 H Lymph % (Auto) 21.7 Burnett % (Auto) 5.1 Eos % (Auto) 2.0 [...] Rosa MD - Last Filed: 03/23/23 17:09> [facility] Lab Data Labs: Laboratory Results - last 24 hr 03/23/23 03/23/23 12:35 13:23 WBC 13.0 H RBC 5.07 Hgb 13.1 Hct 42.2 MCV 83.2 MCH 25.8 L MCHC 31.0 L RDW Std Deviation 45.1 H RDW Coeff of Emilee 14.8 H Plt Count 229 MPV 10.1 Immature Gran % (Auto) 0.400 Neut % (Auto) 70.6 H Lymph % (Auto) 21.7 Burnett % (Auto) 5.1 Eos % (Auto) 2.0 [...] min), Including time spent:, Discussing w/Patient &/or Family/Diesel Engine Ii 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 Call [facility] ([phone]) or report to the closest Emergency Room. Call 911 if necessary. 03/23/23 1705 <Electronically signed by Siddharth De La Rosa MD> Cosigner Signature (if applicable): 03/23/23 1627 <Electronically signed by Dominic HEBERTC> CC: Dr. Chente Conn MD ~ Signed [facility] Work Phone: 1(212) 515-561401-30-2024 History and physical note Author Lucia Dillard [facility] March 23, 2023 4:44pm Note Date/Time March 23, 2023 4 :37pm [facility] Medical Records Department [address] [place] [address] H&P Exam - Hospitalist 03/23/23 1633 MR#: [id number] Acct: [id number] Name: KRISS MICHAEL Rep #:[id number] : 1980 43 From: Lucia Dillard MD [...] seizure disorder, and GERD who presented to [facility] 03/23/2023 due to concern for aspiration [...] is presently not in any acute distress. PENDING SALE [facility] Medical History Acute dyspnea Anemia in chronic [...] (Auto) 70.6 H, Lymph % (Auto) 21.7, Burnett % (Auto) 5.1, Eos % (Auto) 2.0, [...] documentation, 56Minutes Charges/Coding Visit Charges Inpatient E&M: 72094 Init Hosp L2 03/23/23 1644 <Electronically signed by Lucia Dillard MD> Cosigner Signature (if applicable): CC: Dr. Chente Conn MD; Dr. Lucia Dillard MD~ Signed [facility] Work Phone: 1(852) 921-480311-25-2023 Discharge summary Author Dalton Lester [facility] January 16, 2023 10:58pm Note Date/Time January 16, 2023 7:42pm [facility] Medical Records Department [address] [place] [address] Emergency Department Summary 01/16/23 MR#: [id number] Acct: [id number] Name: KRISS MICHAEL Rep #:[id number] : 1980 42 From: Amena OAKES PCP: [...] surgeon did not want to operate again. PENDING SALE TO [facility] <CHAMP Merlos - Last Filed: 01/16/23 20:59> [facility]END[facility] S[facility] Medical History (Updated 01/16/23 @ 20:59 by [...] <CHAMP Merlos - Last Filed: 01/16/23 20:59> [facility] Narrative Medical decision making narrative: History [...] 75.2 H Lymph % (Auto) 16.8 L Burnett % (Auto) 6.5 Eos % (Auto) 1.1 [...] Clarity Clear Urine pH 6.0 Ur Specific [place] 1.025 Urine Protein 30 H Urine Glucose [...] workup. This patient was seen with a PA/PSYCHIATRIC CLINICIAN Individually assessed they patient including history and physical. I have reviewed everything on the chart that is availableand agree with the documentation provided by the PA/PSYCHIATRIC CLINICIAN including discussion about the assessment, treatment plan, [...] 75.2 H Lymph % (Auto) 16.8 L Burnett % (Auto) 6.5 Eos % (Auto) 1.1 [...] Clarity Clear Urine pH 6.0 Ur Specific [place] 1.025 Urine Protein 30 H Urine Glucose [...] vomiting) Qty: 30 0RF Primary Care Provider: Chnete Conn Referrals: Chente Conn MD [Primary Care Provider] - Disposition Disposition: Home, Self Care What to do if you have Problems For any increased pain, shortness of breath, bleeding, nausea or vomiting, chestpain, or any unexpected problems, contact your Primary Care Provider. Call [facility] ([phone]) or report to the closest Emergency Room. Call 911 if necessary. 01/16/232058 <Electronically signed by Amena OAKES> Cosigner Signature (if applicable): 01/16/232257 <Electronically signed by Dalton Lester DO> CC: Dr. Chente Conn MD ~ Signed [facility] Work Phone: 1(355) 212-880510-22-2023 Discharge summary Author [facility] December 13, 2022 6:10pm Note Date/Time December 13, 2022 1 2:47pm [facility] Medical Records Department [address] [place] [address] Discharge Summary 12/13/22 1247 MR#: [id number] Acct: [id number] Name: KRISS MICHAEL Rep #:[id number] : 1980 42 From: Donte adam DO PCP: Dr. Chente Conn MD Status:AD M IN Location: [place] [id number]- [id number] Providers Date of Admission: 12/10/22 Date [...] history of seizure disorder who presented to [facility] ED on 12/10/2022 with several episodes [...] Self Care Charges/Coding Visit Charges Inpatient E&M: 76573 Disch Hosp >30min 12/13/221809 <Electronically signed by Donte Abebe DO> Cosigner Signature (if applicable): CC: Dr. Donte Abebe DO; Dr. Chente Conn MD~ Signed [facility] Work Phone: 1(642) 567-595510-22-2023 Discharge summary Author Donte Abebe [facility] December 13, 2022 12:47pm Note Date/Time December 13, 2022 1 2:43pm [facility] Medical Records Department [address] [place] [address] Instructions for Home/Discharge Instructions 12/13/22 1242 MR#: [id number] Acct: [id number] Name: KRISS MICHAEL Rep #:[id number] : 1980 42 From: Donte adam DO [...] CC: Dr. Chente Conn MD ~ Signed [facility] Work Phone: 1(416) 761-793710-22-2023 Progress note Author Stefan Gregory [facility] December 13, 2022 11:49am Note Date/Time December 13, 2022 1 1:48am [facility] Medical Records Department [address] [place] [address] Progress Note - GI 12/13/22 1147 MR#: [id number] Acct: [id number] Name: KRISS MICHAEL Rep #:[id number] : 1980 42 From: Stefan Gregory DO PCP: Dr. Chente Conn MD Status:AD M IN Location: [place] [address] Subjective Subjective No issues with his tube [...] current management. Charges/Coding Visit Charges Inpatient E&M: 22147 Subs Hosp L3 12/13/22 1149 <Electronically signed by Stefan Gregory DO> Cosigner Signature (if applicable): CC: ~ Signed [facility] Work Phone: 1(949) 884-429010-21-2023 Progress note Author Stefan Gregory [facility] December 12, 2022 5:05pm Note Date/Time December 12, 2022 5 :02pm [facility] Medical Records Department [address] [place] [address] Progress Note - GI 12/12/22 1702 MR#: [id number] Acct: [id number] Name: KRISS MICHAEL Rep #:[id number] : 1980 42 From: Stefan Gregory DO PCP: Dr. Chente Conn MD Status:AD M IN Location: [place] [address] Subjective Subjective Patient underwent an upper endoscopy [...] seems stable. Charges/Coding Visit Charges Inpatient E&M: 24844 Subs Hosp L3 12/12/22 1705 <Electronically signed by Stefan Gregory DO> Cosigner Signature (if applicable): CC: ~ Signed [facility] Work Phone: 1(619) 687-850910-21-2023 Progress note Author Donte Abebe [facility] December 12, 2022 2:28pm Note Date/Time December 12, 2022 2 :27pm [facility] Medical Records Department [address] [place] [address] Progress Note - Hospitalist 12/12/22 1423 MR#: [id number] Acct: [id number] Name: KRISS MICHAEL Rep #:[id number] : 1980 42 From: Donte adam DO PCP: Dr. Chente Conn MD Status:AD M [facility] Reason for Visit Reason for [...] history of seizure disorder who presented to [facility] ED on 12/10/2022 with several episodes [...] 35 minutes. Charges/Coding Visit Charges Inpatient E&M: 29726 Subs Hosp L2 12/12/22 1428 <Electronically signed by Donte Abebe DO> Cosigner Signature (if applicable): CC: ~ Signed [facility] Work Phone: 1(532) 690-558910-20-2023 Progress note Author Donte [facility] December 11, 2022 5:31pm Note Date/Time December 11, 2022 5 :31pm [facility] Medical Records Department [address] [place] [address] Progress Note - Hospitalist 12/11/22 1723 MR#: [id number] Acct: [id number] Name: KRISS MICHAEL Rep #:[id number] : 1980 42 From: Donte adam DO PCP: Dr. Chente Conn MD Status:AD M IN Location: [place] [id number]- 1 Reason for Visit Reason for Visit: [...] history of seizure disorder who presented to [facility] ED on 12/10/2022 with several episodes [...] 35 minutes. Charges/Coding Visit Charges Inpatient E&M: 68195 Subs Hosp L2 12/11/22 0674 <Electronically signed by Donte Abebe DO> Cosigner Signature (if applicable): CC: ~ Signed [facility] Work Phone: 1(314) 347-737510-20-2023 Procedure [facility] 12-11-2022 Procedure [facility]10-19-2023 History and physical note Author Donte [facility] December 10, 2022 5:27pm Note Date/Time December 10, 2022 1 2:21pm [facility] Medical Records Department [address] [place] [address] H&P Exam - Hospitalist 12/10/22 1217 MR#: [id number] Acct: [id number] Name: KRISS MICHAEL Rep #:[id number] : 1980 42 From: Donte adam DO PCP: Dr. Chente Conn MD Status:AD M IN Location: [facility] [id number]- 1 HPI - General General Date of Admission: 12/10/22 HPI Narrative KRISS MICHAEL, is a 42 M who presents PENDING SALE TO [facility] Medical History (Updated 12/10/22 @ 15:05 by [...] (Auto) 72.2 H, Lymph % (Auto) 19.2, Burnett % (Auto) 5.9, Eos % (Auto) 2.1, [...] history of seizure disorder who presented to [facility] ED on 12/10/2022 with several episodes [...] 55 minutes. Charges/Coding Visit Charges Inpatient E&M: 00736 Init Hosp L2 12/10/22 1727 <Electronically signed by Donte Abebe DO> Cosigner Signature (if applicable): CC: Dr. Donte Abebe DO; Dr. Chente Conn MD~ Signed [facility] Work Phone: 1(170) 342-392210-19-2023 Discharge summary Author Miky Rahman [facility] December 10, 2022 4:28pm Note Date/Time December 10, 2022 1 0:15am [facility] Medical Records Department [address] [place] [address] Emergency Department Summary 12/10/22 MR#: [id number] Acct: [id number] Name: KRISS MICHAEL Rep #:[id number] : 1980 42 From: Miky Chiang PCP: Dr. Chente Conn MD Status:AD M IN Location: [place] [address] HPI HPI - GI History of Present [...] the summer with PCP. Specialists are at [facility] with surgery. However mother states has [...] gastroenterology, hospitalist This note was generated with [employer] dictation software. It may contain incorrectwords, spelling, [...] (Auto) 72.2 H Lymph % (Auto) 19.2 Burnett % (Auto) 5.9 Eos % (Auto) 2.1 [...] palsy, Hematemesis Disposition Disposition: Acute Care Hospital [facility] Discharge Date/Time: 12/10/22 14:37 What to do if you have Problems For any increased pain, shortness of breath, bleeding, nausea or vomiting, chestpain, or any unexpected problems, contact your Primary Care Provider. Call [facility] ([phone]) or report to the closest Emergency Room. Call 911 if necessary. 12/10/22 7715 <Electronically signed by Miky Chiang> Cosigner Signature (if applicable): CC: Dr. Chente Conn MD ~ Signed [facility] Work Phone: 1([phone]) 154-953509-14-2023 Discharge summary Author Vanessa Roberts [facility] November 05, 2022 11:44am Note Date/Time November 05, 2022 11:38am [facility] Medical Records Department [address] [place] [address] Discharge Summary 11/05/22 1136 MR#: [id number] Acct: [id number] Name: KRISS MICHAEL Rep #:[id number] : 1980 42 From: Vanessa Roberts DO [...] had surgery for esophageal cancer at [facility]. Overall he is remained incredibly stable [...] Self Care Charges/Coding Visit Charges Inpatient E&M: 44713 Disch Hosp 11/05/22 1142 <Electronically signed by Vanessa Roberts DO> Cosigner Signature (if applicable): CC: Dr. Chente Conn MD; Dr. Vanessa Roberts DO~ Signed [facility] Work Phone: 1(921) 680-523309-13-2023 Progress note Author Vanessa Roberts [facility] November 04, 2022 2:07pm Note Date/Time November 04, 2022 2:07pm [facility] Medical Records Department [address] [facility] [place] [address] Progress Note - Hospitalist 11/04/22 1405 MR#: [id number] Acct: [id number] Name: KRISS MICHAEL Rep #:[id number] : 1980 42 From: Vanessa Roberts DO [...] home tomorrow. Charges/Coding Visit Charges Inpatient E&M: 77158 Subs Hosp L1 11/04/22 1402 <Electronically signed by Vanessa Roberts DO> Cosigner Signature (if applicable): CC: ~ Signed [facility] Work Phone: 1(786) 494-196809-12-2023 Progress note Author Vanessa Roberts [facility] November 03, 2022 1:40pm Note Date/Time November 03, 2022 1:40pm [facility] [facility] Medical Records Department [address] [place] [address] Progress Note - Hospitalist 11/03/22 1338 MR#: [id number] Acct: [id number] Name: KRISS MICHAEL Rep #:[id number] : 1980 42 From: Vanessa Roberts DO [...] from surgery Charges/Coding Visit Charges Inpatient E&M: 91586 Subs Hosp L1 11/03/22 1340 <Electronically signed by Vanessa Roberts DO> Cosigner Signature (if applicable): CC: ~ Signed [facility] Work Phone: 1(610) 130-764309-11-2023 Progress note Author Vanessa Roberts [facility] November 02, 2022 5:28pm Note Date/Time November 02, 2022 8:02am [facility] Medical Records Department [address] [place] [address] Progress Note - Hospitalist 11/02/22 0755 MR#: [id number] Acct: [id number] Name: KRISS MICHAEL Rep #:[id number] : 1980 42 From: Vanessa Roberts DO [...] having surgeryfor esophageal cancer chair at [facility]. Overall he is remained incredibly stable [...] -Full code Charges/Coding Visit Charges Inpatient E&M: 12849 Subs Hosp L1 11/02/22 1728 <Electronically signed by Vanessa Roberts DO> Cosigner Signature (if applicable): CC: ~ Signed [facility] Work Phone: 1(659) 659-672209-10-2023 Progress note Author Michael Posadas [facility] November 01, 2022 9:04am Note Date/Time November 01, 2022 7:28am [facility] Medical Records Department [address] [place] [address] Progress Note - Hospitalist 11/01/22726 MR#: [id number] Acct: [id number] Name: KRISS MICHAEL Rep #:[id number] : 1980 42 From: Michael Posadas MD [...] documentation, 35Minutes Charges/Coding Visit Charges Inpatient E&M: 80608 Subs Hosp L2 11/01/22 0904 <Electronically signed by Michael Posadas MD> Cosigner Signature (if applicable): CC: ~ Signed [facility] Work Phone: 1(538) 119-157809-09-2023 Progress note Author Michael Posadas [facility] October 31, 2022 10:50am Note Date/Time October 31, 2022 7:35am [facility] Medical Records Department [address] [place] [address] Progress Note - Hospitalist 10/31/22 0732 MR#: [id number] Acct: [id number] Name: KRISS MICHAEL Rep #:[id number] : 1980 42 From: Michael Posadas MD [...] documentation, 35Minutes Charges/Coding Visit Charges Inpatient E&M: 06416 Subs Hosp L2 10/31/22 1050 <Electronically signed by Michael Posadas MD> Cosigner Signature (if applicable): CC: ~ Signed [facility] Work Phone: 1(898) 408-156909-08-2023 Progress note Author [facility] October 30, 2022 10:37am Note Date/Time October 30, 2022 10:37am [facility] Medical Records Department [address] [facility] [place] [address] Progress Note 10/30/22 1030 MR#: [id number] Acct: [id number] Name: KRISS MICHAEL Rep #:[id number] : 1980 42 From: Cindy Alexandre MD [...] respite care. Charges/Coding Visit Charges Inpatient E&M: 28226 Subs Hosp L2 10/30/22 1037 <Electronically signed by Cindy Alexandre MD> Cindy Alexandre MD Cosigner Signature (if applicable): CC: ~ Signed [facility] Work Phone: 1(794) 943-388709-07-2023 Progress note Author Barry Young [facility] October 29, 2022 8:31am Note Date/Time October 29, 2022 8:31am [facility] Medical Records Department [address] [place] [address] Progress Note - Hospitalist 10/29/22827 MR#: [id number] Acct: [id number] Name: KRISS MICHAEL Rep #:[id number] : 1980 42 From: Barry stover MD [...] home instructions Charges/Coding Visit Charges Inpatient E&M: 54045 Subs Hosp L2 10/29/22 0831 <Electronically signed by Barry Young MD> Cosigner Signature (if applicable): CC: ~ Signed [facility] Work Phone: 1(427) 465-633709-06-2023 History and physical note Author [facility] October 28, 2022 7:30pm Note Date/Time October 27, 2022 2:40pm [facility] Medical Records Department [address] [place] [address] History & Physical Exam 10/27/22 1432 MR#: [id number] Acct: [id number] Name: KRISS MICHAEL Rep #:[id number] : 1980 42 From: Cindy Alexandre MD [...] have surgery for esophageal cancer at [facility]. PENDING SALE TO [facility] Medical History (Updated 10/28/22 @ 08:[address] Barry Yuong MD) Acute dyspnea Anemia in chronic illness [...] respite care. Charges/Coding Visit Charges Inpatient E&M: 98483 Init Hosp L2 10/28/221929 <Electronically signed by Cindy Alexandre MD> Cosigner Signature (if applicable): CC: Dr. Chente Conn MD; Dr. Cindy Alexandre MD~ Signed [facility] Work Phone: 1(221) 401-348209-06-2023 Progress note Author Barry Young [facility] October 28, 2022 8:40am Note Date/Time October 28, 2022 8:40am [facility] Medical Records Department [address] [place] [address] Progress Note - Hospitalist 10/28/2235 MR#: [id number] Acct: [id number] Name: KRISS MICHAEL Rep #:[id number] : 1980 42 From: Barry stover MD [...] home instructions Charges/Coding Visit Charges Inpatient E&M: 89922 Subs Hosp L2 10/28/22 0840 <Electronically signed by Barry Young MD> Cosigner Signature (if applicable): CC: ~ Signed [facility] Work Phone: 1([phone]) 460-832105-09-2023 Miscellaneous Notes* Telephone Encounter - Chichi Fowler RN - 06/30/2022 4:42 PM EDT [facility] nursing returned patient's mother Yue message regarding [...] e-mail. Mother will give order numbers to [facility]. Also recommended can apply stomahesive powder on mucosa. Advised maybe irritation from mucosa rubbing on pouch d/t prolapse vs the stool. Mom agreeable. Time spent: 30 minutes Chichi Fowler RN, BSN, CWOCN * Telephone Encounter - Amber Monreal RN - 06/30/2022 3:53 PM EDT [phone] Pt's mother called. She would like to discuss pt's stoma prolapse. documented [facility]-[address] De La Rosa [facility] June 22, 2022 8:24pm Note Date/Time June 22, 2022 6:47pm [facility] Medical Records Department [address] [place] [address] Emergency Department Summary 06/22/22 MR#: [id number] Acct: [id number] Name: KRISS MICHAEL Rep #:[id number] : 1980 42 From: Siddharth De La [...] measuring this specifically obviously. No hematuria. [facility] Medical History Acute dyspnea Anemia in chronic [...] % (Auto) 67.2 Lymph % (Auto) 21.5 Burnett % (Auto) 8.5 Eos % (Auto) 2.4 [...] Color Urine Clarity Urine pH Ur Specific Stratton Urine Protein Urine Glucose (UA) Urine Ketones Urine Occult Blood Urine Nitrite Urine Bilirubin Urine Urobilinogen Ur Leukocyte Esterase Urine RBC Urine WBC Ur Squamous Epith Cells Urine Bacteria Urine Mucus 06/22/22 06/22/22 19:10 19:20 WBC RBC Hgb Hct MCV MCH MCHC RDW Std Deviation RDW Coeff of Emilee Plt Count MPV Immature Gran % (Auto) Neut % (Auto) Lymph % (Auto) Burnett % (Auto) Eos % (Auto) Baso % [...] Sl Cldy Urine pH 8.0 Ur Specific Stratton 1.010 Urine Protein 30 H Urine Glucose [...] 19:23 EDT Reading Location ID and State: [address] [place] [address] Tel , Service support , Rhythm Strip [...] your Primary Care Provider. Call [facility] ([phone]) or report to the closest Emergency Room. Call 911 if necessary. 06/22/222023 <Electronically signed by Siddharth De La Rosa MD> Cosigner Signature (if applicable): CC: Dr. Chente Conn MD ~ Signed [facility] Work Phone: 1([phone]) 509-436304-24-2023 NoteHNO ID: [id number] Author: Cassie Ciu RN Service: ? Author Type: Registered Nurse [...] Requested samples from [employer] for Coloplast SenSura [place] MAXI Drainable pouch with soft outlet #41234. Order form provided. Also discussed use of [...] 1 hour 15 minutes Cassie BAL, RN, [facility]WMer[facility]04-24-2023 History of Present illness Narrative* Cassie [...] Uriah MAXI Drainable pouch with soft outlet #92422. Order form provided. Also discussed use of [...] effluent Current pouching system: Jazzmine Cohesive StomaWrap, Carrington New Image flat flange with tape collar(cutting [...] RN - 06/15/2022 3:33 PM EDT The [address] [address] Patient: Kriss Michael Patient Address: [address] [place] [address] [place] [address] Preferred Gender: male Date of : 1980 Type of Stoma: End Descending Colostomy Diagnosis: Constipation K59.0 OSTOMY SUPPLY ORDER FORM One Piece Ostomy Pouch Item Type: Coloplast Post-op pouch with a window #31725 30 day use - 2 Boxes Coloplast SenSura Uriah MAXI Drainable Pouch with Soft Outlet Transparent Cut-to-fit 4 #12568 30 dayuse - 1 Box Tonia Hollihesive #7701 30 day use - 2 Boxes Procare Abdominal binder (62-74) #[id number] 30 day use - 2 Binders OR Procare Abdominal binder (45-62) #[id number] 30 day use - 2 Binders Refills: 11 Attending Physician: Dr. Leavitt For immediate authorization, please contact the physician s office. [facility] Nurse: VALERIANO Peters, CWOCN SIGNATURE: Cassie Cui RN PATIENT NAME: Kriss Michael DATE: June 15, 2022 TIME: 3:34 PM CONTACT #: [phone] documented in this encounterPrem[facility]04-24-2023 NoteHNO ID: [id number] Author: Cassie Cui RN Service: ? Author Type: Registered Nurse Type: Progress Notes Filed: 06/30/2022 4:35 PM Note Text: The [address] [address] Patient: Kriss Michael Patient Address: [address] [place] [address] [place] [address] Preferred Gender: male Date of : 1980 Type of Stoma: End Descending Colostomy Diagnosis: Constipation K59.0 OSTOMY SUPPLY ORDER FORM Coloplast SenSura Uriah MAXI Drainable Pouch with Soft Outlet Transparent Cut-to-fit 4 #01087 30 day use - 1 Box Coloplast Bed Drainage Bag #18852 30 day use-2 bags Central Scheduler #0927 30 day use 1 Xavi Luna #7700 30 day use - 2 Boxes Procare Abdominal binder (62-74) #[id number] 30 day use - 2 Binders OR Procare Abdominal binder (45-62) #[id number] 30 day use - 2 Binders Refills: 11 Attending Physician: Dr. Leavitt For immediate authorization, please contact the physician?s office. [facility] Nurse: VALERIANO Peters, CWOCN Addendum by: VALERIANO Virgen, CWOCN SIGNATURE: Cassie Cui RN PATIENT NAME: Kriss Michael DATE: June 15, 2022 TIME: 3:34 PM CONTACT #: [phone]04-21-[address] Munoz [facility] June 12, 2022 12:31pm Note Date/Time June 12, 2022 10: 51am [facility] Medical Records Department [address] [place] [address] Emergency Department Summary 06/12/22 MR#: [id number] Acct: [id number] Name: KRISS MICHAEL Rep #:[id number] : 1980 42 From: Naveen Hidalgo PCP: [...] % (Auto) 50.9 Lymph % (Auto) 35.9 Burnett % (Auto) 8.1 Eos % (Auto) 3.3 [...] your Primary Care Provider. Call [facility] ([phone]) or report to the closest Emergency Room. Call 911 if necessary. 06/12/22 1231 <Electronically signed by Naveen Munoz DO> Cosigner Signature (if applicable): CC: Dr. Chente Conn MD ~ Signed [facility] Work Phone: 1(448) 319-227503-15-2023 NoteHNO ID: [id number] Author: Yola Leavitt MD Service: ? Author [...] He has not been seen at [facility] since 2019 when he came for [...] visit. Either the patient or their legal veterans service representative has been informed of the risks and benefits of -- and alternatives to -- treatment through a remote evaluation and consents to proceed with the evaluation remotely. Risk of morbidity, mortality and/or complications of treatment plan: moderate I spent a total of 36 minutes on the date of the service which included preparing to see the patient and [id number] patient care.[facility]03-15-[facility] History of Present illness Narrative* I [...] He has not been seen at [facility] since 2019 when he came for [...] included preparing to see the patient and [id number]-[id number] patient care. documented in this encounterPrem[facility]02-21-2023 Miscellaneous Notes* Telephone Encounter - Geetha [...] see what could be done about this,. [phone] Ashly (mom) documented in this encounterPremier [facility]02-21-2023 Miscellaneous Notes* Telephone Encounter - Ebony Boateng - 04/14/2022 1:19 PM EST The patients mom stated that she can get into mychart. documented in this encounterPrem[facility] De La Torre [facility] March 24, 2022 8:03pm Note Date/Time March 24, 2022 5 :37pm [facility] Medical Records Department [address] [place] [address] Emergency Department Summary 03/24/22 MR#: [id number] Acct: [id number] Name: KRISS MICHAEL Rep #:[id number] : 1980 42 From: Dario De La [...] similar symptoms: Yes Recent Illness/Hospitalization: Yes PFSH PENDING SALE TO [facility] Medical History Acute dyspnea Anemia in chronic [...] 79.9 H Lymph % (Auto) 13.1 L Burnett % (Auto) 5.3 Eos % (Auto) 1.3 [...] results, treatment for sepsis), Discussing w/Patient &/or 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 Call [facility] ([phone]) or report to the closest Emergency Room. Call 911 if necessary. 03/24/222002 <Electronically signed by Dario De La Torre MD> Cosigner Signature (if applicable): CC: Dr. 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 - Carlisle removed - BP stable - MAP goal [...] to goal rate - finishing reglan 10mg [id number] for 24 hours today - monitor ostomy [...] of this encounter (statuses as of 05/08/2022) [facility] History of Past illness Narrative* Problem [...] to goal rate - finishing reglan 10mg g9yosaw for 24 hours today - monitor ostomy [...] of this encounter (statuses as of 06/16/2022) [facility] History of Past illness Narrative* Problem [...] to goal rate - finishing reglan 10mg [id number] for 24 hours today - monitor ostomy [...] of this encounter (statuses as of 07/01/2022) [facility]* Diagnosis Onset Date Resolution Status Chronic respiratory failure chronic [facility] Work Phone: evaluation note* Diagnosis Onset Date Resolution Status Chronic respiratory failure chronic Nonrheumatic mitral valve prolapse [facility] Work Phone: Evaluation note* Diagnosis Onset Date Resolution Status Nonrheumatic mitral valve prolapse [facility] Work Phone: Evaluation note* Diagnosis Onset Date Resolution Status Nonrheumatic mitral valve prolapse chronic Chronic respiratory failure [facility] Work Phone: Evaluation note* Diagnosis Onset Date Resolution Status Chronic respiratory failure chronic Acute dyspnea acute Cyanosis acute Hypoxia acute Cerebral palsy [facility] Work Phone: Evaluation note* Diagnosis Onset Date Resolution Status Chronic respiratory failure chronic Acute dyspnea acute Colostomy prolapse acute Cyanosis acute Hypoxia acute Pseudomonas pneumonia acute Cerebral palsy chronic Chronic respiratory failure [facility] Work Phone: Evaluation note* Diagnosis Onset Date Resolution Status Acute dyspnea acute Colostomy prolapse acute Cyanosis acute Hypoxia acute Pseudomonas pneumonia acute Cerebral palsy chronic Chronic respiratory failure chronic Pseudomonas pneumonia acute Chronic respiratory failure [facility] Work Phone: Evaluation note* Diagnosis Onset Date Resolution Status Cerebral palsy chronic Chronic respiratory failure chronic Acute dyspnea resolved Cyanosis resolved Hypoxia resolved Chronic respiratory failure chronic Chronic respiratory failure [facility] Work Phone: Evaluation note* Diagnosis Onset Date Resolution Status Cerebral palsy chronic Chronic respiratory failure chronic Acute dyspnea resolved Cyanosis resolved Hypoxia resolved Chronic respiratory failure chronic Chronic respiratory failure chronic Acidosis, lactic acute Aspiration into airway acute Hyperpyrexia acute Sepsis acute Sinus tachycardia acute Cerebral palsy chronic Chronic respiratory failure with hypoxia chronic [facility] Work Phone: Evaluation note* Diagnosis Functional disorder of stomach- Primary Unspecified functional disorder of stomach documented in this encounter [facility]* Diagnosis Onset Date Resolution Status Acidosis, lactic resolved Aspiration into airway resol alan Hyperpyrexia resolved Sepsis resolved Sinus tachycardia resolved [facility] Work Phone: Evaluation note* Diagnosis 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 Attention to colostomy documented in this encounter [facility] HospitalEvaluation noteNo assessment information availableWUniversity [facility]als [facility] Work Phone: Evaluation note* Diagnosis Onset Date Resolution Status Chronic respiratory failure with hypoxia chronic [facility] Work Phone: Evaluation note* Diagnosis Onset Date Resolution Status Cerebral palsy acute GI bleed resolved Hematemesis acute [facility] Work Phone: Evaluation note* Diagnosis Onset Date Resolution Status GI bleed resolved Hematemesis resolved [facility] Work Phone: Evaluation note* Diagnosis Onset Date Resolution Status Cerebral palsy chronic GI bleed resolved Hematemesis resolved Cerebral palsy chronic Chronic respiratory failure chronic [facility] Work Phone: Evaluation note* Diagnosis Onset Date Resolution Status Cerebral palsy chronic GI bleed resolved Hematemesis resolved Cerebral palsy chronic Chronic respiratory failure chronic Acidosis, lactic acute Acute hypoxemic respiratory failure acute Aspiration pneumonia acute Cerebral palsy chronic [facility] Work Phone: Evaluation note* Diagnosis Onset Date Resolution Status Cerebral palsy chronic GI bleed resolved Hematemesis resolved Cerebral palsy chronic Chronic respiratory failure chronic Acidosis, lactic acute Acute hypoxemic respiratory failure acute Aspiration pneumonia acute Emesis, persistent acute Cerebral palsy chronic Chronic respiratory failure chronic [facility] Work Phone: Evaluation note* Diagnosis Onset Date Resolution Status Cerebral palsy chronic Chronic respiratory failure chronic Cerebral palsy chronic Chronic respiratory failure chronic Acidosis, lactic resolved Acute hypoxemic respiratory failure resolved Emesis, persistent resolved [facility] Work Phone: History and physical note Author Lucia Dillard [facility] March 23, 2023 4:44pm Note Date/Time March 23, 2023 4 :37pm [facility] Medical Records Department [address] [place] [address] H&P Exam - Hospitalist 03/23/23 1633 MR#: [id number] Acct: [id number] Name: KRISS MICHAEL Rep #:[id number] : 1980 43 From: Lucia Dillard MD [...] seizure disorder, and GERD who presented to [facility] 03/23/2023 due to concern for aspiration [...] is presently not in any acute distress. PENDING SALE TO [facility] Medical History Acute dyspnea Anemia in chronic [...] (Auto) 70.6 H, Lymph % (Auto) 21.7, Burnett % (Auto) 5.1, Eos % (Auto) 2.0, [...] documentation, 56Minutes Charges/Coding Visit Charges Inpatient E&M: 34126 Init Hosp L2 03/23/23 1644 <Electronically signed by Lucia Dillard MD> Cosigner Signature (if applicable): CC: Dr. Chente Conn MD; Dr. Lucia Dillard MD~ Signed [facility] Work Phone: Hospital Discharge instructions Additional Instructions Please return if you notice any changes to the patient's oxygenation. Please follow with his primary care physicians as well as specialist for outpatient evaluation and further treatment.[facility] Work Phone: Hospital Discharge instructions Additional Instructions Continue your current medications as prescribed. Ativan as needed for anxiety. Follow-up with your doctor as needed or return if worse. His labs today and CAT scan were unremarkable. There is no signs of any blood clots. No signs of any pneumonia. [facility] Work Phone: Reason for referral (narrative)No reason for referral information availableWooCherrington Hospital Work Phone: Chief Complaint and Reason [...] No May 19, 2021 9:15pm Power of Emergency Operator No May 19 9:15pm Advance Directive Response Recorded Date/ Time Advance Directives No March 12, 2016 10:51am Living Will No November 30 11:11am Power of Emergency Operator No November 30 11:11am Advance Directive Response Recorded Date/ Time Advance Directives No March 12, 2016 10:51am Living Will No November 30 3:13pm Power of Emergency Operator No November 30 3:13pm Advance Directive Response Recorded Date/ Time Advance Directives No March 12, 2016 9:51am Living Will No November 30 2:13pm Power of Emergency Operator No November 30 2:13pm Advance Directive Response Recorded Date/ Time Name of Medical Power of Emergency Operator PT MOM February 24, 2022 4:16pm Advance Directives No March 12, 2016 9:51am Living Will No February 24 4:16pm Power of Emergency Operator Yes February 24, 2 023 4:16pm Advance Directive Response Recorded Date/ Time Name of Medical Power of Emergency Operator PT MOM February 24, 2022 4:16pm Name of Medical Power of Emergency Operator parents Miky Pelaez March 24, 2022 5:11pm Advance Directives No March 12, 2016 9:51am Living Will No March 24 5:11pm Power of Emergency Operator Yes March 24, 2022 5:11pm Advance Directive Response Recorded Date/ Time Name of Medical Power of Emergency Operator PT MOM February 24, 2022 4:16pm Name of Medical Power of Emergency Operator parents Miky viera nd Benigno March 24, 2022 5:11pm Advance Directives No March 12, 2016 9:51am Living Will No March 24 9:35pm Power of Emergency Operator No March 24, 2022 9:35pm Latest Code [...] Date/ Time Name of Medical Power of Emergency Operator PT MOM February 24, 2022 5:16pm Name of Medical Power of Emergency Operator parents Miky Pelaez March 24, 2022 6:11pm Advance Directives No March 12, 2016 10:51am Living Will No March 24 10:35pm Power of Emergency Operator No March 24, 2022 10:35pm Advance Directive Response Recorded Date/ Time Name of Medical Power of Emergency Operator PT MOM February 24, 2022 5:16pm Name of Medical Power of Emergency Operator parents Miky Pelaez March 24, 2022 6:11pm Advance Directives No March 12, 2016 10:51am Living Will No June 12, 2022 10:42am Power of Emergency Operator No June 12 10:42am Advance Directive Response Recorded Date/ Time Name of Medical Power of Emergency Operator PT MOM February 24, 2022 5:16pm Name of Medical Power of Emergency Operator parents Miky Pelaez March 24, 2022 6:11pm Name of Medical Power of Emergency Operator MOTHER June 22, 2022 6:28pm Advance Directives No March 12, 2016 10:51am Living Will No June 22, 2022 6: 28pm Power of Emergency Operator Yes June 22, 2022 6:28pm Advance Directive Response Recorded Date/ Time Name of Medical Power of Emergency Operator MOTHER June 22, 2022 6:28pm Advance Directives No March 12, 2016 10:51am Living Will No June 22, 2022 6: 28pm Power of Emergency Operator Yes June 22, 2022 6:28pm Advance Directive Response Recorded Date/ Time Name of Medical Power of Emergency Operator [employer] S prosty October 27, 2022 5:26pm Advance Directives No March 12, 2016 10:51am Living Will No October 27, 023 5:26pm Power of Emergency Operator Yes October 27, 2022 5:26pm Advance Directive Response Recorded Date/ Time Name of Medical Power of Emergency Operator [employer]y October 27, 2022 5:26pm Advance Directives No March 12, 2016 10:51am Living Will No December 10 9:56am Power of Emergency Operator No December 10, 2022 9:56am Advance Directive Response Recorded Date/ Time Name of Medical Power of Emergency Operator [employer]y October 27, 2022 5:26pm Advance Directives No March 12, 2016 10:51am Living Will No December 10 2:53pm Power of Emergency Operator No December 10, 2022 2:53pm Advance Directive Response Recorded Date/ Time Advance Directives No March 12, 2016 9:51am Living Will No January 16, 023 7:25pm Power of Emergency Operator No January 16, 2023 7:25pm Name of Medical Power of Emergency Operator [employer] October 27, 2022 4:26pm Advance Directive Response Recorded Date/ Time Name of Medical Power of Emergency Operator Mother March 23, 2023 12:16pm Advance Directives No March 12, 2016 9:51am Living Will No Kiah 30th, 20 24 12:16pm Power of Emergency Operator Yes March 23, 2023 12:16pm Advance Directive Response Recorded Date/ Time Name of Medical Power of Emergency Operator Mother March 23, 2023 5:05pm Advance Directives No March 12, 2016 9:51am Living Will No March 23 5:05pm Power of Emergency Operator Yes March 23, 2023 5:05pm Advance Directive Response Recorded Date/ Time Name of Medical Power of Emergency Operator Mother March 23, 2023 5:05pm Name of Medical Power of Emergency Operator parents April 13, 2023 12:23pm Advance Directives No March 12, 2016 9:51am Living Will Yes April 13 12:23pm Power of Emergency Operator Yes April 13, 2023 12:23pm Advance Directive Response Recorded Date/ Time Name of Medical Power of Emergency Operator Mother March 23, 2023 6:05pm Name of Medical Power of Emergency Operator parents April 13, 2023 1:23pm Advance Directives No March 12, 2016 10:51am Living Will Yes April 13 1:23pm Power of Emergency Operator Yes April 13, 2023 1:23pm Advance Directive Response Recorded Date/ Time Living Will Yes April 13 1:23pm Do you have a Healthcare Power of Emergency Operator? Yes April 13, 2023 1:23pm Living Will No January 30 5:12pm Do you have a Healthcare Power of Emergency Operator? No 2024 5:12pm Advance Directives No March 12, 2016 10:51am Advance Directive Response Recorded Date/ Time Living Will Yes April 13 1:23pm Do you have a Healthcare Power of Emergency Operator? Yes April 13, 2023 1:23pm Advance Directives [...] Provider, Referr ing Provider Active Valarie Kee PSYCHIATRIC CLINICIAN, PSYCHIATRIC CLINICIAN-C Attending Provider Active Team Status: Active Member Role Status Dates Dr. Chente Conn MD Primary Care Provider Active Dayo Jo MD Emergency Provider Active Dr. Cindy Alexandre MD Admit Provider, Referring Provider, Other Provider Active Dr. Jacek Monsalve MD Other Provider Active Dr. Yovanny Moreira DO Attending Provider, Other Provide r Active Dr. Armando Palza MD Other Provider Active Dr. John Tolentino MD Other Provider Active Valarie Kee PSYCHIATRIC CLINICIAN, PSYCHIATRIC CLINICIAN-C Other Provider Active Dr. Lucia Dillard MD [...] Tolentino MD Other Provider Active Valarie Kee PSYCHIATRIC CLINICIAN, PSYCHIATRIC CLINICIAN-C Other Provider Active Dr. Lucia Dillard MD [...] Tolentino MD Other Provider Active Valarie Kee PSYCHIATRIC CLINICIAN, PSYCHIATRIC CLINICIAN-C Other Provider Active Dr. Lucia Dillard MD [...] Tolentino MD Other Provider Active Valarie Kee PSYCHIATRIC CLINICIAN, PSYCHIATRIC CLINICIAN-C Other Provider Active Dr. Lucia Dillard MD [...] MD Other Provider Active Valarie Kee NP, PSYCHIATRIC CLINICIAN-C Other Provider Active Dr. Lucia Dillard MD [...] MD Other Provider Active Valarie Kee NP, PSYCHIATRIC CLINICIAN-C Other Provider Active Dr. Lucia Dillard MD [...] Tolentino MD Other Provider Active Valarie Kee PSYCHIATRIC CLINICIAN, PSYCHIATRIC CLINICIAN-C Other Provider Active Dr. Lucia Dillard MD [...] Tolentino MD Other Provider Active Valarie Kee PSYCHIATRIC CLINICIAN, PSYCHIATRIC CLINICIAN-C Other Provider Active Dr. Fiona Echavarria MD [...] Tolentino MD Other Provider Active Valarie Kee PSYCHIATRIC CLINICIAN, PSYCHIATRIC CLINICIAN-C Other Provider Active Dr. Fiona Echavarria MD [...] Chente Cnon MD Primary Care Provider Active Dr. Dario [...] Tolentino MD Other Provider Active Valarie Kee PSYCHIATRIC CLINICIAN, PSYCHIATRIC CLINICIAN-C Other Provider Active Team Status: Inactive Member [...] Tolentino MD Other Provider Active Valarie Kee PSYCHIATRIC CLINICIAN, PSYCHIATRIC CLINICIAN-C Other Provider Active Grain Origination Specialist Relationship Specialty Start Date End Date Chente Perkins MD [address] [place] [address] PCP - General 06/03/00 [facility] 05/19/18 Grain Origination Specialist Relationship Specialty Start Date End Date Chente Perkins MD [address] [place] [address] PCP - General 06/03/00 [facility] Resource 05/19/18 Grain Origination Specialist Relationship Specialty Start Date End Date Chente Perkins MD [address] [place] [address] PCP - General 06/03/00 [facility] Resource 05/19/18 Team Status: Active [...] Tolentino MD Other Provider Active Valarie Kee PSYCHIATRIC CLINICIAN, PSYCHIATRIC CLINICIAN-C Other Provider Active Dr. Lucia Dillard MD [...] Tolentino MD Other Provider Active Valarie Kee PSYCHIATRIC CLINICIAN, PSYCHIATRIC CLINICIAN-C Other Provider Active Dr. Lucia Dillard MD [...] Tolentino MD Other Provider Active Valarie Kee PSYCHIATRIC CLINICIAN, PSYCHIATRIC CLINICIAN-C Other Provider Active Dr. Lucia Dillard MD [...] Tolentino MD Other Provider Active Valarie Kee PSYCHIATRIC CLINICIAN, PSYCHIATRIC CLINICIAN-C Other Provider Active Dr. Lucia Dillard MD [...] Tolentino MD Other Provider Active Valarie Kee PSYCHIATRIC CLINICIAN, PSYCHIATRIC CLINICIAN-C Other Provider Active Dr. Lucia Dillard MD [...] Tolentino MD Other Provider Active Valarie Kee PSYCHIATRIC CLINICIAN, PSYCHIATRIC CLINICIAN-C Other Provider Active Dr. Lucia Dillard MD [...] MD Other Provider Active Valarie Kee NP, PSYCHIATRIC CLINICIAN-C Other Provider Active Dr. Lucia Dillard MD [...] MD Other Provider Active Valarie Kee NP, PSYCHIATRIC CLINICIAN-C Other Provider Active Dr. Lucia Dillard MD [...] MD Other Provider Active Valarie Kee NP, PSYCHIATRIC CLINICIAN-C Other Provider Active Dr. Roberto Hathaway MD [...] Tolentino MD Other Provider Active Valarie Kee PSYCHIATRIC CLINICIAN, PSYCHIATRIC CLINICIAN-C Other Provider Active Dr. Roberto Hathaway MD [...] MD Other Provider Active Valarie Kee NP, PSYCHIATRIC CLINICIAN-C Other Provider Active Dr. Roberto Hathaway MD [...] Tolentino MD Other Provider Active Valarie Kee PSYCHIATRIC CLINICIAN, PSYCHIATRIC CLINICIAN-C Other Provider Active Dr. Roberto Hathaway MD [...] DO Referring Provider, Emergency P zulema Active Grain Origination Specialist Relationship Specialty Start Date End Date Chente Perkins MD [address] [place] [id number] PCP - General 06/03/00 [facility] 05/19/18 Team Status: Inactive Member Role Status Dates Dr. hCente Conn MD Primary Care Provider Active Dr. [...] Admit Provider, Other Provider A ctive Dr. Krisnha Siddiqui MD Other Provider Active Dr. Jacek [...] Torey Huffman MD Primary Care Provider, Attending [facility] Active Team Status: Active Member Role Status [...] 2024 End: April 04, 2024 Amber Dior PSYCHIATRIC CLINICIAN-C Attending Provider Active Start: April 04, 2024 [...] 2024 End: May 09, 2024 Valarie Kee PSYCHIATRIC CLINICIAN, PSYCHIATRIC CLINICIAN-C Attending Provider Active Start: May 09, 2024 End: May 09, 2024 Valarie Kee PSYCHIATRIC CLINICIAN, PSYCHIATRIC CLINICIAN-C Referring Provider Active Start: May 09, 2024 [...] 2024 End: May 09, 2024 Valarie Kee PSYCHIATRIC CLINICIAN, PSYCHIATRIC CLINICIAN-C Attending Provider Active Start: May 09, 2024 End: May 09, 2024 Valarie Kee PSYCHIATRIC CLINICIAN, PSYCHIATRIC CLINICIAN-C Referring Provider Active Start: May 09, 2024 [...] 2024 End: May 09, 2024 Valarie Kee PSYCHIATRIC CLINICIAN, PSYCHIATRIC CLINICIAN-C Attending Provider Active Start: May 09, 2024 End: May 09, 2024 Valarie Kee PSYCHIATRIC CLINICIAN, PSYCHIATRIC CLINICIAN-C Referring Provider Active Start: May 09, 2024 [...] or prosecute any alcohol or drug abuse patient.[facility] the event this information is protected by the Federal Confidentiality of Alcohol and Drug Abuse Patient Records regulations: The Federal rules restrict any use of the information to criminally investigate or prosecute any alcohol or drug abuse patient.[facility] the event this information is protected by the Federal Confidentiality of Alcohol and Drug Abuse Patient Records regulations: The Federal rules restrict any use of the information to criminally investigate or prosecute any alcohol or drug abuse patient.[facility] the event this information is protected by the Federal Confidentiality of Alcohol and Drug Abuse Patient Records regulations: The Federal rules restrict any use of the information to criminally investigate or prosecute any alcohol or drug abuse patient.[facility] the event this information is protected by the Federal Confidentiality of Alcohol and Drug Abuse Patient Records regulations: The Federal rules restrict any use of the information to criminally investigate or prosecute any alcohol or drug abuse patient.[facility] Reason for Visit (unrecogniz ed section and content) Reason Comments Patient Update Patient Question Reason Comments Patient Update Reason Comments Follow Up Reason Comments Stoma Consult (unrecognized sect ion and content) No Status Records FoundNo Status Records Found INFORMATION SOURCE (unrecogn ized section and content) DATE CREATED AUTHOR 07/02/2022 [facility] DATE CREATED AUTHOR 'S LAN LOVE 09/01/2024 [facility] FOR RECORDS PERTAINING TO PATIENTS WHO ARE [...] BE BASED ON THE PRIMARY CLINICAL RECORDS. [facility]. provides no warranty or guarantee of the accuracy or completeness of information in this document.
--- OUTSIDE RECORDS SUMMARY | 2024-09-03 14:37 | XMS RPT_ITS | CCD ---
Author Organization [facility] Care Team Providers Care Mammography Technologist Name Role Phone Aurora VARGAS, Luis Cooley Unavailable DeFinis, Harumi Y Unavailable Unavailable Coreen, RN, Bella Cooley Unavailable Unavailgalo Waite MD, Maury Anthony Unavailable Marco ESPINO, Chente Perez Unavailable DeFinis, Harumi Y Unavailable Unavailable Trenton, Harumi Y Unavailable Unavailable Dr. Chente Conn Primary Care Provider Dr. Chente Conn Referring Provider Vidhya GAS BLENDER, GAS BLENDER-C Valarie Attending Provider Dr. Maury Waite Attending [...] John Tolentino Other Provider Unavailab pio Kee GAS BLENDER, GAS BLENDER-C Valarie Other Provider Dr. Lucia Dillard Other [...] Provider Dr. Chente Conn Referring Provider Vidhya GAS BLENDER, GAS BLENDER-C Valarie Attending Provider Dr. Chente Conn Primary Care Provider Dr. Maury Waite Attending Provider Dr. Cindy Alexandre Referring Provider MD Dayo Jo Emergency Provider Dr. Cindy Alexandre Admit Provider Dr. Cindy Alexandre Other Provider Dr. Jacek Monsalve Other Provider Dr. Yovanny Moreira Attending Provider Dr. Yovanny Moreira Other Provider Dr. Armando Plaza Other Provider Dr. John Tolentino Other Provider Unavailab pio Kee GAS BLENDER, GAS BLENDER-C Valarie Other Provider Dr. Lucia Dillard Other Provider Dr. Fiona Echavarria Other Provider Dr. Lucia Dillard Attending Provider Dr. Jacek Monsalve Attending Provider Dr. Luis Simon Other Provider Dr. Roberto Hathaway Other Provider Dr. Luis Simon Attending Provider [phone] Dr. Barry Young Referring Provider Dr. Barry Young Attending Provider Dr. Barry Young Other Provider Dr. Chente Conn Referring Provider Vidhya GAS BLENDER, GAS BLENDER-C Valarie Attending Provider Dr. Chente Conn Primary Care Provider Dr. Maury Waite Attending Provider Dr. Cindy Alexandre Referring Provider MD Dayo Jo Emergency Provider Dr. Cindy Alexandre Admit Provider Dr. Cindy Alexandre Other Provider Dr. Jacek Monsalve Other Provider Dr. Yovanny Moreira Attending Provider Dr. Yovanny Moreira Other Provider Dr. Armando Plaza Other Provider Dr. John Tolentino Other Provider Unavailab pio Kee GAS BLENDER, GAS BLENDER-C Valarie Other Provider Dr. Lucia Dillard Other Provider Dr. Fiona Echavarria Other Provider Dr. Lucia Dillard Attending Provider Dr. Jacek Monsalve Attending Provider Dr. Luis Simon Other Provider Dr. Roberto Hathaway Other Provider Dr. Luis Simon Attending Provider Dr. Barry Young Referring Provider Dr. Barry Young Attending Provider Dr. Barry Young Other Provider Dr. Chente Conn Referring Provider Vidhya GAS BLENDER, GAS BLENDER-C Valarie Attending Provider Dr. Dario De La Torre Emergency Provider [facility], Dr. Jaiems Admit Provider [place], Dr. Jaimes Attending Provider Chente Perkins MD Primary Care Provider Dr. Chente Conn Primary Care Provider Dr. Dario De La Torre Emergency Provider [facility], Dr. Jaimes Admit Provider Dr. Fiona Echavarria Attending Provider Dr. Fiona Echavarria Other Provider Dr. Jacek Monsalve Other Provider Dr. Yovanny Moreira Other Provider Dr. Armando Plaza Other Provider Dr. John Tolentino Other Provider Unavailab pio Kee GAS BLENDER, GAS BLENDER-C Valarie Other Provider Dr. Lucia Dillard Attending Provider Dr. Jacek Monsalve Attending Provider Dr. Lucia Dillard Other Provider Dr. Roberto Hathaway Other Provider Bettie, Dr. Cindy Sharpe Referring Provider Dr. Luis Simon Other Provider [phone] Dr. Luis Simon Attending Provider [phone] Dr. Yovanny Moreira Attending Provider Bettie, Dr. [...] John Tolentino Other Provider Unavailab pio Kee GAS BLENDER, GAS BLENDER-C Valarie Other Provider Dr. Lucia Dillard Attending Provider Dr. Jacek Monsalve Attending Provider Dr. Lucia Dillard Other Provider Dr. Roberto Hathaway Other Provider [phone] Bettie, Dr. Cindy Sharpe Referring Provider [phone] Dr. Luis Simon Other Provider [phone] [...] Provider Dr. Jacek Monsalve Attending Provider Dr. Cmaacho Gonzalez Admit Provider Dr. Camacoh Gonzalez Other Provider Dr. Barry Young Other [...] Admit Provider Dr. Camacho Gonzalez Other Provider [phone] Barry Young Other Provider Dr. Cindy Alexandre Other Provider Dr. Vanessa Roberts Attending Provider Dr. Vanessa Roberts Other Provider Dr. Michael Posadas Other Provider Unavailable Dr. Chente Conn Referring Provider Vidhya GAS BLENDER, GAS BLENDER-C Valarie Attending Provider Dr. Chente Conn Primary Care Provider Dr. Chente Conn Primary Care Provider Dr. Stefan Gregory Attending Provider Dr. Donte Abebe Referring Provider Dr. Miky Rahman Emergency Provider Dr. Donte Abebe Admit Provider Dr. Donte Abebe Attending Provider Dr. Donte Abebe Other Provider Dr. Chente Conn Referring Provider Vidhya GAS BLENDER, GAS BLENDER-C Valarie Attending Provider Dr. Siddharth De La [...] Dr. Chente Conn Primary Care Provider [phone] Dr. Siddharth De La Rosa Emergency Provider Dr. Lucia Dillard Admit Provider Dr. Lucia Dillard Attending Provider Dr. Lucia Dillard Other Provider Dr. Krishna Siddiqui Other Provider Bello, Dr. Read Attending Provider Dr. Jacek Monsalve Other Provider Dr. Yovanny Moreira Other Provider Dr. Mckinley Tristan Other Provider [phone] Cari Cavazos Other Provider Dr. Zackary [...] Provider Dr. Chente Conn Referring Provider Vidhya GAS BLENDER, GAS BLENDER-C Valarie Attending Provider [phone] Dr. Siddharth [...] Chente Conn MD Primary Care Provider [phone] Senia VARGAS, Dr. Chente De La Paz Attending Provider [phone] Dr. Chente Conn MD Referring Provider [phone] Ajay THOMAS, Dr. Clement Attending Provider [phone] Ajay THOMAS, Dr. Clement Emergency Provider [phone] Torey Weber MD Attending Provider Ajay THOMAS, Dr. Clement Referring Provider [phone] Stacie VARGAS, Dr. Pereyra Attending Provider [phone] Roddy Quinones MD Referring Provider [phone] Chente Conn MD Referring Provider Unavailable Ovi GAS BLENDER-C, Amber Cooley Attending Provider Vidhya GAS BLENDER-CValarie Attending Provider Vidhya GAS BLENDER-CValarie Referring Provider Dr. Chente Conn MD Primary Care Provider [phone] Dr. Chente Conn MD Attending Provider [phone] Dr. Chente Conn MD Referring Provider [phone] King SAM, Dr. Felipe Attending Provider King [...] Care Provider Senia VARGAS, Dr. Chente De aL Paz Attending Provider [phone] Senia VARGAS, Dr. Chente De La Paz Referring Provider Chente Conn Primary Care Unavailable Matteo Posadas Attending Unavailable Matteo Posadas Referring Unavailable Chente Conn Primary Care Unavailable Vidhya GAS BLENDER, Valarie Attending Unavailable Vidhya GAS BLENDER, Valarie Referring Unavailable Chente Conn Primary Care [...] Referring Unavailable Amber Dior Attending Unavailable Vidhya GAS BLENDER, Valarie Attending Unavailable Nathanael, Torey Primary Care [...] acetaminophen / codeine drug allergy 07-04-19 15 [facility] Work Phone: (8 sources) cisapride drug allergy 07-04-19 15 [facility] Work Phone: (8 sources) codeine drug allergy 07-04-19 15 [facility] Work Phone: (20 sources) Dust; Translations: [DUST] allergy to substance 07-04-19 15 Other [facility] Work Phone: (8 sources) metroNIDAZOLE drug allergy 07-04-19 15 [facility] Work Phone: (14 sources) morphine; Translations: [ASTRAMORPH] allergy to substance 07-04-19 15 hallucinations [facility] Work Phone: (20 sources) morphine; Translations: [MORPHINE] drug allergy 06-23-19 Other: See Comments [facility] Work Phone: (14 sources) vancomycin; Translations: [VANCOMYCIN HCL] drug allergy 01-08-20 16 [facility] Work Phone: (20 sources) Cisapride; Translations: [cisapride monohydrate] Drug Allergy 05-20-19 [facility] (20 sources) Codeine; Translations: [CODEINE] Drug Allergy 06-23-19 Other: See Comments [facility] (20 sources) metroNIDAZOLE Drug Allergy 05-20-19 22 [facility] (20 sources) house dust allergenic extract Drug Allergy 12-01-[address] [facility] (6 sources) Cisapride; Translations: [PROPULSID] Drug Allergy 02-08-20 12 [facility] (6 sources) metroNIDAZOLE; Translations: [METRONIDAZOLE HCL] Drug Allergy 05-09-19 15 [facility] Work Phone: (20 sources) Chlorhexidine Drug Allergy 06-23-19 23 [facility] (1 source) Chlorhexidine Drug Allergy 06-16-[address] [facility] (1 source) Codeine Drug Allergy 06-16-[address] [facility] (1 source) house dust allergenic extract Drug Allergy 06-16-[address] [facility] (1 source) metroNIDAZOLE Drug Allergy 06-16-[address] [facility] Medications Current Medications Medication Drug Class(es) [...] October 23, 2022 11:00pm Start: 10-24-2022 [facility] xide-Simeth Active 5 ML PO 0000,0600,1200,1800 October 24, 2022 12:00am aluminum hydroxide 40 mg/ml / magnesium hydroxide 40 mg/ml / simethicone 4 mg/ml oral suspension (20 sources) Start: 10-24-2022 [facility] xide-Simeth 200-200-20 mg/5 mL suspension Active 5 mL PO 0000,0600,1200,1800 as needed for ANTACID October 24, 2022 12:00am Start: 10-24-2022 [facility] xide-Simeth Active 5 ML PO 0000,0600,1200,1800 October 24, 2022 12:00am Start: 01-11-2021 [facility] xide-Simeth Active 20 ML feeding tube 4 [...] 73 4.1 mcg intrath daily BACLOFEN SOLN [id number] Luann Elliott calcium carbonate 250 mg/ml oral [...] Cough Assist A ctive 1 NMA .Route .[facility] December 25, 2018 2:40pm assist in clearing secretions Inspiratory and Expiratory times of 20-40 seconds with a 1-2 second pause. Start: 12-25-2018 Cough Assist A ctive 1 NMA .Route .[facility] December 25, 2018 2:40pm Inspiratory and Expiratory times of 20-40 seconds with a 1-2 second pause. Start: 12-25-2018 Cough Assist A ctive 1 DOSE .Route .[facility] December 25, 2018 1:40pm Inspiratory and Expiratory times of 20-40 seconds with a 1-2 second pause. Start: 12-25-2018 Cough Assist A ctive 1 DOSE .Route .[facility] December 25, 2018 2:40pm Inspiratory and Expiratory [...] 20-40 seconds with a 1-2 second pause. [id number] 0.3 ml EPINEPHrine 1 mg/ml auto-injector (6 [...] by mouth three times daily METOCLOPRAMIDE HCL [id number] Maury Waite MD Start: 12-20-2015 End: 09-16-2018 [...] 3 September 30, 2023 11:26am ASTHMA nystatin [id number] unt/ml oral suspension (7 sources) Polyene Antifungal [...] TABS 60 mg. GT twice daily PHENOBARBITAL [id number] Luann Elliott Comment on above: Inject intravenously [...] tablet by mouth twice daily AMOXICILLIN-POT CLAVULANATE [id number] Maury Waite MD Start: 07-21-2016 End: 07-29-2016 [...] as direceted as needed SENNOSIDES-DOCUSATE SODIUM TABS [id number] Maury Waite MD SENNA-DOCUSATE S ODIUM TABS SENNOSIDES-DOCUSATE SODIUM TABS [id number] Rosa Taylor LPN doxazosin 2 mg oral [...] 4; 1 cap by mouth daily LACTOBACILLUS [id number] Luann Elliott lactobacillus acidophilus [id number] unt oral capsule (20 sources) Start: 09-20-19 [...] mouth daily as needed MAGNESIUM HYDROXIDE SUSP [id number] Maury Waite MD Start: 12-20-2015 End: 12-27-2018 [...] ml by mouth daily MAGNESIUM HYDROXIDE SUSP [id number] Luann Elliott Comment on above: Take by mouth as nee ded. NUTRITIONAL SUPPLEMENTS (8 sources) take 237 mL by mouth four times daily JEVITY 1 BENNY LIQD 237 ml by mouth 4 times daily NUTRITIONAL SUPPLEMENTS [id number] Luann Elliott ofloxacin 3 mg/ml ophthalmic solution (8 sources) Quinolone Antimicrobial Start: 01-10-20 16 End: 01-17-20 16 OFLOXACIN 0.3 % SOLN qid OFLOXACIN [id number] Trice Brenner MD ondansetron 4 mg disintegrating [...] three times a day prn ONDANSETRON HCL [id number] Rosa Taylor DEAF/HARD OF HEARING SPECIALIST pantoprazole 40 mg delayed release oral tablet [...] pneumonia weekly bmp and cbc. Fax to [phone] routine midline care plecanatide 3 mg oral tablet (20 sources) Start: 04-25-2020 End: 04-05-2024 Plecanatide 3 mg tablet Discontinued 3 mg GT 0830 November 27, 2020 3:23pm April 05, 2024 5:06pm BOWELS polyethylene glycol 3350 88534 mg powder for oral solution (20 sources) [...] 17g m q d POLYETHYLENE GLYCOL 3350 [id number] Rosa Taylor DEAF/HARD OF HEARING SPECIALIST potassium chloride 1.33 meq/ml oral solution (20 [...] on above: 15 mEq by PEG/JET ro nome once daily. rifAXIMin 550 mg oral tablet [...] GT daily as needed DOCUSATE SODIUM LIQD [id number] Maury Waite MD DOCUSATE SODIUM LIQD 200 mg GT daily DOCUSATE SODIUM LIQD [id number] Luann Ellitot simethicone 66.7 mg/ml oral suspension (20 sources) [...] 24, 2023 12:00am September 30, 2023 12:00am [place] 9th, 2024 12:04am vancomycin 125 mg oral [...] THEREAFTER End: 01-08-2016 VANCOMYCIN+SYRSPEND SF PH4 S SHELTER 125mg q 6 hrs x 10 days VANCOMYCIN HCL SUSP [id number] Rosa Taylor DEAF/HARD OF HEARING SPECIALIST Problems Active Problems Problem Classification Problem Date [...] (5 sources) Drug therapy finding; Translations: [Other snf (current) drug therapy] Onset: 5 02-17-2021 Episodic [...] Auto (Unsp spec) [#/Vol] 1.17 10*3/uL 0.83-4.51 [facility] Absolute neutrophil countOrd ered By: Chente Conn on 08-22-2024 Neutrophils (Bld) [#/Vol] 2.1 10*3/uL 2.0-7.7 [facility] Anion gap in Serum or Plasma Ordered By: Chente Conn on 08-22-2024 Anion gap [Moles/Vol] 9 mmol/L 5-15 [facility] Automated lymphocyte count a s percentage of total leukocytesOrdered By: Chente Conn on 08-22-2024 Lymphocytes/100 WBC Auto (Unsp spec) 31.3 % 19-41 [facility] BUN/creatinine ratioOrdered By: Chente Conn on 08-22-2024 Urea nitrogen/Creatinine [Mass ratio] 46.4 mg/mg High 10-20 [facility] Basophil percentageOrdered B y: Chente Conn on 08-22-2024 Basophils/100 WBC (Bld) 0.0 % 0-1 [facility] Carbon dioxide, total [Moles /volume] in Central venous bloodOrdered By: Chente Conn on 08-22-2024 CO2 [Moles/Vol] 28.9 mmol/L 21.0-32.0 [facility] Chloride assayOrdered By: Areli Conn on 08-22-2024 Chloride [Moles/Vol] 99 mmol/L 98-108 [facility] Eosinophil percentageOrdered By: Chente Conn on 08-22-2024 Eosinophils/100 WBC (Bld) 4.5 % 0-5 [facility] Erythrocyte distribution wid th ratioOrdered By: Chente Conn on 08-22-2024 Erythrocyte distribution width (RBC) [Ratio] 16.3 % High 11.6-14.6 [facility] Erythrocyte distribution wid th standard deviationOrdered By: Chente Conn on 08-22-2024 Erythrocyte distribution width (RBC) [Ratio] 49.5 fl High 35.1-43.9 [facility] Glomerular filtration rate ( GFR) estimation/1.73 sq m using serum, plasma, or whole bOrdered By: Chente Conn on 08-22-2024 GFR/1.73 sq M.predicted among non-blacks MDRD (S/P/Bld) [Vol rate/Area] 167 mL/min/{1.73_m2} >60 [facility] Comment on above: mL/min/1.73m2 CKD-EP I Creatinine Equation (2020) Hematocrit Auto (Bld) [Volum e fraction]Ordered By: Chente Conn on 08-22-2024 Hematocrit (Bld) [Volume fraction] 31.8 % Low 40-54 [facility] Hemoglobin measurementOrdere d By: Chente Conn on 08-22-2024 Hemoglobin (Bld) [Mass/Vol] 10.1 g/dL Low 13.0-16.5 [facility] Immature granulocytes/100 WB C Auto (Bld)Ordered By: Chente Conn on 08-22-2024 Immature granulocytes/100 WBC (Bld) 0.500 % 0.0-0.9 [facility] Comment on above: IG% - Immature Granu locytes (promyelocytes, myelocytes and metamyelocytes) > 1% indicates that a LEFT SHIFT is Present. MCV (mean corpuscular volume ) determinationOrdered By: Chente Conn on 08-22-2024 MCV (RBC) [Entitic vol] 85.3 fL 80-94 [facility] Mean corpuscular hemoglobin (MCH) determinationOrdered By: Chente Conn on 08-22-2024 MCH (RBC) [Entitic mass] 27.1 pg 27.0-32.0 [facility] Mean corpuscular hemoglobin concentration (MCHC) determinationOrdered By: Chente Conn on 08-22-2024 MCHC (RBC) [Mass/Vol] 31.8 g/dL Low 32-36 [facility] Mean platelet volume determi nationOrdered By: Chente Conn on 08-22-2024 Platelet mean volume (Bld) [Entitic vol] 10.8 fL 6.2-12.0 [facility] Monocyte percentageOrdered B y: Chente Conn on 08-22-2024 Monocytes/100 WBC (Bld) 8.8 % 0-10 [facility] Neutrophil percentageOrdered By: Chente Conn on 08-22-2024 Neutrophils/100 WBC (Bld) 54.9 % 47-70 [facility] Nucleated red blood cell per centageOrdered By: Chente Conn on 08-22-2024 Nucleated RBC/100 WBC (Bld) [Ratio] 0 % 0-5 [facility] Platelet countOrdered By: Areli Conn on 08-22-2024 Platelets (Bld) [#/Vol] 118 10*3/uL Low 150-450 [facility] Potassium measurement (mass/ volume)Ordered By: Chente Conn on 08-22-2024 Potassium (Unsp spec) [Mass/Vol] 4.1 mmol/L 3.3-5.1 [facility] RBC Auto (Bld) [#/Vol]Ordere d By: Chente Conn on 08-22-2024 RBC (Bld) [#/Vol] 3.73 10*6/uL Low 4.6-6.2 [facility] Serum creatinine measurement (mass/volume)Ordered By: Chente Conn on 08-22-2024 Creatinine [Mass/Vol] 0.22 mg/dL Low 0.70-1.20 [facility] Serum glucose measurement (m ass/volume)Ordered By: Chente Conn on 08-22-2024 Glucose [Mass/Vol] 90 mg/dL 70-99 [facility] Serum or plasma calcium jacinta urement (mass/volume)Ordered By: Chente Conn on 08-22-2024 Calcium [Mass/Vol] 8.7 mg/dL 7.6-11.0 [facility] Serum or plasma urea nitroge n measurement (mass/volume)Ordered By: Chente Conn on 08-22-2024 Urea nitrogen [Mass/Vol] 10 mg/dL 4-19 [facility] Sodium levelOrdered By: Chente Conn on 08-22-2024 Sodium [Moles/Vol] 137 mmol/L 133-145 [facility] White blood cell (WBC) count Ordered By: Chente Conn on 08-22-2024 WBC (Bld) [#/Vol] 3.7 10*3/uL Low 4.4-11.0 [facility] Laboratory - Chemistry and C hemistry - challengeOrdered By: Matteo Posadas on 07-27-2024 Testosterone [Mass/Vol] 15.60 ng/dL Low 300-890 [facility] Absolute lymphocyte countOrd ered By: Chente Conn on 07-25-2024 Lymphocytes Auto (Unsp spec) [#/Vol] 2.03 10*3/uL 0.83-4.51 [facility] Absolute neutrophil countOrd ered By: Chente Conn on 07-25-2024 Neutrophils (Bld) [#/Vol] 3.4 10*3/uL 2.0-7.7 [facility] Anion gap in Serum or Plasma Ordered By: Chente Conn on 07-25-2024 Anion gap [Moles/Vol] 14 mmol/L 5-15 [facility] Automated lymphocyte count a s percentage of total leukocytesOrdered By: Chente Conn on 07-25-2024 Lymphocytes/100 WBC Auto (Unsp spec) 31.8 % 19-41 [facility] BUN/creatinine ratioOrdered By: Chente Conn on 07-25-2024 Urea nitrogen/Creatinine [Mass ratio] 24.1 mg/mg High 10-20 [facility] Basophil percentageOrdered B y: Chente Conn on 07-25-2024 Basophils/100 WBC (Bld) 0.2 % 0-1 [facility] Carbon dioxide, total [Moles /volume] in Central venous bloodOrdered By: Chente Conn on 07-25-2024 CO2 [Moles/Vol] 25.0 mmol/L 21.0-32.0 [facility] Chloride assayOrdered By: Areli Conn on 07-25-2024 Chloride [Moles/Vol] 99 mmol/L 98-108 [facility] Eosinophil percentageOrdered By: Chente Conn on 07-25-2024 Eosinophils/100 WBC (Bld) 3.6 % 0-5 [facility] Erythrocyte distribution wid th ratioOrdered By: Chente Conn on 07-25-2024 Erythrocyte distribution width (RBC) [Ratio] 15.6 % High 11.6-14.6 [facility] Erythrocyte distribution wid th standard deviationOrdered By: Chente Conn on 07-25-2024 Erythrocyte distribution width (RBC) [Ratio] 47.2 fl High 35.1-43.9 [facility] Glomerular filtration rate ( GFR) estimation/1.73 sq m using serum, plasma, or whole bOrdered By: Chente Conn on 07-25-2024 GFR/1.73 sq M.predicted among non-blacks MDRD (S/P/Bld) [Vol rate/Area] 148 mL/min/{1.73_m2} >60 [facility] Comment on above: mL/min/1.73m2 CKD-EP I Creatinine Equation (2020) Hematocrit Auto (Bld) [Volum e fraction]Ordered By: Chente Conn on 07-25-2024 Hematocrit (Bld) [Volume fraction] 30.1 % Low 40-54 [facility] Hemoglobin measurementOrdere d By: Chente Conn on 07-25-2024 Hemoglobin (Bld) [Mass/Vol] 9.8 g/dL Low 13.0-16.5 [facility] Immature granulocytes/100 WB C Auto (Bld)Ordered By: Chente Conn on 07-25-2024 Immature granulocytes/100 WBC (Bld) 0.300 % 0.0-0.9 [facility] Comment on above: IG% - Immature Granu locytes (promyelocytes, myelocytes and metamyelocytes) > 1% indicates that a LEFT SHIFT is Present. MCV (mean corpuscular volume ) determinationOrdered By: Chente Conn on 07-25-2024 MCV (RBC) [Entitic vol] 84.1 fL 80-94 [facility] Mean corpuscular hemoglobin (MCH) determinationOrdered By: Chente Cnon on 07-25-2024 MCH (RBC) [Entitic mass] 27.4 pg 27.0-32.0 [facility] Mean corpuscular hemoglobin concentration (MCHC) determinationOrdered By: Chente Conn on 07-25-2024 MCHC (RBC) [Mass/Vol] 32.6 g/dL 32-36 [facility] Mean platelet volume determi nationOrdered By: Chente Conn on 07-25-2024 Platelet mean volume (Bld) [Entitic vol] 10.2 fL 6.2-12.0 [facility] Monocyte percentageOrdered B y: Chente Conn on 07-25-2024 Monocytes/100 WBC (Bld) 11.6 % High 0-10 [facility] Neutrophil percentageOrdered By: Chente Conn on 07-25-2024 Neutrophils/100 WBC (Bld) 52.5 % 47-70 [facility] Nucleated red blood cell per centageOrdered By: Chente Conn on 07-25-2024 Nucleated RBC/100 WBC (Bld) [Ratio] 0 % 0-5 [facility] Platelet countOrdered By: Areli Conn on 07-25-2024 Platelets (Bld) [#/Vol] 166 10*3/uL 150-450 [facility] Potassium measurement (mass/ volume)Ordered By: Chente Conn on 07-25-2024 Potassium (Unsp spec) [Mass/Vol] 3.7 mmol/L 3.3-5.1 [facility] RBC Auto (Bld) [#/Vol]Ordere d By: Chente Conn on 07-25-2024 RBC (Bld) [#/Vol] 3.58 10*6/uL Low 4.6-6.2 [facility] Serum creatinine measurement (mass/volume)Ordered By: Chente Conn on 07-25-2024 Creatinine [Mass/Vol] 0.33 mg/dL Low 0.70-1.20 [facility] Serum glucose measurement (m ass/volume)Ordered By: Chente Conn on 07-25-2024 Glucose [Mass/Vol] 113 mg/dL High 70-99 [facility] Serum or plasma calcium jacinta urement (mass/volume)Ordered By: Chente Conn on 07-25-2024 Calcium [Mass/Vol] 8.8 mg/dL 7.6-11.0 [facility] Serum or plasma urea nitroge n measurement (mass/volume)Ordered By: Chente Conn on 07-25-2024 Urea nitrogen [Mass/Vol] 8 mg/dL 4-19 [facility] Sodium levelOrdered By: Chente Conn on 07-25-2024 Sodium [Moles/Vol] 137 mmol/L 133-145 [facility] White blood cell (WBC) count Ordered By: Chente Conn on 07-25-2024 WBC (Bld) [#/Vol] 6.4 10*3/uL 4.4-11.0 [facility] Free testosterone percentage Ordered By: Matteo Posadas on 07-18-2024 Testosterone Free/Testosterone.total [Mass fraction] 5.01 % High 1.50-4.20 [facility] Insulin-like growth factor ( IGF) measurementOrdered By: Matteo Posadas on 07-18-2024 Insulin-like growth factor [Moles/Vol] 109 ng/mL 84-270 [facility] Comment on above: Performed at: [facility] [employer] [id number] Director: Berry Gonzalez PhD, Phone: [phone] at: [facility] [id number] Director: Nicholas Ryan MD, Phone: [phone] Serum or plasma free testost erone measurement (mass/volume)Ordered By: Matteo Posadas on 07-18-2024 Testosterone Free [Mass/Vol] 0.50 ng/dL Low 5.00-21.00 [facility] Testosterone, totalOrdered B y: Matteo Posadas on 07-18-2024 Testosterone [Mass/Vol] 10 ng/dL Low 264-916 [facility] Comment on above: Adult male reference interval is based on a population ofhealthy nonobese males (BMI <30) between 19 and 39 yearsold. Marlen et.al. JCEM 2017,102;[id number]. PMID:[id number]. Absolute lymphocyte countOrd ered By: Chente Conn on 06-26-2024 Lymphocytes Auto (Unsp spec) [#/Vol] 2.13 10*3/uL 0.83-4.51 [facility] Absolute neutrophil countOrd ered By: Chente Conn on 06-26-2024 Neutrophils (Bld) [#/Vol] 2.7 10*3/uL 2.0-7.7 [facility] Anion gap in Serum or Plasma Ordered By: Chente Conn on 06-26-2024 Anion gap [Moles/Vol] 10 mmol/L 5-15 [facility] Automated lymphocyte count a s percentage of total leukocytesOrdered By: Chente Conn on 06-26-2024 Lymphocytes/100 WBC Auto (Unsp spec) 36.8 % 19-41 [facility] BUN/creatinine ratioOrdered By: Chente Conn on 06-26-2024 Urea nitrogen/Creatinine [Mass ratio] 40.8 mg/mg High 10-20 [facility] Basophil percentageOrdered B y: Chente Conn on 06-26-2024 Basophils/100 WBC (Bld) 0.3 % 0-1 [facility] Bilirubin, totalOrdered By: Chente Conn on 06-26-2024 Bilirubin [Mass/Vol] 0.16 mg/dL 0.00-1.30 [facility] Carbon dioxide, total [Moles /volume] in Central venous bloodOrdered By: Chente Conn on 06-26-2024 CO2 [Moles/Vol] 27.6 mmol/L 21.0-32.0 [facility] Chloride assayOrdered By: Areli Conn on 06-26-2024 Chloride [Moles/Vol] 98 mmol/L 98-108 [facility] Eosinophil percentageOrdered By: Chente Conn on 06-26-2024 Eosinophils/100 WBC (Bld) 6.6 % High 0-5 [facility] Erythrocyte distribution wid th ratioOrdered By: Chente Conn on 06-26-2024 Erythrocyte distribution width (RBC) [Ratio] 15.4 % High 11.6-14.6 [facility] Erythrocyte distribution wid th standard deviationOrdered By: Chente Conn on 06-26-2024 Erythrocyte distribution width (RBC) [Ratio] 46.5 fl High 35.1-43.9 [facility] Glomerular filtration rate ( GFR) estimation/1.73 sq m using serum, plasma, or whole bOrdered By: Chente Conn on 06-26-2024 GFR/1.73 sq M.predicted among non-blacks MDRD (S/P/Bld) [Vol rate/Area] 157 mL/min/{1.73_m2} >60 [facility] Comment on above: mL/min/1.73m2 CKD-EP I Creatinine Equation (2020) Hematocrit Auto (Bld) [Volum e fraction]Ordered By: Chente Conn on 06-26-2024 Hematocrit (Bld) [Volume fraction] 32.2 % Low 40-54 [facility] Hemoglobin measurementOrdere d By: Chente Conn on 06-26-2024 Hemoglobin (Bld) [Mass/Vol] 10.3 g/dL Low 13.0-16.5 [facility] Immature granulocytes/100 WB C Auto (Bld)Ordered By: Chente Conn on 06-26-2024 Immature granulocytes/100 WBC (Bld) 0.300 % 0.0-0.9 [facility] Comment on above: IG% - Immature Granu locytes (promyelocytes, myelocytes and metamyelocytes) > 1% indicates that a LEFT SHIFT is Present. Iron measurement (mass/mass) Ordered By: Chente Conn on 06-26-2024 Iron (Unsp spec) [Mass/Mass] 30 ug/dL Low 65-175 [facility] LH ser/plasOrdered By: Matteo Posadas on 06-26-2024 Lutropin Qn 40.9 m[IU]/mL [facility] Comment on above: FEMALE:Follicular: 1 .9-12.5 mIU/mLMidcycle: 8.7-76.3 mIU/mLLuteal: 0.5-16.9 mIU/mLPost Menopause: 15.9-54.0 mIU/mLMALE:20-70 Years: 1.5-9.3 mIU/mL>70 Years: 3.1-34.6 mIU/mL Laboratory - Chemistry and C hemistry - challengeOrdered By: Chente Conn on 06-26-2024 AST [Catalytic activity/Vol] 12 U/L <38 [facility] MCV (mean corpuscular volume ) determinationOrdered By: Chente Conn on 06-26-2024 MCV (RBC) [Entitic vol] 84.3 fL 80-94 [facility] Mean corpuscular hemoglobin (MCH) determinationOrdered By: Chente Conn on 06-26-2024 MCH (RBC) [Entitic mass] 27.0 pg 27.0-32.0 [facility] Mean corpuscular hemoglobin concentration (MCHC) determinationOrdered By: Chente Conn on 06-26-2024 MCHC (RBC) [Mass/Vol] 32.0 g/dL 32-36 [facility] Mean platelet volume determi nationOrdered By: Chente Conn on 06-26-2024 Platelet mean volume (Bld) [Entitic vol] 10.0 fL 6.2-12.0 [facility] Monocyte percentageOrdered B y: Chente Conn on 06-26-2024 Monocytes/100 WBC (Bld) 9.2 % 0-10 [facility] Neutrophil percentageOrdered By: Chente Conn on 06-26-2024 Neutrophils/100 WBC (Bld) 46.8 % Low 47-70 [facility] No Panel InformationOrdered By: Chente Conn on 06-26-2024 Unsaturated Iron Binding Capacity 216 ug/dL Low 228-428 [facility] Nucleated red blood cell per centageOrdered By: Chente Conn on 06-26-2024 Nucleated RBC/100 WBC (Bld) [Ratio] 0 % 0-5 [facility] Platelet countOrdered By: Areli Conn on 06-26-2024 Platelets (Bld) [#/Vol] 204 10*3/uL 150-450 [facility] Potassium measurement (mass/ volume)Ordered By: Chente Conn on 06-26-2024 Potassium (Unsp spec) [Mass/Vol] 3.8 mmol/L 3.3-5.1 [facility] RBC Auto (Bld) [#/Vol]Ordere d By: Chente Conn on 06-26-2024 RBC (Bld) [#/Vol] 3.82 10*6/uL Low 4.6-6.2 [facility] Serum creatinine measurement (mass/volume)Ordered By: Chente Conn on 06-26-2024 Creatinine [Mass/Vol] 0.27 mg/dL Low 0.70-1.20 [facility] Serum globulin measurementOr dered By: Chente Conn on 06-26-2024 Globulin (S) [Mass/Vol] 4.2 g/dL 2.2-4.2 [facility] Serum glucose measurement (m ass/volume)Ordered By: Chente Conn on 06-26-2024 Glucose [Mass/Vol] 80 mg/dL 70-99 [facility] Serum or plasma alanine salas otransferase (ALT) measurementOrdered By: Chente Conn on 06-26-2024 ALT [Catalytic activity/Vol] 8 U/L <47 [facility] Serum or plasma albumin jacinta urement (mass/volume)Ordered By: Chente Conn on 06-26-2024 Albumin [Mass/Vol] 3.6 g/dL 3.5-5.0 [facility] Serum or plasma albumin/glob ulin mass ratioOrdered By: Chente Conn on 06-26-2024 Albumin/Globulin [Mass ratio] 0.8 {ratio} Low 0.9-2.4 [facility] Serum or plasma alkaline robbi sphatase measurementOrdered By: Chente Conn on 06-26-2024 ALP [Catalytic activity/Vol] 166 U/L High 40-129 [facility] Serum or plasma calcium jacinta urement (mass/volume)Ordered By: Chente Conn on 06-26-2024 Calcium [Mass/Vol] 8.9 mg/dL 7.6-11.0 [facility] Serum or plasma ferritin missy surement (mass/volume)Ordered By: Chente Conn on 06-26-2024 Ferritin [Mass/Vol] 39 ng/mL 37-417 [facility] Serum or plasma iron saturat ion measurement (mass fraction)Ordered By: Chente Conn on 06-26-2024 Iron saturation [Mass fraction] 12.2 % 9-55 [facility] Comment on above: Previous reported re sult: 12.0 %Edited by: KARTHIKEYAN on 06/26/24:9090 AMENDED REPORT 06/26/24 8224 IRON SATURATION previously reported as: 12.0 % Serum or plasma prolactin me asurement (mass/volume)Ordered By: Matteo Posadas on 06-26-2024 Prolactin [Mass/Vol] See comment [facility] Comment on above: TEST RESULTS LIMITSP rolactin 31.5 High ng/mL 3.9-22.7 TESTING PERFORMED AT [facility]. ORIGINAL REPORT ON FILE IN LAB CONTAINS ADDITIONAL TEST SITE INFORMATION. Serum or plasma urea nitroge n measurement (mass/volume)Ordered By: Chente Conn on 06-26-2024 Urea nitrogen [Mass/Vol] 11 mg/dL 4-19 [facility] Sodium levelOrdered By: Chente Conn on 06-26-2024 Sodium [Moles/Vol] 136 mmol/L 133-145 [facility] Total proteinOrdered By: Darwin Conn on 06-26-2024 Protein [Mass/Vol] 7.8 g/dL 5.9-8.4 [facility] White blood cell (WBC) count Ordered By: Chente Conn on 06-26-2024 WBC (Bld) [#/Vol] 5.8 10*3/uL 4.4-11.0 [facility] Absolute lymphocyte countOrd ered By: Chente Conn on 05-29-2024 Lymphocytes Auto (Unsp spec) [#/Vol] 2.21 10*3/uL 0.83-4.51 [facility] Absolute neutrophil countOrd ered By: Chente Conn on 05-29-2024 Neutrophils (Bld) [#/Vol] 3.5 10*3/uL 2.0-7.7 [facility] Anion gap in Serum or Plasma Ordered By: Chente Conn on 05-29-2024 Anion gap [Moles/Vol] 12 mmol/L 5-15 [facility] Automated lymphocyte count a s percentage of total leukocytesOrdered By: Chente Conn on 05-29-2024 Lymphocytes/100 WBC Auto (Unsp spec) 32.7 % 19-41 [facility] BUN/creatinine ratioOrdered By: Chente Conn on 05-29-2024 Urea nitrogen/Creatinine [Mass ratio] 37.5 mg/mg High 10-20 [facility] Basophil percentageOrdered B y: Chente Conn on 05-29-2024 Basophils/100 WBC (Bld) 0.3 % 0-1 [facility] Bilirubin, totalOrdered By: Chente Conn on 05-29-2024 Bilirubin [Mass/Vol] mg/dL 0.00-1.30 [facility] Carbon dioxide, total [Moles /volume] in Central venous bloodOrdered By: Chente Conn on 05-29-2024 CO2 [Moles/Vol] 25.6 mmol/L 21.0-32.0 [facility] Chloride assayOrdered By: Areli Conn on 05-29-2024 Chloride [Moles/Vol] 100 mmol/L 98-108 [facility] Eosinophil percentageOrdered By: Chente Conn on 05-29-2024 Eosinophils/100 WBC (Bld) 5.2 % High 0-5 [facility] Erythrocyte distribution wid th ratioOrdered By: Chente Conn on 05-29-2024 Erythrocyte distribution width (RBC) [Ratio] 16.6 % High 11.6-14.6 [facility] Erythrocyte distribution wid th standard deviationOrdered By: Chente Conn on 05-29-2024 Erythrocyte distribution width (RBC) [Ratio] 51.6 fl High 35.1-43.9 [facility] Glomerular filtration rate ( GFR) estimation/1.73 sq m using serum, plasma, or whole bOrdered By: Chente Conn on 05-29-2024 GFR/1.73 sq M.predicted among non-blacks MDRD (S/P/Bld) [Vol rate/Area] 147 mL/min/{1.73_m2} >60 [facility] Comment on above: mL/min/1.73m2 CKD-EP I Creatinine Equation (2020) Hematocrit Auto (Bld) [Volum e fraction]Ordered By: Chente Conn on 05-29-2024 Hematocrit (Bld) [Volume fraction] 31.8 % Low 40-54 [facility] Hemoglobin measurementOrdere d By: Chente Conn on 05-29-2024 Hemoglobin (Bld) [Mass/Vol] 10.0 g/dL Low 13.0-16.5 [facility] Immature granulocytes/100 WB C Auto (Bld)Ordered By: Chente Conn on 05-29-2024 Immature granulocytes/100 WBC (Bld) 0.300 % 0.0-0.9 [facility] Comment on above: IG% - Immature Granu locytes (promyelocytes, myelocytes and metamyelocytes) > 1% indicates that a LEFT SHIFT is Present. Laboratory - Chemistry and C hemistry - challengeOrdered By: Chente Conn on 05-29-2024 AST [Catalytic activity/Vol] 14 U/L <38 [facility] MCV (mean corpuscular volume ) determinationOrdered By: Chente Conn on 05-29-2024 MCV (RBC) [Entitic vol] 84.8 fL 80-94 [facility] Mean corpuscular hemoglobin (MCH) determinationOrdered By: Chente Conn on 05-29-2024 MCH (RBC) [Entitic mass] 26.7 pg Low 27.0-32.0 [facility] Mean corpuscular hemoglobin concentration (MCHC) determinationOrdered By: Chente Conn on 05-29-2024 MCHC (RBC) [Mass/Vol] 31.4 g/dL Low 32-36 [facility] Mean platelet volume determi nationOrdered By: Chente Conn on 05-29-2024 Platelet mean volume (Bld) [Entitic vol] 10.1 fL 6.2-12.0 [facility] Monocyte percentageOrdered B y: Chente Conn on 05-29-2024 Monocytes/100 WBC (Bld) 9.6 % 0-10 [facility] Neutrophil percentageOrdered By: Chente Conn on 05-29-2024 Neutrophils/100 WBC (Bld) 51.9 % 47-70 [facility] Nucleated red blood cell per centageOrdered By: Chente Conn on 05-29-2024 Nucleated RBC/100 WBC (Bld) [Ratio] 0 % 0-5 [facility] Platelet countOrdered By: Areli Conn on 05-29-2024 Platelets (Bld) [#/Vol] 182 10*3/uL 150-450 [facility] Potassium measurement (mass/ volume)Ordered By: Chente Conn on 05-29-2024 Potassium (Unsp spec) [Mass/Vol] 3.7 mmol/L 3.3-5.1 [facility] RBC Auto (Bld) [#/Vol]Ordere d By: Chente Conn on 05-29-2024 RBC (Bld) [#/Vol] 3.75 10*6/uL Low 4.6-6.2 [facility] Serum creatinine measurement (mass/volume)Ordered By: Chente Conn on 05-29-2024 Creatinine [Mass/Vol] 0.34 mg/dL Low 0.70-1.20 [facility] Serum globulin measurementOr dered By: Chente Conn on 05-29-2024 Globulin (S) [Mass/Vol] 3.7 g/dL 2.2-4.2 [facility] Serum glucose measurement (m ass/volume)Ordered By: Chente Conn on 05-29-2024 Glucose [Mass/Vol] 107 mg/dL High 70-99 [facility] Serum or plasma alanine salas otransferase (ALT) measurementOrdered By: Chente Conn on 05-29-2024 ALT [Catalytic activity/Vol] 11 U/L <47 [facility] Serum or plasma albumin jacinta urement (mass/volume)Ordered By: Chente Conn on 05-29-2024 Albumin [Mass/Vol] 3.5 g/dL 3.5-5.0 [facility] Serum or plasma albumin/glob ulin mass ratioOrdered By: Chente Conn on 05-29-2024 Albumin/Globulin [Mass ratio] 0.9 {ratio} 0.9-2.4 [facility] Serum or plasma alkaline robbi sphatase measurementOrdered By: Chente Conn on 05-29-2024 ALP [Catalytic activity/Vol] 131 U/L High 40-129 [facility] Serum or plasma calcium jacinta urement (mass/volume)Ordered By: Chente Conn on 05-29-2024 Calcium [Mass/Vol] 8.8 mg/dL 7.6-11.0 [facility] Serum or plasma urea nitroge n measurement (mass/volume)Ordered By: Chente Conn on 05-29-2024 Urea nitrogen [Mass/Vol] 13 mg/dL 4-19 [facility] Sodium levelOrdered By: Chente Conn on 05-29-2024 Sodium [Moles/Vol] 137 mmol/L 133-145 [facility] Total proteinOrdered By: Darwin Conn on 05-29-2024 Protein [Mass/Vol] 7.1 g/dL 5.9-8.4 [facility] White blood cell (WBC) count Ordered By: Chente Conn on 05-29-2024 WBC (Bld) [#/Vol] 6.8 10*3/uL 4.4-11.0 [facility] Gram stainOrdered By: Johnny Kee on 05-09-2024 Microscopic observation Gram stain Nom (Unsp spec) [facility] Microbial respiratory cultur eOrdered By: Valarie Kee on 05-09-2024 Microorganism identified Cx Nom (Unsp spec) Pseudomonas aeruginosa Abnormal [facility] Microorganism identified Cx Nom (Unsp spec) Pseudomonas aeruginosa#[address] [facility] Microorganism identified Cx Nom (Unsp spec) Proteus mirabilis Abnormal [facility] Microorganism identified Cx Nom (Unsp spec)Ordered By: Valarie Kee on 05-09-2024 Respiratory Culture Pseudomonas aeruginosa Abnormal [facility] Respiratory Culture Pseudomonas aeruginosa#[address] [facility] Respiratory Culture Proteus mirabilis Abnormal [facility] Absolute lymphocyte countOrd ered By: Chente Conn on 05-01-2024 Lymphocytes Auto (Unsp spec) [#/Vol] 2.20 10*3/uL 0.83-4.51 [facility] Absolute neutrophil countOrd ered By: Chente Conn on 05-01-2024 Neutrophils (Bld) [#/Vol] 3.1 10*3/uL 2.0-7.7 [facility] Anion gap in Serum or Plasma Ordered By: Chente Conn on 05-01-2024 Anion gap [Moles/Vol] 10 mmol/L 5-15 [facility] Automated lymphocyte count a s percentage of total leukocytesOrdered By: Chente Conn on 05-01-2024 Lymphocytes/100 WBC Auto (Unsp spec) 35.4 % - [facility] BUN/creatinine ratioOrdered By: Chente Conn on 05-01-2024 Urea nitrogen/Creatinine [Mass ratio] 40.6 mg/mg High 10-20 [facility] Basophil percentageOrdered B y: Chente Conn on 05-01-2024 Basophils/100 WBC (Bld) 0.2 % 0-1 [facility] Carbon dioxide, total [Moles /volume] in Central venous bloodOrdered By: Chente Conn on 05-01-2024 CO2 [Moles/Vol] 27.4 mmol/L 21.0-32.0 [facility] Chloride assayOrdered By: Areli Conn on 05-01-2024 Chloride [Moles/Vol] 98 mmol/L 98-108 [facility] Eosinophil percentageOrdered By: Chente Conn on 05-01-2024 Eosinophils/100 WBC (Bld) 4.7 % 0-5 [facility] Erythrocyte distribution wid th ratioOrdered By: Chente Conn on 05-01-2024 Erythrocyte distribution width (RBC) [Ratio] 16.6 % High 11.6-14.6 [facility] Erythrocyte distribution wid th standard deviationOrdered By: Chente Conn on 05-01-2024 Erythrocyte distribution width (RBC) [Entitic vol] 50.4 fL High 35.1-43.9 [facility] Erythrocyte distribution width (RBC) [Ratio] 50.4 fl High 35.1-43.9 [facility] GFR/1.73 sq M.predicted joey g non-blacks MDRD (S/P/Bld) [Vol rate/Area]Ordered By: Chente Conn on 05-01-2024 Estimated GFR (MDRD) Non-Af Amer [address] >60 [facility] Comment on above: mL/min/1.73m2 CKD-EP I Creatinine Equation (2020) Glomerular filtration rate ( GFR) estimation/1.73 sq m using serum, plasma, or whole bOrdered By: Chente Conn on 05-01-2024 GFR/1.73 sq M.predicted among non-blacks MDRD (S/P/Bld) [Vol rate/Area] 154 mL/min/{1.73_m2} >60 [facility] Comment on above: mL/min/1.73m2 CKD-EP I Creatinine Equation (2020) Hematocrit Auto (Bld) [Volum e fraction]Ordered By: Chente Conn on 05-01-2024 Hematocrit (Bld) [Volume fraction] 33.5 % Low 40-54 [facility] Hemoglobin measurementOrdere d By: Chente Conn on 05-01-2024 Hemoglobin (Bld) [Mass/Vol] 10.5 g/dL Low 13.0-16.5 [facility] Immature granulocytes/100 WB C Auto (Bld)Ordered By: Chente Conn on 05-01-2024 Immature granulocytes/100 WBC (Bld) 0.200 % 0.0-0.9 [facility] Comment on above: IG% - Immature Granu locytes (promyelocytes, myelocytes and metamyelocytes) > 1% indicates that a LEFT SHIFT is Present. Lymphocytes Auto (Unsp spec) [#/Vol]Ordered By: Chente Conn on 05-01-2024 Lymphocytes (Bld) [#/Vol] 2.20 10*3/uL 0.83-4.[address] [facility] Lymphocytes/100 WBC Auto (Un sp spec)Ordered By: Chente Conn on 05-01-2024 Lymphocytes/100 WBC (Bld) 35.4 % 19-41 [facility] MCV (mean corpuscular volume ) determinationOrdered By: Chente Conn on 05-01-2024 MCV (RBC) [Entitic vol] 82.7 fL 80-94 [facility] Mean corpuscular hemoglobin (MCH) determinationOrdered By: Chente Conn on 05-01-2024 MCH (RBC) [Entitic mass] 25.9 pg Low 27.0-32.0 [facility] Mean corpuscular hemoglobin concentration (MCHC) determinationOrdered By: Chente Conn on 05-01-2024 MCHC (RBC) [Mass/Vol] 31.3 g/dL Low 32-36 [facility] Mean platelet volume determi nationOrdered By: Chente Conn on 05-01-2024 Platelet mean volume (Bld) [Entitic vol] 10.5 fL 6.2-12.0 [facility] Monocyte percentageOrdered B y: Chente Conn on 05-01-2024 Monocytes/100 WBC (Bld) 10.3 % High 0-10 [facility] Neutrophil percentageOrdered By: Chente Conn on 05-01-2024 Neutrophils/100 WBC (Bld) 49.2 % 47-70 [facility] Nucleated red blood cell per centageOrdered By: Chente Conn on 03-10-2025 Nucleated RBC/100 WBC (Bld) [Ratio] 0 % 0-5 [facility] Platelet countOrdered By: Areli Conn on 05-01-2024 Platelets (Bld) [#/Vol] 209 10*3/uL 150-450 [facility] Potassium (Unsp spec) [Mass/ Vol]Ordered By: Chente Conn on 05-01-2024 Potassium [Moles/Vol] 4.3 mmol/L 3.3-5.1 [facility] Potassium measurement (mass/ volume)Ordered By: Chente Conn on 05-01-2024 Potassium (Unsp spec) [Mass/Vol] 4.3 mmol/L 3.3-5.1 [facility] RBC Auto (Bld) [#/Vol]Ordere d By: Chente Conn on 05-01-2024 RBC (Bld) [#/Vol] 4.05 10*6/uL Low 4.6-6.2 [facility] Serum creatinine measurement (mass/volume)Ordered By: Chente Conn on 05-01-2024 Creatinine [Mass/Vol] 0.29 mg/dL Low 0.70-1.20 [facility] Serum glucose measurement (m ass/volume)Ordered By: Chente Conn on 05-01-2024 Glucose [Mass/Vol] 82 mg/dL 70-99 [facility] Serum or plasma calcium jacinta urement (mass/volume)Ordered By: Chente Conn on 05-01-2024 Calcium [Mass/Vol] 8.8 mg/dL 7.6-11.0 [facility] Serum or plasma urea nitroge n measurement (mass/volume)Ordered By: Chente Conn on 05-01-2024 Urea nitrogen [Mass/Vol] 12 mg/dL 4-19 [facility] Sodium levelOrdered By: Chente Conn on 05-01-2024 Sodium [Moles/Vol] 135 mmol/L 133-145 [facility] White blood cell (WBC) count Ordered By: Chente Conn on 05-01-2024 WBC (Bld) [#/Vol] 6.2 10*3/uL 4.4-11.0 [facility] Absolute lymphocyte countOrd ered By: Chente Conn on 04-03-2024 Lymphocytes Auto (Unsp spec) [#/Vol] 2.12 10*3/uL 0.83-4.51 [facility] Absolute neutrophil countOrd ered By: Chente Conn on 04-03-2024 Neutrophils (Bld) [#/Vol] 2.2 10*3/uL 2.0-7.7 [facility] Automated lymphocyte count a s percentage of total leukocytesOrdered By: Chente Conn on 04-03-2024 Lymphocytes/100 WBC Auto (Unsp spec) 41.2 % High 19-41 [facility] Basophil percentageOrdered B y: Chente Conn on 04-03-2024 Basophils/100 WBC (Bld) 0.2 % 0-1 [facility] Blood urea nitrogen (BUN)/cr eatinine ratioOrdered By: Chente Conn on 04-03-2024 Urea nitrogen/Creatinine [Mass ratio] 52.6 mg/mg High 10-20 [facility] Carbon dioxide measurementOr dered By: Chente Conn on 04-03-2024 CO2 [Moles/Vol] 32.0 mmol/L 21.0-32.0 [facility] Chloride measurementOrdered By: Chente Conn on 04-03-2024 Chloride [Moles/Vol] 102 mmol/L 98-107 [facility] Eosinophil percentageOrdered By: Chente Conn on 04-03-2024 Eosinophils/100 WBC (Bld) 4.9 % 0-5 [facility] Erythrocyte distribution wid th ratioOrdered By: Chente Conn on 04-03-2024 Erythrocyte distribution width (RBC) [Ratio] 15.6 % High 11.6-14.6 [facility] Erythrocyte distribution wid th standard deviationOrdered By: Chenet Conn on 04-03-2024 Erythrocyte distribution width (RBC) [Entitic vol] 46.3 fL High 35.1-43.9 [facility] Erythrocyte distribution width (RBC) [Ratio] 46.3 fl High 35.1-43.9 [facility] Estimated glomerular filtrat ion rate (GFR) AmericanOrdered By: Chente Conn on 04-03-2024 Estimated GFR (MDRD) Amer 641 mL/min >60 [facility] Comment on above: GFR Calc Glomerular filtration rate ( GFR) estimationOrdered By: Chente Conn on 04-03-2024 Estimated GFR (MDRD) Non-Af Amer 530 mL/min >60 [facility] Comment on above: Non- GFR Calc GFR/1.73 sq M.predicted among non-blacks MDRD (S/P/Bld) [Vol rate/Area] 530 mL/min/{1.73_m2} >60 [facility] Comment on above: Non- GFR Calc Glucose measurementOrdered B y: Chente Conn on 04-03-2024 Glucose [Mass/Vol] 87 mg/dL 74-106 [facility] Hematocrit Auto (Bld) [Volum e fraction]Ordered By: Chente Conn on 04-03-2024 Hematocrit (Bld) [Volume fraction] 30.9 % Low 40-54 [facility] Hemoglobin measurementOrdere d By: Chente Conn on 04-03-2024 Hemoglobin (Bld) [Mass/Vol] 9.8 g/dL Low 13.0-16.5 [facility] Immature granulocytes/100 WB C Auto (Bld)Ordered By: Chente Conn on 04-03-2024 Immature granulocytes/100 WBC (Bld) 0.200 % 0.0-0.9 [facility] Comment on above: IG% - Immature Granu locytes (promyelocytes, myelocytes and metamyelocytes) > 1% indicates that a LEFT SHIFT is Present. Lymphocytes Auto (Unsp spec) [#/Vol]Ordered By: Chente Conn on 04-03-2024 Lymphocytes (Bld) [#/Vol] 2.12 10*3/uL 0.83-4.[address] [facility] Lymphocytes/100 WBC Auto (Un sp spec)Ordered By: Chente Conn on 04-03-2024 Lymphocytes/100 WBC (Bld) 41.2 % High 19-41 [facility] MCV (mean corpuscular volume ) determinationOrdered By: Chente Conn on 04-03-2024 MCV (RBC) [Entitic vol] 82.8 fL 80-94 [facility] Mean corpuscular hemoglobin (MCH) determinationOrdered By: Chente oCnn on 04-03-2024 MCH (RBC) [Entitic mass] 26.3 pg Low 27.0-32.0 [facility] Mean corpuscular hemoglobin concentration (MCHC) determinationOrdered By: Chente Conn on 04-03-2024 MCHC (RBC) [Mass/Vol] 31.7 g/dL Low 32-36 [facility] Mean platelet volume determi nationOrdered By: Chente Conn on 04-03-2024 Platelet mean volume (Bld) [Entitic vol] 9.8 fL 6.2-12.0 [facility] Monocyte percentageOrdered B y: Chente Conn on 04-03-2024 Monocytes/100 WBC (Bld) 10.9 % High 0-10 [facility] Neutrophil percentageOrdered By: Chente Conn on 04-03-2024 Neutrophils/100 WBC (Bld) 42.6 % Low 47-70 [facility] Nucleated red blood cell per centageOrdered By: Chente Conn on 04-03-2024 Nucleated RBC/100 WBC (Bld) [Ratio] 0 % 0-5 [facility] Platelet countOrdered By: Areli Conn on 04-03-2024 Platelets (Bld) [#/Vol] 170 10*3/uL 150-450 [facility] Potassium measurementOrdered By: Chente Conn on 04-03-2024 Potassium [Moles/Vol] 3.8 mmol/L 3.5-5.1 [facility] RBC Auto (Bld) [#/Vol]Ordere d By: Chente Conn on 04-03-2024 RBC (Bld) [#/Vol] 3.73 10*6/uL Low 4.6-6.2 [facility] Serum anion gap measurementO rdered By: Chente Conn on 04-03-2024 Anion gap [Moles/Vol] 5 mmol/L 5-15 [facility] Serum or plasma calcium jacinta urement (mass/volume)Ordered By: Chente Conn on 04-03-2024 Calcium [Mass/Vol] 8.4 mg/dL Low 8.5-10.1 [facility] Serum or plasma creatinine m easurement (mass/volume)Ordered By: Chente Conn on 04-03-2024 Creatinine [Mass/Vol] 0.21 mg/dL Low 0.70-1.30 [facility] Comment on above: The validity of the calculated GFR & GFRAA in patients over 70 years has not been determined. Clinical correlation is essential. Serum or plasma urea nitroge n measurement (mass/volume)Ordered By: Chente Conn on 04-03-2024 Urea nitrogen [Mass/Vol] 11 mg/dL 7-18 [facility] Sodium levelOrdered By: Chente Conn on 04-03-2024 Sodium [Moles/Vol] 138 mmol/L 136-145 [facility] White blood cell (WBC) count Ordered By: Chente Conn on 04-03-2024 WBC (Bld) [#/Vol] 5.1 10*3/uL 4.4-11.0 [facility] Absolute lymphocyte countOrd ered By: Chente Conn on 03-08-2024 Lymphocytes Auto (Unsp spec) [#/Vol] 1.74 10*3/uL 0.83-4.51 [facility] Absolute neutrophil countOrd ered By: Chente Conn on 03-08-2024 Neutrophils (Bld) [#/Vol] 2.6 10*3/uL 2.0-7.7 [facility] Automated lymphocyte count a s percentage of total leukocytesOrdered By: Chente Conn on 03-08-2024 Lymphocytes/100 WBC Auto (Unsp spec) 33.7 % 19-41 [facility] Basophil percentageOrdered B y: Chente Conn on 03-08-2024 Basophils/100 WBC (Bld) 0.2 % 0-1 [facility] Blood urea nitrogen (BUN)/cr eatinine ratioOrdered By: Chente Conn on 03-08-2024 Urea nitrogen/Creatinine [Mass ratio] 53.2 mg/mg High 10-20 [facility] Carbon dioxide measurementOr dered By: Chente Conn on 03-08-2024 CO2 [Moles/Vol] 31.0 mmol/L 21.0-32.0 [facility] Chloride measurementOrdered By: Chente Conn on 03-08-2024 Chloride [Moles/Vol] 102 mmol/L 98-107 [facility] Eosinophil percentageOrdered By: Chente Conn on 03-08-2024 Eosinophils/100 WBC (Bld) 5.8 % High 0-5 [facility] Erythrocyte distribution wid th ratioOrdered By: Chente Conn on 03-08-2024 Erythrocyte distribution width (RBC) [Ratio] 14.4 % 11.6-14.6 [facility] Erythrocyte distribution wid th standard deviationOrdered By: Chente Conn on 03-08-2024 Erythrocyte distribution width (RBC) [Entitic vol] 43.7 fL 35.1-43.9 [facility] Erythrocyte distribution width (RBC) [Ratio] 43.7 fl 35.1-43.9 [facility] Estimated glomerular filtrat ion rate (GFR) AmericanOrdered By: Chente Conn on 03-08-2024 Estimated GFR (MDRD) Amer 454 mL/min >60 [facility] Comment on above: GFR Calc Glomerular filtration rate ( GFR) estimationOrdered By: Chente Conn on 03-08-2024 Estimated GFR (MDRD) Non-Af Amer 375 mL/min >60 [facility] Comment on above: Non- GFR Calc GFR/1.73 sq M.predicted among non-blacks MDRD (S/P/Bld) [Vol rate/Area] 375 mL/min/{1.73_m2} >60 [facility] Comment on above: Non- GFR Calc Glucose measurementOrdered B y: Chente Conn on 03-08-2024 Glucose [Mass/Vol] 112 mg/dL High 74-106 [facility] Comment on above: Fasting Glucose resu lt from 100 to 125 mg/dL suggests IMPAIRED HOMEOSTASIS per A.D.A. criteria. Hematocrit Auto (Bld) [Volum e fraction]Ordered By: Chente Conn on 03-08-2024 Hematocrit (Bld) [Volume fraction] 31.3 % Low 40-54 [facility] Hemoglobin measurementOrdere d By: Chente Conn on 03-08-2024 Hemoglobin (Bld) [Mass/Vol] 9.7 g/dL Low 13.0-16.5 [facility] Immature granulocytes/100 WB C Auto (Bld)Ordered By: Chente Conn on 03-08-2024 Immature granulocytes/100 WBC (Bld) 0.200 % 0.0-0.9 [facility] Comment on above: IG% - Immature Granu locytes (promyelocytes, myelocytes and metamyelocytes) > 1% indicates that a LEFT SHIFT is Present. Lymphocytes Auto (Unsp spec) [#/Vol]Ordered By: Chente Conn on 03-08-2024 Lymphocytes (Bld) [#/Vol] 1.74 10*3/uL 0.83-4.[address] [facility] Lymphocytes/100 WBC Auto (Un sp spec)Ordered By: Chente Conn on 03-08-2024 Lymphocytes/100 WBC (Bld) 33.7 % 19-41 [facility] MCV (mean corpuscular volume ) determinationOrdered By: Chente Conn on 03-08-2024 MCV (RBC) [Entitic vol] 83.7 fL 80-94 [facility] Mean corpuscular hemoglobin (MCH) determinationOrdered By: Chente Conn on 03-08-2024 MCH (RBC) [Entitic mass] 25.9 pg Low 27.0-32.0 [facility] Mean corpuscular hemoglobin concentration (MCHC) determinationOrdered By: Chente Conn on 03-08-2024 MCHC (RBC) [Mass/Vol] 31.0 g/dL Low 32-36 [facility] Mean platelet volume determi nationOrdered By: Chente Conn on 03-08-2024 Platelet mean volume (Bld) [Entitic vol] 10.7 fL 6.2-12.0 [facility] Monocyte percentageOrdered B y: Chente Conn on 03-08-2024 Monocytes/100 WBC (Bld) 9.7 % 0-10 [facility] Neutrophil percentageOrdered By: Chente Conn on 03-08-2024 Neutrophils/100 WBC (Bld) 50.4 % 47-70 [facility] Nucleated red blood cell per centageOrdered By: Chente Conn on 03-08-2024 Nucleated RBC/100 WBC (Bld) [Ratio] 0 % 0-5 [facility] Platelet countOrdered By: Areli Conn on 03-08-2024 Platelets (Bld) [#/Vol] 177 10*3/uL 150-450 [facility] Potassium measurementOrdered By: Chente Conn on 03-08-2024 Potassium [Moles/Vol] 3.5 mmol/L 3.5-5.1 [facility] RBC Auto (Bld) [#/Vol]Ordere d By: Chente Conn on 03-08-2024 RBC (Bld) [#/Vol] 3.74 10*6/uL Low 4.6-6.2 [facility] Serum anion gap measurementO rdered By: Chente Conn on 03-08-2024 Anion gap [Moles/Vol] 5 mmol/L 5-15 [facility] Serum or plasma calcium jacinta urement (mass/volume)Ordered By: Chente Conn on 03-08-2024 Calcium [Mass/Vol] 8.3 mg/dL Low 8.5-10.1 [facility] Serum or plasma creatinine m easurement (mass/volume)Ordered By: Chente Conn on 03-08-2024 Creatinine [Mass/Vol] 0.28 mg/dL Low 0.70-1.30 [facility] Comment on above: The validity of the calculated GFR & GFRAA in patients over 70 years has not been determined. Clinical correlation is essential. Serum or plasma urea nitroge n measurement (mass/volume)Ordered By: Chente Conn on 03-08-2024 Urea nitrogen [Mass/Vol] 15 mg/dL 7-18 [facility] Sodium levelOrdered By: Chente Conn on 03-08-2024 Sodium [Moles/Vol] 139 mmol/L 136-145 [facility] White blood cell (WBC) count Ordered By: Chente Conn on 03-08-2024 WBC (Bld) [#/Vol] 5.2 10*3/uL 4.4-11.0 [facility] Absolute neutrophil countOrd ered By: Chente Conn on 02-24-2024 Neutrophils (Bld) [#/Vol] 2.3 10*3/uL 2.0-7.7 [facility] Basophil percentageOrdered B y: Chente Conn on 02-24-2024 Basophils/100 WBC (Bld) 0.2 % 0-1 [facility] Blood urea nitrogen (BUN)/cr eatinine ratioOrdered By: Chente Conn on 02-24-2024 Urea nitrogen/Creatinine [Mass ratio] 53.8 mg/mg High 10-20 [facility] Carbon dioxide measurementOr dered By: Chente Conn on 02-24-2024 CO2 [Moles/Vol] 29.0 mmol/L 21.0-32.0 [facility] Chloride measurementOrdered By: Chente Conn on 02-24-2024 Chloride [Moles/Vol] 104 mmol/L 98-107 [facility] Eosinophil percentageOrdered By: Chente Conn on 02-24-2024 Eosinophils/100 WBC (Bld) 5.8 % High 0-5 [facility] Erythrocyte distribution wid th ratioOrdered By: Chente Conn on 02-24-2024 Erythrocyte distribution width (RBC) [Ratio] 14.1 % 11.6-14.6 [facility] Erythrocyte distribution wid th standard deviationOrdered By: Chente Conn on 02-24-2024 Erythrocyte distribution width (RBC) [Entitic vol] 43.2 fL 35.1-43.9 [facility] Estimated glomerular filtrat ion rate (GFR) AmericanOrdered By: Chente Conn on 02-24-2024 Estimated GFR (MDRD) Amer 460 mL/min >60 [facility] Comment on above: GFR Calc Glomerular filtration rate ( GFR) estimationOrdered By: Chente Conn on 02-24-2024 Estimated GFR (MDRD) Non-Af Amer 380 mL/min >60 [facility] Comment on above: Non- GFR Calc Glucose measurementOrdered B y: Chente Conn on 02-24-2024 Glucose [Mass/Vol] 102 mg/dL 74-106 [facility] Comment on above: Fasting Glucose resu lt from 100 to 125 mg/dL suggests IMPAIRED HOMEOSTASIS per A.D.A. criteria. Hematocrit Auto (Bld) [Volum e fraction]Ordered By: Chente Conn on 02-24-2024 Hematocrit (Bld) [Volume fraction] 32.6 % Low 40-54 [facility] Hemoglobin measurementOrdere d By: Chente Conn on 02-24-2024 Hemoglobin (Bld) [Mass/Vol] 9.8 g/dL Low 13.0-16.5 [facility] Immature granulocytes/100 WB C Auto (Bld)Ordered By: Chente Conn on 02-24-2024 Immature granulocytes/100 WBC (Bld) 0.200 % 0.0-0.9 [facility] Comment on above: IG% - Immature Granu locytes (promyelocytes, myelocytes and metamyelocytes) > 1% indicates that a LEFT SHIFT is Present. Lymphocytes Auto (Unsp spec) [#/Vol]Ordered By: Chente Conn on 02-24-2024 Lymphocytes (Bld) [#/Vol] 1.93 10*3/uL 0.83-4.[address] [facility] Lymphocytes/100 WBC Auto (Un sp spec)Ordered By: Chente Conn on 02-24-2024 Lymphocytes/100 WBC (Bld) 38.5 % 19-41 [facility] MCV (mean corpuscular volume ) determinationOrdered By: Chente Conn on 02-24-2024 MCV (RBC) [Entitic vol] 84.9 fL 80-94 [facility] Mean corpuscular hemoglobin (MCH) determinationOrdered By: Chente Conn on 02-24-2024 MCH (RBC) [Entitic mass] 25.5 pg Low 27.0-32.0 [facility] Mean corpuscular hemoglobin concentration (MCHC) determinationOrdered By: Chente Conn on 02-24-2024 MCHC (RBC) [Mass/Vol] 30.1 g/dL Low 32-36 [facility] Mean platelet volume determi nationOrdered By: Chente Conn on 02-24-2024 Platelet mean volume (Bld) [Entitic vol] 9.9 fL 6.2-12.0 [facility] Monocyte percentageOrdered B y: Chente Conn on 02-24-2024 Monocytes/100 WBC (Bld) 8.8 % 0-10 [facility] Neutrophil percentageOrdered By: Chente Conn on 02-24-2024 Neutrophils/100 WBC (Bld) 46.5 % Low 47-70 [facility] Nucleated red blood cell per centageOrdered By: Chente Conn on 02-24-2024 Nucleated RBC/100 WBC (Bld) [Ratio] 0 % 0-5 [facility] Platelet countOrdered By: Areli Conn on 02-24-2024 Platelets (Bld) [#/Vol] 209 10*3/uL 150-450 [facility] Potassium measurementOrdered By: Chente Conn on 02-24-2024 Potassium [Moles/Vol] 3.7 mmol/L 3.5-5.1 [facility] RBC Auto (Bld) [#/Vol]Ordere d By: Chente Conn on 02-24-2024 RBC (Bld) [#/Vol] 3.84 10*6/uL Low 4.6-6.2 [facility] Serum anion gap measurementO rdered By: Chente Conn on 02-24-2024 Anion gap [Moles/Vol] 6 mmol/L 5-15 [facility] Serum or plasma calcium jacinta urement (mass/volume)Ordered By: Chente Conn on 02-24-2024 Calcium [Mass/Vol] 8.2 mg/dL Low 8.5-10.1 [facility] Serum or plasma creatinine m easurement (mass/volume)Ordered By: Chente Conn on 02-24-2024 Creatinine [Mass/Vol] 0.28 mg/dL Low 0.70-1.30 [facility] Comment on above: The validity of the calculated GFR & GFRAA in patients over 70 years has not been determined. Clinical correlation is essential. Serum or plasma urea nitroge n measurement (mass/volume)Ordered By: Chente Conn on 02-24-2024 Urea nitrogen [Mass/Vol] 15 mg/dL 7-18 [facility] Sodium levelOrdered By: Chente Conn on 02-24-2024 Sodium [Moles/Vol] 138 mmol/L 136-145 [facility] White blood cell (WBC) count Ordered By: Chente Conn on 02-24-2024 WBC (Bld) [#/Vol] 5.0 10*3/uL 4.4-11.0 [facility] Absolute neutrophil countOrd ered By: Racquel Moss on 2024 Neutrophils (Bld) [#/Vol] 5.0 10*3/uL 2.0-7.7 [facility] Basophil percentageOrdered B y: Racquel Moss on 2024 Basophils/100 WBC (Bld) 0.2 % 0-1 [facility] Blood cultureOrdered By: Jessi Moss on 2024 Bacteria identified Cx Nom (Bld) No growth in [address] [facility] Blood urea nitrogen (BUN)/cr eatinine ratioOrdered By: Racquel Moss on 2024 Urea nitrogen/Creatinine [Mass ratio] 24.2 mg/mg High 10-20 [facility] C-reactive protein measureme nt by high sensitivity methodOrdered By: Racquel Moss on 2024 C-Reactive Protein Extended Range 73.50 mg/L High 0.0-3.0 [facility] Comment on above: C-Reactive Protein ( CRP) provides useful information for thediagnosis, therapy and monitoring of inflammatory processesand associated diseases. For the evaluation of Relative Riskfor Cardiovascular Disease, a High Sensitivity CRP (HSCRP)should be ordered. Carbon dioxide measurementOr dered By: Racquel oMss on 2024 CO2 [Moles/Vol] 30.0 mmol/L 21.0-32.0 [facility] Chloride measurementOrdered By: Racquel Moss on 2024 Chloride [Moles/Vol] 100 mmol/L 98-107 [facility] Eosinophil percentageOrdered By: Racquel Moss on 2024 Eosinophils/100 WBC (Bld) 0.6 % 0-5 [facility] Erythrocyte distribution wid th ratioOrdered By: Remus Moss on 2024 Erythrocyte distribution width (RBC) [Ratio] 13.8 % 11.6-14.6 [facility] Erythrocyte distribution wid th standard deviationOrdered By: Remus Moss on 2024 Erythrocyte distribution width (RBC) [Entitic vol] 42.7 fL 35.1-43.9 [facility] Erythrocyte sedimentation ra teOrdered By: Remus Unggilles on 2024 ESR (Bld) [Velocity] 47 mm/h High 0-20 [facility] Estimated glomerular filtrat ion rate (GFR) AmericanOrdered By: Remus Unggilles on 2024 Estimated GFR (MDRD) Amer 379 mL/min >60 [facility] Comment on above: GFR Calc Estimation of creatinine poly aranceOrdered By: Racquel Moss on 2024 Estimated Creatinine Clearance Calc 265.33 ml/min [facility] Glomerular filtration rate ( GFR) estimationOrdered By: Racquel Moss on 2024 Estimated GFR (MDRD) Non-Af Amer 313 mL/min >60 [facility] Comment on above: Non- GFR Calc Glucose measurementOrdered B y: Racquel Moss on 2024 Glucose [Mass/Vol] 117 mg/dL High 74-106 [facility] Comment on above: Fasting Glucose resu lt from 100 to 125 mg/dL suggests IMPAIRED HOMEOSTASIS per A.D.A. criteria. Hematocrit Auto (Bld) [Volum e fraction]Ordered By: Racquel Moss on 2024 Hematocrit (Bld) [Volume fraction] 33.5 % Low 40-54 [facility] Hemoglobin measurementOrdere d By: Racquel Moss on 2024 Hemoglobin (Bld) [Mass/Vol] 10.8 g/dL Low 13.0-16.5 [facility] Immature granulocytes/100 WB C Auto (Bld)Ordered By: Racquel Moss on 2024 Immature granulocytes/100 WBC (Bld) 0.600 % 0.0-0.9 [facility] Comment on above: IG% - Immature Granu locytes (promyelocytes, myelocytes and metamyelocytes) > 1% indicates that a LEFT SHIFT is Present. Lactic acid measurementOrder ed By: Racquel Moss on 2024 Lactate [Moles/Vol] 2.0 mmol/L 0.4-2.0 [facility] Comment on above: Critical Result(s) C alled at: 18:05:46 2024 by: SHONDA REAVES. Results read back by Lakesha Steven Lymphocytes Auto (Unsp spec) [#/Vol]Ordered By: Racquel Moss on 2024 Lymphocytes (Bld) [#/Vol] 0.82 10*3/uL Low 0.83-4.5 1 [facility] Lymphocytes/100 WBC Auto (Un sp spec)Ordered By: Racquel Moss on 2024 Lymphocytes/100 WBC (Bld) 12.4 % Low 19-41 [facility] MCV (mean corpuscular volume ) determinationOrdered By: Remus Moss on 2024 MCV (RBC) [Entitic vol] 84.6 fL 80-94 [facility] Mean corpuscular hemoglobin (MCH) determinationOrdered By: Rem Unggilles on 2024 MCH (RBC) [Entitic mass] 27.3 pg 27.0-32.0 [facility] Mean corpuscular hemoglobin concentration (MCHC) determinationOrdered By: Rem Unggilles on 2024 MCHC (RBC) [Mass/Vol] 32.2 g/dL 32-36 [facility] Mean platelet volume determi nationOrdered By: Racquel Moss on 2024 Platelet mean volume (Bld) [Entitic vol] 10.0 fL 6.2-12.0 [facility] Monocyte percentageOrdered B y: Remus Moss on 2024 Monocytes/100 WBC (Bld) 11.2 % High 0-10 [facility] Neutrophil percentageOrdered By: Remus Moss on 2024 Neutrophils/100 WBC (Bld) 75.0 % High 47-70 [facility] Nucleated red blood cell per centageOrdered By: Racquel Moss on 2024 Nucleated RBC/100 WBC (Bld) [Ratio] 0 % 0-5 [facility] Platelet countOrdered By: Carmen Moss on 2024 Platelets (Bld) [#/Vol] 113 10*3/uL Low 150-450 [facility] Potassium measurementOrdered By: Racquel Moss on 2024 Potassium [Moles/Vol] 4.0 mmol/L 3.5-5.1 [facility] RBC Auto (Bld) [#/Vol]Ordere d By: Racquel Unggilles on 2024 RBC (Bld) [#/Vol] 3.96 10*6/uL Low 4.6-6.2 [facility] Serum anion gap measurementO rdered By: Racquel Moss on 2024 Anion gap [Moles/Vol] 4 mmol/L Low 5-15 [facility] Serum or plasma calcium jacinta urement (mass/volume)Ordered By: Racquel Moss on 2024 Calcium [Mass/Vol] 8.9 mg/dL 8.5-10.1 [facility] Serum or plasma creatinine m easurement (mass/volume)Ordered By: Racquel Moss on 2024 Creatinine [Mass/Vol] 0.33 mg/dL Low 0.70-1.30 [facility] Comment on above: The validity of the calculated GFR & GFRAA in patients over 70 years has not been determined. Clinical correlation is essential. Serum or plasma urea nitroge n measurement (mass/volume)Ordered By: Racquel Moss on 2024 Urea nitrogen [Mass/Vol] 8 mg/dL 7-18 [facility] Sodium levelOrdered By: Vinny Moss on 2024 Sodium [Moles/Vol] 135 mmol/L Low 136-145 [facility] White blood cell (WBC) count Ordered By: Racquel Moss on 2024 WBC (Bld) [#/Vol] 6.6 10*3/uL 4.4-11.0 [facility] Absolute neutrophil countOrd ered By: Chente Conn on 01-27-2024 Neutrophils (Bld) [#/Vol] 2.2 10*3/uL 2.0-7.7 [facility] Basophil percentageOrdered B y: Chente Conn on 01-27-2024 Basophils/100 WBC (Bld) 0.5 % 0-1 [facility] Blood urea nitrogen (BUN)/cr eatinine ratioOrdered By: Chente Conn on 01-27-2024 Urea nitrogen/Creatinine [Mass ratio] 43.3 mg/mg High 10-20 [facility] Carbon dioxide measurementOr dered By: Chente Conn on 01-27-2024 CO2 [Moles/Vol] 30.0 mmol/L 21.0-32.0 [facility] Chloride measurementOrdered By: Chente Conn on 01-27-2024 Chloride [Moles/Vol] 103 mmol/L 98-107 [facility] Eosinophil percentageOrdered By: Chente Conn on 01-27-2024 Eosinophils/100 WBC (Bld) 4.7 % 0-5 [facility] Erythrocyte distribution wid th ratioOrdered By: Chente Conn on 01-27-2024 Erythrocyte distribution width (RBC) [Ratio] 14.2 % 11.6-14.6 [facility] Erythrocyte distribution wid th standard deviationOrdered By: Chente Conn on 01-27-2024 Erythrocyte distribution width (RBC) [Entitic vol] 44.8 fL High 35.1-43.9 [facility] Estimated glomerular filtrat ion rate (GFR) AmericanOrdered By: Chente Conn on 01-27-2024 Estimated GFR (MDRD) Amer 388 mL/min >60 [facility] Comment on above: GFR Calc Glomerular filtration rate ( GFR) estimationOrdered By: Chente Conn on 01-27-2024 Estimated GFR (MDRD) Non-Af Amer 321 mL/min >60 [facility] Comment on above: Non- GFR Calc Glucose measurementOrdered B y: Chente Conn on 01-27-2024 Glucose [Mass/Vol] 99 mg/dL 74-106 [facility] Hematocrit Auto (Bld) [Volum e fraction]Ordered By: Chente Conn on 01-27-2024 Hematocrit (Bld) [Volume fraction] 33.6 % Low 40-54 [facility] Hemoglobin measurementOrdere d By: Chente Conn on 01-27-2024 Hemoglobin (Bld) [Mass/Vol] 10.5 g/dL Low 13.0-16.5 [facility] Immature granulocytes/100 WB C Auto (Bld)Ordered By: Chente Conn on 01-27-2024 Immature granulocytes/100 WBC (Bld) 0.000 % 0.0-0.9 [facility] Comment on above: IG% - Immature Granu locytes (promyelocytes, myelocytes and metamyelocytes) > 1% indicates that a LEFT SHIFT is Present. Lymphocytes Auto (Unsp spec) [#/Vol]Ordered By: Chente Conn on 01-27-2024 Lymphocytes (Bld) [#/Vol] 1.16 10*3/uL 0.83-4.[address] [facility] Lymphocytes/100 WBC Auto (Un sp spec)Ordered By: Chente Conn on 01-27-2024 Lymphocytes/100 WBC (Bld) 28.9 % 19-41 [facility] MCV (mean corpuscular volume ) determinationOrdered By: Chente Conn on 01-27-2024 MCV (RBC) [Entitic vol] 85.9 fL 80-94 [facility] Mean corpuscular hemoglobin (MCH) determinationOrdered By: Chente Conn on 01-27-2024 MCH (RBC) [Entitic mass] 26.9 pg Low 27.0-32.0 [facility] Mean corpuscular hemoglobin concentration (MCHC) determinationOrdered By: Chente Conn on 01-27-2024 MCHC (RBC) [Mass/Vol] 31.3 g/dL Low 32-36 [facility] Mean platelet volume determi nationOrdered By: Chente Conn on 01-27-2024 Platelet mean volume (Bld) [Entitic vol] 10.3 fL 6.2-12.0 [facility] Monocyte percentageOrdered B y: Chente Conn on 01-27-2024 Monocytes/100 WBC (Bld) 10.2 % High 0-10 [facility] Neutrophil percentageOrdered By: Chente Conn on 01-27-2024 Neutrophils/100 WBC (Bld) 55.7 % 47-70 [facility] Nucleated red blood cell per centageOrdered By: Chente Conn on 01-27-2024 Nucleated RBC/100 WBC (Bld) [Ratio] 0 % 0-5 [facility] Platelet countOrdered By: Areli Conn on 01-27-2024 Platelets (Bld) [#/Vol] 161 10*3/uL 150-450 [facility] Potassium measurementOrdered By: Chente Conn on 01-27-2024 Potassium [Moles/Vol] 4.0 mmol/L 3.5-5.1 [facility] RBC Auto (Bld) [#/Vol]Ordere d By: Chente Conn on 01-27-2024 RBC (Bld) [#/Vol] 3.91 10*6/uL Low 4.6-6.2 [facility] Serum anion gap measurementO rdered By: Chente Conn on 01-27-2024 Anion gap [Moles/Vol] 7 mmol/L 5-15 [facility] Serum or plasma calcium jacinta urement (mass/volume)Ordered By: Chente Conn on 01-27-2024 Calcium [Mass/Vol] 9.0 mg/dL 8.5-10.1 [facility] Serum or plasma creatinine m easurement (mass/volume)Ordered By: Chente Conn on 01-27-2024 Creatinine [Mass/Vol] 0.32 mg/dL Low 0.70-1.30 [facility] Comment on above: The validity of the calculated GFR & GFRAA in patients over 70 years has not been determined. Clinical correlation is essential. Serum or plasma urea nitroge n measurement (mass/volume)Ordered By: Chente Conn on 01-27-2024 Urea nitrogen [Mass/Vol] 14 mg/dL 7-18 [facility] Sodium levelOrdered By: Chente Conn on 01-27-2024 Sodium [Moles/Vol] 140 mmol/L 136-145 [facility] White blood cell (WBC) count Ordered By: Chente Conn on 01-27-2024 WBC (Bld) [#/Vol] 4.0 10*3/uL Low 4.4-11.0 [facility] Absolute lymphocyte countOrd ered By: Torey Huffman on 06-14-2023 Lymphocytes Auto (Unsp spec) [#/Vol] 2.38 10*3/uL 0.83-4.51 [facility] Automated lymphocyte count a s percentage of total leukocytesOrdered By: Torey Huffman on 06-14-2023 Lymphocytes/100 WBC Auto (Unsp spec) 35.4 % 19-41 [facility] Basophil percentageOrdered B y: Torey Huffman on 06-14-2023 Basophils/100 WBC (Bld) 0.3 % 0-1 [facility] Chloride [Moles/Vol] 104 mmol/L 98-107 [facility] Eosinophils/100 WBC (Bld) 4.3 % 0-5 [facility] Glucose [Mass/Vol] 101 mg/dL 74-106 [facility] Comment on above: Fasting Glucose resu lt from 100 to 125 mg/dL suggests IMPAIRED HOMEOSTASIS per A.D.A. criteria. Hemoglobin (Bld) [Mass/Vol] 11.2 g/dL 13.0-16.5 [facility] Monocytes/100 WBC (Bld) 9.4 % 0-10 [facility] Neutrophils (Bld) [#/Vol] 3.4 10*3/uL 2.0-7.7 [facility] Neutrophils/100 WBC (Bld) 50.5 % 47-70 [facility] Potassium [Moles/Vol] 3.7 mmol/L 3.5-5.1 [facility] Sodium [Moles/Vol] 139 mmol/L 136-145 [facility] WBC (Bld) [#/Vol] 6.7 10*3/uL 4.4-11.0 [facility] Determination of erythrocyte mean corpuscular volume (MCV)Ordered By: Torey Huffman on 06-14-2023 MCV (RBC) [Entitic vol] 83.3 fL 80-94 [facility] Erythrocyte distribution wid th ratioOrdered By: Torey Huffman on 06-14-2023 Erythrocyte distribution width (RBC) [Ratio] 14.7 % 11.6-14.6 [facility] Erythrocyte distribution wid th standard deviationOrdered By: Torey Huffman on 06-14-2023 Erythrocyte distribution width (RBC) [Entitic vol] 44.5 fL 35.1-43.9 [facility] Hematocrit Auto (Bld) [Volum e fraction]Ordered By: Torey Huffman on 06-14-2023 Hematocrit (Bld) [Volume fraction] 34.4 % 40-54 [facility] Immature granulocytes/100 WB C Auto (Bld)Ordered By: Torey Huffman on 06-14-2023 Immature granulocytes/100 WBC (Bld) 0.100 % 0.0-0.9 [facility] Comment on above: IG% - Immature Granu locytes (promyelocytes, myelocytes and metamyelocytes) > 1% indicates that a LEFT SHIFT is Present. Laboratory - Chemistry and C hemistry - challengeOrdered By: Torey Huffman on 06-14-2023 CO2 [Moles/Vol] 31.0 mmol/L 21.0-32.0 [facility] Urea nitrogen/Creatinine [Mass ratio] 43.2 mg/mg 10-20 [facility] Laboratory - Hematology and Cell countsOrdered By: Torey Huffman on 06-14-2023 MCH (RBC) [Entitic mass] 27.1 pg 27.0-32.0 [facility] MCHC (RBC) [Mass/Vol] 32.6 g/dL 32-36 [facility] Nucleated RBC/100 WBC (Bld) [Ratio] 0 % 0-5 [facility] Platelet mean volume (Bld) [Entitic vol] 10.4 fL 6.2-12.0 [facility] Platelets (Bld) [#/Vol] 178 10*3/uL 150-450 [facility] No Panel InformationOrdered By: Torey Huffman on 06-14-2023 Estimated GFR (MDRD) Amer 423 mL/min >60 [facility] Comment on above: GFR Calc Estimated GFR (MDRD) Non-Af Amer 349 mL/min >60 [facility] Comment on above: Non- GFR Calc RBC Auto (Bld) [#/Vol]Ordere d By: Torey Huffman on 06-14-2023 RBC (Bld) [#/Vol] 4.13 10*6/uL 4.6-6.2 [facility] Serum or plasma calcium jacinta urement (mass/volume)Ordered By: Torey Huffman on 06-14-2023 Calcium [Mass/Vol] 8.3 mg/dL 8.5-10.1 [facility] Serum or plasma creatinine m easurement (mass/volume)Ordered By: Torey Huffman on 06-14-2023 Creatinine [Mass/Vol] 0.30 mg/dL 0.70-1.30 [facility] Comment on above: The validity of the calculated GFR & GFRAA in patients over 70 years has not been determined. Clinical correlation is essential. Serum or plasma urea nitroge n measurement (mass/volume)Ordered By: Torey Huffman on 06-14-2023 Urea nitrogen [Mass/Vol] 13 mg/dL 7-18 [facility] Thin prep Papanicolaou smear with manual screeningOrdered By: Torey Huffman on 06-14-2023 Thin prep Papanicolaou smear with manual screening 4 5-15 [facility] Absolute lymphocyte countOrd ered By: Torey Huffman on 05-17-2023 Lymphocytes Auto (Unsp spec) [#/Vol] 2.30 10*3/uL 0.83-4.51 [facility] Automated lymphocyte count a s percentage of total leukocytesOrdered By: Torey Huffman on 05-17-2023 Lymphocytes/100 WBC Auto (Unsp spec) 36.7 % 19-41 [facility] Basophil percentageOrdered B y: Torey Huffman on 05-17-2023 Basophils/100 WBC (Bld) 0.3 % 0-1 [facility] Chloride [Moles/Vol] 104 mmol/L 98-107 [facility] Eosinophils/100 WBC (Bld) 4.5 % 0-5 [facility] Glucose [Mass/Vol] 88 mg/dL 74-106 [facility] Hemoglobin (Bld) [Mass/Vol] 11.2 g/dL 13.0-16.5 [facility] Monocytes/100 WBC (Bld) 8.1 % 0-10 [facility] Neutrophils (Bld) [#/Vol] 3.1 10*3/uL 2.0-7.7 [facility] Neutrophils/100 WBC (Bld) 50.1 % 47-70 [facility] Potassium [Moles/Vol] 4.0 mmol/L 3.5-5.1 [facility] Sodium [Moles/Vol] 139 mmol/L 136-145 [facility] WBC (Bld) [#/Vol] 6.3 10*3/uL 4.4-11.0 [facility] Determination of erythrocyte mean corpuscular volume (MCV)Ordered By: Torey Huffman on 05-17-2023 MCV (RBC) [Entitic vol] 84.5 fL 80-94 [facility] Erythrocyte distribution wid th ratioOrdered By: Torey Huffman on 05-17-2023 Erythrocyte distribution width (RBC) [Ratio] 14.6 % 11.6-14.6 [facility] Erythrocyte distribution wid th standard deviationOrdered By: Torey Huffman on 05-17-2023 Erythrocyte distribution width (RBC) [Entitic vol] 45.0 fL 35.1-43.9 [facility] Hematocrit Auto (Bld) [Volum e fraction]Ordered By: Torey Huffman on 05-17-2023 Hematocrit (Bld) [Volume fraction] 36.6 % 40-54 [facility] Immature granulocytes/100 WB C Auto (Bld)Ordered By: Torey Huffman on 05-17-2023 Immature granulocytes/100 WBC (Bld) 0.300 % 0.0-0.9 [facility] Comment on above: IG% - Immature Granu locytes (promyelocytes, myelocytes and metamyelocytes) > 1% indicates that a LEFT SHIFT is Present. Laboratory - Chemistry and C hemistry - challengeOrdered By: Torey Huffman on 05-17-2023 CO2 [Moles/Vol] 31.0 mmol/L 21.0-32.0 [facility] Urea nitrogen/Creatinine [Mass ratio] 45.9 mg/mg 10-20 [facility] Laboratory - Hematology and Cell countsOrdered By: Torey Huffman on 05-17-2023 MCH (RBC) [Entitic mass] 25.9 pg 27.0-32.0 [facility] MCHC (RBC) [Mass/Vol] 30.6 g/dL 32-36 [facility] Nucleated RBC/100 WBC (Bld) [Ratio] 0 % 0-5 [facility] Platelet mean volume (Bld) [Entitic vol] 10.8 fL 6.2-12.0 [facility] Platelets (Bld) [#/Vol] 206 10*3/uL 150-450 [facility] No Panel InformationOrdered By: Torey Hfufman on 05-17-2023 Estimated GFR (MDRD) Amer 416 mL/min >60 [facility] Comment on above: GFR Calc Estimated GFR (MDRD) Non-Af Amer 344 mL/min >60 [facility] Comment on above: Non- GFR Calc RBC Auto (Bld) [#/Vol]Ordere d By: Torey Huffman on 05-17-2023 RBC (Bld) [#/Vol] 4.33 10*6/uL 4.6-6.2 [facility] Serum or plasma calcium jacinta urement (mass/volume)Ordered By: Torey Huffman on 05-17-2023 Calcium [Mass/Vol] 8.6 mg/dL 8.5-10.1 [facility] Serum or plasma creatinine m easurement (mass/volume)Ordered By: Torey Huffman on 05-17-2023 Creatinine [Mass/Vol] 0.30 mg/dL 0.70-1.30 [facility] Comment on above: The validity of the calculated GFR & GFRAA in patients over 70 years has not been determined. Clinical correlation is essential. Serum or plasma urea nitroge n measurement (mass/volume)Ordered By: Torey Huffman on 05-17-2023 Urea nitrogen [Mass/Vol] 14 mg/dL 7-18 [facility] Thin prep Papanicolaou smear with manual screeningOrdered By: Torey Huffman on 05-17-2023 Thin prep Papanicolaou smear with manual screening 4 5-15 [facility] Absolute lymphocyte countOrd ered By: Torey Huffman on 04-19-2023 Lymphocytes Auto (Unsp spec) [#/Vol] 2.37 10*3/uL 0.83-4.51 [facility] Automated lymphocyte count a s percentage of total leukocytesOrdered By: Torey Huffman on 04-19-2023 Lymphocytes/100 WBC Auto (Unsp spec) 31.8 % 19-41 [facility] Basophil percentageOrdered B y: Torey Huffman on 04-19-2023 Basophils/100 WBC (Bld) 0.4 % 0-1 [facility] Chloride [Moles/Vol] 105 mmol/L 98-107 [facility] Eosinophils/100 WBC (Bld) 5.0 % 0-5 [facility] Glucose [Mass/Vol] 102 mg/dL 74-106 [facility] Comment on above: Fasting Glucose resu lt from 100 to 125 mg/dL suggests IMPAIRED HOMEOSTASIS per A.D.A. criteria. Hemoglobin (Bld) [Mass/Vol] 11.4 g/dL 13.0-16.5 [facility] Monocytes/100 WBC (Bld) 9.4 % 0-10 [facility] Neutrophils (Bld) [#/Vol] 4.0 10*3/uL 2.0-7.7 [facility] Neutrophils/100 WBC (Bld) 53.0 % 47-70 [facility] Potassium [Moles/Vol] 4.1 mmol/L 3.5-5.1 [facility] Sodium [Moles/Vol] 138 mmol/L 136-145 [facility] WBC (Bld) [#/Vol] 7.5 10*3/uL 4.4-11.0 [facility] Determination of erythrocyte mean corpuscular volume (MCV)Ordered By: Torey Huffman on 04-19-2023 MCV (RBC) [Entitic vol] 84.7 fL 80-94 [facility] Erythrocyte distribution wid th ratioOrdered By: Torey Huffman on 04-19-2023 Erythrocyte distribution width (RBC) [Ratio] 14.8 % 11.6-14.6 [facility] Erythrocyte distribution wid th standard deviationOrdered By: Torey Huffman on 04-19-2023 Erythrocyte distribution width (RBC) [Entitic vol] 45.9 fL 35.1-43.9 [facility] Hematocrit Auto (Bld) [Volum e fraction]Ordered By: Torey Huffman on 04-19-2023 Hematocrit (Bld) [Volume fraction] 37.2 % 40-54 [facility] Immature granulocytes/100 WB C Auto (Bld)Ordered By: Torey Huffman on 04-19-2023 Immature granulocytes/100 WBC (Bld) 0.400 % 0.0-0.9 [facility] Comment on above: IG% - Immature Granu locytes (promyelocytes, myelocytes and metamyelocytes) > 1% indicates that a LEFT SHIFT is Present. Laboratory - Chemistry and C hemistry - challengeOrdered By: Torey Huffman on 04-19-2023 CO2 [Moles/Vol] 28.0 mmol/L 21.0-32.0 [facility] Urea nitrogen/Creatinine [Mass ratio] 58.3 mg/mg 10-20 [facility] Laboratory - Hematology and Cell countsOrdered By: Torey Huffman on 04-19-2023 MCH (RBC) [Entitic mass] 26.0 pg 27.0-32.0 [facility] MCHC (RBC) [Mass/Vol] 30.6 g/dL 32-36 [facility] Nucleated RBC/100 WBC (Bld) [Ratio] 0 % 0-5 [facility] Platelet mean volume (Bld) [Entitic vol] 10.4 fL 6.2-12.0 [facility] Platelets (Bld) [#/Vol] 198 10*3/uL 150-450 [facility] No Panel InformationOrdered By: Torey Huffman on 04-19-2023 Estimated GFR (MDRD) Amer 410 mL/min >60 [facility] Comment on above: GFR Calc Estimated GFR (MDRD) Non-Af Amer 339 mL/min >60 [facility] Comment on above: Non- GFR Calc RBC Auto (Bld) [#/Vol]Ordere d By: Torey Huffman on 04-19-2023 RBC (Bld) [#/Vol] 4.39 10*6/uL 4.6-6.2 [facility] Serum or plasma calcium jacinta urement (mass/volume)Ordered By: Torey Huffman on 04-19-2023 Calcium [Mass/Vol] 8.8 mg/dL 8.5-10.1 [facility] Serum or plasma creatinine m easurement (mass/volume)Ordered By: Torey Huffman on 04-19-2023 Creatinine [Mass/Vol] 0.31 mg/dL 0.70-1.30 [facility] Comment on above: The validity of the calculated GFR & GFRAA in patients over 70 years has not been determined. Clinical correlation is essential. Serum or plasma urea nitroge n measurement (mass/volume)Ordered By: Torey Huffman on 04-19-2023 Urea nitrogen [Mass/Vol] 18 mg/dL 7-18 [facility] Thin prep Papanicolaou smear with manual screeningOrdered By: Torey Huffman on 04-19-2023 Thin prep Papanicolaou smear with manual screening 5 5-15 [facility] Absolute lymphocyte countOrd ered By: Anthony Russell on 04-13-2023 Lymphocytes Auto (Unsp spec) [#/Vol] 3.45 10*3/uL 0.83-4.51 [facility] Activated partial thrombopla stin time (aPTT) in platelet poor plasma by coagulation aOrdered By: Anthony Russell on 04-13-2023 aPTT Coag (PPP) [Time] 25.7 s 24.1-36.2 [facility] Automated lymphocyte count a s percentage of total leukocytesOrdered By: Anthony Russell on 04-13-2023 Lymphocytes/100 WBC Auto (Unsp spec) 43.5 % 19-41 [facility] Basophil percentageOrdered B y: Anthony Russell on 04-13-2023 Basophils/100 WBC (Bld) 0.5 % 0-1 [facility] Chloride [Moles/Vol] 103 mmol/L 98-107 [facility] Eosinophils/100 WBC (Bld) 3.7 % 0-5 [facility] Glucose [Mass/Vol] 116 mg/dL 74-106 [facility] Comment on above: Fasting Glucose resu lt from 100 to 125 mg/dL suggests IMPAIRED HOMEOSTASIS per A.D.A. criteria. Hemoglobin (Bld) [Mass/Vol] 12.4 g/dL 13.0-16.5 [facility] Monocytes/100 WBC (Bld) 7.8 % 0-10 [facility] Neutrophils (Bld) [#/Vol] 3.5 10*3/uL 2.0-7.7 [facility] Neutrophils/100 WBC (Bld) 44.2 % 47-70 [facility] Potassium [Moles/Vol] 4.0 mmol/L 3.5-5.1 [facility] Sodium [Moles/Vol] 137 mmol/L 136-145 [facility] WBC (Bld) [#/Vol] 7.9 10*3/uL 4.4-11.0 [facility] Determination of erythrocyte mean corpuscular volume (MCV)Ordered By: Anthony Russell on 04-13-2023 MCV (RBC) [Entitic vol] 82.9 fL 80-94 [facility] Erythrocyte distribution wid th ratioOrdered By: Anthony Russell on 04-13-2023 Erythrocyte distribution width (RBC) [Ratio] 14.9 % 11.6-14.6 [facility] Erythrocyte distribution wid th standard deviationOrdered By: Anthony Russell on 04-13-2023 Erythrocyte distribution width (RBC) [Entitic vol] 44.8 fL 35.1-43.9 [facility] Hematocrit Auto (Bld) [Volum e fraction]Ordered By: Anthony Russell on 04-13-2023 Hematocrit (Bld) [Volume fraction] 40.2 % 40-54 [facility] Immature granulocytes/100 WB C Auto (Bld)Ordered By: Anthony Russell on 04-13-2023 Immature granulocytes/100 WBC (Bld) 0.300 % 0.0-0.9 [facility] Comment on above: IG% - Immature Granu locytes (promyelocytes, myelocytes and metamyelocytes) > 1% indicates that a LEFT SHIFT is Present. Laboratory - Chemistry and C hemistry - challengeOrdered By: Anthony Russell on 04-13-2023 CO2 [Moles/Vol] 24.0 mmol/L 21.0-32.0 [facility] Urea nitrogen/Creatinine [Mass ratio] 39.7 mg/mg 10-20 [facility] Laboratory - CoagulationOrde red By: Anthony Russell on 04-13-2023 INR Coag (Bld) [Relative time] 1.0 {INR} [facility] PT Coag (PPP) [Time] 13.3 s 11.7-14.9 [facility] Laboratory - Hematology and Cell countsOrdered By: Anthony Russell on 04-13-2023 MCH (RBC) [Entitic mass] 25.6 pg 27.0-32.0 [facility] MCHC (RBC) [Mass/Vol] 30.8 g/dL 32-36 [facility] Nucleated RBC/100 WBC (Bld) [Ratio] 0 % 0-5 [facility] Platelet mean volume (Bld) [Entitic vol] 10.2 fL 6.2-12.0 [facility] Platelets (Bld) [#/Vol] 216 10*3/uL 150-450 [facility] No Panel InformationOrdered By: Anthony Russell on 04-13-2023 D-Dimer Quantitative (PE/DVT) < 0.27 FEU/ug/m 0.27-0.49 [facility] Comment on above: NORMAL D-Dimer level (<0.50) indicates no DVT or PE. Estimated Creatinine Clearance Calc 176.92 ml/min [facility] Estimated GFR (MDRD) Amer 248 mL/min >60 [facility] Comment on above: GFR Calc Estimated GFR (MDRD) Non-Af Amer 205 mL/min >60 [facility] Comment on above: Non- GFR Calc Troponin I High Sensitivity < 3 pg/mL 3.0-78.0 [facility] Comment on above: Please Note: New Suha t Units and Gender Specific Reference Ranges. For more information see Policy Stat Procedure [place] High Sensitivity Troponin (TNIH) and attachments. RBC Auto (Bld) [#/Vol]Ordere d By: Anthony Russell on 04-13-2023 RBC (Bld) [#/Vol] 4.85 10*6/uL 4.6-6.2 [facility] Serum or plasma calcium jacinta urement (mass/volume)Ordered By: Anthony Russell on 04-13-2023 Calcium [Mass/Vol] 9.2 mg/dL 8.5-10.1 [facility] Serum or plasma creatinine m easurement (mass/volume)Ordered By: Anthony Russell on 04-13-2023 Creatinine [Mass/Vol] 0.48 mg/dL 0.70-1.30 [facility] Comment on above: The validity of the calculated GFR & GFRAA in patients over 70 years has not been determined. Clinical correlation is essential. Serum or plasma urea nitroge n measurement (mass/volume)Ordered By: Anthony Russell on 04-13-2023 Urea nitrogen [Mass/Vol] 19 mg/dL 7-18 [facility] Thin prep Papanicolaou smear with manual screeningOrdered By: Anthony Russell on 04-13-2023 Thin prep Papanicolaou smear with manual screening 10 5-15 [facility] Absolute lymphocyte countOrd ered By: Lucia Dillard on 03-24-2023 Lymphocytes Auto (Unsp spec) [#/Vol] 1.76 10*3/uL 0.83-4.51 [facility] Automated lymphocyte count a s percentage of total leukocytesOrdered By: Lucia Dillard on 03-24-2023 Lymphocytes/100 WBC Auto (Unsp spec) 25.6 % 19-41 [facility] Basophil percentageOrdered B y: Lucia Dillard on 03-24-2023 Basophil percentage 10.8 g/dL 13.0-16.5 [facility] Basophil percentage 91 mg/dL 74-106 [facility] Basophil percentage 7.5 g/dL 6.4-8.2 [facility] Basophil percentage 0.30 mg/dL 0.20-1.00 [facility] Basophil percentage 137 mmol/L 136-145 [facility] Basophil percentage 3.6 mmol/L 3.5-5.1 [facility] Basophil percentage 106 mmol/L 98-107 [facility] Basophils (Bld) [#/Vol] 6.9 10*3/uL 4.4-11.0 [facility] Basophils (Bld) [#/Vol] 4.3 10*3/uL 2.0-7.7 [facility] Basophils/100 WBC (Bld) 62.2 % 47-70 [facility] Basophils/100 WBC (Bld) 8.9 % 0-10 [facility] Basophils/100 WBC (Bld) 2.9 % 0-5 [facility] Basophils/100 WBC (Bld) 0.3 % 0-1 [facility] Bilirubin [Mass/Vol] 0.30 mg/dL 0.20-1.00 [facility] Comment on above: For patients on eltr ombopag therapy, use of Dimension [place] TBIL is not recommended. Chloride [Moles/Vol] 106 mmol/L 98-107 [facility] Eosinophils/100 WBC (Bld) 2.9 % 0-5 [facility] Glucose [Mass/Vol] 91 mg/dL 74-106 [facility] Hemoglobin (Bld) [Mass/Vol] 10.8 g/dL 13.0-16.5 [facility] Monocytes/100 WBC (Bld) 8.9 % 0-10 [facility] Neutrophils (Bld) [#/Vol] 4.3 10*3/uL 2.0-7.7 [facility] Neutrophils/100 WBC (Bld) 62.2 % 47-70 [facility] Potassium [Moles/Vol] 3.6 mmol/L 3.5-5.1 [facility] Protein [Mass/Vol] 7.5 g/dL 6.4-8.2 [facility] Sodium [Moles/Vol] 137 mmol/L 136-145 [facility] WBC (Bld) [#/Vol] 6.9 10*3/uL 4.4-11.0 [facility] Basophil percentageOrdered B y: Dominic Méndez on 03-24-2023 Basophil percentage 0.5 mmol/L 0.4-2.0 [facility] Lactate [Moles/Vol] 0.5 mmol/L 0.4-2.0 [facility] Determination of erythrocyte mean corpuscular volume (MCV)Ordered By: Lucia Dillard on 03-24-2023 MCV (RBC) [Entitic vol] 84.4 fL 80-94 [facility] Erythrocyte distribution wid th ratioOrdered By: Lucia Dillard on 03-24-2023 Erythrocyte distribution width (RBC) [Ratio] 14.9 % 11.6-14.6 [facility] Erythrocyte distribution wid th standard deviationOrdered By: Lucia Dillard on 03-24-2023 Erythrocyte distribution width (RBC) [Entitic vol] 46.0 fL 35.1-43.9 [facility] Hematocrit Auto (Bld) [Volum e fraction]Ordered By: Lucia Dillard on 03-24-2023 Hematocrit (Bld) [Volume fraction] 35.2 % 40-54 [facility] Immature granulocytes/100 WB C Auto (Bld)Ordered By: Lucia Dillard on 03-24-2023 Immature granulocytes/100 WBC (Bld) 0.100 % 0.0-0.9 [facility] Comment on above: IG% - Immature Granu locytes (promyelocytes, myelocytes and metamyelocytes) > 1% indicates that a LEFT SHIFT is Present. Laboratory - Chemistry and C hemistry - challengeOrdered By: Lucia Dillard on 03-24-2023 Albumin/Globulin [Mass ratio] 0.7 {ratio} 0.9-2.4 [facility] ALP [Catalytic activity/Vol] 153 U/L 45-117 [facility] ALT [Catalytic activity/Vol] 25 U/L 16-61 [facility] CO2 [Moles/Vol] 29.0 mmol/L 21.0-32.0 [facility] Globulin (S) [Mass/Vol] 4.4 g/dL 2.2-4.2 [facility] Urea nitrogen/Creatinine [Mass ratio] 74.7 mg/mg 10-20 [facility] Laboratory - Hematology and Cell countsOrdered By: Lucia Dillard on 03-24-2023 MCH (RBC) [Entitic mass] 25.9 pg 27.0-32.0 [facility] MCHC (RBC) [Mass/Vol] 30.7 g/dL 32-36 [facility] Nucleated RBC/100 WBC (Bld) [Ratio] 0 % 0-5 [facility] Platelets (Bld) [#/Vol] 181 10*3/uL 150-450 [facility] No Panel InformationOrdered By: Lucia Dillard on 03-24-2023 Estimated Creatinine Clearance Calc 351.31 ml/min [facility] Estimated GFR (MDRD) Amer 547 mL/min >60 [facility] Comment on above: GFR Calc Estimated GFR (MDRD) Non-Af Amer 452 mL/min >60 [facility] Comment on above: Non- GFR Calc 25.9 pg 27.0-32.0 [facility] 30.7 g/dL 32-36 [facility] 181 K/mm3 150-450 [facility] 0 % 0-5 [facility] 452 mL/min >60 [facility] 547 mL/min >60 [facility] 351.31 ml/min [facility] 74.7 RATIO 10-20 [facility] 4.4 g/dL 2.2-4.2 [facility] 0.7 RATIO 0.9-2.4 [facility] 153 U/L 45-117 [facility] 25 U/L 16-61 [facility] 29.0 mmol/L 21.0-32.0 [facility] Platelet mean volume Jm-Ec ker (Bld) [Entitic vol]Ordered By: Lucia Dillard on 03-24-2023 Platelet mean volume (Bld) [Entitic vol] 10.4 fL 6.2-12.0 [facility] RBC Auto (Bld) [#/Vol]Ordere d By: Lucia Dillard on 03-24-2023 RBC (Bld) [#/Vol] 4.17 10*6/uL 4.6-6.2 [facility] Serum or plasma calcium jacinta urement (mass/volume)Ordered By: Lucia Dillard on 03-24-2023 Calcium [Mass/Vol] 8.2 mg/dL 8.5-10.1 [facility] Serum or plasma creatinine m easurement (mass/volume)Ordered By: Lucia Dillard on 03-24-2023 Creatinine [Mass/Vol] 0.24 mg/dL 0.70-1.30 [facility] Comment on above: The validity of the calculated GFR & GFRAA in patients over 70 years has not been determined. Clinical correlation is essential. Serum or plasma urea nitroge n measurement (mass/volume)Ordered By: Lucia Dillard on 03-24-2023 Urea nitrogen [Mass/Vol] 18 mg/dL 7-18 [facility] Thin prep Papanicolaou smear with manual screeningOrdered By: Lucia Dillard on 03-24-2023 Thin prep Papanicolaou smear with manual screening 3.1 g/dL 3.2-5.0 [facility] Thin prep Papanicolaou smear with manual screening 14 U/L 15-37 [facility] Thin prep Papanicolaou smear with manual screening 2 5-15 [facility] Absolute lymphocyte countOrd ered By: Dominic Méndez on 03-23-2023 Lymphocytes Auto (Unsp spec) [#/Vol] 2.81 10*3/uL 0.83-4.51 [facility] Activated partial thrombopla stin time (aPTT) in platelet poor plasma by coagulation aOrdered By: Dominic Méndez on 03-23-2023 aPTT Coag (PPP) [Time] 31.1 s 24.1-36.2 [facility] Automated lymphocyte count a s percentage of total leukocytesOrdered By: Dominic Méndez on 03-23-2023 Lymphocytes/100 WBC Auto (Unsp spec) 21.7 % 19-41 [facility] Basophil percentageOrdered B y: Dominic Méndez on 03-23-2023 Bilirubin [Mass/Vol] 0.20 mg/dL 0.20-1.00 [facility] Comment on above: For patients on eltr ombopag therapy, use of Dimension [place] TBIL is not recommended. Chloride [Moles/Vol] 104 mmol/L 98-107 [facility] Glucose [Mass/Vol] 123 mg/dL 74-106 [facility] Comment on above: Fasting Glucose resu lt from 100 to 125 mg/dL suggests IMPAIRED HOMEOSTASIS per A.D.A. criteria. Potassium [Moles/Vol] 3.7 mmol/L 3.5-5.1 [facility] Protein [Mass/Vol] 8.8 g/dL 6.4-8.2 [facility] Sodium [Moles/Vol] 135 mmol/L 136-145 [facility] Basophils/100 WBC (Bld) 0.2 % 0-1 [facility] Eosinophils/100 WBC (Bld) 2.0 % 0-5 [facility] Hemoglobin (Bld) [Mass/Vol] 13.1 g/dL 13.0-16.5 [facility] Lactate [Moles/Vol] 5.3 mmol/L 0.4-2.0 [facility] Comment on above: Critical Result(s) C alled at: 13:12:15 03/23/2023 by: Moraima Simmons. Results read back by same. Monocytes/100 WBC (Bld) 5.1 % 0-10 [facility] Neutrophils (Bld) [#/Vol] 9.1 10*3/uL 2.0-7.7 [facility] Neutrophils/100 WBC (Bld) 70.6 % 47-70 [facility] WBC (Bld) [#/Vol] 13.0 10*3/uL 4.4-11.0 [facility] Culture, urineOrdered By: Champ Méndez on 03-23-2023 Bacteria identified Cx Nom (U) Culture exhibits no growth. [facility] Bacteria identified Cx Nom (U) Culture exhibits no growth. [facility] Determination of erythrocyte mean corpuscular volume (MCV)Ordered By: Dominic Méndez on 03-23-2023 MCV (RBC) [Entitic vol] 83.2 fL 80-94 [facility] Erythrocyte distribution wid th ratioOrdered By: Dominic Méndez on 03-23-2023 Erythrocyte distribution width (RBC) [Ratio] 14.8 % 11.6-14.6 [facility] Erythrocyte distribution wid th standard deviationOrdered By: Dominic Méndez on 03-23-2023 Erythrocyte distribution width (RBC) [Entitic vol] 45.1 fL 35.1-43.9 [facility] Hematocrit Auto (Bld) [Volum e fraction]Ordered By: Dominic Méndez on 03-23-2023 Hematocrit (Bld) [Volume fraction] 42.2 % 40-54 [facility] Immature granulocytes/100 WB C Auto (Bld)Ordered By: Dominic Méndez on 03-23-2023 Immature granulocytes/100 WBC (Bld) 0.400 % 0.0-0.9 [facility] Comment on above: IG% - Immature Granu locytes (promyelocytes, myelocytes and metamyelocytes) > 1% indicates that a LEFT SHIFT is Present. International normalized rat io (INR) calculationOrdered By: Dominic Méndez on 03-23-2023 INR Coag (PPP) [Relative time] 1.0 {INR} [facility] Laboratory - Chemistry and C hemistry - challengeOrdered By: Dominic Méndez on 03-23-2023 Albumin/Globulin [Mass ratio] 0.7 {ratio} 0.9-2.4 [facility] ALP [Catalytic activity/Vol] 169 U/L 45-117 [facility] ALT [Catalytic activity/Vol] 29 U/L 16-61 [facility] CO2 [Moles/Vol] 26.0 mmol/L 21.0-32.0 [facility] Globulin (S) [Mass/Vol] 5.2 g/dL 2.2-4.2 [facility] Urea nitrogen/Creatinine [Mass ratio] 46.1 mg/mg 10-20 [facility] Laboratory - CoagulationOrde red By: Dominic Méndez on 03-23-2023 PT Coag (PPP) [Time] 12.9 s 11.7-14.9 [facility] Laboratory - Hematology and Cell countsOrdered By: Dominic Méndez on 03-23-2023 MCH (RBC) [Entitic mass] 25.8 pg 27.0-32.0 [facility] MCHC (RBC) [Mass/Vol] 31.0 g/dL 32-36 [facility] Nucleated RBC/100 WBC (Bld) [Ratio] 0 % 0-5 [facility] Platelets (Bld) [#/Vol] 229 10*3/uL 150-450 [facility] Laboratory - Microbiology an d Antimicrobial susceptibilityOrdered By: Dominic Méndez on 03-23-2023 Bacteria identified Cx Nom (Bld) No growth in [address] [facility] Bacteria identified Cx Nom (Bld) No growth in [address] [facility] No Panel InformationOrdered By: Dominic Méndez on 03-23-2023 Estimated Creatinine Clearance Calc 186.40 ml/min [facility] Estimated GFR (MDRD) Amer 262 mL/min >60 [facility] Comment on above: GFR Calc Estimated GFR (MDRD) Non-Af Amer 217 mL/min >60 [facility] Comment on above: Non- GFR Calc 12.9 SECONDS 11.7-14.9 [facility] Platelet mean volume Jm-Ec ker (Bld) [Entitic vol]Ordered By: Dominic Méndez on 03-23-2023 Platelet mean volume (Bld) [Entitic vol] 10.1 fL 6.2-12.0 [facility] RBC Auto (Bld) [#/Vol]Ordere d By: Dominic Méndez on 03-23-2023 RBC (Bld) [#/Vol] 5.07 10*6/uL 4.6-6.2 [facility] Respiratory pathogens detect ion panel by molecular detection methodOrdered By: Dominic Méndez on 03-23-2023 Respiratory pathogens DNA and RNA panel YAYO+probe (Resp) [facility] Respiratory pathogens DNA and RNA panel YAYO+probe (Resp) [facility] Serum or plasma calcium jacinta urement (mass/volume)Ordered By: Dominic Méndez on 03-23-2023 Calcium [Mass/Vol] 8.8 mg/dL 8.5-10.1 [facility] Serum or plasma creatinine m easurement (mass/volume)Ordered By: Dominic Méndez on 03-23-2023 Creatinine [Mass/Vol] 0.46 mg/dL 0.70-1.30 [facility] Comment on above: The validity of the calculated GFR & GFRAA in patients over 70 years has not been determined. Clinical correlation is essential. Serum or plasma urea nitroge n measurement (mass/volume)Ordered By: Dominic Méndez on 03-23-2023 Urea nitrogen [Mass/Vol] 21 mg/dL 7-18 [facility] Thin prep Papanicolaou smear with manual screeningOrdered By: Dominic Méndez on 03-23-2023 Thin prep Papanicolaou smear with manual screening 3.6 g/dL 3.2-5.0 [facility] Thin prep Papanicolaou smear with manual screening 16 U/L 15-37 [facility] Thin prep Papanicolaou smear with manual screening 5 5-15 [facility] Absolute lymphocyte countOrd ered By: Torey Huffman on 03-01-2023 Lymphocytes Auto (Unsp spec) [#/Vol] 2.53 10*3/uL 0.83-4.51 [facility] Basophil percentageOrdered B y: Torey Huffman on 03-01-2023 Basophil percentage 93 mg/dL 74-106 [facility] Basophil percentage 140 mmol/L 136-145 [facility] Basophil percentage 3.8 mmol/L 3.5-5.1 [facility] Basophil percentage 105 mmol/L 98-107 [facility] Basophils (Bld) [#/Vol] 7.0 10*3/uL 4.4-11.0 [facility] Basophils (Bld) [#/Vol] 3.5 10*3/uL 2.0-7.7 [facility] Basophils/100 WBC (Bld) 0.3 % 0-1 [facility] Basophils/100 WBC (Bld) 49.5 % 47-70 [facility] Basophils/100 WBC (Bld) 4.9 % 0-5 [facility] Chloride [Moles/Vol] 105 mmol/L 98-107 [facility] Eosinophils/100 WBC (Bld) 4.9 % 0-5 [facility] Glucose [Mass/Vol] 93 mg/dL 74-106 [facility] Neutrophils (Bld) [#/Vol] 3.5 10*3/uL 2.0-7.7 [facility] Neutrophils/100 WBC (Bld) 49.5 % 47-70 [facility] Potassium [Moles/Vol] 3.8 mmol/L 3.5-5.1 [facility] Sodium [Moles/Vol] 140 mmol/L 136-145 [facility] WBC (Bld) [#/Vol] 7.0 10*3/uL 4.4-11.0 [facility] Blood erythrocytes count (nu mber/volume)Ordered By: Torey Huffman on 03-01-2023 RBC (Bld) [#/Vol] 4.30 10*6/uL 4.6-6.2 [facility] Blood hemoglobin measurement (mass/volume)Ordered By: Torey Huffman on 03-01-2023 Hemoglobin (Bld) [Mass/Vol] 11.1 g/dL 13.0-16.5 [facility] Blood lymphocytes/100 leukoc ytesOrdered By: Torey Huffman on 03-01-2023 Lymphocytes/100 WBC (Bld) 36.3 % 19-41 [facility] Blood monocytes/100 leukocyt esOrdered By: Torey Huffman on 03-01-2023 Monocytes/100 WBC (Bld) 8.9 % 0-10 [facility] Blood platelet mean volumeOr dered By: Torey Huffman on 03-01-2023 Platelet mean volume (Bld) [Entitic vol] 11.0 fL 6.2-12.0 [facility] Determination of erythrocyte mean corpuscular volume (MCV)Ordered By: Torey Huffman on 03-01-2023 MCV (RBC) [Entitic vol] 83.5 fL 80-94 [facility] Hematocrit Auto (Bld) [Volum e fraction]Ordered By: Torey Huffman on 03-01-2023 Hematocrit (Bld) [Volume fraction] 35.9 % 40-54 [facility] Laboratory - Chemistry and C hemistry - challengeOrdered By: Torye Huffman on 03-01-2023 CO2 [Moles/Vol] 28.0 mmol/L 21.0-32.0 [facility] Urea nitrogen/Creatinine [Mass ratio] 60.6 mg/mg 10-20 [facility] Laboratory - Hematology and Cell countsOrdered By: Torey Huffman on 03-01-2023 Erythrocyte distribution width (RBC) [Entitic vol] 44.3 fL 35.1-43.9 [facility] Erythrocyte distribution width (RBC) [Ratio] 14.6 % 11.6-14.6 [facility] Immature granulocytes/100 WBC (Bld) 0.100 % 0.0-0.9 [facility] Comment on above: IG% - Immature Granu locytes (promyelocytes, myelocytes and metamyelocytes) > 1% indicates that a LEFT SHIFT is Present. MCH (RBC) [Entitic mass] 25.8 pg 27.0-32.0 [facility] Nucleated RBC/100 WBC (Bld) [Ratio] 0 % 0-5 [facility] MCHC Auto (RBC) [Mass/Vol]Or dered By: Torey Huffman on 03-01-2023 MCHC (RBC) [Mass/Vol] 30.9 g/dL 32-36 [facility] No Panel InformationOrdered By: Torey Huffman on 03-01-2023 Estimated GFR (MDRD) Amer 308 mL/min >60 [facility] Comment on above: GFR Calc Estimated GFR (MDRD) Non-Af Amer 255 mL/min >60 [facility] Comment on above: Non- GFR Calc 25.8 pg 27.0-32.0 [facility] 14.6 % 11.6-14.6 [facility] 44.3 fl 35.1-43.9 [facility] 0.100 % 0.0-0.9 [facility] 0 % 0-5 [facility] 255 mL/min >60 [facility] 308 mL/min >60 [facility] 60.6 RATIO 10-20 [facility] 28.0 mmol/L 21.0-32.0 [facility] Platelets bldOrdered By: Mellissa Huffman on 03-01-2023 Platelets (Bld) [#/Vol] 202 10*3/uL 150-450 [facility] Serum or plasma calcium jacinta urement (mass/volume)Ordered By: Torey Huffman on 03-01-2023 Calcium [Mass/Vol] 8.7 mg/dL 8.5-10.1 [facility] Serum or plasma creatinine m easurement (mass/volume)Ordered By: Torey Huffman on 03-01-2023 Creatinine [Mass/Vol] 0.40 mg/dL 0.70-1.30 [facility] Comment on above: The validity of the calculated GFR & GFRAA in patients over 70 years has not been determined. Clinical correlation is essential. Serum or plasma urea nitroge n measurement (mass/volume)Ordered By: Torey Huffman on 03-01-2023 Urea nitrogen [Mass/Vol] 24 mg/dL 7-18 [facility] Thin prep Papanicolaou smear with manual screeningOrdered By: Torey Huffman on 03-01-2023 Thin prep Papanicolaou smear with manual screening 7 5-15 [facility] Absolute lymphocyte countOrd ered By: Torey Huffman on 02-03-2023 Lymphocytes Auto (Unsp spec) [#/Vol] 2.02 10*3/uL 0.83-4.51 [facility] Basophil percentageOrdered B y: Torey Huffman on 02-03-2023 Basophil percentage 103 mg/dL 74-106 [facility] Basophil percentage 139 mmol/L 136-145 [facility] Basophil percentage 3.7 mmol/L 3.5-5.1 [facility] Basophil percentage 105 mmol/L 98-107 [facility] Basophils (Bld) [#/Vol] 5.9 10*3/uL 4.4-11.0 [facility] Basophils (Bld) [#/Vol] 3.0 10*3/uL 2.0-7.7 [facility] Basophils/100 WBC (Bld) 0.3 % 0-1 [facility] Basophils/100 WBC (Bld) 50.5 % 47-70 [facility] Basophils/100 WBC (Bld) 5.6 % 0-5 [facility] Chloride [Moles/Vol] 105 mmol/L 98-107 [facility] Eosinophils/100 WBC (Bld) 5.6 % 0-5 [facility] Glucose [Mass/Vol] 103 mg/dL 74-106 [facility] Comment on above: Fasting Glucose resu lt from 100 to 125 mg/dL suggests IMPAIRED HOMEOSTASIS per A.D.A. criteria. Neutrophils (Bld) [#/Vol] 3.0 10*3/uL 2.0-7.7 [facility] Neutrophils/100 WBC (Bld) 50.5 % 47-70 [facility] Potassium [Moles/Vol] 3.7 mmol/L 3.5-5.1 [facility] Sodium [Moles/Vol] 139 mmol/L 136-145 [facility] WBC (Bld) [#/Vol] 5.9 10*3/uL 4.4-11.0 [facility] Blood erythrocytes count (nu mber/volume)Ordered By: Torey Huffman on 02-03-2023 RBC (Bld) [#/Vol] 3.99 10*6/uL 4.6-6.2 [facility] Blood hemoglobin measurement (mass/volume)Ordered By: Torey Huffman on 02-03-2023 Hemoglobin (Bld) [Mass/Vol] 10.3 g/dL 13.0-16.5 [facility] Blood lymphocytes/100 leukoc ytesOrdered By: Torey Huffman on 02-03-2023 Lymphocytes/100 WBC (Bld) 34.4 % 19-41 [facility] Blood monocytes/100 leukocyt esOrdered By: Torey Huffman on 02-03-2023 Monocytes/100 WBC (Bld) 9.0 % 0-10 [facility] Blood platelet mean volumeOr dered By: Torey Huffman on 02-03-2023 Platelet mean volume (Bld) [Entitic vol] 11.0 fL 6.2-12.0 [facility] Determination of erythrocyte mean corpuscular volume (MCV)Ordered By: Torey Huffman on 02-03-2023 MCV (RBC) [Entitic vol] 83.0 fL 80-94 [facility] Hematocrit Auto (Bld) [Volum e fraction]Ordered By: Torey Huffman on 02-03-2023 Hematocrit (Bld) [Volume fraction] 33.1 % 40-54 [facility] Laboratory - Chemistry and C hemistry - challengeOrdered By: Torey Huffman on 02-03-2023 CO2 [Moles/Vol] 30.0 mmol/L 21.0-32.0 [facility] Urea nitrogen/Creatinine [Mass ratio] 51.6 mg/mg 10-20 [facility] Laboratory - Hematology and Cell countsOrdered By: Torey Huffman on 02-03-2023 Erythrocyte distribution width (RBC) [Entitic vol] 43.8 fL 35.1-43.9 [facility] Erythrocyte distribution width (RBC) [Ratio] 14.4 % 11.6-14.6 [facility] Immature granulocytes/100 WBC (Bld) 0.200 % 0.0-0.9 [facility] Comment on above: IG% - Immature Granu locytes (promyelocytes, myelocytes and metamyelocytes) > 1% indicates that a LEFT SHIFT is Present. MCH (RBC) [Entitic mass] 25.8 pg 27.0-32.0 [facility] Nucleated RBC/100 WBC (Bld) [Ratio] 0 % 0-5 [facility] MCHC Auto (RBC) [Mass/Vol]Or dered By: Torey Huffman on 02-03-2023 MCHC (RBC) [Mass/Vol] 31.1 g/dL 32-36 [facility] No Panel InformationOrdered By: Torey Huffman on 02-03-2023 Estimated GFR (MDRD) Amer 409 mL/min >60 [facility] Comment on above: GFR Calc Estimated GFR (MDRD) Non-Af Amer 338 mL/min >60 [facility] Comment on above: Non- GFR Calc 25.8 pg 27.0-32.0 [facility] 14.4 % 11.6-14.6 [facility] 43.8 fl 35.1-43.9 [facility] 0.200 % 0.0-0.9 [facility] 0 % 0-5 [facility] 338 mL/min >60 [facility] 409 mL/min >60 [facility] 51.6 RATIO 10-20 [facility] 30.0 mmol/L 21.0-32.0 [facility] Platelets bldOrdered By: Mellissa Huffman on 02-03-2023 Platelets (Bld) [#/Vol] 172 10*3/uL 150-450 [facility] Serum or plasma calcium jacinta urement (mass/volume)Ordered By: Torey Huffman on 02-03-2023 Calcium [Mass/Vol] 8.4 mg/dL 8.5-10.1 [facility] Serum or plasma creatinine m easurement (mass/volume)Ordered By: Torey Huffman on 02-03-2023 Creatinine [Mass/Vol] 0.31 mg/dL 0.70-1.30 [facility] Comment on above: The validity of the calculated GFR & GFRAA in patients over 70 years has not been determined. Clinical correlation is essential. Serum or plasma urea nitroge n measurement (mass/volume)Ordered By: Torey Huffman on 02-03-2023 Urea nitrogen [Mass/Vol] 16 mg/dL 7-18 [facility] Thin prep Papanicolaou smear with manual screeningOrdered By: Torey Huffman on 02-03-2023 Thin prep Papanicolaou smear with manual screening 4 5-15 [facility] Absolute lymphocyte countOrd ered By: Aemna Smith on 01-16-2023 Lymphocytes Auto (Unsp spec) [#/Vol] 1.47 10*3/uL 0.83-4.51 [facility] Basophil percentageOrdered B y: Amena Smith on 01-16-2023 Basophil percentage 0-5 SEEN /hpf 0-5 [facility] Basophil percentage 97 mg/dL 74-106 [facility] Basophil percentage 137 mmol/L 136-145 [facility] Basophil percentage 3.7 mmol/L 3.5-5.1 [facility] Basophil percentage 105 mmol/L 98-107 [facility] Basophil percentage 0.9 mmol/L 0.4-2.0 [facility] Basophils (Bld) [#/Vol] 8.7 10*3/uL 4.4-11.0 [facility] Basophils (Bld) [#/Vol] 6.6 10*3/uL 2.0-7.7 [facility] Basophils/100 WBC (Bld) 0.1 % 0-1 [facility] Basophils/100 WBC (Bld) 75.2 % 47-70 [facility] Basophils/100 WBC (Bld) 1.1 % 0-5 [facility] Chloride [Moles/Vol] 105 [facility]L 98-[facility] WBC (Bld) 1.1 % 0-5 [facility] Glucose [Mass/Vol] 97 mg/dL 74-106 [facility] Lactate [Moles/Vol] 0.9 mmol/L 0.4-2.0 [facility] Neutrophils (Bld) [#/Vol] 6.6 10*3/uL 2.0-7.7 [facility] Neutrophils/100 WBC (Bld) 75.2 % 47-70 [facility] Potassium [Moles/Vol] 3.7 mmol/L 3.5-5.1 [facility] Sodium [Moles/Vol] 137 mmol/L 136-145 [facility] WBC (Bld) [#/Vol] 8.7 10*3/uL 4.4-11.0 [facility] Bilirubin Test strip Ql (U)O rdered By: Amena Smith on 01-16-2023 Bilirubin Ql (U) Negative Negative [facility] Blood erythrocytes count (nu mber/volume)Ordered By: Amena Smith on 01-16-2023 RBC (Bld) [#/Vol] 4.46 10*6/uL 4.6-6.2 [facility] Blood hemoglobin measurement (mass/volume)Ordered By: Amena Smith on 01-16-2023 Hemoglobin (Bld) [Mass/Vol] 11.6 g/dL 13.0-16.5 [facility] Blood lymphocytes/100 leukoc ytesOrdered By: Amena Smith on 01-16-2023 Lymphocytes/100 WBC (Bld) 16.8 % 19-41 [facility] Blood monocytes/100 leukocyt esOrdered By: Amena Smith on 01-16-2023 Monocytes/100 WBC (Bld) 6.5 % 0-10 [facility] Blood platelet mean volumeOr dered By: Amena Smith on 01-16-2023 Platelet mean volume (Bld) [Entitic vol] 10.2 fL 6.2-12.0 [facility] Culture, urineOrdered By: Елена Smith on 01-16-2023 Bacteria identified Cx Nom (U) Culture exhibits no growth. [facility] Determination of erythrocyte mean corpuscular volume (MCV)Ordered By: Amena Smith on 01-16-2023 MCV (RBC) [Entitic vol] 84.1 fL 80-94 [facility] Hematocrit Auto (Bld) [Volum e fraction]Ordered By: Amena Smith on 01-16-2023 Hematocrit (Bld) [Volume fraction] 37.5 % 40-54 [facility] Influenza virus A and B and SARS-CoV-2 (COVID-19) Ag panel - Upper respiratory specimOrdered By: Amena Smith on 01-16-2023 SARS-CoV-2 (COVID-19) RNA YAYO+probe Ql (Resp) [facility] Ketones Test strip Ql (U)Ord ered By: Amena Smith on 01-16-2023 Ketones Ql (U) 5 mg/dl Negative [facility] Laboratory - Chemistry and C hemistry - challengeOrdered By: Amena Smith on 01-16-2023 CO2 [Moles/Vol] 28.0 mmol/L 21.0-32.0 [facility] Urea nitrogen/Creatinine [Mass ratio] 69.5 mg/mg 10-20 [facility] Laboratory - Hematology and Cell countsOrdered By: Amena Smith on 01-16-2023 Erythrocyte distribution width (RBC) [Entitic vol] 44.5 fL 35.1-43.9 [facility] Erythrocyte distribution width (RBC) [Ratio] 14.6 % 11.6-14.6 [facility] Immature granulocytes/100 WBC (Bld) 0.300 % 0.0-0.9 [facility] Comment on above: IG% - Immature Granu locytes (promyelocytes, myelocytes and metamyelocytes) > 1% indicates that a LEFT SHIFT is Present. MCH (RBC) [Entitic mass] 26.0 pg 27.0-32.0 [facility] Nucleated RBC/100 WBC (Bld) [Ratio] 0 % 0-5 [facility] Laboratory - Microbiology an d Antimicrobial susceptibilityOrdered By: Amena Smith on 01-16-2023 Bacteria identified Cx Nom (Bld) No growth in [address] [facility] MCHC Auto (RBC) [Mass/Vol]Or dered By: Amena Smith on 01-16-2023 MCHC (RBC) [Mass/Vol] 30.9 g/dL 32-36 [facility] Mucus LM Ql (Urine sed)Order ed By: Amena Smith on 01-16-2023 Mucus Ql (Urine sed) 0 SEEN /hpf [facility] Nitrite Test strip Ql (U)Ord ered By: Amena Smith on 01-16-2023 Nitrite Ql (U) Negative Negative [facility] No Panel InformationOrdered By: Amena Smith on 01-16-2023 No growth in [address] [facility] Estimated Creatinine Clearance Calc 231.48 ml/min [facility] Estimated GFR (MDRD) Amer 422 mL/min >60 [facility] Comment on above: GFR Calc Estimated GFR (MDRD) Non-Af Amer 349 mL/min >60 [facility] Comment on above: Non- GFR Calc 26.0 pg 27.0-32.0 [facility] 14.6 % 11.6-14.6 [facility] 44.5 fl 35.1-43.9 [facility] 0.300 % 0.0-0.9 [facility] 0 % 0-5 [facility] 349 mL/min >60 [facility] 422 mL/min >60 [facility] 231.48 ml/min [facility] 69.5 RATIO 10-20 [facility] 28.0 mmol/L 21.0-32.0 [facility] No Panel InformationOrdered By: Dalton Lester on 01-16-2023 Troponin I High Sensitivity 4 pg/mL 3.0-78.0 [facility] Comment on above: Please Note: New Suha t Units and Gender Specific Reference Ranges. For more information see Policy Stat Procedure [place] High Sensitivity Troponin (TNIH) and attachments. 4 pg/mL 3.0-78.0 [facility] Platelets bldOrdered By: Marjorie Smith on 01-16-2023 Platelets (Bld) [#/Vol] 206 10*3/uL 150-450 [facility] Protein Test strip Ql (U)Ord ered By: Amena Smith on 01-16-2023 Protein Ql (U) 30 mg/dl Negative [facility] Serum or plasma calcium jacinta urement (mass/volume)Ordered By: Amena Smith on 01-16-2023 Calcium [Mass/Vol] 8.3 mg/dL 8.5-10.1 [facility] Serum or plasma creatinine m easurement (mass/volume)Ordered By: Amena Smith on 01-16-2023 Creatinine [Mass/Vol] 0.30 mg/dL 0.70-1.30 [facility] Comment on above: The validity of the calculated GFR & GFRAA in patients over 70 years has not been determined. Clinical correlation is essential. Serum or plasma urea nitroge n measurement (mass/volume)Ordered By: Amena Smith on 01-16-2023 Urea nitrogen [Mass/Vol] 21 mg/dL 7-18 [facility] Squamous epithelial cells de tection in urine sediment by light microscopyOrdered By: Amena Smith on 01-16-2023 Epithelial cells.squamous LM Ql (Urine sed) 0 SEEN /hpf 0-5 [facility] Thin prep Papanicolaou smear with manual screeningOrdered By: Amena Smith on 01-16-2023 Thin prep Papanicolaou smear with manual screening 4 5-15 [facility] Upper respiratory specimen i nfluenza A virus, influenza B virus, and severe acute respiratory syndromOrdered By: Amena Smith on 01-16-2023 Upper respiratory specimen influenza A virus, influenza B virus, and severe acute respiratory syndrom [facility] Urine blood detectionOrdered By: Amena Smith on 01-16-2023 RBC Ql (U) 10 /ul Negative [facility] RBC Ql (U) 0 SEEN /hpf 0-5 [facility] Urine clarityOrdered By: Marjorie Smith on 01-16-2023 Clarity (U) Clear Clear [facility] Urine color determinationOrd ered By: Amena Smith on 01-16-2023 Color (U) Yellow Yellow [facility] Urine glucose detectionOrder ed By: Amena Smith on 01-16-2023 Glucose Ql (U) Normal mg/dl Normal [facility] Urine leukocyte esterase det ection by dipstickOrdered By: Amena Smith on 01-16-2023 Leukocyte esterase Test strip Ql (U) 25 /ul Negative [facility] Urine pHOrdered By: Amena simons on 01-16-2023 pH (U) 6.0 [pH] 5.0 - 8.0 [facility] Urine sediment bacteria coun t by microscopy (number/high power field)Ordered By: Amena Smith on 01-16-2023 Bacteria LM.HPF (Urine sed) [#/Area] 0 /[HPF] None Seen [facility] Urine specific gravity measu rementOrdered By: Amena Smith on 01-16-2023 Specific gravity (U) [Rel density] 1.025 1.002-1.030 [facility] Urobilinogen Auto test strip Ql (U)Ordered By: Amena Smith on 01-16-2023 Urobilinogen Ql (U) Normal mg/dl Normal [facility] Absolute lymphocyte countOrd ered By: Torey Huffman on 01-04-2023 Lymphocytes Auto (Unsp spec) [#/Vol] 2.04 10*3/uL 0.83-4.51 [facility] Basophil percentageOrdered B y: Torey Huffman on 01-04-2023 Basophil percentage 91 mg/dL 74-106 [facility] Basophil percentage 141 mmol/L 136-145 [facility] Basophil percentage 3.9 mmol/L 3.5-5.1 [facility] Basophil percentage 105 mmol/L 98-107 [facility] Basophils (Bld) [#/Vol] 6.9 10*3/uL 4.4-11.0 [facility] Basophils (Bld) [#/Vol] 3.9 10*3/uL 2.0-7.7 [facility] Basophils/100 WBC (Bld) 0.3 % 0-1 [facility] Basophils/100 WBC (Bld) 57.1 % 47-70 [facility] Basophils/100 WBC (Bld) 4.4 % 0-5 [facility] Chloride [Moles/Vol] 105 mmol/L 98-107 [facility] Eosinophils/100 WBC (Bld) 4.4 % 0-5 [facility] Glucose [Mass/Vol] 91 mg/dL 74-106 [facility] Neutrophils (Bld) [#/Vol] 3.9 10*3/uL 2.0-7.7 [facility] Neutrophils/100 WBC (Bld) 57.1 % 47-70 [facility] Potassium [Moles/Vol] 3.9 mmol/L 3.5-5.1 [facility] Sodium [Moles/Vol] 141 mmol/L 136-145 [facility] WBC (Bld) [#/Vol] 6.9 10*3/uL 4.4-11.0 [facility] Blood erythrocytes count (nu mber/volume)Ordered By: Torey Huffman on 01-04-2023 RBC (Bld) [#/Vol] 4.11 10*6/uL 4.6-6.2 [facility] Blood hemoglobin measurement (mass/volume)Ordered By: Torey Huffman on 01-04-2023 Hemoglobin (Bld) [Mass/Vol] 10.6 g/dL 13.0-16.5 [facility] Blood lymphocytes/100 leukoc ytesOrdered By: Torey Huffman on 01-04-2023 Lymphocytes/100 WBC (Bld) 29.7 % 19-41 [facility] Blood monocytes/100 leukocyt esOrdered By: Torey Huffman on 01-04-2023 Monocytes/100 WBC (Bld) 8.4 % 0-10 [facility] Blood platelet mean volumeOr dered By: Torey Huffman on 01-04-2023 Platelet mean volume (Bld) [Entitic vol] 10.3 fL 6.2-12.0 [facility] Determination of erythrocyte mean corpuscular volume (MCV)Ordered By: Torey Huffman on 01-04-2023 MCV (RBC) [Entitic vol] 84.9 fL 80-94 [facility] Hematocrit Auto (Bld) [Volum e fraction]Ordered By: Torey Huffman on 01-04-2023 Hematocrit (Bld) [Volume fraction] 34.9 % 40-54 [facility] Laboratory - Chemistry and C hemistry - challengeOrdered By: Torey Huffman on 01-04-2023 CO2 [Moles/Vol] 31.0 mmol/L 21.0-32.0 [facility] Urea nitrogen/Creatinine [Mass ratio] 65.4 mg/mg 10-20 [facility] Laboratory - Hematology and Cell countsOrdered By: Torey Huffman on 01-04-2023 Erythrocyte distribution width (RBC) [Entitic vol] 45.1 fL 35.1-43.9 [facility] Erythrocyte distribution width (RBC) [Ratio] 14.6 % 11.6-14.6 [facility] Immature granulocytes/100 WBC (Bld) 0.100 % 0.0-0.9 [facility] Comment on above: IG% - Immature Granu locytes (promyelocytes, myelocytes and metamyelocytes) > 1% indicates that a LEFT SHIFT is Present. MCH (RBC) [Entitic mass] 25.8 pg 27.0-32.0 [facility] Nucleated RBC/100 WBC (Bld) [Ratio] 0 % 0-5 [facility] MCHC Auto (RBC) [Mass/Vol]Or dered By: Torey Huffman on 01-04-2023 MCHC (RBC) [Mass/Vol] 30.4 g/dL 32-36 [facility] No Panel InformationOrdered By: Torey Huffman on 01-04-2023 Estimated GFR (MDRD) Amer 501 mL/min >60 [facility] Comment on above: GFR Calc Estimated GFR (MDRD) Non-Af Amer 414 mL/min >60 [facility] Comment on above: Non- GFR Calc 25.8 pg 27.0-32.0 [facility] 14.6 % 11.6-14.6 [facility] 45.1 fl 35.1-43.9 [facility] 0.100 % 0.0-0.9 [facility] 0 % 0-5 [facility] 414 mL/min >60 [facility] 501 mL/min >60 [facility] 65.4 RATIO 10-20 [facility] 31.0 mmol/L 21.0-32.0 [facility] Platelets bldOrdered By: Mellissa Huffman on 01-04-2023 Platelets (Bld) [#/Vol] 172 10*3/uL 150-450 [facility] Serum or plasma calcium jacinta urement (mass/volume)Ordered By: Torey Huffman on 01-04-2023 Calcium [Mass/Vol] 8.1 mg/dL 8.5-10.1 [facility] Serum or plasma creatinine m easurement (mass/volume)Ordered By: Torey Huffman on 01-04-2023 Creatinine [Mass/Vol] 0.26 mg/dL 0.70-1.30 [facility] Comment on above: The validity of the calculated GFR & GFRAA in patients over 70 years has not been determined. Clinical correlation is essential. Serum or plasma urea nitroge n measurement (mass/volume)Ordered By: Torey Huffman on 01-04-2023 Urea nitrogen [Mass/Vol] 17 mg/dL 7-18 [facility] Thin prep Papanicolaou smear with manual screeningOrdered By: Torey Huffman on 01-04-2023 Thin prep Papanicolaou smear with manual screening 5 5-15 [facility] Basophil percentageOrdered B y: Donte Abebe on 12-13-2022 Basophil percentage 116 mg/dL 74-106 [facility] Basophil percentage 141 mmol/L 136-145 [facility] Basophil percentage 3.4 mmol/L 3.5-5.1 [facility] Basophil percentage 109 mmol/L 98-107 [facility] Basophils (Bld) [#/Vol] 7.6 10*3/uL 4.4-11.0 [facility] Chloride [Moles/Vol] 109 mmol/L 98-107 [facility] Glucose [Mass/Vol] 116 mg/dL 74-106 [facility] Comment on above: Fasting Glucose resu lt from 100 to 125 mg/dL suggests IMPAIRED HOMEOSTASIS per A.D.A. criteria. Potassium [Moles/Vol] 3.4 mmol/L 3.5-5.1 [facility] Sodium [Moles/Vol] 141 mmol/L 136-145 [facility] WBC (Bld) [#/Vol] 7.6 10*3/uL 4.4-11.0 [facility] Blood erythrocytes count (nu mber/volume)Ordered By: Donte Abebe on 12-13-2022 RBC (Bld) [#/Vol] 3.74 10*6/uL 4.6-6.2 [facility] Blood hemoglobin measurement (mass/volume)Ordered By: Donte Abebe on 12-13-2022 Hemoglobin (Bld) [Mass/Vol] 9.9 g/dL 13.0-16.5 [facility] Blood platelet mean volumeOr dered By: Donte Abebe on 12-13-2022 Platelet mean volume (Bld) [Entitic vol] 9.9 fL 6.2-12.0 [facility] Determination of erythrocyte mean corpuscular volume (MCV)Ordered By: Donte Abebe on 12-13-2022 MCV (RBC) [Entitic vol] 87.4 fL 80-94 [facility] Hematocrit Auto (Bld) [Volum e fraction]Ordered By: Donte Abebe on 12-13-2022 Hematocrit (Bld) [Volume fraction] 32.7 % 40-54 [facility] Laboratory - Chemistry and C hemistry - challengeOrdered By: Donte Abebe on 12-13-2022 CO2 [Moles/Vol] 27.0 mmol/L 21.0-32.0 [facility] Urea nitrogen/Creatinine [Mass ratio] 47.2 mg/mg 12-11 [facility] Laboratory - Hematology and Cell countsOrdered By: Donte Abebe on 12-13-2022 Erythrocyte distribution width (RBC) [Entitic vol] 46.0 fL 35.1-43.9 [facility] Erythrocyte distribution width (RBC) [Ratio] 14.4 % 11.6-14.6 [facility] MCH (RBC) [Entitic mass] 26.5 pg 27.0-32.0 [facility] MCHC Auto (RBC) [Mass/Vol]Or dered By: Donte Abebe on 12-13-2022 MCHC (RBC) [Mass/Vol] 30.3 g/dL 32-36 [facility] No Panel InformationOrdered By: Donte Abebe on 12-13-2022 Estimated Creatinine Clearance Calc 277.78 ml/min [facility] Estimated GFR (MDRD) Amer 515 mL/min >60 [facility] Comment on above: GFR Calc Estimated GFR (MDRD) Non-Af Amer 426 mL/min >60 [facility] Comment on above: Non- GFR Calc 26.5 pg 27.0-32.0 [facility] 14.4 % 11.6-14.6 [facility] 46.0 fl 35.1-43.9 [facility] 426 mL/min >60 [facility] 515 mL/min >60 [facility] 277.78 ml/min [facility] 47.2 RATIO 12-11 [facility] 27.0 mmol/L 21.0-32.0 [facility] Platelets bldOrdered By: Sho Abebe on 12-13-2022 Platelets (Bld) [#/Vol] 166 10*3/uL 150-450 [facility] Serum or plasma calcium jacinta urement (mass/volume)Ordered By: Donte Abebe on 12-13-2022 Calcium [Mass/Vol] 7.4 mg/dL 8.5-10.1 [facility] Serum or plasma creatinine m easurement (mass/volume)Ordered By: Donte Abebe on 12-13-2022 Creatinine [Mass/Vol] 0.25 mg/dL 0.70-1.30 [facility] Comment on above: The validity of the calculated GFR & GFRAA in patients over 70 years has not been determined. Clinical correlation is essential. Serum or plasma urea nitroge n measurement (mass/volume)Ordered By: Donte Abebe on 12-13-2022 Urea nitrogen [Mass/Vol] 12 mg/dL 7-18 [facility] Thin prep Papanicolaou smear with manual screeningOrdered By: Donte Abebe on 12-13-2022 Thin prep Papanicolaou smear with manual screening 5 5-15 [facility] Basophil percentageOrdered B y: Donte Abebe on 12-11-2022 Chloride [Moles/Vol] 111 mmol/L 98-107 [facility] Glucose [Mass/Vol] 101 mg/dL 74-106 [facility] Comment on above: Fasting Glucose resu lt from 100 to 125 mg/dL suggests IMPAIRED HOMEOSTASIS per A.D.A. criteria. Potassium [Moles/Vol] 2.8 mmol/L 3.5-5.1 [facility] Sodium [Moles/Vol] 144 mmol/L 136-145 [facility] WBC (Bld) [#/Vol] 7.6 10*3/uL 4.4-11.0 [facility] Blood erythrocytes count (nu mber/volume)Ordered By: Donte Abebe on 12-11-2022 RBC (Bld) [#/Vol] 3.90 10*6/uL 4.6-6.2 [facility] Blood hemoglobin measurement (mass/volume)Ordered By: Donte Abebe on 12-11-2022 Hemoglobin (Bld) [Mass/Vol] 10.3 g/dL 13.0-16.5 [facility] Blood platelet mean volumeOr dered By: Donte Abebe on 12-11-2022 Platelet mean volume (Bld) [Entitic vol] 9.9 fL 6.2-12.0 [facility] Determination of erythrocyte mean corpuscular volume (MCV)Ordered By: Donte Abebe on 12-11-2022 MCV (RBC) [Entitic vol] 85.9 fL 80-94 [facility] Hematocrit Auto (Bld) [Volum e fraction]Ordered By: Donte Abebe on 12-11-2022 Hematocrit (Bld) [Volume fraction] 33.5 % 40-54 [facility] Laboratory - Chemistry and C hemistry - challengeOrdered By: Donte Abebe on 12-11-2022 CO2 [Moles/Vol] 29.0 mmol/L 21.0-32.0 [facility] Urea nitrogen/Creatinine [Mass ratio] 69.8 mg/mg 12-11 [facility] Laboratory - Hematology and Cell countsOrdered By: Donte Abebe on 12-11-2022 Erythrocyte distribution width (RBC) [Entitic vol] 44.6 fL 35.1-43.9 [facility] Erythrocyte distribution width (RBC) [Ratio] 14.4 % 11.6-14.6 [facility] MCH (RBC) [Entitic mass] 26.4 pg 27.0-32.0 [facility] MCHC Auto (RBC) [Mass/Vol]Or dered By: Donte Abebe on 12-11-2022 MCHC (RBC) [Mass/Vol] 30.7 g/dL 32-36 [facility] No Panel InformationOrdered By: Donte Abebe on 12-11-2022 Estimated Creatinine Clearance Calc 267.09 ml/min [facility] Estimated GFR (MDRD) Amer 506 mL/min >60 [facility] Comment on above: GFR Calc Estimated GFR (MDRD) Non-Af Amer 418 mL/min >60 [facility] Comment on above: Non- GFR Calc Platelets bldOrdered By: Sho Abebe on 12-11-2022 Platelets (Bld) [#/Vol] 183 10*3/uL 150-450 [facility] Serum or plasma calcium jacinta urement (mass/volume)Ordered By: Donte Abebe on 12-11-2022 Calcium [Mass/Vol] 7.8 mg/dL 8.5-10.1 [facility] Serum or plasma creatinine m easurement (mass/volume)Ordered By: Donte Abebe on 12-11-2022 Creatinine [Mass/Vol] 0.26 mg/dL 0.70-1.30 [facility] Comment on above: The validity of the calculated GFR & GFRAA in patients over 70 years has not been determined. Clinical correlation is essential. Serum or plasma urea nitroge n measurement (mass/volume)Ordered By: Donte Abebe on 12-11-2022 Urea nitrogen [Mass/Vol] 18 mg/dL 7-18 [facility] Thin prep Papanicolaou smear with manual screeningOrdered By: Donte Abebe on 12-11-2022 Thin prep Papanicolaou smear with manual screening 4 5-15 [facility] Absolute lymphocyte countOrd ered By: Miky Pio on 12-10-2022 Lymphocytes Auto (Unsp spec) [#/Vol] 2.23 10*3/uL 0.83-4.51 [facility] Basophil percentageOrdered B y: Miky Rahman on 12-10-2022 Basophil percentage 8.7 g/dL 6.4-8.2 [facility] Basophil percentage 0.20 mg/dL 0.20-1.00 [facility] Basophils (Bld) [#/Vol] 8.4 10*3/uL 2.0-7.7 [facility] Basophils/100 WBC (Bld) 0.2 % 0-1 [facility] Basophils/100 WBC (Bld) 72.2 % 47-70 [facility] Basophils/100 WBC (Bld) 2.1 % 0-5 [facility] Bilirubin [Mass/Vol] 0.20 mg/dL 0.20-1.00 [facility] Comment on above: For patients on eltr ombopag therapy, use of Dimension [place] TBIL is not recommended. Chloride [Moles/Vol] 105 mmol/L 98-107 [facility] Eosinophils/100 WBC (Bld) 2.1 % 0-5 [facility] Glucose [Mass/Vol] 109 mg/dL 74-106 [facility] Comment on above: Fasting Glucose resu lt from 100 to 125 mg/dL suggests IMPAIRED HOMEOSTASIS per A.D.A. criteria. Neutrophils (Bld) [#/Vol] 8.4 10*3/uL 2.0-7.7 [facility] Neutrophils/100 WBC (Bld) 72.2 % 47-70 [facility] Potassium [Moles/Vol] 3.8 mmol/L 3.5-5.1 [facility] Protein [Mass/Vol] 8.7 g/dL 6.4-8.2 [facility] Sodium [Moles/Vol] 140 mmol/L 136-145 [facility] WBC (Bld) [#/Vol] 11.6 10*3/uL 4.4-11.0 [facility] Blood erythrocytes count (nu mber/volume)Ordered By: Miky Rahman on 12-10-2022 RBC (Bld) [#/Vol] 4.77 10*6/uL 4.6-6.2 [facility] Blood hemoglobin measurement (mass/volume)Ordered By: Miky Rahman on 12-10-2022 Hemoglobin (Bld) [Mass/Vol] 12.6 g/dL 13.0-16.5 [facility] Blood lymphocytes/100 leukoc ytesOrdered By: Miky Rahman on 12-10-2022 Lymphocytes/100 WBC (Bld) 19.2 % 19-41 [facility] Blood monocytes/100 leukocyt esOrdered By: iMky Rahman on 12-10-2022 Monocytes/100 WBC (Bld) 5.9 % 0-10 [facility] Blood platelet mean volumeOr dered By: Miky Rahman on 12-10-2022 Platelet mean volume (Bld) [Entitic vol] 10.0 fL 6.2-12.0 [facility] Determination of erythrocyte mean corpuscular volume (MCV)Ordered By: Miky Rahman on 12-10-2022 MCV (RBC) [Entitic vol] 83.4 fL 80-94 [facility] Hematocrit Auto (Bld) [Volum e fraction]Ordered By: Miky Rahman on 12-10-2022 Hematocrit (Bld) [Volume fraction] 39.8 % 40-54 [facility] INR in Blood by Coagulation assayOrdered By: Miky Rahman on 12-10-2022 INR Coag (Bld) [Relative time] 1.0 {INR} [facility] Laboratory - Chemistry and C hemistry - challengeOrdered By: Miky Rahman on 12-10-2022 ALP [Catalytic activity/Vol] 144 U/L 45-117 [facility] ALT [Catalytic activity/Vol] 29 U/L 16-61 [facility] CO2 [Moles/Vol] 29.0 mmol/L 21.0-32.0 [facility] Globulin (S) [Mass/Vol] 5.4 g/dL 2.2-4.2 [facility] Lipase [Catalytic activity/Vol] 58 U/L 13-75 [facility] Comment on above: Please note:LIPASE r evised reference range effective 22. New Lipase methodology. Expected to produce lower values than the previous assay method. NEW Reference Range: 13 - 75 U/L Urea nitrogen/Creatinine [Mass ratio] 45.3 mg/mg 10-20 [facility] Laboratory - CoagulationOrde red By: Miky Rahman on 12-10-2022 aPTT Coag (Bld) [Time] 35.6 s 24.1-36.2 [facility] PT Coag (PPP) [Time] 13.4 s 11.7-14.9 [facility] Laboratory - Hematology and Cell countsOrdered By: Miky Rahman on 12-10-2022 Erythrocyte distribution width (RBC) [Entitic vol] 42.8 fL 35.1-43.9 [facility] Erythrocyte distribution width (RBC) [Ratio] 14.0 % 11.6-14.6 [facility] Immature granulocytes/100 WBC (Bld) 0.400 % 0.0-0.9 [facility] Comment on above: IG% - Immature Granu locytes (promyelocytes, myelocytes and metamyelocytes) > 1% indicates that a LEFT SHIFT is Present. MCH (RBC) [Entitic mass] 26.4 pg 27.0-32.0 [facility] Nucleated RBC/100 WBC (Bld) [Ratio] 0 % 0-5 [facility] MCHC Auto (RBC) [Mass/Vol]Or dered By: Miky Rahman on 12-10-2022 MCHC (RBC) [Mass/Vol] 31.7 g/dL 32-36 [facility] No Panel InformationOrdered By: Miky Rahman on 12-10-2022 Estimated Creatinine Clearance Calc 198.41 ml/min [facility] Estimated GFR (MDRD) Amer 352 mL/min >60 [facility] Comment on above: GFR Calc Estimated GFR (MDRD) Non-Af Amer 291 mL/min >60 [facility] Comment on above: Non- GFR Calc 0.400 % 0.0-0.9 [facility] 0 % 0-5 [facility] 13.4 SECONDS 11.7-14.9 [facility] 35.6 Seconds 24.1-36.2 [facility] 5.4 g/dL 2.2-4.2 [facility] 58 U/L 13-75 [facility] 144 U/L 45-117 [facility] 29 U/L 16-61 [facility] Platelets bldOrdered By: Maximus Rahman on 12-10-2022 Platelets (Bld) [#/Vol] 228 10*3/uL 150-450 [facility] Serum or plasma albumin jacinta urement (mass/volume)Ordered By: Miky Rahman on 12-10-2022 Albumin [Mass/Vol] 3.3 g/dL 3.2-5.0 [facility] Serum or plasma albumin/glob ulin mass ratioOrdered By: Miky Rahman on 12-10-2022 Albumin/Globulin [Mass ratio] 0.6 {ratio} 0.9-2.4 [facility] Serum or plasma calcium jacinta urement (mass/volume)Ordered By: Miky Rahman on 12-10-2022 Calcium [Mass/Vol] 8.6 mg/dL 8.5-10.1 [facility] Serum or plasma creatinine m easurement (mass/volume)Ordered By: Miky Rahman on 12-10-2022 Creatinine [Mass/Vol] 0.35 mg/dL 0.70-1.30 [facility] Comment on above: The validity of the calculated GFR & GFRAA in patients over 70 years has not been determined. Clinical correlation is essential. Serum or plasma urea nitroge n measurement (mass/volume)Ordered By: Miky Rahman on 12-10-2022 Urea nitrogen [Mass/Vol] 16 mg/dL 7-18 [facility] Thin prep Papanicolaou smear with manual screeningOrdered By: Miky Rahman on 12-10-2022 Thin prep Papanicolaou smear with manual screening 19 U/L 15-37 [facility] Thin prep Papanicolaou smear with manual screening 6 5-15 [facility] Absolute lymphocyte countOrd ered By: Torey Huffman on 12-07-2022 Lymphocytes Auto (Unsp spec) [#/Vol] 2.35 10*3/uL 0.83-4.51 [facility] Basophil percentageOrdered B y: Torey Huffman on 12-07-2022 Basophil percentage 100 mg/dL 74-106 [facility] Basophil percentage 139 mmol/L 136-145 [facility] Basophil percentage 3.5 mmol/L 3.5-5.1 [facility] Basophil percentage 104 mmol/L 98-107 [facility] Basophils (Bld) [#/Vol] 6.7 10*3/uL 4.4-11.0 [facility] Basophils (Bld) [#/Vol] 3.4 10*3/uL 2.0-7.7 [facility] Basophils/100 WBC (Bld) 0.3 % 0-1 [facility] Basophils/100 WBC (Bld) 50.3 % 47-70 [facility] Basophils/100 WBC (Bld) 5.3 % 0-5 [facility] [employer] Chloride [Moles/Vol] 104 mmol/L 98-107 [facility] Eosinophils/100 WBC (Bld) 5.3 % 0-5 [facility] Glucose [Mass/Vol] 100 mg/dL 74-106 [facility] Comment on above: Fasting Glucose resu lt from 100 to 125 mg/dL suggests IMPAIRED HOMEOSTASIS per A.D.A. criteria. Neutrophils (Bld) [#/Vol] 3.4 10*3/uL 2.0-7.7 [facility] Neutrophils/100 WBC (Bld) 50.3 % 47-70 [facility] Potassium [Moles/Vol] 3.5 mmol/L 3.5-5.1 [facility] Sodium [Moles/Vol] 139 mmol/L 136-145 [facility] WBC (Bld) [#/Vol] 6.7 10*3/uL 4.4-11.0 [facility] Blood erythrocytes count (nu mber/volume)Ordered By: Torey Huffman on 12-07-2022 RBC (Bld) [#/Vol] 4.10 10*6/uL 4.6-6.2 [facility] Blood hemoglobin measurement (mass/volume)Ordered By: Torey Huffman on 12-07-2022 Hemoglobin (Bld) [Mass/Vol] 10.8 g/dL 13.0-16.5 [facility] Blood lymphocytes/100 leukoc ytesOrdered By: Torey Huffman on 12-07-2022 Lymphocytes/100 WBC (Bld) 34.9 % 19-41 [facility] Blood monocytes/100 leukocyt esOrdered By: Torey Huffman on 12-07-2022 Monocytes/100 WBC (Bld) 8.9 % 0-10 [facility] [employer] [employer] Blood platelet mean volumeOr dered By: Torey Huffman on 12-07-2022 Platelet mean volume (Bld) [Entitic vol] 10.7 fL 6.2-12.0 [facility] Determination of erythrocyte mean corpuscular volume (MCV)Ordered By: Torey Huffman on 12-07-2022 MCV (RBC) [Entitic vol] 86.3 fL 80-94 [facility] Hematocrit Auto (Bld) [Volum e fraction]Ordered By: Torey Huffman on 12-07-2022 Hematocrit (Bld) [Volume fraction] 35.4 % 40-54 [facility] Laboratory - Chemistry and C hemistry - challengeOrdered By: Torey Huffman on 12-07-2022 CO2 [Moles/Vol] 30.0 mmol/L 21.0-32.0 [facility] Urea nitrogen/Creatinine [Mass ratio] 58.1 mg/mg 10-20 [facility] Laboratory - Hematology and Cell countsOrdered By: Torey Huffman on 12-07-2022 Erythrocyte distribution width (RBC) [Entitic vol] 43.8 fL 35.1-43.9 [facility] Erythrocyte distribution width (RBC) [Ratio] 13.9 % 11.6-14.6 [facility] Immature granulocytes/100 WBC (Bld) 0.300 % 0.0-0.9 [facility] Comment on above: IG% - Immature Granu locytes (promyelocytes, myelocytes and metamyelocytes) > 1% indicates that a LEFT SHIFT is Present. MCH (RBC) [Entitic mass] 26.3 pg 27.0-32.0 [facility] Nucleated RBC/100 WBC (Bld) [Ratio] 0 % 0-[address] [facility] ([facility]) [Mass/Vol]Or dered By: Torey Huffman on 12-07-2022 MCHC (RBC) [Mass/Vol] 30.5 g/dL 32-36 [facility] No Panel InformationOrdered By: Torey Huffman on 12-07-2022 Estimated GFR (MDRD) Amer 385 mL/min >60 [facility] Comment on above: GFR Calc Estimated GFR (MDRD) Non-Af Amer 318 mL/min >60 [facility] Comment on above: Non- GFR Calc 26.3 pg 27.0-32.0 [facility] 13.9 % 11.6-14.6 [facility] 43.8 fl 35.1-43.9 [facility] 0.300 % 0.0-0.9 [facility] 0 % 0-5 [facility] 318 mL/min >60 [facility] 385 mL/min >60 [facility] 58.1 RATIO 10-20 [facility] 30.0 mmol/L 21.0-32.0 [facility] Platelets bldOrdered By: Mellissa Huffman on 12-07-2022 Platelets (Bld) [#/Vol] 208 10*3/uL 150-450 [facility] Serum or plasma calcium jacinta urement (mass/volume)Ordered By: Torey Huffman on 12-07-2022 Calcium [Mass/Vol] 8.3 mg/dL 8.5-10.1 [facility] Serum or plasma creatinine m easurement (mass/volume)Ordered By: Torey Huffman on 12-07-2022 Creatinine [Mass/Vol] 0.33 mg/dL 0.70-1.30 [facility] Comment on above: The validity of the calculated GFR & GFRAA in patients over 70 years has not been determined. Clinical correlation is essential. Serum or plasma urea nitroge n measurement (mass/volume)Ordered By: Torey Huffman on 12-07-2022 Urea nitrogen [Mass/Vol] 19 mg/dL 7-18 [facility] Thin prep Papanicolaou smear with manual screeningOrdered By: Torey Huffman on 10-16-2023 Thin prep Papanicolaou smear with manual screening 5 5-15 [facility] Absolute lymphocyte countOrd ered By: Torey Huffman on 11-12-2022 Lymphocytes Auto (Unsp spec) [#/Vol] 2.33 10*3/uL 0.83-4.51 [facility] Basophil percentageOrdered B y: Torey Huffman on 11-12-2022 Basophils/100 WBC (Bld) 0.1 % 0-1 [facility] Chloride [Moles/Vol] 104 mmol/L 98-107 [facility] Eosinophils/100 WBC (Bld) 4.2 % 0-5 [facility] Glucose [Mass/Vol] 99 mg/dL 74-106 [facility] Neutrophils (Bld) [#/Vol] 4.4 10*3/uL 2.0-7.7 [facility] Neutrophils/100 WBC (Bld) 56.0 % 47-70 [facility] Potassium [Moles/Vol] 3.6 mmol/L 3.5-5.1 [facility] Sodium [Moles/Vol] 140 mmol/L 136-145 [facility] WBC (Bld) [#/Vol] 7.8 10*3/uL 4.4-11.0 [facility] Blood erythrocytes count (nu mber/volume)Ordered By: Torey Huffman on 11-12-2022 RBC (Bld) [#/Vol] 4.11 10*6/uL 4.6-6.2 [facility] Blood hemoglobin measurement (mass/volume)Ordered By: Torey Huffman on 11-12-2022 Hemoglobin (Bld) [Mass/Vol] 10.9 g/dL 13.0-16.5 [facility] Blood lymphocytes/100 leukoc ytesOrdered By: Torey Huffman on 11-12-2022 Lymphocytes/100 WBC (Bld) 29.7 % 19-41 [facility] Blood monocytes/100 leukocyt esOrdered By: Torey Huffman on 11-12-2022 Monocytes/100 WBC (Bld) 9.7 % 0-10 [facility] Blood platelet mean volumeOr dered By: Torey Huffman on 11-12-2022 Platelet mean volume (Bld) [Entitic vol] 10.3 fL 6.2-12.0 [facility] Determination of erythrocyte mean corpuscular volume (MCV)Ordered By: Torey Huffman on 11-12-2022 MCV (RBC) [Entitic vol] 86.6 fL 80-94 [facility] Hematocrit Auto (Bld) [Volum e fraction]Ordered By: Torey Huffman on 11-12-2022 Hematocrit (Bld) [Volume fraction] 35.6 % 40-54 [facility] Laboratory - Chemistry and C hemistry - challengeOrdered By: Torey Huffman on 11-12-2022 CO2 [Moles/Vol] 31.0 mmol/L 21.0-32.0 [facility] Urea nitrogen/Creatinine [Mass ratio] 81.1 mg/mg 10-20 [facility] Laboratory - Hematology and Cell countsOrdered By: Torey Huffman on 11-12-2022 Erythrocyte distribution width (RBC) [Entitic vol] 43.8 fL 35.1-43.9 [facility] Erythrocyte distribution width (RBC) [Ratio] 13.9 % 11.6-14.6 [facility] Immature granulocytes/100 WBC (Bld) 0.300 % 0.0-0.9 [facility] Comment on above: IG% - Immature Granu locytes (promyelocytes, myelocytes and metamyelocytes) > 1% indicates that a LEFT SHIFT is Present. MCH (RBC) [Entitic mass] 26.5 pg 27.0-32.0 [facility] Nucleated RBC/100 WBC (Bld) [Ratio] 0 % 0-5 [facility] MCHC Auto (RBC) [Mass/Vol]Or dered By: Torey Huffman on 11-12-2022 MCHC (RBC) [Mass/Vol] 30.6 g/dL 32-36 [facility] No Panel InformationOrdered By: Torey Huffman on 11-12-2022 Estimated GFR (MDRD) Amer 743 mL/min >60 [facility] Comment on above: GFR Calc Estimated GFR (MDRD) Non-Af Amer 614 mL/min >60 [facility] Comment on above: Non- GFR Calc Platelets bldOrdered By: Mellissa Huffman on 11-12-2022 Platelets (Bld) [#/Vol] 212 10*3/uL 150-450 [facility] Serum or plasma calcium jacinta urement (mass/volume)Ordered By: Torey Huffman on 11-12-2022 Calcium [Mass/Vol] 8.4 mg/dL 8.5-10.1 [facility] Serum or plasma creatinine m easurement (mass/volume)Ordered By: Torey Huffman on 11-12-2022 Creatinine [Mass/Vol] 0.18 mg/dL 0.70-1.30 [facility] Comment on above: The validity of the calculated GFR & GFRAA in patients over 70 years has not been determined. Clinical correlation is essential. Serum or plasma urea nitroge n measurement (mass/volume)Ordered By: Torey Huffman on 11-12-2022 Urea nitrogen [Mass/Vol] 15 mg/dL 7-18 [facility] Thin prep Papanicolaou smear with manual screeningOrdered By: Torey Huffman on 11-12-2022 Thin prep Papanicolaou smear with manual screening 5 5-15 [facility] Absolute lymphocyte countOrd ered By: Torey Huffman on 10-14-2022 Lymphocytes Auto (Unsp spec) [#/Vol] 2.10 10*3/uL 0.83-4.51 [facility] Basophil percentageOrdered B y: Torey Huffman on 10-14-2022 Basophils/100 WBC (Bld) 0.3 % 0-1 [facility] Chloride [Moles/Vol] 103 mmol/L 98-107 [facility] Eosinophils/100 WBC (Bld) 3.8 % 0-5 [facility] Glucose [Mass/Vol] 87 mg/dL 74-106 [facility] Neutrophils (Bld) [#/Vol] 3.5 10*3/uL 2.0-7.7 [facility] Neutrophils/100 WBC (Bld) 54.4 % 47-70 [facility] Potassium [Moles/Vol] 3.5 mmol/L 3.5-5.1 [facility] Sodium [Moles/Vol] 137 mmol/L 136-145 [facility] WBC (Bld) [#/Vol] 6.4 10*3/uL 4.4-11.0 [facility] Blood erythrocytes count (nu mber/volume)Ordered By: Torey Huffman on 10-14-2022 RBC (Bld) [#/Vol] 4.11 10*6/uL 4.6-6.2 [facility] Blood hemoglobin measurement (mass/volume)Ordered By: Torey Huffman on 10-14-2022 Hemoglobin (Bld) [Mass/Vol] 11.2 g/dL 13.0-16.5 [facility] Blood lymphocytes/100 leukoc ytesOrdered By: Torey Huffman on 10-14-2022 Lymphocytes/100 WBC (Bld) 32.9 % 19-41 [facility] Blood monocytes/100 leukocyt esOrdered By: Torey Huffman on 10-14-2022 Monocytes/100 WBC (Bld) 8.3 % 0-10 [facility] Blood platelet mean volumeOr dered By: Torey Huffman on 10-14-2022 Platelet mean volume (Bld) [Entitic vol] 10.3 fL 6.2-12.0 [facility] Determination of erythrocyte mean corpuscular volume (MCV)Ordered By: Torey Huffman on 10-14-2022 MCV (RBC) [Entitic vol] 83.2 fL 80-94 [facility] Hematocrit Auto (Bld) [Volum e fraction]Ordered By: Torey Huffman on 10-14-2022 Hematocrit (Bld) [Volume fraction] 34.2 % 40-54 [facility] Laboratory - Chemistry and C hemistry - challengeOrdered By: Torey Huffman on 10-14-2022 CO2 [Moles/Vol] 28.0 mmol/L 21.0-32.0 [facility] Urea nitrogen/Creatinine [Mass ratio] 48.4 mg/mg 10-20 [facility] Laboratory - Hematology and Cell countsOrdered By: Torey Huffman on 10-14-2022 Erythrocyte distribution width (RBC) [Entitic vol] 41.8 fL 35.1-43.9 [facility] Erythrocyte distribution width (RBC) [Ratio] 13.7 % 11.6-14.6 [facility] Immature granulocytes/100 WBC (Bld) 0.300 % 0.0-0.9 [facility] Comment on above: IG% - Immature Granu locytes (promyelocytes, myelocytes and metamyelocytes) > 1% indicates that a LEFT SHIFT is Present. MCH (RBC) [Entitic mass] 27.3 pg 27.0-32.0 [facility] Nucleated RBC/100 WBC (Bld) [Ratio] 0 % 0-5 [facility] MCHC Auto (RBC) [Mass/Vol]Or dered By: Torey Huffman on 10-14-2022 MCHC (RBC) [Mass/Vol] 32.7 g/dL 32-36 [facility] No Panel InformationOrdered By: Torey Huffman on 10-14-2022 Estimated GFR (MDRD) Amer 444 mL/min >60 [facility] Comment on above: GFR Calc Estimated GFR (MDRD) Non-Af Amer 367 mL/min >60 [facility] Comment on above: Non- GFR Calc Platelets bldOrdered By: Mellissa Huffman on 10-14-2022 Platelets (Bld) [#/Vol] 211 10*3/uL 150-450 [facility] Serum or plasma calcium jacinta urement (mass/volume)Ordered By: Torey Huffman on 10-14-2022 Calcium [Mass/Vol] 8.6 mg/dL 8.5-10.1 [facility] Serum or plasma creatinine m easurement (mass/volume)Ordered By: Torey Huffman on 10-14-2022 Creatinine [Mass/Vol] 0.29 mg/dL 0.70-1.30 [facility] Comment on above: The validity of the calculated GFR & GFRAA in patients over 70 years has not been determined. Clinical correlation is essential. Serum or plasma urea nitroge n measurement (mass/volume)Ordered By: Torey Huffman on 10-14-2022 Urea nitrogen [Mass/Vol] 14 mg/dL 7-18 [facility] Thin prep Papanicolaou smear with manual screeningOrdered By: Torey Huffman on 10-14-2022 Thin prep Papanicolaou smear with manual screening 6 5-15 [facility] Absolute lymphocyte countOrd ered By: Chente Conn on 09-14-2022 Lymphocytes Auto (Unsp spec) [#/Vol] 1.95 10*3/uL 0.83-4.51 [facility] Basophil percentageOrdered B y: Chente Conn on 09-14-2022 Basophil percentage 21.5 ug/mL 10.0-40.0 [facility] Basophils/100 WBC (Bld) 0.3 % 0-1 [facility] Chloride [Moles/Vol] 104 mmol/L 98-107 [facility] Eosinophils/100 WBC (Bld) 3.7 % 0-5 [facility] Glucose [Mass/Vol] 91 mg/dL 74-106 [facility] Neutrophils (Bld) [#/Vol] 3.3 10*3/uL 2.0-7.7 [facility] Neutrophils/100 WBC (Bld) 54.7 % 47-70 [facility] Potassium [Moles/Vol] 4.0 mmol/L 3.5-5.1 [facility] Sodium [Moles/Vol] 138 mmol/L 136-145 [facility] WBC (Bld) [#/Vol] 6.0 10*3/uL 4.4-11.0 [facility] Blood erythrocytes count (nu mber/volume)Ordered By: Chente Conn on 09-14-2022 RBC (Bld) [#/Vol] 3.87 10*6/uL 4.6-6.2 [facility] Blood hemoglobin measurement (mass/volume)Ordered By: Chente Conn on 09-14-2022 Hemoglobin (Bld) [Mass/Vol] 10.5 g/dL 13.0-16.5 [facility] Blood lymphocytes/100 leukoc ytesOrdered By: Chente Conn on 09-14-2022 Lymphocytes/100 WBC (Bld) 32.4 % 19-41 [facility] Blood monocytes/100 leukocyt esOrdered By: Chente Conn on 09-14-2022 Monocytes/100 WBC (Bld) 8.7 % 0-10 [facility] Blood platelet mean volumeOr dered By: Chente Conn on 09-14-2022 Platelet mean volume (Bld) [Entitic vol] 10.2 fL 6.2-12.0 [facility] Determination of erythrocyte mean corpuscular volume (MCV)Ordered By: Chente Conn on 09-14-2022 MCV (RBC) [Entitic vol] 86.8 fL 80-94 [facility] Hematocrit Auto (Bld) [Volum e fraction]Ordered By: Chente Conn on 09-14-2022 Hematocrit (Bld) [Volume fraction] 33.6 % 40-54 [facility] Laboratory - Chemistry and C hemistry - challengeOrdered By: Chente Conn on 09-14-2022 CO2 [Moles/Vol] 30.0 mmol/L 21.0-32.0 [facility] Urea nitrogen/Creatinine [Mass ratio] 65.6 mg/mg 10-20 [facility] Laboratory - Hematology and Cell countsOrdered By: Chente Conn on 09-14-2022 Erythrocyte distribution width (RBC) [Entitic vol] 44.9 fL 35.1-43.9 [facility] Erythrocyte distribution width (RBC) [Ratio] 14.1 % 11.6-14.6 [facility] Immature granulocytes/100 WBC (Bld) 0.200 % 0.0-0.9 [facility] Comment on above: IG% - Immature Granu locytes (promyelocytes, myelocytes and metamyelocytes) > 1% indicates that a LEFT SHIFT is Present. MCH (RBC) [Entitic mass] 27.1 pg 27.0-32.0 [facility] Nucleated RBC/100 WBC (Bld) [Ratio] 0 % 0-5 [facility] MCHC Auto (RBC) [Mass/Vol]Or dered By: Chente Conn on 09-14-2022 MCHC (RBC) [Mass/Vol] 31.3 g/dL 32-36 [facility] No Panel InformationOrdered By: Chente Conn on 09-14-2022 Estimated GFR (MDRD) Amer 540 mL/min >60 [facility] Comment on above: GFR Calc Estimated GFR (MDRD) Non-Af Amer 447 mL/min >60 [facility] Comment on above: Non- GFR Calc Platelets bldOrdered By: Darwin Conn on 09-14-2022 Platelets (Bld) [#/Vol] 197 10*3/uL 150-450 [facility] Serum or plasma calcium jacinta urement (mass/volume)Ordered By: Chente Conn on 09-14-2022 Calcium [Mass/Vol] 8.2 mg/dL 8.5-10.1 [facility] Serum or plasma creatinine m easurement (mass/volume)Ordered By: Chente Conn on 09-14-2022 Creatinine [Mass/Vol] 0.24 mg/dL 0.70-1.30 [facility] Comment on above: The validity of the calculated GFR & GFRAA in patients over 70 years has not been determined. Clinical correlation is essential. Serum or plasma urea nitroge n measurement (mass/volume)Ordered By: Chente Conn on 09-14-2022 Urea nitrogen [Mass/Vol] 16 mg/dL 7-18 [facility] Thin prep Papanicolaou smear with manual screeningOrdered By: Chente Conn on 09-14-2022 Thin prep Papanicolaou smear with manual screening 4 5-15 [facility] Absolute lymphocyte countOrd ered By: Torey Huffman on 08-17-2022 Lymphocytes Auto (Unsp spec) [#/Vol] 2.34 10*3/uL 0.83-4.51 [facility] Basophil percentageOrdered B y: Torey Huffman on 08-17-2022 Basophils/100 WBC (Bld) 0.3 % 0-1 [facility] Chloride [Moles/Vol] 103 mmol/L 98-107 [facility] Eosinophils/100 WBC (Bld) 3.6 % 0-5 [facility] Glucose [Mass/Vol] 87 mg/dL 74-106 [facility] Neutrophils (Bld) [#/Vol] 2.9 10*3/uL 2.0-7.7 [facility] Neutrophils/100 WBC (Bld) 47.8 % 47-70 [facility] Potassium [Moles/Vol] 3.9 mmol/L 3.5-5.1 [facility] Sodium [Moles/Vol] 137 mmol/L 136-145 [facility] WBC (Bld) [#/Vol] 6.1 10*3/uL 4.4-11.0 [facility] Blood erythrocytes count (nu mber/volume)Ordered By: Torey Huffman on 08-17-2022 RBC (Bld) [#/Vol] 3.97 10*6/uL 4.6-6.2 [facility] Blood hemoglobin measurement (mass/volume)Ordered By: Torey Huffman on 08-17-2022 Hemoglobin (Bld) [Mass/Vol] 10.9 g/dL 13.0-16.5 [facility] Blood lymphocytes/100 leukoc ytesOrdered By: Torey Huffman on 08-17-2022 Lymphocytes/100 WBC (Bld) 38.1 % 19-41 [facility] Blood monocytes/100 leukocyt esOrdered By: Torey Huffman on 08-17-2022 Monocytes/100 WBC (Bld) 9.9 % 0-10 [facility] Blood platelet mean volumeOr dered By: Torey Huffman on 08-17-2022 Platelet mean volume (Bld) [Entitic vol] 10.0 fL 6.2-12.0 [facility] Determination of erythrocyte mean corpuscular volume (MCV)Ordered By: Torey Huffman on 08-17-2022 MCV (RBC) [Entitic vol] 86.1 fL 80-94 [facility] Hematocrit Auto (Bld) [Volum e fraction]Ordered By: Torey Huffman on 08-17-2022 Hematocrit (Bld) [Volume fraction] 34.2 % 40-54 [facility] Laboratory - Chemistry and C hemistry - challengeOrdered By: Torey Huffman on 08-17-2022 CO2 [Moles/Vol] 29.0 mmol/L 21.0-32.0 [facility] Urea nitrogen/Creatinine [Mass ratio] 51.6 mg/mg 10-20 [facility] Laboratory - Hematology and Cell countsOrdered By: Torey Huffman on 08-17-2022 Erythrocyte distribution width (RBC) [Entitic vol] 42.5 fL 35.1-43.9 [facility] Erythrocyte distribution width (RBC) [Ratio] 13.6 % 11.6-14.6 [facility] Immature granulocytes/100 WBC (Bld) 0.300 % 0.0-0.9 [facility] Comment on above: IG% - Immature Granu locytes (promyelocytes, myelocytes and metamyelocytes) > 1% indicates that a LEFT SHIFT is Present. MCH (RBC) [Entitic mass] 27.5 pg 27.0-32.0 [facility] Nucleated RBC/100 WBC (Bld) [Ratio] 0 % 0-5 [facility] MCHC Auto (RBC) [Mass/Vol]Or dered By: Torey Huffman on 08-17-2022 MCHC (RBC) [Mass/Vol] 31.9 g/dL 32-36 [facility] No Panel InformationOrdered By: Torey Huffman on 08-17-2022 Estimated GFR (MDRD) Amer 410 mL/min >60 [facility] Comment on above: GFR Calc Estimated GFR (MDRD) Non-Af Amer 339 mL/min >60 [facility] Comment on above: Non- GFR Calc Platelets bldOrdered By: Mellissa Huffman on 08-17-2022 Platelets (Bld) [#/Vol] 194 10*3/uL 150-450 [facility] Serum or plasma calcium jacinta urement (mass/volume)Ordered By: Torey Huffman on 08-17-2022 Calcium [Mass/Vol] 8.7 mg/dL 8.5-10.1 [facility] Serum or plasma creatinine m easurement (mass/volume)Ordered By: Torey Huffman on 08-17-2022 Creatinine [Mass/Vol] 0.31 mg/dL 0.70-1.30 [facility] Comment on above: The validity of the calculated GFR & GFRAA in patients over 70 years has not been determined. Clinical correlation is essential. Serum or plasma urea nitroge n measurement (mass/volume)Ordered By: Torey Huffman on 08-17-2022 Urea nitrogen [Mass/Vol] 16 mg/dL 7-18 [facility] Thin prep Papanicolaou smear with manual screeningOrdered By: Torey Huffman on 08-17-2022 Thin prep Papanicolaou smear with manual screening 5 5-15 [facility] Absolute lymphocyte countOrd ered By: Torey Huffman on 07-22-2022 Lymphocytes Auto (Unsp spec) [#/Vol] 2.12 10*3/uL 0.83-4.51 [facility] Basophil percentageOrdered B y: Torey Huffman on 07-22-2022 Basophils/100 WBC (Bld) 0.3 % 0-1 [facility] Eosinophils/100 WBC (Bld) 4.9 % 0-5 [facility] Neutrophils (Bld) [#/Vol] 2.9 10*3/uL 2.0-7.7 [facility] Neutrophils/100 WBC (Bld) 49.2 % 47-70 [facility] WBC (Bld) [#/Vol] 5.9 10*3/uL 4.4-11.0 [facility] Basophil percentageOrdered B y: Chente Conn on 07-22-2022 Chloride [Moles/Vol] 102 mmol/L 98-107 [facility] Glucose [Mass/Vol] 80 mg/dL 74-106 [facility] Potassium [Moles/Vol] 3.9 mmol/L 3.5-5.1 [facility] Sodium [Moles/Vol] 139 mmol/L 136-145 [facility] Blood erythrocytes count (nu mber/volume)Ordered By: Torey Huffman on 07-22-2022 RBC (Bld) [#/Vol] 3.96 10*6/uL 4.6-6.2 [facility] Blood hemoglobin measurement (mass/volume)Ordered By: Torey Huffman on 07-22-2022 Hemoglobin (Bld) [Mass/Vol] 11.1 g/dL 13.0-16.5 [facility] Blood lymphocytes/100 leukoc ytesOrdered By: Torey Huffman on 07-22-2022 Lymphocytes/100 WBC (Bld) 35.9 % 19-41 [facility] Blood monocytes/100 leukocyt esOrdered By: Torey Huffman on 07-22-2022 Monocytes/100 WBC (Bld) 9.5 % 0-10 [facility] Blood platelet mean volumeOr dered By: Torey Huffman on 07-22-2022 Platelet mean volume (Bld) [Entitic vol] 9.9 fL 6.2-12.0 [facility] Determination of erythrocyte mean corpuscular volume (MCV)Ordered By: Torey Huffman on 07-22-2022 MCV (RBC) [Entitic vol] 84.8 fL 80-94 [facility] Hematocrit Auto (Bld) [Volum e fraction]Ordered By: Torey Huffman on 07-22-2022 Hematocrit (Bld) [Volume fraction] 33.6 % 40-54 [facility] Laboratory - Chemistry and C hemistry - challengeOrdered By: Chente Conn on 07-22-2022 CO2 [Moles/Vol] 30.0 mmol/L 21.0-32.0 [facility] Urea nitrogen/Creatinine [Mass ratio] 36.2 mg/mg 10-20 [facility] Laboratory - Hematology and Cell countsOrdered By: Torey Huffman on 07-22-2022 Erythrocyte distribution width (RBC) [Entitic vol] 42.1 fL 35.1-43.9 [facility] Erythrocyte distribution width (RBC) [Ratio] 13.5 % 11.6-14.6 [facility] Immature granulocytes/100 WBC (Bld) 0.200 % 0.0-0.9 [facility] Comment on above: IG% - Immature Granu locytes (promyelocytes, myelocytes and metamyelocytes) > 1% indicates that a LEFT SHIFT is Present. MCH (RBC) [Entitic mass] 28.0 pg 27.0-32.0 [facility] Nucleated RBC/100 WBC (Bld) [Ratio] 0 % 0-5 [facility] MCHC Auto (RBC) [Mass/Vol]Or dered By: Torey Huffman on 07-22-2022 MCHC (RBC) [Mass/Vol] 33.0 g/dL 32-36 [facility] No Panel InformationOrdered By: Chente Conn on 07-22-2022 Estimated GFR (MDRD) Amer 346 mL/min >60 [facility] Comment on above: GFR Calc Estimated GFR (MDRD) Non-Af Amer 286 mL/min >60 [facility] Comment on above: Non- GFR Calc Platelets bldOrdered By: Mellissa Huffman on 07-22-2022 Platelets (Bld) [#/Vol] 171 10*3/uL 150-450 [facility] Serum or plasma calcium jacinta urement (mass/volume)Ordered By: Chente Conn on 07-22-2022 Calcium [Mass/Vol] 8.6 mg/dL 8.5-10.1 [facility] Serum or plasma creatinine m easurement (mass/volume)Ordered By: Chente Conn on 07-22-2022 Creatinine [Mass/Vol] 0.36 mg/dL 0.70-1.30 [facility] Comment on above: The validity of the calculated GFR & GFRAA in patients over 70 years has not been determined. Clinical correlation is essential. Serum or plasma urea nitroge n measurement (mass/volume)Ordered By: Chente Conn on 07-22-2022 Urea nitrogen [Mass/Vol] 13 mg/dL 7-18 [facility] Thin prep Papanicolaou smear with manual screeningOrdered By: Chente Conn on 07-22-2022 Thin prep Papanicolaou smear with manual screening 7 5-15 [facility] CNPNon 06-30-2022 [facility] Telephone ([facility]) -------- KRISS MICHAEL ([id number]) 1980 M Date Time Provider Department 06/30/22 STOMA THERAPY [facility] During your visit today, we recorded the following information about you: Amber Monreal RN 06/30/2022 3:53 PM Signed [phone] Pt's mother called. She would like to discuss pt's stoma prolapse. Chichi Fowler RN 06/30/2022 4:48 PM Signed [facility] nursing returned patient's mother Yue message [...] e-mail. Mother will give order numbers to [facility]. Also recommended can apply stomahesive powder on [...] [R50.9] 01/13/2013 (more content not included)... Normal [facility] Absolute lymphocyte countOrd ered By: Dr. De La Rosa on 06-22-2022 Lymphocytes Auto (Unsp spec) [#/Vol] 1.42 10*3/uL 0.83-4.51 [facility] Basophil percentageOrdered B y: Dr. De La Rosa on 06-22-2022 Basophil percentage 0-5 SEEN /hpf 0-5 [facility] Basophil percentage 82 mg/dL 74-106 [facility] Basophil percentage 7.2 g/dL 6.4-8.2 [facility] Basophil percentage 0.10 mg/dL 0.20-1.00 [facility] Basophil percentage 139 mmol/L 136-145 [facility] Basophil percentage 3.5 mmol/L 3.5-5.1 [facility] Basophil percentage 107 mmol/L 98-107 [facility] Basophil percentage 1.3 mmol/L 0.4-2.0 [facility] Basophils (Bld) [#/Vol] 6.6 10*3/uL 4.4-11.0 [facility] Basophils (Bld) [#/Vol] 4.5 10*3/uL 2.0-7.7 [facility] Basophils/100 WBC (Bld) 67.2 % 47-70 [facility] Basophils/100 WBC (Bld) 2.4 % 0-5 [facility] Basophils/100 WBC (Bld) 0.2 % 0-1 [facility] Basophil percentageOrdered B y: Siddharth De La Rosa on 06-22-2022 Bilirubin [Mass/Vol] 0.10 mg/dL 0.20-1.[address] [facility] Comment on above: For patients on eltr ombopag therapy, use of Dimension [place] TBIL is not recommended. Chloride [Moles/Vol] 107 mmol/L 98-107 [facility] Eosinophils/100 WBC (Bld) 2.4 % 0-5 [facility] Glucose [Mass/Vol] 82 mg/dL 74-106 [facility] Lactate [Moles/Vol] 1.3 mmol/L 0.4-2.0 [facility] Neutrophils (Bld) [#/Vol] 4.5 10*3/uL 2.0-7.7 [facility] Neutrophils/100 WBC (Bld) 67.2 % 47-70 [facility] Potassium [Moles/Vol] 3.5 mmol/L 3.5-5.1 [facility] Protein [Mass/Vol] 7.2 g/dL 6.4-8.2 [facility] Sodium [Moles/Vol] 139 mmol/L 136-145 [facility] WBC (Bld) [#/Vol] 6.6 10*3/uL 4.4-11.0 [facility] Bilirubin Test strip Ql (U)O rdered By: Dr. De La Rosa on 06-22-2022 Bilirubin Ql (U) Negative Negative [facility] Blood erythrocytes count (nu mber/volume)Ordered By: Dr. De La Rosa on 06-22-2022 RBC (Bld) [#/Vol] 4.21 10*6/uL 4.6-6.2 [facility] Blood hemoglobin measurement (mass/volume)Ordered By: Dr. De La Rosa on 06-22-2022 Hemoglobin (Bld) [Mass/Vol] 11.5 g/dL 13.0-16.5 [facility] Blood lymphocytes/100 leukoc ytesOrdered By: Dr. De La Rosa on 06-22-2022 Lymphocytes/100 WBC (Bld) 21.5 % 19-41 [facility] Blood monocytes/100 leukocyt esOrdered By: Dr. De La Rosa on 06-22-2022 Monocytes/100 WBC (Bld) 8.5 % 0-10 [facility] Blood platelet mean volumeOr dered By: Dr. De La Rosa on 06-22-2022 Platelet mean volume (Bld) [Entitic vol] 10.0 fL 6.2-12.0 [facility] Culture, urineOrdered By: Daina De La Rosa on 06-22-2022 Bacteria identified Cx Nom (U) Culture exhibits no growth. [facility] Determination of erythrocyte mean corpuscular volume (MCV)Ordered By: Dr. De La Rosa on 06-22-2022 MCV (RBC) [Entitic vol] 86.7 fL 80-94 [facility] Hematocrit Auto (Bld) [Volum e fraction]Ordered By: Dr. De La Rosa on 06-22-2022 Hematocrit (Bld) [Volume fraction] 36.5 % 40-54 [facility] INR in Blood by Coagulation assayOrdered By: Dr. De La Rosa on 06-22-2022 INR Coag (Bld) [Relative time] 1.0 {INR} [facility] Ketones Test strip Ql (U)Ord ered By: Dr. De La Rosa on 06-22-2022 Ketones Ql (U) 5 mg/dl Negative [facility] Laboratory - Chemistry and C hemistry - challengeOrdered By: Siddharth De La Rosa on 06-22-2022 ALP [Catalytic activity/Vol] 135 U/L 45-117 [facility] ALT [Catalytic activity/Vol] 19 U/L 16-61 [facility] CO2 [Moles/Vol] 25.0 mmol/L 21.0-32.0 [facility] Globulin (S) [Mass/Vol] 4.3 g/dL 2.2-4.2 [facility] Urea nitrogen/Creatinine [Mass ratio] 48.6 mg/mg 10-20 [facility] Laboratory - CoagulationOrde red By: Siddharth De La Rosa on 06-22-2022 aPTT Coag (Bld) [Time] 31.6 s 24.1-36.2 [facility] PT Coag (PPP) [Time] 13.0 s 11.7-14.9 [facility] Laboratory - Hematology and Cell countsOrdered By: Siddharth De La Rosa on 06-22-2022 Erythrocyte distribution width (RBC) [Entitic vol] 45.2 fL 35.1-43.9 [facility] Erythrocyte distribution width (RBC) [Ratio] 14.3 % 11.6-14.6 [facility] Immature granulocytes/100 WBC (Bld) 0.200 % 0.0-0.9 [facility] Comment on above: IG% - Immature Granu locytes (promyelocytes, myelocytes and metamyelocytes) > 1% indicates that a LEFT SHIFT is Present. MCH (RBC) [Entitic mass] 27.3 pg 27.0-32.0 [facility] Nucleated RBC/100 WBC (Bld) [Ratio] 0 % 0-5 [facility] Laboratory - Microbiology an d Antimicrobial susceptibilityOrdered By: Siddharth De La Rosa on 06-22-2022 Bacteria identified Cx Nom (Bld) No growth in [address] [facility] MCHC Auto (RBC) [Mass/Vol]Or dered By: Dr. De La Rosa on 06-22-2022 MCHC (RBC) [Mass/Vol] 31.5 g/dL 32-36 [facility] Mucus LM Ql (Urine sed)Order ed By: Dr. De La Rosa on 06-22-2022 Mucus Ql (Urine sed) 0 SEEN /hpf [facility] Nitrite Test strip Ql (U)Ord ered By: Dr. De La Rosa on 06-22-2022 Nitrite Ql (U) Negative Negative [facility] No Panel InformationOrdered By: Siddharth De La Rosa on 06-22-2022 Estimated Creatinine Clearance Calc 366.58 ml/min [facility] Estimated GFR (MDRD) Amer 383 mL/min >60 [facility] Comment on above: GFR Calc Estimated GFR (MDRD) Non-Af Amer 317 mL/min >60 [facility] Comment on above: Non- GFR Calc No Panel InformationOrdered By: Dr. De La Rosa on 06-22-2022 27.3 pg 27.0-32.0 [facility] 14.3 % 11.6-14.6 [facility] 45.2 fl 35.1-43.9 [facility] 0.200 % 0.0-0.9 [facility] 0 % 0-5 [facility] 13.0 SECONDS 11.7-14.9 [facility] 31.6 Seconds 24.1-36.2 [facility] 317 mL/min >60 [facility] 383 mL/min >60 [facility] 366.58 ml/min [facility] 48.6 RATIO 10-20 [facility] 4.3 g/dL 2.2-4.2 [facility] 135 U/L 45-117 [facility] 19 U/L 16-61 [facility] 25.0 mmol/L 21.0-32.0 [facility] Platelets bldOrdered By: Dr. De La Rosa on 06-22-2022 Platelets (Bld) [#/Vol] 202 10*3/uL 150-450 [facility] Protein Test strip Ql (U)Ord ered By: Dr. De La Rosa on 06-22-2022 Protein Ql (U) 30 mg/dl Negative [facility] Serum or plasma albumin jacinta urement (mass/volume)Ordered By: Dr. De La Rosa on 06-22-2022 Albumin [Mass/Vol] 2.9 g/dL 3.2-5.0 [facility] Serum or plasma albumin/glob ulin mass ratioOrdered By: Dr. De La Rosa on 06-22-2022 Albumin/Globulin [Mass ratio] 0.7 {ratio} 0.9-2.4 [facility] Serum or plasma calcium jacinta urement (mass/volume)Ordered By: Dr. De La Rosa on 06-22-2022 Calcium [Mass/Vol] 7.6 mg/dL 8.5-10.1 [facility] Serum or plasma creatinine m easurement (mass/volume)Ordered By: Dr. De La Rosa on 06-22-2022 Creatinine [Mass/Vol] 0.33 mg/dL 0.70-1.30 [facility] Comment on above: The validity of the calculated GFR & GFRAA in patients over 70 years has not been determined. Clinical correlation is essential. Serum or plasma urea nitroge n measurement (mass/volume)Ordered By: Dr. De La Rosa on 06-22-2022 Urea nitrogen [Mass/Vol] 16 mg/dL 7-18 [facility] Squamous epithelial cells de tection in urine sediment by light microscopyOrdered By: Dr. De La Rosa on 06-22-2022 Epithelial cells.squamous LM Ql (Urine sed) 0-5 SEEN /hpf 0-5 [facility] Thin prep Papanicolaou smear with manual screeningOrdered By: Dr. De La Rosa on 05-01-2023 Thin prep Papanicolaou smear with manual screening 16 U/L 15-37 [facility] Thin prep Papanicolaou smear with manual screening 7 5-15 [facility] Urine blood detectionOrdered By: Dr. De La Rosa on 06-22-2022 RBC Ql (U) Negative Negative [facility] RBC Ql (U) 0 SEEN /hpf 0-5 [facility] Urine clarityOrdered By: Dr. De La Rosa on 06-22-2022 Clarity (U) Sl Cldy Clear [facility] Urine color determinationOrd ered By: Dr. De La Rosa on 06-22-2022 Color (U) Yellow Yellow [facility] Urine glucose detectionOrder ed By: Dr. De La Rosa on 06-22-2022 Glucose Ql (U) Normal mg/dl Normal [facility] Urine leukocyte esterase det ection by dipstickOrdered By: Dr. De La Rosa on 06-22-2022 Leukocyte esterase Test strip Ql (U) 25 /ul Negative [facility] Urine pHOrdered By: Dr. Lianne vieira on 06-22-2022 pH (U) 8.0 [pH] 5.0 - 8.0 [facility] Urine sediment bacteria coun t by microscopy (number/high power field)Ordered By: Dr. De La Rosa on 06-22-2022 Bacteria LM.HPF (Urine sed) [#/Area] 0 /[HPF] None Seen [facility] Urine specific gravity measu rementOrdered By: Dr. De La Rosa on 06-22-2022 Specific gravity (U) [Rel density] 1.010 1.002-1.030 [facility] Urobilinogen Auto test strip Ql (U)Ordered By: Dr. De La Rosa on 06-22-2022 Urobilinogen Ql (U) Normal mg/dl Normal [facility] CNNURSEon 06-15-2022 CNNURSE Nurse Visit (JAYNA) -------- KRISS MICHAEL ([id number]) 1980 Date Time Provider Department 06/15/22 2:00 PM STOMA THERAPY [facility] During your visit today, we recorded the following information about you: Cassie Cui RN 06/15/2022 3:50 PM Addendum The [address] [address] Patient: Kriss Michael Patient Address: [address] [place] [address] Dr Araujo [facility] Preferred Gender: male Date of : 1980 Type of Stoma: End Descending Colostomy Diagnosis: Constipation K59.0 OSTOMY SUPPLY ORDER FORM Coloplast SenSura Grabill MAXI Drainable Pouch with Soft Outlet Transparent Cut-to-fit 4 #[id number] 30 day use - 1 Box [employer]oplast Bed Drainage Bag #[id number] 30 day use-2 bags 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 Leavitt For immediate authorization, please contact the physician?s office. [facility] Nurse: VALERIANO Peters, CWOCN Addendum by: VALERIANO Virgen, CWOCN SIGNATURE: Cassie Cui RN PATIENT NAME: Kriss Michael DATE: June 15, 2022 TIME: 3:34 PM CONTACT #: [phone] Cassie Cui RN 06/15/2022 6:05 PM Signed [...] Requested samples from [employer] for Coloplast SenSura Grabill MAXI Drainable pouch with soft outlet #11385. Order form provided. Also discussed use of [...] effluent Current pouching system: Jazzmine Cohesive StomaWrap, [place] New Image flat flange with tape collar (cutting surface up to 3 1/2), high volume output pouch Current wearing time: 1 day Recommendations: Skin Care: Apply ConvaTec Stomahesive powder to irritated or denuded skin, brush away excess. 3M No sting skin barrier film. Pouching System: After reducing prolapse, applied [place] Hollihesive long wedges to peristomal skin, Coloplast [...] Inject intravenou (more content not included)... Normal [facility] Absolute lymphocyte countOrd ered By: Dr. Munoz on 06-12-2022 Lymphocytes Auto (Unsp spec) [#/Vol] 2.18 10*3/uL 0.83-4.51 [facility] Basophil percentageOrdered B y: Dr. Munoz on 06-12-2022 Basophil percentage 90 mg/dL 74-106 [facility] Basophil percentage 135 mmol/L 136-145 [facility] Basophil percentage 3.7 mmol/L 3.5-5.1 [facility] Basophil percentage 103 mmol/L 98-107 [facility] Basophils (Bld) [#/Vol] 6.1 10*3/uL 4.4-11.0 [facility] Basophils (Bld) [#/Vol] 3.1 10*3/uL 2.0-7.7 [facility] Basophils/100 WBC (Bld) 0.5 % 0-1 [facility] Basophils/100 WBC (Bld) 50.9 % 47-70 [facility] Basophils/100 WBC (Bld) 3.3 % 0-5 [facility] Chloride [Moles/Vol] 103 mmol/L 98-107 [facility] Eosinophils/100 WBC (Bld) 3.3 % 0-5 [facility] Glucose [Mass/Vol] 90 mg/dL 74-106 [facility] Neutrophils (Bld) [#/Vol] 3.1 10*3/uL 2.0-7.7 [facility] Neutrophils/100 WBC (Bld) 50.9 % 47-70 [facility] Potassium [Moles/Vol] 3.7 mmol/L 3.5-5.1 [facility] Sodium [Moles/Vol] 135 mmol/L 136-145 [facility] WBC (Bld) [#/Vol] 6.1 10*3/uL 4.4-11.0 [facility] Blood erythrocytes count (nu mber/volume)Ordered By: Dr. Munoz on 06-12-2022 RBC (Bld) [#/Vol] 4.08 10*6/uL 4.6-6.2 [facility] Blood hemoglobin measurement (mass/volume)Ordered By: Dr. Munoz on 06-12-2022 Hemoglobin (Bld) [Mass/Vol] 11.2 g/dL 13.0-16.5 [facility] Blood lymphocytes/100 leukoc ytesOrdered By: Dr. Munoz on 06-12-2022 Lymphocytes/100 WBC (Bld) 35.9 % 19-41 [facility] Blood monocytes/100 leukocyt esOrdered By: Dr. Munoz on 06-12-2022 Monocytes/100 WBC (Bld) 8.1 % 0-10 [facility] Blood platelet mean volumeOr dered By: Dr. Munoz on 06-12-2022 Platelet mean volume (Bld) [Entitic vol] 9.8 fL 6.2-12.0 [facility] Determination of erythrocyte mean corpuscular volume (MCV)Ordered By: Dr. Munoz on 06-12-2022 MCV (RBC) [Entitic vol] 85.0 fL 80-94 [facility] Hematocrit Auto (Bld) [Volum e fraction]Ordered By: Dr. Munoz on 06-12-2022 Hematocrit (Bld) [Volume fraction] 34.7 % 40-54 [facility] Influenza virus A and B and SARS-CoV-2 (COVID-19) Ag panel - Upper respiratory specimOrdered By: Naveen Munoz on 06-12-2022 SARS-CoV-2 (COVID-19) RNA YAYO+probe Ql (Resp) [facility] Influenza virus A and B and SARS-CoV-2 (COVID-19) Ag panel - Upper respiratory specimOrdered By: Dr. Munoz on 06-12-2022 SARS-CoV-2 (COVID-19) RNA YAYO+probe Ql (Resp) [facility] Laboratory - Chemistry and C hemistry - challengeOrdered By: Dr. Munoz on 06-12-2022 CO2 [Moles/Vol] 28.0 mmol/L 21.0-32.0 [facility] Urea nitrogen/Creatinine [Mass ratio] 38.9 mg/mg 10-20 [facility] Laboratory - Hematology and Cell countsOrdered By: Dr. Munoz on 06-12-2022 Erythrocyte distribution width (RBC) [Entitic vol] 45.3 fL 35.1-43.9 [facility] Erythrocyte distribution width (RBC) [Ratio] 14.5 % 11.6-14.6 [facility] Immature granulocytes/100 WBC (Bld) 1.300 % 0.0-0.9 [facility] Comment on above: IG% - Immature Granu locytes (promyelocytes, myelocytes and metamyelocytes) > 1% indicates that a LEFT SHIFT is Present. MCH (RBC) [Entitic mass] 27.5 pg 27.0-32.0 [facility] Nucleated RBC/100 WBC (Bld) [Ratio] 0 % 0-5 [facility] MCHC Auto (RBC) [Mass/Vol]Or dered By: Dr. Munoz on 06-12-2022 MCHC (RBC) [Mass/Vol] 32.3 g/dL 32-36 [facility] No Panel InformationOrdered By: Dr. Munoz on 06-12-2022 Estimated Creatinine Clearance Calc 381.94 ml/min [facility] Estimated GFR (MDRD) Amer 456 mL/min >60 [facility] Comment on above: GFR Calc Estimated GFR (MDRD) Non-Af Amer 377 mL/min >60 [facility] Comment on above: Non- GFR Calc Troponin I High Sensitivity < 3 pg/mL 3.0-78.0 [facility] Comment on above: Please Note: New Suha t Units and Gender Specific Reference Ranges. For more information see Policy Stat Procedure [place] High Sensitivity Troponin (TNIH) and attachments. 27.5 pg 27.0-32.0 [facility] 14.5 % 11.6-14.6 [facility] 45.3 fl 35.1-43.9 [facility] 1.300 % 0.0-0.9 [facility] 0 % 0-5 [facility] 377 mL/min >60 [facility] 456 mL/min >60 [facility] 381.94 ml/min [facility] 38.9 RATIO 10-20 [facility] < 3 pg/mL 3.0-78.0 [facility] 28.0 mmol/L 21.0-32.0 [facility] Platelets bldOrdered By: Dr. Munoz on 06-12-2022 Platelets (Bld) [#/Vol] 199 10*3/uL 150-450 [facility] Serum or plasma calcium jacinta urement (mass/volume)Ordered By: Dr. Munoz on 06-12-2022 Calcium [Mass/Vol] 8.8 mg/dL 8.5-10.1 [facility] Serum or plasma creatinine m easurement (mass/volume)Ordered By: Dr. Munoz on 06-12-2022 Creatinine [Mass/Vol] 0.28 mg/dL 0.70-1.30 [facility] Comment on above: The validity of the calculated GFR & GFRAA in patients over 70 years has not been determined. Clinical correlation is essential. Serum or plasma urea nitroge n measurement (mass/volume)Ordered By: Dr. Munoz on 06-12-2022 Urea nitrogen [Mass/Vol] 11 mg/dL 7-18 [facility] Thin prep Papanicolaou smear with manual screeningOrdered By: Dr. Munoz on 06-12-2022 Thin prep Papanicolaou smear with manual screening 4 5-15 [facility] Absolute lymphocyte countOrd ered By: Dr. Waite on 06-01-2022 Lymphocytes Auto (Unsp spec) [#/Vol] 2.20 10*3/uL 0.83-4.51 [facility] Basophil percentageOrdered B y: Dr. Waite on 06-01-2022 Basophil percentage 100 mg/dL 74-106 [facility] Basophil percentage 140 mmol/L 136-145 [facility] Basophil percentage 3.6 mmol/L 3.5-5.1 [facility] Basophil percentage 105 mmol/L 98-107 [facility] Basophils (Bld) [#/Vol] 5.2 10*3/uL 4.4-11.0 [facility] Basophils (Bld) [#/Vol] 2.2 10*3/uL 2.0-7.7 [facility] Basophils/100 WBC (Bld) 0.4 % 0-1 [facility] Basophils/100 WBC (Bld) 42.6 % 47-70 [facility] Basophils/100 WBC (Bld) 4.6 % 0-5 [facility] Chloride [Moles/Vol] 105 mmol/L 98-107 [facility] Eosinophils/100 WBC (Bld) 4.6 % 0-5 [facility] Glucose [Mass/Vol] 100 mg/dL 74-106 [facility] Comment on above: Fasting Glucose resu lt from 100 to 125 mg/dL suggests IMPAIRED HOMEOSTASIS per A.D.A. criteria. Neutrophils (Bld) [#/Vol] 2.2 10*3/uL 2.0-7.7 [facility] Neutrophils/100 WBC (Bld) 42.6 % 47-70 [facility] Potassium [Moles/Vol] 3.6 mmol/L 3.5-5.1 [facility] Sodium [Moles/Vol] 140 mmol/L 136-145 [facility] WBC (Bld) [#/Vol] 5.2 10*3/uL 4.4-11.0 [facility] Blood erythrocytes count (nu mber/volume)Ordered By: Dr. Waite on 06-01-2022 RBC (Bld) [#/Vol] 3.90 10*6/uL 4.6-6.2 [facility] Blood hemoglobin measurement (mass/volume)Ordered By: Dr. Waite on 06-01-2022 Hemoglobin (Bld) [Mass/Vol] 11.0 g/dL 13.0-16.5 [facility] Blood lymphocytes/100 leukoc ytesOrdered By: Dr. Waite on 06-01-2022 Lymphocytes/100 WBC (Bld) 42.5 % 19-41 [facility] Blood monocytes/100 leukocyt esOrdered By: Dr. Waite on 06-01-2022 Monocytes/100 WBC (Bld) 9.7 % 0-10 [facility] Blood platelet mean volumeOr dered By: Dr. Waite on 06-01-2022 Platelet mean volume (Bld) [Entitic vol] 10.1 fL 6.2-12.0 [facility] Determination of erythrocyte mean corpuscular volume (MCV)Ordered By: Dr. Waite on 06-01-2022 MCV (RBC) [Entitic vol] 86.4 fL 80-94 [facility] Hematocrit Auto (Bld) [Volum e fraction]Ordered By: Dr. Waite on 06-01-2022 Hematocrit (Bld) [Volume fraction] 33.7 % 40-54 [facility] Laboratory - Chemistry and C hemistry - challengeOrdered By: Dr. Waite on 06-01-2022 CO2 [Moles/Vol] 32.0 mmol/L 21.0-32.0 [facility] Urea nitrogen/Creatinine [Mass ratio] 46.0 mg/mg 10-20 [facility] Laboratory - Hematology and Cell countsOrdered By: Dr. Waite on 06-01-2022 Erythrocyte distribution width (RBC) [Entitic vol] 46.1 fL 35.1-43.9 [facility] Erythrocyte distribution width (RBC) [Ratio] 14.7 % 11.6-14.6 [facility] Immature granulocytes/100 WBC (Bld) 0.200 % 0.0-0.9 [facility] Comment on above: IG% - Immature Granu locytes (promyelocytes, myelocytes and metamyelocytes) > 1% indicates that a LEFT SHIFT is Present. MCH (RBC) [Entitic mass] 28.2 pg 27.0-32.0 [facility] Nucleated RBC/100 WBC (Bld) [Ratio] 0 % 0-5 [facility] Auto (RBC) [Mass/Vol]Or dered By: Dr. Waite on 06-01-2022 MCHC (RBC) [Mass/Vol] 32.6 g/dL 32-36 [facility] No Panel InformationOrdered By: Dr. Waite on 06-01-2022 Estimated GFR (MDRD) Amer 501 mL/min >60 [facility] Comment on above: GFR Calc Estimated GFR (MDRD) Non-Af Amer 414 mL/min >60 [facility] Comment on above: Non- GFR Calc 28.2 pg 27.0-32.0 [facility] 14.7 % 11.6-14.6 [facility] 46.1 fl 35.1-43.9 [facility] 0.200 % 0.0-0.9 [facility] 0 % 0-5 [facility] 414 mL/min >60 [facility] 501 mL/min >60 [facility] 46.0 RATIO 10-20 [facility] 32.0 mmol/L 21.0-32.0 [facility] Platelets bldOrdered By: Dr. Waite on 06-01-2022 Platelets (Bld) [#/Vol] 183 10*3/uL 150-450 [facility] Serum or plasma calcium jacinta urement (mass/volume)Ordered By: Dr. Waite on 06-01-2022 Calcium [Mass/Vol] 8.8 mg/dL 8.5-10.1 [facility] Serum or plasma creatinine m easurement (mass/volume)Ordered By: Dr. Waite on 06-01-2022 Creatinine [Mass/Vol] 0.26 mg/dL 0.70-1.30 [facility] Comment on above: The validity of the calculated GFR & GFRAA in patients over 70 years has not been determined. Clinical correlation is essential. Serum or plasma urea nitroge n measurement (mass/volume)Ordered By: Dr. Waite on 06-01-2022 Urea nitrogen [Mass/Vol] 12 mg/dL 7-18 [facility] Thin prep Papanicolaou smear with manual screeningOrdered By: Dr. Waite on 06-01-2022 Thin prep Papanicolaou smear with manual screening 3 5-15 [facility] Absolute lymphocyte countOrd ered By: Dr. Conn on 05-04-2022 Lymphocytes Auto (Unsp spec) [#/Vol] 1.95 10*3/uL 0.83-4.51 [facility] Basophil percentageOrdered B y: Dr. Conn on 05-04-2022 Basophil percentage 21.8 ug/mL 10.0-40.0 [facility] Basophil percentage 102 mg/dL 74-106 [facility] Basophil percentage 141 mmol/L 136-145 [facility] Basophil percentage 3.5 mmol/L 3.5-5.1 [facility] Basophil percentage 106 mmol/L 98-107 [facility] Basophils (Bld) [#/Vol] 5.5 10*3/uL 4.4-11.0 [facility] Basophils (Bld) [#/Vol] 2.8 10*3/uL 2.0-7.7 [facility] Basophils/100 WBC (Bld) 0.2 % 0-1 [facility] Basophils/100 WBC (Bld) 50.6 % 47-70 [facility] Basophils/100 WBC (Bld) 3.7 % 0-5 [facility] Chloride [Moles/Vol] 106 mmol/L 98-107 [facility] Eosinophils/100 WBC (Bld) 3.7 % 0-5 [facility] Glucose [Mass/Vol] 102 mg/dL 74-106 [facility] Comment on above: Fasting Glucose resu lt from 100 to 125 mg/dL suggests IMPAIRED HOMEOSTASIS per A.D.A. criteria. Neutrophils (Bld) [#/Vol] 2.8 10*3/uL 2.0-7.7 [facility] Neutrophils/100 WBC (Bld) 50.6 % 47-70 [facility] Potassium [Moles/Vol] 3.5 mmol/L 3.5-5.1 [facility] Sodium [Moles/Vol] 141 mmol/L 136-145 [facility] WBC (Bld) [#/Vol] 5.5 10*3/uL 4.4-11.0 [facility] Blood erythrocytes count (nu mber/volume)Ordered By: Dr. Conn on 05-04-2022 RBC (Bld) [#/Vol] 4.00 10*6/uL 4.6-6.2 [facility] Blood hemoglobin measurement (mass/volume)Ordered By: Dr. Conn on 05-04-2022 Hemoglobin (Bld) [Mass/Vol] 11.3 g/dL 13.0-16.5 [facility] Blood lymphocytes/100 leukoc ytesOrdered By: Dr. Conn on 05-04-2022 Lymphocytes/100 WBC (Bld) 35.6 % 19-41 [facility] Blood monocytes/100 leukocyt esOrdered By: Dr. Conn on 05-04-2022 Monocytes/100 WBC (Bld) 9.7 % 0-10 [facility] Blood platelet mean volumeOr dered By: Dr. Conn on 05-04-2022 Platelet mean volume (Bld) [Entitic vol] 10.8 fL 6.2-12.0 [facility] Determination of erythrocyte mean corpuscular volume (MCV)Ordered By: Dr. Conn on 05-04-2022 MCV (RBC) [Entitic vol] 87.3 fL 80-94 [facility] Hematocrit Auto (Bld) [Volum e fraction]Ordered By: Dr. Conn on 05-04-2022 Hematocrit (Bld) [Volume fraction] 34.9 % 40-54 [facility] Laboratory - Chemistry and C hemistry - challengeOrdered By: Dr. Conn on 05-04-2022 CO2 [Moles/Vol] 29.0 mmol/L 21.0-32.0 [facility] Urea nitrogen/Creatinine [Mass ratio] 62.5 mg/mg 10-20 [facility] Laboratory - Hematology and Cell countsOrdered By: Dr. Conn on 05-04-2022 Erythrocyte distribution width (RBC) [Entitic vol] 46.2 fL 35.1-43.9 [facility] Erythrocyte distribution width (RBC) [Ratio] 14.4 % 11.6-14.6 [facility] Immature granulocytes/100 WBC (Bld) 0.200 % 0.0-0.9 [facility] Comment on above: IG% - Immature Granu locytes (promyelocytes, myelocytes and metamyelocytes) > 1% indicates that a LEFT SHIFT is Present. MCH (RBC) [Entitic mass] 28.3 pg 27.0-32.0 [facility] Nucleated RBC/100 WBC (Bld) [Ratio] 0 % 0-5 [facility] MCHC Auto (RBC) [Mass/Vol]Or dered By: Dr. Conn on 05-04-2022 MCHC (RBC) [Mass/Vol] 32.4 g/dL 32-36 [facility] No Panel InformationOrdered By: Dr. Conn on 05-04-2022 Estimated GFR (MDRD) Amer 478 mL/min >60 [facility] Comment on above: GFR Calc Estimated GFR (MDRD) Non-Af Amer 395 mL/min >60 [facility] Comment on above: Non- GFR Calc 28.3 pg 27.0-32.0 [facility] 14.4 % 11.6-14.6 [facility] 46.2 fl 35.1-43.9 [facility] 0.200 % 0.0-0.9 [facility] 0 % 0-5 [facility] 395 mL/min >60 [facility] 478 mL/min >60 [facility] 62.5 RATIO 10-20 [facility] 29.0 mmol/L 21.0-32.0 [facility] Platelets bldOrdered By: Dr. Conn on 05-04-2022 Platelets (Bld) [#/Vol] 180 10*3/uL 150-450 [facility] Serum or plasma calcium jacinta urement (mass/volume)Ordered By: Dr. Conn on 05-04-2022 Calcium [Mass/Vol] 8.6 mg/dL 8.5-10.1 [facility] Serum or plasma creatinine m easurement (mass/volume)Ordered By: Dr. Conn on 05-04-2022 Creatinine [Mass/Vol] 0.27 mg/dL 0.70-1.30 [facility] Comment on above: The validity of the calculated GFR & GFRAA in patients over 70 years has not been determined. Clinical correlation is essential. Serum or plasma transthyreti n measurement (mass/volume)Ordered By: Dr. Conn on 05-04-2022 Prealbumin [Mass/Vol] 24.1 mg/dL 20.0-40.0 [facility] Serum or plasma urea nitroge n measurement (mass/volume)Ordered By: Dr. Conn on 05-04-2022 Urea nitrogen [Mass/Vol] 17 mg/dL 7-18 [facility] Thin prep Papanicolaou smear with manual screeningOrdered By: Dr. Conn on 05-04-2022 Thin prep Papanicolaou smear with manual screening 6 5-15 [facility] CNPNon 04-14-2022 CNPN Telephone ([facility]) -------- KRISS MICHAEL ([id number]) 1980 Date Time Provider Department 04/14/22 Yola LEAVITT During your visit today, we recorded the following information about you: Ebony Boateng 04/14/2022 12:39 PM Signed The patient had a Colostomy done by Dr leavitt. The patient 's mother (POA) States he is having issues with prolapse of colon, would like to see what could be done about this,. [phone] Ashly (mom) Geetha Walter RN 04/14/2022 1:40 [...] Fully Assessed Reason for Visit: Patient Update [6914] Patient Question [6467] Prescriptions as of 04/14/2022 - baclofen (LIORESAL) [...] infection [A4 (more content not included)... Normal [facility] CNPN Telephone ([employer]) -------- KRISS MICHAEL ([id number]) 1980 M Date Time Provider Department 04/14/22 [...] p*04/05/2018 Aspiration (more content not included)... Normal [facility] Absolute lymphocyte countOrd ered By: Dr. Alexandre on 04-01-2022 Lymphocytes Auto (Unsp spec) [#/Vol] 2.64 10*3/uL 0.83-4.51 [facility] Basophil percentageOrdered B y: Dr. Alexandre on 04-01-2022 Basophil percentage 122 mg/dL 74-106 [facility] Basophil percentage 145 mmol/L 136-145 [facility] Basophil percentage 3.5 mmol/L 3.5-5.1 [facility] Basophil percentage 110 mmol/L 98-107 [facility] Basophils (Bld) [#/Vol] 6.6 10*3/uL 4.4-11.0 [facility] Basophils (Bld) [#/Vol] 3.1 10*3/uL 2.0-7.7 [facility] Basophils/100 WBC (Bld) 0.2 % 0-1 [facility] Basophils/100 WBC (Bld) 46.7 % 47-70 [facility] Basophils/100 WBC (Bld) 2.1 % 0-5 [facility] Chloride [Moles/Vol] 110 mmol/L 98-107 [facility] Eosinophils/100 WBC (Bld) 2.1 % 0-5 [facility] Glucose [Mass/Vol] 122 mg/dL 74-106 [facility] Comment on above: Fasting Glucose resu lt from 100 to 125 mg/dL suggests IMPAIRED HOMEOSTASIS per A.D.A. criteria. Neutrophils (Bld) [#/Vol] 3.1 10*3/uL 2.0-7.7 [facility] Neutrophils/100 WBC (Bld) 46.7 % 47-70 [facility] Potassium [Moles/Vol] 3.5 mmol/L 3.5-5.1 [facility] Sodium [Moles/Vol] 145 mmol/L 136-145 [facility] WBC (Bld) [#/Vol] 6.6 10*3/uL 4.4-11.0 [facility] Blood erythrocytes count (nu mber/volume)Ordered By: Dr. Alexandre on 04-01-2022 RBC (Bld) [#/Vol] 3.33 10*6/uL 4.6-6.2 [facility] Blood hemoglobin measurement (mass/volume)Ordered By: Dr. Alexandre on 04-01-2022 Hemoglobin (Bld) [Mass/Vol] 9.2 g/dL 13.0-16.5 [facility] Blood lymphocytes/100 leukoc ytesOrdered By: Dr. Alexandre on 04-01-2022 Lymphocytes/100 WBC (Bld) 39.9 % 19-41 [facility] Blood monocytes/100 leukocyt esOrdered By: Dr. Alexandre on 04-01-2022 Monocytes/100 WBC (Bld) 10.0 % 0-10 [facility] Blood platelet mean volumeOr dered By: Dr. Alexandre on 04-01-2022 Platelet mean volume (Bld) [Entitic vol] 9.6 fL 6.2-12.0 [facility] Determination of erythrocyte mean corpuscular volume (MCV)Ordered By: Dr. Alexandre on 04-01-2022 MCV (RBC) [Entitic vol] 88.6 fL 80-94 [facility] Hematocrit Auto (Bld) [Volum e fraction]Ordered By: Dr. Alexandre on 04-01-2022 Hematocrit (Bld) [Volume fraction] 29.5 % 40-54 [facility] Laboratory - Chemistry and C hemistry - challengeOrdered By: Dr. Alexandre on 04-01-2022 CO2 [Moles/Vol] 29.0 mmol/L 21.0-32.0 [facility] Urea nitrogen/Creatinine [Mass ratio] 43.7 mg/mg 10-20 [facility] Laboratory - Hematology and Cell countsOrdered By: Dr. Alexandre on 04-01-2022 Erythrocyte distribution width (RBC) [Entitic vol] 48.4 fL 35.1-43.9 [facility] Erythrocyte distribution width (RBC) [Ratio] 15.0 % 11.6-14.6 [facility] Immature granulocytes/100 WBC (Bld) 1.100 % 0.0-0.9 [facility] Comment on above: IG% - Immature Granu locytes (promyelocytes, myelocytes and metamyelocytes) > 1% indicates that a LEFT SHIFT is Present. MCH (RBC) [Entitic mass] 27.6 pg 27.0-32.0 [facility] Nucleated RBC/100 WBC (Bld) [Ratio] 0 % 0-5 [facility] MCHC Auto (RBC) [Mass/Vol]Or dered By: Dr. Alexandre on 04-01-2022 MCHC (RBC) [Mass/Vol] 31.2 g/dL 32-36 [facility] No Panel InformationOrdered By: Dr. Alexandre on 04-01-2022 Estimated Creatinine Clearance Calc 460.75 ml/min [facility] Estimated GFR (MDRD) Amer 583 mL/min >60 [facility] Comment on above: GFR Calc Estimated GFR (MDRD) Non-Af Amer 482 mL/min >60 [facility] Comment on above: Non- GFR Calc 27.6 pg 27.0-32.0 [facility] 15.0 % 11.6-14.6 [facility] 48.4 fl 35.1-43.9 [facility] 1.100 % 0.0-0.9 [facility] 0 % 0-5 [facility] 482 mL/min >60 [facility] 583 mL/min >60 [facility] 460.75 ml/min [facility] 43.7 RATIO 10-20 [facility] 29.0 mmol/L 21.0-32.0 [facility] Platelets bldOrdered By: Dr. Alexandre on 04-01-2022 Platelets (Bld) [#/Vol] 237 10*3/uL 150-450 [facility] Serum or plasma calcium jacinta urement (mass/volume)Ordered By: Dr. Alexandre on 04-01-2022 Calcium [Mass/Vol] 8.2 mg/dL 8.5-10.1 [facility] Serum or plasma creatinine m easurement (mass/volume)Ordered By: Dr. Alexandre on 04-01-2022 Creatinine [Mass/Vol] 0.23 mg/dL 0.70-1.30 [facility] Comment on above: The validity of the calculated GFR & GFRAA in patients over 70 years has not been determined. Clinical correlation is essential. Serum or plasma urea nitroge n measurement (mass/volume)Ordered By: Dr. Alexandre on 04-01-2022 Urea nitrogen [Mass/Vol] 10 mg/dL 7-18 [facility] Thin prep Papanicolaou smear with manual screeningOrdered By: Dr. Alexandre on 04-01-2022 Thin prep Papanicolaou smear with manual screening 6 5-15 [facility] Basophil percentageOrdered B y: Dr. Dillard on 03-30-2022 Basophil percentage 7.2 g/dL 6.4-8.2 [facility] Basophil percentage 0.20 mg/dL 0.20-1.00 [facility] Bilirubin [Mass/Vol] 0.20 mg/dL 0.20-1.00 [facility] Comment on above: For patients on eltr ombopag therapy, use of Dimension [place] TBIL is not recommended. Protein [Mass/Vol] 7.2 g/dL 6.4-8.2 [facility] Laboratory - Chemistry and C hemistry - challengeOrdered By: Dr. Dillard on 03-30-2022 ALP [Catalytic activity/Vol] 79 U/L 45-117 [facility] ALT [Catalytic activity/Vol] 19 U/L 16-61 [facility] Globulin (S) [Mass/Vol] 4.5 g/dL 2.2-4.2 [facility] Laboratory - Microbiology an d Antimicrobial susceptibilityOrdered By: Dr. De La Torre on 03-30-2022 Bacteria identified Cx Nom (Bld) No growth in [address] [facility] No Panel InformationOrdered By: Dr. Dillard on 03-30-2022 4.5 g/dL 2.2-4.2 [facility] 79 U/L 45-117 [facility] 19 U/L 16-61 [facility] No Panel InformationOrdered By: Dr. De La Torre on 03-30-2022 No growth in [address] [facility] Serum or plasma albumin jacinta urement (mass/volume)Ordered By: Dr. Dillard on 03-30-2022 Albumin [Mass/Vol] 2.7 g/dL 3.2-5.0 [facility] Serum or plasma albumin/glob ulin mass ratioOrdered By: Dr. Dillard on 03-30-2022 Albumin/Globulin [Mass ratio] 0.6 {ratio} 0.9-2.4 [facility] Thin prep Papanicolaou smear with manual screeningOrdered By: Dr. Dillard on 03-30-2022 Thin prep Papanicolaou smear with manual screening 9 U/L 15-37 [facility] Bacteria identified Respirat ory culture Nom (Unsp spec)Ordered By: Dr. De La Torre on 03-27-2022 Respiratory [address] Proteus [address] [facility] Respiratory Culture Streptococcus agalactiae (B) [facility] Microbial respiratory culture Proteus mirabilis [facility] Microbial respiratory culture Streptococcus agalactiae (B) [facility] Basophil percentageOrdered B y: Dr. Dillard on 03-25-2022 Basophil percentage 0.7 mmol/L 0.4-2.0 [facility] Lactate [Moles/Vol] 0.7 mmol/L 0.4-2.0 [facility] Gram stain for investigation of transfusion reactionOrdered By: Dr. De La Torre on 03-25-2022 Microscopic observation Gram stain Nom (Unsp spec) [facility] Laboratory - Microbiology an d Antimicrobial susceptibilityOrdered By: Dr. Echavarria on 03-25-2022 Respiratory pathogens DNA and RNA 12b panel YAYO+probe (Unsp spec) [facility] Absolute lymphocyte countOrd ered By: Dr. De La Torre on 03-24-2022 Lymphocytes Auto (Unsp spec) [#/Vol] 0.99 10*3/uL 0.83-4.51 [facility] Basophil percentageOrdered B y: Dr. De La Torre on 03-24-2022 Basophil percentage 2.9 mmol/L 0.4-2.0 [facility] Basophil percentage 0-5 SEEN /hpf 0-5 [facility] Basophil percentage 145 mg/dL 74-106 [facility] Basophil percentage 133 mmol/L 136-145 [facility] Basophil percentage 3.8 mmol/L 3.5-5.1 [facility] Basophil percentage 99 mmol/L 98-107 [facility] Basophils (Bld) [#/Vol] 7.5 10*3/uL 4.4-11.0 [facility] Basophils (Bld) [#/Vol] 6.0 10*3/uL 2.0-7.7 [facility] Basophils/100 WBC (Bld) 0.3 % 0-1 [facility] Basophils/100 WBC (Bld) 79.9 % 47-70 [facility] Basophils/100 WBC (Bld) 1.3 % 0-5 [facility] Chloride [Moles/Vol] 99 mmol/L 98-107 [facility] Eosinophils/100 WBC (Bld) 1.3 % 0-5 [facility] Glucose [Mass/Vol] 145 mg/dL 74-106 [facility] Comment on above: Fasting Glucose resu lt greater than or equal to 126 mg/dL suggests DIABETES MELLITUS per A.D.A. criteria. Lactate [Moles/Vol] 2.7 mmol/L 0.4-2.0 [facility] Comment on above: Critical Result(s) C alled at: 18:44:06 03/24/2022 by: MARIBEL [facility] [place] [employer]. Results read back by same. Neutrophils (Bld) [#/Vol] 6.0 10*3/uL 2.0-7.7 [facility] Neutrophils/100 WBC (Bld) 79.9 % 47-70 [facility] Potassium [Moles/Vol] 3.8 mmol/L 3.5-5.1 [facility] Sodium [Moles/Vol] 133 mmol/L 136-145 [facility] WBC (Bld) [#/Vol] 7.5 10*3/uL 4.4-11.0 [facility] Basophil percentageOrdered B y: Dr. Echavarria on 03-24-2022 Basophil percentage 8.3 g/dL 6.4-8.2 [facility] Basophil percentage 0.30 mg/dL 0.20-1.00 [facility] Bilirubin Test strip Ql (U)O rdered By: Dr. De La Torre on 03-24-2022 Bilirubin Ql (U) Negative Negative [facility] Blood erythrocytes count (nu mber/volume)Ordered By: Dr. De La Torre on 03-24-2022 RBC (Bld) [#/Vol] 4.25 10*6/uL 4.6-6.2 [facility] Blood hemoglobin measurement (mass/volume)Ordered By: Dr. De La Torre on 03-24-2022 Hemoglobin (Bld) [Mass/Vol] 11.5 g/dL 13.0-16.5 [facility] Blood lymphocytes/100 leukoc ytesOrdered By: Dr. De La Torre on 03-24-2022 Lymphocytes/100 WBC (Bld) 13.1 % 19-41 [facility] Blood monocytes/100 leukocyt esOrdered By: Dr. De La Torre on 03-24-2022 Monocytes/100 WBC (Bld) 5.3 % 0-10 [facility] Blood platelet mean volumeOr dered By: Dr. De La Torre on 03-24-2022 Platelet mean volume (Bld) [Entitic vol] 10.4 fL 6.2-12.0 [facility] Determination of erythrocyte mean corpuscular volume (MCV)Ordered By: Dr. De La Torre on 03-24-2022 MCV (RBC) [Entitic vol] 85.4 fL 80-94 [facility] Direct bilirubinOrdered By: Dr. Echavarria on 03-24-2022 Bilirubin.direct [Mass/Vol] 0.07 mg/dL 0.00-0.30 [facility] Hematocrit Auto (Bld) [Volum e fraction]Ordered By: Dr. De La Torre on 03-24-2022 Hematocrit (Bld) [Volume fraction] 36.3 % 40-54 [facility] Influenza virus A and B and SARS-CoV-2 (COVID-19) Ag panel - Upper respiratory specimOrdered By: Dr. De La Torre on 03-24-2022 SARS-CoV-2 (COVID-19) RNA YAYO+probe Ql (Resp) [facility] Ketones Test strip Ql (U)Ord ered By: Dr. De La Torre on 03-24-2022 Ketones Ql (U) 15 mg/dl Negative [facility] Laboratory - Chemistry and C hemistry - challengeOrdered By: Dr. De La Torre on 03-24-2022 CO2 [Moles/Vol] 23.0 mmol/L 21.0-32.0 [facility] Urea nitrogen/Creatinine [Mass ratio] 22.2 mg/mg 10-20 [facility] Laboratory - Hematology and Cell countsOrdered By: Dr. De La Torre on 03-24-2022 Erythrocyte distribution width (RBC) [Entitic vol] 43.3 fL 35.1-43.9 [facility] Erythrocyte distribution width (RBC) [Ratio] 14.0 % 11.6-14.6 [facility] Immature granulocytes/100 WBC (Bld) 0.100 % 0.0-0.9 [facility] Comment on above: IG% - Immature Granu locytes (promyelocytes, myelocytes and metamyelocytes) > 1% indicates that a LEFT SHIFT is Present. MCH (RBC) [Entitic mass] 27.1 pg 27.0-32.0 [facility] Nucleated RBC/100 WBC (Bld) [Ratio] 0 % 0-5 [facility] MCHC Auto (RBC) [Mass/Vol]Or dered By: Dr. De La Torre on 03-24-2022 MCHC (RBC) [Mass/Vol] 31.7 g/dL 32-36 [facility] Mucus LM Ql (Urine sed)Order ed By: Dr. De La Torre on 03-24-2022 Mucus Ql (Urine sed) 0 SEEN /hpf [facility] Nitrite Test strip Ql (U)Ord ered By: Dr. De La Torre on 03-24-2022 Nitrite Ql (U) Negative Negative [facility] No Panel InformationOrdered By: Dr. De La Torre on 03-24-2022 Estimated Creatinine Clearance Calc 154.32 ml/min [facility] Estimated GFR (MDRD) Amer 267 mL/min >60 [facility] Comment on above: GFR Calc Estimated GFR (MDRD) Non-Af Amer 220 mL/min >60 [facility] Comment on above: Non- GFR Calc 27.1 pg 27.0-32.0 [facility] 14.0 % 11.6-14.6 [facility] 43.3 fl 35.1-43.9 [facility] 0.100 % 0.0-0.9 [facility] 0 % 0-5 [facility] 220 mL/min >60 [facility] 267 mL/min >60 [facility] 154.32 ml/min [facility] 22.2 RATIO 10-20 [facility] 23.0 mmol/L 21.0-32.0 [facility] No Panel InformationOrdered By: Dr. Echavarria on 03-24-2022 4.9 g/dL 2.2-4.2 [facility] 137 U/L 45-117 [facility] 20 U/L 16-61 [facility] Platelets bldOrdered By: Dr. De La Torre on 03-24-2022 Platelets (Bld) [#/Vol] 141 10*3/uL 150-450 [facility] Protein Test strip Ql (U)Ord ered By: Dr. De La Torre on 03-24-2022 Protein Ql (U) 30 mg/dl Negative [facility] Serum or plasma albumin jacinta urement (mass/volume)Ordered By: Dr. Echavarria on 03-24-2022 Albumin [Mass/Vol] 3.4 g/dL 3.2-5.0 [facility] Serum or plasma calcium jacinta urement (mass/volume)Ordered By: Dr. De La Torre on 03-24-2022 Calcium [Mass/Vol] 8.6 mg/dL 8.5-10.1 [facility] Serum or plasma creatinine m easurement (mass/volume)Ordered By: Dr. De La Torre on 03-24-2022 Creatinine [Mass/Vol] 0.45 mg/dL 0.70-1.30 [facility] Comment on above: The validity of the calculated GFR & GFRAA in patients over 70 years has not been determined. Clinical correlation is essential. Serum or plasma urea nitroge n measurement (mass/volume)Ordered By: Dr. De La Torre on 03-24-2022 Urea nitrogen [Mass/Vol] 10 mg/dL 7-18 [facility] Squamous epithelial cells de tection in urine sediment by light microscopyOrdered By: Dr. De La Torre on 03-24-2022 Epithelial cells.squamous LM Ql (Urine sed) 0 SEEN /hpf 0-5 [facility] Thin prep Papanicolaou smear with manual screeningOrdered By: Dr. De La Torre on 03-24-2022 Thin prep Papanicolaou smear with manual screening 11 5-15 [facility] Thin prep Papanicolaou smear with manual screeningOrdered By: Dr. Echavarria on 03-24-2022 Thin prep Papanicolaou smear with manual screening 22 U/L 15-37 [facility] Urine blood detectionOrdered By: Dr. De La Torre on 03-24-2022 RBC Ql (U) 10 /ul Negative [facility] RBC Ql (U) 0-5 SEEN /hpf 0-5 [facility] Urine clarityOrdered By: Dr. De La Torre on 03-24-2022 Clarity (U) Clear Clear [facility] Urine color determinationOrd ered By: Dr. De La Torre on 03-24-2022 Color (U) Yellow Yellow [facility] Urine glucose detectionOrder ed By: Dr. De La Torre on 03-24-2022 Glucose Ql (U) Normal mg/dl Normal [facility] Urine leukocyte esterase det ection by dipstickOrdered By: Dr. De La Torre on 03-24-2022 Leukocyte esterase Test strip Ql (U) 25 /ul Negative [facility] Urine pHOrdered By: Dr. Walter hidalgo on 03-24-2022 pH (U) 7.0 [pH] 5.0 - 8.0 [facility] Urine sediment bacteria coun t by microscopy (number/high power field)Ordered By: Dr. De La Torre on 03-24-2022 Bacteria LM.HPF (Urine sed) [#/Area] 0 /[HPF] None Seen [facility] Urine specific gravity measu rementOrdered By: Dr. De La Torre on 03-24-2022 Specific gravity (U) [Rel density] 1.005 1.002-1.030 [facility] Urobilinogen Auto test strip Ql (U)Ordered By: Dr. De La Torre on 03-24-2022 Urobilinogen Ql (U) Normal mg/dl Normal [facility] Absolute lymphocyte countOrd ered By: Dr. Waite on 03-23-2022 Lymphocytes Auto (Unsp spec) [#/Vol] 1.82 10*3/uL 0.83-4.51 [facility] Basophil percentageOrdered B y: Dr. Waite on 03-23-2022 Basophil percentage 104 mg/dL 74-106 [facility] Basophil percentage 139 mmol/L 136-145 [facility] Basophil percentage 3.8 mmol/L 3.5-5.1 [facility] Basophil percentage 104 mmol/L 98-107 [facility] Basophils (Bld) [#/Vol] 6.6 10*3/uL 4.4-11.0 [facility] Basophils (Bld) [#/Vol] 3.9 10*3/uL 2.0-7.7 [facility] Basophils/100 WBC (Bld) 0.2 % 0-1 [facility] Basophils/100 WBC (Bld) 59.9 % 47-70 [facility] Basophils/100 WBC (Bld) 3.8 % 0-5 [facility] Chloride [Moles/Vol] 104 mmol/L 98-107 [facility] Eosinophils/100 WBC (Bld) 3.8 % 0-5 [facility] Glucose [Mass/Vol] 104 mg/dL 74-106 [facility] Comment on above: Fasting Glucose resu lt from 100 to 125 mg/dL suggests IMPAIRED HOMEOSTASIS per A.D.A. criteria. Neutrophils (Bld) [#/Vol] 3.9 10*3/uL 2.0-7.7 [facility] Neutrophils/100 WBC (Bld) 59.9 % 47-70 [facility] Potassium [Moles/Vol] 3.8 mmol/L 3.5-5.1 [facility] Sodium [Moles/Vol] 139 mmol/L 136-145 [facility] WBC (Bld) [#/Vol] 6.6 10*3/uL 4.4-11.0 [facility] Blood erythrocytes count (nu mber/volume)Ordered By: Dr. Waite on 03-23-2022 RBC (Bld) [#/Vol] 4.00 10*6/uL 4.6-6.2 [facility] Blood hemoglobin measurement (mass/volume)Ordered By: Dr. Waite on 03-23-2022 Hemoglobin (Bld) [Mass/Vol] 10.8 g/dL 13.0-16.5 [facility] Blood lymphocytes/100 leukoc ytesOrdered By: Dr. Waite on 03-23-2022 Lymphocytes/100 WBC (Bld) 27.7 % 19-41 [facility] Blood monocytes/100 leukocyt esOrdered By: Dr. Waite on 03-23-2022 Monocytes/100 WBC (Bld) 7.9 % 0-10 [facility] Blood platelet mean volumeOr dered By: Dr. Waite on 03-23-2022 Platelet mean volume (Bld) [Entitic vol] 10.2 fL 6.2-12.0 [facility] Determination of erythrocyte mean corpuscular volume (MCV)Ordered By: Dr. Waite on 03-23-2022 MCV (RBC) [Entitic vol] 86.0 fL 80-94 [facility] Hematocrit Auto (Bld) [Volum e fraction]Ordered By: Dr. Waite on 03-23-2022 Hematocrit (Bld) [Volume fraction] 34.4 % 40-54 [facility] Laboratory - Chemistry and C hemistry - challengeOrdered By: Dr. Waite on 03-23-2022 CO2 [Moles/Vol] 31.0 mmol/L 21.0-32.0 [facility] Urea nitrogen/Creatinine [Mass ratio] 60.0 mg/mg 10-20 [facility] Laboratory - Hematology and Cell countsOrdered By: Dr. Waite on 03-23-2022 Erythrocyte distribution width (RBC) [Entitic vol] 43.8 fL 35.1-43.9 [facility] Erythrocyte distribution width (RBC) [Ratio] 13.9 % 11.6-14.6 [facility] Immature granulocytes/100 WBC (Bld) 0.500 % 0.0-0.9 [facility] Comment on above: IG% - Immature Granu locytes (promyelocytes, myelocytes and metamyelocytes) > 1% indicates that a LEFT SHIFT is Present. MCH (RBC) [Entitic mass] 27.0 pg 27.0-32.0 [facility] Nucleated RBC/100 WBC (Bld) [Ratio] 0 % 0-5 [facility] MCHC Auto (RBC) [Mass/Vol]Or dered By: Dr. Waite on 03-23-2022 MCHC (RBC) [Mass/Vol] 31.4 g/dL 32-36 [facility] No Panel InformationOrdered By: Dr. Waite on 03-23-2022 Estimated GFR (MDRD) Amer 527 mL/min >60 [facility] Comment on above: GFR Calc Estimated GFR (MDRD) Non-Af Amer 435 mL/min >60 [facility] Comment on above: Non- GFR Calc 27.0 pg 27.0-32.0 [facility] 13.9 % 11.6-14.6 [facility] 43.8 fl 35.1-43.9 [facility] 0.500 % 0.0-0.9 [facility] 0 % 0-5 [facility] 435 mL/min >60 [facility] 527 mL/min >60 [facility] 60.0 RATIO 10-20 [facility] 31.0 mmol/L 21.0-32.0 [facility] Platelets bldOrdered By: Dr. Waite on 03-23-2022 Platelets (Bld) [#/Vol] 169 10*3/uL 150-450 [facility] Serum or plasma calcium jacinta urement (mass/volume)Ordered By: Dr. Waite on 03-23-2022 Calcium [Mass/Vol] 8.3 mg/dL 8.5-10.1 [facility] Serum or plasma creatinine m easurement (mass/volume)Ordered By: Dr. Waite on 03-23-2022 Creatinine [Mass/Vol] 0.25 mg/dL 0.70-1.30 [facility] Comment on above: The validity of the calculated GFR & GFRAA in patients over 70 years has not been determined. Clinical correlation is essential. Serum or plasma urea nitroge n measurement (mass/volume)Ordered By: Dr. Waite on 03-23-2022 Urea nitrogen [Mass/Vol] 15 mg/dL 7-18 [facility] Thin prep Papanicolaou smear with manual screeningOrdered By: Dr. Waite on 03-23-2022 Thin prep Papanicolaou smear with manual screening 4 5-15 [facility] Absolute lymphocyte countOrd ered By: Dr. De La Torre on 02-24-2022 Lymphocytes Auto (Unsp spec) [#/Vol] 2.18 10*3/uL 0.83-4.51 [facility] Basophil percentageOrdered B y: Dr. De La Torre on 02-24-2022 Basophil percentage 110 mg/dL 74-106 [facility] Basophil percentage 8.8 g/dL 6.4-8.2 [facility] Basophil percentage 0.20 mg/dL 0.20-1.00 [facility] Basophil percentage 135 mmol/L 136-145 [facility] Basophil percentage 4.2 mmol/L 3.5-5.1 [facility] Basophil percentage 102 mmol/L 98-107 [facility] Basophils (Bld) [#/Vol] 7.9 10*3/uL 4.4-11.0 [facility] Basophils (Bld) [#/Vol] 4.6 10*3/uL 2.0-7.7 [facility] Basophils/100 WBC (Bld) 0.3 % 0-1 [facility] Basophils/100 WBC (Bld) 58.7 % 47-70 [facility] Basophils/100 WBC (Bld) 4.4 % 0-5 [facility] Bilirubin [Mass/Vol] 0.20 mg/dL 0.20-1.00 [facility] Comment on above: For patients on eltr ombopag therapy, use of Dimension [place] TBIL is not recommended. Chloride [Moles/Vol] 102 mmol/L 98-107 [facility] Eosinophils/100 WBC (Bld) 4.4 % 0-5 [facility] Glucose [Mass/Vol] 110 mg/dL 74-106 [facility] Comment on above: Fasting Glucose resu lt from 100 to 125 mg/dL suggests IMPAIRED HOMEOSTASIS per A.D.A. criteria. Neutrophils (Bld) [#/Vol] 4.6 10*3/uL 2.0-7.7 [facility] Neutrophils/100 WBC (Bld) 58.7 % 47-70 [facility] Potassium [Moles/Vol] 4.2 mmol/L 3.5-5.1 [facility] Protein [Mass/Vol] 8.8 g/dL 6.4-8.2 [facility] Sodium [Moles/Vol] 135 mmol/L 136-145 [facility] WBC (Bld) [#/Vol] 7.9 10*3/uL 4.4-11.0 [facility] Blood erythrocytes count (nu mber/volume)Ordered By: Dr. De La Torre on 02-24-2022 RBC (Bld) [#/Vol] 4.41 10*6/uL 4.6-6.2 [facility] Blood hemoglobin measurement (mass/volume)Ordered By: Dr. De La Torre on 02-24-2022 Hemoglobin (Bld) [Mass/Vol] 12.1 g/dL 13.0-16.5 [facility] Blood lymphocytes/100 leukoc ytesOrdered By: Dr. De La Torre on 02-24-2022 Lymphocytes/100 WBC (Bld) 27.6 % 19-41 [facility] Blood monocytes/100 leukocyt esOrdered By: Dr. De La Torre on 02-24-2022 Monocytes/100 WBC (Bld) 8.7 % 0-10 [facility] Blood platelet mean volumeOr dered By: Dr. De La Torre on 02-24-2022 Platelet mean volume (Bld) [Entitic vol] 9.7 fL 6.2-12.0 [facility] Determination of erythrocyte mean corpuscular volume (MCV)Ordered By: Dr. De La Torre on 02-24-2022 MCV (RBC) [Entitic vol] 85.0 fL 80-94 [facility] Hematocrit Auto (Bld) [Volum e fraction]Ordered By: Dr. De La Torre on 02-24-2022 Hematocrit (Bld) [Volume fraction] 37.5 % 40-54 [facility] Laboratory - Chemistry and C hemistry - challengeOrdered By: Dr. De La Torre on 02-24-2022 ALP [Catalytic activity/Vol] 162 U/L 45-117 [facility] ALT [Catalytic activity/Vol] 23 U/L 16-61 [facility] CO2 [Moles/Vol] 26.0 mmol/L 21.0-32.0 [facility] Globulin (S) [Mass/Vol] 5.4 g/dL 2.2-4.2 [facility] Urea nitrogen/Creatinine [Mass ratio] 34.3 mg/mg 10-20 [facility] Laboratory - Hematology and Cell countsOrdered By: Dr. De La Torre on 02-24-2022 Erythrocyte distribution width (RBC) [Entitic vol] 41.9 fL 35.1-43.9 [facility] Erythrocyte distribution width (RBC) [Ratio] 13.4 % 11.6-14.6 [facility] Immature granulocytes/100 WBC (Bld) 0.300 % 0.0-0.9 [facility] Comment on above: IG% - Immature Granu locytes (promyelocytes, myelocytes and metamyelocytes) > 1% indicates that a LEFT SHIFT is Present. MCH (RBC) [Entitic mass] 27.4 pg 27.0-32.0 [facility] Nucleated RBC/100 WBC (Bld) [Ratio] 0 % 0-5 [facility] MCHC Auto (RBC) [Mass/Vol]Or dered By: Dr. De La Torre on 02-24-2022 MCHC (RBC) [Mass/Vol] 32.3 g/dL 32-36 [facility] No Panel InformationOrdered By: Dr. De La Torre on 02-24-2022 Estimated Creatinine Clearance Calc 169.38 ml/min [facility] Estimated GFR (MDRD) Amer 299 mL/min >60 [facility] Comment on above: GFR Calc Estimated GFR (MDRD) Non-Af Amer 247 mL/min >60 [facility] Comment on above: Non- GFR Calc 27.4 pg 27.0-32.0 [facility] 13.4 % 11.6-14.6 [facility] 41.9 fl 35.1-43.9 [facility] 0.300 % 0.0-0.9 [facility] 0 % 0-5 [facility] 247 mL/min >60 [facility] 299 mL/min >60 [facility] 169.38 ml/min [facility] 34.3 RATIO 10-20 [facility] 5.4 g/dL 2.2-4.2 [facility] 162 U/L 45-117 [facility] 23 U/L 16-61 [facility] 26.0 mmol/L 21.0-32.0 [facility] Platelets bldOrdered By: Dr. De La Torre on 02-24-2022 Platelets (Bld) [#/Vol] 210 10*3/uL 150-450 [facility] Serum or plasma albumin jacinta urement (mass/volume)Ordered By: Dr. De La Torre on 02-24-2022 Albumin [Mass/Vol] 3.4 g/dL 3.2-5.0 [facility] Serum or plasma albumin/glob ulin mass ratioOrdered By: Dr. De La Torre on 02-24-2022 Albumin/Globulin [Mass ratio] 0.6 {ratio} 0.9-2.4 [facility] Serum or plasma calcium jacinta urement (mass/volume)Ordered By: Dr. De La Torre on 02-24-2022 Calcium [Mass/Vol] 9.0 mg/dL 8.5-10.1 [facility] Serum or plasma creatinine m easurement (mass/volume)Ordered By: Dr. De La Torre on 02-24-2022 Creatinine [Mass/Vol] 0.41 mg/dL 0.70-1.30 [facility] Comment on above: The validity of the calculated GFR & GFRAA in patients over 70 years has not been determined. Clinical correlation is essential. Serum or plasma urea nitroge n measurement (mass/volume)Ordered By: Dr. De La Torre on 02-24-2022 Urea nitrogen [Mass/Vol] 14 mg/dL 7-18 [facility] Thin prep Papanicolaou smear with manual screeningOrdered By: Dr. De La Torre on 02-24-2022 Thin prep Papanicolaou smear with manual screening 11 U/L 15-37 [facility] Thin prep Papanicolaou smear with manual screening 7 5-15 [facility] Absolute lymphocyte countOrd ered By: Dr. Waite on 02-06-2022 Lymphocytes Auto (Unsp spec) [#/Vol] 1.84 10*3/uL 0.83-4.51 [facility] Basophil percentageOrdered B y: Dr. Waite on 02-06-2022 Basophil percentage 113 mg/dL 74-106 [facility] Basophil percentage 138 mmol/L 136-145 [facility] Basophil percentage 3.8 mmol/L 3.5-5.1 [facility] Basophil percentage 103 mmol/L 98-107 [facility] Basophils (Bld) [#/Vol] 7.8 10*3/uL 4.4-11.0 [facility] Basophils (Bld) [#/Vol] 5.1 10*3/uL 2.0-7.7 [facility] Basophils/100 WBC (Bld) 0.1 % 0-1 [facility] Basophils/100 WBC (Bld) 65.4 % 47-70 [facility] Basophils/100 WBC (Bld) 4.0 % 0-5 [facility] Chloride [Moles/Vol] 103 mmol/L 98-107 [facility] Eosinophils/100 WBC (Bld) 4.0 % 0-5 [facility] Glucose [Mass/Vol] 113 mg/dL 74-106 [facility] Comment on above: Fasting Glucose resu lt from 100 to 125 mg/dL suggests IMPAIRED HOMEOSTASIS per A.D.A. criteria. Neutrophils (Bld) [#/Vol] 5.1 10*3/uL 2.0-7.7 [facility] Neutrophils/100 WBC (Bld) 65.4 % 47-70 [facility] Potassium [Moles/Vol] 3.8 mmol/L 3.5-5.1 [facility] Sodium [Moles/Vol] 138 mmol/L 136-145 [facility] WBC (Bld) [#/Vol] 7.8 10*3/uL 4.4-11.0 [facility] Blood erythrocytes count (nu mber/volume)Ordered By: Dr. Waite on 02-06-2022 RBC (Bld) [#/Vol] 4.00 10*6/uL 4.6-6.2 [facility] Blood hemoglobin measurement (mass/volume)Ordered By: Dr. Waite on 02-06-2022 Hemoglobin (Bld) [Mass/Vol] 11.5 g/dL 13.0-16.5 [facility] Blood lymphocytes/100 leukoc ytesOrdered By: Dr. Waite on 02-06-2022 Lymphocytes/100 WBC (Bld) 23.5 % 19-41 [facility] Blood monocytes/100 leukocyt esOrdered By: Dr. Waite on 02-06-2022 Monocytes/100 WBC (Bld) 6.9 % 0-10 [facility] Blood platelet mean volumeOr dered By: Dr. Waite on 02-06-2022 Platelet mean volume (Bld) [Entitic vol] 9.8 fL 6.2-12.0 [facility] Determination of erythrocyte mean corpuscular volume (MCV)Ordered By: Dr. Waite on 02-06-2022 MCV (RBC) [Entitic vol] 86.0 fL 80-94 [facility] Hematocrit Auto (Bld) [Volum e fraction]Ordered By: Dr. Waite on 02-06-2022 Hematocrit (Bld) [Volume fraction] 34.4 % 40-54 [facility] Laboratory - Chemistry and C hemistry - challengeOrdered By: Dr. Waite on 02-06-2022 CO2 [Moles/Vol] 29.0 mmol/L 21.0-32.0 [facility] Urea nitrogen/Creatinine [Mass ratio] 55.6 mg/mg 10-20 [facility] Laboratory - Hematology and Cell countsOrdered By: Dr. Waite on 02-06-2022 Erythrocyte distribution width (RBC) [Entitic vol] 43.1 fL 35.1-43.9 [facility] Erythrocyte distribution width (RBC) [Ratio] 13.8 % 11.6-14.6 [facility] Immature granulocytes/100 WBC (Bld) 0.100 % 0.0-0.9 [facility] Comment on above: IG% - Immature Granu locytes (promyelocytes, myelocytes and metamyelocytes) > 1% indicates that a LEFT SHIFT is Present. MCH (RBC) [Entitic mass] 28.8 pg 27.0-32.0 [facility] Nucleated RBC/100 WBC (Bld) [Ratio] 0 % 0-5 [facility] MCHC Auto (RBC) [Mass/Vol]Or dered By: Dr. Waite on 02-06-2022 MCHC (RBC) [Mass/Vol] 33.4 g/dL 32-36 [facility] No Panel InformationOrdered By: Dr. Waite on 02-06-2022 Estimated GFR (MDRD) Amer 482 mL/min >60 [facility] Comment on above: GFR Calc Estimated GFR (MDRD) Non-Af Amer 399 mL/min >60 [facility] Comment on above: Non- GFR Calc 28.8 pg 27.0-32.0 [facility] 13.8 % 11.6-14.6 [facility] 43.1 fl 35.1-43.9 [facility] 0.100 % 0.0-0.9 [facility] 0 % 0-5 [facility] 399 mL/min >60 [facility] 482 mL/min >60 [facility] 55.6 RATIO 10-20 [facility] 29.0 mmol/L 21.0-32.0 [facility] Platelets bldOrdered By: Dr. Waite on 02-06-2022 Platelets (Bld) [#/Vol] 171 10*3/uL 150-450 [facility] Serum or plasma calcium jacinta urement (mass/volume)Ordered By: Dr. Waite on 02-06-2022 Calcium [Mass/Vol] 8.3 mg/dL 8.5-10.1 [facility] Serum or plasma creatinine m easurement (mass/volume)Ordered By: Dr. Waite on 02-06-2022 Creatinine [Mass/Vol] 0.27 mg/dL 0.70-1.30 [facility] Comment on above: The validity of the calculated GFR & GFRAA in patients over 70 years has not been determined. Clinical correlation is essential. Serum or plasma urea nitroge n measurement (mass/volume)Ordered By: Dr. Waite on 02-06-2022 Urea nitrogen [Mass/Vol] 15 mg/dL 7-18 [facility] Thin prep Papanicolaou smear with manual screeningOrdered By: Dr. Waite on 02-06-2022 Thin prep Papanicolaou smear with manual screening 6 5-15 [facility] Absolute lymphocyte countOrd ered By: Dr. Waite on 01-05-2022 Lymphocytes Auto (Unsp spec) [#/Vol] 2.32 10*3/uL 0.83-4.51 [facility] Basophil percentageOrdered B y: Dr. Waite on 01-05-2022 Basophil percentage 87 mg/dL 74-106 [facility] Basophil percentage 7.5 g/dL 6.4-8.2 [facility] Basophil percentage 0.20 mg/dL 0.20-1.00 [facility] Basophil percentage 139 mmol/L 136-145 [facility] Basophil percentage 4.2 mmol/L 3.5-5.1 [facility] Basophil percentage 102 mmol/L 98-107 [facility] Basophils (Bld) [#/Vol] 6.3 10*3/uL 4.4-11.0 [facility] Basophils (Bld) [#/Vol] 2.9 10*3/uL 2.0-7.7 [facility] Basophils/100 WBC (Bld) 0.5 % 0-1 [facility] Basophils/100 WBC (Bld) 45.8 % 47-70 [facility] Basophils/100 WBC (Bld) 8.0 % 0-5 [facility] Bilirubin [Mass/Vol] 0.20 mg/dL 0.20-1.00 [facility] Comment on above: For patients on eltr ombopag therapy, use of Dimension [place] TBIL is not recommended. Chloride [Moles/Vol] 102 mmol/L 98-107 [facility] Eosinophils/100 WBC (Bld) 8.0 % 0-5 [facility] Glucose [Mass/Vol] 87 mg/dL 74-106 [facility] Neutrophils (Bld) [#/Vol] 2.9 10*3/uL 2.0-7.7 [facility] Neutrophils/100 WBC (Bld) 45.8 % 47-70 [facility] Potassium [Moles/Vol] 4.2 mmol/L 3.5-5.1 [facility] Protein [Mass/Vol] 7.5 g/dL 6.4-8.2 [facility] Sodium [Moles/Vol] 139 mmol/L 136-145 [facility] WBC (Bld) [#/Vol] 6.3 10*3/uL 4.4-11.0 [facility] Blood erythrocytes count (nu mber/volume)Ordered By: Dr. Waite on 01-05-2022 RBC (Bld) [#/Vol] 4.05 10*6/uL 4.6-6.2 [facility] Blood hemoglobin measurement (mass/volume)Ordered By: Dr. Waite on 01-05-2022 Hemoglobin (Bld) [Mass/Vol] 11.6 g/dL 13.0-16.5 [facility] Blood lymphocytes/100 leukoc ytesOrdered By: Dr. Waite on 01-05-2022 Lymphocytes/100 WBC (Bld) 37.0 % 19-41 [facility] Blood monocytes/100 leukocyt esOrdered By: Dr. Waite on 01-05-2022 Monocytes/100 WBC (Bld) 8.5 % 0-10 [facility] Blood platelet mean volumeOr dered By: Dr. Waite on 01-05-2022 Platelet mean volume (Bld) [Entitic vol] 10.0 fL 6.2-12.0 [facility] Determination of erythrocyte mean corpuscular volume (MCV)Ordered By: Dr. Waite on 01-05-2022 MCV (RBC) [Entitic vol] 86.9 fL 80-94 [facility] Hematocrit Auto (Bld) [Volum e fraction]Ordered By: Dr. Waite on 01-05-2022 Hematocrit (Bld) [Volume fraction] 35.2 % 40-54 [facility] Laboratory - Chemistry and C hemistry - challengeOrdered By: Dr. Waite on 01-05-2022 ALP [Catalytic activity/Vol] 126 U/L 45-117 [facility] ALT [Catalytic activity/Vol] 20 U/L 16-61 [facility] CO2 [Moles/Vol] 31.0 mmol/L 21.0-32.0 [facility] Globulin (S) [Mass/Vol] 4.4 g/dL 2.2-4.2 [facility] Urea nitrogen/Creatinine [Mass ratio] 51.7 mg/mg 10-20 [facility] Laboratory - Hematology and Cell countsOrdered By: Dr. Waite on 01-05-2022 Erythrocyte distribution width (RBC) [Entitic vol] 44.0 fL 35.1-43.9 [facility] Erythrocyte distribution width (RBC) [Ratio] 13.8 % 11.6-14.6 [facility] Immature granulocytes/100 WBC (Bld) 0.200 % 0.0-0.9 [facility] Comment on above: IG% - Immature Granu locytes (promyelocytes, myelocytes and metamyelocytes) > 1% indicates that a LEFT SHIFT is Present. MCH (RBC) [Entitic mass] 28.6 pg 27.0-32.0 [facility] Nucleated RBC/100 WBC (Bld) [Ratio] 0 % 0-5 [facility] MCHC Auto (RBC) [Mass/Vol]Or dered By: Dr. Waite on 01-05-2022 MCHC (RBC) [Mass/Vol] 33.0 g/dL 32-36 [facility] No Panel InformationOrdered By: Dr. Waite on 01-05-2022 Estimated GFR (MDRD) Amer 480 mL/min >60 [facility] Comment on above: GFR Calc Estimated GFR (MDRD) Non-Af Amer 397 mL/min >60 [facility] Comment on above: Non- GFR Calc 28.6 pg 27.0-32.0 [facility] 13.8 % 11.6-14.6 [facility] 44.0 fl 35.1-43.9 [facility] 0.200 % 0.0-0.9 [facility] 0 % 0-5 [facility] 397 mL/min >60 [facility] 480 mL/min >60 [facility] 51.7 RATIO 10-20 [facility] 4.4 g/dL 2.2-4.2 [facility] 126 U/L 45-117 [facility] 20 U/L 16-61 [facility] 31.0 mmol/L 21.0-32.0 [facility] Platelets bldOrdered By: Dr. Waite on 01-05-2022 Platelets (Bld) [#/Vol] 165 10*3/uL 150-450 [facility] Serum or plasma albumin jacinta urement (mass/volume)Ordered By: Dr. Waite on 01-05-2022 Albumin [Mass/Vol] 3.1 g/dL 3.2-5.0 [facility] Serum or plasma albumin/glob ulin mass ratioOrdered By: Dr. Waite on 01-05-2022 Albumin/Globulin [Mass ratio] 0.7 {ratio} 0.9-2.4 [facility] Serum or plasma calcium jacinta urement (mass/volume)Ordered By: Dr. Waite on 01-05-2022 Calcium [Mass/Vol] 8.6 mg/dL 8.5-10.1 [facility] Serum or plasma creatinine m easurement (mass/volume)Ordered By: Dr. Waite on 01-05-2022 Creatinine [Mass/Vol] 0.27 mg/dL 0.70-1.30 [facility] Comment on above: The validity of the calculated GFR & GFRAA in patients over 70 years has not been determined. Clinical correlation is essential. Serum or plasma urea nitroge n measurement (mass/volume)Ordered By: Dr. Waite on 01-05-2022 Urea nitrogen [Mass/Vol] 14 mg/dL 7-18 [facility] Thin prep Papanicolaou smear with manual screeningOrdered By: Dr. Waite on 01-05-2022 Thin prep Papanicolaou smear with manual screening 13 U/L 15-37 [facility] Thin prep Papanicolaou smear with manual screening 6 5-15 [facility] Absolute lymphocyte countOrd ered By: Dr. Waite on 12-08-2021 Lymphocytes Auto (Unsp spec) [#/Vol] 2.18 10*3/uL 0.83-4.51 [facility] Basophil percentageOrdered B y: Dr. Waite on 12-08-2021 Basophil percentage 88 mg/dL 74-106 [facility] Basophil percentage 143 mmol/L 136-145 [facility] Basophil percentage 4.2 mmol/L 3.5-5.1 [facility] Basophil percentage 105 mmol/L 98-107 [facility] Basophils (Bld) [#/Vol] 6.4 10*3/uL 4.4-11.0 [facility] Basophils (Bld) [#/Vol] 3.1 10*3/uL 2.0-7.7 [facility] Basophils/100 WBC (Bld) 0.3 % 0-1 [facility] Basophils/100 WBC (Bld) 48.5 % 47-70 [facility] Basophils/100 WBC (Bld) 8.9 % 0-5 [facility] Chloride [Moles/Vol] 105 mmol/L 98-107 [facility] Eosinophils/100 WBC (Bld) 8.9 % 0-5 [facility] Glucose [Mass/Vol] 88 mg/dL 74-106 [facility] Neutrophils (Bld) [#/Vol] 3.1 10*3/uL 2.0-7.7 [facility] Neutrophils/100 WBC (Bld) 48.5 % 47-70 [facility] Potassium [Moles/Vol] 4.2 mmol/L 3.5-5.1 [facility] Sodium [Moles/Vol] 143 mmol/L 136-145 [facility] WBC (Bld) [#/Vol] 6.4 10*3/uL 4.4-11.0 [facility] Blood erythrocytes count (nu mber/volume)Ordered By: Dr. Waite on 12-08-2021 RBC (Bld) [#/Vol] 3.54 10*6/uL 4.6-6.2 [facility] Blood hemoglobin measurement (mass/volume)Ordered By: Dr. Waite on 12-08-2021 Hemoglobin (Bld) [Mass/Vol] 10.0 g/dL 13.0-16.5 [facility] Blood lymphocytes/100 leukoc ytesOrdered By: Dr. Waite on 12-08-2021 Lymphocytes/100 WBC (Bld) 33.9 % 19-41 [facility] Blood monocytes/100 leukocyt esOrdered By: Dr. Waite on 12-08-2021 Monocytes/100 WBC (Bld) 7.9 % 0-10 [facility] Blood platelet mean volumeOr dered By: Dr. Waite on 12-08-2021 Platelet mean volume (Bld) [Entitic vol] 9.9 fL 6.2-12.0 [facility] Determination of erythrocyte mean corpuscular volume (MCV)Ordered By: Dr. Waite on 12-08-2021 MCV (RBC) [Entitic vol] 89.5 fL 80-94 [facility] Hematocrit Auto (Bld) [Volum e fraction]Ordered By: Dr. Waite on 12-08-2021 Hematocrit (Bld) [Volume fraction] 31.7 % 40-54 [facility] Laboratory - Chemistry and C hemistry - challengeOrdered By: Dr. Waite on 12-08-2021 CO2 [Moles/Vol] 29.0 mmol/L 21.0-32.0 [facility] Urea nitrogen/Creatinine [Mass ratio] 48.8 mg/mg 10-20 [facility] Laboratory - Hematology and Cell countsOrdered By: Dr. Waite on 12-08-2021 Erythrocyte distribution width (RBC) [Entitic vol] 44.7 fL 35.1-43.9 [facility] Erythrocyte distribution width (RBC) [Ratio] 13.6 % 11.6-14.6 [facility] Immature granulocytes/100 WBC (Bld) 0.500 % 0.0-0.9 [facility] Comment on above: IG% - Immature Granu locytes (promyelocytes, myelocytes and metamyelocytes) > 1% indicates that a LEFT SHIFT is Present. MCH (RBC) [Entitic mass] 28.2 pg 27.0-32.0 [facility] Nucleated RBC/100 WBC (Bld) [Ratio] 0 % 0-5 [facility] MCHC Auto (RBC) [Mass/Vol]Or dered By: Dr. Waite on 12-08-2021 MCHC (RBC) [Mass/Vol] 31.5 g/dL 32-36 [facility] No Panel InformationOrdered By: Dr. Waite on 12-08-2021 Estimated GFR (MDRD) Amer 450 mL/min >60 [facility] Comment on above: GFR Calc Estimated GFR (MDRD) Non-Af Amer 372 mL/min >60 [facility] Comment on above: Non- GFR Calc 28.2 pg 27.0-32.0 [facility] 13.6 % 11.6-14.6 [facility] 44.7 fl 35.1-43.9 [facility] 0.500 % 0.0-0.9 [facility] 0 % 0-5 [facility] 372 mL/min >60 [facility] 450 mL/min >60 [facility] 48.8 RATIO 10-20 [facility] 29.0 mmol/L 21.0-32.0 [facility] Platelets bldOrdered By: Dr. Waite on 12-08-2021 Platelets (Bld) [#/Vol] 239 10*3/uL 150-450 [facility] Serum or plasma calcium jacinta urement (mass/volume)Ordered By: Dr. Waite on 12-08-2021 Calcium [Mass/Vol] 8.1 mg/dL 8.5-10.1 [facility] Serum or plasma creatinine m easurement (mass/volume)Ordered By: Dr. Waite on 12-08-2021 Creatinine [Mass/Vol] 0.29 mg/dL 0.70-1.30 [facility] Comment on above: The validity of the calculated GFR & GFRAA in patients over 70 years has not been determined. Clinical correlation is essential. Serum or plasma urea nitroge n measurement (mass/volume)Ordered By: Dr. Waite on 12-08-2021 Urea nitrogen [Mass/Vol] 14 mg/dL 7-18 [facility] Thin prep Papanicolaou smear with manual screeningOrdered By: Dr. Waite on 12-08-2021 Thin prep Papanicolaou smear with manual screening 9 5-15 [facility] Absolute lymphocyte countOrd ered By: Dr. Dillard on 12-05-2021 Lymphocytes Auto (Unsp spec) [#/Vol] 1.83 10*3/uL 0.83-4.51 [facility] Basophil percentageOrdered B y: Dr. Dillard on 12-05-2021 Basophil percentage 105 mg/dL 74-106 [facility] Basophil percentage 7.8 g/dL 6.4-8.2 [facility] Basophil percentage 0.20 mg/dL 0.20-1.00 [facility] Basophil percentage 140 mmol/L 136-145 [facility] Basophil percentage 3.8 mmol/L 3.5-5.1 [facility] Basophil percentage 107 mmol/L 98-107 [facility] Basophils (Bld) [#/Vol] 7.0 10*3/uL 4.4-11.0 [facility] Basophils (Bld) [#/Vol] 3.8 10*3/uL 2.0-7.7 [facility] Basophils/100 WBC (Bld) 0.3 % 0-1 [facility] Basophils/100 WBC (Bld) 54.8 % 47-70 [facility] Basophils/100 WBC (Bld) 9.3 % 0-5 [facility] Bilirubin [Mass/Vol] 0.20 mg/dL 0.20-1.00 [facility] Comment on above: For patients on eltr ombopag therapy, use of Dimension [place] TBIL is not recommended. Chloride [Moles/Vol] 107 mmol/L 98-107 [facility] Eosinophils/100 WBC (Bld) 9.3 % 0-5 [facility] Glucose [Mass/Vol] 105 mg/dL 74-106 [facility] Comment on above: Fasting Glucose resu lt from 100 to 125 mg/dL suggests IMPAIRED HOMEOSTASIS per A.D.A. criteria. Neutrophils (Bld) [#/Vol] 3.8 10*3/uL 2.0-7.7 [facility] Neutrophils/100 WBC (Bld) 54.8 % 47-70 [facility] Potassium [Moles/Vol] 3.8 mmol/L 3.5-5.1 [facility] Protein [Mass/Vol] 7.8 g/dL 6.4-8.2 [facility] Sodium [Moles/Vol] 140 mmol/L 136-145 [facility] WBC (Bld) [#/Vol] 7.0 10*3/uL 4.4-11.0 [facility] Blood erythrocytes count (nu mber/volume)Ordered By: Dr. Dillard on 12-05-2021 RBC (Bld) [#/Vol] 3.84 10*6/uL 4.6-6.2 [facility] Blood hemoglobin measurement (mass/volume)Ordered By: Dr. Dillard on 12-05-2021 Hemoglobin (Bld) [Mass/Vol] 10.7 g/dL 13.0-16.5 [facility] Blood lymphocytes/100 leukoc ytesOrdered By: Dr. Dlilard on 12-05-2021 Lymphocytes/100 WBC (Bld) 26.3 % 19-41 [facility] Blood monocytes/100 leukocyt esOrdered By: Dr. Dillard on 12-05-2021 Monocytes/100 WBC (Bld) 8.9 % 0-10 [facility] Blood platelet mean volumeOr dered By: Dr. Dillard on 12-05-2021 Platelet mean volume (Bld) [Entitic vol] 10.0 fL 6.2-12.0 [facility] Determination of erythrocyte mean corpuscular volume (MCV)Ordered By: Dr. Dillard on 12-05-2021 MCV (RBC) [Entitic vol] 89.6 fL 80-94 [facility] Hematocrit Auto (Bld) [Volum e fraction]Ordered By: Dr. Dillard on 12-05-2021 Hematocrit (Bld) [Volume fraction] 34.4 % 40-54 [facility] Laboratory - Chemistry and C hemistry - challengeOrdered By: Dr. Dillard on 12-05-2021 ALP [Catalytic activity/Vol] 134 U/L 45-117 [facility] ALT [Catalytic activity/Vol] 24 U/L 16-61 [facility] CO2 [Moles/Vol] 27.0 mmol/L 21.0-32.0 [facility] Globulin (S) [Mass/Vol] 5.0 g/dL 2.2-4.2 [facility] Urea nitrogen/Creatinine [Mass ratio] 47.1 mg/mg 10-20 [facility] Laboratory - Hematology and Cell countsOrdered By: Dr. Dillard on 12-05-2021 Erythrocyte distribution width (RBC) [Entitic vol] 45.1 fL 35.1-43.9 [facility] Erythrocyte distribution width (RBC) [Ratio] 13.8 % 11.6-14.6 [facility] Immature granulocytes/100 WBC (Bld) 0.400 % 0.0-0.9 [facility] Comment on above: IG% - Immature Granu locytes (promyelocytes, myelocytes and metamyelocytes) > 1% indicates that a LEFT SHIFT is Present. MCH (RBC) [Entitic mass] 27.9 pg 27.0-32.0 [facility] Nucleated RBC/100 WBC (Bld) [Ratio] 0 % 0-5 [facility] MCHC Auto (RBC) [Mass/Vol]Or dered By: Dr. Dillard on 12-05-2021 MCHC (RBC) [Mass/Vol] 31.1 g/dL 32-36 [facility] Comment on above: Delta: 32.8 on 12/04 No Panel InformationOrdered By: Dr. Dillard on 12-05-2021 Estimated Creatinine Clearance Calc 269.76 ml/min [facility] Estimated GFR (MDRD) Amer 516 mL/min >60 [facility] Comment on above: GFR Calc Estimated GFR (MDRD) Non-Af Amer 426 mL/min >60 [facility] Comment on above: Non- GFR Calc 27.9 pg 27.0-32.0 [facility] 13.8 % 11.6-14.6 [facility] 45.1 fl 35.1-43.9 [facility] 0.400 % 0.0-0.9 [facility] 0 % 0-5 [facility] 426 mL/min >60 [facility] 516 mL/min >60 [facility] 269.76 ml/min [facility] 47.1 RATIO 10-20 [facility] 5.0 g/dL 2.2-4.2 [facility] 134 U/L 45-117 [facility] 24 U/L 16-61 [facility] 27.0 mmol/L 21.0-32.0 [facility] Platelets bldOrdered By: Dr. Dillard on 12-05-2021 Platelets (Bld) [#/Vol] 181 10*3/uL 150-450 [facility] Serum or plasma albumin jacinta urement (mass/volume)Ordered By: Dr. Dillard on 12-05-2021 Albumin [Mass/Vol] 2.8 g/dL 3.2-5.0 [facility] Serum or plasma albumin/glob ulin mass ratioOrdered By: Dr. Dillard on 12-05-2021 Albumin/Globulin [Mass ratio] 0.6 {ratio} 0.9-2.4 [facility] Serum or plasma calcium jacinta urement (mass/volume)Ordered By: Dr. Dillard on 12-05-2021 Calcium [Mass/Vol] 8.7 mg/dL 8.5-10.1 [facility] Serum or plasma creatinine m easurement (mass/volume)Ordered By: Dr. Dillard on 12-05-2021 Creatinine [Mass/Vol] 0.26 mg/dL 0.70-1.30 [facility] Comment on above: The validity of the calculated GFR & GFRAA in patients over 70 years has not been determined. Clinical correlation is essential. Serum or plasma urea nitroge n measurement (mass/volume)Ordered By: Dr. Dillard on 12-05-2021 Urea nitrogen [Mass/Vol] 12 mg/dL 7-18 [facility] Thin prep Papanicolaou smear with manual screeningOrdered By: Dr. Dillard on 12-05-2021 Thin prep Papanicolaou smear with manual screening 13 U/L 15-37 [facility] Thin prep Papanicolaou smear with manual screening 6 5-15 [facility] Bacteria identified Respirat ory culture Nom (Unsp spec)Ordered By: Dominic Méndez on 12-02-2021 Respiratory Culture Pseudomonas aeroginosa [facility] Microbial respiratory culture [facility] Laboratory - Chemistry and C hemistry - challengeOrdered By: Dr. Dillard on 12-02-2021 Magnesium [Mass/Vol] 2.2 mg/dL 1.6-2.6 [facility] No Panel InformationOrdered By: Dr. Dillard on 12-02-2021 2.2 mg/dL 1.6-2.6 [facility] Assessment of wrist artery p atency prior to arterial punctureOrdered By: Dr. Dillard on 12-01-2021 Arterial patency Wrist artery --pre arterial puncture Negative [facility] Base excessOrdered By: Dr. Roxi britton on 12-01-2021 Base excess Calc (BldV) [Moles/Vol] -3 mmol/L -2-2 [facility] Basophil percentageOrdered B y: Dr. Dillard on 12-01-2021 Basophil percentage 1.2 mmol/L 0.4-2.0 [facility] Lactate [Moles/Vol] 1.2 mmol/L 0.4-2.0 [facility] Basophil percentage 21.5 mmol/L 22-26 [facility] Basophils/100 WBC (Bld) 94 % 95-99 [facility] CO2 (BldA) [Partial pressure ]Ordered By: Dr. Dillard on 12-01-2021 CO2 (Bld) [Partial pressure] 31.2 mm[Hg] 35-45 [facility] Gram stain for investigation of transfusion reactionOrdered By: Dominic Méndez on 12-01-2021 Microscopic observation Gram stain Nom (Unsp spec) [facility] Laboratory - Microbiology an d Antimicrobial susceptibilityOrdered By: Dr. Moreira on 12-01-2021 Respiratory pathogens DNA and RNA 12b panel YAYO+probe (Unsp spec) [facility] No Panel InformationOrdered By: Dr. Dillard on 12-01-2021 Blood Gas Liter Flow 3.0 /min [facility] Blood Gas Sample Site R [place] Blood Gas Specimen Type ART [facility] Blood Gas Total CO2 22 mmol/L [facility] Blood Gas Vent Mode home vent [facility] Oxygen Delivery Device Adult Vent [facility] R [facility] home vent [facility] Adult Vent [facility] 3.0 /min [facility] 22 mmol/L [facility] Oxygen (BldA) [Partial press ure]Ordered By: Dr. Dillard on 12-01-2021 Oxygen (Bld) [Partial pressure] 65 mmHG 75-100 [facility] pH measurementOrdered By: Dr Roxanne Dillard on 12-01-2021 pH (Unsp spec) 7.45 [pH] 7.35-7.45 [facility] Absolute lymphocyte counton 11-30-2021 Lymphocytes Auto (Unsp spec) [#/Vol] 1.55 10*3/uL 0.83-4.51 [facility] Work Phone: Basophil percentageon 2021 Basophils/100 WBC (Bld) 0.3 % 0-1 [facility] Work Phone: [phone] Chloride [Moles/Vol] 104 mmol/L 98-107 [facility] Work Phone: [phone] Eosinophils/100 WBC (Bld) 5.1 % 0-5 [facility] Work Phone: [phone] Glucose [Mass/Vol] 84 mg/dL 74-106 [facility] Work Phone: [phone] Neutrophils (Bld) [#/Vol] 3.6 10*3/uL 2.0-7.7 [facility] Work Phone: [phone] Neutrophils/100 WBC (Bld) 58.6 % 47-70 [facility] Work Phone: [phone] Potassium [Moles/Vol] 3.7 mmol[facility]L 3.5-5.[facility]: [phone] Sodium [Moles/Vol] 140 mmol/L 136-145 [facility] Work Phone: [phone] WBC (Bld) [#/Vol] 6.1 10*3/uL 4.4-11.0 [facility] Work Phone: Blood erythrocytes count (nu mber/volume)on 11-30-2021 RBC (Bld) [#/Vol] 4.31 10*6/uL 4.6-6.2 [facility] Work Phone: Blood hemoglobin measurement (mass/volume)on 11-30-2021 Hemoglobin (Bld) [Mass/Vol] 12.0 g/dL 13.0-16.5 [facility] Work Phone: [phone] Blood lymphocytes/100 leukoc yteson 11-30-2021 Lymphocytes/100 WBC (Bld) 25.6 % 19-41 [facility] Work Phone: [phone] Blood monocytes/100 leukocyt eson 11-30-2021 Monocytes/100 WBC (Bld) 10.2 % 0-10 [facility] Work Phone: Blood platelet mean volumeon 11-30-2021 Platelet mean volume (Bld) [Entitic vol] 9.8 fL 6.2-12.0 [facility] Work Phone: Determination of erythrocyte mean corpuscular volume (MCV)on 11-30-2021 MCV (RBC) [Entitic vol] 86.8 fL 80-94 [facility] Work Phone: Hematocrit Auto (Bld) [Volum e fraction]on 11-30-2021 Hematocrit (Bld) [Volume fraction] 37.4 % 40-54 [facility] Work Phone: Laboratory - Chemistry and C hemistry - challengeon 11-30-2021 CO2 [Moles/Vol] 28.0 mmol/L 21.0-32.0 [facility] Work Phone: Urea nitrogen/Creatinine [Mass ratio] 35.0 mg/mg 10-20 [facility] Work Phone: Laboratory - Hematology and Cell countson 11-30-2021 Erythrocyte distribution width (RBC) [Entitic vol] 41.7 fL 35.1-43.9 [facility] Work Phone: Erythrocyte distribution width (RBC) [Ratio] 13.2 % 11.6-14.6 [facility] Work Phone: Immature granulocytes/100 WBC (Bld) 0.200 % 0.0-0.9 [facility] Work Phone: Comment on above: IG% - Immature Granu locytes (promyelocytes, myelocytes and metamyelocytes) > 1% indicates that a LEFT SHIFT is Present. MCH (RBC) [Entitic mass] 27.8 pg 27.0-32.0 [facility] Work Phone: Nucleated RBC/100 WBC (Bld) [Ratio] 0 % 0-5 [facility] Work Phone: MCHC Auto (RBC) [Mass/Vol]on 11-30-2021 MCHC (RBC) [Mass/Vol] 32.1 g/dL 32-36 [facility] Work [facility]: No Panel Informationon 11-30 Estimated Creatinine Clearance Calc 357.48 ml/min [facility] Work Phone: Estimated GFR (MDRD) Amer 406 mL/min >60 [facility] Work Phone: Comment on above: GFR Calc Estimated GFR (MDRD) Non-Af Amer 335 mL/min >60 [facility] Work Phone: Comment on above: Non- GFR Calc Platelets bldon 11-30-2021 Platelets (Bld) [#/Vol] 166 10*3/uL 150-450 [facility] Work Phone: Serum or plasma calcium jacinta urement (mass/volume)on 11-30-2021 Calcium [Mass/Vol] 8.7 mg/dL 8.5-10.1 [facility] Work Phone: Serum or plasma creatinine m easurement (mass/volume)on 11-30-2021 Creatinine [Mass/Vol] 0.31 mg/dL 0.70-1.30 [facility] Work Phone: Comment on above: The validity of the calculated GFR & GFRAA in patients over 70 years has not been determined. Clinical correlation is essential. Serum or plasma urea nitroge n measurement (mass/volume)on 11-30-2021 Urea nitrogen [Mass/Vol] 11 mg/dL 7-18 [facility] Work Phone: Thin prep Papanicolaou smear with manual screeningon 11-30-2021 Thin prep Papanicolaou smear with manual screening 8 5-15 [facility] Work Phone: Absolute lymphocyte counton 11-03-2021 Lymphocytes Auto (Unsp spec) [#/Vol] 2.54 10*3/uL 0.83-4.51 [facility] Work Phone: Basophil percentageon 2021 Basophils/100 WBC (Bld) 0.5 % 0-1 [facility] Work Phone: Chloride [Moles/Vol] 102 mmol/L 98-107 [facility] Work Phone: [phone] Eosinophils/100 WBC (Bld) 4.1 % 0-5 [facility] Work Phone: [phone] Glucose [Mass/Vol] 98 mg/dL 74-106 [facility] Work Phone: Neutrophils (Bld) [#/Vol] 3.2 10*3/uL 2.0-7.7 [facility] Work Phone: [phone] Neutrophils/100 WBC (Bld) 47.6 % 47-70 [facility] Work Phone: [phone] Potassium [Moles/Vol] 3.6 mmol/L 3.5-5.1 [facility] Work Phone: [phone] Sodium [Moles/Vol] 138 mmol/L 136-145 [facility] Work Phone: WBC (Bld) [#/Vol] 6.6 10*3/uL 4.4-11.0 [facility] Work Phone: Blood erythrocytes count (nu mber/volume)on 11-03-2021 RBC (Bld) [#/Vol] 4.09 10*6/uL 4.6-6.2 [facility] Work Phone: Blood hemoglobin measurement (mass/volume)on 11-03-2021 Hemoglobin (Bld) [Mass/Vol] 11.9 g/dL 13.0-16.5 [facility] Work Phone: [phone] Blood lymphocytes/100 leukoc yteson 11-03-2021 Lymphocytes/100 WBC (Bld) 38.4 % 19-41 [facility] Work Phone: [phone] Blood monocytes/100 leukocyt eson 11-03-2021 Monocytes/100 WBC (Bld) 9.2 % 0-10 [facility] Work Phone: Blood platelet mean volumeon 11-03-2021 Platelet mean volume (Bld) [Entitic vol] 10.1 fL 6.2-12.0 [facility] Work Phone: Determination of erythrocyte mean corpuscular volume (MCV)on 11-03-2021 MCV (RBC) [Entitic vol] 88.3 fL 80-94 [facility] Work Phone: Hematocrit Auto (Bld) [Volum e fraction]on 11-03-2021 Hematocrit (Bld) [Volume fraction] 36.1 % 40-54 [facility] Work Phone: Laboratory - Chemistry and C hemistry - challengeon 11-03-2021 CO2 [Moles/Vol] 27.0 mmol/L 21.0-32.0 [facility] Work Phone: Urea nitrogen/Creatinine [Mass ratio] 47.9 mg/mg 10-20 [facility] Work Phone: Laboratory - Hematology and Cell countson 11-03-2021 Erythrocyte distribution width (RBC) [Entitic vol] 44.0 fL 35.1-43.9 [facility] Work Phone: Erythrocyte distribution width (RBC) [Ratio] 13.5 % 11.6-14.6 [facility] Work Phone: Immature granulocytes/100 WBC (Bld) 0.200 % 0.0-0.9 [facility] Work Phone: Comment on above: IG% - Immature Granu locytes (promyelocytes, myelocytes and metamyelocytes) > 1% indicates that a LEFT SHIFT is Present. MCH (RBC) [Entitic mass] 29.1 pg 27.0-32.0 [facility] Work Phone: Nucleated RBC/100 WBC (Bld) [Ratio] 0 % 0-5 [facility] Work Phone: MCHC Auto (RBC) [Mass/Vol]on 11-03-2021 MCHC (RBC) [Mass/Vol] 33.0 g/dL 32-36 [facility] Work Phone: No Panel Informationon 11-03 Estimated GFR (MDRD) Amer 352 mL/min >60 [facility] Work Phone: Comment on above: GFR Calc Estimated GFR (MDRD) Non-Af Amer 291 mL/min >60 [facility] Work Phone: Comment on above: Non- GFR Calc Platelets bldon 11-03-2021 Platelets (Bld) [#/Vol] 215 10*3/uL 150-450 [facility] Work Phone: Serum or plasma calcium jacinta urement (mass/volume)on 11-03-2021 Calcium [Mass/Vol] 8.9 mg/dL 8.5-10.1 [facility] Work Phone: Serum or plasma creatinine m easurement (mass/volume)on 11-03-2021 Creatinine [Mass/Vol] 0.36 mg/dL 0.70-1.30 [facility] Work Phone: Comment on above: The validity of the calculated GFR & GFRAA in patients over 70 years has not been determined. Clinical correlation is essential. Serum or plasma urea nitroge n measurement (mass/volume)on 11-03-2021 Urea nitrogen [Mass/Vol] 17 mg/dL 7-18 [facility] Work Phone: Thin prep Papanicolaou smear with manual screeningon 11-03-2021 Thin prep Papanicolaou smear with manual screening 9 5-15 [facility] Work Phone: Absolute lymphocyte counton 09-10-2021 Lymphocytes Auto (Unsp spec) [#/Vol] 2.63 10*3/uL 0.83-4.51 [facility] Work Phone: Basophil percentageon 2021 Basophils/100 WBC (Bld) 0.3 % 0-1 [facility] Work Phone: Chloride [Moles/Vol] 102 mmol/L 98-107 [facility] Work Phone: Eosinophils/100 WBC (Bld) 3.9 % 0-5 [facility] Work Phone: Glucose [Mass/Vol] 80 mg/dL 74-106 [facility] Work Phone: Neutrophils (Bld) [#/Vol] 3.5 10*3/uL 2.0-7.7 [facility] Work Phone: Neutrophils/100 WBC (Bld) 48.5 % 47-70 [facility] Work Phone: Potassium [Moles/Vol] 4.1 mmol/L 3.5-5.1 [facility] Work Phone: Sodium [Moles/Vol] 138 mmol/L 136-145 [facility] Work Phone: WBC (Bld) [#/Vol] 7.1 10*3/uL 4.4-11.0 [facility] [facility] Work [facility]: Blood erythrocytes count (nu mber/volume)on 09-10-2021 RBC (Bld) [#/Vol] 4.00 10*6/uL 4.6-6.2 [facility] Work Phone: Blood hemoglobin measurement (mass/volume)on 09-10-2021 Hemoglobin (Bld) [Mass/Vol] 11.3 g/dL 13.0-16.5 [facility] Work Phone: Blood lymphocytes/100 leukoc yteson 09-10-2021 Lymphocytes/100 WBC (Bld) 36.9 % 19-41 [facility] Work Phone: Blood monocytes/100 leukocyt eson 09-10-2021 Monocytes/100 WBC (Bld) 10.3 % 0-10 [facility] Work Phone: Blood platelet mean volumeon 09-10-2021 Platelet mean volume (Bld) [Entitic vol] 10.7 fL 6.2-12.0 [facility] Work Phone: Determination of erythrocyte mean corpuscular volume (MCV)on 09-10-2021 MCV (RBC) [Entitic vol] 89.5 fL 80-94 [facility] Work Phone: Hematocrit Auto (Bld) [Volum e fraction]on 09-10-2021 Hematocrit (Bld) [Volume fraction] 35.8 % 40-54 [facility] Work Phone: Iron measurement (mass/mass) on 09-10-2021 Iron (Unsp spec) [Mass/Mass] 59 ug/dL 65-175 [facility] Work Phone: Laboratory - Chemistry and C hemistry - challengeon 09-10-2021 CO2 [Moles/Vol] 30.0 mmol/L 21.0-32.0 [facility] Work Phone: Urea nitrogen/Creatinine [Mass ratio] 71.9 mg/mg 10-20 [facility] Work Phone: Laboratory - Hematology and Cell countson 09-10-2021 Erythrocyte distribution width (RBC) [Entitic vol] 47.7 fL 35.1-43.9 [facility] Work Phone: Erythrocyte distribution width (RBC) [Ratio] 14.6 % 11.6-14.6 [facility] Work Phone: Immature granulocytes/100 WBC (Bld) 0.100 % 0.0-0.9 [facility] Work Phone: Comment on above: IG% - Immature Granu locytes (promyelocytes, myelocytes and metamyelocytes) > 1% indicates that a LEFT SHIFT is Present. MCH (RBC) [Entitic mass] 28.3 pg 27.0-32.0 [facility] Work Phone: Nucleated RBC/100 WBC (Bld) [Ratio] 0 % 0-5 [facility] Work Phone: MCHC Auto (RBC) [Mass/Vol]on 09-10-2021 MCHC (RBC) [Mass/Vol] 31.6 g/dL 32-[facility]: No Panel Informationon 09-10 Estimated GFR (MDRD) Amer 467 mL/min >60 [facility] Work Phone: Comment on above: GFR Calc Estimated GFR (MDRD) Non-Af Amer 386 mL/min >60 [facility] Work Phone: Comment on above: Non- GFR Calc Platelets bldon 09-10-2021 Platelets (Bld) [#/Vol] 177 10*3/uL 150-450 [facility] Work Phone: Serum or plasma calcium jacinta urement (mass/volume)on 09-10-2021 Calcium [Mass/Vol] 9.0 mg/dL 8.5-10.1 [facility] Work Phone: Serum or plasma creatinine m easurement (mass/volume)on 09-10-2021 Creatinine [Mass/Vol] 0.28 mg/dL 0.70-1.30 [facility] Work Phone: Comment on above: The validity of the calculated GFR & GFRAA in patients over 70 years has not been determined. Clinical correlation is essential. Serum or plasma urea nitroge n measurement (mass/volume)on 09-10-2021 Urea nitrogen [Mass/Vol] 20 mg/dL 7-18 [facility] Work Phone: Thin prep Papanicolaou smear with manual screeningon 09-10-2021 Thin prep Papanicolaou smear with manual screening 6 5-15 [facility] Work Phone: Absolute lymphocyte counton 08-12-2021 Lymphocytes Auto (Unsp spec) [#/Vol] 1.84 10*3/uL 0.83-4.51 [facility] Work Phone: Basophil percentageon 2021 Basophils/100 WBC (Bld) 0.2 % 0-1 [facility] Work Phone: Chloride [Moles/Vol] 103 mmol/L 98-107 [facility] Work Phone: Eosinophils/100 WBC (Bld) 4.6 % 0-5 [facility] Work Phone: Glucose [Mass/Vol] 90 mg/dL 74-106 [facility] Work Phone: Neutrophils (Bld) [#/Vol] 2.4 10*3/uL 2.0-7.7 [facility] Work Phone: Neutrophils/100 WBC (Bld) 48.8 % 47-70 [facility] Work Phone: Potassium [Moles/Vol] 3.8 mmol/L 3.5-5.1 [facility]: Sodium [Moles/Vol] 139 mmol/L 136-145 [facility]: WBC (Bld) [#/Vol] 5.0 10*3/uL 4.4-11.0 [facility] Work Phone: Blood erythrocytes count (nu mber/volume)on 08-12-2021 RBC (Bld) [#/Vol] 4.09 10*6/uL 4.6-6.2 [facility]: Blood hemoglobin measurement (mass/volume)on 08-12-2021 Hemoglobin (Bld) [Mass/Vol] 11.5 g/dL 13.0-16.5 [facility] Work Phone: Blood lymphocytes/100 leukoc yteson 08-12-2021 Lymphocytes/100 WBC (Bld) 36.8 % 19-41 [facility] Work Phone: Blood monocytes/100 leukocyt eson 08-12-2021 Monocytes/100 WBC (Bld) 9.4 % 0-10 [facility] Work Phone: Blood platelet mean volumeon 08-12-2021 Platelet mean volume (Bld) [Entitic vol] 11.0 fL 6.2-12.0 [facility] Work Phone: Determination of erythrocyte mean corpuscular volume (MCV)on 08-12-2021 MCV (RBC) [Entitic vol] 87.0 fL 80-94 [facility] Work Phone: Hematocrit Auto (Bld) [Volum e fraction]on 08-12-2021 Hematocrit (Bld) [Volume fraction] 35.6 % 40-54 [facility] Work Phone: Laboratory - Chemistry and C hemistry - challengeon 08-12-2021 CO2 [Moles/Vol] 29.0 mmol/L 21.0-32.0 [facility] Work Phone: Urea nitrogen/Creatinine [Mass ratio] 50.8 mg/mg 10-20 [facility] Work Phone: Laboratory - Hematology and Cell countson 08-12-2021 Erythrocyte distribution width (RBC) [Entitic vol] 44.2 fL 35.1-43.9 [facility] Work Phone: Erythrocyte distribution width (RBC) [Ratio] 14.1 % 11.6-14.6 [facility] Work Phone: Immature granulocytes/100 WBC (Bld) 0.200 % 0.0-0.9 [facility] Work Phone: Comment on above: IG% - Immature Granu locytes (promyelocytes, myelocytes and metamyelocytes) > 1% indicates that a LEFT SHIFT is Present. MCH (RBC) [Entitic mass] 28.1 pg 27.0-32.0 [facility] Work Phone: Nucleated RBC/100 WBC (Bld) [Ratio] 0 % 0-5 [facility] Work Phone: MCHC Auto (RBC) [Mass/Vol]on 08-12-2021 MCHC (RBC) [Mass/Vol] 32.3 g/dL 32-36 [facility]: No Panel Informationon 08-12 Estimated GFR (MDRD) Amer 405 mL/min >60 [facility] Work Phone: Comment on above: GFR Calc Estimated GFR (MDRD) Non-Af Amer 334 mL/min >60 [facility] Work Phone: Comment on above: Non- GFR Calc Platelets bldon 08-12-2021 Platelets (Bld) [#/Vol] 151 10*3/uL 150-450 [facility] Work Phone: Serum or plasma calcium jacinta urement (mass/volume)on 08-12-2021 Calcium [Mass/Vol] 9.0 mg/dL 8.5-10.1 [facility] Work Phone: Serum or plasma creatinine m easurement (mass/volume)on 08-12-2021 Creatinine [Mass/Vol] 0.32 mg/dL 0.70-1.30 [facility] Work Phone: Comment on above: The validity of the calculated GFR & GFRAA in patients over 70 years has not been determined. Clinical correlation is essential. Serum or plasma urea nitroge n measurement (mass/volume)on 08-12-2021 Urea nitrogen [Mass/Vol] 16 mg/dL 7-18 [facility] Work Phone: Thin prep Papanicolaou smear with manual screeningon 08-12-2021 Thin prep Papanicolaou smear with manual screening 7 5-15 [facility] Work Phone: Absolute lymphocyte counton 07-11-2021 Lymphocytes Auto (Unsp spec) [#/Vol] 2.56 10*3/uL 0.83-4.51 [facility] Work Phone: Basophil percentageon 2021 Basophils/100 WBC (Bld) 0.4 % 0-1 [facility] Work Phone: Chloride [Moles/Vol] 105 mmol/L 98-107 [facility] Work Phone: Eosinophils/100 WBC (Bld) 5.9 % 0-5 [facility] Work Phone: Glucose [Mass/Vol] 85 mg/dL 74-106 [facility] Work Phone: Neutrophils (Bld) [#/Vol] 2.1 10*3/uL 2.0-7.7 [facility] Work Phone: Neutrophils/100 WBC (Bld) 38.0 % 47-70 [facility] Work Phone: Potassium [Moles/Vol] 3.7 mmol/L 3.5-5.1 [facility] Work Phone: Sodium [Moles/Vol] 139 mmol/L 136-145 [facility] Work Phone: WBC (Bld) [#/Vol] 5.6 10*3/uL 4.4-11.0 [facility] Work Phone: Blood erythrocytes count (nu mber/volume)on 07-11-2021 RBC (Bld) [#/Vol] 3.83 10*6/uL 4.6-6.2 [facility]: Blood hemoglobin measurement (mass/volume)on 07-11-2021 Hemoglobin (Bld) [Mass/Vol] 10.8 g/dL 13.0-16.5 [facility] Work Phone: Blood lymphocytes/100 leukoc yteson 07-11-2021 Lymphocytes/100 WBC (Bld) 46.0 % 19-41 [facility] Work Phone: Blood monocytes/100 leukocyt eson 07-11-2021 Monocytes/100 WBC (Bld) 9.7 % 0-10 [facility] Work Phone: Blood platelet mean volumeon 07-11-2021 Platelet mean volume (Bld) [Entitic vol] 10.9 fL 6.2-12.0 [facility] Work Phone: Determination of erythrocyte mean corpuscular volume (MCV)on 07-11-2021 MCV (RBC) [Entitic vol] 88.5 fL 80-94 [facility] Work Phone: Hematocrit Auto (Bld) [Volum e fraction]on 07-11-2021 Hematocrit (Bld) [Volume fraction] 33.9 % 40-54 [facility] Work Phone: Laboratory - Chemistry and C hemistry - challengeon 07-11-2021 CO2 [Moles/Vol] 28.0 mmol/L 21.0-32.0 [facility] Work Phone: Urea nitrogen/Creatinine [Mass ratio] 79.4 mg/mg 10-20 [facility] Work Phone: Laboratory - Hematology and Cell countson 07-11-2021 Erythrocyte distribution width (RBC) [Entitic vol] 44.5 fL 35.1-43.9 [facility] Work Phone: Erythrocyte distribution width (RBC) [Ratio] 13.7 % 11.6-14.6 [facility] Work Phone: Immature granulocytes/100 WBC (Bld) 0.000 % 0.0-0.9 [facility] Work Phone: Comment on above: IG% - Immature Granu locytes (promyelocytes, myelocytes and metamyelocytes) > 1% indicates that a LEFT SHIFT is Present. MCH (RBC) [Entitic mass] 28.2 pg 27.0-32.0 [facility] Work Phone: Nucleated RBC/100 WBC (Bld) [Ratio] 0 % 0-5 [facility] Work Phone: MCHC Auto (RBC) [Mass/Vol]on 07-11-2021 MCHC (RBC) [Mass/Vol] 31.9 g/dL 32-36 [facility] Work Phone: No Panel Informationon 07-11 Estimated GFR (MDRD) Amer 470 mL/min >60 [facility] Work Phone: Comment on above: GFR Calc Estimated GFR (MDRD) Non-Af Amer 388 mL/min >60 [facility] Work Phone: Comment on above: Non- GFR Calc Platelets bldon 07-11-2021 Platelets (Bld) [#/Vol] 163 10*3/uL 150-450 [facility] Work Phone: Serum or plasma calcium jacinta urement (mass/volume)on 07-11-2021 Calcium [Mass/Vol] 8.3 mg/dL 8.5-10.1 [facility] Work Phone: Serum or plasma creatinine m easurement (mass/volume)on 07-11-2021 Creatinine [Mass/Vol] 0.28 mg/dL 0.70-1.30 [facility] Work Phone: Comment on above: The validity of the calculated GFR & GFRAA in patients over 70 years has not been determined. Clinical correlation is essential. Serum or plasma urea nitroge n measurement (mass/volume)on 07-11-2021 Urea nitrogen [Mass/Vol] 22 mg/dL 7-18 [facility] Work Phone: Thin prep Papanicolaou smear with manual screeningon 07-11-2021 Thin prep Papanicolaou smear with manual screening 6 5-15 [facility] Work Phone: Absolute lymphocyte counton 06-11-2021 Lymphocytes Auto (Unsp spec) [#/Vol] 2.71 10*3/uL 0.83-4.51 [facility] Work Phone: Basophil percentageon 2021 Basophils/100 WBC (Bld) 0.5 % 0-1 [facility] Work Phone: Chloride [Moles/Vol] 103 mmol/L 98-107 [facility] Work Phone: Eosinophils/100 WBC (Bld) 5.6 % 0-5 [facility] Work Phone: Glucose [Mass/Vol] 82 mg/dL 74-106 [facility] Work Phone: Neutrophils (Bld) [#/Vol] 2.6 10*3/uL 2.0-7.7 [facility] Work Phone: Neutrophils/100 WBC (Bld) 41.2 % 47-70 [facility] Work Phone: Potassium [Moles/Vol] 4.1 mmol/L 3.5-5.1 [facility]: Sodium [Moles/Vol] 140 mmol/L 136-145 [facility] Work Phone: WBC (Bld) [#/Vol] 6.3 10*3/uL 4.4-11.0 [facility] Work Phone: Blood erythrocytes count (nu mber/volume)on 06-11-2021 RBC (Bld) [#/Vol] 4.05 10*6/uL 4.6-6.2 [facility]: Blood hemoglobin measurement (mass/volume)on 06-11-2021 Hemoglobin (Bld) [Mass/Vol] 11.4 g/dL 13.0-16.5 [facility] Work Phone: Blood lymphocytes/100 leukoc yteson 06-11-2021 Lymphocytes/100 WBC (Bld) 43.0 % 19-41 [facility] Work Phone: Blood monocytes/100 leukocyt eson 06-11-2021 Monocytes/100 WBC (Bld) 9.5 % 0-10 [facility] Work Phone: Blood platelet mean volumeon 06-11-2021 Platelet mean volume (Bld) [Entitic vol] 10.4 fL 6.2-12.0 [facility] Work Phone: Determination of erythrocyte mean corpuscular volume (MCV)on 06-11-2021 MCV (RBC) [Entitic vol] 87.2 fL 80-94 [facility] Work Phone: Hematocrit Auto (Bld) [Volum e fraction]on 06-11-2021 Hematocrit (Bld) [Volume fraction] 35.3 % 40-54 [facility] Work Phone: Laboratory - Chemistry and C hemistry - challengeon 06-11-2021 CO2 [Moles/Vol] 32.0 mmol/L 21.0-32.0 [facility] Work Phone: Urea nitrogen/Creatinine [Mass ratio] 71.4 mg/mg 10-20 [facility] Work Phone: Laboratory - Hematology and Cell countson 06-11-2021 Erythrocyte distribution width (RBC) [Entitic vol] 44.3 fL 35.1-43.9 [facility] Work Phone: Erythrocyte distribution width (RBC) [Ratio] 14.0 % 11.6-14.6 [facility] Work Phone: Immature granulocytes/100 WBC (Bld) 0.200 % 0.0-0.9 [facility] Work Phone: Comment on above: IG% - Immature Granu locytes (promyelocytes, myelocytes and metamyelocytes) > 1% indicates that a LEFT SHIFT is Present. MCH (RBC) [Entitic mass] 28.1 pg 27.0-32.0 [facility] Work Phone: Nucleated RBC/100 WBC (Bld) [Ratio] 0 % 0-5 [facility] Work Phone: MCHC Auto (RBC) [Mass/Vol]on 06-11-2021 MCHC (RBC) [Mass/Vol] 32.3 g/dL 32-36 [facility] Work Phone: No Panel Informationon 06-11 Estimated GFR (MDRD) Amer 492 mL/min >60 [facility] Work Phone: Comment on above: GFR Calc Estimated GFR (MDRD) Non-Af Amer 407 mL/min >60 [facility] Work Phone: Comment on above: Non- GFR Calc Platelets bldon 06-11-2021 Platelets (Bld) [#/Vol] 185 10*3/uL 150-450 [facility] Work Phone: Serum or plasma calcium jacinta urement (mass/volume)on 06-11-2021 Calcium [Mass/Vol] 8.7 mg/dL 8.5-10.1 [facility] Work Phone: Serum or plasma creatinine m easurement (mass/volume)on 06-11-2021 Creatinine [Mass/Vol] 0.27 mg/dL 0.70-1.30 [facility] Work Phone: Comment on above: The validity of the calculated GFR & GFRAA in patients over 70 years has not been determined. Clinical correlation is essential. Serum or plasma urea nitroge n measurement (mass/volume)on 06-11-2021 Urea nitrogen [Mass/Vol] 19 mg/dL 7-18 [facility] Work Phone: Thin prep Papanicolaou smear with manual screeningon 06-11-2021 Thin prep Papanicolaou smear with manual screening 5 5-15 [facility] Work Phone: Absolute lymphocyte counton 05-19-2021 Lymphocytes Auto (Unsp spec) [#/Vol] 2.08 10*3/uL 0.83-4.51 [facility] Work Phone: Basophil percentageon 2021 Basophils/100 WBC (Bld) 0.5 % 0-1 [facility] Work Phone: Chloride [Moles/Vol] 104 mmol/L 98-107 [facility] Work Phone: Eosinophils/100 WBC (Bld) 9.4 % 0-5 [facility] Work Phone: Glucose [Mass/Vol] 98 mg/dL 74-106 [facility] Work Phone: Neutrophils (Bld) [#/Vol] 3.2 10*3/uL 2.0-7.7 [facility] Work Phone: Neutrophils/100 WBC (Bld) 49.4 % 47-70 [facility] Work Phone: [phone] Potassium [Moles/Vol] 4.2 mmol/L 3.5-5.1 [facility] Work Phone: [phone] Sodium [Moles/Vol] 136 mmol/L 136-145 [facility] Work Phone: [phone] WBC (Bld) [#/Vol] 6.4 10*3/uL 4.4-11.0 [facility] Work Phone: [phone] Blood erythrocytes count (nu mber/volume)on 05-19-2021 RBC (Bld) [#/Vol] 4.21 10*6/uL 4.6-6.2 [facility] Work Phone: Blood hemoglobin measurement (mass/volume)on 05-19-2021 Hemoglobin (Bld) [Mass/Vol] 11.7 g/dL 13.0-16.5 [facility] Work Phone: Blood lymphocytes/100 leukoc yteson 05-19-2021 Lymphocytes/100 WBC (Bld) 32.4 % 19-41 [facility] Work Phone: [phone] Blood monocytes/100 leukocyt eson 05-19-2021 Monocytes/100 WBC (Bld) 8.1 % 0-10 [facility] Work Phone: Blood platelet adequacy dete ction by light microscopyon 05-19-2021 Platelets LM Ql (Bld) SLT DEC ADEQ [facility] Work Phone: Blood platelet mean volumeon 05-19-2021 Platelet mean volume (Bld) [Entitic vol] 10.3 fL 6.2-12.0 [facility] Work Phone: Determination of erythrocyte mean corpuscular volume (MCV)on 05-19-2021 MCV (RBC) [Entitic vol] 86.7 fL 80-94 [facility] Work Phone: Hematocrit Auto (Bld) [Volum e fraction]on 05-19-2021 Hematocrit (Bld) [Volume fraction] 36.5 % 40-54 [facility] Work Phone: Laboratory - Chemistry and C hemistry - challengeon 05-19-2021 CO2 [Moles/Vol] 26.0 mmol/L 21.0-32.0 [facility] Work Phone: Urea nitrogen/Creatinine [Mass ratio] 32.7 mg/mg 10-20 [facility] Work Phone: Laboratory - Hematology and Cell countson 05-19-2021 Anisocytosis Ql (Bld) RARE [facility] Work Phone: Erythrocyte distribution width (RBC) [Entitic vol] 44.8 fL 35.1-43.9 [facility] Work Phone: Erythrocyte distribution width (RBC) [Ratio] 14.2 % 11.6-14.6 [facility] Work Phone: Immature granulocytes/100 WBC (Bld) 0.200 % 0.0-0.9 [facility] Work Phone: Comment on above: IG% - Immature Granu locytes (promyelocytes, myelocytes and metamyelocytes) > 1% indicates that a LEFT SHIFT is Present. MCH (RBC) [Entitic mass] 27.8 pg 27.0-32.0 [facility] Work Phone: Nucleated RBC/100 WBC (Bld) [Ratio] 0 % 0-5 [facility] Work Phone: MCHC Auto (RBC) [Mass/Vol]on 05-19-2021 MCHC (RBC) [Mass/Vol] 32.1 g/dL 32-36 [facility] Work Phone: No Panel Informationon 05-19 Estimated Creatinine Clearance Calc 189.56 ml/min [facility] Work Phone: Estimated GFR (MDRD) Amer 340 mL/min >60 [facility] Work Phone: Comment on above: GFR Calc Estimated GFR (MDRD) Non-Af Amer 281 mL/min >60 [facility] Work Phone: Comment on above: Non- GFR Calc Platelets bldon 05-19-2021 Platelets (Bld) [#/Vol] 134 10*3/uL 150-450 [facility] Work Phone: RBC morphologyon 05-19-2021 RBC morphology finding Nom (Bld) N CHROM NORMAL NORM C&C [facility] Work Phone: Serum or plasma calcium jacinta urement (mass/volume)on 05-19-2021 Calcium [Mass/Vol] 8.8 mg/dL 8.5-10.1 [facility] Work Phone: Serum or plasma creatinine m easurement (mass/volume)on 05-19-2021 Creatinine [Mass/Vol] 0.37 mg/dL 0.70-1.30 [facility] Work Phone: Comment on above: The validity of the calculated GFR & GFRAA in patients over 70 years has not been determined. Clinical correlation is essential. Serum or plasma urea nitroge n measurement (mass/volume)on 05-19-2021 Urea nitrogen [Mass/Vol] 12 mg/dL 7-18 [facility] Work Phone: Thin prep Papanicolaou smear with manual screeningon 05-19-2021 Thin prep Papanicolaou smear with manual screening 6 5-15 [facility] Work Phone: Absolute lymphocyte counton 05-13-2021 Lymphocytes Auto (Unsp spec) [#/Vol] 3.26 10*3/uL 0.83-4.51 [facility] Work Phone: Basophil percentageon 2021 Basophils/100 WBC (Bld) 0.1 % 0-1 [facility] Work Phone: Chloride [Moles/Vol] 108 mmol/L 98-107 [facility] Work Phone: Eosinophils/100 WBC (Bld) 6.0 % 0-5 [facility] Work Phone: Glucose [Mass/Vol] 107 mg/dL 74-106 [facility] Work Phone: Comment on above: Fasting Glucose resu lt from 100 to 125 mg/dL suggests IMPAIRED HOMEOSTASIS per A.D.A. criteria. Neutrophils (Bld) [#/Vol] 2.9 10*3/uL 2.0-7.7 [facility] Work Phone: Neutrophils/100 WBC (Bld) 39.4 % 47-70 [facility] Work Phone: Potassium [Moles/Vol] 3.8 mmol/L 3.5-5.1 [facility] Work Phone: [phone] Sodium [Moles/Vol] 140 mmol/L 136-145 [facility] Work Phone: WBC (Bld) [#/Vol] 7.3 10*3/uL 4.4-11.0 [facility] Work Phone: Blood erythrocytes count (nu mber/volume)on 05-13-2021 RBC (Bld) [#/Vol] 4.06 10*6/uL 4.6-6.2 [facility] Work Phone: Blood hemoglobin measurement (mass/volume)on 05-13-2021 Hemoglobin (Bld) [Mass/Vol] 11.4 g/dL 13.0-16.5 [facility] Work Phone: Blood lymphocytes/100 leukoc yteson 05-13-2021 Lymphocytes/100 WBC (Bld) 44.6 % 19-41 [facility] Work Phone: Blood monocytes/100 leukocyt eson 05-13-2021 Monocytes/100 WBC (Bld) 9.8 % 0-10 [facility] Work Phone: Blood platelet mean volumeon 05-13-2021 Platelet mean volume (Bld) [Entitic vol] 10.6 fL 6.2-12.0 [facility] Work Phone: Determination of erythrocyte mean corpuscular volume (MCV)on 05-13-2021 MCV (RBC) [Entitic vol] 87.4 fL 80-94 [facility] Work Phone: Hematocrit Auto (Bld) [Volum e fraction]on 05-13-2021 Hematocrit (Bld) [Volume fraction] 35.5 % 40-54 [facility] Work Phone: Laboratory - Chemistry and C hemistry - challengeon 05-13-2021 CO2 [Moles/Vol] 29.0 mmol/L 21.0-32.0 [facility] Work Phone: Urea nitrogen/Creatinine [Mass ratio] 46.0 mg/mg 10-20 [facility] Work Phone: Laboratory - Hematology and Cell countson 05-13-2021 Erythrocyte distribution width (RBC) [Entitic vol] 45.3 fL 35.1-43.9 [facility] Work Phone: Erythrocyte distribution width (RBC) [Ratio] 14.2 % 11.6-14.6 [facility] Work Phone: Immature granulocytes/100 WBC (Bld) 0.100 % 0.0-0.9 [facility] Work Phone: Comment on above: IG% - Immature Granu locytes (promyelocytes, myelocytes and metamyelocytes) > 1% indicates that a LEFT SHIFT is Present. MCH (RBC) [Entitic mass] 28.1 pg 27.0-32.0 [facility] Work Phone: Nucleated RBC/100 WBC (Bld) [Ratio] 0.3 % 0-5 [facility] Work Phone: MCHC Auto (RBC) [Mass/Vol]on 05-13-2021 MCHC (RBC) [Mass/Vol] 32.1 g/dL 32-[facility]: No Panel Informationon 05-13 Estimated GFR (MDRD) Amer 389 mL/min >60 [facility] Work Phone: Comment on above: GFR Calc Estimated GFR (MDRD) Non-Af Amer 322 mL/min >60 [facility] Work Phone: Comment on above: Non- GFR Calc Platelets bldon 05-13-2021 Platelets (Bld) [#/Vol] 170 10*3/uL 150-450 [facility] Work Phone: Serum or plasma calcium jacinta urement (mass/volume)on 05-13-2021 Calcium [Mass/Vol] 8.9 mg/dL 8.5-10.1 [facility] Work Phone: Serum or plasma creatinine m easurement (mass/volume)on 05-13-2021 Creatinine [Mass/Vol] 0.33 mg/dL 0.70-1.30 [facility] Work Phone: Comment on above: The validity of the calculated GFR & GFRAA in patients over 70 years has not been determined. Clinical correlation is essential. Serum or plasma urea nitroge n measurement (mass/volume)on 05-13-2021 Urea nitrogen [Mass/Vol] 15 mg/dL 7-18 [facility] Work Phone: Thin prep Papanicolaou smear with manual screeningon 05-13-2021 Thin prep Papanicolaou smear with manual screening 3 5-15 [facility] Work Phone: Bronchoalveolar lavage cultu re with Gram stainon 04-28-2021 Respiratory Culture Pseudomonas aeroginosa [facility] Work Phone: Respiratory Culture Streptococcus agalactiae (B) [facility] Work Phone: Respiratory Culture Positive [facility] Work Phone: Gram stain for investigation of transfusion reactionon 04-28-2021 Microscopic observation Gram stain Nom (Unsp spec) [facility] Work Phone: Basophil percentageon 2021 Chloride [Moles/Vol] 105 mmol/L 98-[address] [facility] [address] [facility] Work Phone: Glucose [Mass/Vol] 93 mg/dL 74-106 [facility]: Potassium [Moles/Vol] 4.0 mmol/L 3.5-5.1 [facility] Work Phone: Sodium [Moles/Vol] 139 mmol/L 136-145 [facility] Work Phone: WBC (Bld) [#/Vol] 6.8 10*3/uL 4.4-11.0 [facility] Work Phone: Blood erythrocytes count (nu mber/volume)on 04-21-2021 RBC (Bld) [#/Vol] 4.12 10*6/uL 4.6-6.2 [facility]: Blood hemoglobin measurement (mass/volume)on 04-21-2021 Hemoglobin (Bld) [Mass/Vol] 12.2 g/dL 13.0-16.5 [facility] Work Phone: Blood platelet mean volumeon 04-21-2021 Platelet mean volume (Bld) [Entitic vol] 11.3 fL 6.2-12.0 [facility] Work Phone: Determination of erythrocyte mean corpuscular volume (MCV)on 04-21-2021 MCV (RBC) [Entitic vol] 86.9 fL 80-94 [facility] Work Phone: Hematocrit Auto (Bld) [Volum e fraction]on 04-21-2021 Hematocrit (Bld) [Volume fraction] 35.8 % 40-54 [facility] Work Phone: Laboratory - Chemistry and C hemistry - challengeon 04-21-2021 CO2 [Moles/Vol] 29.0 mmol/L 21.0-32.0 [facility] Work Phone: Urea nitrogen/Creatinine [Mass ratio] 59.4 mg/mg 10-20 [facility] Work Phone: Laboratory - Hematology and Cell countson 04-21-2021 Erythrocyte distribution width (RBC) [Entitic vol] 43.7 fL 35.1-43.9 [facility] Work Phone: Erythrocyte distribution width (RBC) [Ratio] 13.9 % 11.6-14.6 [facility] Work Phone: MCH (RBC) [Entitic mass] 29.6 pg 27.0-32.0 [facility] Work Phone: MCHC Auto (RBC) [Mass/Vol]on 04-21-2021 MCHC (RBC) [Mass/Vol] 34.1 g/dL 32- [facility] Work Phone: No Panel Informationon 04-21 Estimated GFR (MDRD) Amer 424 mL/min >60 [facility] Work Phone: Comment on above: GFR Calc Estimated GFR (MDRD) Non-Af Amer 350 mL/min >60 [facility] Work Phone: Comment on above: Non- GFR Calc Platelets bldon 04-21-2021 Platelets (Bld) [#/Vol] 185 10*3/uL 150-450 [facility] Work Phone: Serum or plasma calcium jacinta urement (mass/volume)on 04-21-2021 Calcium [Mass/Vol] 8.6 mg/dL 8.5-10.1 [facility] Work Phone: Serum or plasma creatinine m easurement (mass/volume)on 04-21-2021 Creatinine [Mass/Vol] 0.30 mg/dL 0.70-1.30 [facility] Work Phone: Comment on above: The validity of the calculated GFR & GFRAA in patients over 70 years has not been determined. Clinical correlation is essential. Serum or plasma urea nitroge n measurement (mass/volume)on 04-21-2021 Urea nitrogen [Mass/Vol] 18 mg/dL 7-18 [facility] Work Phone: Thin prep Papanicolaou smear with manual screeningon 04-21-2021 Thin prep Papanicolaou smear with manual screening 5 5-15 [facility] Work Phone: Basophil percentageon 2021 Chloride [Moles/Vol] 103 mmol/L 98-[facility]: Glucose [Mass/Vol] 90 mg/dL 74-106 [facility] Work Phone: Potassium [Moles/Vol] 3.7 mmol/L 3.5-5.1 [facility] Work Phone: Sodium [Moles/Vol] 137 mmol/L 136-145 [facility] Work Phone: WBC (Bld) [#/Vol] 5.6 10*3/uL 4.4-11.0 [facility] Work Phone: Blood erythrocytes count (nu mber/volume)on 03-25-2021 RBC (Bld) [#/Vol] 4.03 10*6/uL 4.6-6.2 [facility] Work Phone: Blood hemoglobin measurement (mass/volume)on 03-25-2021 Hemoglobin (Bld) [Mass/Vol] 11.5 g/dL 13.0-16.5 [facility] Work Phone: Blood platelet mean volumeon 03-25-2021 Platelet mean volume (Bld) [Entitic vol] 10.5 fL 6.2-12.0 [facility] Work Phone: Determination of erythrocyte mean corpuscular volume (MCV)on 03-25-2021 MCV (RBC) [Entitic vol] 86.8 fL 80-94 [facility] Work Phone: Hematocrit Auto (Bld) [Volum e fraction]on 03-25-2021 Hematocrit (Bld) [Volume fraction] 35.0 % 40-54 [facility] Work Phone: Laboratory - Chemistry and C hemistry - challengeon 03-25-2021 CO2 [Moles/Vol] 28.0 mmol/L 21.0-32.0 [facility] Work Phone: Urea nitrogen/Creatinine [Mass ratio] 54.3 mg/mg 10-20 [facility] Work Phone: Laboratory - Hematology and Cell countson 03-25-2021 Erythrocyte distribution width (RBC) [Entitic vol] 44.0 fL 35.1-43.9 [facility] Work Phone: Erythrocyte distribution width (RBC) [Ratio] 13.7 % 11.6-14.6 [facility] Work Phone: MCH (RBC) [Entitic mass] 28.5 pg 27.0-32.0 [facility] Work Phone: MCHC Auto (RBC) [Mass/Vol]on 03-25-2021 MCHC (RBC) [Mass/Vol] 32.9 g/dL 32-36 [facility] Work Phone: No Panel Informationon 03-25 Estimated GFR (MDRD) Amer 359 mL/min >60 [facility] Work Phone: Comment on above: GFR Calc Estimated GFR (MDRD) Non-Af Amer 297 mL/min >60 [facility] Work Phone: Comment on above: Non- GFR Calc Platelets bldon 03-25-2021 Platelets (Bld) [#/Vol] 175 10*3/uL 150-450 [facility] Work Phone: Serum or plasma calcium jacinta urement (mass/volume)on 03-25-2021 Calcium [Mass/Vol] 8.2 mg/dL 8.5-10.1 [facility] Work Phone: Serum or plasma creatinine m easurement (mass/volume)on 03-25-2021 Creatinine [Mass/Vol] 0.35 mg/dL 0.70-1.30 [facility] Work Phone: Comment on above: The validity of the calculated GFR & GFRAA in patients over 70 years has not been determined. Clinical correlation is essential. Serum or plasma urea nitroge n measurement (mass/volume)on 03-25-2021 Urea nitrogen [Mass/Vol] 19 mg/dL 7-18 [facility] Work Phone: Thin prep Papanicolaou smear with manual screeningon 03-25-2021 Thin prep Papanicolaou smear with manual screening 6 5-15 [facility] Work Phone: Basophil percentageon 2021 Chloride [Moles/Vol] 104 mmol/L 98-107 [facility] Work Phone: Glucose [Mass/Vol] 130 mg/dL 74-106 [facility] Work Phone: Comment on above: Fasting Glucose resu lt greater than or equal to 126 mg/dL suggests DIABETES MELLITUS per A.D.A. criteria.Please note revised GLUCOSE reference range effective 2017. Potassium [Moles/Vol] 3.2 mmol/L 3.5-5.1 [facility] Work Phone: Sodium [Moles/Vol] 139 mmol/L 136-145 [facility] Work Phone: WBC (Bld) [#/Vol] 5.2 10*3/uL 4.4-11.0 [facility] Work Phone: Blood erythrocytes count (nu mber/volume)on 02-24-2021 RBC (Bld) [#/Vol] 3.88 10*6/uL 4.6-6.2 [facility] Work Phone: Blood hemoglobin measurement (mass/volume)on 02-24-2021 Hemoglobin (Bld) [Mass/Vol] 10.8 g/dL 13.0-16.5 [facility] Work Phone: Blood platelet mean volumeon 02-24-2021 Platelet mean volume (Bld) [Entitic vol] 10.7 fL 6.2-12.0 [facility] Work Phone: Determination of erythrocyte mean corpuscular volume (MCV)on 02-24-2021 MCV (RBC) [Entitic vol] 87.4 fL 80-94 [facility] Work Phone: Hematocrit Auto (Bld) [Volum e fraction]on 02-24-2021 Hematocrit (Bld) [Volume fraction] 33.9 % 40-54 [facility] Work Phone: Laboratory - Chemistry and C hemistry - challengeon 02-24-2021 CO2 [Moles/Vol] 26.0 mmol/L 21.0-32.0 [facility] Work Phone: Urea nitrogen/Creatinine [Mass ratio] 49.8 mg/mg 10-20 [facility] Work Phone: Laboratory - Hematology and Cell countson 02-24-2021 Erythrocyte distribution width (RBC) [Entitic vol] 45.6 fL 35.1-43.9 [facility] Work Phone: Erythrocyte distribution width (RBC) [Ratio] 14.3 % 11.6-14.6 [facility] Work Phone: MCH (RBC) [Entitic mass] 27.8 pg 27.0-32.0 [facility] Work Phone: MCHC Auto (RBC) [Mass/Vol]on 02-24-2021 MCHC (RBC) [Mass/Vol] 31.9 g/dL 32-[facility] No Panel Informationon 02-24 Estimated GFR (MDRD) Amer 463 mL/min >60 [facility] Work Phone: Comment on above: GFR Calc Estimated GFR (MDRD) Non-Af Amer 382 mL/min >60 [facility] Work Phone: Comment on above: Non- GFR Calc Platelets bldon 02-24-2021 Platelets (Bld) [#/Vol] 175 10*3/uL 150-450 [facility] Work Phone: Serum or plasma calcium jacinta urement (mass/volume)on 02-24-2021 Calcium [Mass/Vol] 8.3 mg/dL 8.5-10.1 [facility] Work Phone: Serum or plasma creatinine m easurement (mass/volume)on 02-24-2021 Creatinine [Mass/Vol] 0.28 mg/dL 0.70-1.30 [facility] Work Phone: Comment on above: The validity of the calculated GFR & GFRAA in patients over 70 years has not been determined. Clinical correlation is essential. Serum or plasma urea nitroge n measurement (mass/volume)on 02-24-2021 Urea nitrogen [Mass/Vol] 14 mg/dL 7-18 [facility] Work Phone: Thin prep Papanicolaou smear with manual screeningon 02-24-2021 Thin prep Papanicolaou smear with manual screening 9 5-15 [facility] Work Phone: Basophil percentageon 2020 Chloride [Moles/Vol] 103 mmol/L 98-107 [facility] Work Phone: Glucose [Mass/Vol] 89 mg/dL 74-106 [facility] Work Phone: Comment on above: Please note revised GLUCOSE reference range effective 2017. Potassium [Moles/Vol] 4.2 mmol/L 3.5-5.1 [facility] Work Phone: Sodium [Moles/Vol] 138 mmol/L 136-145 [facility] Work Phone: WBC (Bld) [#/Vol] 7.3 10*3/uL 4.4-11.0 [facility] Work Phone: Blood erythrocytes count (nu mber/volume)on 01-28-2021 RBC (Bld) [#/Vol] 4.27 10*6/uL 4.6-6.2 [facility] Work Phone: Blood hemoglobin measurement (mass/volume)on 01-28-2021 Hemoglobin (Bld) [Mass/Vol] 11.7 g/dL 13.0-16.5 [facility] Work Phone: Blood platelet mean volumeon 01-28-2021 Platelet mean volume (Bld) [Entitic vol] 10.6 fL 6.2-12.0 [facility] Work Phone: Determination of erythrocyte mean corpuscular volume (MCV)on 01-28-2021 MCV (RBC) [Entitic vol] 85.2 fL 80-94 [facility] Work Phone: Hematocrit Auto (Bld) [Volum e fraction]on 01-28-2021 Hematocrit (Bld) [Volume fraction] 36.4 % 40-54 [facility] Work Phone: Laboratory - Chemistry and C hemistry - challengeon 01-28-2021 CO2 [Moles/Vol] 29.0 mmol/L 21.0-32.0 [facility] Work Phone: Urea nitrogen/Creatinine [Mass ratio] 41.8 mg/mg 10-20 [facility] Work Phone: Laboratory - Hematology and Cell countson 01-28-2021 Erythrocyte distribution width (RBC) [Entitic vol] 44.3 fL 35.1-43.9 [facility] Work Phone: Erythrocyte distribution width (RBC) [Ratio] 14.3 % 11.6-14.6 [facility] Work Phone: MCH (RBC) [Entitic mass] 27.4 pg 27.0-32.0 [facility] Work Phone: MCHC Auto (RBC) [Mass/Vol]on 01-28-2021 MCHC (RBC) [Mass/Vol] 32.1 g/dL 32-36 [facility] Work Phone: No Panel Informationon 01-28 Estimated GFR (MDRD) Amer 378 mL/min >60 [facility] Work Phone: Comment on above: GFR Calc Estimated GFR (MDRD) Non-Af Amer 312 mL/min >60 [facility] Work Phone: Comment on above: Non- GFR Calc Platelets bldon 01-28-2021 Platelets (Bld) [#/Vol] 233 10*3/uL 150-450 [facility] Work Phone: Serum or plasma calcium jacinta urement (mass/volume)on 01-28-2021 Calcium [Mass/Vol] 8.8 mg/dL 8.5-10.1 [facility] Work Phone: Serum or plasma creatinine m easurement (mass/volume)on 01-28-2021 Creatinine [Mass/Vol] 0.34 mg/dL 0.70-1.30 [facility] Work Phone: Comment on above: The validity of the calculated GFR & GFRAA in patients over 70 years has not been determined. Clinical correlation is essential. Serum or plasma urea nitroge n measurement (mass/volume)on 01-28-2021 Urea nitrogen [Mass/Vol] 14 mg/dL 7-18 [facility] Work Phone: Thin prep Papanicolaou smear with manual screeningon 01-28-2021 Thin prep Papanicolaou smear with manual screening 6 5-15 [facility] Work Phone: Office Visit: Peg changeon 0 10-09-2016 Documentation of current medications (procedure) Done Invalid Interpretation Code [facility] [employer] Work Phone: Fall risk assessment No Invalid Interpretation Code [facility] [employer] Work Phone: Tobacco smoking status NHIS Never Invalid Interpretation Code [facility] [employer] Work Phone: Tobacco use [facility]PH[facility] Never smoker Invalid Interpretation Code [facility] [employer] Work Phone: Lab Report: BNP,B-Type NATRI URETIC PEPTIDEon 08-28-2016 BNP 9.5 pg/mL Invalid Interpretation Code 0-100 [facility] Work Phone: [phone] Lab Report: Basic Metabolic Profile (BMP)on 08-28-2016 Anion gap 4 mmol/L Low 5-15 [facility] Work Phone: [phone] BUN/Creatinine Ratio 76.9 RATIO High 10-[address] [facility] Work Phone: [phone] Calcium 8.7 mg/dL Invalid Interpretation Code 8.5-10.1 [facility] Work Phone: [phone] Chloride 106 mmol/L Invalid Interpretation Code 98-107 [facility] Work Phone: [phone] CO2 31.0 mmol/L Invalid Interpretation Code 21.0-32.0 [facility] Work Phone: [phone] Creatinine 0.32 mg/dL Low 0.70-1.30 [facility] [employer] Work Phone: [phone] eGFR (non-black) 401 mL/min/{1.73_m2} Invalid Interpretation Code >60 [facility] Work Phone: [phone] eGFR (non-black) 332 mL/min/{1.73_m2} Invalid Interpretation Code >60 [facility] Work Phone: [phone] Glucose 114 mg/dL High 70-110 [facility] Work Phone: [phone] Potassium 3.6 mmol/L Invalid Interpretation Code 3.5-5.1 [facility] Work Phone: [phone] Sodium 141 mmol/L Invalid Interpretation Code 136-145 [facility] Work Phone: [phone] Urea nitrogen 25 mg/dL High 7-18 [facility] Work Phone: [phone] Office Visiton 08-28-2016 Documentation of current medications (procedure) Done Invalid Interpretation Code [facility] Work Phone: [phone] Fall risk assessment No Invalid Interpretation Code [facility] Work Phone: [phone] 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 Erythrocytes (RBC) 3.93 10*6/uL [facility] Work Phone: [phone] Hematocrit (HCT) 35.4 % Low [facility] Work Phone: [phone] Hemoglobin (HGB) 11.3 g/dL Low [facility] Work Phone: [phone] MCH 28.8 pg Invalid Interpretation Code [facility] Work Phone: [phone] MCHC 31.9 g/dL Low [facility] Work Phone: [phone] MCV 90.1 fL Invalid Interpretation Code [facility] Work Phone: [phone] Platelets 89 10*3/mm3 Low [facility] Work Phone: [phone] PMV by Garrett 12.6 fL High [facility] Work Phone: [phone] RDW-CA 15.7 % High [facility] Work Phone: [phone] WBC (Leukocytes) 4.1 10*3/uL Low [facility] Work Phone: [phone] Office Visit: S/P [place] [facility] 06-15-2016 Documentation of current medications (procedure) Done Invalid Interpretation Code [facility] Work Phone: [phone] Fall risk assessment No Invalid Interpretation Code [facility] Work Phone: [phone] Tobacco smoking status NHIS Never Invalid Interpretation Code [facility] Work Phone: [phone] Tobacco use [facility] Never smoker Invalid Interpretation Code [facility] Work Phone: [phone] Lab Report: CBC-Complete Blo od Cnt No Diffon 05-28-2016 Erythrocytes (RBC) 3.67 10*6/uL Low 4.6-6.[address] [facility] Work Phone: [phone] Hematocrit (HCT) 32.9 % Low 40-54 [facility] Work Phone: [phone] Hemoglobin (HGB) 10.9 g/dL Low 13.0-16.5 [facility] Work Phone: [phone] MCH 29.7 pg Invalid Interpretation Code 27.0-32.0 [facility] Work Phone: [phone] MCHC 33.1 G/GL Invalid Interpretation Code 32-36 [facility] Work Phone: [phone] MCV 89.6 fL Invalid Interpretation Code 80-94 [facility] Work Phone: [phone] Platelets 115 10*3/mm3 Low 150-450 [facility] Work Phone: [phone] PMV by Garrett 11.5 fL Invalid Interpretation Code 6.2-12.0 [facility] Work Phone: [phone] RDW-CA 14.9 % High 11.6-14.6 [facility] Work Phone: [phone] red blood cell distribution width, size density 48.2 fL High 35.1-43.9 [facility] Work Phone: [phone] WBC (Leukocytes) 5.4 10*3/uL Invalid Interpretation Code 4.4-11.0 [facility] Work Phone: [phone] Lab Report: Partial Thrombop last Timeon 05-28-2016 aPTT 24.9 s Invalid Interpretation Code 24.1-36.2 [facility] Work Phone: [phone] Lab Report: Prothrombin Time w/INRon 05-28-2016 Coagulation tissue factor induced in platelet poor plasma 12.7 s Invalid Interpretation Code 11.7-14.9 [facility] Work Phone: [phone] INR in blood by coagulation 1.0 {INR} Invalid Interpretation Code [facility] Work Phone: [phone] Microbiology: Culture, Wound on 01-10-2016 wound culture Vancomycin $ 1 S Invalid Interpretation Code [facility] Work Phone: [phone] Lab Report: Basic Metabolic Profile (BMP)on 09-19-2015 Anion gap 10 mmol/L Invalid Interpretation Code 5-15 [facility] Work Phone: [phone] BUN/Creatinine Ratio 10.9 RATIO Invalid Interpretation Code 10-20 [facility] Work Phone: [phone] Calcium 8.2 mg/dL Low 8.5-10.1 [facility] [facility] Work Phone: [phone] Chloride 109 mmol/L High 98-107 [facility] Work Phone: [phone] CO2 23.0 mmol/L Invalid Interpretation Code 21.0-32.0 [facility] Work Phone: [phone] Creatinine 361.97 mL/min Invalid Interpretation Code [facility] Work Phone: [phone] Creatinine 0.28 mg/dL Low 0.70-1.30 [facility] Work Phone: [phone] eGFR (non-black) 403 mL/min/{1.73_m2} Invalid Interpretation Code >60 [facility] Work Phone: [phone] eGFR (non-black) 487 mL/min/{1.73_m2} Invalid Interpretation Code >60 [facility] Work Phone: [phone] Glucose 66 mg/dL Low 70-110 [facility] Work Phone: [phone] Potassium 3.1 mmol/L Low 3.5-5.1 [facility] Work Phone: [phone] Sodium 142 mmol/L Invalid Interpretation Code 136-145 [facility] Work Phone: [phone] Urea nitrogen 3 mg/dL Low 7-18 [facility] Work Phone: [phone] Lab Report: CBC W/Diff, Auto matedon 09-19-2015 Basophils/100 leukocytes 0.2 % Invalid Interpretation Code 0-1 [facility] Work Phone: [phone] Eosinophils/100 leukocytes 1.8 % Invalid Interpretation Code 0-5 [facility] Work Phone: [phone] immature granulocytes, percentage of total cells, blood 0.200 % Invalid Interpretation Code 0.0-0.9 [facility] Work Phone: [phone] Lymphocytes 2.07 X10 3/UL Invalid Interpretation Code 0.83-4.51 [facility] Work Phone: [phone] Lymphocytes/100 leukocytes 40.9 % Invalid Interpretation Code 19-41 [facility] Work Phone: [phone] Monocytes/100 leukocytes 13.8 % High 0-10 [facility] Work Phone: [phone] neutrophil count, blood 2.2 X10 3/UL Invalid Interpretation Code 2.0-7.7 [facility] Work Phone: Neutrophils/100 leukocytes 43.1 % Low 47-70 [facility] Work Phone: 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 Work Phone: Respiratory Culture Streptococcus agalactiae (B) [facility] Work Phone: Respiratory Culture Positive [facility] Work Phone: Gram stain for investigation of transfusion reaction Microscopic observation Gram stain Nom (Unsp spec) [facility] Work Phone: Laboratory - Microbiology an d Antimicrobial susceptibility Respiratory pathogens DNA and RNA 12b panel YAYO+probe (Unsp spec) [facility] Work Phone: No Panel Information Respiratory Panel (PCR) [facility] Work Phone: SARS-CoV-2 & FLU Antigen (Rapid) [facility] Work Phone: Vital Signs Date Time Vital Sign Value Performing Clinician Facility 06-15-2024 13:47-0400 Body height 152.[address] Chente Conn MD Work Phone: [facility] 06-15-2024 13:47-0400 Body mass index (BMI) [Ratio] 33.2 kg/m2 Dr. Chente Conn MD Work Phone: [facility] 06-15-2024 13:47-0400 Body weight 77.[address] Chente Conn MD Work Phone: [facility] 06-15-2024 13:47-0400 Diastolic blood pressure 59 mm[Hg] Dr. Chente Conn MD Work Phone: [facility] 06-15-2024 13:47-0400 Heart rate 58 /min Dr. Chente Conn MD Work Phone: [facility] 06-15-2024 13:47-0400 Inhaled oxygen flow rate 2 L/min Dr. Chente Conn MD Work Phone: [facility] 06-15-2024 13:47-0400 SaO2% (BldA) [Mass fraction] 95 % Dr. Chente Conn MD Work Phone: [facility] 06-15-2024 13:47-0400 Systolic blood pressure 87 mm[Hg] Dr. Chente Conn MD Work Phone: [phone] [address] 04-04-2024 08:14-0500 Body mass index (BMI) [Ratio] 33.2 kg/m2 Dr. Chente Conn MD Work Phone: [phone] [place] [address] 04-04-2024 08:14-0500 Body temperature 97.1 [degF] Dr. Chente Conn MD Work Phone: [phone] [place] [address] 04-04-2024 08:14-0500 Body weight 77.[address] Chente Conn MD Work Phone: [phone](513)[phone] [address] 04-04-2024 08:14-0500 Diastolic blood pressure 78 mm[Hg] Dr. Chente Conn MD Work Phone: [phone](319)[phone] [place] [address] 04-04-2024 08:14-0500 Heart rate 73 /min Dr. Chente Conn MD Work Phone: [phone] [place] [address] 04-04-2024 08:14-0500 Inhaled oxygen flow rate 2 L/min Dr. Chente Conn MD Work Phone: [phone] [place] [address] 04-04-2024 08:14-0500 Respiratory rate 20 /min Dr. Chente Conn MD Work Phone: [phone] [address] 04-04-2024 08:14-0500 SaO2% (BldA) [Mass fraction] 97 % Dr. Chente Conn MD Work Phone: [phone] [place] [address] 04-04-2024 08:14-0500 Systolic blood pressure 124 mm[Hg] Dr. Chente Conn MD Work Phone: [phone] [address] 2024 22:05-0500 Body temperature 97.9 [degF] Dr. Chente Conn MD Work Phone: [phone] [place] [address] 2024 22:05-0500 Diastolic blood pressure 106 mm[Hg] Dr. Chente Conn MD Work Phone: 9(680)305-529054 [place] [address] 2024 22:05-0500 Heart rate 72 /min Dr. Chente Conn MD Work Phone: 6(237)754-197777 [place] [address] 2024 22:05-0500 Respiratory rate 20 /min Dr. Chente Conn MD Work Phone: 5(279)417-196577 [place] [address] 2024 22:05-0500 SaO2% (BldA) [Mass fraction] 98 % Dr. Chente Conn MD Work Phone: 7(118)016-262077 [place] [address] 2024 22:05-0500 Systolic blood pressure 155 mm[Hg] Dr. Chente Conn MD Work Phone: 4(167)100-796154 [place] [address] 2024 22:00-0500 Inhaled oxygen flow rate 4 L/min Dr. Chente Conn MD Work Phone: 4(217)787-380677 [place] [address] 2024 18:08-0500 Inhaled oxygen concentration 4 % Dr. Chente Conn MD Work Phone: 5(332)220-824677 [place] [address] 2024 16:08-0500 Body height 152.[address] Chente Conn MD Work Phone: 5(303)878-130477 [place] [address] 2024 16:08-0500 Body mass index (BMI) [Ratio] 36.2 kg/m2 Dr. Chente Conn MD Work Phone: 8(041)402-337977 [place] [address] 2024 16:08-0500 Body weight 84.[address] Chente Conn MD Work Phone: 6(892)462-008177 [place] [address] 04-13-2023 16:06-0500 Body temperature 98.6 [degF] Dr. Chente Conn Work Phone: 2(913)110-041854 [place] [address] 04-13-2023 16:06-0500 Diastolic blood pressure 78 mm[Hg] Dr. Chente Conn Work Phone: [facility] 04-13-2023 16:06-0500 Heart rate 91 /min Dr. Chente Conn Work Phone: [facility] 04-13-2023 16:06-0500 Respiratory rate 17 /min Dr. Chente Conn Work Phone: 1(272)585-164554 [place] [address] 04-13-2023 16:06-0500 SaO2% (BldA) [Mass fraction] 96 % Dr. Chente Conn Work Phone: 2(218)073-338354 [place] [address] 04-13-2023 16:06-0500 Systolic blood pressure 101 mm[Hg] Dr. Chente Conn Work Phone: 1(621)916-269754 [place] [address] 04-13-2023 12:40-0500 Inhaled oxygen flow rate 3.5 L/min Dr. Chente Conn Work Phone: 8(428)087-560054 [place] [address] 04-13-2023 12:11-0500 Body height 152.[address] Chente Conn Work Phone: 4(351)731-584554 [place] [address] 04-13-2023 12:11-0500 Body mass index (BMI) [Ratio] 34.2 kg/m2 Dr. Chente Conn Work Phone: 9(118)541-554054 [place] [address] 04-13-2023 12:11-0500 Body weight 79.[address] Chente Conn Work Phone: [facility] 03-25-2023 09:30-0500 Inhaled oxygen flow rate 5 L/min Dr. Chente Conn Work Phone: 7(107)208-611154 [place] [address] 03-25-2023 09:17-0500 Body temperature 97.3 [degF] Dr. Chente Conn Work Phone: [facility] 03-25-2023 09:17-0500 Diastolic blood pressure 78 mm[Hg] Dr. Chente Conn Work Phone: [facility] 03-25-2023 09:17-0500 Heart rate 57 /min Dr. Chente Conn Work Phone: [facility] 03-25-2023 09:17-0500 Respiratory rate 13 /min Dr. Chente Conn Work Phone: [facility] 03-25-2023 09:17-0500 SaO2% (BldA) [Mass fraction] 97 % Dr. Chente Conn Work Phone: [facility] 03-25-2023 09:17-0500 Systolic blood pressure 121 mm[Hg] Dr. Chente Conn Work Phone: [facility] 03-25-2023 03:46-0500 Body mass index (BMI) [Ratio] 34.3 kg/m2 Dr. Chente Conn Work Phone: [facility] 03-25-2023 03:46-0500 Body weight 79.[address] Chente Conn Work Phone: [facility] 03-24-2023 09:21-0500 Body height 152.[address] Chente Conn Work Phone: [facility] 03-23-2023 16:45-0500 Body temperature 97.6 [degF] Dr. Chente Conn Work Phone: [facility] 03-23-2023 16:45-0500 Diastolic blood pressure 81 mm[Hg] Dr. Chente Conn Work Phone: [facility] 03-23-2023 16:45-0500 Heart rate 112 /min Dr. Chente Conn Work Phone: [facility] 03-23-2023 16:45-0500 Respiratory rate 20 /min Dr. Chente Conn Work Phone: [facility] 03-23-2023 16:45-0500 Systolic blood pressure 124 mm[Hg] Dr. Chente Conn Work Phone: [facility] 03-23-2023 15:25-0500 SaO2% (BldA) [Mass fraction] 95 % Dr. Chente Conn Work Phone: [facility] 03-23-2023 12:12-0500 Body height 152.[address] Chente Conn Work Phone: [facility] 03-23-2023 12:12-0500 Body mass index (BMI) [Ratio] 34.8 kg/m2 Dr. Chente Conn Work Phone: [facility] 03-23-2023 12:12-0500 Body weight 80.[address] Chente Conn Work Phone: 4(907)890-239854 [place] [address] 03-02-2023 09:13-0500 Body height 152.[address] Chente Conn Work Phone: 4(452)811-419198 [address] 03-02-2023 09:13-0500 Body mass index (BMI) [Ratio] 29.2 kg/m2 Dr. Chente Conn Work Phone: 2(275)143-636654 [place] [address] 03-02-2023 09:13-0500 Body temperature 97.3 [degF] Dr. Chente Conn Work Phone: 4(460)239-907754 [place] [address] 03-02-2023 09:13-0500 Body weight 68.[address] Chente Conn Work Phone: 6(484)165-320654 [place] [address] 03-02-2023 09:13-0500 Diastolic blood pressure 74 mm[Hg] Dr. Chente Conn Work Phone: [facility] 03-02-2023 09:13-0500 Heart rate 77 /min Dr. Chente Conn Work Phone: 9(385)386-128754 [place] [address] 03-02-2023 09:13-0500 Inhaled oxygen flow rate 2 L/min Dr. Chente Conn Work Phone: [facility] 03-02-2023 09:13-0500 Respiratory rate 20 /min Dr. Chente Conn Work Phone: [facility] 03-02-2023 09:13-0500 SaO2% (BldA) [Mass fraction] 97 % Dr. Chente Conn Work Phone: [facility] 03-02-2023 09:13-0500 Systolic blood pressure 104 mm[Hg] Dr. Chente Conn Work Phone: [facility] 01-16-2023 23:36-0500 Diastolic blood pressure 78 mm[Hg] Dr. Chente Conn Work Phone: [facility] 01-16-2023 23:36-0500 Heart rate 91 /min Dr. Chente Conn Work Phone: [facility] 01-16-2023 23:36-0500 Respiratory rate 16 /min Dr. Chente Conn Work Phone: [facility] 01-16-2023 23:36-0500 SaO2% (BldA) [Mass fraction] 98 % Dr. Chente Conn Work Phone: [facility] 01-16-2023 23:36-0500 Systolic blood pressure 127 mm[Hg] Dr. Chente Conn Work Phone: [facility] 01-16-2023 21:05-0500 Inhaled oxygen flow rate 4 L/min Dr. Chente Conn Work Phone: [facility] 01-16-2023 19:17-0500 Body height 152.[address] Chente Conn Work Phone: [facility] 01-16-2023 19:17-0500 Body mass index (BMI) [Ratio] 34.4 kg/m2 Dr. Chente Conn Work Phone: [facility] 01-16-2023 19:17-0500 Body temperature 97.3 [degF] Dr. Chente Conn Work Phone: [facility] 01-16-2023 19:17-0500 Body weight [address] Chente Conn Work Phone: [facility] 12-13-2022 14:22-0400 Inhaled oxygen concentration 30 % Dr. Chente Conn Work Phone: [facility] 12-13-2022 08:25-0400 Inhaled oxygen flow rate 4.5 L/min Dr. Chente Conn Work Phone: [facility] 12-13-2022 08:25-0400 SaO2% (BldA) [Mass fraction] 97 % Dr. Chente Conn Work Phone: [facility] 12-13-2022 07:56-0400 Body temperature 98.6 [degF] Dr. Chente Conn Work Phone: [facility] 12-13-2022 07:56-0400 Diastolic blood pressure 98 mm[Hg] Dr. Chente Conn Work Phone: [facility] 12-13-2022 07:56-0400 Heart rate 89 /min Dr. Chente Conn Work Phone: [facility] 12-13-2022 07:56-0400 Respiratory rate 18 /min Dr. Chente Conn Work Phone: [facility] 12-13-2022 07:56-0400 Systolic blood pressure 150 mm[Hg] Dr. Chente Conn Work Phone: [facility] 12-11-2022 13:56-0400 Body temperature 98.2 [degF] Dr. Chente Conn Work Phone: [facility] 12-11-2022 13:56-0400 Diastolic blood pressure 40 mm[Hg] Dr. Chente Conn Work Phone: [facility] 12-11-2022 13:56-0400 Heart rate 81 /min Dr. Chente Conn Work Phone: [facility] 12-11-2022 13:56-0400 Respiratory rate 18 /min Dr. Chente Conn Work Phone: [facility] 12-11-2022 13:56-0400 SaO2% (BldA) [Mass fraction] 100 % Dr. Chente Conn Work Phone: [facility] 12-11-2022 13:56-0400 Systolic blood pressure 147 mm[Hg] Dr. Chente Conn Work Phone: [facility] 12-11-2022 13:28-0400 Inhaled oxygen concentration 30 % Dr. Chente Conn Work Phone: [facility] 12-11-2022 12:44-0400 Inhaled oxygen flow rate 8 L/min Dr. Chente Conn Work Phone: [facility] 12-10-2022 16:06-0400 Body height 152.[address] Chente Conn Work Phone: [facility] 12-10-2022 16:06-0400 Body weight 77.[address] Chente Conn Work Phone: [facility] 12-10-2022 14:53-0400 Body mass index (BMI) [Ratio] 33.3 kg/m2 Dr. Chente Conn Work Phone: [facility] 12-10-2022 14:36-0400 Heart rate 112 /min Dr. Chente Conn Work Phone: [facility] 12-10-2022 14:36-0400 Respiratory rate 26 /min Dr. Chente Conn Work Phone: [facility] 12-10-2022 14:36-0400 SaO2% (BldA) [Mass fraction] 98 % Dr. Chente Conn Work Phone: [facility] 12-10-2022 12:40-0400 Body temperature 99.3 [degF] Dr. Chente Conn Work Phone: [facility] 12-10-2022 12:40-0400 Diastolic blood pressure 86 mm[Hg] Dr. Chente Conn Work Phone: [facility] 12-10-2022 12:40-0400 Systolic blood pressure 140 mm[Hg] Dr. Chente Conn Work Phone: [facility] 12-10-2022 09:37-0400 Body height 152.[address] Chente Conn Work Phone: [facility] 12-10-2022 09:37-0400 Body mass index (BMI) [Ratio] 40 kg/m2 Dr. Chente Conn Work Phone: [facility] 12-10-2022 09:37-0400 Body weight [address] Chente Conn Work Phone: [facility] 11-05-2022 14:00-0400 Inhaled oxygen concentration 28 % Dr. Chente Conn Work Phone: 1(550)049-774098 [address] 11-05-2022 13:30-0400 Body temperature 97 [degF] Dr. Chente Conn Work Phone: 4(462)676-548298 [address] 11-05-2022 13:30-0400 Diastolic blood pressure 93 mm[Hg] Dr. Chente Conn Work Phone: [facility] 11-05-2022 13:30-0400 Heart rate 90 /min Dr. Chente Conn Work Phone: 1(554)875-263654 [place] [address] 11-05-2022 13:30-0400 Inhaled oxygen flow rate 3 L/min Dr. Chente Conn Work Phone: [facility] 11-05-2022 13:30-0400 Respiratory rate 16 /min Dr. Chente Conn Work Phone: [facility] 11-05-2022 13:30-0400 SaO2% (BldA) [Mass fraction] 93 % Dr. Chente Conn Work Phone: [facility] 11-05-2022 13:30-0400 Systolic blood pressure 138 mm[Hg] Dr. Chente Conn Work Phone: [facility] 11-02-2022 10:44-0400 Body height 152.[address] Chente Conn Work Phone: [facility] 11-02-2022 10:44-0400 Body weight [address] Chente Conn Work Phone: [facility] 10-28-2022 05:38-0400 Body mass index (BMI) [Ratio] 32.8 kg/m2 Dr. Chente Conn Work Phone: [facility] 09-17-2022 13:19-0400 Body height 150.[address] Chente Conn Work Phone: [facility] 09-17-2022 13:19-0400 Body mass index (BMI) [Ratio] 32.2 kg/m2 Dr. Chente Conn Work Phone: [facility] 09-17-2022 13:19-0400 Body temperature 96.6 [degF] Dr. Chente Conn Work Phone: [facility] 09-17-2022 13:19-0400 Body weight 72.[address] Chente Conn Work Phone: [facility] 09-17-2022 13:19-0400 Diastolic blood pressure 72 mm[Hg] Dr. Chente Conn Work Phone: [facility] 09-17-2022 13:19-0400 Heart rate 78 /min Dr. Chente Conn Work Phone: [facility] 09-17-2022 13:19-0400 Inhaled oxygen flow rate 2 L/min Dr. Chente Conn Work Phone: [facility] 09-17-2022 13:19-0400 Respiratory rate 20 /min Dr. Chente Conn Work Phone: [facility] 09-17-2022 13:19-0400 SaO2% (BldA) [Mass fraction] 96 % Dr. Chente Conn Work Phone: [facility] 09-17-2022 13:19-0400 Systolic blood pressure 110 mm[Hg] Dr. Chente Conn Work Phone: [facility] 05-01-2023 20:35-0400 Body temperature 97.6 [degF] Dr. Chente Conn Work Phone: [facility] 06-22-2022 20:35-0400 Diastolic blood pressure 74 mm[Hg] Dr. Chente Conn Work Phone: [facility] 06-22-2022 20:35-0400 Heart rate 90 /min Dr. Chente Conn Work Phone: [facility] 06-22-2022 20:35-0400 Respiratory rate 18 /min Dr. Chente Conn Work Phone: [facility] 06-22-2022 20:35-0400 SaO2% (BldA) [Mass fraction] 94 % Dr. Chente Conn Work Phone: [facility] 06-22-2022 20:35-0400 Systolic blood pressure 102 mm[Hg] Dr. Chente Conn Work Phone: [facility] 06-22-2022 18:20-0400 Body height 150.[address] Chente Conn Work Phone: [facility] 06-22-2022 18:20-0400 Body mass index (BMI) [Ratio] 38.7 kg/m2 Dr. Chente Conn Work Phone: [facility] 06-22-2022 18:20-0400 Body weight 87.[address] Chente Conn Work Phone: [facility] 06-22-2022 18:20-0400 Inhaled oxygen flow rate 4 L/min Dr. Chente Conn Work Phone: [facility] 06-12-2022 12:17-0400 Body temperature 97.5 [degF] Dr. Chente Conn Work Phone: [facility] 06-12-2022 12:17-0400 Diastolic blood pressure 73 mm[Hg] Dr. Chente Conn Work Phone: [facility] 06-12-2022 12:17-0400 Heart rate 64 /min Dr. Chente Conn Work Phone: [facility] 06-12-2022 12:17-0400 Respiratory rate 18 /min Dr. Chente Conn Work Phone: [facility] 06-12-2022 12:17-0400 SaO2% (BldA) [Mass fraction] 96 % Dr. Chente Conn Work Phone: [facility] 06-12-2022 12:17-0400 Systolic blood pressure 109 mm[Hg] Dr. Chente Conn Work Phone: [facility] 06-12-2022 10:38-0400 Body height 149.[address] Chente Conn Work Phone: 6(007)026-788354 [place] [address] 06-12-2022 10:38-0400 Body mass index (BMI) [Ratio] 34.2 kg/m2 Dr. Chente Conn Work Phone: 3(792)745-111354 [place] [address] 06-12-2022 10:38-0400 Body weight [address] Chente Conn Work Phone: [facility] 06-12-2022 10:38-0400 Inhaled oxygen flow rate 5 L/min Dr. Chente Conn Work Phone: [facility] 04-01-2022 09:00-0500 Body temperature 99.2 [degF] Dr. Chente Conn Work Phone: [facility] 04-01-2022 09:00-0500 Diastolic blood pressure 90 mm[Hg] Dr. Chente Conn Work Phone: [facility] 04-01-2022 09:00-0500 Heart rate 88 /min Dr. Chente Conn Work Phone: [facility] 04-01-2022 09:00-0500 Inhaled oxygen flow rate 4 L/min Dr. Chente Conn Work Phone: [facility] 04-01-2022 09:00-0500 Respiratory rate 20 /min Dr. Chente Conn Work Phone: [facility] 04-01-2022 09:00-0500 SaO2% (BldA) [Mass fraction] 96 % Dr. Chente Conn Work Phone: [facility] 04-01-2022 09:00-0500 Systolic blood pressure 117 mm[Hg] Dr. Chente Conn Work Phone: [facility] 04-01-2022 04:58-0500 Body weight 76.[address] Chente Conn Work Phone: [facility] 03-31-2022 09:20-0500 Body height 151.[address] Chente Conn Work Phone: [facility] 03-24-2022 21:35-0500 Body height 151.[address] Chente Conn Work Phone: [facility] 03-24-2022 21:35-0500 Body mass index (BMI) [Ratio] 33.8 kg/m2 Dr. Chente Conn Work Phone: [facility] 03-24-2022 21:35-0500 Body weight 78.[address] Chente Conn Work Phone: [facility] 03-24-2022 20:54-0500 Body temperature 104 [degF] Dr. Chente Conn Work Phone: [facility] 03-24-2022 20:54-0500 Diastolic blood pressure 123 mm[Hg] Dr. Chente Conn Work Phone: [facility] 03-24-2022 20:54-0500 Heart rate 153 /min Dr. Chente Conn Work Phone: [facility] 03-24-2022 20:54-0500 Respiratory rate 44 /min Dr. Chente Conn Work Phone: [facility] 03-24-2022 20:54-0500 SaO2% (BldA) [Mass fraction] 93 % Dr. Chente Conn Work Phone: [facility] 03-24-2022 20:54-0500 Systolic blood pressure 145 mm[Hg] Dr. Chente Conn Work Phone: [facility] 03-24-2022 17:08-0500 Body height 152.[address] Chente Conn Work Phone: [facility] 03-24-2022 17:08-0500 Body mass index (BMI) [Ratio] 31.2 kg/m2 Dr. Chente Conn Work Phone: [facility] 03-24-2022 17:08-0500 Body weight 72.[address] Chente Conn Work Phone: [facility] 02-24-2022 22:38-0500 Body temperature 98.9 [degF] Dr. Chente Conn Work Phone: [facility] 02-24-2022 22:38-0500 Diastolic blood pressure 78 mm[Hg] Dr. Chente Conn Work Phone: [facility] 02-24-2022 22:38-0500 Heart rate 78 /min Dr. Chente Conn Work Phone: [facility] 02-24-2022 22:38-0500 Respiratory rate 13 /min Dr. Chente Conn Work Phone: [facility] 02-24-2022 22:38-0500 SaO2% (BldA) [Mass fraction] 95 % Dr. Chente Conn Work Phone: [facility] 02-24-2022 22:38-0500 Systolic blood pressure 127 mm[Hg] Dr. Chente Conn Work Phone: [facility] 02-24-2022 19:50-0500 Inhaled oxygen flow rate 4 L/min Dr. Chente Conn Work Phone: [facility] 02-24-2022 16:09-0500 Body height 152.[address] Chente Conn Work Phone: [facility] Work Phone: 02-24-2022 16:09-0500 Body mass index (BMI) [Ratio] 31.6 kg/m2 Dr. Chente Conn Work Phone: [facility] 02-24-2022 16:09-0500 Body weight 73.[address] Chente Conn Work Phone: [facility] 01-06-2022 13:12-0500 Body height 152.[address] Chente Conn Work Phone: [facility] Work Phone: 01-06-2022 13:12-0500 Body mass index (BMI) [Ratio] 31.2 kg/m2 Dr. Chente Conn Work Phone: [facility] 01-06-2022 13:12-0500 Body weight 72.[address] Chente Conn Work Phone: [facility] 01-06-2022 13:12-0500 Diastolic blood pressure 109 mm[Hg] Dr. Chente Conn Work Phone: [facility] 01-06-2022 13:12-0500 Heart rate 106 /min Dr. Chente Conn Work Phone: [facility] 01-06-2022 13:12-0500 Respiratory rate 18 /min Dr. Chente Conn Work Phone: [facility] 01-06-2022 13:12-0500 SaO2% (BldA) [Mass fraction] 94 % Dr. Chente Conn Work Phone: [facility] 01-06-2022 13:12-0500 Systolic blood pressure 144 mm[Hg] Dr. Chente Conn Work Phone: [facility] 12-19-2021 13:22-0400 Body height 152.[address] Chente Conn Work Phone: [facility] Work Phone: 12-19-2021 13:22-0400 Body mass index (BMI) [Ratio] 31.2 kg/m2 Dr. Chente Conn Work Phone: [facility] 12-19-2021 13:22-0400 Body temperature 95.7 [degF] Dr. Chente Conn Work Phone: [facility] 12-19-2021 13:22-0400 Body weight 72.[address] Chente Conn Work Phone: [facility] 12-19-2021 13:22-0400 Diastolic blood pressure 76 mm[Hg] Dr. Chente Conn Work Phone: 1(993)219-838554 [place] [address] 12-19-2021 13:22-0400 Heart rate 66 /min Dr. Chente Conn Work Phone: [facility] 12-19-2021 13:22-0400 Inhaled oxygen flow rate 2 L/min Dr. Chente Conn Work Phone: [facility] 12-19-2021 13:22-0400 Respiratory rate 18 /min Dr. Chente Conn Work Phone: [facility] 12-19-2021 13:22-0400 SaO2% (BldA) [Mass fraction] 94 % Dr. Chente oCnn Work Phone: [facility] 12-19-2021 13:22-0400 Systolic blood pressure 110 mm[Hg] Dr. Chente Conn Work Phone: [facility] 12-05-2021 15:00-0400 Body temperature 98.2 [degF] Dr. Chente Conn Work Phone: [facility] 12-05-2021 15:00-0400 Diastolic blood pressure 95 mm[Hg] Dr. Chente Conn Work Phone: [facility] 12-05-2021 15:00-0400 Heart rate 86 /min Dr. Chente Conn Work Phone: [facility] 12-05-2021 15:00-0400 Inhaled oxygen flow rate 4 L/min Dr. Chente Conn Work Phone: [facility] 12-05-2021 15:00-0400 Respiratory rate 17 /min Dr. Chente Conn Work Phone: [facility] 12-05-2021 15:00-0400 SaO2% (BldA) [Mass fraction] 95 % Dr. Chente Conn Work Phone: [facility] 12-05-2021 15:00-0400 Systolic blood pressure 118 mm[Hg] Dr. Chente Conn Work Phone: [facility] 12-04-2021 11:44-0400 Body height 152.[address] Chente Conn Work Phone: [facility] Work Phone: 12-04-2021 11:44-0400 Body weight 74.[address] Chente Conn Work Phone: [facility] 11-30-2021 15:07-0400 Body mass index (BMI) [Ratio] 32.2 kg/m2 Dr. Chente Conn Work Phone: [facility] 11-30-2021 14:32-0400 Body temperature 97.8 [degF] Dr. Chente Conn Work Phone: [facility] Work Phone: 11-30-2021 14:32-0400 Diastolic blood pressure 69 mm[Hg] Dr. Chente Conn Work Phone: [facility] Work Phone: 11-30-2021 14:32-0400 Heart rate 76 /min Dr. Chente Conn Work Phone: [facility] Work Phone: 11-30-2021 14:32-0400 Respiratory rate 15 /min Dr. Chente Conn Work Phone: [facility] Work Phone: 11-30-2021 14:32-0400 SaO2% (BldA) [Mass fraction] 96 % Dr. Chente Conn Work Phone: [facility] Work Phone: 11-30-2021 14:32-0400 Systolic blood pressure 112 mm[Hg] Dr. Chente Conn Work Phone: [facility] Work Phone: 11-30-2021 12:19-0400 Inhaled oxygen flow rate 4 L/min Dr. Chente Conn Work Phone: [facility] Work Phone: 11-30-2021 11:05-0400 Body height 121.[address] Chente Conn Work Phone: [facility] Work Phone: 11-30-2021 11:05-0400 Body mass index (BMI) [Ratio] 53.1 kg/m2 Dr. Chente Conn Work Phone: [facility] Work Phone: 11-30-2021 11:05-0400 Body weight [address] Chente Conn Work Phone: [facility] Work Phone: 08-19-2021 14:26-0400 Body height 152.[address] Chente Conn Work Phone: [facility] Work Phone: 08-19-2021 14:17-0400 Body mass index (BMI) [Ratio] 30.8 kg/m2 Dr. Chente Conn Work Phone: [facility] Work Phone: 08-19-2021 14:17-0400 Body temperature 97 [degF] Dr. Chente Conn Work Phone: [facility] Work Phone: 08-19-2021 14:17-0400 Body weight 71.[address] Chente Conn Work Phone: [facility] Work Phone: 08-19-2021 14:17-0400 Diastolic blood pressure 68 mm[Hg] Dr. Chente Conn Work Phone: [facility] Work Phone: 08-19-2021 14:17-0400 Heart rate 57 /min Dr. Chente Conn Work Phone: [facility] Work Phone: 08-19-2021 14:17-0400 Respiratory rate 17 /min Dr. Chente Conn Work Phone: [facility] Work Phone: 08-19-2021 14:17-0400 SaO2% (BldA) [Mass fraction] 97 % Dr. Chente Conn Work Phone: [facility] Work Phone: 08-19-2021 14:17-0400 Systolic blood pressure 110 mm[Hg] Dr. Chente Conn Work Phone: [facility] Work Phone: 07-16-2021 09:03-0400 Body height 152.[address] Chente Conn Work Phone: [facility] Work Phone: 07-16-2021 09:03-0400 Body mass index (BMI) [Ratio] 30.7 kg/m2 Dr. Chente Conn Work Phone: [facility] Work Phone: 07-16-2021 09:03-0400 Body weight 71.[address] Chente Conn Work Phone: [facility] Work Phone: 07-16-2021 09:03-0400 Diastolic blood pressure 71 mm[Hg] Dr. Chente Conn Work Phone: [facility] Work Phone: 07-16-2021 09:03-0400 Heart rate 68 /min Dr. Chente Conn Work Phone: [facility] Work Phone: 07-16-2021 09:03-0400 Respiratory rate 18 /min Dr. Chente Conn Work Phone: [facility] Work Phone: 07-16-2021 09:03-0400 SaO2% (BldA) [Mass fraction] 99 % Dr. Chente Conn Work Phone: [facility] Work Phone: 07-16-2021 09:03-0400 Systolic blood pressure 102 mm[Hg] Dr. Chente Conn Work Phone: [facility] Work Phone: 05-19-2021 21:15-0400 Diastolic blood pressure 72 mm[Hg] Dr. Chente Conn Work Phone: [facility] Work Phone: 05-19-2021 21:15-0400 Heart rate 79 /min Dr. Chente Conn Work Phone: [facility] Work Phone: 05-19-2021 21:15-0400 Respiratory rate 15 /min Dr. Chente Conn Work Phone: [facility] Work Phone: 05-19-2021 21:15-0400 SaO2% (BldA) [Mass fraction] 98 % Dr. Chente Conn Work Phone: [facility] Work Phone: 05-19-2021 21:15-0400 Systolic blood pressure 140 mm[Hg] Dr. Chente Conn Work Phone: [facility] Work Phone: 05-19-2021 18:07-0400 Body height 152.[address] Chente Conn Work Phone: [facility] Work Phone: 05-19-2021 18:07-0400 Body mass index (BMI) [Ratio] 31.8 kg/m2 Dr. Chente Conn Work Phone: [facility] Work Phone: 05-19-2021 18:07-0400 Body temperature 97.6 [degF] Dr. Chente Conn Work Phone: [facility] Work Phone: 05-19-2021 18:07-0400 Body weight [address] Chente Conn Work Phone: [facility] Work Phone: 04-15-2021 13:10-0500 Body temperature 97.2 [degF] Dr. Chente Conn Work Phone: [facility] Work Phone: 04-15-2021 13:10-0500 Body weight 72.[address] Chente Conn Work Phone: [facility] Work Phone: 04-15-2021 13:10-0500 Heart rate 85 /min Dr. Chente Conn Work Phone: [facility] Work Phone: 04-15-2021 13:10-0500 Respiratory rate 16 /min Dr. Chente Conn Work Phone: [facility] Work Phone: 04-15-2021 13:10-0500 SaO2% (BldA) [Mass fraction] 95 % Dr. Chente Conn Work Phone: [facility] Work Phone: 04-15-2021 12:10-0500 Body temperature 97.2 [degF] Dr. Chente Conn Work Phone: [facility] Work Phone: 04-15-2021 12:10-0500 Body weight 72.[address] Chente Conn Work Phone: [facility] Work Phone: 04-15-2021 12:10-0500 Heart rate 85 /min Dr. Chente Conn Work Phone: [facility] Work Phone: 04-15-2021 12:10-0500 Respiratory rate 16 /min Dr. Chente Conn Work Phone: [facility] Work Phone: 04-15-2021 12:10-0500 SaO2% (BldA) [Mass fraction] 95 % Dr. Chente Conn Work Phone: [facility] Work Phone: 03-24-2021 23:17-0500 Body mass index (BMI) [Ratio] 0 kg/m2 Dr. Chente Conn Work Phone: [facility] Work Phone: 02-21-2021 23:10-0500 Body mass index (BMI) [Ratio] 0 kg/m2 Dr. Chente Conn Work Phone: [facility] Work Phone: 01-21-2021 23:06-0500 Body mass index (BMI) [Ratio] 0 kg/m2 Dr. Chente Conn Work Phone: [facility] Work Phone: 08-28-2016 09:39-0400 BMI (Body Mass Index) 30.27 kg/m2 [facility] Work Phone: 08-28-2016 09:39-0400 BP Diastolic 62 mm[Hg] [facility] Work Phone: 08-28-2016 09:39-0400 BP Systolic 106 mm[Hg] [facility] Work Phone: 08-28-2016 09:39-0400 Height 152.4 cm [facility] Work Phone: 08-28-2016 09:39-0400 Pulse (Heart Rate) 78 /min [facility] Work Phone: 08-28-2016 09:39-0400 Respiratory Rate 12 /min Harumi [facility] Work Phone: 08-28-2016 09:39-0400 Weight 70.31 kg [facility] Work Phone: 06-15-2016 11:14-0400 BP Diastolic 87 mm[Hg] Chente Lara [employer] [facility] Work Phone: 06-15-2016 11:14-0400 BP Systolic 111 mm[Hg] Chente Lara [employer] [facility] Work Phone: 06-15-2016 11:14-0400 Pulse (Heart Rate) 60 /min Chente Lara [employer] [facility] Work Phone: 06-15-2016 11:14-0400 Respiratory Rate 16 /min Chente Lara [employer] [facility] Work Phone: 01-08-2016 09:55-0500 Body Temperature 97.2 [degF] Chente Marco [employer] [facility] Work Phone: Encounters Encounter Date Encounter Type Care Provider Facility Start: 09-03-2024 ambulatory Chente Conn Facilit y:[facility] Start: 09-01-2024 ambulatory Chente Conn Facilit y:[facility] Start: 08-22-2024 End: 08-22-[address] Chente Conn MD Work Phone: -Laboratory Specimen Start: 08-22-2024 End: 08-22-[address] Chente Conn MD -Laboratory Specimen Work Phone: Start: 08-22-2024 End: 08-22-2024 ambulatory Chente Conn Facility:[facility] Start: 07-26-2024 End: 07-26-[address] MD [facility] Work Phone: Start: 07-26-2024 End: 07-26-[address] Roddy Quinones MD -Radiology [facility] Work Phone: Start: 07-25-2024 End: 08-21-[address] Chente Conn MD -Laboratory Specimen Work Phone: Start: 07-25-[address] Chente Conn MD -Laboratory Specimen Work Phone: Start: 07-25-2024 End: 08-21-[address] Chente Conn MD Work Phone: -Laboratory Specimen Start: 07-18-2024 End: 07-18-[address] Chente Conn MD Work Phone: [facility] Work Phone: Start: 07-18-2024 End: 07-18-[address] Matteo Posadas MD -Laboratory Specimen Work Phone: Start: 07-18-2024 End: 07-18-2024 ambulatory Chente Conn Facility:[facility] Start: 06-26-2024 End: 06-26-[address] Chente Conn MD Work Phone: [facility] Work Phone: Start: 06-26-2024 End: 06-26-[address] Chente Conn MD -Laboratory, Specimen Work Phone: Start: 06-26-2024 End: 06-26-2024 ambulatory Chente Conn Facility:[facility] Start: 06-15-2024 End: 06-15-[address] Matteo Posadas MD -[facility] Work Phone: Start: 06-15-2024 End: 06-15-2024 ambulatory Chente Conn Facility:[facility] Start: 05-29-2024 End: 06-21-[address] Chente Conn MD -Laboratory, Specimen Work Phone: Start: 05-29-2024 End: 06-21-2024 ambulatory Chente Conn Facility:[facility] Start: 05-09-2024 End: 05-09-[address] Chente Conn MD Work Phone: [facility] Work Phone: Start: 05-09-2024 End: 05-09-2024 Patient encounter procedure Valarie Kee NP-C -Laboratory, Specimen Work Phone: Start: 05-09-2024 End: 05-09-2024 ambulatory Chente Conn Facility:[facility] Start: 05-01-2024 End: 05-22-[address] Chente Conn MD -Laboratory, Specimen Work Phone: Start: 05-01-[address] Chente Conn MD -Laboratory, Specimen Work Phone: Start: 05-01-2024 End: 05-22-[address] Chente Conn MD Work Phone: [facility] Work Phone: Start: 04-27-2024 ambulatory Chente Conn [facility] y:[facility] Start: 04-25-2024 End: 04-25-[address] Chente Conn MD -Outpatient Bone Densitometry Work Phone: Start: 04-25-2024 End: 04-25-2024 ambulatory Chente Conn Facility:[facility] Start: 04-04-2024 End: 04-04-2024 Patient encounter procedure [facility] Work Phone: Start: 04-04-2024 End: 04-04-2024 ambulatory Chente Conn Facility:[facility] Start: 04-03-2024 End: 04-21-[address] Chente Conn MD -Laboratory, Specimen Work Phone: Start: 04-03-2024 End: 04-21-2024 ambulatory Chente Conn Facility:[facility] Start: 03-16-2024 End: 03-16-[address] Roddy Quinones MD -Radiology, [facility] Work Phone: Start: 03-16-2024 End: 03-16-2024 ambulatory Chente Conn Facility:[facility] Start: 03-08-2024 End: 03-08-[address] Chente Conn MD -Laboratory, Specimen Work Phone: Start: 03-08-2024 End: 03-08-2024 ambulatory Chente Conn Facility:[facility] Start: 02-24-2024 End: 03-24-2024 ambulatory Chente Conn Facility:[facility] Start: 02-24-2024 End: 03-24-[address] Chente Conn MD -Laboratory, Specimen Work Phone: Start: 2024 ambulatory Chente Conn Facilit y:[facility] Start: 2024 Non-patient / Non-visit Dr. Torey Weber MD -[facility] Start: 2024 End: 2024 Emergency department patient visit Dr. Racquel Moss DO -Emergency Department Work Phone: Start: 01-27-2024 End: 02-22-[address] Chente Conn MD -Laboratory, Specimen Work Phone: Start: 01-27-2024 End: 02-22-2024 ambulatory Chente Conn Facility:[facility] Start: 01-14-2024 End: 01-14-2024 ambulatory Chente Conn Facility:[facility] Start: 01-04-2024 ambulatory Michael Posadas Facility:[facility] Start: 01-04-2024 End: 01-10-2024 Evaluation and management of inpatient Michael Posadas Facility:[facility] Start: 12-28-2023 End: 12-28-2023 ambulatory Chente Conn Facility:[facility] Start: 11-29-2023 End: 11-29-2023 ambulatory Chente Conn Facility:[facility] Start: 10-29-2023 End: 10-29-2023 ambulatory Chente Conn Facility:[facility] Start: 09-30-2023 End: 10-01-2023 ambulatory Chente Conn Facility:[facility] Start: 09-15-2023 End: 09-15-2023 ambulatory Stefan Bri Facility:[facility] Start: 09-10-2023 End: 09-10-2023 ambulatory Chente Conn Facility:[facility] Start: 09-06-2023 End: 09-06-2023 ambulatory Torey Huffman Facility:[facility] Start: 06-14-2023 End: 06-14-[address] Chente Conn Work Phone: [facility] Work Phone: Start: 06-14-2023 End: 06-14-[address] Chente Conn Work Phone: [facility]-Laboratory, Specimen Work Phone: Start: 05-17-2023 End: 05-17-[address] Chente Conn Work Phone: [facility] Work Phone: Start: 05-17-2023 End: 05-17-[address] [facility] Start: 04-19-2023 End: 04-19-[address] Chente Conn Work Phone: [facility] Work Phone: Start: 04-19-2023 End: 04-19-[address] [facility] Work [facility] Start: 04-13-2023 End: 04-13-2023 Emergency department patient visit Dr. Chente Conn Work Phone: [facility]-Emergency Department Work Phone: Start: 03-25-2023 Non-patient / Non-visit Dr. Chente Conn Work Phone: [facility] Work Phone: Start: 03-25-2023 Non-patient / Non-visit Dr. Chente Conn Work Phone: [facility] Start: 03-25-2023 Dr. Chente canales Work Phone: [facility] Start: 03-24-2023 Non-patient / Non-visit Dr. Chente Conn Work Phone: [facility] Work Phone: Start: 03-24-2023 Dr. Chente canales Work Phone: [facility] Work Phone: Start: 03-24-2023 Non-patient / Non-visit Dr. Chente Conn Work Phone: [facility] Start: 03-24-2023 Dr. Chente canales Work Phone: [facility] Start: 03-23-2023 Non-patient / Non-visit Dr. Chente Conn Work Phone: [facility] Work Phone: Start: 03-23-2023 End: 03-25-2023 Evaluation and management of inpatient Dr. Chnete Conn Work Phone: [facility]-Intensive Care Unit Work Phone: Start: 03-23-2023 End: 03-25-2023 Dr. Chen[facility] Work [facility] Start: 03-02-2023 End: 03-02-[address] Chente Conn Work Phone: [facility]-Pulmonary Medicine [facility] Work Phone: Start: 03-02-2023 End: 03-02-2023 Dr. Chente Conn Work Phone: [facility] Work Phone: Start: 03-01-2023 End: 03-01-[address] Chente Conn Work Phone: [facility] Work Phone: Start: 03-01-2023 End: 03-01-[address] [facility] Work Phone: Start: 03-01-2023 End: 03-01-2023 Dr. Chen[facility] Conn [facility] Work Phone: Start: 02-03-2023 End: 02-03-[address] Chente Conn Work Phone: [facility] Work Phone: Start: 02-03-2023 End: 02-03-[address] Chen[facility] Work [facility]: Start: 02-03-2023 End: 02-03-2023 Dr. Chen[facility] Work [facility]: Start: 01-16-2023 End: 01-16-2023 Emergency department patient visit Dr. Chente Conn Work Phone: [facility]-Emergency Department Work Phone: Start: 01-16-2023 End: 01-16-2023 Dr. Chente Conn Work Phone: [facility]-Emergency Department Work Phone: Start: 01-04-2023 End: 01-04-[address] Chente Conn Work Phone: [facility]-Laboratory, Specimen Work Phone: Start: 01-04-2023 End: 01-04-2023 Dr. Chente Conn Work Phone: [facility]-Laboratory, Specimen Work Phone: Start: 12-13-2022 Non-patient / Non-visit Dr. Chente Conn Work Phone: [facility] Work Phone: Start: 12-13-2022 Dr. Chente canales Work Phone: [facility] Work Phone: Start: 12-12-2022 Non-patient / Non-visit Dr. Chente Conn Work Phone: [facility] Start: 12-12-2022 Dr. Chente canales Work Phone: [facility] Start: 12-12-2022 Non-patient / Non-visit Dr. Chente Conn Work Phone: [facility] Work Phone: Start: 12-12-2022 Dr. Chente canales Work Phone: [facility] Work Phone: Start: 12-11-2022 Non-patient / Non-visit Dr. Chente Conn Work Phone: [facility] Work Phone: Start: 12-11-2022 Dr. Chente canales Work Phone: [facility] Work Phone: Start: 12-11-2022 Non-patient / Non-visit Dr. Chente Conn Work Phone: [facility] Start: 12-11-2022 Dr. Chente canales Work Phone: [facility] Start: 12-10-2022 End: 12-13-2022 Evaluation and management of inpatient Dr. Chente Conn [facility] Work [facility] Start: 12-10-2022 End: 12-13-2022 Dr. Chen[facility] Conn [facility] Work [facility] Start: 12-07-2022 End: 12-07-[address] Chente Conn Work Phone: [facility] Work Phone: Start: 12-07-2022 End: 12-07-[address] Chen[facility] Work Phone: Start: 12-07-2022 End: 12-07-2022 Dr. Chente Conn [facility] Work Phone: Start: 11-12-2022 End: 11-12-[address] Chente Conn [facility] Work Phone: Start: 11-05-2022 Non-patient / Non-visit Dr. Chente Conn Work Phone: [facility] Work Phone: Start: 11-04-2022 Non-patient / Non-visit Dr. Chente Conn Work Phone: [facility] Work Phone: Start: 11-03-2022 Non-patient / Non-visit Dr. Chente Conn Work Phone: [facility] Work Phone: Start: 11-02-2022 Non-patient / Non-visit Dr. Chente Conn Work Phone: [facility] Work Phone: Start: 11-01-2022 Non-patient / Non-visit Dr. Chente Conn Work Phone: [facility] Work Phone: Start: 10-31-2022 Non-patient / Non-visit Dr. Chente Conn Work Phone: [facility] Work Phone: Start: 10-30-2022 Non-patient / Non-visit Dr. Chente Conn Work Phone: [facility] Work Phone: Start: 10-29-2022 Non-patient / Non-visit Dr. Chente Conn Work Phone: [facility] Work Phone: Start: 10-28-2022 Non-patient / Non-visit Dr. Chente Conn Work Phone: [facility] Work Phone: Start: 10-27-2022 Non-patient / Non-visit Dr. Chente Conn Work Phone: [facility] Work Phone: Start: 10-27-2022 End: 11-05-2022 Evaluation and management of inpatient Dr. Chente Conn Work Phone: [facility]-Intensive Care Unit Work Phone: Start: 10-14-2022 End: 10-14-[address] Chente Conn Work Phone: [facility] Work Phone: Start: 10-14-2022 End: 10-14-[address] Chen[facility] Work [facility]: Start: 09-17-2022 End: 09-17-[address] Chente Conn Work Phone: [facility]-Pulmonary Medicine [facility] Work Phone: Start: 09-14-2022 End: 09-14-[address] Chente Conn Work Phone: [facility] Work Phone: Start: 09-14-2022 End: 09-14-[address] Chen[facility] Work Phone: Start: 08-17-2022 End: 08-17-[address] [facility] Work Phone: Start: 08-17-2022 End: 08-17-2022 [facility] Work [facility] Start: 07-22-2022 End: 07-22-2022 [facility] Work [facility]: Start: 06-30-2022 Telephone encounter [facility] Work Phone: Colorectal Surgery Comment on above: [facility] Start: 06-22-2022 End: 06-23-2022 Emergency department patient visit Dr. Chente Conn Work Phone: [facility] Work Phone: Start: 06-22-2022 End: 06-23-2022 Dr. Chente Conn Work Phone: [facility]-Emergency Department Start: 06-15-2022 End: 06-16-2022 ambulatory CHENTE Emil [place] Facility[facility] Start: 06-15-2022 End: 06-15-2022 Nursing evaluation of patient and report [facility] Work Phone: Colorectal Surgery Comment on above: Attention to colosto my (HCC) (Primary Dx) Start: 06-12-2022 End: 06-12-2022 Emergency department patient visit Dr. Chente Conn Work Phone: [facility]-Emergency Department Start: 06-12-2022 End: 06-12-2022 Dr. Chente Conn Work Phone: [facility]-Emergency Department Start: 06-01-2022 End: 06-21-2022 [facility] Start: 06-01-[address] Chente Conn [facility] Start: 06-01-2022 End: 06-21-2022 Dr. Chente Conn [facility] Start: 05-06-2022 End: 05-06-2022 ambulatory I MAURICIO LEAVITT Facility:[facility] Start: 05-06-2022 End: 05-06-2022 [facility] I Mauricio Leavitt MD Work Phone: Colorectal Surgery Comment on above: Functional disorder of stomach (Primary Dx) Start: 05-04-2022 End: 05-22-[address] Chente Conn Work Phone: [facility] Work Phone: Start: 05-04-2022 End: 05-22-[address] Chente Conn [facility] Start: 05-04-2022 End: 05-22-2022 Dr. Chente Conn [facility] Start: 04-14-2022 Telephone encounter I Mauricio rothman MD Work Phone: Colorectal Surgery Comment on above: Patient Update; Radha ent Question Patient Update Start: 04-01-2022 Non-patient / Non-visit Dr. Chente Conn Work Phone: [facility] Start: 04-01-2022 Dr. Chente canales Work Phone: [facility] Start: 03-31-2022 Non-patient / Non-visit Dr. Chente Conn Work Phone: [facility] Start: 03-31-2022 Dr. Chente canales Work Phone: [facility] Start: 03-31-2022 Non-patient / Non-visit Dr. Chente Conn Work Phone: [facility] Start: 03-31-2022 Dr. Chente canales Work Phone: [facility] Start: 03-30-2022 Non-patient / Non-visit Dr. Chente Conn Work Phone: [facility] Start: 03-30-2022 Dr. Chente canales Work Phone: [facility] Start: 03-30-2022 Non-patient / Non-visit Dr. Chente Conn Work Phone: [facility] Start: 03-30-2022 Dr. Chente canales Work Phone: [facility] Start: 03-29-2022 Non-patient / Non-visit Dr. Chente Conn Work Phone: [facility] Start: 03-29-2022 Dr. Chente canales Work Phone: [facility] Start: 03-29-2022 Non-patient / Non-visit Dr. Chente Conn Work Phone: [facility] Start: 03-29-2022 Dr. Chente canales Work Phone: [facility] Start: 03-29-2022 Non-patient / Non-visit Dr. Chente Conn Work Phone: [facility] Start: 03-29-2022 Dr. Chente canales Work Phone: [facility] Start: 03-28-2022 Non-patient / Non-visit Dr. Chente Conn Work Phone: [facility] Start: 03-28-2022 Dr. Chente canales Work Phone: [facility] Start: 03-27-2022 Non-patient / Non-visit Dr. Chente Conn Work Phone: [facility] Start: 03-27-2022 Dr. Chente canales Work Phone: [facility] Start: 03-26-2022 Non-patient / Non-visit Dr. Chente Conn Work Phone: [facility] Start: 03-26-2022 Dr. Chente canales Work Phone: [facility] Start: 03-25-2022 Non-patient / Non-visit Dr. Chente Conn Work Phone: [facility] Start: 03-25-2022 Dr. Chente canales Work Phone: [facility] Start: 03-25-2022 Non-patient / Non-visit Dr. Chente Conn Work Phone: [facility] Start: 03-25-2022 Dr. Chente canales Work Phone: [facility] Start: 03-24-2022 Non-patient / Non-visit Dr. Chente Conn Work Phone: [facility] Start: 03-24-2022 End: 04-01-2022 Evaluation and management of inpatient [facility]. Chente [facility] Start: 03-24-2022 End: 04-01-2022 Dr. Chente Conn Work Phone: [facility] Start: 03-23-2022 End: 03-24-[address] Chente Conn Work Phone: [facility] Work Phone: Start: 03-23-2022 End: 03-24-[address] Chen[facility] Conn [facility] Start: 03-23-[address] Chente Conn [facility] Start: 03-23-2022 End: 03-24-2022 Dr. Chente Conn [facility] Start: 02-24-2022 End: 02-24-2022 Emergency department patient visit Dr. Chente Conn Work Phone: [facility]-Emergency Department Start: 02-24-2022 End: 02-24-2022 Dr. Chente Conn Work Phone: [facility]Emer[facility] Start: 02-06-2022 End: 02-21-[address] Chente Conn Work Phone: [facility] Work Phone: Start: 02-06-2022 End: 02-21-[address] Chente Conn [facility] Start: 02-06-2022 End: 02-21-2022 Dr. Chente Conn [facility] Start: 01-06-2022 End: 01-06-[address] Chente Conn Work Phone: [facility] Start: 01-06-2022 End: 01-06-2022 Dr. Chente Conn Work Phone: [facility] Start: 01-05-2022 End: 01-21-[address] Chente Conn Work Phone: [facility] Work Phone: Start: 01-05-2022 End: 01-21-[address] Chente Conn Work Phone: [facility]-Laboratory, Specimen Start: 01-05-2022 End: 01-21-2022 Dr. Chente Conn Work Phone: [facility] Start: 12-19-2021 End: 12-19-[address] Chente Conn [facility] Start: 12-19-2021 End: 12-19-2021 Dr. Chente Conn Work Phone: [facility] Start: 12-08-2021 End: 12-22-[address] Chente Conn Work Phone: [facility] Work Phone: Start: 12-08-2021 End: 12-22-[address] Chente Conn Work Phone: [facility] Spec[facility] Start: 12-08-2021 End: 12-22-2021 Dr. Chente Conn Work Phone: [facility] Specimen Start: 12-05-2021 Non-patient / Non-visit Dr. Chente Conn Work Phone: [facility] Start: 12-05-2021 Dr. Chente canales Work Phone: [facility] Start: 12-04-2021 Non-patient / Non-visit Dr. Chente Conn Work Phone: [facility] Start: 12-04-2021 Dr. Chente canales Work Phone: [facility] Start: 12-03-2021 Non-patient / Non-visit Dr. Chente Conn Work Phone: [facility] Start: 12-03-2021 [facility] Start: 12-03-2021 Non-patient / Non-visit Dr. Chente Conn Work Phone: [facility] Start: 12-03-2021 Dr. Chente canales Work Phone: [facility] Start: 12-02-2021 Non-patient / Non-visit Dr. Chente Conn Work Phone: [facility] Start: 12-02-2021 Dr. Chente canales Work Phone: [facility] Start: 12-01-2021 Non-patient / Non-visit Dr. Chente Conn Work Phone: [facility] Start: 12-01-2021 Dr. Chente canales Work Phone: [facility] Start: 12-01-2021 Non-patient / Non-visit Dr. Chente Conn Work Phone: [facility] Start: 12-01-2021 Dr. Chente canales Work Phone: [facility] Start: 12-01-2021 End: 12-05-2021 Non-patient / Non-visit Dr. Chente Conn Work Phone: [facility] Start: 11-30-2021 End: 12-05-2021 Evaluation and management of inpatient Dr. Cehnte Conn [facility] Start: 11-30-2021 End: 12-05-2021 Dr. Chente Conn [facility] Start: 11-03-2021 End: 11-21-[address] Chente Conn [facility] Start: 09-11-2021 Non-patient / Non-visit Dr. Chente Conn Work Phone: [facility] Start: 09-11-2021 End: 09-11-[address] Chen[facility] Conn [facility] Start: 09-10-2021 End: 09-21-[address] Chente Conn [facility] Phone[facility] Start: 09-10-[address] Chente Conn [facility] Phone[facility] Start: 08-19-2021 End: 08-19-[address] Chente Conn [facility] Start: 08-12-2021 End: 08-12-[address] Chente Conn [facility] Phone[facility] Start: 08-08-2021 End: 08-08-[address] Chente Conn [facility] Start: 07-16-2021 End: 07-16-[address] Chente Conn Work Phone: [facility] Start: 07-11-2021 End: 07-22-[address] Chente Conn [facility] Start: 06-11-2021 End: 06-21-[address] Chente Conn [facility] Start: 05-30-2021 End: 05-30-[address] Chente Conn Work Phone: [facility], [facility] Start: 05-20-2021 End: 05-20-[address] Chente Conn Work Phone[facility] Start: 05-19-2021 End: 05-19-2021 Emergency department patient visit Dr. Chente Conn Work Phone: [facility] Start: 05-13-2021 End: 05-22-[address] Chente Conn [facility] Phone[facility] Start: 04-28-2021 End: 04-28-[address] Chente Conn [facility] Phone[facility] Start: 04-21-2021 End: 04-21-[address] Chente Conn [facility] Phone[facility] Start: 04-15-2021 End: 04-15-[address] Chente Conn Work Phone: [facility] Start: 03-25-2021 End: 04-21-[address] Chente Conn [facility] Start: 02-24-2021 End: 03-24-[address] Chente Conn [facility] Phone[facility] Start: 01-28-2021 End: 02-21-2021 Discharged [...] above: Detection Limit = 3Performed at: [address] [id number] Director: Berry Gonzalez PhD, Phone: [phone] Start: 06-26-2024 Total iron binding capacity measurement [...] growth factor [Moles/volume] in Serum or Plasma [facility] Start: 06-26-[address] [facility] Start: 06-26-2024 Testosterone measurement [facility] Start: 04-13-2023 Venous catheter care management [facility] Start: 04-13-2023 End: 04-13-2023 [facility] Start: 04-13-2023 [facility] Start: 03-25-[address] [facility] Start: 03-24-[address] [facility] Start: 03-24-2023 CBC W Auto Differential panel - Blood [facility] Start: 03-24-2023 [facility] Start: 03-23-2023 Following clinical pathway protocol [facility] Start: 03-23-2023 Assessment of risk of venous thromboembolism [facility] Start: 03-23-[address] [facility] Start: 03-23-2023 Consultation for treatment [facility] Start: 03-23-[address] [facility] Start: 03-23-2023 Insertion of catheter into peripheral vein [facility] Start: 03-23-2023 Measuring intake and output [facility] Start: 03-23-[address] [facility] Start: 03-23-2023 Patient referral to dietitian [facility] Start: 03-23-2023 Providing care according to standard [facility] Start: 03-23-2023 Provision of activity privileges [facility] Start: 03-23-[address] [facility] Start: 03-23-[address] [facility] Start: 03-23-2023 [facility] Start: 03-23-[address] [facility] Start: 03-23-[address] [facility] Start: 03-23-2023 Bacteria identified in Blood by Culture Blood Culture [facility] Start: 03-23-2023 Bacteria identified in Urine by Culture [facility] Start: 03-23-2023 [facility] Start: 03-23-2023 End: 03-23-[address] [facility] Start: 03-23-2023 End: 03-23-2023 [facility] Start: 01-16-2023 End: 01-16-[address] [facility] Start: 01-16-2023 End: 01-16-2023 [facility] Start: 01-16-2023 Bacteria identified in Blood by Culture Blood Culture [facility] Start: 01-16-2023 Bacteria identified in Urine by Culture Urine Culture [facility] Start: 12-16-[address] [facility] Start: 12-16-[address] [facility] Start: 12-15-[address] [facility] Start: 12-15-[address] [facility] Start: 12-14-[address] [facility] Start: 12-14-[address] [facility] Start: 12-13-[address] [facility] Start: 12-13-[address] [facility] Start: 12-13-[address] [facility] Start: 12-12-[address] [facility] Start: 12-12-[address] [facility] Start: 12-12-2022 [facility] Start: 12-11-[address] [facility] Start: 12-10-[address] [facility] Start: 12-10-2022 Assessment of risk of venous thromboembolism [facility] Start: 12-10-[address] [facility] Start: 12-10-2022 Insertion of catheter into peripheral vein [facility] Start: 12-10-[address] [facility] Start: 12-10-2022 Providing care according to standard [facility] Start: 12-10-[address] [facility] Start: 12-10-2022 [facility] Start: 12-10-2022 Following clinical pathway protocol [facility] Start: 12-10-[address] [facility] Start: 12-10-[address] [facility] Start: 12-10-2022 Hospital admission, emergency, from emergency room, medical nature [facility] Start: 12-10-2022 [facility] Start: 12-10-2022 Patient referral to dietitian [facility] Start: 11-05-[address] [facility] Start: 11-04-2022 [facility] Start: 10-29-2022 [facility] Start: 10-28-[address] [facility] Start: 10-27-2022 End: 10-28-2022 [facility] Start: 10-27-2022 Care planning and problem solving actions [facility] Start: 10-27-[address] [facility] Start: 10-27-2022 Elevation of head of bed [facility] Start: 10-27-[address] [facility] Start: 10-27-2022 Notification of physician [facility] Start: 10-27-[address] [facility] Start: 10-27-2022 Airway suction technique [facility] Start: 10-27-[address] [facility] Start: 10-27-2022 Assessment of risk of venous thromboembolism [facility] Start: 10-27-2022 Insertion of catheter into peripheral vein [facility] Start: 10-27-2022 Measuring intake and output [facility] Start: 10-27-[address] [facility] Start: 10-27-2022 Providing care according to standard [facility] Start: 10-27-2022 Vital signs measurements [facility] Start: 10-27-[address] [facility] Start: 10-27-2022 [facility] Start: 06-22-2022 End: 06-22-[address] [facility] Start: 06-22-2022 End: 06-22-2022 [facility] Start: 06-12-2022 [facility] Start: 04-01-2022 Venous catheter care management [facility] Start: 04-01-[address] [facility] Start: 03-30-2022 Referral to ear, nose and throat service [facility] Start: 03-29-2022 Referral to general surgeon [facility] Start: 03-28-2022 [facility] Start: 03-27-2022 Care planning and problem solving actions [facility] Start: 03-27-2022 Referral to occupational therapist [facility] Start: 03-26-[address] [facility] Start: 03-25-[address] [facility] Start: 03-25-2022 Airway suction technique [facility] Start: 03-25-[address] [facility] Start: 03-25-2022 End: 03-26-2022 [facility] Start: 03-25-2022 Care planning and problem solving actions [facility] Start: 03-25-2022 [facility] Start: 03-24-2022 [facility] Start: 03-24-2022 Following clinical pathway protocol [facility] Start: 03-24-2022 Assessment of risk of venous thromboembolism [facility] Start: 03-24-2022 Catheterization of vein [facility] Start: 03-24-[address] [facility] Start: 03-24-[address] [facility] Start: 03-24-2022 Insertion of catheter into peripheral vein [facility] Start: 03-24-2022 Measuring intake and output [facility] Start: 03-24-2022 Patient referral to [facility] Start: 03-24-2022 Providing care according to standard [facility] Start: 03-24-[address] [facility] Start: 03-24-2022 [facility] Start: 03-24-[address] [facility] Start: 03-24-2022 End: 03-24-[address] [facility] Start: 03-24-2022 Patient referral to [facility] Start: 02-22-2022 DEPRESSION ASSESSMENT DEPRESSION ASSESSMENT [facility] Start: 12-05-[address] [facility] Start: 12-04-2021 [facility] Start: 12-03-[address] [facility] Start: 12-03-[address] [facility] Start: 12-02-2021 Referral to general surgeon [facility] Start: 12-02-[address] [facility] Start: 12-01-2021 [facility] Start: 11-30-2021 Following clinical pathway protocol [facility] Start: 11-30-2021 Transfusion of blood product [facility] Start: 11-30-2021 Assessment of risk of venous thromboembolism [facility] Start: 11-30-[address] [facility] Start: 11-30-2021 Insertion of catheter into peripheral vein [facility] Start: 11-30-2021 Measuring intake and output [facility] Start: 11-30-[address] [facility] Start: 11-30-2021 Providing care according to standard [facility] Start: 11-30-2021 Referral to occupational therapist [facility] Start: 11-30-[address] [facility] Start: 11-30-2021 [facility] Start: 11-30-[address] [facility] Work Phone: Start: 11-30-[address] [facility] Start: 11-30-2021 CT angiography of chest with contrast CTA Chest W/WO Contrast [facility] Work Phone: Start: 11-30-2021 CTA Chest vessels WO and W contrast IV [facility] Work Phone: Start: 11-30-2021 End: 12-01-2021 [facility] Start: 10-23-2021 Influenza vaccination INFLUENZA (#1) [facility] Start: 10-15-2018 Hemoglobin A1c/Hemoglobin.total in Blood HBA1C [facility] Start: 08-27-2017 End: 08-27-2017 Appointment [facility] Work Phone: Start: 08-28-2016 End: 08-28-2016 Appointment Appointment [facility] Work Phone: Start: 08-28-2016 End: 08-28-2016 *BMP *BMP [facility] Work Phone: Start: 08-28-2016 End: 08-28-2016 BNP *Brain Natriuretic Peptide BNP [facility] Work Phone: Start: 08-28-2016 End: 08-28-2016 CAPTAIN ASSISTANT CAPTAIN ASSISTANT [facility] Work Phone: Start: 08-28-2016 End: 08-28-2016 Follow Up Appt 1 year Follow Up Appt 1 year [facility] Work Phone: Start: 05-27-2016 End: 05-28-2016 aPTT *PTT-Partial Thromboplastin Time [facility] Work Phone: Start: 05-27-2016 End: 05-28-2016 CBC W Auto Differential panel - Blood *CBC [facility] Work Phone: Start: 05-27-2016 End: 05-28-2016 Coagulation factor induced.INR assay in platelet poor plasma *PT/INR [facility] Work Phone: Start: 01-08-2016 End: 01-08-2016 Bacterica wound culture *Culture and Sensitivity, wound [facility] Work Phone: Start: 04-12-2012 Hepatitis B screening URINE ALBUMIN:CREATININE RATIO [facility] Start: 04-08-2012 Hepatitis B surface antibody level LDL CHOLESTEROL [facility] Start: 04-08-2012 PNEUMOCOCCAL (2 - PCV) PNEUMOCOCCAL (2 - PCV) [facility] ic Start: 2001 Urine microalbumin profile DTAP,TDAP,TD (1 - Tdap) [facility] Start: 02-01-2000 ANNUAL PCP TEAM CHRONIC DISEASE VISIT ANNUAL PCP TEAM CHRONIC DISEASE VISIT [facility] Start: 02-01-2000 HIV SCREENING HIV SCREENING [facility] Start: 02-01-1992 3 comp foot exam completed DIABETIC FOOT EXAM [facility] Start: 02-01-1992 Hepatitis C antibody, confirmatory test DILATED RETINAL EXAM [facility] Start: 1982 COVID-19 VACCINE (#1) COVID-19 VACCINE (#1) [facility] Start: 1982 HEPATITIS B (1 of 3 - 3-dose series) HEPATITIS B (1 of 3 - 3-dose series) [facility] 24 hour urine calciu m output measurement [facility] Alanine aminotransfe rase [Enzymatic activity/volume] in Serum or Plasma [facility] Alanine aminotransfe rase [Enzymatic activity/volume] in Serum or Plasma [facility] Albumin [Mass/volume ] in Serum or Plasma [facility] Albumin [Mass/volume ] in Serum or Plasma [facility] Alkaline phosphatase [Enzymatic activity/volume] in Serum or Plasma [facility] Alkaline phosphatase [Enzymatic activity/volume] in Serum or Plasma [facility] Anion gap measurement [facility] Anion gap measurement [facility] An[facility] gap measurement [place] [facility] Anion gap measurement [facility] An[facility] gap measurement [facility] Anion gap measurement [facility] Anion gap measurement [facility] Aspartate aminotrans ferase [Enzymatic activity/volume] in Serum or Plasma [facility] Aspartate aminotrans ferase [Enzymatic activity/volume] in Serum or Plasma [facility] Bacteria identified in Blood by Culture Blood Culture [facility] Bacteria identified in Sputum by Respiratory culture [facility] Work Phone: Bacteria identified in Sputum by Respiratory culture [facility] Bilirubin, total measurement [facility] Bilirubin, total measurement [facility] BUN/Creatinine ratio [facility] BUN/Creatinine ratio [facility] BUN/Creatinine ratio [facility] BUN/Creatinine ratio [facility] BUN/Creatinine ratio [facility] BUN/Creatinine ratio [facility] BUN/Creatinine ratio [facility] Calcium [Mass/volume ] in Serum or Plasma [facility] Calcium [Mass/volume ] in Serum or Plasma [facility] Calcium [Mass/volume ] in Serum or Plasma [facility] Calcium [Mass/volume ] in Serum or Plasma [facility] Calcium [Mass/volume ] in Serum or Plasma [facility] Calcium [Mass/volume ] in Serum or Plasma [facility] Calcium [Mass/volume ] in Serum or Plasma [facility] Carbon dioxide, tota l [Moles/volume] in Serum or Plasma [facility] Carbon dioxide, tota l [Moles/volume] in Serum or Plasma [facility] Carbon dioxide, tota l [Moles/volume] in Serum or Plasma [facility] Carbon dioxide, tota l [Moles/volume] in Serum or Plasma [facility] Carbon dioxide, tota l [Moles/volume] in Serum or Plasma [facility] Carbon dioxide, tota l [Moles/volume] in Serum or Plasma [facility] Carbon dioxide, tota l [Moles/volume] in Serum or Plasma [facility] Chloride [Moles/volu me] in Serum or Plasma [facility] Chloride [Moles/volu me] in Serum or Plasma [facility] Chloride [Moles/volu me] in Serum or Plasma [facility] Chloride [Moles/volu me] in Serum or Plasma [facility] Chloride [Moles/volu me] in Serum or Plasma [facility] Chloride [Moles/volu me] in Serum or Plasma [facility] Chloride [Moles/volu me] in Serum or Plasma [facility] Creatinine [Moles/vo lume] in Serum or Plasma [facility] Creatinine [Moles/vo lume] in Serum or Plasma [facility] Creatinine [Moles/vo lume] in Serum or Plasma [facility] Creatinine [Moles/vo lume] in Serum or Plasma [facility] Creatinine [Moles/vo lume] in Serum or Plasma [facility] Creatinine [Moles/vo lume] in Serum or Plasma [facility] Creatinine [Moles/vo lume] in Serum or Plasma [facility] Erythrocyte mean corpuscular volume determination [facility] Glucose [Mass/volume ] in Serum or Plasma [facility] Glucose [Mass/volume ] in Serum or Plasma [facility] Glucose [Mass/volume ] in Serum or Plasma [facility] Glucose [Mass/volume ] in Serum or Plasma [facility] Glucose [Mass/volume ] in Serum or Plasma [facility] Glucose [Mass/volume ] in Serum or Plasma [facility] Glucose [Mass/volume ] in Serum or Plasma [facility] Hematocrit [Volume Fraction] of Blood [facility] Hematocrit [Volume Fraction] of Blood [facility] Hematocrit [Volume Fraction] of Blood [facility] Hematocrit [Volume Fraction] of Blood [facility] Hematocrit [Volume Fraction] of Blood [facility] Hematocrit [Volume Fraction] of Blood [facility] Hematocrit [Volume Fraction] of Blood [facility] Hemoglobin [Mass/vol ume] in Blood [facility] Hemoglobin [Mass/vol ume] in Blood [facility] Hemoglobin [Mass/vol ume] in Blood [facility] Hemoglobin [Mass/vol ume] in Blood [facility] Hemoglobin [Mass/vol ume] in Blood [facility] Hemoglobin [Mass/vol ume] in Blood [facility] Hemoglobin [Mass/vol ume] in Blood [facility] Insulin-like growth factor [Moles/volume] in Serum or Plasma [facility] Lactic acid measurement [facility] Leukocytes [#/volume ] in Blood [facility] Leukocytes [#/volume ] in Blood [facility] Leukocytes [#/volume ] in Blood [facility] Leukocytes [#/volume ] in Blood [facility] Leukocytes [#/volume ] in Blood [facility] Leukocytes [#/volume ] in Blood [facility] Leukocytes [#/volume ] in Blood [facility] Mean corpuscular hem oglobin concentration determination [facility] Mean corpuscular hem oglobin concentration determination [facility] Mean corpuscular hem oglobin concentration determination [facility] Mean corpuscular hem oglobin concentration determination [facility] Mean corpuscular hem oglobin concentration determination [facility] Mean corpuscular hem oglobin concentration determination [facility] Mean corpuscular hem oglobin concentration determination [facility] Mean corpuscular hem oglobin determination St. [facility] Mean corpuscular hem oglobin determination [facility] Mean corpuscular hem oglobin determination [facility] Mean corpuscular hem oglobin determination [facility] Mean corpuscular hem oglobin determination [facility] Mean corpuscular hem oglobin determination [facility] Mean corpuscular hem oglobin determination [facility] Measurement of renal function [facility] Measurement of renal function [facility] Measurement of renal function [facility] Measurement of renal function [facility] Measurement of renal function [facility] Measurement of renal function [facility] Measurement of renal function [facility] Microscopic observat ion [Identifier] in Unspecified specimen by Gram stain Gram Stain [facility] Work Phone: Neutrophil count [facility] Neutrophil count [facility] Neutrophil percent differential count [facility] Neutrophil percent differential count [facility] Patient Education [facility] Work Phone: Patient referral [facility] Work Phone: Platelets [#/volume] in Blood [facility] Platelets [#/volume] in Blood [facility] Platelets [#/volume] in Blood [facility] Platelets [#/volume] in Blood [facility] Platelets [#/volume] in Blood [facility] Platelets [#/volume] in Blood [facility] Platelets [#/volume] in Blood [facility] Potassium [Moles/vol ume] in Serum or Plasma [facility] Potassium [Moles/vol ume] in Serum or Plasma [facility] Potassium [Moles/vol ume] in Serum or Plasma [facility] Potassium [Moles/vol ume] in Serum or Plasma [facility] Potassium [Moles/vol ume] in Serum or Plasma [facility] Potassium [Moles/vol ume] in Serum or Plasma [facility] Potassium [Moles/vol ume] in Serum or Plasma [facility] Prolactin measurement [facility] Red blood cell count [facility] Red blood cell count [facility] Red blood cell count [facility] Red blood cell count [facility] Red blood cell [facility] Red blood cell count [facility] Red blood cell count [facility] Red cell distributio n width determination [facility] Red cell distributio n width determination [facility] Red cell distributio n width determination [facility] Red cell distributio n width determination [facility] Red cell distributio n width determination [facility] Red cell distributio n width determination [facility] Red cell distributio n width determination [facility] Respiratory Culture Respiratory Culture [facility] Work Phone: Respiratory pathogen s DNA and RNA 12b panel - Unspecified specimen by YAYO with probe detection [facility] Serum testosterone measurement [facility] Sodium [Moles/volume ] in Serum or Plasma [facility] Sodium [Moles/volume ] in Serum or Plasma [facility] Sodium [Moles/volume ] in Serum or Plasma [facility] Sodium [Moles/volume ] in Serum or Plasma [facility] Sodium [Moles/volume ] in Serum or Plasma [facility] Sodium [Moles/volume ] in Serum or Plasma [facility] Sodium [Moles/volume ] in Serum or Plasma [facility] Testosterone Free [Mass/volume] in Serum or Plasma [facility] Testosterone measurement [facility] Total protein measurement [facility] Total protein measurement [facility] Urea nitrogen [Mass/ volume] in Serum or Plasma [facility] Urea nitrogen [Mass/ volume] in Serum or Plasma [facility] Urea nitrogen [Mass/ volume] in Serum or Plasma [facility] Urea nitrogen [Mass/ volume] in Serum or Plasma [facility] Urea nitrogen [Mass/ volume] in Serum or Plasma [facility] Urea nitrogen [Mass/ volume] in Serum or Plasma [facility] Urea nitrogen [Mass/ volume] in Serum or Plasma [facility] Work Phone: [facility] Immunizations Immunization Date Immunization Notes Care Provider [facility] 01-09-2021 influenza, injectabl e, quadrivalent, preservative free Dr. Chente Conn Work Phone: [facility] 01-09-2021 influenza, seasonal, injectable Dr. Chente Conn Work Phone: [facility] 04-03-2020 Covid (Moderna) Dr. Chente cooper Work Phone: [facility] 02-06-[address] Chente Conn Work Phone: [facility] 12-11-[address] Chente Conn Work Phone: [facility] 01-20-[address] Chente Conn Work Phone: [facility] 02-19-2017 influenza, injectabl e, quadrivalent, preservative free Dr. Chente Conn Work Phone: [facility] 02-19-2017 influenza, seasonal, injectable Dr. Chente Conn Work Phone: [facility] 12-23-2015 influenza, injectabl e, quadrivalent, preservative free Dr. Chente Conn Work Phone: [facility] 12-23-2015 influenza, seasonal, injectable Dr. Chente Conn Work Phone: [facility] 11-08-2014 influenza, injectabl e, quadrivalent, preservative free LELIA Leavitt MD Work Phone: [facility] 01-15-2014 influenza, injectabl e, quadrivalent, preservative free Dr. Chente Conn Work Phone: [facility] 01-15-2014 influenza, seasonal, injectable Dr. Chente Conn Work Phone: [facility] 12-14-2012 influenza virus vacc ine, unspecified formulation LELIA Leavitt MD Work Phone: [facility] 11-22-[address] Darwin Conn Work Phone: [facility] Work Phone: 11-22-2012 pneumococcal vaccine , unspecified formulation Dr. Chente Conn Work Phone: [facility] 04-08-2011 influenza virus vacc ine, unspecified formulation LELIA Leavitt MD Work Phone: [facility] 04-08-2011 pneumococcal polysaccharide vaccine, 23 valent LELIA Leavitt MD Work Phone: [facility] Payers Date Payer Category Payer Unknown [id number] 2023 Self-pay [id number] 2020 Medicare [id number] 2020 Medicare MEDICARE MEDICAR E A AND B [id number] 2020-Present [phone] [place] [address] Medicare [id number] 2018 Medicaid MEDICAID [facility] MEDICAID [id number] 2018-Present [phone] [address] [place] [address] Medicaid [id number] 2018 Unknown SAVANNAH MORSE PPO [id number] 2018-Present [phone] [address] [place] [address] PPO [id number] 2016 Medicaid [id number] 2016 Unknown [id number] Unknown [id number] 2.16.840.1.365104.3.579.2.462 Unknown [id number] 2.16.840.1.750849.3.579.2.462 Unknown [id number] 2.16.840.1.287500.3.579.2.462 Unknown [id number] 2.16.840.1.497906.3.579.2.462 Unknown [id number] 2.16.840.1.606641.3.579.2.462 Unknown [id number] 2.16.840.1.731086.3.579.2.462 Unknown [id number] 2.16.840.1.659088.3.579.2.462 Unknown [id number] 2.16.840.1.905732.3.579.2.462 Unknown [id number] 2.16.840.1.682787.3.579.2.462 Unknown [id number] 2.16.840.1.216274.3.579.2.462 Unknown [id number] 2.16.840.1.603597.3.579.2.462 Unknown [id number] 2.16.840.1.390935.3.579.2.462 Unknown [id number] 2.16.840.1.493822.3.579.2.462 Unknown [id number] 2.16.840.1.072305.3.579.2.462 Unknown [id number] 2.16.840.1.446476.3.579.2.462 Unknown [id number] 2.16.840.1.490863.3.579.2.462 Unknown [id number] 2.16.840.1.480694.3.579.2.462 Unknown [id number] 2.16.840.1.756838.3.579.2.462 Unknown [id number] 2.16.840.1.099653.3.579.2.462 Unknown [id number] 2.16.840.1.113451.3.579.2.462 Unknown [id number] 2.16840.1.353984.3.579.2.462 Unknown [id number] 2.16.840.1.180285.3.579.2.462 Unknown [id number] 2.16840.1.354981.3.579.2.462 Unknown [id number] 2.16.840.1.435984.3.579.2.462 Unknown [id number] 2.16.840.1.350909.3.579.2.462 Unknown [id number] 2.16.840.1.013777.3.579.2.462 Unknown [id number] 2.16.840.1.980638.3.579.2.462 Unknown [id number] 2.16.840.1.094623.3.579.2.462 Unknown [id number] 2.16.840.1.236712.3.579.2.462 Unknown [id number] 2.16.840.1.842547.3.579.2.462 Unknown [id number] 2.16.840.1.328378.3.579.2.462 Unknown [id number] 2.16.840.1.792221.3.579.2.462 Unknown [id number] 2.16.840.1.214279.3.579.2.462 Unknown [id number] 2.16.840.1.783691.3.579.2.462 Unknown [id number] 2.16.840.1.709187.3.579.2.462 Unknown [id number] 2.16.840.1.076400.3.579.2.462 Unknown [id number] 2.16.840.1.234903.3.579.2.462 Unknown [id number] 2.16.840.1.773095.3.579.2.462 Unknown [id number] 2.16.840.1.661143.3.579.2.462 Unknown [id number] 2.16840.1.047612.3.579.2.462 Unknown [id number] 2.16840.1.056502.3.579.2.462 Unknown [id number] 2.16840.1.313431.3.579.2.462 Unknown [id number] 2.16840.1.833460.3.579.2.462 Social History Date Type Detail Facility Start: 05-19-2021 End: 01-16-2023 Tobacco smoking status NHIS Unknown if ever smoked [facility] Start: 04-25-2020 None [facility] Start: 04-25-2020 With Family [facility] Start: 07-08-2019 Non-smoker [facility] Start: 1980 Sex Assigned At Male [facility] Start: 2024 Tobacco smoking stat us WIIS Never smoked tobacco [facility] Start: 12-27-2019 Alcohol intake Not Asked [facility] Start: 1980 Sex Assigned At Not on file [facility] Start: 05-17-2024 End: 05-23-2024 Sex Male (finding) [facility] Medical Equipment Procedure Code Equipment Code Equipment Origin al Text Equipment Identifier Dates Catheter Ascenda 4fr .5mm Silicone 114cm 86cm Intrathecal 2 Piece Connector - [id number] Start: 04-05-2018 Pump Int Thcl 40 ml Snchr 2 Drg - [id number] Start: 03-08-2012 Pump Synchromed Ii 87.5in Titanium Silicone 26in Intrathecal [place] - [id number] Start: 04-05-2018 Tube Shiley 10.8 mm 6.4mm 6 76mm Tracheostomy Cuff Low Pressure Fenestrate - [id number] Start: 04-20-2018 Goals Date Patient Goal Desired Activity /State Functional Status Date Assessment Result Facility 03-25-2023 Functional status Bedrest [facility] Work Phone: 03-25-2023 Functional status Fair [facility] Work Phone: 12-13-2022 Functional status Bedrest [facility] Work Phone: 12-11-2022 Functional status Bedrest [facility] Work Phone: 11-05-2022 Functional status Chair [facility] Work Phone: 04-01-2022 Functional status Bedrest [facility] Work Phone: 03-31-2022 Functional status None [facility] Work Phone: 12-05-2021 Functional status With Assist of 2 [facility] Work Phone: 12-04-2021 Functional status Bedrest [facility] Work Phone: 12-03-2021 Functional status None [facility] Work Phone: Mental Status Date Assessment Result Facility 03-25-2023 Cognitive function Passive [facility] Work Phone: 03-24-2023 Cognitive function Voice/Name [facility] Work Phone: 12-13-2022 Cognitive function Voice/Name [facility] Work Phone: 12-13-2022 Cognitive function Dependent [facility] Work Phone: 12-11-2022 Cognitive function Voice/Name [facility] Work Phone: 11-05-2022 Cognitive function Voice/Name [facility] Work Phone: 06-12-2022 Cognitive function Awake;Alert;Appropriat e [facility] Work Phone: 04-01-2022 Cognitive function Voice/Name [facility] Work Phone: 03-31-2022 Cognitive function Demonstrates ability to follow instructions/comprehend [facility] Work Phone: 12-05-2021 Cognitive function Voice/Name [facility] Work Phone: 12-03-2021 Cognitive function Remote Impaired [facility] Work Phone: Clinical Notes 07-15-2018 to 07-27-2024 Note Date & Type Note Facility 07-27-2024 Radiology Diagnostic study note [facility] Imaging Services [address] [place] [address] Knee 1 or 2 Views MR#: [id number] Acct: [id number] Name: KRISS MICHAEL Rep #: [id number] : 1980 M 44 From: Manuel Bernabe MD PCP: Dr. Chente Conn MD Status: RE G CLI Study:Knee 1 or 2 Views Date of Exam: Exam# [id number] Ordering Dr: Gabrielle Quinones MD PROCEDURE: KNEE [...] due to the nonstandard projections. Reading Location: [id number] CC: Dr. Chente Conn MD; Dr. Roddy Quinones MD ~ Bottle Sorter: Signed [facility] Work Phone: 06-15-2024 Evaluation note Diagnosis Onset Date Resolution Osteoporosis chronic June 15, 2024 1:47pm [facility] Work Phone: 1(873) 171-336802-11-2025 Evaluation note* Diagnosis Onset Date Resolution Status Admit Date Chronic respiratory failure chronic April 04, 2024 1:01pm [facility] Work Phone: 1(487) 294-174102-11-2025 Evaluation note* Diagnosis Onset Date Resolution Status Admit Date Chronic respiratory failure chronic April 04, 2024 1:01pm Osteoporosis chronic June 15, 2024 1:47pm [facility] Work Phone: 1(172) 303-852902-20-2024 Discharge summary Author Anthony Russell [facility] April 13, 2023 4:08pm Note Date/Time April 13, 2023 12:41pm [facility] Medical Records Department [address] [place] [address] Emergency Department Summary 04/13/23 MR#: [id number] Acct: [id number] Name: KRISS MICHAEL Rep #:[id number] : 1980 43 From: Anthony Russell MD [...] Yes Recent Illness/Hospital[facility]: [facility] Medical History Acute dyspnea Anemia in chronic [...] 44.2 L Lymph % (Auto) 43.5 H [place] % (Auto) 7.8 Eos % (Auto) 3.7 [...] your Primary Care Provider. Call [facility] ([phone]) or report to the closest Emergency Room. Call 911 if necessary. 04/13/23 2448 <Electronically signed by Anthony Russell MD> Cosigner Signature (if applicable): CC: Dr. Chente Conn MD ~ Signed [facility] Work Phone: 1(307) 312-999702-01-2024 Discharge summary Author Camacho [facility] March 25, 2023 10:43am Note Date/Time March 25, 2023 1 0:40am [facility] Medical Records Department [address] [place] [address] Instructions for Home/Discharge Instructions 03/25/23 1035 MR#: [id number] Acct: [id number] Name: KRISS MICHAEL Rep #:[id number] : 1980 43 From: Camacho Gonzalez DO [...] MD; Dr. Cari Cavazos MD ~ Signed [facility] Work Phone: 1(962) 579-585202-01-2024 Progress note Author Jacek Monsalve [facility] March 25, 2023 9:12am Note Date/Time March 25, 2023 7 :06am [facility] Medical Records Department [address] [place] [address] Progress Note - Teenage Babysitter 03/25/2304 MR#: [id number] Acct: [id number] Name: KRISS MICHAEL Rep #:[id number] : 1980 43 From: Jacek Monsalve MD [...] neurologic status Charges/Coding Visit Charges Inpatient E&M: 31512 Subs Hosp L2 03/25/23 0912 <Electronically signed by Jacek Monsalve MD> Cosigner Signature (if applicable): CC: ~ Signed [facility] Work Phone: 1(472) 375-861301-31-2024 Progress note Author Camacho Gonzalez [facility] March 24, 2023 6:18pm Note Date/Time March 24, 2023 6 :15pm [facility] Medical Records Department [address] [place] [address] Progress Note - Hospitalist 03/24/23 1809 MR#: [id number] Acct: [id number] Name: KRISS MICHAEL Rep #:[id number] : 1980 43 From: Camacho Gonzalez DO [...] % (Auto) 62.2, Lymph % (Auto) 25.6, Big [place] % (Auto) 8.9, Eos % (Auto) 2.9, [...] 0.30, AST 14 L, ALT 25, Alkaline Pizweivasde112 H, Total Protein 7.5, Albumin 3.1 L, [...] 35 minutes Charges/Coding Visit Charges Inpatient E&M: 94721 Subs Hosp L2 03/24/238 <Electronically signed by Camacho Gonzalez DO> Cosigner Signature (if applicable): CC: ~ Signed [facility] Work Phone: 1(755) 713-886901-31-2024 Consult note Author Jacek Monsalve [facility] March 24, 2023 2:48pm Note Date/Time March 24, 2023 8 :48am [facility] Medical Records Department [address] [place] [address] Consultation - Teenage Babysitter 03/24/23805 MR#: [id number] Acct: [id number] Name: KRISS MICHAEL Rep #:[id number] : 1980 43 From: Jacek Monsalve MD [...] from the outpatient office, who presents to [facility] on 03/23/2023 secondary to recurrent episodes of [...] and actively tracking people around the room. [facility] Medical History Acute dyspnea Anemia in chronic [...] (Auto) 70.6 H, Lymph % (Auto) 21.7, [place] % (Auto) 5.1, Eos % (Auto) 2.0, [...] % (Auto) 62.2, Lymph % (Auto) 25.6, [place] % (Auto) 8.9, Eos % (Auto) 2.9, [...] 0.30, AST 14 L, ALT 25, Alkaline [id number] H, Total Protein 7.5, Albumin 3.1 L, Globulin 4.4 H, Albumin/Globulin Ratio 0.7 L Micro: Microbiology 03/23/23 12:55 Mucosa - Nose Respiratory Panel (PCR) - Final Imaging Radiology Impression Chest X-Ray 03/23/23 13:22 IMPRESSION: Limited inspiratory effort due to patient''s condition. There has been essentially no change prior study. Electronically Signed: Matti Greer MD at 13:40 EST Reading Location ID and State: [facility] / [place] , Service support , Charges/Coding Visit Charges Inpatient E&M: 22570 Init Hosp L2 03/24/23 1448 <Electronically signed [...] Huggins MD; Dr. Cari Cavazos MD~ Signed [facility] Work Phone: 1(295) 520-255701-30-2024 Discharge summary Author Siddharth De La Rosa [facility] March 23, 2023 5:09pm Note Date/Time March 23, 2023 1 2:22pm [facility] Medical Records Department [address] [place] [address] Emergency Department Summary 03/23/23 MR#: [id number] Acct: [id number] Name: KRISS MICHAEL Rep #:[id number] : 1980 43 From: Siddharth De La [...] has not been around any sick persons. [facility] <REYNA Scott - Last Filed: 03/23/23 16:27> [facility] Medical History Acute dyspnea Anemia in chronic [...] does not use caffeine: No ROS <REYNA cSott - Last Filed: 03/23/23 16:27> ROS ED [...] Oxygen Delivery Method Mechanical Ventilator Mechanical Ventilator [facility] <Dominic Méndez GAS BLENDER-C - Last Filed: 03/23/23 16:27> [facility] Lab Data Labs: Laboratory Results - last 24 hr 03/23/23 03/23/23 12:35 13:23 WBC 13.0 H RBC 5.07 Hgb 13.1 Hct 42.2 MCV 83.2 MCH 25.8 L MCHC 31.0 L RDW Std Deviation 45.1 H RDW Coeff of Emliee 14.8 H Plt Count 229 MPV 10.1 Immature Gran % (Auto) 0.400 Neut % (Auto) 70.6 H Lymph % (Auto) 21.7 Big Stone % (Auto) 5.1 Eos % (Auto) 2.0 [...] Patient be excepted by hospitalist. <Dr. Siddharth eD La Rosa MD - Last Filed: 03/23/23 17:09> [facility] Lab Data Labs: Laboratory Results - last 24 hr 03/23/23 03/23/23 12:35 13:23 WBC 13.0 H RBC 5.07 Hgb 13.1 Hct 42.2 MCV 83.2 MCH 25.8 L MCHC 31.0 L RDW Std Deviation 45.1 H RDW Coeff of Emilee 14.8 H Plt Count 229 MPV 10.1 Immature Gran % (Auto) 0.400 Neut % (Auto) 70.6 H Lymph % (Auto) 21.7 Big Stone % (Auto) 5.1 Eos % (Auto) 2.0 [...] Including time spent:, Discussing w/Patient &/or Family/Manager Export, Discussing w/Consultants, Arranging Admission or Transfer and Performing Direct Patient Care at Bedside Discharge Plan Dx/Rx/DC Orders Clinical Impression: Acute hypoxemic respiratory failure, Aspiration pneumonia, Cerebral palsy, Acidosis, lactic Disposition Disposition: Acute Care Hospital [facility] Discharge Date/Time: 03/23/23 16:46 What to do if you have Problems For any increased pain, shortness of breath, bleeding, nausea or vomiting, chest pain, or any unexpected problems, contact your Primary Care Provider. Call [facility] ([phone]) or report to the closest Emergency Room. Call 911 if necessary. 03/23/23 1706 <Electronically signed by Siddharth De La Rosa MD> Cosigner Signature (if applicable): 03/23/23 1627 <Electronically signed by Dominic HEBERTC> CC: Dr. Chente Conn MD ~ Signed [facility] Work Phone: 1(117) 169-103101-30-2024 History and physical note Author Lucia Dillard [facility] March 23, 2023 4:44pm Note Date/Time March 23, 2023 4 :37pm [facility] Medical Records Department [address] [place] [address] H&P Exam - Hospitalist 03/23/23 1633 MR#: [id number] Acct: [id number] Name: KRISS MICHAEL Rep #:[id number] : 1980 43 From: Lucia Dillard MD PCP: Dr. Chente Conn MD Status:AD M IN Location: ICU ICU09-1 HPI - General General Date of Admission: 03/23/23 Date of Service: 03/23/23 Chief Complaint: Respiratory distress HPI Narrative RKISS MICHAEL, is a 43-year-old male with a history of cerebral palsy withspastic quadriplegia, chronic dysphagia with a PEG tube, chronic respiratory failure with 4 L O2 during the day and trach with home vent nightly, seizure disorder, and GERD who presented to [facility] 03/23/2023 due to concern for aspiration and [...] is presently not in any acute distress. [facility] Medical History Acute dyspnea Anemia in chronic [...] (Auto) 70.6 H, Lymph % (Auto) 21.7, [place] % (Auto) 5.1, Eos % (Auto) 2.0, [...] documentation, 56Minutes Charges/Coding Visit Charges Inpatient E&M: 70152 Init Hosp L2 03/23/23 1644 <Electronically signed by Lucia Dillard MD> Cosigner Signature (if applicable): CC: Dr. Chente Conn MD; Dr. Lucia Dillard MD~ Signed [facility] Work Phone: 1(348) 699-115611-25-2023 Discharge summary Author Dalton Lester [facility] January 16, 2023 10:58pm Note Date/Time January 16, 2023 7:42pm [facility] Medical Records Department [address] [place] [address] Emergency Department Summary 01/16/23 MR#: [id number] Acct: [id number] Name: KRISS MICHAEL Rep #:[id number] : 1980 42 From: Amena OAKES PCP: [...] surgeon did not want to operate again. [facility] <CHAMP Merlos - Last Filed: 01/16/23 20:59> [facility] Medical History (Updated 01/16/23 @ 20:59 by [...] obtain. Positive for fever, vomiting. EXAM <CHAMP eMrlos - Last Filed: 01/16/23 20:59> Physical Exam [...] <CHAMP Merlos - Last Filed: 01/16/23 20:59> [facility] Narrative Medical decision making narrative: History [...] 75.2 H Lymph % (Auto) 16.8 L Big Stone % (Auto) 6.5 Eos % (Auto) 1.1 [...] Clarity Clear Urine pH 6.0 Ur Specific Catlett 1.025 Urine Protein 30 H Urine Glucose [...] workup. This patient was seen with a PA/GAS BLENDER Individually assessed they patient including history and physical. I have reviewed everything on the chart that is availableand agree with the documentation provided by the PA/GAS BLENDER including discussion about the assessment, treatment plan, [...] 75.2 H Lymph % (Auto) 16.8 L [place] % (Auto) 6.5 Eos % (Auto) 1.1 [...] Clarity Clear Urine pH 6.0 Ur Specific Catlett 1.025 Urine Protein 30 H Urine Glucose [...] your Primary Care Provider. Call [facility] ([phone]) or report to the closest Emergency Room. Call 911 if necessary. 01/16/232058 <Electronically signed by Amena OAKES> Cosigner Signature (if applicable): 01/16/232257 <Electronically signed by Dalton Lester DO> CC: Dr. Chente Conn MD ~ Signed [facility] Work Phone: 1(262) 225-717810-22-2023 Discharge summary Author [facility] December 13, 2022 6:10pm Note Date/Time December 13, 2022 1 2:47pm [facility] Medical Records Department [address] [place] [address] Discharge Summary 12/13/22 1247 MR#: [id number] Acct: [id number] Name: KRISS MICHAEL Rep #:[id number] : 1980 42 From: Donte adam DO PCP: Dr. Chente Conn MD Status:AD M IN Location: [place] [id number]- [id number] Providers Date of Admission: 12/10/22 Date [...] history of seizure disorder who presented to [facility] ED on 12/10/2022 with several episodes of [...] PT HOME MED LIST: GABAPENTIN DOSING -IF OM'S HEART RATE IS LOW I DON'T ALWAYS [...] Self Care Charges/Coding Visit Charges Inpatient E&M: 69521 Disch Hosp >30min 12/13/221809 <Electronically signed by Donte Abebe DO> Cosigner Signature (if applicable): CC: Dr. Donte Abebe DO; Dr. Chente Conn MD~ Signed [facility] Work Phone: 1(288) 432-692810-22-2023 Discharge summary Author Donte Abebe [facility] December 13, 2022 12:47pm Note Date/Time December 13, 2022 1 2:43pm [facility] Medical Records Department [address] [place] [address] Instructions for Home/Discharge Instructions 12/13/22 1242 MR#: [id number] Acct: [id number] Name: KRISS MICHAEL Rep #:[id number] : 1980 42 From: Donte adam DO [...] CC: Dr. Chente Conn MD ~ Signed [facility] Work Phone: 1([phone]) 970-704510-22-2023 Progress note Author Stefan Gregory [facility] December 13, 2022 11:49am Note Date/Time December 13, 2022 1 1:48am [facility] Medical Records Department [address] [place] [address] Progress Note - GI 12/13/22 1147 MR#: [id number] Acct: [id number] Name: KRISS MICHAEL Rep #:[id number] : 1980 42 From: Stefan Gregory DO PCP: Dr. Chente Conn MD Status:AD M IN Location: [place] [address] Subjective Subjective No issues with his tube [...] current management. Charges/Coding Visit Charges Inpatient E&M: 77683 Subs Hosp L3 12/13/22 1149 <Electronically signed by Stefan Gregory DO> Cosigner Signature (if applicable): CC: ~ Signed [facility] Work Phone: 1(429) 610-868710-21-2023 Progress note Author Stefan Gregory [facility] December 12, 2022 5:05pm Note Date/Time December 12, 2022 5 :02pm [facility] Medical Records Department [address] [place] [address] Progress Note - GI 12/12/22 1702 MR#: [id number] Acct: [id number] Name: KRISS MICHAEL Rep #:[id number] : 1980 42 From: Stefan Gregory DO PCP: Dr. Chente Conn MD Status:AD M IN Location: [place] [address] Subjective Subjective Patient underwent an upper endoscopy [...] seems stable. Charges/Coding Visit Charges Inpatient E&M: 40187 Subs Hosp L3 12/12/22 1705 <Electronically signed by Stefan Gregory DO> Cosigner Signature (if applicable): CC: ~ Signed [facility] Work Phone: 1(650) 232-642510-21-2023 Progress note Author Donte Abebe [facility] December 12, 2022 2:28pm Note Date/Time December 12, 2022 2 :27pm [facility] Medical Records Department [address] [place] [address] Progress Note - Hospitalist 12/12/22 1423 MR#: [id number] Acct: [id number] Name: KRISS MICHAEL Rep #:[id number] : 1980 42 From: Donte adam DO PCP: Dr. Chente Conn MD Status:AD M IN [facility] Reason for Visit Reason for [...] history of seizure disorder who presented to [facility] ED on 12/10/2022 with several episodes of [...] 35 minutes. Charges/Coding Visit Charges Inpatient E&M: 74117 Subs Hosp L2 12/12/22 1428 <Electronically signed by Donte Abebe DO> Cosigner Signature (if applicable): CC: ~ Signed [facility] Work Phone: 1(675) 475-751110-20-2023 Progress note Author Donte [facility] December 11, 2022 5:31pm Note Date/Time December 11, 2022 5 :31pm [facility] Medical Records Department [address] [place] [address] Progress Note - Hospitalist 12/11/22 1723 MR#: [id number] Acct: [id number] Name: KRISS MICHAEL Rep #:[id number] : 1980 42 From: Donte adam DO PCP: Dr. Chente Conn MD Status:AD M IN Location: [place] [id number]- 1 Reason for Visit Reason for Visit: [...] history of seizure disorder who presented to [facility] ED on 12/10/2022 with several episodes of [...] 35 minutes. Charges/Coding Visit Charges Inpatient E&M: 43140 Subs Hosp L2 12/11/22 8268 <Electronically signed by Donte Abebe DO> Cosigner Signature (if applicable): CC: ~ Signed [facility] Work Phone: 1(276) 295-601510-20-2023 Procedure [facility] 12-11-2022 Procedure [facility]10[facility]-2023 History and physical note Author Donte [facility] December 10, 2022 5:27pm Note Date/Time December 10, 2022 1 2:21pm [facility] Medical Records Department [address] [place] [address] H&P Exam - Hospitalist 12/10/22 1217 MR#: [id number] Acct: [id number] Name: KRISS MICHAEL Rep #:[id number] : 1980 42 From: Donte adam DO PCP: Dr. Chente Conn MD Status:AD M IN Location: [facility] NUS972- 1 HPI - General General Date of Admission: 12/10/22 HPI Narrative KRISS MICHAEL, is a 42 M who presents [facility] Medical History (Updated 12/10/22 @ 15:05 by [...] (Auto) 72.2 H, Lymph % (Auto) 19.2, Big Stone % (Auto) 5.9, Eos % (Auto) 2.1, [...] history of seizure disorder who presented to [facility] ED on 12/10/2022 with several episodes of [...] 55 minutes. Charges/Coding Visit Charges Inpatient E&M: 74519 Init Hosp L2 12/10/22 1727 <Electronically signed by Donte Abebe DO> Cosigner Signature (if applicable): CC: Dr. Donte Abebe DO; Dr. Chente Conn MD~ Signed [facility] Work Phone: 1(142) 317-846510-19-2023 Discharge summary Author Miky Rahman [facility] December 10, 2022 4:28pm Note Date/Time December 10, 2022 1 0:15am [facility] Medical Records Department [address] [place] [address] Emergency Department Summary 12/10/22 MR#: [id number] Acct: [id number] Name: KRISS MICHAEL Rep #:[id number] : 1980 42 From: Miky Chiang PCP: Dr. Chente Conn MD Status:AD M IN Location: [place] [address] HPI HPI - GI History of Present [...] the summer with PCP. Specialists are at [facility] with surgery. However mother states has seen [...] gastroenterology, hospitalist This note was generated with [employer] dictation software. It may contain incorrectwords, spelling, [...] (Auto) 72.2 H Lymph % (Auto) 19.2 Big Stone % (Auto) 5.9 Eos % (Auto) 2.1 [...] palsy, Hematemesis Disposition Disposition: Acute Care Hospital [facility] Discharge Date/Time: 12/10/22 14:37 What to do if you have Problems For any increased pain, shortness of breath, bleeding, nausea or vomiting, chestpain, or any unexpected problems, contact your Primary Care Provider. Call [facility] ([phone]) or report to the closest Emergency Room. Call 911 if necessary. 12/10/22 7935 <Electronically signed by Miky Chiang> Cosigner Signature (if applicable): CC: Dr. Chente Conn MD ~ Signed [facility] Work Phone: 1([phone]) 299-170409-14-2023 Discharge summary Author Vanessa Roberts [facility] November 05, 2022 11:44am Note Date/Time November 05, 2022 11:38am [facility] Medical Records Department [address] [place] [address] Discharge Summary 11/05/22 1136 MR#: [id number] Acct: [id number] Name: KRISS MICHAEL Rep #:[id number] : 1980 42 From: Vanessa Roberts DO [...] father had surgery for esophageal cancer at [facility]. Overall he is remained incredibly stable and [...] Self Care Charges/Coding Visit Charges Inpatient E&M: 20339 Disch Hosp 11/05/22 1148 <Electronically signed by Vanessa Roberts DO> Cosigner Signature (if applicable): CC: Dr. Chente Conn MD; Dr. Vanessa Roberts DO~ Signed [facility] Work Phone: [phone]) 844-852609-13-2023 Progress note Author Vanessa Roberts [facility] November 04, 2022 2:07pm Note Date/Time November 04, 2022 2:07pm [facility] Medical Records Department [address] [facility] [place] [address] Progress Note - Hospitalist 11/04/22 1405 MR#: [id number] Acct: [id number] Name: KRISS MICHAEL Rep #:[id number] : 1980 42 From: Vanessa Roberts DO [...] home tomorrow. Charges/Coding Visit Charges Inpatient E&M: 93415 Subs Hosp L1 11/04/22 1402 <Electronically signed by Vanessa Roberts DO> Cosigner Signature (if applicable): CC: ~ Signed [facility] Work Phone: 1(145) 421-370609-12-2023 Progress note Author Vanessa Roberts [facility] November 03, 2022 1:40pm Note Date/Time November 03, 2022 1:40pm [facility] Medical Records Department [address] [place] [address] Progress Note - Hospitalist 11/03/22 1338 MR#: [id number] Acct: [id number] Name: KRISS MICHAEL Rep #:[id number] : 1980 42 From: Vanessa Roberts DO [...] from surgery Charges/Coding Visit Charges Inpatient E&M: 78021 Subs Hosp L1 11/03/22 1340 <Electronically signed by Vanessa Roberts DO> Cosigner Signature (if applicable): CC: ~ Signed [facility] Work Phone: 1(519) 404-176309-11-2023 Progress note Author Vanessa Roberts [facility] November 02, 2022 5:28pm Note Date/Time November 02, 2022 8:02am [facility] Medical Records Department [address] [place] [address] Progress Note - Hospitalist 11/02/22 0755 MR#: [id number] Acct: [id number] Name: KRISS MICHAEL Rep #:[id number] : 1980 42 From: Vanessa Roberts DO [...] is having surgeryfor esophageal cancer chair at [facility]. Overall he is remained incredibly stable and [...] -Full code Charges/Coding Visit Charges Inpatient E&M: 43990 Subs Hosp L1 11/02/22 1728 <Electronically signed by Vanessa Roberts DO> Cosigner Signature (if applicable): CC: ~ Signed [facility] Work Phone: [phone]) 154-331109-10-2023 Progress note Author Michael Posadas [facility] November 01, 2022 9:04am Note Date/Time November 01, 2022 7:28am [facility] Medical Records Department [address] [place] [address] Progress Note - Hospitalist 11/01/22726 MR#: [id number] Acct: [id number] Name: KRISS MICHAEL Rep #:[id number] : 1980 42 From: Michael Posadas MD [...] documentation, 35Minutes Charges/Coding Visit Charges Inpatient E&M: 63176 Subs Hosp L2 11/01/22 0904 <Electronically signed by Michael Posadas MD> Cosigner Signature (if applicable): CC: ~ Signed [facility] Work Phone: 1(843) 148-214709-09-2023 Progress note Author Michael Posadas [facility] October 31, 2022 10:50am Note Date/Time October 31, 2022 7:35am [facility] Medical Records Department [address] [place] [address] Progress Note - Hospitalist 10/31/22 0732 MR#: [id number] Acct: [id number] Name: KRISS MICHAEL Rep #:[id number] : 1980 42 From: Michael Posadas MD [...] documentation, 35Minutes Charges/Coding Visit Charges Inpatient E&M: 63190 Subs Hosp L2 10/31/22 1050 <Electronically signed by Michael Posadas MD> Cosigner Signature (if applicable): CC: ~ Signed [facility] Work Phone: [phone]) 224-536809-08-2023 Progress note Author [facility] October 30, 2022 10:37am Note Date/Time October 30, 2022 10:37am [facility] Medical Records Department [address] [facility] [place] [address] Progress Note 10/30/22 1030 MR#: [id number] Acct: [id number] Name: KRISS MICHAEL Rep #:[id number] : 1980 42 From: Cindy Alexandre MD [...] respite care. Charges/Coding Visit Charges Inpatient E&M: 44428 Subs Hosp L2 10/30/22 1037 <Electronically signed by Cindy Alexandre MD> Cindy Alexandre MD Cosigner Signature (if applicable): CC: ~ Signed [facility] Work Phone: [phone]) 370-216909-07-2023 Progress note Author Barry Young [facility] October 29, 2022 8:31am Note Date/Time October 29, 2022 8:31am [facility] Medical Records Department [address] [place] [address] Progress Note - Hospitalist 10/29/22827 MR#: [id number] Acct: [id number] Name: KRISS MICHAEL Rep #:[id number] : 1980 42 From: Barry stover MD [...] home instructions Charges/Coding Visit Charges Inpatient E&M: 70336 Subs Hosp L2 10/29/22 0831 <Electronically signed by Barry Young MD> Cosigner Signature (if applicable): CC: ~ Signed [facility] Work Phone: [phone]) 120-265509-06-2023 History and physical note Author [facility] October 28, 2022 7:30pm Note Date/Time October 27, 2022 2:40pm [facility] Medical Records Department [address] [place] [address] History & Physical Exam 10/27/22 1432 MR#: [id number] Acct: [id number] Name: KRISS MICHAEL Rep #:[id number] : 1980 42 From: Cindy Alexandre MD [...] father have surgery for esophageal cancer at [facility]. [facility] Medical History (Updated 10/28/22 @ 08:39 by [...] respite care. Charges/Coding Visit Charges Inpatient E&M: 10068 Init Hosp L2 10/28/221929 <Electronically signed by Cindy Alexandre MD> Cosigner Signature (if applicable): CC: Dr. Chente Conn MD; Dr. Cindy Alexandre MD~ Signed [facility] Work Phone: [phone]) 313-441309-06-2023 Progress note Author Barry Young [facility] October 28, 2022 8:40am Note Date/Time October 28, 2022 8:40am [facility] Medical Records Department [address] [place] [address] Progress Note - Hospitalist 10/28/2235 MR#: [id number] Acct: [id number] Name: KRISS MICHAEL Rep #:[id number] : 1980 42 From: Barry stover MD [...] home instructions Charges/Coding Visit Charges Inpatient E&M: 76747 Subs Hosp L2 10/28/22 0840 <Electronically signed by Barry Young MD> Cosigner Signature (if applicable): CC: ~ Signed [facility] Work Phone: [phone] 214-875305-09-2023 Miscellaneous Notes* Telephone Encounter - Chichi Fowler RN - 06/30/2022 4:42 PM EDT [facility] nursing returned patient's mother Yue message [...] e-mail. Mother will give order numbers to [facility]. Also recommended can apply stomahesive powder on mucosa. Advised maybe irritation from mucosa rubbing on pouch d/t prolapse vs the stool. Mom agreeable. Time spent: 30 minutes Chichi Fowler RN, BSN, CWOCN * Telephone Encounter - Amber Monreal RN - 06/30/2022 3:53 PM EDT [phone] Pt's mother called. She would like to discuss pt's stoma prolapse. documented in this encounterSumma Health [facility]05-01-[address] De La Rosa [facility] June 22, 2022 8:24pm Note Date/Time June 22, 2022 6:47pm [facility] Medical Records Department [address] [place] [address] Emergency Department Summary 06/22/22 MR#: [id number] Acct: [id number] Name: KRISS MICHAEL Rep #:[id number] : 1980 42 From: Siddharth De La [...] specifically obviously. No hematuria. [facility] Medical History Acute dyspnea Anemia in chronic [...] % (Auto) 67.2 Lymph % (Auto) 21.5 Big Stone % (Auto) 8.5 Eos % (Auto) 2.4 [...] Color Urine Clarity Urine pH Ur Specific Catlett Urine Protein Urine Glucose (UA) Urine Ketones Urine Occult Blood Urine Nitrite Urine Bilirubin Urine Urobilinogen Ur Leukocyte Esterase Urine RBC Urine WBC Ur Squamous Epith Cells Urine Bacteria Urine Mucus 06/22/22 06/22/22 19:10 19:20 WBC RBC Hgb Hct MCV MCH MCHC RDW Std Deviation RDW Coeff of Emilee Plt Count MPV Immature Gran % (Auto) Neut % (Auto) Lymph % (Auto) Big Stone % (Auto) Eos % (Auto) Baso % [...] Sl Cldy Urine pH 8.0 Ur Specific Catlett 1.010 Urine Protein 30 H Urine Glucose [...] 19:23 EDT Reading Location ID and State: [address] [place] [address] Tel , Service support , Rhythm Strip [...] your Primary Care Provider. Call [facility] ([phone]) or report to the closest Emergency Room. Call 911 if necessary. 06/22/222023 <Electronically signed by Siddharth De La Rosa MD> Cosigner Signature (if applicable): CC: Dr. Chente Conn MD ~ Signed [facility] Work Phone: [phone]) [phone] NoteHNO ID: [id number] Author: Cassie Cui RN Service: ? Author [...] Requested samples from [employer] for Coloplast SenSura Grabill MAXI Drainable pouch with soft outlet #30865. Order form provided. Also discussed use of [...] film. Pouching System: After reducing prolapse, applied Tonai Hollihesive long wedges to peristomal skin, Coloplast post-op pouch with window, Stomahesive paste, Mefix tape to frame Wear Time: 3-4 days goal Time Increment: 1 hour 15 minutes Cassie BAL, RN, [facility]WD[facility]04-24-2023 History of Present illness Narrative* [...] Uriah MAXI Drainable pouch with soft outlet #79620. Order form provided. Also discussed use of [...] effluent Current pouching system: Jazzmine Cohesive StomaWrap, Selden New Image flat flange with tape collar(cutting [...] RN - 06/15/2022 3:33 PM EDT The [address] [address] Patient: Kriss Michael Patient Address: [address] [place] [address] [place] [address] Preferred Gender: male Date of : 1980 Type of Stoma: End Descending Colostomy Diagnosis: Constipation K59.0 OSTOMY SUPPLY ORDER FORM One Piece Ostomy Pouch Item Type: Coloplast Post-op pouch with a window #91690 30 day use - 2 Boxes Coloplast SenSura Uriah MAXI Drainable Pouch with Soft Outlet Transparent Cut-to-fit 4 #95762 30 dayuse - 1 Box Tonia Hollihesive #7706 30 day use - 2 Boxes Procare Abdominal binder (62-74) #[id number] 30 day use - 2 Binders OR Procare Abdominal binder (45-62) #[id number] 30 day use - 2 Binders Refills: 11 Attending Physician: Dr. Leavitt For immediate authorization, please contact the physician s office. [facility] Nurse: VALERIANO Peters, CWOCN SIGNATURE: Cassie Cui RN PATIENT NAME: Kriss Michael DATE: June 15, 2022 TIME: 3:34 PM CONTACT #: [phone] documented in this encounterSumma Health [facility]04-24-2023 NoteHNO ID: [id number] Author: Cassie Cui RN Service: ? Author Type: Registered Nurse Type: Progress Notes Filed: 06/30/2022 4:35 PM Note Text: The [address] [address] Patient: Kriss Mcihael Patient Address: [address] [place] [address] [place] [address] Preferred Gender: male Date of : 1980 Type of Stoma: End Descending Colostomy Diagnosis: Constipation K59.0 OSTOMY SUPPLY ORDER FORM Coloplast SenSura Uriah MAXI Drainable Pouch with Soft Outlet Transparent Cut-to-fit 4 #62470 30 day use - 1 Box Coloplast Bed Drainage Bag #34655 30 day use-2 bags Associate Professor Of Law #5348 30 day use 1 Xavi Luna #7700 30 day use - 2 Boxes Procare Abdominal binder (62-74) #[id number] 30 day use - 2 Binders OR Procare Abdominal binder (45-62) #[id number] 30 day use - 2 Binders Refills: 11 Attending Physician: Dr. Leavitt For immediate authorization, please contact the physician?s office. [facility] Nurse: VALERIANO Peters, CWOCN Addendum by: VALERIANO Virgen, CWOCN SIGNATURE: Cassie Cui RN PATIENT NAME: Kriss Michael DATE: June 15, 2022 TIME: 3:34 PM CONTACT #: [phone] [facility]04-21-[address]oz [facility] June 12, 2022 12:31pm Note Date/Time June 12, 2022 10: 51am [facility] Medical Records Department [address] [place] [address] Emergency Department Summary 06/12/22 MR#: [id number] Acct: [id number] Name: KRISS MICHAEL Rep #:[id number] : 1980 42 From: Naveen Hidalgo PCP: [...] history of recent mission for aspiration pneumonia. [facility] Medical History Acute dyspnea Anemia in [...] % (Auto) 50.9 Lymph % (Auto) 35.9 Big Stone % (Auto) 8.1 Eos % (Auto) 3.3 [...] your Primary Care Provider. Call [facility] ([phone]) or report to the closest Emergency Room. Call 911 if necessary. 06/12/22 1231 <Electronically signed by Naveen Munoz DO> Cosigner Signature (if applicable): CC: Dr. Chente Conn MD ~ Signed [facility] Work Phone: [phone]) [phone] NoteHNO ID: [id number] Author: Yola Leavitt MD Service: ? Author [...] visit. Either the patient or their legal account services representative has been informed of the risks and benefits of -- and alternatives to -- treatment through a remote evaluation and consents to proceed with the evaluation remotely. Risk of morbidity, mortality and/or complications of treatment plan: moderate I spent a total of 36 minutes on the date of the service which included preparing to see the patient and [id number]-bl-hlkp patient care.[facility]03-15-20[facility] History of Present illness Narrative* I [...] and underwent a Jamie procedure with Dr eLavitt back in 2014. He has not been [...] included preparing to see the patient and uvxo-wv-dltm patient care. documented in this encounterSumma Health W[facility]02-21-2023 Miscellaneous Notes* Telephone Encounter - [...] see what could be done about this,. [phone] Ashly (mom) documented in this encounterSumma Health Wadsworth [facility] Center02-21-2023 Miscellaneous Notes* Telephone Encounter - Ebony Boateng - 04/14/2022 1:19 PM EST The patients mom stated that she can get into mychart. documented in this encounterSumma Health W[facility] Center20[address] De La [facility]re [facility] March 24, 2022 8:03pm Note Date/Time March 24, 2022 5 :37pm [facility] Medical Records Department [address] [place] [address] Emergency Department Summary 03/24/22 MR#: [id number] Acct: [id number] Name: KRISS MICHAEL Rep #:[id number] : 1980 42 From: Dario De La [...] similar symptoms: Yes Recent Illness/Hospitalization: Yes [facility] Medical History Acute dyspnea Anemia in chronic [...] 79.9 H Lymph % (Auto) 13.1 L Big Stone % (Auto) 5.3 Eos % (Auto) 1.3 [...] treatment for sepsis), Discussing w/Patient &/or Family/Manager Export, Discussing w/Consultants, Arranging Admission or Transfer and [...] MD [Primary Care Provider] - Disposition Disposition: [facility] What to do if you have Problems For any increased pain, shortness of breath, bleeding, nausea or vomiting, chestpain, or any unexpected problems, contact your Primary Care Provider. Call [facility] ([phone]) or report to the closest Emergency Room. Call 911 if necessary. 03/24/222002 <Electronically signed by Dario De La Torre MD> Cosigner Signature (if applicable): CC: Dr. Chente Conn MD ~ Signed [facility] Work Phone: 1([phone]) 564-172305-24-2019 History of Past illness Narrative* Problem Noted [...] latter does not explain HGB drop. - Alma removed - BP stable - MAP goal [...] to goal rate - finishing reglan 10mg l1mjpgy for 24 hours today - monitor ostomy [...] of this encounter (statuses as of 04/14/2022) [facility]05-24-2019 History of Past illness Narrative* [...] to goal rate - finishing reglan 10mg p3ctpqe for 24 hours today - monitor ostomy [...] of this encounter (statuses as of 04/14/2022) [facility]05-24-2019 History of Past illness Narrative* [...] latter does not explain HGB drop. - Alma removed - BP stable - MAP goal [...] to goal rate - finishing reglan 10mg j5pnxrf for 24 hours today - monitor ostomy [...] of this encounter (statuses as of 05/08/2022) [facility]05-24-2019 History of Past illness Narrative* [...] to goal rate - finishing reglan 10mg [id number] for 24 hours today - monitor ostomy [...] of this encounter (statuses as of 06/16/2022) [facility]05-24-2019 History of Past illness Narrative* [...] to goal rate - finishing reglan 10mg [id number] for 24 hours today - monitor ostomy [...] of this encounter (statuses as of 07/01/2022) [facility] CenterEvaluchristianacare note* Diagnosis Onset Date Resolution Status Chronic respiratory failure chronic [facility] Work Phone: evaluation note* Diagnosis Onset Date Resolution Status Chronic respiratory failure chronic Nonrheumatic mitral valve prolapse [facility] Work Phone: Evaluation note* Diagnosis Onset Date Resolution Status Nonrheumatic mitral valve prolapse [facility] Work Phone: Evaluation note* Diagnosis Onset Date Resolution Status Nonrheumatic mitral valve prolapse chronic Chronic respiratory failure [facility] Work Phone: Evaluation note* Diagnosis Onset Date Resolution Status Chronic respiratory failure chronic Acute dyspnea acute Cyanosis acute Hypoxia acute Cerebral palsy [facility] Work Phone: Evaluation note* Diagnosis Onset Date Resolution Status Chronic respiratory failure chronic Acute dyspnea acute Colostomy prolapse acute Cyanosis acute Hypoxia acute Pseudomonas pneumonia acute Cerebral palsy chronic Chronic respiratory failure [facility] Work Phone: Evaluation note* Diagnosis Onset Date Resolution Status Acute dyspnea acute Colostomy prolapse acute Cyanosis acute Hypoxia acute Pseudomonas pneumonia acute Cerebral palsy chronic Chronic respiratory failure chronic Pseudomonas pneumonia acute Chronic respiratory failure [facility] Work Phone: Evaluation note* Diagnosis Onset Date Resolution Status Cerebral palsy chronic Chronic respiratory failure chronic Acute dyspnea resolved Cyanosis resolved Hypoxia resolved Chronic respiratory failure chronic Chronic respiratory failure [facility] Work Phone: Evaluation note* Diagnosis Onset Date Resolution Status Cerebral palsy chronic Chronic respiratory failure chronic Acute dyspnea resolved Cyanosis resolved Hypoxia resolved Chronic respiratory failure chronic Chronic respiratory failure chronic Acidosis, lactic acute Aspiration into airway acute Hyperpyrexia acute Sepsis acute Sinus tachycardia acute Cerebral palsy chronic Chronic respiratory failure with hypoxia chronic [facility] Work Phone: Evaluation note* Diagnosis Functional disorder of stomach- Primary Unspecified functional disorder of stomach documented in this encounter [facility]* Diagnosis Onset Date Resolution Status Acidosis, lactic resolved Aspiration into airway resol alan Hyperpyrexia resolved Sepsis resolved Sinus tachycardia resolved [facility] Work Phone: Evaluation note* Diagnosis 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 Attention to colostomy documented in this encounter [facility] CenterEvaluation noteNo assessment information availableWSelect Medical Special[facility] Work Phone: Evaluation note* Diagnosis Onset Date Resolution Status Chronic respiratory failure with hypoxia chronic [facility] Work Phone: Evaluation note* Diagnosis Onset Date Resolution Status Cerebral palsy acute GI bleed resolved Hematemesis acute [facility] Work Phone: Evaluation note* Diagnosis Onset Date Resolution Status GI bleed resolved Hematemesis resolved [facility] Work Phone: Evaluation note* Diagnosis Onset Date Resolution Status Cerebral palsy chronic GI bleed resolved Hematemesis resolved Cerebral palsy chronic Chronic respiratory failure chronic [facility] Work Phone: Evaluation note* Diagnosis Onset Date Resolution Status Cerebral palsy chronic GI bleed resolved Hematemesis resolved Cerebral palsy chronic Chronic respiratory failure chronic Acidosis, lactic acute Acute hypoxemic respiratory failure acute Aspiration pneumonia acute Cerebral palsy chronic [facility] Work Phone: Evaluation note* Diagnosis Onset Date Resolution Status Cerebral palsy chronic GI bleed resolved Hematemesis resolved Cerebral palsy chronic Chronic respiratory failure chronic Acidosis, lactic acute Acute hypoxemic respiratory failure acute Aspiration pneumonia acute Emesis, persistent acute Cerebral palsy chronic Chronic respiratory failure chronic [facility] Work Phone: Evaluation note* Diagnosis Onset Date Resolution Status Cerebral palsy chronic Chronic respiratory failure chronic Cerebral palsy chronic Chronic respiratory failure chronic Acidosis, lactic resolved Acute hypoxemic respiratory failure resolved Emesis, persistent resolved [facility] Work Phone: History and physical note Author Lucia Dillard [facility] March 23, 2023 4:44pm Note Date/Time March 23, 2023 4 :37pm [facility] Medical Records Department [address] [place] [id number] H&P Exam - Hospitalist 03/23/23 1633 MR#: [id number] Acct: [id number] Name: KRISS MICHAEL Rep #:[id number] : 1980 43 From: Lucia Dillard MD [...] seizure disorder, and GERD who presented to [facility] 03/23/2023 due to concern for aspiration and [...] is presently not in any acute distress. [facility] Medical History Acute dyspnea Anemia in chronic [...] (Auto) 70.6 H, Lymph % (Auto) 21.7, [place] % (Auto) 5.1, Eos % (Auto) 2.0, [...] documentation, 56Minutes Charges/Coding Visit Charges Inpatient E&M: 63617 Init Hosp L2 03/23/23 1644 <Electronically signed by Lucia Dillard MD> Cosigner Signature (if applicable): CC: Dr. Chente Conn MD; Dr. Lucia Dillard MD~ Signed [facility] Work Phone: Hospital Discharge instructions Additional Instructions Please return if you notice any changes to the patient's oxygenation. Please follow with his primary care physicians as well as specialist for outpatient evaluation and further treatment.[facility] Work Phone: Hospital Discharge instructions Additional Instructions Continue your current medications as prescribed. Ativan as needed for anxiety. Follow-up with your doctor as needed or return if worse. His labs today and CAT scan were unremarkable. There is no signs of any blood clots. No signs of any pneumonia. [facility] Work Phone: Reason for referral (narrative)No reason for referral information availableWooBlanchard [facility] Work Phone: Chief Complaint and Reason [...] No May 19, 2021 9:15pm Power of Strategic Marketing Specialist No May 19 9:15pm Advance Directive Response Recorded Date/ Time Advance Directives No March 12, 2016 10:51am Living Will No November 30 11:11am Power of Strategic Marketing Specialist No November 30 11:11am Advance Directive Response Recorded Date/ Time Advance Directives No March 12, 2016 10:51am Living Will No November 30 3:13pm Power of Strategic Marketing Specialist No November 30 3:13pm Advance Directive Response Recorded Date/ Time Advance Directives No March 12, 2016 9:51am Living Will No November 30 2:13pm Power of Strategic Marketing Specialist No November 30 2:13pm Advance Directive Response Recorded Date/ Time Name of Medical Power of Strategic Marketing Specialist PT MOM February 24, 2022 4:16pm Advance Directives No March 12, 2016 9:51am Living Will No February 24 4:16pm Power of Strategic Marketing Specialist Yes February 24, 2 023 4:16pm Advance Directive Response Recorded Date/ Time Name of Medical Power of Strategic Marketing Specialist PT MOM February 24, 2022 4:16pm Name of Medical Power of Strategic Marketing Specialist parents Miky Pelaez March 24, 2022 5:11pm Advance Directives No March 12, 2016 9:51am Living Will No March 24 5:11pm Power of Strategic Marketing Specialist Yes March 24, 2022 5:11pm Advance Directive Response Recorded Date/ Time Name of Medical Power of Strategic Marketing Specialist PT MOM February 24, 2022 4:16pm Name of Medical Power of Strategic Marketing Specialist parents Miky viera nd Benigno March 24, 2022 5:11pm Advance Directives No March 12, 2016 9:51am Living Will No March 24 9:35pm Power of Strategic Marketing Specialist No March 24, 2022 9:35pm Latest Code [...] Date/ Time Name of Medical Power of Strategic Marketing Specialist PT MOM February 24, 2022 5:16pm Name of Medical Power of Strategic Marketing Specialist parents Miky Pelaez March 24, 2022 6:11pm Advance Directives No March 12, 2016 10:51am Living Will No March 24 10:35pm Power of Strategic Marketing Specialist No March 24, 2022 10:35pm Advance Directive Response Recorded Date/ Time Name of Medical Power of Strategic Marketing Specialist PT MOM February 24, 2022 5:16pm Name of Medical Power of Strategic Marketing Specialist parents Miky Pelaez March 24, 2022 6:11pm Advance Directives No March 12, 2016 10:51am Living Will No June 12, 2022 10:42am Power of Strategic Marketing Specialist No June 12 10:42am Advance Directive Response Recorded Date/ Time Name of Medical Power of Strategic Marketing Specialist PT MOM February 24, 2022 5:16pm Name of Medical Power of Strategic Marketing Specialist parents Miky Pelaez March 24, 2022 6:11pm Name of Medical Power of Strategic Marketing Specialist MOTHER June 22, 2022 6:28pm Advance Directives No March 12, 2016 10:51am Living Will No June 22, 2022 6: 28pm Power of Strategic Marketing Specialist Yes June 22, 2022 6:28pm Advance Directive Response Recorded Date/ Time Name of Medical Power of Strategic Marketing Specialist MOTHER June 22, 2022 6:28pm Advance Directives No March 12, 2016 10:51am Living Will No June 22, 2022 6: 28pm Power of Strategic Marketing Specialist Yes June 22, 2022 6:28pm Advance Directive Response Recorded Date/ Time Name of Medical Power of Strategic Marketing Specialist Matteo & Benigno S prosty October 27, 2022 5:26pm Advance Directives No March 12, 2016 10:51am Living Will No October 27, 023 5:26pm Power of Strategic Marketing Specialist Yes October 27, 2022 5:26pm Advance Directive Response Recorded Date/ Time Name of Medical Power of Strategic Marketing Specialist [employer] Benigno S prosty October 27, 2022 5:26pm Advance Directives No March 12, 2016 10:51am Living Will No December 10 9:56am Power of Strategic Marketing Specialist No December 10, 2022 9:56am Advance Directive Response Recorded Date/ Time Name of Medical Power of Strategic Marketing Specialist [employer] S prosty October 27, 2022 5:26pm Advance Directives No March 12, 2016 10:51am Living Will No December 10 2:53pm Power of Strategic Marketing Specialist No December 10, 2022 2:53pm Advance Directive Response Recorded Date/ Time Advance Directives No March 12, 2016 9:51am Living Will No January 16, 023 7:25pm Power of Strategic Marketing Specialist No January 16, 2023 7:25pm Name of Medical Power of Strategic Marketing Specialist [employer] S prosty October 27, 2022 4:26pm Advance Directive Response Recorded Date/ Time Name of Medical Power of Strategic Marketing Specialist Mother March 23, 2023 12:16pm Advance Directives No March 12, 2016 9:51am Living Will No Kiah 30th, 20 24 12:16pm Power of Strategic Marketing Specialist Yes March 23, 2023 12:16pm Advance Directive Response Recorded Date/ Time Name of Medical Power of Strategic Marketing Specialist Mother March 23, 2023 5:05pm Advance Directives No March 12, 2016 9:51am Living Will No March 23 5:05pm Power of Strategic Marketing Specialist Yes March 23, 2023 5:05pm Advance Directive Response Recorded Date/ Time Name of Medical Power of Strategic Marketing Specialist Mother March 23, 2023 5:05pm Name of Medical Power of Strategic Marketing Specialist parents April 13, 2023 12:23pm Advance Directives No March 12, 2016 9:51am Living Will Yes April 13 12:23pm Power of Strategic Marketing Specialist Yes April 13, 2023 12:23pm Advance Directive Response Recorded Date/ Time Name of Medical Power of Strategic Marketing Specialist Mother March 23, 2023 6:05pm Name of Medical Power of Strategic Marketing Specialist parents April 13, 2023 1:23pm Advance Directives No March 12, 2016 10:51am Living Will Yes April 13 1:23pm Power of Strategic Marketing Specialist Yes April 13, 2023 1:23pm Advance Directive Response Recorded Date/ Time Living Will Yes April 13 1:23pm Do you have a Healthcare Power of Strategic Marketing Specialist? Yes April 13, 2023 1:23pm Living Will No January 30 5:12pm Do you have a Healthcare Power of Strategic Marketing Specialist? No 2024 5:12pm Advance Directives No March 12, 2016 10:51am Advance Directive Response Recorded Date/ Time Living Will Yes April 13 1:23pm Do you have a Healthcare Power of Strategic Marketing Specialist? Yes April 13, 2023 1:23pm Advance Directives [...] Provider, Referr ing Provider Active Valarie Kee GAS BLENDER, GAS BLENDER-C Attending Provider Active Team Status: Active Member [...] Tolentino MD Other Provider Active Valarie Kee GAS BLENDER, GAS BLENDER-C Other Provider Active Dr. Lucia Dillard MD [...] Tolentino MD Other Provider Active Valarie Kee GAS BLENDER, GAS BLENDER-C Other Provider Active Dr. Lucia Dillard MD [...] Yovanny Moreira DO Other Provider Active Dr. Aramndo Plaza MD Other Provider Active Dr. John Tolentino MD Other Provider Active Valarie Kee GAS BLENDER, GAS BLENDER-C Other Provider Active Dr. Lucia Dillard MD [...] Tolentino MD Other Provider Active Valarie Kee GAS BLENDER, GAS BLENDER-C Other Provider Active Dr. Lucia Dillard MD [...] MD Other Provider Active Valarie Kee NP, GAS BLENDER-C Other Provider Active Dr. Lucia Dillard MD [...] MD Other Provider Active Valarie Kee NP, GAS BLENDER-C Other Provider Active Dr. Lucia Dillard MD [...] Tolentino MD Other Provider Active Valarie Kee GAS BLENDER, GAS BLENDER-C Other Provider Active Dr. Lucia Dillard MD [...] Tolentino MD Other Provider Active Valarie Kee GAS BLENDER, GAS BLENDER-C Other Provider Active Dr. Fiona Echavarria MD [...] Tolentino MD Other Provider Active Valarie Kee GAS BLENDER, GAS BLENDER-C Other Provider Active Dr. Fiona Echavarria MD [...] Tolentino MD Other Provider Active Valarie Kee GAS BLENDER, GAS BLENDER-C Other Provider Active Team Status: Inactive Member [...] Tolentino MD Other Provider Active Valarie Kee GAS BLENDER, GAS BLENDER-C Other Provider Active Mammography Technologist Relationship Specialty Start Date End Date Chente Perkins MD [address] [place] [address] PCP - General 06/03/00 [facility] 05/19/18 Mammography Technologist Relationship Specialty Start Date End Date Chente Perkins MD [address] [place] [address] PCP - General 06/03/00 [facility] 05/19/18 Mammography Technologist Relationship Specialty Start Date End Date Chente Perkins MD [address] [place] [address] PCP - General 06/03/00 [facility] [...] Tolentino MD Other Provider Active Valarie Kee GAS BLENDER, GAS BLENDER-C Other Provider Active Dr. Lucia Dillard MD [...] Tolentino MD Other Provider Active Valarie Kee GAS BLENDER, GAS BLENDER-C Other Provider Active Dr. Lucia Dillard MD [...] Tolentino MD Other Provider Active Valarie Kee GAS BLENDER, GAS BLENDER-C Other Provider Active Dr. Lucia Dillard MD [...] Tolentino MD Other Provider Active Valarie Kee GAS BLENDER, GAS BLENDER-C Other Provider Active Dr. Lucia Dillard MD [...] Tolentino MD Other Provider Active Valarie Kee GAS BLENDER, GAS BLENDER-C Other Provider Active Dr. Lucia Dillard MD [...] Tolentino MD Other Provider Active Valarie Kee GAS BLENDER, GAS BLENDER-C Other Provider Active Dr. Lucia Dillard MD [...] MD Other Provider Active Valarie Kee NP, GAS BLENDER-C Other Provider Active Dr. Lucia Dillard MD [...] Armando Plaza MD Other Provider Active Dr. Jhon Tolentino MD Other Provider Active Valarie Kee NP, GAS BLENDER-C Other Provider Active Dr. Lucia Dillard MD [...] MD Other Provider Active Valarie Kee NP, GAS BLENDER-C Other Provider Active Dr. Roberto Hathaway MD [...] Tolentino MD Other Provider Active Valarie Kee GAS BLENDER, GAS BLENDER-C Other Provider Active Dr. Roberto Hathaway MD [...] MD Other Provider Active Valarie Kee NP, GAS BLENDER-C Other Provider Active Dr. Roberto Hathaway MD [...] Tolentino MD Other Provider Active Valarie Kee GAS BLENDER, GAS BLENDER-C Other Provider Active Dr. Roberto Hathwaay MD Other Provider Active Dr. Luis Simon MD Other Provider Active Dr. Cindy Alexandre MD Attending Provider Active Dr. Lucia Dillard MD Other Provider Active Dr. Luis Carlos eHnderson MD Other Provider Active Team Status: Inactive Member Role Status Dates Dr. Chente Conn MD Primary Care Provider Active Dr. Naveen Munoz DO Referring Provider, Emergency P zulema Active Mammography Technologist Relationship Specialty Start Date End Date Chente Perkins MD [address] [place] [id number] PCP - General 06/03/00 [facility] 05/19/18 Team [...] Moreira , Other Provider Active Dr. Mckinley rTistan MD Other Provider Active Dr. Cari Cavazos [...] Patrice Langley MD Other Provider Active Dr. Groan Rose MD Other Provider Active Dr. Luis [...] Torey Huffman MD Primary Care Provider, Attending [facility] Active Team Status: Active Member Role [...] 2024 End: April 04, 2024 Amber Dior GAS BLENDER-C Attending Provider Active Start: April 04, 2024 End: April 04, 2024 Dr. Chente Conn MD Primary Care Provider Active Start: April 04, 2024 End: April 04, 2024 Team Status: Inactive Member Role Status Dates Dr. Chente Conn MD Primary Care Provider Active Start: April 25, 2024 End: April 25, 2024 Dr. Chente Cnon MD Attending Provider Active Start: April 25, [...] 2024 End: May 09, 2024 Valarie Kee GAS BLENDER, GAS BLENDER-C Attending Provider Active Start: May 09, 2024 End: May 09, 2024 Valarie Kee GAS BLENDER, GAS BLENDER-C Referring Provider Active Start: May 09, 2024 [...] 2024 End: May 09, 2024 Valarie Kee GAS BLENDER, GAS BLENDER-C Attending Provider Active Start: May 09, 2024 End: May 09, 2024 Valarie Kee GAS BLENDER, GAS BLENDER-C Referring Provider Active Start: May 09, 2024 [...] 2024 End: May 09, 2024 Valarie Kee GAS BLENDER, GAS BLENDER-C Attending Provider Active Start: May 09, 2024 End: May 09, 2024 Valarie Kee GAS BLENDER, GAS BLENDER-C Referring Provider Active Start: May 09, 2024 [...] or prosecute any alcohol or drug abuse patient.[facility] CenterIn the event this information is protected by the Federal Confidentiality of Alcohol and Drug Abuse Patient Records regulations: The Federal rules restrict any use of the information to criminally investigate or prosecute any alcohol or drug abuse patient.[facility] CenterIn the event this information is protected by the Federal Confidentiality of Alcohol and Drug Abuse Patient Records regulations: The Federal rules restrict any use of the information to criminally investigate or prosecute any alcohol or drug abuse patient.[facility] CenterIn the event this information is protected by the Federal Confidentiality of Alcohol and Drug Abuse Patient Records regulations: The Federal rules restrict any use of the information to criminally investigate or prosecute any alcohol or drug abuse patient.[facility] CenterIn the event this information is protected by the Federal Confidentiality of Alcohol and Drug Abuse Patient Records regulations: The Federal rules restrict any use of the information to criminally investigate or prosecute any alcohol or drug abuse patient.[facility] Reason for Visit (unrecogniz ed section and content) Reason Comments Patient Update Patient Question Reason Comments Patient Update Reason Comments Follow Up Reason Comments Stoma Consult (unrecognized sect ion and content) No Status Records FoundNo Status Records Found INFORMATION SOURCE (unrecogn ized section and content) DATE CREATED AUTHOR 07/02/2022 [facility] DATE CREATED AUTHOR 'S LAN LOVE [...] BE BASED ON THE PRIMARY CLINICAL RECORDS. [facility].To [facility]. provides no warranty or guarantee of the accuracy or completeness of information in this document.
--- NOTE | 2024-09-03 14:57 | CPS ---
Vent settings confirmed with mom.
[2024-09-03] MEDS: GABAPENTIN 250 MG/5 ML SOLUTION 500 MG GT (17:42)
[2024-09-03] MEDS: TESTOSTERONE TD (17:44)
[2024-09-03] MEDS: Jevity 1.5 1,000 ML 50 ML GT (18:30)
[2024-09-03 19:45] VITALS: O2SAT 96
[2024-09-03 22:24] VITALS: PULSE 64; RESP 11; O2SAT 99
[2024-09-03] MEDS: ESOMEPRAZOLE MAGNESIUM 40 MG SUSPDR.PKT GT (22:33)
[2024-09-04] VITALS (17 sets, daily range): BP systolic 95–152; BP diastolic 66–107; PULSE 63–148; RESP 10–25; TEMP 35.8–37.4; O2SAT 91–100; BMI 36.7
[2024-09-04] MEDS: GABAPENTIN 250 MG/5 ML SOLUTION 500 MG GT ×5 (00:23→23:03)
--- NOTE | 2024-09-04 07:41 | PN.HOSP_ITS ---
Reason for Visit Chief Complaint: Respite care Subjective Subjective No issues overnight. Objective Data Objective Data Vital Signs: Vital Signs Temp Pulse Resp BP Pulse Ox O2 Del Method O2 Flow Rate 35.8 C L 94 16 122/97 H 98 T-piece 2 09/04/24 04:00 09/04/24 05:07 09/04/24 05:07 09/04/24 04:00 09/04/24 05:40 09/04/24 05:40 09/04/24 05:40 FiO2 28 09/04/24 04:00 Oxygen Flow Rate (L/min) 2 Oxygen Delivery Method T-piece Weight: 84.9 kg Body Mass Index (BMI) 36.7 Physical Exam Const Constitutional Narrative: Nonverbal. On oxygen through trach. Afebrile. Resp normal respiratory effort and no retractions Cardio regular rate, regular rhythm, S1 normal heart sound and S2 normal heart sound GI normal to inspection, nondistended, normoactive bowel sounds, soft to palpation, non-tender and non-distended Extremity Extremity Narrative: Plantar contractions bilaterally. Assessment & Plan Assessment/Plan (1) Respite care available: PLAN: Plan Respite care admission with underlying significant spastic quadriplegia with cer ebral palsy with chronic hypoxic and hypercarbic respiratory failure with tracheostomy, ventilator dependent with chronic dysphagia status post PEG tube placement: * Will admit to the ICU as an MS status for more aggressive care given complicated history, will continue routine ostomy care, barrier cream as needed, maintain on aspiration precautions, continue home tube feed per home regimen, continue aggressive pulmonary toileting regimen in addition to pulmonary recommended Mucinex, Singulair, Zyrtec as well as DuoNeb therapies with attempt maintain oxygen saturation 93% or higher, will continue patient home baclofen as well as Ativan as needed regimen in addition to metoclopramide with his tube feeds, continue home vent settings, continue chronic Augustin. Chronic medical conditions: * Chronic normocytic anemia with history of previous GI bleeds: Most recent hemoglobin noted 08/22/2024 with hemoglobin 10.1, MCV 85.3, baseline hemoglobin 9-10, stable, will obtain upon admission and defer further labs unless necessary. Will maintain on PPI. * Seizure disorder: Will continue patient phenobarbital and gabapentin regimen. * History of VTE: Patient with previous history of DVT, PE however had significant issues with thrombocytopenia eventually transition to Lovenox and completed therapy, will maintain on SCDs given respect care admission. If any concerns arise certainly may transition to chemoprophylaxis. * Chronic asthma with allergic rhinitis: Will continue oxygen supplementation for chronic regimen as noted above, will maintain on home inhaler regimen with as needed breakthrough albuterol if necessary, will continue patient's montelukast, cetirizine home regimen. * GERD: Will maintain on patient PPI. * Hypotestosteronism, hypogonadism: Will continue patient home testosterone topi nery application. DVT prophylaxis: Given this is respite care will defer prophylaxis and attempt SCDs only if patient willing to tolerate. CODE STATUS: Full code. Charges/Coding Visit Charges Inpatient E&M: 06171 Subs Hosp L2
--- NOTE | 2024-09-04 07:48 | CPS ---
For pt home unit. This RT was in the room with pt during treatment.
[2024-09-04] MEDS: CHOLECALCIFEROL 15 GT (08:14)
[2024-09-04] MEDS: DOXAZOSIN MESYLATE 1 MG TABLET 2 MG PO (08:16)
[2024-09-04] MEDS: guaiFENesin 10 ML UDC (200MG/10ML) GT (08:18)
[2024-09-04] MEDS: PLECANATIDE 3 MG TABLET GT (08:19)
[2024-09-04] MEDS: ESOMEPRAZOLE MAGNESIUM 40 MG SUSPDR.PKT GT ×2 (08:21→20:44)
[2024-09-04] MEDS: MONTELUKAST 4 MG PO (08:21)
[2024-09-04] MEDS: LORazepam 2 MG/ML Bottle GT (08:54)
[2024-09-04] MEDS: BACLOFEN 5 MG/ML 20 MG PO ×3 (10:18→23:02)
--- NOTE | 2024-09-04 10:28 | WOUNDNOTE ---
In to assess the stoma to the left abdomen. ostomy appliance intact. patient with very large stomal prolapse. appears worse than last admission. stoma takes us most of the appliance so there is little room for stool. some mild irritation to the stoma from rubbing on the appliance as well. appliance emptied for approx 200cc's liquid brown stool. will monitor appliance. pt is in for respite care for a few days. extra appliances in the room.
[2024-09-04] MEDS: Acetaminophen 650 MG/20 ML UDC GT (11:07)
[2024-09-04] MEDS: TESTOSTERONE TD (11:07)
--- NOTE | 2024-09-04 13:15 | NURSING ---
Attempted to call Dr. Conn's office at [phone] to ask about Lorazepam order. Unable to reach anybody at this time, voicemail states staff out out till 1:30pm. Will try again later.
--- NOTE | 2024-09-04 16:10 | CASEMGMT ---
RE CM: Hospital Issued Notice of Noncoverage reviewed with pt's father/guardian who signed form. Copy provided to father/guardian and original placed on pt's paper chart. Rosa Kim RN ACM
[2024-09-04] MEDS: CETIRIZINE HCL 1 MG/ML 10 MG GT (17:03)
[2024-09-05] VITALS (9 sets, daily range): BP systolic 102–125; BP diastolic 67–76; PULSE 72–83; RESP 10–18; TEMP 36.3–36.6; O2SAT 94–97; BMI 36.5
[2024-09-05] MEDS: Jevity 1.5 1,000 ML 50 ML GT (00:46)
[2024-09-05] MEDS: GABAPENTIN 250 MG/5 ML SOLUTION 500 MG GT ×4 (05:02→23:09)
[2024-09-05] MEDS: BACLOFEN 5 MG/ML 20 MG PO ×4 (05:02→23:09)
--- NOTE | 2024-09-05 07:17 | PN.HOSP_ITS ---
Reason for Visit Chief Complaint: Respite care Subjective Subjective Heart rates been doing well today. Objective Data Objective Data Vital Signs: Vital Signs Temp Pulse Resp BP Pulse Ox O2 Del Method O2 Flow Rate 36.3 C L 83 14 125/75 H 96 Trach Collar 10 09/05/24 06:00 09/05/24 06:00 09/05/24 06:00 09/05/24 06:00 09/05/24 06:00 09/05/24 06:00 09/05/24 05:38 FiO2 35 09/05/24 05:38 Oxygen Flow Rate (L/min) 10 Oxygen Delivery Method Trach Collar Weight: 84.9 kg Body Mass Index (BMI) 36.5 Intake & Output: Intake and Output for Last 24 Hours 09/03/24 09/04/24 09/05/24 23:59 23:59 23:59 Intake Total 952.5 / 952.5 107.5 / 107.5 Output Total 400 / 400 Balance 552.5 / 552.5 107.5 / 107.5 Physical Exam Const Constitutional Narrative: Awake. Resp Resp Narrative: Coarse breath sounds bilaterally. GI GI Narrative: Nontender. Nondistended Extremity Extremity Narrative: Plantar flexion contracture Assessment & Plan Assessment/Plan (1) Respite care available: PLAN: Plan Respite care admission with underlying significant spastic quadriplegia with cerebral palsy with chronic hypoxic and hypercarbic respiratory failure with tracheostomy, ventilator dependent with chronic dysphagia status post PEG tube placement: * Will admit to the ICU as an MS status for more aggressive care given complicated history, will continue routine ostomy care, barrier cream as needed, maintain on aspiration precautions, continue home tube feed per home regimen, continue aggressive pulmonary toileting regimen in addition to pulmonary recommended Mucinex, Singulair, Zyrtec as well as DuoNeb therapies with attempt maintain oxygen saturation 93% or higher, will continue patient home baclofen as well as Ativan as needed regimen in addition to metoclopramide with his tube feeds, continue home vent settings, continue chronic Augustin. Chronic medical conditions: * Chronic normocytic anemia with history of previous GI bleeds: Most recent hemoglobin noted 08/22/2024 with hemoglobin 10.1, MCV 85.3, baseline hemoglobin 9-10, stable, will obtain upon admission and defer further labs unless necess cornelio. Will maintain on PPI. * Seizure disorder: Will continue patient phenobarbital and gabapentin regimen. * History of VTE: Patient with previous history of DVT, PE however had significant issues with thrombocytopenia eventually transition to Lovenox and completed therapy, will maintain on SCDs given respect care admission. If any concerns arise certainly may transition to chemoprophylaxis. * Chronic asthma with allergic rhinitis: Will continue oxygen supplementation for chronic regimen as noted above, will maintain on home inhaler regimen with as needed breakthrough albuterol if necessary, will continue patient's montelukast, cetirizine home regimen. * GERD: Will maintain on patient PPI. * Hypotestosteronism, hypogonadism: Will continue patient home testosterone topical application. Tachycardia: Is a chronic problem that appears to be more reactive to * Is being mad or other issues. So far that is currently improved. Patient did receive Ativan to help calm him down this is something that parents been doing home which we will continue here if needed. DVT prophylaxis: Given this is respite care will defer prophylaxis and attempt SCDs only if patient willing to tolerate. CODE STATUS: Full code. Patient remaining stable. Patient to remain in the hospital until family is able to take him back. No active medical issues at this time. Charges/Coding Visit Charges Inpatient E&M: 45029 Subs Hosp L2
[2024-09-05] MEDS: CHOLECALCIFEROL 15 GT (08:41)
[2024-09-05] MEDS: DOXAZOSIN MESYLATE 1 MG TABLET 2 MG PO (08:42)
[2024-09-05] MEDS: guaiFENesin 10 ML UDC (200MG/10ML) GT (08:43)
[2024-09-05] MEDS: PLECANATIDE 3 MG TABLET GT (08:43)
[2024-09-05] MEDS: TESTOSTERONE TD (08:44)
[2024-09-05] MEDS: ESOMEPRAZOLE MAGNESIUM 40 MG SUSPDR.PKT GT ×2 (08:45→21:01)
[2024-09-05] MEDS: MONTELUKAST 4 MG PO (08:46)
--- NOTE | 2024-09-05 09:17 | CPS ---
Home Vest and Cough Assist performed with patient. Tolerated well.
[2024-09-05] MEDS: CETIRIZINE HCL 1 MG/ML 10 MG GT (16:30)
[2024-09-06 00:30] VITALS: BP 118/74; PULSE 68; RESP 14; TEMP 36.9; O2SAT 98
[2024-09-06] MEDS: LORazepam 2 MG/ML Bottle GT (03:32)
[2024-09-06 04:01] VITALS: PULSE 86; RESP 12; O2SAT 94
[2024-09-06] MEDS: BACLOFEN 5 MG/ML 20 MG PO (05:07)
[2024-09-06] MEDS: GABAPENTIN 250 MG/5 ML SOLUTION 500 MG GT (05:07)
[2024-09-06] MEDS: Jevity 1.5 1,000 ML 50 ML GT (05:09)
[2024-09-06 06:30] VITALS: BP 131/98; PULSE 91; RESP 12; TEMP 37.2; O2SAT 95
[2024-09-06 06:40] VITALS: O2SAT 95
--- NOTE | 2024-09-06 07:55 | PCM.DC.SUM ---
Providers Date of Admission: 09/03/24 Primary Care Physician: Dr. Timmy Conn MD Reason For Visit: RESPITE CARE Diagnosis Discharge Diagnosis (1) Respite care available: Status: Acute Plan Respite care admission with underlying significant spastic quadriplegia with cerebral palsy with chronic hypoxic and hypercarbic respiratory failure with tracheostomy, ventilator dependent with chronic dysphagia status post PEG tube placement: Will admit to the ICU as an MS status for more aggressive care given complicated history, will continue routine ostomy care, barrier cream as needed, maintain on aspiration precautions, continue home tube feed per home regimen, continue aggressive pulmonary toileting regimen in addition to pulmonary recommended Mucinex, Singulair, Zyrtec as well as DuoNeb therapies with attempt maintain oxygen saturation 93% or higher, will continue patient home baclofen as well as Ativan as needed regimen in addition to metoclopramide with his tube feeds, continue home vent settings, continue chronic Augustin. Chronic medical conditions: Chronic normocytic anemia with history of previous GI bleeds: Most recent hemoglobin noted 08/22/2024 with hemoglobin 10.1, MCV 85.3, baseline hemoglobin 9-10, stable, will obtain upon admission and defer further labs unless necessary. Will maintain on PPI. Seizure disorder: Will continue patient phenobarbital and gabapentin regimen. History of VTE: Patient with previous history of DVT, PE however had significant issues with thrombocytopenia eventually transition to Lovenox and completed therapy, will maintain on SCDs given respect care admission. If any concerns arise certainly may transition to chemoprophylaxis. Chronic asthma with allergic rhinitis: Will continue oxygen supplementation for chronic regimen as noted above, will maintain on home inhaler regimen with as needed breakthrough albuterol if necessary, will continue patient's montelukast, cetirizine home regimen. GERD: Will maintain on patient PPI. Hypotestosteronism, hypogonadism: Will continue patient home testosterone topical application. Tachycardia: Is a chronic problem that appears to be more reactive to Is being mad or other issues. So far that is currently improved. Patient did receive Ativan to help calm him down this is something that parents been doing home which we will continue here if needed. DVT prophylaxis: Given this is respite care will defer prophylaxis and attempt SCDs only if patient willing to tolerate. CODE STATUS: Full code. Medications at Discharge Home Medications phenobarbital 20 mg/5 mL (4 mg/mL) oral elixir 60 mg G-tube 0830,2100 SEIZURES 02/19/17 metoclopramide HCl 5 mg/5 mL oral solution 10 mg feeding tube 0830,1600,2100 STOMACH 09/16/18 Cough Assist 1 dose .Route .MEDSUPPLY assist in clearing secretions 12/25/18 oxygen concentrator 1 dose .Route .MEDSUPPLY second unit, 4 LPM cont all modalities 12/25/18 gabapentin 250 mg/5 mL oral solution 500 mg G-tube 0000,0600,1200,1800 SEIZURES 09/26/19 albuterol sulfate 2.5 mg/3 mL (0.083 %) solution for nebulization 2.5 mg inhalation Q4H PRN Sob &/Or Wheezing 11/27/20 doxazosin 2 mg tablet 2 mg PO 0830 BLOOD PRESSURE 11/30/21 cholecalciferol (vitamin D3) 10 mcg/mL (400 unit/mL) oral drops 15 mcg feeding tube 0830 SUPPLEMENT 03/24/22 acetaminophen 650 mg/20.3 mL oral suspension 650 mg feeding tube 0000,0600,1200,1800 PRN PAIN 10/24/22 aluminum-mag hydroxide-simethicone 200 mg-200 mg-20 mg/5 mL oral susp 5 ml PO 0000,0600,1200,1800 PRN ANTACID 10/24/22 baclofen 20 mg tablet 20 mg feeding tube Q6H MUSCLE SPASMS 12/10/22 ondansetron 4 mg disintegrating tablet 4 mg PO Q8H PRN NAUSEA/VOMITING #30 tabs 12/13/22 esomeprazole magnesium 40 mg granules delayed release for susp (Nexium Packet) 40 mg G-tube BID ACID REFLUX 03/23/23 ipratropium 0.5 mg-albuterol 3 mg (2.5 mg base)/3 mL nebulization soln 3 ml inhalation Q4H PRN SOB &/OR WHEEZING 03/23/23 cetirizine 1 mg/mL oral solution 10 mg (10 mL) feeding tube 1600 ALLERGIES #480 mL 09/30/23 montelukast 4 mg oral granules in packet (Singulair) 4 mg PO DAILY ASTHMA #90 ea 09/30/23 lorazepam 2 mg/mL oral concentrate (Lorazepam Intensol) 2 mg feeding tube DAILY PRN agitation 01/04/24 food supplemt, lactose-reduced 0.04 gram-1.05 kcal/mL oral liquid (Ensure Original) 1,000 ml PO QDAY 04/04/24 guaifenesin 200 mg/5 mL oral liquid 2 mg feeding tube 0830 COUGH/CONGESTION 04/04/24 plecanatide 3 mg tablet 3 mg G-tube 0830 BOWELS #90 tabs 04/05/24 testosterone (AndroGel) 1 pump topical QDAY #75 grams 07/24/24 Hospital Course Operations None Procedures None Summary of Care Provided Hospital Course: Patient mated for respite care. Patient was maintained on open ventilator at night, T-piece during the day. Patient did have some tachycardia initially but did receive lorazepam per instructions from the family. Patient's course was uncomplicated and patient to be discharged today. Weight / BMI Weight Weight: 84.9 kg Body Mass Index (BMI) 36.5 D/C Instructions DC O2, CPAP, BIPAP Needs Home O2 Discharge instructions: Yes Type of respiratory needs?: Oxygen Oxygen frequency: Continuous Continuous oxygen liters per minute: Ventilator and trach mask DC home with Oxygen: Yes Home O2 MD Review: I have reviewed the oxygen testing, and the patient qualifies for home oxygen equipment and portability. The patient is mobile in the home and the community. Meaningful Use Info Meaningful Use Meaningful Use Diagnoses (Choose all that apply): None applicable Discharge Plan Admission Admit Date/Time: 09/03/24 13:28 Primary Reason for Your Visit: Respite care Attending Provider: Torey James Primary Care Provider: Timmy Conn Consulting Providers: Tania Randle Discharge Orders/Prescriptions Prescriptions: Continued albuterol sulfate 2.5 mg /3 mL (0.083 %) solution for nebulization 2.5 mg inhalation Q4H PRN (Reason: Sob &/Or Wheezing) cetirizine 1 mg/mL solution 10 mg feeding tube 1600 Qty: 480 11RF montelukast [Singulair] 4 mg granules in packet 4 mg PO DAILY Qty: 90 3RF Patient Comments: NEW RX THAT HAS NOT BEEN STARTED guaifenesin 200 mg/5 mL liquid 2 mg feeding tube 0830 Patient Comments: mom states giving 0.5ml to help with mucus plugs at 9am Ensure Original 0.04-1.05 gram-kcal/mL liquid 1,000 ml PO QDAY Rx Instructions: continuous g-tube metoclopramide HCl 5 mg/5 mL solution 10 mg feeding tube 0830,1600,2100 phenobarbital 20 MG/5 ML elixir 60 mg G-tube 0830,2100 Cough Assist 1 dose .Route .MEDSUPPLY Rx Instructions: Inspiratory and Expiratory times of 20-40 seconds with a 1-2 second pause. oxygen concentrator 1 dose .Route .MEDSUPPLY Rx Instructions: As directed gabapentin 250 MG/5 ML solution 500 mg G-tube 0000,0600,1200,1800 Patient Comments: PER PT HOME MED LIST: GABAPENTIN DOSING -IF MO'S HEART RATE IS LOW I DON'T ALWAYS GIVE THE WHOLE 10ML GABAPENTIN DOSE MY GUIDES ARE: PULSE <50: I MIGHT WAIT 1 HOUR FOR HIM TO BE MORE AWAKE. GIVE 4 ML PULSE IN THE 50'S: GIVE 5ML OR 6 ML PULSE IN THE 60'S: GIVE 6ML TO 7ML PULSE 69>: GIVE THE WHOLE 10ML doxazosin 2 mg tablet 2 mg GT 0830 cholecalciferol (vitamin D3) 10 mcg/mL (400 unit/mL) drops 15 mcg feeding tube 0830 alum-mag hydroxide-simeth 200-200-20 mg/5 mL suspension 5 ml PO 0000,0600,1200,1800 PRN (Reason: ANTACID) acetaminophen 650 mg/20.3 mL suspension 650 mg feeding tube 0000,0600,1200,1800 PRN (Reason: PAIN ) baclofen 20 mg tablet 20 mg feeding tube Q6H Patient Comments: gets compounded suspension from [facility]. ondansetron 4 mg tablet,disintegrating 4 mg PO Q8H PRN (Reason: NAUSEA/VOMITING) Qty: 30 0RF ipratropium-albuterol 0.5 mg-3 mg(2.5 mg base)/3 mL solution for nebulization 3 ml inhalation Q4H PRN (Reason: SOB &/OR WHEEZING) esomeprazole magnesium [Nexium Packet] [address] for susp in packet 40 mg G-tube BID lorazepam [Lorazepam Intensol] 2 mg/mL concentrate 2 mg feeding tube DAILY PRN (Reason: agitation) plecanatide 3 mg tablet 3 mg GT 0830 Qty: 90 2RF testosterone [AndroGel] 20.25 mg/1.25 gram (1.62 %) gel in metered-dose pump 1 pump topical QDAY Qty: 75 5RF Rx Instructions: apply 1 pump amount over max area of ONE upper arm and shoulder Referrals / Follow Up: Timmy Conn MD [Primary Care Provider] - Disposition Disposition (needs filled in before D/C Order can be placed): Home, Self Care Charges/Coding Visit Charges Inpatient E&M: 70238 Disch Hosp
[2024-09-06] MEDS: CHOLECALCIFEROL 15 GT (08:08)
[2024-09-06] MEDS: DOXAZOSIN MESYLATE 1 MG TABLET 2 MG PO (08:08)
[2024-09-06] MEDS: PLECANATIDE 3 MG TABLET GT (08:08)
[2024-09-06] MEDS: guaiFENesin 10 ML UDC (200MG/10ML) GT (08:08)
[2024-09-06 08:21] VITALS: BP 137/89; PULSE 94; RESP 18; TEMP 36.9; O2SAT 96
[2024-09-06] MEDS: TESTOSTERONE TD (09:44)
[2024-09-06] MEDS: MONTELUKAST 4 MG PO (09:44)
[2024-09-06] MEDS: ESOMEPRAZOLE MAGNESIUM 40 MG SUSPDR.PKT GT (09:44)
--- NOTE | 2024-09-06 11:11 | WOUNDNOTE ---
Ostomy appliance remains intact. pt going home today with parents. mother takes care of the ostomy changes at home and denies any needs.
--- NOTE | 2024-09-06 16:41 | CPS ---
Taken off vent, placed on cool aerosol. Performed vest therapy and cough assist.
== END 2024-09-06 11:10 | disposition home or self-care (01) ==
PROVIDERS: Admitting Provider Family Medicine; PCP Family Medicine
DX: Z75.5 Holiday relief care (principal); Z93.0 Tracheostomy status; G80.0 Spastic quadriplegic cerebral palsy; J96.12 Chronic respiratory failure with hypercapnia; J96.11 Chronic respiratory failure with hypoxia; G40.909 Epilepsy, unspecified, not intractable, without status epilepticus; R00.0 Tachycardia, unspecified; D69.6 Thrombocytopenia, unspecified; Z86.718 Personal history of other venous thrombosis and embolism; Z86.711 Personal history of pulmonary embolism; K21.9 Gastro-esophageal reflux disease without esophagitis; J45.909 Unspecified asthma, uncomplicated; Z99.81 Dependence on supplemental oxygen; Z79.899 Other long term (current) drug therapy
CPT/HCPCS: 31720; 94002; 94003; 94668; 94762; 97802; 99221; G0378; G0379

== ENCOUNTER 2024-09-18 10:53 | Outpatient (RCR) | payer MEDICARE, MEDICAID, SELFPAY ==
[2024-09-18 11:03] LABS: Hematocrit 34.0 % (40-54); Hemoglobin 10.7 g/dL (13.0-16.5); Immature Granulocytes Count 0.020 X10^3/uL (0.0-0.0); Mean Corp Hgb Conc 31.5 g/dL (32-36); Mean Corpuscular Volume 87.4 fL (80-94); Mean Platelet Vol. 10.3 fl (6.2-12.0); NRBC Flagged by Analyzer 0 % (0-5); Platelet Count 258 K/mm3 (150-450); RBC Distribution Width CV 17.4 % (11.6-14.6); RBC Distribution Width SD 55.6 fl (35.1-43.9); Red Blood Count 3.89 M/mm3 (4.6-6.2); White Blood Count 6.1 K/mm3 (4.4-11.0)
[2024-09-18 11:53] LABS: Anion Gap 12 (5-15); BUN 14 mg/dL (4-19); BUN/Creat Ratio 37.0 RATIO (10-20); Calcium,Total 9.1 mg/dL (7.6-11.0); Carbon Dioxide 27.6 mmol/L (21.0-32.0); Chloride 99 mmol/L (98-108); Glucose 95 mg/dL (70-99); Potassium 4.5 mmol/L (3.3-5.1)
== END 2024-09-21 23:59 ==
LOC: LABSPEC 10:53
PROVIDERS: PCP Family Medicine; Referring Provider Family Medicine; Visit Provider Family Medicine
DX: E87.6 Hypokalemia (principal)
CPT/HCPCS: 80048; 85025

== ENCOUNTER 2024-10-16 11:16 | Outpatient (RCR) | payer MEDICARE, MEDICAID, SELFPAY ==
[2024-10-16 11:30] LABS: Hematocrit 29.5 % (40-54); Hemoglobin 9.4 g/dL (13.0-16.5); Immature Granulocytes Count 0.010 X10^3/uL (0.0-0.0); Mean Corp Hgb Conc 31.9 g/dL (32-36); Mean Corpuscular Volume 86.5 fL (80-94); Mean Platelet Vol. 10.8 fl (6.2-12.0); NRBC Flagged by Analyzer 0 % (0-5); Platelet Count 195 K/mm3 (150-450); RBC Distribution Width CV 17.0 % (11.6-14.6); RBC Distribution Width SD 53.3 fl (35.1-43.9); Red Blood Count 3.41 M/mm3 (4.6-6.2); White Blood Count 4.3 K/mm3 (4.4-11.0)
[2024-10-16 12:45] LABS: Anion Gap 12 (5-15); BUN 9 mg/dL (4-19); BUN/Creat Ratio 32.5 RATIO (10-20); Calcium,Total 8.7 mg/dL (7.6-11.0); Carbon Dioxide 27.1 mmol/L (21.0-32.0); Chloride 99 mmol/L (98-108); Glucose 87 mg/dL (70-99); Potassium 3.8 mmol/L (3.3-5.1)
== END 2024-10-22 23:59 ==
LOC: LABSPEC 11:16
PROVIDERS: PCP Family Medicine; Referring Provider Family Medicine; Visit Provider Family Medicine
DX: E87.6 Hypokalemia (principal); E29.1 Testicular hypofunction
CPT/HCPCS: 80048; 85025

== ENCOUNTER 2024-11-09 08:02 | Emergency (ER) | payer MEDICARE, MEDICAID, SELFPAY ==
[2024-11-09 08:03] VITALS: BP 143/96; PULSE 90; RESP 16; TEMP 36.9; O2SAT 97; BMI 42.0
--- NOTE | 2024-11-09 08:44 | EX.ED.DYSGE1 ---
HPI History of Present Illness Chief Complaint: General Illness Informant: family Narrative Narrative: Patient is a 44-year-old male with history of cerebral palsy, chronic respiratory failure on tracheostomy, PEG tube dependent and pneumonia presenting for tachycardia. Family states that he has day night reversal and this morning around 6 AM his heart rate was in the 130s. They gave him his normal 2 mg Ativan around 7 AM however by 8 AM he was still had a heart rate in the 120s to 130s with a called EMS. They note he received his baclofen and gabapentin at 6 AM like normal. He has not yet had his morning phenobarbital, doxazosin or Reglan. They do notes that he is otherwise been in his normal state of health. He has had normal sputum production and secretions from his lungs. Family denies any changes in O2 requirements. He has had no difficulty with his ostomy and has had normal urine output as well as stool output. No increased residuals from his PEG tube. No fevers reported. Last weekend he did have 1 episode of urinary retention but ultimately did urinate and has been fine since with normal urination. Upon arrival to the emergency room patient's heart rate normalized. No other complaints or concerns reported at this time. [facility] Medical History Hypogonadism in male Osteoporosis History of aspiration pneumonia Tachycardia Aspiration pneumonia Anxiety GERD (gastroesophageal reflux disease) Non-smoker On home oxygen therapy Pulmonary embolism Seizures Cerebral palsy Chronic respiratory failure with hypoxia Pseudomonas pneumonia Colostomy prolapse Cerebral palsy Acute dyspnea Anemia in chronic illness Upper GI bleeding (04/2020) Thrombocytopenia Pulmonary embolism on left (06/14/19) Iron deficiency anemia Obesity Tracheostomy in place Debility Chronic respiratory failure Edema Nonrheumatic mitral valve prolapse Redundant colon History of seizure disorder Home Medications ?Medication ?Instructions ?Recorded ?Last Taken ?Type phenobarbital 20 mg/5 mL (4 mg/mL) 60 mg G-tube 0830,2100 SEIZURES 02/19/17 09/03/24 History oral elixir metoclopramide HCl 5 mg/5 mL oral 10 mg feeding tube 0830,1600,2100 09/16/18 09/03/24 History solution STOMACH Cough Assist 1 dose .Route .MEDSUPPLY assist in 12/25/18 09/03/24 History clearing secretions gabapentin 250 mg/5 mL oral 500 mg G-tube 0000,0600,1200,1800 09/26/19 09/03/24 History solution SEIZURES albuterol sulfate 2.5 mg/3 mL 2.5 mg inhalation Q4H PRN Sob &/Or 11/27/20 09/03/24 History (0.083 %) solution for nebulization Wheezing doxazosin 2 mg tablet 2 mg PO 0830 BLOOD PRESSURE 11/30/21 09/03/24 History cholecalciferol (vitamin D3) 10 15 mcg feeding tube 0830 SUPPLEMENT 03/24/22 09/03/24 History mcg/mL (400 unit/mL) oral drops acetaminophen 650 mg/20.3 mL oral 650 mg feeding tube 10/24/22 01/04/24 History suspension 0000,0600,1200,1800 PRN PAIN aluminum-mag hydroxide-simethicone 5 ml PO 0000,0600,1200,1800 PRN 10/24/22 09/03/24 History 200 mg-200 mg-20 mg/5 mL oral susp ANTACID baclofen 20 mg tablet 20 mg feeding tube Q6H MUSCLE 12/10/22 09/03/24 History SPASMS ondansetron 4 mg disintegrating 4 mg PO Q8H PRN NAUSEA/VOMITING 12/13/22 Unknown Rx tablet #30 tabs esomeprazole magnesium 40 mg 40 mg G-tube BID ACID REFLUX 03/23/23 09/03/24 History granules delayed release for susp (Nexium Packet) ipratropium 0.5 mg-albuterol 3 mg 3 ml inhalation Q4H PRN SOB &/OR 03/23/23 09/03/24 History (2.5 mg base)/3 mL nebulization WHEEZING soln cetirizine 1 mg/mL oral solution 10 mg (10 mL) feeding tube 1600 09/30/23 09/03/24 Rx ALLERGIES #480 mL lorazepam 2 mg/mL oral concentrate 2 mg feeding tube DAILY PRN 01/04/24 01/03/24 History (Lorazepam Intensol) agitation food supplemt, lactose-reduced 1,000 ml PO QDAY 04/04/24 09/03/24 History 0.04 gram-1.05 kcal/mL oral liquid (Ensure Original) guaifenesin 200 mg/5 mL oral liquid 2 mg feeding tube 0830 04/04/24 09/03/24 History COUGH/CONGESTION testosterone (AndroGel) 1 pump topical QDAY #75 grams 07/24/24 09/02/24 Rx plecanatide 3 mg tablet 3 mg G-tube 0830 BOWELS #90 tabs 09/12/24 Unknown Rx oxygen concentrator #1 ea 09/29/24 Unknown Rx montelukast 4 mg oral granules in 4 mg PO DAILY ASTHMA #90 ea 10/18/24 Unknown Rx packet (Singulair) Allergy/AdvReac Type Severity Reaction Status Date / Time chlorhexidine Allergy Rash Verified 06/15/24 13:51 cisapride monohydrate (From Allergy Rash Verified 06/15/24 13:51 Propulsid) house dust Allergy NEEDS Verified 06/15/24 13:51 FOLLOW-UP metronidazole (From Flagyl) Allergy Rash Verified 06/15/24 13:51 codeine AdvReac hallucinati Verified 06/15/24 13:51 ons morphine AdvReac Hallucinati Verified 06/15/24 13:51 ons Family History Mother Hepatitis C Hypertension HIV disease CVA (cerebral vascular accident) Liver disease Father H/O heart artery stent CAD (coronary artery disease) Atrial fibrillation Hypertension Esophageal cancer Grandmother Asthma Diverticulitis Diabetes Myocardial infarction Heart disease Surgical History History of eye surgery Heel cord lengthening History of soft tissue release History of open reduction and internal fixation (ORIF) procedure History of gastrostomy tube placement Status post insertion of intrathecal baclofen pump History of colostomy Colostomy in place Social History household members: family housing: house current occupational status: disabled Smoking Status: Never smoker alcohol intake: never substance use type: does not use caffeine: No ROS ROS ED ROS Narrative Mother provides a limited review of systems. Patient able to contribute due to baseline mental status. Review of Systems ROS Unobtainable: due to mental status Constitutional Constitutional ED: Denies fever(s) Cardiovascular Cardiovascular: Reports racing heartbeat Respiratory/Chest Respiratory/Chest: Denies cough or dyspnea Gastrointestinal Gastrointestinal: Denies diarrhea or vomiting Genitourinary Genitourinary ED: Denies hematuria or urinary frequency Integumentary Denies rash EXAM Physical Exam Const Vital Signs: 11/09/24 08:03 11/09/24 08:08 11/09/24 10:03 Temperature 98.5 F Temperature Source Axillary Pulse Rate 90 78 Respiratory Rate 16 16 Respiratory Pattern Normal Blood Pressure 143/96 H 143/90 H Blood Pressure Mean 111 107 Pulse Ox 97 95 Oxygen Delivery Method Mechanical Ventilator Room Air Oxygen Flow Rate (L/min) 5 Constitutional Narrative: Chronically ill-appearing, in his normal state of health. HEENT Reports moist mucous membranes HEENT Narrative: Protruding tongue?chronic for patient Eyes PERRL Neck supple Neck Narrative: Chronic tracheostomy in place, surrounding tissue is clean and dry Chest Wall inspection of chest normal and palpation of chest normal Resp clear to auscultation bilaterally Resp Narrative: Vent dependence however he is clear breath sounds throughout Auscultation: Negative for wheezes or diminished lung sounds Cardio regular rate, regular rhythm and no murmurs GI non-tender GI Narrative: Chronic feeding tube in place. Colostomy in place with chronic stomal hernia present. Stool and air in his colostomy bag. Abdomen distended but this is likely chronic Inspection: abdominal distention Auscultation: normoactive bowel sounds Palpation: soft; Negative for tender or guarding Extremity General Extremety ED: Yes edema General Extremity: edema Neuro Neuro Narrative: Atrophy associated with cerebral palsy. Patient at his neurologic baseline Sensorium / Orientation: alert Motor Exam: general weakness Skin no rashes or lesions noted and no wounds MDM MDM MDM Narrative Medical decision making narrative: Patient evaluated for tachyarrhythmia at home. Did not respond to his normal 40 medications was brought in for further evaluation. Has acquired a car Plex medical history and quite susceptible to pneumonia as well as infection. Upon arrival to ER patient's heart rate has improved. His vital signs have normalized. I will check basic labs including urinalysis, CBC and CMP/lipase. As he is on his baseline oxygen with no changes sputum production is clear breath sounds I do not think requires a chest x-ray at this time. Mother is in agreement. Workup is unremarkable. He has no leukocytosis or left shift. He has chronic anemia with a hemoglobin 9.6 which is stable for him. CMP largely normal. Lipase is normal. Urinalysis not consistent with infection. Patient continues to have stable vital signs in the emergency room. Will be discharged back home. The cause of his episode of tachycardia is not clear. It could be agitation related as family reports that he does not get along as well with his night nurse and she frequently suctions him. Patient was giving his morning Reglan and phenobarbital in the emergency room as scheduled. Lab Data Attestation: I reviewed the patient's lab results. Labs: Laboratory Results - last 24 hr 11/09/24 11/09/24 09:52 10:02 WBC 5.9 RBC 3.57 L Hgb 9.6 L Hct 30.2 L MCV 84.6 MCH 26.9 L MCHC 31.8 L RDW Std Deviation 47.3 H RDW Coeff of Emilee 15.5 H Plt Count 132 L MPV 9.4 Immature Gran % (Auto) 0.300 Neut % (Auto) 64.9 Lymph % (Auto) 23.1 [place] % (Auto) 7.6 Eos % (Auto) 3.9 Baso % (Auto) 0.2 Absolute Neuts (auto) 3.8 Absolute Lymphs (auto) 1.37 Nucleated RBC % 0 Sodium 137 Potassium 3.4 Chloride 102 Carbon Dioxide 23.1 Anion Gap 12 BUN 9 Creatinine 0.31 L Estim Creat Clear Calc 303.31 H Est GFR (MDRD) Non-Af 151 BUN/Creatinine Ratio 28.1 H Glucose 86 Calcium 7.6 Total Bilirubin < 0.15 AST 15 ALT 8 Alkaline Phosphatase 142 H Total Protein 6.9 Albumin 3.2 L Globulin 3.8 Albumin/Globulin Ratio 0.8 L Lipase 68 Urine Color Yellow Urine Clarity Clear Urine pH 6.5 Ur Specific [place] 1.010 Urine Protein 30 H Urine Glucose (UA) Normal Urine Ketones Negative Urine Occult Blood Negative Urine Nitrite Negative Urine Bilirubin Negative Urine Urobilinogen Normal Ur Leukocyte Esterase Negative Urine RBC 0 SEEN Urine WBC 0 SEEN Ur Squamous Epith Cells 0 SEEN Urine Bacteria 0 SEEN Urine Mucus 0 SEEN Discharge Plan Triage Chief Complaint: General Illness ED Provider: Mayra Shah Dx/Rx/DC Orders Clinical Impression: Tachycardia, Cerebral palsy, Iron deficiency anemia Instructions: ED Anemia, Type Not Specified (Adult) Prescriptions: No Action albuterol sulfate 2.5 mg /3 mL (0.083 %) solution for nebulization 2.5 mg inhalation Q4H PRN (Reason: Sob &/Or Wheezing) cetirizine 1 mg/mL solution 10 mg feeding tube 1600 Qty: 480 11RF guaifenesin 200 mg/5 mL liquid 2 mg feeding tube 0830 Patient Comments: mom states giving 0.5ml to help with mucus plugs at 9am Ensure Original 0.04-1.05 gram-kcal/mL liquid 1,000 ml PO QDAY Rx Instructions: continuous g-tube (DME) oxygen concentrator See Rx Instructions .Route .MEDSUPPLY Qty: 1 0RF Rx Instructions: 1 dose MEDSUPPLY; As directed to maintain oxygen saturations of 89-92% metoclopramide HCl 5 mg/5 mL solution 10 mg feeding tube 0830,1600,2100 phenobarbital 20 MG/5 ML elixir 60 mg G-tube 0830,2100 Cough Assist 1 dose .Route .MEDSUPPLY Rx Instructions: Inspiratory and Expiratory times of 20-40 seconds with a 1-2 second pause. gabapentin 250 MG/5 ML solution 500 mg G-tube 0000,0600,1200,1800 Patient Comments: PER PT HOME MED LIST: GABAPENTIN DOSING -IF ADRIAN'S HEART RATE IS LOW I DON'T ALWAYS GIVE THE WHOLE 10ML GABAPENTIN DOSE MY GUIDES ARE: PULSE <50: I MIGHT WAIT 1 HOUR FOR HIM TO BE MORE AWAKE. GIVE 4 ML PULSE IN THE 50'S: GIVE 5ML OR 6 ML PULSE IN THE 60'S: GIVE 6ML TO 7ML PULSE 69>: GIVE THE WHOLE 10ML doxazosin 2 mg tablet 2 mg GT 0830 cholecalciferol (vitamin D3) 10 mcg/mL (400 unit/mL) drops 15 mcg feeding tube 0830 alum-mag hydroxide-simeth 200-200-20 mg/5 mL suspension 5 ml PO 0000,0600,1200,1800 PRN (Reason: ANTACID) acetaminophen 650 mg/20.3 mL suspension 650 mg feeding tube 0000,0600,1200,1800 PRN (Reason: PAIN ) baclofen 20 mg tablet 20 mg feeding tube Q6H Patient Comments: gets compounded suspension from [facility]. ondansetron 4 mg tablet,disintegrating 4 mg PO Q8H PRN (Reason: NAUSEA/VOMITING) Qty: 30 0RF ipratropium-albuterol 0.5 mg-3 mg(2.5 mg base)/3 mL solution for nebulization 3 ml inhalation Q4H PRN (Reason: SOB &/OR WHEEZING) esomeprazole magnesium [Nexium Packet] [address] for susp in packet 40 mg G-tube BID lorazepam [Lorazepam Intensol] 2 mg/mL concentrate 2 mg feeding tube DAILY PRN (Reason: agitation) testosterone [AndroGel] 20.25 mg/1.25 gram (1.62 %) gel in metered-dose pump 1 pump topical QDAY Qty: 75 5RF Rx Instructions: apply 1 pump amount over max area of ONE upper arm and shoulder plecanatide 3 mg tablet 3 mg GT 0830 Qty: 90 2RF montelukast [Singulair] 4 mg granules in packet 4 mg PO DAILY Qty: 90 3RF Patient Comments: NEW RX THAT HAS NOT BEEN STARTED Primary Care Provider: Timmy Conn Referrals: Timmy Conn MD [Primary Care Provider, Family Practice] Activity Restrictions/Additional Instructions: Adrian's workup today was largely normal and reassuring. Because of his elevated heart rate prior to arrival is not clear. It could be from agitation. At this time he does not have signs of developing infection. If he has any worsening symptoms or further concerns please do not hesitate to return the emergency room. Print Language: Wolof Disposition Disposition: Home, Self Care
[2024-11-09 10:01] LABS: Hematocrit 30.2 % (40-54); Hemoglobin 9.6 g/dL (13.0-16.5); Immature Granulocytes Count 0.020 X10^3/uL (0.0-0.0); Mean Corp Hgb Conc 31.8 g/dL (32-36); Mean Corpuscular Volume 84.6 fL (80-94); Mean Platelet Vol. 9.4 fl (6.2-12.0); NRBC Flagged by Analyzer 0 % (0-5); Platelet Count 132 K/mm3 (150-450); RBC Distribution Width CV 15.5 % (11.6-14.6); RBC Distribution Width SD 47.3 fl (35.1-43.9); Red Blood Count 3.57 M/mm3 (4.6-6.2); White Blood Count 5.9 K/mm3 (4.4-11.0)
[2024-11-09 10:03] VITALS: BP 143/90; PULSE 78; RESP 16; O2SAT 95
[2024-11-09 10:07] LABS: Mucous, Urine 0 SEEN /hpf (<or=2+); Red Blood Cells-Urine 0 SEEN /hpf (0-5); Squamous Epithelial Cells - UA 0 SEEN /hpf (0-5)
[2024-11-09 10:11] LABS: Color, Urine Yellow (Yellow); Glucose, Dipstick Normal (Normal); Ketone-Dipstick Negative (Negative); Leukocyte Esterase-Dipstick Negative /ul (Negative); Nitrite-Dipstick Negative (Negative); Occult Blood-Urine Negative /ul (Negative); Protein-Dipstick 30 mg/dl (Negative); Specific Gravity, Urine 1.010 (1.002-1.030); Urine Bilirubin Dipstick Negative (Negative)
[2024-11-09 10:23] LABS: AST(SGOT) 15 U/L (<=37); Alanine Aminotransfer ALT/SGPT 8 U/L (<=46); Albumin, Serum 3.2 g/dL (3.5-5.0); Alkaline Phosphatase 142 U/L (40-129); Anion Gap 12 (5-15); BUN 9 mg/dL (4-19); BUN/Creat Ratio 28.1 RATIO (10-20); Calcium,Total 7.6 mg/dL (7.6-11.0); Carbon Dioxide 23.1 mmol/L (21.0-32.0); Chloride 102 mmol/L (98-108); Estimated Creatinine Clearance 303.31 ml/min (50-250); Globulin 3.8 g/dL (2.2-4.2); Glucose 86 mg/dL (70-99); Lipase 68 U/L (13-75); Potassium 3.4 mmol/L (3.3-5.1)
[2024-11-09 11:44] VITALS: BP 143/90; PULSE 78; RESP 16; TEMP 36.9; O2SAT 95
[2024-11-09 12:00] VITALS: BP 133/87; PULSE 74; RESP 10; O2SAT 98
--- NOTE | 2024-11-09 12:27 | PCA ---
MATT FROM [facility] CALLED UPDATING THIS FAMILY LAWYER THAT THE CREW PICKING UP PT. IS ROUGHLY 30 MINUTES AWAY. PUTTING TH ETA TO BE ABOUT 1300
== END 2024-11-09 13:33 | disposition home or self-care (01) ==
PROVIDERS: Emergency Provider Emergency Medicine; PCP Family Medicine; Visit Provider Emergency Medicine
DX: R00.0 Tachycardia, unspecified (principal); Z93.0 Tracheostomy status; Z93.3 Colostomy status; Z93.1 Gastrostomy status; G80.9 Cerebral palsy, unspecified; Z79.899 Other long term (current) drug therapy; D50.9 Iron deficiency anemia, unspecified
CPT/HCPCS: 80053; 81001; 83690; 85025; 87086; 99285; A4216

== ENCOUNTER 2024-12-04 10:34 | Outpatient (RCR) | payer MEDICARE, MEDICAID, SELFPAY ==
[2024-12-04 10:58] LABS: Hematocrit 32.4 % (40-54); Hemoglobin 10.1 g/dL (13.0-16.5); Immature Granulocytes Count 0.010 X10^3/uL (0.0-0.0); Mean Corp Hgb Conc 31.2 g/dL (32-36); Mean Corpuscular Volume 83.7 fL (80-94); Mean Platelet Vol. 10.4 fl (6.2-12.0); NRBC Flagged by Analyzer 0 % (0-5); Platelet Count 158 K/mm3 (150-450); RBC Distribution Width CV 16.0 % (11.6-14.6); RBC Distribution Width SD 48.4 fl (35.1-43.9); Red Blood Count 3.87 M/mm3 (4.6-6.2); White Blood Count 4.3 K/mm3 (4.4-11.0)
[2024-12-04 11:27] LABS: Anion Gap 8 (5-15); BUN 9 mg/dL (4-19); BUN/Creat Ratio 30.7 RATIO (10-20); Calcium,Total 8.5 mg/dL (7.6-11.0); Carbon Dioxide 29.6 mmol/L (21.0-32.0); Chloride 101 mmol/L (98-108); Glucose 98 mg/dL (70-99); Potassium 3.9 mmol/L (3.3-5.1)
[2024-12-08 12:09] LABS: Testosterone, % Free 3.62 % (1.50-4.20); Testosterone, Free 22.08 ng/dL (5.00-21.00)
== END 2024-12-22 23:59 ==
LOC: LABSPEC 10:34
PROVIDERS: PCP Family Medicine; Referring Provider Internal Medicine Endocrinology, Diabetes & Metabolism; Visit Provider Family Medicine
DX: E29.1 Testicular hypofunction (principal); E87.6 Hypokalemia
CPT/HCPCS: 80048; 84402; 84403; 85025

== ENCOUNTER 2024-12-20 18:38 | Inpatient (IN) | payer MEDICARE, MEDICAID, SELFPAY ==
[2024-12-20] VITALS (14 sets, daily range): BP systolic 105–134; BP diastolic 75–98; PULSE 84–120; RESP 10–21; TEMP 36.1–36.6; O2SAT 93–100; BMI 37.6; BMI 36.6
--- NOTE | 2024-12-20 18:41 | EKG12_ITS ---
Test Reason : NAUSEA/VOMITING
--- NOTE | 2024-12-20 18:44 | EX.ED.DYSGE1 ---
HPI History of Present Illness Chief Complaint: Shortness of Breath Detail of Chief Complaint: Trouble breathing after vomiting Informant: EMS Onset/Context/Timing Onset: Today Context: Sudden Onset Timing: Continuous Quality: Vomiting, paramedics concern for upper GI bleed and aspiration Location: Respiratory and GI Current Severity: Moderate Maximum Severity: Severe Worsened by: Aspiration and vent dependent Relieved by: Nothing Associated Symptoms Associated Symptoms: Nothing/unable Narrative Narrative: Patient is a 44-year-old male who has history of cerebral palsy and chronic respiratory failure on ventilator who presents because of intractable vomiting and aspiration with difficulty breathing. Emesis appears to be coffee-ground/blood. Paramedics states they suction what appeared to be gastric contents and blood from his tracheostomy. Patient is nonverbal. He is dependent on total care. Prior similar symptoms: Yes Recent Illness/Hospitalization: Yes [facility] Medical History Hypogonadism in male Osteoporosis History of aspiration pneumonia Tachycardia Aspiration pneumonia Anxiety GERD (gastroesophageal reflux disease) Non-smoker On home oxygen therapy Pulmonary embolism Seizures Cerebral palsy Chronic respiratory failure with hypoxia Pseudomonas pneumonia Colostomy prolapse Cerebral palsy Acute dyspnea Anemia in chronic illness Upper GI bleeding (04/2020) Thrombocytopenia Pulmonary embolism on left (06/14/19) Iron deficiency anemia Obesity Tracheostomy in place Debility Chronic respiratory failure Edema Nonrheumatic mitral valve prolapse Redundant colon History of seizure disorder Home Medications ?Medication ?Instructions ?Recorded ?Last Taken ?Type phenobarbital 20 mg/5 mL (4 mg/mL) 60 mg G-tube 0830,2100 SEIZURES 02/19/17 09/03/24 History oral elixir metoclopramide HCl 5 mg/5 mL oral 10 mg feeding tube 0830,1600,2100 09/16/18 09/03/24 History solution STOMACH Cough Assist 1 dose .Route .MEDSUPPLY assist in 12/25/18 09/03/24 History clearing secretions gabapentin 250 mg/5 mL oral 500 mg G-tube 0000,0600,1200,1800 09/26/19 09/03/24 History solution SEIZURES albuterol sulfate 2.5 mg/3 mL 2.5 mg inhalation Q4H PRN Sob &/Or 11/27/20 09/03/24 History (0.083 %) solution for nebulization Wheezing doxazosin 2 mg tablet 2 mg PO 0830 BLOOD PRESSURE 11/30/21 09/03/24 History cholecalciferol (vitamin D3) 10 15 mcg feeding tube 0830 SUPPLEMENT 03/24/22 09/03/24 History mcg/mL (400 unit/mL) oral drops acetaminophen 650 mg/20.3 mL oral 650 mg feeding tube 10/24/22 01/04/24 History suspension 0000,0600,1200,1800 PRN PAIN aluminum-mag hydroxide-simethicone 5 ml PO 0000,0600,1200,1800 PRN 10/24/22 09/03/24 History 200 mg-200 mg-20 mg/5 mL oral susp ANTACID baclofen 20 mg tablet 20 mg feeding tube Q6H MUSCLE 12/10/22 09/03/24 History SPASMS ondansetron 4 mg disintegrating 4 mg PO Q8H PRN NAUSEA/VOMITING 12/13/22 Unknown Rx tablet #30 tabs esomeprazole magnesium 40 mg 40 mg G-tube BID ACID REFLUX 03/23/23 09/03/24 History granules delayed release for susp (Nexium Packet) ipratropium 0.5 mg-albuterol 3 mg 3 ml inhalation Q4H PRN SOB &/OR 03/23/23 09/03/24 History (2.5 mg base)/3 mL nebulization WHEEZING soln cetirizine 1 mg/mL oral solution 10 mg (10 mL) feeding tube 1600 09/30/23 09/03/24 Rx ALLERGIES #480 mL lorazepam 2 mg/mL oral concentrate 2 mg feeding tube DAILY PRN 01/04/24 01/03/24 History (Lorazepam Intensol) agitation food supplemt, lactose-reduced 1,000 ml PO QDAY 04/04/24 09/03/24 History 0.04 gram-1.05 kcal/mL oral liquid (Ensure Original) guaifenesin 200 mg/5 mL oral liquid 2 mg feeding tube 0830 04/04/24 09/03/24 History COUGH/CONGESTION plecanatide 3 mg tablet 3 mg G-tube 0830 BOWELS #90 tabs 09/12/24 Unknown Rx oxygen concentrator #1 ea 09/29/24 Unknown Rx montelukast 4 mg oral granules in 4 mg PO DAILY ASTHMA #90 ea 10/18/24 Unknown Rx packet (Singulair) testosterone (AndroGel) 1 pump topical .every other day 12/08/24 Unknown Rx #75 grams Allergy/AdvReac Type Severity Reaction Status Date / Time chlorhexidine Allergy Rash Verified 06/15/24 13:51 cisapride monohydrate (From Allergy Rash Verified 06/15/24 13:51 Propulsid) house dust Allergy NEEDS Verified 06/15/24 13:51 FOLLOW-UP metronidazole (From Flagyl) Allergy Rash Verified 06/15/24 13:51 codeine AdvReac hallucinati Verified 06/15/24 13:51 ons morphine AdvReac Hallucinati Verified 06/15/24 13:51 ons Family History Mother Hepatitis C Hypertension HIV disease CVA (cerebral vascular accident) Liver disease Father H/O heart artery stent CAD (coronary artery disease) Atrial fibrillation Hypertension Esophageal cancer Grandmother Asthma Diverticulitis Diabetes Myocardial infarction Heart disease Surgical History History of eye surgery Heel cord lengthening History of soft tissue release History of open reduction and internal fixation (ORIF) procedure History of gastrostomy tube placement Status post insertion of intrathecal baclofen pump History of colostomy Colostomy in place Social History household members: family housing: house current occupational status: disabled Smoking Status: Never smoker alcohol intake: never substance use type: does not use caffeine: No ROS ROS ED Review of Systems ROS Unobtainable: other Details: Nonverbal, vent dependent EXAM Physical Exam Const Vital Signs: 12/20/24 18:38 12/20/24 18:42 12/20/24 18:49 Temperature 97.8 F Temperature Source Axillary Pulse Rate 120 H Respiratory Rate 18 Respiratory Effort Short of Breath Blood Pressure 134/89 H Blood Pressure Mean 104 Pulse Ox 97 Oxygen Delivery Method Trach Collar Trach Collar Trach Collar 12/20/24 19:44 12/20/24 20:00 Temperature 97.8 F 97.8 F Temperature Source Temporal Axillary Pulse Rate 116 H 119 H Respiratory Rate 12 17 Respiratory Effort Blood Pressure 131/93 H 133/98 H Blood Pressure Mean 105 109 Pulse Ox 96 93 Oxygen Delivery Method Mechanical Ventilator Mechanical Ventilator Positive well nourished and well developed; Negative for unkempt General Appearance ED: well developed and pallor; Negative for unkempt, cyanotic, diaphoretic or NAD HEENT Reports moist mucous membranes HEENT Narrative: Patient's tongue is protruding from his mouth. Head is atraumatic normocephalic. Ears normal. Nares patent. Patient has hematemesis. Eyes PERRL and EOMs intact bilaterally General Eye ED: Negative for pale conjunctiva or scleral icterus Neck no lymphadenopathy Neck Narrative: Tracheostomy noted. Chest Wall inspection of chest normal and palpation of chest normal Resp No normal respiratory effort and No clear to auscultation bilaterally Resp Narrative: High-pitched wheezing. Decreased air movement. Auscultation: wheezes expiratory wheezes and throughout Cardio regular rate, regular rhythm, S1 normal heart sound, S2 normal heart sound and no murmurs GI GI Narrative: Abdomen is firm. Patient has a colostomy/ileostomy left side. There is stool noted. It is dark brown in color. Extremity Negative for normal to inspection Extremity Narrative: Edema of all extremities there is no acral cyanosis noted. Neuro Neuro Narrative: Patient is lying on the examination cot. There is no verbal response. There is no movement with tactile stimulus. Psych Appearance: Negative for unkempt Skin General Skin Exam: pallor MDM MDM MDM Narrative Medical decision making narrative: With hematemesis concern patient may have a bleeding ulcer or Carli-Styles tear. Will treat with IV Protonix. Patient clinically aspirated. Will obtain chest x-ray appropriate blood work. He will require admission. Will review his records determine if he is allergic to penicillin. Treatment for vent dependent patient without penicillin allergy is Zosyn. Since patient is an upper GI bleed will start on Protonix continuous infusion. Lab Data Attestation: I reviewed the patient's lab results. Lab results narrative: White count is 6.5. Patient has mild anemia with H&H 10.9 and 35.3. Differential is unremarkable. Basic metabolic panel is unremarkable. BUN to creatinine ratio slight elevated 21-1. Glucose is 103. CO2 anion gap are normal. Alkaline phosphatase slightly elevated. Lactate elevated 2.3. This could be due to the fact that he was hypoxic. Labs: Laboratory Results - last 24 hr 12/20/24 18:44 WBC 6.5 RBC 4.21 L Hgb 10.9 L Hct 35.3 L MCV 83.8 MCH 25.9 L MCHC 30.9 L RDW Std Deviation 51.2 H RDW Coeff of Em[place] 17.1 H Plt Count 165 MPV 9.8 Immature Gran % (Auto) 0.500 Neut % (Auto) 55.6 Lymph % (Auto) 34.3 [place] % (Auto) 6.7 Eos % (Auto) 2.6 Baso % (Auto) 0.3 Absolute Neuts (auto) 3.6 Absolute Lymphs (auto) 2.24 Nucleated RBC % 0 Sodium 139 Potassium 3.7 Chloride 99 Carbon Dioxide 25.9 Anion Gap 14 BUN 7 Creatinine 0.35 L Estim Creat Clear Calc 252.70 H Est GFR (MDRD) Non-Af 145 BUN/Creatinine Ratio 21.3 H Glucose 103 H Lactic Acid 2.3 H* Calcium 9.0 Total Bilirubin 0.23 AST 19 ALT 11 Alkaline Phosphatase 179 H Total Protein 8.5 H Albumin 3.6 Globulin 4.9 H Albumin/Globulin Ratio 0.7 L Blood Type A POSITIVE Antibody Screen NEGATIVE Radiography Chest X-Ray - ED: 1 View (Single view KUB/chest reveals OG to be in proper position. Patient gastric contents are consistent with upper GI bleed. Suboptimal examination of the chest due to rotation and limit inspiratory volume. There is no obvious infiltrate. There is no effusion. There is no [place] pneumothorax tracheost) EKG Initial EKG: Attestation: I personally reviewed and interpreted this EKG as follows: Interpretation: Sinus Rhythm (Rate is 92. IA 106 ms. Cures duration is 102 ms QT is 386. [place] is normal. Patient has an RR prime in V1. There is nonspecific ST-T wave changes noted. This was compared to EKG obtained January 04, 2024. The EKG changes were noted at that time as well.) Prior: Unchanged (EKG dated January 04, 2024) Management Discussion w/another healthcare provider: Hospitalist (Spoke with Dr. Tania Randle. Plan is admit ICU. She will contact GI.) Critical Care Time Critical Care Time: Yes Critical care time (excluding procedures): 30-74 minutes (32), Including time spent: (History, physical, documentation, review of prior records), Discussing w/Patient &/or Family/Dairy Manufacturing Technologist (Mother was in attendance), Discussing w/Consultants and Arranging Admission or Transfer Discharge Plan Dx/Rx/DC Orders Clinical Impression: Acute aspiration pneumonitis, Acute upper gastrointestinal bleeding, Tracheostomy dependent, Cerebral palsy, Sinus tachycardia seen on armed guard, Acidosis, lactic, Iron deficiency anemia, Chronic respiratory failure Disposition Disposition: Acute Care Hospital [facility]
[2024-12-20 19:05] LABS: Hematocrit 35.3 % (40-54); Hemoglobin 10.9 g/dL (13.0-16.5); Immature Granulocytes Count 0.030 X10^3/uL (0.0-0.0); Mean Corp Hgb Conc 30.9 g/dL (32-36); Mean Corpuscular Volume 83.8 fL (80-94); Mean Platelet Vol. 9.8 fl (6.2-12.0); NRBC Flagged by Analyzer 0 % (0-5); Platelet Count 165 K/mm3 (150-450); RBC Distribution Width CV 17.1 % (11.6-14.6); RBC Distribution Width SD 51.2 fl (35.1-43.9); Red Blood Count 4.21 M/mm3 (4.6-6.2); White Blood Count 6.5 K/mm3 (4.4-11.0)
[2024-12-20] MEDS: Pantoprazole Sodium 80 MG in 0.9% Normal Saline (50mL Bag) 15 ML 420 MG IV BOLUS (19:18)
[2024-12-20] MEDS: Albuterol 2.5 MG/3 ML VIAL.NEB. INHALATION ×3 (19:22→19:46)
[2024-12-20 19:36] LABS: AST(SGOT) 19 U/L (<=37); Alanine Aminotransfer ALT/SGPT 11 U/L (<=46); Albumin, Serum 3.6 g/dL (3.5-5.0); Alkaline Phosphatase 179 U/L (40-129); Anion Gap 14 (5-15); BUN 7 mg/dL (4-19); BUN/Creat Ratio 21.3 RATIO (10-20); Calcium,Total 9.0 mg/dL (7.6-11.0); Carbon Dioxide 25.9 mmol/L (21.0-32.0); Chloride 99 mmol/L (98-108); Estimated Creatinine Clearance 252.70 ml/min (50-250); Globulin 4.9 g/dL (2.2-4.2); Glucose 103 mg/dL (70-99); Potassium 3.7 mmol/L (3.3-5.1)
[2024-12-20] MEDS: Piperacil/Tazobactam 4.5 GM in 0.9% Normal Saline (100mL MB+) 100 ML IV (19:45)
--- NOTE | 2024-12-20 19:50 | RAD_ITS ---
PROCEDURE: RAD/Chest 1 View (Portable)
--- NOTE | 2024-12-20 20:24 | PCM.HP.STD ---
HPI - General General Date of Service: 12/20/24 Chief Complaint: Respiratory distress, N/V, concern aspiration, dark emesis. HPI Narrative The patient is a 44 y/o M w/ PMHx: Chronic anemia, Chronic asthma w/ allergic rhinitis, Chronic Hypoxic and Hypercarbic Respiratory Failure on Chronic Ventilation following w/ Dr. Monsalve, Cerebral Palsy with quadriplegia w/ hx of previous baclofen pump, colostomy, chronic catheter, frequent difficulties with aspiration, G-J tube in place, Seizure disorder, Hx PE eventually transition to Lovenox with associated significant thrombocytopenia following with hematology prior who presents to [facility] ED on 12/20/24 with history per family of dyspnea specifically after an emesis event noted to be extremely dark with concern for aspiration following with notable dark black emesis event prompting EMS call who noted that they did suction gastric contents from his tracheostomy of note as well as some potential blood but uncertain. Workup in the ED included T97.8, heart rate 120, BP 1 3489, respiratory rate 18, 97% on trach collar reportedly at home settings, CBC with WBC 6.5, hemoglobin 10.9, MCV 83.8, platelet 165 without marked shift, CMP with glucose 103, alk phos 139 otherwise unremarkable, lactic acid 2.3, type and screen performed per ED, ABG pending upon request evaluation of patient, chest x-ray preliminary with suboptimal evaluation secondary rotation and limited inspiratory volume with no obvious infiltrate or effusion, EKG with sinus rhythm with nonspecific ST-T wave changes similar to previous EKG. In the ED patient ministered albuterol and DuoNeb therapy as well as oxime calzone spray for NG tube placement, Ativan 0.5 mg IV x 1, Protonix 80 mg IV bolus x 1 and Zosyn 4.5 mg IV x 1. In the ED NG tube placed. [facility] Medical History Hypogonadism in male Osteoporosis History of aspiration pneumonia Tachycardia Aspiration pneumonia Anxiety GERD (gastroesophageal reflux disease) Non-smoker On home oxygen therapy Pulmonary embolism Seizures Cerebral palsy Chronic respiratory failure with hypoxia Pseudomonas pneumonia Colostomy prolapse Cerebral palsy Acute dyspnea Anemia in chronic illness Upper GI bleeding (04/2020) Thrombocytopenia Pulmonary embolism on left (06/14/19) Iron deficiency anemia Obesity Tracheostomy in place Debility Chronic respiratory failure Edema Nonrheumatic mitral valve prolapse Redundant colon History of seizure disorder Home Medications ?Medication ?Instructions ?Recorded ?Last Taken ?Type phenobarbital 20 mg/5 mL (4 mg/mL) 60 mg G-tube 0830,2100 SEIZURES 02/19/17 09/03/24 History oral elixir metoclopramide HCl 5 mg/5 mL oral 10 mg feeding tube 0830,1600,2100 09/16/18 09/03/24 History solution STOMACH Cough Assist 1 dose .Route .MEDSUPPLY assist in 12/25/18 09/03/24 History clearing secretions gabapentin 250 mg/5 mL oral 500 mg G-tube 0000,0600,1200,1800 09/26/19 09/03/24 History solution SEIZURES albuterol sulfate 2.5 mg/3 mL 2.5 mg inhalation Q4H PRN Sob &/Or 11/27/20 09/03/24 History (0.083 %) solution for nebulization Wheezing doxazosin 2 mg tablet 2 mg PO 0830 BLOOD PRESSURE 11/30/21 09/03/24 History cholecalciferol (vitamin D3) 10 15 mcg feeding tube 0830 SUPPLEMENT 03/24/22 09/03/24 History mcg/mL (400 unit/mL) oral drops acetaminophen 650 mg/20.3 mL oral 650 mg feeding tube 10/24/22 01/04/24 History suspension 0000,0600,1200,1800 PRN PAIN aluminum-mag hydroxide-simethicone 5 ml PO 0000,0600,1200,1800 PRN 10/24/22 09/03/24 History 200 mg-200 mg-20 mg/5 mL oral susp ANTACID baclofen 20 mg tablet 20 mg feeding tube Q6H MUSCLE 12/10/22 09/03/24 History SPASMS ondansetron 4 mg disintegrating 4 mg PO Q8H PRN NAUSEA/VOMITING 12/13/22 Unknown Rx tablet #30 tabs esomeprazole magnesium 40 mg 40 mg G-tube BID ACID REFLUX 03/23/23 09/03/24 History granules delayed release for susp (Nexium Packet) ipratropium 0.5 mg-albuterol 3 mg 3 ml inhalation Q4H PRN SOB &/OR 03/23/23 09/03/24 History (2.5 mg base)/3 mL nebulization WHEEZING soln cetirizine 1 mg/mL oral solution 10 mg (10 mL) feeding tube 1600 09/30/23 09/03/24 Rx ALLERGIES #480 mL lorazepam 2 mg/mL oral concentrate 2 mg feeding tube DAILY PRN 01/04/24 01/03/24 History (Lorazepam Intensol) agitation food supplemt, lactose-reduced 1,000 ml PO QDAY 04/04/24 09/03/24 History 0.04 gram-1.05 kcal/mL oral liquid (Ensure Original) guaifenesin 200 mg/5 mL oral liquid 2 mg feeding tube 0830 04/04/24 09/03/24 History COUGH/CONGESTION oxygen concentrator #1 ea 09/29/24 Unknown Rx montelukast 4 mg oral granules in 4 mg PO DAILY ASTHMA #90 ea 10/18/24 Unknown Rx packet (Singulair) plecanatide 3 mg tablet 3 mg G-tube QODAY BOWELS 12/20/24 Unknown History testosterone (AndroGel) 1 pump topical QODAY 12/20/24 Unknown History Allergy/AdvReac Type Severity Reaction Status Date / Time chlorhexidine Allergy Rash Verified 06/15/24 13:51 cisapride monohydrate (From Allergy Rash Verified 06/15/24 13:51 Propulsid) house dust Allergy NEEDS Verified 06/15/24 13:51 FOLLOW-UP metronidazole (From Flagyl) Allergy Rash Verified 06/15/24 13:51 codeine AdvReac hallucinati Verified 06/15/24 13:51 ons morphine AdvReac Hallucinati Verified 06/15/24 13:51 ons Family History Mother Hepatitis C Hypertension HIV disease CVA (cerebral vascular accident) Liver disease Father H/O heart artery stent CAD (coronary artery disease) Atrial fibrillation Hypertension Esophageal cancer Grandmother Asthma Diverticulitis Diabetes Myocardial infarction Heart disease Surgical History History of eye surgery Heel cord lengthening History of soft tissue release History of open reduction and internal fixation (ORIF) procedure History of gastrostomy tube placement Status post insertion of intrathecal baclofen pump History of colostomy Colostomy in place Social History household members: family housing: house current occupational status: disabled Smoking Status: Never smoker alcohol intake: never substance use type: does not use caffeine: No ROS Review of Systems ROS Unobtainable: due to mental condition Vital Signs Vital Signs Vital Signs: 12/20/24 18:38 12/20/24 18:42 12/20/24 18:49 Temperature 97.8 F Temperature Source Axillary Pulse Rate 120 H Respiratory Rate 18 Respiratory Effort Short of Breath Blood Pressure 134/89 H Blood Pressure Mean 104 Pulse Ox 97 Oxygen Delivery Method Trach Collar Trach Collar Trach Collar 12/20/24 19:44 12/20/24 20:00 Temperature 97.8 F 97.8 F Temperature Source Temporal Axillary Pulse Rate 116 H 119 H Respiratory Rate 12 17 Respiratory Effort Blood Pressure 131/93 H 133/98 H Blood Pressure Mean 105 109 Pulse Ox 96 93 Oxygen Delivery Method Mechanical Ventilator Mechanical Ventilator Weight Weight: 192 lb 12.8 oz Body Mass Index (BMI) 37.6 Physical Exam Narrative Physical Examination: General: awake, alert, nonverbal, seated upright in his chair, no acute distress, calm. Skin: normal color, turgor, no icterus, cyanosis except occasional staged abrasion. HEENT: AT/NC, EOMI, PERRLA, moderately dry MM with protruding tongue, difficult to discern carotid bruit and JVD given very thickened neck, trach in plac, NG in place with dark appearing material in the canister. Lungs: Diminished breath sounds, > bases, no obvious distress, notable occasional expiratory wheeze/rhonchorous, no evidence of any distress, tracheostomy in place. Heart: Mildly tachycardic with regular rhythm; no gallop, rub audible. Abdomen: soft, obese, no obvious TTP/grimacing with palpation, chronically distended similar to prior baseline, ostomy in place currently with no output in the bag, normal BS, no appreciated HSM. Extremities: no cyanosis, chronic BL upper extremity and BL LE chronic stable edema nonpitting, quadriplegic status. Neurological: Patient awake, alert, nonverbal, unable to answer any orientation questions, severe MRDD with cerebral palsy with quadriplegia, calm, cognitive function baseline intact, pupils equally reactive to light and accommodation, cranial nerves difficult to assess given MRDD quadriplegic status, strength severely globally decreased. Psychiatric: affect appears calm, nonverbal, no acute evidence of depressive or anxiety but does have underlying history. Results Lab / Micro Data 12/20/24 18:44 12/20/24 18:44 Labs: Laboratory Results - last 24 hr 12/20/24 18:44: WBC 6.5, RBC 4.21 L, Hgb 10.9 L, Hct 35.3 L, MCV 83.8, MCH 25.9 L, MCHC 30.9 L, RDW Std Deviation 51.2 H, RDW Coeff of Emilee 17.1 H, Plt Count 165, MPV 9.8, Immature Gran % (Auto) 0.500, Neut % (Auto) 55.6, Lymph % (Auto) 34.3, [place] % (Auto) 6.7, Eos % (Auto) 2.6, Baso % (Auto) 0.3, Absolute Neuts (auto) 3.6, Absolute Lymphs (auto) 2.24, Nucleated RBC % 0, Sodium 139, Potassium 3.7, Chloride 99, Carbon Dioxide 25.9, Anion Gap 14, BUN 7, Creatinine 0.35 L, Estim Creat Clear Calc 252.70 H, Est GFR (MDRD) Non-Af 145, BUN/Creatinine Ratio 21.3 H, Glucose 103 H, Lactic Acid 2.3 H*, Calcium 9.0, Total Bilirubin 0.23, AST 19, ALT 11, Alkaline Phosphatase 179 H, Total Protein 8.5 H, Albumin 3.6, Globulin 4.9 H, Albumin/Globulin Ratio 0.7 L, Blood Type A POSITIVE, Antibody Screen NEGATIVE Assessment & Plan Assessment/Plan (1) Respiratory failure: (2) Aspiration into airway: (3) GI bleed: PLAN: Plan The patient is a 44 y/o M w/ PMHx: Chronic anemia, Chronic asthma w/ allergic rhinitis, Chronic Hypoxic and Hypercarbic Respiratory Failure on Chronic Ventilation following w/ Dr. Monsalve, Cerebral Palsy with quadriplegia w/ hx of previous baclofen pump, colostomy, chronic catheter, frequent difficulties with aspiration, G-J tube in place, Seizure disorder, Hx PE eventually transition to Lovenox with associated significant thrombocytopenia following with hematology prior who presents to [facility] ED on 12/20/24 with history per family of dyspnea specifically after an emesis event noted to be extremely dark with concern for aspiration following with notable dark black emesis event prompting EMS call who noted that they did suction gastric contents from his tracheostomy of note as well as some potential blood but uncertain. #1. Acute on Chronic hypoxic and hypercarbic respiratory failure secondary to Aspiration Event with concern for Aspiration pneumonitis/high risk for pneumonia development with concern for Acute GI bleed with mild lactic acidosis possibly secondary to hypoxemia given aspiration event complicated by underlying significant chronic spastic quadriplegia with cerebral palsy, s/p tracheostomy, ventilator dependent with chronic dysphagia status post PEG tube placement: Will admit to the ICU, will consult pipe coverer helper per protocol, will consult GI, will continue to adjust IV fluids, will continue NG tube to low intermittent suction, will maintain on IV Protonix drip pending further evaluation for GI bleed, will attempt to guaiac gastric contents as well as stool, will continue to cycle H&Hs, type and screen already initiated in the ED, will maintain on IV Zosyn given concerns for aspiration with plan repeat chest x-ray in AM, will maintain on ATC DuoNeb therapy cautiously given propensity for chronic tachycardia, will have as needed albuterol if necessary, will continue routine ostomy care, barrier cream as needed, maintain on aspiration precautions, hold all home tube feeds, continue aggressive pulmonary toileting regimen in addition to pulmonary recommended Mucinex, Singulair, Zyrtec as well as DuoNeb therapies with attempt maintain oxygen saturation 93% or higher, will continue patient home baclofen as well as Ativan as needed regimen in addition to metoclopramide, will continue elevated settings however once able will wean to home vent settings, continue chronic Augustin. #2. Chronic normocytic anemia with history of previous GI bleeds: Admission hemoglobin 10.9, MCV 83.8, baseline hemoglobin 9-10, stable, maintain on PPI, continue evaluation given some concern for possible GI bleeding component however confounded by recent ingestion of the significant mount of black licorice. #3. Seizure disorder: Will continue patient phenobarbital and gabapentin regimen. #4. History of VTE: Patient with previous history of DVT, PE however had significant issues with thrombocytopenia eventually transitioned to Lovenox and completed therapy, will maintain on SCDs given concerns as noted above. #5. Chronic asthma with allergic rhinitis: Will continue oxygen supplementation for chronic regimen as noted above, will maintain on home inhaler regimen with as needed breakthrough albuterol if necessary, will continue patient's montelukast, cetirizine home regimen. #6. GERD: Will maintain on patient PPI. #7. Hypotestosteronism, hypogonadism: Will continue patient home testosterone topical application, encourage continued follow-up with endocrinology as previously arranged with most recent visit noted 10/19/[address] Jc. #8. DVT prophylaxis: SCDs, defer chemoprophylaxis given concerns as noted above. #9. CODE STATUS: Full code. Charges/Coding Visit Charges Inpatient E&M: 62242 Init Hosp L3
[2024-12-20] MEDS: Pantoprazole Sodium 80 MG in 0.9% Normal Saline (100mL Bag) 80 ML 10 MG CONT INF (20:25)
[2024-12-20 20:55] LABS: Magnesium 2.0 mg/dL (1.5-2.2)
[2024-12-20 22:06] LABS: Hematocrit 32.5 % (40-54); Hemoglobin 10.2 g/dL (13.0-16.5)
[2024-12-20] MEDS: 0.9% Normal Saline (1000mL) 1,000 ML 100 ML IV (22:16)
--- NOTE | 2024-12-20 22:35 | CPS ---
Pt is on home ventilator brought in by parents.
[2024-12-20] MEDS: 0.9% Saline Lock 10 ML Syringe IV (22:42)
[2024-12-20 22:59] LABS: Reflex Lactate? Y
[2024-12-20] MEDS: Acetaminophen 650 MG/20 ML UDC GT (23:59)
[2024-12-20] MEDS: GABAPENTIN 250 MG/5 ML SOLUTION 500 MG GT (23:59)
[2024-12-21] VITALS (48 sets, daily range): BP systolic 75–150; BP diastolic 45–114; PULSE 51–110; RESP 10–82; TEMP 35.7–36.1; O2SAT 91–98; BMI 36.6
[2024-12-21 02:12] LABS: Hematocrit 31.2 % (40-54); Hemoglobin 9.8 g/dL (13.0-16.5)
--- NOTE | 2024-12-21 04:40 | RAD_ITS ---
PROCEDURE: RAD/Chest 1 View (Portable)
[2024-12-21] MEDS: 0.9% Saline Lock 10 ML Syringe IV ×3 (05:15→21:47)
[2024-12-21 05:24] LABS: Hematocrit 30.2 % (40-54); Hemoglobin 9.6 g/dL (13.0-16.5); Immature Granulocytes Count 0.020 X10^3/uL (0.0-0.0); Mean Corp Hgb Conc 31.8 g/dL (32-36); Mean Corpuscular Volume 82.7 fL (80-94); Mean Platelet Vol. 10.1 fl (6.2-12.0); NRBC Flagged by Analyzer 0 % (0-5); Platelet Count 152 K/mm3 (150-450); RBC Distribution Width CV 17.1 % (11.6-14.6); RBC Distribution Width SD 50.7 fl (35.1-43.9); Red Blood Count 3.65 M/mm3 (4.6-6.2); White Blood Count 5.6 K/mm3 (4.4-11.0)
[2024-12-21] MEDS: GABAPENTIN 250 MG/5 ML SOLUTION 500 MG GT ×2 (06:19→19:18)
[2024-12-21 06:24] LABS: AST(SGOT) 15 U/L (<=37); Alanine Aminotransfer ALT/SGPT 12 U/L (<=46); Albumin, Serum 3.4 g/dL (3.5-5.0); Alkaline Phosphatase 168 U/L (40-129); Anion Gap 10 (5-15); BUN 8 mg/dL (4-19); BUN/Creat Ratio 29.9 RATIO (10-20); Calcium,Total 8.3 mg/dL (7.6-11.0); Carbon Dioxide 27.9 mmol/L (21.0-32.0); Chloride 103 mmol/L (98-108); Estimated Creatinine Clearance 311.31 ml/min (50-250); Globulin 4.0 g/dL (2.2-4.2); Glucose 86 mg/dL (70-99); Potassium 3.4 mmol/L (3.3-5.1)
[2024-12-21] MEDS: Piperacil/Tazobactam 3.375 GM in 0.9% Normal Saline (50mL MB+) 50 ML IV ×3 (06:24→21:46)
--- NOTE | 2024-12-21 07:25 | PN.HOSP_ITS ---
Reason for Visit
--- NOTE | 2024-12-21 07:25 | PCM.PN.HOSP ---
Reason for Visit Chief Complaint: Respiratory distress, N/V, concern aspiration, dark emesis. Subjective Subjective Patient is a 44-year-old gentleman with history of cerebral palsy with quadriplegia and chronic respiratory failure vent dependent brought to the emergency department with shortness of breath as well as dark emesis. Imaging studies obtained on admission demonstrated pulmonary edema no focal consolidation Objective Data Objective Data Vital Signs: Vital Signs Temp Pulse Resp BP Pulse Ox O2 Del Method O2 Flow Rate 97.0 F L 77 12 128/84 H 98 Mechanical Ventilator 5 12/21/24 04:00 12/21/24 07:00 12/21/24 07:00 12/21/24 07:00 12/21/24 07:00 12/21/24 07:00 12/21/24 07:00 FiO2 30 12/20/24 21:00 Oxygen Flow Rate (L/min) 5 Oxygen Delivery Method Mechanical Ventilator Weight: 85.1 kg Body Mass Index (BMI) 36.6 Intake & Output: Intake and Output for Last 24 Hours 12/19/24 12/20/24 12/21/24 23:59 23:59 23:59 Intake Total 135 / 135 60 / 60 Balance 135 / 135 60 / 60 Lab / Micro Data 12/21/24 05:10 12/21/24 05:10 Labs: Laboratory Results - last 24 hr 12/20/24 18:44: WBC 6.5, RBC 4.21 L, Hgb 10.9 L, Hct 35.3 L, MCV 83.8, MCH 25.9 L, MCHC 30.9 L, RDW Std Deviation 51.2 H, RDW Coeff of Emilee 17.1 H, Plt Count 165, MPV 9.8, Immature Gran % (Auto) 0.500, Neut % (Auto) 55.6, Lymph % (Auto) 34.3, [place] % (Auto) 6.7, Eos % (Auto) 2.6, Baso % (Auto) 0.3, Absolute Neuts (auto) 3.6, Absolute Lymphs (auto) 2.24, Nucleated RBC % 0, Sodium 139, Potassium 3.7, Chloride 99, Carbon Dioxide 25.9, Anion Gap 14, BUN 7, Creatinine 0.35 L, Estim Creat Clear Calc 252.70 H, Est GFR (MDRD) Non-Af 145, BUN/Creatinine Ratio 21.3 H, Glucose 103 H, Lactic Acid 2.3 H*, Calcium 9.0, Phosphorus 4.5, Magnesium 2.0, Total Bilirubin 0.23, AST 19, ALT 11, Alkaline Phosphatase 179 H, Total Protein 8.5 H, Albumin 3.6, Globulin 4.9 H, Albumin/Globulin Ratio 0.7 L, Blood Type A POSITIVE, Antibody Screen NEGATIVE 12/20/24 21:58: Hgb 10.2 L, Hct 32.5 L 12/20/24 23:44: Lactic Acid 2.5 H* 12/21/24 02:00: Hgb 9.8 L, Hct 31.2 L 12/21/24 05:10: WBC 5.6, RBC 3.65 L, Hgb 9.6 L, Hct 30.2 L, MCV 82.7, MCH 26.3 L, MCHC 31.8 L, RDW Std Deviation 50.7 H, RDW Coeff of Emilee 17.1 H, Plt Count 152, MPV 10.1, Immature Gran % (Auto) 0.400, Neut % (Auto) 70.2 H, Lymph % (Auto) 19.3, [place] % (Auto) 8.8, Eos % (Auto) 1.1, Baso % (Auto) 0.2, Absolute Neuts (auto) 3.9, Absolute Lymphs (auto) 1.08, Nucleated RBC % 0, Sodium 141, Potassium 3.4, Chloride 103, Carbon Dioxide 27.9, Anion Gap 10, BUN 8, Creatinine 0.28 L, Estim Creat Clear Calc 311.31 H, Est GFR (MDRD) Non-Af 155, BUN/Creatinine Ratio 29.9 H, Glucose 86, Calcium 8.3, Total Bilirubin 0.22, AST 15, ALT 12, Alkaline Phosphatase 168 H, Total Protein 7.3, Albumin 3.4 L, Globulin 4.0, Albumin/Globulin Ratio 0.9 Micro: Microbiology 12/21/24 00:35 Gastric Fluid/Contents Gastric Occult Blood - Final Occult Blood Positive 12/21/24 00:35 Stool Stool Occult Blood (LONG) - Final Occult Blood Positive Radiography Diagnostic Testing: Radiology Impression Chest X-Ray 12/20/24 19:50 IMPRESSION: Mild pulmonary edema. No focal consolidation. Reading Location: [facility] Chest X-Ray 12/21/24 04:40 IMPRESSION: Stable cardiomegaly and CHF changes [facility] Physical Exam Narrative GENERAL: Patient appears comfortable on the vent HEENT: Atraumatic; normal conjunctiva EYES; Anicteric, Normal Conjunctiva NECK; trach in place RESPIRATORY: Diminished to auscultation CARDIOVASCULAR: Regular S1 S2, GI: soft, normoactive bowel sounds, : No Renal angle tenderness; EXTREMITIES: No edema, no clubbing, MUSCULOSKELETAL: Contractures NEURO: Awake; noncommunicative SKIN: No rash Assessment & Plan Assessment/Plan (1) Respiratory failure: (2) Aspiration into airway: (3) GI bleed: PLAN: Plan Patient is a 44-year-old gentleman with history of cerebral palsy with quadriplegia and chronic respiratory failure vent dependent brought to the emergency department with shortness of breath as well as dark emesis. Imaging studies obtained on admission demonstrated pulmonary edema no focal consolidation 1. Acute on Chronic hypoxic and hypercarbic respiratory failure secondary to Aspiration Event with concern for Aspiration pneumonitis ? Admitted to the intensive care unit. Started on broad-spectrum antibiotic therapy with Zosyn. Patient is vent dependent did continue with home vent settings 2. Upper GI bleed ? Patient presented with coffee-ground emesis. Started on PPI subsequently monitoring H&H with plans to transfuse if hemoglobin falls below 7 anemia 3. Lactic acidosis ? Secondary to increased work of breathing. Patient did not meet criteria for sepsis 4. Chronic respiratory failure ? Secondary to cerebral palsy patient is vent dependent. Plan is to continue with patient home vent settings well as inpatient 5. 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 Seizure disorder ? On phenobarb and gabapentin and Ativan 7. Chronic dysphagia ? Status post PEG tube. Consulted dietitian to recommend tube feeding 8. Previous history of VTE ? Patient completed treatment per per guidelines 9. DVT prophylaxis ? Lovenox Time spent in the patient's overall evaluation,decision-making process, review of diagnostic data, adjustment of management, discussion with other providers, nursing nursing and ancillary staff involved in patient's care documentation, 52 Minutes Charges/Coding Visit Charges Inpatient E&M: 34581 Subs Hosp L3
[2024-12-21] MEDS: Pantoprazole Sodium 80 MG in 0.9% Normal Saline (100mL Bag) 80 ML 10 MG CONT INF ×2 (08:25→20:52)
[2024-12-21] MEDS: PLECANATIDE 3 MG TABLET GT (08:28)
[2024-12-21] MEDS: guaiFENesin 10 ML UDC (200MG/10ML) 2 ML GT (08:34)
[2024-12-21] MEDS: 0.9% Normal Saline (1000mL) 1,000 ML 100 ML IV (08:37)
[2024-12-21] MEDS: MONTELUKAST 4 MG PO (08:37)
--- NOTE | 2024-12-21 09:40 | WOUNDNOTE ---
Was asked to see patient for ostomy care. patient has a colostomy with a very large prolapse. prolapse has been present for quite some time. pt's parents change the appliance. currently using a 1 piece [employer] flat appliance. mother and father both present in room. mother states she just changed the appliance yesterday and typically changes it weekly. states she will bring in their supplies and change as needed. aware to call if assistance is needed.
[2024-12-21] MEDS: Chlorhexidine 15 ML PO ×2 (10:00→21:57)
--- NOTE | 2024-12-21 10:01 | EX.PCM.CONCC ---
Assessment & Plan Assessment/Plan (1) Acute upper gastrointestinal bleeding: PLAN: Plan RECOMMENDATIONS: 1. Discontinue antimicrobials. 2. Continue ventilatory support per baseline regimen. 3. Continue to monitor blood counts and transfuse if hemoglobin drops below 7 g/dL. 4. Continue PPI therapy. GI consultation is pending. 5. Will sign off from a critical care perspective but will be available if any ICU needs arise. IMPRESSIONS: 1. Chronic combined respiratory failure The patient is at his baseline from a respiratory perspective on his home ventilator. No significant secretions were noted. His chest imaging demonstrated no acute cardiopulmonary findings. The patient is afebrile with a normal white blood cell count. Given the aforementioned, we will discontinue antimicrobials. Continue baseline oxygen and home ventilator support. 2. History of chronic anemia Although stool for occult blood was noted to be positive, the patient's blood counts are stable. Agree with continuing PPI therapy. Gastroenterology consultation is pending. 3. Cerebral palsy with spastic quadriplegia/seizure disorder/GERD/anemia/history of candidal esophagitis Complicates care, management, recovery and prognosis. Continue home medications as indicated. This note was generated with [employer] dictation software. It may contain incorrect words, spelling, and punctuation that were not noted in checking the note before signing. HPI Consult Data Date of Consult: 12/21/24 HPI Narrative Reason for Consultation: Chronic respiratory failure HPI Narrative: The patient is a 44-year-old male, with a history as outlined below, who presented to the emergency department via EMS on December 20 with concern for aspiration and coffee-ground emesis. The patient has a known history of chronic respiratory failure requiring ventilatory support, cerebral palsy with spastic quadriplegia, underlying epilepsy, GERD and anemia. On presentation to the emergency department, the patient was noted to be afebrile and mildly tachycardic. He was otherwise hemodynamically stable on his baseline home ventilator settings. Laboratory evaluation revealed a normal white blood cell count. Hemoglobin was stable at 10.9 g/dL. Platelet count was within normal limits. Chemistry profile was notable for a creatinine of 0.35 with a lactate of 2.3. Chest x-ray demonstrated no acute cardiopulmonary process. Stool for occult blood was positive. A sputum culture was obtained. The patient was ultimately placed on antibiotics and PPI therapy. He was then admitted to the medical intensive care unit for further management. I did speak with the patient's mother this morning at the bedside. She indicated that he is at his baseline from a respiratory perspective. Given that there are no focal findings noted on chest x-ray, with a normal white blood cell count and lack of fever, we will discontinue antibiotics. Gastroenterology consultation is pending. [facility] History Hypogonadism in male Osteoporosis History of aspiration pneumonia Tachycardia Aspiration pneumonia Anxiety GERD (gastroesophageal reflux disease) Non-smoker On home oxygen therapy Pulmonary embolism Seizures Cerebral palsy Chronic respiratory failure with hypoxia Pseudomonas pneumonia Colostomy prolapse Cerebral palsy Acute dyspnea Anemia in chronic illness Upper GI bleeding (04/2020) Thrombocytopenia Pulmonary embolism on left (06/14/19) Iron deficiency anemia Obesity Tracheostomy in place Debility Chronic respiratory failure Edema Nonrheumatic mitral valve prolapse Redundant colon History of seizure disorder Home Medications ?Medication ?Instructions ?Recorded ?Last Taken ?Type phenobarbital 20 mg/5 mL (4 mg/mL) 60 mg G-tube 0830,2100 SEIZURES 02/19/17 09/03/24 History oral elixir metoclopramide HCl 5 mg/5 mL oral 10 mg feeding tube 0830,1600,2100 09/16/18 09/03/24 History solution STOMACH Cough Assist 1 dose .Route .MEDSUPPLY assist in 12/25/18 09/03/24 History clearing secretions gabapentin 250 mg/5 mL oral 500 mg G-tube 0000,0600,1200,1800 09/26/19 09/03/24 History solution SEIZURES albuterol sulfate 2.5 mg/3 mL 2.5 mg inhalation Q4H PRN Sob &/Or 11/27/20 09/03/24 History (0.083 %) solution for nebulization Wheezing doxazosin 2 mg tablet 2 mg PO 0830 BLOOD PRESSURE 11/30/21 09/03/24 History cholecalciferol (vitamin D3) 10 15 mcg feeding tube 0830 SUPPLEMENT 03/24/22 09/03/24 History mcg/mL (400 unit/mL) oral drops acetaminophen 650 mg/20.3 mL oral 650 mg feeding tube 10/24/22 01/04/24 History suspension 0000,0600,1200,1800 PRN PAIN aluminum-mag hydroxide-simethicone 5 ml PO 0000,0600,1200,1800 PRN 10/24/22 09/03/24 History 200 mg-200 mg-20 mg/5 mL oral susp ANTACID baclofen 20 mg tablet 20 mg feeding tube Q6H MUSCLE 12/10/22 09/03/24 History SPASMS ondansetron 4 mg disintegrating 4 mg PO Q8H PRN NAUSEA/VOMITING 12/13/22 Unknown Rx tablet #30 tabs esomeprazole magnesium 40 mg 40 mg G-tube BID ACID REFLUX 03/23/23 09/03/24 History granules delayed release for susp (Nexium Packet) ipratropium 0.5 mg-albuterol 3 mg 3 ml inhalation Q4H PRN SOB &/OR 03/23/23 09/03/24 History (2.5 mg base)/3 mL nebulization WHEEZING soln cetirizine 1 mg/mL oral solution 10 mg (10 mL) feeding tube 1600 09/30/23 09/03/24 Rx ALLERGIES #480 mL lorazepam 2 mg/mL oral concentrate 2 mg feeding tube DAILY PRN 01/04/24 01/03/24 History (Lorazepam Intensol) agitation food supplemt, lactose-reduced 1,000 ml PO QDAY 04/04/24 09/03/24 History 0.04 gram-1.05 kcal/mL oral liquid (Ensure Original) guaifenesin 200 mg/5 mL oral liquid 2 mg feeding tube 0830 04/04/24 09/03/24 History COUGH/CONGESTION oxygen concentrator #1 ea 09/29/24 Unknown Rx montelukast 4 mg oral granules in 4 mg PO DAILY ASTHMA #90 ea 10/18/24 Unknown Rx packet (Singulair) plecanatide 3 mg tablet 3 mg G-tube QODAY BOWELS 12/20/24 Unknown History testosterone (AndroGel) 1 pump topical QODAY 12/20/24 Unknown History Allergy/AdvReac Type Severity Reaction Status Date / Time chlorhexidine Allergy Rash Verified 12/20/24 21:10 cisapride monohydrate (From Allergy Rash Verified 12/20/24 21:10 Propulsid) house dust Allergy NEEDS Verified 12/20/24 21:10 FOLLOW-UP metronidazole (From Flagyl) Allergy Rash Verified 12/20/24 21:10 codeine AdvReac hallucinati Verified 12/20/24 21:10 ons morphine AdvReac Hallucinati Verified 12/20/24 21:10 ons Family History Mother Hepatitis C Hypertension HIV disease CVA (cerebral vascular accident) Liver disease Father H/O heart artery stent CAD (coronary artery disease) Atrial fibrillation Hypertension Esophageal cancer Grandmother Asthma Diverticulitis Diabetes Myocardial infarction Heart disease Surgical History History of eye surgery Heel cord lengthening History of soft tissue release History of open reduction and internal fixation (ORIF) procedure History of gastrostomy tube placement Status post insertion of intrathecal baclofen pump History of colostomy Colostomy in place Social History household members: family housing: house current occupational status: disabled Smoking Status: Never smoker alcohol intake: never substance use type: does not use caffeine: No ROS Review of Systems ROS Unobtainable: due to mental status Physical Exam Const alert and no apparent distress Constitutional Narrative: Nonverbal at baseline. Mother remains at the bedside. HEENT head/scalp atraumatic and moist oral mucous membranes Eyes conjunctivae normal and no scleral icterus Neck supple Neck Narrative: Tracheostomy site intact. Chest inspection of chest normal Resp normal respiratory effort Auscultation: diminished lung sounds; Negative for rales, rhonchi or wheezes Cardio regular rate, regular rhythm, S1 normal heart sound and S2 normal heart sound GI normal to inspection, nondistended, normoactive bowel sounds Inspection: GI tube present Extremity Extremity Narrative: Baseline contractures noted. General Extremity: Negative for clubbing or edema Skin no rashes or lesions noted Neuro Neuro Narrative: Appears to be at his baseline from a neurologic perspective. Psych Mood & Affect: flat affect Lab / Micro Data 12/21/24 05:10 12/21/24 05:10 Labs: Laboratory Results - last 24 hr 12/20/24 18:44: WBC 6.5, RBC 4.21 L, Hgb 10.9 L, Hct 35.3 L, MCV 83.8, MCH 25.9 L, MCHC 30.9 L, RDW Std Deviation 51.2 H, RDW Coeff of Emilee 17.1 H, Plt Count 165, MPV 9.8, Immature Gran % (Auto) 0.500, Neut % (Auto) 55.6, Lymph % (Auto) 34.3, [place] % (Auto) 6.7, Eos % (Auto) 2.6, Baso % (Auto) 0.3, Absolute Neuts (auto) 3.6, Absolute Lymphs (auto) 2.24, Nucleated RBC % 0, Sodium 139, Potassium 3.7, Chloride 99, Carbon Dioxide 25.9, Anion Gap 14, BUN 7, Creatinine 0.35 L, Estim Creat Clear Calc 252.70 H, Est GFR (MDRD) Non-Af 145, BUN/Creatinine Ratio 21.3 H, Glucose 103 H, Lactic Acid 2.3 H*, Calcium 9.0, Phosphorus 4.5, Magnesium 2.0, Total Bilirubin 0.23, AST 19, ALT 11, Alkaline Phosphatase 179 H, Total Protein 8.5 H, Albumin 3.6, Globulin 4.9 H, Albumin/Globulin Ratio 0.7 L, Blood Type A POSITIVE, Antibody Screen NEGATIVE 12/20/24 21:58: Hgb 10.2 L, Hct 32.5 L 12/20/24 23:44: Lactic Acid 2.5 H* 12/21/24 02:00: Hgb 9.8 L, Hct 31.2 L 12/21/24 05:10: WBC 5.6, RBC 3.65 L, Hgb 9.6 L, Hct 30.2 L, MCV 82.7, MCH 26.3 L, MCHC 31.8 L, RDW Std Deviation 50.7 H, RDW Coeff of Emilee 17.1 H, Plt Count 152, MPV 10.1, Immature Gran % (Auto) 0.400, Neut % (Auto) 70.2 H, Lymph % (Auto) 19.3, [place] % (Auto) 8.8, Eos % (Auto) 1.1, Baso % (Auto) 0.2, Absolute Neuts (auto) 3.9, Absolute Lymphs (auto) 1.08, Nucleated RBC % 0, Sodium 141, Potassium 3.4, Chloride 103, Carbon Dioxide 27.9, Anion Gap 10, BUN 8, Creatinine 0.28 L, Estim Creat Clear Calc 311.31 H, Est GFR (MDRD) Non-Af 155, BUN/Creatinine Ratio 29.9 H, Glucose 86, Calcium 8.3, Total Bilirubin 0.22, AST 15, ALT 12, Alkaline Phosphatase 168 H, Total Protein 7.3, Albumin 3.4 L, Globulin 4.0, Albumin/Globulin Ratio 0.9 Micro: Microbiology 12/21/24 00:35 Gastric Fluid/Contents Gastric Occult Blood - Final Occult Blood Positive 12/21/24 00:35 Stool Stool Occult Blood (LONG) - Final Occult Blood Positive Imaging Radiology Impression Chest X-Ray 12/20/24 19:50 IMPRESSION: Mild pulmonary edema. No focal consolidation. Reading Location: [id number] Chest X-Ray 12/21/24 04:40 IMPRESSION: Stable cardiomegaly and CHF changes [facility] Charges/Coding Visit Charges Inpatient E&M: 37938 Init Hosp L2
[2024-12-21] MEDS: Lactated Ringers 500 ML 999 ML IV (11:22)
--- NOTE | 2024-12-21 11:25 | CASEMGMT ---
Addendum entered by Jen Ibrahim 12/21/24 11:37: Call rec'd from [facility] who reports they provide OT/ST/SN. RN CM updated. Jen Ibrahim DC Planning Asst. Original Note: Discharge Planning Updates sent via [facility] to [facility] and Andrew Cruz to notify of admission and verify disciplines being received. Awaiting response. Jen Ibrahim DC Planning Asst.
--- NOTE | 2024-12-21 11:28 | CASEMGMT ---
RN CM assessment: RN CM to pt's room for initial transition planning/care coordination assessment. Pt is nonverbal and disabled. Pt's mom and dad at the bedside (Matteo and Michael). RN CM introduced self and role at [facility] and they voice understanding at this time and are agreeable to answering this RN CM questions for assessment. Care providers, pharmacy, and demographics verified at this time. Admiting dx: Acute on Chronic RF LACE: 3 PCP: Dr Conn Specialists: [facility]. [facility]. [facility]. Dr Henderson (ENT). Dr Barth (Ophthalmology). Dr Chen (PM). Preferred Pharmacy: [facility] @ discharge. Insurance: [facility], [employer] Prescription Benefit: Yes LNOK: Matteo Diaz, mother; Michael Pelaez Sprostjennifer III, father Living Arrangements: Pt lives with his parents in a single story home with a basement with an elevator. There are ramps to enter the home. ADLs/HH: Pt is dependent. Pt has assistance from his parents as well as skilled HHC and home health aides. Matteo states that the pt is active with [facility] skilled [facility] services. DPA notified. Matteo states that [facility] comes to the home on Wednesdays and from 8a-4p. [facility] comes on Tuesdays 8-12p. Matteo states that [facility] comes to the home q Wednesday, Wednesday, Wednesday, and Wednesday from 10p-8a. Matteo states that the pt is also active with 3 VICE PRINCIPAL. One of the VICE PRINCIPAL is through [facility] that comes q Wednesday and q other Wednesday and also 4p-9p q Wednesday and , and 8a-8p q Wednesday and Wednesday. Matteo states that the pt is active with 2 VICE PRINCIPAL through the [facility] that comes q other Wednesday and q Wednesday from 1230p-8p and overnight (10p-6a) q , Wednesday, and Wednesday. Parents report that the HH aides have been notified of admission. Parents reports that they plan to resume care through the 2 skilled HHC Agencies and decline wanting to review a list of other local in-network skilled HHC Agencies. Transportation: Michael states that they have a handicap accessible van with a lift but is requesting ambulance transport at discharge. DME: [place] G-Tube, feeding pump (gets supplies from [facility]), tracheostomy, colostomy ([facility] gets supplies for this), shower chair, W/C, hospital bed w/double side rails, ramp, cough assist device, ceiling tract, elevator to basement, estefany lift, Eye gaze communication device, and ventilator thru [facility]. Back-up ventilator. Pt uses ventilator @ HS and occasionally during the day. O2 bleed-in through the vent @ HS @ 3 L/M and also O2 during the day thru [facility] device @ 2 L/M. x2 concentrators, 1 POC, and suction machine for trach care. Goal: Home w/ family and resumption of [facility]: SN, OT, and [facility] through [facility] (SN). Also resumption of aides through the [facility] and [facility]. Plan: Home with [facility]. Follow for transportation needs. Parents state no concerns with going home at time of discharge. Parents state no further concerns/needs at this time. Dandy PERKINS RN CM
[2024-12-21 12:09] LABS: Hematocrit 25.8 % (40-54); Hemoglobin 8.2 g/dL (13.0-16.5)
[2024-12-21] MEDS: Norepinephrine 8 MG in 0.9% Normal Saline (250mL Bag) 242 ML 9.4 MG CONT INF (12:24)
--- NOTE | 2024-12-21 12:45 | PCM.PN.BLA ---
Progress Note I was notified by nursing staff that the patient's blood pressures had began to decline. In response, a 1 L bolus of LR was provided and a repeat H&H was obtained. The patient did not respond to the fluid challenge. His hemoglobin was noted to be 8.2 g/dL, down from 10.9 g/dL at presentation yesterday. Therefore, an order was given to initiate Levophed. I did call and speak with Dr. Gregory of gastroenterology and updated him on the patient's status.
--- NOTE | 2024-12-21 14:39 | CHAPLAIN ---
Type of Pastoral Visit _x__ Initial Visit ___ Follow-up Visit ___ On-call Visit ___ General Patient Visit ___ Spiritual Assessment ___ Family Conference ___ Bereavement ___ Rapid Response ___ Code Blue ___ Other (describe below) Pastoral Care Referral From ___ Patient _x__ Family ___ Nurse ___ Physician ___ Cashier Supervisor ___ Beauty Parlor Cleaner ___ Other (describe below) Sacrament/Intervention _x__ Active listening ___ Anointing ___ Nondenominational ___ Bereavement ___ Communion ___ Sandra exploration ___ ___ Life review _x__ Prayer ___ Reconciliation ___ Sacrament of Sick _x__ Supportive presence ___ Wedding ___ Other (describe below) Pastoral Comments patient is nonverbal and now sleeping; mother is at bedside and has been seen many times previously; mother explains the situation and the complications of recent days/hours; mother is offered support and she describes the year with many health issues of and son; mother admits to exhaustion and welcomes prayers for support; compassion shown and prayers given
--- NOTE | 2024-12-21 14:49 | EX.PCM.CON.G ---
HPI Consult Data Date of Consult: 12/21/24 HPI Narrative Reason for Consultation: Gi bleeding HPI Narrative: KRISS MICHAEL, is a a 44-year-old male with a complex medical history, brought to the [facility] ED on 12/20/24 by family. According to family, the patient had an emesis event that was noted to be extremely dark and black, followed by an increase in dyspnea. There is concern for aspiration given the patient's history of frequent aspiration difficulties. Past Medical History (PMHx):?Chronic anemia, chronic asthma with allergic rhinitis, chronic hypoxic and hypercarbic respiratory failure on chronic ventilation, cerebral palsy with quadriplegia, history of previous baclofen pump, colostomy, chronic catheter, frequent aspiration difficulties, G-J tube in place, seizure disorder, and history of pulmonary embolism (PE) that transitioned to Lovenox with associated significant thrombocytopenia. I was asked to see him due to decreasing hemoglobin by 2 g and the need for pressor therapy possibly secondary to GI bleed. [facility] Medical History Hypogonadism in male Osteoporosis History of aspiration pneumonia Tachycardia Aspiration pneumonia Anxiety GERD (gastroesophageal reflux disease) Non-smoker On home oxygen therapy Pulmonary embolism Seizures Cerebral palsy Chronic respiratory failure with hypoxia Pseudomonas pneumonia Colostomy prolapse Cerebral palsy Acute dyspnea Anemia in chronic illness Upper GI bleeding (04/2020) Thrombocytopenia Pulmonary embolism on left (06/14/19) Iron deficiency anemia Obesity Tracheostomy in place Debility Chronic respiratory failure Edema Nonrheumatic mitral valve prolapse Redundant colon History of seizure disorder Home Medications ?Medication ?Instructions ?Recorded ?Last Taken ?Type phenobarbital 20 mg/5 mL (4 mg/mL) 60 mg G-tube 0830,2100 SEIZURES 02/19/17 09/03/24 History oral elixir metoclopramide HCl 5 mg/5 mL oral 10 mg feeding tube 0830,1600,2100 09/16/18 09/03/24 History solution STOMACH Cough Assist 1 dose .Route .MEDSUPPLY assist in 12/25/18 09/03/24 History clearing secretions gabapentin 250 mg/5 mL oral 500 mg G-tube 0000,0600,1200,1800 09/26/19 09/03/24 History solution SEIZURES albuterol sulfate 2.5 mg/3 mL 2.5 mg inhalation Q4H PRN Sob &/Or 10/06/21 07/13/25 History (0.083 %) solution for nebulization Wheezing doxazosin 2 mg tablet 2 mg PO 0830 BLOOD PRESSURE 11/30/21 09/03/24 History cholecalciferol (vitamin D3) 10 15 mcg feeding tube 0830 SUPPLEMENT 03/24/22 09/03/24 History mcg/mL (400 unit/mL) oral drops acetaminophen 650 mg/20.3 mL oral 650 mg feeding tube 10/24/22 01/04/24 History suspension 0000,0600,1200,1800 PRN PAIN aluminum-mag hydroxide-simethicone 5 ml PO 0000,0600,1200,1800 PRN 10/24/22 09/03/24 History 200 mg-200 mg-20 mg/5 mL oral susp ANTACID baclofen 20 mg tablet 20 mg feeding tube Q6H MUSCLE 12/10/22 09/03/24 History SPASMS ondansetron 4 mg disintegrating 4 mg PO Q8H PRN NAUSEA/VOMITING 12/13/22 Unknown Rx tablet #30 tabs esomeprazole magnesium 40 mg 40 mg G-tube BID ACID REFLUX 03/23/23 09/03/24 History granules delayed release for susp (Nexium Packet) ipratropium 0.5 mg-albuterol 3 mg 3 ml inhalation Q4H PRN SOB &/OR 03/23/23 09/03/24 History (2.5 mg base)/3 mL nebulization WHEEZING soln cetirizine 1 mg/mL oral solution 10 mg (10 mL) feeding tube 1600 09/30/23 09/03/24 Rx ALLERGIES #480 mL lorazepam 2 mg/mL oral concentrate 2 mg feeding tube DAILY PRN 01/04/24 01/03/24 History (Lorazepam Intensol) agitation food supplemt, lactose-reduced 1,000 ml PO QDAY 04/04/24 09/03/24 History 0.04 gram-1.05 kcal/mL oral liquid (Ensure Original) guaifenesin 200 mg/5 mL oral liquid 2 mg feeding tube 0830 04/04/24 09/03/24 History COUGH/CONGESTION oxygen concentrator #1 ea 09/29/24 Unknown Rx montelukast 4 mg oral granules in 4 mg PO DAILY ASTHMA #90 ea 10/18/24 Unknown Rx packet (Singulair) plecanatide 3 mg tablet 3 mg G-tube QODAY BOWELS 12/20/24 Unknown History testosterone (AndroGel) 1 pump topical QODAY 12/20/24 Unknown History Allergy/AdvReac Type Severity Reaction Status Date / Time chlorhexidine Allergy Rash Verified 12/20/24 21:10 cisapride monohydrate (From Allergy Rash Verified 12/20/24 21:10 Propulsid) house dust Allergy NEEDS Verified 12/20/24 21:10 FOLLOW-UP metronidazole (From Flagyl) Allergy Rash Verified 12/20/24 21:10 codeine AdvReac hallucinati Verified 12/20/24 21:10 ons morphine AdvReac Hallucinati Verified 12/20/24 21:10 ons Family History Mother Hepatitis C Hypertension HIV disease CVA (cerebral vascular accident) Liver disease Father H/O heart artery stent CAD (coronary artery disease) Atrial fibrillation Hypertension Esophageal cancer Grandmother Asthma Diverticulitis Diabetes Myocardial infarction Heart disease Surgical History History of eye surgery Heel cord lengthening History of soft tissue release History of open reduction and internal fixation (ORIF) procedure History of gastrostomy tube placement Status post insertion of intrathecal baclofen pump History of colostomy Colostomy in place Social History household members: family housing: house current occupational status: disabled Smoking Status: Never smoker alcohol intake: never substance use type: does not use caffeine: No ROS Constitutional Constitutional: Denies fatigue, fever(s), poor appetite, weight gain or weight loss Gastrointestinal Gastrointestinal: Denies belching, bloating, change in bowel habits, change in stool character, chewing difficulty, coffee ground emesis, constipation, cramping, diarrhea, dyspepsia, dysphagia, early satiety, excessive flatus, fecal incontinence, heartburn, hematemesis, hematochezia, hemorrhoids, loose stools, melena, nausea, odynophagia, rectal bleeding, tenesmus, vomiting or weight changes Physical Exam Narrative GENERAL: Patient appears comfortable on the vent HEENT: Atraumatic; normal conjunctiva EYES; Anicteric, Normal Conjunctiva NECK; trach in place RESPIRATORY: Diminished to auscultation CARDIOVASCULAR: Regular S1 S2, GI: soft, normoactive bowel sounds, : No Renal angle tenderness; EXTREMITIES: No edema, no clubbing, MUSCULOSKELETAL: Contractures NEURO: Awake; noncommunicative SKIN: No rash Lab / Micro Data 12/21/24 11:55 12/21/24 05:10 Labs: Laboratory Results - last 24 hr 12/20/24 18:44: WBC 6.5, RBC 4.21 L, Hgb 10.9 L, Hct 35.3 L, MCV 83.8, MCH 25.9 L, MCHC 30.9 L, RDW Std Deviation 51.2 H, RDW Coeff of Emilee 17.1 H, Plt Count 165, MPV 9.8, Immature Gran % (Auto) 0.500, Neut % (Auto) 55.6, Lymph % (Auto) 34.3, Newton % (Auto) 6.7, Eos % (Auto) 2.6, Baso % (Auto) 0.3, Absolute Neuts (auto) 3.6, Absolute Lymphs (auto) 2.24, Nucleated RBC % 0, Sodium 139, Potassium 3.7, Chloride 99, Carbon Dioxide 25.9, Anion Gap 14, BUN 7, Creatinine 0.35 L, Estim Creat Clear Calc 252.70 H, Est GFR (MDRD) Non-Af 145, BUN/Creatinine Ratio 21.3 H, Glucose 103 H, Lactic Acid 2.3 H*, Calcium 9.0, Phosphorus 4.5, Magnesium 2.0, Total Bilirubin 0.23, AST 19, ALT 11, Alkaline Phosphatase 179 H, Total Protein 8.5 H, Albumin 3.6, Globulin 4.9 H, Albumin/Globulin Ratio 0.7 L, Blood Type A POSITIVE, Antibody Screen NEGATIVE 12/20/24 21:58: Hgb 10.2 L, Hct 32.5 L 12/20/24 23:44: Lactic Acid 2.5 H* 12/21/24 02:00: Hgb 9.8 L, Hct 31.2 L 12/21/24 05:10: WBC 5.6, RBC 3.65 L, Hgb 9.6 L, Hct 30.2 L, MCV 82.7, MCH 26.3 L, MCHC 31.8 L, RDW Std Deviation 50.7 H, RDW Coeff of Emilee 17.1 H, Plt Count 152, MPV 10.1, Immature Gran % (Auto) 0.400, Neut % (Auto) 70.2 H, Lymph % (Auto) 19.3, Newton % (Auto) 8.8, Eos % (Auto) 1.1, Baso % (Auto) 0.2, Absolute Neuts (auto) 3.9, Absolute Lymphs (auto) 1.08, Nucleated RBC % 0, Sodium 141, Potassium 3.4, Chloride 103, Carbon Dioxide 27.9, Anion Gap 10, BUN 8, Creatinine 0.28 L, Estim Creat Clear Calc 311.31 H, Est GFR (MDRD) Non-Af 155, BUN/Creatinine Ratio 29.9 H, Glucose 86, Calcium 8.3, Total Bilirubin 0.22, AST 15, ALT 12, Alkaline Phosphatase 168 H, Total Protein 7.3, Albumin 3.4 L, Globulin 4.0, Albumin/Globulin Ratio 0.9 12/21/24 11:55: Hgb 8.2 L, Hct 25.8 L Micro: Microbiology 12/20/24 20:06 Sputum, Tracheal Aspirate Gram Stain - Final 12/20/24 20:06 Sputum, Tracheal Aspirate Respiratory Culture - Preliminary Gram negative lyn 12/21/24 00:35 Gastric Fluid/Contents Gastric Occult Blood - Final Occult Blood Positive 12/21/24 00:35 Stool Stool Occult Blood (LONG) - Final Occult Blood Positive Imaging Radiology Impression Chest X-Ray 12/20/24 19:50 IMPRESSION: Mild pulmonary edema. No focal consolidation. Reading Location: [id number] Chest X-Ray 12/21/24 04:40 IMPRESSION: Stable cardiomegaly and CHF changes [facility] Assessment & Plan Assessment/Plan (1) GI bleed: PLAN: 44-year-old male with a history of chronic respiratory failure on chronic ventilation, cerebral palsy with quadriplegia, frequent aspiration difficulties, and coagulopathy with significant thrombocytopenia who presents with acute dyspnea following an aspiration event with notable dark black emesis. Working Diagnoses: Aspiration Pneumonia:?Aspiration is the most likely cause of the acute dyspnea, particularly given the patient's history of aspiration and the emesis event. The dark black color of the emesis suggests possible upper gastrointestinal bleeding. Upper Gastrointestinal (GI) Bleed:?The dark black coffee ground appearance of the emesis is a classic sign of upper GI bleeding, which could have been triggered by or contributed to the aspiration. The patient's history of coagulopathy and Lovenox use makes this a significant concern. Exacerbation of Chronic Respiratory Failure/Asthma:?The dyspnea could be a component of an exacerbation of his underlying chronic respiratory issues, complicated by the aspiration. Differential Diagnoses: Other causes of respiratory distress (e.g., pulmonary embolism, particularly with his history and Lovenox use). Other sources of bleeding. Plan Interventions: Respiratory Support:?Continuous positive pressure ventilation (CPAP) or other adjustments to chronic ventilation as needed. The patient maintained on vent at baseline. Diagnostic Workup:?Order a chest X-ray to assess for aspiration pneumonia. Order blood work, including a complete blood count (CBC), coagulation panel, and blood type and cross-match. GI bleed: Patient will undergo emergent endoscopy in ICU. Management: Thrombocytopenia: Likely contributing to acute blood loss anemia. ? Medications:?Hold Lovenox in the setting of possible GI bleed and thrombocytopenia Charges/Coding Visit Charges Inpatient E&M: 87034 Init Hosp L3
[2024-12-21] MEDS: fentaNYL 100 MCG/2 ML Ampul 25 MCG IV (15:17)
[2024-12-21] MEDS: Midazolam 2 MG/2 ML Syringe IV (15:18)
--- NOTE | 2024-12-21 15:18 | NURSING ---
sedation meds given for bedside egd dr molina at bedside
[2024-12-21] MEDS: Jevity 1.5 1,000 ML 20 ML GT (16:15)
[2024-12-21] MEDS: Acetaminophen 650 MG/20 ML UDC GT (19:13)
[2024-12-22] VITALS (15 sets, daily range): BP systolic 90–162; BP diastolic 59–116; PULSE 48–113; RESP 12–24; TEMP 35.6–36.1; O2SAT 94–97; BMI 36.6
[2024-12-22] MEDS: GABAPENTIN 250 MG/5 ML SOLUTION 500 MG GT ×5 (00:22→23:36)
[2024-12-22] MEDS: Pantoprazole Sodium 80 MG in 0.9% Normal Saline (100mL Bag) 80 ML 10 MG CONT INF ×3 (02:11→22:36)
[2024-12-22 04:13] LABS: Hematocrit 29.8 % (40-54); Hemoglobin 9.2 g/dL (13.0-16.5); Immature Granulocytes Count 0.020 X10^3/uL (0.0-0.0); Mean Corp Hgb Conc 30.9 g/dL (32-36); Mean Corpuscular Volume 83.5 fL (80-94); Mean Platelet Vol. 10.2 fl (6.2-12.0); NRBC Flagged by Analyzer 0 % (0-5); Platelet Count 146 K/mm3 (150-450); RBC Distribution Width CV 17.3 % (11.6-14.6); RBC Distribution Width SD 52.2 fl (35.1-43.9); Red Blood Count 3.57 M/mm3 (4.6-6.2); White Blood Count 4.0 K/mm3 (4.4-11.0)
[2024-12-22 04:46] LABS: Anion Gap 8 (5-15); BUN 8 mg/dL (4-19); BUN/Creat Ratio 24.2 RATIO (10-20); Calcium,Total 7.9 mg/dL (7.6-11.0); Carbon Dioxide 27.6 mmol/L (21.0-32.0); Chloride 104 mmol/L (98-108); Estimated Creatinine Clearance 256.37 ml/min (50-250); Glucose 77 mg/dL (70-99); Magnesium 2.0 mg/dL (1.5-2.2); Potassium 3.7 mmol/L (3.3-5.1)
[2024-12-22] MEDS: Piperacil/Tazobactam 3.375 GM in 0.9% Normal Saline (50mL MB+) 50 ML IV ×3 (05:39→21:20)
[2024-12-22] MEDS: Chlorhexidine 15 ML PO ×2 (08:13→22:03)
[2024-12-22] MEDS: MONTELUKAST 4 MG PO (08:13)
[2024-12-22] MEDS: guaiFENesin 10 ML UDC (200MG/10ML) 2 ML GT (08:17)
--- NOTE | 2024-12-22 08:39 | PN.HOSP_ITS ---
Reason for Visit
--- NOTE | 2024-12-22 08:39 | PCM.PN.HOSP ---
Reason for Visit Chief Complaint: Respiratory distress, N/V, concern aspiration, dark emesis. Objective Data Objective Data Vital Signs: Vital Signs Temp Pulse Resp BP Pulse Ox O2 Del Method O2 Flow Rate 96.2 F L 113 H 14 132/66 H 96 Mechanical Ventilator 5 12/21/24 18:00 12/22/24 07:00 12/22/24 07:00 12/22/24 07:00 12/22/24 07:00 12/22/24 07:00 12/22/24 07:00 FiO2 30 12/20/24 21:00 Oxygen Flow Rate (L/min) 5 Oxygen Delivery Method Mechanical Ventilator Weight: 187 lb 9.814 oz Body Mass Index (BMI) 36.6 Intake & Output: Intake and Output for Last 24 Hours 12/20/24 12/21/24 12/22/24 23:59 23:59 23:59 Intake Total 135 / 135 2652.50 / 2652.50 270 / 270 Output Total 0 / 0 Balance 135 / 135 2652.50 / 2652.50 270 / 270 Lab / Micro Data 12/22/24 04:00 12/22/24 04:00 Labs: Laboratory Results - last 24 hr 12/21/24 11:55: Hgb 8.2 L, Hct 25.8 L 12/22/24 04:00: WBC 4.0 L, RBC 3.57 L, Hgb 9.2 L, Hct 29.8 L, MCV 83.5, MCH 25.8 L, MCHC 30.9 L, RDW Std Deviation 52.2 H, RDW Coeff of Emilee 17.3 H, Plt Count 146 L, MPV 10.2, Immature Gran % (Auto) 0.500, Neut % (Auto) 54.1, Lymph % (Auto) 30.1, Sterling % (Auto) 10.9 H, Eos % (Auto) 4.1, Baso % (Auto) 0.3, Absolute Neuts (auto) 2.1, Absolute Lymphs (auto) 1.19, Nucleated RBC % 0, Sodium 140, Potassium 3.7, Chloride 104, Carbon Dioxide 27.6, Anion Gap 8, BUN 8, Creatinine 0.34 L, Estim Creat Clear Calc 256.37 H, Est GFR (MDRD) Non-Af 147, BUN/Creatinine Ratio 24.2 H, Glucose 77, Calcium 7.9, Phosphorus 3.5, Magnesium 2.0 Micro: Microbiology 12/20/24 20:06 Sputum, Tracheal Aspirate Gram Stain - Final 12/20/24 20:06 Sputum, Tracheal Aspirate Respiratory Culture - Preliminary Gram negative lyn 12/21/24 00:35 Gastric Fluid/Contents Gastric Occult Blood - Final Occult Blood Positive 12/21/24 00:35 Stool Stool Occult Blood (LONG) - Final Occult Blood Positive Physical Exam Narrative Seen and examined. Discussed with patient's mother near the bedside She is concerned with tachycardia, heart rate 113. Usually his heart rate is in 70s. Blood pressure better 132/66. Was on Levophed for short time/couple of hours. Physical exam General: Awake. Orientation/alertness cannot be ascertained, CP HEENT: Chronic facial edema/swelling. Atraumatic, PERRLA, EOMI, Normocephalic. Oral: Could not examine oral cavity/did not follow, and Neck: Short and wide neck. Tracheostomy. Chest wall/Lungs: On ventilator, air entry diminished in bilateral lung bases. Cardiovascular: Regular rate and rhythm, Normal S1,S2, No M/G/R Abdomen: Bowel Sounds sluggish. Buttonhole PEG tube. Large herniated colon in the colostomy bag : Accu-Chek before meals and at bedtime with Humalog sliding scale coverage and hypoglycemia protocol. Incontinent. No renal angle tenderness. No suprapubic tenderness. Extremities: No edema, Capillary Refill Less than 3 Seconds Skin: No rashes, No breakdown Musculoskeletal: Chronic contracture of knees ankle and hip joints and upper extremity joints. Neurological: GCS 10-11. Awake. Localizes to pain. Noncommunicative/nonverbal Psych/Mental Status: Opens eyes. Cerebral palsy Assessment & Plan Assessment/Plan (1) Respiratory failure: (2) Aspiration into airway: (3) GI bleed: PLAN: Plan 10/atient is a 44-year-old gentleman with history of cerebral palsy with quadriplegia and chronic respiratory failure vent dependent brought to the emergency department with shortness of breath as well as dark emesis. Imaging studies obtained on admission demonstrated pulmonary edema no focal consolidation 1. Acute on Chronic hypoxic and hypercarbic respiratory failure secondary to Aspiration Event with concern for Aspiration pneumonitis ? Admitted to the intensive care unit. Started on broad-spectrum antibiotic therapy with Zosyn. Patient is vent dependent did continue with home vent settings 12/22: Tracheal aspirate growing gram-negative lyn. Patient has history of Pseudomonas colonization 2. Upper GI bleed ? Patient presented with coffee-ground emesis. Started on PPI subsequently monitoring H&H with plans to transfuse if hemoglobin falls below 7 anemia 12/22: Patient blood pressure dropped yesterday and was given 1 L of Ringer lactate bolus and few few hours of Levophed drip. GI consulted. Hemoglobin 9.2 today. Was decreased from 10.9 to 8.2 g%. 3. Lactic acidosis ? Secondary to increased work of breathing. Patient did not meet criteria for sepsis 4. Chronic respiratory failure ? Secondary to cerebral palsy patient is vent dependent. Plan is to continue with patient home vent settings well as inpatient 12/22 on ventilator. 5. 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 Seizure disorder ? On phenobarb and gabapentin and Ativan 12/22: Patient is sinus tachycardic. Advised to give phenobarb. As per patient's mother, Ativan makes more groggy and takes long time to recover 7. Chronic dysphagia and herniated colon in the colostomy bag ? Status post PEG tube. Consulted dietitian to recommend tube feeding. As per mother he has herniated colon for 3 to 4 years and surgeon recommend conservative management and high risk for surgery 8. Previous history of VTE ? Patient completed treatment per per guidelines 9. DVT prophylaxis ? Lovenox Microbiology Past 72 Hours 12/20/24 20:06 Sputum, Tracheal Aspirate Gram Stain - Final 12/20/24 20:06 Sputum, Tracheal Aspirate Respiratory Culture - Preliminary Gram negative lyn 12/21/24 00:35 Gastric Fluid/Contents Gastric Occult Blood - Final Occult Blood Positive 12/21/24 00:35 Stool Stool Occult Blood (LONG) - Final Occult Blood Positive Laboratory Results 12/21/24 11:55: Hgb 8.2 L, Hct 25.8 L 12/22/24 04:00: WBC 4.0 L, RBC 3.57 L, Hgb 9.2 L, Hct 29.8 L, MCV 83.5, MCH 25.8 L, MCHC 30.9 L, RDW Std Deviation 52.2 H, RDW Coeff of Emilee 17.3 H, Plt Count 146 L, MPV 10.2, Immature Gran % (Auto) 0.500, Neut % (Auto) 54.1, Lymph % (Auto) 30.1, Sterling % (Auto) 10.9 H, Eos % (Auto) 4.1, Baso % (Auto) 0.3, Absolute Neuts (auto) 2.1, Absolute Lymphs (auto) 1.19, Nucleated RBC % 0, Sodium 140, Potassium 3.7, Chloride 104, Carbon Dioxide 27.6, Anion Gap 8, BUN 8, Creatinine 0.34 L, Estim Creat Clear Calc 256.37 H, Est GFR (MDRD) Non-Af 147, BUN/Creatinine Ratio 24.2 H, Glucose 77, Calcium 7.9, Phosphorus 3.5, Magnesium 2.0 Charges/Coding Visit Charges Inpatient E&M: 63448 Subs Hosp L3
--- NOTE | 2024-12-22 09:22 | PCM.PN.INT ---
Assessment & Plan Assessment/Plan (1) Acute upper gastrointestinal bleeding: PLAN: Plan RECOMMENDATIONS: 1. If sputum culture is positive for Pseudomonas, antibiotics can be discontinued from my perspective. 2. Continue ventilatory support per baseline regimen. 3. Continue to monitor blood counts and transfuse if hemoglobin drops below 7 g/dL. 4. Continue PPI therapy. 5. Will sign off from a critical care perspective. IMPRESSIONS: 1. Chronic combined respiratory failure The patient is at his baseline from a respiratory perspective on his home ventilator. No significant secretions were noted. His chest imaging demonstrated no acute cardiopulmonary findings. The patient is afebrile with a normal white blood cell count. 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 Therefore, if the patient's sputum culture is in fact positive for Pseudomonas, antibiotics can be discontinued from my perspective. Continue baseline oxygen and home ventilator support. 2. History of chronic anemia Although stool for occult blood was noted to be positive, the patient's blood counts are stable. Bedside endoscopic evaluation failed to demonstrate any stigmata of bleeding. Continue to monitor blood counts and transfuse if hemoglobin drops below 7 g/dL. 3. Cerebral palsy with spastic quadriplegia/seizure disorder/GERD/anemia/history of candidal esophagitis Complicates care, management, recovery and prognosis. Continue home medications as indicated. This note was generated with [employer]Vista dictation software. It may contain incorrect words, spelling, and punctuation that were not noted in checking the note before signing. Subjective Subjective The patient was seen and examined at the bedside this morning. Events from the last 24 hours have been reviewed. The patient remains afebrile and hemodynamically stable. He was weaned off of Levophed yesterday afternoon. The patient underwent endoscopy yesterday which failed to demonstrate any bleeding source. Objective Data Objective Data The patient's most recent lab work, culture data and imaging studies have all been personally reviewed. Sputum cultures currently demonstrating growth of a gram-negative lyn. Vital Signs: Vital Signs Temp Pulse Resp BP Pulse Ox O2 Del Method O2 Flow Rate 96.2 F L 113 H 14 132/66 H 96 Mechanical Ventilator 5 12/21/24 18:00 12/22/24 07:00 12/22/24 07:00 12/22/24 07:00 12/22/24 07:00 12/22/24 07:00 12/22/24 07:00 FiO2 30 12/20/24 21:00 Oxygen Flow Rate (L/min) 5 Oxygen Delivery Method Mechanical Ventilator Weight: 187 lb 9.814 oz Body Mass Index (BMI) 36.6 Intake & Output: Intake and Output for Last 24 Hours 12/20/24 12/21/24 12/22/24 23:59 23:59 23:59 Intake Total 135 / 135 2652.50 / 2652.50 270 / 270 Output Total 0 / 0 Balance 135 / 135 2652.50 / 2652.50 270 / 270 Lab / Micro Data Attestation: I reviewed the patient's lab results. 12/22/24 04:00 12/22/24 04:00 Labs: Laboratory Results - last 24 hr 12/21/24 11:55: Hgb 8.2 L, Hct 25.8 L 12/22/24 04:00: WBC 4.0 L, RBC 3.57 L, Hgb 9.2 L, Hct 29.8 L, MCV 83.5, MCH 25.8 L, MCHC 30.9 L, RDW Std Deviation 52.2 H, RDW Coeff of Emilee 17.3 H, Plt Count 146 L, MPV 10.2, Immature Gran % (Auto) 0.500, Neut % (Auto) 54.1, Lymph % (Auto) 30.1, Otero % (Auto) 10.9 H, Eos % (Auto) 4.1, Baso % (Auto) 0.3, Absolute Neuts (auto) 2.1, Absolute Lymphs (auto) 1.19, Nucleated RBC % 0, Sodium 140, Potassium 3.7, Chloride 104, Carbon Dioxide 27.6, Anion Gap 8, BUN 8, Creatinine 0.34 L, Estim Creat Clear Calc 256.37 H, Est GFR (MDRD) Non-Af 147, BUN/Creatinine Ratio 24.2 H, Glucose 77, Calcium 7.9, Phosphorus 3.5, Magnesium 2.0 Micro: Microbiology 12/20/24 20:06 Sputum, Tracheal Aspirate Gram Stain - Final 12/20/24 20:06 Sputum, Tracheal Aspirate Respiratory Culture - Preliminary Gram negative lyn 12/21/24 00:35 Gastric Fluid/Contents Gastric Occult Blood - Final Occult Blood Positive 12/21/24 00:35 Stool Stool Occult Blood (LONG) - Final Occult Blood Positive Physical Exam Const alert and no apparent distress Constitutional Narrative: Nonverbal at baseline. Mother remains at the bedside. HEENT head/scalp atraumatic and moist oral mucous membranes Eyes conjunctivae normal and no scleral icterus Neck supple Neck Narrative: Tracheostomy site intact. Chest inspection of chest normal Resp normal respiratory effort Auscultation: diminished lung sounds; Negative for rales, rhonchi or wheezes Cardio regular rate, regular rhythm, S1 normal heart sound and S2 normal heart sound GI normal to inspection, nondistended, normoactive bowel sounds Inspection: GI tube present Extremity Extremity Narrative: Baseline contractures noted. General Extremity: Negative for clubbing or edema Skin no rashes or lesions noted Neuro Neuro Narrative: Appears to be at his baseline from a neurologic perspective. Psych Mood & Affect: flat affect Charges/Coding Visit Charges Inpatient E&M: 86367 Subs Hosp L2
--- NOTE | 2024-12-22 09:36 | OP.EGD_ITS ---
Patient Name: Dale Diaz
--- NOTE | 2024-12-22 11:32 | CASEMGMT ---
Per rounds, pt may DC over the weekend. TC to [facility] who reports that the pt is active with their [facility] for SN. Resumption order sent via [employer]. TC to [facility] and updated that the pt may DC over the weekend. Resumption order sent via [employer]. TC to [facility] who faxed Oxygen order form. Green sheet placed on the chart to help facilitate potential weekend DC for HH, potential updated oxygen order, and transportation through [facility]. Pt's LG denies any further questions, concerns, or DC needs.
[2024-12-22] MEDS: Jevity 1.5 1,000 ML 45 ML GT (17:54)
[2024-12-23] VITALS (10 sets, daily range): BP systolic 81–137; BP diastolic 61–97; PULSE 51–80; RESP 12–18; TEMP 35.9–36.7; O2SAT 94–99
--- NOTE | 2024-12-23 00:50 | PCM.PN.BLA ---
Progress Note Patient's hemoglobin went down to 8.2 but is back up to 8.6. He underwent an upper endoscopy yesterday. And was discovered to have some irritation with some bleeding stigmata in his esophagus and stomach secondary to NG tube trauma. No other etiology was found as any other cause of acute GI blood loss in upper GI tract. Physical Exam Const alert and no apparent distress Constitutional Narrative: Nonverbal at baseline. Mother remains at the bedside. HEENT head/scalp atraumatic and moist oral mucous membranes Eyes conjunctivae normal and no scleral icterus Neck supple Neck Narrative: Tracheostomy site intact. Chest inspection of chest normal Resp normal respiratory effort Auscultation: diminished lung sounds; Negative for rales, rhonchi or wheezes Cardio regular rate, regular rhythm, S1 normal heart sound and S2 normal heart sound GI normal to inspection, nondistended, normoactive bowel sounds Inspection: GI tube present Extremity Extremity Narrative: Baseline contractures noted. General Extremity: Negative for clubbing or edema Skin no rashes or lesions noted Neuro Neuro Narrative: Appears to be at his baseline from a neurologic perspective. Psych Mood & Affect: flat affect Assessment & Plan Assessment/Plan (1) GI bleed: PLAN: No sign of GI blood loss at this time in upper GI tract. Continue to follow hemoglobin and continue PPI in the form of 40 mg IV Protonix twice daily Visit Charges Inpatient E&M: 30930 [facility] L3
[2024-12-23] MEDS: Piperacil/Tazobactam 3.375 GM in 0.9% Normal Saline (50mL MB+) 50 ML IV ×2 (05:44→15:08)
[2024-12-23] MEDS: GABAPENTIN 250 MG/5 ML SOLUTION 500 MG GT ×3 (05:45→17:47)
[2024-12-23] MEDS: PLECANATIDE 3 MG TABLET GT (07:42)
[2024-12-23] MEDS: guaiFENesin 10 ML UDC (200MG/10ML) 2 ML GT (07:49)
[2024-12-23] MEDS: 0.9% Saline Lock 10 ML Syringe IV (07:51)
--- NOTE | 2024-12-23 08:31 | PN.HOSP_ITS ---
Reason for Visit
--- NOTE | 2024-12-23 08:31 | PCM.PN.HOSP ---
Reason for Visit Chief Complaint: Respiratory distress, N/V, concern aspiration, dark emesis. Objective Data Objective Data Vital Signs: Vital Signs Temp Pulse Resp BP Pulse Ox O2 Del Method O2 Flow Rate 96.9 F L 76 13 137/97 H 99 Mechanical Ventilator 5 12/23/24 06:31 12/23/24 06:31 12/23/24 06:31 12/23/24 06:31 12/23/24 06:31 12/23/24 06:31 12/23/24 06:31 FiO2 30 12/20/24 21:00 Oxygen Flow Rate (L/min) 5 Oxygen Delivery Method Mechanical Ventilator Weight: 187 lb 9.814 oz Body Mass Index (BMI) 36.6 Intake & Output: Intake and Output for Last 24 Hours 12/21/24 12/22/24 12/23/24 23:59 23:59 23:59 Intake Total 2652.50 / 2652.50 1787.5 / 1932.5 340 / 340 Output Total 0 / 0 400 / 400 100 / 100 Balance 2652.50 / 2652.50 1387.5 / 1532.5 240 / 240 Lab / Micro Data 12/22/24 04:00 12/22/24 04:00 Micro: Microbiology 12/20/24 20:06 Sputum, Tracheal Aspirate Gram Stain - Final 12/20/24 20:06 Sputum, Tracheal Aspirate Respiratory Culture - Preliminary Gram negative lyn Gram negative lyn#2 12/21/24 00:35 Gastric Fluid/Contents Gastric Occult Blood - Final Occult Blood Positive 12/21/24 00:35 Stool Stool Occult Blood (LONG) - Final Occult Blood Positive Physical Exam Narrative Seen and examined. Discussed with patient's mother near the bedside Heart rate is controlled, 76/min. BP 137/97. Patient on home ventilator Physical exam General: Awake. Orientation/alertness cannot be ascertained, CP HEENT: Chronic facial edema/swelling. Atraumatic, PERRLA, EOMI, Normocephalic. Oral: Protruding tongue/fissure of CP Neck: Short and wide neck. Tracheostomy. Chest wall/Lungs: On ventilator, air entry diminished in bilateral lung bases. Cardiovascular: Regular rate and rhythm, Normal S1,S2, No M/G/R Abdomen: Bowel Sounds sluggish. Buttonhole PEG tube. Large herniated colon in the colostomy bag : Accu-Chek before meals and at bedtime with Humalog sliding scale coverage and hypoglycemia protocol. Incontinent. No renal angle tenderness. No suprapubic tenderness. Extremities: No edema, Capillary Refill Less than 3 Seconds Skin: No rashes, No breakdown Musculoskeletal: Chronic contracture of knees ankle and hip joints and upper extremity joints. Neurological: Baseline mental status. Noncommunicative/nonverbal Psych/Mental Status: Opens eyes. Cerebral palsy Assessment & Plan Assessment/Plan (1) Respiratory failure: (2) Aspiration into airway: (3) GI bleed: PLAN: Plan atient is a 44-year-old gentleman with history of cerebral palsy with quadriplegia and chronic respiratory failure vent dependent brought to the emergency department with shortness of breath as well as dark emesis. Imaging studies obtained on admission demonstrated pulmonary edema no focal consolidation 1. Acute on Chronic hypoxic and hypercarbic respiratory failure secondary to Aspiration Event with concern for Aspiration pneumonitis ? Admitted to the intensive care unit. Started on broad-spectrum antibiotic therapy with Zosyn. Patient is vent dependent did continue with home vent settings 12/22: Tracheal aspirate growing gram-negative lyn. Patient has history of Pseudomonas colonization 12/23: Tracheal aspirate pending GNR seems 2 organisms growing. 2. Upper GI bleed ? Patient presented with coffee-ground emesis. Started on PPI subsequently monitoring H&H with plans to transfuse if hemoglobin falls below 7 anemia 12/22: Patient blood pressure dropped yesterday and was given 1 L of Ringer lactate bolus and few few hours of Levophed drip. GI consulted. Hemoglobin 9.2 today. Was decreased from 10.9 to 8.2 g%. 12/23: IV Protonix drip changed to pantoprazole IV Q2 hourly 3. Lactic acidosis ? Secondary to increased work of breathing. Patient did not meet criteria for sepsis 4. Chronic respiratory failure ? Secondary to cerebral palsy patient is vent dependent. Plan is to continue with patient home vent settings well as inpatient 12/22 on ventilator. 5. 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 Seizure disorder ? On phenobarb and gabapentin and Ativan 12/22: Patient is sinus tachycardic. Advised to give phenobarb. As per patient's mother, Ativan makes more groggy and takes long time to recover 12/23: Tachycardia is controlled. Patient on phenobarb. As per the mother, will hold Cardura as it gives rise to low blood pressure and patient is urinating well, not retaining. Watch out diaper for urine output measurement. 7. Chronic dysphagia and herniated colon in the colostomy bag ? Status post PEG tube. Consulted dietitian to recommend tube feeding. As per mother he has herniated colon for 3 to 4 years and surgeon recommend conservative management and high risk for surgery 8. Previous history of VTE ? Patient completed treatment per per guidelines 9. DVT prophylaxis ? Lovenox Microbiology Past 72 Hours 12/20/24 20:06 Sputum, Tracheal Aspirate Gram Stain - Final 12/20/24 20:06 Sputum, Tracheal Aspirate Respiratory Culture - Preliminary Gram negative lyn 12/21/24 00:35 Gastric Fluid/Contents Gastric Occult Blood - Final Occult Blood Positive 12/21/24 00:35 Stool Stool Occult Blood (LONG) - Final Occult Blood Positive Laboratory Results 12/21/24 11:55: Hgb 8.2 L, Hct 25.8 L 12/22/24 04:00: WBC 4.0 L, RBC 3.57 L, Hgb 9.2 L, Hct 29.8 L, MCV 83.5, MCH 25.8 L, MCHC 30.9 L, RDW Std Deviation 52.2 H, RDW Coeff of Emilee 17.3 H, Plt Count 146 L, MPV 10.2, Immature Gran % (Auto) 0.500, Neut % (Auto) 54.1, Lymph % (Auto) 30.1, [place] % (Auto) 10.9 H, Eos % (Auto) 4.1, Baso % (Auto) 0.3, Absolute Neuts (auto) 2.1, Absolute Lymphs (auto) 1.19, Nucleated RBC % 0, Sodium 140, Potassium 3.7, Chloride 104, Carbon Dioxide 27.6, Anion Gap 8, BUN 8, Creatinine 0.34 L, Estim Creat Clear Calc 256.37 H, Est GFR (MDRD) Non-Af 147, BUN/Creatinine Ratio 24.2 H, Glucose 77, Calcium 7.9, Phosphorus 3.5, Magnesium 2.0 Charges/Coding Visit Charges Inpatient E&M: 15444 [facility] L3
[2024-12-23] MEDS: Chlorhexidine 15 ML PO (09:39)
[2024-12-23] MEDS: Pantoprazole Sodium 40 MG in 0.9% Normal Saline (100mL MB+) 100 ML 300 MG IV (09:40)
[2024-12-23] MEDS: MONTELUKAST 4 MG PO (09:41)
[2024-12-23 10:03] LABS: Hematocrit 28.9 % (40-54); Hemoglobin 9.1 g/dL (13.0-16.5); Immature Granulocytes Count 0.020 X10^3/uL (0.0-0.0); Mean Corp Hgb Conc 31.5 g/dL (32-36); Mean Corpuscular Volume 83.3 fL (80-94); Mean Platelet Vol. 9.6 fl (6.2-12.0); NRBC Flagged by Analyzer 0 % (0-5); Platelet Count 128 K/mm3 (150-450); RBC Distribution Width CV 17.5 % (11.6-14.6); RBC Distribution Width SD 52.4 fl (35.1-43.9); Red Blood Count 3.47 M/mm3 (4.6-6.2); White Blood Count 4.2 K/mm3 (4.4-11.0)
[2024-12-23 10:23] LABS: Anion Gap 9 (5-15); BUN 9 mg/dL (4-19); BUN/Creat Ratio 28.8 RATIO (10-20); Calcium,Total 8.2 mg/dL (7.6-11.0); Carbon Dioxide 27.1 mmol/L (21.0-32.0); Chloride 103 mmol/L (98-108); Estimated Creatinine Clearance 290.55 ml/min (50-250); Glucose 95 mg/dL (70-99); Potassium 2.9 mmol/L (3.3-5.1)
--- NOTE | 2024-12-23 10:46 | PCM.DC ---
Discharge Instructions DC O2, CPAP, BIPAP needs Home O2 Discharge instructions: Yes Type of respiratory needs?: Oxygen Oxygen frequency: Continuous Continuous oxygen liters per minute: home vent setting Follow Up Care Test Results: Test results from this visit will be discussed in further detail at your follow-up appointment, if applicable. Discharge Plan Admission Admit Date/Time: 12/20/24 20:15 Attending Provider: Lefty Jordan Primary Care Provider: Timmy Conn Consulting Providers: Tania Randle; Michael Posadas; Lefty Jordan; Stefan Gregory; Aby Rao; Alejandrina Smith; Sarah Grajeda Discharge Orders/Prescriptions Prescriptions: New cefdinir 250 mg/5 mL suspension for reconstitution 300 mg feeding tube BID 5 Days Qty: 60 0RF Continued albuterol sulfate 2.5 mg /3 mL (0.083 %) solution for nebulization 2.5 mg inhalation Q4H PRN (Reason: Sob &/Or Wheezing) cetirizine 1 mg/mL solution 10 mg feeding tube 1600 Qty: 480 11RF guaifenesin 200 mg/5 mL liquid 2 mg feeding tube 0830 Patient Comments: mom states giving 0.25ml to help with mucus plugs at 9am Ensure Original 0.04-1.05 gram-kcal/mL liquid 1,000 ml PO QDAY Rx Instructions: continuous g-tube (DME) oxygen concentrator See Rx Instructions .Route .MEDSUPPLY Qty: 1 0RF Rx Instructions: 1 dose MEDSUPPLY; As directed to maintain oxygen saturations of 89-92% metoclopramide HCl 5 mg/5 mL solution 10 mg feeding tube 0830,1600,2100 phenobarbital 20 MG/5 ML elixir 60 mg G-tube 0830,2100 Cough Assist 1 dose .Route .MEDSUPPLY Rx Instructions: Inspiratory and Expiratory times of 20-40 seconds with a 1-2 second pause. gabapentin 250 MG/5 ML solution 500 mg G-tube 0000,0600,1200,1800 Patient Comments: PER PT HOME MED LIST: GABAPENTIN DOSING -IF MO'S HEART RATE IS LOW I DON'T ALWAYS GIVE THE WHOLE 10ML GABAPENTIN DOSE MY GUIDES ARE: PULSE <50: I MIGHT WAIT 1 HOUR FOR HIM TO BE MORE AWAKE. GIVE 4 ML PULSE IN THE 50'S: GIVE 5ML OR 6 ML PULSE IN THE 60'S: GIVE 6ML TO 7ML PULSE 69>: GIVE THE WHOLE 10ML cholecalciferol (vitamin D3) 10 mcg/mL (400 unit/mL) drops 15 mcg feeding tube 0830 alum-mag hydroxide-simeth 200-200-20 mg/5 mL suspension 5 ml PO 0000,0600,1200,1800 PRN (Reason: ANTACID) acetaminophen 650 mg/20.3 mL suspension 650 mg feeding tube 0000,0600,1200,1800 PRN (Reason: PAIN ) baclofen 20 mg tablet 20 mg feeding tube Q6H Patient Comments: gets compounded suspension from [facility]. ondansetron 4 mg tablet,disintegrating 4 mg PO Q8H PRN (Reason: NAUSEA/VOMITING) Qty: 30 0RF ipratropium-albuterol 0.5 mg-3 mg(2.5 mg base)/3 mL solution for nebulization 3 ml inhalation Q4H PRN (Reason: SOB &/OR WHEEZING) esomeprazole magnesium [Nexium Packet] [address] for susp in packet 40 mg G-tube BID lorazepam [Lorazepam Intensol] 2 mg/mL concentrate 2 mg feeding tube DAILY PRN (Reason: agitation) testosterone [AndroGel] 20.25 mg/1.25 gram (1.62 %) gel in metered-dose pump 1 pump topical QODAY Rx Instructions: apply 1 pump amount over max area of ONE upper arm and shoulder plecanatide 3 mg tablet 3 mg GT QODAY montelukast [Singulair] 4 mg granules in packet 4 mg PO DAILY Qty: 90 3RF Held doxazosin 2 mg tablet 2 mg GT 0830 Hold Instructions: Hold because of hypotension Referrals / Follow Up: Yovanny Moreira DO [Med Staff - Active Staff, Pulmonary Medicine] - Within 1 Month Timmy Conn MD [Primary Care Provider, Family Practice] Sarah Grajeda PA [Med Staff - Adv Practice Prof, Gastroenterology] - Within 1 Month Disposition Disposition (needs filled in before D/C Order can be placed): Home Health Service
--- NOTE | 2024-12-23 10:46 | DCINST_ITS ---
Discharge Instructions
[2024-12-23] MEDS: FLU VACCINE 2025-26(6MOS UP) 45 MCG/0.5 ML SYRINGE IM (12:10)
[2024-12-23] MEDS: Potassium Chloride 10mEq/100mL 10 MEQ/100 ML IV.SOLN. 100 MEQ IV BOLUS ×4 (12:11→15:11)
--- NOTE | 2024-12-23 13:55 | PCM.DC.SUM ---
Providers Date of Admission: 12/20/24 Date of Discharge: 12/23/24 Primary Care Physician: Dr. Timmy Conn MD Consultations 12/20/24 21:37 Consult: Gastroenterology Routine Consulting Provider: [facility] Reason for Consult: ? GI bleed EMERGENT Consult: No Notified: Yes Date Notified: 12/20/24 Time Notified: 20:17 Method of Notification: Text Consult: File Drawer Finisher / Pulmonary Medicine Routine Consulting Provider: Intensivists/Pulmonary Med Reason for Consult: Acute on Chronic Resp Failure, Aspiration, ? GI bleed EMERGENT Consult: No Notified: Yes Date Notified: 12/21/24 Time Notified: 05:19 Method of Notification: Text Consult: Onc/Wound/general assistant Routine Comment: Reason for Consult:: Ostomy care Reason For Visit: ACUTE ON CHRONIC RESP FAILURE ASPIRATION Diagnosis Discharge Diagnosis (1) Respiratory failure: Status: Acute Code(s): J96.90 - Respiratory failure, unspecified, unspecified whether with hypoxia or hypercapnia (2) Aspiration into airway: Status: Acute Code(s): T17.908A - Unspecified foreign body in respiratory tract, part unspecified causing other injury, initial encounter (3) GI bleed: Status: Acute Code(s): K92.2 - Gastrointestinal hemorrhage, unspecified Plan atient is a 44-year-old gentleman with history of cerebral palsy with quadriplegia and chronic respiratory failure vent dependent brought to the emergency department with shortness of breath as well as dark emesis. Imaging studies obtained on admission demonstrated pulmonary edema no focal consolidation 1. Acute on Chronic hypoxic and hypercarbic respiratory failure secondary to Aspiration Event with concern for Aspiration pneumonitis ? Admitted to the intensive care unit. Started on broad-spectrum antibiotic therapy with Zosyn. Patient is vent dependent did continue with home vent settings 12/22: Tracheal aspirate growing gram-negative lyn. Patient has history of Pseudomonas colonization 12/23: Tracheal aspirate pending GNR seems 2 organisms growing. Tracheal aspirate growing few organisms, Pseudomonas, Proteus. strep group B which most likely is colonization based on the previous history, and culture but questionably said, prescription given for cefdinir 300 mg twice daily for 5 days. Follow-up in pulmonary clinic with Dr. Moreira. 2. Upper GI bleed ? Patient presented with coffee-ground emesis. Started on PPI subsequently monitoring H&H with plans to transfuse if hemoglobin falls below 7 anemia 12/22: Patient blood pressure dropped yesterday and was given 1 L of Ringer lactate bolus and few few hours of Levophed drip. GI consulted. Hemoglobin 9.2 today. Was decreased from 10.9 to 8.2 g%. 12/23: IV Protonix drip changed to pantoprazole IV Q2 hourly. Patient on PPI twice daily at home. Follow-up in GI office 3. Lactic acidosis ? Secondary to increased work of breathing. Patient did not meet criteria for sepsis 4. Chronic respiratory failure ? Secondary to cerebral palsy patient is vent dependent. Plan is to continue with patient home vent settings well as inpatient 12/22 on ventilator. 5. 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 Seizure disorder ? On phenobarb and gabapentin and Ativan 12/22: Patient is sinus tachycardic. Advised to give phenobarb. As per patient's mother, Ativan makes more groggy and takes long time to recover 12/23: Tachycardia is controlled. Patient on phenobarb. As per the mother, will hold Cardura as it gives rise to low blood pressure and patient is urinating well, not retaining. Watch out diaper for urine output measurement. 7. Chronic dysphagia and herniated colon in the colostomy bag ? Status post PEG tube. Consulted dietitian to recommend tube feeding. As per mother he has herniated colon for 3 to 4 years and surgeon recommend conservative management and high risk for surgery 8. Previous history of VTE ? Patient completed treatment per per guidelines 9. DVT prophylaxis ? Lovenox Discharge medication reconciliation done. Discharge follow-up instructions completed. Discharge process discussed with the patient and all questions were answered to patient's satisfaction. Follow with PCP in 1 to 2 weeks Total time spent, exact 35 minutes on discharge meds reconciliation, examination, coordination of care with nurses and ancillary staff, review of imaging and blood test and discussion with the patient on follow-up instructions. Microbiology Past 72 Hours 12/20/24 20:06 Sputum, Tracheal Aspirate Gram Stain - Final 12/20/24 20:06 Sputum, Tracheal Aspirate Respiratory Culture - Preliminary Gram negative lyn 12/21/24 00:35 Gastric Fluid/Contents Gastric Occult Blood - Final Occult Blood Positive 12/21/24 00:35 Stool Stool Occult Blood (LONG) - Final Occult Blood Positive Laboratory Results 12/21/24 11:55: Hgb 8.2 L, Hct 25.8 L 12/22/24 04:00: WBC 4.0 L, RBC 3.57 L, Hgb 9.2 L, Hct 29.8 L, MCV 83.5, MCH 25.8 L, MCHC 30.9 L, RDW Std Deviation 52.2 H, RDW Coeff of Emilee 17.3 H, Plt Count 146 L, MPV 10.2, Immature Gran % (Auto) 0.500, Neut % (Auto) 54.1, Lymph % (Auto) 30.1, [place] % (Auto) 10.9 H, Eos % (Auto) 4.1, Baso % (Auto) 0.3, Absolute Neuts (auto) 2.1, Absolute Lymphs (auto) 1.19, Nucleated RBC % 0, Sodium 140, Potassium 3.7, Chloride 104, Carbon Dioxide 27.6, Anion Gap 8, BUN 8, Creatinine 0.34 L, Estim Creat Clear Calc 256.37 H, Est GFR (MDRD) Non-Af 147, BUN/Creatinine Ratio 24.2 H, Glucose 77, Calcium 7.9, Phosphorus 3.5, Magnesium 2.0 Medications at Discharge Home Medications phenobarbital 20 mg/5 mL (4 mg/mL) oral elixir 60 mg G-tube 0830,2100 SEIZURES 02/19/17 metoclopramide HCl 5 mg/5 mL oral solution 10 mg feeding tube 0830,1600,2100 STOMACH 09/16/18 Cough Assist 1 dose .Route .MEDSUPPLY assist in clearing secretions 12/25/18 gabapentin 250 mg/5 mL oral solution 500 mg G-tube 0000,0600,1200,1800 SEIZURES 09/26/19 albuterol sulfate 2.5 mg/3 mL (0.083 %) solution for nebulization 2.5 mg inhalation Q4H PRN Sob &/Or Wheezing 11/27/20 doxazosin 2 mg tablet 2 mg PO 0830 BLOOD PRESSURE 11/30/21 Held on 12/23/24. Instructions: Hold because of hypotension cholecalciferol (vitamin D3) 10 mcg/mL (400 unit/mL) oral drops 15 mcg feeding tube 0830 SUPPLEMENT 01/31/23 acetaminophen 650 mg/20.3 mL oral suspension 650 mg feeding tube 0000,0600,1200,1800 PRN PAIN 10/24/22 aluminum-mag hydroxide-simethicone 200 mg-200 mg-20 mg/5 mL oral susp 5 ml PO 0000,0600,1200,1800 PRN ANTACID 10/24/22 baclofen 20 mg tablet 20 mg feeding tube Q6H MUSCLE SPASMS 12/10/22 ondansetron 4 mg disintegrating tablet 4 mg PO Q8H PRN NAUSEA/VOMITING #30 tabs 12/13/22 esomeprazole magnesium 40 mg granules delayed release for susp (Nexium Packet) 40 mg G-tube BID ACID REFLUX 03/23/23 ipratropium 0.5 mg-albuterol 3 mg (2.5 mg base)/3 mL nebulization soln 3 ml inhalation Q4H PRN SOB &/OR WHEEZING 03/23/23 cetirizine 1 mg/mL oral solution 10 mg (10 mL) feeding tube 1600 ALLERGIES #480 mL 09/30/23 lorazepam 2 mg/mL oral concentrate (Lorazepam Intensol) 2 mg feeding tube DAILY PRN agitation 01/04/24 food supplemt, lactose-reduced 0.04 gram-1.05 kcal/mL oral liquid (Ensure Original) 1,000 ml PO QDAY 04/04/24 guaifenesin 200 mg/5 mL oral liquid 2 mg feeding tube 0830 COUGH/CONGESTION 04/04/24 oxygen concentrator #1 ea 09/29/24 montelukast 4 mg oral granules in packet (Singulair) 4 mg PO DAILY ASTHMA #90 ea 10/18/24 plecanatide 3 mg tablet 3 mg G-tube QODAY BOWELS 12/20/24 testosterone (AndroGel) 1 pump topical QODAY 12/20/24 cefdinir 250 mg/5 mL oral suspension 300 mg (6 mL) feeding tube BID 5 days #60 mL 12/23/24 Physical Exam Narrative Please see progress note of the same date. Weight / BMI Weight Weight: 187 lb 9.814 oz Body Mass Index (BMI) 36.6 ABG / Lab / Microbiology Data 12/23/24 09:40 12/23/24 09:40 Laboratory: Laboratory Results - last 24 hr 12/23/24 09:40: WBC 4.2 L, RBC 3.47 L, Hgb 9.1 L, Hct 28.9 L, MCV 83.3, MCH 26.2 L, MCHC 31.5 L, RDW Std Deviation 52.4 H, RDW Coeff of Emilee 17.5 H, Plt Count 128 L, MPV 9.6, Immature Gran % (Auto) 0.500, Neut % (Auto) 57.2, Lymph % (Auto) 26.7, [place] % (Auto) 11.8 H, Eos % (Auto) 3.6, Baso % (Auto) 0.2, Absolute Neuts (auto) 2.4, Absolute Lymphs (auto) 1.11, Nucleated RBC % 0, Sodium 138, Potassium 2.9 L, Chloride 103, Carbon Dioxide 27.1, Anion Gap 9, BUN 9, Creatinine 0.30 L, Estim Creat Clear Calc 290.55 H, Est GFR (MDRD) Non-Af 153, BUN/Creatinine Ratio 28.8 H, Glucose 95, Calcium 8.2 Microbiology: Microbiology 12/20/24 20:06 Sputum, Tracheal Aspirate Gram Stain - Final 12/20/24 20:06 Sputum, Tracheal Aspirate Respiratory Culture - Preliminary Pseudomonas aeruginosa Proteus mirabilis Streptococcus agalactiae (B) 12/21/24 00:35 Gastric Fluid/Contents Gastric Occult Blood - Final Occult Blood Positive 12/21/24 00:35 Stool Stool Occult Blood (LONG) - Final Occult Blood Positive D/C Instructions DC O2, CPAP, BIPAP Needs Home O2 Discharge instructions: Yes Type of respiratory needs?: Oxygen Oxygen frequency: Continuous Continuous oxygen liters per minute: home vent setting DC home with Oxygen: Yes Home O2 MD Review: I have reviewed the oxygen testing, and the patient qualifies for home oxygen equipment and portability. The patient is mobile in the home and the community. Meaningful Use Info Meaningful Use Meaningful Use Diagnoses (Choose all that apply): None applicable Discharge Plan Admission Admit Date/Time: 12/20/24 20:15 Attending Provider: Lefty Jordan Primary Care Provider: Timmy Conn Consulting Providers: Tania Randle; Michael Posadas; Lefty Jordan; Stefan Gregory; Aby Rao; Alejandrina Smith; Sarah Grajeda Discharge Orders/Prescriptions Prescriptions: New cefdinir 250 mg/5 mL suspension for reconstitution 300 mg feeding tube BID 5 Days Qty: 60 0RF Continued albuterol sulfate 2.5 mg /3 mL (0.083 %) solution for nebulization 2.5 mg inhalation Q4H PRN (Reason: Sob &/Or Wheezing) cetirizine 1 mg/mL solution 10 mg feeding tube 1600 Qty: 480 11RF guaifenesin 200 mg/5 mL liquid 2 mg feeding tube 0830 Patient Comments: mom states giving 0.25ml to help with mucus plugs at 9am Ensure Original 0.04-1.05 gram-kcal/mL liquid 1,000 ml PO QDAY Rx Instructions: continuous g-tube (DME) oxygen concentrator See Rx Instructions .Route .MEDSUPPLY Qty: 1 0RF Rx Instructions: 1 dose MEDSUPPLY; As directed to maintain oxygen saturations of 89-92% metoclopramide HCl 5 mg/5 mL solution 10 mg feeding tube 0830,1600,2100 phenobarbital 20 MG/5 ML elixir 60 mg G-tube 0830,2100 Cough Assist 1 dose .Route .MEDSUPPLY Rx Instructions: Inspiratory and Expiratory times of 20-40 seconds with a 1-2 second pause. gabapentin 250 MG/5 ML solution 500 mg G-tube 0000,0600,1200,1800 Patient Comments: PER PT HOME MED LIST: GABAPENTIN DOSING -IF MO'S HEART RATE IS LOW I DON'T ALWAYS GIVE THE WHOLE 10ML GABAPENTIN DOSE MY GUIDES ARE: PULSE <50: I MIGHT WAIT 1 HOUR FOR HIM TO BE MORE AWAKE. GIVE 4 ML PULSE IN THE 50'S: GIVE 5ML OR 6 ML PULSE IN THE 60'S: GIVE 6ML TO 7ML PULSE 69>: GIVE THE WHOLE 10ML cholecalciferol (vitamin D3) 10 mcg/mL (400 unit/mL) drops 15 mcg feeding tube 0830 alum-mag hydroxide-simeth 200-200-20 mg/5 mL suspension 5 ml PO 0000,0600,1200,1800 PRN (Reason: ANTACID) acetaminophen 650 mg/20.3 mL suspension 650 mg feeding tube 0000,0600,1200,1800 PRN (Reason: PAIN ) baclofen 20 mg tablet 20 mg feeding tube Q6H Patient Comments: gets compounded suspension from [facility]. ondansetron 4 mg tablet,disintegrating 4 mg PO Q8H PRN (Reason: NAUSEA/VOMITING) Qty: 30 0RF ipratropium-albuterol 0.5 mg-3 mg(2.5 mg base)/3 mL solution for nebulization 3 ml inhalation Q4H PRN (Reason: SOB &/OR WHEEZING) esomeprazole magnesium [Nexium Packet] [address] for susp in packet 40 mg G-tube BID lorazepam [Lorazepam Intensol] 2 mg/mL concentrate 2 mg feeding tube DAILY PRN (Reason: agitation) testosterone [AndroGel] 20.25 mg/1.25 gram (1.62 %) gel in metered-dose pump 1 pump topical QODAY Rx Instructions: apply 1 pump amount over max area of ONE upper arm and shoulder plecanatide 3 mg tablet 3 mg GT QODAY montelukast [Singulair] 4 mg granules in packet 4 mg PO DAILY Qty: 90 3RF Held doxazosin 2 mg tablet 2 mg GT 0830 Hold Instructions: Hold because of hypotension Referrals / Follow Up: Yovanny Moreira DO [Med Staff - Active Staff, Pulmonary Medicine] - Within 1 Month Timmy Conn MD [Primary Care Provider, Family Practice] Sarah Grajeda PA [Med Staff - Adv Practice Prof, Gastroenterology] - Within 1 Month Disposition Disposition (needs filled in before D/C Order can be placed): Home Health Service
== END 2024-12-23 20:00 | disposition home health service (06) | DRG 208 ==
LOC: ED 20:28 → ICU 20:56
PROVIDERS: Internal Medicine; Internal Medicine Critical Care Medicine; Internal Medicine Gastroenterology; Admitting Provider Family Medicine; Emergency Provider Emergency Medicine; PCP Family Medicine; Visit Provider Internal Medicine
PROC: 0DJ08ZZ Inspection of Upper Intestinal Tract, Via Natural or Artificial Opening Endoscopic (ICD-10-PCS; CPT 43235; principal; 2024-12-21 14:55)
DX: J96.21 Acute and chronic respiratory failure with hypoxia (principal); J69.0 Pneumonitis due to inhalation of food and vomit; G80.0 Spastic quadriplegic cerebral palsy; Z99.11 Dependence on respirator [ventilator] status; E87.20 Acidosis, unspecified; D62 Acute posthemorrhagic anemia; G40.909 Epilepsy, unspecified, not intractable, without status epilepticus; Z93.2 Ileostomy status; Z93.0 Tracheostomy status; J96.22 Acute and chronic respiratory failure with hypercapnia; K29.00 Acute gastritis without bleeding; J30.9 Allergic rhinitis, unspecified; E29.1 Testicular hypofunction; K21.00 Gastro-esophageal reflux disease with esophagitis, without bleeding; Z93.3 Colostomy status; Z93.1 Gastrostomy status; Z86.718 Personal history of other venous thrombosis and embolism; Z86.711 Personal history of pulmonary embolism; Z79.51 Long term (current) use of inhaled steroids; Z79.899 Other long term (current) drug therapy
CPT/HCPCS: 31720; 36591; 71045; 80048; 80053; 82271; 82274; 83605; 83735; 84100; 85014; 85018; 85025; 86850; 86900; 86901; 87070; 87077; 87184; 87186; 87205; 93005; 94640; 97802; 99285; J2997; A4216

== ENCOUNTER → 2025-01-01 | Outpatient (CLI) | payer MEDICARE, MEDICAID, SELFPAY ==
[2025-01-01 10:34] LABS: Hematocrit 31.0 % (40-54); Hemoglobin 9.5 g/dL (13.0-16.5); Immature Granulocytes Count 0.020 X10^3/uL (0.0-0.0); Mean Corp Hgb Conc 30.6 g/dL (32-36); Mean Corpuscular Volume 85.6 fL (80-94); Mean Platelet Vol. 10.9 fl (6.2-12.0); NRBC Flagged by Analyzer 0 % (0-5); Platelet Count 143 K/mm3 (150-450); RBC Distribution Width CV 18.0 % (11.6-14.6); RBC Distribution Width SD 56.3 fl (35.1-43.9); Red Blood Count 3.62 M/mm3 (4.6-6.2); White Blood Count 4.6 K/mm3 (4.4-11.0)
[2025-01-01 11:11] LABS: Anion Gap 10 (5-15); BUN 9 mg/dL (4-19); BUN/Creat Ratio 31.0 RATIO (10-20); Calcium,Total 8.8 mg/dL (7.6-11.0); Carbon Dioxide 27.3 mmol/L (21.0-32.0); Chloride 101 mmol/L (98-108); Glucose 100 mg/dL (70-99); Potassium 4.2 mmol/L (3.3-5.1)
== END | disposition home or self-care (01) ==
LOC: LABSPEC 10:17
PROVIDERS: PCP Family Medicine; Referring Provider Family Medicine; Visit Provider Family Medicine
DX: E87.6 Hypokalemia (principal)
CPT/HCPCS: 80048; 85025

== ENCOUNTER → 2025-01-09 | Outpatient (CLI) | payer MEDICARE, MEDICAID, SELFPAY ==
[2025-01-09 09:46] LABS: Hematocrit 32.5 % (40-54); Hemoglobin 9.9 g/dL (13.0-16.5); Immature Granulocytes Count 0.020 X10^3/uL (0.0-0.0); Mean Corp Hgb Conc 30.5 g/dL (32-36); Mean Corpuscular Volume 85.1 fL (80-94); Mean Platelet Vol. 11.1 fl (6.2-12.0); NRBC Flagged by Analyzer 0 % (0-5); Platelet Count 135 K/mm3 (150-450); RBC Distribution Width CV 18.3 % (11.6-14.6); RBC Distribution Width SD 56.5 fl (35.1-43.9); Red Blood Count 3.82 M/mm3 (4.6-6.2); White Blood Count 3.7 K/mm3 (4.4-11.0)
[2025-01-09 10:16] LABS: AST(SGOT) 7 U/L (<=37); Alanine Aminotransfer ALT/SGPT 14 U/L (<=46); Albumin, Serum 3.4 g/dL (3.5-5.0); Alkaline Phosphatase 173 U/L (40-129); Anion Gap 8 (5-15); BUN 9 mg/dL (4-19); BUN/Creat Ratio 35.5 RATIO (10-20); Calcium,Total 8.7 mg/dL (7.6-11.0); Carbon Dioxide 29.1 mmol/L (21.0-32.0); Chloride 101 mmol/L (98-108); Ferritin 51 ng/mL (37-417); Globulin 4.4 g/dL (2.2-4.2); Glucose 82 mg/dL (70-99); Iron 65 ug/dL (65-175); Iron Binding Capacity,Total 280 ug/dL (250-450); Iron Binding Capacity,Unsat 215 ug/dL (228-428); Potassium 4.6 mmol/L (3.3-5.1)
== END | disposition home or self-care (01) ==
LOC: LABSPEC 09:32
PROVIDERS: PCP Family Medicine; Referring Provider Family Medicine; Visit Provider Family Medicine
DX: D50.0 Iron deficiency anemia secondary to blood loss (chronic) (principal)
CPT/HCPCS: 80053; 82728; 83540; 83550; 85025

== ENCOUNTER 2025-01-29 08:49 | Outpatient (RCR) | payer MEDICARE, MEDICAID, SELFPAY ==
[2025-01-29 09:17] LABS: Hematocrit 31.2 % (40-54); Hemoglobin 9.6 g/dL (13.0-16.5); Immature Granulocytes Count 0.020 X10^3/uL (0.0-0.0); Mean Corp Hgb Conc 30.8 g/dL (32-36); Mean Corpuscular Volume 85.7 fL (80-94); Mean Platelet Vol. 10.9 fl (6.2-12.0); NRBC Flagged by Analyzer 0 % (0-5); Platelet Count 130 K/mm3 (150-450); RBC Distribution Width CV 19.3 % (11.6-14.6); RBC Distribution Width SD 59.8 fl (35.1-43.9); Red Blood Count 3.64 M/mm3 (4.6-6.2); White Blood Count 3.9 K/mm3 (4.4-11.0)
[2025-01-29 09:36] LABS: Anion Gap 8 (5-15); BUN 10 mg/dL (4-19); BUN/Creat Ratio 34.8 RATIO (10-20); Calcium,Total 9.0 mg/dL (7.6-11.0); Carbon Dioxide 30.7 mmol/L (21.0-32.0); Chloride 101 mmol/L (98-108); Glucose 72 mg/dL (70-99); Potassium 4.3 mmol/L (3.3-5.1)
== END 2025-02-21 23:59 ==
LOC: LABSPEC 08:49
PROVIDERS: PCP Family Medicine; Referring Provider Internal Medicine Endocrinology, Diabetes & Metabolism; Visit Provider Family Medicine
DX: D64.9 Anemia, unspecified (principal); E87.6 Hypokalemia
CPT/HCPCS: 80048; 85025

== ENCOUNTER 2025-02-16 06:49 | Inpatient (IN) | payer MEDICARE, MEDICAID, SELFPAY ==
[2025-02-16] VITALS (32 sets, daily range): BP systolic 103–153; BP diastolic 57–114; PULSE 95–156; RESP 14–232; TEMP 36.3–38.9; O2SAT 88–100; BMI 37.8; BMI 37.3
--- NOTE | 2025-02-16 06:55 | CPS ---
Pt came into ER in respiratory distress and Tachy. Pt is on own vent, GI=646, PS 10, sens 3.0, I time=1.8, 10lplm O2 bled in. Suctioned large amounts of light yellow to clear thin secretions x 2, sx'd orally for white foamy secretions. Vent measurements were QV=956, RR 26, MP 10, Peep 7, I:E ratio 1:2. had to increase O2 to 12lpm d/t Sat in high 80's.
--- NOTE | 2025-02-16 07:00 | CT_ITS ---
PROCEDURE: ABDOMEN/PELVIS W IV CONT ONLY 02/16/2025 REASON FOR EXAM: Clinical history abdominal distention TECHNIQUE: Procedure Code: [id number] Modality: CT Procedure: ABDOMEN/PELVIS W IV CONT ONLY Coronal and Sagittal reconstruction series were provided. CONTRAST: Isovue-300 VOLUME: 96 mL One or more dose reduction techniques were used (e.g., Automated exposure control, adjustment of the mA and/or kV according to patient size, use of iterative reconstruction technique. RADIATION DOSE SUMMARY: DLP: 1232.41 mGycm COMPARISON: CT abdomen/pelvis 01/07/2024 FINDINGS: Lower chest: Small left pleural effusion and/or pleural thickening. Dependent atelectasis. Liver: Normal size. No enhancing lesion. Gallbladder and biliary ducts: Cholecystectomy. Normal caliber intrahepatic and common bile ducts. Pancreas:Atrophic. No ductal dilatation or mass. No peripancreatic fluid. Spleen: Unremarkable. 1.2 x 1.2 cm splenule inferomedial to the spleen. Adrenal glands: Unremarkable. Kidneys and ureters: Mildly atrophic appearing kidneys with cortical thinning. No nephroureterolithiasis or hydroureteronephrosis. Less than cm hypodensity too small to further characterize but likely reflecting a renal cyst. Urinary bladder: The urinary bladder is collapsed around a Augustin catheter. GI: A percutaneous enteric gastric tube extends to the stomach. The stomach is filled with gas and partially distended. Normal caliber small bowel and large bowel.No evidence for bowel obstruction. Partial left colectomy. Chronic wall thickening and distention of the rectal pouch. Appendix: Not visualized. Peritoneum: No ascites. No pneumoperitoneum. Redemonstrated large parastomal left lower abdominal hernia containing bowel and mesenteric fat. Small fat containing umbilical hernia. Large fat containing right inguinal hernia. Lymph nodes: A few scattered nonspecific subcentimeter shotty mesenteric lymph nodes. No lymphadenopathy. Vasculature: No abdominal aortic aneurysm. Reproductive organs: Unremarkable Musculoskeletal and soft tissues: Diffuse demineralization of the osseous structures. No aggressive osseous lesions. Lumbar levoscoliosis. Degenerative changes of the visualized spine and bilateral hip joints with dysplastic appearing hips.Diffuse mild soft tissue edema. Diffuse atrophy of the visualized abdominopelvic muscles. Redemonstrated retained catheter and scarring over the right lower quadrant abdominal wall. CT/Abdomen/Pelvis W IV Cont ONLY IMPRESSION: 1. No evidence of bowel obstruction. 2. Redemonstrated parastomal herniation of bowel. 3. Unchanged partial left colectomy with chronic wall thickening and distention of the rectal pouch. 4. Percutaneous enteric gastric tube extends to the stomach. 5. Additional findings as discussed in the body of the report. Reading Location: [id number]
--- NOTE | 2025-02-16 07:01 | EKG12_ITS ---
Test Reason : SOB Blood Pressure : */* mmHG Vent. Rate : 111 BPM Atrial Rate : 111 BPM P-R Int : 144 ms QRS Dur : 96 ms QT Int : 350 ms P-R-T Axes : 49 -6 68 degrees QTcB Int : 476 ms Sinus tachycardia with Premature atrial complexes Incomplete right bundle branch block ST & T wave abnormality, consider anterior ischemia Abnormal ECG Confirmed by Michael Sorenson ([id number]), international editorial producer JOSEMANUEL TORRES ([id number]) on 02/23/2025 7:11:56 AM Referred By: Confirmed By: Michael Sorenson
[2025-02-16] MEDS: 0.9% Normal Saline (1000mL) 1,000 ML 999 ML IV ×3 (07:15→12:39)
--- NOTE | 2025-02-16 07:25 | EX.ED.DYSGE1 ---
HPI History of Present Illness Chief Complaint: Shortness of Breath Narrative Narrative: Patient is a 45-year-old male past medical history of cerebral palsy, aspiration pneumonia, GERD, thrombocytopenia who presented to the emergency department with a chief complaint of increased spitting secretions. According to the patient's family members at bedside they note that he had a good day yesterday and his caregiver that is with him through the night woke the mother up around 4:30 AM with elevated heart rate and noted to be spitting a significant mount of secretions. She states that they tried to suction him and noted that they did not suction many secretions out. She did note that he was spitting saliva out significantly and she tried to release air from his G-tube and released a significant amount of air from this. She states that he is having good output from his colostomy [facility] Medical History Acute aspiration pneumonitis Hypogonadism in male Osteoporosis History of aspiration pneumonia Tachycardia Aspiration pneumonia Anxiety GERD (gastroesophageal reflux disease) Non-smoker On home oxygen therapy Pulmonary embolism Seizures Cerebral palsy Chronic respiratory failure with hypoxia Pseudomonas pneumonia Colostomy prolapse Cerebral palsy Acute dyspnea Anemia in chronic illness Upper GI bleeding (04/2020) Thrombocytopenia Pulmonary embolism on left (06/14/19) Iron deficiency anemia Obesity Tracheostomy in place Debility Chronic respiratory failure Edema Nonrheumatic mitral valve prolapse Redundant colon History of seizure disorder Home Medications ?Medication ?Instructions ?Recorded ?Last Taken ?Type phenobarbital 20 mg/5 mL (4 mg/mL) 60 mg G-tube 0830,2100 SEIZURES 02/19/17 09/03/24 History oral elixir metoclopramide HCl 5 mg/5 mL oral 10 mg feeding tube 0830,1600,2100 09/16/18 09/03/24 History solution STOMACH Cough Assist 1 dose .Route .MEDSUPPLY assist in 12/25/18 09/03/24 History clearing secretions gabapentin 250 mg/5 mL oral 500 mg G-tube 0000,0600,1200,1800 09/26/19 09/03/24 History solution SEIZURES albuterol sulfate 2.5 mg/3 mL 2.5 mg inhalation Q4H PRN Sob &/Or 11/27/20 09/03/24 History (0.083 %) solution for nebulization Wheezing doxazosin 2 mg tablet 2 mg PO 0830 BLOOD PRESSURE 10/09/22 07/13/25 History Held on 12/23/24. Instructions: Hold because of hypotension cholecalciferol (vitamin D3) 10 15 mcg feeding tube 0830 SUPPLEMENT 03/24/22 09/03/24 History mcg/mL (400 unit/mL) oral drops acetaminophen 650 mg/20.3 mL oral 650 mg feeding tube 10/24/22 01/04/24 History suspension 0000,0600,1200,1800 PRN PAIN aluminum-mag hydroxide-simethicone 5 ml PO 0000,0600,1200,1800 PRN 10/24/22 09/03/24 History 200 mg-200 mg-20 mg/5 mL oral susp ANTACID baclofen 20 mg tablet 20 mg feeding tube Q6H MUSCLE 12/10/22 09/03/24 History SPASMS ondansetron 4 mg disintegrating 4 mg PO Q8H PRN NAUSEA/VOMITING 12/13/22 Unknown Rx tablet #30 tabs esomeprazole magnesium 40 mg 40 mg G-tube BID ACID REFLUX 03/23/23 09/03/24 History granules delayed release for susp (Nexium Packet) ipratropium 0.5 mg-albuterol 3 mg 3 ml inhalation Q4H PRN SOB &/OR 03/23/23 09/03/24 History (2.5 mg base)/3 mL nebulization WHEEZING soln cetirizine 1 mg/mL oral solution 10 mg (10 mL) feeding tube 1600 09/30/23 09/03/24 Rx ALLERGIES #480 mL lorazepam 2 mg/mL oral concentrate 2 mg feeding tube DAILY PRN 01/04/24 01/03/24 History (Lorazepam Intensol) agitation food supplemt, lactose-reduced 1,000 ml PO QDAY 04/04/24 09/03/24 History 0.04 gram-1.05 kcal/mL oral liquid (Ensure Original) guaifenesin 200 mg/5 mL oral liquid 2 mg feeding tube 0830 04/04/24 09/03/24 History COUGH/CONGESTION oxygen concentrator #1 ea 09/29/24 Unknown Rx montelukast 4 mg oral granules in 4 mg PO DAILY ASTHMA #90 ea 10/18/24 Unknown Rx packet (Singulair) plecanatide 3 mg tablet 3 mg G-tube QODAY BOWELS 12/20/24 Unknown History testosterone (AndroGel) 1 pump topical QODAY 12/20/24 Unknown History cefdinir 250 mg/5 mL oral 300 mg (6 mL) feeding tube BID 5 12/23/24 Unknown Rx suspension days #60 mL Allergy/AdvReac Type Severity Reaction Status Date / Time chlorhexidine Allergy Rash Verified 02/16/25 07:02 cisapride monohydrate (From Allergy Rash Verified 02/16/25 07:02 Propulsid) house dust Allergy NEEDS Verified 02/16/25 07:02 FOLLOW-UP metronidazole (From Flagyl) Allergy Rash Verified 02/16/25 07:02 codeine AdvReac hallucinati Verified 02/16/25 07:02 ons morphine AdvReac Hallucinati Verified 02/16/25 07:02 ons Family History Mother Hepatitis C Hypertension HIV disease CVA (cerebral vascular accident) Liver disease Father H/O heart artery stent CAD (coronary artery disease) Atrial fibrillation Hypertension Esophageal cancer Grandmother Asthma Diverticulitis Diabetes Myocardial infarction Heart disease Surgical History History of eye surgery Heel cord lengthening History of soft tissue release History of open reduction and internal fixation (ORIF) procedure History of gastrostomy tube placement Status post insertion of intrathecal baclofen pump History of colostomy Colostomy in place Social History household members: family housing: house current occupational status: disabled Smoking Status: Never smoker alcohol intake: never substance use type: does not use caffeine: No ROS ROS ED ROS Narrative Review of systems unobtainable from patient secondary to his underlying cerebral palsy therefore acute care caveat applies EXAM Physical Exam Narrative Exam Narrative: General: Patient lying in bed rest comfortably did not appear to be in acute distress Head: Atraumatic, normocephalic Eyes: PERRL bilaterally, EOMI bilaterally, no conjunctival injection noted Neck: Soft, supple, tracheostomy in place Cardiovascular: Patient tachycardic with a regular rhythm Respiratory: Diminished breath sounds bilaterally Abdomen: Soft, distended, colostomy in place Neurological: Patient is at baseline according to family members Skin: Warm, dry, tact no rashes or lesions noted old surgical incisions are well-healed on his abdomen Const Vital Signs: 02/16/25 06:50 02/16/25 06:58 02/16/25 07:05 Temperature 99.3 F H 99.3 F H Temperature Source Axillary Axillary Pulse Rate 146 H 156 H Respiratory Rate 35 H 32 H Blood Pressure 153/114 H 153/114 H Blood Pressure Mean 127 127 Pulse Ox 93 93 Oxygen Delivery Method Trach Collar Trach Collar Trach Collar Oxygen Flow Rate (L/min) 4 4 02/16/25 07:49 02/16/25 08:00 02/16/25 09:00 Temperature 98.5 F 98.3 F 97.4 F L Temperature Source Temporal Temporal Temporal Pulse Rate 122 H 113 H 103 H Respiratory Rate 19 H 15 20 H Blood Pressure 121/83 H 108/74 132/91 H Blood Pressure Mean 95 85 104 Pulse Ox 92 97 95 Oxygen Delivery Method Trach Collar Trach Collar Trach Collar Oxygen Flow Rate (L/min) 15 Sepsis Attestation Possible Source of Sepsis: Pulmonary Sepsis Organ Dysfunction Criteria Present: Lactic Acid > 2 mmol/L MDM MDM MDM Narrative Medical decision making narrative: Patient is a 45-year-old male who presented to the emergency department with a chief complaint of increased spitting secretions abdominal distention. On the differential diagnose includes but not limited to bowel obstruction, pneumonia, viral gastroenteritis. Once workup is obtained reviewed he will be reevaluated. Patient will be given 30 cc/kg based on ideal body weight as he has a BMI of greater than 30 therefore he will be given 2000 mL. Patient's CBC was reviewed and showed a white blood count of 16,000, hemoglobin 0.9, plate count of 474. Patient's arterial blood gas was reviewed showed a pH of 7.38 with a pCO2 of 54.9 pO2 was 31 the sample was dark in nature likely a venous/mixed sample. Patient sodium was 137, potassium normal 4.3, creatinine was 0.55. Patient glucose was 144 anion gap was noted be 20. Patient's lactic acid elevated to 6.9, AST and ALT were 18 and 20 respectively. Patient's urinalysis reviewed and showed no evidence of infection. Patient's chest x-ray was reviewed by myself and by radiology which showed reduced lung volumes bilaterally likely secondary to patient body habitus no radiographic evidence for focal consolidation. Patient CT and pelvis with IV contrast reviewed and showed no evidence of bowel obstruction redemonstration of parastomal herniation of bowel. Unchanged partial left colectomy. Percutaneous G-tube extends to the stomach. Patient was ordered vancomycin and cefepime at 8:39 AM. Although there is no identified source of infection currently Reperfusion assessment was performed at 9:15 AM and he remains normal to hypertensive therefore no indication for vasopressors. Discussed case with hospitalist Dr. Alexandre who accept patient for admission. Patient's family was notified all question concerns answered. Critical care time 45 minutes Lab Data Labs: Laboratory Results - last 24 hr 02/16/25 02/16/25 07:12 07:32 WBC 16.3 H RBC 4.41 L Hgb 11.9 L Hct 37.3 L MCV 84.6 MCH 27.0 MCHC 31.9 L RDW Std Deviation 55.3 H RDW Coeff of [place] 17.9 H Plt Count 474 H MPV 9.6 Immature Gran % (Auto) 0.400 Neut % (Auto) 63.3 Lymph % (Auto) 28.4 [place] % (Auto) 6.6 Eos % (Auto) 1.0 Baso % (Auto) 0.3 Absolute Neuts (auto) 10.3 H Absolute Lymphs (auto) 4.62 H Nucleated RBC % 0 PT 13.5 INR 1.0 APTT 30.1 Sodium 137 Potassium 4.3 Chloride 92 L Carbon Dioxide 25.7 Anion Gap 20 H BUN 12 Creatinine 0.55 L Estim Creat Clear Calc 159.41 Est GFR (MDRD) Non-Af 126 BUN/Creatinine Ratio 22.0 H Glucose 144 H Lactic Acid 6.9 H* Calcium 9.8 Total Bilirubin 0.27 AST 18 ALT 20 Alkaline Phosphatase 229 H Total Protein 9.7 H Albumin 4.3 Globulin 5.4 H Albumin/Globulin Ratio 0.8 L Urine Color Yellow Urine Clarity Clear Urine pH 6.0 Ur Specific [place] 1.015 Urine Protein 15 H Urine Glucose (UA) Normal Urine Ketones Negative Urine Occult Blood Negative Urine Nitrite Negative Urine Bilirubin Negative Urine Urobilinogen Normal Ur Leukocyte Esterase Negative Urine RBC 0 SEEN Urine WBC 0 SEEN Ur Squamous Epith Cells 0 SEEN Urine Bacteria 0 SEEN Urine Mucus 0 SEEN ABG Data ABG results: ABG 02/16/25 09:13 Specimen Type ART Sample Site R Brach pH 7.38 Bicarbonate Actual 32.1 H Total CO2 34 Base Excess 7 H O2 Saturation 57 L O2 % 15.0 ABG pCO2 54.9 H ABG pO2 31 L* Respiration Rate 2 O2 Delivery Device Home Vent Vent Mode SIMV Tidal Volume 350.0 POC PEEP 8 Crit Call To/Read Back Yes Radiography Diagnostic Testing: Clinical Impression(s) from Imaging Studies Abdomen/Pelvis CT 02/16/25 07:00 IMPRESSION: 1. No evidence of bowel obstruction. 2. Redemonstrated parastomal herniation of bowel. 3. Unchanged partial left colectomy with chronic wall thickening and distention of the rectal pouch. 4. Percutaneous enteric gastric tube extends to the stomach. 5. Additional findings as discussed in the body of the report. Reading Location: [facility] Chest X-Ray 02/16/25 08:15 IMPRESSION: Reduced lung volumes bilaterally likely secondary to patient body habitus. No radiographic evidence for focal lung consolidation. Reading Location: [facility] Discharge Plan Dx/Rx/DC Orders Clinical Impression: Acidosis, lactic, Tachycardia, Chronic hypoxemic respiratory failure, Cerebral palsy, Tracheostomy dependent Disposition Disposition: Acute Care Hospital [facility]
--- OUTSIDE RECORDS SUMMARY | 2025-02-16 07:28 | XMS RPT_ITS | CCD ---
Author Organization [facility] Care Team Providers Care Attendant Sales Name Role Phone Aurora VARGAS, Luis Cooley Unavailable DeFinis, Harumi Y Unavailable Unavailable Coreen, RN, Bella Cooley Unavailable Unavailgalo Waite MD, Maury Anthony Unavailable Marco ESPINO, Chente Perez Unavailable DeFinis, Harumi Y Unavailable Unavailable Trenton, Harumi Y Unavailable Unavailable Dr. Chente Conn Primary Care Provider Dr. Chente Conn Referring Provider Vidhya MAC DEVELOPER, MAC DEVELOPER-C Valarie Attending Provider Dr. Maury Waite Attending [...] John Tolentino Other Provider Unavailab pio Kee MAC DEVELOPER, MAC DEVELOPER-C Valarie Other Provider Dr. Lucia Dillard Other [...] Provider Dr. Chente Conn Referring Provider Vidhya MAC DEVELOPER, MAC DEVELOPER-C Valarie Attending Provider Dr. Chente Conn Primary Care Provider Dr. Maury Waite Attending Provider Dr. Cindy Alexandre Referring Provider MD Dayo Jo Emergency Provider Dr. Cindy Alexandre Admit Provider Dr. Cindy Alexandre Other Provider Dr. Jacek Monsalve Other Provider Dr. Yovanny Moreira Attending Provider Dr. Yovanny Moreira Other Provider Dr. Armando Plaza Other Provider Dr. John Tolentino Other Provider Unavailab pio Kee MAC DEVELOPER, MAC DEVELOPER-C Valarie Other Provider Dr. Lucia Dillard Other Provider Dr. Fiona Echavarria Other Provider Dr. Lucia Dillard Attending Provider Dr. Jacek Monsalve Attending Provider Dr. Luis Simon Other Provider Dr. Robetro Hathaway Other Provider Dr. Luis Simon Attending Provider [phone] Dr. Barry Young Referring Provider Dr. Barry Young Attending Provider Dr. Barry Young Other Provider Dr. Chente Conn Referring Provider Vidhya MAC DEVELOPER, MAC DEVELOPER-C Valarie Attending Provider Dr. Chente Conn Primary Care Provider Dr. Maury Waite Attending Provider Dr. Cindy Alexandre Referring Provider MD Dayo Jo Emergency Provider Dr. Cindy Alexandre Admit Provider Dr. Cindy Alexandre Other Provider Dr. Jacek Monsalve Other Provider Dr. Yovanny Moreira Attending Provider Dr. Yovanny Moreira Other Provider Dr. Armando Plaza Other Provider Dr. John Tolentino Other Provider Unavailab pio Kee MAC DEVELOPER, MAC DEVELOPER-C Valarie Other Provider Dr. Lucia Dillard Other Provider Dr. Fiona Echavarria Other Provider Dr. Lucia Dillard Attending Provider Dr. Jacek Monsalve Attending Provider Dr. Luis Simon Other Provider Dr. Roberto Hathaway Other Provider Dr. Luis Simon Attending Provider Dr. Barry Young Referring Provider Dr. Barry Young Attending Provider Dr. Barry Young Other Provider Dr. Chente Conn Referring Provider Vidhya MAC DEVELOPER, MAC DEVELOPER-C Valaire Attending Provider Dr. Dario De La Torre Emergency Provider [facility], Dr. Jaimes Admit Provider [place], Dr. Jaimes Attending Provider Chente Perkins MD Primary Care Provider Dr. Chente Conn Primary Care Provider Dr. Dario De La Torre Emergency Provider [facility], Dr. Jaimes Admit Provider Dr. Fiona Echavarria Attending Provider Dr. Fiona Echavarria Other Provider Dr. Jacek Monsalve Other Provider Dr. Yovanny Moreira Other Provider Dr. Armando Plaza Other Provider Dr. John Tolentino Other Provider Unavailab pio Kee MAC DEVELOPER, MAC DEVELOPER-C Valarie Other Provider Dr. Lucia Dillard Attending Provider Dr. Jacek Monsalve Attending Provider Dr. Lucia Dillard Other Provider Dr. Roberto Hathaway Other Provider [phone] Bett[place], Dr. Cindy Sharpe Referring Provider Dr. [...] John Tolentino Other Provider Unavailab pio Kee MAC DEVELOPER, MAC DEVELOPER-C Valarie Other Provider Dr. Lucia Dillard Attending [...] Unavailable Dr. Chente Conn Referring Provider Vidhya MAC DEVELOPER, MAC DEVELOPER-C Valarie Attending Provider Dr. Chente Conn Primary Care Provider Dr. Chente Conn Primary Care Provider Dr. Stefan Gregory Attending Provider Dr. Donte Abebe Referring Provider Dr. Miky Rahman Emergency Provider Dr. Donte Abebe Admit Provider Dr. Donte Abebe Attending Provider Dr. Donte Abebe Other Provider Dr. Chente Conn Referring Provider Vidhya MAC DEVELOPER, MAC DEVELOPER-C Valarie Attending Provider Dr. Siddharth De La [...] Provider Dr. Chente Conn Referring Provider Vidhya MAC DEVELOPER, MAC DEVELOPER-C Valarie Attending Provider [phone] Dr. Siddharth [...] Chente De La Paz Attending Provider [phone] Dr. Chente Conn MD Referring Provider [phone] Ajay THOMAS, Dr. Clement Attending Provider [phone] Ajay THOMAS, Dr. Clement Emergency Provider [phone] Torey Weber MD Attending Provider Ajay THOMAS, Dr. Clement Referring Provider [phone] Stacie VARGAS, Dr. Pereyra Attending Provider [phone] Roddy Quinones MD Referring Provider [phone] Chente Conn MD Referring Provider Unavailable Ovi MAC DEVELOPER-C, Amber Cooley Attending Provider Vidhya MAC DEVELOPER-CValarie Attending Provider Vidhya MAC DEVELOPER-CValarie Referring Provider Dr. Chente Conn MD Primary Care Provider [phone] Dr. Chente Conn MD Attending Provider Dr. Chente Conn MD Referring Provider King SAM, Dr. Felipe Attending Provider [phone] King SAM, Dr. Felipe Other Provider Dr. Chente Conn MD Primary Care Provider Dr. Chente Conn MD Attending Provider Senia VARGAS, Dr. Chente De La Paz Referring Provider King SAM, Dr. Felipe Referring Provider Senia VARGAS, Dr. Chente De La Paz Primary Care Provider [phone] Senia VARGAS, Dr. Chente De La Paz Attending Provider Senia VARGAS, Dr. Chente De La Paz Referring Provider Stacie VARGAS, Dr. Pereyra Attending Provider [phone] Stacie VARGAS, Dr. Pereyra Referring Provider [phone] Senia VARGAS, Dr. Chente De La Paz Primary Care Provider Senia VARGAS, Dr. Chente De La Paz Primary Care Provider [phone] Senia VARGAS, Dr. Chente De La Paz Attending Provider Senia VARGAS, Dr. Chente De La Paz Referring Provider Senia VARGAS, Dr. Chente De La Paz Primary Care Provider [phone] Senia VARGAS, Dr. Chente De La Paz Attending Provider Senia VARGAS, Dr. Chente De La Paz Referring Provider Razia VARGAS, Dr. Tania Gordillo Admit Provider Razia VARGAS, Dr. Tania Gordillo Other Provider Dr. Torey James DO Attending Provider Razia VARGAS, Dr. Tania Gordillo Attending Provider Dr. Torey James DO Other Provider Senia VARGAS, Dr. Chente De La Paz Primary Care Provider [phone] Senia VARGAS, Dr. Chente De La Paz Primary Care Provider Senia VARGAS, Dr. Chente De La Paz Attending Provider Senia VARGAS, Dr. Chente De La Paz Referring Provider King SAM, Dr. Felipe Attending Provider Senia VARGAS, Dr. Chente De La Paz Primary Care Physician King SAM, Dr. Felipe Attending Physician Senia VARGAS, Dr. Chente De La Paz Attending Physician [phone] Senia VARGAS, Dr. Chente De La Paz Referring Provider Stacie VARGAS, Dr. Pereyra Attending Physician Razia VARGAS, Dr. Tania Gordillo Admitting Physician [phone] Razia VARGAS, Dr. Tania Gordillo Nurse Practitioner Jacob THOMAS, Dr. Lema Attending Physician Razia VARGAS, Dr. Tania Gordillo Attending Physician Jacob THOMAS, Dr. Lema Nurse Practitioner Dr. Mayra Sahh DO Emergency Department Physi zina Valarie Kee Referring Unavailable Valarie Kee Attending Unavailable Chente Conn Primary Care Unavailable Chente Conn Primary Care Unavailable Matteo Posadas Referring Unavailable Matteo Posadas Attending Unavailable Chente Conn Referring Unavailable Chente Conn Attending Unavailable Chente Conn Primary Care Unavailable Chente Conn Primary Care Unavailable Tania Randle Admitting Unavailable Tania Randle Consulting Unavailable Lefty Jordan Attending Unavailable Michael Posadas Consulting Unavailable Julian, Lefty Consulting Unavailable Bri, Stefan Consulting Unavailable Aby Rao Consulting Unavailable Alejandrina Smith Consulting Unavailable Sarah Grajeda Consulting Unavailable Chente Conn Attending Unavailable Chente Conn Primary Care Unavailable SchChente cooper Referring Unavailable Chente Conn Primary Care Unavailable Roddy Quinones Referring Unavailable Roddy Quinones Attending Unavailable SchChente cooper Primary Care Unavailable Mayra Shah Attending Unavailable SchChente cooper Attending Unavailable SchChente cooper Primary Care Unavailable SchChente cooper Referring Unavailable SchinChente canales Referring Unavailable SchChente cooper Attending Unavailable Chente Conn E Primary Care Unavailable Roddy Quinones Referring Unavailable SchChente cooper Primary Care Unavailable Roddy Quinones Attending Unavailable Chente Conn Primary Care Unavailable SchChente cooper Referring Unavailable SchChente cooper Attending Unavailable Chente Conn Attending Unavailable Chente Conn Referring Unavailable Schinally, Chente E Primary Care Unavailable Schallison, Chente E Primary Care Unavailable Matteo Posadas Consulting Unavailable SchChente cooper Attending Unavailable SchinChente canales E Referring Unavailable SchinChente canales E Attending Unavailable SchinChente canales E Referring Unavailable SchinChente canales E Primary Care Unavailable SchinChente canales E Primary Care Unavailable SchinChente canales E Referring Unavailable SchChente cooper E Attending Unavailable SchinChente canales E Primary Care Unavailable Racquel Moss Attending Unavailable SchChente cooper E Attending Unavailable SchinChente canales E Referring Unavailable SchinChente canales E Primary Care Unavailable SchinChente canales E Primary Care Unavailable SchChente cooper E Referring Unavailable SchChente cooper E Attending Unavailable SchChente cooper E Attending Unavailable SchChente cooper E Primary Care Unavailable SchChente cooper E Referring Unavailable SchinChente canales E Primary Care Unavailable Torey James Attending Unavailable Tania Randle Admitting Unavailable Tania Randle Consulting Unavailable Chente Conn Attending Unavailable Chente Conn E Referring Unavailable SchChente cooper E Primary Care Unavailable Torey James Attending Unavailable Chente Conn E Primary Care Unavailable Tania Randle Admitting Unavailable Tania Randle Consulting Unavailable Torey James Consulting Unavailable SchChente cooper E Primary Care Unavailable Tania Randle Attending Unavailable Tania Randle L Admitting Unavailable WhiteTania L Consulting Unavailable Racquel Moss Referring Unavailable SchChente cooper E Primary Care Unavailable Torey Weber Attending Unavailable Chente Conn Primary Care Unavailable Amber Dior Attending Unavailable Chente Martin Referring Unavailable SchChente cooper E Primary Care Unavailable Matteo Posadas Attending Unavailable Chente Conn Referring Unavailable SchChente cooper E Referring Unavailable SchChente cooper E Primary Care Unavailable Matteo Posadas Attending Unavailable Matteo Posadas Referring Unavailable SchChente cooper Attending Unavailable Schinally, Chente E Primary Care Unavailable Schallison, Chente E Primary Care Unavailable Tania Randle L Admitting Unavailable Lefty Jordan Referring Unavailable Stefan Gregory Attending Unavailable Lefty Jordan Consulting Unavailable Stefan Gregory Consulting Unavailable Aby Rao Consulting Unavailable Alejandrina Smith Consulting Unavailable Sarah Grajeda Consulting Unavailable Krishna Siddiqui Consulting Unavailable Niranjan Hale Consulting Unavailable Jacek Monsalve Consulting Unavailable Yovanny Moreira Consulting Unavailable Michael Darden Consulting Unavailable Yane Lyn Consulting Unavailable Kalpesh Mayes Consulting Unavailable Roe Judge Consulting Unavailable Mckinley Tristan Consulting Unavailable Cari Cavazos Consulting UnavailZackary Roman Consulting Unavailable Jace Shipley Consulting Unavailable Rosa Benavides Consulting Unavailable Lew Hinds Consulting UnavailEfe Stevens Consulting Unavailable Jose Sheehan Consulting Unavailable Arminda King Consulting Unavailable Gris Hewitt Consulting Unavailable Patrice Langley Consulting Unavailable Elizabeth Herron Consulting Unavailable Xiomara Mustafloree Consulting UnavailCamacho Rodriguez Consulting Unavailable Damaris Norman Consulting Unavailable Crystal Multani Consulting Unavailable Enrico Ortega Consulting Unavailable Trena Herrmann Consulting Unavailable Damaris Hurst Consulting Unavailable Barry Rg Consulting Unavailable Jovi Christianson Consulting Unavailable Goran Rose Consulting Unavailable Emma Cole Consulting Unav ailable Onur, Luis Consulting Unavailable Chase Mcbride Consulting Unavailable Tejinder Landin Consulting Unavailable Meliton Mobley Consulting Unavailable Aleksandra Amin Consulting Unavailable Bev Fritz Consulting Unavailable Flaquito Rider Consulting Unavailable Attila Escalera Consulting Unavailable Vito Bright Consulting Unavailable Rosie Corley Consulting UnavailLuther Boykin Consulting Unavailable Tania Randle Consulting Unavailable Michael Posadas Consulting Unavailable Lefty Jordan Attending Unavailable Yovanny Moreira Attending Unavailable Chente Conn Primary Care Unavailable Tania Randle Attending Unavailable Michael Posadas Attending Unavailable Michael Posadas Referring Unavailable Chente Conn Referring Unavailable Chente Conn Attending Unavailable Chente Conn Primary Care Unavailable Matteo Posadas Referring Unavailable Chente Conn Attending Unavailable Chente Conn Primary Care Unavailable Chente Conn Primary Care Unavailable Roddy Quinones Attending Unavailable Roddy Quinones Referring Unavailable Allergies Allergy Classification Reported Allergen(s) Allergy Type Date of Onset Reaction(s) Facility (16 sources) acetaminophen / codeine drug allergy 07-04-19 15 [facility] Work Phone: [phone] (8 sources) cisapride drug allergy 07-04-19 15 [facility] Work Phone: [phone] (8 sources) codeine drug allergy 07-04-19 15 [facility] Work Phone: [phone] (20 sources) Dust; Translations: [DUST] allergy to substance 07-04-19 15 Other [facility] Work Phone: [phone] (8 sources) metroNIDAZOLE drug allergy 07-04-19 15 [facility] Work Phone: [phone] (14 sources) morphine; Translations: [ASTRAMORPH] allergy to substance 07-04-19 15 hallucinations [facility] Work Phone: [phone] (20 sources) morphine; Translations: [MORPHINE] drug allergy 06-23-19 06 Other: See Comments [facility] Work Phone: [phone] (14 sources) vancomycin; Translations: [VANCOMYCIN HCL] drug allergy 01-08-20 16 [facility] Work Phone: [phone] (20 sources) Cisapride; Translations: [cisapride monohydrate] Drug Allergy 05-20-19 22 [facility] (20 sources) Codeine; Translations: [CODEINE] Drug Allergy 06-23-19 06 Other: See Comments [facility] (20 sources) metroNIDAZOLE Drug Allergy 05-20-19 22 [facility] (20 sources) house dust allergenic extract Drug Allergy 12-01-19 22 NEEDS FOLLOW-UP [facility] (6 sources) Cisapride; Translations: [PROPULSID] Drug Allergy 02-08-20 12 [facility] (6 sources) metroNIDAZOLE; Translations: [METRONIDAZOLE HCL] Drug Allergy 05-09-19 15 [facility] Work Phone: (20 sources) Chlorhexidine Drug Allergy 06-23-19 23 [facility] (1 source) Chlorhexidine Drug Allergy 12-21-19 25 [facility] (1 source) Codeine Drug Allergy 12-21-19 25 [facility] (1 source) house dust allergenic extract Drug Allergy 12-21-19 25 [facility] (1 source) metroNIDAZOLE Drug Allergy 12-21-19 [facility] Medications Current Medications Medication Drug Class(es) Dates Sig (Normalized) Sig (Original) acetaminophen 32 mg/ml oral suspension (20 sources) Start: 10-24-2022 Start: 10-24-2022 albuterol 0.83 mg/ml inhalation solution (20 sources) beta2-Adrenergic Agonist Start: 09-25-2020 End: 11-27-2020 take 2.5 mg by inhalation every four hours as needed for wheezing Start: 06-29-2018 take 2.5 mg by inhal [...] October 23, 2022 11:00pm Start: 10-24-2022 [facility] xide-Simeth Active 5 ML PO 0000,0600,1200,1800 October 24, 2022 12:00am aluminum hydroxide 40 mg/ml / magnesium hydroxide 40 mg/ml / simethicone 4 mg/ml oral suspension (20 sources) Start: 10-24-2022 Start: 10-24-2022 [facility] xide-Simeth Active 5 ML PO 0000,0600,1200,1800 October 24, 2022 12:00am Start: 01-11-2021 [facility] xide-Simeth Active 20 ML feeding tube 4 TIMES DAILY January 11, 2021 12:00am baclofen 20 mg oral tablet (20 sources) gamma-Aminobutyric Acid-ergic Agonist Start: 12-10-2022 Start: 11-27-2020 End: 12-10-2022 Baclofen 5 mg/5 mL solution Discontinued 4 mg GT 0000,0600,1200,1800 November 27, 2020 3:20pm December 10, 2022 2:18pm Spasticity Start: 05-09-2019 End: 10-06-2021 Baclofen 5 MG/5 ML solution Discontinued 20 [...] 73 4.1 mcg intrath daily BACLOFEN SOLN [id number] Luann Elliott calcium carbonate 250 mg/ml oral suspension (6 sources) Start: 07-09-2020 Calcium Carbon ate Active 500 MG feeding tube DAILY July 09, 2020 12:00am cetirizine hydrochloride 1 mg/ml oral solution (20 sources) Histamine-1 Receptor Antagonist Start: 10-24-2022 End: 09-30-2023 Start: 10-24-2022 Cetirizine Act jeanette 10 MG [...] 1 tablet by juany th once daily. Cetirizine 1 mg/mL solution (10 sources) Start: 09-30-2023 Cetirizine 1 mg/mL solution Active 10 mg feeding tube 1600 480 11 September 30, 2023 11:25am ALLERGIES Start: 09-30-2023 Cetirizine 1 m g/mL solution Active 10 mg feeding tube 1600 480 September 30, 2023 11:25am cholecalciferol 0.01 mg/ml o ral solution (20 sources) Vitamin D Start: 03-24-2022 Start: 03-24-2022 Start: 03-24-2022 Cholecalcifero l (Vitamin [...] awake Cough Assist (20 sources) Start: 12-25-2018 Start: 12-25-2018 Cough Assist A ctive 1 NMA .Route .[facility] December 25, 2018 2:40pm assist in clearing secretions Inspiratory and Expiratory times of 20-40 seconds with a 1-2 second pause. Start: 12-25-2018 Cough Assist A ctive 1 NMA .Route .[facility] December 25, 2018 2:40pm Inspiratory and Expiratory times of 20-40 seconds with a 1-2 second pause. Start: 12-25-2018 Cough Assist A ctive 1 DOSE .Route .[facility] December 25, 2018 1:40pm Inspiratory and Expiratory times of 20-40 seconds with a 1-2 second pause. Start: 12-25-2018 Cough Assist A ctive 1 DOSE .Route .[facility] December 25, 2018 2:40pm Inspiratory and [...] 09-30-2018 End: 09-30-2018 Cough Assist Discontinued 1 September 30, 2018 12:00am September 30, 2018 [...] 20-40 seconds with a 1-2 second pause. [id number] 0.3 ml EPINEPHrine 1 mg/ml auto-injector (6 sources) alpha-Adrenergic Agonist, beta-Adrenergic Agonist, Catecholamine Start: 10-24-2019 inject 0.3 mg by intramuscular injection once Epinephrine Active 0.3 MG IM ONCE October 24, 2019 12:00am as a single dose Food Supplemt, Lactose-Reduced (Ensure Original) 0.04-1.05 gram-kcal/mL liquid (11 sources) Start: 04-04-2024 take 1 mL by mouth once daily Start: 04-04-2024 take 1 mL by mouth once daily Food Supplemt, Lactose-Reduced (Ensure Original) 0.04-1.05 gram-kcal/mL liquid Active 1000 mL PO daily April 04, 2024 1:00am continuous g-tube gabapentin 50 mg/ml oral efrain ution (20 sources) Anti-epileptic Agent Start: 09-26-2019 Start: 09-26-2019 Gabapentin Act jeanette 500 MG [...] mg/ml oral solution (20 sources) Start: 04-04-2024 Start: 09-30-2023 End: 04-04-2024 Guaifenesin 200 mg/5 mL liqu id Discontinued 200 mg feeding tube 0830 as needed for COUGH/CONGESTION 118 September 30, 2023 11:25am April 04, 2024 2:26pm Start: 09-30-2023 End: 04-04-2024 Guaifenesin 200 mg/5 mL liqu id Discontinued 200 mg feeding tube 0830 as needed for COUGH/CONGESTION September 30, 2023 11:25am April 04, 2024 2:26pm Start: 03-24-2022 End: 04-04-2024 Guaifenesin 200 mg/5 mL liqu id Discontinued 200 mg feeding tube 0830 as needed for COUGH/CONGESTION 118 September 30, 2023 11:25am April 04, 2024 2:26pm Start: 03-24-2022 Guaifenesin Ac tive 200 MG [...] 50 ml/hr continuous LORazepam 2 mg/ml oral solut ion (20 sources) Benzodiazepine Start: 01-04-2024 Start: 10-24-2022 End: 01-04-2024 inject 1 mg [...] (20 sources) Dopamine-2 Receptor Antagonist Start: 09-16-2018 Start: 08-28-2016 take 1 tablet by juany th three times daily METOCLOPRAMIDE HCL 5 MG/5ML SOLN One tablet by mouth three times daily METOCLOPRAMIDE HCL [id number] Maury Waite MD Start: 12-20-2015 End: 09-16-2018 Metoclopramide Hcl 10 MG/10 ML solution Discontinued 5 mg GT THREE TIMES A DAY December 20, 2015 12:00am September 16, 2018 11:23am nausea Start: 12-20-2015 End: 09-16-2018 nystatin [id number] unt/ml oral suspension (7 sources) Polyene Antifungal Start: 01-11-2021 Nystatin Ac tive 1 ML BUCCAL 4 TIMES DAILY January 11, 2021 1:00am oxygen concentrator (20 sources) Start: 09-29-2024 oxygen concent rator Active 0 .Route .[facility] 1 0 September 29, 2024 10:13am 2-4 LPM continous daytime, 4LPM blended into vent 1 dose [facility]; As directed to maintain oxygen saturations of 89-92% Start: 12-25-2018 End: 09-29-2024 oxygen concentrator Disconti nued 1 NMA .Route .[facility] December 25, 2018 2:40pm September 29, 2024 10:16am 2-4 LPM continous daytime, 4LPM blended into vent As directed Start: 12-25-2018 oxygen concent rator Active 1 NMA .Route .[facility] December 25, 2018 2:40pm second unit, 4 LPM cont all modalities As directed Start: 12-25-2018 oxygen concent rator Active 1 NMA .Route .[facility] December 25, 2018 2:40pm As directed Start: 12-25-2018 oxygen concent rator Active 1 DOSE .Route .[facility] December 25, 2018 1:40pm As directed Start: 12-25-2018 oxygen concent rator Active 1 DOSE .Route .[facility] December 25, 2018 2:40pm As directed Start: [...] 2:41pm As directed PHENobarbital 4 mg/ml oral s olution (20 sources) Start: 02-19-2017 Start: 02-19-2017 Phenobarbital Active 60 MG GT [...] TABS 60 mg. GT twice daily PHENOBARBITAL [id number] Luann Elliott Comment on above: Inject intravenously . 60 mg twice daily. 60 actuat testosterone 20.25 mg/actuat topical gel (7 sources) Androgen Start: 07-24-2024 (20 sources) Start: 10-24-2022 Start: 11-27-2020 Start: 05-09-2019 End: 11-27-2020 Start: 12-25-2018 Start: 09-30-2018 End: 09-30-2018 Start: 09-30-2018 End: 12-25-2018 Start: 08-29-2018 End: 12-25-2018 Start: 02-04-2018 End: 10-24-2022 Start: 02-04-2018 Start: 02-04-2018 End: 02-08-2018 Start: 08-03-2015 End: 12-27-2018 Start: 01-12-2014 End: 02-08-2018 Start: 12-12-2012 End: 01-13-2013 Completed/Discontinued Medications Medication Drug Class(es) Dates Sig (Normalized) Sig (Original) 1.56 ml abaloparatide 2 mg/ml pen injector (18 sources) Parathyroid Hormone-Related Peptide Analog Start: 06-15-2024 End: 07-24-2024 Abaloparatide (Tymlos) 80 mcg (3,120 mcg/1.56 mL) pen injector Discontinued 80 ug SC daily 1.56 6 June 16, 2024 7:22am July 24, 2024 [...] WHEEZING 180 6 March 02, 2023 3:06pm March 23, 2023 3:41pm Cerebral palsy Cerebral palsy, unspecified Start: [...] tablet by mouth twice daily AMOXICILLIN-POT CLAVULANATE [id number] Maury Waite MD Start: 07-21-2016 End: 07-29-2016 [...] route fo ur times daily. Baclofen Pump (11 sources) Start: 01-12-2014 End: 02-08-2018 Baclofen Pump [...] 15, 2016 8:19am Start: 09-13-2016 End: 09-15-2016 cholecalciferol, vitamin D3, (VITAMIN D3 ORAL) (5 sources) cholecalciferol, vitamin D3, (VITAMIN D3 ORAL) Take by mouth once daily. 0 Active Comment on above: Take by mouth once d aily. COMPOUNDED PRESCRIPTION (5 sources) Start: 9 COMPOUNDED PRESCRIPTION Jevity 1.0 at 60 ml/hr x 24 hrs with 100 ml water flush 6 times per day [continuous feeding] 07/17/2018 Active Comment on above: Jevity 1.0 at 60 ml/ hr x 24 hrs with 100 ml water flush 6 times per day [continuous feeding] dexamethasone 6 mg oral tablet (11 sources) Corticosteroid Start: 4 End: 5 Dexamethasone 6 mg tablet Discontinued 6 mg feeding tube DAILY 6 6 0 January 10, 2024 1:00am April 04, 2024 2:23pm dicyclomine hydrochloride 2 mg/ml oral solution (11 sources) Anticholinergic Start: 4 End: 4 Dicyclomine 10 mg/5 mL solution Discontinued 0 .ROUTE Q8H 473 0 September 24, 2023 12:00am January 04, 2024 11:42am 5ml by GTUBE every 8 hours; Start: 09-24-2023 End: 01-04-2024 Dicyclomine 10 mg/5 mL solut ion Discontinued 0 .ROUTE Q8H 473 0 September 24, 2023 12:00am January 04, 2024 11:42am 5ml by GTUBE every 8 hours; Start: 09-24-2023 End: 01-04-2024 Dicyclomine 10 mg/5 mL solut ion Discontinued 0 .ROUTE Q8H 473 September 24, 2023 12:00am January 04, 2024 11:42am 5ml by GTUBE every 8 hours; docusate / sennosides, intermediate (14 sources) Start: 08-28-2016 SENNA-DOCUSATE SODIUM TABS as direceted as needed SENNOSIDES-DOCUSATE SODIUM TABS [id number] Maury Waite MD SENNA-DOCUSATE S ODIUM TABS SENNOSIDES-DOCUSATE SODIUM TABS [id number] Rosa Taylor LPN doxazosin 2 mg oral tablet (20 sources) alpha-Adrenergic Willian Start: 07-11-2019 End: 11-30-2021 Doxazosin 2 mg tablet Discontinued 2 mg GT DAILY 30 0 July 11, 2019 11:20am November 30, 2021 2:38pm Start: 03-24-2019 End: 11-30-2021 Comment on above: Take 2 mg by [...] (20 sources) Proton Pump Inhibitor Start: 12-14-19 End: 03-23-19 take 40 mg by mouth twice daily [...] tablet Discontinued 20 mg PO daily 90 3 September 07, 2017 12:00am September 09, 2017 3:44pm Comment on above: 2 mL by ORAL/FEEDING TUBE route once daily. lactobacillus (8 sources) take 1 capsule by mouth once daily PROBIATA TABS combination no. 4; 1 cap by mouth daily LACTOBACILLUS [id number] Luann Elliott lactobacillus acidophilus [id number] unt oral capsule (20 sources) Start: 09-20-19 End: 04-04-19 Lactobacillus Acidophilus 500 million cell capsule Discontinued [...] 2018 1:00am Lactobacillus Acidophilus 1 EACH capsule (11 sources) Start: 02-04-2018 End: 10-24-2022 Lactobacillus Acidophilus [...] With Fi br 0.06 gram-1.2 kcal/mL liquid (11 sources) Start: 11-27-2020 End: 04-04-2024 Lactose-Reduced Food With Fi br 0.06 gram-1.2 kcal/mL liquid Discontinued 1000 mL GT DAILY November 27, 2020 3:22pm April 04, 2024 2:24pm NUTRITION Start: 11-27-2020 End: 04-04-2024 Lactose-Reduced Food With Fi br 0.06 gram-1.2 kcal/mL liquid Discontinued 1000 mL GT DAILY November 27, 2020 3:22pm April 04, 2024 2:24pm Lactose-Reduced Food With Fi br 237 ML liquid (11 sources) Start: 05-09-2019 End: 11-27-2020 Lactose-Reduced Food [...] (20 sources) Proton Pump Inhibitor Start: 12-13-19 13 End: 01-14-20 13 take 1 capsule by mouth twice daily Lansoprazole (Prevacid) 30 MG capsule Discontinued 30 mg PO TWICE A DAY December 12, 2012 12:00am January 13, 2013 6:41am levoFLOXacin 750 mg oral tablet (20 sources) Quinolone Antimicrobial Start: 12-28-19 End: 01-10-20 take 1 tablet by mouth once daily Levofloxacin 750 MG tablet Discontinued 750 mg PO DAILY 6 0 December 27, 2018 1:00am January 09, 2019 [...] mouth daily as needed MAGNESIUM HYDROXIDE SUSP [id number] Maury Waite MD Start: 12-20-2015 End: 12-27-2018 [...] ml by mouth daily MAGNESIUM HYDROXIDE SUSP [id number] Luann Elliott Comment on above: Take by mouth as nee ded. montelukast 4 mg oral granules (20 sources) Leukotriene Receptor Antagonist Start: 03-02-19 24 End: 10-19-19 25 take 4 mg by mouth once daily Montelukast (Singulair) 4 mg granules in packet Discontinued 4 mg PO DAILY 90 3 September 30, 2023 11:26am October 18, 2024 9:10am ASTHMA NUTRITIONAL SUPPLEMENTS (8 sources) take 237 mL by mouth four times daily JEVITY 1 BENNY LIQD 237 ml by mouth 4 times daily NUTRITIONAL SUPPLEMENTS [id number] Luann Elliott ofloxacin 3 mg/ml ophthalmic solution (8 sources) Quinolone Antimicrobial Start: 01-10-20 16 End: 01-17-20 16 OFLOXACIN 0.3 % SOLN qid OFLOXACIN [id number] Trice Brenner MD ondansetron 4 mg disintegrating oral tablet (20 sources) Serotonin-3 Receptor Antagonist Start: 12-14-19 End: 03-23-19 take 1 tablet by mouth every eight [...] three times a day prn ONDANSETRON HCL [id number] Rosa Taylor [employer] QU[employer]ITY SUR[employer]YOR pantoprazole 40 mg delayed release oral tablet [...] pneumonia weekly bmp and cbc. Fax to [phone] routine midline care plecanatide 3 mg oral tablet (20 sources) Start: 04-25-2020 End: 09-12-2024 Plecanatide 3 mg tablet Discontinued 3 mg GT 0830 90 2 April 05, 2024 5:06pm September 12, 2024 8:56am BOWELS polyethylene glycol 3350 68662 mg powder for oral solution (20 sources) [...] 17g m q d POLYETHYLENE GLYCOL 3350 [id number] Rosa Taylor LPN potassium chloride 1.33 meq/ml oral solution (20 sources) Start: 02-04-2018 End: 12-25-2018 take 15 mEq by mouth once daily as needed Potassium Chloride 20 mEq/15 mL liquid Discontinued 15 meq PO DAILY as needed for WITH LASIX 450 December 09, 2018 9:31am December 25, 2018 2:41pm Start: 09-19-2015 End: 09-19-2015 take 20 mEq by mouth twice daily Potassium Chloride 20 MEQ/15 ML Udc Discontinued 20 meq PO TWICE A DAY 14 0 September 19, 2015 12:00am September 19, 2015 11:54am Start: 09-19-2015 End: 09-19-2015 Comment on above: 15 mEq by PEG/JET ro torres martinez once daily. rifAXIMin 550 mg oral tablet (11 sources) Rifamycin Antibacterial Start: 09-20-2023 End: 01-04-2024 [...] December 27, 2018 10:53am Senna/Docusate Sodium tablet (11 sources) Start: 08-03-2015 End: 12-27-2018 Senna/Docusate Sodium tablet Discontinued 5 mL GT DAILY August 03, 2015 12:00am December 27, 2018 10:53am constipation Start: 08-03-2015 End: 12-27-2018 Senna/Docusate Sodium tablet Discontinued 5 mL GT DAILY August 03, 2015 12:00am December 27, 2018 10:53am sennosides, intermediate 1.76 mg/ml oral solution (5 sources) Start: 06-29-2018 take 8.8 mg by mouth every twelve hours as needed sennosides (SENNA) 8.8 mg/5 mL syrup Take 5 mL by mouth twice daily as needed. 0 06/29/2018 Active Comment on above: Take 5 mL by mouth t wice daily as needed. DOCUSATE SODIUM LIQD (14 sources) Start: 08-28-2016 DOCUSATE SODIU M LIQD 200 mg GT daily as needed DOCUSATE SODIUM LIQD [id number] Maury Waite MD DOCUSATE SODIUM LIQD 200 mg GT daily DOCUSATE SODIUM LIQD [id number] Luann Elliott simethicone 66.7 mg/ml oral suspension [...] oral suspension (20 sources) Aluminum Complex Start: 09-24-2023 End: 10-01-2023 take 1 mL by mouth three times daily Sucralfate 100 mg/mL suspension Discontinued 10 mL PO THREE TIMES A DAY 210 7 0 September 24, 2023 12:00am September 30, 2023 12:00am October 01, 2023 12:04am Start: 12-13-2022 End: 03-23-2023 take 1 mL by mouth twice daily Sucralfate (Carafate) 1 00 mg/mL suspension Discontinued 10 mL PO TWICE [...] 31, 2020 1:46pm Sucralfate 100 mg/mL suspension (10 sources) Start: 09-24-2023 End: 10-01-2023 take 1 [...] 30, 2023 12:00am October 01, 2023 12:04am vancomycin 125 mg oral capsule (20 [...] THEREAFTER End: 01-08-2016 VANCOMYCIN+SYRSPEND SF PH4 S PRISON 125mg q 6 hrs x 10 days VANCOMYCIN HCL SUSP [id number] Rosa Taylor LPN Problems Active Problems Problem Classification Problem Date Documented Da te Episodic/Chronic Abdominal hernia (20 sources) Parastomal hernia; Translations: [Parastomal hernia without obstruction or gangrene] 10-31-2019 Episodic Allergic reactions (20 sources) Contact dermatitis; Translations: [Unspecified contact dermatitis, unspecified cause] Onset: 9 05-27-2021 Episodic Anxiety disorders (15 sources) Anxiety; Translations: [Anxiety disorder, unspecified] 04-13-2023 Chronic Aspiration pneumonitis; food/vomitus (20 sources) Aspiration pneumonia; Translations: [Recurrent aspiration pneumonia] Onset: 5 07-04-2014 Episodic Cardiac dysrhythmias (8 sources) Paroxysmal supraventricular tachycardia; [...] complications] Onset: 9 06-18-2018 Chronic Epilepsy; convulsions (6 sources) Epilepsy; Translations: [Epilepsy, unspecified, not intractable, without status epilepticus] Onset: 9 07-17-2018 Chronic Esophageal disorders (11 sources) Gastroesophageal reflux disease; Translations: [Gastro-esophageal reflux disease without esophagitis] 09-15-2023 Chronic Fever of unknown origin (20 sources) Hyperpyrexia; Translations: [Fever, unspecified] Onset: 3 03-24-2022 Episodic Fluid and electrolyte disorders (20 sources) Hyponatremia; Translations: [Hypo-osmolality and hyponatremia] Onset: 5 08-06-2020 Episodic Gastrointestinal hemorrhage (20 sources) Gastrointestinal hemorrhage; [...] protein-calorie malnutrition] Onset: 9 06-01-2018 Chronic Osteoporosis (17 sources) Osteoporosis; Translations: [Age-related osteoporosis without current pathological fracture] Onset: 5 06-26-2024 Chronic Comment on above: History of fragility fracture in femur Other disorders of stomach and duodenum (1 source) Disorder of function of stomach; Translations: [Disease of stomach and duodenum, unspecified] Episodic Other disorders of stomach and duodenum (16 sources) Persistent vomiting; Translations: [Cyclical vomiting syndrome unrelated to migraine] 03-24-2023 Episodic Other disorders of stomach and duodenum (5 sources) Cyclical vomiting syndrome unrelated to migraine; Translations: [Persistent vomiting] 03-25-2023 Episodic Other endocrine disorders (7 sources) Male hypogonadism; Translations: [Testicular hypofunction] 07-27-2024 Chronic Other endocrine disorders (2 sources) Testicular hypofunction; Translations: [Testicular hypofunction] Onset: 5 Chronic Other gastrointestinal disorders (1 source) Colostomy present; Translations: [Encounter for attention to colostomy] Chronic Other gastrointestinal disorders (1 source) Encounter for attention to colostomy; Translations: [Attention to colostomy ([facility])] Onset: 3 Chronic Other injuries and conditions due to external causes (20 sources) Aspiration into respiratory tract; Translations: [Unspecified foreign body in respiratory tract, part unspecified causing other injury, initial encounter] 03-24-2022 Episodic Other injuries and conditions due to external causes (6 sources) Unspecified foreign body in respiratory tract, part unspecified causing other injury, initial encounter; Translations: [Foreign body in respiratory tree, unspecified] Onset: 5 03-24-2022 Episodic Other injuries and conditions due [...] Translations: [Hypoxemia] Episodic Other lower respiratory disease (20 sources) History of aspiration pneumonia; Translations: [Personal history of pneumonia (recurrent)] 04-13-2023 Episodic Other nervous system disorders (20 sources) H/O: brain disorder; Translations: [Personal history of other diseases of the nervous system and sense organs] 06-12-2022 Episodic Other nutritional; endocrine; and metabolic disorders (5 sources) Obese class I; Translations: [Obesity, unspecified] Onset: 9 06-01-2018 Chronic Other nutritional; endocrine; and metabolic disorders (1 source) Lipoprotein deficiency; 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 Other screening for suspected conditions (not mental disorders or infectious disease) (11 sources) Increased lactic acid level; Translations: [Other specified abnormal findings of blood chemistry] 01-18-2024 Episodic Other upper respiratory disease (11 sources) Tracheostomy present; Translations: [Tracheostomy status] 01-04-2024 Chronic Paralysis (20 sources) Tetraplegic cerebral palsy; [...] Translations: [SUMMARY] Onset: 3 02-17-2021 Viral infection (11 sources) Disease caused by 2019-nCoV; Translations: [COVID-19] 01-10-2024 Episodic Past or Other Problems Problem Classification Problem Date Documented Da te Episodic/Chronic Bacterial infection; unspecified site (5 sources) Clostridioides difficile infection; Translations: [Other bacterial infections of unspecified site] Onset: 5 02-17-2021 Episodic Complications of surgical procedures or medical care (5 sources) Wound dehiscence; Translations: [Disruption of external operation (surgical) wound, not elsewhere classified, initial encounter] Onset: 9 06-01-2018 Episodic Deficiency and other anemia (1 source) Iron deficiency anemia, unspecified; Translations: [Iron deficiency anemia, unspecified] Onset: 5 Episodic Epilepsy; convulsions (5 sources) Seizure; Translations: [Unspecified convulsions] Onset: 3 02-17-2021 Episodic Fracture of lower limb (13 sources) Unspecified fracture of left femur, initial encounter for closed fracture; Translations: [Fracture of left femur] Onset: 5 02-08-2024 Episodic Gastritis and duodenitis (5 sources) Acute [...] (5 sources) Drug therapy finding; Translations: [Other longterm (current) drug therapy] Onset: 5 02-17-2021 Episodic [...] postprocedural pain] Onset: 5 02-17-2021 Episodic Other non-traumatic joint disorders (1 source) Pain in left knee; Translations: [Pain in left knee] Onset: 5 Episodic Other skin disorders (5 sources) Eruption; Translations: [Rash and other nonspecific skin eruption] Onset: 3 Episodic Pathological fracture (1 source) Pathological fracture, unspecified femur, initial encounter for fracture; Translations: [Pathological fracture, unspecified femur, initial encounter for fracture] Onset: 5 Episodic Pneumonia (except that caused by tuberculosis or sexually transmitted disease) (20 sources) Pneumonia due to Pseudomonas; Translations: [Pneumonia due to Pseudomonas] Onset: 5 Episodic Residual codes; unclassified (5 sources) Tube feeding diet; Translations: [Other specified health status] Onset: 5 02-17-2021 Episodic Unclassified (6 sources) Localized edema; Translations: [Localized edema] Onset: 7 08-28-2016 Episodic Unclassified (8 sources) Respite care available 09-03-2024 Results Test Name Value Interpretation Reference Range Facility Absolute lymphocyte countOrd ered By: Mayra Shah on 11-09-2024 Lymphocytes Auto (Unsp spec) [#/Vol] 1.37 10*3/uL 0.83-4.51 [facility] Absolute neutrophil countOrd ered By: Mayra Shah on 11-09-2024 Neutrophils (Bld) [#/Vol] 3.8 10*3/uL 2.0-7.7 [facility] Anion gap in Serum or Plasma Ordered By: Mayra Shah on 11-09-2024 Anion gap [Moles/Vol] 12 mmol/L 5-15 [facility] Automated lymphocyte count a s percentage of total leukocytesOrdered By: Mayra Shah on 11-09-2024 Lymphocytes/100 WBC Auto (Unsp spec) 23.1 % 19-41 [facility] BUN/creatinine ratioOrdered By: Mayra Shah on 11-09-2024 Urea nitrogen/Creatinine [Mass ratio] 28.1 mg/mg High 10-20 [facility] Basophil percentageOrdered B y: Mayra Shah on 11-09-2024 Basophils/100 WBC (Bld) 0.2 % 0-[address] [facility] Bilirubin Test strip Ql (U)O rdered By: Mayra Shah on 11-09-2024 Bilirubin Ql (U) Negative Negative [facility] Bilirubin, totalOrdered By: Mayra Shah on 11-09-2024 Bilirubin [Mass/Vol] mg/dL 0.00-1.30 [facility] Carbon dioxide, total [Moles /volume] in Central venous bloodOrdered By: Mayra Shah on 11-09-2024 CO2 [Moles/Vol] 23.1 mmol/L 21.0-32.0 [facility] Chloride assayOrdered By: Brad Shah on 11-09-2024 Chloride [Moles/Vol] 102 mmol/L 98-108 [facility] Eosinophil percentageOrdered By: Mayra Shah 11-09-2024 Eosinophils/100 WBC (Bld) 3.9 % 0-5 [facility] Erythrocyte distribution wid th ratioOrdered By: Mayra Shah on 11-09-2024 Erythrocyte distribution width (RBC) [Ratio] 15.5 % High 11.6-14.6 [facility] Erythrocyte distribution wid th standard deviationOrdered By: Mayra Shah 11-09-2024 Erythrocyte distribution width (RBC) [Ratio] 47.3 fl High 35.1-43.9 [facility] Glomerular filtration rate ( GFR) estimation/1.73 sq m using serum, plasma, or whole bOrdered By: Mayra Shah on 11-09-2024 GFR/1.73 sq M.predicted among non-blacks MDRD (S/P/Bld) [Vol rate/Area] 151 mL/min/{1.73_m2} >60 [facility] Comment on above: mL/min/1.73m2 CKD-EP I Creatinine Equation (2020) Hematocrit Auto (Bld) [Volum e fraction]Ordered By: Mayra Shah on 11-09-2024 Hematocrit (Bld) [Volume fraction] 30.2 % Low 40-54 [facility] Hemoglobin measurementOrdere d By: Mayra Shah on 11-09-2024 Hemoglobin (Bld) [Mass/Vol] 9.6 g/dL Low 13.0-16.5 [facility] Immature granulocytes/100 WB C Auto (Bld)Ordered By: Mayra Shah on 11-09-2024 Immature granulocytes/100 WBC (Bld) 0.300 % 0.0-0.9 [facility] Comment on above: IG% - Immature Granu locytes (promyelocytes, myelocytes and metamyelocytes) > 1% indicates that a LEFT SHIFT is Present. Ketones Test strip Ql (U)Ord ered By: Mayra Shah on 11-09-2024 Ketones Ql (U) Negative Negative [facility] Laboratory - Chemistry and C hemistry - challengeOrdered By: Mayra Shah on 11-09-2024 AST [Catalytic activity/Vol] 15 U/L <38 [facility] Lipase measurementOrdered By : Mayra Shah on 11-09-2024 Lipase [Catalytic activity/Vol] 68 U/L 13-75 [facility] Comment on above: Please note:LIPASE r evised reference range effective 22. New Lipase methodology. Expected to produce lower values than the previous assay method. NEW Reference Range: 13 - 75 U/L MCV (mean corpuscular volume ) determinationOrdered By: Mayra Shah on 11-09-2024 MCV (RBC) [Entitic vol] 84.6 fL 80-[address] [facility] Mean corpuscular hemoglobin (MCH) determinationOrdered By: Mayra Shah on 11-09-2024 MCH (RBC) [Entitic mass] 26.9 pg Low 27.0-32.0 [facility] Mean corpuscular hemoglobin concentration (MCHC) determinationOrdered By: Mayra Shah on 11-09-2024 MCHC (RBC) [Mass/Vol] 31.8 g/dL Low 32-36 [facility] Mean platelet volume determi nationOrdered By: Mayra Shah on 11-09-2024 Platelet mean volume (Bld) [Entitic vol] 9.4 fL 6.2-12.0 [facility] Microscopic analysis of urin e for red blood cells (RBC)Ordered By: Mayra Shah on 11-09-2024 Microscopic analysis of urine for red blood cells (RBC) 0 SEEN /hpf 0-5 [facility] Monocyte percentageOrdered B y: Mayra Shah on 11-09-2024 Monocytes/100 WBC (Bld) 7.6 % 0-[address] [facility] Mucus LM Ql (Urine sed)Order ed By: Mayra Shah on 11-09-2024 Mucus Ql (Urine sed) 0 SEEN /hpf [facility] Neutrophil percentageOrdered By: Mayra Shah on 11-09-2024 Neutrophils/100 WBC (Bld) 64.9 % 47-70 [facility] Nitrite Test strip Ql (U)Ord ered By: Mayra Shah on 11-09-2024 Nitrite Ql (U) Negative Negative [facility] Nucleated red blood cell per centageOrdered By: Mayra Shah on 11-09-2024 Nucleated RBC/100 WBC (Bld) [Ratio] 0 % 0-5 [facility] Platelet countOrdered By: Brad Shah on 11-09-2024 Platelets (Bld) [#/Vol] 132 10*3/uL Low 150-450 [facility] Potassium measurement (mass/ volume)Ordered By: Mayra Shah on 11-09-2024 Potassium (Unsp spec) [Mass/Vol] 3.4 mmol/L 3.3-5.1 [facility] Protein Test strip Ql (U)Ord ered By: Mayra Shah on 11-09-2024 Protein Ql (U) 30 mg/dl High Negative [facility] RBC Auto (Bld) [#/Vol]Ordere d By: Mayra Shah on 11-09-2024 RBC (Bld) [#/Vol] 3.57 10*6/uL Low 4.6-6.2 [facility] Serum creatinine measurement (mass/volume)Ordered By: Mayra Shah on 11-09-2024 Creatinine [Mass/Vol] 0.31 mg/dL Low 0.70-1.20 [facility] Serum globulin measurementOr dered By: Mayra Shah on 11-09-2024 Globulin (S) [Mass/Vol] 3.8 g/dL 2.2-4.[address] [facility] Serum glucose measurement (m ass/volume)Ordered By: Mayra Shah on 11-09-2024 Glucose [Mass/Vol] 86 mg/dL 70-99 [facility] Serum or plasma alanine salas otransferase (ALT) measurementOrdered By: Mayra Shah on 11-09-2024 ALT [Catalytic activity/Vol] 8 U/L <47 [facility] Serum or plasma albumin jacinta urement (mass/volume)Ordered By: Mayra Shah on 11-09-2024 Albumin [Mass/Vol] 3.2 g/dL Low 3.5-5.0 [facility] Serum or plasma albumin/glob ulin mass ratioOrdered By: Mayra Shah on 11-09-2024 Albumin/Globulin [Mass ratio] 0.8 {ratio} Low 0.9-2.4 [facility] Serum or plasma alkaline robbi sphatase measurementOrdered By: Mayra Shah on 11-09-2024 ALP [Catalytic activity/Vol] 142 U/L High 40-129 [facility] Serum or plasma calcium jacinta urement (mass/volume)Ordered By: Mayra Shah on 11-09-2024 Calcium [Mass/Vol] 7.6 mg/dL 7.6-11.0 [facility] Serum or plasma urea nitroge n measurement (mass/volume)Ordered By: Mayra Shah on 11-09-2024 Urea nitrogen [Mass/Vol] 9 mg/dL 4-19 [facility] Sodium levelOrdered By: Clarisse Shah on 11-09-2024 Sodium [Moles/Vol] 137 mmol/L 133-145 [facility] Squamous epithelial cells de tection in urine sediment by light microscopyOrdered By: Mayra Shah on 11-09-2024 Epithelial cells.squamous LM Ql (Urine sed) 0 SEEN /hpf 0-5 [facility] Total proteinOrdered By: Samantha Shah on 11-09-2024 Protein [Mass/Vol] 6.9 g/dL 5.9-8.4 [facility] Urine clarityOrdered By: Samantha Shah on 11-09-2024 Clarity (U) Clear Clear [facility] Urine color determinationOrd ered By: Mayra Shah on 11-09-2024 Color (U) Yellow Yellow [facility] Urine cultureOrdered By: Samantha Shah on 11-09-2024 Bacteria identified Cx Nom (U) Culture exhibits no growth. [facility] Urine glucose detectionOrder ed By: Mayra Shah on 11-09-2024 Glucose Ql (U) Normal mg/dl Normal [facility] Urine leukocyte esterase det ection by dipstickOrdered By: Mayra Shah on 11-09-2024 Leukocyte esterase Test strip Ql (U) Negative Negative [facility] Urine pHOrdered By: Mayra da silva on 11-09-2024 pH (U) 6.5 [pH] 5.0 - 8.0 [facility] Urine sediment bacteria coun t by microscopy (number/high power field)Ordered By: Mayra Shah on 11-09-2024 Bacteria LM.HPF (Urine sed) [#/Area] 0 /[HPF] None Seen [facility] Urine specific gravity measu rementOrdered By: Mayra Shah on 11-09-2024 Specific gravity (U) [Rel density] 1.010 1.002-1.030 [facility] Urine urobilinogen measureme ntOrdered By: Mayra Shah on 11-09-2024 Urobilinogen Ql (U) Normal mg/dl Normal [facility] White blood cell (WBC) count Ordered By: Mayra Shah on 11-09-2024 WBC (Bld) [#/Vol] 5.9 10*3/uL 4.4-11.0 [facility] White blood cell countOrdere d By: Mayra Shah on 11-09-2024 White blood cell count 0 SEEN /hpf 0-[address] [facility] Absolute lymphocyte countOrd ered By: Chente Conn on 10-16-2024 Lymphocytes Auto (Unsp spec) [#/Vol] 1.70 10*3/uL 0.83-4.51 [facility] Absolute neutrophil countOrd ered By: Chente Conn on 10-16-2024 Neutrophils (Bld) [#/Vol] 2.0 10*3/uL 2.0-7.7 [facility] Anion gap in Serum or Plasma Ordered By: Chente Conn on 10-16-2024 Anion gap [Moles/Vol] 12 mmol/L 5-15 [facility] Automated lymphocyte count a s percentage of total leukocytesOrdered By: Chente Conn on 10-16-2024 Lymphocytes/100 WBC Auto (Unsp spec) 39.2 % 19-41 [facility] BUN/creatinine ratioOrdered By: Chente Conn on 10-16-2024 Urea nitrogen/Creatinine [Mass ratio] 32.5 mg/mg High 10-20 [facility] Basophil percentageOrdered B y: Chente Conn on 10-16-2024 Basophils/100 WBC (Bld) 0.2 % 0-[address] [facility] Carbon dioxide, total [Moles /volume] in Central venous bloodOrdered By: Chente Conn on 10-16-2024 CO2 [Moles/Vol] 27.1 mmol/L 21.0-32.0 [facility] Chloride assayOrdered By: Areli Conn on 10-16-2024 Chloride [Moles/Vol] 99 mmol/L 98-108 [facility] Eosinophil percentageOrdered By: Chente Conn on 10-16-2024 Eosinophils/100 WBC (Bld) 3.7 % 0-5 [facility] Erythrocyte distribution wid th ratioOrdered By: Chente Conn on 10-16-2024 Erythrocyte distribution width (RBC) [Ratio] 17.0 % High 11.6-14.6 [facility] Erythrocyte distribution wid th standard deviationOrdered By: Chente Conn on 10-16-2024 Erythrocyte distribution width (RBC) [Ratio] 53.3 fl High 35.1-43.9 [facility] Glomerular filtration rate ( GFR) estimation/1.73 sq m using serum, plasma, or whole bOrdered By: Chente Conn on 10-16-2024 GFR/1.73 sq M.predicted among non-blacks MDRD (S/P/Bld) [Vol rate/Area] 154 mL/min/{1.73_m2} >60 [facility] Comment on above: mL/min/1.73m2 CKD-EP I Creatinine Equation (2020) Hematocrit Auto (Bld) [Volum e fraction]Ordered By: Chente Conn on 10-16-2024 Hematocrit (Bld) [Volume fraction] 29.5 % Low 40-54 [facility] Hemoglobin measurementOrdere d By: Chente Conn on 10-16-2024 Hemoglobin (Bld) [Mass/Vol] 9.4 g/dL Low 13.0-16.5 [facility] Immature granulocytes/100 WB C Auto (Bld)Ordered By: Chente Conn on 10-16-2024 Immature granulocytes/100 WBC (Bld) 0.200 % 0.0-0.9 [facility] Comment on above: IG% - Immature Granu locytes (promyelocytes, myelocytes and metamyelocytes) > 1% indicates that a LEFT SHIFT is Present. MCV (mean corpuscular volume ) determinationOrdered By: Chente Conn on 10-16-2024 MCV (RBC) [Entitic vol] 86.5 fL 80-[address] [facility] Mean corpuscular hemoglobin (MCH) determinationOrdered By: Chente Conn on 10-16-2024 MCH (RBC) [Entitic mass] 27.6 pg 27.0-32.0 [facility] Mean corpuscular hemoglobin concentration (MCHC) determinationOrdered By: Chente Conn on 10-16-2024 MCHC (RBC) [Mass/Vol] 31.9 g/dL Low 32-36 [facility] Mean platelet volume determi nationOrdered By: Chente Conn on 10-16-2024 Platelet mean volume (Bld) [Entitic vol] 10.8 fL 6.2-12.0 [facility] Monocyte percentageOrdered B y: Chente Conn on 10-16-2024 Monocytes/100 WBC (Bld) 9.9 % 0-[address] [facility] Neutrophil percentageOrdered By: Chente Conn on 10-16-2024 Neutrophils/100 WBC (Bld) 46.8 % Low 47-70 [facility] Nucleated red blood cell per centageOrdered By: Chente Conn on 10-16-2024 Nucleated RBC/100 WBC (Bld) [Ratio] 0 % 0-5 [facility] Platelet countOrdered By: Areli Conn on 10-16-2024 Platelets (Bld) [#/Vol] 195 10*3/uL 150-450 [facility] Potassium measurement (mass/ volume)Ordered By: Chente Conn on 10-16-2024 Potassium (Unsp spec) [Mass/Vol] 3.8 mmol/L 3.3-5.1 [facility] RBC Auto (Bld) [#/Vol]Ordere d By: Chente Conn on 10-16-2024 RBC (Bld) [#/Vol] 3.41 10*6/uL Low 4.6-6.2 [facility] Serum creatinine measurement (mass/volume)Ordered By: Chente Conn on 10-16-2024 Creatinine [Mass/Vol] 0.29 mg/dL Low 0.70-1.20 [facility] Serum glucose measurement (m ass/volume)Ordered By: Chente Conn on 10-16-2024 Glucose [Mass/Vol] 87 mg/dL 70-99 [facility] Serum or plasma calcium jacinta urement (mass/volume)Ordered By: Chente Conn on 10-16-2024 Calcium [Mass/Vol] 8.7 mg/dL 7.6-11.0 [facility] Serum or plasma urea nitroge n measurement (mass/volume)Ordered By: Chente Conn on 10-16-2024 Urea nitrogen [Mass/Vol] 9 mg/dL 4-19 [facility] Sodium levelOrdered By: Chente Conn on 10-16-2024 Sodium [Moles/Vol] 138 mmol/L 133-145 [facility] White blood cell (WBC) count Ordered By: Chente Conn on 10-16-2024 WBC (Bld) [#/Vol] 4.3 10*3/uL Low 4.4-11.0 [facility] Absolute lymphocyte countOrd ered By: Chente Conn on 09-18-2024 Lymphocytes Auto (Unsp spec) [#/Vol] 2.10 10*3/uL 0.83-4.51 [facility] Absolute neutrophil countOrd ered By: Chente Conn on 09-18-2024 Neutrophils (Bld) [#/Vol] 3.5 10*3/uL 2.0-7.7 [facility] Anion gap in Serum or Plasma Ordered By: Chente Conn on 09-18-2024 Anion gap [Moles/Vol] 12 mmol/L 5-15 [facility] Automated lymphocyte count a s percentage of total leukocytesOrdered By: Chente Conn on 09-18-2024 Lymphocytes/100 WBC Auto (Unsp spec) 34.4 % 19-41 [facility] BUN/creatinine ratioOrdered By: Chente Conn on 09-18-2024 Urea nitrogen/Creatinine [Mass ratio] 37.0 mg/mg High 10-20 [facility] Basophil percentageOrdered B y: Chente Conn on 09-18-2024 Basophils/100 WBC (Bld) 0.2 % 0-[address] [facility] Carbon dioxide, total [Moles /volume] in Central venous bloodOrdered By: Chente Conn on 09-18-2024 CO2 [Moles/Vol] 27.6 mmol/L 21.0-32.0 [facility] Chloride assayOrdered By: Areli Conn on 09-18-2024 Chloride [Moles/Vol] 99 mmol/L 98-108 [facility] Eosinophil percentageOrdered By: Chente Conn on 09-18-2024 Eosinophils/100 WBC (Bld) 1.0 % 0-5 [facility] Erythrocyte distribution wid th ratioOrdered By: Chente Conn on 09-18-2024 Erythrocyte distribution width (RBC) [Ratio] 17.4 % High 11.6-14.6 [facility] Erythrocyte distribution wid th standard deviationOrdered By: Chente Conn on 09-18-2024 Erythrocyte distribution width (RBC) [Ratio] 55.6 fl High 35.1-43.9 [facility] Glomerular filtration rate ( GFR) estimation/1.73 sq m using serum, plasma, or whole bOrdered By: Chente Conn on 09-18-2024 GFR/1.73 sq M.predicted among non-blacks MDRD (S/P/Bld) [Vol rate/Area] 141 mL/min/{1.73_m2} >60 [facility] Comment on above: mL/min/1.73m2 CKD-EP I Creatinine Equation (2020) Hematocrit Auto (Bld) [Volum e fraction]Ordered By: Chente Conn on 09-18-2024 Hematocrit (Bld) [Volume fraction] 34.0 % Low 40-54 [facility] Hemoglobin measurementOrdere d By: Chente Conn on 09-18-2024 Hemoglobin (Bld) [Mass/Vol] 10.7 g/dL Low 13.0-16.5 [facility] Immature granulocytes/100 WB C Auto (Bld)Ordered By: Chente Conn on 09-18-2024 Immature granulocytes/100 WBC (Bld) 0.300 % 0.0-0.9 [facility] Comment on above: IG% - Immature Granu locytes (promyelocytes, myelocytes and metamyelocytes) > 1% indicates that a LEFT SHIFT is Present. MCV (mean corpuscular volume ) determinationOrdered By: Chente Conn on 09-18-2024 MCV (RBC) [Entitic vol] 87.4 fL 80-[address] [facility] Mean corpuscular hemoglobin (MCH) determinationOrdered By: Chente Conn on 09-18-2024 MCH (RBC) [Entitic mass] 27.5 pg 27.0-32.0 [facility] Mean corpuscular hemoglobin concentration (MCHC) determinationOrdered By: Chente Conn on 09-18-2024 MCHC (RBC) [Mass/Vol] 31.5 g/dL Low 32-36 [facility] Mean platelet volume determi nationOrdered By: Chente Conn on 09-18-2024 Platelet mean volume (Bld) [Entitic vol] 10.3 fL 6.2-12.0 [facility] Monocyte percentageOrdered B y: Chente Conn on 09-18-2024 Monocytes/100 WBC (Bld) 7.5 % 0-[address] [facility] Neutrophil percentageOrdered By: Chente Conn on 09-18-2024 Neutrophils/100 WBC (Bld) 56.6 % 47-70 [facility] Nucleated red blood cell per centageOrdered By: Chente Conn on 09-18-2024 Nucleated RBC/100 WBC (Bld) [Ratio] 0 % 0-5 [facility] Platelet countOrdered By: Areli Conn on 09-18-2024 Platelets (Bld) [#/Vol] 258 10*3/uL 150-450 [facility] Potassium measurement (mass/ volume)Ordered By: Chente Conn on 09-18-2024 Potassium (Unsp spec) [Mass/Vol] 4.5 mmol/L 3.3-5.1 [facility] RBC Auto (Bld) [#/Vol]Ordere d By: Chente Conn on 09-18-2024 RBC (Bld) [#/Vol] 3.89 10*6/uL Low 4.6-6.2 [facility] Serum creatinine measurement (mass/volume)Ordered By: Chente Conn on 09-18-2024 Creatinine [Mass/Vol] 0.39 mg/dL Low 0.70-1.20 [facility] Serum glucose measurement (m ass/volume)Ordered By: Chente Conn on 09-18-2024 Glucose [Mass/Vol] 95 mg/dL 70-99 [facility] Serum or plasma calcium jacinta urement (mass/volume)Ordered By: Chente Conn on 09-18-2024 Calcium [Mass/Vol] 9.1 mg/dL 7.6-11.0 [facility] Serum or plasma urea nitroge n measurement (mass/volume)Ordered By: Chente Conn on 09-18-2024 Urea nitrogen [Mass/Vol] 14 mg/dL 4-19 [facility] Sodium levelOrdered By: Chente Conn on 09-18-2024 Sodium [Moles/Vol] 138 mmol/L 133-145 [facility] White blood cell (WBC) count Ordered By: Chente Conn on 09-18-2024 WBC (Bld) [#/Vol] 6.1 10*3/uL 4.4-11.0 [facility] Absolute lymphocyte countOrd ered By: Chente Conn on 08-22-2024 Lymphocytes Auto (Unsp spec) [#/Vol] 1.17 10*3/uL 0.83-4.51 [facility] Absolute neutrophil countOrd ered By: Chente Conn on 08-22-2024 Neutrophils (Bld) [#/Vol] 2.1 10*3/uL 2.0-7.7 [facility] Anion gap in Serum or Plasma Ordered By: Chente Conn on 08-22-2024 Anion gap [Moles/Vol] 9 mmol/L 5-15 [facility] Automated lymphocyte count a s percentage of total leukocytesOrdered By: Chente Conn on 08-22-2024 Lymphocytes/100 WBC Auto (Unsp spec) 31.3 % 19-41 [facility] BUN/creatinine ratioOrdered By: Chente Conn on 08-22-2024 Urea nitrogen/Creatinine [Mass ratio] 46.4 mg/mg High 10-20 [facility] Basophil percentageOrdered B y: Chente Conn on 08-22-2024 Basophils/100 WBC (Bld) 0.0 % 0-[address] [facility] Carbon dioxide, total [Moles /volume] in Central venous bloodOrdered By: Chente Conn on 08-22-2024 CO2 [Moles/Vol] 28.9 mmol/L 21.0-32.0 [facility] Chloride assayOrdered By: Areli Conn on 08-22-2024 Chloride [Moles/Vol] 99 mmol/L 98-108 [facility] Eosinophil percentageOrdered By: Chente Conn on 08-22-2024 Eosinophils/100 WBC (Bld) 4.5 % 0-5 [facility] Erythrocyte distribution wid th ratioOrdered By: Chente Conn on 08-22-2024 Erythrocyte distribution width (RBC) [Ratio] 16.3 % High 11.6-14.6 [facility] Erythrocyte distribution wid th standard deviationOrdered By: Chente Conn on 08-22-2024 Erythrocyte distribution width (RBC) [Ratio] 49.5 fl High 35.1-43.9 [facility] Glomerular filtration rate ( GFR) estimation/1.73 sq m using serum, plasma, or whole bOrdered By: Chente Conn on 08-22-2024 GFR/1.73 sq M.predicted among non-blacks MDRD (S/P/Bld) [Vol rate/Area] 167 mL/min/{1.73_m2} >60 [facility] Comment on above: mL/min/1.73m2 CKD-EP I Creatinine Equation (2020) Hematocrit Auto (Bld) [Volum e fraction]Ordered By: Chente Conn on 08-22-2024 Hematocrit (Bld) [Volume fraction] 31.8 % Low 40-54 [facility] Hemoglobin measurementOrdere d By: Chente Conn on 08-22-2024 Hemoglobin (Bld) [Mass/Vol] 10.1 g/dL Low 13.0-16.5 [facility] Immature granulocytes/100 WB C Auto (Bld)Ordered By: Chente Conn on 08-22-2024 Immature granulocytes/100 WBC (Bld) 0.500 % 0.0-0.9 [facility] Comment on above: IG% - Immature Granu locytes (promyelocytes, myelocytes and metamyelocytes) > 1% indicates that a LEFT SHIFT is Present. MCV (mean corpuscular volume ) determinationOrdered By: Chente Conn on 08-22-2024 MCV (RBC) [Entitic vol] 85.3 fL 80-[address] [facility] Mean corpuscular hemoglobin (MCH) determinationOrdered By: Chente Conn on 08-22-2024 MCH (RBC) [Entitic mass] 27.1 pg 27.0-32.0 [facility] Mean corpuscular hemoglobin concentration (MCHC) determinationOrdered By: Chente Conn on 08-22-2024 MCHC (RBC) [Mass/Vol] 31.8 g/dL Low 32-36 [facility] Mean platelet volume determi nationOrdered By: Chente Conn on 08-22-2024 Platelet mean volume (Bld) [Entitic vol] 10.8 fL 6.2-12.0 [facility] Monocyte percentageOrdered B y: Chente Conn on 08-22-2024 Monocytes/100 WBC (Bld) 8.8 % 0-[address] [facility] Neutrophil percentageOrdered By: Chente Conn on 08-22-2024 Neutrophils/100 WBC (Bld) 54.9 % 47-70 [facility] Nucleated red blood cell per centageOrdered By: Chente Conn on 08-22-2024 Nucleated RBC/100 WBC (Bld) [Ratio] 0 % 0-5 [facility] Platelet countOrdered By: Areli Conn on 08-22-2024 Platelets (Bld) [#/Vol] 118 10*3/uL Low 150-450 [facility] Potassium measurement (mass/ volume)Ordered By: Chente Conn on 08-22-2024 Potassium (Unsp spec) [Mass/Vol] 4.1 mmol/L 3.3-5.1 [facility] RBC Auto (Bld) [#/Vol]Ordere d By: Chente Conn on 08-22-2024 RBC (Bld) [#/Vol] 3.73 10*6/uL Low 4.6-6.2 [facility] Serum creatinine measurement (mass/volume)Ordered By: Chente Conn on 08-22-2024 Creatinine [Mass/Vol] 0.22 mg/dL Low 0.70-1.20 [facility] Serum glucose measurement (m ass/volume)Ordered By: Chente Conn on 08-22-2024 Glucose [Mass/Vol] 90 mg/dL 70-99 [facility] Serum or plasma calcium jacinta urement (mass/volume)Ordered By: Chente Conn on 08-22-2024 Calcium [Mass/Vol] 8.7 mg/dL 7.6-11.0 [facility] Serum or plasma urea nitroge n measurement (mass/volume)Ordered By: Chente Conn on 08-22-2024 Urea nitrogen [Mass/Vol] 10 mg/dL 4-19 [facility] Sodium levelOrdered By: Chente Conn on 08-22-2024 Sodium [Moles/Vol] 137 mmol/L 133-145 [facility] White blood cell (WBC) count Ordered By: Chente Conn on 08-22-2024 WBC (Bld) [#/Vol] 3.7 10*3/uL Low 4.4-11.0 [facility] Laboratory - Chemistry and C hemistry - challengeOrdered By: Matteo Posadas on 07-27-2024 Testosterone [Mass/Vol] 15.60 ng/dL Low 300-890 [facility] Absolute lymphocyte countOrd ered By: Chente Conn on 07-25-2024 Lymphocytes Auto (Unsp spec) [#/Vol] 2.03 10*3/uL 0.83-4.51 [facility] Absolute neutrophil countOrd ered By: Chente Conn on 07-25-2024 Neutrophils (Bld) [#/Vol] 3.4 10*3/uL 2.0-7.7 [facility] Anion gap in Serum or Plasma Ordered By: Chente Conn on 07-25-2024 Anion gap [Moles/Vol] 14 mmol/L 5-15 [facility] Automated lymphocyte count a s percentage of total leukocytesOrdered By: Chente Conn on 07-25-2024 Lymphocytes/100 WBC Auto (Unsp spec) 31.8 % 19-41 [facility] BUN/creatinine ratioOrdered By: Chente Conn on 07-25-2024 Urea nitrogen/Creatinine [Mass ratio] 24.1 mg/mg High 10-20 [facility] Basophil percentageOrdered B y: Chente Conn on 07-25-2024 Basophils/100 WBC (Bld) 0.2 % 0-[address] [facility] Carbon dioxide, total [Moles /volume] in Central venous bloodOrdered By: Chente Conn on 07-25-2024 CO2 [Moles/Vol] 25.0 mmol/L 21.0-32.0 [facility] Chloride assayOrdered By: Areli Conn on 07-25-2024 Chloride [Moles/Vol] 99 mmol/L 98-108 [facility] Eosinophil percentageOrdered By: Chente Conn on 07-25-2024 Eosinophils/100 WBC (Bld) 3.6 % 0-5 [facility] Erythrocyte distribution wid th ratioOrdered By: Chente Conn on 07-25-2024 Erythrocyte distribution width (RBC) [Ratio] 15.6 % High 11.6-14.6 [facility] Erythrocyte distribution wid th standard deviationOrdered By: Chente Conn on 07-25-2024 Erythrocyte distribution width (RBC) [Ratio] 47.2 fl High 35.1-43.9 [facility] Glomerular filtration rate ( GFR) estimation/1.73 sq m using serum, plasma, or whole bOrdered By: Chente Conn on 07-25-2024 GFR/1.73 sq M.predicted among non-blacks MDRD (S/P/Bld) [Vol rate/Area] 148 mL/min/{1.73_m2} >60 [facility] Comment on above: mL/min/1.73m2 CKD-EP I Creatinine Equation (2020) Hematocrit Auto (Bld) [Volum e fraction]Ordered By: Chente Conn on 07-25-2024 Hematocrit (Bld) [Volume fraction] 30.1 % Low 40-54 [facility] Hemoglobin measurementOrdere d By: Chente Conn on 07-25-2024 Hemoglobin (Bld) [Mass/Vol] 9.8 g/dL Low 13.0-16.5 [facility] Immature granulocytes/100 WB C Auto (Bld)Ordered By: Chente Conn on 07-25-2024 Immature granulocytes/100 WBC (Bld) 0.300 % 0.0-0.9 [facility] Comment on above: IG% - Immature Granu locytes (promyelocytes, myelocytes and metamyelocytes) > 1% indicates that a LEFT SHIFT is Present. MCV (mean corpuscular volume ) determinationOrdered By: Chente Conn on 07-25-2024 MCV (RBC) [Entitic vol] 84.1 fL 80-[address] [facility] Mean corpuscular hemoglobin (MCH) determinationOrdered By: Chente Conn on 07-25-2024 MCH (RBC) [Entitic mass] 27.4 pg 27.0-32.0 [facility] Mean corpuscular hemoglobin concentration (MCHC) determinationOrdered By: Chente Conn on 07-25-2024 MCHC (RBC) [Mass/Vol] 32.6 g/dL 32-36 [facility] Mean platelet volume determi nationOrdered By: Chente Conn on 07-25-2024 Platelet mean volume (Bld) [Entitic vol] 10.2 fL 6.2-12.0 [facility] Monocyte percentageOrdered B y: Chente Conn on 07-25-2024 Monocytes/100 WBC (Bld) 11.6 % High 0-[address] [facility] Neutrophil percentageOrdered By: Chente Conn on 07-25-2024 Neutrophils/100 WBC (Bld) 52.5 % 47-70 [facility] Nucleated red blood cell per centageOrdered By: Chente Conn on 07-25-2024 Nucleated RBC/100 WBC (Bld) [Ratio] 0 % 0-5 [facility] Platelet countOrdered By: Areli Conn on 07-25-2024 Platelets (Bld) [#/Vol] 166 10*3/uL 150-450 [facility] Potassium measurement (mass/ volume)Ordered By: Chente Conn on 07-25-2024 Potassium (Unsp spec) [Mass/Vol] 3.7 mmol/L 3.3-5.1 [facility] RBC Auto (Bld) [#/Vol]Ordere d By: Chente Conn on 07-25-2024 RBC (Bld) [#/Vol] 3.58 10*6/uL Low 4.6-6.2 [facility] Serum creatinine measurement (mass/volume)Ordered By: Chente Conn on 07-25-2024 Creatinine [Mass/Vol] 0.33 mg/dL Low 0.70-1.20 [facility] Serum glucose measurement (m ass/volume)Ordered By: Chente Conn on 07-25-2024 Glucose [Mass/Vol] 113 mg/dL High 70-99 [facility] Serum or plasma calcium jacinta urement (mass/volume)Ordered By: Chente Conn on 07-25-2024 Calcium [Mass/Vol] 8.8 mg/dL 7.6-11.0 [facility] Serum or plasma urea nitroge n measurement (mass/volume)Ordered By: Chente Conn on 07-25-2024 Urea nitrogen [Mass/Vol] 8 mg/dL 4-19 [facility] Sodium levelOrdered By: Chetne Conn on 07-25-2024 Sodium [Moles/Vol] 137 mmol/L 133-145 [facility] White blood cell (WBC) count Ordered By: Chente Conn on 07-25-2024 WBC (Bld) [#/Vol] 6.4 10*3/uL 4.4-11.0 [facility] Free testosterone percentage Ordered By: Matteo Posadas on 07-18-2024 Testosterone Free/Testosterone.total [Mass fraction] 5.01 % High 1.50-4.20 [facility] Insulin-like growth factor ( IGF) measurementOrdered By: Matteo Posadas on 07-18-2024 Insulin-like growth factor [Moles/Vol] 109 ng/mL 84-270 [facility] Comment on above: Performed at: - [address] [id number] Director: Berry Gonzalez PhD, Phone: [phone] at: [facility] [id number] Director: Nicholas Ryan MD, Phone: [phone] Serum or plasma free testost erone measurement (mass/volume)Ordered By: Matteo Posadas on 07-18-2024 Testosterone Free [Mass/Vol] 0.50 ng/dL Low 5.00-21.00 [facility] Testosterone, totalOrdered B y: Matteo Posadas on 07-18-2024 Testosterone [Mass/Vol] 10 ng/dL Low 264-[address] [facility] Comment on above: Adult male reference interval is based on a population ofhealthy nonobese males (BMI <30) between 19 and 39 yearsold. Marlen et.al. JCEM 2017,102;[id number]. PMID:[id number]. Absolute lymphocyte countOrd ered By: Chente Conn on 06-26-2024 Lymphocytes Auto (Unsp spec) [#/Vol] 2.13 10*3/uL 0.83-4.51 [facility] Absolute neutrophil countOrd ered By: Chente Conn on 06-26-2024 Neutrophils (Bld) [#/Vol] 2.7 10*3/uL 2.0-7.7 [facility] Anion gap in Serum or Plasma Ordered By: Chente Conn on 06-26-2024 Anion gap [Moles/Vol] 10 mmol/L 5-15 [facility] Automated lymphocyte count a s percentage of total leukocytesOrdered By: Chente Conn on 06-26-2024 Lymphocytes/100 WBC Auto (Unsp spec) 36.8 % 19-41 [facility] BUN/creatinine ratioOrdered By: Chente Conn on 06-26-2024 Urea nitrogen/Creatinine [Mass ratio] 40.8 mg/mg High 10-20 [facility] Basophil percentageOrdered B y: Chente oCnn on 06-26-2024 Basophils/100 WBC (Bld) 0.3 % 0-[address] [facility] Bilirubin, totalOrdered By: Chente Conn on 06-26-2024 Bilirubin [Mass/Vol] 0.16 mg/dL 0.00-1.30 [facility] Carbon dioxide, total [Moles /volume] in Central venous bloodOrdered By: Chente Conn on 06-26-2024 CO2 [Moles/Vol] 27.6 mmol/L 21.0-32.0 [facility] Chloride assayOrdered By: Areil Conn on 06-26-2024 Chloride [Moles/Vol] 98 mmol/L 98-108 [facility] Eosinophil percentageOrdered By: Chente Conn on 06-26-2024 Eosinophils/100 WBC (Bld) 6.6 % High 0-5 [facility] Erythrocyte distribution wid th ratioOrdered By: Chente Conn on 06-26-2024 Erythrocyte distribution width (RBC) [Ratio] 15.4 % High 11.6-14.6 [facility] Erythrocyte distribution wid th standard deviationOrdered By: Chente Conn on 06-26-2024 Erythrocyte distribution width (RBC) [Ratio] 46.5 fl High 35.1-43.9 [facility] Glomerular filtration rate ( GFR) estimation/1.73 sq m using serum, plasma, or whole bOrdered By: Chente Conn on 06-26-2024 GFR/1.73 sq M.predicted among non-blacks MDRD (S/P/Bld) [Vol rate/Area] 157 mL/min/{1.73_m2} >60 [facility] Comment on above: mL/min/1.73m2 CKD-EP I Creatinine Equation (2020) Hematocrit Auto (Bld) [Volum e fraction]Ordered By: Chente Conn on 06-26-2024 Hematocrit (Bld) [Volume fraction] 32.2 % Low 40-54 [facility] Hemoglobin measurementOrdere d By: Chente Conn on 06-26-2024 Hemoglobin (Bld) [Mass/Vol] 10.3 g/dL Low 13.0-16.5 [facility] Immature granulocytes/100 WB C Auto (Bld)Ordered By: Chente Conn on 06-26-2024 Immature granulocytes/100 WBC (Bld) 0.300 % 0.0-0.9 [facility] Comment on above: IG% - Immature Granu locytes (promyelocytes, myelocytes and metamyelocytes) > 1% indicates that a LEFT SHIFT is Present. Iron measurement (mass/mass) Ordered By: Chente Conn on 06-26-2024 Iron (Unsp spec) [Mass/Mass] 30 ug/dL Low 65-175 [facility] LH ser/plasOrdered By: Matteo Posadas on 06-26-2024 Lutropin Qn 40.9 m[IU]/mL [facility] Comment on above: FEMALE:Follicular: 1 .9-12.5 mIU/mLMidcycle: 8.7-76.3 mIU/mLLuteal: 0.5-16.9 mIU/mLPost Menopause: 15.9-54.0 mIU/mLMALE:20-70 Years: 1.5-9.3 mIU/mL>70 Years: 3.1-34.6 mIU/mL Laboratory - Chemistry and C hemistry - challengeOrdered By: Chente Conn on 06-26-2024 AST [Catalytic activity/Vol] 12 U/L <38 [facility] MCV (mean corpuscular volume ) determinationOrdered By: Chente Conn on 06-26-2024 MCV (RBC) [Entitic vol] 84.3 fL 80-[address] [facility] Mean corpuscular hemoglobin (MCH) determinationOrdered By: Chente Conn on 06-26-2024 MCH (RBC) [Entitic mass] 27.0 pg 27.0-32.0 [facility] Mean corpuscular hemoglobin concentration (MCHC) determinationOrdered By: Chente Conn on 06-26-2024 MCHC (RBC) [Mass/Vol] 32.0 g/dL 32-36 [facility] Mean platelet volume determi nationOrdered By: Chente oCnn on 06-26-2024 Platelet mean volume (Bld) [Entitic vol] 10.0 fL 6.2-12.0 [facility] Monocyte percentageOrdered B y: Chente Conn on 06-26-2024 Monocytes/100 WBC (Bld) 9.2 % 0-[address] [facility] Neutrophil percentageOrdered By: Chente Conn on 06-26-2024 Neutrophils/100 WBC (Bld) 46.8 % Low 47-70 [facility] No Panel InformationOrdered By: Chente Conn on 06-26-2024 Unsaturated Iron Binding Capacity 216 ug/dL Low 228-428 [facility] Nucleated red blood cell per centageOrdered By: Chente Conn on 06-26-2024 Nucleated RBC/100 WBC (Bld) [Ratio] 0 % 0-5 [facility] Platelet countOrdered By: Areli Conn on 06-26-2024 Platelets (Bld) [#/Vol] 204 10*3/uL 150-450 [facility] Potassium measurement (mass/ volume)Ordered By: Chente Conn on 06-26-2024 Potassium (Unsp spec) [Mass/Vol] 3.8 mmol/L 3.3-5.1 [facility] RBC Auto (Bld) [#/Vol]Ordere d By: Chente Conn on 06-26-2024 RBC (Bld) [#/Vol] 3.82 10*6/uL Low 4.6-6.2 [facility] Serum creatinine measurement (mass/volume)Ordered By: Chente Conn on 06-26-2024 Creatinine [Mass/Vol] 0.27 mg/dL Low 0.70-1.20 [facility] Serum globulin measurementOr dered By: Chente Conn on 06-26-2024 Globulin (S) [Mass/Vol] 4.2 g/dL 2.2-4.2 [facility] Serum glucose measurement (m ass/volume)Ordered By: Chente Conn on 06-26-2024 Glucose [Mass/Vol] 80 mg/dL 70-99 [facility] Serum or plasma alanine salas otransferase (ALT) measurementOrdered By: Chente Conn on 06-26-2024 ALT [Catalytic activity/Vol] 8 U/L <47 [facility] Serum or plasma albumin jacinta urement (mass/volume)Ordered By: Chente Conn on 06-26-2024 Albumin [Mass/Vol] 3.6 g/dL 3.5-5.0 [facility] Serum or plasma albumin/glob ulin mass ratioOrdered By: Chente Conn on 06-26-2024 Albumin/Globulin [Mass ratio] 0.8 {ratio} Low 0.9-2.4 [facility] Serum or plasma alkaline robbi sphatase measurementOrdered By: Chente Conn on 06-26-2024 ALP [Catalytic activity/Vol] 166 U/L High 40-129 [facility] Serum or plasma calcium jacinta urement (mass/volume)Ordered By: Chente Conn on 06-26-2024 Calcium [Mass/Vol] 8.9 mg/dL 7.6-11.0 [facility] Serum or plasma ferritin missy surement (mass/volume)Ordered By: Chente Conn on 06-26-2024 Ferritin [Mass/Vol] 39 ng/mL 37-417 [facility] Serum or plasma iron saturat ion measurement (mass fraction)Ordered By: Chente Conn on 06-26-2024 Iron saturation [Mass fraction] 12.2 % 9-55 [facility] Comment on above: Previous reported re sult: 12.0 %Edited by: KARTHIKEYAN on 06/26/24:1456 AMENDED REPORT 06/26/24 145 IRON SATURATION previously reported as: 12.0 % Serum or plasma prolactin me asurement (mass/volume)Ordered By: Matteo Posadas on 06-26-2024 Prolactin [Mass/Vol] See comment [facility] Comment on above: TEST RESULTS LIMITSP rolactin 31.5 High ng/mL 3.9-22.7 TESTING PERFORMED AT [facility]. ORIGINAL REPORT ON FILE IN LAB CONTAINS ADDITIONAL TEST SITE INFORMATION. Serum or plasma urea nitroge n measurement (mass/volume)Ordered By: Chente Conn on 06-26-2024 Urea nitrogen [Mass/Vol] 11 mg/dL 4-19 [facility] Sodium levelOrdered By: Chente Conn on 06-26-2024 Sodium [Moles/Vol] 136 mmol/L 133-145 [facility] Total proteinOrdered By: Darwin Conn on 06-26-2024 Protein [Mass/Vol] 7.8 g/dL 5.9-8.4 [facility] White blood cell (WBC) count Ordered By: Chente Conn on 06-26-2024 WBC (Bld) [#/Vol] 5.8 10*3/uL 4.4-11.0 [facility] Absolute lymphocyte countOrd ered By: Chente Conn on 05-29-2024 Lymphocytes Auto (Unsp spec) [#/Vol] 2.21 10*3/uL 0.83-4.51 [facility] Absolute neutrophil countOrd ered By: Chente Conn on 05-29-2024 Neutrophils (Bld) [#/Vol] 3.5 10*3/uL 2.0-7.7 [facility] Anion gap in Serum or Plasma Ordered By: Chente Conn on 05-29-2024 Anion gap [Moles/Vol] 12 mmol/L 5-15 [facility] Automated lymphocyte count a s percentage of total leukocytesOrdered By: Chente Conn on 05-29-2024 Lymphocytes/100 WBC Auto (Unsp spec) 32.7 % 19-41 [facility] BUN/creatinine ratioOrdered By: Chente Conn on 05-29-2024 Urea nitrogen/Creatinine [Mass ratio] 37.5 mg/mg High 10-20 [facility] Basophil percentageOrdered B y: Chente Conn on 05-29-2024 Basophils/100 WBC (Bld) 0.3 % 0-[address] [facility] Bilirubin, totalOrdered By: Chente Conn on 05-29-2024 Bilirubin [Mass/Vol] mg/dL 0.00-1.30 [facility] Carbon dioxide, total [Moles /volume] in Central venous bloodOrdered By: Chente Conn on 05-29-2024 CO2 [Moles/Vol] 25.6 mmol/L 21.0-32.0 [facility] Chloride assayOrdered By: Areli Conn on 05-29-2024 Chloride [Moles/Vol] 100 mmol/L 98-108 [facility] Eosinophil percentageOrdered By: Chente Conn on 05-29-2024 Eosinophils/100 WBC (Bld) 5.2 % High 0-5 [facility] Erythrocyte distribution wid th ratioOrdered By: Chente Conn on 05-29-2024 Erythrocyte distribution width (RBC) [Ratio] 16.6 % High 11.6-14.6 [facility] Erythrocyte distribution wid th standard deviationOrdered By: Chente Conn on 05-29-2024 Erythrocyte distribution width (RBC) [Ratio] 51.6 fl High 35.1-43.9 [facility] Glomerular filtration rate ( GFR) estimation/1.73 sq m using serum, plasma, or whole bOrdered By: Chente Conn on 05-29-2024 GFR/1.73 sq M.predicted among non-blacks MDRD (S/P/Bld) [Vol rate/Area] 147 mL/min/{1.73_m2} >60 [facility] Comment on above: mL/min/1.73m2 CKD-EP I Creatinine Equation (2020) Hematocrit Auto (Bld) [Volum e fraction]Ordered By: Chente Conn on 05-29-2024 Hematocrit (Bld) [Volume fraction] 31.8 % Low 40-54 [facility] Hemoglobin measurementOrdere d By: Chente Conn on 05-29-2024 Hemoglobin (Bld) [Mass/Vol] 10.0 g/dL Low 13.0-16.5 [facility] Immature granulocytes/100 WB C Auto (Bld)Ordered By: Chente Conn on 05-29-2024 Immature granulocytes/100 WBC (Bld) 0.300 % 0.0-0.9 [facility] Comment on above: IG% - Immature Granu locytes (promyelocytes, myelocytes and metamyelocytes) > 1% indicates that a LEFT SHIFT is Present. Laboratory - Chemistry and C hemistry - challengeOrdered By: Chente Conn on 05-29-2024 AST [Catalytic activity/Vol] 14 U/L <38 [facility] MCV (mean corpuscular volume ) determinationOrdered By: Chente Conn on 05-29-2024 MCV (RBC) [Entitic vol] 84.8 fL 80-[address] [facility] Mean corpuscular hemoglobin (MCH) determinationOrdered By: Chente Conn on 05-29-2024 MCH (RBC) [Entitic mass] 26.7 pg Low 27.0-32.0 [facility] Mean corpuscular hemoglobin concentration (MCHC) determinationOrdered By: Chente Conn on 05-29-2024 MCHC (RBC) [Mass/Vol] 31.4 g/dL Low 32-36 [facility] Mean platelet volume determi nationOrdered By: Chente Conn on 05-29-2024 Platelet mean volume (Bld) [Entitic vol] 10.1 fL 6.2-12.0 [facility] Monocyte percentageOrdered B y: Chente Conn on 05-29-2024 Monocytes/100 WBC (Bld) 9.6 % 0-[address] [facility] Neutrophil percentageOrdered By: Chente Conn on 05-29-2024 Neutrophils/100 WBC (Bld) 51.9 % 47-70 [facility] Nucleated red blood cell per centageOrdered By: Chente Conn on 05-29-2024 Nucleated RBC/100 WBC (Bld) [Ratio] 0 % 0-5 [facility] Platelet countOrdered By: Areli Conn on 05-29-2024 Platelets (Bld) [#/Vol] 182 10*3/uL 150-450 [facility] Potassium measurement (mass/ volume)Ordered By: Chente Conn on 05-29-2024 Potassium (Unsp spec) [Mass/Vol] 3.7 mmol/L 3.3-5.1 [facility] RBC Auto (Bld) [#/Vol]Ordere d By: Chente Conn on 05-29-2024 RBC (Bld) [#/Vol] 3.75 10*6/uL Low 4.6-6.2 [facility] Serum creatinine measurement (mass/volume)Ordered By: hCente Conn on 05-29-2024 Creatinine [Mass/Vol] 0.34 mg/dL Low 0.70-1.20 [facility] Serum globulin measurementOr dered By: Chente Conn on 05-29-2024 Globulin (S) [Mass/Vol] 3.7 g/dL 2.2-4.[address] [facility] Serum glucose measurement (m ass/volume)Ordered By: Chente Conn on 05-29-2024 Glucose [Mass/Vol] 107 mg/dL High 70-99 [facility] Serum or plasma alanine salas otransferase (ALT) measurementOrdered By: Chente Conn on 05-29-2024 ALT [Catalytic activity/Vol] 11 U/L <47 [facility] Serum or plasma albumin jacinta urement (mass/volume)Ordered By: Chente Conn on 05-29-2024 Albumin [Mass/Vol] 3.5 g/dL 3.5-5.0 [facility] Serum or plasma albumin/glob ulin mass ratioOrdered By: Chente Conn on 05-29-2024 Albumin/Globulin [Mass ratio] 0.9 {ratio} 0.9-2.4 [facility] Serum or plasma alkaline robbi sphatase measurementOrdered By: Chente Conn on 05-29-2024 ALP [Catalytic activity/Vol] 131 U/L High 40-129 [facility] Serum or plasma calcium jacinta urement (mass/volume)Ordered By: Chente Conn on 05-29-2024 Calcium [Mass/Vol] 8.8 mg/dL 7.6-11.0 [facility] Serum or plasma urea nitroge n measurement (mass/volume)Ordered By: Chente oCnn on 05-29-2024 Urea nitrogen [Mass/Vol] 13 mg/dL 4-19 [facility] Sodium levelOrdered By: Chente Conn on 05-29-2024 Sodium [Moles/Vol] 137 mmol/L 133-145 [facility] Total proteinOrdered By: Darwin Conn on 05-29-2024 Protein [Mass/Vol] 7.1 g/dL 5.9-8.4 [facility] White blood cell (WBC) count Ordered By: Chente Conn on 05-29-2024 WBC (Bld) [#/Vol] 6.8 10*3/uL 4.4-11.0 [facility] Gram stainOrdered By: Shabbir Kee on 05-09-2024 Microscopic observation Gram stain Nom (Unsp spec) [facility] Microbial respiratory cultur eOrdered By: Valarie Kee on 05-09-2024 Microorganism identified Cx Nom (Unsp spec) Pseudomonas aeruginosa Abnormal [facility] Microorganism identified Cx Nom (Unsp spec) Pseudomonas aeruginosa#2 Abnormal [facility] Microorganism identified Cx Nom (Unsp spec) Proteus mirabilis Abnormal [facility] Microorganism identified Cx Nom (Unsp spec)Ordered By: Valarie Kee on 05-09-2024 Respiratory Culture Pseudomonas aeruginosa Abnormal [facility] Respiratory Culture Pseudomonas aeruginosa#2 Abnormal [facility] Respiratory Culture Proteus mirabilis Abnormal [facility] Absolute lymphocyte countOrd ered By: Chente Conn on 05-01-2024 Lymphocytes Auto (Unsp spec) [#/Vol] 2.20 10*3/uL 0.83-4.51 [facility] Absolute neutrophil countOrd ered By: Chente Conn on 05-01-2024 Neutrophils (Bld) [#/Vol] 3.1 10*3/uL 2.0-7.7 [facility] Anion gap in Serum or Plasma Ordered By: Chente Conn on 05-01-2024 Anion gap [Moles/Vol] 10 mmol/L 5-15 [facility] Automated lymphocyte count a s percentage of total leukocytesOrdered By: Chente Conn on 05-01-2024 Lymphocytes/100 WBC Auto (Unsp spec) 35.4 % 19-41 [facility] BUN/creatinine ratioOrdered By: Chente Conn on 05-01-2024 Urea nitrogen/Creatinine [Mass ratio] 40.6 mg/mg High 10-20 [facility] Basophil percentageOrdered B y: Chente Conn on 05-01-2024 Basophils/100 WBC (Bld) 0.2 % 0-1 [facility] Carbon dioxide, total [Moles /volume] in Central venous bloodOrdered By: Chente Conn on 05-01-2024 CO2 [Moles/Vol] 27.4 mmol/L 21.0-32.0 [facility] Chloride assayOrdered By: Areli Conn on 05-01-2024 Chloride [Moles/Vol] 98 mmol/L 98-108 [facility] Eosinophil percentageOrdered By: Chente Conn on 05-01-2024 Eosinophils/100 WBC (Bld) 4.7 % 0-5 [facility] Erythrocyte distribution wid th ratioOrdered By: Chente Conn on 05-01-2024 Erythrocyte distribution width (RBC) [Ratio] 16.6 % High 11.6-14.6 [facility] Erythrocyte distribution wid th standard deviationOrdered By: Chente Conn on 05-01-2024 Erythrocyte distribution width (RBC) [Entitic vol] 50.4 fL High 35.1-43.9 [facility] Erythrocyte distribution width (RBC) [Ratio] 50.4 fl High 35.1-43.9 [facility] GFR/1.73 sq M.predicted joey g non-blacks MDRD (S/P/Bld) [Vol rate/Area]Ordered By: Chente Conn on 05-01-2024 Estimated GFR (MDRD) Non-Af Amer 154 >60 [facility] Comment on above: mL/min/1.73m2 CKD-EP I Creatinine Equation (2020) Glomerular filtration rate ( GFR) estimation/1.73 sq m using serum, plasma, or whole bOrdered By: Chente Conn on 05-01-2024 GFR/1.73 sq M.predicted among non-blacks MDRD (S/P/Bld) [Vol rate/Area] 154 mL/min/{1.73_m2} >60 [facility] Comment on above: mL/min/1.73m2 CKD-EP I Creatinine Equation (2020) Hematocrit Auto (Bld) [Volum e fraction]Ordered By: Chente Conn on 05-01-2024 Hematocrit (Bld) [Volume fraction] 33.5 % Low 40-54 [facility] Hemoglobin measurementOrdere d By: Chente Conn on 05-01-2024 Hemoglobin (Bld) [Mass/Vol] 10.5 g/dL Low 13.0-16.5 [facility] Immature granulocytes/100 WB C Auto (Bld)Ordered By: Chente Conn on 05-01-2024 Immature granulocytes/100 WBC (Bld) 0.200 % 0.0-0.9 [facility] Comment on above: IG% - Immature Granu locytes (promyelocytes, myelocytes and metamyelocytes) > 1% indicates that a LEFT SHIFT is Present. Lymphocytes Auto (Unsp spec) [#/Vol]Ordered By: Chente Conn on 05-01-2024 Lymphocytes (Bld) [#/Vol] 2.20 10*3/uL 0.83-4.5 1 [facility] Lymphocytes/100 WBC Auto (Un sp spec)Ordered By: Chente Conn on 05-01-2024 Lymphocytes/100 WBC (Bld) 35.4 % 19-41 [facility] MCV (mean corpuscular volume ) determinationOrdered By: Chente Conn on 05-01-2024 MCV (RBC) [Entitic vol] 82.7 fL 80-[address] [facility] Mean corpuscular hemoglobin (MCH) determinationOrdered By: Chente Conn on 05-01-2024 MCH (RBC) [Entitic mass] 25.9 pg Low 27.0-32.0 [facility] Mean corpuscular hemoglobin concentration (MCHC) determinationOrdered By: Chente Conn on 05-01-2024 MCHC (RBC) [Mass/Vol] 31.3 g/dL Low 32-36 [facility] Mean platelet volume determi nationOrdered By: Chente Conn on 05-01-2024 Platelet mean volume (Bld) [Entitic vol] 10.5 fL 6.2-12.0 [facility] Monocyte percentageOrdered B y: Chente Conn on 05-01-2024 Monocytes/100 WBC (Bld) 10.3 % High 0-[address] [facility] Neutrophil percentageOrdered By: Chente Conn on 05-01-2024 Neutrophils/100 WBC (Bld) 49.2 % 47-70 [facility] Nucleated red blood cell per centageOrdered By: Chente Conn on 05-01-2024 Nucleated RBC/100 WBC (Bld) [Ratio] 0 % 0-5 [facility] Platelet countOrdered By: Areli Conn on 05-01-2024 Platelets (Bld) [#/Vol] 209 10*3/uL 150-450 [facility] Potassium (Unsp spec) [Mass/ Vol]Ordered By: Chente Conn on 05-01-2024 Potassium [Moles/Vol] 4.3 mmol/L 3.3-5.1 [facility] Potassium measurement (mass/ volume)Ordered By: Chente Conn on 05-01-2024 Potassium (Unsp spec) [Mass/Vol] 4.3 mmol/L 3.3-5.1 [facility] RBC Auto (Bld) [#/Vol]Ordere d By: Chente Conn on 05-01-2024 RBC (Bld) [#/Vol] 4.05 10*6/uL Low 4.6-6.2 [facility] Serum creatinine measurement (mass/volume)Ordered By: Chente Conn on 05-01-2024 Creatinine [Mass/Vol] 0.29 mg/dL Low 0.70-1.20 [facility] Serum glucose measurement (m ass/volume)Ordered By: Chente Conn on 05-01-2024 Glucose [Mass/Vol] 82 mg/dL 70-99 [facility] Serum or plasma calcium jacinta urement (mass/volume)Ordered By: Chente Conn on 05-01-2024 Calcium [Mass/Vol] 8.8 mg/dL 7.6-11.0 [facility] Serum or plasma urea nitroge n measurement (mass/volume)Ordered By: Chente Conn on 05-01-2024 Urea nitrogen [Mass/Vol] 12 mg/dL 4-19 [facility] Sodium levelOrdered By: Chente Conn on 05-01-2024 Sodium [Moles/Vol] 135 mmol/L 133-145 [facility] White blood cell (WBC) count Ordered By: Chente Conn on 05-01-2024 WBC (Bld) [#/Vol] 6.2 10*3/uL 4.4-11.0 [facility] Absolute lymphocyte countOrd ered By: Chente Conn on 04-03-2024 Lymphocytes Auto (Unsp spec) [#/Vol] 2.12 10*3/uL 0.83-4.51 [facility] Absolute neutrophil countOrd ered By: Chente Conn on 04-03-2024 Neutrophils (Bld) [#/Vol] 2.2 10*3/uL 2.0-7.7 [facility] Automated lymphocyte count a s percentage of total leukocytesOrdered By: Chente Conn on 04-03-2024 Lymphocytes/100 WBC Auto (Unsp spec) 41.2 % High 19-41 [facility] Basophil percentageOrdered B y: Chente Conn on 04-03-2024 Basophils/100 WBC (Bld) 0.2 % 0-[address] [facility] Blood urea nitrogen (BUN)/cr eatinine ratioOrdered By: Chente Conn on 04-03-2024 Urea nitrogen/Creatinine [Mass ratio] 52.6 mg/mg High 10-20 [facility] Carbon dioxide measurementOr dered By: Chente Conn on 04-03-2024 CO2 [Moles/Vol] 32.0 mmol/L 21.0-32.0 [facility] Chloride measurementOrdered By: Chente Conn on 04-03-2024 Chloride [Moles/Vol] 102 mmol/L 98-107 [facility] Eosinophil percentageOrdered By: Chente Conn on 04-03-2024 Eosinophils/100 WBC (Bld) 4.9 % 0-5 [facility] Erythrocyte distribution wid th ratioOrdered By: Chente Conn on 04-03-2024 Erythrocyte distribution width (RBC) [Ratio] 15.6 % High 11.6-14.6 [facility] Erythrocyte distribution wid th standard deviationOrdered By: Chente Conn on 04-03-2024 Erythrocyte distribution width (RBC) [Entitic vol] 46.3 fL High 35.1-43.9 [facility] Erythrocyte distribution width (RBC) [Ratio] 46.3 fl High 35.1-43.9 [facility] Estimated glomerular filtrat ion rate (GFR) AmericanOrdered By: Chente Conn on 04-03-2024 Estimated GFR (MDRD) Amer 641 mL/min >60 [facility] Comment on above: GFR Calc Glomerular filtration rate ( GFR) estimationOrdered By: Chente Conn on 04-03-2024 Estimated GFR (MDRD) Non-Af Amer 530 mL/min >60 [facility] Comment on above: Non- GFR Calc GFR/1.73 sq M.predicted among non-blacks MDRD (S/P/Bld) [Vol rate/Area] 530 mL/min/{1.73_m2} >60 [facility] Comment on above: Non- GFR Calc Glucose measurementOrdered B y: Chente Conn on 04-03-2024 Glucose [Mass/Vol] 87 mg/dL 74-106 [facility] Hematocrit Auto (Bld) [Volum e fraction]Ordered By: Chente Conn on 04-03-2024 Hematocrit (Bld) [Volume fraction] 30.9 % Low 40-54 [facility] Hemoglobin measurementOrdere d By: Chente Conn on 04-03-2024 Hemoglobin (Bld) [Mass/Vol] 9.8 g/dL Low 13.0-16.5 [facility] Immature granulocytes/100 WB C Auto (Bld)Ordered By: Chente Conn on 04-03-2024 Immature granulocytes/100 WBC (Bld) 0.200 % 0.0-0.9 [facility] Comment on above: IG% - Immature Granu locytes (promyelocytes, myelocytes and metamyelocytes) > 1% indicates that a LEFT SHIFT is Present. Lymphocytes Auto (Unsp spec) [#/Vol]Ordered By: Chente Conn on 04-03-2024 Lymphocytes (Bld) [#/Vol] 2.12 10*3/uL 0.83-4.5 1 [facility] Lymphocytes/100 WBC Auto (Un sp spec)Ordered By: Chente Conn on 04-03-2024 Lymphocytes/100 WBC (Bld) 41.2 % High 19-41 [facility] MCV (mean corpuscular volume ) determinationOrdered By: Chente Conn on 04-03-2024 MCV (RBC) [Entitic vol] 82.8 fL 80-[address] [facility] Mean corpuscular hemoglobin (MCH) determinationOrdered By: Chente Conn on 04-03-2024 MCH (RBC) [Entitic mass] 26.3 pg Low 27.0-32.0 [facility] Mean corpuscular hemoglobin concentration (MCHC) determinationOrdered By: Chente Conn on 04-03-2024 MCHC (RBC) [Mass/Vol] 31.7 g/dL Low 32-36 [facility] Mean platelet volume determi nationOrdered By: Chente Conn on 04-03-2024 Platelet mean volume (Bld) [Entitic vol] 9.8 fL 6.2-12.0 [facility] Monocyte percentageOrdered B y: Chente Conn on 04-03-2024 Monocytes/100 WBC (Bld) 10.9 % High 0-[address] [facility] Neutrophil percentageOrdered By: Chente Conn on 04-03-2024 Neutrophils/100 WBC (Bld) 42.6 % Low 47-70 [facility] Nucleated red blood cell per centageOrdered By: Chente Conn on 04-03-2024 Nucleated RBC/100 WBC (Bld) [Ratio] 0 % 0-5 [facility] Platelet countOrdered By: Areli Conn on 04-03-2024 Platelets (Bld) [#/Vol] 170 10*3/uL 150-450 [facility] Potassium measurementOrdered By: Chente Conn on 04-03-2024 Potassium [Moles/Vol] 3.8 mmol/L 3.5-5.1 [facility] RBC Auto (Bld) [#/Vol]Ordere d By: Chente Conn on 04-03-2024 RBC (Bld) [#/Vol] 3.73 10*6/uL Low 4.6-6.2 [facility] Serum anion gap measurementO rdered By: Chente Conn on 04-03-2024 Anion gap [Moles/Vol] 5 mmol/L 5-15 [facility] Serum or plasma calcium jacinta urement (mass/volume)Ordered By: Chente Conn on 04-03-2024 Calcium [Mass/Vol] 8.4 mg/dL Low 8.5-10.1 [facility] Serum or plasma creatinine m easurement (mass/volume)Ordered By: Chente Conn on 04-03-2024 Creatinine [Mass/Vol] 0.21 mg/dL Low 0.70-1.30 [facility] Comment on above: The validity of the calculated GFR & GFRAA in patients over 70 years has not been determined. Clinical correlation is essential. Serum or plasma urea nitroge n measurement (mass/volume)Ordered By: Chente Conn on 04-03-2024 Urea nitrogen [Mass/Vol] 11 mg/dL 7-18 [facility] Sodium levelOrdered By: Chente Conn on 04-03-2024 Sodium [Moles/Vol] 138 mmol/L 136-145 [facility] White blood cell (WBC) count Ordered By: Chente Conn on 04-03-2024 WBC (Bld) [#/Vol] 5.1 10*3/uL 4.4-11.0 [facility] Absolute lymphocyte countOrd ered By: Chente Conn on 03-08-2024 Lymphocytes Auto (Unsp spec) [#/Vol] 1.74 10*3/uL 0.83-4.51 [facility] Absolute neutrophil countOrd ered By: Chente Conn on 03-08-2024 Neutrophils (Bld) [#/Vol] 2.6 10*3/uL 2.0-7.7 [facility] Automated lymphocyte count a s percentage of total leukocytesOrdered By: Chente Conn on 03-08-2024 Lymphocytes/100 WBC Auto (Unsp spec) 33.7 % 19-41 [facility] Basophil percentageOrdered B y: Chente Conn on 03-08-2024 Basophils/100 WBC (Bld) 0.2 % 0-[address] [facility] Blood urea nitrogen (BUN)/cr eatinine ratioOrdered By: Chente Conn on 03-08-2024 Urea nitrogen/Creatinine [Mass ratio] 53.2 mg/mg High 10-20 [facility] Carbon dioxide measurementOr dered By: Chente Conn on 03-08-2024 CO2 [Moles/Vol] 31.0 mmol/L 21.0-32.0 [facility] Chloride measurementOrdered By: Chente Conn on 03-08-2024 Chloride [Moles/Vol] 102 mmol/L 98-107 [facility] Eosinophil percentageOrdered By: Chente Conn on 03-08-2024 Eosinophils/100 WBC (Bld) 5.8 % High 0-5 [facility] Erythrocyte distribution wid th ratioOrdered By: Chente Conn on 03-08-2024 Erythrocyte distribution width (RBC) [Ratio] 14.4 % 11.6-14.6 [facility] Erythrocyte distribution wid th standard deviationOrdered By: Chente Conn on 03-08-2024 Erythrocyte distribution width (RBC) [Entitic vol] 43.7 fL 35.1-43.9 [facility] Erythrocyte distribution width (RBC) [Ratio] 43.7 fl 35.1-43.9 [facility] Estimated glomerular filtrat ion rate (GFR) AmericanOrdered By: Chente Conn on 03-08-2024 Estimated GFR (MDRD) Amer 454 mL/min >60 [facility] Comment on above: GFR Calc Glomerular filtration rate ( GFR) estimationOrdered By: Chente Conn on 03-08-2024 Estimated GFR (MDRD) Non-Af Amer 375 mL/min >60 [facility] Comment on above: Non- GFR Calc GFR/1.73 sq M.predicted among non-blacks MDRD (S/P/Bld) [Vol rate/Area] 375 mL/min/{1.73_m2} >60 [facility] Comment on above: Non- GFR Calc Glucose measurementOrdered B y: Chente Conn on 03-08-2024 Glucose [Mass/Vol] 112 mg/dL High 74-106 [facility] Comment on above: Fasting Glucose resu lt from 100 to 125 mg/dL suggests IMPAIRED HOMEOSTASIS per A.D.A. criteria. Hematocrit Auto (Bld) [Volum e fraction]Ordered By: Chente Conn on 03-08-2024 Hematocrit (Bld) [Volume fraction] 31.3 % Low 40-54 [facility] Hemoglobin measurementOrdere d By: Chente Conn on 03-08-2024 Hemoglobin (Bld) [Mass/Vol] 9.7 g/dL Low 13.0-16.5 [facility] Immature granulocytes/100 WB C Auto (Bld)Ordered By: Chente Conn on 03-08-2024 Immature granulocytes/100 WBC (Bld) 0.200 % 0.0-0.9 [facility] Comment on above: IG% - Immature Granu locytes (promyelocytes, myelocytes and metamyelocytes) > 1% indicates that a LEFT SHIFT is Present. Lymphocytes Auto (Unsp spec) [#/Vol]Ordered By: Chente Conn on 03-08-2024 Lymphocytes (Bld) [#/Vol] 1.74 10*3/uL 0.83-4.5 1 [facility] Lymphocytes/100 WBC Auto (Un sp spec)Ordered By: Chente Conn on 03-08-2024 Lymphocytes/100 WBC (Bld) 33.7 % 19-41 [facility] MCV (mean corpuscular volume ) determinationOrdered By: Chente Conn on 03-08-2024 MCV (RBC) [Entitic vol] 83.7 fL 80-[address] [facility] Mean corpuscular hemoglobin (MCH) determinationOrdered By: Chente Conn on 03-08-2024 MCH (RBC) [Entitic mass] 25.9 pg Low 27.0-32.0 [facility] Mean corpuscular hemoglobin concentration (MCHC) determinationOrdered By: Chente Conn on 03-08-2024 MCHC (RBC) [Mass/Vol] 31.0 g/dL Low 32-36 [facility] Mean platelet volume determi nationOrdered By: Chente Conn on 03-08-2024 Platelet mean volume (Bld) [Entitic vol] 10.7 fL 6.2-12.0 [facility] Monocyte percentageOrdered B y: Chente Conn on 03-08-2024 Monocytes/100 WBC (Bld) 9.7 % 0-[address] [facility] Neutrophil percentageOrdered By: Chente Conn on 03-08-2024 Neutrophils/100 WBC (Bld) 50.4 % 47-70 [facility] Nucleated red blood cell per centageOrdered By: Chente Conn on 03-08-2024 Nucleated RBC/100 WBC (Bld) [Ratio] 0 % 0-5 [facility] Platelet countOrdered By: Areli Conn on 03-08-2024 Platelets (Bld) [#/Vol] 177 10*3/uL 150-450 [facility] Potassium measurementOrdered By: Chente Conn on 03-08-2024 Potassium [Moles/Vol] 3.5 mmol/L 3.5-5.1 [facility] RBC Auto (Bld) [#/Vol]Ordere d By: Chente Conn on 03-08-2024 RBC (Bld) [#/Vol] 3.74 10*6/uL Low 4.6-6.2 [facility] Serum anion gap measurementO rdered By: Chente Conn on 03-08-2024 Anion gap [Moles/Vol] 5 mmol/L 5-15 [facility] Serum or plasma calcium jacinta urement (mass/volume)Ordered By: Chente Conn on 03-08-2024 Calcium [Mass/Vol] 8.3 mg/dL Low 8.5-10.1 [facility] Serum or plasma creatinine m easurement (mass/volume)Ordered By: Chente Conn on 03-08-2024 Creatinine [Mass/Vol] 0.28 mg/dL Low 0.70-1.30 [facility] Comment on above: The validity of the calculated GFR & GFRAA in patients over 70 years has not been determined. Clinical correlation is essential. Serum or plasma urea nitroge n measurement (mass/volume)Ordered By: Chente Conn on 03-08-2024 Urea nitrogen [Mass/Vol] 15 mg/dL 7-18 [facility] Sodium levelOrdered By: Chente Conn on 03-08-2024 Sodium [Moles/Vol] 139 mmol/L 136-145 [facility] White blood cell (WBC) count Ordered By: Chente Conn on 03-08-2024 WBC (Bld) [#/Vol] 5.2 10*3/uL 4.4-11.0 [facility] Absolute neutrophil countOrd ered By: Chente Conn on 02-24-2024 Neutrophils (Bld) [#/Vol] 2.3 10*3/uL 2.0-7.7 [facility] Basophil percentageOrdered B y: Chente Conn on 02-24-2024 Basophils/100 WBC (Bld) 0.2 % 0-[address] [facility] Blood urea nitrogen (BUN)/cr eatinine ratioOrdered By: Chente Conn on 02-24-2024 Urea nitrogen/Creatinine [Mass ratio] 53.8 mg/mg High 10-20 [facility] Carbon dioxide measurementOr dered By: Chente Conn on 02-24-2024 CO2 [Moles/Vol] 29.0 mmol/L 21.0-32.0 [facility] Chloride measurementOrdered By: Chente Conn on 02-24-2024 Chloride [Moles/Vol] 104 mmol/L 98-107 [facility] Eosinophil percentageOrdered By: Chente Conn on 02-24-2024 Eosinophils/100 WBC (Bld) 5.8 % High 0-5 [facility] Erythrocyte distribution wid th ratioOrdered By: Chente Conn on 02-24-2024 Erythrocyte distribution width (RBC) [Ratio] 14.1 % 11.6-14.6 [facility] Erythrocyte distribution wid th standard deviationOrdered By: Chente Conn on 02-24-2024 Erythrocyte distribution width (RBC) [Entitic vol] 43.2 fL 35.1-43.9 [facility] Estimated glomerular filtrat ion rate (GFR) AmericanOrdered By: Chente Conn on 02-24-2024 Estimated GFR (MDRD) Amer 460 mL/min >60 [facility] Comment on above: GFR Calc Glomerular filtration rate ( GFR) estimationOrdered By: Chente Conn on 02-24-2024 Estimated GFR (MDRD) Non-Af Amer 380 mL/min >60 [facility] Comment on above: Non- GFR Calc Glucose measurementOrdered B y: Chente Conn on 02-24-2024 Glucose [Mass/Vol] 102 mg/dL 74-106 [facility] Comment on above: Fasting Glucose resu lt from 100 to 125 mg/dL suggests IMPAIRED HOMEOSTASIS per A.D.A. criteria. Hematocrit Auto (Bld) [Volum e fraction]Ordered By: Chente Conn on 02-24-2024 Hematocrit (Bld) [Volume fraction] 32.6 % Low 40-54 [facility] Hemoglobin measurementOrdere d By: Chente Conn on 02-24-2024 Hemoglobin (Bld) [Mass/Vol] 9.8 g/dL Low 13.0-16.5 [facility] Immature granulocytes/100 WB C Auto (Bld)Ordered By: Chente Conn on 02-24-2024 Immature granulocytes/100 WBC (Bld) 0.200 % 0.0-0.9 [facility] Comment on above: IG% - Immature Granu locytes (promyelocytes, myelocytes and metamyelocytes) > 1% indicates that a LEFT SHIFT is Present. Lymphocytes Auto (Unsp spec) [#/Vol]Ordered By: Chente Conn on 02-24-2024 Lymphocytes (Bld) [#/Vol] 1.93 10*3/uL 0.83-4.5 1 [facility] Lymphocytes/100 WBC Auto (Un sp spec)Ordered By: Chente Conn on 02-24-2024 Lymphocytes/100 WBC (Bld) 38.5 % 19-41 [facility] MCV (mean corpuscular volume ) determinationOrdered By: Chente Conn on 02-24-2024 MCV (RBC) [Entitic vol] 84.9 fL 80-[address] [facility] Mean corpuscular hemoglobin (MCH) determinationOrdered By: Chente Conn on 02-24-2024 MCH (RBC) [Entitic mass] 25.5 pg Low 27.0-32.0 [facility] Mean corpuscular hemoglobin concentration (MCHC) determinationOrdered By: Chente Conn on 02-24-2024 MCHC (RBC) [Mass/Vol] 30.1 g/dL Low 32-36 [facility] Mean platelet volume determi nationOrdered By: Chente Conn on 02-24-2024 Platelet mean volume (Bld) [Entitic vol] 9.9 fL 6.2-12.0 [facility] Monocyte percentageOrdered B y: Chente Conn on 02-24-2024 Monocytes/100 WBC (Bld) 8.8 % 0-[address] [facility] Neutrophil percentageOrdered By: Chente Conn on 02-24-2024 Neutrophils/100 WBC (Bld) 46.5 % Low 47-70 [facility] Nucleated red blood cell per centageOrdered By: Chente Conn on 02-24-2024 Nucleated RBC/100 WBC (Bld) [Ratio] 0 % 0-5 [facility] Platelet countOrdered By: Areli Conn on 02-24-2024 Platelets (Bld) [#/Vol] 209 10*3/uL 150-450 [facility] Potassium measurementOrdered By: Chente Conn on 02-24-2024 Potassium [Moles/Vol] 3.7 mmol/L 3.5-5.1 [facility] RBC Auto (Bld) [#/Vol]Ordere d By: Chente Conn on 02-24-2024 RBC (Bld) [#/Vol] 3.84 10*6/uL Low 4.6-6.2 [facility] Serum anion gap measurementO rdered By: Chente Conn on 02-24-2024 Anion gap [Moles/Vol] 6 mmol/L 5-15 [facility] Serum or plasma calcium jacinta urement (mass/volume)Ordered By: Chente Conn on 02-24-2024 Calcium [Mass/Vol] 8.2 mg/dL Low 8.5-10.1 [facility] Serum or plasma creatinine m easurement (mass/volume)Ordered By: Chente Conn on 02-24-2024 Creatinine [Mass/Vol] 0.28 mg/dL Low 0.70-1.30 [facility] Comment on above: The validity of the calculated GFR & GFRAA in patients over 70 years has not been determined. Clinical correlation is essential. Serum or plasma urea nitroge n measurement (mass/volume)Ordered By: Chente Conn on 02-24-2024 Urea nitrogen [Mass/Vol] 15 mg/dL 7-18 [facility] Sodium levelOrdered By: Chente Conn on 02-24-2024 Sodium [Moles/Vol] 138 mmol/L 136-145 [facility] White blood cell (WBC) count Ordered By: Chente Conn on 02-24-2024 WBC (Bld) [#/Vol] 5.0 10*3/uL 4.4-11.0 [facility] Absolute neutrophil countOrd ered By: Racquel Moss on 2024 Neutrophils (Bld) [#/Vol] 5.0 10*3/uL 2.0-7.7 [facility] Basophil percentageOrdered B y: Racquel Moss on 2024 Basophils/100 WBC (Bld) 0.2 % 0-[address] [facility] Blood cultureOrdered By: Jessi Moss on 2024 Bacteria identified Cx Nom (Bld) No growth in 5 days. [facility] Blood urea nitrogen (BUN)/cr eatinine ratioOrdered By: Racquel Moss on 2024 Urea nitrogen/Creatinine [Mass ratio] 24.2 mg/mg High 10-20 [facility] C-reactive protein measureme nt by high sensitivity methodOrdered By: Racquel Moss on 2024 C-Reactive Protein Extended Range 73.50 mg/L High 0.0-3.0 [facility] Comment on above: C-Reactive Protein ( CRP) provides useful information for thediagnosis, therapy and monitoring of inflammatory processesand associated diseases. For the evaluation of Relative Riskfor Cardiovascular Disease, a High Sensitivity CRP (HSCRP)should be ordered. Carbon dioxide measurementOr dered By: Racquel Moss on 2024 CO2 [Moles/Vol] 30.0 mmol/L 21.0-32.0 [facility] Chloride measurementOrdered By: Racquel Moss on 2024 Chloride [Moles/Vol] 100 mmol/L 98-107 [facility] Eosinophil percentageOrdered By: Racquel Moss on 2024 Eosinophils/100 WBC (Bld) 0.6 % 0-5 [facility] Erythrocyte distribution wid th ratioOrdered By: Racquel Moss on 2024 Erythrocyte distribution width (RBC) [Ratio] 13.8 % 11.6-14.6 [facility] Erythrocyte distribution wid th standard deviationOrdered By: Racquel Moss on 2024 Erythrocyte distribution width (RBC) [Entitic vol] 42.7 fL 35.1-43.9 [facility] Erythrocyte sedimentation ra teOrdered By: Racquel Moss on 2024 ESR (Bld) [Velocity] 47 mm/h High 0-20 [facility] Estimated glomerular filtrat ion rate (GFR) AmericanOrdered By: Racquel Moss on 2024 Estimated GFR (MDRD) Amer 379 mL/min >60 [facility] Comment on above: GFR Calc Estimation of creatinine poly aranceOrdered By: Racquel Moss on 2024 Estimated Creatinine Clearance Calc 265.33 ml/min [facility] Glomerular filtration rate ( GFR) estimationOrdered By: Racquel Moss on 2024 Estimated GFR (MDRD) Non-Af Amer 313 mL/min >60 [facility] Comment on above: Non- GFR Calc Glucose measurementOrdered B y: Racquel Moss on 2024 Glucose [Mass/Vol] 117 mg/dL High 74-106 [facility] Comment on above: Fasting Glucose resu lt from 100 to 125 mg/dL suggests IMPAIRED HOMEOSTASIS per A.D.A. criteria. Hematocrit Auto (Bld) [Volum e fraction]Ordered By: Racquel Moss on 2024 Hematocrit (Bld) [Volume fraction] 33.5 % Low 40-54 [facility] Hemoglobin measurementOrdere d By: Racquel Moss on 2024 Hemoglobin (Bld) [Mass/Vol] 10.8 g/dL Low 13.0-16.5 [facility] Immature granulocytes/100 WB C Auto (Bld)Ordered By: Racquel Moss on 2024 Immature granulocytes/100 WBC (Bld) 0.600 % 0.0-0.9 [facility] Comment on above: IG% - Immature Granu locytes (promyelocytes, myelocytes and metamyelocytes) > 1% indicates that a LEFT SHIFT is Present. Lactic acid measurementOrder ed By: Racquel Moss on 2024 Lactate [Moles/Vol] 2.0 mmol/L 0.4-2.0 [facility] Comment on above: Critical Result(s) C alled at: 18:05:46 2024 by: SHONDA REAVES. Results read back by Lakesha Steven Lymphocytes Auto (Unsp spec) [#/Vol]Ordered By: Racquel Moss on 2024 Lymphocytes (Bld) [#/Vol] 0.82 10*3/uL Low 0.83-4.5 1 [facility] Lymphocytes/100 WBC Auto (Un sp spec)Ordered By: Racquel Moss on 2024 Lymphocytes/100 WBC (Bld) 12.4 % Low 19-41 [facility] MCV (mean corpuscular volume ) determinationOrdered By: Racquel Moss on 2024 MCV (RBC) [Entitic vol] 84.6 fL 80-[address] [facility] Mean corpuscular hemoglobin (MCH) determinationOrdered By: [facility] on 2024 MCH (RBC) [Entitic mass] 27.3 pg 27.0-32.0 [facility] Mean corpuscular hemoglobin concentration (MCHC) determinationOrdered By: Racquel Moss on 2024 MCHC (RBC) [Mass/Vol] 32.2 g/dL 32-36 [facility] Mean platelet volume determi nationOrdered By: Racquel Moss on 2024 Platelet mean volume (Bld) [Entitic vol] 10.0 fL 6.2-12.0 [facility] Monocyte percentageOrdered B y: Racquel Moss on 2024 Monocytes/100 WBC (Bld) 11.2 % High 0-[address] [facility] Neutrophil percentageOrdered By: Remus Ungur on 2024 Neutrophils/100 WBC (Bld) 75.0 % High 47-70 [facility] Nucleated red blood cell per centageOrdered By: Remus Ungur on 2024 Nucleated RBC/100 WBC (Bld) [Ratio] 0 % 0-5 [facility] Platelet countOrdered By: Re dennis Moss on 2024 Platelets (Bld) [#/Vol] 113 10*3/uL Low 150-450 [facility] Potassium measurementOrdered By: Racquel Moss on 2024 Potassium [Moles/Vol] 4.0 mmol/L 3.5-5.1 [facility] RBC Auto (Bld) [#/Vol]Ordere d By: Rem Unggilles on 2024 RBC (Bld) [#/Vol] 3.96 10*6/uL Low 4.6-6.2 [facility] Serum anion gap measurementO rdered By: Rem Unggilles on 2024 Anion gap [Moles/Vol] 4 mmol/L Low 5-15 [facility] Serum or plasma calcium jacinta urement (mass/volume)Ordered By: Racquel Moss on 2024 Calcium [Mass/Vol] 8.9 mg/dL 8.5-10.1 [facility] Serum or plasma creatinine m easurement (mass/volume)Ordered By: Remus Moss on 2024 Creatinine [Mass/Vol] 0.33 mg/dL Low 0.70-1.30 [facility] Comment on above: The validity of the calculated GFR & GFRAA in patients over 70 years has not been determined. Clinical correlation is essential. Serum or plasma urea nitroge n measurement (mass/volume)Ordered By: Racquel Moss on 2024 Urea nitrogen [Mass/Vol] 8 mg/dL 7-18 [facility] Sodium levelOrdered By: Vinny Moss on 2024 Sodium [Moles/Vol] 135 mmol/L Low 136-145 [facility] White blood cell (WBC) count Ordered By: Racquel Moss on 2024 WBC (Bld) [#/Vol] 6.6 10*3/uL 4.4-11.0 [facility] Absolute neutrophil countOrd ered By: Chente Conn on 01-27-2024 Neutrophils (Bld) [#/Vol] 2.2 10*3/uL 2.0-7.7 [facility] Basophil percentageOrdered B y: Chente Conn on 01-27-2024 Basophils/100 WBC (Bld) 0.5 % 0-[address] [facility] Blood urea nitrogen (BUN)/cr eatinine ratioOrdered By: Chente Conn on 01-27-2024 Urea nitrogen/Creatinine [Mass ratio] 43.3 mg/mg High 10-20 [facility] Carbon dioxide measurementOr dered By: Chente Conn on 01-27-2024 CO2 [Moles/Vol] 30.0 mmol/L 21.0-32.0 [facility] Chloride measurementOrdered By: Chente Conn on 01-27-2024 Chloride [Moles/Vol] 103 mmol/L 98-107 [facility] Eosinophil percentageOrdered By: Chente Conn on 01-27-2024 Eosinophils/100 WBC (Bld) 4.7 % 0-5 [facility] Erythrocyte distribution wid th ratioOrdered By: Chente Conn on 01-27-2024 Erythrocyte distribution width (RBC) [Ratio] 14.2 % 11.6-14.6 [facility] Erythrocyte distribution wid th standard deviationOrdered By: Chente Conn on 01-27-2024 Erythrocyte distribution width (RBC) [Entitic vol] 44.8 fL High 35.1-43.9 [facility] Estimated glomerular filtrat ion rate (GFR) AmericanOrdered By: Chente Conn on 01-27-2024 Estimated GFR (MDRD) Amer 388 mL/min >60 [facility] Comment on above: GFR Calc Glomerular filtration rate ( GFR) estimationOrdered By: Chente Conn on 01-27-2024 Estimated GFR (MDRD) Non-Af Amer 321 mL/min >60 [facility] Comment on above: Non- GFR Calc Glucose measurementOrdered B y: Chente Conn on 01-27-2024 Glucose [Mass/Vol] 99 mg/dL 74-106 [facility] Hematocrit Auto (Bld) [Volum e fraction]Ordered By: Chente Conn on 01-27-2024 Hematocrit (Bld) [Volume fraction] 33.6 % Low 40-54 [facility] Hemoglobin measurementOrdere d By: Chente Conn on 01-27-2024 Hemoglobin (Bld) [Mass/Vol] 10.5 g/dL Low 13.0-16.5 [facility] Immature granulocytes/100 WB C Auto (Bld)Ordered By: Chente Conn on 01-27-2024 Immature granulocytes/100 WBC (Bld) 0.000 % 0.0-0.9 [facility] Comment on above: IG% - Immature Granu locytes (promyelocytes, myelocytes and metamyelocytes) > 1% indicates that a LEFT SHIFT is Present. Lymphocytes Auto (Unsp spec) [#/Vol]Ordered By: Chente Conn on 01-27-2024 Lymphocytes (Bld) [#/Vol] 1.16 10*3/uL 0.83-4.5 1 [facility] Lymphocytes/100 WBC Auto (Un sp spec)Ordered By: Chente Conn on 01-27-2024 Lymphocytes/100 WBC (Bld) 28.9 % 19-41 [facility] MCV (mean corpuscular volume ) determinationOrdered By: Chente Conn on 01-27-2024 MCV (RBC) [Entitic vol] 85.9 fL 80-[address] [facility] Mean corpuscular hemoglobin (MCH) determinationOrdered By: Chente Conn on 01-27-2024 MCH (RBC) [Entitic mass] 26.9 pg Low 27.0-32.0 [facility] Mean corpuscular hemoglobin concentration (MCHC) determinationOrdered By: Chente Conn on 01-27-2024 MCHC (RBC) [Mass/Vol] 31.3 g/dL Low 32-36 [facility] Mean platelet volume determi nationOrdered By: Chente Conn on 01-27-2024 Platelet mean volume (Bld) [Entitic vol] 10.3 fL 6.2-12.0 [facility] Monocyte percentageOrdered B y: Chente Conn on 01-27-2024 Monocytes/100 WBC (Bld) 10.2 % High 0-[address] [facility] Neutrophil percentageOrdered By: Chente Conn on 01-27-2024 Neutrophils/100 WBC (Bld) 55.7 % 47-70 [facility] Nucleated red blood cell per centageOrdered By: Chente Conn on 01-27-2024 Nucleated RBC/100 WBC (Bld) [Ratio] 0 % 0-5 [facility] Platelet countOrdered By: Areli Conn on 01-27-2024 Platelets (Bld) [#/Vol] 161 10*3/uL 150-450 [facility] Potassium measurementOrdered By: Chente Conn on 01-27-2024 Potassium [Moles/Vol] 4.0 mmol/L 3.5-5.1 [facility] RBC Auto (Bld) [#/Vol]Ordere d By: Chente Conn on 01-27-2024 RBC (Bld) [#/Vol] 3.91 10*6/uL Low 4.6-6.2 [facility] Serum anion gap measurementO rdered By: Chente Conn on 01-27-2024 Anion gap [Moles/Vol] 7 mmol/L 5-15 [facility] Serum or plasma calcium jacinta urement (mass/volume)Ordered By: Chente Conn on 01-27-2024 Calcium [Mass/Vol] 9.0 mg/dL 8.5-10.1 [facility] Serum or plasma creatinine m easurement (mass/volume)Ordered By: Chente Conn on 01-27-2024 Creatinine [Mass/Vol] 0.32 mg/dL Low 0.70-1.30 [facility] Comment on above: The validity of the calculated GFR & GFRAA in patients over 70 years has not been determined. Clinical correlation is essential. Serum or plasma urea nitroge n measurement (mass/volume)Ordered By: Chente Conn on 01-27-2024 Urea nitrogen [Mass/Vol] 14 mg/dL 7-18 [facility] Sodium levelOrdered By: Chente Conn on 01-27-2024 Sodium [Moles/Vol] 140 mmol/L 136-145 [facility] White blood cell (WBC) count Ordered By: Chente Conn on 01-27-2024 WBC (Bld) [#/Vol] 4.0 10*3/uL Low 4.4-11.0 [facility] Absolute lymphocyte countOrd ered By: Torey Huffman on 06-14-2023 Lymphocytes Auto (Unsp spec) [#/Vol] 2.38 10*3/uL 0.83-4.51 [facility] Automated lymphocyte count a s percentage of total leukocytesOrdered By: Torey Huffman on 06-14-2023 Lymphocytes/100 WBC Auto (Unsp spec) 35.4 % 19-41 [facility] Basophil percentageOrdered B y: Torey Huffman on 06-14-2023 Basophils/100 WBC (Bld) 0.3 % 0-[address] [facility] Chloride [Moles/Vol] 104 mmol/L 98-107 [facility] Eosinophils/100 WBC (Bld) 4.3 % 0-5 [facility] Glucose [Mass/Vol] 101 mg/dL 74-106 [facility] Comment on above: Fasting Glucose resu lt from 100 to 125 mg/dL suggests IMPAIRED HOMEOSTASIS per A.D.A. criteria. Hemoglobin (Bld) [Mass/Vol] 11.2 g/dL 13.0-16.5 [facility] Monocytes/100 WBC (Bld) 9.4 % 0-[address] [facility] Neutrophils (Bld) [#/Vol] 3.4 10*3/uL 2.0-7.7 [facility] Neutrophils/100 WBC (Bld) 50.5 % 47-70 [facility] Potassium [Moles/Vol] 3.7 mmol/L 3.5-5.1 [facility] Sodium [Moles/Vol] 139 mmol/L 136-145 [facility] WBC (Bld) [#/Vol] 6.7 10*3/uL 4.4-11.0 [facility] Determination of erythrocyte mean corpuscular volume (MCV)Ordered By: Torey Huffman on 06-14-2023 MCV (RBC) [Entitic vol] 83.3 fL 80-[address] [facility] Erythrocyte distribution wid th ratioOrdered By: Torey Huffman on 06-14-2023 Erythrocyte distribution width (RBC) [Ratio] 14.7 % 11.6-14.6 [facility] Erythrocyte distribution wid th standard deviationOrdered By: Torey Huffman on 06-14-2023 Erythrocyte distribution width (RBC) [Entitic vol] 44.5 fL 35.1-43.9 [facility] Hematocrit Auto (Bld) [Volum e fraction]Ordered By: Torey Huffman on 06-14-2023 Hematocrit (Bld) [Volume fraction] 34.4 % 40-54 [facility] Immature granulocytes/100 WB C Auto (Bld)Ordered By: Torey Huffman on 06-14-2023 Immature granulocytes/100 WBC (Bld) 0.100 % 0.0-0.9 [facility] Comment on above: IG% - Immature Granu locytes (promyelocytes, myelocytes and metamyelocytes) > 1% indicates that a LEFT SHIFT is Present. Laboratory - Chemistry and C hemistry - challengeOrdered By: Torey Huffman on 06-14-2023 CO2 [Moles/Vol] 31.0 mmol/L 21.0-32.0 [facility] Urea nitrogen/Creatinine [Mass ratio] 43.2 mg/mg 10-20 [facility] Laboratory - Hematology and Cell countsOrdered By: Torey Huffman on 06-14-2023 MCH (RBC) [Entitic mass] 27.1 pg 27.0-32.0 [facility] MCHC (RBC) [Mass/Vol] 32.6 g/dL 32-36 [facility] Nucleated RBC/100 WBC (Bld) [Ratio] 0 % 0-5 [facility] Platelet mean volume (Bld) [Entitic vol] 10.4 fL 6.2-12.0 [facility] Platelets (Bld) [#/Vol] 178 10*3/uL 150-450 [facility] No Panel InformationOrdered By: Torey Huffman on 06-14-2023 Estimated GFR (MDRD) Amer 423 mL/min >60 [facility] Comment on above: GFR Calc Estimated GFR (MDRD) Non-Af Amer 349 mL/min >60 [facility] Comment on above: Non- GFR Calc RBC Auto (Bld) [#/Vol]Ordere d By: Torey Huffman on 06-14-2023 RBC (Bld) [#/Vol] 4.13 10*6/uL 4.6-6.2 [facility] Serum or plasma calcium jacinta urement (mass/volume)Ordered By: Torey Huffman on 06-14-2023 Calcium [Mass/Vol] 8.3 mg/dL 8.5-10.1 [facility] Serum or plasma creatinine m easurement (mass/volume)Ordered By: Torey Huffman on 06-14-2023 Creatinine [Mass/Vol] 0.30 mg/dL 0.70-1.30 [facility] Comment on above: The validity of the calculated GFR & GFRAA in patients over 70 years has not been determined. Clinical correlation is essential. Serum or plasma urea nitroge n measurement (mass/volume)Ordered By: Torey Huffman on 06-14-2023 Urea nitrogen [Mass/Vol] 13 mg/dL 7-18 [facility] Thin prep Papanicolaou smear with manual screeningOrdered By: Torey Huffman on 06-14-2023 Thin prep Papanicolaou smear with manual screening 4 5-15 [facility] Absolute lymphocyte countOrd ered By: Torey Huffman on 05-17-2023 Lymphocytes Auto (Unsp spec) [#/Vol] 2.30 10*3/uL 0.83-4.51 [facility] Automated lymphocyte count a s percentage of total leukocytesOrdered By: Torey Huffman on 05-17-2023 Lymphocytes/100 WBC Auto (Unsp spec) 36.7 % 19-41 [facility] Basophil percentageOrdered B y: Torey Huffman on 05-17-2023 Basophils/100 WBC (Bld) 0.3 % 0-[address] [facility] Chloride [Moles/Vol] 104 mmol/L 98-107 [facility] Eosinophils/100 WBC (Bld) 4.5 % 0-5 [facility] Glucose [Mass/Vol] 88 mg/dL 74-106 [facility] Hemoglobin (Bld) [Mass/Vol] 11.2 g/dL 13.0-16.5 [facility] Monocytes/100 WBC (Bld) 8.1 % 0-[address] [facility] Neutrophils (Bld) [#/Vol] 3.1 10*3/uL 2.0-7.7 [facility] Neutrophils/100 WBC (Bld) 50.1 % 47-70 [facility] Potassium [Moles/Vol] 4.0 mmol/L 3.5-5.1 [facility] Sodium [Moles/Vol] 139 mmol/L 136-145 [facility] WBC (Bld) [#/Vol] 6.3 10*3/uL 4.4-11.0 [facility] Determination of erythrocyte mean corpuscular volume (MCV)Ordered By: Torey Huffman on 05-17-2023 MCV (RBC) [Entitic vol] 84.5 fL 80-[address] [facility] Erythrocyte distribution wid th ratioOrdered By: Torey Huffman on 05-17-2023 Erythrocyte distribution width (RBC) [Ratio] 14.6 % 11.6-14.6 [facility] Erythrocyte distribution wid th standard deviationOrdered By: Torey Huffman on 05-17-2023 Erythrocyte distribution width (RBC) [Entitic vol] 45.0 fL 35.1-43.9 [facility] Hematocrit Auto (Bld) [Volum e fraction]Ordered By: Torey Huffman on 05-17-2023 Hematocrit (Bld) [Volume fraction] 36.6 % 40-54 [facility] Immature granulocytes/100 WB C Auto (Bld)Ordered By: Torey Huffman on 05-17-2023 Immature granulocytes/100 WBC (Bld) 0.300 % 0.0-0.9 [facility] Comment on above: IG% - Immature Granu locytes (promyelocytes, myelocytes and metamyelocytes) > 1% indicates that a LEFT SHIFT is Present. Laboratory - Chemistry and C hemistry - challengeOrdered By: Torey Huffman on 05-17-2023 CO2 [Moles/Vol] 31.0 mmol/L 21.0-32.0 [facility] Urea nitrogen/Creatinine [Mass ratio] 45.9 mg/mg 10-20 [facility] Laboratory - Hematology and Cell countsOrdered By: Torey Huffman on 05-17-2023 MCH (RBC) [Entitic mass] 25.9 pg 27.0-32.0 [facility] MCHC (RBC) [Mass/Vol] 30.6 g/dL 32-36 [facility] Nucleated RBC/100 WBC (Bld) [Ratio] 0 % 0-5 [facility] Platelet mean volume (Bld) [Entitic vol] 10.8 fL 6.2-12.0 [facility] Platelets (Bld) [#/Vol] 206 10*3/uL 150-450 [facility] No Panel InformationOrdered By: Torey Huffman on 05-17-2023 Estimated GFR (MDRD) Amer 416 mL/min >60 [facility] Comment on above: GFR Calc Estimated GFR (MDRD) Non-Af Amer 344 mL/min >60 [facility] Comment on above: Non- GFR Calc RBC Auto (Bld) [#/Vol]Ordere d By: Torey Huffman on 05-17-2023 RBC (Bld) [#/Vol] 4.33 10*6/uL 4.6-6.2 [facility] Serum or plasma calcium jacinta urement (mass/volume)Ordered By: Torey Huffman on 05-17-2023 Calcium [Mass/Vol] 8.6 mg/dL 8.5-10.1 [facility] Serum or plasma creatinine m easurement (mass/volume)Ordered By: Torey Huffman on 05-17-2023 Creatinine [Mass/Vol] 0.30 mg/dL 0.70-1.30 [facility] Comment on above: The validity of the calculated GFR & GFRAA in patients over 70 years has not been determined. Clinical correlation is essential. Serum or plasma urea nitroge n measurement (mass/volume)Ordered By: Torey Huffman on 05-17-2023 Urea nitrogen [Mass/Vol] 14 mg/dL 7-18 [facility] Thin prep Papanicolaou smear with manual screeningOrdered By: Torey Huffman on 05-17-2023 Thin prep Papanicolaou smear with manual screening 4 5-15 [facility] Absolute lymphocyte countOrd ered By: Torey Huffman on 04-19-2023 Lymphocytes Auto (Unsp spec) [#/Vol] 2.37 10*3/uL 0.83-4.51 [facility] Automated lymphocyte count a s percentage of total leukocytesOrdered By: Torey Huffman on 04-19-2023 Lymphocytes/100 WBC Auto (Unsp spec) 31.8 % 19-41 [facility] Basophil percentageOrdered B y: Torey Huffman on 04-19-2023 Basophils/100 WBC (Bld) 0.4 % 0-[address] [facility] Chloride [Moles/Vol] 105 mmol/L 98-107 [facility] Eosinophils/100 WBC (Bld) 5.0 % 0-5 [facility] Glucose [Mass/Vol] 102 mg/dL 74-106 [facility] Comment on above: Fasting Glucose resu lt from 100 to 125 mg/dL suggests IMPAIRED HOMEOSTASIS per A.D.A. criteria. Hemoglobin (Bld) [Mass/Vol] 11.4 g/dL 13.0-16.5 [facility] Monocytes/100 WBC (Bld) 9.4 % 0-[address] [facility] Neutrophils (Bld) [#/Vol] 4.0 10*3/uL 2.0-7.7 [facility] Neutrophils/100 WBC (Bld) 53.0 % 47-70 [facility] Potassium [Moles/Vol] 4.1 mmol/L 3.5-5.1 [facility] Sodium [Moles/Vol] 138 mmol/L 136-145 [facility] WBC (Bld) [#/Vol] 7.5 10*3/uL 4.4-11.0 [facility] Determination of erythrocyte mean corpuscular volume (MCV)Ordered By: Torey Huffman on 04-19-2023 MCV (RBC) [Entitic vol] 84.7 fL 80-[address] [facility] Erythrocyte distribution wid th ratioOrdered By: Torey Huffman on 04-19-2023 Erythrocyte distribution width (RBC) [Ratio] 14.8 % 11.6-14.6 [facility] Erythrocyte distribution wid th standard deviationOrdered By: Torey Huffman on 04-19-2023 Erythrocyte distribution width (RBC) [Entitic vol] 45.9 fL 35.1-43.9 [facility] Hematocrit Auto (Bld) [Volum e fraction]Ordered By: Torey Huffman on 04-19-2023 Hematocrit (Bld) [Volume fraction] 37.2 % 40-54 [facility] Immature granulocytes/100 WB C Auto (Bld)Ordered By: Torey Huffamn on 04-19-2023 Immature granulocytes/100 WBC (Bld) 0.400 % 0.0-0.9 [facility] Comment on above: IG% - Immature Granu locytes (promyelocytes, myelocytes and metamyelocytes) > 1% indicates that a LEFT SHIFT is Present. Laboratory - Chemistry and C hemistry - challengeOrdered By: Torey Huffman on 04-19-2023 CO2 [Moles/Vol] 28.0 mmol/L 21.0-32.0 [facility] Urea nitrogen/Creatinine [Mass ratio] 58.3 mg/mg 10-20 [facility] Laboratory - Hematology and Cell countsOrdered By: Torey Huffman on 04-19-2023 MCH (RBC) [Entitic mass] 26.0 pg 27.0-32.0 [facility] MCHC (RBC) [Mass/Vol] 30.6 g/dL 32-36 [facility] Nucleated RBC/100 WBC (Bld) [Ratio] 0 % 0-5 [facility] Platelet mean volume (Bld) [Entitic vol] 10.4 fL 6.2-12.0 [facility] Platelets (Bld) [#/Vol] 198 10*3/uL 150-450 [facility] No Panel InformationOrdered By: Torey Huffman on 04-19-2023 Estimated GFR (MDRD) Amer 410 mL/min >60 [facility] Comment on above: GFR Calc Estimated GFR (MDRD) Non-Af Amer 339 mL/min >60 [facility] Comment on above: Non- GFR Calc RBC Auto (Bld) [#/Vol]Ordere d By: Torey Huffman on 04-19-2023 RBC (Bld) [#/Vol] 4.39 10*6/uL 4.6-6.2 [facility] Serum or plasma calcium jacinta urement (mass/volume)Ordered By: Torey Huffman on 04-19-2023 Calcium [Mass/Vol] 8.8 mg/dL 8.5-10.1 [facility] Serum or plasma creatinine m easurement (mass/volume)Ordered By: Torey Huffman on 04-19-2023 Creatinine [Mass/Vol] 0.31 mg/dL 0.70-1.30 [facility] Comment on above: The validity of the calculated GFR & GFRAA in patients over 70 years has not been determined. Clinical correlation is essential. Serum or plasma urea nitroge n measurement (mass/volume)Ordered By: Torey Huffman on 04-19-2023 Urea nitrogen [Mass/Vol] 18 mg/dL 7-18 [facility] Thin prep Papanicolaou smear with manual screeningOrdered By: Torey Huffman on 04-19-2023 Thin prep Papanicolaou smear with manual screening 5 5-15 [facility] Absolute lymphocyte countOrd ered By: Anthony Russell on 04-13-2023 Lymphocytes Auto (Unsp spec) [#/Vol] 3.45 10*3/uL 0.83-4.51 [facility] Activated partial thrombopla stin time (aPTT) in platelet poor plasma by coagulation aOrdered By: Anthony Russell on 04-13-2023 aPTT Coag (PPP) [Time] 25.7 s 24.1-36.2 [facility] Automated lymphocyte count a s percentage of total leukocytesOrdered By: Anthony Russell on 04-13-2023 Lymphocytes/100 WBC Auto (Unsp spec) 43.5 % 19-41 [facility] Basophil percentageOrdered B y: Anthony Russell on 04-13-2023 Basophils/100 WBC (Bld) 0.5 % 0-1 [facility] Chloride [Moles/Vol] 103 mmol/L 98-107 [facility] Eosinophils/100 WBC (Bld) 3.7 % 0-5 [facility] Glucose [Mass/Vol] 116 mg/dL 74-106 [facility] Comment on above: Fasting Glucose resu lt from 100 to 125 mg/dL suggests IMPAIRED HOMEOSTASIS per A.D.A. criteria. Hemoglobin (Bld) [Mass/Vol] 12.4 g/dL 13.0-16.5 [facility] Monocytes/100 WBC (Bld) 7.8 % 0-[address] [facility] Neutrophils (Bld) [#/Vol] 3.5 10*3/uL 2.0-7.7 [facility] Neutrophils/100 WBC (Bld) 44.2 % 47-70 [facility] Potassium [Moles/Vol] 4.0 mmol/L 3.5-5.1 [facility] Sodium [Moles/Vol] 137 mmol/L 136-145 [facility] WBC (Bld) [#/Vol] 7.9 10*3/uL 4.4-11.0 [facility] Determination of erythrocyte mean corpuscular volume (MCV)Ordered By: Anthony Russell on 04-13-2023 MCV (RBC) [Entitic vol] 82.9 fL 80-[address] [facility] Erythrocyte distribution wid th ratioOrdered By: Anthony Russell on 04-13-2023 Erythrocyte distribution width (RBC) [Ratio] 14.9 % 11.6-14.6 [facility] Erythrocyte distribution wid th standard deviationOrdered By: Anthony Russell on 04-13-2023 Erythrocyte distribution width (RBC) [Entitic vol] 44.8 fL 35.1-43.9 [facility] Hematocrit Auto (Bld) [Volum e fraction]Ordered By: Anthony Russell on 04-13-2023 Hematocrit (Bld) [Volume fraction] 40.2 % 40-54 [facility] Immature granulocytes/100 WB C Auto (Bld)Ordered By: Anthony Russell on 04-13-2023 Immature granulocytes/100 WBC (Bld) 0.300 % 0.0-0.9 [facility] Comment on above: IG% - Immature Granu locytes (promyelocytes, myelocytes and metamyelocytes) > 1% indicates that a LEFT SHIFT is Present. Laboratory - Chemistry and C hemistry - challengeOrdered By: Anthony Russell on 04-13-2023 CO2 [Moles/Vol] 24.0 mmol/L 21.0-32.0 [facility] Urea nitrogen/Creatinine [Mass ratio] 39.7 mg/mg 10 [facility] Laboratory - CoagulationOrde red By: Anthony Russell on 04-13-2023 INR Coag (Bld) [Relative time] 1.0 {INR} [facility] PT Coag (PPP) [Time] 13.3 s 11.7-14.9 [facility] Laboratory - Hematology and Cell countsOrdered By: Anthony Russell on 04-13-2023 MCH (RBC) [Entitic mass] 25.6 pg 27.0-32.0 [facility] MCHC (RBC) [Mass/Vol] 30.8 g/dL 32-36 [facility] Nucleated RBC/100 WBC (Bld) [Ratio] 0 % 0-5 [facility] Platelet mean volume (Bld) [Entitic vol] 10.2 fL 6.2-12.0 [facility] Platelets (Bld) [#/Vol] 216 10*3/uL 150-450 [facility] No Panel InformationOrdered By: Anthony Russell on 04-13-2023 D-Dimer Quantitative (PE/DVT) < 0.27 FEU/ug/m 0.27-0.49 [facility] Comment on above: NORMAL D-Dimer level (<0.50) indicates no DVT or PE. Estimated Creatinine Clearance Calc 176.92 ml/min [facility] Estimated GFR (MDRD) Amer 248 mL/min >60 [facility] Comment on above: GFR Calc Estimated GFR (MDRD) Non-Af Amer 205 mL/min >60 [facility] Comment on above: Non- GFR Calc Troponin I High Sensitivity < 3 pg/mL 3.0-78.0 [facility] Comment on above: Please Note: New Suha t Units and Gender Specific Reference Ranges. For more information see Policy Stat Procedure [place] High Sensitivity Troponin (TNIH) and attachments. RBC Auto (Bld) [#/Vol]Ordere d By: Anthony Russell on 04-13-2023 RBC (Bld) [#/Vol] 4.85 10*6/uL 4.6-6.2 [facility] Serum or plasma calcium jacinta urement (mass/volume)Ordered By: Anthony Russell on 04-13-2023 Calcium [Mass/Vol] 9.2 mg/dL 8.5-10.1 [facility] Serum or plasma creatinine m easurement (mass/volume)Ordered By: Anthony Russell on 04-13-2023 Creatinine [Mass/Vol] 0.48 mg/dL 0.70-1.30 [facility] Comment on above: The validity of the calculated GFR & GFRAA in patients over 70 years has not been determined. Clinical correlation is essential. Serum or plasma urea nitroge n measurement (mass/volume)Ordered By: Anthony Russell on 04-13-2023 Urea nitrogen [Mass/Vol] 19 mg/dL 7-18 [facility] Thin prep Papanicolaou smear with manual screeningOrdered By: Anthony Russell on 04-13-2023 Thin prep Papanicolaou smear with manual screening 10 5-15 [facility] Absolute lymphocyte countOrd ered By: Lucia Dillard on 03-24-2023 Lymphocytes Auto (Unsp spec) [#/Vol] 1.76 10*3/uL 0.83-4.51 [facility] Automated lymphocyte count a s percentage of total leukocytesOrdered By: Lucia Dillard on 03-24-2023 Lymphocytes/100 WBC Auto (Unsp spec) 25.6 % 19-41 [facility] Basophil percentageOrdered B y: Lucia Dillard on 03-24-2023 Basophil percentage 10.8 g/dL 13.0-16.5 [facility] Basophil percentage 91 mg/dL 74-106 [facility] Basophil percentage 7.5 g/dL 6.4-8.2 [facility] Basophil percentage 0.30 mg/dL 0.20-1.00 [facility] Basophil percentage 137 mmol/L 136-145 [facility] Basophil percentage 3.6 mmol/L 3.5-5.1 [facility] Basophil percentage 106 mmol/L 98-107 [facility] Basophils (Bld) [#/Vol] 6.9 10*3/uL 4.4-11.0 [facility] Basophils (Bld) [#/Vol] 4.3 10*3/uL 2.0-7.7 [facility] Basophils/100 WBC (Bld) 62.2 % 47-[address] [facility] Basophils/100 WBC (Bld) 8.9 % 0-[address] [facility] Basophils/100 WBC (Bld) 2.9 % 0-[address] [facility] Basophils/100 WBC (Bld) 0.3 % 0-[address] [facility] Bilirubin [Mass/Vol] 0.30 mg/dL 0.20-1.00 [facility] Comment on above: For patients on eltr ombopag therapy, use of Dimension [place] TBIL is not recommended. Chloride [Moles/Vol] 106 mmol/L 98-107 [facility] Eosinophils/100 WBC (Bld) 2.9 % 0-5 [facility] Glucose [Mass/Vol] 91 mg/dL 74-106 [facility] Hemoglobin (Bld) [Mass/Vol] 10.8 g/dL 13.0-16.5 [facility] Monocytes/100 WBC (Bld) 8.9 % 0-[address] [facility] Neutrophils (Bld) [#/Vol] 4.3 10*3/uL 2.0-7.7 [facility] Neutrophils/100 WBC (Bld) 62.2 % 47-70 [facility] Potassium [Moles/Vol] 3.6 mmol/L 3.5-5.1 [facility] Protein [Mass/Vol] 7.5 g/dL 6.4-8.2 [facility] Sodium [Moles/Vol] 137 mmol/L 136-145 [facility] WBC (Bld) [#/Vol] 6.9 10*3/uL 4.4-11.0 [facility] Basophil percentageOrdered B y: Dominic Méndez on 03-24-2023 Basophil percentage 0.5 mmol/L 0.4-2.0 [facility] Lactate [Moles/Vol] 0.5 mmol/L 0.4-2.0 [facility] Determination of erythrocyte mean corpuscular volume (MCV)Ordered By: Lucia Dillard on 03-24-2023 MCV (RBC) [Entitic vol] 84.4 fL 80-94 [facility] Erythrocyte distribution wid th ratioOrdered By: Lucia Dillard on 03-24-2023 Erythrocyte distribution width (RBC) [Ratio] 14.9 % 11.6-14.6 [facility] Erythrocyte distribution wid th standard deviationOrdered By: Lucia Dillard on 03-24-2023 Erythrocyte distribution width (RBC) [Entitic vol] 46.0 fL 35.1-43.9 [facility] Hematocrit Auto (Bld) [Volum e fraction]Ordered By: Lucia Dillard on 03-24-2023 Hematocrit (Bld) [Volume fraction] 35.2 % 40-54 [facility] Immature granulocytes/100 WB C Auto (Bld)Ordered By: Lucia Dillard on 03-24-2023 Immature granulocytes/100 WBC (Bld) 0.100 % 0.0-0.9 [facility] Comment on above: IG% - Immature Granu locytes (promyelocytes, myelocytes and metamyelocytes) > 1% indicates that a LEFT SHIFT is Present. Laboratory - Chemistry and C hemistry - challengeOrdered By: Lucia Dillard on 03-24-2023 Albumin/Globulin [Mass ratio] 0.7 {ratio} 0.9-2.4 [facility] ALP [Catalytic activity/Vol] 153 U/L 45-117 [facility] ALT [Catalytic activity/Vol] 25 U/L 16-61 [facility] CO2 [Moles/Vol] 29.0 mmol/L 21.0-32.0 [facility] Globulin (S) [Mass/Vol] 4.4 g/dL 2.2-4.[address] [facility] Urea nitrogen/Creatinine [Mass ratio] 74.7 mg/mg 10-20 [facility] Laboratory - Hematology and Cell countsOrdered By: Lucia Dillard on 03-24-2023 MCH (RBC) [Entitic mass] 25.9 pg 27.0-32.0 [facility] MCHC (RBC) [Mass/Vol] 30.7 g/dL 32-36 [facility] Nucleated RBC/100 WBC (Bld) [Ratio] 0 % 0-5 [facility] Platelets (Bld) [#/Vol] 181 10*3/uL 150-450 [facility] No Panel InformationOrdered By: Lucia Dillard on 03-24-2023 Estimated Creatinine Clearance Calc 351.31 ml/min [facility] Estimated GFR (MDRD) Amer 547 mL/min >60 [facility] Comment on above: GFR Calc Estimated GFR (MDRD) Non-Af Amer 452 mL/min >60 [facility] Comment on above: Non- GFR Calc 25.9 pg 27.0-32.0 [facility] 30.7 g/dL 32-36 [facility] 181 K/mm3 150-450 [facility] 0 % 0-5 [facility] 452 mL/min >60 [facility] 547 mL/min >60 [facility] 351.31 ml/min [facility] 74.7 RATIO 10-20 [facility] 4.4 g/dL 2.2-4.2 [facility] 0.7 RATIO 0.9-2.4 [facility] 153 U/L 45-117 [facility] 25 U/L 16-61 [facility] 29.0 mmol/L 21.0-32.0 [facility] Platelet mean volume Jm-Ec ker (Bld) [Entitic vol]Ordered By: Lucia Dillard on 03-24-2023 Platelet mean volume (Bld) [Entitic vol] 10.4 fL 6.2-12.0 [facility] RBC Auto (Bld) [#/Vol]Ordere d By: Lucia Dillard on 03-24-2023 RBC (Bld) [#/Vol] 4.17 10*6/uL 4.6-6.2 [facility] Serum or plasma calcium jacinta urement (mass/volume)Ordered By: Lucia Dillard on 03-24-2023 Calcium [Mass/Vol] 8.2 mg/dL 8.5-10.1 [facility] Serum or plasma creatinine m easurement (mass/volume)Ordered By: Lucia Dillard on 03-24-2023 Creatinine [Mass/Vol] 0.24 mg/dL 0.70-1.30 [facility] Comment on above: The validity of the calculated GFR & GFRAA in patients over 70 years has not been determined. Clinical correlation is essential. Serum or plasma urea nitroge n measurement (mass/volume)Ordered By: Lucia Dillard on 03-24-2023 Urea nitrogen [Mass/Vol] 18 mg/dL 7-18 [facility] Thin prep Papanicolaou smear with manual screeningOrdered By: Lucia Dillard on 03-24-2023 Thin prep Papanicolaou smear with manual screening 3.1 g/dL 3.2-5.0 [facility] Thin prep Papanicolaou smear with manual screening 14 U/L 15-37 [facility] Thin prep Papanicolaou smear with manual screening 2 5-15 [facility] Absolute lymphocyte countOrd ered By: Dominic Méndez on 03-23-2023 Lymphocytes Auto (Unsp spec) [#/Vol] 2.81 10*3/uL 0.83-4.51 [facility] Activated partial thrombopla stin time (aPTT) in platelet poor plasma by coagulation aOrdered By: Dominic Kohlisaw on 03-23-2023 aPTT Coag (PPP) [Time] 31.1 s 24.1-36.2 [facility] Automated lymphocyte count a s percentage of total leukocytesOrdered By: Dominic Honey on 03-23-2023 Lymphocytes/100 WBC Auto (Unsp spec) 21.7 % 19-41 [facility] Basophil percentageOrdered B y: Dominic Honey on 03-23-2023 Bilirubin [Mass/Vol] 0.20 mg/dL 0.20-1.00 [facility] Comment on above: For patients on eltr ombopag therapy, use of Dimension [place] TBIL is not recommended. Chloride [Moles/Vol] 104 mmol/L 98-107 [facility] Glucose [Mass/Vol] 123 mg/dL 74-106 [facility] Comment on above: Fasting Glucose resu lt from 100 to 125 mg/dL suggests IMPAIRED HOMEOSTASIS per A.D.A. criteria. Potassium [Moles/Vol] 3.7 mmol/L 3.5-5.1 [facility] Protein [Mass/Vol] 8.8 g/dL 6.4-8.2 [facility] Sodium [Moles/Vol] 135 mmol/L 136-145 [facility] Basophils/100 WBC (Bld) 0.2 % 0-1 [facility] Eosinophils/100 WBC (Bld) 2.0 % 0-5 [facility] Hemoglobin (Bld) [Mass/Vol] 13.1 g/dL 13.0-16.5 [facility] Lactate [Moles/Vol] 5.3 mmol/L 0.4-2.0 [facility] Comment on above: Critical Result(s) C alled at: 13:12:15 03/23/2023 by: Moraima Simmons. Results read back by same. Monocytes/100 WBC (Bld) 5.1 % 0-10 [facility] Neutrophils (Bld) [#/Vol] 9.1 10*3/uL 2.0-7.7 [facility] Neutrophils/100 WBC (Bld) 70.6 % 47-70 [facility] WBC (Bld) [#/Vol] 13.0 10*3/uL 4.4-11.0 [facility] Culture, urineOrdered By: Champ Méndez on 03-23-2023 Bacteria identified Cx Nom (U) Culture exhibits no growth. [facility] Bacteria identified Cx Nom (U) Culture exhibits no growth. [facility] Determination of erythrocyte mean corpuscular volume (MCV)Ordered By: Dominic Méndez on 03-23-2023 MCV (RBC) [Entitic vol] 83.2 fL 80-[address] [facility] Erythrocyte distribution wid th ratioOrdered By: Dominic Méndez on 03-23-2023 Erythrocyte distribution width (RBC) [Ratio] 14.8 % 11.6-14.6 [facility] Erythrocyte distribution wid th standard deviationOrdered By: Dominic Méndez on 03-23-2023 Erythrocyte distribution width (RBC) [Entitic vol] 45.1 fL 35.1-43.9 [facility] Hematocrit Auto (Bld) [Volum e fraction]Ordered By: Dominic Méndez on 03-23-2023 Hematocrit (Bld) [Volume fraction] 42.2 % 40-54 [facility] Immature granulocytes/100 WB C Auto (Bld)Ordered By: Dominic Méndez on 03-23-2023 Immature granulocytes/100 WBC (Bld) 0.400 % 0.0-0.9 [facility] Comment on above: IG% - Immature Granu locytes (promyelocytes, myelocytes and metamyelocytes) > 1% indicates that a LEFT SHIFT is Present. International normalized rat io (INR) calculationOrdered By: Dominic Méndez on 03-23-2023 INR Coag (PPP) [Relative time] 1.0 {INR} [facility] Laboratory - Chemistry and C hemistry - challengeOrdered By: Dominic Méndez on 03-23-2023 Albumin/Globulin [Mass ratio] 0.7 {ratio} 0.9-2.4 [facility] ALP [Catalytic activity/Vol] 169 U/L 45-117 [facility] ALT [Catalytic activity/Vol] 29 U/L 16-61 [facility] CO2 [Moles/Vol] 26.0 mmol/L 21.0-32.0 [facility] Globulin (S) [Mass/Vol] 5.2 g/dL 2.2-4.[address] [facility] Urea nitrogen/Creatinine [Mass ratio] 46.1 mg/mg 10-20 [facility] Laboratory - CoagulationOrde red By: Dominic Méndez on 03-23-2023 PT Coag (PPP) [Time] 12.9 s 11.7-14.9 [facility] - Hematology and Cell countsOrdered By: Dominic Méndez on 03-23-2023 MCH (RBC) [Entitic mass] 25.8 pg 27.0-32.0 [facility] MCHC (RBC) [Mass/Vol] 31.0 g/dL 32-36 [facility] Nucleated RBC/100 WBC (Bld) [Ratio] 0 % 0-5 [facility] Platelets (Bld) [#/Vol] 229 10*3/uL 150-450 [facility] Laboratory - Microbiology an d Antimicrobial susceptibilityOrdered By: Dominic Méndez on 03-23-2023 Bacteria identified Cx Nom (Bld) No growth in 5 days. [facility] Bacteria identified Cx Nom (Bld) No growth in 5 days. [facility] No Panel InformationOrdered By: Dominic Méndez on 03-23-2023 Estimated Creatinine Clearance Calc 186.40 ml/min [facility] Estimated GFR (MDRD) Amer 262 mL/min >60 [facility] Comment on above: GFR Calc Estimated GFR (MDRD) Non-Af Amer 217 mL/min >60 [facility] Comment on above: Non- GFR Calc 12.9 SECONDS 11.7-14.9 [facility] Platelet mean volume Jm-Ec ker (Bld) [Entitic vol]Ordered By: Dominic Méndez on 03-23-2023 Platelet mean volume (Bld) [Entitic vol] 10.1 fL 6.2-12.0 [facility] RBC Auto (Bld) [#/Vol]Ordere d By: Dominic Méndez on 03-23-2023 RBC (Bld) [#/Vol] 5.07 10*6/uL 4.6-6.2 [facility] Respiratory pathogens detect ion panel by molecular detection methodOrdered By: Dominic Méndez on 03-23-2023 Respiratory pathogens DNA and RNA panel YAYO+probe (Resp) [facility] Respiratory pathogens DNA and RNA panel YAYO+probe (Resp) [facility] Serum or plasma calcium jacinta urement (mass/volume)Ordered By: Dominic Méndez on 03-23-2023 Calcium [Mass/Vol] 8.8 mg/dL 8.5-10.1 [facility] Serum or plasma creatinine m easurement (mass/volume)Ordered By: Dominic Méndez on 03-23-2023 Creatinine [Mass/Vol] 0.46 mg/dL 0.70-1.30 [facility] Comment on above: The validity of the calculated GFR & GFRAA in patients over 70 years has not been determined. Clinical correlation is essential. Serum or plasma urea nitroge n measurement (mass/volume)Ordered By: Dominic Méndez on 03-23-2023 Urea nitrogen [Mass/Vol] 21 mg/dL 7-18 [facility] Thin prep Papanicolaou smear with manual screeningOrdered By: Dominic Méndez on 03-23-2023 Thin prep Papanicolaou smear with manual screening 3.6 g/dL 3.2-5.0 [facility] Thin prep Papanicolaou smear with manual screening 16 U/L 15-37 [facility] Thin prep Papanicolaou smear with manual screening 5 5-15 [facility] Absolute lymphocyte countOrd ered By: Torey Huffman on 03-01-2023 Lymphocytes Auto (Unsp spec) [#/Vol] 2.53 10*3/uL 0.83-4.51 [facility] Basophil percentageOrdered B y: Torey Hfufman on 03-01-2023 Basophil percentage 93 mg/dL 74-106 [facility] Basophil percentage 140 mmol/L 136-145 [facility] Basophil percentage 3.8 mmol/L 3.5-5.1 [facility] Basophil percentage 105 mmol/L 98-107 [facility] Basophils (Bld) [#/Vol] 7.0 10*3/uL 4.4-11.0 [facility] Basophils (Bld) [#/Vol] 3.5 10*3/uL 2.0-7.7 [facility] Basophils/100 WBC (Bld) 0.3 % 0-[address] [facility] Basophils/100 WBC (Bld) 49.5 % 47-[address] [facility] Basophils/100 WBC (Bld) 4.9 % 0-5 [facility] [facility] Chloride [Moles/Vol] 105 mmol/L 98-107 [facility] Eosinophils/100 WBC (Bld) 4.9 % 0-5 [facility] Glucose [Mass/Vol] 93 mg/dL 74-106 [facility] Neutrophils (Bld) [#/Vol] 3.5 10*3/uL 2.0-7.7 [facility] Neutrophils/100 WBC (Bld) 49.5 % 47-70 [facility] Potassium [Moles/Vol] 3.8 mmol/L 3.5-5.1 [facility] Sodium [Moles/Vol] 140 mmol/L 136-145 [facility] WBC (Bld) [#/Vol] 7.0 10*3/uL 4.4-11.0 [facility] Blood erythrocytes count (nu mber/volume)Ordered By: Torey Huffman on 03-01-2023 RBC (Bld) [#/Vol] 4.30 10*6/uL 4.6-6.2 [facility] Blood hemoglobin measurement (mass/volume)Ordered By: Torey Huffman on 03-01-2023 Hemoglobin (Bld) [Mass/Vol] 11.1 g/dL 13.0-16.5 [facility] Blood lymphocytes/100 leukoc ytesOrdered By: Torey Huffman on 03-01-2023 Lymphocytes/100 WBC (Bld) 36.3 % 19-41 [facility] Blood monocytes/100 leukocyt esOrdered By: Torey Huffman on 03-01-2023 Monocytes/100 WBC (Bld) 8.9 % 0-10 [facility] Blood platelet mean volumeOr dered By: Torey Huffman on 03-01-2023 Platelet mean volume (Bld) [Entitic vol] 11.0 fL 6.2-12.0 [facility] Determination of erythrocyte mean corpuscular volume (MCV)Ordered By: Torey Huffman on 03-01-2023 MCV (RBC) [Entitic vol] 83.5 fL 80-[address] [facility] Hematocrit Auto (Bld) [Volum e fraction]Ordered By: Torey Huffman on 03-01-2023 Hematocrit (Bld) [Volume fraction] 35.9 % 40-54 [facility] - Chemistry and C hemistry - challengeOrdered By: Torey Huffman on 03-01-2023 CO2 [Moles/Vol] 28.0 mmol/L 21.0-32.0 [facility] Urea nitrogen/Creatinine [Mass ratio] 60.6 mg/mg 10-20 [facility] - Hematology and Cell countsOrdered By: Torey Huffman on 03-01-2023 Erythrocyte distribution width (RBC) [Entitic vol] 44.3 fL 35.1-43.9 [facility] Erythrocyte distribution width (RBC) [Ratio] 14.6 % 11.6-14.6 [facility] Immature granulocytes/100 WBC (Bld) 0.100 % 0.0-0.9 [facility] Comment on above: IG% - Immature Granu locytes (promyelocytes, myelocytes and metamyelocytes) > 1% indicates that a LEFT SHIFT is Present. MCH (RBC) [Entitic mass] 25.8 pg 27.0-32.0 [facility] Nucleated RBC/100 WBC (Bld) [Ratio] 0 % 0-5 [facility] MCHC Auto (RBC) [Mass/Vol]Or dered By: Torey Huffman on 03-01-2023 MCHC (RBC) [Mass/Vol] 30.9 g/dL 32-36 [facility] No Panel InformationOrdered By: Torey Huffman on 03-01-2023 Estimated GFR (MDRD) Amer 308 mL/min >60 [facility] Comment on above: GFR Calc Estimated GFR (MDRD) Non-Af Amer 255 mL/min >60 [facility] Comment on above: Non- GFR Calc 25.8 pg 27.0-32.0 [facility] 14.6 % 11.6-14.6 [facility] 44.3 fl 35.1-43.9 [facility] 0.100 % 0.0-0.9 [facility] 0 % 0-5 [facility] 255 mL/min >60 [facility] 308 mL/min >60 [facility] 60.6 RATIO 10-20 [facility] 28.0 mmol/L 21.0-32.0 [facility] Platelets bldOrdered By: Mellissa Huffman on 03-01-2023 Platelets (Bld) [#/Vol] 202 10*3/uL 150-450 [facility] Serum or plasma calcium jacinta urement (mass/volume)Ordered By: Torey Huffman on 03-01-2023 Calcium [Mass/Vol] 8.7 mg/dL 8.5-10.1 [facility] Serum or plasma creatinine m easurement (mass/volume)Ordered By: Torey Huffman on 03-01-2023 Creatinine [Mass/Vol] 0.40 mg/dL 0.70-1.30 [facility] Comment on above: The validity of the calculated GFR & GFRAA in patients over 70 years has not been determined. Clinical correlation is essential. Serum or plasma urea nitroge n measurement (mass/volume)Ordered By: Torey Huffman on 03-01-2023 Urea nitrogen [Mass/Vol] 24 mg/dL 7-18 [facility] Thin prep Papanicolaou smear with manual screeningOrdered By: Torey Huffman on 03-01-2023 Thin prep Papanicolaou smear with manual screening 7 5-15 [facility] Absolute lymphocyte countOrd ered By: Torey Huffman on 02-03-2023 Lymphocytes Auto (Unsp spec) [#/Vol] 2.02 10*3/uL 0.83-4.51 [facility] Basophil percentageOrdered B y: Torey Huffman on 02-03-2023 Basophil percentage 103 mg/dL 74-106 [facility] Basophil percentage 139 mmol/L 136-145 [facility] Basophil percentage 3.7 mmol/L 3.5-5.1 [facility] Basophil percentage 105 mmol/L 98-107 [facility] Basophils (Bld) [#/Vol] 5.9 10*3/uL 4.4-11.0 [facility] Basophils (Bld) [#/Vol] 3.0 10*3/uL 2.0-7.7 [facility] Basophils/100 WBC (Bld) 0.3 % 0-[address] [facility] Basophils/100 WBC (Bld) 50.5 % 47-[address] [facility] Basophils/100 WBC (Bld) 5.6 % 0-5 [facility] Chloride [Moles/Vol] 105 mmol/L 98-107 [facility] Eosinophils/100 WBC (Bld) 5.6 % 0-5 [facility] Glucose [Mass/Vol] 103 mg/dL 74-106 [facility] Comment on above: Fasting Glucose resu lt from 100 to 125 mg/dL suggests IMPAIRED HOMEOSTASIS per A.D.A. criteria. Neutrophils (Bld) [#/Vol] 3.0 10*3/uL 2.0-7.7 [facility] Neutrophils/100 WBC (Bld) 50.5 % 47-70 [facility] Potassium [Moles/Vol] 3.7 mmol/L 3.5-5.1 [facility] Sodium [Moles/Vol] 139 mmol/L 136-145 [facility] WBC (Bld) [#/Vol] 5.9 10*3/uL 4.4-11.0 [facility] Blood erythrocytes count (nu mber/volume)Ordered By: Torey Huffman on 02-03-2023 RBC (Bld) [#/Vol] 3.99 10*6/uL 4.6-6.2 [facility] Blood hemoglobin measurement (mass/volume)Ordered By: Torey Huffman on 02-03-2023 Hemoglobin (Bld) [Mass/Vol] 10.3 g/dL 13.0-16.5 [facility] Blood lymphocytes/100 leukoc ytesOrdered By: Torey Huffman on 02-03-2023 Lymphocytes/100 WBC (Bld) 34.4 % 19-41 [facility] Blood monocytes/100 leukocyt esOrdered By: Torey Huffman on 02-03-2023 Monocytes/100 WBC (Bld) 9.0 % 0-10 [facility] Blood platelet mean volumeOr dered By: Torey Huffman on 02-03-2023 Platelet mean volume (Bld) [Entitic vol] 11.0 fL 6.2-12.0 [facility] Determination of erythrocyte mean corpuscular volume (MCV)Ordered By: Torey Huffman on 02-03-2023 MCV (RBC) [Entitic vol] 83.0 fL 80-[address] [facility] Hematocrit Auto (Bld) [Volum e fraction]Ordered By: Torey Huffman on 02-03-2023 Hematocrit (Bld) [Volume fraction] 33.1 % 40-54 [facility] - Chemistry and C hemistry - challengeOrdered By: Torey Huffman on 02-03-2023 CO2 [Moles/Vol] 30.0 mmol/L 21.0-32.0 [facility] Urea nitrogen/Creatinine [Mass ratio] 51.6 mg/mg 10-20 [facility] - Hematology and Cell countsOrdered By: Torey Huffman on 02-03-2023 Erythrocyte distribution width (RBC) [Entitic vol] 43.8 fL 35.1-43.9 [facility] Erythrocyte distribution width (RBC) [Ratio] 14.4 % 11.6-14.6 [facility] Immature granulocytes/100 WBC (Bld) 0.200 % 0.0-0.9 [facility] Comment on above: IG% - Immature Granu locytes (promyelocytes, myelocytes and metamyelocytes) > 1% indicates that a LEFT SHIFT is Present. MCH (RBC) [Entitic mass] 25.8 pg 27.0-32.0 [facility] Nucleated RBC/100 WBC (Bld) [Ratio] 0 % 0-5 [facility] MCHC Auto (RBC) [Mass/Vol]Or dered By: Torey Huffman on 02-03-2023 MCHC (RBC) [Mass/Vol] 31.1 g/dL 32-36 [facility] No Panel InformationOrdered By: Torey Huffman on 02-03-2023 Estimated GFR (MDRD) Amer 409 mL/min >60 [facility] Comment on above: GFR Calc Estimated GFR (MDRD) Non-Af Amer 338 mL/min >60 [facility] Comment on above: Non- GFR Calc 25.8 pg 27.0-32.0 [facility] 14.4 % 11.6-14.6 [facility] 43.8 fl 35.1-43.9 [facility] 0.200 % 0.0-0.9 [facility] 0 % 0-5 [facility] 338 mL/min >60 [facility] 409 mL/min >60 [facility] 51.6 RATIO 10-20 [facility] 30.0 mmol/L 21.0-32.0 [facility] Platelets bldOrdered By: Mellissa Huffman on 02-03-2023 Platelets (Bld) [#/Vol] 172 10*3/uL 150-450 [facility] Serum or plasma calcium jacinta urement (mass/volume)Ordered By: Torey Huffman on 02-03-2023 Calcium [Mass/Vol] 8.4 mg/dL 8.5-10.1 [facility] Serum or plasma creatinine m easurement (mass/volume)Ordered By: Torey Huffman on 02-03-2023 Creatinine [Mass/Vol] 0.31 mg/dL 0.70-1.30 [facility] Comment on above: The validity of the calculated GFR & GFRAA in patients over 70 years has not been determined. Clinical correlation is essential. Serum or plasma urea nitroge n measurement (mass/volume)Ordered By: Torey Huffman on 02-03-2023 Urea nitrogen [Mass/Vol] 16 mg/dL 7-18 [facility] Thin prep Papanicolaou smear with manual screeningOrdered By: Torey Huffman on 02-03-2023 Thin prep Papanicolaou smear with manual screening 4 5-15 [facility] Absolute lymphocyte countOrd ered By: Amena Smith on 01-16-2023 Lymphocytes Auto (Unsp spec) [#/Vol] 1.47 10*3/uL 0.83-4.51 [facility] Basophil percentageOrdered B y: Amena Smith on 01-16-2023 Basophil percentage 0-5 SEEN /hpf 0-5 [facility] Basophil percentage 97 mg/dL 74-106 [facility] Basophil percentage 137 mmol/L 136-145 [facility] Basophil percentage 3.7 mmol/L 3.5-5.1 [facility] Basophil percentage 105 mmol/L 98-107 [facility] Basophil percentage 0.9 mmol/L 0.4-2.0 [facility] Basophils (Bld) [#/Vol] 8.7 10*3/uL 4.4-11.0 [facility] Basophils (Bld) [#/Vol] 6.6 10*3/uL 2.0-7.7 [facility] Basophils/100 WBC (Bld) 0.1 % 0-[address] [facility] Basophils/100 WBC (Bld) 75.2 % 47-[address] [facility] Basophils/100 WBC (Bld) 1.1 % 0-[address] [facility] Chloride [Moles/Vol] 105 mmol/L 98-107 [facility] Eosinophils/100 WBC (Bld) 1.1 % 0-5 [facility] Glucose [Mass/Vol] 97 mg/dL 74-106 [facility] Lactate [Moles/Vol] 0.9 mmol/L 0.4-2.0 [facility] Neutrophils (Bld) [#/Vol] 6.6 10*3/uL 2.0-7.7 [facility] Neutrophils/100 WBC (Bld) 75.2 % 47-70 [facility] Potassium [Moles/Vol] 3.7 mmol/L 3.5-5.1 [facility] Sodium [Moles/Vol] 137 mmol/L 136-145 [facility] WBC (Bld) [#/Vol] 8.7 10*3/uL 4.4-11.0 [facility] Bilirubin Test strip Ql (U)O rdered By: Amena Smith on 01-16-2023 Bilirubin Ql (U) Negative Negative [facility] Blood erythrocytes count (nu mber/volume)Ordered By: Amena Smith on 01-16-2023 RBC (Bld) [#/Vol] 4.46 10*6/uL 4.6-6.2 [facility] Blood hemoglobin measurement (mass/volume)Ordered By: Amena Smith on 01-16-2023 Hemoglobin (Bld) [Mass/Vol] 11.6 g/dL 13.0-16.5 [facility] Blood lymphocytes/100 leukoc ytesOrdered By: Amena Smith on 01-16-2023 Lymphocytes/100 WBC (Bld) 16.8 % 19-41 [facility] Blood monocytes/100 leukocyt esOrdered By: Amena Smith on 01-16-2023 Monocytes/100 WBC (Bld) 6.5 % 0-[address] [facility] Blood platelet mean volumeOr dered By: Amena Smith on 01-16-2023 Platelet mean volume (Bld) [Entitic vol] 10.2 fL 6.2-12.0 [facility] Culture, urineOrdered By: Елена Smith on 01-16-2023 Bacteria identified Cx Nom (U) Culture exhibits no growth. [facility] Determination of erythrocyte mean corpuscular volume (MCV)Ordered By: Amena Smith on 01-16-2023 MCV (RBC) [Entitic vol] 84.1 fL 80-[address] [facility] Hematocrit Auto (Bld) [Volum e fraction]Ordered By: Amena Smith on 01-16-2023 Hematocrit (Bld) [Volume fraction] 37.5 % 40-54 [facility] Influenza virus A and B and SARS-CoV-2 (COVID-19) Ag panel - Upper respiratory specimOrdered By: Amena Smith on 01-16-2023 SARS-CoV-2 (COVID-19) RNA YAYO+probe Ql (Resp) [facility] Ketones Test strip Ql (U)Ord ered By: Amena Smith on 01-16-2023 Ketones Ql (U) 5 mg/dl Negative [facility] - Chemistry and C hemistry - challengeOrdered By: Amena Smith on 01-16-2023 CO2 [Moles/Vol] 28.0 mmol/L 21.0-32.0 [facility] Urea nitrogen/Creatinine [Mass ratio] 69.5 mg/mg 10-20 [facility] - Hematology and Cell countsOrdered By: Amena Smith on 01-16-2023 Erythrocyte distribution width (RBC) [Entitic vol] 44.5 fL 35.1-43.9 [facility] Erythrocyte distribution width (RBC) [Ratio] 14.6 % 11.6-14.6 [facility] Immature granulocytes/100 WBC (Bld) 0.300 % 0.0-0.9 [facility] Comment on above: IG% - Immature Granu locytes (promyelocytes, myelocytes and metamyelocytes) > 1% indicates that a LEFT SHIFT is Present. MCH (RBC) [Entitic mass] 26.0 pg 27.0-32.0 [facility] Nucleated RBC/100 WBC (Bld) [Ratio] 0 % 0-5 [facility] - Microbiology an d Antimicrobial susceptibilityOrdered By: Amena Smith on 01-16-2023 Bacteria identified Cx Nom (Bld) No growth in 5 days. [facility] MCHC Auto (RBC) [Mass/Vol]Or dered By: Amena Smith on 01-16-2023 MCHC (RBC) [Mass/Vol] 30.9 g/dL 32-36 [facility] Mucus LM Ql (Urine sed)Order ed By: Amena Smith on 01-16-2023 Mucus Ql (Urine sed) 0 SEEN /hpf [facility] Nitrite Test strip Ql (U)Ord ered By: Amena Smith on 01-16-2023 Nitrite Ql (U) Negative Negative [facility] No Panel InformationOrdered By: Amena Smith on 01-16-2023 No growth in 5 days. [facility] Estimated Creatinine Clearance Calc 231.48 ml/min [facility] Estimated GFR (MDRD) Amer 422 mL/min >60 [facility] Comment on above: GFR Calc Estimated GFR (MDRD) Non-Af Amer 349 mL/min >60 [facility] Comment on above: Non- GFR Calc 26.0 pg 27.0-32.0 [facility] 14.6 % 11.6-14.6 [facility] 44.5 fl 35.1-43.9 [facility] 0.300 % 0.0-0.9 [facility] 0 % 0-5 [facility] 349 mL/min >60 [facility] 422 mL/min >60 [facility] 231.48 ml/min [facility] 69.5 RATIO 10-20 [facility] 28.0 mmol/L 21.0-32.0 [facility] No Panel InformationOrdered By: Dalton Lester on 01-16-2023 Troponin I High Sensitivity 4 pg/mL 3.0-78.0 [facility] Comment on above: Please Note: New Suha t Units and Gender Specific Reference Ranges. For more information see Policy Stat Procedure [place] High Sensitivity Troponin (TNIH) and attachments. 4 pg/mL 3.0-78.0 [facility] Platelets bldOrdered By: Marjorie Smith on 01-16-2023 Platelets (Bld) [#/Vol] 206 10*3/uL 150-450 [facility] Protein Test strip Ql (U)Ord ered By: Amena Smith on 01-16-2023 Protein Ql (U) 30 mg/dl Negative [facility] Serum or plasma calcium jacinta urement (mass/volume)Ordered By: Amena Smith on 01-16-2023 Calcium [Mass/Vol] 8.3 mg/dL 8.5-10.1 [facility] Serum or plasma creatinine m easurement (mass/volume)Ordered By: Amena Smith on 01-16-2023 Creatinine [Mass/Vol] 0.30 mg/dL 0.70-1.30 [facility] Comment on above: The validity of the calculated GFR & GFRAA in patients over 70 years has not been determined. Clinical correlation is essential. Serum or plasma urea nitroge n measurement (mass/volume)Ordered By: Amena Smith on 01-16-2023 Urea nitrogen [Mass/Vol] 21 mg/dL 7-18 [facility] Squamous epithelial cells de tection in urine sediment by light microscopyOrdered By: Amena Smith on 01-16-2023 Epithelial cells.squamous LM Ql (Urine sed) 0 SEEN /hpf 0-5 [facility] Thin prep Papanicolaou smear with manual screeningOrdered By: Amena Smith on 01-16-2023 Thin prep Papanicolaou smear with manual screening 4 5-15 [facility] Upper respiratory specimen i nfluenza A virus, influenza B virus, and severe acute respiratory syndromOrdered By: Amena Smith on 01-16-2023 Upper respiratory specimen influenza A virus, influenza B virus, and severe acute respiratory syndrom [facility] Urine blood detectionOrdered By: Amena Smith on 01-16-2023 RBC Ql (U) 10 /ul Negative [facility] RBC Ql (U) 0 SEEN /hpf 0-5 [facility] Urine clarityOrdered By: Marjorie Smith on 01-16-2023 Clarity (U) Clear Clear [facility] Urine color determinationOrd ered By: Amena Smith on 01-16-2023 Color (U) Yellow Yellow [facility] Urine glucose detectionOrder ed By: Amena Smith on 01-16-2023 Glucose Ql (U) Normal mg/dl Normal [facility] Urine leukocyte esterase det ection by dipstickOrdered By: Amena Smith on 01-16-2023 Leukocyte esterase Test strip Ql (U) 25 /ul Negative [facility] Urine pHOrdered By: Amena simons on 01-16-2023 pH (U) 6.0 [pH] 5.0 - 8.0 [facility] Urine sediment bacteria coun t by microscopy (number/high power field)Ordered By: Amena Smith on 01-16-2023 Bacteria LM.HPF (Urine sed) [#/Area] 0 /[HPF] None Seen [facility] Urine specific gravity measu rementOrdered By: Amena Smith on 01-16-2023 Specific gravity (U) [Rel density] 1.025 1.002-1.030 [facility] Urobilinogen Auto test strip Ql (U)Ordered By: Amena Smith on 01-16-2023 Urobilinogen Ql (U) Normal mg/dl Normal [facility] Absolute lymphocyte countOrd ered By: Torey Huffman on 01-04-2023 Lymphocytes Auto (Unsp spec) [#/Vol] 2.04 10*3/uL 0.83-4.51 [facility] Basophil percentageOrdered B y: Torey Huffman on 01-04-2023 Basophil percentage 91 mg/dL 74-106 [facility] Basophil percentage 141 mmol/L 136-145 [facility] Basophil percentage 3.9 mmol/L 3.5-5.1 [facility] Basophil percentage 105 mmol/L 98-107 [facility] Basophils (Bld) [#/Vol] 6.9 10*3/uL 4.4-11.0 [facility] Basophils (Bld) [#/Vol] 3.9 10*3/uL 2.0-7.7 [facility] Basophils/100 WBC (Bld) 0.3 % 0-[address] [facility] Basophils/100 WBC (Bld) 57.1 % 47-[address] [facility] Basophils/100 WBC (Bld) 4.4 % 0-[address] [facility] Chloride [Moles/Vol] 105 mmol/L 98-107 [facility] Eosinophils/100 WBC (Bld) 4.4 % 0-5 [facility] Glucose [Mass/Vol] 91 mg/dL 74-106 [facility] Neutrophils (Bld) [#/Vol] 3.9 10*3/uL 2.0-7.7 [facility] Neutrophils/100 WBC (Bld) 57.1 % 47-70 [facility] Potassium [Moles/Vol] 3.9 mmol/L 3.5-5.1 [facility] Sodium [Moles/Vol] 141 mmol/L 136-145 [facility] WBC (Bld) [#/Vol] 6.9 10*3/uL 4.4-11.0 [facility] Blood erythrocytes count (nu mber/volume)Ordered By: Torey Huffman on 01-04-2023 RBC (Bld) [#/Vol] 4.11 10*6/uL 4.6-6.2 [facility] Blood hemoglobin measurement (mass/volume)Ordered By: Torey Huffman on 01-04-2023 Hemoglobin (Bld) [Mass/Vol] 10.6 g/dL 13.0-16.5 [facility] Blood lymphocytes/100 leukoc ytesOrdered By: Torey Huffman on 01-04-2023 Lymphocytes/100 WBC (Bld) 29.7 % 19-41 [facility] Blood monocytes/100 leukocyt esOrdered By: Torey Huffman on 01-04-2023 Monocytes/100 WBC (Bld) 8.4 % 0-[address] [facility] Blood platelet mean volumeOr dered By: Torey Huffman on 01-04-2023 Platelet mean volume (Bld) [Entitic vol] 10.3 fL 6.2-12.0 [facility] Determination of erythrocyte mean corpuscular volume (MCV)Ordered By: Torey Huffman on 01-04-2023 MCV (RBC) [Entitic vol] 84.9 fL 80-[address] [facility] Hematocrit Auto (Bld) [Volum e fraction]Ordered By: Torey Huffman on 01-04-2023 Hematocrit (Bld) [Volume fraction] 34.9 % 40-54 [facility] - Chemistry and C hemistry - challengeOrdered By: Torey Huffman on 01-04-2023 CO2 [Moles/Vol] 31.0 mmol/L 21.0-32.0 [facility] Urea nitrogen/Creatinine [Mass ratio] 65.4 mg/mg 10-20 [facility] - Hematology and Cell countsOrdered By: Torey Huffman on 01-04-2023 Erythrocyte distribution width (RBC) [Entitic vol] 45.1 fL 35.1-43.9 [facility] Erythrocyte distribution width (RBC) [Ratio] 14.6 % 11.6-14.6 [facility] Immature granulocytes/100 WBC (Bld) 0.100 % 0.0-0.9 [facility] Comment on above: IG% - Immature Granu locytes (promyelocytes, myelocytes and metamyelocytes) > 1% indicates that a LEFT SHIFT is Present. MCH (RBC) [Entitic mass] 25.8 pg 27.0-32.0 [facility] Nucleated RBC/100 WBC (Bld) [Ratio] 0 % 0-5 [facility] MCHC Auto (RBC) [Mass/Vol]Or dered By: Torey Huffman on 01-04-2023 MCHC (RBC) [Mass/Vol] 30.4 g/dL 32-36 [facility] No Panel InformationOrdered By: Torey Huffman on 01-04-2023 Estimated GFR (MDRD) Amer 501 mL/min >60 [facility] Comment on above: GFR Calc Estimated GFR (MDRD) Non-Af Amer 414 mL/min >60 [facility] Comment on above: Non- GFR Calc 25.8 pg 27.0-32.0 [facility] 14.6 % 11.6-14.6 [facility] 45.1 fl 35.1-43.9 [facility] 0.100 % 0.0-0.9 [facility] 0 % 0-5 [facility] 414 mL/min >60 [facility] 501 mL/min >60 [facility] 65.4 RATIO 10-20 [facility] 31.0 mmol/L 21.0-32.0 [facility] Platelets bldOrdered By: Mellissa Huffman on 01-04-2023 Platelets (Bld) [#/Vol] 172 10*3/uL 150-450 [facility] Serum or plasma calcium jacinta urement (mass/volume)Ordered By: Torey Huffman on 01-04-2023 Calcium [Mass/Vol] 8.1 mg/dL 8.5-10.1 [facility] Serum or plasma creatinine m easurement (mass/volume)Ordered By: Torey Huffman on 01-04-2023 Creatinine [Mass/Vol] 0.26 mg/dL 0.70-1.30 [facility] Comment on above: The validity of the calculated GFR & GFRAA in patients over 70 years has not been determined. Clinical correlation is essential. Serum or plasma urea nitroge n measurement (mass/volume)Ordered By: Torey Huffman on 01-04-2023 Urea nitrogen [Mass/Vol] 17 mg/dL 7-18 [facility] Thin prep Papanicolaou smear with manual screeningOrdered By: Torey Huffman on 01-04-2023 Thin prep Papanicolaou smear with manual screening 5 5-15 [facility] Basophil percentageOrdered B y: Donte Mis on 12-13-2022 Basophil percentage 116 mg/dL 74-106 [facility] Basophil percentage 141 mmol/L 136-145 [facility] Basophil percentage 3.4 mmol/L 3.5-5.1 [facility] Basophil percentage 109 mmol/L 98-107 [facility] Basophils (Bld) [#/Vol] 7.6 10*3/uL 4.4-11.0 [facility] Chloride [Moles/Vol] 109 mmol/L 98-107 [facility] Glucose [Mass/Vol] 116 mg/dL 74-106 [facility] Comment on above: Fasting Glucose resu lt from 100 to 125 mg/dL suggests IMPAIRED HOMEOSTASIS per A.D.A. criteria. Potassium [Moles/Vol] 3.4 mmol/L 3.5-5.1 [facility] Sodium [Moles/Vol] 141 mmol/L 136-145 [facility] WBC (Bld) [#/Vol] 7.6 10*3/uL 4.4-11.0 [facility] Blood erythrocytes count (nu mber/volume)Ordered By: Donte Abebe on 12-13-2022 RBC (Bld) [#/Vol] 3.74 10*6/uL 4.6-6.2 [facility] Blood hemoglobin measurement (mass/volume)Ordered By: Donte Abebe on 12-13-2022 Hemoglobin (Bld) [Mass/Vol] 9.9 g/dL 13.0-16.5 [facility] Blood platelet mean volumeOr dered By: Donte Abebe on 12-13-2022 Platelet mean volume (Bld) [Entitic vol] 9.9 fL 6.2-12.0 [facility] Determination of erythrocyte mean corpuscular volume (MCV)Ordered By: Donte Abebe on 12-13-2022 MCV (RBC) [Entitic vol] 87.4 fL 80-94 [facility] Hematocrit Auto (Bld) [Volum e fraction]Ordered By: Donte Abebe on 12-13-2022 Hematocrit (Bld) [Volume fraction] 32.7 % 40-54 [facility] - Chemistry and C hemistry - challengeOrdered By: Donte Abebe on 12-13-2022 CO2 [Moles/Vol] 27.0 mmol/L 21.0-32.0 [facility] Urea nitrogen/Creatinine [Mass ratio] 47.2 mg/mg 10-20 [facility] - Hematology and Cell countsOrdered By: Donte Abebe on 12-13-2022 Erythrocyte distribution width (RBC) [Entitic vol] 46.0 fL 35.1-43.9 [facility] Erythrocyte distribution width (RBC) [Ratio] 14.4 % 11.6-14.6 [facility] MCH (RBC) [Entitic mass] 26.5 pg 27.0-32.0 [facility] MCHC Auto (RBC) [Mass/Vol]Or dered By: Donte Abebe on 12-13-2022 MCHC (RBC) [Mass/Vol] 30.3 g/dL 32-36 [facility] No Panel InformationOrdered By: Donte Abebe on 12-13-2022 Estimated Creatinine Clearance Calc 277.78 ml/min [facility] Estimated GFR (MDRD) Amer 515 mL/min >60 [facility] Comment on above: GFR Calc Estimated GFR (MDRD) Non-Af Amer 426 mL/min >60 [facility] Comment on above: Non- GFR Calc 26.5 pg 27.0-32.0 [facility] 14.4 % 11.6-14.6 [facility] 46.0 fl 35.1-43.9 [facility] 426 mL/min >60 [facility] 515 mL/min >60 [facility] 277.78 ml/min [facility] 47.2 RATIO 12-11 [facility] 27.0 mmol/L 21.0-32.0 [facility] Platelets bldOrdered By: Sho Abebe on 12-13-2022 Platelets (Bld) [#/Vol] 166 10*3/uL 150-450 [facility] Serum or plasma calcium jacinta urement (mass/volume)Ordered By: Donte Abebe on 12-13-2022 Calcium [Mass/Vol] 7.4 mg/dL 8.5-10.1 [facility] Serum or plasma creatinine m easurement (mass/volume)Ordered By: Donte Abebe on 12-13-2022 Creatinine [Mass/Vol] 0.25 mg/dL 0.70-1.30 [facility] Comment on above: The validity of the calculated GFR & GFRAA in patients over 70 years has not been determined. Clinical correlation is essential. Serum or plasma urea nitroge n measurement (mass/volume)Ordered By: Donte Abebe on 12-13-2022 Urea nitrogen [Mass/Vol] 12 mg/dL 7-18 [facility] Thin prep Papanicolaou smear with manual screeningOrdered By: Donte Abebe on 12-13-2022 Thin prep Papanicolaou smear with manual screening 5 5-15 [facility] Basophil percentageOrdered B y: Donte Abebe on 12-11-2022 Chloride [Moles/Vol] 111 mmol/L 98-107 [facility] Glucose [Mass/Vol] 101 mg/dL 74-106 [facility] Comment on above: Fasting Glucose resu lt from 100 to 125 mg/dL suggests IMPAIRED HOMEOSTASIS per A.D.A. criteria. Potassium [Moles/Vol] 2.8 mmol/L 3.5-5.1 [facility] Sodium [Moles/Vol] 144 mmol/L 136-145 [facility] WBC (Bld) [#/Vol] 7.6 10*3/uL 4.4-11.0 [facility] Blood erythrocytes count (nu mber/volume)Ordered By: Donte Abebe on 12-11-2022 RBC (Bld) [#/Vol] 3.90 10*6/uL 4.6-6.2 [facility] Blood hemoglobin measurement (mass/volume)Ordered By: Donte Abebe on 12-11-2022 Hemoglobin (Bld) [Mass/Vol] 10.3 g/dL 13.0-16.5 [facility] Blood platelet mean volumeOr dered By: Donte Abebe on 12-11-2022 Platelet mean volume (Bld) [Entitic vol] 9.9 fL 6.2-12.0 [facility] Determination of erythrocyte mean corpuscular volume (MCV)Ordered By: Donte Abebe on 12-11-2022 MCV (RBC) [Entitic vol] 85.9 fL 80-[address] [facility] Hematocrit Auto (Bld) [Volum e fraction]Ordered By: Donte Abebe on 12-11-2022 Hematocrit (Bld) [Volume fraction] 33.5 % 40-54 [facility] - Chemistry and C hemistry - challengeOrdered By: Donte Abebe on 12-11-2022 CO2 [Moles/Vol] 29.0 mmol/L 21.0-32.0 [facility] Urea nitrogen/Creatinine [Mass ratio] 69.8 mg/mg 12-11 [facility] - Hematology and Cell countsOrdered By: Donet Abebe on 12-11-2022 Erythrocyte distribution width (RBC) [Entitic vol] 44.6 fL 35.1-43.9 [facility] Erythrocyte distribution width (RBC) [Ratio] 14.4 % 11.6-14.6 [facility] MCH (RBC) [Entitic mass] 26.4 pg 27.0-32.0 [facility] MCHC Auto (RBC) [Mass/Vol]Or dered By: Donte Abebe on 12-11-2022 MCHC (RBC) [Mass/Vol] 30.7 g/dL 32-36 [facility] No Panel InformationOrdered By: Donte Abebe on 12-11-2022 Estimated Creatinine Clearance Calc 267.09 ml/min [facility] Estimated GFR (MDRD) Amer 506 mL/min >60 [facility] Comment on above: GFR Calc Estimated GFR (MDRD) Non-Af Amer 418 mL/min >60 [facility] Comment on above: Non- GFR Calc Platelets bldOrdered By: Sho Abebe on 12-11-2022 Platelets (Bld) [#/Vol] 183 10*3/uL 150-450 [facility] Serum or plasma calcium jacinta urement (mass/volume)Ordered By: Donte Abebe on 12-11-2022 Calcium [Mass/Vol] 7.8 mg/dL 8.5-10.1 [facility] Serum or plasma creatinine m easurement (mass/volume)Ordered By: Donte Abebe on 12-11-2022 Creatinine [Mass/Vol] 0.26 mg/dL 0.70-1.30 [facility] Comment on above: The validity of the calculated GFR & GFRAA in patients over 70 years has not been determined. Clinical correlation is essential. Serum or plasma urea nitroge n measurement (mass/volume)Ordered By: Donte Abebe on 12-11-2022 Urea nitrogen [Mass/Vol] 18 mg/dL 7-18 [facility] Thin prep Papanicolaou smear with manual screeningOrdered By: Donte Abebe on 12-11-2022 Thin prep Papanicolaou smear with manual screening 4 5-15 [facility] Absolute lymphocyte countOrd ered By: Miky Rahman on 12-10-2022 Lymphocytes Auto (Unsp spec) [#/Vol] 2.23 10*3/uL 0.83-4.51 [facility] Basophil percentageOrdered B y: Miky Rahman on 12-10-2022 Basophil percentage 8.7 g/dL 6.4-8.2 [facility] Basophil percentage 0.20 mg/dL 0.20-1.00 [facility] Basophils (Bld) [#/Vol] 8.4 10*3/uL 2.0-7.7 [facility] Basophils/100 WBC (Bld) 0.2 % 0-[address] [facility] Basophils/100 WBC (Bld) 72.2 % 47-70 [facility] Basophils/100 WBC (Bld) 2.1 % 0-5 [facility] Bilirubin [Mass/Vol] 0.20 mg/dL 0.20-1.00 [facility] Comment on above: For patients on eltr ombopag therapy, use of Dimension [place] TBIL is not recommended. Chloride [Moles/Vol] 105 mmol/L 98-107 [facility] Eosinophils/100 WBC (Bld) 2.1 % 0-5 [facility] Glucose [Mass/Vol] 109 mg/dL 74-106 [facility] Comment on above: Fasting Glucose resu lt from 100 to 125 mg/dL suggests IMPAIRED HOMEOSTASIS per A.D.A. criteria. Neutrophils (Bld) [#/Vol] 8.4 10*3/uL 2.0-7.7 [facility] Neutrophils/100 WBC (Bld) 72.2 % 47-70 [facility] Potassium [Moles/Vol] 3.8 mmol/L 3.5-5.1 [facility] Protein [Mass/Vol] 8.7 g/dL 6.4-8.2 [facility] Sodium [Moles/Vol] 140 mmol/L 136-145 [facility] WBC (Bld) [#/Vol] 11.6 10*3/uL 4.4-11.0 [facility] Blood erythrocytes count (nu mber/volume)Ordered By: Miky Rahman on 12-10-2022 RBC (Bld) [#/Vol] 4.77 10*6/uL 4.6-6.2 [facility] Blood hemoglobin measurement (mass/volume)Ordered By: Miky Rahman on 12-10-2022 Hemoglobin (Bld) [Mass/Vol] 12.6 g/dL 13.0-16.5 [facility] Blood lymphocytes/100 leukoc ytesOrdered By: Miky Rahman on 12-10-2022 Lymphocytes/100 WBC (Bld) 19.2 % 19-41 [facility] Blood monocytes/100 leukocyt esOrdered By: Miky Rahman on 12-10-2022 Monocytes/100 WBC (Bld) 5.9 % 0-[address] [facility] Blood platelet mean volumeOr dered By: Miky Rahman on 12-10-2022 Platelet mean volume (Bld) [Entitic vol] 10.0 fL 6.2-12.0 [facility] Determination of erythrocyte mean corpuscular volume (MCV)Ordered By: Miky Rahman on 12-10-2022 MCV (RBC) [Entitic vol] 83.4 fL 80-[address] [facility] Hematocrit Auto (Bld) [Volum e fraction]Ordered By: Miky Rahman on 12-10-2022 Hematocrit (Bld) [Volume fraction] 39.8 % 40-54 [facility] INR in Blood by Coagulation assayOrdered By: Miky Rahman on 12-10-2022 INR Coag (Bld) [Relative time] 1.0 {INR} [facility] - Chemistry and C hemistry - challengeOrdered By: Miky Rahman on 12-10-2022 ALP [Catalytic activity/Vol] 144 U/L 45-117 [facility] ALT [Catalytic activity/Vol] 29 U/L 16-61 [facility] CO2 [Moles/Vol] 29.0 mmol/L 21.0-32.0 [facility] Globulin (S) [Mass/Vol] 5.4 g/dL 2.2-4.[address] [facility] Lipase [Catalytic activity/Vol] 58 U/L 13-75 [facility] Comment on above: Please note:LIPASE r evised reference range effective 22. New Lipase methodology. Expected to produce lower values than the previous assay method. NEW Reference Range: 13 - 75 U/L Urea nitrogen/Creatinine [Mass ratio] 45.3 mg/mg 10-20 [facility] - CoagulationOrde red By: Miky Rahman on 12-10-2022 aPTT Coag (Bld) [Time] 35.6 s 24.1-36.2 [facility] PT Coag (PPP) [Time] 13.4 s 11.7-14.9 [facility] - Hematology and Cell countsOrdered By: Miky Rahman on 12-10-2022 Erythrocyte distribution width (RBC) [Entitic vol] 42.8 fL 35.1-43.9 [facility] Erythrocyte distribution width (RBC) [Ratio] 14.0 % 11.6-14.6 [facility] Immature granulocytes/100 WBC (Bld) 0.400 % 0.0-0.9 [facility] Comment on above: IG% - Immature Granu locytes (promyelocytes, myelocytes and metamyelocytes) > 1% indicates that a LEFT SHIFT is Present. MCH (RBC) [Entitic mass] 26.4 pg 27.0-32.0 [facility] Nucleated RBC/100 WBC (Bld) [Ratio] 0 % 0-5 [facility] MCHC Auto (RBC) [Mass/Vol]Or dered By: Miky Rahman on 12-10-2022 MCHC (RBC) [Mass/Vol] 31.7 g/dL 32-36 [facility] No Panel InformationOrdered By: Miky Rahman on 12-10-2022 Estimated Creatinine Clearance Calc 198.41 ml/min [facility] Estimated GFR (MDRD) Amer 352 mL/min >60 [facility] Comment on above: GFR Calc Estimated GFR (MDRD) Non-Af Amer 291 mL/min >60 [facility] Comment on above: Non- GFR Calc 0.400 % 0.0-0.9 [facility] 0 % 0-5 [facility] 13.4 SECONDS 11.7-14.9 [facility] 35.6 Seconds 24.1-36.2 [facility] 5.4 g/dL 2.2-4.2 [facility] 58 U/L 13-75 [facility] 144 U/L 45-117 [facility] 29 U/L 16-61 [facility] Platelets bldOrdered By: Maximus Rahman on 12-10-2022 Platelets (Bld) [#/Vol] 228 10*3/uL 150-450 [facility] Serum or plasma albumin jacinta urement (mass/volume)Ordered By: Miky Rahman on 12-10-2022 Albumin [Mass/Vol] 3.3 g/dL 3.2-5.0 [facility] Serum or plasma albumin/glob ulin mass ratioOrdered By: Miky Rahman on 12-10-2022 Albumin/Globulin [Mass ratio] 0.6 {ratio} 0.9-2.4 [facility] Serum or plasma calcium jacinta urement (mass/volume)Ordered By: Miky Rahman on 12-10-2022 Calcium [Mass/Vol] 8.6 mg/dL 8.5-10.1 [facility] Serum or plasma creatinine m easurement (mass/volume)Ordered By: Miky Rahman on 12-10-2022 Creatinine [Mass/Vol] 0.35 mg/dL 0.70-1.30 [facility] Comment on above: The validity of the calculated GFR & GFRAA in patients over 70 years has not been determined. Clinical correlation is essential. Serum or plasma urea nitroge n measurement (mass/volume)Ordered By: Miky Rahman on 12-10-2022 Urea nitrogen [Mass/Vol] 16 mg/dL 7-18 [facility] Thin prep Papanicolaou smear with manual screeningOrdered By: Miky Rahman on 12-10-2022 Thin prep Papanicolaou smear with manual screening 19 U/L 15-37 [facility] Thin prep Papanicolaou smear with manual screening 6 5-15 [facility] Absolute lymphocyte countOrd ered By: Torey Huffman on 12-07-2022 Lymphocytes Auto (Unsp spec) [#/Vol] 2.35 10*3/uL 0.83-4.51 [facility] Basophil percentageOrdered B y: Torey Huffman on 12-07-2022 Basophil percentage 100 mg/dL 74-106 [facility] Basophil percentage 139 mmol/L 136-145 [facility] Basophil percentage 3.5 mmol/L 3.5-5.1 [facility] Basophil percentage 104 mmol/L 98-107 [facility] Basophils (Bld) [#/Vol] 6.7 10*3/uL 4.4-11.0 [facility] Basophils (Bld) [#/Vol] 3.4 10*3/uL 2.0-7.7 [facility] Basophils/100 WBC (Bld) 0.3 % 0-[address] [facility] Basophils/100 WBC (Bld) 50.3 % 47-[address] [facility] Basophils/100 WBC (Bld) 5.3 % 0-5 [facility] Chloride [Moles/Vol] 104 mmol/L 98-107 [facility] Eosinophils/100 WBC (Bld) 5.3 % 0-5 [facility] Glucose [Mass/Vol] 100 mg/dL 74-106 [facility] Comment on above: Fasting Glucose resu lt from 100 to 125 mg/dL suggests IMPAIRED HOMEOSTASIS per A.D.A. criteria. Neutrophils (Bld) [#/Vol] 3.4 10*3/uL 2.0-7.7 [facility] Neutrophils/100 WBC (Bld) 50.3 % 47-70 [facility] Potassium [Moles/Vol] 3.5 mmol/L 3.5-5.1 [facility] Sodium [Moles/Vol] 139 mmol/L 136-145 [facility] WBC (Bld) [#/Vol] 6.7 10*3/uL 4.4-11.0 [facility] Blood erythrocytes count (nu mber/volume)Ordered By: Torey Huffman on 12-07-2022 RBC (Bld) [#/Vol] 4.10 10*6/uL 4.6-6.2 [facility] Blood hemoglobin measurement (mass/volume)Ordered By: Torey Huffman on 12-07-2022 Hemoglobin (Bld) [Mass/Vol] 10.8 g/dL 13.0-16.5 [facility] Blood lymphocytes/100 leukoc ytesOrdered By: Torey Huffman on 12-07-2022 Lymphocytes/100 WBC (Bld) 34.9 % 19-41 [facility] Blood monocytes/100 leukocyt esOrdered By: Torey Huffman on 12-07-2022 Monocytes/100 WBC (Bld) 8.9 % 0-10 [facility] Blood platelet mean volumeOr dered By: Torey Huffman on 12-07-2022 Platelet mean volume (Bld) [Entitic vol] 10.7 fL 6.2-12.0 [facility] Determination of erythrocyte mean corpuscular volume (MCV)Ordered By: Torey Huffman on 12-07-2022 MCV (RBC) [Entitic vol] 86.3 fL 80-[address] [facility] Hematocrit Auto (Bld) [Volum e fraction]Ordered By: Torey Huffman on 12-07-2022 Hematocrit (Bld) [Volume fraction] 35.4 % 40-54 [facility] - Chemistry and C hemistry - challengeOrdered By: Torey Huffman on 12-07-2022 CO2 [Moles/Vol] 30.0 mmol/L 21.0-32.0 [facility] Urea nitrogen/Creatinine [Mass ratio] 58.1 mg/mg 10-20 [facility] - Hematology and Cell countsOrdered By: Torey Huffman on 12-07-2022 Erythrocyte distribution width (RBC) [Entitic vol] 43.8 fL 35.1-43.9 [facility] Erythrocyte distribution width (RBC) [Ratio] 13.9 % 11.6-14.6 [facility] Immature granulocytes/100 WBC (Bld) 0.300 % 0.0-0.9 [facility] Comment on above: IG% - Immature Granu locytes (promyelocytes, myelocytes and metamyelocytes) > 1% indicates that a LEFT SHIFT is Present. MCH (RBC) [Entitic mass] 26.3 pg 27.0-32.0 [facility] Nucleated RBC/100 WBC (Bld) [Ratio] 0 % 0-5 [facility] MCHC Auto (RBC) [Mass/Vol]Or dered By: Torey Huffman on 12-07-2022 MCHC (RBC) [Mass/Vol] 30.5 g/dL 32-36 [facility] No Panel InformationOrdered By: Torey Huffman on 12-07-2022 Estimated GFR (MDRD) Amer 385 mL/min >60 [facility] Comment on above: GFR Calc Estimated GFR (MDRD) Non-Af Amer 318 mL/min >60 [facility] Comment on above: Non- GFR Calc 26.3 pg 27.0-32.0 [facility] 13.9 % 11.6-14.6 [facility] 43.8 fl 35.1-43.9 [facility] 0.300 % 0.0-0.9 [facility] 0 % 0-5 [facility] 318 mL/min >60 [facility] 385 mL/min >60 [facility] 58.1 RATIO 10-20 [facility] 30.0 mmol/L 21.0-32.0 [facility] Platelets bldOrdered By: Mellissa Huffman on 12-07-2022 Platelets (Bld) [#/Vol] 208 10*3/uL 150-450 [facility] Serum or plasma calcium jacinta urement (mass/volume)Ordered By: Torey Huffman on 12-07-2022 Calcium [Mass/Vol] 8.3 mg/dL 8.5-10.1 [facility] Serum or plasma creatinine m easurement (mass/volume)Ordered By: Torey Huffman on 12-07-2022 Creatinine [Mass/Vol] 0.33 mg/dL 0.70-1.30 [facility] Comment on above: The validity of the calculated GFR & GFRAA in patients over 70 years has not been determined. Clinical correlation is essential. Serum or plasma urea nitroge n measurement (mass/volume)Ordered By: Torey Huffman on 12-07-2022 Urea nitrogen [Mass/Vol] 19 mg/dL 7-18 [facility] Thin prep Papanicolaou smear with manual screeningOrdered By: Torey Huffman on 12-07-2022 Thin prep Papanicolaou smear with manual screening 5 5-15 [facility] Absolute lymphocyte countOrd ered By: Torey Huffman on 11-12-2022 Lymphocytes Auto (Unsp spec) [#/Vol] 2.33 10*3/uL 0.83-4.51 [facility] Basophil percentageOrdered B y: Torey Huffman on 11-12-2022 Basophils/100 WBC (Bld) 0.1 % 0-[address] [facility] Chloride [Moles/Vol] 104 mmol/L 98-107 [facility] Eosinophils/100 WBC (Bld) 4.2 % 0-5 [facility] Glucose [Mass/Vol] 99 mg/dL 74-106 [facility] Neutrophils (Bld) [#/Vol] 4.4 10*3/uL 2.0-7.7 [facility] Neutrophils/100 WBC (Bld) 56.0 % 47-70 [facility] Potassium [Moles/Vol] 3.6 mmol/L 3.5-5.1 [facility] Sodium [Moles/Vol] 140 mmol/L 136-145 [facility] WBC (Bld) [#/Vol] 7.8 10*3/uL 4.4-11.0 [facility] Blood erythrocytes count (nu mber/volume)Ordered By: Torey Huffman on 11-12-2022 RBC (Bld) [#/Vol] 4.11 10*6/uL 4.6-6.2 [facility] Blood hemoglobin measurement (mass/volume)Ordered By: Torey Huffman on 11-12-2022 Hemoglobin (Bld) [Mass/Vol] 10.9 g/dL 13.0-16.5 [facility] Blood lymphocytes/100 leukoc ytesOrdered By: Torey Huffman on 11-12-2022 Lymphocytes/100 WBC (Bld) 29.7 % 19-41 [facility] Blood monocytes/100 leukocyt esOrdered By: Torey Huffman on 11-12-2022 Monocytes/100 WBC (Bld) 9.7 % 0-10 [facility] Blood platelet mean volumeOr dered By: Torey Huffman on 11-12-2022 Platelet mean volume (Bld) [Entitic vol] 10.3 fL 6.2-12.0 [facility] Determination of erythrocyte mean corpuscular volume (MCV)Ordered By: Torey Huffman on 11-12-2022 MCV (RBC) [Entitic vol] 86.6 fL 80-[address] [facility] Hematocrit Auto (Bld) [Volum e fraction]Ordered By: Torey Huffman on 11-12-2022 Hematocrit (Bld) [Volume fraction] 35.6 % 40-54 [facility] - Chemistry and C hemistry - challengeOrdered By: Torey Huffman on 11-12-2022 CO2 [Moles/Vol] 31.0 mmol/L 21.0-32.0 [facility] Urea nitrogen/Creatinine [Mass ratio] 81.1 mg/mg 10-20 [facility] - Hematology and Cell countsOrdered By: Torey Huffman on 11-12-2022 Erythrocyte distribution width (RBC) [Entitic vol] 43.8 fL 35.1-43.9 [facility] Erythrocyte distribution width (RBC) [Ratio] 13.9 % 11.6-14.6 [facility] Immature granulocytes/100 WBC (Bld) 0.300 % 0.0-0.9 [facility] Comment on above: IG% - Immature Granu locytes (promyelocytes, myelocytes and metamyelocytes) > 1% indicates that a LEFT SHIFT is Present. MCH (RBC) [Entitic mass] 26.5 pg 27.0-32.0 [facility] Nucleated RBC/100 WBC (Bld) [Ratio] 0 % 0-5 [facility] MCHC Auto (RBC) [Mass/Vol]Or dered By: Torey Huffman on 11-12-2022 MCHC (RBC) [Mass/Vol] 30.6 g/dL 32-36 [facility] No Panel InformationOrdered By: Torey Huffman on 11-12-2022 Estimated GFR (MDRD) Amer 743 mL/min >60 [facility] Comment on above: GFR Calc Estimated GFR (MDRD) Non-Af Amer 614 mL/min >60 [facility] Comment on above: Non- GFR Calc Platelets bldOrdered By: Mellissa Huffman on 11-12-2022 Platelets (Bld) [#/Vol] 212 10*3/uL 150-450 [facility] Serum or plasma calcium jacinta urement (mass/volume)Ordered By: Torey Huffman on 11-12-2022 Calcium [Mass/Vol] 8.4 mg/dL 8.5-10.1 [facility] Serum or plasma creatinine m easurement (mass/volume)Ordered By: Torey Huffman on 11-12-2022 Creatinine [Mass/Vol] 0.18 mg/dL 0.70-1.30 [facility] Comment on above: The validity of the calculated GFR & GFRAA in patients over 70 years has not been determined. Clinical correlation is essential. Serum or plasma urea nitroge n measurement (mass/volume)Ordered By: Torey Huffman on 11-12-2022 Urea nitrogen [Mass/Vol] 15 mg/dL 7-18 [facility] Thin prep Papanicolaou smear with manual screeningOrdered By: Torey Huffman on 11-12-2022 Thin prep Papanicolaou smear with manual screening 5 5-15 [facility] Absolute lymphocyte countOrd ered By: Torey Huffman on 10-14-2022 Lymphocytes Auto (Unsp spec) [#/Vol] 2.10 10*3/uL 0.83-4.51 [facility] Basophil percentageOrdered B y: Torey Huffman on 10-14-2022 Basophils/100 WBC (Bld) 0.3 % 0-[address] [facility] Chloride [Moles/Vol] 103 mmol/L 98-107 [facility] Eosinophils/100 WBC (Bld) 3.8 % 0-5 [facility] Glucose [Mass/Vol] 87 mg/dL 74-106 [facility] Neutrophils (Bld) [#/Vol] 3.5 10*3/uL 2.0-7.7 [facility] Neutrophils/100 WBC (Bld) 54.4 % 47-70 [facility] Potassium [Moles/Vol] 3.5 mmol/L 3.5-5.1 [facility] Sodium [Moles/Vol] 137 mmol/L 136-145 [facility] WBC (Bld) [#/Vol] 6.4 10*3/uL 4.4-11.0 [facility] Blood erythrocytes count (nu mber/volume)Ordered By: Torey Huffman on 10-14-2022 RBC (Bld) [#/Vol] 4.11 10*6/uL 4.6-6.2 [facility] Blood hemoglobin measurement (mass/volume)Ordered By: Torey Huffman on 10-14-2022 Hemoglobin (Bld) [Mass/Vol] 11.2 g/dL 13.0-16.5 [facility] Blood lymphocytes/100 leukoc ytesOrdered By: Torey Huffman on 10-14-2022 Lymphocytes/100 WBC (Bld) 32.9 % 19-41 [facility] Blood monocytes/100 leukocyt esOrdered By: Torey Huffman on 10-14-2022 Monocytes/100 WBC (Bld) 8.3 % 0-[address] [facility] Blood platelet mean volumeOr dered By: Torey Huffman on 10-14-2022 Platelet mean volume (Bld) [Entitic vol] 10.3 fL 6.2-12.0 [facility] Determination of erythrocyte mean corpuscular volume (MCV)Ordered By: Torey Huffman on 10-14-2022 MCV (RBC) [Entitic vol] 83.2 fL 80-[address] [facility] Hematocrit Auto (Bld) [Volum e fraction]Ordered By: Torey Huffman on 10-14-2022 Hematocrit (Bld) [Volume fraction] 34.2 % 40-54 [facility] - Chemistry and C hemistry - challengeOrdered By: Torey Huffman on 10-14-2022 CO2 [Moles/Vol] 28.0 mmol/L 21.0-32.0 [facility] Urea nitrogen/Creatinine [Mass ratio] 48.4 mg/mg 10-20 [facility] - Hematology and Cell countsOrdered By: Torey Huffman on 10-14-2022 Erythrocyte distribution width (RBC) [Entitic vol] 41.8 fL 35.1-43.9 [facility] Erythrocyte distribution width (RBC) [Ratio] 13.7 % 11.6-14.6 [facility] Immature granulocytes/100 WBC (Bld) 0.300 % 0.0-0.9 [facility] Comment on above: IG% - Immature Granu locytes (promyelocytes, myelocytes and metamyelocytes) > 1% indicates that a LEFT SHIFT is Present. MCH (RBC) [Entitic mass] 27.3 pg 27.0-32.0 [facility] Nucleated RBC/100 WBC (Bld) [Ratio] 0 % 0-5 [facility] MCHC Auto (RBC) [Mass/Vol]Or dered By: Torey Huffman on 10-14-2022 MCHC (RBC) [Mass/Vol] 32.7 g/dL 32-36 [facility] No Panel InformationOrdered By: Torey Huffman on 10-14-2022 Estimated GFR (MDRD) Amer 444 mL/min >60 [facility] Comment on above: GFR Calc Estimated GFR (MDRD) Non-Af Amer 367 mL/min >60 [facility] Comment on above: Non- GFR Calc Platelets bldOrdered By: Mellissa Huffman on 10-14-2022 Platelets (Bld) [#/Vol] 211 10*3/uL 150-450 [facility] Serum or plasma calcium jacinta urement (mass/volume)Ordered By: Torey Huffman on 10-14-2022 Calcium [Mass/Vol] 8.6 mg/dL 8.5-10.1 [facility] Serum or plasma creatinine m easurement (mass/volume)Ordered By: Torey Huffman on 10-14-2022 Creatinine [Mass/Vol] 0.29 mg/dL 0.70-1.30 [facility] Comment on above: The validity of the calculated GFR & GFRAA in patients over 70 years has not been determined. Clinical correlation is essential. Serum or plasma urea nitroge n measurement (mass/volume)Ordered By: Torey Huffman on 10-14-2022 Urea nitrogen [Mass/Vol] 14 mg/dL 7-18 [facility] Thin prep Papanicolaou smear with manual screeningOrdered By: Torey Huffman on 10-14-2022 Thin prep Papanicolaou smear with manual screening 6 5-15 [facility] Absolute lymphocyte countOrd ered By: Chente Conn on 09-14-2022 Lymphocytes Auto (Unsp spec) [#/Vol] 1.95 10*3/uL 0.83-4.51 [facility] Basophil percentageOrdered B y: Chente Conn on 09-14-2022 Basophil percentage 21.5 ug/mL 10.0-40.0 [facility] Basophils/100 WBC (Bld) 0.3 % 0-[address] [facility] Chloride [Moles/Vol] 104 mmol/L 98-107 [facility] Eosinophils/100 WBC (Bld) 3.7 % 0-5 [facility] Glucose [Mass/Vol] 91 mg/dL 74-106 [facility] Neutrophils (Bld) [#/Vol] 3.3 10*3/uL 2.0-7.7 [facility] Neutrophils/100 WBC (Bld) 54.7 % 47-70 [facility] Potassium [Moles/Vol] 4.0 mmol/L 3.5-5.1 [facility] Sodium [Moles/Vol] 138 mmol/L 136-145 [facility] WBC (Bld) [#/Vol] 6.0 10*3/uL 4.4-11.0 [facility] Blood erythrocytes count (nu mber/volume)Ordered By: Chente Conn on 09-14-2022 RBC (Bld) [#/Vol] 3.87 10*6/uL 4.6-6.2 [facility] Blood hemoglobin measurement (mass/volume)Ordered By: Chente Conn on 09-14-2022 Hemoglobin (Bld) [Mass/Vol] 10.5 g/dL 13.0-16.5 [facility] Blood lymphocytes/100 leukoc ytesOrdered By: Chente Conn on 09-14-2022 Lymphocytes/100 WBC (Bld) 32.4 % 19-41 [facility] Blood monocytes/100 leukocyt esOrdered By: Chente Conn on 09-14-2022 Monocytes/100 WBC (Bld) 8.7 % 0-[address] [facility] Blood platelet mean volumeOr dered By: Chente Conn on 09-14-2022 Platelet mean volume (Bld) [Entitic vol] 10.2 fL 6.2-12.0 [facility] Determination of erythrocyte mean corpuscular volume (MCV)Ordered By: Chente Conn on 09-14-2022 MCV (RBC) [Entitic vol] 86.8 fL 80-[address] [facility] Hematocrit Auto (Bld) [Volum e fraction]Ordered By: Chente Conn on 09-14-2022 Hematocrit (Bld) [Volume fraction] 33.6 % 40-54 [facility] - Chemistry and C hemistry - challengeOrdered By: Chente Conn on 09-14-2022 CO2 [Moles/Vol] 30.0 mmol/L 21.0-32.0 [facility] Urea nitrogen/Creatinine [Mass ratio] 65.6 mg/mg 10-20 [facility] - Hematology and Cell countsOrdered By: Chente Conn on 09-14-2022 Erythrocyte distribution width (RBC) [Entitic vol] 44.9 fL 35.1-43.9 [facility] Erythrocyte distribution width (RBC) [Ratio] 14.1 % 11.6-14.6 [facility] Immature granulocytes/100 WBC (Bld) 0.200 % 0.0-0.9 [facility] Comment on above: IG% - Immature Granu locytes (promyelocytes, myelocytes and metamyelocytes) > 1% indicates that a LEFT SHIFT is Present. MCH (RBC) [Entitic mass] 27.1 pg 27.0-32.0 [facility] Nucleated RBC/100 WBC (Bld) [Ratio] 0 % 0-5 [facility] MCHC Auto (RBC) [Mass/Vol]Or dered By: Chente Conn on 09-14-2022 MCHC (RBC) [Mass/Vol] 31.3 g/dL 32-36 [facility] No Panel InformationOrdered By: Chente Conn on 09-14-2022 Estimated GFR (MDRD) Amer 540 mL/min >60 [facility] Comment on above: GFR Calc Estimated GFR (MDRD) Non-Af Amer 447 mL/min >60 [facility] Comment on above: Non- GFR Calc Platelets bldOrdered By: Darwin Conn on 09-14-2022 Platelets (Bld) [#/Vol] 197 10*3/uL 150-450 [facility] Serum or plasma calcium jacinta urement (mass/volume)Ordered By: Chente Conn on 09-14-2022 Calcium [Mass/Vol] 8.2 mg/dL 8.5-10.1 [facility] Serum or plasma creatinine m easurement (mass/volume)Ordered By: Chente Conn on 09-14-2022 Creatinine [Mass/Vol] 0.24 mg/dL 0.70-1.30 [facility] Comment on above: The validity of the calculated GFR & GFRAA in patients over 70 years has not been determined. Clinical correlation is essential. Serum or plasma urea nitroge n measurement (mass/volume)Ordered By: Chente Conn on 09-14-2022 Urea nitrogen [Mass/Vol] 16 mg/dL 7-18 [facility] Thin prep Papanicolaou smear with manual screeningOrdered By: Chente Conn on 09-14-2022 Thin prep Papanicolaou smear with manual screening 4 5-15 [facility] Absolute lymphocyte countOrd ered By: Torey Huffman on 08-17-2022 Lymphocytes Auto (Unsp spec) [#/Vol] 2.34 10*3/uL 0.83-4.51 [facility] Basophil percentageOrdered B y: Torey Huffman on 08-17-2022 Basophils/100 WBC (Bld) 0.3 % 0-[address] [facility] Chloride [Moles/Vol] 103 mmol/L 98-107 [facility] Eosinophils/100 WBC (Bld) 3.6 % 0-5 [facility] Glucose [Mass/Vol] 87 mg/dL 74-106 [facility] Neutrophils (Bld) [#/Vol] 2.9 10*3/uL 2.0-7.7 [facility] Neutrophils/100 WBC (Bld) 47.8 % 47-70 [facility] Potassium [Moles/Vol] 3.9 mmol/L 3.5-5.1 [facility] Sodium [Moles/Vol] 137 mmol/L 136-145 [facility] WBC (Bld) [#/Vol] 6.1 10*3/uL 4.4-11.0 [facility] Blood erythrocytes count (nu mber/volume)Ordered By: Torey Huffman on 08-17-2022 RBC (Bld) [#/Vol] 3.97 10*6/uL 4.6-6.2 [facility] Blood hemoglobin measurement (mass/volume)Ordered By: Torey Huffman on 08-17-2022 Hemoglobin (Bld) [Mass/Vol] 10.9 g/dL 13.0-16.5 [facility] Blood lymphocytes/100 leukoc ytesOrdered By: Torey Huffman on 08-17-2022 Lymphocytes/100 WBC (Bld) 38.1 % 19-41 [facility] Blood monocytes/100 leukocyt esOrdered By: Torey Huffman on 08-17-2022 Monocytes/100 WBC (Bld) 9.9 % 0-[address] [facility] Blood platelet mean volumeOr dered By: Torey Huffman on 08-17-2022 Platelet mean volume (Bld) [Entitic vol] 10.0 fL 6.2-12.0 [facility] Determination of erythrocyte mean corpuscular volume (MCV)Ordered By: Torey Huffman on 08-17-2022 MCV (RBC) [Entitic vol] 86.1 fL 80-[address] [facility] Hematocrit Auto (Bld) [Volum e fraction]Ordered By: Torey Huffman on 08-17-2022 Hematocrit (Bld) [Volume fraction] 34.2 % 40-54 [facility] - Chemistry and C hemistry - challengeOrdered By: Torey Huffman on 08-17-2022 CO2 [Moles/Vol] 29.0 mmol/L 21.0-32.0 [facility] Urea nitrogen/Creatinine [Mass ratio] 51.6 mg/mg 10-20 [facility] - Hematology and Cell countsOrdered By: Torey Huffman on 08-17-2022 Erythrocyte distribution width (RBC) [Entitic vol] 42.5 fL 35.1-43.9 [facility] Erythrocyte distribution width (RBC) [Ratio] 13.6 % 11.6-14.6 [facility] Immature granulocytes/100 WBC (Bld) 0.300 % 0.0-0.9 [facility] Comment on above: IG% - Immature Granu locytes (promyelocytes, myelocytes and metamyelocytes) > 1% indicates that a LEFT SHIFT is Present. MCH (RBC) [Entitic mass] 27.5 pg 27.0-32.0 [facility] Nucleated RBC/100 WBC (Bld) [Ratio] 0 % 0-5 [facility] MCHC Auto (RBC) [Mass/Vol]Or dered By: Torey Huffman on 08-17-2022 MCHC (RBC) [Mass/Vol] 31.9 g/dL 32-36 [facility] No Panel InformationOrdered By: Torey Huffman on 08-17-2022 Estimated GFR (MDRD) Amer 410 mL/min >60 [facility] Comment on above: GFR Calc Estimated GFR (MDRD) Non-Af Amer 339 mL/min >60 [facility] Comment on above: Non- GFR Calc Platelets bldOrdered By: Mellissa Huffman on 08-17-2022 Platelets (Bld) [#/Vol] 194 10*3/uL 150-450 [facility] Serum or plasma calcium jacinta urement (mass/volume)Ordered By: Torey Huffman on 08-17-2022 Calcium [Mass/Vol] 8.7 mg/dL 8.5-10.1 [facility] Serum or plasma creatinine m easurement (mass/volume)Ordered By: Torey Huffman on 08-17-2022 Creatinine [Mass/Vol] 0.31 mg/dL 0.70-1.30 [facility] Comment on above: The validity of the calculated GFR & GFRAA in patients over 70 years has not been determined. Clinical correlation is essential. Serum or plasma urea nitroge n measurement (mass/volume)Ordered By: Torey Huffman on 08-17-2022 Urea nitrogen [Mass/Vol] 16 mg/dL 7-18 [facility] Thin prep Papanicolaou smear with manual screeningOrdered By: Torey Huffman on 08-17-2022 Thin prep Papanicolaou smear with manual screening 5 5-15 [facility] Absolute lymphocyte countOrd ered By: Torey Huffman on 07-22-2022 Lymphocytes Auto (Unsp spec) [#/Vol] 2.12 10*3/uL 0.83-4.51 [facility] Basophil percentageOrdered B y: Torey Huffman on 07-22-2022 Basophils/100 WBC (Bld) 0.3 % 0-[address] [facility] Eosinophils/100 WBC (Bld) 4.9 % 0-5 [facility] Neutrophils (Bld) [#/Vol] 2.9 10*3/uL 2.0-7.7 [facility] Neutrophils/100 WBC (Bld) 49.2 % 47-70 [facility] WBC (Bld) [#/Vol] 5.9 10*3/uL 4.4-11.0 [facility] Basophil percentageOrdered B y: Chente Conn on 07-22-2022 Chloride [Moles/Vol] 102 mmol/L 98-107 [facility] Glucose [Mass/Vol] 80 mg/dL 74-106 [facility] Potassium [Moles/Vol] 3.9 mmol/L 3.5-5.1 [facility] Sodium [Moles/Vol] 139 mmol/L 136-145 [facility] Blood erythrocytes count (nu mber/volume)Ordered By: Torey Huffman on 07-22-2022 RBC (Bld) [#/Vol] 3.96 10*6/uL 4.6-6.2 [facility] Blood hemoglobin measurement (mass/volume)Ordered By: Torey Huffman on 07-22-2022 Hemoglobin (Bld) [Mass/Vol] 11.1 g/dL 13.0-16.5 [facility] Blood lymphocytes/100 leukoc ytesOrdered By: Torey Huffman on 07-22-2022 Lymphocytes/100 WBC (Bld) 35.9 % 19-41 [facility] Blood monocytes/100 leukocyt esOrdered By: Torey Huffman on 07-22-2022 Monocytes/100 WBC (Bld) 9.5 % 0-[address] [facility] Blood platelet mean volumeOr dered By: Torey Huffman on 07-22-2022 Platelet mean volume (Bld) [Entitic vol] 9.9 fL 6.2-12.0 [facility] Determination of erythrocyte mean corpuscular volume (MCV)Ordered By: Torey Huffman on 07-22-2022 MCV (RBC) [Entitic vol] 84.8 fL 80-[address] [facility] Hematocrit Auto (Bld) [Volum e fraction]Ordered By: Torey Huffman on 07-22-2022 Hematocrit (Bld) [Volume fraction] 33.6 % 40-54 [facility] - Chemistry and C hemistry - challengeOrdered By: Chente Conn on 07-22-2022 CO2 [Moles/Vol] 30.0 mmol/L 21.0-32.0 [facility] Urea nitrogen/Creatinine [Mass ratio] 36.2 mg/mg 10-20 [facility] - Hematology and Cell countsOrdered By: Torey Huffman on 07-22-2022 Erythrocyte distribution width (RBC) [Entitic vol] 42.1 fL 35.1-43.9 [facility] Erythrocyte distribution width (RBC) [Ratio] 13.5 % 11.6-14.6 [facility] Immature granulocytes/100 WBC (Bld) 0.200 % 0.0-0.9 [facility] Comment on above: IG% - Immature Granu locytes (promyelocytes, myelocytes and metamyelocytes) > 1% indicates that a LEFT SHIFT is Present. MCH (RBC) [Entitic mass] 28.0 pg 27.0-32.0 [facility] Nucleated RBC/100 WBC (Bld) [Ratio] 0 % 0-5 [facility] Auto (RBC) [Mass/Vol]Or dered By: Torey Huffman on 07-22-2022 MCHC (RBC) [Mass/Vol] 33.0 g/dL 32-36 [facility] No Panel InformationOrdered By: Chente Conn on 07-22-2022 Estimated GFR (MDRD) Amer 346 mL/min >60 [facility] Comment on above: GFR Calc Estimated GFR (MDRD) Non-Af Amer 286 mL/min >60 [facility] Comment on above: Non- GFR Calc Platelets bldOrdered By: Mellissa Huffman on 07-22-2022 Platelets (Bld) [#/Vol] 171 10*3/uL 150-450 [facility] Serum or plasma calcium jacinta urement (mass/volume)Ordered By: Chente Conn on 07-22-2022 Calcium [Mass/Vol] 8.6 mg/dL 8.5-10.1 [facility] Serum or plasma creatinine m easurement (mass/volume)Ordered By: Chente Conn on 07-22-2022 Creatinine [Mass/Vol] 0.36 mg/dL 0.70-1.30 [facility] Comment on above: The validity of the calculated GFR & GFRAA in patients over 70 years has not been determined. Clinical correlation is essential. Serum or plasma urea nitroge n measurement (mass/volume)Ordered By: Chente Conn on 07-22-2022 Urea nitrogen [Mass/Vol] 13 mg/dL 7-18 [facility] Thin prep Papanicolaou smear with manual screeningOrdered By: Chente Conn on 07-22-2022 Thin prep Papanicolaou smear with manual screening 7 5-15 [facility] CNPNon 06-30-2022 CNPN Telephone ([employer]) -------- KRISS MICHAEL ([id number]) 1980 M Date Time Provider Department 06/30/22 STOMA THERAPY [place] During your visit today, we recorded the following information about you: Amber Monreal RN 06/30/2022 3:53 PM Signed [phone] Pt's mother called. She would like to discuss pt's stoma prolapse. Chichi Fowler RN 06/30/2022 4:48 PM Signed WO nursing returned patient's mother Yue message regarding [...] e-mail. Mother will give order numbers to [facility]. Also recommended can apply stomahesive powder [...] [R50.9] 01/13/2013 (more content not included)... Normal [facility] Absolute lymphocyte countOrd ered By: Dr. De La Rosa on 06-22-2022 Lymphocytes Auto (Unsp spec) [#/Vol] 1.42 10*3/uL 0.83-4.51 [facility] Basophil percentageOrdered B y: Dr. De La Rosa on 06-22-2022 Basophil percentage 0-5 SEEN /hpf 0-5 [facility] Basophil percentage 82 mg/dL 74-106 [facility] Basophil percentage 7.2 g/dL 6.4-8.2 [facility] Basophil percentage 0.10 mg/dL 0.20-1.00 [facility] Basophil percentage 139 mmol/L 136-145 [facility] Basophil percentage 3.5 mmol/L 3.5-5.1 [facility] Basophil percentage 107 mmol/L 98-107 [facility] Basophil percentage 1.3 mmol/L 0.4-2.0 [facility] Basophils (Bld) [#/Vol] 6.6 10*3/uL 4.4-11.0 [facility] Basophils (Bld) [#/Vol] 4.5 10*3/uL 2.0-7.7 [facility] Basophils/100 WBC (Bld) 67.2 % 47-[address] [facility] Basophils/100 WBC (Bld) 2.4 % 0-[address] [facility] Basophils/100 WBC (Bld) 0.2 % 0-[address] [facility] Basophil percentageOrdered B y: Siddharth De La Rosa on 06-22-2022 Bilirubin [Mass/Vol] 0.10 mg/dL 0.20-1.00 [facility] Comment on above: For patients on eltr ombopag therapy, use of Dimension [place] TBIL is not recommended. Chloride [Moles/Vol] 107 mmol/L 98-107 [facility] Eosinophils/100 WBC (Bld) 2.4 % 0-5 [facility] Glucose [Mass/Vol] 82 mg/dL 74-106 [facility] Lactate [Moles/Vol] 1.3 mmol/L 0.4-2.0 [facility] Neutrophils (Bld) [#/Vol] 4.5 10*3/uL 2.0-7.7 [facility] Neutrophils/100 WBC (Bld) 67.2 % 47-70 [facility] Potassium [Moles/Vol] 3.5 mmol/L 3.5-5.1 [facility] Protein [Mass/Vol] 7.2 g/dL 6.4-8.2 [facility] Sodium [Moles/Vol] 139 mmol/L 136-145 [facility] WBC (Bld) [#/Vol] 6.6 10*3/uL 4.4-11.0 [facility] Bilirubin Test strip Ql (U)O rdered By: Dr. De La Rosa on 06-22-2022 Bilirubin Ql (U) Negative Negative [facility] Blood erythrocytes count (nu mber/volume)Ordered By: Dr. De La Rosa on 06-22-2022 RBC (Bld) [#/Vol] 4.21 10*6/uL 4.6-6.2 [facility] Blood hemoglobin measurement (mass/volume)Ordered By: Dr. De La Rosa on 06-22-2022 Hemoglobin (Bld) [Mass/Vol] 11.5 g/dL 13.0-16.5 [facility] Blood lymphocytes/100 leukoc ytesOrdered By: Dr. De La Rosa on 06-22-2022 Lymphocytes/100 WBC (Bld) 21.5 % 19-41 [facility] Blood monocytes/100 leukocyt esOrdered By: Dr. De La Rosa on 06-22-2022 Monocytes/100 WBC (Bld) 8.5 % 0-[address] [facility] Blood platelet mean volumeOr dered By: Dr. De La Rosa on 06-22-2022 Platelet mean volume (Bld) [Entitic vol] 10.0 fL 6.2-12.0 [facility] Culture, urineOrdered By: Daina De La Rosa on 06-22-2022 Bacteria identified Cx Nom (U) Culture exhibits no growth. [facility] Determination of erythrocyte mean corpuscular volume (MCV)Ordered By: Dr. De La Rosa on 06-22-2022 MCV (RBC) [Entitic vol] 86.7 fL 80-[address] [facility] Hematocrit Auto (Bld) [Volum e fraction]Ordered By: Dr. De La Rosa on 06-22-2022 Hematocrit (Bld) [Volume fraction] 36.5 % 40-54 [facility] INR in Blood by Coagulation assayOrdered By: Dr. De La Rosa on 06-22-2022 INR Coag (Bld) [Relative time] 1.0 {INR} [facility] Ketones Test strip Ql (U)Ord ered By: Dr. De La Rosa on 06-22-2022 Ketones Ql (U) 5 mg/dl Negative [facility] Laboratory - Chemistry and C hemistry - challengeOrdered By: Siddharth De La Rosa on 06-22-2022 ALP [Catalytic activity/Vol] 135 U/L 45-117 [facility] ALT [Catalytic activity/Vol] 19 U/L 16-61 [facility] CO2 [Moles/Vol] 25.0 mmol/L 21.0-32.0 [facility] Globulin (S) [Mass/Vol] 4.3 g/dL 2.2-4.[address] [facility] Urea nitrogen/Creatinine [Mass ratio] 48.6 mg/mg 10-20 [facility] - CoagulationOrde red By: Siddharth De La Rosa on 06-22-2022 aPTT Coag (Bld) [Time] 31.6 s 24.1-36.2 [facility] PT Coag (PPP) [Time] 13.0 s 11.7-14.9 [facility] - Hematology and Cell countsOrdered By: Siddharth De La Rosa on 06-22-2022 Erythrocyte distribution width (RBC) [Entitic vol] 45.2 fL 35.1-43.9 [facility] Erythrocyte distribution width (RBC) [Ratio] 14.3 % 11.6-14.6 [facility] Immature granulocytes/100 WBC (Bld) 0.200 % 0.0-0.9 [facility] Comment on above: IG% - Immature Granu locytes (promyelocytes, myelocytes and metamyelocytes) > 1% indicates that a LEFT SHIFT is Present. MCH (RBC) [Entitic mass] 27.3 pg 27.0-32.0 [facility] Nucleated RBC/100 WBC (Bld) [Ratio] 0 % 0-5 [facility] - Microbiology an d Antimicrobial susceptibilityOrdered By: Siddharth De La Rosa on 06-22-2022 Bacteria identified Cx Nom (Bld) No growth in 5 days. [facility] MCHC Auto (RBC) [Mass/Vol]Or dered By: Dr. De La Rosa on 06-22-2022 MCHC (RBC) [Mass/Vol] 31.5 g/dL 32-36 [facility] Mucus LM Ql (Urine sed)Order ed By: Dr. De La Rosa on 06-22-2022 Mucus Ql (Urine sed) 0 SEEN /hpf [facility] Nitrite Test strip Ql (U)Ord ered By: Dr. De La Rosa on 06-22-2022 Nitrite Ql (U) Negative Negative [facility] No Panel InformationOrdered By: Siddharth De La Rosa on 06-22-2022 Estimated Creatinine Clearance Calc 366.58 ml/min [facility] Estimated GFR (MDRD) Amer 383 mL/min >60 [facility] Comment on above: GFR Calc Estimated GFR (MDRD) Non-Af Amer 317 mL/min >60 [facility] Comment on above: Non- GFR Calc No Panel InformationOrdered By: Dr. De La Rosa on 06-22-2022 27.3 pg 27.0-32.0 [facility] 14.3 % 11.6-14.6 [facility] 45.2 fl 35.1-43.9 [facility] 0.200 % 0.0-0.9 [facility] 0 % 0-5 [facility] 13.0 SECONDS 11.7-14.9 [facility] 31.6 Seconds 24.1-36.2 [facility] 317 mL/min >60 [facility] 383 mL/min >60 [facility] 366.58 ml/min [facility] 48.6 RATIO 10-20 [facility] 4.3 g/dL 2.2-4.2 [facility] 135 U/L 45-117 [facility] 19 U/L 16-61 [facility] 25.0 mmol/L 21.0-32.0 [facility] Platelets bldOrdered By: Dr. De La Rosa on 06-22-2022 Platelets (Bld) [#/Vol] 202 10*3/uL 150-450 [facility] Protein Test strip Ql (U)Ord ered By: Dr. De La Rosa on 06-22-2022 Protein Ql (U) 30 mg/dl Negative [facility] Serum or plasma albumin jacinta urement (mass/volume)Ordered By: Dr. De La Rosa on 06-22-2022 Albumin [Mass/Vol] 2.9 g/dL 3.2-5.0 [facility] Serum or plasma albumin/glob ulin mass ratioOrdered By: Dr. De La Rosa on 06-22-2022 Albumin/Globulin [Mass ratio] 0.7 {ratio} 0.9-2.4 [facility] Serum or plasma calcium jacinta urement (mass/volume)Ordered By: Dr. De La Rosa on 06-22-2022 Calcium [Mass/Vol] 7.6 mg/dL 8.5-10.1 [facility] Serum or plasma creatinine m easurement (mass/volume)Ordered By: Dr. De La Rosa on 06-22-2022 Creatinine [Mass/Vol] 0.33 mg/dL 0.70-1.30 [facility] Comment on above: The validity of the calculated GFR & GFRAA in patients over 70 years has not been determined. Clinical correlation is essential. Serum or plasma urea nitroge n measurement (mass/volume)Ordered By: Dr. De La Rosa on 06-22-2022 Urea nitrogen [Mass/Vol] 16 mg/dL 7-18 [facility] Squamous epithelial cells de tection in urine sediment by light microscopyOrdered By: Dr. De La Rosa on 06-22-2022 Epithelial cells.squamous LM Ql (Urine sed) 0-5 SEEN /hpf 0-5 [facility] Thin prep Papanicolaou smear with manual screeningOrdered By: Dr. De La Rosa on 06-22-2022 Thin prep Papanicolaou smear with manual screening 16 U/L 15-37 [facility] Thin prep Papanicolaou smear with manual screening 7 5-15 [facility] Urine blood detectionOrdered By: Dr. De La Rosa on 06-22-2022 RBC Ql (U) Negative Negative [facility] RBC Ql (U) 0 SEEN /hpf 0-5 [facility] Urine clarityOrdered By: Dr. De La Rosa on 06-22-2022 Clarity (U) Sl Cldy Clear [facility] Urine color determinationOrd ered By: Dr. De La Rosa on 06-22-2022 Color (U) Yellow Yellow [facility] Urine glucose detectionOrder ed By: Dr. De La Rosa on 06-22-2022 Glucose Ql (U) Normal mg/dl Normal [facility] Urine leukocyte esterase det ection by dipstickOrdered By: Dr. De La Rosa on 06-22-2022 Leukocyte esterase Test strip Ql (U) 25 /ul Negative [facility] Urine pHOrdered By: Dr. Abdalla ne on 06-22-2022 pH (U) 8.0 [pH] 5.0 - 8.0 [facility] Urine sediment bacteria coun t by microscopy (number/high power field)Ordered By: Dr. De La Rosa on 06-22-2022 Bacteria LM.HPF (Urine sed) [#/Area] 0 /[HPF] None Seen [facility] Urine specific gravity measu rementOrdered By: Dr. De La Rosa on 06-22-2022 Specific gravity (U) [Rel density] 1.010 1.002-1.030 [facility] Urobilinogen Auto test strip Ql (U)Ordered By: Dr. De La Rosa on 06-22-2022 Urobilinogen Ql (U) Normal mg/dl Normal [facility] CNNURSEon 06-15-2022 [facility] Nurse Visit ([facility]) -------- KRISS MICHAEL ([id number]) 1980 Date Time Provider Department 06/15/22 2:00 PM STOMA THERAPY [facility] During your visit today, we recorded the following information about you: Cassie Cui RN 06/15/2022 3:50 [place] [address] Patient: Kriss Michael Patient Address: [address] [place] [address] [place] [address] Preferred Gender: male Date of : 1980 Type of Stoma: End Descending Colostomy Diagnosis: Constipation K59.0 OSTOMY SUPPLY ORDER FORM Coloplast SenSura Uriah MAXI Drainable Pouch with Soft Outlet Transparent Cut-to-fit 4 #[id number] 30 day use - 1 Box Coloplast Bed Drainage Bag #[id number] 30 day use-2 bags Clinical Documentation Manager #[id number] 30 day use 1 Guide Travel Tonia Hollihesive #0728 30 day use - 2 Boxes Procare Abdominal binder (62-74) #[id number] 30 day use - 2 Binders OR Procare Abdominal binder (45-62) #[id number] 30 day use - 2 Binders Refills: 11 Attending Physician: Dr. Leavitt For immediate authorization, please contact the physician?s office. [facility] Nurse: VALERIANO Peters, CWOCN Addendum by: VALERIANO Virgen, CWOCN SIGNATURE: Cassie Cui RN PATIENT NAME: Kriss Michael DATE: June 15, 2022 TIME: 3:34 PM CONTACT #: [phone] Cassie Cui RN 06/15/2022 6:05 PM Signed [...] Uriah MAXI Drainable pouch with soft outlet #[id number]. Order form provided. Also discussed use of [...] Assessed Primary Visit Diagnosis:Attentio n to colostomy ([facility], [facility]) [Z43.3] Prescriptions as of 06/30/2022 - baclofen [...] Inject intravenou (more content not included)... Normal [facility] Absolute lymphocyte countOrd ered By: Dr. Munoz on 06-12-2022 Lymphocytes Auto (Unsp spec) [#/Vol] 2.18 10*3/uL 0.83-4.51 [facility] Basophil percentageOrdered B y: Dr. Munoz on 06-12-2022 Basophil percentage 90 mg/dL 74-106 [facility] Basophil percentage 135 mmol/L 136-145 [facility] Basophil percentage 3.7 mmol/L 3.5-5.1 [facility] Basophil percentage 103 mmol/L 98-107 [facility] Basophils (Bld) [#/Vol] 6.1 10*3/uL 4.4-11.0 [facility] Basophils (Bld) [#/Vol] 3.1 10*3/uL 2.0-7.7 [facility] Basophils/100 WBC (Bld) 0.5 % 0-[address] [facility] Basophils/100 WBC (Bld) 50.9 % 47-[address] [facility] Basophils/100 WBC (Bld) 3.3 % 0-[address] [facility] Chloride [Moles/Vol] 103 mmol/L 98-107 [facility] Eosinophils/100 WBC (Bld) 3.3 % 0-5 [facility] Glucose [Mass/Vol] 90 mg/dL 74-106 [facility] Neutrophils (Bld) [#/Vol] 3.1 10*3/uL 2.0-7.7 [facility] Neutrophils/100 WBC (Bld) 50.9 % 47-70 [facility] Potassium [Moles/Vol] 3.7 mmol/L 3.5-5.1 [facility] Sodium [Moles/Vol] 135 mmol/L 136-145 [facility] WBC (Bld) [#/Vol] 6.1 10*3/uL 4.4-11.0 [facility] Blood erythrocytes count (nu mber/volume)Ordered By: Dr. Munoz on 06-12-2022 RBC (Bld) [#/Vol] 4.08 10*6/uL 4.6-6.2 [facility] Blood hemoglobin measurement (mass/volume)Ordered By: Dr. Munoz on 06-12-2022 Hemoglobin (Bld) [Mass/Vol] 11.2 g/dL 13.0-16.5 [facility] Blood lymphocytes/100 leukoc ytesOrdered By: Dr. Munoz on 06-12-2022 Lymphocytes/100 WBC (Bld) 35.9 % 19-41 [facility] Blood monocytes/100 leukocyt esOrdered By: Dr. Munoz on 06-12-2022 Monocytes/100 WBC (Bld) 8.1 % 0-[address] [facility] Blood platelet mean volumeOr dered By: Dr. Munoz on 06-12-2022 Platelet mean volume (Bld) [Entitic vol] 9.8 fL 6.2-12.0 [facility] Determination of erythrocyte mean corpuscular volume (MCV)Ordered By: Dr. Munoz on 06-12-2022 MCV (RBC) [Entitic vol] 85.0 fL 80-[address] [facility] Hematocrit Auto (Bld) [Volum e fraction]Ordered By: Dr. Munoz on 06-12-2022 Hematocrit (Bld) [Volume fraction] 34.7 % 40-54 [facility] Influenza virus A and B and SARS-CoV-2 (COVID-19) Ag panel - Upper respiratory specimOrdered By: Naveen Munoz on 06-12-2022 SARS-CoV-2 (COVID-19) RNA YAYO+probe Ql (Resp) [facility] Influenza virus A and B and SARS-CoV-2 (COVID-19) Ag panel - Upper respiratory specimOrdered By: Dr. Munoz on 06-12-2022 SARS-CoV-2 (COVID-19) RNA AYYO+probe Ql (Resp) [facility] Laboratory - Chemistry and C hemistry - challengeOrdered By: Dr. Munoz on 06-12-2022 CO2 [Moles/Vol] 28.0 mmol/L 21.0-32.0 [facility] Urea nitrogen/Creatinine [Mass ratio] 38.9 mg/mg 10-20 [facility] Laboratory - Hematology and Cell countsOrdered By: Dr. Munoz on 06-12-2022 Erythrocyte distribution width (RBC) [Entitic vol] 45.3 fL 35.1-43.9 [facility] Erythrocyte distribution width (RBC) [Ratio] 14.5 % 11.6-14.6 [facility] Immature granulocytes/100 WBC (Bld) 1.300 % 0.0-0.9 [facility] Comment on above: IG% - Immature Granu locytes (promyelocytes, myelocytes and metamyelocytes) > 1% indicates that a LEFT SHIFT is Present. MCH (RBC) [Entitic mass] 27.5 pg 27.0-32.0 [facility] Nucleated RBC/100 WBC (Bld) [Ratio] 0 % 0-5 [facility] MCHC Auto (RBC) [Mass/Vol]Or dered By: Dr. Munoz on 06-12-2022 MCHC (RBC) [Mass/Vol] 32.3 g/dL 32-36 [facility] No Panel InformationOrdered By: Dr. Munoz on 06-12-2022 Estimated Creatinine Clearance Calc 381.94 ml/min [facility] Estimated GFR (MDRD) Amer 456 mL/min >60 [facility] Comment on above: GFR Calc Estimated GFR (MDRD) Non-Af Amer 377 mL/min >60 [facility] Comment on above: Non- GFR Calc Troponin I High Sensitivity < 3 pg/mL 3.0-78.0 [facility] Comment on above: Please Note: New Suha t Units and Gender Specific Reference Ranges. For more information see Policy Stat Procedure [place] High Sensitivity Troponin (TNIH) and attachments. 27.5 pg 27.0-32.0 [facility] 14.5 % 11.6-14.6 [facility] 45.3 fl 35.1-43.9 [facility] 1.300 % 0.0-0.9 [facility] 0 % 0-5 [facility] 377 mL/min >60 [facility] 456 mL/min >60 [facility] 381.94 ml/min [facility] 38.9 RATIO 10-20 [facility] < 3 pg/mL 3.0-78.0 [facility] 28.0 mmol/L 21.0-32.0 [facility] Platelets bldOrdered By: Dr. Munoz on 06-12-2022 Platelets (Bld) [#/Vol] 199 10*3/uL 150-450 [facility] Serum or plasma calcium jacinta urement (mass/volume)Ordered By: Dr. Munoz on 06-12-2022 Calcium [Mass/Vol] 8.8 mg/dL 8.5-10.1 [facility] Serum or plasma creatinine m easurement (mass/volume)Ordered By: Dr. Munoz on 06-12-2022 Creatinine [Mass/Vol] 0.28 mg/dL 0.70-1.30 [facility] Comment on above: The validity of the calculated GFR & GFRAA in patients over 70 years has not been determined. Clinical correlation is essential. Serum or plasma urea nitroge n measurement (mass/volume)Ordered By: Dr. Munoz on 06-12-2022 Urea nitrogen [Mass/Vol] 11 mg/dL 7-18 [facility] Thin prep Papanicolaou smear with manual screeningOrdered By: Dr. Munoz on 06-12-2022 Thin prep Papanicolaou smear with manual screening 4 5-15 [facility] Absolute lymphocyte countOrd ered By: Dr. Waite on 06-01-2022 Lymphocytes Auto (Unsp spec) [#/Vol] 2.20 10*3/uL 0.83-4.51 [facility] Basophil percentageOrdered B y: Dr. Waite on 06-01-2022 Basophil percentage 100 mg/dL 74-106 [facility] Basophil percentage 140 mmol/L 136-145 [facility] Basophil percentage 3.6 mmol/L 3.5-5.1 [facility] Basophil percentage 105 mmol/L 98-107 [facility] Basophils (Bld) [#/Vol] 5.2 10*3/uL 4.4-11.0 [facility] Basophils (Bld) [#/Vol] 2.2 10*3/uL 2.0-7.7 [facility] Basophils/100 WBC (Bld) 0.4 % 0-[address] [facility] Basophils/100 WBC (Bld) 42.6 % 47-[address] [facility] Basophils/100 WBC (Bld) 4.6 % 0-[address] [facility] Chloride [Moles/Vol] 105 mmol/L 98-107 [facility] Eosinophils/100 WBC (Bld) 4.6 % 0-5 [facility] Glucose [Mass/Vol] 100 mg/dL 74-106 [facility] Comment on above: Fasting Glucose resu lt from 100 to 125 mg/dL suggests IMPAIRED HOMEOSTASIS per A.D.A. criteria. Neutrophils (Bld) [#/Vol] 2.2 10*3/uL 2.0-7.7 [facility] Neutrophils/100 WBC (Bld) 42.6 % 47-70 [facility] Potassium [Moles/Vol] 3.6 mmol/L 3.5-5.1 [facility] Sodium [Moles/Vol] 140 mmol/L 136-145 [facility] WBC (Bld) [#/Vol] 5.2 10*3/uL 4.4-11.0 [facility] Blood erythrocytes count (nu mber/volume)Ordered By: Dr. Waite on 06-01-2022 RBC (Bld) [#/Vol] 3.90 10*6/uL 4.6-6.2 [facility] Blood hemoglobin measurement (mass/volume)Ordered By: Dr. Waite on 06-01-2022 Hemoglobin (Bld) [Mass/Vol] 11.0 g/dL 13.0-16.5 [facility] Blood lymphocytes/100 leukoc ytesOrdered By: Dr. Waite on 06-01-2022 Lymphocytes/100 WBC (Bld) 42.5 % 19-41 [facility] Blood monocytes/100 leukocyt esOrdered By: Dr. Waite on 06-01-2022 Monocytes/100 WBC (Bld) 9.7 % 0-10 [facility] Blood platelet mean volumeOr dered By: Dr. Waite on 06-01-2022 Platelet mean volume (Bld) [Entitic vol] 10.1 fL 6.2-12.0 [facility] Determination of erythrocyte mean corpuscular volume (MCV)Ordered By: Dr. Waite on 06-01-2022 MCV (RBC) [Entitic vol] 86.4 fL 80-[address] [facility] Hematocrit Auto (Bld) [Volum e fraction]Ordered By: Dr. Waite on 06-01-2022 Hematocrit (Bld) [Volume fraction] 33.7 % 40-54 [facility] - Chemistry and C hemistry - challengeOrdered By: Dr. Waite on 06-01-2022 CO2 [Moles/Vol] 32.0 mmol/L 21.0-32.0 [facility] Urea nitrogen/Creatinine [Mass ratio] 46.0 mg/mg 10-20 [facility] - Hematology and Cell countsOrdered By: Dr. Waite on 06-01-2022 Erythrocyte distribution width (RBC) [Entitic vol] 46.1 fL 35.1-43.9 [facility] Erythrocyte distribution width (RBC) [Ratio] 14.7 % 11.6-14.6 [facility] Immature granulocytes/100 WBC (Bld) 0.200 % 0.0-0.9 [facility] Comment on above: IG% - Immature Granu locytes (promyelocytes, myelocytes and metamyelocytes) > 1% indicates that a LEFT SHIFT is Present. MCH (RBC) [Entitic mass] 28.2 pg 27.0-32.0 [facility] Nucleated RBC/100 WBC (Bld) [Ratio] 0 % 0-5 [facility] MCHC Auto (RBC) [Mass/Vol]Or dered By: Dr. Waite on 06-01-2022 MCHC (RBC) [Mass/Vol] 32.6 g/dL 32-36 [facility] No Panel InformationOrdered By: Dr. Waite on 06-01-2022 Estimated GFR (MDRD) Amer 501 mL/min >60 [facility] Comment on above: GFR Calc Estimated GFR (MDRD) Non-Af Amer 414 mL/min >60 [facility] Comment on above: Non- GFR Calc 28.2 pg 27.0-32.0 [facility] 14.7 % 11.6-14.6 [facility] 46.1 fl 35.1-43.9 [facility] 0.200 % 0.0-0.9 [facility] 0 % 0-5 [facility] 414 mL/min >60 [facility] 501 mL/min >60 [facility] 46.0 RATIO 10-20 [facility] 32.0 mmol/L 21.0-32.0 [facility] Platelets bldOrdered By: Dr. Waite on 06-01-2022 Platelets (Bld) [#/Vol] 183 10*3/uL 150-450 [facility] Serum or plasma calcium jacinta urement (mass/volume)Ordered By: Dr. Waite on 06-01-2022 Calcium [Mass/Vol] 8.8 mg/dL 8.5-10.1 [facility] Serum or plasma creatinine m easurement (mass/volume)Ordered By: Dr. Waite on 06-01-2022 Creatinine [Mass/Vol] 0.26 mg/dL 0.70-1.30 [facility] Comment on above: The validity of the calculated GFR & GFRAA in patients over 70 years has not been determined. Clinical correlation is essential. Serum or plasma urea nitroge n measurement (mass/volume)Ordered By: Dr. Waite on 06-01-2022 Urea nitrogen [Mass/Vol] 12 mg/dL 7-18 [facility] Thin prep Papanicolaou smear with manual screeningOrdered By: Dr. Waite on 06-01-2022 Thin prep Papanicolaou smear with manual screening 3 5-15 [facility] Absolute lymphocyte countOrd ered By: Dr. Conn on 05-04-2022 Lymphocytes Auto (Unsp spec) [#/Vol] 1.95 10*3/uL 0.83-4.51 [facility] Basophil percentageOrdered B y: Dr. Conn on 05-04-2022 Basophil percentage 21.8 ug/mL 10.0-40.0 [facility] Basophil percentage 102 mg/dL 74-106 [facility] Basophil percentage 141 mmol/L 136-145 [facility] Basophil percentage 3.5 mmol/L 3.5-5.1 [facility] Basophil percentage 106 mmol/L 98-107 [facility] Basophils (Bld) [#/Vol] 5.5 10*3/uL 4.4-11.0 [facility] Basophils (Bld) [#/Vol] 2.8 10*3/uL 2.0-7.7 [facility] Basophils/100 WBC (Bld) 0.2 % 0-[address] [facility] Basophils/100 WBC (Bld) 50.6 % 47-[address] [facility] Basophils/100 WBC (Bld) 3.7 % 0-5 [facility] Chloride [Moles/Vol] 106 mmol/L 98-107 [facility] Eosinophils/100 WBC (Bld) 3.7 % 0-5 [facility] Glucose [Mass/Vol] 102 mg/dL 74-106 [facility] Comment on above: Fasting Glucose resu lt from 100 to 125 mg/dL suggests IMPAIRED HOMEOSTASIS per A.D.A. criteria. Neutrophils (Bld) [#/Vol] 2.8 10*3/uL 2.0-7.7 [facility] Neutrophils/100 WBC (Bld) 50.6 % 47-70 [facility] Potassium [Moles/Vol] 3.5 mmol/L 3.5-5.1 [facility] Sodium [Moles/Vol] 141 mmol/L 136-145 [facility] WBC (Bld) [#/Vol] 5.5 10*3/uL 4.4-11.0 [facility] Blood erythrocytes count (nu mber/volume)Ordered By: Dr. Conn on 05-04-2022 RBC (Bld) [#/Vol] 4.00 10*6/uL 4.6-6.2 [facility] Blood hemoglobin measurement (mass/volume)Ordered By: Dr. Conn on 05-04-2022 Hemoglobin (Bld) [Mass/Vol] 11.3 g/dL 13.0-16.5 [facility] Blood lymphocytes/100 leukoc ytesOrdered By: Dr. Conn on 05-04-2022 Lymphocytes/100 WBC (Bld) 35.6 % 19-41 [facility] Blood monocytes/100 leukocyt esOrdered By: Dr. Conn on 05-04-2022 Monocytes/100 WBC (Bld) 9.7 % 0-10 [facility] Blood platelet mean volumeOr dered By: Dr. Conn on 05-04-2022 Platelet mean volume (Bld) [Entitic vol] 10.8 fL 6.2-12.0 [facility] Determination of erythrocyte mean corpuscular volume (MCV)Ordered By: Dr. Conn on 05-04-2022 MCV (RBC) [Entitic vol] 87.3 fL 80-[address] [facility] Hematocrit Auto (Bld) [Volum e fraction]Ordered By: Dr. Conn on 05-04-2022 Hematocrit (Bld) [Volume fraction] 34.9 % 40-54 [facility] Laboratory - Chemistry and C hemistry - challengeOrdered By: Dr. Conn on 05-04-2022 CO2 [Moles/Vol] 29.0 mmol/L 21.0-32.0 [facility] Urea nitrogen/Creatinine [Mass ratio] 62.5 mg/mg 10-20 [facility] - Hematology and Cell countsOrdered By: Dr. Conn on 05-04-2022 Erythrocyte distribution width (RBC) [Entitic vol] 46.2 fL 35.1-43.9 [facility] Erythrocyte distribution width (RBC) [Ratio] 14.4 % 11.6-14.6 [facility] Immature granulocytes/100 WBC (Bld) 0.200 % 0.0-0.9 [facility] Comment on above: IG% - Immature Granu locytes (promyelocytes, myelocytes and metamyelocytes) > 1% indicates that a LEFT SHIFT is Present. MCH (RBC) [Entitic mass] 28.3 pg 27.0-32.0 [facility] Nucleated RBC/100 WBC (Bld) [Ratio] 0 % 0-5 [facility] MCHC Auto (RBC) [Mass/Vol]Or dered By: Dr. Conn on 05-04-2022 MCHC (RBC) [Mass/Vol] 32.4 g/dL 32-36 [facility] No Panel InformationOrdered By: Dr. Conn on 05-04-2022 Estimated GFR (MDRD) Amer 478 mL/min >60 [facility] Comment on above: GFR Calc Estimated GFR (MDRD) Non-Af Amer 395 mL/min >60 [facility] Comment on above: Non- GFR Calc 28.3 pg 27.0-32.0 [facility] 14.4 % 11.6-14.6 [facility] 46.2 fl 35.1-43.9 [facility] 0.200 % 0.0-0.9 [facility] 0 % 0-5 [facility] 395 mL/min >60 [facility] 478 mL/min >60 [facility] 62.5 RATIO 10-20 [facility] 29.0 mmol/L 21.0-32.0 [facility] Platelets bldOrdered By: Dr. Conn on 05-04-2022 Platelets (Bld) [#/Vol] 180 10*3/uL 150-450 [facility] Serum or plasma calcium jacinta urement (mass/volume)Ordered By: Dr. Conn on 05-04-2022 Calcium [Mass/Vol] 8.6 mg/dL 8.5-10.1 [facility] Serum or plasma creatinine m easurement (mass/volume)Ordered By: Dr. Conn on 05-04-2022 Creatinine [Mass/Vol] 0.27 mg/dL 0.70-1.30 [facility] Comment on above: The validity of the calculated GFR & GFRAA in patients over 70 years has not been determined. Clinical correlation is essential. Serum or plasma transthyreti n measurement (mass/volume)Ordered By: Dr. Conn on 05-04-2022 Prealbumin [Mass/Vol] 24.1 mg/dL 20.0-40.0 [facility] Serum or plasma urea nitroge n measurement (mass/volume)Ordered By: Dr. Conn on 05-04-2022 Urea nitrogen [Mass/Vol] 17 mg/dL 7-18 [facility] Thin prep Papanicolaou smear with manual screeningOrdered By: Dr. Conn on 05-04-2022 Thin prep Papanicolaou smear with manual screening 6 5-15 [facility] CNPNon 04-14-2022 ISAMARN Telephone ([employer]) -------- KRISS MICHAEL ([id number]) 1980 M Date Time Provider Department 04/14/22 Yola LEAVITT During your visit today, we recorded the following information about you: Ebony Boateng 04/14/2022 12:39 PM Signed The patient had a Colostomy done by Dr leavitt. The patient 's mother (POA) States he is having issues with prolapse of colon, would like to see what could be done about this,. [phone] Ashly (mom) Geetha Walter RN 04/14/2022 1:40 [...] Fully Assessed Reason for Visit: Patient Update [2614] Patient Question [3957] Prescriptions as of 04/14/2022 - baclofen (LIORESAL) [...] infection [A4 (more content not included)... [facility] KRISS MICHAEL ([id number]) 1980 M Date Time Provider Department 04/14/22 Yola LEAVITT During your visit today, we recorded the following information about you: Ebony Boateng 04/14/2022 1:21 PM Signed The patients mom stated that she can get into [employer]. Allergies As of Date: 04/14/2022 Noted Allergy [...] p*04/05/2018 Aspiration (more content not included)... Normal [facility] Absolute lymphocyte countOrd ered By: Dr. Alexandre on 04-01-2022 Lymphocytes Auto (Unsp spec) [#/Vol] 2.64 10*3/uL 0.83-4.51 [facility] Basophil percentageOrdered B y: Dr. Alexandre on 04-01-2022 Basophil percentage 122 mg/dL 74-106 [facility] Basophil percentage 145 mmol/L 136-145 [facility] Basophil percentage 3.5 mmol/L 3.5-5.1 [facility] Basophil percentage 110 mmol/L 98-107 [facility] Basophils (Bld) [#/Vol] 6.6 10*3/uL 4.4-11.0 [facility] Basophils (Bld) [#/Vol] 3.1 10*3/uL 2.0-7.7 [facility] Basophils/100 WBC (Bld) 0.2 % 0-[address] [facility] Basophils/100 WBC (Bld) 46.7 % 47-[address] [facility] Basophils/100 WBC (Bld) 2.1 % 0-5 [facility] Chloride [Moles/Vol] 110 mmol/L 98-107 [facility] Eosinophils/100 WBC (Bld) 2.1 % 0-5 [facility] Glucose [Mass/Vol] 122 mg/dL 74-106 [facility] Comment on above: Fasting Glucose resu lt from 100 to 125 mg/dL suggests IMPAIRED HOMEOSTASIS per A.D.A. criteria. Neutrophils (Bld) [#/Vol] 3.1 10*3/uL 2.0-7.7 [facility] Neutrophils/100 WBC (Bld) 46.7 % 47-70 [facility] Potassium [Moles/Vol] 3.5 mmol/L 3.5-5.1 [facility] Sodium [Moles/Vol] 145 mmol/L 136-145 [facility] WBC (Bld) [#/Vol] 6.6 10*3/uL 4.4-11.0 [facility] Blood erythrocytes count (nu mber/volume)Ordered By: Dr. Alexandre on 04-01-2022 RBC (Bld) [#/Vol] 3.33 10*6/uL 4.6-6.2 [facility] Blood hemoglobin measurement (mass/volume)Ordered By: Dr. Alexandre on 04-01-2022 Hemoglobin (Bld) [Mass/Vol] 9.2 g/dL 13.0-16.5 [facility] Blood lymphocytes/100 leukoc ytesOrdered By: Dr. Alexandre on 04-01-2022 Lymphocytes/100 WBC (Bld) 39.9 % 19-41 [facility] Blood monocytes/100 leukocyt esOrdered By: Dr. Alexandre on 04-01-2022 Monocytes/100 WBC (Bld) 10.0 % 0-[address] [facility] Blood platelet mean volumeOr dered By: Dr. Alexandre on 04-01-2022 Platelet mean volume (Bld) [Entitic vol] 9.6 fL 6.2-12.0 [facility] Determination of erythrocyte mean corpuscular volume (MCV)Ordered By: Dr. Alexandre on 04-01-2022 MCV (RBC) [Entitic vol] 88.6 fL 80-[address] [facility] Hematocrit Auto (Bld) [Volum e fraction]Ordered By: Dr. Alexandre on 04-01-2022 Hematocrit (Bld) [Volume fraction] 29.5 % 40-54 [facility] - Chemistry and C hemistry - challengeOrdered By: Dr. Alexandre on 04-01-2022 CO2 [Moles/Vol] 29.0 mmol/L 21.0-32.0 [facility] Urea nitrogen/Creatinine [Mass ratio] 43.7 mg/mg 10-20 [facility] - Hematology and Cell countsOrdered By: Dr. Alexandre on 04-01-2022 Erythrocyte distribution width (RBC) [Entitic vol] 48.4 fL 35.1-43.9 [facility] Erythrocyte distribution width (RBC) [Ratio] 15.0 % 11.6-14.6 [facility] Immature granulocytes/100 WBC (Bld) 1.100 % 0.0-0.9 [facility] Comment on above: IG% - Immature Granu locytes (promyelocytes, myelocytes and metamyelocytes) > 1% indicates that a LEFT SHIFT is Present. MCH (RBC) [Entitic mass] 27.6 pg 27.0-32.0 [facility] Nucleated RBC/100 WBC (Bld) [Ratio] 0 % 0-5 [facility] MCHC Auto (RBC) [Mass/Vol]Or dered By: Dr. Alexandre on 04-01-2022 MCHC (RBC) [Mass/Vol] 31.2 g/dL 32-36 [facility] No Panel InformationOrdered By: Dr. Alexandre on 04-01-2022 Estimated Creatinine Clearance Calc 460.75 ml/min [facility] Estimated GFR (MDRD) Amer 583 mL/min >60 [facility] Comment on above: GFR Calc Estimated GFR (MDRD) Non-Af Amer 482 mL/min >60 [facility] Comment on above: Non- GFR Calc 27.6 pg 27.0-32.0 [facility] 15.0 % 11.6-14.6 [facility] 48.4 fl 35.1-43.9 [facility] 1.100 % 0.0-0.9 [facility] 0 % 0-5 [facility] 482 mL/min >60 [facility] 583 mL/min >60 [facility] 460.75 ml/min [facility] 43.7 RATIO 10-20 [facility] 29.0 mmol/L 21.0-32.0 [facility] Platelets bldOrdered By: Dr. Alexandre on 04-01-2022 Platelets (Bld) [#/Vol] 237 10*3/uL 150-450 [facility] Serum or plasma calcium jacinta urement (mass/volume)Ordered By: Dr. Alexandre on 04-01-2022 Calcium [Mass/Vol] 8.2 mg/dL 8.5-10.1 [facility] Serum or plasma creatinine m easurement (mass/volume)Ordered By: Dr. Alexandre on 04-01-2022 Creatinine [Mass/Vol] 0.23 mg/dL 0.70-1.30 [facility] Comment on above: The validity of the calculated GFR & GFRAA in patients over 70 years has not been determined. Clinical correlation is essential. Serum or plasma urea nitroge n measurement (mass/volume)Ordered By: Dr. Alexandre on 04-01-2022 Urea nitrogen [Mass/Vol] 10 mg/dL 7-18 [facility] Thin prep Papanicolaou smear with manual screeningOrdered By: Dr. Alexandre on 04-01-2022 Thin prep Papanicolaou smear with manual screening 6 5-15 [facility] Basophil percentageOrdered B y: Dr. Dillard on 03-30-2022 Basophil percentage 7.2 g/dL 6.4-8.2 [facility] Basophil percentage 0.20 mg/dL 0.20-1.00 [facility] Bilirubin [Mass/Vol] 0.20 mg/dL 0.20-1.00 [facility] Comment on above: For patients on eltr ombopag therapy, use of Dimension [place] TBIL is not recommended. Protein [Mass/Vol] 7.2 g/dL 6.4-8.2 [facility] Laboratory - Chemistry and C hemistry - challengeOrdered By: Dr. Dillard on 03-30-2022 ALP [Catalytic activity/Vol] 79 U/L [facility] ALT [Catalytic activity/Vol] 19 U/L [facility] Globulin (S) [Mass/Vol] 4.5 g/dL 2.2-4.[address] [facility] Laboratory - Microbiology an d Antimicrobial susceptibilityOrdered By: Dr. De La Torre on 03-30-2022 Bacteria identified Cx Nom (Bld) No growth in 5 days. [facility] No Panel InformationOrdered By: Dr. Dillard on 03-30-2022 4.5 g/dL 2.2-4.2 [facility] 79 U/L [facility] 19 U/L [facility] No Panel InformationOrdered By: Dr. De La Torre on 03-30-2022 No growth in 5 days. [facility] Serum or plasma albumin jacinta urement (mass/volume)Ordered By: Dr. Dillard on 03-30-2022 Albumin [Mass/Vol] 2.7 g/dL 3.2-5.0 [facility] Serum or plasma albumin/glob ulin mass ratioOrdered By: Dr. Dillard on 03-30-2022 Albumin/Globulin [Mass ratio] 0.6 {ratio} 0.9-2.4 [facility] Thin prep Papanicolaou smear with manual screeningOrdered By: Dr. Dillard on 03-30-2022 Thin prep Papanicolaou smear with manual screening 9 U/L 15-37 [facility] Bacteria identified Respirat ory culture Nom (Unsp spec)Ordered By: Dr. De La Torre on 03-27-2022 Respiratory Culture Proteus mirabilis [facility] Respiratory Culture Streptococcus agalactiae (B) [facility] Microbial respiratory culture Proteus mirabilis [facility] Microbial respiratory culture Streptococcus agalactiae (B) [facility] Basophil percentageOrdered B y: Dr. Dillard on 03-25-2022 Basophil percentage 0.7 mmol/L 0.4-2.0 [facility] Lactate [Moles/Vol] 0.7 mmol/L 0.4-2.0 [facility] Gram stain for investigation of transfusion reactionOrdered By: Dr. De La Torre on 03-25-2022 Microscopic observation Gram stain Nom (Unsp spec) [facility] - Microbiology an d Antimicrobial susceptibilityOrdered By: Dr. Echavarria on 03-25-2022 Respiratory pathogens DNA and RNA 12b panel YAYO+probe (Unsp spec) [facility] Absolute lymphocyte countOrd ered By: Dr. De La Torre on 03-24-2022 Lymphocytes Auto (Unsp spec) [#/Vol] 0.99 10*3/uL 0.83-4.51 [facility] Basophil percentageOrdered B y: Dr. De La Torre on 03-24-2022 Basophil percentage 2.9 mmol/L 0.4-2.0 [facility] Basophil percentage 0-5 SEEN /hpf 0-5 [facility] Basophil percentage 145 mg/dL 74-106 [facility] Basophil percentage 133 mmol/L 136-145 [facility] Basophil percentage 3.8 mmol/L 3.5-5.1 [facility] Basophil percentage 99 mmol/L 98-107 [facility] Basophils (Bld) [#/Vol] 7.5 10*3/uL 4.4-11.0 [facility] Basophils (Bld) [#/Vol] 6.0 10*3/uL 2.0-7.7 [facility] Basophils/100 WBC (Bld) 0.3 % 0-[address] [facility] Basophils/100 WBC (Bld) 79.9 % 47-[address] [facility] Basophils/100 WBC (Bld) 1.3 % 0-[address] [facility] Chloride [Moles/Vol] 99 mmol/L 98-107 [facility] Eosinophils/100 WBC (Bld) 1.3 % 0-5 [facility] Glucose [Mass/Vol] 145 mg/dL 74-106 [facility] Comment on above: Fasting Glucose resu lt greater than or equal to 126 mg/dL suggests DIABETES MELLITUS per A.D.A. criteria. Lactate [Moles/Vol] 2.7 mmol/L 0.4-2.0 [facility] Comment on above: Critical Result(s) C alled at: 18:44:06 03/24/2022 by: MARIBEL SEARS TO [place]. Results read back by same. Neutrophils (Bld) [#/Vol] 6.0 10*3/uL 2.0-7.7 [facility] Neutrophils/100 WBC (Bld) 79.9 % 47-70 [facility] Potassium [Moles/Vol] 3.8 mmol/L 3.5-5.1 [facility] Sodium [Moles/Vol] 133 mmol/L 136-145 [facility] WBC (Bld) [#/Vol] 7.5 10*3/uL 4.4-11.0 [facility] Basophil percentageOrdered B y: Dr. Echavarria on 03-24-2022 Basophil percentage 8.3 g/dL 6.4-8.2 [facility] Basophil percentage 0.30 mg/dL 0.20-1.00 [facility] Bilirubin Test strip Ql (U)O rdered By: Dr. De La Torre on 03-24-2022 Bilirubin Ql (U) Negative Negative [facility] Blood erythrocytes count (nu mber/volume)Ordered By: Dr. De La Torre on 03-24-2022 RBC (Bld) [#/Vol] 4.25 10*6/uL 4.6-6.2 [facility] Blood hemoglobin measurement (mass/volume)Ordered By: Dr. De La Torre on 03-24-2022 Hemoglobin (Bld) [Mass/Vol] 11.5 g/dL 13.0-16.5 [facility] Blood lymphocytes/100 leukoc ytesOrdered By: Dr. De La Torre on 03-24-2022 Lymphocytes/100 WBC (Bld) 13.1 % 19-41 [facility] Blood monocytes/100 leukocyt esOrdered By: Dr. De La Torre on 03-24-2022 Monocytes/100 WBC (Bld) 5.3 % 0-[address] [facility] Blood platelet mean volumeOr dered By: Dr. De La Torre on 03-24-2022 Platelet mean volume (Bld) [Entitic vol] 10.4 fL 6.2-12.0 [facility] Determination of erythrocyte mean corpuscular volume (MCV)Ordered By: Dr. De La Torre on 03-24-2022 MCV (RBC) [Entitic vol] 85.4 fL 80-[address] [facility] Direct bilirubinOrdered By: Dr. Echavarria on 03-24-2022 Bilirubin.direct [Mass/Vol] 0.07 mg/dL 0.00-0.30 [facility] Hematocrit Auto (Bld) [Volum e fraction]Ordered By: Dr. De La Torre on 03-24-2022 Hematocrit (Bld) [Volume fraction] 36.3 % 40-54 [facility] Influenza virus A and B and SARS-CoV-2 (COVID-19) Ag panel - Upper respiratory specimOrdered By: Dr. De La Torre on 03-24-2022 SARS-CoV-2 (COVID-19) RNA YAYO+probe Ql (Resp) [facility] Ketones Test strip Ql (U)Ord ered By: Dr. De La Torre on 03-24-2022 Ketones Ql (U) 15 mg/dl Negative [facility] Laboratory - Chemistry and C hemistry - challengeOrdered By: Dr. De La Torre on 03-24-2022 CO2 [Moles/Vol] 23.0 mmol/L 21.0-32.0 [facility] Urea nitrogen/Creatinine [Mass ratio] 22.2 mg/mg 10-20 [facility] - Hematology and Cell countsOrdered By: Dr. De La Torre on 03-24-2022 Erythrocyte distribution width (RBC) [Entitic vol] 43.3 fL 35.1-43.9 [facility] Erythrocyte distribution width (RBC) [Ratio] 14.0 % 11.6-14.6 [facility] Immature granulocytes/100 WBC (Bld) 0.100 % 0.0-0.9 [facility] Comment on above: IG% - Immature Granu locytes (promyelocytes, myelocytes and metamyelocytes) > 1% indicates that a LEFT SHIFT is Present. MCH (RBC) [Entitic mass] 27.1 pg 27.0-32.0 [facility] Nucleated RBC/100 WBC (Bld) [Ratio] 0 % 0-5 [facility] MCHC Auto (RBC) [Mass/Vol]Or dered By: Dr. De La Torre on 03-24-2022 MCHC (RBC) [Mass/Vol] 31.7 g/dL 32-36 [facility] Mucus LM Ql (Urine sed)Order ed By: Dr. De La Torre on 03-24-2022 Mucus Ql (Urine sed) 0 SEEN /hpf [facility] Nitrite Test strip Ql (U)Ord ered By: Dr. De La Torre on 03-24-2022 Nitrite Ql (U) Negative Negative [facility] No Panel InformationOrdered By: Dr. De La Torre on 03-24-2022 Estimated Creatinine Clearance Calc 154.32 ml/min [facility] Estimated GFR (MDRD) Amer 267 mL/min >60 [facility] Comment on above: GFR Calc Estimated GFR (MDRD) Non-Af Amer 220 mL/min >60 [facility] Comment on above: Non- GFR Calc 27.1 pg 27.0-32.0 [facility] 14.0 % 11.6-14.6 [facility] 43.3 fl 35.1-43.9 [facility] 0.100 % 0.0-0.9 [facility] 0 % 0-5 [facility] 220 mL/min >60 [facility] 267 mL/min >60 [facility] 154.32 ml/min [facility] 22.2 RATIO 10-20 [facility] 23.0 mmol/L 21.0-32.0 [facility] No Panel InformationOrdered By: Dr. Echavarria on 03-24-2022 4.9 g/dL 2.2-4.2 [facility] 137 U/L 45-117 [facility] 20 U/L 16-61 [facility] Platelets bldOrdered By: Dr. De La Torre on 03-24-2022 Platelets (Bld) [#/Vol] 141 10*3/uL 150-450 [facility] Protein Test strip Ql (U)Ord ered By: Dr. De La Torre on 03-24-2022 Protein Ql (U) 30 mg/dl Negative [facility] Serum or plasma albumin jacinta urement (mass/volume)Ordered By: Dr. Echavarria on 03-24-2022 Albumin [Mass/Vol] 3.4 g/dL 3.2-5.0 [facility] Serum or plasma calcium jacinta urement (mass/volume)Ordered By: Dr. De La Torre on 03-24-2022 Calcium [Mass/Vol] 8.6 mg/dL 8.5-10.1 [facility] Serum or plasma creatinine m easurement (mass/volume)Ordered By: Dr. De La Torre on 03-24-2022 Creatinine [Mass/Vol] 0.45 mg/dL 0.70-1.30 [facility] Comment on above: The validity of the calculated GFR & GFRAA in patients over 70 years has not been determined. Clinical correlation is essential. Serum or plasma urea nitroge n measurement (mass/volume)Ordered By: Dr. De La Torre on 03-24-2022 Urea nitrogen [Mass/Vol] 10 mg/dL 7-18 [facility] Squamous epithelial cells de tection in urine sediment by light microscopyOrdered By: Dr. De La Torre on 03-24-2022 Epithelial cells.squamous LM Ql (Urine sed) 0 SEEN /hpf 0-5 [facility] Thin prep Papanicolaou smear with manual screeningOrdered By: Dr. De La Torre on 03-24-2022 Thin prep Papanicolaou smear with manual screening 11 5-15 [facility] Thin prep Papanicolaou smear with manual screeningOrdered By: Dr. Echavarria on 03-24-2022 Thin prep Papanicolaou smear with manual screening 22 U/L 15-37 [facility] Urine blood detectionOrdered By: Dr. De La Torre on 03-24-2022 RBC Ql (U) 10 /ul Negative [facility] RBC Ql (U) 0-5 SEEN /hpf 0-5 [facility] Urine clarityOrdered By: Dr. De La Torre on 03-24-2022 Clarity (U) Clear Clear [facility] Urine color determinationOrd ered By: Dr. De La Torre on 03-24-2022 Color (U) Yellow Yellow [facility] Urine glucose detectionOrder ed By: Dr. De La Torre on 03-24-2022 Glucose Ql (U) Normal mg/dl Normal [facility] Urine leukocyte esterase det ection by dipstickOrdered By: Dr. De La Torre on 03-24-2022 Leukocyte esterase Test strip Ql (U) 25 /ul Negative [facility] Urine pHOrdered By: Dr. Walter hidalgo on 03-24-2022 pH (U) 7.0 [pH] 5.0 - 8.0 [facility] Urine sediment bacteria coun t by microscopy (number/high power field)Ordered By: Dr. De La Torre on 03-24-2022 Bacteria LM.HPF (Urine sed) [#/Area] 0 /[HPF] None Seen [facility] Urine specific gravity measu rementOrdered By: Dr. De La Torre on 03-24-2022 Specific gravity (U) [Rel density] 1.005 1.002-1.030 [facility] Urobilinogen Auto test strip Ql (U)Ordered By: Dr. De La Torre on 03-24-2022 Urobilinogen Ql (U) Normal mg/dl Normal [facility] Absolute lymphocyte countOrd ered By: Dr. Waite on 03-23-2022 Lymphocytes Auto (Unsp spec) [#/Vol] 1.82 10*3/uL 0.83-4.51 [facility] Basophil percentageOrdered B y: Dr. Waite on 03-23-2022 Basophil percentage 104 mg/dL 74-106 [facility] Basophil percentage 139 mmol/L 136-145 [facility] Basophil percentage 3.8 mmol/L 3.5-5.1 [facility] Basophil percentage 104 mmol/L 98-107 [facility] Basophils (Bld) [#/Vol] 6.6 10*3/uL 4.4-11.0 [facility] Basophils (Bld) [#/Vol] 3.9 10*3/uL 2.0-7.7 [facility] Basophils/100 WBC (Bld) 0.2 % 0-[address] [facility] Basophils/100 WBC (Bld) 59.9 % 47-[address] [facility] Basophils/100 WBC (Bld) 3.8 % 0-[address] [facility] Chloride [Moles/Vol] 104 mmol/L 98-107 [facility] Eosinophils/100 WBC (Bld) 3.8 % 0-5 [facility] Glucose [Mass/Vol] 104 mg/dL 74-106 [facility] Comment on above: Fasting Glucose resu lt from 100 to 125 mg/dL suggests IMPAIRED HOMEOSTASIS per A.D.A. criteria. Neutrophils (Bld) [#/Vol] 3.9 10*3/uL 2.0-7.7 [facility] Neutrophils/100 WBC (Bld) 59.9 % 47-70 [facility] Potassium [Moles/Vol] 3.8 mmol/L 3.5-5.1 [facility] Sodium [Moles/Vol] 139 mmol/L 136-145 [facility] WBC (Bld) [#/Vol] 6.6 10*3/uL 4.4-11.0 [facility] Blood erythrocytes count (nu mber/volume)Ordered By: Dr. Waite on 03-23-2022 RBC (Bld) [#/Vol] 4.00 10*6/uL 4.6-6.2 [facility] Blood hemoglobin measurement (mass/volume)Ordered By: Dr. Waite on 03-23-2022 Hemoglobin (Bld) [Mass/Vol] 10.8 g/dL 13.0-16.5 [facility] Blood lymphocytes/100 leukoc ytesOrdered By: Dr. Waite on 03-23-2022 Lymphocytes/100 WBC (Bld) 27.7 % 19-41 [facility] Blood monocytes/100 leukocyt esOrdered By: Dr. Waite on 03-23-2022 Monocytes/100 WBC (Bld) 7.9 % 0-[address] [facility] Blood platelet mean volumeOr dered By: Dr. Waite on 03-23-2022 Platelet mean volume (Bld) [Entitic vol] 10.2 fL 6.2-12.0 [facility] Determination of erythrocyte mean corpuscular volume (MCV)Ordered By: Dr. Waite on 03-23-2022 MCV (RBC) [Entitic vol] 86.0 fL 80-[address] [facility] Hematocrit Auto (Bld) [Volum e fraction]Ordered By: Dr. Waite on 03-23-2022 Hematocrit (Bld) [Volume fraction] 34.4 % 40-54 [facility] - Chemistry and C hemistry - challengeOrdered By: Dr. Waite on 03-23-2022 CO2 [Moles/Vol] 31.0 mmol/L 21.0-32.0 [facility] Urea nitrogen/Creatinine [Mass ratio] 60.0 mg/mg 10-20 [facility] - Hematology and Cell countsOrdered By: Dr. Waite on 03-23-2022 Erythrocyte distribution width (RBC) [Entitic vol] 43.8 fL 35.1-43.9 [facility] Erythrocyte distribution width (RBC) [Ratio] 13.9 % 11.6-14.6 [facility] Immature granulocytes/100 WBC (Bld) 0.500 % 0.0-0.9 [facility] Comment on above: IG% - Immature Granu locytes (promyelocytes, myelocytes and metamyelocytes) > 1% indicates that a LEFT SHIFT is Present. MCH (RBC) [Entitic mass] 27.0 pg 27.0-32.0 [facility] Nucleated RBC/100 WBC (Bld) [Ratio] 0 % 0-5 [facility] MCHC Auto (RBC) [Mass/Vol]Or dered By: Dr. Waite on 03-23-2022 MCHC (RBC) [Mass/Vol] 31.4 g/dL 32-36 [facility] No Panel InformationOrdered By: Dr. Waite on 03-23-2022 Estimated GFR (MDRD) Amer 527 mL/min >60 [facility] Comment on above: GFR Calc Estimated GFR (MDRD) Non-Af Amer 435 mL/min >60 [facility] Comment on above: Non- GFR Calc 27.0 pg 27.0-32.0 [facility] 13.9 % 11.6-14.6 [facility] 43.8 fl 35.1-43.9 [facility] 0.500 % 0.0-0.9 [facility] 0 % 0-5 [facility] 435 mL/min >60 [facility] 527 mL/min >60 [facility] 60.0 RATIO 10-20 [facility] 31.0 mmol/L 21.0-32.0 [facility] Platelets bldOrdered By: Dr. Waite on 03-23-2022 Platelets (Bld) [#/Vol] 169 10*3/uL 150-450 [facility] Serum or plasma calcium jacinta urement (mass/volume)Ordered By: Dr. Waite on 03-23-2022 Calcium [Mass/Vol] 8.3 mg/dL 8.5-10.1 [facility] Serum or plasma creatinine m easurement (mass/volume)Ordered By: Dr. Waite on 03-23-2022 Creatinine [Mass/Vol] 0.25 mg/dL 0.70-1.30 [facility] Comment on above: The validity of the calculated GFR & GFRAA in patients over 70 years has not been determined. Clinical correlation is essential. Serum or plasma urea nitroge n measurement (mass/volume)Ordered By: Dr. Waite on 03-23-2022 Urea nitrogen [Mass/Vol] 15 mg/dL 7-18 [facility] Thin prep Papanicolaou smear with manual screeningOrdered By: Dr. Waite on 03-23-2022 Thin prep Papanicolaou smear with manual screening 4 5-15 [facility] Absolute lymphocyte countOrd ered By: Dr. De La Torre on 02-24-2022 Lymphocytes Auto (Unsp spec) [#/Vol] 2.18 10*3/uL 0.83-4.51 [facility] Basophil percentageOrdered B y: Dr. De La Torre on 02-24-2022 Basophil percentage 110 mg/dL 74-106 [facility] Basophil percentage 8.8 g/dL 6.4-8.2 [facility] Basophil percentage 0.20 mg/dL 0.20-1.00 [facility] Basophil percentage 135 mmol/L 136-145 [facility] Basophil percentage 4.2 mmol/L 3.5-5.1 [facility] Basophil percentage 102 mmol/L 98-107 [facility] Basophils (Bld) [#/Vol] 7.9 10*3/uL 4.4-11.0 [facility] Basophils (Bld) [#/Vol] 4.6 10*3/uL 2.0-7.7 [facility] Basophils/100 WBC (Bld) 0.3 % 0-[address] [facility] Basophils/100 WBC (Bld) 58.7 % 47-[address] [facility] Basophils/100 WBC (Bld) 4.4 % 0-[address] [facility] Bilirubin [Mass/Vol] 0.20 mg/dL 0.20-1.00 [facility] Comment on above: For patients on eltr ombopag therapy, use of Dimension [place] TBIL is not recommended. Chloride [Moles/Vol] 102 mmol/L 98-107 [facility] Eosinophils/100 WBC (Bld) 4.4 % 0-5 [facility] Glucose [Mass/Vol] 110 mg/dL 74-106 [facility] Comment on above: Fasting Glucose resu lt from 100 to 125 mg/dL suggests IMPAIRED HOMEOSTASIS per A.D.A. criteria. Neutrophils (Bld) [#/Vol] 4.6 10*3/uL 2.0-7.7 [facility] Neutrophils/100 WBC (Bld) 58.7 % 47-70 [facility] Potassium [Moles/Vol] 4.2 mmol/L 3.5-5.1 [facility] Protein [Mass/Vol] 8.8 g/dL 6.4-8.2 [facility] Sodium [Moles/Vol] 135 mmol/L 136-145 [facility] WBC (Bld) [#/Vol] 7.9 10*3/uL 4.4-11.0 [facility] Blood erythrocytes count (nu mber/volume)Ordered By: Dr. De La Torre on 02-24-2022 RBC (Bld) [#/Vol] 4.41 10*6/uL 4.6-6.2 [facility] Blood hemoglobin measurement (mass/volume)Ordered By: Dr. De La Torre on 02-24-2022 Hemoglobin (Bld) [Mass/Vol] 12.1 g/dL 13.0-16.5 [facility] Blood lymphocytes/100 leukoc ytesOrdered By: Dr. De La Torre on 02-24-2022 Lymphocytes/100 WBC (Bld) 27.6 % 19-41 [facility] Blood monocytes/100 leukocyt esOrdered By: Dr. De La Torre on 02-24-2022 Monocytes/100 WBC (Bld) 8.7 % 0-[address] [facility] Blood platelet mean volumeOr dered By: Dr. De La Torre on 02-24-2022 Platelet mean volume (Bld) [Entitic vol] 9.7 fL 6.2-12.0 [facility] Determination of erythrocyte mean corpuscular volume (MCV)Ordered By: Dr. De La Torre on 02-24-2022 MCV (RBC) [Entitic vol] 85.0 fL 80-[address] [facility] Hematocrit Auto (Bld) [Volum e fraction]Ordered By: Dr. De La Torre on 02-24-2022 Hematocrit (Bld) [Volume fraction] 37.5 % 40-54 [facility] - Chemistry and C hemistry - challengeOrdered By: Dr. De La Torre on 02-24-2022 ALP [Catalytic activity/Vol] 162 U/L 45-117 [facility] ALT [Catalytic activity/Vol] 23 U/L 16-61 [facility] CO2 [Moles/Vol] 26.0 mmol/L 21.0-32.0 [facility] Globulin (S) [Mass/Vol] 5.4 g/dL 2.2-4.2 [facility] Urea nitrogen/Creatinine [Mass ratio] 34.3 mg/mg 10-20 [facility] - Hematology and Cell countsOrdered By: Dr. De La Torre on 02-24-2022 Erythrocyte distribution width (RBC) [Entitic vol] 41.9 fL 35.1-43.9 [facility] Erythrocyte distribution width (RBC) [Ratio] 13.4 % 11.6-14.6 [facility] Immature granulocytes/100 WBC (Bld) 0.300 % 0.0-0.9 [facility] Comment on above: IG% - Immature Granu locytes (promyelocytes, myelocytes and metamyelocytes) > 1% indicates that a LEFT SHIFT is Present. MCH (RBC) [Entitic mass] 27.4 pg 27.0-32.0 [facility] Nucleated RBC/100 WBC (Bld) [Ratio] 0 % 0-5 [facility] MCHC Auto (RBC) [Mass/Vol]Or dered By: Dr. De La Torre on 02-24-2022 MCHC (RBC) [Mass/Vol] 32.3 g/dL 32-36 [facility] No Panel InformationOrdered By: Dr. De La Torre on 02-24-2022 Estimated Creatinine Clearance Calc 169.38 ml/min [facility] Estimated GFR (MDRD) Amer 299 mL/min >60 [facility] Comment on above: GFR Calc Estimated GFR (MDRD) Non-Af Amer 247 mL/min >60 [facility] Comment on above: Non- GFR Calc 27.4 pg 27.0-32.0 [facility] 13.4 % 11.6-14.6 [facility] 41.9 fl 35.1-43.9 [facility] 0.300 % 0.0-0.9 [facility] 0 % 0-5 [facility] 247 mL/min >60 [facility] 299 mL/min >60 [facility] 169.38 ml/min [facility] 34.3 RATIO 10-20 [facility] 5.4 g/dL 2.2-4.2 [facility] 162 U/L 45-117 [facility] 23 U/L 16-61 [facility] 26.0 mmol/L 21.0-32.0 [facility] Platelets bldOrdered By: Dr. De La Torre on 02-24-2022 Platelets (Bld) [#/Vol] 210 10*3/uL 150-450 [facility] Serum or plasma albumin jacinta urement (mass/volume)Ordered By: Dr. De La Torre on 02-24-2022 Albumin [Mass/Vol] 3.4 g/dL 3.2-5.0 [facility] Serum or plasma albumin/glob ulin mass ratioOrdered By: Dr. De La Torre on 02-24-2022 Albumin/Globulin [Mass ratio] 0.6 {ratio} 0.9-2.4 [facility] Serum or plasma calcium jacinta urement (mass/volume)Ordered By: Dr. De La Torre on 02-24-2022 Calcium [Mass/Vol] 9.0 mg/dL 8.5-10.1 [facility] Serum or plasma creatinine m easurement (mass/volume)Ordered By: Dr. De La Torre on 02-24-2022 Creatinine [Mass/Vol] 0.41 mg/dL 0.70-1.30 [facility] Comment on above: The validity of the calculated GFR & GFRAA in patients over 70 years has not been determined. Clinical correlation is essential. Serum or plasma urea nitroge n measurement (mass/volume)Ordered By: Dr. De La Torre on 02-24-2022 Urea nitrogen [Mass/Vol] 14 mg/dL 7-18 [facility] Thin prep Papanicolaou smear with manual screeningOrdered By: Dr. De La Torre on 02-24-2022 Thin prep Papanicolaou smear with manual screening 11 U/L 15-37 [facility] Thin prep Papanicolaou smear with manual screening 7 5-15 [facility] Absolute lymphocyte countOrd ered By: Dr. Waite on 02-06-2022 Lymphocytes Auto (Unsp spec) [#/Vol] 1.84 10*3/uL 0.83-4.51 [facility] Basophil percentageOrdered B y: Dr. Waite on 02-06-2022 Basophil percentage 113 mg/dL 74-106 [facility] Basophil percentage 138 mmol/L 136-145 [facility] Basophil percentage 3.8 mmol/L 3.5-5.1 [facility] Basophil percentage 103 mmol/L 98-107 [facility] Basophils (Bld) [#/Vol] 7.8 10*3/uL 4.4-11.0 [facility] Basophils (Bld) [#/Vol] 5.1 10*3/uL 2.0-7.7 [facility] Basophils/100 WBC (Bld) 0.1 % 0-[address] [facility] Basophils/100 WBC (Bld) 65.4 % 47-[address] [facility] Basophils/100 WBC (Bld) 4.0 % 0-[address] [facility] Chloride [Moles/Vol] 103 mmol/L 98-107 [facility] Eosinophils/100 WBC (Bld) 4.0 % 0-5 [facility] Glucose [Mass/Vol] 113 mg/dL 74-106 [facility] Comment on above: Fasting Glucose resu lt from 100 to 125 mg/dL suggests IMPAIRED HOMEOSTASIS per A.D.A. criteria. Neutrophils (Bld) [#/Vol] 5.1 10*3/uL 2.0-7.7 [facility] Neutrophils/100 WBC (Bld) 65.4 % 47-70 [facility] Potassium [Moles/Vol] 3.8 mmol/L 3.5-5.1 [facility] Sodium [Moles/Vol] 138 mmol/L 136-145 [facility] WBC (Bld) [#/Vol] 7.8 10*3/uL 4.4-11.0 [facility] Blood erythrocytes count (nu mber/volume)Ordered By: Dr. Waite on 02-06-2022 RBC (Bld) [#/Vol] 4.00 10*6/uL 4.6-6.2 [facility] Blood hemoglobin measurement (mass/volume)Ordered By: Dr. Waite on 02-06-2022 Hemoglobin (Bld) [Mass/Vol] 11.5 g/dL 13.0-16.5 [facility] Blood lymphocytes/100 leukoc ytesOrdered By: Dr. Waite on 02-06-2022 Lymphocytes/100 WBC (Bld) 23.5 % 19-41 [facility] Blood monocytes/100 leukocyt esOrdered By: Dr. Waite on 02-06-2022 Monocytes/100 WBC (Bld) 6.9 % 0-10 [facility] Blood platelet mean volumeOr dered By: Dr. Waite on 02-06-2022 Platelet mean volume (Bld) [Entitic vol] 9.8 fL 6.2-12.0 [facility] Determination of erythrocyte mean corpuscular volume (MCV)Ordered By: Dr. Waite on 02-06-2022 MCV (RBC) [Entitic vol] 86.0 fL 80-[address] [facility] Hematocrit Auto (Bld) [Volum e fraction]Ordered By: Dr. Waite on 02-06-2022 Hematocrit (Bld) [Volume fraction] 34.4 % 40-54 [facility] - Chemistry and C hemistry - challengeOrdered By: Dr. Waite on 02-06-2022 CO2 [Moles/Vol] 29.0 mmol/L 21.0-32.0 [facility] Urea nitrogen/Creatinine [Mass ratio] 55.6 mg/mg 10-20 [facility] - Hematology and Cell countsOrdered By: Dr. Waite on 02-06-2022 Erythrocyte distribution width (RBC) [Entitic vol] 43.1 fL 35.1-43.9 [facility] Erythrocyte distribution width (RBC) [Ratio] 13.8 % 11.6-14.6 [facility] Immature granulocytes/100 WBC (Bld) 0.100 % 0.0-0.9 [facility] Comment on above: IG% - Immature Granu locytes (promyelocytes, myelocytes and metamyelocytes) > 1% indicates that a LEFT SHIFT is Present. MCH (RBC) [Entitic mass] 28.8 pg 27.0-32.0 [facility] Nucleated RBC/100 WBC (Bld) [Ratio] 0 % 0-5 [facility] MCHC Auto (RBC) [Mass/Vol]Or dered By: Dr. Waite on 02-06-2022 MCHC (RBC) [Mass/Vol] 33.4 g/dL 32-36 [facility] No Panel InformationOrdered By: Dr. Waite on 02-06-2022 Estimated GFR (MDRD) Amer 482 mL/min >60 [facility] Comment on above: GFR Calc Estimated GFR (MDRD) Non-Af Amer 399 mL/min >60 [facility] Comment on above: Non- GFR Calc 28.8 pg 27.0-32.0 [facility] 13.8 % 11.6-14.6 [facility] 43.1 fl 35.1-43.9 [facility] 0.100 % 0.0-0.9 [facility] 0 % 0-5 [facility] 399 mL/min >60 [facility] 482 mL/min >60 [facility] 55.6 RATIO 10-20 [facility] 29.0 mmol/L 21.0-32.0 [facility] Platelets bldOrdered By: Dr. Waite on 02-06-2022 Platelets (Bld) [#/Vol] 171 10*3/uL 150-450 [facility] Serum or plasma calcium jacinta urement (mass/volume)Ordered By: Dr. Waite on 02-06-2022 Calcium [Mass/Vol] 8.3 mg/dL 8.5-10.1 [facility] Serum or plasma creatinine m easurement (mass/volume)Ordered By: Dr. Waite on 02-06-2022 Creatinine [Mass/Vol] 0.27 mg/dL 0.70-1.30 [facility] Comment on above: The validity of the calculated GFR & GFRAA in patients over 70 years has not been determined. Clinical correlation is essential. Serum or plasma urea nitroge n measurement (mass/volume)Ordered By: Dr. Waite on 02-06-2022 Urea nitrogen [Mass/Vol] 15 mg/dL 7-18 [facility] Thin prep Papanicolaou smear with manual screeningOrdered By: Dr. Waite on 02-06-2022 Thin prep Papanicolaou smear with manual screening 6 5-15 [facility] Absolute lymphocyte countOrd ered By: Dr. Waite on 01-05-2022 Lymphocytes Auto (Unsp spec) [#/Vol] 2.32 10*3/uL 0.83-4.51 [facility] Basophil percentageOrdered B y: Dr. Waite on 01-05-2022 Basophil percentage 87 mg/dL 74-106 [facility] Basophil percentage 7.5 g/dL 6.4-8.2 [facility] Basophil percentage 0.20 mg/dL 0.20-1.00 [facility] Basophil percentage 139 mmol/L 136-145 [facility] Basophil percentage 4.2 mmol/L 3.5-5.1 [facility] Basophil percentage 102 mmol/L 98-107 [facility] Basophils (Bld) [#/Vol] 6.3 10*3/uL 4.4-11.0 [facility] Basophils (Bld) [#/Vol] 2.9 10*3/uL 2.0-7.7 [facility] Basophils/100 WBC (Bld) 0.5 % 0-[address] [facility] Basophils/100 WBC (Bld) 45.8 % 47-[address] [facility] Basophils/100 WBC (Bld) 8.0 % 0-[address] [facility] Bilirubin [Mass/Vol] 0.20 mg/dL 0.20-1.00 [facility] Comment on above: For patients on eltr ombopag therapy, use of Dimension [place] TBIL is not recommended. Chloride [Moles/Vol] 102 mmol/L 98-107 [facility] Eosinophils/100 WBC (Bld) 8.0 % 0-5 [facility] Glucose [Mass/Vol] 87 mg/dL 74-106 [facility] Neutrophils (Bld) [#/Vol] 2.9 10*3/uL 2.0-7.7 [facility] Neutrophils/100 WBC (Bld) 45.8 % 47-70 [facility] Potassium [Moles/Vol] 4.2 mmol/L 3.5-5.1 [facility] Protein [Mass/Vol] 7.5 g/dL 6.4-8.2 [facility] Sodium [Moles/Vol] 139 mmol/L 136-145 [facility] WBC (Bld) [#/Vol] 6.3 10*3/uL 4.4-11.0 [facility] Blood erythrocytes count (nu mber/volume)Ordered By: Dr. Waite on 01-05-2022 RBC (Bld) [#/Vol] 4.05 10*6/uL 4.6-6.2 [facility] Blood hemoglobin measurement (mass/volume)Ordered By: Dr. Waite on 01-05-2022 Hemoglobin (Bld) [Mass/Vol] 11.6 g/dL 13.0-16.5 [facility] Blood lymphocytes/100 leukoc ytesOrdered By: Dr. Waite on 01-05-2022 Lymphocytes/100 WBC (Bld) 37.0 % 19-41 [facility] Blood monocytes/100 leukocyt esOrdered By: Dr. Waite on 01-05-2022 Monocytes/100 WBC (Bld) 8.5 % 0-[address] [facility] Blood platelet mean volumeOr dered By: Dr. Waite on 01-05-2022 Platelet mean volume (Bld) [Entitic vol] 10.0 fL 6.2-12.0 [facility] Determination of erythrocyte mean corpuscular volume (MCV)Ordered By: Dr. Waite on 01-05-2022 MCV (RBC) [Entitic vol] 86.9 fL 80-[address] [facility] Hematocrit Auto (Bld) [Volum e fraction]Ordered By: Dr. Waite on 01-05-2022 Hematocrit (Bld) [Volume fraction] 35.2 % 40-54 [facility] - Chemistry and C hemistry - challengeOrdered By: Dr. Waite on 01-05-2022 ALP [Catalytic activity/Vol] 126 U/L 45-117 [facility] ALT [Catalytic activity/Vol] 20 U/L 16-61 [facility] CO2 [Moles/Vol] 31.0 mmol/L 21.0-32.0 [facility] Globulin (S) [Mass/Vol] 4.4 g/dL 2.2-4.[address] [facility] Urea nitrogen/Creatinine [Mass ratio] 51.7 mg/mg 10-20 [facility] - Hematology and Cell countsOrdered By: Dr. Waite on 01-05-2022 Erythrocyte distribution width (RBC) [Entitic vol] 44.0 fL 35.1-43.9 [facility] Erythrocyte distribution width (RBC) [Ratio] 13.8 % 11.6-14.6 [facility] Immature granulocytes/100 WBC (Bld) 0.200 % 0.0-0.9 [facility] Comment on above: IG% - Immature Granu locytes (promyelocytes, myelocytes and metamyelocytes) > 1% indicates that a LEFT SHIFT is Present. MCH (RBC) [Entitic mass] 28.6 pg 27.0-32.0 [facility] Nucleated RBC/100 WBC (Bld) [Ratio] 0 % 0-5 [facility] MCHC Auto (RBC) [Mass/Vol]Or dered By: Dr. Waite on 01-05-2022 MCHC (RBC) [Mass/Vol] 33.0 g/dL 32-36 [facility] No Panel InformationOrdered By: Dr. Waite on 01-05-2022 Estimated GFR (MDRD) Amer 480 mL/min >60 [facility] Comment on above: GFR Calc Estimated GFR (MDRD) Non-Af Amer 397 mL/min >60 [facility] Comment on above: Non- GFR Calc 28.6 pg 27.0-32.0 [facility] 13.8 % 11.6-14.6 [facility] 44.0 fl 35.1-43.9 [facility] 0.200 % 0.0-0.9 [facility] 0 % 0-5 [facility] 397 mL/min >60 [facility] 480 mL/min >60 [facility] 51.7 RATIO 10-20 [facility] 4.4 g/dL 2.2-4.2 [facility] 126 U/L 45-117 [facility] 20 U/L 16-61 [facility] 31.0 mmol/L 21.0-32.0 [facility] Platelets bldOrdered By: Dr. Waite on 01-05-2022 Platelets (Bld) [#/Vol] 165 10*3/uL 150-450 [facility] Serum or plasma albumin jacinta urement (mass/volume)Ordered By: Dr. Waite on 01-05-2022 Albumin [Mass/Vol] 3.1 g/dL 3.2-5.0 [facility] Serum or plasma albumin/glob ulin mass ratioOrdered By: Dr. Waite on 01-05-2022 Albumin/Globulin [Mass ratio] 0.7 {ratio} 0.9-2.4 [facility] Serum or plasma calcium jacinta urement (mass/volume)Ordered By: Dr. Waite on 01-05-2022 Calcium [Mass/Vol] 8.6 mg/dL 8.5-10.1 [facility] Serum or plasma creatinine m easurement (mass/volume)Ordered By: Dr. Waite on 01-05-2022 Creatinine [Mass/Vol] 0.27 mg/dL 0.70-1.30 [facility] Comment on above: The validity of the calculated GFR & GFRAA in patients over 70 years has not been determined. Clinical correlation is essential. Serum or plasma urea nitroge n measurement (mass/volume)Ordered By: Dr. Waite on 01-05-2022 Urea nitrogen [Mass/Vol] 14 mg/dL 7-18 [facility] Thin prep Papanicolaou smear with manual screeningOrdered By: Dr. Waite on 01-05-2022 Thin prep Papanicolaou smear with manual screening 13 U/L 15-37 [facility] Thin prep Papanicolaou smear with manual screening 6 5-15 [facility] Absolute lymphocyte countOrd ered By: Dr. Waite on 12-08-2021 Lymphocytes Auto (Unsp spec) [#/Vol] 2.18 10*3/uL 0.83-4.51 [facility] Basophil percentageOrdered B y: Dr. Waite on 12-08-2021 Basophil percentage 88 mg/dL 74-106 [facility] Basophil percentage 143 mmol/L 136-145 [facility] Basophil percentage 4.2 mmol/L 3.5-5.1 [facility] Basophil percentage 105 mmol/L 98-107 [facility] Basophils (Bld) [#/Vol] 6.4 10*3/uL 4.4-11.0 [facility] Basophils (Bld) [#/Vol] 3.1 10*3/uL 2.0-7.7 [facility] Basophils/100 WBC (Bld) 0.3 % 0-[address] [facility] Basophils/100 WBC (Bld) 48.5 % 47-[address] [facility] Basophils/100 WBC (Bld) 8.9 % 0-[address] [facility] Chloride [Moles/Vol] 105 mmol/L 98-107 [facility] Eosinophils/100 WBC (Bld) 8.9 % 0-5 [facility] Glucose [Mass/Vol] 88 mg/dL 74-106 [facility] Neutrophils (Bld) [#/Vol] 3.1 10*3/uL 2.0-7.7 [facility] Neutrophils/100 WBC (Bld) 48.5 % 47-70 [facility] Potassium [Moles/Vol] 4.2 mmol/L 3.5-5.1 [facility] Sodium [Moles/Vol] 143 mmol/L 136-145 [facility] WBC (Bld) [#/Vol] 6.4 10*3/uL 4.4-11.0 [facility] Blood erythrocytes count (nu mber/volume)Ordered By: Dr. Waite on 12-08-2021 RBC (Bld) [#/Vol] 3.54 10*6/uL 4.6-6.2 [facility] Blood hemoglobin measurement (mass/volume)Ordered By: Dr. Waite on 12-08-2021 Hemoglobin (Bld) [Mass/Vol] 10.0 g/dL 13.0-16.5 [facility] Blood lymphocytes/100 leukoc ytesOrdered By: Dr. Waite on 12-08-2021 Lymphocytes/100 WBC (Bld) 33.9 % 19-41 [facility] Blood monocytes/100 leukocyt esOrdered By: Dr. Waite on 12-08-2021 Monocytes/100 WBC (Bld) 7.9 % 0-[address] [facility] Blood platelet mean volumeOr dered By: Dr. Waite on 12-08-2021 Platelet mean volume (Bld) [Entitic vol] 9.9 fL 6.2-12.0 [facility] Determination of erythrocyte mean corpuscular volume (MCV)Ordered By: Dr. Waite on 12-08-2021 MCV (RBC) [Entitic vol] 89.5 fL 80-[address] [facility] Hematocrit Auto (Bld) [Volum e fraction]Ordered By: Dr. Waite on 12-08-2021 Hematocrit (Bld) [Volume fraction] 31.7 % 40-54 [facility] - Chemistry and C hemistry - challengeOrdered By: Dr. Waite on 12-08-2021 CO2 [Moles/Vol] 29.0 mmol/L 21.0-32.0 [facility] Urea nitrogen/Creatinine [Mass ratio] 48.8 mg/mg 10-20 [facility] - Hematology and Cell countsOrdered By: Dr. Waite on 12-08-2021 Erythrocyte distribution width (RBC) [Entitic vol] 44.7 fL 35.1-43.9 [facility] Erythrocyte distribution width (RBC) [Ratio] 13.6 % 11.6-14.6 [facility] Immature granulocytes/100 WBC (Bld) 0.500 % 0.0-0.9 [facility] Comment on above: IG% - Immature Granu locytes (promyelocytes, myelocytes and metamyelocytes) > 1% indicates that a LEFT SHIFT is Present. MCH (RBC) [Entitic mass] 28.2 pg 27.0-32.0 [facility] Nucleated RBC/100 WBC (Bld) [Ratio] 0 % 0-5 [facility] MCHC Auto (RBC) [Mass/Vol]Or dered By: Dr. Waite on 12-08-2021 MCHC (RBC) [Mass/Vol] 31.5 g/dL 32-36 [facility] No Panel InformationOrdered By: Dr. Waite on 12-08-2021 Estimated GFR (MDRD) Amer 450 mL/min >60 [facility] Comment on above: GFR Calc Estimated GFR (MDRD) Non-Af Amer 372 mL/min >60 [facility] Comment on above: Non- GFR Calc 28.2 pg 27.0-32.0 [facility] 13.6 % 11.6-14.6 [facility] 44.7 fl 35.1-43.9 [facility] 0.500 % 0.0-0.9 [facility] 0 % 0-5 [facility] 372 mL/min >60 [facility] 450 mL/min >60 [facility] 48.8 RATIO 10-20 [facility] 29.0 mmol/L 21.0-32.0 [facility] Platelets bldOrdered By: Dr. Waite on 12-08-2021 Platelets (Bld) [#/Vol] 239 10*3/uL 150-450 [facility] Serum or plasma calcium jacinta urement (mass/volume)Ordered By: Dr. Waite on 12-08-2021 Calcium [Mass/Vol] 8.1 mg/dL 8.5-10.1 [facility] Serum or plasma creatinine m easurement (mass/volume)Ordered By: Dr. Waite on 12-08-2021 Creatinine [Mass/Vol] 0.29 mg/dL 0.70-1.30 [facility] Comment on above: The validity of the calculated GFR & GFRAA in patients over 70 years has not been determined. Clinical correlation is essential. Serum or plasma urea nitroge n measurement (mass/volume)Ordered By: Dr. Waite on 12-08-2021 Urea nitrogen [Mass/Vol] 14 mg/dL - [facility] Thin prep Papanicolaou smear with manual screeningOrdered By: Dr. Waite on 12-08-2021 Thin prep Papanicolaou smear with manual screening 9 - [facility] Absolute lymphocyte countOrd ered By: Dr. Dillard on 12-05-2021 Lymphocytes Auto (Unsp spec) [#/Vol] 1.83 10*3/uL 0.83-4.51 [facility] Basophil percentageOrdered B y: Dr. Dillard on 12-05-2021 Basophil percentage 105 mg/dL 74-106 [facility] Basophil percentage 7.8 g/dL 6.4-8.2 [facility] Basophil percentage 0.20 mg/dL 0.20-1.00 [facility] Basophil percentage 140 mmol/L 136-145 [facility] Basophil percentage 3.8 mmol/L 3.5-5.1 [facility] Basophil percentage 107 mmol/L 98-107 [facility] Basophils (Bld) [#/Vol] 7.0 10*3/uL 4.4-11.0 [facility] Basophils (Bld) [#/Vol] 3.8 10*3/uL 2.0-7.7 [facility] Basophils/100 WBC (Bld) 0.3 % 0-[address] [facility] Basophils/100 WBC (Bld) 54.8 % 47-[address] [facility] Basophils/100 WBC (Bld) 9.3 % 0-[address] [facility] Bilirubin [Mass/Vol] 0.20 mg/dL 0.20-1.00 [facility] Comment on above: For patients on eltr ombopag therapy, use of Dimension [place] TBIL is not recommended. Chloride [Moles/Vol] 107 mmol/L 98-107 [facility] Eosinophils/100 WBC (Bld) 9.3 % 0-5 [facility] Glucose [Mass/Vol] 105 mg/dL 74-106 [facility] Comment on above: Fasting Glucose resu lt from 100 to 125 mg/dL suggests IMPAIRED HOMEOSTASIS per A.D.A. criteria. Neutrophils (Bld) [#/Vol] 3.8 10*3/uL 2.0-7.7 [facility] Neutrophils/100 WBC (Bld) 54.8 % 47-70 [facility] Potassium [Moles/Vol] 3.8 mmol/L 3.5-5.1 [facility] Protein [Mass/Vol] 7.8 g/dL 6.4-8.2 [facility] Sodium [Moles/Vol] 140 mmol/L 136-145 [facility] WBC (Bld) [#/Vol] 7.0 10*3/uL 4.4-11.0 [facility] Blood erythrocytes count (nu mber/volume)Ordered By: Dr. Dillard on 12-05-2021 RBC (Bld) [#/Vol] 3.84 10*6/uL 4.6-6.2 [facility] Blood hemoglobin measurement (mass/volume)Ordered By: Dr. Dillard on 12-05-2021 Hemoglobin (Bld) [Mass/Vol] 10.7 g/dL 13.0-16.5 [facility] Blood lymphocytes/100 leukoc ytesOrdered By: Dr. Dillard on 12-05-2021 Lymphocytes/100 WBC (Bld) 26.3 % 19-41 [facility] Blood monocytes/100 leukocyt esOrdered By: Dr. Dillard on 12-05-2021 Monocytes/100 WBC (Bld) 8.9 % 0-10 [facility] Blood platelet mean volumeOr dered By: Dr. Dillard on 12-05-2021 Platelet mean volume (Bld) [Entitic vol] 10.0 fL 6.2-12.0 [facility] Determination of erythrocyte mean corpuscular volume (MCV)Ordered By: Dr. Dillard on 12-05-2021 MCV (RBC) [Entitic vol] 89.6 fL 80-[address] [facility] Hematocrit Auto (Bld) [Volum e fraction]Ordered By: Dr. Dillard on 12-05-2021 Hematocrit (Bld) [Volume fraction] 34.4 % 40-54 [facility] - Chemistry and C hemistry - challengeOrdered By: Dr. Dillard on 12-05-2021 ALP [Catalytic activity/Vol] 134 U/L 45-117 [facility] ALT [Catalytic activity/Vol] 24 U/L 16-61 [facility] CO2 [Moles/Vol] 27.0 mmol/L 21.0-32.0 [facility] Globulin (S) [Mass/Vol] 5.0 g/dL 2.2-4.[address] [facility] Urea nitrogen/Creatinine [Mass ratio] 47.1 mg/mg 10-20 [facility] - Hematology and Cell countsOrdered By: Dr. Dillard on 12-05-2021 Erythrocyte distribution width (RBC) [Entitic vol] 45.1 fL 35.1-43.9 [facility] Erythrocyte distribution width (RBC) [Ratio] 13.8 % 11.6-14.6 [facility] Immature granulocytes/100 WBC (Bld) 0.400 % 0.0-0.9 [facility] Comment on above: IG% - Immature Granu locytes (promyelocytes, myelocytes and metamyelocytes) > 1% indicates that a LEFT SHIFT is Present. MCH (RBC) [Entitic mass] 27.9 pg 27.0-32.0 [facility] Nucleated RBC/100 WBC (Bld) [Ratio] 0 % 0-5 [facility] MCHC Auto (RBC) [Mass/Vol]Or dered By: Dr. Dillard on 12-05-2021 MCHC (RBC) [Mass/Vol] 31.1 g/dL 32-36 [facility] Comment on above: Delta: 32.8 on 12/04 No Panel InformationOrdered By: Dr. Dillard on 12-05-2021 Estimated Creatinine Clearance Calc 269.76 ml/min [facility] Estimated GFR (MDRD) Amer 516 mL/min >60 [facility] Comment on above: GFR Calc Estimated GFR (MDRD) Non-Af Amer 426 mL/min >60 [facility] Comment on above: Non- GFR Calc 27.9 pg 27.0-32.0 [facility] 13.8 % 11.6-14.6 [facility] 45.1 fl 35.1-43.9 [facility] 0.400 % 0.0-0.9 [facility] 0 % 0-5 [facility] 426 mL/min >60 [facility] 516 mL/min >60 [facility] 269.76 ml/min [facility] 47.1 RATIO 10-20 [facility] 5.0 g/dL 2.2-4.2 [facility] 134 U/L 45-117 [facility] 24 U/L 16-61 [facility] 27.0 mmol/L 21.0-32.0 [facility] Platelets bldOrdered By: Dr. Dillard on 12-05-2021 Platelets (Bld) [#/Vol] 181 10*3/uL 150-450 [facility] Serum or plasma albumin jacinta urement (mass/volume)Ordered By: Dr. Dillard on 12-05-2021 Albumin [Mass/Vol] 2.8 g/dL 3.2-5.0 [facility] Serum or plasma albumin/glob ulin mass ratioOrdered By: Dr. Dillard on 12-05-2021 Albumin/Globulin [Mass ratio] 0.6 {ratio} 0.9-2.4 [facility] Serum or plasma calcium jacinta urement (mass/volume)Ordered By: Dr. Dillard on 12-05-2021 Calcium [Mass/Vol] 8.7 mg/dL 8.5-10.1 [facility] Serum or plasma creatinine m easurement (mass/volume)Ordered By: Dr. Dillard on 12-05-2021 Creatinine [Mass/Vol] 0.26 mg/dL 0.70-1.30 [facility] Comment on above: The validity of the calculated GFR & GFRAA in patients over 70 years has not been determined. Clinical correlation is essential. Serum or plasma urea nitroge n measurement (mass/volume)Ordered By: Dr. Dillard on 12-05-2021 Urea nitrogen [Mass/Vol] 12 mg/dL 7-18 [facility] Thin prep Papanicolaou smear with manual screeningOrdered By: Dr. Dillard on 12-05-2021 Thin prep Papanicolaou smear with manual screening 13 U/L 15-37 [facility] Thin prep Papanicolaou smear with manual screening 6 5-15 [facility] Bacteria identified Respirat ory culture Nom (Unsp spec)Ordered By: Dominic Méndez on 12-02-2021 Respiratory Culture Pseudomonas aeroginosa [facility] Microbial respiratory culture Pseudomonas aeroginosa [facility] - Chemistry and C hemistry - challengeOrdered By: Dr. Dillard on 12-02-2021 Magnesium [Mass/Vol] 2.2 mg/dL 1.6-2.6 [facility] No Panel InformationOrdered By: Dr. Dillard on 12-02-2021 2.2 mg/dL 1.6-2.6 [facility] Assessment of wrist artery p atency prior to arterial punctureOrdered By: Dr. Dillard on 12-01-2021 Arterial patency Wrist artery --pre arterial puncture Negative [facility] Base excessOrdered By: Dr. Roxi britton on 12-01-2021 Base excess Calc (BldV) [Moles/Vol] -3 mmol/L -2-2 [facility] Basophil percentageOrdered B y: Dr. Dillard on 12-01-2021 Basophil percentage 1.2 mmol/L 0.4-2.0 [facility] Lactate [Moles/Vol] 1.2 mmol/L 0.4-2.0 [facility] Basophil percentage 21.5 mmol/L 22-26 [facility] Basophils/100 WBC (Bld) 94 % 95-[address] [facility] CO2 (BldA) [Partial pressure ]Ordered By: Dr. Dillard on 12-01-2021 CO2 (Bld) [Partial pressure] 31.2 mm[Hg] 35-45 [facility] Gram stain for investigation of transfusion reactionOrdered By: Dominic Méndez on 12-01-2021 Microscopic observation Gram stain Nom (Unsp spec) [facility] - Microbiology an d Antimicrobial susceptibilityOrdered By: Dr. Moreira on 12-01-2021 Respiratory pathogens DNA and RNA 12b panel YAYO+probe (Unsp spec) [facility] No Panel InformationOrdered By: Dr. Dillard on 12-01-2021 Blood Gas Liter Flow 3.0 /min [facility] Blood Gas Sample Site R [facility] Blood Gas Specimen Type ART [facility] Blood Gas Total CO2 22 mmol/L [facility] Blood Gas Vent Mode home vent [facility] Oxygen Delivery Device Adult Vent [facility] ART [facility] R [facility] home vent [facility] Adult Vent [facility] 3.0 /min [facility] 22 mmol/L [facility] Oxygen (BldA) [Partial press ure]Ordered By: Dr. Dillard on 12-01-2021 Oxygen (Bld) [Partial pressure] 65 mmHG 75-100 [facility] pH measurementOrdered By: Dr Roxanne Dillard on 12-01-2021 pH (Unsp spec) 7.45 [pH] 7.35-7.45 [facility] Absolute lymphocyte counton 11-30-2021 Lymphocytes Auto (Unsp spec) [#/Vol] 1.55 10*3/uL 0.83-4.51 [facility] Work Phone: Basophil percentageon 2021 Basophils/100 WBC (Bld) 0.3 % 0-1 [facility] Work Phone: Chloride [Moles/Vol] 104 mmol/L 98-107 [facility] Work Phone: Eosinophils/100 WBC (Bld) 5.1 % 0-5 [facility] Work Phone: Glucose [Mass/Vol] 84 mg/dL 74-106 [facility] Work Phone: Neutrophils (Bld) [#/Vol] 3.6 10*3/uL 2.0-7.7 [facility] Work Phone: Neutrophils/100 WBC (Bld) 58.6 % 47-70 [facility] Work Phone: Potassium [Moles/Vol] 3.7 mmol/L 3.5-5.1 [facility] Work Phone: Sodium [Moles/Vol] 140 mmol/L 136-145 [facility] Work Phone: WBC (Bld) [#/Vol] 6.1 10*3/uL 4.4-11.0 [facility] Work Phone: Blood erythrocytes count (nu mber/volume)on 11-30-2021 RBC (Bld) [#/Vol] 4.31 10*6/uL 4.6-6.2 [facility] Work Phone: Blood hemoglobin measurement (mass/volume)on 11-30-2021 Hemoglobin (Bld) [Mass/Vol] 12.0 g/dL 13.0-16.5 [facility] Work Phone: Blood lymphocytes/100 leukoc yteson 11-30-2021 Lymphocytes/100 WBC (Bld) 25.6 % 19-41 [facility] Work Phone: Blood monocytes/100 leukocyt eson 11-30-2021 Monocytes/100 WBC (Bld) 10.2 % 0-[address] [facility] Work Phone: Blood platelet mean volumeon 11-30-2021 Platelet mean volume (Bld) [Entitic vol] 9.8 fL 6.2-12.0 [facility] Work Phone: Determination of erythrocyte mean corpuscular volume (MCV)on 11-30-2021 MCV (RBC) [Entitic vol] 86.8 fL 80-[address] [facility] Work Phone: Hematocrit Auto (Bld) [Volum e fraction]on 11-30-2021 Hematocrit (Bld) [Volume fraction] 37.4 % 40-54 [facility] Work Phone: Laboratory - Chemistry and C hemistry - challengeon 11-30-2021 CO2 [Moles/Vol] 28.0 mmol/L 21.0-32.0 [facility] Work Phone: Urea nitrogen/Creatinine [Mass ratio] 35.0 mg/mg 10-20 [facility] Work Phone: Laboratory - Hematology and Cell countson 11-30-2021 Erythrocyte distribution width (RBC) [Entitic vol] 41.7 fL 35.1-43.9 [facility] Work Phone: Erythrocyte distribution width (RBC) [Ratio] 13.2 % 11.6-14.6 [facility] Work Phone: Immature granulocytes/100 WBC (Bld) 0.200 % 0.0-0.9 [facility] Work Phone: Comment on above: IG% - Immature Granu locytes (promyelocytes, myelocytes and metamyelocytes) > 1% indicates that a LEFT SHIFT is Present. MCH (RBC) [Entitic mass] 27.8 pg 27.0-32.0 [facility] Work Phone: Nucleated RBC/100 WBC (Bld) [Ratio] 0 % 0-5 [facility] Work Phone: MCHC Auto (RBC) [Mass/Vol]on 11-30-2021 MCHC (RBC) [Mass/Vol] 32.1 g/dL 32-36 [facility] Work Phone: No Panel Informationon 11-30 Estimated Creatinine Clearance Calc 357.48 ml/min [facility] Work Phone: Estimated GFR (MDRD) Amer 406 mL/min >60 [facility] Work Phone: Comment on above: GFR Calc Estimated GFR (MDRD) Non-Af Amer 335 mL/min >60 [facility] Work Phone: Comment on above: Non- GFR Calc Platelets bldon 11-30-2021 Platelets (Bld) [#/Vol] 166 10*3/uL 150-450 [facility] Work Phone: Serum or plasma calcium jacinta urement (mass/volume)on 11-30-2021 Calcium [Mass/Vol] 8.7 mg/dL 8.5-10.1 [facility] Work Phone: Serum or plasma creatinine m easurement (mass/volume)on 11-30-2021 Creatinine [Mass/Vol] 0.31 mg/dL 0.70-1.30 [facility] Work Phone: Comment on above: The validity of the calculated GFR & GFRAA in patients over 70 years has not been determined. Clinical correlation is essential. Serum or plasma urea nitroge n measurement (mass/volume)on 11-30-2021 Urea nitrogen [Mass/Vol] 11 mg/dL 7-18 [facility] Work Phone: Thin prep Papanicolaou smear with manual screeningon 11-30-2021 Thin prep Papanicolaou smear with manual screening 8 5-15 [facility] Work Phone: Absolute lymphocyte counton 11-03-2021 Lymphocytes Auto (Unsp spec) [#/Vol] 2.54 10*3/uL 0.83-4.51 [facility] Work Phone: [phone] Basophil percentageon 2021 Basophils/100 WBC (Bld) 0.5 % 0-[address] [facility] Work Phone: Chloride [Moles/Vol] 102 mmol/L 98-107 [facility] Work Phone: Eosinophils/100 WBC (Bld) 4.1 % 0-5 [facility] Work Phone: Glucose [Mass/Vol] 98 mg/dL 74-106 [facility] Work Phone: Neutrophils (Bld) [#/Vol] 3.2 10*3/uL 2.0-7.7 [facility] Work Phone: Neutrophils/100 WBC (Bld) 47.6 % 47-70 [facility] Work Phone: Potassium [Moles/Vol] 3.6 mmol/L 3.5-5.1 [facility] Work Phone: Sodium [Moles/Vol] 138 mmol/L 136-145 [facility] Work Phone: WBC (Bld) [#/Vol] 6.6 10*3/uL 4.4-11.0 [facility] Work Phone: Blood erythrocytes count (nu mber/volume)on 11-03-2021 RBC (Bld) [#/Vol] 4.09 10*6/uL 4.6-6.2 [facility] Phone: Blood hemoglobin measurement (mass/volume)on 11-03-2021 Hemoglobin (Bld) [Mass/Vol] 11.9 g/dL 13.0-16.5 [facility] Work Phone: Blood lymphocytes/100 leukoc yteson 11-03-2021 Lymphocytes/100 WBC (Bld) 38.4 % 19-41 [facility] Work Phone: Blood monocytes/100 leukocyt eson 11-03-2021 Monocytes/100 WBC (Bld) 9.2 % 0-[address] [facility] Work Phone: Blood platelet mean volumeon 11-03-2021 Platelet mean volume (Bld) [Entitic vol] 10.1 fL 6.2-12.0 [facility] Work Phone: Determination of erythrocyte mean corpuscular volume (MCV)on 11-03-2021 MCV (RBC) [Entitic vol] 88.3 fL 80-[address] [facility] Work Phone: Hematocrit Auto (Bld) [Volum e fraction]on 11-03-2021 Hematocrit (Bld) [Volume fraction] 36.1 % 40-54 [facility] Work Phone: Laboratory - Chemistry and C hemistry - challengeon 11-03-2021 CO2 [Moles/Vol] 27.0 mmol/L 21.0-32.0 [facility] Work Phone: Urea nitrogen/Creatinine [Mass ratio] 47.9 mg/mg 10-20 [facility] Work Phone: Laboratory - Hematology and Cell countson 11-03-2021 Erythrocyte distribution width (RBC) [Entitic vol] 44.0 fL 35.1-43.9 [facility] Work Phone: Erythrocyte distribution width (RBC) [Ratio] 13.5 % 11.6-14.6 [facility] Work Phone: Immature granulocytes/100 WBC (Bld) 0.200 % 0.0-0.9 [facility] Work Phone: Comment on above: IG% - Immature Granu locytes (promyelocytes, myelocytes and metamyelocytes) > 1% indicates that a LEFT SHIFT is Present. MCH (RBC) [Entitic mass] 29.1 pg 27.0-32.0 [facility] Work Phone: Nucleated RBC/100 WBC (Bld) [Ratio] 0 % 0-5 [facility] Work Phone: MCHC Auto (RBC) [Mass/Vol]on 11-03-2021 MCHC (RBC) [Mass/Vol] 33.0 g/dL 32-36 [facility] Work Phone: No Panel Informationon 11-03 Estimated GFR (MDRD) Amer 352 mL/min >60 [facility] Work Phone: Comment on above: GFR Calc Estimated GFR (MDRD) Non-Af Amer 291 mL/min >60 [facility] Work Phone: Comment on above: Non- GFR Calc Platelets bldon 11-03-2021 Platelets (Bld) [#/Vol] 215 10*3/uL 150-450 [facility] Work Phone: Serum or plasma calcium jacinta urement (mass/volume)on 11-03-2021 Calcium [Mass/Vol] 8.9 mg/dL 8.5-10.1 [facility] Work Phone: Serum or plasma creatinine m easurement (mass/volume)on 09-12-2022 Creatinine [Mass/Vol] 0.36 mg/dL 0.70-1.30 [facility] Work Phone: Comment on above: The validity of the calculated GFR & GFRAA in patients over 70 years has not been determined. Clinical correlation is essential. Serum or plasma urea nitroge n measurement (mass/volume)on 11-03-2021 Urea nitrogen [Mass/Vol] 17 mg/dL 7-18 [facility] Work Phone: Thin prep Papanicolaou smear with manual screeningon 11-03-2021 Thin prep Papanicolaou smear with manual screening 9 5-15 [facility] Work Phone: Absolute lymphocyte counton 09-10-2021 Lymphocytes Auto (Unsp spec) [#/Vol] 2.63 10*3/uL 0.83-4.51 [facility] Work Phone: [phone] Basophil percentageon 2021 Basophils/100 WBC (Bld) 0.3 % 0-[address] [facility] Work Phone: [phone] Chloride [Moles/Vol] 102 mmol/L 98-107 [facility] Work Phone: [phone] Eosinophils/100 WBC (Bld) 3.9 % 0-5 [facility] Work Phone: [phone] Glucose [Mass/Vol] 80 mg/dL 74-106 [facility] Work Phone: [phone] Neutrophils (Bld) [#/Vol] 3.5 10*3/uL 2.0-7.7 [facility] Work Phone: Neutrophils/100 WBC (Bld) 48.5 % 47-70 [facility] Work Phone: Potassium [Moles/Vol] 4.1 mmol/L 3.5-5.1 [facility] Work Phone: [phone] Sodium [Moles/Vol] 138 mmol/L 136-145 [facility] Work Phone: [phone] WBC (Bld) [#/Vol] 7.1 10*3/uL 4.4-11.0 [facility]: Blood erythrocytes count (nu mber/volume)on 09-10-2021 RBC (Bld) [#/Vol] 4.00 10*6/uL 4.6-6.2 [facility] Work Phone: Blood hemoglobin measurement (mass/volume)on 09-10-2021 Hemoglobin (Bld) [Mass/Vol] 11.3 g/dL 13.0-16.5 [facility] Work Phone: Blood lymphocytes/100 leukoc yteson 09-10-2021 Lymphocytes/100 WBC (Bld) 36.9 % 19-41 [facility] Work Phone: Blood monocytes/100 leukocyt eson 09-10-2021 Monocytes/100 WBC (Bld) 10.3 % 0-[address] [facility] Work Phone: Blood platelet mean volumeon 09-10-2021 Platelet mean volume (Bld) [Entitic vol] 10.7 fL 6.2-12.0 [facility] Work Phone: Determination of erythrocyte mean corpuscular volume (MCV)on 09-10-2021 MCV (RBC) [Entitic vol] 89.5 fL 80-[address] [facility] Work Phone: Hematocrit Auto (Bld) [Volum e fraction]on 09-10-2021 Hematocrit (Bld) [Volume fraction] 35.8 % 40-54 [facility] Work Phone: Iron measurement (mass/mass) on 09-10-2021 Iron (Unsp spec) [Mass/Mass] 59 ug/dL 65-175 [facility] Work Phone: Laboratory - Chemistry and C hemistry - challengeon 09-10-2021 CO2 [Moles/Vol] 30.0 mmol/L 21.0-32.0 [facility] Work Phone: Urea nitrogen/Creatinine [Mass ratio] 71.9 mg/mg 12-11 [facility] Work Phone: Laboratory - Hematology and Cell countson 09-10-2021 Erythrocyte distribution width (RBC) [Entitic vol] 47.7 fL 35.1-43.9 [facility] Work Phone: Erythrocyte distribution width (RBC) [Ratio] 14.6 % 11.6-14.6 [facility] Work Phone: Immature granulocytes/100 WBC (Bld) 0.100 % 0.0-0.9 [facility] Work Phone: Comment on above: IG% - Immature Granu locytes (promyelocytes, myelocytes and metamyelocytes) > 1% indicates that a LEFT SHIFT is Present. MCH (RBC) [Entitic mass] 28.3 pg 27.0-32.0 [facility] Work Phone: Nucleated RBC/100 WBC (Bld) [Ratio] 0 % 0-5 [facility] Work Phone: MCHC Auto (RBC) [Mass/Vol]on 09-10-2021 MCHC (RBC) [Mass/Vol] 31.6 g/dL 32-36 [facility] Work Phone: No Panel Informationon 09-10 Estimated GFR (MDRD) Amer 467 mL/min >60 [facility] Work Phone: Comment on above: GFR Calc Estimated GFR (MDRD) Non-Af Amer 386 mL/min >60 [facility] Work Phone: Comment on above: Non- GFR Calc Platelets bldon 09-10-2021 Platelets (Bld) [#/Vol] 177 10*3/uL 150-450 [facility] Work Phone: Serum or plasma calcium jacinta urement (mass/volume)on 09-10-2021 Calcium [Mass/Vol] 9.0 mg/dL 8.5-10.1 [facility] Work Phone: Serum or plasma creatinine m easurement (mass/volume)on 09-10-2021 Creatinine [Mass/Vol] 0.28 mg/dL 0.70-1.30 [facility] Work Phone: [phone] Comment on above: The validity of the calculated GFR & GFRAA in patients over 70 years has not been determined. Clinical correlation is essential. Serum or plasma urea nitroge n measurement (mass/volume)on 09-10-2021 Urea nitrogen [Mass/Vol] 20 mg/dL 7-18 [facility] Work Phone: [phone] Thin prep Papanicolaou smear with manual screeningon 09-10-2021 Thin prep Papanicolaou smear with manual screening 6 5-15 [facility] Work Phone: Absolute lymphocyte counton 08-12-2021 Lymphocytes Auto (Unsp spec) [#/Vol] 1.84 10*3/uL 0.83-4.51 [facility] Work Phone: [phone] Basophil percentageon 2021 Basophils/100 WBC (Bld) 0.2 % 0-[address] [facility] Work Phone: [phone] Chloride [Moles/Vol] 103 mmol/L 98-107 [facility] Work Phone: [phone] Eosinophils/100 WBC (Bld) 4.6 % 0-5 [facility] Work Phone: [phone] Glucose [Mass/Vol] 90 mg/dL 74-106 [facility] Work Phone: [phone] Neutrophils (Bld) [#/Vol] 2.4 10*3/uL 2.0-7.7 [facility] Work Phone: Neutrophils/100 WBC (Bld) 48.8 % 47-70 [facility] Work Phone: [phone] Potassium [Moles/Vol] 3.8 mmol/L 3.5-5.1 [facility] Work Phone: Sodium [Moles/Vol] 139 mmol/L 136-145 [facility] Work Phone: [phone] WBC (Bld) [#/Vol] 5.0 10*3/uL 4.4-11.0 [facility] Work Phone: Blood erythrocytes count (nu mber/volume)on 08-12-2021 RBC (Bld) [#/Vol] 4.09 10*6/uL 4.6-6.2 [facility] Work Phone: Blood hemoglobin measurement (mass/volume)on 08-12-2021 Hemoglobin (Bld) [Mass/Vol] 11.5 g/dL 13.0-16.5 [facility] Work Phone: Blood lymphocytes/100 leukoc yteson 08-12-2021 Lymphocytes/100 WBC (Bld) 36.8 % 19-41 [facility] Work Phone: Blood monocytes/100 leukocyt eson 08-12-2021 Monocytes/100 WBC (Bld) 9.4 % 0-[address] [facility] Work Phone: Blood platelet mean volumeon 08-12-2021 Platelet mean volume (Bld) [Entitic vol] 11.0 fL 6.2-12.0 [facility] Work Phone: Determination of erythrocyte mean corpuscular volume (MCV)on 08-12-2021 MCV (RBC) [Entitic vol] 87.0 fL 80-[address] [facility] Work Phone: Hematocrit Auto (Bld) [Volum e fraction]on 08-12-2021 Hematocrit (Bld) [Volume fraction] 35.6 % 40-54 [facility] Work Phone: Laboratory - Chemistry and C hemistry - challengeon 08-12-2021 CO2 [Moles/Vol] 29.0 mmol/L 21.0-32.0 [facility] Work Phone: Urea nitrogen/Creatinine [Mass ratio] 50.8 mg/mg 10-20 [facility] Work Phone: Laboratory - Hematology and Cell countson 08-12-2021 Erythrocyte distribution width (RBC) [Entitic vol] 44.2 fL 35.1-43.9 [facility] Work Phone: Erythrocyte distribution width (RBC) [Ratio] 14.1 % 11.6-14.6 [facility] Work Phone: Immature granulocytes/100 WBC (Bld) 0.200 % 0.0-0.9 [facility] Work Phone: Comment on above: IG% - Immature Granu locytes (promyelocytes, myelocytes and metamyelocytes) > 1% indicates that a LEFT SHIFT is Present. MCH (RBC) [Entitic mass] 28.1 pg 27.0-32.0 [facility] Work Phone: Nucleated RBC/100 WBC (Bld) [Ratio] 0 % 0-5 [facility] Work Phone: MCHC Auto (RBC) [Mass/Vol]on 08-12-2021 MCHC (RBC) [Mass/Vol] 32.3 g/dL 32-36 [facility] Work Phone: No Panel Informationon 08-12 Estimated GFR (MDRD) Amer 405 mL/min >60 [facility] Work Phone: Comment on above: GFR Calc Estimated GFR (MDRD) Non-Af Amer 334 mL/min >60 [facility] Work Phone: Comment on above: Non- GFR Calc Platelets bldon 08-12-2021 Platelets (Bld) [#/Vol] 151 10*3/uL 150-450 [facility] Work Phone: Serum or plasma calcium jacinta urement (mass/volume)on 08-12-2021 Calcium [Mass/Vol] 9.0 mg/dL 8.5-10.1 [facility] Work Phone: Serum or plasma creatinine m easurement (mass/volume)on 08-12-2021 Creatinine [Mass/Vol] 0.32 mg/dL 0.70-1.30 [facility] Work Phone: Comment on above: The validity of the calculated GFR & GFRAA in patients over 70 years has not been determined. Clinical correlation is essential. Serum or plasma urea nitroge n measurement (mass/volume)on 08-12-2021 Urea nitrogen [Mass/Vol] 16 mg/dL 7-18 [facility] Work Phone: Thin prep Papanicolaou smear with manual screeningon 08-12-2021 Thin prep Papanicolaou smear with manual screening 7 5-15 [facility] Work Phone: Absolute lymphocyte counton 07-11-2021 Lymphocytes Auto (Unsp spec) [#/Vol] 2.56 10*3/uL 0.83-4.51 [facility] Work Phone: Basophil percentageon 2021 Basophils/100 WBC (Bld) 0.4 % 0-[address] [facility] Work Phone: [phone] Chloride [Moles/Vol] 105 mmol/L 98-107 [facility] Work Phone: [phone] Eosinophils/100 WBC (Bld) 5.9 % 0-5 [facility] Work Phone: Glucose [Mass/Vol] 85 mg/dL 74-106 [facility] Work Phone: [phone] Neutrophils (Bld) [#/Vol] 2.1 10*3/uL 2.0-7.7 [facility] Work Phone: [phone] Neutrophils/100 WBC (Bld) 38.0 % 47-70 [facility] Work Phone: [phone] Potassium [Moles/Vol] 3.7 mmol/L 3.5-5.1 [facility] Work Phone: [phone] Sodium [Moles/Vol] 139 mmol/L 136-145 [facility] Work Phone: [phone] WBC (Bld) [#/Vol] 5.6 10*3/uL 4.4-11.0 [facility] Work Phone: Blood erythrocytes count (nu mber/volume)on 07-11-2021 RBC (Bld) [#/Vol] 3.83 10*6/uL 4.6-6.2 [facility] Work Phone: Blood hemoglobin measurement (mass/volume)on 07-11-2021 Hemoglobin (Bld) [Mass/Vol] 10.8 g/dL 13.0-16.5 [facility] Work Phone: Blood lymphocytes/100 leukoc yteson 07-11-2021 Lymphocytes/100 WBC (Bld) 46.0 % 19-41 [facility] Work Phone: Blood monocytes/100 leukocyt eson 07-11-2021 Monocytes/100 WBC (Bld) 9.7 % 0-[address] [facility] Work Phone: Blood platelet mean volumeon 07-11-2021 Platelet mean volume (Bld) [Entitic vol] 10.9 fL 6.2-12.0 [facility] Work Phone: Determination of erythrocyte mean corpuscular volume (MCV)on 07-11-2021 MCV (RBC) [Entitic vol] 88.5 fL 80-[address] [facility] Work Phone: Hematocrit Auto (Bld) [Volum e fraction]on 07-11-2021 Hematocrit (Bld) [Volume fraction] 33.9 % 40-54 [facility] Work Phone: Laboratory - Chemistry and C hemistry - challengeon 07-11-2021 CO2 [Moles/Vol] 28.0 mmol/L 21.0-32.0 [facility] Work Phone: Urea nitrogen/Creatinine [Mass ratio] 79.4 mg/mg 12-11 [facility] Work Phone: Laboratory - Hematology and Cell countson 07-11-2021 Erythrocyte distribution width (RBC) [Entitic vol] 44.5 fL 35.1-43.9 [facility] Work Phone: Erythrocyte distribution width (RBC) [Ratio] 13.7 % 11.6-14.6 [facility] Work Phone: Immature granulocytes/100 WBC (Bld) 0.000 % 0.0-0.9 [facility] Work Phone: Comment on above: IG% - Immature Granu locytes (promyelocytes, myelocytes and metamyelocytes) > 1% indicates that a LEFT SHIFT is Present. MCH (RBC) [Entitic mass] 28.2 pg 27.0-32.0 [facility] Work Phone: Nucleated RBC/100 WBC (Bld) [Ratio] 0 % 0-5 [facility] Work Phone: MCHC Auto (RBC) [Mass/Vol]on 07-11-2021 MCHC (RBC) [Mass/Vol] 31.9 g/dL 32-36 [facility] Work Phone: No Panel Informationon 07-11 Estimated GFR (MDRD) Amer 470 mL/min >60 [facility] Work Phone: Comment on above: GFR Calc Estimated GFR (MDRD) Non-Af Amer 388 mL/min >60 [facility] Work Phone: Comment on above: Non- GFR Calc Platelets bldon 07-11-2021 Platelets (Bld) [#/Vol] 163 10*3/uL 150-450 [facility] Work Phone: Serum or plasma calcium jacinta urement (mass/volume)on 07-11-2021 Calcium [Mass/Vol] 8.3 mg/dL 8.5-10.1 [facility] Work Phone: Serum or plasma creatinine m easurement (mass/volume)on 07-11-2021 Creatinine [Mass/Vol] 0.28 mg/dL 0.70-1.30 [facility] Work Phone: Comment on above: The validity of the calculated GFR & GFRAA in patients over 70 years has not been determined. Clinical correlation is essential. Serum or plasma urea nitroge n measurement (mass/volume)on 07-11-2021 Urea nitrogen [Mass/Vol] 22 mg/dL 7-18 [facility] Work Phone: Thin prep Papanicolaou smear with manual screeningon 07-11-2021 Thin prep Papanicolaou smear with manual screening 6 5-15 [facility] Work Phone: Absolute lymphocyte counton 06-11-2021 Lymphocytes Auto (Unsp spec) [#/Vol] 2.71 10*3/uL 0.83-4.51 [facility] Work Phone: Basophil percentageon 2021 Basophils/100 WBC (Bld) 0.5 % 0-[address] [facility] Work Phone: Chloride [Moles/Vol] 103 mmol/L 98-107 [facility] Work Phone: Eosinophils/100 WBC (Bld) 5.6 % 0-5 [facility] Work Phone: Glucose [Mass/Vol] 82 mg/dL 74-106 [facility] Work Phone: Neutrophils (Bld) [#/Vol] 2.6 10*3/uL 2.0-7.7 [facility] Work Phone: Neutrophils/100 WBC (Bld) 41.2 % 47-70 [facility] Work Phone: Potassium [Moles/Vol] 4.1 mmol/L 3.5-5.1 [facility] Work Phone: Sodium [Moles/Vol] 140 mmol/L 136-145 [facility] Work Phone: WBC (Bld) [#/Vol] 6.3 10*3/uL 4.4-11.0 [facility] Work Phone: Blood erythrocytes count (nu mber/volume)on 06-11-2021 RBC (Bld) [#/Vol] 4.05 10*6/uL 4.6-6.2 [facility] Work Phone: Blood hemoglobin measurement (mass/volume)on 06-11-2021 Hemoglobin (Bld) [Mass/Vol] 11.4 g/dL 13.0-16.5 [facility] Work Phone: Blood lymphocytes/100 leukoc yteson 06-11-2021 Lymphocytes/100 WBC (Bld) 43.0 % 19-41 [facility] Work Phone: Blood monocytes/100 leukocyt eson 06-11-2021 Monocytes/100 WBC (Bld) 9.5 % 0-[address] [facility] Work Phone: Blood platelet mean volumeon 06-11-2021 Platelet mean volume (Bld) [Entitic vol] 10.4 fL 6.2-12.0 [facility] Work Phone: Determination of erythrocyte mean corpuscular volume (MCV)on 06-11-2021 MCV (RBC) [Entitic vol] 87.2 fL 80-[address] [facility] Work Phone: Hematocrit Auto (Bld) [Volum e fraction]on 06-11-2021 Hematocrit (Bld) [Volume fraction] 35.3 % 40-54 [facility] Work Phone: Laboratory - Chemistry and C hemistry - challengeon 06-11-2021 CO2 [Moles/Vol] 32.0 mmol/L 21.0-32.0 [facility] Work Phone: Urea nitrogen/Creatinine [Mass ratio] 71.4 mg/mg 10-20 [facility] Work Phone: Laboratory - Hematology and Cell countson 06-11-2021 Erythrocyte distribution width (RBC) [Entitic vol] 44.3 fL 35.1-43.9 [facility] Work Phone: Erythrocyte distribution width (RBC) [Ratio] 14.0 % 11.6-14.6 [facility] Work Phone: Immature granulocytes/100 WBC (Bld) 0.200 % 0.0-0.9 [facility] Work Phone: Comment on above: IG% - Immature Granu locytes (promyelocytes, myelocytes and metamyelocytes) > 1% indicates that a LEFT SHIFT is Present. MCH (RBC) [Entitic mass] 28.1 pg 27.0-32.0 [facility] Work Phone: Nucleated RBC/100 WBC (Bld) [Ratio] 0 % 0-5 [facility] Work Phone: MCHC Auto (RBC) [Mass/Vol]on 06-11-2021 MCHC (RBC) [Mass/Vol] 32.3 g/dL 32-36 [facility] Work Phone: No Panel Informationon 06-11 Estimated GFR (MDRD) Amer 492 mL/min >60 [facility] Work Phone: Comment on above: GFR Calc Estimated GFR (MDRD) Non-Af Amer 407 mL/min >60 [facility] Work Phone: Comment on above: Non- GFR Calc Platelets bldon 06-11-2021 Platelets (Bld) [#/Vol] 185 10*3/uL 150-450 [facility] Work Phone: Serum or plasma calcium jacinta urement (mass/volume)on 06-11-2021 Calcium [Mass/Vol] 8.7 mg/dL 8.5-10.1 [facility] Work Phone: Serum or plasma creatinine m easurement (mass/volume)on 06-11-2021 Creatinine [Mass/Vol] 0.27 mg/dL 0.70-1.30 [facility] Work Phone: Comment on above: The validity of the calculated GFR & GFRAA in patients over 70 years has not been determined. Clinical correlation is essential. Serum or plasma urea nitroge n measurement (mass/volume)on 06-11-2021 Urea nitrogen [Mass/Vol] 19 mg/dL 7-18 [facility] Work Phone: [phone] Thin prep Papanicolaou smear with manual screeningon 06-11-2021 Thin prep Papanicolaou smear with manual screening 5 5-15 [facility] Work [phone] Absolute lymphocyte counton 05-19-2021 Lymphocytes Auto (Unsp spec) [#/Vol] 2.08 10*3/uL 0.83-4.51 [facility] Work Phone: Basophil percentageon 2021 Basophils/100 WBC (Bld) 0.5 % 0-[address] [facility] Work Phone: [phone] Chloride [Moles/Vol] 104 mmol/L 98-107 [facility] Work Phone: [phone] Eosinophils/100 WBC (Bld) 9.4 % 0-5 [facility] Work Phone: [phone] Glucose [Mass/Vol] 98 mg/dL 74-106 [facility] Work Phone: [phone] Neutrophils (Bld) [#/Vol] 3.2 10*3/uL 2.0-7.7 [facility] Work Phone: [phone] Neutrophils/100 WBC (Bld) 49.4 % 47-70 [facility] Work Phone: [phone] Potassium [Moles/Vol] 4.2 mmol/L 3.5-5.1 [facility] Work Phone: [phone] Sodium [Moles/Vol] 136 mmol/L 136-145 [facility] Work Phone: WBC (Bld) [#/Vol] 6.4 10*3/uL 4.4-11.0 [facility] Work Phone: [phone] Blood erythrocytes count (nu mber/volume)on 05-19-2021 RBC (Bld) [#/Vol] 4.21 10*6/uL 4.6-6.2 [facility] Work Phone: [phone] Blood hemoglobin measurement (mass/volume)on 05-19-2021 Hemoglobin (Bld) [Mass/Vol] 11.7 g/dL 13.0-16.5 [facility] Work Phone: Blood lymphocytes/100 leukoc yteson 05-19-2021 Lymphocytes/100 WBC (Bld) 32.4 % 19-41 [facility] Work Phone: Blood monocytes/100 leukocyt eson 05-19-2021 Monocytes/100 WBC (Bld) 8.1 % 0-[address] [facility] Work Phone: Blood platelet adequacy dete ction by light microscopyon 05-19-2021 Platelets LM Ql (Bld) SLT DEC ADEQ [facility] Work Phone: Blood platelet mean volumeon 05-19-2021 Platelet mean volume (Bld) [Entitic vol] 10.3 fL 6.2-12.0 [facility] Work Phone: Determination of erythrocyte mean corpuscular volume (MCV)on 05-19-2021 MCV (RBC) [Entitic vol] 86.7 fL 80-[address] [facility] Work Phone: Hematocrit Auto (Bld) [Volum e fraction]on 05-19-2021 Hematocrit (Bld) [Volume fraction] 36.5 % 40-54 [facility] Work Phone: Laboratory - Chemistry and C hemistry - challengeon 05-19-2021 CO2 [Moles/Vol] 26.0 mmol/L 21.0-32.0 [facility] Work Phone: Urea nitrogen/Creatinine [Mass ratio] 32.7 mg/mg 10-20 [facility] Work Phone: Laboratory - Hematology and Cell countson 05-19-2021 Anisocytosis Ql (Bld) RARE [facility] Work Phone: Erythrocyte distribution width (RBC) [Entitic vol] 44.8 fL 35.1-43.9 [facility] Work Phone: Erythrocyte distribution width (RBC) [Ratio] 14.2 % 11.6-14.6 [facility] Work Phone: Immature granulocytes/100 WBC (Bld) 0.200 % 0.0-0.9 [facility] Work Phone: Comment on above: IG% - Immature Granu locytes (promyelocytes, myelocytes and metamyelocytes) > 1% indicates that a LEFT SHIFT is Present. MCH (RBC) [Entitic mass] 27.8 pg 27.0-32.0 [facility] Work Phone: Nucleated RBC/100 WBC (Bld) [Ratio] 0 % 0-5 [facility] Work Phone: MCHC Auto (RBC) [Mass/Vol]on 05-19-2021 MCHC (RBC) [Mass/Vol] 32.1 g/dL 32-36 [facility] Work Phone: No Panel Informationon 05-19 Estimated Creatinine Clearance Calc 189.56 ml/min [facility] Work Phone: Estimated GFR (MDRD) Amer 340 mL/min >60 [facility] Work Phone: Comment on above: GFR Calc Estimated GFR (MDRD) Non-Af Amer 281 mL/min >60 [facility] Work Phone: Comment on above: Non- GFR Calc Platelets bldon 05-19-2021 Platelets (Bld) [#/Vol] 134 10*3/uL 150-450 [facility] Work Phone: RBC morphologyon 05-19-2021 RBC morphology finding Nom (Bld) N CHROM NORMAL NORM C&C [facility] Work Phone: Serum or plasma calcium jacinta urement (mass/volume)on 05-19-2021 Calcium [Mass/Vol] 8.8 mg/dL 8.5-10.1 [facility] Work Phone: Serum or plasma creatinine m easurement (mass/volume)on 05-19-2021 Creatinine [Mass/Vol] 0.37 mg/dL 0.70-1.30 [facility] Work Phone: Comment on above: The validity of the calculated GFR & GFRAA in patients over 70 years has not been determined. Clinical correlation is essential. Serum or plasma urea nitroge n measurement (mass/volume)on 05-19-2021 Urea nitrogen [Mass/Vol] 12 mg/dL 7-18 [facility] Work Phone: Thin prep Papanicolaou smear with manual screeningon 05-19-2021 Thin prep Papanicolaou smear with manual screening 6 5-15 [facility] Work Phone: Absolute lymphocyte counton 05-13-2021 Lymphocytes Auto (Unsp spec) [#/Vol] 3.26 10*3/uL 0.83-4.51 [facility] Work Phone: Basophil percentageon 2021 Basophils/100 WBC (Bld) 0.1 % 0-[address] [facility] Work Phone: Chloride [Moles/Vol] 108 mmol/L 98-107 [facility] Work Phone: Eosinophils/100 WBC (Bld) 6.0 % 0-5 [facility] Work Phone: Glucose [Mass/Vol] 107 mg/dL 74-106 [facility] Work Phone: Comment on above: Fasting Glucose resu lt from 100 to 125 mg/dL suggests IMPAIRED HOMEOSTASIS per A.D.A. criteria. Neutrophils (Bld) [#/Vol] 2.9 10*3/uL 2.0-7.7 [facility] Work Phone: Neutrophils/100 WBC (Bld) 39.4 % 47-70 [facility] Work Phone: [phone] Potassium [Moles/Vol] 3.8 mmol/L 3.5-5.1 [facility] Work Phone: Sodium [Moles/Vol] 140 mmol/L 136-145 [facility] Work Phone: WBC (Bld) [#/Vol] 7.3 10*3/uL 4.4-11.0 [facility] Work Phone: Blood erythrocytes count (nu mber/volume)on 05-13-2021 RBC (Bld) [#/Vol] 4.06 10*6/uL 4.6-6.2 [facility]: Blood hemoglobin measurement (mass/volume)on 05-13-2021 Hemoglobin (Bld) [Mass/Vol] 11.4 g/dL 13.0-16.5 [facility] Work Phone: Blood lymphocytes/100 leukoc yteson 05-13-2021 Lymphocytes/100 WBC (Bld) 44.6 % 19-41 [facility] Work Phone: Blood monocytes/100 leukocyt eson 05-13-2021 Monocytes/100 WBC (Bld) 9.8 % 0-[address] [facility] Work Phone: Blood platelet mean volumeon 05-13-2021 Platelet mean volume (Bld) [Entitic vol] 10.6 fL 6.2-12.0 [facility] Work Phone: Determination of erythrocyte mean corpuscular volume (MCV)on 05-13-2021 MCV (RBC) [Entitic vol] 87.4 fL 80-[address] [facility] Work Phone: Hematocrit Auto (Bld) [Volum e fraction]on 05-13-2021 Hematocrit (Bld) [Volume fraction] 35.5 % 40-54 [facility] Work Phone: Laboratory - Chemistry and C hemistry - challengeon 05-13-2021 CO2 [Moles/Vol] 29.0 mmol/L 21.0-32.0 [facility] Work Phone: Urea nitrogen/Creatinine [Mass ratio] 46.0 mg/mg 10-20 [facility] Work Phone: Laboratory - Hematology and Cell countson 05-13-2021 Erythrocyte distribution width (RBC) [Entitic vol] 45.3 fL 35.1-43.9 [facility] Work Phone: Erythrocyte distribution width (RBC) [Ratio] 14.2 % 11.6-14.6 [facility] Work Phone: Immature granulocytes/100 WBC (Bld) 0.100 % 0.0-0.9 [facility] Work Phone: Comment on above: IG% - Immature Granu locytes (promyelocytes, myelocytes and metamyelocytes) > 1% indicates that a LEFT SHIFT is Present. MCH (RBC) [Entitic mass] 28.1 pg 27.0-32.0 [facility] Work Phone: Nucleated RBC/100 WBC (Bld) [Ratio] 0.3 % 0-5 [facility] Work Phone: MCHC Auto (RBC) [Mass/Vol]on 05-13-2021 MCHC (RBC) [Mass/Vol] 32.1 g/dL 32-36 [facility] Work Phone: No Panel Informationon 05-13 Estimated GFR (MDRD) Amer 389 mL/min >60 [facility] Work Phone: Comment on above: GFR Calc Estimated GFR (MDRD) Non-Af Amer 322 mL/min >60 [facility] Work Phone: Comment on above: Non- GFR Calc Platelets bldon 05-13-2021 Platelets (Bld) [#/Vol] 170 10*3/uL 150-450 [facility] Work Phone: Serum or plasma calcium jacinta urement (mass/volume)on 05-13-2021 Calcium [Mass/Vol] 8.9 mg/dL 8.5-10.1 [facility] Work Phone: Serum or plasma creatinine m easurement (mass/volume)on 03-22-2022 Creatinine [Mass/Vol] 0.33 mg/dL 0.70-1.30 [facility] Work Phone: Comment on above: The validity of the calculated GFR & GFRAA in patients over 70 years has not been determined. Clinical correlation is essential. Serum or plasma urea nitroge n measurement (mass/volume)on 05-13-2021 Urea nitrogen [Mass/Vol] 15 mg/dL 7-18 [facility] Work Phone: Thin prep Papanicolaou smear with manual screeningon 05-13-2021 Thin prep Papanicolaou smear with manual screening 3 5-15 [facility] Work Phone: Bronchoalveolar lavage cultu re with Gram stainon 04-28-2021 Respiratory Culture Pseudomonas aeroginosa [facility] Work Phone: Respiratory Culture Streptococcus agalactiae (B) [facility] Work Phone: Respiratory Culture Positive [facility] Work Phone: Gram stain for investigation of transfusion reactionon 04-28-2021 Microscopic observation Gram stain Nom (Unsp spec) [facility] Work Phone: Basophil percentageon 2021 Chloride [Moles/Vol] 105 mmol/L 98-107 [facility] Work Phone: Glucose [Mass/Vol] 93 mg/dL 74-106 [facility] Work Phone: Potassium [Moles/Vol] 4.0 mmol/L 3.5-5.1 [facility] Work Phone: Sodium [Moles/Vol] 139 mmol/L 136-145 [facility] Work Phone: WBC (Bld) [#/Vol] 6.8 10*3/uL 4.4-11.0 [facility] Work Phone: Blood erythrocytes count (nu mber/volume)on 04-21-2021 RBC (Bld) [#/Vol] 4.12 10*6/uL 4.6-6.2 [facility] Work [facility]: Blood hemoglobin measurement (mass/volume)on 04-21-2021 Hemoglobin (Bld) [Mass/Vol] 12.2 g/dL 13.0-16.5 [facility] Work Phone: Blood platelet mean volumeon 04-21-2021 Platelet mean volume (Bld) [Entitic vol] 11.3 fL 6.2-12.0 [facility] Work Phone: Determination of erythrocyte mean corpuscular volume (MCV)on 04-21-2021 MCV (RBC) [Entitic vol] 86.9 fL 80-[address] [facility] Work Phone: Hematocrit Auto (Bld) [Volum e fraction]on 04-21-2021 Hematocrit (Bld) [Volume fraction] 35.8 % 40-54 [facility] Work Phone: Laboratory - Chemistry and C hemistry - challengeon 04-21-2021 CO2 [Moles/Vol] 29.0 mmol/L 21.0-32.0 [facility] Work Phone: Urea nitrogen/Creatinine [Mass ratio] 59.4 mg/mg 10-20 [facility] Work Phone: Laboratory - Hematology and Cell countson 04-21-2021 Erythrocyte distribution width (RBC) [Entitic vol] 43.7 fL 35.1-43.9 [facility] Work Phone: Erythrocyte distribution width (RBC) [Ratio] 13.9 % 11.6-14.6 [facility] Work Phone: MCH (RBC) [Entitic mass] 29.6 pg 27.0-32.0 [facility] Work Phone: MCHC Auto (RBC) [Mass/Vol]on 04-21-2021 MCHC (RBC) [Mass/Vol] 34.1 g/dL 32-[address] [facility] Work Phone: No Panel Informationon 04-21 Estimated GFR (MDRD) Amer 424 mL/min >60 [facility] Work Phone: Comment on above: GFR Calc Estimated GFR (MDRD) Non-Af Amer 350 mL/min >60 [facility] Work Phone: Comment on above: Non- GFR Calc Platelets bldon 04-21-2021 Platelets (Bld) [#/Vol] 185 10*3/uL 150-450 [facility] Work Phone: Serum or plasma calcium jacinta urement (mass/volume)on 04-21-2021 Calcium [Mass/Vol] 8.6 mg/dL 8.5-10.1 [facility] Work Phone: Serum or plasma creatinine m easurement (mass/volume)on 04-21-2021 Creatinine [Mass/Vol] 0.30 mg/dL 0.70-1.30 [facility] Work Phone: Comment on above: The validity of the calculated GFR & GFRAA in patients over 70 years has not been determined. Clinical correlation is essential. Serum or plasma urea nitroge n measurement (mass/volume)on 04-21-2021 Urea nitrogen [Mass/Vol] 18 mg/dL 7-18 [facility] Work Phone: Thin prep Papanicolaou smear with manual screeningon 04-21-2021 Thin prep Papanicolaou smear with manual screening 5 5-15 [facility] Work Phone: Basophil percentageon 2021 Chloride [Moles/Vol] 103 mmol/L 98-107 [facility] Work Phone: Glucose [Mass/Vol] 90 mg/dL 74-106 [facility] Work Phone: Potassium [Moles/Vol] 3.7 mmol/L 3.5-5.1 [facility] Work Phone: Sodium [Moles/Vol] 137 mmol/L 136-145 [facility] Work Phone: WBC (Bld) [#/Vol] 5.6 10*3/uL 4.4-11.0 [facility] Work Phone: Blood erythrocytes count (nu mber/volume)on 03-25-2021 RBC (Bld) [#/Vol] 4.03 10*6/uL 4.6-6.2 [facility] Work Phone: Blood hemoglobin measurement (mass/volume)on 03-25-2021 Hemoglobin (Bld) [Mass/Vol] 11.5 g/dL 13.0-16.5 [facility] Work Phone: Blood platelet mean volumeon 03-25-2021 Platelet mean volume (Bld) [Entitic vol] 10.5 fL 6.2-12.0 [facility] Work Phone: Determination of erythrocyte mean corpuscular volume (MCV)on 03-25-2021 MCV (RBC) [Entitic vol] 86.8 fL 80-[address] [facility] Work Phone: Hematocrit Auto (Bld) [Volum e fraction]on 03-25-2021 Hematocrit (Bld) [Volume fraction] 35.0 % 40-54 [facility] Work Phone: Laboratory - Chemistry and C hemistry - challengeon 03-25-2021 CO2 [Moles/Vol] 28.0 mmol/L 21.0-32.0 [facility] Work Phone: Urea nitrogen/Creatinine [Mass ratio] 54.3 mg/mg 10-20 [facility] Work Phone: Laboratory - Hematology and Cell countson 03-25-2021 Erythrocyte distribution width (RBC) [Entitic vol] 44.0 fL 35.1-43.9 [facility] Work Phone: Erythrocyte distribution width (RBC) [Ratio] 13.7 % 11.6-14.6 [facility] Work Phone: MCH (RBC) [Entitic mass] 28.5 pg 27.0-32.0 [facility] Work Phone: MCHC Auto (RBC) [Mass/Vol]on 03-25-2021 MCHC (RBC) [Mass/Vol] 32.9 g/dL 32-36 [facility] Work Phone: No Panel Informationon 03-25 Estimated GFR (MDRD) Amer 359 mL/min >60 [facility] Work Phone: Comment on above: GFR Calc Estimated GFR (MDRD) Non-Af Amer 297 mL/min >60 [facility] Work Phone: Comment on above: Non- GFR Calc Platelets bldon 03-25-2021 Platelets (Bld) [#/Vol] 175 10*3/uL 150-450 [facility] Work Phone: Serum or plasma calcium jacinta urement (mass/volume)on 03-25-2021 Calcium [Mass/Vol] 8.2 mg/dL 8.5-10.1 [facility] Work Phone: Serum or plasma creatinine m easurement (mass/volume)on 03-25-2021 Creatinine [Mass/Vol] 0.35 mg/dL 0.70-1.30 [facility] Work Phone: Comment on above: The validity of the calculated GFR & GFRAA in patients over 70 years has not been determined. Clinical correlation is essential. Serum or plasma urea nitroge n measurement (mass/volume)on 03-25-2021 Urea nitrogen [Mass/Vol] 19 mg/dL 7-18 [facility] Work Phone: Thin prep Papanicolaou smear with manual screeningon 03-25-2021 Thin prep Papanicolaou smear with manual screening 6 5-15 [facility] Work Phone: Basophil percentageon 2021 Chloride [Moles/Vol] 104 mmol/L 98-107 [facility] Work Phone: Glucose [Mass/Vol] 130 mg/dL 74-106 [facility] Work Phone: Comment on above: Fasting Glucose resu lt greater than or equal to 126 mg/dL suggests DIABETES MELLITUS per A.D.A. criteria.Please note revised GLUCOSE reference range effective 2017. Potassium [Moles/Vol] 3.2 mmol/L 3.5-5.[address] [facility] Work Phone: Sodium [Moles/Vol] 139 mmol/L 136-145 [facility] Work Phone: WBC (Bld) [#/Vol] 5.2 10*3/uL 4.4-11.0 [facility] Work Phone: Blood erythrocytes count (nu mber/volume)on 02-24-2021 RBC (Bld) [#/Vol] 3.88 10*6/uL 4.6-6.2 [facility] Work [facility]: Blood hemoglobin measurement (mass/volume)on 02-24-2021 Hemoglobin (Bld) [Mass/Vol] 10.8 g/dL 13.0-16.5 [facility] Work Phone: Blood platelet mean volumeon 02-24-2021 Platelet mean volume (Bld) [Entitic vol] 10.7 fL 6.2-12.0 [facility] Work Phone: Determination of erythrocyte mean corpuscular volume (MCV)on 02-24-2021 MCV (RBC) [Entitic vol] 87.4 fL 80-[address] [facility] Work Phone: Hematocrit Auto (Bld) [Volum e fraction]on 02-24-2021 Hematocrit (Bld) [Volume fraction] 33.9 % 40-54 [facility] Work Phone: Laboratory - Chemistry and C hemistry - challengeon 02-24-2021 CO2 [Moles/Vol] 26.0 mmol/L 21.0-32.0 [facility] Work Phone: Urea nitrogen/Creatinine [Mass ratio] 49.8 mg/mg 10-20 [facility] Work Phone: Laboratory - Hematology and Cell countson 02-24-2021 Erythrocyte distribution width (RBC) [Entitic vol] 45.6 fL 35.1-43.9 [facility] Work Phone: Erythrocyte distribution width (RBC) [Ratio] 14.3 % 11.6-14.6 [facility] Work Phone: MCH (RBC) [Entitic mass] 27.8 pg 27.0-32.0 [facility] Work Phone: MCHC Auto (RBC) [Mass/Vol]on 02-24-2021 MCHC (RBC) [Mass/Vol] 31.9 g/dL 32-36 [facility] Work Phone: No Panel Informationon 02-24 Estimated GFR (MDRD) Amer 463 mL/min >60 [facility] Work Phone: Comment on above: GFR Calc Estimated GFR (MDRD) Non-Af Amer 382 mL/min >60 [facility] Work Phone: Comment on above: Non- GFR Calc Platelets bldon 02-24-2021 Platelets (Bld) [#/Vol] 175 10*3/uL 150-450 [facility] Work Phone: Serum or plasma calcium jacinta urement (mass/volume)on 02-24-2021 Calcium [Mass/Vol] 8.3 mg/dL 8.5-10.1 [facility] Work Phone: Serum or plasma creatinine m easurement (mass/volume)on 02-24-2021 Creatinine [Mass/Vol] 0.28 mg/dL 0.70-1.30 [facility] Work Phone: Comment on above: The validity of the calculated GFR & GFRAA in patients over 70 years has not been determined. Clinical correlation is essential. Serum or plasma urea nitroge n measurement (mass/volume)on 02-24-2021 Urea nitrogen [Mass/Vol] 14 mg/dL 7-18 [facility] Work Phone: Thin prep Papanicolaou smear with manual screeningon 02-24-2021 Thin prep Papanicolaou smear with manual screening 9 5-15 [facility] Work Phone: Basophil percentageon 2020 Chloride [Moles/Vol] 103 mmol/L 98-107 [facility] Work Phone: Glucose [Mass/Vol] 89 mg/dL 74-106 [facility] Work Phone: Comment on above: Please note revised GLUCOSE reference range effective 2017. Potassium [Moles/Vol] 4.2 mmol/L 3.5-5.1 [facility] Work Phone: Sodium [Moles/Vol] 138 mmol/L 136-145 [facility] Work Phone: WBC (Bld) [#/Vol] 7.3 10*3/uL 4.4-11.0 [facility] Work Phone: Blood erythrocytes count (nu mber/volume)on 01-28-2021 RBC (Bld) [#/Vol] 4.27 10*6/uL 4.6-6.2 [facility] Work Phone: Blood hemoglobin measurement (mass/volume)on 01-28-2021 Hemoglobin (Bld) [Mass/Vol] 11.7 g/dL 13.0-16.5 [facility] Work Phone: Blood platelet mean volumeon 01-28-2021 Platelet mean volume (Bld) [Entitic vol] 10.6 fL 6.2-12.0 [facility] Work Phone: Determination of erythrocyte mean corpuscular volume (MCV)on 01-28-2021 MCV (RBC) [Entitic vol] 85.2 fL 80-[address] [facility] Work Phone: Hematocrit Auto (Bld) [Volum e fraction]on 01-28-2021 Hematocrit (Bld) [Volume fraction] 36.4 % 40-54 [facility] Work Phone: Laboratory - Chemistry and C hemistry - challengeon 01-28-2021 CO2 [Moles/Vol] 29.0 mmol/L 21.0-32.0 [facility] Work Phone: Urea nitrogen/Creatinine [Mass ratio] 41.8 mg/mg 10-20 [facility] Work Phone: Laboratory - Hematology and Cell countson 01-28-2021 Erythrocyte distribution width (RBC) [Entitic vol] 44.3 fL 35.1-43.9 [facility] Work Phone: Erythrocyte distribution width (RBC) [Ratio] 14.3 % 11.6-14.6 [facility] Work Phone: MCH (RBC) [Entitic mass] 27.4 pg 27.0-32.0 [facility] Work Phone: MCHC Auto (RBC) [Mass/Vol]on 01-28-2021 MCHC (RBC) [Mass/Vol] 32.1 g/dL 32-36 [facility] Work Phone: No Panel Informationon 01-28 Estimated GFR (MDRD) Amer 378 mL/min >60 [facility] Work Phone: Comment on above: GFR Calc Estimated GFR (MDRD) Non-Af Amer 312 mL/min >60 [facility] Work Phone: Comment on above: Non- GFR Calc Platelets bldon 01-28-2021 Platelets (Bld) [#/Vol] 233 10*3/uL 150-450 [facility] Work Phone: Serum or plasma calcium jacinta urement (mass/volume)on 01-28-2021 Calcium [Mass/Vol] 8.8 mg/dL 8.5-10.1 [facility] Work Phone: Serum or plasma creatinine m easurement (mass/volume)on 01-28-2021 Creatinine [Mass/Vol] 0.34 mg/dL 0.70-1.30 [facility] Work Phone: Comment on above: The validity of the calculated GFR & GFRAA in patients over 70 years has not been determined. Clinical correlation is essential. Serum or plasma urea nitroge n measurement (mass/volume)on 01-28-2021 Urea nitrogen [Mass/Vol] 14 mg/dL 7-18 [facility] Work Phone: Thin prep Papanicolaou smear with manual screeningon 01-28-2021 Thin prep Papanicolaou smear with manual screening 6 5- [facility] Work Phone: Office Visit: Peg changeon 0 10-09-2016 Documentation of current medications (procedure) Done Invalid Interpretation Code [facility] [employer] Work Phone: Fall risk assessment No Invalid Interpretation Code [facility] [employer] Work Phone: Tobacco smoking status NHIS Never Invalid Interpretation Code [facility] [employer] Work Phone: Tobacco use [facility] Never smoker Invalid Interpretation Code [facility] [employer] Work Phone: Lab Report: BNP,B-Type NATRI URETIC PEPTIDEon 08-28-2016 BNP 9.5 pg/mL Invalid Interpretation Code 0-100 [facility] Work Phone: [phone] Lab Report: Basic Metabolic Profile (BMP)on 08-28-2016 Anion gap 4 mmol/L Low 5-15 [facility] Work Phone: [phone] BUN/Creatinine Ratio 76.9 RATIO High 10-20 [facility] Work Phone: [phone] Calcium 8.7 mg/dL Invalid Interpretation Code 8.5-10.1 [facility] Work Phone: [phone] Chloride 106 mmol/L Invalid Interpretation Code 98-107 [facility] Work Phone: [phone] CO2 31.0 mmol/L Invalid Interpretation Code 21.0-32.0 [facility] Work Phone: [phone] Creatinine 0.32 mg/dL Low 0.70-1.30 [facility] Work Phone: eGFR (non-black) 401 mL/min/{1.73_m2} Invalid Interpretation Code >60 [facility] Work Phone: [phone] eGFR (non-black) 332 mL/min/{1.73_m2} Invalid Interpretation Code >60 [facility] Work Phone: [phone] Glucose 114 mg/dL High 70-110 [facility] Work Phone: [phone] Potassium 3.6 mmol/L Invalid Interpretation Code 3.5-5.1 [facility] Work Phone: [phone] Sodium 141 mmol/L Invalid Interpretation Code 136-145 [facility] Work Phone: [phone] Urea nitrogen 25 mg/dL High 7-18 [facility] Work Phone: [phone] Office Visiton 08-28-2016 Documentation of current medications (procedure) Done Invalid Interpretation Code [facility] Work Phone: [phone] Fall risk assessment No Invalid Interpretation Code [facility] Work Phone: [phone] 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 Erythrocytes (RBC) 3.93 10*6/uL Low [facility] Work Phone: [phone] Hematocrit (HCT) 35.4 % Low [facility] Work Phone: [phone] Hemoglobin (HGB) 11.3 g/dL Low [facility] Work Phone: [phone] MCH 28.8 pg Invalid Interpretation Code [facility] Work Phone: [phone] MCHC 31.9 g/dL Low [facility] Work Phone: [phone] MCV 90.1 fL Invalid Interpretation Code [facility] Work Phone: [phone] Platelets 89 10*3/mm3 Low [facility] Work Phone: [phone] PMV by Garrett 12.6 fL High [facility] Work Phone: [phone] RDW-CA 15.7 % High [facility] Work Phone: [phone] WBC (Leukocytes) 4.1 10*3/uL Low [facility] Work Phone: [phone] Office Visit: S/P [place] menton 06-15-2016 Documentation of current medications (procedure) Done Invalid Interpretation Code [facility] Work Phone: [phone] Fall risk assessment No Invalid Interpretation Code [facility] Work Phone: [phone] Tobacco smoking status NHIS Never Invalid Interpretation Code [facility] Work Phone: [phone] Tobacco use [facility] Never smoker Invalid Interpretation Code [facility] Work Phone: [phone] Lab Report: CBC-Complete Blo od Cnt No Diffon 05-28-2016 Erythrocytes (RBC) 3.67 10*6/uL Low 4.6-6.[address] [facility] [address] [facility] Work Phone: [phone] Hematocrit (HCT) 32.9 % Low 40-54 [facility] Work Phone: [phone] Hemoglobin (HGB) 10.9 g/dL Low 13.0-16.5 [facility] Work Phone: [phone] MCH 29.7 pg Invalid Interpretation Code 27.0-32.0 [facility] Work Phone: [phone] MCHC 33.1 G/GL Invalid Interpretation Code 32-36 [facility] Work Phone: [phone] MCV 89.6 fL Invalid Interpretation Code 80-94 [facility] Work Phone: [phone] Platelets 115 10*3/mm3 Low 150-450 [facility] Work Phone: [phone] PMV by Garrett 11.5 fL Invalid Interpretation Code 6.2-12.0 [facility] Work Phone: [phone] RDW-CA 14.9 % High 11.6-14.6 [facility] Work Phone: [phone] red blood cell distribution width, size density 48.2 fL High 35.1-43.9 [facility] Work Phone: [phone] WBC (Leukocytes) 5.4 10*3/uL Invalid Interpretation Code 4.4-11.0 [facility] Work Phone: [phone] Lab Report: Partial Thrombop last Timeon 05-28-2016 aPTT 24.9 s Invalid Interpretation Code 24.1-36.2 [employer] Work Phone: [phone] Lab Report: Prothrombin Time w/INRon 05-28-2016 Coagulation tissue factor induced in platelet poor plasma 12.7 s Invalid Interpretation Code 11.7-14.9 [facility] Work Phone: [phone] INR in blood by coagulation 1.0 {INR} Invalid Interpretation Code [facility] Work Phone: [phone] Microbiology: Culture, Wound on 01-10-2016 wound culture Vancomycin $ 1 S Invalid Interpretation Code [facility] Work Phone: [phone] Lab Report: Basic Metabolic Profile (BMP)on 09-19-2015 Anion gap 10 mmol/L Invalid Interpretation Code 5-15 [facility] Work Phone: [phone] BUN/Creatinine Ratio 10.9 RATIO Invalid Interpretation Code 10-20 [employer] Phone: [phone] Calcium 8.2 mg/dL Low 8.5-10.1 [facility] Work Phone: [phone] Chloride 109 mmol/L High 98-107 [facility] Work Phone: [phone] CO2 23.0 mmol/L Invalid Interpretation Code 21.0-32.0 [facility] Work Phone: [phone] Creatinine 361.97 mL/min Invalid Interpretation Code [facility] Work Phone: [phone] Creatinine 0.28 mg/dL Low 0.70-1.30 [facility] Work Phone: [phone] eGFR (non-black) 403 mL/min/{1.73_m2} Invalid Interpretation Code >60 [employer] Work Phone: [phone] eGFR (non-black) 487 mL/min/{1.73_m2} Invalid Interpretation Code >60 [facility] Work Phone: [phone] Glucose 66 mg/dL Low 70-110 [facility] Work Phone: [phone] Potassium 3.1 mmol/L Low 3.5-5.1 [facility] Work Phone: [phone] Sodium 142 mmol/L Invalid Interpretation Code 136-145 [facility] Work Phone: [phone] Urea nitrogen 3 mg/dL Low 7-18 [facility] Work Phone: [phone] Lab Report: CBC W/Diff, Auto matedon 09-19-2015 Basophils/100 leukocytes 0.2 % Invalid Interpretation Code 0-1 [facility] Work Phone: [phone] Eosinophils/100 leukocytes 1.8 % Invalid Interpretation Code 0-5 [facility] Work Phone: [phone] immature granulocytes, percentage of total cells, blood 0.200 % Invalid Interpretation Code 0.0-0.9 [facility] Work Phone: [phone] Lymphocytes 2.07 X10 3/UL Invalid Interpretation Code 0.83-4.51 [facility] Work Phone: [phone] Lymphocytes/100 leukocytes 40.9 % Invalid Interpretation Code 19-41 [facility] Work Phone: [phone] Monocytes/100 leukocytes 13.8 % High 0-10 [facility] Work Phone: [phone] neutrophil count, blood 2.2 X10 3/UL Invalid Interpretation Code 2.0-7.7 [facility] Work Phone: [phone] Neutrophils/100 leukocytes 43.1 % Low 47-70 [facility] Work Phone: [phone] 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 Smoking cessation education (procedure) yes Invalid Interpretation Code [facility] Work Phone: [phone] Bronchoalveolar lavage cultu re with Gram stain Respiratory Culture Pseudomonas aeroginosa [facility] Work Phone: Respiratory Culture Streptococcus agalactiae (B) [facility] Work Phone: Respiratory Culture Positive [facility] Work Phone: Gram stain for investigation of transfusion reaction Microscopic observation Gram stain Nom (Unsp spec) [facility] Work Phone: Laboratory - Microbiology an d Antimicrobial susceptibility Respiratory pathogens DNA and RNA 12b panel YAYO+probe (Unsp spec) [facility] Work Phone: No Panel Information Respiratory Panel (PCR) [facility] Work Phone: SARS-CoV-2 & FLU Antigen (Rapid) [facility] Work Phone: Vital Signs Date Time Vital Sign Value Performing Clinician Facility 11-09-2024 12:00-0400 Diastolic blood pressure 87 mm[Hg] Dr. Chente Conn MD Work Phone: [facility] 11-09-2024 12:00-0400 Heart rate 74 /min Dr. Chente Conn MD Work Phone: [facility] 11-09-2024 12:00-0400 Respiratory rate 10 /min Dr. Chente Conn MD Work Phone: [facility] 11-09-2024 12:00-0400 SaO2% (BldA) [Mass fraction] 98 % Dr. Chente Conn MD Work Phone: [facility] 11-09-2024 12:00-0400 Systolic blood pressure 133 mm[Hg] Dr. Chente Conn MD Work Phone: [facility] 11-09-2024 11:44-0400 Body temperature 98.5 [degF] Dr. Chente Conn MD Work Phone: [facility] 11-09-2024 08:03-0400 Body height 152.[address] Chente Conn MD Work Phone: [facility] 11-09-2024 08:03-0400 Body mass index (BMI) [Ratio] 42 kg/m2 Dr. Chente Conn MD Work Phone: [facility] 11-09-2024 08:03-0400 Body weight 97.[address] Chente Conn MD Work Phone: [facility] 11-09-2024 08:03-0400 Inhaled oxygen flow rate 5 L/min Dr. Chente Conn MD Work Phone: [facility] 09-06-2024 09:06-0400 Inhaled oxygen concentration 35 % Dr. Chente Conn MD Work Phone: [facility] 09-06-2024 08:21-0400 Body temperature 98.5 [degF] Dr. Chente Conn MD Work Phone: 1(983)170-844074 [place] [address] 09-06-2024 08:21-0400 Diastolic blood pressure 89 mm[Hg] Dr. Chente Conn MD Work Phone: 5(887)922-122074 [place] [address] 09-06-2024 08:21-0400 Heart rate 94 /min Dr. Chente Conn MD Work Phone: 9(232)444-198074 [place] [address] 09-06-2024 08:21-0400 Respiratory rate 18 /min Dr. Chente Conn MD Work Phone: 3(439)011-299274 [place] [address] 09-06-2024 08:21-0400 SaO2% (BldA) [Mass fraction] 96 % Dr. Chente Conn MD Work Phone: 0(597)093-763574 [place] [address] 09-06-2024 08:21-0400 Systolic blood pressure 137 mm[Hg] Dr. Chente Conn MD Work Phone: 6(943)221-997374 [place] [address] 09-06-2024 06:40-0400 Inhaled oxygen flow rate 10 L/min Dr. Chente Conn MD Work Phone: 2(998)412-015774 [place] [address] 09-05-2024 19:10-0400 Inhaled oxygen flow rate 10 L/min Dr. Chente Conn MD Work Phone: 8(548)094-945174 [place] [address] 09-05-2024 04:13-0400 Body mass index (BMI) [Ratio] 36.5 kg/m2 Dr. Chente Conn MD Work Phone: 9(922)776-909374 [place] [address] 09-05-2024 04:13-0400 Body weight 84.[address] Chente Conn MD Work Phone: 4(693)065-026774 [place] [address] 09-04-2024 11:00-0400 Body height 152.[address] Chente Conn MD Work Phone: 7(732)526-355474 [place] [address] 06-15-2024 13:47-0400 Body height 152.[address] Chente Conn MD Work Phone: [facility] 06-15-2024 13:47-0400 Body mass index (BMI) [Ratio] 33.2 kg/m2 Dr. Chente Conn MD Work Phone: [facility] 06-15-2024 13:47-0400 Body weight 77.[address] Chente Conn MD Work Phone: [facility] 06-15-2024 13:47-0400 Diastolic blood pressure 59 mm[Hg] Dr. Chente Conn MD Work Phone: 9(081)053-086448 [address] 06-15-2024 13:47-0400 Heart rate 58 /min Dr. Chente Conn MD Work Phone: 4(639)864-946763 [place] [address] 06-15-2024 13:47-0400 Inhaled oxygen flow rate 2 L/min Dr. Chente Conn MD Work Phone: 2(974)080-783963 [place] [address] 06-15-2024 13:47-0400 SaO2% (BldA) [Mass fraction] 95 % Dr. Chente Conn MD Work Phone: 9(062)369-232863 [place] [address] 06-15-2024 13:47-0400 Systolic blood pressure 87 mm[Hg] Dr. Chente Conn MD Work Phone: 7(116)012-013148 [address] 04-04-2024 08:14-0500 Body mass index (BMI) [Ratio] 33.2 kg/m2 Dr. Chente Conn MD Work Phone: [facility] 04-04-2024 08:14-0500 Body temperature 97.1 [degF] Dr. Chente Conn MD Work Phone: 0(679)093-434648 [address] 04-04-2024 08:14-0500 Body weight 77.[address] Chente Conn MD Work Phone: 7(544)621-668063 [place] [address] 04-04-2024 08:14-0500 Diastolic blood pressure 78 mm[Hg] Dr. Chente Conn MD Work Phone: 1(691)105-578363 [place] [address] 04-04-2024 08:14-0500 Heart rate 73 /min Dr. Chente Conn MD Work Phone: [facility] 04-04-2024 08:14-0500 Inhaled oxygen flow rate 2 L/min Dr. Chente Conn MD Work Phone: [facility] 04-04-2024 08:14-0500 Respiratory rate 20 /min Dr. Chente Conn MD Work Phone: 7(117)943-842763 [place] [address] 04-04-2024 08:14-0500 SaO2% (BldA) [Mass fraction] 97 % Dr. Chente Conn MD Work Phone: 3(857)190-066963 [place] [address] 04-04-2024 08:14-0500 Systolic blood pressure 124 mm[Hg] Dr. Chente Conn MD Work Phone: 8(678)050-536748 [address] 2024 22:05-0500 Body temperature 97.9 [degF] Dr. Chente Conn MD Work Phone: 9(394)182-905863 [place] [address] 2024 22:05-0500 Diastolic blood pressure 106 mm[Hg] Dr. Chente Conn MD Work Phone: 3(323)221-085463 [place] [address] 2024 22:05-0500 Heart rate 72 /min Dr. Chente Conn MD Work Phone: 7(945)250-159263 [place] [address] 2024 22:05-0500 Respiratory rate 20 /min Dr. Chente Conn MD Work Phone: 2(559)551-240863 [place] [address] 2024 22:05-0500 SaO2% (BldA) [Mass fraction] 98 % Dr. Chente Conn MD Work Phone: 5(402)053-660063 [place] [address] 2024 22:05-0500 Systolic blood pressure 155 mm[Hg] Dr. Chente Conn MD Work Phone: 0(761)166-200963 [place] [address] 2024 22:00-0500 Inhaled oxygen flow rate 4 L/min Dr. Chente Conn MD Work Phone: 7(678)048-941463 [place] [address] 2024 18:08-0500 Inhaled oxygen concentration 4 % Dr. Chente Conn MD Work Phone: [facility] 2024 16:08-0500 Body height 152.[address] Chente Conn MD Work Phone: 0(302)762-360063 [place] [address] 2024 16:08-0500 Body mass index (BMI) [Ratio] 36.2 kg/m2 Dr. Chente Conn MD Work Phone: 8(477)645-242363 [place] [address] 2024 16:08-0500 Body weight 84.[address] Chente Conn MD Work Phone: 3(202)717-228963 [place] [address] 04-13-2023 16:06-0500 Body temperature 98.6 [degF] Dr. Chente Conn Work Phone: 5(680)336-211863 [place] [address] 04-13-2023 16:06-0500 Diastolic blood pressure 78 mm[Hg] Dr. Chente Conn Work Phone: 7(871)192-342763 [place] [address] 04-13-2023 16:06-0500 Heart rate 91 /min Dr. Chente Conn Work Phone: 0(445)640-854063 [place] [address] 04-13-2023 16:06-0500 Respiratory rate 17 /min Dr. Chente Conn Work Phone: 3(448)671-386163 [place] [address] 04-13-2023 16:06-0500 SaO2% (BldA) [Mass fraction] 96 % Dr. Chente Conn Work Phone: [facility] 04-13-2023 16:06-0500 Systolic blood pressure 101 mm[Hg] Dr. Chente Conn Work Phone: 3(236)374-156363 [place] [address] 04-13-2023 12:40-0500 Inhaled oxygen flow rate 3.5 L/min Dr. Chente Conn Work Phone: 4(843)646-495563 [place] [address] 04-13-2023 12:11-0500 Body height 152.[address] Chente Conn Work Phone: 8(063)839-449363 [place] [address] 04-13-2023 12:11-0500 Body mass index (BMI) [Ratio] 34.2 kg/m2 Dr. Chente Conn Work Phone: [facility] 04-13-2023 12:11-0500 Body weight 79.[address] Chente Conn Work Phone: [facility] 03-25-2023 09:30-0500 Inhaled oxygen flow rate 5 L/min Dr. Chente Conn Work Phone: [facility] 03-25-2023 09:17-0500 Body temperature 97.3 [degF] Dr. Chente Conn Work Phone: [facility] 03-25-2023 09:17-0500 Diastolic blood pressure 78 mm[Hg] Dr. Chente Conn Work Phone: [facility] 03-25-2023 09:17-0500 Heart rate 57 /min Dr. Chente Conn Work Phone: [facility] 03-25-2023 09:17-0500 Respiratory rate 13 /min Dr. Chente Conn Work Phone: [facility] 03-25-2023 09:17-0500 SaO2% (BldA) [Mass fraction] 97 % Dr. Chente Conn Work Phone: [facility] 03-25-2023 09:17-0500 Systolic blood pressure 121 mm[Hg] Dr. Chente Conn Work Phone: [facility] 03-25-2023 03:46-0500 Body mass index (BMI) [Ratio] 34.3 kg/m2 Dr. Chente Conn Work Phone: [facility] 03-25-2023 03:46-0500 Body weight 79.[address] Chente Conn Work Phone: [facility] 03-24-2023 09:21-0500 Body height 152.[address] Chente Conn Work Phone: [facility] 03-23-2023 16:45-0500 Body temperature 97.6 [degF] Dr. Chente Conn Work Phone: [facility] 03-23-2023 16:45-0500 Diastolic blood pressure 81 mm[Hg] Dr. Chente Conn Work Phone: [facility] 03-23-2023 16:45-0500 Heart rate 112 /min Dr. Chente Conn Work Phone: [facility] 03-23-2023 16:45-0500 Respiratory rate 20 /min Dr. Chente Conn Work Phone: [facility] 03-23-2023 16:45-0500 Systolic blood pressure 124 mm[Hg] Dr. Chente Conn Work Phone: [facility] 03-23-2023 15:25-0500 SaO2% (BldA) [Mass fraction] 95 % Dr. Chente Conn Work Phone: [facility] 03-23-2023 12:12-0500 Body height 152.[address] Chente Conn Work Phone: [facility] 03-23-2023 12:12-0500 Body mass index (BMI) [Ratio] 34.8 kg/m2 Dr. Chente Conn Work Phone: [facility] 03-23-2023 12:12-0500 Body weight 80.[address] Chente Conn Work Phone: [facility] 03-02-2023 09:13-0500 Body height 152.[address] Chente Conn Work Phone: [facility] 03-02-2023 09:13-0500 Body mass index (BMI) [Ratio] 29.2 kg/m2 Dr. Chente Conn Work Phone: [facility] 03-02-2023 09:13-0500 Body temperature 97.3 [degF] Dr. Chente Conn Work Phone: [facility] 03-02-2023 09:13-0500 Body weight 68.[address] Chente Conn Work Phone: [facility] 03-02-2023 09:13-0500 Diastolic blood pressure 74 mm[Hg] Dr. Chente Conn Work Phone: [facility] 03-02-2023 09:13-0500 Heart rate 77 /min Dr. Chente Conn Work Phone: [facility] 03-02-2023 09:13-0500 Inhaled oxygen flow rate 2 L/min Dr. Chente Conn Work Phone: [facility] 03-02-2023 09:13-0500 Respiratory rate 20 /min Dr. Chente Conn Work Phone: [facility] 03-02-2023 09:13-0500 SaO2% (BldA) [Mass fraction] 97 % Dr. Chente Conn Work Phone: [facility] 03-02-2023 09:13-0500 Systolic blood pressure 104 mm[Hg] Dr. Chente Conn Work Phone: [facility] 01-16-2023 23:36-0500 Diastolic blood pressure 78 mm[Hg] Dr. Chente Conn Work Phone: [facility] 01-16-2023 23:36-0500 Heart rate 91 /min Dr. Chente Conn Work Phone: [facility] 01-16-2023 23:36-0500 Respiratory rate 16 /min Dr. Chente Conn Work Phone: [facility] 01-16-2023 23:36-0500 SaO2% (BldA) [Mass fraction] 98 % Dr. Chente Conn Work Phone: [facility] 01-16-2023 23:36-0500 Systolic blood pressure 127 mm[Hg] Dr. Chente Conn Work Phone: [facility] 01-16-2023 21:05-0500 Inhaled oxygen flow rate 4 L/min Dr. Chente Conn Work Phone: [facility] 01-16-2023 19:17-0500 Body height 152.[address] Chente Conn Work Phone: [facility] 01-16-2023 19:17-0500 Body mass index (BMI) [Ratio] 34.4 kg/m2 Dr. Chente Conn Work Phone: [facility] 01-16-2023 19:17-0500 Body temperature 97.3 [degF] Dr. Chente Conn Work Phone: [facility] 01-16-2023 19:17-0500 Body weight [address] Chente Conn Work Phone: [facility] 12-13-2022 14:22-0400 Inhaled oxygen concentration 30 % Dr. Chente Conn Work Phone: [facility] 12-13-2022 08:25-0400 Inhaled oxygen flow rate 4.5 L/min Dr. Chente Conn Work Phone: [facility] 12-13-2022 08:25-0400 SaO2% (BldA) [Mass fraction] 97 % Dr. Chente Conn Work Phone: [facility] 12-13-2022 07:56-0400 Body temperature 98.6 [degF] Dr. Chente Conn Work Phone: [facility] 12-13-2022 07:56-0400 Diastolic blood pressure 98 mm[Hg] Dr. Chente Conn Work Phone: [facility] 12-13-2022 07:56-0400 Heart rate 89 /min Dr. Chente Conn Work Phone: [facility] 12-13-2022 07:56-0400 Respiratory rate 18 /min Dr. Chente Conn Work Phone: [facility] 12-13-2022 07:56-0400 Systolic blood pressure 150 mm[Hg] Dr. Chente Conn Work Phone: [facility] 12-11-2022 13:56-0400 Body temperature 98.2 [degF] Dr. Chente Conn Work Phone: [facility] 12-11-2022 13:56-0400 Diastolic blood pressure 40 mm[Hg] Dr. Chente Conn Work Phone: [facility] 12-11-2022 13:56-0400 Heart rate 81 /min Dr. Chente Conn Work Phone: [facility] 12-11-2022 13:56-0400 Respiratory rate 18 /min Dr. Chente Conn Work Phone: [facility] 12-11-2022 13:56-0400 SaO2% (BldA) [Mass fraction] 100 % Dr. Chente Conn Work Phone: [facility] 12-11-2022 13:56-0400 Systolic blood pressure 147 mm[Hg] Dr. Chente Conn Work Phone: [facility] 12-11-2022 13:28-0400 Inhaled oxygen concentration 30 % Dr. Chente Conn Work Phone: [facility] 12-11-2022 12:44-0400 Inhaled oxygen flow rate 8 L/min Dr. Chente Conn Work Phone: [facility] 12-10-2022 16:06-0400 Body height 152.[address] Chente Conn Work Phone: [facility] 12-10-2022 16:06-0400 Body weight 77.[address] Chente Conn Work Phone: [facility] 12-10-2022 14:53-0400 Body mass index (BMI) [Ratio] 33.3 kg/m2 Dr. Chente Conn Work Phone: [facility] 12-10-2022 14:36-0400 Heart rate 112 /min Dr. Chente Conn Work Phone: [facility] 12-10-2022 14:36-0400 Respiratory rate 26 /min Dr. Chente Conn Work Phone: [facility] 12-10-2022 14:36-0400 SaO2% (BldA) [Mass fraction] 98 % Dr. Chente Conn Work Phone: [facility] 12-10-2022 12:40-0400 Body temperature 99.3 [degF] Dr. Chente Conn Work Phone: [facility] 12-10-2022 12:40-0400 Diastolic blood pressure 86 mm[Hg] Dr. Chente Conn Work Phone: [facility] 12-10-2022 12:40-0400 Systolic blood pressure 140 mm[Hg] Dr. Chente Conn Work Phone: [facility] 12-10-2022 09:37-0400 Body height 152.[address] Chente Conn Work Phone: [facility] 12-10-2022 09:37-0400 Body mass index (BMI) [Ratio] 40 kg/m2 Dr. Chente Conn Work Phone: [facility] 12-10-2022 09:37-0400 Body weight [address] Chente Conn Work Phone: [facility] 11-05-2022 14:00-0400 Inhaled oxygen concentration 28 % Dr. Chente Conn Work Phone: [facility] 11-05-2022 13:30-0400 Body temperature 97 [degF] Dr. Chente Conn Work Phone: [facility] 11-05-2022 13:30-0400 Diastolic blood pressure 93 mm[Hg] Dr. Chente Conn Work Phone: [facility] 11-05-2022 13:30-0400 Heart rate 90 /min Dr. Chente Conn Work Phone: [facility] 11-05-2022 13:30-0400 Inhaled oxygen flow rate 3 L/min Dr. Chente Conn Work Phone: [facility] 11-05-2022 13:30-0400 Respiratory rate 16 /min Dr. Chente Conn Work Phone: [facility] 11-05-2022 13:30-0400 SaO2% (BldA) [Mass fraction] 93 % Dr. Chente Conn Work Phone: [facility] 11-05-2022 13:30-0400 Systolic blood pressure 138 mm[Hg] Dr. Chente Conn Work Phone: 0(542)494-091363 [place] [address] 11-02-2022 10:44-0400 Body height 152.[address] Chente Conn Work Phone: 7(308)818-701848 [address] 11-02-2022 10:44-0400 Body weight [address] Chente Conn Work Phone: 1(688)992-761563 [place] [address] 10-28-2022 05:38-0400 Body mass index (BMI) [Ratio] 32.8 kg/m2 Dr. Chente Conn Work Phone: 7(445)544-017963 [place] [address] 09-17-2022 13:19-0400 Body height 150.[address] Chente Conn Work Phone: [facility] 09-17-2022 13:19-0400 Body mass index (BMI) [Ratio] 32.2 kg/m2 Dr. Chente Conn Work Phone: [facility] 09-17-2022 13:19-0400 Body temperature 96.6 [degF] Dr. Chente Conn Work Phone: 3(560)210-735963 [place] [address] 09-17-2022 13:19-0400 Body weight 72.[address] Chente Conn Work Phone: [facility] 09-17-2022 13:19-0400 Diastolic blood pressure 72 mm[Hg] Dr. Chente Conn Work Phone: [facility] 09-17-2022 13:19-0400 Heart rate 78 /min Dr. Chente Conn Work Phone: [facility] 09-17-2022 13:19-0400 Inhaled oxygen flow rate 2 L/min Dr. Chente Conn Work Phone: [facility] 09-17-2022 13:19-0400 Respiratory rate 20 /min Dr. Chente Conn Work Phone: [facility] 09-17-2022 13:19-0400 SaO2% (BldA) [Mass fraction] 96 % Dr. Chente Conn Work Phone: [facility] 09-17-2022 13:19-0400 Systolic blood pressure 110 mm[Hg] Dr. Chente Conn Work Phone: [facility] 06-22-2022 20:35-0400 Body temperature 97.6 [degF] Dr. Chente Conn Work Phone: [facility] 06-22-2022 20:35-0400 Diastolic blood pressure 74 mm[Hg] Dr. Chente Conn Work Phone: [facility] 06-22-2022 20:35-0400 Heart rate 90 /min Dr. Chente Conn Work Phone: [facility] 06-22-2022 20:35-0400 Respiratory rate 18 /min Dr. Chente Conn Work Phone: [facility] 06-22-2022 20:35-0400 SaO2% (BldA) [Mass fraction] 94 % Dr. Chente Conn Work Phone: [facility] 06-22-2022 20:35-0400 Systolic blood pressure 102 mm[Hg] Dr. Chente Conn Work Phone: [facility] 06-22-2022 18:20-0400 Body height 150.[address] Chente Conn Work Phone: [facility] 06-22-2022 18:20-0400 Body mass index (BMI) [Ratio] 38.7 kg/m2 Dr. Chente Conn Work Phone: [facility] 06-22-2022 18:20-0400 Body weight 87.[address] Chente Conn Work Phone: [facility] 06-22-2022 18:20-0400 Inhaled oxygen flow rate 4 L/min Dr. Chente Conn Work Phone: [facility] 06-12-2022 12:17-0400 Body temperature 97.5 [degF] Dr. Chente Conn Work Phone: [facility] 06-12-2022 12:17-0400 Diastolic blood pressure 73 mm[Hg] Dr. Chente Conn Work Phone: [facility] 06-12-2022 12:17-0400 Heart rate 64 /min Dr. Chente Conn Work Phone: [facility] 06-12-2022 12:17-0400 Respiratory rate 18 /min Dr. Chente Conn Work Phone: [facility] 06-12-2022 12:17-0400 SaO2% (BldA) [Mass fraction] 96 % Dr. Chente Conn Work Phone: [facility] 06-12-2022 12:17-0400 Systolic blood pressure 109 mm[Hg] Dr. Chente Conn Work Phone: [facility] 06-12-2022 10:38-0400 Body height 149.[address] Chente Conn Work Phone: [facility] 06-12-2022 10:38-0400 Body mass index (BMI) [Ratio] 34.2 kg/m2 Dr. Chente Conn Work Phone: [facility] 06-12-2022 10:38-0400 Body weight [address] Chente Conn Work Phone: [facility] 06-12-2022 10:38-0400 Inhaled oxygen flow rate 5 L/min Dr. Chente Conn Work Phone: [facility] 04-01-2022 09:00-0500 Body temperature 99.2 [degF] Dr. Chente Conn Work Phone: [facility] 04-01-2022 09:00-0500 Diastolic blood pressure 90 mm[Hg] Dr. Chente Conn Work Phone: 0(921)127-774463 [place] [address] 04-01-2022 09:00-0500 Heart rate 88 /min Dr. Chente Conn Work Phone: 3(371)294-575763 [place] [address] 04-01-2022 09:00-0500 Inhaled oxygen flow rate 4 L/min Dr. Chente Conn Work Phone: 1(667)725-712548 [address] 04-01-2022 09:00-0500 Respiratory rate 20 /min Dr. Chente Conn Work Phone: 9(256)257-067548 [address] 04-01-2022 09:00-0500 SaO2% (BldA) [Mass fraction] 96 % Dr. Chente Conn Work Phone: 5(022)040-135448 [address] 04-01-2022 09:00-0500 Systolic blood pressure 117 mm[Hg] Dr. Chente Conn Work Phone: 7(161)739-149863 [place] [address] 04-01-2022 04:58-0500 Body weight 76.[address] Chente Conn Work Phone: 5(352)911-616463 [place] [address] 03-31-2022 09:20-0500 Body height 151.[address] Chente Conn Work Phone: 7(412)206-072963 [place] [address] 03-24-2022 21:35-0500 Body height 151.[address] Chente Conn Work Phone: 4(262)646-213848 [address] 03-24-2022 21:35-0500 Body mass index (BMI) [Ratio] 33.8 kg/m2 Dr. Chente Conn Work Phone: 6(394)935-653548 [address] 03-24-2022 21:35-0500 Body weight 78.[address] Chente Conn Work Phone: [facility] 03-24-2022 20:54-0500 Body temperature 104 [degF] Dr. Chente Conn Work Phone: [facility] 03-24-2022 20:54-0500 Diastolic blood pressure 123 mm[Hg] Dr. Chente Conn Work Phone: [facility] 03-24-2022 20:54-0500 Heart rate 153 /min Dr. Chente Conn Work Phone: [facility] 03-24-2022 20:54-0500 Respiratory rate 44 /min Dr. Chente Conn Work Phone: [facility] 03-24-2022 20:54-0500 SaO2% (BldA) [Mass fraction] 93 % Dr. Chente Conn Work Phone: [facility] 03-24-2022 20:54-0500 Systolic blood pressure 145 mm[Hg] Dr. Chente Conn Work Phone: [facility] 03-24-2022 17:08-0500 Body height 152.[address] Chente Conn Work Phone: [facility] 03-24-2022 17:08-0500 Body mass index (BMI) [Ratio] 31.2 kg/m2 Dr. Chente Conn Work Phone: [facility] 03-24-2022 17:08-0500 Body weight 72.[address] Chente Conn Work Phone: [facility] 02-24-2022 22:38-0500 Body temperature 98.9 [degF] Dr. Chente Conn Work Phone: [facility] 02-24-2022 22:38-0500 Diastolic blood pressure 78 mm[Hg] Dr. Chente Conn Work Phone: [facility] 02-24-2022 22:38-0500 Heart rate 78 /min Dr. Chente Conn Work Phone: [facility] 02-24-2022 22:38-0500 Respiratory rate 13 /min Dr. Chente Conn Work Phone: [facility] 02-24-2022 22:38-0500 SaO2% (BldA) [Mass fraction] 95 % Dr. Chente Conn Work Phone: [facility] 02-24-2022 22:38-0500 Systolic blood pressure 127 mm[Hg] Dr. Chente Conn Work Phone: [facility] 02-24-2022 19:50-0500 Inhaled oxygen flow rate 4 L/min Dr. Chente Conn Work Phone: [facility] 02-24-2022 16:09-0500 Body height 152.[address] Chente Conn Work Phone: [facility] Work Phone: 02-24-2022 16:09-0500 Body mass index (BMI) [Ratio] 31.6 kg/m2 Dr. Chente Conn Work Phone: [facility] 02-24-2022 16:09-0500 Body weight 73.[address] Chente Conn Work Phone: [facility] 01-06-2022 13:12-0500 Body height 152.[address] Chente Conn Work Phone: [facility] Work Phone: 01-06-2022 13:12-0500 Body mass index (BMI) [Ratio] 31.2 kg/m2 Dr. Chente Conn Work Phone: [facility] 01-06-2022 13:12-0500 Body weight 72.[address] Chente Conn Work Phone: [facility] 01-06-2022 13:12-0500 Diastolic blood pressure 109 mm[Hg] Dr. Chente Conn Work Phone: [facility] 01-06-2022 13:12-0500 Heart rate 106 /min Dr. Chente Conn Work Phone: [facility] 01-06-2022 13:12-0500 Respiratory rate 18 /min Dr. Chente Conn Work Phone: [facility] 01-06-2022 13:12-0500 SaO2% (BldA) [Mass fraction] 94 % Dr. Chente Conn Work Phone: [facility] 01-06-2022 13:12-0500 Systolic blood pressure 144 mm[Hg] Dr. Chente Conn Work Phone: [facility] 12-19-2021 13:22-0400 Body height 152.[address] Chente Conn Work Phone: [facility] Work Phone: 12-19-2021 13:22-0400 Body mass index (BMI) [Ratio] 31.2 kg/m2 Dr. Chente Conn Work Phone: [facility] 12-19-2021 13:22-0400 Body temperature 95.7 [degF] Dr. Chente Conn Work Phone: [facility] 12-19-2021 13:22-0400 Body weight 72.[address] Chente Conn Work Phone: [facility] 12-19-2021 13:22-0400 Diastolic blood pressure 76 mm[Hg] Dr. Chente Conn Work Phone: [facility] 12-19-2021 13:22-0400 Heart rate 66 /min Dr. Chente Conn Work Phone: [facility] 12-19-2021 13:22-0400 Inhaled oxygen flow rate 2 L/min Dr. Chente Conn Work Phone: [facility] 12-19-2021 13:22-0400 Respiratory rate 18 /min Dr. Chente Conn Work Phone: [facility] 12-19-2021 13:22-0400 SaO2% (BldA) [Mass fraction] 94 % Dr. Chente Conn Work Phone: [facility] 12-19-2021 13:22-0400 Systolic blood pressure 110 mm[Hg] Dr. Chente Conn Work Phone: [facility] 12-05-2021 15:00-0400 Body temperature 98.2 [degF] Dr. Chente Conn Work Phone: [facility] 12-05-2021 15:00-0400 Diastolic blood pressure 95 mm[Hg] Dr. Chente Conn Work Phone: [facility] 12-05-2021 15:00-0400 Heart rate 86 /min Dr. Chente Conn Work Phone: [facility] 12-05-2021 15:00-0400 Inhaled oxygen flow rate 4 L/min Dr. Chente Conn Work Phone: [facility] 12-05-2021 15:00-0400 Respiratory rate 17 /min Dr. Chente Conn Work Phone: [facility] 12-05-2021 15:00-0400 SaO2% (BldA) [Mass fraction] 95 % Dr. Chente Conn Work Phone: [facility] 12-05-2021 15:00-0400 Systolic blood pressure 118 mm[Hg] Dr. Chente Conn Work Phone: [facility] 12-04-2021 11:44-0400 Body height 152.[address] Chente Conn Work Phone: [facility] Work Phone: 12-04-2021 11:44-0400 Body weight 74.[address] Chente Conn Work Phone: [facility] 11-30-2021 15:07-0400 Body mass index (BMI) [Ratio] 32.2 kg/m2 Dr. Chente Conn Work Phone: [facility] 11-30-2021 14:32-0400 Body temperature 97.8 [degF] Dr. Chente Conn Work Phone: [facility] Work Phone: 11-30-2021 14:32-0400 Diastolic blood pressure 69 mm[Hg] Dr. Chente Conn Work Phone: [facility] Work Phone: 11-30-2021 14:32-0400 Heart rate 76 /min Dr. Chente Conn Work Phone: [facility] Work Phone: 11-30-2021 14:32-0400 Respiratory rate 15 /min Dr. Chente Conn Work Phone: [facility] Work Phone: 11-30-2021 14:32-0400 SaO2% (BldA) [Mass fraction] 96 % Dr. Chnete Conn Work Phone: [facility] Work Phone: 11-30-2021 14:32-0400 Systolic blood pressure 112 mm[Hg] Dr. Chente Conn Work Phone: [facility] Work Phone: 11-30-2021 12:19-0400 Inhaled oxygen flow rate 4 L/min Dr. Chente Conn Work Phone: [facility] Work Phone: 11-30-2021 11:05-0400 Body height 121.[address] Chente Conn Work Phone: [facility] Work Phone: 11-30-2021 11:05-0400 Body mass index (BMI) [Ratio] 53.1 kg/m2 Dr. Chente Conn Work Phone: [facility] Work Phone: 11-30-2021 11:05-0400 Body weight [address] Chente Conn Work Phone: [facility] Work Phone: 08-19-2021 14:26-0400 Body height 152.[address] Chente Conn Work Phone: [facility] Work Phone: 08-19-2021 14:17-0400 Body mass index (BMI) [Ratio] 30.8 kg/m2 Dr. Chente Conn Work Phone: [facility] Work Phone: 08-19-2021 14:17-0400 Body temperature 97 [degF] Dr. Chente Conn Work Phone: [facility] Work Phone: 08-19-2021 14:17-0400 Body weight 71.[address] Chente Conn Work Phone: [facility] Work Phone: 08-19-2021 14:17-0400 Diastolic blood pressure 68 mm[Hg] Dr. Chente Conn Work Phone: [facility] Work Phone: 08-19-2021 14:17-0400 Heart rate 57 /min Dr. Chente Conn Work Phone: [facility] Work Phone: 08-19-2021 14:17-0400 Respiratory rate 17 /min Dr. Chente Conn Work Phone: [facility] Work Phone: 08-19-2021 14:17-0400 SaO2% (BldA) [Mass fraction] 97 % Dr. Chente Conn Work Phone: [facility] Work Phone: 08-19-2021 14:17-0400 Systolic blood pressure 110 mm[Hg] Dr. Chente Conn Work Phone: [facility] Work Phone: 07-16-2021 09:03-0400 Body height 152.[address] Chente Conn Work Phone: [facility] Work Phone: 07-16-2021 09:03-0400 Body mass index (BMI) [Ratio] 30.7 kg/m2 Dr. Chente Conn Work Phone: [facility] Work Phone: 07-16-2021 09:03-0400 Body weight 71.[address] Chente Conn Work Phone: [facility] Work Phone: 07-16-2021 09:03-0400 Diastolic blood pressure 71 mm[Hg] Dr. Chente Conn Work Phone: [facility] Work Phone: 07-16-2021 09:03-0400 Heart rate 68 /min Dr. Chente Conn Work Phone: [facility] Work Phone: 07-16-2021 09:03-0400 Respiratory rate 18 /min Dr. Chente Conn Work Phone: [facility] Work Phone: 07-16-2021 09:03-0400 SaO2% (BldA) [Mass fraction] 99 % Dr. Chente Conn Work Phone: [facility] Work Phone: 07-16-2021 09:03-0400 Systolic blood pressure 102 mm[Hg] Dr. Chente Conn Work Phone: [facility] Work Phone: 05-19-2021 21:15-0400 Diastolic blood pressure 72 mm[Hg] Dr. Chente Conn Work Phone: [facility] Work Phone: 05-19-2021 21:15-0400 Heart rate 79 /min Dr. Chente Conn Work Phone: [facility] Work Phone: 05-19-2021 21:15-0400 Respiratory rate 15 /min Dr. Chente Conn Work Phone: [facility] Work Phone: 05-19-2021 21:15-0400 SaO2% (BldA) [Mass fraction] 98 % Dr. Chente Conn Work Phone: [facility] Work Phone: 05-19-2021 21:15-0400 Systolic blood pressure 140 mm[Hg] Dr. Chente Conn Work Phone: [facility] Work Phone: 05-19-2021 18:07-0400 Body height 152.[address] Chente Conn Work Phone: [facility] Work Phone: 05-19-2021 18:07-0400 Body mass index (BMI) [Ratio] 31.8 kg/m2 Dr. Chente Conn Work Phone: [facility] Work Phone: 05-19-2021 18:07-0400 Body temperature 97.6 [degF] Dr. Chente Conn Work Phone: [facility] Work Phone: 05-19-2021 18:07-0400 Body weight [address] Chente Conn Work Phone: [facility] Work Phone: 04-15-2021 13:10-0500 Body temperature 97.2 [degF] Dr. Chente Conn Work Phone: [facility] Work Phone: 04-15-2021 13:10-0500 Body weight 72.[address] Chente Conn Work Phone: [facility] Work Phone: 04-15-2021 13:10-0500 Heart rate 85 /min Dr. Chente Conn Work Phone: [facility] Work Phone: 04-15-2021 13:10-0500 Respiratory rate 16 /min Dr. Chente Conn Work Phone: [facility] Work Phone: 04-15-2021 13:10-0500 SaO2% (BldA) [Mass fraction] 95 % Dr. Chente Conn Work Phone: [facility] Work Phone: 04-15-2021 12:10-0500 Body temperature 97.2 [degF] Dr. Chente Conn Work Phone: [facility] Work Phone: 04-15-2021 12:10-0500 Body weight 72.[address] Chente Conn Work Phone: [facility] Work Phone: 04-15-2021 12:10-0500 Heart rate 85 /min Dr. Chente Conn Work Phone: [facility] Work Phone: 04-15-2021 12:10-0500 Respiratory rate 16 /min Dr. Chente Conn Work Phone: [facility] Work Phone: 04-15-2021 12:10-0500 SaO2% (BldA) [Mass fraction] 95 % Dr. Chente Conn Work Phone: [facility] Work Phone: 03-24-2021 23:17-0500 Body mass index (BMI) [Ratio] 0 kg/m2 Dr. Chente Conn Work Phone: [facility] Work Phone: 02-21-2021 23:10-0500 Body mass index (BMI) [Ratio] 0 kg/m2 Dr. Chente Conn Work Phone: [facility] Work Phone: 01-21-2021 23:06-0500 Body mass index (BMI) [Ratio] 0 kg/m2 Dr. Chente Conn Work Phone: [facility] Work Phone: 08-28-2016 09:39-0400 BMI (Body Mass Index) 30.27 kg/m2 Harumi DeFinis [facility] Work Phone: 08-28-2016 09:39-0400 BP Diastolic 62 mm[Hg] Harumi DeFinis [facility] Work Phone: 08-28-2016 09:39-0400 BP Systolic 106 mm[Hg] Harumi DeFinis [facility] Work Phone: 08-28-2016 09:39-0400 Height 152.4 cm Harumi DeFinis [facility] Work Phone: 08-28-2016 09:39-0400 Pulse (Heart Rate) 78 /min Harumi DeFinis [facility] Work Phone: 08-28-2016 09:39-0400 Respiratory Rate 12 /min Harumi DeFinis [facility] Work Phone: 08-28-2016 09:39-0400 Weight 70.31 kg Harumi DeFinis [facility] Work Phone: 06-15-2016 11:14-0400 BP Diastolic 87 mm[Hg] Chente Lara [employer] DEV[employer] [facility] Work Phone: 06-15-2016 11:14-0400 BP Systolic 111 mm[Hg] Chente Lara [employer] DEVEL[employer] [facility] Work Phone: 06-15-2016 11:14-0400 Pulse (Heart Rate) 60 /min Chente Lara NP [facility] Work Phone: 06-15-2016 11:14-0400 Respiratory Rate 16 /min Chente Lara NP [facility] Work Phone: 01-08-2016 09:55-0500 Body Temperature 97.2 [degF] Chente Lara [employer] DEV[employer] [facility] Work Phone: Encounters Encounter Date Encounter Type Care Provider Facility Start: 01-02-2025 ambulatory [facility] Facility:[facility] Start: 01-01-2025 End: 01-01-2025 [facility] Start: 12-20-2024 ambulatory Chente Youssefyevgeniyally Facilit y:[facility] Start: 12-20-2024 End: 12-23-2024 Evaluation and management of inpatient Chente Ana Cristina Youssefallison Facility:[facility] Start: 12-18-2024 End: 12-18-2024 ambulatory Chente Conn Facility:[facility] Start: 12-04-2024 End: 12-22-2024 ambulatory [facility] Facility:[facility] Start: 11-09-2024 End: 11-09-2024 Emergency department patient visit Dr. Chente Conn MD Work Phone: -Emergency Department Work Phone: Start: 10-16-2024 End: 10-22-[address] Chente Conn MD -Laboratory Specimen Work Phone: Start: 10-16-2024 End: 10-22-[address] Chente Conn MD Work Phone: -Laboratory Specimen Start: 09-18-2024 End: 09-21-[address] Chente Conn MD -Laboratory Specimen Work Phone: Start: 09-18-2024 End: 09-21-[address] Chente Conn MD Work Phone: -Laboratory Specimen Start: 09-06-2024 Non-patient / Non-visit Dr. Torey Parry simba [facility] Work Phone: Start: 09-05-2024 Non-patient / Non-visit Dr. Torey Parry [facility] Work Phone: Start: 09-04-2024 Non-patient / Non-visit Dr. Torey Parry [facility] Work Phone: Start: 09-03-2024 Non-patient / Non-visit Dr. Radha Randle MD -[facility] Work Phone: Start: 09-03-2024 End: 09-06-2024 ambulatory [facility] Facility:[facility] Start: 09-03-2024 End: 09-06-2024 Evaluation and management of inpatient Dr. Torey James DO -Intensive Care Unit Work Phone: Start: 09-03-2024 End: 09-06-[address] Chente Conn MD Work Phone: -Intensive Care Unit Start: 08-22-2024 End: 08-22-[address] Chente Conn MD Work Phone: -Laboratory Specimen Start: 08-22-2024 End: 08-22-[address] Chente Conn MD -Laboratory Specimen Work Phone: Start: 08-22-2024 End: 08-22-2024 [facility] Start: 07-26-2024 End: 07-26-2024 ambulatory Chente Conn MD [facility] Work Phone: Start: 07-26-2024 End: 07-26-[address] Roddy Quinones MD -Radiology [place] Work Phone: Start: 07-25-2024 End: 08-21-[address] Chente Conn MD -Laboratory Specimen Work Phone: Start: 07-25-[address] Chente Conn MD -Laboratory Specimen Work Phone: Start: 07-25-2024 End: 08-21-[address] Chente Conn MD Work Phone: -Laboratory Specimen Start: 07-18-2024 End: 07-18-[address] Chente Conn MD Work Phone: [facility] Work Phone: Start: 07-18-2024 End: 07-18-[address] Matteo Posadas MD -Laboratory Specimen Work Phone: Start: 07-18-2024 End: 07-18-2024 [facility] Start: 06-26-2024 End: 06-26-[address] Chente Conn MD Work Phone: [facility] Work Phone: Start: 06-26-2024 End: 06-26-[address] Chente Conn MD -Laboratory, Specimen Work Phone: Start: 06-26-2024 End: 06-26-2024 [facility] Start: 06-15-2024 End: 06-15-[address] Matteo Posadas MD -[place] Work Phone: Start: 06-15-2024 End: 06-15-2024 amb[facility] Start: 05-29-2024 End: 06-21-[address] Chente Conn MD -Laboratory, Specimen Work Phone: Start: 05-29-2024 End: 06-21-2024 ambulatory [facility] Ana Cristina Conn Facility:[facility] Start: 05-09-2024 End: 05-09-[address] Chente Conn MD Work Phone: [facility] Work Phone: Start: 05-09-2024 End: 05-09-2024 Patient encounter procedure Valarie ORELLANA -Laboratory, Specimen Work Phone: Start: 05-09-2024 End: 05-09-2024 ambulatory Valarie Kee Facility:[facility] Start: 05-01-2024 End: 05-22-[address] Chente Conn MD -Laboratory, Specimen Work Phone: Start: 05-01-[address] Chente Conn MD -Laboratory, Specimen Work Phone: Start: 05-01-2024 End: 05-22-[address] Chente Conn MD Work Phone: [facility] Work Phone: Start: 04-27-2024 ambulatory Chente Conn Facilit y:[facility] Start: 04-25-2024 End: 04-25-[address] Chente Conn MD -Outpatient Bone Densitometry Work Phone: Start: 04-25-2024 End: 04-25-2024 ambulatory Chente Conn Facility:[facility] Start: 04-04-2024 End: 04-04-2024 Patient encounter procedure SRINIVAS Dior -[place] Work Phone: Start: 04-04-2024 End: 04-04-2024 ambulatory Chente Conn Facility:[facility] Start: 04-03-2024 End: 04-21-[address] Chente Conn MD -Laboratory, Specimen Work Phone: Start: 04-03-2024 End: 04-21-2024 ambulatory Chente Conn Facility:[facility] Start: 03-16-2024 End: 03-16-[address] Roddy Quinones MD -Radiology, [facility] Work Phone: Start: 03-16-2024 End: 03-16-2024 ambulatory Roddy Quinones Facility:[facility] Start: 03-08-2024 End: 03-08-[address] Chente Conn MD -Laboratory, Specimen Work Phone: Start: 03-08-2024 End: 03-08-2024 ambulatory Chente Conn Facility:[facility] Start: 02-24-2024 End: 03-24-2024 ambulatory Chente Conn Facility:[facility] Start: 02-24-2024 End: 03-24-[address] Chente Conn MD -Laboratory, Specimen Work Phone: Start: 2024 ambulatory Racquel Moss Facility:[facility] Start: 2024 Non-patient / Non-visit Dr. Torey rangel MD -[facility] Start: 2024 End: 2024 Emergency department patient visit Dr. Racquel Moss DO -Emergency Department Work Phone: Start: 01-27-2024 End: 02-22-[address] Chente Conn MD -Laboratory, Specimen Work Phone: Start: 01-27-2024 End: 02-22-2024 ambulatory Chente Conn Facility:[facility] Start: 01-14-2024 End: 01-14-2024 [facility] Start: 06-14-2023 End: 06-14-[address] Chente Conn Work Phone: [facility] Work Phone: Start: 06-14-2023 End: 06-14-[address] [facility] Start: 05-17-2023 End: 05-17-[address] Chente Conn Work Phone: [facility] Work Phone: Start: 05-17-2023 End: 05-17-[address] [facility] Start: 04-19-2023 End: 04-19-[address] Chente Conn Work Phone: [facility] Work Phone: Start: 04-19-2023 End: 04-19-[address] [facility] Start: 04-13-2023 End: 04-13-2023 Emergency department patient visit [facility] Start: 03-25-2023 Non-patient / Non-visit Dr. Areli Conn Work Phone: [facility] Work Phone: Start: 03-25-2023 Non-patient / Non-visit Dr. Areli Conn Work Phone: [facility] Start: 03-25-2023 Dr. Chente canales Work Phone: [facility] Start: 03-24-2023 Non-patient / Non-visit Dr. Areli Conn Work Phone: [facility] Work Phone: Start: 03-24-2023 Dr. Chente canales Work Phone: [facility] Work Phone: Start: 03-24-2023 Non-patient / Non-visit Dr. Areli Conn Work Phone: [facility] Start: 03-24-2023 Dr. Chente canales Work Phone: [facility] Start: 03-23-2023 Non-patient / Non-visit Dr. Areli Conn Work Phone: [facility] Work Phone: Start: 03-23-2023 End: 03-25-2023 Evaluation and management of inpatient [facility]. Chente [facility] Start: 03-23-2023 End: 03-25-2023 Dr. Chente Conn Work Phone: [facility] Work Phone: Start: 03-02-2023 End: 03-02-[address] [facility] Work Phone: Start: 03-02-2023 End: 03-02-2023 Dr. Chen[facility] Work Phone: Start: 03-01-2023 End: 03-01-[address] Chente Conn Work Phone: [facility] Work Phone: Start: 03-01-2023 End: 03-01-[address] [facility] Start: 03-01-2023 End: 03-01-2023 Dr. Chen[facility] Start: 02-03-2023 End: 02-03-[address] Chente Conn Work Phone: [facility] Work Phone: Start: 02-03-2023 End: 02-03-[address] Chen[facility] Start: 02-03-2023 End: 02-03-2023 Dr. Chen[facility] Start: 01-16-2023 End: 01-16-2023 Emergency department patient [facility] Chente [facility] Start: 01-16-2023 End: 01-16-2023 Dr. Chente Conn Work Phone: [facility]-Emergency Department Work Phone: Start: 01-04-2023 End: 01-04-[address] Chente Conn Work Phone: [facility]-Laboratory, Specimen Work Phone: Start: 01-04-2023 End: 01-04-2023 Dr. Chente Conn Work Phone: [facility]-Laboratory, Specimen Work Phone: Start: 12-13-2022 Non-patient / Non-visit Dr. Areli Conn Work Phone: [facility] Work Phone: Start: 12-13-2022 Dr. Chente canales Work Phone: [facility] Work Phone: Start: 12-12-2022 Non-patient / Non-visit Dr. Areli Conn Work Phone: [facility] Start: 12-12-2022 Dr. Chente canales Work Phone: [facility] Start: 12-12-2022 Non-patient / Non-visit Dr. Areli Conn Work Phone: [facility] Work Phone: Start: 12-12-2022 Dr. Chente canales Work Phone: [facility] Work Phone: Start: 12-11-2022 Non-patient / Non-visit Dr. Areli Conn Work Phone: [facility] Work Phone: Start: 12-11-2022 Dr. Chente canales Work Phone: [facility] Work Phone: Start: 12-11-2022 Non-patient / Non-visit Dr. Areli Conn Work Phone: [facility] Start: 12-11-2022 Dr. Chente canales Work Phone: [facility] Start: 12-10-2022 End: 12-13-2022 Evaluation and management of inpatient [facility] Chente [facility] Start: 12-10-2022 End: 12-13-2022 Dr. Chen[facility] Start: 12-07-2022 End: 12-07-[address] Chente Conn Work Phone: [facility] Work Phone: Start: 12-07-2022 End: 12-07-[address] [facility] Start: 12-07-2022 End: 12-07-2022 Dr. Chen[facility] Start: 11-12-2022 End: 11-12-[address] [facility] Start: 11-05-2022 Non-patient / Non-visit Dr. Areli Conn Work Phone: [facility] Work Phone: Start: 11-04-2022 Non-patient / Non-visit Dr. Areli Conn Work Phone: [facility] Work Phone: Start: 11-03-2022 Non-patient / Non-visit Dr. Areli Conn Work Phone: [facility] Work Phone: Start: 11-02-2022 Non-patient / Non-visit Dr. Areli Conn Work Phone: [facility] Work Phone: Start: 11-01-2022 Non-patient / Non-visit Dr. Areli Conn Work Phone: [facility] Work Phone: Start: 10-31-2022 Non-patient / Non-visit Dr. Areli Conn Work Phone: [facility] Work Phone: Start: 10-30-2022 Non-patient / Non-visit Dr. Areli Conn Work Phone: [facility] Work Phone: Start: 10-29-2022 Non-patient / Non-visit Dr. Areli Conn Work Phone: [facility] Work Phone: Start: 10-28-2022 Non-patient / Non-visit Dr. Areli Conn Work Phone: [facility] Work Phone: Start: 10-27-2022 Non-patient / Non-visit Dr. Areli Conn Work Phone: [facility] Work Phone: Start: 10-27-2022 End: 11-05-2022 Evaluation and management of inpatient Dr. Chente Conn Work Phone: [facility]-Intensive Care Unit Work Phone: Start: 10-14-2022 End: 10-14-[address] Chente Conn Work Phone: [facility] Work Phone: Start: 10-14-2022 End: 10-14-[address] [facility] Start: 09-17-2022 End: 09-17-[address] Chente Conn Work Phone: [facility]-Pulmonary Medicine [facility] Work Phone: Start: 09-14-2022 End: 09-14-[address] Chente Conn Work Phone: [facility] Work Phone: Start: 09-14-2022 End: 09-14-[address] [facility] Work [facility] Start: 08-17-2022 End: 08-17-2022 ambulatory [facility] Work Phone: Start: 08-17-2022 End: 08-17-2022 [facility] Start: 07-22-2022 End: 07-22-2022 [facility] Start: 06-30-2022 Telephone encounter [facility] Work Phone: Colorectal Surgery Comment on above: Stoma Consult Start: 06-22-2022 End: 06-23-2022 Emergency department patient visit Dr. Chente Conn Work Phone: [facility] Work Phone: Start: 06-22-2022 End: 06-23-2022 Dr. Chente Conn Work Phone: [facility]-Emergency Department Start: 06-15-2022 End: 06-16-2022 ambulatory CHENTE PERKINS Facility:[facility] Start: 06-15-2022 End: 06-15-2022 Nursing evaluation of patient and report [facility] Work Phone: Colorectal Surgery Comment on above: Attention to colosto my (HCC) (Primary Dx) Start: 06-12-2022 End: 06-12-2022 Emergency department patient visit Dr. Chente Conn Work Phone: [facility]-Emergency Department Start: 06-12-2022 End: 06-12-2022 Dr. Chente Conn Work Phone: [facility]-Emergency Department Start: 06-01-2022 End: 06-21-2022 [facility] Start: 06-01-[address] Chen[facility] Conn [facility] Start: 06-01-2022 End: 06-21-2022 Dr. Chente Conn [facility] Start: 05-06-2022 End: 05-06-2022 ambulatory Yola LEAVITT Facility:[facility] Start: 05-06-2022 End: 05-06-2022 [facility] I Gregory Leavitt MD Work Phone: Colorectal Surgery Comment on above: Functional disorder of stomach (Primary Dx) Start: 05-04-2022 End: 05-22-[address] Chente Conn Work Phone: [facility] Work Phone: Start: 05-04-2022 End: 05-22-[address] Chen[facility] Start: 05-04-2022 End: 05-22-2022 Dr. Chente Conn Work Phone: [phone] [place] [address]-Laboratory, Specimen Start: 04-14-2022 Telephone encounter I Gregory rothman MD Work Phone: Colorectal Surgery Comment on above: Patient Update; Radha ent Question Patient Update Start: 04-01-2022 Non-patient / Non-visit Dr. Areli Conn Work Phone: [facility] Start: 04-01-2022 Dr. Chente canales Work Phone: [facility] Start: 03-31-2022 Non-patient / Non-visit Dr. Areli Conn Work Phone: [facility] Start: 03-31-2022 Dr. Chente canales Work Phone: [facility] Start: 03-31-2022 Non-patient / Non-visit Dr. Areli Conn Work Phone: [facility] Start: 03-31-2022 Dr. Chente canales Work Phone: [facility] Start: 03-30-2022 Non-patient / Non-visit Dr. Areli Conn Work Phone: [facility] Start: 03-30-2022 Dr. Chente canales Work Phone: [facility] Start: 03-30-2022 Non-patient / Non-visit Dr. Areli Conn Work Phone: [facility] Start: 03-30-2022 Dr. Chente canales Work Phone: [facility] Start: 03-29-2022 Non-patient / Non-visit Dr. Areli Conn Work Phone: [facility] Start: 03-29-2022 Dr. Chente canales Work Phone: [facility] Start: 03-29-2022 Non-patient / Non-visit Dr. Areli Conn Work Phone: [facility] Start: 03-29-2022 Dr. Chente canales Work Phone: [facility] Start: 03-29-2022 Non-patient / Non-visit Dr. Areli Conn Work Phone: [facility] Start: 03-29-2022 Dr. Chente canales Work Phone: [facility] Start: 03-28-2022 Non-patient / Non-visit Dr. Areli Conn Work Phone: [facility] Start: 03-28-2022 Dr. Chente canales Work Phone: [facility] Start: 03-27-2022 Non-patient / Non-visit Dr. Areli Conn Work Phone: [facility] Start: 03-27-2022 Dr. Chente canales Work Phone: [facility] Start: 03-26-2022 Non-patient / Non-visit Dr. Areli Conn Work Phone: [facility] Start: 03-26-2022 Dr. Chente canales Work Phone: [facility] Start: 03-25-2022 Non-patient / Non-visit Dr. Areli Conn Work Phone: [facility] Start: 03-25-2022 Dr. Chente canales Work Phone: [facility] Start: 03-25-2022 Non-patient / Non-visit Dr. Areli Conn Work Phone: [facility] Start: 03-25-2022 Dr. Chente canales Work Phone: [facility] Start: 03-24-2022 Non-patient / Non-visit Dr. Areli Conn Work Phone: [facility] Start: 03-24-2022 End: 04-01-2022 Evaluation and management of inpatient Dr. Chente Conn Work Phone: [facility]-Int[facility] Care [facility] Start: 03-24-2022 End: 04-01-2022 Dr. Chente Conn Work Phone: [facility] Start: 03-23-2022 End: 03-24-[address] Chente Conn Work Phone: [facility] Work Phone: Start: 03-23-2022 End: 03-24-[address] Chente Conn Work Phone: [facility]-Laboratory, Specimen Start: 03-23-[address] Chente Conn Work Phone: [facility] Start: 03-23-2022 End: 03-24-2022 Dr. Chente Conn Work Phone: [facility], [facility] Start: 02-24-2022 End: 02-24-2022 Emergency department patient visit Dr. Chente Conn Work Phone: [facility]-Emergency Department Start: 02-24-2022 End: 02-24-2022 Dr. Chente Conn Work Phone: [facility]-Emergency [facility] Start: 02-06-2022 End: 02-21-[address] Chenet Conn Work Phone: [facility] Work Phone: Start: 02-06-2022 End: 02-21-[address] Chen[facility] Start: 02-06-2022 End: 02-21-2022 Dr. Chen[facility] Start: 01-06-2022 End: 01-06-[address] Chente Conn Work Phone: [facility] Start: 01-06-2022 End: 01-06-2022 Dr. Chente Conn Work Phone: [facility] Start: 01-05-2022 End: 01-21-[address] Chente Conn Work Phone: [facility] Work Phone: Start: 01-05-2022 End: 01-21-[address] Chen[facility] Start: 01-05-2022 End: 01-21-2022 Dr. Chen[facility] Start: 12-19-2021 End: 12-19-[address] [facility] Start: 12-19-2021 End: 12-19-2021 Dr. Chen[facility] Conn [facility] Start: 12-08-2021 End: 12-22-[address] Chente Conn Work Phone: [facility] Work Phone: Start: 12-08-2021 End: 12-22-[address] Chente Conn [facility] Start: 12-08-2021 End: 12-22-2021 Dr. Chente Conn Work Phone: [facility]-Laboratory, Specimen Start: 12-05-2021 Non-patient / Non-visit Dr. Areli Conn Work Phone: [facility] Start: 12-05-2021 Dr. Chente canales Work Phone: [facility] Start: 12-04-2021 Non-patient / Non-visit Dr. Areli Conn Work Phone: [facility] Start: 12-04-2021 Dr. Chente canales Work Phone: [facility] Start: 12-03-2021 Non-patient / Non-visit Dr. Areli Conn Work Phone: [facility] Start: 12-03-2021 Dr. Chente canales Work Phone: [facility] Start: 12-03-2021 Non-patient / Non-visit Dr. Areli Conn Work Phone: [facility] Start: 12-03-2021 Dr. Chente canales Work Phone: [facility] Start: 12-02-2021 Non-patient / Non-visit Dr. Areli Conn Work Phone: [facility] Start: 12-02-2021 Dr. Chente canales Work Phone: [facility] Start: 12-01-2021 Non-patient / Non-visit Dr. Areli Conn Work Phone: [facility] Start: 12-01-2021 Dr. Chente canales Work Phone: [facility] Start: 12-01-2021 Non-patient / Non-visit Dr. Areli Conn Work Phone: [facility] Start: 12-01-2021 Dr. Chente canales Work Phone: [facility] Start: 12-01-2021 End: 12-05-2021 Non-patient / Non-visit Dr. Chente Conn Work Phone: [facility] Start: 11-30-2021 End: 12-05-2021 Evaluation and management of inpatient [facility] Chen[facility] Start: 11-30-2021 End: 12-05-2021 Dr. [facility] Start: 11-03-2021 End: 11-21-[address] Chente Conn Work Phone: [facility]-Laboratory, Specimen Start: 09-11-2021 Non-patient / Non-visit Dr. Areli Conn Work Phone: [facility] Start: 09-11-2021 End: 09-11-[address] Chente Conn Work Phone: [facility]-Cardiovascular Services Start: 09-10-2021 End: 09-21-[address] Chente Cnon Work Phone: [facility]-Laboratory, Specimen Start: 09-10-[address] Chente Conn [facility] Start: 08-19-2021 End: 08-19-[address] Chente Conn Work Phone: [facility]-Pulmonary Medicine [facility] Start: 08-12-2021 End: 08-12-[address] Chente Conn Work Phone: [facility]-Laboratory, Specimen Start: 08-08-2021 End: 08-08-[address] Chente Conn Work Phone: [facility]-Laboratory, Specimen Start: 07-16-2021 End: 07-16-[address] Chente Conn Work Phone: [facility] Start: 07-11-2021 End: 07-22-[address] Chente Conn Work Phone: [facility]-Laboratory, Specimen Start: 06-11-2021 End: 06-21-[address] Chen[facility] Start: 05-30-2021 End: 05-30-[address] Chente Conn Work Phone: [facility] Start: 05-20-2021 End: 05-20-[address] Chente Conn Work Phone[facility] Start: 05-19-2021 End: 05-19-2021 Emergency department patient visit Dr. Chente Conn Work Phone: [facility]-Emergency Department Start: 05-13-2021 End: 05-22-[address] Chente Conn Work Phone: [facility]-Laboratory, Specimen Start: 04-28-2021 End: 04-28-[address] Chente Conn Work Phone: [facility]-Laboratory, Specimen Start: 04-21-2021 End: 04-21-[address] Chente Conn Work Phone: [facility]-Laboratory, Specimen Start: 04-15-2021 End: 04-15-[address] Chente Conn Work Phone: [facility]-Pulmonary Medicine [facility] Start: 03-25-2021 End: 04-21-[address] Chente Conn Work Phone: [facility]-Laboratory, Specimen Start: 02-24-2021 End: 03-24-[address] Chente Conn Work Phone: [facility]-Laboratory, Specimen Start: 01-28-2021 End: 02-21-[address] Chente Conn Work Phone: [facility]-Laboratory, Specimen Procedures Date Procedure Procedure Detail Performing Clinician Start: 11-09-[address] Chente Conn MD Work Phone: Start: 11-09-2024 Urnls dip stick/tablet reagent auto microscopy Dr. Chente Conn MD Work Phone: Start: 11-09-[address] Chente Conn MD Work Phone: Start: 07-26-2024 X-ray of knee, one or [...] on above: Detection Limit = 3Performed at: [address] Director: Berry Gonzalez PhD, Phone: [phone] Start: 06-26-2024 Total iron binding capacity measurement [...] of current medications Jacek Monsalve Work Phone: Bacteria identified in Blood by [...] Treatment Date Care Activity Detail Author Start: 09-06-2024 Patient discharge [facility] Start: 09-03-2024 Airway suction technique [facility] Start: 09-03-2024 Following clinical pathway protocol [facility] Start: 09-03-2024 Venous catheter care management [facility] Start: 09-03-2024 Aspiration precautions [facility] Start: 09-03-2024 Assessment of risk of venous thromboembolism [facility] Start: 09-03-2024 Continuous pulse oximetry [facility] Start: 09-03-2024 Fall prevention [facility] Start: 09-03-2024 Insertion of catheter into peripheral vein [facility] Start: 09-03-2024 Introduction of urinary catheter [facility] Start: 09-03-2024 Measuring intake and output [facility] Start: 09-03-2024 Oxygen therapy [facility] Start: 09-03-2024 Patient referral to dietitian [facility] Start: 09-03-2024 Providing care according to standard [facility] Start: 09-03-2024 Referral for physical therapy [facility] Start: 09-03-2024 Referral to occupational therapist [facility] Start: 09-03-2024 Referral to service [facility] Start: 09-03-2024 Vital signs measurements [facility] Start: 09-03-2024 [facility] Start: 09-03-2024 Admission procedure [facility] Start: 09-03-2024 Elevation of head of bed [facility] Start: 09-03-2024 Physiotherapy of chest [facility] Start: 09-03-2024 [facility] Start: 06-26-2024 Insulin-like growth factor [Moles/volume] in Serum or Plasma [facility] Start: 06-26-2024 Prolactin measurement [facility] Start: 06-26-2024 Testosterone measurement [facility] Start: 04-13-2023 Venous catheter care management [facility] Start: 04-13-2023 End: 04-13-2023 [facility] Start: 04-13-2023 [facility] Start: 03-25-2023 Patient discharge [facility] Start: 03-24-2023 Referral to service [facility] Start: 03-24-2023 CBC W Auto Differential panel - Blood [facility] Start: 03-24-2023 [facility] Start: 03-23-2023 Following clinical pathway protocol [facility] Start: 03-23-2023 Assessment of risk of venous thromboembolism [facility] Start: 03-23-2023 Consultation [facility] Start: 03-23-2023 Consultation for treatment [facility] Start: 03-23-2023 Inhalation therapy procedure [facility] Start: 03-23-2023 Insertion of catheter into peripheral vein [facility] Start: 03-23-2023 Measuring intake and output [facility] Start: 03-23-2023 Oxygen therapy [facility] Start: 03-23-2023 Patient referral to dietitian [facility] Start: 03-23-2023 Providing care according to standard [facility] Start: 03-23-2023 Provision of activity privileges [facility] Start: 03-23-2023 Referral to service [facility] Start: 03-23-2023 Respiratory therapy [facility] Start: 03-23-2023 [facility] Start: 03-23-2023 Verification routine [facility] Start: 03-23-2023 Admission procedure [facility] Start: 03-23-2023 Bacteria identified in Blood by Culture Blood Culture [facility] Start: 03-23-2023 Bacteria identified in Urine by Culture [facility] Start: 03-23-2023 [facility] Start: 03-23-2023 End: 03-23-2023 Blood culture [facility] Start: 03-23-2023 End: 03-23-2023 [facility] Start: 01-16-2023 End: 01-16-2023 Blood culture [facility] Start: 01-16-2023 End: 01-16-2023 [facility] Start: 01-16-2023 Bacteria identified in Blood by Culture Blood Culture [facility] Start: 01-16-2023 Bacteria identified in Urine by Culture Urine Culture [facility] Start: 12-16-2022 Blood chemistry [facility] Start: 12-16-2022 Complete blood count [facility] Start: 12-15-2022 Blood chemistry [facility] Start: 12-15-2022 Complete blood count [facility] Start: 12-14-2022 Blood chemistry [facility] Start: 12-14-2022 Complete blood count [facility] Start: 12-13-2022 Patient discharge [facility] Start: 12-13-2022 Blood chemistry [facility] Start: 12-13-2022 Complete blood count [facility] Start: 12-12-2022 Blood chemistry [facility] Start: 12-12-2022 Complete blood count [facility] Start: 12-12-2022 [facility] Start: 12-11-2022 Referral to service [facility] Start: 12-10-2022 Ambulation without limitation [facility] Start: 12-10-2022 Assessment of risk of venous thromboembolism [facility] Start: 12-10-2022 Inhalation therapy procedure [facility] Start: 12-10-2022 Insertion of catheter into peripheral vein [facility] Start: 12-10-2022 Oxygen therapy [facility] Start: 12-10-2022 Providing care according to standard [facility] Start: 12-10-2022 Referral to service [facility] Start: 12-10-2022 [facility] Start: 12-10-2022 Following clinical pathway protocol [facility] Start: 12-10-2022 Verification routine [facility] Start: 12-10-2022 Admission procedure [facility] Start: 12-10-2022 Hospital admission, emergency, from emergency room, medical nature [facility] Start: 12-10-2022 [facility] Start: 12-10-2022 Patient referral to dietitian [facility] Start: 11-05-2022 Patient discharge [facility] Start: 11-04-2022 [facility] Start: 10-29-2022 [facility] Start: 10-28-2022 Respiratory therapy [facility] Start: 10-27-2022 End: 10-28-2022 [facility] Start: 10-27-2022 Care planning and problem solving actions [facility] Start: 10-27-2022 Respiratory therapy [facility] Start: 10-27-2022 Elevation of head of bed [facility] Start: 10-27-2022 Mouth care [facility] Start: 10-27-2022 Notification of physician [facility] Start: 10-27-2022 Tracheostomy care [facility] Start: 10-27-2022 Airway suction technique [facility] Start: 10-27-2022 Oxygen therapy [facility] Start: 10-27-2022 Assessment of risk of venous thromboembolism [facility] Start: 10-27-2022 Insertion of catheter into peripheral vein [facility] Start: 10-27-2022 Measuring intake and output [facility] Start: 10-27-2022 Physiotherapy of chest [facility] Start: 10-27-2022 Providing care according to standard [facility] Start: 10-27-2022 Vital signs measurements [facility] Start: 10-27-2022 Admission procedure [facility] Start: 10-27-2022 [facility] Start: 06-22-2022 End: 06-22-2022 Blood culture [facility] Start: 06-22-2022 End: 06-22-2022 [facility] Start: 06-12-2022 [facility] Start: 04-01-2022 Venous catheter care management [facility] Start: 04-01-2022 Patient discharge [facility] Start: 03-30-2022 Referral to ear, nose and throat service [facility] Start: 03-29-2022 Referral to general surgeon [facility] Start: 03-28-2022 [facility] Start: 03-27-2022 Care planning and problem solving actions [facility] Start: 03-27-2022 Referral to occupational therapist [facility] Start: 03-26-2022 Consultation [facility] Start: 03-25-2022 Referral to service [facility] Start: 03-25-2022 Airway suction technique [facility] Start: 03-25-2022 Oxygen therapy [facility] Start: 03-25-2022 End: 03-26-2022 [facility] Start: 03-25-2022 Care planning and problem solving actions [facility] Start: 03-25-2022 [facility] Start: 03-24-2022 [facility] Start: 03-24-2022 Following clinical pathway protocol [facility] Start: 03-24-2022 Assessment of risk of venous thromboembolism [facility] Start: 03-24-2022 Catheterization of vein [facility] Start: 03-24-2022 Consultation [facility] Start: 03-24-2022 Inhalation therapy procedure [facility] Start: 03-24-2022 Insertion of catheter into peripheral vein [facility] Start: 03-24-2022 Measuring intake and output [facility] Start: 03-24-2022 Patient referral to dietitian [facility] Start: 03-24-2022 Providing care according to standard [facility] Start: 03-24-2022 Referral to service [facility] Start: 03-24-2022 [facility] Start: 03-24-2022 Admission procedure [facility] Start: 03-24-2022 End: 03-24-2022 Blood culture [facility] Start: 03-24-2022 Patient referral to dietitian [facility] Start: 02-22-2022 DEPRESSION ASSESSMENT DEPRESSION ASSESSMENT [facility] Start: 12-05-2021 Patient discharge [facility] Start: 12-04-2021 [facility] Start: 12-03-2021 Referral to service [facility] Start: 12-03-2021 Consultation [facility] Start: 12-02-2021 Referral to general surgeon [facility] Start: 12-02-2021 Physiotherapy of chest [facility] Start: 12-01-2021 Patient referral to dietitian [facility] Start: 11-30-2021 Following clinical pathway protocol [facility] Start: 11-30-2021 Transfusion of blood product [facility] Start: 11-30-2021 Assessment of risk of venous thromboembolism [facility] Start: 11-30-2021 Consultation [facility] Start: 11-30-2021 Insertion of catheter into peripheral vein [facility] Start: 11-30-2021 Measuring intake and output [facility] Start: 11-30-2021 Oxygen therapy [facility] Start: 11-30-2021 Providing care according to standard [facility] Start: 11-30-2021 Referral to occupational therapist [facility] Start: 11-30-2021 Referral to service [facility] Start: 11-30-2021 [facility] Start: 11-30-2021 Verification routine [facility] Work Phone: Start: 11-30-2021 Admission procedure [facility] Start: 11-30-2021 CT angiography of chest with contrast CTA Chest W/WO Contrast [facility] Work Phone: Start: 11-30-2021 CTA Chest vessels WO and W contrast IV [facility] Work Phone: Start: 11-30-2021 End: 12-01-2021 [facility] Start: 10-23-2021 Influenza vaccination INFLUENZA (#1) [facility] Start: 10-15-2018 Hemoglobin A1c/Hemoglobin.total in Blood HBA1C [facility] Start: 08-27-2017 End: 08-27-2017 Appointment [facility] Work Phone: Start: 08-28-2016 End: 08-28-2016 Appointment Appointment [facility] Work Phone: Start: 08-28-2016 End: 08-28-2016 *BMP *BMP [facility] Work Phone: Start: 08-28-2016 End: 08-28-2016 BNP *Brain Natriuretic Peptide BNP [facility] Work Phone: Start: 08-28-2016 End: 08-28-2016 BUSHLER BUSHLER [facility] Work Phone: Start: 08-28-2016 End: 08-28-2016 Follow Up Appt 1 year Follow Up Appt 1 year [facility] Work Phone: Start: 05-27-2016 End: 05-28-2016 aPTT *PTT-Partial Thromboplastin Time [facility] Work Phone: Start: 05-27-2016 End: 05-28-2016 CBC W Auto Differential panel - Blood *CBC [facility] Work Phone: Start: 05-27-2016 End: 05-28-2016 Coagulation factor induced.INR assay in platelet poor plasma *PT/INR [facility] Work Phone: Start: 01-08-2016 End: 01-08-2016 Bacterica wound culture *Culture and Sensitivity, wound [facility] Work Phone: Start: 04-12-2012 Hepatitis B screening URINE ALBUMIN:CREATININE RATIO [facility] Start: 04-08-2012 Hepatitis B surface antibody level LDL CHOLESTEROL [facility] Start: 04-08-2012 PNEUMOCOCCAL (2 - PCV) PNEUMOCOCCAL (2 - PCV) [facility] ic Start: 2001 Urine microalbumin profile DTAP,TDAP,TD (1 - Tdap) [facility] Start: 02-01-2000 ANNUAL PCP TEAM CHRONIC DISEASE VISIT ANNUAL PCP TEAM CHRONIC DISEASE VISIT [facility] Start: 02-01-2000 HIV SCREENING HIV SCREENING [facility] Start: 02-01-1992 3 comp foot exam [facility] Start: 02-01-1992 Hepatitis C antibody, confirmatory test DILATED RETINAL EXAM [facility] Start: 1980 COVID-19 VACCINE (#1) COVID-19 VACCINE (#1) [facility] Start: 1980 HEPATITIS B (1 of 3 - 3-dose series) HEPATITIS B (1 of 3 - 3-dose series) [facility] 24 hour urine calciu m output measurement [facility] Alanine aminotransfe rase [Enzymatic activity/volume] in Serum or Plasma [facility] Alanine aminotransfe rase [Enzymatic activity/volume] in Serum or Plasma [facility] Albumin [Mass/volume ] in Serum or Plasma [facility] Albumin [Mass/volume ] in Serum or Plasma [facility] Alkaline phosphatase [Enzymatic activity/volume] in Serum or Plasma [facility] Alkaline phosphatase [Enzymatic activity/volume] in Serum or Plasma [facility] Anion gap measurement [facility] Anion gap measurement [facility] Anion gap measurement [facility] Anion gap measurement [facility] Anion gap measurement [facility] Anion gap measurement [facility] Anion gap measurement [facility] Aspartate aminotrans ferase [Enzymatic activity/volume] in Serum or Plasma [facility] Aspartate aminotrans ferase [Enzymatic activity/volume] in Serum or Plasma [facility] Bacteria identified in Blood by Culture Blood Culture [facility] Bacteria identified in Sputum by Respiratory culture [facility] Work Phone: Bacteria identified in Sputum by Respiratory culture [facility] Bilirubin, total measurement [facility] Bilirubin, total measurement [facility] BUN/Creatinine ratio [facility] BUN/Creatinine ratio [facility] BUN/Creatinine ratio [facility] BUN/Creatinine ratio [facility] BUN/Creatinine ratio [facility] BUN/Creatinine ratio [facility] BUN/Creatinine ratio [facility] Calcium [Mass/volume ] in Serum or Plasma [facility] Calcium [Mass/volume ] in Serum or Plasma [facility] Calcium [Mass/volume ] in Serum or Plasma [facility] Calcium [Mass/volume ] in Serum or Plasma [facility] Calcium [Mass/volume ] in Serum or Plasma [facility] Calcium [Mass/volume ] in Serum or Plasma [facility] Calcium [Mass/volume ] in Serum or Plasma [facility] Carbon dioxide, tota l [Moles/volume] in Serum or Plasma [facility] Carbon dioxide, tota l [Moles/volume] in Serum or Plasma [facility] Carbon dioxide, tota l [Moles/volume] in Serum or Plasma [facility] Carbon dioxide, tota l [Moles/volume] in Serum or Plasma [facility] Carbon dioxide, tota l [Moles/volume] in Serum or Plasma [facility] Carbon dioxide, tota l [Moles/volume] in Serum or Plasma [facility] Carbon dioxide, tota l [Moles/volume] in Serum or Plasma [facility] Chloride [Moles/volu me] in Serum or Plasma [facility] Chloride [Moles/volu me] in Serum or Plasma [facility] Chloride [Moles/volu me] in Serum or Plasma [facility] Chloride [Moles/volu me] in Serum or Plasma [facility] Chloride [Moles/volu me] in Serum or Plasma [facility] Chloride [Moles/volu me] in Serum or Plasma [facility] Chloride [Moles/volu me] in Serum or Plasma [facility] Creatinine [Moles/vo lume] in Serum or Plasma [facility] Creatinine [Moles/vo lume] in Serum or Plasma [facility] Creatinine [Moles/vo lume] in Serum or Plasma [facility] Creatinine [Moles/vo lume] in Serum or Plasma [facility] Creatinine [Moles/vo lume] in Serum or Plasma [facility] Creatinine [Moles/vo lume] in Serum or Plasma [facility] Creatinine [Moles/vo lume] in Serum or Plasma [facility] Erythrocyte mean corpuscular volume determination [facility] Erythrocyte mean corpuscular volume determination [facility] Glucose [Mass/volume ] in Serum or Plasma [facility] Glucose [Mass/volume ] in Serum or Plasma [facility] Glucose [Mass/volume ] in Serum or Plasma [facility] Glucose [Mass/volume ] in Serum or Plasma [facility] Glucose [Mass/volume ] in Serum or Plasma [facility] Glucose [Mass/volume ] in Serum or Plasma [facility] Glucose [Mass/volume ] in Serum or Plasma [facility] Hematocrit [Volume Fraction] of Blood [facility] Hematocrit [Volume Fraction] of Blood [facility] Hematocrit [Volume Fraction] of Blood [facility] Hematocrit [Volume Fraction] of Blood [facility] Hematocrit [Volume Fraction] of Blood [facility] Hematocrit [Volume Fraction] of Blood [facility] Hematocrit [Volume Fraction] of Blood [facility] Hematocrit [Volume Fraction] of Blood [facility] Hemoglobin [Mass/vol ume] in Blood [facility] Hemoglobin [Mass/vol ume] in Blood [facility] Hemoglobin [Mass/vol ume] in Blood [facility] Hemoglobin [Mass/vol ume] in Blood [facility] Hemoglobin [Mass/vol ume] in Blood [facility] Hemoglobin [Mass/vol ume] in Blood [facility] Hemoglobin [Mass/vol ume] in Blood [facility] Hemoglobin [Mass/vol ume] in Blood [facility] Insulin-like growth factor [Moles/volume] in Serum or Plasma [facility] Lactic acid measurement [facility] Leukocytes [#/volume ] in Blood [facility] Leukocytes [#/volume ] in Blood [facility] Leukocytes [#/volume ] in Blood [facility] Leukocytes [#/volume ] in Blood [facility] Leukocytes [#/volume ] in Blood [facility] Leukocytes [#/volume ] in Blood [facility] Leukocytes [#/volume ] in Blood [facility] Leukocytes [#/volume ] in Blood [facility] Mean corpuscular hem oglobin concentration determination [facility] Mean corpuscular hem oglobin concentration determination [facility] Mean corpuscular hem oglobin concentration determination [facility] Mean corpuscular hem oglobin concentration determination [facility] Mean corpuscular hem oglobin concentration determination [facility] Mean corpuscular hem oglobin concentration determination [facility] Mean corpuscular hem oglobin concentration determination [facility] Mean corpuscular hem oglobin concentration determination [facility] Mean corpuscular hem oglobin determination [facility] Mean corpuscular hem oglobin determination [facility] Mean corpuscular hem oglobin determination [facility] Mean corpuscular hem oglobin determination [facility] Mean corpuscular hem oglobin determination [facility] Mean corpuscular hem oglobin determination [facility] Mean corpuscular hem oglobin determination [facility] Mean corpuscular hem oglobin determination [facility] Measurement of renal function [facility] Measurement of renal function [facility] Measurement of renal function [facility] Measurement of renal function [facility] Measurement of renal function [facility] Measurement of renal function [facility] Measurement of renal function [facility] Microscopic observat ion [Identifier] in Unspecified specimen by Gram stain Gram Stain [facility] Work Phone: Neutrophil count [facility] Neutrophil count [facility] Neutrophil count [facility] Neutrophil percent differential count [facility] Neutrophil percent differential count [facility] Neutrophil percent differential count [facility] Patient Education [facility] Work Phone: Patient referral [facility] Work Phone: Platelets [#/volume] in Blood [facility] Platelets [#/volume] in Blood [facility] Platelets [#/volume] in Blood [facility] Platelets [#/volume] in Blood [facility] Platelets [#/volume] in Blood [facility] Platelets [#/volume] in Blood [facility] Platelets [#/volume] in Blood [facility] Platelets [#/volume] in Blood [facility] Potassium [Moles/vol ume] in Serum or Plasma [facility] Potassium [Moles/vol ume] in Serum or Plasma [facility] Potassium [Moles/vol ume] in Serum or Plasma [facility] Potassium [Moles/vol ume] in Serum or Plasma [facility] Potassium [Moles/vol ume] in Serum or Plasma [facility] Potassium [Moles/vol ume] in Serum or Plasma [facility] Potassium [Moles/vol ume] in Serum or Plasma [facility] Prolactin measurement [facility] Red blood cell count [facility] Red blood cell count [facility] Red blood cell count [facility] Red blood cell count [facility] Red blood cell count [facility] Red blood cell count [facility] Red blood cell count [facility] Red blood cell count [facility] Red cell distributio n width determination [facility] Red cell distributio n width determination [facility] Red cell distributio n width determination [facility] Red cell distributio n width determination [facility] Red cell distributio n width determination [facility] Red cell distributio n width determination [facility] Red cell distributio n width determination [facility] Red cell distributio n width determination [facility] Respiratory Culture Respiratory Culture [facility] Work Phone: Respiratory pathogen s DNA and RNA 12b panel - Unspecified specimen by YAYO with probe detection [facility] Serum testosterone measurement [facility] Sodium [Moles/volume ] in Serum or Plasma [facility] Sodium [Moles/volume ] in Serum or Plasma [facility] Sodium [Moles/volume ] in Serum or Plasma [facility] Sodium [Moles/volume ] in Serum or Plasma [facility] Sodium [Moles/volume ] in Serum or Plasma [facility] Sodium [Moles/volume ] in Serum or Plasma [facility] Sodium [Moles/volume ] in Serum or Plasma [facility] Testosterone Free [Mass/volume] in Serum or Plasma [facility] Testosterone measurement [facility] Total protein measurement [facility] Total protein measurement [facility] Urea nitrogen [Mass/ volume] in Serum or Plasma [facility] Urea nitrogen [Mass/ volume] in Serum or Plasma [facility] Urea nitrogen [Mass/ volume] in Serum or Plasma [facility] Urea nitrogen [Mass/ volume] in Serum or Plasma [facility] Urea nitrogen [Mass/ volume] in Serum or Plasma [facility] Urea nitrogen [Mass/ volume] in Serum or Plasma [facility] Urea nitrogen [Mass/ volume] in Serum or Plasma [facility] Work Phone: [facility] Immunizations Immunization Date Immunization Notes Care Provider [facility] 01-09-2021 influenza, injectabl e, quadrivalent, preservative free Dr. Chente Conn Work Phone: [facility] 01-09-2021 influenza, seasonal, injectable Dr. Chente Conn Work Phone: [facility] 04-03-2020 Covid (Moderna) Dr. Chente cooper Work Phone: [facility] 02-06-[address] Chente Conn Work Phone: [facility] 12-11-[address] Chente Conn Work Phone: [facility] 01-20-[address] Chente Conn Work Phone: [facility] 02-19-2017 influenza, injectabl e, quadrivalent, preservative free Dr. Chente Conn Work Phone: [facility] 02-19-2017 influenza, seasonal, injectable Dr. Chente Conn Work Phone: [facility] 12-23-2015 influenza, injectabl e, quadrivalent, preservative free Dr. Chente Conn Work Phone: [facility] 12-23-2015 influenza, seasonal, injectable Dr. Chente Conn Work Phone: [facility] 11-08-2014 influenza, injectabl e, quadrivalent, preservative free LELIA Leavitt MD Work Phone: [facility] 01-15-2014 influenza, injectabl e, quadrivalent, preservative free Dr. Chente Conn Work Phone: [facility] 01-15-2014 influenza, seasonal, injectable Dr. Chente Conn Work Phone: [facility] 12-14-2012 influenza virus vacc ine, unspecified formulation LELIA Leavitt MD Work Phone: [facility] 11-22-[address] Darwin Conn Work Phone: [facility] Work Phone: 11-22-2012 pneumococcal vaccine , unspecified formulation Dr. Chente Conn Work Phone: [facility] 04-08-2011 influenza virus vacc ine, unspecified formulation LELIA Leavitt MD Work Phone: [facility] 04-08-2011 pneumococcal polysaccharide vaccine, 23 valent LELIA Leavitt MD Work Phone: [facility] Payers Date Payer Category Payer Unknown [id number] 2024 Self-pay [id number] 2020 Medicare [id number] 2020 Medicare MEDICARE MEDICAR E A AND B [id number] 2020-Present [phone] [place] [address] Medicare [id number] 2018 Medicaid MEDICAID [facility] MEDICAID [id number] 2018-Present [phone] [address] [place] [address] Medicaid [id number] 2018 Unknown [employer]THEM BLUE ACCE SS PPO [id number] 2018-Present [phone] [address] [place] [address] PPO [id number] 2016 Medicaid [id number] 2016 Unknown [id number] Unknown [id number] 2.840.1.181881.3.579.2.462 Unknown [id number] 2.840.1.878799.3.579.2.462 Unknown [id number] 2.16840.1.700228.3.579.2.462 Unknown [id number] 2.16840.1.934456.3.579.2.462 Unknown [id number] 2.16840.1.663617.3.579.2.462 Unknown [id number] 2.16840.1.150216.3.579.2.462 Unknown [id number] 2.16.840.1.919126.3.579.2.462 Unknown [id number] 2.16.840.1.635518.3.579.2.462 Unknown [id number] 2.16.840.1.434644.3.579.2.462 Unknown [id number] 2.16.840.1.516945.3.579.2.462 Unknown [id number] 2.16.840.1.731172.3.579.2.462 Unknown [id number] 2.16840.1.008625.3.579.2.462 Unknown [id number] 2.16840.1.377172.3.579.2.462 Unknown [id number] 2.840.1.561682.3.579.2.462 Unknown [id number] 2.840.1.468170.3.579.2.462 Unknown [id number] 2.840.1.021581.3.579.2.462 Unknown [id number] 2.840.1.450669.3.579.2.462 Unknown [id number] 2.840.1.044989.3.579.2.462 Unknown [id number] 2.840.1.538963.3.579.2.462 Unknown [id number] 2.840.1.922525.3.579.2.462 Unknown [id number] 2.16840.1.146924.3.579.2.462 Unknown [id number] 2.16840.1.768522.3.579.2.462 Unknown [id number] 2.16.840.1.945829.3.579.2.462 Unknown [id number] 2.16840.1.669436.3.579.2.462 Unknown [id number] 2.840.1.925844.3.579.2.462 Unknown [id number] 2.16.840.1.682567.3.579.2.462 Unknown [id number] 2.16.840.1.151421.3.579.2.462 Unknown [id number] 2.16.840.1.312243.3.579.2.462 Unknown [id number] 2.16.840.1.259340.3.579.2.462 Unknown [id number] 2.16.840.1.847726.3.579.2.462 Unknown [id number] 2.16.840.1.865515.3.579.2.462 Unknown [id number] 2.16.840.1.670482.3.579.2.462 Unknown [id number] 2.16.840.1.025128.3.579.2.462 Unknown [id number] 2.16.840.1.041388.3.579.2.462 Unknown [id number] 2.16.840.1.908909.3.579.2.462 Unknown [id number] 2.16.840.1.470574.3.579.2.462 Unknown [id number] 2.16.840.1.747939.3.579.2.462 Unknown [id number] 2.16.840.1.092105.3.579.2.462 Unknown [id number] 2.16.840.1.789960.3.579.2.462 Unknown [id number] 2.16.840.1.254329.3.579.2.462 Unknown [id number] 2.16840.1.831014.3.579.2.462 Social History Date Type Detail Facility Start: 05-19-2021 End: 01-16-2023 Tobacco smoking status NHIS Unknown if ever smoked [facility] Start: 04-25-2020 None [facility] Start: 04-25-2020 With Family [facility] Start: 07-08-2019 Non-smoker [facility] Start: 1980 Sex Assigned At Male W [facility] Start: 2024 End: 11-09-2024 Tobacco smoking status NHIS Never smoked tobacco [facility] Start: 12-27-2019 Alcohol intake Not Asked Luis Daniel iraheta [facility] Start: 1980 Sex Assigned At Not on file [facility] Start: 05-17-2024 End: 05-23-2024 Sex Male (finding) [facility] Sex Male [facility] Medical Equipment Procedure Code Equipment Code Equipment Origin al Text Equipment Identifier Dates Catheter Ascenda 4fr .5mm Silicone 114cm 86cm Intrathecal 2 Piece Connector - [id number] Start: 04-05-2018 Pump Int Thcl 40 ml Snchr 2 Drg - [id number] Start: 03-08-2012 Pump Synchromed Ii 87.5in Titanium Silicone 26in Intrathecal [facility] - [id number] Start: 04-05-2018 Tube Shiley 10.8 mm 6.4mm 6 76mm Tracheostomy Cuff Low Pressure Fenestrate - [id number] Start: 04-20-2018 Goals Date Patient Goal Desired Activity /State Functional Status Date Assessment Result Facility 09-06-2024 Functional status Bedrest [facility] Work Phone: 03-25-2023 Functional status Bedrest [facility] Work Phone: 03-25-2023 Functional status Fair [facility] Work Phone: 12-13-2022 Functional status Bedrest [facility] Work Phone: 12-11-2022 Functional status Bedrest [facility] Work Phone: 11-05-2022 Functional status Chair [facility] Work Phone: 04-01-2022 Functional status Bedrest [facility] Work Phone: 03-31-2022 Functional status None [facility] Work Phone: 12-05-2021 Functional status With Assist of 2 [facility] Work Phone: 12-04-2021 Functional status Bedrest [facility] Work Phone: 12-03-2021 Functional status None [facility] Work Phone: Mental Status Date Assessment Result Facility 11-09-2024 Cognitive function Level Of Consciousness Awake [facility] Work Phone: 09-06-2024 Cognitive function Voice/Name;To uch/Shaking;Light Pain;Deep Pain [facility] Work Phone: 09-06-2024 Cognitive function Patient Orientation Pe rson [facility] Work Phone: 09-05-2024 Cognitive function Comprehension Ability Demonstrates ability to follow instructions/comprehend [facility] Work Phone: 03-25-2023 Cognitive function Passive [facility] Work Phone: 03-24-2023 Cognitive function Voice/Name [facility] Work Phone: 12-13-2022 Cognitive function Voice/Name [facility] Work Phone: 12-13-2022 Cognitive function Dependent [facility] Work Phone: 12-11-2022 Cognitive function Voice/Name [facility] Work Phone: 11-05-2022 Cognitive function Voice/Name [facility] Work Phone: 06-12-2022 Cognitive function Awake;Alert;Appropriat e [facility] Work Phone: 04-01-2022 Cognitive function Voice/Name [facility] Work Phone: 03-31-2022 Cognitive function Demonstrates ability to follow instructions/comprehend [facility] Work Phone: 12-05-2021 Cognitive function Voice/Name [facility] Work Phone: 12-03-2021 Cognitive function Remote Impaired [facility] Work Phone: Clinical Notes 07-15-2018 to 11-09-2024 Note Date & Type Note Facility 11-09-2024 Discharge summary Note Date/Time November 09, 2024 11:27am [facility] Medical Records Department [address] [place] [address] Emergency Department Summary 11/09/24 MR#: [id number] Acct: [id number] Name: KRISS MICHAEL Rep #:[id number] : 1980 44 From: Mayra Hidalgo PCP: Dr. Chente Conn MD Status:RE G ER Location: ED HPI History of Present Illness Chief Complaint: General Illness Informant: family Narrative Narrative: Patient is a 44-year-old male with history of cerebral palsy, chronic respiratory failure on tracheostomy, PEG tube dependent and pneumonia presentingfor tachycardia. Family states that he has day night reversal and this morning around 6 AM his heart rate was in the 130s. They gave him his normal 2 mg Ativan around 7 AM however by 8 AM he was still had a heart rate in the 120s to 130s with a called EMS. They note he received his baclofen and gabapentin at 6 AM like normal. He has not yet had his morning phenobarbital, doxazosin or Reglan. They do notes that he is otherwise been in his normal state of health. He has had normal sputum production and secretions from his lungs. Family denies any changes in O2 requirements. He has had no difficulty with his ostomyand has had normal urine output as well as stool output. No increased residualsfrom his PEG tube. No fevers reported. Last weekend he did have 1 episode of urinary retention but ultimately did urinate and has been fine since with normalurination. Upon arrival to the emergency room patient's heart rate normalized. No other complaints or concerns reported at this time. [facility] Medical History Hypogonadism in male Osteoporosis History of aspiration pneumonia Tachycardia Aspiration pneumonia Anxiety GERD (gastroesophageal reflux disease) Non-smoker On home oxygen therapy Pulmonary embolism Seizures Cerebral palsy Chronic respiratory failure with hypoxia Pseudomonas pneumonia Colostomy prolapse Cerebral palsy Acute dyspnea Anemia in chronic illness Upper GI bleeding (04/2020) Thrombocytopenia Pulmonary embolism on left (06/14/19) Iron deficiency anemia Obesity Tracheostomy in place Debility Chronic respiratory failure Edema Nonrheumatic mitral valve prolapse Redundant colon History of seizure disorder Home Medications ?Medication ?Instructions ?Recorded ?Last Taken ?Type phenobarbital 20 mg/5 mL (4 mg/mL) 60 mg G-tube 0830,2 100 SEIZURES 02/19/17 09/03/24 History oral elixir metoclopramide HCl 5 mg/5 mL oral 10 mg feeding tube 0 830,1600,2100 09/16/18 09/03/24 History solution STOMACH Cough Assist 1 dose .Route .MEDSUPPLY ass ist in 12/25/18 09/03/24 History clearing secretions gabapentin 250 mg/5 mL oral 500 mg G-tube 0000,0600,12 00,1800 09/26/19 09/03/24 History solution SEIZURES albuterol sulfate 2.5 mg/3 mL 2.5 mg inhalation Q4H [place] N Sob &/Or 11/27/20 09/03/24 History (0.083 %) solution for nebulization Wheezing doxazosin 2 mg tablet 2 mg PO 0830 BLOOD PRESSURE 11/30/21 09/03/24 History cholecalciferol (vitamin D3) 10 15 mcg feeding tube 08 30 SUPPLEMENT 03/24/22 09/03/24 History mcg/mL (400 unit/mL) oral drops acetaminophen 650 mg/20.3 mL oral 650 mg feeding tube 10/24/22 01/04/24 History suspension 0000,0600,1200,1800 PRN PAIN aluminum-mag hydroxide-simethicone 5 ml PO 0000,0600,1 200,1800 PRN 10/24/22 09/03/24 History 200 mg-200 mg-20 mg/5 mL oral susp ANTACID baclofen 20 mg tablet 20 mg feeding tube Q6H MUSCL E 12/10/22 09/03/24 History SPASMS ondansetron 4 mg disintegrating 4 mg PO Q8H PRN NAUSEA /VOMITING 12/13/22 Unknown Rx tablet #30 tabs esomeprazole magnesium 40 mg 40 mg G-tube BID ACID REF LUX 03/23/23 09/03/24 History granules delayed release for susp (Nexium Packet) ipratropium 0.5 mg-albuterol 3 mg 3 ml inhalation Q4H PRN SOB &/OR 03/23/23 09/03/24 History (2.5 mg base)/3 mL nebulization WHEEZING soln cetirizine 1 mg/mL oral solution 10 mg (10 mL) feeding tube 1600 09/30/23 09/03/24 Rx ALLERGIES #480 mL lorazepam 2 mg/mL oral concentrate 2 mg feeding tube D AILY PRN 01/04/24 01/03/24 History (Lorazepam Intensol) agitation food supplemt, lactose-reduced 1,000 ml PO QDAY 09/03/24 History 0.04 gram-1.05 kcal/mL oral liquid (Ensure Original) guaifenesin 200 mg/5 mL oral liquid 2 mg feeding tube 0830 04/04/24 09/03/24 History COUGH/CONGESTION testosterone (AndroGel) 1 pump topical QDAY #75 gram s 07/24/24 09/02/24 Rx plecanatide 3 mg tablet 3 mg G-tube 30 BOWELS #90 tabs 09/12/24 Unknown Rx oxygen concentrator #1 ea 09/29/24 Unknown Rx montelukast 4 mg oral granules in 4 mg PO DAILY ASTHMA #90 ea 10/18/24 Unknown Rx packet (Singulair) Allergy/AdvReac Type Severity Reaction Status Date / Time chlorhexidine Allergy Rash Verified 06/15/24 13:51 cisapride monohydrate (From Allergy Rash Verified 06/15/24 13:51 Propulsid) house dust Allergy NEEDS Verified 06/15/24 13:51 FOLLOW-UP metronidazole (From Flagyl) Allergy Rash Verified 06/15/24 13:51 codeine AdvReac hallucinati Verified 06/15/24 13:51 ons morphine AdvReac Hallucinati Verified 06/15/24 13:51 ons Family History Mother Hepatitis C Hypertension HIV disease CVA (cerebral vascular accident) Liver disease Father H/O heart artery stent CAD (coronary artery disease) Atrial fibrillation Hypertension Esophageal cancer Grandmother Asthma Diverticulitis Diabetes Myocardial infarction Heart disease Surgical History History of eye surgery Heel cord lengthening History of soft tissue release History of open reduction and internal fixation (ORIF) procedure History of gastrostomy tube placement Status post insertion of intrathecal baclofen pump History of colostomy Colostomy in place Social History household members: family housing: house current occupational status: disabled Smoking Status: Never smoker alcohol intake: never substance use type: does not use caffeine: No ROS ROS ED ROS Narrative Mother provides a limited review of systems. Patient able to contribute due to baseline mental status. Review of Systems ROS Unobtainable: due to mental status Constitutional Constitutional ED: Denies fever(s) Cardiovascular Cardiovascular: Reports racing heartbeat Respiratory/Chest Respiratory/Chest: Denies cough or dyspnea Gastrointestinal Gastrointestinal: Denies diarrhea or vomiting Genitourinary Genitourinary ED: Denies hematuria or urinary frequency Integumentary Denies rash EXAM Physical Exam Const Vital Signs: 11/09/24 08:03 11/09/24 08:08 11/09/24 10:03 Temperature 98.5 F Temperature Source Axillary Pulse Rate 90 78 Respiratory Rate 16 16 Respiratory Pattern Normal Blood Pressure 143/96 H 143/90 H Blood Pressure Mean 111 107 Pulse Ox 97 95 Oxygen Delivery Method Mechanical Ventilator Room Air Oxygen Flow Rate (L/min) 5 Constitutional Narrative: Chronically ill-appearing, in his normal state of health. HEENT Reports moist mucous membranes HEENT Narrative: Protruding tongue?chronic for patient Eyes PERRL Neck supple Neck Narrative: Chronic tracheostomy in place, surrounding tissue is clean and dry Chest Wall inspection of chest normal and palpation of chest normal Resp clear to auscultation bilaterally Resp Narrative: Vent dependence however he is clear breath sounds throughout Auscultation: Negative for wheezes or diminished lung sounds Cardio regular rate, regular rhythm and no murmurs GI non-tender GI Narrative: Chronic feeding tube in place. Colostomy in place with chronic stomal hernia present. Stool and air in his colostomy bag. Abdomen distended but this is likely chronic Inspection: abdominal distention Auscultation: normoactive bowel sounds Palpation: soft; Negative for tender or guarding Extremity General Extremety ED: Yes edema General Extremity: edema Neuro Neuro Narrative: Atrophy associated with cerebral palsy. Patient at his neurologic baseline Sensorium / Orientation: alert Motor Exam: general weakness Skin no rashes or lesions noted and no wounds MDM MDM MDM Narrative Medical decision making narrative: Patient evaluated for tachyarrhythmia at home. Did not respond to his normal 40medications was brought in for further evaluation. Has acquired a car Plex medical history and quite susceptible to pneumonia as well as infection. Upon arrival to ER patient's heart rate has improved. His vital signs have normalized. I will check basic labs including urinalysis, CBC and CMP/lipase. As he is on his baseline oxygen with no changes sputum production is clear breath sounds I do not think requires a chest x-ray at this time. Mother is in agreement. Workup is unremarkable. He has no leukocytosis or left shift. He has chronic anemia with a hemoglobin 9.6 which is stable for him. CMP largely normal. Lipase is normal. Urinalysis not consistent with infection. Patient continues to have stable vital signs in the emergency room. Will be discharged back home. The cause of his episode of tachycardia is not clear. Itcould be agitation related as family reports that he does not get along as well with his night nurse and she frequently suctions him. Patient was giving his morning Reglan and phenobarbital in the emergency room as scheduled. Lab Data Attestation: I reviewed the patient's lab results. Labs: Laboratory Results - last 24 hr 11/09/24 11/09/24 09:52 10:02 WBC 5.9 RBC 3.57 L Hgb 9.6 L Hct 30.2 L MCV 84.6 MCH 26.9 L MCHC 31.8 L RDW Std Deviation 47.3 H RDW Coeff of Emilee 15.5 H Plt Count 132 L MPV 9.4 Immature Gran % (Auto) 0.300 Neut % (Auto) 64.9 Lymph % (Auto) 23.1 Placer % (Auto) 7.6 Eos % (Auto) 3.9 Baso % (Auto) 0.2 Absolute Neuts (auto) 3.8 Absolute Lymphs (auto) 1.37 Nucleated RBC % 0 Sodium 137 Potassium 3.4 Chloride 102 Carbon Dioxide 23.1 Anion Gap 12 BUN 9 Creatinine 0.31 L Estim Creat Clear Calc 303.31 H Est GFR (MDRD) Non-Af 151 BUN/Creatinine Ratio 28.1 H Glucose 86 Calcium 7.6 Total Bilirubin < 0.15 AST 15 ALT 8 Alkaline Phosphatase 142 H Total Protein 6.9 Albumin 3.2 L Globulin 3.8 Albumin/Globulin Ratio 0.8 L Lipase 68 Urine Color Yellow Urine Clarity Clear Urine pH 6.5 Ur Specific Gage 1.010 Urine Protein 30 H Urine Glucose (UA) Normal Urine Ketones Negative Urine Occult Blood Negative Urine Nitrite Negative Urine Bilirubin Negative Urine Urobilinogen Normal Ur Leukocyte Esterase Negative Urine RBC 0 SEEN Urine WBC 0 SEEN Ur Squamous Epith Cells 0 SEEN Urine Bacteria 0 SEEN Urine Mucus 0 SEEN Discharge Plan Triage Chief Complaint: General Illness ED Provider: Mayra Shah Dx/Rx/DC Orders Clinical Impression: Tachycardia, Cerebral palsy, Iron deficiency anemia Instructions: ED Anemia, Type Not Specified (Adult) Prescriptions: No Action albuterol sulfate 2.5 mg /3 mL (0.083 %) solution for nebulization 2.5 mg inhalation Q4H PRN (Reason: Sob &/Or Wheezing) cetirizine 1 mg/mL solution 10 mg feeding tube 1600 Qty: 480 11RF guaifenesin 200 mg/5 mL liquid 2 mg feeding tube 0830 Patient Comments: mom states giving 0.5ml to help with mucus plugs at 9am Ensure Original 0.04-1.05 gram-kcal/mL liquid 1,000 ml PO QDAY Rx Instructions: continuous g-tube (DME) oxygen concentrator See Rx Instructions .Route .MEDSUPPLY Qty: 1 0RF Rx Instructions: 1 dose MEDSUPPLY; As directed to maintain oxygen saturations of 89-92% metoclopramide HCl 5 mg/5 mL solution 10 mg feeding tube 0830,1600,2100 phenobarbital 20 MG/5 ML elixir 60 mg G-tube 0830,2100 Cough Assist 1 dose .Route .MEDSUPPLY Rx Instructions: Inspiratory and Expiratory times of 20-40 seconds with a 1-2 second pause. gabapentin 250 MG/5 ML solution 500 mg [...] 7ML PULSE 69>: GIVE THE WHOLE 10ML doxazosin 2 mg tablet 2 mg GT 0830 cholecalciferol (vitamin D3) 10 mcg/mL (400 unit/mL) drops 15 mcg feeding tube 0830 alum-mag hydroxide-simeth 200-200-20 mg/5 mL suspension 5 ml PO 0000,0600,1200,1800 PRN (Reason: ANTACID) acetaminophen 650 mg/20.3 mL suspension 650 mg feeding tube 0000,0600,1200,1800 PRN (Reason: PAIN ) baclofen 20 mg tablet 20 mg feeding tube Q6H Patient Comments: gets compounded suspension from [facility]. ondansetron 4 mg tablet,disintegrating 4 mg PO Q8H PRN (Reason: NAUSEA/VOMITING) Qty: 30 0RF ipratropium-albuterol 0.5 mg-3 mg(2.5 mg base)/3 mL solution for nebulization 3 ml inhalation Q4H PRN (Reason: SOB &/OR WHEEZING) esomeprazole magnesium [Nexium Packet] [address] for susp in packet 40 mg G-tube BID lorazepam [Lorazepam Intensol] 2 mg/mL concentrate 2 mg feeding tube DAILY PRN (Reason: agitation) testosterone [AndroGel] 20.25 mg/1.25 gram (1.62 %) gel in metered-dose pump 1 pump topical QDAY Qty: 75 5RF Rx Instructions: apply 1 pump amount over max area of ONE upper arm and shoulder plecanatide 3 mg tablet 3 mg GT 0830 Qty: 90 2RF montelukast [Singulair] 4 mg granules in packet 4 mg PO DAILY Qty: 90 3RF Patient Comments: NEW RX THAT HAS NOT BEEN STARTED Primary Care Provider: Chente Conn Referrals: Chente Conn MD [Primary Care Provider, Family Practice] Activity Restrictions/Additional Instructions: Mo's workup today was largely normal and reassuring. Because of his elevatedheart rate prior to arrival is not clear. It could be from agitation. At this time he does not have signs of developing infection. If he has any worsening symptoms or further concerns please do not hesitate to return the emergency room. Print Language: Tanzanian Disposition Disposition: Home, Self Care What to do if you have Problems For any increased pain, shortness of breath, bleeding, nausea or vomiting, chestpain, or any unexpected problems, contact your Primary Care Provider. Call [facility] ([phone]) or report to the closest Emergency Room. Call 911 if necessary. 11/09/24 1127 <Electronically signed by Mayra Shah DO> Cosigner Signature (if applicable): CC: Dr. Chente Conn MD ~ Signed [facility] Work Phone: [phone] Discharge summary [facility] Medical Records Department [address] [place] [address] Emergency Department Summary 11/09/24 MR#: [id number] Acct: [id number] Name: KRISS MICHAEL Rep #:[id number] : 1980 44 From: Mayra Hidalgo PCP: Dr. Chente Conn MD Status:RE G ER Location: ED HPI History of Present Illness Chief Complaint: General Illness Informant: family Narrative Narrative: Patient is a 44-year-old male with history of cerebral palsy, chronic respiratory failure on tracheostomy, PEG tube dependent and pneumonia presentingfor tachycardia. Family states that he has day night reversal and this morning around 6 AM his heart rate was in the 130s. They gave him his normal 2mg Ativan around 7 AM however by 8 AM he was still had a heart rate in the 120s to 130s with a called EMS. They note he received his baclofen and gabapentin at 6 AM like normal. He has not yet had his morning phenobarbital, doxazosin or Reglan. They do notes that he is otherwise been in his normal state of health. He has had normal sputum production and secretions from his lungs. Family denies any changes in O2 requirements. He has had no difficulty with his ostomyand has had normal urine output as well as stool output. No increased residualsfrom his PEG tube. No fevers reported. Last weekendhe did have 1 episode of urinary retention but ultimately did urinate and has been fine since with n ormalurination. Upon arrival to the emergency room patient's heart rate normalized. No other complaints or concerns reported at this time. [facility] Medical History Hypogonadism in male Osteoporosis History of aspiration pneumonia Tachycardia Aspiration pneumonia Anxiety GERD (gastroesophageal reflux disease) Non-smoker On home oxygen therapy Pulmonary embolism Seizures Cerebral palsy Chronic respiratory failure with hypoxia Pseudomonas pneumonia Colostomy prolapse Cerebral palsy Acute dyspnea Anemia in chronic illness Upper GI bleeding (04/2020) Thrombocytopenia Pulmonary embolism on left (06/14/19) Iron deficiency anemia Obesity Tracheostomy in place Debility Chronic respiratory failure Edema Nonrheumatic mitral valve prolapse Redundant colon History of seizure disorder Home Medications ?Medication ?Instructions ?Recorded ?Last Taken ?Type phenobarbital 20 mg/5 mL (4 mg/mL) 60 mg G-tube 0830,2 100 SEIZURES 02/19/17 09/03/24 History oral elixir metoclopramide HCl 5 mg/5 mL oral 10 mg feeding tube 0 830,1600,2100 09/16/18 09/03/24 History solution STOMACH Cough Assist 1 dose .Route .MEDSUPPLY ass ist in 12/25/18 09/03/24 History clearing secretions gabapentin 250 mg/5 mL oral 500 mg G-tube 0000,0600,12 00,1800 09/26/19 09/03/24 History solution SEIZURES albuterol sulfate 2.5 mg/3 mL 2.5 mg inhalation Q4H [place] N Sob &/Or 11/27/20 09/03/24 History (0.083 %) solution for nebulization Wheezing doxazosin 2 mg tablet 2 mg PO 0830 BLOOD PRESSURE 11/30/21 09/03/24 History cholecalciferol (vitamin D3) 10 15 mcg feeding tube 08 30 SUPPLEMENT 03/24/22 09/03/24 History mcg/mL (400 unit/mL) oral drops acetaminophen 650 mg/20.3 mL oral 650 mg feeding tube 10/24/22 01/04/24 History suspension 0000,0600,1200,1800 PRN PAIN aluminum-mag hydroxide-simethicone 5 ml PO 0000,0600,1 200,1800 PRN 10/24/22 09/03/24 History 200 mg-200 mg-20 mg/5 mL oral susp ANTACID baclofen 20 mg tablet 20 mg feeding tube Q6H MUSCL E 12/10/22 09/03/24 History SPASMS ondansetron 4 mg disintegrating 4 mg PO Q8H PRN NAUSEA /VOMITING 12/13/22 Unknown Rx tablet #30 tabs esomeprazole magnesium 40 mg 40 mg G-tube BID ACID REF LUX 03/23/23 09/03/24 History granules delayed release for susp (Nexium Packet) ipratropium 0.5 mg-albuterol 3 mg 3 ml inhalation Q4H PRN SOB &/OR 03/23/23 09/03/24 History (2.5 mg base)/3 mL nebulization WHEEZING soln cetirizine 1 mg/mL oral solution 10 mg (10 mL) feeding tube 1600 09/30/23 09/03/24 Rx ALLERGIES #480 mL lorazepam 2 mg/mL oral concentrate 2 mg feeding tube D AILY PRN 01/04/24 01/03/24 History (Lorazepam Intensol) agitation food supplemt, lactose-reduced 1,000 ml PO QDAY 09/03/24 History 0.04 gram-1.05 kcal/mL oral liquid (Ensure Original) guaifenesin 200 mg/5 mL oral liquid 2 mg feeding tube 0830 04/04/24 09/03/24 History COUGH/CONGESTION testosterone (AndroGel) 1 pump topical QDAY #75 gram s 07/24/24 09/02/24 Rx plecanatide 3 mg tablet 3 mg G-tube 0830 BOWELS #90 tabs 09/12/24 Unknown Rx oxygen concentrator #1 ea 09/29/24 Unknown Rx montelukast 4 mg oral granules in 4 mg PO DAILY ASTHMA #90 ea 10/18/24 Unknown Rx packet (Singulair) Allergy/AdvReac Type Severity Reaction Status Date / Time chlorhexidine Allergy Rash Verified 06/15/24 13:51 cisapride monohydrate (From Allergy Rash Verified 06/15/24 13:51 Propulsid) house dust Allergy NEEDS Verified 06/15/24 13:51 FOLLOW-UP metronidazole (From Flagyl) Allergy Rash Verified 06/15/24 13:51 codeine AdvReac hallucinati Verified 06/15/24 13:51 ons morphine AdvReac Hallucinati Verified 06/15/24 13:51 ons Family History Mother Hepatitis C Hypertension HIV disease CVA (cerebral vascular accident) Liver disease Father H/O heart artery stent CAD (coronary artery disease) Atrial fibrillation Hypertension Esophageal cancer Grandmother Asthma Diverticulitis Diabetes Myocardial infarction Heart disease Surgical History History of eye surgery Heel cord lengthening History of soft tissue release History of open reduction and internal fixation (ORIF) procedure History of gastrostomy tube placement Status post insertion of intrathecal baclofen pump History of colostomy Colostomy in place Social History household members: family housing: house current occupational status: disabled Smoking Status: Never smoker alcohol intake: never substance use type: does not use caffeine: No ROS ROS ED ROS Narrative Mother provides a limited review of systems. Patient able to contribute due to baseline mental status. Review of Systems ROS Unobtainable: due to mental status Constitutional Constitutional ED: Denies fever(s) Cardiovascular Cardiovascular: Reports racing heartbeat Respiratory/Chest Respiratory/Chest: Denies cough or dyspnea Gastrointestinal Gastrointestinal: Denies diarrhea or vomiting Genitourinary Genitourinary ED: Denies hematuria or urinary frequency Integumentary Denies rash EXAM Physical Exam Const Vital Signs: 11/09/24 08:03 11/09/24 08:08 11/09/24 10:03 Temperature 98.5 F Temperature Source Axillary Pulse Rate 90 78 Respiratory Rate 16 16 Respiratory Pattern Normal Blood Pressure 143/96 H 143/90 H Blood Pressure Mean 111 107 Pulse Ox 97 95 Oxygen Delivery Method Mechanical Ventilator Room Air Oxygen Flow Rate (L/min) 5 Constitutional Narrative: Chronically ill-appearing, in his normal state of health. HEENT Reports moist mucous membranes HEENT Narrative: Protruding tongue?chronic for patient Eyes PERRL Neck supple Neck Narrative: Chronic tracheostomy in place, surrounding tissue is clean and dry Chest Wall inspection of chest normal and palpation of chest normal Resp clear to auscultation bilaterally Resp Narrative: Vent dependence however he is clear breath sounds throughout Auscultation: Negative for wheezes or diminished lung sounds Cardio regular rate, regular rhythm and no murmurs GI non-tender GI Narrative: Chronic feeding tube in place. Colostomy in place with chronic stomal hernia present. Stool and airin his colostomy bag. Abdomen distended but this is likely chronic Inspection: abdominal distention Auscultation: normoactive bowel sounds Palpation: soft; Negative for tender or guarding Extremity General Extremety ED: Yes edema General Extremity: edema Neuro Neuro Narrative: Atrophy associated with cerebral palsy. Patient at his neurologic baseline Sensorium / Orientation: alert Motor Exam: general weakness Skin no rashes or lesions noted and no wounds MDM MDM MDM Narrative Medical decision making narrative: Patient evaluated for tachyarrhythmia at home. Did not respond to his normal 40medications was brought in for further evaluation. Has acquired a car Plex medical history and quite susceptible to pneumonia as well as infection. Upon arrival to ER patient's heart rate has improved. His vital signs have normalized. I will checkbasic labs including urinalysis, CBC and CMP/lipase. As he is on his baseline oxygen with no changes sputum production is clear breath sounds I do not think requires a chest x-ray at this time. Mother is in agreement. Workup is unremarkable. He has no leukocytosis or left shift. He has chronic anemia with a hemoglobin 9.6 which is stable for him. CMP largely normal. Lipase is normal. Urinalysis not consistent withinfection. Patient continues to have stable vital signs in the emergency room. Will be discharged back home. The cause of his episode of tachycardia is not clear. Itcould be agitation related as family reports that he does not get along as well with his night nurse and she frequently suctions him. Patient wasgiving his morning Reglan and phenobarbital in the emergency room as scheduled. Lab Data Attestation: I reviewed the patient's lab results. Labs: Laboratory Results - last 24 hr 11/09/24 11/09/24 09:52 10:02 WBC 5.9 RBC 3.57 L Hgb 9.6 L Hct 30.2 L MCV 84.6 MCH 26.9 L MCHC 31.8 L RDW Std Deviation 47.3 H RDW Coeff of Emilee 15.5 H Plt Count 132 L MPV 9.4 Immature Gran % (Auto) 0.300 Neut % (Auto) 64.9 Lymph % (Auto) 23.1 Placer % (Auto) 7.6 Eos % (Auto) 3.9 Baso % (Auto) 0.2 Absolute Neuts (auto) 3.8 Absolute Lymphs (auto) 1.37 Nucleated RBC % 0 Sodium 137 Potassium 3.4 Chloride 102 Carbon Dioxide 23.1 Anion Gap 12 BUN 9 Creatinine 0.31 L Estim Creat Clear Calc 303.31 H Est GFR (MDRD) Non-Af 151 BUN/Creatinine Ratio 28.1 H Glucose 86 Calcium 7.6 Total Bilirubin < 0.15 AST 15 ALT 8 Alkaline Phosphatase 142 H Total Protein 6.9 Albumin 3.2 L Globulin 3.8 Albumin/Globulin Ratio 0.8 L Lipase 68 Urine Color Yellow Urine Clarity Clear Urine pH 6.5 Ur Specific Gage 1.010 Urine Protein 30 H Urine Glucose (UA) Normal Urine Ketones Negative Urine Occult Blood Negative Urine Nitrite Negative Urine Bilirubin Negative Urine Urobilinogen Normal Ur Leukocyte Esterase Negative Urine RBC 0 SEEN Urine WBC 0 SEEN Ur Squamous Epith Cells 0 SEEN Urine Bacteria 0 SEEN Urine Mucus 0 SEEN Discharge Plan Triage Chief Complaint: General Illness ED Provider: Mayra Shah Dx/Rx/DC Orders Clinical Impression: Tachycardia, Cerebral palsy, Iron deficiency anemia Instructions: ED Anemia, Type Not Specified (Adult) Prescriptions: No Action albuterol sulfate 2.5 mg /3 mL (0.083 %) solution for nebulization 2.5 mg inhalation Q4H PRN (Reason: Sob &/Or Wheezing) cetirizine 1 mg/mL solution 10 mg feeding tube 1600 Qty: 480 11RF guaifenesin 200 mg/5 mL liquid 2 mg feeding tube 0830 Patient Comments: mom states giving 0.5ml to help with mucus plugs at 9am Ensure Original 0.04-1.05 gram-kcal/mL liquid 1,000 ml PO QDAY Rx Instructions: continuous g-tube (DME) oxygen concentrator See Rx Instructions .Route .MEDSUPPLY Qty: 1 0RF Rx Instructions: 1 dose MEDSUPPLY; As directed to maintain oxygen saturations of 89-92% metoclopramide HCl 5 mg/5 mL solution 10 mg feeding tube 0830,1600,2100 phenobarbital 20 MG/5 ML elixir 60 mg G-tube 0830,2100 Cough Assist 1 dose .Route .MEDSUPPLY Rx Instructions: Inspiratory and Expiratory times of 20-40 seconds with a 1-2 second pause. gabapentin 250 MG/5 ML solution 500 mg [...] 7ML PULSE 69>: GIVE THE WHOLE 10ML doxazosin 2 mg tablet 2 mg GT 0830 cholecalciferol (vitamin D3) 10 mcg/mL (400 unit/mL) drops 15 mcg feeding tube 0830 alum-mag hydroxide-simeth 200-200-20 mg/5 mL suspension 5 ml PO 0000,0600,1200,1800 PRN (Reason: ANTACID) acetaminophen 650 mg/20.3 mL suspension 650 mg feeding tube 0000,0600,1200,1800 PRN (Reason: PAIN ) baclofen 20 mg tablet 20 mg feeding tube Q6H Patient Comments: gets compounded suspension from [facility]. ondansetron 4 mg tablet,disintegrating 4 mg PO Q8H PRN (Reason: NAUSEA/VOMITING) Qty: 30 0RF ipratropium-albuterol 0.5 mg-3 mg(2.5 mg base)/3 mL solution for nebulization 3 ml inhalation Q4H PRN (Reason: SOB &/OR WHEEZING) esomeprazole magnesium [Nexium Packet] [address] for susp in packet 40 mg G-tube BID lorazepam [Lorazepam Intensol] 2 mg/mL concentrate 2 mg feeding tube DAILY PRN (Reason: agitation) testosterone [AndroGel] 20.25 mg/1.25 gram (1.62 %) gel in metered-dose pump 1 pump topical QDAY Qty: 75 5RF Rx Instructions: apply 1 pump amount over max area of ONE upper arm and shoulder plecanatide 3 mg tablet 3 mg GT 0830 Qty: 90 2RF montelukast [Singulair] 4 mg granules in packet 4 mg PO DAILY Qty: 90 3RF Patient Comments: NEW RX THAT HAS NOT BEEN STARTED Primary Care Provider: Chente Conn Referrals: Chente Conn MD [Primary Care Provider, Family Practice] Activity Restrictions/Additional Instructions: Mo's workup today was largely normal and reassuring. Because of his elevatedheart rate prior to arrival is not clear. It could be from agitation. At this time he does not have signs of developing infection. If he has any worsening symptoms or further concerns please do not hesitate to return the emergency room. Print Language: Tanzanian Disposition Disposition: Home, Self Care What to do if you have Problems For any increased pain, shortness of breath, bleeding, nausea or vomiting, chestpain, or any unexpected problems, contact your Primary Care Provider. Call [facility] ([phone]) or report tothe closest Emergency Room. Call 911 if necessary. 11/09/24 1127 Cosigner Signature (if applicable): CC: Dr. Chente Conn MD ~ Signed [facility]07-16-2025 Discharge summary [facility] Medical Records Department [address] [place] [address] Discharge Summary 09/06/24 0755 MR#: [id number] Acct: [id number] Name: KRISS MICHAEL Rep #:[id number] : 1980 44 From: Torey James DO PCP: Dr. Chente Conn MD Status:AD M BENJAMIN Location: ICU ICU- Providers Date of Admission: 09/03/24 Primary Care Physician: Dr. Chente Conn MD Reason For Visit: RESPITE CARE Diagnosis Discharge Diagnosis (1) Respite care available: Status: Acute Plan Respite care admission with underlying significant spastic quadriplegia with cerebral palsy with chronic hypoxic and hypercarbic respiratory failure with tracheostomy, ventilator dependent with chronic dysphagia status post PEG tube placement: * Will admit to the ICU as an MS status for more aggressive care given complicated history, will continue routine ostomy care, barrier cream as needed, maintain on aspiration precautions, continue home tube feed per home regimen, continue aggressive pulmonary toileting regimen in addition to pulmonary recommended Mucinex, Singulair, Zyrtec as well as DuoNeb therapies with attempt maintain oxygen saturation 93% or higher, will continue patient home baclofen as well as Ativan as needed regimen inaddition to metoclopramide with his tube feeds, continue home vent settings, continue chronic Augustin. Chronic medical conditions: * Chronic normocytic anemia with history of previous GI bleeds: Most recent hemoglobin noted 08/22/2024 with hemoglobin 10.1, MCV 85.3, baseline hemoglobin 9- 10, stable, will obtain upon admission and defer further labs unless necessary. Will maintain on PPI. * Seizure disorder: Will continue patient phenobarbital and gabapentin regimen. * History of VTE: Patient with previous history of DVT, PE however had significant issues with thrombocytopenia eventually transition to Lovenox and completed therapy, will maintain on SCDs given respect care admission. If any concerns arise certainly may transition to chemoprophylaxis. * Chronic asthma with allergic rhinitis: Will continue oxygen supplementation for chronic regimen as noted above, will maintain on home inhaler regimen with as needed breakthrough albuterol if necessary, will continue patient's montelukast, cetirizine home regimen. * GERD: Will maintain on patient PPI. * Hypotestosteronism, hypogonadism: Will continue patient home testosterone topical application. Tachycardia: Is a chronic problem that appears to be more reactive to * Is being mad or other issues. So far that is currently improved. Patient did receive Ativan to help calm him down this is something that parents been doing home which we will continue here if needed. DVT prophylaxis: Given this is respite care will defer prophylaxis and attempt SCDs only if patientwilling to tolerate. CODE STATUS: Full code. Medications at Discharge Home Medications phenobarbital 20 [...] inhalation Q4H PRN Sob &/Or Wheezing 11/27/20 doxazosin 2 mg tablet 2 mg PO 0830 BLOOD PRESSURE 11/30/21 cholecalciferol (vitamin D3) 10 mcg/mL (400 unit/mL) oral drops 15 mcg feeding tube 0830 [id number]/31/23 acetaminophen 650 mg/20.3 mL oral suspension 650 mg feeding tube 0000,0600,1200,1800 PRN PAIN 10/24/22 aluminum-mag hydroxide-simethicone 200 mg-200 mg-20 mg/5 mL oral susp 5 ml PO 0000,0600,1200,1800 PRN ANTACID 10/24/22 baclofen 20 mg tablet 20 mg feeding tube Q6H MUSCLE SPASMS 12/10/22 ondansetron 4 mg disintegrating tablet 4 mg PO Q8H PRN NAUSEA/VOMITING #30 tabs 12/13/22 esomeprazole magnesium 40 mg granules delayed release for susp (Nexium Packet) 40 mg G-tube BID ACID REFLUX 03/23/23 ipratropium 0.5 mg-albuterol 3 mg (2.5 mg base)/3 mL nebulization soln 3 ml inhalation Q4H PRN SOB &/OR WHEEZING 03/23/23 cetirizine 1 mg/mL oral solution 10 mg (10 mL) feeding tube 1600 ALLERGIES #480 mL 09/30/23 montelukast 4 mg oral granules in packet (Singulair) 4 mg PO DAILY ASTHMA #90 ea 09/30/23 lorazepam 2 mg/mL oral concentrate (Lorazepam Intensol) 2 mg feeding tube DAILY PRN agitation 01/04/24 food supplemt, lactose-reduced 0.04 gram-1.05 kcal/mL oral liquid (Ensure Original) 1,000 ml PO QDAY 04/04/24 guaifenesin 200 mg/5 mL oral liquid 2 mg feeding tube 0830 COUGH/CONGESTION 04/04/24 plecanatide 3 mg tablet 3 mg G-tube 0830 BOWELS #90 tabs 04/05/24 testosterone (AndroGel) 1 pump topical QDAY #75 grams 07/24/24 Hospital Course Operations None Procedures None Summary of Care Provided Hospital Course: Patient mated for respite care. Patient was maintained on open ventilator at night, T-piece during the day. Patient did have some tachycardia initially but did receive lorazepam per instructions fromthe family. Patient's course was uncomplicated and patient to be discharged today. Weight / BMI Weight Weight: 84.9 kg Body Mass Index (BMI) 36.5 D/C Instructions DC O2, CPAP, BIPAP Needs Home O2 Discharge instructions: Yes Type of respiratory needs?: Oxygen Oxygen frequency: ContinuousContinuous oxygen liters per minute: Ventilator and trach mask DC home with Oxygen: Yes Home O2 MD Review: I have reviewed the oxygen testing, and the patient qualifies for home oxygen equipment and portability. The patient is mobile in the home and the community. Meaningful Use Info Meaningful Use Meaningful Use Diagnoses (Choose all that apply): None applicable Discharge Plan Admission Admit Date/Time: 09/03/24 13:28 Primary Reason for Your Visit: Respite care Attending Provider: Torey James Primary Care Provider: Chente Conn Consulting Providers: Tania Randle Discharge Orders/Prescriptions Prescriptions: Continued albuterol sulfate 2.5 mg /3 mL (0.083 %) solution for nebulization 2.5 mg inhalation Q4H PRN (Reason: Sob &/Or Wheezing) cetirizine 1 mg/mL solution 10 mg feeding tube 1600 Qty: 480 11RF montelukast [Singulair] 4 mg granules in packet 4 mg PO DAILY Qty: 90 3RF Patient Comments: NEW RX THAT HAS NOT BEEN STARTED guaifenesin 200 mg/5 mL liquid 2 mg feeding tube 0830 Patient Comments: mom states giving 0.5ml to help with mucus plugs at 9am Ensure Original 0.04-1.05 gram-kcal/mL liquid 1,000 ml PO QDAY Rx Instructions: continuous g-tube metoclopramide HCl 5 mg/5 mL solution 10 mg feeding tube 0830,1600,2100 phenobarbital 20 MG/5 ML elixir 60 mg G-tube 0830,2100 Cough Assist 1 dose .Route .MEDSUPPLY Rx Instructions: Inspiratory and Expiratory times of 20-40 seconds with a 1-2 second pause. oxygen concentrator 1 dose .Route .MEDSUPPLY Rx Instructions: As directed gabapentin 250 MG/5 ML solution 500 mg [...] 7ML PULSE 69>: GIVE THE WHOLE 10ML doxazosin 2 mg tablet 2 mg GT 0830 cholecalciferol (vitamin D3) 10 mcg/mL (400 unit/mL) drops 15 mcg feeding tube 0830 alum-mag hydroxide-simeth 200-200-20 mg/5 mL suspension 5 ml PO 0000,0600,1200,1800 PRN (Reason: ANTACID) acetaminophen 650 mg/20.3 mL suspension 650 mg feeding tube 0000,0600,1200,1800 PRN (Reason: PAIN ) baclofen 20 mg tablet 20 mg feeding tube Q6H Patient Comments: gets compounded suspension from [facility]. ondansetron 4 mg tablet,disintegrating 4 mg PO Q8H PRN (Reason: NAUSEA/VOMITING) Qty: 30 0RF ipratropium-albuterol 0.5 mg-3 mg(2.5 mg base)/3 mL solution for nebulization 3 ml inhalation Q4H PRN (Reason: SOB &/OR WHEEZING) esomeprazole magnesium [Nexium Packet] [address] for susp in packet 40 mg G-tube BID lorazepam [Lorazepam Intensol] 2 mg/mL concentrate 2 mg feeding tube DAILY PRN (Reason: agitation) plecanatide 3 mg tablet 3 mg GT 0830 Qty: 90 2RF testosterone [AndroGel] 20.25 mg/1.25 gram (1.62 %) gel in metered-dose pump 1 pump topical QDAY Qty: 75 5RF Rx Instructions: apply 1 pump amount over max area of ONE upper arm and shoulder Referrals / Follow Up: Chente Conn MD [Primary Care Provider] - Disposition Disposition (needs filled in before D/C Order can be placed): Home, Self Care Charges/Coding Visit Charges Inpatient E&M: 91173 Disch Hosp 09/06/24 1031 Cosigner Signature (if applicable): CC: Dr. Torey James DO; Dr. Chente Conn MD~ Signed [facility]07-16-2025 Discharge summary Author Torey James [facility] Note Date/Time September 06, 2024 10:3 1am [facility] Medical Records Department [address] [place] [address] Discharge Summary 09/06/24 0755 MR#: [id number] Acct: [id number] Name: KRISS MICHAEL Rep #:[id number] : 1980 44 From: Torey James DO PCP: Dr. Chente Conn MD Status:AD M BENJAMIN Location: ICU ICU07-1 Providers Date of Admission: 09/03/24 Primary Care Physician: Dr. Chente Conn MD Reason For Visit: RESPITE CARE Diagnosis Discharge Diagnosis (1) Respite care available: Status: Acute Plan Respite care admission with underlying significant spastic quadriplegia with cerebral palsy with chronic hypoxic and hypercarbic respiratory failure with tracheostomy, ventilator dependent with chronic dysphagia status post PEG tube placement: * Will admit to the ICU as an MS status for more aggressive care given complicated history, will continue routine ostomy care, barrier cream as needed, maintain on aspiration precautions, continue home tube feed per home regimen, continue aggressive pulmonary toileting regimen in addition to pulmonary recommended Mucinex, Singulair, Zyrtec as well as DuoNeb therapies with attempt maintain oxygen saturation 93% or higher, will continue patient home baclofen as well as Ativan as needed regimen in addition to metoclopramide with his tube feeds, continue home vent settings, continue chronic Augustin. Chronic medical conditions: * Chronic normocytic anemia with history of previous GI bleeds: Most recent hemoglobin noted 08/22/2024 with hemoglobin 10.1, MCV 85.3, baseline hemoglobin 9- 10, stable, will obtain upon admission and defer further labs unless necessary. Will maintain on PPI. * Seizure disorder: Will continue patient phenobarbital and gabapentin regimen. * History of VTE: Patient with previous history of DVT, PE however had significant issues with thrombocytopenia eventually transition to Lovenox and completed therapy, will maintain on SCDs given respect care admission. If any concerns arise certainly may transition to chemoprophylaxis. * Chronic asthma with allergic rhinitis: Will continue oxygen supplementation for chronic regimen as noted above, will maintain on home inhaler regimen with as needed breakthrough albuterol if necessary, will continue patient's montelukast, cetirizine home regimen. * GERD: Will maintain on patient PPI. * Hypotestosteronism, hypogonadism: Will continue patient home testosterone topical application. Tachycardia: Is a chronic problem that appears to be more reactive to * Is being mad or other issues. So far that is currently improved. Patient did receive Ativan to help calm him down this is something that parents been doing home which we will continue here if needed. DVT prophylaxis: Given this is respite care will defer prophylaxis and attempt SCDs only if patient willing to tolerate. CODE STATUS: Full code. Medications at Discharge Home Medications phenobarbital 20 [...] inhalation Q4H PRN Sob &/Or Wheezing 11/27/20 doxazosin 2 mg tablet 2 mg PO 0830 BLOOD PRESSURE 11/30/21 cholecalciferol (vitamin D3) 10 mcg/mL (400 unit/mL) oral drops 15 mcg feeding tube 0830 SUPPLEMENT 03/24/22 acetaminophen 650 mg/20.3 mL oral suspension 650 mg feeding tube 0000,0600,1200,1800 PRN PAIN 10/24/22 aluminum-mag hydroxide-simethicone 200 mg-200 mg-20 mg/5 mL oral susp 5 ml PO 0000,0600,1200,1800 PRN ANTACID 10/24/22 baclofen 20 mg tablet 20 mg feeding tube Q6H MUSCLE SPASMS 12/10/22 ondansetron 4 mg disintegrating tablet 4 mg PO Q8H PRN NAUSEA/VOMITING #30 tabs 12/13/22 esomeprazole magnesium 40 mg granules delayed release for susp (Nexium Packet) 40 mg G-tube BID ACID REFLUX 03/23/23 ipratropium 0.5 mg-albuterol 3 mg (2.5 mg base)/3 mL nebulization soln 3 ml inhalation Q4H PRN SOB &/OR WHEEZING 03/23/23 cetirizine 1 mg/mL oral solution 10 mg (10 mL) feeding tube 1600 ALLERGIES #480 mL 09/30/23 montelukast 4 mg oral granules in packet (Singulair) 4 mg PO DAILY ASTHMA #90 ea 09/30/23 lorazepam 2 mg/mL oral concentrate (Lorazepam Intensol) 2 mg feeding tube DAILY PRN agitation 01/04/24 food supplemt, lactose-reduced 0.04 gram-1.05 kcal/mL oral liquid (Ensure Original) 1,000 ml PO QDAY 04/04/24 guaifenesin 200 mg/5 mL oral liquid 2 mg feeding tube 0830 COUGH/CONGESTION 04/04/24 plecanatide 3 mg tablet 3 mg G-tube 0830 BOWELS #90 tabs 04/05/24 testosterone (AndroGel) 1 pump topical QDAY #75 grams 07/24/24 Hospital Course Operations None Procedures None Summary of Care Provided Hospital Course: Patient mated for respite care. Patient was maintained on open ventilator at night, T-piece during the day. Patient did have some tachycardia initially but did receive lorazepam per instructions from the family. Patient's course was uncomplicated and patient to be discharged today. Weight / BMI Weight Weight: 84.9 kg Body Mass Index (BMI) 36.5 D/C Instructions DC O2, CPAP, BIPAP Needs Home O2 Discharge instructions: Yes Type of respiratory needs?: Oxygen Oxygen frequency: Continuous Continuous oxygen liters per minute: Ventilator and trach mask DC home with Oxygen: Yes Home O2 MD Review: I have reviewed the oxygen testing, and the patient qualifies for home oxygen equipment and portability. The patient is mobile in the home and the community. Meaningful Use Info Meaningful Use Meaningful Use Diagnoses (Choose all that apply): None applicable Discharge Plan Admission Admit Date/Time: 09/03/24 13:28 Primary Reason for Your Visit: Respite care Attending Provider: Torey James Primary Care Provider: Chente Conn Consulting Providers: Tania Randle Discharge Orders/Prescriptions Prescriptions: Continued albuterol sulfate 2.5 mg /3 mL (0.083 %) solution for nebulization 2.5 mg inhalation Q4H PRN (Reason: Sob &/Or Wheezing) cetirizine 1 mg/mL solution 10 mg feeding tube 1600 Qty: 480 11RF montelukast [Singulair] 4 mg granules in packet 4 mg PO DAILY Qty: 90 3RF Patient Comments: NEW RX THAT HAS NOT BEEN STARTED guaifenesin 200 mg/5 mL liquid 2 mg feeding tube 0830 Patient Comments: mom states giving 0.5ml to help with mucus plugs at 9am Ensure Original 0.04-1.05 gram-kcal/mL liquid 1,000 ml PO QDAY Rx Instructions: continuous g-tube metoclopramide HCl 5 mg/5 mL solution 10 mg feeding tube 0830,1600,2100 phenobarbital 20 MG/5 ML elixir 60 mg G-tube 0830,2100 Cough Assist 1 dose .Route .MEDSUPPLY Rx Instructions: Inspiratory and Expiratory times of 20-40 seconds with a 1-2 second pause. oxygen concentrator 1 dose .Route .MEDSUPPLY Rx Instructions: As directed gabapentin 250 MG/5 ML solution 500 mg [...] 7ML PULSE 69>: GIVE THE WHOLE 10ML doxazosin 2 mg tablet 2 mg GT 0830 cholecalciferol (vitamin D3) 10 mcg/mL (400 unit/mL) drops 15 mcg feeding tube 0830 alum-mag hydroxide-simeth 200-200-20 mg/5 mL suspension 5 ml PO 0000,0600,1200,1800 PRN (Reason: ANTACID) acetaminophen 650 mg/20.3 mL suspension 650 mg feeding tube 0000,0600,1200,1800 PRN (Reason: PAIN ) baclofen 20 mg tablet 20 mg feeding tube Q6H Patient Comments: gets compounded suspension from [facility]. ondansetron 4 mg tablet,disintegrating 4 mg PO Q8H PRN (Reason: NAUSEA/VOMITING) Qty: 30 0RF ipratropium-albuterol 0.5 mg-3 mg(2.5 mg base)/3 mL solution for nebulization 3 ml inhalation Q4H PRN (Reason: SOB &/OR WHEEZING) esomeprazole magnesium [Nexium Packet] [address] for susp in packet 40 mg G-tube BID lorazepam [Lorazepam Intensol] 2 mg/mL concentrate 2 mg feeding tube DAILY PRN (Reason: agitation) plecanatide 3 mg tablet 3 mg GT 0830 Qty: 90 2RF testosterone [AndroGel] 20.25 mg/1.25 gram (1.62 %) gel in metered-dose pump 1 pump topical QDAY Qty: 75 5RF Rx Instructions: apply 1 pump amount over max area of ONE upper arm and shoulder Referrals / Follow Up: Chente Conn MD [Primary Care Provider] - Disposition Disposition (needs filled in before D/C Order can be placed): Home, Self Care Charges/Coding Visit Charges Inpatient E&M: 89643 Disch Hosp 09/06/24 1031 <Electronically signed by Torey James DO> Cosigner Signature (if applicable): CC: Dr. Torey James DO; Dr. Chente Conn MD~ Signed [facility] Work Phone: 1(642) 957-192007-15-2025 Progress note Author Torey James [facility] Note Date/Time September 05, 2024 12:2 8pm [facility] Medical Records Department [address] [place] [address] Progress Note - Hospitalist 09/05/24716 MR#: [id number] Acct: [id number] Name: KRISS MICHAEL Rep #:[id number] : 1980 44 From: Torey James DO PCP: Dr. Chente Conn MD Status:AD M BENJAMIN Location: ICU ICU07-1 Reason for Visit Chief Complaint: Respite care Subjective Subjective Heart rates been doing well today. Objective Data Objective Data Vital Signs: Vital Signs Temp Pulse Resp BP Pulse Ox O2 Del Method O2 Flow Rate 36.3 C L 83 14 125/75 H 96 Trach Collar 10 09/05/24 06:00 09/05/24 06:00 09/05/24 06:00 09/05/24 06:00 09/05/24 06:00 09/05/24 06:00 09/05/24 05:38 FiO2 35 09/05/24 05:38 Oxygen Flow Rate (L/min) 10 Oxygen Delivery Method Trach Collar Weight: 84.9 kg Body Mass Index (BMI) 36.5 Intake & Output: Intake and Output for Last 24 Hours 09/03/24 09/04/24 09/05/24 23:59 23:59 23:59 Intake Total 952.5 / 952.5 107.5 / 107.5 Output Total 400 / 400 Balance 552.5 / 552.5 107.5 / 107.5 Physical Exam Const Constitutional Narrative: Awake. Resp Resp Narrative: Coarse breath sounds bilaterally. GI GI Narrative: Nontender. Nondistended Extremity Extremity Narrative: Plantar flexion contracture Assessment & Plan Assessment/Plan (1) Respite care available: PLAN: Plan Respite care admission with underlying significant spastic quadriplegia with cerebral palsy with chronic hypoxic and hypercarbic respiratory failure with tracheostomy, ventilator dependent with chronic dysphagia status post PEG tube placement: * Will admit to the ICU as an MS status for more aggressive care given complicated history, will continue routine ostomy care, barrier cream as needed, maintain on aspiration precautions, continue home tube feed per home regimen, continue aggressive pulmonary toileting regimen in addition to pulmonary recommended Mucinex, Singulair, Zyrtec as well as DuoNeb therapies with attempt maintain oxygen saturation 93% or higher, will continue patient home baclofen as well as Ativan as needed regimen in addition to metoclopramide with his tube feeds, continue home vent settings, continue chronic Augustin. Chronic medical conditions: * Chronic normocytic anemia with history of previous GI bleeds: Most recent hemoglobin noted 08/22/2024 with hemoglobin 10.1, MCV 85.3, baseline hemoglobin 9- 10, stable, will obtain upon admission and defer further labs unless necessary. Will maintain on PPI. * Seizure disorder: Will continue patient phenobarbital and gabapentin regimen. * History of VTE: Patient with previous history of DVT, PE however had significant issues with thrombocytopenia eventually transition to Lovenox and completed therapy, will maintain on SCDs given respect care admission. If any concerns arise certainly may transition to chemoprophylaxis. * Chronic asthma with allergic rhinitis: Will continue oxygen supplementation for chronic regimen as noted above, will maintain on home inhaler regimen with as needed breakthrough albuterol if necessary, will continue patient's montelukast, cetirizine home regimen. * GERD: Will maintain on patient PPI. * Hypotestosteronism, hypogonadism: Will continue patient home testosterone topical application. Tachycardia: Is a chronic problem that appears to be more reactive to * Is being mad or other issues. So far that is currently improved. Patient did receive Ativan to help calm him down this is something that parents been doing home which we will continue here if needed. DVT prophylaxis: Given this is respite care will defer prophylaxis and attempt SCDs only if patient willing to tolerate. CODE STATUS: Full code. Patient remaining stable. Patient to remain in the hospital until family is able to take him back. No active medical issues at this time. Charges/Coding Visit Charges Inpatient E&M: 97848 Subs Hosp L2 09/05/24 1228 <Electronically signed by Torey James DO> Cosigner Signature (if applicable): CC: ~ Signed [facility] Work Phone: 1(941) 677-783507-15-2025 Progress note [facility] Medical Records Department [address] [place] [address] Progress Note - Hospitalist 09/05/24 0717 MR#: [id number] Acct: [id number] Name: KRISS MICHAEL Rep #:[id number] : 1980 44 From: Torey James DO PCP: Dr. Chente Conn MD Status:AD M BENJAMIN Location: ICU ICU07-1 Reason for Visit Chief Complaint: Respite care Subjective Subjective Heart rates been doing well today. Objective Data Objective Data Vital Signs: Vital Signs Temp Pulse Resp BP Pulse Ox O2 Del Method O2 Flow Rate 36.3 C L 83 14 125/75 H 96 Trach Collar 10 09/05/24 06:00 09/05/24 06:00 09/05/24 06:00 09/05/24 06:00 09/05/24 06:00 09/05/24 06:00 09/05/24 05:38 FiO2 35 09/05/24 05:38 Oxygen Flow Rate (L/min) 10 Oxygen Delivery Method Trach Collar Weight: 84.9 kg Body Mass Index (BMI) 36.5 Intake & Output: Intake and Output for Last 24 Hours 09/03/24 09/04/24 09/05/24 23:59 23:59 23:59 Intake Total 952.5 / 952.5 107.5 / 107.5 Output Total 400 / 400 Balance 552.5 / 552.5 107.5 / 107.5 Physical Exam Const Constitutional Narrative: Awake. Resp Resp Narrative: Coarse breath sounds bilaterally. GI GI Narrative: Nontender. Nondistended Extremity Extremity Narrative: Plantar flexion contracture Assessment & Plan Assessment/Plan (1) Respite care available: PLAN: Plan Respite care admission with underlying significant spastic quadriplegia with cerebral palsy with chronic hypoxic and hypercarbic respiratory failure with tracheostomy, ventilator dependent with chronic dysphagia status post PEG tube placement: * Will admit to the ICU as an MS status for more aggressive care given complicated history, will continue routine ostomy care, barrier cream as needed, maintain on aspiration precautions, continue home tube feed per home regimen, continue aggressive pulmonary toileting regimen in addition to pulmonary recommended Mucinex, Singulair, Zyrtec as well as DuoNeb therapies with attempt maintain oxygen saturation 93% or higher, will continue patient home baclofen as well as Ativan as needed regimen inaddition to metoclopramide with his tube feeds, continue home vent settings, continue chronic Augustin. Chronic medical conditions: * Chronic normocytic anemia with history of previous GI bleeds: Most recent hemoglobin noted 08/22/2024 with hemoglobin 10.1, MCV 85.3, baseline hemoglobin 9- 10, stable, will obtain upon admission and defer further labs unless necessary. Will maintain on PPI. * Seizure disorder: Will continue patient phenobarbital and gabapentin regimen. * History of VTE: Patient with previous history of DVT, PE however had significant issues with thrombocytopenia eventually transition to Lovenox and completed therapy, will maintain on SCDs given respect care admission. If any concerns arise certainly may transition to chemoprophylaxis. * Chronic asthma with allergic rhinitis: Will continue oxygen supplementation for chronic regimen as noted above, will maintain on home inhaler regimen with as needed breakthrough albuterol if necessary, will continue patient's montelukast, cetirizine home regimen. * GERD: Will maintain on patient PPI. * Hypotestosteronism, hypogonadism: Will continue patient home testosterone topical application. Tachycardia: Is a chronic problem that appears to be more reactive to * Is being mad or other issues. So far that is currently improved. Patient did receive Ativan to help calm him down this is something that parents been doing home which we will continue here if needed. DVT prophylaxis: Given this is respite care will defer prophylaxis and attempt SCDs only if patientwilling to tolerate. CODE STATUS: Full code. Patient remaining stable. Patient to remain in the hospital until family is able to take him back. No active medical issues at this time. Charges/Coding Visit Charges Inpatient E&M: 90373 Subs Hosp L2 09/05/24 5922 Cosigner Signature (if applicable): CC: ~ Signed [facility]07-14-2025 Progress note Author Torey James [facility] Note Date/Time September 04, 2024 11:0 4am [facility] Medical Records Department [address] [place] [address] Progress Note - Hospitalist 09/04/24 0741 MR#: [id number] Acct: [id number] Name: KRISS MICHAEL Rep #:[id number] : 1980 44 From: Torey James DO PCP: Dr. Chente Conn MD Status:AD M BENJAMNI Location: ICU ICU07-1 Reason for Visit Chief Complaint: Respite care Subjective Subjective No issues overnight. Objective Data Objective Data Vital Signs: Vital Signs Temp Pulse Resp BP Pulse Ox O2 Del Method O2 Flow Rate 35.8 C L 94 16 122/97 H 98 T-piece 2 09/04/24 04:00 09/04/24 05:07 09/04/24 05:07 09/04/24 04:00 09/04/24 05:40 09/04/24 05:40 09/04/24 05:40 FiO2 28 09/04/24 04:00 Oxygen Flow Rate (L/min) 2 Oxygen Delivery Method T-piece Weight: 84.9 kg Body Mass Index (BMI) 36.7 Physical Exam Const Constitutional Narrative: Nonverbal. On oxygen through trach. Afebrile. Resp normal respiratory effort and no retractions Cardio regular rate, regular rhythm, S1 normal heart sound and S2 normal heart sound GI normal to inspection, nondistended, normoactive bowel sounds, soft to palpation,non-tender and non-distended Extremity Extremity Narrative: Plantar contractions bilaterally. Assessment & Plan Assessment/Plan (1) Respite care available: PLAN: Plan Respite care admission with underlying significant spastic quadriplegia with cerebral palsy with chronic hypoxic and hypercarbic respiratory failure with tracheostomy, ventilator dependent with chronic dysphagia status post PEG tube placement: * Will admit to the ICU as an MS status for more aggressive care given complicated history, will continue routine ostomy care, barrier cream as needed, maintain on aspiration precautions, continue home tube feed per home regimen, continue aggressive pulmonary toileting regimen in addition to pulmonary recommended Mucinex, Singulair, Zyrtec as well as DuoNeb therapies with attempt maintain oxygen saturation 93% or higher, will continue patient home baclofen as well as Ativan as needed regimen in addition to metoclopramide with his tube feeds, continue home vent settings, continue chronic Augustin. Chronic medical conditions: * Chronic normocytic anemia with history of previous GI bleeds: Most recent hemoglobin noted 08/22/2024 with hemoglobin 10.1, MCV 85.3, baseline hemoglobin 9- 10, stable, will obtain upon admission and defer further labs unless necessary. Will maintain on PPI. * Seizure disorder: Will continue patient phenobarbital and gabapentin regimen. * History of VTE: Patient with previous history of DVT, PE however had significant issues with thrombocytopenia eventually transition to Lovenox and completed therapy, will maintain on SCDs given respect care admission. If any concerns arise certainly may transition to chemoprophylaxis. * Chronic asthma with allergic rhinitis: Will continue oxygen supplementation for chronic regimen as noted above, will maintain on home inhaler regimen with as needed breakthrough albuterol if necessary, will continue patient's montelukast, cetirizine home regimen. * GERD: Will maintain on patient PPI. * Hypotestosteronism, hypogonadism: Will continue patient home testosterone topical application. DVT prophylaxis: Given this is respite care will defer prophylaxis and attempt SCDs only if patient willing to tolerate. CODE STATUS: Full code. Charges/Coding Visit Charges Inpatient E&M: 90115 Subs Hosp L2 09/04/24 1104 <Electronically signed by Torey James DO> Cosigner Signature (if applicable): CC: ~ Signed [facility] Work Phone: [phone]) 925-986407-14-2025 Progress note [facility] Medical Records Department [address] [place] [address] Progress Note - Hospitalist 09/04/24 0741 MR#: [id number] Acct: [id number] Name: KRISS MICHAEL Rep #:[id number] : 1980 44 From: Torey James DO PCP: Dr. Chente Conn MD Status:AD M BENJAMIN Location: ICU ICU07-1 Reason for Visit Chief Complaint: Respite care Subjective Subjective No issues overnight. Objective Data Objective Data Vital Signs: Vital Signs Temp Pulse Resp BP Pulse Ox O2 Del Method O2 Flow Rate 35.8 C L 94 16 122/97 H 98 T-piece 2 09/04/24 04:00 09/04/24 05:07 09/04/24 05:07 09/04/24 04:00 09/04/24 05:40 09/04/24 05:40 09/04/24 05:40 FiO2 28 09/04/24 04:00 Oxygen Flow Rate (L/min) 2 Oxygen Delivery Method T-piece Weight: 84.9 kg Body Mass Index (BMI) 36.7 Physical Exam Const Constitutional Narrative: Nonverbal. On oxygen through trach. Afebrile. Resp normal respiratory effort and no retractions Cardio regular rate, regular rhythm, S1 normal heart sound and S2 normal heart sound GI normal to inspection, nondistended, normoactive bowel sounds, soft to palpation,non-tender and non-distended Extremity Extremity Narrative: Plantar contractions bilaterally. Assessment & Plan Assessment/Plan (1) Respite care available: PLAN: Plan Respite care admission with underlying significant spastic quadriplegia with cerebral palsy with chronic hypoxic and hypercarbic respiratory failure with tracheostomy, ventilator dependent with chronic dysphagia status post PEG tube placement: * Will admit to the ICU as an MS status for more aggressive care given complicated history, will continue routine ostomy care, barrier cream as needed, maintain on aspiration precautions, continue home tube feed per home regimen, continue aggressive pulmonary toileting regimen in addition to pulmonary recommended Mucinex, Singulair, Zyrtec as well as DuoNeb therapies with attempt maintain oxygen saturation 93% or higher, will continue patient home baclofen as well as Ativan as needed regimen inaddition to metoclopramide with his tube feeds, continue home vent settings, continue chronic Augustin. Chronic medical conditions: * Chronic normocytic anemia with history of previous GI bleeds: Most recent hemoglobin noted 08/22/2024 with hemoglobin 10.1, MCV 85.3, baseline hemoglobin 9- 10, stable, will obtain upon admission and defer further labs unless necessary. Will maintain on PPI. * Seizure disorder: Will continue patient phenobarbital and gabapentin regimen. * History of VTE: Patient with previous history of DVT, PE however had significant issues with thrombocytopenia eventually transition to Lovenox and completed therapy, will maintain on SCDs given respect care admission. If any concerns arise certainly may transition to chemoprophylaxis. * Chronic asthma with allergic rhinitis: Will continue oxygen supplementation for chronic regimen as noted above, will maintain on home inhaler regimen with as needed breakthrough albuterol if necessary, will continue patient's montelukast, cetirizine home regimen. * GERD: Will maintain on patient PPI. * Hypotestosteronism, hypogonadism: Will continue patient home testosterone topical application. DVT prophylaxis: Given this is respite care will defer prophylaxis and attempt SCDs only if patientwilling to tolerate. CODE STATUS: Full code. Charges/Coding Visit Charges Inpatient E&M: 43794 Subs Hosp L2 09/04/24 1104 Cosigner Signature (if applicable): CC: ~ Signed [facility]07-13-2025 History and physical note Author Tania Randle [facility] Note Date/Time September 03, 2024 2:17 pm [facility] Medical Records Department [address] [place] [address] H&P Exam - Hospitalist 09/03/24 1349 MR#: [id number] Acct: [id number] Name: KRISS MICHAEL Rep #:[id number] : 1980 44 From: Tania Randle MD PCP: Dr. Chente Conn MD Status:AD M IN Location: ICU ICU07-1 HPI - General General Date of Admission: 09/03/24 Date of Service: 09/03/24 Chief Complaint: Respite care HPI Narrative The patient is a 44 y/o M w/ PMHx: Chronic anemia, Chronic asthma w/ allergic rhinitis, Chronic Hypoxic and Hypercarbic Respiratory Failure on Chronic Ventilation following w/ Dr. Monsalve, Cerebral Palsy with quadriplegia w/ hx of previous baclofen pump, colostomy, chronic catheter, frequent difficulties with aspiration, G-J tube in place, Seizure disorder, Hx PE eventually transition to Lovenox with associated significant thrombocytopenia following with hematology prior who presents to [facility] ED on 09/03/2024 for planned respite care as his fatherwas hospitalized and his mother necessitates upcoming surgery with per report plan 4 day respite admission. Mother present and notes no acute recent concernsor issues. Patient most recent noted pulmonary visit 04/04/2024. Patient most recent noted ED visit 2024 with a left femur fracture at that time. [facility] Medical History Hypogonadism in male Osteoporosis History of aspiration pneumonia Tachycardia Aspiration pneumonia Anxiety GERD (gastroesophageal reflux disease) Non-smoker On home oxygen therapy Pulmonary embolism Seizures Cerebral palsy Chronic respiratory failure with hypoxia Pseudomonas pneumonia Colostomy prolapse Cerebral palsy Acute dyspnea Anemia in chronic illness Upper GI bleeding (04/2020) Thrombocytopenia Pulmonary embolism on left (06/14/19) Iron deficiency anemia Obesity Tracheostomy in place Debility Chronic respiratory failure Edema Nonrheumatic mitral valve prolapse Redundant colon History of seizure disorder Home Medications ?Medication ?Instructions ?Recorded ?Last Taken ?Type phenobarbital 20 mg/5 mL (4 mg/mL) 60 mg G-tube 0830,2 100 SEIZURES 02/19/17 01/03/24 History oral elixir metoclopramide HCl 5 mg/5 mL oral 10 mg feeding tube 0 830,1600,2100 09/16/18 01/03/24 History solution STOMACH Cough Assist 1 dose .Route .MEDSUPPLY ass ist in 12/25/18 03/23/23 History clearing secretions oxygen concentrator 1 dose .Route .MEDSUPPLY sec ond 12/25/18 Unknown History unit, 4 LPM cont all modalities gabapentin 250 mg/5 mL oral 500 mg G-tube 0000,0600,12 00,1800 09/26/19 01/04/24 History solution SEIZURES albuterol sulfate 2.5 mg/3 mL 2.5 mg inhalation Q4H [place] N Sob &/Or 11/27/20 Unknown History (0.083 %) solution for nebulization Wheezing doxazosin 2 mg tablet 2 mg PO 0830 BLOOD PRESSURE 11/30/21 01/03/24 History cholecalciferol (vitamin D3) 10 15 mcg feeding tube 08 30 SUPPLEMENT 03/24/22 01/03/24 History mcg/mL (400 unit/mL) oral drops acetaminophen 650 mg/20.3 mL oral 650 mg feeding tube 10/24/22 01/04/24 History suspension 0000,0600,1200,1800 PRN PAIN aluminum-mag hydroxide-simethicone 5 ml PO 0000,0600,1 200,1800 PRN 10/24/22 Unknown History 200 mg-200 mg-20 mg/5 mL oral susp ANTACID baclofen 20 mg tablet 20 mg feeding tube Q6H MUSCL E 12/10/22 01/04/24 History SPASMS ondansetron 4 mg disintegrating 4 mg PO Q8H PRN NAUSEA /VOMITING 12/13/22 Unknown Rx tablet #30 tabs esomeprazole magnesium 40 mg 40 mg G-tube BID ACID REF LUX 03/23/23 01/03/24 History granules delayed release for susp (Nexium Packet) ipratropium 0.5 mg-albuterol 3 mg 3 ml inhalation Q4H PRN SOB &/OR 03/23/23 Unknown History (2.5 mg base)/3 mL nebulization WHEEZING soln cetirizine 1 mg/mL oral solution 10 mg (10 mL) feeding tube 1600 09/30/23 01/03/24 Rx ALLERGIES #480 mL montelukast 4 mg oral granules in 4 mg PO DAILY ASTHMA #90 ea 09/30/23 01/03/24 Rx packet (Singulair) lorazepam 2 mg/mL oral concentrate 2 mg feeding tube D AILY PRN 01/04/24 01/03/24 History (Lorazepam Intensol) agitation food supplemt, lactose-reduced 1,000 ml PO QDAY Unknown History 0.04 gram-1.05 kcal/mL oral liquid (Ensure Original) guaifenesin 200 mg/5 mL oral liquid 2 mg feeding tube 0830 04/04/24 Unknown History COUGH/CONGESTION plecanatide 3 mg tablet 3 mg G-tube 0830 BOWELS #90 tabs 04/05/24 Unknown Rx testosterone (AndroGel) 1 pump topical QDAY #75 gram s 07/24/24 Unknown Rx Allergy/AdvReac Type Severity Reaction Status Date / Time chlorhexidine Allergy Rash Verified 06/15/24 13:51 cisapride monohydrate (From Allergy Rash Verified 06/15/24 13:51 Propulsid) house dust Allergy NEEDS Verified 06/15/24 13:51 FOLLOW-UP metronidazole (From Flagyl) Allergy Rash Verified 06/15/24 13:51 codeine AdvReac hallucinati Verified 06/15/24 13:51 ons morphine AdvReac Hallucinati Verified 06/15/24 13:51 ons Family History Mother Hepatitis C Hypertension HIV disease CVA (cerebral vascular accident) Liver disease Father H/O heart artery stent CAD (coronary artery disease) Atrial fibrillation Hypertension Esophageal cancer Grandmother Asthma Diverticulitis Diabetes Myocardial infarction Heart disease Surgical History History of eye surgery Heel cord lengthening History of soft tissue release History of open reduction and internal fixation (ORIF) procedure History of gastrostomy tube placement Status post insertion of intrathecal baclofen pump History of colostomy Colostomy in place Social History household members: family housing: house current occupational status: disabled Smoking Status: Never smoker alcohol intake: never substance use type: does not use caffeine: No ROS Review of Systems ROS Unobtainable: due to mental status Physical Exam Narrative Physical Examination: General: awake, alert, nonverbal, seated upright in his chair, no acute distress, calm. Skin: normal color, turgor, no icterus, cyanosis except occasional staged abrasion to the extremity. HEENT: AT/NC, EOMI, PERRLA, moderately dry MM with protruding tongue, difficult to discern carotid bruit and JVD given very thickened neck, trach in place. Lungs: Diminished breath sounds, > bases, no obvious distress, no evidence of any distress, tracheostomy in place, no rales, ronchi or wheezing. Heart: Mildly tachycardic with regular rhythm; no gallop, rub audible. Abdomen: soft, obese, no obvious TTP, chronically distended similar to prior baseline, ostomy in place, normal BS, no appreciated HSM. Extremities: no cyanosis, chronic BL upper extremity and BL LE chronic stable edema nonpitting, quadriplegic status. Neurological: Patient awake, alert, nonverbal, unable to answer any orientation questions, severe MRDD with cerebral palsy with quadriplegia, calm, cognitive function baseline intact, pupils equally reactive to light and accommodation, cranial nerves difficult to assess given MRDD quadriplegic status, strength severely globally decreased. Psychiatric: affect appears calm, nonverbal, no acute evidence of depressive or anxiety but does have underlying history. Assessment & Plan Assessment/Plan (1) Respite care available: PLAN: Plan The patient is a 44 y/o M w/ PMHx: Chronic anemia, Chronic asthma w/ allergic rhinitis, Chronic Hypoxic and Hypercarbic Respiratory Failure on Chronic Ventilation following w/ Dr. Monsalve, Cerebral Palsy with quadriplegia w/ hx of previous baclofen pump, colostomy, chronic catheter, frequent difficulties with aspiration, G-J tube in place, Seizure disorder, Hx PE eventually transition to Lovenox with associated significant thrombocytopenia following with hematology prior who presents to [facility] ED on 09/03/2024 for planned respite care as his fatherwas hospitalized and his mother necessitates upcoming surgery with per report plan 4 day respite admission. #1. Respite care admission with underlying significant spastic quadriplegia with cerebral palsy with chronic hypoxic and hypercarbic respiratory failure with tracheostomy, ventilator dependent with chronic dysphagia status post PEG tube placement: Will admit to the ICU as an MS status for more aggressive care given complicated history, will continue routine ostomy care, barrier cream as needed, maintain on aspiration precautions, continue home tube feed per home regimen, continue aggressive pulmonary toileting regimen in addition to pulmonary recommended Mucinex, Singulair, Zyrtec as well as DuoNeb therapies with attempt maintain oxygen saturation 93% or higher, will continue patient home baclofen as well as Ativan as needed regimen in addition to metoclopramide with his tube feeds, continue home vent settings, continue chronic Augustin. #2. Chronic normocytic anemia with history of previous GI bleeds: Most recent hemoglobin noted 08/22/2024 with hemoglobin 10.1, MCV 85.3, baseline hemoglobin 9- 10, stable, will obtain upon admission and defer further labs unless necessary. Will maintain on PPI. #3. Seizure disorder: Will continue patient phenobarbital and gabapentin regimen. #4. History of VTE: Patient with previous history of DVT, PE however had significant issues with thrombocytopenia eventually transition to Lovenox and completed therapy, will maintain on SCDs given respect care admission. If any concerns arise certainly may transition to chemoprophylaxis. #5. Chronic asthma with allergic rhinitis: Will continue oxygen supplementationfor chronic regimen as noted above, will maintain on home inhaler regimen with as needed breakthrough albuterol if necessary, will continue patient's montelukast, cetirizine home regimen. #6. GERD: Will maintain on patient PPI. #7. Hypotestosteronism, hypogonadism: Will continue patient home testosterone topical application. #8. DVT prophylaxis: Given this is respite care will defer prophylaxis and attempt SCDs only if patient willing to tolerate. #9. CODE STATUS: Full code. Charges/Coding Visit Charges Inpatient E&M: 73050 Init Hosp L2 09/03/24 1417 <Electronically signed by Tania Randle MD> Cosigner Signature (if applicable): CC: Dr. Tania Randle MD; Dr. Chente Conn MD~ Signed [facility] Work Phone: 1(892) 107-251307-13-2025 Evaluation note* Diagnosis Onset Date Resolution Status Admit Date Respite care available resolved Ju ly 2024 1:28pm [facility] Work Phone: 1(820) 511-947607-13-2025 History and physical note [facility] Medical Records Department [address] [place] [address] H&P Exam - Hospitalist 09/03/24 1349 MR#: [id number] Acct: [id number] Name: KRISS MICHAEL Rep #:[id number] : 1980 44 From: Tania Randle MD PCP: Dr. Chente Conn MD Status:AD M IN Location: ICU ICU07-1 HPI - General General Date of Admission: 09/03/24 Date of Service: 09/03/24 Chief Complaint: Respite care HPI Narrative The patient is a 44 y/o M w/ PMHx: Chronic anemia, Chronic asthma w/ allergic rhinitis, Chronic Hypoxic and Hypercarbic Respiratory Failure on Chronic Ventilation following w/ Dr. Monsalve, Cerebral Palsy with quadriplegia w/ hx of previous baclofen pump, colostomy, chronic catheter, frequent difficulties with aspiration, G-J tube in place, Seizure disorder, Hx PE eventually transition to Lovenox with associated significant thrombocytopenia following with hematology prior who presents to [facility] ED on 09/03/2024 for planned respite care as his fatherwas hospitalized and his mother necessitates upcoming surgery with per report plan 4 day respite admission. Mother present and notes no acute recent co ncernsor issues. Patient most recent noted pulmonary visit 04/04/2024. Patient most recent noted ED visit 2024 with a left femur fracture at that time. [facility] Medical History Hypogonadism in male Osteoporosis History of aspiration pneumonia Tachycardia Aspiration pneumonia Anxiety GERD (gastroesophageal reflux disease) Non-smoker On home oxygen therapy Pulmonary embolism Seizures Cerebral palsy Chronic respiratory failure with hypoxia Pseudomonas pneumonia Colostomy prolapse Cerebral palsy Acute dyspnea Anemia in chronic illness Upper GI bleeding (04/2020) Thrombocytopenia Pulmonary embolism on left (06/14/19) Iron deficiency anemia Obesity Tracheostomy in place Debility Chronic respiratory failure Edema Nonrheumatic mitral valve prolapse Redundant colon History of seizure disorder Home Medications ?Medication ?Instructions ?Recorded ?Last Taken ?Type phenobarbital 20 mg/5 mL (4 mg/mL) 60 mg G-tube 0830,2 100 SEIZURES 02/19/17 01/03/24 History oral elixir metoclopramide HCl 5 mg/5 mL oral 10 mg feeding tube 0 830,1600,2100 09/16/18 01/03/24 History solution STOMACH Cough Assist 1 dose .Route .MEDSUPPLY ass ist in 12/25/18 03/23/23 History clearing secretions oxygen concentrator 1 dose .Route .MEDSUPPLY sec ond 12/25/18 Unknown History unit, 4 LPM cont all modalities gabapentin 250 mg/5 mL oral 500 mg G-tube 0000,0600,12 00,1800 09/26/19 01/04/24 History solution SEIZURES albuterol sulfate 2.5 mg/3 mL 2.5 mg inhalation Q4H [place] N Sob &/Or 11/27/20 Unknown History (0.083 %) solution for nebulization Wheezing doxazosin 2 mg tablet 2 mg PO 0830 BLOOD PRESSURE 11/30/21 01/03/24 History cholecalciferol (vitamin D3) 10 15 mcg feeding tube 08 30 SUPPLEMENT 03/24/22 01/03/24 History mcg/mL (400 unit/mL) oral drops acetaminophen 650 mg/20.3 mL oral 650 mg feeding tube 10/24/22 01/04/24 History suspension 0000,0600,1200,1800 PRN PAIN aluminum-mag hydroxide-simethicone 5 ml PO 0000,0600,1 200,1800 PRN 10/24/22 Unknown History 200 mg-200 mg-20 mg/5 mL oral susp ANTACID baclofen 20 mg tablet 20 mg feeding tube Q6H MUSCL E 12/10/22 01/04/24 History SPASMS ondansetron 4 mg disintegrating 4 mg PO Q8H PRN NAUSEA /VOMITING 12/13/22 Unknown Rx tablet #30 tabs esomeprazole magnesium 40 mg 40 mg G-tube BID ACID REF LUX 03/23/23 01/03/24 History granules delayed release for susp (Nexium Packet) ipratropium 0.5 mg-albuterol 3 mg 3 ml inhalation Q4H PRN SOB &/OR 03/23/23 Unknown History (2.5 mg base)/3 mL nebulization WHEEZING soln cetirizine 1 mg/mL oral solution 10 mg (10 mL) feeding tube 1600 09/30/23 01/03/24 Rx ALLERGIES #480 mL montelukast 4 mg oral granules in 4 mg PO DAILY ASTHMA #90 ea 09/30/23 01/03/24 Rx packet (Singulair) lorazepam 2 mg/mL oral concentrate 2 mg feeding tube D AILY PRN 01/04/24 01/03/24 History (Lorazepam Intensol) agitation food supplemt, lactose-reduced 1,000 ml PO QDAY Unknown History 0.04 gram-1.05 kcal/mL oral liquid (Ensure Original) guaifenesin 200 mg/5 mL oral liquid 2 mg feeding tube 0830 04/04/24 Unknown History COUGH/CONGESTION plecanatide 3 mg tablet 3 mg G-tube 0830 BOWELS #90 tabs 04/05/24 Unknown Rx testosterone (AndroGel) 1 pump topical QDAY #75 gram s 07/24/24 Unknown Rx Allergy/AdvReac Type Severity Reaction Status Date / Time chlorhexidine Allergy Rash Verified 06/15/24 13:51 cisapride monohydrate (From Allergy Rash Verified 06/15/24 13:51 Propulsid) house dust Allergy NEEDS Verified 06/15/24 13:51 FOLLOW-UP metronidazole (From Flagyl) Allergy Rash Verified 06/15/24 13:51 codeine AdvReac hallucinati Verified 06/15/24 13:51 ons morphine AdvReac Hallucinati Verified 06/15/24 13:51 ons Family History Mother Hepatitis C Hypertension HIV disease CVA (cerebral vascular accident) Liver disease Father H/O heart artery stent CAD (coronary artery disease) Atrial fibrillation Hypertension Esophageal cancer Grandmother Asthma Diverticulitis Diabetes Myocardial infarction Heart disease Surgical History History of eye surgery Heel cord lengthening History of soft tissue release History of open reduction and internal fixation (ORIF) procedure History of gastrostomy tube placement Status post insertion of intrathecal baclofen pump History of colostomy Colostomy in place Social History household members: family housing: house current occupational status: disabled Smoking Status: Never smoker alcohol intake: never substance use type: does not use caffeine: No ROS Review of Systems ROS Unobtainable: due to mental status Physical Exam Narrative Physical Examination: General: awake, alert, nonverbal, seated upright in his chair, no acute distress, calm. Skin: normal color, turgor, no icterus, cyanosis except occasional staged abrasion to the extremity. HEENT: AT/NC, EOMI, PERRLA, moderately dry MM with protruding tongue, difficult to discern carotid bruit and JVD given very thickened neck, trach in place. Lungs: Diminished breath sounds, > bases, no obvious distress, no evidence of any distress, tracheostomy in place, no rales, ronchi or wheezing. Heart: Mildly tachycardic with regular rhythm; no gallop, rub audible. Abdomen: soft, obese, no obvious TTP, chronically distended similar to prior baseline, ostomy in place, normal BS, no appreciated HSM. Extremities: no cyanosis, chronic BL upper extremity and BL LE chronic stable edema nonpitting, quadriplegic status. Neurological: Patient awake, alert, nonverbal, unable to answer any orientation questions, severe MRDD with cerebral palsy with quadriplegia, calm, cognitive function baseline intact, pupils equally reactive to light and accommodation, cranial nerves difficult to assess given MRDD quadriplegic status, strength severely globally decreased. Psychiatric: affect appears calm, nonverbal, no acute evidence of depressive or anxiety but does have underlying history. Assessment & Plan Assessment/Plan (1) Respite care available: PLAN: Plan The patient is a 44 y/o M w/ PMHx: Chronic anemia, Chronic asthma w/ allergic rhinitis, Chronic Hypoxic and Hypercarbic Respiratory Failure on Chronic Ventilation following w/ Dr. Monsalve, Cerebral Palsy with quadriplegia w/ hx of previous baclofen pump, colostomy, chronic catheter, frequent difficulties with aspiration, G-J tube in place, Seizure disorder, Hx PE eventually transition to Lovenox with associated significant thrombocytopenia following with hematology prior who presents to [facility] ED on 09/03/2024 for planned respite care as his fatherwas hospitalized and his mother necessitates upcoming surgery with per report plan 4 day respite admission. #1. Respite care admission with underlying significant spastic quadriplegia with cerebral palsy with chronic hypoxic and hypercarbic respiratory failure with tracheostomy, ventilator dependent with chronic dysphagia status post PEG tube placement: Will admit to the ICU as an MS status for more aggressive care given complicated history, will continue routine ostomy care, barrier cream as needed, maintain on aspiration precautions, continue home tube feed per home regimen, continue aggressive pulmonary toileting regimen in addition to pulmonary recommended Mucinex, Singulair, Zyrtec as well as DuoNeb therapies with attempt maintain oxygen saturation 93% or higher, will continue patient home baclofen as well as Ativan as needed regimen in addition to metoclopramide with his tube feeds, continue home vent settings, continue chronic Augustin. #2. Chronic normocytic anemia with history of previous GI bleeds: Most recent hemoglobin noted 08/22/2024 with hemoglobin 10.1, MCV 85.3, baseline hemoglobin 9- 10, stable, will obtain upon admission and defer further labs unless necessary. Will maintain on PPI. #3. Seizure disorder: Will continue patient phenobarbital and gabapentin regimen. #4. History of VTE: Patient with previous history of DVT, PE however had significant issues with thrombocytopenia eventually transition to Lovenox and completed therapy, will maintain on SCDs given respect care admission. If any concerns arise certainly may transition to chemoprophylaxis. #5. Chronic asthma with allergic rhinitis: Will continue oxygen supplementationfor chronic regimen as noted above, will maintain on home inhaler regimen with as needed breakthrough albuterol if necessary, will continue patient's montelukast, cetirizine home regimen. #6. GERD: Will maintain on patient PPI. #7. Hypotestosteronism, hypogonadism: Will continue patient home testosterone topical application. #8. DVT prophylaxis: Given this is respite care will defer prophylaxis and attempt SCDs only if patient willing to tolerate. #9. CODE STATUS: Full code. Charges/Coding Visit Charges Inpatient E&M: 77557 Init Hosp L2 09/03/24 1417 Cosigner Signature (if applicable): CC: Dr. Tania Randle MD; Dr. Chente Conn MD~ Signed [facility]06-05-2025 Radiology Diagnostic study note [facility] Imaging Services [address] [place] [address] Knee 1 or 2 Views MR#: [id number] Acct: [id number] Name: KRISS MICHAEL Rep #: [id number] : 1980 M 44 From: Manuel Bernabe MD PCP: Dr. Chente Conn MD Status: RE G CLI Study:Knee 1 or 2 Views Date of Exam: Exam# [id number] Ordering Dr: Gabrielle Quinones MD PROCEDURE: KNEE [...] effusion can not be evaluated. There are nosoft tissue abnormalities. RAD/Knee 1 or 2 Views IMPRESSION: No fractures are evident. The knee is difficult to evaluate due to the nonstandard projections. Reading Location: [facility] CC: Dr. Chente Conn MD; Dr. Roddy Quinones MD ~ Skin Therapist: Signed [facility] Work Phone: 1(249) 988-569704-24-2025 Evaluation note* Diagnosis Onset Date Resolution Status Admit Date Osteoporosis chronic June 15, 2024 1:47pm [facility] Work Phone: 1(285) 841-812804-24-2025 Evaluation note* Diagnosis Onset Date Resolution Status Admit Date Osteoporosis chronic June 15, 2024 1:47pm Respite care available acute Ju ly 2024 1:28pm [facility] Work Phone: 1(657) 456-245504-24-2025 Evaluation note* Diagnosis Onset Date Resolution Status Admit Date Osteoporosis chronic June 15, 2024 1:47pm Respite care available resolved Ju ly 2024 1:28pm [facility] Work Phone: [phone] Evaluation note* Diagnosis Onset Date Resolution Status Admit Date Chronic respiratory failure chronic April 04, 2024 1:01pm [facility] Work Phone: [phone] Evaluation note* Diagnosis Onset Date Resolution Status Admit Date Chronic respiratory failure chronic April 04, 2024 1:01pm Osteoporosis chronic June 15, 2024 1:47pm [facility] Work Phone: [phone] Discharge summary Author Anthony Russell [facility] April 13, 2023 4:08pm Note Date/Time April 13, 2023 12:41pm [facility] Medical Records Department [address] [place] [address] Emergency Department Summary 04/13/23 MR#: [id number] Acct: [id number] Name: KRISS MICHAEL Rep #:[id number] : 1980 43 From: Anthony Russell MD [...] Prior similar symptoms: Yes Recent Illness/Hospitalization: Yes [facility] Medical History Acute dyspnea Anemia in [...] 44.2 L Lymph % (Auto) 43.5 H Placer % (Auto) 7.8 Eos % (Auto) 3.7 [...] problems, contact your Primary Care Provider. Call [facility] ([phone]) or report to the closest Emergency Room. Call 911 if necessary. 04/13/23 7591 <Electronically signed by Anthony Russell MD> Cosigner Signature (if applicable): CC: Dr. Chente Conn MD ~ Signed [facility] Work Phone: 1([phone]) 222-528502-01-2024 Discharge summary Author Camacho [facility] March 25, 2023 10:43am Note Date/Time March 25, 2023 1 0:40am [facility] Medical Records Department [address] [place] [address] Instructions for Home/Discharge Instructions 03/25/23 1035 MR#: [id number] Acct: [id number] Name: KRISS MICHAEL Rep #:[id number] : 1980 43 From: Camacho Gonzalez DO [...] Gris Hewitt; Patrice Langley; Goran Rose; Luis oMhr; Vito Bright; Luther Huggins; Lucia Dillard Instructions [...] MD; Dr. Cari Cavazos MD ~ Signed [facility] Work Phone: 1([phone]) 676-815502-01-2024 Progress note Author Jacek Monsalve [facility] March 25, 2023 9:12am Note Date/Time March 25, 2023 7 :06am [facility] Medical Records Department [address] [place] [address] Progress Note - House Visitor 03/25/23 0704 MR#: [id number] Acct: [id number] Name: KRISS MICHAEL Rep #:[id number] : 1980 43 From: Jacek Monsalve MD [...] neurologic status Charges/Coding Visit Charges Inpatient E&M: 08469 Subs Hosp L2 03/25/23 0912 <Electronically signed by Jacek Monsalve MD> Cosigner Signature (if applicable): CC: ~ Signed [facility] Work Phone: 1([phone]) 619-540201-31-2024 Progress note Author Camacho Gonzalez [facility] March 24, 2023 6:18pm Note Date/Time March 24, 2023 6 :15pm [facility] Medical Records Department [address] [place] [address] Progress Note - Hospitalist 03/24/23 180 MR#: [id number] Acct: [id number] Name: ROJELIOJenniferSHABBIRKRYSTAL Dangelo Rep #:[id number] : 1980 43 From: Camacho Gonzalez DO [...] L 12 110/73 99 Nasal Cannula 4 01/31/24 17:38 03/24/23 17:42 03/24/23 17:38 03/24/23 17:42 [...] % (Auto) 62.2, Lymph % (Auto) 25.6, Placer % (Auto) 8.9, Eos % (Auto) 2.9, [...] 0.30, AST 14 L, ALT 25, Alkaline Qravyxdrylo702 H, Total Protein 7.5, Albumin 3.1 L, [...] 35 minutes Charges/Coding Visit Charges Inpatient E&M: 43468 Subs Hosp L2 03/24/232 <Electronically signed by Camacho Gonzalez DO> Cosigner Signature (if applicable): CC: ~ Signed [facility] Work Phone: 1(133) 365-556301-31-2024 Consult note Author Jacek Monsalve [facility] March 24, 2023 2:48pm Note Date/Time March 24, 2023 8 :48am [facility] Medical Records Department [address] [place] [address] Consultation - House Visitor 03/24/23 0806 MR#: [id number] Acct: [id number] Name: KRISS MICHAEL Rep #:[id number] : 1980 43 From: Jacek Monsalve MD [...] from the outpatient office, who presents to [facility] on 03/23/2023 secondary to recurrent episodes [...] and actively tracking people around the room. [facility] Medical History Acute dyspnea Anemia in [...] (Auto) 70.6 H, Lymph % (Auto) 21.7, Placer % (Auto) 5.1, Eos % (Auto) 2.0, [...] % (Auto) 62.2, Lymph % (Auto) 25.6, Placer % (Auto) 8.9, Eos % (Auto) 2.9, [...] 0.30, AST 14 L, ALT 25, Alkaline Wotpulkjrki975 H, Total Protein 7.5, Albumin 3.1 L, Globulin 4.4 H, Albumin/Globulin Ratio 0.7 L Micro: Microbiology 03/23/23 12:55 Mucosa - Nose Respiratory Panel (PCR) - Final Imaging Radiology Impression Chest X-Ray 03/23/23 13:22 IMPRESSION: Limited inspiratory effort due to patient''s condition. There has been essentially no change prior study. Electronically Signed: Matti Greer MD at 13:40 EST , Charges/Coding Visit Charges Inpatient E&M: 86843 Init Hosp L2 03/24/23 1448 <Electronically signed [...] Huggins MD; Dr. Cari Cavazos MD~ Signed [facility] Work Phone: 1([phone]) 443-558301-30-2024 Discharge summary Author Siddharth De La Rosa [facility] March 23, 2023 5:09pm Note Date/Time March 23, 2023 1 2:22pm [facility] Medical Records Department [address] [place] [address] Emergency Department Summary 03/23/23 MR#: [id number] Acct: [id number] Name: KRISS MICHAEL Rep #:[id number] : 1980 43 From: Siddharth De La [...] has not been around any sick persons. [facility] <Dominic Méndez NP-C - Last Filed: 03/23/23 16:27> [facility] Medical History Acute dyspnea Anemia in [...] Oxygen Delivery Method Mechanical Ventilator Mechanical Ventilator MDM <REYNA Scott - Last Filed: 03/23/23 16:27> [facility] Lab Data Labs: Laboratory Results - last 24 hr 03/23/23 03/23/23 12:35 13:23 WBC 13.0 H RBC 5.07 Hgb 13.1 Hct 42.2 MCV 83.2 MCH 25.8 L MCHC 31.0 L RDW Std Deviation 45.1 H RDW Coeff of Emilee 14.8 H Plt Count 229 MPV 10.1 Immature Gran % (Auto) 0.400 Neut % (Auto) 70.6 H Lymph % (Auto) 21.7 Placer % (Auto) 5.1 Eos % (Auto) 2.0 [...] Rosa MD - Last Filed: 03/23/23 17:09> [facility] Lab Data Labs: Laboratory Results - last 24 hr 03/23/23 03/23/23 12:35 13:23 WBC 13.0 H RBC 5.07 Hgb 13.1 Hct 42.2 MCV 83.2 MCH 25.8 L MCHC 31.0 L RDW Std Deviation 45.1 H RDW Coeff of Emilee 14.8 H Plt Count 229 MPV 10.1 Immature Gran % (Auto) 0.400 Neut % (Auto) 70.6 H Lymph % (Auto) 21.7 Placer % (Auto) 5.1 Eos % (Auto) 2.0 [...] min), Including time spent:, Discussing w/Patient &/or Family/Recreational Director, Discussing w/Consultants, Arranging Admission or Transfer and Performing Direct Patient Care at Bedside Discharge Plan Dx/Rx/DC Orders Clinical Impression: Acute hypoxemic respiratory failure, Aspiration pneumonia, Cerebral palsy, Acidosis, lactic Disposition Disposition: Acute Care [facility] Discharge Date/Time: 03/23/23 16:46 What to do if you have Problems For any increased pain, shortness of breath, bleeding, nausea or vomiting, chest pain, or any unexpected problems, contact your Primary Care Provider. Call [facility] ([phone]) or report to the closest Emergency Room. Call 911 if necessary. 03/23/23 1709 <Electronically signed by Siddharth De La Rosa MD> Cosigner Signature (if applicable): 03/23/23 1627 <Electronically signed by Dominic Méndez MAC DEVELOPER-C> CC: Dr. Chente Conn MD ~ Signed [facility] Work Phone: 1(278) 235-931501-30-2024 History and physical note Author Lucia Dillard [facility] March 23, 2023 4:44pm Note Date/Time March 23, 2023 4 :37pm [facility] Medical Records Department [address] [place] [address] H&P Exam - Hospitalist 03/23/23 1633 MR#: [id number] Acct: [id number] Name: KRISS MICHAEL Rep #:[id number] : 1980 43 From: Lucia Dillard MD [...] seizure disorder, and GERD who presented to [facility] 03/23/2023 due to concern for aspiration [...] is presently not in any acute distress. [facility] Medical History Acute dyspnea Anemia in [...] (Auto) 70.6 H, Lymph % (Auto) 21.7, Placer % (Auto) 5.1, Eos % (Auto) 2.0, [...] documentation, 56Minutes Charges/Coding Visit Charges Inpatient E&M: 13381 Init Hosp L2 03/23/23 1644 <Electronically signed by Lucia Dillard MD> Cosigner Signature (if applicable): CC: Dr. Chetne Conn MD; Dr. Lucia Dillard MD~ Signed [facility] Work Phone: 1(204) 310-178311-25-2023 Discharge summary Author Dalton Lester [facility] January 16, 2023 10:58pm Note Date/Time January 16, 2023 7:42pm [facility] Medical Records Department [address] [place] [address] Emergency Department Summary 01/16/23 MR#: [id number] Acct: [id number] Name: KRISS MICHAEL Rep #:[id number] : 1980 42 From: Amena OAKES PCP: [...] surgeon did not want to operate again. [facility] <CHAMP Merlos - Last Filed: 01/16/23 20:59> [facility] Medical History (Updated 01/16/23 @ 20:59 [...] <CHAMP Merlos - Last Filed: 01/16/23 20:59> MDM MDM Narrative Medical decision making narrative: [...] 75.2 H Lymph % (Auto) 16.8 L Placer % (Auto) 6.5 Eos % (Auto) 1.1 [...] Clarity Clear Urine pH 6.0 Ur Specific Gage 1.025 Urine Protein 30 H Urine Glucose [...] workup. This patient was seen with a PA/MAC DEVELOPER Individually assessed they patient including history and physical. I have reviewed everything on the chart that is availableand agree with the documentation provided by the PA/MAC DEVELOPER including discussion about the assessment, treatment plan, [...] 75.2 H Lymph % (Auto) 16.8 L Placer % (Auto) 6.5 Eos % (Auto) 1.1 [...] Clarity Clear Urine pH 6.0 Ur Specific Gage 1.025 Urine Protein 30 H Urine Glucose [...] Signed: Petros Myers MD at 21:57 EST Reading Location ID and State: [address] [place] [address] Tel , Service support , Discharge Plan Triage Chief Complaint: Nausea/Vomiting [...] problems, contact your Primary Care Provider. Call [facility] ([phone]) or report to the closest Emergency Room. Call 911 if necessary. 01/16/232058 <Electronically signed by Amena OAKES> Cosigner Signature (if applicable): 01/16/232257 <Electronically signed by Dalton Lester DO> CC: Dr. Chente Conn MD ~ Signed [facility] Work Phone: 1([phone]) 885-832110-22-2023 Discharge summary Author Donte [facility] December 13, 2022 6:10pm Note Date/Time December 13, 2022 1 2:47pm [facility] Medical Records Department [address] [place] [address] Discharge Summary 12/13/22 1247 MR#: [id number] Acct: [id number] Name: KRISS MICHAEL Rep #:[id number] : 1980 42 From: Donte adam DO PCP: Dr. Chente Conn MD Status:AD IN [facility] Prov[facility] Date of Admission: 12/10/22 Date [...] history of seizure disorder who presented to [facility] ED on 12/10/2022 with several episodes [...] Chente Conn Discharge Orders/Prescriptions Prescriptions: New sucralfate [Carafate] 100 [...] Self Care Charges/Coding Visit Charges Inpatient E&M: 99513 Disch Hosp >30min 12/13/22 181 <Electronically signed by Donte Abebe DO> Cosigner Signature (if applicable): CC: Dr. Donte Abebe DO; Dr. Chente Conn MD~ Signed [facility] Work Phone: 1(521) 488-276110-22-2023 Discharge summary Author Donte Abebe [facility] December 13, 2022 12:47pm Note Date/Time December 13, 2022 1 2:43pm [facility] Medical Records Department [address] [place] [address] Instructions for Home/Discharge Instructions 12/13/22 1242 MR#: [id number] Acct: [id number] Name: KRISS MICHAEL Rep #:[id number] : 1980 42 From: Donte adam DO [...] CC: Dr. Chente Conn MD ~ Signed [facility] Work Phone: 1(842) 559-827610-22-2023 Progress note Author Stefan Gregory [facility] December 13, 2022 11:49am Note Date/Time December 13, 2022 1 1:48am [facility] Medical Records Department [address] [place] [address] Progress Note - GI 12/13/22 1147 MR#: [id number] Acct: [id number] Name: KRISS MICHAEL Rep #:[id number] : 1980 42 From: Stefan Gregory DO PCP: Dr. Chente Conn MD Status:AD M IN Location: [place] [address] Subjective Subjective No issues with his tube [...] current management. Charges/Coding Visit Charges Inpatient E&M: 30956 Subs Hosp L3 12/13/22 1149 <Electronically signed by Stefan Gregory DO> Cosigner Signature (if applicable): CC: ~ Signed [facility] Work Phone: 1(707) 152-275410-21-2023 Progress note Author Stefan Gregory [facility] December 12, 2022 5:05pm Note Date/Time December 12, 2022 5 :02pm [facility] Medical Records Department [address] [place] [address] Progress Note - GI 12/12/22 170 MR#: [id number] Acct: [id number] Name: KRISS MICHAEL Rep #:[id number] : 1980 42 From: Stefan Gregory DO PCP: Dr. Chente Conn MD Status:AD M IN Location: [place] [address]- Subjective Subjective Patient underwent an upper endoscopy [...] 12/12/22 15:21 12/12/22 15:21 12/12/22 15:21 12/12/22 11:15 FiO2 30 12/12/22 14:00 Oxygen Flow [...] seems stable. Charges/Coding Visit Charges Inpatient E&M: 33025 Subs Hosp L3 12/12/22 1705 <Electronically signed by Stefan Friend DO> Cosigner Signature (if applicable): CC: ~ Signed [facility] Work Phone: 1(587) 954-634110-21-2023 Progress note Author Donte Abebe [facility] December 12, 2022 2:28pm Note Date/Time December 12, 2022 2 :27pm [facility] Medical Records Department [address] [place] [address] Progress Note - Hospitalist 12/12/22 1423 MR#: [id number] Acct: [id number] Name: MARYGERSON CUMMINGSPARESH Dangelo Rep #:[id number] : 1980 42 From: Donte adam DO PCP: Dr. Chente Conn MD Status:AD M IN Location: [place] [address] Reason for Visit Reason for Visit: Diagnoses [...] history of seizure disorder who presented to [facility] ED on 12/10/2022 with several episodes [...] 35 minutes. Charges/Coding Visit Charges Inpatient E&M: 77033 Subs Hosp L2 12/12/22 1428 <Electronically signed by Donte Abebe DO> Cosigner Signature (if applicable): CC: ~ Signed [facility] Work Phone: 1(147) 315-844310-20-2023 Progress note Author Donte [facility] December 11, 2022 5:31pm Note Date/Time December 11, 2022 5 :31pm [facility] Medical Records Department [address] [facility] [place] [address] Progress Note - Hospitalist 12/11/22 1723 MR#: [id number] Acct: [id number] Name: KRISS MICHAEL Rep #:[id number] : 1980 42 From: Donte adam DO PCP: Dr. Chente Conn MD Status:AD M IN Location: [place] [address] Reason for Visit Reason for Visit: Diagnoses [...] history of seizure disorder who presented to [facility] ED on 12/10/2022 with several episodes [...] 35 minutes. Charges/Coding Visit Charges Inpatient E&M: 56827 Subs Hosp L2 12/11/22 1731 <Electronically signed by Donte Abebe DO> Cosigner Signature (if applicable): CC: ~ Signed [facility] Work Phone: 1(728) 627-547010-20-2023 Procedure [facility] 12-11-2022 Procedure [facility]10-19-2023 History and physical note Author Donte [facility] December 10, 2022 5:27pm Note Date/Time December 10, 2022 1 2:21pm [facility] Medical Records Department [address] [place] [address] H&P Exam - Hospitalist 12/10/22 1217 MR#: [id number] Acct: [id number] Name: KRISS MICHAEL Rep #:[id number] : 1980 42 From: Donte adam DO PCP: Dr. Chente Conn MD Status:AD M IN Location: [place] [address] HPI - General General Date of Admission: 12/10/22 HPI Narrative KRISS MCIHAEL, is a 42 M who presents [facility] Medical History (Updated 12/10/22 @ 15:05 [...] (Auto) 72.2 H, Lymph % (Auto) 19.2, Placer % (Auto) 5.9, Eos % (Auto) 2.1, [...] Signed: Edis Dhaliwal MD at 11:47 EDT Reading Location ID and State: [address] [place] [address] Tel , Service support , Chest X-Ray 12/10/22 11:22 IMPRESSION: No [...] history of seizure disorder who presented to [facility] ED on 12/10/2022 with several episodes [...] 55 minutes. Charges/Coding Visit Charges Inpatient E&M: 71118 Init Hosp L2 12/10/22 1727 <Electronically signed by Donte Abebe DO> Cosigner Signature (if applicable): CC: Dr. Donte Abebe DO; Dr. Chente Conn MD~ Signed [facility] Work Phone: 1(306) 936-952310-19-2023 Discharge summary Author Miky Le [facility] December 10, 2022 4:28pm Note Date/Time December 10, 2022 1 0:15am [facility] Medical Records Department [address] [place] [address] Emergency Department Summary 12/10/22 MR#: [id number] Acct: [id number] Name: KRISS MICHAEL Rep #:[id number] : 1980 42 From: Miky Chiang PCP: Dr. Chente Conn MD Status:AD M IN Location: [place] [address] HPI HPI - GI History of Present [...] the summer with PCP. Specialists are at [facility] with surgery. However mother states has [...] gastroenterology, hospitalist This note was generated with WirelessGate dictation software. It may contain incorrectwords, spelling, [...] (Auto) 72.2 H Lymph % (Auto) 19.2 Placer % (Auto) 5.9 Eos % (Auto) 2.1 [...] palsy, Hematemesis Disposition Disposition: Acute Care Hospital [facility] Discharge Date/Time: 12/10/22 14:37 What to do if you have Problems For any increased pain, shortness of breath, bleeding, nausea or vomiting, chestpain, or any unexpected problems, contact your Primary Care Provider. Call [facility] ([phone]) or report to the closest Emergency Room. Call 911 if necessary. 12/10/22 4088 <Electronically signed by Miky Chiang> Cosigner Signature (if applicable): CC: Dr. Chente Conn MD ~ Signed [facility] Work Phone: 1(388) 100-410509-14-2023 Discharge summary Author Vanessa Roberts [facility] November 05, 2022 11:44am Note Date/Time November 05, 2022 11:38am [facility] Medical Records Department [address] [place] [address] Discharge Summary 11/05/22 1136 MR#: [id number] Acct: [id number] Name: KRISS MICHAEL Rep #:[id number] : 1980 42 From: Vanessa Roberts DO PCP: Dr. Chente Conn MD Status:AD M IN Location: ICU [place] [address] Providers Date of Admission: 10/27/22 Date of [...] father had surgery for esophageal cancer at [facility]. Overall he is remained incredibly stable and [...] Chente Conn Consulting Providers: Camacho Gonzalez; Barry Young; Cindy Alexandre; Michael Posadas Discharge Orders/Prescriptions Prescriptions: Continued albuterol [...] Self Care Charges/Coding Visit Charges Inpatient E&M: 93669 Disch Hosp 11/05/22 1144 <Electronically signed by Vanessa Roberts DO> Cosigner Signature (if applicable): CC: Dr. Chente Conn MD; Dr. Vanessa Roberts DO~ Signed [facility] Work Phone: 1(678) 486-754109-13-2023 Progress note Author Vanessa Roberts [facility] November 04, 2022 2:07pm Note Date/Time November 04, 2022 2:07pm [facility] Medical Records Department [address] [place] [address] Progress Note - Hospitalist 11/04/22 1405 MR#: [id number] Acct: [id number] Name: KRISS MICHAEL Rep #:[id number] : 1980 42 From: Vanessa Roberts DO PCP: Dr. Chente Conn MD Status:AD M IN Location: ICU ICU- Reason for Visit Reason for Visit: Respite [...] home tomorrow. Charges/Coding Visit Charges Inpatient E&M: 11547 Subs Hosp L1 11/04/22 1407 <Electronically signed by Vanessa Roberts DO> Cosigner Signature (if applicable): CC: ~ Signed [facility] Work Phone: 1(648) 196-919109-12-2023 Progress note Author Vanessa Roberts [facility] November 03, 2022 1:40pm Note Date/Time November 03, 2022 1:40pm [facility] Medical Records Department [address] [place] [address] Progress Note - Hospitalist 11/03/22 1338 MR#: [id number] Acct: [id number] Name: KRISS MICHAEL Rep #:[id number] : 1980 42 From: Vanessa Roberts DO [...] from surgery Charges/Coding Visit Charges Inpatient E&M: 09282 Subs Hosp L1 11/03/22 1340 <Electronically signed by Vanessa Roberts DO> Cosigner Signature (if applicable): CC: ~ Signed [facility] Work Phone: 1([phone]) 554-588809-11-2023 Progress note Author Vanessa Roberts [facility] November 02, 2022 5:28pm Note Date/Time November 02, 2022 8:02am [facility] Medical Records Department [address] [place] [address] Progress Note - Hospitalist 11/02/22 0755 MR#: [id number] Acct: [id number] Name: KRISS MICHAEL Rep #:[id number] : 1980 42 From: Vanessa Roberts DO [...] is having surgeryfor esophageal cancer chair at [facility]. Overall he is remained incredibly stable and [...] -Full code Charges/Coding Visit Charges Inpatient E&M: 68404 Subs Hosp L1 11/02/22 1148 <Electronically signed by Vanessa Roberts DO> Cosigner Signature (if applicable): CC: ~ Signed [facility] Work Phone: [phone]) 800-612109-10-2023 Progress note [facility] November 01, 2022 9:04am Note Date/Time November 01, 2022 7:28am [facility] Medical Records Department [address] [place] [address] Progress Note - Hospitalist 11/01/22726 MR#: [id number] Acct: [id number] Name: KRISS MICHAEL Rep #:[id number] : 1980 42 From: Michael Posadas MD [...] documentation, 35Minutes Charges/Coding Visit Charges Inpatient E&M: 82015 Subs Hosp L2 11/01/22 0904 <Electronically signed by Michael Posadas MD> Cosigner Signature (if applicable): CC: ~ Signed [facility] Work Phone: 1(878) 727-328209-09-2023 Progress note Author Michael Mattaana cristina [facility] October 31, 2022 10:50am Note Date/Time October 31, 2022 7:35am [facility] Medical Records Department [address] [place] [address] Progress Note - Hospitalist 10/31/22 0732 MR#: [id number] Acct: [id number] Name: KRISS MICHAEL Rep #:[id number] : 1980 42 From: Michael Posadas MD [...] documentation, 35Minutes Charges/Coding Visit Charges Inpatient E&M: 35433 Subs Hosp L2 10/31/22 1050 <Electronically signed by Michael Posadas MD> Cosigner Signature (if applicable): CC: ~ Signed [facility] Work Phone: 1([phone]) 599-622809-08-2023 Progress note Author Cindy Alexandre [facility] October 30, 2022 10:37am Note Date/Time October 30, 2022 10:37am [facility] Medical Records Department [address] [place] [address] Progress Note 10/30/22 1030 MR#: [id number] Acct: [id number] Name: KRISS MICHAEL Rep #:[id number] : 1980 42 From: Cindy Alexandre MD [...] 10/30/22 23:59 23:59 23:59 Intake Total 1979 / 1979 1221 / 1421 200 / 200 [...] respite care. Charges/Coding Visit Charges Inpatient E&M: 81808 Subs Hosp L2 10/30/22 1037 <Electronically signed by Cindy Alexandre MD> Cindy Alexandre MD Cosigner Signature (if applicable): CC: ~ Signed [facility] Work Phone: [phone]) 111-458309-07-2023 Progress note Author Barry Young [facility] October 29, 2022 8:31am Note Date/Time October 29, 2022 8:31am [facility] Medical Records Department [address] [place] [address] Progress Note - Hospitalist 10/29/22 0828 MR#: [id number] Acct: [id number] Name: KRISS MICHAEL Rep #:[id number] : 1980 42 From: Barry stover MD [...] home instructions Charges/Coding Visit Charges Inpatient E&M: 68192 Subs Hosp L2 10/29/22 0831 <Electronically signed by Barry Young MD> Cosigner Signature (if applicable): CC: ~ Signed [facility] Work Phone: [phone]) 268-279309-06-2023 History and physical note Author Cindy Alexandre [facility] October 28, 2022 7:30pm Note Date/Time October 27, 2022 2:40pm [facility] Medical Records Department [address] [place] [address] [place] [address] History & Physical Exam 10/27/22 1432 MR#: [id number] Acct: [id number] Name: KRISS MICHAEL Rep #:[id number] : 1980 42 From: Cindy Alexandre MD [...] father have surgery for esophageal cancer at [facility]. [facility] Medical History (Updated 10/28/22 @ 08:39 [...] (4 mg/mL) oral elixir 60 mg G-tube 829,2099 SEIZURES 02/19/17 [History Last Taken 04/24/20 21:00] [...] respite care. Charges/Coding Visit Charges Inpatient E&M: 67731 Init Hosp L2 10/28/221929 <Electronically signed by Cindy Alexandre MD> Cosigner Signature (if applicable): CC: Dr. Chente Conn MD; Dr. Cindy Alexandre MD~ Signed [facility] Work Phone: [phone]) 750-130809-06-2023 Progress note Author Barry Young [facility] October 28, 2022 8:40am Note Date/Time October 28, 2022 8:40am [facility] Medical Records Department [address] [facility] [place] [address] Progress Note - Hospitalist 10/28/22 0835 MR#: [id number] Acct: [id number] Name: KRISS MICHAEL Rep #:[id number] : 1980 42 From: Barry stover MD PCP: Dr. Chente Conn MD Status:AD M IN Location: ICU ICU- Subjective Subjective No issues overnight, doing well [...] home instructions Charges/Coding Visit Charges Inpatient E&M: 62115 Subs Hosp L2 10/28/22 0840 <Electronically signed by Barry Young MD> Cosigner Signature (if applicable): CC: ~ Signed [facility] Work Phone: [phone]) [phone] Miscellaneous Notes* Telephone Encounter - Chichi Fowler RN - 06/30/2022 4:42 PM EDT [facility] nursing returned patient's mother Yue message regarding [...] e-mail. Mother will give order numbers to [facility]. Also recommended can apply stomahesive powder on mucosa. Advised maybe irritation from mucosa rubbing on pouch d/t prolapse vs the stool. Mom agreeable. Time spent: 30 minutes Chichi Fowler RN, BSN, CWOCN * Telephone Encounter - Amber Monreal RN - 06/30/2022 3:53 PM EDT [phone] Pt's mother called. She would like to discuss pt's stoma prolapse. documented in this encounterK[facility]-[address] De La Rosa [facility] June 22, 2022 8:24pm Note Date/Time June 22, 2022 6:47pm [facility] Medical Records Department [address] [place] [address] Emergency Department Summary 06/22/22 MR#: [id number] Acct: [id number] Name: KRISS MICHAEL Rep #:[id number] : 1980 42 From: Siddharth De La [...] not measuring this specifically obviously. No hematuria. [facility] Medical History Acute dyspnea Anemia in [...] % (Auto) 67.2 Lymph % (Auto) 21.5 Placer % (Auto) 8.5 Eos % (Auto) 2.4 [...] Color Urine Clarity Urine pH Ur Specific Gage Urine Protein Urine Glucose (UA) Urine Ketones Urine Occult Blood Urine Nitrite Urine Bilirubin Urine Urobilinogen Ur Leukocyte Esterase Urine RBC Urine WBC Ur Squamous Epith Cells Urine Bacteria Urine Mucus 06/22/22 06/22/22 19:10 19:20 WBC RBC Hgb Hct MCV MCH MCHC RDW Std Deviation RDW Coeff of Emilee Plt Count MPV Immature Gran % (Auto) Neut % (Auto) Lymph % (Auto) Placer % (Auto) Eos % (Auto) Baso % [...] Sl Cldy Urine pH 8.0 Ur Specific Gage 1.010 Urine Protein 30 H Urine Glucose [...] Victor Manuel Hannah MD at 19:23 EDT , Rhythm Strip Rhythm Strip: Sinus Tach [...] your Primary Care Provider. Call [facility] ([phone]) or report to the closest Emergency Room. Call 911 if necessary. 06/22/222023 <Electronically signed by Siddharth De La Rosa MD> Cosigner Signature (if applicable): CC: Dr. Chente Conn MD ~ Signed [facility] Work Phone: [phone]) 557-529204-24-2023 NoteHNO ID: [id number] Author: Cassie Cui RN Service: ? Author [...] Uriah MAXI Drainable pouch with soft outlet #41396. Order form provided. Also discussed use of [...] 1 hour 15 minutes Cassie BAL, RN, [facility]04-24-2023 History of Present illness Narrative* [...] Uriah MAXI Drainable pouch with soft outlet #13626. Order form provided. Also discussed use of [...] Tonia New Image flat flange with tape collar(cutting surface up to 3 1/2), high volume output pouch Current wearing time: 1 day Recommendations: Skin Care: Apply ConvaTec Stomahesive powder to irritated or denuded skin, brush away excess. 3M No sting skin barrier film. Pouching System: After reducing prolapse, applied Monroe Hollihesive long wedges to peristomal skin, Coloplast post-op pouch with window, Stomahesive paste, Mefix tape to frame Wear Time: 3-4 days goal Time Increment: 1 hour 15 minutes Cassie LEVINN, RN, CWOCN * Cassie Cui RN - 06/15/2022 3:33 [place] [address] Patient: Kriss Michael Patient Address: [address] [place] [address] [place] [address] Preferred Gender: male Date of : 1980 Type of Stoma: End Descending Colostomy Diagnosis: Constipation K59.0 OSTOMY SUPPLY ORDER FORM One Piece Ostomy Pouch Item Type: Coloplast Post-op pouch with a window #76632 30 day use - 2 Boxes Coloplast SenSura [place] MAXI Drainable Pouch with Soft Outlet Transparent Cut-to-fit 4 #74993 30 dayuse - 1 Box Tonia Hollihesive #7700 30 day use - 2 Boxes Procare Abdominal binder (62-74) #[id number] 30 day use - 2 Binders OR Procare Abdominal binder (45-62) #[id number] 30 day use - 2 Binders Refills: 11 Attending Physician: Dr. Leavitt For immediate authorization, please contact the physician s office. [facility] Nurse: VALERIANO Peters, CWOCN SIGNATURE: Cassie Cui RN PATIENT NAME: Kriss Michael DATE: June 15, 2022 TIME: 3:34 PM CONTACT #: [phone] documented in this encounterK[facility]04-24-2023 NoteHNO ID: [id number] Author: Cassie Cui RN Service: ? Author Type: Registered Nurse Type: Progress Notes Filed: 06/30/2022 4:35 PM Note Text: [facility] [place] [id number] Patient: Kriss Michael Patient Address: [address] [place] [address] Dr [address] [facility] Preferred [place] [phone] Gender: male Date of : 1980 Type of Stoma: End Descending Colostomy Diagnosis: Constipation K59.0 OSTOMY SUPPLY ORDER FORM Coloplast SenSura Uriah MAXI Drainable Pouch with Soft Outlet Transparent Cut-to-fit 4 #52849 30 day use - 1 Box Coloplast Bed Drainage Bag #45748 30 day use-2 bags Clinical Documentation Manager #5070 30 day use 1 Guide Travel Monroe Hollihesive #7700 30 day use - 2 Boxes Procare Abdominal binder (62-74) #[id number] 30 day use - 2 Binders OR Procare Abdominal binder (45-62) #[id number] 30 day use - 2 Binders Refills: 11 Attending Physician: Dr. Leavitt For immediate authorization, please contact the physician?s office. [facility] Nurse: VALERIANO Peters, CWOCN Addendum by: VALERIANO Virgen, CWOCN SIGNATURE: Cassie Cui RN PATIENT NAME: Kriss Michael DATE: June 15, 2022 TIME: 3:34 PM CONTACT #: [phone]04-21-[address] Munoz [facility] June 12, 2022 12:31pm Note Date/Time June 12, 2022 10: 51am [facility] Medical Records Department [address] [place] [address] Emergency Department Summary 06/12/22 MR#: [id number] Acct: [id number] Name: KRISS MICHAEL Rep #:[id number] : 1980 42 From: Naveen Hidalgo PCP: [...] history of recent mission for aspiration pneumonia. [facility] Medical History Acute dyspnea Anemia in [...] % (Auto) 50.9 Lymph % (Auto) 35.9 Placer % (Auto) 8.1 Eos % (Auto) 3.3 [...] your Primary Care Provider. Call [facility] ([phone]) or report to the closest Emergency Room. Call 911 if necessary. 06/12/22 1231 <Electronically signed by Naveen Munoz DO> Cosigner Signature (if applicable): CC: Dr. Chente Conn MD ~ Signed [facility] Work Phone: [phone]) 913-231503-15-2023 NoteHNO ID: [id number] Author: Yola Leavitt MD Service: ? Author [...] 2014. He has not been seen at [facility] since 2019 when he came for parastomal [...] included preparing to see the patient and [id number] patient care.[facility]03-[facility] History of Present illness Narrative* I Gregory Leavitt MD - 05/06/2022 4:45 PM EDT [...] 2014. He has not been seen at [facility] since 2019 when he came for parastomal [...] included preparing to see the patient and [id number] patient care. documented in this encounterK[facility]02-21-2023 Miscellaneous Notes* Telephone Encounter - Geetha Walter [...] see what could be done about this,. [phone] Ashly (mom) documented in this encounterKettering [facility]02-21-2023 Miscellaneous Notes* Telephone Encounter - Ebony Boateng - 04/14/2022 1:19 PM EST The patients mom stated that she can get into mychart. documented in this encounterKettering [facility]burg20[address] De La Torre [facility] March 24, 2022 8:03pm Note Date/Time March 24, 2022 5 :37pm [facility] Medical Records Department [address] [place] [address] Emergency Department Summary 03/24/22 MR#: [id number] Acct: [id number] Name: KRISS MICHAEL Rep #:[id number] : 1980 42 From: Dario De La [...] Prior similar symptoms: Yes Recent [facility] Medical History Acute dyspnea Anemia in [...] 79.9 H Lymph % (Auto) 13.1 L Placer % (Auto) 5.3 Eos % (Auto) 1.3 [...] Signed: Gerald Anne MD at 18:09 EST Reading Location ID and State: [address] [place] [address] , Service support , Rhythm Strip Rhythm Strip: Sinus Tach Rate: 140 Ectopy: None Critical Care Time Critical Care Time: Yes Critical care time (excluding procedures): 30-74 minutes (32), Including time spent: (History, physical, documentation, interpretation laboratory results, treatment for sepsis), Discussing w/Patient &/or Family/Recreational Director, Discussing w/Consultants, Arranging Admission or Transfer and [...] MD [Primary Care Provider] - Disposition Disposition: Acute Care Hospital [facility] What to do if you have Problems For any increased pain, shortness of breath, bleeding, nausea or vomiting, chestpain, or any unexpected problems, contact your Primary Care Provider. Call [facility] ([phone]) or report to the closest Emergency Room. Call 911 if necessary. 03/24/222002 <Electronically signed by Dario De La Torre MD> Cosigner Signature (if applicable): CC: Dr. Chente Conn MD ~ Signed [facility] Work Phone: 1(950) 560-243305-24-2019 History of Past illness Narrative* Problem Noted [...] latter does not explain HGB drop. - Ludlow removed - BP stable - MAP goal [...] to goal rate - finishing reglan 10mg q2tsazr for 24 hours today - monitor ostomy [...] -monitor BP Acute respiratory failure with hypoxia 12/12/201 3 12/17/2012 Overview: - due to aspiration [...] encounter (statuses as of 04/14/2022) [facility] History of Past illness Narrative* Problem Noted [...] latter does not explain HGB drop. - Ludlow removed - BP stable - MAP goal [...] to goal rate - finishing reglan 10mg r7lxjho for 24 hours today - monitor ostomy [...] for fevers through antibiotics. -anuric renal failure 2/2 ATN with toxic vanc levels , vanc held, APARNA -required intubation again due to desaturation, transferred back to MICU 2/25 -repeat infectious work up, CXR, echo, cultures [...] encounter (statuses as of 04/14/2022) [facility] History of Past illness Narrative* Problem Noted [...] to goal rate - finishing reglan 10mg x2ryezx for 24 hours today - monitor ostomy [...] encounter (statuses as of 05/08/2022) [facility] History of Past illness Narrative* Problem Noted [...] to goal rate - finishing reglan 10mg u6hitrt for 24 hours today - monitor ostomy [...] for fevers through antibiotics. -anuric renal failure 2/2 ATN with toxic vanc levels , vanc [...] encounter (statuses as of 06/16/2022) [facility] History of Past illness Narrative* Problem Noted [...] latter does not explain HGB drop. - Ludlow removed - BP stable - MAP goal [...] to goal rate - finishing reglan 10mg o7uosqv for 24 hours today - monitor ostomy [...] encounter (statuses as of 07/01/2022) [facility]* Diagnosis Onset Date Resolution Status Chronic respiratory failure [facility] Work Phone: Evaluation note* Diagnosis Onset Date Resolution Status Chronic respiratory failure chronic Nonrheumatic mitral valve prolapse [facility] Work Phone: Evaluation note* Diagnosis Onset Date Resolution Status Nonrheumatic mitral valve prolapse [facility] Work Phone: Evaluation note* Diagnosis Onset Date Resolution Status Nonrheumatic mitral valve prolapse chronic Chronic respiratory failure [facility] Work Phone: Evaluation note* Diagnosis Onset Date Resolution Status Chronic respiratory failure chronic Acute dyspnea acute Cyanosis acute Hypoxia acute Cerebral palsy [facility] Work Phone: Evaluation note* Diagnosis Onset Date Resolution Status Chronic respiratory failure chronic Acute dyspnea acute Colostomy prolapse acute Cyanosis acute Hypoxia acute Pseudomonas pneumonia acute Cerebral palsy chronic Chronic respiratory failure [facility] Work Phone: Evaluation note* Diagnosis Onset Date Resolution Status Acute dyspnea acute Colostomy prolapse acute Cyanosis acute Hypoxia acute Pseudomonas pneumonia acute Cerebral palsy chronic Chronic respiratory failure chronic Pseudomonas pneumonia acute Chronic respiratory failure [facility] Work Phone: Evaluation note* Diagnosis Onset Date Resolution Status Cerebral palsy chronic Chronic respiratory failure chronic Acute dyspnea resolved Cyanosis resolved Hypoxia resolved Chronic respiratory failure chronic Chronic respiratory failure [facility] Work Phone: Evaluation note* Diagnosis Onset Date Resolution Status Cerebral palsy chronic Chronic respiratory failure chronic Acute dyspnea resolved Cyanosis resolved Hypoxia resolved Chronic respiratory failure chronic Chronic respiratory failure chronic Acidosis, lactic acute Aspiration into airway acute Hyperpyrexia acute Sepsis acute Sinus tachycardia acute Cerebral palsy chronic Chronic respiratory failure with hypoxia [facility] Work Phone: Evaluation note* Diagnosis Functional disorder of stomach- Primary Unspecified functional disorder of stomach documented in this encounter [facility] [place] [facility]* Diagnosis Onset Date Resolution Status Acidosis, lactic resolved Aspiration into airway resol alan Hyperpyrexia resolved Sepsis resolved Sinus tachycardia resolved [facility] Work Phone: Evaluation note* Diagnosis 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 Attention to colostomy documented in this encounter [facility] [place] noteNo assessment information availableWMercy Health St[facility] Work Phone: Evaluation note* Diagnosis Onset Date Resolution Status Chronic respiratory failure with hypoxia [facility] Work Phone: Evaluation note* Diagnosis Onset Date Resolution Status Cerebral palsy acute GI bleed resolved Hematemesis acute [facility] Work Phone: Evaluation note* Diagnosis Onset Date Resolution Status GI bleed resolved Hematemesis resolved [facility] Work Phone: Evaluation note* Diagnosis Onset Date Resolution Status Cerebral palsy chronic GI bleed resolved Hematemesis resolved Cerebral palsy chronic Chronic respiratory failure chronic [facility] Work Phone: Evaluation note* Diagnosis Onset Date Resolution Status Cerebral palsy chronic GI bleed resolved Hematemesis resolved Cerebral palsy chronic Chronic respiratory failure chronic Acidosis, lactic acute Acute hypoxemic respiratory failure acute Aspiration pneumonia acute Cerebral palsy chronic [facility] Work Phone: Evaluation note* Diagnosis Onset Date Resolution Status Cerebral palsy chronic GI bleed resolved Hematemesis resolved Cerebral palsy chronic Chronic respiratory failure chronic Acidosis, lactic acute Acute hypoxemic respiratory failure acute Aspiration pneumonia acute Emesis, persistent acute Cerebral palsy chronic Chronic respiratory failure chronic [facility] Work Phone: Evaluation note* Diagnosis Onset Date Resolution Status Cerebral palsy chronic Chronic respiratory failure chronic Cerebral palsy chronic Chronic respiratory failure chronic Acidosis, lactic resolved Acute hypoxemic respiratory failure resolved Emesis, persistent resolved [facility] Work Phone: History and physical note Author Lucia Dillard [facility] March 23, 2023 4:44pm Note Date/Time March 23, 2023 4 :37pm [facility] Medical Records Department [address] [place] [id number] H&P Exam - Hospitalist 03/23/23 1633 MR#: [id number] Acct: [id number] Name: KRISS MICHAEL Rep #:[id number] : 1980 43 From: Lucia Dillard MD [...] seizure disorder, and GERD who presented to [facility] 03/23/2023 due to concern for aspiration [...] is presently not in any acute distress. [facility] Medical History Acute dyspnea Anemia in [...] (Auto) 70.6 H, Lymph % (Auto) 21.7, Placer % (Auto) 5.1, Eos % (Auto) 2.0, [...] documentation, 56Minutes Charges/Coding Visit Charges Inpatient E&M: 99927 Init Hosp L2 03/23/23 1644 <Electronically signed by Lucia Dillard MD> Cosigner Signature (if applicable): CC: Dr. Chente Conn MD; Dr. Lucia Dillard MD~ Signed [facility] Work Phone: Hospital Discharge instructions Additional Instructions Please return if you notice any changes to the patient's oxygenation. Please follow with his primary care physicians as well as specialist for outpatient evaluation and further treatment.[facility] Work Phone: Hospital Discharge instructions Additional Instructions Continue your current medications as prescribed. Ativan as needed for anxiety. Follow-up with your doctor as needed or return if worse. His labs today and CAT scan were unremarkable. There is no signs of any blood clots. No signs of any pneumonia. [facility] Work Phone: Hospital Discharge instructionsAdditional Instructions Mo's workup today was largely normal and reassuring. Because of his elevated heart rate prior to arrival is not clear. It could be from agitation. At this time he does not have signs of developing infection. If he has any worsening symptoms or further concerns please do not hesitate to return the emergency room.[facility] Work Phone: Reason for referral (narrative)No reason for referral information [facility] Work Phone: Chief Complaint and Reason [...] 2024 2:13p m Chief Complaint Admit Date INT LABSPEC May 09, 2024 10: 59am OSTEOPOROSIS June 15, 2024 1:4 7pm LABSPEC July 18, 2024 11:00 am standing order July 25, 2024 9:48a m LEFT KNEE , LEG July 26, 2024 2:13p m RESPITE CARE September 03, 2024 1:28 pm RESPITE CARE September 03, 2024 1:49 pm RESPITE CARE September 04, 2024 7:41 am RESPITE CARE September 05, 2024 7:17 am RESPITE CARE September 06, 2024 7:55 am Reason for Visit Admit Date Osteoporosis June 15, 2024 1:4 7pm Respite care available September 03, 2024 1 :28pm Chief Complaint Admit Date OSTEOPOROSIS June 15, 2024 1:4 7pm LABSPEC July 18, 2024 11:00 am standing order July 25, 2024 9:48a m LEFT KNEE , LEG July 26, 2024 2:13p m RESPITE CARE September 03, 2024 1:28 pm RESPITE CARE September 03, 2024 1:49 pm RESPITE CARE September 04, 2024 7:41 am RESPITE CARE September 05, 2024 7:17 am RESPITE CARE September 06, 2024 7:55 am standing order September 18, 2024 10:5 3am Chief Complaint Admit Date LABSPEC July 18, 2024 11:00 am standing order July 25, 2024 9:48a m LEFT KNEE , LEG July 26, 2024 2:13p m RESPITE CARE September 03, 2024 1:28 pm RESPITE CARE September 03, 2024 1:49 pm RESPITE CARE September 04, 2024 7:41 am RESPITE CARE September 05, 2024 7:17 am RESPITE CARE September 06, 2024 7:55 am standing order September 18, 2024 10:5 3am standing order October 16, 2024 11 :16am Reason for Visit Admit Date Respite care available September 03, 2024 1 :28pm Chief Complaint Admit Date LABSPEC July 18, 2024 11:00 am standing order July 25, 2024 9:48a m LEFT KNEE , LEG July 26, 2024 2:13p m RESPITE CARE September 03, 2024 1:28 pm RESPITE CARE September 03, 2024 1:49 pm RESPITE CARE September 04, 2024 7:41 am RESPITE CARE September 05, 2024 7:17 am RESPITE CARE September 06, 2024 7:55 am standing order September 18, 2024 10:5 3am standing order October 16, 2024 11 :16am GENERAL ILLNESS November 09, 2024 8:02am Family History No Family History Records Found [...] No May 19, 2021 9:15pm Power of Head Filter Press Tender No May 19 9:15pm Advance Directive Response Recorded Date/ Time Advance Directives No March 12, 2016 10:51am Living Will No November 30 11:11am Power of Head Filter Press Tender No November 30 11:11am Advance Directive Response Recorded Date/ Time Advance Directives No March 12, 2016 10:51am Living Will No November 30 3:13pm Power of Head Filter Press Tender No November 30 3:13pm Advance Directive Response Recorded Date/ Time Advance Directives No March 12, 2016 9:51am Living Will No November 30 2:13pm Power of Head Filter Press Tender No November 30, 2 022 2:13pm Advance Directive Response Recorded Date/ Time Name of Medical Power of Head Filter Press Tender PT MOM February 24, 2022 4:16pm Advance Directives No March 12, 2016 9:51am Living Will No February 24 4:16pm Power of Head Filter Press Tender Yes February 24 023 4:16pm Advance Directive Response Recorded Date/ Time Name of Medical Power of Head Filter Press Tender PT MOM February 24, 2022 4:16pm Name of Medical Power of Head Filter Press Tender parents Miky a nd Benigno March 24, 2022 5:11pm Advance Directives No March 12, 2016 9:51am Living Will No March 24 5:11pm Power of Head Filter Press Tender Yes March 24, 2022 5:11pm Advance Directive Response Recorded Date/ Time Name of Medical Power of Head Filter Press Tender PT MOM February 24, 2022 4:16pm Name of Medical Power of Head Filter Press Tender parents Miky a nd Benigno March 24, 2022 5:11pm Advance Directives No March 12, 2016 9:51am Living Will No March 24 9:35pm Power of Head Filter Press Tender No March 24, 2022 9:35pm Latest Code [...] Date/ Time Name of Medical Power of Head Filter Press Tender PT MOM February 24, 2022 5:16pm Name of Medical Power of Head Filter Press Tender parents Miky a nd Benigno March 24, 2022 6:11pm Advance Directives No March 12, 2016 10:51am Living Will No March 24 10:35pm Power of Head Filter Press Tender No March 24, 2022 10:35pm Advance Directive Response Recorded Date/ Time Name of Medical Power of Head Filter Press Tender PT MOM February 24, 2022 5:16pm Name of Medical Power of Head Filter Press Tender parents Miky a nd Benigno March 24, 2022 6:11pm Advance Directives No March 12, 2016 10:51am Living Will No June 12, 2022 10:42am Power of Head Filter Press Tender No June 12 10:42am Advance Directive Response Recorded Date/ Time Name of Medical Power of Head Filter Press Tender PT MOM February 24, 2022 5:16pm Name of Medical Power of Head Filter Press Tender parents Miky Pelaez March 24, 2022 6:11pm Name of Medical Power of Head Filter Press Tender MOTHER June 22, 2022 6:28pm Advance Directives No March 12, 2016 10:51am Living Will No June 22, 2022 6: 28pm Power of Head Filter Press Tender Yes June 22, 2022 6:28pm Advance Directive Response Recorded Date/ Time Name of Medical Power of Head Filter Press Tender MOTHER June 22, 2022 6:28pm Advance Directives No March 12, 2016 10:51am Living Will No June 22, 2022 6: 28pm Power of Head Filter Press Tender Yes June 22, 2022 6:28pm Advance Directive Response Recorded Date/ Time Name of Medical Power of Head Filter Press Tender Matteo & Benigno S prosty October 27, 2022 5:26pm Advance Directives No March 12, 2016 10:51am Living Will No October 27, 023 5:26pm Power of Head Filter Press Tender Yes October 27, 2022 5:26pm Advance Directive Response Recorded Date/ Time Name of Medical Power of Head Filter Press Tender Matteo & Benigno S prosty October 27, 2022 5:26pm Advance Directives No March 12, 2016 10:51am Living Will No December 10 9:56am Power of Head Filter Press Tender No December 10, 2022 9:56am Advance Directive Response Recorded Date/ Time Name of Medical Power of Head Filter Press Tender Matteo & Benigno S prosty October 27, 2022 5:26pm Advance Directives No March 12, 2016 10:51am Living Will No December 10 2:53pm Power of Head Filter Press Tender No December 10, 2022 2:53pm Advance Directive Response Recorded Date/ Time Advance Directives No March 12, 2016 9:51am Living Will No January 16, 023 7:25pm Power of Head Filter Press Tender No January 16, 2023 7:25pm Name of Medical Power of Head Filter Press Tender Matteo & Benigno S prosty October 27, 2022 4:26pm Advance Directive Response Recorded Date/ Time Name of Medical Power of Head Filter Press Tender Mother March 23, 2023 12:16pm Advance Directives No March 12, 2016 9:51am Living Will No March 23 12:16pm Power of Head Filter Press Tender Yes March 23, 2023 12:16pm Advance Directive Response Recorded Date/ Time Name of Medical Power of Head Filter Press Tender Mother March 23, 2023 5:05pm Advance Directives No March 12, 2016 9:51am Living Will No March 23 5:05pm Power of Head Filter Press Tender Yes March 23, 2023 5:05pm Advance Directive Response Recorded Date/ Time Name of Medical Power of Head Filter Press Tender Mother March 23, 2023 5:05pm Name of Medical Power of Head Filter Press Tender parents April 13, 2023 12:23pm Advance Directives No March 12, 2016 9:51am Living Will Yes April 13 12:23pm Power of Head Filter Press Tender Yes April 13, 2023 12:23pm Advance Directive Response Recorded Date/ Time Name of Medical Power of Head Filter Press Tender Mother March 23, 2023 6:05pm Name of Medical Power of Head Filter Press Tender parents April 13, 2023 1:23pm Advance Directives No March 12, 2016 10:51am Living Will Yes April 13 1:23pm Power of Head Filter Press Tender Yes April 13, 2023 1:23pm Advance Directive Response Recorded Date/ Time Living Will Yes April 13 1:23pm Do you have a Healthcare Power of Head Filter Press Tender? Yes April 13, 2023 1:23pm Living Will No January 30 5:12pm Do you have a Healthcare Power of Head Filter Press Tender? No 2024 5:12pm Advance Directives No March 12, 2016 10:51am Advance Directive Response Recorded Date/ Time Living Will Yes April 13 1:23pm Do you have a Healthcare Power of Head Filter Press Tender? Yes April 13, 2023 1:23pm Advance Directives No March 12, 2016 10:51am Advance Directive Response Recorded Date/ Time Advance Directives No March 12, 2016 10:51am Advance Directive Response Recorded Date/ Time Do you have a Healthcare Power of Head Filter Press Tender? Yes September 03, 2024 2:29pm Advance Directives No March 12, 2016 10:51am Advance Directive Response Recorded Date/ Time Do you have a Healthcare Power of Head Filter Press Tender? Yes September 03, 2024 2:29pm Do you have a Healthcare Power of Head Filter Press Tender? No November 09, 2024 8:07am Advance Directives No March 12, 2016 10:51am [...] Provider, Referr ing Provider Active Valarie Kee MAC DEVELOPER, MAC DEVELOPER-C Attending Provider Active Team Status: Active Member [...] Tolentino MD Other Provider Active Valarie Kee MAC DEVELOPER, MAC DEVELOPER-C Other Provider Active Dr. Lucia Dillard MD [...] Tolentino MD Other Provider Active Valarie Kee MAC DEVELOPER, MAC DEVELOPER-C Other Provider Active Dr. Lucia Dillard MD [...] Tolentino MD Other Provider Active Valarie Kee MAC DEVELOPER, MAC DEVELOPER-C Other Provider Active Dr. Lucia Dillard MD [...] Tolentino MD Other Provider Active Valarie Kee MAC DEVELOPER, MAC DEVELOPER-C Other Provider Active Dr. Lucia Dillard MD [...] Tolentino MD Other Provider Active Valarie Kee MAC DEVELOPER, MAC DEVELOPER-C Other Provider Active Dr. Lucia Dillard MD [...] Tolentino MD Other Provider Active Valarie Kee MAC DEVELOPER, MAC DEVELOPER-C Other Provider Active Dr. Lucia Dillard MD [...] Tolentino MD Other Provider Active Valarie Kee MAC DEVELOPER, MAC DEVELOPER-C Other Provider Active Dr. Lucia Dillard MD [...] Tolentino MD Other Provider Active Valarie Kee MAC DEVELOPER, MAC DEVELOPER-C Other Provider Active Dr. Fiona Echavarria MD [...] Tolentino MD Other Provider Active Valarie Kee MAC DEVELOPER, MAC DEVELOPER-C Other Provider Active Dr. Fiona Echavarria MD [...] Tolentino MD Other Provider Active Valarie Kee MAC DEVELOPER, MAC DEVELOPER-C Other Provider Active Team Status: Inactive Member [...] Tolentino MD Other Provider Active Valarie Kee MAC DEVELOPER, MAC DEVELOPER-C Other Provider Active Attendant Sales Relationship Specialty Start Date End Date Chente Perkins MD [address] [place] [id number] PCP - General 06/03/00 [facility] Community Resource 05/19/18 Attendant Sales Relationship Specialty Start Date End Date Chente Perkins MD [address] [place] [address] PCP - General 06/03/00 [facility] Community Resource 05/19/18 Attendant Sales Relationship Specialty Start Date End Date Chente Perkins MD [address] [place] [address] PCP - General 06/03/00 [facility] Community Resource 05/19/18 Team Status: Active [...] Tolentino MD Other Provider Active Valarie Kee MAC DEVELOPER, MAC DEVELOPER-C Other Provider Active Dr. Lucia Dillard MD [...] Tolentino MD Other Provider Active Valarie Kee MAC DEVELOPER, MAC DEVELOPER-C Other Provider Active Dr. Lucia Dillard MD [...] Tolentino MD Other Provider Active Valarie Kee MAC DEVELOPER, MAC DEVELOPER-C Other Provider Active Dr. Lucia Dillard MD [...] Tolentino MD Other Provider Active Valarie Kee MAC DEVELOPER, MAC DEVELOPER-C Other Provider Active Dr. Lucia Dillard MD [...] MD Other Provider Active Valarie Kee NP, MAC DEVELOPER-C Other Provider Active Dr. Lucia Dillard MD [...] MD Other Provider Active Valarie Kee NP, MAC DEVELOPER-C Other Provider Active Dr. Lucia Dillard MD [...] MD Other Provider Active Valarie Kee NP, MAC DEVELOPER-C Other Provider Active Dr. Lucia Dillard MD [...] Tolentino MD Other Provider Active Valarie Kee MAC DEVELOPER, MAC DEVELOPER-C Other Provider Active Dr. Lucia Dillard MD [...] MD Other Provider Active Valarie Kee NP, MAC DEVELOPER-C Other Provider Active Dr. Roberto Hathaway MD [...] MD Other Provider Active Valarie Kee NP, MAC DEVELOPER-C Other Provider Active Dr. Roberto Hathaway MD [...] MD Other Provider Active Valarie Kee NP, MAC DEVELOPER-C Other Provider Active Dr. Roberto Hathaway MD [...] Tolentino MD Other Provider Active Valarie Kee MAC DEVELOPER, MAC DEVELOPER-C Other Provider Active Dr. Roberto Hathaway MD [...] DO Referring Provider, Emergency P zulema Active Attendant Sales Relationship Specialty Start Date End Date Chente Perkins MD [address] [place] [id number] PCP - General 06/03/00 [facility] Community Resource 05/19/18 Team Status: Inactive Member Role Status [...] Primary Care Provider Active Dr. Camacho Gonzalez , DO Admit Provider, Other Provide r Active Dr. Barry Young MD Other Provider Active Dr. Cindy Alexandre MD Other Provider Active Dr. Vanessa Roberts , DO Attending Provider Active Dr. Michael Posadas MD Other Provider Active Team Status: Active Member Role Status Dates Dr. Chente Conn MD Primary Care Provider Active Dr. Torey Huffman MD Attending Provider, Referring Prov ider Active Team Status: Active Member Role Status Dates Dr. Chente Conn MD Primary Care Provider Active Dr. Miky Rahman DO Emergency Provider Active Dr. Donte Abebe , DO Admit Provider, Attending Provider Active Team Status: Active Member Role Status Dates Dr. Chente Conn MD Primary Care Provider Active Dr. Stefan Gregory , Attending Provider Active Team Status: Active Member Role Status Dates Dr. Chente Conn MD Primary Care Provider Active Dr. Miky Rahman DO Emergency Provider Active Dr. Donte Abebe , DO Admit Provi carlene, Attending Provider, Other Provider Active Team Status: Active Member Role Status Dates Dr. Chente Conn MD Primary Care Provider Active Dr. Miky Rahman DO Emergency Provider Active Dr. Donte Abebe , DO Admit Provider, Other Pro vider Active Dr. Stefan Gregory , DO Attending Provider Active Team Status: Inactive Member Role Status Dates Dr. Chente Conn MD Primary Care Provider Active Dr. Miky Rahman DO Emergency Provider Active Dr. Donte Abebe , DO Admit Provider, Attending Provider Active Team Status: Active Member Role Status Dates Dr. Chente Conn MD Primary Care Provider Active Dr. Stefan Gregory , Attending Provider Active Dr. Donte Abebe DO Referring Provider Active Team Status: Active Member Role Status Dates Dr. Chente Conn MD Primary Care Provider Active Dr. Miky Rahman DO Emergency Provider Active Dr. Donte Abebe , DO Admit Provi carlene, Referring Provider, Other Provider Active Dr. Stefan rGegory , DO Attending Provider Active Team Status: Inactive Member Role Status Dates Dr. Chente Conn MD Primary Care Provider Active Dr. Dalton Lester , Emergency Provider Active Team Status: Inactive Member Role Status Dates Dr. Chente Conn MD Primary Care Provider Active Dr. Dalton Lester , DO Attending Provider, Emergency Provider Active Team [...] Other Provider Active Dr. Camacho Gonzalez DO Other Provider Active Team Status: Active Member [...] Torey Huffman MD Primary Care Provider, Attending Roxi poole Active Team Status: Active Member Role Status [...] 2024 End: April 04, 2024 Amber Dior NP-C Attending Provider Active Start: April 04, 2024 [...] 2024 End: May 09, 2024 Valarie Kee MAC DEVELOPER, MAC DEVELOPER-C Attending Provider Active Start: May 09, 2024 End: May 09, 2024 Valarie Kee MAC DEVELOPER, MAC DEVELOPER-C Referring Provider Active Start: May 09, 2024 [...] 2024 End: May 09, 2024 Valarie Kee MAC DEVELOPER, MAC DEVELOPER-C Attending Provider Active Start: May 09, 2024 End: May 09, 2024 Valarie Kee MAC DEVELOPER, MAC DEVELOPER-C Referring Provider Active Start: May 09, 2024 [...] 2024 End: May 09, 2024 Valarie Kee MAC DEVELOPER, MAC DEVELOPER-C Attending Provider Active Start: May 09, 2024 End: May 09, 2024 Valarie Kee MAC DEVELOPER, MAC DEVELOPER-C Referring Provider Active Start: May 09, 2024 [...] 2024 End: July 18, 2024 Dr. Matteo Posadsa MD Referring Provider Active Sta rt: July [...] August 22, 2024 End: August 22, 2024 Team Status: Inactive Member Role/Relationship Status Dates Dr. Chente Conn MD Primary Care Provider Active Start: May 09, 2024 End: May 09, 2024 Valarie Kee MAC DEVELOPER, MAC DEVELOPER-C Attending Provider Active Start: May 09, 2024 End: May 09, 2024 Valarie Kee MAC DEVELOPER MAC DEVELOPER-C Referring Provider Active Start: May 09, 2024 [...] August 22, 2024 End: August 22, 2024 Team Status: Inactive Member Role/Relationship Status Dates Dr. Chente Conn MD Primary Care Provider Active Start: September 03, 2024 End: September 06, 2024 Dr. Tania Randle MD Admit Provider Active St art: September 03, 2024 End: September 06, 2024 Dr. Tania Randle MD Other Provider Active St art: September 03, 2024 End: September 06, 2024 Dr. Torey James DO Attending Provider Active Start: September 03, 2024 End: September 06, 2024 Team Status: Active Member Role/Relationship Status Dates Dr. Chente Conn MD Primary Care Provider Active Start: September 03, 2024 Dr. Tania Randle MD Admit Provider Active St art: September 03, 2024 Dr. Tania Randle MD Attending Provider Active Start: September 03, 2024 Dr. Tania aRndle MD Other Provider Active St art: September 03, 2024 Team Status: Active Member Role/Relationship Status Dates Dr. Chente Conn MD Primary Care Provider Active Start: September 04, 2024 Dr. Tania Randle MD Admit Provider Active St art: September 04, 2024 Dr. Tania Randle MD Other Provider Active St art: September 04, 2024 Dr. Torey James DO Attending Provider Active Start: September 04, 2024 Dr. Torey James DO Other Provider Active Star t: September 04, 2024 Team Status: Active Member Role/Relationship Status Dates Dr. Chente Conn MD Primary Care Provider Active Start: September 05, 2024 Dr. Tania Randle MD Admit Provider Active St art: September 05, 2024 Dr. Tania Randle MD Other Provider Active St art: September 05, 2024 Dr. Torey James DO Attending Provider Active Start: September 05, 2024 Dr. Torey James DO Other Provider Active Star t: September 05, 2024 Team Status: Active Member Role/Relationship Status Dates Dr. Chente Conn MD Primary Care Provider Active Start: September 06, 2024 Dr. Tania Randle MD Admit Provider Active St art: September 06, 2024 Dr. Tania Randle MD Other Provider Active St art: September 06, 2024 Dr. Torey James DO Attending Provider Active Start: September 06, 2024 Dr. Torey James DO Other Provider Active Star t: September 06, 2024 Team Status: Inactive Member Role/Relationship Status [...] August 22, 2024 End: August 22, 2024 Team Status: Inactive Member Role/Relationship Status Dates Dr. Chente Conn MD Primary Care Provider Active Start: September 03, 2024 End: September 06, 2024 Dr. Tania Randle MD Admit Provider Active St art: September 03, 2024 End: September 06, 2024 Dr. Tania Randle MD Other Provider Active St art: September 03, 2024 End: September 06, 2024 Dr. Torey James DO Attending Provider Active Start: September 03, 2024 End: September 06, 2024 Team Status: Active Member Role/Relationship Status Dates Dr. Chente Conn MD Primary Care Provider Active Start: September 03, 2024 Dr. Tania Randle MD Admit Provider Active St art: September 03, 2024 Dr. Tania Randle MD Attending Provider Active Start: September 03, 2024 Dr. Tania Randle MD Other Provider Active St art: September 03, 2024 Team Status: Active Member Role/Relationship Status Dates Dr. Chente Conn MD Primary Care Provider Active Start: September 04, 2024 Dr. Tania Randle MD Admit Provider Active St art: September 04, 2024 Dr. Tania Randle MD Other Provider Active St art: September 04, 2024 Dr. Torey James DO Attending Provider Active Start: September 04, 2024 Dr. Torey James DO Other Provider Active Star t: September 04, 2024 Team Status: Active Member Role/Relationship Status Dates Dr. Chente Conn MD Primary Care Provider Active Start: September 05, 2024 Dr. Tania Ranlde MD Admit Provider Active St art: September 05, 2024 Dr. Tania Randle MD Other Provider Active St art: September 05, 2024 Dr. Torey James DO Attending Provider Active Start: September 05, 2024 Dr. Torey James DO Other Provider Active Star t: September 05, 2024 Team Status: Active Member Role/Relationship Status Dates Dr. Chente Conn MD Primary Care Provider Active Start: September 06, 2024 Dr. Tania Randle MD Admit Provider Active St art: September 06, 2024 Dr. Tania Randle MD Other Provider Active St art: September 06, 2024 Dr. Torey James DO Attending Provider Active Start: September 06, 2024 Dr. Torey James DO Other Provider Active Star t: September 06, 2024 Team Status: Inactive Member Role/Relationship Status Dates Dr. Chente Conn MD Primary Care Provider Active Start: September 18, 2024 End: September 21, 2024 Dr. Chente Conn MD Attending Provider Active Start: September 18, 2024 End: September 21, 2024 Dr. Chente Conn MD Referring Provider Active Start: September 18, 2024 End: September 21, 2024 Team Status: Inactive Member Role/Relationship [...] August 22, 2024 End: August 22, 2024 Team Status: Inactive Member Role/Relationship Status Dates Dr. Chente Conn MD Primary Care Provider Active Start: September 03, 2024 End: September 06, 2024 Dr. Tania Randle MD Admit Provider Active St art: September 03, 2024 End: September 06, 2024 Dr. Tania Randle MD Other Provider Active St art: September 03, 2024 End: September 06, 2024 Dr. Torey James DO Attending Provider Active Start: September 03, 2024 End: September 06, 2024 Team Status: Active Member Role/Relationship Status Dates Dr. Chente Conn MD Primary Care Provider Active Start: September 03, 2024 Dr. Tania Randle MD Admit Provider Active St art: September 03, 2024 Dr. Tania Randle MD Attending Provider Active Start: September 03, 2024 Dr. Tania Randle MD Other Provider Active St art: September 03, 2024 Team Status: Active Member Role/Relationship Status Dates Dr. Chente Conn MD Primary Care Provider Active Start: September 04, 2024 Dr. Tania Randle MD Admit Provider Active St art: September 04, 2024 Dr. Tania Randle MD Other Provider Active St art: September 04, 2024 Dr. Torey James DO Attending Provider Active Start: September 04, 2024 Dr. Torey James DO Other Provider Active Star t: September 04, 2024 Team Status: Active Member Role/Relationship Status Dates Dr. Chente Conn MD Primary Care Provider Active Start: September 05, 2024 Dr. Tania Randle MD Admit Provider Active St art: September 05, 2024 Dr. Tania Randle MD Other Provider Active St art: September 05, 2024 Dr. Torey James DO Attending Provider Active Start: September 05, 2024 Dr. Torey James DO Other Provider Active Star t: September 05, 2024 Team Status: Active Member Role/Relationship Status Dates Dr. Chente Conn MD Primary Care Provider Active Start: September 06, 2024 Dr. Tania Randle MD Admit Provider Active St art: September 06, 2024 Dr. Tania Randle MD Other Provider Active St art: September 06, 2024 Dr. Torey James DO Attending Provider Active Start: September 06, 2024 Dr. Torey James DO Other Provider Active Star t: September 06, 2024 Team Status: Inactive Member Role/Relationship Status Dates Dr. Chente Conn MD Primary Care Provider Active Start: September 18, 2024 End: September 21, 2024 Dr. Chente Conn MD Attending Provider Active Start: September 18, 2024 End: September 21, 2024 Dr. Chente Conn MD Referring Provider Active Start: September 18, 2024 End: September 21, 2024 Team Status: Inactive Member Role/Relationship Status Dates Dr. Chente Conn MD Primary Care Provider Active Start: October 16, 2024 End: October 22, 2024 Dr. Chente Conn MD Attending Provider Active Start: October 16, 2024 End: October 22, 2024 Dr. Chente Conn MD Referring Provider Active Start: October 16, 2024 End: October 22, 2024 Team Status: Active Member Role/Relationship Status Dates Dr. Chente Conn MD Primary care physician Active Team Status: Inactive Member Role/Relationship Status Dates Dr. Chente Conn MD Primary care physician Active Start: July 18, 2024 End: July 18, 2024 Dr. Matteo Posadas MD Attending physician Active St art: July 18, 2024 End: July 18, 2024 Dr. Matteo Posadas MD Referring Provider Active Sta rt: July 18, 2024 End: July 18, 2024 Team Status: Inactive Member Role/Relationship Status Dates Dr. Chente Conn MD Primary care physician Active Start: July 25, 2024 End: August 21, 2024 Dr. Chente Conn MD Attending physician Active Start: July 25, 2024 End: August 21, 2024 Dr. Chente Conn MD Referring Provider Active Start: July 25, 2024 End: August 21, 2024 Team Status: Inactive Member Role/Relationship Status Dates Dr. Chente Conn MD Primary care physician Active Start: July 26, 2024 End: July 26, 2024 Dr. Roddy Quinones MD Attending physician Active Start: July 26, 2024 End: July 26, 2024 Dr. Roddy Quinones MD Referring Provider Active Start: July 26, 2024 End: July 26, 2024 Team Status: Inactive Member Role/Relationship Status Dates Dr. Chente Conn MD Primary care physician Active Start: August 22, 2024 End: August 22, 2024 Dr. Chente Conn MD Attending physician Active Start: August 22, 2024 End: August 22, 2024 Dr. Chente Conn MD Referring Provider Active Start: August 22, 2024 End: August 22, 2024 Team Status: Inactive Member Role/Relationship Status Dates Dr. Chente Conn MD Primary care physician Active Start: September 03, 2024 End: September 06, 2024 Dr. Tania Randle MD Admitting physician Active Start: September 03, 2024 End: September 06, 2024 Dr. Tania Randle MD Nurse Practitioner Active Start: September 03, 2024 End: September 06, 2024 Dr. Torey James DO Attending physician Active Start: September 03, 2024 End: September 06, 2024 Team Status: Active Member Role/Relationship Status Dates Dr. Chente Conn MD Primary care physician Active Start: September 03, 2024 Dr. Tania Randle MD Admitting physician Active Start: September 03, 2024 Dr. Tania Randle MD Attending physician Active Start: September 03, 2024 Dr. Tania Randle MD Nurse Practitioner Active Start: September 03, 2024 Team Status: Active Member Role/Relationship Status Dates Dr. Chente Conn MD Primary care physician Active Start: September 04, 2024 Dr. Tania Randle MD Admitting physician Active Start: September 04, 2024 Dr. Tania Randle MD Nurse Practitioner Active Start: September 04, 2024 Dr. Torey James DO Attending physician Active Start: September 04, 2024 Dr. Torey James DO Nurse Practitioner Active Start: September 04, 2024 Team Status: Active Member Role/Relationship Status Dates Dr. Chente Conn MD Primary care physician Active Start: September 05, 2024 Dr. Tania Randle MD Admitting physician Active Start: September 05, 2024 Dr. Tania Randle MD Nurse Practitioner Active Start: September 05, 2024 Dr. Torey James DO Attending physician Active Start: September 05, 2024 Dr. Torey James DO Nurse Practitioner Active Start: September 05, 2024 Team Status: Active Member Role/Relationship Status Dates Dr. Chente Conn MD Primary care physician Active Start: September 06, 2024 Dr. Tania Randle MD Admitting physician Active Start: September 06, 2024 Dr. Tania Randle MD Nurse Practitioner Active Start: September 06, 2024 Dr. Torey James DO Attending physician Active Start: September 06, 2024 Dr. Torey James DO Nurse Practitioner Active Start: September 06, 2024 Team Status: Inactive Member Role/Relationship Status Dates Dr. Chente Conn MD Primary care physician Active Start: September 18, 2024 End: September 21, 2024 Dr. Chente Conn MD Attending physician Active Start: September 18, 2024 End: September 21, 2024 Dr. Chente Conn MD Referring Provider Active Start: September 18, 2024 End: September 21, 2024 Team Status: Inactive Member Role/Relationship Status Dates Dr. Chente Conn MD Primary care physician Active Start: October 16, 2024 End: October 22, 2024 Dr. Chente Conn MD Attending physician Active Start: October 16, 2024 End: October 22, 2024 Dr. Chente Conn MD Referring Provider Active Start: October 16, 2024 End: October 22, 2024 Team Status: Inactive Member Role/Relationship Status Dates Dr. Chente Conn MD Primary care physician Active Start: November 09, 2024 End: November 09, 2024 Dr. Mayra Shah DO Emergency Departm ent Physician Active Start: November 09, 2024 End: November 09, 2024 Source Comments (unrecognize d section and content) In the event this informatio n is protected by the Federal Confidentiality of Alcohol and Drug Abuse Patient Records regulations: The Federal rules restrict any use of the information to criminally investigate or prosecute any alcohol or drug abuse patient.[facility] the event this information is protected by the Federal Confidentiality of Alcohol and Drug Abuse Patient Records regulations: The Federal rules restrict any use of the information to criminally investigate or prosecute any alcohol or drug abuse patient.[facility] the event this information is protected by the Federal Confidentiality of Alcohol and Drug Abuse Patient Records regulations: The Federal rules restrict any use of the information to criminally investigate or prosecute any alcohol or drug abuse patient.[facility] the event this information is protected by the Federal Confidentiality of Alcohol and Drug Abuse Patient Records regulations: The Federal rules restrict any use of the information to criminally investigate or prosecute any alcohol or drug abuse patient.[facility] the event this information is protected by the Federal Confidentiality of Alcohol and Drug Abuse Patient Records regulations: The Federal rules restrict any use of the information to criminally investigate or prosecute any alcohol or drug abuse patient.[facility] Reason for Visit (unrecogniz ed section and content) Reason Comments Patient Update Patient Question Reason Comments Patient Update Reason Comments Follow Up Reason Comments Stoma Consult (unrecognized sect ion and content) No Status Records FoundNo Status Records Found INFORMATION SOURCE (unrecogn ized section and content) DATE CREATED AUTHOR 07/02/2022 [facility] DATE CREATED AUTHOR AUTHOR'S LAN LOVE 01/03/2025 [facility] FOR RECORDS PERTAINING TO PATIENTS WHO [...] BE BASED ON THE PRIMARY CLINICAL RECORDS. [facility] [employer] [facility]. provides no warranty or guarantee of the accuracy or completeness of information in this document.
[2025-02-16 07:32] LABS: Hematocrit 37.3 % (40-54); Hemoglobin 11.9 g/dL (13.0-16.5); Immature Granulocytes Count 0.060 X10^3/uL (0.0-0.0); Mean Corp Hgb Conc 31.9 g/dL (32-36); Mean Corpuscular Volume 84.6 fL (80-94); Mean Platelet Vol. 9.6 fl (6.2-12.0); NRBC Flagged by Analyzer 0 % (0-5); Platelet Count 474 K/mm3 (150-450); RBC Distribution Width CV 17.9 % (11.6-14.6); RBC Distribution Width SD 55.3 fl (35.1-43.9); Red Blood Count 4.41 M/mm3 (4.6-6.2); White Blood Count 16.3 K/mm3 (4.4-11.0)
[2025-02-16 07:37] LABS: Mucous, Urine 0 SEEN /hpf (<or=2+); Red Blood Cells-Urine 0 SEEN /hpf (0-5); Squamous Epithelial Cells - UA 0 SEEN /hpf (0-5)
[2025-02-16 07:42] LABS: Prothrombin Time (Protime)PT. 13.5 SECONDS (11.7-14.9)
[2025-02-16 07:43] LABS: Partial Thromboplast Time 30.1 Seconds (24.1-36.2)
[2025-02-16 07:50] LABS: Color, Urine Yellow (Yellow); Glucose, Dipstick Normal (Normal); Ketone-Dipstick Negative (Negative); Leukocyte Esterase-Dipstick Negative /ul (Negative); Nitrite-Dipstick Negative (Negative); Occult Blood-Urine Negative /ul (Negative); Protein-Dipstick 15 mg/dl (Negative); Specific Gravity, Urine 1.015 (1.002-1.030); Urine Bilirubin Dipstick Negative (Negative)
[2025-02-16 07:55] LABS: AST(SGOT) 18 U/L (<=37); Alanine Aminotransfer ALT/SGPT 20 U/L (<=46); Albumin, Serum 4.3 g/dL (3.5-5.0); Alkaline Phosphatase 229 U/L (40-129); Anion Gap 20 (7-18); BUN 12 mg/dL (4-19); BUN/Creat Ratio 22.0 RATIO (10-20); Calcium,Total 9.8 mg/dL (7.6-11.0); Carbon Dioxide 25.7 mmol/L (20.0-29.0); Chloride 92 mmol/L (96-106); Estimated Creatinine Clearance 159.41 ml/min (50-250); Globulin 5.4 g/dL (2.2-4.2); Glucose 144 mg/dL (70-99); Potassium 4.3 mmol/L (3.5-5.1)
--- NOTE | 2025-02-16 08:15 | RAD_ITS ---
PROCEDURE: CHEST 1 VIEW (PORTABLE) 02/16/2025 REASON FOR EXAM: SOB TECHNIQUE: Frontal view of the chest. COMPARISON: Chest radiograph 12/21/2024 FINDINGS: Hardware: Tracheostomy tube. Right chemo port catheter extending to the cavoatrial region. Heart: Stable cardiomegaly. Pulmonary venous congestion. Lungs: Reduced lung volumes bilaterally likely secondary to patient body habitus. No pneumothorax or pleural effusion. Bones: No acute abnormalities. RAD/Chest 1 View (Portable) IMPRESSION: Reduced lung volumes bilaterally likely secondary to patient body habitus. No radiographic evidence for focal lung consolidation. Reading Location: [id number]
[2025-02-16] MEDS: Vancomycin HCl 1,250 MG in 0.9% Normal Saline (250mL Bag) 250 ML 167 MG IV (09:05)
[2025-02-16 09:17] LABS: Base Excess 7 mmol/L (-2 to +2); FI02 15.0; PEEP 8; PO2 31 mmHG (75-100); RR 2; SITE R Brach; SO2 57 % (94-98)
--- NOTE | 2025-02-16 09:27 | PCM.HP.STD ---
HPI - General General Date of Admission: 02/16/25 Date of Service: 02/16/25 Chief Complaint: tachycardia HPI Narrative KRISS MICHAEL, is a 45 M with an extensive past medical history as outlined including cerebral palsy with spastic quadriplegia and chronic respiratory failure, vent dependent via the trach who lives at home with his parents. He was admitted through the ED on 02/06/2025 on account of increased butyrin production and tachycardia. Patient is nonverbal and history was mainly taken from his mother. According to his mother patient has a tube coming during the day to take care of him. She said he was fine during the day yesterday and last night his aide came to get her because his heart rate had gone up and he was having increased sputum production. She did not notice him having any fever or chills or nausea. She did not notice him having any cough. He has been on his regular vent settings. He said his heart rate continued going up so she decided to bring him to the ED. Review of systems otherwise negative. Vitals in the ED were BP of 110/75, MT of 100, RR of 20 and temp of 97.9F. He was saturating at 95% on his ventilator. CBC showed Hb of 11.9, wbc of 16.3 and platelets of 474. INR was 1. Chemistry shows sodium of 137 potassium of 4.3 and bicarb of 25.7. Creatinine was 0.55. Lactic acid was 6.9. Total bilirubin was 0.27 with AST and ALT being normal and ALP slightly elevated at 229. Urinalysis showed no evidence of UTI. CT abdomen and pelvis showed no evidence of bowel obstruction and showed redemonstrated parastomal herniation of the bowel with an unchanged partial left colectomy with chronic wall thickening and distention of the rectal pouch with the PEG tube extending to the stomach. Chest x-ray showed reduced lung volumes bilaterally likely secondary to body habitus but no evidence of focal lung consolidation. He has been admitted to be managed for septic shock by lactic acid criteria of unclear etiology. He was started on broad-spectrum antibiotics and blood and urine cultures obtained. He has been admitted to the ICU. [facility] Medical History Acute aspiration pneumonitis Hypogonadism in male Osteoporosis History of aspiration pneumonia Tachycardia Aspiration pneumonia Anxiety GERD (gastroesophageal reflux disease) Non-smoker On home oxygen therapy Pulmonary embolism Seizures Cerebral palsy Chronic respiratory failure with hypoxia Pseudomonas pneumonia Colostomy prolapse Cerebral palsy Acute dyspnea Anemia in chronic illness Upper GI bleeding (04/2020) Thrombocytopenia Pulmonary embolism on left (06/14/19) Iron deficiency anemia Obesity Tracheostomy in place Debility Chronic respiratory failure Edema Nonrheumatic mitral valve prolapse Redundant colon History of seizure disorder Home Medications ?Medication ?Instructions ?Recorded ?Last Taken ?Type phenobarbital 20 mg/5 mL (4 mg/mL) 60 mg G-tube 0830,2100 SEIZURES 02/19/17 09/03/24 History oral elixir metoclopramide HCl 5 mg/5 mL oral 10 mg feeding tube 0830,1600,2100 09/16/18 09/03/24 History solution STOMACH Cough Assist 1 dose .Route .MEDSUPPLY assist in 12/25/18 09/03/24 History clearing secretions gabapentin 250 mg/5 mL oral 500 mg G-tube 0000,0600,1200,1800 09/26/19 09/03/24 History solution SEIZURES albuterol sulfate 2.5 mg/3 mL 2.5 mg inhalation Q4H PRN Sob &/Or 11/27/20 09/03/24 History (0.083 %) solution for nebulization Wheezing cholecalciferol (vitamin D3) 10 15 mcg feeding tube 0830 SUPPLEMENT 03/24/22 09/03/24 History mcg/mL (400 unit/mL) oral drops acetaminophen 650 mg/20.3 mL oral 650 mg feeding tube 10/24/22 01/04/24 History suspension 0000,0600,1200,1800 PRN PAIN aluminum-mag hydroxide-simethicone 5 ml PO 0000,0600,1200,1800 PRN 10/24/22 09/03/24 History 200 mg-200 mg-20 mg/5 mL oral susp ANTACID baclofen 20 mg tablet 20 mg feeding tube Q6H MUSCLE 12/10/22 09/03/24 History SPASMS ondansetron 4 mg disintegrating 4 mg PO Q8H PRN NAUSEA/VOMITING 12/13/22 Unknown Rx tablet #30 tabs esomeprazole magnesium 40 mg 40 mg G-tube BID ACID REFLUX 03/23/23 09/03/24 History granules delayed release for susp (Nexium Packet) ipratropium 0.5 mg-albuterol 3 mg 3 ml inhalation Q4H PRN SOB &/OR 03/23/23 09/03/24 History (2.5 mg base)/3 mL nebulization WHEEZING soln cetirizine 1 mg/mL oral solution 10 mg (10 mL) feeding tube 1600 09/30/23 09/03/24 Rx ALLERGIES #480 mL lorazepam 2 mg/mL oral concentrate 2 mg feeding tube DAILY PRN 01/04/24 01/03/24 History (Lorazepam Intensol) agitation food supplemt, lactose-reduced 1,000 ml PO QDAY 04/04/24 09/03/24 History 0.04 gram-1.05 kcal/mL oral liquid (Ensure Original) guaifenesin 200 mg/5 mL oral liquid 2 mg feeding tube 0830 04/04/24 09/03/24 History COUGH/CONGESTION oxygen concentrator #1 ea 09/29/24 Unknown Rx montelukast 4 mg oral granules in 4 mg PO DAILY ASTHMA #90 ea 10/18/24 Unknown Rx packet (Singulair) plecanatide 3 mg tablet 3 mg G-tube QODAY BOWELS 12/20/24 Unknown History testosterone (AndroGel) 1 pump topical QODAY 12/20/24 Unknown History Allergy/AdvReac Type Severity Reaction Status Date / Time chlorhexidine Allergy Rash Verified 02/16/25 07:02 cisapride monohydrate (From Allergy Rash Verified 02/16/25 07:02 Propulsid) house dust Allergy NEEDS Verified 02/16/25 07:02 FOLLOW-UP metronidazole (From Flagyl) Allergy Rash Verified 02/16/25 07:02 codeine AdvReac hallucinati Verified 02/16/25 07:02 ons morphine AdvReac Hallucinati Verified 02/16/25 07:02 ons Family History Mother Hepatitis C Hypertension HIV disease CVA (cerebral vascular accident) Liver disease Father H/O heart artery stent CAD (coronary artery disease) Atrial fibrillation Hypertension Esophageal cancer Grandmother Asthma Diverticulitis Diabetes Myocardial infarction Heart disease Surgical History History of eye surgery Heel cord lengthening History of soft tissue release History of open reduction and internal fixation (ORIF) procedure History of gastrostomy tube placement Status post insertion of intrathecal baclofen pump History of colostomy Colostomy in place Social History household members: family housing: house current occupational status: disabled Smoking Status: Never smoker alcohol intake: never substance use type: does not use caffeine: No ROS ROS Narrative obtained from his mother as patient is nonverbal Constitutional Constitutional: Denies chills, fever(s) or malaise Eyes Eyes: Denies change in vision ENT HEENT: Denies dysphagia, headache(s) or sore throat Cardiovascular Cardiovascular: Reports palpitations and rapid heart rate; Denies chest pain, dyspnea on exertion or edema Respiratory/Chest Respiratory/Chest: Reports excessive phlegm production; Denies cough, dyspnea, productive cough, shortness of breath at rest or shortness of breath with exertion Gastrointestinal Gastrointestinal: Reports other Details: abdominal distension ; Denies abdominal pain, constipation, diarrhea, nausea or vomiting Genitourinary Genitourinary: Denies difficulty urinating or dysuria Patient's Goals Of Care . What would you like to achieve or improve as a result of your hospital stay?: to get better and return home Vital Signs Vital Signs Vital Signs: 02/16/25 06:50 02/16/25 06:58 02/16/25 07:05 Temperature 99.3 F H 99.3 F H Temperature Source Axillary Axillary Pulse Rate 146 H 156 H Respiratory Rate 35 H 32 H Blood Pressure 153/114 H 153/114 H Blood Pressure Mean 127 127 Pulse Ox 93 93 Oxygen Delivery Method Trach Collar Trach Collar Trach Collar Oxygen Flow Rate (L/min) 4 4 02/16/25 07:49 02/16/25 08:00 02/16/25 09:00 Temperature 98.5 F 98.3 F 97.4 F L Temperature Source Temporal Temporal Temporal Pulse Rate 122 H 113 H 103 H Respiratory Rate 19 H 15 20 H Blood Pressure 121/83 H 108/74 132/91 H Blood Pressure Mean 95 85 104 Pulse Ox 92 97 95 Oxygen Delivery Method Trach Collar Trach Collar Trach Collar Oxygen Flow Rate (L/min) 15 Weight Weight: 193 lb 5.526 oz Body Mass Index (BMI) 37.8 Physical Exam Const alert Constitutional Narrative: nonverbal, spastic quadriplegia from cerebral palsy HEENT normocephalic HEENT Narrative: on vent via trach Eyes EOMs intact bilaterally Neck Neck Narrative: tracheostomy in place Resp Resp Narrative: moderately diminished breath sounds bibasally, few bilateral crackles. No wheezes. On ventilator via tracheostomy Cardio regular rhythm, S1 normal heart sound, S2 normal heart sound and no murmurs Cardio Narrative: sinus tachycardia GI GI Narrative: abdomen moderately distended, nontender, no organomegaly. Has PEG tube in situ and colostomy bag. Extremity Extremity Narrative: has chronic spastic quadriplegia of all extremities. Neuro Neuro Narrative: nonverbal, cerebral palsy with spastic quadriplegia Results Lab / Micro Data 02/16/25 07:12 02/16/25 07:12 Labs: Laboratory Results - last 24 hr 02/16/25 07:12: WBC 16.3 H, RBC 4.41 L, Hgb 11.9 L, Hct 37.3 L, MCV 84.6, MCH 27.0, MCHC 31.9 L, RDW Std Deviation 55.3 H, RDW Coeff of Emilee 17.9 H, Plt Count 474 H, MPV 9.6, Immature Gran % (Auto) 0.400, Neut % (Auto) 63.3, Lymph % (Auto) 28.4, Shackelford % (Auto) 6.6, Eos % (Auto) 1.0, Baso % (Auto) 0.3, Absolute Neuts (auto) 10.3 H, Absolute Lymphs (auto) 4.62 H, Nucleated RBC % 0, PT 13.5, INR 1.0, APTT 30.1, Sodium 137, Potassium 4.3, Chloride 92 L, Carbon Dioxide 25.7, Anion Gap 20 H, BUN 12, Creatinine 0.55 L, Estim Creat Clear Calc 159.41, Est GFR (MDRD) Non-Af 126, BUN/Creatinine Ratio 22.0 H, Glucose 144 H, Lactic Acid 6.9 H*, Calcium 9.8, Total Bilirubin 0.27, AST 18, ALT 20, Alkaline Phosphatase 229 H, Total Protein 9.7 H, Albumin 4.3, Globulin 5.4 H, Albumin/Globulin Ratio 0.8 L 02/16/25 07:32: Urine Color Yellow, Urine Clarity Clear, Urine pH 6.0, Ur Specific Olla 1.015, Urine Protein 15 H, Urine Glucose (UA) Normal, Urine Ketones Negative, Urine Occult Blood Negative, Urine Nitrite Negative, Urine Bilirubin Negative, Urine Urobilinogen Normal, Ur Leukocyte Esterase Negative, Urine RBC 0 SEEN, Urine WBC 0 SEEN, Ur Squamous Epith Cells 0 SEEN, Urine Bacteria 0 SEEN, Urine Mucus 0 SEEN Micro: Microbiology 02/16/25 07:22 Mucosa - Nose SARS-CoV-2, Influenza & RSV (PCR) - Final ABG Data ABG results: ABG 02/16/25 02/16/25 09:13 09:19 Specimen Type ART Cancelled Sample Site R Brach Cancelled pH 7.38 Cancelled Bicarbonate Actual 32.1 H Cancelled Total CO2 34 Cancelled Base Excess 7 H Cancelled O2 Saturation 57 L Cancelled O2 % 15.0 Cancelled ABG pCO2 54.9 H Cancelled ABG pO2 31 L* Cancelled Tutu Test Cancelled Respiration Rate 2 Cancelled O2 Delivery Device Home Vent Cancelled Liter Flow Cancelled Minute Volume Cancelled Vent Mode SIMV Cancelled Inspiratory Time Cancelled Expiratory Time Cancelled Tidal Volume 350.0 Cancelled Mean Airway Pressure Cancelled POC PEEP 8 Cancelled Peak Inspir Pressure Cancelled POC Pressure Suppt Cancelled Pressure Control Cancelled Pressure High Cancelled Pressure Low Cancelled Time High Cancelled Time Low Cancelled EPAP Cancelled IPAP Cancelled Blood Gas Comments Cancelled Crit Call To/Read Back Yes Cancelled Blood Gas Notified Whom Cancelled Blood Gas Notified Time Cancelled Clinical Comments Cancelled Imaging Radiology Impression Abdomen/Pelvis CT 02/16/25 07:00 IMPRESSION: 1. No evidence of bowel obstruction. 2. Redemonstrated parastomal herniation of bowel. 3. Unchanged partial left colectomy with chronic wall thickening and distention of the rectal pouch. 4. Percutaneous enteric gastric tube extends to the stomach. 5. Additional findings as discussed in the body of the report. Reading Location: [facility] Chest X-Ray 02/16/25 08:15 IMPRESSION: Reduced lung volumes bilaterally likely secondary to patient body habitus. No radiographic evidence for focal lung consolidation. Reading Location: [facility] Assessment & Plan Assessment/Plan (1) Chronic hypoxemic respiratory failure: (2) Septic shock: PLAN: Plan #Septic shock this is per lactic acid criteria. Etiology is unclear. admitted with a complaint of tachycardia. He also had increased sputum production CXR showed no evidence of focal lung consolidation EKG shoewd sinus tachycardia CT abdomen and pelvis showed no evidence of small bowel obstruction and redemonstrated parastomal herniation of bowel with unchanged partial left colectomy with colonic wall thickening and distention of the rectal pouch. PEG tube extending to the stomach. Hydrate with IV fluids per septic shock protocol. Blood and urine cultures as well as sputum culture obtained. Started on broad-spectrum IV vancomycin and Zosyn Consult critical care. Trend lactic acid. #Chronic respiratory failure due to cerebral palsy with spastic quadriplegia Is vent dependent via tracheostomy. His vent settings are tidal volume 350 with respiratory rate of 10 and PEEP of 8 Critical care consulted. Respiratory therapist on board. Breathing treatments bronchodilators. Titrate oxygen to maintain saturation above 90%. #History of seizure disorder: On phenobarbital, gabapentin and Ativan #Cerebral palsy with spastic quadriplegia: On baclofen and gabapentin as well as Ativan #Chronic dysphagia: Has PEG tube in place. On tube feeds with Jevity 1.2 South. DVT prophylaxis: Lovenox CODE STATUS: Full code CODE STATUS discussed with his mother who indicated that patient is full code. Charges/Coding Visit Charges Inpatient E&M: 90986 Init Hosp L3 Procedures Hospitalists Procedures: 75632 Advncd Care Plan 30 Min
--- NOTE | 2025-02-16 11:58 | PCM.RX.CS ---
Consult Antibiotic Management Pharmacy has been consulted to manage selected antibiotic: Vancomycin Type of Intervention Type of Consult: New start Suspected Infection Suspected Infection: Sepsis Prior Doses of Antibiotics Prior Doses of Antibiotics Received/Current Regimen: Vancomycin 1250 mg IV x 1 given 02/16/25 @ 0905, patient is also on piperacillin/tazobactam 3.375 grams Q8H Labs Labs: Sodium 137 mmol/L (135-145) 02/16/25 07:12 Potassium 4.3 mmol/L (3.5-5.1) 02/16/25 07:12 Chloride 92 mmol/L (96-106) L 02/16/25 07:12 Carbon Dioxide 25.7 mmol/L (20.0-29.0) 02/16/25 07:12 Anion Gap 20 (7-18) H 02/16/25 07:12 BUN 12 mg/dL (4-19) 02/16/25 07:12 Creatinine 0.55 mg/dL (0.70-1.20) L 02/16/25 07:12 Est GFR (MDRD) Non-Af 126 (>60) 02/16/25 07:12 BUN/Creatinine Ratio 22.0 RATIO (10-20) H 02/16/25 07:12 Glucose 144 mg/dL (70-99) H 02/16/25 07:12 Microbiology Microbiology: Microbiology 02/16/25 07:22 Mucosa - Nose SARS-CoV-2, Influenza & RSV (PCR) - Final Dosing Weight Weight used for dosin kg Estimated Creatinine Clearance Estimated Creatinine Clearance: ~ 160 Goal Trough Goal Trough: 15-20 mcg/mL Pharmacy Plan for Drug Dosing Pharmacy Plan for Drug Dosing: Vancomycin 1250 mg IV x 1 followed by 1000 mg Q8H Pharmacy Service will continue to monitor and adjust dosing as required. Follow-Up Labs Follow-Up Labs: Trough: Vancomycin Date/Time Labs Ordered Labs to be done on [date and time ordered]: 02/17/25 @ 0828
[2025-02-16] MEDS: Cefepime HCl 2 GM in 0.9% Normal Saline (100mL MB+) 100 ML IV (11:59)
[2025-02-16 12:22] LABS: Reflex Lactate? Y
[2025-02-16] MEDS: Jevity 1.5 1,000 ML 45 ML GT (13:46)
[2025-02-16] MEDS: Lactated Ringers 1,000 ML 125 ML IV (13:46)
--- NOTE | 2025-02-16 13:46 | CON.PCM.CC_ITS ---
HPI Consult Data Date of Consult: 02/16/25 HPI Narrative Reason for Consultation: Septic shock HPI Narrative: 45 M with an extensive past medical history as outlined including cerebral palsy with spastic quadriplegia and chronic respiratory failure, vent dependent (mostly uses at night) via the trach who lives at home with his parents who presented to the ED today due to concern for infection after aide noticed tachycardia and possible increased sputum production. Per mother he was in his baseline state of health yesterday and was doing well. No known sick contacts but they did have family over as well as his usual nursing aides. Patient is nonverbal and history is taken from his mother & detailed chart review. In the ED he was noted to have BP of 110/75, [place] of 100, RR of 20 and temp of 97.9F. WBC 16.3 Lactic acid was 6.9. Urinalysis not suggestive for UTI. CT abdomen and pelvis with chronic findings. CXR with reduced lung volumes bilaterally likely secondary to body habitus & no evidence of focal lung consolidation. Given marked elevation in lactic acid he received sepsis fluid bolus & emp IV Abx before admission to the ICU where critical care consult was requested. [facility] Medical History Acute aspiration pneumonitis Hypogonadism in male Osteoporosis History of aspiration pneumonia Tachycardia Aspiration pneumonia Anxiety GERD (gastroesophageal reflux disease) Non-smoker On home oxygen therapy Pulmonary embolism Seizures Cerebral palsy Chronic respiratory failure with hypoxia Pseudomonas pneumonia Colostomy prolapse Cerebral palsy Acute dyspnea Anemia in chronic illness Upper GI bleeding (04/2020) Thrombocytopenia Pulmonary embolism on left (06/14/19) Iron deficiency anemia Obesity Tracheostomy in place Debility Chronic respiratory failure Edema Nonrheumatic mitral valve prolapse Redundant colon History of seizure disorder Home Medications ?Medication ?Instructions ?Recorded ?Last Taken ?Type phenobarbital 20 mg/5 mL (4 mg/mL) 60 mg G-tube 0830,2 100 SEIZURES 02/19/17 09/03/24 History oral elixir metoclopramide HCl 5 mg/5 mL oral 10 mg feeding tube 0 830,1600,2100 09/16/18 09/03/24 History solution STOMACH Cough Assist 1 dose .Route .MEDSUPPLY ass ist in 12/25/18 09/03/24 History clearing secretions gabapentin 250 mg/5 mL oral 500 mg G-tube 0000,0600,12 00,1800 09/26/19 09/03/24 History solution SEIZURES albuterol sulfate 2.5 mg/3 mL 2.5 mg inhalation Q4H [place] N Sob &/Or 11/27/20 09/03/24 History (0.083 %) solution for nebulization Wheezing cholecalciferol (vitamin D3) 10 15 mcg feeding tube 08 30 SUPPLEMENT 03/24/22 09/03/24 History mcg/mL (400 unit/mL) oral drops acetaminophen 650 mg/20.3 mL oral 650 mg feeding tube 10/24/22 01/04/24 History suspension 0000,0600,1200,1800 PRN PAIN aluminum-mag hydroxide-simethicone 5 ml PO 0000,0600,1 200,1800 PRN 10/24/22 09/03/24 History 200 mg-200 mg-20 mg/5 mL oral susp ANTACID baclofen 20 mg tablet 20 mg feeding tube Q6H MUSCL E 12/10/22 09/03/24 History SPASMS ondansetron 4 mg disintegrating 4 mg PO Q8H PRN NAUSEA /VOMITING 12/13/22 Unknown Rx tablet #30 tabs esomeprazole magnesium 40 mg 40 mg G-tube BID ACID REF LUX 03/23/23 09/03/24 History granules delayed release for susp (Nexium Packet) ipratropium 0.5 mg-albuterol 3 mg 3 ml inhalation Q4H PRN SOB &/OR 03/23/23 09/03/24 History (2.5 mg base)/3 mL nebulization WHEEZING soln cetirizine 1 mg/mL oral solution 10 mg (10 mL) feeding tube 1600 09/30/23 09/03/24 Rx ALLERGIES #480 mL lorazepam 2 mg/mL oral concentrate 2 mg feeding tube D AILY PRN 01/04/24 01/03/24 History (Lorazepam Intensol) agitation food supplemt, lactose-reduced 1,000 ml PO QDAY nutrit ion 04/04/24 09/03/24 History 0.04 gram-1.05 kcal/mL oral liquid (Ensure Original) guaifenesin 200 mg/5 mL oral liquid 2 mg feeding tube 0830 PRN 04/04/24 09/03/24 History COUGH/CONGESTION oxygen concentrator #1 ea 09/29/24 Unknown Rx montelukast 4 mg oral granules in 4 mg PO DAILY ASTHMA #90 ea 10/18/24 Unknown Rx packet (Singulair) plecanatide 3 mg tablet 3 mg G-tube QODAY BOWELS Unknown History testosterone (AndroGel) 1 pump topical QODAY low shyann trone 12/20/24 Unknown History level HOME VENTILATOR - ([facility] 02/16/25 Unknown History INFORMATIONAL USE ONLY) OXYGEN - Supplemental ([facility] 02/16/25 Unknown History INFORMATIONAL USE ONLY) Allergy/AdvReac Type Severity Reaction Status Date / Time chlorhexidine Allergy Rash Verified 02/16/25 07:02 cisapride monohydrate (From Allergy Rash Verified 02/16/25 07:02 Propulsid) house dust Allergy NEEDS Verified 02/16/25 07:02 FOLLOW-UP metronidazole (From Flagyl) Allergy Rash Verified 02/16/25 07:02 codeine AdvReac hallucinati Verified 02/16/25 07:02 ons morphine AdvReac Hallucinati Verified 02/16/25 07:02 ons Family History Mother Hepatitis C Hypertension HIV disease CVA (cerebral vascular accident) Liver disease Father H/O heart artery stent CAD (coronary artery disease) Atrial fibrillation Hypertension Esophageal cancer Grandmother Asthma Diverticulitis Diabetes Myocardial infarction Heart disease Surgical History History of eye surgery Heel cord lengthening History of soft tissue release History of open reduction and internal fixation (ORIF) procedure History of gastrostomy tube placement Status post insertion of intrathecal baclofen pump History of colostomy Colostomy in place Social History household members: family housing: house current occupational status: disabled Smoking Status: Never smoker alcohol intake: never substance use type: does not use caffeine: No ROS Review of Systems ROS Unobtainable: due to mental condition Objective Data Objective Data Vital Signs: Vital Signs Last response 3 Temperature 36.7 C 02/16/25 10:45 Temperature Source Temporal 02/16/25 10:45 Pulse Rate 108 H 02/16/25 13:00 Respiratory Rate 19 H 02/16/25 13:00 Respiratory Effort Non-Labored 02/16/25 11:00 Respiratory Pattern Irregular 02/16/25 11:10 Blood Pressure 107/72 02/16/25 13:00 Blood Pressure Mean 83 02/16/25 13:00 Blood Pressure Source Monitor 02/16/25 13:00 Blood Pressure Position Semi-Fowlers 02/16/25 13:00 Blood Pressure Location Left Forearm 02/16/25 13:00 Pulse Ox 95 02/16/25 13:00 Oxygen Delivery Method Mechanical Ventilator 02/16/25 13:00 Oxygen Flow Rate (L/min) 10 02/16/25 13:00 Fraction of Inspired Oxygen (FIO2) 81 02/16/25 11:10 I&O: I&O Last 24 Hours 3 02/15/25 02/16/25 02/16/25 23:59 11:59 23:59 Intake Total 1305 / 2405 1100 / 2405 Output Total 525 / 525 Balance 1305 / 1880 575 / 1880 I&O: Total Stay 3 02/16/25 06:49 thru 02/16/25 12:40 Intake Total 2405 Output Total 525 Balance 1880 Current Meds Ordered / Administered: Current meds ordered / Administered 3 Generic Name Dose Route Start Last Admin Trade Name Freq PRN Reason Stop Dose Admin Acetaminophen 650 mg 02/16/25 10:58 Acetaminophen 650 Mg/20 Ml Udc GT 0000,0600,1200,1800 PRN PAIN 1-10 Al Hydrox/Mg Hydrox/Simethicone 2.5 ml 02/16/25 10:47 Mag /Aluminum/Simeth Wch Udc 30 Ml Oral.Susp PO 0000,0600,1200,1800 PRN ANTACID Albuterol Sulfate 2.5 mg 02/16/25 10:47 Albuterol 2.5 Mg/3 Ml Vial.Neb. INHALATION Q4H PRN SOB &/OR WHEEZING Albuterol/Ipratropium 3 ml 02/16/25 10:47 Ipratropium/Albuterol Sulfate 3 Ml Ampul.Neb INHALATION Q4H PRN SOB &/OR WHEEZING Baclofen 20 mg 02/16/25 12:00 02/16/25 12:38 Baclofen 10 Mg Tablet PO 20 mg Q6H JOYCE Administration Gabapentin 500 mg 02/16/25 14:00 Gabapentin 250 Mg/5 Ml Solution GT 0000,0600,1200,1800 JOYCE Guaifenesin 10 ml 02/16/25 10:47 Guaifenesin 10 Ml Udc (200mg/10ml) PO 0830 PRN COUGH/CONGESTION Lactated Ringer's 1,000 mls @ 125 mls/hr 02/16/25 09:00 IV 02/16/25 16:59 .Q8H JOYCE Vancomycin IV-PHARMACY TO DOSE 500 mls @ 250 mls/hr 02/16/25 10:47 1 each/ Sodium Chloride IV PRN PRN Rx to Dose Protocol Piperacillin Sod/Tazobactam 50 mls @ 12.5 mls/hr 02/16/25 14:00 Sod 3.375 gm/ Sodium Chloride IV Q8 JOYCE Sodium Chloride 250 mls @ 15 mls/hr 02/16/25 11:01 IV .[id number] PRN Saline Flush Sodium Chloride 250 mls @ 15 mls/hr 02/16/25 11:01 IV .[id number] PRN Additional IVPB Infusion Vancomycin HCl 1,000 mg/ 270 mls @ 250 mls/hr 02/16/25 17:00 Sodium Chloride IV Q8H [facility] Enteral Nutritional Formula 1,000 mls @ 45 mls/hr 02/16/25 13:05 Jevity 1.5 GT .[id number] [facility] Lorazepam 2 mg 02/16/25 10:47 Lorazepam 2 Mg/Ml Bottle GT DAILY PRN AGITATION Metoclopramide HCl 10 mg 02/16/25 16:00 02/16/25 12:38 Metoclopramide 10 Mg/10 Ml Udc GT 10 mg 0830,1600,2100 [facility] Administration Non-Formulary Medication 10 mg 02/16/25 16:00 Cetirizine feeding tube 1600 [facility] Non-Formulary Medication 40 mg 02/16/25 22:00 Esomeprazole Magnesium [Nexium Packet] GT BID JOYCE Non-Formulary Medication 4 mg 02/17/25 10:00 Montelukast [Singulair] PO DAILY JOYCE Non-Formulary Medication 3 mg 02/18/25 10:00 Plecanatide GT QODAY [facility] Non-Formulary Medication 1 pump 02/18/25 10:00 Testosterone [Androgel] TOPICAL QODAY [facility] Ondansetron HCl 4 mg 02/16/25 10:47 Ondansetron Odt 4 Mg Tablet PO Q8H PRN NAUSEA/VOMITING Phenobarbital 60 mg 02/16/25 21:00 02/16/25 12:00 Phenobarbital 20 Mg/5 Ml Udc GT 60 mg 0830,2100 [facility] Administration Sodium Chloride 10 - 40 ml 02/16/25 11:01 0.9% Saline Lock 10 Ml Syringe IV UD PRN Port-a-Cath (VAD)/R Port Flush Sodium Chloride 10 - 40 ml 02/16/25 11:01 0.9 % Nacl (Sterile) Posiflush 10 Ml IV UD PRN Port access or dressing change Vancomycin Protocol 1 lab 02/17/25 07:30 Vancomycin Trough/Random Due MC 02/17/25 09:30 DAILY [facility] Lab / Micro Data 02/16/25 07:12 02/16/25 07:12 Labs: Laboratory Results - last 24 hr 02/16/25 07:12: WBC 16.3 H, RBC 4.41 L, Hgb 11.9 L, Hct 37.3 L, MCV 84.6, MCH 27.0, MCHC 31.9 L, RDW Std Deviation 55.3 H, RDW Coeff of Emilee 17.9 H, Plt Count 474 H, MPV 9.6, Immature Gran % (Auto) 0.400, Neut % (Auto) 63.3, Lymph % (Auto) 28.4, [place] % (Auto) 6.6, Eos % (Auto) 1.0, Baso % (Auto) 0.3, Absolute Neuts (auto) 10.3 H, Absolute Lymphs (auto) 4.62 H, Nucleated RBC % 0, PT 13.5, INR 1.0, APTT 30.1, Sodium 137, Potassium 4.3, Chloride 92 L, Carbon Dioxide 25.7, A nion Gap 20 H, BUN 12, Creatinine 0.55 L, Estim Creat Clear Calc 159.41, Est GFR (MDRD) Non-Af 126, BUN/Creatinine Ratio 22.0 H, Glucose 144 H, Lactic Acid 6.9 H*, Calcium 9.8, Total Bilirubin 0.27, AST 18, ALT 20, Alkaline Phosphatase 229 H, Total Protein 9.7 H, Albumin 4.3, Globulin 5.4 H, Albumin/Globulin Ratio 0.8 L 02/16/25 07:32: Urine Color Yellow, Urine Clarity Clear, Urine pH 6.0, Ur Specific [place] 1.015, Urine Protein 15 H, Urine Glucose (UA) Normal, Urine Ketones Negative, Urine Occult Blood Negative, Urine Nitrite Negative, Urine Bilirubin Negative, Urine Urobilinogen Normal, Ur Leukocyte Esterase Negative, Urine RBC 0 SEEN, Urine WBC 0 SEEN, Ur Squamous Epith Cells 0 SEEN, Urine Bacteria 0 SEEN, Urine Mucus 0 SEEN 02/16/25 13:10: Lactic Acid 1.3 Micro: Microbiology 02/16/25 07:22 Mucosa - Nose SARS-CoV-2, Influenza & RSV (PCR) - Final ABG Data ABG results: ABG 02/16/25 02/16/25 09:13 09:19 Specimen Type ART Cancelled Sample Site R Brach Cancelled pH 7.38 Cancelled Bicarbonate Actual 32.1 H Cancelled Total CO2 34 Cancelled Base Excess 7 H Cancelled O2 Saturation 57 L Cancelled O2 % 15.0 Cancelled ABG pCO2 54.9 H Cancelled ABG pO2 31 L* Cancelled Tutu Test Cancelled Respiration Rate 2 Cancelled O2 Delivery Device Home Vent Cancelled Liter Flow Cancelled Minute Volume Cancelled Vent Mode SIMV Cancelled Inspiratory Time Cancelled Expiratory Time Cancelled Tidal Volume 350.0 Cancelled Mean Airway Pressure Cancelled POC PEEP 8 Cancelled Peak Inspir Pressure Cancelled POC Pressure Suppt Cancelled Pressure Control Cancelled Pressure High Cancelled Pressure Low Cancelled Time High Cancelled Time Low Cancelled EPAP Cancelled IPAP Cancelled Blood Gas Comments Cancelled Crit Call To/Read Back Yes Cancelled Blood Gas Notified Whom Dr. John Cancelled Blood Gas Notified Time Cancelled Clinical Comments Cancelled Imaging Radiology Impression Abdomen/Pelvis CT 02/16/25 07:00 IMPRESSION: 1. No evidence of bowel obstruction. 2. Redemonstrated parastomal herniation of bowel. 3. Unchanged partial left colectomy with chronic wall thickening and distention of the rectal pouch. 4. Percutaneous enteric gastric tube extends to the stomach. 5. Additional findings as discussed in the body of the report. Reading Location: [facility] Chest X-Ray 02/16/25 08:15 IMPRESSION: Reduced lung volumes bilaterally likely secondary to patient body habitus. No radiographic evidence for focal lung consolidation. Reading Location: [id number] Assessment and Plan . Assessment and plan: 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, home ventilator via trach HEENT: anicteric Sclera; protruding tongue; +[place]iley (#6) midline to vent Cardiovascular: tachy; +S1/S2; trace chronic edema Respiratory: diminished; no crackles, wheezes, or rhonchi Abdominal: Non-tender; Non distended; hypoBS x 4; +PEG Extremities: Warm; No clubbing, cyanosis; capillary refill < 2 sec Neurological: nonverbal, minimally responsive at this time, no new focal deficit A/P: #Acute on chronic respiratory failure #SIRS vs severe sepsis #Lactic acidosis #Cerebral palsy -Cont home vent support for now due to increased metabolic demands -SP sepsis fluid bolus; start NEpi if needed to keep MAP > 65; lactate markedly improved on F/U -Emp IV Abx- vanc/Zosyn; F/U Cx; COVID neg; check Flu/RSV -Cont gentle IVF; strict I/Os NPO --> home TFs OK later today LMWH, PPI Guarded prognosis; updated mother who is bedside Critical Care Time: 60 min The entirety of this encounter was done via Telemedicine
[2025-02-16] MEDS: Piperacil/Tazobactam 3.375 GM in 0.9% Normal Saline (50mL MB+) 50 ML IV ×2 (14:04→21:08)
[2025-02-16] MEDS: 0.9% Normal Saline (1000mL) 1,000 ML 125 ML IV ×2 (14:17→22:00)
[2025-02-16] MEDS: GABAPENTIN 250 MG/5 ML SOLUTION 500 MG GT ×3 (14:22→23:45)
--- NOTE | 2025-02-16 15:06 | CPS ---
cancelled Covid,flu,rsv pcr per RN. this test was done, was negative @6028.
[2025-02-16] MEDS: Acetaminophen 650 MG/20 ML UDC GT ×2 (18:01→23:48)
[2025-02-16] MEDS: LORazepam 2 MG/ML Bottle GT (18:03)
[2025-02-16] MEDS: Vancomycin HCl 1,000 MG in 0.9% Normal Saline (250mL Bag) 250 ML 250 MG IV (18:11)
[2025-02-16] MEDS: ESOMEPRAZOLE MAGNESIUM 40 MG SUSPDR.PKT GT (20:44)
[2025-02-17] VITALS (24 sets, daily range): BP systolic 97–151; BP diastolic 68–110; PULSE 87–111; RESP 14–28; TEMP 36.9–38.1; O2SAT 94–100; BMI 39.1
[2025-02-17] MEDS: Vancomycin HCl 1,000 MG in 0.9% Normal Saline (250mL Bag) 250 ML 250 MG IV (01:10)
[2025-02-17] MEDS: 0.9% Saline Lock 10 ML Syringe IV (03:17)
[2025-02-17 03:25] LABS: Hematocrit 27.6 % (40-54); Hemoglobin 8.5 g/dL (13.0-16.5); Immature Granulocytes Count 0.020 X10^3/uL (0.0-0.0); Mean Corp Hgb Conc 30.8 g/dL (32-36); Mean Corpuscular Volume 85.4 fL (80-94); Mean Platelet Vol. 9.4 fl (6.2-12.0); NRBC Flagged by Analyzer 0 % (0-5); Platelet Count 233 K/mm3 (150-450); RBC Distribution Width CV 18.4 % (11.6-14.6); RBC Distribution Width SD 57.9 fl (35.1-43.9); Red Blood Count 3.23 M/mm3 (4.6-6.2); White Blood Count 7.3 K/mm3 (4.4-11.0)
[2025-02-17 04:05] LABS: BUN 10 mg/dL (4-19); BUN/Creat Ratio 27.5 RATIO (10-20); Calcium,Total 7.1 mg/dL (7.6-11.0); Carbon Dioxide 23.0 mmol/L (20.0-29.0); Estimated Creatinine Clearance 241.15 ml/min (50-250); Glucose 104 mg/dL (70-99)
[2025-02-17 04:08] LABS: Anion Gap 9 (7-18); Chloride 107 mmol/L (96-106); Potassium 3.2 mmol/L (3.5-5.1)
[2025-02-17] MEDS: GABAPENTIN 250 MG/5 ML SOLUTION 500 MG GT ×4 (05:02→23:29)
[2025-02-17] MEDS: Piperacil/Tazobactam 3.375 GM in 0.9% Normal Saline (50mL MB+) 50 ML IV ×3 (05:03→21:03)
--- NOTE | 2025-02-17 06:53 | PCM.PN.HOSP ---
Reason for Visit Chief Complaint: tachycardia Subjective Subjective Patient does seem to be doing better today. Heart rates are better. Parents feel like he is looking better. Objective Data Objective Data Vital Signs: Vital Signs Temp Pulse Resp BP Pulse Ox O2 Del Method O2 Flow Rate 99.1 F 101 H 26 H 122/81 H 94 Mechanical Ventilator 8 02/17/25 05:00 02/17/25 06:00 02/17/25 06:00 02/17/25 06:00 02/17/25 06:00 02/17/25 06:00 02/17/25 06:00 FiO2 81 02/16/25 11:10 Oxygen Flow Rate (L/min) 8 Oxygen Delivery Method Mechanical Ventilator Weight: 90.4 kg Body Mass Index (BMI) 39.1 Intake & Output: Intake and Output for Last 24 Hours 02/15/25 02/16/25 02/17/25 23:59 23:59 23:59 Intake Total 5309.58 / 5359.58 1560 / 1560 Output Total 1700 / 1700 700 / 700 Balance 3609.58 / 3659.58 860 / 860 Lab / Micro Data 02/17/25 03:15 02/17/25 03:15 Labs: Laboratory Results - last 24 hr 02/16/25 07:12: WBC 16.3 H, RBC 4.41 L, Hgb 11.9 L, Hct 37.3 L, MCV 84.6, MCH 27.0, MCHC 31.9 L, RDW Std Deviation 55.3 H, RDW Coeff of Emilee 17.9 H, Plt Count 474 H, MPV 9.6, Immature Gran % (Auto) 0.400, Neut % (Auto) 63.3, Lymph % (Auto) 28.4, [place] % (Auto) 6.6, Eos % (Auto) 1.0, Baso % (Auto) 0.3, Absolute Neuts (auto) 10.3 H, Absolute Lymphs (auto) 4.62 H, Nucleated RBC % 0, PT 13.5, INR 1.0, APTT 30.1, Sodium 137, Potassium 4.3, Chloride 92 L, Carbon Dioxide 25.7, Anion Gap 20 H, BUN 12, Creatinine 0.55 L, Estim Creat Clear Calc 159.41, Est GFR (MDRD) Non-Af 126, BUN/Creatinine Ratio 22.0 H, Glucose 144 H, Lactic Acid 6.9 H*, Calcium 9.8, Total Bilirubin 0.27, AST 18, ALT 20, Alkaline Phosphatase 229 H, Total Protein 9.7 H, Albumin 4.3, Globulin 5.4 H, Albumin/Globulin Ratio 0.8 L 02/16/25 07:32: Urine Color Yellow, Urine Clarity Clear, Urine pH 6.0, Ur Specific [place] 1.015, Urine Protein 15 H, Urine Glucose (UA) Normal, Urine Ketones Negative, Urine Occult Blood Negative, Urine Nitrite Negative, Urine Bilirubin Negative, Urine Urobilinogen Normal, Ur Leukocyte Esterase Negative, Urine RBC 0 SEEN, Urine WBC 0 SEEN, Ur Squamous Epith Cells 0 SEEN, Urine Bacteria 0 SEEN, Urine Mucus 0 SEEN 02/16/25 13:10: Lactic Acid 1.3 02/17/25 03:15: WBC 7.3, RBC 3.23 L, Hgb 8.5 L, Hct 27.6 L, MCV 85.4, MCH 26.3 L, MCHC 30.8 L, RDW Std Deviation 57.9 H, RDW Coeff of [place] 18.4 H, Plt Count 233, MPV 9.4, Immature Gran % (Auto) 0.300, Neut % (Auto) 65.6, Lymph % (Auto) 23.6, [place] % (Auto) 9.7, Eos % (Auto) 0.7, Baso % (Auto) 0.1, Absolute Neuts (auto) 4.8, Absolute Lymphs (auto) 1.73, Nucleated RBC % 0, Sodium 139, Potassium 3.2 L, Chloride 107 H, Carbon Dioxide 23.0, Anion Gap 9, BUN 10, Creatinine 0.36 L, Estim Creat Clear Calc 241.15, Est GFR (MDRD) Non-Af 144, BUN/Creatinine Ratio 27.5 H, Glucose 104 H, Calcium 7.1 L Micro: Microbiology 02/16/25 07:22 Mucosa - Nose SARS-CoV-2, Influenza & RSV (PCR) - Final ABG Data ABG results: ABG 02/16/25 02/16/25 09:13 09:19 Specimen Type ART Cancelled Sample Site R Brach Cancelled pH 7.38 Cancelled Bicarbonate Actual 32.1 H Cancelled Total CO2 34 Cancelled Base Excess 7 H Cancelled O2 Saturation 57 L Cancelled O2 % 15.0 Cancelled ABG pCO2 54.9 H Cancelled ABG pO2 31 L* Cancelled Tutu Test Cancelled Respiration Rate 2 Cancelled O2 Delivery Device Home Vent Cancelled Liter Flow Cancelled Minute Volume Cancelled Vent Mode SIMV Cancelled Inspiratory Time Cancelled Expiratory Time Cancelled Tidal Volume 350.0 Cancelled Mean Airway Pressure Cancelled POC PEEP 8 Cancelled Peak Inspir Pressure Cancelled POC Pressure Suppt Cancelled Pressure Control Cancelled Pressure High Cancelled Pressure Low Cancelled Time High Cancelled Time Low Cancelled EPAP Cancelled IPAP Cancelled Blood Gas Comments Cancelled Crit Call To/Read Back Yes Cancelled Blood Gas Notified Whom Dr. John Cancelled Blood Gas Notified Time Cancelled Clinical Comments Cancelled Radiography Diagnostic Testing: Radiology Impression Abdomen/Pelvis CT 02/16/25 07:00 IMPRESSION: 1. No evidence of bowel obstruction. 2. Redemonstrated parastomal herniation of bowel. 3. Unchanged partial left colectomy with chronic wall thickening and distention of the rectal pouch. 4. Percutaneous enteric gastric tube extends to the stomach. 5. Additional findings as discussed in the body of the report. Reading Location: [facility] Chest X-Ray 02/16/25 08:15 IMPRESSION: Reduced lung volumes bilaterally likely secondary to patient body habitus. No radiographic evidence for focal lung consolidation. Reading Location: [facility] Physical Exam Const no apparent distress Constitutional Narrative: Middle-aged, white male, lying in bed, eyes are closed, family at bedside, nursing at bedside HEENT head/scalp atraumatic and moist oral mucous membranes Head and Scalp: normocephalic Eyes conjunctivae normal Resp normal respiratory effort, no retractions, no use of accessory muscles and clear to auscultation bilaterally Resp Narrative: Scattered rhonchi Auscultation: rhonchi; Negative for crackles or wheezes Cardio regular rate, regular rhythm, S1 normal heart sound, S2 normal heart sound, no murmurs, no rub, no gallops and no clicks GI normal to inspection, nondistended, normoactive bowel sounds, soft to palpation and non-tender GI Narrative: Good ostomy output Extremity Extremity Narrative: Chronic edema, no cyanosis or clubbing Neuro Neuro Narrative: Patient with multiple contractures at baseline from CP, patient nonverbal at baseline Psych Psych Narrative: Call and does not appear to be agitated Assessment & Plan Assessment/Plan (1) Sepsis: (2) Acute on chronic hypoxic respiratory failure: (3) Hypokalemia: (4) Lactic acidosis: (5) Leukocytosis: (6) Acute dehydration: PLAN: Plan Sepsis secondary to suspected pneumonia - Patient meets SIRS criteria with suspected source and lactic acidosis - Endorgan damage present and severe lactic acidosis at 6.8 on presentation - Patient responded to IV fluids and did not require pressors - Continue broad-spectrum antibiotics as we await culture results - Clinically seems to be improving with lessening oxygen requirements and improved hemodynamics Acute on chronic hypoxic respiratory failure secondary to suspected vent associated pneumonia -Present on admission - Patient has vent at home but typically on trach mask during the day - Continue increased vent support with increased metabolic demands and tracheal secretions above baseline - Continue respiratory care per orders with suctioning as needed - Continue nebulizers - Continue guaifenesin - ABG done on admission showed marked hypoxemia with a pO2 of 31 Hypokalemia - Potassium 3.2 - Replace via PEG and recheck in a.m. - check a.m. magnesium level Lactic acidosis - Resolved Chronic anemia-normocytic - Stable - Repeat CBC in a.m. and monitor for stability Seizure disorder - Continue home gabapentin - Continue home phenobarbital Chronic constipation - Continue home medication - As needed senna added Testosterone deficiency Can continue home testosterone if family can supply Gastroparesis - Continue home Reglan Allergies - Continue home Singulair - continue cetirizine GERD/history of upper GI bleed due to gastric ulcers and esophagitis - Continue home PPI Cerebral palsy with spastic quadriplegia - Continue medications - Continue tube feeds via PEG tube - Patient tolerating well at this time DVT prophylaxis - Continue enoxaparin CODE STATUS - Full code Charges/Coding Visit Charges Inpatient E&M: 98925 Subs Hosp L2
[2025-02-17] MEDS: Potassium Chloride Oral Soln 20 MEQ/15 ML UDC 40 MEQ GT (08:32)
[2025-02-17] MEDS: MONTELUKAST 4 MG PO (08:34)
[2025-02-17] MEDS: ESOMEPRAZOLE MAGNESIUM 40 MG SUSPDR.PKT GT ×2 (08:36→21:00)
[2025-02-17 09:19] LABS: Vancomycin, Trough Level 21.0 ug/mL (5.0-15.0)
--- NOTE | 2025-02-17 10:19 | PCM.RX.CS ---
Consult Antibiotic Management Pharmacy has been consulted to manage selected antibiotic: Vancomycin Type of Intervention Type of Consult: Follow-up Suspected Infection Suspected Infection: Sepsis Prior Doses of Antibiotics Prior Doses of Antibiotics Received/Current Regimen: X3 (x1 LD, x2 MD) Labs Labs: Sodium 139 mmol/L (135-145) 02/17/25 03:15 Potassium 3.2 mmol/L (3.5-5.1) L 02/17/25 03:15 Chloride 107 mmol/L (96-106) H 02/17/25 03:15 Carbon Dioxide 23.0 mmol/L (20.0-29.0) 02/17/25 03:15 Anion Gap 9 (7-18) 02/17/25 03:15 BUN 10 mg/dL (4-19) 02/17/25 03:15 Creatinine 0.36 mg/dL (0.70-1.20) L 02/17/25 03:15 Est GFR (MDRD) Non-Af 144 (>60) 02/17/25 03:15 BUN/Creatinine Ratio 27.5 RATIO (10-20) H 02/17/25 03:15 Glucose 104 mg/dL (70-99) H 02/17/25 03:15 Vancomycin Trough 21.0 ug/mL (5.0-15.0) H 02/17/25 08:45 Microbiology Microbiology: Microbiology 02/16/25 07:22 Mucosa - Nose SARS-CoV-2, Influenza & RSV (PCR) - Final Dosing Weight Weight used for dosin kg Estimated Creatinine Clearance Estimated Creatinine Clearance: 241 Goal Trough Goal Trough: 15-20 mcg/mL Pharmacy Plan for Drug Dosing Pharmacy Plan for Drug Dosing: Pharmacy Service will continue to monitor and adjust dosing as required. VANCOMYCIN LEVEL RECEIVED Current Vancomycin Dose: 1000 mg Q8H Number of Doses Received: 3 (x1 LD, x2 MD) Vancomycin Level: 21 Hours Since Last Dose: 7.5 Renal Function: SCr: 0.36, CrCl: 241 Renal Function Trend: Improving Vancomycin Plan/Comments: Decreasing dose to 750 mg Q8H with first dose 02/17 @ 1200 due to supertherapeutic trough level today. Pending Level: 02/18/25 @ 1130 Date/Time Labs Ordered Labs to be done on [date and time ordered]: 02/18/25 @ 1130
--- NOTE | 2025-02-17 10:44 | PN.CC_ITS ---
Objective Data Objective Data Vital Signs: Vital Signs Last response 3 Temperature 37.3 C 02/17/25 05:00 Temperature Source Axillary 02/17/25 05:00 Pulse Rate 92 02/17/25 09:00 Pulse Strength Weak (1+) 02/17/25 09:07 Respiratory Rate 20 H 02/17/25 09:00 Respiratory Effort Mechanically Ventilated 02/17/25 08:00 Respiratory Pattern Tachypnea 02/17/25 08:00 Blood Pressure 128/94 H 02/17/25 09:00 Blood Pressure Mean 105 02/17/25 09:00 Blood Pressure Source Monitor 02/17/25 09:00 Blood Pressure Position Supine 02/17/25 09:00 Blood Pressure Location Right Arm 02/17/25 09:00 Pulse Ox 95 02/17/25 09:00 Oxygen Delivery Method Mechanical Ventilator 02/17/25 09:00 Oxygen Flow Rate (L/min) 8 02/17/25 09:00 Fraction of Inspired Oxygen (FIO2) 81 02/16/25 11:10 I&O: I&O Last 24 Hours 3 02/16/25 02/16/25 02/17/25 11:59 23:59 11:59 Intake Total 1305 / 5359.58 4004.58 / 5359.58 1730 / 1730 Output Total 1700 / 1700 700 / 700 Balance 1305 / 3659.58 2304.58 / 3659.58 1030 / 1030 I&O: Total Stay 3 02/16/25 06:49 thru 02/17/25 09:09 Intake Total 7039.58 Output Total 2400 Balance 4639.58 Current Meds Ordered / Administered: Current meds ordered / Administered 3 Generic Name Dose Route Start Last Admin Trade Name Freq PRN Reason Stop Dose Admin Acetaminophen 650 mg 02/16/25 10:58 02/16/25 23:48 Acetaminophen 650 Mg/20 Ml Udc GT 650 mg 0000,0600,1200,1800 PRN Administration PAIN 1-10 Al Hydrox/Mg Hydrox/Simethicone 2.5 ml 02/16/25 10:47 Mag /Aluminum/Simeth Wch Udc 30 Ml Oral.Susp PO 0000,0600,1200,1800 PRN ANTACID Albuterol Sulfate 2.5 mg 02/16/25 10:47 Albuterol 2.5 Mg/3 Ml Vial.Neb. INHALATION Q4H PRN SOB &/OR WHEEZING Albuterol/Ipratropium 3 ml 02/16/25 10:47 Ipratropium/Albuterol Sulfate 3 Ml Ampul.Neb INHALATION Q4H PRN SOB &/OR WHEEZING Baclofen 20 mg 02/16/25 12:00 02/17/25 05:03 Baclofen 10 Mg Tablet PO 20 mg Q6H JOYCE Administration Enoxaparin Sodium 40 mg 02/17/25 06:00 02/17/25 05:02 Enoxaparin 40 Mg/0.4 Ml Syringe SC 40 mg DAILY@0600 JOYCE Administration Esomeprazole Magnesium 40 mg 02/16/25 22:00 02/17/25 08:36 Esomeprazole Magnesium 40 Mg Suspdr.Pkt GT 40 mg BID JOYCE Administration Gabapentin 500 mg 02/16/25 14:00 02/17/25 05:02 Gabapentin 250 Mg/5 Ml Solution GT 500 mg 0000,0600,1200,1800 JOYCE Administration Guaifenesin 10 ml 02/16/25 10:47 Guaifenesin 10 Ml Udc (200mg/10ml) PO 0830 PRN COUGH/CONGESTION Vancomycin IV-PHARMACY TO DOSE 500 mls @ 250 mls/hr 02/16/25 10:47 1 each/ Sodium Chloride IV PRN PRN Rx to Dose Protocol Piperacillin Sod/Tazobactam 50 mls @ 12.5 mls/hr 02/16/25 14:00 02/17/25 09:09 Sod 3.375 gm/ Sodium Chloride IV Infused Q8 JOYCE Infusion Sodium Chloride 250 mls @ 15 mls/hr 02/16/25 11:01 IV .[id number] PRN Saline Flush Sodium Chloride 250 mls @ 15 mls/hr 02/16/25 11:01 IV .[id number] PRN Additional IVPB Infusion Enteral Nutritional Formula 1,000 mls @ 45 mls/hr 02/16/25 13:05 02/16/25 18:21 Jevity 1.5 GT 40 mls/hr .[id number] JOYCE Infusion Vancomycin HCl 750 mg/ Sodium 265 mls @ 250 mls/hr 02/17/25 12:00 Chloride IV Q8H JOYCE Lorazepam 2 mg 02/16/25 10:47 02/16/25 18:03 Lorazepam 2 Mg/Ml Bottle GT 2 mg DAILY PRN Administration AGITATION Metoclopramide HCl 10 mg 02/16/25 16:00 02/17/25 08:34 Metoclopramide 10 Mg/10 Ml Udc GT 10 mg 0830,1600,2100 JOYCE Administration Montelukast Sodium 4 mg 02/17/25 10:00 02/17/25 08:34 Montelukast Sodium 4 Mg Gran.Pack PO 4 mg DAILY JOYCE Administration Non-Formulary Medication 10 mg 02/16/25 16:00 Cetirizine feeding tube 1600 [facility] Non-Formulary Medication 1 pump 02/18/25 10:00 Testosterone [Androgel] TOPICAL QODAY [facility] Ondansetron HCl 4 mg 02/16/25 10:47 Ondansetron Odt 4 Mg Tablet PO Q8H PRN NAUSEA/VOMITING Phenobarbital 60 mg 02/16/25 21:00 02/17/25 08:33 Phenobarbital 20 Mg/5 Ml Udc GT 60 mg 0830,2100 JOYCE Administration Sodium Chloride 10 - 40 ml 02/16/25 11:01 02/17/25 03:17 0.9% Saline Lock 10 Ml Syringe IV 20 ml UD PRN Administration Port-a-Cath (VAD)/R Port Flush Sodium Chloride 10 - 40 ml 02/16/25 11:01 0.9 % Nacl (Sterile) Posiflush 10 Ml IV UD PRN Port access or dressing change Vancomycin Protocol 1 lab 02/18/25 10:30 Vancomycin Trough/Random Due MC 02/18/25 12:30 DAILY [facility] Lab / Micro Data 02/17/25 03:15 02/17/25 03:15 Labs: Laboratory Results - last 24 hr 02/16/25 13:10: Lactic Acid 1.3 02/17/25 03:15: WBC 7.3, RBC 3.23 L, Hgb 8.5 L, Hct 27.6 L, MCV 85.4, MCH 26.3 L , MCHC 30.8 L, RDW Std Deviation 57.9 H, RDW Coeff of Emilee 18.4 H, Plt Count 233, MPV 9.4, Immature Gran % (Auto) 0.300, Neut % (Auto) 65.6, Lymph % (Auto) 23.6, [place] % (Auto) 9.7, Eos % (Auto) 0.7, Baso % (Auto) 0.1, Absolute Neuts (auto) 4.8, Absolute Lymphs (auto) 1.73, Nucleated RBC % 0, Sodium 139, Potassium 3.2 L , Chloride 107 H, Carbon Dioxide 23.0, Anion Gap 9, BUN 10, Creatinine 0.36 L, Estim Creat Clear Calc 241.15, Est GFR (MDRD) Non-Af 144, BUN/Creatinine Ratio 27.5 H, Glucose 104 H, Calcium 7.1 L 02/17/25 08:45: Vancomycin Trough 21.0 H Micro: Microbiology 02/17/25 07:10 Mucosa - Nasopharyngeal Respiratory Panel (PCR) - Final 02/16/25 07:22 Mucosa - Nose SARS-CoV-2, Influenza & RSV (PCR) - Final Assessment and Plan . Assessment and plan: Critical Care Time: The entirety of this encounter was done via Telemedicine Subjective Subjective Pt seen and examined. No acute events overnight. BP remains stable. Fever overnight. Per mother he is still more lethargic than normal but overall looks better. 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, home ventilator via trach HEENT: anicteric Sclera; protruding tongue; +Shiley (#6) midline to vent Cardiovascular: tachy; +S1/S2; trace chronic edema Respiratory: diminished; no crackles, wheezes, or rhonchi Abdominal: Non-tender; Non distended; hypoBS x 4; +PEG Extremities: Warm; No clubbing, cyanosis; capillary refill < 2 sec Neurological: nonverbal, minimally responsive at this time, no new focal deficit A/P: #Acute on chronic respiratory failure #SIRS vs severe sepsis #Lactic acidosis #Cerebral palsy -Cont home vent support for now due to increased metabolic demands & tracheal secretions -SP sepsis fluid bolus; PRN NEpi if needed to keep MAP > 65; lactate normalized following initial resuscitation -Emp IV Abx- vanc/Zosyn; F/U Cx; COVID neg; resp viral panel neg -Cont gentle IVF; strict I/Os NPO --> home TFs OK LMWH, PPI Guarded prognosis; updated mother who is bedside Critical Care Time: 50 min The entirety of this encounter was done via Telemedicine
[2025-02-17] MEDS: Vancomycin HCl 750 MG in 0.9% Normal Saline (250mL Bag) 250 ML 250 MG IV ×2 (11:58→19:46)
[2025-02-17] MEDS: Jevity 1.5 1,000 ML 45 ML GT (13:39)
--- NOTE | 2025-02-17 14:09 | CASEMGMT ---
RE GUADALUPE Assessment: Pt is non-verbal, on mechanical vent at baseline. Face to Face with pt mother for initial transition planning/care coordination assessment. RE GUADALUPE introduced self and role at [facility], pt mother voices understanding and consents to assessment. Care providers, pharmacy, and demographics verified/updated. Strata: 3 Admitting Dx: Sepsis PCP: Senia Specialists: GI, Friend; WHG; Pulmonary, Brown; Beatriz, ENT; [place], Endo; Basali, Pain Management. Preferred Pharmacy: [facility] Insurance: [facility] Prescription Benefit: yes LNOK: LG Matteo/Ray Sprosty Living Arrangements: Pt lives with parents in a 1 level home with no steps to enter. ADLS: Pt has assistance from his parents as well as skilled HHC and home health aides. Pt is active with [facility] and [facility] skilled HHC services, uses [facility] for HH aides and also has private duty independent aides. Pt mom reports that they plan to resume care through the 2 skilled HHC Agencies and decline wanting to review a list of other local in-network skilled HHC Agencies. Transportation: Family has a handicap accessible van with a lift but is requesting ambulance transport through physicians at discharge. DME: [place] G-Tube, feeding pump (gets supplies from [facility]), tracheostomy, colostomy ([facility] gets supplies for this), shower chair, W/C, hospital bed w/double side rails, ramp, cough assist device, ceiling tract, elevator to basement, estefany lift, Eye gaze communication device, and ventilator thru [facility]. Back-up ventilator. Pt uses ventilator @ and occasionally during the day. Goal: Home w/ family and resumption of [facility]: SN, OT, and [facility] through [facility] (SN). Also resumption of aides through [facility] and private duty. Plan: Home with [facility]. Follow for transportation needs. Pt mom states no further concerns/needs at this time. Toño GRIMALDO CM
[2025-02-18] VITALS (25 sets, daily range): BP systolic 88–133; BP diastolic 57–100; PULSE 64–100; RESP 13–22; TEMP 37.1–37.6; O2SAT 92–100; BMI 38.8
[2025-02-18] MEDS: Vancomycin HCl 750 MG in 0.9% Normal Saline (250mL Bag) 250 ML 250 MG IV ×3 (03:22→20:51)
[2025-02-18] MEDS: 0.9% Saline Lock 10 ML Syringe IV (04:19)
[2025-02-18 04:22] LABS: Hematocrit 27.4 % (40-54); Hemoglobin 8.7 g/dL (13.0-16.5); Immature Granulocytes Count 0.020 X10^3/uL (0.0-0.0); Mean Corp Hgb Conc 31.8 g/dL (32-36); Mean Corpuscular Volume 85.1 fL (80-94); Mean Platelet Vol. 9.5 fl (6.2-12.0); NRBC Flagged by Analyzer 0 % (0-5); Platelet Count 224 K/mm3 (150-450); RBC Distribution Width CV 17.9 % (11.6-14.6); RBC Distribution Width SD 55.7 fl (35.1-43.9); Red Blood Count 3.22 M/mm3 (4.6-6.2); White Blood Count 5.9 K/mm3 (4.4-11.0)
[2025-02-18 05:00] LABS: AST(SGOT) 15 U/L (<=37); Alanine Aminotransfer ALT/SGPT 13 U/L (<=46); Albumin, Serum 3.1 g/dL (3.5-5.0); Alkaline Phosphatase 133 U/L (40-129); Anion Gap 8 (7-18); BUN 7 mg/dL (4-19); BUN/Creat Ratio 18.9 RATIO (10-20); Calcium,Total 7.7 mg/dL (7.6-11.0); Carbon Dioxide 24.4 mmol/L (20.0-29.0); Chloride 107 mmol/L (96-106); Estimated Creatinine Clearance 233.57 ml/min (50-250); Globulin 3.9 g/dL (2.2-4.2); Glucose 104 mg/dL (70-99); Magnesium 2.3 mg/dL (1.5-2.2); Potassium 3.4 mmol/L (3.5-5.1)
[2025-02-18] MEDS: GABAPENTIN 250 MG/5 ML SOLUTION 500 MG GT ×4 (05:17→23:58)
[2025-02-18] MEDS: Piperacil/Tazobactam 3.375 GM in 0.9% Normal Saline (50mL MB+) 50 ML IV ×3 (05:29→22:19)
--- NOTE | 2025-02-18 07:59 | PCM.PN.HOSP ---
Reason for Visit Chief Complaint: tachycardia Subjective Subjective Hemodynamics remained stable. Weaning oxygen. Family states interaction is improved and mental status seems to be close to baseline. No issues overnight. Objective Data Objective Data Vital Signs: Vital Signs Temp Pulse Resp BP Pulse Ox O2 Del Method O2 Flow Rate 99.7 F H 76 17 97/65 95 Mechanical Ventilator 8 02/18/25 06:00 02/18/25 07:00 02/18/25 07:00 02/18/25 07:00 02/18/25 07:00 02/18/25 07:00 02/18/25 07:00 FiO2 81 02/16/25 11:10 Oxygen Flow Rate (L/min) 8 Oxygen Delivery Method Mechanical Ventilator Weight: 89.7 kg Body Mass Index (BMI) 38.8 Intake & Output: Intake and Output for Last 24 Hours 02/16/25 02/17/25 02/18/25 23:59 23:59 23:59 Intake Total 5309.58 / 5359.58 3835.75 / 3835.75 435 / 435 Output Total 1700 / 1700 2350 / 2350 600 / 600 Balance 3609.58 / 3659.58 1485.75 / 1485.75 -165 / -165 Lab / Micro Data 02/18/25 04:11 02/18/25 04:11 Labs: Laboratory Results - last 24 hr 02/17/25 08:45: Vancomycin Trough 21.0 H 02/18/25 04:11: WBC 5.9, RBC 3.22 L, Hgb 8.7 L, Hct 27.4 L, MCV 85.1, MCH 27.0, MCHC 31.8 L, RDW Std Deviation 55.7 H, RDW Coeff of Emilee 17.9 H, Plt Count 224, MPV 9.5, Immature Gran % (Auto) 0.300, Neut % (Auto) 57.6, Lymph % (Auto) 25.6, [place] % (Auto) 13.2 H, Eos % (Auto) 3.1, Baso % (Auto) 0.2, Absolute Neuts (auto) 3.4, Absolute Lymphs (auto) 1.50, Nucleated RBC % 0, Sodium 140, Potassium 3.4 L, Chloride 107 H, Carbon Dioxide 24.4, Anion Gap 8, BUN 7, Creatinine 0.38 L, Estim Creat Clear Calc 233.57, Est GFR (MDRD) Non-Af 141, BUN/Creatinine Ratio 18.9, Glucose 104 H, Calcium 7.7, Phosphorus 2.4 L, Magnesium 2.3 H, Total Bilirubin 0.16, AST 15, ALT 13, Alkaline Phosphatase 133 H, Total Protein 7.0, Albumin 3.1 L, Globulin 3.9, Albumin/Globulin Ratio 0.8 L Micro: Microbiology 02/17/25 07:10 Mucosa - Nasopharyngeal Respiratory Panel (PCR) - Final 02/16/25 07:22 Mucosa - Nose SARS-CoV-2, Influenza & RSV (PCR) - Final Physical Exam Const alert and no apparent distress Constitutional Narrative: Middle-aged, white male, lying in bed, eyes are closed, family at bedside HEENT normocephalic, head/scalp atraumatic and moist oral mucous membranes Neck Neck Narrative: tracheostomy in place Resp normal respiratory effort, no retractions, no use of accessory muscles and clear to auscultation bilaterally Resp Narrative: Few scattered rhonchi seems decreased right greater than left Auscultation: rhonchi; Negative for crackles or wheezes Cardio regular rate, regular rhythm, S1 normal heart sound, S2 normal heart sound, no murmurs, no rub, no gallops and no clicks GI normal to inspection, nondistended, normoactive bowel sounds, soft to palpation and non-tender GI Narrative: Good ostomy output, G-tube is clean dry and intact Extremity Extremity Narrative: Chronic edema, no cyanosis or clubbing Neuro Neuro Narrative: Patient with multiple contractures at baseline from CP, patient nonverbal at baseline Psych Psych Narrative: Calm Assessment & Plan Assessment/Plan (1) Sepsis: (2) Acute on chronic hypoxic respiratory failure: (3) Hypokalemia: (4) Lactic acidosis: (5) Leukocytosis: (6) Acute dehydration: PLAN: Plan Sepsis secondary to suspected pneumonia - Patient meets SIRS criteria with suspected source and lactic acidosis -Leukocytosis has resolved - Endorgan damage present and severe lactic acidosis at 6.8 on presentation - Blood and urine cultures are negative - Sputum cultures are pending - Clinically seems to be improving with lessening oxygen requirements and improved hemodynamics - Wean off home ventilator as able Acute on chronic hypoxic respiratory failure secondary to suspected vent associated pneumonia -Present on admission - Patient has vent at home but typically on trach mask during the day - Continue increased vent support with increased metabolic demands and tracheal secretions above baseline - Continue respiratory care per orders with suctioning as needed - Continue nebulizers - Continue guaifenesin - ABG done on admission showed marked hypoxemia with a pO2 of 31 Hypokalemia - Trending up but still low - Replace again today via PEG and recheck in a.m. - Mag level is not low Chronic anemia-normocytic - Stable - Repeat CBC in a.m. and monitor for stability Seizure disorder - Continue home gabapentin - Continue home phenobarbital Chronic constipation - Continue home medication - As needed senna added Testosterone deficiency Can continue home testosterone if family can supply Gastroparesis - Continue home Reglan Allergies - Continue home Singulair - continue cetirizine GERD/history of upper GI bleed due to gastric ulcers and esophagitis - Continue home PPI Cerebral palsy with spastic quadriplegia - Continue medications - Continue tube feeds via PEG tube - Patient tolerating well at this time DVT prophylaxis - Continue enoxaparin CODE STATUS - Full code Charges/Coding Visit Charges Inpatient E&M: 57328 Subs Hosp L2
[2025-02-18] MEDS: Potassium Chloride Oral Soln 20 MEQ/15 ML UDC 40 MEQ PO (08:51)
--- NOTE | 2025-02-18 09:14 | PCM.PN.TICU ---
Objective Data Objective Data Vital Signs: Vital Signs Last response Temperature 37.6 C H 02/18/25 06:00 Temperature Source Oral 02/18/25 06:00 Pulse Rate 76 02/18/25 07:00 Pulse Strength Weak (1+) 02/17/25 09:07 Respiratory Rate 17 02/18/25 07:00 Respiratory Effort Mechanically Ventilated 02/18/25 04:00 Respiratory Pattern Tachypnea 02/18/25 04:00 Blood Pressure 97/65 02/18/25 07:00 Blood Pressure Mean 75 02/18/25 07:00 Blood Pressure Source Monitor 02/18/25 07:00 Blood Pressure Position Semi-Fowlers 02/18/25 07:00 Blood Pressure Location Left Forearm 02/18/25 07:00 Pulse Ox 95 02/18/25 07:00 Oxygen Delivery Method Mechanical Ventilator 02/18/25 07:00 Oxygen Flow Rate (L/min) 8 02/18/25 07:00 Fraction of Inspired Oxygen (FIO2) 81 02/16/25 11:10 I&O: I&O Last 24 Hours 02/17/25 02/17/25 02/18/25 11:59 23:59 11:59 Intake Total 2276 / 3835.75 1559.75 / 3835.75 435 / 435 Output Total 700 / 2350 1650 / 2350 600 / 600 Balance 1576 / 1485.75 -90.25 / 1485.75 -165 / -165 I&O: Total Stay 02/16/25 06:49 thru 02/18/25 05:37 Intake Total 9580.33 Output Total 4650 Balance 4930.33 Current Meds Ordered / Administered: Current meds ordered / Administered Generic Name Dose Route Start Last Admin Trade Name Freq PRN Reason Stop Dose Admin Acetaminophen 650 mg 02/16/25 10:58 02/16/25 23:48 Acetaminophen 650 Mg/20 Ml Udc GT 650 mg 0000,0600,1200,1800 PRN Administration PAIN 1-10 Al Hydrox/Mg Hydrox/Simethicone 2.5 ml 02/16/25 10:47 Mag /Aluminum/Simeth Wch Udc 30 Ml Oral.Susp PO 0000,0600,1200,1800 PRN ANTACID Albuterol Sulfate 2.5 mg 02/16/25 10:47 Albuterol 2.5 Mg/3 Ml Vial.Neb. INHALATION Q4H PRN SOB &/OR WHEEZING Albuterol/Ipratropium 3 ml 02/16/25 10:47 Ipratropium/Albuterol Sulfate 3 Ml Ampul.Neb INHALATION Q4H PRN SOB &/OR WHEEZING Baclofen 20 mg 02/16/25 12:00 02/18/25 05:16 Baclofen 10 Mg Tablet PO 20 mg Q6H JOYCE Administration Enoxaparin Sodium 40 mg 02/17/25 06:00 02/18/25 05:16 Enoxaparin 40 Mg/0.4 Ml Syringe SC 40 mg DAILY@0600 JOYCE Administration Esomeprazole Magnesium 40 mg 02/16/25 22:00 02/17/25 21:00 Esomeprazole Magnesium 40 Mg Suspdr.Pkt GT 40 mg BID JOYCE Administration Gabapentin 500 mg 02/16/25 14:00 02/18/25 05:17 Gabapentin 250 Mg/5 Ml Solution GT 500 mg 0000,0600,1200,1800 JOYCE Administration Guaifenesin 10 ml 02/16/25 10:47 Guaifenesin 10 Ml Udc (200mg/10ml) PO 0830 PRN COUGH/CONGESTION Vancomycin IV-PHARMACY TO DOSE 500 mls @ 250 mls/hr 02/16/25 10:47 1 each/ Sodium Chloride IV PRN PRN Rx to Dose Protocol Piperacillin Sod/Tazobactam 50 mls @ 12.5 mls/hr 02/16/25 14:00 02/18/25 05:29 Sod 3.375 gm/ Sodium Chloride IV 12.5 mls/hr Q8 JOYCE Administration Sodium Chloride 250 mls @ 15 mls/hr 02/16/25 11:01 IV .[id number] PRN Saline Flush Sodium Chloride 250 mls @ 15 mls/hr 02/16/25 11:01 IV .[id number] PRN Additional IVPB Infusion Enteral Nutritional Formula 1,000 mls @ 45 mls/hr 02/16/25 13:05 02/17/25 19:15 Jevity 1.5 GT 40 mls/hr .[id number] JOYCE Infusion Vancomycin HCl 750 mg/ Sodium 265 mls @ 250 mls/hr 02/17/25 12:00 02/18/25 04:39 Chloride IV Infused Q8H JOYCE Infusion Lorazepam 2 mg 02/16/25 10:47 02/16/25 18:03 Lorazepam 2 Mg/Ml Bottle GT 2 mg DAILY PRN Administration AGITATION Metoclopramide HCl 10 mg 02/16/25 16:00 02/17/25 21:00 Metoclopramide 10 Mg/10 Ml Udc GT 10 mg 0830,1600,2100 [facility] Administration Montelukast Sodium 4 mg 02/17/25 10:00 02/17/25 08:34 Montelukast Sodium 4 Mg Gran.Pack PO 4 mg DAILY JOYCE Administration Non-Formulary Medication 1 pump 02/18/25 10:00 Testosterone [Androgel] TOPICAL QODAY [facility] Ondansetron HCl 4 mg 02/16/25 10:47 Ondansetron Odt 4 Mg Tablet PO Q8H PRN NAUSEA/VOMITING Phenobarbital 60 mg 02/16/25 21:00 02/17/25 21:01 Phenobarbital 20 Mg/5 Ml Udc GT 60 mg 0830,2100 JOYCE Administration Senna/Docusate Sodium 2 tablet 02/17/25 17:30 Senna/Docusate Sodium 1 Tablet GT DAILY PRN PRN CONSTIPATION Sodium Chloride 10 - 40 ml 02/16/25 11:01 02/18/25 04:19 0.9% Saline Lock 10 Ml Syringe IV 10 ml UD PRN Administration Port-a-Cath (VAD)/R Port Flush Sodium Chloride 10 - 40 ml 02/16/25 11:01 0.9 % Nacl (Sterile) Posiflush 10 Ml IV UD PRN Port access or dressing change Vancomycin Protocol 1 lab 02/18/25 10:30 Vancomycin Trough/Random Due 02/18/25 12:30 DAILY [facility] Lab / Micro Data 02/18/25 04:11 02/18/25 04:11 Labs: Laboratory Results - last 24 hr 02/17/25 08:45: Vancomycin Trough 21.0 H 02/18/25 04:11: WBC 5.9, RBC 3.22 L, Hgb 8.7 L, Hct 27.4 L, MCV 85.1, MCH 27.0, MCHC 31.8 L, RDW Std Deviation 55.7 H, RDW Coeff of Emilee 17.9 H, Plt Count 224, MPV 9.5, Immature Gran % (Auto) 0.300, Neut % (Auto) 57.6, Lymph % (Auto) 25.6, [place] % (Auto) 13.2 H, Eos % (Auto) 3.1, Baso % (Auto) 0.2, Absolute Neuts (auto) 3.4, Absolute Lymphs (auto) 1.50, Nucleated RBC % 0, Sodium 140, Potassium 3.4 L, Chloride 107 H, Carbon Dioxide 24.4, Anion Gap 8, BUN 7, Creatinine 0.38 L, Estim Creat Clear Calc 233.57, Est GFR (MDRD) Non-Af 141, BUN/Creatinine Ratio 18.9, Glucose 104 H, Calcium 7.7, Phosphorus 2.4 L, Magnesium 2.3 H, Total Bilirubin 0.16, AST 15, ALT 13, Alkaline Phosphatase 133 H, Total Protein 7.0, Albumin 3.1 L, Globulin 3.9, Albumin/Globulin Ratio 0.8 L Micro: Microbiology 02/16/25 07:32 Urine Catheter - Catheter Urine Culture - Final Culture exhibits no growth. 02/17/25 07:10 Mucosa - Nasopharyngeal Respiratory Panel (PCR) - Final Assessment and Plan . Assessment and plan: Critical Care Time: The entirety of this encounter was done via Telemedicine Subjective Subjective Pt seen and examined. No acute events overnight. BP remains stable. Afebrile. Significantly less tracheal secretions. Per mother pt continues to look better & close to baseline. 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, home ventilator via trach HEENT: anicteric Sclera; protruding tongue; +Shiley (#6) midline to vent Cardiovascular: tachy; +S1/S2; trace chronic edema Respiratory: diminished; no crackles, wheezes, or rhonchi Abdominal: Non-tender; Non distended; hypoBS x 4; +PEG Extremities: Warm; No clubbing, cyanosis; capillary refill < 2 sec Neurological: nonverbal, minimally responsive at this time, no new focal deficit A/P: #Acute on chronic respiratory failure #SIRS vs severe sepsis- resolved #?Tracheitis vs PNA #Lactic acidosis- resolved #Cerebral palsy -Cont home vent support for now due to increased metabolic demands & tracheal secretions but can give breaks to trach collar as desired by pt/mother -SP sepsis fluid bolus; PRN NEpi if needed to keep MAP > 65; lactate normalized following initial resuscitation -Emp IV Abx- vanc/Zosyn; F/U Cx; COVID neg; resp viral panel neg --> reasonable to finish 5-7d IV Abx course -SP IVF; strict I/Os TFs LMWH, PPI Guarded prognosis; updated mother who is bedside Critical Care Time: 50 min The entirety of this encounter was done via Telemedicine
[2025-02-18] MEDS: MONTELUKAST 4 MG PO (09:27)
[2025-02-18] MEDS: PLECANATIDE 3 MG TABLET GT (09:27)
[2025-02-18] MEDS: ESOMEPRAZOLE MAGNESIUM 40 MG SUSPDR.PKT GT ×2 (09:34→21:04)
[2025-02-18 13:32] LABS: Vancomycin, Trough Level 18.1 ug/mL (5.0-15.0)
--- NOTE | 2025-02-18 15:26 | PCM.RX.CS ---
Consult Antibiotic Management Pharmacy has been consulted to manage selected antibiotic: Vancomycin Type of Intervention Type of Consult: Follow-up Suspected Infection Suspected Infection: Sepsis Prior Doses of Antibiotics Prior Doses of Antibiotics Received/Current Regimen: 7 doses given at this time. Labs Labs: Sodium 140 mmol/L (135-145) 02/18/25 04:11 Potassium 3.4 mmol/L (3.5-5.1) L 02/18/25 04:11 Chloride 107 mmol/L (96-106) H 02/18/25 04:11 Carbon Dioxide 24.4 mmol/L (20.0-29.0) 02/18/25 04:11 Anion Gap 8 (7-18) 02/18/25 04:11 BUN 7 mg/dL (4-19) 02/18/25 04:11 Creatinine 0.38 mg/dL (0.70-1.20) L 02/18/25 04:11 Est GFR (MDRD) Non-Af 141 (>60) 02/18/25 04:11 BUN/Creatinine Ratio 18.9 RATIO (10-20) 02/18/25 04:11 Glucose 104 mg/dL (70-99) H 02/18/25 04:11 Vancomycin Trough 18.1 ug/mL (5.0-15.0) H 02/18/25 12:30 Microbiology Microbiology: Microbiology 02/16/25 07:40 Blood Culture (Wb) - Port Blood Culture - Preliminary No growth in 48 hours. 02/16/25 07:12 Blood Culture (Wb) - Port Blood Culture - Preliminary No growth in 48 hours. 02/16/25 07:32 Urine Catheter - Catheter Urine Culture - Final Culture exhibits no growth. 02/17/25 07:10 Mucosa - Nasopharyngeal Respiratory Panel (PCR) - Final 02/16/25 07:22 Mucosa - Nose SARS-CoV-2, Influenza & RSV (PCR) - Final Dosing Weight Weight used for dosin kg Estimated Creatinine Clearance Estimated Creatinine Clearance: 233 Goal Trough Goal Trough: 15-20 mcg/mL Pharmacy Plan for Drug Dosing Pharmacy Plan for Drug Dosing: Pharmacy Service will continue to monitor and adjust dosing as required. VANCOMYCIN LEVEL RECEIVED Current Vancomycin Dose: 750 mg Q8H Number of Doses Received: 7 doses received at this time Vancomycin Level: 18.1 Hours Since Last Dose: 9 Renal Function: SCr: 0.38, CrCl: 233 Renal Function Trend: Stable Vancomycin Plan/Comments: Continue Current dose of 750 mg Q8H Pending Level: 02/19/25 @ 1130 Date/Time Labs Ordered Labs to be done on [date and time ordered]: 02/19/25 @ 1137
[2025-02-18] MEDS: Jevity 1.5 1,000 ML 45 ML GT (15:41)
[2025-02-19] VITALS (16 sets, daily range): BP systolic 82–132; BP diastolic 53–89; PULSE 72–91; RESP 14–19; TEMP 36.8–37; O2SAT 90–98; BMI 38.2
[2025-02-19] MEDS: Vancomycin HCl 750 MG in 0.9% Normal Saline (250mL Bag) 250 ML 250 MG IV (04:29)
[2025-02-19] MEDS: Piperacil/Tazobactam 3.375 GM in 0.9% Normal Saline (50mL MB+) 50 ML IV ×3 (05:59→21:18)
[2025-02-19 06:13] LABS: Hematocrit 26.8 % (40-54); Hemoglobin 8.2 g/dL (13.0-16.5); Immature Granulocytes Count 0.020 X10^3/uL (0.0-0.0); Mean Corp Hgb Conc 30.6 g/dL (32-36); Mean Corpuscular Volume 86.5 fL (80-94); Mean Platelet Vol. 9.3 fl (6.2-12.0); NRBC Flagged by Analyzer 0 % (0-5); Platelet Count 200 K/mm3 (150-450); RBC Distribution Width CV 18.3 % (11.6-14.6); RBC Distribution Width SD 58.7 fl (35.1-43.9); Red Blood Count 3.10 M/mm3 (4.6-6.2); White Blood Count 6.1 K/mm3 (4.4-11.0)
[2025-02-19] MEDS: GABAPENTIN 250 MG/5 ML SOLUTION 500 MG GT ×3 (06:22→17:08)
[2025-02-19 06:29] LABS: Anion Gap 8 (7-18); BUN 8 mg/dL (4-19); BUN/Creat Ratio 15.0 RATIO (10-20); Calcium,Total 7.5 mg/dL (7.6-11.0); Carbon Dioxide 22.8 mmol/L (20.0-29.0); Chloride 114 mmol/L (96-106); Estimated Creatinine Clearance 157.05 ml/min (50-250); Glucose 91 mg/dL (70-99); Potassium 3.4 mmol/L (3.5-5.1)
--- NOTE | 2025-02-19 07:02 | PCM.PN.INT ---
Assessment & Plan Assessment/Plan (1) Sepsis: PLAN: Plan RECOMMENDATIONS: 1. Continue antimicrobials to complete 7 days of therapy. 2. Vent support per home regimen. 3. Resume baseline HME today. 4. Lovenox for DVT prophylaxis. 5. Anticipate likely discharge tomorrow. IMPRESSIONS: 1. Chronic combined respiratory failure/sepsis secondary to suspected pneumonia The patient is at his baseline from a respiratory perspective on his home ventilator. Secretion output has improved. Will plan to transition the patient back to his home HME today and assess his oxygenation status. He will remain on his home ventilator support nightly. If the patient does well for the next 24 hours, he can likely be discharged home tomorrow on antimicrobials to complete 7 days of therapy. 2. Cerebral palsy with spastic quadriplegia/seizure disorder/GERD/anemia/history of candidal esophagitis/chronic anemia Complicates care, management, recovery and prognosis. Continue home medications as indicated. This note was generated with [employer] dictation software. It may contain incorrect words, spelling, and punctuation that were not noted in checking the note before signing. Subjective Subjective The patient was seen and examined at the bedside this morning. Events from the last 24 hours have been reviewed. The patient is currently afebrile, hemodynamically stable and maintaining appropriate oxygen saturations on home vent support. The patient's mother reported that he is improved clinically and is his baseline from a mental status perspective. White blood cell count is normal. Hemoglobin and platelet count are stable. Creatinine is within normal limits. Objective Data Objective Data The patient's most recent lab work, culture data and imaging studies have all been personally reviewed. Culture data has been negative to date. Vital Signs: Vital Signs Temp Pulse Resp BP Pulse Ox O2 Del Method O2 Flow Rate 98.8 F 74 17 98/66 94 Mechanical Ventilator 8 02/18/25 12:00 02/19/25 07:00 02/19/25 07:00 02/19/25 07:00 02/19/25 07:00 02/19/25 07:00 02/19/25 07:00 FiO2 81 02/16/25 11:10 Oxygen Flow Rate (L/min) 8 Oxygen Delivery Method Mechanical Ventilator Weight: 194 lb 7.163 oz Body Mass Index (BMI) 38.2 Intake & Output: Intake and Output for Last 24 Hours 02/17/25 02/18/25 02/19/25 23:59 23:59 23:59 Intake Total 3835.75 / 3835.75 2293 / 2413 655 / 655 Output Total 2350 / 2350 2150 / 2150 225 / 225 Balance 1485.75 / 1485.75 143 / 263 430 / 430 Lab / Micro Data Attestation: I reviewed the patient's lab results. 02/19/25 06:04 02/19/25 06:04 Labs: Laboratory Results - last 24 hr 02/18/25 12:30: Vancomycin Trough 18.1 H 02/19/25 06:04: WBC 6.1, RBC 3.10 L, Hgb 8.2 L, Hct 26.8 L, MCV 86.5, MCH 26.5 L, MCHC 30.6 L, RDW Std Deviation 58.7 H, RDW Coeff of Emilee 18.3 H, Plt Count 200, MPV 9.3, Immature Gran % (Auto) 0.300, Neut % (Auto) 57.6, Lymph % (Auto) 24.1, [place] % (Auto) 13.2 H, Eos % (Auto) 4.6, Baso % (Auto) 0.2, Absolute Neuts (auto) 3.5, Absolute Lymphs (auto) 1.48, Nucleated RBC % 0, Sodium 145, Potassium 3.4 L, Chloride 114 H, Carbon Dioxide 22.8, Anion Gap 8, BUN 8, Creatinine 0.56 L, Estim Creat Clear Calc 157.05, Est GFR (MDRD) Non-Af 125, BUN/Creatinine Ratio 15.0, Glucose 91, Calcium 7.5 L Micro: Microbiology 02/16/25 07:40 Blood Culture (Wb) - Port Blood Culture - Preliminary No growth in 48 hours. 02/16/25 07:12 Blood Culture (Wb) - Port Blood Culture - Preliminary No growth in 48 hours. 02/16/25 07:32 Urine Catheter - Catheter Urine Culture - Final Culture exhibits no growth. 02/17/25 07:10 Mucosa - Nasopharyngeal Respiratory Panel (PCR) - Final 02/16/25 07:22 Mucosa - Nose SARS-CoV-2, Influenza & RSV (PCR) - Final Physical Exam Const alert and no apparent distress Constitutional Narrative: Nonverbal at baseline. Mother remains at the bedside. HEENT head/scalp atraumatic and moist oral mucous membranes Eyes conjunctivae normal and no scleral icterus Neck supple Neck Narrative: Tracheostomy site intact. Chest inspection of chest normal Resp normal respiratory effort Auscultation: diminished lung sounds; Negative for rales, rhonchi or wheezes Cardio regular rate, regular rhythm, S1 normal heart sound and S2 normal heart sound GI normal to inspection, nondistended, normoactive bowel sounds Inspection: GI tube present Extremity Extremity Narrative: Baseline contractures noted. General Extremity: Negative for clubbing or edema Skin no rashes or lesions noted Neuro Neuro Narrative: Appears to be at his baseline from a neurologic perspective. Psych Mood & Affect: flat affect Charges/Coding Visit Charges Inpatient E&M: 13361 Subs Hosp L2
[2025-02-19] MEDS: ESOMEPRAZOLE MAGNESIUM 40 MG SUSPDR.PKT GT ×2 (08:27→21:18)
[2025-02-19] MEDS: MONTELUKAST 4 MG PO (08:28)
--- NOTE | 2025-02-19 08:47 | PN.HOSP_ITS ---
Reason for Visit Chief Complaint: tachycardia Subjective Subjective Patient was seen and examined today, his mother was in the room at the time my examination I talked with her about his care. Also talked with pulmonary medicine about his care. Objective Data Objective Data Vital Signs: Vital Signs Temp Pulse Resp BP Pulse Ox O2 Del Method O2 Flow Rate 98.8 F 74 17 98/66 94 Mechanical Ventilator 8 02/18/25 12:00 02/19/25 07:00 02/19/25 07:00 02/19/25 07:00 02/19/25 07:00 02/19/25 07:00 02/19/25 07:00 FiO2 81 02/16/25 11:10 Oxygen Flow Rate (L/min) 8 Oxygen Delivery Method Mechanical Ventilator Weight: 88.2 kg Body Mass Index (BMI) 38.2 Intake & Output: Intake and Output for Last 24 Hours 02/17/25 02/18/25 02/19/25 23:59 23:59 23:59 Intake Total 3835.75 / 3835.75 2293 / 2413 655 / 655 Output Total 2350 / 2350 2150 / 2150 225 / 225 Balance 1485.75 / 1485.75 143 / 263 430 / 430 Lab / Micro Data 02/19/25 06:04 02/19/25 06:04 Labs: Laboratory Results - last 24 hr 02/18/25 12:30: Vancomycin Trough 18.1 H 02/19/25 06:04: WBC 6.1, RBC 3.10 L, Hgb 8.2 L, Hct 26.8 L, MCV 86.5, MCH 26.5 L , MCHC 30.6 L, RDW Std Deviation 58.7 H, RDW Coeff of Emilee 18.3 H, Plt Count 200, MPV 9.3, Immature Gran % (Auto) 0.300, Neut % (Auto) 57.6, Lymph % (Auto) 24.1, [place] % (Auto) 13.2 H, Eos % (Auto) 4.6, Baso % (Auto) 0.2, Absolute Neuts (auto) 3.5, Absolute Lymphs (auto) 1.48, Nucleated RBC % 0, Sodium 145, Potassium 3.4 L , Chloride 114 H, Carbon Dioxide 22.8, Anion Gap 8, BUN 8, Creatinine 0.56 L, Estim Creat Clear Calc 157.05, Est GFR (MDRD) Non-Af 125, BUN/Creatinine Ratio 15.0, Glucose 91, Calcium 7.5 L Micro: Microbiology 02/16/25 07:40 Blood Culture (Wb) - Port Blood Culture - Preliminary No growth in 48 hours. 02/16/25 07:12 Blood Culture (Wb) - Port Blood Culture - Preliminary No growth in 48 hours. 02/16/25 07:32 Urine Catheter - Catheter Urine Culture - Final Culture exhibits no growth. 02/17/25 07:10 Mucosa - Nasopharyngeal Respiratory Panel (PCR) - Final 02/16/25 07:22 Mucosa - Nose SARS-CoV-2, Influenza & RSV (PCR) - Final Physical Exam Const alert and no apparent distress Constitutional Narrative: Patient has the appearance of cognitive impairment/IIDD General Appearance: well kempt Orientation / Consciousness: awake HEENT normocephalic, head/scalp atraumatic and moist oral mucous membranes Eyes PERRL, EOMs intact bilaterally and conjunctivae normal Neck no JVD and thyroid normal General: trachea midline Resp normal respiratory effort, no retractions and no use of accessory muscles Resp Narrative: Faint expiratory wheezes are noted bilaterally Auscultation: Negative for rales, rhonchi or wheezes Cardio regular rate, regular rhythm, S1 normal heart sound, S2 normal heart sound, no murmurs, no rub and no gallops GI normal to inspection, nondistended, normoactive bowel sounds, soft to palpation, non-tender and non-distended GI Narrative: Patient is a PEG tube Extremity Extremity Narrative: Atrophy and contraction of the lower extremities is noted Skin no rashes or lesions noted General Skin Exam: no breakdown Neuro CN's II-XII intact bilaterally Neuro Narrative: Patient shows evidence of cognitive impairment Sensorium / Orientation: awake Psych Psych Narrative: Patient has evidence of cognitive impairment Assessment & Plan Assessment/Plan (1) Sepsis: PLAN: Plan 1. Septic shock-on admission to hospital-patient's lactic acid was elevated at 6.9, patient remains on broad-spectrum antibiotics at this time, respiratory panel was unremarkable. Preliminary blood culture shows no growth in 48 hours. Critical care is participating in his care. #2 acute on chronic hypoxic respiratory failure-etiology unclear at this point, patient's chest x-ray showed no evidence of focal lung consolidation. Continue to monitor pulse ox, patient will be tried on humidified air during the day #3 seizure disorder-patient will remain on his home medication #4 cerebral palsy-complicates care, management, recovery, and prognosis #5 hypokalemia-patient will be given potassium supplementation as indicated #6 chronic anemia-etiology unclear, CBC will be monitored Total clinical time spent by myself addressing patient's medical issues, reviewing all of his data, and collaborating with the patient's care team: 35 minutes Charges/Coding Visit Charges Inpatient E&M: 54509 Subs Hosp L2
[2025-02-19] MEDS: Potassium Chloride Oral Soln 20 MEQ/15 ML UDC 40 MEQ PO (11:05)
[2025-02-19 12:00] LABS: Vancomycin, Trough Level 33.5 ug/mL (5.0-15.0)
--- NOTE | 2025-02-19 12:43 | PCM.RX.CS ---
Consult Antibiotic Management Pharmacy has been consulted to manage selected antibiotic: Vancomycin Type of Intervention Type of Consult: Follow-up Suspected Infection Suspected Infection: Sepsis Prior Doses of Antibiotics Prior Doses of Antibiotics Received/Current Regimen: Vancomycin 750 mg Q8H last dose given 02/19/25 @ 0429 Labs Labs: Sodium 145 mmol/L (135-145) 02/19/25 06:04 Potassium 3.4 mmol/L (3.5-5.1) L 02/19/25 06:04 Chloride 114 mmol/L (96-106) H 02/19/25 06:04 Carbon Dioxide 22.8 mmol/L (20.0-29.0) 02/19/25 06:04 Anion Gap 8 (7-18) 02/19/25 06:04 BUN 8 mg/dL (4-19) 02/19/25 06:04 Creatinine 0.56 mg/dL (0.70-1.20) L 02/19/25 06:04 Est GFR (MDRD) Non-Af 125 (>60) 02/19/25 06:04 BUN/Creatinine Ratio 15.0 RATIO (10-20) 02/19/25 06:04 Glucose 91 mg/dL (70-99) 02/19/25 06:04 Vancomycin Trough 33.5 ug/mL (5.0-15.0) H 02/19/25 11:10 Microbiology Microbiology: Microbiology 02/16/25 07:40 Blood Culture (Wb) - Port Blood Culture - Preliminary No growth in 48 hours. 02/16/25 07:12 Blood Culture (Wb) - Port Blood Culture - Preliminary No growth in 48 hours. 02/16/25 07:32 Urine Catheter - Catheter Urine Culture - Final Culture exhibits no growth. 02/17/25 07:10 Mucosa - Nasopharyngeal Respiratory Panel (PCR) - Final 02/16/25 07:22 Mucosa - Nose SARS-CoV-2, Influenza & RSV (PCR) - Final Dosing Weight Weight used for dosin.2 kg Estimated Creatinine Clearance Estimated Creatinine Clearance: ~ 157 Goal Trough Goal Trough: 15-20 mcg/mL Pharmacy Plan for Drug Dosing Pharmacy Plan for Drug Dosing: Vancomycin trough = 33.5, hold until random level tomorrow AM. Pharmacy Service will continue to monitor and adjust dosing as required. Follow-Up Labs Follow-Up Labs: Trough: Vancomycin Date/Time Labs Ordered Labs to be done on [date and time ordered]: 02/20/25 @ 0600
--- NOTE | 2025-02-19 13:33 | CASEMGMT ---
Home Health Per [facility], they provide SN/ST/OT. Per [facility], they provide private duty nursing services. RN CM updated. Jen Ibrahim DC Planning Asst.
[2025-02-19] MEDS: Jevity 1.5 1,000 ML 45 ML GT (15:09)
--- NOTE | 2025-02-19 15:27 | CASEMGMT ---
Discharge Planning [facility] sent to [facility]. Jen Ibrahim DC Planning Asst.
[2025-02-20] VITALS: BP 95/61; PULSE 63; RESP 12; O2SAT 96
[2025-02-20] MEDS: GABAPENTIN 250 MG/5 ML SOLUTION 500 MG GT ×2 (00:11→05:27)
--- NOTE | 2025-02-20 03:29 | NURSING ---
Around 2314, pt was noted to be throwing up contents that looked to be tube feed. At this time this RN turned the tube feed off, obtained a residual of 75ml, and flushed his gastric tube. Around 29 this RN obtained a follow up residual of 125ml. At this time this RN kept the tube feed off. Around 329 this RN turned the tube feed on at half the rate it was before being turned off (20ml/hr with Q4 hour 120ml flushes)
[2025-02-20 04:00] VITALS: PULSE 73
[2025-02-20] MEDS: Vancomycin Trough/Random Due 1 LAB MC (05:13)
[2025-02-20] MEDS: Piperacil/Tazobactam 3.375 GM in 0.9% Normal Saline (50mL MB+) 50 ML IV (05:21)
[2025-02-20] MEDS: 0.9% Saline Lock 10 ML Syringe IV (05:24)
--- NOTE | 2025-02-20 05:40 | PCM.PN.INT ---
Assessment & Plan Assessment/Plan (1) Sepsis: PLAN: Plan RECOMMENDATIONS: 1. Continue antimicrobials to complete 7 days of therapy. 2. Vent support per home regimen. 3. Lovenox for DVT prophylaxis. 4. Okay for discharge today with follow-up in the pulmonary medicine clinic on March 21, as scheduled. IMPRESSIONS: 1. Chronic combined respiratory failure/sepsis secondary to suspected pneumonia The patient is at his baseline from a respiratory perspective on his home ventilator. Secretion output has improved. He will remain on his home ventilator support nightly. At this time, the patient can be discharged home with antimicrobials to complete 7 days of therapy. He will follow-up in the pulmonary medicine clinic next month, as scheduled. 2. Cerebral palsy with spastic quadriplegia/seizure disorder/GERD/anemia/history of candidal esophagitis/chronic anemia Complicates care, management, recovery and prognosis. Continue home medications as indicated. This note was generated with [employer] dictation software. It may contain incorrect words, spelling, and punctuation that were not noted in checking the note before signing. Subjective Subjective The patient was seen and examined at the bedside this morning. Events from the last 24 hours have been reviewed. The patient is currently afebrile, hemodynamically stable and maintaining appropriate oxygen saturations on his home vent settings. The patient's mother reported that he had an emesis event overnight. However, he was able to tolerate his home HME throughout the day yesterday. Objective Data Objective Data The patient's most recent lab work, culture data and imaging studies have all been personally reviewed. Culture data has been negative to date. Vital Signs: Vital Signs Temp Pulse Resp BP Pulse Ox O2 Del Method O2 Flow Rate 98.5 F 73 12 95/61 96 Mechanical Ventilator 4 02/19/25 12:00 02/20/25 04:00 02/20/25 00:00 02/20/25 00:00 02/20/25 00:00 02/20/25 04:37 02/20/25 04:37 FiO2 81 02/16/25 11:10 Oxygen Flow Rate (L/min) 4 Oxygen Delivery Method Mechanical Ventilator Weight: 194 lb 7.163 oz Body Mass Index (BMI) 38.2 Intake & Output: Intake and Output for Last 24 Hours 02/18/25 02/19/25 02/20/25 23:59 23:59 23:59 Intake Total 2293 / 2413 2478.25 / 2478.25 210 / 210 Output Total 2150 / 2150 1225 / 1225 100 / 100 Balance 143 / 263 1253.25 / 1253.25 110 / 110 Lab / Micro Data Attestation: I reviewed the patient's lab results. 02/19/25 06:04 02/19/25 06:04 Labs: Laboratory Results - last 24 hr 02/19/25 06:04: WBC 6.1, RBC 3.10 L, Hgb 8.2 L, Hct 26.8 L, MCV 86.5, MCH 26.5 L, MCHC 30.6 L, RDW Std Deviation 58.7 H, RDW Coeff of Emilee 18.3 H, Plt Count 200, MPV 9.3, Immature Gran % (Auto) 0.300, Neut % (Auto) 57.6, Lymph % (Auto) 24.1, [place] % (Auto) 13.2 H, Eos % (Auto) 4.6, Baso % (Auto) 0.2, Absolute Neuts (auto) 3.5, Absolute Lymphs (auto) 1.48, Nucleated RBC % 0, Sodium 145, Potassium 3.4 L, Chloride 114 H, Carbon Dioxide 22.8, Anion Gap 8, BUN 8, Creatinine 0.56 L, Estim Creat Clear Calc 157.05, Est GFR (MDRD) Non-Af 125, BUN/Creatinine Ratio 15.0, Glucose 91, Calcium 7.5 L 02/19/25 11:10: Vancomycin Trough 33.5 H Micro: Microbiology 02/16/25 07:40 Blood Culture (Wb) - Port Blood Culture - Preliminary No growth in 48 hours. 02/16/25 07:12 Blood Culture (Wb) - Port Blood Culture - Preliminary No growth in 48 hours. 02/16/25 07:32 Urine Catheter - Catheter Urine Culture - Final Culture exhibits no growth. 02/17/25 07:10 Mucosa - Nasopharyngeal Respiratory Panel (PCR) - Final 02/16/25 07:22 Mucosa - Nose SARS-CoV-2, Influenza & RSV (PCR) - Final Physical Exam Const alert and no apparent distress Constitutional Narrative: Nonverbal at baseline. Mother remains at the bedside. HEENT head/scalp atraumatic and moist oral mucous membranes Eyes conjunctivae normal and no scleral icterus Neck supple Neck Narrative: Tracheostomy site intact. Chest inspection of chest normal Resp normal respiratory effort Auscultation: diminished lung sounds; Negative for rales, rhonchi or wheezes Cardio regular rate, regular rhythm, S1 normal heart sound and S2 normal heart sound GI normal to inspection, nondistended, normoactive bowel sounds Inspection: GI tube present Extremity Extremity Narrative: Baseline contractures noted. General Extremity: Negative for clubbing or edema Skin no rashes or lesions noted Neuro Neuro Narrative: Appears to be at his baseline from a neurologic perspective. Psych Mood & Affect: flat affect Charges/Coding Visit Charges Inpatient E&M: 43033 Subs Hosp L2
[2025-02-20 05:43] VITALS: BMI 37.5
[2025-02-20 05:48] LABS: Vancomycin, Random Level 25.5 ug/mL (0.0-15.0)
[2025-02-20 06:00] VITALS: BP 111/74; PULSE 70; RESP 14; TEMP 37.1; O2SAT 94
--- NOTE | 2025-02-20 06:29 | PCM.RX.CS ---
Consult Antibiotic Management Pharmacy has been consulted to manage selected antibiotic: Vancomycin Type of Intervention Type of Consult: Follow-up Suspected Infection Suspected Infection: Sepsis and Pneumonia Prior Doses of Antibiotics Prior Doses of Antibiotics Received/Current Regimen: Vancomycin 750 mg last given 02/19/25 @ 0429 Labs Labs: Sodium 145 mmol/L (135-145) 02/19/25 06:04 Potassium 3.4 mmol/L (3.5-5.1) L 02/19/25 06:04 Chloride 114 mmol/L (96-106) H 02/19/25 06:04 Carbon Dioxide 22.8 mmol/L (20.0-29.0) 02/19/25 06:04 Anion Gap 8 (7-18) 02/19/25 06:04 BUN 8 mg/dL (4-19) 02/19/25 06:04 Creatinine 0.56 mg/dL (0.70-1.20) L 02/19/25 06:04 Est GFR (MDRD) Non-Af 125 (>60) 02/19/25 06:04 BUN/Creatinine Ratio 15.0 RATIO (10-20) 02/19/25 06:04 Glucose 91 mg/dL (70-99) 02/19/25 06:04 Vancomycin Trough 33.5 ug/mL (5.0-15.0) H 02/19/25 11:10 Random Vancomycin 25.5 ug/mL (0.0-15.0) H 02/20/25 05:08 Microbiology Microbiology: Microbiology 02/16/25 07:40 Blood Culture (Wb) - Port Blood Culture - Preliminary No growth in 48 hours. 02/16/25 07:12 Blood Culture (Wb) - Port Blood Culture - Preliminary No growth in 48 hours. 02/16/25 07:32 Urine Catheter - Catheter Urine Culture - Final Culture exhibits no growth. 02/17/25 07:10 Mucosa - Nasopharyngeal Respiratory Panel (PCR) - Final 02/16/25 07:22 Mucosa - Nose SARS-CoV-2, Influenza & RSV (PCR) - Final Dosing Weight Weight used for dosin kg Estimated Creatinine Clearance Estimated Creatinine Clearance: ~ 157 Goal Trough Goal Trough: 15-20 mcg/mL Pharmacy Plan for Drug Dosing Pharmacy Plan for Drug Dosing: Vancomycin random level = 25.5, redraw random in ~ 14 hours Pharmacy Service will continue to monitor and adjust dosing as required. Follow-Up Labs Follow-Up Labs: Trough: Vancomycin Date/Time Labs Ordered Labs to be done on [date and time ordered]: 02/20/25 @ 1900
[2025-02-20 06:59] VITALS: O2SAT 97
[2025-02-20 07:38] VITALS: PULSE 71
--- NOTE | 2025-02-20 07:55 | PCM.DC ---
Discharge Instructions DC O2, CPAP, BIPAP needs Home O2 Discharge instructions: Yes Type of respiratory needs?: Oxygen Oxygen frequency: Continuous Continuous oxygen liters per minute: 3 L and With Sleeping Oxygen liters per minute when sleepin L Dressing / Incision Discharge Activity: Return to Normal Activity Weight Bearing Status: No weight bearing Follow Up Care Test Results: Test results from this visit will be discussed in further detail at your follow-up appointment, if applicable. Discharge Plan Admission Admit Date/Time: 02/16/25 09:21 Primary Reason for Your Visit: Septic shock Attending Provider: Camacho Gonzalez Primary Care Provider: Timmy Conn Consulting Providers: Krishna Siddiqui; Niranjan Hale; Jacek Monsalve; Mo Gonsalez; Yovanny Moreira; Michael Darden; Yane Lyn; Kalpesh Mayes; Roe Judge; Mckinley Tristan; Cari Cavazos; Zackary Castro; Jace Shipley; Rosa Benavides; Lew Hinds; Efe Maldonado; Jose Sheehan; Arminda King; Gris Hewitt; Patrice Langley; Elizabeth Herron; Mickie Solano; Camacho White; Damaris Norman; Crystal Multani; Enrico Ortega; Trena Herrmann; Damaris Hurst; Barry Rg; Jovi Christianson; Goran Rose; Emma Cole; Luis Mohr; Chase Mcbride; Tejinder Landin; Meliton Mobley; Aleksandra Amin; Bev Fritz; Flaquito Rider; Attila Escalera; Vito Bright; Rosie Corley; Luther Huggins; Cindy Alexandre; Vanessa Roberts Discharge Orders/Prescriptions Prescriptions: New levofloxacin 250 mg/10 mL solution 750 mg PO DAILY Qty: 900 0RF Rx Instructions: Start 02/20/2025 Continued albuterol sulfate 2.5 mg /3 mL (0.083 %) solution for nebulization 2.5 mg inhalation Q4H PRN (Reason: Sob &/Or Wheezing) cetirizine 1 mg/mL solution 10 mg feeding tube 1600 Qty: 480 11RF guaifenesin 200 mg/5 mL liquid 2 mg feeding tube 0830 PRN (Reason: COUGH/CONGESTION) Patient Comments: mom states giving 0.25ml to help with mucus plugs at 9am Ensure Original 0.04-1.05 gram-kcal/mL liquid 1,000 ml PO QDAY Rx Instructions: continuous g-tube (DME) oxygen concentrator See Rx Instructions .Route .MEDSUPPLY Qty: 1 0RF Rx Instructions: 1 dose MEDSUPPLY; As directed to maintain oxygen saturations of 89-92% metoclopramide HCl 5 mg/5 mL solution 10 mg feeding tube 0830,1600,2100 phenobarbital 20 MG/5 ML elixir 60 mg G-tube 0830,2100 Cough Assist 1 dose .Route .MEDSUPPLY Rx Instructions: Inspiratory and Expiratory times of 20-40 seconds with a 1-2 second pause. gabapentin 250 MG/5 ML solution 500 mg G-tube 0000,0600,1200,1800 Patient Comments: PER PT HOME MED LIST: GABAPENTIN DOSING -IF MO'S HEART RATE IS LOW I DON'T ALWAYS GIVE THE WHOLE 10ML GABAPENTIN DOSE MY GUIDES ARE: PULSE <50: I MIGHT WAIT 1 HOUR FOR HIM TO BE MORE AWAKE. GIVE 4 ML PULSE IN THE 50'S: GIVE 5ML OR 6 ML PULSE IN THE 60'S: GIVE 6ML TO 7ML PULSE 69>: GIVE THE WHOLE 10ML cholecalciferol (vitamin D3) 10 mcg/mL (400 unit/mL) drops 15 mcg feeding tube 0830 alum-mag hydroxide-simeth 200-200-20 mg/5 mL suspension 5 ml PO 0000,0600,1200,1800 PRN (Reason: ANTACID) acetaminophen 650 mg/20.3 mL suspension 650 mg feeding tube 0000,0600,1200,1800 PRN (Reason: PAIN ) baclofen 20 mg tablet 20 mg feeding tube Q6H Patient Comments: gets compounded suspension from [facility] pharm. ondansetron 4 mg tablet,disintegrating 4 mg PO Q8H PRN (Reason: NAUSEA/VOMITING) Qty: 30 0RF ipratropium-albuterol 0.5 mg-3 mg(2.5 mg base)/3 mL solution for nebulization 3 ml inhalation Q4H PRN (Reason: SOB &/OR WHEEZING) esomeprazole magnesium [Nexium Packet] [address] for susp in packet 40 mg G-tube BID lorazepam [Lorazepam Intensol] 2 mg/mL concentrate 2 mg feeding tube DAILY PRN (Reason: agitation) testosterone [AndroGel] 20.25 mg/1.25 gram (1.62 %) gel in metered-dose pump 1 pump topical QODAY Rx Instructions: apply 1 pump amount over max area of ONE upper arm and shoulder plecanatide 3 mg tablet 3 mg GT QODAY (DME) OXYGEN - Supplemental ([facility] INFORMATIONAL USE ONLY) 0 .ROUTE .MEDSUPPLY Patient Comments: 2lpm (DME) HOME VENTILATOR - ([facility] INFORMATIONAL USE ONLY) 0 .ROUTE .MEDSUPPLY montelukast [Singulair] 4 mg granules in packet 4 mg PO DAILY Qty: 90 3RF Referrals / Follow Up: Timmy Conn MD [Primary Care Provider, Family Practice] - See Referral Note Referral Note: At your regular appointment time Disposition Disposition (needs filled in before D/C Order can be placed): Home, Self Care
[2025-02-20] MEDS: PLECANATIDE 3 MG TABLET GT (07:57)
[2025-02-20] MEDS: MONTELUKAST 4 MG PO (07:57)
[2025-02-20] MEDS: ESOMEPRAZOLE MAGNESIUM 40 MG SUSPDR.PKT GT (07:58)
--- NOTE | 2025-02-20 08:42 | CASEMGMT ---
Discharge Planning DC Instructions sent via [facility] to [facility]. Jen Ibrahim, DC Planning Asst
[2025-02-20] MEDS: Potassium Chloride Oral Soln 20 MEQ/15 ML UDC 40 MEQ PO (09:21)
--- NOTE | 2025-02-20 09:37 | CASEMGMT ---
Pt has an order for DC placed. TC to pt's [facility] through [facility] (Shanthi @ [phone]). Shanthi notified that the pt will be discharging today and that transportation is set up for 1430 (by pt's RN). [facility] states that they will resume pt care tonight and requests DC Instructions to be faxed to [phone]. DC Instructions faxed successfully at this time. Per rounds, pt is on his home vent settings and no needs identified at this time. RN CM to the pt's room at this time. Pt's parents at the bedside. Pt's parents state that they have been in communication already with the pt's pvt duty aid as well as [facility]. Pt's parents state that the pvt duty aide will come out tonight and that [facility] will resume care tomorrow morning. Parents updated that [facility] will resume care tonight. Pt's parents deny any further questions, concerns, or needs at this time. Pt's RN updated. No further needs from CM identified.
--- NOTE | 2025-02-20 10:04 | DS.PCM_ITS ---
Providers Date of Admission: 02/16/25 Date of Discharge: 02/20/25 Primary Care Physician: Dr. Timmy Conn MD Consultations 02/16/25 10:47 Consult: Oven Baker / Pulmonary Medicine Routine Consulting Provider: Intensivists/Pulmonary Med Reason for Consult: septic shock per lactic acid criteria EMERGENT Consult: No MD Notified: Yes Date Notified: 02/16/25 Time Notified: 10:59 Method of Notification: Answering Service Method of Consult:: Telemedicine Reason For Visit: SEPSIS Diagnosis Discharge Diagnosis (1) Sepsis: Status: Acute Code(s): A41.9 - Sepsis, unspecified organism Plan 1. Septic shock-on admission to hospital-patient's lactic acid was elevated at 6.9, patient remains on broad-spectrum antibiotics at this time, respiratory panel was unremarkable. Preliminary blood culture shows no growth in 48 hours. Critical care is participating in his care. #2 acute on chronic hypoxic respiratory failure-etiology unclear at this point, patient's chest x-ray showed no evidence of focal lung consolidation. Continue to monitor pulse ox, patient will be tried on humidified air during the day #3 seizure disorder-patient will remain on his home medication #4 cerebral palsy-complicates care, management, recovery, and prognosis #5 hypokalemia-patient will be given potassium supplementation as indicated #6 chronic anemia-etiology unclear, CBC will be monitored Total clinical time spent by myself addressing patient's medical issues, reviewing all of his data, and collaborating with the patient's care team: 35 minutes Medications at Discharge Home Medications phenobarbital 20 mg/5 mL (4 mg/mL) oral elixir 60 mg G-tube 0830,2100 SEIZURES 02/19/17 metoclopramide HCl 5 mg/5 mL oral solution 10 mg feeding tube 0830,1600,2100 STOMACH 09/16/18 Cough Assist 1 dose .Route .MEDSUPPLY assist in clearing secretions 12/25/18 gabapentin 250 mg/5 mL oral solution 500 mg G-tube 0000,0600,1200,1800 SEIZURES 09/26/19 albuterol sulfate 2.5 mg/3 mL (0.083 %) solution for nebulization 2.5 mg inhalation Q4H PRN Sob &/Or Wheezing 11/27/20 cholecalciferol (vitamin D3) 10 mcg/mL (400 unit/mL) oral drops 15 mcg feeding tube 0830 SUPPLEMENT 03/24/22 acetaminophen 650 mg/20.3 mL oral suspension 650 mg feeding tube 0000,0600,1200,1800 PRN PAIN 10/24/22 aluminum-mag hydroxide-simethicone 200 mg-200 mg-20 mg/5 mL oral susp 5 ml PO 0000,0600,1200,1800 PRN ANTACID 10/24/22 baclofen 20 mg tablet 20 mg feeding tube Q6H MUSCLE SPASMS 12/10/22 ondansetron 4 mg disintegrating tablet 4 mg PO Q8H PRN NAUSEA/VOMITING #30 tabs 12/13/22 esomeprazole magnesium 40 mg granules delayed release for susp (Nexium Packet) 40 mg G-tube BID ACID REFLUX 03/23/23 ipratropium 0.5 mg-albuterol 3 mg (2.5 mg base)/3 mL nebulization soln 3 ml inhalation Q4H PRN SOB &/OR WHEEZING 03/23/23 cetirizine 1 mg/mL oral solution 10 mg (10 mL) feeding tube 1600 ALLERGIES #480 mL 09/30/23 lorazepam 2 mg/mL oral concentrate (Lorazepam Intensol) 2 mg feeding tube DAILY PRN agitation 01/04/24 food supplemt, lactose-reduced 0.04 gram-1.05 kcal/mL oral liquid (Ensure Original) 1,000 ml PO QDAY nutrition 04/04/24 guaifenesin 200 mg/5 mL oral liquid 2 mg feeding tube 0830 PRN COUGH/CONGESTION 04/04/24 oxygen concentrator #1 ea 09/29/24 montelukast 4 mg oral granules in packet (Singulair) 4 mg PO DAILY ASTHMA #90 ea 10/18/24 plecanatide 3 mg tablet 3 mg G-tube QODAY BOWELS 12/20/24 testosterone (AndroGel) 1 pump topical QODAY low testrone level 12/20/24 HOME VENTILATOR - ([facility] INFORMATIONAL USE ONLY) 02/16/25 OXYGEN - Supplemental ([facility] INFORM[facility] USE ONLY) 02/16/25 levofloxacin 250 mg/10 mL oral solution 750 mg (30 mL) PO DAILY #900 mL 02/20/25 Hospital Course Operations None Procedures None Summary of Care Provided Minutes Spent on Discharge: 31 Hospital Course: This 45-year-old white male was seen in the emergency room at [facility] with complaints of increased sputum production and tachycardia. Patient is nonverbal at baseline and has cerebral palsy, he is vent dependent at home while sleeping. Workup in the emergency room included a CBC which showed a white count of 16.3, hemoglobin was 11.9, lactic acid was elevated at 6.9, urinalysis showed no evidence of UTI chest x-ray showed reduced lung volumes bilaterally. Patient was admitted for septic shock from community-acquired pneumonia, he was treated with IV antibiotics and seen in consultation by critical care. Patient was transitioned over to humidified oxygen during the day and remained on the vent at night. Patient improved during his hospital stay, on 02/20/2025, patient was seen and examined:alert and no apparent distress Constitutional Narrative: Patient has the appearance of cognitive impairment/IIDD General Appearance: well kempt Orientation / Consciousness: awake HEENT normocephalic, head/scalp atraumatic and moist oral mucous membranes Eyes PERRL, EOMs intact bilaterally and conjunctivae normal Neck no JVD and thyroid normal General: trachea midline Resp normal respiratory effort, no retractions and no use of accessory muscles Resp Narrative: Faint expiratory wheezes are noted bilaterally Auscultation: Negative for rales, rhonchi or wheezes Cardio regular rate, regular rhythm, S1 normal heart sound, S2 normal heart sound, no murmurs, no rub and no gallops GI normal to inspection, nondistended, normoactive bowel sounds, soft to palpation, non-tender and non-distended GI Narrative: Patient is a PEG tube Extremity Extremity Narrative: Atrophy and contraction of the lower extremities is noted Skin no rashes or lesions noted General Skin Exam: no breakdown Neuro CN's II-XII intact bilaterally Neuro Narrative: Patient shows evidence of cognitive impairment Sensorium / Orientation: awake Psych Psych Narrative: Patient has evidence of cognitive impairment Patient was discharged home in stable condition on 02/20/2025 Weight / BMI Weight Weight: 86.7 kg Body Mass Index (BMI) 37.5 ABG / Lab / Microbiology Data 02/19/25 06:04 02/19/25 06:04 Laboratory: Laboratory Results - last 24 hr 02/19/25 11:10: Vancomycin Trough 33.5 H 02/20/25 05:08: Random Vancomycin 25.5 H Microbiology: Microbiology 02/16/25 07:40 Blood Culture (Wb) - Port Blood Culture - Final No growth in 5 days. 02/16/25 07:12 Blood Culture (Wb) - Port Blood Culture - Final No growth in 5 days. 02/16/25 07:32 Urine Catheter - Catheter Urine Culture - Final Culture exhibits no growth. 02/17/25 07:10 Mucosa - Nasopharyngeal Respiratory Panel (PCR) - Final 02/16/25 07:22 Mucosa - Nose SARS-CoV-2, Influenza & RSV (PCR) - Final D/C Instructions Weight Bearing Status: No weight bearing DC O2, CPAP, BIPAP Needs Home O2 Discharge instructions: Yes Type of respiratory needs?: Oxygen Oxygen frequency: Continuous Continuous oxygen liters per minute: 3 L and With Sleeping Oxygen liters per minute when sleepin L DC home with Oxygen: Yes Home O2 MD Review: I have reviewed the oxygen testing, and the patient qualifies for home oxygen equipment and portability. The patient is mobile in the home and the community. Meaningful Use Info Meaningful Use Meaningful Use Diagnoses (Choose all that apply): None applicable Discharge Plan Admission Admit Date/Time: 02/16/25 09:21 Primary Reason for Your Visit: Septic shock Attending Provider: Camacho Gonzalez Primary Care Provider: Timmy Conn Consulting Providers: Cindy Alexandre; Vanessa Roberts Discharge Orders/Prescriptions Prescriptions: New levofloxacin 250 mg/10 mL solution 750 mg PO DAILY Qty: 900 0RF Rx Instructions: Start 02/20/2025 Continued albuterol sulfate 2.5 mg /3 mL (0.083 %) solution for nebulization 2.5 mg inhalation Q4H PRN (Reason: Sob &/Or Wheezing) cetirizine 1 mg/mL solution 10 mg feeding tube 1600 Qty: 480 11RF guaifenesin 200 mg/5 mL liquid 2 mg feeding tube 0830 PRN (Reason: COUGH/CONGESTION) Patient Comments: mom states giving 0.25ml to help with mucus plugs at 9am Ensure Original 0.04-1.05 gram-kcal/mL liquid 1,000 ml PO QDAY Rx Instructions: continuous g-tube (DME) oxygen concentrator See Rx Instructions .Route .MEDSUPPLY Qty: 1 0RF Rx Instructions: 1 dose MEDSUPPLY; As directed to maintain oxygen saturations of 89-92% metoclopramide HCl 5 mg/5 mL solution 10 mg feeding tube 0830,1600,2100 phenobarbital 20 MG/5 ML elixir 60 mg G-tube 0830,2100 Cough Assist 1 dose .Route .MEDSUPPLY Rx Instructions: Inspiratory and Expiratory times of 20-40 seconds with a 1-2 second pause. gabapentin 250 MG/5 ML solution 500 mg G-tube 0000,0600,1200,1800 Patient Comments: PER PT HOME MED LIST: GABAPENTIN DOSING -IF MO'S HEART RATE IS LOW I DON'T ALWAYS GIVE THE WHOLE 10ML GABAPENTIN DOSE MY GUIDES ARE: PULSE <50: I MIGHT WAIT 1 HOUR FOR HIM TO BE MORE AWAKE. GIVE 4 ML PULSE IN THE 50'S: GIVE 5ML OR 6 ML PULSE IN THE 60'S: GIVE 6ML TO 7ML PULSE 69>: GIVE THE WHOLE 10ML cholecalciferol (vitamin D3) 10 mcg/mL (400 unit/mL) drops 15 mcg feeding tube 0830 alum-mag hydroxide-simeth 200-200-20 mg/5 mL suspension 5 ml PO 0000,0600,1200,1800 PRN (Reason: ANTACID) acetaminophen 650 mg/20.3 mL suspension 650 mg feeding tube 0000,0600,1200,1800 PRN (Reason: PAIN ) baclofen 20 mg tablet 20 mg feeding tube Q6H Patient Comments: gets compounded suspension from [facility] pharm. ondansetron 4 mg tablet,disintegrating 4 mg PO Q8H PRN (Reason: NAUSEA/VOMITING) Qty: 30 0RF ipratropium-albuterol 0.5 mg-3 mg(2.5 mg base)/3 mL solution for nebulization 3 ml inhalation Q4H PRN (Reason: SOB &/OR WHEEZING) esomeprazole magnesium [Nexium Packet] [address] for susp in packet 40 mg G-tube BID lorazepam [Lorazepam Intensol] 2 mg/mL concentrate 2 mg feeding tube DAILY PRN (Reason: agitation) testosterone [AndroGel] 20.25 mg/1.25 gram (1.62 %) gel in metered-dose pump 1 pump topical QODAY Rx Instructions: apply 1 pump amount over max area of ONE upper arm and shoulder plecanatide 3 mg tablet 3 mg GT QODAY (DME) OXYGEN - Supplemental ([facility] IN[facility] USE ONLY) 0 .ROUTE .MEDSUPPLY Patient Comments: 2lpm (DME) HOME VENTILATOR - ([facility] USE ONLY) 0 .ROUTE .MEDSUPPLY montelukast [Singulair] 4 mg granules in packet 4 mg PO DAILY Qty: 90 3RF Referrals / Follow Up: Timmy Conn MD [Primary Care Provider, Family Practice] - See Referral Note Referral Note: At your regular appointment time Disposition Disposition (needs filled in before D/C Order can be placed): Home, Self Care Charges/Coding Visit Charges Inpatient E&M: 03421 Disch Hosp >30min
[2025-02-20 12:00] VITALS: BP 81/57; PULSE 72; RESP 14; O2SAT 90
== END 2025-02-20 15:00 | disposition home or self-care (01) | DRG 871 ==
LOC: ED 09:27 → ICU 10:03
PROVIDERS: Internal Medicine; Internal Medicine Critical Care Medicine; Admitting Provider Student in an Organized Health Care Education/Training Program; Emergency Provider Emergency Medicine; PCP Family Medicine; Visit Provider Internal Medicine
DX: A41.9 Sepsis, unspecified organism (principal); J96.21 Acute and chronic respiratory failure with hypoxia; R65.21 Severe sepsis with septic shock; G80.0 Spastic quadriplegic cerebral palsy; J18.9 Pneumonia, unspecified organism; E87.20 Acidosis, unspecified; Z93.0 Tracheostomy status; R13.10 Dysphagia, unspecified; G40.909 Epilepsy, unspecified, not intractable, without status epilepticus; D64.9 Anemia, unspecified; Z93.3 Colostomy status; E87.6 Hypokalemia; K31.84 Gastroparesis; K21.9 Gastro-esophageal reflux disease without esophagitis; K59.00 Constipation, unspecified; Z93.1 Gastrostomy status; Z99.81 Dependence on supplemental oxygen; Z79.899 Other long term (current) drug therapy
CPT/HCPCS: 31720; 36591; 36600; 71045; 74177; 80048; 80053; 80202; 81001; 82803; 83605; 83735; 84100; 85025; 85610; 85730; 87040; 87086; 87631; 87633; 93005; 94762; 97802; 99285; A4216